=== PATIENT | male | born 1960 | race Caucasian/White ===

== ENCOUNTER 2022-10-02 14:19 | Outpatient (OUT) | payer BC, SELFPAY | END 2022-10-02 14:20 | LOC: WC 14:20 | PROVIDERS: PCP Podiatrist Foot & Ankle Surgery; Visit Provider Podiatrist Foot & Ankle Surgery | DX: T81.89XA Other complications of procedures, not elsewhere classified, initial encounter (principal) | CPT/HCPCS: 11042; 97605 ==

== ENCOUNTER 2022-10-22 14:34 | Outpatient (OUT) | payer BC, SELFPAY | END 2022-10-22 14:35 | disposition home or self-care (01) | LOC: WC 14:34 | PROVIDERS: PCP Podiatrist Foot & Ankle Surgery; Visit Provider Physician Assistant | DX: T81.89XA Other complications of procedures, not elsewhere classified, initial encounter (principal); E11.51 Type 2 diabetes mellitus with diabetic peripheral angiopathy without gangrene; E11.42 Type 2 diabetes mellitus with diabetic 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; R60.0 Localized edema; L60.3 Nail dystrophy; M86.672 Other chronic osteomyelitis, left ankle and foot; I73.9 Peripheral vascular disease, unspecified; M79.672 Pain in left foot; D50.9 Iron deficiency anemia, unspecified; L03.116 Cellulitis of left lower limb; E08.22 Diabetes mellitus due to underlying condition with diabetic chronic kidney disease; N18.30 Chronic kidney disease, stage 3 unspecified; M24.572 Contracture, left ankle; J44.9 Chronic obstructive pulmonary disease, unspecified; M21.6X2 Other acquired deformities of left foot; F32.9 Major depressive disorder, single episode, unspecified; E11.621 Type 2 diabetes mellitus with foot ulcer; E11.65 Type 2 diabetes mellitus with hyperglycemia; E11.69 Type 2 diabetes mellitus with other specified complication; I10 Essential (primary) hypertension; T14.8XXA Other injury of unspecified body region, initial encounter; G90.09 Other idiopathic peripheral autonomic neuropathy; E66.01 Morbid (severe) obesity due to excess calories; M86.162 Other acute osteomyelitis, left tibia and fibula; L40.8 Other psoriasis; L97.422 Non-pressure chronic ulcer of left heel and midfoot with fat layer exposed; I87.2 Venous insufficiency (chronic) (peripheral) | CPT/HCPCS: A6213; G0463 ==

== ENCOUNTER 2022-10-24 16:15 | Outpatient (REF) | payer BC, SELFPAY ==
[2022-10-24 17:44] LABS: Estimated Average Glucose 318 mg/dL; Glycohemoglobin A1C 12.7 % (4.5-6.2)
[2022-10-24 17:54] LABS: Alanine Aminotransferase 42 U/L (16-63); Albumin Globulin Ratio 0.6; Albumin Level 2.9 g/dL (3.4-5.0); Alkaline Phosphatase 145 U/L (46-116); Anion Gap 19.4; Aspartate Amino Transferase 31 U/L (15-37); Basophils Absolute Auto 0.1 10^3/uL (0.0-0.1); Basophils Percent Auto 0.8 % (0.2-2.0); Bilirubin Direct 0.1 mg/dL (0.0-0.2); Bilirubin Total 0.3 mg/dL (0.2-1.0); Carbon Dioxide 18.6 mmol/L (21.0-32.0); Chloride 100 mmol/L (98-107); Eosinophils Absolute Auto 0.9 10^3/uL (0.0-0.7); Eosinophils Percent Auto 6.5 % (0.9-7.0); Estimated GFR (African America 19 (>=60); Estimated GFR (Non-African Ame 15 (>=60); Globulin 5.2 g/dL; Hematocrit 44.3 % (42.0-54.0); Hemoglobin 13.8 g/dL (14.0-18.0); Immature Granulocytes Abs Auto 0.17 10^3/uL (0.00-0.03); Immature Granulocytes Pct Auto 1.3 % (0.0-0.5); Lymphocytes Absolute Auto 2.7 10^3/uL (1.2-3.8); Lymphocytes Percent Auto 20.3 % (20.5-60.0); Mean Corpuscular HGB Conc 31.2 g/dL (29.9-35.2); Mean Corpuscular Hemoglobin 29.5 pg (25.9-34.0); Mean Corpuscular Volume 94.7 fL (80.0-94.0); Monocytes Absolute Auto 1.3 10^3/uL (0.3-0.8); Monocytes Percent Auto 9.9 % (1.7-12.0); Neutrophils Absolute Auto 8.1 10^3/uL (1.4-6.5); Neutrophils Percent Auto 61.2 % (43.0-75.0); Platelet Count 312 10^3/uL (150-450); Red Blood Count 4.68 10^6/uL (4.70-6.10); Red Cell Distribution Width 15.5 % (11.0-15.0); Sodium 133 mmol/L (136-145); Thyroid Stimulating Hormone 1.575 uIU/mL (0.358-3.740); Total Protein 8.1 g/dL (6.4-8.2); White Blood Count 13.3 10^3/uL (4.0-11.0)
[2022-10-24 18:02] LABS: Erythrocyte Sedimentation Rate >130 mm/hr (<=20)
== END 2022-10-24 16:16 | disposition home or self-care (01) ==
LOC: LAB 16:15
PROVIDERS: PCP Podiatrist Foot & Ankle Surgery
DX: K76.9 Liver disease, unspecified (principal); E11.65 Type 2 diabetes mellitus with hyperglycemia; R63.4 Abnormal weight loss; R53.83 Other fatigue; I50.42 Chronic combined systolic (congestive) and diastolic (congestive) heart failure; Z79.899 Other long term (current) drug therapy
CPT/HCPCS: 36415; 80051; 80076; 82565; 83036; 83880; 84443; 84520; 85025; 85652

== ENCOUNTER 2022-11-05 13:52 | Outpatient (OUT) | payer BC, SELFPAY | END 2022-11-05 13:53 | disposition home or self-care (01) | LOC: WC 13:52 | PROVIDERS: PCP Podiatrist Foot & Ankle Surgery; Visit Provider Physician Assistant | DX: T81.89XA Other complications of procedures, not elsewhere classified, initial encounter (principal) | CPT/HCPCS: 11043; 97605 ==

== ENCOUNTER 2022-11-20 10:44 | Outpatient (OUT) | payer BC, SELFPAY | END 2022-11-20 10:45 | disposition home or self-care (01) | LOC: WC 10:45 | PROVIDERS: PCP Podiatrist Foot & Ankle Surgery; Visit Provider Podiatrist Foot & Ankle Surgery | DX: E11.621 Type 2 diabetes mellitus with foot ulcer (principal); L97.422 Non-pressure chronic ulcer of left heel and midfoot with fat layer exposed; T81.89XA Other complications of procedures, not elsewhere classified, initial encounter; L89.891 Pressure ulcer of other site, stage 1 | CPT/HCPCS: 11042; 97605 ==

== ENCOUNTER 2022-12-11 13:54 | Outpatient (OUT) | payer BC, SELFPAY | END 2022-12-11 13:55 | disposition home or self-care (01) | LOC: WC 13:54 | PROVIDERS: PCP Podiatrist Foot & Ankle Surgery; Visit Provider Podiatrist Foot & Ankle Surgery | DX: E11.621 Type 2 diabetes mellitus with foot ulcer (principal); L97.422 Non-pressure chronic ulcer of left heel and midfoot with fat layer exposed | CPT/HCPCS: 11042; 97605; A6213 ==

== ENCOUNTER 2023-01-02 13:31 | Outpatient (OUT) | payer BC, SELFPAY | END 2023-01-02 13:32 | disposition home or self-care (01) | LOC: WC 13:31 | PROVIDERS: PCP Podiatrist Foot & Ankle Surgery; Visit Provider Podiatrist Foot & Ankle Surgery | DX: E11.621 Type 2 diabetes mellitus with foot ulcer (principal); L97.422 Non-pressure chronic ulcer of left heel and midfoot with fat layer exposed; L89.892 Pressure ulcer of other site, stage 2 | CPT/HCPCS: 11042; A6213 ==

== ENCOUNTER 2023-01-28 14:46 | Observation (INO) | payer BC, SELFPAY ==
[2023-01-28] VITALS (7 sets, daily range): BP systolic 137–165; BP diastolic 69–81; PULSE 60–102; RESP 16–18; TEMP 36.4–36.6; O2SAT 96–99; BMI 29.8; BMI 33.4
--- NOTE | 2023-01-28 14:57 | US_ITS ---
The [address] [address] Patient Name: RASHARD TAN MRN: [id number] date: 1960 Sex: M Assigned Patient Location: ER Current Patient Location: ER Accession/Order Number: [id number] Exam Date: 01/28/2023 15:30 Report Date: 01/28/2023 16:33 At the request of: ALEXANDER CERNA Procedure: US venous doppler LE LT EXAM: US venous doppler LE LT HISTORY: Pain, swelling and redness and the left leg for 4 days. COMPARISON: 07/09/2019 TECHNIQUE: Multiple sonographic images of the deep veins of the left lower extremity were obtained, supplemented with Doppler. FINDINGS: The deep veins of the left lower extremity are fairly well-visualized from the groin to the mid calf. No filling defect is identified to indicate a thrombus. There is normal compression and augmentation to flow. Incidentally noted are small nodular structures in the left groin and calf, which are not simple cyst. US/US venous doppler LE LT IMPRESSION: There is no direct or indirect evidence of deep vein thrombosis in the left lower extremity at this time. A small nodular structures are noted in the left groin and calf with diminished echogenicity. The etiology is uncertain. These are not cysts. Clinical correlation is recommended. A follow-up ultrasound examination of these areas in 2-3 months is recommended. Electronically authenticated by: CHINO CABALLERO Date: 01/28/2023 16:33
--- NOTE | 2023-01-28 14:59 | ED.GENADUL1 ---
Documented by User: KIM Hatch 01/28/23 17:49 HPI - General Adult General Chief complaint: Extremity Injury, Lower Stated complaint: L LEG SWOLLEN Time Seen by Provider: 01/28/23 14:53 Source: patient Mode of arrival: Wheelchair History of Present Illness HPI narrative: patient is a 62-year-old male to history of diabetes who presents to the emergency department for the evaluation of redness to the left lower leg. Patient was seen at the wound care clinic just prior to arrival for management of his wound at the site of a previous transmetatarsal amputation. He had a wound VAC on as the wound has been improving significantly, this was recently taken off in the last week. Patient developed redness, warmth to the left proximal tibia. He denies any pain. He has had no fevers but states he generally does not feel well. His PCP started him on doxycycline three days ago. Related Data Home Medications Medication Instructions Recorded Confirmed apremilast 30 mg tablet (Otezla) 30 mg PO BID 01/28/23 01/28/23 bupropion HCl 300 mg 24 hr tablet, 300 mg PO .QD 01/28/23 01/28/23 extended release doxycycline hyclate 100 mg capsule 100 mg PO Q12H 01/28/23 01/28/23 duloxetine 60 mg capsule,delayed 60 mg PO .QD 01/28/23 01/28/23 release empagliflozin 25 mg tablet 25 mg PO QDAY 01/28/23 01/28/23 (Jardiance) famotidine 20 mg tablet 40 mg PO .QHS 01/28/23 01/28/23 finerenone 10 mg tablet (Kerendia) 10 mg PO QDAY 01/28/23 01/28/23 lidocaine HCl 2 % mucosal solution 01/28/23 (Lidocaine Viscous) methotrexate sodium 2.5 mg tablet 2.5 mg PO QWEEK 01/28/23 01/28/23 midodrine 10 mg tablet 10 mg PO TID 01/28/23 01/28/23 montelukast 10 mg tablet 10 mg PO .QHS 01/28/23 01/28/23 omeprazole 40 mg capsule,delayed 40 mg PO .ACB 01/28/23 01/28/23 release ondansetron 4 mg disintegrating 4 mg translingual Q8H 01/28/23 01/28/23 tablet rosuvastatin 20 mg tablet 20 mg PO QPM 01/28/23 01/28/23 tirzepatide 2.5 mg/0.5 mL 2.5 mg subcut QWEEK 01/28/23 01/28/23 subcutaneous pen injector (Mounjaro) vitamin B complex and vitamin C 1 cap PO QDAY 01/28/23 01/28/23 no.20-folic acid 1 mg capsule (Renal Caps) Allergies Allergy/AdvReac Type Severity Reaction Status Date / Time No Known Drug Allergies Allergy Verified 01/28/23 14:57 Review of Systems ROS Constitutional Denies: fever or chills Cardiovascular Denies: chest pain Respiratory Denies: shortness of breath Gastrointestinal Denies: abdominal pain, nausea or vomiting Integumentary/Breast Reports: rash, redness, skin pain and skin tenderness Neurological Denies: headache Allergic/Immunologic Denies: hives PFSH PFS Medical History (Updated 01/28/23 @ 18:20 by Carol Hager RN) Arteriovenous fistula of right upper extremity ?I77.0 - Arteriovenous fistula, acquired (ICD-10) Chronic kidney disease ?N18.9 - Chronic kidney disease, unspecified (ICD-10) Diabetes ?E11.9 - Type 2 diabetes mellitus without complications (ICD-10) Hyperlipidemia ?E78.5 - Hyperlipidemia, unspecified (ICD-10) Surgical History (Updated 01/28/23 @ 18:20 by Carol Hager RN) Amputation of left great toe ?S98.112A - Complete traumatic amputation of left great toe, initial encounter (ICD-10) History of appendectomy ?Z90.49 - Acquired absence of other specified parts of digestive tract (ICD-10) History of cholecystectomy ?Z90.49 - Acquired absence of other specified parts of digestive tract (ICD-10) Family History (Updated 01/28/23 @ 18:21 by Carol Hager RN) Mother Family history of CHF (congestive heart failure) Family history of diabetes mellitus Family history of hypertension Grandfather Family history of stroke Social History (Updated 01/28/23 @ 18:22 by Carol Hager RN) Within the past year, how often did you have a drink containing alcohol: never Score interpretation: A score less than 4 is consistent with normal alcohol consumption. Smoking status: Former smoker Non-prescribed substance use: denies use Exam Narrative Exam Narrative: Gen.: Awake, alert, in no distress Head: Normocephalic, atraumatic ENT: Moist mucous membranes Respiratory: No respiratory distress Extremities: transmetatarsal amputation of the left foot with dressing intact to the foot and ankle. Erythema that is almost circumferential to the proximal tibia. No open wounds or drainage. Left lower leg with dry skin that is flaky. No drainage from the calf noted. Erythema to the proximal anterior tibia is warm, bright red with some extension to the distal left thigh Psych: Normal mood and affect Neuro: No focal neuro deficit Skin: Warm, dry Constitutional Vital Signs, click to edit/add: Last Vital Signs Temp 97.6 F 01/28/23 18:11 Pulse 82 01/28/23 19:00 Resp 18 01/28/23 18:11 BP 165/81 H 01/28/23 18:11 Pulse Ox 97 01/28/23 18:11 O2 Del Method Room Air 01/28/23 18:11 Course Vital Signs Vital signs: Vital Signs Temperature 97.7 F 01/28/23 14:52 Pulse Rate 102 H 01/28/23 14:52 Respiratory Rate 16 01/28/23 14:52 Blood Pressure 139/78 01/28/23 14:52 Pulse Oximetry 99 01/28/23 14:52 Oxygen Delivery Method Room Air 01/28/23 14:52 Temperature 97.6 F 01/28/23 18:11 Pulse Rate 82 01/28/23 19:00 Respiratory Rate 18 01/28/23 18:11 Blood Pressure 165/81 H 01/28/23 18:11 Pulse Oximetry 97 01/28/23 18:11 Oxygen Delivery Method Room Air 01/28/23 18:11 Medical Decision Making MDM Narrative Medical decision making narrative: patient medicated with IV fluids, Zosyn, vancomycin. He declined any medication for pain but did feel nauseous in the Emergency Room and was given Zofran. His vital signs are stable, labs including blood cultures were obtained. White blood cell count and lactic acid are normal. CRP and sedimentation rate are elevated. Ultrasound with no evidence of deep vein thrombosis although there is an incidental nodular finding in the groin that the patient will need to have rescanned in 2-3 months. patient was reevaluated by attending physician, he is agreeable to staying for IV antibiotics. I did discuss this with Dr. Jara ([id number]) as well as Dr. Oconnor ([id number]) who accepted the patient for admission for hospitalist service. Patient is stable at time of admission. Medical Records Medical records reviewed: Yes I reviewed the patient's medical records Lab Data Lab results reviewed: Yes I reviewed the patient's lab results Labs: Lab Results 01/28/23 Range/Units 15:15 WBC 13.1 H (4.0-11.0) 10^3/uL RBC 4.57 L (4.70-6.10) 10^6/uL Hgb 13.2 L (14.0-18.0) g/dL Hct 41.6 L (42.0-54.0) % MCV 91.0 (80.0-94.0) fL MCH 28.9 (25.9-34.0) pg MCHC 31.7 (29.9-35.2) g/dL RDW 14.7 (11.0-15.0) % Plt Count 322 (150-450) 10^3/uL MPV 9.5 (9.5-13.5) fL Neut % (Auto) 70.2 (43.0-75.0) % Lymph % (Auto) 15.5 L (20.5-60.0) % [place] % (Auto) 10.3 (1.7-12.0) % Eos % (Auto) 3.2 (0.9-7.0) % Baso % (Auto) 0.2 (0.2-2.0) % Neut # (Auto) 9.2 H (1.4-6.5) 10^3/uL Lymph # (Auto) 2.0 (1.2-3.8) 10^3/uL [place] # (Auto) 1.4 H (0.3-0.8) 10^3/uL Eos # (Auto) 0.4 (0.0-0.7) 10^3/uL Baso # (Auto) 0.0 (0.0-0.1) 10^3/uL Abs Immat Gran (auto) 0.08 H (0.00-0.03) 10^3/uL Imm/Tot Granulo (auto) 0.6 H (0.0-0.5) % ESR >130 H (<=20) mm/hr PT 10.2 (9.0-11.6) sec INR 0.96 VBG pH 7.301 L (7.330-7.430) VBG pCO2 41.6 (40.0-52.0) mmHg Sodium 136 (136-145) mmol/L Potassium 4.4 (3.5-5.1) mmol/L Chloride 102 (98-107) mmol/L Carbon Dioxide 22.3 (21.0-32.0) mmol/L Anion Gap 16.1 BUN 42.0 H (7.0-18.0) mg/dL Creatinine 2.99 H (0.70-1.30) mg/dL Est GFR ( Amer) 26 L (>=60) Est GFR (Non-Af Amer) 21 L (>=60) BUN/Creatinine Ratio 14.0 Glucose 189 H (74-106) mg/dL Lactate 1.1 (0.4-2.0) mmol/L Calcium 9.3 (8.5-10.1) mg/dL Total Bilirubin 0.2 (0.2-1.0) mg/dL AST 25 (15-37) U/L ALT 34 (16-63) U/L Alkaline Phosphatase 127 H (46-116) U/L C-Reactive Protein <0.2 (<=1.0) mg/dL Total Protein 7.6 (6.4-8.2) g/dL Albumin 2.3 L (3.4-5.0) g/dL Globulin 5.3 g/dL Albumin/Globulin Ratio 0.4 Imaging Data Venous US: Attestation: I have reviewed the pertinent imaging results. Discharge Plan Discharge Chief Complaint: Extremity Injury, Lower Clinical Impression: Cellulitis of left leg Patient Disposition: Admitted As Inpatient Time of Disposition Decision: 17:48 Condition: Good Discharge Date/Time: 01/28/23 18:03 Documented by User: Ari Lee MD 01/28/23 20:25 HPI - General Adult General Chief complaint: Extremity Injury, Lower Stated complaint: L LEG SWOLLEN Time Seen by Provider: 01/28/23 14:53 Related Data Home Medications Medication Instructions Recorded Confirmed apremilast 30 mg tablet (Otezla) 30 mg PO BID 01/28/23 01/28/23 bupropion HCl 300 mg 24 hr tablet, 300 mg PO .QD 01/28/23 01/28/23 extended release doxycycline hyclate 100 mg capsule 100 mg PO Q12H 01/28/23 01/28/23 duloxetine 60 mg capsule,delayed 60 mg PO .QD 01/28/23 01/28/23 release empagliflozin 25 mg tablet 25 mg PO QDAY 01/28/23 01/28/23 (Jardiance) famotidine 20 mg tablet 40 mg PO .QHS 01/28/23 01/28/23 finerenone 10 mg tablet (Kerendia) 10 mg PO QDAY 01/28/23 01/28/23 lidocaine HCl 2 % mucosal solution 01/28/23 (Lidocaine Viscous) methotrexate sodium 2.5 mg tablet 2.5 mg PO QWEEK 01/28/23 01/28/23 midodrine 10 mg tablet 10 mg PO TID 01/28/23 01/28/23 montelukast 10 mg tablet 10 mg PO .QHS 01/28/23 01/28/23 omeprazole 40 mg capsule,delayed 40 mg PO .ACB 01/28/23 01/28/23 release ondansetron 4 mg disintegrating 4 mg translingual Q8H 01/28/23 01/28/23 tablet rosuvastatin 20 mg tablet 20 mg PO QPM 01/28/23 01/28/23 tirzepatide 2.5 mg/0.5 mL 2.5 mg subcut QWEEK 01/28/23 01/28/23 subcutaneous pen injector (Mounjaro) vitamin B complex and vitamin C 1 cap PO QDAY 01/28/23 01/28/23 no.20-folic acid 1 mg capsule (Renal Caps) Allergies Allergy/AdvReac Type Severity Reaction Status Date / Time No Known Drug Allergies Allergy Verified 01/28/23 14:57 PFSH [facility] Medical History (Updated 01/28/23 @ 18:20 by Carol Hager RN) Arteriovenous fistula of right upper extremity ?I77.0 - Arteriovenous fistula, acquired (ICD-10) Chronic kidney disease ?N18.9 - Chronic kidney disease, unspecified (ICD-10) Diabetes ?E11.9 - Type 2 diabetes mellitus without complications (ICD-10) Hyperlipidemia ?E78.5 - Hyperlipidemia, unspecified (ICD-10) Surgical History (Updated 01/28/23 @ 18:20 by Carol Hager RN) Amputation of left great toe ?S98.112A - Complete traumatic amputation of left great toe, initial encounter (ICD-10) History of appendectomy ?Z90.49 - Acquired absence of other specified parts of digestive tract (ICD-10) History of cholecystectomy ?Z90.49 - Acquired absence of other specified parts of digestive tract (ICD-10) Family History (Updated 01/28/23 @ 18:21 by Carol Hager RN) Mother Family history of CHF (congestive heart failure) Family history of diabetes mellitus Family history of hypertension Grandfather Family history of stroke Social History (Updated 01/28/23 @ 18:22 by Carol Hager RN) Within the past year, how often did you have a drink containing alcohol: never Score interpretation: A score less than 4 is consistent with normal alcohol consumption. Smoking status: Former smoker Non-prescribed substance use: denies use Exam Constitutional Vital Signs, click to edit/add: Last Vital Signs Temp 97.6 F 01/28/23 18:11 Pulse 82 01/28/23 19:00 Resp 18 01/28/23 18:11 BP 165/81 H 01/28/23 18:11 Pulse Ox 97 01/28/23 18:11 O2 Del Method Room Air 01/28/23 18:11 Course Vital Signs Vital signs: Vital Signs Temperature 97.7 F 01/28/23 14:52 Pulse Rate 102 H 01/28/23 14:52 Respiratory Rate 16 01/28/23 14:52 Blood Pressure 139/78 01/28/23 14:52 Pulse Oximetry 99 01/28/23 14:52 Oxygen Delivery Method Room Air 01/28/23 14:52 Temperature 97.6 F 01/28/23 18:11 Pulse Rate 82 01/28/23 19:00 Respiratory Rate 18 01/28/23 18:11 Blood Pressure 165/81 H 01/28/23 18:11 Pulse Oximetry 97 01/28/23 18:11 Oxygen Delivery Method Room Air 01/28/23 18:11 Medical Decision Making MDM Narrative Medical decision making narrative: patient medicated with IV fluids, Zosyn, vancomycin. He declined any medication for pain but did feel nauseous in the Emergency Room and was given Zofran. His vital signs are stable, labs including blood cultures were obtained. White blood cell count and lactic acid are normal. CRP and sedimentation rate are elevated. Ultrasound with no evidence of deep vein thrombosis although there is an incidental nodular finding in the groin that the patient will need to have rescanned in 2-3 months. patient was reevaluated by attending physician, he is agreeable to staying for IV antibiotics. I did discuss this with Dr. Jara ([id number]) as well as Dr. Oconnor ([id number]) who accepted the patient for admission for hospitalist service. Patient is stable at time of admission. I, Dr Lee, have reviewed the above progress note and course of action in the ER; agree with the above. I have personally seen and evaluated this patient, gone over history and physical, and discussed disposition and treatment plan with the patient. Lab Data Labs: Lab Results 01/28/23 Range/Units 15:15 WBC 13.1 H (4.0-11.0) 10^3/uL RBC 4.57 L (4.70-6.10) 10^6/uL Hgb 13.2 L (14.0-18.0) g/dL Hct 41.6 L (42.0-54.0) % MCV 91.0 (80.0-94.0) fL MCH 28.9 (25.9-34.0) pg MCHC 31.7 (29.9-35.2) g/dL RDW 14.7 (11.0-15.0) % Plt Count 322 (150-450) 10^3/uL MPV 9.5 (9.5-13.5) fL Neut % (Auto) 70.2 (43.0-75.0) % Lymph % (Auto) 15.5 L (20.5-60.0) % [place] % (Auto) 10.3 (1.7-12.0) % Eos % (Auto) 3.2 (0.9-7.0) % Baso % (Auto) 0.2 (0.2-2.0) % Neut # (Auto) 9.2 H (1.4-6.5) 10^3/uL Lymph # (Auto) 2.0 (1.2-3.8) 10^3/uL [place] # (Auto) 1.4 H (0.3-0.8) 10^3/uL Eos # (Auto) 0.4 (0.0-0.7) 10^3/uL Baso # (Auto) 0.0 (0.0-0.1) 10^3/uL Abs Immat Gran (auto) 0.08 H (0.00-0.03) 10^3/uL Imm/Tot Granulo (auto) 0.6 H (0.0-0.5) % ESR >130 H (<=20) mm/hr PT 10.2 (9.0-11.6) sec INR 0.96 VBG pH 7.301 L (7.330-7.430) VBG pCO2 41.6 (40.0-52.0) mmHg Sodium 136 (136-145) mmol/L Potassium 4.4 (3.5-5.1) mmol/L Chloride 102 (98-107) mmol/L Carbon Dioxide 22.3 (21.0-32.0) mmol/L Anion Gap 16.1 BUN 42.0 H (7.0-18.0) mg/dL Creatinine 2.99 H (0.70-1.30) mg/dL Est GFR ( Amer) 26 L (>=60) Est GFR (Non-Af Amer) 21 L (>=60) BUN/Creatinine Ratio 14.0 Glucose 189 H (74-106) mg/dL Lactate 1.1 (0.4-2.0) mmol/L Calcium 9.3 (8.5-10.1) mg/dL Total Bilirubin 0.2 (0.2-1.0) mg/dL AST 25 (15-37) U/L ALT 34 (16-63) U/L Alkaline Phosphatase 127 H (46-116) U/L C-Reactive Protein <0.2 (<=1.0) mg/dL Total Protein 7.6 (6.4-8.2) g/dL Albumin 2.3 L (3.4-5.0) g/dL Globulin 5.3 g/dL Albumin/Globulin Ratio 0.4 Discharge Plan Discharge Chief Complaint: Extremity Injury, Lower Clinical Impression: Cellulitis of left leg Patient Disposition: Admitted As Inpatient Time of Disposition Decision: 17:48 Condition: Good Discharge Date/Time: 01/28/23 18:03
[2023-01-28] MEDS: 0.9 % SODIUM CHLORIDE 1,000 ML 999 ML IV (15:32)
[2023-01-28] MEDS: PIPERACILLIN SODIUM/TAZOBACTAM 4.5 GM in 0.9 % SODIUM CHLORIDE 50 ML IV (15:33)
[2023-01-28 15:54] LABS: PCO2 VBG 41.6 mmHg (40.0-52.0); pH VBG 7.301 (7.330-7.430)
[2023-01-28 15:57] LABS: Basophils Percent Auto 0.2 % (0.2-2.0); Eosinophils Absolute Auto 0.4 10^3/uL (0.0-0.7); Eosinophils Percent Auto 3.2 % (0.9-7.0); Hematocrit 41.6 % (42.0-54.0); Hemoglobin 13.2 g/dL (14.0-18.0); Immature Granulocytes Abs Auto 0.08 10^3/uL (0.00-0.03); Immature Granulocytes Pct Auto 0.6 % (0.0-0.5); Lymphocytes Percent Auto 15.5 % (20.5-60.0); Mean Corpuscular HGB Conc 31.7 g/dL (29.9-35.2); Mean Corpuscular Hemoglobin 28.9 pg (25.9-34.0); Mean Platelet Volume 9.5 fL (9.5-13.5); Monocytes Absolute Auto 1.4 10^3/uL (0.3-0.8); Monocytes Percent Auto 10.3 % (1.7-12.0); Neutrophils Absolute Auto 9.2 10^3/uL (1.4-6.5); Neutrophils Percent Auto 70.2 % (43.0-75.0); Platelet Count 322 10^3/uL (150-450); Red Blood Count 4.57 10^6/uL (4.70-6.10); Red Cell Distribution Width 14.7 % (11.0-15.0); White Blood Count 13.1 10^3/uL (4.0-11.0)
[2023-01-28 16:01] LABS: Erythrocyte Sedimentation Rate >130 mm/hr (<=20)
[2023-01-28 16:07] LABS: INR 0.96; Prothrombin Time 10.2 sec (9.0-11.6)
[2023-01-28 16:08] LABS: Alanine Aminotransferase 34 U/L (16-63); Albumin Globulin Ratio 0.4; Albumin Level 2.3 g/dL (3.4-5.0); Alkaline Phosphatase 127 U/L (46-116); Anion Gap 16.1; Aspartate Amino Transferase 25 U/L (15-37); Bilirubin Total 0.2 mg/dL (0.2-1.0); C Reactive Protein <0.2 mg/dL (<=1.0); Calcium 9.3 mg/dL (8.5-10.1); Carbon Dioxide 22.3 mmol/L (21.0-32.0); Chloride 102 mmol/L (98-107); Estimated GFR (African America 26 (>=60); Estimated GFR (Non-African Ame 21 (>=60); Globulin 5.3 g/dL; Glucose 189 mg/dL (74-106); Potassium 4.4 mmol/L (3.5-5.1); Sodium 136 mmol/L (136-145); Total Protein 7.6 g/dL (6.4-8.2)
[2023-01-28 16:11] LABS: Lactate/Lactic Acid 1.1 mmol/L (0.4-2.0)
[2023-01-28] MEDS: VANCOMYCIN HCL 1,000 MG in 0.9 % SODIUM CHLORIDE 500 ML 250 MG IV (16:39)
[2023-01-28] MEDS: ONDANSETRON PF 4 MG/2 ML VIAL IV (17:27)
[2023-01-28 20:21] LABS: Glucometer 191 mg/dL (74-106)
[2023-01-28] MEDS: INSULIN ASPART 300 UNIT/3 ML PEN SUBQ (21:23)
[2023-01-28] MEDS: MONTELUKAST SODIUM 10 MG TABLET PO (21:24)
[2023-01-28] MEDS: FAMOTIDINE 20 MG TABLET 40 MG PO (21:24)
[2023-01-28] MEDS: HEPARIN SODIUM (PORCINE) 5,000 UNIT/ML VIAL 5000 UNIT SUBQ (21:24)
--- NOTE | 2023-01-28 22:45 | PC.NURSE ---
Dressing to left foot removed. Patient has no toes to left foot. Open area to bottom below big toe. No active drainage observed. Very small open area observed. Telfa applied over open area. Foot wrapped with kerlex dressing. Redness observed going up inner right side of left to around knee cap. Patient states it's starting to itch .
[2023-01-28] MEDS: 0.9 % SODIUM CHLORIDE 250 ML IV.SOLN 30 ML IV (23:00)
[2023-01-28] MEDS: PIPERACILLIN SODIUM/TAZOBACTAM 3.375 GM in 0.9 % SODIUM CHLORIDE 50 ML IV (23:14)
[2023-01-29] VITALS (18 sets, daily range): BP systolic 99–149; BP diastolic 66–79; PULSE 72–98; RESP 18–20; TEMP 36.6–36.8; O2SAT 97
[2023-01-29] MEDS: OXYCODONE HCL 5 MG TABLET PO (00:30)
[2023-01-29] MEDS: HEPARIN SODIUM (PORCINE) 5,000 UNIT/ML VIAL 5000 UNIT SUBQ ×3 (04:59→19:55)
[2023-01-29 06:04] LABS: Basophils Absolute Auto 0.1 10^3/uL (0.0-0.1); Basophils Percent Auto 0.4 % (0.2-2.0); Eosinophils Absolute Auto 0.6 10^3/uL (0.0-0.7); Eosinophils Percent Auto 4.8 % (0.9-7.0); Hematocrit 39.6 % (42.0-54.0); Hemoglobin 12.2 g/dL (14.0-18.0); Immature Granulocytes Abs Auto 0.14 10^3/uL (0.00-0.03); Immature Granulocytes Pct Auto 1.1 % (0.0-0.5); Lymphocytes Absolute Auto 2.6 10^3/uL (1.2-3.8); Lymphocytes Percent Auto 20.9 % (20.5-60.0); Mean Corpuscular HGB Conc 30.8 g/dL (29.9-35.2); Mean Corpuscular Hemoglobin 28.3 pg (25.9-34.0); Mean Corpuscular Volume 91.9 fL (80.0-94.0); Mean Platelet Volume 9.6 fL (9.5-13.5); Monocytes Absolute Auto 0.9 10^3/uL (0.3-0.8); Monocytes Percent Auto 7.6 % (1.7-12.0); Neutrophils Absolute Auto 8.1 10^3/uL (1.4-6.5); Neutrophils Percent Auto 65.2 % (43.0-75.0); Platelet Count 327 10^3/uL (150-450); Red Blood Count 4.31 10^6/uL (4.70-6.10); Red Cell Distribution Width 14.6 % (11.0-15.0); White Blood Count 12.4 10^3/uL (4.0-11.0)
[2023-01-29 06:23] LABS: Alanine Aminotransferase 31 U/L (16-63); Albumin Globulin Ratio 0.5; Albumin Level 2.3 g/dL (3.4-5.0); Alkaline Phosphatase 119 U/L (46-116); Aspartate Amino Transferase 25 U/L (15-37); BUN Creatinine Ratio 13.1; Bilirubin Total 0.3 mg/dL (0.2-1.0); Calcium 9.2 mg/dL (8.5-10.1); Carbon Dioxide 19.2 mmol/L (21.0-32.0); Chloride 103 mmol/L (98-107); Estimated GFR (African America 25 (>=60); Estimated GFR (Non-African Ame 21 (>=60); Glucose 95 mg/dL (74-106); Potassium 4.2 mmol/L (3.5-5.1); Sodium 135 mmol/L (136-145); Total Protein 7.3 g/dL (6.4-8.2)
[2023-01-29] MEDS: OMEPRAZOLE 40 MG CAPSULE.DR PO (06:25)
[2023-01-29] MEDS: PIPERACILLIN SODIUM/TAZOBACTAM 3.375 GM in 0.9 % SODIUM CHLORIDE 50 ML IV ×3 (07:28→23:02)
[2023-01-29] MEDS: BUPROPION HCL 150 MG XL TABLET 24H 300 MG PO (08:36)
[2023-01-29] MEDS: DULOXETINE HCL 60 MG CAPSULE.DR PO (08:37)
[2023-01-29] MEDS: LACTATED RINGER'S SOLUTION 1,000 ML 100 ML IV ×2 (08:37→19:18)
[2023-01-29 11:11] LABS: Glucometer 94 mg/dL (74-106)
--- NOTE | 2023-01-29 11:59 | CM.NOTE ---
Rounds made with Dr. Oconnor. Await Podiatry Consult for plan.
--- NOTE | 2023-01-29 13:14 | W.PM.WC ---
Wound Consult Note Assessment and Plan (1) Cellulitis of left leg: Plan Patient seen for wound consult left plantar foot. Patient was seen in outpatient wound clinic yesterday and found to have cellulitis to left lower leg from knee down to foot. Patient was also not feeling well at that time. He was sent to ER for evaluation. Patient seen today for assessment. Redness in LLE has improved since yesterday as well as warmth and pain. Patient reports he feels better today overall, just tired. Patient with open ulcer remaining on left plantar foot. Size has improved since yesterday. Small open area noted measuring 0.3cmx0.3cmx0.2cm. Periwound intact with gentian gonzalo in place. Collagen remains in place since yesterday as well. Applied ABD and kerlix to foot today. Will continue dressing changes every other day. Resume collagen once discharged. No photos taken of ulcer today due to technical difficulties. Please call [phone] with any questions or concerns.
[2023-01-29] MEDS: VANCOMYCIN HCL 1,000 MG in 0.9 % SODIUM CHLORIDE 250 ML 250 MG IV (13:50)
--- NOTE | 2023-01-29 14:17 | SWNOTE1 ---
Pt is current with [facility] , nursing comes in 3x a week.
[2023-01-29 15:49] LABS: Glucometer 224 mg/dL (74-106)
--- NOTE | 2023-01-29 16:21 | P.HP_ITS ---
H&P: HPI History of Present Illness Chief complaint: L LEG SWOLLEN, Cellulitis of Left Leg Narrative: 62 y o male presents with pain,swelling, erythema of his RLE that extended upto his knees, started abvout a week ago and was started on Keflex as outpatient for it. He noticed worsening of his symptoms while on abx and reports generalized malaise, fatigue and pain all over and was sent to ED after he visit wound care and podiatry office for removal of wound vac for old non healing wound from [facility] for diabetic foot infection. He was started on IV vancomycin and zosyn and admitted for sepsis sec to cellulitis after failing outpatient oral abx therapy. This morning when I saw him, there is considerable improvement in his erythema, swelling and pain but there is still some left over erythema that extends upto his knees. Denies fever,chills Feeling better than yesterday. Review of Systems ROS Status of ROS 10 or more systems reviewed and unremarkable except as noted in history and below [facility] Medical History Arteriovenous fistula of right upper extremity ?I77.0 - Arteriovenous fistula, acquired (ICD-10) Chronic kidney disease ?N18.9 - Chronic kidney disease, unspecified (ICD-10) Diabetes ?E11.9 - Type 2 diabetes mellitus without complications (ICD-10) Hyperlipidemia ?E78.5 - Hyperlipidemia, unspecified (ICD-10) Immunocompromised ?D84.9 - Immunodeficiency, unspecified (ICD-10) Psoriasis ?L40.9 - Psoriasis, unspecified (ICD-10) Sepsis ?A41.9 - Sepsis, unspecified organism (ICD-10) Surgical History Amputation of left great toe ?S98.112A - Complete traumatic amputation of left great toe, initial encounter (ICD-10) History of appendectomy ?Z90.49 - Acquired absence of other specified parts of digestive tract (ICD- 10) History of cholecystectomy ?Z90.49 - Acquired absence of other specified parts of digestive tract (ICD- 10) History of transmetatarsal amputation of foot ?Z89.439 - Acquired absence of unspecified foot (ICD-10) Family History Mother Family history of CHF (congestive heart failure) Family history of diabetes mellitus Family history of hypertension Grandfather Family history of stroke Social History Within the past year, how often did you have a drink containing alcohol: never Score interpretation: A score less than 4 is consistent with normal alcohol consumption. Smoking status: Former smoker Non-prescribed substance use: denies use Meds Home Medications and Allergies Home Medications Medication Instructions Recorded Confirmed Type apremilast 30 mg tablet (Otezla) 30 mg PO BID 01/28/23 01/28/23 History bupropion HCl 300 mg 24 hr tablet, 300 mg PO .QD 01/28/23 History extended release doxycycline hyclate 100 mg capsule 100 mg PO BID 01/28/23 01/29/23 History duloxetine 60 mg capsule,delayed 60 mg PO .QD 01/28/23 01/28/23 History release empagliflozin 25 mg tablet 25 mg PO QDAY 01/28/23 01/28/23 History (Jardiance) finerenone 10 mg tablet (Kerendia) 10 mg PO QDAY 01/28/23 01/28/23 History midodrine 10 mg tablet 10 mg PO TID 01/28/23 01/28/23 History montelukast 10 mg tablet 10 mg PO .QHS 01/28/23 01/28/23 History omeprazole 40 mg capsule,delayed 40 mg PO .ACB 01/28/23 01/28/23 History release ondansetron 4 mg disintegrating 4 mg translingual Q8H 01/28/23 01/28/23 History tablet rosuvastatin 20 mg tablet 20 mg PO QPM 01/28/23 01/28/23 History tirzepatide 2.5 mg/0.5 mL 2.5 mg subcut QWEEK 01/28/23 01/28/23 History subcutaneous pen injector (Mounjaro) vitamin B complex and vitamin C 1 cap PO QDAY 01/28/23 01/28/23 History no.20-folic acid 1 mg capsule (Renal Caps) famotidine 40 mg tablet (Pepcid) 40 mg PO .qhs 01/29/23 01/29/23 History Allergies Allergy/AdvReac Type Severity Reaction Status Date / Time No Known Drug Allergies Allergy Verified 01/28/23 14:57 Exam Constitutional Vital Signs, click to edit/add: Last Vital Signs Temp 97.9 F 01/29/23 13:56 Pulse 85 01/29/23 13:56 Resp 18 01/29/23 13:56 BP 147/66 H 01/29/23 13:56 Pulse Ox 97 01/29/23 13:56 O2 Del Method Room Air 01/29/23 13:56 Documenting provider has reviewed patient's vital signs: yes Common normals: no apparent distress and oriented x3 General appearance: cooperative [facility] Common normals: normocephalic and head/scalp atraumatic Head and scalp: normocephalic and atraumatic Eye Common normals: conjunctivae normal and no scleral icterus Conjunctiva: conjunctiva(e) normal Respiratory Common normals: normal respiratory effort and clear to auscultation bilaterally Effort & inspection: able to speak in complete sentences Auscultation: clear to auscultation bilaterally Cardio Common normals: regular rate, S1 normal heart sound and S2 normal heart sound Rate: regular rate Heart sounds: S1 normal and S2 normal GI Common normals: Normal to inspection, nondistended, normoactive bowel sounds present, soft to palpation, non-tender and no hepatosplenomegaly Palpation: soft and no hepatosplenomegaly Extremity Right lower extremity: lower leg (erythema, tenderness extending from ankle upto knee joint) and foot and digits (TMA, small one cm open wound on dorsum of foot. ) Neuro Common normals: oriented x3, moves all extremities and no focal motor deficits Psych Common normals: mental status grossly normal, denies hallucinations, denies homicidal ideation and denies suicidal ideation Results Labs Labs: Short CBC 01/29/23 Range/Units 05:16 WBC 12.4 H (4.0-11.0) 10^3/uL Hgb 12.2 L (14.0-18.0) g/dL Hct 39.6 L (42.0-54.0) % Plt Count 327 (150-450) 10^3/uL BMP 01/29/23 05:16 Sodium 135 L Potassium 4.2 Chloride 103 Carbon Dioxide 19.2 L BUN 40.0 H Creatinine 3.06 H Glucose 95 Calcium 9.2 Liver Function 01/29/23 Range/Units 05:16 Total Bilirubin 0.3 (0.2-1.0) mg/dL AST 25 (15-37) U/L ALT 31 (16-63) U/L Alkaline Phosphatase 119 H (46-116) U/L Albumin 2.3 L (3.4-5.0) g/dL ABG ABG results: 01/28/23 15:15 VBG pH 7.301 L VBG pCO2 41.6 Assessment and Plan Assessment and Plan (1) Cellulitis of right leg: Assessment and Plan: RLE cellulitis, failed outpatient oral abx therapy. On IV vancomycin/zosyn. Significant improvement while on broad spectrum abx but still has sig erythema. C/w same. Monitor closely. F/u cx. (2) Diabetes: Assessment and Plan: C/w SSI while inpaitent. 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 (4) Psoriasis: Assessment and Plan: On apremilast and Mtx. C/w same (5) Immunocompromised: Assessment and Plan: Due to Mtx and Aprelimast. At high risk of infections from resistant organisms. Monitor closely. Fu cx. (6) Hyperlipidemia: Assessment and Plan: C/w statin
[2023-01-29] MEDS: INSULIN ASPART 300 UNIT/3 ML PEN SUBQ ×2 (17:28→21:43)
[2023-01-29] MEDS: POLYETHYLENE GLYCOL 3350 17 GM POWDER PACKET PO (17:31)
[2023-01-29] MEDS: DOCUSATE SODIUM 100 MG CAPSULE PO (17:31)
[2023-01-29] MEDS: ATORVASTATIN CALCIUM 40 MG TABLET PO (19:55)
--- NOTE | 2023-01-29 21:36 | PC.NURSE ---
Pt denies having any chest discomfort or does not feel any strange rhythm. Pt stated, he was asleep . enamel dipper checked patches and the white patch coming off. Replaced patch and explained to pt if he feels anything strange or painful in his chest to let us know. Will be monitoring. Maren Santoyo RN
[2023-01-29] MEDS: MONTELUKAST SODIUM 10 MG TABLET PO (21:39)
[2023-01-29] MEDS: FAMOTIDINE 20 MG TABLET 40 MG PO (21:39)
[2023-01-29 21:43] LABS: Glucometer 247 mg/dL (74-106)
[2023-01-30 01:45] VITALS: PULSE 76
[2023-01-30 03:35] VITALS: PULSE 75
[2023-01-30] MEDS: HEPARIN SODIUM (PORCINE) 5,000 UNIT/ML VIAL 5000 UNIT SUBQ (04:20)
[2023-01-30 04:40] LABS: Basophils Percent Auto 0.4 % (0.2-2.0); Eosinophils Absolute Auto 0.5 10^3/uL (0.0-0.7); Eosinophils Percent Auto 5.1 % (0.9-7.0); Hematocrit 34.5 % (42.0-54.0); Hemoglobin 10.6 g/dL (14.0-18.0); Immature Granulocytes Abs Auto 0.18 10^3/uL (0.00-0.03); Lymphocytes Absolute Auto 1.8 10^3/uL (1.2-3.8); Lymphocytes Percent Auto 19.3 % (20.5-60.0); Mean Corpuscular HGB Conc 30.7 g/dL (29.9-35.2); Mean Corpuscular Volume 91.3 fL (80.0-94.0); Monocytes Absolute Auto 0.8 10^3/uL (0.3-0.8); Monocytes Percent Auto 9.1 % (1.7-12.0); Neutrophils Absolute Auto 5.9 10^3/uL (1.4-6.5); Neutrophils Percent Auto 64.1 % (43.0-75.0); Platelet Count 301 10^3/uL (150-450); Red Blood Count 3.78 10^6/uL (4.70-6.10); Red Cell Distribution Width 14.5 % (11.0-15.0); White Blood Count 9.2 10^3/uL (4.0-11.0)
[2023-01-30 04:57] LABS: Alanine Aminotransferase 14 U/L (16-63); Albumin Globulin Ratio 0.4; Albumin Level 1.9 g/dL (3.4-5.0); Alkaline Phosphatase 92 U/L (46-116); Anion Gap 12.1; Aspartate Amino Transferase 17 U/L (15-37); BUN Creatinine Ratio 12.9; Bilirubin Total 0.3 mg/dL (0.2-1.0); Calcium 8.3 mg/dL (8.5-10.1); Carbon Dioxide 22.2 mmol/L (21.0-32.0); Chloride 105 mmol/L (98-107); Estimated GFR (African America 26 (>=60); Estimated GFR (Non-African Ame 21 (>=60); Globulin 4.3 g/dL; Glucose 130 mg/dL (74-106); Potassium 4.3 mmol/L (3.5-5.1); Sodium 135 mmol/L (136-145); Total Protein 6.2 g/dL (6.4-8.2)
[2023-01-30 05:16] VITALS: BP 147/73; PULSE 79; RESP 20; TEMP 36.6; O2SAT 96
[2023-01-30 05:54] VITALS: PULSE 84
--- NOTE | 2023-01-30 05:55 | PC.NURSE ---
Monitor shows SR with occasional PVcs noted.
[2023-01-30 07:00] VITALS: PULSE 96
[2023-01-30] MEDS: OMEPRAZOLE 40 MG CAPSULE.DR PO (08:20)
[2023-01-30] MEDS: LACTATED RINGER'S SOLUTION 1,000 ML 100 ML IV (08:20)
[2023-01-30] MEDS: Apremilast [Otezla] 30 MG 30 EACH PO (08:21)
[2023-01-30] MEDS: PIPERACILLIN SODIUM/TAZOBACTAM 3.375 GM in 0.9 % SODIUM CHLORIDE 50 ML IV (08:25)
[2023-01-30 09:00] VITALS: PULSE 84
--- NOTE | 2023-01-30 09:53 | P.DS_ITS ---
DS: Providers Provider Date of admission: 01/28/23 18:03 Primary care physician: Imer Zambrano Consults: 01/28/23 17:47 Consult to Podiatry Routine Consulting Provider: Imer Zambrano Reason for consultation: Cellulitis Attending physician on discharge: Shaikh Elvin Discharging clinician: Shaikh Elvin Anticipated date of discharge: 01/30/23 DS: Diagnosis Discharge Diagnosis (1) Cellulitis of left leg: Assessment and plan: P/w cellulitis of left leg - treated with IV vancomycin/Zosyn as failed outpatient oral abx, immunocompromised status. Improved significantly over the course of hospital stay and is stable to go home on oral Clindamycin (2) Diabetes: Assessment and plan: Patient should not be on Farxiga with hx of recurrent diabetic foot infection and prior TMA as SGLT2 inhibitors are avoided in patients with hx of amputation. C/w rest of his medications. I am also on the fence about Mounjaro with his current renal function as there is very high risk of MARISOL, worsening renal function with GLP/GIP agonists in patients with CKD 4-5 I will recommend stopping those on discharge and defer further care to his PCP who can f/u with him as outpatient. C/w basal/bolus insulin as before. (3) Chronic kidney disease: Assessment and plan: CKD 4-5 Follow up with Nephrology. (4) Psoriasis: Assessment and plan: Stable. C/w home meds. (5) Hyperlipidemia: Assessment and plan: c/w statin DS: Summary Hospital Course Hospital Course: 62 y o male presents with pain, swelling, erythema of his LLE that extended upto his knees, started abvout a week ago and was started on Keflex as outpatient for it. He noticed worsening of his symptoms while on abx and and was sent to ED from wound care. He was started on IV vancomycin and Zosyn and admitted for cellulitis after failing outpatient oral abx therapy. Patient had considerable improvement in erythema, swelling and pain over the course of hospital stay and is stable for discharge on oral Clindamycin. Status at Discharge Functional status at discharge: independent ambulation Overall status at discharge: patient is back to baseline Time Spent with Patient Time attestation: Total time spent providing and/or coordinating discharge services: Time spent: greater than 30 minutes Exam Constitutional Vital Signs, click to edit/add: Last Vital Signs Temp 97.8 F 01/30/23 05:16 Pulse 96 H 01/30/23 07:00 Resp 20 01/30/23 05:16 BP 147/73 H 01/30/23 05:16 Pulse Ox 96 01/30/23 05:16 O2 Del Method Room Air 01/30/23 05:16 Documenting provider has reviewed patient's vital signs: yes Common normals: no apparent distress and oriented x3 General appearance: cooperative [facility] Common normals: normocephalic and head/scalp atraumatic Head and scalp: normocephalic and atraumatic Eye Common normals: conjunctivae normal and no scleral icterus Conjunctiva: conjunctiva(e) normal Respiratory Common normals: normal respiratory effort and clear to auscultation bilaterally Effort & inspection: able to speak in complete sentences Auscultation: clear to auscultation bilaterally Cardio Common normals: regular rate, S1 normal heart sound and S2 normal heart sound Rate: regular rate Heart sounds: S1 normal and S2 normal GI Common normals: Normal to inspection, nondistended, normoactive bowel sounds present, soft to palpation, non-tender and no hepatosplenomegaly Palpation: soft and no hepatosplenomegaly Extremity Other: Left leg cellulitis more or less resolved with minimal residual erythema noted. Neuro Common normals: oriented x3, moves all extremities and no focal motor deficits Psych Common normals: mental status grossly normal, denies hallucinations, denies homicidal ideation and denies suicidal ideation DS: Data Data Completed and Pending Labs on day of discharge: Labs from last 24 hours 01/30/23 01/29/23 01/29/23 04:05 21:42 15:47 WBC 9.2 RBC 3.78 L Hgb 10.6 L Hct 34.5 L MCV 91.3 MCH 28.0 MCHC 30.7 RDW 14.5 Plt Count 301 MPV 9.0 L Neut % (Auto) 64.1 Lymph % (Auto) 19.3 L Roosevelt % (Auto) 9.1 Eos % (Auto) 5.1 Baso % (Auto) 0.4 Neut # (Auto) 5.9 Lymph # (Auto) 1.8 Roosevelt # (Auto) 0.8 Eos # (Auto) 0.5 Baso # (Auto) 0.0 Abs Immat Gran (auto) 0.18 H Imm/Tot Granulo (auto) 2.0 H Sodium 135 L Potassium 4.3 Chloride 105 Carbon Dioxide 22.2 Anion Gap 12.1 BUN 39.0 H Creatinine 3.03 H Est GFR ( Amer) 26 L Est GFR (Non-Af Amer) 21 L BUN/Creatinine Ratio 12.9 Glucose 130 H Calcium 8.3 L Total Bilirubin 0.3 AST 17 ALT 14 L Alkaline Phosphatase 92 Total Protein 6.2 L Albumin 1.9 L Globulin 4.3 Albumin/Globulin Ratio 0.4 POC Glucose 247 H 224 H 01/29/23 11:10 WBC RBC Hgb Hct MCV MCH MCHC RDW Plt Count MPV Neut % (Auto) Lymph % (Auto) Roosevelt % (Auto) Eos % (Auto) Baso % (Auto) Neut # (Auto) Lymph # (Auto) Roosevelt # (Auto) Eos # (Auto) Baso # (Auto) Abs Immat Gran (auto) Imm/Tot Granulo (auto) Sodium Potassium Chloride Carbon Dioxide Anion Gap BUN Creatinine Est GFR ( Amer) Est GFR (Non-Af Amer) BUN/Creatinine Ratio Glucose Calcium Total Bilirubin AST ALT Alkaline Phosphatase Total Protein Albumin Globulin Albumin/Globulin Ratio POC Glucose 94 Discharge Plan Discharge Disposition: Home, Self-Care Condition: Good Discharge Medications: New clindamycin HCl 300 mg capsule 300 mg PO Q6H 7 Days Qty: 28 0RF Continued omeprazole 40 mg capsule,delayed release(DR/EC) 40 mg PO .ACB montelukast 10 mg tablet 10 mg PO .QHS Renal Caps 1 mg capsule 1 cap PO QDAY rosuvastatin 20 mg tablet 20 mg PO QPM Otezla 30 mg tablet 30 mg PO QDAY Kerendia 10 mg tablet 10 mg PO QDAY famotidine [Pepcid] 40 mg tablet 40 mg PO .qhs tiotropium bromide [Spiriva with HandiHaler] 18 mcg capsule, w/inhalation device 1 cap inhalation DAILY PRN (Reason: shortness of breath or wheezing) Rx Instructions: puncture 1 cap using device; one dose = 2 inhalations insulin degludec [Tresiba FlexTouch U-200] 200 unit/mL (3 mL) insulin pen 110 unit subcut DAILY insulin lispro [Humalog KwikPen Insulin] 100 unit/mL insulin pen 1 sliding scale dose subcut AC Rx Instructions: 2-6 units per sliding scale with meals Discontinued doxycycline hyclate 100 mg capsule 100 mg PO BID Patient Comments: started 01/26/23 for 20 days ondansetron 4 mg tablet,disintegrating 4 mg translingual Q8H Jardiance 25 mg tablet 25 mg PO QDAY Mounjaro 2.5 mg/0.5 mL pen injector 2.5 mg SUBCUT QWEEK Rx Instructions: WHICH DAY OF THE WEEK? Activity: resume usual activities as tolerated Diet: advance to your usual diet Patient Instructions: Clindamycin (By mouth) (Cleocin, Cleocin HCl, Cleocin Pediatric), Cellulitis (GEN) Forms: Portal Instructions Follow Up Appointments: F/u PCP in 1-2 weeks F/u Podiatry in 2-3 weeks
--- NOTE | 2023-01-30 10:03 | CM.NOTE ---
Rounds made with Dr. Oconnor. Plan to discharge today and return home with [facility] as before.
--- NOTE | 2023-01-30 11:48 | SWNOTE1 ---
KATERIN sent updates and discharge orders to Ties[facility]
--- NOTE | 2023-02-01 11:23 | CM.DCFOLLOWU ---
First discharge follow up call attempted, no answer.
--- NOTE | 2023-02-04 14:34 | CM.DCFOLLOWU ---
Person spoke with: Alexander How are you feeling? Much better How is your pain? No pain Did you understand your discharge instructions? Yes Do you have any questions about your discharge instructions? No Were you given any prescriptions at discharge? Yes Were you able to get your prescriptions filled? Yes Do you understand how to take your medications as ordered? Yes Do you have any questions about your follow up appointment and do you plan to keep your follow up appointment? Scheduled with primary care doctor and podiatry. Is there anything else that you would like to discuss? No Questions/Comments/Concerns/Other:
== END 2023-01-30 11:15 | disposition home or self-care (01) ==
LOC: ER 17:48 → MS 01-29 08:14
PROVIDERS: Physician Assistant; Admitting Provider Internal Medicine; Emergency Provider Emergency Medicine; PCP Podiatrist Foot & Ankle Surgery; Visit Provider Internal Medicine
DX: E11.628 Type 2 diabetes mellitus with other skin complications (principal); L03.116 Cellulitis of left lower limb; E78.5 Hyperlipidemia, unspecified; E11.22 Type 2 diabetes mellitus with diabetic chronic kidney disease; N18.5 Chronic kidney disease, stage 5; L40.9 Psoriasis, unspecified; L97.429 Non-pressure chronic ulcer of left heel and midfoot with unspecified severity; D84.9 Immunodeficiency, unspecified; Z90.49 Acquired absence of other specified parts of digestive tract; E11.621 Type 2 diabetes mellitus with foot ulcer; L97.422 Non-pressure chronic ulcer of left heel and midfoot with fat layer exposed; Z87.891 Personal history of nicotine dependence; Z79.899 Other long term (current) drug therapy; Z79.85 Long-term (current) use of injectable non-insulin antidiabetic drugs; Z89.432 Acquired absence of left foot
CPT/HCPCS: 36415; 80053; 82800; 82948; 83605; 85025; 85610; 85652; 86140; 87040; 93971; 96365; 96366; 96367; 96368; 96372; 96375; 99285; A6213; G0378; G0463; J3370

== ENCOUNTER 2023-01-28 15:26 | Outpatient (OUT) | payer BC, SELFPAY | END 2023-01-28 15:27 | disposition home or self-care (01) | LOC: WC 15:26 | PROVIDERS: PCP Podiatrist Foot & Ankle Surgery; Visit Provider Physician Assistant | DX: E11.621 Type 2 diabetes mellitus with foot ulcer (principal); L97.422 Non-pressure chronic ulcer of left heel and midfoot with fat layer exposed | CPT/HCPCS: A6213; G0463 ==

== ENCOUNTER 2023-02-12 14:20 | Outpatient (OUT) | payer BC, SELFPAY | END 2023-02-12 14:21 | disposition home or self-care (01) | LOC: WC 14:21 | PROVIDERS: PCP Podiatrist Foot & Ankle Surgery; Visit Provider Podiatrist Foot & Ankle Surgery | DX: E11.621 Type 2 diabetes mellitus with foot ulcer (principal); L97.422 Non-pressure chronic ulcer of left heel and midfoot with fat layer exposed | CPT/HCPCS: 11042 ==

== ENCOUNTER 2023-02-25 14:55 | Outpatient (OUT) | payer BC, SELFPAY ==
--- NOTE | 2023-02-25 | XR_ITS ---
The [address] [address] Patient Name: RASHARD TAN MRN: [id number] date: 1960 Sex: M Assigned Patient Location: Current Patient Location: Accession/Order Number: [id number] Exam Date: 02/25/2023 15:28 Report Date: 02/26/2023 08:10 At the request of: TRACY COE Procedure: XR foot LT min 3V PROCEDURE: XR foot LT min 3V COMPARISON: None. HISTORY: LEFT FOOT PAIN FINDINGS: BONES:Remote amputation of the forefoot along the proximal metatarsals. Severe degenerative changes of the foot with pes planus, bony remodeling, joint space narrowing and marginal osteophyte formation. SOFT TISSUES:Diffuse soft tissue swelling. No definite subcutaneous air. Likely calcification of the Achilles tendon. EFFUSION:None visible. OTHER: Negative. XR/XR foot LT min 3V IMPRESSION: Soft tissue swelling Findings consistent with neuropathic osteoarthropathy No definite plain film of osteomyelitis Electronically authenticated by: JAMESON SALGUERO Date: 02/26/2023 08:10
== END 2023-02-25 14:56 | disposition home or self-care (01) ==
LOC: WC 14:55
PROVIDERS: PCP Podiatrist Foot & Ankle Surgery; Visit Provider Physician Assistant
DX: E11.621 Type 2 diabetes mellitus with foot ulcer (principal); L97.422 Non-pressure chronic ulcer of left heel and midfoot with fat layer exposed; E11.610 Type 2 diabetes mellitus with diabetic neuropathic arthropathy
CPT/HCPCS: 11043; 73630; A6213

== ENCOUNTER 2023-03-11 15:13 | Outpatient (OUT) | payer BC, SELFPAY | END 2023-03-11 15:14 | disposition home or self-care (01) | LOC: WC 15:13 | PROVIDERS: PCP Podiatrist Foot & Ankle Surgery; Visit Provider Physician Assistant | DX: E11.621 Type 2 diabetes mellitus with foot ulcer (principal); L97.422 Non-pressure chronic ulcer of left heel and midfoot with fat layer exposed | CPT/HCPCS: 11043 ==

== ENCOUNTER 2023-03-25 14:55 | Outpatient (OUT) | payer BC, SELFPAY | END 2023-03-25 14:56 | disposition home or self-care (01) | LOC: WC 14:55 | PROVIDERS: PCP Podiatrist Foot & Ankle Surgery; Visit Provider Physician Assistant | DX: E11.621 Type 2 diabetes mellitus with foot ulcer (principal); L97.422 Non-pressure chronic ulcer of left heel and midfoot with fat layer exposed | CPT/HCPCS: 11043 ==

== ENCOUNTER 2023-04-09 14:35 | Outpatient (OUT) | payer BC, SELFPAY ==
--- NOTE | 2023-04-09 | XR_ITS ---
The [address] [address] Patient Name: RASHARD TAN MRN: [id number] date: 1960 Sex: M Assigned Patient Location: Current Patient Location: Accession/Order Number: [id number] Exam Date: 04/09/2023 15:00 Report Date: 04/10/2023 08:06 At the request of: CHINO ELLIOTT Procedure: XR foot LT min 3V PROCEDURE: XR foot LT min 3V HISTORY: LEFT FOOT PAIN ; open wound plantar surface of left foot COMPARISON: XR foot left 02/25/2023 FINDINGS: BONES:Prior amputation of the forefoot at the level of the tarsal-metatarsal joints. Mild osteopenia. No appreciable cortical destruction or periosteal reaction. SOFT TISSUES:Soft tissue swelling surrounding the foot, greatest anteriorly. Questionable small focus of free air within mid plantar surface. EFFUSION:None visible. OTHER: Negative. XR/XR foot LT min 3V IMPRESSION: 1. Stable surgical changes post amputation of forefoot. 2. No findings to suggest osteomyelitis. 3. Marked soft tissue swelling; increased since prior study. Questionable focus of subcutaneous free air just deep to the mid plantar surface. Electronically authenticated by: PRISCA SANDERSON Date: 04/10/2023 08:06
== END 2023-04-09 14:36 | disposition home or self-care (01) ==
LOC: WC 14:35
PROVIDERS: PCP Podiatrist Foot & Ankle Surgery; Visit Provider Podiatrist Foot & Ankle Surgery
DX: E11.621 Type 2 diabetes mellitus with foot ulcer (principal); L97.422 Non-pressure chronic ulcer of left heel and midfoot with fat layer exposed; E11.610 Type 2 diabetes mellitus with diabetic neuropathic arthropathy
CPT/HCPCS: 11043; 73630

== ENCOUNTER 2023-04-15 20:18 | Outpatient (REF) | payer BC, SELFPAY ==
[2023-04-15 21:15] LABS: Anion Gap 12.6; BUN Creatinine Ratio 9.2; Calcium 9.3 mg/dL (8.5-10.1); Carbon Dioxide 25.6 mmol/L (21.0-32.0); Chloride 101 mmol/L (98-107); Estimated GFR (African America 28 (>=60); Estimated GFR (Non-African Ame 23 (>=60); Glucose 302 mg/dL (74-106); Potassium 5.2 mmol/L (3.5-5.1); Sodium 134 mmol/L (136-145)
[2023-04-15 21:17] LABS: Basophils Absolute Auto 0.1 10^3/uL (0.0-0.1); Basophils Percent Auto 0.4 % (0.2-2.0); Eosinophils Absolute Auto 0.3 10^3/uL (0.0-0.7); Hemoglobin 13.3 g/dL (14.0-18.0); Immature Granulocytes Abs Auto 0.13 10^3/uL (0.00-0.03); Immature Granulocytes Pct Auto 1.1 % (0.0-0.5); Lymphocytes Absolute Auto 2.2 10^3/uL (1.2-3.8); Lymphocytes Percent Auto 19.3 % (20.5-60.0); Mean Corpuscular HGB Conc 30.9 g/dL (29.9-35.2); Mean Corpuscular Volume 90.5 fL (80.0-94.0); Mean Platelet Volume 9.5 fL (9.5-13.5); Monocytes Percent Auto 8.5 % (1.7-12.0); Neutrophils Absolute Auto 7.8 10^3/uL (1.4-6.5); Neutrophils Percent Auto 67.7 % (43.0-75.0); Platelet Count 337 10^3/uL (150-450); Red Blood Count 4.75 10^6/uL (4.70-6.10); White Blood Count 11.5 10^3/uL (4.0-11.0)
[2023-04-15 21:24] LABS: C Reactive Protein 4.12 mg/dL (<=0.50)
[2023-04-15 21:31] LABS: Erythrocyte Sedimentation Rate >130 mm/hr (<=20)
== END 2023-04-15 20:19 | disposition home or self-care (01) ==
LOC: LAB 20:18
PROVIDERS: PCP Podiatrist Foot & Ankle Surgery; Visit Provider Podiatrist Foot & Ankle Surgery
DX: E11.621 Type 2 diabetes mellitus with foot ulcer (principal); M86.08 Acute hematogenous osteomyelitis, other sites
CPT/HCPCS: 36415; 80048; 85025; 85652; 86140

== ENCOUNTER 2023-04-16 14:26 | Outpatient (OUT) | payer BC, SELFPAY | END 2023-04-16 14:27 | disposition home or self-care (01) | LOC: WC 14:28 | PROVIDERS: PCP Podiatrist Foot & Ankle Surgery; Visit Provider Podiatrist Foot & Ankle Surgery | DX: E11.621 Type 2 diabetes mellitus with foot ulcer (principal); L97.422 Non-pressure chronic ulcer of left heel and midfoot with fat layer exposed | CPT/HCPCS: 11042 ==

== ENCOUNTER 2023-04-30 14:44 | Outpatient (OUT) | payer BC, SELFPAY | END 2023-04-30 14:45 | disposition home or self-care (01) | LOC: WC 14:45 | PROVIDERS: PCP Podiatrist Foot & Ankle Surgery; Visit Provider Podiatrist Foot & Ankle Surgery | DX: E11.621 Type 2 diabetes mellitus with foot ulcer (principal); L97.422 Non-pressure chronic ulcer of left heel and midfoot with fat layer exposed | CPT/HCPCS: 11042 ==

== ENCOUNTER 2023-05-01 12:18 | Outpatient (OUT) | payer BC, SELFPAY ==
--- OUTSIDE RECORDS SUMMARY | 2023-05-01 12:22 | XMS_ITS | CCD ---
Author Name Unknown Address [address] [place] [address] Organization [facility] Care Team Providers Care Media Specialist Name Role Phone Jose Juarez Primary Care Provider Eugene Morel Admit Provider [phone] Eugene Morel Attending Provider [phone] Gordon Ewing Attending Provider [phone] Gautam Bazan Attending Provider SAVANNAH REYNOLDS Admitting Unavailable SAVANNAH REYNOLDS Attending Unavailable JOSE JUAREZ Primary Care Unavailable JOSE JUAREZ Referring Unavailable SC Procedure Practitioner Unavailab TRISHA Ozuna Surgeon Unavailable NIMA WYNNE Surgeon Unavailable SC Procedure Practitioner Unavailab Jose Andres Primary Care Provider [phone] Eugene Morel Admit Provider [phone] Gordon Ewing Attending Provider [phone] Gautam Bazan Attending Provider Latrice Lehman Attending Provider PROVIDER, UNKNOWN Attending Unavailable PROVIDER, UNKNOWN Admitting Unavailable Kike Pollack Unavailable CHINO ELLIOTT Attending Unavailable DR JOSE JUAREZ Primary Care Unavailable CHINO ELLIOTT Admitting Unavailable DR PRISCA SANDERSON Consulting Unavailable CHINO ELLIOTT Consulting Unavailable CHINO ELLIOTT Attending Unavailable CHINO ELLIOTT Consulting Unavailable DR JOSE JUAREZ Primary Care Unavailable CHINO ELLIOTT Admitting Unavailable VIDAL CHAPIN Consulting Unavailable JUNGERMANN, SIS Consulting Unavailable MORGOS, ALIREZA Consulting Unavailable VALONE, DR GARCIA Primary Care Unavailable HIGHLANDER, CHINO Hopson Consulting Unavailable HIGHLANDER, CHINO D Attending Unavailable HIGHLANDER, PETER D Admitting Unavailable NEFCY, CHINO Consulting Unavailable VALONE, DR GARCIA Primary Care Unavailable VALONE, DR GARCIA Consulting Unavailable VALONE, DR GARCIA Admitting Unavailable VALONE, DR GARCIA Attending Unavailable VALONE, DR GARCIA Primary Care Unavailable VALONE, DR GARCIA Admitting Unavailable VALONE, DR GARCIA Attending Unavailable VALONE, DR GARCIA Consulting Unavailable HIGHLANDER, CHINO Hopson Consulting Unavailable WILHELM, NATHANAEL Consulting Unavailable FAWWAD, MOSES H Admitting Unavailable FAWWAD, MOSES H Attending Unavailable VALONE, DR GARCIA Primary Care Unavailable ZIEBER, DR PRISCA Tilley Consulting Unavailable HIGHLANDER, CHINO Hopson Consulting Unavailable AGUBOSIM, ALIREZA Consulting Unavailable FAWWAD, MOSES H Consulting Unavailable KERVIN ., VIDAL SAHNI Consulting Unavailable BURSIAN, YASMIN Consulting Unavailable HIGHLANDER, CHINO D Admitting Unavailable HIGHLANDER, CHINO D Attending Unavailable HIGHLANDER, CHINO Hopson Consulting Unavailable VALONE, DR GARCIA Primary Care Unavailable SU ., DR CARLOSE DUARDO Carmona Admitting Unavailable SU ., DR CARLOS EDUARDO Carmona Attending Unavailable VALONE, DR GARCIA Primary Care Unavailable HERNANDEZ ., MARGIE Vaughn Unavailable HIGHLANDER, CHINO Hospon Attending Unavailable VALONE, DR GARCIA Primary Care Unavailable HIGHLANDER, PETER Mark Anthony Admitting Unavailable VALONE, DR GARCIA Primary Care Unavailable HIGHLANDER, CHINO Hopson Attending Unavailable HIGHLANDER, CHINO D Admitting Unavailable HIGHLANDER, CHINO Hopson Attending Unavailable VALONE, DR GARCIA Primary Care Unavailable HIGHLANDER, CHINO Hopson Admitting Unavailable HIGHLANDER, CHINO Hopson Attending Unavailable VALONE, DR GARCIA Primary Care Unavailable HIGHLANDER, CHINO Hopson Admitting Unavailable HIGHLANDER, CHINO D Admitting Unavailable HIGHLANDER, PETER D Attending Unavailable VALONE, DR GARCIA Primary Care Unavailable HIGHLANDER, CHINO Hopson Attending Unavailable HIGHLANDER, CHINO D Admitting Unavailable VALONE, DR GARCIA Primary Care Unavailable VALONE, DR GARCIA Primary Care Unavailable HIGHLANDER, CHINO Hopson Attending Unavailable WEST, DR JAMESON Mckeon Consulting Unavailable HIGHLANDER, PETER D Admitting Unavailable HIGHLANDER, CHINO Hopson Consulting Unavailable VALONE, DR GARCIA Primary Care Unavailable HIGHLANDER, CHINO Hopson Attending Unavailable HIGHLANDER, CHINO D Admitting Unavailable VALONE, DR GARCIA Primary Care Unavailable TRACY COE Attending Unavailable TRACY COE Admitting Unavailable VALONE, DR GARCIA Primary Care Unavailable HIGHLANDER, CHINO Hopson Attending Unavailable HIGHLANDER, PETER D Admitting Unavailable VALONE, DR GARCIA Primary Care Unavailable HIGHLANDER, CHINO Hopson Admitting Unavailable HIGHLANDER, CHINO Hopson Attending Unavailable VALONE, DR GARCIA Primary Care Unavailable CAROLINTRACY Attending Unavailable CAROLIN, TRACY Admitting Unavailable VALONE, DR GARCIA Primary Care Unavailable HIGHLANDER, CHINO Hopson Admitting Unavailable HIGHLANDER, CHINO D Attending Unavailable VALONE, DR GARCIA Primary Care Unavailable HIGHLANDER, CHINO D Admitting Unavailable HIGHLANDER, CHINO D Attending Unavailable VALONE, DR GARCIA Primary Care Unavailable HIGHLANDER, CHINO D Admitting Unavailable HIGHLANDER, CHINO D Attending Unavailable VALONE, DR GARCIA Primary Care Unavailable HIGHLANDER, PETER D Admitting Unavailable HIGHLANDER, CHINO D Attending Unavailable VALONE, DR GARCIA Primary Care Unavailable HIGHLANDER, PETER D Admitting Unavailable HIGHLANDER, PETER D Attending Unavailable VALONE, DR GARCIA Primary Care Unavailable HIGHLANDER, CHINO D Attending Unavailable HIGHLANDER, PETER D Admitting Unavailable HIGHLANDER, PETER D Admitting Unavailable HIGHLANDER, CHINO D Attending Unavailable VALONE, DR GARCIA Primary Care Unavailable VALONE, DR GARCIA Primary Care Unavailable HIGHLANDER, PETER D Admitting Unavailable HIGHLANDER, PETER D Attending Unavailable HIGHLANDER, PETER D Admitting Unavailable HIGHLANDER, PETER D Attending Unavailable VALONE, DR GARCIA Primary Care Unavailable HIGHLANDER, CHINO Hopson Attending Unavailable HIGHLANDER, PETER D Admitting Unavailable VALONE, DR GARCIA Primary Care Unavailable HIGHLANDER, CHINO Hopson Attending Unavailable VALONE, DR GARCIA Primary Care Unavailable HIGHLANDER, CHINO D Admitting Unavailable HIGHLANDER, PETER D Attending Unavailable HIGHLANDER, PETER D Admitting Unavailable VALONE, DR GARCIA Primary Care Unavailable HIGHLANDER, CHINO Hopson Attending Unavailable HIGHLANDER, CHINO D Admitting Unavailable VALONE, DR GARCIA Primary Care Unavailable HIGHLANDER, CHINO Hopson Attending Unavailable HIGHLANDER, PETER D Admitting Unavailable VALONE, DR GARCIA Primary Care Unavailable HIGHLANDER, CHINO Hopson Attending Unavailable VALONE, DR GARCIA Primary Care Unavailable HIGHLANDER, CHINO Hopson Admitting Unavailable VALONE, DR GARCIA Primary Care Unavailable HIGHLANDER, CHINO Hopson Attending Unavailable ZILAVON, DR PRISCA Tilley Consulting Unavailable HIGHLANDER, CHINO Hopson Admitting Unavailable HIGHLANDER, CHINO Hopson Consulting Unavailable KERVIN ., VIDAL SAHNI Consulting Unavailable MICHAEL AGARWAL Consulting Unavailable HUNG GARCIA Consulting Unavailable SU ., DR CARLOS EDUARDO Carmona Attending Unavailable SU ., DR CARLOS EDUARDO Carmona Admitting Unavailable VALONE, DR GARCIA Primary Care Unavailable VALONE, DR GARCIA Consulting Unavailable HERNANDEZ ., MARGIE Consulting Unavailable HIGHLANDER, CHINO Hopson Consulting Unavailable EARL, CHINO Hopson Attending Unavailable VALONE, DR GARCIA Primary Care Unavailable EARL, CHINO Hopson Admitting Unavailable HIGHLANDER, CHINO Hopson Attending Unavailable VALONE, DR GARCIA Primary Care Unavailable HIGHLANDER, CHINO Hopson Admitting Unavailable WEST, DR JAMESON Mckeon Consulting Unavailable HIGHLANDER, CHINO Hopson Consulting Unavailable JOSEANDER, CHINO Hopson Admitting Unavailable JOSEANDER, CHINO Hopson Consulting Unavailable EARL, CHINO Hopson Attending Unavailable VALONE, DR GARCIA Primary Care Unavailable NATHANAEL WILHELM Consulting Unavailable SU ., DR CARLOS EDUARDO Carmona Admitting Unavailable SU ., DR CARLOS EDUARDO Carmona Attending Unavailable HERNANDEZ ., MARGIE Consulting Unavailable VALONE, DR GARCIA Primary Care Unavailable SU ., DR CARLOS EDUARDO Carmona Attending Unavailable SU ., DR CARLOS EDUARDO Carmona Admitting Unavailable HERNANDEZ ., MARGIE Consulting Unavailable VALONE, DR GARCIA Primary Care Unavailable SU ., DR CARLOS EDUARDO Carmona Admitting Unavailable SU ., DR CARLOS EDUARDO Carmona Attending Unavailable VALONE, DR GARCIA Primary Care Unavailable EARL, CHINO Hopson Attending Unavailable VALONE, DR GARCIA Primary Care Unavailable HIGHLANDER, CHINO Hopson Admitting Unavailable JUANCARLOS LEHMAN Primary Care Unavailable JOSEANDER, PETER Mark Anthony Referring Unavailable Unavailable Unavailable Unavailable Allergies Allergy Classification Reported Allergen(s) Allergy Type Date of Onset Reaction(s) Facility exenatide (1 source) exenatide Drug Allergy 07-14-19 [facility] NSAIDs (5 sources) celecoxib; Translations: [Celebrex] Drug Allergy 07-14-19 21 Difficulty Breathing [facility] Phenolphthalein (1 source) Phenolphthalein Drug Allergy 07-14-19 21 [facility] (2 sources) celecoxib; Translations: [celecoxib] Drug Allergy Difficulty Breathing, bad for kidney [facility] (1 source) Aspirin Drug Allergy bad for kidney [facility] Other (1 source) Amoxicillin Drug Allergy 07-09-19 20 [facility] (1 source) celecoxib Drug Allergy 07-09-19 20 [facility] (1 source) exenatide Drug Allergy 07-09-19 20 [facility] (1 source) Phenolphthalein Drug Allergy 07-09-19 20 [facility] Medications Current Medications Medication Drug Class(es) Dates Sig (Normalized) Sig (Original) Albuterol Sulfate (5 sources) beta2-Adrenergic Agonist Start: 12-31-2018 take 1 puff(s) by inhalation every six hours Albuterol Sulfate Active 2 PUFF Inhalation Q6H December 31, 2018 3:14pm Start: 09-30-2017 End: 11-08-2017 take 1 puff(s) by inhalation every six hours Albuterol Sulfate Discontinued 2 PUFF INHALATION Q6H September 30, 2017 6:15pm November 08, 2017 1:23pm amLODIPine 5 mg oral tablet (1 source) Dihydropyridine Calcium Channel Osman Start: 01-05-2019 take 10 mg by mouth once daily Amlodipine Active 10 MG Oral Daily January 05, 2019 2:10pm apremilast 30 mg oral tablet (4 sources) Start: 08-19-2020 take 1 tablet by mouth once daily Apremilast (Otezla) 30 mg Tablet Active 30 MG PO Daily August 19, 2020 10:59am atorvastatin 40 mg oral tablet (3 sources) HMG-CoA Reductase Inhibitor Start: 08-23-2020 take 40 mg by mouth once daily in the evening Atorvastatin Active 40 MG PO Every evening August 23, 2020 10:23am B Complex With C 20-Folic Acid (Renal Caps) 1 mg Capsule (4 sources) Start: 08-18-2020 take 1 capsule by mouth once daily B Complex With C 20-Folic Acid (Renal Caps) 1 mg Capsule Active 1 CAP PO Daily August 18, 2020 9:20pm biotin 5 mg disintegrating oral tablet (1 source) Start: 09-30-2017 take 5000 ug by mouth twice daily Biotin Active 5000 MCG Oral Twice daily September 30, 2017 6:18pm 12 hr buPROPion hydrochloride 150 mg extended release oral tablet (5 sources) Aminoketone Start: 09-30-2017 Bupropion Hcl (Wellbutrin Sr) 150 mg Tablet Extended Release 12 Hr Active 300 MG PO Daily September 30, 2017 6:19pm Start: 09-30-2017 take 150 mg by mouth once sohan y Bupropion Hcl Active 150 MG Oral Daily September 30, 2017 6:19pm colesevelam hydrochloride 625 mg oral tablet (5 sources) Bile Acid Sequestrant Start: 09-30-2017 take 3 tablets by mouth twice daily at mealtime Colesevelam (Welchol) 625 mg Tablet Active 1875 MG PO TWICE DAILY WITH MEALS September 30, 2017 6:42pm Start: 09-30-2017 take 3 tablets by mo uth three times daily at mealtime Colesevelam (Welchol) 625 mg Tablet Active 1875 MG PO THREE TIMES DAILY WITH MEALS September 30, 2017 6:42pm Start: 09-30-2017 take 1250 mg by mout h three times daily at mealtime Colesevelam Active 1250 MG Oral THREE TIMES DAILY WITH MEALS September 30, 2017 6:42pm docusate sodium 100 mg oral tablet (5 sources) Start: 12-31-2018 take 100 mg by mouth twice daily Docusate Sodium Active 100 MG Oral Twice daily December 31, 2018 3:14pm Start: 09-30-2017 End: 11-08-2017 take 1 capsule by mouth twice daily Docusate Sodium (Colace) 100 mg Capsule Discontinued 100 MG PO Twice daily September 30, 2017 6:22pm November 08, 2017 1:27pm DULoxetine 60 mg delayed release oral capsule (9 sources) Serotonin and Norepinephrine Reuptake Inhibitor Start: 08-18-2020 take 1 capsule by mouth once daily Duloxetine (Cymbalta) 60 mg Capsule,Delayed Release(Dr/Ec) Active 60 MG PO Daily August 18, 2020 9:12pm Start: 09-30-2017 End: 12-31-2018 take 30 mg by mouth at bedtime Duloxetine Discontinued 30 MG PO Bedtime September 30, 2017 6:22pm December 31, 2018 3:08pm esomeprazole 40 mg delayed release oral capsule (4 sources) Proton Pump Inhibitor Start: 08-18-2020 take 40 mg by mouth once daily Esomeprazole Magnesium Active 40 MG PO Daily August 18, 2020 9:12pm famotidine 40 mg oral tablet (6 sources) Histamine-2 Receptor Antagonist Start: 08-18-2020 take 1 tablet by mouth twice daily Famotidine (Pepcid) 40 mg Tablet Active 40 MG PO Twice daily August 18, 2020 9:12pm Start: 09-30-2017 take 20 mg by mouth twice sohan y Famotidine Active 20 MG Oral Twice daily September 30, 2017 6:23pm ferrous sulfate 325 mg oral tablet (3 sources) Start: 08-25-2020 Ferrous Sulfat e Active 325 MG PO Every 48 hours August 25, 2020 12:30pm folic acid 1 mg oral tablet (1 source) Start: 12-31-2018 take 1 mg by mouth once daily Folic Acid Active 1 MG Oral Daily December 31, 2018 3:14pm ALL DAYS EXCEPT SATURDAY furosemide 40 mg oral tablet (5 sources) Loop Diuretic Start: 08-25-2020 take 40 mg by mouth twice daily Furosemide Active 40 MG PO BID@0800,1600 60 August 25, 2020 12:28pm Start: 01-05-2019 take 40 mg by mouth once daily Furosemide Active 40 MG Oral Daily January 05, 2019 2:10pm hydrALAZINE hydrochloride 100 mg oral tablet (4 sources) Arteriolar Vasodilator Start: 08-18-2020 take 100 mg by mouth three times daily Hydralazine Active 100 MG PO Three times daily August 18, 2020 9:12pm 3 ml insulin degludec 100 unt/ml pen injector (13 sources) Insulin Analog Start: 11-08-2017 Insulin Deglud ec (Tresiba Flextouch U-100) 100 unit/mL (3 mL) insulin pen Active 200 UNIT SUBCUT Daily November 08, 2017 1:37pm Start: 11-08-2017 inject 100 [IU] by s ubcutaneous injection once daily Insulin Degludec Active 100 UNIT Subcutaneous Daily November 08, 2017 1:37pm Start: 10-04-2017 End: 11-08-2017 Insulin Degludec (Tresiba Flextouch U-100 Insulin) 100 unit/mL (3 mL) insulin pen Discontinued 70 UNIT SUBCUT Daily 3 October 04, 2017 1:09pm November 08, 2017 1:37pm Start: 09-30-2017 End: 10-04-2017 inject 200 [IU] by subcutaneous injection once daily Insulin Degludec (Tresiba Flextouch U-200) 200 unit/mL (3 mL) insulin pen Discontinued 200 UNIT SUBCUT Daily September 30, 2017 6:25pm October 04, 2017 12:34pm 3 ml insulin glargine 100 unt/ml / lixisenatide 0.033 mg/ml pen injector (10 sources) Insulin Analog Start: 12-31-2018 Insulin Glargi ne-Lixisenatide (Soliqua 100/33) 100 unit-33 mcg/mL Insulin Pen Active 60 UNITS SUBCUT Daily December 31, 2018 3:14pm Start: 09-30-2017 End: 10-04-2017 Insulin Glargine-Lixisenatid e (Soliqua 100/33) 100 unit-33 mcg/mL Insulin Pen Discontinued 70 UNIT SUBCUT Daily September 30, 2017 6:26pm October 04, 2017 1:07pm inject 60 [IU] by subcutaneous injection twice daily Soliqua 100/33 60 Units Subcutaneous TWICE A DAY Active linezolid 600 mg oral tablet (1 source) Oxazolidinone Antibacterial Start: 01-05-2019 take 600 mg by mouth twice daily Linezolid Active 600 MG Oral Twice daily 28 14 January 05, 2019 2:10pm Magnesium (1 source) Magnesium 400 MG as directed Orally Active magnesium oxide 400 mg oral tablet (4 sources) Start: 08-18-2020 take 400 mg by mouth once daily Magnesium Oxide Active 400 MG PO Daily August 18, 2020 9:12pm meclizine hydrochloride 25 mg chewable tablet (6 sources) Antiemetic Start: 09-30-2017 take 25 mg by mouth every eight hours Meclizine Active 25 MG PO Every 8 hours September 30, 2017 6:30pm Start: 09-30-2017 take 25 mg by mouth once daily Meclizine Active 25 MG Oral Daily September 30, 2017 6:30pm take 1 tablet by regan th every eight hours Meclizine HCl 25 MG 1 tablet as needed Orally three times a day Active methylPREDNISolone 4 mg oral tablet (3 sources) Corticosteroid Start: 08-23-2020 take 1 tablet by mouth once Methylprednisolone (Medrol (Sukh)) 4 mg tablets,dose pack Active 0 PO .COMPLEX August 23, 2020 10:30am orally per package directions metoprolol tartrate 25 mg oral tablet (1 source) beta-Adrenergic Osman Start: 01-05-2019 take 25 mg by mouth twice daily Metoprolol Tartrate Active 25 MG Oral Twice daily 120 60 January 05, 2019 2:10pm midodrine hydrochloride 5 mg oral tablet (1 source) alpha-Adrenergic Agonist take 1 tablet by mouth twice daily in the morning Midodrine HCl 5 MG TAKE 1 TABLET BY MOUTH TWICE DAILY IN THE MORNING AND SUPPER IF BLOOD PRESSURE IS LESS THAN 90 STANDING Oral Active montelukast 10 mg oral tablet (6 sources) Leukotriene Receptor Antagonist Start: 09-30-2017 take 10 mg by mouth at bedtime Montelukast Active 10 MG PO Bedtime September 30, 2017 6:31pm ondansetron 4 mg oral tablet (1 source) Serotonin-3 Receptor Antagonist take 1 tablet by mouth every eight hours as needed Ondansetron HCl 4 MG TAKE 1 TABLET BY MOUTH EVERY 8 HOURS NEEDED Oral for 3 Active OXcarbazepine 300 mg oral tablet (6 sources) Anti-epileptic Agent Start: 09-30-2017 take 300 mg by mouth at bedtime Oxcarbazepine Active 300 MG PO Bedtime September 30, 2017 6:32pm POLYETHYLENE GLYCOL 3350 (1 source) Osmotic Laxative Miralax 17 gram s orally at hour of sleep Active potassium chloride 10 meq extended release oral tablet (7 sources) Start: 08-25-2020 Potassium Chloride (Klor-Con 10) 10 mEq Tablet Extended Release Active 10 MEQ PO Daily August 25, 2020 12:28pm Start: 09-30-2017 End: 12-31-2018 Potassium Chloride Discontin ued 20 MEQ PO As Directed September 30, 2017 6:33pm December 31, 2018 3:13pm Renal Softgels (1 source) Renal Softgels Active sevelamer carbonate 800 mg oral tablet (8 sources) Phosphate Binder Start: 08-25-2020 take 800 mg by mouth once at mealtime Sevelamer Carbonate Active 800 MG PO 3x/Day with meals August 25, 2020 12:15pm Start: 09-30-2017 End: 08-19-2020 Sevelamer Hcl (Renagel) 800 mg Tablet Discontinued 400 MG PO Daily September 30, 2017 6:35pm August 19, 2020 11:03am Start: 09-30-2017 take 400 mg by mouth once daily Sevelamer Hcl Active 400 MG Oral Daily September 30, 2017 6:35pm tamsulosin hydrochloride 0.4 mg oral capsule (10 sources) alpha-Adrenergic Osman Start: 12-31-2018 take 1 capsule by mouth once daily Tamsulosin (Flomax) 0.4 mg Capsule Active 0.4 MG PO Daily December 31, 2018 3:14pm Start: 09-30-2017 End: 11-08-2017 take 1 capsule by mouth once daily Tamsulosin (Flomax) 0.4 mg Capsule,Extended Release 24hr Discontinued 0.4 MG PO Daily September 30, 2017 6:37pm November 08, 2017 1:33pm traZODone hydrochloride 50 mg oral tablet (6 sources) Serotonin Reuptake Inhibitor Start: 09-30-2017 take 50 mg by mouth at bedtime Trazodone Active 50 MG PO Bedtime September 30, 2017 6:43pm triamcinolone acetonide 1 mg/ml topical cream (5 sources) Corticosteroid Start: 12-31-2018 Triamcinolone Acetonide Active 1 APPLIC TOPICAL Twice daily December 31, 2018 3:14pm Completed/Discontinued Medications Medication Drug Class(es) Dates Sig (Normalized) Sig (Original) acetaminophen 325 mg / HYDROcodone bitartrate 5 mg oral tablet (9 sources) Opioid Agonist Start: 12-31-2018 End: 01-05-2019 take 1 tablet by mouth every six hours Hydrocodone-Acetami nophen Discontinued 1 TAB PO Q6H December 31, 2018 3:02pm January 05, 2019 2:16pm Start: 09-30-2017 End: 11-12-2017 take 5 mg by mouth every four hours Hydrocodone-Acetaminophen Discontinued 5 MG PO Q4H September 30, 2017 6:24pm November 12, 2017 11:43am acetaminophen 325 mg / oxyCODONE hydrochloride 5 mg oral tablet (5 sources) Opioid Agonist Start: 11-12-2017 End: 12-31-2018 take 1 tablet by mouth every six hours Oxycodone-Acetaminophen (Percocet) 5-325 mg tablet Discontinued 1 TAB PO Q6H 24 November 12, 2017 11:41am December 31, 2018 3:12pm take 1 tablet by regan th every eight hours as needed Percocet 5-325 MG 1 tablet as needed Orally EVERY 8 HRS NEEDED Active amoxicillin 500 mg / clavulanate 125 mg oral tablet (8 sources) Penicillin-class Antibacterial Start: 11-12-2017 End: 11-26-2017 take 1 tablet by mouth every eight hours Amoxicillin-Pot Clavulanate (Augmentin) 500-125 mg tablet Discontinued 1 TAB PO Q8H 42 November 12, 2017 11:34am November 26, 2017 12:01am Start: 10-04-2017 End: 11-08-2017 take 1 tablet by mouth twice daily Amoxicillin-Pot Clavulanate (Augmentin) 500-125 mg tablet Discontinued 1 TAB PO Twice daily October 04, 2017 12:35pm November 08, 2017 1:24pm B Complex With C 20-Folic Acid (4 sources) Start: 09-30-2017 End: 11-08-2017 take 1 capsule by mouth once daily B Complex With C 20-Folic Acid Discontinued 1 CAP PO Daily September 30, 2017 6:45pm November 08, 2017 1:25pm bumetanide 2 mg oral tablet (4 sources) Loop Diuretic Start: 09-30-2017 End: 12-31-2018 take 2 mg by mouth once daily Bumetanide Discontinued 2 MG PO Daily September 30, 2017 6:17pm December 31, 2018 3:05pm calcium acetate 667 mg oral capsule (5 sources) Start: 09-30-2017 End: 08-25-2020 take 667 mg by mouth three times daily at mealtime Calcium Acetate(Phosphat Bind) Discontinued 667 MG PO THREE TIMES DAILY WITH MEALS September 30, 2017 6:20pm August 25, 2020 12:34pm cholecalciferol 0.125 mg oral tablet (4 sources) Vitamin D Start: 08-18-2020 End: 08-25-2020 take 1 tablet by mouth once daily Cholecalciferol (Vitamin D3) (Vitamin D3) 125 mcg (5,000 unit) Tablet Discontinued 125 MCG PO Daily August 18, 2020 9:12pm August 25, 2020 12:34pm doxycycline hyclate 100 mg oral capsule (4 sources) Tetracycline-c lass Drug Start: 11-12-2017 End: 12-03-2017 take 100 mg by mouth twice daily Doxycycline Hyclate Discontinued 100 MG PO Twice daily 28 November 12, 2017 2:59pm December 03, 2017 12:01am gabapentin 800 mg oral tablet (8 sources) Anti-epileptic Agent Start: 08-18-2020 End: 08-25-2020 take 800 mg by mouth twice daily Gabapentin Discontinued 800 MG PO Twice daily August 18, 2020 9:12pm August 25, 2020 12:34pm Start: 09-30-2017 End: 12-31-2018 take 600 mg by mouth twice daily Gabapentin Discontinued 600 MG PO Twice daily September 30, 2017 6:23pm December 31, 2018 3:10pm 3 ml insulin lispro 100 unt/ml pen injector (13 sources) Insulin Analog Start: 11-08-2017 End: 12-31-2018 Insulin Lispro (Humalog Kwikpen Insulin) 100 unit/mL insulin pen Discontinued 50 UNIT SUBCUT THREE TIMES DAILY WITH MEALS November 08, 2017 1:37pm December 31, 2018 3:11pm Start: 10-04-2017 End: 11-08-2017 Insulin Lispro (Humalog Kwik pen Insulin) 100 unit/mL Insulin Pen Discontinued 40 UNIT SUBCUT THREE TIMES DAILY WITH MEALS 3 October 04, 2017 1:10pm November 08, 2017 1:37pm Start: 09-30-2017 End: 10-04-2017 Insulin Lispro (Humalog Kwik pen Insulin) 100 unit/mL Insulin Pen Discontinued 50 UNIT SUBCUT THREE TIMES DAILY WITH MEALS September 30, 2017 6:28pm October 04, 2017 1:11pm HumaLOG KwikPen 200 UNIT/ML as directed Subcutaneous SLIDING SCALE Active linaclotide 0.145 mg oral capsule (4 sources) Guanylate Cyclase-C Agonist Start: 09-30-2017 End: 11-08-2017 take 145 ug by mouth once daily Linaclotide Discontinued 145 MCG PO Daily September 30, 2017 6:29pm November 08, 2017 1:31pm losartan potassium 100 mg oral tablet (4 sources) Angiotensin 2 Receptor Osman Start: 12-31-2018 End: 01-05-2019 take 100 mg by mouth once daily Losartan Discontinued 100 MG PO Daily December 31, 2018 3:14pm January 05, 2019 2:16pm methotrexate 2.5 mg oral tablet (5 sources) Folate Analog Metabolic Inhibitor Start: 12-31-2018 End: 08-19-2020 take 10 mg by mouth every week Methotrexate Sodium Discontinued 10 MG PO every week December 31, 2018 3:14pm August 19, 2020 11:01am Saturday metOLazone 10 mg oral tablet (4 sources) Thiazide-like Diuretic Start: 09-30-2017 End: 12-31-2018 take 10 mg by mouth twice daily Metolazone Discontinued 10 MG PO Twice daily September 30, 2017 6:31pm December 31, 2018 3:12pm rosuvastatin calcium 40 mg oral tablet (6 sources) HMG-CoA Reductase Inhibitor Start: 08-18-2020 End: 08-25-2020 Rosuvastatin (Crestor) 40 mg Tablet Discontinued 20 MG PO Daily August 18, 2020 9:12pm August 25, 2020 12:34pm Start: 08-18-2020 take 10 mg by mouth once daily Rosuvastatin (Crestor) 40 mg Tablet Active 10 MG PO Daily August 18, 2020 9:12pm Start: 09-30-2017 take 10 mg by mouth once daily Rosuvastatin Active 10 MG Oral Daily September 30, 2017 6:35pm sodium bicarbonate 325 mg oral tablet (5 sources) Start: 11-08-2017 End: 08-25-2020 take 325 mg by mouth twice daily Sodium Bicarbonate Discontinued 325 MG PO Twice daily November 08, 2017 1:34pm August 25, 2020 12:34pm Start: 11-08-2017 take 325 mg by mouth once sohan y Sodium Bicarbonate Active 325 MG Oral Daily November 08, 2017 1:34pm sulfamethoxazole 800 mg / trimethoprim 160 mg oral tablet (8 sources) Dihydrofolate Reductase Inhibitor Antibacterial, Sulfonamide Antimicrobial Start: 12-31-2018 End: 01-05-2019 take 1 tablet by mouth twice daily Sulfamethoxazole-Trimethoprim (Bactrim Ds) 800-160 mg Tablet Discontinued 1 TAB PO Twice daily December 31, 2018 3:14pm January 05, 2019 2:16pm Start: 09-30-2017 End: 10-04-2017 take 1 tablet by mouth twice daily Sulfamethoxazole-Trimethoprim Discontinu ed 1 TAB PO Twice daily September 30, 2017 6:36pm October 04, 2017 12:33pm varenicline 1 mg oral tablet (4 sources) Partial Cholinergic Nicotinic Agonist Start: 09-30-2017 End: 01-05-2019 take 1 mg by mouth once daily Varenicline Discontinued 1 MG PO Daily September 30, 2017 6:38pm January 05, 2019 2:16pm vorapaxar 2.08 mg oral tablet (4 sources) Protease-activated Receptor-1 Antagonist Start: 09-30-2017 End: 11-08-2017 take 2.08 mg by mouth once daily Vorapaxar Discontinued 2.08 MG PO Daily September 30, 2017 6:38pm November 08, 2017 1:36pm Problems Active Problems Problem Classification Problem Date Documented Date Episodic/Chronic Bacterial infection; unspecified site (10 sources) Methicillin resistant Staphylococcus aureus infection; Translations: [Streptococcus agalactiae infection] Episodic Chronic kidney disease (20 sources) Chronic kidney disease stage 4; Translations: [Chronic kidney disease, stage 4 (severe)] Onset: 1 Resolved: 1 Chronic Chronic obstructive pulmonary disease and bronchiectasis (10 sources) Chronic obstructive lung disease; Translations: [Chronic obstructive pulmonary disease, unspecified] Onset: 3 Chronic Chronic ulcer of skin (17 sources) Non-pressure chronic ulcer of left heel and midfoot with fat layer exposed; Translations: [Non-pressure chronic ulcer of other part of left foot with unspecified severity] Onset: 2 Chronic Complications of surgical procedures or medical care (6 sources) Other complications of procedures, not elsewhere classified, initial encounter; Translations: [Other specified complications of surgical and medical care, not elsewhere classified, initial encounter] Onset: 2 Episodic Congestive heart failure; nonhypertensive (1 source) Unspecified combined systolic (congestive) and diastolic (congestive) heart failure; Translations: [UNS COMB SYSTOLIC AND DIASTOLIC CHF] Onset: 3 Chronic Crushing injury or internal injury (5 sources) Injury of kidney; Translations: [Acute kidney failure, unspecified] Episodic Deficiency and other anemia (1 source) Anemia in chronic kidney disease; Translations: [Anemia in chronic kidney disease] Chronic Deficiency and other anemia (1 source) Anemia in chronic kidney disease Onset: 1 Resolved: 1 Chronic Deficiency and other anemia (1 source) Anemia, unspecified; Translations: [ANEMIA UNSPECIFIED] Onset: 3 Episodic Diabetes mellitus with complications (20 sources) 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; Translations: [Type 2 diabetes mellitus with diabetic 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] Onset: 1 Resolved: 1 Chronic Diabetes mellitus without complication (11 sources) Type 2 diabetes mellitus; Translations: [Diabetes mellitus] Onset: 3 Chronic Diabetes mellitus without complication (2 sources) Hyperglycemia; Translations: [Hyperglycemia, unspecified] Episodic Disorders of lipid metabolism (3 sources) Hyperlipidemia; Translations: [Hyperlipidemia, unspecified] Onset: 1 Resolved: 1 Chronic Esophageal disorders (9 sources) Gastroesophageal reflux disease; Translations: [Gastro-esophageal reflux disease without esophagitis] Chronic Essential hypertension (9 sources) Hypertensive disorder; Translations: [Essential (primary) hypertension] Onset: 2 Chronic Fluid and electrolyte disorders (8 sources) Metabolic acidosis; Translations: [Acidosis] Episodic Hypertension with complications and secondary hypertension (11 sources) Chronic kidney disease due to hypertension; Translations: [Hypertensive chronic kidney disease with stage 1 through stage 4 chronic kidney disease, or unspecified chronic kidney disease] Onset: 1 Resolved: 1 Chronic Infective arthritis and osteomyelitis (except that caused by tuberculosis or sexually transmitted disease) (2 sources) Other chronic osteomyelitis, left ankle and foot; Translations: [Other acute osteomyelitis, left tibia and fibula] Onset: 2 Chronic Mood disorders (1 source) Major depressive disorder, single episode, unspecified; Translations: [KILEY DEPRESS D/O SINGLE EPIS UNS] Onset: 2 Chronic Other acquired deformities (1 source) Contracture, left ankle; Translations: [CONTRACTURE LEFT ANKLE] Onset: 3 Chronic Other aftercare (5 sources) Other moth exterminator (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) drug therapy; Translations: [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 THERAPY] Onset: 3 Episodic Other bone disease and musculoskeletal deformities (1 source) Acquired absence of left foot; Translations: [ACQUIRED ABSENCE OF LEFT FOOT] Onset: 3 Chronic Other bone disease and musculoskeletal deformities (4 sources) History of amputation of right foot; Translations: [Acquired absence of other right toe(s)] Episodic Other bone disease and musculoskeletal deformities (4 sources) Acquired absence of other right toe(s); Translations: [Other toe(s) amputation status] Episodic Other bone disease and musculoskeletal deformities (1 source) Disorder of bone, unspecified; Translations: [DISORDER OF BONE UNSPECIFIED] Onset: 3 Episodic Other connective tissue disease (5 sources) Pain in left foot; Translations: [PAIN IN LEFT FOOT] Onset: 3 Episodic Other diseases of kidney and ureters (1 source) Hyperparathyroidism due to renal insufficiency; Translations: [Secondary hyperparathyroidism of renal origin] Chronic Other diseases of kidney and ureters (1 source) Secondary hyperparathyroidism of renal origin Onset: 1 Resolved: 1 Chronic Other hereditary and degenerative nervous system conditions (1 source) Other idiopathic peripheral autonomic neuropathy; Translations: [OTH IDIO PERIPH AUTONOM NEUROPATHY] Onset: 3 Chronic Other inflammatory condition of skin (5 sources) Psoriasis; Translations: [Psoriasis, unspecified] Chronic Other inflammatory condition of skin (5 sources) Psoriasis, unspecified; Translations: [Other psoriasis] Onset: 3 Chronic Other inflammatory condition of skin (1 source) Other psoriasis; Translations: [OTHER PSORIASIS] Onset: 3 Chronic Other liver diseases (1 source) Liver disease, unspecified; Translations: [LIVER DISEASE UNSPECIFIED] Onset: 3 Chronic Other lower respiratory disease (3 sources) History of pleural effusion; Translations: [Personal history of other diseases of the respiratory system] Episodic Other lower respiratory disease (3 sources) Pleuritic pain; Translations: [Pleurodynia] Episodic Other lower respiratory disease (3 sources) Personal history of other diseases of the respiratory system; Translations: [Personal history of other diseases of respiratory system] Episodic Other lower respiratory disease (3 sources) Pleurodynia; Translations: [Painful respiration] Episodic Other nutritional; endocrine; and metabolic disorders (5 sources) Morbid obesity; Translations: [Morbid (severe) obesity due to excess calories] Chronic Other nutritional; endocrine; and metabolic disorders (5 sources) Morbid (severe) obesity due to excess calories; Translations: [Morbid obesity] Onset: 2 Chronic Kristin-; endo-; and myocarditis; cardiomyopathy (except that caused by tuberculosis or sexually transmitted disease) (6 sources) Pericarditis; Translations: [Disease of pericardium, unspecified] Episodic Peripheral and visceral atherosclerosis (10 sources) Peripheral vascular disease; Translations: [Peripheral vascular disease, unspecified] Onset: 3 Chronic Pleurisy; pneumothorax; pulmonary collapse (12 sources) Thickening of pleura; Translations: [Fibrothorax] Episodic Pneumonia (except that caused by tuberculosis or sexually transmitted disease) (2 sources) Pneumonia; Translations: [Pneumonia, unspecified organism] Episodic Spondylosis; intervertebral disc disorders; other back problems (6 sources) Spondylosis without myelopathy or radiculopathy, lumbar region; Translations: [Other intervertebral disc degeneration, lumbar region] Onset: 2 Chronic Substance-related disorders (1 source) Smoker; Translations: [Nicotine dependence, unspecified, uncomplicated] Chronic Unclassified (1 source) History of amputation of right foot; Translations: [History of partial amputation of toe of right foot] Unclassified (1 source) CHRN KIDNEY DISEASE STG 3 UNSP; Translations: [CHRN KIDNEY DISEASE STG 3 UNSP] Onset: 3 Unclassified (1 source) CONTACT W/AND (SUSP) EXPOS COVID-19; Translations: [CONTACT W/AND (SUSP) EXPOS COVID-19] Onset: 2 Past or Other Problems Problem Classification Problem Date Documented Date Episodic/Chronic Acquired foot deformities (2 sources) Other acquired deformities of left foot; Translations: [Valgus deformity, not elsewhere classified, left ankle] Onset: 01-05-2022 Episodic Acute and unspecified renal failure (4 sources) Acute kidney failure, unspecified; Translations: [Acute kidney failure, unspecified] Onset: 01-05-2022 Episodic Deficiency and other anemia (1 source) Iron deficiency anemia, unspecified; Translations: [IRON DEFICIENCY ANEMIA UNSPECIFIED] Onset: 06-27-2022 Episodic Other aftercare (1 source) 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; Translations: [SENIOR FINANCIAL REPORTING ACCOUNTANT CURRENT USE OF INSULIN] Onset: 01-25-2022 Episodic Other connective tissue disease (1 source) Other muscle spasm; Translations: [OTHER MUSCLE SPASM] Onset: 03-08-2022 Episodic Other diseases of veins and lymphatics (1 source) Venous insufficiency (chronic) (peripheral); Translations: [VENOUS INSUFF CHRONIC PERIPHERAL] Onset: 05-15-2022 Episodic Other injuries and conditions due to external causes (1 source) Other injury of unspecified body region, sequela; Translations: [OTHER INJURY UNS BODY REGION SEQ] Onset: 03-27-2022 Episodic Other lower respiratory disease (4 sources) Shortness of breath; Translations: [SHORTNESS OF BREATH] Onset: 06-06-2022 Episodic Other skin disorders (1 source) Nail dystrophy; Translations: [NAIL DYSTROPHY] Onset: 06-27-2022 Episodic Residual codes; unclassified (1 source) Localized edema; Translations: [LOCALIZED EDEMA] Onset: 06-05-2022 Episodic Residual codes; unclassified (1 source) Acquired absence of other specified parts of digestive tract; Translations: [ACQ ABSENCE OTH PART DIGESTV TRACT] Onset: 01-25-2022 Episodic Screening and history of mental health and substance abuse codes (1 source) Personal history of nicotine dependence; Translations: [PERSONAL HISTORY OF NICOTINE DEPEND] Onset: 01-05-2022 Episodic Skin and subcutaneous tissue infections (7 sources) Abscess of face; Translations: [Abscess of neck] Onset: 06-27-2022 Episodic Spondylosis; intervertebral disc disorders; other back problems (4 sources) Muscle spasm of back; Translations: [MUSCLE SPASM OF BACK] Onset: 11-30-2021 Episodic Results Test Name Value Interpretation Reference Range Facility Basic Metabolic Profon 02-27 Anion gap [Moles/Vol] 11 mmol/L Normal - [facility] Comment on above: Performed By: #### S ED, CRP, BMP, CDP #### [facility] [address] [place] [address] Salvage Laborer: Jameson Aaron MD BUN/CRE Ratio 16 Normal - [facility] Comment on above: Performed By: #### S ED, CRP, BMP, CDP #### [facility] [address] [place], [place] [id number] Salvage Laborer: Jameson Aaron MD Calcium [Mass/Vol] 9.4 mg/dL Normal 8.6-10.4 [facility] Comment on above: Performed By: #### S ED, CRP, BMP, CDP #### [address] [place], [place] [id number] Salvage Laborer: Jameson Aaron MD Chloride [Moles/Vol] 98 mmol/L Normal 98-107 [facility] Comment on above: Performed By: #### S ED, CRP, BMP, CDP #### [facility] [address] [place], [place] [id number] Salvage Laborer: Jameson Aaron MD CO2 [Moles/Vol] 18 mmol/L Low - [facility] Comment on above: Performed By: #### S ED, CRP, BMP, CDP #### [facility] [address] [place] [address] Salvage Laborer: Jameson Aaron MD Creatinine [Mass/Vol] 2.7 mg/dL High 0.7-1.2 [facility] Comment on above: Performed By: #### S EDLACIE BMP, CDP #### [facility] [address] [place] [address] Salvage Laborer: Jameson Aaron MD GFR/1.73 sq M.predicted among non-blacks MDRD (S/P/Bld) [Vol rate/Area] 26 mL/min/{1.73_m2} Low >60 [facility] Comment on above: Result Comment: These results are not intended for use in patients <18 years of age. eGFR results are calculated without a race factor using the 2020 CKD-EPI equation. Careful clinical correlation is recommended, particularly when comparing to results calculated using previous equations. The CKD-EPI equation is less accurate in patients with extremes of muscle mass, extra-renal metabolism of creatine, excessive creatine ingestion, or following therapy that affects renal tubular secretion. Performed By: #### S LACIE MANRIQUE BMP, CDP #### [facility] [address] [place] [address] Salvage Laborer: Jameson Aaron MD Glucose [Mass/Vol] 268 mg/dL High 70-99 [facility] Comment on above: Performed By: #### S LACIE MANRIQUE BMP, CDP #### [facility] [address] [place], [place] [id number] Salvage Laborer: Jameson Aaron MD Potassium [Moles/Vol] 5.2 mmol/L Normal 3.7-5.3 [facility] Comment on above: Performed By: #### S LACIE MANRIQUE BMP, CDP #### [facility] [address] [place] [address] Salvage Laborer: Jameson Aaron MD Sodium [Moles/Vol] 127 mmol/L Low 135-144 [facility] Comment on above: Performed By: #### S LACIE MANRIQUE, BMP, CDP #### [facility] [address] [place] [address] Salvage Laborer: Jameson Aaron MD Urea nitrogen [Mass/Vol] 44 mg/dL High 8-23 [facility] Comment on above: Performed By: #### S ED, CRP, BMP, CDP #### [facility] [address] [place], [place] [id number] Salvage Laborer: Jameson Aaron MD C-Reactive Proteinon 023 CRP [Mass/Vol] 131.1 mg/L High 0.0-5.0 [facility] Comment on above: Performed By: #### S ED, CRP, BMP, CDP #### [facility] [address] [place], [place] [id number] Salvage Laborer: Jameson Aaron MD CBC with Diffon 02-27-2023 Abs. Basophil 0.06 k/uL Normal 0.00-0.20 [facility] Comment on above: Performed By: #### S ED, CRP, BMP, CDP #### [facility] [address] [place] [address] [place] [address] Salvage Laborer: Jameson Aaron MD Abs.Imm.Granulocyte 0.11 k/uL Normal 0.00-0.30 [facility] Comment on above: Performed By: #### S ED, CRP, BMP, CDP #### [address] [place] [address] Salvage Laborer: Jameson Aaron MD Abs.Neutrophil (Seg) 6.83 k/uL Normal 1.50-8.10 [facility] Comment on above: Performed By: #### S ED, CRP, BMP, CDP #### [facility] [address] [place] [address] Salvage Laborer: Jameson Aaron MD Basophils/100 WBC (Bld) 1 % Normal 0-2 [facility] Comment on above: Performed By: #### S ED, CRP, BMP, CDP #### [facility] [address] [place] [address] [place] [address] Salvage Laborer: Jameson Aaron MD Eosinophils (Bld) [#/Vol] 0.22 10*3/uL Normal 0.00-0.44 [facility] Comment on above: Performed By: #### S ED, CRP, BMP, CDP #### [facility] [address] [place] [address] Dr[place], [place] [id number] Salvage Laborer: Jameson Aaron MD Eosinophils/100 WBC (Bld) 2 % Normal 1-4 [facility] Comment on above: Performed By: #### S ED, CRP, BMP, CDP #### [address] [place] [id number] Salvage Laborer: Jameson Aaron MD Erythrocyte distribution width (RBC) [Ratio] 14.6 % High 11.8-14.4 [facility] Comment on above: Performed By: #### S ED, CRP, BMP, CDP #### [address] [place], [facility] Salvage Laborer: Jameson Aaron MD Hematocrit (Bld) [Volume fraction] 41.9 % Normal 40.7-50.3 [facility] Comment on above: Performed By: #### S ED, CRP, BMP, CDP #### [address] [place] [id number] Salvage Laborer: Jameson Aaron MD Hemoglobin (Bld) [Mass/Vol] 13.2 g/dL Normal 13.0-17.0 [facility] Comment on above: Performed By: #### S ED, CRP, BMP, CDP #### [address] [place] [address] Salvage Laborer: Jameson Aaron MD Immature granulocytes/100 WBC (Bld) 1 % High 0 [facility] Comment on above: Performed By: #### S ED, CRP, BMP, CDP #### [address] [place], [facility]83 Salvage Laborer: Jameson Aaron MD Lymphocytes (Bld) [#/Vol] 1.83 10*3/uL Normal 1.10-3.70 [facility] Comment on above: Performed By: #### S ED, CRP, BMP, CDP #### [facility] [address] [place], [place] [id number] Salvage Laborer: Jameson Aaron MD Lymphocytes/100 WBC (Bld) 18 % Low 24-43 [facility] Comment on above: Performed By: #### S ED, CRP, BMP, CDP #### [facility] [address] [place], [place] [id number] Salvage Laborer: Jameson Aaron MD MCH (RBC) [Entitic mass] 28.2 pg Normal 25.2-33.5 [facility] Comment on above: Performed By: #### S ED, CRP, BMP, CDP #### [address] [place], [place] [address] Salvage Laborer: Jameson Aaron MD MCHC (RBC) [Mass/Vol] 31.5 g/dL Normal 28.4-34.8 [facility] Comment on above: Performed By: #### S ED, CRP, BMP, CDP #### [address] [place], [place] [id number] Salvage Laborer: Jameson Aaron MD MCV (RBC) [Entitic vol] 89.5 fL Normal 82.6-102.9 [facility] Comment on above: Performed By: #### S ED, CRP, BMP, CDP #### [address] [place], [place] [id number] Salvage Laborer: Jameson Aaron MD Monocytes (Bld) [#/Vol] 1.42 10*3/uL High 0.10-1.20 [facility] Comment on above: Performed By: #### S ED, CRP, BMP, CDP #### [address] [place], [place] [address]483 Salvage Laborer: Jameson Aaron MD Monocytes/100 WBC (Bld) 14 % High 3-12 [facility] Comment on above: Performed By: #### S ED, CRP, BMP, CDP #### [facility] [address] [place], [place] [address] Salvage Laborer: Jameson Aaron MD Neutrophil (Seg) 64 % Normal 36-65 [facility] Comment on above: Performed By: #### S ED, CRP, BMP, CDP #### [facility] [address] [place], [place] [address] Salvage Laborer: Jameson Aaron MD NRBC Automated 0.0 per 100 WBC Normal 0.0 [facility] Comment on above: Performed By: #### S ED, CRP, BMP, CDP #### [address] [place], [place] [id number] Salvage Laborer: Jameson Aaron MD Platelet mean volume (Bld) [Entitic vol] 9.4 fL Normal 8.1-13.5 [facility] Comment on above: Performed By: #### S ED, CRP, BMP, CDP #### [address] [place], [place] [id number] Salvage Laborer: Jameson Aaron MD Platelets (Bld) [#/Vol] 266 10*3/uL Normal 138-453 [facility] Comment on above: Performed By: #### S ED, CRP, BMP, CDP #### [facility] [address] [place], [place] [id number] Salvage Laborer: Jameson Aaron MD RBC (Bld) [#/Vol] 4.68 10*6/uL Normal 4.21-5.77 [facility] Comment on above: Performed By: #### S ED, CRP, BMP, CDP #### [address] [place], [place] [address]58[address] Salvage Laborer: Jameson Aaron MD WBC (Bld) [#/Vol] 10.5 10*3/uL Normal 3.5-11.3 [facility] Comment on above: Performed By: #### S ED, CRP, BMP, CDP #### [facility] [address] [place], [place] [id number] Salvage Laborer: Jameson Aaron MD Sedimentation Rateon 023 Sedimentation Rate 114 mm/Hr High 0-20 [facility] Comment on above: Performed By: #### S ED, CRP, BMP, CDP #### [facility] [address] [place] [address] Salvage Laborer: Jameson Aaron MD FUNGAL CULTUREon 09-21-2022 Fungus (Mycology) Culture Final report Abnormal [facility] Comment on above: Performed By: #### C XFUN ####[facility] [id number] [place] [address]Dr. Eddie Lerner Fungus Stain Final report Normal [facility] Comment on above: Performed By: #### C XFUN ####[facility] [id number] [place] [address]Dr. Eddie Lerner Result 1 Comment Normal [facility] Comment on above: Result Comment: ANNEMARIE/ Calcofluor preparation: no fungus observed. Performed By: #### C XFUN ####[facility] [id number] [place] [address]Dr. Eddie Lernre Result 1 Rosy albicans Abnormal [facility] Comment on above: Performed By: #### C XFUN ####[facility] [id number] [place] [address]Dr. Eddie Lerner CULTURE OTHERon 08-23-2022 CULTURE OTHER Isolate 1 Enterococcus faecalis Light growth of ORGANISM 1 Enterococcus faecalis ANTIBIOTIC M.I.C RX STATUS Beta-Lactamase Neg NEG F Benzylpenicillin 0.5 S F Ampicillin <=2 S F Gentamicin High Level (synergy) SYN-R R F Streptomycin High Level (synergy) SYN-S S F Quinupristin/Dalfopristin 4 R F Linezolid 1 S F Vancomycin 1 S F Normal [facility] Comment on above: Performed By: #### O THCX ####[facility] [id number] [place] [address]Dr. Eddie Lerner ACID FAST SMEAR AND CXon Acid Fast Smear Negative Normal [facility] Comment on above: Performed By: #### A FB ####[facility] [address] [place] [address]DrVaishali [employer] Specimen Processing Tissue Grinding Normal [facility] Comment on above: Performed By: #### A FB ####[facility] [address] [place] [address]DrVaishali Lerner BNPon 08-20-2022 Natriuretic peptide B (Bld) [Mass/Vol] 648.0 pg/mL Normal <=900.0 [facility] Comment on above: Performed By: #### A 1C #### [facility] [address] [place] [address] Dr. Eddie Lerner CULTURE ANAEROBICon 08-21-19 23 CULTURE ANAEROBIC Culture Observations : NO GROWTH OF ANAEROBES AT 72 HOURS. Normal [facility] Comment on above: Performed By: #### A NACX ####[facility] [address] [place], [place] [address]Dr. Eddie Lerner GLYCOHEMOGLOBIN A1Con 2022 ADA RECOMMENDATION SEE BELOW Normal [facility] Comment on above: Result Comment: ADA RECOMMENDED LIMIT 4.0 - 6.0 ADA THERAPEUTIC TARGET < 7.0 ACTION SUGGESTED > 7.0 Performed By: #### R ENAL, LIPID, LIVER, TSH #### [facility] [address] [place] [address] Dr. Eddie Lerner Glucose [Mass/Vol] 235 mg/dL Normal [facility] Comment on above: Performed By: #### R ENAL, LIPID, LIVER, TSH #### [facility] [address] [address] [address] Eddie Lerner HbA1c (Bld) [Mass fraction] 9.8 % Critically high 4.5-6.2 [facility] Comment on above: Performed By: #### R ENAL, LIPID, LIVER, TSH #### [facility] [address] [place], [place] [address] Dr. Eddie PRINGLE STAINon 08-20-2022 COMMENTS NO ORGANISMS OBSERVED Normal [facility] Comment on above: Performed By: #### G STAIN ####[facility] [address] [id number]. Eddie Lerner DIPHTHEROIDS Normal [facility] Comment on above: Performed By: #### G STAIN ####[facility] [address] [address]Dr. Eddie Lerner EPITHELIALS Normal [facility] Comment on above: Performed By: #### G STAIN ####[facility] [address] [address]Dr. Eddie Lerner FUNGAL ELEMENTS Normal [facility] Comment on above: Performed By: #### G STAIN ####[facility] [address] [address]Dr. Eddie Lerner GRAM NEG BACILLI Normal [facility] Comment on above: Performed By: #### G STAIN ####[facility] [address] [address]Dr. Eddie Lerner GRAM NEG DIPPLOCOCCI Normal [facility] Comment on above: Performed By: #### G STAIN ####[facility] [address] [address]Dr. Eddie Lerner GRAM POS BACILLI Normal [facility] Comment on above: Performed By: #### G STAIN ####[facility] [address] [address]Dr. Eddie Lerner GRAM POSITIVE COCCI Normal [facility] Comment on above: Performed By: #### G STAIN ####[facility] [address] [address]Dr. Eddie Lerner GRAM STAIN SOURCE Lt Foot Bone Normal [facility] Comment on above: Performed By: #### G STAIN ####[facility] [address] [address]Dr. Eddie Lerner GS_DIPTH Normal [facility] Comment on above: Performed By: #### G STAIN ####[facility] [address] [place], [place] [address]Dr. Eddie Lerner WBC RARE Normal [facility] [place] Comment on above: Performed By: #### G STAIN ####[facility] [address] [place], [place] [address]Dr. Eddie Lerner LIPID PROFILEon 08-20-2022 CHOL-HDL RATIO NORM SEE BELOW Normal [facility] [place] Comment on above: Result Comment: 3.3 - 4.4 LOW RISK 4.4 - 7.1 AVERAGE RISK 7.1 - 11.0 MODERATE RISK >11.0 HIGH RISK Performed By: #### A 1C #### [facility] [address] [address] [address] Eddie Lerner Cholesterol [Mass/Vol] 137 mg/dL Normal <=200 [facility] [place] Comment on above: Performed By: #### A 1C #### [facility] [address] [address] [address] Eddie Lerner Cholesterol in HDL [Mass/Vol] 54 mg/dL Normal 40-60 [facility] [place] Comment on above: Performed By: #### A 1C #### [facility] [address] [address] [address] Eddie Lerner Cholesterol in LDL [Mass/Vol] 63.2 mg/dL Normal [facility] [place] Comment on above: Performed By: #### A 1C #### [facility] [address] [address] [address] Eddie Lerner Cholesterol.total/C holesterol in HDL [Mass ratio] 2.5 {ratio} Normal [facility] [place] Comment on above: Performed By: #### A 1C #### [facility] [address] [address] [address] Eddie Lerner HDL NORMAL > or = 60 mg/dl - LO W CARDIOVASCULAR RISK <40 mg/dl - HIGH CARDIOVASCULAR RISK Normal [facility] [place] Comment on above: Performed By: #### A 1C #### [facility] [address] [address] [address] Eddie Lerner LDL CALC NORMAL SEE BELOW Normal [facility] Comment on above: Result Comment: <100 mg/dl OPTIMAL 100 - 129 mg/dl NEAR OR ABOVE OPTIMAL 130 - 159 mg/dl BORDERLINE HIGH 160 - 189 mg/dl HIGH >190 mg/dl VERY HIGH Performed By: #### A 1C #### [facility] [address] [place] [address] Dr. Eddie Lerner Triglyceride [Mass/Vol] 99 mg/dL Normal <=150 [facility] [place] Comment on above: Performed By: #### A 1C #### [facility] [address] [place] [address] Dr. Eddie Lerner VLDL CALC 19.8 mg/dL Normal [facility] [place] Comment on above: Performed By: #### A 1C #### [facility] [address] [place] [address] Dr. Eddie Lerner LIVER PROFILEon 08-20-2022 Albumin [Mass/Vol] 2.8 g/dL Critically low 3.4-5.0 Th e [facility] Comment on above: Performed By: #### A 1C #### [facility] [address] [place] [address] Dr. Eddie Lerner Albumin/Globulin [Mass ratio] 0.6 {ratio} Normal [facility] [place] Comment on above: Performed By: #### A 1C #### [facility] [address] [place] [address] Dr. Eddie Lerner ALP [Catalytic activity/Vol] 87 U/L Normal 46-116 [facility] [place] Comment on above: Performed By: #### A 1C #### [facility] [address] [place] [address] Dr. Eddie Lerner ALT [Catalytic activity/Vol] 49 U/L Normal 16-63 [facility] [place] Comment on above: Performed By: #### A 1C #### [facility] [address] [place] [address] Dr. Eddie Lerner AST [Catalytic activity/Vol] 36 U/L Normal 15-37 [facility] [place] Comment on above: Performed By: #### A 1C #### [facility] [address] [place] [address] Dr. Eddie Lerner BILI, CONJUGATED 0.1 mg/dL Normal 0.0-0.2 [facility] [place] Comment on above: Performed By: #### A 1C #### [facility] [address] [address] [address] Eddie Lerner Bilirubin [Mass/Vol] 0.4 mg/dL Normal 0.2-1.0 [facility] [place] Comment on above: Performed By: #### A 1C #### [facility] [address] [address] [address] Eddie Lerner Globulin (S) [Mass/Vol] 4.4 g/dL Normal [facility] [place] Comment on above: Performed By: #### A 1C #### [facility] [address] [address] [address] Eddie Lerner Protein [Mass/Vol] 7.2 g/dL Normal 6.4-8.2 [facility] [place] Comment on above: Performed By: #### A 1C #### [facility] [address] [place] [address] Dr. Eddie Lerner POINT OF CARE GLUCOSEon 07-29 Glucose [Mass/Vol] 107 mg/dL Critically high 74-106 [facility] Comment on above: Performed By: #### P OCGLUC #### [facility] [address] [address] [address] Eddie Lerner Glucose [Mass/Vol] 108 mg/dL Critically high -106 [facility] Comment on above: Performed By: #### P OCGLUC ####[facility] [address] [address]Dr. Eddie Lerner TSHon 08-20-2022 TSH 2.247 uIU/mL Normal 0.358-3.740 [facility] [place] Comment on above: Performed By: #### A 1C #### [facility] [address] [address] [address] Eddie Lerner CBC AUTO DIFFon 08-15-2022 BASO # 0.0 103/ul Normal 0.0-0.1 [facility] [place] Comment on above: Performed By: #### C BC ####[facility] [address] [address]Dr. Eddie Lerner Basophils/100 WBC (Bld) 0.4 % Normal 0.2-2.0 [facility] Comment on above: Performed By: #### C BC ####[facility] [address] [place], [place] [address]DrVaishali Lerner EO # 0.2 103/ul Normal 0.0-0.7 [facility] Comment on above: Performed By: #### C BC ####[facility] [address] [place], [place] [address]DrVaishali Lerner Eosinophils/100 WBC (Bld) 2.0 % Normal 0.9-7.0 [facility] Comment on above: Performed By: #### C BC ####[facility] [address] [place], [place] [address]DrVaishali Lerner Erythrocyte distribution width (RBC) [Ratio] 14.5 % Normal 11.0-15.0 [facility] Comment on above: Performed By: #### C BC ####[facility] [address] [place], [place] [address]DrVaishali Lerner Hematocrit (Bld) [Volume fraction] 40.5 % Critically low 42.0-54.0 [facility] Comment on above: Performed By: #### C BC ####[facility] [address] [place], [place] [address]DrVaishali Lerner Hemoglobin (Bld) [Mass/Vol] 13.1 g/dL Critically low 14.0-18.0 [facility] Comment on above: Performed By: #### C BC ####[facility] [address] [place], [place] [address]DrVaishali Lerner IG # 0.12 10e3/ul Critically high 0.00-0.03 [facility] Comment on above: Performed By: #### C BC ####[facility] [address] [place], [place] [address]DrVaishali Lerner IG % 1.2 % Critically high 0.0-0.5 [facility] Comment on above: Performed By: #### C BC ####[facility] [address] [place], [place] [address]DrVaishali Lerner LYMPH # 1.4 103/ul Normal 1.2-3.8 [facility] Comment on above: Performed By: #### C BC ####[facility] [address] [address]Dr. Eddie Lerner Lymphocytes/100 WBC (Bld) 13.6 % Critically low 20.5-60.0 [facility] [place] Comment on above: Performed By: #### C BC ####[facility] [address] [place], [place] [address]Dr. Eddie Lerner MANUAL DIFF REQ NO Normal [facility] [place] Comment on above: Performed By: #### C BC ####[facility] [address] [place], [place] [address]Dr. Eddie Lerner MCH (RBC) [Entitic mass] 29.8 pg Normal 25.9-34.0 [facility] Comment on above: Performed By: #### C BC ####[facility] [address] [place], [place] [address]Dr. Eddie Lerner MCHC (RBC) [Mass/Vol] 32.3 g/dL Normal 29.9-35.2 [facility] Comment on above: Performed By: #### C BC ####[facility] [address] [place], [place] [address]Dr. Eddie Lerner MCV (RBC) [Entitic vol] 92.0 fL Normal 80.0-94.0 [facility] Comment on above: Performed By: #### C BC ####[facility] [address] [place], [place] [address]Dr. Eddie Lerner MONO # 0.5 103/ul Normal 0.3-0.8 [facility] Comment on above: Performed By: #### C BC ####[facility] [address] [place], [place] [address]Dr. Eddie Lerner Monocytes/100 WBC (Bld) 4.8 % Normal 1.7-12.0 [facility] Comment on above: Performed By: #### C BC ####[facility] [address] [place], [place] [address]Dr. Eddie Lerner NEUT # 8.1 103/ul Critically high 1.4-6.5 [facility] Comment on above: Performed By: #### C BC ####[facility] [address] [address]Dr. Eddie Lerner Neutrophils/100 WBC (Bld) 78.0 % Critically high 43.0-75.0 [facility] Comment on above: Performed By: #### C BC ####[facility] [address] [address]DrVaishali Lerner Platelet mean volume (Bld) [Entitic vol] 8.6 fL Critically low 9.5-13.5 [facility] Comment on above: Performed By: #### C BC ####[facility] [address] [address]DrVaishali Lerner PLT 240 103/ul Normal 150-450 [facility] Comment on above: Performed By: #### C BC ####[facility] [address] [address]DrVaishali Lerner RBC 4.40 106/ul Critically low 4.70-6.10 [facility] Comment on above: Performed By: #### C BC ####[facility] [address] [address]DrVaishali Lerner WBC 10.3 103/ul Normal 4.0-11.0 [facility] Comment on above: Performed By: #### C BC ####[facility] [address] [address]Dr. Eddie Lerner CRPon 08-15-2022 CRP [Mass/Vol] mg/L Normal <=1.0 [facility] Comment on above: Performed By: #### A 1C #### [facility] [address] [address] [address] Eddie Lerner PROF CHEM 8 (BAS METB)on Anion gap [Moles/Vol] 14.4 mmol/L Normal [facility] Comment on above: Performed By: #### A 1C #### [facility] [address] [place] [address] Dr. Eddie Lerner Calcium [Mass/Vol] 9.2 mg/dL Normal 8.5-10.1 [facility] [place] Comment on above: Performed By: #### A 1C #### [facility] [address] [place] [address] Dr. Eddie Lerner Chloride [Moles/Vol] 101 mmol/L Normal 98-107 [facility] [place] Comment on above: Performed By: #### A 1C #### [facility] [address] [address] [address] Eddie Lerner CO2 [Moles/Vol] 25.2 mmol/L Normal 21.0-32.0 [facility] [place] Comment on above: Performed By: #### A 1C #### [facility] [address] [place] [address] Dr. Eddie Lerner Creatinine [Mass/Vol] 3.07 mg/dL Critically high 0.70-1.30 [facility] [place] Comment on above: Performed By: #### A 1C #### [facility] [address] [place] [address] Dr. Eddie Lerner EGFR-AF COLOMBIAN 25 mL/min/1.73m2 Critically low >=60 [facility] [place] Comment on above: Performed By: #### A 1C #### [facility] [address] [place] [address] Dr. Eddie Lerner EGFR-NON AF COLOMBIAN 21 mL/min/1.73m2 Critically low >=60 [facility] [place] Comment on above: Performed By: #### A 1C #### [facility] [address] [address] [address] Eddie Lerner Glucose [Mass/Vol] 415 mg/dL Critically high 74-106 [facility] Comment on above: Performed By: #### A 1C #### [facility] [address] [place] [address] Dr. Eddie Lerner Potassium [Moles/Vol] 5.6 mmol/L Critically high 3.5-5.1 [facility] [place] Comment on above: Performed By: #### A 1C #### [facility] [address] [place] [address] Dr. Eddie Lerner Sodium [Moles/Vol] 135 mmol/L Critically low 136-145 [facility] Comment on above: Performed By: #### A 1C #### [facility] [address] [place] [address] Dr. Eddie Lerner Urea nitrogen [Mass/Vol] 34.0 mg/dL Critically high 7.0-18.0 [facility] [place] Comment on above: Performed By: #### A 1C #### [facility] [address] [place] [address] Dr. Eddie Lerner Urea nitrogen/Creatinine [Mass ratio] 11.1 mg/mg Normal [facility] [place] Comment on above: Performed By: #### A 1C #### [facility] [address] [place] [address] Dr. Eddie Lerner SED RATE WESTERGREN 2022 SED RATE 59 mm/hr Critically high <=20 [facility] [place] Comment on above: Performed By: #### S EDR ####[facility] [address] [place], [place] [address]Dr. Eddie Lerner BNPon 06-06-2022 Natriuretic peptide B (Bld) [Mass/Vol] 1342.0 pg/mL Critically high <=900.0 [facility] [place] Comment on above: Performed By: #### B FIBERGLASS FINISHER ####[facility] [address] [place], [place] [address]Dr. Eddie Lerner CBC AUTO DIFFon 06-06-2022 BASO # 0.1 103/ul Normal 0.0-0.1 [facility] [place] Comment on above: Performed By: #### A 1C #### [facility] [address] [place] [address] Dr. Eddie Lerner Basophils/100 WBC (Bld) 0.6 % Normal 0.2-2.0 [facility] Comment on above: Performed By: #### A 1C #### [facility] [address] [place] [address] Dr. Eddie Lerner EO # 0.2 103/ul Normal 0.0-0.7 [facility] [place] Comment on above: Performed By: #### A 1C #### [facility] [address] [place] [address] Dr. Eddie Lerner Eosinophils/100 WBC (Bld) 1.8 % Normal 0.9-7.0 [facility] [place] Comment on above: Performed By: #### A 1C #### [facility] [address] [place] [address] Dr. Eddie Lerner Erythrocyte distribution width (RBC) [Ratio] 15.2 % Critically high 11.0-15.0 [facility] [place] Comment on above: Performed By: #### A 1C #### [facility] [address] [place] [address] Dr. Eddie Lerner Hematocrit (Bld) [Volume fraction] 39.0 % Critically low 42.0-54.0 [facility] [place] Comment on above: Performed By: #### A 1C #### [facility] [address] [place] [address] Dr. Eddie Lerner Hemoglobin (Bld) [Mass/Vol] 12.4 g/dL Critically low 14.0-18.0 [facility] [place] Comment on above: Performed By: #### A 1C #### [facility] [address] [place] [address] Dr. Eddie Lerner IG # 0.21 10e3/ul Critically high 0.00-0.03 [facility] [place] Comment on above: Performed By: #### A 1C #### [facility] [address] [place] [address] Dr. Eddie Lerner IG % 1.6 % Critically high 0.0-0.5 [facility] [place] Comment on above: Performed By: #### A 1C #### [facility] [address] [place] [address] Dr. Eddie Lerner LYMPH # 1.9 103/ul Normal 1.2-3.8 [facility] Comment on above: Performed By: #### A 1C #### [facility] [address] [place] [address] Dr. Eddie Lerner Lymphocytes/100 WBC (Bld) 13.8 % Critically low 20.5-60.0 [facility] [place] Comment on above: Performed By: #### A 1C #### [facility] [address] [place] [address] Dr. Eddie Lerner MANUAL DIFF REQ NO Normal [facility] Comment on above: Performed By: #### A 1C #### [facility] [address] [place] [address] Dr. Eddie Lerner MCH (RBC) [Entitic mass] 27.8 pg Normal 25.9-34.0 [facility] [place] Comment on above: Performed By: #### A 1C #### [facility] [address] [place] [address] Dr. Eddie Lerner MCHC (RBC) [Mass/Vol] 31.8 g/dL Normal 29.9-35.2 [facility] Comment on above: Performed By: #### A 1C #### [facility] [address] [place] [address] Dr. Eddie Lerner MCV (RBC) [Entitic vol] 87.4 fL Normal 80.0-94.0 [facility] Comment on above: Performed By: #### A 1C #### [facility] [address] [place] [address] Dr. Eddie Lerner MONO # 0.8 103/ul Normal 0.3-0.8 [facility] Comment on above: Performed By: #### A 1C #### [facility] [address] [place] [address] Dr. Eddie Lerner Monocytes/100 WBC (Bld) 5.9 % Normal 1.7-12.0 [facility] Comment on above: Performed By: #### A 1C #### [facility] [address] [place] [address] Dr. Eddie Lerner NEUT # 10.3 103/ul Critically high 1.4-6.5 [facility] Comment on above: Performed By: #### A 1C #### [facility] [address] [place] [address] Dr. Eddie Lerner Neutrophils/100 WBC (Bld) 76.3 % Critically high 43.0-75.0 [facility] [place] Comment on above: Performed By: #### A 1C #### [facility] [address] [place] [address] Dr. Eddie Lerner Platelet mean volume (Bld) [Entitic vol] 10.2 fL Normal 9.5-13.5 [facility] Comment on above: Performed By: #### A 1C #### [facility] [address] [place] [address] Dr. Eddie Lerner PLT 288 103/ul Normal 150-450 [facility] Comment on above: Performed By: #### A 1C #### [facility] [address] [place] [address] Dr. Eddie Lerner RBC 4.46 106/ul Critically low 4.70-6.10 [facility] Comment on above: Performed By: #### A 1C #### [facility] [address] [place] [address] Dr. Eddie Lerner WBC 13.5 103/ul Critically high 4.0-11.0 [facility] [place] Comment on above: Performed By: #### A 1C #### [facility] [address] [place] [address] Dr. Eddie Lerner GLYCOHEMOGLOBIN A1Con 2022 ADA RECOMMENDATION SEE BELOW Normal [facility] [place] Comment on above: Result Comment: ADA RECOMMENDED LIMIT 4.0 - 6.0 ADA THERAPEUTIC TARGET < 7.0 ACTION SUGGESTED > 7.0 Performed By: #### A 1C #### [facility] [address] [place] [address] Dr. Eddie Lerner Glucose [Mass/Vol] 283 mg/dL Normal [facility] Comment on above: Performed By: #### A 1C #### [facility] [address] [place] [address] Dr. Eddie Lerner HbA1c (Bld) [Mass fraction] 11.5 % Critically high 4.5-6.2 [facility] [place] Comment on above: Performed By: #### A 1C #### [facility] [address] [place] [address] Dr. Eddie Lerner LIPID PROFILEon 06-06-2022 CHOL-HDL RATIO NORM SEE BELOW Normal [facility] Comment on above: Result Comment: 3.3 - 4.4 LOW RISK 4.4 - 7.1 AVERAGE RISK 7.1 - 11.0 MODERATE RISK >11.0 HIGH RISK Performed By: #### R ENAL, LIPID, LIVER, TSH #### [facility] [address] [place] [address] Dr. Eddie Lerner Cholesterol [Mass/Vol] 152 mg/dL Normal <=200 [facility] [place] Comment on above: Performed By: #### R ENAL, LIPID, LIVER, TSH #### [facility] [address] [place] [address] Dr. Eddie Lerner Cholesterol in HDL [Mass/Vol] 51 mg/dL Normal 40-60 [facility] [place] Comment on above: Performed By: #### R ENAL, LIPID, LIVER, TSH #### [facility] [address] [place] [address] Dr. Eddie Lerner Cholesterol in LDL [Mass/Vol] 61.0 mg/dL Normal [facility] Comment on above: Performed By: #### R ENAL, LIPID, LIVER, TSH #### [facility] [address] [place] [address] Dr. Eddie Lerner Cholesterol.total/C holesterol in HDL [Mass ratio] 3.0 {ratio} Normal [facility] [place] Comment on above: Performed By: #### R ENAL, LIPID, LIVER, TSH #### [facility] [address] [place] [address] Dr. Eddie Lerner HDL NORMAL > or = 60 mg/dl - LO W CARDIOVASCULAR RISK <40 mg/dl - HIGH CARDIOVASCULAR RISK Normal [facility] [place] Comment on above: Performed By: #### R ENAL, LIPID, LIVER, TSH #### [facility] [address] [place] [address] Dr. Eddie Lerner LDL CALC NORMAL SEE BELOW Normal [facility] [place] Comment on above: Result Comment: <100 mg/dl OPTIMAL 100 - 129 mg/dl NEAR OR ABOVE OPTIMAL 130 - 159 mg/dl BORDERLINE HIGH 160 - 189 mg/dl HIGH >190 mg/dl VERY HIGH Performed By: #### R ENAL, LIPID, LIVER, TSH #### [facility] [address] [place] [address] Dr. Eddie Lerner Triglyceride [Mass/Vol] 200 mg/dL Critically high <=150 [facility] [place] Comment on above: Performed By: #### R ENAL, LIPID, LIVER, TSH #### [facility] [address] [address] [address] Eddie Lerner VLDL CALC 40.0 mg/dL Normal [facility] [place] Comment on above: Performed By: #### R ENAL, LIPID, LIVER, TSH #### [facility] [address] [address] [address] Eddie Lerner LIVER PROFILEon 06-06-2022 Albumin [Mass/Vol] 2.6 g/dL Critically low 3.4-5.0 Th e [facility] Comment on above: Performed By: #### R ENAL, LIPID, LIVER, TSH #### [facility] [address] [place] [address] Dr. Eddie Lerner Albumin/Globulin [Mass ratio] 0.6 {ratio} Normal [facility] [place] Comment on above: Performed By: #### R ENAL, LIPID, LIVER, TSH #### [facility] [address] [address] [address] Eddie Lerner ALP [Catalytic activity/Vol] 120 U/L Critically high 46-116 [facility] [place] Comment on above: Performed By: #### R ENAL, LIPID, LIVER, TSH #### [facility] [address] [place] [address] Dr. Eddie Lerner ALT [Catalytic activity/Vol] 22 U/L Normal 16-63 [facility] [place] Comment on above: Performed By: #### R ENAL, LIPID, LIVER, TSH #### [facility] [address] [place] [address] Dr. Eddie Lerner AST [Catalytic activity/Vol] 15 U/L Normal 15-37 [facility] [place] Comment on above: Performed By: #### R ENAL, LIPID, LIVER, TSH #### [facility] [address] [place] [address] Dr. Eddie Lerner BILI, CONJUGATED 0.1 mg/dL Normal 0.0-0.2 [facility] [place] Comment on above: Performed By: #### R ENAL, LIPID, LIVER, TSH #### [facility] [address] [address] [address] Eddie Lerner Bilirubin [Mass/Vol] 0.3 mg/dL Normal 0.2-1.0 [facility] [place] Comment on above: Performed By: #### R ENAL, LIPID, LIVER, TSH #### [facility] [address] [address] [address] Eddie Lerner Globulin (S) [Mass/Vol] 4.7 g/dL Normal [facility] Comment on above: Performed By: #### R ENAL, LIPID, LIVER, TSH #### [facility] [address] [address] [address] Eddie Lerner Protein [Mass/Vol] 7.3 g/dL Normal 6.4-8.2 [facility] Comment on above: Performed By: #### R ENAL, LIPID, LIVER, TSH #### [facility] [address] [place] [address] Dr. Eddie Lerner RENAL FUNCTION PANELon 06-06 Calcium [Mass/Vol] 9.0 mg/dL Normal 8.5-10.1 [facility] Comment on above: Performed By: #### R ENAL, LIPID, LIVER, TSH #### [facility] [address] [address] [address] Eddie Lerner Chloride [Moles/Vol] 96 mmol/L Critically low 98-107 [facility] Comment on above: Performed By: #### R ENAL, LIPID, LIVER, TSH #### [facility] [address] [address] [address] Eddie Lerner CO2 [Moles/Vol] 21.8 mmol/L Normal 21.0-32.0 [facility] Comment on above: Performed By: #### R ENAL, LIPID, LIVER, TSH #### [facility] [address] [address] [address] Eddie Lerner Creatinine [Mass/Vol] 2.38 mg/dL Critically high 0.70-1.30 [facility] Comment on above: Performed By: #### R ENAL, LIPID, LIVER, TSH #### [facility] [address] [place] [address] Dr. Eddie Lerner EGFR-AF COLOMBIAN 34 mL/min/1.73m2 Critically low >=60 [facility] [place] Comment on above: Performed By: #### R ENAL, LIPID, LIVER, TSH #### [facility] [address] [address] [address] Eddie Lerner EGFR-NON AF COLOMBIAN 28 mL/min/1.73m2 Critically low >=60 [facility] [place] Comment on above: Performed By: #### R ENAL, LIPID, LIVER, TSH #### [facility] [address] [place] [address] Dr. Eddie Lerner Glucose [Mass/Vol] 523 mg/dL Critically high 74-106 [facility] Comment on above: Performed By: #### R ENAL, LIPID, LIVER, TSH #### [facility] [address] [place] [address] Dr. Eddie Lerner Phosphate [Mass/Vol] 4.1 mg/dL Normal 2.6-4.7 [facility] [place] Comment on above: Performed By: #### R ENAL, LIPID, LIVER, TSH #### [facility] [address] [address] [address] Eddie Lerner Potassium [Moles/Vol] 4.6 mmol/L Normal 3.5-5.1 [facility] [place] Comment on above: Performed By: #### R ENAL, LIPID, LIVER, TSH #### [facility] [address] [place] [address] Dr. Eddie Lerner Sodium [Moles/Vol] 128 mmol/L Critically low 136-145 [facility] Comment on above: Performed By: #### R ENAL, LIPID, LIVER, TSH #### [facility] [address] [place] [address] Dr. Eddie Lerner Urea nitrogen [Mass/Vol] 28.0 mg/dL Critically high 7.0-18.0 [facility] [place] Comment on above: Performed By: #### R ENAL, LIPID, LIVER, TSH #### [facility] [address] [place] [address] Dr. Eddie Lerner TSHon 06-06-2022 TSH 1.308 uIU/mL Normal 0.358-3.740 [facility] [place] Comment on above: Performed By: #### R ENAL, LIPID, LIVER, TSH #### [facility] [address] [place] [address] Dr. Eddie Lerner UA RANDOMon 06-06-2022 Bilirubin Ql (U) Negative Normal NEGATIVE [facility] Comment on above: Performed By: #### U A #### [facility] [address] [place] [address] Dr. Eddie Lerner Clarity (U) CLEAR Normal CLEAR [facility] Comment on above: Performed By: #### U A #### [facility] [address] [place] [address] Dr. Eddie Lerner Color (U) LT. YELLOW Normal YELLOW [facility] Comment on above: Performed By: #### U A #### [facility] [address] [place] [address] Dr. Eddie Lerner Glucose Ql (U) >1000 Abnormal NEGATIVE [facility] [place] Comment on above: Performed By: #### U A #### [facility] [address] [place] [address] Dr. Eddie Lerner Hemoglobin Ql (U) TRACE-INTACT Abnormal NEGATIVE [facility] [place] Comment on above: Performed By: #### U A #### [facility] [address] [place] [address] Dr. Eddie Lerner Ketones Ql (U) Negative Normal NEGATIVE [facility] Comment on above: Performed By: #### U A #### [facility] [address] [place] [address] Dr. Eddie Lerner LEUKOCYTES Negative Normal NEGATIVE [facility] [place] Comment on above: Performed By: #### U A #### [facility] [address] [place] [address] Dr. Eddie Lerner Nitrite Ql (U) Negative Normal NEGATIVE [facility] Comment on above: Performed By: #### U A #### [facility] [address] [place] [address] Dr. Eddie Lerner pH (U) 6.5 [pH] Normal 5-9 [facility] Comment on above: Performed By: #### U A #### [facility] [address] [place] [address] Dr. Eddie Lerner SPEC GRAVITY 1.010 Normal 1.005-<=1.025 [facility] [place] Comment on above: Performed By: #### U A #### [facility] [address] [address] [address] Eddie Lerner UA PROTEIN 100 mg/dl Abnormal NEGATIVE/ TRACE [facility] Comment on above: Performed By: #### U A #### [facility] [address] [place] [address] Dr. Eddie Lerner Urobilinogen Qn (U) 0.2 {Chaya'U}/dL Normal 0.2 - 1. 0 [facility] [place] Comment on above: Performed By: #### U A #### [facility] [address] [place] [address] Dr. Eddie Lerner VITAMIN D 25 OHon 06-06-2022 VIT D 25-OH 13.9 ng/mL Normal [facility] [place] Comment on above: Performed By: #### V ITAD ####[facility] [address] [address]DrVaishali Lerner VIT D RANGES SEE BELOW Normal [facility] [place] Comment on above: Result Comment: <20 ng/mL Vit D deficient 20 - <30 ng/mL Vit D insufficient 30 - 100 ng/mL Vit D sufficient >100 ng/mL Potential Toxicity Performed By: #### V ITAD ####[facility] [address] [id number] Lerner ACID FAST SMEAR AND CXon Acid Fast Culture Negative Normal [facility] Comment on above: Result Comment: No a wendy fast bacilli isolated after 6 weeks. Performed By: #### A FB ####[facility] [address] [id number] Lerner Acid Fast Smear Negative Normal [facility] [place] Comment on above: Performed By: #### A FB ####[facility] [address] [address]Dr. Eddie Lerner [employer] Specimen Processing Tissue Grinding Normal [facility] [place] Comment on above: Performed By: #### A FB ####[facility] [address] [address]Dr. Eddie Lerner FUNGAL CULTUREon 01-19-2022 Fungus (Mycology) Culture Final report [facility] Comment on above: Performed By: #### R ENAL, LIPID, LIVER, TSH #### [facility] [address] [address] [address] Eddie Lerner Fungus Stain Final report Normal [facility] [place] Comment on above: Performed By: #### R ENJOHN, LIPID, LIVER, TSH #### [facility] [address] [address] [address] Eddie Lerner Result 1 Comment Normal [facility] [place] Comment on above: Result Comment: ANNEMARIE/ Calcofluor preparation: no fungus observed. Performed By: #### R ENAL, LIPID, LIVER, TSH #### [facility] [address] [address] [address] Eddie Lerner Result Comment: No y east or mold isolated after 4 weeks. POINT OF CARE GLUCOSEon 12-28 Glucose [Mass/Vol] 177 mg/dL Critically high 74-106 [facility] Comment on above: Performed By: #### A 1C #### [facility] [address] [address] [address] Eddie Lerner Glucose [Mass/Vol] 200 mg/dL Critically high 74-106 [facility] Comment on above: Performed By: #### P OCGLUC ####[facility] [address] [address]Dr. Eddie Lerner Covid-19 PCR (CVDTBH)on 12-28 SARS-CoV-2 (COVID-19) RNA SUDHA+probe Ql (Unsp spec) Not detected Normal NOT DETECTED [facility] Comment on above: Result Comment: This test is not yet approved or cleared by the [place] FDA. When there are no FDA-approved or cleared tests available, and other criteria are met, FDA can make tests available under an emergency access mechanism called an Emergency Use Authorization (EUA). The EUA for this test is supported by the Rn Residential of Health and Human Service's (HHS's) declaration that circumstances exist to justify the emergency use of in vitro diagnostics for the detection and/or diagnosis of the virus that causes COVID-19. This EUA will remain in effect (meaning this test can be used) for the duration of the COVID-19 declaration justifying emergency of IVDs, unless it is terminated or revoked by FDA (after which the test may no longer be used). When diagnostic testing is negative, the possibility of a false negative should be considered in the context of a patient's recent exposures and the presence of clinical signs and symptoms consistent with SARS-CoV-2. Performed By: #### A 1C #### [facility] [address] [place] [address] Dr. Eddie Lerner PROF CHEM 8 (BAS METB)on Anion gap [Moles/Vol] 15.0 mmol/L Normal [facility] [place] Comment on above: Performed By: #### R ENAL, LIPID, LIVER, TSH #### [facility] [address] [place] [address] Dr. Eddie Lerner Calcium [Mass/Vol] 9.3 mg/dL Normal 8.5-10.1 [facility] Comment on above: Performed By: #### R ENAL, LIPID, LIVER, TSH #### [facility] [address] [place] [address] Dr. Eddie Lerner Chloride [Moles/Vol] 105 mmol/L Normal 98-107 [facility] Comment on above: Performed By: #### R ENAL, LIPID, LIVER, TSH #### [facility] [address] [place] [address] Dr. Eddie Lerner CO2 [Moles/Vol] 22.1 mmol/L Normal 21.0-32.0 [facility] Comment on above: Performed By: #### R ENAL, LIPID, LIVER, TSH #### [facility] [address] [place] [address] Dr. Eddie Lerner Creatinine [Mass/Vol] 2.29 mg/dL Critically high 0.70-1.30 [facility] Comment on above: Performed By: #### R ENAL, LIPID, LIVER, TSH #### [facility] [address] [address] [address] Eddie Lrener EGFR-AF COLOMBIAN 35 mL/min/1.73m2 Critically low >=60 [facility] [place] Comment on above: Performed By: #### R ENAL, LIPID, LIVER, TSH #### [facility] [address] [place] [address] Dr. Eddie Lerner EGFR-NON AF COLOMBIAN 29 mL/min/1.73m2 Critically low >=60 [facility] [place] Comment on above: Performed By: #### R ENAL, LIPID, LIVER, TSH #### [facility] [address] [place] [address] Dr. Eddie Lerner Glucose [Mass/Vol] 115 mg/dL Critically high 74-106 [facility] Comment on above: Performed By: #### R ENAL, LIPID, LIVER, TSH #### [facility] [address] [place] [address] Dr. Eddie Lerner Potassium [Moles/Vol] 5.1 mmol/L Normal 3.5-5.1 [facility] [place] Comment on above: Performed By: #### R ENAL, LIPID, LIVER, TSH #### [facility] [address] [place] [address] Dr. Eddie Lerner Sodium [Moles/Vol] 137 mmol/L Normal 136-145 [facility] [place] Comment on above: Performed By: #### R ENAL, LIPID, LIVER, TSH #### [facility] [address] [place] [address] Dr. Eddie Lerner Urea nitrogen [Mass/Vol] 26.0 mg/dL Critically high 7.0-18.0 [facility] [place] Comment on above: Performed By: #### R ENAL, LIPID, LIVER, TSH #### [facility] [address] [place] [address] Dr. Eddie Lerner Urea nitrogen/Creatinine [Mass ratio] 11.4 mg/mg Normal [facility] [place] Comment on above: Performed By: #### R ENAL, LIPID, LIVER, TSH #### [facility] [address] [address] [address] Eddie Lerner TISSUE CULTUREon 01-08-2022 Anaerobic Culture, Extended Incubation Final report Normal [facility] Comment on above: Performed By: #### C XTISSU ####[facility] [address] [address]Dr. Eddie Lerner Result 1 Comment Normal [facility] Comment on above: Result Comment: Diph theroids, not Corynebacterium jeikeium Light growth Susceptibility not normally performed on this organism. Performed By: #### C XTISSU ####[facility] [address] [address]Dr. Eddie Lerner Result Comment: No a natanyabes recovered. Tissue Culture Final report Abnormal [facility] Comment on above: Performed By: #### C XTISSU ####[facility] [address] [address]Dr. Eddie Lerner POINT OF CARE GLUCOSEon 11-28 Glucose [Mass/Vol] 89 mg/dL Normal 74-106 [facility] Comment on above: Performed By: #### R ENAL, LIPID, LIVER, TSH #### [facility] [address] [address] [address] Eddie Lerner Glucose [Mass/Vol] 85 mg/dL Normal 74-106 [facility] Comment on above: Performed By: #### P OCGLUC ####[facility] [address] [address]Dr. Eddie Lerner GRAM STAINon 12-21-2021 COMMENTS NO ORGANISMS OBSERVED Normal [facility] Comment on above: Performed By: #### R ENAL, LIPID, LIVER, TSH #### [facility] [address] [address] [address] Eddie Lerner DIPHTHEROIDS Normal [facility] Comment on above: Performed By: #### R ENAL, LIPID, LIVER, TSH #### [facility] [address] [address] [address] Eddie Lerner EPITHELIALS Normal [facility] Comment on above: Performed By: #### R ENAL, LIPID, LIVER, TSH #### [facility] [address] [address] [address] Eddie Lerner FUNGAL ELEMENTS Normal [facility] Comment on above: Performed By: #### R ENAL, LIPID, LIVER, TSH #### [facility] [address] [address] [address] Eddie Lerner GRAM NEG BACILLI Normal [facility] Comment on above: Performed By: #### R ENAL, LIPID, LIVER, TSH #### [facility] [address] [address] [address] Eddie PRINGLE NEG DIPPLOCOCCI Normal [facility] [place] Comment on above: Performed By: #### R ENAL, LIPID, LIVER, TSH #### [facility] [address] [address] [address] Eddie Lerner GRAM POS BACILLI Normal [facility] [place] Comment on above: Performed By: #### R ENAL, LIPID, LIVER, TSH #### [facility] [address] [address] [address] Eddie Lerner GRAM POSITIVE COCCI Normal [facility] [place] Comment on above: Performed By: #### R ENAL, LIPID, LIVER, TSH #### [facility] [address] [address] [address] Eddie Lerner GRAM STAIN SOURCE Lt 1st Metatarsal Bone Normal [facility] [place] Comment on above: Performed By: #### R ENAL, LIPID, LIVER, TSH #### [facility] [address] [address] [address] Eddie Lerner GS_DIPTH Normal [facility] Comment on above: Performed By: #### R ENAL, LIPID, LIVER, TSH #### [facility] [address] [address] [address] Eddie Lerner WBC RARE Normal [facility] Comment on above: Performed By: #### R ENAL, LIPID, LIVER, TSH #### [facility] [address] [address] [address] Eddie Lerner POINT OF CARE GLUCOSEon 08-2 Glucose [Mass/Vol] 148 mg/dL Critically high 74-106 [facility] Comment on above: Performed By: #### A 1C #### [facility] [address] [place], [place] [address] Dr. Eddie Lerner Glucose [Mass/Vol] 100 mg/dL Normal 74-106 [facility] [place] Comment on above: Performed By: #### P OCGLUC ####[facility] [address] [place], [place] [address]Ie. Eddie Lerner Glucose [Mass/Vol] 85 mg/dL Normal 74-106 [facility] [place] Comment on above: Performed By: #### P OCGLUC ####[facility] [address] [place], [place] [address]Ja. Eddie Lerner Glucose [Mass/Vol] 83 mg/dL Normal 74-106 [facility] [place] Comment on above: Performed By: #### R ENAL, LIPID, LIVER, TSH #### [facility] [address] [place], [place] [address] Dr. Eddie Lerner Covid-19 PCR (CVDTB)on 11-28 SARS-CoV-2 (COVID-19) RNA SUDHA+probe Ql (Unsp spec) Not detected Normal NOT DETECTED [facility] Comment on above: Result Comment: This test is not yet approved or cleared by the [place] FDA. When there are no FDA-approved or cleared tests available, and other criteria are met, FDA can make tests available under an emergency access mechanism called an Emergency Use Authorization (EUA). The EUA for this test is supported by the Rn Residential of Health and Human Service's (HHS's) declaration that circumstances exist to justify the emergency use of in vitro diagnostics for the detection and/or diagnosis of the virus that causes COVID-19. This EUA will remain in effect (meaning this test can be used) for the duration of the COVID-19 declaration justifying emergency of IVDs, unless it is terminated or revoked by FDA (after which the test may no longer be used). When diagnostic testing is negative, the possibility of a false negative should be considered in the context of a patient's recent exposures and the presence of clinical signs and symptoms consistent with SARS-CoV-2. Performed By: #### C VDTBH ####[facility] [address] [address]Dr. Eddie Lerner PROF CHEM 8 (BAS METB)on Anion gap [Moles/Vol] 11.5 mmol/L Normal [facility] [place] Comment on above: Performed By: #### R ENAL, LIPID, LIVER, TSH #### [facility] [address] [address] [address] Eddie Lerner Calcium [Mass/Vol] 9.0 mg/dL Normal 8.5-10.1 [facility] Comment on above: Performed By: #### R ENAL, LIPID, LIVER, TSH #### [facility] [address] [address] [address] Eddie Lerner Chloride [Moles/Vol] 102 mmol/L Normal 98-107 [facility] [place] Comment on above: Performed By: #### R ENAL, LIPID, LIVER, TSH #### [facility] [address] [place] [address] Dr. Eddie Lerner CO2 [Moles/Vol] 24.8 mmol/L Normal 21.0-32.0 [facility] [place] Comment on above: Performed By: #### R ENAL, LIPID, LIVER, TSH #### [facility] [address] [place] [address] Dr. Eddie Lerner Creatinine [Mass/Vol] 2.19 mg/dL Critically high 0.70-1.30 [facility] [place] Comment on above: Performed By: #### R ENAL, LIPID, LIVER, TSH #### [facility] [address] [address] [address] Eddie Lerner EGFR-AF COLOMBIAN 37 mL/min/1.73m2 Critically low >=60 [facility] Comment on above: Performed By: #### R ENAL, LIPID, LIVER, TSH #### [facility] [address] [place] [address] Dr. Eddie Lerner EGFR-NON AF COLOMBIAN 31 mL/min/1.73m2 Critically low >=60 [facility] [place] Comment on above: Performed By: #### R ENAL, LIPID, LIVER, TSH #### [facility] [address] [address] [address] Eddie Lerner Glucose [Mass/Vol] 330 mg/dL Critically high 74-106 [facility] Comment on above: Performed By: #### R ENAL, LIPID, LIVER, TSH #### [facility] [address] [address] [address] Eddie Lerner Potassium [Moles/Vol] 5.3 mmol/L Critically high 3.5-5.1 [facility] [place] Comment on above: Performed By: #### R ENAL, LIPID, LIVER, TSH #### [facility] [address] [address] [address] Eddie Lerner Sodium [Moles/Vol] 133 mmol/L Critically low 136-145 Th [facility] Comment on above: Performed By: #### R ENAL, LIPID, LIVER, TSH #### [facility] [address] [place] [address] Dr. Eddie Lerner Urea nitrogen [Mass/Vol] 25.0 mg/dL Critically high 7.0-18.0 [facility] [place] Comment on above: Performed By: #### R ENAL, LIPID, LIVER, TSH #### [facility] [address] [address] [address] Eddie Lerner Urea nitrogen/Creatinine [Mass ratio] 11.4 mg/mg Normal [facility] [place] Comment on above: Performed By: #### R ENAL, LIPID, LIVER, TSH #### [facility] [address] [address] [address] Eddie Lerner Comprehensive Metabolic Pane babatunde 08-01-2021 Albumin [Mass/Vol] 2.8 g/dL Low 3.2-5.5 [facility] Comment on above: Order Comment: REDRA W FOR SHORT DRAW AND HEMOLYSIS Performed By: #### P P #### [facility] [address] Albumin/Globulin [Mass ratio] 0.7 {ratio} Normal [facility] Comment on above: Order Comment: REDRA W FOR SHORT DRAW AND HEMOLYSIS Performed By: #### P P #### [facility] [address] [place] [address] [place] ALP [Catalytic activity/Vol] 87 U/L Normal 32-92 [facility] Comment on above: Order Comment: REDRA W FOR SHORT DRAW AND HEMOLYSIS Performed By: #### P P #### [address] ALT [Catalytic activity/Vol] 18 U/L Normal 10-60 [facility] Comment on above: Order Comment: REDRA W FOR SHORT DRAW AND HEMOLYSIS Performed By: #### P P #### [address] AST [Catalytic activity/Vol] 20 U/L Normal 10-42 [facility] Comment on above: Order Comment: REDRA W FOR SHORT DRAW AND HEMOLYSIS Performed By: #### P P #### [address] Bilirubin [Mass/Vol] 0.6 mg/dL Normal 0.3-1.2 [facility] Comment on above: Order Comment: REDRA W FOR SHORT DRAW AND HEMOLYSIS Performed By: #### P P #### [address] Calcium [Mass/Vol] 8.9 mg/dL Normal 8.2-10.2 [facility] Comment on above: Order Comment: REDRA W FOR SHORT DRAW AND HEMOLYSIS Performed By: #### P P #### [place] [address] [place] Chloride [Moles/Vol] 103 mmol/L Normal 95-114 [facility] Comment on above: Order Comment: REDRA W FOR SHORT DRAW AND HEMOLYSIS Performed By: #### P P #### [place] [address] [place] CO2 [Moles/Vol] 24.7 mmol/L Normal 22.0-30.0 [facility] Comment on above: Order Comment: REDRA W FOR SHORT DRAW AND HEMOLYSIS Performed By: #### P P #### [address] Creatinine [Mass/Vol] 2.34 mg/dL High 0.64-1.27 [facility] Comment on above: Order Comment: REDRA W FOR SHORT DRAW AND HEMOLYSIS Performed By: #### P P #### [facility] [address] [place] [address] [place] Estimated GFR ( Camilla 34 Normal [facility] Comment on above: Order Comment: REDRA W FOR SHORT DRAW AND HEMOLYSIS Result Comment: GFR estimated reference range: According to KDOQI guidelines, <60 ml/min/1.73m2 is sufficient to diagnose a patient with chronic kidney disease. Performed By: #### P P #### [facility] [address] Estimated GFR (Non- Am 28 [facility] Comment on above: Order Comment: REDRA W FOR SHORT DRAW AND HEMOLYSIS Performed By: #### P P #### [facility] [address] Globulin (S) [Mass/Vol] 3.9 g/dL Normal [facility] Comment on above: Order Comment: REDRA W FOR SHORT DRAW AND HEMOLYSIS Performed By: #### P P #### [address] Glucose [Mass/Vol] 171 mg/dL High 70-100 [facility] Comment on above: Order Comment: REDRA W FOR SHORT DRAW AND HEMOLYSIS Result Comment: [place] om Glucose Reference Range is dependent on time and content of last meal. Glucose of more than 200 mg/dL in a nonstressed, ambulatory subject supports the diagnosis of Diabetes Mellitus. ADA recommended reference range Performed By: #### P P #### [facility] [address] [id number] [facility] Potassium [Moles/Vol] 4.0 mmol/L Normal 3.5-5.1 [facility] Comment on above: Order Comment: REDRA W FOR SHORT DRAW AND HEMOLYSIS Performed By: #### P P #### [address] [id number] [facility] Protein [Mass/Vol] 6.7 g/dL Normal 6.1-7.9 [facility] Comment on above: Order Comment: REDRA W FOR SHORT DRAW AND HEMOLYSIS Performed By: #### P P #### [address] Sodium [Moles/Vol] 138 mmol/L Normal 136-146 [facility] Comment on above: Order Comment: REDRA W FOR SHORT DRAW AND HEMOLYSIS Performed By: #### P P #### [address] Urea nitrogen [Mass/Vol] 18 mg/dL Normal 9-23 [facility] Comment on above: Order Comment: REDRA W FOR SHORT DRAW AND HEMOLYSIS Performed By: #### P P #### [address] Ferritinon 08-01-2021 Ferritin [Mass/Vol] 151.9 ng/mL Normal 23.9-336.2 [facility] Comment on above: Order Comment: Reaso n for Exam CKD (chronic kidney disease) stage 4, GFR 15-29 ml/min;Diabe Performed By: #### C MP, CBC, MG, TROP, BNP #### [address] Hemogram CBC Without Diffon 08-01-2021 Erythrocyte distribution width (RBC) [Ratio] 15.9 % High 12.0-14.8 [facility] Comment on above: Order Comment: REDRA W FOR SHORT DRAW AND HEMOLYSIS Performed By: #### P P #### [address] Hematocrit (Bld) [Volume fraction] 38.9 % Normal 38.8-50.0 [facility] Comment on above: Order Comment: REDRA W FOR SHORT DRAW AND HEMOLYSIS Performed By: #### P P #### [address] Hemoglobin (Bld) [Mass/Vol] 12.9 g/dL Low 13.0-17.0 [facility] Comment on above: Order Comment: REDRA W FOR SHORT DRAW AND HEMOLYSIS Performed By: #### P P #### [address] MCH (RBC) [Entitic mass] 28.4 pg Normal 27.5-35.2 [facility] Comment on above: Order Comment: REDRA W FOR SHORT DRAW AND HEMOLYSIS Performed By: #### P P #### [address] MCV (RBC) [Entitic vol] 85.7 fL Normal 83.5-101 [facility] Comment on above: Order Comment: REDRA W FOR SHORT DRAW AND HEMOLYSIS Performed By: #### P P #### [address] Mean Corpuscular HGB Conc 33.1 g/dL Normal 32.5-35.6 [facility] Comment on above: Order Comment: REDRA W FOR SHORT DRAW AND HEMOLYSIS Performed By: #### P P #### [address] Platelet mean volume (Bld) [Entitic vol] 7.8 fL Normal 6.6-10.1 [facility] Comment on above: Order Comment: REDRA W FOR SHORT DRAW AND HEMOLYSIS Result Comment: PERF ORMED BY: [place] [address] PATHOLOGIST TIP PUNCHER JORDAN RODRIGUEZ M.D. Performed By: #### P P #### [address] Platelets (Bld) [#/Vol] 352 10*3/uL Normal 150-450 [facility] Comment on above: Order Comment: REDRA W FOR SHORT DRAW AND HEMOLYSIS Performed By: #### P P #### [address] RBC (Bld) [#/Vol] 4.54 10*6/uL Normal 3.90-5.60 [facility] Comment on above: Order Comment: REDRA W FOR SHORT DRAW AND HEMOLYSIS Performed By: #### P P #### [address] WBC (Bld) [#/Vol] 9.1 10*3/uL Normal 4.1-10.5 [facility] Comment on above: Order Comment: REDRA W FOR SHORT DRAW AND HEMOLYSIS Performed By: #### P P #### [address] Iron and TIBC Profileon 04- % Iron Saturation 24.0 % Normal 20-50 [facility] Comment on above: Order Comment: REDRA W FOR SHORT DRAW AND HEMOLYSIS Performed By: #### P P #### [address] Iron [Mass/Vol] 47 ug/dL Normal 40-160 [facility] Comment on above: Order Comment: REDRA W FOR SHORT DRAW AND HEMOLYSIS Performed By: #### P P #### [address] Total Iron Binding Capacity 192 ug/dL Low 255-450 [facility] Comment on above: Order Comment: REDRA W FOR SHORT DRAW AND HEMOLYSIS Performed By: #### P P #### [address] Transferrin [Mass/Vol] 137 mg/dL Low 180-380 [facility] Comment on above: Order Comment: REDRA W FOR SHORT DRAW AND HEMOLYSIS Performed By: #### P P #### [address] Magnesiumon 08-01-2021 Magnesium [Mass/Vol] 2.2 mg/dL Normal 1.6-2.6 [facility] Comment on above: Order Comment: REDRA W FOR SHORT DRAW AND HEMOLYSIS Performed By: #### P P #### [address] Parathyroid Hormone Intacton 08-01-2021 Parathyroid Hormone Intact 31.2 pg/mL Normal 12-88 [facility] Comment on above: Order Comment: Reaso n for Exam CKD (chronic kidney disease) stage 4, GFR 15-29 ml/min;Diabe Result Comment: PERF ORMED BY: [place] [address] PATHOLOGIST TIP PUNCHER JORDAN RODRIGUEZ M.D. Performed By: #### C MP, CBC, MG, TROP, BNP #### [facility] [address] [id number] [facility] Uric Acidon 08-01-2021 Urate [Mass/Vol] 8.4 mg/dL High 2.6-7.2 [facility] Comment on above: Order Comment: REDRA W FOR SHORT DRAW AND HEMOLYSIS Performed By: #### P P #### [facility] [address] [place] [address] Vitamin D 25 Hydroxy Totalon 08-01-2021 Vitamin D 25 Hydroxy Total 28.2 ng/mL Low 30-100 [facility] Comment on above: Order Comment: Reaso n for Exam CKD (chronic kidney disease) stage 4, GFR 15-29 ml/min;Diabe Result Comment: ADA MIN D STATUS 25(OH)VITAMIN D RANGE (ng/mL) Deficient <20 Insufficient 20 to <30 Sufficient 30 to 100 Reference: Aki MF,Oriana NC, Elli JONAS, et al. Evaluation,treatment, and prevention of vitamin D deficiency; an Endocrine Society clinical practice guideline. JCEM. 2010; 96(7):1911-30. Performed By: #### C MP, CBC, MG, TROP, BNP #### [address] Complete Pulmonary Functiono n 09-28-2020 Complete Pulmonary Function [facility] Main [place] [address] [place] [address] Pulmonary Function Signed Patient: Rashard Lyman MR#: [id number] : 1960 Acct:[id number] Age/Sex: 60 / M ADM Date: 09/28/20 Loc: RT Room: Type: [facility] Attending Dr: USMAN Stover APRN Ordering Provider: Latrice Lehman APRN, ACNP-BC Date of Service: 09/28/20 Accession #: Copies to: MD Latrice Logan APRN, ACNP-BC HISTORY: This is a 60-year-old, 76-inch tall, 333-pound male, reformed smoker, referred by USMAN Stover, and normally followed by Dr. Garcia with the diagnosis of COPD. The patient had inadequate durations of exhalation of 3.4 and 3.2 seconds respectively with appropriate appearances for the flow volume loops with decrease in expiratory flow and volume, but otherwise appropriate configurations for the flow volume loops. Spirometric data was acceptable and reproducible. Overall, these appear to be technically fair to adequate studies. SPIROMETRY: Prebronchodilator FEV1 to forced vital capacity ratio is normal at 79% with a severe reduction in the forced vital capacity to 2.79 L or 48% predicted, and a moderately severe reduction in the FEV1 to 2.21 L or 50% predicted. The KAD63-79% is reduced at 1.92 L/sec or 54% predicted. After administration of bronchodilators, there is an insignificant 5% improvement in the forced vital capacity and 5% improvement in the FEV1. The AHR26-05% improves insignificantly by 10%. LUNG VOLUMES: Lung volumes by plethysmography indicate a moderate reduction in total lung capacity to 5.21 L or 62% predicted with a moderate reduction in vital capacity to 2.90 L or 50% predicted, and moderate reduction in inspiratory capacity to 2.42 L or 65% predicted. Residual volume is low normal at 2.31 L or 88% predicted, and residual volume to total lung capacity ratio is normal at 44%. DIFFUSION CAPACITY: Single-breath diffusion capacity is moderately reduced at 17.0 mL/min/mmHg, which is 55% predicted, but is normal when adjusted for alveolar volume. SUMMARY: These technically adequate pulmonary function studies reveal evidence of ikxd-yy-pyvswegr restriction without clear evidence of obstruction nor is there clear evidence of a bronchodilator response. There is no clear evidence of air trapping/hyperinflation. Diffusion capacity is moderately reduced, but normalizes when adjusted for alveolar volume suggesting ventilation- perfusion mismatching may be the primary contributor to the decrease in single-breath diffusion capacity. There are no prior studies available for comparison. Clinical correlation is recommended. Transcribed By: MARIO 09/28/20 1400 Dictated By: Km Robertson MD 09/28/20 1305 Signed By: 09/28/20 1505 [facility] echo limited 1 [facility] echo [facility] [place] [address] Echocardiogram Signed Patient: Rashard Lyman MR#: [id number] : 1960 Acct:[id number] Age/Sex: 60 / M ADM Date: 09/06/20 Loc: Room: Type: [facility] Attending Dr: Gautam Bazan MD Ordering Provider: Gautam Bazan MD Date of Service: 09/06/20 [facility] echo limited: re assess pericardial effusions Copies to: Nancy Jackson MD, [facility] Gautam Bazan MD Weight: 354 lb Performed By: Mariana Kuo RDCS BSA: 2.8 m2 HR: 100 Reason For Study: re assess pericardial effusions History: COPD,DM,ESRD,HTN,hyperlipi demia, Pericardial Effusion Interpretation Summary The left ventricular size and thickness are normal. There is borderline global hypokinesis of the left ventricle. Ejection Fraction = 50-55%. Small to moderate mostly posteriorly located pericardial effusion with no indication of tamponade, the size of this effusion is less compared to the study from 08/22/2020 Small left pleural effusion. Procedure/Quality: A two-dimensional transthoracic echocardiogram was performed. The study was technically fair in quality. Left Ventricle: The left ventricular size and thickness are normal. Ejection Fraction = 50-55%. There is borderline global hypokinesis of the left ventricle. Left Atrium: The left atrium appears normal in size. Right Atrium: The right atrium appears normal in size. Right Ventricle: The right ventricular size, thickness and function are normal. Aortic Valve: The aortic valve is mildly sclerotic. Mitral Valve: The mitral valve is mildly sclerotic. Tricuspid Valve: The tricuspid valve is normal. Pulmonic Valve: The pulmonic valve is not well seen, but is grossly normal. Arteries: The aortic root is normal size. Pericardium/Pleura: Small to moderate mostly posteriorly located pericardial effusion with no indication of tamponade, the size of this effusion is less compared to the study from 08/22/2020. Small left pleural effusion. IVC/Hepatic Viens: Borderline dilated inferior vena cava. Measurements with Normals IVSd: 1.2 cm (0.7-1.1 cm)LVIDd: 5.0 cm(3.7-5.4 cm) LVPWd: 1.1 cm(0.7-1.1 cm)LVIDs: 3.7 cm(2.3-3.6 cm) Doppler with Normals MMode/2D Measurements Calculations FS: 26.3 % EDV(Teich): 118.0 ml ESV(Teich): 57.4 ml EF(Teich): 51.3 % Transcribed By: SCV 09/06/206 Dictated By: Nancy Jackson MD, [facility] 09/06/20 1232 Signed By: 09/06/20 1626 Normal [facility] Albumin [Mass/volume] in Ser um or Plasmaon 08-25-2020 Albumin [Mass/Vol] 2.0 g/dL 3.2-5.5 [facility] Basophils Auto (Bld) [#/Vol] on 08-25-2020 Basophils (Bld) [#/Vol] 0.0 10*3/uL 0.0-0.2 [facility] Basophils/100 WBC Auto (Bld) on 08-25-2020 Basophils/100 WBC (Bld) 0.1 % [facility] Blood anisocytosis detection on 08-25-2020 Anisocytosis Ql (Bld) Slight [facility] Blood hemoglobin measurement (mass/volume)on 08-25-2020 Hemoglobin (Bld) [Mass/Vol] 10.1 g/dL 13.0-17.0 [facility] Blood leukocytes automated c ount (number/volume)on 08-25-2020 WBC (Bld) [#/Vol] 12.6 10*3/uL 4.5-11.0 [facility] Blood polychromasia detectio n by light microscopyon 08-25-2020 Polychromasia LM Ql (Bld) Slight [facility] Creatinine and Glomerular fi ltration rate.predicted panel (S/P/Bld)on 08-25-2020 Creatinine [Mass/Vol] 4.06 mg/dL 0.64-1.27 [facility] ECG 12 lead ECGon 08-25-2020 ECG 12 lead ECG [facility] [place] [address] Electrocardiograph Report Signed Patient: Rashard Lyman MR#: [id number] : 1960 Acct:[id number] Age/Sex: 60 / M ADM Date: 08/18/20 Loc: Room: [address] [place] [address] Type: ADM IN Attending Dr: Gordon Ewing MD Ordering Provider: Gautam Bazan MD Date of Service: 08/25/20 ECG/ECG 12 lead ECG: Pericarditis Copies to: Test Reason : Blood Pressure : / mmHG Vent. Rate : 068 BPM Atrial Rate : 068 BPM P-R Int : 196 ms QRS Dur : 122 ms QT Int : 418 ms P-R-T Axes : 051 038 048 degrees QTc Int : 444 ms Normal sinus rhythm Nonspecific intraventricular conduction delay Early repolarization Borderline ECG When compared with ECG of 24-AUG-2020 07:43, No significant change was found Confirmed by GAUTAM BAZAN MD ([id number]) on 08/25/2020 9:51:33 AM Referred By: Electronically Signed By:GAUTAM BAZAN MD Transcribed By: MUS Dictated By: Gautam Bazan MD 08/25/20 0719 Signed By: 08/25/20 0951 Normal [facility] Eosinophils Auto (Bld) [#/Vo l]on 08-25-2020 Eosinophils (Bld) [#/Vol] 0.0 10*3/uL 0.0-0.45 [facility] Eosinophils/100 WBC Auto (Bl d)on 08-25-2020 Eosinophils/100 WBC (Bld) 0.1 % [facility] Erythrocyte distribution wid th Auto (RBC) [Ratio]on 08-25-2020 Erythrocyte distribution width (RBC) [Ratio] 16.6 % 12.0-14.8 [facility] Estimated glomerular filtrat ion rate (GFR) non- Americanon 08-25-2020 GFR/1.73 sq M.predicted among non-blacks MDRD (S/P/Bld) [Vol rate/Area] 15 mL/Min [facility] Glucose Glucometer (BldC) [M ass/Vol]on 08-25-2020 Glucose [Mass/Vol] 122 mg/dL [facility] Comment on above: Random Glucose Refer ence Range is dependent on time and content of last meal. Glucose of more than 200 mg/dL in a nonstressed, ambulatory subject supports the diagnosis of Diabetes Mellitus. Glucose Poct Glucometerson 0 08-25-2020 Commemt1 Glu2: Cleaned Meter [facility] Comment on above: Result Comment: PERF ORMED BY: [place] [address] PATHOLOGIST TIP PUNCHER JORDAN RODRIGUEZ M.D. Performed By: #### P P #### [address] Glucose [Mass/Vol] 122 mg/dL Normal [facility] Comment on above: Result Comment: [place] om Glucose Reference Range is dependent on time and content of last meal. Glucose of more than 200 mg/dL in a nonstressed, ambulatory subject supports the diagnosis of Diabetes Mellitus. Performed By: #### P P #### [address] Commemt1 Glu2: Cleaned Meter [facility] Comment on above: Result Comment: PERF ORMED BY: [facility] [address] [place] [address] PATHOLOGIST TIP PUNCHER JORDAN RODRIGUEZ M.D. Performed By: #### V BG #### Point of Care testing , Glucose [Mass/Vol] 104 mg/dL Normal [facility] Comment on above: Result Comment: [place] om Glucose Reference Range is dependent on time and content of last meal. Glucose of more than 200 mg/dL in a nonstressed, ambulatory subject supports the diagnosis of Diabetes Mellitus. Performed By: #### V BG #### Point of Care testing , Glucose [Mass/Vol] 115 mg/dL Normal [facility] Comment on above: Result Comment: [facility] Glucose Reference Range is dependent on time and content of last meal. Glucose of more than 200 mg/dL in a nonstressed, ambulatory subject supports the diagnosis of Diabetes Mellitus. PERFORMED BY: [facility] [place] [address] PATHOLOGIST TIP PUNCHER JORDAN RODRIGUEZ M.D. Performed By: #### V BG #### Point of Care testing , Hematocrit Auto (Bld) [Volum e fraction]on 08-25-2020 Hematocrit (Bld) [Volume fraction] 31.7 % 38.8-50.0 [facility] - Hematology and Cell countson 08-25-2020 Nucleated RBC/100 WBC (Bld) [Ratio] 0.2 % 0-0.5 [facility] Lymphocytes Auto (Bld) [#/Vo l]on 08-25-2020 Lymphocytes (Bld) [#/Vol] 1.1 10*3/uL 1.00-4.8 [facility] Lymphocytes/100 WBC Auto (Bl d)on 08-25-2020 Lymphocytes/100 WBC (Bld) 8.9 % [facility] MCH Auto (RBC) [Entitic mass ]on 08-25-2020 MCH (RBC) [Entitic mass] 26.2 pg 27.5-35.2 [facility] MCHC Auto (RBC) [Mass/Vol]on 08-25-2020 MCHC (RBC) [Mass/Vol] 31.9 g/dL 32.5-35.6 [facility] MCV Auto (RBC) [Entitic vol] on 08-25-2020 MCV (RBC) [Entitic vol] 82.3 fL 83.5-101 [facility] Monocytes Auto (Bld) [#/Vol] on 08-25-2020 Monocytes (Bld) [#/Vol] 1.2 10*3/uL 0.0-0.8 [facility] Monocytes/100 WBC Auto (Bld) on 08-25-2020 Monocytes/100 WBC (Bld) 9.6 % [facility] Neutrophils Auto (Bld) [#/Vo l]on 08-25-2020 Neutrophils (Bld) [#/Vol] 10.2 10*3/uL 1.8-7.7 [facility] Neutrophils/100 WBC Auto (Bl d)on 08-25-2020 Neutrophils/100 WBC (Bld) 81.3 % [facility] No Panel Informationon 08-25 Bedside Glucose Comment Glu2: cleaned meter [facility] Estimated GFR () 18 mL/Min [facility] Comment on above: GFR estimated refere nce range: According to KDOQI guidelines, <60 ml/min/1.73m2 is sufficient to diagnose a patient with chronic kidney disease. Pharmacy Creatinine Clearance (Chem 31.84 [facility] Platelet Estimate Normal Normal [facility] Platelet Morphology Comment Normal Normal [facility] Phosphate [Mass/volume] in S miki or Plasmaon 08-25-2020 Phosphate [Mass/Vol] 5.3 mg/dL 2.5-4.6 [facility] Platelet mean volume Auto (B ld) [Entitic vol]on 08-25-2020 Platelet mean volume (Bld) [Entitic vol] 7.1 fL 6.6-10.1 [facility] Platelets Auto (Bld) [#/Vol] on 08-25-2020 Platelets (Bld) [#/Vol] 388 10*3/uL 150-450 [facility] RBC Auto (Bld) [#/Vol]on RBC (Bld) [#/Vol] 3.85 10*6/uL 3.90-5.60 [facility] RBC morphologyon 08-25-2020 RBC morphology finding Nom (Bld) N/A [facility] Renal Function Panelon 08-25 Albumin [Mass/Vol] 2.0 g/dL Low 3.2-5.5 [facility] Comment on above: Performed By: #### V BG #### Point of Care testing , Calcium [Mass/Vol] 8.7 mg/dL Normal 8.2-10.2 [facility] Comment on above: Performed By: #### V BG #### Point of Care testing , Chloride [Moles/Vol] 99 mmol/L Normal 95-114 [facility] Comment on above: Performed By: #### V BG #### Point of Care testing , CO2 [Moles/Vol] 26.2 mmol/L Normal 22.0-30.0 [facility] Comment on above: Performed By: #### V BG #### Point of Care testing , Creatinine [Mass/Vol] 4.06 mg/dL High 0.64-1.27 [facility] Comment on above: Performed By: #### V BG #### Point of Care testing , Creatinine Clr Calc Pharmacy 31.84 [facility] Comment on above: Result Comment: PERF ORMED BY: [facility] [address] [place] [address] PATHOLOGIST TIP PUNCHER JORDAN RODRIGUEZ M.D. Performed By: #### V BG #### Point of Care testing , Estimated GFR ( Camilla 18 [facility] Comment on above: Result Comment: GFR estimated reference range: According to KDOQI guidelines, <60 ml/min/1.73m2 is sufficient to diagnose a patient with chronic kidney disease. Performed By: #### V BG #### Point of Care testing , Estimated GFR (Non- Am 15 [facility] Comment on above: Performed By: #### V BG #### Point of Care testing , Glucose [Mass/Vol] 113 mg/dL High 70-100 [facility] Comment on above: Result Comment: [place] om Glucose Reference Range is dependent on time and content of last meal. Glucose of more than 200 mg/dL in a nonstressed, ambulatory subject supports the diagnosis of Diabetes Mellitus. ADA recommended reference range Performed By: #### V BG #### Point of Care testing , Phosphate [Mass/Vol] 5.3 mg/dL High 2.5-4.6 [facility] Comment on above: Performed By: #### V BG #### Point of Care testing , Potassium [Moles/Vol] 4.6 mmol/L Normal 3.5-5.1 [facility] Comment on above: Performed By: #### V BG #### Point of Care testing , Sodium [Moles/Vol] 135 mmol/L Low 136-146 [facility] Comment on above: Performed By: #### V BG #### Point of Care testing , Urea nitrogen [Mass/Vol] 75 mg/dL High 9-23 [facility] Comment on above: Performed By: #### V BG #### Point of Care testing , Scan and CBCon 08-25-2020 Anisocytosis Ql (Bld) Slight Normal [facility] Comment on above: Performed By: #### V BG #### Point of Care testing , Basophils (Bld) [#/Vol] 0.0 10*3/uL Normal 0.0-0.2 [facility] Comment on above: Performed By: #### V BG #### Point of Care testing , Basophils/100 WBC (Bld) 0.1 % Normal . [facility] Comment on above: Performed By: #### V BG #### Point of Care testing , Eosinophils (Bld) [#/Vol] 0.0 10*3/uL Normal 0.0-0.45 [facility] Comment on above: Performed By: #### V BG #### Point of Care testing , Eosinophils/100 WBC (Bld) 0.1 % Normal . [facility] Comment on above: Performed By: #### V BG #### Point of Care testing , Erythrocyte distribution width (RBC) [Ratio] 16.6 % High 12.0-14.8 [facility] Comment on above: Performed By: #### V BG #### Point of Care testing , Hematocrit (Bld) [Volume fraction] 31.7 % Low 38.8-50.0 [facility] Comment on above: Performed By: #### V BG #### Point of Care testing , Hemoglobin (Bld) [Mass/Vol] 10.1 g/dL Low 13.0-17.0 [facility] Comment on above: Performed By: #### V BG #### Point of Care testing , Lymphocytes (Bld) [#/Vol] 1.1 10*3/uL Normal 1.00-4.8 [facility] Comment on above: Performed By: #### V BG #### Point of Care testing , Lymphocytes/100 WBC (Bld) 8.9 % Normal . [facility] Comment on above: Performed By: #### V BG #### Point of Care testing , MCH (RBC) [Entitic mass] 26.2 pg Low 27.5-35.2 [facility] Comment on above: Performed By: #### V BG #### Point of Care testing , MCV (RBC) [Entitic vol] 82.3 fL Low 83.5-101 [facility] Comment on above: Performed By: #### V BG #### Point of Care testing , Mean Corpuscular HGB Conc 31.9 g/dL Low 32.5-35.6 [facility] Comment on above: Performed By: #### V BG #### Point of Care testing , Monocytes (Bld) [#/Vol] 1.2 10*3/uL High 0.0-0.8 [facility] Comment on above: Performed By: #### V BG #### Point of Care testing , Monocytes/100 WBC (Bld) 9.6 % Normal . [facility] Comment on above: Performed By: #### V BG #### Point of Care testing , Neutrophils (Bld) [#/Vol] 10.2 10*3/uL High 1.8-7.7 [facility] Comment on above: Performed By: #### V BG #### Point of Care testing , Neutrophils/100 WBC (Bld) 81.3 % Normal . [facility] Comment on above: Performed By: #### V BG #### Point of Care testing , Nucleated RBC/100 WBC (Bld) [Ratio] 0.2 % Normal 0-0.5 [facility] Comment on above: Performed By: #### V BG #### Point of Care testing , Platelet Estimate Normal Normal Normal [facility] Comment on above: Performed By: #### V BG #### Point of Care testing , Platelet mean volume (Bld) [Entitic vol] 7.1 fL Normal 6.6-10.1 [facility] Comment on above: Performed By: #### V BG #### Point of Care testing , Platelet Morphology Normal Normal Normal [facility] Comment on above: Result Comment: PERF ORMED BY: [facility] [place] [address] PATHOLOGIST TIP PUNCHER JORDAN RODRIGUEZ M.D. Performed By: #### V BG #### Point of Care testing , Platelets (Bld) [#/Vol] 388 10*3/uL Normal 150-450 [facility] Comment on above: Performed By: #### V BG #### Point of Care testing , Polychromasia Slight Normal [facility] Comment on above: Performed By: #### V BG #### Point of Care testing , RBC (Bld) [#/Vol] 3.85 10*6/uL Low 3.90-5.60 [facility] Comment on above: Performed By: #### V BG #### Point of Care testing , WBC (Bld) [#/Vol] 12.6 10*3/uL High 4.5-11.0 [facility] Comment on above: Performed By: #### V BG #### Point of Care testing , Serum or plasma calcium joel urement (mass/volume)on 08-25-2020 Calcium [Mass/Vol] 8.7 mg/dL 8.2-10.2 [facility] Serum or plasma chloride faraz surement (moles/volume)on 08-25-2020 Chloride [Moles/Vol] 99 mmol/L 95-114 [facility] Serum or plasma glucose joel urement (mass/volume)on 08-25-2020 Glucose [Mass/Vol] 113 mg/dL 70-100 [facility] Comment on above: ADA recommended refe rence rangeRandom Glucose Reference Range is dependent on time and content of last meal. Glucose of more than 200 mg/dL in a nonstressed, ambulatory subject supports the diagnosis of Diabetes Mellitus. Serum or plasma potassium me asurement (moles/volume)on 08-25-2020 Potassium [Moles/Vol] 4.6 mmol/L 3.5-5.1 [facility] Serum or plasma sodium measu rement (moles/volume)on 08-25-2020 Sodium [Moles/Vol] 135 mmol/L 136-146 [facility] Serum or plasma total carbon dioxide measurement (moles/volume)on 08-25-2020 CO2 [Moles/Vol] 26.2 mmol/L 22.0-30.0 [facility] Serum or plasma urea nitroge n measurement (mass/volume)on 08-25-2020 Urea nitrogen [Mass/Vol] 75 mg/dL 9 [facility] Diff and CBCon 08-24-2020 Anisocytosis Ql (Bld) Slight Normal [facility] Comment on above: Performed By: #### C OVID-19 LIAT, SOFIANEG #### [facility] [address] Band form neutrophils/100 WBC (Bld) 1 % Normal 0-5 [facility] Comment on above: Performed By: #### C OVID-19 LIAT, SOFIANEG #### [facility] [address] [place] [address] [place] Basophilic stippling LM Ql (Bld) Slight Normal [facility] Comment on above: Performed By: #### C OVID-19 LIAT, SOFIANEG #### [facility] [address] [place] [address] [place] Erythrocyte distribution width (RBC) [Ratio] 16.6 % High 12.0-14.8 [facility] Comment on above: Performed By: #### C OVID-19 LIAT, SOFIANEG #### [facility] [address] [place] [address] [place] Hematocrit (Bld) [Volume fraction] 30.0 % Low 38.8-50.0 [facility] Comment on above: Performed By: #### C OVID-19 LIAT, SOFIANEG #### [facility] [address] [place] [address] [place] Hemoglobin (Bld) [Mass/Vol] 10.1 g/dL Low 13.0-17.0 [facility] Comment on above: Performed By: #### C OVID-19 LIAT, SOFIANEG #### [facility] [address] [place] [address] [place] Lymphocytes/100 WBC (Bld) 6 % Low 18-42 [facility] Comment on above: Performed By: #### C OVID-19 LIAT, SOFIANEG #### [address] MCH (RBC) [Entitic mass] 27.5 pg Normal 27.5-35.2 [facility] Comment on above: Performed By: #### C OVID-19 LIAT, SOFIANEG #### [address] MCV (RBC) [Entitic vol] 81.9 fL Low 83.5-101 [facility] Comment on above: Performed By: #### C OVID-19 LIAT, SOFIANEG #### [address] Mean Corpuscular HGB Conc 33.6 g/dL Normal 32.5-35.6 [facility] Comment on above: Performed By: #### C OVID-19 LIAT, SOFIANEG #### [address] Metamyelocytes 1 % High 0-0 [facility] Comment on above: Performed By: #### C OVID-19 LIAT, SOFIANEG #### [address] Monocytes/100 WBC (Bld) 4 % Normal 2-11 [facility] Comment on above: Performed By: #### C OVID-19 LIAT, SOFIANEG #### [place] [address] [place] Myelocytes 1 % High 0-0 [facility] Comment on above: Performed By: #### C OVID-19 LIAT, SOFIANEG #### [facility] [address] [place] [address] [place] Nucleated RBC/100 WBC (Bld) [Ratio] 0.0 % Normal 0-0.5 [facility] Comment on above: Result Comment: PERF ORMED BY: [place] [address] PATHOLOGIST TIP PUNCHER JORDAN RODRIGUEZ M.D. Performed By: #### C OVID-19 LIAT, SOFIANEG #### [address] Platelet Estimate Normal Normal Normal [facility] Comment on above: Performed By: #### C OVID-19 LIAT, SOFIANEG #### [address] Platelet mean volume (Bld) [Entitic vol] 7.0 fL Normal 6.6-10.1 [facility] Comment on above: Performed By: #### C OVID-19 LIAT, SOFIANEG #### [address] Platelet Morphology Normal Normal Normal [facility] Comment on above: Result Comment: PERF ORMED BY: [place] [address] PATHOLOGIST TIP PUNCHER JORDAN RODRIGUEZ M.D. Performed By: #### C OVID-19 LIAT, SOFIANEG #### [address] Platelets (Bld) [#/Vol] 359 10*3/uL Normal 150-450 [facility] Comment on above: Performed By: #### C OVID-19 LIAT, SOFIANEG #### [address] Polychromasia Slight Normal [facility] Comment on above: Performed By: #### C OVID-19 LIAT, SOFIANEG #### [address] RBC (Bld) [#/Vol] 3.66 10*6/uL Low 3.90-5.60 [facility] Comment on above: Performed By: #### C OVID-19 LIAT, SOFIANEG #### [facility] [address] [place] [address] [place] Rouleaux Slight Normal [facility] Comment on above: Performed By: #### C OVID-19 LIAT, SOFIANEG #### [facility] [address] [place] [address] Segmented neutrophils/100 WBC (Bld) 87 % High 50-70 [facility] Comment on above: Performed By: #### C OVID-19 LIAT, SOFIANEG #### [facility] [address] [place] [address] WBC (Bld) [#/Vol] 11.2 10*3/uL High 4.5-11.0 [facility] Comment on above: Performed By: #### C OVID-19 LIAT, SOFIANEG #### [address] ECG 12 lead ECGon 08-24-2020 ECG 12 lead ECG [facility] [place] [address] [place] [address] Electrocardiograph Report Signed Patient: Rashard Lyman MR#: [id number] : 1960 Acct:[id number] Age/Sex: 60 / M ADM Date: 08/18/20 Loc: Room: [address] [place] [address] Type: ADM IN Attending Dr: Gordon Ewing MD Ordering Provider: Gautam Bazan MD Date of Service: 08/24/20 ECG/ECG 12 lead ECG: Pericarditis Copies to: Test Reason : Blood Pressure : / mmHG Vent. Rate : 070 BPM Atrial Rate : 070 BPM P-R Int : 208 ms QRS Dur : 122 ms QT Int : 414 ms P-R-T Axes : 062 045 033 degrees QTc Int : 447 ms Normal sinus rhythm Nonspecific intraventricular conduction delay Early repolarization Borderline ECG When compared with ECG of 23-AUG-2020 07:30, No significant change was found Confirmed by GAUTAM BAZAN MD ([id number]) on 08/24/2020 10:49:37 AM Referred By: Electronically Signed By:GAUTAM BAZAN MD Transcribed By: MUS Dictated By: Gautam Bazan MD 08/24/20 0743 Signed By: 08/24/20 1049 Normal [facility] Erythrocyte basophilic stipp ling detectionon 08-24-2020 Basophilic stippling LM Ql (Bld) Slight [facility] Glucose Poct Glucometerson 0 08-24-2020 Glucose [Mass/Vol] 129 mg/dL Normal [facility] Comment on above: Result Comment: [place] om Glucose Reference Range is dependent on time and content of last meal. Glucose of more than 200 mg/dL in a nonstressed, ambulatory subject supports the diagnosis of Diabetes Mellitus. PERFORMED BY: [address] [place] [address] PATHOLOGIST TIP PUNCHER JORDAN RODRIGUEZ M.D. Performed By: #### V BG #### Point of Care testing , Commemt1 Glu2: Cleaned Meter [facility] Comment on above: Result Comment: PERF ORMED BY: [facility] [address] [facility] [place] [address] PATHOLOGIST TIP PUNCHER JORDAN RODRIGUEZ M.D. Performed By: #### V BG #### Point of Care testing , Glucose [Mass/Vol] 108 mg/dL [facility] Comment on above: Result Comment: [place] Glucose Reference Range is dependent on time and content of last meal. Glucose of more than 200 mg/dL in a nonstressed, ambulatory subject supports the diagnosis of Diabetes Mellitus. Performed By: #### V BG #### Point of Care testing , Glucose [Mass/Vol] 60 mg/dL Off scale low [facility] Comment on above: Result Comment: [place] om Glucose Reference Range is dependent on time and content of last meal. Glucose of more than 200 mg/dL in a nonstressed, ambulatory subject supports the diagnosis of Diabetes Mellitus. PERFORMED BY: [facility] [address] [facility] [place] [id number] PATHOLOGIST TIP PUNCHER JORDAN RODRIGUEZ M.D. Performed By: #### V BG #### Point of Care testing , Glucose [Mass/Vol] 130 mg/dL Normal [facility] Comment on above: Result Comment: [place] om Glucose Reference Range is dependent on time and content of last meal. Glucose of more than 200 mg/dL in a nonstressed, ambulatory subject supports the diagnosis of Diabetes Mellitus. PERFORMED BY: [place] [address] PATHOLOGIST TIP PUNCHER JORDAN RODRIGUEZ M.D. Performed By: #### V BG #### Point of Care testing , Glucose [Mass/Vol] 72 mg/dL Normal [facility] Comment on above: Result Comment: [place] om Glucose Reference Range is dependent on time and content of last meal. Glucose of more than 200 mg/dL in a nonstressed, ambulatory subject supports the diagnosis of Diabetes Mellitus. PERFORMED BY: [place] [address] PATHOLOGIST TIP PUNCHER JORDAN RODRIGUEZ M.D. Performed By: #### C OVID-19 DELGDAO JOSUE #### [address] Glucose [Mass/Vol] 96 mg/dL Normal [facility] Comment on above: Result Comment: [place] om Glucose Reference Range is dependent on time and content of last meal. Glucose of more than 200 mg/dL in a nonstressed, ambulatory subject supports the diagnosis of Diabetes Mellitus. PERFORMED BY: [place] [id number] PATHOLOGIST TIP PUNCHER JORDAN RODRIGUEZ M.D. Performed By: #### C OVID-19 BARB JOSUEIANEG #### [address] Laboratory - Hematology and Cell countson 08-24-2020 Band form neutrophils/100 WBC (Bld) 1 % 0-5 [facility] Lymphocytes/100 WBC Auto (Bl d)on 08-24-2020 Lymphocytes/100 WBC (Bld) 6 % 18-42 [facility] Metamyelocytes/100 WBC Manua l cnt (Bld)on 08-24-2020 Metamyelocytes/100 WBC (Bld) 1 % 0-0 [facility] Monocytes/100 WBC Manual cnt (Bld)on 08-24-2020 Monocytes/100 WBC (Bld) 4 % 2-11 [facility] Myelocytes/100 WBC Manual cn t (Bld)on 08-24-2020 Myelocytes/100 WBC (Bld) 1 % 0-0 [facility] No Panel Informationon 08-24 Roucoby Rasheed [facility] Renal Function Panelon 08-24 Albumin [Mass/Vol] 1.9 g/dL Low 3.2-5.5 [facility] Comment on above: Performed By: #### C OVID-19 LIAT, SOFIANEG #### [facility] [address] Calcium [Mass/Vol] 8.8 mg/dL Normal 8.2-10.2 [facility] Comment on above: Performed By: #### C OVID-19 LIAT, SOFIANEG #### [facility] [address] Chloride [Moles/Vol] 99 mmol/L Normal 95-114 [facility] Comment on above: Performed By: #### C OVID-19 LIAT, SOFIANEG #### [facility] [address] CO2 [Moles/Vol] 24.4 mmol/L Normal 22.0-30.0 [facility] Comment on above: Performed By: #### C OVID-19 LIAT, SOFIANEG #### [facility] [address] Creatinine [Mass/Vol] 4.21 mg/dL High 0.64-1.27 [facility] Comment on above: Performed By: #### C OVID-19 LIAT, SOFIANEG #### [facility] [address] [place] [address] [place] Creatinine Clr Calc Pharmacy 30.71 Normal [facility] Comment on above: Result Comment: PERF ORMED BY: [place] [address] PATHOLOGIST TIP PUNCHER JORDAN RODRIGUEZ M.D. Performed By: #### C OVID-19 LIAT, SOFIANEG #### [facility] [address] Estimated GFR ( Camilla 18 [facility] Comment on above: Result Comment: GFR estimated reference range: According to KDOQI guidelines, <60 ml/min/1.73m2 is sufficient to diagnose a patient with chronic kidney disease. Performed By: #### C OVID-19 LIAT, SOFIANEG #### [facility] [address] Estimated GFR (Non- Am 15 [facility] Comment on above: Performed By: #### C OVID-19 LIAT, SOFIANEG #### [address] Glucose [Mass/Vol] 79 mg/dL Normal 70-100 [facility] Comment on above: Result Comment: [place] om Glucose Reference Range is dependent on time and content of last meal. Glucose of more than 200 mg/dL in a nonstressed, ambulatory subject supports the diagnosis of Diabetes Mellitus. ADA recommended reference range Performed By: #### C OVID-19 LIAT, SOFIANEG #### [address] Phosphate [Mass/Vol] 5.9 mg/dL High 2.5-4.6 [facility] Comment on above: Performed By: #### C OVID-19 LIAT, SOFIANEG #### [place] [address] [place] Potassium [Moles/Vol] 4.2 mmol/L Normal 3.5-5.1 [facility] Comment on above: Performed By: #### C OVID-19 LIAT, SOFIANEG #### [place] [address] [place] Sodium [Moles/Vol] 134 mmol/L Low 136-146 [facility] Comment on above: Performed By: #### C OVID-19 LIAT, SOFIANEG #### [place] [address] [place] Urea nitrogen [Mass/Vol] 69 mg/dL High 9-23 [facility] Comment on above: Performed By: #### C OVID-19 LIAT, SOFIANEG #### [address] Segmented neutrophils/100 WB C Manual cnt (Bld)on 08-24-2020 Segmented neutrophils/100 WBC (Bld) 87 % 50-70 [facility] KILLIAN Antinuclear Antibodieson 08-23-2020 Antinuclear Abs, IFA Negative Normal . [facility] Comment on above: Result Comment: Nega tive <1:80 Borderline 1:80 Positive >1:80 Performed at: [facility] [id number] [employer] Laborer: Mata Brian PhD, Phone: [phone] PERFORMED BY: [place] [address] PATHOLOGIST TIP PUNCHER JORDAN RODRIGUEZ M.D. Performed By: #### P P #### [address] Complete Blood Count Auto Di ffon 08-23-2020 Basophils (Bld) [#/Vol] 0.0 10*3/uL Normal 0.0-0.2 [facility] Comment on above: Result Comment: PERF ORMED BY: [place] [address] PATHOLOGIST TIP PUNCHER JORDAN RODRIGUEZ M.D. Performed By: #### C OVID-19 LIAT, SOFIANEG #### [address] Basophils/100 WBC (Bld) 0.3 % Normal . [facility] Comment on above: Performed By: #### C OVID-19 LIAT, SOFIANEG #### [place] [address] [place] Eosinophils (Bld) [#/Vol] 0.0 10*3/uL Normal 0.0-0.45 [facility] Comment on above: Performed By: #### C OVID-19 LIAT, SOFIANEG #### [facility] [address] [place] [address] Eosinophils/100 WBC (Bld) 0.1 % Normal . [facility] Comment on above: Performed By: #### C OVID-19 LIAT, SOFIANEG #### [facility] [address] Erythrocyte distribution width (RBC) [Ratio] 16.3 % High 12.0-14.8 [facility] Comment on above: Performed By: #### C OVID-19 LIAT, SOFIANEG #### [address] Hematocrit (Bld) [Volume fraction] 29.4 % Low 38.8-50.0 [facility] Comment on above: Performed By: #### C OVID-19 LIAT, SOFIANEG #### [address] Hemoglobin (Bld) [Mass/Vol] 9.4 g/dL Low 13.0-17.0 [facility] Comment on above: Performed By: #### C OVID-19 LIAT, SOFIANEG #### [facility] [address] [place] [address] Lymphocytes (Bld) [#/Vol] 0.5 10*3/uL Low 1.00-4.8 [facility] Comment on above: Performed By: #### C OVID-19 LIAT, SOFIANEG #### [address] Lymphocytes/100 WBC (Bld) 4.1 % Normal . [facility] Comment on above: Performed By: #### C OVID-19 LIAT, SOFIANEG #### [facility] [address] [place] [address] MCH (RBC) [Entitic mass] 26.2 pg Low 27.5-35.2 [facility] Comment on above: Performed By: #### C OVID-19 LIAT, SOFIANEG #### [facility] [address] [place] [address] MCV (RBC) [Entitic vol] 82.4 fL Low 83.5-101 [facility] Comment on above: Performed By: #### C OVID-19 LIAT, SOFIANEG #### [facility] [address] Mean Corpuscular HGB Conc 31.8 g/dL Low 32.5-35.6 [facility] Comment on above: Performed By: #### C OVID-19 LIAT, SOFIANEG #### [facility] [address] [place] [address] [place] Monocytes (Bld) [#/Vol] 0.6 10*3/uL Normal 0.0-0.8 [facility] Comment on above: Performed By: #### C OVID-19 LIAT, SOFIANEG #### [facility] [address] [place] [address] [place] Monocytes/100 WBC (Bld) 4.9 % Normal . [facility] Comment on above: Performed By: #### C OVID-19 LIAT, SOFIANEG #### [facility] [address] [place] [address] [place] Neutrophils (Bld) [#/Vol] 11.2 10*3/uL High 1.8-7.7 [facility] Comment on above: Performed By: #### C OVID-19 LIAT, SOFIANEG #### [facility] [address] [place] [address] [place] Neutrophils/100 WBC (Bld) 90.6 % Normal . [facility] Comment on above: Performed By: #### C OVID-19 LIAT, SOFIANEG #### [facility] [address] [place] [address] [place] Nucleated RBC/100 WBC (Bld) [Ratio] 0.2 % Normal 0-0.5 [facility] Comment on above: Performed By: #### C OVID-19 LIAT, SOFIANEG #### [facility] [address] [place] [address] [place] Platelet mean volume (Bld) [Entitic vol] 8.0 fL Normal 6.6-10.1 [facility] Comment on above: Performed By: #### C OVID-19 LIAT, SOFIANEG #### [facility] [address] Platelets (Bld) [#/Vol] 303 10*3/uL Normal 150-450 [facility] Comment on above: Performed By: #### C OVID-19 LIAT, SOFIANEG #### [facility] [address] RBC (Bld) [#/Vol] 3.57 10*6/uL Low 3.90-5.60 [facility] Comment on above: Performed By: #### C OVID-19 LIAT, SOFIANEG #### [facility] [address] WBC (Bld) [#/Vol] 12.4 10*3/uL High 4.5-11.0 [facility] Comment on above: Performed By: #### C OVID-19 LIAT, SOFIANEG #### [facility] [address] ECG 12 lead ECGon 08-23-2020 ECG 12 lead ECG [facility] Main [place] [address] [place] [address] Electrocardiograph Report Signed Patient: Rashard Lyman MR#: [id number] : 1960 Acct:[id number] Age/Sex: 60 / M ADM Date: 08/18/20 Loc: Room: [address] [place] [address] Type: ADM IN Attending Dr: Gordon Ewing MD Ordering Provider: Gautam Bazan MD Date of Service: 08/23/20 ECG/ECG 12 lead ECG: Pericarditis Copies to: Test Reason : Blood Pressure : / mmHG Vent. Rate : 075 BPM Atrial Rate : 075 BPM P-R Int : 198 ms QRS Dur : 134 ms QT Int : 412 ms P-R-T Axes : 061 055 046 degrees QTc Int : 460 ms Normal sinus rhythm Nonspecific intraventricular block St elevatio due to pericarditis Abnormal ECG When compared with ECG of 22-AUG-2020 07:51, Nonspecific T wave abnormality no longer evident in Lateral leads Confirmed by GAUTAM BAZAN MD ([id number]) on 08/23/2020 10:47:29 AM Referred By: Electronically Signed By:GAUTAM BAZAN MD Transcribed By: MUS Dictated By: Gautam Bazan MD 08/23/20 0730 Signed By: 08/23/20 1047 Normal [facility] Glucose Poct Glucometerson 0 08-23-2020 Glucose [Mass/Vol] 160 mg/dL Normal [facility] Comment on above: Result Comment: [place] om Glucose Reference Range is dependent on time and content of last meal. Glucose of more than 200 mg/dL in a nonstressed, ambulatory subject supports the diagnosis of Diabetes Mellitus. PERFORMED BY: [place] [address] PATHOLOGIST TIP PUNCHER JORDAN RODRIGUEZ M.D. Performed By: #### C OVID-19 BALJEET JOSUEEG #### [address] Glucose [Mass/Vol] 212 mg/dL Normal [facility] Comment on above: Result Comment: [place] Glucose Reference Range is dependent on time and content of last meal. Glucose of more than 200 mg/dL in a nonstressed, ambulatory subject supports the diagnosis of Diabetes Mellitus. PERFORMED BY: [place] [address] PATHOLOGIST TIP PUNCHER JORDAN RODRIGUEZ M.D. Performed By: #### C OVID-19 LIAT SOFIANEG #### [address] Glucose [Mass/Vol] 159 mg/dL Normal [facility] Comment on above: Result Comment: [place] Glucose Reference Range is dependent on time and content of last meal. Glucose of more than 200 mg/dL in a nonstressed, ambulatory subject supports the diagnosis of Diabetes Mellitus. PERFORMED BY: [place] [address] PATHOLOGIST TIP PUNCHER JORDAN RODRIGUEZ M.D. Performed By: #### C OVID-19 LIAT, SOFIANEG #### [facility] [address] [place] [id number] [place] Glucose [Mass/Vol] 73 mg/dL Normal [facility] Comment on above: Result Comment: [place] om Glucose Reference Range is dependent on time and content of last meal. Glucose of more than 200 mg/dL in a nonstressed, ambulatory subject supports the diagnosis of Diabetes Mellitus. PERFORMED BY: [place] [address] PATHOLOGIST TIP PUNCHER JORDAN RODRIGUEZ M.D. Performed By: #### C OVID-19 LIAT, SOFIANEG #### [facility] [address] [place] [address] Commemt1 Glu2: Cleaned Meter [facility] Comment on above: Result Comment: PERF ORMED BY: [place] [address] PATHOLOGIST TIP PUNCHER JORDAN RODRIGUEZ M.D. Performed By: #### C OVID-19 LIAT, SOFIANEG #### [facility] [address] [place] [address] [place] Glucose [Mass/Vol] 88 mg/dL Normal [facility] Comment on above: Result Comment: [place] om Glucose Reference Range is dependent on time and content of last meal. Glucose of more than 200 mg/dL in a nonstressed, ambulatory subject supports the diagnosis of Diabetes Mellitus. Performed By: #### C OVID-19 LIAT SOFIANEG #### [facility] [address] [place] [address] [place] Commemt1 Glu2: Cleaned Meter [facility] Comment on above: Result Comment: PERF ORMED BY: [place] [address] PATHOLOGIST TIP PUNCHER JORDAN RODRIGUEZ M.D. Performed By: #### C OVID-19 LIAT, SOFIANEG #### [facility] [address] [place], [place] [id number] [place] Glucose [Mass/Vol] 69 mg/dL Normal [facility] Comment on above: Result Comment: [place] om Glucose Reference Range is dependent on time and content of last meal. Glucose of more than 200 mg/dL in a nonstressed, ambulatory subject supports the diagnosis of Diabetes Mellitus. Performed By: #### C OVID-19 BARB JOSUEIANEG #### [address] Commemt1 [facility] Comment on above: Result Comment: Glu2 : Will Repeat Test Performed By: #### C OVID-19 LIAT SOFIANEG #### [address] Commemt2 WILL NOTIFY /JOANNE [facility] Comment on above: Performed By: #### C OVID-19 LIAT SOFIANEG #### [address] Commemt3 Cleaned Meter [facility] Comment on above: Result Comment: PERF ORMED BY: [place] [address] PATHOLOGIST TIP PUNCHER JORDAN RODRIGUEZ M.D. Performed By: #### C OVID-19 LIAT SOFIANEG #### [address] Glucose [Mass/Vol] 59 mg/dL Off scale low [facility] Comment on above: Result Comment: [facility] Glucose Reference Range is dependent on time and content of last meal. Glucose of more than 200 mg/dL in a nonstressed, ambulatory subject supports the diagnosis of Diabetes Mellitus. Performed By: #### C OVID-19 LIAT SOFIANEG #### [address] No Panel Informationon 08-23 Bedside Glucose #[address]/joanne [facility] Bedside Glucose #3 Comment Cleaned meter [facility] Renal Function Panelon 08-23 Albumin [Mass/Vol] 1.9 g/dL Low 3.2-5.5 [facility] Comment on above: Performed By: #### C OVID-19 LIAT SOFIANEG #### [address] [place] [address] [place] Calcium [Mass/Vol] 8.7 mg/dL Normal 8.2-10.2 [facility] Comment on above: Performed By: #### C OVID-19 LIAT, SOFIANEG #### [facility] [address] [place] [address] [place] Chloride [Moles/Vol] 95 mmol/L Normal 95-114 [facility] Comment on above: Performed By: #### C OVID-19 LIAT, SOFIANEG #### [facility] [address] [place] [address] [place] CO2 [Moles/Vol] 22.0 mmol/L Normal 22.0-30.0 [facility] Comment on above: Performed By: #### C OVID-19 LIAT, SOFIANEG #### [facility] [address] [place] [address] Creatinine [Mass/Vol] 4.79 mg/dL High 0.64-1.27 [facility] Comment on above: Performed By: #### C OVID-19 LIAT, SOFIANEG #### [facility] [address] [place] [address] [place] Creatinine Clr Calc Pharmacy 27.33 [facility] Comment on above: Result Comment: PERF ORMED BY: [place] [address] PATHOLOGIST TIP PUNCHER JORDAN RODRIGUEZ M.D. Performed By: #### C OVID-19 LIAT, SOFIANEG #### [facility] [address] [place] [address] Estimated GFR ( Camilla 15 [facility] Comment on above: Result Comment: GFR estimated reference range: According to KDOQI guidelines, <60 ml/min/1.73m2 is sufficient to diagnose a patient with chronic kidney disease. Performed By: #### C OVID-19 LIAT, SOFIANEG #### [facility] [address] [place] [address] [place] Estimated GFR (Non- Am 13 [facility] Comment on above: Performed By: #### C OVID-19 LIAT, SOFIANEG #### [facility] [address] Glucose [Mass/Vol] 78 mg/dL Normal 70-100 [facility] Comment on above: Result Comment: [facility] Glucose Reference Range is dependent on time and content of last meal. Glucose of more than 200 mg/dL in a nonstressed, ambulatory subject supports the diagnosis of Diabetes Mellitus. ADA recommended reference range Performed By: #### C OVID-19 LIAT SOFIANEG #### [facility] [address] Phosphate [Mass/Vol] 7.5 mg/dL High 2.5-4.6 [facility] Comment on above: Performed By: #### C OVID-19 LIAT SOFIANEG #### [address] Potassium [Moles/Vol] 4.4 mmol/L Normal 3.5-5.1 [facility] Comment on above: Performed By: #### C OVID-19 LIAT SOFIANEG #### [address] Sodium [Moles/Vol] 131 mmol/L Low 136-146 [facility] Comment on above: Performed By: #### C OVID-19 LIAT SOFIANEG #### [address] Urea nitrogen [Mass/Vol] 63 mg/dL High 9-23 [facility] Comment on above: Performed By: #### C OVID-19 LIAT SOFIANEG #### [facility] [address] [place] [id number] [place] Rheumatoid Factoron 08-24-19 21 Rheumatoid Factor 20.6 High 0.0-13.9 [facility] Comment on above: Result Comment: Perf ormed at: CB - [facility] [address] [place], [place] [id number] Salvage Laborer: Mata Brian PhD, Phone: [phone] Performed By: #### P P #### [facility] [address] [place] [address] [place] Serum nuclear antibody titer on 08-23-2020 Nuclear Ab (S) [Titer] Negative [facility] Comment on above: Negative <1:80 Matthew yoon 1:80 Positive >1:80Performed at: [employer] [facility] [address] [id number] Director: Mata Brian PhD, Phone: [phone] Serum or plasma rheumatoid f actor measurement (units/volume)on 08-23-2020 Rheumatoid factor Qn 20.6 [IU]/mL [facility] Comment on above: Performed at: [employer] [facility] [address] [id number] Director: Mata Brian PhD, Phone: [phone] Basic Metabolic Panelon 07-29 Calcium [Mass/Vol] 8.6 mg/dL Normal 8.2-10.2 [facility] Comment on above: Performed By: #### C MP, CBC, MG, TROP, BNP #### [address] Chloride [Moles/Vol] 94 mmol/L Low 95-114 [facility] Comment on above: Performed By: #### C MP, CBC, MG, TROP, BNP #### [address] CO2 [Moles/Vol] 21.4 mmol/L Low 22.0-30.0 [facility] Comment on above: Performed By: #### C MP, CBC, MG, TROP, BNP #### [address] Creatinine [Mass/Vol] 4.84 mg/dL High 0.64-1.27 [facility] Comment on above: Performed By: #### C MP, CBC, MG, TROP, BNP #### [address] Creatinine Clr Calc Pharmacy 27.02 Normal [facility] Comment on above: Result Comment: PERF ORMED BY: [place] [address] PATHOLOGIST TIP PUNCHER JORDAN RODRIGUEZ M.D. Performed By: #### C MP, CBC, MG, TROP, BNP #### [address] Estimated GFR ( Camilla 15 [facility] Comment on above: Result Comment: GFR estimated reference range: According to KDOQI guidelines, <60 ml/min/1.73m2 is sufficient to diagnose a patient with chronic kidney disease. Performed By: #### C MP, CBC, MG, TROP, BNP #### [address] Estimated GFR (Non- Am 12 [facility] Comment on above: Performed By: #### C MP, CBC, MG, TROP, BNP #### [address] Glucose [Mass/Vol] 154 mg/dL High 70-100 [facility] Comment on above: Result Comment: [place] om Glucose Reference Range is dependent on time and content of last meal. Glucose of more than 200 mg/dL in a nonstressed, ambulatory subject supports the diagnosis of Diabetes Mellitus. ADA recommended reference range Performed By: #### C MP, CBC, MG, TROP, BNP #### [address] Potassium [Moles/Vol] 4.9 mmol/L Normal 3.5-5.1 [facility] Comment on above: Performed By: #### C MP, CBC, MG, TROP, BNP #### [address] Sodium [Moles/Vol] 129 mmol/L Low 136-146 [facility] Comment on above: Performed By: #### C MP, CBC, MG, TROP, BNP #### [address] Urea nitrogen [Mass/Vol] 54 mg/dL High 9-23 [facility] Comment on above: Performed By: #### C MP, CBC, MG, TROP, BNP #### [address] biopsyon 08-22-2020 Transferrin [Mass/Vol] 104 mg/dL 180-380 [facility] Complete Blood Count Auto Di ffon 08-22-2020 Basophils (Bld) [#/Vol] 0.0 10*3/uL Normal 0.0-0.2 [facility] Comment on above: Result Comment: PERF ORMED BY: [place] [address] PATHOLOGIST TIP PUNCHER JORDAN RODRIGUEZ M.D. Performed By: #### C MP, CBC, MG, TROP, BNP #### [address] Basophils/100 WBC (Bld) 0.2 % Normal . [facility] Comment on above: Performed By: #### C MP, CBC, MG, TROP, BNP #### [address] Eosinophils (Bld) [#/Vol] 0.0 10*3/uL Normal 0.0-0.45 [facility] Comment on above: Performed By: #### C MP, CBC, MG, TROP, BNP #### [address] Eosinophils/100 WBC (Bld) 0.1 % Normal . [facility] Comment on above: Performed By: #### C MP, CBC, MG, TROP, BNP #### [address] Erythrocyte distribution width (RBC) [Ratio] 16.4 % High 12.0-14.8 [facility] Comment on above: Performed By: #### C MP, CBC, MG, TROP, BNP #### [address] Hematocrit (Bld) [Volume fraction] 30.4 % Low 38.8-50.0 [facility] Comment on above: Performed By: #### C MP, CBC, MG, TROP, BNP #### [address] Hemoglobin (Bld) [Mass/Vol] 9.9 g/dL Low 13.0-17.0 [facility] Comment on above: Performed By: #### C MP, CBC, MG, TROP, BNP #### [address] Lymphocytes (Bld) [#/Vol] 0.6 10*3/uL Low 1.00-4.8 [facility] Comment on above: Performed By: #### C MP, CBC, MG, TROP, BNP #### [address] Lymphocytes/100 WBC (Bld) 5.6 % Normal . [facility] Comment on above: Performed By: #### C MP, CBC, MG, TROP, BNP #### [address] MCH (RBC) [Entitic mass] 27.1 pg Low 27.5-35.2 [facility] Comment on above: Performed By: #### C MP, CBC, MG, TROP, BNP #### [address] MCV (RBC) [Entitic vol] 83.4 fL Low 83.5-101 [facility] Comment on above: Performed By: #### C MP, CBC, MG, TROP, BNP #### [address] Mean Corpuscular HGB Conc 32.5 g/dL Normal 32.5-35.6 [facility] Comment on above: Performed By: #### C MP, CBC, MG, TROP, BNP #### [address] Monocytes (Bld) [#/Vol] 0.8 10*3/uL Normal 0.0-0.8 [facility] Comment on above: Performed By: #### C MP, CBC, MG, TROP, BNP #### [address] Monocytes/100 WBC (Bld) 7.7 % Normal . [facility] Comment on above: Performed By: #### C MP, CBC, MG, TROP, BNP #### [address] Neutrophils (Bld) [#/Vol] 9.5 10*3/uL High 1.8-7.7 [facility] Comment on above: Performed By: #### C MP, CBC, MG, TROP, BNP #### [address] Neutrophils/100 WBC (Bld) 86.4 % Normal . [facility] Comment on above: Performed By: #### C MP, CBC, MG, TROP, BNP #### [address] Nucleated RBC/100 WBC (Bld) [Ratio] 0.0 % Normal 0-0.5 [facility] Comment on above: Performed By: #### C MP, CBC, MG, TROP, BNP #### [address] Platelet mean volume (Bld) [Entitic vol] 7.8 fL Normal 6.6-10.1 [facility] Comment on above: Performed By: #### C MP, CBC, MG, TROP, BNP #### [address] Platelets (Bld) [#/Vol] 227 10*3/uL Normal 150-450 [facility] Comment on above: Performed By: #### C MP, CBC, MG, TROP, BNP #### [place] [address] [place] RBC (Bld) [#/Vol] 3.64 10*6/uL Low 3.90-5.60 [facility] Comment on above: Performed By: #### C MP, CBC, MG, TROP, BNP #### [address] WBC (Bld) [#/Vol] 11.0 10*3/uL Normal 4.5-11.0 [facility] Comment on above: Performed By: #### C MP, CBC, MG, TROP, BNP #### [place] [id number] [facility] ECG 12 lead ECGon 08-22-2020 ECG 12 lead ECG [facility] Main [place] [id number] Electrocardiograph Report Signed Patient: Rashard Lyman MR#: [id number] : 1960 Acct:[id number] Age/Sex: 60 / M ADM Date: 08/18/20 Loc: 4 Room: [address] [place] [address] Type: ADM IN Attending Dr: Gordon Ewing MD Ordering Provider: Gordon Ewing MD Date of Service: 08/22/20 ECG/ECG 12 lead ECG: pt evaluation Copies to: Test Reason : Blood Pressure : / mmHG Vent. Rate : 133 BPM Atrial Rate : 174 BPM P-R Int : 000 ms QRS Dur : 118 ms QT Int : 330 ms P-R-T Axes : 000 042 -41 degrees QTc Int : 491 ms Atrial fibrillation with rapid ventricular response ST elevation due to pericarditis Abnormal ECG No previous ECGs available Confirmed by GAUTAM BAZAN MD ([id number]) on 08/23/2020 10:47:05 AM Referred By: Electronically Signed By:GAUTAM BAZAN MD Transcribed By: MUS Dictated By: Gautam Bazan MD 08/22/20 1221 Signed By: 08/23/20 1047 Normal [facility] ECG 12 lead ECG [facility] Main [place] [id number] Electrocardiograph Report Signed Patient: Rashard Lyman MR#: [id number] : 1960 Acct:[id number] Age/Sex: 60 / M ADM Date: 08/18/20 Loc: 4 Room: [address] [place] [address] Type: ADM IN Attending Dr: Gordon Ewing MD Ordering Provider: Gautam Bazan MD Date of Service: 08/22/20 ECG/ECG 12 lead ECG: Pericarditis Copies to: Test Reason : Blood Pressure : / mmHG Vent. Rate : 079 BPM Atrial Rate : 079 BPM P-R Int : 212 ms QRS Dur : 134 ms QT Int : 404 ms P-R-T Axes : 059 037 025 degrees QTc Int : 463 ms Sinus rhythm with 1st degree AV block Nonspecific intraventricular block St elevation likely pericarditis Abnormal ECG When compared with ECG of 21-AUG-2020 09:56, QRS duration has increased QT has shortened Confirmed by GAUTAM BAZAN MD ([id number]) on 08/22/2020 12:01:01 PM Referred By: Electronically Signed By:GAUTAM BAZAN MD Transcribed By: MUS Dictated By: Gautam Bazan MD 08/22/20 0751 Signed By: 08/22/20 1201 [facility] echo transthoracicon [facility] echo transthoracic [facility] [place] [address] Echocardiogram Signed Patient: Rashard Lyman MR#: [id number] : 1960 Acct:[id number] Age/Sex: 60 / M ADM Date: 08/18/20 Loc: Room: [address] [place] [address] Type: ADM IN Attending Dr: Gordon Ewing MD Ordering Provider: Gautam Bazan MD Date of Service: 08/22/20 [facility] echo transthoracic: Pericarditis Copies to: Gautam Bazan MD Weight: 362 lb Performed By: DOREEN Ling BSA: 2.9 m2 BP: 123/77 mmHg HR: 93 Reason For Study: Pericarditis History: COPD,DM,ESRD,HTN,hyperlipi demia Interpretation Summary Mild concentric left ventricular hypertrophy. Ejection Fraction = 50-55%. The LV ejection fraction is low normal . A variety of Doppler measurements indicate impaired left ventricular relaxation, which is associated with grade I/IV or mild diastolic dysfunction. Moderate-sized pericardial effusion without evidence of increased intrapericardial pressure Small left pleural effusion. Moderately dilated inferior vena cava Compared to prior study, changes are noted. The pericardial and pleural effusion are new. Procedure/Quality: A two-dimensional transthoracic echocardiogram with color flow and Doppler was performed. The study was technically fair in quality. Left Ventricle: The left ventricular size is normal. Mild concentric left ventricular hypertrophy. Ejection Fraction = 50-55%. The LV ejection fraction is low normal . A variety of Doppler measurements indicate impaired left ventricular relaxation, which is associated with grade I/IV or mild diastolic dysfunction. Left Atrium: The left atrium appears normal in size. Right Atrium: The right atrium appears normal in size. Right Ventricle: The right ventricular size, thickness and function are normal. Aortic Valve: The aortic valve is mildly calcified. No aortic regurgitation is present. Mitral Valve: The mitral valve is normal in structure and function. There is no mitral regurgitation noted. Tricuspid Valve: The tricuspid valve is normal in structure and function. No tricuspid regurgitation. Pulmonic Valve: The pulmonic valve is normal in structure and function. Arteries: The aortic root is normal size. Pericardium/Pleura: Moderate-sized pericardial effusion without evidence of increased intrapericardial pressure. Small left pleural effusion. IVC/Hepatic Viens: Moderately dilated inferior vena cava. Measurements with Normals IVSd: 1.1 cm (0.7-1.1 cm)LVIDd: 5.6 cm (3.7-5.4 cm) LVPWd: 1.4 cm (0.7-1.1 cm)LVIDs: 4.1 cm (2.3-3.6 cm) LA dimension: 3.8 cm(2.3-4.0 cm)Ao root diam: 3.8 cm(2.0-3.2 cm) Doppler with Normals RVSP(TR): 28.6 mmHg (18-35mmHg) MV E max jose: 80.6 cm/sec(0.8-1.3m/s) MV A max jose: 70.3 cm/sec(0.0-0.0m/s) MV E/A: 1.1 (<1.5) MMode/2D Measurements Calculations RVDd: 3.8 cm FS: 27.5 % Ao root area: LVOT diam: 2.4 cm TAPSE: 1.8 cm EDV(Teich): 11.2 cm2 LVOT area: 4.6 cm2 RV S Jose: 154.8 ml 16.5 cm/sec ESV(Teich): 73.2 ml EF(Teich): 52.7 % __ LVLd ap4: 7.3 cm SV(MOD-sp4): LAV(MOD-sp4): LA A2 area: 16.0 cm2 EDV(MOD-sp4): 61.4 ml 65.8 ml 108.0 ml LAV(MOD-sp2): LA A4 area: 20.4 cm2 LVLs ap4: 6.3 cm 44.1 ml LA length (vol): ESV(MOD-sp4): 5.2 cm 46.6 ml LA vol: 53.8 ml EF(MOD-sp4): 56.9 % LA vol index: 18.9 ml/m2 Doppler Measurements Calculations MV dec time: 0.23 sec E/E' lat: MV dec slope: TV max P.0 14.0 mmHg E/E' med: 346.6 cm/sec2 11.4 __ TR max jose: 184.6 cm/sec TR max P.6 mmHg RAP systole: 15.0 mmHg Transcribed By: INEZ 08/22/20 1138 Dictated By: Gautam Bazan MD 08/22/20 1016 Signed By: 08/22/20 1138 Normal [facility] FE PROon 08-22-2020 % Iron Saturation 11.0 % Low 20-50 [facility] Comment on above: Performed By: #### C MP, CBC, MG, TROP, BNP #### [facility] [address] Ferritin [Mass/Vol] 334.8 ng/mL Normal 23.9-336.2 [facility] Comment on above: Result Comment: PERF ORMED BY: [place] [address] PATHOLOGIST TIP PUNCHER JORDAN RODRIGUEZ M.D. Performed By: #### C MP, CBC, MG, TROP, BNP #### [facility] [address] Iron [Mass/Vol] 17 ug/dL Low 40-160 [facility] Comment on above: Performed By: #### C MP, CBC, MG, TROP, BNP #### [facility] [address] Total Iron Binding Capacity 146 ug/dL Low 255-450 [facility] Comment on above: Performed By: #### C MP, CBC, MG, TROP, BNP #### [facility] [address] Transferrin [Mass/Vol] 104 mg/dL Low 180-380 [facility] Comment on above: Performed By: #### C MP, CBC, MG, TROP, BNP #### [facility] [address] [place] [address] Ferritin [Mass/volume] in Se rum or Plasmaon 08-22-2020 Ferritin [Mass/Vol] 334.8 ng/mL 23.9-336.2 [facility] Glucose Poct Glucometerson 0 08-22-2020 Commemt1 Glu2: Cleaned Meter Normal [facility] Comment on above: Result Comment: PERF ORMED BY: [place] [address] PATHOLOGIST TIP PUNCHER JORDAN RODRIGUEZ M.D. Performed By: #### C OVID-19 LIAT SOFIANEG #### [facility] [address] [place] [address] Glucose [Mass/Vol] 81 mg/dL Normal [facility] Comment on above: Result Comment: [place] om Glucose Reference Range is dependent on time and content of last meal. Glucose of more than 200 mg/dL in a nonstressed, ambulatory subject supports the diagnosis of Diabetes Mellitus. Performed By: #### C OVID-19 LIAT, SOFIANEG #### [facility] [address] [place] [address] Glucose [Mass/Vol] 106 mg/dL Normal [facility] Comment on above: Result Comment: [place] om Glucose Reference Range is dependent on time and content of last meal. Glucose of more than 200 mg/dL in a nonstressed, ambulatory subject supports the diagnosis of Diabetes Mellitus. PERFORMED BY: [place] [address] PATHOLOGIST TIP PUNCHER JORDAN RODRIGUEZ M.D. Performed By: #### C OVID-19 LIAT, SOFIANEG #### [facility] [address] [place] [address] [place] Glucose [Mass/Vol] 158 mg/dL Normal [facility] Comment on above: Result Comment: [place] om Glucose Reference Range is dependent on time and content of last meal. Glucose of more than 200 mg/dL in a nonstressed, ambulatory subject supports the diagnosis of Diabetes Mellitus. PERFORMED BY: [place] [address] PATHOLOGIST TIP PUNCHER JORDAN RODRIGUEZ M.D. Performed By: #### C OVID-19 LIAT, SOFIANEG #### [address] Glucose [Mass/Vol] 138 mg/dL Normal [facility] Comment on above: Result Comment: [place] om Glucose Reference Range is dependent on time and content of last meal. Glucose of more than 200 mg/dL in a nonstressed, ambulatory subject supports the diagnosis of Diabetes Mellitus. PERFORMED BY: [place] [address] PATHOLOGIST TIP PUNCHER JORDAN RODRIGUEZ M.D. Performed By: #### C MP, CBC, MG, TROP, BNP #### [place] [address] [place] Glucose [Mass/Vol] 177 mg/dL Normal [facility] Comment on above: Result Comment: [place] om Glucose Reference Range is dependent on time and content of last meal. Glucose of more than 200 mg/dL in a nonstressed, ambulatory subject supports the diagnosis of Diabetes Mellitus. PERFORMED BY: [place] [address] PATHOLOGIST TIP PUNCHER JIANLAN SUN M.D. Performed By: #### C MP, CBC, MG, TROP, BNP #### [facility] [address] [place] [address] [place] Iron [Mass/volume] in Serum or Plasmaon 08-22-2020 Iron [Mass/Vol] 17 ug/dL 40-160 [facility] Iron binding capacity [Mass/ volume] in Serum or Plasmaon 08-22-2020 Iron binding capacity [Mass/Vol] 146 ug/dL 255-450 [facility] Iron saturation [Mass Fracti on] in Serum or Plasmaon 08-22-2020 Iron saturation [Mass fraction] 11.0 % 20-50 [facility] Basic Metabolic Panelon 07-29 Calcium [Mass/Vol] 8.8 mg/dL Normal 8.2-10.2 [facility] Comment on above: Performed By: #### C MP, CBC, MG, TROP, BNP #### [facility] [address] Chloride [Moles/Vol] 95 mmol/L Normal 95-114 [facility] Comment on above: Performed By: #### C MP, CBC, MG, TROP, BNP #### [facility] [address] CO2 [Moles/Vol] 24.4 mmol/L Normal 22.0-30.0 [facility] Comment on above: Performed By: #### C MP, CBC, MG, TROP, BNP #### [facility] [address] Creatinine [Mass/Vol] 4.31 mg/dL High 0.64-1.27 [facility] Comment on above: Performed By: #### C MP, CBC, MG, TROP, BNP #### [facility] [address] [place] [address] [place] Creatinine Clr Calc Pharmacy 30.19 Normal [facility] Comment on above: Result Comment: PERF ORMED BY: [place] [address] PATHOLOGIST TIP PUNCHER JORDAN RODRIGUEZ M.D. Performed By: #### C MP, CBC, MG, TROP, BNP #### [facility] [address] [place] [address] [place] Estimated GFR ( Camilla 17 [facility] Comment on above: Result Comment: GFR estimated reference range: According to KDOQI guidelines, <60 ml/min/1.73m2 is sufficient to diagnose a patient with chronic kidney disease. Performed By: #### C MP, CBC, MG, TROP, BNP #### [facility] [address] [place] [address] [place] Estimated GFR (Non- Am 14 [facility] Comment on above: Performed By: #### C MP, CBC, MG, TROP, BNP #### [facility] [address] Glucose [Mass/Vol] 206 mg/dL High 70-100 [facility] Comment on above: Result Comment: [place] om Glucose Reference Range is dependent on time and content of last meal. Glucose of more than 200 mg/dL in a nonstressed, ambulatory subject supports the diagnosis of Diabetes Mellitus. ADA recommended reference range Performed By: #### C MP, CBC, MG, TROP, BNP #### [facility] [address] Potassium [Moles/Vol] 4.3 mmol/L Normal 3.5-5.1 [facility] Comment on above: Performed By: #### C MP, CBC, MG, TROP, BNP #### [facility] [address] [place] [address] [place] Sodium [Moles/Vol] 131 mmol/L Low 136-146 [facility] Comment on above: Performed By: #### C MP, CBC, MG, TROP, BNP #### [facility] [address] [place] [address] [place] Urea nitrogen [Mass/Vol] 44 mg/dL High 9-23 [facility] Comment on above: Performed By: #### C MP, CBC, MG, TROP, BNP #### [facility] [address] [place] [address] [place] Creatine Kinaseon 08-21-2020 CK [Catalytic activity/Vol] 45 U/L Normal 22-269 [facility] Comment on above: Performed By: #### C MP, CBC, MG, TROP, BNP #### [facility] [address] Creatine kinase [Enzymatic a ctivity/volume] in Serum or Plasmaon 08-21-2020 CK [Catalytic activity/Vol] 45 U/L 22-269 [facility] Creatinine Kinase MBon 08-21 CK.MB [Mass/Vol] 2.3 ng/mL Normal 0.6-6.3 [facility] Comment on above: Performed By: #### C MP, CBC, MG, TROP, BNP #### [facility] [address] CKMB Relative Index 5.1 % High 0.00-2.50 [facility] Comment on above: Performed By: #### C MP, CBC, MG, TROP, BNP #### [facility] [address] ECG 12 lead ECGon 08-21-2020 ECG 12 lead ECG [facility] [place] [address] Electrocardiograph Report Signed Patient: Rashard Lyman MR#: [id number] : 1960 Acct:[id number] Age/Sex: 60 / M ADM Date: 08/18/20 Loc: Room: [address] [place] [address] Type: ADM IN Attending Dr: Eugene Morel DO Ordering Provider: Eugene Morel DO Date of Service: 08/21/20 ECG/ECG 12 lead ECG: chest pain Copies to: Test Reason : Blood Pressure : / mmHG Vent. Rate : 095 BPM Atrial Rate : 095 BPM P-R Int : 186 ms QRS Dur : 104 ms QT Int : 410 ms P-R-T Axes : 065 048 043 degrees QTc Int : 515 ms Lead V5 suboptimal Normal sinus rhythm Diffuse ST elevation may reflect pericarditis Qtc is normal Abnormal ECG When compared with ECG of 21-AUG-2020 09:55, (Unconfirmed) No significant change was found Confirmed by NIR OCHOA DO ([id number]) on 08/21/2020 8:09:21 PM Referred By: LILIAN Electronically Signed By:NIR OCHOA DO Transcribed By: NURIA Dictated By: Nir Ochoa DO 08/21/20 0956 Signed By: 08/21/202008 [facility] ECG 12 lead ECG [facility] Main [place] [id number] Electrocardiograph Report Signed Patient: Rashard Lyman MR#: [id number] : 1960 Acct:[id number] Age/Sex: 60 / M ADM Date: 08/18/20 Loc: 4P Room: [address] [place] [address] Type: ADM IN Attending Dr: Eugene Morel DO Ordering Provider: Enrique Yang MD Date of Service: 08/21/20 ECG/ECG 12 lead ECG: EKG changes Copies to: Test Reason : Blood Pressure : / mmHG Vent. Rate : 096 BPM Atrial Rate : 096 BPM P-R Int : 186 ms QRS Dur : 114 ms QT Int : 372 ms P-R-T Axes : 069 045 054 degrees QTc Int : 469 ms Normal sinus rhythm diffuse ST elevation which may reflect pericarditis , less likley diffuse injury Abnormal ECG When compared with ECG of 21-AUG-2020 06:16, (Unconfirmed) No significant change was found Confirmed by NIR OCHOA DO ([id number]) on 08/21/2020 8:30:42 PM Referred By: Electronically Signed By:NIR OCHOA DO Transcribed By: NURIA Dictated By: Nir Ochoa DO 08/21/20 0828 Signed By: 08/21/202029 [facility] ECG 12 lead ECG [facility] Main [place] [id number] Electrocardiograph Report Signed Patient: Rashard Lyman MR#: [id number] : 1960 Acct:[id number] Age/Sex: 60 / M ADM Date: 08/18/20 Loc: 4 Room: [address] [place] [address] Type: ADM IN Attending Dr: Eugene Morel DO Ordering Provider: Eugene Morel DO Date of Service: 08/21/20 ECG/ECG 12 lead ECG: pt evalulation Copies to: Test Reason : Blood Pressure : / mmHG Vent. Rate : 097 BPM Atrial Rate : 097 BPM P-R Int : 186 ms QRS Dur : 106 ms QT Int : 360 ms P-R-T Axes : 081 071 072 degrees QTc Int : 457 ms Normal sinus rhythm diffuse ST elevation may represent pericarditis - clinical correlation necessary Abnormal ECG When compared with ECG of 18-AUG-2020 15:39, Significant changes have occurred Confirmed by NIR OCHOA DO ([id number]) on 08/21/2020 8:54:41 PM Referred By: Electronically Signed By:NIR OCHOA DO Transcribed By: MUS Dictated By: Nir Ochoa DO 08/21/20615 Signed By: 08/21/202053 Normal [facility] Glucose Poct Glucometerson 0 08-21-2020 Glucose [Mass/Vol] 210 mg/dL [facility] Comment on above: Result Comment: [facility] Glucose Reference Range is dependent on time and content of last meal. Glucose of more than 200 mg/dL in a nonstressed, ambulatory subject supports the diagnosis of Diabetes Mellitus. PERFORMED BY: [place] [address] PATHOLOGIST TIP PUNCHER JORDAN RODRIGUEZ M.D. Performed By: #### C MP, CBC, MG, TROP, BNP #### [facility] [address] [place] [address] Commemt1 Glu2: Cleaned Meter Normal [facility] Comment on above: Result Comment: PERF ORMED BY: [place] [address] PATHOLOGIST TIP PUNCHER JORDAN RODRIGUEZ M.D. Performed By: #### C MP, CBC, MG, TROP, BNP #### [facility] [address] [place], [place] [id number] [facility] Glucose [Mass/Vol] 136 mg/dL Normal [facility] Comment on above: Result Comment: [place] om Glucose Reference Range is dependent on time and content of last meal. Glucose of more than 200 mg/dL in a nonstressed, ambulatory subject supports the diagnosis of Diabetes Mellitus. Performed By: #### C MP, CBC, MG, TROP, BNP #### [address] Commemt1 Glu2: Cleaned Meter [facility] Comment on above: Result Comment: PERF ORMED BY: [place] [address] PATHOLOGIST TIP PUNCHER JORDAN RODRIGUEZ M.D. Performed By: #### C MP, CBC, MG, TROP, BNP #### [address] Glucose [Mass/Vol] 198 mg/dL Normal [facility] Comment on above: Result Comment: [place] om Glucose Reference Range is dependent on time and content of last meal. Glucose of more than 200 mg/dL in a nonstressed, ambulatory subject supports the diagnosis of Diabetes Mellitus. Performed By: #### C MP, CBC, MG, TROP, BNP #### [address] Commemt1 Glu2: Cleaned Meter [facility] Comment on above: Result Comment: PERF ORMED BY: [place] [address] PATHOLOGIST TIP PUNCHER JORDAN RODRIGUEZ M.D. Performed By: #### C MP, CBC, MG, TROP, BNP #### [place] [address] [place] Glucose [Mass/Vol] 221 mg/dL Normal [facility] Comment on above: Result Comment: [place] om Glucose Reference Range is dependent on time and content of last meal. Glucose of more than 200 mg/dL in a nonstressed, ambulatory subject supports the diagnosis of Diabetes Mellitus. Performed By: #### C MP, CBC, MG, TROP, BNP #### [address] Glucose [Mass/Vol] 210 mg/dL Normal [facility] Comment on above: Result Comment: [facility] Glucose Reference Range is dependent on time and content of last meal. Glucose of more than 200 mg/dL in a nonstressed, ambulatory subject supports the diagnosis of Diabetes Mellitus. PERFORMED BY: [place] [address] PATHOLOGIST TIP PUNCHER JORDAN RODRIGUEZ M.D. Performed By: #### C MP, CBC, MG, TROP, BNP #### [address] No Panel Informationon 08-21 Dohle Bodies Slight [facility] Scan and CBCon 08-21-2020 Anisocytosis Ql (Bld) Slight Normal [facility] Comment on above: Performed By: #### C MP, CBC, MG, TROP, BNP #### [address] Basophils (Bld) [#/Vol] 0.0 10*3/uL Normal 0.0-0.2 [facility] Comment on above: Performed By: #### C MP, CBC, MG, TROP, BNP #### [address] Basophils/100 WBC (Bld) 0.3 % Normal . [facility] Comment on above: Performed By: #### C MP, CBC, MG, TROP, BNP #### [facility] [address] [place] [address] Dohle Bodies Slight Normal [facility] Comment on above: Performed By: #### C MP, CBC, MG, TROP, BNP #### [facility] [address] [place] [address] Eosinophils (Bld) [#/Vol] 0.5 10*3/uL High 0.0-0.45 [facility] Comment on above: Performed By: #### C MP, CBC, MG, TROP, BNP #### [facility] [address] [place] [address] Eosinophils/100 WBC (Bld) 3.2 % Normal . [facility] Comment on above: Performed By: #### C MP, CBC, MG, TROP, BNP #### [address] Erythrocyte distribution width (RBC) [Ratio] 16.6 % High 12.0-14.8 [facility] Comment on above: Performed By: #### C MP, CBC, MG, TROP, BNP #### [address] Hematocrit (Bld) [Volume fraction] 31.8 % Low 38.8-50.0 [facility] Comment on above: Performed By: #### C MP, CBC, MG, TROP, BNP #### [address] Hemoglobin (Bld) [Mass/Vol] 10.3 g/dL Low 13.0-17.0 [facility] Comment on above: Performed By: #### C MP, CBC, MG, TROP, BNP #### [address] Lymphocytes (Bld) [#/Vol] 1.2 10*3/uL Normal 1.00-4.8 [facility] Comment on above: Performed By: #### C MP, CBC, MG, TROP, BNP #### [address] Lymphocytes/100 WBC (Bld) 8.1 % Normal . [facility] Comment on above: Performed By: #### C MP, CBC, MG, TROP, BNP #### [address] MCH (RBC) [Entitic mass] 26.8 pg Low 27.5-35.2 [facility] Comment on above: Performed By: #### C MP, CBC, MG, TROP, BNP #### [address] MCV (RBC) [Entitic vol] 83.1 fL Low 83.5-101 [facility] Comment on above: Performed By: #### C MP, CBC, MG, TROP, BNP #### [address] Mean Corpuscular HGB Conc 32.3 g/dL Low 32.5-35.6 [facility] Comment on above: Performed By: #### C MP, CBC, MG, TROP, BNP #### [address] Monocytes (Bld) [#/Vol] 1.7 10*3/uL High 0.0-0.8 [facility] Comment on above: Performed By: #### C MP, CBC, MG, TROP, BNP #### [address] Monocytes/100 WBC (Bld) 11.4 % Normal . [facility] Comment on above: Performed By: #### C MP, CBC, MG, TROP, BNP #### [address] Neutrophils (Bld) [#/Vol] 11.2 10*3/uL High 1.8-7.7 [facility] Comment on above: Performed By: #### C MP, CBC, MG, TROP, BNP #### [address] Neutrophils/100 WBC (Bld) 77.0 % Normal . [facility] Comment on above: Performed By: #### C MP, CBC, MG, TROP, BNP #### [address] Nucleated RBC/100 WBC (Bld) [Ratio] 0.1 % Normal 0-0.5 [facility] Comment on above: Performed By: #### C MP, CBC, MG, TROP, BNP #### [address] Platelet Estimate Normal Normal Normal [facility] Comment on above: Performed By: #### C MP, CBC, MG, TROP, BNP #### [address] Platelet mean volume (Bld) [Entitic vol] 7.8 fL Normal 6.6-10.1 [facility] Comment on above: Performed By: #### C MP, CBC, MG, TROP, BNP #### [address] Platelet Morphology Normal Normal Normal [facility] Comment on above: Result Comment: PERF ORMED BY: [place] [address] PATHOLOGIST TIP PUNCHER JORDAN RODRIGUEZ M.D. Performed By: #### C MP, CBC, MG, TROP, BNP #### [address] Platelets (Bld) [#/Vol] 265 10*3/uL Normal 150-450 [facility] Comment on above: Performed By: #### C MP, CBC, MG, TROP, BNP #### [address] RBC (Bld) [#/Vol] 3.83 10*6/uL Low 3.90-5.60 [facility] Comment on above: Performed By: #### C MP, CBC, MG, TROP, BNP #### [address] WBC (Bld) [#/Vol] 14.6 10*3/uL High 4.5-11.0 [facility] Comment on above: Performed By: #### C MP, CBC, MG, TROP, BNP #### [address] Serum or plasma cardiac trop onin I measurement (mass/volume)on 08-21-2020 Troponin I.cardiac [Mass/Vol] ng/mL 0-0.02 [facility] Comment on above: HÉCTOR NM Cut off value > or equal to 0.03 ng/mL in conjunction with clinical conditions of myocardial infarction.(www.escardio.org/guidelines) Serum or plasma creatine kin ase MB (CKMB)/total creatine kinase (CK) ratio by calculaon 08-21-2020 CK.MB Calc [Catalytic fraction] 5.1 % 0.00-2.50 [facility] Serum or plasma creatine kin ase MB measurement (mass/volume)on 08-21-2020 CK.MB [Mass/Vol] 2.3 ng/mL 0.6-6.3 [facility] Troponin I(TnI)on 08-21-2020 Troponin I.cardiac [Mass/Vol] ng/mL Normal 0-0.02 [facility] Comment on above: Result Comment: HÉCTOR NM Cut off value > or equal to 0.03 ng/mL in conjunction with clinical conditions of myocardial infarction. (www.escardio.org/guidelines) PERFORMED BY: [place] [address] PATHOLOGIST TIP PUNCHER JORDAN RODRIGUEZ M.D. Performed By: #### C MP, CBC, MG, TROP, BNP #### [address] Troponin I.cardiac [Mass/Vol] ng/mL Normal 0-0.02 [facility] Comment on above: Result Comment: HÉCTOR NM Cut off value > or equal to 0.03 ng/mL in conjunction with clinical conditions of myocardial infarction. (www.escardio.org/guidelines) PERFORMED BY: [place] [address] PATHOLOGIST TIP PUNCHER JORDAN RODRIGUEZ M.D. Performed By: #### C MP, CBC, MG, TROP, BNP #### [address] Basic Metabolic Panelon 07-29 Calcium [Mass/Vol] 8.4 mg/dL Normal 8.2-10.2 [facility] Comment on above: Performed By: #### C MP, CBC, MG, TROP, BNP #### [address] Chloride [Moles/Vol] 99 mmol/L Normal 95-114 [facility] Comment on above: Performed By: #### C MP, CBC, MG, TROP, BNP #### [address] CO2 [Moles/Vol] 25.0 mmol/L Normal 22.0-30.0 [facility] Comment on above: Performed By: #### C MP, CBC, MG, TROP, BNP #### [facility] [address] Creatinine [Mass/Vol] 3.26 mg/dL High 0.64-1.27 [facility] Comment on above: Performed By: #### C MP, CBC, MG, TROP, BNP #### [address] Creatinine Clr Calc Pharmacy 39.92 [facility] Comment on above: Result Comment: PERF ORMED BY: [place] [address] PATHOLOGIST TIP PUNCHER JORDAN RODRIGUEZ M.D. Performed By: #### C MP, CBC, MG, TROP, BNP #### [address] Estimated GFR ( Camilla 24 [facility] Comment on above: Result Comment: GFR estimated reference range: According to KDOQI guidelines, <60 ml/min/1.73m2 is sufficient to diagnose a patient with chronic kidney disease. Performed By: #### C MP, CBC, MG, TROP, BNP #### [address] Estimated GFR (Non- Am 19 [facility] Comment on above: Performed By: #### C MP, CBC, MG, TROP, BNP #### [address] Glucose [Mass/Vol] 205 mg/dL High 70-100 [facility] Comment on above: Result Comment: [place] Glucose Reference Range is dependent on time and content of last meal. Glucose of more than 200 mg/dL in a nonstressed, ambulatory subject supports the diagnosis of Diabetes Mellitus. ADA recommended reference range Performed By: #### C MP, CBC, MG, TROP, BNP #### [address] Potassium [Moles/Vol] 3.5 mmol/L Normal 3.5-5.1 [facility] Comment on above: Performed By: #### C MP, CBC, MG, TROP, BNP #### [facility] [address] Sodium [Moles/Vol] 131 mmol/L Low 136-146 [facility] Comment on above: Performed By: #### C MP, CBC, MG, TROP, BNP #### [facility] [address] Urea nitrogen [Mass/Vol] 35 mg/dL High 9- [facility] Comment on above: Performed By: #### C MP, CBC, MG, TROP, BNP #### [facility] [address] C-Reactive Proteinon 021 C-Reactive Protein 19.4 mg/dL High 0.0-1.0 [facility] Comment on above: Result Comment: PERF ORMED BY: [place] [address] PATHOLOGIST TIP PUNCHER JORDAN RODRIGUEZ M.D. Performed By: #### C MP, CBC, MG, TROP, BNP #### [address] Erythrocyte Sedimentation Ra donato 08-20-2020 ESR (Bld) [Velocity] 108 mm/h High [facility] Comment on above: Result Comment: PERF ORMED BY: [place] [address] PATHOLOGIST TIP PUNCHER JORDAN RODRIGUEZ M.D. Performed By: #### C MP, CBC, MG, TROP, BNP #### [facility] [address] Erythrocyte sedimentation ra te by Photometric methodon 08-20-2020 ESR Photometric method (Bld) [Velocity] 108 mm/hr [facility] Glucose Poct Glucometerson 0 08-20-2020 Glucose [Mass/Vol] 195 mg/dL Normal [facility] Comment on above: Result Comment: [place] Glucose Reference Range is dependent on time and content of last meal. Glucose of more than 200 mg/dL in a nonstressed, ambulatory subject supports the diagnosis of Diabetes Mellitus. PERFORMED BY: [place] [address] PATHOLOGIST TIP PUNCHER JORDAN RODRIGUEZ M.D. Performed By: #### C MP, CBC, MG, TROP, BNP #### [facility] [address] [place] [address] Glucose [Mass/Vol] 171 mg/dL Normal [facility] Comment on above: Result Comment: [place] om Glucose Reference Range is dependent on time and content of last meal. Glucose of more than 200 mg/dL in a nonstressed, ambulatory subject supports the diagnosis of Diabetes Mellitus. PERFORMED BY: [place] [address] PATHOLOGIST TIP PUNCHER JORDAN RODRIGUEZ M.D. Performed By: #### C MP, CBC, MG, TROP, BNP #### [address] Glucose [Mass/Vol] 246 mg/dL Normal [facility] Comment on above: Result Comment: [place] om Glucose Reference Range is dependent on time and content of last meal. Glucose of more than 200 mg/dL in a nonstressed, ambulatory subject supports the diagnosis of Diabetes Mellitus. PERFORMED BY: [place] [address] PATHOLOGIST TIP PUNCHER JORDAN RODRIGUEZ M.D. Performed By: #### C MP, CBC, MG, TROP, BNP #### [address] Glucose [Mass/Vol] 274 mg/dL Normal [facility] Comment on above: Result Comment: [place] om Glucose Reference Range is dependent on time and content of last meal. Glucose of more than 200 mg/dL in a nonstressed, ambulatory subject supports the diagnosis of Diabetes Mellitus. PERFORMED BY: [place] [address] PATHOLOGIST TIP PUNCHER JORDAN RODRIGUEZ M.D. Performed By: #### C MP, CBC, MG, TROP, BNP #### [address] [place] [address] [facility] Glucose [Mass/Vol] 221 mg/dL Normal [facility] Comment on above: Result Comment: [facility] Glucose Reference Range is dependent on time and content of last meal. Glucose of more than 200 mg/dL in a nonstressed, ambulatory subject supports the diagnosis of Diabetes Mellitus. PERFORMED BY: [place] [address] PATHOLOGIST TIP PUNCHER JORDAN RODRIGUEZ M.D. Performed By: #### C MP, CBC, MG, TROP, BNP #### [facility] [address] [place] [address] MR thoracic spine wo conon 0 08-20-2020 MR thoracic spine wo con [facility] Main [place] [address] [place] [address] MRI Report Signed Patient: Rashard Lyman MR#: [id number] : 1960 Acct:[id number] Age/Sex: 60 / M ADM Date: 08/18/20 Loc: Room: [address] [place] [address] Type: ADM IN Attending Dr: Eugene Morel DO Ordering Provider: Eugene Morel DO Date of Service: 08/20/20 MR/MR thoracic spine wo con: left rib cage pain, arises from about T 5-8 level Copies to: Eugene Morel DO MRI THORACIC SPINE WITHOUT CONTRAST CLINICAL DATA: Shortness of breath and atypical chest pain for a few days extending to the left ribs. COMPARISON: CT 08/19/2020 Alignment is maintained on the sagittal sequences. No acute compression fractures or marrow edema are seen. There are some Schmorl's nodes and endplate spurring. There is incomplete segmentation at T1-2. At the cervicothoracic junction, there is a small left parasagittal protrusion with mild thecal sac effacement and left foraminal encroachment. There is minor disco-osteophytic bulging at some of the thoracic levels, without significant associated central or foraminal stenosis. No focal disc herniations are seen. 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 The thoracic cord is within normal limits for caliber and signal throughout its imaged course. No paraspinal soft tissue abnormalities are noted. A left pleural effusion is again noted. MR/MR thoracic spine wo con IMPRESSION: NO ACUTE COMPRESSION FRACTURES. NO SIGNIFICANT DISC DISEASE OR STENOSIS. Impression dictated by: Chitra Brantley M.D.08/20/2020 6:27 PM Dictation Location: [place] [address] Transcribed By: [facility] 08/20/201826 Dictated By: Chitra Brantley MD 08/20/201816 Signed By: 08/20/201826 Normal [facility] Scan and CBCon 08-20-2020 Anisocytosis Ql (Bld) Slight Normal [facility] Comment on above: Performed By: #### C MP, CBC, MG, TROP, BNP #### [address] Basophils (Bld) [#/Vol] 0.0 10*3/uL Normal 0.0-0.2 [facility] Comment on above: Performed By: #### C MP, CBC, MG, TROP, BNP #### [place] [address] [place] Basophils/100 WBC (Bld) 0.3 % Normal . [facility] Comment on above: Performed By: #### C MP, CBC, MG, TROP, BNP #### [place] [address] [place] Dohle Bodies Slight Normal [facility] Comment on above: Performed By: #### C MP, CBC, MG, TROP, BNP #### [place] [address] [place] Eosinophils (Bld) [#/Vol] 0.5 10*3/uL High 0.0-0.45 [facility] Comment on above: Performed By: #### C MP, CBC, MG, TROP, BNP #### [place] [address] [place] Eosinophils/100 WBC (Bld) 3.8 % Normal . [facility] Comment on above: Performed By: #### C MP, CBC, MG, TROP, BNP #### [address] Erythrocyte distribution width (RBC) [Ratio] 16.2 % High 12.0-14.8 [facility] Comment on above: Performed By: #### C MP, CBC, MG, TROP, BNP #### [address] Hematocrit (Bld) [Volume fraction] 32.1 % Low 38.8-50.0 [facility] Comment on above: Performed By: #### C MP, CBC, MG, TROP, BNP #### [address] Hemoglobin (Bld) [Mass/Vol] 10.4 g/dL Low 13.0-17.0 [facility] Comment on above: Performed By: #### C MP, CBC, MG, TROP, BNP #### [address] Lymphocytes (Bld) [#/Vol] 1.5 10*3/uL Normal 1.00-4.8 [facility] Comment on above: Performed By: #### C MP, CBC, MG, TROP, BNP #### [address] Lymphocytes/100 WBC (Bld) 11.0 % Normal . [facility] Comment on above: Performed By: #### C MP, CBC, MG, TROP, BNP #### [address] MCH (RBC) [Entitic mass] 26.7 pg Low 27.5-35.2 [facility] Comment on above: Performed By: #### C MP, CBC, MG, TROP, BNP #### [address] MCV (RBC) [Entitic vol] 82.2 fL Low 83.5-101 [facility] Comment on above: Performed By: #### C MP, CBC, MG, TROP, BNP #### [address] [place] [address] [place] Mean Corpuscular HGB Conc 32.5 g/dL Normal 32.5-35.6 [facility] Comment on above: Performed By: #### C MP, CBC, MG, TROP, BNP #### [address] Monocytes (Bld) [#/Vol] 1.7 10*3/uL High 0.0-0.8 [facility] Comment on above: Performed By: #### C MP, CBC, MG, TROP, BNP #### [address] Monocytes/100 WBC (Bld) 12.5 % Normal . [facility] Comment on above: Performed By: #### C MP, CBC, MG, TROP, BNP #### [address] Neutrophils (Bld) [#/Vol] 9.7 10*3/uL High 1.8-7.7 [facility] Comment on above: Performed By: #### C MP, CBC, MG, TROP, BNP #### [address] Neutrophils/100 WBC (Bld) 72.4 % Normal . [facility] Comment on above: Performed By: #### C MP, CBC, MG, TROP, BNP #### [address] Nucleated RBC/100 WBC (Bld) [Ratio] 0.0 % Normal 0-0.5 [facility] Comment on above: Performed By: #### C MP, CBC, MG, TROP, BNP #### [address] Platelet Estimate Normal Normal Normal [facility] Comment on above: Performed By: #### C MP, CBC, MG, TROP, BNP #### [address] Platelet mean volume (Bld) [Entitic vol] 7.7 fL Normal 6.6-10.1 [facility] Comment on above: Performed By: #### C MP, CBC, MG, TROP, BNP #### [address] Platelet Morphology Normal Normal Normal [facility] Comment on above: Performed By: #### C MP, CBC, MG, TROP, BNP #### [address] Platelets (Bld) [#/Vol] 253 10*3/uL Normal 150-450 [facility] Comment on above: Performed By: #### C MP, CBC, MG, TROP, BNP #### [address] RBC (Bld) [#/Vol] 3.90 10*6/uL Normal 3.90-5.60 [facility] Comment on above: Performed By: #### C MP, CBC, MG, TROP, BNP #### [address] WBC (Bld) [#/Vol] 13.4 10*3/uL High 4.5-11.0 [facility] Comment on above: Performed By: #### C MP, CBC, MG, TROP, BNP #### [address] Serum or plasma C reactive p rotein measurement (mass/volume)on 08-20-2020 CRP [Mass/Vol] 19.4 mg/dL 0.0-1.0 [facility] A1C with Estimated Average G luon 08-19-2020 Glucose [Mass/Vol] 298 mg/dL Normal [facility] Comment on above: Result Comment: PERF ORMED BY: [place] [address] PATHOLOGIST TIP PUNCHER JORDAN RODRIGUEZ M.D. Performed By: #### C MP, CBC, MG, TROP, BNP #### [address] HbA1c (Bld) [Mass fraction] 12.0 % High 4.3-5.6 [facility] Comment on above: Result Comment: Incr eased risk for diabetes: 5.7 - 6.4 diabetes: >6.4 glycemic control for adults with diabetes: <7.0 Performed By: #### C MP, CBC, MG, TROP, BNP #### [address] ABO and Rh group post transf usion reaction Nom (Bld)on 08-19-2020 Microscopic observation Gram stain Nom (Unsp spec) [facility] Aerobic Cultureon 08-19-2020 Aerobic Culture Light Normal Respira tory Edith 2 Days Gram Stain Result 2+ White Blood Cells 1+ Epithelial Cells 1+ Gram Positive Cocci PERFORMED BY: [place] [address] PATHOLOGIST TIP PUNCHER JORDAN RODRIGUEZ M.D. [facility] Comment on above: Performed By: #### C MP, CBC, MG, TROP, BNP #### [address] Basic Metabolic Panelon 07-29 Calcium [Mass/Vol] 8.4 mg/dL Normal 8.2-10.2 [facility] Comment on above: Performed By: #### C MP, CBC, MG, TROP, BNP #### [address] Chloride [Moles/Vol] 98 mmol/L Normal 95-114 [facility] Comment on above: Performed By: #### C MP, CBC, MG, TROP, BNP #### [address] CO2 [Moles/Vol] 25.3 mmol/L Normal 22.0-30.0 [facility] Comment on above: Performed By: #### C MP, CBC, MG, TROP, BNP #### [address] Creatinine [Mass/Vol] 3.04 mg/dL High 0.64-1.27 [facility] Comment on above: Performed By: #### C MP, CBC, MG, TROP, BNP #### [address] [place] [address] [place] Creatinine Clr Calc Pharmacy 42.91 [facility] Comment on above: Performed By: #### C MP, CBC, MG, TROP, BNP #### [facility] [address] Estimated GFR ( Camilla 26 [facility] Comment on above: Result Comment: GFR estimated reference range: According to KDOQI guidelines, <60 ml/min/1.73m2 is sufficient to diagnose a patient with chronic kidney disease. Performed By: #### C MP, CBC, MG, TROP, BNP #### [facility] [address] Estimated GFR (Non- Am 21 [facility] Comment on above: Performed By: #### C MP, CBC, MG, TROP, BNP #### [address] Glucose [Mass/Vol] 328 mg/dL High 70-100 [facility] Comment on above: Result Comment: [place] om Glucose Reference Range is dependent on time and content of last meal. Glucose of more than 200 mg/dL in a nonstressed, ambulatory subject supports the diagnosis of Diabetes Mellitus. ADA recommended reference range Performed By: #### C MP, CBC, MG, TROP, BNP #### [address] Potassium [Moles/Vol] 3.4 mmol/L Low 3.5-5.1 [facility] Comment on above: Performed By: #### C MP, CBC, MG, TROP, BNP #### [place] [address] [place] Sodium [Moles/Vol] 131 mmol/L Low 136-146 [facility] Comment on above: Performed By: #### C MP, CBC, MG, TROP, BNP #### [address] Urea nitrogen [Mass/Vol] 30 mg/dL High 9-23 [facility] Comment on above: Performed By: #### C MP, CBC, MG, TROP, BNP #### [facility] [address] [place] [id number] [facility] CT abdomen pelvis wo conon 0 08-19-2020 CT abdomen pelvis wo con [facility] Main [place] [address] [place] [id number] Scan Report Signed Patient: Rashard Lyman MR#: [id number] : 1960 Acct:[id number] Age/Sex: 60 / M ADM Date: 08/18/20 Loc: Room: [address] [place] [address] Type: ADM IN Attending Dr: Eugene Morel DO Ordering Provider: Eugene Morel DO Date of Service: 08/19/20 CT/CT abdomen pelvis wo con: left sided pain ([id number]) CT/CT chest wo con: left lung base abnormality Copies to: Eugene Morel DO CT chest wo con, CT abdomen pelvis wo con 08/19/2020 3:34 PM SIGN AND SYMPTOMS: Left abdominal pain, cough, aspiration, abnormality at left lung base on prior CT TECHNIQUE: Multidetector CT axial slices of the chest, abdomen and pelvis were obtainedwithout IV contrast. Multiplanar reformats were performed and viewed on a separate workstation and reviewed to further define anatomy and possible pathology. CT was performed with one or more of the following dose reduction techniques: Automated exposure control, adjustment of the mA and/or kV according to patient size, or use of iterative reconstruction technique. COMPARISON: None. FINDINGS: Lower neck: Thyroid gland within normal limits, no supraclavicle adenopathy. Vessels: Atherosclerotic changes are noted in the thoracic aorta and coronary arteries.. Mediastinum and Odalys: There is a calcified right hilar lymph node. Nonspecific mediastinal lymph nodes are noted Heart: Normal size. There is a small pericardial effusion.. Airways: Within normal limits Lungs: There is dependent consolidation at the left lung base. There is a calcified 8 mm granuloma at the right lung base. There is mild dependent atelectasis in the right posterior costophrenic sulcus. Pleura: There is a small left-sided pleural effusion. Chest Wall: Within normal limits. Abdomen: Liver: within normal limits. Bile Ducts: Normal caliber. Gallbladder: Previously removed. Pancreas: within normal limits. Spleen: within normal limits. Adrenals: within normal limits. Kidneys: within normal limits. Pelvis: Reproductive Organs: No pelvic masses. Ureters: within normal limits. Bladder: within normal limits. Bowel: Normal caliber. Mesenteric Lymph Nodes: No enlarged mesenteric lymph nodes. Peritoneum: No ascites or free air, no fluid collection. Vessels: Atherosclerotic changes are noted in the abdominal aorta and its branches.. Retroperitoneum: within normal limits. Abdominal Wall: within normal limits. Bones: Degenerative changes are noted in the thoracolumbar spine, hips, and sacroiliac joints. CT/CT chest wo con IMPRESSION: There is dependent consolidation at the left lung base with a left sided pleural effusion. There is a small pericardial effusion.. There is a calcified 8 mm granuloma at the right lung base. There is no evidence of bowel obstruction or obstructive uropathy. No free fluid or free air. The gallbladder has been previously removed. Impression dictated by: Hector Mckinney M.D.08/19/2020 8:01 PM Dictation Location: [place] [address] Transcribed By: [facility] 08/19/202000 Dictated By: Hector Mckinney II, MD 08/19/201947 Signed By: 08/19/202000 Normal [facility] Glucose Poct Glucometerson 0 08-19-2020 Glucose [Mass/Vol] 266 mg/dL Normal [facility] Comment on above: Result Comment: [facility] Glucose Reference Range is dependent on time and content of last meal. Glucose of more than 200 mg/dL in a nonstressed, ambulatory subject supports the diagnosis of Diabetes Mellitus. PERFORMED BY: [place] [address] PATHOLOGIST TIP PUNCHER JORDAN RODRIGUEZ M.D. Performed By: #### C MP, CBC, MG, TROP, BNP #### [address] Glucose [Mass/Vol] 349 mg/dL Normal [facility] Comment on above: Result Comment: [facility] Glucose Reference Range is dependent on time and content of last meal. Glucose of more than 200 mg/dL in a nonstressed, ambulatory subject supports the diagnosis of Diabetes Mellitus. PERFORMED BY: [facility] [address] [place] [address] PATHOLOGIST TIP PUNCHER JORDAN RODRIGUEZ M.D. Performed By: #### C MP, CBC, MG, TROP, BNP #### [address] Glucose [Mass/Vol] 258 mg/dL Normal [facility] Comment on above: Result Comment: [place] om Glucose Reference Range is dependent on time and content of last meal. Glucose of more than 200 mg/dL in a nonstressed, ambulatory subject supports the diagnosis of Diabetes Mellitus. PERFORMED BY: [place] [address] PATHOLOGIST TIP PUNCHER JORDAN RODRIGUEZ M.D. Performed By: #### C MP, CBC, MG, TROP, BNP #### [address] Glucose [Mass/Vol] 292 mg/dL Normal [facility] Comment on above: Result Comment: [place] om Glucose Reference Range is dependent on time and content of last meal. Glucose of more than 200 mg/dL in a nonstressed, ambulatory subject supports the diagnosis of Diabetes Mellitus. PERFORMED BY: [place] [address] PATHOLOGIST TIP PUNCHER JORDAN RODRIGUEZ M.D. Performed By: #### C MP, CBC, MG, TROP, BNP #### [facility] [address] [place] [address] [place] Commemt1 Glu2: Cleaned Meter Normal [facility] Comment on above: Result Comment: PERF ORMED BY: [place] [address] PATHOLOGIST TIP PUNCHER JORDAN RODRIGUEZ M.D. Performed By: #### C MP, CBC, MG, TROP, BNP #### [address] Glucose [Mass/Vol] 350 mg/dL Normal [facility] Comment on above: Result Comment: [place] om Glucose Reference Range is dependent on time and content of last meal. Glucose of more than 200 mg/dL in a nonstressed, ambulatory subject supports the diagnosis of Diabetes Mellitus. Performed By: #### C MP, CBC, MG, TROP, BNP #### [address] Glucose mean value [Mass/vol ume] in Blood Estimated from glycated hemoglobinon 08-19-2020 Average glucose Estimated from glycated hemoglobin (Bld) [Mass/Vol] 298 mg/dL [facility] Gram Stainon 08-19-2020 Microscopic observation Gram stain Nom (Unsp spec) Gram Stain Result 2+ White Blood Cells 1+ Epithelial Cells 1+ Gram Positive Cocci PERFORMED BY: [place] [address] PATHOLOGIST TIP PUNCHER JORDAN RODRIGUEZ M.D. Normal [facility] Comment on above: Performed By: #### C MP, CBC, MG, TROP, BNP #### [address] Hemoglobin A1c percentageon 08-19-2020 HbA1c (Bld) [Mass fraction] 12.0 % 4.3-5.6 [facility] Comment on above: Increased risk for d iabetes: 5.7 - 6.4diabetes: >6.4glycemic control for adults with diabetes: <7.0 Laboratory - Chemistry and C hemistry - challengeon 08-19-2020 Magnesium [Mass/Vol] 2.0 mg/dL 1.6-2.6 [facility] Magnesiumon 08-19-2020 Magnesium [Mass/Vol] 2.0 mg/dL Normal 1.6-2.6 [facility] Comment on above: Performed By: #### C MP, CBC, MG, TROP, BNP #### [address] No Panel Informationon 08-19 25-Hydroxy Vitamin D Total 24.6 ng/mL 30-100 [facility] Comment on above: VITAMIN D STATUS 25( [place])VITAMIN D RANGE (ng/mL) Deficient <20 Insufficient 20 to <30Sufficient 30 to 100Reference: Aki MF,Oriana [place], Elli JONAS, et al. Evaluation,treatment, and prevention of vitamin D deficiency; an Endocrine Society clinical practice guideline. JCEM. 2010; 96(7):1911-30. Scan and CBCon 08-19-2020 Anisocytosis Ql (Bld) Slight Normal [facility] Comment on above: Performed By: #### C MP, CBC, MG, TROP, BNP #### [address] Basophils (Bld) [#/Vol] 0.1 10*3/uL Normal 0.0-0.2 [facility] Comment on above: Performed By: #### C MP, CBC, MG, TROP, BNP #### [address] Basophils/100 WBC (Bld) 0.8 % Normal . [facility] Comment on above: Performed By: #### C MP, CBC, MG, TROP, BNP #### [address] Eosinophils (Bld) [#/Vol] 0.4 10*3/uL Normal 0.0-0.45 [facility] Comment on above: Performed By: #### C MP, CBC, MG, TROP, BNP #### [address] Eosinophils/100 WBC (Bld) 2.8 % Normal . [facility] Comment on above: Performed By: #### C MP, CBC, MG, TROP, BNP #### [address] Erythrocyte distribution width (RBC) [Ratio] 16.0 % High 12.0-14.8 [facility] Comment on above: Performed By: #### C MP, CBC, MG, TROP, BNP #### [address] Hematocrit (Bld) [Volume fraction] 32.4 % Low 38.8-50.0 [facility] Comment on above: Performed By: #### C MP, CBC, MG, TROP, BNP #### [address] Hemoglobin (Bld) [Mass/Vol] 10.5 g/dL Low 13.0-17.0 [facility] Comment on above: Performed By: #### C MP, CBC, MG, TROP, BNP #### [address] Lymphocytes (Bld) [#/Vol] 1.6 10*3/uL Normal 1.00-4.8 [facility] Comment on above: Performed By: #### C MP, CBC, MG, TROP, BNP #### [address] Lymphocytes/100 WBC (Bld) 11.4 % Normal . [facility] Comment on above: Performed By: #### C MP, CBC, MG, TROP, BNP #### [address] MCH (RBC) [Entitic mass] 26.6 pg Low 27.5-35.2 [facility] Comment on above: Performed By: #### C MP, CBC, MG, TROP, BNP #### [address] MCV (RBC) [Entitic vol] 82.4 fL Low 83.5-101 [facility] Comment on above: Performed By: #### C MP, CBC, MG, TROP, BNP #### [address] Mean Corpuscular HGB Conc 32.3 g/dL Low 32.5-35.6 [facility] Comment on above: Performed By: #### C MP, CBC, MG, TROP, BNP #### [address] Monocytes (Bld) [#/Vol] 1.6 10*3/uL High 0.0-0.8 [facility] Comment on above: Performed By: #### C MP, CBC, MG, TROP, BNP #### [address] Monocytes/100 WBC (Bld) 11.7 % Normal . [facility] Comment on above: Performed By: #### C MP, CBC, MG, TROP, BNP #### [address] Neutrophils (Bld) [#/Vol] 10.2 10*3/uL High 1.8-7.7 [facility] Comment on above: Performed By: #### C MP, CBC, MG, TROP, BNP #### [address] Neutrophils/100 WBC (Bld) 73.3 % Normal . [facility] Comment on above: Performed By: #### C MP, CBC, MG, TROP, BNP #### [address] Nucleated RBC/100 WBC (Bld) [Ratio] 0.0 % Normal 0-0.5 [facility] Comment on above: Performed By: #### C MP, CBC, MG, TROP, BNP #### [address] Platelet Estimate Normal Normal Normal [facility] Comment on above: Performed By: #### C MP, CBC, MG, TROP, BNP #### [address] Platelet mean volume (Bld) [Entitic vol] 7.5 fL Normal 6.6-10.1 [facility] Comment on above: Performed By: #### C MP, CBC, MG, TROP, BNP #### [address] Platelet Morphology Normal Normal Normal [facility] Comment on above: Result Comment: PERF ORMED BY: [place] [address] PATHOLOGIST TIP PUNCHER JORDAN RODRIGUEZ M.D. Performed By: #### C MP, CBC, MG, TROP, BNP #### [address] Platelets (Bld) [#/Vol] 249 10*3/uL Normal 150-450 [facility] Comment on above: Performed By: #### C MP, CBC, MG, TROP, BNP #### [facility] [address] RBC (Bld) [#/Vol] 3.93 10*6/uL Normal 3.90-5.60 [facility] Comment on above: Performed By: #### C MP, CBC, MG, TROP, BNP #### [address] WBC (Bld) [#/Vol] 14.0 10*3/uL High 4.5-11.0 [facility] Comment on above: Performed By: #### C MP, CBC, MG, TROP, BNP #### [address] US renal BIon 08-19-2020 US renal BI [facility] Main [place] [address] [place] [address] Ultrasound Report Signed Patient: Rashard Lyman MR#: [id number] : 1960 Acct:[id number] Age/Sex: 60 / M ADM Date: 08/18/20 Loc: Room: [address] [place] [address] Type: ADM IN Attending Dr: Eugene Morel DO Ordering Provider: Eugene Morel DO Date of Service: 08/19/20 US/US renal BI: chronic kidney disease, left flank pain Copies to: Eugene Morel DO US renal BI 08/19/2020 3:34 PM SIGNS AND SYMPTOMS: chronic kidney disease, left flank pain COMPARISON: Ultrasound 12/31/2018. FINDINGS: Right kidney measures 11.1 cm x 5.05 cm x 6.61 cm . There is no hydronephrosis or mass. Left kidney measures 11.32 cm x 5.57 cm x 5.61 cm . There is an anechoic cyst at the superior pole on the left. This measures 7 x 8 x 7 mm in greatest dimension. There is no hydronephrosis or mass. No free fluid is seen in the pelvis. The bladder is not visualized. US/US renal BI IMPRESSION: No hydronephrosis or mass. There is a simple cyst at the superior pole on the left. Impression dictated by: Hector Mckinney M.D.08/19/2020 6:09 PM Dictation Location: [place] [address] Tech: Sandra Sierra Transcribed By: [facility] 08/19/201808 Dictated By: Hector Mckinney II, MD 08/19/201807 Signed By: 08/19/201808 Normal [facility] Vitamin D 25 Hydroxy Totalon 08-19-2020 Vitamin D 25 Hydroxy Total 24.6 ng/mL Low 30-100 [facility] Comment on above: Result Comment: ADA MIN D STATUS 25([place])VITAMIN D RANGE (ng/mL) Deficient <20 Insufficient 20 to <30 Sufficient 30 to 100 Reference: Aki MF,[place] NC, Elli JONAS, et al. Evaluation,treatment, and prevention of vitamin D deficiency; an Endocrine Society clinical practice guideline. JCEM. 2010; 96(7):1911-30. PERFORMED BY: [place] [address] PATHOLOGIST TIP PUNCHER JORDAN RODRIGUEZ M.D. Performed By: #### C MP, CBC, MG, TROP, BNP #### [facility] [address] [place], [place] [id number] [facility] Activated partial thrombopla stin time (aPTT) in platelet poor plasma by coagulation aon 08-18-2020 aPTT Coag (PPP) [Time] 36.9 s 25.1-36.5 [facility] Albumin [Mass/volume] in Ser um or Plasmaon 08-18-2020 Albumin [Mass/Vol] 2.7 g/dL 3.2-5.5 [facility] B-Type Natriuretic Peptideon 08-18-2020 Natriuretic peptide B (Bld) [Mass/Vol] 48.0 pg/mL Normal 5-100 [facility] Comment on above: Result Comment: PERF ORMED BY: [address] [address] PATHOLOGIST TIP PUNCHER JORDAN RODRIGUEZ M.D. Performed By: #### C MP, CBC, MG, TROP, BNP #### [address] Bacterial blood cultureon Bacteria identified Cx Nom (Bld) NO GROWTH 5 DAYS [facility] Basophils Auto (Bld) [#/Vol] on 08-18-2020 Basophils (Bld) [#/Vol] 0.0 10*3/uL 0.0-0.2 [facility] Basophils/100 WBC Auto (Bld) on 08-18-2020 Basophils/100 WBC (Bld) 0.3 % [facility] Beta Hydroxybuterateon 08-18 Beta Hydroxybuterate 0.44 mmol/L High 0.02-0.27 [facility] Comment on above: Result Comment: PERF ORMED BY: [place] [address] PATHOLOGIST TIP PUNCHER JORDAN RODRIGUEZ M.D. Performed By: #### C MP, CBC, MG, TROP, BNP #### [address] Beta-hydroxybutyric acid faraz surementon 08-18-2020 Beta hydroxybutyrate [Mass/Vol] 0.44 mmol/L 0.02-0.27 [facility] BioFire Not Detectedon 08-18 BioFire Not Detected Not detected Normal Not Detecte [facility] Comment on above: Result Comment: This is a duplicate RP2.1 COVID (PCR) result to be used for statistical tracking purpose only. PERFORMED BY: [place] [address] PATHOLOGIST TIP PUNCHER JORDAN RODRIGUEZ M.D. Performed By: #### C MP, CBC, MG, TROP, BNP #### [address] Blood Cultureon 08-18-2020 Bacteria identified Cx Nom (Bld) NO GROWTH 5 DAYS PERFORMED BY: [place] [address] PATHOLOGIST TIP PUNCHER JORDAN RODRIGUEZ M.D. [facility] Comment on above: Performed By: #### C MP, CBC, MG, TROP, BNP #### [address] Bacteria identified Cx Nom (Bld) NO GROWTH 5 DAYS PERFORMED BY: [place] [address] PATHOLOGIST TIP PUNCHER JORDAN RODRIGUEZ M.D. [facility] Comment on above: Performed By: #### C MP, CBC, MG, TROP, BNP #### [facility] [address] Blood hemoglobin measurement (mass/volume)on 08-18-2020 Hemoglobin (Bld) [Mass/Vol] 11.8 g/dL 13.0-17.0 [facility] Blood leukocytes automated c ount (number/volume)on 08-18-2020 WBC (Bld) [#/Vol] 15.3 10*3/uL 4.5-11.0 [facility] COVID-19 Antigenon 1 COVID-19 Antigen Healthcare Worker?: N Liat Reference Liat Reference Negative SARS-CoV+SARS-CoV-2 (COVID-19) Ag [Presence] in Respiratory specimen by Rapid immunoassay Negative for SARS Antigen by AGUSTINA COVID19 Blank Space -- Liat Disclaimer Negative results, from patients with symptom Liat Disclaimer onset beyond five days, should be treated as Liat Disclaimer presumptive and confirmation with a molecular Liat Disclaimer assay, if necessary, for patient management, Liat Disclaimer may be performed. Negative results do not rule Liat Disclaimer out COVID-19 and should not be used as the sole Liat Disclaimer basis for treatment or patient management Liat Disclaimer decisions, including infection control decisions. Liat Disclaimer Negative results should be considered in the Liat Disclaimer context of a patient's recent exposures, history Liat Disclaimer and the presence of clinical signs and symptoms Liat Disclaimer consistent with COVID-19. COVID19 Blank Space -- Liat Disclaimer The Liat SARS Antigen AGUSTINA does not differentiate Liat Disclaimer between SARS-CoV and SARS-CoV-2. COVID19 Blank Space -- Liat Disclaimer This test was developed and its performance Liat Disclaimer characteristic determined by [employer] and Liat Disclaimer validated at [facility]. This Lita Disclaimer test has not been FDA cleared or approved. This Liat Disclaimer test has been authorized by FDA under an Emergency Use Liat Disclaimer Authorization (EUA). This test has been validated Liat Disclaimer in accordance with the FDA's Guidance Document (Policy Liat Disclaimer for Diagnostics Testing in Laboratories Certified to Liat Disclaimer Perform High Complexity Testing under CLIA prior to Liat Disclaimer Emergency Use Authorization for Coronavirus Liat Disclaimer during the Public Health Emergency) Liat Disclaimer issued on July 30, 2019. This test is only authorized Liat Disclaimer for the duration of time the declaration that Liat Disclaimer circumstances exist justifying the authorization of Liat Disclaimer the emergency use of in vitro diagnostic tests for Liat Disclaimer detection of SARS-CoV-2 virus and/or diagnosis of Liat Disclaimer COVID-19 infection under section 564(b)(1) of the Liat Disclaimer Act, 21 U.S.C. 360bbb-3(b)(1), unless the Liat Disclaimer authorization is terminated or revoked sooner. PERFORMED BY: [facility] [place] [address] PATHOLOGIST TIP PUNCHER JORDAN RODRIGUEZ M.D. Normal [facility] Comment on above: Performed By: #### C OVID-19 LIAT, SOFIANEG #### [address] COVID-19 Detected/Not Detect edon 08-18-2020 SARS-CoV-2 (COVID-19) RNA SUDHA+non-probe Ql (Nph) Not detected Not Detecte [facility] Comment on above: This is a duplicate RP2.1 COVID (PCR) result to be used for statistical tracking purpose only. COVID-19 SOFIAon 08-18-2020 SARS-CoV+SARS-CoV-2 (COVID-19) Ag IA.rapid Ql (Resp) Negative Negative [facility] Comment on above: This is a duplicate Liat SARS Antigen (AGUSTINA) result to be used for statistical tracking purpose only. Coagulation Profileon 2020 aPTT Coag (Bld) [Time] 36.9 s High 25.1-36.5 [facility] Comment on above: Order Comment: REDRA W FOR SHORT DRAW AND HEMOLYSIS Result Comment: PERF ORMED BY: [place] [address] PATHOLOGIST TIP PUNCHER JORDAN RODRIGUEZ M.D. Performed By: #### P P #### [address] INR Coag (PPP) [Relative time] 1.0 {INR} Normal [facility] Comment on above: Order Comment: REDRA W FOR SHORT DRAW AND HEMOLYSIS Result Comment: INR Therapeutic Range A) Pre- and Peroperative OAT started two weeks before surgery. NOT HIP SURGERY: 1.5 - 2.5 HIP SURGERY: 2 - 3 B) Primary and secondary prevention of venous THROMBOSIS: 2 - 3 C) Active venous thrombosis, pulmonary embolism and prevention of recurrent venous thrombosis: 2 - 3 D) Prevention of arterial thromboembolism including patients with mechanical heart valves: 3 - 4.5 Performed By: #### P P #### [address] PT Coag (PPP) [Time] 11.7 s Normal 9.0-12.9 [facility] Comment on above: Order Comment: REDRA W FOR SHORT DRAW AND HEMOLYSIS Performed By: #### P P #### [address] Complete Blood Count Auto Di ffon 08-18-2020 Basophils (Bld) [#/Vol] 0.0 10*3/uL Normal 0.0-0.2 [facility] Comment on above: Result Comment: PERF ORMED BY: [place] [address] PATHOLOGIST TIP PUNCHER JORDAN RODRIGUEZ M.D. Performed By: #### C MP, CBC, MG, TROP, BNP #### [address] Basophils/100 WBC (Bld) 0.3 % Normal . [facility] Comment on above: Performed By: #### C MP, CBC, MG, TROP, BNP #### [address] Eosinophils (Bld) [#/Vol] 0.5 10*3/uL High 0.0-0.45 [facility] Comment on above: Performed By: #### C MP, CBC, MG, TROP, BNP #### [address] Eosinophils/100 WBC (Bld) 3.4 % Normal . [facility] Comment on above: Performed By: #### C MP, CBC, MG, TROP, BNP #### [address] Erythrocyte distribution width (RBC) [Ratio] 16.3 % High 12.0-14.8 [facility] Comment on above: Performed By: #### C MP, CBC, MG, TROP, BNP #### [address] Hematocrit (Bld) [Volume fraction] 36.1 % Low 38.8-50.0 [facility] Comment on above: Performed By: #### C MP, CBC, MG, TROP, BNP #### [address] Hemoglobin (Bld) [Mass/Vol] 11.8 g/dL Low 13.0-17.0 [facility] Comment on above: Performed By: #### C MP, CBC, MG, TROP, BNP #### [address] Lymphocytes (Bld) [#/Vol] 0.9 10*3/uL Low 1.00-4.8 [facility] Comment on above: Performed By: #### C MP, CBC, MG, TROP, BNP #### [address] Lymphocytes/100 WBC (Bld) 6.1 % Normal . [facility] Comment on above: Performed By: #### C MP, CBC, MG, TROP, BNP #### [address] MCH (RBC) [Entitic mass] 27.2 pg Low 27.5-35.2 [facility] Comment on above: Performed By: #### C MP, CBC, MG, TROP, BNP #### [address] MCV (RBC) [Entitic vol] 83.5 fL Normal 83.5-101 [facility] Comment on above: Performed By: #### C MP, CBC, MG, TROP, BNP #### [address] Mean Corpuscular HGB Conc 32.6 g/dL Normal 32.5-35.6 [facility] Comment on above: Performed By: #### C MP, CBC, MG, TROP, BNP #### [address] Monocytes (Bld) [#/Vol] 1.5 10*3/uL High 0.0-0.8 [facility] Comment on above: Performed By: #### C MP, CBC, MG, TROP, BNP #### [address] Monocytes/100 WBC (Bld) 10.1 % Normal . [facility] Comment on above: Performed By: #### C MP, CBC, MG, TROP, BNP #### [address] Neutrophils (Bld) [#/Vol] 12.3 10*3/uL High 1.8-7.7 [facility] Comment on above: Performed By: #### C MP, CBC, MG, TROP, BNP #### [address] Neutrophils/100 WBC (Bld) 80.1 % Normal . [facility] Comment on above: Performed By: #### C MP, CBC, MG, TROP, BNP #### [address] Nucleated RBC/100 WBC (Bld) [Ratio] 0.1 % Normal 0-0.5 [facility] Comment on above: Performed By: #### C MP, CBC, MG, TROP, BNP #### [address] Platelet mean volume (Bld) [Entitic vol] 7.3 fL Normal 6.6-10.1 [facility] Comment on above: Performed By: #### C MP, CBC, MG, TROP, BNP #### [place] [address] [place] Platelets (Bld) [#/Vol] 249 10*3/uL Normal 150-450 [facility] Comment on above: Performed By: #### C MP, CBC, MG, TROP, BNP #### [place] [address] [place] RBC (Bld) [#/Vol] 4.32 10*6/uL Normal 3.90-5.60 [facility] Comment on above: Performed By: #### C MP, CBC, MG, TROP, BNP #### [place] [address] [place] WBC (Bld) [#/Vol] 15.3 10*3/uL High 4.5-11.0 [facility] Comment on above: Performed By: #### C MP, CBC, MG, TROP, BNP #### [facility] [address] [place] [address] Comprehensive Metabolic Pane babatunde 08-18-2020 Albumin [Mass/Vol] 2.7 g/dL Low 3.2-5.5 [facility] Comment on above: Performed By: #### C MP, CBC, MG, TROP, BNP #### [address] Albumin/Globulin [Mass ratio] 0.6 {ratio} Normal [facility] Comment on above: Performed By: #### C MP, CBC, MG, TROP, BNP #### [address] ALP [Catalytic activity/Vol] 88 U/L Normal 32-92 [facility] Comment on above: Performed By: #### C MP, CBC, MG, TROP, BNP #### [address] ALT [Catalytic activity/Vol] 13 U/L Normal 10-60 [facility] Comment on above: Performed By: #### C MP, CBC, MG, TROP, BNP #### [address] AST [Catalytic activity/Vol] 16 U/L Normal 10-42 [facility] Comment on above: Performed By: #### C MP, CBC, MG, TROP, BNP #### [address] Bilirubin [Mass/Vol] 0.7 mg/dL Normal 0.3-1.2 [facility] Comment on above: Performed By: #### C MP, CBC, MG, TROP, BNP #### [address] Calcium [Mass/Vol] 8.9 mg/dL Normal 8.2-10.2 [facility] Comment on above: Performed By: #### C MP, CBC, MG, TROP, BNP #### [address] Chloride [Moles/Vol] 95 mmol/L Normal 95-114 [facility] Comment on above: Performed By: #### C MP, CBC, MG, TROP, BNP #### [address] CO2 [Moles/Vol] 22.6 mmol/L Normal 22.0-30.0 [facility] Comment on above: Performed By: #### C MP, CBC, MG, TROP, BNP #### [address] Creatinine [Mass/Vol] 3.04 mg/dL High 0.64-1.27 [facility] Comment on above: Performed By: #### C MP, CBC, MG, TROP, BNP #### [address] Creatinine Clr Calc Pharmacy 38.57 [facility] Comment on above: Performed By: #### C MP, CBC, MG, TROP, BNP #### [address] Estimated GFR ( Camilla 26 [facility] Comment on above: Result Comment: GFR estimated reference range: According to KDOQI guidelines, <60 ml/min/1.73m2 is sufficient to diagnose a patient with chronic kidney disease. Performed By: #### C MP, CBC, MG, TROP, BNP #### [address] Estimated GFR (Non- Am 21 [facility] Comment on above: Performed By: #### C MP, CBC, MG, TROP, BNP #### [address] Globulin (S) [Mass/Vol] 4.4 g/dL [facility] Comment on above: Performed By: #### C MP, CBC, MG, TROP, BNP #### [address] Glucose [Mass/Vol] 512 mg/dL Off scale high 70-100 [facility] Comment on above: Result Comment: Resu lts called at 1659 on 08/18/20 Random Glucose Reference Range is dependent on time and content of last meal. Glucose of more than 200 mg/dL in a nonstressed, ambulatory subject supports the diagnosis of Diabetes Mellitus. ADA recommended reference range Performed By: #### C MP, CBC, MG, TROP, BNP #### [address] Potassium [Moles/Vol] 4.2 mmol/L Normal 3.5-5.1 [facility] Comment on above: Performed By: #### C MP, CBC, MG, TROP, BNP #### [address] Protein [Mass/Vol] 7.1 g/dL Normal 6.1-7.9 [facility] Comment on above: Performed By: #### C MP, CBC, MG, TROP, BNP #### [address] Sodium [Moles/Vol] 128 mmol/L Low 136-146 [facility] Comment on above: Performed By: #### C MP, CBC, MG, TROP, BNP #### [address] Urea nitrogen [Mass/Vol] 27 mg/dL High 9-23 [facility] Comment on above: Performed By: #### C MP, CBC, MG, TROP, BNP #### [address] Creatinine and Glomerular fi ltration rate.predicted panel (S/P/Bld)on 08-18-2020 Creatinine [Mass/Vol] 3.04 mg/dL 0.64-1.27 [facility] ECG 12 lead ECGon 08-18-2020 ECG 12 lead ECG [facility] [place] [address] [place] [address] Electrocardiograph Report Signed Patient: Rashard Lyman MR#: [id number] : 1960 Acct:[id number] Age/Sex: 60 / M ADM Date: 08/18/20 Loc: 4 Room: 7I4212-6 Type: ADM IN Attending Dr: Eugene Morel DO Ordering Provider: Mariana Basilio PA-C Date of Service: 08/18/20 ECG/ECG 12 lead ECG: Shortness of Breath/Dyspnea Copies to: Test Reason : Blood Pressure : 195/093 mmHG Vent. Rate : 094 BPM Atrial Rate : 094 BPM P-R Int : 204 ms QRS Dur : 112 ms QT Int : 362 ms P-R-T Axes : 059 034 046 degrees QTc Int : 452 ms Normal sinus rhythm Normal ECG When compared with ECG of 02-JAN-2019 07:37, No significant change was found Confirmed by ADRIA PABON DO ([id number]) on 08/19/2020 10:02:40 AM Referred By: Electronically Signed By:ADRIA PABON DO Transcribed By: MUS Dictated By: Adria Pabon DO 08/18/20 1539 Signed By: 08/19/20 1002 Normal [facility] Eosinophils Auto (Bld) [#/Vo l]on 08-18-2020 Eosinophils (Bld) [#/Vol] 0.5 10*3/uL 0.0-0.45 [facility] Eosinophils/100 WBC Auto (Bl d)on 08-18-2020 Eosinophils/100 WBC (Bld) 3.4 % [facility] Erythrocyte distribution wid th Auto (RBC) [Ratio]on 08-18-2020 Erythrocyte distribution width (RBC) [Ratio] 16.3 % 12.0-14.8 [facility] Estimated glomerular filtrat ion rate (GFR) non- Americanon 08-18-2020 GFR/1.73 sq M.predicted among non-blacks MDRD (S/P/Bld) [Vol rate/Area] 21 mL/Min [facility] Globulin Calc (S) [Mass/Vol] on 08-18-2020 Globulin (S) [Mass/Vol] 4.4 g/dL [facility] Glucose Glucometer (BldC) [M ass/Vol]on 08-18-2020 Glucose [Mass/Vol] 388 mg/dL [facility] Comment on above: Random Glucose Refer ence Range is dependent on time and content of last meal. Glucose of more than 200 mg/dL in a nonstressed, ambulatory subject supports the diagnosis of Diabetes Mellitus. Glucose Poct Glucometerson 0 08-18-2020 Glucose [Mass/Vol] 388 mg/dL Normal [facility] Comment on above: Result Comment: [facility] Glucose Reference Range is dependent on time and content of last meal. Glucose of more than 200 mg/dL in a nonstressed, ambulatory subject supports the diagnosis of Diabetes Mellitus. PERFORMED BY: [facility] [address] [place] [address] PATHOLOGIST TIP PUNCHER JORDAN RODRIGUEZ M.D. Performed By: #### C MP, CBC, MG, TROP, BNP #### [address] Hematocrit Auto (Bld) [Volum e fraction]on 08-18-2020 Hematocrit (Bld) [Volume fraction] 36.1 % 38.8-50.0 [facility] Laboratory - Chemistry and C hemistry - challengeon 08-18-2020 CO2 [Moles/Vol] 25.7 mmol/L 24.0-29.0 [facility] HCO3 (Bld) [Moles/Vol] 24.3 mmol/L 23.0-29.0 [facility] Magnesium [Mass/Vol] 2.2 mg/dL 1.6-2.6 [facility] Natriuretic peptide B (Bld) [Mass/Vol] 48.0 pg/mL 5-100 [facility] Laboratory - Coagulationon 0 08-18-2020 PT Coag (PPP) [Time] 11.7 s 9.0-12.9 [facility] Laboratory - Hematology and Cell countson 08-18-2020 Nucleated RBC/100 WBC (Bld) [Ratio] 0.1 % 0-0.5 [facility] Lymphocytes Auto (Bld) [#/Vo l]on 08-18-2020 Lymphocytes (Bld) [#/Vol] 0.9 10*3/uL 1.00-4.8 [facility] Lymphocytes/100 WBC Auto (Bl d)on 08-18-2020 Lymphocytes/100 WBC (Bld) 6.1 % [facility] MCH Auto (RBC) [Entitic mass ]on 08-18-2020 MCH (RBC) [Entitic mass] 27.2 pg 27.5-35.2 [facility] MCHC Auto (RBC) [Mass/Vol]on 08-18-2020 MCHC (RBC) [Mass/Vol] 32.6 g/dL 32.5-35.6 [facility] MCV Auto (RBC) [Entitic vol] on 08-18-2020 MCV (RBC) [Entitic vol] 83.5 fL 83.5-101 [facility] Magnesiumon 08-18-2020 Magnesium [Mass/Vol] 2.2 mg/dL Normal 1.6-2.6 [facility] Comment on above: Result Comment: PERF ORMED BY: [place] [address] PATHOLOGIST TIP PUNCHER JORDAN RODRIGUEZ M.D. Performed By: #### C MP, CBC, MG, TROP, BNP #### [address] Monocytes Auto (Bld) [#/Vol] on 08-18-2020 Monocytes (Bld) [#/Vol] 1.5 10*3/uL 0.0-0.8 [facility] Monocytes/100 WBC Auto (Bld) on 08-18-2020 Monocytes/100 WBC (Bld) 10.1 % [facility] Neutrophils Auto (Bld) [#/Vo l]on 08-18-2020 Neutrophils (Bld) [#/Vol] 12.3 10*3/uL 1.8-7.7 [facility] Neutrophils/100 WBC Auto (Bl d)on 08-18-2020 Neutrophils/100 WBC (Bld) 80.1 % [facility] No Panel Informationon 08-18 Respiratory Panel (PCR) [facility] Blood Gas Critical Value See comment [facility] Comment on above: Critical Value fonseca d on: 08/18/2020 at 17:44 Blood Gas Sample Site Venous [facility] FiO2 21 % [facility] Venous Blood Base Excess -1.5 mmol/L -3.0-3.0 [facility] Venous Blood Oxygen Content 4.1 mmol/L 6.6-9.7 [facility] Venous Blood Oxygen Saturation 53.3 % 73.0-76.0 [facility] Venous Blood Partial Pressure CO2 45.2 mm[Hg] 38.0-50.0 [facility] Venous Blood Partial Pressure O2 24.4 mm[Hg] 35.0-45.0 [facility] Venous Blood pH 7.35 7.32-7.43 [facility] Estimated GFR () 26 mL/Min [facility] Comment on above: GFR estimated refere nce range: According to KDOQI guidelines, <60 ml/min/1.73m2 is sufficient to diagnose a patient with chronic kidney disease. Pharmacy Creatinine Clearance (Chem 38.57 [facility] Platelet mean volume Auto (B ld) [Entitic vol]on 08-18-2020 Platelet mean volume (Bld) [Entitic vol] 7.3 fL 6.6-10.1 [facility] Platelet poor plasma interna tional normalized ratio (INR) by coagulation assay (relaton 08-18-2020 INR Coag (PPP) [Relative time] 1.0 {INR} [facility] Comment on above: INR Therapeutic Rang e A) Pre- and Peroperative OAT started two weeks before surgery. NOT HIP SURGERY: 1.5 - 2.5 HIP SURGERY: 2 - 3B) Primary and secondary prevention of venous THROMBOSIS: 2 - 3C) Active venous thrombosis, pulmonary embolismand prevention of recurrent venous thrombosis: 2 - 3D) Prevention of arterial thromboembolismincluding patients with mechanical heart valves: 3 - 4.5 Platelets Auto (Bld) [#/Vol] on 08-18-2020 Platelets (Bld) [#/Vol] 249 10*3/uL 150-450 [facility] Protein [Mass/volume] in Ser um or Plasmaon 08-18-2020 Protein [Mass/Vol] 7.1 g/dL 6.1-7.9 [facility] RBC Auto (Bld) [#/Vol]on RBC (Bld) [#/Vol] 4.32 10*6/uL 3.90-5.60 [facility] Respiratory (Upper) Panel, P CRon 08-18-2020 Respiratory (Upper) Panel, PCR Adenovirus Not detected Bordetella parapertussis Not detected Chlamydia pneumoniae Not detected Coronavirus 229E Not detected Coronavirus HKU1 Not detected Coronavirus NL63 Not detected Coronavirus OC43 Not detected COVID19 Blank Space -- COVID19 Disclaimer This test was developed and its performance COVID19 Disclaimer characteristics determined by [employer], COVID19 Disclaimer Disease-2019 during the Public Health Emergency) COVID19 Disclaimer issued on July 30, 2019. This test is only authorized COVID19 Disclaimer for the duration of time the declaration that COVID19 Disclaimer circumstances exist justifying the authorization COVID19 Disclaimer of the emergency use of in vitro diagnostic tests COVID19 Disclaimer for SARS-CoV-2 virus and/or diagnosis of COVID-19 COVID19 Disclaimer infection under section 564(b)(1) of the Act, 21 COVID19 Disclaimer U.S.C.360bbb-3(b)(1), unless the authorization is COVID19 Disclaimer terminated or revoked sooner. [employer]19 [employer]claimer [employer] and validated at [address] This has not been FDA cleared or COVID19 Disclaimer approved. This test has been authorized by FDA under COVID19 Disclaimer an Emergency Use Authorization (EUA). This test has COVID19 Disclaimer been validated in accordance with the FDA's Guidance COVID19 Disclaimer Document (Policy for Diagnostics Testing Laboratories COVID19 Disclaimer Certified to Perform High Complexity Testing under [place] COVID19 Disclaimer prior to Emergency Use Authorization for Coronavirus Influenza A Not detected Influenza B Not detected Human Metapneumovirus Not detected Mycoplasma pneumoniae Not detected Parainfluenza Virus 1 Not detected Parainfluenza Virus 2 Not detected Parainfluenza Virus 3 Not detected Parainfluenza Virus 4 Not detected Bordetella pertussis-ptxP Not detected Human Rhino/Enterovirus Not detected Resp. Syncytial Virus Not detected COVID-19 Detected/Not Detected Not detected PERFORMED BY: [facility] [address] [place] [address] PATHOLOGIST TIP PUNCHER JORDAN RODRIGUEZ M.D. Normal [facility] Comment on above: Performed By: #### C MP, CBC, MG, TROP, BNP #### [facility] [address] Serum or plasma alanine gomez otransferase measurement without P-5'-P (enzymatic activion 08-18-2020 ALT No additional P-5'-P [Catalytic activity/Vol] 13 U/L 10-60 [facility] Serum or plasma albumin/glob ulin mass ratioon 08-18-2020 Albumin/Globulin [Mass ratio] 0.6 {ratio} [facility] Serum or plasma alkaline kayode sphatase measurement (enzymatic activity/volume)on 08-18-2020 ALP [Catalytic activity/Vol] 88 U/L 32-92 [facility] Serum or plasma aspartate am inotransferase measurement (enzymatic activity/volume)on 08-18-2020 AST [Catalytic activity/Vol] 16 U/L 10-42 [facility] Serum or plasma calcium joel urement (mass/volume)on 08-18-2020 Calcium [Mass/Vol] 8.9 mg/dL 8.2-10.2 [facility] Serum or plasma cardiac trop onin I measurement (mass/volume)on 08-18-2020 Troponin I.cardiac [Mass/Vol] ng/mL 0-0.02 [facility] Comment on above: HÉCTOR NM Cut off value > or equal to 0.03 ng/mL in conjunction with clinical conditions of myocardial infarction.(www.escardio.org/guidelines) Serum or plasma chloride faraz surement (moles/volume)on 08-18-2020 Chloride [Moles/Vol] 95 mmol/L 95-114 [facility] Serum or plasma glucose joel urement (mass/volume)on 08-18-2020 Glucose [Mass/Vol] 512 mg/dL 70-100 [facility] Comment on above: Results calledat 165 9 on 08/18/20 ADA recommended reference rangeRandom Glucose Reference Range is dependent on time and content of last meal. Glucose of more than 200 mg/dL in a nonstressed, ambulatory subject supports the diagnosis of Diabetes Mellitus. Serum or plasma potassium me asurement (moles/volume)on 08-18-2020 Potassium [Moles/Vol] 4.2 mmol/L 3.5-5.1 [facility] Serum or plasma sodium measu rement (moles/volume)on 08-18-2020 Sodium [Moles/Vol] 128 mmol/L 136-146 [facility] nds [facility] Serum or plasma total biliru bin measurement (mass/volume)on 08-18-2020 Bilirubin [Mass/Vol] 0.7 mg/dL 0.3-1.2 [facility] Serum or plasma total carbon dioxide measurement (moles/volume)on 08-18-2020 CO2 [Moles/Vol] 22.6 mmol/L 22.0-30.0 [facility] Serum or plasma urea nitroge n measurement (mass/volume)on 08-18-2020 Urea nitrogen [Mass/Vol] 27 mg/dL 01-19 [facility] Liat Ag Negativeon 08-19-19 21 Liat Ag Negative Negative Normal Negative [facility] Comment on above: Result Comment: This is a duplicate Liat SARS Antigen (AGUSTINA) result to be used for statistical tracking purpose only. PERFORMED BY: [place] [address] PATHOLOGIST TIP PUNCHER JORDAN RODRIGUEZ M.D. Performed By: #### C OVID-19 LIAT, SOFIANEG #### [address] Troponin I(TnI)on 08-18-2020 Troponin I.cardiac [Mass/Vol] ng/mL Normal 0-0.02 [facility] Comment on above: Result Comment: HÉCTOR NM Cut off value > or equal to 0.03 ng/mL in conjunction with clinical conditions of myocardial infarction. (www.escardio.org/guidelines) PERFORMED BY: [place] [address] PATHOLOGIST TIP PUNCHER JORDAN RODRIGUEZ M.D. Performed By: #### C MP, CBC, MG, TROP, BNP #### [facility] [address] [place] [id number] [facility] Venous Blood Gason CO2 [Moles/Vol] 25.7 mmol/L Normal 24.0-29.0 [facility] Comment on above: Performed By: #### V BG #### Point of Care testing , HCO3 (Bld) [Moles/Vol] 24.3 mmol/L Normal 23.0-29.0 [facility] Comment on above: Performed By: #### V BG #### Point of Care testing , Respiratory Critical Normal [facility] Comment on above: Result Comment: Crit ical Value called on: 08/18/2020 at 17:44 PERFORMED BY: [place] [address] PATHOLOGIST TIP PUNCHER JORDAN RODRIGUEZ M.D. Performed By: #### V BG #### Point of Care testing , VBG Base Excess -1.5 mmol/L Normal -3.0-3.0 [facility] Comment on above: Performed By: #### V BG #### Point of Care testing , VBG Draw Site Venous Normal [facility] Comment on above: Performed By: #### V BG #### Point of Care testing , VBG Frac Inspired O2 21 % Normal [facility] Comment on above: Performed By: #### V BG #### Point of Care testing , VBG O2 Content 4.1 mmol/L Low 6.6-9.7 [facility] Comment on above: Performed By: #### V BG #### Point of Care testing , VBG Oxygen Saturation 53.3 % Off scale low 73.0-76.0 [facility] Comment on above: Performed By: #### V BG #### Point of Care testing , VBG PCO2 45.2 mm[Hg] Normal 38.0-50.0 [facility] Comment on above: Performed By: #### V BG #### Point of Care testing , VBG PH Venous PH 7.35 Normal 7.32-7.43 [facility] Comment on above: Performed By: #### V BG #### Point of Care testing , VBG PO2 24.4 mm[Hg] Low 35.0-45.0 [facility] Comment on above: Performed By: #### V BG #### Point of Care testing , XR chest 1V portableon 08-18 XR chest 1V portable [facility] [address] XRay Report Signed Patient: Rashard Lyman MR#: [id number] : 1960 Acct:[id number] Age/Sex: 60 / M ADM Date: 08/18/20 Loc: ER Room: Type: [facility] ER Attending Dr: Ordering Provider: Mariana Basilio PA-C Date of Service: 08/18/20 XR/XR chest 1V portable: Shortness of Breath/Dyspnea Copies to: Mariana Basilio PA-C PORTABLE AP ERECT CHEST 1615 hours CLINICAL HISTORY: Cough and shortness of breath COMPARISON: 12/14/2014 There is some respiratory motion. The heart is mildly prominent. There is pleural-parenchymal opacity at the left base where the hemidiaphragm is obscured. No pneumothorax is seen. The bony structures are intact. XR/XR chest 1V portable IMPRESSION: MILD CARDIOMEGALY. LEFT BASILAR PLEURAL-PARENCHYMAL CHANGE. Impression dictated by: Chitra Brantley M.D.08/18/2020 4:24 PM Dictation Location: [place] [address] Transcribed By: [facility] 08/18/20 162 Dictated By: Chitra Brantley MD 08/18/20 162 Signed By: 08/18/20 1624 Normal [facility] CBC COMPLETE BLOOD COUNTon 0 07-22-2020 Erythrocyte distribution width (RBC) [Ratio] 15.0 % Normal 11.5-15.0 [facility] Comment on above: Order Comment: No: D o not add to previous draw Performed By: #### 8 [id number] #### [facility] [address] [place] [address], [facility] Hematocrit (Bld) [Volume fraction] 32.4 % Low 39.0-50.0 [facility] Comment on above: Order Comment: No: D o not add to previous draw Performed By: #### 8 [id number] #### [facility] [address] [place] [address], [facility] Hemoglobin (Bld) [Mass/Vol] 9.5 g/dL Low 13.0-17.0 [facility] Comment on above: Order Comment: No: D o not add to previous draw Performed By: #### 8 [id number] #### [facility] [address] [place] [address], [facility] MCH (RBC) [Entitic mass] 26.7 pg Low 27.0-33.0 [facility] Comment on above: Order Comment: No: D o not add to previous draw Performed By: #### 8 [id number] #### [facility] [address] [place] [address], [facility] MCHC (RBC) [Mass/Vol] 29.3 g/dL Low 32.0-35.0 [facility] Comment on above: Order Comment: No: D o not add to previous draw Performed By: #### 8 [id number] #### [facility] [address] [place] [address], [facility] MCV (RBC) [Entitic vol] 91.0 fL Normal 82.0-98.0 [facility] Comment on above: Order Comment: No: D o not add to previous draw Performed By: #### 8 [id number] #### [facility] [address] [place] [address], [facility] Nucleated RBC/100 WBC (Bld) [Ratio] 0 % Normal 0-0 [facility] Comment on above: Order Comment: No: D o not add to previous draw Performed By: #### 8 [id number] #### [facility] [address] [place] [address], [facility] PLAT CNT 276 10*3/uL Normal 150-400 [facility] Comment on above: Order Comment: No: D o not add to previous draw Performed By: #### 8 [id number] #### [facility] [address] [place] [address], [facility] RBC (Bld) [#/Vol] 3.56 10*6/uL Low 4.20-5.70 [facility] Comment on above: Order Comment: No: D o not add to previous draw Performed By: #### 8 [id number] #### [facility] [address] [place] [address], [place] WBC (Bld) [#/Vol] 8.61 10*3/uL Normal 4.00-10.60 [facility] Comment on above: Order Comment: No: D o not add to previous draw Performed By: #### 8 [id number] #### [facility] [address] [place] [address], [facility] COMP METABOLIC PANELon 07-22 Albumin [Mass/Vol] 2.7 g/dL Low 3.5-5.7 [facility] Comment on above: Order Comment: No: D o not add to previous draw Performed By: #### 8 [id number] #### [facility] [address] [place] [address], [place] ALKALINE PHOSPH 70 IU/L Normal 34-104 [facility] Comment on above: Order Comment: No: D o not add to previous draw Performed By: #### 8 [id number] #### [facility] [address] [place] [address], [place] ALT [Catalytic activity/Vol] 4 U/L Low 7-52 [facility] Comment on above: Order Comment: No: D o not add to previous draw Performed By: #### 8 [id number] #### [facility] [address] [place] [address], [place] AST [Catalytic activity/Vol] 15 U/L Normal 13-39 [facility] Comment on above: Order Comment: No: D o not add to previous draw Performed By: #### 8 [id number] #### [facility] [address] [place] [address], [place] Bilirubin [Mass/Vol] 0.2 mg/dL Low 0.3-1.0 [facility] Comment on above: Order Comment: No: D o not add to previous draw Performed By: #### 8 [id number] #### [facility] [address] [place] [address], [place] Calcium [Mass/Vol] 8.9 mg/dL Normal 8.6-10.3 [facility] Comment on above: Order Comment: No: D o not add to previous draw Performed By: #### 8 [id number] #### [facility] [address] [place] [address], [place] Chloride [Moles/Vol] 109 mmol/L High 98-107 [facility] Comment on above: Order Comment: No: D o not add to previous draw Performed By: #### 8 [id number] #### [facility] [address] [place] [address], [place] CO2 [Moles/Vol] 24 mmol/L Normal 21-31 [facility] Comment on above: Order Comment: No: D o not add to previous draw Performed By: #### 8 [id number] #### [facility] [address] [place] [address], [place] Creatinine [Mass/Vol] 3.39 mg/dL High 0.70-1.30 [facility] Comment on above: Order Comment: No: D o not add to previous draw Performed By: #### 8 [id number] #### [facility] [address] [place] [address], [place] eGFR- 23 ml/min/1.73sq m Abnormal >60 [facility] Comment on above: Order Comment: No: D o not add to previous draw Performed By: #### 8 [id number] #### [facility] [address] [place] [address], [place] eGFR- non- 19 ml/min/1.73sq m Abnormal >60 [facility] Comment on above: Order Comment: No: D o not add to previous draw Performed By: #### 8 [id number] #### [facility] [address] [place] [address], [place] Glucose [Mass/Vol] 90 mg/dL Normal 70-100 [facility] Comment on above: Order Comment: No: D o not add to previous draw Performed By: #### 8 [id number] #### [facility] [address] [place] [address], [place] Potassium [Moles/Vol] 4.4 mmol/L Normal 3.5-5.1 [facility] Comment on above: Order Comment: No: D o not add to previous draw Performed By: #### 8 [id number] #### [facility] [address] [place] [address], [place] Protein [Mass/Vol] 5.9 g/dL Low 6.0-8.3 [facility] Comment on above: Order Comment: No: D o not add to previous draw Performed By: #### 8 [id number] #### [facility] [address] [place] [address], [place] Sodium [Moles/Vol] 140 mmol/L Normal 136-145 [facility] Comment on above: Order Comment: No: D o not add to previous draw Performed By: #### 8 [id number] #### [facility] [address] [place] [address], [place] Urea nitrogen [Mass/Vol] 35 mg/dL High 7-25 [facility] Comment on above: Order Comment: No: D o not add to previous draw Performed By: #### 8 [id number] #### [facility] [address] [place] [address], [place] POC GLUCOSE LABon 07-22-2020 Glucose [Mass/Vol] 192 mg/dL High 70-100 [facility] Comment on above: Performed By: #### 8 [id number] #### [facility] [address] [place] [address], [place] Glucose [Mass/Vol] 95 mg/dL Normal 70-100 [facility] Comment on above: Performed By: #### 5 [id number], [id number] #### [facility] [address] [place] [address], [place] Glucose [Mass/Vol] 123 mg/dL High 70-100 [facility] Comment on above: Performed By: #### 8 [id number] ####[facility] [place] [address], [place] ARTERIAL BLOOD GAS WITH ICAo n 07-21-2020 BASE EXCESS -2 mmol/L Normal -2-3 [facility] Comment on above: Performed By: #### 8 [id number] #### [facility] [address] [place] [address], [place] [employer] FOCUS Normal [facility] Comment on above: Performed By: #### 8 [id number] #### [facility] [address] [place] [address], [place] HCO3 (Bld) [Moles/Vol] 24 mmol/L Normal 21-28 [facility] Comment on above: Performed By: #### 8 [id number] #### [facility] [address] [place] [address], [place] IONIZED CALCIUM 1.25 mmol/L Normal 1.13-1.32 [facility] Comment on above: Performed By: #### 8 [id number] #### [facility] [address] [place] [address], [place] LPM 4.0 LPM Normal [facility] Comment on above: Performed By: #### 8 [id number] #### [facility] [address] [place] [address], [facility] MODALITY BIPAP Normal [facility] Comment on above: Performed By: #### 8 [id number] #### [facility] [address] [facility] [place] [address], [facility] Oxygen (Bld) [Partial pressure] 91 mm[Hg] Normal 83-108 [facility] Comment on above: Performed By: #### 8 [id number] #### [facility] [address] [facility] [place], [place] [id number] [place] [address] Oxygen saturation in Blood 95.9 % Normal 94.0-97.0 [facility] Comment on above: Performed By: #### 8 [id number] #### [facility] [address] [facility] [place] [address], [facility] PCO2 47 mmHg High 35-45 [facility] Comment on above: Performed By: #### 8 [id number] #### [facility] [address] [facility]. [address] PEEP 8.0 CMH20 Normal [facility] Comment on above: Performed By: #### 8 [id number] #### [facility] [address] [facility] [place] [address], [facility] pH (Bld) 7.32 [pH] Low 7.35-7.45 [facility] Comment on above: Performed By: #### 8 [id number] #### [facility] [address] [place] [address], [facility] PRESSURE SUPPORT 16 Normal [facility] Comment on above: Performed By: #### 8 [id number] #### [facility] [address] [place] [address], [facility] BASE EXCESS -3 mmol/L Low -2-3 [facility] Comment on above: Performed By: #### 3 0318 #### [facility] [address] [facility] [place] [address], [facility] [employer] NASAL CANNULA Normal [facility] Comment on above: Performed By: #### 3 0318 #### [facility] [address] [place] [address], [facility] HCO3 (Bld) [Moles/Vol] 25 mmol/L Normal 21-28 [facility] Comment on above: Performed By: #### 3 0318 #### [facility] [address] [place] [address], [facility] IONIZED CALCIUM 1.26 mmol/L Normal 1.13-1.32 [facility] Comment on above: Performed By: #### 3 0318 #### [facility] [address] [place] [address], [facility] LPM 2.0 LPM Normal [facility] Comment on above: Performed By: #### 3 0318 #### [facility] [address] [place] [address], [facility] Oxygen (Bld) [Partial pressure] 92 mm[Hg] Normal 83-108 [facility] Comment on above: Performed By: #### 3 0318 #### [facility] [address] [place] [address], [facility] Oxygen saturation in Blood 95.7 % Normal 94.0-97.0 [facility] Comment on above: Performed By: #### 3 0318 #### [facility] [address] [place] [address], [facility] PCO2 54 mmHg High 35-45 [facility] Comment on above: Performed By: #### 3 0318 #### [facility] [address] [place] [address], [place] pH (Bld) 7.27 [pH] Low 7.35-7.45 [facility] Comment on above: Performed By: #### 3 0318 #### [facility] [address] [place] [address], [facility] BASIC METABOLIC PANELon 03-2 Calcium [Mass/Vol] 9.0 mg/dL Normal 8.6-10.3 [facility] Comment on above: Order Comment: No: D o not add to previous drawPt not in room rn will return when back. Performed By: #### 3 1943 #### [facility] [address] [place] [address], [facility] Chloride [Moles/Vol] 106 mmol/L Normal 98-107 [facility] Comment on above: Order Comment: No: D o not add to previous drawPt not in room rn will return when back. Performed By: #### 3 1943 #### [facility] [address] [place] [address], [facility] CO2 [Moles/Vol] 25 mmol/L Normal 21-31 [facility] Comment on above: Order Comment: No: D o not add to previous drawPt not in room rn will return when back. Performed By: #### 3 1943 #### [facility] [address] [place] [address], [facility] Creatinine [Mass/Vol] 3.75 mg/dL High 0.70-1.30 [facility] Comment on above: Order Comment: No: D o not add to previous drawPt not in room rn will return when back. Performed By: #### 3 1943 #### [facility] [address] [place] [address], [facility] eGFR- 20 ml/min/1.73sq m Abnormal >60 [facility] Comment on above: Order Comment: No: D o not add to previous drawPt not in room rn will return when back. Performed By: #### 3 1943 #### [facility] [address] [place] [id number], [facility] eGFR- non- 17 ml/min/1.73sq m Abnormal >60 [facility] Comment on above: Order Comment: No: D o not add to previous drawPt not in room rn will return when back. Performed By: #### 3 1943 #### [facility] [address] [place] [address], [place] Glucose [Mass/Vol] 132 mg/dL High 70-100 [facility] Comment on above: Order Comment: No: D o not add to previous drawPt not in room rn will return when back. Performed By: #### 3 1943 #### [facility] [address] [place] [address], [facility] Potassium [Moles/Vol] 5.0 mmol/L Normal 3.5-5.1 [facility] Comment on above: Order Comment: No: D o not add to previous drawPt not in room rn will return when back. Performed By: #### 3 1943 #### [facility] [address] [place] [address], [place] Sodium [Moles/Vol] 138 mmol/L Normal 136-145 [facility] Comment on above: Order Comment: No: D o not add to previous drawPt not in room rn will return when back. Performed By: #### 3 1943 #### [facility] [address] [place] [address], [facility] Urea nitrogen [Mass/Vol] 37 mg/dL High 7-25 [facility] Comment on above: Order Comment: No: D o not add to previous drawPt not in room rn will return when back. Performed By: #### 3 1943 #### [facility] [address] [place] [address], [facility] CBC COMPLETE BLOOD COUNTon 0 07-21-2020 Erythrocyte distribution width (RBC) [Ratio] 15.0 % Normal 11.5-15.0 [facility] Comment on above: Order Comment: No: D o not add to previous drawPt not in room rn will return when back. Performed By: #### 8 [id number] #### [facility] [address] [place] [address], [facility] Hematocrit (Bld) [Volume fraction] 33.9 % Low 39.0-50.0 [facility] Comment on above: Order Comment: No: D o not add to previous drawPt not in room rn will return when back. Performed By: #### 8 [id number] #### [facility] [address] [place] [address], [facility] Hemoglobin (Bld) [Mass/Vol] 9.9 g/dL Low 13.0-17.0 [facility] Comment on above: Order Comment: No: D o not add to previous drawPt not in room rn will return when back. Performed By: #### 8 [id number] #### [facility] [address] [facility] [facility] [place] [address], [facility] MCH (RBC) [Entitic mass] 26.9 pg Low 27.0-33.0 [facility] Comment on above: Order Comment: No: D o not add to previous drawPt not in room rn will return when back. Performed By: #### 8 [id number] #### [facility] [address] [facility] MCHC (RBC) [Mass/Vol] 29.2 g/dL Low 32.0-35.0 [facility] Comment on above: Order Comment: No: D o not add to previous drawPt not in room rn will return when back. Performed By: #### 8 [id number] #### [facility] [address] [facility] [facility] [place] [place] [address], [facility] MCV (RBC) [Entitic vol] 92.1 fL Normal 82.0-98.0 [facility] Comment on above: Order Comment: No: D o not add to previous drawPt not in room rn will return when back. Performed By: #### 8 [id number] #### [facility] [address] [facility] [place] [address], [facility] Nucleated RBC/100 WBC (Bld) [Ratio] 0 % Normal 0-0 [facility] Comment on above: Order Comment: No: D o not add to previous drawPt not in room rn will return when back. Performed By: #### 8 [id number] #### [address] PLAT CNT 288 10*3/uL Normal 150-400 [facility] Comment on above: Order Comment: No: D o not add to previous drawPt not in room rn will return when back. Performed By: #### 8 [id number] #### [address] RBC (Bld) [#/Vol] 3.68 10*6/uL Low 4.20-5.70 [facility] Comment on above: Order Comment: No: D o not add to previous drawPt not in room rn will return when back. Performed By: #### 8 [id number] #### [address] WBC (Bld) [#/Vol] 9.51 10*3/uL Normal 4.00-10.60 [facility] Comment on above: Order Comment: No: D o not add to previous drawPt not in room rn will return when back. Performed By: #### 8 [id number] #### [address] CHEST WO CONTRASTon 07-21 CT CHEST WO CONTRAST [facility] Department of Radiology [address] [place] [id number] Patient Name: RASHARD LYMAN : 1960 Sex: M Age: Race: White Pt. Location: [address] [place] [address] Patient Status: I Ordered Date: 07/21/2020 6:00:00 AM Completed Date: 07/21/2020 05:04 AM Requesting Provider: DAVIS PHAM Attending Provider: SAVANNAH REYNOLDS Report Copy To: Signs & Symptoms: Fluid Collection History: See Comments Comments: Pleural Effusion, Loculated pleural effusion s/p thoracoscopy and chest tube placement Exam: CT CHEST WO CONTRAST CT CHEST WO CONTRAST 07/21/2020 5:04 AM SIGN AND SYMPTOMS: Fluid Collection TECHNOLOGIST COMMENTS: Fluid Collection. pt has chest tube on the left side QUESTIONS PER RADIOLOGIST: Pleural Effusion, Loculated pleural effusion s/p thoracoscopy and chest tube placement PROTOCOL: Axial CT images of the chest were obtained without IV contrast. TECHNIQUE: Multidetector CT axial slices of the chest were obtained without IV contrast. Multiplanar reformats were performed and viewed on a separate workstation and reviewed to further define anatomy and possible pathology.Appropriate CT dose lowering techniques were utilized. COMPARISON: July 13, 2020 FINDINGS: Lower neck: Finding Vessels: Finding no aneurysm Mediastinum and Odalys: Within normal limits. Heart: Airways: Within normal limits Lungs: See below Pleura: Loculated left pleural effusion. Posterior chest tube. Underlying airspace consolidation in the left lung. Multiple air-fluid levels in small loculated pockets of air which could indicate some necrotizing pneumonia. Air also appears to be some air within the pleural space in some of the loculated pockets. Appearance is similar to previous examination with some decrease in the pleural effusion especially posteriorly. Granuloma in the right lung base. No right-sided pneumonia. No right effusion Chest Wall: Normal Upper Abdomen: Normal Bones: Mild degenerative changes thoracic spine IMPRESSION: Loculated pockets of left pleural effusion some of which contain air-fluid levels. Posterior left chest tube some decrease in the amount of pleural effusion compared to previous exam Airspace density left lung also contains some small foci of air and could represent a necrotizing pneumonia. Electronically signed: Manuel Saldaña. Transcribed by: [email or web address], User Resident: Electronically Signed by: MANUEL SALDAÑA @ 07/21/2020 08:38 AM Normal [facility] Comment on above: Order Comment: Left Peural Effusion POC GLUCOSE LABon 07-21-2020 Glucose [Mass/Vol] 134 mg/dL High 70-100 [facility] Comment on above: Performed By: #### 5 0103 #### [facility] [address] [place] [address], [place] Glucose [Mass/Vol] 88 mg/dL Normal 70-100 [facility] Comment on above: Performed By: #### 8 [id number] #### [facility] [address] [place] [address], [place] Glucose [Mass/Vol] 110 mg/dL High 70-100 [facility] Comment on above: Performed By: #### 8 [id number] #### [facility] [address] [place] [address], [place] Glucose [Mass/Vol] 118 mg/dL High 70-100 [facility] Comment on above: Performed By: #### 5 7307, 299[address] #### [facility] [address] [place] [address], [place] Glucose [Mass/Vol] 137 mg/dL High 70-100 [facility] Comment on above: Performed By: #### 5 7307, 55[address] #### [facility] [address] [place] [address], [place] BASIC METABOLIC PANELon 06-28 Calcium [Mass/Vol] 8.4 mg/dL Low 8.6-10.3 [facility] Comment on above: Order Comment: No: D o not add to previous draw Performed By: #### 8 [id number] #### [facility] [address] [place] [address], [place] Chloride [Moles/Vol] 107 mmol/L Normal 98-107 [facility] Comment on above: Order Comment: No: D o not add to previous draw Performed By: #### 8 [id number] #### [facility] [address] [place] [address], [place] CO2 [Moles/Vol] 23 mmol/L Normal 21-31 [facility] Comment on above: Order Comment: No: D o not add to previous draw Performed By: #### 8 [id number] #### [facility] [address] [place] [address], [place] Creatinine [Mass/Vol] 3.95 mg/dL High 0.70-1.30 [facility] Comment on above: Order Comment: No: D o not add to previous draw Performed By: #### 8 [id number] #### [facility] [address] [place] [address], [place] eGFR- 19 ml/min/1.73sq m Abnormal >60 [facility] Comment on above: Order Comment: No: D o not add to previous draw Performed By: #### 8 [id number] #### [facility] [address] [place] [address], [place] eGFR- non- 16 ml/min/1.73sq m Abnormal >60 [facility] Comment on above: Order Comment: No: D o not add to previous draw Performed By: #### 8 [id number] #### [facility] [address] [place] [address], [place] Glucose [Mass/Vol] 110 mg/dL High 70-100 [facility] Comment on above: Order Comment: No: D o not add to previous draw Performed By: #### 8 [id number] #### [facility] [address] [place] [address], [place] Potassium [Moles/Vol] 4.9 mmol/L Normal 3.5-5.1 [facility] Comment on above: Order Comment: No: D o not add to previous draw Performed By: #### 8 [id number] #### [facility] [address] Sodium [Moles/Vol] 137 mmol/L Normal 136-145 [facility] Comment on above: Order Comment: No: D o not add to previous draw Performed By: #### 8 [id number] #### [facility] [address] [place] [address], [facility] Urea nitrogen [Mass/Vol] 37 mg/dL High 7-25 [facility] Comment on above: Order Comment: No: D o not add to previous draw Performed By: #### 8 [id number] #### [facility] [address] [facility] [place] [address], [facility] CBC W/DIFFon 07-20-2020 ABS IMM GRANS 0.1 10*3/uL Normal 0.0-0.2 [facility] Comment on above: Order Comment: No: D o not add to previous draw Performed By: #### 8 [id number] #### [facility] [address] [facility] [place] [address], [facility] ABS NEUTROPHILS 5.9 10*3/uL Normal 1.6-7.6 [facility] Comment on above: Order Comment: No: D o not add to previous draw Performed By: #### 8 [id number] #### [facility] [address] [facility] [place] [address], [facility] Basophils (Bld) [#/Vol] 0.1 10*3/uL Normal 0.0-0.2 [facility] Comment on above: Order Comment: No: D o not add to previous draw Performed By: #### 8 [id number] #### [facility] [address] [facility] [place] [address], [facility] Basophils/100 WBC (Bld) 1.0 % Normal 0.0-1.0 [facility] Comment on above: Order Comment: No: D o not add to previous draw Performed By: #### 8 [id number] #### [facility] [address] [place] [address], [place] Eosinophils (Bld) [#/Vol] 0.4 10*3/uL Normal 0.0-0.5 [facility] Comment on above: Order Comment: No: D o not add to previous draw Performed By: #### 8 [id number] #### [facility] [address] [place] [address], [facility] Eosinophils/100 WBC (Bld) 5.1 % Normal 0.0-6.0 [facility] Comment on above: Order Comment: No: D o not add to previous draw Performed By: #### 8 [id number] #### [facility] [address] [place] [address], [facility] Erythrocyte distribution width (RBC) [Ratio] 15.4 % High 11.5-15.0 [facility] Comment on above: Order Comment: No: D o not add to previous draw Performed By: #### 8 [id number] #### [facility] [address] [place] [address], [facility] Hematocrit (Bld) [Volume fraction] 35.7 % Low 39.0-50.0 [facility] Comment on above: Order Comment: No: D o not add to previous draw Performed By: #### 8 [id number] #### [facility] [address] [place] [address], [facility] Hemoglobin (Bld) [Mass/Vol] 10.3 g/dL Low 13.0-17.0 [facility] Comment on above: Order Comment: No: D o not add to previous draw Performed By: #### 8 [id number] #### [facility] [address] [place] [id number], [facility] IMM PLATELET FRAC 0.4 % Low 0.8-6.3 [facility] Comment on above: Order Comment: No: D o not add to previous draw Performed By: #### 8 [id number] #### [facility] [address] [place] [id number], [facility] IMMATURE GRANS 1.1 % High 0.0-1.0 [facility] Comment on above: Order Comment: No: D o not add to previous draw Performed By: #### 8 [id number] #### [facility] [address] [facility] [place] [address], [facility] Lymphocytes (Bld) [#/Vol] 0.8 10*3/uL Low 1.2-4.0 [facility] Comment on above: Order Comment: No: D o not add to previous draw Performed By: #### 8 [id number] #### [facility] [address] [facility] [place] [address], [facility] Lymphocytes/100 WBC (Bld) 9.3 % Low 20.0-45.0 [facility] Comment on above: Order Comment: No: D o not add to previous draw Performed By: #### 8 [id number] #### [facility] [address] [facility] [facility] [place] [address], [facility] MCH (RBC) [Entitic mass] 27.4 pg Normal 27.0-33.0 [facility] Comment on above: Order Comment: No: D o not add to previous draw Performed By: #### 8 [id number] #### [facility] [address] [facility] [place] [address], [facility] MCHC (RBC) [Mass/Vol] 28.9 g/dL Low 32.0-35.0 [facility] Comment on above: Order Comment: No: D o not add to previous draw Performed By: #### 8 [id number] #### [facility] [address] [facility] [place] [id number], [facility] MCV (RBC) [Entitic vol] 94.9 fL Normal 82.0-98.0 [facility] Comment on above: Order Comment: No: D o not add to previous draw Performed By: #### 8 [id number] #### [facility] [address] [place] [address], [facility] Monocytes (Bld) [#/Vol] 1.1 10*3/uL High 0.1-1.0 [facility] Comment on above: Order Comment: No: D o not add to previous draw Performed By: #### 8 [id number] #### [facility] [address] [place] [address], [place] MONOS 12.9 % High 5.0-12.0 [facility] Comment on above: Order Comment: No: D o not add to previous draw Performed By: #### 8 [id number] #### [facility] [address] [place] [address], [place] Neutrophils/100 WBC (Bld) 70.6 % Normal 40.0-72.0 [facility] Comment on above: Order Comment: No: D o not add to previous draw Performed By: #### 8 [id number] #### [facility] [address] [place] [address], [place] Nucleated RBC/100 WBC (Bld) [Ratio] 0 % Normal 0-0 [facility] Comment on above: Order Comment: No: D o not add to previous draw Performed By: #### 8 [id number] #### [facility] [address] [place] [address], [place] PLAT ESTIMATE Normal Normal [facility] Comment on above: Order Comment: No: D o not add to previous draw Result Comment: EDTA smear shows platelet clumping, see platelet estimate Performed By: #### 8 [id number] #### [facility] [address] [place] [address], [place] RBC (Bld) [#/Vol] 3.76 10*6/uL Low 4.20-5.70 [facility] Comment on above: Order Comment: No: D o not add to previous draw Performed By: #### 8 [id number] #### [facility] [address] [place] [address], [place] WBC (Bld) [#/Vol] 8.30 10*3/uL Normal 4.00-10.60 [facility] Comment on above: Order Comment: No: D o not add to previous draw Performed By: #### 8 [id number] #### [address] [address], [facility] POC GLUCOSE LABon 07-20-2020 Glucose [Mass/Vol] 110 mg/dL High 70-100 [facility] Comment on above: Performed By: #### 5 0103 #### [facility] [address] [place] [address], [facility] Glucose [Mass/Vol] 124 mg/dL High 70-100 [facility] Comment on above: Performed By: #### 5 0103 #### [address] [address], [facility] Glucose [Mass/Vol] 111 mg/dL High 70-100 [facility] Comment on above: Performed By: #### 5 7307, [address] #### [address] [address], [facility] PORTABLE CHEST 1 VIEWon 06-28 PORTABLE CHEST 1 VIEW [facility] Department of Radiology [address] [place] [id number] Patient Name: RASHARD LYMAN : 1960 Sex: M Age: Race: White Pt. Location: [address] [place] [address] Patient Status: I Ordered Date: 07/20/2020 6:00:00 AM Completed Date: 07/20/2020 07:53 AM Requesting Provider: DAVIS PHAM Attending Provider: SAVANNAH REYNOLDS Report Copy To: Signs & Symptoms: Post OP History: Comments: Evaluate for Effusion Exam: PORTABLE CHEST 1 VIEW PORTABLE CHEST 1 VIEW 07/20/2020 7:53 AM CLINICAL INDICATIONS: Post OP TECHNOLOGIST COMMENTS: post op evaluate for effusion QUESTION FOR THE RADIOLOGIST: Evaluate for Effusion PROTOCOL: AP(PA) view was obtained. COMPARISON: July 19, 2020 FINDINGS: Stable but significant cardiomegaly focal airspace consolidation in the lingula and left lower lobe increased since previous exam suspicious for pneumonia. There is blunting of the costophrenic angle on the left consistent with small left pleural effusion which is new. There is some pulmonary venous congestion may be some underlying CHF. This is unchanged IMPRESSION: * Stable but significant cardiomegaly * Focal airspace consolidation lingula and left lower lobe suspicious for pneumonia * New small left effusion * pulmonary venous congestion may be some underlying CHF, unchanged Electronically signed: Manuel Saldaña. Transcribed by: [email or web address], User Resident: Electronically Signed by: MANUEL SALDAÑA @ 07/20/2020 09:07 AM Normal [facility] Comment on above: Order Comment: Evalu ate for Effusion BASIC METABOLIC PANELon - Calcium [Mass/Vol] 8.4 mg/dL Low 8.6-10.3 [facility] Comment on above: Order Comment: No: D o not add to previous draw Performed By: #### 3 1943 #### [facility] [address] [place] [address], [place] Chloride [Moles/Vol] 104 mmol/L Normal 98-107 [facility] Comment on above: Order Comment: No: D o not add to previous draw Performed By: #### 3 1943 #### [facility] [address] [place] [address], [place] CO2 [Moles/Vol] 24 mmol/L Normal 21-31 [facility] Comment on above: Order Comment: No: D o not add to previous draw Performed By: #### 3 1943 #### [facility] [address] [place] [address], [place] Creatinine [Mass/Vol] 4.15 mg/dL High 0.70-1.30 [facility] Comment on above: Order Comment: No: D o not add to previous draw Performed By: #### 3 1943 #### [facility] [address] [place] [address], [place] eGFR- 18 ml/min/1.73sq m Abnormal >60 [facility] Comment on above: Order Comment: No: D o not add to previous draw Performed By: #### 3 1943 #### [facility] [address] [place] [address], [facility] eGFR- non- 15 ml/min/1.73sq m Abnormal >60 [facility] Comment on above: Order Comment: No: D o not add to previous draw Performed By: #### 3 1943 #### [facility] [address] [place] [address], [place] Glucose [Mass/Vol] 180 mg/dL High 70-100 [facility] Comment on above: Order Comment: No: D o not add to previous draw Performed By: #### 3 1943 #### [facility] [address] [place] [address], [place] Potassium [Moles/Vol] 4.4 mmol/L Normal 3.5-5.1 [facility] Comment on above: Order Comment: No: D o not add to previous draw Performed By: #### 3 1943 #### [facility] [address] [place] [address], [place] Sodium [Moles/Vol] 135 mmol/L Low 136-145 [facility] Comment on above: Order Comment: No: D o not add to previous draw Performed By: #### 3 1943 #### [facility] [address] [place] [address], [facility] Urea nitrogen [Mass/Vol] 37 mg/dL High 7-25 [facility] Comment on above: Order Comment: No: D o not add to previous draw Performed By: #### 3 194 #### [facility] [address] [place] [address], [facility] CBC COMPLETE BLOOD COUNTon 0 - Erythrocyte distribution width (RBC) [Ratio] 14.8 % Normal 11.5-15.0 [facility] Comment on above: Order Comment: No: D o not add to previous draw Performed By: #### 8 [id number] #### [facility] [address] [place] [address], [facility] Hematocrit (Bld) [Volume fraction] 30.9 % Low 39.0-50.0 [facility] Comment on above: Order Comment: No: D o not add to previous draw Performed By: #### 8 [id number] #### [facility] [address] [place] [address], [facility] Hemoglobin (Bld) [Mass/Vol] 9.0 g/dL Low 13.0-17.0 [facility] Comment on above: Order Comment: No: D o not add to previous draw Performed By: #### 8 [id number] #### [facility] [address] [place] [address], [facility] MCH (RBC) [Entitic mass] 26.6 pg Low 27.0-33.0 [facility] Comment on above: Order Comment: No: D o not add to previous draw Performed By: #### 8 [id number] #### [facility] [address] [place] [address], [facility] MCHC (RBC) [Mass/Vol] 29.1 g/dL Low 32.0-35.0 [facility] Comment on above: Order Comment: No: D o not add to previous draw Performed By: #### 8 [id number] #### [facility] [address] [facility] [address], [facility] MCV (RBC) [Entitic vol] 91.4 fL Normal 82.0-98.0 [facility] Comment on above: Order Comment: No: D o not add to previous draw Performed By: #### 8 [id number] #### [facility] [address] [facility] [place] [address], [facility] Nucleated RBC/100 WBC (Bld) [Ratio] 0 % Normal 0-0 [facility] Comment on above: Order Comment: No: D o not add to previous draw Performed By: #### 8 [id number] #### [facility] [address] [facility] [place] [address], [facility] PLAT CNT 279 10*3/uL Normal 150-400 [facility] Comment on above: Order Comment: No: D o not add to previous draw Performed By: #### 8 [id number] #### [facility] [address] [facility] [place] [address], [facility] RBC (Bld) [#/Vol] 3.38 10*6/uL Low 4.20-5.70 [facility] Comment on above: Order Comment: No: D o not add to previous draw Performed By: #### 8 [id number] #### [facility] [address] [facility] [place] [address], [facility] WBC (Bld) [#/Vol] 6.73 10*3/uL Normal 4.00-10.60 [facility] Comment on above: Order Comment: No: D o not add to previous draw Performed By: #### 8 [id number] #### [facility] [address] [facility]. [address] Operative Reporton Operative Report MR#: [id number] I [facility] Pt. Name: [facility] Room #: 3AB [id number] Discharge Date: Birthdate: 1960 OPERATIVE REPORT DATE OF SURGERY: 07/19/2020 SURGEON: Nima Wynne MD Operative Note Medical Thoracoscopy, lysis of adhesions, pleural biopsy Procedure Date: 07/19/2020 Procedure: Medical Thoracoscopy, pleural biopsies, lysis of adhesions, and chest tube placement Preoperative Diagnosis: Loculated pleural effusion Post-operative Diagnosis: same Surgeons: Nima Wynne MD Care Transition Mgr: Davis Pham MD Type of Anesthesia: MAC per anasthesia Procedure performed: The patient was brought to the OR. An appropriate time-out confirming correct patient, correct procedure, and correct site was performed. The patient was given antibiotic prophylaxis with 1 grams of Kefzol IV. The right chest was prepped and draped in sterile fashion. The area of the 6 intercostal space in the mid axillary line was infiltrated with 1% lidocaine without epinephrine. Pleural fluid was obtained with a finder needle. A 1.5-cm incision was made over the interspace. The pleural space was entered via blunt dissection and a thoracoscopy port with obturator was placed. A 10-mm Storz rigid thoracoscope was inserted through the port. 900 mL serosanguinous fluid was removed via suctioning. Examination of the pleural space demonstrated extensive adhesions. There was fair maneuverability of the scope throughout the pleural space. Pleural biopsies were obtained. Thesewere not sent for frozen section. Talc Poudragewas not done, due to the extenisve adhesions and loculations A 24French chest tube was then inserted and sutured to the skin using 0 Prolene sutures. It was then connected to PleurEvac unit. Findings: Excessive adhesions and multiple loculated fluid areas encountered. Ahesiolysis was carried out bluntly and using a grasping forceps. Mild bleeding enountered. Loculations were freed also using blunt dissection, as well as a forceps. Few pleural biopsies performed. We elected not to perform pleurodesis given the amount of adhesions. IV Fluids given intraoperatively: 500 ml EBL: Trace Complications:None apparent Specimens: Pleural biopsies Disposition/condition: PACU Post Thoracoscopy Recommendations Further recommendations: 1) Keep chest tube to suction. 2) Please continue Cefazolin 1 gms Q8 for three more doses intravenously. 3) Please use opiates for pain control judiciously. He is very sensitive to opiates. 4) Daily portable Chest X rays. 5) Hold heparin subQ for two more days. 6) Necessary orders have been placed. Nima Wynne MD Interventional Pulmonary Medicine Electronically Signed by: Nima Wynne MD 07/19/2020 02:56 P Nima Wynne MD Date Dict: 07/19/2020/02:43 P/Nima Wynne MD Date Trans: 07/19/2020 02:43 P/ [id number] cc: Jose Juarez D.O. [address] [facility] [address] Normal [facility] POC GLUCOSE LABon 07-19-2020 Glucose [Mass/Vol] 219 mg/dL High 70-100 [facility] Comment on above: Performed By: #### 5 7307, 42009 #### [facility] [address] [place] [address], [place] Glucose [Mass/Vol] 152 mg/dL High 70-100 [facility] Comment on above: Performed By: #### 5 7307, 37982 #### [facility] [address] [place] [address], [place] Glucose [Mass/Vol] 183 mg/dL High 70-100 [facility] Comment on above: Performed By: #### 5 0103 #### [facility] [address] [place] [address], [place] Glucose [Mass/Vol] 206 mg/dL High 70-100 [facility] Comment on above: Performed By: #### 8 [id number] ####[facility] [place] [address], [place] Glucose [Mass/Vol] 179 mg/dL High 70-100 [facility] Comment on above: Performed By: #### 5 0103 #### [facility] [address] [place] [address], [place] PORTABLE CHEST 1 VIEWon 06-28 PORTABLE CHEST 1 VIEW [facility] Department of Radiology [address] [place] [id number] Patient Name: RASHARD LYMAN : 1960 Sex: M Age: Race: White Pt. Location: [address] [place] [address] Patient Status: I Ordered Date: 07/19/2020 2:20:00 PM Completed Date: 07/19/2020 02:45 PM Requesting Provider: DAVIS PHAM Attending Provider: SAVANNAH REYNOLDS Report Copy To: Signs & Symptoms: Post OP History: See Comments Comments: Check Chest Tube Position Exam: PORTABLE CHEST 1 VIEW PORTABLE CHEST 1 VIEW 07/19/2020 2:45 PM CLINICAL INDICATIONS: Post OP TECHNOLOGIST COMMENTS: post op left side chest tube shortness of breath QUESTION FOR THE RADIOLOGIST: Check Chest Tube Position PROTOCOL: AP(PA) view was obtained. COMPARISON: Chest x-ray 07/15/2020 FINDINGS: There is moderate cardiomegaly likely aggravated by portable AP technique. There are worsening bilateral pulmonary consolidation. Loculated left-sided effusion along the left major fissure is less prominent compared to prior exam. There is no gross pneumothorax or mediastinal shift IMPRESSION: Worsening bilateral pulmonary consolidation and interstitial infiltration Electronically signed: Pedro Baldwin. Transcribed by: [email or web address], User Resident: PEDRO BALDWIN Electronically Signed by: PEDRO BALDWIN @ 07/19/2020 03:03 PM I personally read this/these film(s) with this resident Normal [facility] Comment on above: Order Comment: Check Chest Tube Position BASIC METABOLIC PANELon -2 Calcium [Mass/Vol] 8.4 mg/dL Low 8.6-10.3 [facility] Comment on above: Order Comment: No: D o not add to previous draw Performed By: #### 8 [id number] #### [facility] [address] [place] [address], [place] Chloride [Moles/Vol] 105 mmol/L Normal 98-107 [facility] Comment on above: Order Comment: No: D o not add to previous draw Performed By: #### 8 [id number] #### [facility] [address] [place] [address], [place] CO2 [Moles/Vol] 25 mmol/L Normal 21-31 [facility] Comment on above: Order Comment: No: D o not add to previous draw Performed By: #### 8 [id number] #### [facility] [address] [place] [address], [place] Creatinine [Mass/Vol] 4.54 mg/dL High 0.70-1.30 [facility] Comment on above: Order Comment: No: D o not add to previous draw Performed By: #### 8 [id number] #### [facility] [address] [place] [address], [place] eGFR- 16 ml/min/1.73sq m Abnormal >60 [facility] Comment on above: Order Comment: No: D o not add to previous draw Performed By: #### 8 [id number] #### [facility] [address] [place] [address], [place] eGFR- non- 13 ml/min/1.73sq m Abnormal >60 [facility] Comment on above: Order Comment: No: D o not add to previous draw Performed By: #### 8 [id number] #### [facility] [address] [place] [address], [place] Glucose [Mass/Vol] 118 mg/dL High 70-100 [facility] Comment on above: Order Comment: No: D o not add to previous draw Performed By: #### 8 [id number] #### [facility] [address] [place] [address], [facility] Potassium [Moles/Vol] 4.5 mmol/L Normal 3.5-5.1 [facility] Comment on above: Order Comment: No: D o not add to previous draw Performed By: #### 8 [id number] #### [facility] [address] [facility]. [address] Sodium [Moles/Vol] 137 mmol/L Normal 136-145 [facility] Comment on above: Order Comment: No: D o not add to previous draw Performed By: #### 8 [id number] #### [facility] [address] [facility]. [address] Urea nitrogen [Mass/Vol] 40 mg/dL High 7-25 [facility] Comment on above: Order Comment: No: D o not add to previous draw Performed By: #### 8 [id number] #### [facility] [address] [facility] [place] [address], [facility] CBC W/DIFFon 07-18-2020 ABS IMM GRANS 0.1 10*3/uL Normal 0.0-0.2 [facility] Comment on above: Order Comment: No: D o not add to previous draw Performed By: #### 8 [id number] #### [facility] [address] [facility] [place] [address], [facility] ABS NEUTROPHILS 5.0 10*3/uL Normal 1.6-7.6 [facility] Comment on above: Order Comment: No: D o not add to previous draw Performed By: #### 8 [id number] #### [facility] [address] [place] [address], [facility] Basophils (Bld) [#/Vol] 0.0 10*3/uL Normal 0.0-0.2 [facility] Comment on above: Order Comment: No: D o not add to previous draw Performed By: #### 8 [id number] #### [facility] [address] [place] [address], [facility] Basophils/100 WBC (Bld) 0.4 % Normal 0.0-1.0 [facility] Comment on above: Order Comment: No: D o not add to previous draw Performed By: #### 8 [id number] #### [facility] [address] [place] [address], [facility] Eosinophils (Bld) [#/Vol] 0.6 10*3/uL High 0.0-0.5 [facility] Comment on above: Order Comment: No: D o not add to previous draw Performed By: #### 8 [id number] #### [facility] [address] [place] [id number], [facility] Eosinophils/100 WBC (Bld) 6.8 % High 0.0-6.0 [facility] Comment on above: Order Comment: No: D o not add to previous draw Performed By: #### 8 [id number] #### [facility] [address] [facility] [place] [place] [address], [facility] Erythrocyte distribution width (RBC) [Ratio] 14.8 % Normal 11.5-15.0 [facility] Comment on above: Order Comment: No: D o not add to previous draw Performed By: #### 8 [id number] #### [facility] [address] [place] [id number], [facility] Hematocrit (Bld) [Volume fraction] 31.9 % Low 39.0-50.0 [facility] Comment on above: Order Comment: No: D o not add to previous draw Performed By: #### 8 [id number] #### [facility] [address] [place] [id number], [facility] Hemoglobin (Bld) [Mass/Vol] 9.4 g/dL Low 13.0-17.0 [facility] Comment on above: Order Comment: No: D o not add to previous draw Performed By: #### 8 [id number] #### [facility] [address] [facility] [place] [address], [facility] IMMATURE GRANS 1.7 % High 0.0-1.0 [facility] Comment on above: Order Comment: No: D o not add to previous draw Performed By: #### 8 [id number] #### [facility] [address] [facility] [place] [address], [facility] Lymphocytes (Bld) [#/Vol] 1.2 10*3/uL Normal 1.2-4.0 [facility] Comment on above: Order Comment: No: D o not add to previous draw Performed By: #### 8 [id number] #### [facility] [address] [facility] [place] [address], [facility] Lymphocytes/100 WBC (Bld) 14.8 % Low 20.0-45.0 [facility] Comment on above: Order Comment: No: D o not add to previous draw Performed By: #### 8 [id number] #### [facility] [address] [facility] [place] [address], [facility] MCH (RBC) [Entitic mass] 26.9 pg Low 27.0-33.0 [facility] Comment on above: Order Comment: No: D o not add to previous draw Performed By: #### 8 [id number] #### [facility] [address] [facility] [place] [address], [facility] MCHC (RBC) [Mass/Vol] 29.5 g/dL Low 32.0-35.0 [facility] Comment on above: Order Comment: No: D o not add to previous draw Performed By: #### 8 [id number] #### [facility] [address] [place] [id number], [facility] MCV (RBC) [Entitic vol] 91.1 fL Normal 82.0-98.0 [facility] Comment on above: Order Comment: No: D o not add to previous draw Performed By: #### 8 [id number] #### [facility] [address] [place] [address], [facility] Monocytes (Bld) [#/Vol] 1.1 10*3/uL High 0.1-1.0 [facility] Comment on above: Order Comment: No: D o not add to previous draw Performed By: #### 8 [id number] #### [facility] [address] [place] [address], [facility] MONOS 13.4 % High 5.0-12.0 [facility] Comment on above: Order Comment: No: D o not add to previous draw Performed By: #### 8 [id number] #### [facility] [address] [facility] [place] [place] [address], [facility] Neutrophils/100 WBC (Bld) 62.9 % Normal 40.0-72.0 [facility] Comment on above: Order Comment: No: D o not add to previous draw Performed By: #### 8 [id number] #### [facility] [address] [facility] [place] [address], [facility] Nucleated RBC/100 WBC (Bld) [Ratio] 0 % Normal 0-0 [facility] Comment on above: Order Comment: No: D o not add to previous draw Performed By: #### 8 [id number] #### [facility] [address] [facility] [place] [address], [facility] PLAT CNT 296 10*3/uL Normal 150-400 [facility] Comment on above: Order Comment: No: D o not add to previous draw Performed By: #### 8 [id number] #### [facility] [address] [facility] [place] [address], [facility] RBC (Bld) [#/Vol] 3.50 10*6/uL Low 4.20-5.70 [facility] Comment on above: Order Comment: No: D o not add to previous draw Performed By: #### 8 [id number] #### [facility] [address] [place] [address], [place] WBC (Bld) [#/Vol] 8.03 10*3/uL Normal 4.00-10.60 [facility] Comment on above: Order Comment: No: D o not add to previous draw Performed By: #### 8 [id number] #### [facility] [address] [place] [address], [place] POC GLUCOSE LABon 07-18-2020 Glucose [Mass/Vol] 192 mg/dL High 70-100 [facility] Comment on above: Performed By: #### 5 [id number], [id number] #### [facility] [address] [place] [address], [place] Glucose [Mass/Vol] 153 mg/dL High 70-100 [facility] Comment on above: Performed By: #### 5 [id number], [id number] #### [facility] [address] [place] [address], [place] Glucose [Mass/Vol] 80 mg/dL Normal 70-100 [facility] Comment on above: Performed By: #### 5 [id number], [id number] #### [facility] [address] [place] [address], [place] Glucose [Mass/Vol] 48 mg/dL Critically low 70-100 [facility] Comment on above: Order Comment: Left Peural Effusion Performed By: #### 8 [id number] ####[facility] [place] [address], [place] Glucose [Mass/Vol] 120 mg/dL High 70-100 [facility] Comment on above: Performed By: #### 5 0103 #### [facility] [address] [place] [address], [place] Glucose [Mass/Vol] 112 mg/dL High 70-100 [facility] Comment on above: Performed By: #### 5 [id number], [id number] #### [facility] [address] [facility] POC SARS COV2 ANTIGEN NEGATI VEon 07-18-2020 POC SARS COV2 ANTIGEN NEG CANCELED Normal NEGATIVE [facility] Comment on above: Result Comment: The released value NEGATIVE was canceled by ULISES on 07/19/2020 07:11 Performed By: #### 3 1944 #### [facility] [address] POC SARS COV2 ANTIGEN NEG Negative Normal NEGATIVE [facility] Comment on above: Result Comment: Nega tive Results are presumptive and confirmation with a molecular assay, if necessary, for patient management may be performed. Negative results do not rule out SARS-CoV-2 infection and should not be used as the sole basis for treatment or patient management decisions, including infection control decisions. Negative results should be considered in the context of a patient?s recent exposures, history and the presence of clinical signs and symptoms consistent with COVID-19. The [employer] COVID-19 Antigen test is a lateral flow immunochromatographic assay intended for the qualitative detection of the nucleocapsid protein antigen from SARS-CoV-2 in nasopharyngeal or anterior nasal swab specimens directly collected from individuals suspected of COVID-19 by their healthcare provider within five days of symptom onset. Testing is limited to laboratories certified under the Clinical Laboratory Improvement Amendments of 1988 (CLIA), 42 U.S.C. ???262a, that meet the requirements to perform moderate, high or waved complexity tests. This test is authorized for use at the Point of Care (POC), i.e., in patient care settings operating under a CLIA Certificate of Waiver, Certificate of Compliance, or Certificate of Accreditation. Performed By: #### 8 [id number] #### [facility] [address] BASIC METABOLIC PANELon 06-28 Calcium [Mass/Vol] 8.2 mg/dL Low 8.6-10.3 [facility] Comment on above: Order Comment: No: D o not add to previous draw Performed By: #### 3 1943 #### [facility] [address] [place] [address], [place] Chloride [Moles/Vol] 101 mmol/L Normal 98-107 [facility] Comment on above: Order Comment: No: D o not add to previous draw Performed By: #### 3 1943 #### [facility] [address] [place] [address], [place] CO2 [Moles/Vol] 25 mmol/L Normal 21-31 [facility] Comment on above: Order Comment: No: D o not add to previous draw Performed By: #### 3 1943 #### [facility] [address] [place] [address], [place] Creatinine [Mass/Vol] 3.64 mg/dL High 0.70-1.30 [facility] Comment on above: Order Comment: No: D o not add to previous draw Performed By: #### 3 1943 #### [facility] [address] [place] [address], [place] eGFR- 21 ml/min/1.73sq m Abnormal >60 [facility] Comment on above: Order Comment: No: D o not add to previous draw Performed By: #### 3 1943 #### [facility] [address] [place] [address], [place] eGFR- non- 17 ml/min/1.73sq m Abnormal >60 [facility] Comment on above: Order Comment: No: D o not add to previous draw Performed By: #### 3 1943 #### [facility] [address] [place] [address], [place] Glucose [Mass/Vol] 124 mg/dL High 70-100 [facility] Comment on above: Order Comment: No: D o not add to previous draw Performed By: #### 3 1943 #### [facility] [address] [place] [address], [place] Potassium [Moles/Vol] 4.3 mmol/L Normal 3.5-5.1 [facility] Comment on above: Order Comment: No: D o not add to previous draw Performed By: #### 3 1943 #### [facility] [address] [place] [id number], [facility] Sodium [Moles/Vol] 134 mmol/L Low 136-145 [facility] Comment on above: Order Comment: No: D o not add to previous draw Performed By: #### 3 1943 #### [facility] [address] [place] [address], [facility] Urea nitrogen [Mass/Vol] 36 mg/dL High 7-25 [facility] Comment on above: Order Comment: No: D o not add to previous draw Performed By: #### 3 1943 #### [facility] [address] [facility] [place] [address], [facility] CBC W/DIFFon 07-17-2020 ABS IMM GRANS 0.2 10*3/uL Normal 0.0-0.2 [facility] Comment on above: Order Comment: No: D o not add to previous draw Performed By: #### 8 [id number] #### [facility] [address] [place] [address], [facility] ABS NEUTROPHILS 5.8 10*3/uL Normal 1.6-7.6 [facility] Comment on above: Order Comment: No: D o not add to previous draw Performed By: #### 8 [id number] #### [facility] [address] [place] [address], [facility] Basophils (Bld) [#/Vol] 0.1 10*3/uL Normal 0.0-0.2 [facility] Comment on above: Order Comment: No: D o not add to previous draw Performed By: #### 8 [id number] #### [facility] [address] [place] [address], [facility] Basophils/100 WBC (Bld) 0.6 % Normal 0.0-1.0 [facility] Comment on above: Order Comment: No: D o not add to previous draw Performed By: #### 8 [id number] #### [facility] [address] [place] [address], [facility] Eosinophils (Bld) [#/Vol] 0.6 10*3/uL High 0.0-0.5 [facility] Comment on above: Order Comment: No: D o not add to previous draw Performed By: #### 8 [id number] #### [facility] [address] [place] [address], [facility] Eosinophils/100 WBC (Bld) 7.0 % High 0.0-6.0 [facility] Comment on above: Order Comment: No: D o not add to previous draw Performed By: #### 8 [id number] #### [facility] [address] [place] [address], [facility] Erythrocyte distribution width (RBC) [Ratio] 14.8 % Normal 11.5-15.0 [facility] Comment on above: Order Comment: No: D o not add to previous draw Performed By: #### 8 [id number] #### [facility] [address] [place] [address], [facility] Hematocrit (Bld) [Volume fraction] 30.0 % Low 39.0-50.0 [facility] Comment on above: Order Comment: No: D o not add to previous draw Performed By: #### 8 [id number] #### [facility] [address] [place] [id number], [facility] Hemoglobin (Bld) [Mass/Vol] 9.2 g/dL Low 13.0-17.0 [facility] Comment on above: Order Comment: No: D o not add to previous draw Performed By: #### 8 [id number] #### [facility] [address] [place] [id number], [facility] IMMATURE GRANS 1.7 % High 0.0-1.0 [facility] Comment on above: Order Comment: No: D o not add to previous draw Performed By: #### 8 [id number] #### [facility] [address] [place] [address], [facility] Lymphocytes (Bld) [#/Vol] 1.3 10*3/uL Normal 1.2-4.0 [facility] Comment on above: Order Comment: No: D o not add to previous draw Performed By: #### 8 [id number] #### [facility] [address] [facility] [place] [address], [facility] Lymphocytes/100 WBC (Bld) 14.3 % Low 20.0-45.0 [facility] Comment on above: Order Comment: No: D o not add to previous draw Performed By: #### 8 [id number] #### [facility] [address] [facility] [place] [address], [facility] MCH (RBC) [Entitic mass] 27.3 pg Normal 27.0-33.0 [facility] Comment on above: Order Comment: No: D o not add to previous draw Performed By: #### 8 [id number] #### [facility] [address] [facility] [place] [address], [facility] MCHC (RBC) [Mass/Vol] 30.7 g/dL Low 32.0-35.0 [facility] Comment on above: Order Comment: No: D o not add to previous draw Performed By: #### 8 [id number] #### [facility] [address] [facility] [place] [address], [facility] MCV (RBC) [Entitic vol] 89.0 fL Normal 82.0-98.0 [facility] Comment on above: Order Comment: No: D o not add to previous draw Performed By: #### 8 [id number] #### [facility] [address] [place] [address], [facility] Monocytes (Bld) [#/Vol] 1.0 10*3/uL Normal 0.1-1.0 [facility] Comment on above: Order Comment: No: D o not add to previous draw Performed By: #### 8 [id number] #### [facility] [address] [place] [id number], [facility] MONOS 10.9 % Normal 5.0-12.0 [facility] Comment on above: Order Comment: No: D o not add to previous draw Performed By: #### 8 [id number] #### [facility] [address] [place] [address], [facility] Neutrophils/100 WBC (Bld) 65.5 % Normal 40.0-72.0 [facility] Comment on above: Order Comment: No: D o not add to previous draw Performed By: #### 8 [id number] #### [facility] [address] [place] [id number], [facility] Nucleated RBC/100 WBC (Bld) [Ratio] 0 % Normal 0-0 [facility] Comment on above: Order Comment: No: D o not add to previous draw Performed By: #### 8 [id number] #### [facility] [address] [place] [address], [place] PLAT CNT 293 10*3/uL Normal 150-400 [facility] Comment on above: Order Comment: No: D o not add to previous draw Performed By: #### 8 [id number] #### [facility] [address] [place] [address], [facility] RBC (Bld) [#/Vol] 3.37 10*6/uL Low 4.20-5.70 [facility] Comment on above: Order Comment: No: D o not add to previous draw Performed By: #### 8 [id number] #### [facility] [address] [place] [address], [place] WBC (Bld) [#/Vol] 8.86 10*3/uL Normal 4.00-10.60 [facility] Comment on above: Order Comment: No: D o not add to previous draw Performed By: #### 8 [id number] #### [facility] [address] [place] [address], [place] POC GLUCOSE LABon 07-17-2020 Glucose [Mass/Vol] 101 mg/dL High 70-100 [facility] Comment on above: Performed By: #### 5 [id number], [id number] #### [facility] [address] [place] [address], [place] Glucose [Mass/Vol] 76 mg/dL Normal 70-100 [facility] Comment on above: Performed By: #### 5 7307, 62305 #### [facility] [address] [place] [address], [place] Glucose [Mass/Vol] 75 mg/dL Normal 70-100 [facility] Comment on above: Performed By: #### 8 [id number] ####[facility] [place] [address], [place] Glucose [Mass/Vol] 198 mg/dL High 70-100 [facility] Comment on above: Performed By: #### 8 [id number] ####[facility] [place] [address], [place] Glucose [Mass/Vol] 205 mg/dL High 70-100 [facility] Comment on above: Performed By: #### 3 0318 #### [facility] [address] [place] [address], [place] Glucose [Mass/Vol] 187 mg/dL High 70-100 [facility] Comment on above: Performed By: #### 5 [id number], 47758 #### [facility] [address] [place] [address], [place] Glucose [Mass/Vol] 131 mg/dL High 70-100 [facility] Comment on above: Performed By: #### 8 [id number] #### [facility] [address] [place] [address], [facility] Glucose [Mass/Vol] 75 mg/dL Normal 70-100 [facility] Comment on above: Performed By: #### 5 0103 #### [facility] [address] [place] [address], [place] Glucose [Mass/Vol] 69 mg/dL Low 70-100 [facility] Comment on above: Performed By: #### 8 [id number] ####[facility] [place] [address], [facility] BASIC METABOLIC PANELon 03-2 Calcium [Mass/Vol] 8.4 mg/dL Low 8.6-10.3 [facility] Comment on above: Order Comment: No: D o not add to previous draw Performed By: #### 3 1943 #### [facility] [address] [place] [address], [place] Chloride [Moles/Vol] 105 mmol/L Normal 98-107 [facility] Comment on above: Order Comment: No: D o not add to previous draw Performed By: #### 3 1943 #### [facility] [address] [place] [address], [facility] CO2 [Moles/Vol] 24 mmol/L Normal 21-31 [facility] Comment on above: Order Comment: No: D o not add to previous draw Performed By: #### 3 1943 #### [facility] [address] [place] [address], [place] Creatinine [Mass/Vol] 4.14 mg/dL High 0.70-1.30 [facility] Comment on above: Order Comment: No: D o not add to previous draw Performed By: #### 3 1943 #### [facility] [address] [place] [address], [facility] eGFR- 18 ml/min/1.73sq m Abnormal >60 [facility] Comment on above: Order Comment: No: D o not add to previous draw Performed By: #### 3 1943 #### [facility] [address] [place] [address], [facility] eGFR- non- 15 ml/min/1.73sq m Abnormal >60 [facility] Comment on above: Order Comment: No: D o not add to previous draw Performed By: #### 3 1943 #### [facility] [address] [place] [address], [place] Glucose [Mass/Vol] 127 mg/dL High 70-100 [facility] Comment on above: Order Comment: No: D o not add to previous draw Performed By: #### 3 1943 #### [facility] [address] [place] [address], [place] Potassium [Moles/Vol] 4.0 mmol/L Normal 3.5-5.1 [facility] Comment on above: Order Comment: No: D o not add to previous draw Performed By: #### 3 1943 #### [facility] [address] [place] [address], [place] Sodium [Moles/Vol] 136 mmol/L Normal 136-145 [facility] Comment on above: Order Comment: No: D o not add to previous draw Performed By: #### 3 1943 #### [facility] [address] [place] [address], [place] Urea nitrogen [Mass/Vol] 35 mg/dL High 7-25 [facility] Comment on above: Order Comment: No: D o not add to previous draw Performed By: #### 3 1943 #### [facility] [address] [place] [address], [facility] CBC COMPLETE BLOOD COUNTon 0 - Erythrocyte distribution width (RBC) [Ratio] 14.6 % Normal 11.5-15.0 [facility] Comment on above: Order Comment: No: D o not add to previous draw Performed By: #### 8 [id number] #### [facility] [address] [place] [address], [facility] Hematocrit (Bld) [Volume fraction] 31.8 % Low 39.0-50.0 [facility] Comment on above: Order Comment: No: D o not add to previous draw Performed By: #### 8 [id number] #### [facility] [address] [place] [address], [facility] Hemoglobin (Bld) [Mass/Vol] 9.7 g/dL Low 13.0-17.0 [facility] Comment on above: Order Comment: No: D o not add to previous draw Performed By: #### 8 [id number] #### [facility] [address] [facility] [place] [id number], [facility] MCH (RBC) [Entitic mass] 27.2 pg Normal 27.0-33.0 [facility] Comment on above: Order Comment: No: D o not add to previous draw Performed By: #### 8 [id number] #### [facility] [address] [facility] [place] [address], [facility] MCHC (RBC) [Mass/Vol] 30.5 g/dL Low 32.0-35.0 [facility] Comment on above: Order Comment: No: D o not add to previous draw Performed By: #### 8 [id number] #### [facility] [address] [facility] [place] [address], [facility] MCV (RBC) [Entitic vol] 89.3 fL Normal 82.0-98.0 [facility] Comment on above: Order Comment: No: D o not add to previous draw Performed By: #### 8 [id number] #### [facility] [address] [facility] [place] [address], [facility] Nucleated RBC/100 WBC (Bld) [Ratio] 0 % Normal 0-0 [facility] Comment on above: Order Comment: No: D o not add to previous draw Performed By: #### 8 [id number] #### [facility] [address] [place] [address], [place] PLAT CNT 321 10*3/uL Normal 150-400 [facility] Comment on above: Order Comment: No: D o not add to previous draw Performed By: #### 8 [id number] #### [facility] [address] [place] [address], [place] RBC (Bld) [#/Vol] 3.56 10*6/uL Low 4.20-5.70 [facility] Comment on above: Order Comment: No: D o not add to previous draw Performed By: #### 8 [id number] #### [facility] [address] [place] [address], [place] WBC (Bld) [#/Vol] 8.88 10*3/uL Normal 4.00-10.60 [facility] Comment on above: Order Comment: No: D o not add to previous draw Performed By: #### 8 [id number] #### [facility] [address] [place] [address], [place] POC GLUCOSE LABon 07-16-2020 Glucose [Mass/Vol] 94 mg/dL Normal 70-100 [facility] Comment on above: Performed By: #### 5 0103 #### [facility] [address] [place] [address], [place] Glucose [Mass/Vol] 62 mg/dL Low 70-100 [facility] Comment on above: Performed By: #### 5 [id number], 87052 #### [facility] [address] [place] [address], [place] Glucose [Mass/Vol] 80 mg/dL Normal 70-100 [facility] Comment on above: Performed By: #### 5 7307, 10087 #### [facility] [address] [place] [address], [place] Glucose [Mass/Vol] 99 mg/dL Normal 70-100 [facility] Comment on above: Performed By: #### 8 [id number] ####[facility] [place] [address], [facility] Glucose [Mass/Vol] 203 mg/dL High 70-100 [facility] Comment on above: Performed By: #### 8 [id number] ####[facility] [place] [address], [facility] Glucose [Mass/Vol] 151 mg/dL High 70-100 [facility] Comment on above: Performed By: #### 5 [id number], [id number] #### [facility] [address] [place] [address], [facility] ANAon 07-15-2020 KILLIAN SCREEN <1:40 Normal <1:40,1:40 [facility] Comment on above: Order Comment: No: D o not add to previous draw Performed By: #### 8 [id number] #### [facility] [address] [place] [address], [facility] ANCA IGG WITH REFLEX [id number] on 07-15-2020 ANCA <1:20 Normal <1:20 [facility] Comment on above: Order Comment: No: D o not add to previous draw Result Comment: The ANCA IFA is <1:20; therefore, no further testing will be performed. INTERPRETIVE INFORMATION: Anti-Neutrophil Cyto Ab, IgG Neutrophil Cytoplasmic Antibodies (C-ANCA = granular cytoplasmic staining, P-ANCA = perinuclear staining) are found in the serum of over 90 percent of patients with certain necrotizing systemic vasculitides, and usually in less than 5 percent of patients with collagen vascular disease or arthritis. Performed By: [facility] [address] [place] [address] [address]: Emi Campbell MD BASIC METABOLIC PANELon 06-27 Calcium [Mass/Vol] 8.5 mg/dL Low 8.6-10.3 [facility] Comment on above: Order Comment: No: D o not add to previous draw Performed By: #### 8 [id number] #### [facility] [address] [place] [address], [place] Chloride [Moles/Vol] 103 mmol/L Normal 98-107 [facility] Comment on above: Order Comment: No: D o not add to previous draw Performed By: #### 8 [id number] #### [facility] [address] [place] [address], [place] CO2 [Moles/Vol] 23 mmol/L Normal 21-31 [facility] Comment on above: Order Comment: No: D o not add to previous draw Performed By: #### 8 [id number] #### [facility] [address] [place] [address], [place] Creatinine [Mass/Vol] 4.38 mg/dL High 0.70-1.30 [facility] Comment on above: Order Comment: No: D o not add to previous draw Performed By: #### 8 [id number] #### [facility] [address] [place] [address], [place] eGFR- 17 ml/min/1.73sq m Abnormal >60 [facility] Comment on above: Order Comment: No: D o not add to previous draw Performed By: #### 8 [id number] #### [facility] [address] [place] [address], [place] eGFR- non- 14 ml/min/1.73sq m Abnormal >60 [facility] Comment on above: Order Comment: No: D o not add to previous draw Performed By: #### 8 [id number] #### [facility] [address] [place] [address], [place] Glucose [Mass/Vol] 154 mg/dL High 70-100 [facility] Comment on above: Order Comment: No: D o not add to previous draw Performed By: #### 8 [id number] #### [facility] [address] [place] [address], [place] Potassium [Moles/Vol] 4.5 mmol/L Normal 3.5-5.1 [facility] Comment on above: Order Comment: No: D o not add to previous draw Performed By: #### 8 [id number] #### [facility] [address] Sodium [Moles/Vol] 135 mmol/L Low 136-145 [facility] Comment on above: Order Comment: No: D o not add to previous draw Performed By: #### 8 [id number] #### [facility] [address] Urea nitrogen [Mass/Vol] 32 mg/dL High 7-25 [facility] Comment on above: Order Comment: No: D o not add to previous draw Performed By: #### 8 [id number] #### [facility] [address] [facility] C REACTIVE PROTEINon 021 CRP [Mass/Vol] 138.0 mg/L High 0.0-7.0 [facility] Comment on above: Order Comment: FROM [id number] Performed By: #### 8 [id number] #### [facility] [address] CBC W/DIFFon 07-15-2020 ABS IMM GRANS 0.1 10*3/uL Normal 0.0-0.2 [facility] Comment on above: Performed By: #### 5 3 #### [facility] 3000 [facility]. [address] ABS NEUTROPHILS 7.3 10*3/uL Normal 1.6-7.6 [facility] Comment on above: Performed By: #### 5 3 #### [facility] [address] [place] [address], [facility] Basophils (Bld) [#/Vol] 0.0 10*3/uL Normal 0.0-0.2 [facility] Comment on above: Performed By: #### 5 3 #### [facility] [address] [place] [address], [facility] Basophils/100 WBC (Bld) 0.3 % Normal 0.0-1.0 [facility] Comment on above: Performed By: #### 5 0103 #### [facility] [address] [facility] [place] [address], [facility] Eosinophils (Bld) [#/Vol] 0.5 10*3/uL Normal 0.0-0.5 [facility] Comment on above: Performed By: #### 5 0103 #### [facility] [address] [facility] [place] [address], [facility] Eosinophils/100 WBC (Bld) 5.1 % Normal 0.0-6.0 [facility] Comment on above: Performed By: #### 3 #### [facility] [address] Erythrocyte distribution width (RBC) [Ratio] 14.9 % Normal 11.5-15.0 [facility] Comment on above: Performed By: #### 5 0103 #### [facility] [address] Hematocrit (Bld) [Volume fraction] 33.0 % Low 39.0-50.0 [facility] Comment on above: Performed By: #### 5 3 #### [facility] [address] [place] [address], [facility] Hemoglobin (Bld) [Mass/Vol] 9.9 g/dL Low 13.0-17.0 [facility] Comment on above: Performed By: #### 5 0103 #### [facility] [address] [place] [address], [facility] IMMATURE GRANS 1.4 % High 0.0-1.0 [facility] Comment on above: Performed By: #### 5 3 #### [facility] [address] Lymphocytes (Bld) [#/Vol] 1.1 10*3/uL Low 1.2-4.0 [facility] Comment on above: Performed By: #### 5 0103 #### [facility] [address] Lymphocytes/100 WBC (Bld) 11.0 % Low 20.0-45.0 [facility] Comment on above: Performed By: #### 5 0103 #### [facility] [address] MCH (RBC) [Entitic mass] 27.0 pg Normal 27.0-33.0 [facility] Comment on above: Performed By: #### 5 3 #### [facility] [address] MCHC (RBC) [Mass/Vol] 30.0 g/dL Low 32.0-35.0 [facility] Comment on above: Performed By: #### 3 #### [facility] [address] [place] [address], [facility] MCV (RBC) [Entitic vol] 90.2 fL Normal 82.0-98.0 [facility] Comment on above: Performed By: #### 5 3 #### [facility] [address] [place] [address], [facility] Monocytes (Bld) [#/Vol] 1.1 10*3/uL High 0.1-1.0 [facility] Comment on above: Performed By: #### 5 3 #### [facility] [address] [place] [address], [facility] MONOS 10.9 % Normal 5.0-12.0 [facility] Comment on above: Performed By: #### 5 3 #### [facility] [address] [place] [address], [facility] Neutrophils/100 WBC (Bld) 71.3 % Normal 40.0-72.0 [facility] Comment on above: Performed By: #### 5 0103 #### [facility] [address] [place] [id number], [facility] Nucleated RBC/100 WBC (Bld) [Ratio] 0 % Normal 0-0 [facility] Comment on above: Performed By: #### 5 0103 #### [facility] [address] [place] [id number], [facility] PLAT CNT 317 10*3/uL Normal 150-400 [facility] Comment on above: Performed By: #### 5 3 #### [facility] [address] [place] [address], [facility] RBC (Bld) [#/Vol] 3.66 10*6/uL Low 4.20-5.70 [facility] Comment on above: Performed By: #### 5 0103 #### [facility] [address] [facility] [place] [address], [facility] WBC (Bld) [#/Vol] 10.23 10*3/uL Normal 4.00-10.60 [facility] Comment on above: Performed By: #### 5 0103 #### [facility] [address] [facility] [place] [address], [facility] COMPLEMENT 307-15-2020 COMPLEMENT 3 108 mg/dL Normal 79-152 [facility] Comment on above: Order Comment: No: D o not add to previous draw Performed By: #### 8 [id number] #### [facility] [address] [place] [address], [facility] COMPLEMENT 407-15-2020 COMPLEMENT 4 31 mg/dL Normal 16-38 [facility] Comment on above: Order Comment: No: D o not add to previous draw Performed By: #### 8 [id number] #### [facility] [address] [place] [address], [facility] GLOMR BASMT MEMBRon 07-16-19 21 GLOMR BASMT MBRN Negative Abnormal NEGATIVE [facility] Comment on above: Order Comment: No: D o not add to previous draw Result Comment: Note : The performance characteristics of this test were validated by the [facility] Immunology laboratory. It has not been cleared or approved by the U.S. Food and Drug Administration. The results are not intended to be used as the sole means for clinical diagnosis or patient management decisions. [facility]'s Immunology lab is authorized under CLIA to perform high-complexity testing. Performed By: #### 8 [id number] #### [facility] [address] [place] [address], [facility] POC GLUCOSE LABon 07-15-2020 Glucose [Mass/Vol] 107 mg/dL High 70-100 [facility] Comment on above: Performed By: #### 5 7307, 76451 #### [facility] [address] [place] [address], [facility] Glucose [Mass/Vol] 84 mg/dL Normal 70-100 [facility] Comment on above: Performed By: #### 5 0103 #### [facility] [address] [place] [address], [facility] Glucose [Mass/Vol] 164 mg/dL High 70-100 [facility] Comment on above: Performed By: #### 8 [id number] ####[facility] [place] [address], [facility] Glucose [Mass/Vol] 141 mg/dL High 70-100 [facility] Comment on above: Performed By: #### 5 7307, 07064 #### [facility] [address] [place] [address], [facility] PORTABLE CHEST 1 VIEWon 06-27 PORTABLE CHEST 1 VIEW [facility] Department of Radiology [address] [place] [id number] Patient Name: RASHARD LYMAN : 1960 Sex: M Age: Race: White Pt. Location: [address] [place] [address] Patient Status: I Ordered Date: 07/15/2020 7:00:00 AM Completed Date: 07/15/2020 07:18 AM Requesting Provider: SAVANNAH REYNODLS Attending Provider: SAVANNAH REYNOLDS Report Copy To: Signs & Symptoms: Post Thoracentesis History: Comments: evaluate for Effusion Exam: PORTABLE CHEST 1 VIEW PORTABLE CHEST 1 VIEW 07/15/2020 7:18 AM CLINICAL INDICATIONS: Post Thoracentesis TECHNOLOGIST COMMENTS: Post Thoracentesis QUESTION FOR THE RADIOLOGIST: evaluate for Effusion PROTOCOL: AP(PA) view was obtained. COMPARISON: July 14, 2020. FINDINGS: No pneumothorax is identified. Left-sided apical pleural capping, left midlung field linear atelectasis and opacification in the left base consistent with lower lobe consolidation and residual pleural effusion remain. The right lung remains clear. The heart is enlarged and the trachea. IMPRESSION: No pneumothorax. Findings in the left hemithorax unchanged from prior exam. Electronically signed: Nir Swartz. Transcribed by: [email or web address], User Resident: Electronically Signed by: NIR SWARTZ @ 07/15/2020 07:34 AM Normal [facility] Comment on above: Order Comment: evalu ate for Effusion *AFB CULTUREon 07-14-2020 *AFB CULTURE Clinical Report: (D) Specimen/Source: FLUID/PLEURAL FLUID Collected: 07/14/2020 13:03 Status: Final Last Updated: 08/26/2020 08:52 (1) Left Peural Effusion AFB (Final) No Acid Fast Bacilli Seen CULT RES (Final) No growth after 42 days of incubation Normal [facility] Comment on above: Order Comment: Left Peural Effusion Performed By: #### 8 [id number] #### [facility] [address] [place], [place] [address] [place] [address] *ANAEROBIC CULTUREon 021 *ANAEROBIC CULTURE Clinical Report: (D) Specimen/Source: FLUID/PLEURAL FLUID Collected: 07/14/2020 13:03 Status: Final Last Updated: 07/19/2020 08:08 (1) Left Peural Effusion CULT RES (Final) No Anaerobes Isolated 5 Days Normal [facility] Comment on above: Order Comment: Left Peural Effusion Performed By: #### 8 [id number] #### [facility] [address] [place] [address], [facility] *BODY FLUID CULTUREon 2020 *BODY FLUID CULTURE Clinical Report: (D) Specimen/Source: FLUID/PLEURAL FLUID Collected: 07/14/2020 13:03 Status: Final Last Updated: 07/19/2020 07:53 (1) Left Peural Effusion GRAM (Final) Polys PRESENT No Bacteria Seen CYTOSPUN (Final) This Gram Stain was done on a cytocentrifuged specimen CULT RES (Final) No Growth Day 5 Normal [facility] Comment on above: Order Comment: Left Peural Effusion Performed By: #### 3 0318 #### [facility] [address] [place] [address], [facility] *FUNGAL CULTUREon 07-14-2020 *FUNGAL CULTURE Clinical Report: (D) Specimen/Source: FLUID/PLEURAL FLUID Collected: 07/14/2020 13:03 Status: Final Last Updated: 08/15/2020 08:41 (1) Left Peural Effusion FS (Final) No Yeast or Fungal Elements Seen CULT RES (Final) Culture negative for fungus Normal [facility] Comment on above: Order Comment: Left Peural Effusion Performed By: #### 8 [id number] #### [facility] [address] [place], [place] [address] *VIRAL NON RESPIRATORY CULTU REon 07-14-2020 Bacteria identified Cx Nom (Unsp spec) Normal [facility] Comment on above: Order Comment: Left Peural Effusion Result Comment: NEGA TIVE. No Herpes Simplex Virus detected by Enzyme Linked Virus Inducible System culture. at day 2 NEGATIVE for Influenza A and B, Para influenza 1,2,3, Adenovirus and RSV. at day 2 Negative results do not preclude respiratory virus infection and should not be used as the sole basis for diagnosis, treatment or other management decisions. NEGATIVE for Cytomegalovirus at day 3 NEGATIVE for Enterovirus at day 5 Result changed by IF on 07/17/2020 14:17. The previous value was NEGATIVE. No Herpes Simplex Virus detected by Enzyme Linked Virus Inducible S. Result changed by IF on 07/18/2020 12:17. The previous value was NEGATIVE. No Herpes Simplex Virus detected by Enzyme Linked Virus Inducible S. Result changed by IF on 07/20/2020 14:10. The previous value was NEGATIVE. No Herpes Simplex Virus detected by Enzyme Linked Virus Inducible S. [place] Normal [facility] Comment on above: Order Comment: Left Peural Effusion Result Comment: Test Performed by [facility] [address] - Released 07/20/2020 14:10 Result changed by IF on 07/17/2020 14:17. The previous value was Test Performed by [facility] [phone].. Result changed by IF on 07/18/2020 12:17. The previous value was Test Performed by [facility] [phone].. Result changed by IF on 07/20/2020 14:10. The previous value was Test Performed by [address] [address] [phone].. REPORT STATUS FINAL 07/20/2020 Normal [facility] Comment on above: Order Comment: Left Peural Effusion Result Comment: Resu lt changed by IF on 07/20/2020 14:10. The previous value was Preliminary. APTTon 07-14-2020 aPTT Coag (Bld) [Time] 41.7 s High 25.0-35.0 [facility] Comment on above: Order Comment: No: D o not add to previous drawCouldn't get a full blue tube Result Comment: ALL RESULTS MUST BE INTERPRETED WITH RESPECT TO BLOOD DRAWING ARTIFACT OR DILUTION ERROR OF ANTICOAGULANT AT THE TIME OF SAMPLING. THE APTT SHOULD NOT BE USED TO MONITOR UNFRACTIONATED HEPARIN THERAPY, THIS LABORATORY NO LONGER HAS AN ESTABLISHED THERAPEUTIC RANGE BASED ON THE APTT. IT IS RECOMMENDED THAT THE UFH - HEPARIN ASSAY (ANTI-XA ACTIVITY) BE USED FOR THIS PURPOSE. Performed By: #### 8 [id number] #### [facility] [address] [place] [address], [facility] aPTT Coag (Bld) [Time] 44.9 s High 25.0-35.0 [facility] Comment on above: Order Comment: No: D o not add to previous draw Result Comment: ALL RESULTS MUST BE INTERPRETED WITH RESPECT TO BLOOD DRAWING ARTIFACT OR DILUTION ERROR OF ANTICOAGULANT AT THE TIME OF SAMPLING. THE APTT SHOULD NOT BE USED TO MONITOR UNFRACTIONATED HEPARIN THERAPY, THIS LABORATORY NO LONGER HAS AN ESTABLISHED THERAPEUTIC RANGE BASED ON THE APTT. IT IS RECOMMENDED THAT THE UFH - HEPARIN ASSAY (ANTI-XA ACTIVITY) BE USED FOR THIS PURPOSE. Performed By: #### 5 7307, 12512 #### [facility] [address] [place] [address], [facility] BASIC METABOLIC PANELon - Calcium [Mass/Vol] 8.6 mg/dL Normal 8.6-10.3 [facility] Comment on above: Order Comment: No: D o not add to previous draw Performed By: #### 8 [id number] #### [facility] [address] [place] [address], [place] Chloride [Moles/Vol] 102 mmol/L Normal 98-107 [facility] Comment on above: Order Comment: No: D o not add to previous draw Performed By: #### 8 [id number] #### [facility] [address] [place] [address], [place] CO2 [Moles/Vol] 24 mmol/L Normal 21-31 [facility] Comment on above: Order Comment: No: D o not add to previous draw Performed By: #### 8 [id number] #### [facility] [address] [place] [address], [place] Creatinine [Mass/Vol] 3.44 mg/dL High 0.70-1.30 [facility] Comment on above: Order Comment: No: D o not add to previous draw Performed By: #### 8 [id number] #### [facility] [address] [place] [address], [facility] eGFR- 22 ml/min/1.73sq m Abnormal >60 [facility] Comment on above: Order Comment: No: D o not add to previous draw Performed By: #### 8 [id number] #### [facility] [address] [place] [address], [facility] eGFR- non- 18 ml/min/1.73sq m Abnormal >60 [facility] Comment on above: Order Comment: No: D o not add to previous draw Performed By: #### 8 [id number] #### [facility] [address] [place] [address], [place] Glucose [Mass/Vol] 355 mg/dL High 70-100 [facility] Comment on above: Order Comment: No: D o not add to previous draw Performed By: #### 8 5499 #### [facility] [address] [place] [address], [place] Potassium [Moles/Vol] 4.6 mmol/L Normal 3.5-5.1 [facility] Comment on above: Order Comment: No: D o not add to previous draw Performed By: #### 8 [id number] #### [facility] [address] [place] [address], [place] Sodium [Moles/Vol] 133 mmol/L Low 136-145 [facility] Comment on above: Order Comment: No: D o not add to previous draw Performed By: #### 8 [id number] #### [facility] [address] [place] [address], [facility] Urea nitrogen [Mass/Vol] 27 mg/dL High 7-25 [facility] Comment on above: Order Comment: No: D o not add to previous draw Performed By: #### 8 [id number] #### [facility] [address] [place] [id number], [facility] BNP (B-TYPE NATRIURETIC PEPT CIERRA)on 07-14-2020 Natriuretic peptide B (Bld) [Mass/Vol] 19 pg/mL Normal 0-100 [facility] Comment on above: Order Comment: Left Peural Effusion Result Comment: Give n the appropriate clinical setting a BNP result of >100 pg/mL indicates congestive heart failure. Performed By: #### 3 0318 #### [facility] [address] CBC COMPLETE BLOOD COUNTon 0 07-14-2020 Erythrocyte distribution width (RBC) [Ratio] 14.6 % Normal 11.5-15.0 [facility] Comment on above: Order Comment: No: D o not add to previous draw Performed By: #### 8 [id number] #### [facility] [address] [place] [address], [facility] Hematocrit (Bld) [Volume fraction] 35.3 % Low 39.0-50.0 [facility] Comment on above: Order Comment: No: D o not add to previous draw Performed By: #### 8 [id number] #### [facility] [address] [place] [address], [facility] Hemoglobin (Bld) [Mass/Vol] 11.1 g/dL Low 13.0-17.0 [facility] Comment on above: Order Comment: No: D o not add to previous draw Performed By: #### 8 [id number] #### [facility] [address] [place] [id number], [facility] MCH (RBC) [Entitic mass] 27.5 pg Normal 27.0-33.0 [facility] Comment on above: Order Comment: No: D o not add to previous draw Performed By: #### 8 [id number] #### [facility] [address] [place] [address], [facility] MCHC (RBC) [Mass/Vol] 31.4 g/dL Low 32.0-35.0 [facility] Comment on above: Order Comment: No: D o not add to previous draw Performed By: #### 8 [id number] #### [facility] [address] [facility] [place] [place] [id number], [facility] MCV (RBC) [Entitic vol] 87.6 fL Normal 82.0-98.0 [facility] Comment on above: Order Comment: No: D o not add to previous draw Performed By: #### 8 [id number] #### [facility] [address] [facility] [place] [address], [facility] Nucleated RBC/100 WBC (Bld) [Ratio] 0 % Normal 0-0 [facility] Comment on above: Order Comment: No: D o not add to previous draw Performed By: #### 8 [id number] #### [facility] [address] [facility] [place] [id number], [facility] PLAT CNT 325 10*3/uL Normal 150-400 [facility] Comment on above: Order Comment: No: D o not add to previous draw Performed By: #### 8 [id number] #### [facility] [address] [facility] [place] [id number], [facility] RBC (Bld) [#/Vol] 4.03 10*6/uL Low 4.20-5.70 [facility] Comment on above: Order Comment: No: D o not add to previous draw Performed By: #### 8 [id number] #### [facility] [address] [place] [id number], [facility] WBC (Bld) [#/Vol] 12.59 10*3/uL High 4.00-10.60 [facility] Comment on above: Order Comment: No: D o not add to previous draw Performed By: #### 8 [id number] #### [facility] [address] [facility] [place] [address], [facility] CBC W/DIFFon 07-14-2020 ABS IMM GRANS 0.2 10*3/uL Normal 0.0-0.2 [facility] Comment on above: Order Comment: No: D o not add to previous draw Performed By: #### 8 [id number] #### [facility] [address] [facility] [place] [address], [facility] ABS NEUTROPHILS 7.9 10*3/uL High 1.6-7.6 [facility] Comment on above: Order Comment: No: D o not add to previous draw Performed By: #### 8 [id number] #### [facility] [address] [facility] [place] [address], [facility] Basophils (Bld) [#/Vol] 0.1 10*3/uL Normal 0.0-0.2 [facility] Comment on above: Order Comment: No: D o not add to previous draw Performed By: #### 8 [id number] #### [facility] [address] [facility] [place] [address], [facility] Basophils/100 WBC (Bld) 0.5 % Normal 0.0-1.0 [facility] Comment on above: Order Comment: No: D o not add to previous draw Performed By: #### 8 [id number] #### [facility] [address] [facility]. [place] [id number], [facility] Eosinophils (Bld) [#/Vol] 0.5 10*3/uL Normal 0.0-0.5 [facility] Comment on above: Order Comment: No: D o not add to previous draw Performed By: #### 8 [id number] #### [facility] [address] [place] [id number], [facility] Eosinophils/100 WBC (Bld) 4.3 % Normal 0.0-6.0 [facility] Comment on above: Order Comment: No: D o not add to previous draw Performed By: #### 8 [id number] #### [facility] [address] [place] [address], [facility] Erythrocyte distribution width (RBC) [Ratio] 14.6 % Normal 11.5-15.0 [facility] Comment on above: Order Comment: No: D o not add to previous draw Performed By: #### 8 [id number] #### [facility] [address] [place] [address], [facility] Hematocrit (Bld) [Volume fraction] 34.2 % Low 39.0-50.0 [facility] Comment on above: Order Comment: No: D o not add to previous draw Performed By: #### 8 [id number] #### [facility] [address] [place] [id number], [facility] Hemoglobin (Bld) [Mass/Vol] 10.3 g/dL Low 13.0-17.0 [facility] Comment on above: Order Comment: No: D o not add to previous draw Performed By: #### 8 [id number] #### [facility] [address] [place] [address], [facility] IMMATURE GRANS 1.4 % High 0.0-1.0 [facility] Comment on above: Order Comment: No: D o not add to previous draw Performed By: #### 8 [id number] #### [facility] [address] [place] [id number], [facility] Lymphocytes (Bld) [#/Vol] 1.3 10*3/uL Normal 1.2-4.0 [facility] Comment on above: Order Comment: No: D o not add to previous draw Performed By: #### 8 [id number] #### [facility] [address] [place] [id number], [facility] Lymphocytes/100 WBC (Bld) 11.3 % Low 20.0-45.0 [facility] Comment on above: Order Comment: No: D o not add to previous draw Performed By: #### 8 [id number] #### [facility] [address] [place] [address], [facility] MCH (RBC) [Entitic mass] 27.0 pg Normal 27.0-33.0 [facility] Comment on above: Order Comment: No: D o not add to previous draw Performed By: #### 8 [id number] #### [facility] [address] [place] [address], [facility] MCHC (RBC) [Mass/Vol] 30.1 g/dL Low 32.0-35.0 [facility] Comment on above: Order Comment: No: D o not add to previous draw Performed By: #### 8 [id number] #### [facility] [address] [facility] [place] [address], [facility] MCV (RBC) [Entitic vol] 89.5 fL Normal 82.0-98.0 [facility] Comment on above: Order Comment: No: D o not add to previous draw Performed By: #### 8 [id number] #### [facility] [address] [facility] [place] [address], [facility] Monocytes (Bld) [#/Vol] 1.4 10*3/uL High 0.1-1.0 [facility] Comment on above: Order Comment: No: D o not add to previous draw Performed By: #### 8 [id number] #### [facility] [address] [place] [id number], [facility] MONOS 12.6 % High 5.0-12.0 [facility] Comment on above: Order Comment: No: D o not add to previous draw Performed By: #### 8 [id number] #### [facility] [address] [place] [address], [facility] Neutrophils/100 WBC (Bld) 69.9 % Normal 40.0-72.0 [facility] Comment on above: Order Comment: No: D o not add to previous draw Performed By: #### 8 [id number] #### [facility] [address] [place] [address], [facility] Nucleated RBC/100 WBC (Bld) [Ratio] 0 % Normal 0-0 [facility] Comment on above: Order Comment: No: D o not add to previous draw Performed By: #### 8 [id number] #### [facility] [address] [place] [address], [facility] PLAT CNT 292 10*3/uL Normal 150-400 [facility] Comment on above: Order Comment: No: D o not add to previous draw Performed By: #### 8 [id number] #### [facility] [address] [place] [address], [facility] RBC (Bld) [#/Vol] 3.82 10*6/uL Low 4.20-5.70 [facility] Comment on above: Order Comment: No: D o not add to previous draw Performed By: #### 8 [id number] #### [facility] [address] [place] [address], [facility] WBC (Bld) [#/Vol] 11.28 10*3/uL High 4.00-10.60 [facility] Comment on above: Order Comment: No: D o not add to previous draw Performed By: #### 8 [id number] #### [facility] [address] [place] [address], [facility] COMP METABOLIC PANELon 07-14 Albumin [Mass/Vol] 3.1 g/dL Low 3.5-5.7 [facility] Comment on above: Order Comment: No: D o not add to previous draw Performed By: #### 8 [id number] #### [facility] [address] [place] [address], [facility] ALKALINE PHOSPH 77 IU/L Normal 34-104 [facility] Comment on above: Order Comment: No: D o not add to previous draw Performed By: #### 8 [id number] #### [facility] [address] [place] [address], [place] ALT [Catalytic activity/Vol] 8 U/L Normal 7-52 [facility] Comment on above: Order Comment: No: D o not add to previous draw Performed By: #### 8 [id number] #### [facility] [address] [place] [address], [place] AST [Catalytic activity/Vol] 11 U/L Low 13-39 [facility] Comment on above: Order Comment: No: D o not add to previous draw Performed By: #### 8 [id number] #### [facility] [address] [place] [address], [place] Bilirubin [Mass/Vol] 0.3 mg/dL Normal 0.3-1.0 [facility] Comment on above: Order Comment: No: D o not add to previous draw Performed By: #### 8 [id number] #### [facility] [address] [place] [address], [place] Calcium [Mass/Vol] 8.8 mg/dL Normal 8.6-10.3 [facility] Comment on above: Order Comment: No: D o not add to previous draw Performed By: #### 8 [id number] #### [facility] [address] [place] [address], [place] Chloride [Moles/Vol] 101 mmol/L Normal 98-107 [facility] Comment on above: Order Comment: No: D o not add to previous draw Performed By: #### 8 [id number] #### [facility] [address] [place] [address], [place] CO2 [Moles/Vol] 22 mmol/L Normal 21-31 [facility] Comment on above: Order Comment: No: D o not add to previous draw Performed By: #### 8 [id number] #### [facility] [address] [place] [address], [place] Creatinine [Mass/Vol] 3.38 mg/dL High 0.70-1.30 [facility] Comment on above: Order Comment: No: D o not add to previous draw Performed By: #### 8 [id number] #### [facility] [address] [place] [address], [place] eGFR- 23 ml/min/1.73sq m Abnormal >60 [facility] Comment on above: Order Comment: No: D o not add to previous draw Performed By: #### 8 [id number] #### [facility] [address] [place] [address], [place] eGFR- non- 19 ml/min/1.73sq m Abnormal >60 [facility] Comment on above: Order Comment: No: D o not add to previous draw Performed By: #### 8 [id number] #### [facility] [address] [place] [address], [place] Glucose [Mass/Vol] 324 mg/dL High 70-100 [facility] Comment on above: Order Comment: No: D o not add to previous draw Performed By: #### 8 [id number] #### [facility] [address] [place] [address], [place] Potassium [Moles/Vol] 4.5 mmol/L Normal 3.5-5.1 [facility] Comment on above: Order Comment: No: D o not add to previous draw Performed By: #### 8 [id number] #### [facility] [address] [place] [address], [place] Protein [Mass/Vol] 6.7 g/dL Normal 6.0-8.3 [facility] Comment on above: Order Comment: No: D o not add to previous draw Performed By: #### 8 [id number] #### [facility] [address] [place] [address], [place] Sodium [Moles/Vol] 131 mmol/L Low 136-145 [facility] Comment on above: Order Comment: No: D o not add to previous draw Performed By: #### 8 [id number] #### [facility] [address] Urea nitrogen [Mass/Vol] 27 mg/dL High 7-25 [facility] Comment on above: Order Comment: No: D o not add to previous draw Performed By: #### 8 [id number] #### [facility] [address] CREATININE URINE RANDOMon Creatinine (U) [Mass/Vol] 101.0 mg/dL Normal [facility] Comment on above: Order Comment: No: D o not add to previous draw Result Comment: Ther e are no established reference values for random urine specimens Performed By: #### 8 [id number] #### [facility] [address] [facility] [address] FLUID CELL COUNTon 1 Basophils/100 WBC (Bld) 1 % Normal [facility] Comment on above: Performed By: #### 8 [id number] #### [facility] [address] [facility] [place] [address], [facility] Eosinophils/100 WBC (Bld) 11 % Normal [facility] Comment on above: Performed By: #### 8 [id number] #### [facility] [address] [facility] [place] [address], [facility] Lymphocytes/100 WBC (Bld) 49 % Normal [facility] Comment on above: Performed By: #### 8 [id number] #### [facility] [address] [facility] [place] [address], [facility] MESOTHELIAL 12 % Normal [facility] Comment on above: Performed By: #### 8 [id number] #### [facility] [address] [place] [address], [facility] OTHER F1 Diff done by cytospin Normal [facility] Comment on above: Performed By: #### 8 [id number] #### [facility] [address] [place] [address], [facility] OTHER F3 Checked by Evelyn Rodriguez M.D. Normal [facility] Comment on above: Result Comment: Resu lt changed by VHERR on 07/15/2020 13:33. The previous value was Preliminary report; verified report to follow. Performed By: #### 8 [id number] #### [facility] [address] [place] [address], [facility] RBC 68907 RBC/uL Normal [facility] Comment on above: Performed By: #### 8 [id number] #### [facility] [address] [place] [address], [facility] SEGS 27 % Normal [facility] Comment on above: Performed By: #### 8 [id number] #### [facility] [address] [place] [address], [facility] SOURCE Thoracentesis Normal [facility] Comment on above: Performed By: #### 8 [id number] #### [facility] [address] [place] [address], [facility] TOTAL VOLUME 1L Normal [facility] Comment on above: Performed By: #### 8 [id number] #### [facility] [address] [place] [address], [facility] WBC 1762 WBC/uL Normal [facility] Comment on above: Result Comment: Some reference interval(s) and other method performance specifications have not been established for analytes on this body fluid. The test result must be integrated into the clinical context for interpretation. Performed By: #### 8 [id number] #### [facility] [address] [place] [address], [facility] GLUCOSE FLUID MISCon 03-18-2 021 Glucose [Mass/Vol] 326 mg/dL Normal [facility] Comment on above: Result Comment: The reference range and other method performance specifications have not been established for this test in fluids. the test result should be integrated into the clinical context for interpretation. Performed By: #### 3 1944 #### [facility] [address] HEMOGLOBIN A1Con 07-14-2020 Glucose [Moles/Vol] 295 mmol/L Normal [facility] Comment on above: Order Comment: Left Peural Effusion Performed By: #### 3 8 #### [facility] [address] HbA1c (Bld) [Mass fraction] 11.9 % High 4.0-6.0 [facility] Comment on above: Order Comment: Left Peural Effusion Performed By: #### 3 8 #### [facility] [address] HEPATITIS B SURFACE ANTIGEN QUALon 07-14-2020 HEP B SURF AG QUAL Non-Reactive Normal NONREACTIVE [facility] Comment on above: Order Comment: No: D o not add to previous draw Performed By: #### 3 1943 #### [facility] [address] [facility] [place] [place] [address], [facility] HEPATITIS C ANTIBODYon 07-14 ANTI-HCV Non-Reactive Normal NONREACTIVE [facility] Comment on above: Order Comment: No: D o not add to previous draw Performed By: #### 3 1943 #### [facility] [address] [facility] [place] [address], [facility] LDH BLOODon 07-14-2020 LDH 176 Units/L Normal 140-271 [facility] Comment on above: Order Comment: Left Peural Effusion Performed By: #### 3 8 #### [facility] [address] [place] [address], [facility] LDH 133 Units/L Low 140-271 [facility] Comment on above: Order Comment: No: D o not add to previous draw Performed By: #### 8 [id number] #### [facility] [address] [place] [address], [facility] LDH FLUIDon 07-14-2020 LDH 212 Units/L Normal [facility] Comment on above: Result Comment: The reference range and other method performance specifications have not been established for this test in fluids. the test result should be integrated into the clinical context for interpretation. Performed By: #### 3 1944 #### [facility] [address] [place] [address], [facility] LIPID PROFILEon 07-14-2020 Cholesterol [Mass/Vol] 95 mg/dL Low 120-200 [facility] Comment on above: Order Comment: No: D o not add to previous draw Result Comment: CHOL ESTEROL REFERENCE RANGE: 20 YEARS AND OLDER CARDIOVASCULAR RISK Less than 200 mg/dl Low Risk 200 to 239 mg/dl Borderline Risk 240 mg/dl and greater High Risk Performed By: #### 8 [id number] #### [facility] [address] [facility] [place] [address], [facility] Cholesterol in HDL [Mass/Vol] 36 mg/dL Normal 23-92 [facility] Comment on above: Order Comment: No: D o not add to previous draw Result Comment: Slig ht variation in normal range could be due to gender and/or age. HDL CHOLESTEROL REFERENCE RANGE: 20 years and older Cardiovascular Risk > or =60 mg/dL Desirable 40 TO 59 mg/dL Low Risk <40 mg/dL High Risk Performed By: #### 8 [id number] #### [facility] [address] [place] [address], [facility] Cholesterol in LDL [Mass/Vol] 37 mg/dL Normal 0-130 [facility] Comment on above: Order Comment: No: D o not add to previous draw Result Comment: LDL IS A CALCULATION LDL IS ONLY VALID IF THE TRIG IS LESS THAN 400. Performed By: #### 8 [id number] #### [facility] [address] [place] [address], [place] Cholesterol.total/C holesterol in HDL [Mass ratio] 2.6 {ratio} Normal 0.0-4.5 [facility] Comment on above: Order Comment: No: D o not add to previous draw Performed By: #### 8 [id number] #### [facility] [address] [place] [address], [facility] NON-HDL CHOLESTEROL 59 mg/dL Normal [facility] Comment on above: Order Comment: No: D o not add to previous draw Performed By: #### 8 [id number] #### [facility] [address] [place] [address], [facility] Triglyceride [Mass/Vol] 109 mg/dL Normal 40-149 [facility] Comment on above: Order Comment: No: D o not add to previous draw Result Comment: TRIG LYCERIDE REFERENCE RANGE: 20 YEARS AND OLDER CARDIOVASCULAR RISK LESS THAN 150 mg/dl LOW RISK 150 TO 199 mg/dl BORDERLINE RISK 200 mg/dl AND GREATER HIGH RISK Performed By: #### 8 [id number] #### [facility] [address] [facility] [place] [address], [facility] VLDL CHOL 22 mg/dL Normal 0-40 [facility] Comment on above: Order Comment: No: D o not add to previous draw Performed By: #### 8 [id number] #### [facility] [address] [facility] [place] [address], [facility] MAGNESIUM BLOODon 07-14-2020 Magnesium [Mass/Vol] 2.1 mg/dL Normal 1.9-2.7 [facility] Comment on above: Order Comment: No: D o not add to previous draw Performed By: #### 8 [id number] #### [facility] [address] [place] [address], [facility] Magnesium [Mass/Vol] 2.0 mg/dL Normal 1.9-2.7 [facility] Comment on above: Performed By: #### 8 [id number] #### [facility] [address] [place] [address], [facility] PHOSPHORUS BLOODon Phosphate [Mass/Vol] 4.1 mg/dL Normal 2.5-5.0 [facility] Comment on above: Order Comment: No: D o not add to previous draw Performed By: #### 8 [id number] #### [facility] [address] [place] [address], [place] Phosphate [Mass/Vol] 4.0 mg/dL Normal 2.5-5.0 [facility] Comment on above: Performed By: #### 8 [id number] #### [facility] [address] [place] [address], [place] POC GLUCOSE LABon 07-14-2020 Glucose [Mass/Vol] 180 mg/dL High 70-100 [facility] Comment on above: Performed By: #### 8 [id number] ####[facility] [place] [address], [place] Glucose [Mass/Vol] 198 mg/dL High 70-100 [facility] Comment on above: Performed By: #### 5 7307, 28857 #### [facility] [address] [place] [address], [place] Glucose [Mass/Vol] 265 mg/dL High 70-100 [facility] Comment on above: Performed By: #### 8 [id number] #### [facility] [address] [place] [address], [place] Glucose [Mass/Vol] 305 mg/dL High 70-100 [facility] Comment on above: Performed By: #### 5 7307, 47726 #### [facility] [address] [place] [address], [place] Glucose [Mass/Vol] 301 mg/dL High 70-100 [facility] Comment on above: Performed By: #### 5 0103 #### [facility] [address] [place] [address], [place] PORTABLE CHEST 1 VIEWon 06-27 PORTABLE CHEST 1 VIEW [facility] Department of Radiology [address] [place] [address] Patient Name: RASHARD LYMAN : 1960 Sex: M Age: Race: White Pt. Location: [id number] Patient Status: I Ordered Date: 07/14/2020 1:40:00 PM Completed Date: 07/14/2020 03:16 PM Requesting Provider: DAVIS PHAM Attending Provider: SAVANNAH REYNOLDS Report Copy To: Signs & Symptoms: Post OP History: Comments: Evaluate for Pneumothorax Exam: PORTABLE CHEST 1 VIEW PORTABLE CHEST 1 VIEW 07/14/2020 3:16 PM CLINICAL INDICATIONS: Post OP. Pain TECHNOLOGIST COMMENTS: post thoracentesis QUESTION FOR THE RADIOLOGIST: Evaluate for Pneumothorax PROTOCOL: AP(PA) view was obtained. COMPARISON: 07/14/2020 FINDINGS: Expiration image was obtained. There is no pneumothorax following left thoracentesis. Decrease in the pleural effusion size is noted. Underlying infiltrate or parenchymal abnormality as do remain. Progress imaging is requested. No change in appearance of the mediastinum or right lung. IMPRESSION: No pneumothorax following thoracentesis. Progress study is requested please see above Electronically signed: Patricia Damon. Transcribed by: [email or web address], User Resident: Electronically Signed by: PATRICIA DAMON @ 07/14/2020 03:24 PM Normal [facility] Comment on above: Order Comment: Evalu ate for Pneumothorax PORTABLE CHEST 1 VIEW [facility] Department of Radiology [address] [place] [id number] Patient Name: RASHARD LYMAN : 1960 Sex: M Age: Race: White Pt. Location: [id number] Patient Status: I Ordered Date: 07/13/2020 11:35:00 PM Completed Date: 07/14/2020 12:23 AM Requesting Provider: ESPINOZA CHAPMAN Attending Provider: SAVANNAH REYNOLDS Report Copy To: Signs & Symptoms: Shortness of Breath History: See Comments Comments: evaluate for Effusion Exam: PORTABLE CHEST 1 VIEW PORTABLE CHEST 1 VIEW 07/14/2020 12:23 AM CLINICAL INDICATIONS: Shortness of Breath TECHNOLOGIST COMMENTS: shortness of breath, cough QUESTION FOR THE RADIOLOGIST: evaluate for Effusion PROTOCOL: AP(PA) view was obtained. COMPARISON: None FINDINGS: The cardiomediastinal silhouette is partially obscured by a large left pleural effusion. Associated atelectasis. Right lung is clear. No evidence of pneumothorax. IMPRESSION: Large left pleural effusion. Approved by:Sy Guerra07/14/2020 6:04 AM. I, Valdemar Foster,have reviewed the images and reports Electronically signed: Valdemar Foster. Transcribed by: [email or web address], User Resident: [email or web address] Electronically Signed by: VALDEMAR FOSTER @ 07/14/2020 06:31 AM I personally read this/these film(s) with this resident Normal [facility] Comment on above: Order Comment: evalu ate for Effusion PROTEIN ELECT Truong 07-14-2020 Protein [Mass/Vol] 6.0 g/dL Normal 6.0-8.3 [facility] Comment on above: Performed By: #### 3 0318 #### [facility] [address] [facility] [address], [facility] PROTEIN ELECT Normal [facility] Comment on above: Result Comment: Decr eased albumin and elevated alpha 1 and 2 suggests acute inflammation. Performed By: #### 3 0318 #### [facility] [address] [facility] [place] [address], [facility] PROTEIN ELECT URon 1 PROTEIN ELECT Urine protein electrophoresis suggests a nonselective nephropathy. Normal [facility] Comment on above: Performed By: #### 3 1944 #### [facility] [address] [place] [address], [facility] PROTEIN TOTAL BLOODon 2020 Protein [Mass/Vol] 6.7 g/dL Normal 6.0-8.3 [facility] Comment on above: Order Comment: Left Peural Effusion Performed By: #### 3 0318 #### [facility] [address] [facility] [place] [address], [facility] PROTHROMBIN TIMEon 1 INR Coag (PPP) [Relative time] 1.12 {INR} Normal 0.91-1.16 [facility] Comment on above: Order Comment: No: D o not add to previous draw Result Comment: ACCC P RECOMMENDED INR FOR WARFARIN THERAPY ------ ------- CONDITION INR PROPHYLAXIS OF VENOUS THROMBOSIS 2-3 (HIGH-RISK SURGERY) TREATMENT OF VENOUS THROMBOSIS 2-3 TREATMENT OF PULMONARY EMBOLISM 2-3 PREVENTION OF SYSTEMIC EMBOLISM: 2-3 ACUTE MYOCARDIAL INFARCTION TISSUE HEART VALVES VALVULAR HEART DISEASE ATRIAL FIBRILLATION RECURRENT SYSTEMIC EMBOLISM MECHANICAL HEART VALVE 2.5-3.5 FROM: ORAL ANTICOAGULANTS. MECHANISM OF ACTION, CLINICAL EFFECTIVENESS, AND OPTIMAL THERAPEUTIC RANGE. CHEST 1995;108:231S-246S. Performed By: #### 5 7307, [id number] #### [facility] [address] [place] [address], [facility] PT Coag (PPP) [Time] 14.4 s Normal 12.3-14.8 [facility] Comment on above: Order Comment: No: D o not add to previous draw Result Comment: ALL RESULTS MUST BE INTERPRETED WITH RESPECT TO BLOOD DRAWING ARTIFACT OR DILUTION ERROR OF ANTICOAGULANT AT THE TIME OF SAMPLING. Performed By: #### 5 7307, 68415 #### [facility] [address] [place] [address], [facility] SEDIMENTATION RATEon 021 SED RATE 32 mm/hr High 0-10 [facility] Comment on above: Performed By: #### 8 [id number] #### [facility] [address] [place] [address], [facility] SODIUM URINE RANDOMon 2020 Sodium (U) [Moles/Vol] 59 mmol/L Normal [facility] Comment on above: Order Comment: No: D o not add to previous draw Result Comment: Ther e are no established reference values for random urine specimens Performed By: #### 8 [id number] #### [facility] [address] [place] [address], [place] T PROT FLUIDon 07-14-2020 Protein [Mass/Vol] 3.6 g/dL Normal [facility] Comment on above: Result Comment: The reference range and other method performance specifications have not been established for this test in fluids. the test result should be integrated into the clinical context for interpretation. Performed By: #### 3 1944 #### [facility] [facility] [address] [place] [address], [place] T PROT UR Loretta 07-14-2020 U TOTAL PROTEIN 859.0 mg/dL Normal [facility] Comment on above: Order Comment: No: D o not add to previous draw Result Comment: Ther e are no established reference values for random urine specimens Performed By: #### [id number] #### [facility] [address] [facility] [place] [address], [facility] Performed By: #### 3 [id number] #### [facility] [address] [facility] [place] [address], [facility] TROPONIN-Ion 07-14-2020 Troponin I.cardiac [Mass/Vol] 0.09 ng/mL High 0.00-0.04 [facility] Comment on above: Order Comment: No: D o not add to previous draw Result Comment: REFE RENCE RANGES: 0.00 - 0.04 ng/ml NORMAL 0.05 - 0.50 ng/ml INDETERMINATE > 0.50 ng/ml CONSISTENT WITH AN M.I. Performed By: #### 8 [id number] #### [facility] [address] [place] [address], [facility] Troponin I.cardiac [Mass/Vol] 0.07 ng/mL High 0.00-0.04 [facility] Comment on above: Order Comment: No: D o not add to previous draw Result Comment: REFE RENCE RANGES: 0.00 - 0.04 ng/ml NORMAL 0.05 - 0.50 ng/ml INDETERMINATE > 0.50 ng/ml CONSISTENT WITH AN M.I. Performed By: #### 8 [id number] #### [facility] [address] [facility] [place] [address], [facility] TSH3on 07-14-2020 TSH 3RD GENERATION 3.28 uIU/mL Normal 0.34-5.60 [facility] Comment on above: Order Comment: No: D o not add to previous draw Performed By: #### [id number] #### [facility] [address] [facility] [place] [address], [facility] URIC ACID BLOODon 07-14-2020 Urate [Mass/Vol] 7.1 mg/dL Normal 4.4-7.6 [facility] Comment on above: Performed By: #### 8 [id number] #### [facility] [address] [place] [address], [place] URINALYSIS REFLEXon 07-15-19 21 Appearance (U) SL CLOUDY Abnormal CLEAR [facility] Comment on above: Order Comment: Left Peural Effusion Performed By: #### 3 [id number] #### [facility] [address] [place] [address], [place] Bilirubin Ql (U) Negative Normal NEGATIVE [facility] Comment on above: Order Comment: Left Peural Effusion Performed By: #### 3 [id number] #### [facility] [address] [place] [address], [place] Color (U) YELLOW Normal YELLOW [facility] Comment on above: Order Comment: Left Peural Effusion Performed By: #### 3 [id number] #### [facility] [address] [place] [address], [place] EPIS FEW Normal FEW,OCC,NONE SEEN [facility] Comment on above: Order Comment: Left Peural Effusion Performed By: #### 3 [id number] #### [facility] [address] [place] [address], [place] Glucose Ql (U) >=500 Abnormal NEGATIVE [facility] Comment on above: Order Comment: Left Peural Effusion Performed By: #### 3 [id number] #### [facility] [address] [place] [address], [place] Hemoglobin Ql (U) TRACE Abnormal NEGATIVE [facility] Comment on above: Order Comment: Left Peural Effusion Performed By: #### 3 [id number] #### [facility] [address] [place] [address], [place] KETONE TRACE Abnormal NEGATIVE [facility] Comment on above: Order Comment: Left Peural Effusion Performed By: #### 3 [id number] #### [facility] [address] [place] [address], [place] LEUK JACIEL Negative Normal NEGATIVE [facility] Comment on above: Order Comment: Left Peural Effusion Performed By: #### 3 [id number] #### [facility] [address] [place] [address], [place] MUCUS THREADS OCC Abnormal NONE SEEN [facility] Comment on above: Order Comment: Left Peural Effusion Performed By: #### 3 [id number] #### [facility] [address] [place] [address], [place] Nitrite Ql (U) Negative Normal NEGATIVE [facility] Comment on above: Order Comment: Left Peural Effusion Performed By: #### 3 [id number] #### [facility] [address] [place] [address], [place] pH (U) 6.0 [pH] Normal 5.0-8.0 [facility] Comment on above: Order Comment: Left Peural Effusion Performed By: #### 3 [id number] #### [facility] [address] [place] [address], [place] Protein Ql (U) >=500 Abnormal NEGATIVE [facility] Comment on above: Order Comment: Left Peural Effusion Performed By: #### 3 [id number] #### [facility] [address] [place] [address], [place] RBC 0-2 Abnormal NONE SEEN [facility] Comment on above: Order Comment: Left Peural Effusion Performed By: #### 3 [id number] #### [facility] [address] [place] [address], [place] SPEC GRAV 1.017 Normal 1.015-1.020 [facility] Comment on above: Order Comment: Left Peural Effusion Performed By: #### 3 [id number] #### [facility] [address] [place] [address], [place] WBC UA 3-5 Abnormal NONE SEEN [facility] Comment on above: Order Comment: Left Peural Effusion Performed By: #### 3 [id number] #### [facility] [address] Vital Signs Date Time Vital Sign Value Performing Clinician Facility 03-21-2021 15:40-0500 Body height 193.04 cm Kike Pollack Other [facility] Other 03-21-2021 15:40-0500 Body mass index (BMI) [Ratio] 39.02 kg/m2 Kike Pollack Other [facility] Other 03-21-2021 15:40-0500 Body temperature 97.8 [degF] Kike Pollack Other [facility] Other 03-21-2021 15:40-0500 Body weight 145.42 kg Kike Pollack Other [facility] Other 03-21-2021 15:40-0500 Diastolic blood pressure 84 mm[Hg] Kike Pollack Other [facility] Other 03-21-2021 15:40-0500 Respiratory rate 18 /min Kike Pollack Other [facility] Other 03-21-2021 15:40-0500 SaO2% (BldA) [Mass fraction] 96 % Kike Pollack Other [facility] Other 03-21-2021 15:40-0500 Systolic blood pressure 137 mm[Hg] Kike Gomesangela Other [facility] Other 08-25-2020 12:24-0400 Heart rate 82 /min Jose Juarez Work Phone: [facility] 08-25-2020 12:24-0400 Respiratory rate 20 /min Jose Valone Work Phone: [facility] 08-25-2020 11:17-0400 Body temperature 98.7 [degF] Jose Valone Work Phone: [facility] 08-25-2020 11:17-0400 Diastolic blood pressure 94 mm[Hg] Jose Valone Work Phone: [facility] 08-25-2020 11:17-0400 SaO2% (BldA) [Mass fraction] 96 % Jose Valone Work Phone: [facility] 08-25-2020 11:17-0400 Systolic blood pressure 183 mm[Hg] Jose Valone Work Phone: [facility] 08-25-2020 06:00-0400 Body weight 160.5 kg Jose Valone Work Phone: [facility] 08-19-2020 14:17-0400 Body height 193.04 cm Jose Valone Work Phone: [facility] 08-18-2020 21:22-0400 Body height 193.04 cm Jose Valone Work Phone: [facility] 08-18-2020 21:22-0400 Body mass index (BMI) [Ratio] 43.8 kg/m2 Jose Valone Work Phone: [facility] 08-18-2020 21:22-0400 Body temperature 97.6 [degF] Jose Valone Work Phone: [facility] 08-18-2020 21:22-0400 Body weight 163.3 kg Jose Valone Work Phone: [facility] 08-18-2020 21:22-0400 Diastolic blood pressure 80 mm[Hg] Jose Valone Work Phone: [facility] 08-18-2020 21:22-0400 Heart rate 105 /min Jose Valone Work Phone: [facility] 08-18-2020 21:22-0400 Respiratory rate 18 /min Jose Juarez Work Phone: [facility] 08-18-2020 21:22-0400 SaO2% (BldA) [Mass fraction] 94 % Jose Juarez Work Phone: [facility] 08-18-2020 21:22-0400 Systolic blood pressure 160 mm[Hg] Jose Juarez Work Phone: [facility] Encounters Encounter Date Encounter Type Care Provider Facility Start: 02-27-2023 End: 02-28-2023 ambulatory JUANCARLOS [facility] Start: 09-11-2022 End: 09-12-2022 ambulatory [facility] Mark Anthony [facility] Facility:H1 Start: 08-28-2022 End: 08-29-2022 ambulatory [facility] Mark Anthony [facility] Facility:H1 Start: 08-24-2022 End: 08-25-[address] JOSE JUAREZ Facility:H1 Start: 08-20-2022 End: 08-21-[address] JOSE JUAREZ Facility:H1 Start: 08-19-2022 Encounter for preprocedural cardiovascular examination [facility] Start: 08-19-2022 Encounter for preprocedural laboratory examination [facility] Start: 08-19-2022 Encounter for preprocedural respiratory examination [facility] Start: 08-15-2022 End: 08-16-[address] JOSE JUAREZ Facility:H1 Start: 08-15-2022 End: 08-16-2022 Encounter for preprocedural laboratory examination DR JOSE JUAREZ Facility:H1 Start: 07-31-2022 End: 08-01-[address] JOSE JUAREZ Facility:H1 Start: 07-13-2022 End: 07-14-[address] JOSE JUAREZ Facility:H1 Start: 06-21-2022 End: 06-22-[address] JOSE JUAREZ Facility:H1 Start: 06-14-[address] CARLOS EDUARDO SU . Faci lity:H1 Start: 06-06-2022 End: 06-06-[address] JOSE JUAREZ Facility:H1 Start: 05-28-2022 End: 05-29-[address] JOSE JUAREZ Facility:H1 Start: 05-07-2022 End: 05-08-[address] JOSE JUAREZ Facility:H1 Start: 04-09-2022 End: 04-10-[address] JOSE JUAREZ Facility:H1 Start: 03-26-2022 End: 03-27-[address] JOSE JUAREZ Facility:H1 Start: 03-13-2022 End: 03-14-[address] JOSE JUAREZ Facility:H1 Start: 03-02-2022 End: 03-03-[address] JOSE JUAREZ Facility:H1 Start: 03-01-2022 End: 03-02-[address] CARLOS EDUARDO SU . Facility:H1 Start: 02-23-2022 End: 02-24-[address] JOSE JUAREZ Facility:H1 Start: 02-16-2022 End: 02-17-[address] JOSE JUAREZ Facility:H1 Start: 02-09-2022 End: 02-10-[address] JOSE JUAREZ Facility:H1 Start: 02-02-2022 End: 02-03-2022 ambulatory CHINO GARCIAANDER Facility:H1 Start: 01-26-2022 End: 01-27-2022 ambulatory CHINO GARCIAANDER Facility:H1 Start: 01-18-2022 End: 01-19-2022 ambulatory CHINO D JOSEANDER Facility:H1 Start: 01-15-2022 End: 01-15-2022 ambulatory CHINO D HIGHLANDER Facility:H1 Start: 01-12-2022 End: 01-13-2022 ambulatory CHINO D HIGHLANDER Facility:H1 Start: 01-10-2022 End: 01-11-2022 ambulatory PETER D HIGHLANDER Facility:H1 Start: 01-02-2022 End: 01-03-2022 ambulatory CHINO D HIGHLANDER Facility:H1 Start: 12-25-2021 End: 12-26-2021 ambulatory CHINO D HIGHLANDER Facility:H1 Start: 12-21-2021 End: 12-22-2021 ambulatory SHAIKH Patricia DAVIS Facility:H1 Start: 12-18-2021 End: 12-19-2021 ambulatory CHINO D HIGHLANDER Facility:H1 Start: 12-15-2021 End: 12-16-2021 ambulatory CHINO Mark Anthony ELLIOTT Facility:H1 Start: 12-11-2021 End: 12-12-2021 ambulatory CHINO Hopson [facility] Facility:H1 Start: 11-30-2021 End: 12-01-[address] CARLOS EDUARDO SU . Facility:H1 Start: 11-22-2021 End: 11-23-[address] CARLOS EDUARDO SU . Facility:H1 Start: 11-21-2021 End: 11-22-2021 ambulatory CHINO Mark Anthony [facility] Facility:H1 Start: 11-14-[address] CARLOS EDUARDO SU . Faci lity:H1 Start: 11-13-2021 End: 11-14-2021 ambulatory CHINO Hopson [facility] Facility:H1 Start: 11-07-2021 End: 11-08-2021 ambulatory CHINO Hopson [facility] Facility:H1 Start: 10-31-2021 End: 11-01-2021 ambulatory CHINO Hopson [facility] Facility:H1 Start: 10-24-2021 End: 10-25-2021 ambulatory CHINO Hopson [facility] Facility:H1 Start: 10-17-2021 End: 10-18-2021 ambulatory CHINO Hopson [facility] Facility:H1 Start: 10-09-2021 End: 10-10-2021 ambulatory CHINO Hopson [facility] Facility:H1 Start: 03-21-2021 End: 03-21-2021 ambulatory Kike Pollack Other [employer] Other Start: 03-21-2021 Office outpatient vi sit 25 minutes Kike Pollack [facility] Start: 10-20-2020 End: 10-21-2020 ambulatory UNKNOWN PROVIDER Facility:[facility] Start: 09-28-2020 End: 09-28-2020 Patient encounter procedure Jose Juarez Work Phone: -Respiratory Therapy Start: 09-06-2020 End: 09-06-2020 Patient encounter procedure Jose Juarez Work Phone: -Electrodiagnostics Start: 08-18-2020 End: 08-25-2020 Evaluation and management of inpatient Jose Juarez Work Phone: -[facility] Start: 07-13-2020 End: 07-22-2020 Evaluation and management of inpatient SAVANNAH REYNOLDS Facility:[facility] Procedures Date Procedure Procedure Detail Performing Clinician Start: 08-20-2020 MR thoracic spine wo con Jose Juarez Work Phone: Start: 08-19-2020 CT abdomen pelvis wo con Jose Juarez Work Phone: Start: 08-19-2020 CT chest wo con Jose Juarez Work Phone: Start: 08-19-2020 Ultrasonography of b ilateral kidneys Jose Juarez Work Phone: Start: 08-19-2020 End: 08-19-2020 Aerobic microbial culture Jose [employer] Work Phone: Start: 08-19-2020 Investigation of tra nsfusion reaction Jose [employer] Work Phone: Start: 08-18-2020 Plain chest X-ray Charl uli Juarez Work Phone: Start: 08-18-2020 Blood culture for ba cteria, including anaerobic screen Jose [employer] Work Phone: Start: 08-18-2020 Respiratory Panel (PCR) Jose [employer] Work Phone: Start: 07-19-2020 DRAINAGE OF L PLEURA L CAV WITH DRAIN DEV, PERC ENDO APPROACH MOHAMED OMBALLI Start: 07-19-2020 EXCISION OF LEFT PLE URA, PERC ENDO APPROACH, DIAGN MOHAMED OMBALLI Start: 07-19-2020 INTRODUCE OF OTH THE RAP SUBST INTO RESP TRACT, VIA OPENING MOHAMED OMBALLI Start: 07-19-2020 RELEASE LEFT PLEURA, PERCUTANEOUS ENDOSCOPIC APPROACH MOHAMED OMBALLI Start: 07-15-2020 DRAINAGE OF LEFT PLE URAL CAVITY, PERC APPROACH, DIAGN MOHAMED OMBALLI Start: 07-15-2020 DRAINAGE OF LEFT PLE URAL CAVITY, PERCUTANEOUS APPROACH MOHAMED OMBALLI Start: 07-14-2020 DRAINAGE OF LEFT PLE URAL CAVITY, PERCUTANEOUS APPROACH MOHAMED OMBALLI Start: 07-14-2020 ULTRASONOGRAPHY OF R IGHT AND LEFT HEART, TRANSESOPHAGEAL SAMER Laura CALLAWAY Plan of Treatment Date Care Activity Detail Author Start: 08-18-2020 Bacteria identified in Blood by Culture Blood Culture [facility] Patient referral [facility] Immunizations Immunization Date Immunization Notes Care Provider Fa cility 05-27-2015 influenza, seasonal, injectable Kike Pollack Other [facility] Other 05-27-2015 pneumococcal polysaccharide vaccine, 23 valent Kike Pollack Other [facility] Other Payers Date Payer Category Payer Unknown [id number] 1960 Unknown [id number] 2.16.8 [id number] 1960 Unknown [id number] 2.16. 840.1.511883.3.579.2.732 1960 Unknown [id number] 2.16.84 0.1.548577.3.579.2.593 1960 Unknown [id number] 2.16.84 0.1.979260.3.579.2.593 1960 Unknown [id number] 2.16.84 0.1.013806.3.579.2.593 1960 Unknown [id number] 2.16.84 0.1.949889.3.579.2.593 1960 Unknown [id number] 2.16.84 0.1.720392.3.579.2.593 1960 Unknown [id number] 2.16.84 0.1.795306.3.579.2.593 1960 Unknown [id number] 2.16.84 0.1.622710.3.579.2.593 1960 Unknown [id number] 2.16.84 0.1.482775.3.579.2.593 1960 Unknown [id number] 2.16.84 0.1.581930.3.579.2.593 1960 Unknown [id number] 2.16.84 0.1.232408.3.579.2.593 1960 Unknown [id number] 2.16.84 0.1.894504.3.579.2.593 1960 Unknown [id number] 2.16.84 0.1.583094.3.579.2.593 1960 Unknown [id number] 2.16.84 0.1.873749.3.579.2.593 1960 Unknown [id number] 2.16.84 0.1.204381.3.579.2.593 1960 Unknown [id number] 2.16.84 0.1.603199.3.579.2.593 1960 Unknown [id number] 2.16.84 0.1.851044.3.579.2.593 1960 Unknown [id number] 2.16.84 0.1.031240.3.579.2.593 1960 Unknown [id number] 2.16.84 0.1.705457.3.579.2.593 1960 Unknown [id number] 2.16.84 0.1.022875.3.579.2.593 1960 Unknown [id number] 2.16.84 0.1.331133.3.579.2.593 1960 Unknown [id number] 2.16.84 0.1.601164.3.579.2.593 1960 Unknown [id number] 2.16.84 0.1.621227.3.579.2.593 1960 Unknown [id number] 2.16.84 0.1.372807.3.579.2.593 1960 Unknown [id number] 2.16.84 0.1.718708.3.579.2.593 1960 Unknown [id number] 2.16.84 0.1.686708.3.579.2.593 1960 Unknown [id number] 2.16.84 0.1.162434.3.579.2.593 1960 Unknown [id number] 2.16.84 0.1.560572.3.579.2.593 1960 Unknown [id number] 2.16.84 0.1.086095.3.579.2.593 1960 Unknown [id number] 2.16.84 0.1.431519.3.579.2.593 1960 Unknown [id number] 2.16.84 0.1.195469.3.579.2.593 1960 Unknown [id number] 2.16.84 0.1.768778.3.579.2.593 1960 Unknown [id number] 2.16.84 0.1.590279.3.579.2.593 1960 Unknown [id number] 2.16.84 0.1.869666.3.579.2.593 1960 Unknown [id number] 2.16.84 0.1.961930.3.579.2.593 1960 Unknown [id number] 2.16.84 0.1.924913.3.579.2.593 1960 Unknown [id number] 2.16.84 0.1.878097.3.579.2.593 1960 Unknown [id number] 2.16.84 0.1.941235.3.579.2.593 1960 Unknown [id number] 2.16.84 0.1.746783.3.579.2.593 1960 Unknown [id number] 2.16.84 0.1.485506.3.579.2.593 1960 Unknown [id number] 2.16.84 0.1.074805.3.579.2.593 1960 Unknown [id number] 2.16.84 0.1.188934.3.579.2.593 1960 Unknown [id number] 2.16.84 0.1.386172.3.579.2.593 1960 Unknown [id number] 2.16.84 0.1.308880.3.579.2.593 1960 Unknown [id number] 2.16.84 0.1.126094.3.579.2.593 1959 Unknown [id number] Medicare Self Pay [id number] Self-pay Self Pay [id number] Social History Date Type Detail Facility Tobacco smoking status NHIS Unknown if ever smoked [facility] Start: 1960 Sex Assigned At Male F [facility] Start: 08-18-2020 Tobacco smoking status NHIS Unknown if ever smoked [facility] Start: 08-22-2020 Tobacco smoking status NHIS Never smoked tobacco (finding) [facility] Sex Assigned At Sex Assigned At [facility] [place] [employer] Other Goals Date Patient Goal Desired Activity /State Functional Status Date Assessment Result Facility 08-25-2020 Functional status Patient at Baseline [facility] Mental Status Date Assessment Result Facility 08-25-2020 Cognitive function Cognitive Sta tus Patient at Baseline [facility] Clinical Notes 07-15-2020 to 08-20-2022 Note Date & Type Note Facility 08-20-2022 Note PROCEDURE: XR FOOT L T MIN 3 VIEWS HISTORY: Postoperative visit COMPARISON: XR foot left 07/31/2022 FINDINGS: BONES:Prior amputation of the forefoot at level of the tarsal-metatarsal joints. Generalized osteopenia. No periosteal reaction or appreciable bone destruction. SOFT TISSUES:Prominent soft tissue swelling surrounding the foot. Subtle contains air within the posterior mid calf. Wound VAC projecting over lower leg. EFFUSION:None visible. OTHER: Negative. IMPRESSION: 1. Stable surgical changes and amputation of the forefoot. 2. Subcutaneous air and wound VAC involving mid-distal calf. Electronically authenticated by: PRISCA SANDERSON Date: 2022-08-20 13:00 [facility] 08-15-2022 Note EXAM: XR CHEST 2 V HISTORY: Pre-surgery evaluation COMPARISON: 09/12/2021 TECHNIQUE: Upright PA and lateral chest x-ray FINDINGS: The heart is not enlarged and the vasculature is not distended. Linear atelectasis or scarring is seen in the mid lungs bilaterally, more prominent on the right side . There is blunting of the left costophrenic angle, which is unchanged and indicates either a small effusion or pleural thickening. No acute infiltrate or pneumothorax is identified. The osseous structures are grossly intact. IMPRESSION: Interval development of atelectasis or scarring in the mid lungs, more so on the right. The blunting of the left costophrenic angle persists, indicating either an effusion or pleural thickening. No acute infiltrate or cardiac decompensation is identified. Electronically authenticated by: CHINO CABALLERO Date: 2022-08-15 15:06 [facility] 08-01-2022 Note PROCEDURE: XR FOOT L T MIN 3 VIEWS COMPARISON: 12/21/2021 HISTORY: Pain in left foot FINDINGS: BONES:Interval removal of the external fixator. Remote amputation at the base of the metatarsals. Severe degenerative changes with joint space narrowing marginal osteophyte formation SOFT TISSUES:Calcified Achilles tendon. Diffuse soft tissue swelling. EFFUSION:None visible. OTHER: Negative. IMPRESSION: Stable remote amputation with soft tissue swelling and degenerative changes Electronically authenticated by: JAMESON SALGUERO Date: 2022-08-01 07:49 [facility] 03-01-2022 Note CONSULTATION CONSULTATION DATE: 03/01/2022 This is a 62-year-old male returning to the clinic for a 3-month follow-up for his chronic lower back pain. He was last seen on 11/30/2021 which at that time he received an upper lumbar, lower thoracic trigger point injection which gave him significant relief for roughly one month. Today he is complaining of lower mid-back pain, specifically to the right lower area. 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 He currently has a left active foot infection for which he is under the care of the wound clinic. Medications include Percocet 7.5/325 t.i.d. His PCP is alternating his diabetic medications. REVIEW OF SYSTEMS, PAST MEDICAL HISTORY, ALLERGIES AND IMAGES: Have been reviewed and noted in the chart. PHYSICAL EXAM: VITAL SIGNS: Blood pressure 127-73, heart rate is 74. Height is 6'4 , weighs 288. GENERAL APPEARANCE: Pleasant and appropriate, in no acute distress. is at bedside. FOCUSED EXAM: BACK: Range of motion is functional in lateral rotation, flexion and extension. Upon compression of his right lower muscles, positive jump response and trigger point identified to right lower rectus spinae. Compression reproduces the patient's pain symptomatology. MUSCULOSKELETAL: Motor is 4 out of 5 bilaterally. Slight limp to the left foot secondary to his surgical shoe and active wound to the foot. NEUROLOGICAL: Diffuse 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 bilateral lower extremities. Blunted patellar and Achilles reflexes. DIAGNOSIS: Right lumbar paravertebral spasms. Lumbar spondylosis. PLAN: The patient received a right lumbar trigger point injection in the office today which she does consent to. We will refill his Percocet 7.5/325 t.i.d. Nutrition and vitamin importance was discussed and the patient was highly encouraged to be consistent with a multivitamin. We will see him in three months' time unless otherwise indicated. The patient agrees with the plan of care. [facility] 03-01-2022 Note CONSULTATION PROCEDURE DATE: 03/01/2022 PREOPERATIVE DIAGNOSIS: Right lumbar paravertebral spasm. POSTOPERATIVE DIAGNOSIS: Right lumbar paravertebral spasm. PROCEDURE: Right lumbar trigger point injection. Subsequent to obtaining informed consent, the patient was placed in the upright standing forward flexion position. Alcohol prep was used to sterilize the site. A 25 gauge needle with 0.125% Marcaine and 40 mg of Kenalog was placed to rest inside the trigger zone. Negative heme. Medication was injected in a slow, fan-like pattern and patient tolerated procedure well. [facility] 12-22-2021 Note PROCEDURE: XR ANKLE LT MIN 3 V, XR TIB_FIB LT 2V, XR FOOT LT MIN 3 VIEWS HISTORY: Postoperative visit COMPARISON: None. FINDINGS: BONES:External fixation device surrounding the distal lower extremity from mid calf through foot. Amputation of the forefoot. SOFT TISSUES:Soft tissue swelling. Wound VAC along the plantar surface of midfoot. EFFUSION:None visible. OTHER: Negative. IMPRESSION: 1. External fixation device surrounding the distal left lower extremity. 2. Prior forefoot amputation. 3. Wound VAC along plantar surface of the midfoot. Electronically authenticated by: PRISCA SANDERSON Date: 2021-12-22 10:12 [facility] 12-22-2021 Note PROCEDURE: XR ANKLE LT MIN 3 V, XR TIB_FIB LT 2V, XR FOOT LT MIN 3 VIEWS HISTORY: Postoperative visit COMPARISON: None. FINDINGS: BONES:External fixation device surrounding the distal lower extremity from mid calf through foot. Amputation of the forefoot. SOFT TISSUES:Soft tissue swelling. Wound VAC along the plantar surface of midfoot. EFFUSION:None visible. OTHER: Negative. IMPRESSION: 1. External fixation device surrounding the distal left lower extremity. 2. Prior forefoot amputation. 3. Wound VAC along plantar surface of the midfoot. Electronically authenticated by: PRISCA SANDERSON Date: 2021-12-22 10:12 [facility] [place] 12-22-2021 Note PROCEDURE: XR ANKLE LT MIN 3 V, XR TIB_FIB LT 2V, XR FOOT LT MIN 3 VIEWS HISTORY: Postoperative visit COMPARISON: None. FINDINGS: BONES:External fixation device surrounding the distal lower extremity from mid calf through foot. Amputation of the forefoot. SOFT TISSUES:Soft tissue swelling. Wound VAC along the plantar surface of midfoot. EFFUSION:None visible. OTHER: Negative. IMPRESSION: 1. External fixation device surrounding the distal left lower extremity. 2. Prior forefoot amputation. 3. Wound VAC along plantar surface of the midfoot. Electronically authenticated by: PRISCA SANDERSON Date: 2021-12-22 10:12 [facility] [place] 12-22-2021 Note PROCEDURE: XR ANKLE LT 2V HISTORY: Pain ; left ankle external fixation application COMPARISON: None. FINDINGS: BONES:3 intraoperative spot fluoroscopic images demonstrate external fixation device surrounding the left ankle. IMPRESSION: External fixation device application. Electronically authenticated by: PRISCA SANDERSON Date: 2021-12-22 10:07 [facility] [place] 12-12-2021 Note PROCEDURE: XR FOOT L T MIN 3 VIEWS HISTORY: Pain in left foot ; plantar foot pain, heel ulcer COMPARISON: XR foot left 11/13/2021 FINDINGS: BONES:Prior amputation of the forefoot at level of the tarsal-metatarsal joints. SOFT TISSUES:Soft tissue defect/wound at medial plantar margin extending to the medial cuneiform with what appear to be destructive osseous changes. EFFUSION:None visible. OTHER: Negative. IMPRESSION: 1. Prior forefoot amputation. 2. Soft tissue wound/ulcer and suspected osteomyelitis involving the medial cuneiform. Electronically authenticated by: PRISCA SANDERSON Date: 2021-12-12 08:04 [facility] 11-30-2021 Note CONSULTATION The patient returns to the clinic after authorization of bilateral trigger point. PROCEDURE DATE: 11/30/2021 PRE AND POSTOPERATIVE DIAGNOSIS: Bilateral lumbar paravertebral spasms. PROCEDURE: Bilateral lumbar trigger point injections. Subsequent to obtaining informed consent, the patient was placed in the upright standard forward flexion position. Alcohol prep was used to sterilize the site in two locations. 25-gauge needle with 0.125% Marcaine and 40 mg of Kenalog was divided into two locations. The needle was placed to rest inside the trigger point, negative heme. Medication was injected in the fan-like pattern. The patient tolerated the procedure well and will be followed up in clinic in three months' time. [facility] 11-22-2021 Note CONSULTATION CONSULTATION DATE: 11/22/2021 HISTORY OF PRESENT ILLNESS: This is a 61-year-old gentleman, accompanied by his , returning to the clinic for evaluation of his lower back pain. His last office visit was 08/15/2021 which, at that time, he saw Dr. Su and he was ordered a bilateral lumbar medial branch block. His insurance approved the procedure; however, Dr. Su is not in network with his insurance; therefore, we are unable to proceed with the procedure. Current medications include Percocet 7.5/325 t.i.d., Cymbalta and wellbutrin. He is on a multivitamin along with clinic's written regimen. He presents today with pain 7/10, describes as pressure and sharp. The pain is diffusely across his back and is non-radicular in nature. Patient currently has an active left foot infection and has a boot in place. He did have a wound debridement surgery, which was early October of this month. He is currently on a Bactrim regimen for that infection. Patient states his activity is extremely low at this time, because he is non-weight bearing on this foot and due to his lower back pain. He is in a wheelchair today. Patient's REVIEW OF SYSTEMS / PAST MEDICAL HISTORY / ALLERGIES and IMAGES have been reviewed and they are noted on the chart. PHYSICAL EXAM: VITAL SIGNS: Blood pressure 146/79, heart rate is 58. Temperature is 98. He is 6'4 and weighs 205 pounds. GENERAL APPEARANCE: Pleasant, appropriate, in no acute distress. FOCUSED EXAM: Minimal physical exam due to patient being non-weight bearing and in a wheelchair due to his left foot. MUSCULOSKELETAL: Examined in the wheelchair. Patient has diffuse muscle atrophy noted to bilateral lower extremities. BACK: Upon patient leaning forward in the wheelchair, paravertebral muscles were taut, spasmodic with trigger points identified to bilateral locations along the lower lumbar region. Positive jump response to palpation which does reproduce the patient's pain symptomatology. Spinal axial pain is reproduced as well along the posterior elements of the facets of L2, L3 and L4, L5 bilaterally. NEUROLOGICAL: Patient has bilateral lower extremity diffuse neuropathy. IMPRESSION: Bilateral paravertebral spasms, lumbar spondylosis, lumbar degenerative disc disease. PLAN: We will pre-authorize for bilateral lumbar trigger injections and the patient will be called to return to the clinic once that is met. He is to continue with his vitamins and pain medication as directed. Patient does agree to move forward with the trigger point authorization and he will return to the clinic to receive those. [facility] 11-14-2021 Note PROCEDURE: XR FOOT L T MIN 3 VIEWS HISTORY: Pain in left foot ; increasing left heel pain COMPARISON: XR foot left 11/07/2021 FINDINGS: BONES:Forefoot amputation at base of metatarsals. Midfoot moderate degenerative changes and mild osteopenia. Calcaneal plantar spur and calcifications within the antrum aponeurosis. SOFT TISSUES:Soft tissue swelling surrounding the foot. Calcification along the Achilles tendon possibly from remote injury. EFFUSION:None visible. OTHER: Negative. IMPRESSION: 1. Stable surgical changes without appreciable acute abnormality or findings to account for patient's heel pain. 2. Calcification within plantar aponeurosis; possibly chronic plantar fasciitis. Electronically authenticated by: PRISCA SANDERSON Date: 2021-11-14 15:42 [facility] 11-07-2021 Note PROCEDURE: XR FOOT L T MIN 3 VIEWS COMPARISON: 09/11/2021 HISTORY: Pain in left foot FINDINGS: BONES:Stable amputation at the midfoot forefoot junction. Moderate to severe degenerative changes with joint space narrowing and marginal osteophyte formation. No new focal lytic or sclerotic changes SOFT TISSUES:Moderate diffuse soft tissue swelling. EFFUSION:None visible. OTHER: Negative. IMPRESSION: Diffuse soft tissue swelling. No definite plain film evidence of osteomyelitis Electronically authenticated by: JAMESON SALGUERO Date: 2021-11-07 19:28 [facility] [place] 03-21-2021 Evaluation note Encounter Date Diagnosis Assessment Notes Feb, CKD (chronic kidney disease) stage 4, GFR 15-29 ml/min (ICD-10 - N18.4) He has advanced chronic kidney disease related to diabetes. He used to be on dialysis in 2018 however he has partial recovery of renal function. Serum creatinine is variable between 3 to 4 mg/dL according to the volume status and blood pressure. He is back on furosemide 40 mg once a day for edema and shortness of breath. Potassium is normal when blood sugar is well controlled. Patient is high risk for progression of CKD to ESRD and require dialysis again. Will monitor renal function every 3 to 4-month or as needed. He will call our office if he has more edema to increase diuretics. Feb, Diabetic nephropathy (ICD-10 - E11.21) Patient has longstanding diabetes with multiple complications on insulin. Hemoglobin A1c 10.5%, he was advised that diabetes is uncontrolled and may contribute to progression of CKD. Patient follow-up with his family doctor. He is currently on insulin and GLP-1 agonist. Feb, Hypertensive chronic kidney disease w stg 1-4/unsp chr kdny (ICD-10 - I12.9) Blood pressure seems to be controlled however did drop significantly when he stand sometimes was dizziness and syncope. He takes midodrine as needed for orthostatic hypotension. He was advised to stand slowly. He is on multiple psychiatric medications. He was advised to talk with his PCP to see if he can get off some of his psychiatric medications. Feb, Hyperlipidemia (ICD-10 - E78.5) Follow-up with PCP Feb, Hyperparathyroidism due to 1,25(0H)2d3 (ICD-10 - N25.81) Intact PTH was not done with this lab. Will reorder. Calcium, phosphorus and intact H were at target. Feb, Anemia in chronic kidney disease (ICD-10 - D63.1) He has mild anemia of chronic kidney disease. Hemoglobin more than 10 g/dL. We will monitor every 3 to 4 months. Feb, Other Patient has dizziness with possible vertigo. He is really on meclizine. He takes midodrine as well as stated above. [facility] 03-27-2021 NoteMR#: [id number] [facility] Pt. Name: Rashard Lyman Admitted: 07/13/2020 Discharged: 07/22/2020 Date of : 1960 Physician: Savannah Reynolds MD DISCHARGE SUMMARY FINAL DIAGNOSES: 1. Large left pleural effusion, loculated. 2. Acute kidney injury on chronic kidney disease. 3. CO2 narcosis. 4. Insulin-dependent diabetes mellitus with neuropathy with episodes of hypoglycemia. 5. Constipation. 6. Presentation with chest pain to rule out ACS. 7. Left plantar and dorsal aspect diabetic foot ulcers. 8. Psoriatic arthritis. 9. Morbid obesity. 10. Gastroesophageal reflux disease. 11. Hypertension. 12. Dyslipidemia. 13. Chronic obstructive pulmonary disease. 14. Benign prostatic hyperplasia. 15. Acute urinary retention. HISTORY OF PRESENT ILLNESS AND HOSPITALIZATION COURSE: The patient is a 60-year-old male with past medical history significant for morbid obesity, COPD, uncontrolled diabetes mellitus with diabetic foot ulcers. The patient had been immobile due to complications of diabetic left foot infection for almost 3 years. He returned to ambulation about 5 to 6 months ago and he had been doing well until 3 weeks ago when he started noticing that he is getting short of breath with exertion and had a productive cough around the same time. The sputum was clear for most of the time. He denied any fever or chills. Over the next 3 weeks, the patient has been having worsening in his dyspnea to the point he can barely move without dyspnea. With this, he also developed chest pressure about 2 weeks ago, which is mostly on the left side of the sternum and is constant in nature. The patient was in the process of preop evaluation for further left foot grafting. He was having an outpatient stress test, which was not completed due to chest pain. Also, there is mention on [facility] records of large inferior/lateral wall abnormality in the RCA distribution. The patient was admitted to the medical floor. His hospitalization course by problem list is as follows: 1. Large left pleural effusion, loculated. The patient was seen by Pulmonary team. CT scan showed loculated effusions involving the left side of the chest. He had thoracentesis done initially and 1700 mL were removed. They were negative for malignancy, but they showed eosinophilia with 11% and they were exudative in nature. He had repeat chest x-ray after his thoracentesis, which showed no improvement in the pleural effusion. He had another CT scan of the chest, which showed loculated effusions and the patient underwent thoracoscopy with the Pulmonary team on July 19 and he was found to have pleural adhesions more likely related to pneumonia. Biopsies were obtained and the patient was started on Augmentin. Pulmonary team recommended 2 weeks of Augmentin until he follows up with them in the clinic. The patient had a chest tube inserted after the thoracoscopy and was removed on July 21, 2020. 2. Presentation with chest pain to rule out ACS. The patient was seen by Cardiology team. They do not think this is related to ACS. He had an echocardiogram, which showed no regional wall motion abnormality with an EF of 55%. He was initially on heparin drip, but Cardiology recommended against that and they signed off on him. 3. Insulin-dependent diabetes mellitus with neuropathy. The patient was found to have an A1c of 11.9. He is on high dose of Tresiba at home. The patient was initially resumed on his home dose of insulin, but he was found to have hypoglycemia. He was seen by Endocrinology services. He was requiring 17 units of Lantus along with the correction sliding scale coverage with meals, which was enough to control his blood sugars as an inpatient. Endocrinology recommended for him to be compliant with his medications and to be on Tresiba at 35 units daily along with the correction sliding scale and to follow up with them as an outpatient. 4. Acute kidney injury on CKD stage 4. The patient was seen by Nephrology team. Apparently, he required dialysis in the past. His fistula was checked on this time by Vascular team, who recommended that he will need fistulogram in case he needs to be back on dialysis. 5. CO2 narcosis. The patient was found to have hypercapnia. He might have an underlying obstructive sleep apnea or obesity hypoventilation syndrome. It was advised that he will need to have a sleep study arranged through his PCP and he acknowledges that. The patient was discharged in stable condition on July 22, 2020. On the day of discharge, he was evaluated by respiratory therapist for home O2 needs and he did not qualify for that. The patient was instructed that he will need to have to keep his appointment with the Pulmonary team as scheduled and to seek medical attention if he develops any worsening in his shortness of breath or chest pain. MEDICATIONS ON DISCHARGE: A (more content not included)...[facility]03-19-2021 NoteMR#: [id number] [facility] Pt. Name: Rashard Lyman Surgery Date: 07/14/2020 Room #: [id number] Date of : 1960 PROCEDURE NOTE ATTENDING: Nima Wynne MD Ultrasound Guided Thoracentesis Procedure Note Name: Rashard Lyman Date: 07/14/2020 Pre-operative Diagnosis: Left pleural effusion Post-operative Diagnosis: Left pleural effusion Indications: Therapeutic and diagnostic Consent: Informed consent was obtained. Risks of the procedure were discussed including: infection, bleeding, pain, pneumothorax. Procedure Details: Ultrasound was used to localize the pleural effusion. Under sterile conditions the patient was positioned. Chlorhexidine solution and sterile drapes were utilized. 1% lidocaine was used to anesthetize the rib space. Fluid was obtained without any difficulties and minimal blood loss. A dressing was applied to the wound and wound care instructions were provided. Findings: 1700 ml of bloody pleural fluid was obtained. A sample was sent to Pathology for cytogenetics, flow, and cell counts, as well as for infection analysis. Complications: None; patient tolerated the procedure well. Condition: stable Plan: A follow up chest x-ray was ordered. Performed by: Dr. Davis Pham MD Attending: Dr. Nima Wynne MD Electronically Signed by: Nima Wynne MD 07/15/2020 04:23 P Nima Wynne MD I was present for the entire procedure. Date Dict: 07/15/2020/01:32 P/Davis Pham MD Date Trans: 07/15/2020 01:32 P/ [id number] cc: Nima Wynne MD [address] [address] NoteMR#: [id number] [facility] Pt. Name: Rashard Lyman Surgery Date: 07/14/2020 Room #: [id number] Date of : 1960 PROCEDURE NOTE ATTENDING: Nima Wynne MD Procedure: Left sided US guided Thoracentesis Pre-procedure Diagnosis: Left pleural effusion Post-procedure Diagnosis: same as above Prior to Procedure: Informed Consent:The risks, benefits, indications, potential complications, and alternatives were explained to the patient/family and informed consent obtained Attending Staff: Nima Wynne Resident/Fellow/PROPAGATION WORKER: Davis Pham Indications: Nura Munoz is 60 year old man with a new large left sided effusion The identity of the patient was confirmed and a bedside time out was performed. Description of Procedure: Patient positioned, prepped and draped in usual sterile fashion. Fluid collection identified at bedside by MD/US marking of pleural fluid done on the left side. 1% Lidocaine without epinephrine was used to anesthetize the area. An arrow thoracentesis kit was used to enter the plural space and the catheter introduced over the needle. Pleural fluid was then aspirated as described below. Post procedure chest x-ray pending. Complications:None Findings:Large left pleural effusion Total Fluid Removed: 1600 mL Color of Fluid: serosanguinous Sent for: Micro, chemistry, and cytology Estimated blood loss: < 5 ml Nima Wynne MD Interventional Pulmonary medicine Electronically Signed by: Nima Wynne MD 07/15/2020 01:00 P Nima Wynne MD Date Dict: 07/15/2020/12:53 P/Nima Wynne MD Date Trans: 07/15/2020 12:53 P/ [id number] [facility] Diagnosis Onset Date Resolution Status Hyperglycemia acute Pneumonia acute Psoriasis acute 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 acute CKD (chronic kidney disease) stage 4, GFR 15-29 ml/min chronic COPD (chronic obstructive pulmonary disease) chronic 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 [place] buck[place] vasiliy GERD (gastroesophageal reflux disease) chronic Obesities, morbid chronic Peripheral vascular occlusive disease chronic 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 Diagnosis Onset Date Resolution Status MARISOL (acute kidney injury) ac [place] Anemia of renal disease acut e Atelectasis of left lung acu te Fibrothorax acute History of pleural effusion acute Metabolic acidosis acute Pericarditis acute Pleuritic chest pain acute Psoriasis acute 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 acute CKD (chronic kidney disease) stage 4, GFR 15-29 ml/min chronic COPD (chronic obstructive pulmonary disease) chronic 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 [place] buck[place] vasiliy GERD (gastroesophageal reflux disease) chronic Hypertension chronic [id number] chronic Obesities, morbid chronic Peripheral vascular occlusive disease chronic Status post [facility] toe [facility] right foot [facility] - Reported* Type Description Date Medical History ESRD Medical History MO Medical History HTN Medical History DM Medical History COPD Medical History Allergic reaction to Vicryl Sutures use Monofilament sutures Medical History LOW BACK PAIN/ HAIRLINE FRACTURE Surgical History Dialysis catheter placements Surgical History Right 5th toe amputation Surgical History Creation rigth radiocephalic AV F 06/2014 Surgical History Revision right Cimin o AVF by transposition of cephalic vein to subcuticular position/fistulogram/balloon angioplasty cephahlic vein inflow stenosis 10/2014 Surgical History all toes removed from left foot Surgical History appendectomy Surgical History gall bladder removed Surgical History LEFT FOOT WOUND AND AMPUTATION OF ALL TOES 2019 Surgical History INJECTIONS IN HIS LOWER BACK Hospitalization History see above [facility] Other Hospital Discharge instructions Additional Instructions You are scheduled for an outpatient follow up ECHOCARDIOGRAM in 2 weeks at [facility] to re-assess your pericardial effusions on 09/06/2020 at 12:30pm. HOME HEALTH TO MANAGE: Full code Nursing to eval and treat Monitor VS per protocol Monitor cardiovascular, respiratory and skin assessments Please draw a Renal Panel on 08/29/20. Send to Dr. Juarez and Dr. Pollack. Assist with medication management Assist with glucose control Wound care daily to the right richard: *Flush with normal saline, pat dry. Apply hydrogel, adaptic, gauze, conform *Wrap with ines wrap from base of toes to the knee Educate on high risk fall precautions [facility] Ass[facility]ments No Assessments Information Available Advance Directives No Advanced Directives Records Found Advance Directive Response Recorded Date/ Time Advance Directives No September 30 3:34pm Chief Complaint and Reason for Visit Chief Complaint Difficulty breathing pain in lung area Reason for Visit Hyperglycemia Pneumonia Psoriasis Type 2 diabetes mellitus with diabetic chronic kidney disease CKD (chronic kidney disease) stage 4, GFR 15-29 ml/min COPD (chronic obstructive pulmonary disease) 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 GERD (gastroesophageal reflux disease) Obesities, morbid Peripheral vascular occlusive disease Status post amputation of toe of right foot Chief Complaint Difficulty breathing pain in lung area Reason for Visit MARISOL (acute kidney in [place]) Anemia of renal disease Atelectasis of left lung Fibrothorax History of pleural effusion Metabolic acidosis Pericarditis Pleuritic chest pain Psoriasis Type 2 diabetes mellitus with diabetic chronic kidney disease CKD (chronic kidney disease) stage 4, GFR 15-29 ml/min COPD (chronic obstructive pulmonary disease) 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 GERD (gastroesophageal reflux disease) Hypertension [id number] Obesities, morbid Peripheral vascular occlusive disease Status post amputation of toe of right foot Chief Complaint Difficulty breathing pain in lung area Pericardial Effusion Reason for Visit MARISOL (acute kidney in jury) Anemia of renal disease Atelectasis of left lung Fibrothorax History of pleural effusion Metabolic acidosis Pericarditis Pleuritic chest pain Psoriasis Type 2 diabetes mellitus with diabetic chronic kidney disease CKD (chronic kidney disease) stage 4, GFR 15-29 ml/min COPD (chronic obstructive pulmonary disease) 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 GERD (gastroesophageal reflux disease) Hypertension [id number] Obesities, morbid Peripheral vascular occlusive disease Status post amputation of toe of right foot Chief Complaint Difficulty breathing pain in lung area Pericardial Effusion COPD Reason for Visit MARISOL (acute kidney in jury) Anemia of renal disease Atelectasis of left lung Fibrothorax History of pleural effusion Metabolic acidosis Pericarditis Pleuritic chest pain Psoriasis Type 2 diabetes mellitus with diabetic chronic kidney disease CKD (chronic kidney disease) stage 4, GFR 15-29 ml/min COPD (chronic obstructive pulmonary disease) 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 GERD (gastroesophageal reflux disease) Hypertension [id number] Obesities, morbid Peripheral vascular occlusive disease Status post amputation of toe of right foot Summary Purpose Family History No Family History Records Found Additional Source Comments (unrecognized sect ion and content) No Status Records FoundNo Status Records FoundNo Status Records FoundNo Status Records FoundNo Status Records Found INFORMATION SOURCE (unrecogn ized section and content) DATE CREATED AUTHOR 09/11/2020 [facility] DATE CREATED AUTHOR AUTHOR'S ORGANIZ ATION 10/21/2020 [facility] DATE CREATED AUTHOR AUTHOR'S ORGANIZ ATION 08/03/2021 [facility] DATE CREATED AUTHOR AUTHOR'S ORGANIZ ATION 10/05/2022 [facility] DATE CREATED AUTHOR AUTHOR'S ORGANIZ ATION 02/28/2023 [facility] Goals (unrecognized section and content) Goals may be documented in a n alternate sectionNo Information REASON FOR VISIT (unrecogniz ed section and content) RENAL 3 month follow up CKD stage IV, was on HD in 2018 FOR RECORDS PERTAINING TO PATIENTS WHO ARE OR HAVE BEEN ENROLLED IN A CHEMICAL DEPENDENCY/SUBSTANCEABUSE PROGRAM, SOME INFORMATION MAY BE OMITTED. This clinical summary was aggregated from multiple sources. Caution should be exercised in using it in the provision of clinical care. This summary normalizes information from multiple sources, and as a consequence, information in this document may materially change the coding, format and clinical context of patient data. In addition, data may be omitted in some cases. CLINICAL DECISIONS SHOULD BE BASED ON THE PRIMARY CLINICAL RECORDS. [facility] [employer] [facility]. provides no warranty or guarantee of the accuracy or completeness of information in this document.
--- NOTE | 2023-05-01 12:25 | MR_ITS ---
The [address] [address] Patient Name: RASHARD TAN MRN: [id number] date: 1960 Sex: M Assigned Patient Location: MRI Current Patient Location: Accession/Order Number: [id number] Exam Date: 05/01/2023 12:47 Report Date: 05/02/2023 08:25 At the request of: CHINO ELLIOTT Procedure: MR foot LT wo con EXAM: MR foot LT wo con REASON FOR EXAM: chronic non healing ulceration. TECHNIQUE: Multiplanar, multisequence imaging of the left foot was performed without contrast COMPARISON: Plain radiograph 04/09/2023. FINDINGS: There are surgical changes from midfoot amputation at the level of the TMT joints. There is diffuse subcutaneous edema skin thickening. There is intermediate grade soft tissue ulceration along the dorsal margin of the amputation at the expected location of the second and third metatarsal bases. No definite evidence of abnormal marrow signal identified to suggest osteomyelitis at this time. The visualized midfoot is congruent with moderate osteoarthritis. There is an osteochondral defect involving the medial talar dome spanning 1.7 cm in craniocaudal dimension. Fluid: Signal undercuts the defect potentially reflecting instability. The subtalar joint is congruent. The sinus tarsi is narrowed and edematous. There is a bone infarct is noted in the distal tibia. No acute fracture identified. Moderate Achilles tendinosis without tear. Chronic plantar fasciopathy with fluid: Signal involving the medial cord potentially reflecting intermediate to high-grade partial tear. No significant edema identified within the subjacent calcaneus. MR/MR foot LT wo con IMPRESSION: 1. Surgical changes from midfoot amputation. No MRI evidence of osteomyelitis identified. 2. 1.7 cm unstable osteochondral defect involving the medial talar dome. 3. Suspect focal intermediate to high-grade partial tear of the medial cord of the plantar fascia at the level the calcaneus. 4. 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 5. Achilles tendinosis without tear Electronically authenticated by: MICHAEL PINON Date: 05/02/2023 08:25
== END 2023-05-01 12:19 | disposition home or self-care (01) ==
LOC: MRI 12:19
PROVIDERS: PCP Podiatrist Foot & Ankle Surgery; Visit Provider Podiatrist Foot & Ankle Surgery
DX: L97.529 Non-pressure chronic ulcer of other part of left foot with unspecified severity (principal); T81.89XA Other complications of procedures, not elsewhere classified, initial encounter
CPT/HCPCS: 73718

== ENCOUNTER 2023-05-03 12:25 | Outpatient (OUT) | payer BC, SELFPAY ==
--- OUTSIDE RECORDS SUMMARY | 2023-05-03 12:29 | XMS_ITS | CCD ---
Author Name Unknown Address [address] [place] [address] Organization [facility] Care Team Providers Care Forensic Manager Name Role Phone Jose Juarez Primary Care Provider Eugene Morel Admit Provider [phone] Eugene Morel Attending Provider [phone] Gordon Ewing Attending Provider [phone] Gautam Bazan Attending Provider [phone] SAVANNAH REYNOLDS Admitting Unavailable SAVANNAH REYNOLDS Attending Unavailable JOSE JUAREZ Primary Care Unavailable JOSE JUAREZ Referring Unavailable DC Procedure Practitioner Unavailab TRISHA Ozuna Surgeon Unavailable NIMA WYNNE Surgeon Unavailable DC Procedure Practitioner Unavailab Jose Andres Primary Care Provider Eugene Morel Admit Provider [phone] Gordon Ewing Attending Provider [phone] Gautam Bazan Attending Provider [phone] Latrice Lehman Attending Provider PROVIDER, UNKNOWN Attending [...] Consulting Unavailable FAWWAD, MOSES H Consulting Unavailable KERIVN ., VIDAL SAHNI Consulting Unavailable BURSIAN, YASMIN Consulting Unavailable HIGHLANDER, CHINO D Admitting Unavailable HIGHLANDER, CHINO D Attending Unavailable HIGHLANDER, CHINO Hopson Consulting Unavailable VALONE, DR GARCIA Primary Care Unavailable SU ., DR CARLOS EDUARDO Carmona Admitting Unavailable SU ., DR CARLOS EDUARDO Carmona Attending Unavailable VALONE, DR GARCIA Primary Care Unavailable HERNANDEZ ., MARGIE Vaughn Unavailable HIGHLANDER, CHINO Hopson Attending Unavailable VALONE, [...] (1 source) exenatide Drug Allergy 07-14-19 [facility] NSAIDs (5 sources) celecoxib; Translations: [Celebrex] Drug Allergy 07-14-19 21 Difficulty Breathing [facility] Phenolphthalein (1 source) Phenolphthalein Drug Allergy 07-14-19 21 [facility] (2 sources) celecoxib; Translations: [celecoxib] Drug Allergy Difficulty Breathing, bad for kidney [facility] (1 source) Aspirin Drug Allergy bad for kidney [employer] Other (1 source) Amoxicillin Drug Allergy 07-09-19 20 [facility] (1 source) celecoxib Drug Allergy 07-09-19 20 [facility] (1 source) exenatide Drug Allergy 07-09-19 20 [facility] (1 source) Phenolphthalein Drug Allergy 07-09-19 20 [facility] Medications Current Medications Medication Drug [...] 3 Chronic Other aftercare (5 sources) Other buttermaker (current) drug therapy; Translations: [OTH HOME OFFICE CLAIM SPECIALIST CURRENT DRUG THERAPY] Onset: 3 Episodic Other [...] Onset: 06-27-2022 Episodic Other aftercare (1 source) 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 [address] Architecture Faculty Member: Jameson Aaron MD BUN/CRE Ratio 16 Normal - [facility] Comment on above: Performed By: #### S ED, CRP, BMP, CDP #### [facility] [address] [place], [place] [id number] Architecture Faculty Member: Jameson Aaron MD Calcium [Mass/Vol] 9.4 mg/dL Normal 8.6-10.4 [facility] Comment on above: Performed By: #### S ED, CRP, BMP, CDP #### [address] [place], [place] [id number] Architecture Faculty Member: Jameson Aaron MD Chloride [Moles/Vol] 98 mmol/L Normal 98-107 [facility] Comment on above: Performed By: #### S ED, CRP, BMP, CDP #### [facility] [address] [place], [place] [id number] Architecture Faculty Member: Jameson Aaron MD CO2 [Moles/Vol] 18 mmol/L Low - [facility] Comment on above: Performed By: #### S ED, CRP, BMP, CDP #### [facility] [address] [place] [address] Architecture Faculty Member: Jameson Aaron MD Creatinine [Mass/Vol] 2.7 mg/dL High 0.7-1.2 [facility] Comment on above: Performed By: #### S EDLACIE BMP, CDP #### [facility] [address] [place] [address] Architecture Faculty Member: Jameson Aaron MD GFR/1.73 sq M.predicted among non-blacks MDRD (S/P/Bld) [Vol rate/Area] 26 mL/min/{1.73_m2} Low >60 [facility] Comment on above: Result Comment: These results [...] #### S LACIE MANRIQUE BMP, CDP #### [facility] [address] [place] [address] Architecture Faculty Member: Jameson Aarno MD Glucose [Mass/Vol] 268 mg/dL High 70-99 [facility] Comment on above: Performed By: #### S LACIE MANRIQUE BMP, CDP #### [facility] [address] [place], [place] [id number] Architecture Faculty Member: Jameson Aaron MD Potassium [Moles/Vol] 5.2 mmol/L Normal 3.7-5.3 [facility] Comment on above: Performed By: #### S LACIE MANRIQUE BMP, CDP #### [facility] [address] [place] [address] Architecture Faculty Member: Jameson Aaron MD Sodium [Moles/Vol] 127 mmol/L Low 135-144 [facility] Comment on above: Performed By: #### S LACIE MANRIQUE, BMP, CDP #### [facility] [address] [place] [address] Architecture Faculty Member: Jameson Aaron MD Urea nitrogen [Mass/Vol] 44 mg/dL High 8-23 [facility] Comment on above: Performed By: #### S ED, CRP, BMP, CDP #### [facility] [address] [place], [place] [address] Architecture Faculty Member: Jameson Aaron MD C-Reactive Proteinon 023 CRP [Mass/Vol] 131.1 mg/L High 0.0-5.0 [facility] Comment on above: Performed By: #### S ED, CRP, BMP, CDP #### [facility] [address] [place], [place] [id number] Architecture Faculty Member: Jameson Aaron MD CBC with Diffon 02-27-2023 Abs. Basophil 0.06 k/uL Normal 0.00-0.20 [facility] Comment on above: Performed By: #### S ED, CRP, BMP, CDP #### [facility] [address] [place] [address] [place] [address] Architecture Faculty Member: Jameson Aaron MD Abs.Imm.Granulocyte 0.11 k/uL Normal 0.00-0.30 [facility] Comment on above: Performed By: #### S ED, CRP, BMP, CDP #### [address] [place] [address] Architecture Faculty Member: Jameson Aaron MD Abs.Neutrophil (Seg) 6.83 k/uL Normal 1.50-8.10 [facility] Comment on above: Performed By: #### S ED, CRP, BMP, CDP #### [facility] [address] [place] [address] Architecture Faculty Member: Jameson Aaron MD Basophils/100 WBC (Bld) 1 % Normal 0-2 [facility] Comment on above: Performed By: #### S ED, CRP, BMP, CDP #### [facility] [address] [place] [address] [place] [address] Architecture Faculty Member: Jameson Aaron MD Eosinophils (Bld) [#/Vol] 0.22 10*3/uL Normal 0.00-0.44 [facility] Comment on above: Performed By: #### S ED, CRP, BMP, CDP #### [facility] [address] [place] [address] Dr[place], [place] [id number] Architecture Faculty Member: Jameson Aaron MD Eosinophils/100 WBC (Bld) 2 % Normal 1-4 [facility] Comment on above: Performed By: #### S ED, CRP, BMP, CDP #### [address] [place] [id number] Architecture Faculty Member: Jameson Aaron MD Erythrocyte distribution width (RBC) [Ratio] 14.6 % High 11.8-14.4 [facility] Comment on above: Performed By: #### S ED, CRP, BMP, CDP #### [address] [place], [facility] Architecture Faculty Member: Jameson Aaron MD Hematocrit (Bld) [Volume fraction] 41.9 % Normal 40.7-50.3 [facility] Comment on above: Performed By: #### S ED, CRP, BMP, CDP #### [address] [place] [id number] Architecture Faculty Member: Jameson Aaron MD Hemoglobin (Bld) [Mass/Vol] 13.2 g/dL Normal 13.0-17.0 [facility] Comment on above: Performed By: #### S ED, CRP, BMP, CDP #### [address] [place] [address] Architecture Faculty Member: Jameson Aaron MD Immature granulocytes/100 WBC (Bld) 1 % High 0 [facility] Comment on above: Performed By: #### S ED, CRP, BMP, CDP #### [address] [place], [facility]83 Architecture Faculty Member: Jameson Aaron MD Lymphocytes (Bld) [#/Vol] 1.83 10*3/uL Normal 1.10-3.70 [facility] Comment on above: Performed By: #### S ED, CRP, BMP, CDP #### [facility] [address] [place], [place] [id number] Architecture Faculty Member: Jameson Aaron MD Lymphocytes/100 WBC (Bld) 18 % Low 24-43 [facility] Comment on above: Performed By: #### S ED, CRP, BMP, CDP #### [facility] [address] [place], [place] [address]83 Architecture Faculty Member: Jameson Aaron MD MCH (RBC) [Entitic mass] 28.2 pg Normal 25.2-33.5 [facility] Comment on above: Performed By: #### S ED, CRP, BMP, CDP #### [address] [place], [place] [id number] Architecture Faculty Member: Jameson Aaron MD MCHC (RBC) [Mass/Vol] 31.5 g/dL Normal 28.4-34.8 [facility] Comment on above: Performed By: #### S ED, CRP, BMP, CDP #### [address] [place], [place] 115[address]183 Architecture Faculty Member: Jameson Aaron MD MCV (RBC) [Entitic vol] 89.5 fL Normal 82.6-102.9 [facility] Comment on above: Performed By: #### S ED, CRP, BMP, CDP #### [address] [place], [place] [address]83 Architecture Faculty Member: Jameson Aaron MD Monocytes (Bld) [#/Vol] 1.42 10*3/uL High 0.10-1.20 [facility] Comment on above: Performed By: #### S ED, CRP, BMP, CDP #### [address] [place], [place] [id number] Architecture Faculty Member: Jamesno Aaron MD Monocytes/100 WBC (Bld) 14 % High 3-12 [facility] Comment on above: Performed By: #### S ED, CRP, BMP, CDP #### [facility] [address] [place], [place] 439[address]83 Architecture Faculty Member: Jmaeson Aaron MD Neutrophil (Seg) 64 % Normal 36-65 [facility] Comment on above: Performed By: #### S ED, CRP, BMP, CDP #### [facility] [address] [place], [place] [id number] Architecture Faculty Member: Jameson Aaron MD NRBC Automated 0.0 per 100 WBC Normal 0.0 [facility] Comment on above: Performed By: #### S ED, CRP, BMP, CDP #### [address] [place], [place] [id number] Architecture Faculty Member: Jameson Aaron MD Platelet mean volume (Bld) [Entitic vol] 9.4 fL Normal 8.1-13.5 [facility] Comment on above: Performed By: #### S ED, CRP, BMP, CDP #### [address] [place], [place] 0207483 Architecture Faculty Member: Jameson Aaron MD Platelets (Bld) [#/Vol] 266 10*3/uL Normal 138-453 [facility] Comment on above: Performed By: #### S ED, CRP, BMP, CDP #### [facility] [address] [place], [place] [id number] Architecture Faculty Member: Jameson Aaron MD RBC (Bld) [#/Vol] 4.68 10*6/uL Normal 4.21-5.77 [facility] Comment on above: Performed By: #### S ED, CRP, BMP, CDP #### [address] [place], [place] 318[address]83 Architecture Faculty Member: Jameson Aaron MD WBC (Bld) [#/Vol] 10.5 10*3/uL Normal 3.5-11.3 [facility] Comment on above: Performed By: #### S ED, CRP, BMP, CDP #### [facility] [address] [place], [place] [id number] Architecture Faculty Member: Jameson Aaron MD Sedimentation Rateon 023 Sedimentation Rate 114 mm/Hr High 0-20 [facility] Comment on above: Performed By: #### S ED, CRP, BMP, CDP #### [facility] [address] [place] [address] Architecture Faculty Member: Jameson Aaron MD FUNGAL CULTUREon 09-21-2022 Fungus (Mycology) Culture Final report Abnormal [facility] Comment on above: Performed By: #### C XFUN ####[facility] [address] [place] [address]Dr. Eddie Lerner Fungus Stain Final report Normal [facility] Comment on above: Performed By: #### C XFUN ####[facility] [address] [place] [address]Dr. Eddie Lerner Result 1 Comment Normal [facility] Comment on above: Result Comment: ANNEMARIE/ Calcofluor preparation: no fungus observed. Performed By: #### C XFUN ####[facility] [address] [place] [address]Dr. Eddie Lerner Result 1 Rosy albicans Abnormal [facility] Comment on above: Performed By: #### C XFUN ####[facility] [address] [place] [address]Dr. Eddie Lerner CULTURE OTHERon 08-23-2022 CULTURE OTHER Isolate 1 Enterococcus faecalis Light growth of ORGANISM 1 Enterococcus faecalis ANTIBIOTIC M.I.C RX STATUS Beta-Lactamase Neg NEG F Benzylpenicillin 0.5 S F Ampicillin <=2 S F Gentamicin High Level (synergy) SYN-R R F Streptomycin High Level (synergy) SYN-S S F Quinupristin/Dalfopristin 4 R F Linezolid 1 S F Vancomycin 1 S F Normal [facility] Comment on above: Performed By: #### O THCX ####[facility] [address] [place] [address]Dr. Eddie Lerner ACID FAST SMEAR AND CXon Acid Fast Smear Negative Normal [facility] Comment on above: Performed By: #### A FB ####[facility] [address] [place] [address]DrVaishali Lerner [employer] Specimen Processing Tissue Grinding Normal [facility] Comment on above: Performed By: #### A FB ####[facility] [address] [place] [address]DrVaishali Lerner BNPon 08-20-2022 Natriuretic peptide B (Bld) [Mass/Vol] 648.0 pg/mL Normal <=900.0 [facility] Comment on above: Performed By: #### A 1C #### [facility] [address] [place] [address] Dr. Eddie Lerner CULTURE ANAEROBICon 08-21-19 23 CULTURE ANAEROBIC Culture Observations : NO GROWTH OF ANAEROBES AT 72 HOURS. Normal [facility] Comment on above: Performed By: #### A NACX ####[facility] [address] [place], [place] [address]Dr. Eddie Lerner GLYCOHEMOGLOBIN A1Con 2022 ADA RECOMMENDATION SEE BELOW Normal [facility] Comment on above: Result Comment: ADA RECOMMENDED LIMIT 4.0 - 6.0 ADA THERAPEUTIC TARGET < 7.0 ACTION SUGGESTED > 7.0 Performed By: #### R ENAL, LIPID, LIVER, TSH #### [facility] [address] [place] [address] Dr. Eddie Lerner Glucose [Mass/Vol] 235 mg/dL Normal [facility] Comment on above: Performed By: #### R ENAL, LIPID, LIVER, TSH #### [facility] [address] [place] [address] [address] dEdie Lerner HbA1c (Bld) [Mass fraction] 9.8 % Critically high 4.5-6.2 [facility] Comment on above: Performed By: #### R ENAL, LIPID, LIVER, TSH #### [facility] [address] [place], [place] [address] Dr. Eddie PRINGLE STAINon 08-20-2022 COMMENTS NO ORGANISMS OBSERVED Normal [facility] Comment on above: Performed By: #### G STAIN ####[facility] [address] [place] [id number]. Eddie Lerner DIPHTHEROIDS Normal [facility] Comment on above: Performed By: #### G STAIN ####[facility] [address] [place] [address]Dr. Eddei Lerner EPITHELIALS Normal [facility] Comment on above: Performed By: #### G STAIN ####[facility] [address] [place] [address]Dr. Eddie Lerner FUNGAL ELEMENTS Normal [facility] Comment on above: Performed By: #### G STAIN ####[facility] [address] [place] [address]Dr. Eddie Lerner GRAM NEG BACILLI Normal [facility] Comment on above: Performed By: #### G STAIN ####[facility] [address] [place] [address]Dr. Eddie Lerner GRAM NEG DIPPLOCOCCI Normal [facility] Comment on above: Performed By: #### G STAIN ####[facility] [address] [place] [address]Dr. Eddie Lerner GRAM POS BACILLI Normal [facility] Comment on above: Performed By: #### G STAIN ####[facility] [address] [place] [address]Dr. Eddie Lerner GRAM POSITIVE COCCI Normal [facility] Comment on above: Performed By: #### G STAIN ####[facility] [address] [place] [address]Dr. Eddie Lerner GRAM STAIN SOURCE Lt Foot Bone Normal [facility] Comment on above: Performed By: #### G STAIN ####[facility] [address] [place] [address]Dr. Eddie Lerner GS_DIPTH Normal [facility] Comment on above: Performed By: #### G STAIN ####[facility] [address] [place], [place] [address]IzDr. Eddie Lerner WBC RARE Normal [facility] Comment on above: Performed By: #### G STAIN ####[facility] [address] [place], [place] [address]Dr. Eddie Lerner LIPID PROFILEon 08-20-2022 CHOL-HDL RATIO NORM SEE BELOW Normal [facility] Comment on above: Result Comment: 3.3 - 4.4 LOW RISK 4.4 - 7.1 AVERAGE RISK 7.1 - 11.0 MODERATE RISK >11.0 HIGH RISK Performed By: #### A 1C #### [facility] [address] [address] [address] Eddie Lerner Cholesterol [Mass/Vol] 137 mg/dL Normal <=200 [facility] Comment on above: Performed By: #### A 1C #### [facility] [address] [address] [address] Eddie Lerner Cholesterol in HDL [Mass/Vol] 54 mg/dL Normal 40-60 [facility] Comment on above: Performed By: #### A 1C #### [facility] [address] [place] [address] [address] Eddie Lerner Cholesterol in LDL [Mass/Vol] 63.2 mg/dL Normal [facility] Comment on above: Performed By: #### A 1C #### [facility] [address] [place] [address] [address] Eddie Lerner Cholesterol.total/C holesterol in HDL [Mass ratio] 2.5 {ratio} Normal [facility] Comment on above: Performed By: #### A 1C #### [facility] [address] [address] [address] Eddie Lerner HDL NORMAL > or = 60 mg/dl - LO W CARDIOVASCULAR RISK <40 mg/dl - HIGH CARDIOVASCULAR RISK Normal [facility] Comment on above: Performed By: #### A 1C #### [facility] [address] [place] [address] [address] Eddie Lerner LDL CALC NORMAL SEE BELOW Normal [facility] Comment on above: Result Comment: <100 mg/dl OPTIMAL 100 - 129 mg/dl NEAR OR ABOVE OPTIMAL 130 - 159 mg/dl BORDERLINE HIGH 160 - 189 mg/dl HIGH >190 mg/dl VERY HIGH Performed By: #### A 1C #### [facility] [address] [place] [address] Dr. Eddie Lerner Triglyceride [Mass/Vol] 99 mg/dL Normal <=150 [facility] Comment on above: Performed By: #### A 1C #### [facility] [address] [place] [address] Dr. Eddie Lerner VLDL CALC 19.8 mg/dL Normal [facility] Comment on above: Performed By: #### A 1C #### [facility] [address] [place] [address] Dr. Eddie Lerner LIVER PROFILEon 08-20-2022 Albumin [Mass/Vol] 2.8 g/dL Critically low 3.4-5.0 Th e [facility] Comment on above: Performed By: #### A 1C #### [facility] [address] [place] [address] Dr. Eddie Lerner Albumin/Globulin [Mass ratio] 0.6 {ratio} Normal [facility] Comment on above: Performed By: #### A 1C #### [facility] [address] [place] [address] Dr. Eddie Lerner ALP [Catalytic activity/Vol] 87 U/L Normal 46-116 [facility] Comment on above: Performed By: #### A 1C #### [facility] [address] [place] [address] Dr. Eddie Lerner ALT [Catalytic activity/Vol] 49 U/L Normal 16-63 [facility] Comment on above: Performed By: #### A 1C #### [facility] [address] [place] [address] Dr. Eddie Lerner AST [Catalytic activity/Vol] 36 U/L Normal 15-37 [facility] Comment on above: Performed By: #### A 1C #### [facility] [address] [place] [address] Dr. Eddie Lerner BILI, CONJUGATED 0.1 mg/dL Normal 0.0-0.2 [facility] Comment on above: Performed By: #### A 1C #### [facility] [address] [address] [address] Eddie Lerner Bilirubin [Mass/Vol] 0.4 mg/dL Normal 0.2-1.0 [facility] Comment on above: Performed By: #### A 1C #### [facility] [address] [address] [address] Eddie Lerner Globulin (S) [Mass/Vol] 4.4 g/dL Normal [facility] Comment on above: Performed By: #### A 1C #### [facility] [address] [place] [address] [address] Eddie Lerner Protein [Mass/Vol] 7.2 g/dL Normal 6.4-8.2 [facility] Comment on above: Performed By: #### A 1C #### [facility] [address] [place] [address] Dr. Eddie Lerner POINT OF CARE GLUCOSEon 07-29 Glucose [Mass/Vol] 107 mg/dL Critically high 74-106 [facility] Comment on above: Performed By: #### P OCGLUC #### [facility] [address] [address] [address] Eddie Lerner Glucose [Mass/Vol] 108 mg/dL Critically high -106 [facility] Comment on above: Performed By: #### P OCGLUC ####[facility] [address] [place] [address]Dr. Eddie Lerner TSHon 08-20-2022 TSH 2.247 uIU/mL Normal 0.358-3.740 [facility] Comment on above: Performed By: #### A 1C #### [facility] [address] [place] [address] [address] Eddie Lerner CBC AUTO DIFFon 08-15-2022 BASO # 0.0 103/ul Normal 0.0-0.1 [facility] Comment on above: Performed By: #### C BC ####[facility] [address] [place] [address]Dr. Eddie Lerner Basophils/100 WBC (Bld) 0.4 % Normal 0.2-2.0 [facility] Comment on above: Performed By: #### C BC ####[facility] [address] [place], [place] [address]DrVaishali Lerner EO # 0.2 103/ul Normal 0.0-0.7 [facility] Comment on above: Performed By: #### C BC ####[facility] [address] [place], [place] [address]DrVaishali Lerner Eosinophils/100 WBC (Bld) 2.0 % Normal 0.9-7.0 [facility] Comment on above: Performed By: #### C BC ####[facility] [address] [place], [place] [address]DrVaishali Lerner Erythrocyte distribution width (RBC) [Ratio] 14.5 % Normal 11.0-15.0 [facility] Comment on above: Performed By: #### C BC ####[facility] [address] [place], [place] [address]DrVaishali Lerner Hematocrit (Bld) [Volume fraction] 40.5 % Critically low 42.0-54.0 [facility] Comment on above: Performed By: #### C BC ####[facility] [address] [place], [place] [address]DrVaishali Lerner Hemoglobin (Bld) [Mass/Vol] 13.1 g/dL Critically low 14.0-18.0 [facility] Comment on above: Performed By: #### C BC ####[facility] [id number] [place], [place] [address]DrVaishali Lerner IG # 0.12 10e3/ul Critically high 0.00-0.03 [facility] Comment on above: Performed By: #### C BC ####[facility] [address] [place], [place] [address]DrVaishali Lerner IG % 1.2 % Critically high 0.0-0.5 [facility] Comment on above: Performed By: #### C BC ####[facility] [address] [place], [place] [address]DrVaishali Lerner LYMPH # 1.4 103/ul Normal 1.2-3.8 [facility] Comment on above: Performed By: #### C BC ####[facility] [address] [place] [address]Dr. Eddie Lerner Lymphocytes/100 WBC (Bld) 13.6 % Critically low 20.5-60.0 [facility] Comment on above: Performed By: #### C BC ####[facility] [address] [place], [place] [address]Dr. Eddie Lerner MANUAL DIFF REQ NO Normal [facility] Comment on above: Performed By: #### C BC ####[facility] [address] [place], [place] [address]Dr. Eddie Lerner MCH (RBC) [Entitic mass] 29.8 pg Normal 25.9-34.0 [facility] Comment on above: Performed By: #### C BC ####[facility] [address] [place], [place] [address]Dr. Eddie Lerner MCHC (RBC) [Mass/Vol] 32.3 g/dL Normal 29.9-35.2 [facility] Comment on above: Performed By: #### C BC ####[facility] [address] [place], [place] [address]Dr. Eddie Lerner MCV (RBC) [Entitic vol] 92.0 fL Normal 80.0-94.0 [facility] Comment on above: Performed By: #### C BC ####[facility] [address] [place], [place] [address]Dr. Eddie Lerner MONO # 0.5 103/ul Normal 0.3-0.8 [facility] Comment on above: Performed By: #### C BC ####[facility] [address] [place], [place] [address]Dr. Eddie Lerner Monocytes/100 WBC (Bld) 4.8 % Normal 1.7-12.0 [facility] Comment on above: Performed By: #### C BC ####[facility] [address] [place], [place] [address]Dr. Eddie Lerner NEUT # 8.1 103/ul Critically high 1.4-6.5 [facility] Comment on above: Performed By: #### C BC ####[facility] [address] [place] [address]Dr. Eddie Lerner Neutrophils/100 WBC (Bld) 78.0 % Critically high 43.0-75.0 [facility] Comment on above: Performed By: #### C BC ####[facility] [address] [place] [address]DrVaishali Lerner Platelet mean volume (Bld) [Entitic vol] 8.6 fL Critically low 9.5-13.5 [facility] Comment on above: Performed By: #### C BC ####[facility] [address] [place] [address]DrVaishali Lerner PLT 240 103/ul Normal 150-450 [facility] Comment on above: Performed By: #### C BC ####[facility] [address] [place] [address]DrVaishali Lerner RBC 4.40 106/ul Critically low 4.70-6.10 [facility] Comment on above: Performed By: #### C BC ####[facility] [address] [place] [address]DrVaishali Lerner WBC 10.3 103/ul Normal 4.0-11.0 [facility] Comment on above: Performed By: #### C BC ####[facility] [address] [place] [address]Dr. Eddie Lerner CRPon 08-15-2022 CRP [Mass/Vol] mg/L Normal <=1.0 [facility] Comment on above: Performed By: #### A 1C #### [facility] [address] [address] [address] Eddie Lerner PROF CHEM 8 (BAS METB)on Anion gap [Moles/Vol] 14.4 mmol/L Normal [facility] Comment on above: Performed By: #### A 1C #### [facility] [address] [place] [address] Dr. Eddie Lerner Calcium [Mass/Vol] 9.2 mg/dL Normal 8.5-10.1 [facility] Comment on above: Performed By: #### A 1C #### [facility] [address] [place] [address] Dr. Eddie Lerner Chloride [Moles/Vol] 101 mmol/L Normal 98-107 [facility] Comment on above: Performed By: #### A 1C #### [facility] [address] [address] [address] Eddie Lerner CO2 [Moles/Vol] 25.2 mmol/L Normal 21.0-32.0 [facility] Comment on above: Performed By: #### A 1C #### [facility] [address] [place] [address] Dr. Eddie Lerner Creatinine [Mass/Vol] 3.07 mg/dL Critically high 0.70-1.30 [facility] Comment on above: Performed By: #### A 1C #### [facility] [address] [place] [address] Dr. Eddie Lerner EGFR-AF MICRONESIAN 25 mL/min/1.73m2 Critically low >=60 [facility] Comment on above: Performed By: #### A 1C #### [facility] [address] [place] [address] Dr. Eddie Lerner EGFR-NON AF MICRONESIAN 21 mL/min/1.73m2 Critically low >=60 [facility] Comment on above: Performed By: #### A 1C #### [facility] [address] [address] [address] Eddie Lerner Glucose [Mass/Vol] 415 mg/dL Critically high 74-[address] [facility] Comment on above: Performed By: #### A 1C #### [facility] [address] [place] [address] Dr. Eddie Lerner Potassium [Moles/Vol] 5.6 mmol/L Critically high 3.5-5.1 [facility] Comment on above: Performed By: #### A 1C #### [facility] [address] [place] [address] Dr. Eddie Lerner Sodium [Moles/Vol] 135 mmol/L Critically low 136-145 [facility] Comment on above: Performed By: #### A 1C #### [facility] [address] [place] [address] Dr. Eddie Lerner Urea nitrogen [Mass/Vol] 34.0 mg/dL Critically high 7.0-18.0 [facility] Comment on above: Performed By: #### A 1C #### [facility] [address] [place] [address] Dr. Eddie Lerner Urea nitrogen/Creatinine [Mass ratio] 11.1 mg/mg Normal [facility] Comment on above: Performed By: #### A 1C #### [facility] [address] [place] [address] Dr. Eddie Lerner SED RATE WESTERGREN 2022 SED RATE 59 mm/hr Critically high <=20 [facility] Comment on above: Performed By: #### S EDR ####[facility] [address] [place], [place] [address]Dr. Eddie Lerner BNPon 06-06-2022 Natriuretic peptide B (Bld) [Mass/Vol] 1342.0 pg/mL Critically high <=900.0 [facility] Comment on above: Performed By: #### B [employer] ####[facility] [address] [place], [place] [address]Dr. Eddie Lerner CBC AUTO DIFFon 06-06-2022 BASO # 0.1 103/ul Normal 0.0-0.1 [facility] Comment on above: Performed By: #### A 1C #### [facility] [address] [place] [address] Dr. Eddie Lerner Basophils/100 WBC (Bld) 0.6 % Normal 0.2-2.0 [facility] Comment on above: Performed By: #### A 1C #### [facility] [address] [place] [address] Dr. Eddie Lerner EO # 0.2 103/ul Normal 0.0-0.7 [facility] Comment on above: Performed By: #### A 1C #### [facility] [address] [place] [address] Dr. Eddie Lerner Eosinophils/100 WBC (Bld) 1.8 % Normal 0.9-7.0 [facility] Comment on above: Performed By: #### A 1C #### [facility] [address] [place] [address] Dr. Eddie Lerner Erythrocyte distribution width (RBC) [Ratio] 15.2 % Critically high 11.0-15.0 [facility] Comment on above: Performed By: #### A 1C #### [facility] [address] [place] [address] Dr. Eddie Lerner Hematocrit (Bld) [Volume fraction] 39.0 % Critically low 42.0-54.0 [facility] Comment on above: Performed By: #### A 1C #### [facility] [address] [place] [address] Dr. Eddie Lerner Hemoglobin (Bld) [Mass/Vol] 12.4 g/dL Critically low 14.0-18.0 [facility] Comment on above: Performed By: #### A 1C #### [facility] [address] [place] [address] Dr. Eddie Lerner IG # 0.21 10e3/ul Critically high 0.00-0.03 [facility] Comment on above: Performed By: #### A 1C #### [facility] [address] [place] [address] Dr. Eddie Lerner IG % 1.6 % Critically high 0.0-0.5 [facility] Comment on above: Performed By: #### A 1C #### [facility] [address] [place] [address] Dr. Eddie Lerner LYMPH # 1.9 103/ul Normal 1.2-3.8 [facility] Comment on above: Performed By: #### A 1C #### [facility] [address] [place] [address] Dr. Eddie Lerner Lymphocytes/100 WBC (Bld) 13.8 % Critically low 20.5-60.0 [facility] Comment on above: Performed By: #### A 1C #### [facility] [address] [place] [address] Dr. Eddie Lerner MANUAL DIFF REQ NO Normal [facility] Comment on above: Performed By: #### A 1C #### [facility] [address] [place] [address] Dr. Eddie Lerner MCH (RBC) [Entitic mass] 27.8 pg Normal 25.9-34.0 [facility] Comment on above: Performed By: #### A 1C #### [facility] [address] [place] [address] Dr. Eddie Lerner MCHC (RBC) [Mass/Vol] 31.8 g/dL Normal 29.9-35.2 [facility] Comment on above: Performed By: #### A 1C #### [facility] [address] [place] [address] Dr. Eddei Lerner MCV (RBC) [Entitic vol] 87.4 fL Normal 80.0-94.0 [facility] Comment on above: Performed By: #### A 1C #### [facility] [address] [place] [address] Dr. Eddie Lerner MONO # 0.8 103/ul Normal 0.3-0.8 [facility] Comment on above: Performed By: #### A 1C #### [facility] [address] [place] [address] Dr. Eddie Lerner Monocytes/100 WBC (Bld) 5.9 % Normal 1.7-12.0 [facility] Comment on above: Performed By: #### A 1C #### [facility] [address] [place] [address] Dr. Eddie Lerner NEUT # 10.3 103/ul Critically high 1.4-6.5 [facility] Comment on above: Performed By: #### A 1C #### [facility] [address] [place] [address] Dr. Eddie Lerner Neutrophils/100 WBC (Bld) 76.3 % Critically high 43.0-75.0 [facility] Comment on above: Performed By: #### A 1C #### [facility] [address] [place] [address] Dr. Eddie Lerner Platelet mean volume (Bld) [Entitic vol] 10.2 fL Normal 9.5-13.5 [facility] Comment on above: Performed By: #### A 1C #### [facility] [address] [place] [address] Dr. Eddie Lerner PLT 288 103/ul Normal 150-450 [facility] Comment on above: Performed By: #### A 1C #### [facility] [address] [place] [address] Dr. Eddie Lerner RBC 4.46 106/ul Critically low 4.70-6.10 [facility] Comment on above: Performed By: #### A 1C #### [facility] [address] [place] [address] Dr. Eddie Lerner WBC 13.5 103/ul Critically high 4.0-11.0 [facility] Comment on above: Performed By: #### A 1C #### [facility] [address] [place] [address] Dr. Eddie Lerner GLYCOHEMOGLOBIN A1Con 2022 ADA RECOMMENDATION SEE BELOW Normal [facility] Comment on above: Result Comment: ADA RECOMMENDED LIMIT 4.0 - 6.0 ADA THERAPEUTIC TARGET < 7.0 ACTION SUGGESTED > 7.0 Performed By: #### A 1C #### [facility] [address] [place] [address] Dr. Eddie Lerner Glucose [Mass/Vol] 283 mg/dL Normal [facility] Comment on above: Performed By: #### A 1C #### [facility] [address] [place] [address] Dr. Eddie Lerner HbA1c (Bld) [Mass fraction] 11.5 % Critically high 4.5-6.2 [facility] Comment on above: Performed By: #### A 1C #### [facility] [address] [place] [address] Dr. Eddie Lerner LIPID PROFILEon 06-06-2022 CHOL-HDL RATIO NORM SEE BELOW Normal [facility] Comment on above: Result Comment: 3.3 - 4.4 LOW RISK 4.4 - 7.1 AVERAGE RISK 7.1 - 11.0 MODERATE RISK >11.0 HIGH RISK Performed By: #### R ENAL, LIPID, LIVER, TSH #### [facility] [address] [place] [address] Dr. Eddie Lerner Cholesterol [Mass/Vol] 152 mg/dL Normal <=200 [facility] Comment on above: Performed By: #### R ENAL, LIPID, LIVER, TSH #### [facility] [address] [place] [address] Dr. Eddie Lerner Cholesterol in HDL [Mass/Vol] 51 mg/dL Normal 40-60 [facility] Comment on above: Performed By: #### R ENAL, LIPID, LIVER, TSH #### [facility] [address] [place] [address] Dr. Eddie Lerner Cholesterol in LDL [Mass/Vol] 61.0 mg/dL Normal [facility] Comment on above: Performed By: #### R ENAL, LIPID, LIVER, TSH #### [facility] [address] [place] [address] Dr. Eddie Lerner Cholesterol.total/C holesterol in HDL [Mass ratio] 3.0 {ratio} Normal [facility] Comment on above: Performed By: #### R ENAL, LIPID, LIVER, TSH #### [facility] [address] [place] [address] Dr. Eddie Lerner HDL NORMAL > or = 60 mg/dl - LO W CARDIOVASCULAR RISK <40 mg/dl - HIGH CARDIOVASCULAR RISK Normal [facility] Comment on above: Performed By: #### R ENAL, LIPID, LIVER, TSH #### [facility] [address] [place] [address] Dr. Eddie Lerner LDL CALC NORMAL SEE BELOW Normal [facility] Comment on above: Result Comment: <100 mg/dl OPTIMAL 100 - 129 mg/dl NEAR OR ABOVE OPTIMAL 130 - 159 mg/dl BORDERLINE HIGH 160 - 189 mg/dl HIGH >190 mg/dl VERY HIGH Performed By: #### R ENAL, LIPID, LIVER, TSH #### [facility] [address] [place] [address] Dr. Eddie Lerner Triglyceride [Mass/Vol] 200 mg/dL Critically high <=150 [facility] Comment on above: Performed By: #### R ENAL, LIPID, LIVER, TSH #### [facility] [address] [address] [address] Eddie Lerner VLDL CALC 40.0 mg/dL Normal [facility] Comment on above: Performed By: #### R ENAL, LIPID, LIVER, TSH #### [facility] [address] [address] [address] Eddie Lerner LIVER PROFILEon 06-06-2022 Albumin [Mass/Vol] 2.6 g/dL Critically low 3.4-5.0 [facility] e [facility] Comment on above: Performed By: #### R ENAL, LIPID, LIVER, TSH #### [facility] [address] [place] [address] Dr. Eddie Lerner Albumin/Globulin [Mass ratio] 0.6 {ratio} Normal [facility] Comment on above: Performed By: #### R ENAL, LIPID, LIVER, TSH #### [facility] [address] [address] [address] Eddie Lerner ALP [Catalytic activity/Vol] 120 U/L Critically high 46-116 [facility] Comment on above: Performed By: #### R ENAL, LIPID, LIVER, TSH #### [facility] [address] [place] [address] Dr. Eddie Lerner ALT [Catalytic activity/Vol] 22 U/L Normal 16-63 [facility] Comment on above: Performed By: #### R ENAL, LIPID, LIVER, TSH #### [facility] [address] [place] [address] Dr. Eddie Lerner AST [Catalytic activity/Vol] 15 U/L Normal 15-37 [facility] Comment on above: Performed By: #### R ENAL, LIPID, LIVER, TSH #### [facility] [address] [place] [address] Dr. Eddie Lerner BILI, CONJUGATED 0.1 mg/dL Normal 0.0-0.2 [facility] Comment on above: Performed By: #### R ENAL, LIPID, LIVER, TSH #### [facility] [address] [address] [address] Eddie Lerner Bilirubin [Mass/Vol] 0.3 mg/dL Normal 0.2-1.0 [facility] Comment on above: Performed By: #### R ENAL, LIPID, LIVER, TSH #### [facility] [address] [address] [address] Eddie Lerner Globulin (S) [Mass/Vol] 4.7 g/dL Normal [facility] Comment on above: Performed By: #### R ENAL, LIPID, LIVER, TSH #### [facility] [address] [address] [address] Eddie Lerner Protein [Mass/Vol] 7.3 g/dL Normal 6.4-8.2 [facility] Comment on above: Performed By: #### R ENAL, LIPID, LIVER, TSH #### [facility] [address] [place] [address] Dr. Eddie Lerner RENAL FUNCTION PANELon 06-06 Calcium [Mass/Vol] 9.0 mg/dL Normal 8.5-10.1 [facility] Comment on above: Performed By: #### R ENAL, LIPID, LIVER, TSH #### [facility] [address] [address] [address] Eddie Lerner Chloride [Moles/Vol] 96 mmol/L Critically low 98-107 [facility] Comment on above: Performed By: #### R ENAL, LIPID, LIVER, TSH #### [facility] [address] [address] [address] Eddie Lerner CO2 [Moles/Vol] 21.8 mmol/L Normal 21.0-32.0 [facility] Comment on above: Performed By: #### R ENAL, LIPID, LIVER, TSH #### [facility] [address] [address] [address] Eddie Lerner Creatinine [Mass/Vol] 2.38 mg/dL Critically high 0.70-1.30 [facility] Comment on above: Performed By: #### R ENAL, LIPID, LIVER, TSH #### [facility] [address] [place] [address] Dr. Eddie Lerner EGFR-AF MICRONESIAN 34 mL/min/1.73m2 Critically low >=60 [facility] Comment on above: Performed By: #### R ENAL, LIPID, LIVER, TSH #### [facility] [address] [address] [address] Eddie Lerner EGFR-NON AF MICRONESIAN 28 mL/min/1.73m2 Critically low >=60 [facility] Comment on above: Performed By: #### R ENAL, LIPID, LIVER, TSH #### [facility] [address] [place] [address] Dr. Eddie Lerner Glucose [Mass/Vol] 523 mg/dL Critically high 74-[address] [facility] Comment on above: Performed By: #### R ENAL, LIPID, LIVER, TSH #### [facility] [address] [place] [address] Dr. Eddie Lerner Phosphate [Mass/Vol] 4.1 mg/dL Normal 2.6-4.7 [facility] Comment on above: Performed By: #### R ENAL, LIPID, LIVER, TSH #### [facility] [address] [address] [address] Eddie Lerner Potassium [Moles/Vol] 4.6 mmol/L Normal 3.5-5.1 [facility] Comment on above: Performed By: #### R ENAL, LIPID, LIVER, TSH #### [facility] [address] [place] [address] Dr. Eddie Lerner Sodium [Moles/Vol] 128 mmol/L Critically low 136-145 [facility] Comment on above: Performed By: #### R ENAL, LIPID, LIVER, TSH #### [facility] [address] [place] [address] Dr. Eddie Lerner Urea nitrogen [Mass/Vol] 28.0 mg/dL Critically high 7.0-18.0 [facility] Comment on above: Performed By: #### R ENAL, LIPID, LIVER, TSH #### [facility] [address] [place] [address] Dr. Eddie Lerner TSHon 06-06-2022 TSH 1.308 uIU/mL Normal 0.358-3.740 [facility] Comment on above: Performed By: #### R ENAL, LIPID, LIVER, TSH #### [facility] [address] [place] [address] Dr. Eddie Lerner UA RANDOMon 06-06-2022 Bilirubin Ql (U) Negative Normal NEGATIVE [facility] Comment on above: Performed By: #### U A #### [facility] [address] [place] [address] Dr. Eddie Lerner Clarity (U) CLEAR Normal CLEAR [facility] Comment on above: Performed By: #### U A #### [facility] [address] [place] [address] Dr. Eddie Lerner Color (U) LT. YELLOW Normal YELLOW [facility] Comment on above: Performed By: #### U A #### [facility] [address] [place] [address] Dr. Eddie Lerner Glucose Ql (U) >1000 Abnormal NEGATIVE [facility] Comment on above: Performed By: #### U A #### [facility] [address] [place] [address] Dr. Eddie Lerner Hemoglobin Ql (U) TRACE-INTACT Abnormal NEGATIVE [facility] Comment on above: Performed By: #### U A #### [facility] [address] [place] [address] Dr. Eddie Lerner Ketones Ql (U) Negative Normal NEGATIVE [facility] Comment on above: Performed By: #### U A #### [facility] [address] [place] [address] Dr. Eddie Lerner LEUKOCYTES Negative Normal NEGATIVE [facility] Comment on above: Performed By: #### U A #### [facility] [address] [place] [address] Dr. Eddie Lerner Nitrite Ql (U) Negative Normal NEGATIVE [facility] Comment on above: Performed By: #### U A #### [facility] [address] [place] [address] Dr. Eddie Lerner pH (U) 6.5 [pH] Normal 5-9 [facility] Comment on above: Performed By: #### U A #### [facility] [address] [place] [address] Dr. Eddie Lerner SPEC GRAVITY 1.010 Normal 1.005-<=1.025 [facility] Comment on above: Performed By: #### U A #### [facility] [address] [address] [address] Eddie Lerner UA PROTEIN 100 mg/dl Abnormal NEGATIVE/ TRACE [facility] Comment on above: Performed By: #### U A #### [facility] [address] [place] [address] Dr. Eddie Lerner Urobilinogen Qn (U) 0.2 {Chaya'U}/dL Normal 0.2 - 1. 0 [facility] Comment on above: Performed By: #### U A #### [facility] [address] [place] [address] Dr. Eddie Lerner VITAMIN D 25 OHon 06-06-2022 VIT D 25-OH 13.9 ng/mL Normal [facility] Comment on above: Performed By: #### V ITAD ####[facility] [address] [address]DrVaishali Lerner VIT D RANGES SEE BELOW Normal [facility] Comment on above: Result Comment: <20 ng/mL Vit D deficient 20 - <30 ng/mL Vit D insufficient 30 - 100 ng/mL Vit D sufficient >100 ng/mL Potential Toxicity Performed By: #### V ITAD ####[facility] [address] [id number] Lerner ACID FAST SMEAR AND CXon Acid Fast Culture Negative Normal [facility] Comment on above: Result Comment: No a wendy fast bacilli isolated after 6 weeks. Performed By: #### A FB ####[facility] [address] [place] [id number] Lerner Acid Fast Smear Negative Normal [facility] Comment on above: Performed By: #### A FB ####[facility] [address] [place] [address]Dr. Eddie Lerner [employer] Specimen Processing Tissue Grinding Normal [facility] Comment on above: Performed By: #### A FB ####[facility] [address] [place] [address]Dr. Eddie Lerner FUNGAL CULTUREon 01-19-2022 Fungus (Mycology) Culture Final report [facility] Comment on above: Performed By: #### R ENAL, LIPID, LIVER, TSH #### [facility] [address] [address] [address] Eddie Lerner Fungus Stain Final report Normal [facility] Comment on above: Performed By: #### R ENJOHN, LIPID, LIVER, TSH #### [facility] [address] [address] [address] Eddie Lerner Result 1 Comment Normal [facility] Comment on above: Result Comment: ANNEMARIE/ Calcofluor preparation: no fungus observed. Performed By: #### R ENAL, LIPID, LIVER, TSH #### [facility] [address] [address] [address] Eddie Lerner Result Comment: No y east or mold isolated after 4 weeks. POINT OF CARE GLUCOSEon 12-28 Glucose [Mass/Vol] 177 mg/dL Critically high 74-106 [facility] Comment on above: Performed By: #### A 1C #### [facility] [address] [address] [address] Eddie Lerner Glucose [Mass/Vol] 200 mg/dL Critically high 74-106 [facility] Comment on above: Performed By: #### P OCGLUC ####[facility] [address] [place] [address]Dr. Eddie Lerner Covid-19 PCR (CVDTBH)on 12-28 SARS-CoV-2 (COVID-19) RNA SUDHA+probe Ql (Unsp spec) Not detected Normal NOT DETECTED [facility] Comment on above: Result Comment: This test is not yet approved or cleared by the [place] FDA. When there are no FDA-approved or cleared tests available, and other criteria are met, FDA can make tests available under an emergency access mechanism called an Emergency Use Authorization (EUA). The EUA for this test is supported by the Supervisor Sheet Manufacturing of Health and Human Service's (HHS's) declaration [...] SARS-CoV-2. Performed By: #### A 1C #### [facility] [address] [place] [address] Dr. Eddie Lerner PROF CHEM 8 (BAS METB)on Anion gap [Moles/Vol] 15.0 mmol/L Normal [facility] Comment on above: Performed By: #### R ENAL, LIPID, LIVER, TSH #### [facility] [address] [place] [address] Dr. Eddie Lerner Calcium [Mass/Vol] 9.3 mg/dL Normal 8.5-10.1 [facility] Comment on above: Performed By: #### R ENAL, LIPID, LIVER, TSH #### [facility] [address] [place] [address] Dr. Eddie Lerner Chloride [Moles/Vol] 105 mmol/L Normal 98-107 [facility] Comment on above: Performed By: #### R ENAL, LIPID, LIVER, TSH #### [facility] [address] [place] [address] Dr. Eddie Lerner CO2 [Moles/Vol] 22.1 mmol/L Normal 21.0-32.0 [facility] Comment on above: Performed By: #### R ENAL, LIPID, LIVER, TSH #### [facility] [address] [place] [address] Dr. Eddie Lerner Creatinine [Mass/Vol] 2.29 mg/dL Critically high 0.70-1.30 [facility] Comment on above: Performed By: #### R ENAL, LIPID, LIVER, TSH #### [facility] [address] [address] [address] Eddie Lerner EGFR-AF MICRONESIAN 35 mL/min/1.73m2 Critically low >=60 [facility] Comment on above: Performed By: #### R ENAL, LIPID, LIVER, TSH #### [facility] [address] [place] [address] Dr. Eddie Lerner EGFR-NON AF MICRONESIAN 29 mL/min/1.73m2 Critically low >=60 [facility] Comment on above: Performed By: #### R ENAL, LIPID, LIVER, TSH #### [facility] [address] [place] [address] Dr. Eddie Lerner Glucose [Mass/Vol] 115 mg/dL Critically high 74-[address] [facility] Comment on above: Performed By: #### R ENAL, LIPID, LIVER, TSH #### [facility] [address] [place] [address] Dr. Eddie Lerner Potassium [Moles/Vol] 5.1 mmol/L Normal 3.5-5.1 [facility] Comment on above: Performed By: #### R ENAL, LIPID, LIVER, TSH #### [facility] [address] [place] [address] Dr. Eddie Lerner Sodium [Moles/Vol] 137 mmol/L Normal 136-145 [facility] Comment on above: Performed By: #### R ENAL, LIPID, LIVER, TSH #### [facility] [address] [place] [address] Dr. Eddie Lerner Urea nitrogen [Mass/Vol] 26.0 mg/dL Critically high 7.0-18.0 [facility] Comment on above: Performed By: #### R ENAL, LIPID, LIVER, TSH #### [facility] [address] [place] [address] Dr. Eddie Lerner Urea nitrogen/Creatinine [Mass ratio] 11.4 mg/mg Normal [facility] Comment on above: Performed By: #### R ENAL, LIPID, LIVER, TSH #### [facility] [address] [address] [address] Eddie Lerner TISSUE CULTUREon 01-08-2022 Anaerobic Culture, Extended Incubation Final report Normal [facility] Comment on above: Performed By: #### C XTISSU ####[facility] [address] [place] [address]Dr. Eddie Lerner Result 1 Comment Normal [facility] Comment on above: Result Comment: Diph theroids, not Corynebacterium jeikeium Light growth Susceptibility not normally performed on this organism. Performed By: #### C XTISSU ####[facility] [address] [place] [address]Dr. Eddie Lerner Result Comment: No a natanyabes recovered. Tissue Culture Final report Abnormal [facility] Comment on above: Performed By: #### C XTISSU ####[facility] [address] [place] [address]Dr. Eddie Lerner POINT OF CARE GLUCOSEon 11-28 Glucose [Mass/Vol] 89 mg/dL Normal 74-106 [facility] Comment on above: Performed By: #### R ENAL, LIPID, LIVER, TSH #### [facility] [address] [address] [address] Eddie Lerenr Glucose [Mass/Vol] 85 mg/dL Normal 74-106 [facility] Comment on above: Performed By: #### P OCGLUC ####[facility] [address] [place] [address]Dr. Eddie Lerner GRAM STAINon 12-21-2021 COMMENTS NO ORGANISMS OBSERVED Normal [facility] Comment on above: Performed By: #### R ENAL, LIPID, LIVER, TSH #### [facility] [address] [address] [address] Eddie Lerner DIPHTHEROIDS Normal [facility] Comment on above: Performed By: #### R ENAL, LIPID, LIVER, TSH #### [facility] [address] [address] [address] Eddie Lerner EPITHELIALS Normal [facility] Comment on above: Performed By: #### R ENAL, LIPID, LIVER, TSH #### [facility] [address] [address] [address] Eddie Lerner FUNGAL ELEMENTS Normal [facility] Comment on above: Performed By: #### R ENAL, LIPID, LIVER, TSH #### [facility] [address] [address] [address] Eddie Lerner GRAM NEG BACILLI Normal [facility] Comment on above: Performed By: #### R ENAL, LIPID, LIVER, TSH #### [facility] [address] [address] [address] Eddie PRINGLE NEG DIPPLOCOCCI Normal [facility] Comment on above: Performed By: #### R ENAL, LIPID, LIVER, TSH #### [facility] [address] [address] [address] Eddie Lerner GRAM POS BACILLI Normal [facility] Comment on above: Performed By: #### R ENAL, LIPID, LIVER, TSH #### [facility] [address] [address] [address] Eddie Lerner GRAM POSITIVE COCCI Normal [facility] Comment on above: Performed By: #### R ENAL, LIPID, LIVER, TSH #### [facility] [address] [address] [address] Eddie Lerner GRAM STAIN SOURCE Lt 1st Metatarsal Bone Normal [facility] Comment on above: Performed By: #### R ENAL, LIPID, LIVER, TSH #### [facility] [address] [address] [address] Eddie Lerner GS_DIPTH Normal [facility] Comment on above: Performed By: #### R ENAL, LIPID, LIVER, TSH #### [facility] [address] [address] [address] Eddie Lerner WBC RARE Normal [facility] Comment on above: Performed By: #### R ENAL, LIPID, LIVER, TSH #### [facility] [address] [address] [address] Eddie Lerner POINT OF CARE GLUCOSEon 08-2 Glucose [Mass/Vol] 148 mg/dL Critically high 74-[address] [facility] Comment on above: Performed By: #### A 1C #### [facility] [address] [place], [place] [address] Dr. Eddie Lerner Glucose [Mass/Vol] 100 mg/dL Normal 74-106 [facility] Comment on above: Performed By: #### P OCGLUC ####[facility] [address] [place], [place] [address]Co. Eddie Lerner Glucose [Mass/Vol] 85 mg/dL Normal 74-106 [facility] Comment on above: Performed By: #### P OCGLUC ####[facility] [address] [place], [place] [address]My. Eddie Lerner Glucose [Mass/Vol] 83 mg/dL Normal 74-106 [facility] Comment on above: Performed By: #### R ENAL, LIPID, LIVER, TSH #### [facility] [address] [place], [place] [address] Dr. Eddie Lerner Covid-19 PCR (CVDTB)on 11-28 SARS-CoV-2 (COVID-19) RNA SUDHA+probe Ql (Unsp spec) Not detected Normal NOT DETECTED [facility] Comment on above: Result Comment: This test is not yet approved or cleared by the [place] FDA. When there are no FDA-approved or cleared tests available, and other criteria are met, FDA can make tests available under an emergency access mechanism called an Emergency Use Authorization (EUA). The EUA for this test is supported by the Supervisor Sheet Manufacturing of Health and Human Service's (HHS's) declaration [...] with SARS-CoV-2. Performed By: #### C VDTBH ####[facility] [address] [place] [address]Dr. Eddie Lerner PROF CHEM 8 (BAS METB)on Anion gap [Moles/Vol] 11.5 mmol/L Normal [facility] Comment on above: Performed By: #### R ENAL, LIPID, LIVER, TSH #### [facility] [address] [address] [address] Eddie Lerner Calcium [Mass/Vol] 9.0 mg/dL Normal 8.5-10.1 [facility] Comment on above: Performed By: #### R ENAL, LIPID, LIVER, TSH #### [facility] [address] [address] [address] Eddie Lerner Chloride [Moles/Vol] 102 mmol/L Normal 98-107 [facility] Comment on above: Performed By: #### R ENAL, LIPID, LIVER, TSH #### [facility] [address] [place] [address] Dr. Eddie Lerner CO2 [Moles/Vol] 24.8 mmol/L Normal 21.0-32.0 [facility] Comment on above: Performed By: #### R ENAL, LIPID, LIVER, TSH #### [facility] [address] [place] [address] Dr. Eddie Lerner Creatinine [Mass/Vol] 2.19 mg/dL Critically high 0.70-1.30 [facility] Comment on above: Performed By: #### R ENAL, LIPID, LIVER, TSH #### [facility] [address] [address] [address] Eddie Lerner EGFR-AF MICRONESIAN 37 mL/min/1.73m2 Critically low >=60 [facility] Comment on above: Performed By: #### R ENAL, LIPID, LIVER, TSH #### [facility] [address] [place] [address] Dr. Eddie Lerner EGFR-NON AF MICRONESIAN 31 mL/min/1.73m2 Critically low >=60 [facility] Comment on above: Performed By: #### R ENAL, LIPID, LIVER, TSH #### [facility] [address] [address] [address] Eddie Lerner Glucose [Mass/Vol] 330 mg/dL Critically high 74-[address] [facility] Comment on above: Performed By: #### R ENAL, LIPID, LIVER, TSH #### [facility] [address] [address] [address] Eddie Lerner Potassium [Moles/Vol] 5.3 mmol/L Critically high 3.5-5.1 [facility] Comment on above: Performed By: #### R ENAL, LIPID, LIVER, TSH #### [facility] [address] [address] [address] Eddie Lerner Sodium [Moles/Vol] 133 mmol/L Critically low 136-145 [facility] Comment on above: Performed By: #### R ENAL, LIPID, LIVER, TSH #### [facility] [address] [place] [address] Dr. Eddie Lerner Urea nitrogen [Mass/Vol] 25.0 mg/dL Critically high 7.0-18.0 [facility] Comment on above: Performed By: #### R ENAL, LIPID, LIVER, TSH #### [facility] [address] [address] [address] Eddie Lerner Urea nitrogen/Creatinine [Mass ratio] 11.4 mg/mg Normal [facility] Comment on above: Performed By: #### R ENAL, LIPID, LIVER, TSH #### [facility] [address] [address] [address] Eddie Lerner Comprehensive Metabolic Pane babatunde 08-01-2021 Albumin [Mass/Vol] 2.8 g/dL Low 3.2-5.5 [facility] Comment on above: Order Comment: REDRA W FOR SHORT DRAW AND HEMOLYSIS Performed By: #### P P #### [facility] [address] Albumin/Globulin [Mass ratio] 0.7 {ratio} Normal [facility] Comment on above: Order Comment: REDRA W FOR SHORT DRAW AND HEMOLYSIS Performed By: #### P P #### [facility] [address] [place] [address] [place] ALP [Catalytic activity/Vol] 87 U/L Normal 32-92 [facility] Comment on above: Order Comment: REDRA W FOR SHORT DRAW AND HEMOLYSIS Performed By: #### P P #### [address] ALT [Catalytic activity/Vol] 18 U/L Normal 10-60 [facility] Comment on above: Order Comment: REDRA W FOR SHORT DRAW AND HEMOLYSIS Performed By: #### P P #### [address] AST [Catalytic activity/Vol] 20 U/L Normal 10-42 [facility] Comment on above: Order Comment: REDRA W FOR SHORT DRAW AND HEMOLYSIS Performed By: #### P P #### [address] Bilirubin [Mass/Vol] 0.6 mg/dL Normal 0.3-1.2 [facility] Comment on above: Order Comment: REDRA W FOR SHORT DRAW AND HEMOLYSIS Performed By: #### P P #### [address] Calcium [Mass/Vol] 8.9 mg/dL Normal 8.2-10.2 [facility] Comment on above: Order Comment: REDRA W FOR SHORT DRAW AND HEMOLYSIS Performed By: #### P P #### [place] [address] [place] Chloride [Moles/Vol] 103 mmol/L Normal 95-114 [facility] Comment on above: Order Comment: REDRA W FOR SHORT DRAW AND HEMOLYSIS Performed By: #### P P #### [place] [address] [place] CO2 [Moles/Vol] 24.7 mmol/L Normal 22.0-30.0 [facility] Comment on above: Order Comment: REDRA W FOR SHORT DRAW AND HEMOLYSIS Performed By: #### P P #### [address] Creatinine [Mass/Vol] 2.34 mg/dL High 0.64-1.27 [facility] Comment on above: Order Comment: REDRA W FOR SHORT DRAW AND HEMOLYSIS Performed By: #### P P #### [facility] [address] [place] [address] [place] Estimated GFR ( Camilla 34 Normal [facility] Comment on above: Order Comment: REDRA W FOR SHORT DRAW AND HEMOLYSIS Result Comment: GFR estimated reference range: According to KDOQI guidelines, <60 ml/min/1.73m2 is sufficient to diagnose a patient with chronic kidney disease. Performed By: #### P P #### [facility] [address] Estimated GFR (Non- Am 28 [facility] Comment on above: Order Comment: REDRA W FOR SHORT DRAW AND HEMOLYSIS Performed By: #### P P #### [facility] [address] Globulin (S) [Mass/Vol] 3.9 g/dL Normal [facility] Comment on above: Order Comment: REDRA W FOR SHORT DRAW AND HEMOLYSIS Performed By: #### P P #### [address] Glucose [Mass/Vol] 171 mg/dL High 70-100 [facility] Comment on above: Order Comment: REDRA W FOR SHORT DRAW AND HEMOLYSIS Result Comment: [place] om Glucose Reference Range is dependent on time and content of last meal. Glucose of more than 200 mg/dL in a nonstressed, ambulatory subject supports the diagnosis of Diabetes Mellitus. ADA recommended reference range Performed By: #### P P #### [facility] [address] [place] [id number] [facility] Potassium [Moles/Vol] 4.0 mmol/L Normal 3.5-5.1 [facility] Comment on above: Order Comment: REDRA W FOR SHORT DRAW AND HEMOLYSIS Performed By: #### P P #### [place] [id number] [facility] Protein [Mass/Vol] 6.7 g/dL Normal 6.1-7.9 [facility] Comment on above: Order Comment: REDRA W FOR SHORT DRAW AND HEMOLYSIS Performed By: #### P P #### [address] Sodium [Moles/Vol] 138 mmol/L Normal 136-146 [facility] Comment on above: Order Comment: REDRA W FOR SHORT DRAW AND HEMOLYSIS Performed By: #### P P #### [address] Urea nitrogen [Mass/Vol] 18 mg/dL Normal 9-23 [facility] Comment on above: Order Comment: REDRA W FOR SHORT DRAW AND HEMOLYSIS Performed By: #### P P #### [address] Ferritinon 08-01-2021 Ferritin [Mass/Vol] 151.9 ng/mL Normal 23.9-336.2 [facility] Comment on above: Order Comment: Reaso n for Exam CKD (chronic kidney disease) stage 4, GFR 15-29 ml/min;Diabe Performed By: #### C MP, CBC, MG, TROP, BNP #### [address] Hemogram CBC Without Diffon 08-01-2021 Erythrocyte distribution width (RBC) [Ratio] 15.9 % High 12.0-14.8 [facility] Comment on above: Order Comment: REDRA W FOR SHORT DRAW AND HEMOLYSIS Performed By: #### P P #### [address] Hematocrit (Bld) [Volume fraction] 38.9 % Normal 38.8-50.0 [facility] Comment on above: Order Comment: REDRA W FOR SHORT DRAW AND HEMOLYSIS Performed By: #### P P #### [address] Hemoglobin (Bld) [Mass/Vol] 12.9 g/dL Low 13.0-17.0 [facility] Comment on above: Order Comment: REDRA W FOR SHORT DRAW AND HEMOLYSIS Performed By: #### P P #### [address] MCH (RBC) [Entitic mass] 28.4 pg Normal 27.5-35.2 [facility] Comment on above: Order Comment: REDRA W FOR SHORT DRAW AND HEMOLYSIS Performed By: #### P P #### [address] MCV (RBC) [Entitic vol] 85.7 fL Normal 83.5-101 [facility] Comment on above: Order Comment: REDRA W FOR SHORT DRAW AND HEMOLYSIS Performed By: #### P P #### [address] Mean Corpuscular HGB Conc 33.1 g/dL Normal 32.5-35.6 [facility] Comment on above: Order Comment: REDRA W FOR SHORT DRAW AND HEMOLYSIS Performed By: #### P P #### [address] Platelet mean volume (Bld) [Entitic vol] 7.8 fL Normal 6.6-10.1 [facility] Comment on above: Order Comment: REDRA W FOR SHORT DRAW AND HEMOLYSIS Result Comment: PERF ORMED BY: [place] [address] PATHOLOGIST AUTO JOB ESTIMATOR JORDAN RODRIGUEZ M.D. Performed By: #### P P #### [address] Platelets (Bld) [#/Vol] 352 10*3/uL Normal 150-450 [facility] Comment on above: Order Comment: REDRA W FOR SHORT DRAW AND HEMOLYSIS Performed By: #### P P #### [address] RBC (Bld) [#/Vol] 4.54 10*6/uL Normal 3.90-5.60 [facility] Comment on above: Order Comment: REDRA W FOR SHORT DRAW AND HEMOLYSIS Performed By: #### P P #### [address] WBC (Bld) [#/Vol] 9.1 10*3/uL Normal 4.1-10.5 [facility] Comment on above: Order Comment: REDRA W FOR SHORT DRAW AND HEMOLYSIS Performed By: #### P P #### [address] Iron and TIBC Profileon 04- % Iron Saturation 24.0 % Normal 20-50 [facility] Comment on above: Order Comment: REDRA W FOR SHORT DRAW AND HEMOLYSIS Performed By: #### P P #### [address] Iron [Mass/Vol] 47 ug/dL Normal 40-160 [facility] Comment on above: Order Comment: REDRA W FOR SHORT DRAW AND HEMOLYSIS Performed By: #### P P #### [address] Total Iron Binding Capacity 192 ug/dL Low 255-450 [facility] Comment on above: Order Comment: REDRA W FOR SHORT DRAW AND HEMOLYSIS Performed By: #### P P #### [address] Transferrin [Mass/Vol] 137 mg/dL Low 180-380 [facility] Comment on above: Order Comment: REDRA W FOR SHORT DRAW AND HEMOLYSIS Performed By: #### P P #### [address] Magnesiumon 08-01-2021 Magnesium [Mass/Vol] 2.2 mg/dL Normal 1.6-2.6 [facility] Comment on above: Order Comment: REDRA W FOR SHORT DRAW AND HEMOLYSIS Performed By: #### P P #### [address] Parathyroid Hormone Intacton 08-01-2021 Parathyroid Hormone Intact 31.2 pg/mL Normal 12-88 [facility] Comment on above: Order Comment: Reaso n for Exam CKD (chronic kidney disease) stage 4, GFR 15-29 ml/min;Diabe Result Comment: PERF ORMED BY: [place] [address] PATHOLOGIST AUTO JOB ESTIMATOR JORDAN RODRIGUEZ M.D. Performed By: #### C MP, CBC, MG, TROP, BNP #### [facility] [address] [place] [id number] [facility] Uric Acidon 08-01-2021 Urate [Mass/Vol] 8.4 mg/dL High 2.6-7.2 [facility] Comment on above: Order Comment: REDRA W FOR SHORT DRAW AND HEMOLYSIS Performed By: #### P P #### [facility] [address] [place] [address] Vitamin D 25 Hydroxy Totalon 08-01-2021 Vitamin D 25 Hydroxy Total 28.2 ng/mL Low 30-100 [facility] Comment on above: Order Comment: Reaso [...] C MP, CBC, MG, TROP, BNP #### [address] Complete Pulmonary Functiono n 09-28-2020 Complete Pulmonary Function [facility] [place] [address] [place] [address] Pulmonary Function Signed Patient: Rashard Lyman MR#: [id number] : 1960 Acct:[id number] Age/Sex: 60 / M ADM Date: 09/28/20 Loc: RT Room: Type: [facility] Attending Dr: USMAN Stover APRN Ordering [...] to 2.21 L or 50% predicted. The TXL33-72% is reduced at 1.92 L/sec or 54% predicted. After administration of bronchodilators, there is an insignificant 5% improvement in the forced vital capacity and 5% improvement in the FEV1. The XOT58-63% improves insignificantly by 10%. LUNG VOLUMES: Lung [...] adequate pulmonary function studies reveal evidence of hphz-ic-xcqbmmxx restriction without clear evidence of obstruction nor [...] MD 09/28/20 1305 Signed By: 09/28/20 1505 [facility] echo limited 1 [facility] echo [facility] [place] [address] Echocardiogram Signed Patient: Rashard Lyman MR#: [id number] : 1960 Acct:[id number] Age/Sex: 60 / M ADM Date: 09/06/20 Loc: Room: Type: [facility] Attending Dr: Gautam Bazan MD Ordering Provider: Gautam Bazan MD Date of Service: 09/06/20 [facility] echo limited: re assess pericardial effusions Copies to: Nancy Jackson MD, [facility] Gautam Bazan MD Weight: 354 lb Performed By: Mariana uKo RDCS BSA: 2.8 m2 HR: 100 Reason [...] 09/06/206 Dictated By: Nancy Jackson MD, [facility] 09/06/20 1232 Signed By: 09/06/20 1626 Normal [facility] Albumin [Mass/volume] in Ser um or Plasmaon 08-25-2020 Albumin [Mass/Vol] 2.0 g/dL 3.2-5.5 [facility] Basophils Auto (Bld) [#/Vol] on 08-25-2020 Basophils (Bld) [#/Vol] 0.0 10*3/uL 0.0-0.2 [facility] Basophils/100 WBC Auto (Bld) on 08-25-2020 Basophils/100 WBC (Bld) 0.1 % [facility] Blood anisocytosis detection on 08-25-2020 Anisocytosis Ql (Bld) Slight [facility] Blood hemoglobin measurement (mass/volume)on 08-25-2020 Hemoglobin (Bld) [Mass/Vol] 10.1 g/dL 13.0-17.0 [facility] Blood leukocytes automated c ount (number/volume)on 08-25-2020 WBC (Bld) [#/Vol] 12.6 10*3/uL 4.5-11.0 [facility] Blood polychromasia detectio n by light microscopyon 08-25-2020 Polychromasia LM Ql (Bld) Slight [facility] Creatinine and Glomerular fi ltration rate.predicted panel (S/P/Bld)on 08-25-2020 Creatinine [Mass/Vol] 4.06 mg/dL 0.64-1.27 [facility] ECG 12 lead ECGon 08-25-2020 ECG 12 lead ECG [facility] [place] [address] Electrocardiograph Report Signed Patient: Rashard Lyman MR#: [id number] : 1960 Acct:[id number] Age/Sex: 60 / M ADM Date: 08/18/20 Loc: Room: [address] [place] [address] Type: ADM IN Attending Dr: Gordon Ewing [...] 08/25/20 0719 Signed By: 08/25/20 0951 [facility] Eosinophils Auto (Bld) [#/Vo l]on 08-25-2020 Eosinophils (Bld) [#/Vol] 0.0 10*3/uL 0.0-0.45 [facility] Eosinophils/100 WBC Auto (Bl d)on 08-25-2020 Eosinophils/100 WBC (Bld) 0.1 % [facility] Erythrocyte distribution wid th Auto (RBC) [Ratio]on 08-25-2020 Erythrocyte distribution width (RBC) [Ratio] 16.6 % 12.0-14.8 [facility] Estimated glomerular filtrat ion rate (GFR) non- Americanon 08-25-2020 GFR/1.73 sq M.predicted among non-blacks MDRD (S/P/Bld) [Vol rate/Area] 15 mL/Min [facility] Glucose Glucometer (BldC) [M ass/Vol]on 08-25-2020 Glucose [Mass/Vol] 122 mg/dL [facility] Comment on above: Random Glucose Refer ence Range is dependent on time and content of last meal. Glucose of more than 200 mg/dL in a nonstressed, ambulatory subject supports the diagnosis of Diabetes Mellitus. Glucose Poct Glucometerson 0 08-25-2020 Commemt1 Glu2: Cleaned Meter [facility] Comment on above: Result Comment: PERF ORMED BY: [place] [address] PATHOLOGIST AUTO JOB ESTIMATOR JORDAN RODRIGUEZ M.D. Performed By: #### P P #### [address] Glucose [Mass/Vol] 122 mg/dL Normal [facility] Comment on above: Result Comment: [place] [facility] Glucose Reference Range is dependent on time and content of last meal. Glucose of more than 200 mg/dL in a nonstressed, ambulatory subject supports the diagnosis of Diabetes Mellitus. Performed By: #### P P #### [address] Commemt1 Glu2: Cleaned Meter [facility] Comment on above: Result Comment: PERF ORMED BY: [facility] [address] [place] [address] PATHOLOGIST AUTO JOB ESTIMATOR JORDAN RODRIGUEZ M.D. Performed By: #### V BG #### Point of Care testing , Glucose [Mass/Vol] 104 mg/dL Normal [facility] Comment on above: Result Comment: [place] [facility] Glucose Reference Range is dependent on time and content of last meal. Glucose of more than 200 mg/dL in a nonstressed, ambulatory subject supports the diagnosis of Diabetes Mellitus. Performed By: #### V BG #### Point of Care testing , Glucose [Mass/Vol] 115 mg/dL Normal [facility] Comment on above: Result Comment: [facility] Glucose Reference Range is dependent on time and content of last meal. Glucose of more than 200 mg/dL in a nonstressed, ambulatory subject supports the diagnosis of Diabetes Mellitus. PERFORMED BY: [facility] [place] [address] PATHOLOGIST AUTO JOB ESTIMATOR JORDAN RODRIGUEZ M.D. Performed By: #### V BG #### Point of Care testing , Hematocrit Auto (Bld) [Volum e fraction]on 08-25-2020 Hematocrit (Bld) [Volume fraction] 31.7 % 38.8-50.0 [facility] Laboratory - Hematology and Cell countson 08-25-2020 Nucleated RBC/100 WBC (Bld) [Ratio] 0.2 % 0-0.5 [facility] Lymphocytes Auto (Bld) [#/Vo l]on 08-25-2020 Lymphocytes (Bld) [#/Vol] 1.1 10*3/uL 1.00-4.8 [facility] Lymphocytes/100 WBC Auto (Bl d)on 08-25-2020 Lymphocytes/100 WBC (Bld) 8.9 % [facility] MCH Auto (RBC) [Entitic mass ]on 08-25-2020 MCH (RBC) [Entitic mass] 26.2 pg 27.5-35.2 [facility] MCHC Auto (RBC) [Mass/Vol]on 08-25-2020 MCHC (RBC) [Mass/Vol] 31.9 g/dL 32.5-35.6 [facility] MCV Auto (RBC) [Entitic vol] on 08-25-2020 MCV (RBC) [Entitic vol] 82.3 fL 83.5-101 [facility] Monocytes Auto (Bld) [#/Vol] on 08-25-2020 Monocytes (Bld) [#/Vol] 1.2 10*3/uL 0.0-0.8 [facility] Monocytes/100 WBC Auto (Bld) on 08-25-2020 Monocytes/100 WBC (Bld) 9.6 % [facility] Neutrophils Auto (Bld) [#/Vo l]on 08-25-2020 Neutrophils (Bld) [#/Vol] 10.2 10*3/uL 1.8-7.7 [facility] Neutrophils/100 WBC Auto (Bl d)on 08-25-2020 Neutrophils/100 WBC (Bld) 81.3 % [facility] No Panel Informationon 08-25 Bedside Glucose Comment Glu2: cleaned meter [facility] Estimated GFR () 18 mL/Min [facility] Comment on above: GFR estimated refere nce range: According to KDOQI guidelines, <60 ml/min/1.73m2 is sufficient to diagnose a patient with chronic kidney disease. Pharmacy Creatinine Clearance (Chem 31.84 [facility] Platelet Estimate Normal Normal [facility] Platelet Morphology Comment Normal Normal [facility] Phosphate [Mass/volume] in S miki or Plasmaon 08-25-2020 Phosphate [Mass/Vol] 5.3 mg/dL 2.5-4.6 [facility] Platelet mean volume Auto (B ld) [Entitic vol]on 08-25-2020 Platelet mean volume (Bld) [Entitic vol] 7.1 fL 6.6-10.1 [facility] Platelets Auto (Bld) [#/Vol] on 08-25-2020 Platelets (Bld) [#/Vol] 388 10*3/uL 150-450 [facility] RBC Auto (Bld) [#/Vol]on RBC (Bld) [#/Vol] 3.85 10*6/uL 3.90-5.60 [facility] RBC morphologyon 08-25-2020 RBC morphology finding Nom (Bld) N/A [facility] Renal Function Panelon 08-25 Albumin [Mass/Vol] 2.0 g/dL Low 3.2-5.5 [facility] Comment on above: Performed By: #### V BG #### Point of Care testing , Calcium [Mass/Vol] 8.7 mg/dL Normal 8.2-10.2 [facility] Comment on above: Performed By: #### V BG #### Point of Care testing , Chloride [Moles/Vol] 99 mmol/L Normal 95-114 [facility] Comment on above: Performed By: #### V BG #### Point of Care testing , CO2 [Moles/Vol] 26.2 mmol/L Normal 22.0-30.0 [facility] Comment on above: Performed By: #### V BG #### Point of Care testing , Creatinine [Mass/Vol] 4.06 mg/dL High 0.64-1.27 [facility] Comment on above: Performed By: #### V BG #### Point of Care testing , Creatinine Clr Calc Pharmacy 31.84 [facility] Comment on above: Result Comment: PERF ORMED BY: [facility] [address] [address] PATHOLOGIST AUTO JOB ESTIMATOR JORDAN RODRIGUEZ M.D. Performed By: #### V BG #### Point of Care testing , Estimated GFR ( Camilla 18 [facility] Comment on above: Result Comment: GFR estimated reference range: According to KDOQI guidelines, <60 ml/min/1.73m2 is sufficient to diagnose a patient with chronic kidney disease. Performed By: #### V BG #### Point of Care testing , Estimated GFR (Non- Am 15 [facility] Comment on above: Performed By: #### V BG #### Point of Care testing , Glucose [Mass/Vol] 113 mg/dL High 70-100 [facility] Comment on above: Result Comment: [place] [facility] Glucose Reference Range is dependent on time and content of last meal. Glucose of more than 200 mg/dL in a nonstressed, ambulatory subject supports the diagnosis of Diabetes Mellitus. ADA recommended reference range Performed By: #### V BG #### Point of Care testing , Phosphate [Mass/Vol] 5.3 mg/dL High 2.5-4.6 [facility] Comment on above: Performed By: #### V BG #### Point of Care testing , Potassium [Moles/Vol] 4.6 mmol/L Normal 3.5-5.1 [facility] Comment on above: Performed By: #### V BG #### Point of Care testing , Sodium [Moles/Vol] 135 mmol/L Low 136-146 [facility] Comment on above: Performed By: #### V BG #### Point of Care testing , Urea nitrogen [Mass/Vol] 75 mg/dL High 9-23 [facility] Comment on above: Performed By: #### V BG #### Point of Care testing , Scan and CBCon 08-25-2020 Anisocytosis Ql (Bld) Slight [facility] Comment on above: Performed By: #### V BG #### Point of Care testing , Basophils (Bld) [#/Vol] 0.0 10*3/uL Normal 0.0-0.2 [facility] Comment on above: Performed By: #### V BG #### Point of Care testing , Basophils/100 WBC (Bld) 0.1 % Normal . [facility] Comment on above: Performed By: #### V BG #### Point of Care testing , Eosinophils (Bld) [#/Vol] 0.0 10*3/uL Normal 0.0-0.45 [facility] Comment on above: Performed By: #### V BG #### Point of Care testing , Eosinophils/100 WBC (Bld) 0.1 % Normal . [facility] Comment on above: Performed By: #### V BG #### Point of Care testing , Erythrocyte distribution width (RBC) [Ratio] 16.6 % High 12.0-14.8 [facility] Comment on above: Performed By: #### V BG #### Point of Care testing , Hematocrit (Bld) [Volume fraction] 31.7 % Low 38.8-50.0 [facility] Comment on above: Performed By: #### V BG #### Point of Care testing , Hemoglobin (Bld) [Mass/Vol] 10.1 g/dL Low 13.0-17.0 [facility] Comment on above: Performed By: #### V BG #### Point of Care testing , Lymphocytes (Bld) [#/Vol] 1.1 10*3/uL Normal 1.00-4.8 [facility] Comment on above: Performed By: #### V BG #### Point of Care testing , Lymphocytes/100 WBC (Bld) 8.9 % Normal . [facility] Comment on above: Performed By: #### V BG #### Point of Care testing , MCH (RBC) [Entitic mass] 26.2 pg Low 27.5-35.2 [facility] Comment on above: Performed By: #### V BG #### Point of Care testing , MCV (RBC) [Entitic vol] 82.3 fL Low 83.5-101 [facility] Comment on above: Performed By: #### V BG #### Point of Care testing , Mean Corpuscular HGB Conc 31.9 g/dL Low 32.5-35.6 [facility] Comment on above: Performed By: #### V BG #### Point of Care testing , Monocytes (Bld) [#/Vol] 1.2 10*3/uL High 0.0-0.8 [facility] Comment on above: Performed By: #### V BG #### Point of Care testing , Monocytes/100 WBC (Bld) 9.6 % Normal . [facility] Comment on above: Performed By: #### V BG #### Point of Care testing , Neutrophils (Bld) [#/Vol] 10.2 10*3/uL High 1.8-7.7 [facility] Comment on above: Performed By: #### V BG #### Point of Care testing , Neutrophils/100 WBC (Bld) 81.3 % Normal . [facility] Comment on above: Performed By: #### V BG #### Point of Care testing , Nucleated RBC/100 WBC (Bld) [Ratio] 0.2 % Normal 0-0.5 [facility] Comment on above: Performed By: #### V BG #### Point of Care testing , Platelet Estimate Normal Normal Normal [facility] Comment on above: Performed By: #### V BG #### Point of Care testing , Platelet mean volume (Bld) [Entitic vol] 7.1 fL Normal 6.6-10.1 [facility] Comment on above: Performed By: #### V BG #### Point of Care testing , Platelet Morphology Normal Normal Normal [facility] Comment on above: Result Comment: PERF ORMED BY: [facility] [place] [address] PATHOLOGIST AUTO JOB ESTIMATOR JORDAN RODRIGUEZ M.D. Performed By: #### V BG #### Point of Care testing , Platelets (Bld) [#/Vol] 388 10*3/uL Normal 150-450 [facility] Comment on above: Performed By: #### V BG #### Point of Care testing , Polychromasia Slight Normal [facility] Comment on above: Performed By: #### V BG #### Point of Care testing , RBC (Bld) [#/Vol] 3.85 10*6/uL Low 3.90-5.60 [facility] Comment on above: Performed By: #### V BG #### Point of Care testing , WBC (Bld) [#/Vol] 12.6 10*3/uL High 4.5-11.0 [facility] Comment on above: Performed By: #### V BG #### Point of Care testing , Serum or plasma calcium joel urement (mass/volume)on 08-25-2020 Calcium [Mass/Vol] 8.7 mg/dL 8.2-10.2 [facility] Serum or plasma chloride faraz surement (moles/volume)on 08-25-2020 Chloride [Moles/Vol] 99 mmol/L 95-114 [facility] Serum or plasma glucose joel urement (mass/volume)on 08-25-2020 Glucose [Mass/Vol] 113 mg/dL 70-100 [facility] Comment on above: ADA recommended refe rence rangeRandom Glucose Reference Range is dependent on time and content of last meal. Glucose of more than 200 mg/dL in a nonstressed, ambulatory subject supports the diagnosis of Diabetes Mellitus. Serum or plasma potassium me asurement (moles/volume)on 08-25-2020 Potassium [Moles/Vol] 4.6 mmol/L 3.5-5.1 [facility] Serum or plasma sodium measu rement (moles/volume)on 08-25-2020 Sodium [Moles/Vol] 135 mmol/L 136-146 [facility] Serum or plasma total carbon dioxide measurement (moles/volume)on 08-25-2020 CO2 [Moles/Vol] 26.2 mmol/L 22.0-30.0 [facility] Serum or plasma urea nitroge n measurement (mass/volume)on 08-25-2020 Urea nitrogen [Mass/Vol] 75 mg/dL 9 [facility] Diff and CBCon 08-24-2020 Anisocytosis Ql (Bld) Slight [facility] Comment on above: Performed By: #### C OVID-19 LIAT, SOFIANEG #### [facility] [address] Band form neutrophils/100 WBC (Bld) 1 % Normal 0-5 [facility] Comment on above: Performed By: #### C OVID-19 LIAT, SOFIANEG #### [facility] [address] [place] [address] [place] Basophilic stippling LM Ql (Bld) Slight Normal [facility] Comment on above: Performed By: #### C OVID-19 LIAT, SOFIANEG #### [facility] [address] [place] [address] [place] Erythrocyte distribution width (RBC) [Ratio] 16.6 % High 12.0-14.8 [facility] Comment on above: Performed By: #### C OVID-19 LIAT, SOFIANEG #### [facility] [address] [place] [address] [place] Hematocrit (Bld) [Volume fraction] 30.0 % Low 38.8-50.0 [facility] Comment on above: Performed By: #### C OVID-19 LIAT, SOFIANEG #### [facility] [address] [place] [address] [place] Hemoglobin (Bld) [Mass/Vol] 10.1 g/dL Low 13.0-17.0 [facility] Comment on above: Performed By: #### C OVID-19 LIAT, SOFIANEG #### [facility] [address] [place] [address] [place] Lymphocytes/100 WBC (Bld) 6 % Low 18-42 [facility] Comment on above: Performed By: #### C OVID-19 LIAT, SOFIANEG #### [address] MCH (RBC) [Entitic mass] 27.5 pg Normal 27.5-35.2 [facility] Comment on above: Performed By: #### C OVID-19 LIAT, SOFIANEG #### [address] MCV (RBC) [Entitic vol] 81.9 fL Low 83.5-101 [facility] Comment on above: Performed By: #### C OVID-19 LIAT, SOFIANEG #### [address] Mean Corpuscular HGB Conc 33.6 g/dL Normal 32.5-35.6 [facility] Comment on above: Performed By: #### C OVID-19 LIAT, SOFIANEG #### [address] Metamyelocytes 1 % High 0-0 [facility] Comment on above: Performed By: #### C OVID-19 LIAT, SOFIANEG #### [address] Monocytes/100 WBC (Bld) 4 % Normal 2-11 [facility] Comment on above: Performed By: #### C OVID-19 LIAT, SOFIANEG #### [place] [address] [place] Myelocytes 1 % High 0-0 [facility] Comment on above: Performed By: #### C OVID-19 LIAT, SOFIANEG #### [facility] [address] [place] [address] [place] Nucleated RBC/100 WBC (Bld) [Ratio] 0.0 % Normal 0-0.5 [facility] Comment on above: Result Comment: PERF ORMED BY: [place] [address] PATHOLOGIST AUTO JOB ESTIMATOR JORDAN RODRIGUEZ M.D. Performed By: #### C OVID-19 LIAT, SOFIANEG #### [address] Platelet Estimate Normal Normal Normal [facility] Comment on above: Performed By: #### C OVID-19 LIAT, SOFIANEG #### [address] Platelet mean volume (Bld) [Entitic vol] 7.0 fL Normal 6.6-10.1 [facility] Comment on above: Performed By: #### C OVID-19 LIAT, SOFIANEG #### [address] Platelet Morphology Normal Normal Normal [facility] Comment on above: Result Comment: PERF ORMED BY: [place] [address] PATHOLOGIST AUTO JOB ESTIMATOR JORDAN RODRIGUEZ M.D. Performed By: #### C OVID-19 LIAT, SOFIANEG #### [address] Platelets (Bld) [#/Vol] 359 10*3/uL Normal 150-450 [facility] Comment on above: Performed By: #### C OVID-19 LIAT, SOFIANEG #### [address] Polychromasia Slight Normal [facility] Comment on above: Performed By: #### C OVID-19 LIAT, SOFIANEG #### [address] RBC (Bld) [#/Vol] 3.66 10*6/uL Low 3.90-5.60 [facility] Comment on above: Performed By: #### C OVID-19 LIAT, SOFIANEG #### [facility] [address] [place] [address] [place] Rouleaux Slight Normal [facility] Comment on above: Performed By: #### C OVID-19 LIAT, SOFIANEG #### [facility] [address] [place] [address] Segmented neutrophils/100 WBC (Bld) 87 % High 50-70 [facility] Comment on above: Performed By: #### C OVID-19 LIAT, SOFIANEG #### [facility] [address] [place] [address] WBC (Bld) [#/Vol] 11.2 10*3/uL High 4.5-11.0 [facility] Comment on above: Performed By: #### C OVID-19 LIAT, SOFIANEG #### [address] ECG 12 lead ECGon 08-24-2020 ECG 12 lead ECG [facility] Main [place] [address] [place] [address] Electrocardiograph Report Signed Patient: Rashard Lyman MR#: [id number] : 1960 Acct:[id number] Age/Sex: 60 / M ADM Date: 08/18/20 Loc: Room: [address] [place] [address] Type: ADM IN Attending Dr: Gordon Ewing [...] 08/24/20 0743 Signed By: 08/24/20 1049 [facility] Erythrocyte basophilic stipp ling detectionon 08-24-2020 Basophilic stippling LM Ql (Bld) Slight [facility] Glucose Poct Glucometerson 0 08-24-2020 Glucose [Mass/Vol] 129 mg/dL Normal [facility] Comment on above: Result Comment: [place] [facility] Glucose Reference Range is dependent on time and content of last meal. Glucose of more than 200 mg/dL in a nonstressed, ambulatory subject supports the diagnosis of Diabetes Mellitus. PERFORMED BY: [address] [place] [address] PATHOLOGIST AUTO JOB ESTIMATOR JORDAN RODRIGUEZ M.D. Performed By: #### V BG #### Point of Care testing , Commemt1 Glu2: Cleaned Meter [facility] Comment on above: Result Comment: PERF ORMED BY: [facility] [address] [address] PATHOLOGIST AUTO JOB ESTIMATOR JORDAN RODRIGUEZ M.D. Performed By: #### V BG #### Point of Care testing , Glucose [Mass/Vol] 108 mg/dL [facility] Comment on above: Result Comment: [place] Glucose Reference Range is dependent on time and content of last meal. Glucose of more than 200 mg/dL in a nonstressed, ambulatory subject supports the diagnosis of Diabetes Mellitus. Performed By: #### V BG #### Point of Care testing , Glucose [Mass/Vol] 60 mg/dL Off scale low [facility] Comment on above: Result Comment: [place] [facility] Glucose Reference Range is dependent on time and content of last meal. Glucose of more than 200 mg/dL in a nonstressed, ambulatory subject supports the diagnosis of Diabetes Mellitus. PERFORMED BY: [facility] [address] [place] [id number] PATHOLOGIST AUTO JOB ESTIMATOR JORDAN RODRIGUEZ M.D. Performed By: #### V BG #### Point of Care testing , Glucose [Mass/Vol] 130 mg/dL Normal [facility] Comment on above: Result Comment: [place] [facility] Glucose Reference Range is dependent on time and content of last meal. Glucose of more than 200 mg/dL in a nonstressed, ambulatory subject supports the diagnosis of Diabetes Mellitus. PERFORMED BY: [place] [address] PATHOLOGIST AUTO JOB ESTIMATOR JORDAN RODRIGUEZ M.D. Performed By: #### V BG #### Point of Care testing , Glucose [Mass/Vol] 72 mg/dL Normal [facility] Comment on above: Result Comment: [place] [facility] Glucose Reference Range is dependent on time and content of last meal. Glucose of more than 200 mg/dL in a nonstressed, ambulatory subject supports the diagnosis of Diabetes Mellitus. PERFORMED BY: [place] [address] PATHOLOGIST AUTO JOB ESTIMATOR JORDAN RODRIGUEZ M.D. Performed By: #### C OVID-19 DELGADO JOSUE #### [address] Glucose [Mass/Vol] 96 mg/dL Normal [facility] Comment on above: Result Comment: [place] [facility] Glucose Reference Range is dependent on time and content of last meal. Glucose of more than 200 mg/dL in a nonstressed, ambulatory subject supports the diagnosis of Diabetes Mellitus. PERFORMED BY: [place] [id number] PATHOLOGIST AUTO JOB ESTIMATOR JORDAN RODRIGUEZ M.D. Performed By: #### C OVID-19 BARB JOSUEIANEG #### [address] Laboratory - Hematology and Cell countson 08-24-2020 Band form neutrophils/100 WBC (Bld) 1 % 0-5 [facility] Lymphocytes/100 WBC Auto (Bl d)on 08-24-2020 Lymphocytes/100 WBC (Bld) 6 % 18-42 [facility] Metamyelocytes/100 WBC Manua l cnt (Bld)on 08-24-2020 Metamyelocytes/100 WBC (Bld) 1 % 0-0 [facility] Monocytes/100 WBC Manual cnt (Bld)on 08-24-2020 Monocytes/100 WBC (Bld) 4 % 2-11 [facility] Myelocytes/100 WBC Manual cn t (Bld)on 08-24-2020 Myelocytes/100 WBC (Bld) 1 % 0-0 [facility] No Panel Informationon 08-24 Roucoby Rasheed [facility] Renal Function Panelon 08-24 Albumin [Mass/Vol] 1.9 g/dL Low 3.2-5.5 [facility] Comment on above: Performed By: #### C OVID-19 LIAT, SOFIANEG #### [facility] [address] Calcium [Mass/Vol] 8.8 mg/dL Normal 8.2-10.2 [facility] Comment on above: Performed By: #### C OVID-19 LIAT, SOFIANEG #### [facility] [address] Chloride [Moles/Vol] 99 mmol/L Normal 95-114 [facility] Comment on above: Performed By: #### C OVID-19 LIAT, SOFIANEG #### [facility] [address] CO2 [Moles/Vol] 24.4 mmol/L Normal 22.0-30.0 [facility] Comment on above: Performed By: #### C OVID-19 LIAT, SOFIANEG #### [facility] [address] Creatinine [Mass/Vol] 4.21 mg/dL High 0.64-1.27 [facility] Comment on above: Performed By: #### C OVID-19 LIAT, SOFIANEG #### [facility] [address] [place] [address] [place] Creatinine Clr Calc Pharmacy 30.71 Normal [facility] Comment on above: Result Comment: PERF ORMED BY: [place] [address] PATHOLOGIST AUTO JOB ESTIMATOR JORDAN RODRIGUEZ M.D. Performed By: #### C OVID-19 LIAT, SOFIANEG #### [facility] [address] Estimated GFR ( Camilla 18 [facility] Comment on above: Result Comment: GFR estimated reference range: According to KDOQI guidelines, <60 ml/min/1.73m2 is sufficient to diagnose a patient with chronic kidney disease. Performed By: #### C OVID-19 LIAT, SOFIANEG #### [facility] [address] Estimated GFR (Non- Am 15 [facility] Comment on above: Performed By: #### C OVID-19 LIAT, SOFIANEG #### [address] Glucose [Mass/Vol] 79 mg/dL Normal 70-100 [facility] Comment on above: Result Comment: [place] [facility] Glucose Reference Range is dependent on time and content of last meal. Glucose of more than 200 mg/dL in a nonstressed, ambulatory subject supports the diagnosis of Diabetes Mellitus. ADA recommended reference range Performed By: #### C OVID-19 LIAT, SOFIANEG #### [address] Phosphate [Mass/Vol] 5.9 mg/dL High 2.5-4.6 [facility] Comment on above: Performed By: #### C OVID-19 LIAT, SOFIANEG #### [place] [address] [place] Potassium [Moles/Vol] 4.2 mmol/L Normal 3.5-5.1 [facility] Comment on above: Performed By: #### C OVID-19 LIAT, SOFIANEG #### [place] [address] [place] Sodium [Moles/Vol] 134 mmol/L Low 136-146 [facility] Comment on above: Performed By: #### C OVID-19 LIAT, SOFIANEG #### [place] [address] [place] Urea nitrogen [Mass/Vol] 69 mg/dL High 9-23 [facility] Comment on above: Performed By: #### C OVID-19 LIAT, SOFIANEG #### [address] Segmented neutrophils/100 WB C Manual cnt (Bld)on 08-24-2020 Segmented neutrophils/100 WBC (Bld) 87 % 50-70 [facility] KILLIAN Antinuclear Antibodieson 08-23-2020 Antinuclear Abs, IFA Negative Normal . [facility] Comment on above: Result Comment: Nega tive <1:80 Borderline 1:80 Positive >1:80 Performed at: [facility] [id number] Architecture Faculty Member: Mata Brian PhD, Phone: [phone] PERFORMED BY: [place] [address] PATHOLOGIST AUTO JOB ESTIMATOR JORDAN RODRIGUEZ M.D. Performed By: #### P P #### [address] Complete Blood Count Auto Di ffon 08-23-2020 Basophils (Bld) [#/Vol] 0.0 10*3/uL Normal 0.0-0.2 [facility] Comment on above: Result Comment: PERF ORMED BY: [place] [address] PATHOLOGIST AUTO JOB ESTIMATOR JORDAN RODRIGUEZ M.D. Performed By: #### C OVID-19 LIAT, SOFIANEG #### [address] Basophils/100 WBC (Bld) 0.3 % Normal . [facility] Comment on above: Performed By: #### C OVID-19 LIAT, SOFIANEG #### [place] [address] [place] Eosinophils (Bld) [#/Vol] 0.0 10*3/uL Normal 0.0-0.45 [facility] Comment on above: Performed By: #### C OVID-19 LIAT, SOFIANEG #### [facility] [address] [place] [address] Eosinophils/100 WBC (Bld) 0.1 % Normal . [facility] Comment on above: Performed By: #### C OVID-19 LIAT, SOFIANEG #### [facility] [address] Erythrocyte distribution width (RBC) [Ratio] 16.3 % High 12.0-14.8 [facility] Comment on above: Performed By: #### C OVID-19 LIAT, SOFIANEG #### [address] Hematocrit (Bld) [Volume fraction] 29.4 % Low 38.8-50.0 [facility] Comment on above: Performed By: #### C OVID-19 LIAT, SOFIANEG #### [address] Hemoglobin (Bld) [Mass/Vol] 9.4 g/dL Low 13.0-17.0 [facility] Comment on above: Performed By: #### C OVID-19 LIAT, SOFIANEG #### [facility] [address] [place] [address] Lymphocytes (Bld) [#/Vol] 0.5 10*3/uL Low 1.00-4.8 [facility] Comment on above: Performed By: #### C OVID-19 LIAT, SOFIANEG #### [address] Lymphocytes/100 WBC (Bld) 4.1 % Normal . [facility] Comment on above: Performed By: #### C OVID-19 LIAT, SOFIANEG #### [facility] [address] [place] [address] MCH (RBC) [Entitic mass] 26.2 pg Low 27.5-35.2 [facility] Comment on above: Performed By: #### C OVID-19 LIAT, SOFIANEG #### [facility] [address] [place] [address] MCV (RBC) [Entitic vol] 82.4 fL Low 83.5-101 [facility] Comment on above: Performed By: #### C OVID-19 LIAT, SOFIANEG #### [facility] [address] Mean Corpuscular HGB Conc 31.8 g/dL Low 32.5-35.6 [facility] Comment on above: Performed By: #### C OVID-19 LIAT, SOFIANEG #### [facility] [address] [place] [address] [place] Monocytes (Bld) [#/Vol] 0.6 10*3/uL Normal 0.0-0.8 [facility] Comment on above: Performed By: #### C OVID-19 LIAT, SOFIANEG #### [facility] [address] [place] [address] [place] Monocytes/100 WBC (Bld) 4.9 % Normal . [facility] Comment on above: Performed By: #### C OVID-19 LIAT, SOFIANEG #### [facility] [address] [place] [address] [place] Neutrophils (Bld) [#/Vol] 11.2 10*3/uL High 1.8-7.7 [facility] Comment on above: Performed By: #### C OVID-19 LIAT, SOFIANEG #### [facility] [address] [place] [address] [place] Neutrophils/100 WBC (Bld) 90.6 % Normal . [facility] Comment on above: Performed By: #### C OVID-19 LIAT, SOFIANEG #### [facility] [address] [place] [address] [place] Nucleated RBC/100 WBC (Bld) [Ratio] 0.2 % Normal 0-0.5 [facility] Comment on above: Performed By: #### C OVID-19 LIAT, SOFIANEG #### [facility] [address] [place] [address] [place] Platelet mean volume (Bld) [Entitic vol] 8.0 fL Normal 6.6-10.1 [facility] Comment on above: Performed By: #### C OVID-19 LIAT, SOFIANEG #### [facility] [address] Platelets (Bld) [#/Vol] 303 10*3/uL Normal 150-450 [facility] Comment on above: Performed By: #### C OVID-19 LIAT, SOFIANEG #### [facility] [address] RBC (Bld) [#/Vol] 3.57 10*6/uL Low 3.90-5.60 [facility] Comment on above: Performed By: #### C OVID-19 LIAT, SOFIANEG #### [facility] [address] WBC (Bld) [#/Vol] 12.4 10*3/uL High 4.5-11.0 [facility] Comment on above: Performed By: #### C OVID-19 LIAT, SOFIANEG #### [facility] [address] ECG 12 lead ECGon 08-23-2020 ECG 12 lead ECG [facility] Main [place] [address] [place] [address] Electrocardiograph Report Signed Patient: Rashard Lyman MR#: [id number] : 1960 Acct:[id number] Age/Sex: 60 / M ADM Date: 08/18/20 Loc: Room: [address] [place] [address] Type: ADM IN Attending Dr: Gordon Ewing [...] 08/23/20 0730 Signed By: 08/23/20 1047 [facility] Glucose Poct Glucometerson 0 08-23-2020 Glucose [Mass/Vol] 160 mg/dL Normal [facility] Comment on above: Result Comment: [place] om Glucose Reference Range is dependent on time and content of last meal. Glucose of more than 200 mg/dL in a nonstressed, ambulatory subject supports the diagnosis of Diabetes Mellitus. PERFORMED BY: [place] [address] PATHOLOGIST AUTO JOB ESTIMATOR JORDAN RODRIGUEZ M.D. Performed By: #### C OVID-19 BALJEET JOSUEEG #### [address] Glucose [Mass/Vol] 212 mg/dL Normal [facility] Comment on above: Result Comment: [place] Glucose Reference Range is dependent on time and content of last meal. Glucose of more than 200 mg/dL in a nonstressed, ambulatory subject supports the diagnosis of Diabetes Mellitus. PERFORMED BY: [place] [address] PATHOLOGIST AUTO JOB ESTIMATOR JORDAN RODRIGUEZ M.D. Performed By: #### C OVID-19 LIAT SOFIANEG #### [address] Glucose [Mass/Vol] 159 mg/dL Normal [facility] Comment on above: Result Comment: [place] Glucose Reference Range is dependent on time and content of last meal. Glucose of more than 200 mg/dL in a nonstressed, ambulatory subject supports the diagnosis of Diabetes Mellitus. PERFORMED BY: [place] [address] PATHOLOGIST AUTO JOB ESTIMATOR JORDAN RODRIGUEZ M.D. Performed By: #### C OVID-19 LIAT, SOFIANEG #### [facility] [address] [place] [id number] [place] Glucose [Mass/Vol] 73 mg/dL Normal [facility] Comment on above: Result Comment: [place] om Glucose Reference Range is dependent on time and content of last meal. Glucose of more than 200 mg/dL in a nonstressed, ambulatory subject supports the diagnosis of Diabetes Mellitus. PERFORMED BY: [place] [address] PATHOLOGIST AUTO JOB ESTIMATOR JORDAN RODRIGUEZ M.D. Performed By: #### C OVID-19 LIAT, SOFIANEG #### [facility] [address] [place] [address] Commemt1 Glu2: Cleaned Meter [facility] Comment on above: Result Comment: PERF ORMED BY: [place] [address] PATHOLOGIST AUTO JOB ESTIMATOR JORDAN RODRIGUEZ M.D. Performed By: #### C OVID-19 LIAT, SOFIANEG #### [facility] [address] [place] [address] [place] Glucose [Mass/Vol] 88 mg/dL Normal [facility] Comment on above: Result Comment: [place] om Glucose Reference Range is dependent on time and content of last meal. Glucose of more than 200 mg/dL in a nonstressed, ambulatory subject supports the diagnosis of Diabetes Mellitus. Performed By: #### C OVID-19 LIAT SOFIANEG #### [facility] [address] [place] [address] [place] Commemt1 Glu2: Cleaned Meter [facility] Comment on above: Result Comment: PERF ORMED BY: [place] [address] PATHOLOGIST AUTO JOB ESTIMATOR JORDAN RODRIGUEZ M.D. Performed By: #### C OVID-19 LIAT, SOFIANEG #### [facility] [address] [place], [place] [id number] [place] Glucose [Mass/Vol] 69 mg/dL Normal [facility] Comment on above: Result Comment: [place] om Glucose Reference Range is dependent on time and content of last meal. Glucose of more than 200 mg/dL in a nonstressed, ambulatory subject supports the diagnosis of Diabetes Mellitus. Performed By: #### C OVID-19 BARB JOSUEIANEG #### [address] Commemt1 [facility] Comment on above: Result Comment: Glu2 : Will Repeat Test Performed By: #### C OVID-19 LIAT SOFIANEG #### [address] Commemt2 WILL NOTIFY /JOANNE [facility] Comment on above: Performed By: #### C OVID-19 LIAT SOFIANEG #### [address] Commemt3 Cleaned Meter [facility] Comment on above: Result Comment: PERF ORMED BY: [place] [address] PATHOLOGIST AUTO JOB ESTIMATOR JORDAN RODRIGUEZ M.D. Performed By: #### C OVID-19 LIAT SOFIANEG #### [address] Glucose [Mass/Vol] 59 mg/dL Off scale low [facility] Comment on above: Result Comment: [facility] Glucose Reference Range is dependent on time and content of last meal. Glucose of more than 200 mg/dL in a nonstressed, ambulatory subject supports the diagnosis of Diabetes Mellitus. Performed By: #### C OVID-19 LIAT SOFIANEG #### [address] No Panel Informationon 08-23 Bedside Glucose #[address]/joanne [facility] Bedside Glucose #3 Comment Cleaned meter [facility] Renal Function Panelon 08-23 Albumin [Mass/Vol] 1.9 g/dL Low 3.2-5.5 [facility] Comment on above: Performed By: #### C OVID-19 LIAT SOFIANEG #### [address] [place] [address] [place] Calcium [Mass/Vol] 8.7 mg/dL Normal 8.2-10.2 [facility] Comment on above: Performed By: #### C OVID-19 LIAT, SOFIANEG #### [facility] [address] [place] [address] [place] Chloride [Moles/Vol] 95 mmol/L Normal 95-114 [facility] Comment on above: Performed By: #### C OVID-19 LIAT, SOFIANEG #### [facility] [address] [place] [address] [place] CO2 [Moles/Vol] 22.0 mmol/L Normal 22.0-30.0 [facility] Comment on above: Performed By: #### C OVID-19 LIAT, SOFIANEG #### [facility] [address] [place] [address] Creatinine [Mass/Vol] 4.79 mg/dL High 0.64-1.27 [facility] Comment on above: Performed By: #### C OVID-19 LIAT, SOFIANEG #### [facility] [address] [place] [address] [place] Creatinine Clr Calc Pharmacy 27.33 [facility] Comment on above: Result Comment: PERF ORMED BY: [place] [address] PATHOLOGIST AUTO JOB ESTIMATOR JORDAN RODRIGUEZ M.D. Performed By: #### C OVID-19 LIAT, SOFIANEG #### [facility] [address] [place] [address] Estimated GFR ( Camilla 15 [facility] Comment on above: Result Comment: GFR estimated reference range: According to KDOQI guidelines, <60 ml/min/1.73m2 is sufficient to diagnose a patient with chronic kidney disease. Performed By: #### C OVID-19 LIAT, SOFIANEG #### [facility] [address] [place] [address] [place] Estimated GFR (Non- Am 13 [facility] Comment on above: Performed By: #### C OVID-19 LIAT, SOFIANEG #### [facility] [address] Glucose [Mass/Vol] 78 mg/dL Normal 70-100 [facility] Comment on above: Result Comment: [facility] Glucose Reference Range is dependent on time and content of last meal. Glucose of more than 200 mg/dL in a nonstressed, ambulatory subject supports the diagnosis of Diabetes Mellitus. ADA recommended reference range Performed By: #### C OVID-19 LIAT SOFIANEG #### [facility] [address] Phosphate [Mass/Vol] 7.5 mg/dL High 2.5-4.6 [facility] Comment on above: Performed By: #### C OVID-19 LIAT SOFIANEG #### [address] Potassium [Moles/Vol] 4.4 mmol/L Normal 3.5-5.1 [facility] Comment on above: Performed By: #### C OVID-19 LIAT SOFIANEG #### [address] Sodium [Moles/Vol] 131 mmol/L Low 136-146 [facility] Comment on above: Performed By: #### C OVID-19 LIAT SOFIANEG #### [address] Urea nitrogen [Mass/Vol] 63 mg/dL High 9-23 [facility] Comment on above: Performed By: #### C OVID-19 LIAT SOFIANEG #### [facility] [address] [place] [id number] [place] Rheumatoid Factoron 08-24-19 21 Rheumatoid Factor 20.6 High 0.0-13.9 [facility] Comment on above: Result Comment: Perf ormed at: [facility] - [facility] [place] [address] [place], [place] [id number] Architecture Faculty Member: Mata Brian PhD, Phone: [phone] Performed By: #### P P #### [facility] [address] [place] [address] [place] Serum nuclear antibody titer on 08-23-2020 Nuclear Ab (S) [Titer] Negative [facility] Comment on above: Negative <1:80 Matthew yoon 1:80 Positive >1:80Performed at: [facility] [address] [id number] Director: Mata Brian PhD, Phone: [phone] Serum or plasma rheumatoid f actor measurement (units/volume)on 08-23-2020 Rheumatoid factor Qn 20.6 [IU]/mL [facility] Comment on above: Performed at: [facility] [address] [id number] Director: Mata Brian PhD, Phone: [phone] Basic Metabolic Panelon 07-29 Calcium [Mass/Vol] 8.6 mg/dL Normal 8.2-10.2 [facility] Comment on above: Performed By: #### C MP, CBC, MG, TROP, BNP #### [address] Chloride [Moles/Vol] 94 mmol/L Low 95-114 [facility] Comment on above: Performed By: #### C MP, CBC, MG, TROP, BNP #### [address] CO2 [Moles/Vol] 21.4 mmol/L Low 22.0-30.0 [facility] Comment on above: Performed By: #### C MP, CBC, MG, TROP, BNP #### [address] Creatinine [Mass/Vol] 4.84 mg/dL High 0.64-1.27 [facility] Comment on above: Performed By: #### C MP, CBC, MG, TROP, BNP #### [address] Creatinine Clr Calc Pharmacy 27.02 Normal [facility] Comment on above: Result Comment: PERF ORMED BY: [place] [address] PATHOLOGIST AUTO JOB ESTIMATOR JORDAN RODRIGUEZ M.D. Performed By: #### C MP, CBC, MG, TROP, BNP #### [address] Estimated GFR ( Camilla 15 [facility] Comment on above: Result Comment: GFR estimated reference range: According to KDOQI guidelines, <60 ml/min/1.73m2 is sufficient to diagnose a patient with chronic kidney disease. Performed By: #### C MP, CBC, MG, TROP, BNP #### [address] Estimated GFR (Non- Am 12 [facility] Comment on above: Performed By: #### C MP, CBC, MG, TROP, BNP #### [address] Glucose [Mass/Vol] 154 mg/dL High 70-100 [facility] Comment on above: Result Comment: [place] om Glucose Reference Range is dependent on time and content of last meal. Glucose of more than 200 mg/dL in a nonstressed, ambulatory subject supports the diagnosis of Diabetes Mellitus. ADA recommended reference range Performed By: #### C MP, CBC, MG, TROP, BNP #### [address] Potassium [Moles/Vol] 4.9 mmol/L Normal 3.5-5.1 [facility] Comment on above: Performed By: #### C MP, CBC, MG, TROP, BNP #### [address] Sodium [Moles/Vol] 129 mmol/L Low 136-146 [facility] Comment on above: Performed By: #### C MP, CBC, MG, TROP, BNP #### [address] Urea nitrogen [Mass/Vol] 54 mg/dL High 9-23 [facility] Comment on above: Performed By: #### C MP, CBC, MG, TROP, BNP #### [address] biopsyon 08-22-2020 Transferrin [Mass/Vol] 104 mg/dL 180-380 [facility] Complete Blood Count Auto Di ffon 08-22-2020 Basophils (Bld) [#/Vol] 0.0 10*3/uL Normal 0.0-0.2 [facility] Comment on above: Result Comment: PERF ORMED BY: [place] [address] PATHOLOGIST AUTO JOB ESTIMATOR JORDAN RODRIGUEZ M.D. Performed By: #### C MP, CBC, MG, TROP, BNP #### [address] Basophils/100 WBC (Bld) 0.2 % Normal . [facility] Comment on above: Performed By: #### C MP, CBC, MG, TROP, BNP #### [address] Eosinophils (Bld) [#/Vol] 0.0 10*3/uL Normal 0.0-0.45 [facility] Comment on above: Performed By: #### C MP, CBC, MG, TROP, BNP #### [address] Eosinophils/100 WBC (Bld) 0.1 % Normal . [facility] Comment on above: Performed By: #### C MP, CBC, MG, TROP, BNP #### [address] Erythrocyte distribution width (RBC) [Ratio] 16.4 % High 12.0-14.8 [facility] Comment on above: Performed By: #### C MP, CBC, MG, TROP, BNP #### [address] Hematocrit (Bld) [Volume fraction] 30.4 % Low 38.8-50.0 [facility] Comment on above: Performed By: #### C MP, CBC, MG, TROP, BNP #### [address] Hemoglobin (Bld) [Mass/Vol] 9.9 g/dL Low 13.0-17.0 [facility] Comment on above: Performed By: #### C MP, CBC, MG, TROP, BNP #### [address] Lymphocytes (Bld) [#/Vol] 0.6 10*3/uL Low 1.00-4.8 [facility] Comment on above: Performed By: #### C MP, CBC, MG, TROP, BNP #### [address] Lymphocytes/100 WBC (Bld) 5.6 % Normal . [facility] Comment on above: Performed By: #### C MP, CBC, MG, TROP, BNP #### [address] MCH (RBC) [Entitic mass] 27.1 pg Low 27.5-35.2 [facility] Comment on above: Performed By: #### C MP, CBC, MG, TROP, BNP #### [address] MCV (RBC) [Entitic vol] 83.4 fL Low 83.5-101 [facility] Comment on above: Performed By: #### C MP, CBC, MG, TROP, BNP #### [address] Mean Corpuscular HGB Conc 32.5 g/dL Normal 32.5-35.6 [facility] Comment on above: Performed By: #### C MP, CBC, MG, TROP, BNP #### [address] Monocytes (Bld) [#/Vol] 0.8 10*3/uL Normal 0.0-0.8 [facility] Comment on above: Performed By: #### C MP, CBC, MG, TROP, BNP #### [address] Monocytes/100 WBC (Bld) 7.7 % Normal . [facility] Comment on above: Performed By: #### C MP, CBC, MG, TROP, BNP #### [address] Neutrophils (Bld) [#/Vol] 9.5 10*3/uL High 1.8-7.7 [facility] Comment on above: Performed By: #### C MP, CBC, MG, TROP, BNP #### [address] Neutrophils/100 WBC (Bld) 86.4 % Normal . [facility] Comment on above: Performed By: #### C MP, CBC, MG, TROP, BNP #### [address] Nucleated RBC/100 WBC (Bld) [Ratio] 0.0 % Normal 0-0.5 [facility] Comment on above: Performed By: #### C MP, CBC, MG, TROP, BNP #### [address] Platelet mean volume (Bld) [Entitic vol] 7.8 fL Normal 6.6-10.1 [facility] Comment on above: Performed By: #### C MP, CBC, MG, TROP, BNP #### [address] Platelets (Bld) [#/Vol] 227 10*3/uL Normal 150-450 [facility] Comment on above: Performed By: #### C MP, CBC, MG, TROP, BNP #### [place] [address] [place] RBC (Bld) [#/Vol] 3.64 10*6/uL Low 3.90-5.60 [facility] Comment on above: Performed By: #### C MP, CBC, MG, TROP, BNP #### [address] WBC (Bld) [#/Vol] 11.0 10*3/uL Normal 4.5-11.0 [facility] Comment on above: Performed By: #### C MP, CBC, MG, TROP, BNP #### [place] [id number] [facility] ECG 12 lead ECGon 08-22-2020 ECG 12 lead ECG [facility] Main [place] [id number] Electrocardiograph Report Signed Patient: Rashard Lyman MR#: [id number] : 1960 Acct:[id number] Age/Sex: 60 / M ADM Date: 08/18/20 Loc: 4 Room: [address] [place] [address] Type: ADM IN Attending Dr: Gordon Ewing [...] 08/22/20 1221 Signed By: 08/23/20 1047 [facility] ECG 12 lead ECG [facility] Main [place] [id number] Electrocardiograph Report Signed Patient: Rashard Lyman MR#: [id number] : 1960 Acct:[id number] Age/Sex: 60 / M ADM Date: 08/18/20 Loc: 4 Room: [address] [place] [address] Type: ADM IN Attending Dr: Gordon Ewing [...] MD 08/22/20 0751 Signed By: 08/22/20 1201 [facility] echo transthoracicon [facility] echo transthoracic [facility] [place] [address] Echocardiogram Signed Patient: Rashard Lyman MR#: [id number] : 1960 Acct:[id number] Age/Sex: 60 / M ADM Date: 08/18/20 Loc: Room: [address] [place] [address] Type: ADM IN Attending Dr: Gordon Ewing MD Ordering Provider: Gautam Bazan MD Date of Service: 08/22/20 [facility] echo transthoracic: Pericarditis Copies to: [...] 08/22/20 1016 Signed By: 08/22/20 1138 [facility] FE PROon 08-22-2020 % Iron Saturation 11.0 % Low 20-50 [facility] Comment on above: Performed By: #### C MP, CBC, MG, TROP, BNP #### [facility] [address] Ferritin [Mass/Vol] 334.8 ng/mL Normal 23.9-336.2 [facility] Comment on above: Result Comment: PERF ORMED BY: [place] [address] PATHOLOGIST AUTO JOB ESTIMATOR JORDAN RODRIGUEZ M.D. Performed By: #### C MP, CBC, MG, TROP, BNP #### [facility] [address] Iron [Mass/Vol] 17 ug/dL Low 40-160 [facility] Comment on above: Performed By: #### C MP, CBC, MG, TROP, BNP #### [facility] [address] Total Iron Binding Capacity 146 ug/dL Low 255-450 [facility] Comment on above: Performed By: #### C MP, CBC, MG, TROP, BNP #### [facility] [address] Transferrin [Mass/Vol] 104 mg/dL Low 180-380 [facility] Comment on above: Performed By: #### C MP, CBC, MG, TROP, BNP #### [facility] [address] [place] [address] Ferritin [Mass/volume] in Se rum or Plasmaon 08-22-2020 Ferritin [Mass/Vol] 334.8 ng/mL 23.9-336.2 [facility] Glucose Poct Glucometerson 0 08-22-2020 Commemt1 Glu2: Cleaned Meter Normal [facility] Comment on above: Result Comment: PERF ORMED BY: [place] [address] PATHOLOGIST AUTO JOB ESTIMATOR JORDAN RODRIGUEZ M.D. Performed By: #### C OVID-19 LIAT SOFIANEG #### [facility] [address] [place] [address] Glucose [Mass/Vol] 81 mg/dL Normal [facility] Comment on above: Result Comment: [place] om Glucose Reference Range is dependent on time and content of last meal. Glucose of more than 200 mg/dL in a nonstressed, ambulatory subject supports the diagnosis of Diabetes Mellitus. Performed By: #### C OVID-19 LIAT, SOFIANEG #### [facility] [address] [place] [address] Glucose [Mass/Vol] 106 mg/dL Normal [facility] Comment on above: Result Comment: [place] om Glucose Reference Range is dependent on time and content of last meal. Glucose of more than 200 mg/dL in a nonstressed, ambulatory subject supports the diagnosis of Diabetes Mellitus. PERFORMED BY: [place] [address] PATHOLOGIST AUTO JOB ESTIMATOR JORDAN RODRIGUEZ M.D. Performed By: #### C OVID-19 LIAT, SOFIANEG #### [facility] [address] [place] [address] [place] Glucose [Mass/Vol] 158 mg/dL Normal [facility] Comment on above: Result Comment: [place] [facility] Glucose Reference Range is dependent on time and content of last meal. Glucose of more than 200 mg/dL in a nonstressed, ambulatory subject supports the diagnosis of Diabetes Mellitus. PERFORMED BY: [place] [address] PATHOLOGIST AUTO JOB ESTIMATOR JORDAN RODRIGUEZ M.D. Performed By: #### C OVID-19 LIAT, SOFIANEG #### [address] Glucose [Mass/Vol] 138 mg/dL Normal [facility] Comment on above: Result Comment: [place] [facility] Glucose Reference Range is dependent on time and content of last meal. Glucose of more than 200 mg/dL in a nonstressed, ambulatory subject supports the diagnosis of Diabetes Mellitus. PERFORMED BY: [place] [address] PATHOLOGIST AUTO JOB ESTIMATOR JORDAN RODRIGUEZ M.D. Performed By: #### C MP, CBC, MG, TROP, BNP #### [place] [address] [place] Glucose [Mass/Vol] 177 mg/dL Normal [facility] Comment on above: Result Comment: [place] om Glucose Reference Range is dependent on time and content of last meal. Glucose of more than 200 mg/dL in a nonstressed, ambulatory subject supports the diagnosis of Diabetes Mellitus. PERFORMED BY: [place] [address] PATHOLOGIST AUTO JOB ESTIMATOR JIANLAN SUN M.D. Performed By: #### C MP, CBC, MG, TROP, BNP #### [facility] [address] [place] [address] [place] Iron [Mass/volume] in Serum or Plasmaon 08-22-2020 Iron [Mass/Vol] 17 ug/dL 40-160 [facility] Iron binding capacity [Mass/ volume] in Serum or Plasmaon 08-22-2020 Iron binding capacity [Mass/Vol] 146 ug/dL 255-450 [facility] Iron saturation [Mass Fracti on] in Serum or Plasmaon 08-22-2020 Iron saturation [Mass fraction] 11.0 % 20-50 [facility] Basic Metabolic Panelon 07-29 Calcium [Mass/Vol] 8.8 mg/dL Normal 8.2-10.2 [facility] Comment on above: Performed By: #### C MP, CBC, MG, TROP, BNP #### [facility] [address] Chloride [Moles/Vol] 95 mmol/L Normal 95-114 [facility] Comment on above: Performed By: #### C MP, CBC, MG, TROP, BNP #### [facility] [address] CO2 [Moles/Vol] 24.4 mmol/L Normal 22.0-30.0 [facility] Comment on above: Performed By: #### C MP, CBC, MG, TROP, BNP #### [facility] [address] Creatinine [Mass/Vol] 4.31 mg/dL High 0.64-1.27 [facility] Comment on above: Performed By: #### C MP, CBC, MG, TROP, BNP #### [facility] [address] [place] [address] [place] Creatinine Clr Calc Pharmacy 30.19 Normal [facility] Comment on above: Result Comment: PERF ORMED BY: [place] [address] PATHOLOGIST AUTO JOB ESTIMATOR JORDAN RODRIGUEZ M.D. Performed By: #### C MP, CBC, MG, TROP, BNP #### [facility] [address] [place] [address] [place] Estimated GFR ( Camilla 17 [facility] Comment on above: Result Comment: GFR estimated reference range: According to KDOQI guidelines, <60 ml/min/1.73m2 is sufficient to diagnose a patient with chronic kidney disease. Performed By: #### C MP, CBC, MG, TROP, BNP #### [facility] [address] [place] [address] [place] Estimated GFR (Non- Am 14 [facility] Comment on above: Performed By: #### C MP, CBC, MG, TROP, BNP #### [facility] [address] Glucose [Mass/Vol] 206 mg/dL High 70-100 [facility] Comment on above: Result Comment: [place] om Glucose Reference Range is dependent on time and content of last meal. Glucose of more than 200 mg/dL in a nonstressed, ambulatory subject supports the diagnosis of Diabetes Mellitus. ADA recommended reference range Performed By: #### C MP, CBC, MG, TROP, BNP #### [facility] [address] Potassium [Moles/Vol] 4.3 mmol/L Normal 3.5-5.1 [facility] Comment on above: Performed By: #### C MP, CBC, MG, TROP, BNP #### [facility] [address] [place] [address] [place] Sodium [Moles/Vol] 131 mmol/L Low 136-146 [facility] Comment on above: Performed By: #### C MP, CBC, MG, TROP, BNP #### [facility] [address] [place] [address] [place] Urea nitrogen [Mass/Vol] 44 mg/dL High 9-23 [facility] Comment on above: Performed By: #### C MP, CBC, MG, TROP, BNP #### [facility] [address] [place] [address] [place] Creatine Kinaseon 08-21-2020 CK [Catalytic activity/Vol] 45 U/L Normal 22-269 [facility] Comment on above: Performed By: #### C MP, CBC, MG, TROP, BNP #### [facility] [address] Creatine kinase [Enzymatic a ctivity/volume] in Serum or Plasmaon 08-21-2020 CK [Catalytic activity/Vol] 45 U/L 22-269 [facility] Creatinine Kinase MBon 08-21 CK.MB [Mass/Vol] 2.3 ng/mL Normal 0.6-6.3 [facility] Comment on above: Performed By: #### C MP, CBC, MG, TROP, BNP #### [facility] [address] CKMB Relative Index 5.1 % High 0.00-2.50 [facility] Comment on above: Performed By: #### C MP, CBC, MG, TROP, BNP #### [facility] [address] ECG 12 lead ECGon 08-21-2020 ECG 12 lead ECG [facility] [place] [address] Electrocardiograph Report Signed Patient: Rashard Lyman MR#: [id number] : 1960 Acct:[id number] Age/Sex: 60 / M ADM Date: 08/18/20 Loc: Room: [address] [place] [address] Type: ADM IN Attending Dr: Eugene Morel [...] Ochoa DO 08/21/20 0956 Signed By: 08/21/202008 [facility] ECG 12 lead ECG [facility] Main [place] [id number] Electrocardiograph Report Signed Patient: Rashard Lyman MR#: [id number] : 1960 Acct:[id number] Age/Sex: 60 / M ADM Date: 08/18/20 Loc: 4P Room: [address] [place] [address] Type: ADM IN Attending Dr: Eugene Morel [...] Ochoa DO 08/21/20 0828 Signed By: 08/21/202029 [facility] ECG 12 lead ECG [facility] Main [place] [id number] Electrocardiograph Report Signed Patient: Rashard Lyman MR#: [id number] : 1960 Acct:[id number] Age/Sex: 60 / M ADM Date: 08/18/20 Loc: 4 Room: [address] [place] [address] Type: ADM IN Attending Dr: Eugene Morel [...] Ochoa DO 08/21/20615 Signed By: 08/21/202053 Normal [facility] Glucose Poct Glucometerson 0 08-21-2020 Glucose [Mass/Vol] 210 mg/dL [facility] Comment on above: Result Comment: [facility] Glucose Reference Range is dependent on time and content of last meal. Glucose of more than 200 mg/dL in a nonstressed, ambulatory subject supports the diagnosis of Diabetes Mellitus. PERFORMED BY: [place] [address] PATHOLOGIST AUTO JOB ESTIMATOR JORDAN RODRIGUEZ M.D. Performed By: #### C MP, CBC, MG, TROP, BNP #### [facility] [address] [place] [address] Commemt1 Glu2: Cleaned Meter Normal [facility] Comment on above: Result Comment: PERF ORMED BY: [place] [address] PATHOLOGIST AUTO JOB ESTIMATOR JORDAN RODRIGUEZ M.D. Performed By: #### C MP, CBC, MG, TROP, BNP #### [facility] [address] [place], [place] [id number] [facility] Glucose [Mass/Vol] 136 mg/dL Normal [facility] Comment on above: Result Comment: [place] Glucose Reference Range is dependent on time and content of last meal. Glucose of more than 200 mg/dL in a nonstressed, ambulatory subject supports the diagnosis of Diabetes Mellitus. Performed By: #### C MP, CBC, MG, TROP, BNP #### [address] Commemt1 Glu2: Cleaned Meter [facility] Comment on above: Result Comment: PERF ORMED BY: [place] [address] PATHOLOGIST AUTO JOB ESTIMATOR JORDAN RODRIGUEZ M.D. Performed By: #### C MP, CBC, MG, TROP, BNP #### [address] Glucose [Mass/Vol] 198 mg/dL Normal [facility] Comment on above: Result Comment: [place] Glucose Reference Range is dependent on time and content of last meal. Glucose of more than 200 mg/dL in a nonstressed, ambulatory subject supports the diagnosis of Diabetes Mellitus. Performed By: #### C MP, CBC, MG, TROP, BNP #### [address] Commemt1 Glu2: Cleaned Meter [facility] Comment on above: Result Comment: PERF ORMED BY: [place] [address] PATHOLOGIST AUTO JOB ESTIMATOR JORDAN RODRIGUEZ M.D. Performed By: #### C MP, CBC, MG, TROP, BNP #### [place] [address] [place] Glucose [Mass/Vol] 221 mg/dL Normal [facility] Comment on above: Result Comment: [place] Glucose Reference Range is dependent on time and content of last meal. Glucose of more than 200 mg/dL in a nonstressed, ambulatory subject supports the diagnosis of Diabetes Mellitus. Performed By: #### C MP, CBC, MG, TROP, BNP #### [address] Glucose [Mass/Vol] 210 mg/dL Normal [facility] Comment on above: Result Comment: [facility] Glucose Reference Range is dependent on time and content of last meal. Glucose of more than 200 mg/dL in a nonstressed, ambulatory subject supports the diagnosis of Diabetes Mellitus. PERFORMED BY: [place] [address] PATHOLOGIST AUTO JOB ESTIMATOR JORDAN RODRIGUEZ M.D. Performed By: #### C MP, CBC, MG, TROP, BNP #### [address] No Panel Informationon 08-21 Dohle Bodies Slight [facility] Scan and CBCon 08-21-2020 Anisocytosis Ql (Bld) Slight Normal [facility] Comment on above: Performed By: #### C MP, CBC, MG, TROP, BNP #### [address] Basophils (Bld) [#/Vol] 0.0 10*3/uL Normal 0.0-0.2 [facility] Comment on above: Performed By: #### C MP, CBC, MG, TROP, BNP #### [address] Basophils/100 WBC (Bld) 0.3 % Normal . [facility] Comment on above: Performed By: #### C MP, CBC, MG, TROP, BNP #### [facility] [address] [place] [address] Dohle Bodies Slight Normal [facility] Comment on above: Performed By: #### C MP, CBC, MG, TROP, BNP #### [facility] [address] [place] [address] Eosinophils (Bld) [#/Vol] 0.5 10*3/uL High 0.0-0.45 [facility] Comment on above: Performed By: #### C MP, CBC, MG, TROP, BNP #### [facility] [address] [place] [address] Eosinophils/100 WBC (Bld) 3.2 % Normal . [facility] Comment on above: Performed By: #### C MP, CBC, MG, TROP, BNP #### [address] Erythrocyte distribution width (RBC) [Ratio] 16.6 % High 12.0-14.8 [facility] Comment on above: Performed By: #### C MP, CBC, MG, TROP, BNP #### [address] Hematocrit (Bld) [Volume fraction] 31.8 % Low 38.8-50.0 [facility] Comment on above: Performed By: #### C MP, CBC, MG, TROP, BNP #### [address] Hemoglobin (Bld) [Mass/Vol] 10.3 g/dL Low 13.0-17.0 [facility] Comment on above: Performed By: #### C MP, CBC, MG, TROP, BNP #### [address] Lymphocytes (Bld) [#/Vol] 1.2 10*3/uL Normal 1.00-4.8 [facility] Comment on above: Performed By: #### C MP, CBC, MG, TROP, BNP #### [address] Lymphocytes/100 WBC (Bld) 8.1 % Normal . [facility] Comment on above: Performed By: #### C MP, CBC, MG, TROP, BNP #### [address] MCH (RBC) [Entitic mass] 26.8 pg Low 27.5-35.2 [facility] Comment on above: Performed By: #### C MP, CBC, MG, TROP, BNP #### [address] MCV (RBC) [Entitic vol] 83.1 fL Low 83.5-101 [facility] Comment on above: Performed By: #### C MP, CBC, MG, TROP, BNP #### [address] Mean Corpuscular HGB Conc 32.3 g/dL Low 32.5-35.6 [facility] Comment on above: Performed By: #### C MP, CBC, MG, TROP, BNP #### [address] Monocytes (Bld) [#/Vol] 1.7 10*3/uL High 0.0-0.8 [facility] Comment on above: Performed By: #### C MP, CBC, MG, TROP, BNP #### [address] Monocytes/100 WBC (Bld) 11.4 % Normal . [facility] Comment on above: Performed By: #### C MP, CBC, MG, TROP, BNP #### [address] Neutrophils (Bld) [#/Vol] 11.2 10*3/uL High 1.8-7.7 [facility] Comment on above: Performed By: #### C MP, CBC, MG, TROP, BNP #### [address] Neutrophils/100 WBC (Bld) 77.0 % Normal . [facility] Comment on above: Performed By: #### C MP, CBC, MG, TROP, BNP #### [address] Nucleated RBC/100 WBC (Bld) [Ratio] 0.1 % Normal 0-0.5 [facility] Comment on above: Performed By: #### C MP, CBC, MG, TROP, BNP #### [address] Platelet Estimate Normal Normal Normal [facility] Comment on above: Performed By: #### C MP, CBC, MG, TROP, BNP #### [address] Platelet mean volume (Bld) [Entitic vol] 7.8 fL Normal 6.6-10.1 [facility] Comment on above: Performed By: #### C MP, CBC, MG, TROP, BNP #### [address] Platelet Morphology Normal Normal Normal [facility] Comment on above: Result Comment: PERF ORMED BY: [place] [address] PATHOLOGIST AUTO JOB ESTIMATOR JORDAN RODRIGUEZ M.D. Performed By: #### C MP, CBC, MG, TROP, BNP #### [address] Platelets (Bld) [#/Vol] 265 10*3/uL Normal 150-450 [facility] Comment on above: Performed By: #### C MP, CBC, MG, TROP, BNP #### [address] RBC (Bld) [#/Vol] 3.83 10*6/uL Low 3.90-5.60 [facility] Comment on above: Performed By: #### C MP, CBC, MG, TROP, BNP #### [address] WBC (Bld) [#/Vol] 14.6 10*3/uL High 4.5-11.0 [facility] Comment on above: Performed By: #### C MP, CBC, MG, TROP, BNP #### [address] Serum or plasma cardiac trop onin I measurement (mass/volume)on 08-21-2020 Troponin I.cardiac [Mass/Vol] ng/mL 0-0.02 [facility] Comment on above: HÉCTOR UT Cut off value > or equal to 0.03 ng/mL in conjunction with clinical conditions of myocardial infarction.(www.escardio.org/guidelines) Serum or plasma creatine kin ase MB (CKMB)/total creatine kinase (CK) ratio by calculaon 08-21-2020 CK.MB Calc [Catalytic fraction] 5.1 % 0.00-2.50 [facility] Serum or plasma creatine kin ase MB measurement (mass/volume)on 08-21-2020 CK.MB [Mass/Vol] 2.3 ng/mL 0.6-6.3 [facility] Troponin I(TnI)on 08-21-2020 Troponin I.cardiac [Mass/Vol] ng/mL Normal 0-0.02 [facility] Comment on above: Result Comment: HÉCTOR UT Cut off value > or equal to 0.03 ng/mL in conjunction with clinical conditions of myocardial infarction. (www.escardio.org/guidelines) PERFORMED BY: [place] [address] PATHOLOGIST AUTO JOB ESTIMATOR JORDAN RODRIGUEZ M.D. Performed By: #### C MP, CBC, MG, TROP, BNP #### [address] Troponin I.cardiac [Mass/Vol] ng/mL Normal 0-0.02 [facility] Comment on above: Result Comment: HÉCTOR UT Cut off value > or equal to 0.03 ng/mL in conjunction with clinical conditions of myocardial infarction. (www.escardio.org/guidelines) PERFORMED BY: [place] [address] PATHOLOGIST AUTO JOB ESTIMATOR JORDAN RODRIGUEZ M.D. Performed By: #### C MP, CBC, MG, TROP, BNP #### [address] Basic Metabolic Panelon 07-29 Calcium [Mass/Vol] 8.4 mg/dL Normal 8.2-10.2 [facility] Comment on above: Performed By: #### C MP, CBC, MG, TROP, BNP #### [address] Chloride [Moles/Vol] 99 mmol/L Normal 95-114 [facility] Comment on above: Performed By: #### C MP, CBC, MG, TROP, BNP #### [address] CO2 [Moles/Vol] 25.0 mmol/L Normal 22.0-30.0 [facility] Comment on above: Performed By: #### C MP, CBC, MG, TROP, BNP #### [facility] [address] Creatinine [Mass/Vol] 3.26 mg/dL High 0.64-1.27 [facility] Comment on above: Performed By: #### C MP, CBC, MG, TROP, BNP #### [address] Creatinine Clr Calc Pharmacy 39.92 [facility] Comment on above: Result Comment: PERF ORMED BY: [place] [address] PATHOLOGIST AUTO JOB ESTIMATOR JORDAN RODRIGUEZ M.D. Performed By: #### C MP, CBC, MG, TROP, BNP #### [address] Estimated GFR ( Camilla 24 [facility] Comment on above: Result Comment: GFR estimated reference range: According to KDOQI guidelines, <60 ml/min/1.73m2 is sufficient to diagnose a patient with chronic kidney disease. Performed By: #### C MP, CBC, MG, TROP, BNP #### [address] Estimated GFR (Non- Am 19 [facility] Comment on above: Performed By: #### C MP, CBC, MG, TROP, BNP #### [address] Glucose [Mass/Vol] 205 mg/dL High 70-100 [facility] Comment on above: Result Comment: [place] Glucose Reference Range is dependent on time and content of last meal. Glucose of more than 200 mg/dL in a nonstressed, ambulatory subject supports the diagnosis of Diabetes Mellitus. ADA recommended reference range Performed By: #### C MP, CBC, MG, TROP, BNP #### [address] Potassium [Moles/Vol] 3.5 mmol/L Normal 3.5-5.1 [facility] Comment on above: Performed By: #### C MP, CBC, MG, TROP, BNP #### [facility] [address] Sodium [Moles/Vol] 131 mmol/L Low 136-146 [facility] Comment on above: Performed By: #### C MP, CBC, MG, TROP, BNP #### [facility] [address] Urea nitrogen [Mass/Vol] 35 mg/dL High 9- [facility] Comment on above: Performed By: #### C MP, CBC, MG, TROP, BNP #### [facility] [address] C-Reactive Proteinon 021 C-Reactive Protein 19.4 mg/dL High 0.0-1.0 [facility] Comment on above: Result Comment: PERF ORMED BY: [place] [address] PATHOLOGIST AUTO JOB ESTIMATOR JORDAN RODRIGUEZ M.D. Performed By: #### C MP, CBC, MG, TROP, BNP #### [address] Erythrocyte Sedimentation Ra donato 08-20-2020 ESR (Bld) [Velocity] 108 mm/h High [facility] Comment on above: Result Comment: PERF ORMED BY: [place] [address] PATHOLOGIST AUTO JOB ESTIMATOR JORDAN RODRIGUEZ M.D. Performed By: #### C MP, CBC, MG, TROP, BNP #### [facility] [address] Erythrocyte sedimentation ra te by Photometric methodon 08-20-2020 ESR Photometric method (Bld) [Velocity] 108 mm/hr [facility] Glucose Poct Glucometerson 0 08-20-2020 Glucose [Mass/Vol] 195 mg/dL Normal [facility] Comment on above: Result Comment: [place] Glucose Reference Range is dependent on time and content of last meal. Glucose of more than 200 mg/dL in a nonstressed, ambulatory subject supports the diagnosis of Diabetes Mellitus. PERFORMED BY: [place] [address] PATHOLOGIST AUTO JOB ESTIMATOR JORDAN RODRIGUEZ M.D. Performed By: #### C MP, CBC, MG, TROP, BNP #### [facility] [address] [place] [address] Glucose [Mass/Vol] 171 mg/dL Normal [facility] Comment on above: Result Comment: [place] [facility] Glucose Reference Range is dependent on time and content of last meal. Glucose of more than 200 mg/dL in a nonstressed, ambulatory subject supports the diagnosis of Diabetes Mellitus. PERFORMED BY: [place] [address] PATHOLOGIST AUTO JOB ESTIMATOR JORDAN RODRIGUEZ M.D. Performed By: #### C MP, CBC, MG, TROP, BNP #### [address] Glucose [Mass/Vol] 246 mg/dL Normal [facility] Comment on above: Result Comment: [place] [facility] Glucose Reference Range is dependent on time and content of last meal. Glucose of more than 200 mg/dL in a nonstressed, ambulatory subject supports the diagnosis of Diabetes Mellitus. PERFORMED BY: [place] [address] PATHOLOGIST AUTO JOB ESTIMATOR JORDAN RODRIGUEZ M.D. Performed By: #### C MP, CBC, MG, TROP, BNP #### [address] Glucose [Mass/Vol] 274 mg/dL Normal [facility] Comment on above: Result Comment: [place] Glucose Reference Range is dependent on time and content of last meal. Glucose of more than 200 mg/dL in a nonstressed, ambulatory subject supports the diagnosis of Diabetes Mellitus. PERFORMED BY: [place] [address] PATHOLOGIST AUTO JOB ESTIMATOR JORDAN RODRIGUEZ M.D. Performed By: #### C MP, CBC, MG, TROP, BNP #### [address] [place] [address] [facility] Glucose [Mass/Vol] 221 mg/dL Normal [facility] Comment on above: Result Comment: [facility] Glucose Reference Range is dependent on time and content of last meal. Glucose of more than 200 mg/dL in a nonstressed, ambulatory subject supports the diagnosis of Diabetes Mellitus. PERFORMED BY: [place] [address] PATHOLOGIST AUTO JOB ESTIMATOR JORDAN RODRIGUEZ M.D. Performed By: #### C MP, CBC, MG, TROP, BNP #### [facility] [address] [place] [address] MR thoracic spine wo conon 0 08-20-2020 MR thoracic spine wo con [facility] [place] [address] [place] [address] MRI Report Signed Patient: Rashard Lyman MR#: [id number] : 1960 Acct:[id number] Age/Sex: 60 / M ADM Date: 08/18/20 Loc: Room: [address] [place] [address] Type: ADM IN Attending Dr: Eugene Morel [...] Chitra Brantley M.D.08/20/2020 6:27 PM Dictation Location: [place] [address] Transcribed By: [facility] 08/20/201826 Dictated By: Chitra Brantley MD 08/20/201816 Signed By: 08/20/201826 Normal [facility] Scan and CBCon 08-20-2020 Anisocytosis Ql (Bld) Slight Normal [facility] Comment on above: Performed By: #### C MP, CBC, MG, TROP, BNP #### [address] Basophils (Bld) [#/Vol] 0.0 10*3/uL Normal 0.0-0.2 [facility] Comment on above: Performed By: #### C MP, CBC, MG, TROP, BNP #### [place] [address] [place] Basophils/100 WBC (Bld) 0.3 % Normal . [facility] Comment on above: Performed By: #### C MP, CBC, MG, TROP, BNP #### [place] [address] [place] Dohle Bodies Slight Normal [facility] Comment on above: Performed By: #### C MP, CBC, MG, TROP, BNP #### [place] [address] [place] Eosinophils (Bld) [#/Vol] 0.5 10*3/uL High 0.0-0.45 [facility] Comment on above: Performed By: #### C MP, CBC, MG, TROP, BNP #### [place] [address] [place] Eosinophils/100 WBC (Bld) 3.8 % Normal . [facility] Comment on above: Performed By: #### C MP, CBC, MG, TROP, BNP #### [address] Erythrocyte distribution width (RBC) [Ratio] 16.2 % High 12.0-14.8 [facility] Comment on above: Performed By: #### C MP, CBC, MG, TROP, BNP #### [address] Hematocrit (Bld) [Volume fraction] 32.1 % Low 38.8-50.0 [facility] Comment on above: Performed By: #### C MP, CBC, MG, TROP, BNP #### [address] Hemoglobin (Bld) [Mass/Vol] 10.4 g/dL Low 13.0-17.0 [facility] Comment on above: Performed By: #### C MP, CBC, MG, TROP, BNP #### [address] Lymphocytes (Bld) [#/Vol] 1.5 10*3/uL Normal 1.00-4.8 [facility] Comment on above: Performed By: #### C MP, CBC, MG, TROP, BNP #### [address] Lymphocytes/100 WBC (Bld) 11.0 % Normal . [facility] Comment on above: Performed By: #### C MP, CBC, MG, TROP, BNP #### [address] MCH (RBC) [Entitic mass] 26.7 pg Low 27.5-35.2 [facility] Comment on above: Performed By: #### C MP, CBC, MG, TROP, BNP #### [address] MCV (RBC) [Entitic vol] 82.2 fL Low 83.5-101 [facility] Comment on above: Performed By: #### C MP, CBC, MG, TROP, BNP #### [address] [place] [address] [place] Mean Corpuscular HGB Conc 32.5 g/dL Normal 32.5-35.6 [facility] Comment on above: Performed By: #### C MP, CBC, MG, TROP, BNP #### [address] Monocytes (Bld) [#/Vol] 1.7 10*3/uL High 0.0-0.8 [facility] Comment on above: Performed By: #### C MP, CBC, MG, TROP, BNP #### [address] Monocytes/100 WBC (Bld) 12.5 % Normal . [facility] Comment on above: Performed By: #### C MP, CBC, MG, TROP, BNP #### [address] Neutrophils (Bld) [#/Vol] 9.7 10*3/uL High 1.8-7.7 [facility] Comment on above: Performed By: #### C MP, CBC, MG, TROP, BNP #### [address] Neutrophils/100 WBC (Bld) 72.4 % Normal . [facility] Comment on above: Performed By: #### C MP, CBC, MG, TROP, BNP #### [address] Nucleated RBC/100 WBC (Bld) [Ratio] 0.0 % Normal 0-0.5 [facility] Comment on above: Performed By: #### C MP, CBC, MG, TROP, BNP #### [address] Platelet Estimate Normal Normal Normal [facility] Comment on above: Performed By: #### C MP, CBC, MG, TROP, BNP #### [address] Platelet mean volume (Bld) [Entitic vol] 7.7 fL Normal 6.6-10.1 [facility] Comment on above: Performed By: #### C MP, CBC, MG, TROP, BNP #### [address] Platelet Morphology Normal Normal Normal [facility] Comment on above: Performed By: #### C MP, CBC, MG, TROP, BNP #### [address] Platelets (Bld) [#/Vol] 253 10*3/uL Normal 150-450 [facility] Comment on above: Performed By: #### C MP, CBC, MG, TROP, BNP #### [address] RBC (Bld) [#/Vol] 3.90 10*6/uL Normal 3.90-5.60 [facility] Comment on above: Performed By: #### C MP, CBC, MG, TROP, BNP #### [address] WBC (Bld) [#/Vol] 13.4 10*3/uL High 4.5-11.0 [facility] Comment on above: Performed By: #### C MP, CBC, MG, TROP, BNP #### [address] Serum or plasma C reactive p rotein measurement (mass/volume)on 08-20-2020 CRP [Mass/Vol] 19.4 mg/dL 0.0-1.0 [facility] A1C with Estimated Average G luon 08-19-2020 Glucose [Mass/Vol] 298 mg/dL Normal [facility] Comment on above: Result Comment: PERF ORMED BY: [place] [address] PATHOLOGIST AUTO JOB ESTIMATOR JORDAN RODRIGUEZ M.D. Performed By: #### C MP, CBC, MG, TROP, BNP #### [address] HbA1c (Bld) [Mass fraction] 12.0 % High 4.3-5.6 [facility] Comment on above: Result Comment: Incr eased risk for diabetes: 5.7 - 6.4 diabetes: >6.4 glycemic control for adults with diabetes: <7.0 Performed By: #### C MP, CBC, MG, TROP, BNP #### [address] ABO and Rh group post transf usion reaction Nom (Bld)on 08-19-2020 Microscopic observation Gram stain Nom (Unsp spec) [facility] Aerobic Cultureon 08-19-2020 Aerobic Culture Light Normal Respira tory Edith 2 Days Gram Stain Result 2+ White Blood Cells 1+ Epithelial Cells 1+ Gram Positive Cocci PERFORMED BY: [place] [address] PATHOLOGIST AUTO JOB ESTIMATOR JORDAN RODRIGUEZ M.D. [facility] Comment on above: Performed By: #### C MP, CBC, MG, TROP, BNP #### [address] Basic Metabolic Panelon 07-29 Calcium [Mass/Vol] 8.4 mg/dL Normal 8.2-10.2 [facility] Comment on above: Performed By: #### C MP, CBC, MG, TROP, BNP #### [address] Chloride [Moles/Vol] 98 mmol/L Normal 95-114 [facility] Comment on above: Performed By: #### C MP, CBC, MG, TROP, BNP #### [address] CO2 [Moles/Vol] 25.3 mmol/L Normal 22.0-30.0 [facility] Comment on above: Performed By: #### C MP, CBC, MG, TROP, BNP #### [address] Creatinine [Mass/Vol] 3.04 mg/dL High 0.64-1.27 [facility] Comment on above: Performed By: #### C MP, CBC, MG, TROP, BNP #### [address] [place] [address] [place] Creatinine Clr Calc Pharmacy 42.91 [facility] Comment on above: Performed By: #### C MP, CBC, MG, TROP, BNP #### [facility] [address] Estimated GFR ( Camilla 26 [facility] Comment on above: Result Comment: GFR estimated reference range: According to KDOQI guidelines, <60 ml/min/1.73m2 is sufficient to diagnose a patient with chronic kidney disease. Performed By: #### C MP, CBC, MG, TROP, BNP #### [facility] [address] Estimated GFR (Non- Am 21 [facility] Comment on above: Performed By: #### C MP, CBC, MG, TROP, BNP #### [address] Glucose [Mass/Vol] 328 mg/dL High 70-100 [facility] Comment on above: Result Comment: [place] [facility] Glucose Reference Range is dependent on time and content of last meal. Glucose of more than 200 mg/dL in a nonstressed, ambulatory subject supports the diagnosis of Diabetes Mellitus. ADA recommended reference range Performed By: #### C MP, CBC, MG, TROP, BNP #### [address] Potassium [Moles/Vol] 3.4 mmol/L Low 3.5-5.1 [facility] Comment on above: Performed By: #### C MP, CBC, MG, TROP, BNP #### [place] [address] [place] Sodium [Moles/Vol] 131 mmol/L Low 136-146 [facility] Comment on above: Performed By: #### C MP, CBC, MG, TROP, BNP #### [address] Urea nitrogen [Mass/Vol] 30 mg/dL High 9-23 [facility] Comment on above: Performed By: #### C MP, CBC, MG, TROP, BNP #### [facility] [address] [place] [id number] [facility] CT abdomen pelvis wo conon 0 08-19-2020 CT abdomen pelvis wo con [facility] Main [place] [address] [place] [id number] Scan Report Signed Patient: Rashard Lyman MR#: [id number] : 1960 Acct:[id number] Age/Sex: 60 / M ADM Date: 08/18/20 Loc: Room: [address] [place] [address] Type: ADM IN Attending Dr: Eugene Morel DO Ordering Provider: Eugene Morel DO Date of Service: 08/19/20 CT/CT abdomen pelvis wo con: left sided pain ([id number]) CT/CT chest wo con: left lung base [...] Hector Mckinney M.D.08/19/2020 8:01 PM Dictation Location: [place] [address] Transcribed By: [facility] 08/19/202000 Dictated By: Hector Mckinney II, MD 08/19/201947 Signed By: 08/19/202000 [facility] Glucose Poct Glucometerson 0 08-19-2020 Glucose [Mass/Vol] 266 mg/dL Normal [facility] Comment on above: Result Comment: [facility] Glucose Reference Range is dependent on time and content of last meal. Glucose of more than 200 mg/dL in a nonstressed, ambulatory subject supports the diagnosis of Diabetes Mellitus. PERFORMED BY: [place] [address] PATHOLOGIST AUTO JOB ESTIMATOR JORDAN RODRIGUEZ M.D. Performed By: #### C MP, CBC, MG, TROP, BNP #### [address] Glucose [Mass/Vol] 349 mg/dL Normal [facility] Comment on above: Result Comment: [facility] Glucose Reference Range is dependent on time and content of last meal. Glucose of more than 200 mg/dL in a nonstressed, ambulatory subject supports the diagnosis of Diabetes Mellitus. PERFORMED BY: [facility] [address] [place] [address] PATHOLOGIST AUTO JOB ESTIMATOR JORDAN RODRIGUEZ M.D. Performed By: #### C MP, CBC, MG, TROP, BNP #### [address] Glucose [Mass/Vol] 258 mg/dL Normal [facility] Comment on above: Result Comment: [place] [facility] Glucose Reference Range is dependent on time and content of last meal. Glucose of more than 200 mg/dL in a nonstressed, ambulatory subject supports the diagnosis of Diabetes Mellitus. PERFORMED BY: [place] [address] PATHOLOGIST AUTO JOB ESTIMATOR JORDAN RODRIGUEZ M.D. Performed By: #### C MP, CBC, MG, TROP, BNP #### [address] Glucose [Mass/Vol] 292 mg/dL Normal [facility] Comment on above: Result Comment: [place] [facility] Glucose Reference Range is dependent on time and content of last meal. Glucose of more than 200 mg/dL in a nonstressed, ambulatory subject supports the diagnosis of Diabetes Mellitus. PERFORMED BY: [place] [address] PATHOLOGIST AUTO JOB ESTIMATOR JORDAN RODRIGUEZ M.D. Performed By: #### C MP, CBC, MG, TROP, BNP #### [facility] [address] [place] [address] [place] Commemt1 Glu2: Cleaned Meter Normal [facility] Comment on above: Result Comment: PERF ORMED BY: [place] [address] PATHOLOGIST AUTO JOB ESTIMATOR JORDAN RODRIGUEZ M.D. Performed By: #### C MP, CBC, MG, TROP, BNP #### [address] Glucose [Mass/Vol] 350 mg/dL Normal [facility] Comment on above: Result Comment: [place] [facility] Glucose Reference Range is dependent on time and content of last meal. Glucose of more than 200 mg/dL in a nonstressed, ambulatory subject supports the diagnosis of Diabetes Mellitus. Performed By: #### C MP, CBC, MG, TROP, BNP #### [address] Glucose mean value [Mass/vol ume] in Blood Estimated from glycated hemoglobinon 08-19-2020 Average glucose Estimated from glycated hemoglobin (Bld) [Mass/Vol] 298 mg/dL [facility] Gram Stainon 08-19-2020 Microscopic observation Gram stain Nom (Unsp spec) Gram Stain Result 2+ White Blood Cells 1+ Epithelial Cells 1+ Gram Positive Cocci PERFORMED BY: [place] [address] PATHOLOGIST AUTO JOB ESTIMATOR JORDAN RODRIGUEZ M.D. [facility] Comment on above: Performed By: #### C MP, CBC, MG, TROP, BNP #### [address] Hemoglobin A1c percentageon 08-19-2020 HbA1c (Bld) [Mass fraction] 12.0 % 4.3-5.6 [facility] Comment on above: Increased risk for d iabetes: 5.7 - 6.4diabetes: >6.4glycemic control for adults with diabetes: <7.0 Laboratory - Chemistry and C hemistry - challengeon 08-19-2020 Magnesium [Mass/Vol] 2.0 mg/dL 1.6-2.6 [facility] Magnesiumon 08-19-2020 Magnesium [Mass/Vol] 2.0 mg/dL Normal 1.6-2.6 [facility] Comment on above: Performed By: #### C MP, CBC, MG, TROP, BNP #### [address] No Panel Informationon 08-19 25-Hydroxy Vitamin D Total 24.6 ng/mL 30-100 [facility] Comment on above: VITAMIN D STATUS 25( [place])VITAMIN D RANGE (ng/mL) Deficient <20 Insufficient 20 to <30Sufficient 30 to 100Reference: Aki MF,Oriana NC, Elli JONAS, et al. Evaluation,treatment, and prevention of vitamin D deficiency; an Endocrine Society clinical practice guideline. JCEM. 2010; 96(7):1911-30. Scan and CBCon 08-19-2020 Anisocytosis Ql (Bld) Slight Normal [facility] Comment on above: Performed By: #### C MP, CBC, MG, TROP, BNP #### [address] Basophils (Bld) [#/Vol] 0.1 10*3/uL Normal 0.0-0.2 [facility] Comment on above: Performed By: #### C MP, CBC, MG, TROP, BNP #### [address] Basophils/100 WBC (Bld) 0.8 % Normal . [facility] Comment on above: Performed By: #### C MP, CBC, MG, TROP, BNP #### [address] Eosinophils (Bld) [#/Vol] 0.4 10*3/uL Normal 0.0-0.45 [facility] Comment on above: Performed By: #### C MP, CBC, MG, TROP, BNP #### [address] Eosinophils/100 WBC (Bld) 2.8 % Normal . [facility] Comment on above: Performed By: #### C MP, CBC, MG, TROP, BNP #### [address] Erythrocyte distribution width (RBC) [Ratio] 16.0 % High 12.0-14.8 [facility] Comment on above: Performed By: #### C MP, CBC, MG, TROP, BNP #### [address] Hematocrit (Bld) [Volume fraction] 32.4 % Low 38.8-50.0 [facility] Comment on above: Performed By: #### C MP, CBC, MG, TROP, BNP #### [address] Hemoglobin (Bld) [Mass/Vol] 10.5 g/dL Low 13.0-17.0 [facility] Comment on above: Performed By: #### C MP, CBC, MG, TROP, BNP #### [address] Lymphocytes (Bld) [#/Vol] 1.6 10*3/uL Normal 1.00-4.8 [facility] Comment on above: Performed By: #### C MP, CBC, MG, TROP, BNP #### [address] Lymphocytes/100 WBC (Bld) 11.4 % Normal . [facility] Comment on above: Performed By: #### C MP, CBC, MG, TROP, BNP #### [address] MCH (RBC) [Entitic mass] 26.6 pg Low 27.5-35.2 [facility] Comment on above: Performed By: #### C MP, CBC, MG, TROP, BNP #### [address] MCV (RBC) [Entitic vol] 82.4 fL Low 83.5-101 [facility] Comment on above: Performed By: #### C MP, CBC, MG, TROP, BNP #### [address] Mean Corpuscular HGB Conc 32.3 g/dL Low 32.5-35.6 [facility] Comment on above: Performed By: #### C MP, CBC, MG, TROP, BNP #### [address] Monocytes (Bld) [#/Vol] 1.6 10*3/uL High 0.0-0.8 [facility] Comment on above: Performed By: #### C MP, CBC, MG, TROP, BNP #### [address] Monocytes/100 WBC (Bld) 11.7 % Normal . [facility] Comment on above: Performed By: #### C MP, CBC, MG, TROP, BNP #### [address] Neutrophils (Bld) [#/Vol] 10.2 10*3/uL High 1.8-7.7 [facility] Comment on above: Performed By: #### C MP, CBC, MG, TROP, BNP #### [address] Neutrophils/100 WBC (Bld) 73.3 % Normal . [facility] Comment on above: Performed By: #### C MP, CBC, MG, TROP, BNP #### [address] Nucleated RBC/100 WBC (Bld) [Ratio] 0.0 % Normal 0-0.5 [facility] Comment on above: Performed By: #### C MP, CBC, MG, TROP, BNP #### [address] Platelet Estimate Normal Normal Normal [facility] Comment on above: Performed By: #### C MP, CBC, MG, TROP, BNP #### [address] Platelet mean volume (Bld) [Entitic vol] 7.5 fL Normal 6.6-10.1 [facility] Comment on above: Performed By: #### C MP, CBC, MG, TROP, BNP #### [address] Platelet Morphology Normal Normal Normal [facility] Comment on above: Result Comment: PERF ORMED BY: [place] [address] PATHOLOGIST AUTO JOB ESTIMATOR JORDAN RODRIGUEZ M.D. Performed By: #### C MP, CBC, MG, TROP, BNP #### [address] Platelets (Bld) [#/Vol] 249 10*3/uL Normal 150-450 [facility] Comment on above: Performed By: #### C MP, CBC, MG, TROP, BNP #### [facility] [address] RBC (Bld) [#/Vol] 3.93 10*6/uL Normal 3.90-5.60 [facility] Comment on above: Performed By: #### C MP, CBC, MG, TROP, BNP #### [address] WBC (Bld) [#/Vol] 14.0 10*3/uL High 4.5-11.0 [facility] Comment on above: Performed By: #### C MP, CBC, MG, TROP, BNP #### [address] US renal BIon 08-19-2020 US renal BI [facility] Main [place] [address] [place] [address] Ultrasound Report Signed Patient: Rashard Lyman MR#: [id number] : 1960 Acct:[id number] Age/Sex: 60 / M ADM Date: 08/18/20 Loc: Room: [address] [place] [address] Type: ADM IN Attending Dr: Eugene Morel [...] Hector Mckinney M.D.08/19/2020 6:09 PM Dictation Location: [place] [address] Tech: Sandra Sierra Transcribed By: [facility] 08/19/201808 Dictated By: Hector Mckinney II, MD 08/19/201807 Signed By: 08/19/201808 [facility] Vitamin D 25 Hydroxy Totalon 08-19-2020 Vitamin D 25 Hydroxy Total 24.6 ng/mL Low 30-100 [facility] Comment on above: Result Comment: ADA MIN D STATUS 25(OH)VITAMIN D RANGE (ng/mL) Deficient <20 Insufficient 20 to <30 Sufficient 30 to 100 Reference: Aki MF,Oriana NC, Elli JONAS, et al. Evaluation,treatment, and prevention of vitamin D deficiency; an Endocrine Society clinical practice guideline. JCEM. 2010; 96(7):1911-30. PERFORMED BY: [place] [address] PATHOLOGIST AUTO JOB ESTIMATOR JORDAN RODRIGUEZ M.D. Performed By: #### C MP, CBC, MG, TROP, BNP #### [facility] [address] [place], [place] [id number] [facility] Activated partial thrombopla stin time (aPTT) in platelet poor plasma by coagulation aon 08-18-2020 aPTT Coag (PPP) [Time] 36.9 s 25.1-36.5 [facility] Albumin [Mass/volume] in Ser um or Plasmaon 08-18-2020 Albumin [Mass/Vol] 2.7 g/dL 3.2-5.5 [facility] B-Type Natriuretic Peptideon 08-18-2020 Natriuretic peptide B (Bld) [Mass/Vol] 48.0 pg/mL Normal 5-100 [facility] Comment on above: Result Comment: PERF ORMED BY: [address] [address] PATHOLOGIST AUTO JOB ESTIMATOR JORDAN RODRIGUEZ M.D. Performed By: #### C MP, CBC, MG, TROP, BNP #### [address] Bacterial blood cultureon Bacteria identified Cx Nom (Bld) NO GROWTH 5 DAYS [facility] Basophils Auto (Bld) [#/Vol] on 08-18-2020 Basophils (Bld) [#/Vol] 0.0 10*3/uL 0.0-0.2 [facility] Basophils/100 WBC Auto (Bld) on 08-18-2020 Basophils/100 WBC (Bld) 0.3 % [facility] Beta Hydroxybuterateon 08-18 Beta Hydroxybuterate 0.44 mmol/L High 0.02-0.27 [facility] Comment on above: Result Comment: PERF ORMED BY: [place] [address] PATHOLOGIST AUTO JOB ESTIMATOR JORDAN RODRIGUEZ M.D. Performed By: #### C MP, CBC, MG, TROP, BNP #### [address] Beta-hydroxybutyric acid faraz surementon 08-18-2020 Beta hydroxybutyrate [Mass/Vol] 0.44 mmol/L 0.02-0.27 [facility] BioFire Not Detectedon 08-18 BioFire Not Detected Not detected Normal Not Detecte [facility] Comment on above: Result Comment: This is a duplicate RP2.1 COVID (PCR) result to be used for statistical tracking purpose only. PERFORMED BY: [place] [address] PATHOLOGIST AUTO JOB ESTIMATOR JORDAN RODRIGUEZ M.D. Performed By: #### C MP, CBC, MG, TROP, BNP #### [address] Blood Cultureon 08-18-2020 Bacteria identified Cx Nom (Bld) NO GROWTH 5 DAYS PERFORMED BY: [place] [address] PATHOLOGIST AUTO JOB ESTIMATOR JORDAN RODRIGUEZ M.D. [facility] Comment on above: Performed By: #### C MP, CBC, MG, TROP, BNP #### [address] Bacteria identified Cx Nom (Bld) NO GROWTH 5 DAYS PERFORMED BY: [place] [address] PATHOLOGIST AUTO JOB ESTIMATOR JORDAN RODRIGUEZ M.D. [facility] Comment on above: Performed By: #### C MP, CBC, MG, TROP, BNP #### [facility] [address] Blood hemoglobin measurement (mass/volume)on 08-18-2020 Hemoglobin (Bld) [Mass/Vol] 11.8 g/dL 13.0-17.0 [facility] Blood leukocytes automated c ount (number/volume)on 08-18-2020 WBC (Bld) [#/Vol] 15.3 10*3/uL 4.5-11.0 [facility] COVID-19 Antigenon 1 COVID-19 Antigen [...] its performance Liat Disclaimer characteristic determined by [employer] and Liat Disclaimer validated at [facility]. This Liat Disclaimer test has not been FDA cleared [...] is terminated or revoked sooner. PERFORMED BY: [facility] [address] PATHOLOGIST AUTO JOB ESTIMATOR JORDAN RODRIGUEZ M.D. Normal [facility] Comment on above: Performed By: #### C OVID-19 LIAT, SOFIANEG #### [address] COVID-19 Detected/Not Detect edon 08-18-2020 SARS-CoV-2 (COVID-19) RNA SUDHA+non-probe Ql (Nph) Not detected Not Detecte [facility] Comment on above: This is a duplicate RP2.1 COVID (PCR) result to be used for statistical tracking purpose only. COVID-19 SOFIAon 08-18-2020 SARS-CoV+SARS-CoV-2 (COVID-19) Ag IA.rapid Ql (Resp) Negative Negative [facility] Comment on above: This is a duplicate Liat SARS Antigen (AGUSTINA) result to be used for statistical tracking purpose only. Coagulation Profileon 2020 aPTT Coag (Bld) [Time] 36.9 s High 25.1-36.5 [facility] Comment on above: Order Comment: REDRA W FOR SHORT DRAW AND HEMOLYSIS Result Comment: PERF ORMED BY: [place] [address] PATHOLOGIST AUTO JOB ESTIMATOR JORDAN RODRIGUEZ M.D. Performed By: #### P P #### [address] INR Coag (PPP) [Relative time] 1.0 {INR} Normal [facility] Comment on above: Order Comment: REDRA [...] 4.5 Performed By: #### P P #### [address] PT Coag (PPP) [Time] 11.7 s Normal 9.0-12.9 [facility] Comment on above: Order Comment: REDRA W FOR SHORT DRAW AND HEMOLYSIS Performed By: #### P P #### [address] Complete Blood Count Auto Di ffon 08-18-2020 Basophils (Bld) [#/Vol] 0.0 10*3/uL Normal 0.0-0.2 [facility] Comment on above: Result Comment: PERF ORMED BY: [place] [address] PATHOLOGIST AUTO JOB ESTIMATOR JORDAN RODRIGUEZ M.D. Performed By: #### C MP, CBC, MG, TROP, BNP #### [address] Basophils/100 WBC (Bld) 0.3 % Normal . [facility] Comment on above: Performed By: #### C MP, CBC, MG, TROP, BNP #### [address] Eosinophils (Bld) [#/Vol] 0.5 10*3/uL High 0.0-0.45 [facility] Comment on above: Performed By: #### C MP, CBC, MG, TROP, BNP #### [address] Eosinophils/100 WBC (Bld) 3.4 % Normal . [facility] Comment on above: Performed By: #### C MP, CBC, MG, TROP, BNP #### [address] Erythrocyte distribution width (RBC) [Ratio] 16.3 % High 12.0-14.8 [facility] Comment on above: Performed By: #### C MP, CBC, MG, TROP, BNP #### [address] Hematocrit (Bld) [Volume fraction] 36.1 % Low 38.8-50.0 [facility] Comment on above: Performed By: #### C MP, CBC, MG, TROP, BNP #### [address] Hemoglobin (Bld) [Mass/Vol] 11.8 g/dL Low 13.0-17.0 [facility] Comment on above: Performed By: #### C MP, CBC, MG, TROP, BNP #### [address] Lymphocytes (Bld) [#/Vol] 0.9 10*3/uL Low 1.00-4.8 [facility] Comment on above: Performed By: #### C MP, CBC, MG, TROP, BNP #### [address] Lymphocytes/100 WBC (Bld) 6.1 % Normal . [facility] Comment on above: Performed By: #### C MP, CBC, MG, TROP, BNP #### [address] MCH (RBC) [Entitic mass] 27.2 pg Low 27.5-35.2 [facility] Comment on above: Performed By: #### C MP, CBC, MG, TROP, BNP #### [address] MCV (RBC) [Entitic vol] 83.5 fL Normal 83.5-101 [facility] Comment on above: Performed By: #### C MP, CBC, MG, TROP, BNP #### [address] Mean Corpuscular HGB Conc 32.6 g/dL Normal 32.5-35.6 [facility] Comment on above: Performed By: #### C MP, CBC, MG, TROP, BNP #### [address] Monocytes (Bld) [#/Vol] 1.5 10*3/uL High 0.0-0.8 [facility] Comment on above: Performed By: #### C MP, CBC, MG, TROP, BNP #### [address] Monocytes/100 WBC (Bld) 10.1 % Normal . [facility] Comment on above: Performed By: #### C MP, CBC, MG, TROP, BNP #### [address] Neutrophils (Bld) [#/Vol] 12.3 10*3/uL High 1.8-7.7 [facility] Comment on above: Performed By: #### C MP, CBC, MG, TROP, BNP #### [address] Neutrophils/100 WBC (Bld) 80.1 % Normal . [facility] Comment on above: Performed By: #### C MP, CBC, MG, TROP, BNP #### [address] Nucleated RBC/100 WBC (Bld) [Ratio] 0.1 % Normal 0-0.5 [facility] Comment on above: Performed By: #### C MP, CBC, MG, TROP, BNP #### [address] Platelet mean volume (Bld) [Entitic vol] 7.3 fL Normal 6.6-10.1 [facility] Comment on above: Performed By: #### C MP, CBC, MG, TROP, BNP #### [place] [address] [place] Platelets (Bld) [#/Vol] 249 10*3/uL Normal 150-450 [facility] Comment on above: Performed By: #### C MP, CBC, MG, TROP, BNP #### [place] [address] [place] RBC (Bld) [#/Vol] 4.32 10*6/uL Normal 3.90-5.60 [facility] Comment on above: Performed By: #### C MP, CBC, MG, TROP, BNP #### [place] [address] [place] WBC (Bld) [#/Vol] 15.3 10*3/uL High 4.5-11.0 [facility] Comment on above: Performed By: #### C MP, CBC, MG, TROP, BNP #### [facility] [address] [place] [address] Comprehensive Metabolic Pane babatunde 08-18-2020 Albumin [Mass/Vol] 2.7 g/dL Low 3.2-5.5 [facility] Comment on above: Performed By: #### C MP, CBC, MG, TROP, BNP #### [address] Albumin/Globulin [Mass ratio] 0.6 {ratio} Normal [facility] Comment on above: Performed By: #### C MP, CBC, MG, TROP, BNP #### [address] ALP [Catalytic activity/Vol] 88 U/L Normal 32-92 [facility] Comment on above: Performed By: #### C MP, CBC, MG, TROP, BNP #### [address] ALT [Catalytic activity/Vol] 13 U/L Normal 10-60 [facility] Comment on above: Performed By: #### C MP, CBC, MG, TROP, BNP #### [address] AST [Catalytic activity/Vol] 16 U/L Normal 10-42 [facility] Comment on above: Performed By: #### C MP, CBC, MG, TROP, BNP #### [address] Bilirubin [Mass/Vol] 0.7 mg/dL Normal 0.3-1.2 [facility] Comment on above: Performed By: #### C MP, CBC, MG, TROP, BNP #### [address] Calcium [Mass/Vol] 8.9 mg/dL Normal 8.2-10.2 [facility] Comment on above: Performed By: #### C MP, CBC, MG, TROP, BNP #### [address] Chloride [Moles/Vol] 95 mmol/L Normal 95-114 [facility] Comment on above: Performed By: #### C MP, CBC, MG, TROP, BNP #### [address] CO2 [Moles/Vol] 22.6 mmol/L Normal 22.0-30.0 [facility] Comment on above: Performed By: #### C MP, CBC, MG, TROP, BNP #### [address] Creatinine [Mass/Vol] 3.04 mg/dL High 0.64-1.27 [facility] Comment on above: Performed By: #### C MP, CBC, MG, TROP, BNP #### [address] Creatinine Clr Calc Pharmacy 38.57 [facility] Comment on above: Performed By: #### C MP, CBC, MG, TROP, BNP #### [address] Estimated GFR ( Camilla 26 [facility] Comment on above: Result Comment: GFR estimated reference range: According to KDOQI guidelines, <60 ml/min/1.73m2 is sufficient to diagnose a patient with chronic kidney disease. Performed By: #### C MP, CBC, MG, TROP, BNP #### [address] Estimated GFR (Non- Am 21 [facility] Comment on above: Performed By: #### C MP, CBC, MG, TROP, BNP #### [address] Globulin (S) [Mass/Vol] 4.4 g/dL [facility] Comment on above: Performed By: #### C MP, CBC, MG, TROP, BNP #### [address] Glucose [Mass/Vol] 512 mg/dL Off scale high 70-100 [facility] Comment on above: Result Comment: Resu lts called at 1659 on 08/18/20 Random Glucose Reference Range is dependent on time and content of last meal. Glucose of more than 200 mg/dL in a nonstressed, ambulatory subject supports the diagnosis of Diabetes Mellitus. ADA recommended reference range Performed By: #### C MP, CBC, MG, TROP, BNP #### [address] Potassium [Moles/Vol] 4.2 mmol/L Normal 3.5-5.1 [facility] Comment on above: Performed By: #### C MP, CBC, MG, TROP, BNP #### [address] Protein [Mass/Vol] 7.1 g/dL Normal 6.1-7.9 [facility] Comment on above: Performed By: #### C MP, CBC, MG, TROP, BNP #### [address] Sodium [Moles/Vol] 128 mmol/L Low 136-146 [facility] Comment on above: Performed By: #### C MP, CBC, MG, TROP, BNP #### [address] Urea nitrogen [Mass/Vol] 27 mg/dL High 9-23 [facility] Comment on above: Performed By: #### C MP, CBC, MG, TROP, BNP #### [address] Creatinine and Glomerular fi ltration rate.predicted panel (S/P/Bld)on 08-18-2020 Creatinine [Mass/Vol] 3.04 mg/dL 0.64-1.27 [facility] ECG 12 lead ECGon 08-18-2020 ECG 12 lead ECG [facility] Main [place] [address] [place] [address] Electrocardiograph Report Signed Patient: Rashard Lyman MR#: [id number] : 1960 Acct:[id number] Age/Sex: 60 / M ADM Date: 08/18/20 Loc: 4 Room: 2D3598-3 Type: ADM IN Attending Dr: Eugene Morel [...] was found Confirmed by ADRIA PABON DO ([id number]) on 08/19/2020 10:02:40 AM Referred By: Electronically Signed By:ADRIA PABON DO Transcribed By: MUS Dictated By: Adria Pabon DO 08/18/20 1539 Signed By: 08/19/20 1002 [facility] Eosinophils Auto (Bld) [#/Vo l]on 08-18-2020 Eosinophils (Bld) [#/Vol] 0.5 10*3/uL 0.0-0.45 [facility] Eosinophils/100 WBC Auto (Bl d)on 08-18-2020 Eosinophils/100 WBC (Bld) 3.4 % [facility] Erythrocyte distribution wid th Auto (RBC) [Ratio]on 08-18-2020 Erythrocyte distribution width (RBC) [Ratio] 16.3 % 12.0-14.8 [facility] Estimated glomerular filtrat ion rate (GFR) non- Americanon 08-18-2020 GFR/1.73 sq M.predicted among non-blacks MDRD (S/P/Bld) [Vol rate/Area] 21 mL/Min [facility] Globulin Calc (S) [Mass/Vol] on 08-18-2020 Globulin (S) [Mass/Vol] 4.4 g/dL [facility] Glucose Glucometer (BldC) [M ass/Vol]on 08-18-2020 Glucose [Mass/Vol] 388 mg/dL [facility] Comment on above: Random Glucose Refer ence Range is dependent on time and content of last meal. Glucose of more than 200 mg/dL in a nonstressed, ambulatory subject supports the diagnosis of Diabetes Mellitus. Glucose Poct Glucometerson 0 08-18-2020 Glucose [Mass/Vol] 388 mg/dL Normal [facility] Comment on above: Result Comment: [facility] Glucose Reference Range is dependent on time and content of last meal. Glucose of more than 200 mg/dL in a nonstressed, ambulatory subject supports the diagnosis of Diabetes Mellitus. PERFORMED BY: [facility] [address] [place] [address] PATHOLOGIST AUTO JOB ESTIMATOR JORDAN RODRIGUEZ M.D. Performed By: #### C MP, CBC, MG, TROP, BNP #### [address] Hematocrit Auto (Bld) [Volum e fraction]on 08-18-2020 Hematocrit (Bld) [Volume fraction] 36.1 % 38.8-50.0 [facility] Laboratory - Chemistry and C hemistry - challengeon 08-18-2020 CO2 [Moles/Vol] 25.7 mmol/L 24.0-29.0 [facility] HCO3 (Bld) [Moles/Vol] 24.3 mmol/L 23.0-29.0 [facility] Magnesium [Mass/Vol] 2.2 mg/dL 1.6-2.6 [facility] Natriuretic peptide B (Bld) [Mass/Vol] 48.0 pg/mL 5-100 [facility] Laboratory - Coagulationon 0 08-18-2020 PT Coag (PPP) [Time] 11.7 s 9.0-12.9 [facility] Laboratory - Hematology and Cell countson 08-18-2020 Nucleated RBC/100 WBC (Bld) [Ratio] 0.1 % 0-0.5 [facility] Lymphocytes Auto (Bld) [#/Vo l]on 08-18-2020 Lymphocytes (Bld) [#/Vol] 0.9 10*3/uL 1.00-4.8 [facility] Lymphocytes/100 WBC Auto (Bl d)on 08-18-2020 Lymphocytes/100 WBC (Bld) 6.1 % [facility] MCH Auto (RBC) [Entitic mass ]on 08-18-2020 MCH (RBC) [Entitic mass] 27.2 pg 27.5-35.2 [facility] MCHC Auto (RBC) [Mass/Vol]on 08-18-2020 MCHC (RBC) [Mass/Vol] 32.6 g/dL 32.5-35.6 [facility] MCV Auto (RBC) [Entitic vol] on 08-18-2020 MCV (RBC) [Entitic vol] 83.5 fL 83.5-101 [facility] Magnesiumon 08-18-2020 Magnesium [Mass/Vol] 2.2 mg/dL Normal 1.6-2.6 [facility] Comment on above: Result Comment: PERF ORMED BY: [place] [address] PATHOLOGIST AUTO JOB ESTIMATOR JORDAN RODRIGUEZ M.D. Performed By: #### C MP, CBC, MG, TROP, BNP #### [address] Monocytes Auto (Bld) [#/Vol] on 08-18-2020 Monocytes (Bld) [#/Vol] 1.5 10*3/uL 0.0-0.8 [facility] Monocytes/100 WBC Auto (Bld) on 08-18-2020 Monocytes/100 WBC (Bld) 10.1 % [facility] Neutrophils Auto (Bld) [#/Vo l]on 08-18-2020 Neutrophils (Bld) [#/Vol] 12.3 10*3/uL 1.8-7.7 [facility] Neutrophils/100 WBC Auto (Bl d)on 08-18-2020 Neutrophils/100 WBC (Bld) 80.1 % [facility] No Panel Informationon 08-18 Respiratory Panel (PCR) [facility] Blood Gas Critical Value See comment [facility] Comment on above: Critical Value fonseca d on: 08/18/2020 at 17:44 Blood Gas Sample Site Venous [facility] FiO2 21 % [facility] Venous Blood Base Excess -1.5 mmol/L -3.0-3.0 [facility] Venous Blood Oxygen Content 4.1 mmol/L 6.6-9.7 [facility] Venous Blood Oxygen Saturation 53.3 % 73.0-76.0 [facility] Venous Blood Partial Pressure CO2 45.2 mm[Hg] 38.0-50.0 [facility] Venous Blood Partial Pressure O2 24.4 mm[Hg] 35.0-45.0 [facility] Venous Blood pH 7.35 7.32-7.43 [facility] Estimated GFR () 26 mL/Min [facility] Comment on above: GFR estimated refere nce range: According to KDOQI guidelines, <60 ml/min/1.73m2 is sufficient to diagnose a patient with chronic kidney disease. Pharmacy Creatinine Clearance (Chem 38.57 [facility] Platelet mean volume Auto (B ld) [Entitic vol]on 08-18-2020 Platelet mean volume (Bld) [Entitic vol] 7.3 fL 6.6-10.1 [facility] Platelet poor plasma interna tional normalized ratio (INR) by coagulation assay (relaton 08-18-2020 INR Coag (PPP) [Relative time] 1.0 {INR} [facility] Comment on above: INR Therapeutic Rang [...] 08-18-2020 Platelets (Bld) [#/Vol] 249 10*3/uL 150-450 [facility] Protein [Mass/volume] in Ser um or Plasmaon 08-18-2020 Protein [Mass/Vol] 7.1 g/dL 6.1-7.9 [facility] RBC Auto (Bld) [#/Vol]on RBC (Bld) [#/Vol] 4.32 10*6/uL 3.90-5.60 [facility] Respiratory (Upper) Panel, P CRon 08-18-2020 Respiratory (Upper) Panel, PCR Adenovirus Not detected Bordetella parapertussis Not detected Chlamydia pneumoniae Not detected Coronavirus 229E Not detected Coronavirus HKU1 Not detected Coronavirus NL63 Not detected Coronavirus OC43 Not detected COVID19 Blank Space -- COVID19 Disclaimer This test was developed and its performance COVID19 Disclaimer characteristics determined by [employer], COVID19 Disclaimer Disease-2019 during the Public Health [...] sooner. [employer]. and validated at [address]. This has not been FDA cleared [...] COVID-19 Detected/Not Detected Not detected PERFORMED BY: [facility] [address] [place] [address] PATHOLOGIST AUTO JOB ESTIMATOR JORDAN RODRIGUEZ M.D. [facility] Comment on above: Performed By: #### C MP, CBC, MG, TROP, BNP #### [facility] [address] Serum or plasma alanine gomez otransferase measurement without P-5'-P (enzymatic activion 08-18-2020 ALT No additional P-5'-P [Catalytic activity/Vol] 13 U/L 10-60 [facility] Serum or plasma albumin/glob ulin mass ratioon 08-18-2020 Albumin/Globulin [Mass ratio] 0.6 {ratio} [facility] Serum or plasma alkaline kayode sphatase measurement (enzymatic activity/volume)on 08-18-2020 ALP [Catalytic activity/Vol] 88 U/L 32-92 [facility] Serum or plasma aspartate am inotransferase measurement (enzymatic activity/volume)on 08-18-2020 AST [Catalytic activity/Vol] 16 U/L 10-42 [facility] Serum or plasma calcium joel urement (mass/volume)on 08-18-2020 Calcium [Mass/Vol] 8.9 mg/dL 8.2-10.2 [facility] Serum or plasma cardiac trop onin I measurement (mass/volume)on 08-18-2020 Troponin I.cardiac [Mass/Vol] ng/mL 0-0.02 [facility] Comment on above: HÉCTOR UT Cut off value > or equal to 0.03 ng/mL in conjunction with clinical conditions of myocardial infarction.(www.escardio.org/guidelines) Serum or plasma chloride faraz surement (moles/volume)on 08-18-2020 Chloride [Moles/Vol] 95 mmol/L 95-114 [facility] Serum or plasma glucose joel urement (mass/volume)on 08-18-2020 Glucose [Mass/Vol] 512 mg/dL 70-100 [facility] Comment on above: Results calledat 165 9 on 08/18/20 ADA recommended reference rangeRandom Glucose Reference Range is dependent on time and content of last meal. Glucose of more than 200 mg/dL in a nonstressed, ambulatory subject supports the diagnosis of Diabetes Mellitus. Serum or plasma potassium me asurement (moles/volume)on 08-18-2020 Potassium [Moles/Vol] 4.2 mmol/L 3.5-5.1 [facility] Serum or plasma sodium measu rement (moles/volume)on 08-18-2020 Sodium [Moles/Vol] 128 mmol/L 136-146 [facility] Serum or plasma total biliru bin measurement (mass/volume)on 08-18-2020 Bilirubin [Mass/Vol] 0.7 mg/dL 0.3-1.2 [facility] Serum or plasma total carbon dioxide measurement (moles/volume)on 08-18-2020 CO2 [Moles/Vol] 22.6 mmol/L 22.0-30.0 [facility] Serum or plasma urea nitroge n measurement (mass/volume)on 08-18-2020 Urea nitrogen [Mass/Vol] 27 mg/dL 01-19 [facility] Liat Ag Negativeon 08-19-19 21 Liat Ag Negative Negative Normal Negative [facility] Comment on above: Result Comment: This is a duplicate Liat SARS Antigen (AGUSTINA) result to be used for statistical tracking purpose only. PERFORMED BY: [place] [address] PATHOLOGIST AUTO JOB ESTIMATOR JORDAN RODRIGUEZ M.D. Performed By: #### C OVID-19 LIAT, SOFIANEG #### [address] Troponin I(TnI)on 08-18-2020 Troponin I.cardiac [Mass/Vol] ng/mL Normal 0-0.02 [facility] Comment on above: Result Comment: HÉCTOR UT Cut off value > or equal to 0.03 ng/mL in conjunction with clinical conditions of myocardial infarction. (www.escardio.org/guidelines) PERFORMED BY: [place] [address] PATHOLOGIST AUTO JOB ESTIMATOR JORDAN RODRIGUEZ M.D. Performed By: #### C MP, CBC, MG, TROP, BNP #### [facility] [address] [place] [id number] [facility] Venous Blood Gason CO2 [Moles/Vol] 25.7 mmol/L Normal 24.0-29.0 [facility] Comment on above: Performed By: #### V BG #### Point of Care testing , HCO3 (Bld) [Moles/Vol] 24.3 mmol/L Normal 23.0-29.0 [facility] Comment on above: Performed By: #### V BG #### Point of Care testing , Respiratory Critical Normal [facility] Comment on above: Result Comment: Crit ical Value called on: 08/18/2020 at 17:44 PERFORMED BY: [place] [address] PATHOLOGIST AUTO JOB ESTIMATOR JORDAN RODRIGUEZ M.D. Performed By: #### V BG #### Point of Care testing , VBG Base Excess -1.5 mmol/L Normal -3.0-3.0 [facility] Comment on above: Performed By: #### V BG #### Point of Care testing , VBG Draw Site Venous Normal [facility] Comment on above: Performed By: #### V BG #### Point of Care testing , VBG Frac Inspired O2 21 % Normal [facility] Comment on above: Performed By: #### V BG #### Point of Care testing , VBG O2 Content 4.1 mmol/L Low 6.6-9.7 [facility] Comment on above: Performed By: #### V BG #### Point of Care testing , VBG Oxygen Saturation 53.3 % Off scale low 73.0-76.0 [facility] Comment on above: Performed By: #### V BG #### Point of Care testing , VBG PCO2 45.2 mm[Hg] Normal 38.0-50.0 [facility] Comment on above: Performed By: #### V BG #### Point of Care testing , VBG PH Venous PH 7.35 Normal 7.32-7.43 [facility] Comment on above: Performed By: #### V BG #### Point of Care testing , VBG PO2 24.4 mm[Hg] Low 35.0-45.0 [facility] Comment on above: Performed By: #### V BG #### Point of Care testing , XR chest 1V portableon 08-18 XR chest 1V portable [facility] [place] [address] XRay Report Signed Patient: Rashard Lyman MR#: [id number] : 1960 Acct:[id number] Age/Sex: 60 / M ADM Date: 08/18/20 Loc: ER Room: Type: [facility] ER Attending Dr: Ordering Provider: Mariana [...] Chitra Brantley M.D.08/18/2020 4:24 PM Dictation Location: [place] [address] Transcribed By: [facility] 08/18/20 162 Dictated By: Chitra Brantley MD 08/18/20 162 Signed By: 08/18/20 1624 Normal [facility] CBC COMPLETE BLOOD COUNTon 0 07-22-2020 Erythrocyte distribution width (RBC) [Ratio] 15.0 % Normal 11.5-15.0 [facility] Comment on above: Order Comment: No: D o not add to previous draw Performed By: #### 8 [id number] #### [facility] [address] [place] [address], [facility] Hematocrit (Bld) [Volume fraction] 32.4 % Low 39.0-50.0 [facility] Comment on above: Order Comment: No: D o not add to previous draw Performed By: #### 8 [id number] #### [facility] [address] [place] [address], [facility] Hemoglobin (Bld) [Mass/Vol] 9.5 g/dL Low 13.0-17.0 [facility] Comment on above: Order Comment: No: D o not add to previous draw Performed By: #### 8 [id number] #### [facility] [address] [place] [address], [facility] MCH (RBC) [Entitic mass] 26.7 pg Low 27.0-33.0 [facility] Comment on above: Order Comment: No: D o not add to previous draw Performed By: #### 8 [id number] #### [facility] [address] [place] [address], [facility] MCHC (RBC) [Mass/Vol] 29.3 g/dL Low 32.0-35.0 [facility] Comment on above: Order Comment: No: D o not add to previous draw Performed By: #### 8 [id number] #### [facility] [address] [place] [address], [facility] MCV (RBC) [Entitic vol] 91.0 fL Normal 82.0-98.0 [facility] Comment on above: Order Comment: No: D o not add to previous draw Performed By: #### 8 [id number] #### [facility] [address] [place] [address], [facility] Nucleated RBC/100 WBC (Bld) [Ratio] 0 % Normal 0-0 [facility] Comment on above: Order Comment: No: D o not add to previous draw Performed By: #### 8 [id number] #### [facility] [address] [place] [address], [facility] PLAT CNT 276 10*3/uL Normal 150-400 [facility] Comment on above: Order Comment: No: D o not add to previous draw Performed By: #### 8 [id number] #### [facility] [address] [place] [address], [facility] RBC (Bld) [#/Vol] 3.56 10*6/uL Low 4.20-5.70 [facility] Comment on above: Order Comment: No: D o not add to previous draw Performed By: #### 8 [id number] #### [facility] [address] [place] [address], [place] WBC (Bld) [#/Vol] 8.61 10*3/uL Normal 4.00-10.60 [facility] Comment on above: Order Comment: No: D o not add to previous draw Performed By: #### 8 [id number] #### [facility] [address] [place] [address], [facility] COMP METABOLIC PANELon 07-22 Albumin [Mass/Vol] 2.7 g/dL Low 3.5-5.7 [facility] Comment on above: Order Comment: No: D o not add to previous draw Performed By: #### 8 [id number] #### [facility] [address] [place] [address], [place] ALKALINE PHOSPH 70 IU/L Normal 34-104 [facility] Comment on above: Order Comment: No: D o not add to previous draw Performed By: #### 8 [id number] #### [facility] [address] [place] [address], [place] ALT [Catalytic activity/Vol] 4 U/L Low 7-52 [facility] Comment on above: Order Comment: No: D o not add to previous draw Performed By: #### 8 [id number] #### [facility] [address] [place] [address], [place] AST [Catalytic activity/Vol] 15 U/L Normal 13-39 [facility] Comment on above: Order Comment: No: D o not add to previous draw Performed By: #### 8 [id number] #### [facility] [address] [place] [address], [place] Bilirubin [Mass/Vol] 0.2 mg/dL Low 0.3-1.0 [facility] Comment on above: Order Comment: No: D o not add to previous draw Performed By: #### 8 [id number] #### [facility] [address] [place] [address], [place] Calcium [Mass/Vol] 8.9 mg/dL Normal 8.6-10.3 [facility] Comment on above: Order Comment: No: D o not add to previous draw Performed By: #### 8 [id number] #### [facility] [address] [place] [address], [place] Chloride [Moles/Vol] 109 mmol/L High 98-107 [facility] Comment on above: Order Comment: No: D o not add to previous draw Performed By: #### 8 [id number] #### [facility] [address] [place] [address], [place] CO2 [Moles/Vol] 24 mmol/L Normal 21-31 [facility] Comment on above: Order Comment: No: D o not add to previous draw Performed By: #### 8 [id number] #### [facility] [address] [place] [address], [place] Creatinine [Mass/Vol] 3.39 mg/dL High 0.70-1.30 [facility] Comment on above: Order Comment: No: D o not add to previous draw Performed By: #### 8 [id number] #### [facility] [address] [place] [address], [place] eGFR- 23 ml/min/1.73sq m Abnormal >60 [facility] Comment on above: Order Comment: No: D o not add to previous draw Performed By: #### 8 [id number] #### [facility] [address] [place] [address], [place] eGFR- non- 19 ml/min/1.73sq m Abnormal >60 [facility] Comment on above: Order Comment: No: D o not add to previous draw Performed By: #### 8 [id number] #### [facility] [address] [place] [address], [place] Glucose [Mass/Vol] 90 mg/dL Normal 70-100 [facility] Comment on above: Order Comment: No: D o not add to previous draw Performed By: #### 8 [id number] #### [facility] [address] [place] [address], [place] Potassium [Moles/Vol] 4.4 mmol/L Normal 3.5-5.1 [facility] Comment on above: Order Comment: No: D o not add to previous draw Performed By: #### 8 [id number] #### [facility] [address] [place] [address], [place] Protein [Mass/Vol] 5.9 g/dL Low 6.0-8.3 [facility] Comment on above: Order Comment: No: D o not add to previous draw Performed By: #### 8 [id number] #### [facility] [address] [place] [address], [place] Sodium [Moles/Vol] 140 mmol/L Normal 136-145 [facility] Comment on above: Order Comment: No: D o not add to previous draw Performed By: #### 8 [id number] #### [facility] [address] [place] [address], [place] Urea nitrogen [Mass/Vol] 35 mg/dL High 7-25 [facility] Comment on above: Order Comment: No: D o not add to previous draw Performed By: #### 8 [id number] #### [facility] [address] [place] [address], [place] POC GLUCOSE LABon 07-22-2020 Glucose [Mass/Vol] 192 mg/dL High 70-100 [facility] Comment on above: Performed By: #### 8 [id number] #### [facility] [address] [place] [address], [place] Glucose [Mass/Vol] 95 mg/dL Normal 70-100 [facility] Comment on above: Performed By: #### 5 7307, [address] #### [facility] [address] [place] [address], [place] Glucose [Mass/Vol] 123 mg/dL High 70-100 [facility] Comment on above: Performed By: #### 8 [id number] ####[facility] [place] [address], [place] ARTERIAL BLOOD GAS WITH ICAo n 07-21-2020 BASE EXCESS -2 mmol/L Normal -2-3 [facility] Comment on above: Performed By: #### 8 [id number] #### [facility] [address] [place] [address], [place] [employer] FOCUS Normal [facility] Comment on above: Performed By: #### 8 [id number] #### [facility] [address] [place] [address], [place] HCO3 (Bld) [Moles/Vol] 24 mmol/L Normal 21-28 [facility] Comment on above: Performed By: #### 8 [id number] #### [facility] [address] [place] [address], [place] IONIZED CALCIUM 1.25 mmol/L Normal 1.13-1.32 [facility] Comment on above: Performed By: #### 8 [id number] #### [facility] [address] [place] [address], [place] LPM 4.0 LPM Normal [facility] Comment on above: Performed By: #### 8 [id number] #### [facility] [address] [place] [address], [facility] MODALITY BIPAP Normal [facility] Comment on above: Performed By: #### 8 [id number] #### [facility] [address] [facility] [place] [address], [facility] Oxygen (Bld) [Partial pressure] 91 mm[Hg] Normal 83-108 [facility] Comment on above: Performed By: #### 8 [id number] #### [facility] [address] [facility]. [place], [place] [id number] [place] [address] Oxygen saturation in Blood 95.9 % Normal 94.0-97.0 [facility] Comment on above: Performed By: #### 8 [id number] #### [facility] [address] [facility] [place] [address], [facility] PCO2 47 mmHg High 35-45 [facility] Comment on above: Performed By: #### 8 [id number] #### [facility] [address] [facility]. [address] PEEP 8.0 CMH20 Normal [facility] Comment on above: Performed By: #### 8 [id number] #### [facility] [address] [facility] [place] [address], [facility] pH (Bld) 7.32 [pH] Low 7.35-7.45 [facility] Comment on above: Performed By: #### 8 [id number] #### [facility] [address] [place] [address], [facility] PRESSURE SUPPORT 16 Normal [facility] Comment on above: Performed By: #### 8 [id number] #### [facility] [address] [place] [address], [facility] BASE EXCESS -3 mmol/L Low -2-3 [facility] Comment on above: Performed By: #### 3 0318 #### [facility] [address] [facility] [place] [address], [facility] DELIVERY SYSTEMS NASAL CANNULA Normal [facility] Comment on above: Performed By: #### 3 0318 #### [facility] [address] [place] [address], [facility] HCO3 (Bld) [Moles/Vol] 25 mmol/L Normal 21-28 [facility] Comment on above: Performed By: #### 3 0318 #### [facility] [address] [place] [address], [facility] IONIZED CALCIUM 1.26 mmol/L Normal 1.13-1.32 [facility] Comment on above: Performed By: #### 3 0318 #### [facility] [address] [place] [address], [facility] LPM 2.0 LPM Normal [facility] Comment on above: Performed By: #### 3 0318 #### [facility] [address] [place] [address], [facility] Oxygen (Bld) [Partial pressure] 92 mm[Hg] Normal 83-108 [facility] Comment on above: Performed By: #### 3 0318 #### [facility] [address] [place] [address], [facility] Oxygen saturation in Blood 95.7 % Normal 94.0-97.0 [facility] Comment on above: Performed By: #### 3 0318 #### [facility] [address] [place] [address], [facility] PCO2 54 mmHg High 35-45 [facility] Comment on above: Performed By: #### 3 0318 #### [facility] [address] [place] [address], [place] pH (Bld) 7.27 [pH] Low 7.35-7.45 [facility] Comment on above: Performed By: #### 3 0318 #### [facility] [address] [place] [address], [facility] BASIC METABOLIC PANELon 03-2 Calcium [Mass/Vol] 9.0 mg/dL Normal 8.6-10.3 [facility] Comment on above: Order Comment: No: D o not add to previous drawPt not in room rn will return when back. Performed By: #### 3 1943 #### [facility] [address] [place] [address], [facility] Chloride [Moles/Vol] 106 mmol/L Normal 98-107 [facility] Comment on above: Order Comment: No: D o not add to previous drawPt not in room rn will return when back. Performed By: #### 3 1943 #### [facility] [address] [place] [address], [facility] CO2 [Moles/Vol] 25 mmol/L Normal 21-31 [facility] Comment on above: Order Comment: No: D o not add to previous drawPt not in room rn will return when back. Performed By: #### 3 1943 #### [facility] [address] [place] [address], [facility] Creatinine [Mass/Vol] 3.75 mg/dL High 0.70-1.30 [facility] Comment on above: Order Comment: No: D o not add to previous drawPt not in room rn will return when back. Performed By: #### 3 1943 #### [facility] [address] [place] [address], [facility] eGFR- 20 ml/min/1.73sq m Abnormal >60 [facility] Comment on above: Order Comment: No: D o not add to previous drawPt not in room rn will return when back. Performed By: #### 3 1943 #### [facility] [address] [place] [id number], [facility] eGFR- non- 17 ml/min/1.73sq m Abnormal >60 [facility] Comment on above: Order Comment: No: D o not add to previous drawPt not in room rn will return when back. Performed By: #### 3 1943 #### [facility] [address] [place] [address], [place] Glucose [Mass/Vol] 132 mg/dL High 70-100 [facility] Comment on above: Order Comment: No: D o not add to previous drawPt not in room rn will return when back. Performed By: #### 3 1943 #### [facility] [address] [place] [address], [facility] Potassium [Moles/Vol] 5.0 mmol/L Normal 3.5-5.1 [facility] Comment on above: Order Comment: No: D o not add to previous drawPt not in room rn will return when back. Performed By: #### 3 1943 #### [facility] [address] [place] [address], [place] Sodium [Moles/Vol] 138 mmol/L Normal 136-145 [facility] Comment on above: Order Comment: No: D o not add to previous drawPt not in room rn will return when back. Performed By: #### 3 1943 #### [facility] [address] [place] [address], [facility] Urea nitrogen [Mass/Vol] 37 mg/dL High 7-25 [facility] Comment on above: Order Comment: No: D o not add to previous drawPt not in room rn will return when back. Performed By: #### 3 1943 #### [facility] [address] [place] [address], [facility] CBC COMPLETE BLOOD COUNTon 0 07-21-2020 Erythrocyte distribution width (RBC) [Ratio] 15.0 % Normal 11.5-15.0 [facility] Comment on above: Order Comment: No: D o not add to previous drawPt not in room rn will return when back. Performed By: #### 8 [id number] #### [facility] [address] [place] [address], [facility] Hematocrit (Bld) [Volume fraction] 33.9 % Low 39.0-50.0 [facility] Comment on above: Order Comment: No: D o not add to previous drawPt not in room rn will return when back. Performed By: #### 8 [id number] #### [facility] [address] [place] [address], [facility] Hemoglobin (Bld) [Mass/Vol] 9.9 g/dL Low 13.0-17.0 [facility] Comment on above: Order Comment: No: D o not add to previous drawPt not in room rn will return when back. Performed By: #### 8 5499 #### [facility] [address] [facility] [place] [address], [facility] MCH (RBC) [Entitic mass] 26.9 pg Low 27.0-33.0 [facility] Comment on above: Order Comment: No: D o not add to previous drawPt not in room rn will return when back. Performed By: #### 8 [id number] #### [facility] [address] [facility] MCHC (RBC) [Mass/Vol] 29.2 g/dL Low 32.0-35.0 [facility] Comment on above: Order Comment: No: D o not add to previous drawPt not in room rn will return when back. Performed By: #### 8 5499 #### [facility] [address] [facility] [address], [facility] MCV (RBC) [Entitic vol] 92.1 fL Normal 82.0-98.0 [facility] Comment on above: Order Comment: No: D o not add to previous drawPt not in room rn will return when back. Performed By: #### 8 5499 #### [facility] [address] [facility] [place] [place] [address], [facility] Nucleated RBC/100 WBC (Bld) [Ratio] 0 % Normal 0-0 [facility] Comment on above: Order Comment: No: D o not add to previous drawPt not in room rn will return when back. Performed By: #### 8 5499 #### [address] PLAT CNT 288 10*3/uL Normal 150-400 [facility] Comment on above: Order Comment: No: D o not add to previous drawPt not in room rn will return when back. Performed By: #### 8 5499 #### [address] RBC (Bld) [#/Vol] 3.68 10*6/uL Low 4.20-5.70 [facility] Comment on above: Order Comment: No: D o not add to previous drawPt not in room rn will return when back. Performed By: #### 8 5499 #### [address] WBC (Bld) [#/Vol] 9.51 10*3/uL Normal 4.00-10.60 [facility] Comment on above: Order Comment: No: D o not add to previous drawPt not in room rn will return when back. Performed By: #### 8 5499 #### [address] CHEST WO CONTRASTon 07-21 CT CHEST WO CONTRAST [facility] Department of Radiology [address] [place] [id number] Patient Name: RASHARD LYMAN : 1960 Sex: M Age: Race: White Pt. Location: [address] [place] [address] Patient Status: I Ordered Date: 07/21/2020 6:00:00 [...] pneumonia. Electronically signed: Manuel Saldaña. Transcribed by: [id number], User Resident: Electronically Signed by: MANUEL SALDAÑA @ 07/21/2020 08:38 AM Normal [facility] Comment on above: Order Comment: Left Peural Effusion POC GLUCOSE LABon 07-21-2020 Glucose [Mass/Vol] 134 mg/dL High 70-100 [facility] Comment on above: Performed By: #### 5 0103 #### [facility] [address] [place] [address], [place] Glucose [Mass/Vol] 88 mg/dL Normal 70-100 [facility] Comment on above: Performed By: #### 8 5499 #### [facility] [address] [place] [address], [place] Glucose [Mass/Vol] 110 mg/dL High 70-100 [facility] Comment on above: Performed By: #### 8 5499 #### [facility] [address] [place] [address], [place] Glucose [Mass/Vol] 118 mg/dL High 70-100 [facility] Comment on above: Performed By: #### 5 7307, 524[address] #### [facility] [address] [place] [address], [place] Glucose [Mass/Vol] 137 mg/dL High 70-100 [facility] Comment on above: Performed By: #### 5 7307, 56[address] #### [facility] [address] [place] [address], [place] BASIC METABOLIC PANELon 06-28 Calcium [Mass/Vol] 8.4 mg/dL Low 8.6-10.3 [facility] Comment on above: Order Comment: No: D o not add to previous draw Performed By: #### 8 5499 #### [facility] [address] [place] [address], [place] Chloride [Moles/Vol] 107 mmol/L Normal 98-107 [facility] Comment on above: Order Comment: No: D o not add to previous draw Performed By: #### 8 5499 #### [facility] [address] [place] [address], [place] CO2 [Moles/Vol] 23 mmol/L Normal 21-31 [facility] Comment on above: Order Comment: No: D o not add to previous draw Performed By: #### 8 5499 #### [facility] [address] [place] [address], [place] Creatinine [Mass/Vol] 3.95 mg/dL High 0.70-1.30 [facility] Comment on above: Order Comment: No: D o not add to previous draw Performed By: #### 8 5499 #### [facility] [address] [place] [address], [place] eGFR- 19 ml/min/1.73sq m Abnormal >60 [facility] Comment on above: Order Comment: No: D o not add to previous draw Performed By: #### 8 5499 #### [facility] [address] [place] [address], [place] eGFR- non- 16 ml/min/1.73sq m Abnormal >60 [facility] Comment on above: Order Comment: No: D o not add to previous draw Performed By: #### 8 5499 #### [facility] [address] [place] [address], [place] Glucose [Mass/Vol] 110 mg/dL High 70-100 [facility] Comment on above: Order Comment: No: D o not add to previous draw Performed By: #### 8 5499 #### [facility] [address] [place] [address], [place] Potassium [Moles/Vol] 4.9 mmol/L Normal 3.5-5.1 [facility] Comment on above: Order Comment: No: D o not add to previous draw Performed By: #### 8 5499 #### [facility] [address] Sodium [Moles/Vol] 137 mmol/L Normal 136-145 [facility] Comment on above: Order Comment: No: D o not add to previous draw Performed By: #### 8 5499 #### [facility] [address] [place] [address], [facility] Urea nitrogen [Mass/Vol] 37 mg/dL High 7-25 [facility] Comment on above: Order Comment: No: D o not add to previous draw Performed By: #### 8 5499 #### [facility] [address] [facility] [address], [facility] CBC W/DIFFon 07-20-2020 ABS IMM GRANS 0.1 10*3/uL Normal 0.0-0.2 [facility] Comment on above: Order Comment: No: D o not add to previous draw Performed By: #### 8 5499 #### [facility] [address] [facility] [place] [address], [facility] ABS NEUTROPHILS 5.9 10*3/uL Normal 1.6-7.6 [facility] Comment on above: Order Comment: No: D o not add to previous draw Performed By: #### 8 5499 #### [facility] [address] [facility] [place] [address], [facility] Basophils (Bld) [#/Vol] 0.1 10*3/uL Normal 0.0-0.2 [facility] Comment on above: Order Comment: No: D o not add to previous draw Performed By: #### 8 5499 #### [facility] [address] [facility] [place] [address], [facility] Basophils/100 WBC (Bld) 1.0 % Normal 0.0-1.0 [facility] Comment on above: Order Comment: No: D o not add to previous draw Performed By: #### 8 5499 #### [facility] [address] [place] [address], [place] Eosinophils (Bld) [#/Vol] 0.4 10*3/uL Normal 0.0-0.5 [facility] Comment on above: Order Comment: No: D o not add to previous draw Performed By: #### 8 5499 #### [facility] [address] [place] [address], [facility] Eosinophils/100 WBC (Bld) 5.1 % Normal 0.0-6.0 [facility] Comment on above: Order Comment: No: D o not add to previous draw Performed By: #### 8 5499 #### [facility] [address] [place] [address], [facility] Erythrocyte distribution width (RBC) [Ratio] 15.4 % High 11.5-15.0 [facility] Comment on above: Order Comment: No: D o not add to previous draw Performed By: #### 8 5499 #### [facility] [address] [place] [address], [facility] Hematocrit (Bld) [Volume fraction] 35.7 % Low 39.0-50.0 [facility] Comment on above: Order Comment: No: D o not add to previous draw Performed By: #### 8 5499 #### [facility] [address] [place] [address], [facility] Hemoglobin (Bld) [Mass/Vol] 10.3 g/dL Low 13.0-17.0 [facility] Comment on above: Order Comment: No: D o not add to previous draw Performed By: #### 8 5499 #### [facility] [address] [place] [id number], [facility] IMM PLATELET FRAC 0.4 % Low 0.8-6.3 [facility] Comment on above: Order Comment: No: D o not add to previous draw Performed By: #### 8 5499 #### [facility] [address] [place] [address], [facility] IMMATURE GRANS 1.1 % High 0.0-1.0 [facility] Comment on above: Order Comment: No: D o not add to previous draw Performed By: #### 8 5499 #### [facility] [address] [facility] [place] [address], [facility] Lymphocytes (Bld) [#/Vol] 0.8 10*3/uL Low 1.2-4.0 [facility] Comment on above: Order Comment: No: D o not add to previous draw Performed By: #### 8 5499 #### [facility] [address] [facility] [place] [address], [facility] Lymphocytes/100 WBC (Bld) 9.3 % Low 20.0-45.0 [facility] Comment on above: Order Comment: No: D o not add to previous draw Performed By: #### 8 5499 #### [facility] [address] [facility] [place] [address], [facility] MCH (RBC) [Entitic mass] 27.4 pg Normal 27.0-33.0 [facility] Comment on above: Order Comment: No: D o not add to previous draw Performed By: #### 8 5499 #### [facility] [address] [facility] [address], [facility] MCHC (RBC) [Mass/Vol] 28.9 g/dL Low 32.0-35.0 [facility] Comment on above: Order Comment: No: D o not add to previous draw Performed By: #### 8 5499 #### [facility] [address] [facility] [place] [id number], [facility] MCV (RBC) [Entitic vol] 94.9 fL Normal 82.0-98.0 [facility] Comment on above: Order Comment: No: D o not add to previous draw Performed By: #### 8 5499 #### [facility] [address] [place] [address], [facility] Monocytes (Bld) [#/Vol] 1.1 10*3/uL High 0.1-1.0 [facility] Comment on above: Order Comment: No: D o not add to previous draw Performed By: #### 8 5499 #### [facility] [address] [place] [address], [place] MONOS 12.9 % High 5.0-12.0 [facility] Comment on above: Order Comment: No: D o not add to previous draw Performed By: #### 8 5499 #### [facility] [address] [place] [address], [place] Neutrophils/100 WBC (Bld) 70.6 % Normal 40.0-72.0 [facility] Comment on above: Order Comment: No: D o not add to previous draw Performed By: #### 8 5499 #### [facility] [address] [place] [address], [place] Nucleated RBC/100 WBC (Bld) [Ratio] 0 % Normal 0-0 [facility] Comment on above: Order Comment: No: D o not add to previous draw Performed By: #### 8 5499 #### [facility] [address] [place] [address], [place] PLAT ESTIMATE Normal Normal [facility] Comment on above: Order Comment: No: D o not add to previous draw Result Comment: EDTA smear shows platelet clumping, see platelet estimate Performed By: #### 8 5499 #### [facility] [address] [place] [address], [place] RBC (Bld) [#/Vol] 3.76 10*6/uL Low 4.20-5.70 [facility] Comment on above: Order Comment: No: D o not add to previous draw Performed By: #### 8 5499 #### [facility] [address] [place] [address], [place] WBC (Bld) [#/Vol] 8.30 10*3/uL Normal 4.00-10.60 [facility] Comment on above: Order Comment: No: D o not add to previous draw Performed By: #### 8 5499 #### [address] [address], [facility] POC GLUCOSE LABon 07-20-2020 Glucose [Mass/Vol] 110 mg/dL High 70-100 [facility] Comment on above: Performed By: #### 5 0103 #### [facility] [address] [place] [address], [facility] Glucose [Mass/Vol] 124 mg/dL High 70-100 [facility] Comment on above: Performed By: #### 5 0103 #### [address] [address], [facility] Glucose [Mass/Vol] 111 mg/dL High 70-100 [facility] Comment on above: Performed By: #### 5 7307, [address] #### [address] [address], [facility] PORTABLE CHEST 1 VIEWon 06-28 PORTABLE CHEST 1 VIEW [facility] Department of Radiology [address] [place] [id number] Patient Name: RASHARD LYMAN : 1960 Sex: M Age: Race: White Pt. Location: [address] [place] [address] Patient Status: I Ordered Date: 07/20/2020 6:00:00 [...] unchanged Electronically signed: Manuel Saldaña. Transcribed by: [email or web address], User Resident: Electronically Signed by: MANUEL SALDAÑA @ 07/20/2020 09:07 AM Normal [facility] Comment on above: Order Comment: Evalu ate for Effusion BASIC METABOLIC PANELon - Calcium [Mass/Vol] 8.4 mg/dL Low 8.6-10.3 [facility] Comment on above: Order Comment: No: D o not add to previous draw Performed By: #### 3 1943 #### [facility] [address] [place] [address], [place] Chloride [Moles/Vol] 104 mmol/L Normal 98-107 [facility] Comment on above: Order Comment: No: D o not add to previous draw Performed By: #### 3 1943 #### [facility] [address] [place] [address], [place] CO2 [Moles/Vol] 24 mmol/L Normal 21-31 [facility] Comment on above: Order Comment: No: D o not add to previous draw Performed By: #### 3 1943 #### [facility] [address] [place] [address], [place] Creatinine [Mass/Vol] 4.15 mg/dL High 0.70-1.30 [facility] Comment on above: Order Comment: No: D o not add to previous draw Performed By: #### 3 1943 #### [facility] [address] [place] [address], [place] eGFR- 18 ml/min/1.73sq m Abnormal >60 [facility] Comment on above: Order Comment: No: D o not add to previous draw Performed By: #### 3 1943 #### [facility] [address] [place] [address], [facility] eGFR- non- 15 ml/min/1.73sq m Abnormal >60 [facility] Comment on above: Order Comment: No: D o not add to previous draw Performed By: #### 3 1943 #### [facility] [address] [place] [address], [place] Glucose [Mass/Vol] 180 mg/dL High 70-100 [facility] Comment on above: Order Comment: No: D o not add to previous draw Performed By: #### 3 1943 #### [facility] [address] [place] [address], [place] Potassium [Moles/Vol] 4.4 mmol/L Normal 3.5-5.1 [facility] Comment on above: Order Comment: No: D o not add to previous draw Performed By: #### 3 1943 #### [facility] [address] [place] [address], [place] Sodium [Moles/Vol] 135 mmol/L Low 136-145 [facility] Comment on above: Order Comment: No: D o not add to previous draw Performed By: #### 3 1943 #### [facility] [address] [place] [address], [facility] Urea nitrogen [Mass/Vol] 37 mg/dL High 7-25 [facility] Comment on above: Order Comment: No: D o not add to previous draw Performed By: #### 3 194 #### [facility] [address] [place] [address], [facility] CBC COMPLETE BLOOD COUNTon 0 - Erythrocyte distribution width (RBC) [Ratio] 14.8 % Normal 11.5-15.0 [facility] Comment on above: Order Comment: No: D o not add to previous draw Performed By: #### 8 [id number] #### [facility] [address] [place] [address], [facility] Hematocrit (Bld) [Volume fraction] 30.9 % Low 39.0-50.0 [facility] Comment on above: Order Comment: No: D o not add to previous draw Performed By: #### 8 [id number] #### [facility] [address] [place] [address], [facility] Hemoglobin (Bld) [Mass/Vol] 9.0 g/dL Low 13.0-17.0 [facility] Comment on above: Order Comment: No: D o not add to previous draw Performed By: #### 8 5499 #### [facility] [address] [place] [address], [facility] MCH (RBC) [Entitic mass] 26.6 pg Low 27.0-33.0 [facility] Comment on above: Order Comment: No: D o not add to previous draw Performed By: #### 8 5499 #### [facility] [address] [place] [address], [facility] MCHC (RBC) [Mass/Vol] 29.1 g/dL Low 32.0-35.0 [facility] Comment on above: Order Comment: No: D o not add to previous draw Performed By: #### 8 5499 #### [facility] [address] [facility] [place] [address], [facility] MCV (RBC) [Entitic vol] 91.4 fL Normal 82.0-98.0 [facility] Comment on above: Order Comment: No: D o not add to previous draw Performed By: #### 8 5499 #### [facility] [address] [facility] [address], [facility] Nucleated RBC/100 WBC (Bld) [Ratio] 0 % Normal 0-0 [facility] Comment on above: Order Comment: No: D o not add to previous draw Performed By: #### 8 5499 #### [facility] [address] [facility] [place] [address], [facility] PLAT CNT 279 10*3/uL Normal 150-400 [facility] Comment on above: Order Comment: No: D o not add to previous draw Performed By: #### 8 5499 #### [facility] [address] [facility] [place] [address], [facility] RBC (Bld) [#/Vol] 3.38 10*6/uL Low 4.20-5.70 [facility] Comment on above: Order Comment: No: D o not add to previous draw Performed By: #### 8 5499 #### [facility] [address] [facility] [place] [place] [address], [facility] WBC (Bld) [#/Vol] 6.73 10*3/uL Normal 4.00-10.60 [facility] Comment on above: Order Comment: No: D o not add to previous draw Performed By: #### 8 5499 #### [facility] [address] [facility]. [address] Operative Reporton Operative Report MR#: [id number] I [facility] Pt. Name: [facility] Room #: [id number] Discharge Date: Birthdate: 1960 OPERATIVE REPORT DATE OF SURGERY: 07/19/2020 SURGEON: Nima Wynne MD Operative Note Medical Thoracoscopy, lysis of adhesions, pleural biopsy Procedure Date: 07/19/2020 Procedure: Medical Thoracoscopy, pleural biopsies, lysis of adhesions, and chest tube placement Preoperative Diagnosis: Loculated pleural effusion Post-operative Diagnosis: same Surgeons: Nima Wynne MD Women'S Studies Professor: Davis Pham MD Type of Anesthesia: MAC [...] Wynne MD Date Trans: 07/19/2020 02:43 P/ [id number] cc: Jose Juarez D.O. [address] [facility] [address] Normal [facility] POC GLUCOSE LABon 07-19-2020 Glucose [Mass/Vol] 219 mg/dL High 70-100 [facility] Comment on above: Performed By: #### 5 7307, 500[address] #### [facility] [address] [place] [address], [place] Glucose [Mass/Vol] 152 mg/dL High 70-100 [facility] Comment on above: Performed By: #### 5 7307, 01389 #### [facility] [address] [place] [address], [place] Glucose [Mass/Vol] 183 mg/dL High 70-100 [facility] Comment on above: Performed By: #### 5 0103 #### [facility] [address] [place] [address], [place] Glucose [Mass/Vol] 206 mg/dL High 70-100 [facility] Comment on above: Performed By: #### 8 5499 ####[facility] [place] [address], [place] Glucose [Mass/Vol] 179 mg/dL High 70-100 [facility] Comment on above: Performed By: #### 5 0103 #### [facility] [address] [place] [address], [place] PORTABLE CHEST 1 VIEWon 06-28 PORTABLE CHEST 1 VIEW [facility] Department of Radiology [address] [place] [id number] Patient Name: RASHARD LYMAN : 1960 Sex: M Age: Race: White Pt. Location: [address] [place] [address] Patient Status: I Ordered Date: 07/19/2020 2:20:00 [...] infiltration Electronically signed: Pedro Baldwin. Transcribed by: [email or web address], User Resident: PEDRO BALDWIN Electronically Signed by: PEDRO BALDWIN @ 07/19/2020 03:03 PM I personally read this/these film(s) with this resident Normal [facility] Comment on above: Order Comment: Check Chest Tube Position BASIC METABOLIC PANELon -2 Calcium [Mass/Vol] 8.4 mg/dL Low 8.6-10.3 [facility] Comment on above: Order Comment: No: D o not add to previous draw Performed By: #### 8 [id number] #### [facility] [address] [place] [address], [place] Chloride [Moles/Vol] 105 mmol/L Normal 98-107 [facility] Comment on above: Order Comment: No: D o not add to previous draw Performed By: #### 8 5499 #### [facility] [address] [place] [address], [place] CO2 [Moles/Vol] 25 mmol/L Normal 21-31 [facility] Comment on above: Order Comment: No: D o not add to previous draw Performed By: #### 8 5499 #### [facility] [address] [place] [address], [place] Creatinine [Mass/Vol] 4.54 mg/dL High 0.70-1.30 [facility] Comment on above: Order Comment: No: D o not add to previous draw Performed By: #### 8 5499 #### [facility] [address] [place] [address], [place] eGFR- 16 ml/min/1.73sq m Abnormal >60 [facility] Comment on above: Order Comment: No: D o not add to previous draw Performed By: #### 8 5499 #### [facility] [address] [place] [address], [place] eGFR- non- 13 ml/min/1.73sq m Abnormal >60 [facility] Comment on above: Order Comment: No: D o not add to previous draw Performed By: #### 8 5499 #### [facility] [address] [place] [address], [place] Glucose [Mass/Vol] 118 mg/dL High 70-100 [facility] Comment on above: Order Comment: No: D o not add to previous draw Performed By: #### 8 5499 #### [facility] [address] [place] [address], [facility] Potassium [Moles/Vol] 4.5 mmol/L Normal 3.5-5.1 [facility] [facility] Comment on above: Order Comment: No: D o not add to previous draw Performed By: #### 8 [id number] #### [facility] [address] [facility]. [address] Sodium [Moles/Vol] 137 mmol/L Normal 136-145 [facility] Comment on above: Order Comment: No: D o not add to previous draw Performed By: #### 8 [id number] #### [facility] [address] [facility]. [address] Urea nitrogen [Mass/Vol] 40 mg/dL High 7-25 [facility] Comment on above: Order Comment: No: D o not add to previous draw Performed By: #### 8 [id number] #### [facility] [address] [facility] [place] [address], [facility] CBC W/DIFFon 07-18-2020 ABS IMM GRANS 0.1 10*3/uL Normal 0.0-0.2 [facility] Comment on above: Order Comment: No: D o not add to previous draw Performed By: #### 8 [id number] #### [facility] [address] [facility] [place] [address], [facility] ABS NEUTROPHILS 5.0 10*3/uL Normal 1.6-7.6 [facility] Comment on above: Order Comment: No: D o not add to previous draw Performed By: #### 8 [id number] #### [facility] [address] [place] [address], [facility] Basophils (Bld) [#/Vol] 0.0 10*3/uL Normal 0.0-0.2 [facility] Comment on above: Order Comment: No: D o not add to previous draw Performed By: #### 8 [id number] #### [facility] [address] [place] [address], [facility] Basophils/100 WBC (Bld) 0.4 % Normal 0.0-1.0 [facility] Comment on above: Order Comment: No: D o not add to previous draw Performed By: #### 8 [id number] #### [facility] [address] [place] [address], [facility] Eosinophils (Bld) [#/Vol] 0.6 10*3/uL High 0.0-0.5 [facility] Comment on above: Order Comment: No: D o not add to previous draw Performed By: #### 8 [id number] #### [facility] [address] [place] [id number], [facility] Eosinophils/100 WBC (Bld) 6.8 % High 0.0-6.0 [facility] Comment on above: Order Comment: No: D o not add to previous draw Performed By: #### 8 [id number] #### [facility] [address] [facility] [place] [address], [facility] Erythrocyte distribution width (RBC) [Ratio] 14.8 % Normal 11.5-15.0 [facility] Comment on above: Order Comment: No: D o not add to previous draw Performed By: #### 8 [id number] #### [facility] [address] [place] [id number], [facility] Hematocrit (Bld) [Volume fraction] 31.9 % Low 39.0-50.0 [facility] Comment on above: Order Comment: No: D o not add to previous draw Performed By: #### 8 [id number] #### [facility] [address] [place] [id number], [facility] Hemoglobin (Bld) [Mass/Vol] 9.4 g/dL Low 13.0-17.0 [facility] Comment on above: Order Comment: No: D o not add to previous draw Performed By: #### 8 [id number] #### [facility] [address] [facility] [place] [address], [facility] IMMATURE GRANS 1.7 % High 0.0-1.0 [facility] Comment on above: Order Comment: No: D o not add to previous draw Performed By: #### 8 [id number] #### [facility] [address] [facility] [place] [address], [facility] Lymphocytes (Bld) [#/Vol] 1.2 10*3/uL Normal 1.2-4.0 [facility] Comment on above: Order Comment: No: D o not add to previous draw Performed By: #### 8 [id number] #### [facility] [address] [facility] [place] [address], [facility] Lymphocytes/100 WBC (Bld) 14.8 % Low 20.0-45.0 [facility] Comment on above: Order Comment: No: D o not add to previous draw Performed By: #### 8 [id number] #### [facility] [address] [facility] [place] [address], [facility] MCH (RBC) [Entitic mass] 26.9 pg Low 27.0-33.0 [facility] Comment on above: Order Comment: No: D o not add to previous draw Performed By: #### 8 [id number] #### [facility] [address] [facility] [place] [address], [facility] MCHC (RBC) [Mass/Vol] 29.5 g/dL Low 32.0-35.0 [facility] Comment on above: Order Comment: No: D o not add to previous draw Performed By: #### 8 [id number] #### [facility] [address] [place] [id number], [facility] MCV (RBC) [Entitic vol] 91.1 fL Normal 82.0-98.0 [facility] Comment on above: Order Comment: No: D o not add to previous draw Performed By: #### 8 [id number] #### [facility] [address] [place] [address], [facility] Monocytes (Bld) [#/Vol] 1.1 10*3/uL High 0.1-1.0 [facility] Comment on above: Order Comment: No: D o not add to previous draw Performed By: #### 8 [id number] #### [facility] [address] [place] [address], [facility] MONOS 13.4 % High 5.0-12.0 [facility] Comment on above: Order Comment: No: D o not add to previous draw Performed By: #### 8 [id number] #### [facility] [address] [facility] [place] [address], [facility] Neutrophils/100 WBC (Bld) 62.9 % Normal 40.0-72.0 [facility] Comment on above: Order Comment: No: D o not add to previous draw Performed By: #### 8 [id number] #### [facility] [address] [facility] [place] [address], [facility] Nucleated RBC/100 WBC (Bld) [Ratio] 0 % Normal 0-0 [facility] Comment on above: Order Comment: No: D o not add to previous draw Performed By: #### 8 [id number] #### [facility] [address] [facility] [place] [address], [facility] PLAT CNT 296 10*3/uL Normal 150-400 [facility] Comment on above: Order Comment: No: D o not add to previous draw Performed By: #### 8 [id number] #### [facility] [address] [facility] [place] [address], [facility] RBC (Bld) [#/Vol] 3.50 10*6/uL Low 4.20-5.70 [facility] Comment on above: Order Comment: No: D o not add to previous draw Performed By: #### 8 [id number] #### [facility] [address] [place] [address], [place] WBC (Bld) [#/Vol] 8.03 10*3/uL Normal 4.00-10.60 [facility] Comment on above: Order Comment: No: D o not add to previous draw Performed By: #### 8 [id number] #### [facility] [address] [place] [address], [place] POC GLUCOSE LABon 07-18-2020 Glucose [Mass/Vol] 192 mg/dL High 70-100 [facility] Comment on above: Performed By: #### 5 7307, [id number] #### [facility] [address] [place] [address], [place] Glucose [Mass/Vol] 153 mg/dL High 70-100 [facility] Comment on above: Performed By: #### 5 7307, 71878 #### [facility] [address] [place] [address], [place] Glucose [Mass/Vol] 80 mg/dL Normal 70-100 [facility] Comment on above: Performed By: #### 5 7307, 09065 #### [facility] [address] [place] [address], [place] Glucose [Mass/Vol] 48 mg/dL Critically low 70-100 [facility] Comment on above: Order Comment: Left Peural Effusion Performed By: #### 8 [id number] ####[facility] [place] [address], [place] Glucose [Mass/Vol] 120 mg/dL High 70-100 [facility] Comment on above: Performed By: #### 5 0103 #### [facility] [address] [place] [address], [place] Glucose [Mass/Vol] 112 mg/dL High 70-100 [facility] Comment on above: Performed By: #### 5 7307, 04275 #### [facility] [address] [facility]. [address] POC SARS COV2 ANTIGEN NEGATI VEon 07-18-2020 POC SARS COV2 ANTIGEN NEG CANCELED Normal NEGATIVE [facility] Comment on above: Result Comment: The released value NEGATIVE was canceled by ULISES on 07/19/2020 07:11 Performed By: #### 3 1944 #### [facility] [address] POC SARS COV2 ANTIGEN NEG Negative Normal NEGATIVE [facility] Comment on above: Result Comment: Nega [...] Accreditation. Performed By: #### 8 [id number] #### [facility] [address] BASIC METABOLIC PANELon 06-28 Calcium [Mass/Vol] 8.2 mg/dL Low 8.6-10.3 [facility] Comment on above: Order Comment: No: D o not add to previous draw Performed By: #### 3 1943 #### [facility] [address] [place] [address], [place] Chloride [Moles/Vol] 101 mmol/L Normal 98-107 [facility] Comment on above: Order Comment: No: D o not add to previous draw Performed By: #### 3 1943 #### [facility] [address] [place] [address], [place] CO2 [Moles/Vol] 25 mmol/L Normal 21-31 [facility] Comment on above: Order Comment: No: D o not add to previous draw Performed By: #### 3 1943 #### [facility] [address] [place] [address], [place] Creatinine [Mass/Vol] 3.64 mg/dL High 0.70-1.30 [facility] Comment on above: Order Comment: No: D o not add to previous draw Performed By: #### 3 1943 #### [facility] [address] [place] [address], [place] eGFR- 21 ml/min/1.73sq m Abnormal >60 [facility] Comment on above: Order Comment: No: D o not add to previous draw Performed By: #### 3 1943 #### [facility] [address] [place] [address], [place] eGFR- non- 17 ml/min/1.73sq m Abnormal >60 [facility] Comment on above: Order Comment: No: D o not add to previous draw Performed By: #### 3 1943 #### [facility] [address] [place] [address], [place] Glucose [Mass/Vol] 124 mg/dL High 70-100 [facility] Comment on above: Order Comment: No: D o not add to previous draw Performed By: #### 3 1943 #### [facility] [address] [place] [address], [place] Potassium [Moles/Vol] 4.3 mmol/L Normal 3.5-5.1 [facility] Comment on above: Order Comment: No: D o not add to previous draw Performed By: #### 3 1943 #### [facility] [address] [place] [id number], [facility] Sodium [Moles/Vol] 134 mmol/L Low 136-145 [facility] Comment on above: Order Comment: No: D o not add to previous draw Performed By: #### 3 1943 #### [facility] [address] [place] [address], [facility] Urea nitrogen [Mass/Vol] 36 mg/dL High 7-25 [facility] Comment on above: Order Comment: No: D o not add to previous draw Performed By: #### 3 1943 #### [facility] [address] [facility] [place] [address], [facility] CBC W/DIFFon 07-17-2020 ABS IMM GRANS 0.2 10*3/uL Normal 0.0-0.2 [facility] Comment on above: Order Comment: No: D o not add to previous draw Performed By: #### 8 [id number] #### [facility] [address] [place] [address], [facility] ABS NEUTROPHILS 5.8 10*3/uL Normal 1.6-7.6 [facility] Comment on above: Order Comment: No: D o not add to previous draw Performed By: #### 8 [id number] #### [facility] [address] [place] [address], [facility] Basophils (Bld) [#/Vol] 0.1 10*3/uL Normal 0.0-0.2 [facility] Comment on above: Order Comment: No: D o not add to previous draw Performed By: #### 8 [id number] #### [facility] [address] [place] [address], [facility] Basophils/100 WBC (Bld) 0.6 % Normal 0.0-1.0 [facility] Comment on above: Order Comment: No: D o not add to previous draw Performed By: #### 8 [id number] #### [facility] [address] [place] [address], [facility] Eosinophils (Bld) [#/Vol] 0.6 10*3/uL High 0.0-0.5 [facility] Comment on above: Order Comment: No: D o not add to previous draw Performed By: #### 8 [id number] #### [facility] [address] [place] [address], [facility] Eosinophils/100 WBC (Bld) 7.0 % High 0.0-6.0 [facility] Comment on above: Order Comment: No: D o not add to previous draw Performed By: #### 8 [id number] #### [facility] [address] [place] [address], [facility] Erythrocyte distribution width (RBC) [Ratio] 14.8 % Normal 11.5-15.0 [facility] Comment on above: Order Comment: No: D o not add to previous draw Performed By: #### 8 [id number] #### [facility] [address] [place] [address], [facility] Hematocrit (Bld) [Volume fraction] 30.0 % Low 39.0-50.0 [facility] Comment on above: Order Comment: No: D o not add to previous draw Performed By: #### 8 [id number] #### [facility] [address] [place] [address], [facility] Hemoglobin (Bld) [Mass/Vol] 9.2 g/dL Low 13.0-17.0 [facility] Comment on above: Order Comment: No: D o not add to previous draw Performed By: #### 8 [id number] #### [facility] [address] [place] [address], [facility] IMMATURE GRANS 1.7 % High 0.0-1.0 [facility] Comment on above: Order Comment: No: D o not add to previous draw Performed By: #### 8 [id number] #### [facility] [address] [place] [address], [facility] Lymphocytes (Bld) [#/Vol] 1.3 10*3/uL Normal 1.2-4.0 [facility] Comment on above: Order Comment: No: D o not add to previous draw Performed By: #### 8 [id number] #### [facility] [address] [facility] [place] [address], [facility] Lymphocytes/100 WBC (Bld) 14.3 % Low 20.0-45.0 [facility] Comment on above: Order Comment: No: D o not add to previous draw Performed By: #### 8 [id number] #### [facility] [address] [facility] [place] [address], [facility] MCH (RBC) [Entitic mass] 27.3 pg Normal 27.0-33.0 [facility] Comment on above: Order Comment: No: D o not add to previous draw Performed By: #### 8 [id number] #### [facility] [address] [facility] [place] [address], [facility] MCHC (RBC) [Mass/Vol] 30.7 g/dL Low 32.0-35.0 [facility] Comment on above: Order Comment: No: D o not add to previous draw Performed By: #### 8 [id number] #### [facility] [address] [facility] [place] [address], [facility] MCV (RBC) [Entitic vol] 89.0 fL Normal 82.0-98.0 [facility] Comment on above: Order Comment: No: D o not add to previous draw Performed By: #### 8 [id number] #### [facility] [address] [place] [address], [facility] Monocytes (Bld) [#/Vol] 1.0 10*3/uL Normal 0.1-1.0 [facility] Comment on above: Order Comment: No: D o not add to previous draw Performed By: #### 8 [id number] #### [facility] [address] [place] [id number], [facility] MONOS 10.9 % Normal 5.0-12.0 [facility] Comment on above: Order Comment: No: D o not add to previous draw Performed By: #### 8 [id number] #### [facility] [address] [place] [address], [facility] Neutrophils/100 WBC (Bld) 65.5 % Normal 40.0-72.0 [facility] Comment on above: Order Comment: No: D o not add to previous draw Performed By: #### 8 [id number] #### [facility] [address] [place] [id number], [facility] Nucleated RBC/100 WBC (Bld) [Ratio] 0 % Normal 0-0 [facility] Comment on above: Order Comment: No: D o not add to previous draw Performed By: #### 8 [id number] #### [facility] [address] [place] [address], [place] PLAT CNT 293 10*3/uL Normal 150-400 [facility] Comment on above: Order Comment: No: D o not add to previous draw Performed By: #### 8 [id number] #### [facility] [address] [place] [address], [facility] RBC (Bld) [#/Vol] 3.37 10*6/uL Low 4.20-5.70 [facility] Comment on above: Order Comment: No: D o not add to previous draw Performed By: #### 8 [id number] #### [facility] [address] [place] [address], [place] WBC (Bld) [#/Vol] 8.86 10*3/uL Normal 4.00-10.60 [facility] Comment on above: Order Comment: No: D o not add to previous draw Performed By: #### 8 [id number] #### [facility] [address] [place] [address], [place] POC GLUCOSE LABon 07-17-2020 Glucose [Mass/Vol] 101 mg/dL High 70-100 [facility] Comment on above: Performed By: #### 5 7307, 77774 #### [facility] [address] [place] [address], [place] Glucose [Mass/Vol] 76 mg/dL Normal 70-100 [facility] Comment on above: Performed By: #### 5 7307, 86833 #### [facility] [address] [place] [address], [place] Glucose [Mass/Vol] 75 mg/dL Normal 70-100 [facility] Comment on above: Performed By: #### 8 [id number] ####[facility] [place] [address], [place] Glucose [Mass/Vol] 198 mg/dL High 70-100 [facility] Comment on above: Performed By: #### 8 [id number] ####[facility] [place] [address], [place] Glucose [Mass/Vol] 205 mg/dL High 70-100 [facility] Comment on above: Performed By: #### 3 0318 #### [facility] [address] [place] [address], [place] Glucose [Mass/Vol] 187 mg/dL High 70-100 [facility] Comment on above: Performed By: #### 5 7307, 99485 #### [facility] [address] [place] [address], [place] Glucose [Mass/Vol] 131 mg/dL High 70-100 [facility] Comment on above: Performed By: #### 8 [id number] #### [facility] [address] [place] [address], [facility] Glucose [Mass/Vol] 75 mg/dL Normal 70-100 [facility] Comment on above: Performed By: #### 5 0103 #### [facility] [address] [place] [address], [place] Glucose [Mass/Vol] 69 mg/dL Low 70-100 [facility] Comment on above: Performed By: #### 8 [id number] ####[facility] [place] [address], [facility] BASIC METABOLIC PANELon 03-2 Calcium [Mass/Vol] 8.4 mg/dL Low 8.6-10.3 [facility] Comment on above: Order Comment: No: D o not add to previous draw Performed By: #### 3 1943 #### [facility] [address] [place] [address], [place] Chloride [Moles/Vol] 105 mmol/L Normal 98-107 [facility] Comment on above: Order Comment: No: D o not add to previous draw Performed By: #### 3 1943 #### [facility] [address] [place] [address], [facility] CO2 [Moles/Vol] 24 mmol/L Normal 21-31 [facility] Comment on above: Order Comment: No: D o not add to previous draw Performed By: #### 3 1943 #### [facility] [address] [place] [address], [place] Creatinine [Mass/Vol] 4.14 mg/dL High 0.70-1.30 [facility] Comment on above: Order Comment: No: D o not add to previous draw Performed By: #### 3 1943 #### [facility] [address] [place] [address], [facility] eGFR- 18 ml/min/1.73sq m Abnormal >60 [facility] Comment on above: Order Comment: No: D o not add to previous draw Performed By: #### 3 1943 #### [facility] [address] [place] [address], [facility] eGFR- non- 15 ml/min/1.73sq m Abnormal >60 [facility] Comment on above: Order Comment: No: D o not add to previous draw Performed By: #### 3 1943 #### [facility] [address] [place] [address], [place] Glucose [Mass/Vol] 127 mg/dL High 70-100 [facility] Comment on above: Order Comment: No: D o not add to previous draw Performed By: #### 3 1943 #### [facility] [address] [place] [address], [place] Potassium [Moles/Vol] 4.0 mmol/L Normal 3.5-5.1 [facility] Comment on above: Order Comment: No: D o not add to previous draw Performed By: #### 3 1943 #### [facility] [address] [place] [address], [place] Sodium [Moles/Vol] 136 mmol/L Normal 136-145 [facility] Comment on above: Order Comment: No: D o not add to previous draw Performed By: #### 3 1943 #### [facility] [address] [place] [address], [place] Urea nitrogen [Mass/Vol] 35 mg/dL High 7-25 [facility] Comment on above: Order Comment: No: D o not add to previous draw Performed By: #### 3 1943 #### [facility] [address] [place] [address], [facility] CBC COMPLETE BLOOD COUNTon 0 - Erythrocyte distribution width (RBC) [Ratio] 14.6 % Normal 11.5-15.0 [facility] Comment on above: Order Comment: No: D o not add to previous draw Performed By: #### 8 [id number] #### [facility] [address] [place] [address], [facility] Hematocrit (Bld) [Volume fraction] 31.8 % Low 39.0-50.0 [facility] Comment on above: Order Comment: No: D o not add to previous draw Performed By: #### 8 [id number] #### [facility] [address] [place] [address], [facility] Hemoglobin (Bld) [Mass/Vol] 9.7 g/dL Low 13.0-17.0 [facility] Comment on above: Order Comment: No: D o not add to previous draw Performed By: #### 8 [id number] #### [facility] [address] [facility] [place] [id number], [facility] MCH (RBC) [Entitic mass] 27.2 pg Normal 27.0-33.0 [facility] Comment on above: Order Comment: No: D o not add to previous draw Performed By: #### 8 [id number] #### [facility] [address] [facility] [place] [address], [facility] MCHC (RBC) [Mass/Vol] 30.5 g/dL Low 32.0-35.0 [facility] Comment on above: Order Comment: No: D o not add to previous draw Performed By: #### 8 [id number] #### [facility] [address] [facility] [place] [address], [facility] MCV (RBC) [Entitic vol] 89.3 fL Normal 82.0-98.0 [facility] Comment on above: Order Comment: No: D o not add to previous draw Performed By: #### 8 [id number] #### [facility] [address] [facility] [place] [address], [facility] Nucleated RBC/100 WBC (Bld) [Ratio] 0 % Normal 0-0 [facility] Comment on above: Order Comment: No: D o not add to previous draw Performed By: #### 8 [id number] #### [facility] [address] [place] [address], [place] PLAT CNT 321 10*3/uL Normal 150-400 [facility] Comment on above: Order Comment: No: D o not add to previous draw Performed By: #### 8 [id number] #### [facility] [address] [place] [address], [place] RBC (Bld) [#/Vol] 3.56 10*6/uL Low 4.20-5.70 [facility] Comment on above: Order Comment: No: D o not add to previous draw Performed By: #### 8 [id number] #### [facility] [address] [place] [address], [place] WBC (Bld) [#/Vol] 8.88 10*3/uL Normal 4.00-10.60 [facility] Comment on above: Order Comment: No: D o not add to previous draw Performed By: #### 8 [id number] #### [facility] [address] [place] [address], [place] POC GLUCOSE LABon 07-16-2020 Glucose [Mass/Vol] 94 mg/dL Normal 70-100 [facility] Comment on above: Performed By: #### 5 0103 #### [facility] [address] [place] [address], [place] Glucose [Mass/Vol] 62 mg/dL Low 70-100 [facility] Comment on above: Performed By: #### 5 7307, 82711 #### [facility] [address] [place] [address], [place] Glucose [Mass/Vol] 80 mg/dL Normal 70-100 [facility] Comment on above: Performed By: #### 5 7307, 58096 #### [facility] [address] [place] [address], [place] Glucose [Mass/Vol] 99 mg/dL Normal 70-100 [facility] Comment on above: Performed By: #### 8 [id number] ####[facility] [place] [address], [facility] Glucose [Mass/Vol] 203 mg/dL High 70-100 [facility] Comment on above: Performed By: #### 8 [id number] ####[facility] [place] [address], [facility] Glucose [Mass/Vol] 151 mg/dL High 70-100 [facility] Comment on above: Performed By: #### 5 7307, 60426 #### [facility] [address] [place] [address], [facility] ANAon 07-15-2020 KILLIAN SCREEN <1:40 Normal <1:40,1:40 [facility] Comment on above: Order Comment: No: D o not add to previous draw Performed By: #### 8 [id number] #### [facility] [address] [place] [address], [facility] ANCA IGG WITH REFLEX [id number] on 07-15-2020 ANCA <1:20 Normal <1:20 [facility] Comment on above: Order Comment: No: [...] collagen vascular disease or arthritis. Performed By: [facility] [address] [place] [address] Driver Education Instructor: Emi Campbell MD BASIC METABOLIC PANELon 06-27 Calcium [Mass/Vol] 8.5 mg/dL Low 8.6-10.3 [facility] Comment on above: Order Comment: No: D o not add to previous draw Performed By: #### 8 [id number] #### [facility] [address] [place] [address], [place] Chloride [Moles/Vol] 103 mmol/L Normal 98-107 [facility] Comment on above: Order Comment: No: D o not add to previous draw Performed By: #### 8 [id number] #### [facility] [address] [place] [address], [place] CO2 [Moles/Vol] 23 mmol/L Normal 21-31 [facility] Comment on above: Order Comment: No: D o not add to previous draw Performed By: #### 8 [id number] #### [facility] [address] [place] [address], [place] Creatinine [Mass/Vol] 4.38 mg/dL High 0.70-1.30 [facility] Comment on above: Order Comment: No: D o not add to previous draw Performed By: #### 8 [id number] #### [facility] [address] [place] [address], [place] eGFR- 17 ml/min/1.73sq m Abnormal >60 [facility] Comment on above: Order Comment: No: D o not add to previous draw Performed By: #### 8 [id number] #### [facility] [address] [place] [address], [place] eGFR- non- 14 ml/min/1.73sq m Abnormal >60 [facility] Comment on above: Order Comment: No: D o not add to previous draw Performed By: #### 8 [id number] #### [facility] [address] [place] [address], [place] Glucose [Mass/Vol] 154 mg/dL High 70-100 [facility] Comment on above: Order Comment: No: D o not add to previous draw Performed By: #### 8 [id number] #### [facility] [address] [place] [address], [place] Potassium [Moles/Vol] 4.5 mmol/L Normal 3.5-5.1 [facility] Comment on above: Order Comment: No: D o not add to previous draw Performed By: #### 8 [id number] #### [facility] [address] Sodium [Moles/Vol] 135 mmol/L Low 136-145 [facility] Comment on above: Order Comment: No: D o not add to previous draw Performed By: #### 8 [id number] #### [facility] [address] Urea nitrogen [Mass/Vol] 32 mg/dL High 7-25 [facility] Comment on above: Order Comment: No: D o not add to previous draw Performed By: #### 8 [id number] #### [facility] [address] [facility] C REACTIVE PROTEINon 021 CRP [Mass/Vol] 138.0 mg/L High 0.0-7.0 [facility] Comment on above: Order Comment: FROM [id number] Performed By: #### 8 5499 #### [facility] [address] CBC W/DIFFon 07-15-2020 ABS IMM GRANS 0.1 10*3/uL Normal 0.0-0.2 [facility] Comment on above: Performed By: #### 5 3 #### [facility] [address] [facility]. [address] ABS NEUTROPHILS 7.3 10*3/uL Normal 1.6-7.6 [facility] Comment on above: Performed By: #### 5 3 #### [facility] [address] [place] [address], [facility] Basophils (Bld) [#/Vol] 0.0 10*3/uL Normal 0.0-0.2 [facility] Comment on above: Performed By: #### 5 3 #### [facility] [address] [place] [address], [facility] Basophils/100 WBC (Bld) 0.3 % Normal 0.0-1.0 [facility] Comment on above: Performed By: #### 5 0103 #### [facility] [address] [facility] [place] [address], [facility] Eosinophils (Bld) [#/Vol] 0.5 10*3/uL Normal 0.0-0.5 [facility] Comment on above: Performed By: #### 5 0103 #### [facility] [address] [facility] [place] [address], [facility] Eosinophils/100 WBC (Bld) 5.1 % Normal 0.0-6.0 [facility] Comment on above: Performed By: #### 3 #### [facility] [address] Erythrocyte distribution width (RBC) [Ratio] 14.9 % Normal 11.5-15.0 [facility] Comment on above: Performed By: #### 5 0103 #### [facility] [address] Hematocrit (Bld) [Volume fraction] 33.0 % Low 39.0-50.0 [facility] Comment on above: Performed By: #### 5 3 #### [facility] [address] [place] [address], [facility] Hemoglobin (Bld) [Mass/Vol] 9.9 g/dL Low 13.0-17.0 [facility] Comment on above: Performed By: #### 5 0103 #### [facility] [address] [place] [address], [facility] IMMATURE GRANS 1.4 % High 0.0-1.0 [facility] Comment on above: Performed By: #### 5 3 #### [facility] [address] Lymphocytes (Bld) [#/Vol] 1.1 10*3/uL Low 1.2-4.0 [facility] Comment on above: Performed By: #### 5 0103 #### [facility] [address] Lymphocytes/100 WBC (Bld) 11.0 % Low 20.0-45.0 [facility] Comment on above: Performed By: #### 5 0103 #### [facility] [address] MCH (RBC) [Entitic mass] 27.0 pg Normal 27.0-33.0 [facility] Comment on above: Performed By: #### 5 3 #### [facility] [address] MCHC (RBC) [Mass/Vol] 30.0 g/dL Low 32.0-35.0 [facility] Comment on above: Performed By: #### 3 #### [facility] [address] [place] [address], [facility] MCV (RBC) [Entitic vol] 90.2 fL Normal 82.0-98.0 [facility] Comment on above: Performed By: #### 5 3 #### [facility] [address] [place] [address], [facility] Monocytes (Bld) [#/Vol] 1.1 10*3/uL High 0.1-1.0 [facility] Comment on above: Performed By: #### 5 3 #### [facility] [address] [place] [address], [facility] MONOS 10.9 % Normal 5.0-12.0 [facility] Comment on above: Performed By: #### 5 3 #### [facility] [address] [place] [address], [facility] Neutrophils/100 WBC (Bld) 71.3 % Normal 40.0-72.0 [facility] Comment on above: Performed By: #### 5 0103 #### [facility] [address] [place] [address], [facility] Nucleated RBC/100 WBC (Bld) [Ratio] 0 % Normal 0-0 [facility] Comment on above: Performed By: #### 5 0103 #### [facility] [address] [place] [address], [facility] PLAT CNT 317 10*3/uL Normal 150-400 [facility] Comment on above: Performed By: #### 5 3 #### [facility] [address] [facility] [place] [address], [facility] RBC (Bld) [#/Vol] 3.66 10*6/uL Low 4.20-5.70 [facility] Comment on above: Performed By: #### 5 0103 #### [facility] [address] [facility] [place] [address], [facility] WBC (Bld) [#/Vol] 10.23 10*3/uL Normal 4.00-10.60 [facility] Comment on above: Performed By: #### 5 0103 #### [facility] [address] [facility] [place] [address], [facility] COMPLEMENT 307-15-2020 COMPLEMENT 3 108 mg/dL Normal 79-152 [facility] Comment on above: Order Comment: No: D o not add to previous draw Performed By: #### 8 5499 #### [facility] [address] [place] [address], [facility] COMPLEMENT 407-15-2020 COMPLEMENT 4 31 mg/dL Normal 16-38 [facility] Comment on above: Order Comment: No: D o not add to previous draw Performed By: #### 8 5499 #### [facility] [address] [place] [address], [facility] GLOMR BASMT MEMBRon 07-16-19 21 GLOMR BASMT MBRN Negative Abnormal NEGATIVE [facility] Comment on above: Order Comment: No: D o not add to previous draw Result Comment: Note : The performance characteristics of this test were validated by the [facility]. It has not been cleared or approved by the U.S. Food and Drug Administration. The results are not intended to be used as the sole means for clinical diagnosis or patient management decisions. [facility] lab is authorized under CLIA to perform high-complexity testing. Performed By: #### 8 [id number] #### [facility] [address] [place] [address], [facility] POC GLUCOSE LABon 07-15-2020 Glucose [Mass/Vol] 107 mg/dL High 70-100 [facility] Comment on above: Performed By: #### 5 7307, 42019 #### [facility] [address] [place] [address], [facility] Glucose [Mass/Vol] 84 mg/dL Normal 70-100 [facility] Comment on above: Performed By: #### 5 0103 #### [facility] [address] [place] [address], [facility] Glucose [Mass/Vol] 164 mg/dL High 70-100 [facility] Comment on above: Performed By: #### 8 5499 ####[facility] [place] [address], [facility] Glucose [Mass/Vol] 141 mg/dL High 70-100 [facility] Comment on above: Performed By: #### 5 7307, 27081 #### [facility] [address] [place] [address], [facility] PORTABLE CHEST 1 VIEWon 06-27 PORTABLE CHEST 1 VIEW [facility] Department of Radiology [address] [place] [id number] Patient Name: RASHARD LYMAN : 1960 Sex: M Age: Race: White Pt. Location: [address] [place] [address] Patient Status: I Ordered Date: 07/15/2020 7:00:00 AM Completed Date: 07/15/2020 07:18 AM Requesting Provider: SAVANNAH REYNOLDS Attending Provider: SAVANNAH REYNOLDS Report Copy To: [...] exam. Electronically signed: Nir Swartz. Transcribed by: [email or web address], User Resident: Electronically Signed by: NIR SWARTZ @ 07/15/2020 07:34 AM Normal [facility] Comment on above: Order Comment: evalu ate for Effusion *AFB CULTUREon 07-14-2020 *AFB CULTURE Clinical Report: (D) Specimen/Source: FLUID/PLEURAL FLUID Collected: 07/14/2020 13:03 Status: Final Last Updated: 08/26/2020 08:52 (1) Left Peural Effusion AFB (Final) No Acid Fast Bacilli Seen CULT RES (Final) No growth after 42 days of incubation Normal [facility] Comment on above: Order Comment: Left Peural Effusion Performed By: #### 8 5499 #### [facility] [address] [place], [place] [id number] [place] [address] *ANAEROBIC CULTUREon 021 *ANAEROBIC CULTURE Clinical Report: (D) Specimen/Source: FLUID/PLEURAL FLUID Collected: 07/14/2020 13:03 Status: Final Last Updated: 07/19/2020 08:08 (1) Left Peural Effusion CULT RES (Final) No Anaerobes Isolated 5 Days Normal [facility] Comment on above: Order Comment: Left Peural Effusion Performed By: #### 8 5499 #### [facility] [address] [place] [address], [facility] *BODY FLUID CULTUREon 2020 *BODY FLUID CULTURE Clinical Report: (D) Specimen/Source: FLUID/PLEURAL FLUID Collected: 07/14/2020 13:03 Status: Final Last Updated: 07/19/2020 07:53 (1) Left Peural Effusion GRAM (Final) Polys PRESENT No Bacteria Seen CYTOSPUN (Final) This Gram Stain was done on a cytocentrifuged specimen CULT RES (Final) No Growth Day 5 Normal [facility] Comment on above: Order Comment: Left Peural Effusion Performed By: #### 3 0318 #### [facility] [address] [place] [address], [facility] *FUNGAL CULTUREon 07-14-2020 *FUNGAL CULTURE Clinical Report: (D) Specimen/Source: FLUID/PLEURAL FLUID Collected: 07/14/2020 13:03 Status: Final Last Updated: 08/15/2020 08:41 (1) Left Peural Effusion FS (Final) No Yeast or Fungal Elements Seen CULT RES (Final) Culture negative for fungus Normal [facility] Comment on above: Order Comment: Left Peural Effusion Performed By: #### 8 [id number] #### [facility] [address] [place], [place] [address] *VIRAL NON RESPIRATORY CULTU REon 07-14-2020 Bacteria identified Cx Nom (Unsp spec) Normal [facility] Comment on above: Order Comment: Left [...] Linked Virus Inducible S. [place] Normal [facility] Comment on above: Order Comment: Left Peural Effusion Result Comment: Test Performed by [facility] [address] - Released 07/20/2020 14:10 Result changed by IF on 07/17/2020 14:17. The previous value was Test Performed by [facility] [address] [phone].. Result changed by IF on 07/18/2020 12:17. The previous value was Test Performed by [facility] [address] [phone].. Result changed by IF on 07/20/2020 14:10. The previous value was Test Performed by [address] [address] [phone].. REPORT STATUS FINAL 07/20/2020 Normal [facility] Comment on above: Order Comment: Left Peural Effusion Result Comment: Resu lt changed by IF on 07/20/2020 14:10. The previous value was Preliminary. APTTon 07-14-2020 aPTT Coag (Bld) [Time] 41.7 s High 25.0-35.0 [facility] Comment on above: Order Comment: No: [...] PURPOSE. Performed By: #### 8 5499 #### [facility] [address] [place] [address], [facility] aPTT Coag (Bld) [Time] 44.9 s High 25.0-35.0 [facility] Comment on above: Order Comment: No: [...] THIS PURPOSE. Performed By: #### 5 7307, 91919 #### [facility] [address] [place] [address], [facility] BASIC METABOLIC PANELon - Calcium [Mass/Vol] 8.6 mg/dL Normal 8.6-10.3 [facility] Comment on above: Order Comment: No: D o not add to previous draw Performed By: #### 8 5499 #### [facility] [address] [place] [address], [place] Chloride [Moles/Vol] 102 mmol/L Normal 98-107 [facility] Comment on above: Order Comment: No: D o not add to previous draw Performed By: #### 8 5499 #### [facility] [address] [place] [address], [place] CO2 [Moles/Vol] 24 mmol/L Normal 21-31 [facility] Comment on above: Order Comment: No: D o not add to previous draw Performed By: #### 8 5499 #### [facility] [address] [place] [address], [place] Creatinine [Mass/Vol] 3.44 mg/dL High 0.70-1.30 [facility] Comment on above: Order Comment: No: D o not add to previous draw Performed By: #### 8 5499 #### [facility] [address] [place] [address], [facility] eGFR- 22 ml/min/1.73sq m Abnormal >60 [facility] Comment on above: Order Comment: No: D o not add to previous draw Performed By: #### 8 5499 #### [facility] [address] [place] [address], [facility] eGFR- non- 18 ml/min/1.73sq m Abnormal >60 [facility] Comment on above: Order Comment: No: D o not add to previous draw Performed By: #### 8 5499 #### [facility] [address] [place] [address], [place] Glucose [Mass/Vol] 355 mg/dL High 70-100 [facility] Comment on above: Order Comment: No: D o not add to previous draw Performed By: #### 8 5499 #### [facility] [address] [place] [address], [place] Potassium [Moles/Vol] 4.6 mmol/L Normal 3.5-5.1 [facility] Comment on above: Order Comment: No: D o not add to previous draw Performed By: #### 8 5499 #### [facility] [address] [place] [address], [place] Sodium [Moles/Vol] 133 mmol/L Low 136-145 [facility] Comment on above: Order Comment: No: D o not add to previous draw Performed By: #### 8 5499 #### [facility] [address] [place] [address], [facility] Urea nitrogen [Mass/Vol] 27 mg/dL High 7-25 [facility] Comment on above: Order Comment: No: D o not add to previous draw Performed By: #### 8 5499 #### [facility] [address] [place] [address], [facility] BNP (B-TYPE NATRIURETIC PEPT CIERRA)on 07-14-2020 Natriuretic peptide B (Bld) [Mass/Vol] 19 pg/mL Normal 0-100 [facility] Comment on above: Order Comment: Left Peural Effusion Result Comment: Give n the appropriate clinical setting a BNP result of >100 pg/mL indicates congestive heart failure. Performed By: #### 3 0318 #### [facility] [address] CBC COMPLETE BLOOD COUNTon 0 07-14-2020 Erythrocyte distribution width (RBC) [Ratio] 14.6 % Normal 11.5-15.0 [facility] Comment on above: Order Comment: No: D o not add to previous draw Performed By: #### 8 [id number] #### [facility] [address] [place] [address], [facility] Hematocrit (Bld) [Volume fraction] 35.3 % Low 39.0-50.0 [facility] Comment on above: Order Comment: No: D o not add to previous draw Performed By: #### 8 5499 #### [facility] [address] [place] [address], [facility] Hemoglobin (Bld) [Mass/Vol] 11.1 g/dL Low 13.0-17.0 [facility] Comment on above: Order Comment: No: D o not add to previous draw Performed By: #### 8 5499 #### [facility] [address] [place] [address], [facility] MCH (RBC) [Entitic mass] 27.5 pg Normal 27.0-33.0 [facility] Comment on above: Order Comment: No: D o not add to previous draw Performed By: #### 8 5499 #### [facility] [address] [place] [address], [facility] MCHC (RBC) [Mass/Vol] 31.4 g/dL Low 32.0-35.0 [facility] Comment on above: Order Comment: No: D o not add to previous draw Performed By: #### 8 5499 #### [facility] [address] [facility] [place] [address], [facility] MCV (RBC) [Entitic vol] 87.6 fL Normal 82.0-98.0 [facility] Comment on above: Order Comment: No: D o not add to previous draw Performed By: #### 8 5499 #### [facility] [address] [facility] [place] [address], [facility] Nucleated RBC/100 WBC (Bld) [Ratio] 0 % Normal 0-0 [facility] Comment on above: Order Comment: No: D o not add to previous draw Performed By: #### 8 [id number] #### [facility] [address] [facility] [place] [address], [facility] PLAT CNT 325 10*3/uL Normal 150-400 [facility] Comment on above: Order Comment: No: D o not add to previous draw Performed By: #### 8 5499 #### [facility] [address] [facility] [place] [address], [facility] RBC (Bld) [#/Vol] 4.03 10*6/uL Low 4.20-5.70 [facility] Comment on above: Order Comment: No: D o not add to previous draw Performed By: #### 8 5499 #### [facility] [address] [place] [address], [facility] WBC (Bld) [#/Vol] 12.59 10*3/uL High 4.00-10.60 [facility] Comment on above: Order Comment: No: D o not add to previous draw Performed By: #### 8 [id number] #### [facility] [address] [facility] [place] [address], [facility] CBC W/DIFFon 07-14-2020 ABS IMM GRANS 0.2 10*3/uL Normal 0.0-0.2 [facility] Comment on above: Order Comment: No: D o not add to previous draw Performed By: #### 8 [id number] #### [facility] [address] [facility] [place] [address], [facility] ABS NEUTROPHILS 7.9 10*3/uL High 1.6-7.6 [facility] Comment on above: Order Comment: No: D o not add to previous draw Performed By: #### 8 [id number] #### [facility] [address] [facility] [place] [address], [facility] Basophils (Bld) [#/Vol] 0.1 10*3/uL Normal 0.0-0.2 [facility] Comment on above: Order Comment: No: D o not add to previous draw Performed By: #### 8 5499 #### [facility] [address] [facility] [place] [address], [facility] Basophils/100 WBC (Bld) 0.5 % Normal 0.0-1.0 [facility] Comment on above: Order Comment: No: D o not add to previous draw Performed By: #### 8 [id number] #### [facility] [address] [facility]. [place] [address], [facility] Eosinophils (Bld) [#/Vol] 0.5 10*3/uL Normal 0.0-0.5 [facility] Comment on above: Order Comment: No: D o not add to previous draw Performed By: #### 8 [id number] #### [facility] [address] [place] [address], [facility] Eosinophils/100 WBC (Bld) 4.3 % Normal 0.0-6.0 [facility] Comment on above: Order Comment: No: D o not add to previous draw Performed By: #### 8 [id number] #### [facility] [address] [place] [address], [facility] Erythrocyte distribution width (RBC) [Ratio] 14.6 % Normal 11.5-15.0 [facility] Comment on above: Order Comment: No: D o not add to previous draw Performed By: #### 8 [id number] #### [facility] [address] [place] [address], [facility] Hematocrit (Bld) [Volume fraction] 34.2 % Low 39.0-50.0 [facility] Comment on above: Order Comment: No: D o not add to previous draw Performed By: #### 8 [id number] #### [facility] [address] [place] [address], [facility] Hemoglobin (Bld) [Mass/Vol] 10.3 g/dL Low 13.0-17.0 [facility] Comment on above: Order Comment: No: D o not add to previous draw Performed By: #### 8 [id number] #### [facility] [address] [place] [address], [facility] IMMATURE GRANS 1.4 % High 0.0-1.0 [facility] Comment on above: Order Comment: No: D o not add to previous draw Performed By: #### 8 [id number] #### [facility] [address] [place] [address], [facility] Lymphocytes (Bld) [#/Vol] 1.3 10*3/uL Normal 1.2-4.0 [facility] Comment on above: Order Comment: No: D o not add to previous draw Performed By: #### 8 [id number] #### [facility] [address] [place] [address], [facility] Lymphocytes/100 WBC (Bld) 11.3 % Low 20.0-45.0 [facility] Comment on above: Order Comment: No: D o not add to previous draw Performed By: #### 8 [id number] #### [facility] [address] [place] [address], [facility] MCH (RBC) [Entitic mass] 27.0 pg Normal 27.0-33.0 [facility] Comment on above: Order Comment: No: D o not add to previous draw Performed By: #### 8 [id number] #### [facility] [address] [place] [address], [facility] MCHC (RBC) [Mass/Vol] 30.1 g/dL Low 32.0-35.0 [facility] Comment on above: Order Comment: No: D o not add to previous draw Performed By: #### 8 [id number] #### [facility] [address] [facility] [place] [address], [facility] MCV (RBC) [Entitic vol] 89.5 fL Normal 82.0-98.0 [facility] Comment on above: Order Comment: No: D o not add to previous draw Performed By: #### 8 [id number] #### [facility] [address] [facility] [place] [address], [facility] Monocytes (Bld) [#/Vol] 1.4 10*3/uL High 0.1-1.0 [facility] Comment on above: Order Comment: No: D o not add to previous draw Performed By: #### 8 [id number] #### [facility] [address] [facility] [place] [id number], [facility] MONOS 12.6 % High 5.0-12.0 [facility] Comment on above: Order Comment: No: D o not add to previous draw Performed By: #### 8 [id number] #### [facility] [address] [place] [address], [facility] Neutrophils/100 WBC (Bld) 69.9 % Normal 40.0-72.0 [facility] Comment on above: Order Comment: No: D o not add to previous draw Performed By: #### 8 [id number] #### [facility] [address] [place] [address], [facility] Nucleated RBC/100 WBC (Bld) [Ratio] 0 % Normal 0-0 [facility] Comment on above: Order Comment: No: D o not add to previous draw Performed By: #### 8 [id number] #### [facility] [address] [place] [address], [facility] PLAT CNT 292 10*3/uL Normal 150-400 [facility] Comment on above: Order Comment: No: D o not add to previous draw Performed By: #### 8 [id number] #### [facility] [address] [place] [address], [facility] RBC (Bld) [#/Vol] 3.82 10*6/uL Low 4.20-5.70 [facility] Comment on above: Order Comment: No: D o not add to previous draw Performed By: #### 8 [id number] #### [facility] [address] [place] [address], [facility] WBC (Bld) [#/Vol] 11.28 10*3/uL High 4.00-10.60 [facility] Comment on above: Order Comment: No: D o not add to previous draw Performed By: #### 8 [id number] #### [facility] [address] [place] [address], [facility] COMP METABOLIC PANELon 07-14 Albumin [Mass/Vol] 3.1 g/dL Low 3.5-5.7 [facility] Comment on above: Order Comment: No: D o not add to previous draw Performed By: #### 8 [id number] #### [facility] [address] [place] [address], [facility] ALKALINE PHOSPH 77 IU/L Normal 34-104 [facility] Comment on above: Order Comment: No: D o not add to previous draw Performed By: #### 8 [id number] #### [facility] [address] [place] [address], [place] ALT [Catalytic activity/Vol] 8 U/L Normal 7-52 [facility] Comment on above: Order Comment: No: D o not add to previous draw Performed By: #### 8 [id number] #### [facility] [address] [place] [address], [place] AST [Catalytic activity/Vol] 11 U/L Low 13-39 [facility] Comment on above: Order Comment: No: D o not add to previous draw Performed By: #### 8 [id number] #### [facility] [address] [place] [address], [place] Bilirubin [Mass/Vol] 0.3 mg/dL Normal 0.3-1.0 [facility] Comment on above: Order Comment: No: D o not add to previous draw Performed By: #### 8 [id number] #### [facility] [address] [place] [address], [place] Calcium [Mass/Vol] 8.8 mg/dL Normal 8.6-10.3 [facility] Comment on above: Order Comment: No: D o not add to previous draw Performed By: #### 8 [id number] #### [facility] [address] [place] [address], [place] Chloride [Moles/Vol] 101 mmol/L Normal 98-107 [facility] Comment on above: Order Comment: No: D o not add to previous draw Performed By: #### 8 [id number] #### [facility] [address] [place] [address], [place] CO2 [Moles/Vol] 22 mmol/L Normal 21-31 [facility] Comment on above: Order Comment: No: D o not add to previous draw Performed By: #### 8 [id number] #### [facility] [address] [place] [address], [place] Creatinine [Mass/Vol] 3.38 mg/dL High 0.70-1.30 [facility] [facility] Comment on above: Order Comment: No: D o not add to previous draw Performed By: #### 8 [id number] #### [facility] [address] [place] [address], [place] eGFR- 23 ml/min/1.73sq m Abnormal >60 [facility] Comment on above: Order Comment: No: D o not add to previous draw Performed By: #### 8 [id number] #### [facility] [address] [place] [address], [place] eGFR- non- 19 ml/min/1.73sq m Abnormal >60 [facility] Comment on above: Order Comment: No: D o not add to previous draw Performed By: #### 8 [id number] #### [facility] [address] [place] [address], [place] Glucose [Mass/Vol] 324 mg/dL High 70-100 [facility] Comment on above: Order Comment: No: D o not add to previous draw Performed By: #### 8 [id number] #### [facility] [address] [place] [address], [place] Potassium [Moles/Vol] 4.5 mmol/L Normal 3.5-5.1 [facility] Comment on above: Order Comment: No: D o not add to previous draw Performed By: #### 8 [id number] #### [facility] [address] [place] [address], [place] Protein [Mass/Vol] 6.7 g/dL Normal 6.0-8.3 [facility] Comment on above: Order Comment: No: D o not add to previous draw Performed By: #### 8 [id number] #### [facility] [address] [place] [address], [place] Sodium [Moles/Vol] 131 mmol/L Low 136-145 [facility] Comment on above: Order Comment: No: D o not add to previous draw Performed By: #### 8 [id number] #### [facility] [address] Urea nitrogen [Mass/Vol] 27 mg/dL High 7-25 [facility] Comment on above: Order Comment: No: D o not add to previous draw Performed By: #### 8 [id number] #### [facility] [address] CREATININE URINE RANDOMon Creatinine (U) [Mass/Vol] 101.0 mg/dL Normal [facility] Comment on above: Order Comment: No: D o not add to previous draw Result Comment: Ther e are no established reference values for random urine specimens Performed By: #### 8 [id number] #### [facility] [address] [facility] [address] FLUID CELL COUNTon 1 Basophils/100 WBC (Bld) 1 % Normal [facility] Comment on above: Performed By: #### 8 [id number] #### [facility] [address] [facility] [place] [address], [facility] Eosinophils/100 WBC (Bld) 11 % Normal [facility] Comment on above: Performed By: #### 8 [id number] #### [facility] [address] [facility] [place] [address], [facility] Lymphocytes/100 WBC (Bld) 49 % Normal [facility] Comment on above: Performed By: #### 8 [id number] #### [facility] [address] [facility] [place] [address], [facility] MESOTHELIAL 12 % Normal [facility] Comment on above: Performed By: #### 8 [id number] #### [facility] [address] [place] [address], [facility] OTHER F1 Diff done by cytospin Normal [facility] Comment on above: Performed By: #### 8 [id number] #### [facility] [address] [place] [address], [facility] OTHER F3 Checked by Evelyn Rodriguez M.D. Normal [facility] Comment on above: Result Comment: Resu lt changed by VHERR on 07/15/2020 13:33. The previous value was Preliminary report; verified report to follow. Performed By: #### 8 [id number] #### [facility] [address] [place] [address], [facility] RBC 701[address] RBC/uL Normal [facility] Comment on above: Performed By: #### 8 [id number] #### [facility] [address] [place] [address], [facility] SEGS 27 % Normal [facility] Comment on above: Performed By: #### 8 [id number] #### [facility] [address] [place] [address], [facility] SOURCE Thoracentesis Normal [facility] Comment on above: Performed By: #### 8 [id number] #### [facility] [address] [place] [address], [facility] TOTAL VOLUME 1L Normal [facility] Comment on above: Performed By: #### 8 [id number] #### [facility] [address] [place] [address], [facility] WBC 1762 WBC/uL Normal [facility] Comment on above: Result Comment: Some reference interval(s) and other method performance specifications have not been established for analytes on this body fluid. The test result must be integrated into the clinical context for interpretation. Performed By: #### 8 [id number] #### [facility] [address] [place] [address], [facility] GLUCOSE FLUID MISCon 03-18-2 021 Glucose [Mass/Vol] 326 mg/dL Normal [facility] Comment on above: Result Comment: The reference range and other method performance specifications have not been established for this test in fluids. the test result should be integrated into the clinical context for interpretation. Performed By: #### 3 1944 #### [facility] [address] HEMOGLOBIN A1Con 07-14-2020 Glucose [Moles/Vol] 295 mmol/L Normal [facility] Comment on above: Order Comment: Left Peural Effusion Performed By: #### 3 8 #### [facility] [address] HbA1c (Bld) [Mass fraction] 11.9 % High 4.0-6.0 [facility] Comment on above: Order Comment: Left Peural Effusion Performed By: #### 3 8 #### [facility] [address] HEPATITIS B SURFACE ANTIGEN QUALon 07-14-2020 HEP B SURF AG QUAL Non-Reactive Normal NONREACTIVE [facility] Comment on above: Order Comment: No: D o not add to previous draw Performed By: #### 3 1943 #### [facility] [address] [facility] [address], [facility] HEPATITIS C ANTIBODYon 07-14 ANTI-HCV Non-Reactive Normal NONREACTIVE [facility] Comment on above: Order Comment: No: D o not add to previous draw Performed By: #### 3 1943 #### [facility] [address] [facility] [place] [address], [facility] LDH BLOODon 07-14-2020 LDH 176 Units/L Normal 140-271 [facility] Comment on above: Order Comment: Left Peural Effusion Performed By: #### 3 8 #### [facility] [address] [place] [address], [facility] LDH 133 Units/L Low 140-271 [facility] Comment on above: Order Comment: No: D o not add to previous draw Performed By: #### 8 [id number] #### [facility] [address] [place] [address], [facility] LDH FLUIDon 07-14-2020 LDH 212 Units/L Normal [facility] Comment on above: Result Comment: The reference range and other method performance specifications have not been established for this test in fluids. the test result should be integrated into the clinical context for interpretation. Performed By: #### 3 1944 #### [facility] [address] [place] [address], [facility] LIPID PROFILEon 07-14-2020 Cholesterol [Mass/Vol] 95 mg/dL Low 120-200 [facility] Comment on above: Order Comment: No: D o not add to previous draw Result Comment: CHOL ESTEROL REFERENCE RANGE: 20 YEARS AND OLDER CARDIOVASCULAR RISK Less than 200 mg/dl Low Risk 200 to 239 mg/dl Borderline Risk 240 mg/dl and greater High Risk Performed By: #### 8 [id number] #### [facility] [address] [facility] [place] [address], [facility] Cholesterol in HDL [Mass/Vol] 36 mg/dL Normal 23-92 [facility] Comment on above: Order Comment: No: D o not add to previous draw Result Comment: Slig ht variation in normal range could be due to gender and/or age. HDL CHOLESTEROL REFERENCE RANGE: 20 years and older Cardiovascular Risk > or =60 mg/dL Desirable 40 TO 59 mg/dL Low Risk <40 mg/dL High Risk Performed By: #### 8 [id number] #### [facility] [address] [place] [address], [facility] Cholesterol in LDL [Mass/Vol] 37 mg/dL Normal 0-130 [facility] Comment on above: Order Comment: No: D o not add to previous draw Result Comment: LDL IS A CALCULATION LDL IS ONLY VALID IF THE TRIG IS LESS THAN 400. Performed By: #### 8 [id number] #### [facility] [address] [place] [address], [place] Cholesterol.total/C holesterol in HDL [Mass ratio] 2.6 {ratio} Normal 0.0-4.5 [facility] Comment on above: Order Comment: No: D o not add to previous draw Performed By: #### 8 [id number] #### [facility] [address] [place] [address], [facility] NON-HDL CHOLESTEROL 59 mg/dL Normal [facility] Comment on above: Order Comment: No: D o not add to previous draw Performed By: #### 8 [id number] #### [facility] [address] [place] [address], [facility] Triglyceride [Mass/Vol] 109 mg/dL Normal 40-149 [facility] Comment on above: Order Comment: No: D o not add to previous draw Result Comment: TRIG LYCERIDE REFERENCE RANGE: 20 YEARS AND OLDER CARDIOVASCULAR RISK LESS THAN 150 mg/dl LOW RISK 150 TO 199 mg/dl BORDERLINE RISK 200 mg/dl AND GREATER HIGH RISK Performed By: #### 8 [id number] #### [facility] [address] [facility] [place] [address], [facility] VLDL CHOL 22 mg/dL Normal 0-40 [facility] Comment on above: Order Comment: No: D o not add to previous draw Performed By: #### 8 [id number] #### [facility] [address] [facility] [place] [address], [facility] MAGNESIUM BLOODon 07-14-2020 Magnesium [Mass/Vol] 2.1 mg/dL Normal 1.9-2.7 [facility] Comment on above: Order Comment: No: D o not add to previous draw Performed By: #### 8 [id number] #### [facility] [address] [place] [address], [facility] Magnesium [Mass/Vol] 2.0 mg/dL Normal 1.9-2.7 [facility] Comment on above: Performed By: #### 8 [id number] #### [facility] [address] [place] [address], [facility] PHOSPHORUS BLOODon Phosphate [Mass/Vol] 4.1 mg/dL Normal 2.5-5.0 [facility] Comment on above: Order Comment: No: D o not add to previous draw Performed By: #### 8 [id number] #### [facility] [address] [place] [address], [place] Phosphate [Mass/Vol] 4.0 mg/dL Normal 2.5-5.0 [facility] Comment on above: Performed By: #### 8 [id number] #### [facility] [address] [place] [address], [place] POC GLUCOSE LABon 07-14-2020 Glucose [Mass/Vol] 180 mg/dL High 70-100 [facility] Comment on above: Performed By: #### 8 [id number] ####[facility] [place] [address], [place] Glucose [Mass/Vol] 198 mg/dL High 70-100 [facility] Comment on above: Performed By: #### 5 7307, 81454 #### [facility] [address] [place] [address], [place] Glucose [Mass/Vol] 265 mg/dL High 70-100 [facility] Comment on above: Performed By: #### 8 [id number] #### [facility] [address] [place] [address], [place] Glucose [Mass/Vol] 305 mg/dL High 70-100 [facility] Comment on above: Performed By: #### 5 7307, 09290 #### [facility] [address] [place] [address], [place] Glucose [Mass/Vol] 301 mg/dL High 70-100 [facility] Comment on above: Performed By: #### 5 0103 #### [facility] [address] [place] [address], [place] PORTABLE CHEST 1 VIEWon 06-27 PORTABLE CHEST 1 VIEW [facility] Department of Radiology [address] [place] [address] Patient Name: RASHARD LYMAN : 1960 Sex: M Age: Race: White Pt. Location: [id number] Patient Status: I Ordered Date: 07/14/2020 1:40:00 [...] above Electronically signed: Patricia Damon. Transcribed by: [email or web address], User Resident: Electronically Signed by: PATRICIA DAMON @ 07/14/2020 03:24 PM Normal [facility] Comment on above: Order Comment: Evalu ate for Pneumothorax PORTABLE CHEST 1 VIEW [facility] Department of Radiology [address] [place] [id number] Patient Name: RASHARD LYMAN : 1960 Sex: M Age: Race: White Pt. Location: [id number] Patient Status: I Ordered Date: 07/13/2020 11:35:00 [...] reports Electronically signed: Valdemar Foster. Transcribed by: [email or web address], User Resident: SY [email or web address] Electronically Signed by: VALDEMAR FOSTER @ 07/14/2020 06:31 AM I personally read this/these film(s) with this resident Normal [facility] Comment on above: Order Comment: evalu ate for Effusion PROTEIN ELECT [place] 07-14-2020 Protein [Mass/Vol] 6.0 g/dL Normal 6.0-8.3 [facility] Comment on above: Performed By: #### 3 0318 #### [facility] [address] [facility] [place] [address], [facility] PROTEIN ELECT Normal [facility] Comment on above: Result Comment: Decr eased albumin and elevated alpha 1 and 2 suggests acute inflammation. Performed By: #### 3 0318 #### [facility] [address] [facility] [place] [address], [facility] PROTEIN ELECT URon 1 PROTEIN ELECT Urine protein electrophoresis suggests a nonselective nephropathy. Normal [facility] Comment on above: Performed By: #### 3 1944 #### [facility] [address] [place] [address], [facility] PROTEIN TOTAL BLOODon 2020 Protein [Mass/Vol] 6.7 g/dL Normal 6.0-8.3 [facility] Comment on above: Order Comment: Left Peural Effusion Performed By: #### 3 0318 #### [facility] [address] [facility] [place] [address], [facility] PROTHROMBIN TIMEon 1 INR Coag (PPP) [Relative time] 1.12 {INR} Normal 0.91-1.16 [facility] Comment on above: Order Comment: No: [...] CHEST 1995;[id number]. Performed By: #### 5 7307, [id number] #### [facility] [address] [place] [address], [facility] PT Coag (PPP) [Time] 14.4 s Normal 12.3-14.8 [facility] Comment on above: Order Comment: No: D o not add to previous draw Result Comment: ALL RESULTS MUST BE INTERPRETED WITH RESPECT TO BLOOD DRAWING ARTIFACT OR DILUTION ERROR OF ANTICOAGULANT AT THE TIME OF SAMPLING. Performed By: #### 5 7307, [id number] #### [facility] [address] [place] [address], [facility] SEDIMENTATION RATEon 021 SED RATE 32 mm/hr High 0-10 [facility] Comment on above: Performed By: #### 8 [id number] #### [facility] [address] [place] [address], [facility] SODIUM URINE RANDOMon 2020 Sodium (U) [Moles/Vol] 59 mmol/L Normal [facility] Comment on above: Order Comment: No: D o not add to previous draw Result Comment: Ther e are no established reference values for random urine specimens Performed By: #### 8 [id number] #### [facility] [address] [place] [address], [place] T PROT FLUIDon 07-14-2020 Protein [Mass/Vol] 3.6 g/dL Normal [facility] Comment on above: Result Comment: The reference range and other method performance specifications have not been established for this test in fluids. the test result should be integrated into the clinical context for interpretation. Performed By: #### 3 1944 #### [facility] [address] [place] [address], [place] T PROT UR Loretta 07-14-2020 U TOTAL PROTEIN 859.0 mg/dL Normal [facility] Comment on above: Order Comment: No: D o not add to previous draw Result Comment: Ther e are no established reference values for random urine specimens Performed By: #### 8 [id number] #### [facility] [address] [facility] [place] [address], [facility] Performed By: #### 3 1944 #### [facility] [address] [facility] [place] [address], [facility] TROPONIN-Ion 07-14-2020 Troponin I.cardiac [Mass/Vol] 0.09 ng/mL High 0.00-0.04 [facility] Comment on above: Order Comment: No: D o not add to previous draw Result Comment: REFE RENCE RANGES: 0.00 - 0.04 ng/ml NORMAL 0.05 - 0.50 ng/ml INDETERMINATE > 0.50 ng/ml CONSISTENT WITH AN M.I. Performed By: #### 8 [id number] #### [facility] [address] [place] [address], [facility] Troponin I.cardiac [Mass/Vol] 0.07 ng/mL High 0.00-0.04 [facility] Comment on above: Order Comment: No: D o not add to previous draw Result Comment: REFE RENCE RANGES: 0.00 - 0.04 ng/ml NORMAL 0.05 - 0.50 ng/ml INDETERMINATE > 0.50 ng/ml CONSISTENT WITH AN M.I. Performed By: #### 8 [id number] #### [facility] [address] [facility] [place] [address], [facility] TSH3on 07-14-2020 TSH 3RD GENERATION 3.28 uIU/mL Normal 0.34-5.60 [facility] Comment on above: Order Comment: No: D o not add to previous draw Performed By: #### 8 [id number] #### [facility] [address] [facility] [place] [address], [facility] URIC ACID BLOODon 07-14-2020 Urate [Mass/Vol] 7.1 mg/dL Normal 4.4-7.6 [facility] Comment on above: Performed By: #### 8 [id number] #### [facility] [address] [place] [address], [place] URINALYSIS REFLEXon 07-15-19 21 Appearance (U) SL CLOUDY Abnormal CLEAR [facility] Comment on above: Order Comment: Left Peural Effusion Performed By: #### 3 0318 #### [facility] [address] [place] [address], [place] Bilirubin Ql (U) Negative Normal NEGATIVE [facility] Comment on above: Order Comment: Left Peural Effusion Performed By: #### 3 0318 #### [facility] [address] [place] [address], [place] Color (U) YELLOW Normal YELLOW [facility] Comment on above: Order Comment: Left Peural Effusion Performed By: #### 3 0318 #### [facility] [address] [place] [address], [place] EPIS FEW Normal FEW,OCC,NONE SEEN [facility] Comment on above: Order Comment: Left Peural Effusion Performed By: #### 3 0318 #### [facility] [address] [place] [address], [place] Glucose Ql (U) >=500 Abnormal NEGATIVE [facility] Comment on above: Order Comment: Left Peural Effusion Performed By: #### 3 0318 #### [facility] [address] [place] [address], [place] Hemoglobin Ql (U) TRACE Abnormal NEGATIVE [facility] Comment on above: Order Comment: Left Peural Effusion Performed By: #### 3 0318 #### [facility] [address] [place] [address], [place] KETONE TRACE Abnormal NEGATIVE [facility] Comment on above: Order Comment: Left Peural Effusion Performed By: #### 3 0318 #### [facility] [address] [place] [address], [place] LEUK JACIEL Negative Normal NEGATIVE [facility] Comment on above: Order Comment: Left Peural Effusion Performed By: #### 3 0318 #### [facility] [address] [place] [address], [place] MUCUS THREADS OCC Abnormal NONE SEEN [facility] Comment on above: Order Comment: Left Peural Effusion Performed By: #### 3 0318 #### [facility] [address] [place] [address], [place] Nitrite Ql (U) Negative Normal NEGATIVE [facility] Comment on above: Order Comment: Left Peural Effusion Performed By: #### 3 0318 #### [facility] [address] [place] [address], [place] pH (U) 6.0 [pH] Normal 5.0-8.0 [facility] Comment on above: Order Comment: Left Peural Effusion Performed By: #### 3 0318 #### [facility] [address] [place] [address], [place] Protein Ql (U) >=500 Abnormal NEGATIVE [facility] Comment on above: Order Comment: Left Peural Effusion Performed By: #### 3 0318 #### [facility] [address] [place] [address], [place] RBC 0-2 Abnormal NONE SEEN [facility] Comment on above: Order Comment: Left Peural Effusion Performed By: #### 3 0318 #### [facility] [address] [place] [address], [place] SPEC GRAV 1.017 Normal 1.015-1.020 [facility] Comment on above: Order Comment: Left Peural Effusion Performed By: #### 3 0318 #### [facility] [address] [place] [address], [place] WBC UA 3-5 Abnormal NONE SEEN [facility] Comment on above: Order Comment: Left Peural Effusion Performed By: #### 3 0318 #### [facility] [address] Vital Signs Date Time Vital Sign Value Performing Clinician Facility 03-21-2021 15:40-0500 Body height 193.04 cm Kike Pollack Other [facility] Other 03-21-2021 15:40-0500 Body mass index (BMI) [Ratio] 39.02 kg/m2 Kike Pollack Other [facility] Other 03-21-2021 15:40-0500 Body temperature 97.8 [degF] Kike Pollack Other [facility] Other 03-21-2021 15:40-0500 Body weight 145.42 kg Kike Pollack Other [facility] Other 03-21-2021 15:40-0500 Diastolic blood pressure 84 mm[Hg] Kike Pollack Other [facility] Other 03-21-2021 15:40-0500 Respiratory rate 18 /min Kike Pollack Other [facility] Other 03-21-2021 15:40-0500 SaO2% (BldA) [Mass fraction] 96 % Kike Pollack Other [facility] Other 03-21-2021 15:40-0500 Systolic blood pressure 137 mm[Hg] Kike Gomesangela Other [facility] Other 08-25-2020 12:24-0400 Heart rate 82 /min Jose Juarez Work Phone: [facility] 08-25-2020 12:24-0400 Respiratory rate 20 /min Jose Valone Work Phone: [facility] 08-25-2020 11:17-0400 Body temperature 98.7 [degF] Jose Valone Work Phone: [facility] 08-25-2020 11:17-0400 Diastolic blood pressure 94 mm[Hg] Jose Valone Work Phone: [facility] 08-25-2020 11:17-0400 SaO2% (BldA) [Mass fraction] 96 % Jose Valone Work Phone: [facility] 08-25-2020 11:17-0400 Systolic blood pressure 183 mm[Hg] Jose Valone Work Phone: [facility] 08-25-2020 06:00-0400 Body weight 160.5 kg Jose Valone Work Phone: [facility] 08-19-2020 14:17-0400 Body height 193.04 cm Jose Valone Work Phone: [facility] 08-18-2020 21:22-0400 Body height 193.04 cm Jose Valone Work Phone: [facility] 08-18-2020 21:22-0400 Body mass index (BMI) [Ratio] 43.8 kg/m2 Jose Valone Work Phone: [facility] 08-18-2020 21:22-0400 Body temperature 97.6 [degF] Jose Valone Work Phone: [facility] 08-18-2020 21:22-0400 Body weight 163.3 kg Jose Valone Work Phone: [facility] 08-18-2020 21:22-0400 Diastolic blood pressure 80 mm[Hg] Jose Valone Work Phone: [facility] 08-18-2020 21:22-0400 Heart rate 105 /min Jose Valone Work Phone: [facility] 08-18-2020 21:22-0400 Respiratory rate 18 /min Jose Juarez Work Phone: [facility] 08-18-2020 21:22-0400 SaO2% (BldA) [Mass fraction] 94 % Jose Juarez Work Phone: [facility] 08-18-2020 21:22-0400 Systolic blood pressure 160 mm[Hg] Jose Juarez Work Phone: [facility] Encounters Encounter Date Encounter Type Care Provider Facility Start: 02-27-2023 End: 02-28-2023 ambulatory JUANCARLOS [facility] Start: 09-11-2022 End: 09-12-[address] [facility] Mark Anthony [facility] Facility:[facility] Start: 08-28-2022 End: 08-29-[address] [facility] Mark Anthony [facility] Facility:[facility] Start: 08-24-2022 End: 08-25-[address] JOSE JUAREZ Facility:[facility] Start: 08-20-2022 End: 08-21-[address] JOSE JUAREZ Facility:[facility] Start: 08-19-2022 Encounter for preprocedural cardiovascular examination [facility] Start: 08-19-2022 Encounter for preprocedural laboratory examination [facility] Start: 08-19-2022 Encounter for preprocedural respiratory examination [facility] Start: 08-15-2022 End: 08-16-[address] JOSE [...] Start: 12-11-2021 End: 12-12-2021 ambulatory CHINO Hopson [facility] Facility:[facility]1 Start: 11-30-2021 End: 12-01-[address] CARLOS EDUARDO SU . Facility:[facility] Start: 11-22-2021 End: 11-23-[address] CARLOS EDUARDO SU . Facility:[facility] Start: 11-21-2021 End: 11-22-2021 ambulatory CHINO Mark Anthony [facility] Facility:[facility]1 Start: 11-14-[address] CARLOS EDUARDO SU . Faci lity:[facility]1 Start: 11-13-2021 End: 11-14-2021 ambulatory CHINO Hopson [facility] Facility:[facility]1 Start: 11-07-2021 End: 11-08-2021 ambulatory CHINO Hopson [facility] Facility:[facility]1 Start: 10-31-2021 End: 11-01-2021 ambulatory CHINO Hopson [facility] Facility:[facility]1 Start: 10-24-2021 End: 10-25-2021 ambulatory CHINO Hopson [facility] Facility:[facility]1 Start: 10-17-2021 End: 10-18-2021 ambulatory CHINO Hopson [facility] Facility:[facility]1 Start: 10-09-2021 End: 10-10-2021 ambulatory CHINO Hopson [facility] Facility:[facility]1 Start: 03-21-2021 End: 03-21-2021 ambulatory Kike Pollack Other [facility] Infectious Other Start: 03-21-2021 Office outpatient vi sit 25 minutes Kike Pollack [facility] Start: 10-20-2020 End: 10-21-2020 ambulatory UNKNOWN PROVIDER Facility:[facility] Start: 09-28-2020 End: 09-28-2020 Patient encounter procedure Jose Juarez Work Phone: -Respiratory Therapy Start: 09-06-2020 End: 09-06-2020 Patient encounter procedure Jose Juarez Work Phone: -Electrodiagnostics Start: 08-18-2020 End: 08-25-2020 Evaluation and management of inpatient Jose Juarez Work Phone: -[facility] Start: 07-13-2020 End: 07-22-2020 Evaluation and management of inpatient SAVANNAH REYNOLDS Facility:[facility] Procedures Date Procedure Procedure Detail Performing Clinician Start: 08-20-2020 MR thoracic spine wo con Jose Juarez Work Phone: Start: 08-19-2020 CT abdomen pelvis wo con Jose Juarez Work Phone: Start: 08-19-2020 CT chest wo con Jose Juarez Work Phone: Start: 08-19-2020 Ultrasonography of b ilateral kidneys Jose Juarez Work Phone: Start: 08-19-2020 End: 08-19-2020 Aerobic microbial culture Jose [employer] Work Phone: Start: 08-19-2020 Investigation of tra nsfusion reaction Jose [employer] Work Phone: Start: 08-18-2020 Plain chest X-ray Charl uli Juarez Work Phone: Start: 08-18-2020 Blood culture for ba cteria, including anaerobic screen Jose [employer] Work Phone: Start: 08-18-2020 Respiratory Panel (PCR) Jose [employer] Work Phone: Start: 07-19-2020 DRAINAGE OF L [...] identified in Blood by Culture Blood Culture [facility] Patient referral [facility] Immunizations Immunization Date Immunization Notes Care Provider Fa cility 05-27-2015 influenza, seasonal, injectable Kike Pollack Other [employer] Other 05-27-2015 pneumococcal polysaccharide vaccine, 23 valent Kike Pollack Other [employer] Other Payers Date Payer Category Payer Unknown [id number] 1960 Unknown [id number] 2.16.8 40.1.282520.3.579.2.647 1960 Unknown [id number] 2.16. 840.1.524183.3.579.2.732 1960 Unknown [id number] 2.16.84 0.1.077768.3.579.2.593 1960 Unknown [id number] 2.16.84 0.1.544907.3.579.2.593 1960 Unknown [id number] 2.16.84 0.1.266032.3.579.2.593 1960 Unknown [id number] 2.16.84 0.1.151962.3.579.2.593 1960 Unknown [id number] 2.16.84 0.1.119195.3.579.2.593 1960 Unknown [id number] 2.16.84 0.1.650506.3.579.2.593 1960 Unknown [id number] 2.16.84 0.1.330453.3.579.2.593 1960 Unknown [id number] 2.16.84 0.1.347573.3.579.2.593 1960 Unknown [id number] 2.16.84 0.1.168502.3.579.2.593 1960 Unknown [id number] 2.16.84 0.1.884726.3.579.2.593 1960 Unknown [id number] 2.16.84 0.1.047990.3.579.2.593 1960 Unknown [id number] 2.16.84 0.1.103437.3.579.2.593 1960 Unknown [id number] 2.16.84 0.1.243575.3.579.2.593 1960 Unknown [id number] 2.16.84 0.1.323191.3.579.2.593 1960 Unknown [id number] 2.16.84 0.1.979858.3.579.2.593 1960 Unknown [id number] 2.16.84 0.1.874398.3.579.2.593 1960 Unknown [id number] 2.16.84 0.1.780248.3.579.2.593 1960 Unknown [id number] 2.16.84 0.1.326127.3.579.2.593 1960 Unknown [id number] 2.16.84 0.1.059473.3.579.2.593 1960 Unknown [id number] 2.16.84 0.1.296041.3.579.2.593 1960 Unknown [id number] 2.16.84 0.1.833566.3.579.2.593 1960 Unknown [id number] 2.16.84 0.1.376627.3.579.2.593 1960 Unknown [id number] 2.16.84 0.1.294518.3.579.2.593 1960 Unknown [id number] 2.16.84 0.1.312018.3.579.2.593 1960 Unknown [id number] 2.16.84 0.1.918450.3.579.2.593 1960 Unknown [id number] 2.16.84 0.1.050813.3.579.2.593 1960 Unknown [id number] 2.16.84 0.1.758682.3.579.2.593 1960 Unknown [id number] 2.16.84 0.1.048971.3.579.2.593 1960 Unknown [id number] 2.16.84 0.1.485385.3.579.2.593 1960 Unknown [id number] 2.16.84 0.1.254370.3.579.2.593 1960 Unknown [id number] 2.16.84 0.1.010722.3.579.2.593 1960 Unknown [id number] 2.16.84 0.1.258365.3.579.2.593 1960 Unknown [id number] 2.16.84 0.1.378539.3.579.2.593 1960 Unknown [id number] 2.16.84 0.1.485361.3.579.2.593 1960 Unknown [id number] 2.16.84 0.1.158393.3.579.2.593 1960 Unknown [id number] 2.16.84 0.1.098774.3.579.2.593 1960 Unknown [id number] 2.16.84 0.1.466308.3.579.2.593 1960 Unknown [id number] 2.16.84 0.1.680892.3.579.2.593 1960 Unknown [id number] 2.16.84 0.1.188119.3.579.2.593 1960 Unknown [id number] 2.16.84 0.1.652790.3.579.2.593 1960 Unknown [id number] 2.16.84 0.1.084577.3.579.2.593 1960 Unknown [id number] 2.16.84 0.1.639537.3.579.2.593 1960 Unknown [id number] 2.16.84 0.1.760238.3.579.2.593 1960 Unknown [id number] 2.16.84 0.1.175286.3.579.2.593 1959 Unknown [id number] Medicare Self Pay [id number] Self-pay Self Pay [id number] Social History Date Type Detail Facility Tobacco smoking status NHIS Unknown if ever smoked [facility] Start: 1960 Sex Assigned At Male F [facility] Start: 08-18-2020 Tobacco smoking status NHIS Unknown if ever smoked [facility] Start: 08-22-2020 Tobacco smoking status NHIS Never smoked tobacco (finding) [facility] Sex Assigned At Sex Assigned At [facility] [place] Infectious Other Goals Date Patient Goal Desired Activity /State Functional Status Date Assessment Result Facility 08-25-2020 Functional status Patient at Baseline [facility] Mental Status Date Assessment Result Facility 08-25-2020 Cognitive function Cognitive Sta tus Patient at Baseline [facility] Clinical Notes 07-15-2020 to 08-20-2022 Note [...] authenticated by: PRISCA SANDERSON Date: 2022-08-20 13:00 [facility] 08-15-2022 Note EXAM: XR CHEST 2 V [...] authenticated by: CHINO CABALLERO Date: 2022-08-15 15:06 [facility] 08-01-2022 Note PROCEDURE: XR FOOT L T [...] by: JAMESON SALGUERO Date: 2022-08-01 07:49 [facility] 03-01-2022 Note CONSULTATION CONSULTATION DATE: 03/01/2022 [...] with certain activities 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 [facility] 03-01-2022 Note CONSULTATION PROCEDURE DATE: 03/01/2022 [...] pattern and patient tolerated procedure well. [facility] 12-22-2021 Note PROCEDURE: XR ANKLE LT [...] authenticated by: PRISCA SANDERSON Date: 2021-12-22 10:12 [facility] 12-22-2021 Note PROCEDURE: XR ANKLE LT MIN [...] authenticated by: PRISCA SANDERSON Date: 2021-12-22 10:12 [facility] 12-22-2021 Note PROCEDURE: XR ANKLE LT MIN [...] authenticated by: PRISCA SANDERSON Date: 2021-12-22 10:12 [facility] 12-22-2021 Note PROCEDURE: XR ANKLE LT 2V HISTORY: Pain ; left ankle external fixation application COMPARISON: None. FINDINGS: BONES:3 intraoperative spot fluoroscopic images demonstrate external fixation device surrounding the left ankle. IMPRESSION: External fixation device application. Electronically authenticated by: PRISCA SANDERSON Date: 2021-12-22 10:07 [facility] 12-12-2021 Note PROCEDURE: XR FOOT L T [...] by: PRISCA SANDERSON Date: 2021-12-12 08:04 [facility] 11-30-2021 Note CONSULTATION The patient returns [...] in clinic in three months' time. [facility] 11-22-2021 Note CONSULTATION CONSULTATION DATE: 11/22/2021 [...] to the clinic to receive those. [facility] 11-14-2021 Note PROCEDURE: XR FOOT L [...] by: PRISCA SANDERSON Date: 2021-11-14 15:42 [facility] 11-07-2021 Note PROCEDURE: XR FOOT L [...] authenticated by: JAMESON SALGUERO Date: 2021-11-07 19:28 [facility] 03-21-2021 Evaluation note Encounter Date Diagnosis Assessment [...] takes midodrine as well as stated above. [employer] Other 03-27-2021 NoteMR#: [id number] [facility] Pt. Name: Rashard Lyman Admitted: 07/13/2020 [...] ON DISCHARGE: A (more content not included)...[facility]03-19-2021 NoteMR#: [id number] [facility] Pt. Name: Rashard Lyman Surgery Date: 07/14/2020 Room #: [id number] Date of : 1960 PROCEDURE NOTE ATTENDING: [...] x-ray was ordered. Performed by: Dr. Davis hPam MD Attending: Dr. Nima Wynne MD Electronically Signed by: Nima Wynne MD 07/15/2020 04:23 P Nima Wynne MD I was present for the entire procedure. Date Dict: 07/15/2020/01:32 P/Davis Pham MD Date Trans: 07/15/2020 01:32 P/ [id number] cc: Nima Wynne MD [address] [address] NoteMR#: [id number] [facility] Pt. Name: Rashard Lyman Surgery Date: 07/14/2020 Room #: [id number] Date of : 1960 PROCEDURE NOTE ATTENDING: Nima Wynne MD Procedure: Left sided US guided Thoracentesis Pre-procedure Diagnosis: Left pleural effusion Post-procedure Diagnosis: same as above Prior to Procedure: Informed Consent:The risks, benefits, indications, potential complications, and alternatives were explained to the patient/family and informed consent obtained Attending Staff: Nima Wynne Resident/Fellow/TRAFFIC SUPERVISOR: Davis Pham Indications: Nura Munoz is 60 [...] Wynne MD Date Trans: 07/15/2020 12:53 P/ [id number] [facility] Diagnosis Onset Date Resolution Status Hyperglycemia acute Pneumonia acute Psoriasis acute 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 acute CKD (chronic kidney disease) stage 4, GFR 15-29 ml/min chronic COPD (chronic obstructive pulmonary disease) chronic 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 GERD (gastroesophageal reflux disease) chronic Obesities, morbid chronic Peripheral vascular occlusive disease chronic 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 [facility] Diagnosis Onset Date Resolution Status MARISOL (acute kidney injury) ac stebbins Anemia of renal disease acut e Atelectasis of left lung acu te Fibrothorax acute History of pleural effusion acute Metabolic acidosis acute Pericarditis acute Pleuritic chest pain acute Psoriasis acute 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 acute CKD (chronic kidney disease) stage 4, GFR 15-29 ml/min chronic COPD (chronic obstructive pulmonary disease) chronic 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 GERD (gastroesophageal reflux disease) chronic Hypertension chronic [id number] chronic Obesities, morbid chronic Peripheral vascular occlusive disease chronic Status post amputation of toe of right foot [facility] N[facility]ative - Reported* Type Description [...] HIS LOWER BACK Hospitalization History see above [employer] Other Hospital Discharge instructions Additional Instructions You are scheduled for an outpatient follow up ECHOCARDIOGRAM in 2 weeks at [facility] to re-assess your pericardial effusions on 09/06/2020 [...] knee Educate on high risk fall precautions [facility] Ass[facility]ments No Assessments Information Available [...] 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 GERD (gastroesophageal reflux disease) Hypertension [id number] Obesities, morbid Peripheral vascular occlusive disease Status [...] 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 GERD (gastroesophageal reflux disease) Hypertension [id number] Obesities, morbid Peripheral vascular occlusive disease Status [...] 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 GERD (gastroesophageal reflux disease) Hypertension [id number] Obesities, morbid Peripheral vascular occlusive disease Status post amputation of toe of right foot Summary Purpose Family History No Family History Records Found Additional Source Comments (unrecognized sect ion and content) No Status Records FoundNo Status Records FoundNo Status Records FoundNo Status Records FoundNo Status Records Found INFORMATION SOURCE (unrecogn ized section and content) DATE CREATED AUTHOR 09/11/2020 [facility] DATE CREATED AUTHOR AUTHOR'S ORGANIZ ATION 10/21/2020 [facility] DATE CREATED AUTHOR AUTHOR'S ORGANIZ ATION 08/03/[address] [facility] DATE CREATED AUTHOR AUTHOR'S ORGANIZ ATION 10/05/2022 [facility] DATE CREATED AUTHOR AUTHOR'S ORGANIZ [...] BE BASED ON THE PRIMARY CLINICAL RECORDS. [facility] [employer] [facility]. provides no warranty or guarantee of the accuracy or completeness of information in this document.
--- NOTE | 2023-05-03 13:19 | CA_ITS ---
[facility] Test Date: 2023-05-03 Pat Name: RASHARD TAN Department: Room: - Gender: Male Intelligence Agent: : 1960 Requested By: CHINO ELLIOTT Order Number: [id number] Reading MD: JUDITH PANTOJA Interpretive Statements Monophasic doppler waveforms of the LLE PVR waveforms with normal upstroke, amplitude and dicrotic notch Right: - significant pressure gradient betweent calf and DP cuff - abnormal RAINER - normal TBI Left: - no significant pressure gradient between cuffs - normal RAINER - no TBI Impression: - elevated indices (right calf, right PT) due to calcified, noncompressible arterial ryan, which may underestimate the degree of arterial disease present. - No obvious arterial disease noted in the lower extremities with no hemodynamic impairment in the B/L lower extremities at rest (right RAINER 1.32, left RAINER 1.28) - right TBI, which is not influenced by arterial calcification, is normal. - clinical correlation advised Electronically Signed On 05-05-2023 12:38:05 EST by JUDITH PANTOJA
== END 2023-05-03 12:26 | disposition home or self-care (01) ==
LOC: CARD 12:25
PROVIDERS: PCP Podiatrist Foot & Ankle Surgery; Visit Provider Podiatrist Foot & Ankle Surgery
DX: R09.89 Other specified symptoms and signs involving the circulatory and respiratory systems (principal)
CPT/HCPCS: 93923

== ENCOUNTER 2023-05-15 13:58 | Outpatient (OUT) | payer BC, SELFPAY ==
--- OUTSIDE RECORDS SUMMARY | 2023-05-15 14:05 | XMS_ITS | CCD ---
Author Name Unknown Address [address] [place] [address] Organization [facility] Care Team Providers Care Pattern Weaver Name Role Phone Jose Juarez Primary Care Provider [phone] Eugene Morel Admit Provider Eugene Morel Attending Provider [phone] Gordon Ewing Attending Provider [phone] Gautam Bazan Attending Provider [phone] SAVANNAH REYNOLDS Admitting Unavailable SAVANNAH REYNOLDS Attending Unavailable JOSE JUAREZ Primary Care Unavailable JOSE JUAREZ Referring Unavailable [facility] Procedure Practitioner Unavailab TRISHA Ozuna Surgeon Unavailable NIMA WYNNE Surgeon Unavailable [facility] Procedure Practitioner Unavailab Jose Andres Primary Care Provider Eugene Morel Admit Provider [phone] Gordon Ewing Attending Provider Gautam Bazan Attending Provider Latrice Lehman Attending [...] HIGHLANDER, CHINO Hopson Consulting Unavailable HIGHLANDER, CHINO Hopson Attending Unavailable HIGHLANDER, CHINO D Admitting Unavailable NEFCY, CHINO Vaughn Unavailable VALONE, DR GARCIA Primary Care Unavailable [...] Unavailable BURSIAN, YASMIN Consulting Unavailable HIGHLANDER, CHINO Hopson Admitting Unavailable HIGHLANDER, CHINO Hopson Attending Unavailable HIGHLANDER, CHINO Hopson Consulting Unavailable VALONE, DR GARCIA Primary Care Unavailable SU ., DR CARLOS EDUARDO Carmona Admitting Unavailable SU ., DR CARLOS EDUARDO Carmona Attending Unavailable VALONE, DR GARCIA Primary Care Unavailable HERNANDEZ .MARGIE Unavailable HIGHLANDER, CHINO Hopson Attending Unavailable VALONE, DR GARCIA Primary Care Unavailable HIGHLANDER, CHINO Hopson Admitting Unavailable VALONE, DR GARCIA Primary Care Unavailable HIGHLANDER, CHINO Hopson Attending Unavailable HIGHLANDER, CIHNO Hopson Admitting Unavailable HIGHLANDER, CHINO Hopson Attending Unavailable VALONE, DR GARCIA Primary Care Unavailable HIGHLANDER, CHINO Hopson Admitting Unavailable HIGHLANDER, CHINO Hopson Attending Unavailable VALONE, DR GARCIA Primary Care Unavailable HIGHLANDER, CHINO Hopson Admitting Unavailable HIGHLANDER, CHINO Hopson Admitting Unavailable HIGHLANDER, CHINO Hopson Attending Unavailable VALONE, DR GARCIA Primary Care Unavailable HIGHLANDER, CHINO Hopson Attending Unavailable HIGHLANDER, CHINO Hopson Admitting Unavailable VALONE, DR GARCIA Primary Care Unavailable VALONE, DR GARCIA Primary Care Unavailable HIGHLANDER, CHINO Hopson Attending Unavailable WEST, DR JAMESON Mckeon Consulting Unavailable HIGHLANDER, CHINO Hopson Admitting Unavailable HIGHLANDER, CHINO Hopson Consulting Unavailable VALONE, DR GARCIA Primary Care Unavailable HIGHLANDER, CHINO Hopson Attending Unavailable HIGHLANDER, CHINO Hopson Admitting Unavailable VALONE, [...] HIGHLANDER, PETER D Admitting Unavailable HIGHLANDER, PETER Mark Anthony Attending Unavailable HIGHLANDER, PETER D Admitting Unavailable [...] Care Unavailable HIGHLANDER, CHINO Hopson Attending Unavailable ZIEBER, DR PRISCA Tilley Consulting Unavailable [...] HIGHLANDER, CHINO Hopson Consulting Unavailable JOSEANDER, CHINO D Attending Unavailable VALONE, DR GARCIA Primary Care Unavailable HIGHLANDER, CHINO D Admitting Unavailable HIGHLANDER, CHINO D Attending Unavailable VALONE, DR GARCIA Primary Care Unavailable HIGHLANDER, CHINO Hopson Admitting Unavailable WEST, DR JAMESON Mckeon Consulting Unavailable HIGHLANDER, CHINO Hopson Consulting Unavailable HIGHLANDER, CHINO D Admitting Unavailable HIGHLANDER, CHINO Hopson Consulting Unavailable HIGHLANDER, CHINO D Attending Unavailable VALONE, [...] Admitting Unavailable JUANCARLOS LEHMAN Primary Care Unavailable EARL, CHINO Hopson Referring Unavailable VALONE JRJOSE Referring Unavailable VALONE JRJOSE Primary Care Unavailable EARL, CHINO Hopson Referring Unavailable VALONE JRJOSE Primary Care Unavailable Unavailable Unavailable Unavailable Allergies Allergy Classification Reported Allergen(s) Allergy Type Date of Onset Reaction(s) Facility exenatide (1 source) exenatide Drug Allergy 07-14-19 [facility] Repository NSAIDs (5 sources) celecoxib; Translations: [Celebrex] Drug Allergy 07-14-19 21 Difficulty Breathing [facility] Repository Phenolphthalein (1 source) Phenolphthalein Drug Allergy 07-14-19 21 [facility] Repository (3 sources) celecoxib; Translations: [celecoxib] Drug Allergy 07-21-19 17 Difficulty Breathing, bad for kidney [facility] Repository (2 sources) Aspirin; Translations: [ASPIRIN] Drug Allergy 07-21-19 17 bad for kidney [facility] Repository (1 source) Amoxicillin Drug Allergy 07-09-[address] [facility] Repository (1 source) celecoxib Drug Allergy 07-09-[address] [facility] Repository (1 source) exenatide Drug Allergy 07-09-[address] [facility] Repository (1 source) Phenolphthalein Drug Allergy 07-09-[address] [facility] Repository (1 source) exenatide; Translations: [EXENATIDE] Drug Allergy 07-21-19 [facility] Repository (1 source) HYLAN G-F 20; Translations: [HYLAN G-F 20] Propensity to adverse reactions to drug (disorder) 07-21-19 [facility] Repository Medications Current Medications Medication Drug Class(es) [...] Linezolid Active 600 MG Oral Twice daily January 05, 2019 2:10pm Magnesium (1 source) [...] tablet Discontinued 1 TAB PO Q6H 24 6 November 12, 2017 11:41am December 31, 2018 [...] [Hyperglycemia, unspecified] Episodic Disorders of lipid metabolism (4 sources) Hyperlipidemia; Translations: [Hyperlipidemia, unspecified] Onset: 1 [...] 3 Chronic Other aftercare (5 sources) Other oysterman (current) drug therapy; Translations: [OTH PRISON CURRENT DRUG THERAPY] Onset: 3 Episodic Other [...] Other aftercare (1 source) long term care social worker (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; Translations: [PRISON CURRENT USE OF INSULIN] Onset: 01-25-2022 Episodic [...] 01-05-2022 Episodic Skin and subcutaneous tissue infections (8 sources) Abscess of face; Translations: [Abscess of neck] Onset: 09-29-2017 Episodic Spondylosis; intervertebral disc disorders; other back problems (4 sources) Muscle spasm of back; Translations: [MUSCLE SPASM OF BACK] Onset: 11-30-2021 Episodic Results Test Name Value Interpretation Reference Range Facility BLOOD UREA NITROGENon 2023 Urea nitrogen [Mass/Vol] 44 mg/dL High 5-[address] [facility] Comment on above: Performed By: #### 3 3762-6, 3094-0, PHOTOGRAPHIC EQUIPMENT INSPECTOR, ELEC #### [facility] ([id number]) [address] [place] [address] 50957 #### 19662-7, HA1C #### [facility] ([id number]) [address], [address] [place] [address] CREATININEon 05-06-2023 Creatinine [Mass/Vol] 2.71 mg/dL High 0.70-1.[address] [facility] Comment on above: Result Comment: METH OD TRACEABLE TO IDMS STANDARD Performed By: #### 3 3762-6, 3094-0, PHOTOGRAPHIC EQUIPMENT INSPECTOR, ELEC #### [facility] ([id number]) [address] [place] [address] 95251 #### 64542-9, HA1C #### [facility] ([id number]) [address] [facility] [place] [address] GFR/1.73 sq M.predicted among non-blacks MDRD (S/P/Bld) [Vol rate/Area] 26 mL/min/{1.73_m2} Low >[address] [facility] Comment on above: Result Comment: Reported eGFR is based on the CKD-EPI 2020 equation that does not use a race coefficient. Performed By: #### 3 3762-6, 3094-0, PHOTOGRAPHIC EQUIPMENT INSPECTOR, ELEC #### [facility] ([id number]) [address] [place] [address] 80519 #### 40453-5, HA1C #### [facility] ([id number]) [address], [address] [place] [address] ELECTROLYTESon 05-06-2023 Anion gap [Moles/Vol] 11 mmol/L Normal 5-[address] [facility] Comment on above: Performed By: #### 3 3762-6, 3094-0, PHOTOGRAPHIC EQUIPMENT INSPECTOR, ELEC #### [facility] ([id number]) [address] [place] [address] 475[address] #### 46999-6, HA1C #### [facility] ([id number]) [address], [address] [place] [address] Chloride [Moles/Vol] 101 mmol/L Normal 98-[address] [facility] Comment on above: Performed By: #### 3 3762-6, 3094-0, PHOTOGRAPHIC EQUIPMENT INSPECTOR, ELEC #### [facility] ([id number]) [address] [place] [address] 43222 #### 81906-8, HA1C #### [facility] ([id number]) [address], [address] [place] [address] CO2 [Moles/Vol] 18 mmol/L Low 22-[address] [facility] Comment on above: Performed By: #### 3 3762-6, 3094-0, PHOTOGRAPHIC EQUIPMENT INSPECTOR, ELEC #### [facility] ([id number]) [address] [place] [address] 54459 #### 21941-2, HA1C #### [facility] ([id number]) [address] [facility] [place] [address] Potassium [Moles/Vol] 4.4 mmol/L Normal 3.5-5.[address] [facility] Comment on above: Performed By: #### 3 3762-6, 3094-0, PHOTOGRAPHIC EQUIPMENT INSPECTOR, ELEC #### [facility] ([id number]) [address] [place] [address] 60405 #### 87354-2, HA1C #### [facility] ([id number]) [address] [facility] [facility] [facility], [address] [place] [address] Sodium [Moles/Vol] 130 mmol/L Low 134-146 [facility] Comment on above: Performed By: #### 3 3762-6, 3094-0, PHOTOGRAPHIC EQUIPMENT INSPECTOR, ELEC #### [facility] ([id number]) [address] [place] [address] #### 56902-2, HA1C #### [facility] ([id number]) [address] [facility], [address] [place] [address] HGB A1C (GLYCO-HGB)on 2023 Glucose [Mass/Vol] 260 mg/dL Normal [facility] Comment on above: Performed By: #### 1 988-5, CBCA, BMP, 07935-8 #### [facility] ([id number]) [address] [place] [address] 09959 #### 97888-4 #### [facility] ([id number]) [facility] [facility] [facility] [facility], [address] [place] [address] HbA1c (Bld) [Mass fraction] 10.7 % High 4.4-5.[address] [facility] Comment on above: Result Comment: NOTE ADA Guidelines Result HgbA1c Normal : less than 5.7 % Prediabetes : 5.7 % to 6.4 % Diabetes : > 6.4 % Use with caution in patients with abnormal hemoglobin variants as the half-life of red blood cells and in vivo glycation rates are affected. Performed By: #### 1 988-5, CBCA, BMP, 43239-7 #### [facility] ([id number]) [address] [place] [address] 46249 #### 20804-0 #### [facility] ([id number]) [address] [facility] [facility] [facility], [address] [place] [address] Lipid 1996 panelon 4 Cholesterol [Mass/Vol] 205 mg/dL High 150-[address] [facility] Comment on above: Performed By: #### 3 3762-6, 3094-0, PHOTOGRAPHIC EQUIPMENT INSPECTOR, ELEC #### [facility] ([id number]) [address] [place] [address] 95672 #### 63037-1, HA1C #### [facility] ([id number]) [address] [facility] [place] [address] Cholesterol in HDL [Mass/Vol] 35 mg/dL Low >[address] [facility] Comment on above: Result Comment: HDL <40 mg/dL - High Risk HDL > or = 40mg/dL- Desirable HDL >60 mg/dL - Negative Risk Performed By: #### 3 3762-6, 3094-0, PHOTOGRAPHIC EQUIPMENT INSPECTOR, ELEC #### [facility] ([id number]) [address] [place] [address] 96308 #### 84878-4, HA1C #### [facility] ([id number]) [address] [facility] [place] [address] Cholesterol in LDL [Mass/Vol] 120 mg/dL Normal <[address] [facility] Comment on above: Result Comment: LDL <100 mg/dL - Desirable LDL >160 mg/dL - High Risk Performed By: #### 3 3762-6, 3094-0, PHOTOGRAPHIC EQUIPMENT INSPECTOR, ELEC #### [facility] ([id number]) [address] [place] [address] 27290 #### 23801-1, HA1C #### [facility] ([id number]) [address] [facility] [place] [address] Cholesterol in VLDL [Mass/Vol] 50 mg/dL High 0-[address] [facility] Comment on above: Performed By: #### 3 3762-6, 3094-0, PHOTOGRAPHIC EQUIPMENT INSPECTOR, ELEC #### [facility] ([id number]) [address] [place] [address] 92665 #### 06224-1, HA1C #### [facility] ([id number]) [address] [facility], [address] [place] [address] CHOLESTEROL:HDL 5.9 High 1.0-5.[address] [facility] Comment on above: Performed By: #### 3 3762-6, 3094-0, PHOTOGRAPHIC EQUIPMENT INSPECTOR, ELEC #### [facility] ([id number]) [address] [place] [address] 46092 #### 97268-8, HA1C #### [facility] ([id number]) [address] [facility] [place] [address] Triglyceride [Mass/Vol] 248 mg/dL High 27-[address] [facility] Comment on above: Performed By: #### 3 3762-6, 3094-0, PHOTOGRAPHIC EQUIPMENT INSPECTOR, ELEC #### [facility] ([id number]) [address] [place] [address] 40068 #### 76900-8, HA1C #### [facility] ([id number]) [address], [address] [place] [address] MICROALBUMIN - ALBUMIN:CREAT ININE URINE RATIOon 05-06-2023 ALB/CREAT RATIO 2747.0 mg/g creat High 0.0-30.0 [facility] Comment on above: Performed By: #### 1 988-5, CBCA, BMP, 15166-9 #### [facility] ([id number]) [address] [place] [address] 75092 #### 47450-4 #### [facility] ([id number]) [address], [address] [place] [address] Albumin DL <= 20 mg/L (U) [Mass/Vol] 195.2 mg/dL High 0.0-1.[address] [facility] Comment on above: Performed By: #### 1 988-5, CBCA, BMP, 84378-8 #### [facility] ([id number]) [address] [place] [address] 26148 #### 01567-2 #### [facility] ([id number]) [address], [address] [place] [address] URINE CREAT 71.06 mg/dL Normal [facility] Comment on above: Performed By: #### 1 988-5, CBCA, BMP, 46948-7 #### [facility] ([id number]) [address] [place] [address] 50872 #### 10959-8 #### [facility] ([id number]) [address], [address] [place] [address] Natriuretic peptide.B prohor adrianne N-Terminal [Mass/Vol]on 05-06-2023 NT Pro BNP See Below Normal [facility] Comment on above: Result Comment: NOTE TEST RESULT FLAG UNIT REF.RANGE ---- PRO B Natr Peptide 314 H pg/mL <125 Test Performed By: [facility] [address] [place] [address] Ball Points Inspector: Tyler Valle III, M.D. CLIA #[id number] Performed By: #### 1 988-5, CBCA, BMP, 27094-4 #### [facility] ([id number]) [address] [place] [address] 98238 #### 73574-1 #### [facility] ([id number]) [address] [place] [address], [address] [place] [address] URINALYSISon 05-06-2023 Bilirubin Ql (U) Negative Normal NEG [facility] Comment on above: Performed By: #### U A #### [facility] ([id number]) [address] [place] [address] BLOOD/HGB Trace Abnormal NEG [facility] Comment on above: Performed By: #### U A #### [facility] ([id number]) [address] [place] [address] 07782 Color (U) YELLOW Normal YELLOW [facility] Comment on above: Performed By: #### U A #### [facility] ([id number]) [address] [place] [address] 81707 Glucose Ql (U) >[address] [facility] Comment on above: Performed By: #### U A #### [facility] ([id number]) [address] [place] [address] 58715 Ketones Ql (U) Negative Normal NEG [facility] Comment on above: Performed By: #### U A #### [facility] ([id number]) [address] [place] [address], [place] [address] Leukocyte esterase Test strip Ql (U) Negative Normal NEG [facility] Comment on above: Result Comment: HIGH CONCENTRATIONS OF GLUCOSE MAY DECREASE THE REACTIVITY OF THE DIPSTICK LEUKOCYTE TEST PAD. Performed By: #### U A #### [facility] ([id number]) [address] [place] [address], [place] [address] MUCOUS PRESENT Abnormal NONE [facility] Comment on above: Performed By: #### U A #### [facility] ([id number]) [address] [place] [address] [place] [address] Nitrite Ql (U) Positive Abnormal NEG [facility] Comment on above: Performed By: #### U A #### [facility] ([id number]) [address] [place] [address] 31262 pH (U) 6.0 [pH] Normal 5.0-8.[address] [facility] Comment on above: Performed By: #### U A #### [facility] ([id number]) [address] [place] [address] [place] [address] Protein Ql (U) >[address] [facility] Comment on above: Performed By: #### U A #### [facility] ([id number]) [address] [place] [address] [place] [address] R.B.CELLS 5 /hpf Normal 0-[address] [facility] Comment on above: Performed By: #### U A #### [facility] ([id number]) [address] [place] [address] [place] [address] Specific gravity (U) [Rel density] 1.015 Normal 1.003-1.[address] [facility] Comment on above: Performed By: #### U A #### [facility] ([id number]) [address] [place] [address] 29992 SQUAMOUS EPITHELIUM 4 /hpf Normal 0-5 [facility] Comment on above: Performed By: #### U A #### [facility] ([id number]) [address] [place] [address] 76720 TURBIDITY HAZY Abnormal CLEAR [facility] Comment on above: Performed By: #### U A #### [facility] ([id number]) [address] [place] [address] 36926 Urobilinogen Qn (U) 0.2 {Chaya'U}/dL Normal <1.[address] [facility] Comment on above: Performed By: #### U A #### [facility] ([id number]) [address] [place] [address] 36913 W.B.CELLS >100 High 0-[address] [facility] Comment on above: Performed By: #### U A #### [facility] ([id number]) [address] [place] [address] 48271 URINE CULTUREon 05-06-2023 Bacteria identified Cx Nom (U) SPECIMEN NOTES URINE RECEIVED WITHOUT PRESERVATIVE CULTURE RESULTS MULTIPLE SPECIES PRESENT. PROBABLE COLLECTION CONTAMINATION. SUGGEST REPEAT SPECIMEN. URINE RECEIVED WITHOUT PRESERVATIVE-DELAYS IN TRANSPORT MAY AFFECT RESULTS.INTERPRET WITH CAUTION AND CLINICAL CORRELATION IS RECOMMENDED. Normal [facility] Comment on above: Performed By: #### 1 988-5, CBCA, BMP, 68036-5 #### [facility] ([id number]) [address] [place] [address] 39093 #### 53508-1 #### [facility] ([id number]) [address] [facility] [place] [address] BASIC METABOLIC PANLon 04-19 Anion gap [Moles/Vol] 6 mmol/L Normal 5-[address] [facility] Comment on above: Performed By: #### 1 988-5, CBCA, BMP, 15553-0 #### [facility] ([id number]) [address] [place] [address] 68604 #### 33104-8 #### [facility] ([id number]) [address], [address] [place] [address] Calcium [Mass/Vol] 8.6 mg/dL Normal 8.5-10.5 [facility] Comment on above: Performed By: #### 1 988-5, CBCA, BMP, 21152-7 #### [facility] ([id number]) [address] [place] [address] 22269 #### 43008-9 #### [facility] ([id number]) [address], [address] [place] [address] Chloride [Moles/Vol] 101 mmol/L Normal 98-[address] [facility] Comment on above: Performed By: #### 1 988-5, CBCA, BMP, 98965-4 #### [facility] ([id number]) [address] [place] [address] 28335 #### 37811-1 #### [facility] ([id number]) [address], [address] [place] [address] CO2 [Moles/Vol] 19 mmol/L Low 22-[address] [facility] Comment on above: Performed By: #### 1 988-5, CBCA, BMP, 50545-6 #### [facility] ([id number]) [address] [place] [address] 02295 #### 26889-7 #### [facility] ([id number]) [address], [address] [place] [address] Creatinine [Mass/Vol] 2.57 mg/dL High 0.70-1.[address] [facility] Comment on above: Result Comment: METH OD TRACEABLE TO IDMS STANDARD Performed By: #### 1 988-5, CBCA, BMP, 81435-8 #### [facility] ([id number]) [address] [place] [address] 87812 #### 25494-9 #### [facility] ([id number]) [address], [address] [place] [address] GFR/1.73 sq M.predicted among non-blacks MDRD (S/P/Bld) [Vol rate/Area] 27 mL/min/{1.73_m2} Low >[address] [facility] Comment on above: Result Comment: Reported eGFR is based on the CKD-EPI 2020 equation that does not use a race coefficient. Performed By: #### 1 988-5, CBCA, BMP, 39335-8 #### [facility] ([id number]) [address] [place] [address] 54926 #### 89245-1 #### [facility] ([id number]) [address] [facility] [place] [address] Glucose [Mass/Vol] 377 mg/dL High 65-99 [facility] Comment on above: Performed By: #### 1 988-5, CBCA, BMP, 01630-6 #### [facility] ([id number]) [address] [place] [address] 95214 #### 06168-7 #### [facility] ([id number]) [address] [place] [address] Potassium [Moles/Vol] 4.2 mmol/L Normal 3.5-5.[address] [facility] Comment on above: Performed By: #### 1 988-5, CBCA, BMP, 76425-3 #### [facility] ([id number]) [address] [place] [address] 97987 #### 12485-3 #### [facility] ([id number]) [address] [place] [address], [address] [place] [address] Sodium [Moles/Vol] 126 mmol/L Low 134-146 [facility] Comment on above: Performed By: #### 1 988-5, CBCA, BMP, 25148-5 #### [facility] ([id number]) [address] [place] [address] 94967 #### 25314-3 #### [facility] ([id number]) [address] [place] [address], [address] [place] [address] Urea nitrogen [Mass/Vol] 30 mg/dL High 5-[address] [facility] Comment on above: Performed By: #### 1 988-5, CBCA, BMP, 06845-1 #### [facility] ([id number]) [address] [place] [address] 44697 #### 47727-5 #### [facility] ([id number]) [address] [place] [address], [address] [place] [address] 18233 CBC AND AUTO DIFFon 12-22-20 23 ABSOLUTE BASOPHIL 0.1 X10E9/L Normal 0.0-0.2 [facility] Comment on above: Performed By: #### 1 988-5, CBCA, BMP, 89009-6 #### [facility] ([id number]) [address] [place] [address] 16787 #### 91012-0 #### [facility] ([id number]) [address] [place] [address], [address] [place] [address] ABSOLUTE NEUTROPHIL 8.8 X10E9/L High 1.5-6.6 [facility] Comment on above: Performed By: #### 1 988-5, CBCA, BMP, 63980-7 #### [facility] ([id number]) [address] [place] [address] #### [id number] #### [facility] ([id number]) [address], [address] [place] [address] Basophils/100 WBC (Bld) 0.5 % Normal [facility] Comment on above: Performed By: #### 1 988-5, CBCA, BMP, 64212-0 #### [facility] ([id number]) [address] [place] [address] #### 87789-9 #### [facility] ([id number]) [address] [facility] [place] [address] Eosinophils (Bld) [#/Vol] 0.3 10*3/uL Normal 0.0-0.[address] [facility] Comment on above: Performed By: #### 1 988-5, CBCA, BMP, 44193-6 #### [facility] ([id number]) [address] [place] [address] #### 01971-1 #### [facility] ([id number]) [address] [facility], [address] [place] [address] Eosinophils/100 WBC (Bld) 2.6 % Normal [facility] Comment on above: Performed By: #### 1 988-5, CBCA, BMP, 70870-9 #### [facility] ([id number]) [address] [place] [address] #### 57364-9 #### [facility] ([id number]) [address] [place] [address] Erythrocyte distribution width (RBC) [Ratio] 15.5 % High 11.5-15.[address] [facility] Comment on above: Performed By: #### 1 988-5, CBCA, BMP, 99261-2 #### [facility] ([id number]) [address] [place] [address] 10586 #### 22352-8 #### [facility] ([id number]) [address], [address] [place] [address] Hematocrit (Bld) [Volume fraction] 36.8 % Low 39-[address] [facility] Comment on above: Performed By: #### 1 988-5, CBCA, BMP, 60644-2 #### [facility] ([id number]) [address] [place] [address] 16865 #### 15866-1 #### [facility] ([id number]) [address], [address] [place] [address] Hemoglobin (Bld) [Mass/Vol] 12.0 g/dL Low 13.0-17.[address] [facility] Comment on above: Performed By: #### 1 988-5, CBCA, BMP, 04110-2 #### [facility] ([id number]) [address] [place] [address] 31884 #### 61197-4 #### [facility] ([id number]) [address], [address] [place] [address] Lymphocytes (Bld) [#/Vol] 1.9 10*3/uL Normal 1.0-3.[address] [facility] Comment on above: Performed By: #### 1 988-5, CBCA, BMP, 02115-1 #### [facility] ([id number]) [address] [place] [address] 22739 #### 81663-5 #### [facility] ([id number]) [address], [address] [place] [address] Lymphocytes/100 WBC (Bld) 15.1 % Normal [facility] Comment on above: Performed By: #### 1 988-5, CBCA, BMP, 40709-3 #### [facility] ([id number]) [address] [place] [address] 62731 #### 98825-2 #### [facility] ([id number]) [address], [address] [place] [address] MCH (RBC) [Entitic mass] 28.2 pg Normal 27-[address] [facility] Comment on above: Performed By: #### 1 988-5, CBCA, BMP, 75240-9 #### [facility] ([id number]) [address] [place] [address] 84888 #### 46641-3 #### [facility] ([id number]) [address], [address] [place] [address] MCHC (RBC) [Mass/Vol] 32.7 g/dL Normal 32-[address] [facility] Comment on above: Performed By: #### 1 988-5, CBCA, BMP, 96175-5 #### [facility] ([id number]) [address] [place] [address] 60791 #### 89472-2 #### [facility] ([id number]) [address], [address] [place] [address] MCV (RBC) [Entitic vol] 86 fL Normal 80-[address] [facility] Comment on above: Performed By: #### 1 988-5, CBCA, BMP, 86196-5 #### [facility] ([id number]) [address] [place] [address] 78553 #### 27597-1 #### [facility] ([id number]) [address], [address] [place] [address] Monocytes (Bld) [#/Vol] 1.4 10*3/uL High 0-0.[address] [facility] Comment on above: Performed By: #### 1 988-5, CBCA, BMP, 04155-5 #### [facility] ([id number]) [address] [place] [address] 22801 #### 36294-2 #### [facility] ([id number]) [address], [address] [place] [address] Monocytes/100 WBC (Bld) 11.2 % Normal [facility] Comment on above: Performed By: #### 1 988-5, CBCA, BMP, 61921-1 #### [facility] ([id number]) [address] [place] [address] 35897 #### 38913-8 #### [facility] ([id number]) [address], [address] [place] [address] Neutrophils/100 WBC (Bld) 70.6 % Normal [facility] Comment on above: Performed By: #### 1 988-5, CBCA, BMP, 91610-6 #### [facility] ([id number]) [address] [place] [address] 76054 #### 42239-8 #### [facility] ([id number]) [address], [address] [place] [address] Platelet mean volume (Bld) [Entitic vol] 7.6 fL Normal 7-[address] [facility] Comment on above: Performed By: #### 1 988-5, CBCA, BMP, 30367-3 #### [facility] ([id number]) [address] [place] [address] 29464 #### 66607-8 #### [facility] ([id number]) [address] [place] [address] Platelets (Bld) [#/Vol] 325 10*3/uL Normal 150-[address] [facility] Comment on above: Performed By: #### 1 988-5, CBCA, BMP, 25746-4 #### [facility] ([id number]) [address] [place] [address] 97257 #### 84746-0 #### [facility] ([id number]) [address], [address] [place] [address] RBC COUNT 4.27 X10E12/L Normal 4.10-5.[address] [facility] Comment on above: Performed By: #### 1 988-5, CBCA, BMP, 44356-6 #### [facility] ([id number]) [address] [place] [address] 28270 #### 17032-8 #### [facility] ([id number]) [address] [place] [address] WBC (Bld) [#/Vol] 12.5 10*3/uL High 4.0-11.0 [facility] Comment on above: Performed By: #### 1 988-5, CBCA, BMP, 73479-7 #### [facility] ([id number]) [address] [place] [address] 03128 #### 74768-4 #### [facility] ([id number]) [address], [address] [place] [address] CRP [Mass/Vol]on 04-19-2023 C REACTIVE PROTEIN 7.8 mg/dL High 0.000-0.744 [facility] Comment on above: Performed By: #### 1 988-5, CBCA, BMP, 38674-3 #### [facility] ([id number]) [address] [place] [address] 67321 #### 52719-7 #### [facility] ([id number]) [address] [place] [address] ESR Photometric method (Bld) [Velocity]on 04-19-2023 ESR, ERYTHROCYTE SEDIMENTATION RATE 115 mm/h High 0-[address] [facility] Comment on above: Performed By: #### 1 988-5, CBCA, BMP, 24320-8 #### [facility] ([id number]) [address] [place] [address] 37219 #### 11419-7 #### [facility] ([id number]) [address] [place] [address], [facility] [address] [place] [address] Natriuretic peptide.B prohor adrianne N-Terminal [Mass/Vol]on 04-19-2023 NT Pro BNP See Below Normal [facility] Comment on above: Result Comment: NOTE TEST RESULT FLAG UNIT REF.RANGE ---- PRO B Natr Peptide 587 H pg/mL <125 Test Performed By: [facility] [address] [place] [address] Ball Points Inspector: Charlotte Hart IIIIA #[id number] Performed By: #### 1 988-5, CBCA, BMP, 18199-7 #### [facility] ([id number]) [address] [place] [address] 59546 #### 42943-2 #### [facility] ([id number]) [address] [place] [address] Basic Metabolic Profon 02-27 Anion gap [Moles/Vol] 11 mmol/L Normal 9-17 [facility] Comment on above: Performed By: #### S ED, CRP, BMP, CDP #### [facility] [address] [place] [address] Nuclear Plant Equipment Operator: Jameson Aaron MD BUN/CRE Ratio 16 Normal 9-20 [facility] Comment on above: Performed By: #### S ED, CRP, BMP, CDP #### [facility] [address] [place] [address] [employer] Equipment Operator: Jameson Aaron MD Calcium [Mass/Vol] 9.4 mg/dL Normal 8.6-10.4 [facility] Comment on above: Performed By: #### S ED, CRP, BMP, CDP #### [facility] [address] [place], [place] [address] [employer] Equipment Operator: Jameson Aaron MD Chloride [Moles/Vol] 98 mmol/L Normal 98-107 [facility] Comment on above: Performed By: #### S HILARIA CRP, BMP, CDP #### [facility] [address] [place] [address] [employer] Plant Equipment Operator: Jameson Aaron MD CO2 [Moles/Vol] 18 mmol/L Low 20-31 [facility] Comment on above: Performed By: #### S EDLACIE, BMP, CDP #### [facility] [address] [place], [place] [address] [employer] Plant [employer] Operator: Jameson Aaron MD Creatinine [Mass/Vol] 2.7 mg/dL High 0.7-1.2 [facility] Comment on above: Performed By: #### S ED CRP, BMP, CDP #### [facility] [address] [place] [address] [employer] Plant Equipment Operator: Jameson Aaron MD GFR/1.73 sq M.predicted among non-blacks MDRD (S/P/Bld) [Vol rate/Area] 26 mL/min/{1.73_m2} Low >60 [facility] Comment on above: Result Comment: These [...] renal tubular secretion. Performed By: #### S ED, CRP, BMP, CDP #### [facility] [address] [place] [address] [employer] Plant Equipment Operator: Jameson Aaron MD Glucose [Mass/Vol] 268 mg/dL High 70-99 [facility] Comment on above: Performed By: #### S ED, CRP, BMP, CDP #### [facility] [address] [place] [address] [employer] Plant Equipment Operator: Jameson Aaron MD Potassium [Moles/Vol] 5.2 mmol/L Normal 3.7-5.3 [facility] Comment on above: Performed By: #### S ED, CRP, BMP, CDP #### [facility] [address] [place] [address] [employer] Plant Equipment Operator: Jameson Aaron MD Sodium [Moles/Vol] 127 mmol/L Low 135-144 [facility] Comment on above: Performed By: #### S ED, CRP, BMP, CDP #### [address] [place] [address] [employer] Plant Equipment Operator: Jameson Aaron MD Urea nitrogen [Mass/Vol] 44 mg/dL High 8-23 [facility] Comment on above: Performed By: #### S ED, CRP, BMP, CDP #### [facility] [address] [place] [address] [employer] Plant Equipment Operator: Jameson Aaron MD C-Reactive Proteinon 023 CRP [Mass/Vol] 131.1 mg/L High 0.0-5.0 [facility] Comment on above: Performed By: #### S ED, CRP, BMP, CDP #### [facility] [address] [place], [facility] [employer] Equipment Operator: Jameson Aaron MD CBC with Diffon 02-27-2023 Abs. Basophil 0.06 k/uL Normal 0.00-0.20 [facility] Comment on above: Performed By: #### S ED, CRP, BMP, CDP #### [facility] [address] [place] [address] [place] [address] [employer] Plant Equipment Operator: Jameson Aaron MD Abs.Imm.Granulocyte 0.11 k/uL Normal 0.00-0.30 [facility] Comment on above: Performed By: #### S ED, CRP, BMP, CDP #### [address] [place] [address] [employer] Plant Equipment Operator: Jameson Aaron MD Abs.Neutrophil (Seg) 6.83 k/uL Normal 1.50-8.10 [facility] Comment on above: Performed By: #### S ED, CRP, BMP, CDP #### [address] [place], [place] [address] [employer] Plant Equipment Operator: Jameson Aaron MD Basophils/100 WBC (Bld) 1 % Normal 0-2 [facility] Comment on above: Performed By: #### S ED, CRP, BMP, CDP #### [address] [place] [address] [employer] Plant Equipment Operator: Jameson Aaron MD Eosinophils (Bld) [#/Vol] 0.22 10*3/uL Normal 0.00-0.44 [facility] Comment on above: Performed By: #### S ED, CRP, BMP, CDP #### [address] [place], [place] [address] [employer] Plant Equipment Operator: Jameson Aaron MD Eosinophils/100 WBC (Bld) 2 % Normal 1-4 [facility] Comment on above: Performed By: #### S ED, CRP, BMP, CDP #### [address] [place], [place] [address] [employer] Plant Equipment Operator: Jameson Aaron MD Erythrocyte distribution width (RBC) [Ratio] 14.6 % High 11.8-14.4 [facility] Comment on above: Performed By: #### S ED, CRP, BMP, CDP #### [facility] [address] [place] [address] [employer] Plant Equipment Operator: Jameson Aaron MD Hematocrit (Bld) [Volume fraction] 41.9 % Normal 40.7-50.3 [facility] Comment on above: Performed By: #### S ED, CRP, BMP, CDP #### [facility] [address] [place] [address] [employer] Plant Equipment Operator: Jameson Aaron MD Hemoglobin (Bld) [Mass/Vol] 13.2 g/dL Normal 13.0-17.0 [facility] Comment on above: Performed By: #### S ED, CRP, BMP, CDP #### [facility] [address] [place], [place] [address] [employer] Plant Equipment Operator: Jameson Aaron MD Immature granulocytes/100 WBC (Bld) 1 % High 0 [facility] Comment on above: Performed By: #### S ED, CRP, BMP, CDP #### [facility] [address] [place] [address] [employer] Plant Equipment Operator: Jameson Aaron MD Lymphocytes (Bld) [#/Vol] 1.83 10*3/uL Normal 1.10-3.70 [facility] Comment on above: Performed By: #### S ED, CRP, BMP, CDP #### [facility] [address] [place] [address] [employer] Plant Equipment Operator: Jameson Aaron MD Lymphocytes/100 WBC (Bld) 18 % Low 24-43 [facility] Comment on above: Performed By: #### S ED, CRP, BMP, CDP #### [facility] [address] [place] [address] [employer] Plant Equipment Operator: Jameson Aaron MD MCH (RBC) [Entitic mass] 28.2 pg Normal 25.2-33.5 [facility] Comment on above: Performed By: #### S ED, CRP, BMP, CDP #### [facility] [address] [place], [place] [address] [employer] Plant Equipment Operator: Jameson Aaron MD MCHC (RBC) [Mass/Vol] 31.5 g/dL Normal 28.4-34.8 [facility] Comment on above: Performed By: #### S ED, CRP, BMP, CDP #### [facility] [address] [place], [place] [address] [employer] Equipment Operator: Jameson Aaron MD MCV (RBC) [Entitic vol] 89.5 fL Normal 82.6-102.9 [facility] Comment on above: Performed By: #### S ED, CRP, BMP, CDP #### [address] [place], [place] [address] [employer] Plant Equipment Operator: Jameson Aaron MD Monocytes (Bld) [#/Vol] 1.42 10*3/uL High 0.10-1.20 [facility] Comment on above: Performed By: #### S ED, CRP, BMP, CDP #### [address] [place], [place] [address] [employer] Plant Equipment Operator: Jameson Aaron MD Monocytes/100 WBC (Bld) 14 % High 3-12 [facility] Comment on above: Performed By: #### S ED, CRP, BMP, CDP #### [facility] [address] [place], [facility] [employer] Plant Equipment Operator: Jameson Aaron MD Neutrophil (Seg) 64 % Normal 36-65 [facility] Comment on above: Performed By: #### S ED, CRP, BMP, CDP #### [facility] [address] [place], [facility] [employer] Plant Equipment Operator: Jameson Aaron MD NRBC Automated 0.0 per 100 WBC Normal 0.0 [facility] Comment on above: Performed By: #### S ED, CRP, BMP, CDP #### [facility] [address] [place], [place] [address] [employer] Plant Equipment Operator: Jameson Aaron MD Platelet mean volume (Bld) [Entitic vol] 9.4 fL Normal 8.1-13.5 [facility] Comment on above: Performed By: #### S ED, CRP, BMP, CDP #### [address] [place] [address] [employer] Plant Equipment Operator: Jameson Aaron MD Platelets (Bld) [#/Vol] 266 10*3/uL Normal 138-453 [facility] Comment on above: Performed By: #### S ED, CRP, BMP, CDP #### [address] [place], [place] [address] [employer] Plant Equipment Operator: Jameson Aaron MD RBC (Bld) [#/Vol] 4.68 10*6/uL Normal 4.21-5.77 [facility] Comment on above: Performed By: #### S ED, CRP, BMP, CDP #### [address] [place] [address] [employer] Plant Equipment Operator: Jameson Aaron MD WBC (Bld) [#/Vol] 10.5 10*3/uL Normal 3.5-11.3 [facility] Comment on above: Performed By: #### S ED, CRP, BMP, CDP #### [address] [place] [address] [employer] Plant Equipment Operator: Jameson Aaron MD Sedimentation Rateon 023 Sedimentation Rate 114 mm/Hr High 0-20 [facility] Comment on above: Performed By: #### S ED, CRP, BMP, CDP #### [address] [place], [place] [address] [employer] Plant Equipment Operator: Jameson Aaron MD FUNGAL CULTUREon 09-21-2022 Fungus (Mycology) Culture Final report Abnormal [facility] Comment on above: Performed By: #### C XFUN ####[facility] [address] [place], [place] [address]Dr. Eddie Lerner Fungus Stain Final report Normal [facility] Comment on above: Performed By: #### C XFUN ####[facility] [address] [place], [place] [address]Dr. Eddie Lerner Result 1 Comment Normal [facility] Comment on above: Result Comment: ANNEMARIE/ Calcofluor preparation: no fungus observed. Performed By: #### C XFUN ####[facility] [address] [place], [place] [address]Dr. dEdie Lerner Result 1 Rosy albicans Abnormal [facility] Comment on above: Performed By: #### C XFUN ####[facility] [address] [place], [place] [address]Dr. Eddie Lerner CULTURE OTHERon 08-23-2022 CULTURE OTHER Isolate 1 Enterococcus faecalis Light growth of ORGANISM 1 Enterococcus faecalis ANTIBIOTIC M.I.C RX STATUS Beta-Lactamase Neg NEG F Benzylpenicillin 0.5 S F Ampicillin <=2 S F Gentamicin High Level (synergy) SYN-R R F Streptomycin High Level (synergy) SYN-S S F Quinupristin/Dalfopristin 4 R F Linezolid 1 S F Vancomycin 1 S F Normal [facility] Comment on above: Performed By: #### O THCX ####[facility] [address] [place], [place] [address]Dr. Eddie Lerner ACID FAST SMEAR AND CXon Acid Fast Smear Negative Normal [facility] Comment on above: Performed By: #### A FB ####[facility] [address] [place], [place] [address]DrVaishali [employer] Specimen Processing Tissue Grinding Normal [facility] Comment on above: Performed By: #### A FB ####[facility] [address] [place], [place] [address]DrVaishali Lerner BNPon 08-20-2022 Natriuretic peptide B (Bld) [Mass/Vol] 648.0 pg/mL Normal <=900.0 [facility] Comment on above: Performed By: #### A 1C #### [facility] [address] [place] [address] [address] Eddie Lerner CULTURE ANAEROBICon 08-21-19 23 CULTURE ANAEROBIC Culture Observations : NO GROWTH OF ANAEROBES AT 72 HOURS. Normal [facility] Comment on above: Performed By: #### A NACX ####[facility] [address] [place] [address]Dr. Eddie Lerner GLYCOHEMOGLOBIN A1Con 2022 ADA RECOMMENDATION SEE BELOW Normal [facility] Comment on above: Result Comment: ADA RECOMMENDED LIMIT 4.0 - 6.0 ADA THERAPEUTIC TARGET < 7.0 ACTION SUGGESTED > 7.0 Performed By: #### R ENAL, LIPID, LIVER, TSH #### [facility] [address] [place] [address] [address] Eddie Lerner Glucose [Mass/Vol] 235 mg/dL Normal [facility] Comment on above: Performed By: #### R ENAL, LIPID, LIVER, TSH #### [facility] [address] [place] [address] [address] Eddie Lerner HbA1c (Bld) [Mass fraction] 9.8 % Critically high 4.5-6.2 [facility] Comment on above: Performed By: #### R ENAL, LIPID, LIVER, TSH #### [facility] [address] [place] [address] [address] Eddie Lerner GRAM STAINon 08-20-2022 COMMENTS NO ORGANISMS OBSERVED Normal [facility] Comment on above: Performed By: #### G STAIN ####[facility] [address] [place] [address]Dr. Eddie Lerner DIPHTHEROIDS Normal [facility] Comment on above: Performed By: #### G STAIN ####[facility] [address] [place] [address]Dr. Eddie Lerner EPITHELIALS Normal [facility] Comment on above: Performed By: #### G STAIN ####[facility] [address] [place] [address]Dr. Eddie Lerner FUNGAL ELEMENTS Normal [facility] Comment on above: Performed By: #### G STAIN ####[facility] [address] [place] [address]Dr. Eddie Lerner GRAM NEG BACILLI Normal [facility] Comment on above: Performed By: #### G STAIN ####[facility] [address] [place] [address]Dr. Eddie Lerner GRAM NEG DIPPLOCOCCI Normal [facility] Comment on above: Performed By: #### G STAIN ####[facility] [address] [place] [address]Dr. Eddie Lerner GRAM POS BACILLI Normal [facility] Comment on above: Performed By: #### G STAIN ####[facility] [address] [place] [address]Dr. Eddie Lerner GRAM POSITIVE COCCI Normal [facility] Comment on above: Performed By: #### G STAIN ####[facility] [address] [place] [address]Dr. Eddie Lerner GRAM STAIN SOURCE Lt Foot Bone Normal [facility] Comment on above: Performed By: #### G STAIN ####[facility] [address] [place] [address]Dr. Eddie Lerner GS_DIPTH Normal [facility] Comment on above: Performed By: #### G STAIN ####[facility] [address] [place] [address]Dr. Eddie Lerner WBC RARE Normal [facility] Comment on above: Performed By: #### G STAIN ####[facility] [address] [place] [address]Dr. Eddie Lerner LIPID PROFILEon 08-20-2022 CHOL-HDL RATIO NORM SEE BELOW Normal [facility] Comment on above: Result Comment: 3.3 - 4.4 LOW RISK 4.4 - 7.1 AVERAGE RISK 7.1 - 11.0 MODERATE RISK >11.0 HIGH RISK Performed By: #### A 1C #### [facility] [address] [place] [address] [address] Eddie Lerner Cholesterol [Mass/Vol] 137 mg/dL Normal <=200 [facility] Comment on above: Performed By: #### A 1C #### [facility] [address] [place] [address] Dr. Eddie Lerner Cholesterol in HDL [Mass/Vol] 54 mg/dL Normal 40-60 [facility] Comment on above: Performed By: #### A 1C #### [facility] [address] [place] [address] [address] Eddie Lerner Cholesterol in LDL [Mass/Vol] 63.2 mg/dL Normal [facility] Comment on above: Performed By: #### A 1C #### [facility] [address] [place] [address] Dr. Eddie Lerner Cholesterol.total/C holesterol in HDL [Mass ratio] 2.5 {ratio} Normal [facility] Comment on above: Performed By: #### A 1C #### [facility] [address] [place] [address] Dr. Eddie Lerner HDL NORMAL > or = 60 mg/dl - LO W CARDIOVASCULAR RISK <40 mg/dl - HIGH CARDIOVASCULAR RISK Normal [facility] Comment on above: Performed By: #### A 1C #### [facility] [address] [place] [address] Dr. Eddie Lerner LDL CALC NORMAL SEE BELOW Normal [facility] Comment on above: Result Comment: <100 mg/dl OPTIMAL 100 - 129 mg/dl NEAR OR ABOVE OPTIMAL 130 - 159 mg/dl BORDERLINE HIGH 160 - 189 mg/dl HIGH >190 mg/dl VERY HIGH Performed By: #### A 1C #### [facility] [address] [place] [address] Dr. Eddie Lerner Triglyceride [Mass/Vol] 99 mg/dL Normal <=[address] [facility] Comment on above: Performed By: #### A 1C #### [facility] [address] [place] [address] Dr. Eddie Lerner VLDL CALC 19.8 mg/dL Normal [facility] Comment on above: Performed By: #### A 1C #### [facility] [address] [place] [address] Dr. Eddie Lerner LIVER PROFILEon 08-20-2022 Albumin [Mass/Vol] 2.8 g/dL Critically low 3.4-5.[address] [facility] Comment on above: Performed By: #### A 1C #### [facility] [address] [place] [address] Dr. Eddie Lerner Albumin/Globulin [Mass ratio] 0.6 {ratio} Normal [facility] Comment on above: Performed By: #### A 1C #### [facility] [address] [place] [address] Dr. Eddie Lerner ALP [Catalytic activity/Vol] 87 U/L Normal 46-116 [facility] Comment on above: Performed By: #### A 1C #### [facility] [address] [place] [address] Dr. Eddie Lerner ALT [Catalytic activity/Vol] 49 U/L Normal 16-63 [facility] Comment on above: Performed By: #### A 1C #### [facility] [address] [place] [address] Dr. Eddie Lerner AST [Catalytic activity/Vol] 36 U/L Normal 15-37 [facility] Comment on above: Performed By: #### A 1C #### [facility] [address] [place] [address] Dr. Eddie Lerner BILI, CONJUGATED 0.1 mg/dL Normal 0.0-0.2 [facility] Comment on above: Performed By: #### A 1C #### [facility] [address] [place] [address] Dr. Eddie Lerner Bilirubin [Mass/Vol] 0.4 mg/dL Normal 0.2-1.0 [facility] Comment on above: Performed By: #### A 1C #### [facility] [address] [place] [address] Dr. Eddie Lerner Globulin (S) [Mass/Vol] 4.4 g/dL Normal [facility] Comment on above: Performed By: #### A 1C #### [facility] [address] [place] [address] Dr. Eddie Lerner Protein [Mass/Vol] 7.2 g/dL Normal 6.4-8.2 [facility] Comment on above: Performed By: #### A 1C #### [facility] [address] [address] [address] Eddie Lerner POINT OF CARE GLUCOSEon - Glucose [Mass/Vol] 107 mg/dL Critically high 74-106 [facility] Comment on above: Performed By: #### P OCGLUC #### [facility] [address] [address] [address] Eddie Lerner Glucose [Mass/Vol] 108 mg/dL Critically high 74-106 [facility] Comment on above: Performed By: #### P OCGLUC ####[facility] [address] [place], [place] [address]Dr. Eddie Lerner TSHon 08-20-2022 TSH 2.247 uIU/mL Normal 0.358-3.740 [facility] Comment on above: Performed By: #### A 1C #### [facility] [address] [place] [address] Dr. Eddie Lerner CBC AUTO DIFFon 08-15-2022 BASO # 0.0 103/ul Normal 0.0-0.1 [facility] Comment on above: Performed By: #### C BC ####[facility] [address] [place], [place] [address]DrVaishali Lerner Basophils/100 WBC (Bld) 0.4 % Normal 0.2-2.[address] [facility] Comment on above: Performed By: #### C BC ####[facility] [address] [address]DrVaishali Lerner EO # 0.2 103/ul Normal 0.0-0.[address] [facility] Comment on above: Performed By: #### C BC ####[facility] [address] [place], [place] [address]DrVaishali Lerner Eosinophils/100 WBC (Bld) 2.0 % Normal 0.9-7.[address] [facility] Comment on above: Performed By: #### C BC ####[facility] [address] [place], [place] [id number]. Eddie Lerner Erythrocyte distribution width (RBC) [Ratio] 14.5 % Normal 11.0-15.[address] [facility] Comment on above: Performed By: #### C BC ####[facility] [address] [place], [place] [address]Dr. Eddie Lerner Hematocrit (Bld) [Volume fraction] 40.5 % Critically low 42.0-54.[address] [facility] Comment on above: Performed By: #### C BC ####[facility] [address] [place], [place] [address]Dr. Eddie Lerner Hemoglobin (Bld) [Mass/Vol] 13.1 g/dL Critically low 14.0-18.[address] [facility] Comment on above: Performed By: #### C BC ####[facility] [address] [place], [place] [address]Dr. Eddie Lerner IG # 0.12 10e3/ul Critically high 0.00-0.03 [facility] Comment on above: Performed By: #### C BC ####[facility] [address] [place], [place] [address]Dr. Eddie Lerner IG % 1.2 % Critically high 0.0-0.[address] [facility] Comment on above: Performed By: #### C BC ####[facility] [address] [place], [place] [address]Dr. Eddie Lerner LYMPH # 1.4 103/ul Normal 1.2-3.[address] [facility] Comment on above: Performed By: #### C BC ####[facility] [address] [place], [place] [address]Dr. Eddie Lerner Lymphocytes/100 WBC (Bld) 13.6 % Critically low 20.5-60.[address] [facility] Comment on above: Performed By: #### C BC ####[facility] [address] [place], [place] [address]Dr. Eddie Lerner MANUAL DIFF REQ NO Normal The [facility] Comment on above: Performed By: #### C BC ####[facility] [address] [place], [place] [address]Dr. Eddie Lerner MCH (RBC) [Entitic mass] 29.8 pg Normal 25.9-34.[address] [facility] Comment on above: Performed By: #### C BC ####[facility] [address] [address]Dr. Eddie Lerner MCHC (RBC) [Mass/Vol] 32.3 g/dL Normal 29.9-35.[address] [facility] Comment on above: Performed By: #### C BC ####[facility] [address] [address]Dr. Eddie Yann MCV (RBC) [Entitic vol] 92.0 fL Normal 80.0-94.[address] [facility] Comment on above: Performed By: #### C BC ####[facility] [address] [address]Dr. Eddie Yann MONO # 0.5 103/ul Normal 0.3-0.[address] [facility] Comment on above: Performed By: #### C BC ####[facility] [address] [place], [place] [address]Dr. Dainaquincy Lerner Monocytes/100 WBC (Bld) 4.8 % Normal 1.7-12.[address] [facility] Comment on above: Performed By: #### C BC ####[facility] [address] [place], [place] [address]Dr. Eddie Lerner NEUT # 8.1 103/ul Critically high 1.4-6.[address] [facility] Comment on above: Performed By: #### C BC ####[facility] [address] [place], [place] [address]Dr. Dainaquincy Lerner Neutrophils/100 WBC (Bld) 78.0 % Critically high 43.0-75.[address] [facility] Comment on above: Performed By: #### C BC ####[facility] [address] [place], [place] [address]Dr. Eddie Lerner Platelet mean volume (Bld) [Entitic vol] 8.6 fL Critically low 9.5-13.[address] [facility] Comment on above: Performed By: #### C BC ####[facility] [address] [place], [place] [address]Hr. Eddie Lerner PLT 240 103/ul Normal 150-[address] [facility] Comment on above: Performed By: #### C BC ####[facility] [address] [id number]. Eddie Lerner RBC 4.40 106/ul Critically low 4.70-6.[address] [facility] Comment on above: Performed By: #### C BC ####[facility] [address] [id number]. Eddie Lerner WBC 10.3 103/ul Normal 4.0-11.[address] [facility] Comment on above: Performed By: #### C BC ####[facility] [address] [address]DrVaishali Lerner CRPon 08-15-2022 CRP [Mass/Vol] mg/L Normal <=1.[address] [facility] Comment on above: Performed By: #### A 1C #### [facility] [address] [address] [address] Eddie Lerner PROF CHEM 8 (BAS METB)on Anion gap [Moles/Vol] 14.4 mmol/L Normal [facility] Comment on above: Performed By: #### A 1C #### [facility] [address] [address] [address] Eddie Lerner Calcium [Mass/Vol] 9.2 mg/dL Normal 8.5-10.[address] [facility] Comment on above: Performed By: #### A 1C #### [facility] [address] [address] [address] Eddie Lerner Chloride [Moles/Vol] 101 mmol/L Normal 98-[address] [facility] Comment on above: Performed By: #### A 1C #### [facility] [address] [address] [address] Eddie Lerner CO2 [Moles/Vol] 25.2 mmol/L Normal 21.0-32.[address] [facility] Comment on above: Performed By: #### A 1C #### [facility] [address] [address] [address] Eddie Lerner Creatinine [Mass/Vol] 3.07 mg/dL Critically high 0.70-1.30 [facility] Comment on above: Performed By: #### A 1C #### [facility] [address] [address] [address] Eddie Lerner EGFR-AF MALIAN 25 mL/min/1.73m2 Critically low >=60 [facility] Comment on above: Performed By: #### A 1C #### [facility] [address] [address] [address] Eddie Lerner EGFR-NON AF MALIAN 21 mL/min/1.73m2 Critically low >=60 [facility] Comment on above: Performed By: #### A 1C #### [facility] [address] [address] [address] Eddie Lerner Glucose [Mass/Vol] 415 mg/dL Critically high 74-106 T [facility] Comment on above: Performed By: #### A 1C #### [facility] [address] [address] [address] Eddie Lerner Potassium [Moles/Vol] 5.6 mmol/L Critically high 3.5-5.1 [facility] Comment on above: Performed By: #### A 1C #### [facility] [address] [address] [address] Eddie Lerner Sodium [Moles/Vol] 135 mmol/L Critically low 136-145 Th [facility] Comment on above: Performed By: #### A 1C #### [facility] [address] [address] [address] Eddie Lerner Urea nitrogen [Mass/Vol] 34.0 mg/dL Critically high 7.0-18.0 [facility] Comment on above: Performed By: #### A 1C #### [facility] [address] [address] [address] Eddie Lerner Urea nitrogen/Creatinine [Mass ratio] 11.1 mg/mg Normal [facility] Comment on above: Performed By: #### A 1C #### [facility] [address] [address] [address] Eddie Lerner SED RATE WESTERGRENon 2022 SED RATE 59 mm/hr Critically high <=[address] [facility] Comment on above: Performed By: #### S EDR ####[facility] [address] [address]Dr. Eddie Lerner BNPon 06-06-2022 Natriuretic peptide B (Bld) [Mass/Vol] 1342.0 pg/mL Critically high <=900.0 [facility] Comment on above: Performed By: #### B PICKER MACHINE OPERATOR ####[facility] [address] [address]Dr. Eddie Lerner CBC AUTO DIFFon 06-06-2022 BASO # 0.1 103/ul Normal 0.0-0.1 [facility] Comment on above: Performed By: #### A 1C #### [facility] [address] [place] [address] Dr. Eddie Lerner Basophils/100 WBC (Bld) 0.6 % Normal 0.2-2.0 [facility] Comment on above: Performed By: #### A 1C #### [facility] [address] [place] [address] Dr. Eddie Lerner EO # 0.2 103/ul Normal 0.0-0.7 [facility] Comment on above: Performed By: #### A 1C #### [facility] [address] [address] [address] Eddie Lerner Eosinophils/100 WBC (Bld) 1.8 % Normal 0.9-7.[address] [facility] Comment on above: Performed By: #### A 1C #### [facility] [address] [place] [address] Dr. Eddie Lerner Erythrocyte distribution width (RBC) [Ratio] 15.2 % Critically high 11.0-15.0 [facility] Comment on above: Performed By: #### A 1C #### [facility] [address] [place] [address] Dr. Eddie Lerner Hematocrit (Bld) [Volume fraction] 39.0 % Critically low 42.0-54.0 [facility] Comment on above: Performed By: #### A 1C #### [facility] [address] [address] [address] Eddie Lerner Hemoglobin (Bld) [Mass/Vol] 12.4 g/dL Critically low 14.0-18.0 [facility] Comment on above: Performed By: #### A 1C #### [facility] [address] [address] [address] Eddie Lerner IG # 0.21 10e3/ul Critically high 0.00-0.03 [facility] Comment on above: Performed By: #### A 1C #### [facility] [address] [place] [address] Dr. Eddie Lerner IG % 1.6 % Critically high 0.0-0.5 [facility] Comment on above: Performed By: #### A 1C #### [facility] [address] [place] [address] Dr. Eddie Lerner LYMPH # 1.9 103/ul Normal 1.2-3.8 [facility] Comment on above: Performed By: #### A 1C #### [facility] [address] [place] [address] Dr. Eddie Lerner Lymphocytes/100 WBC (Bld) 13.8 % Critically low 20.5-60.0 [facility] Comment on above: Performed By: #### A 1C #### [facility] [address] [place] [address] Dr. Eddie Lerner MANUAL DIFF REQ NO Normal [facility] Comment on above: Performed By: #### A 1C #### [facility] [address] [place] [address] Dr. Eddie Lerner MCH (RBC) [Entitic mass] 27.8 pg Normal 25.9-34.0 [facility] Comment on above: Performed By: #### A 1C #### [facility] [address] [place] [address] Dr. Eddie Lerner MCHC (RBC) [Mass/Vol] 31.8 g/dL Normal 29.9-35.2 [facility] Comment on above: Performed By: #### A 1C #### [facility] [address] [address] [address] Eddie Lerner MCV (RBC) [Entitic vol] 87.4 fL Normal 80.0-94.0 [facility] Comment on above: Performed By: #### A 1C #### [facility] [address] [place] [address] Dr. Eddie Lerner MONO # 0.8 103/ul Normal 0.3-0.8 [facility] Comment on above: Performed By: #### A 1C #### [facility] [address] [place] [address] Dr. Eddie Lerner Monocytes/100 WBC (Bld) 5.9 % Normal 1.7-12.0 [facility] Comment on above: Performed By: #### A 1C #### [facility] [address] [place] [address] Dr. Eddie Lerner NEUT # 10.3 103/ul Critically high 1.4-6.5 [facility] Comment on above: Performed By: #### A 1C #### [facility] [address] [place] [address] Dr. Eddie Lerner Neutrophils/100 WBC (Bld) 76.3 % Critically high 43.0-75.0 [facility] Comment on above: Performed By: #### A 1C #### [facility] [address] [place] [address] Dr. Eddie Lerner Platelet mean volume (Bld) [Entitic vol] 10.2 fL Normal 9.5-13.[address] [facility] Comment on above: Performed By: #### A 1C #### [facility] [address] [place] [address] Dr. Eddie Lerner PLT 288 103/ul Normal 150-[address] [facility] Comment on above: Performed By: #### A 1C #### [facility] [address] [place] [address] Dr. Eddie Lerner RBC 4.46 106/ul Critically low 4.70-6.[address] [facility] Comment on above: Performed By: #### A 1C #### [facility] [address] [address] [address] Eddie Lerner WBC 13.5 103/ul Critically high 4.0-11.0 [facility] Comment on above: Performed By: #### A 1C #### [facility] [address] [address] [address] Eddie Lerner GLYCOHEMOGLOBIN A1Con 2022 ADA RECOMMENDATION SEE BELOW Normal [facility] Comment on above: Result Comment: ADA RECOMMENDED LIMIT 4.0 - 6.0 ADA THERAPEUTIC TARGET < 7.0 ACTION SUGGESTED > 7.0 Performed By: #### A 1C #### [facility] [address] [address] [address] Eddie Lerner Glucose [Mass/Vol] 283 mg/dL Normal [facility] Comment on above: Performed By: #### A 1C #### [facility] [address] [place] [address] Dr. Eddie Lerner HbA1c (Bld) [Mass fraction] 11.5 % Critically high 4.5-6.[address] [facility] Comment on above: Performed By: #### A 1C #### [facility] [address] [address] [address] Eddie Lerner LIPID PROFILEon 06-06-2022 CHOL-HDL RATIO NORM SEE BELOW Normal [facility] Comment on above: Result Comment: 3.3 - 4.4 LOW RISK 4.4 - 7.1 AVERAGE RISK 7.1 - 11.0 MODERATE RISK >11.0 HIGH RISK Performed By: #### R ENAL, LIPID, LIVER, TSH #### [facility] [address] [place] [address] Dr. Eddie Lerner Cholesterol [Mass/Vol] 152 mg/dL Normal <=[address] [facility] Comment on above: Performed By: #### R ENAL, LIPID, LIVER, TSH #### [facility] [address] [place] [address] Dr. Eddie Lerner Cholesterol in HDL [Mass/Vol] 51 mg/dL Normal 40-60 [facility] Comment on above: Performed By: #### R ENAL, LIPID, LIVER, TSH #### [facility] [address] [address] [address] Eddie Lerner Cholesterol in LDL [Mass/Vol] 61.0 mg/dL Normal [facility] Comment on above: Performed By: #### R ENAL, LIPID, LIVER, TSH #### [facility] [address] [address] [address] Eddie Lerner Cholesterol.total/C holesterol in HDL [Mass ratio] 3.0 {ratio} Normal [facility] Comment on above: Performed By: #### R ENAL, LIPID, LIVER, TSH #### [facility] [address] [address] [address] Eddie Lerner HDL NORMAL > or = 60 mg/dl - LO W CARDIOVASCULAR RISK <40 mg/dl - HIGH CARDIOVASCULAR RISK Normal [facility] Comment on above: Performed By: #### R ENAL, LIPID, LIVER, TSH #### [facility] [address] [address] [address] Eddie Lerner LDL CALC NORMAL SEE BELOW Normal [facility] Comment on above: Result Comment: <100 mg/dl OPTIMAL 100 - 129 mg/dl NEAR OR ABOVE OPTIMAL 130 - 159 mg/dl BORDERLINE HIGH 160 - 189 mg/dl HIGH >190 mg/dl VERY HIGH Performed By: #### R ENAL, LIPID, LIVER, TSH #### [facility] [address] [address] [address] Eddie Lerner Triglyceride [Mass/Vol] 200 mg/dL Critically high <=150 [facility] Comment on above: Performed By: #### R ENAL, LIPID, LIVER, TSH #### [facility] [address] [address] [address] Eddie Lerner VLDL CALC 40.0 mg/dL Normal [facility] Comment on above: Performed By: #### R ENAL, LIPID, LIVER, TSH #### [facility] [address] [address] [address] Eddie Lerner LIVER PROFILEon 06-06-2022 Albumin [Mass/Vol] 2.6 g/dL Critically low 3.4-5.0 Th [facility] Comment on above: Performed By: #### R ENAL, LIPID, LIVER, TSH #### [facility] [address] [address] [address] Eddie Lerner Albumin/Globulin [Mass ratio] 0.6 {ratio} Normal [facility] Comment on above: Performed By: #### R ENAL, LIPID, LIVER, TSH #### [facility] [address] [address] [address] Eddie Lerner ALP [Catalytic activity/Vol] 120 U/L Critically high 46-[address] [facility] Comment on above: Performed By: #### R ENAL, LIPID, LIVER, TSH #### [facility] [address] [place] [address] Dr. Eddie Lerner ALT [Catalytic activity/Vol] 22 U/L Normal 16-63 [facility] Comment on above: Performed By: #### R ENAL, LIPID, LIVER, TSH #### [facility] [address] [place] [address] Dr. Eddie Lerner AST [Catalytic activity/Vol] 15 U/L Normal 15-37 [facility] Comment on above: Performed By: #### R ENAL, LIPID, LIVER, TSH #### [facility] [address] [address] [address] Eddie Lerner BILI, CONJUGATED 0.1 mg/dL Normal 0.0-0.2 [facility] Comment on above: Performed By: #### R ENAL, LIPID, LIVER, TSH #### [facility] [address] [address] [address] Eddie Lerner Bilirubin [Mass/Vol] 0.3 mg/dL Normal 0.2-1.0 [facility] Comment on above: Performed By: #### R ENAL, LIPID, LIVER, TSH #### [facility] [address] [place] [address] Dr. Eddie Lerner Globulin (S) [Mass/Vol] 4.7 g/dL Normal [facility] Comment on above: Performed By: #### R ENAL, LIPID, LIVER, TSH #### [facility] [address] [address] [address] Eddie Lerner Protein [Mass/Vol] 7.3 g/dL Normal 6.4-8.[address] [facility] Comment on above: Performed By: #### R ENAL, LIPID, LIVER, TSH #### [facility] [address] [address] [address] Eddie Lerner RENAL FUNCTION PANELon 06-06 Calcium [Mass/Vol] 9.0 mg/dL Normal 8.5-10.[address] [facility] Comment on above: Performed By: #### R ENAL, LIPID, LIVER, TSH #### [facility] [address] [address] [address] Eddie Lerner Chloride [Moles/Vol] 96 mmol/L Critically low 98-[address] [facility] Comment on above: Performed By: #### R ENAL, LIPID, LIVER, TSH #### [facility] [address] [address] [address] Eddie Lerner CO2 [Moles/Vol] 21.8 mmol/L Normal 21.0-32.[address] [facility] Comment on above: Performed By: #### R ENAL, LIPID, LIVER, TSH #### [facility] [address] [address] [address] Eddie Lerner Creatinine [Mass/Vol] 2.38 mg/dL Critically high 0.70-1.30 [facility] Comment on above: Performed By: #### R ENAL, LIPID, LIVER, TSH #### [facility] [address] [address] [address] Eddie Lerner EGFR-AF MALIAN 34 mL/min/1.73m2 Critically low >=[address] [facility] Comment on above: Performed By: #### R ENAL, LIPID, LIVER, TSH #### [facility] [address] [address] [address] Eddie Lerner EGFR-NON AF MALIAN 28 mL/min/1.73m2 Critically low >=[address] [facility] Comment on above: Performed By: #### R ENAL, LIPID, LIVER, TSH #### [facility] [address] [address] [address] Eddie Lerner Glucose [Mass/Vol] 523 mg/dL Critically high 74-106 T [facility] Comment on above: Performed By: #### R ENAL, LIPID, LIVER, TSH #### [facility] [address] [address] [address] Eddie Lerner Phosphate [Mass/Vol] 4.1 mg/dL Normal 2.6-4.7 [facility] Comment on above: Performed By: #### R ENAL, LIPID, LIVER, TSH #### [facility] [address] [address] [address] Eddie Lerner Potassium [Moles/Vol] 4.6 mmol/L Normal 3.5-5.1 [facility] Comment on above: Performed By: #### R ENAL, LIPID, LIVER, TSH #### [facility] [address] [place] [address] Dr. Eddie Lerner Sodium [Moles/Vol] 128 mmol/L Critically low 136-145 [facility] Comment on above: Performed By: #### R ENAL, LIPID, LIVER, TSH #### [facility] [address] [place] [address] Dr. Eddie Lerner Urea nitrogen [Mass/Vol] 28.0 mg/dL Critically high 7.0-18.0 [facility] Comment on above: Performed By: #### R ENAL, LIPID, LIVER, TSH #### [facility] [address] [place] [address] Dr. Eddie Lerner TSHon 06-06-2022 TSH 1.308 uIU/mL Normal 0.358-3.740 [facility] Comment on above: Performed By: #### R ENAL, LIPID, LIVER, TSH #### [facility] [address] [place] [address] Dr. Eddie Lerner UA RANDOMon 06-06-2022 Bilirubin Ql (U) Negative Normal NEGATIVE [facility] Comment on above: Performed By: #### U A #### [facility] [address] [place] [address] Dr. Eddie Lerner Clarity (U) CLEAR Normal CLEAR [facility] Comment on above: Performed By: #### U A #### [facility] [address] [place] [address] Dr. Eddie Lerner Color (U) LT. YELLOW Normal YELLOW [facility] Comment on above: Performed By: #### U A #### [facility] [address] [place] [address] Dr. Eddie Lerner Glucose Ql (U) >1000 Abnormal NEGATIVE The [facility] Comment on above: Performed By: #### U A #### [facility] [address] [place] [address] Dr. Eddie Lerner Hemoglobin Ql (U) TRACE-INTACT Abnormal NEGATIVE [facility] Comment on above: Performed By: #### U A #### [facility] [address] [place] [address] Dr. Eddie Lerner Ketones Ql (U) Negative Normal NEGATIVE [facility] Comment on above: Performed By: #### U A #### [facility] [address] [place] [address] Dr. Eddei Lerner LEUKOCYTES Negative Normal NEGATIVE [facility] Comment on above: Performed By: #### U A #### [facility] [address] [place] [address] Dr. Eddie Lerner Nitrite Ql (U) Negative Normal NEGATIVE [facility] Comment on above: Performed By: #### U A #### [facility] [address] [place] [address] Dr. Eddie Lerner pH (U) 6.5 [pH] Normal 5-[address] [facility] Comment on above: Performed By: #### U A #### [facility] [address] [place] [address] Dr. Eddie Lerner SPEC GRAVITY 1.010 Normal 1.005-<=1.[address] [facility] Comment on above: Performed By: #### U A #### [facility] [address] [place] [address] Dr. Eddie Lerner UA PROTEIN 100 mg/dl Abnormal NEGATIVE/ TRACE The [facility] Comment on above: Performed By: #### U A #### [facility] [address] [place] [address] Dr. Eddie Lerner Urobilinogen Qn (U) 0.2 {Chaya'U}/dL Normal 0.2 - 1. [address] [facility] Comment on above: Performed By: #### U A #### [facility] [address] [address] [address] Eddie Lerner VITAMIN D 25 OHon 06-06-2022 VIT D 25-OH 13.9 ng/mL Normal [facility] Comment on above: Performed By: #### V ITAD ####[facility] [address] [address]. Eddie Lerner VIT D RANGES SEE BELOW [facility] Comment on above: Result Comment: <20 ng/mL Vit D deficient 20 - <30 ng/mL Vit D insufficient 30 - 100 ng/mL Vit D sufficient >100 ng/mL Potential Toxicity Performed By: #### V ITAD ####[facility] [address] [place], [place] [address]Dr. Eddie Lerner ACID FAST SMEAR AND CXon Acid Fast Culture Negative Normal [facility] Comment on above: Result Comment: No a wendy fast bacilli isolated after 6 weeks. Performed By: #### A FB ####[facility] [address] [place], [place] [address]Dr. Eddie Lerner Acid Fast Smear Negative Normal [facility] Comment on above: Performed By: #### A FB ####[facility] [address] [place], [place] [address]Dr. Eddie Lerner [employer] Specimen Processing Tissue Grinding Normal [facility] Comment on above: Performed By: #### A FB ####[facility] [address] [place], [place] [address]Dr. Eddie Lerner FUNGAL CULTUREon 01-19-2022 Fungus (Mycology) Culture Final report Normal [facility] Comment on above: Performed By: #### R ENAL, LIPID, LIVER, TSH #### [facility] [address] [address] [address] Eddie Lerner Fungus Stain Final report Normal [facility] Comment on above: Performed By: #### R ENAL, LIPID, LIVER, TSH #### [facility] [address] [address] [address] Eddie Lerner Result 1 Comment Normal [facility] Comment on above: Result Comment: ANNEMARIE/ Calcofluor preparation: no fungus observed. Performed By: #### R ENAL, LIPID, LIVER, TSH #### [facility] [address] [place], [place] [address] Dr. Eddie Lerner Result Comment: No y east or mold isolated after 4 weeks. POINT OF CARE GLUCOSEon 12-28 Glucose [Mass/Vol] 177 mg/dL Critically high 74-106 [facility] Comment on above: Performed By: #### A 1C #### [facility] [address] [address] [address] Eddie Lerner Glucose [Mass/Vol] 200 mg/dL Critically high -106 [facility] Comment on above: Performed By: #### P OCGLUC ####[facility] [address] [address]. Eddie Lerner [facility]28 SARS-CoV-2 (COVID-19) RNA SUDHA+probe Ql (Unsp spec) Not detected Normal NOT DETECTED [facility] Comment on above: Result Comment: This test is not yet approved or cleared by the [place] FDA. When there are no FDA-approved or cleared tests available, and other criteria are met, FDA can make tests available under an emergency access mechanism called an Emergency Use Authorization (EUA). The EUA for this test is supported by the Junior [employer] of Health and Human Service's (HHS's) declaration [...] By: #### A 1C #### [facility] [address] [place] [address] Dr. Eddie Lerner PROF CHEM 8 (BAS METB)on Anion gap [Moles/Vol] 15.0 mmol/L Normal [facility] Comment on above: Performed By: #### R ENAL, LIPID, LIVER, TSH #### [facility] [address] [place] [address] Dr. Eddie Lerner Calcium [Mass/Vol] 9.3 mg/dL Normal 8.5-10.1 [facility] Comment on above: Performed By: #### R ENAL, LIPID, LIVER, TSH #### [facility] [address] [place] [address] Dr. Eddie Lerner Chloride [Moles/Vol] 105 mmol/L Normal 98-107 [facility] Comment on above: Performed By: #### R ENAL, LIPID, LIVER, TSH #### [facility] [address] [place] [address] Dr. Eddie Lerner CO2 [Moles/Vol] 22.1 mmol/L Normal 21.0-32.0 [facility] Comment on above: Performed By: #### R ENAL, LIPID, LIVER, TSH #### [facility] [address] [place] [address] Dr. Eddie Lerner Creatinine [Mass/Vol] 2.29 mg/dL Critically high 0.70-1.30 [facility] Comment on above: Performed By: #### R ENAL, LIPID, LIVER, TSH #### [facility] [address] [place] [address] Dr. Eddie Lerner EGFR-AF MALIAN 35 mL/min/1.73m2 Critically low >=60 [facility] Comment on above: Performed By: #### R ENAL, LIPID, LIVER, TSH #### [facility] [address] [place] [address] Dr. Eddie Lerner EGFR-NON AF MALIAN 29 mL/min/1.73m2 Critically low >=60 [facility] Comment on above: Performed By: #### R ENAL, LIPID, LIVER, TSH #### [facility] [address] [address] [address] Eddie Lerner Glucose [Mass/Vol] 115 mg/dL Critically high 74-106 T [facility] Comment on above: Performed By: #### R ENAL, LIPID, LIVER, TSH #### [facility] [address] [address] [address] Eddie Lerner Potassium [Moles/Vol] 5.1 mmol/L Normal 3.5-5.1 [facility] Comment on above: Performed By: #### R ENAL, LIPID, LIVER, TSH #### [facility] [address] [address] [address] Eddie Lerner Sodium [Moles/Vol] 137 mmol/L Normal 136-145 [facility] Comment on above: Performed By: #### R ENAL, LIPID, LIVER, TSH #### [facility] [address] [address] [address] Eddie Lerner Urea nitrogen [Mass/Vol] 26.0 mg/dL Critically high 7.0-18.0 [facility] Comment on above: Performed By: #### R ENAL, LIPID, LIVER, TSH #### [facility] [address] [address] [address] Eddie Lerner Urea nitrogen/Creatinine [Mass ratio] 11.4 mg/mg Normal [facility] Comment on above: Performed By: #### R ENAL, LIPID, LIVER, TSH #### [facility] [address] [address] [address] Eddie Lerner TISSUE CULTUREon 01-08-2022 Anaerobic Culture, Extended Incubation Final report Normal [facility] Comment on above: Performed By: #### C XTISSU ####[facility] [address] [address]. Eddie Lerner Result 1 Comment Normal [facility] Comment on above: Result Comment: Diph theroids, not Corynebacterium jeikeium Light growth Susceptibility not normally performed on this organism. Performed By: #### C XTISSU ####[facility] [address] [address]Dr. Eddie Lerner Result Comment: No a naerobes recovered. Tissue Culture Final report Abnormal [facility] Comment on above: Performed By: #### C XTISSU ####[facility] [address] [address]. Eddie Lerner POINT OF CARE GLUCOSEon 08-2 Glucose [Mass/Vol] 89 mg/dL Normal 74-[address] [facility] Comment on above: Performed By: #### R ENAL, LIPID, LIVER, TSH #### [facility] [address] [address] [address] Eddie Lerner Glucose [Mass/Vol] 85 mg/dL Normal 74-106 [facility] Comment on above: Performed By: #### P OCGLUC ####[facility] [address] [address]. Eddie Lerner GRAM STAINon 12-21-2021 COMMENTS NO ORGANISMS OBSERVED Normal [facility] Comment on above: Performed By: #### R ENAL, LIPID, LIVER, TSH #### [facility] [address] [address] [address] Eddie Lerner DIPHTHEROIDS Normal [facility] Comment on above: Performed By: #### R ENAL, LIPID, LIVER, TSH #### [facility] [address] [address] [address] Eddie Lerner EPITHELIALS Normal [facility] Comment on above: Performed By: #### R ENAL, LIPID, LIVER, TSH #### [facility] [address] [address] [address] Eddie Lerner FUNGAL ELEMENTS Normal [facility] Comment on above: Performed By: #### R ENAL, LIPID, LIVER, TSH #### [facility] [address] [address] [address] Eddie Lerner GRAM NEG BACILLI Normal [facility] Comment on above: Performed By: #### R ENAL, LIPID, LIVER, TSH #### [facility] [address] [address] [address] Eddie PRINGLE NEG DIPPLOCOCCI Normal [facility] Comment on above: Performed By: #### R ENAL, LIPID, LIVER, TSH #### [facility] [address] [address] [address] Eddie Lerner GRAM POS BACILLI Normal [facility] Comment on above: Performed By: #### R ENAL, LIPID, LIVER, TSH #### [facility] [address] [address] [address] Eddie Lerner GRAM POSITIVE COCCI Normal [facility] Comment on above: Performed By: #### R ENAL, LIPID, LIVER, TSH #### [facility] [address] [address] [address] Eddie Lerner GRAM STAIN SOURCE Lt 1st Metatarsal Bone Normal [facility] Comment on above: Performed By: #### R ENAL, LIPID, LIVER, TSH #### [facility] [address] [address] [address] Eddie Lerner GS_DIPTH [facility] Comment on above: Performed By: #### R ENAL, LIPID, LIVER, TSH #### [facility] [address] [address] [address] Eddie Lerner WBC RARE Normal [facility] Comment on above: Performed By: #### R ENAL, LIPID, LIVER, TSH #### [facility] [address] [address] [address] Eddie Lerner POINT OF CARE GLUCOSEon 11-28 Glucose [Mass/Vol] 148 mg/dL Critically high 74-106 [facility] Comment on above: Performed By: #### A 1C #### [facility] [address] [address] [address] Eddie Lerner Glucose [Mass/Vol] 100 mg/dL Normal 74-106 [facility] Comment on above: Performed By: #### P OCGLUC ####[facility] [address] [address]Dr. Eddie Lerner Glucose [Mass/Vol] 85 mg/dL Normal 74-106 [facility] Comment on above: Performed By: #### P OCGLUC ####[facility] [address] [address]Dr. Eddie Lerner Glucose [Mass/Vol] 83 mg/dL Normal 74-106 [facility] Comment on above: Performed By: #### R ENAL, LIPID, LIVER, TSH #### [facility] [address] [place], [place] [address] Dr. Eddie Lerner Covid-19 PCR ([facility])on 11-28 SARS-CoV-2 (COVID-19) RNA SUDHA+probe Ql (Unsp spec) Not detected Normal NOT DETECTED [facility] Comment on above: Result Comment: This test is not yet approved or cleared by the [place] FDA. When there are no FDA-approved or cleared tests available, and other criteria are met, FDA can make tests available under an emergency access mechanism called an Emergency Use Authorization (EUA). The EUA for this test is supported by the [place] of Health and Human Service's (HHS's) declaration [...] Performed By: #### C VDTBH ####[facility] [address] [place], [place] [address]Dr. Eddie Lerner PROF CHEM 8 (BAS METB)on Anion gap [Moles/Vol] 11.5 mmol/L Normal [facility] Comment on above: Performed By: #### R ENAL, LIPID, LIVER, TSH #### [facility] [address] [place], [place] [address] Dr. Eddie Lerner Calcium [Mass/Vol] 9.0 mg/dL Normal 8.5-10.1 [facility] Comment on above: Performed By: #### R ENAL, LIPID, LIVER, TSH #### [facility] [address] [place], [place] [address] Dr. Eddie Lerner Chloride [Moles/Vol] 102 mmol/L Normal 98-107 [facility] Comment on above: Performed By: #### R ENAL, LIPID, LIVER, TSH #### [facility] [address] [address] [address] Eddie Lerner CO2 [Moles/Vol] 24.8 mmol/L Normal 21.0-32.0 [facility] Comment on above: Performed By: #### R ENAL, LIPID, LIVER, TSH #### [facility] [address] [address] [address] Eddie Lerner Creatinine [Mass/Vol] 2.19 mg/dL Critically high 0.70-1.30 [facility] Comment on above: Performed By: #### R ENAL, LIPID, LIVER, TSH #### [facility] [address] [address] [address] Eddie Lerner EGFR-AF MALIAN 37 mL/min/1.73m2 Critically low >=60 [facility] Comment on above: Performed By: #### R ENAL, LIPID, LIVER, TSH #### [facility] [address] [address] [address] Eddie Lerner EGFR-NON AF MALIAN 31 mL/min/1.73m2 Critically low >=60 [facility] Comment on above: Performed By: #### R ENAL, LIPID, LIVER, TSH #### [facility] [address] [address] [address] Eddie Lerner Glucose [Mass/Vol] 330 mg/dL Critically high 74-106 [facility] Comment on above: Performed By: #### R ENAL, LIPID, LIVER, TSH #### [facility] [address] [address] [address] Eddie Lerner Potassium [Moles/Vol] 5.3 mmol/L Critically high 3.5-5.1 [facility] Comment on above: Performed By: #### R ENAL, LIPID, LIVER, TSH #### [facility] [address] [address] [address] Eddie Lerner Sodium [Moles/Vol] 133 mmol/L Critically low 136-[address] [facility] Comment on above: Performed By: #### R ENAL, LIPID, LIVER, TSH #### [facility] [address] [address] [address] Eddie Lerner Urea nitrogen [Mass/Vol] 25.0 mg/dL Critically high 7.0-18.0 [facility] Comment on above: Performed By: #### R ENAL, LIPID, LIVER, TSH #### [facility] [address] [address] [address] Eddie Lerner Urea nitrogen/Creatinine [Mass ratio] 11.4 mg/mg Normal [facility] Comment on above: Performed By: #### R ENAL, LIPID, LIVER, TSH #### [facility] [address] [address] [address] Eddie Lerner Comprehensive Metabolic Pane babatunde 08-01-2021 Albumin [Mass/Vol] 2.8 g/dL Low 3.2-5.5 [facility] Comment on above: Order Comment: REDRA W FOR SHORT DRAW AND HEMOLYSIS Performed By: #### P P #### [facility] [address] [place] [address] [place] Albumin/Globulin [Mass ratio] 0.7 {ratio} Normal [facility] Comment on above: Order Comment: REDRA W FOR SHORT DRAW AND HEMOLYSIS Performed By: #### P P #### [facility] [address] [id number] [place] ALP [Catalytic activity/Vol] 87 U/L Normal 32-92 [facility] Comment on above: Order Comment: REDRA W FOR SHORT DRAW AND HEMOLYSIS Performed By: #### P P #### [facility] [address] [id number] [place] ALT [Catalytic activity/Vol] 18 U/L Normal 10-60 [facility] Comment on above: Order Comment: REDRA W FOR SHORT DRAW AND HEMOLYSIS Performed By: #### P P #### [facility] [address] [id number] [place] AST [Catalytic activity/Vol] 20 U/L Normal 10-42 [facility] Comment on above: Order Comment: REDRA W FOR SHORT DRAW AND HEMOLYSIS Performed By: #### P P #### [address] Bilirubin [Mass/Vol] 0.6 mg/dL Normal 0.3-1.2 [facility] Comment on above: Order Comment: REDRA W FOR SHORT DRAW AND HEMOLYSIS Performed By: #### P P #### [address] Calcium [Mass/Vol] 8.9 mg/dL Normal 8.2-10.2 [facility] Comment on above: Order Comment: REDRA W FOR SHORT DRAW AND HEMOLYSIS Performed By: #### P P #### [address] Chloride [Moles/Vol] 103 mmol/L Normal 95-114 [facility] Comment on above: Order Comment: REDRA W FOR SHORT DRAW AND HEMOLYSIS Performed By: #### P P #### [address] CO2 [Moles/Vol] 24.7 mmol/L Normal 22.0-30.0 [facility] Comment on above: Order Comment: REDRA W FOR SHORT DRAW AND HEMOLYSIS Performed By: #### P P #### [address] Creatinine [Mass/Vol] 2.34 mg/dL High 0.64-1.27 [facility] Comment on above: Order Comment: REDRA W FOR SHORT DRAW AND HEMOLYSIS Performed By: #### P P #### [address] Estimated GFR ( Camilla 34 [facility] Comment on above: Order Comment: REDRA W FOR SHORT DRAW AND HEMOLYSIS Result Comment: GFR estimated reference range: According to KDOQI guidelines, <60 ml/min/1.73m2 is sufficient to diagnose a patient with chronic kidney disease. Performed By: #### P P #### [address] Estimated GFR (Non- Am 28 [facility] Comment on above: Order Comment: REDRA W FOR SHORT DRAW AND HEMOLYSIS Performed By: #### P P #### [facility] [address] [id number] [place] Globulin (S) [Mass/Vol] 3.9 g/dL Normal [facility] Comment on above: Order Comment: REDRA W FOR SHORT DRAW AND HEMOLYSIS Performed By: #### P P #### [address] Glucose [Mass/Vol] 171 mg/dL High 70-100 [facility] Comment on above: Order Comment: REDRA W FOR SHORT DRAW AND HEMOLYSIS Result Comment: [facility] Glucose Reference Range is dependent on time and content of last meal. Glucose of more than 200 mg/dL in a nonstressed, ambulatory subject supports the diagnosis of Diabetes Mellitus. ADA recommended reference range Performed By: #### P P #### [address] Potassium [Moles/Vol] 4.0 mmol/L Normal 3.5-5.1 [facility] Comment on above: Order Comment: REDRA W FOR SHORT DRAW AND HEMOLYSIS Performed By: #### P P #### [address] Protein [Mass/Vol] 6.7 g/dL Normal 6.1-7.9 [facility] Comment on above: Order Comment: REDRA W FOR SHORT DRAW AND HEMOLYSIS Performed By: #### P P #### [place] [address] [place] Sodium [Moles/Vol] 138 mmol/L Normal 136-146 [facility] Comment on above: Order Comment: REDRA W FOR SHORT DRAW AND HEMOLYSIS Performed By: #### P P #### [place] [address] [place] Urea nitrogen [Mass/Vol] 18 mg/dL Normal 9-23 [facility] Comment on above: Order Comment: REDRA W FOR SHORT DRAW AND HEMOLYSIS Performed By: #### P P #### [place] [address] [place] Ferritinon 08-01-2021 Ferritin [Mass/Vol] 151.9 ng/mL Normal 23.9-336.2 [facility] Comment on above: Order Comment: Reaso n for Exam CKD (chronic kidney disease) stage 4, GFR 15-29 ml/min;Diabe Performed By: #### C MP, CBC, MG, TROP, BNP #### [address] Hemogram CBC Without Diffon 08-01-2021 Erythrocyte distribution width (RBC) [Ratio] 15.9 % High 12.0-14.8 [facility] Comment on above: Order Comment: REDRA W FOR SHORT DRAW AND HEMOLYSIS Performed By: #### P P #### [address] Hematocrit (Bld) [Volume fraction] 38.9 % Normal 38.8-50.0 [facility] Comment on above: Order Comment: REDRA W FOR SHORT DRAW AND HEMOLYSIS Performed By: #### P P #### [address] Hemoglobin (Bld) [Mass/Vol] 12.9 g/dL Low 13.0-17.0 [facility] Comment on above: Order Comment: REDRA W FOR SHORT DRAW AND HEMOLYSIS Performed By: #### P P #### [address] MCH (RBC) [Entitic mass] 28.4 pg Normal 27.5-35.2 [facility] Comment on above: Order Comment: REDRA W FOR SHORT DRAW AND HEMOLYSIS Performed By: #### P P #### [address] MCV (RBC) [Entitic vol] 85.7 fL Normal 83.5-101 [facility] Comment on above: Order Comment: REDRA W FOR SHORT DRAW AND HEMOLYSIS Performed By: #### P P #### [address] Mean Corpuscular HGB Conc 33.1 g/dL Normal 32.5-35.6 [facility] Comment on above: Order Comment: REDRA W FOR SHORT DRAW AND HEMOLYSIS Performed By: #### P P #### [address] Platelet mean volume (Bld) [Entitic vol] 7.8 fL Normal 6.6-10.1 [facility] Comment on above: Order Comment: REDRA W FOR SHORT DRAW AND HEMOLYSIS Result Comment: PERF ORMED BY: [place] [address] PATHOLOGIST [employer]RARY MEDIA SPECIALIST JORDAN RODRIGUEZ M.D. Performed By: #### P P #### [address] Platelets (Bld) [#/Vol] 352 10*3/uL Normal 150-450 [facility] Comment on above: Order Comment: REDRA W FOR SHORT DRAW AND HEMOLYSIS Performed By: #### P P #### [address] RBC (Bld) [#/Vol] 4.54 10*6/uL Normal 3.90-5.60 [facility] Comment on above: Order Comment: REDRA W FOR SHORT DRAW AND HEMOLYSIS Performed By: #### P P #### [address] WBC (Bld) [#/Vol] 9.1 10*3/uL Normal 4.1-10.5 [facility] Comment on above: Order Comment: REDRA W FOR SHORT DRAW AND HEMOLYSIS Performed By: #### P P #### [address] Iron and TIBC Profileon 04-0 5-2021 % Iron Saturation 24.0 % Normal 20-50 [facility] Comment on above: Order Comment: REDRA W FOR SHORT DRAW AND HEMOLYSIS Performed By: #### P P #### [address] Iron [Mass/Vol] 47 ug/dL Normal 40-160 [facility] Comment on above: Order Comment: REDRA W FOR SHORT DRAW AND HEMOLYSIS Performed By: #### P P #### [address] [place] [address] [place] Total Iron Binding Capacity 192 ug/dL Low 255-450 [facility] Comment on above: Order Comment: REDRA W FOR SHORT DRAW AND HEMOLYSIS Performed By: #### P P #### [address] Transferrin [Mass/Vol] 137 mg/dL Low 180-380 [facility] Comment on above: Order Comment: REDRA W FOR SHORT DRAW AND HEMOLYSIS Performed By: #### P P #### [address] Magnesiumon 08-01-2021 Magnesium [Mass/Vol] 2.2 mg/dL Normal 1.6-2.6 [facility] Comment on above: Order Comment: REDRA W FOR SHORT DRAW AND HEMOLYSIS Performed By: #### P P #### [address] Parathyroid Hormone Intacton 08-01-2021 Parathyroid Hormone Intact 31.2 pg/mL Normal 12-88 [facility] Comment on above: Order Comment: Reaso n for Exam CKD (chronic kidney disease) stage 4, GFR 15-29 ml/min;Diabe Result Comment: PERF ORMED BY: [place] [address] PATHOLOGIST LIBRARY MEDIA SPECIALIST JORDAN RODRIGUEZ M.D. Performed By: #### C MP, CBC, MG, TROP, BNP #### [address] Uric Acidon 08-01-2021 Urate [Mass/Vol] 8.4 mg/dL High 2.6-7.2 [facility] Comment on above: Order Comment: REDRA W FOR SHORT DRAW AND HEMOLYSIS Performed By: #### P P #### [address] Vitamin D 25 Hydroxy Totalon 08-01-2021 Vitamin D 25 Hydroxy Total 28.2 ng/mL Low 30-100 [facility] Comment on above: Order Comment: Reaso [...] C MP, CBC, MG, TROP, BNP #### [facility] [address] [id number] [facility] Complete Pulmonary Functiono n 09-28-2020 Complete Pulmonary Function [facility] Main [place] [address] [place] [address] Pulmonary Function Signed Patient: Rashard Lyman MR#: [id number] : 1960 Acct:[id number] Age/Sex: 60 / M ADM Date: 09/28/20 Loc: RT Room: Type: [facility] Attending Dr: USMAN Stover APRN Ordering [...] to 2.21 L or 50% predicted. The PLZ22-49% is reduced at 1.92 L/sec or 54% predicted. After administration of bronchodilators, there is an insignificant 5% improvement in the forced vital capacity and 5% improvement in the FEV1. The DCN58-98% improves insignificantly by 10%. LUNG VOLUMES: Lung [...] adequate pulmonary function studies reveal evidence of arot-nx-ggvihbrf restriction without clear evidence of obstruction nor [...] MD 09/28/20 1305 Signed By: 09/28/20 1505 [facility] echo limited 1 [facility] [place] [address] Echocardiogram Signed Patient: Rashard Lyman MR#: [id number] : 1960 Acct:[id number] Age/Sex: 60 / M ADM Date: 09/06/20 Loc: Room: Type: [facility] Attending Dr: Gautam Bazan MD Ordering Provider: Gautam Bazan MD Date of Service: 09/06/20 [facility] echo limited: re assess pericardial effusions Copies to: Nancy Jackson MD, [facility] Gautam Bazan MD Weight: 354 lb Performed By: Mariana Kuo KWAKU BSA: 2.8 m2 HR: 100 Reason For [...] 57.4 ml EF(Teich): 51.3 % Transcribed By: INEZ 09/06/20 1626 Dictated By: Nancy Jackson MD[facility] 09/06/20 1232 Signed By: 09/06/20 1626 Normal [facility] Albumin [Mass/volume] in Ser um or Plasmaon 08-25-2020 Albumin [Mass/Vol] 2.0 g/dL 3.2-5.5 [facility] Basophils Auto (Bld) [#/Vol] on 08-25-2020 Basophils (Bld) [#/Vol] 0.0 10*3/uL 0.0-0.2 [facility] Basophils/100 WBC Auto (Bld) on 08-25-2020 Basophils/100 WBC (Bld) 0.1 % [facility] Blood anisocytosis detection on 08-25-2020 Anisocytosis Ql (Bld) Slight [facility] Blood hemoglobin measurement (mass/volume)on 08-25-2020 Hemoglobin (Bld) [Mass/Vol] 10.1 g/dL 13.0-17.0 [facility] Blood leukocytes automated c ount (number/volume)on 08-25-2020 WBC (Bld) [#/Vol] 12.6 10*3/uL 4.5-11.0 [facility] Blood polychromasia detectio n by light microscopyon 08-25-2020 Polychromasia LM Ql (Bld) Slight [facility] Creatinine and Glomerular fi ltration rate.predicted panel (S/P/Bld)on 08-25-2020 Creatinine [Mass/Vol] 4.06 mg/dL 0.64-1.27 [facility] ECG 12 lead ECGon 08-25-2020 ECG 12 lead ECG [facility] [place] [address] Electrocardiograph Report Signed Patient: Rashard Lyman MR#: [id number] : 1960 Acct:[id number] Age/Sex: 60 / M ADM Date: 08/18/20 Loc: Room: [address] [place] [address] Type: ADM IN Attending Dr: Gordon Ewing [...] By: MUS Dictated By: Gautam Bazan MD 08/25/20718 Signed By: 08/25/20 0951 Normal [facility] Eosinophils Auto (Bld) [#/Vo l]on 08-25-2020 Eosinophils (Bld) [#/Vol] 0.0 10*3/uL 0.0-0.45 [facility] Eosinophils/100 WBC Auto (Bl d)on 08-25-2020 Eosinophils/100 WBC (Bld) 0.1 % [facility] Erythrocyte distribution wid th Auto (RBC) [Ratio]on 08-25-2020 Erythrocyte distribution width (RBC) [Ratio] 16.6 % 12.0-14.8 [facility] Estimated glomerular filtrat ion rate (GFR) non- Americanon 08-25-2020 GFR/1.73 sq M.predicted among non-blacks MDRD (S/P/Bld) [Vol rate/Area] 15 mL/Min [facility] Glucose Glucometer (BldC) [M ass/Vol]on 08-25-2020 Glucose [Mass/Vol] 122 mg/dL [facility] Comment on above: Random Glucose Refer ence Range is dependent on time and content of last meal. Glucose of more than 200 mg/dL in a nonstressed, ambulatory subject supports the diagnosis of Diabetes Mellitus. Glucose Poct Glucometerson 0 08-25-2020 Commemt1 Glu2: Cleaned Meter Normal [facility] Comment on above: Result Comment: PERF ORMED BY: [place] [address] PATHOLOGIST LIBRARY MEDIA SPECIALIST JORDAN RODRIGUEZ M.D. Performed By: #### P P #### [address] Glucose [Mass/Vol] 122 mg/dL Normal [facility] Comment on above: Result Comment: [place] [facility] Glucose Reference Range is dependent on time and content of last meal. Glucose of more than 200 mg/dL in a nonstressed, ambulatory subject supports the diagnosis of Diabetes Mellitus. Performed By: #### P P #### [facility] [address] [place] [address] Commemt1 Glu2: Cleaned Meter [facility] Comment on above: Result Comment: PERF ORMED BY: [place] [address] PATHOLOGIST LIBRARY MEDIA SPECIALIST JORDAN RODRIGUEZ M.D. Performed By: #### V BG #### Point of Care testing , Glucose [Mass/Vol] 104 mg/dL Normal [facility] Comment on above: Result Comment: [place] [facility] Glucose Reference Range is dependent on time and content of last meal. Glucose of more than 200 mg/dL in a nonstressed, ambulatory subject supports the diagnosis of Diabetes Mellitus. Performed By: #### V BG #### Point of Care testing , Glucose [Mass/Vol] 115 mg/dL Normal [facility] Comment on above: Result Comment: [place] [facility] Glucose Reference Range is dependent on time and content of last meal. Glucose of more than 200 mg/dL in a nonstressed, ambulatory subject supports the diagnosis of Diabetes Mellitus. PERFORMED BY: [place] [address] PATHOLOGIST LIBRARY MEDIA SPECIALIST JORDAN RODRIGUEZ M.D. Performed By: #### V BG #### Point of Care testing , Hematocrit Auto (Bld) [Volum e fraction]on 08-25-2020 Hematocrit (Bld) [Volume fraction] 31.7 % 38.8-50.0 [facility] Laboratory - Hematology and Cell countson 08-25-2020 Nucleated RBC/100 WBC (Bld) [Ratio] 0.2 % 0-0.5 [facility] Lymphocytes Auto (Bld) [#/Vo l]on 08-25-2020 Lymphocytes (Bld) [#/Vol] 1.1 10*3/uL 1.00-4.8 [facility] Lymphocytes/100 WBC Auto (Bl d)on 08-25-2020 Lymphocytes/100 WBC (Bld) 8.9 % [facility] MCH Auto (RBC) [Entitic mass ]on 08-25-2020 MCH (RBC) [Entitic mass] 26.2 pg 27.5-35.2 [facility] MCHC Auto (RBC) [Mass/Vol]on 08-25-2020 MCHC (RBC) [Mass/Vol] 31.9 g/dL 32.5-35.6 [facility] MCV Auto (RBC) [Entitic vol] on 08-25-2020 MCV (RBC) [Entitic vol] 82.3 fL 83.5-101 [facility] Monocytes Auto (Bld) [#/Vol] on 08-25-2020 Monocytes (Bld) [#/Vol] 1.2 10*3/uL 0.0-0.8 [facility] Monocytes/100 WBC Auto (Bld) on 08-25-2020 Monocytes/100 WBC (Bld) 9.6 % [facility] Neutrophils Auto (Bld) [#/Vo l]on 08-25-2020 Neutrophils (Bld) [#/Vol] 10.2 10*3/uL 1.8-7.7 [facility] Neutrophils/100 WBC Auto (Bl d)on 08-25-2020 Neutrophils/100 WBC (Bld) 81.3 % [facility] No Panel Informationon 08-25 Bedside Glucose Comment Glu2: cleaned meter [facility] Estimated GFR () 18 mL/Min [facility] Comment on above: GFR estimated refere nce range: According to KDOQI guidelines, <60 ml/min/1.73m2 is sufficient to diagnose a patient with chronic kidney disease. Pharmacy Creatinine Clearance (Chem 31.84 [facility] Platelet Estimate Normal Normal [facility] Platelet Morphology Comment Normal Normal [facility] Phosphate [Mass/volume] in S miki or Plasmaon 08-25-2020 Phosphate [Mass/Vol] 5.3 mg/dL 2.5-4.6 [facility] Platelet mean volume Auto (B ld) [Entitic vol]on 08-25-2020 Platelet mean volume (Bld) [Entitic vol] 7.1 fL 6.6-10.1 [facility] Platelets Auto (Bld) [#/Vol] on 08-25-2020 Platelets (Bld) [#/Vol] 388 10*3/uL 150-450 [facility] RBC Auto (Bld) [#/Vol]on RBC (Bld) [#/Vol] 3.85 10*6/uL 3.90-5.60 [facility] RBC morphologyon 08-25-2020 RBC morphology finding Nom (Bld) N/A [facility] Renal Function Panelon 08-25 Albumin [Mass/Vol] 2.0 g/dL Low 3.2-5.5 [facility] Comment on above: Performed By: #### V BG #### Point of Care testing , Calcium [Mass/Vol] 8.7 mg/dL Normal 8.2-10.2 [facility] Comment on above: Performed By: #### V BG #### Point of Care testing , Chloride [Moles/Vol] 99 mmol/L Normal 95-114 [facility] Comment on above: Performed By: #### V BG #### Point of Care testing , CO2 [Moles/Vol] 26.2 mmol/L Normal 22.0-30.0 [facility] Comment on above: Performed By: #### V BG #### Point of Care testing , Creatinine [Mass/Vol] 4.06 mg/dL High 0.64-1.27 [facility] Comment on above: Performed By: #### V BG #### Point of Care testing , Creatinine Clr Calc Pharmacy 31.84 Normal [facility] Comment on above: Result Comment: PERF ORMED BY: [facility] [place] [address] PATHOLOGIST LIBRARY MEDIA SPECIALIST JORDAN RODRIGUEZ M.D. Performed By: #### V BG #### Point of Care testing , Estimated GFR ( Camilla 18 [facility] Comment on above: Result Comment: GFR estimated reference range: According to KDOQI guidelines, <60 ml/min/1.73m2 is sufficient to diagnose a patient with chronic kidney disease. Performed By: #### V BG #### Point of Care testing , Estimated GFR (Non- Am 15 [facility] Comment on above: Performed By: #### V BG #### Point of Care testing , Glucose [Mass/Vol] 113 mg/dL High 70-100 [facility] Comment on above: Result Comment: [place] [facility] Glucose Reference Range is dependent on time and content of last meal. Glucose of more than 200 mg/dL in a nonstressed, ambulatory subject supports the diagnosis of Diabetes Mellitus. ADA recommended reference range Performed By: #### V BG #### Point of Care testing , Phosphate [Mass/Vol] 5.3 mg/dL High 2.5-4.6 [facility] Comment on above: Performed By: #### V BG #### Point of Care testing , Potassium [Moles/Vol] 4.6 mmol/L Normal 3.5-5.1 [facility] Comment on above: Performed By: #### V BG #### Point of Care testing , Sodium [Moles/Vol] 135 mmol/L Low 136-146 [facility] Comment on above: Performed By: #### V BG #### Point of Care testing , Urea nitrogen [Mass/Vol] 75 mg/dL High 9-23 [facility] Comment on above: Performed By: #### V BG #### Point of Care testing , Scan and CBCon 08-25-2020 Anisocytosis Ql (Bld) Slight [facility] Comment on above: Performed By: #### V BG #### Point of Care testing , Basophils (Bld) [#/Vol] 0.0 10*3/uL Normal 0.0-0.2 [facility] Comment on above: Performed By: #### V BG #### Point of Care testing , Basophils/100 WBC (Bld) 0.1 % Normal . [facility] Comment on above: Performed By: #### V BG #### Point of Care testing , Eosinophils (Bld) [#/Vol] 0.0 10*3/uL Normal 0.0-0.45 [facility] Comment on above: Performed By: #### V BG #### Point of Care testing , Eosinophils/100 WBC (Bld) 0.1 % Normal . [facility] Comment on above: Performed By: #### V BG #### Point of Care testing , Erythrocyte distribution width (RBC) [Ratio] 16.6 % High 12.0-14.8 [facility] Comment on above: Performed By: #### V BG #### Point of Care testing , Hematocrit (Bld) [Volume fraction] 31.7 % Low 38.8-50.0 [facility] Comment on above: Performed By: #### V BG #### Point of Care testing , Hemoglobin (Bld) [Mass/Vol] 10.1 g/dL Low 13.0-17.0 [facility] Comment on above: Performed By: #### V BG #### Point of Care testing , Lymphocytes (Bld) [#/Vol] 1.1 10*3/uL Normal 1.00-4.8 [facility] Comment on above: Performed By: #### V BG #### Point of Care testing , Lymphocytes/100 WBC (Bld) 8.9 % Normal . [facility] Comment on above: Performed By: #### V BG #### Point of Care testing , MCH (RBC) [Entitic mass] 26.2 pg Low 27.5-35.2 [facility] Comment on above: Performed By: #### V BG #### Point of Care testing , MCV (RBC) [Entitic vol] 82.3 fL Low 83.5-101 [facility] Comment on above: Performed By: #### V BG #### Point of Care testing , Mean Corpuscular HGB Conc 31.9 g/dL Low 32.5-35.6 [facility] Comment on above: Performed By: #### V BG #### Point of Care testing , Monocytes (Bld) [#/Vol] 1.2 10*3/uL High 0.0-0.8 [facility] Comment on above: Performed By: #### V BG #### Point of Care testing , Monocytes/100 WBC (Bld) 9.6 % Normal . [facility] Comment on above: Performed By: #### V BG #### Point of Care testing , Neutrophils (Bld) [#/Vol] 10.2 10*3/uL High 1.8-7.7 [facility] Comment on above: Performed By: #### V BG #### Point of Care testing , Neutrophils/100 WBC (Bld) 81.3 % Normal . [facility] Comment on above: Performed By: #### V BG #### Point of Care testing , Nucleated RBC/100 WBC (Bld) [Ratio] 0.2 % Normal 0-0.5 [facility] Comment on above: Performed By: #### V BG #### Point of Care testing , Platelet Estimate Normal Normal Normal [facility] Comment on above: Performed By: #### V BG #### Point of Care testing , Platelet mean volume (Bld) [Entitic vol] 7.1 fL Normal 6.6-10.1 [facility] Comment on above: Performed By: #### V BG #### Point of Care testing , Platelet Morphology Normal Normal Normal [facility] Comment on above: Result Comment: PERF ORMED BY: [facility] [address] [place] [address] PATHOLOGIST LIBRARY MEDIA SPECIALIST JORDAN RODRIGUEZ M.D. Performed By: #### V BG #### Point of Care testing , Platelets (Bld) [#/Vol] 388 10*3/uL Normal 150-450 [facility] Comment on above: Performed By: #### V BG #### Point of Care testing , Polychromasia Slight Normal [facility] Comment on above: Performed By: #### V BG #### Point of Care testing , RBC (Bld) [#/Vol] 3.85 10*6/uL Low 3.90-5.60 [facility] Comment on above: Performed By: #### V BG #### Point of Care testing , WBC (Bld) [#/Vol] 12.6 10*3/uL High 4.5-11.0 [facility] Comment on above: Performed By: #### V BG #### Point of Care testing , Serum or plasma calcium joel urement (mass/volume)on 08-25-2020 Calcium [Mass/Vol] 8.7 mg/dL 8.2-10.2 [facility] Serum or plasma chloride faraz surement (moles/volume)on 08-25-2020 Chloride [Moles/Vol] 99 mmol/L 95-114 [facility] Serum or plasma glucose joel urement (mass/volume)on 08-25-2020 Glucose [Mass/Vol] 113 mg/dL 70-100 [facility] Comment on above: ADA recommended refe rence rangeRandom Glucose Reference Range is dependent on time and content of last meal. Glucose of more than 200 mg/dL in a nonstressed, ambulatory subject supports the diagnosis of Diabetes Mellitus. Serum or plasma potassium me asurement (moles/volume)on 08-25-2020 Potassium [Moles/Vol] 4.6 mmol/L 3.5-5.1 [facility] Serum or plasma sodium measu rement (moles/volume)on 08-25-2020 Sodium [Moles/Vol] 135 mmol/L 136-146 [facility] Serum or plasma total carbon dioxide measurement (moles/volume)on 08-25-2020 CO2 [Moles/Vol] 26.2 mmol/L 22.0-30.0 [facility] Serum or plasma urea nitroge n measurement (mass/volume)on 08-25-2020 Urea nitrogen [Mass/Vol] 75 mg/dL 9- [facility] Diff and CBCon 08-24-2020 Anisocytosis Ql (Bld) Slight Normal [facility] Comment on above: Performed By: #### C OVID-19 LIAT, SOFIANEG #### [facility] [address] [place] [address] Band form neutrophils/100 WBC (Bld) 1 % Normal 0-5 [facility] Comment on above: Performed By: #### C OVID-19 LIAT, SOFIANEG #### [address] Basophilic stippling LM Ql (Bld) Slight Normal [facility] Comment on above: Performed By: #### C OVID-19 LIAT, SOFIANEG #### [address] Erythrocyte distribution width (RBC) [Ratio] 16.6 % High 12.0-14.8 [facility] Comment on above: Performed By: #### C OVID-19 LIAT, SOFIANEG #### [address] Hematocrit (Bld) [Volume fraction] 30.0 % Low 38.8-50.0 [facility] Comment on above: Performed By: #### C OVID-19 LIAT, SOFIANEG #### [address] Hemoglobin (Bld) [Mass/Vol] 10.1 g/dL Low 13.0-17.0 [facility] Comment on above: Performed By: #### C OVID-19 LIAT, SOFIANEG #### [address] Lymphocytes/100 WBC (Bld) 6 % Low 18-42 [facility] Comment on above: Performed By: #### C OVID-19 LIAT, SOFIANEG #### [address] MCH (RBC) [Entitic mass] 27.5 pg Normal 27.5-35.2 [facility] Comment on above: Performed By: #### C OVID-19 LIAT, SOFIANEG #### [facility] [address] [place] [address] MCV (RBC) [Entitic vol] 81.9 fL Low 83.5-101 [facility] Comment on above: Performed By: #### C OVID-19 LIAT, SOFIANEG #### [facility] [address] [place] [address] Mean Corpuscular HGB Conc 33.6 g/dL Normal 32.5-35.6 [facility] Comment on above: Performed By: #### C OVID-19 LIAT, SOFIANEG #### [facility] [address] [place] [address] Metamyelocytes 1 % High 0-0 [facility] Comment on above: Performed By: #### C OVID-19 LIAT, SOFIANEG #### [facility] [address] [place] [address] Monocytes/100 WBC (Bld) 4 % Normal 2-11 [facility] Comment on above: Performed By: #### C OVID-19 LIAT, SOFIANEG #### [facility] [address] [place] [address] Myelocytes 1 % High 0-0 [facility] Comment on above: Performed By: #### C OVID-19 LIAT, SOFIANEG #### [facility] [address] [place] [address] Nucleated RBC/100 WBC (Bld) [Ratio] 0.0 % Normal 0-0.5 [facility] Comment on above: Result Comment: PERF ORMED BY: [place] [address] PATHOLOGIST LIBRARY MEDIA SPECIALIST JORDAN RODRIGUEZ M.D. Performed By: #### C OVID-19 LIAT, SOFIANEG #### [facility] [address] [place] [address] Platelet Estimate Normal Normal Normal [facility] Comment on above: Performed By: #### C OVID-19 LIAT, SOFIANEG #### [facility] [address] [place] [address] Platelet mean volume (Bld) [Entitic vol] 7.0 fL Normal 6.6-10.1 [facility] Comment on above: Performed By: #### C OVID-19 LIAT, SOFIANEG #### [facility] [address] [place] [address] Platelet Morphology Normal Normal Normal [facility] Comment on above: Result Comment: PERF ORMED BY: [place] [address] PATHOLOGIST LIBRARY MEDIA SPECIALIST JORDAN RODRIGUEZ M.D. Performed By: #### C OVID-19 LIAT, SOFIANEG #### [facility] [address] [place] [address] Platelets (Bld) [#/Vol] 359 10*3/uL Normal 150-450 [facility] Comment on above: Performed By: #### C OVID-19 LIAT, SOFIANEG #### [facility] [address] [place] [address] Polychromasia Slight Normal [facility] Comment on above: Performed By: #### C OVID-19 LIAT, SOFIANEG #### [facility] [address] [place] [address] RBC (Bld) [#/Vol] 3.66 10*6/uL Low 3.90-5.60 [facility] Comment on above: Performed By: #### C OVID-19 LIAT, SOFIANEG #### [facility] [address] [place] [address] [place] Rouleaux Slight Normal [facility] Comment on above: Performed By: #### C OVID-19 LIAT, SOFIANEG #### [facility] [address] [place] [address] Segmented neutrophils/100 WBC (Bld) 87 % High 50-70 [facility] Comment on above: Performed By: #### C OVID-19 LIAT, SOFIANEG #### [facility] [address] [place] [address] WBC (Bld) [#/Vol] 11.2 10*3/uL High 4.5-11.0 [facility] Comment on above: Performed By: #### C OVID-19 LIAT SOFVICKIEG #### [facility] [address] ECG 12 lead ECGon 08-24-2020 ECG 12 lead ECG [facility] Main [place] [address] [place] [address] Electrocardiograph Report Signed Patient: Rashard Lyman MR#: [id number] : 1960 Acct:[id number] Age/Sex: 60 / M ADM Date: 08/18/20 Loc: Room: [address] [place] [address] Type: ADM IN Attending Dr: Gordon Ewing [...] Signed By: 08/24/20 1049 Normal [facility] Erythrocyte basophilic stipp ling detectionon 08-24-2020 Basophilic stippling LM Ql (Bld) Slight [facility] Glucose Poct Glucometerson 0 08-24-2020 Glucose [Mass/Vol] 129 mg/dL Normal [facility] Comment on above: Result Comment: [place] Glucose Reference Range is dependent on time and content of last meal. Glucose of more than 200 mg/dL in a nonstressed, ambulatory subject supports the diagnosis of Diabetes Mellitus. PERFORMED BY: [facility] [address] [place] [id number] PATHOLOGIST LIBRARY MEDIA SPECIALIST JORDAN RODRIGUEZ M.D. Performed By: #### V BG #### Point of Care testing , Commemt1 Glu2: Cleaned Meter Normal [facility] Comment on above: Result Comment: PERF ORMED BY: [facility] [address] [place] [address] PATHOLOGIST LIBRARY MEDIA SPECIALIST JORDAN RODRIGUEZ M.D. Performed By: #### V BG #### Point of Care testing , Glucose [Mass/Vol] 108 mg/dL Normal [facility] Comment on above: Result Comment: [place] om Glucose Reference Range is dependent on time and content of last meal. Glucose of more than 200 mg/dL in a nonstressed, ambulatory subject supports the diagnosis of Diabetes Mellitus. Performed By: #### V BG #### Point of Care testing , Glucose [Mass/Vol] 60 mg/dL Off scale low [facility] Comment on above: Result Comment: [place] om Glucose Reference Range is dependent on time and content of last meal. Glucose of more than 200 mg/dL in a nonstressed, ambulatory subject supports the diagnosis of Diabetes Mellitus. PERFORMED BY: [facility] [address] [place] [address] PATHOLOGIST LIBRARY MEDIA SPECIALIST JORDAN RODRIGUEZ M.D. Performed By: #### V BG #### Point of Care testing , Glucose [Mass/Vol] 130 mg/dL Normal [facility] Comment on above: Result Comment: [place] om Glucose Reference Range is dependent on time and content of last meal. Glucose of more than 200 mg/dL in a nonstressed, ambulatory subject supports the diagnosis of Diabetes Mellitus. PERFORMED BY: [facility] [address] [place] [place] [id number] PATHOLOGIST LIBRARY MEDIA SPECIALIST JORDAN RODRIGUEZ M.D. Performed By: #### V BG #### Point of Care testing , Glucose [Mass/Vol] 72 mg/dL Normal [facility] Comment on above: Result Comment: [place] om Glucose Reference Range is dependent on time and content of last meal. Glucose of more than 200 mg/dL in a nonstressed, ambulatory subject supports the diagnosis of Diabetes Mellitus. PERFORMED BY: [place] [address] PATHOLOGIST LIBRARY MEDIA SPECIALIST JORDAN RODRIGUEZ M.D. Performed By: #### C OVID-19 BALJEET JOSUEEG #### [address] Glucose [Mass/Vol] 96 mg/dL Normal [facility] Comment on above: Result Comment: [facility] Glucose Reference Range is dependent on time and content of last meal. Glucose of more than 200 mg/dL in a nonstressed, ambulatory subject supports the diagnosis of Diabetes Mellitus. PERFORMED BY: [place] [address] PATHOLOGIST LIBRARY MEDIA SPECIALIST JORDAN RODRIGUEZ M.D. Performed By: #### C OVID-19 BARB JOSUEIANEG #### [address] Laboratory - Hematology and Cell countson 08-24-2020 Band form neutrophils/100 WBC (Bld) 1 % 0-5 [facility] Lymphocytes/100 WBC Auto (Bl d)on 08-24-2020 Lymphocytes/100 WBC (Bld) 6 % 18-42 [facility] Metamyelocytes/100 WBC Manua l cnt (Bld)on 08-24-2020 Metamyelocytes/100 WBC (Bld) 1 % 0-0 [facility] Monocytes/100 WBC Manual cnt (Bld)on 08-24-2020 Monocytes/100 WBC (Bld) 4 % 2-11 [facility] Myelocytes/100 WBC Manual cn t (Bld)on 08-24-2020 Myelocytes/100 WBC (Bld) 1 % 0-0 [facility] No Panel Informationon 08-24 Rouleau Slight [facility] Renal Function Panelon 08-24 Albumin [Mass/Vol] 1.9 g/dL Low 3.2-5.5 [facility] Comment on above: Performed By: #### C OVID-19 LIAT SOFIANEG #### [place] [id number] [place] Calcium [Mass/Vol] 8.8 mg/dL Normal 8.2-10.2 [facility] Comment on above: Performed By: #### C OVID-19 LIAT, SOFIANEG #### [facility] [address] Chloride [Moles/Vol] 99 mmol/L Normal 95-114 [facility] Comment on above: Performed By: #### C OVID-19 LIAT, SOFIANEG #### [facility] [address] [place] [address] CO2 [Moles/Vol] 24.4 mmol/L Normal 22.0-30.0 [facility] Comment on above: Performed By: #### C OVID-19 LIAT, SOFIANEG #### [address] Creatinine [Mass/Vol] 4.21 mg/dL High 0.64-1.27 [facility] Comment on above: Performed By: #### C OVID-19 LIAT, SOFIANEG #### [facility] [address] [place] [address] [place] Creatinine Clr Calc Pharmacy 30.71 [facility] Comment on above: Result Comment: PERF ORMED BY: [place] [address] PATHOLOGIST LIBRARY MEDIA SPECIALIST JORDAN RODRIGUEZ M.D. Performed By: #### C OVID-19 LIAT, SOFIANEG #### [facility] [address] [place] [address] Estimated GFR ( Camilla 18 [facility] Comment on above: Result Comment: GFR estimated reference range: According to KDOQI guidelines, <60 ml/min/1.73m2 is sufficient to diagnose a patient with chronic kidney disease. Performed By: #### C OVID-19 LIAT, SOFIANEG #### [facility] [address] [place] [address] [place] Estimated GFR (Non- Am 15 [facility] Comment on above: Performed By: #### C OVID-19 LIAT, SOFIANEG #### [facility] [address] [place] [address] [place] Glucose [Mass/Vol] 79 mg/dL Normal 70-100 [facility] Comment on above: Result Comment: [facility] Glucose Reference Range is dependent on time and content of last meal. Glucose of more than 200 mg/dL in a nonstressed, ambulatory subject supports the diagnosis of Diabetes Mellitus. ADA recommended reference range Performed By: #### C OVID-19 LIAT SOFIANEG #### [facility] [address] [place] [address] [place] Phosphate [Mass/Vol] 5.9 mg/dL High 2.5-4.6 [facility] Comment on above: Performed By: #### C OVID-19 LIAT SOFIANEG #### [facility] [address] [place] [address] [place] Potassium [Moles/Vol] 4.2 mmol/L Normal 3.5-5.1 [facility] Comment on above: Performed By: #### C OVID-19 LIAT SOFIANEG #### [facility] [address] [place] [address] [place] Sodium [Moles/Vol] 134 mmol/L Low 136-146 [facility] Comment on above: Performed By: #### C OVID-19 LIAT SOFIANEG #### [facility] [address] [place] [address] [place] Urea nitrogen [Mass/Vol] 69 mg/dL High 9-23 [facility] Comment on above: Performed By: #### C OVID-19 LIAT, SOFIANEG #### [facility] [address] [place] [id number] [place] Segmented neutrophils/100 WB C Manual cnt (Bld)on 08-24-2020 Segmented neutrophils/100 WBC (Bld) 87 % 50-70 [facility] KILLIAN Antinuclear Antibodieson 08-23-2020 Antinuclear Abs, IFA Negative Normal . [facility] Comment on above: Result Comment: Nega tive <1:80 Borderline 1:80 Positive >1:80 Performed at: - [address] [id number] Nuclear Plant Equipment Operator: Mata Brian PhD, Phone: [phone] PERFORMED BY: [place] [address] PATHOLOGIST LIBRARY MEDIA SPECIALIST JORDAN RODRIGUEZ M.D. Performed By: #### P P #### [address] Complete Blood Count Auto Di ffon 08-23-2020 Basophils (Bld) [#/Vol] 0.0 10*3/uL Normal 0.0-0.2 [facility] Comment on above: Result Comment: PERF ORMED BY: [place] [address] PATHOLOGIST LIBRARY MEDIA SPECIALIST JORDAN RODRIGUEZ M.D. Performed By: #### C OVID-19 LIAT, SOFIANEG #### [address] Basophils/100 WBC (Bld) 0.3 % Normal . [facility] Comment on above: Performed By: #### C OVID-19 LIAT, SOFIANEG #### [address] Eosinophils (Bld) [#/Vol] 0.0 10*3/uL Normal 0.0-0.45 [facility] Comment on above: Performed By: #### C OVID-19 LIAT, SOFIANEG #### [address] Eosinophils/100 WBC (Bld) 0.1 % Normal . [facility] Comment on above: Performed By: #### C OVID-19 LIAT, SOFIANEG #### [address] Erythrocyte distribution width (RBC) [Ratio] 16.3 % High 12.0-14.8 [facility] Comment on above: Performed By: #### C OVID-19 LIAT, SOFIANEG #### [address] Hematocrit (Bld) [Volume fraction] 29.4 % Low 38.8-50.0 [facility] Comment on above: Performed By: #### C OVID-19 LIAT, SOFIANEG #### [address] Hemoglobin (Bld) [Mass/Vol] 9.4 g/dL Low 13.0-17.0 [facility] Comment on above: Performed By: #### C OVID-19 LIAT, SOFIANEG #### [address] Lymphocytes (Bld) [#/Vol] 0.5 10*3/uL Low 1.00-4.8 [facility] Comment on above: Performed By: #### C OVID-19 LIAT, SOFIANEG #### [address] Lymphocytes/100 WBC (Bld) 4.1 % Normal . [facility] Comment on above: Performed By: #### C OVID-19 LIAT, SOFIANEG #### [address] MCH (RBC) [Entitic mass] 26.2 pg Low 27.5-35.2 [facility] Comment on above: Performed By: #### C OVID-19 LIAT, SOFIANEG #### [address] MCV (RBC) [Entitic vol] 82.4 fL Low 83.5-101 [facility] Comment on above: Performed By: #### C OVID-19 LIAT, SOFIANEG #### [address] Mean Corpuscular HGB Conc 31.8 g/dL Low 32.5-35.6 [facility] Comment on above: Performed By: #### C OVID-19 LIAT, SOFIANEG #### [address] Monocytes (Bld) [#/Vol] 0.6 10*3/uL Normal 0.0-0.8 [facility] Comment on above: Performed By: #### C OVID-19 LIAT, SOFIANEG #### [facility] [address] [place] [address] [place] Monocytes/100 WBC (Bld) 4.9 % Normal . [facility] Comment on above: Performed By: #### C OVID-19 LIAT, SOFIANEG #### [facility] [address] Neutrophils (Bld) [#/Vol] 11.2 10*3/uL High 1.8-7.7 [facility] Comment on above: Performed By: #### C OVID-19 LIAT, SOFIANEG #### [facility] [address] Neutrophils/100 WBC (Bld) 90.6 % Normal . [facility] Comment on above: Performed By: #### C OVID-19 LIAT, SOFIANEG #### [facility] [address] [place] [address] [place] Nucleated RBC/100 WBC (Bld) [Ratio] 0.2 % Normal 0-0.5 [facility] Comment on above: Performed By: #### C OVID-19 LIAT, SOFIANEG #### [address] Platelet mean volume (Bld) [Entitic vol] 8.0 fL Normal 6.6-10.1 [facility] Comment on above: Performed By: #### C OVID-19 LIAT, SOFIANEG #### [facility] [address] [place] [address] [place] Platelets (Bld) [#/Vol] 303 10*3/uL Normal 150-450 [facility] Comment on above: Performed By: #### C OVID-19 LIAT, SOFIANEG #### [facility] [address] [place] [address] [place] RBC (Bld) [#/Vol] 3.57 10*6/uL Low 3.90-5.60 [facility] Comment on above: Performed By: #### C OVID-19 LIAT, SOFIANEG #### [facility] [address] [place] [address] [place] WBC (Bld) [#/Vol] 12.4 10*3/uL High 4.5-11.0 [facility] Comment on above: Performed By: #### C OVID-19 DELGADO JOSUE #### [facility] [address] ECG 12 lead ECGon 08-23-2020 ECG 12 lead ECG [facility] Main [place] [address] [place] [address] Electrocardiograph Report Signed Patient: Rashard Lyman MR#: [id number] : 1960 Acct:[id number] Age/Sex: 60 / M ADM Date: 08/18/20 Loc: Room: [address] [place] [address] Type: ADM IN Attending Dr: Gordon Ewing [...] Signed By: 08/23/20 1047 Normal [facility] Glucose Poct Glucometerson 0 08-23-2020 Glucose [Mass/Vol] 160 mg/dL Normal [facility] Comment on above: Result Comment: [place] Glucose Reference Range is dependent on time and content of last meal. Glucose of more than 200 mg/dL in a nonstressed, ambulatory subject supports the diagnosis of Diabetes Mellitus. PERFORMED BY: [place] [address] PATHOLOGIST LIBRARY MEDIA SPECIALIST JORDAN RODRIGUEZ M.D. Performed By: #### C OVID-19 LIAT, SOFIANEG #### [address] Glucose [Mass/Vol] 212 mg/dL Normal [facility] Comment on above: Result Comment: [place] om Glucose Reference Range is dependent on time and content of last meal. Glucose of more than 200 mg/dL in a nonstressed, ambulatory subject supports the diagnosis of Diabetes Mellitus. PERFORMED BY: [place] [address] PATHOLOGIST LIBRARY MEDIA SPECIALIST JORDAN RODRIGUEZ M.D. Performed By: #### C OVID-19 LIAT, SOFIANEG #### [address] Glucose [Mass/Vol] 159 mg/dL Normal [facility] Comment on above: Result Comment: [place] om Glucose Reference Range is dependent on time and content of last meal. Glucose of more than 200 mg/dL in a nonstressed, ambulatory subject supports the diagnosis of Diabetes Mellitus. PERFORMED BY: [place] [address] PATHOLOGIST LIBRARY MEDIA SPECIALIST JORDAN RODRIGUEZ M.D. Performed By: #### C OVID-19 LIAT, SOFIANEG #### [address] Glucose [Mass/Vol] 73 mg/dL Normal [facility] Comment on above: Result Comment: [place] om Glucose Reference Range is dependent on time and content of last meal. Glucose of more than 200 mg/dL in a nonstressed, ambulatory subject supports the diagnosis of Diabetes Mellitus. PERFORMED BY: [place] [address] PATHOLOGIST LIBRARY MEDIA SPECIALIST JORDAN RODRIGUEZ M.D. Performed By: #### C OVID-19 LIAT, SOFIANEG #### [place] [address] [place] Commemt1 Glu2: Cleaned Meter [facility] Comment on above: Result Comment: PERF ORMED BY: [place] [address] PATHOLOGIST LIBRARY MEDIA SPECIALIST JORDAN RODRIGUEZ M.D. Performed By: #### C OVID-19 LIAT, SOFIANEG #### [facility] [address] [place] [address] Glucose [Mass/Vol] 88 mg/dL Normal [facility] Comment on above: Result Comment: [place] om Glucose Reference Range is dependent on time and content of last meal. Glucose of more than 200 mg/dL in a nonstressed, ambulatory subject supports the diagnosis of Diabetes Mellitus. Performed By: #### C OVID-19 LIAT, SOFIANEG #### [address] Commemt1 Glu2: Cleaned Meter [facility] Comment on above: Result Comment: PERF ORMED BY: [place] [address] PATHOLOGIST LIBRARY MEDIA SPECIALIST JORDAN RODRIGUEZ M.D. Performed By: #### C OVID-19 LIAT, SOFIANEG #### [address] Glucose [Mass/Vol] 69 mg/dL Normal [facility] Comment on above: Result Comment: [place] om Glucose Reference Range is dependent on time and content of last meal. Glucose of more than 200 mg/dL in a nonstressed, ambulatory subject supports the diagnosis of Diabetes Mellitus. Performed By: #### C OVID-19 LIAT, SOFIANEG #### [facility] [address] [place], [place] [id number] [facility] Commemt1 [facility] Comment on above: Result Comment: Glu2 : Will Repeat Test Performed By: #### C OVID-19 LIAT, SOFIANEG #### [facility] [address] [place] [address] Commemt[address] NOT[address] DR/RN Normal [facility] Comment on above: Performed By: #### C OVID-19 LIAT SOFIANEG #### [facility] [address] Commemt3 Cleaned Meter Normal [facility] Comment on above: Result Comment: PERF ORMED BY: [place] [address] PATHOLOGIST LIBRARY MEDIA SPECIALIST JORDAN RODRIGUEZ M.D. Performed By: #### C OVID-19 LIAT, SOFIANEG #### [facility] [address] Glucose [Mass/Vol] 59 mg/dL Off scale low [facility] Comment on above: Result Comment: [facility] Glucose Reference Range is dependent on time and content of last meal. Glucose of more than 200 mg/dL in a nonstressed, ambulatory subject supports the diagnosis of Diabetes Mellitus. Performed By: #### C OVID-19 LIAT, SOFIANEG #### [facility] [address] [place] [address] No Panel Informationon 08-23 Bedside Glucose #[address]/rn [facility] Bedside Glucose #3 Comment Cleaned meter [facility] Renal Function Panelon 08-23 Albumin [Mass/Vol] 1.9 g/dL Low 3.2-5.5 [facility] Comment on above: Performed By: #### C OVID-19 LIAT, SOFIANEG #### [facility] [address] [place] [address] Calcium [Mass/Vol] 8.7 mg/dL Normal 8.2-10.2 [facility] Comment on above: Performed By: #### C OVID-19 LIAT, SOFIANEG #### [facility] [address] [place] [address] [place] Chloride [Moles/Vol] 95 mmol/L Normal 95-114 [facility] Comment on above: Performed By: #### C OVID-19 LIAT, SOFIANEG #### [facility] [address] [place] [address] [place] CO2 [Moles/Vol] 22.0 mmol/L Normal 22.0-30.0 [facility] Comment on above: Performed By: #### C OVID-19 LIAT, SOFIANEG #### [facility] [address] [place] [address] [place] Creatinine [Mass/Vol] 4.79 mg/dL High 0.64-1.27 [facility] Comment on above: Performed By: #### C OVID-19 LIAT, SOFIANEG #### [facility] [address] [place] [address] [place] Creatinine Clr Calc Pharmacy 27.33 [facility] Comment on above: Result Comment: PERF ORMED BY: [place] [address] PATHOLOGIST LIBRARY MEDIA SPECIALIST JORDAN RODRIGUEZ M.D. Performed By: #### C OVID-19 LIAT, SOFIANEG #### [facility] [address] Estimated GFR ( Camilla 15 [facility] Comment on above: Result Comment: GFR estimated reference range: According to KDOQI guidelines, <60 ml/min/1.73m2 is sufficient to diagnose a patient with chronic kidney disease. Performed By: #### C OVID-19 LIAT, SOFIANEG #### [facility] [address] [place] [address] [place] Estimated GFR (Non- Am 13 [facility] Comment on above: Performed By: #### C OVID-19 LIAT, SOFIANEG #### [facility] [address] [place] [address] [place] Glucose [Mass/Vol] 78 mg/dL Normal 70-100 [facility] Comment on above: Result Comment: [place] Glucose Reference Range is dependent on time and content of last meal. Glucose of more than 200 mg/dL in a nonstressed, ambulatory subject supports the diagnosis of Diabetes Mellitus. ADA recommended reference range Performed By: #### C OVID-19 LIAT, SOFIANEG #### [facility] [address] Phosphate [Mass/Vol] 7.5 mg/dL High 2.5-4.6 [facility] Comment on above: Performed By: #### C OVID-19 LIAT, SOFIANEG #### [facility] [address] Potassium [Moles/Vol] 4.4 mmol/L Normal 3.5-5.1 [facility] Comment on above: Performed By: #### C OVID-19 LIAT, SOFIANEG #### [facility] [address] Sodium [Moles/Vol] 131 mmol/L Low 136-146 [facility] Comment on above: Performed By: #### C OVID-19 LIAT, SOFIANEG #### [facility] [address] Urea nitrogen [Mass/Vol] 63 mg/dL High 9-23 [facility] Comment on above: Performed By: #### C OVID-19 LIAT, SOFIANEG #### [facility] [address] Rheumatoid Factoron 08-24-19 21 Rheumatoid Factor 20.6 High 0.0-13.9 [facility] Comment on above: Result Comment: Perf ormed at: [facility] [address] [place], [place] [id number] Nuclear Plant Equipment Operator: Mata Brian PhD, Phone: [phone] Performed By: #### P P #### [facility] [address] Serum nuclear antibody titer on 08-23-2020 Nuclear Ab (S) [Titer] Negative [facility] Comment on above: Negative <1:80 Borde rline 1:80 Positive >1:80Performed at: [facility] [id number] [place], [place] [id number] Director: Mata Brian PhD, Phone: [phone] Serum or plasma rheumatoid f actor measurement (units/volume)on 08-23-2020 Rheumatoid factor Qn 20.6 [IU]/mL [facility] Comment on above: Performed at: [facility] [address] [id number] Director: Mata Brian PhD, Phone: [phone] Basic Metabolic Panelon 07-29 Calcium [Mass/Vol] 8.6 mg/dL Normal 8.2-10.2 [facility] Comment on above: Performed By: #### C MP, CBC, MG, TROP, BNP #### [address] Chloride [Moles/Vol] 94 mmol/L Low 95-114 [facility] Comment on above: Performed By: #### C MP, CBC, MG, TROP, BNP #### [address] CO2 [Moles/Vol] 21.4 mmol/L Low 22.0-30.0 [facility] Comment on above: Performed By: #### C MP, CBC, MG, TROP, BNP #### [address] Creatinine [Mass/Vol] 4.84 mg/dL High 0.64-1.27 [facility] Comment on above: Performed By: #### C MP, CBC, MG, TROP, BNP #### [address] Creatinine Clr Calc Pharmacy 27.02 [facility] Comment on above: Result Comment: PERF ORMED BY: [place] [address] PATHOLOGIST LIBRARY MEDIA SPECIALIST JORDAN RODRIGUEZ M.D. Performed By: #### C MP, CBC, MG, TROP, BNP #### [address] Estimated GFR ( Camilla 15 [facility] Comment on above: Result Comment: GFR estimated reference range: According to KDOQI guidelines, <60 ml/min/1.73m2 is sufficient to diagnose a patient with chronic kidney disease. Performed By: #### C MP, CBC, MG, TROP, BNP #### [address] Estimated GFR (Non- Am 12 [facility] Comment on above: Performed By: #### C MP, CBC, MG, TROP, BNP #### [address] Glucose [Mass/Vol] 154 mg/dL High 70-100 [facility] Comment on above: Result Comment: [facility] Glucose Reference Range is dependent on time and content of last meal. Glucose of more than 200 mg/dL in a nonstressed, ambulatory subject supports the diagnosis of Diabetes Mellitus. ADA recommended reference range Performed By: #### C MP, CBC, MG, TROP, BNP #### [address] Potassium [Moles/Vol] 4.9 mmol/L Normal 3.5-5.1 [facility] Comment on above: Performed By: #### C MP, CBC, MG, TROP, BNP #### [address] Sodium [Moles/Vol] 129 mmol/L Low 136-146 [facility] Comment on above: Performed By: #### C MP, CBC, MG, TROP, BNP #### [address] Urea nitrogen [Mass/Vol] 54 mg/dL High 9-23 [facility] Comment on above: Performed By: #### C MP, CBC, MG, TROP, BNP #### [address] biopsyon 08-22-2020 Transferrin [Mass/Vol] 104 mg/dL 180-380 [facility] Complete Blood Count Auto Di ffon 08-22-2020 Basophils (Bld) [#/Vol] 0.0 10*3/uL Normal 0.0-0.2 [facility] Comment on above: Result Comment: PERF ORMED BY: [place] [address] PATHOLOGIST [employer] SPECIALIST JORDAN RODRIGUEZ M.D. Performed By: #### C MP, CBC, MG, TROP, BNP #### [address] Basophils/100 WBC (Bld) 0.2 % Normal . [facility] Comment on above: Performed By: #### C MP, CBC, MG, TROP, BNP #### [address] Eosinophils (Bld) [#/Vol] 0.0 10*3/uL Normal 0.0-0.45 [facility] Comment on above: Performed By: #### C MP, CBC, MG, TROP, BNP #### [address] Eosinophils/100 WBC (Bld) 0.1 % Normal . [facility] Comment on above: Performed By: #### C MP, CBC, MG, TROP, BNP #### [address] Erythrocyte distribution width (RBC) [Ratio] 16.4 % High 12.0-14.8 [facility] Comment on above: Performed By: #### C MP, CBC, MG, TROP, BNP #### [address] Hematocrit (Bld) [Volume fraction] 30.4 % Low 38.8-50.0 [facility] Comment on above: Performed By: #### C MP, CBC, MG, TROP, BNP #### [address] Hemoglobin (Bld) [Mass/Vol] 9.9 g/dL Low 13.0-17.0 [facility] Comment on above: Performed By: #### C MP, CBC, MG, TROP, BNP #### [address] Lymphocytes (Bld) [#/Vol] 0.6 10*3/uL Low 1.00-4.8 [facility] Comment on above: Performed By: #### C MP, CBC, MG, TROP, BNP #### [address] Lymphocytes/100 WBC (Bld) 5.6 % Normal . [facility] Comment on above: Performed By: #### C MP, CBC, MG, TROP, BNP #### [address] MCH (RBC) [Entitic mass] 27.1 pg Low 27.5-35.2 [facility] Comment on above: Performed By: #### C MP, CBC, MG, TROP, BNP #### [address] MCV (RBC) [Entitic vol] 83.4 fL Low 83.5-101 [facility] Comment on above: Performed By: #### C MP, CBC, MG, TROP, BNP #### [address] Mean Corpuscular HGB Conc 32.5 g/dL Normal 32.5-35.6 [facility] Comment on above: Performed By: #### C MP, CBC, MG, TROP, BNP #### [address] Monocytes (Bld) [#/Vol] 0.8 10*3/uL Normal 0.0-0.8 [facility] Comment on above: Performed By: #### C MP, CBC, MG, TROP, BNP #### [address] Monocytes/100 WBC (Bld) 7.7 % Normal . [facility] Comment on above: Performed By: #### C MP, CBC, MG, TROP, BNP #### [address] Neutrophils (Bld) [#/Vol] 9.5 10*3/uL High 1.8-7.7 [facility] Comment on above: Performed By: #### C MP, CBC, MG, TROP, BNP #### [address] Neutrophils/100 WBC (Bld) 86.4 % Normal . [facility] Comment on above: Performed By: #### C MP, CBC, MG, TROP, BNP #### [place] [address] [place] Nucleated RBC/100 WBC (Bld) [Ratio] 0.0 % Normal 0-0.5 [facility] Comment on above: Performed By: #### C MP, CBC, MG, TROP, BNP #### [address] Platelet mean volume (Bld) [Entitic vol] 7.8 fL Normal 6.6-10.1 [facility] Comment on above: Performed By: #### C MP, CBC, MG, TROP, BNP #### [address] Platelets (Bld) [#/Vol] 227 10*3/uL Normal 150-450 [facility] Comment on above: Performed By: #### C MP, CBC, MG, TROP, BNP #### [address] RBC (Bld) [#/Vol] 3.64 10*6/uL Low 3.90-5.60 [facility] Comment on above: Performed By: #### C MP, CBC, MG, TROP, BNP #### [address] WBC (Bld) [#/Vol] 11.0 10*3/uL Normal 4.5-11.0 [facility] Comment on above: Performed By: #### C MP, CBC, MG, TROP, BNP #### [address] ECG 12 lead ECGon 08-22-2020 ECG 12 lead ECG [facility] [place] [address] Electrocardiograph Report Signed Patient: Rashard Lyman MR#: [id number] : 1960 Acct:[id number] Age/Sex: 60 / M ADM Date: 08/18/20 Loc: Room: [address] [place] [address] Type: ADM IN Attending Dr: Gordon Ewing [...] MD 08/22/20 1221 Signed By: 08/23/20 1047 [facility] ECG 12 lead ECG [facility] [place] [address] Electrocardiograph Report Signed Patient: Rashard Lyman MR#: [id number] : 1960 Acct:[id number] Age/Sex: 60 / M ADM Date: 08/18/20 Loc: Room: [address] [place] [address] Type: ADM IN Attending Dr: Gordon Ewing [...] MD 08/22/20 0751 Signed By: 08/22/20 1201 [facility] E[facility] echo transthoracicon [facility] echo transthoracic [facility] Main [place] [address] [place] [address] Echocardiogram Signed Patient: Rashard Lyman MR#: [id number] : 1960 Acct:[id number] Age/Sex: 60 / M ADM Date: 08/18/20 Loc: Room: [address] [place] [address] Type: ADM IN Attending Dr: Gordon Ewing MD Ordering Provider: Gautam Bazan MD Date of Service: 08/22/20 [facility] echo transthoracic: Pericarditis Copies to: Gautam Bazan [...] Signed By: 08/22/20 1138 Normal [facility] FE PROon 08-22-2020 % Iron Saturation 11.0 % Low 20-50 [facility] Comment on above: Performed By: #### C MP, CBC, MG, TROP, BNP #### [address] Ferritin [Mass/Vol] 334.8 ng/mL Normal 23.9-336.2 [facility] Comment on above: Result Comment: PERF ORMED BY: [place] [address] PATHOLOGIST [employer] SPECIALIST JORDAN RODRIGUEZ M.D. Performed By: #### C MP, CBC, MG, TROP, BNP #### [facility] [address] [place] [address] Iron [Mass/Vol] 17 ug/dL Low 40-160 [facility] Comment on above: Performed By: #### C MP, CBC, MG, TROP, BNP #### [facility] [address] [place] [address] Total Iron Binding Capacity 146 ug/dL Low 255-450 [facility] Comment on above: Performed By: #### C MP, CBC, MG, TROP, BNP #### [facility] [address] [place] [address] Transferrin [Mass/Vol] 104 mg/dL Low 180-380 [facility] Comment on above: Performed By: #### C MP, CBC, MG, TROP, BNP #### [facility] [address] [place] [address] [place] Ferritin [Mass/volume] in Se rum or Plasmaon 08-22-2020 Ferritin [Mass/Vol] 334.8 ng/mL 23.9-336.2 [facility] Glucose Poct Glucometerson 0 08-22-2020 Commemt1 Glu2: Cleaned Meter Normal [facility] Comment on above: Result Comment: PERF ORMED BY: [facility] [address] [place] [address] PATHOLOGIST [employer] SPECIALIST JORDAN RODRIGUEZ M.D. Performed By: #### C OVID-19 BALJEET JOSUEEG #### [facility] [address] Glucose [Mass/Vol] 81 mg/dL Normal [facility] Comment on above: Result Comment: [place] [facility] Glucose Reference Range is dependent on time and content of last meal. Glucose of more than 200 mg/dL in a nonstressed, ambulatory subject supports the diagnosis of Diabetes Mellitus. Performed By: #### C OVID-19 LIAT SOFIANEG #### [place] [address] [place] Glucose [Mass/Vol] 106 mg/dL Normal [facility] Comment on above: Result Comment: [place] [facility] Glucose Reference Range is dependent on time and content of last meal. Glucose of more than 200 mg/dL in a nonstressed, ambulatory subject supports the diagnosis of Diabetes Mellitus. PERFORMED BY: [facility] [address] [place] [address] PATHOLOGIST [employer] SPECIALIST JORDAN RODRIGUEZ M.D. Performed By: #### C OVID-19 LIAT SOFIANEG #### [facility] [address] [place] [id number] [facility] Glucose [Mass/Vol] 158 mg/dL Normal [facility] Comment on above: Result Comment: [place] [facility] Glucose Reference Range is dependent on time and content of last meal. Glucose of more than 200 mg/dL in a nonstressed, ambulatory subject supports the diagnosis of Diabetes Mellitus. PERFORMED BY: [place] [address] PATHOLOGIST [employer] MEDIA SPECIALIST JORDAN RODRIGUEZ M.D. Performed By: #### C OVID-19 BALJEET JOSUEEG #### [address] Glucose [Mass/Vol] 138 mg/dL Normal [facility] Comment on above: Result Comment: [place] [facility] Glucose Reference Range is dependent on time and content of last meal. Glucose of more than 200 mg/dL in a nonstressed, ambulatory subject supports the diagnosis of Diabetes Mellitus. PERFORMED BY: [place] [address] PATHOLOGIST [employer] MEDIA SPECIALIST JORDAN RODRIGUEZ M.D. Performed By: #### C MP, CBC, MG, TROP, BNP #### [address] Glucose [Mass/Vol] 177 mg/dL Normal [facility] Comment on above: Result Comment: [place] Glucose Reference Range is dependent on time and content of last meal. Glucose of more than 200 mg/dL in a nonstressed, ambulatory subject supports the diagnosis of Diabetes Mellitus. PERFORMED BY: [place] [address] PATHOLOGIST [employer] MEDIA SPECIALIST JORDAN RODRIGUEZ M.D. Performed By: #### C MP, CBC, MG, TROP, BNP #### [address] Iron [Mass/volume] in Serum or Plasmaon 08-22-2020 Iron [Mass/Vol] 17 ug/dL 40-160 [facility] Iron binding capacity [Mass/ volume] in Serum or Plasmaon 08-22-2020 Iron binding capacity [Mass/Vol] 146 ug/dL 255-450 [facility] Iron saturation [Mass Fracti on] in Serum or Plasmaon 08-22-2020 Iron saturation [Mass fraction] 11.0 % 20-50 [facility] Basic Metabolic Panelon 07-29 Calcium [Mass/Vol] 8.8 mg/dL Normal 8.2-10.2 [facility] Comment on above: Performed By: #### C MP, CBC, MG, TROP, BNP #### [address] Chloride [Moles/Vol] 95 mmol/L Normal 95-114 [facility] Comment on above: Performed By: #### C MP, CBC, MG, TROP, BNP #### [address] CO2 [Moles/Vol] 24.4 mmol/L Normal 22.0-30.0 [facility] Comment on above: Performed By: #### C MP, CBC, MG, TROP, BNP #### [address] Creatinine [Mass/Vol] 4.31 mg/dL High 0.64-1.27 [facility] Comment on above: Performed By: #### C MP, CBC, MG, TROP, BNP #### [address] Creatinine Clr Calc Pharmacy 30.19 [facility] Comment on above: Result Comment: PERF ORMED BY: [place] [address] PATHOLOGIST [employer] MEDIA SPECIALIST JORDAN RODRIGUEZ M.D. Performed By: #### C MP, CBC, MG, TROP, BNP #### [address] Estimated GFR ( Camilla 17 [facility] Comment on above: Result Comment: GFR estimated reference range: According to KDOQI guidelines, <60 ml/min/1.73m2 is sufficient to diagnose a patient with chronic kidney disease. Performed By: #### C MP, CBC, MG, TROP, BNP #### [address] Estimated GFR (Non- Am 14 [facility] Comment on above: Performed By: #### C MP, CBC, MG, TROP, BNP #### [address] Glucose [Mass/Vol] 206 mg/dL High 70-100 [facility] Comment on above: Result Comment: [facility] Glucose Reference Range is dependent on time and content of last meal. Glucose of more than 200 mg/dL in a nonstressed, ambulatory subject supports the diagnosis of Diabetes Mellitus. ADA recommended reference range Performed By: #### C MP, CBC, MG, TROP, BNP #### [address] Potassium [Moles/Vol] 4.3 mmol/L Normal 3.5-5.1 [facility] Comment on above: Performed By: #### C MP, CBC, MG, TROP, BNP #### [address] Sodium [Moles/Vol] 131 mmol/L Low 136-146 [facility] Comment on above: Performed By: #### C MP, CBC, MG, TROP, BNP #### [address] Urea nitrogen [Mass/Vol] 44 mg/dL High 9-23 [facility] Comment on above: Performed By: #### C MP, CBC, MG, TROP, BNP #### [address] Creatine Kinaseon 08-21-2020 CK [Catalytic activity/Vol] 45 U/L Normal 22-269 [facility] Comment on above: Performed By: #### C MP, CBC, MG, TROP, BNP #### [address] Creatine kinase [Enzymatic a ctivity/volume] in Serum or Plasmaon 08-21-2020 CK [Catalytic activity/Vol] 45 U/L 22 [facility] Creatinine Kinase MBon 08-21 CK.MB [Mass/Vol] 2.3 ng/mL Normal 0.6-6.3 [facility] Comment on above: Performed By: #### C MP, CBC, MG, TROP, BNP #### [address] CKMB Relative Index 5.1 % High 0.00-2.50 [facility] Comment on above: Performed By: #### C MP, CBC, MG, TROP, BNP #### [place] [id number] [facility] ECG 12 lead ECGon 08-21-2020 ECG 12 lead ECG [facility] [place] [address] Electrocardiograph Report Signed Patient: Rashard Lyman MR#: [id number] 1397 : 1960 Acct:[id number] Age/Sex: 60 / M ADM Date: 08/18/20 Loc: 4P Room: [address] [place] [address] Type: ADM IN Attending Dr: Eugene Morel [...] Ochoa DO 08/21/20 0956 Signed By: 08/21/202008 Normal [facility] ECG 12 lead ECG [facility] [place] [address] Electrocardiograph Report Signed Patient: aRshard Lyman MR#: [id number] : 1960 Acct:[id number] Age/Sex: 60 / M ADM Date: 08/18/20 Loc: 4P Room: [address] [place] [address] Type: ADM IN Attending Dr: Eugene Morel [...] By: NURIA Dictated By: Nir Ochoa DO 08/21/20827 Signed By: 08/21/202029 Normal [facility] ECG 12 lead ECG [facility] [place] [address] Electrocardiograph Report Signed Patient: Rashard Lyman MR#: [id number] 1397 : 1960 Acct:[id number] Age/Sex: 60 / M ADM Date: 08/18/20 Loc: Room: [address] [place] [address] Type: ADM IN Attending Dr: Eugene Morel [...] 08/21/20615 Signed By: 08/21/202053 Normal [facility] Glucose Poct Glucometerson 0 08-21-2020 Glucose [Mass/Vol] 210 mg/dL Normal [facility] Comment on above: Result Comment: [place] Glucose Reference Range is dependent on time and content of last meal. Glucose of more than 200 mg/dL in a nonstressed, ambulatory subject supports the diagnosis of Diabetes Mellitus. PERFORMED BY: [place] [address] PATHOLOGIST [employer]ARY MEDIA SPECIALIST JORDAN RODRIGUEZ M.D. Performed By: #### C MP, CBC, MG, TROP, BNP #### [address] Commemt1 Glu2: Cleaned Meter [facility] Comment on above: Result Comment: PERF ORMED BY: [place] [address] PATHOLOGIST LIB[employer]ARY MEDIA SPECIALIST JORDAN RODRIGUEZ M.D. Performed By: #### C MP, CBC, MG, TROP, BNP #### [address] Glucose [Mass/Vol] 136 mg/dL Normal [facility] Comment on above: Result Comment: [place] Glucose Reference Range is dependent on time and content of last meal. Glucose of more than 200 mg/dL in a nonstressed, ambulatory subject supports the diagnosis of Diabetes Mellitus. Performed By: #### C MP, CBC, MG, TROP, BNP #### [address] Commemt1 Glu2: Cleaned Meter [facility] Comment on above: Result Comment: PERF ORMED BY: [place] [address] PATHOLOGIST [employer]ARY MEDIA SPECIALIST JORDAN RODRIGUEZ M.D. Performed By: #### C MP, CBC, MG, TROP, BNP #### [address] [place] [address] [place] Glucose [Mass/Vol] 198 mg/dL Normal [facility] Comment on above: Result Comment: [place] [facility] Glucose Reference Range is dependent on time and content of last meal. Glucose of more than 200 mg/dL in a nonstressed, ambulatory subject supports the diagnosis of Diabetes Mellitus. Performed By: #### C MP, CBC, MG, TROP, BNP #### [address] Commemt1 Glu2: Cleaned Meter Normal [facility] Comment on above: Result Comment: PERF ORMED BY: [place] [address] PATHOLOGIST LIBRARY MEDIA SPECIALIST JORDAN RODRIGUEZ M.D. Performed By: #### C MP, CBC, MG, TROP, BNP #### [address] Glucose [Mass/Vol] 221 mg/dL [facility] Comment on above: Result Comment: [place] om Glucose Reference Range is dependent on time and content of last meal. Glucose of more than 200 mg/dL in a nonstressed, ambulatory subject supports the diagnosis of Diabetes Mellitus. Performed By: #### C MP, CBC, MG, TROP, BNP #### [address] Glucose [Mass/Vol] 210 mg/dL [facility] Comment on above: Result Comment: [place] [facility] Glucose Reference Range is dependent on time and content of last meal. Glucose of more than 200 mg/dL in a nonstressed, ambulatory subject supports the diagnosis of Diabetes Mellitus. PERFORMED BY: [place] [address] PATHOLOGIST LIBRARY MEDIA SPECIALIST JORDAN RODRIGUEZ M.D. Performed By: #### C MP, CBC, MG, TROP, BNP #### [address] No Panel Informationon 08-21 Dohle Bodies Slight [facility] Scan and CBCon 08-21-2020 Anisocytosis Ql (Bld) Slight Normal [facility] Comment on above: Performed By: #### C MP, CBC, MG, TROP, BNP #### [address] Basophils (Bld) [#/Vol] 0.0 10*3/uL Normal 0.0-0.2 [facility] Comment on above: Performed By: #### C MP, CBC, MG, TROP, BNP #### [address] Basophils/100 WBC (Bld) 0.3 % Normal . [facility] Comment on above: Performed By: #### C MP, CBC, MG, TROP, BNP #### [address] Dohle Bodies Slight Normal [facility] Comment on above: Performed By: #### C MP, CBC, MG, TROP, BNP #### [address] Eosinophils (Bld) [#/Vol] 0.5 10*3/uL High 0.0-0.45 [facility] Comment on above: Performed By: #### C MP, CBC, MG, TROP, BNP #### [address] Eosinophils/100 WBC (Bld) 3.2 % Normal . [facility] Comment on above: Performed By: #### C MP, CBC, MG, TROP, BNP #### [address] Erythrocyte distribution width (RBC) [Ratio] 16.6 % High 12.0-14.8 [facility] Comment on above: Performed By: #### C MP, CBC, MG, TROP, BNP #### [address] Hematocrit (Bld) [Volume fraction] 31.8 % Low 38.8-50.0 [facility] Comment on above: Performed By: #### C MP, CBC, MG, TROP, BNP #### [address] Hemoglobin (Bld) [Mass/Vol] 10.3 g/dL Low 13.0-17.0 [facility] Comment on above: Performed By: #### C MP, CBC, MG, TROP, BNP #### [address] Lymphocytes (Bld) [#/Vol] 1.2 10*3/uL Normal 1.00-4.8 [facility] Comment on above: Performed By: #### C MP, CBC, MG, TROP, BNP #### [address] Lymphocytes/100 WBC (Bld) 8.1 % Normal . [facility] Comment on above: Performed By: #### C MP, CBC, MG, TROP, BNP #### [address] MCH (RBC) [Entitic mass] 26.8 pg Low 27.5-35.2 [facility] Comment on above: Performed By: #### C MP, CBC, MG, TROP, BNP #### [address] MCV (RBC) [Entitic vol] 83.1 fL Low 83.5-101 [facility] Comment on above: Performed By: #### C MP, CBC, MG, TROP, BNP #### [address] Mean Corpuscular HGB Conc 32.3 g/dL Low 32.5-35.6 [facility] Comment on above: Performed By: #### C MP, CBC, MG, TROP, BNP #### [address] Monocytes (Bld) [#/Vol] 1.7 10*3/uL High 0.0-0.8 [facility] Comment on above: Performed By: #### C MP, CBC, MG, TROP, BNP #### [address] Monocytes/100 WBC (Bld) 11.4 % Normal . [facility] Comment on above: Performed By: #### C MP, CBC, MG, TROP, BNP #### [address] Neutrophils (Bld) [#/Vol] 11.2 10*3/uL High 1.8-7.7 [facility] Comment on above: Performed By: #### C MP, CBC, MG, TROP, BNP #### [address] Neutrophils/100 WBC (Bld) 77.0 % Normal . [facility] Comment on above: Performed By: #### C MP, CBC, MG, TROP, BNP #### [address] Nucleated RBC/100 WBC (Bld) [Ratio] 0.1 % Normal 0-0.5 [facility] Comment on above: Performed By: #### C MP, CBC, MG, TROP, BNP #### [address] Platelet Estimate Normal Normal Normal [facility] Comment on above: Performed By: #### C MP, CBC, MG, TROP, BNP #### [address] Platelet mean volume (Bld) [Entitic vol] 7.8 fL Normal 6.6-10.1 [facility] Comment on above: Performed By: #### C MP, CBC, MG, TROP, BNP #### [address] Platelet Morphology Normal Normal Normal [facility] Comment on above: Result Comment: PERF ORMED BY: [place] [address] PATHOLOGIST LIB[employer]ARY MEDIA SPECIALIST JORDAN RODRIGUEZ M.D. Performed By: #### C MP, CBC, MG, TROP, BNP #### [address] Platelets (Bld) [#/Vol] 265 10*3/uL Normal 150-450 [facility] Comment on above: Performed By: #### C MP, CBC, MG, TROP, BNP #### [facility] [address] RBC (Bld) [#/Vol] 3.83 10*6/uL Low 3.90-5.60 [facility] Comment on above: Performed By: #### C MP, CBC, MG, TROP, BNP #### [address] WBC (Bld) [#/Vol] 14.6 10*3/uL High 4.5-11.0 [facility] Comment on above: Performed By: #### C MP, CBC, MG, TROP, BNP #### [address] Serum or plasma cardiac trop onin I measurement (mass/volume)on 08-21-2020 Troponin I.cardiac [Mass/Vol] ng/mL 0-0.02 [facility] Comment on above: [place] Cut off value > or equal to 0.03 ng/mL in conjunction with clinical conditions of myocardial infarction.(www.escardio.org/guidelines) Serum or plasma creatine kin ase MB (CKMB)/total creatine kinase (CK) ratio by calculaon 08-21-2020 CK.MB Calc [Catalytic fraction] 5.1 % 0.00-2.50 [facility] Serum or plasma creatine kin ase MB measurement (mass/volume)on 08-21-2020 CK.MB [Mass/Vol] 2.3 ng/mL 0.6-6.3 [facility] Troponin I(TnI)on 08-21-2020 Troponin I.cardiac [Mass/Vol] ng/mL Normal 0-0.02 [facility] Comment on above: Result Comment: [place] Cut off value > or equal to 0.03 ng/mL in conjunction with clinical conditions of myocardial infarction. (www.escardio.org/guidelines) PERFORMED BY: [place] [address] PATHOLOGIST [employer]ARY MEDIA SPECIALIST JORDAN RODRIGUEZ M.D. Performed By: #### C MP, CBC, MG, TROP, BNP #### [address] Troponin I.cardiac [Mass/Vol] ng/mL Normal 0-0.02 [facility] Comment on above: Result Comment: [place] Cut off value > or equal to 0.03 ng/mL in conjunction with clinical conditions of myocardial infarction. (www.escardio.org/guidelines) PERFORMED BY: [place] [address] PATHOLOGIST [employer]RARY MEDIA SPECIALIST JORDAN RODRIGUEZ M.D. Performed By: #### C MP, CBC, MG, TROP, BNP #### [address] Basic Metabolic Panelon 07-29 Calcium [Mass/Vol] 8.4 mg/dL Normal 8.2-10.2 [facility] Comment on above: Performed By: #### C MP, CBC, MG, TROP, BNP #### [address] Chloride [Moles/Vol] 99 mmol/L Normal 95-114 [facility] Comment on above: Performed By: #### C MP, CBC, MG, TROP, BNP #### [address] CO2 [Moles/Vol] 25.0 mmol/L Normal 22.0-30.0 [facility] Comment on above: Performed By: #### C MP, CBC, MG, TROP, BNP #### [address] Creatinine [Mass/Vol] 3.26 mg/dL High 0.64-1.27 [facility] Comment on above: Performed By: #### C MP, CBC, MG, TROP, BNP #### [address] Creatinine Clr Calc Pharmacy 39.92 Normal [facility] Comment on above: Result Comment: PERF ORMED BY: [place] [address] PATHOLOGIST LIBRARY MEDIA SPECIALIST JORDAN RODRIGUEZ M.D. Performed By: #### C MP, CBC, MG, TROP, BNP #### [facility] [address] Estimated GFR ( Camilla 24 [facility] Comment on above: Result Comment: GFR estimated reference range: According to KDOQI guidelines, <60 ml/min/1.73m2 is sufficient to diagnose a patient with chronic kidney disease. Performed By: #### C MP, CBC, MG, TROP, BNP #### [address] Estimated GFR (Non- Am 19 [facility] Comment on above: Performed By: #### C MP, CBC, MG, TROP, BNP #### [address] Glucose [Mass/Vol] 205 mg/dL High 70-100 [facility] Comment on above: Result Comment: [place] om Glucose Reference Range is dependent on time and content of last meal. Glucose of more than 200 mg/dL in a nonstressed, ambulatory subject supports the diagnosis of Diabetes Mellitus. ADA recommended reference range Performed By: #### C MP, CBC, MG, TROP, BNP #### [address] Potassium [Moles/Vol] 3.5 mmol/L Normal 3.5-5.1 [facility] Comment on above: Performed By: #### C MP, CBC, MG, TROP, BNP #### [address] Sodium [Moles/Vol] 131 mmol/L Low 136-146 [facility] Comment on above: Performed By: #### C MP, CBC, MG, TROP, BNP #### [address] Urea nitrogen [Mass/Vol] 35 mg/dL High 9-23 [facility] Comment on above: Performed By: #### C MP, CBC, MG, TROP, BNP #### [address] C-Reactive Proteinon 04-24-2 021 C-Reactive Protein 19.4 mg/dL High 0.0-1.0 [facility] Comment on above: Result Comment: PERF ORMED BY: [place] [address] PATHOLOGIST LIBRARY MEDIA SPECIALIST JORDAN RODRIGUEZ M.D. Performed By: #### C MP, CBC, MG, TROP, BNP #### [facility] [address] [place] [address] Erythrocyte Sedimentation Ra donato 08-20-2020 ESR (Bld) [Velocity] 108 mm/h High 0-19 [facility] Comment on above: Result Comment: PERF ORMED BY: [place] [address] PATHOLOGIST LIBRARY MEDIA SPECIALIST JORDAN RODRIGUEZ M.D. Performed By: #### C MP, CBC, MG, TROP, BNP #### [address] Erythrocyte sedimentation ra te by Photometric methodon 08-20-2020 ESR Photometric method (Bld) [Velocity] 108 mm/hr 0- [facility] Glucose Poct Glucometerson 0 08-20-2020 Glucose [Mass/Vol] 195 mg/dL Normal [facility] Comment on above: Result Comment: [place] Glucose Reference Range is dependent on time and content of last meal. Glucose of more than 200 mg/dL in a nonstressed, ambulatory subject supports the diagnosis of Diabetes Mellitus. PERFORMED BY: [place] [address] PATHOLOGIST LIBRARY MEDIA SPECIALIST JORDAN RODRIGUEZ M.D. Performed By: #### C MP, CBC, MG, TROP, BNP #### [place] [address] [place] Glucose [Mass/Vol] 171 mg/dL Normal [facility] Comment on above: Result Comment: [place] Glucose Reference Range is dependent on time and content of last meal. Glucose of more than 200 mg/dL in a nonstressed, ambulatory subject supports the diagnosis of Diabetes Mellitus. PERFORMED BY: [address] [address] PATHOLOGIST LIBRARY MEDIA SPECIALIST JORDAN RODRIGUEZ M.D. Performed By: #### C MP, CBC, MG, TROP, BNP #### [address] Glucose [Mass/Vol] 246 mg/dL Normal [facility] Comment on above: Result Comment: [place] om Glucose Reference Range is dependent on time and content of last meal. Glucose of more than 200 mg/dL in a nonstressed, ambulatory subject supports the diagnosis of Diabetes Mellitus. PERFORMED BY: [place] [address] PATHOLOGIST LIBRARY MEDIA SPECIALIST JORDAN RODRIGUEZ M.D. Performed By: #### C MP, CBC, MG, TROP, BNP #### [address] Glucose [Mass/Vol] 274 mg/dL Normal [facility] Comment on above: Result Comment: [place] om Glucose Reference Range is dependent on time and content of last meal. Glucose of more than 200 mg/dL in a nonstressed, ambulatory subject supports the diagnosis of Diabetes Mellitus. PERFORMED BY: [place] [address] PATHOLOGIST LIBRARY MEDIA SPECIALIST JORDAN RODRIGUEZ M.D. Performed By: #### C MP, CBC, MG, TROP, BNP #### [address] Glucose [Mass/Vol] 221 mg/dL Normal [facility] Comment on above: Result Comment: [place] om Glucose Reference Range is dependent on time and content of last meal. Glucose of more than 200 mg/dL in a nonstressed, ambulatory subject supports the diagnosis of Diabetes Mellitus. PERFORMED BY: [place] [address] PATHOLOGIST LIBRARY MEDIA SPECIALIST JORDAN RODRIGUEZ M.D. Performed By: #### C MP, CBC, MG, TROP, BNP #### [address] MR thoracic spine wo conon 0 08-20-2020 MR thoracic spine wo con [facility] Main [place] [address] [place] [address] MRI Report Signed Patient: Rashard Lyman MR#: [id number] : 1960 Acct:[id number] Age/Sex: 60 / M ADM Date: 08/18/20 Loc: Room: [address] [place] [address] Type: ADM IN Attending Dr: Eugene Morel [...] Chitra Brantley M.D.08/20/2020 6:27 PM Dictation Location: [place] [address] Transcribed By: [facility] 08/20/201826 Dictated By: Chitra Brantley MD 08/20/201816 Signed By: 08/20/201826 [facility] Scan and CBCon 08-20-2020 Anisocytosis Ql (Bld) Slight [facility] Comment on above: Performed By: #### C MP, CBC, MG, TROP, BNP #### [address] Basophils (Bld) [#/Vol] 0.0 10*3/uL Normal 0.0-0.2 [facility] Comment on above: Performed By: #### C MP, CBC, MG, TROP, BNP #### [address] Basophils/100 WBC (Bld) 0.3 % Normal . [facility] Comment on above: Performed By: #### C MP, CBC, MG, TROP, BNP #### [address] Dohle Bodies Slight Normal [facility] Comment on above: Performed By: #### C MP, CBC, MG, TROP, BNP #### [address] Eosinophils (Bld) [#/Vol] 0.5 10*3/uL High 0.0-0.45 [facility] Comment on above: Performed By: #### C MP, CBC, MG, TROP, BNP #### [address] Eosinophils/100 WBC (Bld) 3.8 % Normal . [facility] Comment on above: Performed By: #### C MP, CBC, MG, TROP, BNP #### [address] Erythrocyte distribution width (RBC) [Ratio] 16.2 % High 12.0-14.8 [facility] Comment on above: Performed By: #### C MP, CBC, MG, TROP, BNP #### [address] Hematocrit (Bld) [Volume fraction] 32.1 % Low 38.8-50.0 [facility] Comment on above: Performed By: #### C MP, CBC, MG, TROP, BNP #### [address] Hemoglobin (Bld) [Mass/Vol] 10.4 g/dL Low 13.0-17.0 [facility] Comment on above: Performed By: #### C MP, CBC, MG, TROP, BNP #### [address] Lymphocytes (Bld) [#/Vol] 1.5 10*3/uL Normal 1.00-4.8 [facility] Comment on above: Performed By: #### C MP, CBC, MG, TROP, BNP #### [address] Lymphocytes/100 WBC (Bld) 11.0 % Normal . [facility] Comment on above: Performed By: #### C MP, CBC, MG, TROP, BNP #### [address] MCH (RBC) [Entitic mass] 26.7 pg Low 27.5-35.2 [facility] Comment on above: Performed By: #### C MP, CBC, MG, TROP, BNP #### [address] MCV (RBC) [Entitic vol] 82.2 fL Low 83.5-101 [facility] Comment on above: Performed By: #### C MP, CBC, MG, TROP, BNP #### [address] Mean Corpuscular HGB Conc 32.5 g/dL Normal 32.5-35.6 [facility] Comment on above: Performed By: #### C MP, CBC, MG, TROP, BNP #### [address] Monocytes (Bld) [#/Vol] 1.7 10*3/uL High 0.0-0.8 [facility] Comment on above: Performed By: #### C MP, CBC, MG, TROP, BNP #### [address] Monocytes/100 WBC (Bld) 12.5 % Normal . [facility] Comment on above: Performed By: #### C MP, CBC, MG, TROP, BNP #### [address] Neutrophils (Bld) [#/Vol] 9.7 10*3/uL High 1.8-7.7 [facility] Comment on above: Performed By: #### C MP, CBC, MG, TROP, BNP #### [address] Neutrophils/100 WBC (Bld) 72.4 % Normal . [facility] Comment on above: Performed By: #### C MP, CBC, MG, TROP, BNP #### [address] Nucleated RBC/100 WBC (Bld) [Ratio] 0.0 % Normal 0-0.5 [facility] Comment on above: Performed By: #### C MP, CBC, MG, TROP, BNP #### [address] Platelet Estimate Normal Normal Normal [facility] Comment on above: Performed By: #### C MP, CBC, MG, TROP, BNP #### [address] Platelet mean volume (Bld) [Entitic vol] 7.7 fL Normal 6.6-10.1 [facility] Comment on above: Performed By: #### C MP, CBC, MG, TROP, BNP #### [address] Platelet Morphology Normal Normal Normal [facility] Comment on above: Performed By: #### C MP, CBC, MG, TROP, BNP #### [place] [address] [place] Platelets (Bld) [#/Vol] 253 10*3/uL Normal 150-450 [facility] Comment on above: Performed By: #### C MP, CBC, MG, TROP, BNP #### [place] [address] [place] RBC (Bld) [#/Vol] 3.90 10*6/uL Normal 3.90-5.60 [facility] Comment on above: Performed By: #### C MP, CBC, MG, TROP, BNP #### [address] WBC (Bld) [#/Vol] 13.4 10*3/uL High 4.5-11.0 [facility] Comment on above: Performed By: #### C MP, CBC, MG, TROP, BNP #### [address] Serum or plasma C reactive p rotein measurement (mass/volume)on 08-20-2020 CRP [Mass/Vol] 19.4 mg/dL 0.0-1.0 [facility] A1C with Estimated Average G luon 08-19-2020 Glucose [Mass/Vol] 298 mg/dL Normal [facility] Comment on above: Result Comment: PERF ORMED BY: [place] [address] PATHOLOGIST LIBRARY MEDIA SPECIALIST JORDAN RODRIGUEZ M.D. Performed By: #### C MP, CBC, MG, TROP, BNP #### [address] HbA1c (Bld) [Mass fraction] 12.0 % High 4.3-5.6 [facility] Comment on above: Result Comment: Incr eased risk for diabetes: 5.7 - 6.4 diabetes: >6.4 glycemic control for adults with diabetes: <7.0 Performed By: #### C MP, CBC, MG, TROP, BNP #### [address] ABO and Rh group post transf usion reaction Nom (Bld)on 08-19-2020 Microscopic observation Gram stain Nom (Unsp spec) [facility] Aerobic Cultureon 08-19-2020 Aerobic Culture Light Normal Respira tory Edith 2 Days Gram Stain Result 2+ White Blood Cells 1+ Epithelial Cells 1+ Gram Positive Cocci PERFORMED BY: [place] [address] PATHOLOGIST LIBRARY MEDIA SPECIALIST JORDAN RODRIGUEZ M.D. [facility] Comment on above: Performed By: #### C MP, CBC, MG, TROP, BNP #### [address] Basic Metabolic Panelon -2 Calcium [Mass/Vol] 8.4 mg/dL Normal 8.2-10.2 [facility] Comment on above: Performed By: #### C MP, CBC, MG, TROP, BNP #### [address] Chloride [Moles/Vol] 98 mmol/L Normal 95-114 [facility] Comment on above: Performed By: #### C MP, CBC, MG, TROP, BNP #### [address] CO2 [Moles/Vol] 25.3 mmol/L Normal 22.0-30.0 [facility] Comment on above: Performed By: #### C MP, CBC, MG, TROP, BNP #### [address] Creatinine [Mass/Vol] 3.04 mg/dL High 0.64-1.27 [facility] Comment on above: Performed By: #### C MP, CBC, MG, TROP, BNP #### [address] Creatinine Clr Calc Pharmacy 42.91 [facility] Comment on above: Performed By: #### C MP, CBC, MG, TROP, BNP #### [address] Estimated GFR ( Camilla 26 [facility] Comment on above: Result Comment: GFR estimated reference range: According to KDOQI guidelines, <60 ml/min/1.73m2 is sufficient to diagnose a patient with chronic kidney disease. Performed By: #### C MP, CBC, MG, TROP, BNP #### [address] Estimated GFR (Non- Am 21 Normal [facility] Comment on above: Performed By: #### C MP, CBC, MG, TROP, BNP #### [facility] [address] Glucose [Mass/Vol] 328 mg/dL High 70-100 [facility] Comment on above: Result Comment: [place] Glucose Reference Range is dependent on time and content of last meal. Glucose of more than 200 mg/dL in a nonstressed, ambulatory subject supports the diagnosis of Diabetes Mellitus. ADA recommended reference range Performed By: #### C MP, CBC, MG, TROP, BNP #### [facility] [address] Potassium [Moles/Vol] 3.4 mmol/L Low 3.5-5.1 [facility] Comment on above: Performed By: #### C MP, CBC, MG, TROP, BNP #### [facility] [address] Sodium [Moles/Vol] 131 mmol/L Low 136-146 [facility] Comment on above: Performed By: #### C MP, CBC, MG, TROP, BNP #### [facility] [address] Urea nitrogen [Mass/Vol] 30 mg/dL High -23 [facility] Comment on above: Performed By: #### C MP, CBC, MG, TROP, BNP #### [facility] [address] abdomen pelvis wo [facility] 0 08-19-2020 CT abdomen pelvis [place] [address] CT Scan Report Signed Patient: Rashard Lyman MR#: [id number] : 1960 Acct:[id number] Age/Sex: 60 / M ADM Date: 08/18/20 Loc: Room: [address] [place] [address] Type: ADM IN Attending Dr: Eugene Morel DO Ordering Provider: Eugene Morel DO Date of Service: 08/19/20 CT/CT abdomen pelvis wo con: left sided pain ([id number]) CT/CT chest wo con: left lung base abnormality Copies to: Eugene Morel, CT chest wo con, CT abdomen pelvis [...] Hector Mckinney M.D.08/19/2020 8:01 PM Dictation Location: [place] [address] Transcribed By: [facility] 08/19/202000 Dictated By: Hector Mckinney II, MD 08/19/201947 Signed By: 08/19/202000 Normal [facility] Glucose Poct Glucometerson 0 08-19-2020 Glucose [Mass/Vol] 266 mg/dL Normal [facility] Comment on above: Result Comment: [place] Glucose Reference Range is dependent on time and content of last meal. Glucose of more than 200 mg/dL in a nonstressed, ambulatory subject supports the diagnosis of Diabetes Mellitus. PERFORMED BY: [place] [address] PATHOLOGIST LIBRARY MEDIA SPECIALIST JORDAN RODRIGUEZ M.D. Performed By: #### C MP, CBC, MG, TROP, BNP #### [facility] [address] [place] [address] Glucose [Mass/Vol] 349 mg/dL Normal [facility] Comment on above: Result Comment: [place] Glucose Reference Range is dependent on time and content of last meal. Glucose of more than 200 mg/dL in a nonstressed, ambulatory subject supports the diagnosis of Diabetes Mellitus. PERFORMED BY: [place] [address] PATHOLOGIST LIBRARY MEDIA SPECIALIST JORDAN RODRIGUEZ M.D. Performed By: #### C MP, CBC, MG, TROP, BNP #### [facility] [address] [place] [address] [place] Glucose [Mass/Vol] 258 mg/dL Normal [facility] Comment on above: Result Comment: [place] Glucose Reference Range is dependent on time and content of last meal. Glucose of more than 200 mg/dL in a nonstressed, ambulatory subject supports the diagnosis of Diabetes Mellitus. PERFORMED BY: [place] [address] PATHOLOGIST LIBRARY MEDIA SPECIALIST JORDAN RODRIGUEZ M.D. Performed By: #### C MP, CBC, MG, TROP, BNP #### [address] Glucose [Mass/Vol] 292 mg/dL Normal [facility] Comment on above: Result Comment: [place] om Glucose Reference Range is dependent on time and content of last meal. Glucose of more than 200 mg/dL in a nonstressed, ambulatory subject supports the diagnosis of Diabetes Mellitus. PERFORMED BY: [place] [address] PATHOLOGIST LIBRARY MEDIA SPECIALIST JORDAN RODRIGUEZ M.D. Performed By: #### C MP, CBC, MG, TROP, BNP #### [address] Commemt1 Glu2: Cleaned Meter Normal [facility] Comment on above: Result Comment: PERF ORMED BY: [place] [address] PATHOLOGIST LIBRARY MEDIA SPECIALIST JORDAN RODRIGUEZ M.D. Performed By: #### C MP, CBC, MG, TROP, BNP #### [address] Glucose [Mass/Vol] 350 mg/dL Normal [facility] Comment on above: Result Comment: [facility] Glucose Reference Range is dependent on time and content of last meal. Glucose of more than 200 mg/dL in a nonstressed, ambulatory subject supports the diagnosis of Diabetes Mellitus. Performed By: #### C MP, CBC, MG, TROP, BNP #### [address] Glucose mean value [Mass/vol ume] in Blood Estimated from glycated hemoglobinon 08-19-2020 Average glucose Estimated from glycated hemoglobin (Bld) [Mass/Vol] 298 mg/dL [facility] Gram Stainon 08-19-2020 Microscopic observation Gram stain Nom (Unsp spec) Gram Stain Result 2+ White Blood Cells 1+ Epithelial Cells 1+ Gram Positive Cocci PERFORMED BY: [place] [address] PATHOLOGIST LIBRARY MEDIA SPECIALIST JORDAN RODRIGUEZ M.D. Normal [facility] Comment on above: Performed By: #### C MP, CBC, MG, TROP, BNP #### [address] Hemoglobin A1c percentageon 08-19-2020 HbA1c (Bld) [Mass fraction] 12.0 % 4.3-5.6 [facility] Comment on above: Increased risk for d iabetes: 5.7 - 6.4diabetes: >6.4glycemic control for adults with diabetes: <7.0 Laboratory - Chemistry and C hemistry - challengeon 08-19-2020 Magnesium [Mass/Vol] 2.0 mg/dL 1.6-2.6 [facility] Magnesiumon 08-19-2020 Magnesium [Mass/Vol] 2.0 mg/dL Normal 1.6-2.6 [facility] Comment on above: Performed By: #### C MP, CBC, MG, TROP, BNP #### [address] No Panel Informationon 08-19 25-Hydroxy Vitamin D Total 24.6 ng/mL 30-100 [facility] Comment on above: VITAMIN D STATUS 25( [place])VITAMIN D RANGE (ng/mL) Deficient <20 Insufficient 20 to <30Sufficient 30 to 100Reference: Aki MF,Oriana NC, Elli JONAS, et al. Evaluation,treatment, and prevention of vitamin D deficiency; an Endocrine Society clinical practice guideline. JCEM. 2010; 96(7):1911-30. Scan and CBCon 08-19-2020 Anisocytosis Ql (Bld) Slight Normal [facility] Comment on above: Performed By: #### C MP, CBC, MG, TROP, BNP #### [address] Basophils (Bld) [#/Vol] 0.1 10*3/uL Normal 0.0-0.2 [facility] Comment on above: Performed By: #### C MP, CBC, MG, TROP, BNP #### [address] Basophils/100 WBC (Bld) 0.8 % Normal . [facility] Comment on above: Performed By: #### C MP, CBC, MG, TROP, BNP #### [address] Eosinophils (Bld) [#/Vol] 0.4 10*3/uL Normal 0.0-0.45 [facility] Comment on above: Performed By: #### C MP, CBC, MG, TROP, BNP #### [address] Eosinophils/100 WBC (Bld) 2.8 % Normal . [facility] Comment on above: Performed By: #### C MP, CBC, MG, TROP, BNP #### [address] Erythrocyte distribution width (RBC) [Ratio] 16.0 % High 12.0-14.8 [facility] Comment on above: Performed By: #### C MP, CBC, MG, TROP, BNP #### [address] Hematocrit (Bld) [Volume fraction] 32.4 % Low 38.8-50.0 [facility] Comment on above: Performed By: #### C MP, CBC, MG, TROP, BNP #### [address] Hemoglobin (Bld) [Mass/Vol] 10.5 g/dL Low 13.0-17.0 [facility] Comment on above: Performed By: #### C MP, CBC, MG, TROP, BNP #### [place] [address] [place] Lymphocytes (Bld) [#/Vol] 1.6 10*3/uL Normal 1.00-4.8 [facility] Comment on above: Performed By: #### C MP, CBC, MG, TROP, BNP #### [address] Lymphocytes/100 WBC (Bld) 11.4 % Normal . [facility] Comment on above: Performed By: #### C MP, CBC, MG, TROP, BNP #### [address] MCH (RBC) [Entitic mass] 26.6 pg Low 27.5-35.2 [facility] Comment on above: Performed By: #### C MP, CBC, MG, TROP, BNP #### [address] MCV (RBC) [Entitic vol] 82.4 fL Low 83.5-101 [facility] Comment on above: Performed By: #### C MP, CBC, MG, TROP, BNP #### [address] Mean Corpuscular HGB Conc 32.3 g/dL Low 32.5-35.6 [facility] Comment on above: Performed By: #### C MP, CBC, MG, TROP, BNP #### [address] Monocytes (Bld) [#/Vol] 1.6 10*3/uL High 0.0-0.8 [facility] Comment on above: Performed By: #### C MP, CBC, MG, TROP, BNP #### [address] Monocytes/100 WBC (Bld) 11.7 % Normal . [facility] Comment on above: Performed By: #### C MP, CBC, MG, TROP, BNP #### [address] Neutrophils (Bld) [#/Vol] 10.2 10*3/uL High 1.8-7.7 [facility] Comment on above: Performed By: #### C MP, CBC, MG, TROP, BNP #### [address] Neutrophils/100 WBC (Bld) 73.3 % Normal . [facility] Comment on above: Performed By: #### C MP, CBC, MG, TROP, BNP #### [address] Nucleated RBC/100 WBC (Bld) [Ratio] 0.0 % Normal 0-0.5 [facility] Comment on above: Performed By: #### C MP, CBC, MG, TROP, BNP #### [address] Platelet Estimate Normal Normal Normal [facility] Comment on above: Performed By: #### C MP, CBC, MG, TROP, BNP #### [address] Platelet mean volume (Bld) [Entitic vol] 7.5 fL Normal 6.6-10.1 [facility] Comment on above: Performed By: #### C MP, CBC, MG, TROP, BNP #### [address] Platelet Morphology Normal Normal Normal [facility] Comment on above: Result Comment: PERF ORMED BY: [place] [address] PATHOLOGIST LIBRARY MEDIA SPECIALIST JORDAN RODRIGUEZ M.D. Performed By: #### C MP, CBC, MG, TROP, BNP #### [address] Platelets (Bld) [#/Vol] 249 10*3/uL Normal 150-450 [facility] Comment on above: Performed By: #### C MP, CBC, MG, TROP, BNP #### [address] RBC (Bld) [#/Vol] 3.93 10*6/uL Normal 3.90-5.60 [facility] Comment on above: Performed By: #### C MP, CBC, MG, TROP, BNP #### [address] WBC (Bld) [#/Vol] 14.0 10*3/uL High 4.5-11.0 [facility] Comment on above: Performed By: #### C MP, CBC, MG, TROP, BNP #### [facility] [address] [place] [id number] [facility] US renal BIon 08-19-2020 US renal BI [facility] Main [place] [address] [place] [address] Ultrasound Report Signed Patient: Rashard Lyman MR#: [id number] : 1960 Acct:[id number] Age/Sex: 60 / M ADM Date: 08/18/20 Loc: Room: [address] [place] [address] Type: ADM IN Attending Dr: Eugene Morel [...] Hector Mckinney M.D.08/19/2020 6:09 PM Dictation Location: [place] [address] Tech: Sandra Mariela Transcribed By: JU 08/19/201808 Dictated By: Hector Mckinney II, MD 08/19/201807 Signed By: 08/19/201808 Normal [facility] Vitamin D 25 Hydroxy Totalon 08-19-2020 Vitamin D 25 Hydroxy Total 24.6 ng/mL Low 30-100 [facility] Comment on above: Result Comment: ADA MIN D STATUS 25([place])VITAMIN D RANGE (ng/mL) Deficient <20 Insufficient 20 to <30 Sufficient 30 to 100 Reference: Aki MF,Oriana NC, Elli JONAS, et al. Evaluation,treatment, and prevention of vitamin D deficiency; an Endocrine Society clinical practice guideline. JCEM. 2010; 96(7):1911-30. PERFORMED BY: [place] [address] PATHOLOGIST LIBRARY MEDIA SPECIALIST JORDAN RODRIGUEZ M.D. Performed By: #### C MP, CBC, MG, TROP, BNP #### [place] [id number] [facility] Activated partial thrombopla stin time (aPTT) in platelet poor plasma by coagulation aon 08-18-2020 aPTT Coag (PPP) [Time] 36.9 s 25.1-36.5 [facility] Albumin [Mass/volume] in Ser um or Plasmaon 08-18-2020 Albumin [Mass/Vol] 2.7 g/dL 3.2-5.5 [facility] B-Type Natriuretic Peptideon 08-18-2020 Natriuretic peptide B (Bld) [Mass/Vol] 48.0 pg/mL Normal 5-100 [facility] Comment on above: Result Comment: PERF ORMED BY: [place] [address] PATHOLOGIST LIBRARY MEDIA SPECIALIST JORDAN RODRIGUEZ M.D. Performed By: #### C MP, CBC, MG, TROP, BNP #### [address] Bacterial blood cultureon Bacteria identified Cx Nom (Bld) NO GROWTH 5 DAYS [facility] Basophils Auto (Bld) [#/Vol] on 08-18-2020 Basophils (Bld) [#/Vol] 0.0 10*3/uL 0.0-0.2 [facility] Basophils/100 WBC Auto (Bld) on 08-18-2020 Basophils/100 WBC (Bld) 0.3 % [facility] Beta Hydroxybuterateon 04-22 -2021 Beta Hydroxybuterate 0.44 mmol/L High 0.02-0.27 [facility] Comment on above: Result Comment: PERF ORMED BY: [place] [address] PATHOLOGIST LIBRARY MEDIA SPECIALIST JORDAN RODRIGUEZ M.D. Performed By: #### C MP, CBC, MG, TROP, BNP #### [address] Beta-hydroxybutyric acid faraz surementon 08-18-2020 Beta hydroxybutyrate [Mass/Vol] 0.44 mmol/L 0.02-0.27 [facility] BioFire Not Detectedon 08-18 BioFire Not Detected Not detected Normal Not Detecte [facility] Comment on above: Result Comment: This is a duplicate RP2.1 COVID (PCR) result to be used for statistical tracking purpose only. PERFORMED BY: [place] [address] PATHOLOGIST LIBRARY MEDIA SPECIALIST JORDAN RODRIGUEZ M.D. Performed By: #### C MP, CBC, MG, TROP, BNP #### [address] Blood Cultureon 08-18-2020 Bacteria identified Cx Nom (Bld) NO GROWTH 5 DAYS PERFORMED BY: [place] [address] PATHOLOGIST LIBRARY MEDIA SPECIALIST JORDAN RODRIGUEZ M.D. [facility] Comment on above: Performed By: #### C MP, CBC, MG, TROP, BNP #### [address] Bacteria identified Cx Nom (Bld) NO GROWTH 5 DAYS PERFORMED BY: [place] [address] PATHOLOGIST LIBRARY MEDIA SPECIALIST JORDAN RODRIGUEZ M.D. [facility] Comment on above: Performed By: #### C MP, CBC, MG, TROP, BNP #### [address] Blood hemoglobin measurement (mass/volume)on 08-18-2020 Hemoglobin (Bld) [Mass/Vol] 11.8 g/dL 13.0-17.0 [facility] Blood leukocytes automated c ount (number/volume)on 08-18-2020 WBC (Bld) [#/Vol] 15.3 10*3/uL 4.5-11.0 [facility] COVID-19 Antigenon 1 COVID-19 Antigen Healthcare Worker?: [...] its performance Liat Disclaimer characteristic determined by [employer] and Liat Disclaimer validated at [facility]. This Liat Disclaimer test has not [...] Emergency Use Authorization for Coronavirus Liat Disclaimer iseas during the Public Health Emergency) Liat Disclaimer [...] is terminated or revoked sooner. PERFORMED BY: [place] [address] PATHOLOGIST LIBRARY MEDIA SPECIALIST JORDAN RODRIGUEZ M.D. [facility] Comment on above: Performed By: #### C OVID-19 LIAT, SOFIANEG #### [facility] [address] [place] [address] COVID-19 Detected/Not Detect edon 08-18-2020 SARS-CoV-2 (COVID-19) RNA SUDHA+non-probe Ql (Nph) Not detected Not Detecte [facility] Comment on above: This is a duplicate RP2.1 COVID (PCR) result to be used for statistical tracking purpose only. COVID-19 SOFIAon 08-18-2020 SARS-CoV+SARS-CoV-2 (COVID-19) Ag IA.rapid Ql (Resp) Negative Negative [facility] Comment on above: This is a duplicate Liat SARS Antigen (AGUSTINA) result to be used for statistical tracking purpose only. Coagulation Profileon 2020 aPTT Coag (Bld) [Time] 36.9 s High 25.1-36.5 [facility] Comment on above: Order Comment: REDRA W FOR SHORT DRAW AND HEMOLYSIS Result Comment: PERF ORMED BY: [place] [address] PATHOLOGIST LIBRARY MEDIA SPECIALIST JORDAN RODRIGUEZ M.D. Performed By: #### P P #### [address] INR Coag (PPP) [Relative time] 1.0 {INR} Normal [facility] Comment on above: Order Comment: REDRA [...] 4.5 Performed By: #### P P #### [address] PT Coag (PPP) [Time] 11.7 s Normal 9.0-12.9 [facility] Comment on above: Order Comment: REDRA W FOR SHORT DRAW AND HEMOLYSIS Performed By: #### P P #### [address] Complete Blood Count Auto Di ffon 08-18-2020 Basophils (Bld) [#/Vol] 0.0 10*3/uL Normal 0.0-0.2 [facility] Comment on above: Result Comment: PERF ORMED BY: [place] [address] PATHOLOGIST LIBRARY MEDIA SPECIALIST JORDAN RODRIGUEZ M.D. Performed By: #### C MP, CBC, MG, TROP, BNP #### [address] Basophils/100 WBC (Bld) 0.3 % Normal . [facility] Comment on above: Performed By: #### C MP, CBC, MG, TROP, BNP #### [address] Eosinophils (Bld) [#/Vol] 0.5 10*3/uL High 0.0-0.45 [facility] Comment on above: Performed By: #### C MP, CBC, MG, TROP, BNP #### [address] Eosinophils/100 WBC (Bld) 3.4 % Normal . [facility] Comment on above: Performed By: #### C MP, CBC, MG, TROP, BNP #### [address] Erythrocyte distribution width (RBC) [Ratio] 16.3 % High 12.0-14.8 [facility] Comment on above: Performed By: #### C MP, CBC, MG, TROP, BNP #### [address] Hematocrit (Bld) [Volume fraction] 36.1 % Low 38.8-50.0 [facility] Comment on above: Performed By: #### C MP, CBC, MG, TROP, BNP #### [address] Hemoglobin (Bld) [Mass/Vol] 11.8 g/dL Low 13.0-17.0 [facility] Comment on above: Performed By: #### C MP, CBC, MG, TROP, BNP #### [address] Lymphocytes (Bld) [#/Vol] 0.9 10*3/uL Low 1.00-4.8 [facility] Comment on above: Performed By: #### C MP, CBC, MG, TROP, BNP #### [address] Lymphocytes/100 WBC (Bld) 6.1 % Normal . [facility] Comment on above: Performed By: #### C MP, CBC, MG, TROP, BNP #### [address] MCH (RBC) [Entitic mass] 27.2 pg Low 27.5-35.2 [facility] Comment on above: Performed By: #### C MP, CBC, MG, TROP, BNP #### [address] MCV (RBC) [Entitic vol] 83.5 fL Normal 83.5-101 [facility] Comment on above: Performed By: #### C MP, CBC, MG, TROP, BNP #### [address] Mean Corpuscular HGB Conc 32.6 g/dL Normal 32.5-35.6 [facility] Comment on above: Performed By: #### C MP, CBC, MG, TROP, BNP #### [address] Monocytes (Bld) [#/Vol] 1.5 10*3/uL High 0.0-0.8 [facility] Comment on above: Performed By: #### C MP, CBC, MG, TROP, BNP #### [address] Monocytes/100 WBC (Bld) 10.1 % Normal . [facility] Comment on above: Performed By: #### C MP, CBC, MG, TROP, BNP #### [address] Neutrophils (Bld) [#/Vol] 12.3 10*3/uL High 1.8-7.7 [facility] Comment on above: Performed By: #### C MP, CBC, MG, TROP, BNP #### [address] Neutrophils/100 WBC (Bld) 80.1 % Normal . [facility] Comment on above: Performed By: #### C MP, CBC, MG, TROP, BNP #### [address] Nucleated RBC/100 WBC (Bld) [Ratio] 0.1 % Normal 0-0.5 [facility] Comment on above: Performed By: #### C MP, CBC, MG, TROP, BNP #### [address] Platelet mean volume (Bld) [Entitic vol] 7.3 fL Normal 6.6-10.1 [facility] Comment on above: Performed By: #### C MP, CBC, MG, TROP, BNP #### [address] Platelets (Bld) [#/Vol] 249 10*3/uL Normal 150-450 [facility] Comment on above: Performed By: #### C MP, CBC, MG, TROP, BNP #### [address] RBC (Bld) [#/Vol] 4.32 10*6/uL Normal 3.90-5.60 [facility] Comment on above: Performed By: #### C MP, CBC, MG, TROP, BNP #### [address] WBC (Bld) [#/Vol] 15.3 10*3/uL High 4.5-11.0 [facility] Comment on above: Performed By: #### C MP, CBC, MG, TROP, BNP #### [address] Comprehensive Metabolic Pane babatunde 08-18-2020 Albumin [Mass/Vol] 2.7 g/dL Low 3.2-5.5 [facility] Comment on above: Performed By: #### C MP, CBC, MG, TROP, BNP #### [address] Albumin/Globulin [Mass ratio] 0.6 {ratio} Normal [facility] Comment on above: Performed By: #### C MP, CBC, MG, TROP, BNP #### [facility] [address] ALP [Catalytic activity/Vol] 88 U/L Normal 32-92 [facility] Comment on above: Performed By: #### C MP, CBC, MG, TROP, BNP #### [facility] [address] ALT [Catalytic activity/Vol] 13 U/L Normal 10-60 [facility] Comment on above: Performed By: #### C MP, CBC, MG, TROP, BNP #### [facility] [address] [place] [address] AST [Catalytic activity/Vol] 16 U/L Normal 10-42 [facility] Comment on above: Performed By: #### C MP, CBC, MG, TROP, BNP #### [facility] [address] [place] [address] Bilirubin [Mass/Vol] 0.7 mg/dL Normal 0.3-1.2 [facility] Comment on above: Performed By: #### C MP, CBC, MG, TROP, BNP #### [facility] [address] [place] [address] Calcium [Mass/Vol] 8.9 mg/dL Normal 8.2-10.2 [facility] Comment on above: Performed By: #### C MP, CBC, MG, TROP, BNP #### [facility] [address] [place] [address] [place] Chloride [Moles/Vol] 95 mmol/L Normal 95-114 [facility] Comment on above: Performed By: #### C MP, CBC, MG, TROP, BNP #### [facility] [address] [place] [address] [place] CO2 [Moles/Vol] 22.6 mmol/L Normal 22.0-30.0 [facility] Comment on above: Performed By: #### C MP, CBC, MG, TROP, BNP #### [facility] [address] [place] [address] [place] Creatinine [Mass/Vol] 3.04 mg/dL High 0.64-1.27 [facility] Comment on above: Performed By: #### C MP, CBC, MG, TROP, BNP #### [address] Creatinine Clr Calc Pharmacy 38.57 [facility] Comment on above: Performed By: #### C MP, CBC, MG, TROP, BNP #### [address] Estimated GFR ( Camilla 26 [facility] Comment on above: Result Comment: GFR estimated reference range: According to KDOQI guidelines, <60 ml/min/1.73m2 is sufficient to diagnose a patient with chronic kidney disease. Performed By: #### C MP, CBC, MG, TROP, BNP #### [address] Estimated GFR (Non- Am 21 [facility] Comment on above: Performed By: #### C MP, CBC, MG, TROP, BNP #### [address] Globulin (S) [Mass/Vol] 4.4 g/dL [facility] Comment on above: Performed By: #### C MP, CBC, MG, TROP, BNP #### [address] Glucose [Mass/Vol] 512 mg/dL Off scale high 70-100 [facility] Comment on above: Result Comment: Resu lts called at 1659 on 08/18/20 Random Glucose Reference Range is dependent on time and content of last meal. Glucose of more than 200 mg/dL in a nonstressed, ambulatory subject supports the diagnosis of Diabetes Mellitus. ADA recommended reference range Performed By: #### C MP, CBC, MG, TROP, BNP #### [address] Potassium [Moles/Vol] 4.2 mmol/L Normal 3.5-5.1 [facility] Comment on above: Performed By: #### C MP, CBC, MG, TROP, BNP #### [address] Protein [Mass/Vol] 7.1 g/dL Normal 6.1-7.9 [facility] Comment on above: Performed By: #### C MP, CBC, MG, TROP, BNP #### [facility] [address] Sodium [Moles/Vol] 128 mmol/L Low 136-146 [facility] Comment on above: Performed By: #### C MP, CBC, MG, TROP, BNP #### [facility] [address] Urea nitrogen [Mass/Vol] 27 mg/dL High 01-19 [facility] Comment on above: Performed By: #### C MP, CBC, MG, TROP, BNP #### [facility] [address] Creatinine and Glomerular fi ltration rate.predicted panel (S/P/Bld)on 08-18-2020 Creatinine [Mass/Vol] 3.04 mg/dL 0.64-1.27 [facility] ECG 12 lead ECGon 08-18-2020 ECG 12 lead ECG [facility] Main [place] [address] [place] [address] Electrocardiograph Report Signed Patient: Rashard Lyman MR#: [id number] : 1960 Acct:[id number] Age/Sex: 60 / M ADM Date: 08/18/20 Loc: Room: [address] [place] [address] Type: ADM IN Attending Dr: Eugene Morel [...] was found Confirmed by ADRIA PABON DO ([id number]) on 08/19/2020 10:02:40 AM Referred By: Electronically Signed By:ADRIA PABON DO Transcribed By: MUS Dictated By: Adria Pabon DO 08/18/20 1539 Signed By: 08/19/20 1002 Normal [facility] Eosinophils Auto (Bld) [#/Vo l]on 08-18-2020 Eosinophils (Bld) [#/Vol] 0.5 10*3/uL 0.0-0.45 [facility] Eosinophils/100 WBC Auto (Bl d)on 08-18-2020 Eosinophils/100 WBC (Bld) 3.4 % [facility] Erythrocyte distribution wid th Auto (RBC) [Ratio]on 08-18-2020 Erythrocyte distribution width (RBC) [Ratio] 16.3 % 12.0-14.8 [facility] Estimated glomerular filtrat ion rate (GFR) non- Americanon 08-18-2020 GFR/1.73 sq M.predicted among non-blacks MDRD (S/P/Bld) [Vol rate/Area] 21 mL/Min [facility] Globulin Calc (S) [Mass/Vol] on 08-18-2020 Globulin (S) [Mass/Vol] 4.4 g/dL [facility] Glucose Glucometer (BldC) [M ass/Vol]on 08-18-2020 Glucose [Mass/Vol] 388 mg/dL [facility] Comment on above: Random Glucose Refer ence Range is dependent on time and content of last meal. Glucose of more than 200 mg/dL in a nonstressed, ambulatory subject supports the diagnosis of Diabetes Mellitus. Glucose Poct Glucometerson 0 08-18-2020 Glucose [Mass/Vol] 388 mg/dL Normal [facility] Comment on above: Result Comment: [place] om Glucose Reference Range is dependent on time and content of last meal. Glucose of more than 200 mg/dL in a nonstressed, ambulatory subject supports the diagnosis of Diabetes Mellitus. PERFORMED BY: [facility] [address] [place] [address] PATHOLOGIST LIBRARY MEDIA SPECIALIST JORDAN RODRIGUEZ M.D. Performed By: #### C MP, CBC, MG, TROP, BNP #### [facility] [address] [place] [id number] [facility] Hematocrit Auto (Bld) [Volum e fraction]on 08-18-2020 Hematocrit (Bld) [Volume fraction] 36.1 % 38.8-50.0 [facility] Laboratory - Chemistry and C hemistry - challengeon 08-18-2020 CO2 [Moles/Vol] 25.7 mmol/L 24.0-29.0 [facility] HCO3 (Bld) [Moles/Vol] 24.3 mmol/L 23.0-29.0 [facility] Magnesium [Mass/Vol] 2.2 mg/dL 1.6-2.6 [facility] Natriuretic peptide B (Bld) [Mass/Vol] 48.0 pg/mL 5-100 [facility] Laboratory - Coagulationon 0 08-18-2020 PT Coag (PPP) [Time] 11.7 s 9.0-12.9 [facility] Laboratory - Hematology and Cell countson 08-18-2020 Nucleated RBC/100 WBC (Bld) [Ratio] 0.1 % 0-0.5 [facility] Lymphocytes Auto (Bld) [#/Vo l]on 08-18-2020 Lymphocytes (Bld) [#/Vol] 0.9 10*3/uL 1.00-4.8 [facility] Lymphocytes/100 WBC Auto (Bl d)on 08-18-2020 Lymphocytes/100 WBC (Bld) 6.1 % [facility] MCH Auto (RBC) [Entitic mass ]on 08-18-2020 MCH (RBC) [Entitic mass] 27.2 pg 27.5-35.2 [facility] MCHC Auto (RBC) [Mass/Vol]on 08-18-2020 MCHC (RBC) [Mass/Vol] 32.6 g/dL 32.5-35.6 [facility] MCV Auto (RBC) [Entitic vol] on 08-18-2020 MCV (RBC) [Entitic vol] 83.5 fL 83.5-101 [facility] Magnesiumon 08-18-2020 Magnesium [Mass/Vol] 2.2 mg/dL Normal 1.6-2.6 [facility] Comment on above: Result Comment: PERF ORMED BY: [facility] [address] [place] [address] PATHOLOGIST LIBRARY MEDIA SPECIALIST JORDAN RODRIGUEZ M.D. Performed By: #### C MP, CBC, MG, TROP, BNP #### [facility] [address] Monocytes Auto (Bld) [#/Vol] on 08-18-2020 Monocytes (Bld) [#/Vol] 1.5 10*3/uL 0.0-0.8 [facility] Monocytes/100 WBC Auto (Bld) on 08-18-2020 Monocytes/100 WBC (Bld) 10.1 % [facility] Neutrophils Auto (Bld) [#/Vo l]on 08-18-2020 Neutrophils (Bld) [#/Vol] 12.3 10*3/uL 1.8-7.7 [facility] Neutrophils/100 WBC Auto (Bl d)on 08-18-2020 Neutrophils/100 WBC (Bld) 80.1 % [facility] No Panel Informationon 08-18 Respiratory Panel (PCR) [facility] Blood Gas Critical Value See comment [facility] Comment on above: Critical Value fonseca d on: 08/18/2020 at 17:44 Blood Gas Sample Site Venous [facility] FiO2 21 % [facility] Venous Blood Base Excess -1.5 mmol/L -3.0-3.0 [facility] Venous Blood Oxygen Content 4.1 mmol/L 6.6-9.7 [facility] Venous Blood Oxygen Saturation 53.3 % 73.0-76.0 [facility] Venous Blood Partial Pressure CO2 45.2 mm[Hg] 38.0-50.0 [facility] Venous Blood Partial Pressure O2 24.4 mm[Hg] 35.0-45.0 [facility] Venous Blood pH 7.35 7.32-7.43 [facility] Estimated GFR () 26 mL/Min [facility] Comment on above: GFR estimated refere nce range: According to KDOQI guidelines, <60 ml/min/1.73m2 is sufficient to diagnose a patient with chronic kidney disease. Pharmacy Creatinine Clearance (Chem 38.57 [facility] Platelet mean volume Auto (B ld) [Entitic vol]on 08-18-2020 Platelet mean volume (Bld) [Entitic vol] 7.3 fL 6.6-10.1 [facility] Platelet poor plasma interna tional normalized ratio (INR) by coagulation assay (relaton 08-18-2020 INR Coag (PPP) [Relative time] 1.0 {INR} [facility] Comment on above: INR Therapeutic Rang e [...] 08-18-2020 Platelets (Bld) [#/Vol] 249 10*3/uL 150-450 [facility] Protein [Mass/volume] in Ser um or Plasmaon 08-18-2020 Protein [Mass/Vol] 7.1 g/dL 6.1-7.9 [facility] RBC Auto (Bld) [#/Vol]on RBC (Bld) [#/Vol] 4.32 10*6/uL 3.90-5.60 [facility] Respiratory (Upper) Panel, P CRon 08-18-2020 Respiratory (Upper) Panel, PCR Adenovirus Not detected Bordetella parapertussis Not detected Chlamydia pneumoniae Not detected Coronavirus 229E Not detected Coronavirus HKU1 Not detected Coronavirus NL63 Not detected Coronavirus OC43 Not detected COVID19 Blank Space -- COVID19 Disclaimer This test was developed and its performance COVID19 Disclaimer characteristics determined by [employer], COVID19 Disclaimer Disease-2019 during the Public Health [...] sooner. [employer]19 [employer]claimer [employer] and validated at [address] This has not been FDA cleared or COVID19 Disclaimer approved. This test has been authorized by FDA under COVID19 Disclaimer an Emergency Use Authorization (EUA). This test has COVID19 Disclaimer been validated in accordance with the FDA's Guidance COVID19 Disclaimer Document (Policy for Diagnostics Testing Laboratories COVID19 Disclaimer Certified to Perform High Complexity Testing under CLIA COVID19 Disclaimer prior to Emergency Use Authorization [...] COVID-19 Detected/Not Detected Not detected PERFORMED BY: [place] [address] PATHOLOGIST LIBRARY MEDIA SPECIALIST JORDAN RODRIGUEZ M.D. [facility] Comment on above: Performed By: #### C MP, CBC, MG, TROP, BNP #### [address] Serum or plasma alanine gomez otransferase measurement without P-5'-P (enzymatic activion 08-18-2020 ALT No additional P-5'-P [Catalytic activity/Vol] 13 U/L 10-60 [facility] Serum or plasma albumin/glob ulin mass ratioon 08-18-2020 Albumin/Globulin [Mass ratio] 0.6 {ratio} [facility] Serum or plasma alkaline kayode sphatase measurement (enzymatic activity/volume)on 08-18-2020 ALP [Catalytic activity/Vol] 88 U/L 32-92 [facility] Serum or plasma aspartate am inotransferase measurement (enzymatic activity/volume)on 08-18-2020 AST [Catalytic activity/Vol] 16 U/L 10-42 [facility] Serum or plasma calcium joel urement (mass/volume)on 08-18-2020 Calcium [Mass/Vol] 8.9 mg/dL 8.2-10.2 [facility] Serum or plasma cardiac trop onin I measurement (mass/volume)on 08-18-2020 Troponin I.cardiac [Mass/Vol] ng/mL 0-0.02 [facility] Comment on above: H[place] Cut off value > or equal to 0.03 ng/mL in conjunction with clinical conditions of myocardial infarction.(www.escardio.org/guidelines) Serum or plasma chloride faraz surement (moles/volume)on 08-18-2020 Chloride [Moles/Vol] 95 mmol/L 95-114 [facility] Serum or plasma glucose joel urement (mass/volume)on 08-18-2020 Glucose [Mass/Vol] 512 mg/dL 70-100 [facility] Comment on above: Results calledat 165 9 on 08/18/20 ADA recommended reference rangeRandom Glucose Reference Range is dependent on time and content of last meal. Glucose of more than 200 mg/dL in a nonstressed, ambulatory subject supports the diagnosis of Diabetes Mellitus. Serum or plasma potassium me asurement (moles/volume)on 08-18-2020 Potassium [Moles/Vol] 4.2 mmol/L 3.5-5.1 [facility] Serum or plasma sodium measu rement (moles/volume)on 08-18-2020 Sodium [Moles/Vol] 128 mmol/L 136-146 [facility] Serum or plasma total biliru bin measurement (mass/volume)on 08-18-2020 Bilirubin [Mass/Vol] 0.7 mg/dL 0.3-1.2 [facility] Serum or plasma total carbon dioxide measurement (moles/volume)on 08-18-2020 CO2 [Moles/Vol] 22.6 mmol/L 22.0-30.0 [facility] Serum or plasma urea nitroge n measurement (mass/volume)on 08-18-2020 Urea nitrogen [Mass/Vol] 27 mg/dL 01-19 [facility] Liat Ag Negativeon 08-19-19 Liat Ag Negative Negative Normal Negative [facility] Comment on above: Result Comment: This is a duplicate Liat SARS Antigen (AGUSTINA) result to be used for statistical tracking purpose only. PERFORMED BY: [place] [address] PATHOLOGIST LIBRARY MEDIA SPECIALIST JORDAN RODRIGUEZ M.D. Performed By: #### C OVID-19 LIAT, SOFIANEG #### [address] Troponin I(TnI)on 08-18-2020 Troponin I.cardiac [Mass/Vol] ng/mL Normal 0-0.02 [facility] Comment on above: Result Comment: [place] Cut off value > or equal to 0.03 ng/mL in conjunction with clinical conditions of myocardial infarction. (www.escardio.org/guidelines) PERFORMED BY: [place] [address] PATHOLOGIST LIBRARY MEDIA SPECIALIST JORDAN RODRIGUEZ M.D. Performed By: #### C MP, CBC, MG, TROP, BNP #### [address] Venous Blood Gason CO2 [Moles/Vol] 25.7 mmol/L Normal 24.0-29.0 [facility] Comment on above: Performed By: #### V BG #### Point of Care testing , HCO3 (Bld) [Moles/Vol] 24.3 mmol/L Normal 23.0-29.0 [facility] Comment on above: Performed By: #### V BG #### Point of Care testing , Respiratory Critical Normal [facility] Comment on above: Result Comment: Crit ical Value called on: 08/18/2020 at 17:44 PERFORMED BY: [place] [id number] PATHOLOGIST LIBRARY MEDIA SPECIALIST JORDAN RODRIGUEZ M.D. Performed By: #### V BG #### Point of Care testing , VBG Base Excess -1.5 mmol/L Normal -3.0-3.0 [facility] Comment on above: Performed By: #### V BG #### Point of Care testing , VBG Draw Site Venous Normal [facility] Comment on above: Performed By: #### V BG #### Point of Care testing , VBG Frac Inspired O2 21 % Normal [facility] Comment on above: Performed By: #### V BG #### Point of Care testing , VBG O2 Content 4.1 mmol/L Low 6.6-9.7 [facility] Comment on above: Performed By: #### V BG #### Point of Care testing , VBG Oxygen Saturation 53.3 % Off scale low 73.0-76.0 [facility] Comment on above: Performed By: #### V BG #### Point of Care testing , VBG PCO2 45.2 mm[Hg] Normal 38.0-50.0 [facility] Comment on above: Performed By: #### V BG #### Point of Care testing , VBG PH Venous PH 7.35 Normal 7.32-7.43 [facility] Comment on above: Performed By: #### V BG #### Point of Care testing , VBG PO2 24.4 mm[Hg] Low 35.0-45.0 [facility] Comment on above: Performed By: #### V BG #### Point of Care testing , XR chest 1V portableon 08-18 XR chest 1V portable [address] [address] XRay Report Signed Patient: Rashard Lyman MR#: [id number] : 1960 Acct:[id number] Age/Sex: 60 / M ADM Date: 08/18/20 Loc: ER Room: Type: REG ER Attending Dr: Ordering Provider: Mariana Basilio [...] Chitra Brantley M.D.08/18/2020 4:24 PM Dictation Location: [place] [address] Transcribed By: [facility] 08/18/201623 Dictated By: Chitra Brantley MD 08/18/201622 Signed By: 08/18/201623 [facility] CBC COMPLETE BLOOD COUNTon 0 07-22-2020 Erythrocyte distribution width (RBC) [Ratio] 15.0 % Normal 11.5-15.0 [facility] Comment on above: Order Comment: No: D o not add to previous draw Performed By: #### 8 [id number] #### [facility] [address] [place] [address], [facility] Hematocrit (Bld) [Volume fraction] 32.4 % Low 39.0-50.0 [facility] Comment on above: Order Comment: No: D o not add to previous draw Performed By: #### 8 [id number] #### [facility] [address] [place] [address], [place] Hemoglobin (Bld) [Mass/Vol] 9.5 g/dL Low 13.0-17.0 [facility] Comment on above: Order Comment: No: D o not add to previous draw Performed By: #### 8 5499 #### [facility] [address] [place] [address], [place] MCH (RBC) [Entitic mass] 26.7 pg Low 27.0-33.0 [facility] Comment on above: Order Comment: No: D o not add to previous draw Performed By: #### 8 [id number] #### [facility] [address] [place] [address], [facility] MCHC (RBC) [Mass/Vol] 29.3 g/dL Low 32.0-35.0 [facility] Comment on above: Order Comment: No: D o not add to previous draw Performed By: #### 8 [id number] #### [facility] [address] [facility] [place] [id number], [facility] MCV (RBC) [Entitic vol] 91.0 fL Normal 82.0-98.0 [facility] Comment on above: Order Comment: No: D o not add to previous draw Performed By: #### 8 [id number] #### [facility] [address] [facility] [place] [address], [facility] Nucleated RBC/100 WBC (Bld) [Ratio] 0 % Normal 0-0 [facility] Comment on above: Order Comment: No: D o not add to previous draw Performed By: #### 8 [id number] #### [facility] [address] [facility] [facility] [place] [id number], [facility] PLAT CNT 276 10*3/uL Normal 150-400 [facility] Comment on above: Order Comment: No: D o not add to previous draw Performed By: #### 8 [id number] #### [facility] [address] [facility]. [place] [id number], [facility] RBC (Bld) [#/Vol] 3.56 10*6/uL Low 4.20-5.70 [facility] Comment on above: Order Comment: No: D o not add to previous draw Performed By: #### 8 [id number] #### [facility] [address] [place] [id number], [facility] WBC (Bld) [#/Vol] 8.61 10*3/uL Normal 4.00-10.60 [facility] Comment on above: Order Comment: No: D o not add to previous draw Performed By: #### 8 [id number] #### [facility] [address] [place] [address], [facility] COMP METABOLIC PANELon 07-22 Albumin [Mass/Vol] 2.7 g/dL Low 3.5-5.7 [facility] Comment on above: Order Comment: No: D o not add to previous draw Performed By: #### 8 [id number] #### [facility] [address] [place] [address], [place] ALKALINE PHOSPH 70 IU/L Normal 34-104 [facility] Comment on above: Order Comment: No: D o not add to previous draw Performed By: #### 8 [id number] #### [facility] [address] [place] [address], [place] ALT [Catalytic activity/Vol] 4 U/L Low 7-52 [facility] Comment on above: Order Comment: No: D o not add to previous draw Performed By: #### 8 [id number] #### [facility] [address] [place] [address], [place] AST [Catalytic activity/Vol] 15 U/L Normal 13-39 [facility] Comment on above: Order Comment: No: D o not add to previous draw Performed By: #### 8 [id number] #### [facility] [address] [place] [address], [place] Bilirubin [Mass/Vol] 0.2 mg/dL Low 0.3-1.0 [facility] Comment on above: Order Comment: No: D o not add to previous draw Performed By: #### 8 5499 #### [facility] [address] [place] [address], [place] Calcium [Mass/Vol] 8.9 mg/dL Normal 8.6-10.3 [facility] Comment on above: Order Comment: No: D o not add to previous draw Performed By: #### 8 5499 #### [facility] [address] [place] [address], [place] Chloride [Moles/Vol] 109 mmol/L High 98-107 [facility] Comment on above: Order Comment: No: D o not add to previous draw Performed By: #### 8 5499 #### [facility] [address] [place] [address], [place] CO2 [Moles/Vol] 24 mmol/L Normal 21-31 [facility] Comment on above: Order Comment: No: D o not add to previous draw Performed By: #### 8 5499 #### [facility] [address] [place] [address], [place] Creatinine [Mass/Vol] 3.39 mg/dL High 0.70-1.30 [facility] Comment on above: Order Comment: No: D o not add to previous draw Performed By: #### 8 5499 #### [facility] [address] [place] [address], [place] eGFR- 23 ml/min/1.73sq m Abnormal >60 [facility] Comment on above: Order Comment: No: D o not add to previous draw Performed By: #### 8 5499 #### [facility] [address] [place] [address], [place] eGFR- non- 19 ml/min/1.73sq m Abnormal >60 [facility] Comment on above: Order Comment: No: D o not add to previous draw Performed By: #### 8 5499 #### [facility] [address] [place] [address], [place] Glucose [Mass/Vol] 90 mg/dL Normal 70-100 [facility] Comment on above: Order Comment: No: D o not add to previous draw Performed By: #### 8 5499 #### [facility] [address] [place] [address], [place] Potassium [Moles/Vol] 4.4 mmol/L Normal 3.5-5.1 [facility] Comment on above: Order Comment: No: D o not add to previous draw Performed By: #### 8 5499 #### [facility] [address] [place] [address], [place] Protein [Mass/Vol] 5.9 g/dL Low 6.0-8.3 [facility] Comment on above: Order Comment: No: D o not add to previous draw Performed By: #### 8 5499 #### [facility] [address] [place] [address], [place] Sodium [Moles/Vol] 140 mmol/L Normal 136-145 [facility] Comment on above: Order Comment: No: D o not add to previous draw Performed By: #### 8 5499 #### [facility] [address] [place] [address], [place] Urea nitrogen [Mass/Vol] 35 mg/dL High 7-25 [facility] Comment on above: Order Comment: No: D o not add to previous draw Performed By: #### 8 5499 #### [facility] [address] [place] [address], [place] POC GLUCOSE LABon 07-22-2020 Glucose [Mass/Vol] 192 mg/dL High 70-100 [facility] Comment on above: Performed By: #### 8 5499 #### [facility] [address] [place] [address], [place] Glucose [Mass/Vol] 95 mg/dL Normal 70-100 [facility] Comment on above: Performed By: #### 5 7307, 40096 #### [facility] [address] [place] [address], [place] Glucose [Mass/Vol] 123 mg/dL High 70-100 [facility] Comment on above: Performed By: #### 8 5499 ####[facility] [place] [address], [place] ARTERIAL BLOOD GAS WITH ICAo n 07-21-2020 BASE EXCESS -2 mmol/L Normal -2-3 [facility] Comment on above: Performed By: #### 8 5499 #### [facility] [address] [place] [address], [place] [employer] FOCUS Normal [facility] Comment on above: Performed By: #### 8 5499 #### [facility] [address] [place] [address], [place] HCO3 (Bld) [Moles/Vol] 24 mmol/L Normal 21-28 [facility] Comment on above: Performed By: #### 8 5499 #### [facility] [address] [place] [address], [place] IONIZED CALCIUM 1.25 mmol/L Normal 1.13-1.32 [facility] Comment on above: Performed By: #### 8 5499 #### [facility] [address] [place] [address], [place] LPM 4.0 LPM Normal [facility] Comment on above: Performed By: #### 8 5499 #### [facility] [address] [place] [address], [place] MODALITY BIPAP Normal [facility] Comment on above: Performed By: #### 8 5499 #### [facility] [address] [place] [address], [place] Oxygen (Bld) [Partial pressure] 91 mm[Hg] Normal 83-108 [facility] Comment on above: Performed By: #### 8 5499 #### [facility] [address] [place] [address], [place] Oxygen saturation in Blood 95.9 % Normal 94.0-97.0 [facility] Comment on above: Performed By: #### 8 5499 #### [facility] [address] [place] [address], [facility] PCO2 47 mmHg High 35-45 [facility] Comment on above: Performed By: #### 8 5499 #### [facility] [address] [place] [address], [facility] PEEP 8.0 CMH20 Normal [facility] Comment on above: Performed By: #### 8 5499 #### [facility] [address] [place] [address], [facility] pH (Bld) 7.32 [pH] Low 7.35-7.45 [facility] Comment on above: Performed By: #### 8 5499 #### [facility] [address] [place] [address], [facility] PRESSURE SUPPORT 16 Normal [facility] Comment on above: Performed By: #### 8 [id number] #### [facility] [address] [place] [address], [facility] BASE EXCESS -3 mmol/L Low -2-3 [facility] Comment on above: Performed By: #### 3 0318 #### [facility] [address] [place] [address], [facility] [employer]ERY SYSTEMS NASAL CANNULA Normal [facility] Comment on above: Performed By: #### 3 0318 #### [facility] [address] [facility] [place] [address], [facility] HCO3 (Bld) [Moles/Vol] 25 mmol/L Normal 21-28 [facility] Comment on above: Performed By: #### 3 0318 #### [facility] [address] [place] [address], [facility] IONIZED CALCIUM 1.26 mmol/L Normal 1.13-1.32 [facility] Comment on above: Performed By: #### 3 0318 #### [facility] [address] [place] [address], [facility] LPM 2.0 LPM Normal [facility] Comment on above: Performed By: #### 3 8 #### [facility] [address] [place] [address], [facility] Oxygen (Bld) [Partial pressure] 92 mm[Hg] Normal 83-108 [facility] Comment on above: Performed By: #### 3 8 #### [facility] [address] [place] [address], [facility] Oxygen saturation in Blood 95.7 % Normal 94.0-97.0 [facility] Comment on above: Performed By: #### 3 8 #### [facility] [address] [place] [address], [facility] PCO2 54 mmHg High 35-45 [facility] Comment on above: Performed By: #### 3 8 #### [facility] [address] [place] [address], [facility] pH (Bld) 7.27 [pH] Low 7.35-7.45 [facility] Comment on above: Performed By: #### 3 8 #### [facility] [address] [place] [address], [facility] BASIC METABOLIC PANELon 06-28 Calcium [Mass/Vol] 9.0 mg/dL Normal 8.6-10.3 [facility] Comment on above: Order Comment: No: D o not add to previous drawPt not in room rn will return when back. Performed By: #### 3 4 #### [facility] [address] [place] [address], [facility] Chloride [Moles/Vol] 106 mmol/L Normal 98-107 [facility] Comment on above: Order Comment: No: D o not add to previous drawPt not in room rn will return when back. Performed By: #### 3 1943 #### [facility] [address] [place] [address], [facility] CO2 [Moles/Vol] 25 mmol/L Normal 21-31 [facility] Comment on above: Order Comment: No: D o not add to previous drawPt not in room rn will return when back. Performed By: #### 3 1943 #### [facility] [address] [place] [address], [facility] Creatinine [Mass/Vol] 3.75 mg/dL High 0.70-1.30 [facility] Comment on above: Order Comment: No: D o not add to previous drawPt not in room rn will return when back. Performed By: #### 3 1943 #### [facility] [address] [place] [address], [facility] eGFR- 20 ml/min/1.73sq m Abnormal >60 [facility] Comment on above: Order Comment: No: D o not add to previous drawPt not in room rn will return when back. Performed By: #### 3 1943 #### [facility] [address] [place] [address], [facility] eGFR- non- 17 ml/min/1.73sq m Abnormal >60 [facility] Comment on above: Order Comment: No: D o not add to previous drawPt not in room rn will return when back. Performed By: #### 3 1943 #### [facility] [address] [place] [address], [facility] Glucose [Mass/Vol] 132 mg/dL High 70-100 [facility] Comment on above: Order Comment: No: D o not add to previous drawPt not in room rn will return when back. Performed By: #### 3 1943 #### [facility] [address] [place] [address], [facility] Potassium [Moles/Vol] 5.0 mmol/L Normal 3.5-5.1 [facility] Comment on above: Order Comment: No: D o not add to previous drawPt not in room rn will return when back. Performed By: #### 3 1943 #### [facility] [address] [place] [address], [facility] Sodium [Moles/Vol] 138 mmol/L Normal 136-145 [facility] Comment on above: Order Comment: No: D o not add to previous drawPt not in room rn will return when back. Performed By: #### 3 1943 #### [facility] [address] [place] [address], [facility] Urea nitrogen [Mass/Vol] 37 mg/dL High 7-25 [facility] Comment on above: Order Comment: No: D o not add to previous drawPt not in room rn will return when back. Performed By: #### 3 1943 #### [facility] [address] [place], [place] [id number] [place] [address] CBC COMPLETE BLOOD COUNTon 07-21-2020 Erythrocyte distribution width (RBC) [Ratio] 15.0 % Normal 11.5-15.0 [facility] Comment on above: Order Comment: No: D o not add to previous drawPt not in room rn will return when back. Performed By: #### 8 [id number] #### [facility] [address] [place] [address], [facility] Hematocrit (Bld) [Volume fraction] 33.9 % Low 39.0-50.0 [facility] Comment on above: Order Comment: No: D o not add to previous drawPt not in room rn will return when back. Performed By: #### 8 [id number] #### [facility] [address] [place] [address], [facility] Hemoglobin (Bld) [Mass/Vol] 9.9 g/dL Low 13.0-17.0 [facility] Comment on above: Order Comment: No: D o not add to previous drawPt not in room rn will return when back. Performed By: #### 8 [id number] #### [facility] [address] MCH (RBC) [Entitic mass] 26.9 pg Low 27.0-33.0 [facility] Comment on above: Order Comment: No: D o not add to previous drawPt not in room rn will return when back. Performed By: #### 8 [id number] #### [facility] [address] [place] [place] [address], [facility] MCHC (RBC) [Mass/Vol] 29.2 g/dL Low 32.0-35.0 [facility] Comment on above: Order Comment: No: D o not add to previous drawPt not in room rn will return when back. Performed By: #### 8 5499 #### [facility] [address] MCV (RBC) [Entitic vol] 92.1 fL Normal 82.0-98.0 [facility] Comment on above: Order Comment: No: D o not add to previous drawPt not in room rn will return when back. Performed By: #### 8 [id number] #### [facility] [address] Nucleated RBC/100 WBC (Bld) [Ratio] 0 % Normal 0-0 [facility] Comment on above: Order Comment: No: D o not add to previous drawPt not in room rn will return when back. Performed By: #### 8 5499 #### [facility] [address] [place] [address], [facility] PLAT CNT 288 10*3/uL Normal 150-400 [facility] Comment on above: Order Comment: No: D o not add to previous drawPt not in room rn will return when back. Performed By: #### 8 5499 #### [facility] [address] [place] [address], [facility] RBC (Bld) [#/Vol] 3.68 10*6/uL Low 4.20-5.70 [facility] Comment on above: Order Comment: No: D o not add to previous drawPt not in room rn will return when back. Performed By: #### 8 5499 #### [address] WBC (Bld) [#/Vol] 9.51 10*3/uL Normal 4.00-10.60 [facility] Comment on above: Order Comment: No: D o not add to previous drawPt not in room rn will return when back. Performed By: #### 8 [id number] #### [address] CHEST WO CONTRASTon 07-21 CT CHEST WO CONTRAST [facility] Department of Radiology [address] [place] [id number] Patient Name: RASHARD LYMAN : 1960 Sex: M Age: Race: White Pt. Location: [id number] Patient Status: I Ordered Date: 07/21/2020 6:00:00 [...] pneumonia. Electronically signed: Manuel Saldaña. Transcribed by: [email or web address], User Resident: Electronically Signed by: MANUEL SALDAÑA @ 07/21/2020 08:38 AM Normal [facility] Comment on above: Order Comment: Left Peural Effusion POC GLUCOSE LABon 07-21-2020 Glucose [Mass/Vol] 134 mg/dL High 70-100 [facility] Comment on above: Performed By: #### 5 0103 #### [facility] [address] [place] [address], [place] Glucose [Mass/Vol] 88 mg/dL Normal 70-100 [facility] Comment on above: Performed By: #### 8 5499 #### [facility] [address] [place] [address], [place] Glucose [Mass/Vol] 110 mg/dL High 70-100 [facility] Comment on above: Performed By: #### 8 5499 #### [facility] [address] [place] [address], [place] Glucose [Mass/Vol] 118 mg/dL High 70-100 [facility] Comment on above: Performed By: #### 5 7307, 77807 #### [facility] [address] [place] [address], [place] Glucose [Mass/Vol] 137 mg/dL High 70-100 [facility] Comment on above: Performed By: #### 5 7307, 46007 #### [facility] [address] [place] [address], [place] BASIC METABOLIC PANELon 03-2 Calcium [Mass/Vol] 8.4 mg/dL Low 8.6-10.3 [facility] Comment on above: Order Comment: No: D o not add to previous draw Performed By: #### 8 5499 #### [facility] [address] [place] [address], [place] Chloride [Moles/Vol] 107 mmol/L Normal 98-107 [facility] Comment on above: Order Comment: No: D o not add to previous draw Performed By: #### 8 5499 #### [facility] [address] [place] [address], [place] CO2 [Moles/Vol] 23 mmol/L Normal 21-31 [facility] Comment on above: Order Comment: No: D o not add to previous draw Performed By: #### 8 5499 #### [facility] [address] [place] [address], [place] Creatinine [Mass/Vol] 3.95 mg/dL High 0.70-1.30 [facility] Comment on above: Order Comment: No: D o not add to previous draw Performed By: #### 8 5499 #### [facility] [address] [place] [address], [place] eGFR- 19 ml/min/1.73sq m Abnormal >60 [facility] Comment on above: Order Comment: No: D o not add to previous draw Performed By: #### 8 5499 #### [facility] [address] [place] [address], [place] eGFR- non- 16 ml/min/1.73sq m Abnormal >60 [facility] Comment on above: Order Comment: No: D o not add to previous draw Performed By: #### 8 5499 #### [facility] [address] [place] [address], [place] Glucose [Mass/Vol] 110 mg/dL High 70-100 [facility] Comment on above: Order Comment: No: D o not add to previous draw Performed By: #### 8 5499 #### [facility] [address] [place] [address], [place] Potassium [Moles/Vol] 4.9 mmol/L Normal 3.5-5.1 [facility] Comment on above: Order Comment: No: D o not add to previous draw Performed By: #### 8 5499 #### [facility] [address] [place] [address], [place] Sodium [Moles/Vol] 137 mmol/L Normal 136-145 [facility] Comment on above: Order Comment: No: D o not add to previous draw Performed By: #### 8 5499 #### [facility] [address] [place] [address], [place] Urea nitrogen [Mass/Vol] 37 mg/dL High 7-25 [facility] Comment on above: Order Comment: No: D o not add to previous draw Performed By: #### 8 5499 #### [facility] [address] [place] [address], [place] CBC W/DIFFon 07-20-2020 ABS IMM GRANS 0.1 10*3/uL Normal 0.0-0.2 [facility] Comment on above: Order Comment: No: D o not add to previous draw Performed By: #### 8 5499 #### [facility] [address] [place] [address], [facility] ABS NEUTROPHILS 5.9 10*3/uL Normal 1.6-7.6 [facility] Comment on above: Order Comment: No: D o not add to previous draw Performed By: #### 8 5499 #### [facility] [address] [place] [address], [facility] Basophils (Bld) [#/Vol] 0.1 10*3/uL Normal 0.0-0.2 [facility] Comment on above: Order Comment: No: D o not add to previous draw Performed By: #### 8 [id number] #### [facility] [address] [place] [address], [facility] Basophils/100 WBC (Bld) 1.0 % Normal 0.0-1.0 [facility] Comment on above: Order Comment: No: D o not add to previous draw Performed By: #### 8 [id number] #### [facility] [address] [facility] [address], [facility] Eosinophils (Bld) [#/Vol] 0.4 10*3/uL Normal 0.0-0.5 [facility] Comment on above: Order Comment: No: D o not add to previous draw Performed By: #### 8 [id number] #### [facility] [address] [place] [id number], [facility] Eosinophils/100 WBC (Bld) 5.1 % Normal 0.0-6.0 [facility] Comment on above: Order Comment: No: D o not add to previous draw Performed By: #### 8 [id number] #### [facility] [address] [place] [id number], [place] Erythrocyte distribution width (RBC) [Ratio] 15.4 % High 11.5-15.0 [facility] Comment on above: Order Comment: No: D o not add to previous draw Performed By: #### 8 [id number] #### [facility] [address] [place] [address], [facility] Hematocrit (Bld) [Volume fraction] 35.7 % Low 39.0-50.0 [facility] Comment on above: Order Comment: No: D o not add to previous draw Performed By: #### 8 [id number] #### [facility] [address] [place] [address], [facility] Hemoglobin (Bld) [Mass/Vol] 10.3 g/dL Low 13.0-17.0 [facility] Comment on above: Order Comment: No: D o not add to previous draw Performed By: #### 8 [id number] #### [facility] [address] [facility] [place] [address], [facility] IMM PLATELET FRAC 0.4 % Low 0.8-6.3 [facility] Comment on above: Order Comment: No: D o not add to previous draw Performed By: #### 8 [id number] #### [facility] [address] [facility] [place] [address], [facility] IMMATURE GRANS 1.1 % High 0.0-1.0 [facility] Comment on above: Order Comment: No: D o not add to previous draw Performed By: #### 8 [id number] #### [facility] [address] [place] [address], [facility] Lymphocytes (Bld) [#/Vol] 0.8 10*3/uL Low 1.2-4.0 [facility] Comment on above: Order Comment: No: D o not add to previous draw Performed By: #### 8 [id number] #### [facility] [address] [place] [address], [facility] Lymphocytes/100 WBC (Bld) 9.3 % Low 20.0-45.0 [facility] Comment on above: Order Comment: No: D o not add to previous draw Performed By: #### 8 [id number] #### [facility] [address] [facility] [place] [address], [facility] MCH (RBC) [Entitic mass] 27.4 pg Normal 27.0-33.0 [facility] Comment on above: Order Comment: No: D o not add to previous draw Performed By: #### 8 [id number] #### [facility] [address] [place] [address], [facility] MCHC (RBC) [Mass/Vol] 28.9 g/dL Low 32.0-35.0 [facility] Comment on above: Order Comment: No: D o not add to previous draw Performed By: #### 8 [id number] #### [facility] [address] [facility] [place] [address], [facility] MCV (RBC) [Entitic vol] 94.9 fL Normal 82.0-98.0 [facility] Comment on above: Order Comment: No: D o not add to previous draw Performed By: #### 8 [id number] #### [facility] [address] [place] [place] [address], [facility] Monocytes (Bld) [#/Vol] 1.1 10*3/uL High 0.1-1.0 [facility] Comment on above: Order Comment: No: D o not add to previous draw Performed By: #### 8 [id number] #### [facility] [address] [facility]. [place] [id number], [facility] MONOS 12.9 % High 5.0-12.0 [facility] Comment on above: Order Comment: No: D o not add to previous draw Performed By: #### 8 [id number] #### [facility] [address] [place] [id number], [facility] Neutrophils/100 WBC (Bld) 70.6 % Normal 40.0-72.0 [facility] Comment on above: Order Comment: No: D o not add to previous draw Performed By: #### 8 [id number] #### [facility] [address] [place] [address], [place] Nucleated RBC/100 WBC (Bld) [Ratio] 0 % Normal 0-0 [facility] Comment on above: Order Comment: No: D o not add to previous draw Performed By: #### 8 [id number] #### [facility] [address] [place] [address], [place] PLAT ESTIMATE Normal Normal [facility] Comment on above: Order Comment: No: D o not add to previous draw Result Comment: EDTA smear shows platelet clumping, see platelet estimate Performed By: #### 8 [id number] #### [facility] [address] [place] [address], [place] RBC (Bld) [#/Vol] 3.76 10*6/uL Low 4.20-5.70 [facility] Comment on above: Order Comment: No: D o not add to previous draw Performed By: #### 8 [id number] #### [facility] [address] [place] [address], [place] WBC (Bld) [#/Vol] 8.30 10*3/uL Normal 4.00-10.60 [facility] Comment on above: Order Comment: No: D o not add to previous draw Performed By: #### 8 [id number] #### [facility] [address] [place] [address], [place] POC GLUCOSE LABon 07-20-2020 Glucose [Mass/Vol] 110 mg/dL High 70-100 [facility] Comment on above: Performed By: #### 5 0103 #### [facility] [address] [place] [address], [place] Glucose [Mass/Vol] 124 mg/dL High 70-100 [facility] Comment on above: Performed By: #### 5 0103 #### [address] [place] [address], [facility] Glucose [Mass/Vol] 111 mg/dL High 70-100 [facility] Comment on above: Performed By: #### 5 7307, [id number] #### [facility] [address] [place] [address], [facility] PORTABLE CHEST 1 VIEWon 06-28 PORTABLE CHEST 1 VIEW [facility] Department of Radiology [address] [place] [id number] Patient Name: RASHARD LYMAN : 1960 Sex: M Age: Race: White Pt. Location: [id number] Patient Status: I Ordered Date: 07/20/2020 6:00:00 [...] unchanged Electronically signed: Manuel Saldaña. Transcribed by: [email or web address], User Resident: Electronically Signed by: MANUEL SALDAÑA @ 07/20/2020 09:07 AM Normal [facility] Comment on above: Order Comment: Evalu ate for Effusion BASIC METABOLIC PANELon - Calcium [Mass/Vol] 8.4 mg/dL Low 8.6-10.3 [facility] Comment on above: Order Comment: No: D o not add to previous draw Performed By: #### 3 1943 #### [facility] [address] [place] [address], [facility] Chloride [Moles/Vol] 104 mmol/L Normal 98-107 [facility] Comment on above: Order Comment: No: D o not add to previous draw Performed By: #### 3 1943 #### [facility] [address] [place] [address], [place] CO2 [Moles/Vol] 24 mmol/L Normal 21-31 [facility] Comment on above: Order Comment: No: D o not add to previous draw Performed By: #### 3 1943 #### [facility] [address] [place] [address], [place] Creatinine [Mass/Vol] 4.15 mg/dL High 0.70-1.30 [facility] Comment on above: Order Comment: No: D o not add to previous draw Performed By: #### 3 1943 #### [facility] [address] [place] [address], [place] eGFR- 18 ml/min/1.73sq m Abnormal >60 [facility] Comment on above: Order Comment: No: D o not add to previous draw Performed By: #### 3 1943 #### [facility] [address] [place] [address], [facility] eGFR- non- 15 ml/min/1.73sq m Abnormal >60 [facility] Comment on above: Order Comment: No: D o not add to previous draw Performed By: #### 3 1943 #### [facility] [address] [place] [address], [place] Glucose [Mass/Vol] 180 mg/dL High 70-100 [facility] Comment on above: Order Comment: No: D o not add to previous draw Performed By: #### 3 1943 #### [facility] [address] [place] [address], [place] Potassium [Moles/Vol] 4.4 mmol/L Normal 3.5-5.1 [facility] Comment on above: Order Comment: No: D o not add to previous draw Performed By: #### 3 1943 #### [facility] [address] [place] [address], [place] Sodium [Moles/Vol] 135 mmol/L Low 136-145 [facility] Comment on above: Order Comment: No: D o not add to previous draw Performed By: #### 3 1943 #### [facility] [address] [place] [address], [place] Urea nitrogen [Mass/Vol] 37 mg/dL High 7-25 [facility] Comment on above: Order Comment: No: D o not add to previous draw Performed By: #### 3 1943 #### [facility] [address] [place] [address], [place] CBC COMPLETE BLOOD COUNTon 0 - Erythrocyte distribution width (RBC) [Ratio] 14.8 % Normal 11.5-15.0 [facility] Comment on above: Order Comment: No: D o not add to previous draw Performed By: #### 8 [id number] #### [facility] [address] [place] [address], [facility] Hematocrit (Bld) [Volume fraction] 30.9 % Low 39.0-50.0 [facility] Comment on above: Order Comment: No: D o not add to previous draw Performed By: #### 8 [id number] #### [facility] [address] [place] [address], [facility] Hemoglobin (Bld) [Mass/Vol] 9.0 g/dL Low 13.0-17.0 [facility] Comment on above: Order Comment: No: D o not add to previous draw Performed By: #### 8 5499 #### [facility] [address] [facility] [address], [facility] MCH (RBC) [Entitic mass] 26.6 pg Low 27.0-33.0 [facility] Comment on above: Order Comment: No: D o not add to previous draw Performed By: #### 8 [id number] #### [facility] [address] [place] [address], [facility] MCHC (RBC) [Mass/Vol] 29.1 g/dL Low 32.0-35.0 [facility] Comment on above: Order Comment: No: D o not add to previous draw Performed By: #### 8 [id number] #### [facility] [address] [place] [address], [facility] MCV (RBC) [Entitic vol] 91.4 fL Normal 82.0-98.0 [facility] Comment on above: Order Comment: No: D o not add to previous draw Performed By: #### 8 [id number] #### [facility] [address] [facility] [place] [id number], [facility] Nucleated RBC/100 WBC (Bld) [Ratio] 0 % Normal 0-0 [facility] Comment on above: Order Comment: No: D o not add to previous draw Performed By: #### 8 [id number] #### [facility] [address] PLAT CNT 279 10*3/uL Normal 150-400 [facility] Comment on above: Order Comment: No: D o not add to previous draw Performed By: #### 8 [id number] #### [facility] [address] RBC (Bld) [#/Vol] 3.38 10*6/uL Low 4.20-5.70 [facility] Comment on above: Order Comment: No: D o not add to previous draw Performed By: #### 8 [id number] #### [facility] [address] WBC (Bld) [#/Vol] 6.73 10*3/uL Normal 4.00-10.60 [facility] Comment on above: Order Comment: No: D o not add to previous draw Performed By: #### 8 5499 #### [facility] [address] Operative Reporton Operative Report MR#: [id number] I [facility] Pt. Name: [facility] Room #: [id number] Discharge Date: Birthdate: 1960 OPERATIVE REPORT DATE OF SURGERY: 07/19/2020 SURGEON: Nima Wynne MD Operative Note Medical Thoracoscopy, lysis of adhesions, pleural biopsy Procedure Date: 07/19/2020 Procedure: Medical Thoracoscopy, pleural biopsies, lysis of adhesions, and chest tube placement Preoperative Diagnosis: Loculated pleural effusion Post-operative Diagnosis: same Surgeons: Nima Wynne MD Coating Manager: Davis Pham MD Type of Anesthesia: MAC [...] Wynne MD Date Trans: 07/19/2020 02:43 P/ [id number] cc: Jose Juarez D.O. [address] [place] [id number] Normal [facility] POC GLUCOSE LABon 07-19-2020 Glucose [Mass/Vol] 219 mg/dL High 70-100 [facility] Comment on above: Performed By: #### 5 7307, 77146 #### [facility] [address] [place] [place] [address], [facility] Glucose [Mass/Vol] 152 mg/dL High 70-100 [facility] Comment on above: Performed By: #### 5 7307, 60824 #### [facility] [address] [place] [place] [address], [facility] Glucose [Mass/Vol] 183 mg/dL High 70-100 [facility] Comment on above: Performed By: #### 5 0103 #### [facility] [address] [place] [place] [address], [facility] Glucose [Mass/Vol] 206 mg/dL High 70-100 [facility] Comment on above: Performed By: #### 8 [id number] ####[facility] [place] [address], [facility] Glucose [Mass/Vol] 179 mg/dL High 70-100 [facility] Comment on above: Performed By: #### 5 0103 #### [facility] [address] [place] [address], [facility] PORTABLE CHEST 1 VIEWon 06-28 PORTABLE CHEST 1 VIEW [facility] Department of Radiology [address] [place] [id number] Patient Name: RASHARD LYMAN : 1960 Sex: M Age: Race: White Pt. Location: [address] [place] [address] Patient Status: I Ordered Date: 07/19/2020 2:20:00 [...] infiltration Electronically signed: Pedro Baldwin. Transcribed by: [email or web address], User Resident: PEDRO BALDWIN Electronically Signed by: PEDRO BALDWIN @ 07/19/2020 03:03 PM I personally read this/these film(s) with this resident Normal [facility] Comment on above: Order Comment: Check Chest Tube Position BASIC METABOLIC PANELon 06-28 Calcium [Mass/Vol] 8.4 mg/dL Low 8.6-10.3 [facility] Comment on above: Order Comment: No: D o not add to previous draw Performed By: #### 8 [id number] #### [facility] [address] [place] [address], [facility] Chloride [Moles/Vol] 105 mmol/L Normal 98-107 [facility] Comment on above: Order Comment: No: D o not add to previous draw Performed By: #### 8 [id number] #### [facility] [address] [place] [address], [place] CO2 [Moles/Vol] 25 mmol/L Normal 21-31 [facility] Comment on above: Order Comment: No: D o not add to previous draw Performed By: #### 8 [id number] #### [facility] [address] [place] [address], [place] Creatinine [Mass/Vol] 4.54 mg/dL High 0.70-1.30 [facility] Comment on above: Order Comment: No: D o not add to previous draw Performed By: #### 8 [id number] #### [facility] [address] [place] [address], [facility] eGFR- 16 ml/min/1.73sq m Abnormal >60 [facility] Comment on above: Order Comment: No: D o not add to previous draw Performed By: #### 8 [id number] #### [facility] [address] [place] [address], [facility] eGFR- non- 13 ml/min/1.73sq m Abnormal >60 [facility] Comment on above: Order Comment: No: D o not add to previous draw Performed By: #### 8 5499 #### [facility] [address] [place] [address], [place] Glucose [Mass/Vol] 118 mg/dL High 70-100 [facility] Comment on above: Order Comment: No: D o not add to previous draw Performed By: #### 8 [id number] #### [facility] [address] [place] [address], [place] Potassium [Moles/Vol] 4.5 mmol/L Normal 3.5-5.1 [facility] Comment on above: Order Comment: No: D o not add to previous draw Performed By: #### 8 [id number] #### [facility] [address] [place] [address], [place] Sodium [Moles/Vol] 137 mmol/L Normal 136-145 [facility] Comment on above: Order Comment: No: D o not add to previous draw Performed By: #### 8 [id number] #### [facility] [address] Urea nitrogen [Mass/Vol] 40 mg/dL High 7-25 [facility] Comment on above: Order Comment: No: D o not add to previous draw Performed By: #### 8 5499 #### [facility] [address] CBC W/DIFFon 07-18-2020 ABS IMM GRANS 0.1 10*3/uL Normal 0.0-0.2 [facility] Comment on above: Order Comment: No: D o not add to previous draw Performed By: #### 8 [id number] #### [facility] [address] ABS NEUTROPHILS 5.0 10*3/uL Normal 1.6-7.6 [facility] Comment on above: Order Comment: No: D o not add to previous draw Performed By: #### 8 [id number] #### [facility] [address] [place] [address], [facility] Basophils (Bld) [#/Vol] 0.0 10*3/uL Normal 0.0-0.2 [facility] Comment on above: Order Comment: No: D o not add to previous draw Performed By: #### 8 [id number] #### [facility] [address] [place] [address], [facility] Basophils/100 WBC (Bld) 0.4 % Normal 0.0-1.0 [facility] Comment on above: Order Comment: No: D o not add to previous draw Performed By: #### 8 [id number] #### [facility] [address] [place] [address], [facility] Eosinophils (Bld) [#/Vol] 0.6 10*3/uL High 0.0-0.5 [facility] Comment on above: Order Comment: No: D o not add to previous draw Performed By: #### 8 [id number] #### [facility] [address] [place] [address], [facility] Eosinophils/100 WBC (Bld) 6.8 % High 0.0-6.0 [facility] Comment on above: Order Comment: No: D o not add to previous draw Performed By: #### 8 [id number] #### [facility] [address] [place] [address], [facility] Erythrocyte distribution width (RBC) [Ratio] 14.8 % Normal 11.5-15.0 [facility] Comment on above: Order Comment: No: D o not add to previous draw Performed By: #### 8 [id number] #### [facility] [address] [place] [address], [facility] Hematocrit (Bld) [Volume fraction] 31.9 % Low 39.0-50.0 [facility] Comment on above: Order Comment: No: D o not add to previous draw Performed By: #### 8 [id number] #### [facility] [address] [place] [address], [facility] Hemoglobin (Bld) [Mass/Vol] 9.4 g/dL Low 13.0-17.0 [facility] Comment on above: Order Comment: No: D o not add to previous draw Performed By: #### 8 [id number] #### [facility] [address] [place] [id number], [facility] IMMATURE GRANS 1.7 % High 0.0-1.0 [facility] Comment on above: Order Comment: No: D o not add to previous draw Performed By: #### 8 [id number] #### [facility] [address] [place] [address], [facility] Lymphocytes (Bld) [#/Vol] 1.2 10*3/uL Normal 1.2-4.0 [facility] Comment on above: Order Comment: No: D o not add to previous draw Performed By: #### 8 [id number] #### [facility] [address] [facility] [place] [address], [facility] Lymphocytes/100 WBC (Bld) 14.8 % Low 20.0-45.0 [facility] Comment on above: Order Comment: No: D o not add to previous draw Performed By: #### 8 [id number] #### [facility] [address] [facility] [place] [address], [facility] MCH (RBC) [Entitic mass] 26.9 pg Low 27.0-33.0 [facility] Comment on above: Order Comment: No: D o not add to previous draw Performed By: #### 8 [id number] #### [facility] [address] [facility] [place] [address], [facility] MCHC (RBC) [Mass/Vol] 29.5 g/dL Low 32.0-35.0 [facility] Comment on above: Order Comment: No: D o not add to previous draw Performed By: #### 8 [id number] #### [facility] [address] [facility] [place] [id number], [facility] MCV (RBC) [Entitic vol] 91.1 fL Normal 82.0-98.0 [facility] Comment on above: Order Comment: No: D o not add to previous draw Performed By: #### 8 [id number] #### [facility] [address] [facility]. [place] [id number], [facility] Monocytes (Bld) [#/Vol] 1.1 10*3/uL High 0.1-1.0 [facility] Comment on above: Order Comment: No: D o not add to previous draw Performed By: #### 8 [id number] #### [facility] [address] [place] [address], [facility] MONOS 13.4 % High 5.0-12.0 [facility] Comment on above: Order Comment: No: D o not add to previous draw Performed By: #### 8 [id number] #### [facility] [address] [place] [address], [facility] Neutrophils/100 WBC (Bld) 62.9 % Normal 40.0-72.0 [facility] Comment on above: Order Comment: No: D o not add to previous draw Performed By: #### 8 [id number] #### [facility] [address] [place] [address], [facility] Nucleated RBC/100 WBC (Bld) [Ratio] 0 % Normal 0-0 [facility] Comment on above: Order Comment: No: D o not add to previous draw Performed By: #### 8 [id number] #### [facility] [address] [place] [address], [place] PLAT CNT 296 10*3/uL Normal 150-400 [facility] Comment on above: Order Comment: No: D o not add to previous draw Performed By: #### 8 [id number] #### [facility] [address] [place] [address], [facility] RBC (Bld) [#/Vol] 3.50 10*6/uL Low 4.20-5.70 [facility] Comment on above: Order Comment: No: D o not add to previous draw Performed By: #### 8 [id number] #### [facility] [address] [place] [address], [place] WBC (Bld) [#/Vol] 8.03 10*3/uL Normal 4.00-10.60 [facility] Comment on above: Order Comment: No: D o not add to previous draw Performed By: #### 8 [id number] #### [facility] [address] [place] [address], [place] POC GLUCOSE LABon 07-18-2020 Glucose [Mass/Vol] 192 mg/dL High 70-100 [facility] Comment on above: Performed By: #### 5 [id number], 73219 #### [facility] [address] [place] [address], [place] Glucose [Mass/Vol] 153 mg/dL High 70-100 [facility] Comment on above: Performed By: #### 5 [id number], 54806 #### [facility] [address] [place] [address], [place] Glucose [Mass/Vol] 80 mg/dL Normal 70-100 [facility] Comment on above: Performed By: #### 5 7307, 72886 #### [facility] [address] [place] [address], [place] Glucose [Mass/Vol] 48 mg/dL Critically low 70-100 [facility] Comment on above: Order Comment: Left Peural Effusion Performed By: #### 8 [id number] ####[facility] [place] [address], [place] Glucose [Mass/Vol] 120 mg/dL High 70-100 [facility] Comment on above: Performed By: #### 5 0103 #### [facility] [address] [place] [address], [place] Glucose [Mass/Vol] 112 mg/dL High 70-100 [facility] Comment on above: Performed By: #### 5 [id number], [id number] #### [facility] [address] [place] [address], [place] P[place] SARS COV2 ANTIGEN NEGATI VEon 07-18-2020 POC SARS COV2 ANTIGEN NEG CANCELED Normal NEGATIVE [facility] Comment on above: Result Comment: The released value NEGATIVE was canceled by [email or web address] on 07/19/2020 07:11 Performed By: #### 3 1944 #### [facility] [address] [place] [address], [place] POC SARS COV2 ANTIGEN NEG Negative Normal NEGATIVE [facility] Comment on above: Result Comment: Nega tive [...] signs and symptoms consistent with COVID-19. [employer] COVID-19 Antigen test is a lateral flow [...] Accreditation. Performed By: #### 8 [id number] #### [facility] [address] [facility] [place] [address], [facility] BASIC METABOLIC PANELon 03-2 Calcium [Mass/Vol] 8.2 mg/dL Low 8.6-10.3 [facility] Comment on above: Order Comment: No: D o not add to previous draw Performed By: #### 3 1943 #### [facility] [address] [facility] [place] [address], [facility] Chloride [Moles/Vol] 101 mmol/L Normal 98-107 [facility] Comment on above: Order Comment: No: D o not add to previous draw Performed By: #### 3 1943 #### [facility] [address] [facility] [address], [facility] CO2 [Moles/Vol] 25 mmol/L Normal 21-31 [facility] Comment on above: Order Comment: No: D o not add to previous draw Performed By: #### 3 1943 #### [facility] [address] [place] [address], [place] Creatinine [Mass/Vol] 3.64 mg/dL High 0.70-1.30 [facility] Comment on above: Order Comment: No: D o not add to previous draw Performed By: #### 3 1943 #### [facility] [address] [place] [address], [place] eGFR- 21 ml/min/1.73sq m Abnormal >60 [facility] Comment on above: Order Comment: No: D o not add to previous draw Performed By: #### 3 1943 #### [facility] [address] [place] [address], [place] eGFR- non- 17 ml/min/1.73sq m Abnormal >60 [facility] Comment on above: Order Comment: No: D o not add to previous draw Performed By: #### 3 1943 #### [facility] [address] [place] [address], [place] Glucose [Mass/Vol] 124 mg/dL High 70-100 [facility] Comment on above: Order Comment: No: D o not add to previous draw Performed By: #### 3 1943 #### [facility] [address] [place] [address], [place] Potassium [Moles/Vol] 4.3 mmol/L Normal 3.5-5.1 [facility] Comment on above: Order Comment: No: D o not add to previous draw Performed By: #### 3 1943 #### [facility] [address] [place] [address], [place] Sodium [Moles/Vol] 134 mmol/L Low 136-145 [facility] Comment on above: Order Comment: No: D o not add to previous draw Performed By: #### 3 1943 #### [facility] [address] [place] [address], [place] Urea nitrogen [Mass/Vol] 36 mg/dL High 7-25 [facility] Comment on above: Order Comment: No: D o not add to previous draw Performed By: #### 3 1944 #### [facility] [address] [place] [place] [address], [facility] CBC W/DIFFon 07-17-2020 ABS IMM GRANS 0.2 10*3/uL Normal 0.0-0.2 [facility] Comment on above: Order Comment: No: D o not add to previous draw Performed By: #### 8 [id number] #### [facility] [address] [place] [place] [address], [facility] ABS NEUTROPHILS 5.8 10*3/uL Normal 1.6-7.6 [facility] Comment on above: Order Comment: No: D o not add to previous draw Performed By: #### 8 [id number] #### [facility] [address] [facility] [place] [address], [facility] Basophils (Bld) [#/Vol] 0.1 10*3/uL Normal 0.0-0.2 [facility] Comment on above: Order Comment: No: D o not add to previous draw Performed By: #### 8 [id number] #### [facility] [address] [facility] [place] [address], [facility] Basophils/100 WBC (Bld) 0.6 % Normal 0.0-1.0 [facility] Comment on above: Order Comment: No: D o not add to previous draw Performed By: #### 8 [id number] #### [facility] [address] [facility] [place] [id number], [facility] Eosinophils (Bld) [#/Vol] 0.6 10*3/uL High 0.0-0.5 [facility] Comment on above: Order Comment: No: D o not add to previous draw Performed By: #### 8 [id number] #### [facility] [address] [place] [id number], [facility] Eosinophils/100 WBC (Bld) 7.0 % High 0.0-6.0 [facility] Comment on above: Order Comment: No: D o not add to previous draw Performed By: #### 8 [id number] #### [facility] [address] [place] [address], [facility] Erythrocyte distribution width (RBC) [Ratio] 14.8 % Normal 11.5-15.0 [facility] Comment on above: Order Comment: No: D o not add to previous draw Performed By: #### 8 [id number] #### [facility] [address] [place] [address], [facility] Hematocrit (Bld) [Volume fraction] 30.0 % Low 39.0-50.0 [facility] Comment on above: Order Comment: No: D o not add to previous draw Performed By: #### 8 [id number] #### [facility] [address] [place] [id number], [facility] Hemoglobin (Bld) [Mass/Vol] 9.2 g/dL Low 13.0-17.0 [facility] Comment on above: Order Comment: No: D o not add to previous draw Performed By: #### 8 [id number] #### [facility] [address] [place] [address], [facility] IMMATURE GRANS 1.7 % High 0.0-1.0 [facility] Comment on above: Order Comment: No: D o not add to previous draw Performed By: #### 8 [id number] #### [facility] [address] [place] [id number], [facility] Lymphocytes (Bld) [#/Vol] 1.3 10*3/uL Normal 1.2-4.0 [facility] Comment on above: Order Comment: No: D o not add to previous draw Performed By: #### 8 [id number] #### [facility] [address] [place] [id number], [facility] Lymphocytes/100 WBC (Bld) 14.3 % Low 20.0-45.0 [facility] Comment on above: Order Comment: No: D o not add to previous draw Performed By: #### 8 [id number] #### [facility] [address] [place] [address], [facility] MCH (RBC) [Entitic mass] 27.3 pg Normal 27.0-33.0 [facility] Comment on above: Order Comment: No: D o not add to previous draw Performed By: #### 8 [id number] #### [facility] [address] [place] [address], [facility] MCHC (RBC) [Mass/Vol] 30.7 g/dL Low 32.0-35.0 [facility] Comment on above: Order Comment: No: D o not add to previous draw Performed By: #### 8 [id number] #### [facility] [address] [facility] [place] [address], [facility] MCV (RBC) [Entitic vol] 89.0 fL Normal 82.0-98.0 [facility] Comment on above: Order Comment: No: D o not add to previous draw Performed By: #### 8 [id number] #### [facility] [address] [facility] [place] [address], [facility] Monocytes (Bld) [#/Vol] 1.0 10*3/uL Normal 0.1-1.0 [facility] Comment on above: Order Comment: No: D o not add to previous draw Performed By: #### 8 [id number] #### [facility] [address] [facility] [place] [id number], [facility] MONOS 10.9 % Normal 5.0-12.0 [facility] Comment on above: Order Comment: No: D o not add to previous draw Performed By: #### 8 [id number] #### [facility] [address] [place] [address], [facility] Neutrophils/100 WBC (Bld) 65.5 % Normal 40.0-72.0 [facility] Comment on above: Order Comment: No: D o not add to previous draw Performed By: #### 8 [id number] #### [facility] [address] [place] [address], [facility] Nucleated RBC/100 WBC (Bld) [Ratio] 0 % Normal 0-0 [facility] Comment on above: Order Comment: No: D o not add to previous draw Performed By: #### 8 [id number] #### [facility] [address] [place] [address], [place] PLAT CNT 293 10*3/uL Normal 150-400 [facility] Comment on above: Order Comment: No: D o not add to previous draw Performed By: #### 8 [id number] #### [facility] [address] [place] [address], [facility] RBC (Bld) [#/Vol] 3.37 10*6/uL Low 4.20-5.70 [facility] Comment on above: Order Comment: No: D o not add to previous draw Performed By: #### 8 [id number] #### [facility] [address] [facility] [place] [address], [place] WBC (Bld) [#/Vol] 8.86 10*3/uL Normal 4.00-10.60 [facility] Comment on above: Order Comment: No: D o not add to previous draw Performed By: #### 8 [id number] #### [facility] [address] [place] [address], [facility] POC GLUCOSE LABon 07-17-2020 Glucose [Mass/Vol] 101 mg/dL High 70-100 [facility] Comment on above: Performed By: #### 5 7307, 15852 #### [facility] [address] [place] [address], [place] Glucose [Mass/Vol] 76 mg/dL Normal 70-100 [facility] Comment on above: Performed By: #### 5 7307, 48618 #### [facility] [address] [place] [address], [place] Glucose [Mass/Vol] 75 mg/dL Normal 70-100 [facility] Comment on above: Performed By: #### 8 [id number] ####[facility] [place] [address], [place] Glucose [Mass/Vol] 198 mg/dL High 70-100 [facility] Comment on above: Performed By: #### 8 [id number] ####[facility] [place] [address], [place] Glucose [Mass/Vol] 205 mg/dL High 70-100 [facility] Comment on above: Performed By: #### 3 0318 #### [facility] [address] [place] [address], [place] Glucose [Mass/Vol] 187 mg/dL High 70-100 [facility] Comment on above: Performed By: #### 5 7307, 85277 #### [facility] [address] [place] [address], [place] Glucose [Mass/Vol] 131 mg/dL High 70-100 [facility] Comment on above: Performed By: #### 8 [id number] #### [facility] [address] [place] [address], [place] Glucose [Mass/Vol] 75 mg/dL Normal 70-100 [facility] Comment on above: Performed By: #### 5 0103 #### [facility] [address] [place] [address], [place] Glucose [Mass/Vol] 69 mg/dL Low 70-100 [facility] Comment on above: Performed By: #### 8 [id number] ####[facility] [place] [address], [place] BASIC METABOLIC PANELon 03-2 0-2020 Calcium [Mass/Vol] 8.4 mg/dL Low 8.6-10.3 [facility] Comment on above: Order Comment: No: D o not add to previous draw Performed By: #### 3 1943 #### [facility] [address] [place] [address], [place] Chloride [Moles/Vol] 105 mmol/L Normal 98-107 [facility] Comment on above: Order Comment: No: D o not add to previous draw Performed By: #### 3 1943 #### [facility] [address] [place] [address], [place] CO2 [Moles/Vol] 24 mmol/L Normal 21-31 [facility] Comment on above: Order Comment: No: D o not add to previous draw Performed By: #### 3 1943 #### [facility] [address] [place] [address], [place] Creatinine [Mass/Vol] 4.14 mg/dL High 0.70-1.30 [facility] Comment on above: Order Comment: No: D o not add to previous draw Performed By: #### 3 1943 #### [facility] [address] [place] [address], [facility] eGFR- 18 ml/min/1.73sq m Abnormal >60 [facility] Comment on above: Order Comment: No: D o not add to previous draw Performed By: #### 3 1943 #### [facility] [address] [place] [address], [place] eGFR- non- 15 ml/min/1.73sq m Abnormal >60 [facility] Comment on above: Order Comment: No: D o not add to previous draw Performed By: #### 3 1943 #### [facility] [address] [place] [address], [place] Glucose [Mass/Vol] 127 mg/dL High 70-100 [facility] Comment on above: Order Comment: No: D o not add to previous draw Performed By: #### 3 1943 #### [facility] [address] [place] [address], [facility] Potassium [Moles/Vol] 4.0 mmol/L Normal 3.5-5.1 [facility] Comment on above: Order Comment: No: D o not add to previous draw Performed By: #### 3 1943 #### [facility] [address] [place] [address], [place] Sodium [Moles/Vol] 136 mmol/L Normal 136-145 [facility] Comment on above: Order Comment: No: D o not add to previous draw Performed By: #### 3 1943 #### [facility] [address] [place] [address], [place] Urea nitrogen [Mass/Vol] 35 mg/dL High 7-25 [facility] Comment on above: Order Comment: No: D o not add to previous draw Performed By: #### 3 1943 #### [facility] [address] [place] [address], [facility] CBC COMPLETE BLOOD COUNTon 0 - Erythrocyte distribution width (RBC) [Ratio] 14.6 % Normal 11.5-15.0 [facility] Comment on above: Order Comment: No: D o not add to previous draw Performed By: #### 8 [id number] #### [facility] [address] [place] [address], [facility] Hematocrit (Bld) [Volume fraction] 31.8 % Low 39.0-50.0 [facility] Comment on above: Order Comment: No: D o not add to previous draw Performed By: #### 8 [id number] #### [facility] [address] [place] [address], [facility] Hemoglobin (Bld) [Mass/Vol] 9.7 g/dL Low 13.0-17.0 [facility] Comment on above: Order Comment: No: D o not add to previous draw Performed By: #### 8 [id number] #### [facility] [address] [place] [address], [facility] MCH (RBC) [Entitic mass] 27.2 pg Normal 27.0-33.0 [facility] Comment on above: Order Comment: No: D o not add to previous draw Performed By: #### 8 [id number] #### [facility] [address] [facility] [place] [id number], [facility] MCHC (RBC) [Mass/Vol] 30.5 g/dL Low 32.0-35.0 [facility] Comment on above: Order Comment: No: D o not add to previous draw Performed By: #### 8 [id number] #### [facility] [address] [facility] [place] [address], [facility] MCV (RBC) [Entitic vol] 89.3 fL Normal 82.0-98.0 [facility] Comment on above: Order Comment: No: D o not add to previous draw Performed By: #### 8 [id number] #### [facility] [address] [place] [place] [address], [facility] Nucleated RBC/100 WBC (Bld) [Ratio] 0 % Normal 0-0 [facility] Comment on above: Order Comment: No: D o not add to previous draw Performed By: #### 8 [id number] #### [facility] [address] [facility] [place] [address], [facility] PLAT CNT 321 10*3/uL Normal 150-400 [facility] Comment on above: Order Comment: No: D o not add to previous draw Performed By: #### 8 [id number] #### [facility] [address] [place] [place] [address], [facility] RBC (Bld) [#/Vol] 3.56 10*6/uL Low 4.20-5.70 [facility] Comment on above: Order Comment: No: D o not add to previous draw Performed By: #### 8 [id number] #### [facility] [address] [place] [address], [place] WBC (Bld) [#/Vol] 8.88 10*3/uL Normal 4.00-10.60 [facility] Comment on above: Order Comment: No: D o not add to previous draw Performed By: #### 8 [id number] #### [facility] [address] [place] [address], [place] POC GLUCOSE LABon 07-16-2020 Glucose [Mass/Vol] 94 mg/dL Normal 70-100 [facility] Comment on above: Performed By: #### 5 0103 #### [facility] [address] [place] [address], [place] Glucose [Mass/Vol] 62 mg/dL Low 70-100 [facility] Comment on above: Performed By: #### 5 7307, 48893 #### [facility] [address] [place] [address], [place] Glucose [Mass/Vol] 80 mg/dL Normal 70-100 [facility] Comment on above: Performed By: #### 5 7307, 30541 #### [facility] [address] [place] [address], [place] Glucose [Mass/Vol] 99 mg/dL Normal 70-100 [facility] Comment on above: Performed By: #### 8 [id number] ####[facility] [place] [address], [place] Glucose [Mass/Vol] 203 mg/dL High 70-100 [facility] Comment on above: Performed By: #### 8 [id number] ####[facility] [place] [address], [place] Glucose [Mass/Vol] 151 mg/dL High 70-100 [facility] Comment on above: Performed By: #### 5 7307, 31368 #### [facility] [address] [place] [address], [place] ANAon 07-15-2020 KILLIAN SCREEN <1:40 Normal <1:40,1:40 [facility] Comment on above: Order Comment: No: D o not add to previous draw Performed By: #### 8 [id number] #### [facility] [address] [place] [address], [facility] ANCA IGG WITH REFLEX [id number] on 07-15-2020 ANCA <1:20 Normal <1:20 [facility] Comment on above: Order Comment: No: D [...] collagen vascular disease or arthritis. Performed By: [employer] [address] [place] [id number] Ball Points Inspector: Emi Campbell MD BASIC METABOLIC PANELon 06-27 Calcium [Mass/Vol] 8.5 mg/dL Low 8.6-10.3 [facility] Comment on above: Order Comment: No: D o not add to previous draw Performed By: #### 8 [id number] #### [facility] [address] [place] [address], [place] Chloride [Moles/Vol] 103 mmol/L Normal 98-107 [facility] Comment on above: Order Comment: No: D o not add to previous draw Performed By: #### 8 [id number] #### [facility] [address] [place] [address], [place] CO2 [Moles/Vol] 23 mmol/L Normal 21-31 [facility] Comment on above: Order Comment: No: D o not add to previous draw Performed By: #### 8 [id number] #### [facility] [address] [place] [address], [place] Creatinine [Mass/Vol] 4.38 mg/dL High 0.70-1.30 [facility] Comment on above: Order Comment: No: D o not add to previous draw Performed By: #### 8 [id number] #### [facility] [address] [place] [address], [place] eGFR- 17 ml/min/1.73sq m Abnormal >60 [facility] Comment on above: Order Comment: No: D o not add to previous draw Performed By: #### 8 [id number] #### [facility] [address] [place] [address], [place] eGFR- non- 14 ml/min/1.73sq m Abnormal >60 [facility] Comment on above: Order Comment: No: D o not add to previous draw Performed By: #### 8 [id number] #### [facility] [address] [place] [address], [place] Glucose [Mass/Vol] 154 mg/dL High 70-100 [facility] Comment on above: Order Comment: No: D o not add to previous draw Performed By: #### 8 [id number] #### [facility] [address] [place] [address], [place] Potassium [Moles/Vol] 4.5 mmol/L Normal 3.5-5.1 [facility] Comment on above: Order Comment: No: D o not add to previous draw Performed By: #### 8 [id number] #### [facility] [address] [place] [address], [place] Sodium [Moles/Vol] 135 mmol/L Low 136-145 [facility] Comment on above: Order Comment: No: D o not add to previous draw Performed By: #### 8 [id number] #### [facility] [address] [place] [address], [place] Urea nitrogen [Mass/Vol] 32 mg/dL High 7-25 [facility] Comment on above: Order Comment: No: D o not add to previous draw Performed By: #### 8 [id number] #### [facility] [address] [facility] [address] C REACTIVE PROTEINon 021 CRP [Mass/Vol] 138.0 mg/L High 0.0-7.0 [facility] Comment on above: Order Comment: FROM [id number] Performed By: #### 8 [id number] #### [facility] [address] [place] [place] [address], [facility] CBC W/DIFFon 07-15-2020 ABS IMM GRANS 0.1 10*3/uL Normal 0.0-0.2 [facility] Comment on above: Performed By: #### 5 0103 #### [facility] [address] [facility] [place] [address], [facility] ABS NEUTROPHILS 7.3 10*3/uL Normal 1.6-7.6 [facility] Comment on above: Performed By: #### 5 0103 #### [facility] [address] [place] [place] [address], [facility] Basophils (Bld) [#/Vol] 0.0 10*3/uL Normal 0.0-0.2 [facility] Comment on above: Performed By: #### 5 0103 #### [facility] [address] [facility] [place] [address], [facility] Basophils/100 WBC (Bld) 0.3 % Normal 0.0-1.0 [facility] Comment on above: Performed By: #### 5 0103 #### [facility] [address] [facility] [place] [address], [facility] Eosinophils (Bld) [#/Vol] 0.5 10*3/uL Normal 0.0-0.5 [facility] Comment on above: Performed By: #### 5 0103 #### [facility] [address] [place] [address], [place] Eosinophils/100 WBC (Bld) 5.1 % Normal 0.0-6.0 [facility] Comment on above: Performed By: #### 5 0103 #### [facility] [address] [facility]. [address] Erythrocyte distribution width (RBC) [Ratio] 14.9 % Normal 11.5-15.0 [facility] Comment on above: Performed By: #### 5 0103 #### [facility] [address] [place] [place] [address], [facility] Hematocrit (Bld) [Volume fraction] 33.0 % Low 39.0-50.0 [facility] Comment on above: Performed By: #### 5 0103 #### [facility] [address] [facility]. [address] Hemoglobin (Bld) [Mass/Vol] 9.9 g/dL Low 13.0-17.0 [facility] Comment on above: Performed By: #### 5 0103 #### [facility] [address] [place] [place] [address], [facility] IMMATURE GRANS 1.4 % High 0.0-1.0 [facility] Comment on above: Performed By: #### 5 0103 #### [facility] [address] [facility] [place] [address], [facility] Lymphocytes (Bld) [#/Vol] 1.1 10*3/uL Low 1.2-4.0 [facility] Comment on above: Performed By: #### 5 0103 #### [facility] [address] [place] [place] [address], [facility] Lymphocytes/100 WBC (Bld) 11.0 % Low 20.0-45.0 [facility] Comment on above: Performed By: #### 5 3 #### [facility] [address] [facility] [place] [address], [facility] MCH (RBC) [Entitic mass] 27.0 pg Normal 27.0-33.0 [facility] Comment on above: Performed By: #### 102 #### [facility] [address] MCHC (RBC) [Mass/Vol] 30.0 g/dL Low 32.0-35.0 [facility] Comment on above: Performed By: #### 102 #### [facility] [address] MCV (RBC) [Entitic vol] 90.2 fL Normal 82.0-98.0 [facility] Comment on above: Performed By: #### 102 #### [facility] [address] [place] [address], [facility] Monocytes (Bld) [#/Vol] 1.1 10*3/uL High 0.1-1.0 [facility] Comment on above: Performed By: #### 102 #### [facility] [address] [place] [address], [facility] MONOS 10.9 % Normal 5.0-12.0 [facility] Comment on above: Performed By: #### 102 #### [facility] [address] Neutrophils/100 WBC (Bld) 71.3 % Normal 40.0-72.0 [facility] Comment on above: Performed By: #### 102 #### [facility] [address] [place] [address], [facility] Nucleated RBC/100 WBC (Bld) [Ratio] 0 % Normal 0-0 [facility] Comment on above: Performed By: #### 102 #### [facility] [address] [place] [address], [facility] PLAT CNT 317 10*3/uL Normal 150-400 [facility] Comment on above: Performed By: #### 3 #### [facility] [address] [place] [id number], [facility] RBC (Bld) [#/Vol] 3.66 10*6/uL Low 4.20-5.70 [facility] Comment on above: Performed By: #### 5 0103 #### [facility] [address] [place] [address], [facility] WBC (Bld) [#/Vol] 10.23 10*3/uL Normal 4.00-10.60 [facility] Comment on above: Performed By: #### 5 0103 #### [facility] [address] [facility] [place] [address], [facility] COMPLEMENT 3on 07-15-2020 COMPLEMENT 3 108 mg/dL Normal 79-152 [facility] Comment on above: Order Comment: No: D o not add to previous draw Performed By: #### 8 [id number] #### [facility] [address] [place] [id number], [facility] COMPLEMENT 4on 07-15-2020 COMPLEMENT 4 31 mg/dL Normal 16-38 [facility] Comment on above: Order Comment: No: D o not add to previous draw Performed By: #### 8 [id number] #### [facility] [address] [facility] [place] [address], [facility] GLOMR BASMT MEMBRon 07-16-19 21 GLOMR BASMT MBRN Negative Abnormal NEGATIVE [facility] Comment on above: Order Comment: No: D o not add to previous draw Result Comment: Note : The performance characteristics of this test were validated by the [facility] Immunology laboratory. It has not been cleared or approved by the U.S. Food and Drug Administration. The results are not intended to be used as the sole means for clinical diagnosis or patient management decisions. [facility] Immunology lab is authorized under CLIA to perform high-complexity testing. Performed By: #### 8 [id number] #### [facility] [address] [place] [address], [place] POC GLUCOSE LABon 07-15-2020 Glucose [Mass/Vol] 107 mg/dL High 70-100 [facility] Comment on above: Performed By: #### 5 7307, [id number] #### [facility] [address] [place] [address], [place] Glucose [Mass/Vol] 84 mg/dL Normal 70-100 [facility] Comment on above: Performed By: #### 5 0103 #### [facility] [address] [facility] [place] [address], [place] Glucose [Mass/Vol] 164 mg/dL High 70-100 [facility] Comment on above: Performed By: #### 8 [id number] ####[facility] [facility] [address], [place] Glucose [Mass/Vol] 141 mg/dL High 70-100 [facility] Comment on above: Performed By: #### 5 7307, [id number] #### [facility] [address] [facility] [place] [address], [place] PORTABLE CHEST 1 VIEWon 06-27 PORTABLE CHEST 1 VIEW [facility] Department of Radiology [address] [place] [address] [id number] Patient Name: RASHARD LYMAN : 1960 Sex: M Age: Race: White Pt. Location: [id number] Patient Status: I Ordered Date: 07/15/2020 7:00:00 [...] exam. Electronically signed: Nir Swartz. Transcribed by: [id number], User Resident: Electronically Signed by: NIR SWARTZ @ 07/15/2020 07:34 AM Normal [facility] Comment on above: Order Comment: evalu ate for Effusion *AFB CULTUREon 07-14-2020 *AFB CULTURE Clinical Report: (D) Specimen/Source: FLUID/PLEURAL FLUID Collected: 07/14/2020 13:03 Status: Final Last Updated: 08/26/2020 08:52 (1) Left Peural Effusion AFB (Final) No Acid Fast Bacilli Seen CULT RES (Final) No growth after 42 days of incubation Normal [facility] Comment on above: Order Comment: Left Peural Effusion Performed By: #### 8 [id number] #### [address] *ANAEROBIC CULTUREon 021 *ANAEROBIC CULTURE Clinical Report: (D) Specimen/Source: FLUID/PLEURAL FLUID Collected: 07/14/2020 13:03 Status: Final Last Updated: 07/19/2020 08:08 (1) Left Peural Effusion CULT RES (Final) No Anaerobes Isolated 5 Days Normal [facility] Comment on above: Order Comment: Left Peural Effusion Performed By: #### 8 [id number] #### [facility] [address] *BODY FLUID CULTUREon 2020 *BODY FLUID CULTURE Clinical Report: (D) Specimen/Source: FLUID/PLEURAL FLUID Collected: 07/14/2020 13:03 Status: Final Last Updated: 07/19/2020 07:53 (1) Left Peural Effusion GRAM (Final) Polys PRESENT No Bacteria Seen CYTOSPUN (Final) This Gram Stain was done on a cytocentrifuged specimen CULT RES (Final) No Growth Day 5 Normal [facility] Comment on above: Order Comment: Left Peural Effusion Performed By: #### 3 0318 #### [facility] [address] *FUNGAL CULTUREon 07-14-2020 *FUNGAL CULTURE Clinical Report: (D) Specimen/Source: FLUID/PLEURAL FLUID Collected: 07/14/2020 13:03 Status: Final Last Updated: 08/15/2020 08:41 (1) Left Peural Effusion FS (Final) No Yeast or Fungal Elements Seen CULT RES (Final) Culture negative for fungus Normal [facility] Comment on above: Order Comment: Left Peural Effusion Performed By: #### 8 [id number] #### [facility] [address] *VIRAL NON RESPIRATORY CULTU REon 07-14-2020 Bacteria identified Cx Nom (Unsp spec) Normal [facility] Comment on above: Order Comment: Left Peural [...] Linked Virus Inducible S. [place] Normal [facility] Comment on above: Order Comment: Left Peural Effusion Result Comment: Test Performed by [address] [id number] - Released 07/20/2020 14:10 Result changed by IF on 07/17/2020 14:17. The previous value was Test Performed by [address] [id number].. Result changed by IF on 07/18/2020 12:17. The previous value was Test Performed by [address] [phone].. Result changed by IF on 07/20/2020 14:10. The previous value was Test Performed by [address] [phone].. REPORT STATUS FINAL 07/20/2020 Normal [facility] Comment on above: Order Comment: Left Peural Effusion Result Comment: Resu lt changed by IF on 07/20/2020 14:10. The previous value was Preliminary. APTTon 07-14-2020 aPTT Coag (Bld) [Time] 41.7 s High 25.0-35.0 [facility] Comment on above: Order Comment: No: D [...] PURPOSE. Performed By: #### 8 [id number] #### [facility] [address] [place] [address], [facility] aPTT Coag (Bld) [Time] 44.9 s High 25.0-35.0 [facility] Comment on above: Order Comment: No: D [...] THIS PURPOSE. Performed By: #### 5 7307, [id number] #### [facility] [address] [place] [address], [facility] BASIC METABOLIC PANELon - Calcium [Mass/Vol] 8.6 mg/dL Normal 8.6-10.3 [facility] Comment on above: Order Comment: No: D o not add to previous draw Performed By: #### 8 [id number] #### [facility] [address] [place] [address], [facility] Chloride [Moles/Vol] 102 mmol/L Normal 98-107 [facility] Comment on above: Order Comment: No: D o not add to previous draw Performed By: #### 8 [id number] #### [facility] [address] [place] [address], [place] CO2 [Moles/Vol] 24 mmol/L Normal 21-31 [facility] Comment on above: Order Comment: No: D o not add to previous draw Performed By: #### 8 [id number] #### [facility] [address] [place] [address], [facility] Creatinine [Mass/Vol] 3.44 mg/dL High 0.70-1.30 [facility] Comment on above: Order Comment: No: D o not add to previous draw Performed By: #### 8 [id number] #### [facility] [address] [place] [address], [facility] eGFR- 22 ml/min/1.73sq m Abnormal >60 [facility] Comment on above: Order Comment: No: D o not add to previous draw Performed By: #### 8 [id number] #### [facility] [address] [place] [address], [facility] eGFR- non- 18 ml/min/1.73sq m Abnormal >60 [facility] Comment on above: Order Comment: No: D o not add to previous draw Performed By: #### 8 [id number] #### [facility] [address] [place] [address], [facility] Glucose [Mass/Vol] 355 mg/dL High 70-100 [facility] Comment on above: Order Comment: No: D o not add to previous draw Performed By: #### 8 [id number] #### [facility] [address] [place] [address], [facility] Potassium [Moles/Vol] 4.6 mmol/L Normal 3.5-5.1 [facility] Comment on above: Order Comment: No: D o not add to previous draw Performed By: #### 8 [id number] #### [facility] [address] [place] [address], [facility] Sodium [Moles/Vol] 133 mmol/L Low 136-145 [facility] Comment on above: Order Comment: No: D o not add to previous draw Performed By: #### 8 [id number] #### [facility] [address] [place] [address], [facility] Urea nitrogen [Mass/Vol] 27 mg/dL High 7-25 [facility] Comment on above: Order Comment: No: D o not add to previous draw Performed By: #### 8 [id number] #### [facility] [address] [place] [id number], [facility] BNP (B-TYPE NATRIURETIC PEPT CIERRA)on 07-14-2020 Natriuretic peptide B (Bld) [Mass/Vol] 19 pg/mL Normal 0-100 [facility] Comment on above: Order Comment: Left Peural Effusion Result Comment: Give n the appropriate clinical setting a BNP result of >100 pg/mL indicates congestive heart failure. Performed By: #### 3 0318 #### [facility] [address] [facility] [address] CBC COMPLETE BLOOD COUNTon 0 07-14-2020 Erythrocyte distribution width (RBC) [Ratio] 14.6 % Normal 11.5-15.0 [facility] Comment on above: Order Comment: No: D o not add to previous draw Performed By: #### 8 [id number] #### [facility] [address] [place] [id number], [facility] Hematocrit (Bld) [Volume fraction] 35.3 % Low 39.0-50.0 [facility] Comment on above: Order Comment: No: D o not add to previous draw Performed By: #### 8 [id number] #### [facility] [address] [place] [id number], [facility] Hemoglobin (Bld) [Mass/Vol] 11.1 g/dL Low 13.0-17.0 [facility] Comment on above: Order Comment: No: D o not add to previous draw Performed By: #### 8 [id number] #### [facility] [address] [place] [address], [facility] MCH (RBC) [Entitic mass] 27.5 pg Normal 27.0-33.0 [facility] Comment on above: Order Comment: No: D o not add to previous draw Performed By: #### 8 [id number] #### [facility] [address] [place] [id number], [facility] MCHC (RBC) [Mass/Vol] 31.4 g/dL Low 32.0-35.0 [facility] Comment on above: Order Comment: No: D o not add to previous draw Performed By: #### 8 [id number] #### [facility] [address] [place] [id number], [facility] MCV (RBC) [Entitic vol] 87.6 fL Normal 82.0-98.0 [facility] Comment on above: Order Comment: No: D o not add to previous draw Performed By: #### 8 [id number] #### [facility] [address] [place] [address], [facility] Nucleated RBC/100 WBC (Bld) [Ratio] 0 % Normal 0-0 [facility] Comment on above: Order Comment: No: D o not add to previous draw Performed By: #### 8 [id number] #### [facility] [address] [place] [address], [facility] PLAT CNT 325 10*3/uL Normal 150-400 [facility] Comment on above: Order Comment: No: D o not add to previous draw Performed By: #### 8 [id number] #### [facility] [address] [place] [address], [facility] RBC (Bld) [#/Vol] 4.03 10*6/uL Low 4.20-5.70 [facility] Comment on above: Order Comment: No: D o not add to previous draw Performed By: #### 8 [id number] #### [facility] [address] [place] [place] [address], [facility] WBC (Bld) [#/Vol] 12.59 10*3/uL High 4.00-10.60 [facility] Comment on above: Order Comment: No: D o not add to previous draw Performed By: #### 8 [id number] #### [facility] [address] [place] [address], [facility] CBC W/DIFFon 07-14-2020 ABS IMM GRANS 0.2 10*3/uL Normal 0.0-0.2 [facility] Comment on above: Order Comment: No: D o not add to previous draw Performed By: #### 8 [id number] #### [facility] [address] [place] [address], [facility] ABS NEUTROPHILS 7.9 10*3/uL High 1.6-7.6 [facility] Comment on above: Order Comment: No: D o not add to previous draw Performed By: #### 8 [id number] #### [facility] [address] [place] [address], [place] Basophils (Bld) [#/Vol] 0.1 10*3/uL Normal 0.0-0.2 [facility] Comment on above: Order Comment: No: D o not add to previous draw Performed By: #### 8 [id number] #### [facility] [address] [place] [address], [place] Basophils/100 WBC (Bld) 0.5 % Normal 0.0-1.0 [facility] Comment on above: Order Comment: No: D o not add to previous draw Performed By: #### 8 [id number] #### [facility] [address] [place] [address], [place] Eosinophils (Bld) [#/Vol] 0.5 10*3/uL Normal 0.0-0.5 [facility] Comment on above: Order Comment: No: D o not add to previous draw Performed By: #### 8 [id number] #### [facility] [address] [place] [address], [place] Eosinophils/100 WBC (Bld) 4.3 % Normal 0.0-6.0 [facility] Comment on above: Order Comment: No: D o not add to previous draw Performed By: #### 8 [id number] #### [facility] [address] [place] [address], [place] Erythrocyte distribution width (RBC) [Ratio] 14.6 % Normal 11.5-15.0 [facility] Comment on above: Order Comment: No: D o not add to previous draw Performed By: #### 8 [id number] #### [facility] [address] [place] [address], [place] Hematocrit (Bld) [Volume fraction] 34.2 % Low 39.0-50.0 [facility] Comment on above: Order Comment: No: D o not add to previous draw Performed By: #### 8 [id number] #### [facility] [address] [place] [address], [facility] Hemoglobin (Bld) [Mass/Vol] 10.3 g/dL Low 13.0-17.0 [facility] Comment on above: Order Comment: No: D o not add to previous draw Performed By: #### 8 [id number] #### [facility] [address] [facility] [place] [address], [facility] IMMATURE GRANS 1.4 % High 0.0-1.0 [facility] Comment on above: Order Comment: No: D o not add to previous draw Performed By: #### 8 [id number] #### [facility] [address] [facility] [place] [address], [facility] Lymphocytes (Bld) [#/Vol] 1.3 10*3/uL Normal 1.2-4.0 [facility] Comment on above: Order Comment: No: D o not add to previous draw Performed By: #### 8 [id number] #### [facility] [address] [facility] [place] [address], [facility] Lymphocytes/100 WBC (Bld) 11.3 % Low 20.0-45.0 [facility] Comment on above: Order Comment: No: D o not add to previous draw Performed By: #### 8 [id number] #### [facility] [address] [facility] [place] [id number], [facility] MCH (RBC) [Entitic mass] 27.0 pg Normal 27.0-33.0 [facility] Comment on above: Order Comment: No: D o not add to previous draw Performed By: #### 8 [id number] #### [facility] [address] [place] [id number], [facility] MCHC (RBC) [Mass/Vol] 30.1 g/dL Low 32.0-35.0 [facility] Comment on above: Order Comment: No: D o not add to previous draw Performed By: #### 8 [id number] #### [facility] [address] [place] [address], [facility] MCV (RBC) [Entitic vol] 89.5 fL Normal 82.0-98.0 [facility] Comment on above: Order Comment: No: D o not add to previous draw Performed By: #### 8 [id number] #### [facility] [address] [place] [address], [facility] Monocytes (Bld) [#/Vol] 1.4 10*3/uL High 0.1-1.0 [facility] Comment on above: Order Comment: No: D o not add to previous draw Performed By: #### 8 [id number] #### [facility] [address] [place] [address], [facility] MONOS 12.6 % High 5.0-12.0 [facility] Comment on above: Order Comment: No: D o not add to previous draw Performed By: #### 8 [id number] #### [facility] [address] [facility]. [address] Neutrophils/100 WBC (Bld) 69.9 % Normal 40.0-72.0 [facility] Comment on above: Order Comment: No: D o not add to previous draw Performed By: #### 8 [id number] #### [facility] 3000 [place] [address], [facility] Nucleated RBC/100 WBC (Bld) [Ratio] 0 % Normal 0-0 [facility] Comment on above: Order Comment: No: D o not add to previous draw Performed By: #### 8 [id number] #### [facility] [address] [facility] [place] [address], [facility] PLAT CNT 292 10*3/uL Normal 150-400 [facility] Comment on above: Order Comment: No: D o not add to previous draw Performed By: #### 8 [id number] #### [facility] [address] [place] [address], [facility] RBC (Bld) [#/Vol] 3.82 10*6/uL Low 4.20-5.70 [facility] Comment on above: Order Comment: No: D o not add to previous draw Performed By: #### 8 [id number] #### [facility] [address] [place] [address], [facility] WBC (Bld) [#/Vol] 11.28 10*3/uL High 4.00-10.60 [facility] Comment on above: Order Comment: No: D o not add to previous draw Performed By: #### 8 [id number] #### [facility] [address] [place] [address], [facility] COMP METABOLIC PANELon 07-14 Albumin [Mass/Vol] 3.1 g/dL Low 3.5-5.7 [facility] Comment on above: Order Comment: No: D o not add to previous draw Performed By: #### 8 [id number] #### [facility] [address] [place] [address], [facility] ALKALINE PHOSPH 77 IU/L Normal 34-104 [facility] Comment on above: Order Comment: No: D o not add to previous draw Performed By: #### 8 [id number] #### [facility] [address] [place] [id number], [facility] ALT [Catalytic activity/Vol] 8 U/L Normal 7-52 [facility] Comment on above: Order Comment: No: D o not add to previous draw Performed By: #### 8 [id number] #### [facility] [address] [place] [id number], [place] AST [Catalytic activity/Vol] 11 U/L Low 13-39 [facility] Comment on above: Order Comment: No: D o not add to previous draw Performed By: #### 8 [id number] #### [facility] [address] [place] [address], [place] Bilirubin [Mass/Vol] 0.3 mg/dL Normal 0.3-1.0 [facility] Comment on above: Order Comment: No: D o not add to previous draw Performed By: #### 8 [id number] #### [facility] [address] [place] [address], [place] Calcium [Mass/Vol] 8.8 mg/dL Normal 8.6-10.3 [facility] Comment on above: Order Comment: No: D o not add to previous draw Performed By: #### 8 [id number] #### [facility] [address] [place] [address], [place] Chloride [Moles/Vol] 101 mmol/L Normal 98-107 [facility] Comment on above: Order Comment: No: D o not add to previous draw Performed By: #### 8 [id number] #### [facility] [address] [place] [address], [place] CO2 [Moles/Vol] 22 mmol/L Normal 21-31 [facility] Comment on above: Order Comment: No: D o not add to previous draw Performed By: #### 8 [id number] #### [facility] [address] [place] [address], [place] Creatinine [Mass/Vol] 3.38 mg/dL High 0.70-1.30 [facility] Comment on above: Order Comment: No: D o not add to previous draw Performed By: #### 8 [id number] #### [facility] [address] [place] [address], [place] eGFR- 23 ml/min/1.73sq m Abnormal >60 [facility] Comment on above: Order Comment: No: D o not add to previous draw Performed By: #### 8 [id number] #### [facility] [address] [place] [address], [facility] eGFR- non- 19 ml/min/1.73sq m Abnormal >60 [facility] Comment on above: Order Comment: No: D o not add to previous draw Performed By: #### 8 [id number] #### [facility] [address] [place] [address], [place] Glucose [Mass/Vol] 324 mg/dL High 70-100 [facility] Comment on above: Order Comment: No: D o not add to previous draw Performed By: #### 8 [id number] #### [facility] [address] [place] [address], [place] Potassium [Moles/Vol] 4.5 mmol/L Normal 3.5-5.1 [facility] Comment on above: Order Comment: No: D o not add to previous draw Performed By: #### 8 [id number] #### [facility] [address] [place] [address], [place] Protein [Mass/Vol] 6.7 g/dL Normal 6.0-8.3 [facility] Comment on above: Order Comment: No: D o not add to previous draw Performed By: #### 8 [id number] #### [facility] [address] [place] [address], [place] Sodium [Moles/Vol] 131 mmol/L Low 136-145 [facility] Comment on above: Order Comment: No: D o not add to previous draw Performed By: #### 8 [id number] #### [facility] [address] [place] [address], [place] Urea nitrogen [Mass/Vol] 27 mg/dL High 7-25 [facility] Comment on above: Order Comment: No: D o not add to previous draw Performed By: #### 8 [id number] #### [facility] [address] [place] [address], [place] CREATININE URINE RANDOMon Creatinine (U) [Mass/Vol] 101.0 mg/dL Normal [facility] Comment on above: Order Comment: No: D o not add to previous draw Result Comment: Ther e are no established reference values for random urine specimens Performed By: #### 8 [id number] #### [facility] [address] [place] [address], [facility] FLUID CELL COUNTon 1 Basophils/100 WBC (Bld) 1 % Normal [facility] Comment on above: Performed By: #### 8 [id number] #### [facility] [address] [place] [address], [facility] Eosinophils/100 WBC (Bld) 11 % Normal [facility] Comment on above: Performed By: #### 8 [id number] #### [facility] [address] [place] [address], [facility] Lymphocytes/100 WBC (Bld) 49 % Normal [facility] Comment on above: Performed By: #### 8 [id number] #### [facility] [address] [place] [address], [facility] MESOTHELIAL 12 % Normal [facility] Comment on above: Performed By: #### 8 [id number] #### [facility] [address] [facility] [place] [address], [facility] OTHER F1 Diff done by cytospin Normal [facility] Comment on above: Performed By: #### 8 [id number] #### [facility] [address] [facility] [place] [address], [facility] OTHER F3 Checked by Evelyn Rodriguez M.D. Normal [facility] Comment on above: Result Comment: Resu lt changed by THUERR on 07/15/2020 13:33. The previous value was Preliminary report; verified report to follow. Performed By: #### 8 [id number] #### [facility] [address] [place] [address], [facility] RBC 31860 RBC/uL Normal [facility] Comment on above: Performed By: #### 8 [id number] #### [facility] [address] [place] [address], [place] SEGS 27 % Normal [facility] Comment on above: Performed By: #### 8 [id number] #### [facility] [address] [place] [address], [place] SOURCE Thoracentesis Normal [facility] Comment on above: Performed By: #### 8 [id number] #### [facility] [address] [place] [address], [place] TOTAL VOLUME 1L Normal [facility] Comment on above: Performed By: #### 8 [id number] #### [facility] [address] [place] [address], [place] WBC 1762 WBC/uL Normal [facility] Comment on above: Result Comment: Some reference interval(s) and other method performance specifications have not been established for analytes on this body fluid. The test result must be integrated into the clinical context for interpretation. Performed By: #### 8 [id number] #### [facility] [address] [place] [address], [place] GLUCOSE FLUID MISCon 021 Glucose [Mass/Vol] 326 mg/dL Normal [facility] Comment on above: Result Comment: The reference range and other method performance specifications have not been established for this test in fluids. the test result should be integrated into the clinical context for interpretation. Performed By: #### 3 1944 #### [facility] [address] [place] [address], [place] HEMOGLOBIN A1Con 07-14-2020 Glucose [Moles/Vol] 295 mmol/L Normal [facility] Comment on above: Order Comment: Left Peural Effusion Performed By: #### 3 0318 #### [facility] [address] [place] [address], [place] HbA1c (Bld) [Mass fraction] 11.9 % High 4.0-6.0 [facility] Comment on above: Order Comment: Left Peural Effusion Performed By: #### 3 0318 #### [facility] [address] [place] [address], [facility] HEPATITIS B SURFACE ANTIGEN QUALon 07-14-2020 HEP B SURF AG QUAL Non-Reactive Normal NONREACTIVE [facility] Comment on above: Order Comment: No: D o not add to previous draw Performed By: #### 3 4 #### [facility] [address] [place] [address], [facility] HEPATITIS C ANTIBODYon 07-14 ANTI-HCV Non-Reactive Normal NONREACTIVE [facility] Comment on above: Order Comment: No: D o not add to previous draw Performed By: #### 3 4 #### [facility] [address] [place] [address], [facility] LDH BLOODon 07-14-2020 LDH 176 Units/L Normal 140-271 [facility] Comment on above: Order Comment: Left Peural Effusion Performed By: #### 3 0318 #### [facility] [address] [place] [address], [facility] LDH 133 Units/L Low 140-271 [facility] Comment on above: Order Comment: No: D o not add to previous draw Performed By: #### 8 [id number] #### [facility] [address] [place] [address], [facility] LDH FLUIDon 07-14-2020 LDH 212 Units/L Normal [facility] Comment on above: Result Comment: The reference range and other method performance specifications have not been established for this test in fluids. the test result should be integrated into the clinical context for interpretation. Performed By: #### 3 4 #### [facility] [address] [place] [address], [facility] LIPID PROFILEon 07-14-2020 Cholesterol [Mass/Vol] 95 mg/dL Low 120-200 [facility] Comment on above: Order Comment: No: D o not add to previous draw Result Comment: CHOL ESTEROL REFERENCE RANGE: 20 YEARS AND OLDER CARDIOVASCULAR RISK Less than 200 mg/dl Low Risk 200 to 239 mg/dl Borderline Risk 240 mg/dl and greater High Risk Performed By: #### 8 [id number] #### [facility] [address] [place] [address], [place] Cholesterol in HDL [Mass/Vol] 36 mg/dL Normal 23-92 [facility] Comment on above: Order Comment: No: D o not add to previous draw Result Comment: Slig ht variation in normal range could be due to gender and/or age. HDL CHOLESTEROL REFERENCE RANGE: 20 years and older Cardiovascular Risk > or =60 mg/dL Desirable 40 TO 59 mg/dL Low Risk <40 mg/dL High Risk Performed By: #### 8 [id number] #### [facility] [address] [facility] [place] [address], [facility] Cholesterol in LDL [Mass/Vol] 37 mg/dL Normal 0-130 [facility] Comment on above: Order Comment: No: D o not add to previous draw Result Comment: LDL IS A CALCULATION LDL IS ONLY VALID IF THE TRIG IS LESS THAN 400. Performed By: #### 8 [id number] #### [facility] [address] [place] [place] [address], [facility] Cholesterol.total/C holesterol in HDL [Mass ratio] 2.6 {ratio} Normal 0.0-4.5 [facility] Comment on above: Order Comment: No: D o not add to previous draw Performed By: #### 8 [id number] #### [facility] [address] [place] [address], [place] NON-HDL CHOLESTEROL 59 mg/dL Normal [facility] Comment on above: Order Comment: No: D o not add to previous draw Performed By: #### 8 [id number] #### [facility] [address] [place] [address], [place] Triglyceride [Mass/Vol] 109 mg/dL Normal 40-149 [facility] Comment on above: Order Comment: No: D o not add to previous draw Result Comment: TRIG LYCERIDE REFERENCE RANGE: 20 YEARS AND OLDER CARDIOVASCULAR RISK LESS THAN 150 mg/dl LOW RISK 150 TO 199 mg/dl BORDERLINE RISK 200 mg/dl AND GREATER HIGH RISK Performed By: #### 8 [id number] #### [facility] [address] [place] [address], [place] VLDL CHOL 22 mg/dL Normal 0-40 [facility] Comment on above: Order Comment: No: D o not add to previous draw Performed By: #### 8 [id number] #### [facility] [address] [place] [address], [place] MAGNESIUM BLOODon 07-14-2020 Magnesium [Mass/Vol] 2.1 mg/dL Normal 1.9-2.7 [facility] Comment on above: Order Comment: No: D o not add to previous draw Performed By: #### 8 [id number] #### [facility] [address] [place] [address], [place] Magnesium [Mass/Vol] 2.0 mg/dL Normal 1.9-2.7 [facility] Comment on above: Performed By: #### 8 [id number] #### [facility] [address] [place] [address], [facility] PHOSPHORUS BLOODon Phosphate [Mass/Vol] 4.1 mg/dL Normal 2.5-5.0 [facility] Comment on above: Order Comment: No: D o not add to previous draw Performed By: #### 8 [id number] #### [facility] [address] [place] [address], [place] Phosphate [Mass/Vol] 4.0 mg/dL Normal 2.5-5.0 [facility] Comment on above: Performed By: #### 8 [id number] #### [facility] [address] [place] [address], [place] POC GLUCOSE LABon 07-14-2020 Glucose [Mass/Vol] 180 mg/dL High 70-100 [facility] Comment on above: Performed By: #### 8 [id number] ####[facility] [place] [address], [place] Glucose [Mass/Vol] 198 mg/dL High 70-100 [facility] Comment on above: Performed By: #### 5 7307, [id number] #### [facility] [address] [place] [address], [place] Glucose [Mass/Vol] 265 mg/dL High 70-100 [facility] Comment on above: Performed By: #### 8 [id number] #### [facility] [address] [place] [address], [place] Glucose [Mass/Vol] 305 mg/dL High 70-100 [facility] Comment on above: Performed By: #### 5 7307, 96038 #### [facility] [address] [place] [address], [place] Glucose [Mass/Vol] 301 mg/dL High 70-100 [facility] Comment on above: Performed By: #### 5 0103 #### [facility] [address] [place] [address], [place] PORTABLE CHEST 1 VIEWon 06-27 PORTABLE CHEST 1 VIEW [facility] Department of Radiology [address] [place] [address] Patient Name: RASHARD LYMAN : 1960 Sex: M Age: Race: White Pt. Location: [address] [place] [address] Patient Status: I Ordered Date: 07/14/2020 1:40:00 [...] above Electronically signed: Patricia Damon. Transcribed by: [email or web address], User Resident: Electronically Signed by: PATRICIA DAMON @ 07/14/2020 03:24 PM Normal [facility] Comment on above: Order Comment: Evalu ate for Pneumothorax PORTABLE CHEST 1 VIEW [facility] Department of Radiology [address] [place] [id number] Patient Name: RASHARD LYMAN : 1960 Sex: M Age: Race: White Pt. Location: [id number] Patient Status: I Ordered Date: 07/13/2020 11:35:00 [...] reports Electronically signed: Valdemar Foster. Transcribed by: [email or web address], User Resident: SY [email or web address] Electronically Signed by: VALDEMAR FOSTER @ 07/14/2020 06:31 AM I personally read this/these film(s) with this resident Normal [facility] Comment on above: Order Comment: evalu ate for Effusion PROTEIN ELECT Truong 07-14-2020 Protein [Mass/Vol] 6.0 g/dL Normal 6.0-8.3 [facility] Comment on above: Performed By: #### 3 0318 #### [facility] [address] [place] [address], [place] PROTEIN ELECT Normal [facility] Comment on above: Result Comment: Decr eased albumin and elevated alpha 1 and 2 suggests acute inflammation. Performed By: #### 3 0318 #### [facility] [address] [place] [address], [place] PROTEIN ELECT URon PROTEIN ELECT Urine protein electrophoresis suggests a nonselective nephropathy. Normal [facility] Comment on above: Performed By: #### 3 1944 #### [facility] [address] [facility] PROTEIN TOTAL BLOODon 2020 Protein [Mass/Vol] 6.7 g/dL Normal 6.0-8.3 [facility] Comment on above: Order Comment: Left Peural Effusion Performed By: #### 3 0318 #### [facility] [address] [facility] [place] [address], [facility] PROTHROMBIN TIMEon INR Coag (PPP) [Relative time] 1.12 {INR} Normal 0.91-1.16 [facility] Comment on above: Order Comment: No: D [...] CHEST 1995;[id number]. Performed By: #### 5 7307, 73411 #### [facility] [address] [place] [place] [address], [facility] PT Coag (PPP) [Time] 14.4 s Normal 12.3-14.8 [facility] Comment on above: Order Comment: No: D o not add to previous draw Result Comment: ALL RESULTS MUST BE INTERPRETED WITH RESPECT TO BLOOD DRAWING ARTIFACT OR DILUTION ERROR OF ANTICOAGULANT AT THE TIME OF SAMPLING. Performed By: #### 5 7307, 03004 #### [facility] [address] [place] [address], [facility] SEDIMENTATION RATEon 021 SED RATE 32 mm/hr High 0-10 [facility] Comment on above: Performed By: #### 8 [id number] #### [facility] [address] [place] [address], [facility] SODIUM URINE RANDOMon 2020 Sodium (U) [Moles/Vol] 59 mmol/L Normal [facility] Comment on above: Order Comment: No: D o not add to previous draw Result Comment: Ther e are no established reference values for random urine specimens Performed By: #### 8 [id number] #### [facility] [address] [place] [address], [facility] T PROT FLUIDon 07-14-2020 Protein [Mass/Vol] 3.6 g/dL Normal [facility] Comment on above: Result Comment: The reference range and other method performance specifications have not been established for this test in fluids. the test result should be integrated into the clinical context for interpretation. Performed By: #### 3 1944 #### [facility] [address] [place] [address], [facility] T PROT UR Loretta 07-14-2020 U TOTAL PROTEIN 859.0 mg/dL Normal [facility] Comment on above: Order Comment: No: D o not add to previous draw Result Comment: Ther e are no established reference values for random urine specimens Performed By: #### 8 [id number] #### [facility] [address] [place] [address], [facility] Performed By: #### 3 1944 #### [facility] [address] [place] [address], [facility] TROPONIN-Ion 07-14-2020 Troponin I.cardiac [Mass/Vol] 0.09 ng/mL High 0.00-0.04 [facility] Comment on above: Order Comment: No: D o not add to previous draw Result Comment: REFE RENCE RANGES: 0.00 - 0.04 ng/ml NORMAL 0.05 - 0.50 ng/ml INDETERMINATE > 0.50 ng/ml CONSISTENT WITH AN M.I. Performed By: #### 8 [id number] #### [facility] [address] [place] [address], [facility] Troponin I.cardiac [Mass/Vol] 0.07 ng/mL High 0.00-0.04 [facility] Comment on above: Order Comment: No: D o not add to previous draw Result Comment: REFE RENCE RANGES: 0.00 - 0.04 ng/ml NORMAL 0.05 - 0.50 ng/ml INDETERMINATE > 0.50 ng/ml CONSISTENT WITH AN M.I. Performed By: #### 8 [id number] #### [facility] [address] [place] [place] [address], [facility] TSH3on 07-14-2020 TSH 3RD GENERATION 3.28 uIU/mL Normal 0.34-5.60 [facility] Comment on above: Order Comment: No: D o not add to previous draw Performed By: #### 8 [id number] #### [facility] [address] [facility] [place] [address], [facility] URIC ACID BLOODon 07-14-2020 Urate [Mass/Vol] 7.1 mg/dL Normal 4.4-7.6 [facility] Comment on above: Performed By: #### 8 [id number] #### [facility] [address] [place] [address], [facility] URINALYSIS REFLEXon 07-15-19 21 Appearance (U) SL CLOUDY Abnormal CLEAR [facility] Comment on above: Order Comment: Left Peural Effusion Performed By: #### 3 0318 #### [facility] [address] [place] [address], [facility] Bilirubin Ql (U) Negative Normal NEGATIVE [facility] Comment on above: Order Comment: Left Peural Effusion Performed By: #### 3 0318 #### [facility] [address] [place] [address], [place] Color (U) YELLOW Normal YELLOW [facility] Comment on above: Order Comment: Left Peural Effusion Performed By: #### 3 0318 #### [facility] [address] [place] [address], [place] EPIS FEW Normal FEW,OCC,NONE SEEN [facility] Comment on above: Order Comment: Left Peural Effusion Performed By: #### 3 0318 #### [facility] [address] [place] [address], [place] Glucose Ql (U) >=500 Abnormal NEGATIVE [facility] Comment on above: Order Comment: Left Peural Effusion Performed By: #### 3 0318 #### [facility] [address] [place] [address], [place] Hemoglobin Ql (U) TRACE Abnormal NEGATIVE [facility] Comment on above: Order Comment: Left Peural Effusion Performed By: #### 3 0318 #### [facility] [address] [place] [address], [place] KETONE TRACE Abnormal NEGATIVE [facility] Comment on above: Order Comment: Left Peural Effusion Performed By: #### 3 0318 #### [facility] [facility] [address] [place] [address], [place] LEUK JACIEL Negative Normal NEGATIVE [facility] Comment on above: Order Comment: Left Peural Effusion Performed By: #### 3 0318 #### [facility] [address] [place] [address], [place] MUCUS THREADS OCC Abnormal NONE SEEN [facility] Comment on above: Order Comment: Left Peural Effusion Performed By: #### 3 0318 #### [facility] [address] [place] [address], [place] Nitrite Ql (U) Negative Normal NEGATIVE [facility] Comment on above: Order Comment: Left Peural Effusion Performed By: #### 3 0318 #### [facility] [address] [facility]. [address] pH (U) 6.0 [pH] Normal 5.0-8.0 [facility] Comment on above: Order Comment: Left Peural Effusion Performed By: #### 3 0318 #### [facility] [address] [place] [place] [address], [facility] Protein Ql (U) >=500 Abnormal NEGATIVE [facility] Comment on above: Order Comment: Left Peural Effusion Performed By: #### 3 0318 #### [facility] [address] RBC 0-2 Abnormal NONE SEEN [facility] Comment on above: Order Comment: Left Peural Effusion Performed By: #### 3 0318 #### [facility] [address] SPEC GRAV 1.017 Normal 1.015-1.020 [facility] Comment on above: Order Comment: Left Peural Effusion Performed By: #### 3 0318 #### [facility] [address] [place] [place] [address], [facility] WBC UA 3-5 Abnormal NONE SEEN [facility] Comment on above: Order Comment: Left Peural Effusion Performed By: #### 3 0318 #### [facility] [address] Vital Signs Date Time Vital Sign Value Performing Clinician Facility 03-21-2021 15:40-0500 Body height 193.04 cm Kike Pollack Other [employer] Other 03-21-2021 15:40-0500 Body mass index (BMI) [Ratio] 39.02 kg/m2 Kike Pollack Other [employer] Other 03-21-2021 15:40-0500 Body temperature 97.8 [degF] Kike Pollack Other [facility] [employer] Other 03-21-2021 15:40-0500 Body weight 145.42 kg Kike Pollack Other [employer] Other 03-21-2021 15:40-0500 Diastolic blood pressure 84 mm[Hg] Kike Pollack Other [employer] Other 03-21-2021 15:40-0500 Respiratory rate 18 /min Kike Pollack Other [employer] Other 03-21-2021 15:40-0500 SaO2% (BldA) [Mass fraction] 96 % Kike Pollack Other [employer] Other 03-21-2021 15:40-0500 Systolic blood pressure 137 mm[Hg] Kike Pollack Other [employer] Other 08-25-2020 12:24-0400 Heart rate 82 /min Jose Valone Work Phone: [facility] 08-25-2020 12:24-0400 Respiratory rate 20 /min Jose Valone Work Phone: [facility] 08-25-2020 11:17-0400 Body temperature 98.7 [degF] Jose Valone Work Phone: [facility] 08-25-2020 11:17-0400 Diastolic blood pressure 94 mm[Hg] Jose Valone Work Phone: [facility] 08-25-2020 11:17-0400 SaO2% (BldA) [Mass fraction] 96 % Jose Valone Work Phone: [facility] 08-25-2020 11:17-0400 Systolic blood pressure 183 mm[Hg] Jose Valone Work Phone: [facility] 08-25-2020 06:00-0400 Body weight 160.5 kg Jose Valone Work Phone: [facility] 08-19-2020 14:17-0400 Body height 193.04 cm Jose Valone Work Phone: [facility] 08-18-2020 21:22-0400 Body height 193.04 cm Jose Valone Work Phone: [facility] 08-18-2020 21:22-0400 Body mass index (BMI) [Ratio] 43.8 kg/m2 Jose Valone Work Phone: [facility] 08-18-2020 21:22-0400 Body temperature 97.6 [degF] Jose Valone Work Phone: [facility] 08-18-2020 21:22-0400 Body weight 163.3 kg Jose Valone Work Phone: [facility] 08-18-2020 21:22-0400 Diastolic blood pressure 80 mm[Hg] Jose Valone Work Phone: [facility] 08-18-2020 21:22-0400 Heart rate 105 /min Jose Valone Work Phone: [facility] 08-18-2020 21:22-0400 Respiratory rate 18 /min Jose Forteone Work Phone: [facility] 08-18-2020 21:22-0400 SaO2% (BldA) [Mass fraction] 94 % Jose Valone Work Phone: [facility] 08-18-2020 21:22-0400 Systolic blood pressure 160 mm[Hg] Jose Valone Work Phone: [facility] Encounters Encounter Date Encounter Type Care Provider Facility Start: 05-06-2023 End: 05-07-2023 ambulatory JOSE JUAREZ [facility] Start: 04-19-2023 End: 04-20-2023 ambulatory CHINO ELLIOTT [facility] Start: 02-27-2023 End: 02-28-2023 ambulatory JUANCARLOS [facility] Start: 09-11-2022 End: 09-12-2022 ambulatory CHINO ELLIOTT Facility:[facility]1 Start: 08-28-2022 End: 08-29-2022 ambulatory CHINO Hopson JOSEHERNESTO Facility:[facility] Start: 08-24-2022 End: 08-25-[address] JOSE JUAREZ Facility:[facility] Start: 08-20-2022 End: 08-21-[address] JOSE JUAREZ Facility:[facility] Start: 08-19-2022 Encounter for preprocedural cardiovascular examination [facility] Start: 08-19-2022 Encounter for preprocedural laboratory examination [facility] Start: 08-19-2022 Encounter for preprocedural respiratory examination [facility] Start: 08-15-2022 End: 08-16-[address] JOSE [...] JUAREZ Facility:[facility] Start: 02-02-2022 End: 02-03-2022 ambulatory PETER D HIGHLANDER Facility:[facility]1 Start: 01-26-2022 End: 01-27-2022 ambulatory PETER D HIGHLANDER Facility:[facility]1 Start: 01-18-2022 End: 01-19-2022 ambulatory PETER D HIGHLANDER Facility:[facility]1 Start: 01-15-2022 End: 01-15-2022 ambulatory PETER D HIGHLANDER Facility:[facility]1 Start: 01-12-2022 End: 01-13-2022 ambulatory PETER D HIGHLANDER Facility:[facility]1 Start: 01-10-2022 End: 01-11-2022 ambulatory PETER D HIGHLANDER Facility:[facility]1 Start: 01-02-2022 End: 01-03-2022 ambulatory PETER D HIGHLANDER Facility:[facility]1 Start: 12-25-2021 End: 12-26-2021 ambulatory PETER D HIGHLANDER Facility:[facility]1 Start: 12-21-2021 End: 12-22-2021 ambulatory MOSES Patricia RYAN Facility:[facility]1 Start: 12-18-2021 End: 12-19-2021 ambulatory PETER D HIGHLANDER Facility:[facility]1 Start: 12-15-2021 End: 12-16-2021 ambulatory PETER D HIGHLANDER Facility:[facility]1 Start: 12-11-2021 End: 12-12-2021 ambulatory CHINO D HIGHLANDER Facility:[facility]1 Start: 11-30-2021 End: 12-01-[address] CARLOS EDUARDO SU . Facility:[facility]1 Start: 11-22-2021 End: 11-23-[address] CARLOS EDUARDO SU . Facility:[facility]1 Start: 11-21-2021 End: 11-22-[address] [facility] Facility:[facility]1 Start: 11-14-[address] CARLOS EDUARDO SU . Faci lity:H1 Start: 11-13-2021 End: 11-14-2021 ambulatory CHINO [facility] Facility:[facility]1 Start: 11-07-2021 End: 11-08-2021 ambulatory CHINO [facility] Facility:[facility]1 Start: 10-31-2021 End: 11-01-2021 ambulatory CHINO [facility] Facility:[facility]1 Start: 10-24-2021 End: 10-25-2021 ambulatory CHINO [facility] Facility:[facility]1 Start: 10-17-2021 End: 10-18-2021 ambulatory CHINO [facility] Facility:[facility]1 Start: 10-09-2021 End: 10-10-2021 ambulatory CHINO [facility] Facility:[facility]1 Start: 03-21-2021 End: 03-21-2021 ambulatory Kike Pollack Other [employer] Other Start: 03-21-2021 Office outpatient vi sit 25 minutes Kike Pollack [facility] Start: 10-20-2020 End: 10-21-2020 ambulatory UNKNOWN PROVIDER Facility:[facility] Start: 09-28-2020 End: 09-28-2020 Patient encounter procedure Jose Juarez Work Phone: -Respiratory Therapy Start: 09-06-2020 End: 09-06-2020 Patient encounter procedure Jose Juarez Work Phone: -Electrodiagnostics Start: 08-18-2020 End: 08-25-2020 Evaluation and management of inpatient Jose Juarez Work Phone: -[facility] Start: 07-13-2020 End: 07-22-2020 Evaluation and management of inpatient SAVANNAH REYNOLDS Facility:[facility] Procedures Date Procedure Procedure Detail Performing Clinician Start: 08-20-2020 MR thoracic spine wo con Jose Tod Work Phone: Start: 08-19-2020 CT abdomen pelvis wo con Jose Reannanikolay Work Phone: Start: 08-19-2020 CT chest wo con Jose Tod Work Phone: Start: 08-19-2020 Ultrasonography of b ilateral kidneys Jose Juarez Work Phone: Start: 08-19-2020 End: 08-19-2020 Aerobic microbial culture Jose Juarez Work Phone: Start: 08-19-2020 Investigation of tra nsfusion reaction Jose Juarez Work Phone: Start: 08-18-2020 Plain chest X-ray Charl uli Juarez Work Phone: Start: 08-18-2020 Blood culture for ba cteria, including anaerobic screen Jose Juarez Work Phone: Start: 08-18-2020 Respiratory Panel (PCR) Jose Juarez Work Phone: Start: 07-19-2020 DRAINAGE OF L [...] OF R IGHT AND LEFT HEART, TRANSESOPHAGEAL TRISHA CALLAWAY Plan of Treatment Date Care Activity Detail Author Start: 08-18-2020 Bacteria identified in Blood by Culture Blood Culture [facility] Patient referral [facility] Immunizations Immunization Date Immunization Notes Care Provider Iker de la garza 05-27-2015 influenza, seasonal, injectable Kike Pollack Other [employer] Other 05-27-2015 pneumococcal polysaccharide vaccine, 23 valent Kike Pollack Other [employer] Other Payers Date Payer Category Payer Unknown [id number] 1960 Unknown [id number] 2.16.8 40.1.519595.3.579.2.647 1960 Unknown [id number] 2.16. 840.1.210965.3.579.2.732 1960 Unknown [id number] 2.16.84 0.1.224718.3.579.2.593 1960 Unknown [id number] 2.16.84 0.1.468840.3.579.2.593 1960 Unknown [id number] 2.16.84 0.1.633362.3.579.2.593 1960 Unknown [id number] 2.16.84 0.1.106988.3.579.2.593 1960 Unknown [id number] 2.16.84 0.1.564117.3.579.2.593 1960 Unknown [id number] 2.16.84 0.1.746967.3.579.2.593 1960 Unknown [id number] 2.16.84 0.1.412541.3.579.2.593 1960 Unknown [id number] 2.16.84 0.1.276509.3.579.2.593 1960 Unknown [id number] 2.16.84 0.1.969970.3.579.2.593 1960 Unknown [id number] 2.16.84 0.1.557187.3.579.2.593 1960 Unknown [id number] 2.16.84 0.1.677153.3.579.2.593 1960 Unknown [id number] 2.16.84 0.1.487785.3.579.2.593 1960 Unknown [id number] 2.16.84 0.1.130099.3.579.2.593 1960 Unknown [id number] 2.16.84 0.1.835426.3.579.2.593 1960 Unknown [id number] 2.16.84 0.1.804620.3.579.2.593 1960 Unknown [id number] 2.16.84 0.1.076444.3.579.2.593 1960 Unknown [id number] 2.16.84 0.1.864742.3.579.2.593 1960 Unknown [id number] 2.16.84 0.1.560011.3.579.2.593 1960 Unknown [id number] 2.16.84 0.1.128387.3.579.2.593 1960 Unknown [id number] 2.16.84 0.1.499947.3.579.2.593 1960 Unknown [id number] 2.16.84 0.1.091751.3.579.2.593 1960 Unknown [id number] 2.16.84 0.1.815070.3.579.2.593 1960 Unknown [id number] 2.16.84 0.1.172581.3.579.2.593 1960 Unknown [id number] 2.16.84 0.1.829060.3.579.2.593 1960 Unknown [id number] 2.16.84 0.1.294307.3.579.2.593 1960 Unknown [id number] 2.16.84 0.1.684989.3.579.2.593 1960 Unknown [id number] 2.16.84 0.1.709967.3.579.2.593 1960 Unknown [id number] 2.16.84 0.1.916026.3.579.2.593 1960 Unknown [id number] 2.16.84 0.1.764903.3.579.2.593 1960 Unknown [id number] 2.16.84 0.1.933188.3.579.2.593 1960 Unknown [id number] 2.16.84 0.1.804492.3.579.2.593 1960 Unknown [id number] 2.16.84 0.1.791316.3.579.2.593 1960 Unknown [id number] 2.16.84 0.1.505040.3.579.2.593 1960 Unknown [id number] 2.16.84 0.1.276861.3.579.2.593 1960 Unknown [id number] 2.16.84 0.1.997989.3.579.2.593 1960 Unknown [id number] 2.16.84 0.1.687967.3.579.2.593 1960 Unknown [id number] 2.16.84 0.1.313478.3.579.2.593 1960 Unknown [id number] 2.16.84 0.1.467601.3.579.2.593 1960 Unknown [id number] 2.16.84 0.1.244523.3.579.2.593 1960 Unknown [id number] 2.16.84 0.1.552966.3.579.2.593 1960 Unknown [id number] 2.16.84 0.1.524700.3.579.2.593 1960 Unknown [id number] 2.16.84 0.1.403199.3.579.2.593 1960 Unknown [id number] 2.16.84 0.1.603920.3.579.2.593 1960 Unknown [id number] 2.16.84 0.1.580458.3.579.2.593 1960 Unknown [id number] 2.16.84 0.1.854629.3.579.2.1286 1960 Unknown [id number] 2.16.84 0.1.543311.3.579.2.1286 1959 Unknown [id number] Medicare Self Pay [id number] Self-pay Self Pay [id number] Social History Date Type Detail Facility Tobacco smoking status NHIS Unknown if ever smoked [facility] Start: 1960 Sex Assigned At Male F [facility] Start: 08-18-2020 Tobacco smoking status NHIS Unknown if ever smoked [facility] Start: 08-22-2020 Tobacco smoking status NHIS Never smoked tobacco (finding) [facility] Sex Assigned At Sex Assigned At [facility] [employer] Other Goals Date Patient Goal Desired Activity /State Functional Status Date Assessment Result Facility 08-25-2020 Functional status Patient at Baseline [facility] Mental Status Date Assessment Result Facility 08-25-2020 Cognitive function Cognitive Sta tus Patient at Baseline [facility] Clinical Notes 07-15-2020 to 08-20-2022 Note Date [...] authenticated by: PRISCA SANDERSON Date: 2022-08-20 13:00 [facility] 08-15-2022 Note EXAM: XR CHEST 2 V [...] authenticated by: CHINO CABALLERO Date: 2022-08-15 15:06 [facility] 08-01-2022 Note PROCEDURE: XR FOOT L T [...] SALGUERO Date: 2022-08-01 07:[address] [facility] 03-01-2022 Note CONSULTATION CONSULTATION DATE: 03/01/2022 [...] with certain activities such as standing, walking, sleeve machine tender and evening hours, and changes in the [...] the plan of care. [facility] 03-01-2022 Note CONSULTATION PROCEDURE DATE: 03/01/2022 [...] patient tolerated procedure well. [facility] 12-22-2021 Note PROCEDURE: XR ANKLE LT [...] of the midfoot. Electronically authenticated by: PRISCA SANDESRON Date: 2021-12-22 10:[address] [facility] 12-22-2021 Note PROCEDURE: XR ANKLE LT [...] authenticated by: PRISCA SANDERSON Date: 2021-12-22 10:12 [facility] 12-22-2021 Note PROCEDURE: XR ANKLE LT MIN [...] authenticated by: PRISCA SANDERSON Date: 2021-12-22 10:12 [facility] 12-22-2021 Note PROCEDURE: XR ANKLE LT 2V HISTORY: Pain ; left ankle external fixation application COMPARISON: None. FINDINGS: BONES:3 intraoperative spot fluoroscopic images demonstrate external fixation device surrounding the left ankle. IMPRESSION: External fixation device application. Electronically authenticated by: PRISCA SANDERSON Date: 2021-12-22 10:07 [facility] 12-12-2021 Note PROCEDURE: XR FOOT L T [...] SANDERSON Date: 2021-12-12 08:[address] [facility] 11-30-2021 Note CONSULTATION The patient returns [...] in three months' time. [facility] 11-22-2021 Note CONSULTATION CONSULTATION DATE: 11/22/2021 [...] clinic to receive those. [facility] 11-14-2021 Note PROCEDURE: XR FOOT L [...] SANDERSON Date: 2021-11-14 15:[address] [facility] 11-07-2021 Note PROCEDURE: XR FOOT L [...] authenticated by: JAMESON SALGUERO Date: 2021-11-07 19:[address] [facility] 03-21-2021 Evaluation note Encounter Date Diagnosis Assessment [...] takes midodrine as well as stated above. [employer] Other 03-27-2021 NoteMR#: [id number] [facility] Pt. Name: Rashard Lyman Admitted: 07/13/2020 Discharged: [...] chest pain. Also, there is mention on [place] records of large inferior/lateral wall abnormality in [...] ON DISCHARGE: A (more content not included)...[facility]03-19-2021 NoteMR#: [id number] [facility] Pt. Name: Rashard Lyman Surgery Date: 07/14/2020 Room #: 3AB [id number] Date of : 1960 PROCEDURE NOTE ATTENDING: [...] Pham MD Date Trans: 07/15/2020 01:32 P/ [id number] cc: Nima Wynne MD [address] [place] [place] [address] [id number] NoteMR#: [id number] [facility] Pt. 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 Pham Indications: Nura Munoz is 60 [...] Wynne MD Date Trans: 07/15/2020 12:53 P/ [id number] [facility] Diagnosis Onset Date Resolution Status Hyperglycemia acute Pneumonia acute Psoriasis acute 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 acute CKD (chronic kidney disease) stage 4, GFR 15-29 ml/min chronic COPD (chronic obstructive pulmonary disease) chronic 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 GERD (gastroesophageal reflux disease) chronic Obesities, morbid chronic Peripheral vascular occlusive disease chronic 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 [facility]* Diagnosis Onset Date Resolution Status MARISOL (acute kidney injury) ac candida Anemia of renal disease acut e Atelectasis of left lung acu te Fibrothorax acute History of pleural effusion acute Metabolic acidosis acute Pericarditis acute Pleuritic chest pain acute Psoriasis acute 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 acute CKD (chronic kidney disease) stage 4, GFR 15-29 ml/min chronic COPD (chronic obstructive pulmonary disease) chronic 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 GERD (gastroesophageal reflux disease) chronic Hypertension chronic [id number] chronic Obesities, morbid chronic Peripheral vascular occlusive disease chronic 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 [facility] general Narrative - Reported* Type [...] HIS LOWER BACK Hospitalization History see above [employer] Other Hospital Discharge instructions Additional Instructions You are scheduled for an outpatient follow up ECHOCARDIOGRAM in 2 weeks at [facility] to re-assess your pericardial effusions on 09/06/2020 [...] knee Educate on high risk fall precautions [facility] Assessments No Assessments Information Available [...] 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 GERD (gastroesophageal reflux disease) Hypertension [id number] Obesities, morbid Peripheral vascular occlusive disease Status [...] 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 GERD (gastroesophageal reflux disease) Hypertension [id number] Obesities, morbid Peripheral vascular occlusive disease Status [...] 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 GERD (gastroesophageal reflux disease) Hypertension [id number] Obesities, morbid Peripheral vascular occlusive disease Status post amputation of toe of right foot Summary Purpose Family History No Family History Records Found Additional Source Comments (unrecognized sect ion and content) No Status Records FoundNo Status Records FoundNo Status Records FoundNo Status Records FoundNo Status Records FoundNo Status Records Found INFORMATION SOURCE (unrecogn ized section and content) DATE CREATED AUTHOR 09/11/2020 [facility] DATE CREATED AUTHOR AUTHOR'S ORGANIZ ATION 10/21/2020 [employer] [facility] DATE CREATED AUTHOR AUTHOR'S ORGANIZ ATION 08/03/2021 [facility] DATE CREATED AUTHOR AUTHOR'S ORGANIZ ATION 10/05/2022 [facility] DATE CREATED AUTHOR AUTHOR'S ORGANIZ ATION 02/28/2023 [facility] DATE CREATED AUTHOR AUTHOR'S ORGANIZ ATION 05/12/2023 [facility] Goals (unrecognized section and content) Goals may [...] BE BASED ON THE PRIMARY CLINICAL RECORDS. [facility] Project 2020 [facility]. provides no warranty or guarantee of the accuracy or completeness of information in this document.
== END 2023-05-15 13:59 | disposition home or self-care (01) ==
LOC: WC 13:58
PROVIDERS: PCP Podiatrist Foot & Ankle Surgery; Visit Provider Physician Assistant
DX: E11.621 Type 2 diabetes mellitus with foot ulcer (principal); L97.422 Non-pressure chronic ulcer of left heel and midfoot with fat layer exposed
CPT/HCPCS: 11042; A6213

== ENCOUNTER 2023-06-03 16:00 | Outpatient (OUT) | payer BC, SELFPAY ==
--- OUTSIDE RECORDS SUMMARY | 2023-06-03 16:14 | XMS_ITS | CCD ---
Author Name Unknown Address [address] [place] [address] Organization [facility] Care Team Providers Care Frit Maker Name Role Phone Jose Juarez Primary Care Provider Eugene Morel Admit Provider [phone] Eugene Morel Attending Provider [phone] Gordon Ewing Attending Provider [phone] Gautam Bazan Attending Provider SAVANNAH REYNOLDS Admitting Unavailable SAVANNAH REYNOLDS Attending Unavailable JOSE JUAREZ Primary Care Unavailable JOSE JUAREZ Referring Unavailable [place] Procedure Practitioner Unavailab TRISHA Ozuna Surgeon Unavailable NIMA WYNNE Surgeon Unavailable [place] Procedure Practitioner Unavailab Jose Andres Primary Care Provider Eugene Morel Admit Provider [phone] Gordon Ewing Attending Provider [phone] Gautam Bazan Attending Provider [phone] Latrice Lehman Attending Provider [phone] PROVIDER, UNKNOWN Attending Unavailable PROVIDER, UNKNOWN Admitting [...] CHINO Hopson Consulting Unavailable JOSEANDER, CHINO Hopson Attending Unavailable VALONE, DR GARCIA [...] Care Unavailable HIGHLANDER, CHINO Hopson Admitting Unavailable VALONE JRJOSE Referring Unavailable VALONE JOSE WILLIAMSON Primary Care Unavailable HIGHLANDER, CHINO Hopson Referring Unavailable VALONE JOSE WILLIAMSON Primary Care Unavailable JUANCARLOS LEHMAN Primary Care Unavailable VALONEJOSE Referring Unavailable JAUNCARLOS LEHMAN Primary Care Unavailable HIGHLANDER, CHINO Hopson Referring Unavailable Unavailable Unavailable Unavailable Allergies Allergy Classification Reported Allergen(s) Allergy Type Date of Onset Reaction(s) Facility exenatide (1 source) exenatide Drug Allergy 07-14-19 [facility] Repository NSAIDs (5 sources) celecoxib; Translations: [Celebrex] Drug Allergy 07-14-19 21 Difficulty Breathing [facility] Repository Phenolphthalein (1 source) Phenolphthalein Drug Allergy 07-14-19 21 [facility] Repository (3 sources) celecoxib; Translations: [celecoxib] Drug Allergy 07-21-19 17 Difficulty Breathing, bad for kidney [facility] Repository (2 sources) Aspirin; Translations: [ASPIRIN] Drug Allergy 07-21-19 17 bad for kidney [facility] Repository (1 source) Amoxicillin Drug Allergy 07-09-19 20 [facility] Repository (1 source) celecoxib Drug Allergy 07-09-19 [facility] Repository (1 source) exenatide Drug Allergy 07-09-19 [facility] Repository (1 source) Phenolphthalein Drug Allergy 07-09-19 [facility] Repository (1 source) exenatide; Translations: [EXENATIDE] Drug [...] mg tablets,dose pack Active 0 PO .COMPLEX 21 Anayeli 27th, 2021 10:30am orally per package directions metoprolol tartrate [...] (8 sources) Metabolic acidosis; Translations: [Acidosis] Episodic Genitourinary symptoms and ill-defined conditions (2 sources) Dysuria; Translations: [Dysuria] Onset: 4 Episodic Hypertension with complications and secondary hypertension [...] 3 Chronic Other aftercare (5 sources) Other intermediate (current) drug therapy; Translations: [OTH ALF CURRENT DRUG THERAPY] Onset: 3 Episodic Other [...] Onset: 06-27-2022 Episodic Other aftercare (1 source) 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 [address] Honing Machine Operator Semiautomatic: Jameson Aaron MD Blood, Urine TRACE Abnormal NEG [facility] Comment on above: Performed By: #### U AXCOURTNEY #### [facility] [address] [place] [address] Honing Machine Operator Semiautomatic: Jameson Aaron MD Clarity (U) SLIGHTLY CLOUDY Abnormal CLEAR [facility] Comment on above: Performed By: #### U AXCOURTNEY #### [facility] [address] [place] [address] Honing Machine Operator Semiautomatic: Jameson Aaron MD Color (U) Yellow Normal YEL [facility] Comment on above: Performed By: #### U AXLORIO #### [facility] [address] [place], [place] 8[address]83 Honing Machine Operator Semiautomatic: Jameson Aaron MD Glucose Ql (U) 3+ mg/dL Abnormal NEG [facility] Comment on above: Performed By: #### U AX, UMICAO #### [facility] [address] [place], [place] 8385183 Honing Machine Operator Semiautomatic: Jameson Aaron MD Ketones Ql (U) Negative Normal NEG [facility] Comment on above: Performed By: #### U AX, UMICAO #### [facility] [address] [place], [place] 1542883 Honing Machine Operator Semiautomatic: Jameson Aaron MD Leukocyte esterase Test strip Ql (U) TRACE Abnormal NEG [facility] Comment on above: Performed By: #### U AX, UMICAO #### [facility] [address] [place] [address] Honing Machine Operator Semiautomatic: Jameson Aaron MD Nitrite,Ur Negative Normal [facility] Comment on above: Performed By: #### U AX, UMICAO #### [facility] [address] [place] [address] Honing Machine Operator Semiautomatic: Jameson Aaron MD PH,Ur 5.5 Normal 5.0-9.0 [facility] Comment on above: Performed By: #### U AX, UMICAO #### [facility] [address] [place] [address] Honing Machine Operator Semiautomatic: Jameson Aaron MD Protein Ql (U) 2+ mg/dL Abnormal NEG [facility] Comment on above: Performed By: #### U AX, UMICAO #### [facility] [address] [place], [place] [address]83 Honing Machine Operator Semiautomatic: Jameson Aaron MD Spec. [place],Ur 1.025 High 1.010-1.020 [facility] Comment on above: Performed By: #### U AX UMICAO #### [facility] [address] [place], [place] 1769483 Honing Machine Operator Semiautomatic: Jameson Aaron MD Urobilinogen,Ur Normal Normal 0.0-1.0 [facility] Comment on above: Performed By: #### U AX, UMICAO #### [facility] [address] [place], [place] 6[address]83 Honing Machine Operator Semiautomatic: Jameson Aaron MD Urinalysis,Microon 4 Bacteria 2+ Abnormal NONE [facility] Comment on above: Performed By: #### U AX, UMICAO #### [address] [place], [place] 1378783 Honing Machine Operator Semiautomatic: Jameson Aaron MD Epithelial cells LM Ql (Urine sed) 0 TO [address] Comment on above: Performed By: #### U AX, UMICAO #### [facility] [address] [place] [address] Dr. [place], [place] 4139783 Honing Machine Operator Semiautomatic: Jameson Aaron MD Epithelial, Renal 0 TO 2 Normal 0 [facility] Comment on above: Performed By: #### U AX, UMICAO #### [facility] [address] [place] [address] Dr[place], [place] 2521283 Honing Machine Operator Semiautomatic: Jameson Aaron MD Urine RBC's 0 TO 2 Normal 0-2 [facility] Comment on above: Performed By: #### U AX, UMICAO #### [facility] [address] [place], [place] 4289683 Honing Machine Operator Semiautomatic: Jameson Aaron MD Urine WBC's 10 TO 20 Normal 0-[address] [place] [address] Comment on above: Performed By: #### U AX, UMICAO #### [facility] [address] [place] [address] Dr. [place], [place] 5137983 Honing Machine Operator Semiautomatic: Jameson Aaron MD Yeast PRESENCE NOTED Abnormal [facility] Comment on above: Performed By: #### U AX, UMJESSEO #### [facility] [address] [place] [address] Honing Machine Operator Semiautomatic: Jameson Aaron MD BLOOD UREA NITROGENon 2023 Urea nitrogen [Mass/Vol] 44 mg/dL High 5-27 [facility] Comment on above: Performed By: #### 3 3762-6, 309-0, FIRE COORDINATOR, ELEC #### [facility] ([id number]) [address] [place] [address] 49[address] #### 51313-0, HA1C #### [facility] ([id number]) [address], [address] [place] [address] CREATININEon 05-06-2023 Creatinine [Mass/Vol] 2.71 mg/dL High 0.70-1.20 [facility] Comment on above: Result Comment: METH OD TRACEABLE TO IDMS STANDARD Performed By: #### 3 3762-6, 3090, FIRE COORDINATOR, ELEC #### [facility] ([id number]) [address] [place] [address] 62138 #### 19971-2, HA1C #### [facility] ([id number]) [address] [facility], [address] [address] GFR/1.73 sq M.predicted among non-blacks MDRD (S/P/Bld) [Vol rate/Area] 26 mL/min/{1.73_m2} Low >59 [facility] Comment on above: Result Comment: Reported eGFR is based on the CKD-EPI 2020 equation that does not use a race coefficient. Performed By: #### 3 3762-6, 3094-0, FIRE COORDINATOR, ELEC #### [facility] ([id number]) [address] [place] [address] 14430 #### 67206-5, HA1C #### [facility] ([id number]) [address] [place] [address] ELECTROLYTESon 05-06-2023 Anion gap [Moles/Vol] 11 mmol/L Normal 5-15 [facility] Comment on above: Performed By: #### 3 3762-6, 3094-0, FIRE COORDINATOR, ELEC #### [facility] ([id number]) [address] [place] [address] 32990 #### 41276-2, HA1C #### [facility] ([id number]) [address] [facility], [address] [place] [address] Chloride [Moles/Vol] 101 mmol/L Normal 98-109 [facility] Comment on above: Performed By: #### 3 3762-6, 3094-0, FIRE COORDINATOR, ELEC #### [facility] ([id number]) [address] [place] [address] 64719 #### 59537-0, HA1C #### [facility] ([id number]) [address] [facility], [address] [place] [address] CO2 [Moles/Vol] 18 mmol/L Low 22-32 [facility] Comment on above: Performed By: #### 3 3762-6, 3094-0, FIRE COORDINATOR, ELEC #### [facility] ([id number]) [address] [place] [address] 36204 #### 66354-0, HA1C #### [facility] ([id number]) [address], [address] [place] [address] Potassium [Moles/Vol] 4.4 mmol/L Normal 3.5-5.0 [facility] Comment on above: Performed By: #### 3 3762-6, 3094-0, FIRE COORDINATOR, ELEC #### [facility] ([id number]) [address] [place] [address] 66772 #### 61131-3, HA1C #### [facility] ([id number]) [address] [place] [address], [address] [place] [address] Sodium [Moles/Vol] 130 mmol/L Low 134-146 [facility] Comment on above: Performed By: #### 3 3762-6, 3094-0, FIRE COORDINATOR, ELEC #### [facility] ([id number]) [address] [place] [address] 63036 #### 76625-3, HA1C #### [facility] ([id number]) [address] [place] [address], [address] [place] [address] HGB A1C (GLYCO-HGB)on 2023 Glucose [Mass/Vol] 260 mg/dL Normal [facility] Comment on above: Performed By: #### 1 988-5, CBCA, BMP, 92777-2 #### [facility] ([id number]) [address] [place] [address] 15395 #### 73387-8 #### [facility] ([id number]) [address] [place] [address], [facility] [address] [place] [address] HbA1c (Bld) [Mass fraction] 10.7 % High 4.4-5.6 [facility] Comment on above: Result Comment: NOTE ADA Guidelines Result HgbA1c Normal : less than 5.7 % Prediabetes : 5.7 % to 6.4 % Diabetes : > 6.4 % Use with caution in patients with abnormal hemoglobin variants as the half-life of red blood cells and in vivo glycation rates are affected. Performed By: #### 1 988-5, CBCA, BMP, 36158-3 #### [facility] ([id number]) [address] [place] [address] 71694 #### 82452-6 #### [facility] ([id number]) [address] [place] [address], [address] [place] [address] Lipid 1996 panelon 4 Cholesterol [Mass/Vol] 205 mg/dL High 150-200 [facility] Comment on above: Performed By: #### 3 3762-6, 3094-0, FIRE COORDINATOR, ELEC #### [facility] ([id number]) [address] [place] [address] #### 72935-2, HA1C #### [facility] ([id number]) [address], [address] [place] [address] Cholesterol in HDL [Mass/Vol] 35 mg/dL Low >39 [facility] Comment on above: Result Comment: HDL <40 mg/dL - High Risk HDL > or = 40mg/dL- Desirable HDL >60 mg/dL - Negative Risk Performed By: #### 3 3762-6, 3094-0, FIRE COORDINATOR, ELEC #### [facility] ([id number]) [address] [place] [address] 28934 #### 70665-2, HA1C #### [facility] ([id number]) [address], [address] [place] [address] Cholesterol in LDL [Mass/Vol] 120 mg/dL Normal <130 [facility] Comment on above: Result Comment: LDL <100 mg/dL - Desirable LDL >160 mg/dL - High Risk Performed By: #### 3 3762-6, 3094-0, FIRE COORDINATOR, ELEC #### [facility] ([id number]) [address] [place] [address] 69367 #### 01255-9, HA1C #### [facility] ([id number]) [address] [facility], [address] [place] [address] Cholesterol in VLDL [Mass/Vol] 50 mg/dL High 0-30 [facility] Comment on above: Performed By: #### 3 3762-6, 3094-0, FIRE COORDINATOR, ELEC #### [facility] ([id number]) [address] [place] [address] 12155 #### 29803-4, HA1C #### [facility] ([id number]) [address] [facility], [address] [place] [address] CHOLESTEROL:HDL 5.9 High 1.0-5.0 [facility] Comment on above: Performed By: #### 3 3762-6, 3094-0, FIRE COORDINATOR, ELEC #### [facility] ([id number]) [address] [place] [address] 17067 #### 16341-7, HA1C #### [facility] ([id number]) [address] [facility], [address] [place] [address] Triglyceride [Mass/Vol] 248 mg/dL High 27-150 [facility] Comment on above: Performed By: #### 3 3762-6, 3094-0, FIRE COORDINATOR, ELEC #### [facility] ([id number]) [address] [place] [address] 33936 #### 07916-8, HA1C #### [facility] ([id number]) [address] [place] [address], [address] [place] [address] MICROALBUMIN - ALBUMIN:CREAT ININE URINE RATIOon 05-06-2023 ALB/CREAT RATIO 2747.0 mg/g creat High 0.0-30.0 [facility] Comment on above: Performed By: #### 1 988-5, CBCA, BMP, 07710-2 #### [facility] ([id number]) [address] [place] [address] 08370 #### 69364-7 #### [facility] ([id number]) [address] [place] [address], [address] [place] [address] Albumin DL <= 20 mg/L (U) [Mass/Vol] 195.2 mg/dL High 0.0-1.9 [facility] Comment on above: Performed By: #### 1 988-5, CBCA, BMP, 82397-3 #### [facility] ([id number]) [address] [place] [address] 00196 #### 75243-3 #### [facility] ([id number]) [address] [place] [address], [address] [place] [address] URINE CREAT 71.06 mg/dL Normal [facility] Comment on above: Performed By: #### 1 988-5, CBCA, BMP, 11382-8 #### [facility] ([id number]) [address] [place] [address] 31639 #### 53135-1 #### [facility] ([id number]) [address] [place] [address], [address] [place] [address] Natriuretic peptide.B prohor adrianne N-Terminal [Mass/Vol]on 05-06-2023 NT Pro BNP See Below Normal [facility] Comment on above: Result Comment: NOTE TEST RESULT FLAG UNIT REF.RANGE ---- PRO B Natr Peptide 314 H pg/mL <125 Test Performed By: [facility] [employer] [address] [place] [address] Credit Card Analyst: Charlotte Hart III #[id number] Performed By: #### 1 988-5, CBCA, BMP, 39970-3 #### [facility] ([id number]) [address] [place] [address] 92746 #### 00248-4 #### [facility] ([id number]) [address] [facility], [address] [place] [address] URINALYSISon 05-06-2023 Bilirubin Ql (U) Negative Normal NEG [facility] Comment on above: Performed By: #### U A #### [facility] ([id number]) [address] [place] [address] BLOOD/HGB Trace Abnormal NEG [facility] Comment on above: Performed By: #### U A #### [facility] ([id number]) [address] [place] [address] 66807 Color (U) YELLOW Normal YELLOW [facility] Comment on above: Performed By: #### U A #### [facility] ([id number]) [address] [place] [address] 58900 Glucose Ql (U) >1000 Abnormal NEG [facility] Comment on above: Performed By: #### U A #### [facility] ([id number]) [address] [place] [address] 06391 Ketones Ql (U) Negative Normal NEG [facility] Comment on above: Performed By: #### U A #### [facility] ([id number]) [address] [place] [address] 45184 Leukocyte esterase Test strip Ql (U) Negative Normal NEG [facility] Comment on above: Result Comment: HIGH CONCENTRATIONS OF GLUCOSE MAY DECREASE THE REACTIVITY OF THE DIPSTICK LEUKOCYTE TEST PAD. Performed By: #### U A #### [facility] ([id number]) [address] [place] [address] 66070 MUCOUS PRESENT Abnormal NONE [facility] Comment on above: Performed By: #### U A #### [facility] ([id number]) [address] [place] [address] 05722 Nitrite Ql (U) Positive Abnormal NEG [facility] Comment on above: Performed By: #### U A #### [facility] ([id number]) [address] [place] [address] 90266 pH (U) 6.0 [pH] Normal 5.0-8.5 [facility] Comment on above: Performed By: #### U A #### [facility] ([id number]) [address] [place] [address] 75566 Protein Ql (U) >300 Abnormal NEG [facility] Comment on above: Performed By: #### U A #### [facility] ([id number]) [address] [place] [address] 25714 R.B.CELLS 5 /hpf Normal 0-5 [facility] Comment on above: Performed By: #### U A #### [facility] ([id number]) [address] [place] [address] 84945 Specific gravity (U) [Rel density] 1.015 Normal 1.003-1.035 [facility] Comment on above: Performed By: #### U A #### [facility] ([id number]) [address] [place] [address] 18934 SQUAMOUS EPITHELIUM 4 /hpf Normal 0-5 [facility] Comment on above: Performed By: #### U A #### [facility] ([id number]) [address] [place] [address] 46533 TURBIDITY HAZY Abnormal CLEAR [facility] Comment on above: Performed By: #### U A #### [facility] ([id number]) [address] [place] [address] 24935 Urobilinogen Qn (U) 0.2 {Chaya'U}/dL Normal <1.1 [facility] Comment on above: Performed By: #### U A #### [facility] ([id number]) [address] [place] [address] 15863 W.B.CELLS >100 High 0-5 [facility] Comment on above: Performed By: #### U A #### [facility] ([id number]) [address] [place] [address] 19993 URINE CULTUREon 05-06-2023 Bacteria identified Cx Nom (U) SPECIMEN NOTES URINE RECEIVED WITHOUT PRESERVATIVE CULTURE RESULTS MULTIPLE SPECIES PRESENT. PROBABLE COLLECTION CONTAMINATION. SUGGEST REPEAT SPECIMEN. URINE RECEIVED WITHOUT PRESERVATIVE-DELAYS IN TRANSPORT MAY AFFECT RESULTS.INTERPRET WITH CAUTION AND CLINICAL CORRELATION IS RECOMMENDED. Normal [facility] Comment on above: Performed By: #### 1 988-5, CBCA, BMP, 20997-3 #### [facility] ([id number]) [address] [place] [address] 06394 #### 96944-7 #### [facility] ([id number]) [address] [facility], [address] [place] [address] BASIC METABOLIC PANLon 04-19 Anion gap [Moles/Vol] 6 mmol/L Normal 5-15 [facility] Comment on above: Performed By: #### 1 988-5, CBCA, BMP, 09080-9 #### [facility] ([id number]) [address] [place] [address] 80162 #### 73216-8 #### [facility] ([id number]) [address] [facility], [address] [place] [address] Calcium [Mass/Vol] 8.6 mg/dL Normal 8.5-10.5 [facility] Comment on above: Performed By: #### 1 988-5, CBCA, BMP, 54532-7 #### [facility] ([id number]) [address] [place] [address] 05702 #### 77357-7 #### [facility] ([id number]) [address], [address] [place] [address] Chloride [Moles/Vol] 101 mmol/L Normal 98-109 [facility] Comment on above: Performed By: #### 1 988-5, CBCA, BMP, 04751-5 #### [facility] ([id number]) [address] [place] [address] 79448 #### 77768-1 #### [facility] ([id number]) [address] [facility], [address] [place] [address] CO2 [Moles/Vol] 19 mmol/L Low 22-32 [facility] Comment on above: Performed By: #### 1 988-5, CBCA, BMP, 09057-8 #### [facility] ([id number]) [address] [place] [address] 53647 #### 79911-6 #### [facility] ([id number]) [address] [facility], [address] [place] [address] Creatinine [Mass/Vol] 2.57 mg/dL High 0.70-1.20 [facility] Comment on above: Result Comment: METH OD TRACEABLE TO IDMS STANDARD Performed By: #### 1 988-5, CBCA, BMP, 31710-8 #### [facility] ([id number]) [address] [place] [address] 05070 #### 49982-1 #### [facility] ([id number]) [address], [address] [place] [address] GFR/1.73 sq M.predicted among non-blacks MDRD (S/P/Bld) [Vol rate/Area] 27 mL/min/{1.73_m2} Low >59 [facility] Comment on above: Result Comment: Reported eGFR is based on the CKD-EPI 2020 equation that does not use a race coefficient. Performed By: #### 1 988-5, CBCA, BMP, 35481-7 #### [facility] ([id number]) [address] [place] [address] 05879 #### 32741-9 #### [facility] ([id number]) [address] [facility], [address] [place] [address] Glucose [Mass/Vol] 377 mg/dL High 65-99 [facility] Comment on above: Performed By: #### 1 988-5, CBCA, BMP, 99923-6 #### [facility] ([id number]) [address] [place] [address] 207[address] #### [id number] #### [facility] ([id number]) [address], [address] [place] [address] Potassium [Moles/Vol] 4.2 mmol/L Normal 3.5-5.0 [facility] Comment on above: Performed By: #### 1 988-5, CBCA, BMP, 58670-6 #### [facility] ([id number]) [address] [place] [address] 27980 #### 90333-3 #### [facility] ([id number]) [address] [address], [address] [place] [address] Sodium [Moles/Vol] 126 mmol/L Low 134-146 [facility] Comment on above: Performed By: #### 1 988-5, CBCA, BMP, 42960-5 #### [facility] ([id number]) [address] [place] [address] 59346 #### [id number] #### [facility] ([id number]) [address], [address] [place] [address] Urea nitrogen [Mass/Vol] 30 mg/dL High 5-27 [facility] Comment on above: Performed By: #### 1 988-5, CBCA, BMP, 95605-0 #### [facility] ([id number]) [address] [place] [address]1007 #### [id number] #### [facility] ([id number]) [address], [address] [place] [address] CBC AND AUTO DIFFon 04-19- 23 ABSOLUTE BASOPHIL 0.1 X10E9/L Normal 0.0-0.2 [facility] Comment on above: Performed By: #### 1 988-5, CBCA, BMP, 13516-8 #### [facility] ([id number]) [address] [place] [address] 55817 #### [id number] #### [facility] ([id number]) [address], [address] [place] [address] ABSOLUTE NEUTROPHIL 8.8 X10E9/L High 1.5-6.6 [facility] Comment on above: Performed By: #### 1 988-5, CBCA, BMP, 70081-7 #### [facility] ([id number]) [address] [place] [address] 9[address] #### 90621-6 #### [facility] ([id number]) [address], [address] [place] [address] Basophils/100 WBC (Bld) 0.5 % Normal [facility] Comment on above: Performed By: #### 1 988-5, CBCA, BMP, 02789-2 #### [facility] ([id number]) [address] [place] [address] 93560 #### 53853-9 #### [facility] ([id number]) [address], [address] [place] [address] Eosinophils (Bld) [#/Vol] 0.3 10*3/uL Normal 0.0-0.4 [facility] Comment on above: Performed By: #### 1 988-5, CBCA, BMP, 26872-2 #### [facility] ([id number]) [address] [place] [address] 72759 #### 57890-0 #### [facility] ([id number]) [address] [place] [address], [facility] [address] [place] [address] Eosinophils/100 WBC (Bld) 2.6 % Normal [facility] Comment on above: Performed By: #### 1 988-5, CBCA, BMP, 98860-5 #### [facility] ([id number]) [address] [place] [address] 12040 #### 44979-3 #### [facility] ([id number]) [address] [place] [address], [address] [place] [address] Erythrocyte distribution width (RBC) [Ratio] 15.5 % High 11.5-15.0 [facility] Comment on above: Performed By: #### 1 988-5, CBCA, BMP, 66029-6 #### [facility] ([id number]) [address] [place] [address] 57347 #### 06297-5 #### [facility] ([id number]) [address] [place] [address], [address] [place] [address] Hematocrit (Bld) [Volume fraction] 36.8 % Low 39-49 [facility] Comment on above: Performed By: #### 1 988-5, CBCA, BMP, 48966-5 #### [facility] ([id number]) [address] [place] [address] [place] [address] #### 14949-5 #### [facility] ([id number]) [address], [address] [place] [address] Hemoglobin (Bld) [Mass/Vol] 12.0 g/dL Low 13.0-17.0 [facility] Comment on above: Performed By: #### 1 988-5, CBCA, BMP, 35593-3 #### [facility] ([id number]) [address] [place] [address] 61282 #### 80856-4 #### [facility] ([id number]) [address], [address] [place] [address] Lymphocytes (Bld) [#/Vol] 1.9 10*3/uL Normal 1.0-3.5 [facility] Comment on above: Performed By: #### 1 988-5, CBCA, BMP, 10823-1 #### [facility] ([id number]) [address] [place] [address] 07945 #### [id number] #### [facility] ([id number]) [address], [address] [place] [address] Lymphocytes/100 WBC (Bld) 15.1 % Normal [facility] Comment on above: Performed By: #### 1 988-5, CBCA, BMP, 51233-3 #### [facility] ([id number]) [address] [place] [address] 28923 #### 69068-9 #### [facility] ([id number]) [address], [address] [place] [address] MCH (RBC) [Entitic mass] 28.2 pg Normal 27-34 [facility] Comment on above: Performed By: #### 1 988-5, CBCA, BMP, 12756-1 #### [facility] ([id number]) [address] [place] [address] 13441 #### 71148-0 #### [facility] ([id number]) [address], [address] [place] [address] MCHC (RBC) [Mass/Vol] 32.7 g/dL Normal 32-36 [facility] Comment on above: Performed By: #### 1 988-5, CBCA, BMP, 80043-7 #### [facility] ([id number]) [address] [place] [address] 05378 #### 97030-8 #### [facility] ([id number]) [address], [address] [place] [address] MCV (RBC) [Entitic vol] 86 fL Normal 80-100 [facility] Comment on above: Performed By: #### 1 988-5, CBCA, BMP, 89258-0 #### [facility] ([id number]) [address] [place] [address] 83342 #### 10145-0 #### [facility] ([id number]) [address], [address] [place] [address] Monocytes (Bld) [#/Vol] 1.4 10*3/uL High 0-0.9 [facility] Comment on above: Performed By: #### 1 988-5, CBCA, BMP, 17863-7 #### [facility] ([id number]) [address] [place] [address] 20800 #### 82072-9 #### [facility] ([id number]) [address], [address] [place] [address] Monocytes/100 WBC (Bld) 11.2 % Normal [facility] Comment on above: Performed By: #### 1 988-5, CBCA, BMP, 27730-3 #### [facility] ([id number]) [address] [place] [address] 71625 #### 03020-8 #### [facility] ([id number]) [address], [address] [place] [address] Neutrophils/100 WBC (Bld) 70.6 % Normal [facility] Comment on above: Performed By: #### 1 988-5, CBCA, BMP, 88482-4 #### [facility] ([id number]) [address] [place] [address] 07248 #### 95748-9 #### [facility] ([id number]) [address] [address], [address] [place] [address] Platelet mean volume (Bld) [Entitic vol] 7.6 fL Normal 7-12 [facility] Comment on above: Performed By: #### 1 988-5, CBCA, BMP, 81890-6 #### [facility] ([id number]) [address] [place] [address] 88995 #### 41395-0 #### [facility] ([id number]) [address], [address] [place] [address] Platelets (Bld) [#/Vol] 325 10*3/uL Normal 150-450 [facility] Comment on above: Performed By: #### 1 988-5, CBCA, BMP, 18951-4 #### [facility] ([id number]) [address] [place] [address] 54547 #### 52151-3 #### [facility] ([id number]) [address] [address] [facility], [address] [place] [address] RBC COUNT 4.27 X10E12/L Normal 4.10-5.70 [facility] Comment on above: Performed By: #### 1 988-5, CBCA, BMP, 62013-9 #### [facility] ([id number]) [address] [place] [address] 81030 #### 09423-9 #### [facility] ([id number]) [address], [address] [place] [address] WBC (Bld) [#/Vol] 12.5 10*3/uL High 4.0-11.0 [facility] Comment on above: Performed By: #### 1 988-5, CBCA, BMP, 87707-4 #### [facility] ([id number]) [address] [place] [address] 90118 #### 79046-2 #### [facility] ([id number]) [address], [address] [place] [address] CRP [Mass/Vol]on 04-19-2023 C REACTIVE PROTEIN 7.8 mg/dL High 0.000-0.744 [facility] Comment on above: Performed By: #### 1 988-5, CBCA, BMP, 19785-9 #### [facility] ([id number]) [address] [place] [address] 29670 #### 87233-3 #### [facility] ([id number]) [address], [address] [place] [address] ESR Photometric method (Bld) [Velocity]on 04-19-2023 ESR, ERYTHROCYTE SEDIMENTATION RATE 115 mm/h High 0-20 [facility] Comment on above: Performed By: #### 1 988-5, CBCA, BMP, 95917-4 #### [facility] ([id number]) [address] [place] [address] 91652 #### 17413-1 #### [facility] ([id number]) [address], [address] [place] [address] Natriuretic peptide.B prohor adrianne N-Terminal [Mass/Vol]on 04-19-2023 NT Pro BNP See Below Normal [facility] Comment on above: Result Comment: NOTE TEST RESULT FLAG UNIT REF.RANGE ---- PRO B Natr Peptide 587 H pg/mL <125 Test Performed By: [facility] [employer] [address] [place] [address] Credit Card Analyst: Tyler Valle III, M.D. CLIA #[id number] Performed By: #### 1 988-5, CBCA, BMP, 42316-0 #### [facility] ([id number]) [address] [place] [address], [place] [address] #### 29421-6 #### [facility] ([id number]) [address] [place] [address], [address] [place] [address] Basic Metabolic Profon 02-27 Anion gap [Moles/Vol] 11 mmol/L Normal 01-13 [facility] Comment on above: Performed By: #### S ED, CRP, BMP, CDP #### [facility] [address] [place] [address] [employer]ing Machine Operator [employer]: Jameson Aaron MD BUN/CRE Ratio 16 Normal 01-16 [facility] Comment on above: Performed By: #### S ED, CRP, BMP, CDP #### [facility] [address] [place] [address] [employer]ing Machine Operator [employer]: Jameson Aaron MD Calcium [Mass/Vol] 9.4 mg/dL Normal 8.6-10.4 [facility] Comment on above: Performed By: #### S ED, CRP, BMP, CDP #### [facility] [address] [place] [address] [employer]ing Machine Operator [employer]: Jameson Aaron MD Chloride [Moles/Vol] 98 mmol/L Normal 98-107 [facility] Comment on above: Performed By: #### S ED, CRP, BMP, CDP #### [facility] [address] [place], [place] [address] [employer] Operator [employer]: Jameson Aaron MD CO2 [Moles/Vol] 18 mmol/L Low 20-31 [facility] Comment on above: Performed By: #### S ED, CRP, BMP, CDP #### [facility] [address] [place] [address] [employer]ing Machine Operator [employer]: Jameson Aaron MD Creatinine [Mass/Vol] 2.7 mg/dL High 0.7-1.2 [facility] Comment on above: Performed By: #### S ED, CRP, BMP, CDP #### [facility] [address] [place], [facility]83 [employer]: Jameson Aaron MD GFR/1.73 sq M.predicted among non-blacks MDRD (S/P/Bld) [Vol rate/Area] 26 mL/min/{1.73_m2} Low >60 [facility] Comment on above: Result Comment: These results [...] #### S ED, CRP, BMP, CDP #### [facility] [address] [place] [address] Honing Machine Operator [employer]: Jameson Aaron MD Glucose [Mass/Vol] 268 mg/dL High 70-99 [facility] Comment on above: Performed By: #### S ED, CRP, BMP, CDP #### [facility] [address] [place], [place] [address] [employer] Operator [employer]: Jameson Aaron MD Potassium [Moles/Vol] 5.2 mmol/L Normal 3.7-5.3 [facility] Comment on above: Performed By: #### S ED, CRP, BMP, CDP #### [facility] [address] [place], [facility]83 [employer]: Jameson Aaron MD Sodium [Moles/Vol] 127 mmol/L Low 135-144 [facility] Comment on above: Performed By: #### S ED, CRP, BMP, CDP #### [address] [place], [facility]83 [employer]ing Machine Operator [employer]emia[employer]: Jameson Aaron MD Urea nitrogen [Mass/Vol] 44 mg/dL High 8-23 [facility] Comment on above: Performed By: #### S ED, CRP, BMP, CDP #### [address] [place], [facility]83 [employer] Machine Operator [employer]emia[employer]: Jameson Aaron MD C-Reactive Proteinon 023 CRP [Mass/Vol] 131.1 mg/L High 0.0-5.0 [facility] Comment on above: Performed By: #### S ED, CRP, BMP, CDP #### [address] [place], [place] [address] [employer] Operator [employer]: Jameson Aaron MD CBC with Diffon 02-27-2023 Abs. Basophil 0.06 k/uL Normal 0.00-0.20 [facility] Comment on above: Performed By: #### S ED, CRP, BMP, CDP #### [address] [place], [facility]83 [employer]ing Machine Operator [employer]emia[employer]: Jameson Aaron MD Abs.Imm.Granulocyte 0.11 k/uL Normal 0.00-0.30 [facility] Comment on above: Performed By: #### S ED, CRP, BMP, CDP #### [address] [place], [place] [address] [employer]ing Machine Operator [employer]emia[employer]: Jameson Aaron MD Abs.Neutrophil (Seg) 6.83 k/uL Normal 1.50-8.10 [facility] Comment on above: Performed By: #### S ED, CRP, BMP, CDP #### [address] [place], [place] [address] [employer]ing Machine Operator [employer]emia[employer]: Jameson Aaron MD Basophils/100 WBC (Bld) 1 % Normal 0-2 [facility] Comment on above: Performed By: #### S ED, CRP, BMP, CDP #### [address] [place], [facility]83 Honing Machine Operator [employer]emia[employer]: Jameson Aaron MD Eosinophils (Bld) [#/Vol] 0.22 10*3/uL Normal 0.00-0.44 [facility] Comment on above: Performed By: #### S ED, CRP, BMP, CDP #### [address] [place], [place] [address] Honing Machine Operator Semia[employer]: Jameson Aaron MD Eosinophils/100 WBC (Bld) 2 % Normal 1-4 [facility] Comment on above: Performed By: #### S ED, CRP, BMP, CDP #### [address] [place], [facility]83 [employer]ing Machine Operator [employer]emia[employer]: Jameson Aaron MD Erythrocyte distribution width (RBC) [Ratio] 14.6 % High 11.8-14.4 [facility] Comment on above: Performed By: #### S ED, CRP, BMP, CDP #### [address] [place] [id number] [employer]ing Machine Operator [employer]emia[employer]: Jameson Aaron MD Hematocrit (Bld) [Volume fraction] 41.9 % Normal 40.7-50.3 [facility] Comment on above: Performed By: #### S ED, CRP, BMP, CDP #### [place] [address] [place] [address] Honing Machine Operator [employer]: Jameson Aaron MD Hemoglobin (Bld) [Mass/Vol] 13.2 g/dL Normal 13.0-17.0 [facility] Comment on above: Performed By: #### S ED, CRP, BMP, CDP #### [facility] [address] [place], [place] [address] [employer] Operator [employer]: Jameson Aaron MD Immature granulocytes/100 WBC (Bld) 1 % High 0 [facility] Comment on above: Performed By: #### S ED, CRP, BMP, CDP #### [facility] [address] [place] [address] Honing Machine Operator [employer]emia[employer]: Jameson Aaron MD Lymphocytes (Bld) [#/Vol] 1.83 10*3/uL Normal 1.10-3.70 [facility] Comment on above: Performed By: #### S ED, CRP, BMP, CDP #### [address] [place], [place] [address]369283 Honing Machine Operator [employer]emia[employer]: Jameson Aaron MD Lymphocytes/100 WBC (Bld) 18 % Low 24-43 [facility] Comment on above: Performed By: #### S ED, CRP, BMP, CDP #### [address] [place] [address] Honing Machine Operator [employer]emia[employer]omatic: Jameson Aaron MD MCH (RBC) [Entitic mass] 28.2 pg Normal 25.2-33.5 [facility] Comment on above: Performed By: #### S ED, CRP, BMP, CDP #### [facility] [address] [place] [address] Honing Machine Operator [employer]emia[employer]omatic: Jameson Aaron MD MCHC (RBC) [Mass/Vol] 31.5 g/dL Normal 28.4-34.8 [facility] Comment on above: Performed By: #### S ED, CRP, BMP, CDP #### [facility] [address] [place], [place] 3950383 Honing Machine Operator Semiautomatic: Jameson Aaron MD MCV (RBC) [Entitic vol] 89.5 fL Normal 82.6-102.9 [facility] Comment on above: Performed By: #### S ED, CRP, BMP, CDP #### [facility] [address] [place], [place] [address] Honing Machine Operator [employer]emia[employer]omatic: Jameson Aaron MD Monocytes (Bld) [#/Vol] 1.42 10*3/uL High 0.10-1.20 [facility] Comment on above: Performed By: #### S ED, CRP, BMP, CDP #### [address] [place], [facility]83 Honing Machine Operator Semiautomatic: Jameson Aaron MD Monocytes/100 WBC (Bld) 14 % High 3-12 [facility] Comment on above: Performed By: #### S ED, CRP, BMP, CDP #### [address] [place], [facility]83 Honing Machine Operator Semiautomatic: Jameson Aaron MD Neutrophil (Seg) 64 % Normal 36-65 [facility] Comment on above: Performed By: #### S ED, CRP, BMP, CDP #### [address] [place], [facility]83 Honing Machine Operator Semiautomatic: Jameson Aaron MD NRBC Automated 0.0 per 100 WBC Normal 0.0 [facility] Comment on above: Performed By: #### S ED, CRP, BMP, CDP #### [facility] [address] [place], [place] [address]83 Honing Machine Operator Semiautomatic: Jameson Aaron MD Platelet mean volume (Bld) [Entitic vol] 9.4 fL Normal 8.1-13.5 [facility] Comment on above: Performed By: #### S ED, CRP, BMP, CDP #### [address] [place], [facility]83 Honing Machine Operator Semiautomatic: Jameson Aaron MD Platelets (Bld) [#/Vol] 266 10*3/uL Normal 138-453 [facility] Comment on above: Performed By: #### S ED, CRP, BMP, CDP #### [facility] [address] [place], [place] [address]83 Honing Machine Operator Semiautomatic: Jameson Aaron MD RBC (Bld) [#/Vol] 4.68 10*6/uL Normal 4.21-5.77 [facility] Comment on above: Performed By: #### S ED, CRP, BMP, CDP #### [facility] [address] [place], [place] [phone] Honing Machine Operator Semia[employer]omatic: Jameson Aaron MD WBC (Bld) [#/Vol] 10.5 10*3/uL Normal 3.5-11.3 [facility] Comment on above: Performed By: #### S ED, CRP, BMP, CDP #### [facility] [address] [place], [place] [address] Honing Machine Operator Semia[employer]omatic: Jameson Aaron MD Sedimentation Rateon 023 Sedimentation Rate 114 mm/Hr High 0-20 [facility] Comment on above: Performed By: #### S ED, CRP, BMP, CDP #### [address] [place], [place] [address]783 Honing Machine Operator Semiautomatic: Jameson Aaron MD FUNGAL CULTUREon 09-21-2022 Fungus (Mycology) Culture Final report Abnormal [facility] Comment on above: Performed By: #### C XFUN ####[facility] [id number] [place] [id number]. Eddie Lerner Fungus Stain Final report Normal [facility] Comment on above: Performed By: #### C XFUN ####[facility] [id number] [place], [place] [address]Nq. Eddie Lerner Result 1 Comment Normal [facility] Comment on above: Result Comment: ANNEMARIE/ Calcofluor preparation: no fungus observed. Performed By: #### C XFUN ####[facility] [id number] [place] [id number]. Eddie Lerner Result 1 Rosy albicans Abnormal [facility] Comment on above: Performed By: #### C XFUN ####[facility] [id number] [place], [place] [address]Oa. Eddie Lerner CULTURE OTHERon 08-23-2022 CULTURE OTHER Isolate 1 Enterococcus faecalis Light growth of ORGANISM 1 Enterococcus faecalis ANTIBIOTIC M.I.C RX STATUS Beta-Lactamase Neg NEG F Benzylpenicillin 0.5 S F Ampicillin <=2 S F Gentamicin High Level (synergy) SYN-R R F Streptomycin High Level (synergy) SYN-S S F Quinupristin/Dalfopristin 4 R F Linezolid 1 S F Vancomycin 1 S F Normal [facility] Comment on above: Performed By: #### O THCX ####[facility] [id number] [place] [address]Dr. Eddie Lerner ACID FAST SMEAR AND CXon Acid Fast Smear Negative Normal [facility] Comment on above: Performed By: #### A FB ####[facility] [id number] [place] [address]Dr. Eddie Lerner [employer] Specimen Processing Tissue Grinding Normal [facility] Comment on above: Performed By: #### A FB ####[facility] [id number] [place] [id number]. Eddie Lerner BNPon 08-20-2022 Natriuretic peptide B (Bld) [Mass/Vol] 648.0 pg/mL Normal <=900.0 [facility] Comment on above: Performed By: #### A 1C #### [facility] [address] [place] [address] [address] Eddie Lerner CULTURE ANAEROBICon 08-21-19 CULTURE ANAEROBIC Culture Observations : NO GROWTH OF ANAEROBES AT 72 HOURS. Normal [facility] Comment on above: Performed By: #### A NACX ####[facility] [facility] [address] [address]DrVaishali Lerner GLYCOHEMOGLOBIN A1Con 2022 ADA RECOMMENDATION SEE BELOW Normal [facility] Comment on above: Result Comment: ADA RECOMMENDED LIMIT 4.0 - 6.0 ADA THERAPEUTIC TARGET < 7.0 ACTION SUGGESTED > 7.0 Performed By: #### R ENAL, LIPID, LIVER, TSH #### [facility] [address] [address] [address] Eddie Lerner Glucose [Mass/Vol] 235 mg/dL Normal [facility] Comment on above: Performed By: #### R ENAL, LIPID, LIVER, TSH #### [facility] [address] [address] [address] Eddie Lerner HbA1c (Bld) [Mass fraction] 9.8 % Critically high 4.5-6.2 [facility] Comment on above: Performed By: #### R ENAL, LIPID, LIVER, TSH #### [facility] [address] [address] [address] Eddie Lerner GRAM STAINon 08-20-2022 COMMENTS NO ORGANISMS OBSERVED Normal [facility] Comment on above: Performed By: #### G STAIN ####[facility] [address] [address]Dr. Eddie Lerner DIPHTHEROIDS Normal [facility] Comment on above: Performed By: #### G STAIN ####[facility] [address] [address]Dr. Eddie Lerner EPITHELIALS Normal [facility] Comment on above: Performed By: #### G STAIN ####[facility] [address] [address]Dr. Eddie Lerner FUNGAL ELEMENTS Normal [facility] Comment on above: Performed By: #### G STAIN ####[facility] [address] [address]Dr. Eddie Lerner GRAM NEG BACILLI Normal [facility] Comment on above: Performed By: #### G STAIN ####[facility] [address] [address]Dr. Eddie Lerner GRAM NEG DIPPLOCOCCI Normal [facility] Comment on above: Performed By: #### G STAIN ####[facility] [address] [address]Dr. Eddie Lerner GRAM POS BACILLI Normal [facility] Comment on above: Performed By: #### G STAIN ####[facility] [address] [address]Dr. Eddie Lerner GRAM POSITIVE COCCI Normal [facility] Comment on above: Performed By: #### G STAIN ####[facility] [address] [address]Dr. Eddie Lerner GRAM STAIN SOURCE Lt Foot Bone Normal [facility] Comment on above: Performed By: #### G STAIN ####[facility] [address] [address]Dr. Eddie Lerner GS_DIPTH Normal [facility] Comment on above: Performed By: #### G STAIN ####[facility] [address] [address]Dr. Eddie Lerner WBC RARE Normal [facility] Comment on above: Performed By: #### G STAIN ####[facility] [address] [address]Dr. Eddie Lerner LIPID PROFILEon 08-20-2022 CHOL-HDL RATIO NORM SEE BELOW Normal [facility] Comment on above: Result Comment: 3.3 - 4.4 LOW RISK 4.4 - 7.1 AVERAGE RISK 7.1 - 11.0 MODERATE RISK >11.0 HIGH RISK Performed By: #### A 1C #### [facility] [address] [address] [address] Eddie Lerner Cholesterol [Mass/Vol] 137 mg/dL Normal <=200 [facility] Comment on above: Performed By: #### A 1C #### [facility] [address] [address] [address] Eddie Lerner Cholesterol in HDL [Mass/Vol] 54 mg/dL Normal 40-60 [facility] Comment on above: Performed By: #### A 1C #### [facility] [address] [address] [address] Eddie Lerner Cholesterol in LDL [Mass/Vol] 63.2 mg/dL Normal [facility] Comment on above: Performed By: #### A 1C #### [facility] [address] [address] [address] Eddie Lerner Cholesterol.total/C holesterol in HDL [Mass ratio] 2.5 {ratio} Normal [facility] Comment on above: Performed By: #### A 1C #### [facility] [address] [address] [address] Eddie Lerner HDL NORMAL > or = 60 mg/dl - LO W CARDIOVASCULAR RISK <40 mg/dl - HIGH CARDIOVASCULAR RISK Normal [facility] Comment on above: Performed By: #### A 1C #### [facility] [address] [address] [address] Eddie Lerner LDL CALC NORMAL SEE BELOW Normal [facility] Comment on above: Result Comment: <100 mg/dl OPTIMAL 100 - 129 mg/dl NEAR OR ABOVE OPTIMAL 130 - 159 mg/dl BORDERLINE HIGH 160 - 189 mg/dl HIGH >190 mg/dl VERY HIGH Performed By: #### A 1C #### [facility] [address] [address] [address] Eddie Lerner Triglyceride [Mass/Vol] 99 mg/dL Normal <=150 [facility] Comment on above: Performed By: #### A 1C #### [facility] [address] [address] [address] Eddie Lerner VLDL CALC 19.8 mg/dL Normal [facility] Comment on above: Performed By: #### A 1C #### [facility] [address] [address] [address] Eddie Lerner LIVER PROFILEon 08-20-2022 Albumin [Mass/Vol] 2.8 g/dL Critically low 3.4-5.0 [facility] Comment on above: Performed By: #### A 1C #### [facility] [address] [address] [address] Eddie Lerner Albumin/Globulin [Mass ratio] 0.6 {ratio} Normal [facility] Comment on above: Performed By: #### A 1C #### [facility] [address] [address] [address] Eddie Lerner ALP [Catalytic activity/Vol] 87 U/L Normal 46-116 [facility] Comment on above: Performed By: #### A 1C #### [facility] [address] [address] [address] Eddie Lerner ALT [Catalytic activity/Vol] 49 U/L Normal 16-63 [facility] Comment on above: Performed By: #### A 1C #### [facility] [address] [address] [address] Eddie Lerner AST [Catalytic activity/Vol] 36 U/L Normal 15-37 [facility] Comment on above: Performed By: #### A 1C #### [facility] [address] [address] [address] Eddie Lerner BILI, CONJUGATED 0.1 mg/dL Normal 0.0-0.2 [facility] Comment on above: Performed By: #### A 1C #### [facility] [address] [place] [address] Dr. Eddie Lerner Bilirubin [Mass/Vol] 0.4 mg/dL Normal 0.2-1.0 [facility] Comment on above: Performed By: #### A 1C #### [facility] [address] [place] [address] Dr. Eddie Lerner Globulin (S) [Mass/Vol] 4.4 g/dL Normal [facility] Comment on above: Performed By: #### A 1C #### [facility] [address] [address] [address] Eddie Lerner Protein [Mass/Vol] 7.2 g/dL Normal 6.4-8.2 [facility] Comment on above: Performed By: #### A 1C #### [facility] [address] [place] [address] Dr. Eddie Lerner POINT OF CARE GLUCOSEon 07-29 Glucose [Mass/Vol] 107 mg/dL Critically high 74-106 [facility] Comment on above: Performed By: #### P OCGLUC #### [facility] [address] [address] [address] Eddie Lerner Glucose [Mass/Vol] 108 mg/dL Critically high 74-106 [facility] Comment on above: Performed By: #### P OCGLUC ####[facility] [address] [address]Dr. Eddie Lerner TSHon 08-20-2022 TSH 2.247 uIU/mL Normal 0.358-3.740 [facility] Comment on above: Performed By: #### A 1C #### [facility] [address] [address] [address] Eddie Lerner CBC AUTO DIFFon 08-15-2022 BASO # 0.0 103/ul Normal 0.0-0.1 [facility] Comment on above: Performed By: #### C BC ####[facility] [address] [address]Dr. Eddie Lerner Basophils/100 WBC (Bld) 0.4 % Normal 0.2-2.0 [facility] Comment on above: Performed By: #### C BC ####[facility] [address] [place], [place] [address]Dr. Eddie Lerner EO # 0.2 103/ul Normal 0.0-0.7 [facility] Comment on above: Performed By: #### C BC ####[facility] [address] [place], [place] [address]Dr. Eddie Lerner Eosinophils/100 WBC (Bld) 2.0 % Normal 0.9-7.0 [facility] Comment on above: Performed By: #### C BC ####[facility] [address] [place], [place] [address]Dr. Eddie Lerner Erythrocyte distribution width (RBC) [Ratio] 14.5 % Normal 11.0-15.0 [facility] Comment on above: Performed By: #### C BC ####[facility] [address] [place], [place] [address]Dr. Eddie Lerner Hematocrit (Bld) [Volume fraction] 40.5 % Critically low 42.0-54.0 [facility] Comment on above: Performed By: #### C BC ####[facility] [address] [place], [place] [address]DrVaishali Lerner Hemoglobin (Bld) [Mass/Vol] 13.1 g/dL Critically low 14.0-18.0 [facility] Comment on above: Performed By: #### C BC ####[facility] [address] [address]DrVaishali Lerner IG # 0.12 10e3/ul Critically high 0.00-0.03 [facility] Comment on above: Performed By: #### C BC ####[facility] [address] [address]DrVaishali Lerner IG % 1.2 % Critically high 0.0-0.5 [facility] Comment on above: Performed By: #### C BC ####[facility] [address] [place], [place] [address]DrVaishali Lerner LYMPH # 1.4 103/ul Normal 1.2-3.8 [facility] Comment on above: Performed By: #### C BC ####[facility] [address] [place], [place] [address]DrVaishali Lerner Lymphocytes/100 WBC (Bld) 13.6 % Critically low 20.5-60.0 [facility] Comment on above: Performed By: #### C BC ####[facility] [address] [place], [place] [address]DrVaishali Lerner MANUAL DIFF REQ NO Normal [facility] Comment on above: Performed By: #### C BC ####[facility] [address] [place], [place] [address]DrVaishali Lerner MCH (RBC) [Entitic mass] 29.8 pg Normal 25.9-34.0 [facility] Comment on above: Performed By: #### C BC ####[facility] [address] [address]DrVaishali Lerner MCHC (RBC) [Mass/Vol] 32.3 g/dL Normal 29.9-35.2 [facility] Comment on above: Performed By: #### C BC ####[facility] [address] [address]DrVaishali Lerner MCV (RBC) [Entitic vol] 92.0 fL Normal 80.0-94.0 [facility] Comment on above: Performed By: #### C BC ####[facility] [address] [address]DrVaishali Eddie Yann MONO # 0.5 103/ul Normal 0.3-0.8 [facility] Comment on above: Performed By: #### C BC ####[facility] [address] [address]DrVaishali Lerner Monocytes/100 WBC (Bld) 4.8 % Normal 1.7-12.0 [facility] Comment on above: Performed By: #### C BC ####[facility] [address] [place], [place] [address]DrVaishali Lamaquincy Yann NEUT # 8.1 103/ul Critically high 1.4-6.5 [facility] Comment on above: Performed By: #### C BC ####[facility] [address] [place], [place] [address]DrVaishali Lerner Neutrophils/100 WBC (Bld) 78.0 % Critically high 43.0-75.0 [facility] Comment on above: Performed By: #### C BC ####[facility] [address] [place], [place] [address]DrVaishali Dainaquincy Lerner Platelet mean volume (Bld) [Entitic vol] 8.6 fL Critically low 9.5-13.5 [facility] Comment on above: Performed By: #### C BC ####[facility] [address] [place], [place] [address]DrVaishali Lerner PLT 240 103/ul Normal 150-450 [facility] Comment on above: Performed By: #### C BC ####[facility] [address] [place], [place] [address]DrVaishali Lerner RBC 4.40 106/ul Critically low 4.70-6.10 [facility] Comment on above: Performed By: #### C BC ####[facility] [address] [place], [place] [address]DrVaishali Lerner WBC 10.3 103/ul Normal 4.0-11.0 [facility] Comment on above: Performed By: #### C BC ####[facility] [address] [address]Dr. Eddie Lerner CRPon 08-15-2022 CRP [Mass/Vol] mg/L Normal <=1.0 [facility] Comment on above: Performed By: #### A 1C #### [facility] [address] [address] [address] Eddie Lerner PROF CHEM 8 (BAS METB)on Anion gap [Moles/Vol] 14.4 mmol/L Normal [facility] Comment on above: Performed By: #### A 1C #### [facility] [address] [place] [address] Dr. Eddie Lerner Calcium [Mass/Vol] 9.2 mg/dL Normal 8.5-10.1 [facility] Comment on above: Performed By: #### A 1C #### [facility] [address] [place] [address] Dr. Eddie Lerner Chloride [Moles/Vol] 101 mmol/L Normal 98-107 [facility] Comment on above: Performed By: #### A 1C #### [facility] [address] [place] [address] Dr. Eddie Lerner CO2 [Moles/Vol] 25.2 mmol/L Normal 21.0-32.0 [facility] Comment on above: Performed By: #### A 1C #### [facility] [address] [address] [address] Eddie Lerner Creatinine [Mass/Vol] 3.07 mg/dL Critically high 0.70-1.30 [facility] Comment on above: Performed By: #### A 1C #### [facility] [address] [place] [address] Dr. Eddie Lerner EGFR-AF SAO TOMEAN 25 mL/min/1.73m2 Critically low >=60 [facility] Comment on above: Performed By: #### A 1C #### [facility] [address] [place] [address] Dr. Eddie Lerner EGFR-NON AF SAO TOMEAN 21 mL/min/1.73m2 Critically low >=60 [facility] Comment on above: Performed By: #### A 1C #### [facility] [address] [address] [address] Eddie Lerner Glucose [Mass/Vol] 415 mg/dL Critically high 74-[address] [facility] Comment on above: Performed By: #### A 1C #### [facility] [address] [address] [address] Eddie Lerner Potassium [Moles/Vol] 5.6 mmol/L Critically high 3.5-5.1 [facility] Comment on above: Performed By: #### A 1C #### [facility] [address] [address] [address] Eddie Lerner Sodium [Moles/Vol] 135 mmol/L Critically low 136-145 [facility] Comment on above: Performed By: #### A 1C #### [facility] [address] [address] [address] Eddie Lerner Urea nitrogen [Mass/Vol] 34.0 mg/dL Critically high 7.0-18.0 [facility] Comment on above: Performed By: #### A 1C #### [facility] [address] [place] [address] Dr. Eddie Lerner Urea nitrogen/Creatinine [Mass ratio] 11.1 mg/mg Normal [facility] Comment on above: Performed By: #### A 1C #### [facility] [address] [address] [address] Eddie Lerner SED RATE [place] VILL[place] 2022 SED RATE 59 mm/hr Critically high <=20 [facility] Comment on above: Performed By: #### S EDR ####[facility] [address] [place], [place] [address]Dr. Eddie Lerner BNPon 06-06-2022 Natriuretic peptide B (Bld) [Mass/Vol] 1342.0 pg/mL Critically high <=900.0 [facility] Comment on above: Performed By: #### B WICK TENDER ####[facility] [address] [address]Dr. Eddie Lerner CBC AUTO DIFFon 06-06-2022 BASO # 0.1 103/ul Normal 0.0-0.1 [facility] Comment on above: Performed By: #### A 1C #### [facility] [address] [address] [address] Eddie Lerner Basophils/100 WBC (Bld) 0.6 % Normal 0.2-2.0 [facility] Comment on above: Performed By: #### A 1C #### [facility] [address] [address] [address] Eddie Lerner EO # 0.2 103/ul Normal 0.0-0.7 [facility] Comment on above: Performed By: #### A 1C #### [facility] [address] [place] [address] Dr. Eddie Lerner Eosinophils/100 WBC (Bld) 1.8 % Normal 0.9-7.0 [facility] Comment on above: Performed By: #### A 1C #### [facility] [address] [place] [address] Dr. Eddie Lerner Erythrocyte distribution width (RBC) [Ratio] 15.2 % Critically high 11.0-15.0 [facility] Comment on above: Performed By: #### A 1C #### [facility] [address] [place] [address] Dr. Eddie Lerner Hematocrit (Bld) [Volume fraction] 39.0 % Critically low 42.0-54.0 [facility] Comment on above: Performed By: #### A 1C #### [facility] [address] [address] [address] Eddie Lerner Hemoglobin (Bld) [Mass/Vol] 12.4 g/dL Critically low 14.0-18.0 [facility] Comment on above: Performed By: #### A 1C #### [facility] [address] [address] [address] Eddie Lerner IG # 0.21 10e3/ul Critically high 0.00-0.03 [facility] Comment on above: Performed By: #### A 1C #### [facility] [address] [place] [address] Dr. Eddie Lerner IG % 1.6 % Critically high 0.0-0.5 [facility] Comment on above: Performed By: #### A 1C #### [facility] [address] [place] [address] Dr. Eddie Lerner LYMPH # 1.9 103/ul Normal 1.2-3.8 [facility] Comment on above: Performed By: #### A 1C #### [facility] [address] [place] [address] Dr. Eddie Lerner Lymphocytes/100 WBC (Bld) 13.8 % Critically low 20.5-60.0 [facility] Comment on above: Performed By: #### A 1C #### [facility] [address] [place] [address] Dr. Eddie Lerner MANUAL DIFF REQ NO Normal [facility] Comment on above: Performed By: #### A 1C #### [facility] [address] [place] [address] Dr. Eddie Lerner MCH (RBC) [Entitic mass] 27.8 pg Normal 25.9-34.0 [facility] Comment on above: Performed By: #### A 1C #### [facility] [address] [place] [address] Dr. Eddie Lerner MCHC (RBC) [Mass/Vol] 31.8 g/dL Normal 29.9-35.2 [facility] Comment on above: Performed By: #### A 1C #### [facility] [address] [place] [address] Dr. Eddie Lerner MCV (RBC) [Entitic vol] 87.4 fL Normal 80.0-94.0 [facility] Comment on above: Performed By: #### A 1C #### [facility] [address] [place] [address] Dr. Eddie Lerner MONO # 0.8 103/ul Normal 0.3-0.8 [facility] Comment on above: Performed By: #### A 1C #### [facility] [address] [place] [address] Dr. Eddie Lerner Monocytes/100 WBC (Bld) 5.9 % Normal 1.7-12.0 [facility] Comment on above: Performed By: #### A 1C #### [facility] [address] [address] [address] Eddie Lerner NEUT # 10.3 103/ul Critically high 1.4-6.5 [facility] Comment on above: Performed By: #### A 1C #### [facility] [address] [address] [address] Eddie Lerner Neutrophils/100 WBC (Bld) 76.3 % Critically high 43.0-75.0 [facility] Comment on above: Performed By: #### A 1C #### [facility] [address] [place] [address] Dr. Eddie Lerner Platelet mean volume (Bld) [Entitic vol] 10.2 fL Normal 9.5-13.5 [facility] Comment on above: Performed By: #### A 1C #### [facility] [address] [address] [address] Eddie Lerner PLT 288 103/ul Normal 150-450 [facility] Comment on above: Performed By: #### A 1C #### [facility] [address] [address] [address] Eddie Lerner RBC 4.46 106/ul Critically low 4.70-6.10 [facility] Comment on above: Performed By: #### A 1C #### [facility] [address] [address] [address] Eddie Lerner WBC 13.5 103/ul Critically high 4.0-11.0 [facility] Comment on above: Performed By: #### A 1C #### [facility] [address] [place] [address] Dr. Eddie Lerner GLYCOHEMOGLOBIN A1Con 2022 ADA RECOMMENDATION SEE BELOW Normal [facility] Comment on above: Result Comment: ADA RECOMMENDED LIMIT 4.0 - 6.0 ADA THERAPEUTIC TARGET < 7.0 ACTION SUGGESTED > 7.0 Performed By: #### A 1C #### [facility] [address] [address] [address] Eddie Lerner Glucose [Mass/Vol] 283 mg/dL Normal [facility] Comment on above: Performed By: #### A 1C #### [facility] [address] [place] [address] Dr. Eddie Lerner HbA1c (Bld) [Mass fraction] 11.5 % Critically high 4.5-6.2 [facility] Comment on above: Performed By: #### A 1C #### [facility] [address] [place] [address] Dr. Eddie Lerner LIPID PROFILEon 06-06-2022 CHOL-HDL RATIO NORM SEE BELOW Normal [facility] Comment on above: Result Comment: 3.3 - 4.4 LOW RISK 4.4 - 7.1 AVERAGE RISK 7.1 - 11.0 MODERATE RISK >11.0 HIGH RISK Performed By: #### R ENAL, LIPID, LIVER, TSH #### [facility] [address] [place] [address] Dr. Eddie Lerner Cholesterol [Mass/Vol] 152 mg/dL Normal <=200 [facility] Comment on above: Performed By: #### R ENAL, LIPID, LIVER, TSH #### [facility] [address] [place] [address] Dr. Eddie Lerner Cholesterol in HDL [Mass/Vol] 51 mg/dL Normal 40-60 [facility] Comment on above: Performed By: #### R ENAL, LIPID, LIVER, TSH #### [facility] [address] [place] [address] Dr. Eddie Lerner Cholesterol in LDL [Mass/Vol] 61.0 mg/dL Normal [facility] Comment on above: Performed By: #### R ENAL, LIPID, LIVER, TSH #### [facility] [address] [place] [address] Dr. Eddie Lerner Cholesterol.total/C holesterol in HDL [Mass ratio] 3.0 {ratio} Normal [facility] Comment on above: Performed By: #### R ENAL, LIPID, LIVER, TSH #### [facility] [address] [place] [address] Dr. Eddie Lerner HDL NORMAL > or = 60 mg/dl - LO W CARDIOVASCULAR RISK <40 mg/dl - HIGH CARDIOVASCULAR RISK Normal [facility] Comment on above: Performed By: #### R ENAL, LIPID, LIVER, TSH #### [facility] [address] [address] [address] Eddie Lerner LDL CALC NORMAL SEE BELOW Normal [facility] Comment on above: Result Comment: <100 mg/dl OPTIMAL 100 - 129 mg/dl NEAR OR ABOVE OPTIMAL 130 - 159 mg/dl BORDERLINE HIGH 160 - 189 mg/dl HIGH >190 mg/dl VERY HIGH Performed By: #### R ENAL, LIPID, LIVER, TSH #### [facility] [address] [address] [address] Eddie Lerner Triglyceride [Mass/Vol] 200 mg/dL Critically high <=150 [facility] Comment on above: Performed By: #### R ENAL, LIPID, LIVER, TSH #### [facility] [address] [address] [address] Eddie Lerner VLDL CALC 40.0 mg/dL Normal [facility] Comment on above: Performed By: #### R ENAL, LIPID, LIVER, TSH #### [facility] [address] [address] [address] Eddie Lerner LIVER PROFILEon 06-06-2022 Albumin [Mass/Vol] 2.6 g/dL Critically low 3.4-5.0 [facility] Comment on above: Performed By: #### R ENAL, LIPID, LIVER, TSH #### [facility] [address] [address] [address] Eddie Lerner Albumin/Globulin [Mass ratio] 0.6 {ratio} Normal [facility] Comment on above: Performed By: #### R ENAL, LIPID, LIVER, TSH #### [facility] [address] [address] [address] Eddie Lerner ALP [Catalytic activity/Vol] 120 U/L Critically high 46-116 [facility] Comment on above: Performed By: #### R ENAL, LIPID, LIVER, TSH #### [facility] [address] [place] [address] Dr. Eddie Lerner ALT [Catalytic activity/Vol] 22 U/L Normal 16-63 [facility] Comment on above: Performed By: #### R ENAL, LIPID, LIVER, TSH #### [facility] [address] [place] [address] Dr. Eddie Lerner AST [Catalytic activity/Vol] 15 U/L Normal 15-37 [facility] Comment on above: Performed By: #### R ENAL, LIPID, LIVER, TSH #### [facility] [address] [place] [address] Dr. Eddie Lerner BILI, CONJUGATED 0.1 mg/dL Normal 0.0-0.2 [facility] Comment on above: Performed By: #### R ENAL, LIPID, LIVER, TSH #### [facility] [address] [place] [address] Dr. Eddie Lerner Bilirubin [Mass/Vol] 0.3 mg/dL Normal 0.2-1.0 [facility] Comment on above: Performed By: #### R ENAL, LIPID, LIVER, TSH #### [facility] [address] [place] [address] Dr. Eddie Lerner Globulin (S) [Mass/Vol] 4.7 g/dL Normal [facility] Comment on above: Performed By: #### R ENAL, LIPID, LIVER, TSH #### [facility] [address] [place] [address] Dr. Eddie Lerner Protein [Mass/Vol] 7.3 g/dL Normal 6.4-8.2 [facility] Comment on above: Performed By: #### R ENAL, LIPID, LIVER, TSH #### [facility] [address] [place] [address] Dr. Eddie Lerner RENAL FUNCTION PANELon 06-06 Calcium [Mass/Vol] 9.0 mg/dL Normal 8.5-10.1 [facility] Comment on above: Performed By: #### R ENAL, LIPID, LIVER, TSH #### [facility] [address] [place] [address] Dr. Eddie Lerner Chloride [Moles/Vol] 96 mmol/L Critically low 98-107 [facility] Comment on above: Performed By: #### R ENAL, LIPID, LIVER, TSH #### [facility] [address] [address] [address] Eddie Lerner CO2 [Moles/Vol] 21.8 mmol/L Normal 21.0-32.0 [facility] Comment on above: Performed By: #### R ENAL, LIPID, LIVER, TSH #### [facility] [address] [address] [address] Eddie Lerner Creatinine [Mass/Vol] 2.38 mg/dL Critically high 0.70-1.30 [facility] Comment on above: Performed By: #### R ENAL, LIPID, LIVER, TSH #### [facility] [address] [place] [address] Dr. Eddie Lerner EGFR-AF SAO TOMEAN 34 mL/min/1.73m2 Critically low >=60 [facility] Comment on above: Performed By: #### R ENAL, LIPID, LIVER, TSH #### [facility] [address] [address] [address] Eddie Lerner EGFR-NON AF SAO TOMEAN 28 mL/min/1.73m2 Critically low >=60 [facility] Comment on above: Performed By: #### R ENAL, LIPID, LIVER, TSH #### [facility] [address] [place] [address] Dr. Eddie Lerner Glucose [Mass/Vol] 523 mg/dL Critically high 74-106 [facility] Comment on above: Performed By: #### R ENAL, LIPID, LIVER, TSH #### [facility] [address] [address] [address] Eddie Lerner Phosphate [Mass/Vol] 4.1 mg/dL Normal 2.6-4.7 [facility] Comment on above: Performed By: #### R ENAL, LIPID, LIVER, TSH #### [facility] [address] [address] [address] Eddie Lerner Potassium [Moles/Vol] 4.6 mmol/L Normal 3.5-5.1 [facility] Comment on above: Performed By: #### R ENAL, LIPID, LIVER, TSH #### [facility] [address] [address] [address] Eddie Lerner Sodium [Moles/Vol] 128 mmol/L Critically low 136-145 [facility] Comment on above: Performed By: #### R ENAL, LIPID, LIVER, TSH #### [facility] [address] [place] [address] Dr. Eddie Lerner Urea nitrogen [Mass/Vol] 28.0 mg/dL Critically high 7.0-18.0 [facility] Comment on above: Performed By: #### R ENAL, LIPID, LIVER, TSH #### [facility] [address] [place] [address] Dr. Eddie Lerner TSHon 06-06-2022 TSH 1.308 uIU/mL Normal 0.358-3.740 [facility] Comment on above: Performed By: #### R ENAL, LIPID, LIVER, TSH #### [facility] [address] [place] [address] Dr. Eddie Lerner UA RANDOMon 06-06-2022 Bilirubin Ql (U) Negative Normal NEGATIVE [facility] Comment on above: Performed By: #### U A #### [facility] [address] [place] [address] Dr. Eddie Lerner Clarity (U) CLEAR Normal CLEAR [facility] Comment on above: Performed By: #### U A #### [facility] [address] [place] [address] Dr. Eddie Lerner Color (U) LT. YELLOW Normal YELLOW [facility] Comment on above: Performed By: #### U A #### [facility] [address] [place] [address] Dr. Eddie Lerner Glucose Ql (U) >1000 Abnormal NEGATIVE [facility] Comment on above: Performed By: #### U A #### [facility] [address] [place] [address] Dr. Eddie Lerner Hemoglobin Ql (U) TRACE-INTACT Abnormal NEGATIVE [facility] Comment on above: Performed By: #### U A #### [facility] [address] [place] [address] Dr. Eddie Lerner Ketones Ql (U) Negative Normal NEGATIVE [facility] Comment on above: Performed By: #### U A #### [facility] [address] [address] [address] Eddie Lerner LEUKOCYTES Negative Normal NEGATIVE [facility] Comment on above: Performed By: #### U A #### [facility] [address] [address] [address] Eddie Lerner Nitrite Ql (U) Negative Normal NEGATIVE [facility] Comment on above: Performed By: #### U A #### [facility] [address] [place] [address] Dr. Eddie Lerner pH (U) 6.5 [pH] Normal 5-9 [facility] Comment on above: Performed By: #### U A #### [facility] [address] [place] [address] Dr. Eddie Lerner SPEC GRAVITY 1.010 Normal 1.005-<=1.025 [facility] Comment on above: Performed By: #### U A #### [facility] [address] [place] [address] Dr. Eddie Lerner UA PROTEIN 100 mg/dl Abnormal NEGATIVE/ TRACE [facility] Comment on above: Performed By: #### U A #### [facility] [address] [place] [address] Dr. Eddie Lerner Urobilinogen Qn (U) 0.2 {Chaya'U}/dL Normal 0.2 - 1. 0 [facility] Comment on above: Performed By: #### U A #### [facility] [address] [place] [address] Dr. Eddie Lerner VITAMIN D 25 OHon 06-06-2022 VIT D 25-OH 13.9 ng/mL Normal [facility] Comment on above: Performed By: #### V ITAD ####[facility] [address] [address]. Eddie Lerner VIT D RANGES SEE BELOW Normal [facility] Comment on above: Result Comment: <20 ng/mL Vit D deficient 20 - <30 ng/mL Vit D insufficient 30 - 100 ng/mL Vit D sufficient >100 ng/mL Potential Toxicity Performed By: #### V ITAD ####[facility] [address] [address]Dr. Eddie Lerner ACID FAST SMEAR AND CXon Acid Fast Culture Negative Normal [facility] Comment on above: Result Comment: No a wendy fast bacilli isolated after 6 weeks. Performed By: #### A FB ####[facility] [address] [address]Dr. Eddie Lerner Acid Fast Smear Negative Normal [facility] Comment on above: Performed By: #### A FB ####[facility] [address] [address]Dr. Eddie Lerner [employer] Specimen Processing Tissue Grinding Normal [facility] Comment on above: Performed By: #### A FB ####[facility] [address] [address]Dr. Eddie Lerner FUNGAL CULTUREon 01-19-2022 Fungus (Mycology) Culture Final report Normal [facility] Comment on above: Performed By: #### R YUMIKO, LIPID, LIVER, TSH #### [facility] [address] [address] [address] Eddie Lerner Fungus Stain Final report Normal [facility] Comment on above: Performed By: #### Treva CALDERON, LIPID, LIVER, TSH #### [facility] [address] [address] [address] Eddie Lerner Result 1 Comment Normal [facility] Comment on above: Result Comment: ANNEMARIE/ Calcofluor preparation: no fungus observed. Performed By: #### R ENJOHN, LIPID, LIVER, TSH #### [facility] [address] [address] [address] Eddie Lerner Result Comment: No y east or mold isolated after 4 weeks. POINT OF CARE GLUCOSEon - Glucose [Mass/Vol] 177 mg/dL Critically high 74-[address] [facility] Comment on above: Performed By: #### A 1C #### [facility] [address] [address] [address] Eddie Lerner Glucose [Mass/Vol] 200 mg/dL Critically high 74-106 T [facility] Comment on above: Performed By: #### P OCGLUC ####[facility] [address] [place], [place] [address]QbDr. Eddie Lerner Covid-19 PCR (CVDTBH)on 12-28 SARS-CoV-2 (COVID-19) RNA SUDHA+probe Ql (Unsp spec) Not detected Normal NOT DETECTED [facility] Comment on above: Result Comment: This test is not yet approved or cleared by the [place] FDA. When there are no FDA-approved or cleared tests available, and other criteria are met, FDA can make tests available under an emergency access mechanism called an Emergency Use Authorization (EUA). The EUA for this test is supported by the Mailroom C[employer] of Health and Human Service's (HHS's) declaration [...] SARS-CoV-2. Performed By: #### A 1C #### [facility] [address] [address] [address] Eddie Lerner PROF CHEM 8 (BAS METB)on Anion gap [Moles/Vol] 15.0 mmol/L Normal [facility] Comment on above: Performed By: #### R ENAL, LIPID, LIVER, TSH #### [facility] [address] [address] [address] Eddie Lerner Calcium [Mass/Vol] 9.3 mg/dL Normal 8.5-10.1 [facility] Comment on above: Performed By: #### R ENAL, LIPID, LIVER, TSH #### [facility] [address] [address] [address] Eddie Lerner Chloride [Moles/Vol] 105 mmol/L Normal 98-107 [facility] Comment on above: Performed By: #### R ENAL, LIPID, LIVER, TSH #### [facility] [address] [address] [address] Eddie Lerner CO2 [Moles/Vol] 22.1 mmol/L Normal 21.0-32.0 [facility] Comment on above: Performed By: #### R ENAL, LIPID, LIVER, TSH #### [facility] [address] [address] [address] Eddie Lerner Creatinine [Mass/Vol] 2.29 mg/dL Critically high 0.70-1.30 [facility] Comment on above: Performed By: #### R ENAL, LIPID, LIVER, TSH #### [facility] [address] [place] [address] Dr. Eddie Lerner EGFR-AF SAO TOMEAN 35 mL/min/1.73m2 Critically low >=60 [facility] Comment on above: Performed By: #### R ENAL, LIPID, LIVER, TSH #### [facility] [address] [place] [address] Dr. Eddie Lerner EGFR-NON AF SAO TOMEAN 29 mL/min/1.73m2 Critically low >=60 [facility] Comment on above: Performed By: #### R ENAL, LIPID, LIVER, TSH #### [facility] [address] [address] [address] Eddie Lerner Glucose [Mass/Vol] 115 mg/dL Critically high 74-[address] [facility] Comment on above: Performed By: #### R ENAL, LIPID, LIVER, TSH #### [facility] [address] [place] [address] Dr. Eddie Lerner Potassium [Moles/Vol] 5.1 mmol/L Normal 3.5-5.1 [facility] Comment on above: Performed By: #### R ENAL, LIPID, LIVER, TSH #### [facility] [address] [place] [address] Dr. Eddie Lerner Sodium [Moles/Vol] 137 mmol/L Normal 136-145 [facility] Comment on above: Performed By: #### R ENJOHN, LIPID, LIVER, TSH #### [facility] [address] [address] [address] Eddie Lerner Urea nitrogen [Mass/Vol] 26.0 mg/dL Critically high 7.0-18.0 [facility] Comment on above: Performed By: #### R ENAL, LIPID, LIVER, TSH #### [facility] [address] [address] [address] Eddie Lerner Urea nitrogen/Creatinine [Mass ratio] 11.4 mg/mg Normal [facility] Comment on above: Performed By: #### R YUMIKO, LIPID, LIVER, TSH #### [facility] [address] [address] [address] Eddie Lerner TISSUE CULTUREon 01-08-2022 Anaerobic Culture, Extended Incubation Final report Normal [facility] Comment on above: Performed By: #### C XTISSU ####[facility] [address] [address]Dr. Eddie Lerner Result 1 Comment Normal [facility] Comment on above: Result Comment: Diph theroids, not Corynebacterium jeikeium Light growth Susceptibility not normally performed on this organism. Performed By: #### C XTISSU ####[facility] [address] [address]Dr. Eddie Lerner Result Comment: No a naerobes recovered. Tissue Culture Final report Abnormal [facility] Comment on above: Performed By: #### C XTISSU ####[facility] [id number] [id number]. Eddie Lerner POINT OF CARE GLUCOSEon 08-2 Glucose [Mass/Vol] 89 mg/dL Normal 74-106 [facility] Comment on above: Performed By: #### R ENJOHN, LIPID, LIVER, TSH #### [facility] [address] [address] [address] Eddie Lerner Glucose [Mass/Vol] 85 mg/dL Normal 74-106 [facility] Comment on above: Performed By: #### P OCGLUC ####[facility] [address] [address]Dr. Eddie PRINGLE STAINon 12-21-2021 COMMENTS NO ORGANISMS OBSERVED Normal [facility] Comment on above: Performed By: #### R ENAL, LIPID, LIVER, TSH #### [facility] [address] [address] [address] Eddie Lerner DIPHTHEROIDS Normal [facility] Comment on above: Performed By: #### R ENAL, LIPID, LIVER, TSH #### [facility] [address] [address] [address] Eddie Lerner EPITHELIALS Normal [facility] Comment on above: Performed By: #### R ENAL, LIPID, LIVER, TSH #### [facility] [address] [address] [address] Eddie Lerner FUNGAL ELEMENTS Normal [facility] Comment on above: Performed By: #### R ENAL, LIPID, LIVER, TSH #### [facility] [address] [address] [address] Eddie Lerner GRAM NEG BACILLI Normal [facility] Comment on above: Performed By: #### R ENAL, LIPID, LIVER, TSH #### [facility] [address] [address] [address] Eddie PRINGLE NEG DIPPLOCOCCI Normal [facility] Comment on above: Performed By: #### R ENAL, LIPID, LIVER, TSH #### [facility] [address] [address] [address] Eddie Lerner GRAM POS BACILLI Normal [facility] Comment on above: Performed By: #### R ENAL, LIPID, LIVER, TSH #### [facility] [address] [address] [address] Eddie Lerner GRAM POSITIVE COCCI Normal [facility] Comment on above: Performed By: #### R ENAL, LIPID, LIVER, TSH #### [facility] [address] [address] [address] Eddie Lerner GRAM STAIN SOURCE Lt 1st Metatarsal Bone Normal [facility] Comment on above: Performed By: #### R ENAL, LIPID, LIVER, TSH #### [facility] [address] [address] [address] Eddie Lerner GS_DIPTH Normal [facility] Comment on above: Performed By: #### R ENAL, LIPID, LIVER, TSH #### [facility] [address] [address] [address] Eddie Lerner WBC RARE Normal [facility] Comment on above: Performed By: #### R ENAL, LIPID, LIVER, TSH #### [facility] [address] [address] [address] Eddie Lerner POINT OF CARE GLUCOSEon 11-28 Glucose [Mass/Vol] 148 mg/dL Critically high 74-106 [facility] Comment on above: Performed By: #### A 1C #### [facility] [address] [address] [address] Eddie Lerner Glucose [Mass/Vol] 100 mg/dL Normal 74-106 [facility] Comment on above: Performed By: #### P OCGLUC ####[facility] [id number] [id number]. Eddie Lerner Glucose [Mass/Vol] 85 mg/dL Normal 74-106 [facility] Comment on above: Performed By: #### P OCGLUC ####[facility] [id number] [id number]. Eddie Lerner Glucose [Mass/Vol] 83 mg/dL Normal 74-106 [facility] Comment on above: Performed By: #### R ENAL, LIPID, LIVER, TSH #### [facility] [address] [address] [address] Eddie Lerner [facility]28 SARS-CoV-2 (COVID-19) RNA SUDHA+probe Ql (Unsp spec) Not detected Normal NOT DETECTED [facility] Comment on above: Result Comment: This test is not yet approved or cleared by the [place] FDA. When there are no FDA-approved or cleared tests available, and other criteria are met, FDA can make tests available under an emergency access mechanism called an Emergency Use Authorization (EUA). The EUA for this test is supported by the Mailroom Courier of Health and Human Service's (HHS's) declaration [...] with SARS-CoV-2. Performed By: #### C VDTBH ####[facility] [address] [address]Dr. Eddie Lerner PROF CHEM 8 (BAS METB)on Anion gap [Moles/Vol] 11.5 mmol/L Normal [facility] Comment on above: Performed By: #### R ENAL, LIPID, LIVER, TSH #### [facility] [address] [address] [address] Eddie Lerner Calcium [Mass/Vol] 9.0 mg/dL Normal 8.5-10.1 [facility] Comment on above: Performed By: #### R ENAL, LIPID, LIVER, TSH #### [facility] [address] [address] [address] Eddie Lerner Chloride [Moles/Vol] 102 mmol/L Normal 98-107 [facility] Comment on above: Performed By: #### R ENAL, LIPID, LIVER, TSH #### [facility] [address] [address] [address] Eddie Lerner CO2 [Moles/Vol] 24.8 mmol/L Normal 21.0-32.0 [facility] Comment on above: Performed By: #### R ENAL, LIPID, LIVER, TSH #### [facility] [address] [address] [address] Eddie Lerner Creatinine [Mass/Vol] 2.19 mg/dL Critically high 0.70-1.30 [facility] Comment on above: Performed By: #### R ENAL, LIPID, LIVER, TSH #### [facility] [address] [place] [address] Dr. Eddie Lerner EGFR-AF SAO TOMEAN 37 mL/min/1.73m2 Critically low >=60 [facility] Comment on above: Performed By: #### R ENAL, LIPID, LIVER, TSH #### [facility] [address] [address] [address] Eddie Lerner EGFR-NON AF SAO TOMEAN 31 mL/min/1.73m2 Critically low >=60 [facility] Comment on above: Performed By: #### R ENAL, LIPID, LIVER, TSH #### [facility] [address] [place] [address] Dr. Eddie Lerner Glucose [Mass/Vol] 330 mg/dL Critically high 74-[address] [facility] Comment on above: Performed By: #### R ENAL, LIPID, LIVER, TSH #### [facility] [address] [place] [address] Dr. Eddie Lerner Potassium [Moles/Vol] 5.3 mmol/L Critically high 3.5-5.1 [facility] Comment on above: Performed By: #### R ENAL, LIPID, LIVER, TSH #### [facility] [address] [place] [address] Dr. Eddie Lerner Sodium [Moles/Vol] 133 mmol/L Critically low 136-145 [facility] Comment on above: Performed By: #### R ENAL, LIPID, LIVER, TSH #### [facility] [address] [place] [address] Dr. Eddie Lerner Urea nitrogen [Mass/Vol] 25.0 mg/dL Critically high 7.0-18.0 [facility] Comment on above: Performed By: #### R ENAL, LIPID, LIVER, TSH #### [facility] [address] [place] [address] Dr. Eddie Lerner Urea nitrogen/Creatinine [Mass ratio] 11.4 mg/mg Normal [facility] Comment on above: Performed By: #### R ENAL, LIPID, LIVER, TSH #### [facility] [address] [address] [address] Eddie Lerner [facility] Metabolic Pane babatunde 08-01-2021 Albumin [Mass/Vol] 2.8 g/dL Low 3.2-5.5 [facility] Comment on above: Order Comment: REDRA W FOR SHORT DRAW AND HEMOLYSIS Performed By: #### P P #### [address] Albumin/Globulin [Mass ratio] 0.7 {ratio} Normal [facility] Comment on above: Order Comment: REDRA W FOR SHORT DRAW AND HEMOLYSIS Performed By: #### P P #### [address] ALP [Catalytic activity/Vol] 87 U/L Normal 32-92 [facility] Comment on above: Order Comment: REDRA W FOR SHORT DRAW AND HEMOLYSIS Performed By: #### P P #### [address] ALT [Catalytic activity/Vol] 18 U/L Normal 10-60 [facility] Comment on above: Order Comment: REDRA W FOR SHORT DRAW AND HEMOLYSIS Performed By: #### P P #### [place] [address] [place] AST [Catalytic activity/Vol] 20 U/L Normal 10-42 [facility] Comment on above: Order Comment: REDRA W FOR SHORT DRAW AND HEMOLYSIS Performed By: #### P P #### [place] [address] [place] Bilirubin [Mass/Vol] 0.6 mg/dL Normal 0.3-1.2 [facility] Comment on above: Order Comment: REDRA W FOR SHORT DRAW AND HEMOLYSIS Performed By: #### P P #### [place] [address] [place] Calcium [Mass/Vol] 8.9 mg/dL Normal 8.2-10.2 [facility] Comment on above: Order Comment: REDRA W FOR SHORT DRAW AND HEMOLYSIS Performed By: #### P P #### [address] Chloride [Moles/Vol] 103 mmol/L Normal 95-114 [facility] Comment on above: Order Comment: REDRA W FOR SHORT DRAW AND HEMOLYSIS Performed By: #### P P #### [address] CO2 [Moles/Vol] 24.7 mmol/L Normal 22.0-30.0 [facility] Comment on above: Order Comment: REDRA W FOR SHORT DRAW AND HEMOLYSIS Performed By: #### P P #### [address] Creatinine [Mass/Vol] 2.34 mg/dL High 0.64-1.27 [facility] Comment on above: Order Comment: REDRA W FOR SHORT DRAW AND HEMOLYSIS Performed By: #### P P #### [address] Estimated GFR ( Camilla 34 [facility] Comment on above: Order Comment: REDRA W FOR SHORT DRAW AND HEMOLYSIS Result Comment: GFR estimated reference range: According to KDOQI guidelines, <60 ml/min/1.73m2 is sufficient to diagnose a patient with chronic kidney disease. Performed By: #### P P #### [address] Estimated GFR (Non- Am 28 [facility] Comment on above: Order Comment: REDRA W FOR SHORT DRAW AND HEMOLYSIS Performed By: #### P P #### [address] Globulin (S) [Mass/Vol] 3.9 g/dL [facility] Comment on above: Order Comment: REDRA W FOR SHORT DRAW AND HEMOLYSIS Performed By: #### P P #### [address] Glucose [Mass/Vol] 171 mg/dL High 70-100 [facility] Comment on above: Order Comment: REDRA W FOR SHORT DRAW AND HEMOLYSIS Result Comment: [place] om Glucose Reference Range is dependent on time and content of last meal. Glucose of more than 200 mg/dL in a nonstressed, ambulatory subject supports the diagnosis of Diabetes Mellitus. ADA recommended reference range Performed By: #### P P #### [address] Potassium [Moles/Vol] 4.0 mmol/L Normal 3.5-5.1 [facility] Comment on above: Order Comment: REDRA W FOR SHORT DRAW AND HEMOLYSIS Performed By: #### P P #### [address] Protein [Mass/Vol] 6.7 g/dL Normal 6.1-7.9 [facility] Comment on above: Order Comment: REDRA W FOR SHORT DRAW AND HEMOLYSIS Performed By: #### P P #### [address] Sodium [Moles/Vol] 138 mmol/L Normal 136-146 [facility] [facility] Comment on above: Order Comment: REDRA W FOR SHORT DRAW AND HEMOLYSIS Performed By: #### P P #### [address] Urea nitrogen [Mass/Vol] 18 mg/dL Normal 9-23 [facility] Comment on above: Order Comment: REDRA W FOR SHORT DRAW AND HEMOLYSIS Performed By: #### P P #### [address] Ferritinon 08-01-2021 Ferritin [Mass/Vol] 151.9 ng/mL Normal 23.9-336.2 [facility] Comment on above: Order Comment: Reaso n for Exam CKD (chronic kidney disease) stage 4, GFR 15-29 ml/min;Diabe Performed By: #### C MP, CBC, MG, TROP, BNP #### [address] Hemogram CBC Without Diffon 08-01-2021 Erythrocyte distribution width (RBC) [Ratio] 15.9 % High 12.0-14.8 [facility] Comment on above: Order Comment: REDRA W FOR SHORT DRAW AND HEMOLYSIS Performed By: #### P P #### [address] Hematocrit (Bld) [Volume fraction] 38.9 % Normal 38.8-50.0 [facility] Comment on above: Order Comment: REDRA W FOR SHORT DRAW AND HEMOLYSIS Performed By: #### P P #### [address] Hemoglobin (Bld) [Mass/Vol] 12.9 g/dL Low 13.0-17.0 [facility] Comment on above: Order Comment: REDRA W FOR SHORT DRAW AND HEMOLYSIS Performed By: #### P P #### [address] MCH (RBC) [Entitic mass] 28.4 pg Normal 27.5-35.2 [facility] Comment on above: Order Comment: REDRA W FOR SHORT DRAW AND HEMOLYSIS Performed By: #### P P #### [address] MCV (RBC) [Entitic vol] 85.7 fL Normal 83.5-101 [facility] Comment on above: Order Comment: REDRA W FOR SHORT DRAW AND HEMOLYSIS Performed By: #### P P #### [address] Mean Corpuscular HGB Conc 33.1 g/dL Normal 32.5-35.6 [facility] Comment on above: Order Comment: REDRA W FOR SHORT DRAW AND HEMOLYSIS Performed By: #### P P #### [address] Platelet mean volume (Bld) [Entitic vol] 7.8 fL Normal 6.6-10.1 [facility] Comment on above: Order Comment: REDRA W FOR SHORT DRAW AND HEMOLYSIS Result Comment: PERF ORMED BY: [place] [address] PATHOLOGIST ANALYTICAL CHEMIST JORDNA RODRIGUEZ M.D. Performed By: #### P P #### [address] Platelets (Bld) [#/Vol] 352 10*3/uL Normal 150-450 [facility] Comment on above: Order Comment: REDRA W FOR SHORT DRAW AND HEMOLYSIS Performed By: #### P P #### [address] RBC (Bld) [#/Vol] 4.54 10*6/uL Normal 3.90-5.60 [facility] Comment on above: Order Comment: REDRA W FOR SHORT DRAW AND HEMOLYSIS Performed By: #### P P #### [address] WBC (Bld) [#/Vol] 9.1 10*3/uL Normal 4.1-10.5 [facility] Comment on above: Order Comment: REDRA W FOR SHORT DRAW AND HEMOLYSIS Performed By: #### P P #### [address] Iron and TIBC Profileon % Iron Saturation 24.0 % Normal 20-50 [facility] Comment on above: Order Comment: REDRA W FOR SHORT DRAW AND HEMOLYSIS Performed By: #### P P #### [address] Iron [Mass/Vol] 47 ug/dL Normal 40-160 [facility] Comment on above: Order Comment: REDRA W FOR SHORT DRAW AND HEMOLYSIS Performed By: #### P P #### [address] Total Iron Binding Capacity 192 ug/dL Low 255-450 [facility] Comment on above: Order Comment: REDRA W FOR SHORT DRAW AND HEMOLYSIS Performed By: #### P P #### [address] Transferrin [Mass/Vol] 137 mg/dL Low 180-380 [facility] Comment on above: Order Comment: REDRA W FOR SHORT DRAW AND HEMOLYSIS Performed By: #### P P #### [address] Magnesiumon 08-01-2021 Magnesium [Mass/Vol] 2.2 mg/dL Normal 1.6-2.6 [facility] Comment on above: Order Comment: REDRA W FOR SHORT DRAW AND HEMOLYSIS Performed By: #### P P #### [facility] [address] [place] [address] Parathyroid Hormone Intacton 08-01-2021 Parathyroid Hormone Intact 31.2 pg/mL Normal 12-88 [facility] Comment on above: Order Comment: Reaso n for Exam CKD (chronic kidney disease) stage 4, GFR 15-29 ml/min;Diabe Result Comment: PERF ORMED BY: [place] [address] PATHOLOGIST ANALYTICAL CHEMIST JORDAN RODRIGUEZ M.D. Performed By: #### C MP, CBC, MG, TROP, BNP #### [address] Uric Acidon 08-01-2021 Urate [Mass/Vol] 8.4 mg/dL High 2.6-7.2 [facility] Comment on above: Order Comment: REDRA W FOR SHORT DRAW AND HEMOLYSIS Performed By: #### P P #### [address] Vitamin D 25 Hydroxy Totalon 08-01-2021 Vitamin D 25 Hydroxy Total 28.2 ng/mL Low 30-100 [facility] Comment on above: Order Comment: Reaso [...] C MP, CBC, MG, TROP, BNP #### [address] Complete Pulmonary Functiono n 09-28-2020 Complete Pulmonary Function [facility] [place] [address] Pulmonary Function Signed Patient: Rashard Lyman MR#: [id number] : 1960 Acct:[id number] Age/Sex: 60 / M ADM Date: 09/28/20 Loc: RT Room: Type: [facility] Attending Dr: USMAN Stover APRN Ordering [...] to 2.21 L or 50% predicted. The OJD47-64% is reduced at 1.92 L/sec or 54% predicted. After administration of bronchodilators, there is an insignificant 5% improvement in the forced vital capacity and 5% improvement in the FEV1. The KMR10-22% improves insignificantly by 10%. LUNG VOLUMES: Lung [...] adequate pulmonary function studies reveal evidence of [id number] restriction without clear evidence of obstruction nor [...] MD 09/28/20 1305 Signed By: 09/28/20 1505 Normal [facility] echo limitedon 1 [facility] echo limited [facility] [place] [address] [place] [address] Echocardiogram Signed Patient: Rashard Lyman MR#: [id number] : 1960 Acct:[id number] Age/Sex: 60 / M ADM Date: 09/06/20 Loc: Room: Type: [facility] Attending Dr: Gautam Bazan MD Ordering Provider: Gautam Bazan MD Date of Service: 09/06/20 [facility] echo limited: re assess pericardial effusions Copies to: Nancy Jackson MD, [facility] Gautam Bazan MD Weight: 354 lb Performed [...] 09/06/20 1626 Dictated By: Nancy Jackson MD, [facility] 09/06/20 1232 Signed By: 09/06/20 1629 Normal [facility] Albumin [Mass/volume] in Ser um or Plasmaon 08-25-2020 Albumin [Mass/Vol] 2.0 g/dL 3.2-5.5 [facility] Basophils Auto (Bld) [#/Vol] on 08-25-2020 Basophils (Bld) [#/Vol] 0.0 10*3/uL 0.0-0.2 [facility] Basophils/100 WBC Auto (Bld) on 08-25-2020 Basophils/100 WBC (Bld) 0.1 % [facility] Blood anisocytosis detection on 08-25-2020 Anisocytosis Ql (Bld) Slight [facility] Blood hemoglobin measurement (mass/volume)on 08-25-2020 Hemoglobin (Bld) [Mass/Vol] 10.1 g/dL 13.0-17.0 [facility] Blood leukocytes automated c ount (number/volume)on 08-25-2020 WBC (Bld) [#/Vol] 12.6 10*3/uL 4.5-11.0 [facility] Blood polychromasia detectio n by light microscopyon 08-25-2020 Polychromasia LM Ql (Bld) Slight [facility] Creatinine and Glomerular fi ltration rate.predicted panel (S/P/Bld)on 08-25-2020 Creatinine [Mass/Vol] 4.06 mg/dL 0.64-1.27 [facility] ECG 12 lead ECGon 08-25-2020 ECG 12 lead ECG [facility] [place] [address] Electrocardiograph Report Signed Patient: Rashard Lyman MR#: [id number] : 1960 Acct:[id number] Age/Sex: 60 / M ADM Date: 08/18/20 Loc: Room: [address] [place] [address] Type: ADM IN Attending Dr: Gordon Ewing [...] 08/25/20 0719 Signed By: 08/25/20 0951 Normal [facility] Eosinophils Auto (Bld) [#/Vo l]on 08-25-2020 Eosinophils (Bld) [#/Vol] 0.0 10*3/uL 0.0-0.45 [facility] Eosinophils/100 WBC Auto (Bl d)on 08-25-2020 Eosinophils/100 WBC (Bld) 0.1 % [facility] Erythrocyte distribution wid th Auto (RBC) [Ratio]on 08-25-2020 Erythrocyte distribution width (RBC) [Ratio] 16.6 % 12.0-14.8 [facility] Estimated glomerular filtrat ion rate (GFR) non- Americanon 08-25-2020 GFR/1.73 sq M.predicted among non-blacks MDRD (S/P/Bld) [Vol rate/Area] 15 mL/Min [facility] Glucose Glucometer (BldC) [M ass/Vol]on 08-25-2020 Glucose [Mass/Vol] 122 mg/dL [facility] Comment on above: Random Glucose Refer ence Range is dependent on time and content of last meal. Glucose of more than 200 mg/dL in a nonstressed, ambulatory subject supports the diagnosis of Diabetes Mellitus. Glucose Poct Glucometerson 0 08-25-2020 Commemt1 Glu2: Cleaned Meter Normal [facility] Comment on above: Result Comment: PERF ORMED BY: [place] [address] PATHOLOGIST ANALYTICAL CHEMIST JORDAN RODRIGUEZ M.D. Performed By: #### P P #### [address] Glucose [Mass/Vol] 122 mg/dL [facility] Comment on above: Result Comment: [place] om Glucose Reference Range is dependent on time and content of last meal. Glucose of more than 200 mg/dL in a nonstressed, ambulatory subject supports the diagnosis of Diabetes Mellitus. Performed By: #### P P #### [address] Commemt1 Glu2: Cleaned Meter Normal [facility] Comment on above: Result Comment: PERF ORMED BY: [place] [address] PATHOLOGIST ANALYTICAL CHEMIST JORDAN RODRIGUEZ M.D. Performed By: #### V BG #### Point of Care testing , Glucose [Mass/Vol] 104 mg/dL Normal [facility] Comment on above: Result Comment: [place] om Glucose Reference Range is dependent on time and content of last meal. Glucose of more than 200 mg/dL in a nonstressed, ambulatory subject supports the diagnosis of Diabetes Mellitus. Performed By: #### V BG #### Point of Care testing , Glucose [Mass/Vol] 115 mg/dL Normal [facility] Comment on above: Result Comment: [place] om Glucose Reference Range is dependent on time and content of last meal. Glucose of more than 200 mg/dL in a nonstressed, ambulatory subject supports the diagnosis of Diabetes Mellitus. PERFORMED BY: [place] [address] PATHOLOGIST ANALYTICAL CHEMIST JORDAN RODRIGUEZ M.D. Performed By: #### V BG #### Point of Care testing , Hematocrit Auto (Bld) [Volum e fraction]on 08-25-2020 Hematocrit (Bld) [Volume fraction] 31.7 % 38.8-50.0 [facility] Laboratory - Hematology and Cell countson 08-25-2020 Nucleated RBC/100 WBC (Bld) [Ratio] 0.2 % 0-0.5 [facility] Lymphocytes Auto (Bld) [#/Vo l]on 08-25-2020 Lymphocytes (Bld) [#/Vol] 1.1 10*3/uL 1.00-4.8 [facility] Lymphocytes/100 WBC Auto (Bl d)on 08-25-2020 Lymphocytes/100 WBC (Bld) 8.9 % [facility] MCH Auto (RBC) [Entitic mass ]on 08-25-2020 MCH (RBC) [Entitic mass] 26.2 pg 27.5-35.2 [facility] MCHC Auto (RBC) [Mass/Vol]on 08-25-2020 MCHC (RBC) [Mass/Vol] 31.9 g/dL 32.5-35.6 [facility] MCV Auto (RBC) [Entitic vol] on 08-25-2020 MCV (RBC) [Entitic vol] 82.3 fL 83.5-101 [facility] Monocytes Auto (Bld) [#/Vol] on 08-25-2020 Monocytes (Bld) [#/Vol] 1.2 10*3/uL 0.0-0.8 [facility] Monocytes/100 WBC Auto (Bld) on 08-25-2020 Monocytes/100 WBC (Bld) 9.6 % [facility] Neutrophils Auto (Bld) [#/Vo l]on 08-25-2020 Neutrophils (Bld) [#/Vol] 10.2 10*3/uL 1.8-7.7 [facility] Neutrophils/100 WBC Auto (Bl d)on 08-25-2020 Neutrophils/100 WBC (Bld) 81.3 % [facility] No Panel Informationon 08-25 Bedside Glucose Comment Glu2: cleaned meter [facility] Estimated GFR () 18 mL/Min [facility] Comment on above: GFR estimated refere nce range: According to KDOQI guidelines, <60 ml/min/1.73m2 is sufficient to diagnose a patient with chronic kidney disease. Pharmacy Creatinine Clearance (Chem 31.84 [facility] Platelet Estimate Normal Normal [facility] Platelet Morphology Comment Normal Normal [facility] Phosphate [Mass/volume] in S miki or Plasmaon 08-25-2020 Phosphate [Mass/Vol] 5.3 mg/dL 2.5-4.6 [facility] Platelet mean volume Auto (B ld) [Entitic vol]on 08-25-2020 Platelet mean volume (Bld) [Entitic vol] 7.1 fL 6.6-10.1 [facility] Platelets Auto (Bld) [#/Vol] on 08-25-2020 Platelets (Bld) [#/Vol] 388 10*3/uL 150-450 [facility] RBC Auto (Bld) [#/Vol]on RBC (Bld) [#/Vol] 3.85 10*6/uL 3.90-5.60 [facility] RBC morphologyon 08-25-2020 RBC morphology finding Nom (Bld) N/A [facility] Renal Function Panelon 08-25 Albumin [Mass/Vol] 2.0 g/dL Low 3.2-5.5 [facility] Comment on above: Performed By: #### V BG #### Point of Care testing , Calcium [Mass/Vol] 8.7 mg/dL Normal 8.2-10.2 [facility] Comment on above: Performed By: #### V BG #### Point of Care testing , Chloride [Moles/Vol] 99 mmol/L Normal 95-114 [facility] Comment on above: Performed By: #### V BG #### Point of Care testing , CO2 [Moles/Vol] 26.2 mmol/L Normal 22.0-30.0 [facility] Comment on above: Performed By: #### V BG #### Point of Care testing , Creatinine [Mass/Vol] 4.06 mg/dL High 0.64-1.27 [facility] Comment on above: Performed By: #### V BG #### Point of Care testing , Creatinine Clr Calc Pharmacy 31.84 [facility] Comment on above: Result Comment: PERF ORMED BY: [facility] [address] [place] [address] PATHOLOGIST ANALYTICAL CHEMIST JORDAN RODRIGUEZ M.D. Performed By: #### V BG #### Point of Care testing , Estimated GFR ( Camilla 18 [facility] Comment on above: Result Comment: GFR estimated reference range: According to KDOQI guidelines, <60 ml/min/1.73m2 is sufficient to diagnose a patient with chronic kidney disease. Performed By: #### V BG #### Point of Care testing , Estimated GFR (Non- Am 15 [facility] Comment on above: Performed By: #### V BG #### Point of Care testing , Glucose [Mass/Vol] 113 mg/dL High 70-100 [facility] Comment on above: Result Comment: [place] Glucose Reference Range is dependent on time and content of last meal. Glucose of more than 200 mg/dL in a nonstressed, ambulatory subject supports the diagnosis of Diabetes Mellitus. ADA recommended reference range Performed By: #### V BG #### Point of Care testing , Phosphate [Mass/Vol] 5.3 mg/dL High 2.5-4.6 [facility] Comment on above: Performed By: #### V BG #### Point of Care testing , Potassium [Moles/Vol] 4.6 mmol/L Normal 3.5-5.1 [facility] Comment on above: Performed By: #### V BG #### Point of Care testing , Sodium [Moles/Vol] 135 mmol/L Low 136-146 [facility] Comment on above: Performed By: #### V BG #### Point of Care testing , Urea nitrogen [Mass/Vol] 75 mg/dL High 9-23 [facility] Comment on above: Performed By: #### V BG #### Point of Care testing , Scan and CBCon 08-25-2020 Anisocytosis Ql (Bld) Slight Normal [facility] Comment on above: Performed By: #### V BG #### Point of Care testing , Basophils (Bld) [#/Vol] 0.0 10*3/uL Normal 0.0-0.2 [facility] Comment on above: Performed By: #### V BG #### Point of Care testing , Basophils/100 WBC (Bld) 0.1 % Normal . [facility] Comment on above: Performed By: #### V BG #### Point of Care testing , Eosinophils (Bld) [#/Vol] 0.0 10*3/uL Normal 0.0-0.45 [facility] Comment on above: Performed By: #### V BG #### Point of Care testing , Eosinophils/100 WBC (Bld) 0.1 % Normal . [facility] Comment on above: Performed By: #### V BG #### Point of Care testing , Erythrocyte distribution width (RBC) [Ratio] 16.6 % High 12.0-14.8 [facility] Comment on above: Performed By: #### V BG #### Point of Care testing , Hematocrit (Bld) [Volume fraction] 31.7 % Low 38.8-50.0 [facility] Comment on above: Performed By: #### V BG #### Point of Care testing , Hemoglobin (Bld) [Mass/Vol] 10.1 g/dL Low 13.0-17.0 [facility] Comment on above: Performed By: #### V BG #### Point of Care testing , Lymphocytes (Bld) [#/Vol] 1.1 10*3/uL Normal 1.00-4.8 [facility] Comment on above: Performed By: #### V BG #### Point of Care testing , Lymphocytes/100 WBC (Bld) 8.9 % Normal . [facility] Comment on above: Performed By: #### V BG #### Point of Care testing , MCH (RBC) [Entitic mass] 26.2 pg Low 27.5-35.2 [facility] Comment on above: Performed By: #### V BG #### Point of Care testing , MCV (RBC) [Entitic vol] 82.3 fL Low 83.5-101 [facility] Comment on above: Performed By: #### V BG #### Point of Care testing , Mean Corpuscular HGB Conc 31.9 g/dL Low 32.5-35.6 [facility] Comment on above: Performed By: #### V BG #### Point of Care testing , Monocytes (Bld) [#/Vol] 1.2 10*3/uL High 0.0-0.8 [facility] Comment on above: Performed By: #### V BG #### Point of Care testing , Monocytes/100 WBC (Bld) 9.6 % Normal . [facility] Comment on above: Performed By: #### V BG #### Point of Care testing , Neutrophils (Bld) [#/Vol] 10.2 10*3/uL High 1.8-7.7 [facility] Comment on above: Performed By: #### V BG #### Point of Care testing , Neutrophils/100 WBC (Bld) 81.3 % Normal . [facility] Comment on above: Performed By: #### V BG #### Point of Care testing , Nucleated RBC/100 WBC (Bld) [Ratio] 0.2 % Normal 0-0.5 [facility] Comment on above: Performed By: #### V BG #### Point of Care testing , Platelet Estimate Normal Normal Normal [facility] Comment on above: Performed By: #### V BG #### Point of Care testing , Platelet mean volume (Bld) [Entitic vol] 7.1 fL Normal 6.6-10.1 [facility] Comment on above: Performed By: #### V BG #### Point of Care testing , Platelet Morphology Normal Normal Normal [facility] Comment on above: Result Comment: PERF ORMED BY: [facility] [address] [place] [address] PATHOLOGIST ANALYTICAL CHEMIST JORDAN RODRIGUEZ M.D. Performed By: #### V BG #### Point of Care testing , Platelets (Bld) [#/Vol] 388 10*3/uL Normal 150-450 [facility] Comment on above: Performed By: #### V BG #### Point of Care testing , Polychromasia Slight Normal [facility] Comment on above: Performed By: #### V BG #### Point of Care testing , RBC (Bld) [#/Vol] 3.85 10*6/uL Low 3.90-5.60 [facility] Comment on above: Performed By: #### V BG #### Point of Care testing , WBC (Bld) [#/Vol] 12.6 10*3/uL High 4.5-11.0 [facility] Comment on above: Performed By: #### V BG #### Point of Care testing , Serum or plasma calcium joel urement (mass/volume)on 08-25-2020 Calcium [Mass/Vol] 8.7 mg/dL 8.2-10.2 [facility] Serum or plasma chloride faraz surement (moles/volume)on 08-25-2020 Chloride [Moles/Vol] 99 mmol/L 95-114 [facility] Serum or plasma glucose joel urement (mass/volume)on 08-25-2020 Glucose [Mass/Vol] 113 mg/dL 70-100 [facility] Comment on above: ADA recommended refe rence rangeRandom Glucose Reference Range is dependent on time and content of last meal. Glucose of more than 200 mg/dL in a nonstressed, ambulatory subject supports the diagnosis of Diabetes Mellitus. Serum or plasma potassium me asurement (moles/volume)on 08-25-2020 Potassium [Moles/Vol] 4.6 mmol/L 3.5-5.1 [facility] Serum or plasma sodium measu rement (moles/volume)on 08-25-2020 Sodium [Moles/Vol] 135 mmol/L 136-146 [facility] Serum or plasma total carbon dioxide measurement (moles/volume)on 08-25-2020 CO2 [Moles/Vol] 26.2 mmol/L 22.0-30.0 [facility] Serum or plasma urea nitroge n measurement (mass/volume)on 08-25-2020 Urea nitrogen [Mass/Vol] 75 mg/dL 9- [facility] Diff and CBCon 08-24-2020 Anisocytosis Ql (Bld) Slight Normal [facility] Comment on above: Performed By: #### C OVID-19 LIAT, SOFIANEG #### [facility] [address] [place] [address] [place] Band form neutrophils/100 WBC (Bld) 1 % Normal 0-5 [facility] Comment on above: Performed By: #### C OVID-19 LIAT, SOFIANEG #### [facility] [address] [place] [address] [place] Basophilic stippling LM Ql (Bld) Slight Normal [facility] Comment on above: Performed By: #### C OVID-19 LIAT, SOFIANEG #### [address] Erythrocyte distribution width (RBC) [Ratio] 16.6 % High 12.0-14.8 [facility] Comment on above: Performed By: #### C OVID-19 LIAT, SOFIANEG #### [address] Hematocrit (Bld) [Volume fraction] 30.0 % Low 38.8-50.0 [facility] Comment on above: Performed By: #### C OVID-19 LIAT, SOFIANEG #### [address] Hemoglobin (Bld) [Mass/Vol] 10.1 g/dL Low 13.0-17.0 [facility] Comment on above: Performed By: #### C OVID-19 LIAT, SOFIANEG #### [address] Lymphocytes/100 WBC (Bld) 6 % Low 18-42 [facility] Comment on above: Performed By: #### C OVID-19 LIAT, SOFIANEG #### [address] MCH (RBC) [Entitic mass] 27.5 pg Normal 27.5-35.2 [facility] Comment on above: Performed By: #### C OVID-19 LIAT, SOFIANEG #### [address] MCV (RBC) [Entitic vol] 81.9 fL Low 83.5-101 [facility] Comment on above: Performed By: #### C OVID-19 LIAT, SOFIANEG #### [address] Mean Corpuscular HGB Conc 33.6 g/dL Normal 32.5-35.6 [facility] Comment on above: Performed By: #### C OVID-19 LIAT, SOFIANEG #### [address] Metamyelocytes 1 % High 0-0 [facility] Comment on above: Performed By: #### C OVID-19 LIAT, SOFIANEG #### [address] Monocytes/100 WBC (Bld) 4 % Normal 2-11 [facility] Comment on above: Performed By: #### C OVID-19 LIAT, SOFIANEG #### [facility] [address] [place] [address] Myelocytes 1 % High 0-0 [facility] Comment on above: Performed By: #### C OVID-19 LIAT, SOFIANEG #### [address] Nucleated RBC/100 WBC (Bld) [Ratio] 0.0 % Normal 0-0.5 [facility] Comment on above: Result Comment: PERF ORMED BY: [place] [address] PATHOLOGIST ANALYTICAL CHEMIST JORDAN RODRIGUEZ M.D. Performed By: #### C OVID-19 LIAT, SOFIANEG #### [address] Platelet Estimate Normal Normal Normal [facility] Comment on above: Performed By: #### C OVID-19 LIAT, SOFIANEG #### [address] Platelet mean volume (Bld) [Entitic vol] 7.0 fL Normal 6.6-10.1 [facility] Comment on above: Performed By: #### C OVID-19 LIAT, SOFIANEG #### [facility] [address] [place] [address] Platelet Morphology Normal Normal Normal [facility] Comment on above: Result Comment: PERF ORMED BY: [place] [address] PATHOLOGIST ANALYTICAL CHEMIST JORDAN RODRIGUEZ M.D. Performed By: #### C OVID-19 LIAT, SOFIANEG #### [facility] [address] [place] [address] [place] Platelets (Bld) [#/Vol] 359 10*3/uL Normal 150-450 [facility] Comment on above: Performed By: #### C OVID-19 LIAT, SOFIANEG #### [place] [address] [place] Polychromasia Slight Normal [facility] Comment on above: Performed By: #### C OVID-19 LIAT, SOFIANEG #### [address] RBC (Bld) [#/Vol] 3.66 10*6/uL Low 3.90-5.60 [facility] Comment on above: Performed By: #### C OVID-19 LIAT, SOFIANEG #### [address] Rouleaux Slight Normal [facility] Comment on above: Performed By: #### C OVID-19 LIAT, SOFIANEG #### [address] Segmented neutrophils/100 WBC (Bld) 87 % High 50-70 [facility] Comment on above: Performed By: #### C OVID-19 LIAT, SOFIANEG #### [address] WBC (Bld) [#/Vol] 11.2 10*3/uL High 4.5-11.0 [facility] Comment on above: Performed By: #### C OVID-19 LIAT, SOFIANEG #### [place] [address] [place] ECG 12 lead ECGon 08-24-2020 ECG 12 lead ECG [facility] [place] [address] [place] [address] Electrocardiograph Report Signed Patient: Rasahrd Lyman MR#: [id number] : 1960 Acct:[id number] Age/Sex: 60 / M ADM Date: 08/18/20 Loc: Room: [address] [place] [address] Type: ADM IN Attending Dr: Gordon Ewing [...] MD 08/24/20 0743 Signed By: 08/24/20 1049 [facility] Erythrocyte basophilic stipp ling detectionon 08-24-2020 Basophilic stippling LM Ql (Bld) Slight [facility] Glucose Poct Glucometerson 0 08-24-2020 Glucose [Mass/Vol] 129 mg/dL [facility] Comment on above: Result Comment: [facility] Glucose Reference Range is dependent on time and content of last meal. Glucose of more than 200 mg/dL in a nonstressed, ambulatory subject supports the diagnosis of Diabetes Mellitus. PERFORMED BY: [address] [place] [address] PATHOLOGIST ANALYTICAL CHEMIST JORDAN RODRIGUEZ M.D. Performed By: #### V BG #### Point of Care testing , Commemt1 Glu2: Cleaned Meter Normal [facility] Comment on above: Result Comment: PERF ORMED BY: [facility] [address] [place] [address] PATHOLOGIST ANALYTICAL CHEMIST JORDAN RODRIGUEZ M.D. Performed By: #### V BG #### Point of Care testing , Glucose [Mass/Vol] 108 mg/dL Normal [facility] Comment on above: Result Comment: [place] om Glucose Reference Range is dependent on time and content of last meal. Glucose of more than 200 mg/dL in a nonstressed, ambulatory subject supports the diagnosis of Diabetes Mellitus. Performed By: #### V BG #### Point of Care testing , Glucose [Mass/Vol] 60 mg/dL Off scale low [facility] Comment on above: Result Comment: [place] om Glucose Reference Range is dependent on time and content of last meal. Glucose of more than 200 mg/dL in a nonstressed, ambulatory subject supports the diagnosis of Diabetes Mellitus. PERFORMED BY: [place] [address] PATHOLOGIST ANALYTICAL CHEMIST JORDAN RODRIGUEZ M.D. Performed By: #### V BG #### Point of Care testing , Glucose [Mass/Vol] 130 mg/dL Normal [facility] Comment on above: Result Comment: [facility] Glucose Reference Range is dependent on time and content of last meal. Glucose of more than 200 mg/dL in a nonstressed, ambulatory subject supports the diagnosis of Diabetes Mellitus. PERFORMED BY: [place] [address] PATHOLOGIST ANALYTICAL CHEMIST JORDAN RODRIGUEZ M.D. Performed By: #### V BG #### Point of Care testing , Glucose [Mass/Vol] 72 mg/dL Normal [facility] Comment on above: Result Comment: [place] Glucose Reference Range is dependent on time and content of last meal. Glucose of more than 200 mg/dL in a nonstressed, ambulatory subject supports the diagnosis of Diabetes Mellitus. PERFORMED BY: [place] [id number] PATHOLOGIST ANALYTICAL CHEMIST JORDAN RODRIGUEZ M.D. Performed By: #### C OVID-19 BALJEET JOSUEEG #### [address] Glucose [Mass/Vol] 96 mg/dL Normal [facility] Comment on above: Result Comment: [place] Glucose Reference Range is dependent on time and content of last meal. Glucose of more than 200 mg/dL in a nonstressed, ambulatory subject supports the diagnosis of Diabetes Mellitus. PERFORMED BY: [place] [address] PATHOLOGIST ANALYTICAL CHEMIST JORDAN RODRIGUEZ M.D. Performed By: #### C OVID-19 LIAT SOFIANEG #### [address] Laboratory - Hematology and Cell countson 08-24-2020 Band form neutrophils/100 WBC (Bld) 1 % 0-5 [facility] Lymphocytes/100 WBC Auto (Bl d)on 08-24-2020 Lymphocytes/100 WBC (Bld) 6 % 18-42 [facility] Metamyelocytes/100 WBC Manua l cnt (Bld)on 08-24-2020 Metamyelocytes/100 WBC (Bld) 1 % 0-0 [facility] Monocytes/100 WBC Manual cnt (Bld)on 08-24-2020 Monocytes/100 WBC (Bld) 4 % 2-11 [facility] Myelocytes/100 WBC Manual cn t (Bld)on 08-24-2020 Myelocytes/100 WBC (Bld) 1 % 0-0 [facility] No [facility] Renal Function Panelon 08-24 Albumin [Mass/Vol] 1.9 g/dL Low 3.2-5.5 [facility] Comment on above: Performed By: #### C OVID-19 LIAT SOFIANEG #### [facility] [address] [place] [address] [place] Calcium [Mass/Vol] 8.8 mg/dL Normal 8.2-10.2 [facility] Comment on above: Performed By: #### C OVID-19 LIAT SOFIANEG #### [place] [address] [place] Chloride [Moles/Vol] 99 mmol/L Normal 95-114 [facility] Comment on above: Performed By: #### C OVID-19 LIAT SOFIANEG #### [facility] [address] [place] [address] [place] CO2 [Moles/Vol] 24.4 mmol/L Normal 22.0-30.0 [facility] Comment on above: Performed By: #### C OVID-19 LIAT SOFIANEG #### [facility] [address] Creatinine [Mass/Vol] 4.21 mg/dL High 0.64-1.27 [facility] Comment on above: Performed By: #### C OVID-19 LIAT, SOFIANEG #### [facility] [address] [place] [address] Creatinine Clr Calc Pharmacy 30.71 [facility] Comment on above: Result Comment: PERF ORMED BY: [place] [address] PATHOLOGIST ANALYTICAL CHEMIST JORDAN RODRIGUEZ M.D. Performed By: #### C OVID-19 LIAT, SOFIANEG #### [address] Estimated GFR ( Camilla 18 [facility] Comment on above: Result Comment: GFR estimated reference range: According to KDOQI guidelines, <60 ml/min/1.73m2 is sufficient to diagnose a patient with chronic kidney disease. Performed By: #### C OVID-19 LIAT SOFIANEG #### [address] Estimated GFR (Non- Am 15 [facility] Comment on above: Performed By: #### C OVID-19 LIAT SOFIANEG #### [address] Glucose [Mass/Vol] 79 mg/dL Normal 70-100 [facility] Comment on above: Result Comment: [place] om Glucose Reference Range is dependent on time and content of last meal. Glucose of more than 200 mg/dL in a nonstressed, ambulatory subject supports the diagnosis of Diabetes Mellitus. ADA recommended reference range Performed By: #### C OVID-19 LIAT, SOFIANEG #### [address] Phosphate [Mass/Vol] 5.9 mg/dL High 2.5-4.6 [facility] Comment on above: Performed By: #### C OVID-19 LIAT, SOFIANEG #### [facility] [address] [place] [address] Potassium [Moles/Vol] 4.2 mmol/L Normal 3.5-5.1 [facility] Comment on above: Performed By: #### C OVID-19 LIAT, SOFIANEG #### [facility] [address] [place] [address] Sodium [Moles/Vol] 134 mmol/L Low 136-146 [facility] Comment on above: Performed By: #### C OVID-19 LIAT, SOFIANEG #### [facility] [address] [place] [address] Urea nitrogen [Mass/Vol] 69 mg/dL High 9- [facility] Comment on above: Performed By: #### C OVID-19 LIAT, SOFIANEG #### [facility] [address] [place] [address] [place] Segmented neutrophils/100 WB C Manual cnt (Bld)on 08-24-2020 Segmented neutrophils/100 WBC (Bld) 87 % 50-70 [facility] KILLIAN Antinuclear Antibodieson 08-23-2020 Antinuclear Abs, IFA Negative Normal . [facility] Comment on above: Result Comment: Nega tive <1:80 Borderline 1:80 Positive >1:80 Performed at: - [address] [id number] Honing Machine Operator Semiautomatic: Mata Brian PhD, Phone: [phone] PERFORMED BY: [place] [address] PATHOLOGIST ANALYTICAL CHEMIST JORDAN RODRIGUEZ M.D. Performed By: #### P P #### [facility] [address] [place] [address] Complete Blood Count Auto Di ffon 08-23-2020 Basophils (Bld) [#/Vol] 0.0 10*3/uL Normal 0.0-0.2 [facility] Comment on above: Result Comment: PERF ORMED BY: [place] [address] PATHOLOGIST ANALYTICAL CHEMIST JORDAN RODRIGUEZ M.D. Performed By: #### C OVID-19 LIAT, SOFIANEG #### [facility] [address] [place] [address] Basophils/100 WBC (Bld) 0.3 % Normal . [facility] Comment on above: Performed By: #### C OVID-19 LIAT, SOFIANEG #### [facility] [address] [place] [address] Eosinophils (Bld) [#/Vol] 0.0 10*3/uL Normal 0.0-0.45 [facility] Comment on above: Performed By: #### C OVID-19 LIAT, SOFIANEG #### [facility] [address] [place] [address] Eosinophils/100 WBC (Bld) 0.1 % Normal . [facility] Comment on above: Performed By: #### C OVID-19 LIAT, SOFIANEG #### [facility] [address] [place] [address] Erythrocyte distribution width (RBC) [Ratio] 16.3 % High 12.0-14.8 [facility] Comment on above: Performed By: #### C OVID-19 LIAT, SOFIANEG #### [facility] [address] [place] [address] Hematocrit (Bld) [Volume fraction] 29.4 % Low 38.8-50.0 [facility] Comment on above: Performed By: #### C OVID-19 LIAT, SOFIANEG #### [facility] [address] [place] [address] Hemoglobin (Bld) [Mass/Vol] 9.4 g/dL Low 13.0-17.0 [facility] Comment on above: Performed By: #### C OVID-19 LIAT, SOFIANEG #### [facility] [address] [place] [address] Lymphocytes (Bld) [#/Vol] 0.5 10*3/uL Low 1.00-4.8 [facility] Comment on above: Performed By: #### C OVID-19 LIAT, SOFIANEG #### [facility] [address] [place] [address] Lymphocytes/100 WBC (Bld) 4.1 % Normal . [facility] Comment on above: Performed By: #### C OVID-19 LIAT, SOFIANEG #### [facility] [address] [place] [address] MCH (RBC) [Entitic mass] 26.2 pg Low 27.5-35.2 [facility] Comment on above: Performed By: #### C OVID-19 LIAT, SOFIANEG #### [address] MCV (RBC) [Entitic vol] 82.4 fL Low 83.5-101 [facility] Comment on above: Performed By: #### C OVID-19 LIAT, SOFIANEG #### [address] Mean Corpuscular HGB Conc 31.8 g/dL Low 32.5-35.6 [facility] Comment on above: Performed By: #### C OVID-19 LIAT, SOFIANEG #### [address] Monocytes (Bld) [#/Vol] 0.6 10*3/uL Normal 0.0-0.8 [facility] Comment on above: Performed By: #### C OVID-19 LIAT, SOFIANEG #### [address] Monocytes/100 WBC (Bld) 4.9 % Normal . [facility] Comment on above: Performed By: #### C OVID-19 LIAT, SOFIANEG #### [facility] [address] [place] [address] Neutrophils (Bld) [#/Vol] 11.2 10*3/uL High 1.8-7.7 [facility] Comment on above: Performed By: #### C OVID-19 LIAT, SOFIANEG #### [address] [place] [address] [place] Neutrophils/100 WBC (Bld) 90.6 % Normal . [facility] Comment on above: Performed By: #### C OVID-19 LIAT, SOFIANEG #### [facility] [address] [place] [address] [place] Nucleated RBC/100 WBC (Bld) [Ratio] 0.2 % Normal 0-0.5 [facility] Comment on above: Performed By: #### C OVID-19 LIAT, SOFIANEG #### [facility] [address] Platelet mean volume (Bld) [Entitic vol] 8.0 fL Normal 6.6-10.1 [facility] Comment on above: Performed By: #### C OVID-19 LIAT, SOFIANEG #### [facility] [address] Platelets (Bld) [#/Vol] 303 10*3/uL Normal 150-450 [facility] Comment on above: Performed By: #### C OVID-19 LIAT, SOFIANEG #### [facility] [address] [place] [address] [place] RBC (Bld) [#/Vol] 3.57 10*6/uL Low 3.90-5.60 [facility] Comment on above: Performed By: #### C OVID-19 LIAT, SOFIANEG #### [place] [address] [place] WBC (Bld) [#/Vol] 12.4 10*3/uL High 4.5-11.0 [facility] Comment on above: Performed By: #### C OVID-19 LIAT, SOFIANEG #### [place] [address] [place] ECG 12 lead ECGon 08-23-2020 ECG 12 lead ECG [facility] [address] [place] [address] [place] [address] Electrocardiograph Report Signed Patient: Rashard Lyman MR#: [id number] : 1960 Acct:[id number] Age/Sex: 60 / M ADM Date: 08/18/20 Loc: Room: [address] [place] [address] Type: ADM IN Attending Dr: Gordon Ewing [...] 08/23/20 0730 Signed By: 08/23/20 1047 Normal [facility] Glucose Poct Glucometerson 0 08-23-2020 Glucose [Mass/Vol] 160 mg/dL Normal [facility] Comment on above: Result Comment: [facility] Glucose Reference Range is dependent on time and content of last meal. Glucose of more than 200 mg/dL in a nonstressed, ambulatory subject supports the diagnosis of Diabetes Mellitus. PERFORMED BY: [place] [address] PATHOLOGIST ANALYTICAL CHEMIST JORDAN RODRIGUEZ M.D. Performed By: #### C OVID-19 DELGADO JOSUE #### [address] Glucose [Mass/Vol] 212 mg/dL Normal [facility] Comment on above: Result Comment: [facility] Glucose Reference Range is dependent on time and content of last meal. Glucose of more than 200 mg/dL in a nonstressed, ambulatory subject supports the diagnosis of Diabetes Mellitus. PERFORMED BY: [address] [place] [address] PATHOLOGIST ANALYTICAL CHEMIST JORDAN RODRIGUEZ M.D. Performed By: #### C OVID-19 LIAT SOFIANEG #### [facility] [address] [place], [place] [id number] [facility] Glucose [Mass/Vol] 159 mg/dL Normal [facility] Comment on above: Result Comment: [place] om Glucose Reference Range is dependent on time and content of last meal. Glucose of more than 200 mg/dL in a nonstressed, ambulatory subject supports the diagnosis of Diabetes Mellitus. PERFORMED BY: [place] [address] PATHOLOGIST ANALYTICAL CHEMIST JORDAN RODRIGUEZ M.D. Performed By: #### C OVID-19 LIAT, SOFIANEG #### [address] Glucose [Mass/Vol] 73 mg/dL Normal [facility] Comment on above: Result Comment: [place] om Glucose Reference Range is dependent on time and content of last meal. Glucose of more than 200 mg/dL in a nonstressed, ambulatory subject supports the diagnosis of Diabetes Mellitus. PERFORMED BY: [place] [address] PATHOLOGIST ANALYTICAL CHEMIST JORDAN RODRIGUEZ M.D. Performed By: #### C OVID-19 LIAT SOFIANEG #### [facility] [address] [place] [address] [place] Commemt1 Glu2: Cleaned Meter Normal [facility] Comment on above: Result Comment: PERF ORMED BY: [facility] [address] [place] [address] PATHOLOGIST ANALYTICAL CHEMIST JORDAN RODRIGUEZ M.D. Performed By: #### C OVID-19 LIAT, SOFIANEG #### [facility] [address] [place], [place] [address] [place] Glucose [Mass/Vol] 88 mg/dL Normal [facility] Comment on above: Result Comment: [place] om Glucose Reference Range is dependent on time and content of last meal. Glucose of more than 200 mg/dL in a nonstressed, ambulatory subject supports the diagnosis of Diabetes Mellitus. Performed By: #### C OVID-19 LIAT SOFIANEG #### [facility] [address] [place] [address] Commemt1 Glu2: Cleaned Meter [facility] Comment on above: Result Comment: PERF ORMED BY: [place] [address] PATHOLOGIST ANALYTICAL CHEMIST JORDAN RODRIGUEZ M.D. Performed By: #### C OVID-19 LIAT SOFIANEG #### [address] Glucose [Mass/Vol] 69 mg/dL [facility] Comment on above: Result Comment: [place] om Glucose Reference Range is dependent on time and content of last meal. Glucose of more than 200 mg/dL in a nonstressed, ambulatory subject supports the diagnosis of Diabetes Mellitus. Performed By: #### C OVID-19 LIAT SOFIANEG #### [facility] [address] [place] [address] Commemt1 [facility] Comment on above: Result Comment: Glu2 : Will Repeat Test Performed By: #### C OVID-19 LIAT SOFIANEG #### [address] Commemt2 WILL NOTIFY DR/RN [facility] Comment on above: Performed By: #### C OVID-19 LIAT SOFIANEG #### [facility] [address] [place] [address] Commemt3 Cleaned Meter [facility] Comment on above: Result Comment: PERF ORMED BY: [place] [address] PATHOLOGIST ANALYTICAL CHEMIST JORDAN RODRIGUEZ M.D. Performed By: #### C OVID-19 LIAT SOFIANEG #### [facility] [address] [place] [address] Glucose [Mass/Vol] 59 mg/dL Off scale low [facility] Comment on above: Result Comment: [place] om Glucose Reference Range is dependent on time and content of last meal. Glucose of more than 200 mg/dL in a nonstressed, ambulatory subject supports the diagnosis of Diabetes Mellitus. Performed By: #### C OVID-19 LIAT SOFIANEG #### [facility] [address] No Panel Informationon 08-23 Bedside Glucose #[address]/rn [facility] Bedside Glucose #3 Comment Cleaned meter [facility] Renal Function Panelon 08-23 Albumin [Mass/Vol] 1.9 g/dL Low 3.2-5.5 [facility] Comment on above: Performed By: #### C OVID-19 LIAT SOFIANEG #### [facility] [address] Calcium [Mass/Vol] 8.7 mg/dL Normal 8.2-10.2 [facility] Comment on above: Performed By: #### C OVID-19 LIAT SOFIANEG #### [facility] [address] [place] [address] [place] Chloride [Moles/Vol] 95 mmol/L Normal 95-114 [facility] Comment on above: Performed By: #### C OVID-19 LIAT SOFIANEG #### [facility] [address] [place] [address] [place] CO2 [Moles/Vol] 22.0 mmol/L Normal 22.0-30.0 [facility] Comment on above: Performed By: #### C OVID-19 LIAT SOFIANEG #### [facility] [address] [place] [address] [place] Creatinine [Mass/Vol] 4.79 mg/dL High 0.64-1.27 [facility] Comment on above: Performed By: #### C OVID-19 LIAT SOFIANEG #### [facility] [address] [place] [address] [place] Creatinine Clr Calc Pharmacy 27.33 Normal [facility] Comment on above: Result Comment: PERF ORMED BY: [facility] [address] [place] [id number] PATHOLOGIST ANALYTICAL CHEMIST JORDAN RODRIGUEZ M.D. Performed By: #### C OVID-19 LIAT SOFIANEG #### [facility] [address] Estimated GFR ( Camilla 15 [facility] Comment on above: Result Comment: GFR estimated reference range: According to KDOQI guidelines, <60 ml/min/1.73m2 is sufficient to diagnose a patient with chronic kidney disease. Performed By: #### C OVID-19 LIAT, SOFIANEG #### [facility] [address] Estimated GFR (Non- Am 13 [facility] Comment on above: Performed By: #### C OVID-19 LIAT SOFIANEG #### [address] Glucose [Mass/Vol] 78 mg/dL Normal 70-100 [facility] Comment on above: Result Comment: [place] om Glucose Reference Range is dependent on time and content of last meal. Glucose of more than 200 mg/dL in a nonstressed, ambulatory subject supports the diagnosis of Diabetes Mellitus. ADA recommended reference range Performed By: #### C OVID-19 LIAT, SOFIANEG #### [address] Phosphate [Mass/Vol] 7.5 mg/dL High 2.5-4.6 [facility] Comment on above: Performed By: #### C OVID-19 LIAT SOFIANEG #### [facility] [address] [place] [address] Potassium [Moles/Vol] 4.4 mmol/L Normal 3.5-5.1 [facility] Comment on above: Performed By: #### C OVID-19 LIAT SOFIANEG #### [facility] [address] Sodium [Moles/Vol] 131 mmol/L Low 136-146 [facility] Comment on above: Performed By: #### C OVID-19 LIAT SOFIANEG #### [facility] [address] Urea nitrogen [Mass/Vol] 63 mg/dL High 9-23 [facility] Comment on above: Performed By: #### C OVID-19 DELGADO JOSUE #### [facility] [address] Rheumatoid Factoron 08-24-19 Rheumatoid Factor 20.6 High 0.0-13.9 [facility] Comment on above: Result Comment: Perf ormed at: CB - [facility] [place] [address] Honing Machine Operator Semiautomatic: Mata Brian PhD, Phone: [phone] Performed By: #### P P #### [address] Serum nuclear antibody titer on 08-23-2020 Nuclear Ab (S) [Titer] Negative [facility] Comment on above: Negative <1:80 Borde rline 1:80 Positive >1:80Performed at: Front Up - [facility] [address] [id number] Director: Mata Brian PhD, Phone: [phone] Serum or plasma rheumatoid f actor measurement (units/volume)on 08-23-2020 Rheumatoid factor Qn 20.6 [IU]/mL [facility] Comment on above: Performed at: Front Up - [facility] [address] [id number] Director: Mata Brian PhD, Phone: [phone] Basic Metabolic Panelon 07-29 Calcium [Mass/Vol] 8.6 mg/dL Normal 8.2-10.2 [facility] Comment on above: Performed By: #### C MP, CBC, MG, TROP, BNP #### [address] Chloride [Moles/Vol] 94 mmol/L Low 95-114 [facility] Comment on above: Performed By: #### C MP, CBC, MG, TROP, BNP #### [address] CO2 [Moles/Vol] 21.4 mmol/L Low 22.0-30.0 [facility] Comment on above: Performed By: #### C MP, CBC, MG, TROP, BNP #### [address] Creatinine [Mass/Vol] 4.84 mg/dL High 0.64-1.27 [facility] Comment on above: Performed By: #### C MP, CBC, MG, TROP, BNP #### [address] Creatinine Clr Calc Pharmacy 27.02 [facility] Comment on above: Result Comment: PERF ORMED BY: [place] [address] PATHOLOGIST ANALYTICAL CHEMIST JORDAN RODRIGUEZ M.D. Performed By: #### C MP, CBC, MG, TROP, BNP #### [address] Estimated GFR ( Camilla 15 [facility] Comment on above: Result Comment: GFR estimated reference range: According to KDOQI guidelines, <60 ml/min/1.73m2 is sufficient to diagnose a patient with chronic kidney disease. Performed By: #### C MP, CBC, MG, TROP, BNP #### [address] Estimated GFR (Non- Am 12 [facility] Comment on above: Performed By: #### C MP, CBC, MG, TROP, BNP #### [address] Glucose [Mass/Vol] 154 mg/dL High 70-100 [facility] Comment on above: Result Comment: [place] om Glucose Reference Range is dependent on time and content of last meal. Glucose of more than 200 mg/dL in a nonstressed, ambulatory subject supports the diagnosis of Diabetes Mellitus. ADA recommended reference range Performed By: #### C MP, CBC, MG, TROP, BNP #### [address] Potassium [Moles/Vol] 4.9 mmol/L Normal 3.5-5.1 [facility] Comment on above: Performed By: #### C MP, CBC, MG, TROP, BNP #### [address] Sodium [Moles/Vol] 129 mmol/L Low 136-146 [facility] Comment on above: Performed By: #### C MP, CBC, MG, TROP, BNP #### [address] Urea nitrogen [Mass/Vol] 54 mg/dL High 9- [facility] Comment on above: Performed By: #### C MP, CBC, MG, TROP, BNP #### [address] biopsyon 08-22-2020 Transferrin [Mass/Vol] 104 mg/dL 180-380 [facility] Complete Blood Count Auto Di ffon 08-22-2020 Basophils (Bld) [#/Vol] 0.0 10*3/uL Normal 0.0-0.2 [facility] Comment on above: Result Comment: PERF ORMED BY: [place] [address] PATHOLOGIST ANALYTICAL CHEMIST JORDAN RODRIGUEZ M.D. Performed By: #### C MP, CBC, MG, TROP, BNP #### [address] Basophils/100 WBC (Bld) 0.2 % Normal . [facility] Comment on above: Performed By: #### C MP, CBC, MG, TROP, BNP #### [address] Eosinophils (Bld) [#/Vol] 0.0 10*3/uL Normal 0.0-0.45 [facility] Comment on above: Performed By: #### C MP, CBC, MG, TROP, BNP #### [address] Eosinophils/100 WBC (Bld) 0.1 % Normal . [facility] Comment on above: Performed By: #### C MP, CBC, MG, TROP, BNP #### [address] Erythrocyte distribution width (RBC) [Ratio] 16.4 % High 12.0-14.8 [facility] Comment on above: Performed By: #### C MP, CBC, MG, TROP, BNP #### [address] Hematocrit (Bld) [Volume fraction] 30.4 % Low 38.8-50.0 [facility] Comment on above: Performed By: #### C MP, CBC, MG, TROP, BNP #### [address] Hemoglobin (Bld) [Mass/Vol] 9.9 g/dL Low 13.0-17.0 [facility] Comment on above: Performed By: #### C MP, CBC, MG, TROP, BNP #### [address] Lymphocytes (Bld) [#/Vol] 0.6 10*3/uL Low 1.00-4.8 [facility] Comment on above: Performed By: #### C MP, CBC, MG, TROP, BNP #### [address] Lymphocytes/100 WBC (Bld) 5.6 % Normal . [facility] Comment on above: Performed By: #### C MP, CBC, MG, TROP, BNP #### [address] MCH (RBC) [Entitic mass] 27.1 pg Low 27.5-35.2 [facility] Comment on above: Performed By: #### C MP, CBC, MG, TROP, BNP #### [address] MCV (RBC) [Entitic vol] 83.4 fL Low 83.5-101 [facility] Comment on above: Performed By: #### C MP, CBC, MG, TROP, BNP #### [address] [address] [place] Mean Corpuscular HGB Conc 32.5 g/dL Normal 32.5-35.6 [facility] Comment on above: Performed By: #### C MP, CBC, MG, TROP, BNP #### [facility] [address] Monocytes (Bld) [#/Vol] 0.8 10*3/uL Normal 0.0-0.8 [facility] Comment on above: Performed By: #### C MP, CBC, MG, TROP, BNP #### [address] Monocytes/100 WBC (Bld) 7.7 % Normal . [facility] Comment on above: Performed By: #### C MP, CBC, MG, TROP, BNP #### [facility] [address] [place] [address] Neutrophils (Bld) [#/Vol] 9.5 10*3/uL High 1.8-7.7 [facility] Comment on above: Performed By: #### C MP, CBC, MG, TROP, BNP #### [facility] [address] [place] [address] Neutrophils/100 WBC (Bld) 86.4 % Normal . [facility] Comment on above: Performed By: #### C MP, CBC, MG, TROP, BNP #### [place] [address] [place] Nucleated RBC/100 WBC (Bld) [Ratio] 0.0 % Normal 0-0.5 [facility] Comment on above: Performed By: #### C MP, CBC, MG, TROP, BNP #### [facility] [address] [place] [address] [place] Platelet mean volume (Bld) [Entitic vol] 7.8 fL Normal 6.6-10.1 [facility] Comment on above: Performed By: #### C MP, CBC, MG, TROP, BNP #### [facility] [address] [place] [address] [place] Platelets (Bld) [#/Vol] 227 10*3/uL Normal 150-450 [facility] Comment on above: Performed By: #### C MP, CBC, MG, TROP, BNP #### [address] RBC (Bld) [#/Vol] 3.64 10*6/uL Low 3.90-5.60 [facility] Comment on above: Performed By: #### C MP, CBC, MG, TROP, BNP #### [address] WBC (Bld) [#/Vol] 11.0 10*3/uL Normal 4.5-11.0 [facility] Comment on above: Performed By: #### C MP, CBC, MG, TROP, BNP #### [address] ECG 12 lead ECGon 08-22-2020 ECG 12 lead ECG [facility] [place] [address] [place] [address] Electrocardiograph Report Signed Patient: Rashard Lyman MR#: [id number] : 1960 Acct:[id number] Age/Sex: 60 / M ADM Date: 08/18/20 Loc: Room: [address] [place] [address] Type: ADM IN Attending Dr: Gordon Ewing [...] MD 08/22/20 1221 Signed By: 08/23/20 1047 [facility] ECG 12 lead ECG [facility] [place] [address] Electrocardiograph Report Signed Patient: Rashard Lyman MR#: [id number] : 1960 Acct:[id number] Age/Sex: 60 / M ADM Date: 08/18/20 Loc: 4 Room: [address] [place] [address] Type: ADM IN Attending Dr: Gordon Ewing [...] MD 08/22/20 0751 Signed By: 08/22/20 1201 [facility] ECH echo transthoracicon ECH echo transthoracic [facility] Main [place] [id number] Echocardiogram Signed Patient: Rashard Lyman MR#: [id number] : 1960 Acct:[id number] Age/Sex: 60 / M ADM Date: 08/18/20 Loc: 4 Room: [address] [place] [address] Type: ADM IN Attending Dr: Gordon Ewing MD Ordering Provider: Gautam Bazan MD Date of Service: 08/22/20 ECH/ECH echo transthoracic: Pericarditis Copies to: Gautam Bazan [...] By: INEZ 08/22/20 1138 Dictated By: Gautam aBzan MD 08/22/20 1016 Signed By: 08/22/20 1138 Normal [facility] FE PROon 08-22-2020 % Iron Saturation 11.0 % Low 20-50 [facility] Comment on above: Performed By: #### C MP, CBC, MG, TROP, BNP #### [facility] [address] Ferritin [Mass/Vol] 334.8 ng/mL Normal 23.9-336.2 [facility] Comment on above: Result Comment: PERF ORMED BY: [place] [address] PATHOLOGIST ANALYTICAL CHEMIST JORDAN RODRIGUEZ M.D. Performed By: #### C MP, CBC, MG, TROP, BNP #### [facility] [address] Iron [Mass/Vol] 17 ug/dL Low 40-160 [facility] Comment on above: Performed By: #### C MP, CBC, MG, TROP, BNP #### [facility] [address] Total Iron Binding Capacity 146 ug/dL Low 255-450 [facility] Comment on above: Performed By: #### C MP, CBC, MG, TROP, BNP #### [facility] [address] Transferrin [Mass/Vol] 104 mg/dL Low 180-380 [facility] Comment on above: Performed By: #### C MP, CBC, MG, TROP, BNP #### [facility] [address] [place] [address] [place] Ferritin [Mass/volume] in Se rum or Plasmaon 08-22-2020 Ferritin [Mass/Vol] 334.8 ng/mL 23.9-336.2 [facility] Glucose Poct Glucometerson 0 08-22-2020 Commemt1 Glu2: Cleaned Meter Normal [facility] Comment on above: Result Comment: PERF ORMED BY: [facility] [address] [place] [address] PATHOLOGIST ANALYTICAL CHEMIST JORDAN RODRIGUEZ M.D. Performed By: #### C OVID-19 LIAT, SOFIANEG #### [facility] [address] [place] [id number] [place] Glucose [Mass/Vol] 81 mg/dL Normal [facility] Comment on above: Result Comment: [place] om Glucose Reference Range is dependent on time and content of last meal. Glucose of more than 200 mg/dL in a nonstressed, ambulatory subject supports the diagnosis of Diabetes Mellitus. Performed By: #### C OVID-19 LIAT, SOFIANEG #### [place] [address] [place] Glucose [Mass/Vol] 106 mg/dL Normal [facility] Comment on above: Result Comment: [place] om Glucose Reference Range is dependent on time and content of last meal. Glucose of more than 200 mg/dL in a nonstressed, ambulatory subject supports the diagnosis of Diabetes Mellitus. PERFORMED BY: [place] [address] PATHOLOGIST ANALYTICAL CHEMIST JORDAN RODRIGUEZ M.D. Performed By: #### C OVID-19 LIAT, SOFIANEG #### [place] [id number] [place] Glucose [Mass/Vol] 158 mg/dL Normal [facility] Comment on above: Result Comment: [place] om Glucose Reference Range is dependent on time and content of last meal. Glucose of more than 200 mg/dL in a nonstressed, ambulatory subject supports the diagnosis of Diabetes Mellitus. PERFORMED BY: [place] [address] PATHOLOGIST ANALYTICAL CHEMIST JORDAN RODRIGUEZ M.D. Performed By: #### C OVID-19 LIAT, SOFIANEG #### [place] [id number] [place] Glucose [Mass/Vol] 138 mg/dL Normal [facility] Comment on above: Result Comment: [place] om Glucose Reference Range is dependent on time and content of last meal. Glucose of more than 200 mg/dL in a nonstressed, ambulatory subject supports the diagnosis of Diabetes Mellitus. PERFORMED BY: [place] [address] PATHOLOGIST ANALYTICAL CHEMIST JORDAN RODRIGUEZ M.D. Performed By: #### C MP, CBC, MG, TROP, BNP #### [address] Glucose [Mass/Vol] 177 mg/dL Normal [facility] Comment on above: Result Comment: [facility] Glucose Reference Range is dependent on time and content of last meal. Glucose of more than 200 mg/dL in a nonstressed, ambulatory subject supports the diagnosis of Diabetes Mellitus. PERFORMED BY: [place] [address] PATHOLOGIST ANALYTICAL CHEMIST JORDAN RODRIGUEZ M.D. Performed By: #### C MP, CBC, MG, TROP, BNP #### [address] Iron [Mass/volume] in Serum or Plasmaon 08-22-2020 Iron [Mass/Vol] 17 ug/dL 40-160 [facility] Iron binding capacity [Mass/ volume] in Serum or Plasmaon 08-22-2020 Iron binding capacity [Mass/Vol] 146 ug/dL 255-450 [facility] Iron saturation [Mass Fracti on] in Serum or Plasmaon 08-22-2020 Iron saturation [Mass fraction] 11.0 % 20-50 [facility] Basic Metabolic Panelon 07-29 Calcium [Mass/Vol] 8.8 mg/dL Normal 8.2-10.2 [facility] Comment on above: Performed By: #### C MP, CBC, MG, TROP, BNP #### [place] [id number] [place] Chloride [Moles/Vol] 95 mmol/L Normal 95-114 [facility] Comment on above: Performed By: #### C MP, CBC, MG, TROP, BNP #### [address] CO2 [Moles/Vol] 24.4 mmol/L Normal 22.0-30.0 [facility] Comment on above: Performed By: #### C MP, CBC, MG, TROP, BNP #### [facility] [address] Creatinine [Mass/Vol] 4.31 mg/dL High 0.64-1.27 [facility] Comment on above: Performed By: #### C MP, CBC, MG, TROP, BNP #### [address] Creatinine Clr Calc Pharmacy 30.19 [facility] Comment on above: Result Comment: PERF ORMED BY: [place] [address] PATHOLOGIST ANALYTICAL CHEMIST JORDAN RODRIGUEZ M.D. Performed By: #### C MP, CBC, MG, TROP, BNP #### [address] Estimated GFR ( Camilla 17 [facility] Comment on above: Result Comment: GFR estimated reference range: According to KDOQI guidelines, <60 ml/min/1.73m2 is sufficient to diagnose a patient with chronic kidney disease. Performed By: #### C MP, CBC, MG, TROP, BNP #### [address] Estimated GFR (Non- Am 14 [facility] Comment on above: Performed By: #### C MP, CBC, MG, TROP, BNP #### [address] Glucose [Mass/Vol] 206 mg/dL High 70-100 [facility] Comment on above: Result Comment: [place] Glucose Reference Range is dependent on time and content of last meal. Glucose of more than 200 mg/dL in a nonstressed, ambulatory subject supports the diagnosis of Diabetes Mellitus. ADA recommended reference range Performed By: #### C MP, CBC, MG, TROP, BNP #### [address] Potassium [Moles/Vol] 4.3 mmol/L Normal 3.5-5.1 [facility] Comment on above: Performed By: #### C MP, CBC, MG, TROP, BNP #### [facility] [address] [place] [address] [place] Sodium [Moles/Vol] 131 mmol/L Low 136-146 [facility] Comment on above: Performed By: #### C MP, CBC, MG, TROP, BNP #### [facility] [address] Urea nitrogen [Mass/Vol] 44 mg/dL High 9- [facility] Comment on above: Performed By: #### C MP, CBC, MG, TROP, BNP #### [facility] [address] Creatine Kinaseon 08-21-2020 CK [Catalytic activity/Vol] 45 U/L Normal [facility] Comment on above: Performed By: #### C MP, CBC, MG, TROP, BNP #### [facility] [address] [place] [address] Creatine kinase [Enzymatic a ctivity/volume] in Serum or Plasmaon 08-21-2020 CK [Catalytic activity/Vol] 45 U/L [facility] Creatinine Kinase MBon 08-21 CK.MB [Mass/Vol] 2.3 ng/mL Normal 0.6-6.3 [facility] Comment on above: Performed By: #### C MP, CBC, MG, TROP, BNP #### [facility] [address] [place] [address] CKMB Relative Index 5.1 % High 0.00-2.50 [facility] Comment on above: Performed By: #### C MP, CBC, MG, TROP, BNP #### [facility] [address] [place] [address] [place] ECG 12 lead ECGon 08-21-2020 ECG 12 lead ECG [facility] Main [place] [address] [place] [address] Electrocardiograph Report Signed Patient: Rashard Lyman MR#: [id number] : 1960 Acct:[id number] Age/Sex: 60 / M ADM Date: 08/18/20 Loc: 4 Room: [address] [place] [address] Type: ADM IN Attending Dr: Eugene Morel [...] By: MUS Dictated By: Nir Ochoa DO 08/21/20 0956 Signed By: 08/21/202008 Normal [facility] ECG 12 lead ECG [facility] [place] [address] Electrocardiograph Report Signed Patient: Rashard Lyman MR#: [id number] : 1960 Acct:[id number] Age/Sex: 60 / M ADM Date: 08/18/20 Loc: Room: [address] [place] [address] Type: ADM IN Attending Dr: Eugene Morel [...] Ochoa DO 08/21/20 0828 Signed By: 08/21/202029 [facility] ECG 12 lead ECG [facility] Main [place] [id number] Electrocardiograph Report Signed Patient: Rashard Lyman MR#: [id number] : 1960 Acct:[id number] Age/Sex: 60 / M ADM Date: 08/18/20 Loc: Room: [address] [place] [address] Type: ADM IN Attending Dr: Eugene Morel [...] NURIA Dictated By: Nir Ochoa DO 08/21/20 0616 Signed By: 08/21/202053 [facility] Glucose Poct Glucometerson 0 08-21-2020 Glucose [Mass/Vol] 210 mg/dL [facility] Comment on above: Result Comment: [place] Glucose Reference Range is dependent on time and content of last meal. Glucose of more than 200 mg/dL in a nonstressed, ambulatory subject supports the diagnosis of Diabetes Mellitus. PERFORMED BY: [place] [id number] PATHOLOGIST ANALYTICAL CHEMIST JORDAN RODRIGUEZ M.D. Performed By: #### C MP, CBC, MG, TROP, BNP #### [address] Commemt1 Glu2: Cleaned Meter [facility] Comment on above: Result Comment: PERF ORMED BY: [place] [address] PATHOLOGIST ANALYTICAL CHEMIST JORDAN RODRIGUEZ M.D. Performed By: #### C MP, CBC, MG, TROP, BNP #### [address] Glucose [Mass/Vol] 136 mg/dL Normal [facility] Comment on above: Result Comment: [place] om Glucose Reference Range is dependent on time and content of last meal. Glucose of more than 200 mg/dL in a nonstressed, ambulatory subject supports the diagnosis of Diabetes Mellitus. Performed By: #### C MP, CBC, MG, TROP, BNP #### [address] Commemt1 Glu2: Cleaned Meter [facility] Comment on above: Result Comment: PERF ORMED BY: [place] [id number] PATHOLOGIST ANALYTICAL CHEMIST JORDAN RODRIGUEZ M.D. Performed By: #### C MP, CBC, MG, TROP, BNP #### [address] Glucose [Mass/Vol] 198 mg/dL Normal [facility] Comment on above: Result Comment: [place] om Glucose Reference Range is dependent on time and content of last meal. Glucose of more than 200 mg/dL in a nonstressed, ambulatory subject supports the diagnosis of Diabetes Mellitus. Performed By: #### C MP, CBC, MG, TROP, BNP #### [address] Commemt1 Glu2: Cleaned Meter [facility] Comment on above: Result Comment: PERF ORMED BY: [address] [place] [address] PATHOLOGIST ANALYTICAL CHEMIST JORDAN RODRIGUEZ M.D. Performed By: #### C MP, CBC, MG, TROP, BNP #### [address] Glucose [Mass/Vol] 221 mg/dL Normal [facility] Comment on above: Result Comment: [place] om Glucose Reference Range is dependent on time and content of last meal. Glucose of more than 200 mg/dL in a nonstressed, ambulatory subject supports the diagnosis of Diabetes Mellitus. Performed By: #### C MP, CBC, MG, TROP, BNP #### [address] Glucose [Mass/Vol] 210 mg/dL Normal [facility] Comment on above: Result Comment: [place] om Glucose Reference Range is dependent on time and content of last meal. Glucose of more than 200 mg/dL in a nonstressed, ambulatory subject supports the diagnosis of Diabetes Mellitus. PERFORMED BY: [place] [address] PATHOLOGIST ANALYTICAL CHEMIST JORDAN RODRIGUEZ M.D. Performed By: #### C MP, CBC, MG, TROP, BNP #### [address] No Panel Informationon 08-21 Dohle Bodies Slight [facility] Scan and CBCon 08-21-2020 Anisocytosis Ql (Bld) Slight Normal [facility] Comment on above: Performed By: #### C MP, CBC, MG, TROP, BNP #### [address] Basophils (Bld) [#/Vol] 0.0 10*3/uL Normal 0.0-0.2 [facility] Comment on above: Performed By: #### C MP, CBC, MG, TROP, BNP #### [address] Basophils/100 WBC (Bld) 0.3 % Normal . [facility] Comment on above: Performed By: #### C MP, CBC, MG, TROP, BNP #### [place] [address] [place] Dohle Bodies Slight Normal [facility] Comment on above: Performed By: #### C MP, CBC, MG, TROP, BNP #### [address] Eosinophils (Bld) [#/Vol] 0.5 10*3/uL High 0.0-0.45 [facility] Comment on above: Performed By: #### C MP, CBC, MG, TROP, BNP #### [address] Eosinophils/100 WBC (Bld) 3.2 % Normal . [facility] Comment on above: Performed By: #### C MP, CBC, MG, TROP, BNP #### [address] Erythrocyte distribution width (RBC) [Ratio] 16.6 % High 12.0-14.8 [facility] Comment on above: Performed By: #### C MP, CBC, MG, TROP, BNP #### [address] Hematocrit (Bld) [Volume fraction] 31.8 % Low 38.8-50.0 [facility] Comment on above: Performed By: #### C MP, CBC, MG, TROP, BNP #### [address] Hemoglobin (Bld) [Mass/Vol] 10.3 g/dL Low 13.0-17.0 [facility] Comment on above: Performed By: #### C MP, CBC, MG, TROP, BNP #### [address] Lymphocytes (Bld) [#/Vol] 1.2 10*3/uL Normal 1.00-4.8 [facility] Comment on above: Performed By: #### C MP, CBC, MG, TROP, BNP #### [address] Lymphocytes/100 WBC (Bld) 8.1 % Normal . [facility] Comment on above: Performed By: #### C MP, CBC, MG, TROP, BNP #### [address] MCH (RBC) [Entitic mass] 26.8 pg Low 27.5-35.2 [facility] Comment on above: Performed By: #### C MP, CBC, MG, TROP, BNP #### [address] MCV (RBC) [Entitic vol] 83.1 fL Low 83.5-101 [facility] Comment on above: Performed By: #### C MP, CBC, MG, TROP, BNP #### [address] Mean Corpuscular HGB Conc 32.3 g/dL Low 32.5-35.6 [facility] Comment on above: Performed By: #### C MP, CBC, MG, TROP, BNP #### [address] Monocytes (Bld) [#/Vol] 1.7 10*3/uL High 0.0-0.8 [facility] Comment on above: Performed By: #### C MP, CBC, MG, TROP, BNP #### [address] Monocytes/100 WBC (Bld) 11.4 % Normal . [facility] Comment on above: Performed By: #### C MP, CBC, MG, TROP, BNP #### [address] Neutrophils (Bld) [#/Vol] 11.2 10*3/uL High 1.8-7.7 [facility] Comment on above: Performed By: #### C MP, CBC, MG, TROP, BNP #### [address] Neutrophils/100 WBC (Bld) 77.0 % Normal . [facility] Comment on above: Performed By: #### C MP, CBC, MG, TROP, BNP #### [address] Nucleated RBC/100 WBC (Bld) [Ratio] 0.1 % Normal 0-0.5 [facility] Comment on above: Performed By: #### C MP, CBC, MG, TROP, BNP #### [address] Platelet Estimate Normal Normal Normal [facility] Comment on above: Performed By: #### C MP, CBC, MG, TROP, BNP #### [address] Platelet mean volume (Bld) [Entitic vol] 7.8 fL Normal 6.6-10.1 [facility] Comment on above: Performed By: #### C MP, CBC, MG, TROP, BNP #### [address] Platelet Morphology Normal Normal Normal [facility] Comment on above: Result Comment: PERF ORMED BY: [place] [address] PATHOLOGIST ANALYTICAL CHEMIST JORDAN RODRIGUEZ M.D. Performed By: #### C MP, CBC, MG, TROP, BNP #### [address] Platelets (Bld) [#/Vol] 265 10*3/uL Normal 150-450 [facility] Comment on above: Performed By: #### C MP, CBC, MG, TROP, BNP #### [address] RBC (Bld) [#/Vol] 3.83 10*6/uL Low 3.90-5.60 [facility] Comment on above: Performed By: #### C MP, CBC, MG, TROP, BNP #### [address] WBC (Bld) [#/Vol] 14.6 10*3/uL High 4.5-11.0 [facility] Comment on above: Performed By: #### C MP, CBC, MG, TROP, BNP #### [address] Serum or plasma cardiac trop onin I measurement (mass/volume)on 08-21-2020 Troponin I.cardiac [Mass/Vol] ng/mL 0-0.02 [facility] Comment on above: H[employer] Cut off value > or equal to 0.03 ng/mL in conjunction with clinical conditions of myocardial infarction.(www.escardio.org/guidelines) Serum or plasma creatine kin ase MB (CKMB)/total creatine kinase (CK) ratio by calculaon 08-21-2020 CK.MB Calc [Catalytic fraction] 5.1 % 0.00-2.50 [facility] Serum or plasma creatine kin ase MB measurement (mass/volume)on 08-21-2020 CK.MB [Mass/Vol] 2.3 ng/mL 0.6-6.3 [facility] Troponin I(TnI)on 08-21-2020 Troponin I.cardiac [Mass/Vol] ng/mL Normal 0-0.02 [facility] Comment on above: Result Comment: [place] Cut off value > or equal to 0.03 ng/mL in conjunction with clinical conditions of myocardial infarction. (www.escardio.org/guidelines) PERFORMED BY: [place] [address] PATHOLOGIST ANALYTICAL CHEMIST JORDAN RODRIGUEZ M.D. Performed By: #### C MP, CBC, MG, TROP, BNP #### [address] Troponin I.cardiac [Mass/Vol] ng/mL Normal 0-0.02 [facility] Comment on above: Result Comment: [place] Cut off value > or equal to 0.03 ng/mL in conjunction with clinical conditions of myocardial infarction. (www.escardio.org/guidelines) PERFORMED BY: [place] [address] PATHOLOGIST ANALYTICAL CHEMIST JORDAN RODRIGUEZ M.D. Performed By: #### C MP, CBC, MG, TROP, BNP #### [address] [place] [address] [place] Basic Metabolic Panelon 2 Calcium [Mass/Vol] 8.4 mg/dL Normal 8.2-10.2 [facility] Comment on above: Performed By: #### C MP, CBC, MG, TROP, BNP #### [facility] [address] Chloride [Moles/Vol] 99 mmol/L Normal 95-114 [facility] Comment on above: Performed By: #### C MP, CBC, MG, TROP, BNP #### [address] CO2 [Moles/Vol] 25.0 mmol/L Normal 22.0-30.0 [facility] Comment on above: Performed By: #### C MP, CBC, MG, TROP, BNP #### [address] Creatinine [Mass/Vol] 3.26 mg/dL High 0.64-1.27 [facility] Comment on above: Performed By: #### C MP, CBC, MG, TROP, BNP #### [address] Creatinine Clr Calc Pharmacy 39.92 [facility] Comment on above: Result Comment: PERF ORMED BY: [place] [address] PATHOLOGIST ANALYTICAL CHEMIST JORDAN RODRIGUEZ M.D. Performed By: #### C MP, CBC, MG, TROP, BNP #### [address] Estimated GFR ( Camilla 24 [facility] Comment on above: Result Comment: GFR estimated reference range: According to KDOQI guidelines, <60 ml/min/1.73m2 is sufficient to diagnose a patient with chronic kidney disease. Performed By: #### C MP, CBC, MG, TROP, BNP #### [address] Estimated GFR (Non- Am 19 [facility] Comment on above: Performed By: #### C MP, CBC, MG, TROP, BNP #### [address] Glucose [Mass/Vol] 205 mg/dL High 70-100 [facility] Comment on above: Result Comment: [place] Glucose Reference Range is dependent on time and content of last meal. Glucose of more than 200 mg/dL in a nonstressed, ambulatory subject supports the diagnosis of Diabetes Mellitus. ADA recommended reference range Performed By: #### C MP, CBC, MG, TROP, BNP #### [address] Potassium [Moles/Vol] 3.5 mmol/L Normal 3.5-5.1 [facility] Comment on above: Performed By: #### C MP, CBC, MG, TROP, BNP #### [address] Sodium [Moles/Vol] 131 mmol/L Low 136-146 [facility] Comment on above: Performed By: #### C MP, CBC, MG, TROP, BNP #### [place] [address] [place] Urea nitrogen [Mass/Vol] 35 mg/dL High 9- [facility] Comment on above: Performed By: #### C MP, CBC, MG, TROP, BNP #### [address] C-Reactive Proteinon 021 C-Reactive Protein 19.4 mg/dL High 0.0-1.0 [facility] Comment on above: Result Comment: PERF ORMED BY: [place] [address] PATHOLOGIST ANALYTICAL CHEMIST JORDAN RODRIGUEZ M.D. Performed By: #### C MP, CBC, MG, TROP, BNP #### [address] Erythrocyte Sedimentation Ra donato 08-20-2020 ESR (Bld) [Velocity] 108 mm/h High 0-19 [facility] Comment on above: Result Comment: PERF ORMED BY: [place] [address] PATHOLOGIST ANALYTICAL CHEMIST JORDAN RODRIGUEZ M.D. Performed By: #### C MP, CBC, MG, TROP, BNP #### [place] [id number] [facility] Erythrocyte sedimentation ra te by Photometric methodon 08-20-2020 ESR Photometric method (Bld) [Velocity] 108 mm/hr 0-19 [facility] Glucose Poct Glucometerson 0 08-20-2020 Glucose [Mass/Vol] 195 mg/dL Normal [facility] Comment on above: Result Comment: [place] om Glucose Reference Range is dependent on time and content of last meal. Glucose of more than 200 mg/dL in a nonstressed, ambulatory subject supports the diagnosis of Diabetes Mellitus. PERFORMED BY: [place] [address] PATHOLOGIST ANALYTICAL CHEMIST JORDAN RODRIGUEZ M.D. Performed By: #### C MP, CBC, MG, TROP, BNP #### [place] [id number] [facility] Glucose [Mass/Vol] 171 mg/dL Normal [facility] Comment on above: Result Comment: [place] om Glucose Reference Range is dependent on time and content of last meal. Glucose of more than 200 mg/dL in a nonstressed, ambulatory subject supports the diagnosis of Diabetes Mellitus. PERFORMED BY: [place] [address] PATHOLOGIST ANALYTICAL CHEMIST JORDAN RODRIGUEZ M.D. Performed By: #### C MP, CBC, MG, TROP, BNP #### [address] Glucose [Mass/Vol] 246 mg/dL Normal [facility] Comment on above: Result Comment: [place] om Glucose Reference Range is dependent on time and content of last meal. Glucose of more than 200 mg/dL in a nonstressed, ambulatory subject supports the diagnosis of Diabetes Mellitus. PERFORMED BY: [place] [address] PATHOLOGIST ANALYTICAL CHEMIST JORDAN RODRIGUEZ M.D. Performed By: #### C MP, CBC, MG, TROP, BNP #### [address] Glucose [Mass/Vol] 274 mg/dL Normal [facility] Comment on above: Result Comment: [place] om Glucose Reference Range is dependent on time and content of last meal. Glucose of more than 200 mg/dL in a nonstressed, ambulatory subject supports the diagnosis of Diabetes Mellitus. PERFORMED BY: [place] [address] PATHOLOGIST ANALYTICAL CHEMIST JORDAN RODRIGUEZ M.D. Performed By: #### C MP, CBC, MG, TROP, BNP #### [address] Glucose [Mass/Vol] 221 mg/dL Normal [facility] Comment on above: Result Comment: [place] om Glucose Reference Range is dependent on time and content of last meal. Glucose of more than 200 mg/dL in a nonstressed, ambulatory subject supports the diagnosis of Diabetes Mellitus. PERFORMED BY: [place] [address] PATHOLOGIST ANALYTICAL CHEMIST JORDAN RODRIGUEZ M.D. Performed By: #### C MP, CBC, MG, TROP, BNP #### [address] MR thoracic spine wo conon 0 08-20-2020 MR thoracic spine wo con [facility] [place] [address] [place] [address] MRI Report Signed Patient: Rashard Lyman MR#: [id number] : 1960 Acct:[id number] Age/Sex: 60 / M ADM Date: 08/18/20 Loc: Room: [address] [place] [address] Type: ADM IN Attending Dr: Eugene Morel DO Ordering Provider: Eugene Morel DO Date of Service: 08/20/20 MR/MR thoracic spine wo con: left rib cage pain, arises from about T 5-8 level Copies to: Eugene Morel, MRI THORACIC SPINE WITHOUT CONTRAST CLINICAL DATA: [...] Chitra Brantley M.D.08/20/2020 6:27 PM Dictation Location: [place] [address] Transcribed By: [facility] 08/20/201826 Dictated By: Chitra Brantley MD 08/20/201816 Signed By: 08/20/201826 Normal [facility] Scan and CBCon 08-20-2020 Anisocytosis Ql (Bld) Slight Normal [facility] Comment on above: Performed By: #### C MP, CBC, MG, TROP, BNP #### [facility] [address] Basophils (Bld) [#/Vol] 0.0 10*3/uL Normal 0.0-0.2 [facility] Comment on above: Performed By: #### C MP, CBC, MG, TROP, BNP #### [facility] [address] Basophils/100 WBC (Bld) 0.3 % Normal . [facility] Comment on above: Performed By: #### C MP, CBC, MG, TROP, BNP #### [place] [address] [place] Dohle Bodies Slight Normal [facility] Comment on above: Performed By: #### C MP, CBC, MG, TROP, BNP #### [address] Eosinophils (Bld) [#/Vol] 0.5 10*3/uL High 0.0-0.45 [facility] Comment on above: Performed By: #### C MP, CBC, MG, TROP, BNP #### [address] Eosinophils/100 WBC (Bld) 3.8 % Normal . [facility] Comment on above: Performed By: #### C MP, CBC, MG, TROP, BNP #### [address] Erythrocyte distribution width (RBC) [Ratio] 16.2 % High 12.0-14.8 [facility] Comment on above: Performed By: #### C MP, CBC, MG, TROP, BNP #### [address] Hematocrit (Bld) [Volume fraction] 32.1 % Low 38.8-50.0 [facility] Comment on above: Performed By: #### C MP, CBC, MG, TROP, BNP #### [address] Hemoglobin (Bld) [Mass/Vol] 10.4 g/dL Low 13.0-17.0 [facility] Comment on above: Performed By: #### C MP, CBC, MG, TROP, BNP #### [address] Lymphocytes (Bld) [#/Vol] 1.5 10*3/uL Normal 1.00-4.8 [facility] Comment on above: Performed By: #### C MP, CBC, MG, TROP, BNP #### [address] Lymphocytes/100 WBC (Bld) 11.0 % Normal . [facility] Comment on above: Performed By: #### C MP, CBC, MG, TROP, BNP #### [address] MCH (RBC) [Entitic mass] 26.7 pg Low 27.5-35.2 [facility] Comment on above: Performed By: #### C MP, CBC, MG, TROP, BNP #### [address] MCV (RBC) [Entitic vol] 82.2 fL Low 83.5-101 [facility] Comment on above: Performed By: #### C MP, CBC, MG, TROP, BNP #### [address] Mean Corpuscular HGB Conc 32.5 g/dL Normal 32.5-35.6 [facility] Comment on above: Performed By: #### C MP, CBC, MG, TROP, BNP #### [address] Monocytes (Bld) [#/Vol] 1.7 10*3/uL High 0.0-0.8 [facility] Comment on above: Performed By: #### C MP, CBC, MG, TROP, BNP #### [address] Monocytes/100 WBC (Bld) 12.5 % Normal . [facility] Comment on above: Performed By: #### C MP, CBC, MG, TROP, BNP #### [address] Neutrophils (Bld) [#/Vol] 9.7 10*3/uL High 1.8-7.7 [facility] Comment on above: Performed By: #### C MP, CBC, MG, TROP, BNP #### [address] Neutrophils/100 WBC (Bld) 72.4 % Normal . [facility] Comment on above: Performed By: #### C MP, CBC, MG, TROP, BNP #### [facility] [address] Nucleated RBC/100 WBC (Bld) [Ratio] 0.0 % Normal 0-0.5 [facility] Comment on above: Performed By: #### C MP, CBC, MG, TROP, BNP #### [facility] [address] Platelet Estimate Normal Normal Normal [facility] Comment on above: Performed By: #### C MP, CBC, MG, TROP, BNP #### [address] Platelet mean volume (Bld) [Entitic vol] 7.7 fL Normal 6.6-10.1 [facility] Comment on above: Performed By: #### C MP, CBC, MG, TROP, BNP #### [address] Platelet Morphology Normal Normal Normal [facility] Comment on above: Performed By: #### C MP, CBC, MG, TROP, BNP #### [address] Platelets (Bld) [#/Vol] 253 10*3/uL Normal 150-450 [facility] Comment on above: Performed By: #### C MP, CBC, MG, TROP, BNP #### [address] RBC (Bld) [#/Vol] 3.90 10*6/uL Normal 3.90-5.60 [facility] Comment on above: Performed By: #### C MP, CBC, MG, TROP, BNP #### [place] [address] [place] WBC (Bld) [#/Vol] 13.4 10*3/uL High 4.5-11.0 [facility] Comment on above: Performed By: #### C MP, CBC, MG, TROP, BNP #### [address] Serum or plasma C reactive p rotein measurement (mass/volume)on 08-20-2020 CRP [Mass/Vol] 19.4 mg/dL 0.0-1.0 [facility] A1C with Estimated Average G cole 08-19-2020 Glucose [Mass/Vol] 298 mg/dL Normal [facility] Comment on above: Result Comment: PERF ORMED BY: [place] [address] PATHOLOGIST ANALYTICAL CHEMIST JORDAN RODRIGUEZ M.D. Performed By: #### C MP, CBC, MG, TROP, BNP #### [address] HbA1c (Bld) [Mass fraction] 12.0 % High 4.3-5.6 [facility] Comment on above: Result Comment: Incr eased risk for diabetes: 5.7 - 6.4 diabetes: >6.4 glycemic control for adults with diabetes: <7.0 Performed By: #### C MP, CBC, MG, TROP, BNP #### [address] ABO and Rh group post transf usion reaction Nom (Bld)on 08-19-2020 Microscopic observation Gram stain Nom (Unsp spec) [facility] Aerobic Cultureon 08-19-2020 Aerobic Culture Light Normal Respira tory Edith 2 Days Gram Stain Result 2+ White Blood Cells 1+ Epithelial Cells 1+ Gram Positive Cocci PERFORMED BY: [place] [address] PATHOLOGIST ANALYTICAL CHEMIST JORDAN RODRIGUEZ M.D. Normal [facility] Comment on above: Performed By: #### C MP, CBC, MG, TROP, BNP #### [address] Basic Metabolic Panelon 07-29 Calcium [Mass/Vol] 8.4 mg/dL Normal 8.2-10.2 [facility] Comment on above: Performed By: #### C MP, CBC, MG, TROP, BNP #### [address] Chloride [Moles/Vol] 98 mmol/L Normal 95-114 [facility] Comment on above: Performed By: #### C MP, CBC, MG, TROP, BNP #### [address] CO2 [Moles/Vol] 25.3 mmol/L Normal 22.0-30.0 [facility] Comment on above: Performed By: #### C MP, CBC, MG, TROP, BNP #### [address] Creatinine [Mass/Vol] 3.04 mg/dL High 0.64-1.27 [facility] Comment on above: Performed By: #### C MP, CBC, MG, TROP, BNP #### [address] Creatinine Clr Calc Pharmacy 42.91 [facility] Comment on above: Performed By: #### C MP, CBC, MG, TROP, BNP #### [address] Estimated GFR ( Camilla 26 [facility] Comment on above: Result Comment: GFR estimated reference range: According to KDOQI guidelines, <60 ml/min/1.73m2 is sufficient to diagnose a patient with chronic kidney disease. Performed By: #### C MP, CBC, MG, TROP, BNP #### [address] Estimated GFR (Non- Am 21 [facility] Comment on above: Performed By: #### C MP, CBC, MG, TROP, BNP #### [address] Glucose [Mass/Vol] 328 mg/dL High 70-100 [facility] Comment on above: Result Comment: [place] Glucose Reference Range is dependent on time and content of last meal. Glucose of more than 200 mg/dL in a nonstressed, ambulatory subject supports the diagnosis of Diabetes Mellitus. ADA recommended reference range Performed By: #### C MP, CBC, MG, TROP, BNP #### [address] [place] [address] [facility] Potassium [Moles/Vol] 3.4 mmol/L Low 3.5-5.1 [facility] Comment on above: Performed By: #### C MP, CBC, MG, TROP, BNP #### [facility] [address] [place] [id number] [facility] Sodium [Moles/Vol] 131 mmol/L Low 136-146 [facility] Comment on above: Performed By: #### C MP, CBC, MG, TROP, BNP #### [facility] [address] [place] [id number] [facility] Urea nitrogen [Mass/Vol] 30 mg/dL High - [facility] Comment on above: Performed By: #### C MP, CBC, MG, TROP, BNP #### [place] [id number] [facility] CT abdomen pelvis wo conon 0 08-19-2020 CT abdomen pelvis wo con [facility] [place] [address] [place] [address] CT Scan Report Signed Patient: Rashard Lyman MR#: [id number] : 1960 Acct:[id number] Age/Sex: 60 / M ADM Date: 08/18/20 Loc: Room: [address] [place] [address] Type: ADM IN Attending Dr: Eugene Morel DO Ordering Provider: Eugene Morel DO Date of Service: 08/19/20 CT/CT abdomen pelvis wo con: left sided pain ([id number]) CT/CT chest wo con: left lung base [...] Hector Mckinney M.D.08/19/2020 8:01 PM Dictation Location: [place] [address] Transcribed By: [facility] 08/19/202000 Dictated By: Hector Mckinney II, MD 08/19/201947 Signed By: 08/19/202000 [facility] Glucose Poct Glucometerson 0 08-19-2020 Glucose [Mass/Vol] 266 mg/dL [facility] Comment on above: Result Comment: [place] om Glucose Reference Range is dependent on time and content of last meal. Glucose of more than 200 mg/dL in a nonstressed, ambulatory subject supports the diagnosis of Diabetes Mellitus. PERFORMED BY: [place] [address] PATHOLOGIST ANALYTICAL CHEMIST JORDAN RODRIGUEZ M.D. Performed By: #### C MP, CBC, MG, TROP, BNP #### [place] [address] [place] Glucose [Mass/Vol] 349 mg/dL Normal [facility] Comment on above: Result Comment: [place] om Glucose Reference Range is dependent on time and content of last meal. Glucose of more than 200 mg/dL in a nonstressed, ambulatory subject supports the diagnosis of Diabetes Mellitus. PERFORMED BY: [place] [address] PATHOLOGIST ANALYTICAL CHEMIST JORDAN RODRIGUEZ M.D. Performed By: #### C MP, CBC, MG, TROP, BNP #### [place] [address] [place] Glucose [Mass/Vol] 258 mg/dL Normal [facility] Comment on above: Result Comment: [place] om Glucose Reference Range is dependent on time and content of last meal. Glucose of more than 200 mg/dL in a nonstressed, ambulatory subject supports the diagnosis of Diabetes Mellitus. PERFORMED BY: [place] [address] PATHOLOGIST ANALYTICAL CHEMIST JORDAN RODRIGUEZ M.D. Performed By: #### C MP, CBC, MG, TROP, BNP #### [place] [address] [place] Glucose [Mass/Vol] 292 mg/dL Normal [facility] Comment on above: Result Comment: [place] om Glucose Reference Range is dependent on time and content of last meal. Glucose of more than 200 mg/dL in a nonstressed, ambulatory subject supports the diagnosis of Diabetes Mellitus. PERFORMED BY: [place] [address] PATHOLOGIST ANALYTICAL CHEMIST JORDAN RODRIGUEZ M.D. Performed By: #### C MP, CBC, MG, TROP, BNP #### [address] Commemt1 Glu2: Cleaned Meter [facility] Comment on above: Result Comment: PERF ORMED BY: [place] [address] PATHOLOGIST ANALYTICAL CHEMIST JORDAN RODRIGUEZ M.D. Performed By: #### C MP, CBC, MG, TROP, BNP #### [address] Glucose [Mass/Vol] 350 mg/dL [facility] Comment on above: Result Comment: [facility] Glucose Reference Range is dependent on time and content of last meal. Glucose of more than 200 mg/dL in a nonstressed, ambulatory subject supports the diagnosis of Diabetes Mellitus. Performed By: #### C MP, CBC, MG, TROP, BNP #### [address] Glucose mean value [Mass/vol ume] in Blood Estimated from glycated hemoglobinon 08-19-2020 Average glucose Estimated from glycated hemoglobin (Bld) [Mass/Vol] 298 mg/dL [facility] Gram Stainon 08-19-2020 Microscopic observation Gram stain Nom (Unsp spec) Gram Stain Result 2+ White Blood Cells 1+ Epithelial Cells 1+ Gram Positive Cocci PERFORMED BY: [place] [address] PATHOLOGIST ANALYTICAL CHEMIST JORDAN RODRIGUEZ M.D. [facility] Comment on above: Performed By: #### C MP, CBC, MG, TROP, BNP #### [address] Hemoglobin A1c percentageon 08-19-2020 HbA1c (Bld) [Mass fraction] 12.0 % 4.3-5.6 [facility] Comment on above: Increased risk for d iabetes: 5.7 - 6.4diabetes: >6.4glycemic control for adults with diabetes: <7.0 Laboratory - Chemistry and C hemistry - challengeon 08-19-2020 Magnesium [Mass/Vol] 2.0 mg/dL 1.6-2.6 [facility] Magnesiumon 08-19-2020 Magnesium [Mass/Vol] 2.0 mg/dL Normal 1.6-2.6 [facility] Comment on above: Performed By: #### C MP, CBC, MG, TROP, BNP #### [address] No Panel Informationon 08-19 25-Hydroxy Vitamin D Total 24.6 ng/mL 30-100 [facility] Comment on above: VITAMIN D STATUS 25( [place])VITAMIN D RANGE (ng/mL) Deficient <20 Insufficient 20 to <30Sufficient 30 to 100Reference: Aki MF,Oriana NGUYEN, Elli JONAS, et al. Evaluation,treatment, and prevention of vitamin D deficiency; an Endocrine Society clinical practice guideline. JCEM. 2010; 96(7):1911-30. Scan and CBCon 08-19-2020 Anisocytosis Ql (Bld) Slight Normal [facility] Comment on above: Performed By: #### C MP, CBC, MG, TROP, BNP #### [facility] [address] Basophils (Bld) [#/Vol] 0.1 10*3/uL Normal 0.0-0.2 [facility] Comment on above: Performed By: #### C MP, CBC, MG, TROP, BNP #### [address] Basophils/100 WBC (Bld) 0.8 % Normal . [facility] Comment on above: Performed By: #### C MP, CBC, MG, TROP, BNP #### [facility] [address] Eosinophils (Bld) [#/Vol] 0.4 10*3/uL Normal 0.0-0.45 [facility] Comment on above: Performed By: #### C MP, CBC, MG, TROP, BNP #### [facility] [address] [place] [address] [place] Eosinophils/100 WBC (Bld) 2.8 % Normal . [facility] Comment on above: Performed By: #### C MP, CBC, MG, TROP, BNP #### [address] Erythrocyte distribution width (RBC) [Ratio] 16.0 % High 12.0-14.8 [facility] Comment on above: Performed By: #### C MP, CBC, MG, TROP, BNP #### [address] Hematocrit (Bld) [Volume fraction] 32.4 % Low 38.8-50.0 [facility] Comment on above: Performed By: #### C MP, CBC, MG, TROP, BNP #### [address] Hemoglobin (Bld) [Mass/Vol] 10.5 g/dL Low 13.0-17.0 [facility] Comment on above: Performed By: #### C MP, CBC, MG, TROP, BNP #### [address] Lymphocytes (Bld) [#/Vol] 1.6 10*3/uL Normal 1.00-4.8 [facility] Comment on above: Performed By: #### C MP, CBC, MG, TROP, BNP #### [address] Lymphocytes/100 WBC (Bld) 11.4 % Normal . [facility] Comment on above: Performed By: #### C MP, CBC, MG, TROP, BNP #### [address] MCH (RBC) [Entitic mass] 26.6 pg Low 27.5-35.2 [facility] Comment on above: Performed By: #### C MP, CBC, MG, TROP, BNP #### [address] MCV (RBC) [Entitic vol] 82.4 fL Low 83.5-101 [facility] Comment on above: Performed By: #### C MP, CBC, MG, TROP, BNP #### [address] Mean Corpuscular HGB Conc 32.3 g/dL Low 32.5-35.6 [facility] Comment on above: Performed By: #### C MP, CBC, MG, TROP, BNP #### [address] Monocytes (Bld) [#/Vol] 1.6 10*3/uL High 0.0-0.8 [facility] Comment on above: Performed By: #### C MP, CBC, MG, TROP, BNP #### [address] Monocytes/100 WBC (Bld) 11.7 % Normal . [facility] Comment on above: Performed By: #### C MP, CBC, MG, TROP, BNP #### [address] Neutrophils (Bld) [#/Vol] 10.2 10*3/uL High 1.8-7.7 [facility] Comment on above: Performed By: #### C MP, CBC, MG, TROP, BNP #### [address] Neutrophils/100 WBC (Bld) 73.3 % Normal . [facility] Comment on above: Performed By: #### C MP, CBC, MG, TROP, BNP #### [address] Nucleated RBC/100 WBC (Bld) [Ratio] 0.0 % Normal 0-0.5 [facility] Comment on above: Performed By: #### C MP, CBC, MG, TROP, BNP #### [address] Platelet Estimate Normal Normal Normal [facility] Comment on above: Performed By: #### C MP, CBC, MG, TROP, BNP #### [address] Platelet mean volume (Bld) [Entitic vol] 7.5 fL Normal 6.6-10.1 [facility] Comment on above: Performed By: #### C MP, CBC, MG, TROP, BNP #### [address] Platelet Morphology Normal Normal Normal [facility] Comment on above: Result Comment: PERF ORMED BY: [place] [address] PATHOLOGIST ANALYTICAL CHEMIST JORDAN RODRIGUEZ M.D. Performed By: #### C MP, CBC, MG, TROP, BNP #### [address] Platelets (Bld) [#/Vol] 249 10*3/uL Normal 150-450 [facility] Comment on above: Performed By: #### C MP, CBC, MG, TROP, BNP #### [address] RBC (Bld) [#/Vol] 3.93 10*6/uL Normal 3.90-5.60 [facility] Comment on above: Performed By: #### C MP, CBC, MG, TROP, BNP #### [address] WBC (Bld) [#/Vol] 14.0 10*3/uL High 4.5-11.0 [facility] Comment on above: Performed By: #### C MP, CBC, MG, TROP, BNP #### [address] US renal BIon 08-19-2020 US renal BI [facility] [place] [address] [place] [address] Ultrasound Report Signed Patient: Rashard Lyman MR#: [id number] : 1960 Acct:[id number] Age/Sex: 60 / M ADM Date: 08/18/20 Loc: Room: [address] [place] [address] Type: ADM IN Attending Dr: Eugene Morel [...] Hector Mckinney M.D.08/19/2020 6:09 PM Dictation Location: [place] [address] Tech: Sandra Sierra Transcribed By: JU 08/19/201808 Dictated By: Hector Mckinney II, MD 08/19/201807 Signed By: 08/19/201808 Normal [facility] Vitamin D 25 Hydroxy Totalon 08-19-2020 Vitamin D 25 Hydroxy Total 24.6 ng/mL Low 30-100 [facility] Comment on above: Result Comment: ADA MIN D STATUS 25([place])VITAMIN D RANGE (ng/mL) Deficient <20 Insufficient 20 to <30 Sufficient 30 to 100 Reference: Aki MF,Oriana NC, Elli JONAS, et al. Evaluation,treatment, and prevention of vitamin D deficiency; an Endocrine Society clinical practice guideline. JCEM. 2010; 96(7):1911-30. PERFORMED BY: [address] [address] PATHOLOGIST ANALYTICAL CHEMIST JORDAN RODRIGUEZ M.D. Performed By: #### C MP, CBC, MG, TROP, BNP #### [address] [address] [place] Activated partial thrombopla stin time (aPTT) in platelet poor plasma by coagulation aon 08-18-2020 aPTT Coag (PPP) [Time] 36.9 s 25.1-36.5 [facility] Albumin [Mass/volume] in Ser um or Plasmaon 08-18-2020 Albumin [Mass/Vol] 2.7 g/dL 3.2-5.5 [facility] B-Type Natriuretic Peptideon 08-18-2020 Natriuretic peptide B (Bld) [Mass/Vol] 48.0 pg/mL Normal 5-100 [facility] Comment on above: Result Comment: PERF ORMED BY: [place] [address] PATHOLOGIST ANALYTICAL CHEMIST JORDAN RODRIGUEZ M.D. Performed By: #### C MP, CBC, MG, TROP, BNP #### [address] Bacterial blood cultureon Bacteria identified Cx Nom (Bld) NO GROWTH 5 DAYS [facility] Basophils Auto (Bld) [#/Vol] on 08-18-2020 Basophils (Bld) [#/Vol] 0.0 10*3/uL 0.0-0.2 [facility] Basophils/100 WBC Auto (Bld) on 08-18-2020 Basophils/100 WBC (Bld) 0.3 % [facility] Beta Hydroxybuterateon 08-18 Beta Hydroxybuterate 0.44 mmol/L High 0.02-0.27 [facility] Comment on above: Result Comment: PERF ORMED BY: [place] [address] PATHOLOGIST ANALYTICAL CHEMIST JORDAN RODRIGUEZ M.D. Performed By: #### C MP, CBC, MG, TROP, BNP #### [address] Beta-hydroxybutyric acid faraz surementon 08-18-2020 Beta hydroxybutyrate [Mass/Vol] 0.44 mmol/L 0.02-0.27 [facility] BioFire Not Detectedon 08-18 BioFire Not Detected Not detected Normal Not Detecte [facility] Comment on above: Result Comment: This is a duplicate RP2.1 COVID (PCR) result to be used for statistical tracking purpose only. PERFORMED BY: [place] [address] PATHOLOGIST ANALYTICAL CHEMIST JORDAN RODRIGUEZ M.D. Performed By: #### C MP, CBC, MG, TROP, BNP #### [address] Blood Cultureon 08-18-2020 Bacteria identified Cx Nom (Bld) NO GROWTH 5 DAYS PERFORMED BY: [place] [address] PATHOLOGIST ANALYTICAL CHEMIST JORDAN RODRIGUEZ M.D. [facility] Comment on above: Performed By: #### C MP, CBC, MG, TROP, BNP #### [address] Bacteria identified Cx Nom (Bld) NO GROWTH 5 DAYS PERFORMED BY: [place] [address] PATHOLOGIST ANALYTICAL CHEMIST JORDAN RODRIGUEZ M.D. [facility] Comment on above: Performed By: #### C MP, CBC, MG, TROP, BNP #### [address] Blood hemoglobin measurement (mass/volume)on 08-18-2020 Hemoglobin (Bld) [Mass/Vol] 11.8 g/dL 13.0-17.0 [facility] Blood leukocytes automated c ount (number/volume)on 08-18-2020 WBC (Bld) [#/Vol] 15.3 10*3/uL 4.5-11.0 [facility] COVID-19 Antigenon 1 COVID-19 Antigen Healthcare Worker?: [...] its performance Liat Disclaimer characteristic determined by [employer] and Liat Disclaimer validated at [facility]. This Liat Disclaimer test has not been FDA cleared or approved. This Liat Disclaimer test has been authorized by FDA under an Emergency Use Liat Disclaimer Authorization (EUA). This test has been validated Liat Disclaimer in accordance with the FDA's Guidance Document (Policy Lait Disclaimer for Diagnostics Testing in Laboratories Certified [...] is terminated or revoked sooner. PERFORMED BY: [place] [address] PATHOLOGIST ANALYTICAL CHEMIST JORDAN RODRIGUEZ M.D. [facility] Comment on above: Performed By: #### C OVID-19 LIAT, SOFIANEG #### [address] COVID-19 Detected/Not Detect edon 08-18-2020 SARS-CoV-2 (COVID-19) RNA SUDHA+non-probe Ql (Nph) Not detected Not Detecte [facility] Comment on above: This is a duplicate RP2.1 COVID (PCR) result to be used for statistical tracking purpose only. COVID-19 SOFIAon 08-18-2020 SARS-CoV+SARS-CoV-2 (COVID-19) Ag IA.rapid Ql (Resp) Negative Negative [facility] Comment on above: This is a duplicate Liat SARS Antigen (AGUSTINA) result to be used for statistical tracking purpose only. Coagulation Profileon 2020 aPTT Coag (Bld) [Time] 36.9 s High 25.1-36.5 [facility] Comment on above: Order Comment: REDRA W FOR SHORT DRAW AND HEMOLYSIS Result Comment: PERF ORMED BY: [place] [address] PATHOLOGIST ANALYTICAL CHEMIST JORDAN RODRIGUEZ M.D. Performed By: #### P P #### [address] INR Coag (PPP) [Relative time] 1.0 {INR} Normal [facility] Comment on above: Order Comment: REDRA [...] 4.5 Performed By: #### P P #### [address] PT Coag (PPP) [Time] 11.7 s Normal 9.0-12.9 [facility] Comment on above: Order Comment: REDRA W FOR SHORT DRAW AND HEMOLYSIS Performed By: #### P P #### [address] Complete Blood Count Auto Di ffon 08-18-2020 Basophils (Bld) [#/Vol] 0.0 10*3/uL Normal 0.0-0.2 [facility] Comment on above: Result Comment: PERF ORMED BY: [place] [address] PATHOLOGIST ANALYTICAL CHEMIST JORDAN RODRIGUEZ M.D. Performed By: #### C MP, CBC, MG, TROP, BNP #### [address] Basophils/100 WBC (Bld) 0.3 % Normal . [facility] Comment on above: Performed By: #### C MP, CBC, MG, TROP, BNP #### [address] Eosinophils (Bld) [#/Vol] 0.5 10*3/uL High 0.0-0.45 [facility] Comment on above: Performed By: #### C MP, CBC, MG, TROP, BNP #### [address] [address] [place] Eosinophils/100 WBC (Bld) 3.4 % Normal . [facility] Comment on above: Performed By: #### C MP, CBC, MG, TROP, BNP #### [address] Erythrocyte distribution width (RBC) [Ratio] 16.3 % High 12.0-14.8 [facility] Comment on above: Performed By: #### C MP, CBC, MG, TROP, BNP #### [address] Hematocrit (Bld) [Volume fraction] 36.1 % Low 38.8-50.0 [facility] Comment on above: Performed By: #### C MP, CBC, MG, TROP, BNP #### [address] Hemoglobin (Bld) [Mass/Vol] 11.8 g/dL Low 13.0-17.0 [facility] Comment on above: Performed By: #### C MP, CBC, MG, TROP, BNP #### [address] Lymphocytes (Bld) [#/Vol] 0.9 10*3/uL Low 1.00-4.8 [facility] Comment on above: Performed By: #### C MP, CBC, MG, TROP, BNP #### [address] Lymphocytes/100 WBC (Bld) 6.1 % Normal . [facility] Comment on above: Performed By: #### C MP, CBC, MG, TROP, BNP #### [address] MCH (RBC) [Entitic mass] 27.2 pg Low 27.5-35.2 [facility] Comment on above: Performed By: #### C MP, CBC, MG, TROP, BNP #### [address] MCV (RBC) [Entitic vol] 83.5 fL Normal 83.5-101 [facility] Comment on above: Performed By: #### C MP, CBC, MG, TROP, BNP #### [address] Mean Corpuscular HGB Conc 32.6 g/dL Normal 32.5-35.6 [facility] Comment on above: Performed By: #### C MP, CBC, MG, TROP, BNP #### [address] Monocytes (Bld) [#/Vol] 1.5 10*3/uL High 0.0-0.8 [facility] Comment on above: Performed By: #### C MP, CBC, MG, TROP, BNP #### [address] Monocytes/100 WBC (Bld) 10.1 % Normal . [facility] Comment on above: Performed By: #### C MP, CBC, MG, TROP, BNP #### [address] Neutrophils (Bld) [#/Vol] 12.3 10*3/uL High 1.8-7.7 [facility] Comment on above: Performed By: #### C MP, CBC, MG, TROP, BNP #### [address] Neutrophils/100 WBC (Bld) 80.1 % Normal . [facility] Comment on above: Performed By: #### C MP, CBC, MG, TROP, BNP #### [address] Nucleated RBC/100 WBC (Bld) [Ratio] 0.1 % Normal 0-0.5 [facility] Comment on above: Performed By: #### C MP, CBC, MG, TROP, BNP #### [address] Platelet mean volume (Bld) [Entitic vol] 7.3 fL Normal 6.6-10.1 [facility] Comment on above: Performed By: #### C MP, CBC, MG, TROP, BNP #### [address] Platelets (Bld) [#/Vol] 249 10*3/uL Normal 150-450 [facility] Comment on above: Performed By: #### C MP, CBC, MG, TROP, BNP #### [address] RBC (Bld) [#/Vol] 4.32 10*6/uL Normal 3.90-5.60 [facility] Comment on above: Performed By: #### C MP, CBC, MG, TROP, BNP #### [address] WBC (Bld) [#/Vol] 15.3 10*3/uL High 4.5-11.0 [facility] Comment on above: Performed By: #### C MP, CBC, MG, TROP, BNP #### [address] Comprehensive Metabolic Pane babatunde 08-18-2020 Albumin [Mass/Vol] 2.7 g/dL Low 3.2-5.5 [facility] Comment on above: Performed By: #### C MP, CBC, MG, TROP, BNP #### [address] Albumin/Globulin [Mass ratio] 0.6 {ratio} Normal [facility] Comment on above: Performed By: #### C MP, CBC, MG, TROP, BNP #### [address] ALP [Catalytic activity/Vol] 88 U/L Normal 32-92 [facility] Comment on above: Performed By: #### C MP, CBC, MG, TROP, BNP #### [address] ALT [Catalytic activity/Vol] 13 U/L Normal 10-60 [facility] Comment on above: Performed By: #### C MP, CBC, MG, TROP, BNP #### [address] AST [Catalytic activity/Vol] 16 U/L Normal 10-42 [facility] Comment on above: Performed By: #### C MP, CBC, MG, TROP, BNP #### [address] Bilirubin [Mass/Vol] 0.7 mg/dL Normal 0.3-1.2 [facility] Comment on above: Performed By: #### C MP, CBC, MG, TROP, BNP #### [address] Calcium [Mass/Vol] 8.9 mg/dL Normal 8.2-10.2 [facility] Comment on above: Performed By: #### C MP, CBC, MG, TROP, BNP #### [address] Chloride [Moles/Vol] 95 mmol/L Normal 95-114 [facility] Comment on above: Performed By: #### C MP, CBC, MG, TROP, BNP #### [address] CO2 [Moles/Vol] 22.6 mmol/L Normal 22.0-30.0 [facility] Comment on above: Performed By: #### C MP, CBC, MG, TROP, BNP #### [address] Creatinine [Mass/Vol] 3.04 mg/dL High 0.64-1.27 [facility] Comment on above: Performed By: #### C MP, CBC, MG, TROP, BNP #### [address] Creatinine Clr Calc Pharmacy 38.57 [facility] Comment on above: Performed By: #### C MP, CBC, MG, TROP, BNP #### [address] Estimated GFR ( Camilla 26 [facility] Comment on above: Result Comment: GFR estimated reference range: According to KDOQI guidelines, <60 ml/min/1.73m2 is sufficient to diagnose a patient with chronic kidney disease. Performed By: #### C MP, CBC, MG, TROP, BNP #### [facility] [address] Estimated GFR (Non- Am 21 Normal [facility] Comment on above: Performed By: #### C MP, CBC, MG, TROP, BNP #### [facility] [address] Globulin (S) [Mass/Vol] 4.4 g/dL [facility] Comment on above: Performed By: #### C MP, CBC, MG, TROP, BNP #### [facility] [address] Glucose [Mass/Vol] 512 mg/dL Off scale high 70-100 [facility] Comment on above: Result Comment: Resu lts called at 1659 on 08/18/20 Random Glucose Reference Range is dependent on time and content of last meal. Glucose of more than 200 mg/dL in a nonstressed, ambulatory subject supports the diagnosis of Diabetes Mellitus. ADA recommended reference range Performed By: #### C MP, CBC, MG, TROP, BNP #### [facility] [address] Potassium [Moles/Vol] 4.2 mmol/L Normal 3.5-5.1 [facility] Comment on above: Performed By: #### C MP, CBC, MG, TROP, BNP #### [facility] [address] Protein [Mass/Vol] 7.1 g/dL Normal 6.1-7.9 [facility] Comment on above: Performed By: #### C MP, CBC, MG, TROP, BNP #### [facility] [address] Sodium [Moles/Vol] 128 mmol/L Low 136-146 [facility] Comment on above: Performed By: #### C MP, CBC, MG, TROP, BNP #### [facility] [address] Urea nitrogen [Mass/Vol] 27 mg/dL High 9-23 [facility] Comment on above: Performed By: #### C MP, CBC, MG, TROP, BNP #### [address] Creatinine and Glomerular fi ltration rate.predicted panel (S/P/Bld)on 08-18-2020 Creatinine [Mass/Vol] 3.04 mg/dL 0.64-1.27 [facility] ECG 12 lead ECGon 08-18-2020 ECG 12 lead ECG [facility] Main [place] [address] [place] [address] Electrocardiograph Report Signed Patient: Rashard Lyman MR#: [id number] : 1960 Acct:[id number] Age/Sex: 60 / M ADM Date: 08/18/20 Loc: Room: [address] [place] [address] Type: ADM IN Attending Dr: Eugene Morel [...] was found Confirmed by ADRIA PABON DO ([id number]) on 08/19/2020 10:02:40 AM Referred By: Electronically Signed By:ADRIA PABON DO Transcribed By: MUS Dictated By: Adria Pabon DO 08/18/20 1539 Signed By: 08/19/20 1002 Normal [facility] Eosinophils Auto (Bld) [#/Vo l]on 08-18-2020 Eosinophils (Bld) [#/Vol] 0.5 10*3/uL 0.0-0.45 [facility] Eosinophils/100 WBC Auto (Bl d)on 08-18-2020 Eosinophils/100 WBC (Bld) 3.4 % [facility] Erythrocyte distribution wid th Auto (RBC) [Ratio]on 08-18-2020 Erythrocyte distribution width (RBC) [Ratio] 16.3 % 12.0-14.8 [facility] Estimated glomerular filtrat ion rate (GFR) non- Americanon 08-18-2020 GFR/1.73 sq M.predicted among non-blacks MDRD (S/P/Bld) [Vol rate/Area] 21 mL/Min [facility] Globulin Calc (S) [Mass/Vol] on 08-18-2020 Globulin (S) [Mass/Vol] 4.4 g/dL [facility] Glucose Glucometer (BldC) [M ass/Vol]on 08-18-2020 Glucose [Mass/Vol] 388 mg/dL [facility] Comment on above: Random Glucose Refer ence Range is dependent on time and content of last meal. Glucose of more than 200 mg/dL in a nonstressed, ambulatory subject supports the diagnosis of Diabetes Mellitus. Glucose Poct Glucometerson 0 08-18-2020 Glucose [Mass/Vol] 388 mg/dL Normal [facility] Comment on above: Result Comment: [place] om Glucose Reference Range is dependent on time and content of last meal. Glucose of more than 200 mg/dL in a nonstressed, ambulatory subject supports the diagnosis of Diabetes Mellitus. PERFORMED BY: [place] [address] PATHOLOGIST ANALYTICAL CHEMIST JORDAN RODRIGUEZ M.D. Performed By: #### C MP, CBC, MG, TROP, BNP #### [address] Hematocrit Auto (Bld) [Volum e fraction]on 08-18-2020 Hematocrit (Bld) [Volume fraction] 36.1 % 38.8-50.0 [facility] Laboratory - Chemistry and C hemistry - challengeon 08-18-2020 CO2 [Moles/Vol] 25.7 mmol/L 24.0-29.0 [facility] HCO3 (Bld) [Moles/Vol] 24.3 mmol/L 23.0-29.0 [facility] Magnesium [Mass/Vol] 2.2 mg/dL 1.6-2.6 [facility] Natriuretic peptide B (Bld) [Mass/Vol] 48.0 pg/mL 5-100 [facility] Laboratory - Coagulationon 0 08-18-2020 PT Coag (PPP) [Time] 11.7 s 9.0-12.9 [facility] - Hematology and Cell countson 08-18-2020 Nucleated RBC/100 WBC (Bld) [Ratio] 0.1 % 0-0.5 [facility] Lymphocytes Auto (Bld) [#/Vo l]on 08-18-2020 Lymphocytes (Bld) [#/Vol] 0.9 10*3/uL 1.00-4.8 [facility] Lymphocytes/100 WBC Auto (Bl d)on 08-18-2020 Lymphocytes/100 WBC (Bld) 6.1 % [facility] MCH Auto (RBC) [Entitic mass ]on 08-18-2020 MCH (RBC) [Entitic mass] 27.2 pg 27.5-35.2 [facility] MCHC Auto (RBC) [Mass/Vol]on 08-18-2020 MCHC (RBC) [Mass/Vol] 32.6 g/dL 32.5-35.6 [facility] MCV Auto (RBC) [Entitic vol] on 08-18-2020 MCV (RBC) [Entitic vol] 83.5 fL 83.5-101 [facility] Magnesiumon 08-18-2020 Magnesium [Mass/Vol] 2.2 mg/dL Normal 1.6-2.6 [facility] Comment on above: Result Comment: PERF ORMED BY: [place] [address] PATHOLOGIST ANALYTICAL CHEMIST JORDAN RODRIGUEZ M.D. Performed By: #### C MP, CBC, MG, TROP, BNP #### [address] Monocytes Auto (Bld) [#/Vol] on 08-18-2020 Monocytes (Bld) [#/Vol] 1.5 10*3/uL 0.0-0.8 [facility] Monocytes/100 WBC Auto (Bld) on 08-18-2020 Monocytes/100 WBC (Bld) 10.1 % [facility] Neutrophils Auto (Bld) [#/Vo l]on 08-18-2020 Neutrophils (Bld) [#/Vol] 12.3 10*3/uL 1.8-7.7 [facility] Neutrophils/100 WBC Auto (Bl d)on 08-18-2020 Neutrophils/100 WBC (Bld) 80.1 % [facility] No Panel Informationon 08-18 Respiratory Panel (PCR) [facility] Blood Gas Critical Value See comment [facility] Comment on above: Critical Value fonseca d on: 08/18/2020 at 17:44 Blood Gas Sample Site Venous [facility] FiO2 21 % [facility] Venous Blood Base Excess -1.5 mmol/L -3.0-3.0 [facility] Venous Blood Oxygen Content 4.1 mmol/L 6.6-9.7 [facility] Venous Blood Oxygen Saturation 53.3 % 73.0-76.0 [facility] Venous Blood Partial Pressure CO2 45.2 mm[Hg] 38.0-50.0 [facility] Venous Blood Partial Pressure O2 24.4 mm[Hg] 35.0-45.0 [facility] Venous Blood pH 7.35 7.32-7.43 [facility] Estimated GFR () 26 mL/Min [facility] Comment on above: GFR estimated refere nce range: According to KDOQI guidelines, <60 ml/min/1.73m2 is sufficient to diagnose a patient with chronic kidney disease. Pharmacy Creatinine Clearance (Chem 38.57 [facility] Platelet mean volume Auto (B ld) [Entitic vol]on 08-18-2020 Platelet mean volume (Bld) [Entitic vol] 7.3 fL 6.6-10.1 [facility] Platelet poor plasma interna tional normalized ratio (INR) by coagulation assay (relaton 08-18-2020 INR Coag (PPP) [Relative time] 1.0 {INR} [facility] Comment on above: INR Therapeutic Rang [...] Platelets (Bld) [#/Vol] 249 10*3/uL 150-450 [facility] Protein [Mass/volume] in Ser um or Plasmaon 08-18-2020 Protein [Mass/Vol] 7.1 g/dL 6.1-7.9 [facility] RBC Auto (Bld) [#/Vol]on RBC (Bld) [#/Vol] 4.32 10*6/uL 3.90-5.60 [facility] Respiratory (Upper) Panel, P CRon 08-18-2020 Respiratory (Upper) Panel, PCR Adenovirus Not detected Bordetella parapertussis Not detected Chlamydia pneumoniae Not detected Coronavirus 229E Not detected Coronavirus HKU1 Not detected Coronavirus NL63 Not detected Coronavirus OC43 Not detected COVID19 Blank Space -- COVID19 Disclaimer This test was developed and its performance COVID19 Disclaimer characteristics determined by [employer], COVID19 Disclaimer Disease-2019 during the Public Health [...] sooner. COVID19 Disclaimer [employer]. and [facility] [place] [address]. This has not been FDA cleared or [...] COVID-19 Detected/Not Detected Not detected PERFORMED BY: [place] [address] PATHOLOGIST ANALYTICAL CHEMIST JORDAN RODRIGUEZ M.D. [facility] Comment on above: Performed By: #### C MP, CBC, MG, TROP, BNP #### [address] Serum or plasma alanine gomez otransferase measurement without P-5'-P (enzymatic activion 08-18-2020 ALT No additional P-5'-P [Catalytic activity/Vol] 13 U/L 1060 [facility] Serum or plasma albumin/glob ulin mass ratioon 08-18-2020 Albumin/Globulin [Mass ratio] 0.6 {ratio} [facility] Serum or plasma alkaline kayode sphatase measurement (enzymatic activity/volume)on 08-18-2020 ALP [Catalytic activity/Vol] 88 U/L 3292 [facility] Serum or plasma aspartate am inotransferase measurement (enzymatic activity/volume)on 08-18-2020 AST [Catalytic activity/Vol] 16 U/L 1042 [facility] Serum or plasma calcium joel urement (mass/volume)on 08-18-2020 Calcium [Mass/Vol] 8.9 mg/dL 8.2-10.2 [facility] Serum or plasma cardiac trop onin I measurement (mass/volume)on 08-18-2020 Troponin I.cardiac [Mass/Vol] ng/mL 0-0.02 [facility] Comment on above: HÉCTOR NV Cut off value > or equal to 0.03 ng/mL in conjunction with clinical conditions of myocardial infarction.(www.escardio.org/guidelines) Serum or plasma chloride faraz surement (moles/volume)on 08-18-2020 Chloride [Moles/Vol] 95 mmol/L 95-114 [facility] Serum or plasma glucose joel urement (mass/volume)on 08-18-2020 Glucose [Mass/Vol] 512 mg/dL 70-100 [facility] Comment on above: Results calledat 165 9 on 08/18/20 ADA recommended reference rangeRandom Glucose Reference Range is dependent on time and content of last meal. Glucose of more than 200 mg/dL in a nonstressed, ambulatory subject supports the diagnosis of Diabetes Mellitus. Serum or plasma potassium me asurement (moles/volume)on 08-18-2020 Potassium [Moles/Vol] 4.2 mmol/L 3.5-5.1 [facility] Serum or plasma sodium measu rement (moles/volume)on 08-18-2020 Sodium [Moles/Vol] 128 mmol/L 136-146 [facility] Serum or plasma total biliru bin measurement (mass/volume)on 08-18-2020 Bilirubin [Mass/Vol] 0.7 mg/dL 0.3-1.2 [facility] Serum or plasma total carbon dioxide measurement (moles/volume)on 08-18-2020 CO2 [Moles/Vol] 22.6 mmol/L 22.0-30.0 [facility] Serum or plasma urea nitroge n measurement (mass/volume)on 08-18-2020 Urea nitrogen [Mass/Vol] 27 mg/dL 9- [facility] Liat Ag Negativeon 08-19-19 Liat Ag Negative Negative Normal Negative [facility] Comment on above: Result Comment: This is a duplicate Liat SARS Antigen (AGUSTINA) result to be used for statistical tracking purpose only. PERFORMED BY: [facility] [place] [address] PATHOLOGIST ANALYTICAL CHEMIST JORDAN RODRIGUEZ M.D. Performed By: #### C OVID-19 LIAT, SOFIANEG #### [address] Troponin I(TnI)on 08-18-2020 Troponin I.cardiac [Mass/Vol] ng/mL Normal 0-0.02 [facility] Comment on above: Result Comment: HÉCTOR NV Cut off value > or equal to 0.03 ng/mL in conjunction with clinical conditions of myocardial infarction. (www.escardio.org/guidelines) PERFORMED BY: [place] [address] PATHOLOGIST ANALYTICAL CHEMIST JORDAN RODRIGUEZ M.D. Performed By: #### C MP, CBC, MG, TROP, BNP #### [facility] [address] [place] [address] Venous Blood Gason CO2 [Moles/Vol] 25.7 mmol/L Normal 24.0-29.0 [facility] Comment on above: Performed By: #### V BG #### Point of Care testing , HCO3 (Bld) [Moles/Vol] 24.3 mmol/L Normal 23.0-29.0 [facility] Comment on above: Performed By: #### V BG #### Point of Care testing , Respiratory Critical Normal [facility] Comment on above: Result Comment: Crit ical Value called on: 08/18/2020 at 17:44 PERFORMED BY: [place] [address] PATHOLOGIST ANALYTICAL CHEMIST JORDAN RODRIGUEZ M.D. Performed By: #### V BG #### Point of Care testing , VBG Base Excess -1.5 mmol/L Normal -3.0-3.0 [facility] Comment on above: Performed By: #### V BG #### Point of Care testing , VBG Draw Site Venous Normal [facility] Comment on above: Performed By: #### V BG #### Point of Care testing , VBG Frac Inspired O2 21 % Normal [facility] Comment on above: Performed By: #### V BG #### Point of Care testing , VBG O2 Content 4.1 mmol/L Low 6.6-9.7 [facility] Comment on above: Performed By: #### V BG #### Point of Care testing , VBG Oxygen Saturation 53.3 % Off scale low 73.0-76.0 [facility] Comment on above: Performed By: #### V BG #### Point of Care testing , VBG PCO2 45.2 mm[Hg] Normal 38.0-50.0 [facility] Comment on above: Performed By: #### V BG #### Point of Care testing , VBG PH Venous PH 7.35 Normal 7.32-7.43 [facility] Comment on above: Performed By: #### V BG #### Point of Care testing , VBG PO2 24.4 mm[Hg] Low 35.0-45.0 [facility] Comment on above: Performed By: #### V BG #### Point of Care testing , XR chest 1V portableon 08-18 XR chest 1V portable [facility] [place] [address] XRay Report Signed Patient: Rashard Lyman MR#: [id number] : 1960 Acct:[id number] Age/Sex: 60 / M ADM Date: 08/18/20 Loc: ER Room: Type: [facility] ER Attending Dr: Ordering Provider: Mariana Basilio [...] Chitra Brantley M.D.08/18/2020 4:24 PM Dictation Location: [place] [address] Transcribed By: [facility] 08/18/201623 Dictated By: Chitra Brantley MD 08/18/201622 Signed By: 08/18/201623 [facility] CBC COMPLETE BLOOD COUNTon 0 07-22-2020 Erythrocyte distribution width (RBC) [Ratio] 15.0 % Normal 11.5-15.0 [facility] Comment on above: Order Comment: No: D o not add to previous draw Performed By: #### [id number] #### [facility] [address] [place] [address], [facility] Hematocrit (Bld) [Volume fraction] 32.4 % Low 39.0-50.0 [facility] Comment on above: Order Comment: No: D o not add to previous draw Performed By: #### 8 [id number] #### [facility] [address] [place] [address], [facility] Hemoglobin (Bld) [Mass/Vol] 9.5 g/dL Low 13.0-17.0 [facility] Comment on above: Order Comment: No: D o not add to previous draw Performed By: #### 8 [id number] #### [facility] [address] [place] [address], [place] MCH (RBC) [Entitic mass] 26.7 pg Low 27.0-33.0 [facility] Comment on above: Order Comment: No: D o not add to previous draw Performed By: #### 8 [id number] #### [facility] [address] [place] [address], [place] MCHC (RBC) [Mass/Vol] 29.3 g/dL Low 32.0-35.0 [facility] Comment on above: Order Comment: No: D o not add to previous draw Performed By: #### 8 [id number] #### [facility] [address] [place] [address], [facility] MCV (RBC) [Entitic vol] 91.0 fL Normal 82.0-98.0 [facility] Comment on above: Order Comment: No: D o not add to previous draw Performed By: #### 8 [id number] #### [facility] [address] [place] [address], [facility] Nucleated RBC/100 WBC (Bld) [Ratio] 0 % Normal 0-0 [facility] Comment on above: Order Comment: No: D o not add to previous draw Performed By: #### 8 [id number] #### [facility] [address] [place] [address], [facility] PLAT CNT 276 10*3/uL Normal 150-400 [facility] Comment on above: Order Comment: No: D o not add to previous draw Performed By: #### 8 [id number] #### [facility] [address] [place] [address], [facility] RBC (Bld) [#/Vol] 3.56 10*6/uL Low 4.20-5.70 [facility] Comment on above: Order Comment: No: D o not add to previous draw Performed By: #### 8 [id number] #### [facility] [address] [place] [address], [place] [facility] WBC (Bld) [#/Vol] 8.61 10*3/uL Normal 4.00-10.60 [facility] Comment on above: Order Comment: No: D o not add to previous draw Performed By: #### 8 [id number] #### [facility] [address] [place] [id number], [facility] COMP METABOLIC PANELon 07-22 Albumin [Mass/Vol] 2.7 g/dL Low 3.5-5.7 [facility] Comment on above: Order Comment: No: D o not add to previous draw Performed By: #### 8 [id number] #### [facility] [address] [place] [address], [place] ALKALINE PHOSPH 70 IU/L Normal 34-104 [facility] Comment on above: Order Comment: No: D o not add to previous draw Performed By: #### 8 [id number] #### [facility] [address] [place] [address], [place] ALT [Catalytic activity/Vol] 4 U/L Low 7-52 [facility] Comment on above: Order Comment: No: D o not add to previous draw Performed By: #### 8 [id number] #### [facility] [address] [place] [address], [place] AST [Catalytic activity/Vol] 15 U/L Normal 13-39 [facility] Comment on above: Order Comment: No: D o not add to previous draw Performed By: #### 8 [id number] #### [facility] [address] [place] [address], [place] Bilirubin [Mass/Vol] 0.2 mg/dL Low 0.3-1.0 [facility] Comment on above: Order Comment: No: D o not add to previous draw Performed By: #### 8 [id number] #### [facility] [address] [place] [address], [place] Calcium [Mass/Vol] 8.9 mg/dL Normal 8.6-10.3 [facility] Comment on above: Order Comment: No: D o not add to previous draw Performed By: #### 8 [id number] #### [facility] [address] [place] [address], [place] Chloride [Moles/Vol] 109 mmol/L High 98-107 [facility] Comment on above: Order Comment: No: D o not add to previous draw Performed By: #### 8 [id number] #### [facility] [address] [place] [address], [place] CO2 [Moles/Vol] 24 mmol/L Normal 21-31 [facility] Comment on above: Order Comment: No: D o not add to previous draw Performed By: #### 8 [id number] #### [facility] [address] [place] [address], [facility] Creatinine [Mass/Vol] 3.39 mg/dL High 0.70-1.30 [facility] Comment on above: Order Comment: No: D o not add to previous draw Performed By: #### 8 [id number] #### [facility] [address] [place] [address], [facility] eGFR- 23 ml/min/1.73sq m Abnormal >60 [facility] Comment on above: Order Comment: No: D o not add to previous draw Performed By: #### 8 [id number] #### [facility] [address] [place] [address], [facility] eGFR- non- 19 ml/min/1.73sq m Abnormal >60 [facility] Comment on above: Order Comment: No: D o not add to previous draw Performed By: #### 8 [id number] #### [facility] [address] [place] [address], [place] Glucose [Mass/Vol] 90 mg/dL Normal 70-100 [facility] Comment on above: Order Comment: No: D o not add to previous draw Performed By: #### 8 [id number] #### [facility] [address] [place] [address], [place] Potassium [Moles/Vol] 4.4 mmol/L Normal 3.5-5.1 [facility] Comment on above: Order Comment: No: D o not add to previous draw Performed By: #### 8 [id number] #### [facility] [address] [place] [address], [place] Protein [Mass/Vol] 5.9 g/dL Low 6.0-8.3 [facility] Comment on above: Order Comment: No: D o not add to previous draw Performed By: #### 8 [id number] #### [facility] [address] [place] [address], [place] Sodium [Moles/Vol] 140 mmol/L Normal 136-145 [facility] Comment on above: Order Comment: No: D o not add to previous draw Performed By: #### 8 [id number] #### [facility] [address] [place] [address], [place] Urea nitrogen [Mass/Vol] 35 mg/dL High 7-25 [facility] Comment on above: Order Comment: No: D o not add to previous draw Performed By: #### 8 [id number] #### [facility] [address] [place] [address], [place] POC GLUCOSE LABon 07-22-2020 Glucose [Mass/Vol] 192 mg/dL High 70-100 [facility] Comment on above: Performed By: #### 8 [id number] #### [facility] [address] [place] [address], [place] Glucose [Mass/Vol] 95 mg/dL Normal 70-100 [facility] Comment on above: Performed By: #### 5 7307, 92260 #### [facility] [address] [place] [address], [place] Glucose [Mass/Vol] 123 mg/dL High 70-100 [facility] Comment on above: Performed By: #### 8 [id number] ####[facility] [place] [address], [place] ARTERIAL BLOOD GAS WITH ICAo n 07-21-2020 BASE EXCESS -2 mmol/L Normal -2-3 [facility] Comment on above: Performed By: #### 8 [id number] #### [facility] [address] [place] [address], [place] [employer] SYSTEM[employer] FOCUS Normal [facility] Comment on above: Performed By: #### 8 [id number] #### [facility] [address] [place] [address], [facility] HCO3 (Bld) [Moles/Vol] 24 mmol/L Normal 21-28 [facility] Comment on above: Performed By: #### 8 [id number] #### [facility] [address] [facility] [place] [address], [facility] IONIZED CALCIUM 1.25 mmol/L Normal 1.13-1.32 [facility] Comment on above: Performed By: #### 8 [id number] #### [facility] [address] [facility] [place] [address], [facility] LPM 4.0 LPM Normal [facility] Comment on above: Performed By: #### 8 [id number] #### [facility] [address] [facility] [place] [address], [facility] MODALITY BIPAP Normal [facility] Comment on above: Performed By: #### 8 [id number] #### [facility] [address] [facility] [place] [address], [facility] Oxygen (Bld) [Partial pressure] 91 mm[Hg] Normal 83-108 [facility] Comment on above: Performed By: #### 8 [id number] #### [facility] [address] [facility] [place] [address], [facility] Oxygen saturation in Blood 95.9 % Normal 94.0-97.0 [facility] Comment on above: Performed By: #### 8 [id number] #### [facility] [address] [facility] [place] [address], [facility] PCO2 47 mmHg High 35-45 [facility] Comment on above: Performed By: #### 8 [id number] #### [facility] [address] [facility] [place] [address], [facility] PEEP 8.0 CMH20 Normal [facility] Comment on above: Performed By: #### 8 5499 #### [facility] [address] [facility] [place] [address], [facility] pH (Bld) 7.32 [pH] Low 7.35-7.45 [facility] Comment on above: Performed By: #### 8 [id number] #### [facility] [address] [place] [address], [facility] PRESSURE SUPPORT 16 Normal [facility] Comment on above: Performed By: #### 8 [id number] #### [facility] [address] [place] [address], [facility] BASE EXCESS -3 mmol/L Low -2-3 [facility] Comment on above: Performed By: #### 3 0318 #### [facility] [address] [place] [address], [facility] DELIVERY SYSTEMS NASAL CANNULA Normal [facility] Comment on above: Performed By: #### 3 8 #### [facility] [address] [place] [address], [facility] HCO3 (Bld) [Moles/Vol] 25 mmol/L Normal 21-28 [facility] Comment on above: Performed By: #### 3 0318 #### [facility] [address] [place] [address], [facility] IONIZED CALCIUM 1.26 mmol/L Normal 1.13-1.32 [facility] Comment on above: Performed By: #### 3 0318 #### [facility] [address] [place] [address], [facility] LPM 2.0 LPM Normal [facility] Comment on above: Performed By: #### 3 0318 #### [facility] [address] [place] [address], [facility] Oxygen (Bld) [Partial pressure] 92 mm[Hg] Normal 83-108 [facility] Comment on above: Performed By: #### 3 0318 #### [facility] [address] [place] [address], [facility] Oxygen saturation in Blood 95.7 % Normal 94.0-97.0 [facility] Comment on above: Performed By: #### 3 8 #### [facility] [address] [place] [address], [facility] PCO2 54 mmHg High 35-45 [facility] Comment on above: Performed By: #### 3 8 #### [facility] [address] [place] [address], [facility] pH (Bld) 7.27 [pH] Low 7.35-7.45 [facility] Comment on above: Performed By: #### 3 8 #### [facility] [address] [place] [address], [facility] BASIC METABOLIC PANELon 06-28 Calcium [Mass/Vol] 9.0 mg/dL Normal 8.6-10.3 [facility] Comment on above: Order Comment: No: D o not add to previous drawPt not in room rn will return when back. Performed By: #### 3 4 #### [facility] [address] [place] [address], [facility] Chloride [Moles/Vol] 106 mmol/L Normal 98-107 [facility] Comment on above: Order Comment: No: D o not add to previous drawPt not in room rn will return when back. Performed By: #### 3 1943 #### [facility] [address] [place] [address], [facility] CO2 [Moles/Vol] 25 mmol/L Normal 21-31 [facility] Comment on above: Order Comment: No: D o not add to previous drawPt not in room rn will return when back. Performed By: #### 3 1943 #### [facility] [address] [place] [address], [place] Creatinine [Mass/Vol] 3.75 mg/dL High 0.70-1.30 [facility] Comment on above: Order Comment: No: D o not add to previous drawPt not in room rn will return when back. Performed By: #### 3 1943 #### [facility] [address] [place] [address], [facility] eGFR- 20 ml/min/1.73sq m Abnormal >60 [facility] Comment on above: Order Comment: No: D o not add to previous drawPt not in room rn will return when back. Performed By: #### 3 1943 #### [facility] [address] [place] [address], [facility] eGFR- non- 17 ml/min/1.73sq m Abnormal >60 [facility] Comment on above: Order Comment: No: D o not add to previous drawPt not in room rn will return when back. Performed By: #### 3 1943 #### [facility] [address] [place] [address], [place] Glucose [Mass/Vol] 132 mg/dL High 70-100 [facility] Comment on above: Order Comment: No: D o not add to previous drawPt not in room rn will return when back. Performed By: #### 3 1943 #### [facility] [address] [place] [address], [place] Potassium [Moles/Vol] 5.0 mmol/L Normal 3.5-5.1 [facility] Comment on above: Order Comment: No: D o not add to previous drawPt not in room rn will return when back. Performed By: #### 3 1943 #### [facility] [address] [place] [address], [place] Sodium [Moles/Vol] 138 mmol/L Normal 136-145 [facility] Comment on above: Order Comment: No: D o not add to previous drawPt not in room rn will return when back. Performed By: #### 3 1943 #### [facility] [address] [place] [address], [place] Urea nitrogen [Mass/Vol] 37 mg/dL High 7-25 [facility] Comment on above: Order Comment: No: D o not add to previous drawPt not in room rn will return when back. Performed By: #### 3 1944 #### [facility] [address] [facility] CBC COMPLETE BLOOD COUNTon 0 07-21-2020 Erythrocyte distribution width (RBC) [Ratio] 15.0 % Normal 11.5-15.0 [facility] Comment on above: Order Comment: No: D o not add to previous drawPt not in room rn will return when back. Performed By: #### 8 [id number] #### [facility] [address] Hematocrit (Bld) [Volume fraction] 33.9 % Low 39.0-50.0 [facility] Comment on above: Order Comment: No: D o not add to previous drawPt not in room rn will return when back. Performed By: #### 8 [id number] #### [facility] [address] [place], [place] [address] Hemoglobin (Bld) [Mass/Vol] 9.9 g/dL Low 13.0-17.0 [facility] Comment on above: Order Comment: No: D o not add to previous drawPt not in room rn will return when back. Performed By: #### 8 5499 #### [facility] [address] [facility] [place] [address], [facility] MCH (RBC) [Entitic mass] 26.9 pg Low 27.0-33.0 [facility] Comment on above: Order Comment: No: D o not add to previous drawPt not in room rn will return when back. Performed By: #### 8 [id number] #### [facility] [address] [place] [id number], [facility] MCHC (RBC) [Mass/Vol] 29.2 g/dL Low 32.0-35.0 [facility] Comment on above: Order Comment: No: D o not add to previous drawPt not in room rn will return when back. Performed By: #### 8 5499 #### [facility] [address] [place] [address], [facility] MCV (RBC) [Entitic vol] 92.1 fL Normal 82.0-98.0 [facility] Comment on above: Order Comment: No: D o not add to previous drawPt not in room rn will return when back. Performed By: #### 8 [id number] #### [facility] [address] Nucleated RBC/100 WBC (Bld) [Ratio] 0 % Normal 0-0 [facility] Comment on above: Order Comment: No: D o not add to previous drawPt not in room rn will return when back. Performed By: #### 8 5499 #### [facility] [address] [place] [address], [facility] PLAT CNT 288 10*3/uL Normal 150-400 [facility] Comment on above: Order Comment: No: D o not add to previous drawPt not in room rn will return when back. Performed By: #### 8 5499 #### [facility] [address] [place] [address], [facility] RBC (Bld) [#/Vol] 3.68 10*6/uL Low 4.20-5.70 [facility] Comment on above: Order Comment: No: D o not add to previous drawPt not in room rn will return when back. Performed By: #### 8 5499 #### [facility] [address] [facility] [place] [address], [facility] WBC (Bld) [#/Vol] 9.51 10*3/uL Normal 4.00-10.60 [facility] Comment on above: Order Comment: No: D o not add to previous drawPt not in room rn will return when back. Performed By: #### 8 [id number] #### [facility] [address] CHEST WO CONTRASTon 07-21 CT CHEST WO CONTRAST [facility] Department of Radiology [address] [place] [address] Patient Name: RASHARD LYMAN : 1960 Sex: M Age: Race: White Pt. Location: [id number] Patient Status: I Ordered Date: 07/21/2020 6:00:00 [...] pneumonia. Electronically signed: Manuel Saldaña. Transcribed by: [email or web address], User Resident: Electronically Signed by: MANUEL SALDAÑA @ 07/21/2020 08:38 AM Normal [facility] Comment on above: Order Comment: Left Peural Effusion POC GLUCOSE LABon 07-21-2020 Glucose [Mass/Vol] 134 mg/dL High 70-100 [facility] Comment on above: Performed By: #### 5 0103 #### [facility] [address] [place] [address], [place] Glucose [Mass/Vol] 88 mg/dL Normal 70-100 [facility] Comment on above: Performed By: #### 8 5499 #### [facility] [address] [place] [address], [place] Glucose [Mass/Vol] 110 mg/dL High 70-100 [facility] Comment on above: Performed By: #### 8 5499 #### [facility] [address] [place] [address], [place] Glucose [Mass/Vol] 118 mg/dL High 70-100 [facility] Comment on above: Performed By: #### 5 7307, 25766 #### [facility] [address] [place] [address], [place] Glucose [Mass/Vol] 137 mg/dL High 70-100 [facility] Comment on above: Performed By: #### 5 7307, 14965 #### [facility] [address] [place] [address], [facility] BASIC METABOLIC PANELon 03-2 Calcium [Mass/Vol] 8.4 mg/dL Low 8.6-10.3 [facility] Comment on above: Order Comment: No: D o not add to previous draw Performed By: #### 8 5499 #### [facility] [address] [place] [address], [place] Chloride [Moles/Vol] 107 mmol/L Normal 98-107 [facility] Comment on above: Order Comment: No: D o not add to previous draw Performed By: #### 8 5499 #### [facility] [address] [place] [address], [place] CO2 [Moles/Vol] 23 mmol/L Normal 21-31 [facility] Comment on above: Order Comment: No: D o not add to previous draw Performed By: #### 8 5499 #### [facility] [address] [place] [address], [place] Creatinine [Mass/Vol] 3.95 mg/dL High 0.70-1.30 [facility] Comment on above: Order Comment: No: D o not add to previous draw Performed By: #### 8 5499 #### [facility] [address] [place] [address], [facility] eGFR- 19 ml/min/1.73sq m Abnormal >60 [facility] Comment on above: Order Comment: No: D o not add to previous draw Performed By: #### 8 5499 #### [facility] [address] [place] [address], [place] eGFR- non- 16 ml/min/1.73sq m Abnormal >60 [facility] Comment on above: Order Comment: No: D o not add to previous draw Performed By: #### 8 5499 #### [facility] [address] [place] [address], [facility] Glucose [Mass/Vol] 110 mg/dL High 70-100 [facility] Comment on above: Order Comment: No: D o not add to previous draw Performed By: #### 8 5499 #### [facility] [address] [place] [address], [facility] Potassium [Moles/Vol] 4.9 mmol/L Normal 3.5-5.1 [facility] Comment on above: Order Comment: No: D o not add to previous draw Performed By: #### 8 5499 #### [facility] [address] [place] [address], [facility] Sodium [Moles/Vol] 137 mmol/L Normal 136-145 [facility] Comment on above: Order Comment: No: D o not add to previous draw Performed By: #### 8 5499 #### [facility] [address] [place] [address], [facility] Urea nitrogen [Mass/Vol] 37 mg/dL High 7-25 [facility] Comment on above: Order Comment: No: D o not add to previous draw Performed By: #### 8 5499 #### [facility] [address] [place] [address], [facility] CBC W/DIFFon 07-20-2020 ABS IMM GRANS 0.1 10*3/uL Normal 0.0-0.2 [facility] Comment on above: Order Comment: No: D o not add to previous draw Performed By: #### 8 5499 #### [facility] [address] [place] [address], [place] ABS NEUTROPHILS 5.9 10*3/uL Normal 1.6-7.6 [facility] Comment on above: Order Comment: No: D o not add to previous draw Performed By: #### 8 [id number] #### [facility] [address] [place] [id number], [facility] Basophils (Bld) [#/Vol] 0.1 10*3/uL Normal 0.0-0.2 [facility] Comment on above: Order Comment: No: D o not add to previous draw Performed By: #### 8 5499 #### [facility] [address] [place] [address], [facility] Basophils/100 WBC (Bld) 1.0 % Normal 0.0-1.0 [facility] Comment on above: Order Comment: No: D o not add to previous draw Performed By: #### 8 [id number] #### [facility] [address] [place] [address], [facility] Eosinophils (Bld) [#/Vol] 0.4 10*3/uL Normal 0.0-0.5 [facility] Comment on above: Order Comment: No: D o not add to previous draw Performed By: #### 8 5499 #### [facility] [address] [place] [address], [facility] Eosinophils/100 WBC (Bld) 5.1 % Normal 0.0-6.0 [facility] Comment on above: Order Comment: No: D o not add to previous draw Performed By: #### 8 [id number] #### [facility] [address] [place] [address], [facility] Erythrocyte distribution width (RBC) [Ratio] 15.4 % High 11.5-15.0 [facility] Comment on above: Order Comment: No: D o not add to previous draw Performed By: #### 8 [id number] #### [facility] [address] [place] [id number], [facility] Hematocrit (Bld) [Volume fraction] 35.7 % Low 39.0-50.0 [facility] Comment on above: Order Comment: No: D o not add to previous draw Performed By: #### 8 [id number] #### [facility] [address] [facility] Hemoglobin (Bld) [Mass/Vol] 10.3 g/dL Low 13.0-17.0 [facility] Comment on above: Order Comment: No: D o not add to previous draw Performed By: #### 8 [id number] #### [facility] [address] [facility] [place] [address], [facility] IMM PLATELET FRAC 0.4 % Low 0.8-6.3 [facility] Comment on above: Order Comment: No: D o not add to previous draw Performed By: #### 8 5499 #### [facility] [address] [place] [address], [facility] IMMATURE GRANS 1.1 % High 0.0-1.0 [facility] Comment on above: Order Comment: No: D o not add to previous draw Performed By: #### 8 [id number] #### [facility] [address] [facility] [place] [address], [facility] Lymphocytes (Bld) [#/Vol] 0.8 10*3/uL Low 1.2-4.0 [facility] Comment on above: Order Comment: No: D o not add to previous draw Performed By: #### 8 [id number] #### [facility] [address] [place] [address], [facility] Lymphocytes/100 WBC (Bld) 9.3 % Low 20.0-45.0 [facility] Comment on above: Order Comment: No: D o not add to previous draw Performed By: #### 8 [id number] #### [facility] [address] [facility] [place] [address], [facility] MCH (RBC) [Entitic mass] 27.4 pg Normal 27.0-33.0 [facility] Comment on above: Order Comment: No: D o not add to previous draw Performed By: #### 8 [id number] #### [facility] [address] [facility] [place] [address], [facility] MCHC (RBC) [Mass/Vol] 28.9 g/dL Low 32.0-35.0 [facility] Comment on above: Order Comment: No: D o not add to previous draw Performed By: #### 8 [id number] #### [facility] [address] [place] [address], [facility] MCV (RBC) [Entitic vol] 94.9 fL Normal 82.0-98.0 [facility] Comment on above: Order Comment: No: D o not add to previous draw Performed By: #### 8 [id number] #### [facility] [address] [place] [id number], [facility] Monocytes (Bld) [#/Vol] 1.1 10*3/uL High 0.1-1.0 [facility] Comment on above: Order Comment: No: D o not add to previous draw Performed By: #### 8 [id number] #### [facility] [address] [place] [id number], [facility] MONOS 12.9 % High 5.0-12.0 [facility] Comment on above: Order Comment: No: D o not add to previous draw Performed By: #### 8 [id number] #### [facility] [address] [place] [id number], [facility] Neutrophils/100 WBC (Bld) 70.6 % Normal 40.0-72.0 [facility] Comment on above: Order Comment: No: D o not add to previous draw Performed By: #### 8 [id number] #### [facility] [address] [place] [address], [facility] Nucleated RBC/100 WBC (Bld) [Ratio] 0 % Normal 0-0 [facility] Comment on above: Order Comment: No: D o not add to previous draw Performed By: #### 8 [id number] #### [facility] [address] [place] [address], [place] PLAT ESTIMATE Normal Normal [facility] Comment on above: Order Comment: No: D o not add to previous draw Result Comment: EDTA smear shows platelet clumping, see platelet estimate Performed By: #### 8 [id number] #### [facility] [address] [place] [address], [facility] RBC (Bld) [#/Vol] 3.76 10*6/uL Low 4.20-5.70 [facility] Comment on above: Order Comment: No: D o not add to previous draw Performed By: #### 8 [id number] #### [facility] [address] [facility] [place] [address], [facility] WBC (Bld) [#/Vol] 8.30 10*3/uL Normal 4.00-10.60 [facility] Comment on above: Order Comment: No: D o not add to previous draw Performed By: #### 8 [id number] #### [facility] [address] [facility] [place] [address], [facility] POC GLUCOSE LABon 07-20-2020 Glucose [Mass/Vol] 110 mg/dL High 70-100 [facility] Comment on above: Performed By: #### 5 0103 #### [facility] [address] [place] [address], [facility] Glucose [Mass/Vol] 124 mg/dL High 70-100 [facility] Comment on above: Performed By: #### 5 0103 #### [facility] [address] [facility] [place] [address], [facility] Glucose [Mass/Vol] 111 mg/dL High 70-100 [facility] Comment on above: Performed By: #### 5 7307, 85593 #### [facility] [address] [place] [address], [facility] PORTABLE CHEST 1 VIEWon - PORTABLE CHEST 1 VIEW [facility] Department of Radiology [address] [place] [id number] Patient Name: RASHARD LYMAN : 1960 Sex: M Age: Race: White Pt. Location: [address] [place] [address] Patient Status: I Ordered Date: 07/20/2020 6:00:00 [...] unchanged Electronically signed: Manuel Saldaña. Transcribed by: [email or web address], User Resident: Electronically Signed by: MANUEL SALDAÑA @ 07/20/2020 09:07 AM Normal [facility] Comment on above: Order Comment: Evalu ate for Effusion BASIC METABOLIC PANELon 06-28 Calcium [Mass/Vol] 8.4 mg/dL Low 8.6-10.3 [facility] Comment on above: Order Comment: No: D o not add to previous draw Performed By: #### 3 1943 #### [facility] [address] [place] [address], [place] Chloride [Moles/Vol] 104 mmol/L Normal 98-107 [facility] Comment on above: Order Comment: No: D o not add to previous draw Performed By: #### 3 1943 #### [facility] [address] [place] [address], [place] CO2 [Moles/Vol] 24 mmol/L Normal 21-31 [facility] Comment on above: Order Comment: No: D o not add to previous draw Performed By: #### 3 1943 #### [facility] [address] [place] [address], [place] Creatinine [Mass/Vol] 4.15 mg/dL High 0.70-1.30 [facility] Comment on above: Order Comment: No: D o not add to previous draw Performed By: #### 3 1943 #### [facility] [address] [place] [address], [place] eGFR- 18 ml/min/1.73sq m Abnormal >60 [facility] Comment on above: Order Comment: No: D o not add to previous draw Performed By: #### 3 1943 #### [facility] [address] [place] [address], [place] eGFR- non- 15 ml/min/1.73sq m Abnormal >60 [facility] Comment on above: Order Comment: No: D o not add to previous draw Performed By: #### 3 1943 #### [facility] [address] [place] [address], [place] Glucose [Mass/Vol] 180 mg/dL High 70-100 [facility] Comment on above: Order Comment: No: D o not add to previous draw Performed By: #### 3 1943 #### [facility] [address] [place] [address], [place] Potassium [Moles/Vol] 4.4 mmol/L Normal 3.5-5.1 [facility] Comment on above: Order Comment: No: D o not add to previous draw Performed By: #### 3 1943 #### [facility] [address] [place] [address], [place] Sodium [Moles/Vol] 135 mmol/L Low 136-145 [facility] Comment on above: Order Comment: No: D o not add to previous draw Performed By: #### 3 1943 #### [facility] [address] [place] [address], [place] Urea nitrogen [Mass/Vol] 37 mg/dL High 7-25 [facility] Comment on above: Order Comment: No: D o not add to previous draw Performed By: #### 3 1943 #### [facility] [address] [place] [address], [facility] CBC COMPLETE BLOOD COUNTon 0 - Erythrocyte distribution width (RBC) [Ratio] 14.8 % Normal 11.5-15.0 [facility] Comment on above: Order Comment: No: D o not add to previous draw Performed By: #### 8 [id number] #### [facility] [address] [place] [address], [facility] Hematocrit (Bld) [Volume fraction] 30.9 % Low 39.0-50.0 [facility] Comment on above: Order Comment: No: D o not add to previous draw Performed By: #### 8 [id number] #### [facility] [address] [place] [address], [place] Hemoglobin (Bld) [Mass/Vol] 9.0 g/dL Low 13.0-17.0 [facility] Comment on above: Order Comment: No: D o not add to previous draw Performed By: #### 8 [id number] #### [facility] [address] [place] [address], [facility] MCH (RBC) [Entitic mass] 26.6 pg Low 27.0-33.0 [facility] Comment on above: Order Comment: No: D o not add to previous draw Performed By: #### 8 [id number] #### [facility] [address] [place] [id number], [facility] MCHC (RBC) [Mass/Vol] 29.1 g/dL Low 32.0-35.0 [facility] Comment on above: Order Comment: No: D o not add to previous draw Performed By: #### 8 [id number] #### [facility] [address] [place] [address], [facility] MCV (RBC) [Entitic vol] 91.4 fL Normal 82.0-98.0 [facility] Comment on above: Order Comment: No: D o not add to previous draw Performed By: #### 8 [id number] #### [facility] [address] [facility] [place] [address], [facility] Nucleated RBC/100 WBC (Bld) [Ratio] 0 % Normal 0-0 [facility] Comment on above: Order Comment: No: D o not add to previous draw Performed By: #### 8 [id number] #### [facility] [address] [facility] [place] [address], [facility] PLAT CNT 279 10*3/uL Normal 150-400 [facility] Comment on above: Order Comment: No: D o not add to previous draw Performed By: #### 8 [id number] #### [facility] [address] [facility] [place] [address], [facility] RBC (Bld) [#/Vol] 3.38 10*6/uL Low 4.20-5.70 [facility] Comment on above: Order Comment: No: D o not add to previous draw Performed By: #### 8 [id number] #### [facility] [address] [place], [place] [id number] [place] [address] WBC (Bld) [#/Vol] 6.73 10*3/uL Normal 4.00-10.60 [facility] Comment on above: Order Comment: No: D o not add to previous draw Performed By: #### 8 [id number] #### [facility] [address] Operative Reporton Operative Report MR#: [id number] I [facility] Pt. Name: [facility] Room #: [id number] Discharge Date: Birthdate: 1960 OPERATIVE REPORT DATE OF SURGERY: 07/19/2020 SURGEON: Nima Wynne MD Operative Note Medical Thoracoscopy, lysis of adhesions, pleural biopsy Procedure Date: 07/19/2020 Procedure: Medical Thoracoscopy, pleural biopsies, lysis of adhesions, and chest tube placement Preoperative Diagnosis: Loculated pleural effusion Post-operative Diagnosis: same Surgeons: Nima Wynne MD Sample Card Maker: Dvais Pham MD Type of Anesthesia: MAC per [...] Wynne MD Date Trans: 07/19/2020 02:43 P/ [id number] cc: Jose Juarez D.O. [address] [facility]. [facility] [address] Normal [facility] POC GLUCOSE LABon 07-19-2020 Glucose [Mass/Vol] 219 mg/dL High 70-100 [facility] Comment on above: Performed By: #### 5 7307, 60490 #### [facility] [address] [place] [address], [place] Glucose [Mass/Vol] 152 mg/dL High 70-100 [facility] Comment on above: Performed By: #### 5 7307, 42890 #### [facility] [address] [place] [address], [place] Glucose [Mass/Vol] 183 mg/dL High 70-100 [facility] Comment on above: Performed By: #### 5 0103 #### [facility] [address] [facility] [place] [address], [facility] Glucose [Mass/Vol] 206 mg/dL High 70-100 [facility] Comment on above: Performed By: #### 8 [id number] ####[facility] [facility] [place] [address], [facility] Glucose [Mass/Vol] 179 mg/dL High 70-100 [facility] Comment on above: Performed By: #### 5 0103 #### [facility] [address] [facility] [place] [address], [facility] PORTABLE CHEST 1 VIEWon 06-28 PORTABLE CHEST 1 VIEW [facility] Department of Radiology [address] [place] [id number] Patient Name: RASHARD LYMAN : 1960 Sex: M Age: Race: White Pt. Location: [address] [place] [address] Patient Status: I Ordered Date: 07/19/2020 2:20:00 [...] infiltration Electronically signed: Pedro Baldwin. Transcribed by: [email or web address], User Resident: PEDRO BALDWIN Electronically Signed by: PEDRO BALDWIN @ 07/19/2020 03:03 PM I personally read this/these film(s) with this resident Normal [facility] Comment on above: Order Comment: Check Chest Tube Position BASIC METABOLIC PANELon 06-28 Calcium [Mass/Vol] 8.4 mg/dL Low 8.6-10.3 [facility] Comment on above: Order Comment: No: D o not add to previous draw Performed By: #### 8 [id number] #### [facility] [address] [place] [address], [facility] Chloride [Moles/Vol] 105 mmol/L Normal 98-107 [facility] Comment on above: Order Comment: No: D o not add to previous draw Performed By: #### 8 [id number] #### [facility] [address] [place] [address], [place] CO2 [Moles/Vol] 25 mmol/L Normal 21-31 [facility] Comment on above: Order Comment: No: D o not add to previous draw Performed By: #### 8 [id number] #### [facility] [address] [place] [address], [facility] Creatinine [Mass/Vol] 4.54 mg/dL High 0.70-1.30 [facility] Comment on above: Order Comment: No: D o not add to previous draw Performed By: #### 8 5499 #### [facility] [address] [place] [address], [place] eGFR- 16 ml/min/1.73sq m Abnormal >60 [facility] Comment on above: Order Comment: No: D o not add to previous draw Performed By: #### 8 [id number] #### [facility] [address] [place] [address], [place] eGFR- non- 13 ml/min/1.73sq m Abnormal >60 [facility] Comment on above: Order Comment: No: D o not add to previous draw Performed By: #### 8 5499 #### [facility] [address] [place] [address], [place] Glucose [Mass/Vol] 118 mg/dL High 70-100 [facility] Comment on above: Order Comment: No: D o not add to previous draw Performed By: #### 8 5499 #### [facility] [address] [place] [address], [place] Potassium [Moles/Vol] 4.5 mmol/L Normal 3.5-5.1 [facility] Comment on above: Order Comment: No: D o not add to previous draw Performed By: #### 8 [id number] #### [facility] [address] [place] [address], [place] Sodium [Moles/Vol] 137 mmol/L Normal 136-145 [facility] Comment on above: Order Comment: No: D o not add to previous draw Performed By: #### 8 5499 #### [facility] [address] [place] [address], [place] Urea nitrogen [Mass/Vol] 40 mg/dL High 7-25 [facility] Comment on above: Order Comment: No: D o not add to previous draw Performed By: #### 8 [id number] #### [facility] [address] [place] [address], [place] CBC W/DIFFon 07-18-2020 ABS IMM GRANS 0.1 10*3/uL Normal 0.0-0.2 [facility] Comment on above: Order Comment: No: D o not add to previous draw Performed By: #### 8 [id number] #### [facility] [address] [place] [address], [facility] ABS NEUTROPHILS 5.0 10*3/uL Normal 1.6-7.6 [facility] Comment on above: Order Comment: No: D o not add to previous draw Performed By: #### 8 [id number] #### [facility] [address] [place] [address], [facility] Basophils (Bld) [#/Vol] 0.0 10*3/uL Normal 0.0-0.2 [facility] Comment on above: Order Comment: No: D o not add to previous draw Performed By: #### 8 [id number] #### [facility] [address] [place] [address], [facility] Basophils/100 WBC (Bld) 0.4 % Normal 0.0-1.0 [facility] Comment on above: Order Comment: No: D o not add to previous draw Performed By: #### 8 [id number] #### [facility] [address] [place] [address], [facility] Eosinophils (Bld) [#/Vol] 0.6 10*3/uL High 0.0-0.5 [facility] Comment on above: Order Comment: No: D o not add to previous draw Performed By: #### 8 [id number] #### [facility] [address] [place] [id number], [facility] Eosinophils/100 WBC (Bld) 6.8 % High 0.0-6.0 [facility] Comment on above: Order Comment: No: D o not add to previous draw Performed By: #### 8 [id number] #### [facility] [address] [place] [address], [facility] Erythrocyte distribution width (RBC) [Ratio] 14.8 % Normal 11.5-15.0 [facility] Comment on above: Order Comment: No: D o not add to previous draw Performed By: #### 8 [id number] #### [facility] [address] [place] [address], [facility] Hematocrit (Bld) [Volume fraction] 31.9 % Low 39.0-50.0 [facility] Comment on above: Order Comment: No: D o not add to previous draw Performed By: #### 8 [id number] #### [facility] [address] [place] [address], [facility] Hemoglobin (Bld) [Mass/Vol] 9.4 g/dL Low 13.0-17.0 [facility] Comment on above: Order Comment: No: D o not add to previous draw Performed By: #### 8 [id number] #### [facility] [address] [place] [address], [facility] IMMATURE GRANS 1.7 % High 0.0-1.0 [facility] Comment on above: Order Comment: No: D o not add to previous draw Performed By: #### 8 [id number] #### [facility] [address] [place] [address], [facility] Lymphocytes (Bld) [#/Vol] 1.2 10*3/uL Normal 1.2-4.0 [facility] Comment on above: Order Comment: No: D o not add to previous draw Performed By: #### 8 [id number] #### [facility] [address] [place] [id number], [facility] Lymphocytes/100 WBC (Bld) 14.8 % Low 20.0-45.0 [facility] Comment on above: Order Comment: No: D o not add to previous draw Performed By: #### 8 [id number] #### [facility] [address] [place] [address], [facility] MCH (RBC) [Entitic mass] 26.9 pg Low 27.0-33.0 [facility] Comment on above: Order Comment: No: D o not add to previous draw Performed By: #### 8 [id number] #### [facility] [address] [place] [address], [facility] MCHC (RBC) [Mass/Vol] 29.5 g/dL Low 32.0-35.0 [facility] Comment on above: Order Comment: No: D o not add to previous draw Performed By: #### 8 [id number] #### [facility] [address] [place] [address], [facility] MCV (RBC) [Entitic vol] 91.1 fL Normal 82.0-98.0 [facility] Comment on above: Order Comment: No: D o not add to previous draw Performed By: #### 8 [id number] #### [facility] [address] [place] [address], [facility] Monocytes (Bld) [#/Vol] 1.1 10*3/uL High 0.1-1.0 [facility] Comment on above: Order Comment: No: D o not add to previous draw Performed By: #### 8 [id number] #### [facility] [address] [place] [address], [facility] MONOS 13.4 % High 5.0-12.0 [facility] Comment on above: Order Comment: No: D o not add to previous draw Performed By: #### 8 [id number] #### [facility] [address] [place] [address], [facility] Neutrophils/100 WBC (Bld) 62.9 % Normal 40.0-72.0 [facility] Comment on above: Order Comment: No: D o not add to previous draw Performed By: #### 8 [id number] #### [facility] [address] [place] [address], [facility] Nucleated RBC/100 WBC (Bld) [Ratio] 0 % Normal 0-0 [facility] Comment on above: Order Comment: No: D o not add to previous draw Performed By: #### 8 [id number] #### [facility] [address] [place] [address], [facility] PLAT CNT 296 10*3/uL Normal 150-400 [facility] Comment on above: Order Comment: No: D o not add to previous draw Performed By: #### 8 [id number] #### [facility] [address] [place] [address], [facility] RBC (Bld) [#/Vol] 3.50 10*6/uL Low 4.20-5.70 [facility] Comment on above: Order Comment: No: D o not add to previous draw Performed By: #### 8 [id number] #### [facility] [address] [facility] [place] [address], [facility] WBC (Bld) [#/Vol] 8.03 10*3/uL Normal 4.00-10.60 [facility] Comment on above: Order Comment: No: D o not add to previous draw Performed By: #### 8 [id number] #### [facility] [address] [place] [address], [facility] POC GLUCOSE LABon 07-18-2020 Glucose [Mass/Vol] 192 mg/dL High 70-100 [facility] Comment on above: Performed By: #### 5 7307, 34880 #### [facility] [address] [place] [address], [place] Glucose [Mass/Vol] 153 mg/dL High 70-100 [facility] Comment on above: Performed By: #### 5 7307, 79390 #### [facility] [address] [place] [address], [place] Glucose [Mass/Vol] 80 mg/dL Normal 70-100 [facility] Comment on above: Performed By: #### 5 7307, 75915 #### [facility] [address] [place] [address], [facility] Glucose [Mass/Vol] 48 mg/dL Critically low 70-100 [facility] Comment on above: Order Comment: Left Peural Effusion Performed By: #### 8 [id number] ####[facility] [place] [address], [facility] Glucose [Mass/Vol] 120 mg/dL High 70-100 [facility] Comment on above: Performed By: #### 5 0103 #### [facility] [address] [facility] [place] [address], [facility] Glucose [Mass/Vol] 112 mg/dL High 70-100 [facility] Comment on above: Performed By: #### 5 7307, 00012 #### [facility] [address] [facility] [place] [address], [facility] POC SARS COV2 ANTIGEN NEGATI VEon 07-18-2020 POC SARS COV2 ANTIGEN NEG CANCELED Normal NEGATIVE [facility] Comment on above: Result Comment: The released value NEGATIVE was canceled by JULISAERSEduardo on 07/19/2020 07:11 Performed By: #### 3 1944 #### [facility] [address] [facility] [place] [address], [facility] POC SARS COV2 ANTIGEN NEG Negative Normal NEGATIVE [facility] Comment on above: Result Comment: Nega tive [...] Accreditation. Performed By: #### 8 [id number] #### [facility] [address] [facility]. [address] BASIC METABOLIC PANELon 03-2 Calcium [Mass/Vol] 8.2 mg/dL Low 8.6-10.3 [facility] Comment on above: Order Comment: No: D o not add to previous draw Performed By: #### 3 1943 #### [facility] [address] [facility] [place] [address], [facility] Chloride [Moles/Vol] 101 mmol/L Normal 98-107 [facility] Comment on above: Order Comment: No: D o not add to previous draw Performed By: #### 3 1943 #### [facility] [address] [facility] [place] [address], [facility] CO2 [Moles/Vol] 25 mmol/L Normal 21-31 [facility] Comment on above: Order Comment: No: D o not add to previous draw Performed By: #### 3 1943 #### [facility] [address] [facility] [place] [address], [facility] Creatinine [Mass/Vol] 3.64 mg/dL High 0.70-1.30 [facility] Comment on above: Order Comment: No: D o not add to previous draw Performed By: #### 3 1943 #### [facility] [address] [place] [address], [facility] eGFR- 21 ml/min/1.73sq m Abnormal >60 [facility] Comment on above: Order Comment: No: D o not add to previous draw Performed By: #### 3 1943 #### [facility] [address] [place] [id number], [facility] eGFR- non- 17 ml/min/1.73sq m Abnormal >60 [facility] Comment on above: Order Comment: No: D o not add to previous draw Performed By: #### 3 1943 #### [facility] [address] [place] [address], [facility] Glucose [Mass/Vol] 124 mg/dL High 70-100 [facility] Comment on above: Order Comment: No: D o not add to previous draw Performed By: #### 3 1943 #### [facility] [address] [place] [id number], [facility] Potassium [Moles/Vol] 4.3 mmol/L Normal 3.5-5.1 [facility] Comment on above: Order Comment: No: D o not add to previous draw Performed By: #### 3 1943 #### [facility] [address] [place] [address], [facility] Sodium [Moles/Vol] 134 mmol/L Low 136-145 [facility] Comment on above: Order Comment: No: D o not add to previous draw Performed By: #### 3 1943 #### [facility] [address] [place] [address], [facility] Urea nitrogen [Mass/Vol] 36 mg/dL High 7-25 [facility] Comment on above: Order Comment: No: D o not add to previous draw Performed By: #### 3 1943 #### [facility] [address] [place] [id number], [facility] CBC W/DIFFon 07-17-2020 ABS IMM GRANS 0.2 10*3/uL Normal 0.0-0.2 [facility] Comment on above: Order Comment: No: D o not add to previous draw Performed By: #### 8 [id number] #### [facility] [address] [place] [address], [facility] ABS NEUTROPHILS 5.8 10*3/uL Normal 1.6-7.6 [facility] Comment on above: Order Comment: No: D o not add to previous draw Performed By: #### 8 [id number] #### [facility] [address] [place] [address], [place] Basophils (Bld) [#/Vol] 0.1 10*3/uL Normal 0.0-0.2 [facility] Comment on above: Order Comment: No: D o not add to previous draw Performed By: #### 8 [id number] #### [facility] [address] [facility] [place] [address], [facility] Basophils/100 WBC (Bld) 0.6 % Normal 0.0-1.0 [facility] Comment on above: Order Comment: No: D o not add to previous draw Performed By: #### 8 [id number] #### [facility] [address] [facility] [place] [address], [facility] Eosinophils (Bld) [#/Vol] 0.6 10*3/uL High 0.0-0.5 [facility] Comment on above: Order Comment: No: D o not add to previous draw Performed By: #### 8 [id number] #### [facility] [address] [facility] [place] [address], [facility] Eosinophils/100 WBC (Bld) 7.0 % High 0.0-6.0 [facility] Comment on above: Order Comment: No: D o not add to previous draw Performed By: #### 8 [id number] #### [facility] [address] [facility] [place] [address], [place] Erythrocyte distribution width (RBC) [Ratio] 14.8 % Normal 11.5-15.0 [facility] Comment on above: Order Comment: No: D o not add to previous draw Performed By: #### 8 [id number] #### [facility] [address] Hematocrit (Bld) [Volume fraction] 30.0 % Low 39.0-50.0 [facility] Comment on above: Order Comment: No: D o not add to previous draw Performed By: #### 8 [id number] #### [facility] [address] [facility] [place] [address], [facility] Hemoglobin (Bld) [Mass/Vol] 9.2 g/dL Low 13.0-17.0 [facility] Comment on above: Order Comment: No: D o not add to previous draw Performed By: #### 8 [id number] #### [facility] [address] [place] [address], [facility] IMMATURE GRANS 1.7 % High 0.0-1.0 [facility] Comment on above: Order Comment: No: D o not add to previous draw Performed By: #### 8 5499 #### [facility] [address] [facility]. [address] Lymphocytes (Bld) [#/Vol] 1.3 10*3/uL Normal 1.2-4.0 [facility] Comment on above: Order Comment: No: D o not add to previous draw Performed By: #### 8 [id number] #### [facility] [address] [place] [address], [facility] Lymphocytes/100 WBC (Bld) 14.3 % Low 20.0-45.0 [facility] Comment on above: Order Comment: No: D o not add to previous draw Performed By: #### 8 [id number] #### [facility] [address] [facility] [place] [address], [facility] MCH (RBC) [Entitic mass] 27.3 pg Normal 27.0-33.0 [facility] Comment on above: Order Comment: No: D o not add to previous draw Performed By: #### 8 [id number] #### [facility] [address] [facility]. [place] MCHC (RBC) [Mass/Vol] 30.7 g/dL Low 32.0-35.0 [facility] Comment on above: Order Comment: No: D o not add to previous draw Performed By: #### 8 [id number] #### [facility] [address] [place] [id number], [facility] MCV (RBC) [Entitic vol] 89.0 fL Normal 82.0-98.0 [facility] Comment on above: Order Comment: No: D o not add to previous draw Performed By: #### 8 [id number] #### [facility] [address] [place] [address], [facility] Monocytes (Bld) [#/Vol] 1.0 10*3/uL Normal 0.1-1.0 [facility] Comment on above: Order Comment: No: D o not add to previous draw Performed By: #### 8 [id number] #### [facility] [address] [place] [address], [facility] MONOS 10.9 % Normal 5.0-12.0 [facility] Comment on above: Order Comment: No: D o not add to previous draw Performed By: #### 8 [id number] #### [facility] [address] [place] [address], [facility] Neutrophils/100 WBC (Bld) 65.5 % Normal 40.0-72.0 [facility] Comment on above: Order Comment: No: D o not add to previous draw Performed By: #### 8 [id number] #### [facility] [address] [place] [id number], [facility] Nucleated RBC/100 WBC (Bld) [Ratio] 0 % Normal 0-0 [facility] Comment on above: Order Comment: No: D o not add to previous draw Performed By: #### 8 [id number] #### [facility] [address] [place] [id number], [facility] PLAT CNT 293 10*3/uL Normal 150-400 [facility] Comment on above: Order Comment: No: D o not add to previous draw Performed By: #### 8 [id number] #### [facility] [address] [place] [address], [place] RBC (Bld) [#/Vol] 3.37 10*6/uL Low 4.20-5.70 [facility] Comment on above: Order Comment: No: D o not add to previous draw Performed By: #### 8 [id number] #### [facility] [address] [place] [address], [place] WBC (Bld) [#/Vol] 8.86 10*3/uL Normal 4.00-10.60 [facility] Comment on above: Order Comment: No: D o not add to previous draw Performed By: #### 8 [id number] #### [facility] [address] [place] [address], [place] POC GLUCOSE LABon 07-17-2020 Glucose [Mass/Vol] 101 mg/dL High 70-100 [facility] Comment on above: Performed By: #### 5 7307, 92706 #### [facility] [address] [place] [address], [place] Glucose [Mass/Vol] 76 mg/dL Normal 70-100 [facility] Comment on above: Performed By: #### 5 7307, 47606 #### [facility] [address] [place] [address], [place] Glucose [Mass/Vol] 75 mg/dL Normal 70-100 [facility] Comment on above: Performed By: #### 8 [id number] ####[facility] [place] [address], [place] Glucose [Mass/Vol] 198 mg/dL High 70-100 [facility] Comment on above: Performed By: #### 8 [id number] ####[facility] [place] [address], [place] Glucose [Mass/Vol] 205 mg/dL High 70-100 [facility] Comment on above: Performed By: #### 3 0318 #### [facility] [address] [place] [address], [place] Glucose [Mass/Vol] 187 mg/dL High 70-100 [facility] Comment on above: Performed By: #### 5 7307, 25381 #### [facility] [address] [place] [address], [place] Glucose [Mass/Vol] 131 mg/dL High 70-100 [facility] Comment on above: Performed By: #### 8 [id number] #### [facility] [address] [place] [address], [place] Glucose [Mass/Vol] 75 mg/dL Normal 70-100 [facility] Comment on above: Performed By: #### 5 0103 #### [facility] [address] [place] [address], [place] Glucose [Mass/Vol] 69 mg/dL Low 70-100 [facility] Comment on above: Performed By: #### 8 [id number] ####[facility] [place] [address], [place] BASIC METABOLIC PANELon 03-2 0-2020 Calcium [Mass/Vol] 8.4 mg/dL Low 8.6-10.3 [facility] Comment on above: Order Comment: No: D o not add to previous draw Performed By: #### 3 1943 #### [facility] [address] [place] [address], [place] Chloride [Moles/Vol] 105 mmol/L Normal 98-107 [facility] Comment on above: Order Comment: No: D o not add to previous draw Performed By: #### 3 1943 #### [facility] [address] [place] [address], [place] CO2 [Moles/Vol] 24 mmol/L Normal 21-31 [facility] Comment on above: Order Comment: No: D o not add to previous draw Performed By: #### 3 1943 #### [facility] [address] [place] [address], [place] Creatinine [Mass/Vol] 4.14 mg/dL High 0.70-1.30 [facility] Comment on above: Order Comment: No: D o not add to previous draw Performed By: #### 3 1943 #### [facility] [address] [place] [address], [facility] eGFR- 18 ml/min/1.73sq m Abnormal >60 [facility] Comment on above: Order Comment: No: D o not add to previous draw Performed By: #### 3 1943 #### [facility] [address] [place] [address], [facility] eGFR- non- 15 ml/min/1.73sq m Abnormal >60 [facility] Comment on above: Order Comment: No: D o not add to previous draw Performed By: #### 3 1943 #### [facility] [address] [place] [address], [place] Glucose [Mass/Vol] 127 mg/dL High 70-100 [facility] Comment on above: Order Comment: No: D o not add to previous draw Performed By: #### 3 1943 #### [facility] [address] [place] [address], [place] Potassium [Moles/Vol] 4.0 mmol/L Normal 3.5-5.1 [facility] Comment on above: Order Comment: No: D o not add to previous draw Performed By: #### 3 1943 #### [facility] [address] [place] [address], [place] Sodium [Moles/Vol] 136 mmol/L Normal 136-145 [facility] Comment on above: Order Comment: No: D o not add to previous draw Performed By: #### 3 1943 #### [facility] [address] [place] [address], [facility] Urea nitrogen [Mass/Vol] 35 mg/dL High 7-25 [facility] Comment on above: Order Comment: No: D o not add to previous draw Performed By: #### 3 1943 #### [facility] [address] [place] [address], [facility] CBC COMPLETE BLOOD COUNTon 0 07-16-2020 Erythrocyte distribution width (RBC) [Ratio] 14.6 % Normal 11.5-15.0 [facility] Comment on above: Order Comment: No: D o not add to previous draw Performed By: #### 8 [id number] #### [facility] [address] [place] [address], [facility] Hematocrit (Bld) [Volume fraction] 31.8 % Low 39.0-50.0 [facility] Comment on above: Order Comment: No: D o not add to previous draw Performed By: #### 8 [id number] #### [facility] [address] [place] [address], [facility] Hemoglobin (Bld) [Mass/Vol] 9.7 g/dL Low 13.0-17.0 [facility] Comment on above: Order Comment: No: D o not add to previous draw Performed By: #### 8 [id number] #### [facility] [address] [place] [address], [facility] MCH (RBC) [Entitic mass] 27.2 pg Normal 27.0-33.0 [facility] Comment on above: Order Comment: No: D o not add to previous draw Performed By: #### 8 [id number] #### [facility] [address] [place] [address], [facility] MCHC (RBC) [Mass/Vol] 30.5 g/dL Low 32.0-35.0 [facility] Comment on above: Order Comment: No: D o not add to previous draw Performed By: #### 8 [id number] #### [facility] [address] [place] [address], [facility] MCV (RBC) [Entitic vol] 89.3 fL Normal 82.0-98.0 [facility] Comment on above: Order Comment: No: D o not add to previous draw Performed By: #### 8 [id number] #### [facility] [address] [place] [address], [facility] Nucleated RBC/100 WBC (Bld) [Ratio] 0 % Normal 0-0 [facility] Comment on above: Order Comment: No: D o not add to previous draw Performed By: #### 8 [id number] #### [facility] [address] [place] [address], [facility] PLAT CNT 321 10*3/uL Normal 150-400 [facility] Comment on above: Order Comment: No: D o not add to previous draw Performed By: #### 8 [id number] #### [facility] [address] [place] [address], [facility] RBC (Bld) [#/Vol] 3.56 10*6/uL Low 4.20-5.70 [facility] Comment on above: Order Comment: No: D o not add to previous draw Performed By: #### 8 [id number] #### [facility] [address] [place] [address], [facility] WBC (Bld) [#/Vol] 8.88 10*3/uL Normal 4.00-10.60 [facility] Comment on above: Order Comment: No: D o not add to previous draw Performed By: #### 8 [id number] #### [facility] [address] [place] [address], [facility] POC GLUCOSE LABon 07-16-2020 Glucose [Mass/Vol] 94 mg/dL Normal 70-100 [facility] Comment on above: Performed By: #### 5 0103 #### [facility] [address] [place] [address], [place] Glucose [Mass/Vol] 62 mg/dL Low 70-100 [facility] Comment on above: Performed By: #### 5 7307, 92149 #### [facility] [address] [place] [address], [place] Glucose [Mass/Vol] 80 mg/dL Normal 70-100 [facility] Comment on above: Performed By: #### 5 7307, 94583 #### [facility] [address] [place] [address], [place] Glucose [Mass/Vol] 99 mg/dL Normal 70-100 [facility] Comment on above: Performed By: #### 8 [id number] ####[facility] [place] [address], [place] Glucose [Mass/Vol] 203 mg/dL High 70-100 [facility] Comment on above: Performed By: #### 8 [id number] ####[facility] [place] [address], [place] Glucose [Mass/Vol] 151 mg/dL High 70-100 [facility] Comment on above: Performed By: #### 5 7307, 09952 #### [facility] [address] [place] [address], [place] ANAon 07-15-2020 KILLIAN SCREEN <1:40 Normal <1:40,1:40 [facility] Comment on above: Order Comment: No: D o not add to previous draw Performed By: #### 8 [id number] #### [facility] [address] [place] [address], [place] ANCA IGG WITH REFLEX [id number] on 07-15-2020 ANCA <1:20 Normal <1:20 [facility] Comment on above: Order Comment: No: D [...] collagen vascular disease or arthritis. Performed By: [employer] [address] [place] [address] Credit Card Analyst: Emi Campbell MD BASIC METABOLIC PANELon 06-27 Calcium [Mass/Vol] 8.5 mg/dL Low 8.6-10.3 [facility] Comment on above: Order Comment: No: D o not add to previous draw Performed By: #### 8 [id number] #### [facility] [address] [place] [address], [facility] Chloride [Moles/Vol] 103 mmol/L Normal 98-107 [facility] Comment on above: Order Comment: No: D o not add to previous draw Performed By: #### 8 [id number] #### [facility] [address] [place] [address], [place] CO2 [Moles/Vol] 23 mmol/L Normal 21-31 [facility] Comment on above: Order Comment: No: D o not add to previous draw Performed By: #### 8 [id number] #### [facility] [address] [place] [address], [place] Creatinine [Mass/Vol] 4.38 mg/dL High 0.70-1.30 [facility] Comment on above: Order Comment: No: D o not add to previous draw Performed By: #### 8 [id number] #### [facility] [address] [place] [address], [place] eGFR- 17 ml/min/1.73sq m Abnormal >60 [facility] Comment on above: Order Comment: No: D o not add to previous draw Performed By: #### 8 [id number] #### [facility] [address] [place] [address], [facility] eGFR- non- 14 ml/min/1.73sq m Abnormal >60 [facility] Comment on above: Order Comment: No: D o not add to previous draw Performed By: #### 8 [id number] #### [facility] [address] [place] [address], [place] Glucose [Mass/Vol] 154 mg/dL High 70-100 [facility] Comment on above: Order Comment: No: D o not add to previous draw Performed By: #### 8 5499 #### [facility] [address] [place] [address], [facility] Potassium [Moles/Vol] 4.5 mmol/L Normal 3.5-5.1 [facility] Comment on above: Order Comment: No: D o not add to previous draw Performed By: #### 8 [id number] #### [facility] [address] [place] [address], [facility] Sodium [Moles/Vol] 135 mmol/L Low 136-145 [facility] Comment on above: Order Comment: No: D o not add to previous draw Performed By: #### 8 [id number] #### [facility] [address] [facility] [place] [id number], [facility] Urea nitrogen [Mass/Vol] 32 mg/dL High 7-25 [facility] Comment on above: Order Comment: No: D o not add to previous draw Performed By: #### 8 [id number] #### [facility] [address] [place] [address], [place] C REACTIVE PROTEINon 021 CRP [Mass/Vol] 138.0 mg/L High 0.0-7.0 [facility] Comment on above: Order Comment: FROM [id number] Performed By: #### 8 [id number] #### [facility] [address] [place] [address], [place] CBC W/DIFFon 07-15-2020 ABS IMM GRANS 0.1 10*3/uL Normal 0.0-0.2 [facility] Comment on above: Performed By: #### 5 0103 #### [facility] [address] [place] [address], [facility] ABS NEUTROPHILS 7.3 10*3/uL Normal 1.6-7.6 [facility] Comment on above: Performed By: #### 5 0103 #### [facility] [address] [facility] [place] [address], [facility] Basophils (Bld) [#/Vol] 0.0 10*3/uL Normal 0.0-0.2 [facility] Comment on above: Performed By: #### 5 0103 #### [facility] [address] [place] [address], [facility] Basophils/100 WBC (Bld) 0.3 % Normal 0.0-1.0 [facility] Comment on above: Performed By: #### 5 0103 #### [facility] [address] [facility] [place] [address], [facility] Eosinophils (Bld) [#/Vol] 0.5 10*3/uL Normal 0.0-0.5 [facility] Comment on above: Performed By: #### 5 0103 #### [facility] [address] [facility] [place] [id number], [facility] Eosinophils/100 WBC (Bld) 5.1 % Normal 0.0-6.0 [facility] Comment on above: Performed By: #### 5 0103 #### [facility] [address] [facility] [place] [address], [facility] Erythrocyte distribution width (RBC) [Ratio] 14.9 % Normal 11.5-15.0 [facility] Comment on above: Performed By: #### 5 0103 #### [facility] [address] [place] [id number], [facility] Hematocrit (Bld) [Volume fraction] 33.0 % Low 39.0-50.0 [facility] Comment on above: Performed By: #### 5 0103 #### [facility] [address] [facility] [place] [address], [facility] Hemoglobin (Bld) [Mass/Vol] 9.9 g/dL Low 13.0-17.0 [facility] Comment on above: Performed By: #### 5 0103 #### [facility] [address] IMMATURE GRANS 1.4 % High 0.0-1.0 [facility] Comment on above: Performed By: #### 5 3 #### [facility] [address] Lymphocytes (Bld) [#/Vol] 1.1 10*3/uL Low 1.2-4.0 [facility] Comment on above: Performed By: #### 5 0103 #### [facility] [address] Lymphocytes/100 WBC (Bld) 11.0 % Low 20.0-45.0 [facility] Comment on above: Performed By: #### 5 3 #### [facility] [address] MCH (RBC) [Entitic mass] 27.0 pg Normal 27.0-33.0 [facility] Comment on above: Performed By: #### 5 3 #### [facility] [address] [place] [address], [facility] MCHC (RBC) [Mass/Vol] 30.0 g/dL Low 32.0-35.0 [facility] Comment on above: Performed By: #### 5 3 #### [facility] [address] [place] [address], [facility] MCV (RBC) [Entitic vol] 90.2 fL Normal 82.0-98.0 [facility] Comment on above: Performed By: #### 5 102 #### [facility] [address] [facility] [place] [address], [facility] Monocytes (Bld) [#/Vol] 1.1 10*3/uL High 0.1-1.0 [facility] Comment on above: Performed By: #### 5 102 #### [facility] [address] [facility] [place] [address], [facility] MONOS 10.9 % Normal 5.0-12.0 [facility] Comment on above: Performed By: #### 5 102 #### [facility] [address] Neutrophils/100 WBC (Bld) 71.3 % Normal 40.0-72.0 [facility] Comment on above: Performed By: #### 5 102 #### [facility] [address] Nucleated RBC/100 WBC (Bld) [Ratio] 0 % Normal 0-0 [facility] Comment on above: Performed By: #### 5 102 #### [facility] [address] [place] [address], [facility] PLAT CNT 317 10*3/uL Normal 150-400 [facility] Comment on above: Performed By: #### 5 102 #### [facility] [address] [facility] [place] [address], [facility] RBC (Bld) [#/Vol] 3.66 10*6/uL Low 4.20-5.70 [facility] Comment on above: Performed By: #### 5 102 #### [facility] [address] [place] [address], [facility] WBC (Bld) [#/Vol] 10.23 10*3/uL Normal 4.00-10.60 [facility] Comment on above: Performed By: #### 5 0103 #### [facility] [address] [place] [address], [facility] COMPLEMENT 3on 07-15-2020 COMPLEMENT 3 108 mg/dL Normal 79-152 [facility] Comment on above: Order Comment: No: D o not add to previous draw Performed By: #### 8 [id number] #### [facility] [address] [place] [address], [place] COMPLEMENT 4on 07-15-2020 COMPLEMENT 4 31 mg/dL Normal 16-38 [facility] Comment on above: Order Comment: No: D o not add to previous draw Performed By: #### 8 [id number] #### [facility] [address] [place] [address], [place] GLOMR BASMT MEMBRon 07-16-19 21 GLOMR BASMT MBRN Negative Abnormal NEGATIVE [facility] Comment on above: Order Comment: No: D o not add to previous draw Result Comment: Note : The performance characteristics of this test were validated by the [facility]ology laboratory. It has not been cleared or approved by the U.[place]. Food and Drug Administration. The results are not intended to be used as the sole means for clinical diagnosis or patient management decisions. [facility] is authorized under CLIA to perform high-complexity testing. Performed By: #### 8 [id number] #### [facility] [address] [place] [address], [facility] POC GLUCOSE LABon 07-15-2020 Glucose [Mass/Vol] 107 mg/dL High 70-100 [facility] Comment on above: Performed By: #### [id number] #### [facility] [address] [place] [address], [place] Glucose [Mass/Vol] 84 mg/dL Normal 70-100 [facility] Comment on above: Performed By: #### [id number] #### [facility] [address] [place] [address], [place] Glucose [Mass/Vol] 164 mg/dL High 70-100 [facility] Comment on above: Performed By: #### 8 [id number] ####[facility] [place] [address], [facility] Glucose [Mass/Vol] 141 mg/dL High 70-100 [facility] Comment on above: Performed By: #### 5 [id number], [id number] #### [facility] [address] [place], [place] [id number] [place] [address] PORTABLE CHEST 1 VIEWon 06-27 PORTABLE CHEST 1 VIEW [facility] Department of Radiology [address] [place] [address] Patient Name: RASHARD LYMAN : 1960 Sex: M Age: Race: White Pt. Location: [address] [place] [address] Patient Status: I Ordered Date: 07/15/2020 7:00:00 [...] exam. Electronically signed: Nir Swartz. Transcribed by: [email or web address], User Resident: Electronically Signed by: NIR SWARTZ @ 07/15/2020 07:34 AM Normal [facility] Comment on above: Order Comment: evalu ate for Effusion *AFB CULTUREon 07-14-2020 *AFB CULTURE Clinical Report: (D) Specimen/Source: FLUID/PLEURAL FLUID Collected: 07/14/2020 13:03 Status: Final Last Updated: 08/26/2020 08:52 (1) Left Peural Effusion AFB (Final) No Acid Fast Bacilli Seen CULT RES (Final) No growth after 42 days of incubation Normal [facility] Comment on above: Order Comment: Left Peural Effusion Performed By: #### 8 [id number] #### [facility] [address] *ANAEROBIC CULTUREon 021 *ANAEROBIC CULTURE Clinical Report: (D) Specimen/Source: FLUID/PLEURAL FLUID Collected: 07/14/2020 13:03 Status: Final Last Updated: 07/19/2020 08:08 (1) Left Peural Effusion CULT RES (Final) No Anaerobes Isolated 5 Days Normal [facility] Comment on above: Order Comment: Left Peural Effusion Performed By: #### 8 [id number] #### [facility] [address] [place], [place] [id number] [place] [address] *BODY FLUID CULTUREon 2020 *BODY FLUID CULTURE Clinical Report: (D) Specimen/Source: FLUID/PLEURAL FLUID Collected: 07/14/2020 13:03 Status: Final Last Updated: 07/19/2020 07:53 (1) Left Peural Effusion GRAM (Final) Polys PRESENT No Bacteria Seen CYTOSPUN (Final) This Gram Stain was done on a cytocentrifuged specimen CULT RES (Final) No Growth Day 5 Normal [facility] Comment on above: Order Comment: Left Peural Effusion Performed By: #### 3 0318 #### [facility] [address] *FUNGAL CULTUREon 07-14-2020 *FUNGAL CULTURE Clinical Report: (D) Specimen/Source: FLUID/PLEURAL FLUID Collected: 07/14/2020 13:03 Status: Final Last Updated: 08/15/2020 08:41 (1) Left Peural Effusion FS (Final) No Yeast or Fungal Elements Seen CULT RES (Final) Culture negative for fungus Normal [facility] Comment on above: Order Comment: Left Peural Effusion Performed By: #### 8 [id number] #### [facility] [address] *VIRAL NON RESPIRATORY CULTU REon 07-14-2020 Bacteria identified Cx Nom (Unsp spec) Normal [facility] Comment on above: Order Comment: Left Peural [...] Linked Virus Inducible S. [place] Normal [facility] Comment on above: Order Comment: Left Peural Effusion Result Comment: Test Performed by [facility] [address] [place] [id number] - Released 07/20/2020 14:10 Result changed by IF on 07/17/2020 14:17. The previous value was Test Performed by [facility] [address] [phone].. Result changed by IF on 07/18/2020 12:17. The previous value was Test Performed by [facility] [address] [place] [id number] [phone].. Result changed by IF on 07/20/2020 14:10. The previous value was Test Performed by [address] [address] [phone].. REPORT STATUS FINAL 07/20/2020 Normal [facility] Comment on above: Order Comment: Left Peural Effusion Result Comment: Resu lt changed by IF on 07/20/2020 14:10. The previous value was Preliminary. APTTon 07-14-2020 aPTT Coag (Bld) [Time] 41.7 s High 25.0-35.0 [facility] Comment on above: Order Comment: No: D [...] PURPOSE. Performed By: #### 8 [id number] #### [facility] [address] [facility] [place] [place] [address], [facility] aPTT Coag (Bld) [Time] 44.9 s High 25.0-35.0 [facility] Comment on above: Order Comment: No: D [...] THIS PURPOSE. Performed By: #### 5 7307, [id number] #### [facility] [address] [place] [address], [facility] BASIC METABOLIC PANELon 03- Calcium [Mass/Vol] 8.6 mg/dL Normal 8.6-10.3 [facility] Comment on above: Order Comment: No: D o not add to previous draw Performed By: #### 8 [id number] #### [facility] [address] [place] [address], [place] Chloride [Moles/Vol] 102 mmol/L Normal 98-107 [facility] Comment on above: Order Comment: No: D o not add to previous draw Performed By: #### 8 [id number] #### [facility] [address] [place] [address], [place] CO2 [Moles/Vol] 24 mmol/L Normal 21-31 [facility] Comment on above: Order Comment: No: D o not add to previous draw Performed By: #### 8 [id number] #### [facility] [address] [place] [address], [place] Creatinine [Mass/Vol] 3.44 mg/dL High 0.70-1.30 [facility] Comment on above: Order Comment: No: D o not add to previous draw Performed By: #### 8 [id number] #### [facility] [address] [place] [address], [place] eGFR- 22 ml/min/1.73sq m Abnormal >60 [facility] Comment on above: Order Comment: No: D o not add to previous draw Performed By: #### 8 [id number] #### [facility] [address] [place] [address], [place] eGFR- non- 18 ml/min/1.73sq m Abnormal >60 [facility] Comment on above: Order Comment: No: D o not add to previous draw Performed By: #### 8 [id number] #### [facility] [address] [place] [address], [place] Glucose [Mass/Vol] 355 mg/dL High 70-100 [facility] Comment on above: Order Comment: No: D o not add to previous draw Performed By: #### 8 [id number] #### [facility] [address] [place] [address], [facility] Potassium [Moles/Vol] 4.6 mmol/L Normal 3.5-5.1 [facility] Comment on above: Order Comment: No: D o not add to previous draw Performed By: #### 8 [id number] #### [facility] [address] [place] [address], [facility] Sodium [Moles/Vol] 133 mmol/L Low 136-145 [facility] Comment on above: Order Comment: No: D o not add to previous draw Performed By: #### 8 [id number] #### [facility] [address] Urea nitrogen [Mass/Vol] 27 mg/dL High 7-25 [facility] Comment on above: Order Comment: No: D o not add to previous draw Performed By: #### 8 [id number] #### [facility] [address] BNP (B-TYPE NATRIURETIC PEPT CIERRA)on 07-14-2020 Natriuretic peptide B (Bld) [Mass/Vol] 19 pg/mL Normal 0-100 [facility] Comment on above: Order Comment: Left Peural Effusion Result Comment: Give n the appropriate clinical setting a BNP result of >100 pg/mL indicates congestive heart failure. Performed By: #### 3 [id number] #### [facility] [address] [place] [address], [facility] CBC COMPLETE BLOOD COUNTon 0 07-14-2020 Erythrocyte distribution width (RBC) [Ratio] 14.6 % Normal 11.5-15.0 [facility] Comment on above: Order Comment: No: D o not add to previous draw Performed By: #### 8 [id number] #### [facility] [address] [place] [address], [facility] Hematocrit (Bld) [Volume fraction] 35.3 % Low 39.0-50.0 [facility] Comment on above: Order Comment: No: D o not add to previous draw Performed By: #### 8 [id number] #### [facility] [address] [place] [address], [facility] Hemoglobin (Bld) [Mass/Vol] 11.1 g/dL Low 13.0-17.0 [facility] Comment on above: Order Comment: No: D o not add to previous draw Performed By: #### 8 [id number] #### [facility] [address] [facility] [place] [address], [facility] MCH (RBC) [Entitic mass] 27.5 pg Normal 27.0-33.0 [facility] Comment on above: Order Comment: No: D o not add to previous draw Performed By: #### 8 [id number] #### [facility] [address] [facility] [place] [address], [facility] MCHC (RBC) [Mass/Vol] 31.4 g/dL Low 32.0-35.0 [facility] Comment on above: Order Comment: No: D o not add to previous draw Performed By: #### 8 [id number] #### [facility] [address] [facility] [place] [address], [facility] MCV (RBC) [Entitic vol] 87.6 fL Normal 82.0-98.0 [facility] Comment on above: Order Comment: No: D o not add to previous draw Performed By: #### 8 [id number] #### [facility] [address] [facility] [place] [address], [facility] Nucleated RBC/100 WBC (Bld) [Ratio] 0 % Normal 0-0 [facility] Comment on above: Order Comment: No: D o not add to previous draw Performed By: #### 8 [id number] #### [facility] [address] PLAT CNT 325 10*3/uL Normal 150-400 [facility] Comment on above: Order Comment: No: D o not add to previous draw Performed By: #### 8 [id number] #### [facility] [address] [address], [facility] RBC (Bld) [#/Vol] 4.03 10*6/uL Low 4.20-5.70 [facility] Comment on above: Order Comment: No: D o not add to previous draw Performed By: #### 8 [id number] #### [facility] [address] [place] [address], [facility] WBC (Bld) [#/Vol] 12.59 10*3/uL High 4.00-10.60 [facility] Comment on above: Order Comment: No: D o not add to previous draw Performed By: #### 8 [id number] #### [facility] [address] [place] [address], [facility] CBC W/DIFFon 07-14-2020 ABS IMM GRANS 0.2 10*3/uL Normal 0.0-0.2 [facility] Comment on above: Order Comment: No: D o not add to previous draw Performed By: #### 8 [id number] #### [facility] [address] ABS NEUTROPHILS 7.9 10*3/uL High 1.6-7.6 [facility] Comment on above: Order Comment: No: D o not add to previous draw Performed By: #### 8 [id number] #### [facility] [address] [place] [address], [facility] Basophils (Bld) [#/Vol] 0.1 10*3/uL Normal 0.0-0.2 [facility] Comment on above: Order Comment: No: D o not add to previous draw Performed By: #### 8 [id number] #### [facility] [address] [place] [address], [facility] Basophils/100 WBC (Bld) 0.5 % Normal 0.0-1.0 [facility] Comment on above: Order Comment: No: D o not add to previous draw Performed By: #### 8 [id number] #### [facility] [address] [place] [address], [facility] Eosinophils (Bld) [#/Vol] 0.5 10*3/uL Normal 0.0-0.5 [facility] Comment on above: Order Comment: No: D o not add to previous draw Performed By: #### 8 [id number] #### [facility] [address] [facility] [place] [address], [facility] Eosinophils/100 WBC (Bld) 4.3 % Normal 0.0-6.0 [facility] Comment on above: Order Comment: No: D o not add to previous draw Performed By: #### 8 [id number] #### [facility] [address] [facility] [place] [address], [facility] Erythrocyte distribution width (RBC) [Ratio] 14.6 % Normal 11.5-15.0 [facility] Comment on above: Order Comment: No: D o not add to previous draw Performed By: #### 8 [id number] #### [facility] [address] [facility] [place] [address], [facility] Hematocrit (Bld) [Volume fraction] 34.2 % Low 39.0-50.0 [facility] Comment on above: Order Comment: No: D o not add to previous draw Performed By: #### 8 [id number] #### [facility] [address] [facility] [place] [id number], [facility] Hemoglobin (Bld) [Mass/Vol] 10.3 g/dL Low 13.0-17.0 [facility] Comment on above: Order Comment: No: D o not add to previous draw Performed By: #### 8 [id number] #### [facility] [address] IMMATURE GRANS 1.4 % High 0.0-1.0 [facility] Comment on above: Order Comment: No: D o not add to previous draw Performed By: #### 8 [id number] #### [facility] [address] [place] [address], [facility] Lymphocytes (Bld) [#/Vol] 1.3 10*3/uL Normal 1.2-4.0 [facility] Comment on above: Order Comment: No: D o not add to previous draw Performed By: #### 8 [id number] #### [facility] [address] Lymphocytes/100 WBC (Bld) 11.3 % Low 20.0-45.0 [facility] Comment on above: Order Comment: No: D o not add to previous draw Performed By: #### 8 [id number] #### [facility] [address] MCH (RBC) [Entitic mass] 27.0 pg Normal 27.0-33.0 [facility] Comment on above: Order Comment: No: D o not add to previous draw Performed By: #### 8 [id number] #### [facility] [address] [place] [address], [facility] MCHC (RBC) [Mass/Vol] 30.1 g/dL Low 32.0-35.0 [facility] Comment on above: Order Comment: No: D o not add to previous draw Performed By: #### 8 [id number] #### [facility] [address] [place] [address], [facility] MCV (RBC) [Entitic vol] 89.5 fL Normal 82.0-98.0 [facility] Comment on above: Order Comment: No: D o not add to previous draw Performed By: #### 8 [id number] #### [facility] [address] [place] [address], [facility] Monocytes (Bld) [#/Vol] 1.4 10*3/uL High 0.1-1.0 [facility] Comment on above: Order Comment: No: D o not add to previous draw Performed By: #### 8 [id number] #### [facility] [address] [place] [address], [place] MONOS 12.6 % High 5.0-12.0 [facility] Comment on above: Order Comment: No: D o not add to previous draw Performed By: #### 8 [id number] #### [facility] [address] [place] [address], [place] Neutrophils/100 WBC (Bld) 69.9 % Normal 40.0-72.0 [facility] Comment on above: Order Comment: No: D o not add to previous draw Performed By: #### 8 [id number] #### [facility] [address] [place] [address], [place] Nucleated RBC/100 WBC (Bld) [Ratio] 0 % Normal 0-0 [facility] Comment on above: Order Comment: No: D o not add to previous draw Performed By: #### 8 [id number] #### [facility] [address] [place] [address], [place] PLAT CNT 292 10*3/uL Normal 150-400 [facility] Comment on above: Order Comment: No: D o not add to previous draw Performed By: #### 8 [id number] #### [facility] [address] [place] [address], [place] RBC (Bld) [#/Vol] 3.82 10*6/uL Low 4.20-5.70 [facility] Comment on above: Order Comment: No: D o not add to previous draw Performed By: #### 8 [id number] #### [facility] [address] [place] [address], [place] WBC (Bld) [#/Vol] 11.28 10*3/uL High 4.00-10.60 [facility] Comment on above: Order Comment: No: D o not add to previous draw Performed By: #### 8 [id number] #### [facility] [address] [place] [address], [facility] COMP METABOLIC PANELon 07-14 Albumin [Mass/Vol] 3.1 g/dL Low 3.5-5.7 [facility] Comment on above: Order Comment: No: D o not add to previous draw Performed By: #### 8 [id number] #### [facility] [address] [place] [address], [facility] ALKALINE PHOSPH 77 IU/L Normal 34-104 [facility] Comment on above: Order Comment: No: D o not add to previous draw Performed By: #### 8 [id number] #### [facility] [address] [place] [address], [place] ALT [Catalytic activity/Vol] 8 U/L Normal 7-52 [facility] Comment on above: Order Comment: No: D o not add to previous draw Performed By: #### 8 [id number] #### [facility] [address] [place] [address], [facility] AST [Catalytic activity/Vol] 11 U/L Low 13-39 [facility] Comment on above: Order Comment: No: D o not add to previous draw Performed By: #### 8 [id number] #### [facility] [address] [place] [address], [place] Bilirubin [Mass/Vol] 0.3 mg/dL Normal 0.3-1.0 [facility] Comment on above: Order Comment: No: D o not add to previous draw Performed By: #### 8 [id number] #### [facility] [address] [place] [address], [place] Calcium [Mass/Vol] 8.8 mg/dL Normal 8.6-10.3 [facility] Comment on above: Order Comment: No: D o not add to previous draw Performed By: #### 8 [id number] #### [facility] [address] [place] [address], [place] Chloride [Moles/Vol] 101 mmol/L Normal 98-107 [facility] Comment on above: Order Comment: No: D o not add to previous draw Performed By: #### 8 [id number] #### [facility] [address] [place] [address], [place] CO2 [Moles/Vol] 22 mmol/L Normal 21-31 [facility] Comment on above: Order Comment: No: D o not add to previous draw Performed By: #### 8 [id number] #### [facility] [address] [place] [address], [place] Creatinine [Mass/Vol] 3.38 mg/dL High 0.70-1.30 [facility] Comment on above: Order Comment: No: D o not add to previous draw Performed By: #### 8 [id number] #### [facility] [address] [place] [address], [place] eGFR- 23 ml/min/1.73sq m Abnormal >60 [facility] Comment on above: Order Comment: No: D o not add to previous draw Performed By: #### 8 [id number] #### [facility] [address] [place] [address], [place] eGFR- non- 19 ml/min/1.73sq m Abnormal >60 [facility] Comment on above: Order Comment: No: D o not add to previous draw Performed By: #### 8 [id number] #### [facility] [address] [place] [address], [place] Glucose [Mass/Vol] 324 mg/dL High 70-100 [facility] Comment on above: Order Comment: No: D o not add to previous draw Performed By: #### 8 [id number] #### [facility] [address] [place] [address], [facility] Potassium [Moles/Vol] 4.5 mmol/L Normal 3.5-5.1 [facility] Comment on above: Order Comment: No: D o not add to previous draw Performed By: #### 8 [id number] #### [facility] [address] [place] [address], [facility] Protein [Mass/Vol] 6.7 g/dL Normal 6.0-8.3 [facility] Comment on above: Order Comment: No: D o not add to previous draw Performed By: #### 8 [id number] #### [facility] [address] [place] [address], [place] Sodium [Moles/Vol] 131 mmol/L Low 136-145 [facility] Comment on above: Order Comment: No: D o not add to previous draw Performed By: #### 8 [id number] #### [facility] [address] [place] [id number], [facility] Urea nitrogen [Mass/Vol] 27 mg/dL High 7-25 [facility] Comment on above: Order Comment: No: D o not add to previous draw Performed By: #### 8 [id number] #### [facility] [address] [place] [address], [facility] CREATININE URINE RANDOMon Creatinine (U) [Mass/Vol] 101.0 mg/dL Normal [facility] Comment on above: Order Comment: No: D o not add to previous draw Result Comment: Ther e are no established reference values for random urine specimens Performed By: #### 8 [id number] #### [facility] [address] [place] [address], [place] FLUID CELL COUNTon 1 Basophils/100 WBC (Bld) 1 % Normal [facility] Comment on above: Performed By: #### 8 [id number] #### [facility] [address] [place] [address], [facility] Eosinophils/100 WBC (Bld) 11 % Normal [facility] Comment on above: Performed By: #### 8 [id number] #### [facility] [address] [place] [address], [facility] Lymphocytes/100 WBC (Bld) 49 % Normal [facility] Comment on above: Performed By: #### 8 [id number] #### [facility] [address] [place] [address], [facility] MESOTHELIAL 12 % Normal [facility] Comment on above: Performed By: #### 8 [id number] #### [facility] [address] [place] [address], [facility] OTHER F1 Diff done by cytospin Normal [facility] Comment on above: Performed By: #### 8 [id number] #### [facility] [address] [place] [address], [facility] OTHER F3 Checked by Evelyn Rodriguez M.D. Normal [facility] Comment on above: Result Comment: Resu lt changed by VHERR on 07/15/2020 13:33. The previous value was Preliminary report; verified report to follow. Performed By: #### 8 [id number] #### [facility] [address] [place] [address], [facility] RBC [address] RBC/uL Normal [facility] Comment on above: Performed By: #### 8 [id number] #### [facility] [address] [place] [id number], [facility] SEGS 27 % Normal [facility] Comment on above: Performed By: #### 8 [id number] #### [facility] [address] [place] [address], [facility] SOURCE Thoracentesis Normal [facility] Comment on above: Performed By: #### 8 [id number] #### [facility] [address] [place] [address], [facility] TOTAL VOLUME 1L Normal [facility] Comment on above: Performed By: #### 8 [id number] #### [facility] [address] [place] [address], [facility] WBC 1762 WBC/uL Normal [facility] Comment on above: Result Comment: Some reference interval(s) and other method performance specifications have not been established for analytes on this body fluid. The test result must be integrated into the clinical context for interpretation. Performed By: #### 8 [id number] #### [facility] [address] [place] [address], [facility] GLUCOSE FLUID MISCon 021 Glucose [Mass/Vol] 326 mg/dL Normal [facility] Comment on above: Result Comment: The reference range and other method performance specifications have not been established for this test in fluids. the test result should be integrated into the clinical context for interpretation. Performed By: #### 3 1944 #### [facility] [address] [place] [address], [facility] HEMOGLOBIN A1Con 07-14-2020 Glucose [Moles/Vol] 295 mmol/L Normal [facility] Comment on above: Order Comment: Left Peural Effusion Performed By: #### 3 0318 #### [facility] [address] [place] [address], [facility] HbA1c (Bld) [Mass fraction] 11.9 % High 4.0-6.0 [facility] Comment on above: Order Comment: Left Peural Effusion Performed By: #### 3 [id number] #### [facility] [address] [place] [address], [facility] HEPATITIS B SURFACE ANTIGEN QUALon 07-14-2020 HEP B SURF AG QUAL Non-Reactive Normal NONREACTIVE [facility] Comment on above: Order Comment: No: D o not add to previous draw Performed By: #### 3 1943 #### [facility] [address] [place] [address], [facility] [facility]INIC HEPATITIS C ANTIBODYon 07-14 ANTI-HCV Non-Reactive Normal NONREACTIVE [facility] Comment on above: Order Comment: No: D o not add to previous draw Performed By: #### 3 1944 #### [facility] [address] [place] [address], [place] LDH BLOODon 07-14-2020 LDH 176 Units/L Normal 140-271 [facility] Comment on above: Order Comment: Left Peural Effusion Performed By: #### 3 0318 #### [facility] [address] [place] [address], [place] LDH 133 Units/L Low 140-271 [facility] Comment on above: Order Comment: No: D o not add to previous draw Performed By: #### 8 [id number] #### [facility] [address] [place] [address], [place] LDH FLUIDon 07-14-2020 LDH 212 Units/L Normal [facility] Comment on above: Result Comment: The reference range and other method performance specifications have not been established for this test in fluids. the test result should be integrated into the clinical context for interpretation. Performed By: #### 3 1944 #### [facility] [address] [place] [address], [place] LIPID PROFILEon 07-14-2020 Cholesterol [Mass/Vol] 95 mg/dL Low 120-200 [facility] Comment on above: Order Comment: No: D o not add to previous draw Result Comment: CHOL ESTEROL REFERENCE RANGE: 20 YEARS AND OLDER CARDIOVASCULAR RISK Less than 200 mg/dl Low Risk 200 to 239 mg/dl Borderline Risk 240 mg/dl and greater High Risk Performed By: #### 8 [id number] #### [facility] [address] [place] [address], [facility] Cholesterol in HDL [Mass/Vol] 36 mg/dL Normal 23-92 [facility] Comment on above: Order Comment: No: D o not add to previous draw Result Comment: Slig ht variation in normal range could be due to gender and/or age. HDL CHOLESTEROL REFERENCE RANGE: 20 years and older Cardiovascular Risk > or =60 mg/dL Desirable 40 TO 59 mg/dL Low Risk <40 mg/dL High Risk Performed By: #### 8 [id number] #### [facility] [address] [place] [address], [facility] Cholesterol in LDL [Mass/Vol] 37 mg/dL Normal 0-130 [facility] Comment on above: Order Comment: No: D o not add to previous draw Result Comment: LDL IS A CALCULATION LDL IS ONLY VALID IF THE TRIG IS LESS THAN 400. Performed By: #### 8 [id number] #### [facility] [address] [place] [address], [facility] Cholesterol.total/C holesterol in HDL [Mass ratio] 2.6 {ratio} Normal 0.0-4.5 [facility] Comment on above: Order Comment: No: D o not add to previous draw Performed By: #### 8 [id number] #### [facility] [address] [place] [address], [facility] NON-HDL CHOLESTEROL 59 mg/dL Normal [facility] Comment on above: Order Comment: No: D o not add to previous draw Performed By: #### 8 [id number] #### [facility] [address] [place] [address], [facility] Triglyceride [Mass/Vol] 109 mg/dL Normal 40-149 [facility] Comment on above: Order Comment: No: D o not add to previous draw Result Comment: TRIG LYCERIDE REFERENCE RANGE: 20 YEARS AND OLDER CARDIOVASCULAR RISK LESS THAN 150 mg/dl LOW RISK 150 TO 199 mg/dl BORDERLINE RISK 200 mg/dl AND GREATER HIGH RISK Performed By: #### 8 [id number] #### [facility] [address] [place] [address], [facility] VLDL CHOL 22 mg/dL Normal 0-40 [facility] Comment on above: Order Comment: No: D o not add to previous draw Performed By: #### 8 [id number] #### [facility] [address] [place] [address], [place] MAGNESIUM BLOODon 07-14-2020 Magnesium [Mass/Vol] 2.1 mg/dL Normal 1.9-2.7 [facility] Comment on above: Order Comment: No: D o not add to previous draw Performed By: #### 8 [id number] #### [facility] [address] [place] [address], [place] Magnesium [Mass/Vol] 2.0 mg/dL Normal 1.9-2.7 [facility] Comment on above: Performed By: #### 8 [id number] #### [facility] [address] [place] [address], [place] PHOSPHORUS BLOODon Phosphate [Mass/Vol] 4.1 mg/dL Normal 2.5-5.0 [facility] Comment on above: Order Comment: No: D o not add to previous draw Performed By: #### 8 [id number] #### [facility] [address] [place] [address], [place] Phosphate [Mass/Vol] 4.0 mg/dL Normal 2.5-5.0 [facility] Comment on above: Performed By: #### 8 [id number] #### [facility] [address] [place] [address], [place] POC GLUCOSE LABon 07-14-2020 Glucose [Mass/Vol] 180 mg/dL High 70-100 [facility] Comment on above: Performed By: #### 8 [id number] ####[facility] [place] [address], [place] Glucose [Mass/Vol] 198 mg/dL High 70-100 [facility] Comment on above: Performed By: #### 5 7307, [id number] #### [facility] [address] [place] [address], [place] Glucose [Mass/Vol] 265 mg/dL High 70-100 [facility] Comment on above: Performed By: #### 8 [id number] #### [facility] [address] [facility] [place] [address], [facility] Glucose [Mass/Vol] 305 mg/dL High 70-100 [facility] Comment on above: Performed By: #### 5 7307, 10763 #### [facility] [address] [place] [address], [facility] Glucose [Mass/Vol] 301 mg/dL High 70-100 [facility] Comment on above: Performed By: #### 5 0103 #### [facility] [address] [facility] [place] [address], [facility] PORTABLE CHEST 1 VIEWon 06-27 PORTABLE CHEST 1 VIEW [facility] Department of Radiology [address] [place] [id number] Patient Name: RASHARD LYMAN : 1960 Sex: M Age: Race: White Pt. Location: [id number] Patient Status: I Ordered Date: 07/14/2020 1:40:00 [...] above Electronically signed: Patricia Damon. Transcribed by: [email or web address], User Resident: Electronically Signed by: PATRICIA DAMON @ 07/14/2020 03:24 PM Normal [facility] Comment on above: Order Comment: Evalu ate for Pneumothorax PORTABLE CHEST 1 VIEW [facility] Department of Radiology [address] [place] [id number] Patient Name: RASHARD LYMAN : 1960 Sex: M Age: Race: White Pt. Location: [address] [place] [address] Patient Status: I Ordered Date: 07/13/2020 11:35:00 [...] reports Electronically signed: Valdemar Foster. Transcribed by: [email or web address], User Resident: SY MOFFETT Electronically Signed by: VALDEMAR FOSTER @ 07/14/2020 06:31 AM I personally read this/these film(s) with this resident Normal [facility] Comment on above: Order Comment: evalu ate for Effusion PROTEIN ELECT Truong 07-14-2020 Protein [Mass/Vol] 6.0 g/dL Normal 6.0-8.3 [facility] Comment on above: Performed By: #### 3 0318 #### [facility] [address] [place] [address], [facility] PROTEIN ELECT Normal [facility] Comment on above: Result Comment: Decr eased albumin and elevated alpha 1 and 2 suggests acute inflammation. Performed By: #### 3 0318 #### [facility] [address] [place] [address], [place] PROTEIN ELECT URon 1 PROTEIN ELECT Urine protein electrophoresis suggests a nonselective nephropathy. Normal [facility] Comment on above: Performed By: #### 3 1944 #### [facility] [address] [place] [address], [place] PROTEIN TOTAL BLOODon 2020 Protein [Mass/Vol] 6.7 g/dL Normal 6.0-8.3 [facility] Comment on above: Order Comment: Left Peural Effusion Performed By: #### 3 0318 #### [facility] [address] [place] [address], [place] PROTHROMBIN TIMEon 1 INR Coag (PPP) [Relative time] 1.12 {INR} Normal 0.91-1.16 [facility] Comment on above: Order Comment: No: D [...] CHEST 1995;[id number]. Performed By: #### 5 [id number], [id number] #### [facility] [address] [place] [address], [facility] PT Coag (PPP) [Time] 14.4 s Normal 12.3-14.8 [facility] Comment on above: Order Comment: No: D o not add to previous draw Result Comment: ALL RESULTS MUST BE INTERPRETED WITH RESPECT TO BLOOD DRAWING ARTIFACT OR DILUTION ERROR OF ANTICOAGULANT AT THE TIME OF SAMPLING. Performed By: #### 5 [id number], [id number] #### [facility] [address] [place] [address], [facility] SEDIMENTATION RATEon 021 SED RATE 32 mm/hr High 0-10 [facility] Comment on above: Performed By: #### 8 [id number] #### [facility] [address] [place] [id number], [place] SODIUM URINE RANDOMon 2020 Sodium (U) [Moles/Vol] 59 mmol/L Normal [facility] Comment on above: Order Comment: No: D o not add to previous draw Result Comment: Ther e are no established reference values for random urine specimens Performed By: #### 8 [id number] #### [facility] [address] [place] [address], [facility] T PROT FLUIDon 07-14-2020 Protein [Mass/Vol] 3.6 g/dL Normal [facility] Comment on above: Result Comment: The reference range and other method performance specifications have not been established for this test in fluids. the test result should be integrated into the clinical context for interpretation. Performed By: #### 3 1944 #### [facility] [address] [place] [address], [facility] T PROT UR Loretta 07-14-2020 U TOTAL PROTEIN 859.0 mg/dL Normal [facility] Comment on above: Order Comment: No: D o not add to previous draw Result Comment: Ther e are no established reference values for random urine specimens Performed By: #### 8 [id number] #### [facility] [address] [place] [address], [facility] Performed By: #### 3 1944 #### [facility] [address] [place] [address], [facility] TROPONIN-Ion 07-14-2020 Troponin I.cardiac [Mass/Vol] 0.09 ng/mL High 0.00-0.04 [facility] Comment on above: Order Comment: No: D o not add to previous draw Result Comment: REFE RENCE RANGES: 0.00 - 0.04 ng/ml NORMAL 0.05 - 0.50 ng/ml INDETERMINATE > 0.50 ng/ml CONSISTENT WITH AN M.I. Performed By: #### 8 [id number] #### [facility] [address] [place] [address], [facility] Troponin I.cardiac [Mass/Vol] 0.07 ng/mL High 0.00-0.04 [facility] Comment on above: Order Comment: No: D o not add to previous draw Result Comment: REFE RENCE RANGES: 0.00 - 0.04 ng/ml NORMAL 0.05 - 0.50 ng/ml INDETERMINATE > 0.50 ng/ml CONSISTENT WITH AN M.I. Performed By: #### 8 [id number] #### [facility] [address] TSH3on 07-14-2020 TSH 3RD GENERATION 3.28 uIU/mL Normal 0.34-5.60 [facility] Comment on above: Order Comment: No: D o not add to previous draw Performed By: #### 8 [id number] #### [facility] [address] [facility] [place] [address], [facility] URIC ACID BLOODon 07-14-2020 Urate [Mass/Vol] 7.1 mg/dL Normal 4.4-7.6 [facility] Comment on above: Performed By: #### 8 [id number] #### [facility] [address] [facility]. [place], [place] [address] [place] [address] URINALYSIS REFLEXon 07-15-19 21 Appearance (U) SL CLOUDY Abnormal CLEAR [facility] Comment on above: Order Comment: Left Peural Effusion Performed By: #### 3 0318 #### [facility] [address] [facility] [place] [address], [facility] Bilirubin Ql (U) Negative Normal NEGATIVE [facility] Comment on above: Order Comment: Left Peural Effusion Performed By: #### 3 0318 #### [facility] [address] [facility] [place] [address], [facility] Color (U) YELLOW Normal YELLOW [facility] Comment on above: Order Comment: Left Peural Effusion Performed By: #### 3 0318 #### [facility] [address] [facility] [place] [address], [facility] EPIS FEW Normal FEW,OCC,NONE SEEN [facility] Comment on above: Order Comment: Left Peural Effusion Performed By: #### 3 0318 #### [facility] [address] [place] [address], [place] Glucose Ql (U) >=500 Abnormal NEGATIVE [facility] Comment on above: Order Comment: Left Peural Effusion Performed By: #### 3 0318 #### [facility] [address] [place] [address], [place] Hemoglobin Ql (U) TRACE Abnormal NEGATIVE [facility] Comment on above: Order Comment: Left Peural Effusion Performed By: #### 3 0318 #### [facility] [address] [place] [address], [place] KETONE TRACE Abnormal NEGATIVE [facility] Comment on above: Order Comment: Left Peural Effusion Performed By: #### 3 0318 #### [facility] [address] [place] [address], [place] LEUK JACIEL Negative Normal NEGATIVE [facility] Comment on above: Order Comment: Left Peural Effusion Performed By: #### 3 0318 #### [facility] [address] [place] [address], [place] MUCUS THREADS OCC Abnormal NONE SEEN [facility] Comment on above: Order Comment: Left Peural Effusion Performed By: #### 3 0318 #### [facility] [address] [place] [address], [place] Nitrite Ql (U) Negative Normal NEGATIVE [facility] Comment on above: Order Comment: Left Peural Effusion Performed By: #### 3 0318 #### [facility] [address] [place] [address], [place] pH (U) 6.0 [pH] Normal 5.0-8.0 [facility] Comment on above: Order Comment: Left Peural Effusion Performed By: #### 3 0318 #### [facility] [address] [place] [address], [place] Protein Ql (U) >=500 Abnormal NEGATIVE [facility] Comment on above: Order Comment: Left Peural Effusion Performed By: #### 3 0318 #### [facility] [address] [place] [address], [facility] RBC 0-2 Abnormal NONE SEEN [facility] Comment on above: Order Comment: Left Peural Effusion Performed By: #### 3 0318 #### [facility] [address] [place] [address], [facility] SPEC GRAV 1.017 Normal 1.015-1.020 [facility] Comment on above: Order Comment: Left Peural Effusion Performed By: #### 3 0318 #### [facility] [address] [place] [address], [facility] WBC UA 3-5 Abnormal NONE SEEN [facility] Comment on above: Order Comment: Left Peural Effusion Performed By: #### 3 0318 #### [facility] [address] [place] [address], [facility] Vital Signs Date Time Vital Sign Value Performing Clinician Facility 03-21-2021 15:40-0500 Body height 193.04 cm Kike Pollack Other [email or web address] Other 03-21-2021 15:40-0500 Body mass index (BMI) [Ratio] 39.02 kg/m2 Kike Gomesangela Other [facility] Other 03-21-2021 15:40-0500 Body temperature 97.8 [degF] Kike Gomesangela Other [facility] Other 03-21-2021 15:40-0500 Body weight 145.42 kg Kike Jaki Other [facility] Other 03-21-2021 15:40-0500 Diastolic blood pressure 84 mm[Hg] Kike Gomesangela Other [facility] Other 03-21-2021 15:40-0500 Respiratory rate 18 /min Kike Pollack Other [facility] Other 03-21-2021 15:40-0500 SaO2% (BldA) [Mass fraction] 96 % Kike Pollack Other [facility] Other 03-21-2021 15:40-0500 Systolic blood pressure 137 mm[Hg] Kike Pollack Other [facility] Other 08-25-2020 12:24-0400 Heart rate 82 /min Jose Valone Work Phone: [facility] 08-25-2020 12:24-0400 Respiratory rate 20 /min Jose Valone Work Phone: [facility] 08-25-2020 11:17-0400 Body temperature 98.7 [degF] Jose Valone Work Phone: [facility] 08-25-2020 11:17-0400 Diastolic blood pressure 94 mm[Hg] Jose Valone Work Phone: [facility] 08-25-2020 11:17-0400 SaO2% (BldA) [Mass fraction] 96 % Jose Valone Work Phone: [facility] 08-25-2020 11:17-0400 Systolic blood pressure 183 mm[Hg] Jose Valone Work Phone: [facility] 08-25-2020 06:00-0400 Body weight 160.5 kg Jose Valone Work Phone: [facility] 08-19-2020 14:17-0400 Body height 193.04 cm Jose Valone Work Phone: [facility] 08-18-2020 21:22-0400 Body height 193.04 cm Jose Valone Work Phone: [facility] 08-18-2020 21:22-0400 Body mass index (BMI) [Ratio] 43.8 kg/m2 Jose Juarez Work Phone: [facility] 08-18-2020 21:22-0400 Body temperature 97.6 [degF] Jose Forteone Work Phone: [facility] 08-18-2020 21:22-0400 Body weight 163.3 kg Jose Froteone Work Phone: [facility] 08-18-2020 21:22-0400 Diastolic blood pressure 80 mm[Hg] Jose Valone Work Phone: [facility] 08-18-2020 21:22-0400 Heart rate 105 /min Jose Forteone Work Phone: [facility] 08-18-2020 21:22-0400 Respiratory rate 18 /min Jose Juarez Work Phone: [facility] 08-18-2020 21:22-0400 SaO2% (BldA) [Mass fraction] 94 % Jose Juarez Work Phone: [facility] 08-18-2020 21:22-0400 Systolic blood pressure 160 mm[Hg] Jose Juarez Work Phone: [facility] Encounters Encounter Date Encounter Type Care Provider Facility Start: 05-31-2023 End: 06-01-2023 ambulatory [facility] Start: 05-06-2023 End: 05-07-2023 ambulatory JOSE JUAREZ [facility] Start: 04-19-2023 End: 04-20-2023 ambulatory CHINO Hopson [facility] Start: 02-27-2023 End: 02-28-2023 ambulatory [facility] Start: 09-11-2022 End: 09-12-2022 ambulatory CHINO Hopson [facility] Facility:H1 Start: 08-28-2022 End: 08-29-2022 ambulatory CHINO Hopson [facility] Facility:H1 Start: 08-24-2022 End: 08-25-[address] JOSE JUAREZ Facility:H1 Start: 08-20-2022 End: 08-21-[address] JOSE JUAREZ Facility:H1 Start: 08-19-2022 Encounter for preprocedural cardiovascular examination [facility] Start: 08-19-2022 Encounter for preprocedural laboratory examination [facility] Start: 08-19-2022 Encounter for preprocedural respiratory examination [facility] Start: 08-15-2022 End: 08-16-[address] JOSE JUAREZ Facility:H1 Start: 08-15-2022 End: 08-16-2022 Encounter for preprocedural laboratory examination DR JOSE JUAREZ Facility:[facility]1 Start: 07-31-2022 End: 08-01-[address] JOSE JURAEZ Facility:[facility]1 Start: 07-13-2022 End: 07-14-[address] [...] Start: 03-02-2022 End: 03-03-[address] JOSE JUARZE Facility:[facility]1 Start: 03-01-2022 End: 03-02-[address] CARLOS EDUARDO SU . Facility:[facility]1 Start: 02-23-2022 End: 02-24-[address] JOSE JUAREZ Facility:[facility]1 Start: 02-16-2022 End: 02-17-[address] JOSE JUAREZ Facility:[facility]1 Start: 02-09-2022 End: 02-10-[address] JOSE JUAREZ Facility:[facility]1 Start: 02-02-2022 End: 02-03-2022 [facility]ulatory [facility] Facility[facility] Start: 01-26-2022 End: 01-27-2022 ambulatory [facility] Facility:[facility] Start: 01-18-2022 End: 01-19-2022 ambulatory [facility] Facility[facility] Start: 01-15-2022 End: 01-15-2022 ambulatory PETER D [facility] Facility:H1 Start: 01-12-2022 End: 01-13-2022 ambulatory CHINO Hopson [facility] Facility:H1 Start: 01-10-2022 End: 01-11-2022 ambulatory CHINO Hopson [facility] Facility:H1 Start: 01-02-2022 End: 01-03-2022 ambulatory CHINO Hopson [facility] Facility:H1 Start: 12-25-2021 End: 12-26-2021 ambulatory CHINO Hopson [facility] Facility:H1 Start: 12-21-2021 End: 12-22-2021 ambulatory SHAIKH Patricia ZARATEANCA Facility:H1 Start: 12-18-2021 End: 12-19-2021 ambulatory CHINO Hopson [facility] Facility:H1 Start: 12-15-2021 End: 12-16-2021 ambulatory CHINO Hopson [facility] Facility:H1 Start: 12-11-2021 End: 12-12-2021 ambulatory CHINO Hopson [facility] Facility:H1 Start: 11-30-2021 End: 12-01-[address] CARLOS EDUARDO SU . Facility:H1 Start: 11-22-2021 End: 11-23-[address] CARLOS EDUARDO SU . Facility:[facility]1 Start: 11-21-2021 End: 11-22-2021 ambulatory CHINO Hopson [facility] Facility:H1 Start: 11-14-[address] CARLOS EDUARDO SU . Faci lity:H1 Start: 11-13-2021 End: 11-14-2021 ambulatory CHINO Hopson [facility] Facility:H1 Start: 11-07-2021 End: 11-08-2021 ambulatory CHINO Hopson [facility] Facility:H1 Start: 10-31-2021 End: 11-01-2021 ambulatory CHINO D [facility] Facility:H1 Start: 10-24-2021 End: 10-25-2021 ambulatory [facility] Facility:H1 Start: 10-17-2021 End: 10-18-2021 ambulatory [facility] Facility:[facility]1 Start: 10-09-2021 End: 10-10-2021 ambulatory [facility] Facility:H1 Start: 03-21-2021 End: 03-21-2021 ambulatory Kike Jaki Other [place] [facility] Other Start: 03-21-2021 Office outpatient vi sit 25 minutes Kike Pollack [facility] Start: 10-20-2020 End: 10-21-2020 ambulatory UNKNOWN PROVIDER Facility:[facility] Start: 09-28-2020 End: 09-28-2020 Patient encounter procedure Jose [employer] Work Phone: -Respiratory Therapy Start: 09-06-2020 End: 09-06-2020 Patient encounter procedure Jose [employer] Work Phone: -Electrodiagnostics Start: 08-18-2020 End: 08-25-2020 Evaluation and management of inpatient Jose Juarez Work Phone: -[facility] Start: 07-13-2020 End: 07-22-2020 Evaluation and management of inpatient SAVANNAH REYNOLDS Facility:[facility] Procedures Date Procedure Procedure Detail Performing Clinician Start: 08-20-2020 MR thoracic spine wo con Jose Juarez Work Phone: Start: 08-19-2020 CT abdomen pelvis wo con Jose Juarez Work Phone: Start: 08-19-2020 CT chest wo con Jose Jaurez Work Phone: Start: 08-19-2020 Ultrasonography of b ilateral kidneys Jose [employer] Work Phone: Start: 08-19-2020 End: 08-19-2020 Aerobic microbial culture Jose [employer] Work Phone: Start: 08-19-2020 Investigation of tra nsfusion reaction Jose [employer] Work Phone: Start: 08-18-2020 Plain chest X-ray Charl roderick Juarez Work Phone: Start: 08-18-2020 Blood culture [...] OF R IGHT AND LEFT HEART, TRANSESOPHAGEAL LOSR Laura CALLAWAY Plan of Treatment Date Care Activity Detail Author Start: 08-18-2020 Bacteria identified in Blood by Culture Blood Culture [facility] Patient referral [facility] Immunizations Immunization Date Immunization Notes Care Provider Iker de la garza 05-27-2015 influenza, seasonal, injectable Kike Pollack Other [facility] Other 05-27-2015 pneumococcal polysaccharide vaccine, 23 valent Kike Pollack Other [facility] Other Payers Date Payer Category Payer Unknown [id number] 1960 Unknown [id number] 2.16.8 [id number] 1960 Unknown [id number] [id number]. [id number] 1960 Unknown [id number] 2.16.84 [id number] 1960 Unknown [id number] 2.16.84 [id number] 1960 Unknown [id number] 2.16.84 [id number] 1960 Unknown [id number] 2.16.84 [id number] 1960 Unknown [id number] 2.16.84 [id number] 1960 Unknown [id number] 2.16.84 [id number] 1960 Unknown [id number] 2.16.84 0.1.798783.3.579.2.593 1960 Unknown [id number] 2.16.84 0.1.302893.3.579.2.593 1960 Unknown [id number] 2.16.84 0.1.396002.3.579.2.593 1960 Unknown [id number] 2.16.84 0.1.104891.3.579.2.593 1960 Unknown [id number] 2.16.84 0.1.691751.3.579.2.593 1960 Unknown [id number] 2.16.84 0.1.730217.3.579.2.593 1960 Unknown [id number] 2.16.84 0.1.140385.3.579.2.593 1960 Unknown [id number] 2.16.84 0.1.663680.3.579.2.593 1960 Unknown [id number] 2.16.84 0.1.495520.3.579.2.593 1960 Unknown [id number] 2.16.84 0.1.512734.3.579.2.593 1960 Unknown [id number] 2.16.84 0.1.916187.3.579.2.593 1960 Unknown [id number] 2.16.84 0.1.928127.3.579.2.593 1960 Unknown [id number] 2.16.84 0.1.059839.3.579.2.593 1960 Unknown [id number] 2.16.84 0.1.203742.3.579.2.593 1960 Unknown [id number] 2.16.84 0.1.929187.3.579.2.593 1960 Unknown [id number] 2.16.84 0.1.930094.3.579.2.593 1960 Unknown [id number] 2.16.84 0.1.004262.3.579.2.593 1960 Unknown [id number] 2.16.84 0.1.987451.3.579.2.593 1960 Unknown [id number] 2.16.84 0.1.121838.3.579.2.593 1960 Unknown [id number] 2.16.84 0.1.243231.3.579.2.593 1960 Unknown [id number] 2.16.84 0.1.905752.3.579.2.593 1960 Unknown [id number] 2.16.84 0.1.950697.3.579.2.593 1960 Unknown [id number] 2.16.84 0.1.429298.3.579.2.593 1960 Unknown [id number] 2.16.84 0.1.156646.3.579.2.593 1960 Unknown [id number] 2.16.84 0.1.777457.3.579.2.593 1960 Unknown [id number] 2.16.84 0.1.607033.3.579.2.593 1960 Unknown [id number] 2.16.84 0.1.977925.3.579.2.593 1960 Unknown [id number] 2.16.84 0.1.861700.3.579.2.593 1960 Unknown [id number] 2.16.84 0.1.603914.3.579.2.593 1960 Unknown [id number] 2.16.84 0.1.145260.3.579.2.593 1960 Unknown [id number] 2.16.84 0.1.501200.3.579.2.593 1960 Unknown [id number] 2.16.84 0.1.640789.3.579.2.593 1960 Unknown [id number] 2.16.84 0.1.638330.3.579.2.593 1960 Unknown [id number] 2.16.84 0.1.208852.3.579.2.593 1960 Unknown [id number] 2.16.84 0.1.440318.3.579.2.593 1960 Unknown [id number] 2.16.84 0.1.194929.3.579.2.593 1960 Unknown [id number] 2.16.84 0.1.381576.3.579.2.593 1960 Unknown [id number] 2.16.84 0.1.909066.3.579.2.593 1960 Unknown [id number] 2.16.84 0.1.211257.3.579.2.1286 1960 Unknown [id number] 2.16.84 0.1.056129.3.579.2.1286 1959 Unknown [id number] Medicare Self Pay [id number] Self-pay Self Pay [id number] Social History Date Type Detail Facility Tobacco smoking status NHIS Unknown if ever smoked [facility] Start: 1960 Sex Assigned At Male F bert [facility] Start: 08-18-2020 Tobacco smoking status NHIS Unknown if ever smoked [facility] Start: 08-22-2020 Tobacco smoking status NHIS Never smoked tobacco (finding) [facility] Sex Assigned At Sex Assigned At Bir th [facility] Storem[facility] Other Goals Date Patient Goal Desired Activity /State Functional Status Date Assessment Result Facility 08-25-2020 Functional status Patient at Baseline [facility] Mental Status Date Assessment Result Facility 08-25-2020 Cognitive function Cognitive Sta tus Patient at Baseline [facility] Clinical Notes 07-15-2020 to 08-20-2022 Note [...] authenticated by: PRISCA SANDERSON Date: 2022-08-20 13:00 [facility] 08-15-2022 Note EXAM: XR CHEST 2 V [...] authenticated by: CHINO CABALLERO Date: 2022-08-15 15:06 [facility] 08-01-2022 Note PROCEDURE: XR FOOT L T [...] authenticated by: JAMESON SALGUERO Date: 2022-08-01 07:49 [facility] 03-01-2022 Note CONSULTATION CONSULTATION DATE: 03/01/2022 [...] with certain activities such as standing, walking, 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 [facility] 03-01-2022 Note CONSULTATION PROCEDURE DATE: 03/01/2022 PREOPERATIVE [...] pattern and patient tolerated procedure well. [facility] 12-22-2021 Note PROCEDURE: XR ANKLE LT MIN [...] authenticated by: PRISCA SANDERSON Date: 2021-12-22 10:12 [facility] 12-22-2021 Note PROCEDURE: XR ANKLE LT MIN [...] authenticated by: PRISCA SANDERSON Date: 2021-12-22 10:12 [facility] 12-22-2021 Note PROCEDURE: XR ANKLE LT [...] authenticated by: PRISCA SANDERSON Date: 2021-12-22 10:12 [facility] 12-22-2021 Note PROCEDURE: XR ANKLE LT 2V HISTORY: Pain ; left ankle external fixation application COMPARISON: None. FINDINGS: BONES:3 intraoperative spot fluoroscopic images demonstrate external fixation device surrounding the left ankle. IMPRESSION: External fixation device application. Electronically authenticated by: PRISCA SANDERSON Date: 2021-12-22 10:07 [facility] 12-12-2021 Note PROCEDURE: XR FOOT L T [...] involving the medial cuneiform. Electronically authenticated by: PRSICA SANDERSON Date: 2021-12-12 08:04 [facility] 11-30-2021 Note CONSULTATION The patient returns [...] in clinic in three months' time. [facility] 11-22-2021 Note CONSULTATION CONSULTATION DATE: 11/22/2021 HISTORY [...] to the clinic to receive those. [facility] 11-14-2021 Note PROCEDURE: XR FOOT L T [...] by: PRISCA SANDERSON Date: 2021-11-14 15:42 [facility] 11-07-2021 Note PROCEDURE: XR FOOT L T [...] by: JAMESON SALGUERO Date: 2021-11-07 19:28 [facility] 03-21-2021 Evaluation note Encounter Date Diagnosis Assessment [...] takes midodrine as well as stated above. [facility] Other 03-27-2021 NoteMR#: [id number] [facility] Pt. Name: Rashard Lyman Admitted: 07/13/2020 Discharged: [...] chest pain. Also, there is mention on [facility] records of large inferior/lateral wall abnormality in [...] ON DISCHARGE: A (more content not included)...[facility]03-19-2021 NoteMR#: [id number] [facility] Pt. Name: Rashard Lyman Surgery Date: 07/14/2020 Room #: [id number] Date of : 1960 PROCEDURE NOTE ATTENDING: [...] Pham MD Date Trans: 07/15/2020 01:32 P/ [id number] cc: Nima Wynne MD [address] [place] [id number] NoteMR#: [id number] [facility] Pt. Name: Rashard Lyman Surgery Date: 07/14/2020 Room #: [id number] Date of : 1960 PROCEDURE NOTE ATTENDING: Nima Wynne MD Procedure: Left sided US guided Thoracentesis Pre-procedure Diagnosis: Left pleural effusion Post-procedure Diagnosis: same as above Prior to Procedure: Informed Consent:The risks, benefits, indications, potential complications, and alternatives were explained to the patient/family and informed consent obtained Attending Staff: Nima Wynne Resident/Fellow/AREA LOSS PREVENTION MANAGER: Davis Pham Indications: Nura Munoz is 60 [...] Wynne MD Date Trans: 07/15/2020 12:53 P/ [id number] Diagnosis Onset Date Resolution Status Hyperglycemia acute Pneumonia acute Psoriasis acute 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 acute CKD (chronic kidney disease) stage 4, GFR 15-29 ml/min chronic COPD (chronic obstructive pulmonary disease) chronic 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 GERD (gastroesophageal reflux disease) chronic Obesities, morbid chronic Peripheral vascular occlusive disease chronic Status post amputation [facility] toe of right foot [facility]* Diagnosis Onset Date Resolution [...] (chronic obstructive pulmonary disease) chronic 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 Narrative - Reported* Type [...] HIS LOWER BACK Hospitalization History see above [facility] Other Hospital Discharge instructions Additional Instructions You are scheduled for an outpatient follow up ECHOCARDIOGRAM in 2 weeks at [facility] to re-assess your pericardial effusions on [...] knee Educate on high risk fall precautions [facility] Assessments No Assessments Information Available Advance Directives No Advanced Directives Records Found Advance Directive Response Recorded Date/ Time Advance Directives No September 30 8 3:34pm Chief Complaint and Reason for Visit [...] 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 GERD (gastroesophageal reflux disease) Hypertension [id number] Obesities, morbid Peripheral vascular occlusive disease Status [...] 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 GERD (gastroesophageal reflux disease) Hypertension [id number] Obesities, morbid Peripheral vascular occlusive disease Status [...] 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 GERD (gastroesophageal reflux disease) Hypertension [id number] Obesities, morbid Peripheral vascular occlusive disease Status post amputation of toe of right foot Summary Purpose Family History No Family History Records Found Additional Source Comments (unrecognized sect ion and content) No Status Records FoundNo Status Records FoundNo Status Records FoundNo Status Records FoundNo Status Records FoundNo Status Records Found INFORMATION SOURCE (unrecogn ized section and content) DATE CREATED AUTHOR 09/11/2020 [facility] DATE CREATED AUTHOR AUTHOR'S ORGANIZ ATION 10/21/2020 [facility] DATE CREATED AUTHOR AUTHOR'S ORGANIZ ATION 08/03/2021 [facility] DATE CREATED AUTHOR AUTHOR'S ORGANIZ ATION 10/05/2022 [facility] DATE CREATED AUTHOR AUTHOR'S ORGANIZ ATION 05/12/2023 [facility] DATE CREATED AUTHOR AUTHOR'S ORGANIZ ATION 06/01/2023 [facility] Goals (unrecognized section [...] BE BASED ON THE PRIMARY CLINICAL RECORDS. [facility]. provides no warranty or guarantee of the accuracy or completeness of information in this document.
== END 2023-06-03 16:01 | disposition home or self-care (01) ==
LOC: WC 16:00
PROVIDERS: PCP Podiatrist Foot & Ankle Surgery; Visit Provider Physician Assistant
DX: E11.621 Type 2 diabetes mellitus with foot ulcer (principal); L97.422 Non-pressure chronic ulcer of left heel and midfoot with fat layer exposed
CPT/HCPCS: 11043

== ENCOUNTER 2023-06-11 16:26 | Outpatient (OUT) | payer BC, SELFPAY | END 2023-06-11 16:27 | disposition home or self-care (01) | LOC: WC 16:26 | PROVIDERS: PCP Podiatrist Foot & Ankle Surgery; Visit Provider Podiatrist Foot & Ankle Surgery | DX: E11.621 Type 2 diabetes mellitus with foot ulcer (principal); L97.422 Non-pressure chronic ulcer of left heel and midfoot with fat layer exposed | CPT/HCPCS: G0463 ==

== ENCOUNTER 2023-06-24 14:58 | Outpatient (OUT) | payer BC, SELFPAY | END 2023-06-24 14:59 | disposition home or self-care (01) | LOC: WC 14:58 | PROVIDERS: PCP Podiatrist Foot & Ankle Surgery; Visit Provider Physician Assistant | DX: E11.621 Type 2 diabetes mellitus with foot ulcer (principal); L97.422 Non-pressure chronic ulcer of left heel and midfoot with fat layer exposed | CPT/HCPCS: 11043 ==

== ENCOUNTER 2023-07-09 15:43 | Outpatient (OUT) | payer BC, SELFPAY | END 2023-07-09 15:44 | disposition home or self-care (01) | LOC: WC 15:43 | PROVIDERS: PCP Podiatrist Foot & Ankle Surgery; Visit Provider Physician Assistant | DX: E11.621 Type 2 diabetes mellitus with foot ulcer (principal); L97.422 Non-pressure chronic ulcer of left heel and midfoot with fat layer exposed | CPT/HCPCS: 11043 ==

== ENCOUNTER 2023-08-06 14:12 | Outpatient (OUT) | payer BC, SELFPAY | END 2023-08-06 14:13 | disposition home or self-care (01) | LOC: WC 14:12 | PROVIDERS: PCP Podiatrist Foot & Ankle Surgery; Visit Provider Podiatrist Foot & Ankle Surgery | DX: E11.621 Type 2 diabetes mellitus with foot ulcer (principal); L97.422 Non-pressure chronic ulcer of left heel and midfoot with fat layer exposed | CPT/HCPCS: 11042 ==

== ENCOUNTER 2023-08-26 16:25 | Outpatient (OUT) | payer BC, SELFPAY | END 2023-08-26 16:26 | disposition home or self-care (01) | LOC: WC 16:25 | PROVIDERS: PCP Podiatrist Foot & Ankle Surgery; Visit Provider Physician Assistant | DX: E11.621 Type 2 diabetes mellitus with foot ulcer (principal); L97.422 Non-pressure chronic ulcer of left heel and midfoot with fat layer exposed | CPT/HCPCS: 11043; 29445 ==

== ENCOUNTER 2023-09-02 14:43 | Outpatient (OUT) | payer BC, SELFPAY | END 2023-09-02 14:44 | disposition home or self-care (01) | LOC: WC 14:43 | PROVIDERS: PCP Podiatrist Foot & Ankle Surgery; Visit Provider Physician Assistant | DX: E11.621 Type 2 diabetes mellitus with foot ulcer (principal); L97.422 Non-pressure chronic ulcer of left heel and midfoot with fat layer exposed | CPT/HCPCS: 11043; 29445 ==

== ENCOUNTER 2023-09-10 11:32 | Outpatient (OUT) | payer BC, SELFPAY | END 2023-09-10 11:33 | disposition home or self-care (01) | LOC: WC 11:32 | PROVIDERS: PCP Podiatrist Foot & Ankle Surgery; Visit Provider Podiatrist Foot & Ankle Surgery | DX: E11.621 Type 2 diabetes mellitus with foot ulcer (principal); L97.422 Non-pressure chronic ulcer of left heel and midfoot with fat layer exposed | CPT/HCPCS: 11042 ==

== ENCOUNTER 2023-09-18 09:00 | Outpatient (OUT) | payer BC, SELFPAY ==
--- OUTSIDE RECORDS SUMMARY | 2023-09-19 09:06 | XMS_ITS | CCD ---
Author Organization [facility] Care Team Providers Care Mat Gauger Name Role Phone Jose Juarez Primary Care Provider [phone] Eugene Morel Admit Provider [phone] Eugene Morel Attending Provider [phone] Gordon Ewing Attending Provider Gautam Bazan Attending Provider [phone] SAVANNAH REYNOLDS Admitting Unavailable SAVANNAH REYNOLDS Attending Unavailable JOSE JUAREZ Primary Care Unavailable JOSE JUAREZ Referring Unavailable MD Procedure Practitioner Unavailab TRISHA Ozuna Surgeon Unavailable NIMA WYNNE Surgeon Unavailable MD Procedure Practitioner Unavailab Jose Andres Primary Care Provider Eugene Morel Admit Provider [phone] Gordon Ewing Attending Provider [phone] Gautam Bazan Attending Provider Latrice Lehman [...] ELLIOTT Admitting Unavailable VIDAL CHAPIN Consulting Unavailable SIS WARNER Consulting Unavailable ALIREZA CONTRERAS Consulting Unavailable VALONE, DR GARCIA Primary Care [...] FAWWAD, MOSES H Consulting Unavailable KERVIN ., VIDLA SAHNI Consulting Unavailable BURSIAN, YASMIN Consulting Unavailable [...] VALONE, DR GARCIA Primary Care Unavailable HIGHLANDER, CHNIO Hopson Admitting Unavailable HIGHLANDER, CHINO Hopson Attending [...] DR GARCIA Primary Care Unavailable HIGHLANDER, CHINO Hoposn Attending Unavailable HIGHLANDER, PETER D Admitting Unavailable [...] DR PRISCA Tilley Consulting Unavailable HIGHLANDER, CHINO D Admitting Unavailable HIGHLANDER, CHINO D Consulting Unavailable KERVIN ., VIDAL SAHNI Consulting Unavailable MICHAEL AGARWAL Consulting Unavailable HUNG GARCIA Consulting Unavailable SU ., DR CARLOS EDUARDO Carmona Attending Unavailable SU ., DR CARLOS EDUARDO Carmona Admitting Unavailable VALONE, DR GARCIA Primary Care Unavailable VALONE, DR GARCIA Consulting Unavailable HERNANDEZ ., MARGIE Consulting Unavailable HIGHLANDER, PETER D Consulting Unavailable HIGHLANDER, PETER D Attending Unavailable VALONE, DR GARCIA Primary Care Unavailable HIGHLANDER, PETER D Admitting Unavailable HIGHLANDER, CHINO D Attending Unavailable VALONE, DR GARCIA Primary Care Unavailable HIGHLANDER, PETER D Admitting Unavailable WEST, DR JAMESON Mckeon Consulting Unavailable HIGHLANDER, PETER D Consulting Unavailable HIGHLANDER, PETER D Admitting Unavailable HIGHLANDER, PETER D Consulting Unavailable HIGHLANDER, CHINO D Attending Unavailable VALONE, DR GARCIA Primary Care Unavailable NATHANAEL WILHELM Consulting Unavailable SU ., DR CARLOS EDUARDO Carmona Admitting Unavailable US ., DR CARLOS EDUARDO Carmona Attending Unavailable [...] CHINO D Admitting Unavailable HIGHLANDER, PETER D Referring Unavailable PURVIOFSKY JUANCARLOS Primary Care Unavailable PURVIOFJUANCARLOS PARR Primary Care Unavailable VALONE, JOSE L Referring Unavailable VALONE JR, JOSE L Referring Unavailable VALONE JR, JOSE Corea Primary Care Unavailable ALLYONE JR, JOSE L Referring Unavailable VALONE JR, JOSE L Primary Care Unavailable HIGHLANDER, CHINO D Referring Unavailable VALONE JR, JOSE L Primary Care Unavailable VALONE JR, JOSE L Referring Unavailable VALONE JR, JOSE L Primary Care Unavailable VALONE JR, JOSE L Referring Unavailable VALONE JR, JOSE L Primary Care Unavailable VALONE JR, JOSE L Referring Unavailable VALONE JR, JOSE L Primary Care Unavailable Unavailable Unavailable Unavailable Allergies Allergy Classification Reported Allergen(s) Allergy Type Date of Onset Reaction(s) Facility exenatide (1 source) exenatide Drug Allergy 07-14-19 [facility] Repository NSAIDs (5 sources) celecoxib; Translations: [Celebrex] Drug Allergy 07-14-19 21 Difficulty Breathing [facility] Repository Phenolphthalein (1 source) Phenolphthalein Drug Allergy 07-14-19 21 [facility] Repository (3 sources) celecoxib; Translations: [celecoxib] Drug Allergy 07-21-19 Difficulty Breathing, bad for kidney [facility] Repository (2 sources) Aspirin; Translations: [ASPIRIN] Drug Allergy 07-21-19 bad for kidney [facility] Repository (1 source) Amoxicillin Drug Allergy 07-09-19 [facility] Repository (1 source) celecoxib Drug Allergy 07-09-19 [facility] Repository (1 source) exenatide Drug Allergy 07-09-19 [facility] Repository (1 source) Phenolphthalein Drug Allergy 07-09-19 [facility] Repository (1 source) exenatide; Translations: [EXENATIDE] Drug Allergy 07-21-19 [facility] Repository (1 source) HYLAN G-F 20; Translations: [HYLAN G-F ] Propensity to adverse reactions to drug (disorder) [...] 2017 6:30pm take 1 tablet by regan every eight hours Meclizine HCl 25 MG [...] tablet Discontinued 1 TAB PO Q8H 42 14 November 12, 2017 11:34am November 26, 2017 [...] Hyclate Discontinued 100 MG PO Twice daily November 12, 2017 2:59pm December 03, 2017 [...] 3 Chronic Other aftercare (5 sources) Other detention (current) drug therapy; Translations: [OTH PENITENTIARY CURRENT DRUG THERAPY] Onset: 3 Episodic Other [...] Onset: 06-27-2022 Episodic Other aftercare (1 source) prison (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; Translations: [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] Onset: 01-25-2022 Episodic [...] BLOOD UREA NITROGENon 2023 Urea nitrogen [Mass/Vol] 33 mg/dL High 5-27 [facility] Comment on above: Performed By: #### B JAMES RONDON, 1987-08, 17331-1 #### [facility] ([id number]) [address] [place] [address], [place] [address] #### [id number] #### [facility] ([id number]) [address] [place] [address], [address] [place] [address] CREATININEon 09-03-2023 Creatinine [Mass/Vol] 2.42 mg/dL High 0.70-1.20 [facility] Comment on above: Result Comment: METH OD TRACEABLE TO IDMS STANDARD Performed By: #### B JAMES RONDON, 1987-08, 19049-8 #### [facility] ([id number]) [address] [place] [address] 41894 #### 97311-9 #### [facility] ([id number]) [address] [facility], [address] [place] [address] GFR/1.73 sq M.predicted among non-blacks MDRD (S/P/Bld) [Vol rate/Area] 29 mL/min/{1.73_m2} Low >59 [facility] Comment on above: Result Comment: Reported eGFR is based on the CKD-EPI 2020 equation that does not use a race coefficient. Performed By: #### B JAMES RONDON, 1987-08, #### [facility] ([id number]) [address] [place] [address] 16[address] #### 49849-5 #### [facility] ([id number]) [address] [place] [address], [address] [place] [address] ELECTROLYTESon 09-03-2023 Anion gap [Moles/Vol] 7 mmol/L Normal 5-15 [facility] Comment on above: Performed By: #### JAMES Sanchez MP, 1987-08, #### [facility] ([id number]) [address] [place] [address] #### 00020-8 #### [facility] ([id number]) [address] [place] [address], [address] [place] [address] Chloride [Moles/Vol] 106 mmol/L Normal 98-109 [facility] Comment on above: Performed By: #### JAMES Sanchez MP, 1987-08, 48447-4 #### [facility] ([id number]) [address] [place] [address] #### 47274-3 #### [facility] ([id number]) [address] [place] [address], [address] [place] [address] CO2 [Moles/Vol] 21 mmol/L Low 22-32 [facility] Comment on above: Performed By: #### B JAMES RONDON, 1987-08, 83064-4 #### [facility] ([id number]) [address] [place] [address] 36527 #### 70263-1 #### [facility] ([id number]) [address] [facility], [address] [place] [address] Potassium [Moles/Vol] 4.2 mmol/L Normal 3.5-5.0 [facility] Comment on above: Performed By: #### JAMES Sanchez MP, 1987-08, 65995-9 #### [facility] ([id number]) [address] [place] [address] 10458 #### 46680-5 #### [facility] ([id number]) [address] [facility], [address] [place] [address] Sodium [Moles/Vol] 134 mmol/L Normal 134-146 [facility] Comment on above: Performed By: #### JAMES Sanchez MP, 1987-08, 10580-9 #### [facility] ([id number]) [address] [place] [address] #### 38625-4 #### [facility] ([id number]) [address] [facility], [address] [place] [address] Natriuretic peptide.B prohor adrianne N-Terminal [Mass/Vol]on 09-03-2023 NT Pro BNP See Below Normal [facility] Comment on above: Result Comment: NOTE TEST RESULT FLAG UNIT REF.RANGE ---- PRO B Natr Peptide 933 H pg/mL <125 Test Performed By: [facility] [address] [place] [address] Visual Specialist: Charlotte Hart IIIIA #[id number] Performed By: #### B SEVEN RONDONA, 1987-08, 04061-3 #### [facility] ([id number]) [address] [place] [address] 39[address] #### 99341-0 #### [facility] ([id number]) [address] [facility], [address] [place] [address] BLOOD UREA NITROGENon 2023 Urea nitrogen [Mass/Vol] 38 mg/dL High 5-27 [facility] Comment on above: Performed By: #### B JAMES RONDON, 1987-08, 07983-7 #### [facility] ([id number]) [address] [place] [address] 97469 #### 57178-1 #### [facility] ([id number]) [address] [place] [address], [address] [place] [address] CREATININEon 07-31-2023 Creatinine [Mass/Vol] 2.76 mg/dL High 0.70-1.20 [facility] Comment on above: Result Comment: METH OD TRACEABLE TO IDMS STANDARD Performed By: #### B JAMES RONDON, 1987-08, 72456-7 #### [facility] ([id number]) [address] [place] [address] #### 11091-4 #### [facility] ([id number]) [address] [place] [address], [address] [place] [address] GFR/1.73 sq M.predicted among non-blacks MDRD (S/P/Bld) [Vol rate/Area] 25 mL/min/{1.73_m2} Low >59 [facility] Comment on above: Result Comment: Reported eGFR is based on the CKD-EPI 2020 equation that does not use a race coefficient. Performed By: #### JAMES Sanchez MP, 1987-08, 62143-4 #### [facility] ([id number]) [address] [place] [address] #### 94905-8 #### [facility] ([id number]) [address], [address] [place] [address] ELECTROLYTESon 07-31-2023 Anion gap [Moles/Vol] 7 mmol/L Normal 5-15 [facility] Comment on above: Performed By: #### JAMES Sanchez MP, 1987-08, 75193-1 #### [facility] ([id number]) [address] [place] [address]44[address] #### 78607-0 #### [facility] ([id number]) [address], [address] [place] [address] Chloride [Moles/Vol] 104 mmol/L Normal 98-109 [facility] Comment on above: Performed By: #### JAMES Sanchez MP, 1987-08, 34220-7 #### [facility] ([id number]) [address] [place] [address]17 #### 19713-6 #### [facility] ([id number]) [address], [address] [place] [address] CO2 [Moles/Vol] 21 mmol/L Low 22-32 [facility] Comment on above: Performed By: #### JAMES Sanchez MP, 1987-08, 42093-7 #### [facility] ([id number]) [address] [place] [address]1229 #### 68592-4 #### [facility] ([id number]) [address], [address] [place] [address] Potassium [Moles/Vol] 4.3 mmol/L Normal 3.5-5.0 [facility] Comment on above: Performed By: #### JAMES Sanchez MP, 1987-08, 44531-9 #### [facility] ([id number]) [address] [place] [address]991 #### 81479-7 #### [facility] ([id number]) [address] [place] [address], [address] [place] [address] Sodium [Moles/Vol] 132 mmol/L Low 134-146 [facility] Comment on above: Performed By: #### JAMES Sanchez MP, 1987-08, 61040-9 #### [facility] ([id number]) [address] [place] [address] 81496 #### 77888-4 #### [facility] ([id number]) [address] [place] [address], [address] [place] [address] Natriuretic peptide.B prohor adrianne N-Terminal [Mass/Vol]on 07-31-2023 NT Pro BNP See Below Normal [facility] Comment on above: Result Comment: NOTE TEST RESULT FLAG UNIT REF.RANGE ---- PRO B Natr Peptide 1296 H pg/mL <125 Test Performed By: [facility] [employer] [address] [place] [address] Visual Specialist: Charlotte Hart III #[id number] Performed By: #### JAMES Sanchez MP, 1987-08, 49489-8 #### [facility] ([id number]) [address] [place] [address] 97682 #### 03673-8 #### [facility] ([id number]) [address], [address] [place] [address] BLOOD UREA NITROGENon 2023 Urea nitrogen [Mass/Vol] 34 mg/dL High 5-27 [facility] Comment on above: Performed By: #### B JAMES RONDON, 1987-08, 48617-9 #### [facility] ([id number]) [address] [place] [address] 76660 #### 67792-3 #### [facility] ([id number]) [address] [facility], [address] [place] [address] CREATININEon 07-02-2023 Creatinine [Mass/Vol] 3.13 mg/dL High 0.70-1.20 [facility] Comment on above: Result Comment: METH OD TRACEABLE TO IDMS STANDARD Performed By: #### B JAMES RONDON, 1987-08, 88233-9 #### [facility] ([id number]) [address] [place] [address] 16705 #### 02450-0 #### [facility] ([id number]) [address] [facility] [address] [place] [address] GFR/1.73 sq M.predicted among non-blacks MDRD (S/P/Bld) [Vol rate/Area] 22 mL/min/{1.73_m2} Low >59 [facility] Comment on above: Result Comment: Reported eGFR is based on the CKD-EPI 2020 equation that does not use a race coefficient. Performed By: #### B JAMES RONDON, 1987-08, 24399-4 #### [facility] ([id number]) [address] [place] [address] 32814 #### 81212-0 #### [facility] ([id number]) [address], [address] [place] [address] ELECTROLYTESon 07-02-2023 Anion gap [Moles/Vol] 8 mmol/L Normal 5-15 [facility] Comment on above: Performed By: #### Laura RONDON CBCA, 1987-08, 13540-5 #### [facility] ([id number]) [address] [place] [address]250 #### 43329-5 #### [facility] ([id number]) [address], [address] [place] [address] Chloride [Moles/Vol] 106 mmol/L Normal 98-109 [facility] Comment on above: Performed By: #### B ALCON CBCA, 1987-08, 08658-4 #### [facility] ([id number]) [address] [place] [address] 12190 #### 25141-0 #### [facility] ([id number]) [address], [address] [place] [address] CO2 [Moles/Vol] 20 mmol/L Low 22-32 [facility] Comment on above: Performed By: #### Laura RONDON CBCA, 1987-08, 33013-4 #### [facility] ([id number]) [address] [place] [address] 84340 #### 02677-1 #### [facility] ([id number]) [address], [address] [place] [address] Potassium [Moles/Vol] 4.7 mmol/L Normal 3.5-5.0 [facility] Comment on above: Performed By: #### Laura RONDON CBCA, 1987-08, 20935-5 #### [facility] ([id number]) [address] [place] [address] 68208 #### 35171-3 #### [facility] ([id number]) [address], [address] [place] [address] Sodium [Moles/Vol] 134 mmol/L Normal 134-146 [facility] Comment on above: Performed By: #### JAMES Sanchez MP, 1987-08, 01789-4 #### [facility] ([id number]) [address] [place] [address] 68979 #### 20699-8 #### [facility] ([id number]) [address] [facility], [address] [place] [address] Natriuretic peptide.B prohor adrianne N-Terminal [Mass/Vol]on 07-02-2023 NT Pro BNP See Below Normal [facility] Comment on above: Result Comment: NOTE TEST RESULT FLAG UNIT REF.RANGE ---- PRO B Natr Peptide 413 H pg/mL <125 Test Performed By: [facility] [address] [place] [address] Visual Specialist: Charlotte Hart III #[id number] Performed By: #### JAMES Sanchez MP, 1987-08, 39327-4 #### [facility] ([id number]) [address] [place] [address] 20563 #### 37207-9 #### [facility] ([id number]) [address] [facility], [address] [place] [address] BLOOD UREA NITROGENon 2023 Urea nitrogen [Mass/Vol] 33 mg/dL High 5-27 [facility] Comment on above: Performed By: #### JAMES Sanchez MP, 1987-08, 55729-7 #### [facility] ([id number]) [address] [place] [address] 37104 #### 75854-6 #### [facility] ([id number]) [address], [address] [place] [address] CREATININEon 06-04-2023 Creatinine [Mass/Vol] 2.37 mg/dL High 0.70-1.20 [facility] Comment on above: Result Comment: METH OD TRACEABLE TO IDMS STANDARD Performed By: #### B JAMES RONDON, 1987-08, 43733-0 #### [facility] ([id number]) [address] [place] [address] 12232 #### 56148-8 #### [facility] ([id number]) [address] [facility] [facility] [address] [place] [address] GFR/1.73 sq M.predicted among non-blacks MDRD (S/P/Bld) [Vol rate/Area] 30 mL/min/{1.73_m2} Low >59 [facility] Comment on above: Result Comment: Reported eGFR is based on the CKD-EPI 2020 equation that does not use a race coefficient. Performed By: #### B JAMES RONDON, 1987-08, 86839-8 #### [facility] ([id number]) [address] [place] [address] 68800 #### 80501-3 #### [facility] ([id number]) [address], [address] [place] [address] ELECTROLYTESon 06-04-2023 Anion gap [Moles/Vol] 7 mmol/L Normal 5-15 [facility] Comment on above: Performed By: #### B JAMES RONDON, 1987-08, 86723-4 #### [facility] ([id number]) [address] [place] [address] 10771 #### 22603-1 #### [facility] ([id number]) [address], [address] [place] [address] Chloride [Moles/Vol] 106 mmol/L Normal 98-109 [facility] Comment on above: Performed By: #### B ALCON, CBCA, 1987-08, 13076-1 #### [facility] ([id number]) [address] [place] [address] 60124 #### 89091-9 #### [facility] ([id number]) [address], [address] [place] [address] CO2 [Moles/Vol] 20 mmol/L Low 22-32 [facility] Comment on above: Performed By: #### B ALCON, CBCA, 1987-08, #### [facility] ([id number]) [address] [place] [address] 63045 #### 48022-6 #### [facility] ([id number]) [address], [address] [place] [address] Potassium [Moles/Vol] 4.6 mmol/L Normal 3.5-5.0 [facility] Comment on above: Performed By: #### Laura RONDON CBCA, 1987-08, 99908-2 #### [facility] ([id number]) [address] [place] [address] 44453 #### 00464-7 #### [facility] ([id number]) [address], [address] [place] [address] Sodium [Moles/Vol] 133 mmol/L Low 134-146 [facility] Comment on above: Performed By: #### B ALCON CBCA, 1987-08, 39744-4 #### [facility] ([id number]) [address] [place] [address] 57198 #### 05402-3 #### [facility] ([id number]) [address], [address] [place] [address] Natriuretic peptide.B prohor adrianne N-Terminal [Mass/Vol]on 06-04-2023 NT Pro BNP See Below Normal [facility] Comment on above: Result Comment: NOTE TEST RESULT FLAG UNIT REF.RANGE ---- PRO B Natr Peptide 526 H pg/mL <125 Test Performed By: Jenn Rykert [address] [place] [address] Visual Specialist: Tyler Valle III, M.D. CLIA #[id number] Performed By: #### B MP, CBCA, 1987-08, 87904-7 #### [facility] ([id number]) [address] [facility], [place] [address] #### 37109-6 #### [facility] ([id number]) [address] [place] [address] [address] [place] [address] Cult,Urineon 06-03-2023 Cult,Urine Specimen Description .VOIDED URINE Culture ESCHERICHIA COLI >100,000 CFU/ML STREPTOCOCCI, BETA HEMOLYTIC GROUP B 50 TO 100,000 CFU/ML Report Status FINAL 06/03/2023 SUSCEPTIBILITY Organism ESCHERICHIA COLI Method JENARO Ampicillin >=32 RESISTANT Cefazolin <=4 SUSCEPTIBLE Cefazolin sensitivity results can be used to predict the effectiveness of oral cephalosporins (eg. Cephalexin) in uncomplicated Urinary Tract Infections due to E. coli, K. pneumoniae, and P. mirabilis Ceftriaxone <=0.25 SUSCEPTIBLE ESBL NEGATIVE Gentamicin >=16 RESISTANT Levofloxacin <=0.12 SUSCEPTIBLE Nitrofurantoin <=16 SUSCEPTIBLE Piperacillin/Tazobactam <=4 SUSCEPTIBLE Tobramycin 4 SUSCEPTIBLE Trimethoprim/Sulfa >=320 RESISTANT Resistant [facility] Comment on above: Performed By: #### U #### [id number] [place] [address] Stone Rougher: Griffin Carrion MD [facility] [address] [place] [address] Stone Rougher: Jameson Aaron MD UA w/Reflex Cultureon 2023 Bilirubin, SemiQt,Ur Negative Normal NEG [facility] Comment on above: Performed By: #### U AX, UMICAO #### [facility] [address] [place], [place] [id number] Stone Rougher: Jameson Aaron MD Blood, Urine TRACE Abnormal NEG [facility] Comment on above: Performed By: #### U AX, UMICAO #### [facility] [address] [place], [place] [id number] Stone Rougher: Jameson Aaron MD Clarity (U) SLIGHTLY CLOUDY Abnormal CLEAR [facility] Comment on above: Performed By: #### U AX, UMICAO #### [facility] [address] [place], [place] [id number] Stone Rougher: Jameson Aaron MD Color (U) Yellow Normal YEL [facility] Comment on above: Performed By: #### U AX, UMICAO #### [facility] [address] [place], [place] [id number] Stone Rougher: Jameson Aaron MD Glucose Ql (U) 3+ mg/dL Abnormal NEG [facility] Comment on above: Performed By: #### U AX, UMICAO #### [facility] [address] [place] [address] Stone Rougher: Jameson Aaron MD Ketones Ql (U) Negative Normal NEG [facility] Comment on above: Performed By: #### U AX, UMICAO #### [facility] [address] [place] [address] Stone Rougher: Jameson Aaron MD Leukocyte esterase Test strip Ql (U) TRACE Abnormal NEG [facility] Comment on above: Performed By: #### U AX, UMICAO #### [facility] [address] [place], [place] [address]83 Stone Rougher: Jameson Aaron MD Nitrite,Ur Negative Normal NEG [facility] Comment on above: Performed By: #### U AX, UMICAO #### [facility] [address] [place] [address] [place] [address] Stone Rougher: Jameson Aaron MD PH,Ur 5.5 Normal 5.0-9.0 [facility] Comment on above: Performed By: #### U AX, UMICAO #### [facility] [address] [place] [address] Dr. [place], [facility]83 Stone Rougher: Jameson Aaron MD Protein Ql (U) 2+ mg/dL Abnormal NEG [facility] Comment on above: Performed By: #### U AX, UMICAO #### [address] [place], [facility]83 Stone Rougher: Jameson Aaron MD Spec. [place],Ur 1.025 High 1.010-1.020 [facility] Comment on above: Performed By: #### U AX, UMICAO #### [address] [place], [place] 5930283 Stone Rougher: Jameson Aaron MD Urobilinogen,Ur Normal Normal 0.0-1.0 [facility] Comment on above: Performed By: #### U AX, UMICAO #### [address] [place], [place] [address] Stone Rougher: Jameson Aaron MD Urinalysis,Microon 4 Bacteria 2+ Abnormal NONE [facility] Comment on above: Performed By: #### U AX, UMICAO #### [address] [place] [address] Stone Rougher: Jameson Aaron MD Epithelial cells LM Ql (Urine sed) 0 TO 2 Normal 0-5 [facility] Comment on above: Performed By: #### U AX, UMICAO #### [facility] [address] [place] [address] Dr. [place], [place] 9551883 Stone Rougher: Jameson Aaron MD Epithelial, Renal 0 TO 2 Normal 0 [facility] Comment on above: Performed By: #### U AX, UMICAO #### [facility] [address] [place], [place] 1729683 Stone Rougher: Jameson Aaron MD Urine RBC's 0 TO 2 Normal 0-2 [facility] Comment on above: Performed By: #### U AX, UMICAO #### [facility] [address] [place], [place] 076[address]83 Stone Rougher: Jameson Aaron MD Urine WBC's 10 TO 20 Normal 0-5 [facility] Comment on above: Performed By: #### U AX, UMICAO #### [facility] [address] [place] [address] Stone Rougher: Jameson Aaron MD Yeast PRESENCE NOTED Abnormal NONE [facility] Comment on above: Performed By: #### U AX, UMICAO #### [facility] [address] [place] [address] Stone Rougher: Jameson Aaron MD BLOOD UREA NITROGENon 2023 Urea nitrogen [Mass/Vol] 44 mg/dL High 5-27 [facility] Comment on above: Performed By: #### Tiki LEC, 3094-0, MANAGER PRIVATE, 44793-7 #### [facility] ([id number]) [address] [place] [address], [place] [address] #### 30892-4, HA1C #### [facility] ([id number]) [address] [place] [address], [address] [place] [address] CREATININEon 05-06-2023 Creatinine [Mass/Vol] 2.71 mg/dL High 0.70-1.20 [facility] Comment on above: Result Comment: METH OD TRACEABLE TO IDMS STANDARD Performed By: #### E LEC, 3094-0, MANAGER PRIVATE, 58573-8 #### [facility] ([id number]) [address] [place] [address] #### 53231-0, HA1C #### [facility] ([id number]) [address] [facility] [place] [address] GFR/1.73 sq M.predicted among non-blacks MDRD (S/P/Bld) [Vol rate/Area] 26 mL/min/{1.73_m2} Low >59 [facility] Comment on above: Result Comment: Reported eGFR is based on the CKD-EPI 2020 equation that does not use a race coefficient. Performed By: #### E LEC, 3094-0, MANAGER PRIVATE, 01411-5 #### [facility] ([id number]) [address] [place] [address] #### 18559-8, HA1C #### [facility] ([id number]) [address] [facility], [address] [place] [address] ELECTROLYTESon 05-06-2023 Anion gap [Moles/Vol] 11 mmol/L Normal 5-15 [facility] Comment on above: Performed By: #### E LEC, 3094-0, MANAGER PRIVATE, 54513-5 #### [facility] ([id number]) [address] [place] [address] #### 17919-2, HA1C #### [facility] ([id number]) [address] [facility], [address] [place] [address] Chloride [Moles/Vol] 101 mmol/L Normal 98-109 [facility] Comment on above: Performed By: #### E LEC, 3094-0, MANAGER PRIVATE, 66217-9 #### [facility] ([id number]) [address] [place] [address] #### 34603-6, HA1C #### [facility] ([id number]) [address], [address] [place] [address] CO2 [Moles/Vol] 18 mmol/L Low 22-32 [facility] Comment on above: Performed By: #### E LEC, 3094-0, MANAGER PRIVATE, 14586-4 #### [facility] ([id number]) [address] [place] [address] #### 62532-9, HA1C #### [facility] ([id number]) [address] [facility], [address] [place] [address] Potassium [Moles/Vol] 4.4 mmol/L Normal 3.5-5.0 [facility] Comment on above: Performed By: #### E LEC, 3094-0, MANAGER PRIVATE, 94961-5 #### [facility] ([id number]) [address] [place] [address] #### 95558-7, HA1C #### [facility] ([id number]) [address] [facility], [address] [place] [address] Sodium [Moles/Vol] 130 mmol/L Low 134-146 [facility] Comment on above: Performed By: #### E LEC, 3094-0, MANAGER PRIVATE, 69886-5 #### [facility] ([id number]) [address] [place] [address] #### 37647-0, HA1C #### [facility] ([id number]) [address], [address] [place] [address] HGB A1C (GLYCO-HGB)on 2023 Glucose [Mass/Vol] 260 mg/dL Normal [facility] Comment on above: Performed By: #### B MP, CBCA, 1987-, 31747-2 #### [facility] ([id number]) [address] [place] [address] #### 68816-2 #### [facility] ([id number]) [address] [facility], [address] [place] [address] HbA1c (Bld) [Mass fraction] 10.7 % High 4.4-5.6 [facility] Comment on above: Result Comment: NOTE ADA Guidelines Result HgbA1c Normal : less than 5.7 % Prediabetes : 5.7 % to 6.4 % Diabetes : > 6.4 % Use with caution in patients with abnormal hemoglobin variants as the half-life of red blood cells and in vivo glycation rates are affected. Performed By: #### Laura MP, CBCA, 1987-08, 62540-4 #### [facility] ([id number]) [address] [place] [address] #### 43596-4 #### [facility] ([id number]) [address] [place] [address], [address] [place] [address] Lipid 1996 panelon 4 Cholesterol [Mass/Vol] 205 mg/dL High 150-200 [facility] Comment on above: Performed By: #### Tiki LEC, 3094-0, MANAGER PRIVATE, 36420-2 #### [facility] ([id number]) [address] [place] [address] #### 89247-2, HA1C #### [facility] ([id number]) [address] [place] [address], [address] [place] [address] Cholesterol in HDL [Mass/Vol] 35 mg/dL Low >39 [facility] Comment on above: Result Comment: HDL <40 mg/dL - High Risk HDL > or = 40mg/dL- Desirable HDL >60 mg/dL - Negative Risk Performed By: #### E LEC, 3094-0, MANAGER PRIVATE, 29861-6 #### [facility] ([id number]) [address] [place] [address] #### 71937-1, HA1C #### [facility] ([id number]) [address], [address] [place] [address] Cholesterol in LDL [Mass/Vol] 120 mg/dL Normal <130 [facility] Comment on above: Result Comment: LDL <100 mg/dL - Desirable LDL >160 mg/dL - High Risk Performed By: #### E LEC, 3094-0, MANAGER PRIVATE, 36709-0 #### [facility] ([id number]) [address] [place] [address] #### 70549-6, HA1C #### [facility] ([id number]) [address], [address] [place] [address] Cholesterol in VLDL [Mass/Vol] 50 mg/dL High 0-30 [facility] Comment on above: Performed By: #### E LEC, 3094-0, MANAGER PRIVATE, 97446-2 #### [facility] ([id number]) [address] [place] [address] #### 37059-6, HA1C #### [facility] ([id number]) [address], [address] [place] [address] CHOLESTEROL:HDL 5.9 High 1.0-5.0 [facility] Comment on above: Performed By: #### E LEC, 3094-0, MANAGER PRIVATE, 47469-6 #### [facility] ([id number]) [address] [place] [address] #### 55092-1, HA1C #### [facility] ([id number]) [address], [address] [place] [address] Triglyceride [Mass/Vol] 248 mg/dL High 27-150 [facility] Comment on above: Performed By: #### Tiki LEC, 3094-0, MANAGER PRIVATE, 61837-3 #### [facility] ([id number]) [address] [place] [address] #### 70659-4, HA1C #### [facility] ([id number]) [address], [address] [place] [address] MICROALBUMIN - ALBUMIN:CREAT ININE URINE RATIOon 05-06-2023 ALB/CREAT RATIO 2747.0 mg/g creat High 0.0-30.0 [facility] Comment on above: Performed By: #### Laura RONDON CBCA, 1987-08, 11469-8 #### [facility] ([id number]) [address] [place] [address]27 #### 79697-0 #### [facility] ([id number]) [address], [address] [place] [address] Albumin DL <= 20 mg/L (U) [Mass/Vol] 195.2 mg/dL High 0.0-1.9 [facility] Comment on above: Performed By: #### Laura RONDON CBCA, 1987-08, 86000-4 #### [facility] ([id number]) [address] [place] [address] #### 14250-1 #### [facility] ([id number]) [address], [address] [place] [address] URINE CREAT 71.06 mg/dL Normal [facility] Comment on above: Performed By: #### Laura RONDON CBCA, 1987-08, 88058-5 #### [facility] ([id number]) [address] [place] [address] 25544 #### 50263-0 #### [facility] ([id number]) [address] [place] [address], [address] [place] [address] Natriuretic peptide.B prohor adrianne N-Terminal [Mass/Vol]on 05-06-2023 NT Pro BNP See Below Normal [facility] Comment on above: Result Comment: NOTE TEST RESULT FLAG UNIT REF.RANGE ---- PRO B Natr Peptide 314 H pg/mL <125 Test Performed By: [place] [address] Visual Specialist: Charlotte Hart III #[id number] Performed By: #### B MP, CBCA, 1987-, 39562-1 #### [facility] ([id number]) [address] [place] [address] #### 60954-6 #### [facility] ([id number]) [address] [place] [address], [address] [place] [address] URINALYSISon 05-06-2023 Bilirubin Ql (U) Negative Normal NEG [facility] Comment on above: Performed By: #### U A #### [facility] ([id number]) [address] [place] [address] BLOOD/HGB Trace Abnormal NEG [facility] Comment on above: Performed By: #### U A #### [facility] ([id number]) [address] [place] [address]53 Color (U) YELLOW Normal YELLOW [facility] Comment on above: Performed By: #### U A #### [facility] ([id number]) [address] [place] [address] Glucose Ql (U) >1000 Abnormal NEG [facility] Comment on above: Performed By: #### U A #### [facility] ([id number]) [address] [place] [address] Ketones Ql (U) Negative Normal NEG [facility] Comment on above: Performed By: #### U A #### [facility] ([id number]) [address] [place] [address]3069 Leukocyte esterase Test strip Ql (U) Negative Normal NEG [facility] Comment on above: Result Comment: HIGH CONCENTRATIONS OF GLUCOSE MAY DECREASE THE REACTIVITY OF THE DIPSTICK LEUKOCYTE TEST PAD. Performed By: #### U A #### [facility] ([id number]) [address] [place] [address]2869 MUCOUS PRESENT Abnormal NONE [facility] Comment on above: Performed By: #### U A #### [facility] ([id number]) [address] [place] [address] Nitrite Ql (U) Positive Abnormal NEG [facility] Comment on above: Performed By: #### U A #### [facility] ([id number]) [address] [place] [address]25 pH (U) 6.0 [pH] Normal 5.0-8.5 [facility] Comment on above: Performed By: #### U A #### [facility] ([id number]) [address] [place] [address]62 Protein Ql (U) >300 Abnormal NEG [facility] Comment on above: Performed By: #### U A #### [facility] ([id number]) [address] [place] [address] 38229 R.B.CELLS 5 /hpf Normal 0-5 [facility] Comment on above: Performed By: #### U A #### [facility] ([id number]) [address] [place] [address] 65525 Specific gravity (U) [Rel density] 1.015 Normal 1.003-1.035 [facility] Comment on above: Performed By: #### U A #### [facility] ([id number]) [address] [place] [address] 28494 SQUAMOUS EPITHELIUM 4 /hpf Normal 0-5 [facility] Comment on above: Performed By: #### U A #### [facility] ([id number]) [address] [place] [address]406 TURBIDITY HAZY Abnormal CLEAR [facility] Comment on above: Performed By: #### U A #### [facility] ([id number]) [address] [place] [address] 53859 Urobilinogen Qn (U) 0.2 {Chaya'U}/dL Normal <1.1 [facility] Comment on above: Performed By: #### U A #### [facility] ([id number]) [address] [place] [address] 13605 W.B.CELLS >100 High 0-5 [facility] Comment on above: Performed By: #### U A #### [facility] ([id number]) [address] [place] [address] 10008 URINE CULTUREon 05-06-2023 Bacteria identified Cx Nom (U) SPECIMEN NOTES URINE RECEIVED WITHOUT PRESERVATIVE CULTURE RESULTS MULTIPLE SPECIES PRESENT. PROBABLE COLLECTION CONTAMINATION. SUGGEST REPEAT SPECIMEN. URINE RECEIVED WITHOUT PRESERVATIVE-DELAYS IN TRANSPORT MAY AFFECT RESULTS.INTERPRET WITH CAUTION AND CLINICAL CORRELATION IS RECOMMENDED. Normal [facility] Comment on above: Performed By: #### B MP, CBCA, 1987-, 86287-5 #### [facility] ([id number]) [address] [place] [address] 95910 #### 04771-5 #### [facility] ([id number]) [address], [address] [place] [address] BASIC METABOLIC PANLon 04-19 Anion gap [Moles/Vol] 6 mmol/L Normal 5-15 [facility] Comment on above: Performed By: #### Laura RONDON CBCA, 1987-08, 01644-0 #### [facility] ([id number]) [address] [place] [address]102 #### 26107-4 #### [facility] ([id number]) [address], [address] [place] [address] Calcium [Mass/Vol] 8.6 mg/dL Normal 8.5-10.5 [facility] Comment on above: Performed By: #### Laura RONDON CBCA, 1987-08, 89800-1 #### [facility] ([id number]) [address] [place] [address] 41730 #### 15258-5 #### [facility] ([id number]) [address], [address] [place] [address] Chloride [Moles/Vol] 101 mmol/L Normal 98-109 [facility] Comment on above: Performed By: #### Laura RONDON CBCA, 1987-08, 73471-8 #### [facility] ([id number]) [address] [place] [address]135 #### 76509-3 #### [facility] ([id number]) [address], [address] [place] [address] CO2 [Moles/Vol] 19 mmol/L Low 22-32 [facility] Comment on above: Performed By: #### Laura RONDON CBCA, 1987-08, #### [facility] ([id number]) [address] [place] [address] 95774 #### 67155-1 #### [facility] ([id number]) [address] [facility] [facility] [place] [address] Creatinine [Mass/Vol] 2.57 mg/dL High 0.70-1.20 [facility] Comment on above: Result Comment: METH OD TRACEABLE TO IDMS STANDARD Performed By: #### B JAMES RONDON, 1987-08, 01281-9 #### [facility] ([id number]) [address] [place] [address] 16969 #### 54412-9 #### [facility] ([id number]) [address] [facility] [place] [address] GFR/1.73 sq M.predicted among non-blacks MDRD (S/P/Bld) [Vol rate/Area] 27 mL/min/{1.73_m2} Low >59 [facility] Comment on above: Result Comment: Reported eGFR is based on the CKD-EPI 2020 equation that does not use a race coefficient. Performed By: #### JAMES Sanchez MP, 1987-08, 76173-1 #### [facility] ([id number]) [address] [place] [address] 79277 #### 55770-0 #### [facility] ([id number]) [address] [facility] [place] [address] Glucose [Mass/Vol] 377 mg/dL High 65-99 [facility] Comment on above: Performed By: #### JAMES Sanchez MP, 1987-08, 78913-7 #### [facility] ([id number]) [address] [place] [address] 70233 #### 68495-3 #### [facility] ([id number]) [address] [facility], [address] [place] [address] Potassium [Moles/Vol] 4.2 mmol/L Normal 3.5-5.0 [facility] Comment on above: Performed By: #### B JAMES RONDON, 1987-08, #### [facility] ([id number]) [address] [place] [address] 56224 #### 81280-2 #### [facility] ([id number]) [address] [place] [address], [address] [place] [address] Sodium [Moles/Vol] 126 mmol/L Low 134-146 [facility] Comment on above: Performed By: #### JAMES Sanchez MP, 1987-08, #### [facility] ([id number]) [address] [place] [address]10 #### 66570-0 #### [facility] ([id number]) [address] [place] [address], [address] [place] [address] Urea nitrogen [Mass/Vol] 30 mg/dL High 5-27 [facility] Comment on above: Performed By: #### JAMES Sanchez MP, 1987-08, #### [facility] ([id number]) [address] [place] [address] 75888 #### 83992-0 #### [facility] ([id number]) [address] [place] [address], [address] [place] [address] CBC AND AUTO DIFFon 12-22-20 23 ABSOLUTE BASOPHIL 0.1 X10E9/L Normal 0.0-0.2 [facility] Comment on above: Performed By: #### JAMES Sanchez MP, 1987-08, #### [facility] ([id number]) [address] [place] [address] 89700 #### 74637-4 #### [facility] ([id number]) [address] [facility] [place] [address] ABSOLUTE NEUTROPHIL 8.8 X10E9/L High 1.5-6.6 [facility] Comment on above: Performed By: #### B ALCON, CBCA, 1987-08, 28543-4 #### [facility] ([id number]) [address] [place] [address] 62674 #### 08863-7 #### [facility] ([id number]) [address] [facility], [address] [place] [address] Basophils/100 WBC (Bld) 0.5 % Normal [facility] Comment on above: Performed By: #### B ALCON, CBCA, 1987-08, 23095-7 #### [facility] ([id number]) [address] [place] [address] 98873 #### 37135-9 #### [facility] ([id number]) [address] [facility], [address] [place] [address] Eosinophils (Bld) [#/Vol] 0.3 10*3/uL Normal 0.0-0.4 [facility] Comment on above: Performed By: #### Laura RONDON, CBCA, 1987-08, 74504-7 #### [facility] ([id number]) [address] [place] [address] 34112 #### 99896-3 #### [facility] ([id number]) [address] [facility] [place] [address] Eosinophils/100 WBC (Bld) 2.6 % Normal [facility] Comment on above: Performed By: #### Laura RONDON, CBCA, 1987-08, 68374-8 #### [facility] ([id number]) [address] [place] [address]1954 #### 76741-1 #### [facility] ([id number]) [address], [address] [place] [address] Erythrocyte distribution width (RBC) [Ratio] 15.5 % High 11.5-15.0 [facility] Comment on above: Performed By: #### B ALCON, CBCA, 1987-08, 63678-7 #### [facility] ([id number]) [address] [place] [address] #### 30713-2 #### [facility] ([id number]) [address] [facility] [place] [address] Hematocrit (Bld) [Volume fraction] 36.8 % Low 39-49 [facility] Comment on above: Performed By: #### B ALCON, CBCA, 1987-08, 68694-8 #### [facility] ([id number]) [address] [place] [address] #### 43794-7 #### [facility] ([id number]) [address] [facility] [place] [address] Hemoglobin (Bld) [Mass/Vol] 12.0 g/dL Low 13.0-17.0 [facility] Comment on above: Performed By: #### B ALCON, CBCA, 1987-08, 29391-4 #### [facility] ([id number]) [address] [place] [address] #### 08236-0 #### [facility] ([id number]) [address] [facility] [place] [address] Lymphocytes (Bld) [#/Vol] 1.9 10*3/uL Normal 1.0-3.5 [facility] Comment on above: Performed By: #### B ALCON, CBCA, 1987-08, 19797-1 #### [facility] ([id number]) [address] [place] [address] #### 20507-1 #### [facility] ([id number]) [address] [facility], [address] [place] [address] Lymphocytes/100 WBC (Bld) 15.1 % Normal [facility] Comment on above: Performed By: #### Laura RONDON, CBCA, 1987-08, 03534-9 #### [facility] ([id number]) [address] [place] [address] #### 11957-0 #### [facility] ([id number]) [address] [facility], [address] [place] [address] MCH (RBC) [Entitic mass] 28.2 pg Normal 27-34 [facility] Comment on above: Performed By: #### Laura RONDON, CBCA, 1987-08, #### [facility] ([id number]) [address] [place] [address] #### [id number] #### [facility] ([id number]) [address] [place] [address], [address] [place] [address] MCHC (RBC) [Mass/Vol] 32.7 g/dL Normal 32-36 [facility] Comment on above: Performed By: #### Laura RONDON, CBCA, 1987-08, #### [facility] ([id number]) [address] [place] [address] 11979 #### [id number] #### [facility] ([id number]) [address] [place] [address], [address] [place] [address] MCV (RBC) [Entitic vol] 86 fL Normal 80-100 [facility] Comment on above: Performed By: #### Laura RONDON, CBCA, 1987-08, #### [facility] ([id number]) [address] [place] [address] 67801 #### [id number] #### [facility] ([id number]) [address], [address] [place] [address] Monocytes (Bld) [#/Vol] 1.4 10*3/uL High 0-0.9 [facility] Comment on above: Performed By: #### B MP, CBCA, 1987-08, 79153-6 #### [facility] ([id number]) [address] [place] [address] 87453 #### [id number] #### [facility] ([id number]) [address] [facility] [place] [address] Monocytes/100 WBC (Bld) 11.2 % Normal [facility] Comment on above: Performed By: #### B MP, CBCA, 1987-08, 46062-9 #### [facility] ([id number]) [address] [place] [address] 05206 #### [id number] #### [facility] ([id number]) [address] [facility] [place] [address] Neutrophils/100 WBC (Bld) 70.6 % Normal [facility] Comment on above: Performed By: #### B MP, CBCA, 1987-08, #### [facility] ([id number]) [address] [place] [address] 33221 #### [id number] #### [facility] ([id number]) [address], [address] [place] [address] Platelet mean volume (Bld) [Entitic vol] 7.6 fL Normal 7-12 [facility] Comment on above: Performed By: #### B MP, CBCA, 1987-08, #### [facility] ([id number]) [address] [place] [address] 10432 #### [id number] #### [facility] ([id number]) [address] [place] [address], [address] [place] [address] Platelets (Bld) [#/Vol] 325 10*3/uL Normal 150-450 [facility] Comment on above: Performed By: #### B ALCON, CBCA, 1987-08, 99686-6 #### [facility] ([id number]) [address] [place] [address]7050 #### [id number] #### [facility] ([id number]) [address] [place] [address], [address] [address] RBC COUNT 4.27 X10E12/L Normal 4.10-5.70 [facility] Comment on above: Performed By: #### B ALCON, CBCA, 1987-08, 21060-9 #### [facility] ([id number]) [address] [place] [address] 19029 #### [id number] #### [facility] ([id number]) [address] [place] [address] WBC (Bld) [#/Vol] 12.5 10*3/uL High 4.0-11.0 [facility] Comment on above: Performed By: #### B MP, CBCA, 1987-08, 25519-4 #### [facility] ([id number]) [address] [place] [address] 74416 #### [id number] #### [facility] ([id number]) [address] [place] [address] CRP [Mass/Vol]on 04-19-2023 C REACTIVE PROTEIN 7.8 mg/dL High 0.000-0.744 [facility] Comment on above: Performed By: #### B MP, CBCA, 1987-08, 18309-8 #### [facility] ([id number]) [address] [place] [address] 91521 #### 88198-4 #### [facility] ([id number]) [address], [address] [place] [address] ESR Photometric method (Bld) [Velocity]on 04-19-2023 ESR, ERYTHROCYTE SEDIMENTATION RATE 115 mm/h High 0-20 [facility] Comment on above: Performed By: #### Laura RONDON CBCA, 1987-08, 32301-9 #### [facility] ([id number]) [address] [place] [address] 63412 #### 64805-9 #### [facility] ([id number]) [address] [facility] [place] [address] Natriuretic peptide.B prohor adrianne N-Terminal [Mass/Vol]on 04-19-2023 NT Pro BNP See Below Normal [facility] Comment on above: Result Comment: NOTE TEST RESULT FLAG UNIT REF.RANGE ---- PRO B Natr Peptide 587 H pg/mL <125 Test Performed By: [facility] [employer] [address] [place] [address] Visual Specialist: Charlotte Hart III #[id number] Performed By: #### Laura RONDON CBCA, 1987-08, 35151-9 #### [facility] ([id number]) [address] [place] [address] 83662 #### [id number] #### [facility] ([id number]) [address] [facility] [place] [address] Basic Metabolic Profon 02-27 Anion gap [Moles/Vol] 11 mmol/L Normal 9-17 [facility] Comment on above: Performed By: #### S ED, CRP, BMP, CDP #### [facility] [address] [place], [place] 357[address]83 Stone Rougher: Jameson Aaron MD BUN/CRE Ratio 16 Normal 9-20 [facility] Comment on above: Performed By: #### S ED, CRP, BMP, CDP #### [facility] [address] [place], [place] 0145683 Stone Rougher: Jameson Aaron MD Calcium [Mass/Vol] 9.4 mg/dL Normal 8.6-10.4 [facility] Comment on above: Performed By: #### S ED, CRP, BMP, CDP #### [address] [place], [place] 5530283 Stone Rougher: Jameson Aaron MD Chloride [Moles/Vol] 98 mmol/L Normal 98-107 [facility] Comment on above: Performed By: #### S ED, CRP, BMP, CDP #### [address] [place], [place] 3397483 Stone Rougher: Jameson Aaron MD CO2 [Moles/Vol] 18 mmol/L Low 20-31 [facility] Comment on above: Performed By: #### S ED, CRP, BMP, CDP #### [facility] [address] [place], [place] 6279083 Stone Rougher: Jameson Aaron MD Creatinine [Mass/Vol] 2.7 mg/dL High 0.7-1.2 [facility] Comment on above: Performed By: #### S ED, CRP, BMP, CDP #### [facility] [address] [place], [place] 5779583 Stone Rougher: Jameson Aaron MD GFR/1.73 sq M.predicted among non-blacks MDRD (S/P/Bld) [Vol rate/Area] 26 mL/min/{1.73_m2} Low >60 [facility] Comment on above: Result Comment: These [...] #### S ED, CRP, BMP, CDP #### [facility] [address] [place] [address] [place] [address] Stone Rougher: Jameson Aaron MD Glucose [Mass/Vol] 268 mg/dL High 70-99 [facility] Comment on above: Performed By: #### S EDLACIE BMP, CDP #### [facility] [address] [place] [address] [place] [address] Stone Rougher: Jameson Aaron MD Potassium [Moles/Vol] 5.2 mmol/L Normal 3.7-5.3 [facility] Comment on above: Performed By: #### S LACIE MANRIQUE BMP, CDP #### [address] [place], [place] 9899083 Stone Rougher: Jameson Aaron MD Sodium [Moles/Vol] 127 mmol/L Low 135-144 [facility] Comment on above: Performed By: #### S ED CRP, BMP, CDP #### [facility] [address] [place] [address] [place] [address] Stone Rougher: Jameson Aaron MD Urea nitrogen [Mass/Vol] 44 mg/dL High 8-23 [facility] Comment on above: Performed By: #### S ED CRP, BMP, CDP #### [facility] [address] [place] [address] Dr[place], [place] 1970883 Stone Rougher: Jameson Aaron MD C-Reactive Proteinon 023 CRP [Mass/Vol] 131.1 mg/L High 0.0-5.0 [facility] Comment on above: Performed By: #### S ED, CRP, BMP, CDP #### [facility] [address] [place] [address] Dr. [place], [facility] Stone Rougher: Jameson Aaron MD CBC with Diffon 02-27-2023 Abs. Basophil 0.06 k/uL Normal 0.00-0.20 [facility] Comment on above: Performed By: #### S ED, CRP, BMP, CDP #### [address] [place], [facility]83 Stone Rougher: Jameson Aaron MD Abs.Imm.Granulocyte 0.11 k/uL Normal 0.00-0.30 [facility] Comment on above: Performed By: #### S ED, CRP, BMP, CDP #### [address] [place], [place] [address] Stone Rougher: Jameson Aaron MD Abs.Neutrophil (Seg) 6.83 k/uL Normal 1.50-8.10 [facility] Comment on above: Performed By: #### S ED, CRP, BMP, CDP #### [address] [place], [facility]83 Stone Rougher: Jameson Aaron MD Basophils/100 WBC (Bld) 1 % Normal 0-2 [facility] Comment on above: Performed By: #### S ED, CRP, BMP, CDP #### [address] [place], [facility]83 Stone Rougher: Jameson Aaron MD Eosinophils (Bld) [#/Vol] 0.22 10*3/uL Normal 0.00-0.44 [facility] Comment on above: Performed By: #### S ED, CRP, BMP, CDP #### [address] [place], [place] 8277283 Stone Rougher: Jameson Aaron MD Eosinophils/100 WBC (Bld) 2 % Normal 1-4 [facility] Comment on above: Performed By: #### S ED, CRP, BMP, CDP #### [address] [place], [facility]83 Stone Rougher: Jameson Aaron MD Erythrocyte distribution width (RBC) [Ratio] 14.6 % High 11.8-14.4 [facility] Comment on above: Performed By: #### S ED, CRP, BMP, CDP #### [address] [place], [facility]83 Stone Rougher: Jameson Aaron MD Hematocrit (Bld) [Volume fraction] 41.9 % Normal 40.7-50.3 [facility] Comment on above: Performed By: #### S ED, CRP, BMP, CDP #### [address] [place], [facility]83 Stone Rougher: Jameson Aaron MD Hemoglobin (Bld) [Mass/Vol] 13.2 g/dL Normal 13.0-17.0 [facility] Comment on above: Performed By: #### S ED, CRP, BMP, CDP #### [address] [place], [facility]83 Stone Rougher: Jameson Aaron MD Immature granulocytes/100 WBC (Bld) 1 % High 0 [facility] Comment on above: Performed By: #### S ED, CRP, BMP, CDP #### [address] [place], [facility]83 Stone Rougher: Jameson Aaron MD Lymphocytes (Bld) [#/Vol] 1.83 10*3/uL Normal 1.10-3.70 [facility] Comment on above: Performed By: #### S ED, CRP, BMP, CDP #### [address] [place] [address] Stone Rougher: Jameson Aaron MD Lymphocytes/100 WBC (Bld) 18 % Low 24-43 [facility] Comment on above: Performed By: #### S ED, CRP, BMP, CDP #### [facility] [address] [place], [place] 0158183 Stone Rougher: Jameson Aaron MD MCH (RBC) [Entitic mass] 28.2 pg Normal 25.2-33.5 [facility] Comment on above: Performed By: #### S ED, CRP, BMP, CDP #### [facility] [address] [place], [place] 6396783 Stone Rougher: Jameson Aaron MD MCHC (RBC) [Mass/Vol] 31.5 g/dL Normal 28.4-34.8 [facility] Comment on above: Performed By: #### S ED, CRP, BMP, CDP #### [address] [place], [place] [address] Stone Rougher: Jameson Aaron MD MCV (RBC) [Entitic vol] 89.5 fL Normal 82.6-102.9 [facility] Comment on above: Performed By: #### S ED, CRP, BMP, CDP #### [address] [place], [facility]83 Stone Rougher: Jameson Aaron MD Monocytes (Bld) [#/Vol] 1.42 10*3/uL High 0.10-1.20 [facility] Comment on above: Performed By: #### S ED, CRP, BMP, CDP #### [facility] [address] [place] [address] Dr[place], [place] [phone] Stone Rougher: Jameson Aaron MD Monocytes/100 WBC (Bld) 14 % High 3-12 [facility] Comment on above: Performed By: #### S ED, CRP, BMP, CDP #### [facility] [address] [place], [place] 3549983 Stone Rougher: Jameson Aaron MD Neutrophil (Seg) 64 % Normal 36-65 [facility] Comment on above: Performed By: #### S ED, CRP, BMP, CDP #### [address] [place], [place] 4399883 Stone Rougher: Jameson Aaron MD NRBC Automated 0.0 per 100 WBC Normal 0.0 [facility] Comment on above: Performed By: #### S ED, CRP, BMP, CDP #### [address] [place] [address] Stone Rougher: Jameson Aaron MD Platelet mean volume (Bld) [Entitic vol] 9.4 fL Normal 8.1-13.5 [facility] Comment on above: Performed By: #### S ED, CRP, BMP, CDP #### [address] [place] [address] Stone Rougher: Jameson Aaron MD Platelets (Bld) [#/Vol] 266 10*3/uL Normal 138-453 [facility] Comment on above: Performed By: #### S ED, CRP, BMP, CDP #### [address] [place], [place] 5042183 Stone Rougher: Jameson Aaron MD RBC (Bld) [#/Vol] 4.68 10*6/uL Normal 4.21-5.77 [facility] Comment on above: Performed By: #### S ED, CRP, BMP, CDP #### [address] [place], [place] 5022283 Stone Rougher: Jameson Aaron MD WBC (Bld) [#/Vol] 10.5 10*3/uL Normal 3.5-11.3 [facility] Comment on above: Performed By: #### S ED, CRP, BMP, CDP #### [address] [place], [place] 3468283 Stone Rougher: Jameson Aaron MD Sedimentation Rateon 023 Sedimentation Rate 114 mm/Hr High 0-20 [facility] Comment on above: Performed By: #### S ED, CRP, BMP, CDP #### [facility] [address] [place], [place] 8890883 Stone Rougher: Jameson Aaron MD FUNGAL CULTUREon 09-21-2022 Fungus (Mycology) Culture Final report Abnormal [facility] Comment on above: Performed By: #### C XFUN ####[facility] [address] [place], [place] [address]Dr. Eddie Lerner Fungus Stain Final report Normal [facility] Comment on above: Performed By: #### C XFUN ####[facility] [address] [place], [place] [address]Dr. Eddie Lerner Result 1 Comment Normal [facility] Comment on above: Result Comment: ANNEMARIE/ Calcofluor preparation: no fungus observed. Performed By: #### C XFUN ####[facility] [address] [place], [place] [address]Dr. Eddie Lerner Result 1 Rosy albicans Abnormal [facility] Comment on above: Performed By: #### C XFUN ####[facility] [address] [place], [place] [address]Dr. Eddie Lerner CULTURE OTHERon 08-23-2022 CULTURE OTHER Isolate 1 Enterococcus faecalis Light growth of ORGANISM 1 Enterococcus faecalis ANTIBIOTIC M.I.C RX STATUS Beta-Lactamase Neg NEG F Benzylpenicillin 0.5 S F Ampicillin <=2 S F Gentamicin High Level (synergy) SYN-R R F Streptomycin High Level (synergy) SYN-S S F Quinupristin/Dalfopristin 4 R F Linezolid 1 S F Vancomycin 1 S F Normal [facility] Comment on above: Performed By: #### O THCX ####[facility] [address] [place], [place] [address]Dr. Eddie Lerner ACID FAST SMEAR AND CXon Acid Fast Smear Negative Normal [facility] Comment on above: Performed By: #### A FB ####[facility] [address] [place], [place] [address]Dr. 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 Eddie Lerner BNPon 08-20-2022 Natriuretic peptide B (Bld) [Mass/Vol] 648.0 pg/mL Normal <=900.0 [facility] Comment on above: Performed By: #### A 1C #### [facility] [address] [place] [address] [address] Eddie Lerner CULTURE ANAEROBICon 08-21-19 23 CULTURE ANAEROBIC Culture Observations : NO GROWTH OF ANAEROBES AT 72 HOURS. Normal [facility] Comment on above: Performed By: #### A NACX ####[facility] [address] [place], [place] [address]Dr. Eddie Lerner GLYCOHEMOGLOBIN A1Con 2022 ADA RECOMMENDATION SEE BELOW Normal [facility] Comment on above: Result Comment: ADA RECOMMENDED LIMIT 4.0 - 6.0 ADA THERAPEUTIC TARGET < 7.0 ACTION SUGGESTED > 7.0 Performed By: #### R ENAL, LIPID, LIVER, TSH #### [facility] [address] [place] [address] [address] Eddie Lerner Glucose [Mass/Vol] 235 mg/dL Normal [facility] Comment on above: Performed By: #### R ENAL, LIPID, LIVER, TSH #### [facility] [address] [place] [address] [address] Eddie Lerner HbA1c (Bld) [Mass fraction] 9.8 % Critically high 4.5-6.2 [facility] Comment on above: Performed By: #### R ENAL, LIPID, LIVER, TSH #### [facility] [address] [place] [address] [address] Eddie Lerner GRAM STAINon 08-20-2022 COMMENTS NO ORGANISMS OBSERVED Normal [facility] Comment on above: Performed By: #### G STAIN ####[facility] [address] [place] [address]Dr. Eddie Lerner DIPHTHEROIDS Normal [facility] Comment on above: Performed By: #### G STAIN ####[facility] [address] [place] [address]Dr. Eddie Lerner EPITHELIALS Normal [facility] Comment on above: Performed By: #### G STAIN ####[facility] [address] [place] [address]Dr. Eddie Lerner FUNGAL ELEMENTS Normal [facility] Comment on above: Performed By: #### G STAIN ####[facility] [address] [place], [place] [address]Dr. Eddie Lerner GRAM NEG BACILLI Normal [facility] Comment on above: Performed By: #### G STAIN ####[facility] [address] [place], [place] [address]Dr. Eddie Lerner GRAM NEG DIPPLOCOCCI Normal [facility] Comment on above: Performed By: #### G STAIN ####[facility] [address] [place], [place] [address]Dr. Eddie Lerner GRAM POS BACILLI Normal [facility] Comment on above: Performed By: #### G STAIN ####[facility] [address] [place], [place] [address]Dr. Eddie Lerner GRAM POSITIVE COCCI Normal [facility] Comment on above: Performed By: #### G STAIN ####[facility] [address] [place], [place] [address]Dr. Eddie Lerner GRAM STAIN SOURCE Lt Foot Bone Normal [facility] Comment on above: Performed By: #### G STAIN ####[facility] [address] [place], [place] [address]Dr. Eddie Lerner GS_DIPTH Normal [facility] Comment on above: Performed By: #### G STAIN ####[facility] [address] [place] [address]Dr. Eddie Lerner WBC RARE Normal [facility] Comment on above: Performed By: #### G STAIN ####[facility] [address] [place], [place] [address]Dr. Eddie Lerner LIPID PROFILEon 08-20-2022 CHOL-HDL RATIO NORM SEE BELOW Normal [facility] Comment on above: Result Comment: 3.3 - 4.4 LOW RISK 4.4 - 7.1 AVERAGE RISK 7.1 - 11.0 MODERATE RISK >11.0 HIGH RISK Performed By: #### A 1C #### [facility] [address] [place] [address] Dr. Eddie Lerner Cholesterol [Mass/Vol] 137 mg/dL Normal <=200 [facility] Comment on above: Performed By: #### A 1C #### [facility] [address] [place] [address] Dr. Eddie Lerner Cholesterol in HDL [Mass/Vol] 54 mg/dL Normal 40-60 [facility] Comment on above: Performed By: #### A 1C #### [facility] [address] [place] [address] Dr. Eddie Lerner Cholesterol in LDL [Mass/Vol] 63.2 mg/dL Normal [facility] Comment on above: Performed By: #### A 1C #### [facility] [address] [place] [address] Dr. Eddie Lerner Cholesterol.total/C holesterol in HDL [Mass ratio] 2.5 {ratio} Normal [facility] Comment on above: Performed By: #### A 1C #### [facility] [address] [place] [address] Dr. Eddie Lerner HDL NORMAL > or = 60 mg/dl - LO W CARDIOVASCULAR RISK <40 mg/dl - HIGH CARDIOVASCULAR RISK Normal [facility] Comment on above: Performed By: #### A 1C #### [facility] [address] [place] [address] Dr. Eddie Lerner LDL CALC NORMAL SEE BELOW Normal [facility] Comment on above: Result Comment: <100 mg/dl OPTIMAL 100 - 129 mg/dl NEAR OR ABOVE OPTIMAL 130 - 159 mg/dl BORDERLINE HIGH 160 - 189 mg/dl HIGH >190 mg/dl VERY HIGH Performed By: #### A 1C #### [facility] [address] [place] [address] Dr. Eddie Lerner Triglyceride [Mass/Vol] 99 mg/dL Normal <=150 [facility] Comment on above: Performed By: #### A 1C #### [facility] [address] [place] [address] Dr. Eddie Lerner VLDL CALC 19.8 mg/dL Normal [facility] Comment on above: Performed By: #### A 1C #### [facility] [address] [place] [address] Dr. Eddie Lerner LIVER PROFILEon 08-20-2022 Albumin [Mass/Vol] 2.8 g/dL Critically low 3.4-5.0 [facility] Comment on above: Performed By: #### A 1C #### [facility] [address] [place] [address] Dr. Eddie Lerner Albumin/Globulin [Mass ratio] 0.6 {ratio} Normal [facility] Comment on above: Performed By: #### A 1C #### [facility] [address] [place] [address] Dr. Eddie Lerner ALP [Catalytic activity/Vol] 87 U/L Normal 46-116 [facility] Comment on above: Performed By: #### A 1C #### [facility] [address] [place] [address] Dr. Eddie Lerner ALT [Catalytic activity/Vol] 49 U/L Normal 16-63 [facility] Comment on above: Performed By: #### A 1C #### [facility] [address] [place] [address] Dr. Eddie Lerner AST [Catalytic activity/Vol] 36 U/L Normal 15-37 [facility] Comment on above: Performed By: #### A 1C #### [facility] [address] [place] [address] Dr. Eddie Lerner BILI, CONJUGATED 0.1 mg/dL Normal 0.0-0.2 [facility] Comment on above: Performed By: #### A 1C #### [facility] [address] [place] [address] Dr. Eddie Lerner Bilirubin [Mass/Vol] 0.4 mg/dL Normal 0.2-1.0 [facility] Comment on above: Performed By: #### A 1C #### [facility] [address] [place] [address] Dr. Eddie Lerner Globulin (S) [Mass/Vol] 4.4 g/dL Normal [facility] Comment on above: Performed By: #### A 1C #### [facility] [address] [place] [address] Dr. Eddie Lerenr Protein [Mass/Vol] 7.2 g/dL Normal 6.4-8.2 [facility] Comment on above: Performed By: #### A 1C #### [facility] [address] [place] [address] Dr. Eddie Lerner POINT OF CARE GLUCOSEon 07-29 Glucose [Mass/Vol] 107 mg/dL Critically high 74-106 [facility] Comment on above: Performed By: #### P OCGLUC #### [facility] [address] [place] [address] Dr. Eddie Lerner Glucose [Mass/Vol] 108 mg/dL Critically high 74-106 [facility] Comment on above: Performed By: #### P OCGLUC ####[facility] [id number] [address] [place], [place] [address]DrVaishali Lerner TSHon 08-20-2022 TSH 2.247 uIU/mL Normal 0.358-3.740 [facility] Comment on above: Performed By: #### A 1C #### [facility] [address] [place] [address] Dr. Eddie Lerner CBC AUTO DIFFon 08-15-2022 BASO # 0.0 103/ul Normal 0.0-0.1 [facility] Comment on above: Performed By: #### C BC ####[facility] [address] [place], [place] [address]DrVaishali Lerner Basophils/100 WBC (Bld) 0.4 % Normal 0.2-2.0 [facility] Comment on above: Performed By: #### C BC ####[facility] [address] [place], [place] [address]DrVaishali Lerner EO # 0.2 103/ul Normal 0.0-0.7 [facility] Comment on above: Performed By: #### C BC ####[facility] [address] [place] [address]Dr. Eddie Lerner Eosinophils/100 WBC (Bld) 2.0 % Normal 0.9-7.0 [facility] Comment on above: Performed By: #### C BC ####[facility] [address] [place], [place] [address]Dr. Eddie Lerner Erythrocyte distribution width (RBC) [Ratio] 14.5 % Normal 11.0-15.0 [facility] Comment on above: Performed By: #### C BC ####[facility] [address] [place], [place] [address]Dr. Eddie Lerner Hematocrit (Bld) [Volume fraction] 40.5 % Critically low 42.0-54.0 [facility] Comment on above: Performed By: #### C BC ####[facility] X[address] [place], [place] [address]Dr. Eddie Lerner Hemoglobin (Bld) [Mass/Vol] 13.1 g/dL Critically low 14.0-18.0 [facility] Comment on above: Performed By: #### C BC ####[facility] Jed[address]kyqwo[address] [place], [place] [address]Dr. Eddie Lerner IG # 0.12 10e3/ul Critically high 0.00-0.03 [facility] Comment on above: Performed By: #### C BC ####[facility] F[address]fu[address] [place], [place] [address]Dr. Eddie Lerner IG % 1.2 % Critically high 0.0-0.5 [facility] Comment on above: Performed By: #### C BC ####[facility] Nnziq[address]cn[address] [place], [place] [address]Dr. Eddie Lerner LYMPH # 1.4 103/ul Normal 1.2-3.8 [facility] Comment on above: Performed By: #### C BC ####[facility] Fibmnatdsz[address] [place], [place] [address]Dr. Eddie eLrner Lymphocytes/100 WBC (Bld) 13.6 % Critically low 20.5-60.0 [facility] Comment on above: Performed By: #### C BC ####[facility] [address] [place] [id number]. Eddie Lerner MANUAL DIFF REQ NO Normal [facility] Comment on above: Performed By: #### C BC ####[facility] [address] [id number]. Eddie Lerner MCH (RBC) [Entitic mass] 29.8 pg Normal 25.9-34.0 [facility] Comment on above: Performed By: #### C BC ####[facility] [address] [place] [address]Dr. Eddie Lerner MCHC (RBC) [Mass/Vol] 32.3 g/dL Normal 29.9-35.2 [facility] Comment on above: Performed By: #### C BC ####[facility] [address] [place] [address]Dr. Eddie Lerner MCV (RBC) [Entitic vol] 92.0 fL Normal 80.0-94.0 [facility] Comment on above: Performed By: #### C BC ####[facility] I[address]beeb[address] [place], [place] [address]Dr. Eddie Yann MONO # 0.5 103/ul Normal 0.3-0.8 [facility] Comment on above: Performed By: #### C BC ####[facility] [address] [address]Dr. Eddie Yann Monocytes/100 WBC (Bld) 4.8 % Normal 1.7-12.0 [facility] Comment on above: Performed By: #### C BC ####[facility] [address] [place] [address]Dr. Eddie Lerner NEUT # 8.1 103/ul Critically high 1.4-6.5 [facility] Comment on above: Performed By: #### C BC ####[facility] [address] [place] [address]Dr. Eddie Lerner Neutrophils/100 WBC (Bld) 78.0 % Critically high 43.0-75.0 [facility] Comment on above: Performed By: #### C BC ####[facility] [address] [place] [id number]. Eddie Lenrer Platelet mean volume (Bld) [Entitic vol] 8.6 fL Critically low 9.5-13.5 [facility] Comment on above: Performed By: #### C BC ####[facility] [address]fm[address] [place] [id number]. Eddie Lerner PLT 240 103/ul Normal 150-450 [facility] Comment on above: Performed By: #### C BC ####[facility] [address] [place] [id number]. Eddie Lerner RBC 4.40 106/ul Critically low 4.70-6.10 [facility] Comment on above: Performed By: #### C BC ####[facility] [address] [place] [id number]. Eddie Lerner WBC 10.3 103/ul Normal 4.0-11.0 [facility] Comment on above: Performed By: #### C BC ####[facility] [address] [place] [address]DrVaishali Lerner CRPon 08-15-2022 CRP [Mass/Vol] mg/L Normal <=1.0 [facility] Comment on above: Performed By: #### A 1C #### [facility] [address] [place] [address] Dr. Eddie Lerner PROF CHEM 8 (BAS METB)on Anion gap [Moles/Vol] 14.4 mmol/L Normal [facility] Comment on above: Performed By: #### A 1C #### [facility] [address] [address] [address] Eddie Lerner Calcium [Mass/Vol] 9.2 mg/dL Normal 8.5-10.1 [facility] Comment on above: Performed By: #### A 1C #### [facility] [address] [address] [address] Eddie Lerner Chloride [Moles/Vol] 101 mmol/L Normal 98-107 [facility] Comment on above: Performed By: #### A 1C #### [facility] [address] [address] [address] Eddie Lerner CO2 [Moles/Vol] 25.2 mmol/L Normal 21.0-32.0 [facility] Comment on above: Performed By: #### A 1C #### [facility] [address] [address] [address] Eddie Lerner Creatinine [Mass/Vol] 3.07 mg/dL Critically high 0.70-1.30 [facility] Comment on above: Performed By: #### A 1C #### [facility] [address] [address] [address] Eddie Lerner EGFR-AF GUINEAN 25 mL/min/1.73m2 Critically low >=60 [facility] Comment on above: Performed By: #### A 1C #### [facility] [address] [address] [address] Eddie Lerner EGFR-NON AF GUINEAN 21 mL/min/1.73m2 Critically low >=60 [facility] Comment on above: Performed By: #### A 1C #### [facility] [address] [address] [address] Eddie Lerner Glucose [Mass/Vol] 415 mg/dL Critically high 74-106 [facility] Comment on above: Performed By: #### A 1C #### [facility] [address] [address] [address] Eddie Lerner Potassium [Moles/Vol] 5.6 mmol/L Critically high 3.5-5.1 [facility] Comment on above: Performed By: #### A 1C #### [facility] [address] [address] [address] Eddie Lerner Sodium [Moles/Vol] 135 mmol/L Critically low 136-145 [facility] Comment on above: Performed By: #### A 1C #### [facility] [address] [address] [address] Eddie Lerner Urea nitrogen [Mass/Vol] 34.0 mg/dL Critically high 7.0-18.0 [facility] Comment on above: Performed By: #### A 1C #### [facility] [address] [place] [address] Dr. Eddie Lerner Urea nitrogen/Creatinine [Mass ratio] 11.1 mg/mg Normal [facility] Comment on above: Performed By: #### A 1C #### [facility] [address] [place] [address] Dr. Eddie Lerner SED RATE WESTERGRENon 2022 SED RATE 59 mm/hr Critically high <=20 [facility] Comment on above: Performed By: #### S EDR ####[facility] [address] [place] [address]Dr. Eddie Lerner BNPon 06-06-2022 Natriuretic peptide B (Bld) [Mass/Vol] 1342.0 pg/mL Critically high <=900.0 [facility] Comment on above: Performed By: #### B SENIOR BUSINESS DEVELOPMENT MANAGER ####[facility] [address] [place], [place] [address]Dr. Eddie Lerner CBC AUTO DIFFon 06-06-2022 BASO # 0.1 103/ul Normal 0.0-0.1 [facility] Comment on above: Performed By: #### A 1C #### [facility] [address] [place] [address] Dr. Eddie Lerner Basophils/100 WBC (Bld) 0.6 % Normal 0.2-2.0 [facility] Comment on above: Performed By: #### A 1C #### [facility] [address] [place] [address] Dr. Eddie Lerner EO # 0.2 103/ul Normal 0.0-0.7 [facility] Comment on above: Performed By: #### A 1C #### [facility] [address] [place] [address] Dr. Eddie Lerner Eosinophils/100 WBC (Bld) 1.8 % Normal 0.9-7.0 [facility] Comment on above: Performed By: #### A 1C #### [facility] [address] [place] [address] Dr. Eddie Lerner Erythrocyte distribution width (RBC) [Ratio] 15.2 % Critically high 11.0-15.0 [facility] Comment on above: Performed By: #### A 1C #### [facility] [address] [place] [address] Dr. Eddie Lerner Hematocrit (Bld) [Volume fraction] 39.0 % Critically low 42.0-54.0 [facility] Comment on above: Performed By: #### A 1C #### [facility] [address] [place] [address] Dr. Eddie Lerner Hemoglobin (Bld) [Mass/Vol] 12.4 g/dL Critically low 14.0-18.0 [facility] Comment on above: Performed By: #### A 1C #### [facility] [address] [place] [address] Dr. Eddie Lerner IG # 0.21 10e3/ul Critically high 0.00-0.03 [facility] Comment on above: Performed By: #### A 1C #### [facility] [address] [place] [address] Dr. Eddie Lerner IG % 1.6 % Critically high 0.0-0.5 [facility] Comment on above: Performed By: #### A 1C #### [facility] [address] [place] [address] Dr. Eddie Lerner LYMPH # 1.9 103/ul Normal 1.2-3.8 [facility] Comment on above: Performed By: #### A 1C #### [facility] [address] [place] [address] Dr. Eddie Lerner Lymphocytes/100 WBC (Bld) 13.8 % Critically low 20.5-60.0 [facility] Comment on above: Performed By: #### A 1C #### [facility] [address] [place] [address] Dr. Eddie Lerner MANUAL DIFF REQ NO Normal [facility] Comment on above: Performed By: #### A 1C #### [facility] [address] [place] [address] Dr. Eddie Lerner MCH (RBC) [Entitic mass] 27.8 pg Normal 25.9-34.0 [facility] Comment on above: Performed By: #### A 1C #### [facility] [address] [address] [address] Eddie Lerner MCHC (RBC) [Mass/Vol] 31.8 g/dL Normal 29.9-35.2 [facility] Comment on above: Performed By: #### A 1C #### [facility] [address] [place] [address] Dr. Eddie Lerner MCV (RBC) [Entitic vol] 87.4 fL Normal 80.0-94.0 [facility] Comment on above: Performed By: #### A 1C #### [facility] [address] [place] [address] Dr. Eddie Lerner MONO # 0.8 103/ul Normal 0.3-0.8 [facility] Comment on above: Performed By: #### A 1C #### [facility] [address] [place] [address] Dr. Eddie Lerner Monocytes/100 WBC (Bld) 5.9 % Normal 1.7-12.0 [facility] Comment on above: Performed By: #### A 1C #### [facility] [address] [place] [address] Dr. Eddie Lerner NEUT # 10.3 103/ul Critically high 1.4-6.5 [facility] Comment on above: Performed By: #### A 1C #### [facility] [address] [place] [address] Dr. Eddie Lerner Neutrophils/100 WBC (Bld) 76.3 % Critically high 43.0-75.0 [facility] Comment on above: Performed By: #### A 1C #### [facility] [address] [place] [address] Dr. Eddie Lerner Platelet mean volume (Bld) [Entitic vol] 10.2 fL Normal 9.5-13.5 [facility] Comment on above: Performed By: #### A 1C #### [facility] [address] [place] [address] Dr. Eddie Lerner PLT 288 103/ul Normal 150-450 [facility] Comment on above: Performed By: #### A 1C #### [facility] [address] [place] [address] Dr. Eddie Lerner RBC 4.46 106/ul Critically low 4.70-6.10 [facility] Comment on above: Performed By: #### A 1C #### [facility] [address] [place] [address] Dr. Eddie Lerner WBC 13.5 103/ul Critically high 4.0-11.0 [facility] Comment on above: Performed By: #### A 1C #### [facility] [address] [place] [address] Dr. Eddie Lerner GLYCOHEMOGLOBIN A1Con 2022 ADA RECOMMENDATION SEE BELOW Normal [facility] Comment on above: Result Comment: ADA RECOMMENDED LIMIT 4.0 - 6.0 ADA THERAPEUTIC TARGET < 7.0 ACTION SUGGESTED > 7.0 Performed By: #### A 1C #### [facility] [address] [place] [address] Dr. Eddie Lerner Glucose [Mass/Vol] 283 mg/dL Normal [facility] Comment on above: Performed By: #### A 1C #### [facility] [address] [place] [address] Dr. Eddie Lerner HbA1c (Bld) [Mass fraction] 11.5 % Critically high 4.5-6.2 [facility] Comment on above: Performed By: #### A 1C #### [facility] [address] [place] [address] Dr. Eddie Lerner LIPID PROFILEon 06-06-2022 CHOL-HDL RATIO NORM SEE BELOW Normal [facility] Comment on above: Result Comment: 3.3 - 4.4 LOW RISK 4.4 - 7.1 AVERAGE RISK 7.1 - 11.0 MODERATE RISK >11.0 HIGH RISK Performed By: #### R ENAL, LIPID, LIVER, TSH #### [facility] [address] [place] [address] Dr. Eddie Lerner Cholesterol [Mass/Vol] 152 mg/dL Normal <=200 [facility] Comment on above: Performed By: #### R ENAL, LIPID, LIVER, TSH #### [facility] [address] [address] [address] Eddie Lerner Cholesterol in HDL [Mass/Vol] 51 mg/dL Normal 40-60 [facility] Comment on above: Performed By: #### R ENAL, LIPID, LIVER, TSH #### [facility] [address] [address] [address] Eddie Lerner Cholesterol in LDL [Mass/Vol] 61.0 mg/dL Normal [facility] Comment on above: Performed By: #### R ENAL, LIPID, LIVER, TSH #### [facility] [address] [address] [address] Eddie Lerner Cholesterol.total/C holesterol in HDL [Mass ratio] 3.0 {ratio} Normal [facility] Comment on above: Performed By: #### R ENAL, LIPID, LIVER, TSH #### [facility] [address] [address] [address] Eddie Lerner HDL NORMAL > or = 60 mg/dl - LO W CARDIOVASCULAR RISK <40 mg/dl - HIGH CARDIOVASCULAR RISK Normal [facility] Comment on above: Performed By: #### R ENAL, LIPID, LIVER, TSH #### [facility] [address] [address] [address] Eddie Lerner LDL CALC NORMAL SEE BELOW Normal [facility] Comment on above: Result Comment: <100 mg/dl OPTIMAL 100 - 129 mg/dl NEAR OR ABOVE OPTIMAL 130 - 159 mg/dl BORDERLINE HIGH 160 - 189 mg/dl HIGH >190 mg/dl VERY HIGH Performed By: #### R ENAL, LIPID, LIVER, TSH #### [facility] [address] [address] [address] Eddie Lerner Triglyceride [Mass/Vol] 200 mg/dL Critically high <=150 [facility] Comment on above: Performed By: #### R ENAL, LIPID, LIVER, TSH #### [facility] [address] [address] [address] Eddie Lerner VLDL CALC 40.0 mg/dL Normal [facility] Comment on above: Performed By: #### R ENAL, LIPID, LIVER, TSH #### [facility] [address] [address] [address] Eddie Lerner LIVER PROFILEon 06-06-2022 Albumin [Mass/Vol] 2.6 g/dL Critically low 3.4-5.0 [facility] Comment on above: Performed By: #### R ENAL, LIPID, LIVER, TSH #### [facility] [address] [place] [address] Dr. Eddie Lerner Albumin/Globulin [Mass ratio] 0.6 {ratio} Normal [facility] Comment on above: Performed By: #### R ENAL, LIPID, LIVER, TSH #### [facility] [address] [place] [address] Dr. Eddie Lerner ALP [Catalytic activity/Vol] 120 U/L Critically high 46-116 [facility] Comment on above: Performed By: #### R ENAL, LIPID, LIVER, TSH #### [facility] [address] [place] [address] Dr. Eddie Lerner ALT [Catalytic activity/Vol] 22 U/L Normal 16-63 [facility] Comment on above: Performed By: #### R ENAL, LIPID, LIVER, TSH #### [facility] [address] [place] [address] Dr. Eddie Lerner AST [Catalytic activity/Vol] 15 U/L Normal 15-37 [facility] Comment on above: Performed By: #### R ENAL, LIPID, LIVER, TSH #### [facility] [address] [place] [address] Dr. Eddie Lerner BILI, CONJUGATED 0.1 mg/dL Normal 0.0-0.2 [facility] Comment on above: Performed By: #### R ENAL, LIPID, LIVER, TSH #### [facility] [address] [place] [address] Dr. Eddei Lerner Bilirubin [Mass/Vol] 0.3 mg/dL Normal 0.2-1.0 [facility] Comment on above: Performed By: #### R ENAL, LIPID, LIVER, TSH #### [facility] [address] [place] [address] Dr. Eddie Lerner Globulin (S) [Mass/Vol] 4.7 g/dL Normal [facility] Comment on above: Performed By: #### R ENAL, LIPID, LIVER, TSH #### [facility] [address] [address] [address] Eddie Lerner Protein [Mass/Vol] 7.3 g/dL Normal 6.4-8.2 [facility] Comment on above: Performed By: #### R ENAL, LIPID, LIVER, TSH #### [facility] [address] [address] [address] Eddie Lerner RENAL FUNCTION PANELon 06-06 Calcium [Mass/Vol] 9.0 mg/dL Normal 8.5-10.1 [facility] Comment on above: Performed By: #### R ENAL, LIPID, LIVER, TSH #### [facility] [address] [place] [address] Dr. Eddie Lerner Chloride [Moles/Vol] 96 mmol/L Critically low 98-107 [facility] Comment on above: Performed By: #### R ENAL, LIPID, LIVER, TSH #### [facility] [address] [place] [address] Dr. Eddie Lerner CO2 [Moles/Vol] 21.8 mmol/L Normal 21.0-32.0 [facility] Comment on above: Performed By: #### R ENAL, LIPID, LIVER, TSH #### [facility] [address] [place] [address] Dr. Eddie Lerner Creatinine [Mass/Vol] 2.38 mg/dL Critically high 0.70-1.30 [facility] Comment on above: Performed By: #### R ENAL, LIPID, LIVER, TSH #### [facility] [address] [address] [address] Eddie Lerner EGFR-AF GUINEAN 34 mL/min/1.73m2 Critically low >=60 [facility] Comment on above: Performed By: #### R ENAL, LIPID, LIVER, TSH #### [facility] [address] [address] [address] Eddie Lerner EGFR-NON AF GUINEAN 28 mL/min/1.73m2 Critically low >=60 [facility] Comment on above: Performed By: #### R ENAL, LIPID, LIVER, TSH #### [facility] [address] [place] [address] Dr. Eddie Lerner Glucose [Mass/Vol] 523 mg/dL Critically high 74-106 T [facility] Comment on above: Performed By: #### R ENAL, LIPID, LIVER, TSH #### [facility] [address] [place] [address] Dr. Eddie Lerner Phosphate [Mass/Vol] 4.1 mg/dL Normal 2.6-4.7 [facility] Comment on above: Performed By: #### R ENAL, LIPID, LIVER, TSH #### [facility] [address] [place] [address] Dr. Eddie Lerner Potassium [Moles/Vol] 4.6 mmol/L Normal 3.5-5.1 [facility] Comment on above: Performed By: #### R ENAL, LIPID, LIVER, TSH #### [facility] [address] [place] [address] Dr. Eddie Lerner Sodium [Moles/Vol] 128 mmol/L Critically low 136-145 [facility] Comment on above: Performed By: #### R ENAL, LIPID, LIVER, TSH #### [facility] [address] [place] [address] Dr. Eddie Lerner Urea nitrogen [Mass/Vol] 28.0 mg/dL Critically high 7.0-18.0 [facility] Comment on above: Performed By: #### R ENAL, LIPID, LIVER, TSH #### [facility] [address] [place] [address] Dr. Eddie Lerner TSHon 06-06-2022 TSH 1.308 uIU/mL Normal 0.358-3.740 [facility] Comment on above: Performed By: #### R ENAL, LIPID, LIVER, TSH #### [facility] [address] [place] [address] Dr. Eddie Lerner UA RANDOMon 06-06-2022 Bilirubin Ql (U) Negative Normal NEGATIVE [facility] Comment on above: Performed By: #### U A #### [facility] [address] [place] [address] Dr. Eddie Lerner Clarity (U) CLEAR Normal CLEAR [facility] Comment on above: Performed By: #### U A #### [facility] [address] [place] [address] Dr. Eddie Lerner Color (U) LT. YELLOW Normal YELLOW [facility] Comment on above: Performed By: #### U A #### [facility] [address] [place] [address] Dr. Eddie Lerner Glucose Ql (U) >1000 Abnormal NEGATIVE [facility] Comment on above: Performed By: #### U A #### [facility] [address] [place] [address] Dr. Eddie Lerner Hemoglobin Ql (U) TRACE-INTACT Abnormal NEGATIVE [facility] Comment on above: Performed By: #### U A #### [facility] [address] [place] [address] Dr. Eddie Lerner Ketones Ql (U) Negative Normal NEGATIVE [facility] Comment on above: Performed By: #### U A #### [facility] [address] [place] [address] Dr. Eddie Lerner LEUKOCYTES Negative Normal NEGATIVE [facility] Comment on above: Performed By: #### U A #### [facility] [address] [place] [address] Dr. Eddie Lerner Nitrite Ql (U) Negative Normal NEGATIVE [facility] Comment on above: Performed By: #### U A #### [facility] [address] [place] [address] Dr. Eddie Lerner pH (U) 6.5 [pH] Normal 5-9 [facility] Comment on above: Performed By: #### U A #### [facility] [address] [place] [address] Dr. Eddie Lerner SPEC GRAVITY 1.010 Normal 1.005-<=1.025 [facility] Comment on above: Performed By: #### U A #### [facility] [address] [place] [address] Dr. Eddie Lerner UA PROTEIN 100 mg/dl Abnormal NEGATIVE/ TRACE [facility] [facility] Comment on above: Performed By: #### U A #### [facility] [address] [address] [address] Eddie Lerner Urobilinogen Qn (U) 0.2 {Chaya'U}/dL Normal 0.2 - 1. 0 [facility] Comment on above: Performed By: #### U A #### [facility] [address] [address] [address] Eddie Lerner VITAMIN D 25 OHon 06-06-2022 VIT D 25-OH 13.9 ng/mL Normal [facility] Comment on above: Performed By: #### V ITAD ####[facility] [address] [address]Dr. Eddie Lerner VIT D RANGES SEE BELOW Normal [facility] Comment on above: Result Comment: <20 ng/mL Vit D deficient 20 - <30 ng/mL Vit D insufficient 30 - 100 ng/mL Vit D sufficient >100 ng/mL Potential Toxicity Performed By: #### V ITAD ####[facility] [address] [place], [place] [address]Dr. Eddie Lerner ACID FAST SMEAR AND CXon Acid Fast Culture Negative Normal [facility] Comment on above: Result Comment: No a wendy fast bacilli isolated after 6 weeks. Performed By: #### A FB ####[facility] [address] [place], [place] [address]Dr. Eddie Lerner Acid Fast Smear Negative Normal [facility] Comment on above: Performed By: #### A FB ####[facility] [address] [address]Dr. Eddie Lerner [employer] Specimen Processing Tissue Grinding Normal [facility] Comment on above: Performed By: #### A FB ####[facility] [address] [address]Dr. Eddie Lerner FUNGAL CULTUREon 01-19-2022 Fungus (Mycology) Culture Final report Normal [facility] Comment on above: Performed By: #### R ENAL, LIPID, LIVER, TSH #### [facility] [address] [address] [address] Eddie Lerner Fungus Stain Final report Normal [facility] Comment on above: Performed By: #### R ENAL, LIPID, LIVER, TSH #### [facility] [address] [address] [address] Eddie Lerner Result 1 Comment Normal [facility] Comment on above: Result Comment: ANNEMARIE/ Calcofluor preparation: no fungus observed. Performed By: #### R ENAL, LIPID, LIVER, TSH #### [facility] [address] [address] [address] Eddie Lerner Result Comment: No y east or mold isolated after 4 weeks. POINT OF CARE GLUCOSEon 12-28 Glucose [Mass/Vol] 177 mg/dL Critically high 74-106 [facility] Comment on above: Performed By: #### A 1C #### [facility] [address] [address] [address] Eddie Lerner Glucose [Mass/Vol] 200 mg/dL Critically high -106 [facility] Comment on above: Performed By: #### P OCGLUC ####[facility] [address] [address]Dr. Eddie Lerner [facility]28 SARS-CoV-2 (COVID-19) RNA SUDHA+probe Ql (Unsp spec) Not detected Normal NOT DETECTED [facility] Comment on above: Result Comment: This test is not yet approved or cleared by the [place] FDA. When there are no FDA-approved or cleared tests available, and other criteria are met, FDA can make tests available under an emergency access mechanism called an Emergency Use Authorization (EUA). The EUA for this test is supported by the [place] of Health and Human Service's (HHS's) declaration [...] SARS-CoV-2. Performed By: #### A 1C #### [facility] [address] [place] [address] Dr. Eddie Lerner PROF CHEM 8 (BAS METB)on Anion gap [Moles/Vol] 15.0 mmol/L Normal [facility] Comment on above: Performed By: #### R ENAL, LIPID, LIVER, TSH #### [facility] [address] [place] [address] Dr. Eddie Lerner Calcium [Mass/Vol] 9.3 mg/dL Normal 8.5-10.1 [facility] Comment on above: Performed By: #### R ENAL, LIPID, LIVER, TSH #### [facility] [address] [place] [address] Dr. Eddie Lerner Chloride [Moles/Vol] 105 mmol/L Normal 98-107 [facility] Comment on above: Performed By: #### R ENAL, LIPID, LIVER, TSH #### [facility] [address] [place] [address] Dr. Eddie Lerner CO2 [Moles/Vol] 22.1 mmol/L Normal 21.0-32.0 [facility] Comment on above: Performed By: #### R ENAL, LIPID, LIVER, TSH #### [facility] [address] [place] [address] Dr. Eddie Lerner Creatinine [Mass/Vol] 2.29 mg/dL Critically high 0.70-1.30 [facility] Comment on above: Performed By: #### R ENAL, LIPID, LIVER, TSH #### [facility] [address] [place] [address] Dr. Eddie Lerner EGFR-AF GUINEAN 35 mL/min/1.73m2 Critically low >=60 [facility] Comment on above: Performed By: #### R ENAL, LIPID, LIVER, TSH #### [facility] [address] [address] [address] Eddie Lerner EGFR-NON AF GUINEAN 29 mL/min/1.73m2 Critically low >=60 [facility] Comment on above: Performed By: #### R ENAL, LIPID, LIVER, TSH #### [facility] [address] [address] [address] Eddie Lerner Glucose [Mass/Vol] 115 mg/dL Critically high 74-106 [facility] Comment on above: Performed By: #### R ENAL, LIPID, LIVER, TSH #### [facility] [address] [address] [address] Eddie Lerner Potassium [Moles/Vol] 5.1 mmol/L Normal 3.5-5.1 [facility] Comment on above: Performed By: #### R ENAL, LIPID, LIVER, TSH #### [facility] [address] [address] [address] Eddie Lerner Sodium [Moles/Vol] 137 mmol/L Normal 136-145 [facility] Comment on above: Performed By: #### R ENAL, LIPID, LIVER, TSH #### [facility] [address] [address] [address] Eddie Lerner Urea nitrogen [Mass/Vol] 26.0 mg/dL Critically high 7.0-18.0 [facility] Comment on above: Performed By: #### R ENAL, LIPID, LIVER, TSH #### [facility] [address] [address] [address] Eddie Lerner Urea nitrogen/Creatinine [Mass ratio] 11.4 mg/mg Normal [facility] Comment on above: Performed By: #### R ENAL, LIPID, LIVER, TSH #### [facility] [address] [address] [address] Eddie Lerner TISSUE CULTUREon 01-08-2022 Anaerobic Culture, Extended Incubation Final report Normal [facility] Comment on above: Performed By: #### C XTISSU ####[facility] [address] [address]Dr. Eddie Lerner Result 1 Comment Normal [facility] Comment on above: Result Comment: Diph theroids, not Corynebacterium jeikeium Light growth Susceptibility not normally performed on this organism. Performed By: #### C XTISSU ####[facility] [address] [address]Dr. Eddie Lerner Result Comment: No shira gonsalves recovered. Tissue Culture Final report Abnormal [facility] Comment on above: Performed By: #### C XTISSU ####[facility] [address] [address]Dr. Eddie Lerner POINT OF CARE GLUCOSEon 11-28 Glucose [Mass/Vol] 89 mg/dL Normal 74-106 [facility] Comment on above: Performed By: #### R ENAL, LIPID, LIVER, TSH #### [facility] [address] [address] [address] Eddie Lerner Glucose [Mass/Vol] 85 mg/dL Normal 74-106 [facility] Comment on above: Performed By: #### P OCGLUC ####[facility] [address] [address]Dr. Eddie Lerner GRAM STAINon 12-21-2021 COMMENTS NO ORGANISMS OBSERVED Normal [facility] Comment on above: Performed By: #### R ENAL, LIPID, LIVER, TSH #### [facility] [address] [address] [address] Eddie Lerner DIPHTHEROIDS Normal [facility] Comment on above: Performed By: #### R ENAL, LIPID, LIVER, TSH #### [facility] [address] [address] [address] Eddie Lerner EPITHELIALS Normal [facility] Comment on above: Performed By: #### R ENAL, LIPID, LIVER, TSH #### [facility] [address] [address] [address] Eddie Lerner FUNGAL ELEMENTS Normal [facility] Comment on above: Performed By: #### R ENAL, LIPID, LIVER, TSH #### [facility] [address] [address] [address] Eddie Lerner GRAM NEG BACILLI Normal [facility] Comment on above: Performed By: #### R ENAL, LIPID, LIVER, TSH #### [facility] [address] [address] [address] Eddie Lerner GRAM NEG DIPPLOCOCCI Normal [facility] Comment on above: Performed By: #### R ENAL, LIPID, LIVER, TSH #### [facility] [address] [address] [address] Eddie Lerner GRAM POS BACILLI Normal [facility] Comment on above: Performed By: #### R ENAL, LIPID, LIVER, TSH #### [facility] [address] [address] [address] Eddie Lerner GRAM POSITIVE COCCI Normal [facility] Comment on above: Performed By: #### R ENAL, LIPID, LIVER, TSH #### [facility] [address] [address] [address] Eddie Lerner GRAM STAIN SOURCE Lt 1st Metatarsal Bone Normal [facility] Comment on above: Performed By: #### R ENAL, LIPID, LIVER, TSH #### [facility] [address] [address] [address] Eddie Lerner GS_DIPTH [facility] Comment on above: Performed By: #### R ENAL, LIPID, LIVER, TSH #### [facility] [address] [address] [address] Eddie Lerner WBC RARE Normal [facility] Comment on above: Performed By: #### R ENAL, LIPID, LIVER, TSH #### [facility] [address] [address] [address] Eddie Lerner POINT OF CARE GLUCOSEon 11-28 Glucose [Mass/Vol] 148 mg/dL Critically high 74-106 [facility] Comment on above: Performed By: #### A 1C #### [facility] [address] [address] [address] Eddie Lerner Glucose [Mass/Vol] 100 mg/dL Normal 74-106 [facility] Comment on above: Performed By: #### P OCGLUC ####[facility] [address] [address]Dr. Eddie Lerner Glucose [Mass/Vol] 85 mg/dL Normal 74-106 [facility] Comment on above: Performed By: #### P OCGLUC ####[facility] [address] [place], [place] [address]Dr. Eddie Lerner Glucose [Mass/Vol] 83 mg/dL Normal 74-106 [facility] Comment on above: Performed By: #### R ENAL, LIPID, LIVER, TSH #### [facility] [address] [address] [address] Eddie Lerner Covid-19 PCR (CVDTB)on 11-28 SARS-CoV-2 (COVID-19) RNA SUDHA+probe Ql (Unsp spec) Not detected Normal NOT DETECTED [facility] Comment on above: Result Comment: This test is not yet approved or cleared by the [place] FDA. When there are no FDA-approved or cleared tests available, and other criteria are met, FDA can make tests available under an emergency access mechanism called an Emergency Use Authorization (EUA). The EUA for this test is supported by the [place] of Health and Human Service's (HHS's) declaration [...] with SARS-CoV-2. Performed By: #### C VDTBH ####[facility] [address] [place], [place] [address]HhDr. Eddie Lerner PROF CHEM 8 (BAS METB)on Anion gap [Moles/Vol] 11.5 mmol/L Normal [facility] Comment on above: Performed By: #### R ENAL, LIPID, LIVER, TSH #### [facility] [id number] Eddie Lerner Calcium [Mass/Vol] 9.0 mg/dL Normal 8.5-10.1 [facility] Comment on above: Performed By: #### R ENAL, LIPID, LIVER, TSH #### [facility] [address] [address] [address] Eddie Lerner Chloride [Moles/Vol] 102 mmol/L Normal 98-107 [facility] Comment on above: Performed By: #### R ENAL, LIPID, LIVER, TSH #### [facility] [address] [address] [address] Eddie Lerner CO2 [Moles/Vol] 24.8 mmol/L Normal 21.0-32.0 [facility] Comment on above: Performed By: #### R ENAL, LIPID, LIVER, TSH #### [facility] [address] [address] [address] Eddie Lerner Creatinine [Mass/Vol] 2.19 mg/dL Critically high 0.70-1.30 [facility] Comment on above: Performed By: #### R ENAL, LIPID, LIVER, TSH #### [facility] [address] [address] [address] Eddie Lerner EGFR-AF GUINEAN 37 mL/min/1.73m2 Critically low >=60 [facility] Comment on above: Performed By: #### R ENAL, LIPID, LIVER, TSH #### [facility] [address] [place] [address] Dr. Eddie Lerner EGFR-NON AF GUINEAN 31 mL/min/1.73m2 Critically low >=60 [facility] Comment on above: Performed By: #### R ENAL, LIPID, LIVER, TSH #### [facility] [address] [address] [address] Eddie Lerner Glucose [Mass/Vol] 330 mg/dL Critically high 74-106 [facility] Comment on above: Performed By: #### R ENAL, LIPID, LIVER, TSH #### [facility] [address] [address] [address] Eddie Lerner Potassium [Moles/Vol] 5.3 mmol/L Critically high 3.5-5.1 [facility] Comment on above: Performed By: #### R ENAL, LIPID, LIVER, TSH #### [facility] [address] [address] [address] Eddie Lerner Sodium [Moles/Vol] 133 mmol/L Critically low 136-145 [facility] Comment on above: Performed By: #### R ENAL, LIPID, LIVER, TSH #### [facility] [address] [address] [address] Eddie Lerner Urea nitrogen [Mass/Vol] 25.0 mg/dL Critically high 7.0-18.0 [facility] Comment on above: Performed By: #### R ENAL, LIPID, LIVER, TSH #### [facility] [address] [address] [address] Eddie Lerner Urea nitrogen/Creatinine [Mass ratio] 11.4 mg/mg Normal [facility] Comment on above: Performed By: #### R ENAL, LIPID, LIVER, TSH #### [facility] [address] [address] [address] Eddie Lerner Comprehensive Metabolic Pane babatunde 08-01-2021 Albumin [Mass/Vol] 2.8 g/dL Low 3.2-5.5 [facility] Comment on above: Order Comment: REDRA W FOR SHORT DRAW AND HEMOLYSIS Performed By: #### P P #### [facility] [address] [place] [address] [place] Albumin/Globulin [Mass ratio] 0.7 {ratio} Normal [facility] Comment on above: Order Comment: REDRA W FOR SHORT DRAW AND HEMOLYSIS Performed By: #### P P #### [facility] [address] [id number] [place] ALP [Catalytic activity/Vol] 87 U/L Normal 32-92 [facility] Comment on above: Order Comment: REDRA W FOR SHORT DRAW AND HEMOLYSIS Performed By: #### P P #### [facility] [address] [phone] [place] ALT [Catalytic activity/Vol] 18 U/L Normal 10-60 [facility] Comment on above: Order Comment: REDRA W FOR SHORT DRAW AND HEMOLYSIS Performed By: #### P P #### [address] AST [Catalytic activity/Vol] 20 U/L Normal 10-42 [facility] Comment on above: Order Comment: REDRA W FOR SHORT DRAW AND HEMOLYSIS Performed By: #### P P #### [address] Bilirubin [Mass/Vol] 0.6 mg/dL Normal 0.3-1.2 [facility] Comment on above: Order Comment: REDRA W FOR SHORT DRAW AND HEMOLYSIS Performed By: #### P P #### [address] Calcium [Mass/Vol] 8.9 mg/dL Normal 8.2-10.2 [facility] Comment on above: Order Comment: REDRA W FOR SHORT DRAW AND HEMOLYSIS Performed By: #### P P #### [address] Chloride [Moles/Vol] 103 mmol/L Normal 95-114 [facility] Comment on above: Order Comment: REDRA W FOR SHORT DRAW AND HEMOLYSIS Performed By: #### P P #### [address] CO2 [Moles/Vol] 24.7 mmol/L Normal 22.0-30.0 [facility] Comment on above: Order Comment: REDRA W FOR SHORT DRAW AND HEMOLYSIS Performed By: #### P P #### [address] Creatinine [Mass/Vol] 2.34 mg/dL High 0.64-1.27 [facility] Comment on above: Order Comment: REDRA W FOR SHORT DRAW AND HEMOLYSIS Performed By: #### P P #### [address] Estimated GFR ( Camilla 34 Normal [facility] Comment on above: Order Comment: REDRA W FOR SHORT DRAW AND HEMOLYSIS Result Comment: GFR estimated reference range: According to KDOQI guidelines, <60 ml/min/1.73m2 is sufficient to diagnose a patient with chronic kidney disease. Performed By: #### P P #### [facility] [address] [id number] [place] Estimated GFR (Non- Am 28 Normal [facility] Comment on above: Order Comment: REDRA W FOR SHORT DRAW AND HEMOLYSIS Performed By: #### P P #### [facility] [address] [phone] [place] Globulin (S) [Mass/Vol] 3.9 g/dL Normal [facility] Comment on above: Order Comment: REDRA W FOR SHORT DRAW AND HEMOLYSIS Performed By: #### P P #### [facility] [address] Glucose [Mass/Vol] 171 mg/dL High 70-100 [facility] Comment on above: Order Comment: REDRA W FOR SHORT DRAW AND HEMOLYSIS Result Comment: [facility] Glucose Reference Range is dependent on time and content of last meal. Glucose of more than 200 mg/dL in a nonstressed, ambulatory subject supports the diagnosis of Diabetes Mellitus. ADA recommended reference range Performed By: #### P P #### [facility] [address] [phone] [facility] Potassium [Moles/Vol] 4.0 mmol/L Normal 3.5-5.1 [facility] Comment on above: Order Comment: REDRA W FOR SHORT DRAW AND HEMOLYSIS Performed By: #### P P #### [facility] [address] [place] [address] [place] Protein [Mass/Vol] 6.7 g/dL Normal 6.1-7.9 [facility] Comment on above: Order Comment: REDRA W FOR SHORT DRAW AND HEMOLYSIS Performed By: #### P P #### [facility] [address] [phone] [place] Sodium [Moles/Vol] 138 mmol/L Normal 136-146 [facility] Comment on above: Order Comment: REDRA W FOR SHORT DRAW AND HEMOLYSIS Performed By: #### P P #### [facility] [address] [phone] [place] Urea nitrogen [Mass/Vol] 18 mg/dL Normal 9-23 [facility] Comment on above: Order Comment: REDRA W FOR SHORT DRAW AND HEMOLYSIS Performed By: #### P P #### [address] Ferritinon 08-01-2021 Ferritin [Mass/Vol] 151.9 ng/mL Normal 23.9-336.2 [facility] Comment on above: Order Comment: Reaso n for Exam CKD (chronic kidney disease) stage 4, GFR 15-29 ml/min;Diabe Performed By: #### C MP, CBC, MG, TROP, BNP #### [address] Hemogram CBC Without Diffon 08-01-2021 Erythrocyte distribution width (RBC) [Ratio] 15.9 % High 12.0-14.8 [facility] Comment on above: Order Comment: REDRA W FOR SHORT DRAW AND HEMOLYSIS Performed By: #### P P #### [address] Hematocrit (Bld) [Volume fraction] 38.9 % Normal 38.8-50.0 [facility] Comment on above: Order Comment: REDRA W FOR SHORT DRAW AND HEMOLYSIS Performed By: #### P P #### [address] Hemoglobin (Bld) [Mass/Vol] 12.9 g/dL Low 13.0-17.0 [facility] Comment on above: Order Comment: REDRA W FOR SHORT DRAW AND HEMOLYSIS Performed By: #### P P #### [address] MCH (RBC) [Entitic mass] 28.4 pg Normal 27.5-35.2 [facility] Comment on above: Order Comment: REDRA W FOR SHORT DRAW AND HEMOLYSIS Performed By: #### P P #### [address] MCV (RBC) [Entitic vol] 85.7 fL Normal 83.5-101 [facility] Comment on above: Order Comment: REDRA W FOR SHORT DRAW AND HEMOLYSIS Performed By: #### P P #### [address] Mean Corpuscular HGB Conc 33.1 g/dL Normal 32.5-35.6 [facility] Comment on above: Order Comment: REDRA W FOR SHORT DRAW AND HEMOLYSIS Performed By: #### P P #### [address] Platelet mean volume (Bld) [Entitic vol] 7.8 fL Normal 6.6-10.1 [facility] Comment on above: Order Comment: REDRA W FOR SHORT DRAW AND HEMOLYSIS Result Comment: PERF ORMED BY: [place] [address] PATHOLOGIST [employer]IP[employer]ER JORDAN RODRIGUEZ M.D. Performed By: #### P P #### [address] Platelets (Bld) [#/Vol] 352 10*3/uL Normal 150-450 [facility] Comment on above: Order Comment: REDRA W FOR SHORT DRAW AND HEMOLYSIS Performed By: #### P P #### [address] RBC (Bld) [#/Vol] 4.54 10*6/uL Normal 3.90-5.60 [facility] Comment on above: Order Comment: REDRA W FOR SHORT DRAW AND HEMOLYSIS Performed By: #### P P #### [address] WBC (Bld) [#/Vol] 9.1 10*3/uL Normal 4.1-10.5 [facility] Comment on above: Order Comment: REDRA W FOR SHORT DRAW AND HEMOLYSIS Performed By: #### P P #### [address] Iron and TIBC Profileon 04-0 5-2021 % Iron Saturation 24.0 % Normal 20-50 [facility] Comment on above: Order Comment: REDRA W FOR SHORT DRAW AND HEMOLYSIS Performed By: #### P P #### [facility] [address] Iron [Mass/Vol] 47 ug/dL Normal 40-160 [facility] Comment on above: Order Comment: REDRA W FOR SHORT DRAW AND HEMOLYSIS Performed By: #### P P #### [address] Total Iron Binding Capacity 192 ug/dL Low 255-450 [facility] Comment on above: Order Comment: REDRA W FOR SHORT DRAW AND HEMOLYSIS Performed By: #### P P #### [address] Transferrin [Mass/Vol] 137 mg/dL Low 180-380 [facility] Comment on above: Order Comment: REDRA W FOR SHORT DRAW AND HEMOLYSIS Performed By: #### P P #### [address] Magnesiumon 08-01-2021 Magnesium [Mass/Vol] 2.2 mg/dL Normal 1.6-2.6 [facility] Comment on above: Order Comment: REDRA W FOR SHORT DRAW AND HEMOLYSIS Performed By: #### P P #### [address] Parathyroid Hormone Intacton 08-01-2021 Parathyroid Hormone Intact 31.2 pg/mL Normal 12-88 [facility] Comment on above: Order Comment: Reaso n for Exam CKD (chronic kidney disease) stage 4, GFR 15-29 ml/min;Diabe Result Comment: PERF ORMED BY: [place] [address] PATHOLOGIST [employer]Y CLIPPER TENDER JORDAN RODRIGUEZ M.D. Performed By: #### C MP, CBC, MG, TROP, BNP #### [address] Uric Acidon 08-01-2021 Urate [Mass/Vol] 8.4 mg/dL High 2.6-7.2 [facility] Comment on above: Order Comment: REDRA W FOR SHORT DRAW AND HEMOLYSIS Performed By: #### P P #### [address] Vitamin D 25 Hydroxy Totalon 08-01-2021 Vitamin D 25 Hydroxy Total 28.2 ng/mL Low 30-100 [facility] Comment on above: Order Comment: Reaso n for Exam CKD (chronic kidney disease) stage 4, GFR 15-29 ml/min;Diabe Result Comment: ADA MIN D STATUS 25(OH)VITAMIN D RANGE (ng/mL) Deficient <20 Insufficient 20 to <30 Sufficient 30 to 100 Reference: Aki MF,Oriana NGUYEN, Elli JONAS, et al. Evaluation,treatment, and prevention of vitamin D deficiency; an Endocrine Society clinical practice guideline. JCEM. 2010; 96(7):1911-30. Performed By: #### C MP, CBC, MG, TROP, BNP #### [place] [id number] [facility] Complete Pulmonary Functiono n 09-28-2020 Complete Pulmonary Function [facility] [place] [address] [place] [address] Pulmonary Function Signed Patient: Rashard Lyman MR#: [id number] : 1960 Acct:[id number] Age/Sex: 60 / M ADM Date: 09/28/20 Loc: RT Room: Type: [facility] Attending Dr: USMAN Stover APRN Ordering [...] to 2.21 L or 50% predicted. The DTB08-81% is reduced at 1.92 L/sec or 54% predicted. After administration of bronchodilators, there is an insignificant 5% improvement in the forced vital capacity and 5% improvement in the FEV1. The PWR96-98% improves insignificantly by 10%. LUNG VOLUMES: Lung [...] adequate pulmonary function studies reveal evidence of [id number] restriction without clear evidence of obstruction nor [...] MD 09/28/20 1305 Signed By: 09/28/20 1505 [facility] echo limited 1 [facility] echo [facility] [place] [address] Echocardiogram Signed Patient: Rashard Lyman MR#: [id number] : 1960 Acct:[id number] Age/Sex: 60 / M ADM Date: 09/06/20 Loc: Room: Type: [facility] Attending Dr: Gautam Bazan MD Ordering Provider: Gautam Bazan MD Date of Service: 09/06/20 [facility] echo limited: re assess pericardial effusions Copies to: Nancy Jackson MD, [facility] Gautam Bazan MD Weight: 354 lb [...] 09/06/20 1626 Dictated By: Nancy Jackson MD, [facility] 09/06/20 1232 Signed By: 09/06/20 1626 Normal [facility] Albumin [Mass/volume] in Ser um or Plasmaon 08-25-2020 Albumin [Mass/Vol] 2.0 g/dL 3.2-5.5 [facility] Basophils Auto (Bld) [#/Vol] on 08-25-2020 Basophils (Bld) [#/Vol] 0.0 10*3/uL 0.0-0.2 [facility] Basophils/100 WBC Auto (Bld) on 08-25-2020 Basophils/100 WBC (Bld) 0.1 % [facility] Blood anisocytosis detection on 08-25-2020 Anisocytosis Ql (Bld) Slight [facility] Blood hemoglobin measurement (mass/volume)on 08-25-2020 Hemoglobin (Bld) [Mass/Vol] 10.1 g/dL 13.0-17.0 [facility] Blood leukocytes automated c ount (number/volume)on 08-25-2020 WBC (Bld) [#/Vol] 12.6 10*3/uL 4.5-11.0 [facility] Blood polychromasia detectio n by light microscopyon 08-25-2020 Polychromasia LM Ql (Bld) Slight [facility] Creatinine and Glomerular fi ltration rate.predicted panel (S/P/Bld)on 08-25-2020 Creatinine [Mass/Vol] 4.06 mg/dL 0.64-1.27 [facility] ECG 12 lead ECGon 08-25-2020 ECG 12 lead ECG [facility] [address] Electrocardiograph Report Signed Patient: Rashard Lyman MR#: [id number] : 1960 Acct:[id number] Age/Sex: 60 / M ADM Date: 08/18/20 Loc: Room: [address] [place] [address] Type: ADM IN Attending Dr: Gordon Ewing [...] 08/25/20 0719 Signed By: 08/25/20 0951 Normal [facility] Eosinophils Auto (Bld) [#/Vo l]on 08-25-2020 Eosinophils (Bld) [#/Vol] 0.0 10*3/uL 0.0-0.45 [facility] Eosinophils/100 WBC Auto (Bl d)on 08-25-2020 Eosinophils/100 WBC (Bld) 0.1 % [facility] Erythrocyte distribution wid th Auto (RBC) [Ratio]on 08-25-2020 Erythrocyte distribution width (RBC) [Ratio] 16.6 % 12.0-14.8 [facility] Estimated glomerular filtrat ion rate (GFR) non- Americanon 08-25-2020 GFR/1.73 sq M.predicted among non-blacks MDRD (S/P/Bld) [Vol rate/Area] 15 mL/Min [facility] Glucose Glucometer (BldC) [M ass/Vol]on 08-25-2020 Glucose [Mass/Vol] 122 mg/dL [facility] Comment on above: Random Glucose Refer ence Range is dependent on time and content of last meal. Glucose of more than 200 mg/dL in a nonstressed, ambulatory subject supports the diagnosis of Diabetes Mellitus. Glucose Poct Glucometerson 0 08-25-2020 Commemt1 Glu2: Cleaned Meter Normal [facility] Comment on above: Result Comment: PERF ORMED BY: [place] [address] PATHOLOGIST DRY CLIPPER TENDER JORDAN RODRIGUEZ M.D. Performed By: #### P P #### [address] Glucose [Mass/Vol] 122 mg/dL Normal [facility] Comment on above: Result Comment: [place] om Glucose Reference Range is dependent on time and content of last meal. Glucose of more than 200 mg/dL in a nonstressed, ambulatory subject supports the diagnosis of Diabetes Mellitus. Performed By: #### P P #### [address] Commemt1 Glu2: Cleaned Meter [facility] Comment on above: Result Comment: PERF ORMED BY: [place] [address] PATHOLOGIST DRY CLIPPER TENDER JORDAN RODRIGUEZ M.D. Performed By: #### V BG #### Point of Care testing , Glucose [Mass/Vol] 104 mg/dL Normal [facility] Comment on above: Result Comment: [place] om Glucose Reference Range is dependent on time and content of last meal. Glucose of more than 200 mg/dL in a nonstressed, ambulatory subject supports the diagnosis of Diabetes Mellitus. Performed By: #### V BG #### Point of Care testing , Glucose [Mass/Vol] 115 mg/dL Normal [facility] Comment on above: Result Comment: [place] om Glucose Reference Range is dependent on time and content of last meal. Glucose of more than 200 mg/dL in a nonstressed, ambulatory subject supports the diagnosis of Diabetes Mellitus. PERFORMED BY: [place] [address] PATHOLOGIST [employer]Y CLIPPER TENDER JORDAN RODRIGUEZ M.D. Performed By: #### V BG #### Point of Care testing , Hematocrit Auto (Bld) [Volum e fraction]on 08-25-2020 Hematocrit (Bld) [Volume fraction] 31.7 % 38.8-50.0 [facility] Laboratory - Hematology and Cell countson 08-25-2020 Nucleated RBC/100 WBC (Bld) [Ratio] 0.2 % 0-0.5 [facility] Lymphocytes Auto (Bld) [#/Vo l]on 08-25-2020 Lymphocytes (Bld) [#/Vol] 1.1 10*3/uL 1.00-4.8 [facility] Lymphocytes/100 WBC Auto (Bl d)on 08-25-2020 Lymphocytes/100 WBC (Bld) 8.9 % [facility] MCH Auto (RBC) [Entitic mass ]on 08-25-2020 MCH (RBC) [Entitic mass] 26.2 pg 27.5-35.2 [facility] MCHC Auto (RBC) [Mass/Vol]on 08-25-2020 MCHC (RBC) [Mass/Vol] 31.9 g/dL 32.5-35.6 [facility] MCV Auto (RBC) [Entitic vol] on 08-25-2020 MCV (RBC) [Entitic vol] 82.3 fL 83.5-101 [facility] Monocytes Auto (Bld) [#/Vol] on 08-25-2020 Monocytes (Bld) [#/Vol] 1.2 10*3/uL 0.0-0.8 [facility] Monocytes/100 WBC Auto (Bld) on 08-25-2020 Monocytes/100 WBC (Bld) 9.6 % [facility] Neutrophils Auto (Bld) [#/Vo l]on 08-25-2020 Neutrophils (Bld) [#/Vol] 10.2 10*3/uL 1.8-7.7 [facility] Neutrophils/100 WBC Auto (Bl d)on 08-25-2020 Neutrophils/100 WBC (Bld) 81.3 % [facility] No Panel Informationon 08-25 Bedside Glucose Comment Glu2: cleaned meter [facility] Estimated GFR () 18 mL/Min [facility] Comment on above: GFR estimated refere nce range: According to KDOQI guidelines, <60 ml/min/1.73m2 is sufficient to diagnose a patient with chronic kidney disease. Pharmacy Creatinine Clearance (Chem 31.84 [facility] Platelet Estimate Normal Normal [facility] Platelet Morphology Comment Normal Normal [facility] Phosphate [Mass/volume] in S miki or Plasmaon 08-25-2020 Phosphate [Mass/Vol] 5.3 mg/dL 2.5-4.6 [facility] Platelet mean volume Auto (B ld) [Entitic vol]on 08-25-2020 Platelet mean volume (Bld) [Entitic vol] 7.1 fL 6.6-10.1 [facility] Platelets Auto (Bld) [#/Vol] on 08-25-2020 Platelets (Bld) [#/Vol] 388 10*3/uL 150-450 [facility] RBC Auto (Bld) [#/Vol]on RBC (Bld) [#/Vol] 3.85 10*6/uL 3.90-5.60 [facility] RBC morphologyon 08-25-2020 RBC morphology finding Nom (Bld) N/A [facility] Renal Function Panelon 08-25 Albumin [Mass/Vol] 2.0 g/dL Low 3.2-5.5 [facility] Comment on above: Performed By: #### V BG #### Point of Care testing , Calcium [Mass/Vol] 8.7 mg/dL Normal 8.2-10.2 [facility] Comment on above: Performed By: #### V BG #### Point of Care testing , Chloride [Moles/Vol] 99 mmol/L Normal 95-114 [facility] Comment on above: Performed By: #### V BG #### Point of Care testing , CO2 [Moles/Vol] 26.2 mmol/L Normal 22.0-30.0 [facility] Comment on above: Performed By: #### V BG #### Point of Care testing , Creatinine [Mass/Vol] 4.06 mg/dL High 0.64-1.27 [facility] Comment on above: Performed By: #### V BG #### Point of Care testing , Creatinine Clr Calc Pharmacy 31.84 [facility] Comment on above: Result Comment: PERF ORMED BY: [facility] [place] [address] PATHOLOGIST DRY CLIPPER TENDER JORDAN RODRIGUEZ M.D. Performed By: #### V BG #### Point of Care testing , Estimated GFR ( Camilla 18 [facility] Comment on above: Result Comment: GFR estimated reference range: According to KDOQI guidelines, <60 ml/min/1.73m2 is sufficient to diagnose a patient with chronic kidney disease. Performed By: #### V BG #### Point of Care testing , Estimated GFR (Non- Am 15 [facility] Comment on above: Performed By: #### V BG #### Point of Care testing , Glucose [Mass/Vol] 113 mg/dL High 70-100 [facility] Comment on above: Result Comment: [place] Glucose Reference Range is dependent on time and content of last meal. Glucose of more than 200 mg/dL in a nonstressed, ambulatory subject supports the diagnosis of Diabetes Mellitus. ADA recommended reference range Performed By: #### V BG #### Point of Care testing , Phosphate [Mass/Vol] 5.3 mg/dL High 2.5-4.6 [facility] Comment on above: Performed By: #### V BG #### Point of Care testing , Potassium [Moles/Vol] 4.6 mmol/L Normal 3.5-5.1 [facility] Comment on above: Performed By: #### V BG #### Point of Care testing , Sodium [Moles/Vol] 135 mmol/L Low 136-146 [facility] Comment on above: Performed By: #### V BG #### Point of Care testing , Urea nitrogen [Mass/Vol] 75 mg/dL High 9-23 [facility] Comment on above: Performed By: #### V BG #### Point of Care testing , Scan and CBCon 08-25-2020 Anisocytosis Ql (Bld) Slight Normal [facility] Comment on above: Performed By: #### V BG #### Point of Care testing , Basophils (Bld) [#/Vol] 0.0 10*3/uL Normal 0.0-0.2 [facility] Comment on above: Performed By: #### V BG #### Point of Care testing , Basophils/100 WBC (Bld) 0.1 % Normal . [facility] Comment on above: Performed By: #### V BG #### Point of Care testing , Eosinophils (Bld) [#/Vol] 0.0 10*3/uL Normal 0.0-0.45 [facility] Comment on above: Performed By: #### V BG #### Point of Care testing , Eosinophils/100 WBC (Bld) 0.1 % Normal . [facility] Comment on above: Performed By: #### V BG #### Point of Care testing , Erythrocyte distribution width (RBC) [Ratio] 16.6 % High 12.0-14.8 [facility] Comment on above: Performed By: #### V BG #### Point of Care testing , Hematocrit (Bld) [Volume fraction] 31.7 % Low 38.8-50.0 [facility] Comment on above: Performed By: #### V BG #### Point of Care testing , Hemoglobin (Bld) [Mass/Vol] 10.1 g/dL Low 13.0-17.0 [facility] Comment on above: Performed By: #### V BG #### Point of Care testing , Lymphocytes (Bld) [#/Vol] 1.1 10*3/uL Normal 1.00-4.8 [facility] Comment on above: Performed By: #### V BG #### Point of Care testing , Lymphocytes/100 WBC (Bld) 8.9 % Normal . [facility] Comment on above: Performed By: #### V BG #### Point of Care testing , MCH (RBC) [Entitic mass] 26.2 pg Low 27.5-35.2 [facility] Comment on above: Performed By: #### V BG #### Point of Care testing , MCV (RBC) [Entitic vol] 82.3 fL Low 83.5-101 [facility] Comment on above: Performed By: #### V BG #### Point of Care testing , Mean Corpuscular HGB Conc 31.9 g/dL Low 32.5-35.6 [facility] Comment on above: Performed By: #### V BG #### Point of Care testing , Monocytes (Bld) [#/Vol] 1.2 10*3/uL High 0.0-0.8 [facility] Comment on above: Performed By: #### V BG #### Point of Care testing , Monocytes/100 WBC (Bld) 9.6 % Normal . [facility] Comment on above: Performed By: #### V BG #### Point of Care testing , Neutrophils (Bld) [#/Vol] 10.2 10*3/uL High 1.8-7.7 [facility] Comment on above: Performed By: #### V BG #### Point of Care testing , Neutrophils/100 WBC (Bld) 81.3 % Normal . [facility] Comment on above: Performed By: #### V BG #### Point of Care testing , Nucleated RBC/100 WBC (Bld) [Ratio] 0.2 % Normal 0-0.5 [facility] Comment on above: Performed By: #### V BG #### Point of Care testing , Platelet Estimate Normal Normal Normal [facility] Comment on above: Performed By: #### V BG #### Point of Care testing , Platelet mean volume (Bld) [Entitic vol] 7.1 fL Normal 6.6-10.1 [facility] Comment on above: Performed By: #### V BG #### Point of Care testing , Platelet Morphology Normal Normal Normal [facility] Comment on above: Result Comment: PERF ORMED BY: [facility] [address] [place] [address] PATHOLOGIST DRY CLIPPER TENDER JORDAN RODRIGUEZ M.D. Performed By: #### V BG #### Point of Care testing , Platelets (Bld) [#/Vol] 388 10*3/uL Normal 150-450 [facility] Comment on above: Performed By: #### V BG #### Point of Care testing , Polychromasia Slight Normal [facility] Comment on above: Performed By: #### V BG #### Point of Care testing , RBC (Bld) [#/Vol] 3.85 10*6/uL Low 3.90-5.60 [facility] Comment on above: Performed By: #### V BG #### Point of Care testing , WBC (Bld) [#/Vol] 12.6 10*3/uL High 4.5-11.0 [facility] Comment on above: Performed By: #### V BG #### Point of Care testing , Serum or plasma calcium joel urement (mass/volume)on 08-25-2020 Calcium [Mass/Vol] 8.7 mg/dL 8.2-10.2 [facility] Serum or plasma chloride faraz surement (moles/volume)on 08-25-2020 Chloride [Moles/Vol] 99 mmol/L 95-114 [facility] Serum or plasma glucose joel urement (mass/volume)on 08-25-2020 Glucose [Mass/Vol] 113 mg/dL 70-100 [facility] Comment on above: ADA recommended refe rence rangeRandom Glucose Reference Range is dependent on time and content of last meal. Glucose of more than 200 mg/dL in a nonstressed, ambulatory subject supports the diagnosis of Diabetes Mellitus. Serum or plasma potassium me asurement (moles/volume)on 08-25-2020 Potassium [Moles/Vol] 4.6 mmol/L 3.5-5.1 [facility] Serum or plasma sodium measu rement (moles/volume)on 08-25-2020 Sodium [Moles/Vol] 135 mmol/L 136-146 [facility] Serum or plasma total carbon dioxide measurement (moles/volume)on 08-25-2020 CO2 [Moles/Vol] 26.2 mmol/L 22.0-30.0 [facility] Serum or plasma urea nitroge n measurement (mass/volume)on 08-25-2020 Urea nitrogen [Mass/Vol] 75 mg/dL 01-19 [facility] Diff and CBCon 08-24-2020 Anisocytosis Ql (Bld) Slight Normal [facility] Comment on above: Performed By: #### C OVID-19 LIAT, SOFIANEG #### [facility] [address] Band form neutrophils/100 WBC (Bld) 1 % Normal 0-5 [facility] Comment on above: Performed By: #### C OVID-19 LIAT, SOFIANEG #### [place] [address] [place] Basophilic stippling LM Ql (Bld) Slight Normal [facility] Comment on above: Performed By: #### C OVID-19 LIAT, SOFIANEG #### [address] Erythrocyte distribution width (RBC) [Ratio] 16.6 % High 12.0-14.8 [facility] Comment on above: Performed By: #### C OVID-19 LIAT, SOFIANEG #### [address] Hematocrit (Bld) [Volume fraction] 30.0 % Low 38.8-50.0 [facility] Comment on above: Performed By: #### C OVID-19 LIAT, SOFIANEG #### [address] Hemoglobin (Bld) [Mass/Vol] 10.1 g/dL Low 13.0-17.0 [facility] Comment on above: Performed By: #### C OVID-19 LIAT, SOFIANEG #### [address] Lymphocytes/100 WBC (Bld) 6 % Low 18-42 [facility] Comment on above: Performed By: #### C OVID-19 LIAT, SOFIANEG #### [address] [place] [address] [place] MCH (RBC) [Entitic mass] 27.5 pg Normal 27.5-35.2 [facility] Comment on above: Performed By: #### C OVID-19 LIAT, SOFIANEG #### [facility] [address] [place] [address] MCV (RBC) [Entitic vol] 81.9 fL Low 83.5-101 [facility] Comment on above: Performed By: #### C OVID-19 LIAT, SOFIANEG #### [facility] [address] [place] [address] Mean Corpuscular HGB Conc 33.6 g/dL Normal 32.5-35.6 [facility] Comment on above: Performed By: #### C OVID-19 LIAT, SOFIANEG #### [facility] [address] [place] [address] Metamyelocytes 1 % High 0-0 [facility] Comment on above: Performed By: #### C OVID-19 LIAT, SOFIANEG #### [facility] [address] [place] [address] Monocytes/100 WBC (Bld) 4 % Normal 2-11 [facility] Comment on above: Performed By: #### C OVID-19 LIAT, SOFIANEG #### [facility] [address] [place] [address] Myelocytes 1 % High 0-0 [facility] Comment on above: Performed By: #### C OVID-19 LIAT, SOFIANEG #### [facility] [address] [place] [address] [place] Nucleated RBC/100 WBC (Bld) [Ratio] 0.0 % Normal 0-0.5 [facility] Comment on above: Result Comment: PERF ORMED BY: [place] [address] PATHOLOGIST DRY CLIPPER TENDER JORDAN RODRIGUEZ M.D. Performed By: #### C OVID-19 LIAT, SOFIANEG #### [facility] [address] [place] [address] Platelet Estimate Normal Normal Normal [facility] Comment on above: Performed By: #### C OVID-19 LIAT, SOFIANEG #### [address] Platelet mean volume (Bld) [Entitic vol] 7.0 fL Normal 6.6-10.1 [facility] Comment on above: Performed By: #### C OVID-19 LIAT, SOFIANEG #### [address] Platelet Morphology Normal Normal Normal [facility] Comment on above: Result Comment: PERF ORMED BY: [place] [address] PATHOLOGIST DRY CLIPPER TENDER JORDAN RODRIGUEZ M.D. Performed By: #### C OVID-19 LIAT, SOFIANEG #### [address] Platelets (Bld) [#/Vol] 359 10*3/uL Normal 150-450 [facility] Comment on above: Performed By: #### C OVID-19 LIAT, SOFIANEG #### [address] Polychromasia Slight Normal [facility] Comment on above: Performed By: #### C OVID-19 LIAT, SOFIANEG #### [address] RBC (Bld) [#/Vol] 3.66 10*6/uL Low 3.90-5.60 [facility] Comment on above: Performed By: #### C OVID-19 LIAT, SOFIANEG #### [facility] [address] [place] [address] [place] Rouleaux Slight Normal [facility] Comment on above: Performed By: #### C OVID-19 LIAT, SOFIANEG #### [facility] [address] [place] [address] Segmented neutrophils/100 WBC (Bld) 87 % High 50-70 [facility] Comment on above: Performed By: #### C OVID-19 LIAT, SOFIANEG #### [facility] [address] WBC (Bld) [#/Vol] 11.2 10*3/uL High 4.5-11.0 [facility] Comment on above: Performed By: #### C OVID-19 LIAT, SOFIANEG #### [facility] [address] ECG 12 lead ECGon 08-24-2020 ECG 12 lead ECG [facility] Main [place] [address] [place] [address] Electrocardiograph Report Signed Patient: Rashard Lyman MR#: [id number] : 1960 Acct:[id number] Age/Sex: 60 / M ADM Date: 08/18/20 Loc: Room: [address] [place] [address] Type: ADM IN Attending Dr: Gordon Ewing [...] MD 08/24/20 0743 Signed By: 08/24/20 1049 [facility] Erythrocyte basophilic stipp ling detectionon 08-24-2020 Basophilic stippling LM Ql (Bld) Slight [facility] Glucose Poct Glucometerson 0 08-24-2020 Glucose [Mass/Vol] 129 mg/dL Normal [facility] Comment on above: Result Comment: [place] om Glucose Reference Range is dependent on time and content of last meal. Glucose of more than 200 mg/dL in a nonstressed, ambulatory subject supports the diagnosis of Diabetes Mellitus. PERFORMED BY: [address] [place] [address] PATHOLOGIST DRY CLIPPER TENDER JORDAN RODRIGUEZ M.D. Performed By: #### V BG #### Point of Care testing , Commemt1 Glu2: Cleaned Meter Normal [facility] Comment on above: Result Comment: PERF ORMED BY: [facility] [address] [place] [address] PATHOLOGIST DRY CLIPPER TENDER JORDAN RODRIGUEZ M.D. Performed By: #### V BG #### Point of Care testing , Glucose [Mass/Vol] 108 mg/dL Normal [facility] Comment on above: Result Comment: [place] Glucose Reference Range is dependent on time and content of last meal. Glucose of more than 200 mg/dL in a nonstressed, ambulatory subject supports the diagnosis of Diabetes Mellitus. Performed By: #### V BG #### Point of Care testing , Glucose [Mass/Vol] 60 mg/dL Off scale low [facility] Comment on above: Result Comment: [place] om Glucose Reference Range is dependent on time and content of last meal. Glucose of more than 200 mg/dL in a nonstressed, ambulatory subject supports the diagnosis of Diabetes Mellitus. PERFORMED BY: [address] [place] [address] PATHOLOGIST DRY CLIPPER TENDER JORDAN RODRIGUEZ M.D. Performed By: #### V BG #### Point of Care testing , Glucose [Mass/Vol] 130 mg/dL Normal [facility] Comment on above: Result Comment: [place] om Glucose Reference Range is dependent on time and content of last meal. Glucose of more than 200 mg/dL in a nonstressed, ambulatory subject supports the diagnosis of Diabetes Mellitus. PERFORMED BY: [address] [place] [id number] PATHOLOGIST DRY CLIPPER TENDER JORDAN RODRIGUEZ M.D. Performed By: #### V BG #### Point of Care testing , Glucose [Mass/Vol] 72 mg/dL Normal [facility] Comment on above: Result Comment: [place] om Glucose Reference Range is dependent on time and content of last meal. Glucose of more than 200 mg/dL in a nonstressed, ambulatory subject supports the diagnosis of Diabetes Mellitus. PERFORMED BY: [place] [address] PATHOLOGIST DRY CLIPPER TENDER JORDAN RODRIGUEZ M.D. Performed By: #### C OVID-19 LIAT SOFIANEG #### [address] Glucose [Mass/Vol] 96 mg/dL Normal [facility] Comment on above: Result Comment: [place] Glucose Reference Range is dependent on time and content of last meal. Glucose of more than 200 mg/dL in a nonstressed, ambulatory subject supports the diagnosis of Diabetes Mellitus. PERFORMED BY: [place] [address] PATHOLOGIST DRY CLIPPER TENDER JORDAN RODRIGUEZ M.D. Performed By: #### C OVID-19 LIAT SOFIANEG #### [address] Laboratory - Hematology and Cell countson 08-24-2020 Band form neutrophils/100 WBC (Bld) 1 % 0-5 [facility] Lymphocytes/100 WBC Auto (Bl d)on 08-24-2020 Lymphocytes/100 WBC (Bld) 6 % 18-42 [facility] Metamyelocytes/100 WBC Manua l cnt (Bld)on 08-24-2020 Metamyelocytes/100 WBC (Bld) 1 % 0-0 [facility] Monocytes/100 WBC Manual cnt (Bld)on 08-24-2020 Monocytes/100 WBC (Bld) 4 % 2-11 [facility] Myelocytes/100 WBC Manual cn t (Bld)on 08-24-2020 Myelocytes/100 WBC (Bld) 1 % 0-0 [facility] No Panel Informationon 08-24 Deepak Rasheed [facility] Renal Function Panelon 08-24 Albumin [Mass/Vol] 1.9 g/dL Low 3.2-5.5 [facility] Comment on above: Performed By: #### C OVID-19 LIAT, SOFIANEG #### [facility] [address] Calcium [Mass/Vol] 8.8 mg/dL Normal 8.2-10.2 [facility] Comment on above: Performed By: #### C OVID-19 LIAT, SOFIANEG #### [facility] [address] [place] [address] [place] Chloride [Moles/Vol] 99 mmol/L Normal 95-114 [facility] Comment on above: Performed By: #### C OVID-19 LIAT, SOFIANEG #### [facility] [address] CO2 [Moles/Vol] 24.4 mmol/L Normal 22.0-30.0 [facility] Comment on above: Performed By: #### C OVID-19 LIAT, SOFIANEG #### [facility] [address] [place] [address] Creatinine [Mass/Vol] 4.21 mg/dL High 0.64-1.27 [facility] Comment on above: Performed By: #### C OVID-19 LIAT, SOFIANEG #### [facility] [address] [place] [address] [place] Creatinine Clr Calc Pharmacy 30.71 Normal [facility] Comment on above: Result Comment: PERF ORMED BY: [place] [address] PATHOLOGIST DRY CLIPPER TENDER JORDAN RODRIGUEZ M.D. Performed By: #### C OVID-19 LIAT, SOFIANEG #### [facility] [address] [place] [address] Estimated GFR ( Camilla 18 Normal [facility] Comment on above: Result Comment: GFR estimated reference range: According to KDOQI guidelines, <60 ml/min/1.73m2 is sufficient to diagnose a patient with chronic kidney disease. Performed By: #### C OVID-19 LIAT, SOFIANEG #### [facility] [address] [place] [address] [place] Estimated GFR (Non- Am 15 Normal [facility] Comment on above: Performed By: #### C OVID-19 LIAT SOFIANEG #### [facility] [address] [place] [address] [place] Glucose [Mass/Vol] 79 mg/dL Normal 70-100 [facility] Comment on above: Result Comment: [facility] Glucose Reference Range is dependent on time and content of last meal. Glucose of more than 200 mg/dL in a nonstressed, ambulatory subject supports the diagnosis of Diabetes Mellitus. ADA recommended reference range Performed By: #### C OVID-19 LIAT SOFIANEG #### [facility] [address] [place] [address] Phosphate [Mass/Vol] 5.9 mg/dL High 2.5-4.6 [facility] Comment on above: Performed By: #### C OVID-19 LIAT SOFIANEG #### [facility] [address] [place] [address] [place] Potassium [Moles/Vol] 4.2 mmol/L Normal 3.5-5.1 [facility] Comment on above: Performed By: #### C OVID-19 LIAT SOFIANEG #### [place] [address] [place] Sodium [Moles/Vol] 134 mmol/L Low 136-146 [facility] Comment on above: Performed By: #### C OVID-19 LIAT SOFIANEG #### [facility] [address] [place] [address] [place] Urea nitrogen [Mass/Vol] 69 mg/dL High 9-23 [facility] Comment on above: Performed By: #### C OVID-19 LIAT SOFIANEG #### [facility] [address] [place] [id number] [place] Segmented neutrophils/100 WB C Manual cnt (Bld)on 08-24-2020 Segmented neutrophils/100 WBC (Bld) 87 % 50-70 [facility] KILLIAN Antinuclear Antibodieson 08-23-2020 Antinuclear Abs, IFA Negative Normal . [facility] Comment on above: Result Comment: Nega tive <1:80 Borderline 1:80 Positive >1:80 Performed at: [facility] [address] [id number] Stone Rougher: Mata Brian PhD, Phone: [phone] PERFORMED BY: [place] [address] PATHOLOGIST DRY CLIPPER TENDER JORDAN RODRIGUEZ M.D. Performed By: #### P P #### [address] Complete Blood Count Auto Di ffon 08-23-2020 Basophils (Bld) [#/Vol] 0.0 10*3/uL Normal 0.0-0.2 [facility] Comment on above: Result Comment: PERF ORMED BY: [place] [address] PATHOLOGIST DRY CLIPPER TENDER JORDAN RODRIGUEZ M.D. Performed By: #### C OVID-19 ILAT, SOFIANEG #### [address] Basophils/100 WBC (Bld) 0.3 % Normal . [facility] Comment on above: Performed By: #### C OVID-19 LIAT, SOFIANEG #### [place] [address] [place] Eosinophils (Bld) [#/Vol] 0.0 10*3/uL Normal 0.0-0.45 [facility] Comment on above: Performed By: #### C OVID-19 LIAT, SOFIANEG #### [place] [address] [place] Eosinophils/100 WBC (Bld) 0.1 % Normal . [facility] Comment on above: Performed By: #### C OVID-19 LIAT, SOFIANEG #### [address] Erythrocyte distribution width (RBC) [Ratio] 16.3 % High 12.0-14.8 [facility] Comment on above: Performed By: #### C OVID-19 LIAT, SOFIANEG #### [address] Hematocrit (Bld) [Volume fraction] 29.4 % Low 38.8-50.0 [facility] Comment on above: Performed By: #### C OVID-19 LIAT, SOFIANEG #### [address] Hemoglobin (Bld) [Mass/Vol] 9.4 g/dL Low 13.0-17.0 [facility] Comment on above: Performed By: #### C OVID-19 LIAT, SOFIANEG #### [address] Lymphocytes (Bld) [#/Vol] 0.5 10*3/uL Low 1.00-4.8 [facility] Comment on above: Performed By: #### C OVID-19 LIAT, SOFIANEG #### [address] Lymphocytes/100 WBC (Bld) 4.1 % Normal . [facility] Comment on above: Performed By: #### C OVID-19 LIAT, SOFIANEG #### [address] MCH (RBC) [Entitic mass] 26.2 pg Low 27.5-35.2 [facility] Comment on above: Performed By: #### C OVID-19 LIAT, SOFIANEG #### [address] MCV (RBC) [Entitic vol] 82.4 fL Low 83.5-101 [facility] Comment on above: Performed By: #### C OVID-19 LIAT, SOFIANEG #### [address] Mean Corpuscular HGB Conc 31.8 g/dL Low 32.5-35.6 [facility] Comment on above: Performed By: #### C OVID-19 LIAT, SOFIANEG #### [facility] [address] [place] [address] [place] Monocytes (Bld) [#/Vol] 0.6 10*3/uL Normal 0.0-0.8 [facility] Comment on above: Performed By: #### C OVID-19 LIAT, SOFIANEG #### [facility] [address] Monocytes/100 WBC (Bld) 4.9 % Normal . [facility] Comment on above: Performed By: #### C OVID-19 LIAT, SOFIANEG #### [facility] [address] [place] [address] Neutrophils (Bld) [#/Vol] 11.2 10*3/uL High 1.8-7.7 [facility] Comment on above: Performed By: #### C OVID-19 LIAT, SOFIANEG #### [place] [address] [place] Neutrophils/100 WBC (Bld) 90.6 % Normal . [facility] Comment on above: Performed By: #### C OVID-19 LIAT, SOFIANEG #### [facility] [address] [place] [address] [place] Nucleated RBC/100 WBC (Bld) [Ratio] 0.2 % Normal 0-0.5 [facility] Comment on above: Performed By: #### C OVID-19 LIAT, SOFIANEG #### [facility] [address] [place] [address] [place] Platelet mean volume (Bld) [Entitic vol] 8.0 fL Normal 6.6-10.1 [facility] Comment on above: Performed By: #### C OVID-19 LIAT, SOFIANEG #### [facility] [address] [place] [address] [place] Platelets (Bld) [#/Vol] 303 10*3/uL Normal 150-450 [facility] Comment on above: Performed By: #### C OVID-19 LIAT, SOFIANEG #### [facility] [address] [place] [address] [place] RBC (Bld) [#/Vol] 3.57 10*6/uL Low 3.90-5.60 [facility] Comment on above: Performed By: #### C OVID-19 BALJEET JOSUEEG #### [facility] [address] WBC (Bld) [#/Vol] 12.4 10*3/uL High 4.5-11.0 [facility] Comment on above: Performed By: #### C OVID-19 LIAT SOFIANEG #### [facility] [address] ECG 12 lead ECGon 08-23-2020 ECG 12 lead ECG [facility] Main [place] [address] [place] [address] Electrocardiograph Report Signed Patient: Rashard Lyman MR#: [id number] : 1960 Acct:[id number] Age/Sex: 60 / M ADM Date: 08/18/20 Loc: Room: [address] [place] [address] Type: ADM IN Attending Dr: Gordon Ewing [...] 08/23/20 0730 Signed By: 08/23/20 1047 Normal [facility] Glucose Poct Glucometerson 0 08-23-2020 Glucose [Mass/Vol] 160 mg/dL Normal [facility] Comment on above: Result Comment: [place] [facility] Glucose Reference Range is dependent on time and content of last meal. Glucose of more than 200 mg/dL in a nonstressed, ambulatory subject supports the diagnosis of Diabetes Mellitus. PERFORMED BY: [place] [address] PATHOLOGIST DRY CLIPPER TENDER JORDAN RODRIGUEZ M.D. Performed By: #### C OVID-19 LIAT, SOFIANEG #### [facility] [address] [place] [address] [place] Glucose [Mass/Vol] 212 mg/dL Normal [facility] Comment on above: Result Comment: [place] [facility] Glucose Reference Range is dependent on time and content of last meal. Glucose of more than 200 mg/dL in a nonstressed, ambulatory subject supports the diagnosis of Diabetes Mellitus. PERFORMED BY: [address] [place] [address] PATHOLOGIST DRY CLIPPER TENDER JORDAN RODRIGUEZ M.D. Performed By: #### C OVID-19 LIAT, SOFIANEG #### [facility] [address] [place], [place] [id number] [place] Glucose [Mass/Vol] 159 mg/dL Normal [facility] Comment on above: Result Comment: [place] [facility] Glucose Reference Range is dependent on time and content of last meal. Glucose of more than 200 mg/dL in a nonstressed, ambulatory subject supports the diagnosis of Diabetes Mellitus. PERFORMED BY: [place] [address] PATHOLOGIST DRY CLIPPER TENDER JORDAN RODRIGUEZ M.D. Performed By: #### C OVID-19 LIAT, SOFIANEG #### [facility] [address] [place], [place] [id number] [place] Glucose [Mass/Vol] 73 mg/dL Normal [facility] Comment on above: Result Comment: [place] [facility] Glucose Reference Range is dependent on time and content of last meal. Glucose of more than 200 mg/dL in a nonstressed, ambulatory subject supports the diagnosis of Diabetes Mellitus. PERFORMED BY: [place] [address] PATHOLOGIST DRY CLIPPER TENDER JORDAN RODRIGUEZ M.D. Performed By: #### C OVID-19 LIAT, SOFIANEG #### [facility] [address] [place] [address] Commemt1 Glu2: Cleaned Meter [facility] Comment on above: Result Comment: PERF ORMED BY: [place] [address] PATHOLOGIST DRY CLIPPER TENDER JORDAN RODRIGUEZ M.D. Performed By: #### C OVID-19 LIAT, SOFIANEG #### [address] Glucose [Mass/Vol] 88 mg/dL Normal [facility] Comment on above: Result Comment: [place] om Glucose Reference Range is dependent on time and content of last meal. Glucose of more than 200 mg/dL in a nonstressed, ambulatory subject supports the diagnosis of Diabetes Mellitus. Performed By: #### C OVID-19 LIAT, SOFIANEG #### [address] Commemt1 Glu2: Cleaned Meter [facility] Comment on above: Result Comment: PERF ORMED BY: [place] [address] PATHOLOGIST DRY CLIPPER TENDER JORDAN RODRIGUEZ M.D. Performed By: #### C OVID-19 LIAT, SOFIANEG #### [facility] [address] [place] [address] Glucose [Mass/Vol] 69 mg/dL Normal [facility] Comment on above: Result Comment: [place] om Glucose Reference Range is dependent on time and content of last meal. Glucose of more than 200 mg/dL in a nonstressed, ambulatory subject supports the diagnosis of Diabetes Mellitus. Performed By: #### C OVID-19 LIAT, SOFIANEG #### [facility] [address] [place] [address] Commemt1 Normal [facility] Comment on above: Result Comment: Glu2 : Will Repeat Test Performed By: #### C OVID-19 LIAT, SOFIANEG #### [facility] [address] Commemt2 WILL NOTIFY /JOANNE Cunningham [facility] Comment on above: Performed By: #### C OVID-19 LIAT, SOFIANEG #### [facility] [address] Commemt3 Cleaned Meter Normal [facility] Comment on above: Result Comment: PERF ORMED BY: [facility] [address] [place] [address] PATHOLOGIST DRY CLIPPER TENDER JORDAN RODRIGUEZ M.D. Performed By: #### C OVID-19 LIAT, SOFIANEG #### [address] Glucose [Mass/Vol] 59 mg/dL Off scale low [facility] Comment on above: Result Comment: [facility] Glucose Reference Range is dependent on time and content of last meal. Glucose of more than 200 mg/dL in a nonstressed, ambulatory subject supports the diagnosis of Diabetes Mellitus. Performed By: #### C OVID-19 LIAT, SOFIANEG #### [address] No Panel Informationon 08-23 Bedside Glucose #2 Comment Will notify /joanne [facility] Bedside Glucose #3 Comment Cleaned meter [facility] Renal Function Panelon 08-23 Albumin [Mass/Vol] 1.9 g/dL Low 3.2-5.5 [facility] Comment on above: Performed By: #### C OVID-19 LIAT, SOFIANEG #### [facility] [address] Calcium [Mass/Vol] 8.7 mg/dL Normal 8.2-10.2 [facility] Comment on above: Performed By: #### C OVID-19 LIAT, SOFIANEG #### [facility] [address] Chloride [Moles/Vol] 95 mmol/L Normal 95-114 [facility] Comment on above: Performed By: #### C OVID-19 LIAT, SOFIANEG #### [facility] [address] CO2 [Moles/Vol] 22.0 mmol/L Normal 22.0-30.0 [facility] Comment on above: Performed By: #### C OVID-19 LIAT, SOFIANEG #### [facility] [address] [place] [address] [place] Creatinine [Mass/Vol] 4.79 mg/dL High 0.64-1.27 [facility] Comment on above: Performed By: #### C OVID-19 LIAT, SOFIANEG #### [facility] [address] [place] [address] [place] Creatinine Clr Calc Pharmacy 27.33 [facility] Comment on above: Result Comment: PERF ORMED BY: [place] [address] PATHOLOGIST DRY CLIPPER TENDER JORDAN RODRIGUEZ M.D. Performed By: #### C OVID-19 LIAT, SOFIANEG #### [address] Estimated GFR ( Camilla 15 [facility] Comment on above: Result Comment: GFR estimated reference range: According to KDOQI guidelines, <60 ml/min/1.73m2 is sufficient to diagnose a patient with chronic kidney disease. Performed By: #### C OVID-19 LIAT, SOFIANEG #### [facility] [address] [place] [address] [place] Estimated GFR (Non- Am 13 [facility] Comment on above: Performed By: #### C OVID-19 LIAT, SOFIANEG #### [facility] [address] [place] [address] [place] Glucose [Mass/Vol] 78 mg/dL Normal 70-100 [facility] Comment on above: Result Comment: [place] Glucose Reference Range is dependent on time and content of last meal. Glucose of more than 200 mg/dL in a nonstressed, ambulatory subject supports the diagnosis of Diabetes Mellitus. ADA recommended reference range Performed By: #### C OVID-19 LIAT, SOFIANEG #### [facility] [address] Phosphate [Mass/Vol] 7.5 mg/dL High 2.5-4.6 [facility] Comment on above: Performed By: #### C OVID-19 LIAT, SOFIANEG #### [facility] [address] Potassium [Moles/Vol] 4.4 mmol/L Normal 3.5-5.1 [facility] Comment on above: Performed By: #### C OVID-19 LIAT, SOFIANEG #### [facility] [address] Sodium [Moles/Vol] 131 mmol/L Low 136-146 [facility] Comment on above: Performed By: #### C OVID-19 LIAT, SOFIANEG #### [facility] [address] Urea nitrogen [Mass/Vol] 63 mg/dL High 9-23 [facility] Comment on above: Performed By: #### C OVID-19 LIAT, SOFIANEG #### [facility] [address] Rheumatoid Factoron 08-24-19 21 Rheumatoid Factor 20.6 High 0.0-13.9 [facility] Comment on above: Result Comment: [facility]f ormed at: [facility] [address] [place], [place] [id number] Stone Rougher: Mata Brian PhD, Phone: [phone] Performed By: #### P P #### [facility] [address] Serum nuclear antibody titer on 08-23-2020 Nuclear Ab (S) [Titer] Negative [facility] Comment on above: Negative <1:80 Borde rline 1:80 Positive >1:80Performed at: [facility] [place], [place] [id number] Director: Mata Brian PhD, Phone: [phone] Serum or plasma rheumatoid f actor measurement (units/volume)on 08-23-2020 Rheumatoid factor Qn 20.6 [IU]/mL [facility] Comment on above: Performed at: [address] [id number] Director: Mata Brian PhD, Phone: [phone] Basic Metabolic Panelon 07-29 Calcium [Mass/Vol] 8.6 mg/dL Normal 8.2-10.2 [facility] Comment on above: Performed By: #### C MP, CBC, MG, TROP, BNP #### [address] Chloride [Moles/Vol] 94 mmol/L Low 95-114 [facility] Comment on above: Performed By: #### C MP, CBC, MG, TROP, BNP #### [address] CO2 [Moles/Vol] 21.4 mmol/L Low 22.0-30.0 [facility] Comment on above: Performed By: #### C MP, CBC, MG, TROP, BNP #### [address] Creatinine [Mass/Vol] 4.84 mg/dL High 0.64-1.27 [facility] Comment on above: Performed By: #### C MP, CBC, MG, TROP, BNP #### [address] Creatinine Clr Calc Pharmacy 27.02 [facility] Comment on above: Result Comment: PERF ORMED BY: [place] [address] PATHOLOGIST DRY CLIPPER TENDER JORDAN RODRIGUEZ M.D. Performed By: #### C MP, CBC, MG, TROP, BNP #### [address] Estimated GFR ( Camilla 15 [facility] Comment on above: Result Comment: GFR estimated reference range: According to KDOQI guidelines, <60 ml/min/1.73m2 is sufficient to diagnose a patient with chronic kidney disease. Performed By: #### C MP, CBC, MG, TROP, BNP #### [address] Estimated GFR (Non- Am 12 Normal [facility] Comment on above: Performed By: #### C MP, CBC, MG, TROP, BNP #### [facility] [address] Glucose [Mass/Vol] 154 mg/dL High 70-100 [facility] Comment on above: Result Comment: [place] Glucose Reference Range is dependent on time and content of last meal. Glucose of more than 200 mg/dL in a nonstressed, ambulatory subject supports the diagnosis of Diabetes Mellitus. ADA recommended reference range Performed By: #### C MP, CBC, MG, TROP, BNP #### [address] Potassium [Moles/Vol] 4.9 mmol/L Normal 3.5-5.1 [facility] Comment on above: Performed By: #### C MP, CBC, MG, TROP, BNP #### [address] Sodium [Moles/Vol] 129 mmol/L Low 136-146 [facility] Comment on above: Performed By: #### C MP, CBC, MG, TROP, BNP #### [address] Urea nitrogen [Mass/Vol] 54 mg/dL High 9-23 [facility] Comment on above: Performed By: #### C MP, CBC, MG, TROP, BNP #### [address] biopsyon 08-22-2020 Transferrin [Mass/Vol] 104 mg/dL 180-380 [facility] Complete Blood Count Auto Di ffon 08-22-2020 Basophils (Bld) [#/Vol] 0.0 10*3/uL Normal 0.0-0.2 [facility] Comment on above: Result Comment: PERF ORMED BY: [place] [address] PATHOLOGIST DRY CLIPPER TENDER JORDAN RODRIGUEZ M.D. Performed By: #### C MP, CBC, MG, TROP, BNP #### [address] Basophils/100 WBC (Bld) 0.2 % Normal . [facility] Comment on above: Performed By: #### C MP, CBC, MG, TROP, BNP #### [address] Eosinophils (Bld) [#/Vol] 0.0 10*3/uL Normal 0.0-0.45 [facility] Comment on above: Performed By: #### C MP, CBC, MG, TROP, BNP #### [address] Eosinophils/100 WBC (Bld) 0.1 % Normal . [facility] Comment on above: Performed By: #### C MP, CBC, MG, TROP, BNP #### [address] Erythrocyte distribution width (RBC) [Ratio] 16.4 % High 12.0-14.8 [facility] Comment on above: Performed By: #### C MP, CBC, MG, TROP, BNP #### [address] Hematocrit (Bld) [Volume fraction] 30.4 % Low 38.8-50.0 [facility] Comment on above: Performed By: #### C MP, CBC, MG, TROP, BNP #### [address] Hemoglobin (Bld) [Mass/Vol] 9.9 g/dL Low 13.0-17.0 [facility] Comment on above: Performed By: #### C MP, CBC, MG, TROP, BNP #### [address] Lymphocytes (Bld) [#/Vol] 0.6 10*3/uL Low 1.00-4.8 [facility] Comment on above: Performed By: #### C MP, CBC, MG, TROP, BNP #### [address] Lymphocytes/100 WBC (Bld) 5.6 % Normal . [facility] Comment on above: Performed By: #### C MP, CBC, MG, TROP, BNP #### [address] MCH (RBC) [Entitic mass] 27.1 pg Low 27.5-35.2 [facility] Comment on above: Performed By: #### C MP, CBC, MG, TROP, BNP #### [address] MCV (RBC) [Entitic vol] 83.4 fL Low 83.5-101 [facility] Comment on above: Performed By: #### C MP, CBC, MG, TROP, BNP #### [address] Mean Corpuscular HGB Conc 32.5 g/dL Normal 32.5-35.6 [facility] Comment on above: Performed By: #### C MP, CBC, MG, TROP, BNP #### [address] Monocytes (Bld) [#/Vol] 0.8 10*3/uL Normal 0.0-0.8 [facility] Comment on above: Performed By: #### C MP, CBC, MG, TROP, BNP #### [address] Monocytes/100 WBC (Bld) 7.7 % Normal . [facility] Comment on above: Performed By: #### C MP, CBC, MG, TROP, BNP #### [address] Neutrophils (Bld) [#/Vol] 9.5 10*3/uL High 1.8-7.7 [facility] Comment on above: Performed By: #### C MP, CBC, MG, TROP, BNP #### [address] Neutrophils/100 WBC (Bld) 86.4 % Normal . [facility] Comment on above: Performed By: #### C MP, CBC, MG, TROP, BNP #### [place] [address] [place] Nucleated RBC/100 WBC (Bld) [Ratio] 0.0 % Normal 0-0.5 [facility] Comment on above: Performed By: #### C MP, CBC, MG, TROP, BNP #### [address] Platelet mean volume (Bld) [Entitic vol] 7.8 fL Normal 6.6-10.1 [facility] Comment on above: Performed By: #### C MP, CBC, MG, TROP, BNP #### [address] Platelets (Bld) [#/Vol] 227 10*3/uL Normal 150-450 [facility] Comment on above: Performed By: #### C MP, CBC, MG, TROP, BNP #### [place] [address] [place] RBC (Bld) [#/Vol] 3.64 10*6/uL Low 3.90-5.60 [facility] Comment on above: Performed By: #### C MP, CBC, MG, TROP, BNP #### [address] WBC (Bld) [#/Vol] 11.0 10*3/uL Normal 4.5-11.0 [facility] Comment on above: Performed By: #### C MP, CBC, MG, TROP, BNP #### [address] ECG 12 lead ECGon 08-22-2020 ECG 12 lead ECG [facility] [place] [address] [place] [address] Electrocardiograph Report Signed Patient: Rashard Lyman MR#: [id number] : 1960 Acct:[id number] Age/Sex: 60 / M ADM Date: 08/18/20 Loc: 4P Room: [address] [place] [address] Type: ADM IN Attending Dr: Gordon Ewing [...] 08/22/20 1221 Signed By: 08/23/20 1047 Normal [facility] ECG 12 lead ECG [facility] [place] [address] Electrocardiograph Report Signed Patient: Rashard Lyman MR#: [id number] : 1960 Acct:[id number] Age/Sex: 60 / M ADM Date: 08/18/20 Loc: Room: [address] [place] [address] Type: ADM IN Attending Dr: Gordon Ewing [...] MD 08/22/20 0751 Signed By: 08/22/20 1201 Normal [facility] echo transthoracicon [facility] echo transthoracic [facility] [place] [address] Echocardiogram Signed Patient: Rashard Lyman MR#: [id number] : 1960 Acct:[id number] Age/Sex: 60 / M ADM Date: 08/18/20 Loc: Room: [address] [place] [address] Type: ADM IN Attending Dr: Gordon Ewing MD Ordering Provider: Gautam Bazan MD Date of Service: 08/22/20 [facility] echo transthoracic: Pericarditis Copies to: Gautam Bazan [...] 08/22/20 1016 Signed By: 08/22/20 1138 Normal [facility] FE PROon 08-22-2020 % Iron Saturation 11.0 % Low 20-50 [facility] Comment on above: Performed By: #### C MP, CBC, MG, TROP, BNP #### [address] Ferritin [Mass/Vol] 334.8 ng/mL Normal 23.9-336.2 [facility] Comment on above: Result Comment: PERF ORMED BY: [place] [address] PATHOLOGIST DRY CLIPPER TENDER JORDAN RODRIGUEZ M.D. Performed By: #### C MP, CBC, MG, TROP, BNP #### [facility] [address] Iron [Mass/Vol] 17 ug/dL Low 40-160 [facility] Comment on above: Performed By: #### C MP, CBC, MG, TROP, BNP #### [facility] [address] Total Iron Binding Capacity 146 ug/dL Low 255-450 [facility] Comment on above: Performed By: #### C MP, CBC, MG, TROP, BNP #### [facility] [address] [place] [address] [place] Transferrin [Mass/Vol] 104 mg/dL Low 180-380 [facility] Comment on above: Performed By: #### C MP, CBC, MG, TROP, BNP #### [facility] [address] [place] [address] [place] Ferritin [Mass/volume] in Se rum or Plasmaon 08-22-2020 Ferritin [Mass/Vol] 334.8 ng/mL 23.9-336.2 [facility] Glucose Poct Glucometerson 0 08-22-2020 Commemt1 Glu2: Cleaned Meter Normal [facility] Comment on above: Result Comment: PERF ORMED BY: [place] [address] PATHOLOGIST DRY CLIPPER TENDER JORDAN RODRIGUEZ M.D. Performed By: #### C OVID-19 LIAT SOFIANEG #### [address] Glucose [Mass/Vol] 81 mg/dL Normal [facility] Comment on above: Result Comment: [place] Glucose Reference Range is dependent on time and content of last meal. Glucose of more than 200 mg/dL in a nonstressed, ambulatory subject supports the diagnosis of Diabetes Mellitus. Performed By: #### C OVID-19 LIAT, SOFIANEG #### [facility] [address] [place] [address] [place] Glucose [Mass/Vol] 106 mg/dL Normal [facility] Comment on above: Result Comment: [place] Glucose Reference Range is dependent on time and content of last meal. Glucose of more than 200 mg/dL in a nonstressed, ambulatory subject supports the diagnosis of Diabetes Mellitus. PERFORMED BY: [place] [address] PATHOLOGIST DRY CLIPPER TENDER JORDAN RODRIGUEZ M.D. Performed By: #### C OVID-19 LIAT, SOFIANEG #### [address] [place] [address] [place] Glucose [Mass/Vol] 158 mg/dL Normal [facility] Comment on above: Result Comment: [place] om Glucose Reference Range is dependent on time and content of last meal. Glucose of more than 200 mg/dL in a nonstressed, ambulatory subject supports the diagnosis of Diabetes Mellitus. PERFORMED BY: [place] [address] PATHOLOGIST DRY CLIPPER TENDER JORDAN RODRIGUEZ M.D. Performed By: #### C OVID-19 LIAT, SOFIANEG #### [address] Glucose [Mass/Vol] 138 mg/dL Normal [facility] Comment on above: Result Comment: [place] om Glucose Reference Range is dependent on time and content of last meal. Glucose of more than 200 mg/dL in a nonstressed, ambulatory subject supports the diagnosis of Diabetes Mellitus. PERFORMED BY: [place] [address] PATHOLOGIST DRY CLIPPER TENDER JORDAN RODRIGUEZ M.D. Performed By: #### C MP, CBC, MG, TROP, BNP #### [address] Glucose [Mass/Vol] 177 mg/dL Normal [facility] Comment on above: Result Comment: [place] om Glucose Reference Range is dependent on time and content of last meal. Glucose of more than 200 mg/dL in a nonstressed, ambulatory subject supports the diagnosis of Diabetes Mellitus. PERFORMED BY: [place] [address] PATHOLOGIST DRY CLIPPER TENDER JORDAN RODRIGUEZ M.D. Performed By: #### C MP, CBC, MG, TROP, BNP #### [place] [address] [place] Iron [Mass/volume] in Serum or Plasmaon 08-22-2020 Iron [Mass/Vol] 17 ug/dL 40-160 [facility] Iron binding capacity [Mass/ volume] in Serum or Plasmaon 08-22-2020 Iron binding capacity [Mass/Vol] 146 ug/dL 255-450 [facility] Iron saturation [Mass Fracti on] in Serum or Plasmaon 08-22-2020 Iron saturation [Mass fraction] 11.0 % 20-50 [facility] Basic Metabolic Panelon 07-29 Calcium [Mass/Vol] 8.8 mg/dL Normal 8.2-10.2 [facility] Comment on above: Performed By: #### C MP, CBC, MG, TROP, BNP #### [address] Chloride [Moles/Vol] 95 mmol/L Normal 95-114 [facility] Comment on above: Performed By: #### C MP, CBC, MG, TROP, BNP #### [address] CO2 [Moles/Vol] 24.4 mmol/L Normal 22.0-30.0 [facility] Comment on above: Performed By: #### C MP, CBC, MG, TROP, BNP #### [address] Creatinine [Mass/Vol] 4.31 mg/dL High 0.64-1.27 [facility] Comment on above: Performed By: #### C MP, CBC, MG, TROP, BNP #### [address] Creatinine Clr Calc Pharmacy 30.19 [facility] Comment on above: Result Comment: PERF ORMED BY: [place] [address] PATHOLOGIST DRY CLIPPER TENDER JORDAN RODRIGUEZ M.D. Performed By: #### C MP, CBC, MG, TROP, BNP #### [address] Estimated GFR ( Camilla 17 [facility] Comment on above: Result Comment: GFR estimated reference range: According to KDOQI guidelines, <60 ml/min/1.73m2 is sufficient to diagnose a patient with chronic kidney disease. Performed By: #### C MP, CBC, MG, TROP, BNP #### [place] [address] Estimated GFR (Non- Am 14 Normal [facility] Comment on above: Performed By: #### C MP, CBC, MG, TROP, BNP #### [address] Glucose [Mass/Vol] 206 mg/dL High 70-100 [facility] Comment on above: Result Comment: [facility] Glucose Reference Range is dependent on time and content of last meal. Glucose of more than 200 mg/dL in a nonstressed, ambulatory subject supports the diagnosis of Diabetes Mellitus. ADA recommended reference range Performed By: #### C MP, CBC, MG, TROP, BNP #### [address] Potassium [Moles/Vol] 4.3 mmol/L Normal 3.5-5.1 [facility] Comment on above: Performed By: #### C MP, CBC, MG, TROP, BNP #### [address] Sodium [Moles/Vol] 131 mmol/L Low 136-146 [facility] Comment on above: Performed By: #### C MP, CBC, MG, TROP, BNP #### [address] Urea nitrogen [Mass/Vol] 44 mg/dL High 9-23 [facility] Comment on above: Performed By: #### C MP, CBC, MG, TROP, BNP #### [address] Creatine Kinaseon 08-21-2020 CK [Catalytic activity/Vol] 45 U/L Normal 22-269 [facility] Comment on above: Performed By: #### C MP, CBC, MG, TROP, BNP #### [address] Creatine kinase [Enzymatic a ctivity/volume] in Serum or Plasmaon 08-21-2020 CK [Catalytic activity/Vol] 45 U/L 22-269 [facility] Creatinine Kinase MBon 08-21 CK.MB [Mass/Vol] 2.3 ng/mL Normal 0.6-6.3 [facility] Comment on above: Performed By: #### C MP, CBC, MG, TROP, BNP #### [facility] [address] CKMB Relative Index 5.1 % High 0.00-2.50 [facility] Comment on above: Performed By: #### C MP, CBC, MG, TROP, BNP #### [facility] [address] ECG 12 lead ECGon 08-21-2020 ECG 12 lead ECG [facility] [place] [address] Electrocardiograph Report Signed Patient: Rashard Lyman MR#: [id number] : 1960 Acct:[id number] Age/Sex: 60 / M ADM Date: 08/18/20 Loc: Room: [address] [place] [address] Type: ADM IN Attending Dr: Eugene Morel [...] By: NURIA Dictated By: Nir Ochoa DO 08/21/2056 Signed By: 08/21/202008 Normal [facility] ECG 12 lead ECG [facility] [place] [address] Electrocardiograph Report Signed Patient: Rashard Lyman MR#: [id number] : 1960 Acct:[id number] Age/Sex: 60 / M ADM Date: 08/18/20 Loc: Room: [address] [place] [address] Type: ADM IN Attending Dr: Eugene Morel [...] MUS Dictated By: Nir Ochoa DO 08/21/20 08 Signed By: 08/21/202029 Normal [facility] ECG 12 lead ECG [facility] [place] [address] Electrocardiograph Report Signed Patient: Rashard Lyman MR#: [id number] : 1960 Acct:[id number] Age/Sex: 60 / M ADM Date: 08/18/20 Loc: Room: [address] [place] [address] Type: ADM IN Attending Dr: Eugene Morel [...] Ochoa DO 08/21/20615 Signed By: 08/21/202053 Normal [facility] Glucose Poct Glucometerson 0 08-21-2020 Glucose [Mass/Vol] 210 mg/dL Normal [facility] Comment on above: Result Comment: [facility] Glucose Reference Range is dependent on time and content of last meal. Glucose of more than 200 mg/dL in a nonstressed, ambulatory subject supports the diagnosis of Diabetes Mellitus. PERFORMED BY: [place] [address] PATHOLOGIST DRY CLIPPER TENDER JORDAN RODRIGUEZ M.D. Performed By: #### C MP, CBC, MG, TROP, BNP #### [facility] [address] [place] [address] Commemt1 Glu2: Cleaned Meter [facility] Comment on above: Result Comment: PERF ORMED BY: [place] [address] PATHOLOGIST DRY CLIPPER TENDER JORDAN RODRIGUEZ M.D. Performed By: #### C MP, CBC, MG, TROP, BNP #### [facility] [address] [place] [address] Glucose [Mass/Vol] 136 mg/dL Normal [facility] Comment on above: Result Comment: [facility] Glucose Reference Range is dependent on time and content of last meal. Glucose of more than 200 mg/dL in a nonstressed, ambulatory subject supports the diagnosis of Diabetes Mellitus. Performed By: #### C MP, CBC, MG, TROP, BNP #### [facility] [address] [place] [address] Commemt1 Glu2: Cleaned Meter [facility] Comment on above: Result Comment: PERF ORMED BY: [place] [address] PATHOLOGIST DRY CLIPPER TENDER JORDAN RODRIGUEZ M.D. Performed By: #### C MP, CBC, MG, TROP, BNP #### [address] Glucose [Mass/Vol] 198 mg/dL Normal [facility] Comment on above: Result Comment: [place] om Glucose Reference Range is dependent on time and content of last meal. Glucose of more than 200 mg/dL in a nonstressed, ambulatory subject supports the diagnosis of Diabetes Mellitus. Performed By: #### C MP, CBC, MG, TROP, BNP #### [address] Commemt1 Glu2: Cleaned Meter Normal [facility] Comment on above: Result Comment: PERF ORMED BY: [place] [address] PATHOLOGIST DRY CLIPPER TENDER JORDAN RODRIGUEZ M.D. Performed By: #### C MP, CBC, MG, TROP, BNP #### [address] Glucose [Mass/Vol] 221 mg/dL Normal [facility] Comment on above: Result Comment: [place] om Glucose Reference Range is dependent on time and content of last meal. Glucose of more than 200 mg/dL in a nonstressed, ambulatory subject supports the diagnosis of Diabetes Mellitus. Performed By: #### C MP, CBC, MG, TROP, BNP #### [facility] [address] [place] [address] [place] Glucose [Mass/Vol] 210 mg/dL Normal [facility] Comment on above: Result Comment: [place] om Glucose Reference Range is dependent on time and content of last meal. Glucose of more than 200 mg/dL in a nonstressed, ambulatory subject supports the diagnosis of Diabetes Mellitus. PERFORMED BY: [place] [address] PATHOLOGIST DRY CLIPPER TENDER JORDAN RODRIGUEZ M.D. Performed By: #### C MP, CBC, MG, TROP, BNP #### [address] No Panel Informationon 08-21 Dohle Bodies Slight [facility] Scan and CBCon 08-21-2020 Anisocytosis Ql (Bld) Slight Normal [facility] Comment on above: Performed By: #### C MP, CBC, MG, TROP, BNP #### [address] Basophils (Bld) [#/Vol] 0.0 10*3/uL Normal 0.0-0.2 [facility] Comment on above: Performed By: #### C MP, CBC, MG, TROP, BNP #### [address] Basophils/100 WBC (Bld) 0.3 % Normal . [facility] Comment on above: Performed By: #### C MP, CBC, MG, TROP, BNP #### [address] Dohle Bodies Slight Normal [facility] Comment on above: Performed By: #### C MP, CBC, MG, TROP, BNP #### [address] Eosinophils (Bld) [#/Vol] 0.5 10*3/uL High 0.0-0.45 [facility] Comment on above: Performed By: #### C MP, CBC, MG, TROP, BNP #### [address] Eosinophils/100 WBC (Bld) 3.2 % Normal . [facility] Comment on above: Performed By: #### C MP, CBC, MG, TROP, BNP #### [address] Erythrocyte distribution width (RBC) [Ratio] 16.6 % High 12.0-14.8 [facility] Comment on above: Performed By: #### C MP, CBC, MG, TROP, BNP #### [address] Hematocrit (Bld) [Volume fraction] 31.8 % Low 38.8-50.0 [facility] Comment on above: Performed By: #### C MP, CBC, MG, TROP, BNP #### [address] Hemoglobin (Bld) [Mass/Vol] 10.3 g/dL Low 13.0-17.0 [facility] Comment on above: Performed By: #### C MP, CBC, MG, TROP, BNP #### [address] Lymphocytes (Bld) [#/Vol] 1.2 10*3/uL Normal 1.00-4.8 [facility] Comment on above: Performed By: #### C MP, CBC, MG, TROP, BNP #### [address] Lymphocytes/100 WBC (Bld) 8.1 % Normal . [facility] Comment on above: Performed By: #### C MP, CBC, MG, TROP, BNP #### [address] MCH (RBC) [Entitic mass] 26.8 pg Low 27.5-35.2 [facility] Comment on above: Performed By: #### C MP, CBC, MG, TROP, BNP #### [address] MCV (RBC) [Entitic vol] 83.1 fL Low 83.5-101 [facility] Comment on above: Performed By: #### C MP, CBC, MG, TROP, BNP #### [address] Mean Corpuscular HGB Conc 32.3 g/dL Low 32.5-35.6 [facility] Comment on above: Performed By: #### C MP, CBC, MG, TROP, BNP #### [address] Monocytes (Bld) [#/Vol] 1.7 10*3/uL High 0.0-0.8 [facility] Comment on above: Performed By: #### C MP, CBC, MG, TROP, BNP #### [address] Monocytes/100 WBC (Bld) 11.4 % Normal . [facility] Comment on above: Performed By: #### C MP, CBC, MG, TROP, BNP #### [address] Neutrophils (Bld) [#/Vol] 11.2 10*3/uL High 1.8-7.7 [facility] Comment on above: Performed By: #### C MP, CBC, MG, TROP, BNP #### [address] Neutrophils/100 WBC (Bld) 77.0 % Normal . [facility] Comment on above: Performed By: #### C MP, CBC, MG, TROP, BNP #### [address] Nucleated RBC/100 WBC (Bld) [Ratio] 0.1 % Normal 0-0.5 [facility] Comment on above: Performed By: #### C MP, CBC, MG, TROP, BNP #### [address] Platelet Estimate Normal Normal Normal [facility] Comment on above: Performed By: #### C MP, CBC, MG, TROP, BNP #### [address] Platelet mean volume (Bld) [Entitic vol] 7.8 fL Normal 6.6-10.1 [facility] Comment on above: Performed By: #### C MP, CBC, MG, TROP, BNP #### [address] Platelet Morphology Normal Normal Normal [facility] Comment on above: Result Comment: PERF ORMED BY: [place] [address] PATHOLOGIST DRY CLIPPER TENDER JORDAN RODRIGUEZ M.D. Performed By: #### C MP, CBC, MG, TROP, BNP #### [facility] [address] Platelets (Bld) [#/Vol] 265 10*3/uL Normal 150-450 [facility] Comment on above: Performed By: #### C MP, CBC, MG, TROP, BNP #### [facility] [address] RBC (Bld) [#/Vol] 3.83 10*6/uL Low 3.90-5.60 [facility] Comment on above: Performed By: #### C MP, CBC, MG, TROP, BNP #### [facility] [address] WBC (Bld) [#/Vol] 14.6 10*3/uL High 4.5-11.0 [facility] Comment on above: Performed By: #### C MP, CBC, MG, TROP, BNP #### [facility] [address] Serum or plasma cardiac trop onin I measurement (mass/volume)on 08-21-2020 Troponin I.cardiac [Mass/Vol] ng/mL 0-0.02 [facility] Comment on above: HÉCTOR MD Cut off value > or equal to 0.03 ng/mL in conjunction with clinical conditions of myocardial infarction.(www.escardio.org/guidelines) Serum or plasma creatine kin ase MB (CKMB)/total creatine kinase (CK) ratio by calculaon 08-21-2020 CK.MB Calc [Catalytic fraction] 5.1 % 0.00-2.50 [facility] Serum or plasma creatine kin ase MB measurement (mass/volume)on 08-21-2020 CK.MB [Mass/Vol] 2.3 ng/mL 0.6-6.3 [facility] Troponin I(TnI)on 08-21-2020 Troponin I.cardiac [Mass/Vol] ng/mL Normal 0-0.02 [facility] Comment on above: Result Comment: HÉCTOR MD Cut off value > or equal to 0.03 ng/mL in conjunction with clinical conditions of myocardial infarction. (www.escardio.org/guidelines) PERFORMED BY: [place] [address] PATHOLOGIST DRY CLIPPER TENDER JORDAN RODRIGUEZ M.D. Performed By: #### C MP, CBC, MG, TROP, BNP #### [address] Troponin I.cardiac [Mass/Vol] ng/mL Normal 0-0.02 [facility] Comment on above: Result Comment: HÉCTOR MD Cut off value > or equal to 0.03 ng/mL in conjunction with clinical conditions of myocardial infarction. (www.escardio.org/guidelines) PERFORMED BY: [place] [address] PATHOLOGIST DRY CLIPPER TENDER JORDAN RODRIGUEZ M.D. Performed By: #### C MP, CBC, MG, TROP, BNP #### [address] Basic Metabolic Panelon 07-29 Calcium [Mass/Vol] 8.4 mg/dL Normal 8.2-10.2 [facility] Comment on above: Performed By: #### C MP, CBC, MG, TROP, BNP #### [address] Chloride [Moles/Vol] 99 mmol/L Normal 95-114 [facility] Comment on above: Performed By: #### C MP, CBC, MG, TROP, BNP #### [address] CO2 [Moles/Vol] 25.0 mmol/L Normal 22.0-30.0 [facility] Comment on above: Performed By: #### C MP, CBC, MG, TROP, BNP #### [address] Creatinine [Mass/Vol] 3.26 mg/dL High 0.64-1.27 [facility] Comment on above: Performed By: #### C MP, CBC, MG, TROP, BNP #### [address] Creatinine Clr Calc Pharmacy 39.92 [facility] Comment on above: Result Comment: PERF ORMED BY: [place] [address] PATHOLOGIST DRY CLIPPER TENDER JORDAN RODRIGUEZ M.D. Performed By: #### C MP, CBC, MG, TROP, BNP #### [address] Estimated GFR ( Camilla 24 [facility] Comment on above: Result Comment: GFR estimated reference range: According to KDOQI guidelines, <60 ml/min/1.73m2 is sufficient to diagnose a patient with chronic kidney disease. Performed By: #### C MP, CBC, MG, TROP, BNP #### [address] Estimated GFR (Non- Am 19 [facility] Comment on above: Performed By: #### C MP, CBC, MG, TROP, BNP #### [address] Glucose [Mass/Vol] 205 mg/dL High 70-100 [facility] Comment on above: Result Comment: [place] om Glucose Reference Range is dependent on time and content of last meal. Glucose of more than 200 mg/dL in a nonstressed, ambulatory subject supports the diagnosis of Diabetes Mellitus. ADA recommended reference range Performed By: #### C MP, CBC, MG, TROP, BNP #### [address] Potassium [Moles/Vol] 3.5 mmol/L Normal 3.5-5.1 [facility] Comment on above: Performed By: #### C MP, CBC, MG, TROP, BNP #### [address] Sodium [Moles/Vol] 131 mmol/L Low 136-146 [facility] Comment on above: Performed By: #### C MP, CBC, MG, TROP, BNP #### [address] Urea nitrogen [Mass/Vol] 35 mg/dL High 9-23 [facility] Comment on above: Performed By: #### C MP, CBC, MG, TROP, BNP #### [facility] [address] C-Reactive Proteinon 021 C-Reactive Protein 19.4 mg/dL High 0.0-1.0 [facility] Comment on above: Result Comment: PERF ORMED BY: [place] [address] PATHOLOGIST DRY CLIPPER TENDER JORDAN RODRIGUEZ M.D. Performed By: #### C MP, CBC, MG, TROP, BNP #### [address] Erythrocyte Sedimentation Ra donato 08-20-2020 ESR (Bld) [Velocity] 108 mm/h High 0- [facility] Comment on above: Result Comment: PERF ORMED BY: [place] [address] PATHOLOGIST DRY CLIPPER TENDER JORDAN RODRIGUEZ M.D. Performed By: #### C MP, CBC, MG, TROP, BNP #### [address] Erythrocyte sedimentation ra te by Photometric methodon 08-20-2020 ESR Photometric method (Bld) [Velocity] 108 mm/hr 0 [facility] Glucose Poct Glucometerson 0 08-20-2020 Glucose [Mass/Vol] 195 mg/dL Normal [facility] Comment on above: Result Comment: [facility] Glucose Reference Range is dependent on time and content of last meal. Glucose of more than 200 mg/dL in a nonstressed, ambulatory subject supports the diagnosis of Diabetes Mellitus. PERFORMED BY: [place] [address] PATHOLOGIST DRY CLIPPER TENDER JORDAN RODRIGUEZ M.D. Performed By: #### C MP, CBC, MG, TROP, BNP #### [address] Glucose [Mass/Vol] 171 mg/dL Normal [facility] Comment on above: Result Comment: [place] om Glucose Reference Range is dependent on time and content of last meal. Glucose of more than 200 mg/dL in a nonstressed, ambulatory subject supports the diagnosis of Diabetes Mellitus. PERFORMED BY: [place] [address] PATHOLOGIST DRY CLIPPER TENDER JORDAN RODRIGUEZ M.D. Performed By: #### C MP, CBC, MG, TROP, BNP #### [facility] [address] [place] [address] [place] Glucose [Mass/Vol] 246 mg/dL Normal [facility] Comment on above: Result Comment: [place] om Glucose Reference Range is dependent on time and content of last meal. Glucose of more than 200 mg/dL in a nonstressed, ambulatory subject supports the diagnosis of Diabetes Mellitus. PERFORMED BY: [place] [address] PATHOLOGIST DRY CLIPPER TENDER JORDAN RODRIGUEZ M.D. Performed By: #### C MP, CBC, MG, TROP, BNP #### [place] [address] [place] Glucose [Mass/Vol] 274 mg/dL Normal [facility] Comment on above: Result Comment: [place] om Glucose Reference Range is dependent on time and content of last meal. Glucose of more than 200 mg/dL in a nonstressed, ambulatory subject supports the diagnosis of Diabetes Mellitus. PERFORMED BY: [place] [address] PATHOLOGIST DRY CLIPPER TENDER JORDAN RODRIGUEZ M.D. Performed By: #### C MP, CBC, MG, TROP, BNP #### [facility] [address] [place] [address] [place] Glucose [Mass/Vol] 221 mg/dL Normal [facility] Comment on above: Result Comment: [place] om Glucose Reference Range is dependent on time and content of last meal. Glucose of more than 200 mg/dL in a nonstressed, ambulatory subject supports the diagnosis of Diabetes Mellitus. PERFORMED BY: [place] [address] PATHOLOGIST DRY CLIPPER TENDER JORDAN RODRIGUEZ M.D. Performed By: #### C MP, CBC, MG, TROP, BNP #### [place] [id number] [facility] MR thoracic spine wo conon 0 08-20-2020 MR thoracic spine wo con [facility] Main [place] [address] [place] [address] MRI Report Signed Patient: Rashard Lyman MR#: [id number] : 1960 Acct:[id number] Age/Sex: 60 / M ADM Date: 08/18/20 Loc: Room: [address] [place] [address] Type: ADM IN Attending Dr: Eugene Morel [...] Chitra Brantley M.D.08/20/2020 6:27 PM Dictation Location: [place] [address] Transcribed By: JU 08/20/201826 Dictated By: Chitra Brantley MD 08/20/201816 Signed By: 08/20/201826 Normal [facility] [facility]Con 08-20-2020 Anisocytosis Ql (Bld) Slight Normal [facility] Comment on above: Performed By: #### C MP, CBC, MG, TROP, BNP #### [address] Basophils (Bld) [#/Vol] 0.0 10*3/uL Normal 0.0-0.2 [facility] Comment on above: Performed By: #### C MP, CBC, MG, TROP, BNP #### [address] Basophils/100 WBC (Bld) 0.3 % Normal . [facility] Comment on above: Performed By: #### C MP, CBC, MG, TROP, BNP #### [address] Dohle Bodies Slight Normal [facility] Comment on above: Performed By: #### C MP, CBC, MG, TROP, BNP #### [address] Eosinophils (Bld) [#/Vol] 0.5 10*3/uL High 0.0-0.45 [facility] Comment on above: Performed By: #### C MP, CBC, MG, TROP, BNP #### [address] Eosinophils/100 WBC (Bld) 3.8 % Normal . [facility] Comment on above: Performed By: #### C MP, CBC, MG, TROP, BNP #### [address] Erythrocyte distribution width (RBC) [Ratio] 16.2 % High 12.0-14.8 [facility] Comment on above: Performed By: #### C MP, CBC, MG, TROP, BNP #### [address] Hematocrit (Bld) [Volume fraction] 32.1 % Low 38.8-50.0 [facility] Comment on above: Performed By: #### C MP, CBC, MG, TROP, BNP #### [address] Hemoglobin (Bld) [Mass/Vol] 10.4 g/dL Low 13.0-17.0 [facility] Comment on above: Performed By: #### C MP, CBC, MG, TROP, BNP #### [address] Lymphocytes (Bld) [#/Vol] 1.5 10*3/uL Normal 1.00-4.8 [facility] Comment on above: Performed By: #### C MP, CBC, MG, TROP, BNP #### [address] Lymphocytes/100 WBC (Bld) 11.0 % Normal . [facility] Comment on above: Performed By: #### C MP, CBC, MG, TROP, BNP #### [address] MCH (RBC) [Entitic mass] 26.7 pg Low 27.5-35.2 [facility] Comment on above: Performed By: #### C MP, CBC, MG, TROP, BNP #### [address] MCV (RBC) [Entitic vol] 82.2 fL Low 83.5-101 [facility] Comment on above: Performed By: #### C MP, CBC, MG, TROP, BNP #### [address] Mean Corpuscular HGB Conc 32.5 g/dL Normal 32.5-35.6 [facility] Comment on above: Performed By: #### C MP, CBC, MG, TROP, BNP #### [address] Monocytes (Bld) [#/Vol] 1.7 10*3/uL High 0.0-0.8 [facility] Comment on above: Performed By: #### C MP, CBC, MG, TROP, BNP #### [address] Monocytes/100 WBC (Bld) 12.5 % Normal . [facility] Comment on above: Performed By: #### C MP, CBC, MG, TROP, BNP #### [address] Neutrophils (Bld) [#/Vol] 9.7 10*3/uL High 1.8-7.7 [facility] Comment on above: Performed By: #### C MP, CBC, MG, TROP, BNP #### [address] Neutrophils/100 WBC (Bld) 72.4 % Normal . [facility] Comment on above: Performed By: #### C MP, CBC, MG, TROP, BNP #### [address] Nucleated RBC/100 WBC (Bld) [Ratio] 0.0 % Normal 0-0.5 [facility] Comment on above: Performed By: #### C MP, CBC, MG, TROP, BNP #### [address] Platelet Estimate Normal Normal Normal [facility] Comment on above: Performed By: #### C MP, CBC, MG, TROP, BNP #### [address] Platelet mean volume (Bld) [Entitic vol] 7.7 fL Normal 6.6-10.1 [facility] Comment on above: Performed By: #### C MP, CBC, MG, TROP, BNP #### [address] Platelet Morphology Normal Normal Normal [facility] Comment on above: Performed By: #### C MP, CBC, MG, TROP, BNP #### [address] Platelets (Bld) [#/Vol] 253 10*3/uL Normal 150-450 [facility] Comment on above: Performed By: #### C MP, CBC, MG, TROP, BNP #### [address] RBC (Bld) [#/Vol] 3.90 10*6/uL Normal 3.90-5.60 [facility] Comment on above: Performed By: #### C MP, CBC, MG, TROP, BNP #### [address] WBC (Bld) [#/Vol] 13.4 10*3/uL High 4.5-11.0 [facility] Comment on above: Performed By: #### C MP, CBC, MG, TROP, BNP #### [address] Serum or plasma C reactive p rotein measurement (mass/volume)on 08-20-2020 CRP [Mass/Vol] 19.4 mg/dL 0.0-1.0 [facility] A1C with Estimated Average G maryannn 08-19-2020 Glucose [Mass/Vol] 298 mg/dL Normal [facility] Comment on above: Result Comment: PERF ORMED BY: [place] [address] PATHOLOGIST [employer]IP[employer] T[employer]ER JORDAN RODRIGUEZ M.D. Performed By: #### C MP, CBC, MG, TROP, BNP #### [address] HbA1c (Bld) [Mass fraction] 12.0 % High 4.3-5.6 [facility] Comment on above: Result Comment: Incr eased risk for diabetes: 5.7 - 6.4 diabetes: >6.4 glycemic control for adults with diabetes: <7.0 Performed By: #### C MP, CBC, MG, TROP, BNP #### [address] ABO and Rh group post transf usion reaction Nom (Bld)on 08-19-2020 Microscopic observation Gram stain Nom (Unsp spec) [facility] Aerobic Cultureon 08-19-2020 Aerobic Culture Light Normal Respira tory Edith 2 Days Gram Stain Result 2+ White Blood Cells 1+ Epithelial Cells 1+ Gram Positive Cocci PERFORMED BY: [place] [address] PATHOLOGIST [employer]IP[employer] T[employer]ER JORDAN RODRIGUEZ M.D. [facility] Comment on above: Performed By: #### C MP, CBC, MG, TROP, BNP #### [address] Basic Metabolic Panelon 07-29 Calcium [Mass/Vol] 8.4 mg/dL Normal 8.2-10.2 [facility] Comment on above: Performed By: #### C MP, CBC, MG, TROP, BNP #### [address] Chloride [Moles/Vol] 98 mmol/L Normal 95-114 [facility] Comment on above: Performed By: #### C MP, CBC, MG, TROP, BNP #### [address] CO2 [Moles/Vol] 25.3 mmol/L Normal 22.0-30.0 [facility] Comment on above: Performed By: #### C MP, CBC, MG, TROP, BNP #### [address] Creatinine [Mass/Vol] 3.04 mg/dL High 0.64-1.27 [facility] Comment on above: Performed By: #### C MP, CBC, MG, TROP, BNP #### [place] [address] [place] Creatinine Clr Calc Pharm[facility] 42.91 [facility] Comment on above: Performed By: #### C MP, CBC, MG, TROP, BNP #### [address] Estimated GFR ( Camilla 26 [facility] Comment on above: Result Comment: GFR estimated reference range: According to KDOQI guidelines, <60 ml/min/1.73m2 is sufficient to diagnose a patient with chronic kidney disease. Performed By: #### C MP, CBC, MG, TROP, BNP #### [facility] [address] Estimated GFR (Non- Am 21 Normal [facility] Comment on above: Performed By: #### C MP, CBC, MG, TROP, BNP #### [facility] [address] Glucose [Mass/Vol] 328 mg/dL High 70-100 [facility] Comment on above: Result Comment: [facility] Glucose Reference Range is dependent on time and content of last meal. Glucose of more than 200 mg/dL in a nonstressed, ambulatory subject supports the diagnosis of Diabetes Mellitus. ADA recommended reference range Performed By: #### C MP, CBC, MG, TROP, BNP #### [address] Potassium [Moles/Vol] 3.4 mmol/L Low 3.5-5.1 [facility] Comment on above: Performed By: #### C MP, CBC, MG, TROP, BNP #### [facility] [address] [place] [address] [place] Sodium [Moles/Vol] 131 mmol/L Low 136-146 [facility] Comment on above: Performed By: #### C MP, CBC, MG, TROP, BNP #### [facility] [address] [place] [address] [place] Urea nitrogen [Mass/Vol] 30 mg/dL High -23 [facility] Comment on above: Performed By: #### C MP, CBC, MG, TROP, BNP #### [address] abdomen pelvis wo conon 0 08-19-2020 CT abdomen pelvis wo [facility] [place] [address] [place] [address] CT Scan Report Signed Patient: Rashard Lyman MR#: [id number] : 1960 Acct:[id number] Age/Sex: 60 / M ADM Date: 08/18/20 Loc: 4P Room: 3L9218-2 Type: ADM IN Attending Dr: Eugene Morel DO Ordering Provider: Eugene Morel DO Date of Service: 08/19/20 CT/CT abdomen pelvis wo con: left sided pain ([id number]) CT/CT chest wo con: left lung base [...] Hector Mckinney M.D.08/19/2020 8:01 PM Dictation Location: [place] [address] Transcribed By: [facility] 08/19/202000 Dictated By: Hector Mckinney II, MD 08/19/201947 Signed By: 08/19/202000 Normal [facility] Glucose Poct Glucometerson 0 08-19-2020 Glucose [Mass/Vol] 266 mg/dL Normal [facility] Comment on above: Result Comment: [facility] Glucose Reference Range is dependent on time and content of last meal. Glucose of more than 200 mg/dL in a nonstressed, ambulatory subject supports the diagnosis of Diabetes Mellitus. PERFORMED BY: [place] [address] PATHOLOGIST [employer] CLIP[employer] T[employer]ER JORDAN RODRIGUEZ M.D. Performed By: #### C MP, CBC, MG, TROP, BNP #### [facility] [address] [place] [address] Glucose [Mass/Vol] 349 mg/dL Normal [facility] Comment on above: Result Comment: [facility] Glucose Reference Range is dependent on time and content of last meal. Glucose of more than 200 mg/dL in a nonstressed, ambulatory subject supports the diagnosis of Diabetes Mellitus. PERFORMED BY: [place] [address] PATHOLOGIST [employer]IP[employer] T[employer]ER JORDAN RODRIGUEZ M.D. Performed By: #### C MP, CBC, MG, TROP, BNP #### [facility] [address] [place], [place] [id number] [facility] Glucose [Mass/Vol] 258 mg/dL Normal [facility] Comment on above: Result Comment: [facility] Glucose Reference Range is dependent on time and content of last meal. Glucose of more than 200 mg/dL in a nonstressed, ambulatory subject supports the diagnosis of Diabetes Mellitus. PERFORMED BY: [place] [address] PATHOLOGIST [employer] CLIPPER TENDER JORDAN RODRIGUEZ M.D. Performed By: #### C MP, CBC, MG, TROP, BNP #### [address] Glucose [Mass/Vol] 292 mg/dL Normal [facility] Comment on above: Result Comment: [facility] Glucose Reference Range is dependent on time and content of last meal. Glucose of more than 200 mg/dL in a nonstressed, ambulatory subject supports the diagnosis of Diabetes Mellitus. PERFORMED BY: [place] [address] PATHOLOGIST [employer] CLIPPER T[employer]ER JORDAN RODRIGUEZ M.D. Performed By: #### C MP, CBC, MG, TROP, BNP #### [address] Commemt1 Glu2: Cleaned Meter Normal [facility] Comment on above: Result Comment: PERF ORMED BY: [place] [address] PATHOLOGIST [employer] CLIPPER T[employer]ER JORDAN RODRIGUEZ M.D. Performed By: #### C MP, CBC, MG, TROP, BNP #### [address] Glucose [Mass/Vol] 350 mg/dL Normal [facility] Comment on above: Result Comment: [facility] Glucose Reference Range is dependent on time and content of last meal. Glucose of more than 200 mg/dL in a nonstressed, ambulatory subject supports the diagnosis of Diabetes Mellitus. Performed By: #### C MP, CBC, MG, TROP, BNP #### [address] Glucose mean value [Mass/vol ume] in Blood Estimated from glycated hemoglobinon 08-19-2020 Average glucose Estimated from glycated hemoglobin (Bld) [Mass/Vol] 298 mg/dL [facility] Gram Stainon 08-19-2020 Microscopic observation Gram stain Nom (Unsp spec) Gram Stain Result 2+ White Blood Cells 1+ Epithelial Cells 1+ Gram Positive Cocci PERFORMED BY: [place] [address] PATHOLOGIST [employer]IP[employer] T[employer]ER JORDAN RODRIGUEZ M.D. Normal [facility] Comment on above: Performed By: #### C MP, CBC, MG, TROP, BNP #### [address] Hemoglobin A1c percentageon 08-19-2020 HbA1c (Bld) [Mass fraction] 12.0 % 4.3-5.6 [facility] Comment on above: Increased risk for d iabetes: 5.7 - 6.4diabetes: >6.4glycemic control for adults with diabetes: <7.0 Laboratory - Chemistry and C hemistry - challengeon 08-19-2020 Magnesium [Mass/Vol] 2.0 mg/dL 1.6-2.6 [facility] Magnesiumon 08-19-2020 Magnesium [Mass/Vol] 2.0 mg/dL Normal 1.6-2.6 [facility] Comment on above: Performed By: #### C MP, CBC, MG, TROP, BNP #### [address] No Panel Informationon 08-19 25-Hydroxy Vitamin D Total 24.6 ng/mL 30-100 [facility] Comment on above: VITAMIN D STATUS 25( [place])VITAMIN D RANGE (ng/mL) Deficient <20 Insufficient 20 to <30Sufficient 30 to 100Reference: Aki MF,Oriana NC, Elli JONAS, et al. Evaluation,treatment, and prevention of vitamin D deficiency; an Endocrine Society clinical practice guideline. JCEM. 2010; 96(7):1911-30. Scan and CBCon 08-19-2020 Anisocytosis Ql (Bld) Slight Normal [facility] Comment on above: Performed By: #### C MP, CBC, MG, TROP, BNP #### [place] [address] [place] Basophils (Bld) [#/Vol] 0.1 10*3/uL Normal 0.0-0.2 [facility] Comment on above: Performed By: #### C MP, CBC, MG, TROP, BNP #### [facility] [address] Basophils/100 WBC (Bld) 0.8 % Normal . [facility] Comment on above: Performed By: #### C MP, CBC, MG, TROP, BNP #### [address] Eosinophils (Bld) [#/Vol] 0.4 10*3/uL Normal 0.0-0.45 [facility] Comment on above: Performed By: #### C MP, CBC, MG, TROP, BNP #### [address] Eosinophils/100 WBC (Bld) 2.8 % Normal . [facility] Comment on above: Performed By: #### C MP, CBC, MG, TROP, BNP #### [address] Erythrocyte distribution width (RBC) [Ratio] 16.0 % High 12.0-14.8 [facility] Comment on above: Performed By: #### C MP, CBC, MG, TROP, BNP #### [address] Hematocrit (Bld) [Volume fraction] 32.4 % Low 38.8-50.0 [facility] Comment on above: Performed By: #### C MP, CBC, MG, TROP, BNP #### [address] Hemoglobin (Bld) [Mass/Vol] 10.5 g/dL Low 13.0-17.0 [facility] Comment on above: Performed By: #### C MP, CBC, MG, TROP, BNP #### [address] Lymphocytes (Bld) [#/Vol] 1.6 10*3/uL Normal 1.00-4.8 [facility] Comment on above: Performed By: #### C MP, CBC, MG, TROP, BNP #### [address] Lymphocytes/100 WBC (Bld) 11.4 % Normal . [facility] Comment on above: Performed By: #### C MP, CBC, MG, TROP, BNP #### [address] MCH (RBC) [Entitic mass] 26.6 pg Low 27.5-35.2 [facility] Comment on above: Performed By: #### C MP, CBC, MG, TROP, BNP #### [address] MCV (RBC) [Entitic vol] 82.4 fL Low 83.5-101 [facility] Comment on above: Performed By: #### C MP, CBC, MG, TROP, BNP #### [address] Mean Corpuscular HGB Conc 32.3 g/dL Low 32.5-35.6 [facility] Comment on above: Performed By: #### C MP, CBC, MG, TROP, BNP #### [address] Monocytes (Bld) [#/Vol] 1.6 10*3/uL High 0.0-0.8 [facility] Comment on above: Performed By: #### C MP, CBC, MG, TROP, BNP #### [address] Monocytes/100 WBC (Bld) 11.7 % Normal . [facility] Comment on above: Performed By: #### C MP, CBC, MG, TROP, BNP #### [address] Neutrophils (Bld) [#/Vol] 10.2 10*3/uL High 1.8-7.7 [facility] Comment on above: Performed By: #### C MP, CBC, MG, TROP, BNP #### [address] Neutrophils/100 WBC (Bld) 73.3 % Normal . [facility] Comment on above: Performed By: #### C MP, CBC, MG, TROP, BNP #### [address] Nucleated RBC/100 WBC (Bld) [Ratio] 0.0 % Normal 0-0.5 [facility] Comment on above: Performed By: #### C MP, CBC, MG, TROP, BNP #### [address] Platelet Estimate Normal Normal Normal [facility] Comment on above: Performed By: #### C MP, CBC, MG, TROP, BNP #### [address] Platelet mean volume (Bld) [Entitic vol] 7.5 fL Normal 6.6-10.1 [facility] Comment on above: Performed By: #### C MP, CBC, MG, TROP, BNP #### [address] Platelet Morphology Normal Normal Normal [facility] Comment on above: Result Comment: PERF ORMED BY: [place] [address] PATHOLOGIST DRY CLIPPER TENDER JORDAN RODRIGUEZ M.D. Performed By: #### C MP, CBC, MG, TROP, BNP #### [address] Platelets (Bld) [#/Vol] 249 10*3/uL Normal 150-450 [facility] Comment on above: Performed By: #### C MP, CBC, MG, TROP, BNP #### [address] RBC (Bld) [#/Vol] 3.93 10*6/uL Normal 3.90-5.60 [facility] Comment on above: Performed By: #### C MP, CBC, MG, TROP, BNP #### [facility] [address] WBC (Bld) [#/Vol] 14.0 10*3/uL High 4.5-11.0 [facility] Comment on above: Performed By: #### C MP, CBC, MG, TROP, BNP #### [facility] [address] [place] [address] US renal BIon 08-19-2020 US renal BI [facility] [place] [address] [place] [address] Ultrasound Report Signed Patient: Rashard Lyman MR#: [id number] : 1960 Acct:[id number] Age/Sex: 60 / M ADM Date: 08/18/20 Loc: Room: [address] [place] [address] Type: ADM IN Attending Dr: Eugene Morel [...] Hector Mckinney M.D.08/19/2020 6:09 PM Dictation Location: [place] [address] Tech: Sandra Sierra Transcribed By: JU 08/19/201808 Dictated By: Hector Mckinney II, MD 08/19/201807 Signed By: 08/19/20 180 Normal [facility] Vitamin D 25 Hydroxy Totalon 08-19-2020 Vitamin D 25 Hydroxy Total 24.6 ng/mL Low 30-100 [facility] Comment on above: Result Comment: ADA MIN D STATUS 25(OH)VITAMIN D RANGE (ng/mL) Deficient <20 Insufficient 20 to <30 Sufficient 30 to 100 Reference: Aki MF,Oriana NC, Elli JONAS, et al. Evaluation,treatment, and prevention of vitamin D deficiency; an Endocrine Society clinical practice guideline. JCEM. 2010; 96(7):1911-30. PERFORMED BY: [place] [address] PATHOLOGIST DRY CLIPPER TENDER JORDAN RODRIGUEZ M.D. Performed By: #### C MP, CBC, MG, TROP, BNP #### [address] [address] [facility] Activated partial thrombopla stin time (aPTT) in platelet poor plasma by coagulation aon 08-18-2020 aPTT Coag (PPP) [Time] 36.9 s 25.1-36.5 [facility] Albumin [Mass/volume] in Ser um or Plasmaon 08-18-2020 Albumin [Mass/Vol] 2.7 g/dL 3.2-5.5 [facility] B-Type Natriuretic Peptideon 08-18-2020 Natriuretic peptide B (Bld) [Mass/Vol] 48.0 pg/mL Normal 5-100 [facility] Comment on above: Result Comment: PERF ORMED BY: [facility] [address] [place] [address] PATHOLOGIST [employer]Y CLIPPER TENDER JORDAN RODRIGUEZ M.D. Performed By: #### C MP, CBC, MG, TROP, BNP #### [facility] [address] [place] [id number] [facility] Bacterial blood cultureon Bacteria identified Cx Nom (Bld) NO GROWTH 5 DAYS [facility] Basophils Auto (Bld) [#/Vol] on 08-18-2020 Basophils (Bld) [#/Vol] 0.0 10*3/uL 0.0-0.2 [facility] Basophils/100 WBC Auto (Bld) on 08-18-2020 Basophils/100 WBC (Bld) 0.3 % [facility] Beta Hydroxybuterateon 08-18 Beta Hydroxybuterate 0.44 mmol/L High 0.02-0.27 [facility] Comment on above: Result Comment: PERF ORMED BY: [place] [address] PATHOLOGIST DRY CLIPPER TENDER JORDAN RODRIGUEZ M.D. Performed By: #### C MP, CBC, MG, TROP, BNP #### [address] Beta-hydroxybutyric acid faraz surementon 08-18-2020 Beta hydroxybutyrate [Mass/Vol] 0.44 mmol/L 0.02-0.27 [facility] BioFire Not Detectedon 08-18 BioFire Not Detected Not detected Normal Not Detecte [facility] Comment on above: Result Comment: This is a duplicate RP2.1 COVID (PCR) result to be used for statistical tracking purpose only. PERFORMED BY: [place] [address] PATHOLOGIST DRY CLIPPER TENDER JORDAN RODRIGUEZ M.D. Performed By: #### C MP, CBC, MG, TROP, BNP #### [address] Blood Cultureon 08-18-2020 Bacteria identified Cx Nom (Bld) NO GROWTH 5 DAYS PERFORMED BY: [place] [address] PATHOLOGIST DRY CLIPPER TENDER JORDAN RODRIGUEZ M.D. Normal [facility] Comment on above: Performed By: #### C MP, CBC, MG, TROP, BNP #### [address] Bacteria identified Cx Nom (Bld) NO GROWTH 5 DAYS PERFORMED BY: [place] [address] PATHOLOGIST DRY CLIPPER TENDER JORDAN RODRIGUEZ M.D. Normal [facility] Comment on above: Performed By: #### C MP, CBC, MG, TROP, BNP #### [facility] [address] Blood hemoglobin measurement (mass/volume)on 08-18-2020 Hemoglobin (Bld) [Mass/Vol] 11.8 g/dL 13.0-17.0 [facility] Blood leukocytes automated c ount (number/volume)on 08-18-2020 WBC (Bld) [#/Vol] 15.3 10*3/uL 4.5-11.0 [facility] COVID-19 Antigenon 1 COVID-19 Antigen [facility] [...] its performance Liat Disclaimer characteristic determined by [employer] and Liat Disclaimer validated at [facility]. This Liat Disclaimer test has not been [...] is terminated or revoked sooner. PERFORMED BY: [place] [address] PATHOLOGIST DRY CLIPPER TENDER JORDAN RODRIGUEZ M.D. [facility] Comment on above: Performed By: #### C OVID-19 BALJEET JOSUEEG #### [address] COVID-19 Detected/Not Detect edon 08-18-2020 SARS-CoV-2 (COVID-19) RNA SUDHA+non-probe Ql (Nph) Not detected Not Detecte [facility] Comment on above: This is a duplicate RP2.1 COVID (PCR) result to be used for statistical tracking purpose only. COVID-19 SOFIAon 08-18-2020 SARS-CoV+SARS-CoV-2 (COVID-19) Ag IA.rapid Ql (Resp) Negative Negative [facility] Comment on above: This is a duplicate Liat SARS Antigen (AGUSTINA) result to be used for statistical tracking purpose only. Coagulation Profileon 2020 aPTT Coag (Bld) [Time] 36.9 s High 25.1-36.5 [facility] Comment on above: Order Comment: REDRA W FOR SHORT DRAW AND HEMOLYSIS Result Comment: PERF ORMED BY: [place] [address] PATHOLOGIST DRY CLIPPER TENDER JORDAN RODRIGUEZ M.D. Performed By: #### P P #### [address] INR Coag (PPP) [Relative time] 1.0 {INR} Normal [facility] Comment on above: Order Comment: [...] 4.5 Performed By: #### P P #### [address] PT Coag (PPP) [Time] 11.7 s Normal 9.0-12.9 [facility] Comment on above: Order Comment: REDRA W FOR SHORT DRAW AND HEMOLYSIS Performed By: #### P P #### [address] Complete Blood Count Auto Di ffon 08-18-2020 Basophils (Bld) [#/Vol] 0.0 10*3/uL Normal 0.0-0.2 [facility] Comment on above: Result Comment: PERF ORMED BY: [place] [address] PATHOLOGIST DRY CLIPPER TENDER JORDAN RODRGIUEZ M.D. Performed By: #### C MP, CBC, MG, TROP, BNP #### [address] Basophils/100 WBC (Bld) 0.3 % Normal . [facility] Comment on above: Performed By: #### C MP, CBC, MG, TROP, BNP #### [address] Eosinophils (Bld) [#/Vol] 0.5 10*3/uL High 0.0-0.45 [facility] Comment on above: Performed By: #### C MP, CBC, MG, TROP, BNP #### [address] Eosinophils/100 WBC (Bld) 3.4 % Normal . [facility] Comment on above: Performed By: #### C MP, CBC, MG, TROP, BNP #### [address] Erythrocyte distribution width (RBC) [Ratio] 16.3 % High 12.0-14.8 [facility] Comment on above: Performed By: #### C MP, CBC, MG, TROP, BNP #### [address] Hematocrit (Bld) [Volume fraction] 36.1 % Low 38.8-50.0 [facility] Comment on above: Performed By: #### C MP, CBC, MG, TROP, BNP #### [address] Hemoglobin (Bld) [Mass/Vol] 11.8 g/dL Low 13.0-17.0 [facility] Comment on above: Performed By: #### C MP, CBC, MG, TROP, BNP #### [address] Lymphocytes (Bld) [#/Vol] 0.9 10*3/uL Low 1.00-4.8 [facility] Comment on above: Performed By: #### C MP, CBC, MG, TROP, BNP #### [address] Lymphocytes/100 WBC (Bld) 6.1 % Normal . [facility] Comment on above: Performed By: #### C MP, CBC, MG, TROP, BNP #### [address] MCH (RBC) [Entitic mass] 27.2 pg Low 27.5-35.2 [facility] Comment on above: Performed By: #### C MP, CBC, MG, TROP, BNP #### [address] MCV (RBC) [Entitic vol] 83.5 fL Normal 83.5-101 [facility] Comment on above: Performed By: #### C MP, CBC, MG, TROP, BNP #### [address] Mean Corpuscular HGB Conc 32.6 g/dL Normal 32.5-35.6 [facility] Comment on above: Performed By: #### C MP, CBC, MG, TROP, BNP #### [address] Monocytes (Bld) [#/Vol] 1.5 10*3/uL High 0.0-0.8 [facility] Comment on above: Performed By: #### C MP, CBC, MG, TROP, BNP #### [address] Monocytes/100 WBC (Bld) 10.1 % Normal . [facility] Comment on above: Performed By: #### C MP, CBC, MG, TROP, BNP #### [address] Neutrophils (Bld) [#/Vol] 12.3 10*3/uL High 1.8-7.7 [facility] Comment on above: Performed By: #### C MP, CBC, MG, TROP, BNP #### [address] Neutrophils/100 WBC (Bld) 80.1 % Normal . [facility] Comment on above: Performed By: #### C MP, CBC, MG, TROP, BNP #### [address] Nucleated RBC/100 WBC (Bld) [Ratio] 0.1 % Normal 0-0.5 [facility] Comment on above: Performed By: #### C MP, CBC, MG, TROP, BNP #### [address] Platelet mean volume (Bld) [Entitic vol] 7.3 fL Normal 6.6-10.1 [facility] Comment on above: Performed By: #### C MP, CBC, MG, TROP, BNP #### [address] Platelets (Bld) [#/Vol] 249 10*3/uL Normal 150-450 [facility] Comment on above: Performed By: #### C MP, CBC, MG, TROP, BNP #### [address] RBC (Bld) [#/Vol] 4.32 10*6/uL Normal 3.90-5.60 [facility] Comment on above: Performed By: #### C MP, CBC, MG, TROP, BNP #### [address] WBC (Bld) [#/Vol] 15.3 10*3/uL High 4.5-11.0 [facility] Comment on above: Performed By: #### C MP, CBC, MG, TROP, BNP #### [address] Comprehensive Metabolic Pane babatunde 08-18-2020 Albumin [Mass/Vol] 2.7 g/dL Low 3.2-5.5 [facility] Comment on above: Performed By: #### C MP, CBC, MG, TROP, BNP #### [facility] [address] [place] [address] [place] Albumin/Globulin [Mass ratio] 0.6 {ratio} Normal [facility] Comment on above: Performed By: #### C MP, CBC, MG, TROP, BNP #### [facility] [address] ALP [Catalytic activity/Vol] 88 U/L Normal 32-92 [facility] Comment on above: Performed By: #### C MP, CBC, MG, TROP, BNP #### [facility] [address] ALT [Catalytic activity/Vol] 13 U/L Normal 10-60 [facility] Comment on above: Performed By: #### C MP, CBC, MG, TROP, BNP #### [facility] [address] [place] [address] AST [Catalytic activity/Vol] 16 U/L Normal 10-42 [facility] Comment on above: Performed By: #### C MP, CBC, MG, TROP, BNP #### [place] [address] [place] Bilirubin [Mass/Vol] 0.7 mg/dL Normal 0.3-1.2 [facility] Comment on above: Performed By: #### C MP, CBC, MG, TROP, BNP #### [facility] [address] [place] [address] [place] Calcium [Mass/Vol] 8.9 mg/dL Normal 8.2-10.2 [facility] Comment on above: Performed By: #### C MP, CBC, MG, TROP, BNP #### [facility] [address] [place] [address] [place] Chloride [Moles/Vol] 95 mmol/L Normal 95-114 [facility] Comment on above: Performed By: #### C MP, CBC, MG, TROP, BNP #### [facility] [address] [place] [address] [place] CO2 [Moles/Vol] 22.6 mmol/L Normal 22.0-30.0 [facility] Comment on above: Performed By: #### C MP, CBC, MG, TROP, BNP #### [address] Creatinine [Mass/Vol] 3.04 mg/dL High 0.64-1.27 [facility] Comment on above: Performed By: #### C MP, CBC, MG, TROP, BNP #### [address] Creatinine Clr Calc Pharmacy 38.57 [facility] Comment on above: Performed By: #### C MP, CBC, MG, TROP, BNP #### [address] Estimated GFR ( Camilla 26 [facility] Comment on above: Result Comment: GFR estimated reference range: According to KDOQI guidelines, <60 ml/min/1.73m2 is sufficient to diagnose a patient with chronic kidney disease. Performed By: #### C MP, CBC, MG, TROP, BNP #### [address] Estimated GFR (Non- Am 21 [facility] Comment on above: Performed By: #### C MP, CBC, MG, TROP, BNP #### [address] Globulin (S) [Mass/Vol] 4.4 g/dL [facility] Comment on above: Performed By: #### C MP, CBC, MG, TROP, BNP #### [address] Glucose [Mass/Vol] 512 mg/dL Off scale high 70-100 [facility] Comment on above: Result Comment: Resu lts called at 1659 on 08/18/20 Random Glucose Reference Range is dependent on time and content of last meal. Glucose of more than 200 mg/dL in a nonstressed, ambulatory subject supports the diagnosis of Diabetes Mellitus. ADA recommended reference range Performed By: #### C MP, CBC, MG, TROP, BNP #### [address] Potassium [Moles/Vol] 4.2 mmol/L Normal 3.5-5.1 [facility] Comment on above: Performed By: #### C MP, CBC, MG, TROP, BNP #### [facility] [address] Protein [Mass/Vol] 7.1 g/dL Normal 6.1-7.9 [facility] Comment on above: Performed By: #### C MP, CBC, MG, TROP, BNP #### [facility] [address] Sodium [Moles/Vol] 128 mmol/L Low 136-146 [facility] Comment on above: Performed By: #### C MP, CBC, MG, TROP, BNP #### [facility] [address] Urea nitrogen [Mass/Vol] 27 mg/dL High 9-23 [facility] Comment on above: Performed By: #### C MP, CBC, MG, TROP, BNP #### [address] Creatinine and Glomerular fi ltration rate.predicted panel (S/P/Bld)on 08-18-2020 Creatinine [Mass/Vol] 3.04 mg/dL 0.64-1.27 [facility] ECG 12 lead ECGon 08-18-2020 ECG 12 lead ECG [facility] Main [place] [address] [place] [address] Electrocardiograph Report Signed Patient: Rashard Lyman MR#: [id number] : 1960 Acct:[id number] Age/Sex: 60 / M ADM Date: 08/18/20 Loc: Room: [address] [place] [address] Type: ADM IN Attending Dr: Eugene Morel [...] was found Confirmed by ADRIA PABON DO ([id number]) on 08/19/2020 10:02:40 AM Referred By: Electronically Signed By:ADRIA PABON DO Transcribed By: MUS Dictated By: Adria Pabon DO 08/18/20 1539 Signed By: 08/19/20 1002 Normal [facility] Eosinophils Auto (Bld) [#/Vo l]on 08-18-2020 Eosinophils (Bld) [#/Vol] 0.5 10*3/uL 0.0-0.45 [facility] Eosinophils/100 WBC Auto (Bl d)on 08-18-2020 Eosinophils/100 WBC (Bld) 3.4 % [facility] Erythrocyte distribution wid th Auto (RBC) [Ratio]on 08-18-2020 Erythrocyte distribution width (RBC) [Ratio] 16.3 % 12.0-14.8 [facility] Estimated glomerular filtrat ion rate (GFR) non- Americanon 08-18-2020 GFR/1.73 sq M.predicted among non-blacks MDRD (S/P/Bld) [Vol rate/Area] 21 mL/Min [facility] Globulin Calc (S) [Mass/Vol] on 08-18-2020 Globulin (S) [Mass/Vol] 4.4 g/dL [facility] Glucose Glucometer (BldC) [M ass/Vol]on 08-18-2020 Glucose [Mass/Vol] 388 mg/dL [facility] Comment on above: Random Glucose Refer ence Range is dependent on time and content of last meal. Glucose of more than 200 mg/dL in a nonstressed, ambulatory subject supports the diagnosis of Diabetes Mellitus. Glucose Poct Glucometerson 0 08-18-2020 Glucose [Mass/Vol] 388 mg/dL Normal [facility] Comment on above: Result Comment: [place] om Glucose Reference Range is dependent on time and content of last meal. Glucose of more than 200 mg/dL in a nonstressed, ambulatory subject supports the diagnosis of Diabetes Mellitus. PERFORMED BY: [facility] [address] [place] [address] PATHOLOGIST [employer]IPPER T[employer]ER JORDAN RODRIGUEZ M.D. Performed By: #### C MP, CBC, MG, TROP, BNP #### [facility] [address] [place] [id number] [facility] Hematocrit Auto (Bld) [Volum e fraction]on 08-18-2020 Hematocrit (Bld) [Volume fraction] 36.1 % 38.8-50.0 [facility] Laboratory - Chemistry and C hemistry - challengeon 08-18-2020 CO2 [Moles/Vol] 25.7 mmol/L 24.0-29.0 [facility] HCO3 (Bld) [Moles/Vol] 24.3 mmol/L 23.0-29.0 [facility] Magnesium [Mass/Vol] 2.2 mg/dL 1.6-2.6 [facility] Natriuretic peptide B (Bld) [Mass/Vol] 48.0 pg/mL 5-100 [facility] Laboratory - Coagulationon 0 08-18-2020 PT Coag (PPP) [Time] 11.7 s 9.0-12.9 [facility] Laboratory - Hematology and Cell countson 08-18-2020 Nucleated RBC/100 WBC (Bld) [Ratio] 0.1 % 0-0.5 [facility] Lymphocytes Auto (Bld) [#/Vo l]on 08-18-2020 Lymphocytes (Bld) [#/Vol] 0.9 10*3/uL 1.00-4.8 [facility] Lymphocytes/100 WBC Auto (Bl d)on 08-18-2020 Lymphocytes/100 WBC (Bld) 6.1 % [facility] MCH Auto (RBC) [Entitic mass ]on 08-18-2020 MCH (RBC) [Entitic mass] 27.2 pg 27.5-35.2 [facility] MCHC Auto (RBC) [Mass/Vol]on 08-18-2020 MCHC (RBC) [Mass/Vol] 32.6 g/dL 32.5-35.6 [facility] MCV Auto (RBC) [Entitic vol] on 08-18-2020 MCV (RBC) [Entitic vol] 83.5 fL 83.5-101 [facility] Magnesiumon 08-18-2020 Magnesium [Mass/Vol] 2.2 mg/dL Normal 1.6-2.6 [facility] Comment on above: Result Comment: PERF ORMED BY: [facility] [address] [place] [address] PATHOLOGIST [employer]IPPER TENDER JORDAN RODRIGUEZ M.D. Performed By: #### C MP, CBC, MG, TROP, BNP #### [facility] [address] Monocytes Auto (Bld) [#/Vol] on 08-18-2020 Monocytes (Bld) [#/Vol] 1.5 10*3/uL 0.0-0.8 [facility] Monocytes/100 WBC Auto (Bld) on 08-18-2020 Monocytes/100 WBC (Bld) 10.1 % [facility] Neutrophils Auto (Bld) [#/Vo l]on 08-18-2020 Neutrophils (Bld) [#/Vol] 12.3 10*3/uL 1.8-7.7 [facility] Neutrophils/100 WBC Auto (Bl d)on 08-18-2020 Neutrophils/100 WBC (Bld) 80.1 % [facility] No Panel Informationon 08-18 Respiratory Panel (PCR) [facility] Blood Gas Critical Value See comment [facility] Comment on above: Critical Value fonseca d on: 08/18/2020 at 17:44 Blood Gas Sample Site Venous [facility] FiO2 21 % [facility] Venous Blood Base Excess -1.5 mmol/L -3.0-3.0 [facility] Venous Blood Oxygen Content 4.1 mmol/L 6.6-9.7 [facility] Venous Blood Oxygen Saturation 53.3 % 73.0-76.0 [facility] Venous Blood Partial Pressure CO2 45.2 mm[Hg] 38.0-50.0 [facility] Venous Blood Partial Pressure O2 24.4 mm[Hg] 35.0-45.0 [facility] Venous Blood pH 7.35 7.32-7.43 [facility] Estimated GFR () 26 mL/Min [facility] Comment on above: GFR estimated refere nce range: According to KDOQI guidelines, <60 ml/min/1.73m2 is sufficient to diagnose a patient with chronic kidney disease. Pharmacy Creatinine Clearance (Chem 38.57 [facility] Platelet mean volume Auto (B ld) [Entitic vol]on 08-18-2020 Platelet mean volume (Bld) [Entitic vol] 7.3 fL 6.6-10.1 [facility] Platelet poor plasma interna tional normalized ratio (INR) by coagulation assay (relaton 08-18-2020 INR Coag (PPP) [Relative time] 1.0 {INR} [facility] Comment on above: INR Therapeutic Rang [...] 08-18-2020 Platelets (Bld) [#/Vol] 249 10*3/uL 150-450 [facility] Protein [Mass/volume] in Ser um or Plasmaon 08-18-2020 Protein [Mass/Vol] 7.1 g/dL 6.1-7.9 [facility] RBC Auto (Bld) [#/Vol]on RBC (Bld) [#/Vol] 4.32 10*6/uL 3.90-5.60 [facility] Respiratory (Upper) Panel, P CRon 08-18-2020 Respiratory (Upper) Panel, PCR Adenovirus Not detected Bordetella parapertussis Not detected Chlamydia pneumoniae Not detected Coronavirus 229E Not detected Coronavirus HKU1 Not detected Coronavirus NL63 Not detected Coronavirus OC43 Not detected COVID19 Blank Space -- COVID19 Disclaimer This test was developed and its performance COVID19 Disclaimer characteristics determined by [employer], COVID19 Disclaimer Disease-2019 during the Public Health [...] sooner. [employer]19 [employer]. and validated at [address]. This has not been FDA cleared [...] COVID-19 Detected/Not Detected Not detected PERFORMED BY: [place] [id number] PATHOLOGIST [employer] CLIPPER TENDER JORDAN RODRIGUEZ M.D. [facility] Comment on above: Performed By: #### C MP, CBC, MG, TROP, BNP #### [facility] [address] [place] [id number] [facility] Serum or plasma alanine gomez otransferase measurement without P-5'-P (enzymatic activion 08-18-2020 ALT No additional P-5'-P [Catalytic activity/Vol] 13 U/L 10-60 [facility] Serum or plasma albumin/glob ulin mass ratioon 08-18-2020 Albumin/Globulin [Mass ratio] 0.6 {ratio} [facility] Serum or plasma alkaline kayode sphatase measurement (enzymatic activity/volume)on 08-18-2020 ALP [Catalytic activity/Vol] 88 U/L 32-92 [facility] Serum or plasma aspartate am inotransferase measurement (enzymatic activity/volume)on 08-18-2020 AST [Catalytic activity/Vol] 16 U/L 10-42 [facility] Serum or plasma calcium joel urement (mass/volume)on 08-18-2020 Calcium [Mass/Vol] 8.9 mg/dL 8.2-10.2 [facility] Serum or plasma cardiac trop onin I measurement (mass/volume)on 08-18-2020 Troponin I.cardiac [Mass/Vol] ng/mL 0-0.02 [facility] Comment on above: HÉCTOR MD Cut off value > or equal to 0.03 ng/mL in conjunction with clinical conditions of myocardial infarction.(www.escardio.org/guidelines) Serum or plasma chloride faraz surement (moles/volume)on 08-18-2020 Chloride [Moles/Vol] 95 mmol/L 95-114 [facility] Serum or plasma glucose joel urement (mass/volume)on 08-18-2020 Glucose [Mass/Vol] 512 mg/dL 70-100 [facility] Comment on above: Results calledat 165 9 on 08/18/20 ADA recommended reference rangeRandom Glucose Reference Range is dependent on time and content of last meal. Glucose of more than 200 mg/dL in a nonstressed, ambulatory subject supports the diagnosis of Diabetes Mellitus. Serum or plasma potassium me asurement (moles/volume)on 08-18-2020 Potassium [Moles/Vol] 4.2 mmol/L 3.5-5.1 [facility] Serum or plasma sodium measu rement (moles/volume)on 08-18-2020 Sodium [Moles/Vol] 128 mmol/L 136-146 [facility] Serum or plasma total biliru bin measurement (mass/volume)on 08-18-2020 Bilirubin [Mass/Vol] 0.7 mg/dL 0.3-1.2 [facility] Serum or plasma total carbon dioxide measurement (moles/volume)on 08-18-2020 CO2 [Moles/Vol] 22.6 mmol/L 22.0-30.0 [facility] Serum or plasma urea nitroge n measurement (mass/volume)on 08-18-2020 Urea nitrogen [Mass/Vol] 27 mg/dL 01-19 [facility] Liat Ag Negativeon 08-19-19 Liat Ag Negative Negative Normal Negative [facility] Comment on above: Result Comment: This is a duplicate Liat SARS Antigen (AGUSTINA) result to be used for statistical tracking purpose only. PERFORMED BY: [place] [address] PATHOLOGIST [employer] CLIPPER TENDER JORDAN RODRIGUEZ M.D. Performed By: #### C OVID-19 LIAT, SOFIANEG #### [facility] [address] Troponin I(TnI)on 08-18-2020 Troponin I.cardiac [Mass/Vol] ng/mL Normal 0-0.02 [facility] Comment on above: Result Comment: HÉCTOR MD Cut off value > or equal to 0.03 ng/mL in conjunction with clinical conditions of myocardial infarction. (www.escardio.org/guidelines) PERFORMED BY: [facility] [address] [place] [address] PATHOLOGIST [employer] CLIPPER TENDER JORDAN RODRIGUEZ M.D. Performed By: #### C MP, CBC, MG, TROP, BNP #### [facility] [address] Venous Blood [place] CO2 [Moles/Vol] 25.7 mmol/L Normal 24.0-29.0 [facility] Comment on above: Performed By: #### V BG #### Point of Care testing , HCO3 (Bld) [Moles/Vol] 24.3 mmol/L Normal 23.0-29.0 [facility] Comment on above: Performed By: #### V BG #### Point of Care testing , Respiratory Critical Normal [facility] Comment on above: Result Comment: Crit ical Value called on: 08/18/2020 at 17:44 PERFORMED BY: [address] [address] PATHOLOGIST [employer] CLIPPER TENDER JORDAN RODRIGUEZ M.D. Performed By: #### V BG #### Point of Care testing , VBG Base Excess -1.5 mmol/L Normal -3.0-3.0 [facility] Comment on above: Performed By: #### V BG #### Point of Care testing , VBG Draw Site Venous [facility] Comment on above: Performed By: #### V BG #### Point of Care testing , VBG Frac Inspired O2 21 % Normal [facility] Comment on above: Performed By: #### V BG #### Point of Care testing , VBG O2 Content 4.1 mmol/L Low 6.6-9.7 [facility] Comment on above: Performed By: #### V BG #### Point of Care testing , VBG Oxygen Saturation 53.3 % Off scale low 73.0-76.0 [facility] Comment on above: Performed By: #### V BG #### Point of Care testing , VBG PCO2 45.2 mm[Hg] Normal 38.0-50.0 [facility] Comment on above: Performed By: #### V BG #### Point of Care testing , VBG PH Venous PH 7.35 Normal 7.32-7.43 [facility] Comment on above: Performed By: #### V BG #### Point of Care testing , VBG PO2 24.4 mm[Hg] Low 35.0-45.0 [facility] Comment on above: Performed By: #### V BG #### Point of Care testing , XR chest 1V portableon 08-18 XR chest 1V portable [facility] Main [address] [address] XRay Report Signed Patient: Rashard Lyman MR#: [id number] : 1960 Acct:[id number] Age/Sex: 60 / M ADM Date: 08/18/20 Loc: ER Room: Type: [facility] ER Attending Dr: Ordering Provider: Mariana Basilio [...] Chitra Brantley M.D.08/18/2020 4:24 PM Dictation Location: [place] [address] Transcribed By: [facility] 08/18/201623 Dictated By: Chitra Brantley MD 08/18/201622 Signed By: 08/18/201623 [facility] CBC COMPLETE BLOOD COUNTon 0 07-22-2020 Erythrocyte distribution width (RBC) [Ratio] 15.0 % Normal 11.5-15.0 [facility] Comment on above: Order Comment: No: D o not add to previous draw Performed By: #### [id number] #### [facility] [address] [place] [address], [facility] Hematocrit (Bld) [Volume fraction] 32.4 % Low 39.0-50.0 [facility] Comment on above: Order Comment: No: D o not add to previous draw Performed By: #### [id number] #### [facility] [address] [place] [address], [place] Hemoglobin (Bld) [Mass/Vol] 9.5 g/dL Low 13.0-17.0 [facility] Comment on above: Order Comment: No: D o not add to previous draw Performed By: #### [id number] #### [facility] [address] [facility] [place] [address], [facility] MCH (RBC) [Entitic mass] 26.7 pg Low 27.0-33.0 [facility] Comment on above: Order Comment: No: D o not add to previous draw Performed By: #### [id number] #### [facility] [address] [place] [address], [facility] MCHC (RBC) [Mass/Vol] 29.3 g/dL Low 32.0-35.0 [facility] Comment on above: Order Comment: No: D o not add to previous draw Performed By: #### [id number] #### [facility] [address] [facility] [place] [address], [facility] MCV (RBC) [Entitic vol] 91.0 fL Normal 82.0-98.0 [facility] Comment on above: Order Comment: No: D o not add to previous draw Performed By: #### 8 [id number] #### [facility] [address] [facility]. [address] Nucleated RBC/100 WBC (Bld) [Ratio] 0 % Normal 0-0 [facility] Comment on above: Order Comment: No: D o not add to previous draw Performed By: #### [id number] #### [facility] [address] [facility] [place] [address], [facility] PLAT CNT 276 10*3/uL Normal 150-400 [facility] Comment on above: Order Comment: No: D o not add to previous draw Performed By: #### 8 [id number] #### [facility] [address] [facility] [place] [address], [facility] RBC (Bld) [#/Vol] 3.56 10*6/uL Low 4.20-5.70 [facility] Comment on above: Order Comment: No: D o not add to previous draw Performed By: #### [id number] #### [facility] [address] [place] [address], [facility] WBC (Bld) [#/Vol] 8.61 10*3/uL Normal 4.00-10.60 [facility] Comment on above: Order Comment: No: D o not add to previous draw Performed By: #### [id number] #### [facility] [address] [place] [address], [facility] COMP METABOLIC PANELon 07-22 Albumin [Mass/Vol] 2.7 g/dL Low 3.5-5.7 [facility] Comment on above: Order Comment: No: D o not add to previous draw Performed By: #### [id number] #### [facility] [address] [place] [address], [facility] ALKALINE PHOSPH 70 IU/L Normal 34-104 [facility] Comment on above: Order Comment: No: D o not add to previous draw Performed By: #### [id number] #### [facility] [address] [place] [address], [facility] ALT [Catalytic activity/Vol] 4 U/L Low 7-52 [facility] Comment on above: Order Comment: No: D o not add to previous draw Performed By: #### [id number] #### [facility] [address] [place] [address], [facility] AST [Catalytic activity/Vol] 15 U/L Normal 13-39 [facility] Comment on above: Order Comment: No: D o not add to previous draw Performed By: #### [id number] #### [facility] [address] [place] [address], [facility] Bilirubin [Mass/Vol] 0.2 mg/dL Low 0.3-1.0 [facility] Comment on above: Order Comment: No: D o not add to previous draw Performed By: #### [id number] #### [facility] [address] [place] [address], [place] Calcium [Mass/Vol] 8.9 mg/dL Normal 8.6-10.3 [facility] [facility] Comment on above: Order Comment: No: D o not add to previous draw Performed By: #### 8 [id number] #### [facility] [address] [place] [address], [place] Chloride [Moles/Vol] 109 mmol/L High 98-107 [facility] Comment on above: Order Comment: No: D o not add to previous draw Performed By: #### 8 5499 #### [facility] [address] [place] [address], [place] CO2 [Moles/Vol] 24 mmol/L Normal 21-31 [facility] Comment on above: Order Comment: No: D o not add to previous draw Performed By: #### 8 5499 #### [facility] [address] [place] [address], [place] Creatinine [Mass/Vol] 3.39 mg/dL High 0.70-1.30 [facility] Comment on above: Order Comment: No: D o not add to previous draw Performed By: #### 8 5499 #### [facility] [address] [place] [address], [place] eGFR- 23 ml/min/1.73sq m Abnormal >60 [facility] Comment on above: Order Comment: No: D o not add to previous draw Performed By: #### 8 5499 #### [facility] [address] [place] [address], [place] eGFR- non- 19 ml/min/1.73sq m Abnormal >60 [facility] Comment on above: Order Comment: No: D o not add to previous draw Performed By: #### 8 5499 #### [facility] [address] [place] [address], [place] Glucose [Mass/Vol] 90 mg/dL Normal 70-100 [facility] Comment on above: Order Comment: No: D o not add to previous draw Performed By: #### 8 5499 #### [facility] [address] [place] [address], [place] Potassium [Moles/Vol] 4.4 mmol/L Normal 3.5-5.1 [facility] Comment on above: Order Comment: No: D o not add to previous draw Performed By: #### 8 5499 #### [facility] [address] [place] [address], [place] Protein [Mass/Vol] 5.9 g/dL Low 6.0-8.3 [facility] Comment on above: Order Comment: No: D o not add to previous draw Performed By: #### 8 5499 #### [facility] [address] [place] [address], [place] Sodium [Moles/Vol] 140 mmol/L Normal 136-145 [facility] Comment on above: Order Comment: No: D o not add to previous draw Performed By: #### 8 5499 #### [facility] [address] [place] [address], [place] Urea nitrogen [Mass/Vol] 35 mg/dL High 7-25 [facility] Comment on above: Order Comment: No: D o not add to previous draw Performed By: #### 8 5499 #### [facility] [address] [place] [address], [place] POC GLUCOSE LABon 07-22-2020 Glucose [Mass/Vol] 192 mg/dL High 70-100 [facility] Comment on above: Performed By: #### 8 5499 #### [facility] [address] [place] [address], [place] Glucose [Mass/Vol] 95 mg/dL Normal 70-100 [facility] Comment on above: Performed By: #### 5 7307, 01954 #### [facility] [address] [place] [address], [place] Glucose [Mass/Vol] 123 mg/dL High 70-100 [facility] Comment on above: Performed By: #### 8 5499 ####[facility] [place] [address], [place] ARTERIAL BLOOD GAS WITH ICAo n 07-21-2020 BASE EXCESS -2 mmol/L Normal -2-3 [facility] Comment on above: Performed By: #### 8 5499 #### [facility] [address] [place] [address], [facility] [employer] FOCUS Normal [facility] Comment on above: Performed By: #### 8 [id number] #### [facility] [address] [place] [address], [place] HCO3 (Bld) [Moles/Vol] 24 mmol/L Normal 21-28 [facility] Comment on above: Performed By: #### 8 [id number] #### [facility] [address] [place] [address], [facility] IONIZED CALCIUM 1.25 mmol/L Normal 1.13-1.32 [facility] Comment on above: Performed By: #### 8 5499 #### [facility] [address] [place] [address], [place] LPM 4.0 LPM Normal [facility] Comment on above: Performed By: #### 8 5499 #### [facility] [address] [place] [address], [place] MODALITY BIPAP Normal [facility] Comment on above: Performed By: #### 8 5499 #### [facility] [address] [place] [address], [place] Oxygen (Bld) [Partial pressure] 91 mm[Hg] Normal 83-108 [facility] Comment on above: Performed By: #### 8 [id number] #### [facility] [address] [place] [address], [place] Oxygen saturation in Blood 95.9 % Normal 94.0-97.0 [facility] Comment on above: Performed By: #### 8 5499 #### [facility] [address] [place] [address], [place] PCO2 47 mmHg High 35-45 [facility] Comment on above: Performed By: #### 8 5499 #### [facility] [address] [place] [address], [place] PEEP 8.0 CMH20 Normal [facility] Comment on above: Performed By: #### 8 5499 #### [facility] [address] [place] [address], [place] pH (Bld) 7.32 [pH] Low 7.35-7.45 [facility] Comment on above: Performed By: #### 8 [id number] #### [facility] [address] [place] [address], [place] PRESSURE SUPPORT 16 Normal [facility] Comment on above: Performed By: #### 8 [id number] #### [facility] [address] [place] [address], [place] BASE EXCESS -3 mmol/L Low -2-3 [facility] Comment on above: Performed By: #### 3 0318 #### [facility] [address] [place] [address], [place] [employer] NASAL CANNULA Normal [facility] Comment on above: Performed By: #### 3 0318 #### [facility] [address] [place] [address], [place] HCO3 (Bld) [Moles/Vol] 25 mmol/L Normal 21-28 [facility] Comment on above: Performed By: #### 3 0318 #### [facility] [address] [place] [address], [facility] IONIZED CALCIUM 1.26 mmol/L Normal 1.13-1.32 [facility] Comment on above: Performed By: #### 3 0318 #### [facility] [address] [place] [address], [place] LPM 2.0 LPM Normal [facility] Comment on above: Performed By: #### 3 8 #### [facility] [address] [place] [address], [facility] Oxygen (Bld) [Partial pressure] 92 mm[Hg] Normal 83-108 [facility] Comment on above: Performed By: #### 3 8 #### [facility] [address] [place] [address], [facility] Oxygen saturation in Blood 95.7 % Normal 94.0-97.0 [facility] Comment on above: Performed By: #### 3 8 #### [facility] [address] [place] [address], [facility] PCO2 54 mmHg High 35-45 [facility] Comment on above: Performed By: #### 3 8 #### [facility] [address] [place] [address], [place] pH (Bld) 7.27 [pH] Low 7.35-7.45 [facility] Comment on above: Performed By: #### 3 8 #### [facility] [address] [place] [address], [place] BASIC METABOLIC PANELon 2 Calcium [Mass/Vol] 9.0 mg/dL Normal 8.6-10.3 [facility] Comment on above: Order Comment: No: D o not add to previous drawPt not in room rn will return when back. Performed By: #### 3 1944 #### [facility] [address] [place] [address], [facility] Chloride [Moles/Vol] 106 mmol/L Normal 98-107 [facility] Comment on above: Order Comment: No: D o not add to previous drawPt not in room rn will return when back. Performed By: #### 3 1943 #### [facility] [address] [place] [address], [facility] CO2 [Moles/Vol] 25 mmol/L Normal 21-31 [facility] Comment on above: Order Comment: No: D o not add to previous drawPt not in room rn will return when back. Performed By: #### 3 1943 #### [facility] [address] [place] [address], [facility] Creatinine [Mass/Vol] 3.75 mg/dL High 0.70-1.30 [facility] Comment on above: Order Comment: No: D o not add to previous drawPt not in room rn will return when back. Performed By: #### 3 1943 #### [facility] [address] [place] [address], [facility] eGFR- 20 ml/min/1.73sq m Abnormal >60 [facility] Comment on above: Order Comment: No: D o not add to previous drawPt not in room rn will return when back. Performed By: #### 3 1943 #### [facility] [address] [place] [address], [facility] eGFR- non- 17 ml/min/1.73sq m Abnormal >60 [facility] Comment on above: Order Comment: No: D o not add to previous drawPt not in room rn will return when back. Performed By: #### 3 1943 #### [facility] [address] [place] [address], [facility] Glucose [Mass/Vol] 132 mg/dL High 70-100 [facility] Comment on above: Order Comment: No: D o not add to previous drawPt not in room rn will return when back. Performed By: #### 3 1943 #### [facility] [address] [place] [address], [facility] Potassium [Moles/Vol] 5.0 mmol/L Normal 3.5-5.1 [facility] Comment on above: Order Comment: No: D o not add to previous drawPt not in room rn will return when back. Performed By: #### 3 1943 #### [facility] [address] [place] [address], [place] Sodium [Moles/Vol] 138 mmol/L Normal 136-145 [facility] Comment on above: Order Comment: No: D o not add to previous drawPt not in room rn will return when back. Performed By: #### 3 1943 #### [facility] [address] [place] [address], [facility] Urea nitrogen [Mass/Vol] 37 mg/dL High 7-25 [facility] Comment on above: Order Comment: No: D o not add to previous drawPt not in room rn will return when back. Performed By: #### 3 1943 #### [facility] [address] [place] [address], [facility] CBC COMPLETE BLOOD COUNTon 0 07-21-2020 Erythrocyte distribution width (RBC) [Ratio] 15.0 % Normal 11.5-15.0 [facility] Comment on above: Order Comment: No: D o not add to previous drawPt not in room rn will return when back. Performed By: #### 8 [id number] #### [facility] [address] [place] [address], [facility] Hematocrit (Bld) [Volume fraction] 33.9 % Low 39.0-50.0 [facility] Comment on above: Order Comment: No: D o not add to previous drawPt not in room rn will return when back. Performed By: #### 8 5499 #### [facility] [address] [place] [address], [facility] Hemoglobin (Bld) [Mass/Vol] 9.9 g/dL Low 13.0-17.0 [facility] Comment on above: Order Comment: No: D o not add to previous drawPt not in room rn will return when back. Performed By: #### 8 5499 #### [facility] [address] [facility] MCH (RBC) [Entitic mass] 26.9 pg Low 27.0-33.0 [facility] Comment on above: Order Comment: No: D o not add to previous drawPt not in room rn will return when back. Performed By: #### 8 5499 #### [facility] [address] MCHC (RBC) [Mass/Vol] 29.2 g/dL Low 32.0-35.0 [facility] Comment on above: Order Comment: No: D o not add to previous drawPt not in room rn will return when back. Performed By: #### 8 5499 #### [facility] [address] MCV (RBC) [Entitic vol] 92.1 fL Normal 82.0-98.0 [facility] Comment on above: Order Comment: No: D o not add to previous drawPt not in room rn will return when back. Performed By: #### 8 5499 #### [facility] [address] Nucleated RBC/100 WBC (Bld) [Ratio] 0 % Normal 0-0 [facility] Comment on above: Order Comment: No: D o not add to previous drawPt not in room rn will return when back. Performed By: #### 8 5499 #### [facility] [address] PLAT CNT 288 10*3/uL Normal 150-400 [facility] Comment on above: Order Comment: No: D o not add to previous drawPt not in room rn will return when back. Performed By: #### 8 5499 #### [facility] [address] [place] [address], [facility] RBC (Bld) [#/Vol] 3.68 10*6/uL Low 4.20-5.70 [facility] Comment on above: Order Comment: No: D o not add to previous drawPt not in room rn will return when back. Performed By: #### 8 5499 #### [facility] [address] [place] [address], [facility] WBC (Bld) [#/Vol] 9.51 10*3/uL Normal 4.00-10.60 [facility] Comment on above: Order Comment: No: D o not add to previous drawPt not in room rn will return when back. Performed By: #### 8 5499 #### [id number] [place] [address] CT CHEST WO CONTRASTon 07-21 CT CHEST WO CONTRAST [facility] Department of Radiology [address] [place] [id number] Patient Name: RASHARD LYMAN : 1960 Sex: M Age: Race: White Pt. Location: [id number] Patient Status: I Ordered Date: 07/21/2020 6:00:00 [...] pneumonia. Electronically signed: Manuel Saldaña. Transcribed by: [id number], User Resident: Electronically Signed by: MANUEL SALDAÑA @ 07/21/2020 08:38 AM Normal [facility] Comment on above: Order Comment: Left Peural Effusion POC GLUCOSE LABon 07-21-2020 Glucose [Mass/Vol] 134 mg/dL High 70-100 [facility] Comment on above: Performed By: #### 5 0103 #### [place] [address] [place] [address], [place] Glucose [Mass/Vol] 88 mg/dL Normal 70-100 [facility] Comment on above: Performed By: #### 8 5499 #### [facility] [address] [place] [address], [place] Glucose [Mass/Vol] 110 mg/dL High 70-100 [facility] Comment on above: Performed By: #### 8 5499 #### [facility] [address] [place] [address], [place] Glucose [Mass/Vol] 118 mg/dL High 70-100 [facility] Comment on above: Performed By: #### 5 7307, [address]1334 #### [facility] [address] [place] [address], [place] Glucose [Mass/Vol] 137 mg/dL High 70-100 [facility] Comment on above: Performed By: #### 5 7307, 31016 #### [facility] [address] [place] [address], [place] BASIC METABOLIC PANELon 03-2 Calcium [Mass/Vol] 8.4 mg/dL Low 8.6-10.3 [facility] Comment on above: Order Comment: No: D o not add to previous draw Performed By: #### 8 5499 #### [facility] [address] [place] [address], [place] Chloride [Moles/Vol] 107 mmol/L Normal 98-107 [facility] Comment on above: Order Comment: No: D o not add to previous draw Performed By: #### 8 5499 #### [facility] [address] [place] [address], [place] CO2 [Moles/Vol] 23 mmol/L Normal 21-31 [facility] Comment on above: Order Comment: No: D o not add to previous draw Performed By: #### 8 5499 #### [facility] [address] [place] [address], [place] Creatinine [Mass/Vol] 3.95 mg/dL High 0.70-1.30 [facility] Comment on above: Order Comment: No: D o not add to previous draw Performed By: #### 8 5499 #### [facility] [address] [place] [address], [place] eGFR- 19 ml/min/1.73sq m Abnormal >60 [facility] Comment on above: Order Comment: No: D o not add to previous draw Performed By: #### 8 5499 #### [facility] [address] [place] [address], [place] eGFR- non- 16 ml/min/1.73sq m Abnormal >60 [facility] Comment on above: Order Comment: No: D o not add to previous draw Performed By: #### 8 5499 #### [facility] [address] [place] [address], [place] Glucose [Mass/Vol] 110 mg/dL High 70-100 [facility] Comment on above: Order Comment: No: D o not add to previous draw Performed By: #### 8 5499 #### [facility] [address] [place] [address], [place] Potassium [Moles/Vol] 4.9 mmol/L Normal 3.5-5.1 [facility] Comment on above: Order Comment: No: D o not add to previous draw Performed By: #### 8 5499 #### [facility] [address] [place] [address], [place] Sodium [Moles/Vol] 137 mmol/L Normal 136-145 [facility] Comment on above: Order Comment: No: D o not add to previous draw Performed By: #### 8 5499 #### [facility] [address] [place] [address], [place] Urea nitrogen [Mass/Vol] 37 mg/dL High 7-25 [facility] Comment on above: Order Comment: No: D o not add to previous draw Performed By: #### 8 5499 #### [facility] [address] [facility] [place] [address], [facility] CBC W/DIFFon 07-20-2020 ABS IMM GRANS 0.1 10*3/uL Normal 0.0-0.2 [facility] Comment on above: Order Comment: No: D o not add to previous draw Performed By: #### 8 5499 #### [facility] [address] [facility] [place] [address], [facility] ABS NEUTROPHILS 5.9 10*3/uL Normal 1.6-7.6 [facility] Comment on above: Order Comment: No: D o not add to previous draw Performed By: #### 8 5499 #### [facility] [address] [facility] [place] [address], [facility] Basophils (Bld) [#/Vol] 0.1 10*3/uL Normal 0.0-0.2 [facility] Comment on above: Order Comment: No: D o not add to previous draw Performed By: #### 8 5499 #### [facility] [address] [facility] [place] [address], [facility] Basophils/100 WBC (Bld) 1.0 % Normal 0.0-1.0 [facility] Comment on above: Order Comment: No: D o not add to previous draw Performed By: #### 8 5499 #### [facility] [address] [place] [address], [facility] Eosinophils (Bld) [#/Vol] 0.4 10*3/uL Normal 0.0-0.5 [facility] Comment on above: Order Comment: No: D o not add to previous draw Performed By: #### 8 5499 #### [facility] [address] [place] [address], [facility] Eosinophils/100 WBC (Bld) 5.1 % Normal 0.0-6.0 [facility] Comment on above: Order Comment: No: D o not add to previous draw Performed By: #### 8 5499 #### [facility] [address] [facility]. [address] Erythrocyte distribution width (RBC) [Ratio] 15.4 % High 11.5-15.0 [facility] Comment on above: Order Comment: No: D o not add to previous draw Performed By: #### 8 5499 #### [facility] [address] Hematocrit (Bld) [Volume fraction] 35.7 % Low 39.0-50.0 [facility] Comment on above: Order Comment: No: D o not add to previous draw Performed By: #### 8 5499 #### [facility] [address] Hemoglobin (Bld) [Mass/Vol] 10.3 g/dL Low 13.0-17.0 [facility] Comment on above: Order Comment: No: D o not add to previous draw Performed By: #### 8 5499 #### [facility] [address] [facility]. [address] IMM PLATELET FRAC 0.4 % Low 0.8-6.3 [facility] Comment on above: Order Comment: No: D o not add to previous draw Performed By: #### 8 5499 #### [facility] [address] [facility] [place] [address], [facility] IMMATURE GRANS 1.1 % High 0.0-1.0 [facility] Comment on above: Order Comment: No: D o not add to previous draw Performed By: #### 8 5499 #### [facility] [address] [place] [address], [facility] Lymphocytes (Bld) [#/Vol] 0.8 10*3/uL Low 1.2-4.0 [facility] Comment on above: Order Comment: No: D o not add to previous draw Performed By: #### 8 5499 #### [facility] [address] [facility] [place] [address], [facility] Lymphocytes/100 WBC (Bld) 9.3 % Low 20.0-45.0 [facility] Comment on above: Order Comment: No: D o not add to previous draw Performed By: #### 8 [id number] #### [facility] [address] [facility] [place] [address], [facility] MCH (RBC) [Entitic mass] 27.4 pg Normal 27.0-33.0 [facility] Comment on above: Order Comment: No: D o not add to previous draw Performed By: #### 8 5499 #### [facility] [address] [place] [address], [facility] MCHC (RBC) [Mass/Vol] 28.9 g/dL Low 32.0-35.0 [facility] Comment on above: Order Comment: No: D o not add to previous draw Performed By: #### 8 [id number] #### [facility] [address] [facility] [place] [address], [facility] MCV (RBC) [Entitic vol] 94.9 fL Normal 82.0-98.0 [facility] Comment on above: Order Comment: No: D o not add to previous draw Performed By: #### 8 5499 #### [facility] [address] [place] [address], [facility] Monocytes (Bld) [#/Vol] 1.1 10*3/uL High 0.1-1.0 [facility] Comment on above: Order Comment: No: D o not add to previous draw Performed By: #### 8 [id number] #### [facility] [address] [place] [address], [facility] MONOS 12.9 % High 5.0-12.0 [facility] Comment on above: Order Comment: No: D o not add to previous draw Performed By: #### 8 5499 #### [facility] [address] [place] [address], [place] Neutrophils/100 WBC (Bld) 70.6 % Normal 40.0-72.0 [facility] Comment on above: Order Comment: No: D o not add to previous draw Performed By: #### 8 [id number] #### [facility] [address] [place] [address], [place] Nucleated RBC/100 WBC (Bld) [Ratio] 0 % Normal 0-0 The [facility] Comment on above: Order Comment: No: D o not add to previous draw Performed By: #### 8 [id number] #### [facility] [address] [place] [address], [place] PLAT ESTIMATE Normal Normal [facility] Comment on above: Order Comment: No: D o not add to previous draw Result Comment: EDTA smear shows platelet clumping, see platelet estimate Performed By: #### 8 [id number] #### [facility] [address] [place] [address], [place] RBC (Bld) [#/Vol] 3.76 10*6/uL Low 4.20-5.70 [facility] Comment on above: Order Comment: No: D o not add to previous draw Performed By: #### 8 [id number] #### [facility] [address] [place] [address], [place] WBC (Bld) [#/Vol] 8.30 10*3/uL Normal 4.00-10.60 [facility] Comment on above: Order Comment: No: D o not add to previous draw Performed By: #### 8 [id number] #### [facility] [address] [place] [address], [place] POC GLUCOSE LABon 07-20-2020 Glucose [Mass/Vol] 110 mg/dL High 70-100 [facility] Comment on above: Performed By: #### 5 0103 #### [facility] [address] [facility] [address], [facility] Glucose [Mass/Vol] 124 mg/dL High 70-100 [facility] Comment on above: Performed By: #### 5 0103 #### [facility] [address] [facility] [address], [facility] Glucose [Mass/Vol] 111 mg/dL High 70-100 [facility] Comment on above: Performed By: #### 5 7307, 58130 #### [facility] [address] [facility] [address], [facility] PORTABLE CHEST 1 VIEWon 06-28 PORTABLE CHEST 1 VIEW [facility] Department of Radiology [address] [place] [phone] Patient Name: RASHARD LYMAN : 1960 Sex: M Age: Race: White Pt. Location: [id number] Patient Status: I Ordered Date: 07/20/2020 6:00:00 [...] unchanged Electronically signed: Manuel Saldaña. Transcribed by: [email or web address], User Resident: Electronically Signed by: MANUEL SALDAÑA @ 07/20/2020 09:07 AM Normal [facility] Comment on above: Order Comment: Evalu ate for Effusion BASIC METABOLIC PANELon 03-2 Calcium [Mass/Vol] 8.4 mg/dL Low 8.6-10.3 [facility] Comment on above: Order Comment: No: D o not add to previous draw Performed By: #### 3 1943 #### [facility] [address] [place] [address], [place] Chloride [Moles/Vol] 104 mmol/L Normal 98-107 [facility] Comment on above: Order Comment: No: D o not add to previous draw Performed By: #### 3 1943 #### [facility] [address] [place] [address], [place] CO2 [Moles/Vol] 24 mmol/L Normal 21-31 [facility] Comment on above: Order Comment: No: D o not add to previous draw Performed By: #### 3 1943 #### [facility] [address] [place] [address], [place] Creatinine [Mass/Vol] 4.15 mg/dL High 0.70-1.30 [facility] Comment on above: Order Comment: No: D o not add to previous draw Performed By: #### 3 1943 #### [facility] [address] [place] [address], [place] eGFR- 18 ml/min/1.73sq m Abnormal >60 [facility] Comment on above: Order Comment: No: D o not add to previous draw Performed By: #### 3 1943 #### [facility] [address] [place] [address], [place] eGFR- non- 15 ml/min/1.73sq m Abnormal >60 [facility] Comment on above: Order Comment: No: D o not add to previous draw Performed By: #### 3 1943 #### [facility] [address] [place] [address], [place] Glucose [Mass/Vol] 180 mg/dL High 70-100 [facility] Comment on above: Order Comment: No: D o not add to previous draw Performed By: #### 3 1943 #### [facility] [address] [place] [address], [place] Potassium [Moles/Vol] 4.4 mmol/L Normal 3.5-5.1 [facility] Comment on above: Order Comment: No: D o not add to previous draw Performed By: #### 3 1943 #### [facility] [address] [place] [address], [place] Sodium [Moles/Vol] 135 mmol/L Low 136-145 [facility] Comment on above: Order Comment: No: D o not add to previous draw Performed By: #### 3 1943 #### [facility] [address] [place] [address], [place] Urea nitrogen [Mass/Vol] 37 mg/dL High 7-25 [facility] Comment on above: Order Comment: No: D o not add to previous draw Performed By: #### 3 1943 #### [facility] [address] [place] [address], [place] CBC COMPLETE BLOOD COUNTon 0 07-19-2020 Erythrocyte distribution width (RBC) [Ratio] 14.8 % Normal 11.5-15.0 [facility] Comment on above: Order Comment: No: D o not add to previous draw Performed By: #### 8 [id number] #### [facility] [address] [place] [address], [facility] Hematocrit (Bld) [Volume fraction] 30.9 % Low 39.0-50.0 [facility] Comment on above: Order Comment: No: D o not add to previous draw Performed By: #### 8 [id number] #### [facility] [address] [place] [address], [facility] Hemoglobin (Bld) [Mass/Vol] 9.0 g/dL Low 13.0-17.0 [facility] Comment on above: Order Comment: No: D o not add to previous draw Performed By: #### 8 [id number] #### [facility] [address] [place] [address], [facility] MCH (RBC) [Entitic mass] 26.6 pg Low 27.0-33.0 [facility] Comment on above: Order Comment: No: D o not add to previous draw Performed By: #### 8 [id number] #### [facility] [address] [place] [id number], [facility] MCHC (RBC) [Mass/Vol] 29.1 g/dL Low 32.0-35.0 [facility] Comment on above: Order Comment: No: D o not add to previous draw Performed By: #### 8 [id number] #### [facility] [address] [place] [address], [place] MCV (RBC) [Entitic vol] 91.4 fL Normal 82.0-98.0 [facility] Comment on above: Order Comment: No: D o not add to previous draw Performed By: #### 8 [id number] #### [facility] [address] [place] [address], [place] Nucleated RBC/100 WBC (Bld) [Ratio] 0 % Normal 0-0 [facility] Comment on above: Order Comment: No: D o not add to previous draw Performed By: #### 8 [id number] #### [facility] [address] [place] [address], [place] PLAT CNT 279 10*3/uL Normal 150-400 [facility] Comment on above: Order Comment: No: D o not add to previous draw Performed By: #### 8 5499 #### [facility] [address] [place] [address], [facility] RBC (Bld) [#/Vol] 3.38 10*6/uL Low 4.20-5.70 [facility] Comment on above: Order Comment: No: D o not add to previous draw Performed By: #### 8 5499 #### [facility] [address] [place] [address], [facility] WBC (Bld) [#/Vol] 6.73 10*3/uL Normal 4.00-10.60 [facility] Comment on above: Order Comment: No: D o not add to previous draw Performed By: #### 8 [id number] #### [facility] [address] [place] [address], [facility] Operative Reporton Operative Report MR#: [id number] I [facility] Pt. Name: [facility] Room #: [id number] Discharge Date: Birthdate: 1960 OPERATIVE REPORT DATE OF SURGERY: 07/19/2020 SURGEON: Nima Wynne MD Operative Note Medical Thoracoscopy, lysis of adhesions, pleural biopsy Procedure Date: 07/19/2020 Procedure: Medical Thoracoscopy, pleural biopsies, lysis of adhesions, and chest tube placement Preoperative Diagnosis: Loculated pleural effusion Post-operative Diagnosis: same Surgeons: Nima Wynne MD Information Services Consultant: Davis Pham MD Type of Anesthesia: MAC [...] Wynne MD Date Trans: 07/19/2020 02:43 P/ [id number] cc: Jose Juarez D.O. [address] [facility] [place] [address] [facility] POC GLUCOSE LABon 07-19-2020 Glucose [Mass/Vol] 219 mg/dL High 70-100 [facility] Comment on above: Performed By: #### 5 7307, 88090 #### [facility] [address] [facility] [address], [facility] Glucose [Mass/Vol] 152 mg/dL High 70-100 [facility] Comment on above: Performed By: #### 5 7307, 78906 #### [facility] [address] [facility] [address], [facility] Glucose [Mass/Vol] 183 mg/dL High 70-100 [facility] Comment on above: Performed By: #### 5 0103 #### [facility] [address] [facility] [address], [facility] Glucose [Mass/Vol] 206 mg/dL High 70-100 [facility] Comment on above: Performed By: #### 8 5499 ####[facility] [facility] [address], [facility] Glucose [Mass/Vol] 179 mg/dL High 70-100 [facility] Comment on above: Performed By: #### 5 0103 #### [facility] [address] [facility] [address], [facility] PORTABLE CHEST 1 VIEWon 06-28 PORTABLE CHEST 1 VIEW [facility] Department of Radiology [address] [place] [address] Patient Name: RASHARD LYMAN : 1960 Sex: M Age: Race: White Pt. Location: [address] [place] [address] Patient Status: I Ordered Date: 07/19/2020 2:20:00 [...] infiltration Electronically signed: Pedro Baldwin. Transcribed by: [email or web address], User Resident: PEDRO BALDWIN Electronically Signed by: PEDRO BALDWIN @ 07/19/2020 03:03 PM I personally read this/these film(s) with this resident Normal The [facility] Comment on above: Order Comment: Check Chest Tube Position BASIC METABOLIC PANELon 06-28 Calcium [Mass/Vol] 8.4 mg/dL Low 8.6-10.3 [facility] Comment on above: Order Comment: No: D o not add to previous draw Performed By: #### 8 [id number] #### [address] [place] [address], [place] Chloride [Moles/Vol] 105 mmol/L Normal 98-107 The [facility] Comment on above: Order Comment: No: D o not add to previous draw Performed By: #### 8 [id number] #### [facility] [address] [place] [address], [place] CO2 [Moles/Vol] 25 mmol/L Normal 21-31 The [facility] Comment on above: Order Comment: No: D o not add to previous draw Performed By: #### 8 [id number] #### [facility] [address] [place] [address], [place] Creatinine [Mass/Vol] 4.54 mg/dL High 0.70-1.30 The [facility] Comment on above: Order Comment: No: D o not add to previous draw Performed By: #### 8 5499 #### [facility] [address] [place] [address], [place] eGFR- 16 ml/min/1.73sq m Abnormal >60 [facility] Comment on above: Order Comment: No: D o not add to previous draw Performed By: #### 8 5499 #### [facility] [address] [place] [address], [place] eGFR- non- 13 ml/min/1.73sq m Abnormal >60 The [facility] Comment on above: Order Comment: No: D o not add to previous draw Performed By: #### 8 5499 #### [facility] [address] [place] [address], [place] Glucose [Mass/Vol] 118 mg/dL High 70-100 The [facility] Comment on above: Order Comment: No: D o not add to previous draw Performed By: #### 8 5499 #### [facility] [address] [place] [address], [place] Potassium [Moles/Vol] 4.5 mmol/L Normal 3.5-5.1 The [facility] Comment on above: Order Comment: No: D o not add to previous draw Performed By: #### 8 5499 #### [facility] [address] [facility] Sodium [Moles/Vol] 137 mmol/L Normal 136-145 [facility] Comment on above: Order Comment: No: D o not add to previous draw Performed By: #### 8 5499 #### [facility] [address] Urea nitrogen [Mass/Vol] 40 mg/dL High 7-25 [facility] Comment on above: Order Comment: No: D o not add to previous draw Performed By: #### 8 5499 #### [facility] [address] CBC W/DIFFon 07-18-2020 ABS IMM GRANS 0.1 10*3/uL Normal 0.0-0.2 [facility] Comment on above: Order Comment: No: D o not add to previous draw Performed By: #### 8 5499 #### [facility] [address] ABS NEUTROPHILS 5.0 10*3/uL Normal 1.6-7.6 [facility] Comment on above: Order Comment: No: D o not add to previous draw Performed By: #### 8 5499 #### [facility] [address] [facility]. [address] Basophils (Bld) [#/Vol] 0.0 10*3/uL Normal 0.0-0.2 The [facility] Comment on above: Order Comment: No: D o not add to previous draw Performed By: #### 8 5499 #### [facility] [address] [place] [address], [facility] Basophils/100 WBC (Bld) 0.4 % Normal 0.0-1.0 The [facility] Comment on above: Order Comment: No: D o not add to previous draw Performed By: #### 8 5499 #### [facility] [address] [place] [address], [facility] Eosinophils (Bld) [#/Vol] 0.6 10*3/uL High 0.0-0.5 [facility] Comment on above: Order Comment: No: D o not add to previous draw Performed By: #### 8 5499 #### [facility] [address] [place] [address], [facility] Eosinophils/100 WBC (Bld) 6.8 % High 0.0-6.0 The [facility] Comment on above: Order Comment: No: D o not add to previous draw Performed By: #### 8 [id number] #### [facility] [address] [place] [address], [facility] Erythrocyte distribution width (RBC) [Ratio] 14.8 % Normal 11.5-15.0 The [facility] Comment on above: Order Comment: No: D o not add to previous draw Performed By: #### 8 5499 #### [facility] [address] [place] [address], [facility] Hematocrit (Bld) [Volume fraction] 31.9 % Low 39.0-50.0 The [facility] Comment on above: Order Comment: No: D o not add to previous draw Performed By: #### 8 5499 #### [facility] [address] [place] [address], [facility] Hemoglobin (Bld) [Mass/Vol] 9.4 g/dL Low 13.0-17.0 The [facility] Comment on above: Order Comment: No: D o not add to previous draw Performed By: #### 8 [id number] #### [facility] [address] [place] [address], [facility] IMMATURE GRANS 1.7 % High 0.0-1.0 The [facility] Comment on above: Order Comment: No: D o not add to previous draw Performed By: #### 8 [id number] #### [facility] [address] [place] [address], [facility] Lymphocytes (Bld) [#/Vol] 1.2 10*3/uL Normal 1.2-4.0 The [facility] Comment on above: Order Comment: No: D o not add to previous draw Performed By: #### 8 [id number] #### [facility] [address] [place] [id number], [facility] Lymphocytes/100 WBC (Bld) 14.8 % Low 20.0-45.0 The [facility] Comment on above: Order Comment: No: D o not add to previous draw Performed By: #### 8 [id number] #### [facility] [address] [place] [address], [facility] MCH (RBC) [Entitic mass] 26.9 pg Low 27.0-33.0 The [facility] Comment on above: Order Comment: No: D o not add to previous draw Performed By: #### 8 [id number] #### [facility] [address] [facility] [place] [address], [facility] MCHC (RBC) [Mass/Vol] 29.5 g/dL Low 32.0-35.0 The [facility] Comment on above: Order Comment: No: D o not add to previous draw Performed By: #### 8 [id number] #### [facility] [address] [facility] [place] [address], [facility] MCV (RBC) [Entitic vol] 91.1 fL Normal 82.0-98.0 The [facility] Comment on above: Order Comment: No: D o not add to previous draw Performed By: #### 8 [id number] #### [facility] [address] [place] [id number], [facility] Monocytes (Bld) [#/Vol] 1.1 10*3/uL High 0.1-1.0 The [facility] Comment on above: Order Comment: No: D o not add to previous draw Performed By: #### 8 [id number] #### [facility] [address] [place] [address], [place] MONOS 13.4 % High 5.0-12.0 [facility] Comment on above: Order Comment: No: D o not add to previous draw Performed By: #### 8 5499 #### [facility] [address] [place] [address], [place] Neutrophils/100 WBC (Bld) 62.9 % Normal 40.0-72.0 The [facility] Comment on above: Order Comment: No: D o not add to previous draw Performed By: #### 8 [id number] #### [facility] [address] [place] [address], [place] Nucleated RBC/100 WBC (Bld) [Ratio] 0 % Normal 0-0 The [facility] Comment on above: Order Comment: No: D o not add to previous draw Performed By: #### 8 [id number] #### [facility] [address] [place] [address], [place] PLAT CNT 296 10*3/uL Normal 150-400 The [facility] Comment on above: Order Comment: No: D o not add to previous draw Performed By: #### 8 5499 #### [facility] [address] [place] [address], [place] RBC (Bld) [#/Vol] 3.50 10*6/uL Low 4.20-5.70 The [facility] Comment on above: Order Comment: No: D o not add to previous draw Performed By: #### 8 [id number] #### [facility] [address] [place] [address], [place] WBC (Bld) [#/Vol] 8.03 10*3/uL Normal 4.00-10.60 The [facility] Comment on above: Order Comment: No: D o not add to previous draw Performed By: #### 8 [id number] #### [facility] [address] [place] [address], [place] POC GLUCOSE LABon 07-18-2020 Glucose [Mass/Vol] 192 mg/dL High 70-100 The [facility] Comment on above: Performed By: #### 5 7307, 01167 #### [facility] [address] [place] [address], [place] Glucose [Mass/Vol] 153 mg/dL High 70-100 The [facility] Comment on above: Performed By: #### 5 7307, 02953 #### [facility] [address] [place] [address], [place] Glucose [Mass/Vol] 80 mg/dL Normal 70-100 The [facility] Comment on above: Performed By: #### 5 7307, 69835 #### [facility] [address] [place] [address], [place] Glucose [Mass/Vol] 48 mg/dL Critically low 70-100 Th e [facility] Comment on above: Order Comment: Left Peural Effusion Performed By: #### 8 [id number] ####[facility] [place] [address], [place] Glucose [Mass/Vol] 120 mg/dL High 70-100 The [facility] Comment on above: Performed By: #### 5 0103 #### [facility] [address] [place] [address], [place] Glucose [Mass/Vol] 112 mg/dL High 70-100 The [facility] Comment on above: Performed By: #### 5 7307, 26919 #### [facility] [address] [place] [address], [place] POC SARS COV2 ANTIGEN NEGATI VEon 07-18-2020 POC SARS COV2 ANTIGEN NEG CANCELED Normal NEGATIVE The [facility] Comment on above: Result Comment: The released value NEGATIVE was canceled by ULISES on 07/19/2020 07:11 Performed By: #### 3 1943 #### [facility] [address] POC SARS COV2 ANTIGEN NEG Negative Normal NEGATIVE The [facility] Comment on above: Result Comment: Nega tive [...] Accreditation. Performed By: #### 8 [id number] #### [facility] [address] BASIC METABOLIC PANELon 03-2 Calcium [Mass/Vol] 8.2 mg/dL Low 8.6-10.3 The [facility] Comment on above: Order Comment: No: D o not add to previous draw Performed By: #### 3 1943 #### [facility] [address] [place] [address], [facility] Chloride [Moles/Vol] 101 mmol/L Normal 98-107 The [facility] Comment on above: Order Comment: No: D o not add to previous draw Performed By: #### 3 1943 #### [facility] [address] [place] [address], [place] CO2 [Moles/Vol] 25 mmol/L Normal 21-31 The [facility] Comment on above: Order Comment: No: D o not add to previous draw Performed By: #### 3 1943 #### [facility] [address] [place] [address], [place] Creatinine [Mass/Vol] 3.64 mg/dL High 0.70-1.30 The [facility] Comment on above: Order Comment: No: D o not add to previous draw Performed By: #### 3 1943 #### [facility] [address] [place] [address], [place] eGFR- 21 ml/min/1.73sq m Abnormal >60 The [facility] Comment on above: Order Comment: No: D o not add to previous draw Performed By: #### 3 1943 #### [facility] [address] [place] [address], [place] eGFR- non- 17 ml/min/1.73sq m Abnormal >60 The [facility] Comment on above: Order Comment: No: D o not add to previous draw Performed By: #### 3 1943 #### [facility] [address] [place] [address], [place] Glucose [Mass/Vol] 124 mg/dL High 70-100 The [facility] Comment on above: Order Comment: No: D o not add to previous draw Performed By: #### 3 1943 #### [facility] [address] [place] [address], [place] Potassium [Moles/Vol] 4.3 mmol/L Normal 3.5-5.1 The [facility] Comment on above: Order Comment: No: D o not add to previous draw Performed By: #### 3 1943 #### [facility] [address] [place] [address], [place] Sodium [Moles/Vol] 134 mmol/L Low 136-145 The [facility] Comment on above: Order Comment: No: D o not add to previous draw Performed By: #### 3 1943 #### [facility] [address] [facility] [place] [address], [facility] Urea nitrogen [Mass/Vol] 36 mg/dL High 7-25 The [facility] Comment on above: Order Comment: No: D o not add to previous draw Performed By: #### 3 1943 #### [facility] [address] [facility] [place] [address], [facility] CBC W/DIFFon 07-17-2020 ABS IMM GRANS 0.2 10*3/uL Normal 0.0-0.2 [facility] Comment on above: Order Comment: No: D o not add to previous draw Performed By: #### 8 [id number] #### [facility] [address] [place] [address], [facility] ABS NEUTROPHILS 5.8 10*3/uL Normal 1.6-7.6 [facility] Comment on above: Order Comment: No: D o not add to previous draw Performed By: #### 8 [id number] #### [facility] [address] [facility] [place] [address], [facility] Basophils (Bld) [#/Vol] 0.1 10*3/uL Normal 0.0-0.2 [facility] Comment on above: Order Comment: No: D o not add to previous draw Performed By: #### 8 [id number] #### [facility] [address] [facility] [place] [address], [facility] Basophils/100 WBC (Bld) 0.6 % Normal 0.0-1.0 [facility] Comment on above: Order Comment: No: D o not add to previous draw Performed By: #### 8 [id number] #### [facility] [address] [facility] [place] [address], [facility] Eosinophils (Bld) [#/Vol] 0.6 10*3/uL High 0.0-0.5 [facility] Comment on above: Order Comment: No: D o not add to previous draw Performed By: #### 8 [id number] #### [facility] [address] [place] [address], [facility] Eosinophils/100 WBC (Bld) 7.0 % High 0.0-6.0 [facility] Comment on above: Order Comment: No: D o not add to previous draw Performed By: #### 8 [id number] #### [facility] [address] [place] [address], [facility] Erythrocyte distribution width (RBC) [Ratio] 14.8 % Normal 11.5-15.0 [facility] Comment on above: Order Comment: No: D o not add to previous draw Performed By: #### 8 [id number] #### [facility] [address] [place] [address], [facility] Hematocrit (Bld) [Volume fraction] 30.0 % Low 39.0-50.0 [facility] Comment on above: Order Comment: No: D o not add to previous draw Performed By: #### 8 [id number] #### [facility] [address] [place] [address], [facility] Hemoglobin (Bld) [Mass/Vol] 9.2 g/dL Low 13.0-17.0 [facility] Comment on above: Order Comment: No: D o not add to previous draw Performed By: #### 8 [id number] #### [facility] [address] [place] [address], [facility] IMMATURE GRANS 1.7 % High 0.0-1.0 [facility] Comment on above: Order Comment: No: D o not add to previous draw Performed By: #### 8 [id number] #### [facility] [address] [place] [address], [facility] Lymphocytes (Bld) [#/Vol] 1.3 10*3/uL Normal 1.2-4.0 [facility] Comment on above: Order Comment: No: D o not add to previous draw Performed By: #### 8 [id number] #### [facility] [address] [facility] [place] [address], [facility] Lymphocytes/100 WBC (Bld) 14.3 % Low 20.0-45.0 [facility] Comment on above: Order Comment: No: D o not add to previous draw Performed By: #### 8 [id number] #### [facility] [address] [facility] [place] [id number], [facility] MCH (RBC) [Entitic mass] 27.3 pg Normal 27.0-33.0 [facility] Comment on above: Order Comment: No: D o not add to previous draw Performed By: #### 8 [id number] #### [facility] [address] [facility] [place] [id number], [facility] MCHC (RBC) [Mass/Vol] 30.7 g/dL Low 32.0-35.0 [facility] Comment on above: Order Comment: No: D o not add to previous draw Performed By: #### 8 [id number] #### [facility] [address] [facility] [place] [id number], [facility] MCV (RBC) [Entitic vol] 89.0 fL Normal 82.0-98.0 [facility] Comment on above: Order Comment: No: D o not add to previous draw Performed By: #### 8 [id number] #### [facility] [address] [facility] [place] [address], [facility] Monocytes (Bld) [#/Vol] 1.0 10*3/uL Normal 0.1-1.0 [facility] Comment on above: Order Comment: No: D o not add to previous draw Performed By: #### 8 [id number] #### [facility] [address] [place] [address], [facility] MONOS 10.9 % Normal 5.0-12.0 [facility] Comment on above: Order Comment: No: D o not add to previous draw Performed By: #### 8 [id number] #### [facility] [address] [place] [address], [facility] Neutrophils/100 WBC (Bld) 65.5 % Normal 40.0-72.0 [facility] Comment on above: Order Comment: No: D o not add to previous draw Performed By: #### 8 [id number] #### [facility] [address] [place] [address], [facility] Nucleated RBC/100 WBC (Bld) [Ratio] 0 % Normal 0-0 [facility] Comment on above: Order Comment: No: D o not add to previous draw Performed By: #### 8 [id number] #### [facility] [address] [place] [address], [place] PLAT CNT 293 10*3/uL Normal 150-400 [facility] Comment on above: Order Comment: No: D o not add to previous draw Performed By: #### 8 [id number] #### [facility] [address] [facility] [place] [address], [facility] RBC (Bld) [#/Vol] 3.37 10*6/uL Low 4.20-5.70 [facility] Comment on above: Order Comment: No: D o not add to previous draw Performed By: #### 8 [id number] #### [facility] [address] [place] [address], [place] WBC (Bld) [#/Vol] 8.86 10*3/uL Normal 4.00-10.60 [facility] Comment on above: Order Comment: No: D o not add to previous draw Performed By: #### 8 [id number] #### [facility] [address] [place] [address], [facility] POC GLUCOSE LABon 07-17-2020 Glucose [Mass/Vol] 101 mg/dL High 70-100 [facility] Comment on above: Performed By: #### 5 7307, [id number] #### [facility] [address] [place] [address], [place] Glucose [Mass/Vol] 76 mg/dL Normal 70-100 [facility] Comment on above: Performed By: #### 5 7307, 21986 #### [facility] [address] [place] [address], [place] Glucose [Mass/Vol] 75 mg/dL Normal 70-100 [facility] Comment on above: Performed By: #### 8 5499 ####[facility] [place] [address], [place] Glucose [Mass/Vol] 198 mg/dL High 70-100 [facility] Comment on above: Performed By: #### 8 5499 ####[facility] [place] [address], [place] Glucose [Mass/Vol] 205 mg/dL High 70-100 [facility] Comment on above: Performed By: #### 3 0318 #### [facility] [address] [place] [address], [place] Glucose [Mass/Vol] 187 mg/dL High 70-100 [facility] Comment on above: Performed By: #### 5 7307, 79493 #### [facility] [address] [place] [address], [place] Glucose [Mass/Vol] 131 mg/dL High 70-100 [facility] Comment on above: Performed By: #### 8 5499 #### [facility] [address] [place] [address], [place] Glucose [Mass/Vol] 75 mg/dL Normal 70-100 [facility] Comment on above: Performed By: #### 5 0103 #### [facility] [address] [place] [address], [place] Glucose [Mass/Vol] 69 mg/dL Low 70-100 [facility] Comment on above: Performed By: #### 8 5499 ####[facility] [place] [address], [facility] BASIC METABOLIC PANELon 03-2 Calcium [Mass/Vol] 8.4 mg/dL Low 8.6-10.3 [facility] Comment on above: Order Comment: No: D o not add to previous draw Performed By: #### 3 1943 #### [facility] [address] [place] [address], [place] Chloride [Moles/Vol] 105 mmol/L Normal 98-107 [facility] Comment on above: Order Comment: No: D o not add to previous draw Performed By: #### 3 1943 #### [facility] [address] [place] [address], [place] CO2 [Moles/Vol] 24 mmol/L Normal 21-31 [facility] Comment on above: Order Comment: No: D o not add to previous draw Performed By: #### 3 1943 #### [facility] [address] [place] [address], [place] Creatinine [Mass/Vol] 4.14 mg/dL High 0.70-1.30 [facility] Comment on above: Order Comment: No: D o not add to previous draw Performed By: #### 3 1943 #### [facility] [address] [place] [address], [place] eGFR- 18 ml/min/1.73sq m Abnormal >60 [facility] Comment on above: Order Comment: No: D o not add to previous draw Performed By: #### 3 1943 #### [facility] [address] [place] [address], [place] eGFR- non- 15 ml/min/1.73sq m Abnormal >60 [facility] Comment on above: Order Comment: No: D o not add to previous draw Performed By: #### 3 1943 #### [facility] [address] [place] [address], [place] Glucose [Mass/Vol] 127 mg/dL High 70-100 [facility] Comment on above: Order Comment: No: D o not add to previous draw Performed By: #### 3 1943 #### [facility] [address] [place] [address], [place] Potassium [Moles/Vol] 4.0 mmol/L Normal 3.5-5.1 [facility] Comment on above: Order Comment: No: D o not add to previous draw Performed By: #### 3 1943 #### [facility] [address] [place] [address], [place] Sodium [Moles/Vol] 136 mmol/L Normal 136-145 [facility] Comment on above: Order Comment: No: D o not add to previous draw Performed By: #### 3 1943 #### [facility] [address] [place] [address], [place] Urea nitrogen [Mass/Vol] 35 mg/dL High 7-25 [facility] Comment on above: Order Comment: No: D o not add to previous draw Performed By: #### 3 1943 #### [facility] [address] [place] [address], [facility] CBC COMPLETE BLOOD COUNTon 0 3- Erythrocyte distribution width (RBC) [Ratio] 14.6 % Normal 11.5-15.0 [facility] Comment on above: Order Comment: No: D o not add to previous draw Performed By: #### 8 9 #### [facility] [address] [place] [address], [place] Hematocrit (Bld) [Volume fraction] 31.8 % Low 39.0-50.0 [facility] Comment on above: Order Comment: No: D o not add to previous draw Performed By: #### 8 [id number] #### [facility] [address] Hemoglobin (Bld) [Mass/Vol] 9.7 g/dL Low 13.0-17.0 [facility] Comment on above: Order Comment: No: D o not add to previous draw Performed By: #### 8 [id number] #### [facility] [address] [place] [id number], [facility] MCH (RBC) [Entitic mass] 27.2 pg Normal 27.0-33.0 [facility] Comment on above: Order Comment: No: D o not add to previous draw Performed By: #### 8 5499 #### [facility] [address] [facility] [place] [address], [facility] MCHC (RBC) [Mass/Vol] 30.5 g/dL Low 32.0-35.0 [facility] Comment on above: Order Comment: No: D o not add to previous draw Performed By: #### 8 [id number] #### [facility] [address] [facility] [place] [address], [facility] MCV (RBC) [Entitic vol] 89.3 fL Normal 82.0-98.0 [facility] Comment on above: Order Comment: No: D o not add to previous draw Performed By: #### 8 5499 #### [facility] [address] [facility] [place] [address], [facility] Nucleated RBC/100 WBC (Bld) [Ratio] 0 % Normal 0-0 [facility] Comment on above: Order Comment: No: D o not add to previous draw Performed By: #### 8 5499 #### [facility] [address] [facility] [place] [address], [facility] PLAT CNT 321 10*3/uL Normal 150-400 [facility] Comment on above: Order Comment: No: D o not add to previous draw Performed By: #### 8 5499 #### [facility] [address] [place] [address], [place] RBC (Bld) [#/Vol] 3.56 10*6/uL Low 4.20-5.70 [facility] Comment on above: Order Comment: No: D o not add to previous draw Performed By: #### 8 5499 #### [facility] [address] [place] [address], [place] WBC (Bld) [#/Vol] 8.88 10*3/uL Normal 4.00-10.60 [facility] Comment on above: Order Comment: No: D o not add to previous draw Performed By: #### 8 5499 #### [facility] [address] [place] [address], [place] POC GLUCOSE LABon 07-16-2020 Glucose [Mass/Vol] 94 mg/dL Normal 70-100 [facility] Comment on above: Performed By: #### 5 0103 #### [facility] [address] [place] [address], [place] Glucose [Mass/Vol] 62 mg/dL Low 70-100 [facility] Comment on above: Performed By: #### 5 7307, 22132 #### [facility] [address] [place] [address], [place] Glucose [Mass/Vol] 80 mg/dL Normal 70-100 [facility] Comment on above: Performed By: #### 5 7307, 47471 #### [facility] [address] [place] [address], [place] Glucose [Mass/Vol] 99 mg/dL Normal 70-100 [facility] Comment on above: Performed By: #### 8 5499 ####[facility] [place] [address], [place] Glucose [Mass/Vol] 203 mg/dL High 70-100 [facility] Comment on above: Performed By: #### 8 5499 ####[facility] [place] [address], [place] Glucose [Mass/Vol] 151 mg/dL High 70-100 [facility] Comment on above: Performed By: #### 5 7307, 60799 #### [facility] [address] [place] [address], [place] ANAon 07-15-2020 KILLIAN SCREEN <1:40 Normal <1:40,1:40 [facility] Comment on above: Order Comment: No: D o not add to previous draw Performed By: #### 8 5499 #### [facility] [address] [place] [address], [facility] ANCA IGG WITH REFLEX [id number] on 07-15-2020 ANCA <1:20 Normal <1:20 [facility] Comment on above: Order Comment: [...] collagen vascular disease or arthritis. Performed By: [employer] [address] [place] [id number] Visual Specialist: Emi Campbell MD BASIC METABOLIC PANELon 06-27 Calcium [Mass/Vol] 8.5 mg/dL Low 8.6-10.3 [facility] Comment on above: Order Comment: No: D o not add to previous draw Performed By: #### 8 5499 #### [facility] [address] [place] [address], [place] Chloride [Moles/Vol] 103 mmol/L Normal 98-107 [facility] Comment on above: Order Comment: No: D o not add to previous draw Performed By: #### 8 5499 #### [facility] [address] [place] [address], [place] CO2 [Moles/Vol] 23 mmol/L Normal 21-31 [facility] Comment on above: Order Comment: No: D o not add to previous draw Performed By: #### 8 5499 #### [facility] [address] [place] [address], [place] Creatinine [Mass/Vol] 4.38 mg/dL High 0.70-1.30 [facility] Comment on above: Order Comment: No: D o not add to previous draw Performed By: #### 8 5499 #### [facility] [address] [place] [address], [place] eGFR- 17 ml/min/1.73sq m Abnormal >60 [facility] Comment on above: Order Comment: No: D o not add to previous draw Performed By: #### 8 5499 #### [facility] [address] [place] [address], [place] eGFR- non- 14 ml/min/1.73sq m Abnormal >60 [facility] Comment on above: Order Comment: No: D o not add to previous draw Performed By: #### 8 5499 #### [facility] [address] [place] [address], [place] Glucose [Mass/Vol] 154 mg/dL High 70-100 [facility] Comment on above: Order Comment: No: D o not add to previous draw Performed By: #### 8 5499 #### [facility] [address] [place] [address], [place] Potassium [Moles/Vol] 4.5 mmol/L Normal 3.5-5.1 [facility] Comment on above: Order Comment: No: D o not add to previous draw Performed By: #### 8 5499 #### [facility] [address] [place] [address], [place] Sodium [Moles/Vol] 135 mmol/L Low 136-145 [facility] Comment on above: Order Comment: No: D o not add to previous draw Performed By: #### 8 5499 #### [facility] [address] [place] [address], [facility] Urea nitrogen [Mass/Vol] 32 mg/dL High 7-25 [facility] Comment on above: Order Comment: No: D o not add to previous draw Performed By: #### 8 5499 #### [facility] [address] [place] [address], [facility] C REACTIVE PROTEINon 021 CRP [Mass/Vol] 138.0 mg/L High 0.0-7.0 [facility] Comment on above: Order Comment: FROM [id number] Performed By: #### 8 [id number] #### [facility] [address] [facility] [place] [address], [facility] CBC W/DIFFon 07-15-2020 ABS IMM GRANS 0.1 10*3/uL Normal 0.0-0.2 [facility] Comment on above: Performed By: #### 5 0103 #### [facility] [address] [facility] [place] [address], [facility] ABS NEUTROPHILS 7.3 10*3/uL Normal 1.6-7.6 [facility] Comment on above: Performed By: #### 5 0103 #### [facility] [address] [facility] [place] [address], [facility] Basophils (Bld) [#/Vol] 0.0 10*3/uL Normal 0.0-0.2 [facility] Comment on above: Performed By: #### 5 0103 #### [facility] [address] [facility] [place] [address], [facility] Basophils/100 WBC (Bld) 0.3 % Normal 0.0-1.0 [facility] Comment on above: Performed By: #### 5 0103 #### [facility] [address] [place] [address], [facility] Eosinophils (Bld) [#/Vol] 0.5 10*3/uL Normal 0.0-0.5 [facility] Comment on above: Performed By: #### 5 0103 #### [facility] [address] [facility] [place] [address], [facility] Eosinophils/100 WBC (Bld) 5.1 % Normal 0.0-6.0 [facility] Comment on above: Performed By: #### 5 0103 #### [facility] [address] [facility]. [address] Erythrocyte distribution width (RBC) [Ratio] 14.9 % Normal 11.5-15.0 [facility] Comment on above: Performed By: #### 5 0103 #### [facility] [address] [facility] [place] [address], [facility] Hematocrit (Bld) [Volume fraction] 33.0 % Low 39.0-50.0 [facility] Comment on above: Performed By: #### 5 0103 #### [facility] [address] [place] [address], [facility] Hemoglobin (Bld) [Mass/Vol] 9.9 g/dL Low 13.0-17.0 [facility] Comment on above: Performed By: #### 5 0103 #### [facility] [address] [place] [address], [facility] IMMATURE GRANS 1.4 % High 0.0-1.0 [facility] Comment on above: Performed By: #### 5 0103 #### [facility] [address] [facility] [place] [address], [facility] Lymphocytes (Bld) [#/Vol] 1.1 10*3/uL Low 1.2-4.0 [facility] Comment on above: Performed By: #### 5 3 #### [facility] [address] [facility] [place] [place] [address], [facility] Lymphocytes/100 WBC (Bld) 11.0 % Low 20.0-45.0 [facility] Comment on above: Performed By: #### 5 0103 #### [facility] [address] [facility] [place] [address], [facility] MCH (RBC) [Entitic mass] 27.0 pg Normal 27.0-33.0 [facility] Comment on above: Performed By: #### 5 0103 #### [facility] [address] [facility] [place] [address], [facility] MCHC (RBC) [Mass/Vol] 30.0 g/dL Low 32.0-35.0 [facility] Comment on above: Performed By: #### 5 3 #### [facility] [address] [facility] [place] [address], [facility] MCV (RBC) [Entitic vol] 90.2 fL Normal 82.0-98.0 [facility] Comment on above: Performed By: #### 5 0103 #### [facility] [address] [place] [address], [facility] Monocytes (Bld) [#/Vol] 1.1 10*3/uL High 0.1-1.0 [facility] Comment on above: Performed By: #### 5 3 #### [facility] [address] [place] [address], [facility] MONOS 10.9 % Normal 5.0-12.0 [facility] Comment on above: Performed By: #### 5 3 #### [facility] [address] [facility] [place] [address], [facility] Neutrophils/100 WBC (Bld) 71.3 % Normal 40.0-72.0 [facility] Comment on above: Performed By: #### 5 3 #### [facility] [address] [place] [address], [facility] Nucleated RBC/100 WBC (Bld) [Ratio] 0 % Normal 0-0 [facility] Comment on above: Performed By: #### 5 0103 #### [facility] [address] [place] [id number], [facility] PLAT CNT 317 10*3/uL Normal 150-400 [facility] Comment on above: Performed By: #### 5 0103 #### [facility] [address] [place] [address], [facility] CENTER RBC (Bld) [#/Vol] 3.66 10*6/uL Low 4.20-5.70 [facility] Comment on above: Performed By: #### 5 0103 #### [facility] [address] [place] [id number], [facility] WBC (Bld) [#/Vol] 10.23 10*3/uL Normal 4.00-10.60 [facility] Comment on above: Performed By: #### 5 0103 #### [facility] [address] [place] [address], [facility] COMPLEMENT 3on 07-15-2020 COMPLEMENT 3 108 mg/dL Normal 79-152 [facility] Comment on above: Order Comment: No: D o not add to previous draw Performed By: #### 8 [id number] #### [facility] [address] [place] [address], [facility] COMPLEMENT 4on 07-15-2020 COMPLEMENT 4 31 mg/dL Normal 16-38 [facility] Comment on above: Order Comment: No: D o not add to previous draw Performed By: #### 8 [id number] #### [facility] [address] [place] [id number], [facility] GLOMR BASMT MEMBRon 07-16-19 21 GLOMR BASMT MBRN Negative Abnormal NEGATIVE [facility] Comment on above: Order Comment: No: D o not add to previous draw Result Comment: Note : The performance characteristics of this test were validated by the [facility] Immunology laboratory. It has not been cleared or approved by the U.S. Food and Drug Administration. The results are not intended to be used as the sole means for clinical diagnosis or patient management decisions. [facility]'s Immunology lab is authorized under CLIA to perform high-complexity testing. Performed By: #### 8 [id number] #### [facility] [address] [facility] [address], [facility] POC GLUCOSE LABon 07-15-2020 Glucose [Mass/Vol] 107 mg/dL High 70-100 [facility] Comment on above: Performed By: #### 5 7307, [id number] #### [facility] [address] [facility] [address], [place] Glucose [Mass/Vol] 84 mg/dL Normal 70-100 [facility] Comment on above: Performed By: #### 5 0103 #### [facility] [address] [facility] [address], [place] Glucose [Mass/Vol] 164 mg/dL High 70-100 [facility] Comment on above: Performed By: #### 8 [id number] ####[facility] [facility] [place] [address], [place] Glucose [Mass/Vol] 141 mg/dL High 70-100 [facility] Comment on above: Performed By: #### 5 7307, [id number] #### [facility] [address] [facility] [address], [facility] PORTABLE CHEST 1 VIEWon 06-27 PORTABLE CHEST 1 VIEW [facility] Department of Radiology [address] [place] [id number] Patient Name: RASHARD LYMAN : 1960 Sex: M Age: Race: White Pt. Location: [id number] Patient Status: I Ordered Date: 07/15/2020 7:00:00 [...] exam. Electronically signed: Nir Swartz. Transcribed by: [email or web address], User Resident: Electronically Signed by: NIR SWARTZ @ 07/15/2020 07:34 AM Normal [facility] Comment on above: Order Comment: evalu ate for Effusion *AFB CULTUREon 07-14-2020 *AFB CULTURE Clinical Report: (D) Specimen/Source: FLUID/PLEURAL FLUID Collected: 07/14/2020 13:03 Status: Final Last Updated: 08/26/2020 08:52 (1) Left Peural Effusion AFB (Final) No Acid Fast Bacilli Seen CULT RES (Final) No growth after 42 days of incubation Normal [facility] Comment on above: Order Comment: Left Peural Effusion Performed By: #### 8 [id number] #### [address] *ANAEROBIC CULTUREon 021 *ANAEROBIC CULTURE Clinical Report: (D) Specimen/Source: FLUID/PLEURAL FLUID Collected: 07/14/2020 13:03 Status: Final Last Updated: 07/19/2020 08:08 (1) Left Peural Effusion CULT RES (Final) No Anaerobes Isolated 5 Days Normal [facility] Comment on above: Order Comment: Left Peural Effusion Performed By: #### 8 [id number] #### [facility] [address] [place] [address], [facility] *BODY FLUID CULTUREon 2020 *BODY FLUID CULTURE Clinical Report: (D) Specimen/Source: FLUID/PLEURAL FLUID Collected: 07/14/2020 13:03 Status: Final Last Updated: 07/19/2020 07:53 (1) Left Peural Effusion GRAM (Final) Polys PRESENT No Bacteria Seen CYTOSPUN (Final) This Gram Stain was done on a cytocentrifuged specimen CULT RES (Final) No Growth Day 5 Normal [facility] Comment on above: Order Comment: Left Peural Effusion Performed By: #### 3 0318 #### [facility] [address] *FUNGAL CULTUREon 07-14-2020 *FUNGAL CULTURE Clinical Report: (D) Specimen/Source: FLUID/PLEURAL FLUID Collected: 07/14/2020 13:03 Status: Final Last Updated: 08/15/2020 08:41 (1) Left Peural Effusion FS (Final) No Yeast or Fungal Elements Seen CULT RES (Final) Culture negative for fungus Normal [facility] Comment on above: Order Comment: Left Peural Effusion Performed By: #### 8 [id number] #### [facility] [address] *VIRAL NON RESPIRATORY CULTU REon 07-14-2020 Bacteria identified Cx Nom (Unsp spec) Normal [facility] Comment on above: Order Comment: Left Peural [...] Linked Virus Inducible S. [place] Normal [facility] Comment on above: Order Comment: Left Peural Effusion Result Comment: Test Performed by [employer] [address] - Released 07/20/2020 14:10 Result changed by IF on 07/17/2020 14:17. The previous value was Test Performed by [employer] [facility] [address] [phone].. Result changed by IF on 07/18/2020 12:17. The previous value was Test Performed by [address] [address] [phone].. Result changed by IF on 07/20/2020 14:10. The previous value was Test Performed by [address] [address] [phone].. REPORT STATUS FINAL 07/20/2020 Normal [facility] Comment on above: Order Comment: Left Peural Effusion Result Comment: Resu lt changed by IF on 07/20/2020 14:10. The previous value was Preliminary. APTTon 07-14-2020 aPTT Coag (Bld) [Time] 41.7 s High 25.0-35.0 [facility] Comment on above: Order Comment: [...] PURPOSE. Performed By: #### 8 [id number] #### [facility] [address] [place] [address], [facility] aPTT Coag (Bld) [Time] 44.9 s High 25.0-35.0 [facility] Comment on above: Order Comment: [...] THIS PURPOSE. Performed By: #### 5 7307, [id number] #### [facility] [address] [facility] [place] [address], [facility] BASIC METABOLIC PANELon 06-27 Calcium [Mass/Vol] 8.6 mg/dL Normal 8.6-10.3 [facility] Comment on above: Order Comment: No: D o not add to previous draw Performed By: #### 8 [id number] #### [facility] [address] [facility] [place] [address], [facility] Chloride [Moles/Vol] 102 mmol/L Normal 98-107 [facility] Comment on above: Order Comment: No: D o not add to previous draw Performed By: #### 8 [id number] #### [facility] [address] [place] [address], [facility] CO2 [Moles/Vol] 24 mmol/L Normal 21-31 [facility] Comment on above: Order Comment: No: D o not add to previous draw Performed By: #### 8 [id number] #### [facility] [address] [place] [id number], [facility] Creatinine [Mass/Vol] 3.44 mg/dL High 0.70-1.30 [facility] Comment on above: Order Comment: No: D o not add to previous draw Performed By: #### 8 [id number] #### [facility] [address] [place] [address], [place] eGFR- 22 ml/min/1.73sq m Abnormal >60 [facility] Comment on above: Order Comment: No: D o not add to previous draw Performed By: #### 8 [id number] #### [facility] [address] [place] [address], [place] eGFR- non- 18 ml/min/1.73sq m Abnormal >60 [facility] Comment on above: Order Comment: No: D o not add to previous draw Performed By: #### 8 [id number] #### [facility] [address] [place] [address], [place] Glucose [Mass/Vol] 355 mg/dL High 70-100 [facility] Comment on above: Order Comment: No: D o not add to previous draw Performed By: #### 8 [id number] #### [facility] [address] [place] [address], [place] Potassium [Moles/Vol] 4.6 mmol/L Normal 3.5-5.1 [facility] Comment on above: Order Comment: No: D o not add to previous draw Performed By: #### 8 [id number] #### [facility] [address] [place] [address], [place] Sodium [Moles/Vol] 133 mmol/L Low 136-145 [facility] Comment on above: Order Comment: No: D o not add to previous draw Performed By: #### 8 [id number] #### [facility] [address] [place] [address], [place] Urea nitrogen [Mass/Vol] 27 mg/dL High 7-25 [facility] Comment on above: Order Comment: No: D o not add to previous draw Performed By: #### 8 [id number] #### [facility] [address] BNP (B-TYPE NATRIURETIC PEPT CIERRA)on 07-14-2020 Natriuretic peptide B (Bld) [Mass/Vol] 19 pg/mL Normal 0-100 [facility] Comment on above: Order Comment: Left Peural Effusion Result Comment: Give n the appropriate clinical setting a BNP result of >100 pg/mL indicates congestive heart failure. Performed By: #### 3 0318 #### [facility] [address] [facility] [address] CBC COMPLETE BLOOD COUNTon 0 07-14-2020 Erythrocyte distribution width (RBC) [Ratio] 14.6 % Normal 11.5-15.0 [facility] Comment on above: Order Comment: No: D o not add to previous draw Performed By: #### 8 [id number] #### [facility] [address] [facility] Hematocrit (Bld) [Volume fraction] 35.3 % Low 39.0-50.0 [facility] Comment on above: Order Comment: No: D o not add to previous draw Performed By: #### 8 [id number] #### [facility] [address] [place] [address], [facility] Hemoglobin (Bld) [Mass/Vol] 11.1 g/dL Low 13.0-17.0 [facility] Comment on above: Order Comment: No: D o not add to previous draw Performed By: #### 8 [id number] #### [facility] [address] [facility] [place] [address], [facility] MCH (RBC) [Entitic mass] 27.5 pg Normal 27.0-33.0 [facility] Comment on above: Order Comment: No: D o not add to previous draw Performed By: #### 8 [id number] #### [facility] [address] [place] [address], [facility] MCHC (RBC) [Mass/Vol] 31.4 g/dL Low 32.0-35.0 [facility] Comment on above: Order Comment: No: D o not add to previous draw Performed By: #### 8 [id number] #### [facility] [address] [place] [address], [facility] MCV (RBC) [Entitic vol] 87.6 fL Normal 82.0-98.0 [facility] Comment on above: Order Comment: No: D o not add to previous draw Performed By: #### 8 [id number] #### [facility] [address] Nucleated RBC/100 WBC (Bld) [Ratio] 0 % Normal 0-0 [facility] Comment on above: Order Comment: No: D o not add to previous draw Performed By: #### 8 [id number] #### [facility] [address] [place] [address], [facility] PLAT CNT 325 10*3/uL Normal 150-400 [facility] Comment on above: Order Comment: No: D o not add to previous draw Performed By: #### 8 [id number] #### [facility] [address] [place] [address], [facility] RBC (Bld) [#/Vol] 4.03 10*6/uL Low 4.20-5.70 [facility] Comment on above: Order Comment: No: D o not add to previous draw Performed By: #### 8 [id number] #### [facility] [address] [place] [address], [facility] WBC (Bld) [#/Vol] 12.59 10*3/uL High 4.00-10.60 [facility] Comment on above: Order Comment: No: D o not add to previous draw Performed By: #### 8 [id number] #### [facility] [address] [place] [address], [facility] CBC W/DIFFon 07-14-2020 ABS IMM GRANS 0.2 10*3/uL Normal 0.0-0.2 [facility] Comment on above: Order Comment: No: D o not add to previous draw Performed By: #### 8 [id number] #### [facility] [address] [place] [address], [facility] ABS NEUTROPHILS 7.9 10*3/uL High 1.6-7.6 [facility] Comment on above: Order Comment: No: D o not add to previous draw Performed By: #### 8 [id number] #### [facility] [address] [place] [address], [place] Basophils (Bld) [#/Vol] 0.1 10*3/uL Normal 0.0-0.2 [facility] Comment on above: Order Comment: No: D o not add to previous draw Performed By: #### 8 [id number] #### [facility] [address] [place] [address], [place] Basophils/100 WBC (Bld) 0.5 % Normal 0.0-1.0 [facility] Comment on above: Order Comment: No: D o not add to previous draw Performed By: #### 8 [id number] #### [facility] [address] [place] [address], [place] Eosinophils (Bld) [#/Vol] 0.5 10*3/uL Normal 0.0-0.5 [facility] Comment on above: Order Comment: No: D o not add to previous draw Performed By: #### 8 [id number] #### [facility] [address] [place] [address], [place] Eosinophils/100 WBC (Bld) 4.3 % Normal 0.0-6.0 [facility] Comment on above: Order Comment: No: D o not add to previous draw Performed By: #### 8 [id number] #### [facility] [address] [place] [address], [place] Erythrocyte distribution width (RBC) [Ratio] 14.6 % Normal 11.5-15.0 [facility] Comment on above: Order Comment: No: D o not add to previous draw Performed By: #### 8 [id number] #### [facility] [address] [place] [address], [facility] Hematocrit (Bld) [Volume fraction] 34.2 % Low 39.0-50.0 [facility] Comment on above: Order Comment: No: D o not add to previous draw Performed By: #### 8 [id number] #### [facility] [address] [place] [address], [facility] Hemoglobin (Bld) [Mass/Vol] 10.3 g/dL Low 13.0-17.0 [facility] Comment on above: Order Comment: No: D o not add to previous draw Performed By: #### 8 [id number] #### [facility] [address] [place] [address], [facility] IMMATURE GRANS 1.4 % High 0.0-1.0 [facility] Comment on above: Order Comment: No: D o not add to previous draw Performed By: #### 8 [id number] #### [facility] [address] [facility] [place] [address], [facility] Lymphocytes (Bld) [#/Vol] 1.3 10*3/uL Normal 1.2-4.0 [facility] Comment on above: Order Comment: No: D o not add to previous draw Performed By: #### 8 [id number] #### [facility] [address] [facility] [place] [address], [facility] Lymphocytes/100 WBC (Bld) 11.3 % Low 20.0-45.0 [facility] Comment on above: Order Comment: No: D o not add to previous draw Performed By: #### 8 [id number] #### [facility] [address] [place] [id number], [facility] MCH (RBC) [Entitic mass] 27.0 pg Normal 27.0-33.0 [facility] Comment on above: Order Comment: No: D o not add to previous draw Performed By: #### 8 [id number] #### [facility] [address] [place] [address], [facility] MCHC (RBC) [Mass/Vol] 30.1 g/dL Low 32.0-35.0 [facility] Comment on above: Order Comment: No: D o not add to previous draw Performed By: #### 8 [id number] #### [facility] [address] [facility] [place] [address], [facility] MCV (RBC) [Entitic vol] 89.5 fL Normal 82.0-98.0 [facility] Comment on above: Order Comment: No: D o not add to previous draw Performed By: #### 8 [id number] #### [facility] [address] [place] [address], [facility] Monocytes (Bld) [#/Vol] 1.4 10*3/uL High 0.1-1.0 [facility] Comment on above: Order Comment: No: D o not add to previous draw Performed By: #### 8 [id number] #### [facility] [address] [facility] [place] [address], [facility] MONOS 12.6 % High 5.0-12.0 [facility] Comment on above: Order Comment: No: D o not add to previous draw Performed By: #### 8 [id number] #### [facility] [address] [facility] [place] [address], [facility] Neutrophils/100 WBC (Bld) 69.9 % Normal 40.0-72.0 [facility] Comment on above: Order Comment: No: D o not add to previous draw Performed By: #### 8 [id number] #### [facility] [address] [place] [address], [facility] Nucleated RBC/100 WBC (Bld) [Ratio] 0 % Normal 0-0 [facility] Comment on above: Order Comment: No: D o not add to previous draw Performed By: #### 8 [id number] #### [facility] [address] [place] [address], [facility] PLAT CNT 292 10*3/uL Normal 150-400 [facility] Comment on above: Order Comment: No: D o not add to previous draw Performed By: #### 8 [id number] #### [facility] [address] [place] [id number], [facility] RBC (Bld) [#/Vol] 3.82 10*6/uL Low 4.20-5.70 [facility] Comment on above: Order Comment: No: D o not add to previous draw Performed By: #### 8 [id number] #### [facility] [address] [place] [address], [facility] WBC (Bld) [#/Vol] 11.28 10*3/uL High 4.00-10.60 [facility] Comment on above: Order Comment: No: D o not add to previous draw Performed By: #### 8 [id number] #### [facility] [address] [place] [id number], [facility] COMP METABOLIC PANELon 07-14 Albumin [Mass/Vol] 3.1 g/dL Low 3.5-5.7 [facility] Comment on above: Order Comment: No: D o not add to previous draw Performed By: #### 8 [id number] #### [facility] [address] [place] [address], [facility] ALKALINE PHOSPH 77 IU/L Normal 34-104 [facility] Comment on above: Order Comment: No: D o not add to previous draw Performed By: #### 8 [id number] #### [facility] [address] [place] [address], [facility] ALT [Catalytic activity/Vol] 8 U/L Normal 7-52 [facility] Comment on above: Order Comment: No: D o not add to previous draw Performed By: #### 8 [id number] #### [facility] [address] [place] [address], [place] AST [Catalytic activity/Vol] 11 U/L Low 13-39 [facility] Comment on above: Order Comment: No: D o not add to previous draw Performed By: #### 8 [id number] #### [facility] [address] [place] [address], [place] Bilirubin [Mass/Vol] 0.3 mg/dL Normal 0.3-1.0 [facility] Comment on above: Order Comment: No: D o not add to previous draw Performed By: #### 8 [id number] #### [facility] [address] [place] [address], [place] Calcium [Mass/Vol] 8.8 mg/dL Normal 8.6-10.3 [facility] Comment on above: Order Comment: No: D o not add to previous draw Performed By: #### 8 [id number] #### [facility] [address] [place] [address], [place] Chloride [Moles/Vol] 101 mmol/L Normal 98-107 [facility] Comment on above: Order Comment: No: D o not add to previous draw Performed By: #### 8 [id number] #### [facility] [address] [place] [address], [place] CO2 [Moles/Vol] 22 mmol/L Normal 21-31 [facility] Comment on above: Order Comment: No: D o not add to previous draw Performed By: #### 8 [id number] #### [facility] [address] [place] [address], [place] Creatinine [Mass/Vol] 3.38 mg/dL High 0.70-1.30 [facility] Comment on above: Order Comment: No: D o not add to previous draw Performed By: #### 8 [id number] #### [facility] [address] [place] [address], [place] eGFR- 23 ml/min/1.73sq m Abnormal >60 [facility] Comment on above: Order Comment: No: D o not add to previous draw Performed By: #### 8 [id number] #### [facility] [address] [place] [address], [place] eGFR- non- 19 ml/min/1.73sq m Abnormal >60 [facility] Comment on above: Order Comment: No: D o not add to previous draw Performed By: #### 8 [id number] #### [facility] [address] [place] [address], [place] Glucose [Mass/Vol] 324 mg/dL High 70-100 [facility] Comment on above: Order Comment: No: D o not add to previous draw Performed By: #### 8 [id number] #### [facility] [address] [place] [address], [place] Potassium [Moles/Vol] 4.5 mmol/L Normal 3.5-5.1 [facility] Comment on above: Order Comment: No: D o not add to previous draw Performed By: #### 8 [id number] #### [facility] [address] [place] [address], [place] Protein [Mass/Vol] 6.7 g/dL Normal 6.0-8.3 [facility] Comment on above: Order Comment: No: D o not add to previous draw Performed By: #### 8 [id number] #### [facility] [address] [place] [address], [place] Sodium [Moles/Vol] 131 mmol/L Low 136-145 [facility] Comment on above: Order Comment: No: D o not add to previous draw Performed By: #### 8 [id number] #### [facility] [address] [place] [address], [place] Urea nitrogen [Mass/Vol] 27 mg/dL High 7-25 [facility] Comment on above: Order Comment: No: D o not add to previous draw Performed By: #### 8 [id number] #### [facility] [address] [place] [address], [facility] CREATININE URINE RANDOMon Creatinine (U) [Mass/Vol] 101.0 mg/dL Normal [facility] Comment on above: Order Comment: No: D o not add to previous draw Result Comment: Ther e are no established reference values for random urine specimens Performed By: #### 8 [id number] #### [facility] [address] [place] [address], [facility] FLUID CELL COUNTon 1 Basophils/100 WBC (Bld) 1 % Normal [facility] Comment on above: Performed By: #### 8 [id number] #### [facility] [address] [place] [address], [facility] Eosinophils/100 WBC (Bld) 11 % Normal [facility] Comment on above: Performed By: #### 8 [id number] #### [facility] [address] [place] [address], [facility] Lymphocytes/100 WBC (Bld) 49 % Normal [facility] Comment on above: Performed By: #### 8 [id number] #### [facility] [address] [place] [address], [facility] MESOTHELIAL 12 % Normal [facility] Comment on above: Performed By: #### 8 [id number] #### [facility] [address] [place] [address], [facility] OTHER F1 Diff done by cytospin Normal [facility] Comment on above: Performed By: #### 8 [id number] #### [facility] [address] [place] [id number], [facility] OTHER F3 Checked by Evelyn Rodriguez M.D. Normal [facility] Comment on above: Result Comment: Resu lt changed by ERR on 07/15/2020 13:33. The previous value was Preliminary report; verified report to follow. Performed By: #### 8 [id number] #### [facility] [address] [place] [address], [place] RBC [address] RBC/uL Normal [facility] Comment on above: Performed By: #### 8 [id number] #### [facility] [address] [place] [address], [place] SEGS 27 % Normal [facility] Comment on above: Performed By: #### 8 [id number] #### [facility] [address] [place] [address], [place] SOURCE Thoracentesis Normal [facility] Comment on above: Performed By: #### 8 [id number] #### [facility] [address] [place] [address], [place] TOTAL VOLUME 1L Normal [facility] Comment on above: Performed By: #### 8 [id number] #### [facility] [address] [place] [address], [place] WBC 1762 WBC/uL Normal [facility] Comment on above: Result Comment: Some reference interval(s) and other method performance specifications have not been established for analytes on this body fluid. The test result must be integrated into the clinical context for interpretation. Performed By: #### 8 [id number] #### [facility] [address] [place] [address], [facility] GLUCOSE FLUID MISCon 021 Glucose [Mass/Vol] 326 mg/dL Normal [facility] Comment on above: Result Comment: The reference range and other method performance specifications have not been established for this test in fluids. the test result should be integrated into the clinical context for interpretation. Performed By: #### 3 1944 #### [facility] [address] [place] [address], [place] HEMOGLOBIN A1Con 07-14-2020 Glucose [Moles/Vol] 295 mmol/L Normal [facility] Comment on above: Order Comment: Left Peural Effusion Performed By: #### 3 [id number] #### [facility] [address] [place] [address], [facility] HbA1c (Bld) [Mass fraction] 11.9 % High 4.0-6.0 [facility] Comment on above: Order Comment: Left Peural Effusion Performed By: #### 3 [id number] #### [facility] [address] [place] [address], [facility] HEPATITIS B SURFACE ANTIGEN QUALon 07-14-2020 HEP B SURF AG QUAL Non-Reactive Normal NONREACTIVE [facility] Comment on above: Order Comment: No: D o not add to previous draw Performed By: #### 3 4 #### [facility] [address] [place] [address], [facility] HEPATITIS C ANTIBODYon 07-14 ANTI-HCV Non-Reactive Normal NONREACTIVE [facility] Comment on above: Order Comment: No: D o not add to previous draw Performed By: #### 3 1943 #### [facility] [address] [place] [address], [facility] LDH BLOODon 07-14-2020 LDH 176 Units/L Normal 140-271 [facility] Comment on above: Order Comment: Left Peural Effusion Performed By: #### 3 [id number] #### [facility] [address] [place] [address], [facility] LDH 133 Units/L Low 140-271 [facility] Comment on above: Order Comment: No: D o not add to previous draw Performed By: #### 8 [id number] #### [facility] [address] [place] [address], [facility] LDH FLUIDon 07-14-2020 LDH 212 Units/L Normal [facility] Comment on above: Result Comment: The reference range and other method performance specifications have not been established for this test in fluids. the test result should be integrated into the clinical context for interpretation. Performed By: #### 3 1943 #### [facility] [address] [place] [address], [facility] LIPID PROFILEon 07-14-2020 Cholesterol [Mass/Vol] 95 mg/dL Low 120-200 [facility] Comment on above: Order Comment: No: D o not add to previous draw Result Comment: CHOL ESTEROL REFERENCE RANGE: 20 YEARS AND OLDER CARDIOVASCULAR RISK Less than 200 mg/dl Low Risk 200 to 239 mg/dl Borderline Risk 240 mg/dl and greater High Risk Performed By: #### 8 [id number] #### [facility] [address] [facility] [place] [address], [facility] Cholesterol in HDL [Mass/Vol] 36 mg/dL Normal 23-92 [facility] Comment on above: Order Comment: No: D o not add to previous draw Result Comment: Slig ht variation in normal range could be due to gender and/or age. HDL CHOLESTEROL REFERENCE RANGE: 20 years and older Cardiovascular Risk > or =60 mg/dL Desirable 40 TO 59 mg/dL Low Risk <40 mg/dL High Risk Performed By: #### 8 [id number] #### [facility] [address] [facility] [address], [facility] Cholesterol in LDL [Mass/Vol] 37 mg/dL Normal 0-130 [facility] Comment on above: Order Comment: No: D o not add to previous draw Result Comment: LDL IS A CALCULATION LDL IS ONLY VALID IF THE TRIG IS LESS THAN 400. Performed By: #### 8 [id number] #### [facility] [address] [facility] [place] [address], [facility] Cholesterol.total/C holesterol in HDL [Mass ratio] 2.6 {ratio} Normal 0.0-4.5 [facility] Comment on above: Order Comment: No: D o not add to previous draw Performed By: #### 8 [id number] #### [facility] [address] [place] [address], [place] NON-HDL CHOLESTEROL 59 mg/dL Normal [facility] Comment on above: Order Comment: No: D o not add to previous draw Performed By: #### 8 [id number] #### [facility] [address] [place] [address], [facility] Triglyceride [Mass/Vol] 109 mg/dL Normal 40-149 [facility] Comment on above: Order Comment: No: D o not add to previous draw Result Comment: TRIG LYCERIDE REFERENCE RANGE: 20 YEARS AND OLDER CARDIOVASCULAR RISK LESS THAN 150 mg/dl LOW RISK 150 TO 199 mg/dl BORDERLINE RISK 200 mg/dl AND GREATER HIGH RISK Performed By: #### 8 [id number] #### [facility] [address] [place] [address], [place] VLDL CHOL 22 mg/dL Normal 0-40 [facility] Comment on above: Order Comment: No: D o not add to previous draw Performed By: #### 8 [id number] #### [facility] [address] [place] [address], [place] MAGNESIUM BLOODon 07-14-2020 Magnesium [Mass/Vol] 2.1 mg/dL Normal 1.9-2.7 [facility] Comment on above: Order Comment: No: D o not add to previous draw Performed By: #### 8 [id number] #### [facility] [address] [place] [address], [place] Magnesium [Mass/Vol] 2.0 mg/dL Normal 1.9-2.7 [facility] Comment on above: Performed By: #### 8 [id number] #### [facility] [address] [place] [address], [place] PHOSPHORUS BLOODon Phosphate [Mass/Vol] 4.1 mg/dL Normal 2.5-5.0 [facility] Comment on above: Order Comment: No: D o not add to previous draw Performed By: #### 8 [id number] #### [facility] [address] [place] [address], [place] Phosphate [Mass/Vol] 4.0 mg/dL Normal 2.5-5.0 [facility] Comment on above: Performed By: #### 8 [id number] #### [facility] [address] [place] [address], [place] POC GLUCOSE LABon 07-14-2020 Glucose [Mass/Vol] 180 mg/dL High 70-100 [facility] Comment on above: Performed By: #### 8 [id number] ####[facility] [place] [address], [place] Glucose [Mass/Vol] 198 mg/dL High 70-100 [facility] Comment on above: Performed By: #### 5 7307, [id number] #### [facility] [address] [place] [address], [place] Glucose [Mass/Vol] 265 mg/dL High 70-100 [facility] Comment on above: Performed By: #### 8 [id number] #### [facility] [address] [place] [address], [place] Glucose [Mass/Vol] 305 mg/dL High 70-100 [facility] Comment on above: Performed By: #### 5 7307, [id number] #### [facility] [address] [place] [address], [place] Glucose [Mass/Vol] 301 mg/dL High 70-100 [facility] Comment on above: Performed By: #### 5 0103 #### [facility] [address] [facility] [place] [address], [place] PORTABLE CHEST 1 VIEWon 06-27 PORTABLE CHEST 1 VIEW [facility] Department of Radiology [address] [place] [address] Patient Name: RASHARD LYMAN : 1960 Sex: M Age: Race: White Pt. Location: [id number] Patient Status: I Ordered Date: 07/14/2020 1:40:00 [...] above Electronically signed: Patricia Damon. Transcribed by: [email or web address], User Resident: Electronically Signed by: PATRICIA DAMON @ 07/14/2020 03:24 PM Normal [facility] Comment on above: Order Comment: Evalu ate for Pneumothorax PORTABLE CHEST 1 VIEW [facility] Department of Radiology [address] [place] [id number] Patient Name: RASHARD LYMAN : 1960 Sex: M Age: Race: White Pt. Location: [id number] Patient Status: I Ordered Date: 07/13/2020 11:35:00 [...] reports Electronically signed: Valdemar Foster. Transcribed by: [email or web address], User Resident: SY [email or web address] Electronically Signed by: VALDEMAR FOSTER @ 07/14/2020 06:31 AM I personally read this/these film(s) with this resident Normal [facility] Comment on above: Order Comment: evalu ate for Effusion PROTEIN ELECT Truong 07-14-2020 Protein [Mass/Vol] 6.0 g/dL Normal 6.0-8.3 [facility] Comment on above: Performed By: #### 3 0318 #### [facility] [address] [place] [address], [facility] PROTEIN ELECT Normal [facility] Comment on above: Result Comment: Decr eased albumin and elevated alpha 1 and 2 suggests acute inflammation. Performed By: #### 3 0318 #### [facility] [address] [facility] PROTEIN ELECT URon 1 PROTEIN ELECT Urine protein electrophoresis suggests a nonselective nephropathy. Normal [facility] Comment on above: Performed By: #### 3 1944 #### [facility] [address] [facility] [place] [address], [facility] PROTEIN TOTAL BLOODon 2020 Protein [Mass/Vol] 6.7 g/dL Normal 6.0-8.3 [facility] Comment on above: Order Comment: Left Peural Effusion Performed By: #### 3 0318 #### [facility] [address] [facility]. [address] PROTHROMBIN TIMEon 1 INR Coag (PPP) [Relative time] 1.12 {INR} Normal 0.91-1.16 [facility] Comment on above: Order Comment: [...] CHEST 1995;[id number]. Performed By: #### 5 [id number], [id number] #### [facility] [address] [place] [address], [facility] PT Coag (PPP) [Time] 14.4 s Normal 12.3-14.8 [facility] Comment on above: Order Comment: No: D o not add to previous draw Result Comment: ALL RESULTS MUST BE INTERPRETED WITH RESPECT TO BLOOD DRAWING ARTIFACT OR DILUTION ERROR OF ANTICOAGULANT AT THE TIME OF SAMPLING. Performed By: #### 5 [id number], [id number] #### [facility] [address] [place] [address], [facility] SEDIMENTATION RATEon 021 SED RATE 32 mm/hr High 0-10 [facility] Comment on above: Performed By: #### 8 [id number] #### [facility] [address] [place] [address], [facility] SODIUM URINE RANDOMon 2020 Sodium (U) [Moles/Vol] 59 mmol/L Normal [facility] Comment on above: Order Comment: No: D o not add to previous draw Result Comment: Ther e are no established reference values for random urine specimens Performed By: #### 8 [id number] #### [facility] [address] [place] [address], [facility] T PROT FLUIDon 07-14-2020 Protein [Mass/Vol] 3.6 g/dL Normal [facility] Comment on above: Result Comment: The reference range and other method performance specifications have not been established for this test in fluids. the test result should be integrated into the clinical context for interpretation. Performed By: #### 3 1943 #### [facility] [address] [place] [id number], [facility] T PROT UR Loretta 07-14-2020 U TOTAL PROTEIN 859.0 mg/dL Normal [facility] Comment on above: Order Comment: No: D o not add to previous draw Result Comment: Ther e are no established reference values for random urine specimens Performed By: #### 8 [id number] #### [facility] [address] [place] [address], [facility] Performed By: #### 3 1943 #### [facility] [address] [place] [address], [facility] TROPONIN-Ion 07-14-2020 Troponin I.cardiac [Mass/Vol] 0.09 ng/mL High 0.00-0.04 [facility] Comment on above: Order Comment: No: D o not add to previous draw Result Comment: REFE RENCE RANGES: 0.00 - 0.04 ng/ml NORMAL 0.05 - 0.50 ng/ml INDETERMINATE > 0.50 ng/ml CONSISTENT WITH AN M.I. Performed By: #### 8 [id number] #### [facility] [address] [facility] [place] [address], [facility] Troponin I.cardiac [Mass/Vol] 0.07 ng/mL High 0.00-0.04 [facility] Comment on above: Order Comment: No: D o not add to previous draw Result Comment: REFE RENCE RANGES: 0.00 - 0.04 ng/ml NORMAL 0.05 - 0.50 ng/ml INDETERMINATE > 0.50 ng/ml CONSISTENT WITH AN M.I. Performed By: #### 8 [id number] #### [facility] [address] [facility] [place] [address], [facility] TSH3on 07-14-2020 TSH 3RD GENERATION 3.28 uIU/mL Normal 0.34-5.60 [facility] Comment on above: Order Comment: No: D o not add to previous draw Performed By: #### 8 [id number] #### [facility] [address] [facility] [place] [address], [facility] URIC ACID BLOODon 07-14-2020 Urate [Mass/Vol] 7.1 mg/dL Normal 4.4-7.6 [facility] Comment on above: Performed By: #### 8 [id number] #### [facility] [address] [facility] [place] [address], [facility] URINALYSIS REFLEXon 07-15-19 21 Appearance (U) SL CLOUDY Abnormal CLEAR [facility] Comment on above: Order Comment: Left Peural Effusion Performed By: #### 3 0318 #### [facility] [address] [place] [address], [place] Bilirubin Ql (U) Negative Normal NEGATIVE [facility] Comment on above: Order Comment: Left Peural Effusion Performed By: #### 3 0318 #### [facility] [address] [place] [address], [place] Color (U) YELLOW Normal YELLOW [facility] Comment on above: Order Comment: Left Peural Effusion Performed By: #### 3 0318 #### [facility] [address] [place] [address], [place] EPIS FEW Normal FEW,OCC,NONE SEEN [facility] Comment on above: Order Comment: Left Peural Effusion Performed By: #### 3 0318 #### [facility] [address] [place] [address], [place] Glucose Ql (U) >=500 Abnormal NEGATIVE [facility] Comment on above: Order Comment: Left Peural Effusion Performed By: #### 3 0318 #### [facility] [address] [place] [address], [place] Hemoglobin Ql (U) TRACE Abnormal NEGATIVE [facility] Comment on above: Order Comment: Left Peural Effusion Performed By: #### 3 0318 #### [facility] [address] [place] [address], [place] KETONE TRACE Abnormal NEGATIVE [facility] Comment on above: Order Comment: Left Peural Effusion Performed By: #### 3 0318 #### [facility] [address] [place] [address], [place] LEUK JACIEL Negative Normal NEGATIVE [facility] Comment on above: Order Comment: Left Peural Effusion Performed By: #### 3 0318 #### [facility] [address] [place] [address], [place] MUCUS THREADS OCC Abnormal NONE SEEN [facility] Comment on above: Order Comment: Left Peural Effusion Performed By: #### 3 0318 #### [facility] [address] [place] [address], [facility] Nitrite Ql (U) Negative Normal NEGATIVE [facility] Comment on above: Order Comment: Left Peural Effusion Performed By: #### 3 0318 #### [facility] [address] [place] [address], [facility] pH (U) 6.0 [pH] Normal 5.0-8.0 [facility] Comment on above: Order Comment: Left Peural Effusion Performed By: #### 3 0318 #### [facility] [address] [facility] [place] [address], [facility] Protein Ql (U) >=500 Abnormal NEGATIVE [facility] Comment on above: Order Comment: Left Peural Effusion Performed By: #### 3 0318 #### [facility] [address] [facility]. [address] RBC 0-2 Abnormal NONE SEEN [facility] Comment on above: Order Comment: Left Peural Effusion Performed By: #### 3 0318 #### [facility] [address] [facility]. [address] SPEC GRAV 1.017 Normal 1.015-1.020 [facility] Comment on above: Order Comment: Left Peural Effusion Performed By: #### 3 0318 #### [facility] [address] [facility] [place] [address], [facility] WBC UA 3-5 Abnormal NONE SEEN [facility] Comment on above: Order Comment: Left Peural Effusion Performed By: #### 3 0318 #### [facility] [address] Vital Signs Date Time Vital Sign Value Performing Clinician Facility 03-21-2021 15:40-0500 Body height 193.04 cm Kike Pollack Other [facility] Other 03-21-2021 15:40-0500 Body mass index (BMI) [Ratio] 39.02 kg/m2 Kike Pollack Other [facility] Other 03-21-2021 15:40-0500 Body temperature 97.8 [degF] Kike Pollack Other [facility] Other 03-21-2021 15:40-0500 Body weight 145.42 kg Kike Pollack Other [facility] Other 03-21-2021 15:40-0500 Diastolic blood pressure 84 mm[Hg] Kike Pollack Other [facility] Other 03-21-2021 15:40-0500 Respiratory rate 18 /min Kike Pollack Other [facility] Other 03-21-2021 15:40-0500 SaO2% (BldA) [Mass fraction] 96 % Kike Pollack Other [facility] Other 03-21-2021 15:40-0500 Systolic blood pressure 137 mm[Hg] Kike Pollack Other [facility] Other 08-25-2020 12:24-0400 Heart rate 82 /min Jose Valone Work Phone: [facility] 08-25-2020 12:24-0400 Respiratory rate 20 /min Jose Valone Work Phone: [facility] 08-25-2020 11:17-0400 Body temperature 98.7 [degF] Jose Valone Work Phone: [facility] 08-25-2020 11:17-0400 Diastolic blood pressure 94 mm[Hg] Jose Valone Work Phone: [facility] 08-25-2020 11:17-0400 SaO2% (BldA) [Mass fraction] 96 % Jose Valone Work Phone: [facility] 08-25-2020 11:17-0400 Systolic blood pressure 183 mm[Hg] Jose Valone Work Phone: [facility] 08-25-2020 06:00-0400 Body weight 160.5 kg Jose Valone Work Phone: [facility] 08-19-2020 14:17-0400 Body height 193.04 cm Jose Valone Work Phone: [facility] 08-18-2020 21:22-0400 Body height 193.04 cm Jose Valone Work Phone: [facility] 08-18-2020 21:22-0400 Body mass index (BMI) [Ratio] 43.8 kg/m2 Jose Valone Work Phone: [facility] 08-18-2020 21:22-0400 Body temperature 97.6 [degF] Jose Valone Work Phone: [facility] 08-18-2020 21:22-0400 Body weight 163.3 kg Jose Valone Work Phone: [facility] 08-18-2020 21:22-0400 Diastolic blood pressure 80 mm[Hg] Jose Valone Work Phone: [facility] 08-18-2020 21:22-0400 Heart rate 105 /min Jose Valone Work Phone: [facility] 08-18-2020 21:22-0400 Respiratory rate 18 /min Jose Valone Work Phone: [facility] 08-18-2020 21:22-0400 SaO2% (BldA) [Mass fraction] 94 % Jose Valone Work Phone: [facility] 08-18-2020 21:22-0400 Systolic blood pressure 160 mm[Hg] Jose Valone Work Phone: [facility] Encounters Encounter Date Encounter Type Care Provider Facility Start: 09-03-2023 End: 09-04-2023 ambulatory JOSE JUAREZ [facility] Start: 07-31-2023 End: 08-01-2023 ambulatory JOSE Anmol JUAREZ [facility] Start: 07-02-2023 End: 07-03-2023 ambulatory JOSE JUAREZ [facility] Start: 06-04-2023 End: 06-05-2023 ambulatory JOSE Anmol CANALESKERMIT [facility] Start: 05-31-2023 End: 06-01-2023 ambulatory JUANCARLOS BARRETTNilo [facility] Start: 05-06-2023 End: 05-07-2023 ambulatory JOSE Corea LARRY [facility] Start: 04-19-2023 End: 04-20-[address] [facility] Start: 02-27-2023 End: 02-28-2023 ambulatory CHINO ELLIOTT [facility] Start: 09-11-2022 End: 09-12-2022 ambulatory CHINO ELLIOTT Facility:[facility] Start: 08-28-2022 End: 08-29-2022 ambulatory CHINO ELLIOTT Facility:H1 Start: 08-24-2022 End: 08-25-[address] JOSE JUAREZ Facility:H1 Start: 08-20-2022 End: 08-21-[address] OJSE JUAREZ Facility:H1 Start: 08-19-2022 Encounter for preprocedural cardiovascular examination CHINO ELLIOTT [facility] Start: 08-19-2022 Encounter for preprocedural laboratory examination CHINO ELLIOTT [facility] Start: 08-19-2022 Encounter for preprocedural respiratory examination CHINO Hopson [facility] Start: 08-15-2022 End: 08-16-[address] [...] Facility:H1 Start: 02-02-2022 End: 02-03-2022 ambulatory CHINO ELLIOTT Facility:H1 Start: 01-26-2022 End: 01-27-2022 ambulatory CHINO ELLIOTT Facility:H1 Start: 01-18-2022 End: 01-19-2022 ambulatory CHINO ELLIOTT Facility:H1 Start: 01-15-2022 End: 01-15-2022 ambulatory CHINO ELLIOTT Facility:H1 Start: 01-12-2022 End: 01-13-2022 ambulatory CHINO ELLIOTT Facility:H1 Start: 01-10-2022 End: 01-11-2022 ambulatory CHINO ELLIOTT Facility:H1 Start: 01-02-2022 End: 01-03-2022 [facility]ulatory [facility] Start: 12-25-2021 End: 12-26-2021 ambulatory CHINO Hopson [facility] Facility:H1 Start: 12-21-2021 End: 12-22-2021 ambulatory SHAIKH Patricia DAVIS Facility:H1 Start: 12-18-2021 End: 12-19-2021 ambulatory CHINO Hopson [facility] Facility:H1 Start: 12-15-2021 End: 12-16-2021 ambulatory CHINO Hopson [facility] Start: 12-11-2021 End: 12-12-2021 ambulatory CHINO Hopson [facility] Facility:H1 Start: 11-30-2021 End: 12-01-[address] CARLOS EDUARDO SU . Facility:H1 Start: 11-22-2021 End: 11-23-[address] CARLOS EDUARDO SU . Facility:H1 Start: 11-21-2021 End: 11-22-2021 ambulatory CHINO Mark Anthony [facility] Start: 11-14-[address] CARLOS EDUARDO SU . Faci lity:H1 Start: 11-13-2021 End: 11-14-2021 ambulatory CHINO Hopson [facility] Facility[facility] Start: 11-07-2021 End: 11-08-2021 ambulatory CHINO Hopson [facility] Facility:H1 Start: 10-31-2021 End: 11-01-2021 ambulatory CHINO Hopson [facility] Start: 10-24-2021 End: 10-25-2021 ambulatory CHINO Hopson [facility] Facility:H1 Start: 10-17-2021 End: 10-18-2021 ambulatory CHINO Hopson [facility] Facility:H1 Start: 10-09-2021 End: 10-10-2021 ambulatory CHINO Hopson [facility] Facility:H1 Start: 03-21-2021 End: 03-21-2021 ambulatory Kike Pollack Other [employer] Other Start: 03-21-2021 Office outpatient vi sit 25 minutes Kike Pollack [facility] Start: 10-20-2020 End: 10-21-2020 ambulatory UNKNOWN PROVIDER Facility:[facility] Start: 09-28-2020 End: 09-28-2020 Patient encounter procedure Jose Larry Work Phone: -Respiratory Therapy Start: 09-06-2020 End: 09-06-2020 Patient encounter procedure Jose Juarez Work Phone: -Electrodiagnostics Start: 08-18-2020 End: 08-25-2020 Evaluation and management of inpatient Jose Juarez Work Phone: -[facility] Start: 07-13-2020 End: 07-22-2020 Evaluation and management of inpatient SAVANNAH REYNOLDS Facility:[facility] Procedures Date Procedure Procedure Detail Performing [...] OF LEFT PLE URAL CAVITY, PERCUTANEOUS APPROACH NIMA WYNNE Start: 07-14-2020 DRAINAGE OF LEFT PLE URAL CAVITY, PERCUTANEOUS APPROACH NIMA WYNNE Start: 07-14-2020 ULTRASONOGRAPHY OF R IGHT AND LEFT HEART, TRANSESOPHAGEAL LOSR Laura COTTONNILTON Plan of Treatment Date Care Activity Detail Author Start: 08-18-2020 Bacteria identified in Blood by Culture Blood Culture [facility] Patient referral [facility] Immunizations Immunization Date Immunization Notes Care Provider Fa cility 05-27-2015 influenza, seasonal, injectable Kike Gomesangela Other [facility] Other 05-27-2015 pneumococcal polysaccharide vaccine, 23 valent Kike Jaki Other [employer] Other Payers Date Payer Category Payer Unknown [id number] 1960 Unknown [id number] 2.16.8 40.1.654142.3.579.2.647 1960 Unknown [id number] 2.16. 840.1.020430.3.579.2.732 1960 Unknown [id number] 2.16.84 0.1.055652.3.579.2.593 1960 Unknown [id number] 2.16.84 0.1.323782.3.579.2.593 1960 Unknown [id number] 2.16.84 0.1.685460.3.579.2.593 1960 Unknown [id number] 2.16.84 0.1.813013.3.579.2.593 1960 Unknown [id number] 2.16.84 0.1.035095.3.579.2.593 1960 Unknown [id number] 2.16.84 0.1.802938.3.579.2.593 1960 Unknown [id number] 2.16.84 0.1.664666.3.579.2.593 1960 Unknown [id number] 2.16.84 0.1.869405.3.579.2.593 1960 Unknown [id number] 2.16.84 0.1.524964.3.579.2.593 1960 Unknown [id number] 2.16.84 0.1.527262.3.579.2.593 1960 Unknown [id number] 2.16.84 0.1.452856.3.579.2.593 1960 Unknown [id number] 2.16.84 0.1.886426.3.579.2.593 1960 Unknown [id number] 2.16.84 0.1.838584.3.579.2.593 1960 Unknown [id number] 2.16.84 0.1.298975.3.579.2.593 1960 Unknown [id number] 2.16.84 0.1.501918.3.579.2.593 1960 Unknown [id number] 2.16.84 0.1.109952.3.579.2.593 1960 Unknown [id number] 2.16.84 0.1.604417.3.579.2.593 1960 Unknown [id number] 2.16.84 0.1.932250.3.579.2.593 1960 Unknown [id number] 2.16.84 0.1.692143.3.579.2.593 1960 Unknown [id number] 2.16.84 0.1.440077.3.579.2.593 1960 Unknown [id number] 2.16.84 0.1.202790.3.579.2.593 1960 Unknown [id number] 2.16.84 0.1.177378.3.579.2.593 1960 Unknown [id number] 2.16.84 0.1.652298.3.579.2.593 1960 Unknown [id number] 2.16.84 0.1.266462.3.579.2.593 1960 Unknown [id number] 2.16.84 0.1.145661.3.579.2.593 1960 Unknown [id number] 2.16.84 0.1.777236.3.579.2.593 1960 Unknown [id number] 2.16.84 0.1.132240.3.579.2.593 1960 Unknown [id number] 2.16.84 0.1.269938.3.579.2.593 1960 Unknown [id number] 2.16.84 0.1.444395.3.579.2.593 1960 Unknown [id number] 2.16.84 0.1.392842.3.579.2.593 1960 Unknown [id number] 2.16.84 0.1.526126.3.579.2.593 1960 Unknown [id number] 2.16.84 0.1.602154.3.579.2.593 1960 Unknown [id number] 2.16.84 0.1.526973.3.579.2.593 1960 Unknown [id number] 2.16.84 0.1.529446.3.579.2.593 1960 Unknown [id number] 2.16.84 0.1.968731.3.579.2.593 1960 Unknown [id number] 2.16.84 0.1.471240.3.579.2.593 1960 Unknown [id number] 2.16.84 0.1.276890.3.579.2.593 1960 Unknown [id number] 2.16.84 0.1.829686.3.579.2.593 1960 Unknown [id number] 2.16.84 0.1.175412.3.579.2.593 1960 Unknown [id number] 2.16.84 0.1.257515.3.579.2.593 1960 Unknown [id number] 2.16.84 0.1.087211.3.579.2.593 1960 Unknown [id number] 2.16.84 0.1.782404.3.579.2.593 1960 Unknown [id number] 2.16.84 0.1.191977.3.579.2.593 1960 Unknown [id number] 2.16.84 0.1.442165.3.579.2.593 1960 Unknown [id number] 2.16.8 40.1.232805.3.579.2.1286 1960 Unknown [id number] 2.16.8 40.1.988498.3.579.2.1286 1960 Unknown [id number] 2.16.8 40.1.456987.3.579.2.1286 1960 Unknown [id number] 2.16.8 40.1.628845.3.579.2.1286 1960 Unknown [id number] 2.16.84 0.1.673997.3.579.2.1286 1960 Unknown [id number] 2.16.84 0.1.381237.3.579.2.1286 1959 Unknown [id number] Medicare Self Pay [id number] Self-pay Self Pay [id number] Social History Date Type Detail Facility Tobacco smoking status INIS Unknown if ever smoked [facility] Start: 1960 Sex Assigned At Male F [facility] Start: 08-18-2020 Tobacco smoking status NHIS Unknown if ever smoked [facility] Start: 08-22-2020 Tobacco smoking status NHIS Never smoked tobacco (finding) [facility] Sex Assigned At Sex Assigned At Bir th [facility] [employer] Other Goals Date Patient Goal Desired Activity /State Functional Status Date Assessment Result Facility 08-25-2020 Functional status Patient at Baseline [facility] Mental Status Date Assessment Result Facility 08-25-2020 Cognitive function Cognitive Sta tus Patient at Baseline [facility] Clinical Notes 07-15-2020 to 08-20-2022 Note [...] authenticated by: PRISCA SANDERSON Date: 2022-08-20 13:00 [facility] 08-15-2022 Note EXAM: XR CHEST 2 [...] authenticated by: CHINO CABALLERO Date: 2022-08-15 15:06 [facility] 08-01-2022 Note PROCEDURE: XR FOOT L [...] by: JAMESON SALGUERO Date: 2022-08-01 07:49 [facility] 03-01-2022 Note CONSULTATION CONSULTATION DATE: 03/01/2022 [...] with certain activities such as standing, walking, 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 [facility] 03-01-2022 Note CONSULTATION PROCEDURE DATE: 03/01/2022 [...] pattern and patient tolerated procedure well. [facility] 12-22-2021 Note PROCEDURE: XR ANKLE LT [...] by: PRISCA SANDERSON Date: 2021-12-22 10:12 [facility] 12-22-2021 Note PROCEDURE: XR ANKLE LT [...] by: PRISCA SANDERSON Date: 2021-12-22 10:12 [facility] 12-22-2021 Note PROCEDURE: XR ANKLE LT [...] authenticated by: PRISCA SANDERSON Date: 2021-12-22 10:12 [facility] 12-22-2021 Note PROCEDURE: XR ANKLE LT 2V HISTORY: Pain ; left ankle external fixation application COMPARISON: None. FINDINGS: BONES:3 intraoperative spot fluoroscopic images demonstrate external fixation device surrounding the left ankle. IMPRESSION: External fixation device application. Electronically authenticated by: PRISCA SANDERSON Date: 2021-12-22 10:07 [facility] 12-12-2021 Note PROCEDURE: XR FOOT L [...] authenticated by: PRISCA SANDERSON Date: 2021-12-12 08:04 [facility] 11-30-2021 Note CONSULTATION The patient returns [...] in clinic in three months' time. [facility] 11-22-2021 Note CONSULTATION CONSULTATION DATE: 11/22/2021 [...] to the clinic to receive those. [facility] 11-14-2021 Note PROCEDURE: XR FOOT L [...] by: PRISCA SANDERSON Date: 2021-11-14 15:42 [facility] 11-07-2021 Note PROCEDURE: XR FOOT L [...] by: JAMESON SALGUERO Date: 2021-11-07 19:28 [facility] 03-21-2021 Evaluation note Encounter Date Diagnosis [...] takes midodrine as well as stated above. [employer] Other 03-27-2021 NoteMR#: [id number] I [facility] Pt. Name: Rashard Lyman Admitted: 07/13/2020 Discharged: [...] chest pain. Also, there is mention on [place] records of large inferior/lateral wall abnormality in [...] ON DISCHARGE: A (more content not included)...[facility]03-19-2021 NoteMR#: [id number] [facility] Pt. Name: Rashard Lyman Surgery Date: 07/14/2020 Room #: [id number] Date of : 1960 PROCEDURE NOTE ATTENDING: [...] Pham MD Date Trans: 07/15/2020 01:32 P/ [id number] cc: Nima Wynne MD [address] [place] [id number] NoteMR#: [id number] [facility] Pt. Name: Rashard Lyman Surgery Date: 07/14/2020 Room #: [id number] Date of : 1960 PROCEDURE NOTE ATTENDING: Nima Wynne MD Procedure: Left sided US guided Thoracentesis Pre-procedure Diagnosis: Left pleural effusion Post-procedure Diagnosis: same as above Prior to Procedure: Informed Consent:The risks, benefits, indications, potential complications, and alternatives were explained to the patient/family and informed consent obtained Attending Staff: Nima Wynne Resident/Fellow/PMO MANAGER: Davis Pham Indications: Nura Munoz is [...] Wynne MD Date Trans: 07/15/2020 12:53 P/ [id number] Diagnosis Onset Date Resolution Status Hyperglycemia acute Pneumonia acute Psoriasis acute 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 acute CKD (chronic kidney disease) stage 4, GFR 15-29 ml/min chronic COPD (chronic obstructive pulmonary disease) chronic 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 GERD (gastroesophageal reflux disease) chronic Obesities, morbid chronic Peripheral vascular occlusive disease chronic Status post amputation of toe of right foot [facility]* Diagnosis Onset Date Resolution Status [...] (chronic obstructive pulmonary disease) chronic 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 GERD (gastroesophageal reflux disease) chronic Hypertension chronic [id number] chronic Obesities, morbid chronic Peripheral vascular occlusive disease chronic Status post amputation of toe of right foot [facility] general Narrative - Reported* Type Description Date Medical History ESRD Medical History MO Medical History HTN Medical History DM Medical History COPD Medical History Allergic reaction to Vicryl Sutures use Monofilament sutures Medical History LOW BACK PAIN/ HAIRLINE FRACTURE Surgical History Dialysis catheter placements Surgical History Right 5th toe amputation 5 Surgical History Creation rigth radiocephalic AV F [...] HIS LOWER BACK Hospitalization History see above [facility] Other Hospital Discharge instructions Additional Instructions You are scheduled for an outpatient follow up ECHOCARDIOGRAM in 2 weeks at [facility] to re-assess your pericardial effusions on 09/06/2020 [...] knee Educate on high risk fall precautions [facility] Assessments No Assessments Information [...] 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 GERD (gastroesophageal reflux disease) Hypertension [id number] Obesities, morbid Peripheral vascular occlusive disease Status [...] 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 GERD (gastroesophageal reflux disease) Hypertension [id number] Obesities, morbid Peripheral vascular occlusive disease Status [...] 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 GERD (gastroesophageal reflux disease) Hypertension [id number] Obesities, morbid Peripheral vascular occlusive disease Status post amputation of toe of right foot Summary Purpose Family History No Family History Records Found Additional Source Comments (unrecognized sect ion and content) No Status Records FoundNo Status Records FoundNo Status Records FoundNo Status Records FoundNo Status Records FoundNo Status Records Found INFORMATION SOURCE (unrecogn ized section and content) DATE CREATED AUTHOR 09/11/2020 [facility] DATE CREATED AUTHOR AUTHOR'S ORGANIZ ATION 10/21/2020 [facility] DATE CREATED AUTHOR AUTHOR'S ORGANIZ ATION 08/03/2021 [facility] DATE CREATED AUTHOR AUTHOR'S ORGANIZ ATION 10/05/2022 [facility] DATE CREATED AUTHOR AUTHOR'S ORGANIZ ATION 06/03/2023 [facility] DATE CREATED AUTHOR AUTHOR'S ORGANIZ ATION 09/05/2023 [facility] Goals (unrecognized section and content) Goals may [...] BE BASED ON THE PRIMARY CLINICAL RECORDS. [facility]. provides no warranty or guarantee of the accuracy or completeness of information in this document.
== END 2023-09-18 09:01 | disposition home or self-care (01) ==
LOC: WC 09-19 08:41
PROVIDERS: PCP Podiatrist Foot & Ankle Surgery; Visit Provider Podiatrist Foot & Ankle Surgery
DX: E11.621 Type 2 diabetes mellitus with foot ulcer (principal); L97.422 Non-pressure chronic ulcer of left heel and midfoot with fat layer exposed
CPT/HCPCS: 29445

== ENCOUNTER 2023-09-30 16:13 | Outpatient (OUT) | payer BC, SELFPAY | END 2023-09-30 16:14 | disposition home or self-care (01) | LOC: WC 16:13 | PROVIDERS: PCP Podiatrist Foot & Ankle Surgery; Visit Provider Physician Assistant | DX: E11.621 Type 2 diabetes mellitus with foot ulcer (principal); L97.422 Non-pressure chronic ulcer of left heel and midfoot with fat layer exposed | CPT/HCPCS: 11043; 29445 ==

== ENCOUNTER 2023-10-14 15:57 | Outpatient (OUT) | payer BC, SELFPAY | END 2023-10-14 15:58 | disposition home or self-care (01) | LOC: WC 15:57 | PROVIDERS: PCP Podiatrist Foot & Ankle Surgery; Visit Provider Physician Assistant | DX: E11.621 Type 2 diabetes mellitus with foot ulcer (principal) | CPT/HCPCS: 29445 ==

== ENCOUNTER 2023-10-21 14:00 | Outpatient (OUT) | payer BC, SELFPAY | END 2023-10-21 14:01 | disposition home or self-care (01) | LOC: WC 15:38 | PROVIDERS: PCP Podiatrist Foot & Ankle Surgery; Visit Provider Physician Assistant | DX: E11.621 Type 2 diabetes mellitus with foot ulcer (principal); L97.422 Non-pressure chronic ulcer of left heel and midfoot with fat layer exposed | CPT/HCPCS: 11043 ==

== ENCOUNTER 2023-10-24 15:08 | Outpatient (OUT) | payer BC, SELFPAY | END 2023-10-24 15:09 | disposition home or self-care (01) | LOC: WC 15:08 | PROVIDERS: PCP Podiatrist Foot & Ankle Surgery; Visit Provider Podiatrist Foot & Ankle Surgery | DX: E11.621 Type 2 diabetes mellitus with foot ulcer (principal); L97.422 Non-pressure chronic ulcer of left heel and midfoot with fat layer exposed | CPT/HCPCS: 29445 ==

== ENCOUNTER 2023-10-30 15:05 | Outpatient (OUT) | payer BC, SELFPAY | END 2023-10-30 15:06 | disposition home or self-care (01) | LOC: WC 15:05 | PROVIDERS: PCP Podiatrist Foot & Ankle Surgery; Visit Provider Podiatrist Foot & Ankle Surgery | DX: E11.621 Type 2 diabetes mellitus with foot ulcer (principal); L97.422 Non-pressure chronic ulcer of left heel and midfoot with fat layer exposed | CPT/HCPCS: 29445 ==

== ENCOUNTER 2023-11-04 16:07 | Outpatient (OUT) | payer BC, SELFPAY | END 2023-11-04 16:08 | disposition home or self-care (01) | LOC: WC 16:07 | PROVIDERS: PCP Podiatrist Foot & Ankle Surgery; Visit Provider Physician Assistant | DX: E11.621 Type 2 diabetes mellitus with foot ulcer (principal); L97.422 Non-pressure chronic ulcer of left heel and midfoot with fat layer exposed | CPT/HCPCS: 11043; 29445 ==

== ENCOUNTER 2023-11-13 15:06 | Outpatient (OUT) | payer BC, SELFPAY | END 2023-11-13 15:07 | disposition home or self-care (01) | LOC: WC 15:07 | PROVIDERS: PCP Podiatrist Foot & Ankle Surgery; Visit Provider Podiatrist Foot & Ankle Surgery | DX: E11.621 Type 2 diabetes mellitus with foot ulcer (principal); L97.422 Non-pressure chronic ulcer of left heel and midfoot with fat layer exposed | CPT/HCPCS: 29445 ==

== ENCOUNTER 2023-11-19 15:01 | Outpatient (OUT) | payer BC, SELFPAY | END 2023-11-19 15:02 | disposition home or self-care (01) | LOC: WC 15:01 | PROVIDERS: PCP Podiatrist Foot & Ankle Surgery; Visit Provider Podiatrist Foot & Ankle Surgery | DX: E11.621 Type 2 diabetes mellitus with foot ulcer (principal); L97.422 Non-pressure chronic ulcer of left heel and midfoot with fat layer exposed | CPT/HCPCS: G0463 ==

== ENCOUNTER 2023-11-19 15:30 | Outpatient (OUT) | payer BC, SELFPAY ==
--- NOTE | 2023-11-19 15:38 | US_ITS ---
The [address] [address] Patient Name: RASHARD TAN MRN: [id number] date: 1960 Sex: M Assigned Patient Location: US Current Patient Location: US Accession/Order Number: [id number] Exam Date: 11/19/2023 16:06 Report Date: 11/19/2023 17:24 At the request of: FARZAD ARCHER Procedure: US venous doppler LE LT EXAM: US venous doppler LE LT HISTORY: Left Leg Swelling COMPARISON: 01/28/2023 TECHNIQUE: Multiple sonographic images of the deep veins of the left lower extremity were obtained, supplemented with Doppler. FINDINGS: The deep veins of the left lower extremity are fairly well-visualized the groin to the mid calf. No filling defect is identified to indicate a thrombus. There is normal compression augmentation to flow. Again seen are hypoechoic nodule structures in the lower calf/ankle and in the region of the groin. The etiology is uncertain. US/US venous doppler LE LT IMPRESSION: There is no direct or indirect evidence of deep vein thrombosis in the left lower extremity at this time, and similar findings were noted in the prior study. Small nodular structures are noted in the groin and lower calf, of uncertain etiology. These could conceivably be lymph nodes, and the overall appearance is unchanged. Electronically authenticated by: CHINO CABALLERO Date: 11/19/2023 17:24
--- OUTSIDE RECORDS SUMMARY | 2023-11-19 15:49 | XMS_ITS | CCD ---
Author Organization [facility] Care Team Providers Care Cover Cutter Name Role Phone Jose Juarez Primary Care Provider [phone] Eugene Morel Admit Provider Eugene Morel Attending Provider [phone] Gordon Ewing Attending Provider [phone] Gautam Bazan Attending Provider [phone] SAVANNAH REYNOLDS Admitting Unavailable SAVANNAH REYNOLDS Attending Unavailable JOSE JUAREZ Primary Care Unavailable JOSE JUAREZ Referring Unavailable [place] Procedure Practitioner Unavailab TRISHA Ozuna Surgeon Unavailable NIMA WYNNE Surgeon Unavailable [place] Procedure Practitioner Unavailab Jose Andres Primary Care Provider [phone] Eugene Morel Admit Provider [phone] Gordon Ewing Attending Provider [phone] Gautam Bazan Attending Provider Latrice Lehman [...] Care Unavailable SU ., DR CARLOS EDUARDO Camrona Admitting Unavailable SU ., DR CARLOS EDUARDO [...] HERNANDEZ ., MARGIE Consulting Unavailable HIGHLANDER, CHINO D Consulting Unavailable HIGHLANDER, PETER D Attending Unavailable VALONE, DR GARCIA Primary Care Unavailable HIGHLANDER, CHINO Hopson Admitting Unavailable HIGHLANDER, CHINO Hopson Attending Unavailable VALONE, DR GARCIA Primary Care Unavailable HIGHLANDER, CHINO D Admitting Unavailable WEST, DR JAMESON Mckeon Consulting Unavailable HIGHLANDER, PETER D Consulting Unavailable HIGHLANDER, PETER D Admitting Unavailable HIGHLANDER, PETER D Consulting Unavailable JOSEANDER, CHINO D Attending Unavailable [...] Unavailable VALONE, DR GARCIA Primary Care Unavailable HIGHLHERNESTO, CHINO Hopson Attending Unavailable VALONE, DR GARCIA Primary Care Unavailable HIGHLANDER, CHINO D Admitting Unavailable HIGHLANDER, PETER D Referring Unavailable RALOFSKY, JUANCARLOS Primary Care Unavailable RALOFSKY, JUANCARLOS Primary Care Unavailable VALONE, JOSE L Referring [...] JR, JOSE L Primary Care Unavailable HIGHLANDER, PETER D Referring Unavailable VALONE JR, JOSE L Primary Care Unavailable Unavailable Unavailable Unavailable Allergies Allergy Classification Reported Allergen(s) Allergy Type Date of Onset Reaction(s) Facility exenatide (1 source) exenatide Drug Allergy 07-14-19 [facility] Repository NSAIDs (5 sources) celecoxib; Translations: [Celebrex] Drug Allergy 07-14-19 21 Difficulty Breathing [facility] Repository Phenolphthalein (1 source) Phenolphthalein Drug Allergy 07-14-19 [facility] Repository (3 sources) celecoxib; Translations: [celecoxib] Drug Allergy 07-21-19 Difficulty Breathing, bad for kidney [facility] Repository (2 sources) Aspirin; Translations: [ASPIRIN] Drug Allergy 07-21-19 bad for kidney [facility] Repository (1 source) Amoxicillin Drug Allergy 07-09-[address] [facility] Repository (1 source) celecoxib Drug Allergy 07-09-[address] [facility] Repository (1 source) exenatide Drug Allergy 07-09-[address] [facility] Repository (1 source) Phenolphthalein Drug Allergy 07-09-[address] [facility] Repository (1 source) exenatide; Translations: [EXENATIDE] [...] (severe)] Onset: 1 Resolved: 1 Chronic Chronic kidney disease (1 source) Chronic kidney disease; Translations: [Chronic kidney disease, stage 3 unspecified] Onset: 4 Chronic obstructive pulmonary disease and bronchiectasis (10 [...] D/O SINGLE EPIS UNS] Onset: 2 Chronic Nutritional deficiencies (1 source) Vitamin D deficiency, unspecified; Translations: [Vitamin D deficiency, unspecified] Onset: 4 Chronic Other acquired deformities (1 source) Contracture, left ankle; Translations: [CONTRACTURE LEFT ANKLE] Onset: 3 Chronic Other aftercare (6 sources) Other nursing home (current) drug therapy; Translations: [OTH OBIEE OBIA SOLUTION ARCHITECT CURRENT DRUG THERAPY] Onset: 3 Episodic Other [...] sources) Pleurodynia; Translations: [Painful respiration] Episodic Other lower respiratory disease (5 sources) Shortness of breath; Translations: [SHORTNESS OF BREATH] Onset: 3 Episodic Other lower respiratory disease (1 source) Other forms of dyspnea; Translations: [Other forms of dyspnea] Onset: 4 Episodic Other nutritional; endocrine; and metabolic disorders (5 sources) Morbid obesity; Translations: [Morbid (severe) obesity due to excess calories] Chronic Other nutritional; endocrine; and metabolic disorders (5 sources) Morbid (severe) obesity due to excess calories; Translations: [Morbid obesity] Onset: 2 Chronic Other screening for suspected conditions (not mental disorders or infectious disease) (1 source) Encounter for screening for malignant neoplasm of prostate; Translations: [Encounter for screening for malignant neoplasm of prostate] Onset: 4 Episodic Kristin-; endo-; and myocarditis; cardiomyopathy (except that [...] Onset: 06-27-2022 Episodic Other aftercare (1 source) skilled nursing (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; Translations: [LONGTERM CURRENT USE OF INSULIN] Onset: 01-25-2022 Episodic [...] BODY REGION SEQ] Onset: 03-27-2022 Episodic Other skin disorders (1 source) Nail [...] BLOOD UREA NITROGENon 2023 Urea nitrogen [Mass/Vol] 35 mg/dL High -27 [facility] Comment on above: Performed By: #### B ALCON, CBCA, 1987-08, 99216-9 #### [facility] ([id number]) [address] [place] [address] 74221 #### 20763-1 #### [facility] ([id number]) [address] [place] [address] CALCIUMon 10-23-2023 Calcium [Mass/Vol] 8.1 mg/dL Low 8.5-10.5 [facility] Comment on above: Performed By: #### B ALCON, CBCA, 1987-08, 54438-9 #### [facility] ([id number]) [address] [place] [address] 95962 #### 24105-1 #### [facility] ([id number]) [address] [facility], [address] [place] [address] CBC AND AUTO DIFFon 10-23-19 24 ABSOLUTE BASOPHIL 0.0 X10E9/L Normal 0.0-0.2 [facility] Comment on above: Performed By: #### Laura RONDON, CBCA, 1987-08, 23462-1 #### [facility] ([id number]) [address] [place] [address] 90303 #### 98374-8 #### [facility] ([id number]) [address], [address] [place] [address] ABSOLUTE NEUTROPHIL 5.4 X10E9/L Normal 1.5-6.6 [facility] Comment on above: Performed By: #### B ALCON, CBCA, 1987-08, 01052-4 #### [facility] ([id number]) [address] [place] [address] 09867 #### 78578-3 #### [facility] ([id number]) [address], [address] [place] [address] Basophils/100 WBC (Bld) 0.5 % Normal [facility] Comment on above: Performed By: #### Laura RONDON CBCA, 1987-08, 60539-5 #### [facility] ([id number]) [address] [place] [address] 00277 #### 69211-2 #### [facility] ([id number]) [address], [address] [place] [address] Eosinophils (Bld) [#/Vol] 0.3 10*3/uL Normal 0.0-0.4 [facility] Comment on above: Performed By: #### Laura RONDON CBCA, 1987-08, 51423-7 #### [facility] ([id number]) [address] [place] [address] 01961 #### 53936-8 #### [facility] ([id number]) [address], [address] [place] [address] Eosinophils/100 WBC (Bld) 3.2 % Normal [facility] Comment on above: Performed By: #### Laura RONDON CBCA, 1987-08, 79019-7 #### [facility] ([id number]) [address] [place] [address] 36130 #### 13310-6 #### [facility] ([id number]) [address], [address] [place] [address] Erythrocyte distribution width (RBC) [Ratio] 14.4 % Normal 11.5-15.0 [facility] Comment on above: Performed By: #### Laura RONDON CBCA, 1987-08, 36539-4 #### [facility] ([id number]) [address] [place] [address] 23646 #### 43101-7 #### [facility] ([id number]) [address], [address] [place] [address] Hematocrit (Bld) [Volume fraction] 39.7 % Normal 39-49 [facility] Comment on above: Performed By: #### Laura RONDON CBCA, 1987-08, #### [facility] ([id number]) [address] [place] [address] 43175 #### 51197-2 #### [facility] ([id number]) [address], [address] [place] [address] Hemoglobin (Bld) [Mass/Vol] 13.1 g/dL Normal 13.0-17.0 [facility] Comment on above: Performed By: #### Laura RONDON CBCA, 1987-08, #### [facility] ([id number]) [address] [place] [address] 65512 #### 14624-0 #### [facility] ([id number]) [address], [address] [place] [address] Lymphocytes (Bld) [#/Vol] 2.1 10*3/uL Normal 1.0-3.5 [facility] Comment on above: Performed By: #### Laura RONDON CBCA, 1987-08, #### [facility] ([id number]) [address] [place] [address] 56225 #### 52237-5 #### [facility] ([id number]) [address] [facility], [address] [place] [address] Lymphocytes/100 WBC (Bld) 24.5 % Normal [facility] Comment on above: Performed By: #### Laura RONDON CBCA, 1987-08, #### [facility] ([id number]) [address] [place] [address] 38160 #### 23200-2 #### [facility] ([id number]) [address] [facility], [address] [place] [address] MCH (RBC) [Entitic mass] 29.0 pg Normal 27-34 [facility] Comment on above: Performed By: #### B SEVEN RONDONA, 1987-08, #### [facility] ([id number]) [address] [place] [address] 95688 #### 20680-8 #### [facility] ([id number]) [address] [facility], [address] [place] [address] MCHC (RBC) [Mass/Vol] 32.9 g/dL Normal 32-36 [facility] Comment on above: Performed By: #### Laura RONDON CBCA, 1987-08, #### [facility] ([id number]) [address] [place] [address] 27064 #### 72106-9 #### [facility] ([id number]) [address] [facility], [address] [place] [address] MCV (RBC) [Entitic vol] 88 fL Normal 80-100 [facility] Comment on above: Performed By: #### Laura RONDON CBCA, 1987-08, #### [facility] ([id number]) [address] [place] [address] 40754 #### 18427-7 #### [facility] ([id number]) [address] [facility], [address] [place] [address] Monocytes (Bld) [#/Vol] 0.8 10*3/uL Normal 0-0.9 [facility] Comment on above: Performed By: #### Laura RONDON CBCA, 1987-08, #### [facility] ([id number]) [address] [place] [address] 76937 #### 07401-2 #### [facility] ([id number]) [address] [facility], [address] [place] [address] Monocytes/100 WBC (Bld) 9.2 % Normal [facility] Comment on above: Performed By: #### SEVEN Sanchez MPA, 1987-08, 71941-2 #### [facility] ([id number]) [address] [place] [address] 98487 #### 41233-8 #### [facility] ([id number]) [address] [facility], [address] [place] [address] Neutrophils/100 WBC (Bld) 62.6 % Normal [facility] Comment on above: Performed By: #### B SEVEN RONDONA, 1987-08, #### [facility] ([id number]) [address] [place] [address] 57026 #### 98585-2 #### [facility] ([id number]) [address] [facility], [address] [place] [address] Platelet mean volume (Bld) [Entitic vol] 8.6 fL Normal 7-12 [facility] Comment on above: Performed By: #### Laura RONDON CBCA, 1987-08, #### [facility] ([id number]) [address] [place] [address] 14050 #### 69123-6 #### [facility] ([id number]) [address] [facility], [address] [place] [address] Platelets (Bld) [#/Vol] 247 10*3/uL Normal 150-450 [facility] Comment on above: Performed By: #### SEVEN Sanchez MPA, 1987-08, #### [facility] ([id number]) [address] [place] [address] 48086 #### 20423-7 #### [facility] ([id number]) [address] [facility] [address] [place] [address] RBC COUNT 4.51 X10E12/L Normal 4.10-5.70 [facility] Comment on above: Performed By: #### B JAMES RONDON, 1987-08, 04594-9 #### [facility] ([id number]) [address] [place] [address] 30185 #### 43248-3 #### [facility] ([id number]) [address] [facility] [address] [place] [address] WBC (Bld) [#/Vol] 8.5 10*3/uL Normal 4.0-11.0 [facility] Comment on above: Performed By: #### B JAMES RONDON, 1987-08, 07689-1 #### [facility] ([id number]) [address] [place] [address] 30085 #### 06969-2 #### [facility] ([id number]) [address] [address] CREATININEon 10-23-2023 Creatinine [Mass/Vol] 2.69 mg/dL High 0.70-1.20 [facility] Comment on above: Result Comment: METH OD TRACEABLE TO IDMS STANDARD Performed By: #### B JAMES RONDON, 1987-08, 19966-3 #### [facility] ([id number]) [address] [place] [address] 45444 #### 55790-4 #### [facility] ([id number]) [address] [address] GFR/1.73 sq M.predicted among non-blacks MDRD (S/P/Bld) [Vol rate/Area] 26 mL/min/{1.73_m2} Low >59 [facility] Comment on above: Result Comment: Reported eGFR is based on the CKD-EPI 2020 equation that does not use a race coefficient. Performed By: #### B JAMES RONDON, 1987-08, 58808-9 #### [facility] ([id number]) [address] [place] [address] 33232 #### 52335-6 #### [facility] ([id number]) [address], [address] [place] [address] Calcium.ionized (Bld) [Moles /Vol]on 10-23-2023 PORTABLE ICA 4.8 mg/dL Normal 4.5-5.3 [facility] Comment on above: Performed By: #### B JAMES RONDON, 1987-08, 42074-0 #### [facility] ([id number]) [address] [place] [address] 91223 #### 05986-3 #### [facility] ([id number]) [address], [address] [place] [address] ELECTROLYTESon 10-23-2023 Anion gap [Moles/Vol] 5 mmol/L Normal 5-15 [facility] Comment on above: Performed By: #### JAMES Sanchez MP, 1987-08, 83785-5 #### [facility] ([id number]) [address] [place] [address] 04385 #### 85837-0 #### [facility] ([id number]) [address], [address] [place] [address] Chloride [Moles/Vol] 108 mmol/L Normal 98-109 [facility] Comment on above: Performed By: #### JAMES Sanchez MP, 1987-08, 59379-5 #### [facility] ([id number]) [address] [place] [address] 13739 #### 98720-0 #### [facility] ([id number]) [address], [address] [place] [address] CO2 [Moles/Vol] 18 mmol/L Low 22-32 [facility] Comment on above: Performed By: #### JAMES Sanchez MP, 1987-08, #### [facility] ([id number]) [address] [place] [address] 01832 #### 77702-9 #### [facility] ([id number]) [address] [facility], [address] [place] [address] Potassium [Moles/Vol] 4.1 mmol/L Normal 3.5-5.0 [facility] Comment on above: Performed By: #### JAMES Sanchez MP, 1987-08, #### [facility] ([id number]) [address] [place] [address] 43090 #### 47077-6 #### [facility] ([id number]) [address] [facility], [address] [place] [address] Sodium [Moles/Vol] 131 mmol/L Low 134-146 [facility] Comment on above: Performed By: #### JAMES Sanchez MP, 1987-08, #### [facility] ([id number]) [address] [place] [address] 08075 #### 66414-1 #### [facility] ([id number]) [address] [facility], [address] [place] [address] ESR Photometric method (Bld) [Velocity]on 10-23-2023 ESR, ERYTHROCYTE SEDIMENTATION RATE 89 mm/h High 0-20 [facility] Comment on above: Performed By: #### JAMES Sanchez MP, 1987-08, #### [facility] ([id number]) [address] [place] [address] 93428 #### 54586-3 #### [facility] ([id number]) [address] [facility], [address] [place] [address] HGB A1C (GLYCO-HGB)on 2023 Glucose [Mass/Vol] 235 mg/dL Normal [facility] Comment on above: Performed By: #### B ALCON, CBCA, 88462-8 #### [facility] ([id number]) [address] [place] [address] 36841 #### 70859-9 #### [facility] ([id number]) [address] [place] [address], [facility] [address] [place] [address] HbA1c (Bld) [Mass fraction] 9.8 % High 4.4-5.6 [facility] Comment on above: Result Comment: NOTE ADA Guidelines Result HgbA1c Normal : less than 5.7 % Prediabetes : 5.7 % to 6.4 % Diabetes : > 6.4 % Use with caution in patients with abnormal hemoglobin variants as the half-life of red blood cells and in vivo glycation rates are affected. Performed By: #### B ALCON CBCA, 80771-2 #### [facility] ([id number]) [address] [place] [address] 29382 #### 80726-8 #### [facility] ([id number]) [address] [place] [address], [address] [place] [address] LIVER PANELon 10-23-2023 Albumin [Mass/Vol] 2.8 g/dL Low 3.2-5.3 [facility] Comment on above: Performed By: #### B ALCON, CBCA, 44695-5 #### [facility] ([id number]) [address] [place] [address] 57449 #### 86184-8 #### [facility] ([id number]) [address] [place] [address], [address] [place] [address] ALP [Catalytic activity/Vol] 86 U/L Normal 39-130 [facility] Comment on above: Performed By: #### SEVEN Sanchez MPA, 1987-08, #### [facility] ([id number]) [address] [place] [address] 51687 #### 05844-9 #### [facility] ([id number]) [address] [facility], [address] [place] [address] ALT [Catalytic activity/Vol] 19 U/L Normal 0-40 [facility] Comment on above: Performed By: #### JAMES Sanchez MP, 1987-08, #### [facility] ([id number]) [address] [place] [address] 97136 #### 31125-8 #### [facility] ([id number]) [address] [facility], [address] [place] [address] AST [Catalytic activity/Vol] 15 U/L Normal 0-41 [facility] Comment on above: Performed By: #### JAMES Sanchez MP, 1987-08, #### [facility] ([id number]) [address] [place] [address] 89146 #### 77369-7 #### [facility] ([id number]) [address] [facility], [address] [place] [address] Bilirubin [Mass/Vol] 0.5 mg/dL Normal 0.3-1.2 [facility] Comment on above: Performed By: #### JAMES Sanchez MP, 1987-08, #### [facility] ([id number]) [address] [place] [address] 69216 #### 39636-4 #### [facility] ([id number]) [address] [facility], [address] [place] [address] Bilirubin.indirect [Mass/Vol] mg/dL Normal 0.0-0.4 [facility] Comment on above: Performed By: #### JAMES Sanchez MP, 1987-08, 43469-8 #### [facility] ([id number]) [address] [place] [address] 17499 #### 11162-2 #### [facility] ([id number]) [address] [place] [address], [address] [place] [address] Protein [Mass/Vol] 6.4 g/dL Normal 6.0-8.0 [facility] Comment on above: Performed By: #### JAMES Sanchez MP, 1987-08, 72948-0 #### [facility] ([id number]) [address] [place] [address] 94300 #### 37853-5 #### [facility] ([id number]) [address] [place] [address], [address] [place] [address] Lipid 1996 panelon 4 Cholesterol [Mass/Vol] 135 mg/dL Low 150-200 [facility] Comment on above: Performed By: #### JAMES Sanchez MP, 1987-08, 46942-4 #### [facility] ([id number]) [address] [place] [address] 36552 #### 31977-5 #### [facility] ([id number]) [address] [place] [address], [address] [place] [address] Cholesterol in HDL [Mass/Vol] 40 mg/dL Normal >39 [facility] Comment on above: Result Comment: HDL <40 mg/dL - High Risk HDL > or = 40mg/dL- Desirable HDL >60 mg/dL - Negative Risk Performed By: #### B MP, CBCA, 1987-08, 04439-7 #### [facility] ([id number]) [address] [place] [address] 63714 #### 71431-0 #### [facility] ([id number]) [address], [address] [place] [address] Cholesterol in LDL [Mass/Vol] 57 mg/dL Normal <130 [facility] Comment on above: Result Comment: LDL <100 mg/dL - Desirable LDL >160 mg/dL - High Risk Performed By: #### JAMES Sanchez MP, 1987-08, #### [facility] ([id number]) [address] [place] [address] 41640 #### 36388-3 #### [facility] ([id number]) [address] [facility], [address] [place] [address] Cholesterol in VLDL [Mass/Vol] 38 mg/dL High 0-30 [facility] Comment on above: Performed By: #### JAMES Sanchez MP, 1987-08, #### [facility] ([id number]) [address] [place] [address] 23733 #### 37644-5 #### [facility] ([id number]) [address] [facility], [address] [place] [address] CHOLESTEROL:HDL 3.4 Normal 1.0-5.0 [facility] Comment on above: Performed By: #### JAMES Sanchez MP, 1987-08, #### [facility] ([id number]) [address] [place] [address] 12273 #### 88179-6 #### [facility] ([id number]) [address] [facility], [address] [place] [address] Triglyceride [Mass/Vol] 192 mg/dL High 27-150 [facility] Comment on above: Performed By: #### B JAMES RONDON, 1987-08, 19286-9 #### [facility] ([id number]) [address] [place] [address] 50361 #### 53141-5 #### [facility] ([id number]) [address] [facility], [address] [place] [address] MAGNESIUMon 10-23-2023 Magnesium [Mass/Vol] 2.1 mg/dL Normal 1.8-2.6 [facility] Comment on above: Performed By: #### B JAMES RONDON, 1987-08, 38940-8 #### [facility] ([id number]) [address] [place] [address] 08511 #### 53084-3 #### [facility] ([id number]) [address] [facility], [address] [place] [address] Natriuretic peptide.B prohor adrianne N-Terminal IA [Mass/Vol]on 10-23-2023 Natriuretic peptide B (Bld) [Mass/Vol] 1528 pg/mL High <=88 [facility] Comment on above: Result Comment: NOTE NT-proBNP values less than 300 pg/mL have a 99% negative predictive value for excluding acute congestive heart failure. A cutoff of 1200 pg/mL for patients with an eGFR<60 yields a diagnostic sensitivity and specificity of 89% and 72% for acute congestive heart failure. A diagnostic NT-proBNP cutoff of 900 pg/mL has been suggested in adults 50-75 years of age in the absence of renal failure. Test Performed by: [address] [address] Fishing Rod Marker: Brittani Nieves Ph.D.; CLIA# [id number] Performed By: #### JAMES Sanchez MP, 1987-08, 18551-7 #### [facility] ([id number]) [address] [place] [address] 52519 #### 92101-4 #### [facility] ([id number]) [address] [place] [address], [address] [address] Prostate specific Ag [Mass/V ol]on 10-23-2023 PSA SCREEN 1.65 ng/mL Normal 0.00-4.00 [facility] Comment on above: Result Comment: The method used for this test is [employer] Slantrange DXI chemiluminescent immunoassay. Values obtained by different assay methods cannot be used interchangeably. Performed By: #### B JAMES RONDON, 1987-08, 87071-0 #### [facility] ([id number]) [address] [place] [address] #### [id number] #### [facility] ([id number]) [address] [place] [address], [address] [address] Vitamin D+Metabolites [Mass/ Vol]on 10-23-2023 VITAMIN D 25 HYD TOT 8.3 ng/mL Low 30-100 [facility] Comment on above: Result Comment: Vitamin D status 25 OH Vitamin D Deficiency <20 ng/mL Insufficiency 20-29 ng/mL Sufficiency 30-100 ng/mL Toxicity >100 ng/mL NOTE: A pediatric reference range has not been established by the chief engineer production of this kit. The [employer] recommends a Vitamin D level of = or >20ng/mL in infants and children. Performed By: #### JAMES Sanchez MP, 1987-08, 47306-5 #### [facility] ([id number]) [address] [place] [id number] #### [id number] #### [facility] ([id number]) [address] [place] [address], [facility] [address] [place] [address] BLOOD UREA NITROGENon 2023 Urea nitrogen [Mass/Vol] 33 mg/dL High 5-27 [facility] Comment on above: Performed By: #### B JAMES RONDON, 1987-08, 45510-2 #### [facility] ([id number]) [address] [place] [address] 74406 #### 86953-5 #### [facility] ([id number]) [address] [facility], [address] [place] [address] CREATININEon 09-03-2023 Creatinine [Mass/Vol] 2.42 mg/dL High 0.70-1.20 [facility] Comment on above: Result Comment: METH OD TRACEABLE TO IDMS STANDARD Performed By: #### B JAMES RONDON, 1987-08, #### [facility] ([id number]) [address] [place] [address] 81955 #### 05606-5 #### [facility] ([id number]) [address] [facility], [address] [place] [address] GFR/1.73 sq M.predicted among non-blacks MDRD (S/P/Bld) [Vol rate/Area] 29 mL/min/{1.73_m2} Low >59 [facility] Comment on above: Result Comment: Reported eGFR is based on the CKD-EPI 2020 equation that does not use a race coefficient. Performed By: #### B JAMES RONDON, 1987-08, 23841-7 #### [facility] ([id number]) [address] [place] [address] 45246 #### 31098-5 #### [facility] ([id number]) [address] [facility], [address] [place] [address] ELECTROLYTESon 09-03-2023 Anion gap [Moles/Vol] 7 mmol/L Normal 5-15 [facility] Comment on above: Performed By: #### B JAMES RONDON, 1987-08, 35502-0 #### [facility] ([id number]) [address] [place] [address] 14776 #### 18710-1 #### [facility] ([id number]) [address], [address] [place] [address] Chloride [Moles/Vol] 106 mmol/L Normal 98-109 [facility] Comment on above: Performed By: #### B ALCON, CBCA, 1987-08, 13018-3 #### [facility] ([id number]) [address] [place] [address] 29960 #### 12813-9 #### [facility] ([id number]) [address] [facility], [address] [place] [address] CO2 [Moles/Vol] 21 mmol/L Low 22-32 [facility] Comment on above: Performed By: #### Laura RONDON CBCA, 1987-08, 23921-0 #### [facility] ([id number]) [address] [place] [address] 30960 #### 40769-6 #### [facility] ([id number]) [address], [address] [place] [address] Potassium [Moles/Vol] 4.2 mmol/L Normal 3.5-5.0 [facility] Comment on above: Performed By: #### Laura RONDON, CBCA, 1987-08, 11251-5 #### [facility] ([id number]) [address] [place] [address] 39881 #### 10975-2 #### [facility] ([id number]) [address], [address] [place] [address] Sodium [Moles/Vol] 134 mmol/L Normal 134-146 [facility] Comment on above: Performed By: #### B ALCON CBCA, 1987-08, 90810-6 #### [facility] ([id number]) [address] [place] [address] 44532 #### 34795-2 #### [facility] ([id number]) [address], [address] [place] [address] Natriuretic peptide.B prohor adrianne N-Terminal [Mass/Vol]on 09-03-2023 NT Pro BNP See Below Normal [facility] Comment on above: Result Comment: NOTE TEST RESULT FLAG UNIT REF.RANGE ---- PRO B Natr Peptide 933 H pg/mL <125 Test Performed By: [facility] [address] [place] [address] Msws: Charlotte Hart IIIIA #[id number] Performed By: #### JAMES Sanchez MP, 1987-08, 03459-2 #### [facility] ([id number]) [address] [place] [address] 30031 #### 88588-6 #### [facility] ([id number]) [address] [facility], [address] [place] [address] BLOOD UREA NITROGENon 2023 Urea nitrogen [Mass/Vol] 38 mg/dL High 5-27 [facility] Comment on above: Performed By: #### Laura RONDON CBCA, 1987-08, 66101-5 #### [facility] ([id number]) [address] [place] [address] 71093 #### 37974-8 #### [facility] ([id number]) [address] [facility], [address] [place] [address] CREATININEon 07-31-2023 Creatinine [Mass/Vol] 2.76 mg/dL High 0.70-1.20 [facility] Comment on above: Result Comment: METH OD TRACEABLE TO IDMS STANDARD Performed By: #### B JAMES RONDON, 1987-08, 69329-8 #### [facility] ([id number]) [address] [place] [address] 41844 #### 39328-0 #### [facility] ([id number]) [address] [facility], [address] [place] [address] GFR/1.73 sq M.predicted among non-blacks MDRD (S/P/Bld) [Vol rate/Area] 25 mL/min/{1.73_m2} Low >59 [facility] Comment on above: Result Comment: Reported eGFR is based on the CKD-EPI 2020 equation that does not use a race coefficient. Performed By: #### B JAMES RONDON, 1987-08, #### [facility] ([id number]) [address] [place] [address] 79943 #### 38673-9 #### [facility] ([id number]) [address] [facility], [address] [place] [address] ELECTROLYTESon 07-31-2023 Anion gap [Moles/Vol] 7 mmol/L Normal 5-15 [facility] Comment on above: Performed By: #### JAMES Sanchez MP, 1987-08, #### [facility] ([id number]) [address] [place] [address] 77772 #### 04582-4 #### [facility] ([id number]) [address] [facility], [address] [place] [address] Chloride [Moles/Vol] 104 mmol/L Normal 98-109 [facility] Comment on above: Performed By: #### B JAMES RONDON, 1987-08, #### [facility] ([id number]) [address] [place] [address] 69105 #### 80171-7 #### [facility] ([id number]) [address] [facility], [address] [place] [address] CO2 [Moles/Vol] 21 mmol/L Low 22-32 [facility] Comment on above: Performed By: #### JAMES Sanchez MP, 1987-08, 63398-3 #### [facility] ([id number]) [address] [place] [address] 43299 #### 43820-9 #### [facility] ([id number]) [address] [place] [address], [address] [place] [address] Potassium [Moles/Vol] 4.3 mmol/L Normal 3.5-5.0 [facility] Comment on above: Performed By: #### JAMES Sanchez MP, 1987-08, 63442-2 #### [facility] ([id number]) [address] [place] [address] 42005 #### 41019-9 #### [facility] ([id number]) [address] [place] [address], [address] [place] [address] Sodium [Moles/Vol] 132 mmol/L Low 134-146 [facility] Comment on above: Performed By: #### JAMES Sanchez MP, 1987-08, 95124-8 #### [facility] ([id number]) [address] [place] [address] 44041 #### 64512-3 #### [facility] ([id number]) [address] [facility], [address] [place] [address] Natriuretic peptide.B prohor adrianne N-Terminal [Mass/Vol]on 07-31-2023 NT Pro BNP See Below Normal [facility] Comment on above: Result Comment: NOTE TEST RESULT FLAG UNIT REF.RANGE ---- PRO B Natr Peptide 1296 H pg/mL <125 Test Performed By: [place] [address] Msws: Tyler Valle III, M.D. CLIA #[id number] Performed By: #### B JAMES RONDON, 1987-08, 62461-2 #### [facility] ([id number]) [address] [place] [address] #### 96220-2 #### [facility] ([id number]) [address] [facility], [address] [place] [address] BLOOD UREA NITROGENon 2023 Urea nitrogen [Mass/Vol] 34 mg/dL High 5-27 [facility] Comment on above: Performed By: #### JAMES Sanchez MP, 1987-08, 42959-5 #### [facility] ([id number]) [address] [place] [address] 42638 #### 04716-2 #### [facility] ([id number]) [address] [facility], [address] [place] [address] CREATININEon 07-02-2023 Creatinine [Mass/Vol] 3.13 mg/dL High 0.70-1.20 [facility] Comment on above: Result Comment: METH OD TRACEABLE TO IDMS STANDARD Performed By: #### JAMES Sanchez MP, 1987-08, 05181-7 #### [facility] ([id number]) [address] [place] [address] 77462 #### 57191-4 #### [facility] ([id number]) [address] [facility], [address] [place] [address] GFR/1.73 sq M.predicted among non-blacks MDRD (S/P/Bld) [Vol rate/Area] 22 mL/min/{1.73_m2} Low >59 [facility] Comment on above: Result Comment: Reported eGFR is based on the CKD-EPI 2020 equation that does not use a race coefficient. Performed By: #### B JAMES RONDON, 1987-08, 47477-0 #### [facility] ([id number]) [address] [place] [address] 15239 #### 80621-7 #### [facility] ([id number]) [address] [facility], [address] [place] [address] ELECTROLYTESon 07-02-2023 Anion gap [Moles/Vol] 8 mmol/L Normal 5-15 [facility] Comment on above: Performed By: #### JAMES Sanchez MP, 1987-08, 85164-4 #### [facility] ([id number]) [address] [place] [address] 71138 #### 52593-4 #### [facility] ([id number]) [address], [address] [place] [address] Chloride [Moles/Vol] 106 mmol/L Normal 98-109 [facility] Comment on above: Performed By: #### JAMES Sanchez MP, 1987-08, 48748-1 #### [facility] ([id number]) [address] [place] [address] 48208 #### 44292-4 #### [facility] ([id number]) [address], [address] [place] [address] CO2 [Moles/Vol] 20 mmol/L Low 22-32 [facility] Comment on above: Performed By: #### JAMES Sanchez MP, 98059-8 #### [facility] ([id number]) [address] [place] [address] 06956 #### 70366-4 #### [facility] ([id number]) [address] [place] [address], [address] [place] [address] Potassium [Moles/Vol] 4.7 mmol/L Normal 3.5-5.0 [facility] Comment on above: Performed By: #### JAMES Sanchez MP, 1987-08, 32506-9 #### [facility] ([id number]) [address] [place] [address] 61025 #### 33092-9 #### [facility] ([id number]) [address] [place] [address], [address] [place] [address] Sodium [Moles/Vol] 134 mmol/L Normal 134-146 [facility] Comment on above: Performed By: #### JAMES Sanchez MP, 1987-08, 82523-4 #### [facility] ([id number]) [address] [place] [address] 09912 #### 68904-9 #### [facility] ([id number]) [address] [place] [address], [address] [place] [address] Natriuretic peptide.B prohor adrianne N-Terminal [Mass/Vol]on 07-02-2023 NT Pro BNP See Below Normal [facility] Comment on above: Result Comment: NOTE TEST RESULT FLAG UNIT REF.RANGE ---- PRO B Natr Peptide 413 H pg/mL <125 Test Performed By: [employer] [address] [place] [address] Msws: Charlotte Hart III #[id number] Performed By: #### JAMES Sanchez MP, 1987-08, #### [facility] ([id number]) [address] [place] [address] #### 45644-0 #### [facility] ([id number]) [address], [address] [place] [address] BLOOD UREA NITROGENon 2023 Urea nitrogen [Mass/Vol] 33 mg/dL High 5-27 [facility] Comment on above: Performed By: #### B JAMES RONDON, 1987-08, #### [facility] ([id number]) [address] [place] [address] 69283 #### 39096-1 #### [facility] ([id number]) [address], [address] [place] [address] CREATININEon 06-04-2023 Creatinine [Mass/Vol] 2.37 mg/dL High 0.70-1.20 [facility] Comment on above: Result Comment: METH OD TRACEABLE TO IDMS STANDARD Performed By: #### B JAMES RONDON, 1987-08, #### [facility] ([id number]) [address] [place] [address] 79530 #### 14622-4 #### [facility] ([id number]) [address], [address] [place] [address] GFR/1.73 sq M.predicted among non-blacks MDRD (S/P/Bld) [Vol rate/Area] 30 mL/min/{1.73_m2} Low >59 [facility] Comment on above: Result Comment: Reported eGFR is based on the CKD-EPI 2020 equation that does not use a race coefficient. Performed By: #### B JAMES RONDON, 1987-08, #### [facility] ([id number]) [address] [place] [address] 99002 #### 65805-2 #### [facility] ([id number]) [address], [address] [place] [address] ELECTROLYTESon 06-04-2023 Anion gap [Moles/Vol] 7 mmol/L Normal 5-15 [facility] Comment on above: Performed By: #### Laura RONDON CBCA, 1987-08, 95442-8 #### [facility] ([id number]) [address] [place] [address] 37772 #### 59191-3 #### [facility] ([id number]) [address] [facility], [address] [place] [address] Chloride [Moles/Vol] 106 mmol/L Normal 98-109 [facility] Comment on above: Performed By: #### Laura RONDON CBCA, 1987-08, 87822-1 #### [facility] ([id number]) [address] [place] [address] 45051 #### 14160-2 #### [facility] ([id number]) [address] [facility], [address] [place] [address] CO2 [Moles/Vol] 20 mmol/L Low 22-32 [facility] Comment on above: Performed By: #### Laura RONDON CBCA, 1987-08, 60343-6 #### [facility] ([id number]) [address] [place] [address] 52336 #### 81352-9 #### [facility] ([id number]) [address], [address] [place] [address] Potassium [Moles/Vol] 4.6 mmol/L Normal 3.5-5.0 [facility] Comment on above: Performed By: #### Laura RONDON CBCA, 1987-08, 20327-7 #### [facility] ([id number]) [address] [place] [address] 34069 #### 44092-3 #### [facility] ([id number]) [address] [place] [address], [facility] [address] [place] [address] Sodium [Moles/Vol] 133 mmol/L Low 134-146 [facility] Comment on above: Performed By: #### JAMES Sanchez MP, 1987-08, 37684-6 #### [facility] ([id number]) [address] [place] [address] #### 22024-3 #### [facility] ([id number]) [address] [place] [address], [address] [address] Natriuretic peptide.B prohor adrianne N-Terminal [Mass/Vol]on 06-04-2023 NT Pro BNP See Below Normal [facility] Comment on above: Result Comment: NOTE TEST RESULT FLAG UNIT REF.RANGE ---- PRO B Natr Peptide 526 H pg/mL <125 Test Performed By: [facility] [address] [place] [address] Msws: Charlotte Hart III #[id number] Performed By: #### JAMES Sanchez MP, 1987-08, 41761-7 #### [facility] ([id number]) [address] [place] [address] 28722 #### 95561-9 #### [facility] ([id number]) [address] [place] [address] Cult,Urineon 06-03-2023 Cult,Urine Specimen Description .VOIDED URINE [...] Tobramycin 4 SUSCEPTIBLE Trimethoprim/Sulfa >=320 RESISTANT Resistant [facility] Comment on above: Performed By: #### U RC #### [facility] [address] [place], [place] 6[address] Fishing Rod Marker: Griffin Carrion MD [facility] [address] [place] [address] [place], [place] 6788083 Fishing Rod Marker: Jameson Aaron MD UA w/Reflex Cultureon 2023 Bilirubin, SemiQt,Ur Negative Normal NEG [facility] Comment on above: Performed By: #### U AX, UMICAO #### [facility] [address] [place] [address] [place], [place] 9978683 Fishing Rod Marker: Jameson Aaron MD Blood, Urine TRACE Abnormal NEG [facility] Comment on above: Performed By: #### U AX, UMICAO #### [facility] [address] [place], [place] 9529383 Fishing Rod Marker: Jameson Aaron MD Clarity (U) SLIGHTLY CLOUDY Abnormal CLEAR [facility] Comment on above: Performed By: #### U AX, UMICAO #### [facility] [address] [place], [place] 224[address]83 Fishing Rod Marker: Jameson Aaron MD Color (U) Yellow Normal YEL [facility] Comment on above: Performed By: #### U AX, UMICAO #### [facility] [address] [place] [address] Fishing Rod Marker: Jameson Aaron MD Glucose Ql (U) 3+ mg/dL Abnormal NEG [facility] Comment on above: Performed By: #### U AX, UMICAO #### [facility] [address] [place], [place] 8908483 Fishing Rod Marker: Jameson Aaron MD Ketones Ql (U) Negative Normal NEG [facility] Comment on above: Performed By: #### U AX, UMICAO #### [facility] [address] [place], [place] 1923183 Fishing Rod Marker: Jameson Aaron MD Leukocyte esterase Test strip Ql (U) TRACE Abnormal NEG [facility] Comment on above: Performed By: #### U AX, UMICAO #### [facility] [address] [place], [place] 1707683 Fishing Rod Marker: Jameson Aaron MD Nitrite,Ur Negative Normal NEG [facility] Comment on above: Performed By: #### U AX, UMICAO #### [facility] [address] [place], [place] 6803383 Fishing Rod Marker: Jameson Aaron MD PH,Ur 5.5 Normal 5.0-9.0 [facility] Comment on above: Performed By: #### U AX, UMICAO #### [facility] [address] [place] [address] [place], [place] 0574583 Fishing Rod Marker: Jameson Aaron MD Protein Ql (U) 2+ mg/dL Abnormal NEG [facility] Comment on above: Performed By: #### U AX, UMICAO #### [facility] [address] [place], [place] 6047183 Fishing Rod Marker: Jameson Aaron MD Spec. [place],Ur 1.025 High 1.010-1.020 [facility] Comment on above: Performed By: #### U AX, UMICAO #### [facility] [address] [place], [place] 2532383 Fishing Rod Marker: Jameson Aaron MD Urobilinogen,Ur Normal Normal 0.0-1.0 [facility] Comment on above: Performed By: #### U AX, UMICAO #### [facility] [address] [place], [place] 1582583 Fishing Rod Marker: Jameson Aaron MD Urinalysis,Microon 4 Bacteria 2+ Abnormal NONE [facility] Comment on above: Performed By: #### U AX, UMICAO #### [facility] [address] [place], [place] 0109283 Fishing Rod Marker: Jameson Aaron MD Epithelial cells LM Ql (Urine sed) 0 TO 2 Normal 0-5 [facility] Comment on above: Performed By: #### U AX, UMICAO #### [address] [place], [place] 2802783 Fishing Rod Marker: Jameson Aaron MD Epithelial, Renal 0 TO 2 Normal 0 [facility] Comment on above: Performed By: #### U AX, UMICAO #### [address] [place], [place] 9897183 Fishing Rod Marker: Jameson Aaron MD Urine RBC's 0 TO 2 Normal 0-2 [facility] Comment on above: Performed By: #### U AX, UMICAO #### [facility] [address] [place], [place] 1960683 Fishing Rod Marker: Jameson Aaron MD Urine WBC's 10 TO 20 Normal 0-5 [facility] Comment on above: Performed By: #### U AX, UMICAO #### [facility] [address] [place], [place] 2076283 Fishing Rod Marker: Jameson Aaron MD Yeast PRESENCE NOTED Abnormal [facility] Comment on above: Performed By: #### U AX, UMICAO #### [facility] [address] [place], [place] 4392283 Fishing Rod Marker: Jameson Aaron MD BLOOD UREA NITROGENon 2023 Urea nitrogen [Mass/Vol] 44 mg/dL High 5-27 [facility] Comment on above: Performed By: #### E LEC, 3094-0, REGIONAL MANAGER, 59143-4 #### [facility] ([id number]) [address] [place] [address] 91210 #### 90617-4, HA1C #### [facility] ([id number]) [address] [facility], [address] [place] [address] CREATININEon 05-06-2023 Creatinine [Mass/Vol] 2.71 mg/dL High 0.70-1.20 [facility] Comment on above: Result Comment: METH OD TRACEABLE TO IDMS STANDARD Performed By: #### E LEC, 3094-0, REGIONAL MANAGER, 91315-6 #### [facility] ([id number]) [address] [place] [address] 83778 #### 40204-9, HA1C #### [facility] ([id number]) [address] [facility], [address] [place] [address] GFR/1.73 sq M.predicted among non-blacks MDRD (S/P/Bld) [Vol rate/Area] 26 mL/min/{1.73_m2} Low >59 [facility] Comment on above: Result Comment: Reported eGFR is based on the CKD-EPI 2020 equation that does not use a race coefficient. Performed By: #### E LEC, 3094-0, REGIONAL MANAGER, 22374-7 #### [facility] ([id number]) [address] [place] [address] 89404 #### 04325-3, HA1C #### [facility] ([id number]) [address] [facility], [address] [place] [address] ELECTROLYTESon 05-06-2023 Anion gap [Moles/Vol] 11 mmol/L Normal 5-15 [facility] Comment on above: Performed By: #### E LEC, 3094-0, REGIONAL MANAGER, 10048-0 #### [facility] ([id number]) [address] [place] [address] 96691 #### 35578-5, HA1C #### [facility] ([id number]) [address], [address] [place] [address] Chloride [Moles/Vol] 101 mmol/L Normal 98-109 [facility] Comment on above: Performed By: #### E LEC, 3094-0, REGIONAL MANAGER, 02673-3 #### [facility] ([id number]) [address] [place] [address] 32430 #### 71017-4, HA1C #### [facility] ([id number]) [address], [address] [place] [address] CO2 [Moles/Vol] 18 mmol/L Low 22-32 [facility] Comment on above: Performed By: #### E LEC, 3094-0, REGIONAL MANAGER, 53541-5 #### [facility] ([id number]) [address] [place] [address] 92034 #### 29026-7, HA1C #### [facility] ([id number]) [address], [address] [place] [address] Potassium [Moles/Vol] 4.4 mmol/L Normal 3.5-5.0 [facility] Comment on above: Performed By: #### E LEC, 3094-0, REGIONAL MANAGER, 69841-6 #### [facility] ([id number]) [address] [place] [address] 19685 #### 40038-5, HA1C #### [facility] ([id number]) [address] [place] [address] Sodium [Moles/Vol] 130 mmol/L Low 134-146 [facility] Comment on above: Performed By: #### E LEC, 3094-0, REGIONAL MANAGER, 48579-4 #### [facility] ([id number]) [address] [place] [address] 87747 #### 52589-0, HA1C #### [facility] ([id number]) [address], [address] [place] [address] HGB A1C (GLYCO-HGB)on 2023 Glucose [Mass/Vol] 260 mg/dL Normal [facility] Comment on above: Performed By: #### Laura RONDON, CBCA, 1987-08, 87631-8 #### [facility] ([id number]) [address] [place] [address] 48708 #### 56046-4 #### [facility] ([id number]) [address], [address] [place] [address] HbA1c (Bld) [Mass fraction] 10.7 % High 4.4-5.6 [facility] Comment on above: Result Comment: NOTE ADA Guidelines Result HgbA1c Normal : less than 5.7 % Prediabetes : 5.7 % to 6.4 % Diabetes : > 6.4 % Use with caution in patients with abnormal hemoglobin variants as the half-life of red blood cells and in vivo glycation rates are affected. Performed By: #### Laura MP, CBCA, 1987-08, 31377-0 #### [facility] ([id number]) [address] [place] [address] #### 35685-0 #### [facility] ([id number]) [address], [address] [place] [address] Lipid 1996 panelon Cholesterol [Mass/Vol] 205 mg/dL High 150-200 [facility] Comment on above: Performed By: #### E LEC, 3094-0, REGIONAL MANAGER, 98306-5 #### [facility] ([id number]) [address] [place] [address] #### 67468-2, HA1C #### [facility] ([id number]) [address], [address] [place] [address] Cholesterol in HDL [Mass/Vol] 35 mg/dL Low >39 [facility] Comment on above: Result Comment: HDL <40 mg/dL - High Risk HDL > or = 40mg/dL- Desirable HDL >60 mg/dL - Negative Risk Performed By: #### E LEC, 3094-0, REGIONAL MANAGER, 87660-2 #### [facility] ([id number]) [address] [place] [address] #### 81116-8, HA1C #### [facility] ([id number]) [address], [address] [place] [address] Cholesterol in LDL [Mass/Vol] 120 mg/dL Normal <130 [facility] Comment on above: Result Comment: LDL <100 mg/dL - Desirable LDL >160 mg/dL - High Risk Performed By: #### E LEC, 3094-0, REGIONAL MANAGER, 14371-9 #### [facility] ([id number]) [address] [place] [address]93[address] #### 03935-4, HA1C #### [facility] ([id number]) [address], [address] [place] [address] Cholesterol in VLDL [Mass/Vol] 50 mg/dL High 0-30 [facility] Comment on above: Performed By: #### E LEC, 3094-0, REGIONAL MANAGER, 96725-7 #### [facility] ([id number]) [address] [place] [address] 50013 #### 00187-1, HA1C #### [facility] ([id number]) [address] [facility], [address] [place] [address] CHOLESTEROL:HDL 5.9 High 1.0-5.0 [facility] Comment on above: Performed By: #### E LEC, 3094-0, REGIONAL MANAGER, 01541-7 #### [facility] ([id number]) [address] [place] [address] 33671 #### 64931-1, HA1C #### [facility] ([id number]) [address] [place] [address], [address] [place] [address] Triglyceride [Mass/Vol] 248 mg/dL High 27-150 [facility] Comment on above: Performed By: #### E LEC, 3094-0, REGIONAL MANAGER, 80344-5 #### [facility] ([id number]) [address] [place] [address] 78435 #### 89486-0, HA1C #### [facility] ([id number]) [address] [place] [address], [address] [place] [address] MICROALBUMIN - ALBUMIN:CREAT ININE URINE RATIOon 05-06-2023 ALB/CREAT RATIO 2747.0 mg/g creat High 0.0-30.0 [facility] Comment on above: Performed By: #### B MP, CBCA, 1987-08, 50277-7 #### [facility] ([id number]) [address] [place] [address] 86828 #### 10987-3 #### [facility] ([id number]) [address] [facility], [address] [place] [address] Albumin DL <= 20 mg/L (U) [Mass/Vol] 195.2 mg/dL High 0.0-1.9 [facility] Comment on above: Performed By: #### JAMES Sanchez MP, 1987-08, 29307-1 #### [facility] ([id number]) [address] [place] [address] 37662 #### 89465-7 #### [facility] ([id number]) [address] [facility] [facility], [address] [place] [address] URINE CREAT 71.06 mg/dL Normal [facility] Comment on above: Performed By: #### JAMES Sanchez MP, 1987-08, 68184-3 #### [facility] ([id number]) [address] [place] [address] 69402 #### 69852-6 #### [facility] ([id number]) [address] [facility], [address] [place] [address] Natriuretic peptide.B prohor adrianne N-Terminal [Mass/Vol]on 05-06-2023 NT Pro BNP See Below Normal [facility] Comment on above: Result Comment: NOTE TEST RESULT FLAG UNIT REF.RANGE ---- PRO B Natr Peptide 314 H pg/mL <125 Test Performed By: [facility] [address] [place] [address] Msws: Charlotte Hart III #[id number] Performed By: #### JAMES Sanchez MP, 1987-08, 87340-4 #### [facility] ([id number]) [address] [place] [address] 86071 #### 78873-3 #### [facility] ([id number]) [address] [facility] [address], [address] [place] [address] URINALYSISon 05-06-2023 Bilirubin Ql (U) Negative Normal NEG [facility] Comment on above: Performed By: #### U A #### [facility] ([id number]) [address] [place] [address] BLOOD/HGB Trace Abnormal NEG [facility] Comment on above: Performed By: #### U A #### [facility] ([id number]) [address] [place] [address] Color (U) YELLOW Normal YELLOW [facility] Comment on above: Performed By: #### U A #### [facility] ([id number]) [address] [place] [address] Glucose Ql (U) >1000 Abnormal NEG [facility] Comment on above: Performed By: #### U A #### [facility] ([id number]) [address] [place] [address] 088[address] Ketones Ql (U) Negative Normal NEG [facility] Comment on above: Performed By: #### U A #### [facility] ([id number]) [address] [place] [address] 626[address] Leukocyte esterase Test strip Ql (U) Negative Normal NEG [facility] Comment on above: Result Comment: HIGH CONCENTRATIONS OF GLUCOSE MAY DECREASE THE REACTIVITY OF THE DIPSTICK LEUKOCYTE TEST PAD. Performed By: #### U A #### [facility] ([id number]) [address] [place] [address] MUCOUS PRESENT Abnormal NONE [facility] Comment on above: Performed By: #### U A #### [facility] ([id number]) [address] [place] [address] Nitrite Ql (U) Positive Abnormal NEG [facility] Comment on above: Performed By: #### U A #### [facility] ([id number]) [address] [place] [address] 76799 pH (U) 6.0 [pH] Normal 5.0-8.5 [facility] Comment on above: Performed By: #### U A #### [facility] ([id number]) [address] [place] [address]40 Protein Ql (U) >300 Abnormal NEG [facility] Comment on above: Performed By: #### U A #### [facility] ([id number]) [address] [place] [address] R.B.CELLS 5 /hpf Normal 0-5 [facility] Comment on above: Performed By: #### U A #### [facility] ([id number]) [address] [place] [address] 85399 Specific gravity (U) [Rel density] 1.015 Normal 1.003-1.035 [facility] Comment on above: Performed By: #### U A #### [facility] ([id number]) [address] [place] [address] SQUAMOUS EPITHELIUM 4 /hpf Normal 0-5 [facility] Comment on above: Performed By: #### U A #### [facility] ([id number]) [address] [place] [address] [place] [address] TURBIDITY HAZY Abnormal CLEAR [facility] Comment on above: Performed By: #### U A #### [facility] ([id number]) [address] [place] [address] Urobilinogen Qn (U) 0.2 {Chaya'U}/dL Normal <1.1 [facility] Comment on above: Performed By: #### U A #### [facility] ([id number]) [address] [place] [address] W.B.CELLS >100 High 0-5 [facility] Comment on above: Performed By: #### U A #### [facility] ([id number]) [address] [place] [address] URINE CULTUREon 05-06-2023 Bacteria identified Cx Nom (U) SPECIMEN NOTES URINE RECEIVED WITHOUT PRESERVATIVE CULTURE RESULTS MULTIPLE SPECIES PRESENT. PROBABLE COLLECTION CONTAMINATION. SUGGEST REPEAT SPECIMEN. URINE RECEIVED WITHOUT PRESERVATIVE-DELAYS IN TRANSPORT MAY AFFECT RESULTS.INTERPRET WITH CAUTION AND CLINICAL CORRELATION IS RECOMMENDED. Normal [facility] Comment on above: Performed By: #### B JAMES RONDON, 1987-08, 04094-9 #### [facility] ([id number]) [address] [place] [address] 38668 #### 84263-9 #### [facility] ([id number]) [address] [facility], [address] [place] [address] BASIC METABOLIC PANLon 04-19 Anion gap [Moles/Vol] 6 mmol/L Normal 5-15 [facility] Comment on above: Performed By: #### B JAMES RONDON, 1987-08, 44282-1 #### [facility] ([id number]) [address] [place] [address] 74933 #### 96778-9 #### [facility] ([id number]) [address] [facility] [facility], [address] [place] [address] Calcium [Mass/Vol] 8.6 mg/dL Normal 8.5-10.5 [facility] Comment on above: Performed By: #### B JAMES RONDON, 1987-08, 47161-2 #### [facility] ([id number]) [address] [place] [address] 44198 #### 34645-9 #### [facility] ([id number]) [address] [facility] [facility], [address] [place] [address] Chloride [Moles/Vol] 101 mmol/L Normal 98-109 [facility] Comment on above: Performed By: #### B JAMES RONDON, 1987-08, 89952-4 #### [facility] ([id number]) [address] [place] [address] 39737 #### 59262-1 #### [facility] ([id number]) [address] [facility] [facility], [address] [place] [address] CO2 [Moles/Vol] 19 mmol/L Low 22-32 [facility] Comment on above: Performed By: #### B JAMES RONDON, 1987-08, 78998-8 #### [facility] ([id number]) [address] [place] [address] 68447 #### 94023-1 #### [facility] ([id number]) [address] [facility] [facility], [address] [place] [address] Creatinine [Mass/Vol] 2.57 mg/dL High 0.70-1.20 [facility] Comment on above: Result Comment: METH OD TRACEABLE TO IDMS STANDARD Performed By: #### B JAMES RONDON, 1987-08, 12398-2 #### [facility] ([id number]) [address] [place] [address] 72227 #### 80013-3 #### [facility] ([id number]) [address] [facility] [facility], [address] [place] [address] GFR/1.73 sq M.predicted among non-blacks MDRD (S/P/Bld) [Vol rate/Area] 27 mL/min/{1.73_m2} Low >59 [facility] Comment on above: Result Comment: Reported eGFR is based on the CKD-EPI 2020 equation that does not use a race coefficient. Performed By: #### B JAMES RONDON, 1987-08, 82094-7 #### [facility] ([id number]) [address] [place] [address] 46503 #### 97569-7 #### [facility] ([id number]) [address], [address] [place] [address] Glucose [Mass/Vol] 377 mg/dL High 65-99 [facility] Comment on above: Performed By: #### B ALCON, CBCA, 1987-08, #### [facility] ([id number]) [address] [place] [address] 69796 #### 39339-7 #### [facility] ([id number]) [address] [place] [address] Potassium [Moles/Vol] 4.2 mmol/L Normal 3.5-5.0 [facility] Comment on above: Performed By: #### Laura RONDON, CBCA, 1987-08, 49617-8 #### [facility] ([id number]) [address] [place] [address] 66859 #### 16148-6 #### [facility] ([id number]) [address], [address] [place] [address] Sodium [Moles/Vol] 126 mmol/L Low 134-146 [facility] Comment on above: Performed By: #### B ALCON, CBCA, 1987-08, 39849-5 #### [facility] ([id number]) [address] [place] [address] 56701 #### 59384-4 #### [facility] ([id number]) [address], [address] [place] [address] Urea nitrogen [Mass/Vol] 30 mg/dL High 5-27 [facility] Comment on above: Performed By: #### B MP, CBCA, 1987-08, 79417-2 #### [facility] ([id number]) [address] [place] [address] 44733 #### 22569-7 #### [facility] ([id number]) [address], [address] [place] [address] CBC AND AUTO DIFFon 04-19-20 23 ABSOLUTE BASOPHIL 0.1 X10E9/L Normal 0.0-0.2 [facility] Comment on above: Performed By: #### B MP, CBCA, 1987-08, 25217-9 #### [facility] ([id number]) [address] [place] [address] 96694 #### 22771-6 #### [facility] ([id number]) [address], [address] [place] [address] ABSOLUTE NEUTROPHIL 8.8 X10E9/L High 1.5-6.6 [facility] Comment on above: Performed By: #### B MP, CBCA, 1987-08, 86009-1 #### [facility] ([id number]) [address] [place] [address] 29450 #### 10141-6 #### [facility] ([id number]) [address], [address] [place] [address] Basophils/100 WBC (Bld) 0.5 % Normal [facility] Comment on above: Performed By: #### B MP, CBCA, 1987-08, 85967-9 #### [facility] ([id number]) [address] [place] [address] 64193 #### 11568-3 #### [facility] ([id number]) [address], [address] [place] [address] Eosinophils (Bld) [#/Vol] 0.3 10*3/uL Normal 0.0-0.4 [facility] Comment on above: Performed By: #### Laura MP, CBCA, 1987-08, 73945-5 #### [facility] ([id number]) [address] [place] [address] 98775 #### 04683-7 #### [facility] ([id number]) [address], [address] [place] [address] Eosinophils/100 WBC (Bld) 2.6 % Normal [facility] Comment on above: Performed By: #### B ALCON, CBCA, 1987-08, 31781-5 #### [facility] ([id number]) [address] [place] [address] 43538 #### 73082-3 #### [facility] ([id number]) [address], [address] [place] [address] Erythrocyte distribution width (RBC) [Ratio] 15.5 % High 11.5-15.0 [facility] Comment on above: Performed By: #### Laura RONDON, CBCA, 1987-08, 18789-5 #### [facility] ([id number]) [address] [place] [address] 46001 #### 26748-1 #### [facility] ([id number]) [address], [address] [place] [address] Hematocrit (Bld) [Volume fraction] 36.8 % Low 39-49 [facility] Comment on above: Performed By: #### B ALCON, CBCA, 1987-08, 21460-9 #### [facility] ([id number]) [address] [place] [address] 21516 #### 31621-1 #### [facility] ([id number]) [address], [address] [place] [address] Hemoglobin (Bld) [Mass/Vol] 12.0 g/dL Low 13.0-17.0 [facility] Comment on above: Performed By: #### Laura RONDON, CBCA, 1987-08, 27388-7 #### [facility] ([id number]) [address] [place] [address] 14397 #### 60212-1 #### [facility] ([id number]) [address], [address] [place] [address] Lymphocytes (Bld) [#/Vol] 1.9 10*3/uL Normal 1.0-3.5 [facility] Comment on above: Performed By: #### B ALCON CBCA, 1987-08, 30461-3 #### [facility] ([id number]) [address] [place] [address] 06330 #### 54375-0 #### [facility] ([id number]) [address], [address] [place] [address] Lymphocytes/100 WBC (Bld) 15.1 % Normal [facility] Comment on above: Performed By: #### Laura RONDON CBCA, 1987-08, 72914-9 #### [facility] ([id number]) [address] [place] [address] 14742 #### 76923-2 #### [facility] ([id number]) [address], [address] [place] [address] MCH (RBC) [Entitic mass] 28.2 pg Normal 27-34 [facility] Comment on above: Performed By: #### Laura RONDON CBCA, 1987-08, 84732-2 #### [facility] ([id number]) [address] [place] [address] 87849 #### 85634-6 #### [facility] ([id number]) [address], [address] [place] [address] MCHC (RBC) [Mass/Vol] 32.7 g/dL Normal 32-36 [facility] Comment on above: Performed By: #### Laura RONDON CBCA, 1987-08, 25912-3 #### [facility] ([id number]) [address] [place] [address] 77024 #### 61438-1 #### [facility] ([id number]) [address], [address] [place] [address] MCV (RBC) [Entitic vol] 86 fL Normal 80-100 [facility] Comment on above: Performed By: #### B ALCON CBCA, 1987-08, #### [facility] ([id number]) [address] [place] [address] 36742 #### 31865-5 #### [facility] ([id number]) [address] [facility] [place] [address] Monocytes (Bld) [#/Vol] 1.4 10*3/uL High 0-0.9 [facility] Comment on above: Performed By: #### Laura RONDON CBCA, 1987-08, #### [facility] ([id number]) [address] [place] [address] 36067 #### 56291-3 #### [facility] ([id number]) [address], [address] [place] [address] Monocytes/100 WBC (Bld) 11.2 % Normal [facility] Comment on above: Performed By: #### Laura RONDON CBCA, 1987-08, 38813-3 #### [facility] ([id number]) [address] [place] [address] 93997 #### 06246-0 #### [facility] ([id number]) [address], [address] [place] [address] Neutrophils/100 WBC (Bld) 70.6 % Normal [facility] Comment on above: Performed By: #### B ALCON, CBCA, 1987-08, 51996-5 #### [facility] ([id number]) [address] [place] [address] 30348 #### 64086-6 #### [facility] ([id number]) [address], [address] [place] [address] Platelet mean volume (Bld) [Entitic vol] 7.6 fL Normal 7-12 [facility] Comment on above: Performed By: #### B ALCON, CBCA, 1987-08, 85806-0 #### [facility] ([id number]) [address] [place] [address] 08415 #### 24570-7 #### [facility] ([id number]) [address], [address] [place] [address] Platelets (Bld) [#/Vol] 325 10*3/uL Normal 150-450 [facility] Comment on above: Performed By: #### Laura RONDON, CBCA, 1987-08, 07610-2 #### [facility] ([id number]) [address] [place] [address] 67423 #### 15352-4 #### [facility] ([id number]) [address], [address] [place] [address] RBC COUNT 4.27 X10E12/L Normal 4.10-5.70 [facility] Comment on above: Performed By: #### Laura RONDON, CBCA, 1987-08, 68249-9 #### [facility] ([id number]) [address] [place] [address] 31997 #### 06830-1 #### [facility] ([id number]) [address], [address] [place] [address] WBC (Bld) [#/Vol] 12.5 10*3/uL High 4.0-11.0 [facility] Comment on above: Performed By: #### B JAMES RONDON, 1987-08, 41627-6 #### [facility] ([id number]) [address] [place] [address] 82543 #### 66918-7 #### [facility] ([id number]) [address], [address] [place] [address] CRP [Mass/Vol]on 04-19-2023 C REACTIVE PROTEIN 7.8 mg/dL High 0.000-0.744 [facility] Comment on above: Performed By: #### JAMES Sanchez MP, 1987-08, 52939-7 #### [facility] ([id number]) [address] [place] [address] 24056 #### 19518-6 #### [facility] ([id number]) [address], [address] [place] [address] ESR Photometric method (Bld) [Velocity]on 04-19-2023 ESR, ERYTHROCYTE SEDIMENTATION RATE 115 mm/h High 0-20 [facility] Comment on above: Performed By: #### JAMES Sanchez MP, 1987-08, 44232-1 #### [facility] ([id number]) [address] [place] [address] 58932 #### 48785-1 #### [facility] ([id number]) [address], [address] [place] [address] Natriuretic peptide.B prohor adrianne N-Terminal [Mass/Vol]on 04-19-2023 NT Pro BNP See Below Normal [facility] Comment on above: Result Comment: NOTE TEST RESULT FLAG UNIT REF.RANGE ---- PRO B Natr Peptide 587 H pg/mL <125 Test Performed By: [facility] [address] [address] Msws: Tyler Valle III, M.D. CLIA #[id number] Performed By: #### B MP, CBCA, 1987-, #### [facility] ([id number]) [address] [facility], [place] [address] #### 58960-5 #### [facility] ([id number]) [address] [place] [address], [address] [place] [address] Basic Metabolic Profon 02-27 Anion gap [Moles/Vol] 11 mmol/L Normal -17 [facility] Comment on above: Performed By: #### S ED, CRP, BMP, CDP #### [facility] [address] [place] [address] Fishing Rod Marker: Jameson Aaron MD BUN/CRE Ratio 16 Normal - [facility] Comment on above: Performed By: #### S ED, CRP, BMP, CDP #### [facility] [address] [place] [address] Fishing Rod Marker: Jameson Aaron MD Calcium [Mass/Vol] 9.4 mg/dL Normal 8.6-10.4 [facility] Comment on above: Performed By: #### S ED, CRP, BMP, CDP #### [facility] [address] [place] [address] Fishing Rod Marker: Jameson Aaron MD Chloride [Moles/Vol] 98 mmol/L Normal 98-107 [facility] Comment on above: Performed By: #### S ED, CRP, BMP, CDP #### [facility] [address] [place] [address] Fishing Rod Marker: Jameson Aaron MD CO2 [Moles/Vol] 18 mmol/L Low 20-31 [facility] Comment on above: Performed By: #### S ED, CRP, BMP, CDP #### [facility] [address] [place] [address] Fishing Rod Marker: Jameson Aaron MD Creatinine [Mass/Vol] 2.7 mg/dL High 0.7-1.2 [facility] Comment on above: Performed By: #### S ED, CRP, BMP, CDP #### [facility] [address] [place] [address] Fishing Rod Marker: Jameson Aaron MD GFR/1.73 sq M.predicted among non-blacks MDRD (S/P/Bld) [Vol rate/Area] 26 mL/min/{1.73_m2} Low >60 [facility] Comment on above: Result Comment: These [...] #### S ED, CRP, BMP, CDP #### [facility] [address] [place] [address] Fishing Rod Marker: Jameson Aaron MD Glucose [Mass/Vol] 268 mg/dL High 70-99 [facility] Comment on above: Performed By: #### S ED, CRP, BMP, CDP #### [facility] [address] [place] [address] Fishing Rod Marker: Jameson Aaron MD Potassium [Moles/Vol] 5.2 mmol/L Normal 3.7-5.3 [facility] Comment on above: Performed By: #### S ED, CRP, BMP, CDP #### [facility] [address] [place] [address] [place], [place] 1158883 Fishing Rod Marker: Jameson Aaron MD Sodium [Moles/Vol] 127 mmol/L Low 135-144 [facility] Comment on above: Performed By: #### S ED, CRP, BMP, CDP #### [facility] [address] [place] [address] [place] [address] Fishing Rod Marker: Jameson Aaron MD Urea nitrogen [Mass/Vol] 44 mg/dL High 8-23 [facility] Comment on above: Performed By: #### S ED, CRP, BMP, CDP #### [address] [place], [place] [address] Fishing Rod Marker: Jameson Aaron MD C-Reactive Proteinon 023 CRP [Mass/Vol] 131.1 mg/L High 0.0-5.0 [facility] Comment on above: Performed By: #### S ED, CRP, BMP, CDP #### [address] [place], [facility] Fishing Rod Marker: Jameson Aaron MD CBC with Diffon 02-27-2023 Abs. Basophil 0.06 k/uL Normal 0.00-0.20 [facility] Comment on above: Performed By: #### S ED, CRP, BMP, CDP #### [facility] [address] [place] [address] Dr[address] [place], [place] [address] Fishing Rod Marker: Jameson Aaron MD Abs.Imm.Granulocyte 0.11 k/uL Normal 0.00-0.30 [facility] Comment on above: Performed By: #### S ED, CRP, BMP, CDP #### [address] [place], [place] [id number] [employer] Rod Marker: Jameson Aaron MD Abs.Neutrophil (Seg) 6.83 k/uL Normal 1.50-8.10 [facility] Comment on above: Performed By: #### S ED, CRP, BMP, CDP #### [address] [place], [place] [id number] [employer] Rod Marker: Jameson Aaron MD Basophils/100 WBC (Bld) 1 % Normal 0-2 [facility] Comment on above: Performed By: #### S ED, CRP, BMP, CDP #### [address] [place], [place] [id number] [employer]ishing Rod Marker: Jameson Aaron MD Eosinophils (Bld) [#/Vol] 0.22 10*3/uL Normal 0.00-0.44 [facility] Comment on above: Performed By: #### S ED, CRP, BMP, CDP #### [address] [place], [place] [id number] [employer]ishing Rod Marker: Jameson Aaron MD Eosinophils/100 WBC (Bld) 2 % Normal 1-4 [facility] Comment on above: Performed By: #### S ED, CRP, BMP, CDP #### [address] [place], [id number] F[employer] Rod Marker: Jameson Aaron MD Erythrocyte distribution width (RBC) [Ratio] 14.6 % High 11.8-14.4 [facility] Comment on above: Performed By: #### S ED, CRP, BMP, CDP #### [address] [place], [place] [id number] [employer]ishing Rod Marker: Jameson Aaron MD Hematocrit (Bld) [Volume fraction] 41.9 % Normal 40.7-50.3 [facility] Comment on above: Performed By: #### S ED, CRP, BMP, CDP #### [address] [place] [address] [employer]ishing Rod Marker: Jameson Aaron MD Hemoglobin (Bld) [Mass/Vol] 13.2 g/dL Normal 13.0-17.0 [facility] Comment on above: Performed By: #### S ED, CRP, BMP, CDP #### [address] [place], [place] [id number] [employer]ishing Rod Marker: Jameson Aaron MD Immature granulocytes/100 WBC (Bld) 1 % High 0 [facility] Comment on above: Performed By: #### S ED, CRP, BMP, CDP #### [address] [place], [place] [id number] [employer]ishing Rod Marker: Jameson Aaron MD Lymphocytes (Bld) [#/Vol] 1.83 10*3/uL Normal 1.10-3.70 [facility] Comment on above: Performed By: #### S ED, CRP, BMP, CDP #### [address] [place], [place] [id number] [employer]ishing Rod Marker: Jameson Aaron MD Lymphocytes/100 WBC (Bld) 18 % Low 24-43 [facility] Comment on above: Performed By: #### S ED, CRP, BMP, CDP #### [address] [place], [place] [id number] Fishing Rod Marker: Jameson Aaron MD MCH (RBC) [Entitic mass] 28.2 pg Normal 25.2-33.5 [facility] Comment on above: Performed By: #### S ED, CRP, BMP, CDP #### [address] [place], [place] [address] Fishing [employer] Marker: Jameson Aaron MD MCHC (RBC) [Mass/Vol] 31.5 g/dL Normal 28.4-34.8 [facility] Comment on above: Performed By: #### S ED, CRP, BMP, CDP #### [address] [place] [address] Fishing Rod Marker: Jameson Aaron MD MCV (RBC) [Entitic vol] 89.5 fL Normal 82.6-102.9 [facility] Comment on above: Performed By: #### S ED, CRP, BMP, CDP #### [address] [place], [place] [id number] Fishing Rod Marker: Jameson Aaron MD Monocytes (Bld) [#/Vol] 1.42 10*3/uL High 0.10-1.20 [facility] Comment on above: Performed By: #### S ED, CRP, BMP, CDP #### [facility] [address] [place], [place] [address] Fishing Rod Marker: Jameson Aaron MD Monocytes/100 WBC (Bld) 14 % High 3-12 [facility] Comment on above: Performed By: #### S ED, CRP, BMP, CDP #### [address] [place], [place] [address] Fishing Rod Marker: Jameson Aaron MD Neutrophil (Seg) 64 % Normal 36-65 [facility] Comment on above: Performed By: #### S ED, CRP, BMP, CDP #### [address] [place], [facility]83 Fishing [employer] Marker: Jameson Aaron MD NRBC Automated 0.0 per 100 WBC Normal 0.0 [facility] Comment on above: Performed By: #### S ED, CRP, BMP, CDP #### [address] [place], [facility]83 Fishing Rod Marker: Jameson Aaron MD Platelet mean volume (Bld) [Entitic vol] 9.4 fL Normal 8.1-13.5 [facility] Comment on above: Performed By: #### S ED, CRP, BMP, CDP #### [address] [place], [place] [address] Fishing Rod Marker: Jameson Aaron MD Platelets (Bld) [#/Vol] 266 10*3/uL Normal 138-453 [facility] Comment on above: Performed By: #### S ED, CRP, BMP, CDP #### [address] [place] [address] Fishing Rod Marker: Jameson Aaron MD RBC (Bld) [#/Vol] 4.68 10*6/uL Normal 4.21-5.77 [facility] Comment on above: Performed By: #### S ED, CRP, BMP, CDP #### [facility] [address] [place] [address] Fishing Rod Marker: Jameson Aaron MD WBC (Bld) [#/Vol] 10.5 10*3/uL Normal 3.5-11.3 [facility] Comment on above: Performed By: #### S ED, CRP, BMP, CDP #### [facility] [address] [place] [address] Fishing Rod Marker: Jameson Aaron MD Sedimentation Rateon 023 Sedimentation Rate 114 mm/Hr High 0-20 [facility] Comment on above: Performed By: #### S ED, CRP, BMP, CDP #### [facility] [address] [place] [address] Fishing Rod Marker: Jameson Aaron MD FUNGAL CULTUREon 09-21-2022 Fungus (Mycology) Culture Final report Abnormal [facility] Comment on above: Performed By: #### C XFUN ####[facility] [address] [place], [place] [address]Dr. Eddie Lerner Fungus Stain Final report Normal [facility] Comment on above: Performed By: #### C XFUN ####[facility] [address] [place] [address]Dr. Eddie Lerner Result 1 Comment Normal [facility] Comment on above: Result Comment: ANNEMARIE/ Calcofluor preparation: no fungus observed. Performed By: #### C XFUN ####[facility] F[address] [place], [place] [address]Dr. Eddie Lerner Result 1 Rosy albicans Abnormal [facility] Comment on above: Performed By: #### C XFUN ####[facility] [address] [place] [address]Dr. Eddie Lerner CULTURE OTHERon 08-23-2022 CULTURE OTHER Isolate 1 Enterococcus faecalis Light growth of ORGANISM 1 Enterococcus faecalis ANTIBIOTIC M.I.C RX STATUS Beta-Lactamase Neg NEG F Benzylpenicillin 0.5 S F Ampicillin <=2 S F Gentamicin High Level (synergy) SYN-R R F Streptomycin High Level (synergy) SYN-S S F Quinupristin/Dalfopristin 4 R F Linezolid 1 S F Vancomycin 1 S F Normal [facility] Comment on above: Performed By: #### O THCX ####[facility] [address] [place] [address]Dr. Eddie Lerner ACID FAST SMEAR AND CXon Acid Fast Smear Negative Normal [facility] Comment on above: Performed By: #### A FB ####[facility] [address] [place], [place] [address]Dr. Eddie Lerner [employer] Specimen Processing [facility] Comment on above: Performed By: #### A FB ####[facility] [address] [place], [place] [address]Dr. Eddie Lerner BNPon 08-20-2022 Natriuretic peptide B (Bld) [Mass/Vol] 648.0 pg/mL Normal <=900.[address] [facility] Comment on above: Performed By: #### A 1C #### [facility] [address] [place] [address] [address] Eddie Lerner CULTURE ANAEROBICon 08-21-19 23 CULTURE ANAEROBIC Culture Observations : NO GROWTH OF ANAEROBES AT [address] [facility] Comment on above: Performed By: #### A NACX ####[facility] [address] [place], [place] [address]Dr. Eddie Lerner GLYCOHEMOGLOBIN A1Con 2022 ADA RECOMMENDATION SEE BELOW Normal [facility] Comment on above: Result Comment: ADA RECOMMENDED LIMIT 4.0 - 6.0 ADA THERAPEUTIC TARGET < 7.0 ACTION SUGGESTED > 7.0 Performed By: #### R ENAL, LIPID, LIVER, TSH #### [facility] [address] [place] [address] [address] Eddie Lerner Glucose [Mass/Vol] 235 mg/dL Normal [facility] Comment on above: Performed By: #### R ENAL, LIPID, LIVER, TSH #### [facility] [address] [place] [address] [address] Eddie Lerner HbA1c (Bld) [Mass fraction] 9.8 % Critically high 4.5-6.[address] [facility] Comment on above: Performed By: #### R ENAL, LIPID, LIVER, TSH #### [facility] [address] [place] [address] [address] Eddie Lerner GRAM STAINon 08-20-2022 COMMENTS NO ORGANISMS OBSERVED Normal [facility] Comment on above: Performed By: #### G STAIN ####[facility] [address] [place] [address]Dr. Eddie Lerner DIPHTHEROIDS Normal [facility] Comment on above: Performed By: #### G STAIN ####[facility] [address] [place] [address]Dr. Eddie Lerner EPITHELIALS Normal [facility] Comment on above: Performed By: #### G STAIN ####[facility] [address] [place] [address]Dr. Eddie Lerner FUNGAL ELEMENTS Normal [facility] Comment on above: Performed By: #### G STAIN ####[facility] [address] [place] [address]Dr. Eddie Lerner GRAM NEG BACILLI Normal [facility] Comment on above: Performed By: #### G STAIN ####[facility] [address] [place] [address]Dr. Eddie Lerner GRAM NEG DIPPLOCOCCI Normal [facility] Comment on above: Performed By: #### G STAIN ####[facility] [address] [place] [address]Dr. Eddie Lerner GRAM POS BACILLI Normal [facility] Comment on above: Performed By: #### G STAIN ####[facility] [address] [place] [address]Dr. Eddie Lerner GRAM POSITIVE COCCI Normal [facility] Comment on above: Performed By: #### G STAIN ####[facility] [address] [place], [place] [address]Gr. Eddie Lerner GRAM STAIN SOURCE Lt Foot Bone Normal [facility] Comment on above: Performed By: #### G STAIN ####[facility] [address] [place], [place] [address]Ad. Eddie Lerner GS_DIPTH Normal [facility] Comment on above: Performed By: #### G STAIN ####[facility] [address] [place], [place] [address]Ls. Eddie Lerner WBC RARE Normal [facility] Comment on above: Performed By: #### G STAIN ####[facility] [address] [place], [place] [address]Zm. Eddie Lerner LIPID PROFILEon 08-20-2022 CHOL-HDL RATIO NORM SEE BELOW Normal [facility] Comment on above: Result Comment: 3.3 - 4.4 LOW RISK 4.4 - 7.1 AVERAGE RISK 7.1 - 11.0 MODERATE RISK >11.0 HIGH RISK Performed By: #### A 1C #### [facility] [address] [place] [address] [address] Eddie Lerner Cholesterol [Mass/Vol] 137 mg/dL Normal <=200 [facility] Comment on above: Performed By: #### A 1C #### [facility] [address] [place] [address] [address] Eddie Lerner Cholesterol in HDL [Mass/Vol] 54 mg/dL Normal 40-60 [facility] Comment on above: Performed By: #### A 1C #### [facility] [address] [place] [address] [address] Eddie Lerner Cholesterol in LDL [Mass/Vol] 63.2 mg/dL Normal [facility] Comment on above: Performed By: #### A 1C #### [facility] [address] [place] [address] [address] Eddie Lerner Cholesterol.total/C holesterol in HDL [Mass ratio] 2.5 {ratio} Normal [facility] Comment on above: Performed By: #### A 1C #### [facility] [address] [place] [address] [address] Eddie Lerner HDL NORMAL > or = 60 mg/dl - LO W CARDIOVASCULAR RISK <40 mg/dl - HIGH CARDIOVASCULAR RISK Normal [facility] Comment on above: Performed By: #### A 1C #### [facility] [address] [place] [address] [address] Eddie Lerner LDL CALC NORMAL SEE BELOW Normal [facility] Comment on above: Result Comment: <100 mg/dl OPTIMAL 100 - 129 mg/dl NEAR OR ABOVE OPTIMAL 130 - 159 mg/dl BORDERLINE HIGH 160 - 189 mg/dl HIGH >190 mg/dl VERY HIGH Performed By: #### A 1C #### [facility] [address] [place] [address] Dr. Eddie Lerner Triglyceride [Mass/Vol] 99 mg/dL Normal <=150 [facility] Comment on above: Performed By: #### A 1C #### [facility] [address] [place] [address] Dr. Eddie Lerner VLDL CALC 19.8 mg/dL Normal [facility] Comment on above: Performed By: #### A 1C #### [facility] [address] [place] [address] Dr. Eddie Lerner LIVER PROFILEon 08-20-2022 Albumin [Mass/Vol] 2.8 g/dL Critically low 3.4-5.0 [facility] Comment on above: Performed By: #### A 1C #### [facility] [address] [place] [address] Dr. Eddie Lerner Albumin/Globulin [Mass ratio] 0.6 {ratio} Normal [facility] Comment on above: Performed By: #### A 1C #### [facility] [address] [place] [address] Dr. Eddie Lerner ALP [Catalytic activity/Vol] 87 U/L Normal 46-116 [facility] Comment on above: Performed By: #### A 1C #### [facility] [address] [place] [address] Dr. Eddie Lerner ALT [Catalytic activity/Vol] 49 U/L Normal 16-63 [facility] Comment on above: Performed By: #### A 1C #### [facility] [address] [place], [place] [id number] Dr. Eddie Lerner AST [Catalytic activity/Vol] 36 U/L Normal 15-37 [facility] Comment on above: Performed By: #### A 1C #### [facility] [address] [place] [address] [address] Eddie Lerner BILI, CONJUGATED 0.1 mg/dL Normal 0.0-0.2 [facility] Comment on above: Performed By: #### A 1C #### [facility] [address] [place] [address] [address] Eddie Lerner Bilirubin [Mass/Vol] 0.4 mg/dL Normal 0.2-1.0 [facility] Comment on above: Performed By: #### A 1C #### [facility] [address] [place] [address] Dr. Eddie Lerner Globulin (S) [Mass/Vol] 4.4 g/dL Normal [facility] Comment on above: Performed By: #### A 1C #### [facility] [address] [place] [address] Dr. Eddie Lerner Protein [Mass/Vol] 7.2 g/dL Normal 6.4-8.2 [facility] Comment on above: Performed By: #### A 1C #### [facility] [address] [place] [address] Dr. Eddie Lerner POINT OF CARE GLUCOSEon 07-29 Glucose [Mass/Vol] 107 mg/dL Critically high 74-106 [facility] Comment on above: Performed By: #### P OCGLUC #### [facility] [address] [place] [address] Dr. Eddie Lerner Glucose [Mass/Vol] 108 mg/dL Critically high 74-106 [facility] Comment on above: Performed By: #### P OCGLUC ####[facility] [address] [place] [address]Dr. Eddie Lerner TSHon 08-20-2022 TSH 2.247 uIU/mL Normal 0.358-3.740 [facility] Comment on above: Performed By: #### A 1C #### [facility] [address] [place] [address] [address] Eddie Lerner CBC AUTO DIFFon 08-15-2022 BASO # 0.0 103/ul Normal 0.0-0.[address] [facility] Comment on above: Performed By: #### C BC ####[facility] [address] [place] [address]Dr. Eddie Lerner Basophils/100 WBC (Bld) 0.4 % Normal 0.2-2.[address] [facility] Comment on above: Performed By: #### C BC ####[facility] Iz[address] [place], [place] [address]DrVaishali Lerner EO # 0.2 103/ul Normal 0.0-0.[address] [facility] Comment on above: Performed By: #### C BC ####[facility] [address] [place], [place] [address]DrVaishali Lerner Eosinophils/100 WBC (Bld) 2.0 % Normal 0.9-7.[address] [facility] Comment on above: Performed By: #### C BC ####[facility] [address] [place], [place] [address]DrVaishali Lerner Erythrocyte distribution width (RBC) [Ratio] 14.5 % Normal 11.0-15.0 [facility] Comment on above: Performed By: #### C BC ####[facility] [address] [place], [place] [address]DrVaishali Lerner Hematocrit (Bld) [Volume fraction] 40.5 % Critically low 42.0-54.0 [facility] Comment on above: Performed By: #### C BC ####[facility] [address]qsx[address] [place], [place] [address]Dr. Eddie Lerner Hemoglobin (Bld) [Mass/Vol] 13.1 g/dL Critically low 14.0-18.[address] [facility] Comment on above: Performed By: #### C BC ####[facility] Ghagicbfav[address] [place], [place] [address]DrVaishali Lerner IG # 0.12 10e3/ul Critically high 0.00-0.03 [facility] Comment on above: Performed By: #### C BC ####[facility] [address] [place] [address]Dr. Eddie Lerner IG % 1.2 % Critically high 0.0-0.5 [facility] Comment on above: Performed By: #### C BC ####[facility] [address]uywn[address] [place] [address]Dr. Eddie Lerner LYMPH # 1.4 103/ul Normal 1.2-3.[address] [facility] Comment on above: Performed By: #### C BC ####[facility] [address] [place] [address]Dr. Eddie Lerner Lymphocytes/100 WBC (Bld) 13.6 % Critically low 20.5-60.0 [facility] Comment on above: Performed By: #### C BC ####[facility] [address]fca[address] [place] [address]Dr. Eddie Lerner MANUAL DIFF REQ NO Normal [facility] Comment on above: Performed By: #### C BC ####[facility] [address] [place] [address]Dr. Eddie Lerner MCH (RBC) [Entitic mass] 29.8 pg Normal 25.9-34.0 [facility] Comment on above: Performed By: #### C BC ####[facility] [address]tspud[address] [place] [address]Dr. Eddie Lerner MCHC (RBC) [Mass/Vol] 32.3 g/dL Normal 29.9-35.[address] [facility] Comment on above: Performed By: #### C BC ####[facility] Yt[address]ryf[address] [place] [address]Dr. Eddie Lerner MCV (RBC) [Entitic vol] 92.0 fL Normal 80.0-94.[address] [facility] Comment on above: Performed By: #### C BC ####[facility] [address]hs[address]vn[address] [place] [address]Dr. Eddie Yann MONO # 0.5 103/ul Normal 0.3-0.[address] [facility] Comment on above: Performed By: #### C BC ####[facility] [address]xrdvtx[address] [place] [address]Dr. Eddie Lerner Monocytes/100 WBC (Bld) 4.8 % Normal 1.7-12.[address] [facility] Comment on above: Performed By: #### C BC ####[facility] Qtwx[address]ajzml[address] [place] [address]Dr. Eddie Lerner NEUT # 8.1 103/ul Critically high 1.4-6.[address] [facility] Comment on above: Performed By: #### C BC ####[facility] N[address]fk[address] [place] [address]Dr. Eddie Lerner Neutrophils/100 WBC (Bld) 78.0 % Critically high 43.0-75.[address] [facility] Comment on above: Performed By: #### C BC ####[facility] [address] [place], [place] [address]Dr. Eddie Lerner Platelet mean volume (Bld) [Entitic vol] 8.6 fL Critically low 9.5-13.[address] [facility] Comment on above: Performed By: #### C BC ####[facility] V[address]sb[address] [place] [address]Dr. Eddie Lerner PLT 240 103/ul Normal 150-[address] [facility] Comment on above: Performed By: #### C BC ####[facility] J[address]ifmepryd[address] [place] [address]Dr. Eddie Lerner RBC 4.40 106/ul Critically low 4.70-6.[address] [facility] Comment on above: Performed By: #### C BC ####[facility] [address] [place], [place] [address]Dr. Eddie Lerner WBC 10.3 103/ul Normal 4.0-11.[address] [facility] Comment on above: Performed By: #### C BC ####[facility] [address]bp[address] [place] [address]Dr. Eddie Lerner CRPon 08-15-2022 CRP [Mass/Vol] mg/L Normal <=1.[address] [facility] Comment on above: Performed By: #### A 1C #### [facility] [address] [place] [address] [address] Eddie Lerner PROF CHEM 8 (BAS METB)on Anion gap [Moles/Vol] 14.4 mmol/L Normal [facility] Comment on above: Performed By: #### A 1C #### [facility] [address] [place] [address] [address] Eddie Lerner Calcium [Mass/Vol] 9.2 mg/dL Normal 8.5-10.1 [facility] Comment on above: Performed By: #### A 1C #### [facility] [address] [place] [address] [address] Eddie Lerner Chloride [Moles/Vol] 101 mmol/L Normal 98-107 [facility] Comment on above: Performed By: #### A 1C #### [facility] [address] [place] [address] Dr. Eddie Lerner CO2 [Moles/Vol] 25.2 mmol/L Normal 21.0-32.0 [facility] Comment on above: Performed By: #### A 1C #### [facility] [address] [place] [address] Dr. Eddie Lerner Creatinine [Mass/Vol] 3.07 mg/dL Critically high 0.70-1.30 [facility] Comment on above: Performed By: #### A 1C #### [facility] [address] [place] [address] Dr. Eddie Lerner EGFR-AF ECUADOREAN 25 mL/min/1.73m2 Critically low >=60 [facility] Comment on above: Performed By: #### A 1C #### [facility] [address] [place] [address] [address] Eddei Lerner EGFR-NON AF ECUADOREAN 21 mL/min/1.73m2 Critically low >=60 [facility] Comment on above: Performed By: #### A 1C #### [facility] [address] [place] [address] [address] Eddie Lerner Glucose [Mass/Vol] 415 mg/dL Critically high 74-106 [facility] Comment on above: Performed By: #### A 1C #### [facility] [address] [place] [address] [address] Eddie Lerner Potassium [Moles/Vol] 5.6 mmol/L Critically high 3.5-5.1 [facility] Comment on above: Performed By: #### A 1C #### [facility] [address] [place] [address] [address] Eddie Lerner Sodium [Moles/Vol] 135 mmol/L Critically low 136-145 [facility] Comment on above: Performed By: #### A 1C #### [facility] [address] [place] [address] [address] Eddie Lerner Urea nitrogen [Mass/Vol] 34.0 mg/dL Critically high 7.0-18.0 [facility] Comment on above: Performed By: #### A 1C #### [facility] [address] [place] [address] Dr. Eddie Lerner Urea nitrogen/Creatinine [Mass ratio] 11.1 mg/mg Normal [facility] Comment on above: Performed By: #### A 1C #### [facility] [address] [place] [address] Dr. Eddie Lerner [facility] SED RATE 59 mm/hr Critically high <=20 [facility] Comment on above: Performed By: #### S EDR ####[facility] [address] [place] [address]Dr. Eddie Lerner BNPon 06-06-2022 Natriuretic peptide B (Bld) [Mass/Vol] 1342.0 pg/mL Critically high <=900.0 [facility] Comment on above: Performed By: #### B CALCINER FEEDER ####[facility] [address] [place] [address]Dr. Eddie Lerner CBC AUTO DIFFon 06-06-2022 BASO # 0.1 103/ul Normal 0.0-0.1 [facility] Comment on above: Performed By: #### A 1C #### [facility] [address] [place] [address] Dr. Eddie Lerner Basophils/100 WBC (Bld) 0.6 % Normal 0.2-2.0 [facility] Comment on above: Performed By: #### A 1C #### [facility] [address] [place] [address] Dr. Eddie Lerner EO # 0.2 103/ul Normal 0.0-0.7 [facility] Comment on above: Performed By: #### A 1C #### [facility] [address] [place] [address] Dr. Eddie Lerner Eosinophils/100 WBC (Bld) 1.8 % Normal 0.9-7.0 [facility] Comment on above: Performed By: #### A 1C #### [facility] [address] [place] [address] Dr. Eddie Lerner Erythrocyte distribution width (RBC) [Ratio] 15.2 % Critically high 11.0-15.0 [facility] Comment on above: Performed By: #### A 1C #### [facility] [address] [place] [address] Dr. Eddie Lerner Hematocrit (Bld) [Volume fraction] 39.0 % Critically low 42.0-54.0 [facility] Comment on above: Performed By: #### A 1C #### [facility] [address] [place] [address] Dr. Eddie Lerner Hemoglobin (Bld) [Mass/Vol] 12.4 g/dL Critically low 14.0-18.0 [facility] Comment on above: Performed By: #### A 1C #### [facility] [address] [place] [address] Dr. Eddie Lerner IG # 0.21 10e3/ul Critically high 0.00-0.03 [facility] Comment on above: Performed By: #### A 1C #### [facility] [address] [place] [address] Dr. Eddie Lerner IG % 1.6 % Critically high 0.0-0.5 [facility] Comment on above: Performed By: #### A 1C #### [facility] [address] [place] [address] Dr. Eddie Lerner LYMPH # 1.9 103/ul Normal 1.2-3.8 [facility] Comment on above: Performed By: #### A 1C #### [facility] [address] [place] [address] Dr. Eddie Lerner Lymphocytes/100 WBC (Bld) 13.8 % Critically low 20.5-60.0 [facility] Comment on above: Performed By: #### A 1C #### [facility] [address] [place] [address] Dr. Eddie Lerner MANUAL DIFF REQ NO Normal [facility] Comment on above: Performed By: #### A 1C #### [facility] [address] [place] [address] Dr. Eddie Lerner MCH (RBC) [Entitic mass] 27.8 pg Normal 25.9-34.0 [facility] Comment on above: Performed By: #### A 1C #### [facility] [address] [place] [address] Dr. Eddie Lerner MCHC (RBC) [Mass/Vol] 31.8 g/dL Normal 29.9-35.2 [facility] Comment on above: Performed By: #### A 1C #### [facility] [address] [place] [address] Dr. Eddie Lerner MCV (RBC) [Entitic vol] 87.4 fL Normal 80.0-94.0 [facility] Comment on above: Performed By: #### A 1C #### [facility] [address] [place] [address] Dr. Eddie Lerner MONO # 0.8 103/ul Normal 0.3-0.8 [facility] Comment on above: Performed By: #### A 1C #### [facility] [address] [place] [address] Dr. Eddie Lerner Monocytes/100 WBC (Bld) 5.9 % Normal 1.7-12.0 [facility] Comment on above: Performed By: #### A 1C #### [facility] [address] [place] [address] Dr. Eddie Lerner NEUT # 10.3 103/ul Critically high 1.4-6.5 [facility] Comment on above: Performed By: #### A 1C #### [facility] [address] [place] [address] [address] Eddie Lerner Neutrophils/100 WBC (Bld) 76.3 % Critically high 43.0-75.0 [facility] Comment on above: Performed By: #### A 1C #### [facility] [address] [place] [address] Dr. Eddie Lerner Platelet mean volume (Bld) [Entitic vol] 10.2 fL Normal 9.5-13.5 [facility] Comment on above: Performed By: #### A 1C #### [facility] [address] [place] [address] Dr. Eddie Lerner PLT 288 103/ul Normal 150-450 [facility] Comment on above: Performed By: #### A 1C #### [facility] [address] [place] [address] Dr. Eddie Lerner RBC 4.46 106/ul Critically low 4.70-6.10 [facility] Comment on above: Performed By: #### A 1C #### [facility] [address] [address] [address] Eddie Lerner WBC 13.5 103/ul Critically high 4.0-11.0 [facility] Comment on above: Performed By: #### A 1C #### [facility] [address] [place] [address] Dr. Eddie Lerner GLYCOHEMOGLOBIN A1Con 2022 ADA RECOMMENDATION SEE BELOW Normal [facility] Comment on above: Result Comment: ADA RECOMMENDED LIMIT 4.0 - 6.0 ADA THERAPEUTIC TARGET < 7.0 ACTION SUGGESTED > 7.0 Performed By: #### A 1C #### [facility] [address] [place] [address] Dr. Eddie Lerner Glucose [Mass/Vol] 283 mg/dL Normal [facility] Comment on above: Performed By: #### A 1C #### [facility] [address] [place] [address] Dr. Eddie Lerner HbA1c (Bld) [Mass fraction] 11.5 % Critically high 4.5-6.2 [facility] Comment on above: Performed By: #### A 1C #### [facility] [address] [address] [address] Eddei Lerner LIPID PROFILEon 06-06-2022 CHOL-HDL RATIO NORM SEE BELOW Normal [facility] Comment on above: Result Comment: 3.3 - 4.4 LOW RISK 4.4 - 7.1 AVERAGE RISK 7.1 - 11.0 MODERATE RISK >11.0 HIGH RISK Performed By: #### R ENAL, LIPID, LIVER, TSH #### [facility] [address] [address] [address] Eddie Lerner Cholesterol [Mass/Vol] 152 mg/dL Normal <=200 [facility] Comment on above: Performed By: #### R ENAL, LIPID, LIVER, TSH #### [facility] [address] [place] [address] Dr. Eddie Lerner Cholesterol in HDL [Mass/Vol] 51 mg/dL Normal 40-60 [facility] Comment on above: Performed By: #### R ENAL, LIPID, LIVER, TSH #### [facility] [address] [address] [address] Eddie Lerner Cholesterol in LDL [Mass/Vol] 61.0 mg/dL Normal [facility] Comment on above: Performed By: #### R ENAL, LIPID, LIVER, TSH #### [facility] [address] [address] [address] Eddie Lerner Cholesterol.total/C holesterol in HDL [Mass ratio] 3.0 {ratio} Normal [facility] Comment on above: Performed By: #### R ENAL, LIPID, LIVER, TSH #### [facility] [address] [address] [address] Eddie Lerner HDL NORMAL > or = 60 mg/dl - LO W CARDIOVASCULAR RISK <40 mg/dl - HIGH CARDIOVASCULAR RISK Normal [facility] Comment on above: Performed By: #### R ENAL, LIPID, LIVER, TSH #### [facility] [address] [address] [address] Edide Lerner LDL CALC NORMAL SEE BELOW Normal [facility] Comment on above: Result Comment: <100 mg/dl OPTIMAL 100 - 129 mg/dl NEAR OR ABOVE OPTIMAL 130 - 159 mg/dl BORDERLINE HIGH 160 - 189 mg/dl HIGH >190 mg/dl VERY HIGH Performed By: #### R ENAL, LIPID, LIVER, TSH #### [facility] [address] [address] [address] Eddie Lerner Triglyceride [Mass/Vol] 200 mg/dL Critically high <=150 [facility] Comment on above: Performed By: #### R ENAL, LIPID, LIVER, TSH #### [facility] [address] [address] [address] Eddie Lerner VLDL CALC 40.0 mg/dL Normal [facility] Comment on above: Performed By: #### R ENAL, LIPID, LIVER, TSH #### [facility] [address] [address] [address] Eddie Lerner LIVER PROFILEon 06-06-2022 Albumin [Mass/Vol] 2.6 g/dL Critically low 3.4-5.0 [facility] Comment on above: Performed By: #### R ENAL, LIPID, LIVER, TSH #### [facility] [address] [address] [address] Eddie Lerner Albumin/Globulin [Mass ratio] 0.6 {ratio} Normal [facility] Comment on above: Performed By: #### R ENAL, LIPID, LIVER, TSH #### [facility] [address] [address] [address] Eddie Lerner ALP [Catalytic activity/Vol] 120 U/L Critically high 46-116 [facility] Comment on above: Performed By: #### R ENAL, LIPID, LIVER, TSH #### [facility] [address] [address] [address] Eddie Lerner ALT [Catalytic activity/Vol] 22 U/L Normal 16-63 [facility] Comment on above: Performed By: #### R ENAL, LIPID, LIVER, TSH #### [facility] [address] [address] [address] Eddie Lerner AST [Catalytic activity/Vol] 15 U/L Normal 15-37 [facility] Comment on above: Performed By: #### R ENAL, LIPID, LIVER, TSH #### [facility] [address] [place] [address] Dr. Eddie Lerner BILI, CONJUGATED 0.1 mg/dL Normal 0.0-0.[address] [facility] Comment on above: Performed By: #### R ENAL, LIPID, LIVER, TSH #### [facility] [address] [place] [address] Dr. Eddie Lerner Bilirubin [Mass/Vol] 0.3 mg/dL Normal 0.2-1.[address] [facility] Comment on above: Performed By: #### R ENAL, LIPID, LIVER, TSH #### [facility] [address] [place] [address] Dr. Eddie Lerner Globulin (S) [Mass/Vol] 4.7 g/dL Normal [facility] Comment on above: Performed By: #### R ENAL, LIPID, LIVER, TSH #### [facility] [address] [place] [address] Dr. Eddie Lerner Protein [Mass/Vol] 7.3 g/dL Normal 6.4-8.[address] [facility] Comment on above: Performed By: #### R ENAL, LIPID, LIVER, TSH #### [facility] [address] [place] [address] Dr. Eddie Lerner RENAL FUNCTION PANELon 06-06 Calcium [Mass/Vol] 9.0 mg/dL Normal 8.5-10.[address] [facility] Comment on above: Performed By: #### R ENAL, LIPID, LIVER, TSH #### [facility] [address] [place] [address] Dr. Eddie Lerner Chloride [Moles/Vol] 96 mmol/L Critically low 98-[address] [facility] Comment on above: Performed By: #### R ENAL, LIPID, LIVER, TSH #### [facility] [address] [place] [address] Dr. Eddie Lerner CO2 [Moles/Vol] 21.8 mmol/L Normal 21.0-32.[address] [facility] Comment on above: Performed By: #### R ENAL, LIPID, LIVER, TSH #### [facility] [address] [address] [address] Eddie Lerner Creatinine [Mass/Vol] 2.38 mg/dL Critically high 0.70-1.30 [facility] Comment on above: Performed By: #### R ENAL, LIPID, LIVER, TSH #### [facility] [address] [place] [address] Dr. Eddie Lerner EGFR-AF ECUADOREAN 34 mL/min/1.73m2 Critically low >=60 [facility] Comment on above: Performed By: #### R ENAL, LIPID, LIVER, TSH #### [facility] [address] [place] [address] Dr. Eddie Lerner EGFR-NON AF ECUADOREAN 28 mL/min/1.73m2 Critically low >=60 [facility] Comment on above: Performed By: #### R ENAL, LIPID, LIVER, TSH #### [facility] [address] [place] [address] Dr. Eddie Lerner Glucose [Mass/Vol] 523 mg/dL Critically high 74-106 [facility] Comment on above: Performed By: #### R ENAL, LIPID, LIVER, TSH #### [facility] [address] [place] [address] Dr. Eddie Lerner Phosphate [Mass/Vol] 4.1 mg/dL Normal 2.6-4.7 [facility] Comment on above: Performed By: #### R ENAL, LIPID, LIVER, TSH #### [facility] [address] [place] [address] Dr. Eddie Lerner Potassium [Moles/Vol] 4.6 mmol/L Normal 3.5-5.1 [facility] Comment on above: Performed By: #### R ENAL, LIPID, LIVER, TSH #### [facility] [address] [place] [address] Dr. Eddie Lerner Sodium [Moles/Vol] 128 mmol/L Critically low 136-145 [facility] Comment on above: Performed By: #### R ENAL, LIPID, LIVER, TSH #### [facility] [address] [place] [address] Dr. Eddie Lerner Urea nitrogen [Mass/Vol] 28.0 mg/dL Critically high 7.0-18.0 [facility] Comment on above: Performed By: #### R ENAL, LIPID, LIVER, TSH #### [facility] [address] [place] [address] Dr. Eddie Lerner TSHon 06-06-2022 TSH 1.308 uIU/mL Normal 0.358-3.740 [facility] Comment on above: Performed By: #### R ENAL, LIPID, LIVER, TSH #### [facility] [address] [place] [address] Dr. Eddie Lerner UA RANDOMon 06-06-2022 Bilirubin Ql (U) Negative Normal NEGATIVE [facility] Comment on above: Performed By: #### U A #### [facility] [address] [place] [address] Dr. Eddie Lerner Clarity (U) CLEAR Normal CLEAR [facility] Comment on above: Performed By: #### U A #### [facility] [address] [place] [address] Dr. Eddie Lerner Color (U) LT. YELLOW Normal YELLOW [facility] Comment on above: Performed By: #### U A #### [facility] [address] [place] [address] Dr. Eddie Lerner Glucose Ql (U) >[address] [facility] Comment on above: Performed By: #### U A #### [facility] [address] [place] [address] Dr. Eddie Lerner Hemoglobin Ql (U) TRACE-INTACT Abnormal NEGATIVE [facility] Comment on above: Performed By: #### U A #### [facility] [address] [place] [address] Dr. Eddie Lerner Ketones Ql (U) Negative Normal NEGATIVE [facility] Comment on above: Performed By: #### U A #### [facility] [address] [place] [address] Dr. Eddie Lerner LEUKOCYTES Negative Normal NEGATIVE [facility] Comment on above: Performed By: #### U A #### [facility] [address] [address] [address] Eddie Lerner Nitrite Ql (U) Negative Normal NEGATIVE [facility] Comment on above: Performed By: #### U A #### [facility] [address] [address] [address] Eddie Lerner pH (U) 6.5 [pH] Normal 5-[address] [facility] Comment on above: Performed By: #### U A #### [facility] [address] [address] [address] Eddie Lerner SPEC GRAVITY 1.010 Normal 1.005-<=1.025 [facility] Comment on above: Performed By: #### U A #### [facility] [address] [address] [address] Eddie Lerner UA PROTEIN 100 mg/dl Abnormal NEGATIVE/ TRACE [facility] Comment on above: Performed By: #### U A #### [facility] [address] [address] [address] Eddie Lerner Urobilinogen Qn (U) 0.2 {Chaya'U}/dL Normal 0.2 - 1. 0 [facility] Comment on above: Performed By: #### U A #### [facility] [address] [place] [address] Dr. Eddie Lerner VITAMIN D 25 OHon 06-06-2022 VIT D 25-OH 13.9 ng/mL Normal [facility] Comment on above: Performed By: #### V ITAD ####[facility] [address] [address]Dr. Eddie Lerner VIT D RANGES SEE BELOW Normal [facility] Comment on above: Result Comment: <20 ng/mL Vit D deficient 20 - <30 ng/mL Vit D insufficient 30 - 100 ng/mL Vit D sufficient >100 ng/mL Potential Toxicity Performed By: #### V ITAD ####[facility] [address] [address]Dr. Eddie Lerner ACID FAST SMEAR AND CXon Acid Fast Culture Negative Normal [facility] Comment on above: Result Comment: No a wendy fast bacilli isolated after 6 weeks. Performed By: #### A FB ####[facility] [address] [address]DrVaishali Lerner Acid Fast Smear Negative Normal [facility] Comment on above: Performed By: #### A FB ####[facility] [address] [address]DrVaishali Lerner [employer] Specimen Processing Tissue Grinding Normal [facility] Comment on above: Performed By: #### A FB ####[facility] [address] [address]Dr. Eddie Lerner FUNGAL CULTUREon 01-19-2022 Fungus (Mycology) Culture Final report [facility] Comment on above: Performed By: #### R ENAL, LIPID, LIVER, TSH #### [facility] [address] [address] [address] Eddie Lerner Fungus Stain Final report [facility] Comment on above: Performed By: #### R ENAL, LIPID, LIVER, TSH #### [facility] [address] [address] [address] Eddie Lerner Result [address] [facility] Comment on above: Result Comment: ANNEMARIE/ Calcofluor preparation: no fungus observed. Performed By: #### R ENAL, LIPID, LIVER, TSH #### [facility] [address] [address] [address] Eddie Lerner Result Comment: No y east or mold isolated after 4 weeks. POINT OF CARE GLUCOSEon - Glucose [Mass/Vol] 177 mg/dL Critically high 74-106 [facility] Comment on above: Performed By: #### A 1C #### [facility] [address] [address] [address] Eddie Lerner Glucose [Mass/Vol] 200 mg/dL Critically high 74-106 [facility] Comment on above: Performed By: #### P OCGLUC ####[facility] [address] [address]DrVaishali Lerner Covid-19 PCR (CVDTB)on 12-28 SARS-CoV-2 (COVID-19) RNA SUDHA+probe Ql (Unsp spec) Not detected Normal NOT DETECTED [facility] Comment on above: Result Comment: This test is not yet approved or cleared by the [place] FDA. When there are no FDA-approved or cleared tests available, and other criteria are met, FDA can make tests available under an emergency access mechanism called an Emergency Use Authorization (EUA). The EUA for this test is supported by the [place] of Health and Human Service's (HHS's) declaration [...] SARS-CoV-2. Performed By: #### A 1C #### [facility] [address] [place] [address] Dr. Eddie Lerner PROF CHEM 8 (BAS METB)on Anion gap [Moles/Vol] 15.0 mmol/L Normal [facility] Comment on above: Performed By: #### R ENAL, LIPID, LIVER, TSH #### [facility] [address] [address] [address] Eddie Lerner Calcium [Mass/Vol] 9.3 mg/dL Normal 8.5-10.[address] [facility] Comment on above: Performed By: #### R ENAL, LIPID, LIVER, TSH #### [facility] [address] [address] [address] Eddie Lerner Chloride [Moles/Vol] 105 mmol/L Normal 98-[address] [facility] Comment on above: Performed By: #### R ENAL, LIPID, LIVER, TSH #### [facility] [address] [address] [address] Eddie Lerner CO2 [Moles/Vol] 22.1 mmol/L Normal 21.0-32.0 [facility] Comment on above: Performed By: #### R ENAL, LIPID, LIVER, TSH #### [facility] [address] [address] [address] Eddie Lerner Creatinine [Mass/Vol] 2.29 mg/dL Critically high 0.70-1.30 [facility] Comment on above: Performed By: #### R ENAL, LIPID, LIVER, TSH #### [facility] [address] [address] [address] Eddie Lerner EGFR-AF ECUADOREAN 35 mL/min/1.73m2 Critically low >=60 [facility] Comment on above: Performed By: #### R ENAL, LIPID, LIVER, TSH #### [facility] [address] [address] [address] Eddie Lerner EGFR-NON AF ECUADOREAN 29 mL/min/1.73m2 Critically low >=60 [facility] Comment on above: Performed By: #### R ENAL, LIPID, LIVER, TSH #### [facility] [address] [address] [address] Eddie Lerner Glucose [Mass/Vol] 115 mg/dL Critically high 74-106 [facility] Comment on above: Performed By: #### R ENAL, LIPID, LIVER, TSH #### [facility] [address] [address] [address] Eddie Lerner Potassium [Moles/Vol] 5.1 mmol/L Normal 3.5-5.1 [facility] Comment on above: Performed By: #### R ENAL, LIPID, LIVER, TSH #### [facility] [address] [address] [address] Eddie Lerner Sodium [Moles/Vol] 137 mmol/L Normal 136-145 [facility] Comment on above: Performed By: #### R ENAL, LIPID, LIVER, TSH #### [facility] [address] [address] [address] Eddie Lerner Urea nitrogen [Mass/Vol] 26.0 mg/dL Critically high 7.0-18.[address] [facility] Comment on above: Performed By: #### R ENAL, LIPID, LIVER, TSH #### [facility] [address] [address] [address] Eddie Lerner Urea nitrogen/Creatinine [Mass ratio] 11.4 mg/mg Normal [facility] Comment on above: Performed By: #### R ENAL, LIPID, LIVER, TSH #### [facility] [address] [address] [address] Eddie Lerner TISSUE CULTUREon 01-08-2022 Anaerobic Culture, Extended Incubation Final report Normal [facility] Comment on above: Performed By: #### C XTISSU ####[facility] [address] [address] Eddie Lerner Result [address] [facility] Comment on above: Result Comment: Diph theroids, not Corynebacterium jeikeium Light growth Susceptibility not normally performed on this organism. Performed By: #### C XTISSU ####[facility] [address] [address]Dr. Eddie Lerner Result Comment: No a naerobes recovered. Tissue Culture Final report Abnormal [facility] Comment on above: Performed By: #### C XTISSU ####[facility] [address] [address]Dr. Eddie Lerner POINT OF CARE GLUCOSEon 11-28 Glucose [Mass/Vol] 89 mg/dL Normal 74-[address] [facility] Comment on above: Performed By: #### R ENAL, LIPID, LIVER, TSH #### [facility] [address] [address] [address] Eddie Lerner Glucose [Mass/Vol] 85 mg/dL Normal 74-[address] [facility] Comment on above: Performed By: #### P OCGLUC ####[facility] [address] [address]Dr. Eddie Lerner GRAM STAINon 12-21-2021 COMMENTS NO ORGANISMS OBSERVED Normal [facility] Comment on above: Performed By: #### R ENAL, LIPID, LIVER, TSH #### [facility] [address] [address] [address] Eddie Lerner DIPHTHEROIDS Normal [facility] Comment on above: Performed By: #### R ENAL, LIPID, LIVER, TSH #### [facility] [address] [address] [address] Eddie Lerner EPITHELIALS Normal [facility] Comment on above: Performed By: #### R ENAL, LIPID, LIVER, TSH #### [facility] [address] [address] [address] Eddie Lerner FUNGAL ELEMENTS Normal [facility] Comment on above: Performed By: #### R ENAL, LIPID, LIVER, TSH #### [facility] [address] [address] [address] Eddie Lerner GRAM NEG BACILLI Normal [facility] Comment on above: Performed By: #### R ENAL, LIPID, LIVER, TSH #### [facility] [address] [address] [address] Eddie PRINGLE NEG DIPPLOCOCCI Normal [facility] Comment on above: Performed By: #### R ENAL, LIPID, LIVER, TSH #### [facility] [address] [address] [address] Eddie Lerner GRAM POS BACILLI Normal [facility] Comment on above: Performed By: #### R ENAL, LIPID, LIVER, TSH #### [facility] [address] [address] [address] Eddie Lerner GRAM POSITIVE COCCI Normal [facility] Comment on above: Performed By: #### R ENAL, LIPID, LIVER, TSH #### [facility] [address] [address] [address] Eddie Lerner GRAM STAIN SOURCE Lt 1st Metatarsal Bone Normal [facility] Comment on above: Performed By: #### R ENAL, LIPID, LIVER, TSH #### [facility] [address] [address] [address] Eddie Lerner GS_DIPTH Normal [facility] Comment on above: Performed By: #### R ENAL, LIPID, LIVER, TSH #### [facility] [address] [address] [address] Eddie Lerner WBC RARE Normal [facility] Comment on above: Performed By: #### R ENAL, LIPID, LIVER, TSH #### [facility] [address] [address] [address] Eddie Lerner POINT OF CARE GLUCOSEon 11-28 Glucose [Mass/Vol] 148 mg/dL Critically high 74-106 [facility] Comment on above: Performed By: #### A 1C #### [facility] [address] [address] [address] Eddie Lerner Glucose [Mass/Vol] 100 mg/dL Normal 74-106 [facility] Comment on above: Performed By: #### P OCGLUC ####[facility] [id number] [address]Dr. Eddie Lerner Glucose [Mass/Vol] 85 mg/dL Normal 74-106 [facility] Comment on above: Performed By: #### P OCGLUC ####[facility] [address] [address]Dr. Eddie Lerner Glucose [Mass/Vol] 83 mg/dL Normal 74-106 [facility] Comment on above: Performed By: #### R ENAL, LIPID, LIVER, TSH #### [facility] [address] [address] [address] Eddie Ler[facility]28 SARS-CoV-2 (COVID-19) RNA SUDHA+probe Ql (Unsp spec) Not detected Normal NOT DETECTED [facility] Comment on above: Result Comment: This test is not yet approved or cleared by the [place] FDA. When there are no FDA-approved or cleared tests available, and other criteria are met, FDA can make tests available under an emergency access mechanism called an Emergency Use Authorization (EUA). The EUA for this test is supported by the [place] of Health and Human Service's (HHS's) declaration [...] with SARS-CoV-2. Performed By: #### C VDTBH ####[facility] [address] [address]Dr. Eddie Lerner PROF CHEM 8 (BAS METB)on Anion gap [Moles/Vol] 11.5 mmol/L Normal [facility] Comment on above: Performed By: #### R ENAL, LIPID, LIVER, TSH #### [facility] [address] [address] [address] Eddie Lerner Calcium [Mass/Vol] 9.0 mg/dL Normal 8.5-10.[address] [facility] Comment on above: Performed By: #### R ENAL, LIPID, LIVER, TSH #### [facility] [address] [address] [address] Eddie Lerner Chloride [Moles/Vol] 102 mmol/L Normal 98-[address] [facility] Comment on above: Performed By: #### R ENAL, LIPID, LIVER, TSH #### [facility] [address] [address] [address] Eddie Lerner CO2 [Moles/Vol] 24.8 mmol/L Normal 21.0-32.[address] [facility] Comment on above: Performed By: #### R ENAL, LIPID, LIVER, TSH #### [facility] [address] [address] [address] Eddie Lerner Creatinine [Mass/Vol] 2.19 mg/dL Critically high 0.70-1.[address] [facility] Comment on above: Performed By: #### R ENAL, LIPID, LIVER, TSH #### [facility] [address] [address] [address] Eddie Lerner EGFR-AF ECUADOREAN 37 mL/min/1.73m2 Critically low >=[address] [facility] Comment on above: Performed By: #### R ENAL, LIPID, LIVER, TSH #### [facility] [address] [address] [address] Eddie Lerner EGFR-NON AF ECUADOREAN 31 mL/min/1.73m2 Critically low >=60 [facility] Comment on above: Performed By: #### R ENAL, LIPID, LIVER, TSH #### [facility] [address] [address] [address] Eddie Lerner Glucose [Mass/Vol] 330 mg/dL Critically high 74-106 T [facility] Comment on above: Performed By: #### R ENAL, LIPID, LIVER, TSH #### [facility] [address] [address] [address] Eddie Lerner Potassium [Moles/Vol] 5.3 mmol/L Critically high 3.5-5.1 [facility] Comment on above: Performed By: #### R ENAL, LIPID, LIVER, TSH #### [facility] [address] [address] [address] Eddie Lerner Sodium [Moles/Vol] 133 mmol/L Critically low 136-145 [facility] Comment on above: Performed By: #### R ENAL, LIPID, LIVER, TSH #### [facility] [address] [address] [address] Eddie Lerner Urea nitrogen [Mass/Vol] 25.0 mg/dL Critically high 7.0-18.0 [facility] Comment on above: Performed By: #### R ENAL, LIPID, LIVER, TSH #### [facility] [address] [address] [address] Eddie Lerner Urea nitrogen/Creatinine [Mass ratio] 11.4 mg/mg Normal [facility] Comment on above: Performed By: #### R ENAL, LIPID, LIVER, TSH #### [facility] [address] [address] [address] Eddie Lerner Comprehensive Metabolic Pane babatunde 08-01-2021 Albumin [Mass/Vol] 2.8 g/dL Low 3.2-5.5 [facility] Comment on above: Order Comment: REDRA W FOR SHORT DRAW AND HEMOLYSIS Performed By: #### P P #### [address] Albumin/Globulin [Mass ratio] 0.7 {ratio} Normal [facility] Comment on above: Order Comment: REDRA W FOR SHORT DRAW AND HEMOLYSIS Performed By: #### P P #### [address] ALP [Catalytic activity/Vol] 87 U/L Normal 32-92 [facility] Comment on above: Order Comment: REDRA W FOR SHORT DRAW AND HEMOLYSIS Performed By: #### P P #### [address] ALT [Catalytic activity/Vol] 18 U/L Normal 10-60 [facility] Comment on above: Order Comment: REDRA W FOR SHORT DRAW AND HEMOLYSIS Performed By: #### P P #### [address] AST [Catalytic activity/Vol] 20 U/L Normal 10-42 [facility] Comment on above: Order Comment: REDRA W FOR SHORT DRAW AND HEMOLYSIS Performed By: #### P P #### [address] Bilirubin [Mass/Vol] 0.6 mg/dL Normal 0.3-1.2 [facility] Comment on above: Order Comment: REDRA W FOR SHORT DRAW AND HEMOLYSIS Performed By: #### P P #### [place] [address] [place] Calcium [Mass/Vol] 8.9 mg/dL Normal 8.2-10.2 [facility] Comment on above: Order Comment: REDRA W FOR SHORT DRAW AND HEMOLYSIS Performed By: #### P P #### [place] [address] [place] Chloride [Moles/Vol] 103 mmol/L Normal 95-114 [facility] Comment on above: Order Comment: REDRA W FOR SHORT DRAW AND HEMOLYSIS Performed By: #### P P #### [place] [address] [place] CO2 [Moles/Vol] 24.7 mmol/L Normal 22.0-30.0 [facility] Comment on above: Order Comment: REDRA W FOR SHORT DRAW AND HEMOLYSIS Performed By: #### P P #### [id number] [facility] Creatinine [Mass/Vol] 2.34 mg/dL High 0.64-1.27 [facility] Comment on above: Order Comment: REDRA W FOR SHORT DRAW AND HEMOLYSIS Performed By: #### P P #### [address] Estimated GFR ( Camilla 34 [facility] Comment on above: Order Comment: REDRA W FOR SHORT DRAW AND HEMOLYSIS Result Comment: GFR estimated reference range: According to KDOQI guidelines, <60 ml/min/1.73m2 is sufficient to diagnose a patient with chronic kidney disease. Performed By: #### P P #### [address] Estimated GFR (Non- Am 28 [facility] Comment on above: Order Comment: REDRA W FOR SHORT DRAW AND HEMOLYSIS Performed By: #### P P #### [address] Globulin (S) [Mass/Vol] 3.9 g/dL [facility] Comment on above: Order Comment: REDRA W FOR SHORT DRAW AND HEMOLYSIS Performed By: #### P P #### [address] Glucose [Mass/Vol] 171 mg/dL High 70-100 [facility] Comment on above: Order Comment: REDRA W FOR SHORT DRAW AND HEMOLYSIS Result Comment: [place] om Glucose Reference Range is dependent on time and content of last meal. Glucose of more than 200 mg/dL in a nonstressed, ambulatory subject supports the diagnosis of Diabetes Mellitus. ADA recommended reference range Performed By: #### P P #### [address] Potassium [Moles/Vol] 4.0 mmol/L Normal 3.5-5.1 [facility] Comment on above: Order Comment: REDRA W FOR SHORT DRAW AND HEMOLYSIS Performed By: #### P P #### [address] Protein [Mass/Vol] 6.7 g/dL Normal 6.1-7.9 [facility] Comment on above: Order Comment: REDRA W FOR SHORT DRAW AND HEMOLYSIS Performed By: #### P P #### [address] Sodium [Moles/Vol] 138 mmol/L Normal 136-146 [facility] Comment on above: Order Comment: REDRA W FOR SHORT DRAW AND HEMOLYSIS Performed By: #### P P #### [address] Urea nitrogen [Mass/Vol] 18 mg/dL Normal 9-23 [facility] Comment on above: Order Comment: REDRA W FOR SHORT DRAW AND HEMOLYSIS Performed By: #### P P #### [address] Ferritinon 08-01-2021 Ferritin [Mass/Vol] 151.9 ng/mL Normal 23.9-336.2 [facility] Comment on above: Order Comment: Reaso n for Exam CKD (chronic kidney disease) stage 4, GFR 15-29 ml/min;Diabe Performed By: #### C MP, CBC, MG, TROP, BNP #### [address] Hemogram CBC Without Diffon 08-01-2021 Erythrocyte distribution width (RBC) [Ratio] 15.9 % High 12.0-14.8 [facility] Comment on above: Order Comment: REDRA W FOR SHORT DRAW AND HEMOLYSIS Performed By: #### P P #### [address] Hematocrit (Bld) [Volume fraction] 38.9 % Normal 38.8-50.0 [facility] Comment on above: Order Comment: REDRA W FOR SHORT DRAW AND HEMOLYSIS Performed By: #### P P #### [address] Hemoglobin (Bld) [Mass/Vol] 12.9 g/dL Low 13.0-17.0 [facility] Comment on above: Order Comment: REDRA W FOR SHORT DRAW AND HEMOLYSIS Performed By: #### P P #### [address] MCH (RBC) [Entitic mass] 28.4 pg Normal 27.5-35.2 [facility] Comment on above: Order Comment: REDRA W FOR SHORT DRAW AND HEMOLYSIS Performed By: #### P P #### [address] MCV (RBC) [Entitic vol] 85.7 fL Normal 83.5-101 [facility] Comment on above: Order Comment: REDRA W FOR SHORT DRAW AND HEMOLYSIS Performed By: #### P P #### [address] Mean Corpuscular HGB Conc 33.1 g/dL Normal 32.5-35.6 [facility] Comment on above: Order Comment: REDRA W FOR SHORT DRAW AND HEMOLYSIS Performed By: #### P P #### [address] Platelet mean volume (Bld) [Entitic vol] 7.8 fL Normal 6.6-10.1 [facility] Comment on above: Order Comment: REDRA W FOR SHORT DRAW AND HEMOLYSIS Result Comment: PERF ORMED BY: [place] [address] PATHOLOGIST [employer] JORDAN RODRIGUEZ M.D. Performed By: #### P P #### [address] Platelets (Bld) [#/Vol] 352 10*3/uL Normal 150-450 [facility] Comment on above: Order Comment: REDRA W FOR SHORT DRAW AND HEMOLYSIS Performed By: #### P P #### [address] RBC (Bld) [#/Vol] 4.54 10*6/uL Normal 3.90-5.60 [facility] Comment on above: Order Comment: REDRA W FOR SHORT DRAW AND HEMOLYSIS Performed By: #### P P #### [facility] [address] [place] [address] WBC (Bld) [#/Vol] 9.1 10*3/uL Normal 4.1-10.5 [facility] Comment on above: Order Comment: REDRA W FOR SHORT DRAW AND HEMOLYSIS Performed By: #### P P #### [address] Iron and TIBC Profileon % Iron Saturation 24.0 % Normal 20-50 [facility] Comment on above: Order Comment: REDRA W FOR SHORT DRAW AND HEMOLYSIS Performed By: #### P P #### [address] Iron [Mass/Vol] 47 ug/dL Normal 40-160 [facility] Comment on above: Order Comment: REDRA W FOR SHORT DRAW AND HEMOLYSIS Performed By: #### P P #### [address] Total Iron Binding Capacity 192 ug/dL Low 255-450 [facility] Comment on above: Order Comment: REDRA W FOR SHORT DRAW AND HEMOLYSIS Performed By: #### P P #### [facility] [address] [place] [address] Transferrin [Mass/Vol] 137 mg/dL Low 180-380 [facility] Comment on above: Order Comment: REDRA W FOR SHORT DRAW AND HEMOLYSIS Performed By: #### P P #### [address] Magnesiumon 08-01-2021 Magnesium [Mass/Vol] 2.2 mg/dL Normal 1.6-2.6 [facility] Comment on above: Order Comment: REDRA W FOR SHORT DRAW AND HEMOLYSIS Performed By: #### P P #### [address] Parathyroid Hormone Intacton 08-01-2021 Parathyroid Hormone Intact 31.2 pg/mL Normal 12-88 [facility] Comment on above: Order Comment: Reaso n for Exam CKD (chronic kidney disease) stage 4, GFR 15-29 ml/min;Diabe Result Comment: PERF ORMED BY: [place] [address] PATHOLOGIST [employer] JORDAN RODRIGUEZ M.D. Performed By: #### C MP, CBC, MG, TROP, BNP #### [address] Uric Acidon 08-01-2021 Urate [Mass/Vol] 8.4 mg/dL High 2.6-7.2 [facility] Comment on above: Order Comment: REDRA W FOR SHORT DRAW AND HEMOLYSIS Performed By: #### P P #### [address] Vitamin D 25 Hydroxy Totalon 08-01-2021 Vitamin D 25 Hydroxy Total 28.2 ng/mL Low 30-100 [facility] Comment on above: [...] C MP, CBC, MG, TROP, BNP #### [address] Complete Pulmonary Functiono n 09-28-2020 Complete Pulmonary Function [facility] Main [place] [address] [place] [address] Pulmonary Function Signed Patient: Rashard Lyman MR#: [id number] : 1960 Acct:[id number] Age/Sex: 60 / M ADM Date: 09/28/20 Loc: RT Room: Type: [facility] CLI Attending Dr: Latrice Lehman APRN, [facility]- Ordering Provider: Latrice Lehman APRN, [facility] Date of Service: 09/28/20 Accession #: Copies to: MD Latrice Logan APRN, [facility] HISTORY: This is a 60-year-old, 76-inch tall, 333-pound male, reformed smoker, referred by Latrice Lehman [facility], and normally followed by Dr. Garcia with [...] to 2.21 L or 50% predicted. The YRG75-05% is reduced at 1.92 L/sec or 54% predicted. After administration of bronchodilators, there is an insignificant 5% improvement in the forced vital capacity and 5% improvement in the FEV1. The NLR86-87% improves insignificantly by 10%. LUNG VOLUMES: Lung [...] adequate pulmonary function studies reveal evidence of [id number] restriction without clear evidence of obstruction nor [...] comparison. Clinical correlation is recommended. Transcribed By: NTS 09/28/20 1400 Dictated By: Km Robertson MD 09/28/20 1305 Signed By: 09/28/20 1505 Normal [facility] echo limited [facility] echo limited [facility] Main [place] [address] [place] [address] Echocardiogram Signed Patient: Rashard Lyman MR#: [id number] : 1960 Acct:[id number] Age/Sex: 60 / M ADM Date: 09/06/20 Loc: Room: Type: [facility] Attending Dr: Gautam Bazan MD Ordering Provider: Gautam Bazan MD Date of Service: 09/06/20 [facility] echo limited: re assess pericardial effusions Copies to: Nancy Jackson MD, [facility] Gautam Bazan MD Weight: 354 lb [...] ml EF(Teich): 51.3 % Transcribed By: SCV 09/06/20 162 Dictated By: Nancy Jackson MD, [facility] 09/06/20 1232 Signed By: 09/06/20 1626 Normal [facility] Albumin [Mass/volume] in Ser um or Plasmaon 08-25-2020 Albumin [Mass/Vol] 2.0 g/dL 3.2-5.5 [facility] Basophils Auto (Bld) [#/Vol] on 08-25-2020 Basophils (Bld) [#/Vol] 0.0 10*3/uL 0.0-0.2 [facility] Basophils/100 WBC Auto (Bld) on 08-25-2020 Basophils/100 WBC (Bld) 0.1 % [facility] Blood anisocytosis detection on 08-25-2020 Anisocytosis Ql (Bld) Slight [facility] Blood hemoglobin measurement (mass/volume)on 08-25-2020 Hemoglobin (Bld) [Mass/Vol] 10.1 g/dL 13.0-17.0 [facility] Blood leukocytes automated c ount (number/volume)on 08-25-2020 WBC (Bld) [#/Vol] 12.6 10*3/uL 4.5-11.0 [facility] Blood polychromasia detectio n by light microscopyon 08-25-2020 Polychromasia LM Ql (Bld) Slight [facility] Creatinine and Glomerular fi ltration rate.predicted panel (S/P/Bld)on 08-25-2020 Creatinine [Mass/Vol] 4.06 mg/dL 0.64-1.27 [facility] ECG 12 lead ECGon 08-25-2020 ECG 12 lead ECG [facility] [place] [address] Electrocardiograph Report Signed Patient: Rashard Lyman MR#: [id number] : 1960 Acct:[id number] Age/Sex: 60 / M ADM Date: 08/18/20 Loc: Room: [address] [place] [address] Type: ADM IN Attending Dr: Gordon Ewing [...] 08/25/20 0719 Signed By: 08/25/20 0951 Normal [facility] Eosinophils Auto (Bld) [#/Vo l]on 08-25-2020 Eosinophils (Bld) [#/Vol] 0.0 10*3/uL 0.0-0.45 [facility] Eosinophils/100 WBC Auto (Bl d)on 08-25-2020 Eosinophils/100 WBC (Bld) 0.1 % [facility] Erythrocyte distribution wid th Auto (RBC) [Ratio]on 08-25-2020 Erythrocyte distribution width (RBC) [Ratio] 16.6 % 12.0-14.8 [facility] Estimated glomerular filtrat ion rate (GFR) non- Americanon 08-25-2020 GFR/1.73 sq M.predicted among non-blacks MDRD (S/P/Bld) [Vol rate/Area] 15 mL/Min [facility] Glucose Glucometer (dC) [M ass/Vol]on 08-25-2020 Glucose [Mass/Vol] 122 mg/dL [facility] Comment on above: Random Glucose Refer ence Range is dependent on time and content of last meal. Glucose of more than 200 mg/dL in a nonstressed, ambulatory subject supports the diagnosis of Diabetes Mellitus. Glucose Poct Glucometerson 0 08-25-2020 Commemt1 Glu2: Cleaned Meter [facility] Comment on above: Result Comment: PERF ORMED BY: [place] [address] PATHOLOGIST [employer] JORDAN RODRIGUEZ M.D. Performed By: #### P P #### [address] Glucose [Mass/Vol] 122 mg/dL Normal [facility] Comment on above: Result Comment: [place] Glucose Reference Range is dependent on time and content of last meal. Glucose of more than 200 mg/dL in a nonstressed, ambulatory subject supports the diagnosis of Diabetes Mellitus. Performed By: #### P P #### [address] Commemt1 Glu2: Cleaned Meter [facility] Comment on above: Result Comment: PERF ORMED BY: [place] [address] PATHOLOGIST [employer] JORDAN RODRIGUEZ M.D. Performed By: #### V BG #### Point of Care testing , Glucose [Mass/Vol] 104 mg/dL Normal [facility] Comment on above: Result Comment: [place] om Glucose Reference Range is dependent on time and content of last meal. Glucose of more than 200 mg/dL in a nonstressed, ambulatory subject supports the diagnosis of Diabetes Mellitus. Performed By: #### V BG #### Point of Care testing , Glucose [Mass/Vol] 115 mg/dL Normal [facility] Comment on above: Result Comment: [place] om Glucose Reference Range is dependent on time and content of last meal. Glucose of more than 200 mg/dL in a nonstressed, ambulatory subject supports the diagnosis of Diabetes Mellitus. PERFORMED BY: [facility] [place] [address] PATHOLOGIST [employer] JORDAN RODRIGUEZ M.D. Performed By: #### V BG #### Point of Care testing , Hematocrit Auto (Bld) [Volum e fraction]on 08-25-2020 Hematocrit (Bld) [Volume fraction] 31.7 % 38.8-50.0 [facility] Laboratory - Hematology and Cell countson 08-25-2020 Nucleated RBC/100 WBC (Bld) [Ratio] 0.2 % 0-0.5 [facility] Lymphocytes Auto (Bld) [#/Vo l]on 08-25-2020 Lymphocytes (Bld) [#/Vol] 1.1 10*3/uL 1.00-4.8 [facility] Lymphocytes/100 WBC Auto (Bl d)on 08-25-2020 Lymphocytes/100 WBC (Bld) 8.9 % [facility] MCH Auto (RBC) [Entitic mass ]on 08-25-2020 MCH (RBC) [Entitic mass] 26.2 pg 27.5-35.2 [facility] MCHC Auto (RBC) [Mass/Vol]on 08-25-2020 MCHC (RBC) [Mass/Vol] 31.9 g/dL 32.5-35.6 [facility] MCV Auto (RBC) [Entitic vol] on 08-25-2020 MCV (RBC) [Entitic vol] 82.3 fL 83.5-101 [facility] Monocytes Auto (Bld) [#/Vol] on 08-25-2020 Monocytes (Bld) [#/Vol] 1.2 10*3/uL 0.0-0.8 [facility] Monocytes/100 WBC Auto (Bld) on 08-25-2020 Monocytes/100 WBC (Bld) 9.6 % [facility] Neutrophils Auto (Bld) [#/Vo l]on 08-25-2020 Neutrophils (Bld) [#/Vol] 10.2 10*3/uL 1.8-7.7 [facility] Neutrophils/100 WBC Auto (Bl d)on 08-25-2020 Neutrophils/100 WBC (Bld) 81.3 % [facility] No Panel Informationon 08-25 Bedside Glucose Comment Glu2: cleaned meter [facility] Estimated GFR () 18 mL/Min [facility] Comment on above: GFR estimated refere nce range: According to KDOQI guidelines, <60 ml/min/1.73m2 is sufficient to diagnose a patient with chronic kidney disease. Pharmacy Creatinine Clearance (Chem 31.84 [facility] Platelet Estimate Normal Normal [facility] Platelet Morphology Comment Normal Normal [facility] Phosphate [Mass/volume] in S miki or Plasmaon 08-25-2020 Phosphate [Mass/Vol] 5.3 mg/dL 2.5-4.6 [facility] Platelet mean volume Auto (B ld) [Entitic vol]on 08-25-2020 Platelet mean volume (Bld) [Entitic vol] 7.1 fL 6.6-10.1 [facility] Platelets Auto (Bld) [#/Vol] on 08-25-2020 Platelets (Bld) [#/Vol] 388 10*3/uL 150-450 [facility] RBC Auto (Bld) [#/Vol]on RBC (Bld) [#/Vol] 3.85 10*6/uL 3.90-5.60 [facility] RBC morphologyon 08-25-2020 RBC morphology finding Nom (Bld) N/A [facility] Renal Function Panelon 08-25 Albumin [Mass/Vol] 2.0 g/dL Low 3.2-5.5 [facility] Comment on above: Performed By: #### V BG #### Point of Care testing , Calcium [Mass/Vol] 8.7 mg/dL Normal 8.2-10.2 [facility] Comment on above: Performed By: #### V BG #### Point of Care testing , Chloride [Moles/Vol] 99 mmol/L Normal 95-114 [facility] Comment on above: Performed By: #### V BG #### Point of Care testing , CO2 [Moles/Vol] 26.2 mmol/L Normal 22.0-30.0 [facility] Comment on above: Performed By: #### V BG #### Point of Care testing , Creatinine [Mass/Vol] 4.06 mg/dL High 0.64-1.27 [facility] Comment on above: Performed By: #### V BG #### Point of Care testing , Creatinine Clr Calc Pharmacy 31.84 [facility] Comment on above: Result Comment: PERF ORMED BY: [facility] [address] [address] PATHOLOGIST [employer] JORDAN RODRIGUEZ M.D. Performed By: #### V BG #### Point of Care testing , Estimated GFR ( Camilla 18 [facility] Comment on above: Result Comment: GFR estimated reference range: According to KDOQI guidelines, <60 ml/min/1.73m2 is sufficient to diagnose a patient with chronic kidney disease. Performed By: #### V BG #### Point of Care testing , Estimated GFR (Non- Am 15 [facility] Comment on above: Performed By: #### V BG #### Point of Care testing , Glucose [Mass/Vol] 113 mg/dL High 70-100 [facility] Comment on above: Result Comment: [place] om Glucose Reference Range is dependent on time and content of last meal. Glucose of more than 200 mg/dL in a nonstressed, ambulatory subject supports the diagnosis of Diabetes Mellitus. ADA recommended reference range Performed By: #### V BG #### Point of Care testing , Phosphate [Mass/Vol] 5.3 mg/dL High 2.5-4.6 [facility] Comment on above: Performed By: #### V BG #### Point of Care testing , Potassium [Moles/Vol] 4.6 mmol/L Normal 3.5-5.1 [facility] Comment on above: Performed By: #### V BG #### Point of Care testing , Sodium [Moles/Vol] 135 mmol/L Low 136-146 [facility] Comment on above: Performed By: #### V BG #### Point of Care testing , Urea nitrogen [Mass/Vol] 75 mg/dL High 9-23 [facility] Comment on above: Performed By: #### V BG #### Point of Care testing , Scan and CBCon 08-25-2020 Anisocytosis Ql (Bld) Slight Normal [facility] Comment on above: Performed By: #### V BG #### Point of Care testing , Basophils (Bld) [#/Vol] 0.0 10*3/uL Normal 0.0-0.2 [facility] Comment on above: Performed By: #### V BG #### Point of Care testing , Basophils/100 WBC (Bld) 0.1 % Normal . [facility] Comment on above: Performed By: #### V BG #### Point of Care testing , Eosinophils (Bld) [#/Vol] 0.0 10*3/uL Normal 0.0-0.45 [facility] Comment on above: Performed By: #### V BG #### Point of Care testing , Eosinophils/100 WBC (Bld) 0.1 % Normal . [facility] Comment on above: Performed By: #### V BG #### Point of Care testing , Erythrocyte distribution width (RBC) [Ratio] 16.6 % High 12.0-14.8 [facility] Comment on above: Performed By: #### V BG #### Point of Care testing , Hematocrit (Bld) [Volume fraction] 31.7 % Low 38.8-50.0 [facility] Comment on above: Performed By: #### V BG #### Point of Care testing , Hemoglobin (Bld) [Mass/Vol] 10.1 g/dL Low 13.0-17.0 [facility] Comment on above: Performed By: #### V BG #### Point of Care testing , Lymphocytes (Bld) [#/Vol] 1.1 10*3/uL Normal 1.00-4.8 [facility] Comment on above: Performed By: #### V BG #### Point of Care testing , Lymphocytes/100 WBC (Bld) 8.9 % Normal . [facility] Comment on above: Performed By: #### V BG #### Point of Care testing , MCH (RBC) [Entitic mass] 26.2 pg Low 27.5-35.2 [facility] Comment on above: Performed By: #### V BG #### Point of Care testing , MCV (RBC) [Entitic vol] 82.3 fL Low 83.5-101 [facility] Comment on above: Performed By: #### V BG #### Point of Care testing , Mean Corpuscular HGB Conc 31.9 g/dL Low 32.5-35.6 [facility] Comment on above: Performed By: #### V BG #### Point of Care testing , Monocytes (Bld) [#/Vol] 1.2 10*3/uL High 0.0-0.8 [facility] Comment on above: Performed By: #### V BG #### Point of Care testing , Monocytes/100 WBC (Bld) 9.6 % Normal . [facility] Comment on above: Performed By: #### V BG #### Point of Care testing , Neutrophils (Bld) [#/Vol] 10.2 10*3/uL High 1.8-7.7 [facility] Comment on above: Performed By: #### V BG #### Point of Care testing , Neutrophils/100 WBC (Bld) 81.3 % Normal . [facility] Comment on above: Performed By: #### V BG #### Point of Care testing , Nucleated RBC/100 WBC (Bld) [Ratio] 0.2 % Normal 0-0.5 [facility] Comment on above: Performed By: #### V BG #### Point of Care testing , Platelet Estimate Normal Normal Normal [facility] Comment on above: Performed By: #### V BG #### Point of Care testing , Platelet mean volume (Bld) [Entitic vol] 7.1 fL Normal 6.6-10.1 [facility] Comment on above: Performed By: #### V BG #### Point of Care testing , Platelet Morphology Normal Normal Normal [facility] Comment on above: Result Comment: PERF ORMED BY: [facility] [place] [address] PATHOLOGIST [employer] JORDAN RODRIGUEZ M.D. Performed By: #### V BG #### Point of Care testing , Platelets (Bld) [#/Vol] 388 10*3/uL Normal 150-450 [facility] Comment on above: Performed By: #### V BG #### Point of Care testing , Polychromasia Slight Normal [facility] Comment on above: Performed By: #### V BG #### Point of Care testing , RBC (Bld) [#/Vol] 3.85 10*6/uL Low 3.90-5.60 [facility] Comment on above: Performed By: #### V BG #### Point of Care testing , WBC (Bld) [#/Vol] 12.6 10*3/uL High 4.5-11.0 [facility] Comment on above: Performed By: #### V BG #### Point of Care testing , Serum or plasma calcium joel urement (mass/volume)on 08-25-2020 Calcium [Mass/Vol] 8.7 mg/dL 8.2-10.2 [facility] Serum or plasma chloride faraz surement (moles/volume)on 08-25-2020 Chloride [Moles/Vol] 99 mmol/L 95-114 [facility] Serum or plasma glucose joel urement (mass/volume)on 08-25-2020 Glucose [Mass/Vol] 113 mg/dL 70-100 [facility] Comment on above: ADA recommended refe rence rangeRandom Glucose Reference Range is dependent on time and content of last meal. Glucose of more than 200 mg/dL in a nonstressed, ambulatory subject supports the diagnosis of Diabetes Mellitus. Serum or plasma potassium me asurement (moles/volume)on 08-25-2020 Potassium [Moles/Vol] 4.6 mmol/L 3.5-5.1 [facility] Serum or plasma sodium measu rement (moles/volume)on 08-25-2020 Sodium [Moles/Vol] 135 mmol/L 136-146 [facility] Serum or plasma total carbon dioxide measurement (moles/volume)on 08-25-2020 CO2 [Moles/Vol] 26.2 mmol/L 22.0-30.0 [facility] Serum or plasma urea nitroge n measurement (mass/volume)on 08-25-2020 Urea nitrogen [Mass/Vol] 75 mg/dL 9- [facility] Diff and CBCon 08-24-2020 Anisocytosis Ql (Bld) Slight Normal [facility] Comment on above: Performed By: #### C OVID-19 LIAT, SOFIANEG #### [address] Band form neutrophils/100 WBC (Bld) 1 % Normal 0-5 [facility] Comment on above: Performed By: #### C OVID-19 LIAT, SOFIANEG #### [place] [address] [place] Basophilic stippling LM Ql (Bld) Slight Normal [facility] Comment on above: Performed By: #### C OVID-19 LIAT, SOFIANEG #### [address] Erythrocyte distribution width (RBC) [Ratio] 16.6 % High 12.0-14.8 [facility] Comment on above: Performed By: #### C OVID-19 LIAT, SOFIANEG #### [address] [place] [address] [place] Hematocrit (Bld) [Volume fraction] 30.0 % Low 38.8-50.0 [facility] Comment on above: Performed By: #### C OVID-19 LIAT, SOFIANEG #### [facility] [address] Hemoglobin (Bld) [Mass/Vol] 10.1 g/dL Low 13.0-17.0 [facility] Comment on above: Performed By: #### C OVID-19 LIAT, SOFIANEG #### [facility] [address] [place] [address] Lymphocytes/100 WBC (Bld) 6 % Low 18-42 [facility] Comment on above: Performed By: #### C OVID-19 LIAT, SOFIANEG #### [facility] [address] [place] [address] MCH (RBC) [Entitic mass] 27.5 pg Normal 27.5-35.2 [facility] Comment on above: Performed By: #### C OVID-19 LIAT, SOFIANEG #### [facility] [address] [place] [address] MCV (RBC) [Entitic vol] 81.9 fL Low 83.5-101 [facility] Comment on above: Performed By: #### C OVID-19 LIAT, SOFIANEG #### [facility] [address] [place] [address] Mean Corpuscular HGB Conc 33.6 g/dL Normal 32.5-35.6 [facility] Comment on above: Performed By: #### C OVID-19 LIAT, SOFIANEG #### [facility] [address] [place] [address] [place] Metamyelocytes 1 % High 0-0 [facility] Comment on above: Performed By: #### C OVID-19 LIAT, SOFIANEG #### [facility] [address] [place] [address] [place] Monocytes/100 WBC (Bld) 4 % Normal 2-11 [facility] Comment on above: Performed By: #### C OVID-19 LIAT, SOFIANEG #### [facility] [address] [place] [address] Myelocytes 1 % High 0-0 [facility] Comment on above: Performed By: #### C OVID-19 LIAT, SOFIANEG #### [address] Nucleated RBC/100 WBC (Bld) [Ratio] 0.0 % Normal 0-0.5 [facility] Comment on above: Result Comment: PERF ORMED BY: [place] [address] PATHOLOGIST [employer]ICER JORDAN RODRIGUEZ M.D. Performed By: #### C OVID-19 LIAT, SOFIANEG #### [address] Platelet Estimate Normal Normal Normal [facility] Comment on above: Performed By: #### C OVID-19 LIAT, SOFIANEG #### [address] Platelet mean volume (Bld) [Entitic vol] 7.0 fL Normal 6.6-10.1 [facility] Comment on above: Performed By: #### C OVID-19 LIAT, SOFIANEG #### [address] Platelet Morphology Normal Normal Normal [facility] Comment on above: Result Comment: PERF ORMED BY: [place] [address] PATHOLOGIST [employer] OFFICER JORDAN RODRIGUEZ M.D. Performed By: #### C OVID-19 LIAT, SOFIANEG #### [facility] [address] [place] [address] [place] Platelets (Bld) [#/Vol] 359 10*3/uL Normal 150-450 [facility] Comment on above: Performed By: #### C OVID-19 LIAT, SOFIANEG #### [facility] [address] [place] [address] Polychromasia Slight Normal [facility] Comment on above: Performed By: #### C OVID-19 LIAT, SOFIANEG #### [facility] [address] RBC (Bld) [#/Vol] 3.66 10*6/uL Low 3.90-5.60 [facility] Comment on above: Performed By: #### C OVID-19 LIAT, SOFIANEG #### [facility] [address] [place] [address] [place] Rouleaux Slight Normal [facility] Comment on above: Performed By: #### C OVID-19 LIAT, SOFIANEG #### [facility] [address] [place] [address] Segmented neutrophils/100 WBC (Bld) 87 % High 50-70 [facility] Comment on above: Performed By: #### C OVID-19 LIAT, SOFIANEG #### [facility] [address] [place] [address] WBC (Bld) [#/Vol] 11.2 10*3/uL High 4.5-11.0 [facility] Comment on above: Performed By: #### C OVID-19 LIAT, SOFIANEG #### [facility] [address] [place] [address] ECG 12 lead ECGon 08-24-2020 ECG 12 lead ECG [facility] Main [place] [address] [place] [address] Electrocardiograph Report Signed Patient: Rashard Lyman MR#: [id number] : 1960 Acct:[id number] Age/Sex: 60 / M ADM Date: 08/18/20 Loc: Room: [address] [place] [address] Type: ADM IN Attending Dr: Gordon Ewing [...] BAZAN MD Transcribed By: MUS Dictated By: Gautma Bazan MD 08/24/20 0743 Signed By: 08/24/20 1049 Normal [facility] Erythrocyte basophilic stipp ling detectionon 08-24-2020 Basophilic stippling LM Ql (Bld) Slight [facility] Glucose Poct Glucometerson 0 08-24-2020 Glucose [Mass/Vol] 129 mg/dL Normal [facility] Comment on above: Result Comment: [facility] Glucose Reference Range is dependent on time and content of last meal. Glucose of more than 200 mg/dL in a nonstressed, ambulatory subject supports the diagnosis of Diabetes Mellitus. PERFORMED BY: [address] [place] [address] PATHOLOGIST [employer]ICER JORDAN RODRIGUEZ M.D. Performed By: #### V BG #### Point of Care testing , Commemt1 Glu2: Cleaned Meter Normal [facility] Comment on above: Result Comment: PERF ORMED BY: [facility] [address] [place] [address] PATHOLOGIST [employer] OFFICER JORDAN RODRIGUEZ M.D. Performed By: #### V BG #### Point of Care testing , Glucose [Mass/Vol] 108 mg/dL Normal [facility] Comment on above: Result Comment: [facility] Glucose Reference Range is dependent on time and content of last meal. Glucose of more than 200 mg/dL in a nonstressed, ambulatory subject supports the diagnosis of Diabetes Mellitus. Performed By: #### V BG #### Point of Care testing , Glucose [Mass/Vol] 60 mg/dL Off scale low [facility] Comment on above: Result Comment: [facility] Glucose Reference Range is dependent on time and content of last meal. Glucose of more than 200 mg/dL in a nonstressed, ambulatory subject supports the diagnosis of Diabetes Mellitus. PERFORMED BY: [place] [id number] PATHOLOGIST [employer] OFFICER JORDAN RODRIGUEZ M.D. Performed By: #### V BG #### Point of Care testing , Glucose [Mass/Vol] 130 mg/dL Normal [facility] Comment on above: Result Comment: [facility] Glucose Reference Range is dependent on time and content of last meal. Glucose of more than 200 mg/dL in a nonstressed, ambulatory subject supports the diagnosis of Diabetes Mellitus. PERFORMED BY: [place] [id number] PATHOLOGIST [employer] OFFICER JORDAN RODRIGUEZ M.D. Performed By: #### V BG #### Point of Care testing , Glucose [Mass/Vol] 72 mg/dL Normal [facility] Comment on above: Result Comment: [facility] Glucose Reference Range is dependent on time and content of last meal. Glucose of more than 200 mg/dL in a nonstressed, ambulatory subject supports the diagnosis of Diabetes Mellitus. PERFORMED BY: [place] [address] PATHOLOGIST [employer] OFFICER JORDAN RODRIGUEZ M.D. Performed By: #### C OVID-19 LIAT, SOFIANEG #### [address] Glucose [Mass/Vol] 96 mg/dL Normal [facility] Comment on above: Result Comment: [place] Glucose Reference Range is dependent on time and content of last meal. Glucose of more than 200 mg/dL in a nonstressed, ambulatory subject supports the diagnosis of Diabetes Mellitus. PERFORMED BY: [place] [id number] PATHOLOGIST [employer] OFFICER JORDAN RODRIGUEZ M.D. Performed By: #### C OVID-19 LIAT, SOFIANEG #### [place] [id number] [facility] Laboratory - Hematology and Cell countson 08-24-2020 Band form neutrophils/100 WBC (Bld) 1 % 0-5 [facility] Lymphocytes/100 WBC Auto (Bl d)on 08-24-2020 Lymphocytes/100 WBC (Bld) 6 % 18-42 [facility] Metamyelocytes/100 WBC Manua l cnt (Bld)on 08-24-2020 Metamyelocytes/100 WBC (Bld) 1 % 0-0 [facility] Monocytes/100 WBC Manual cnt (Bld)on 08-24-2020 Monocytes/100 WBC (Bld) 4 % 2-11 [facility] Myelocytes/100 WBC Manual cn t (Bld)on 08-24-2020 Myelocytes/100 WBC (Bld) 1 % 0-0 [facility] No Panel Informationon 08-24 Rouleau Slight [facility] Renal Function Panelon 08-24 Albumin [Mass/Vol] 1.9 g/dL Low 3.2-5.5 [facility] Comment on above: Performed By: #### C OVID-19 LIAT, SOFIANEG #### [facility] [address] [place] [address] [place] Calcium [Mass/Vol] 8.8 mg/dL Normal 8.2-10.2 [facility] Comment on above: Performed By: #### C OVID-19 LIAT, SOFIANEG #### [facility] [address] [place] [address] [place] Chloride [Moles/Vol] 99 mmol/L Normal 95-114 [facility] Comment on above: Performed By: #### C OVID-19 LIAT, SOFIANEG #### [facility] [address] [place] [address] [place] CO2 [Moles/Vol] 24.4 mmol/L Normal 22.0-30.0 [facility] Comment on above: Performed By: #### C OVID-19 LIAT, SOFIANEG #### [facility] [address] [place] [id number] [place] Creatinine [Mass/Vol] 4.21 mg/dL High 0.64-1.27 [facility] Comment on above: Performed By: #### C OVID-19 LIAT, SOFIANEG #### [facility] [address] [place] [address] [place] Creatinine Clr Calc Pharmacy 30.71 [facility] Comment on above: Result Comment: PERF ORMED BY: [facility] [address] [place] [address] PATHOLOGIST [employer] OFFICER JORDAN RODRIGUEZ M.D. Performed By: #### C OVID-19 LIAT, SOFIANEG #### [facility] [address] Estimated GFR ( Camilla 18 [facility] Comment on above: Result Comment: GFR estimated reference range: According to KDOQI guidelines, <60 ml/min/1.73m2 is sufficient to diagnose a patient with chronic kidney disease. Performed By: #### C OVID-19 LIAT, SOFIANEG #### [facility] [address] [place] [address] [place] Estimated GFR (Non- Am 15 [facility] Comment on above: Performed By: #### C OVID-19 LIAT, SOFIANEG #### [facility] [address] [place] [address] Glucose [Mass/Vol] 79 mg/dL Normal 70-100 [facility] Comment on above: Result Comment: [place] Glucose Reference Range is dependent on time and content of last meal. Glucose of more than 200 mg/dL in a nonstressed, ambulatory subject supports the diagnosis of Diabetes Mellitus. ADA recommended reference range Performed By: #### C OVID-19 LIAT, SOFIANEG #### [facility] [address] [place] [address] Phosphate [Mass/Vol] 5.9 mg/dL High 2.5-4.6 [facility] Comment on above: Performed By: #### C OVID-19 LIAT, SOFIANEG #### [facility] [address] [place] [id number] [place] Potassium [Moles/Vol] 4.2 mmol/L Normal 3.5-5.1 [facility] Comment on above: Performed By: #### C OVID-19 LIAT, SOFIANEG #### [facility] [address] Sodium [Moles/Vol] 134 mmol/L Low 136-146 [facility] Comment on above: Performed By: #### C OVID-19 LIAT, SOFIANEG #### [facility] [address] Urea nitrogen [Mass/Vol] 69 mg/dL High 9-23 [facility] Comment on above: Performed By: #### C OVID-19 LIAT, SOFIANEG #### [place] [address] [place] Segmented neutrophils/100 WB C Manual cnt (Bld)on 08-24-2020 Segmented neutrophils/100 WBC (Bld) 87 % 50-70 [facility] KILLIAN Antinuclear Antibodieson 08-23-2020 Antinuclear Abs, IFA Negative Normal . [facility] Comment on above: Result Comment: Nega tive <1:80 Borderline 1:80 Positive >1:80 Performed at: - [place] [place] [id number] [employer]ishing [employer] Marker: Mata Brian PhD, Phone: [phone] PERFORMED BY: [place] [address] PATHOLOGIST [employer] OFFICER JORDAN RODRIGUEZ M.D. Performed By: #### P P #### [address] Complete Blood Count Auto Di ffon 08-23-2020 Basophils (Bld) [#/Vol] 0.0 10*3/uL Normal 0.0-0.2 [facility] Comment on above: Result Comment: PERF ORMED BY: [place] [address] PATHOLOGIST [employer] OFFICER JORDAN RODRIGUEZ M.D. Performed By: #### C OVID-19 LIAT, SOFIANEG #### [place] [address] [place] Basophils/100 WBC (Bld) 0.3 % Normal . [facility] Comment on above: Performed By: #### C OVID-19 LIAT, SOFIANEG #### [address] Eosinophils (Bld) [#/Vol] 0.0 10*3/uL Normal 0.0-0.45 [facility] Comment on above: Performed By: #### C OVID-19 LIAT, SOFIANEG #### [address] Eosinophils/100 WBC (Bld) 0.1 % Normal . [facility] Comment on above: Performed By: #### C OVID-19 LIAT, SOFIANEG #### [address] Erythrocyte distribution width (RBC) [Ratio] 16.3 % High 12.0-14.8 [facility] Comment on above: Performed By: #### C OVID-19 LIAT, SOFIANEG #### [address] Hematocrit (Bld) [Volume fraction] 29.4 % Low 38.8-50.0 [facility] Comment on above: Performed By: #### C OVID-19 LIAT, SOFIANEG #### [address] Hemoglobin (Bld) [Mass/Vol] 9.4 g/dL Low 13.0-17.0 [facility] Comment on above: Performed By: #### C OVID-19 LIAT, SOFIANEG #### [address] Lymphocytes (Bld) [#/Vol] 0.5 10*3/uL Low 1.00-4.8 [facility] Comment on above: Performed By: #### C OVID-19 LIAT, SOFIANEG #### [address] Lymphocytes/100 WBC (Bld) 4.1 % Normal . [facility] Comment on above: Performed By: #### C OVID-19 LIAT, SOFIANEG #### [address] [place] [address] [place] MCH (RBC) [Entitic mass] 26.2 pg Low 27.5-35.2 [facility] Comment on above: Performed By: #### C OVID-19 LIAT, SOFIANEG #### [facility] [address] MCV (RBC) [Entitic vol] 82.4 fL Low 83.5-101 [facility] Comment on above: Performed By: #### C OVID-19 LIAT, SOFIANEG #### [address] Mean Corpuscular HGB Conc 31.8 g/dL Low 32.5-35.6 [facility] Comment on above: Performed By: #### C OVID-19 LIAT, SOFIANEG #### [address] Monocytes (Bld) [#/Vol] 0.6 10*3/uL Normal 0.0-0.8 [facility] Comment on above: Performed By: #### C OVID-19 LIAT, SOFIANEG #### [address] Monocytes/100 WBC (Bld) 4.9 % Normal . [facility] Comment on above: Performed By: #### C OVID-19 LIAT, SOFIANEG #### [facility] [address] [place] [address] [place] Neutrophils (Bld) [#/Vol] 11.2 10*3/uL High 1.8-7.7 [facility] Comment on above: Performed By: #### C OVID-19 LIAT, SOFIANEG #### [facility] [address] [place] [address] [place] Neutrophils/100 WBC (Bld) 90.6 % Normal . [facility] Comment on above: Performed By: #### C OVID-19 LIAT, SOFIANEG #### [facility] [address] [place] [address] [place] Nucleated RBC/100 WBC (Bld) [Ratio] 0.2 % Normal 0-0.5 [facility] Comment on above: Performed By: #### C OVID-19 LIAT SOFIANEG #### [facility] [address] [place] [address] Platelet mean volume (Bld) [Entitic vol] 8.0 fL Normal 6.6-10.1 [facility] Comment on above: Performed By: #### C OVID-19 LIAT, SOFIANEG #### [address] Platelets (Bld) [#/Vol] 303 10*3/uL Normal 150-450 [facility] Comment on above: Performed By: #### C OVID-19 LIAT SOFIANEG #### [address] RBC (Bld) [#/Vol] 3.57 10*6/uL Low 3.90-5.60 [facility] Comment on above: Performed By: #### C OVID-19 LIAT SOFIANEG #### [address] WBC (Bld) [#/Vol] 12.4 10*3/uL High 4.5-11.0 [facility] Comment on above: Performed By: #### C OVID-19 LIAT SOFIANEG #### [address] ECG 12 lead ECGon 08-23-2020 ECG 12 lead ECG [facility] Main [place] [address] [place] [address] Electrocardiograph Report Signed Patient: Rashard Lyman MR#: [id number] : 1960 Acct:[id number] Age/Sex: 60 / M ADM Date: 08/18/20 Loc: Room: [address] [place] [address] Type: ADM IN Attending Dr: Gordon Ewing [...] 08/23/20 0730 Signed By: 08/23/20 1047 Normal [facility] Glucose Poct Glucometerson 0 08-23-2020 Glucose [Mass/Vol] 160 mg/dL Normal [facility] Comment on above: Result Comment: [facility] Glucose Reference Range is dependent on time and content of last meal. Glucose of more than 200 mg/dL in a nonstressed, ambulatory subject supports the diagnosis of Diabetes Mellitus. PERFORMED BY: [place] [address] PATHOLOGIST [employer] OFFICER JORDAN RODRIGUEZ M.D. Performed By: #### C OVID-19 LIAT, SOFIANEG #### [facility] [address] [place] [address] [facility] Glucose [Mass/Vol] 212 mg/dL Normal [facility] Comment on above: Result Comment: [facility] Glucose Reference Range is dependent on time and content of last meal. Glucose of more than 200 mg/dL in a nonstressed, ambulatory subject supports the diagnosis of Diabetes Mellitus. PERFORMED BY: [place] [id number] PATHOLOGIST [employer] OFFICER JORDAN RODRIGUEZ M.D. Performed By: #### C OVID-19 LIAT, SOFIANEG #### [facility] [address] [place] [address] [facility] Glucose [Mass/Vol] 159 mg/dL Normal [facility] Comment on above: Result Comment: [place] om Glucose Reference Range is dependent on time and content of last meal. Glucose of more than 200 mg/dL in a nonstressed, ambulatory subject supports the diagnosis of Diabetes Mellitus. PERFORMED BY: [place] [address] PATHOLOGIST [employer] OFFICER JORDAN RODRIGUEZ M.D. Performed By: #### C OVID-19 LIAT, SOFIANEG #### [facility] [address] [place] [address] Glucose [Mass/Vol] 73 mg/dL Normal [facility] Comment on above: Result Comment: [place] om Glucose Reference Range is dependent on time and content of last meal. Glucose of more than 200 mg/dL in a nonstressed, ambulatory subject supports the diagnosis of Diabetes Mellitus. PERFORMED BY: [place] [address] PATHOLOGIST [employer] OFFICER JORDAN RODRIGUEZ M.D. Performed By: #### C OVID-19 LIAT, SOFIANEG #### [facility] [address] [place] [address] [place] Commemt1 Glu2: Cleaned Meter Normal [facility] Comment on above: Result Comment: PERF ORMED BY: [place] [address] PATHOLOGIST [employer] OFFICER JORDAN RODRIGUEZ M.D. Performed By: #### C OVID-19 LIAT, SOFIANEG #### [facility] [address] [place] [address] Glucose [Mass/Vol] 88 mg/dL Normal [facility] Comment on above: Result Comment: [place] om Glucose Reference Range is dependent on time and content of last meal. Glucose of more than 200 mg/dL in a nonstressed, ambulatory subject supports the diagnosis of Diabetes Mellitus. Performed By: #### C OVID-19 LIAT, SOFIANEG #### [facility] [address] [place], [place] [id number] [place] Commemt1 Glu2: Cleaned Meter Normal [facility] Comment on above: Result Comment: PERF ORMED BY: [place] [address] PATHOLOGIST [employer] OFFICER JORDAN RODRIGUEZ M.D. Performed By: #### C OVID-19 LIAT, SOFIANEG #### [address] Glucose [Mass/Vol] 69 mg/dL [facility] Comment on above: Result Comment: [place] om Glucose Reference Range is dependent on time and content of last meal. Glucose of more than 200 mg/dL in a nonstressed, ambulatory subject supports the diagnosis of Diabetes Mellitus. Performed By: #### C OVID-19 LIAT, SOFIANEG #### [address] Commemt1 [facility] Comment on above: Result Comment: Glu2 : Will Repeat Test Performed By: #### C OVID-19 LIAT, SOFIANEG #### [facility] [address] [place] [address] Commemt[address] WILL NOT[address] DR/RN [facility] Comment on above: Performed By: #### C OVID-19 LIAT, SOFIANEG #### [facility] [address] [place] [address] Commemt3 Cleaned Meter [facility] Comment on above: Result Comment: PERF ORMED BY: [place] [address] PATHOLOGIST [employer] OFFICER JORDAN RODRIGUEZ M.D. Performed By: #### C OVID-19 LIAT, SOFIANEG #### [address] Glucose [Mass/Vol] 59 mg/dL Off scale low [facility] Comment on above: Result Comment: [place] om Glucose Reference Range is dependent on time and content of last meal. Glucose of more than 200 mg/dL in a nonstressed, ambulatory subject supports the diagnosis of Diabetes Mellitus. Performed By: #### C OVID-19 LIAT, SOFIANEG #### [facility] [address] [place] [address] No Panel Informationon 08-23 Bedside Glucose #[address]/rn [facility] Bedside Glucose #3 Comment Cleaned meter [facility] Renal Function Panelon 08-23 Albumin [Mass/Vol] 1.9 g/dL Low 3.2-5.5 [facility] Comment on above: Performed By: #### C OVID-19 LIAT, SOFIANEG #### [facility] [address] Calcium [Mass/Vol] 8.7 mg/dL Normal 8.2-10.2 [facility] Comment on above: Performed By: #### C OVID-19 LIAT, SOFIANEG #### [facility] [address] Chloride [Moles/Vol] 95 mmol/L Normal 95-114 [facility] Comment on above: Performed By: #### C OVID-19 LIAT, SOFIANEG #### [facility] [address] CO2 [Moles/Vol] 22.0 mmol/L Normal 22.0-30.0 [facility] Comment on above: Performed By: #### C OVID-19 LIAT, SOFIANEG #### [facility] [address] Creatinine [Mass/Vol] 4.79 mg/dL High 0.64-1.27 [facility] Comment on above: Performed By: #### C OVID-19 LIAT, SOFIANEG #### [facility] [address] [place] [address] [place] Creatinine Clr Calc Pharmacy 27.33 [facility] Comment on above: Result Comment: PERF ORMED BY: [place] [address] PATHOLOGIST [employer] OFFICER JORDAN RODRIGUEZ M.D. Performed By: #### C OVID-19 LIAT, SOFIANEG #### [facility] [address] [place] [address] Estimated GFR ( Camilla 15 Normal [facility] Comment on above: Result Comment: GFR estimated reference range: According to KDOQI guidelines, <60 ml/min/1.73m2 is sufficient to diagnose a patient with chronic kidney disease. Performed By: #### C OVID-19 LIAT SOFIANEG #### [facility] [address] Estimated GFR (Non- Am 13 Normal [facility] Comment on above: Performed By: #### C OVID-19 LIAT, SOFIANEG #### [facility] [address] Glucose [Mass/Vol] 78 mg/dL Normal 70-100 [facility] Comment on above: Result Comment: [place] Glucose Reference Range is dependent on time and content of last meal. Glucose of more than 200 mg/dL in a nonstressed, ambulatory subject supports the diagnosis of Diabetes Mellitus. ADA recommended reference range Performed By: #### C OVID-19 LIAT, SOFIANEG #### [facility] [address] Phosphate [Mass/Vol] 7.5 mg/dL High 2.5-4.6 [facility] Comment on above: Performed By: #### C OVID-19 LIAT, SOFIANEG #### [address] Potassium [Moles/Vol] 4.4 mmol/L Normal 3.5-5.1 [facility] Comment on above: Performed By: #### C OVID-19 LIAT, SOFIANEG #### [facility] [address] [place] [address] [place] Sodium [Moles/Vol] 131 mmol/L Low 136-146 [facility] Comment on above: Performed By: #### C OVID-19 LIAT, SOFIANEG #### [facility] [address] [place] [id number] [place] Urea nitrogen [Mass/Vol] 63 mg/dL High 9-23 [facility] Comment on above: Performed By: #### C OVID-19 LIAT, SOFIANEG #### [facility] [address] [place] [address] [place] Rheumatoid Factoron 04-27-20 21 Rheumatoid Factor 20.6 High 0.0-13.9 [facility] Comment on above: Result Comment: Perf ormed at: [facility] [address] [id number] Fishing Rod Marker: Mata Brian PhD, Phone: [phone] Performed By: #### P P #### [facility] [address] Serum nuclear antibody titer on 08-23-2020 Nuclear Ab (S) [Titer] Negative [facility] Comment on above: Negative <1:80 Borde rline 1:80 Positive >1:80Performed at: [facility] [address] [id number] Director: Mata Brian PhD, Phone: [phone] Serum or plasma rheumatoid f actor measurement (units/volume)on 08-23-2020 Rheumatoid factor Qn 20.6 [IU]/mL [facility] Comment on above: Performed at: [facility] [address] [id number] Director: Mata Brian PhD, Phone: [phone] Basic Metabolic Panelon 07-29 Calcium [Mass/Vol] 8.6 mg/dL Normal 8.2-10.2 [facility] Comment on above: Performed By: #### C MP, CBC, MG, TROP, BNP #### [facility] [address] [place] [address] [place] Chloride [Moles/Vol] 94 mmol/L Low 95-114 [facility] Comment on above: Performed By: #### C MP, CBC, MG, TROP, BNP #### [facility] [address] [place] [address] [place] CO2 [Moles/Vol] 21.4 mmol/L Low 22.0-30.0 [facility] Comment on above: Performed By: #### C MP, CBC, MG, TROP, BNP #### [facility] [address] Creatinine [Mass/Vol] 4.84 mg/dL High 0.64-1.27 [facility] Comment on above: Performed By: #### C MP, CBC, MG, TROP, BNP #### [address] Creatinine Clr Calc Pharmacy [facility] Comment on above: Result Comment: PERF ORMED BY: [place] [address] PATHOLOGIST [employer]ICER JORDAN RODRIGUEZ M.D. Performed By: #### C MP, CBC, MG, TROP, BNP #### [address] Estimated GFR ( Camilla 15 [facility] Comment on above: Result Comment: GFR estimated reference range: According to KDOQI guidelines, <60 ml/min/1.73m2 is sufficient to diagnose a patient with chronic kidney disease. Performed By: #### C MP, CBC, MG, TROP, BNP #### [address] Estimated GFR (Non- Am 12 [facility] Comment on above: Performed By: #### C MP, CBC, MG, TROP, BNP #### [address] Glucose [Mass/Vol] 154 mg/dL High 70-100 [facility] Comment on above: Result Comment: [place] Glucose Reference Range is dependent on time and content of last meal. Glucose of more than 200 mg/dL in a nonstressed, ambulatory subject supports the diagnosis of Diabetes Mellitus. ADA recommended reference range Performed By: #### C MP, CBC, MG, TROP, BNP #### [address] Potassium [Moles/Vol] 4.9 mmol/L Normal 3.5-5.1 [facility] Comment on above: Performed By: #### C MP, CBC, MG, TROP, BNP #### [address] Sodium [Moles/Vol] 129 mmol/L Low 136-146 [facility] Comment on above: Performed By: #### C MP, CBC, MG, TROP, BNP #### [address] Urea nitrogen [Mass/Vol] 54 mg/dL High 9-23 [facility] Comment on above: Performed By: #### C MP, CBC, MG, TROP, BNP #### [address] biopsyon 08-22-2020 Transferrin [Mass/Vol] 104 mg/dL 180-380 [facility] Complete Blood Count Auto Di ffon 08-22-2020 Basophils (Bld) [#/Vol] 0.0 10*3/uL Normal 0.0-0.2 [facility] Comment on above: Result Comment: PERF ORMED BY: [place] [address] PATHOLOGIST [employer] OFFICER JORDAN RODRIGUEZ M.D. Performed By: #### C MP, CBC, MG, TROP, BNP #### [address] Basophils/100 WBC (Bld) 0.2 % Normal . [facility] Comment on above: Performed By: #### C MP, CBC, MG, TROP, BNP #### [address] Eosinophils (Bld) [#/Vol] 0.0 10*3/uL Normal 0.0-0.45 [facility] Comment on above: Performed By: #### C MP, CBC, MG, TROP, BNP #### [address] Eosinophils/100 WBC (Bld) 0.1 % Normal . [facility] Comment on above: Performed By: #### C MP, CBC, MG, TROP, BNP #### [address] Erythrocyte distribution width (RBC) [Ratio] 16.4 % High 12.0-14.8 [facility] Comment on above: Performed By: #### C MP, CBC, MG, TROP, BNP #### [address] [place] [address] [place] Hematocrit (Bld) [Volume fraction] 30.4 % Low 38.8-50.0 [facility] Comment on above: Performed By: #### C MP, CBC, MG, TROP, BNP #### [address] Hemoglobin (Bld) [Mass/Vol] 9.9 g/dL Low 13.0-17.0 [facility] Comment on above: Performed By: #### C MP, CBC, MG, TROP, BNP #### [address] Lymphocytes (Bld) [#/Vol] 0.6 10*3/uL Low 1.00-4.8 [facility] Comment on above: Performed By: #### C MP, CBC, MG, TROP, BNP #### [address] Lymphocytes/100 WBC (Bld) 5.6 % Normal . [facility] Comment on above: Performed By: #### C MP, CBC, MG, TROP, BNP #### [address] MCH (RBC) [Entitic mass] 27.1 pg Low 27.5-35.2 [facility] Comment on above: Performed By: #### C MP, CBC, MG, TROP, BNP #### [address] MCV (RBC) [Entitic vol] 83.4 fL Low 83.5-101 [facility] Comment on above: Performed By: #### C MP, CBC, MG, TROP, BNP #### [address] Mean Corpuscular HGB Conc 32.5 g/dL Normal 32.5-35.6 [facility] Comment on above: Performed By: #### C MP, CBC, MG, TROP, BNP #### [address] Monocytes (Bld) [#/Vol] 0.8 10*3/uL Normal 0.0-0.8 [facility] Comment on above: Performed By: #### C MP, CBC, MG, TROP, BNP #### [address] Monocytes/100 WBC (Bld) 7.7 % Normal . [facility] Comment on above: Performed By: #### C MP, CBC, MG, TROP, BNP #### [address] Neutrophils (Bld) [#/Vol] 9.5 10*3/uL High 1.8-7.7 [facility] Comment on above: Performed By: #### C MP, CBC, MG, TROP, BNP #### [address] Neutrophils/100 WBC (Bld) 86.4 % Normal . [facility] Comment on above: Performed By: #### C MP, CBC, MG, TROP, BNP #### [address] Nucleated RBC/100 WBC (Bld) [Ratio] 0.0 % Normal 0-0.5 [facility] Comment on above: Performed By: #### C MP, CBC, MG, TROP, BNP #### [address] Platelet mean volume (Bld) [Entitic vol] 7.8 fL Normal 6.6-10.1 [facility] Comment on above: Performed By: #### C MP, CBC, MG, TROP, BNP #### [place] [address] [place] Platelets (Bld) [#/Vol] 227 10*3/uL Normal 150-450 [facility] Comment on above: Performed By: #### C MP, CBC, MG, TROP, BNP #### [place] [address] [place] RBC (Bld) [#/Vol] 3.64 10*6/uL Low 3.90-5.60 [facility] Comment on above: Performed By: #### C MP, CBC, MG, TROP, BNP #### [facility] [address] [place] [address] WBC (Bld) [#/Vol] 11.0 10*3/uL Normal 4.5-11.0 [facility] Comment on above: Performed By: #### C MP, CBC, MG, TROP, BNP #### [facility] [address] [place] [address] ECG 12 lead ECGon 08-22-2020 ECG 12 lead ECG [facility] [place] [address] Electrocardiograph Report Signed Patient: Rashard Lyman MR#: [id number] : 1960 Acct:[id number] Age/Sex: 60 / M ADM Date: 08/18/20 Loc: Room: [address] [place] [address] Type: ADM IN Attending Dr: Gordon Ewing [...] 08/22/20 1221 Signed By: 08/23/20 1047 Normal [facility] ECG 12 lead ECG [facility] [place] [address] Electrocardiograph Report Signed Patient: Rashard Lyman MR#: [id number] : 1960 Acct:[id number] Age/Sex: 60 / M ADM Date: 08/18/20 Loc: Room: [address] [place] [address] Type: ADM IN Attending Dr: Gordon Ewing [...] MD 08/22/20 0751 Signed By: 08/22/20 1201 [facility] ECH echo transthoracicon ECH echo transthoracic [facility] [place] [address] Echocardiogram Signed Patient: Rashard Lyman MR#: [id number] : 1960 Acct:[id number] Age/Sex: 60 / M ADM Date: 08/18/20 Loc: Room: [address] [place] [address] Type: ADM IN Attending Dr: Gordon Ewing MD Ordering Provider: Gautam Bazan MD Date of Service: 08/22/20 ECH/ECH echo transthoracic: Pericarditis Copies to: Gautam Bazan MD Weight: 362 lb Performed By: DOREEN Lnig BSA: 2.9 m2 BP: 123/77 mmHg HR: [...] MD 08/22/20 1016 Signed By: 08/22/20 1138 [facility] FE PROon 08-22-2020 % Iron Saturation 11.0 % Low 20-50 [facility] Comment on above: Performed By: #### C MP, CBC, MG, TROP, BNP #### [facility] [address] Ferritin [Mass/Vol] 334.8 ng/mL Normal 23.9-336.2 [facility] Comment on above: Result Comment: PERF ORMED BY: [place] [address] PATHOLOGIST [employer]ICER JORDAN RODRIGUEZ M.D. Performed By: #### C MP, CBC, MG, TROP, BNP #### [address] Iron [Mass/Vol] 17 ug/dL Low 40-160 [facility] Comment on above: Performed By: #### C MP, CBC, MG, TROP, BNP #### [address] Total Iron Binding Capacity 146 ug/dL Low 255-450 [facility] Comment on above: Performed By: #### C MP, CBC, MG, TROP, BNP #### [address] Transferrin [Mass/Vol] 104 mg/dL Low 180-380 [facility] Comment on above: Performed By: #### C MP, CBC, MG, TROP, BNP #### [address] Ferritin [Mass/volume] in Se rum or Plasmaon 08-22-2020 Ferritin [Mass/Vol] 334.8 ng/mL 23.9-336.2 [facility] Glucose Poct Glucometerson 0 08-22-2020 Commemt1 Glu2: Cleaned Meter Normal [facility] Comment on above: Result Comment: PERF ORMED BY: [place] [address] PATHOLOGIST [employer] OFFICER JORDAN RODRIGUEZ M.D. Performed By: #### C OVID-19 LIAT, SOFIANEG #### [facility] [address] [place] [address] Glucose [Mass/Vol] 81 mg/dL Normal [facility] Comment on above: Result Comment: [place] Glucose Reference Range is dependent on time and content of last meal. Glucose of more than 200 mg/dL in a nonstressed, ambulatory subject supports the diagnosis of Diabetes Mellitus. Performed By: #### C OVID-19 BARB JOSUEIANEG #### [address] Glucose [Mass/Vol] 106 mg/dL Normal [facility] Comment on above: Result Comment: [place] om Glucose Reference Range is dependent on time and content of last meal. Glucose of more than 200 mg/dL in a nonstressed, ambulatory subject supports the diagnosis of Diabetes Mellitus. PERFORMED BY: [place] [address] PATHOLOGIST [employer] OFFICER JORDAN RODRIGUEZ M.D. Performed By: #### C OVID-19 BARB JOSUEIANEG #### [address] Glucose [Mass/Vol] 158 mg/dL Normal [facility] Comment on above: Result Comment: [place] om Glucose Reference Range is dependent on time and content of last meal. Glucose of more than 200 mg/dL in a nonstressed, ambulatory subject supports the diagnosis of Diabetes Mellitus. PERFORMED BY: [place] [address] PATHOLOGIST [employer] OFFICER JORDAN RODRIGUEZ M.D. Performed By: #### C OVID-19 LIAT SOFIANEG #### [address] Glucose [Mass/Vol] 138 mg/dL Normal [facility] Comment on above: Result Comment: [place] om Glucose Reference Range is dependent on time and content of last meal. Glucose of more than 200 mg/dL in a nonstressed, ambulatory subject supports the diagnosis of Diabetes Mellitus. PERFORMED BY: [place] [address] PATHOLOGIST [employer] OFFICER JORDAN RODRIGUEZ M.D. Performed By: #### C MP, CBC, MG, TROP, BNP #### [address] Glucose [Mass/Vol] 177 mg/dL Normal [facility] Comment on above: Result Comment: [facility] Glucose Reference Range is dependent on time and content of last meal. Glucose of more than 200 mg/dL in a nonstressed, ambulatory subject supports the diagnosis of Diabetes Mellitus. PERFORMED BY: [place] [address] PATHOLOGIST [employer] OFFICER JORDAN RODRIGUEZ M.D. Performed By: #### C MP, CBC, MG, TROP, BNP #### [address] Iron [Mass/volume] in Serum or Plasmaon 08-22-2020 Iron [Mass/Vol] 17 ug/dL 40-160 [facility] Iron binding capacity [Mass/ volume] in Serum or Plasmaon 08-22-2020 Iron binding capacity [Mass/Vol] 146 ug/dL 255-450 [facility] Iron saturation [Mass Fracti on] in Serum or Plasmaon 08-22-2020 Iron saturation [Mass fraction] 11.0 % 20-50 [facility] Basic Metabolic Panelon 07-29 Calcium [Mass/Vol] 8.8 mg/dL Normal 8.2-10.2 [facility] Comment on above: Performed By: #### C MP, CBC, MG, TROP, BNP #### [place] [address] [place] Chloride [Moles/Vol] 95 mmol/L Normal 95-114 [facility] Comment on above: Performed By: #### C MP, CBC, MG, TROP, BNP #### [place] [address] [place] CO2 [Moles/Vol] 24.4 mmol/L Normal 22.0-30.0 [facility] Comment on above: Performed By: #### C MP, CBC, MG, TROP, BNP #### [address] Creatinine [Mass/Vol] 4.31 mg/dL High 0.64-1.27 [facility] Comment on above: Performed By: #### C MP, CBC, MG, TROP, BNP #### [address] Creatinine Clr Calc Pharmacy 30.19 [facility] Comment on above: Result Comment: PERF ORMED BY: [place] [address] PATHOLOGIST [employer] OFFICER JORDAN RODRIGUEZ M.D. Performed By: #### C MP, CBC, MG, TROP, BNP #### [address] Estimated GFR ( Camilla 17 [facility] Comment on above: Result Comment: GFR estimated reference range: According to KDOQI guidelines, <60 ml/min/1.73m2 is sufficient to diagnose a patient with chronic kidney disease. Performed By: #### C MP, CBC, MG, TROP, BNP #### [address] Estimated GFR (Non- Am 14 [facility] Comment on above: Performed By: #### C MP, CBC, MG, TROP, BNP #### [address] Glucose [Mass/Vol] 206 mg/dL High 70-100 [facility] Comment on above: Result Comment: [place] Glucose Reference Range is dependent on time and content of last meal. Glucose of more than 200 mg/dL in a nonstressed, ambulatory subject supports the diagnosis of Diabetes Mellitus. ADA recommended reference range Performed By: #### C MP, CBC, MG, TROP, BNP #### [address] Potassium [Moles/Vol] 4.3 mmol/L Normal 3.5-5.1 [facility] Comment on above: Performed By: #### C MP, CBC, MG, TROP, BNP #### [address] Sodium [Moles/Vol] 131 mmol/L Low 136-146 [facility] Comment on above: Performed By: #### C MP, CBC, MG, TROP, BNP #### [place] [address] [place] Urea nitrogen [Mass/Vol] 44 mg/dL High 9- [facility] Comment on above: Performed By: #### C MP, CBC, MG, TROP, BNP #### [facility] [address] [place] [address] Creatine Kinaseon 08-21-2020 CK [Catalytic activity/Vol] 45 U/L Normal [facility] Comment on above: Performed By: #### C MP, CBC, MG, TROP, BNP #### [address] Creatine kinase [Enzymatic a ctivity/volume] in Serum or Plasmaon 08-21-2020 CK [Catalytic activity/Vol] 45 U/L [facility] Creatinine Kinase MBon 08-21 CK.MB [Mass/Vol] 2.3 ng/mL Normal 0.6-6.3 [facility] Comment on above: Performed By: #### C MP, CBC, MG, TROP, BNP #### [address] CKMB Relative Index 5.1 % High 0.00-2.50 [facility] Comment on above: Performed By: #### C MP, CBC, MG, TROP, BNP #### [address] ECG 12 lead ECGon 08-21-2020 ECG 12 lead ECG [facility] [place] [address] [place] [address] Electrocardiograph Report Signed Patient: Rashard Lyman MR#: [id number] 1397 : 1960 Acct:[id number] Age/Sex: 60 / M ADM Date: 08/18/20 Loc: Room: [address] [place] [address] Type: ADM IN Attending Dr: Eugene Morel [...] By: MUS Dictated By: Nir Ochoa DO 08/21/2056 Signed By: 08/21/202008 [facility] ECG 12 lead ECG [facility] [place] [address] Electrocardiograph Report Signed Patient: Rashard Lyman MR#: [id number] : 1960 Acct:[id number] Age/Sex: 60 / M ADM Date: 08/18/20 Loc: Room: [address] [place] [address] Type: ADM IN Attending Dr: Eugene Morel [...] By: MUS Dictated By: Nir Ochoa DO 08/21/2028 Signed By: 08/21/202029 [facility] ECG 12 lead ECG [facility] [place] [address] [place] [address] Electrocardiograph Report Signed Patient: Rashard Lyman MR#: [id number] : 1960 Acct:[id number] Age/Sex: 60 / M ADM Date: 08/18/20 Loc: 4 Room: [address] [place] [address] Type: ADM IN Attending Dr: Eugene Morel [...] Nir Ochoa DO 08/21/20615 Signed By: 08/21/202053 [facility] Glucose Poct Glucometerson 0 08-21-2020 Glucose [Mass/Vol] 210 mg/dL [facility] Comment on above: Result Comment: [facility] Glucose Reference Range is dependent on time and content of last meal. Glucose of more than 200 mg/dL in a nonstressed, ambulatory subject supports the diagnosis of Diabetes Mellitus. PERFORMED BY: [place] [address] PATHOLOGIST [employer] OFFICER JORDAN RODRIGUEZ M.D. Performed By: #### C MP, CBC, MG, TROP, BNP #### [address] Commemt1 Glu2: Cleaned Meter Normal [facility] Comment on above: Result Comment: PERF ORMED BY: [place] [address] PATHOLOGIST [employer] OFFICER JORDAN RODRIGUEZ M.D. Performed By: #### C MP, CBC, MG, TROP, BNP #### [address] Glucose [Mass/Vol] 136 mg/dL Normal [facility] Comment on above: Result Comment: [place] om Glucose Reference Range is dependent on time and content of last meal. Glucose of more than 200 mg/dL in a nonstressed, ambulatory subject supports the diagnosis of Diabetes Mellitus. Performed By: #### C MP, CBC, MG, TROP, BNP #### [address] Commemt1 Glu2: Cleaned Meter [facility] Comment on above: Result Comment: PERF ORMED BY: [place] [address] PATHOLOGIST [employer] OFFICER JORDAN RODRIGUEZ M.D. Performed By: #### C MP, CBC, MG, TROP, BNP #### [address] Glucose [Mass/Vol] 198 mg/dL Normal [facility] Comment on above: Result Comment: [place] om Glucose Reference Range is dependent on time and content of last meal. Glucose of more than 200 mg/dL in a nonstressed, ambulatory subject supports the diagnosis of Diabetes Mellitus. Performed By: #### C MP, CBC, MG, TROP, BNP #### [address] Commemt1 Glu2: Cleaned Meter [facility] Comment on above: Result Comment: PERF ORMED BY: [place] [address] PATHOLOGIST [employer] OFFICER JORDAN RODRIGUEZ M.D. Performed By: #### C MP, CBC, MG, TROP, BNP #### [address] Glucose [Mass/Vol] 221 mg/dL Normal [facility] Comment on above: Result Comment: [place] om Glucose Reference Range is dependent on time and content of last meal. Glucose of more than 200 mg/dL in a nonstressed, ambulatory subject supports the diagnosis of Diabetes Mellitus. Performed By: #### C MP, CBC, MG, TROP, BNP #### [address] Glucose [Mass/Vol] 210 mg/dL Normal [facility] Comment on above: Result Comment: [place] om Glucose Reference Range is dependent on time and content of last meal. Glucose of more than 200 mg/dL in a nonstressed, ambulatory subject supports the diagnosis of Diabetes Mellitus. PERFORMED BY: [place] [address] PATHOLOGIST [employer] OFFICER JORDAN RODRIGUEZ M.D. Performed By: #### C MP, CBC, MG, TROP, BNP #### [address] No Panel Informationon 08-21 Dohle Bodies Slight [facility] Scan and CBCon 08-21-2020 Anisocytosis Ql (Bld) Slight Normal [facility] Comment on above: Performed By: #### C MP, CBC, MG, TROP, BNP #### [address] Basophils (Bld) [#/Vol] 0.0 10*3/uL Normal 0.0-0.2 [facility] Comment on above: Performed By: #### C MP, CBC, MG, TROP, BNP #### [address] Basophils/100 WBC (Bld) 0.3 % Normal . [facility] Comment on above: Performed By: #### C MP, CBC, MG, TROP, BNP #### [address] Dohle Bodies Slight Normal [facility] Comment on above: Performed By: #### C MP, CBC, MG, TROP, BNP #### [address] Eosinophils (Bld) [#/Vol] 0.5 10*3/uL High 0.0-0.45 [facility] Comment on above: Performed By: #### C MP, CBC, MG, TROP, BNP #### [address] Eosinophils/100 WBC (Bld) 3.2 % Normal . [facility] Comment on above: Performed By: #### C MP, CBC, MG, TROP, BNP #### [address] Erythrocyte distribution width (RBC) [Ratio] 16.6 % High 12.0-14.8 [facility] Comment on above: Performed By: #### C MP, CBC, MG, TROP, BNP #### [address] Hematocrit (Bld) [Volume fraction] 31.8 % Low 38.8-50.0 [facility] Comment on above: Performed By: #### C MP, CBC, MG, TROP, BNP #### [address] Hemoglobin (Bld) [Mass/Vol] 10.3 g/dL Low 13.0-17.0 [facility] Comment on above: Performed By: #### C MP, CBC, MG, TROP, BNP #### [address] Lymphocytes (Bld) [#/Vol] 1.2 10*3/uL Normal 1.00-4.8 [facility] Comment on above: Performed By: #### C MP, CBC, MG, TROP, BNP #### [address] Lymphocytes/100 WBC (Bld) 8.1 % Normal . [facility] Comment on above: Performed By: #### C MP, CBC, MG, TROP, BNP #### [address] MCH (RBC) [Entitic mass] 26.8 pg Low 27.5-35.2 [facility] Comment on above: Performed By: #### C MP, CBC, MG, TROP, BNP #### [address] MCV (RBC) [Entitic vol] 83.1 fL Low 83.5-101 [facility] Comment on above: Performed By: #### C MP, CBC, MG, TROP, BNP #### [address] Mean Corpuscular HGB Conc 32.3 g/dL Low 32.5-35.6 [facility] Comment on above: Performed By: #### C MP, CBC, MG, TROP, BNP #### [address] Monocytes (Bld) [#/Vol] 1.7 10*3/uL High 0.0-0.8 [facility] Comment on above: Performed By: #### C MP, CBC, MG, TROP, BNP #### [address] Monocytes/100 WBC (Bld) 11.4 % Normal . [facility] Comment on above: Performed By: #### C MP, CBC, MG, TROP, BNP #### [address] Neutrophils (Bld) [#/Vol] 11.2 10*3/uL High 1.8-7.7 [facility] Comment on above: Performed By: #### C MP, CBC, MG, TROP, BNP #### [address] Neutrophils/100 WBC (Bld) 77.0 % Normal . [facility] Comment on above: Performed By: #### C MP, CBC, MG, TROP, BNP #### [address] Nucleated RBC/100 WBC (Bld) [Ratio] 0.1 % Normal 0-0.5 [facility] Comment on above: Performed By: #### C MP, CBC, MG, TROP, BNP #### [address] [address] [place] Platelet Estimate Normal Normal Normal [facility] Comment on above: Performed By: #### C MP, CBC, MG, TROP, BNP #### [address] Platelet mean volume (Bld) [Entitic vol] 7.8 fL Normal 6.6-10.1 [facility] Comment on above: Performed By: #### C MP, CBC, MG, TROP, BNP #### [address] Platelet Morphology Normal Normal Normal [facility] Comment on above: Result Comment: PERF ORMED BY: [place] [address] PATHOLOGIST [employer] JORDAN RODRIGUEZ M.D. Performed By: #### C MP, CBC, MG, TROP, BNP #### [address] Platelets (Bld) [#/Vol] 265 10*3/uL Normal 150-450 [facility] Comment on above: Performed By: #### C MP, CBC, MG, TROP, BNP #### [address] RBC (Bld) [#/Vol] 3.83 10*6/uL Low 3.90-5.60 [facility] Comment on above: Performed By: #### C MP, CBC, MG, TROP, BNP #### [address] WBC (Bld) [#/Vol] 14.6 10*3/uL High 4.5-11.0 [facility] Comment on above: Performed By: #### C MP, CBC, MG, TROP, BNP #### [address] Serum or plasma cardiac trop onin I measurement (mass/volume)on 08-21-2020 Troponin I.cardiac [Mass/Vol] ng/mL 0-0.02 [facility] Comment on above: HÉCTOR CA Cut off value > or equal to 0.03 ng/mL in conjunction with clinical conditions of myocardial infarction.(www.escardio.org/guidelines) Serum or plasma creatine kin ase MB (CKMB)/total creatine kinase (CK) ratio by calculaon 08-21-2020 CK.MB Calc [Catalytic fraction] 5.1 % 0.00-2.50 [facility] Serum or plasma creatine kin ase MB measurement (mass/volume)on 08-21-2020 CK.MB [Mass/Vol] 2.3 ng/mL 0.6-6.3 [facility] Troponin I(TnI)on 08-21-2020 Troponin I.cardiac [Mass/Vol] ng/mL Normal 0-0.02 [facility] Comment on above: Result Comment: HÉCTOR [place] Cut off value > or equal to 0.03 ng/mL in conjunction with clinical conditions of myocardial infarction. (www.escardio.org/guidelines) PERFORMED BY: [place] [address] PATHOLOGIST [employer]IC[employer] JORDAN RODRIGUEZ M.D. Performed By: #### C MP, CBC, MG, TROP, BNP #### [address] Troponin I.cardiac [Mass/Vol] ng/mL Normal 0-0.02 [facility] Comment on above: Result Comment: HÉCTOR [place] Cut off value > or equal to 0.03 ng/mL in conjunction with clinical conditions of myocardial infarction. (www.escardio.org/guidelines) PERFORMED BY: [place] [address] PATHOLOGIST [employer] OFFICER JORDAN RODRIGUEZ M.D. Performed By: #### C MP, CBC, MG, TROP, BNP #### [address] Basic Metabolic Panelon 07-29 Calcium [Mass/Vol] 8.4 mg/dL Normal 8.2-10.2 [facility] Comment on above: Performed By: #### C MP, CBC, MG, TROP, BNP #### [place] [address] [place] Chloride [Moles/Vol] 99 mmol/L Normal 95-114 [facility] Comment on above: Performed By: #### C MP, CBC, MG, TROP, BNP #### [address] CO2 [Moles/Vol] 25.0 mmol/L Normal 22.0-30.0 [facility] Comment on above: Performed By: #### C MP, CBC, MG, TROP, BNP #### [address] Creatinine [Mass/Vol] 3.26 mg/dL High 0.64-1.27 [facility] Comment on above: Performed By: #### C MP, CBC, MG, TROP, BNP #### [address] Creatinine Clr Calc Pharmacy 39.92 [facility] Comment on above: Result Comment: PERF ORMED BY: [place] [address] PATHOLOGIST [employer]ICER JORDAN RODRIGUEZ M.D. Performed By: #### C MP, CBC, MG, TROP, BNP #### [address] Estimated GFR ( Camilla 24 [facility] Comment on above: Result Comment: GFR estimated reference range: According to KDOQI guidelines, <60 ml/min/1.73m2 is sufficient to diagnose a patient with chronic kidney disease. Performed By: #### C MP, CBC, MG, TROP, BNP #### [address] Estimated GFR (Non- Am 19 [facility] Comment on above: Performed By: #### C MP, CBC, MG, TROP, BNP #### [address] Glucose [Mass/Vol] 205 mg/dL High 70-100 [facility] Comment on above: Result Comment: [place] Glucose Reference Range is dependent on time and content of last meal. Glucose of more than 200 mg/dL in a nonstressed, ambulatory subject supports the diagnosis of Diabetes Mellitus. ADA recommended reference range Performed By: #### C MP, CBC, MG, TROP, BNP #### [address] Potassium [Moles/Vol] 3.5 mmol/L Normal 3.5-5.1 [facility] Comment on above: Performed By: #### C MP, CBC, MG, TROP, BNP #### [address] Sodium [Moles/Vol] 131 mmol/L Low 136-146 [facility] Comment on above: Performed By: #### C MP, CBC, MG, TROP, BNP #### [address] Urea nitrogen [Mass/Vol] 35 mg/dL High 9-23 [facility] Comment on above: Performed By: #### C MP, CBC, MG, TROP, BNP #### [address] C-Reactive Proteinon 021 C-Reactive Protein 19.4 mg/dL High 0.0-1.0 [facility] Comment on above: Result Comment: PERF ORMED BY: [place] [address] PATHOLOGIST [employer] JORDAN RODRIGUEZ M.D. Performed By: #### C MP, CBC, MG, TROP, BNP #### [address] Erythrocyte Sedimentation Ra donato 08-20-2020 ESR (Bld) [Velocity] 108 mm/h High 0-19 [facility] Comment on above: Result Comment: PERF ORMED BY: [place] [address] PATHOLOGIST [employer] JORDAN RODRIGUEZ M.D. Performed By: #### C MP, CBC, MG, TROP, BNP #### [address] Erythrocyte sedimentation ra te by Photometric methodon 08-20-2020 ESR Photometric method (Bld) [Velocity] 108 mm/hr 0-19 [facility] Glucose Poct Glucometerson 0 08-20-2020 Glucose [Mass/Vol] 195 mg/dL Normal [facility] Comment on above: Result Comment: [facility] Glucose Reference Range is dependent on time and content of last meal. Glucose of more than 200 mg/dL in a nonstressed, ambulatory subject supports the diagnosis of Diabetes Mellitus. PERFORMED BY: [place] [phone] PATHOLOGIST [employer]ICER JORDAN RODRIGUEZ M.D. Performed By: #### C MP, CBC, MG, TROP, BNP #### [address] Glucose [Mass/Vol] 171 mg/dL Normal [facility] Comment on above: Result Comment: [facility] Glucose Reference Range is dependent on time and content of last meal. Glucose of more than 200 mg/dL in a nonstressed, ambulatory subject supports the diagnosis of Diabetes Mellitus. PERFORMED BY: [place] [address] PATHOLOGIST [employer] OFFICER JORDAN RODRIGUEZ M.D. Performed By: #### C MP, CBC, MG, TROP, BNP #### [place] [address] [place] Glucose [Mass/Vol] 246 mg/dL Normal [facility] Comment on above: Result Comment: [facility] Glucose Reference Range is dependent on time and content of last meal. Glucose of more than 200 mg/dL in a nonstressed, ambulatory subject supports the diagnosis of Diabetes Mellitus. PERFORMED BY: [place] [address] PATHOLOGIST [employer] OFFICER JORDAN RODRIGUEZ M.D. Performed By: #### C MP, CBC, MG, TROP, BNP #### [place] [address] [place] Glucose [Mass/Vol] 274 mg/dL Normal [facility] Comment on above: Result Comment: [place] Glucose Reference Range is dependent on time and content of last meal. Glucose of more than 200 mg/dL in a nonstressed, ambulatory subject supports the diagnosis of Diabetes Mellitus. PERFORMED BY: [place] [address] PATHOLOGIST [employer] OFFICER JORDAN RODRIGUEZ M.D. Performed By: #### C MP, CBC, MG, TROP, BNP #### [facility] [address] [place] [address] Glucose [Mass/Vol] 221 mg/dL Normal [facility] Comment on above: Result Comment: [facility] Glucose Reference Range is dependent on time and content of last meal. Glucose of more than 200 mg/dL in a nonstressed, ambulatory subject supports the diagnosis of Diabetes Mellitus. PERFORMED BY: [place] [address] PATHOLOGIST [employer] OFFICER JORDAN RODRIGUEZ M.D. Performed By: #### C MP, CBC, MG, TROP, BNP #### [place] [id number] [facility] MR thoracic spine wo conon 0 08-20-2020 MR thoracic spine wo con [facility] [place] [address] [place] [address] MRI Report Signed Patient: Rashard Lyman MR#: [id number] : 1960 Acct:[id number] Age/Sex: 60 / M ADM Date: 08/18/20 Loc: Room: [address] [place] [address] Type: ADM IN Attending Dr: Eugene Morel [...] Chitra Brantley M.D.08/20/2020 6:27 PM Dictation Location: [place] [address] Transcribed By: [facility] 08/20/201826 Dictated By: Chitra Brantley MD 08/20/201816 Signed By: 08/20/201826 Normal [facility] Scan and CBCon 08-20-2020 Anisocytosis Ql (Bld) Slight Normal [facility] Comment on above: Performed By: #### C MP, CBC, MG, TROP, BNP #### [address] Basophils (Bld) [#/Vol] 0.0 10*3/uL Normal 0.0-0.2 [facility] Comment on above: Performed By: #### C MP, CBC, MG, TROP, BNP #### [address] Basophils/100 WBC (Bld) 0.3 % Normal . [facility] Comment on above: Performed By: #### C MP, CBC, MG, TROP, BNP #### [address] Dohle Bodies Slight Normal [facility] Comment on above: Performed By: #### C MP, CBC, MG, TROP, BNP #### [address] Eosinophils (Bld) [#/Vol] 0.5 10*3/uL High 0.0-0.45 [facility] Comment on above: Performed By: #### C MP, CBC, MG, TROP, BNP #### [address] Eosinophils/100 WBC (Bld) 3.8 % Normal . [facility] Comment on above: Performed By: #### C MP, CBC, MG, TROP, BNP #### [address] Erythrocyte distribution width (RBC) [Ratio] 16.2 % High 12.0-14.8 [facility] Comment on above: Performed By: #### C MP, CBC, MG, TROP, BNP #### [address] Hematocrit (Bld) [Volume fraction] 32.1 % Low 38.8-50.0 [facility] Comment on above: Performed By: #### C MP, CBC, MG, TROP, BNP #### [address] Hemoglobin (Bld) [Mass/Vol] 10.4 g/dL Low 13.0-17.0 [facility] Comment on above: Performed By: #### C MP, CBC, MG, TROP, BNP #### [address] Lymphocytes (Bld) [#/Vol] 1.5 10*3/uL Normal 1.00-4.8 [facility] Comment on above: Performed By: #### C MP, CBC, MG, TROP, BNP #### [address] Lymphocytes/100 WBC (Bld) 11.0 % Normal . [facility] Comment on above: Performed By: #### C MP, CBC, MG, TROP, BNP #### [address] MCH (RBC) [Entitic mass] 26.7 pg Low 27.5-35.2 [facility] Comment on above: Performed By: #### C MP, CBC, MG, TROP, BNP #### [address] MCV (RBC) [Entitic vol] 82.2 fL Low 83.5-101 [facility] Comment on above: Performed By: #### C MP, CBC, MG, TROP, BNP #### [address] Mean Corpuscular HGB Conc 32.5 g/dL Normal 32.5-35.6 [facility] Comment on above: Performed By: #### C MP, CBC, MG, TROP, BNP #### [address] Monocytes (Bld) [#/Vol] 1.7 10*3/uL High 0.0-0.8 [facility] Comment on above: Performed By: #### C MP, CBC, MG, TROP, BNP #### [address] Monocytes/100 WBC (Bld) 12.5 % Normal . [facility] Comment on above: Performed By: #### C MP, CBC, MG, TROP, BNP #### [address] Neutrophils (Bld) [#/Vol] 9.7 10*3/uL High 1.8-7.7 [facility] Comment on above: Performed By: #### C MP, CBC, MG, TROP, BNP #### [address] Neutrophils/100 WBC (Bld) 72.4 % Normal . [facility] Comment on above: Performed By: #### C MP, CBC, MG, TROP, BNP #### [address] Nucleated RBC/100 WBC (Bld) [Ratio] 0.0 % Normal 0-0.5 [facility] Comment on above: Performed By: #### C MP, CBC, MG, TROP, BNP #### [address] Platelet Estimate Normal Normal Normal [facility] Comment on above: Performed By: #### C MP, CBC, MG, TROP, BNP #### [address] Platelet mean volume (Bld) [Entitic vol] 7.7 fL Normal 6.6-10.1 [facility] Comment on above: Performed By: #### C MP, CBC, MG, TROP, BNP #### [address] Platelet Morphology Normal Normal Normal [facility] Comment on above: Performed By: #### C MP, CBC, MG, TROP, BNP #### [address] Platelets (Bld) [#/Vol] 253 10*3/uL Normal 150-450 [facility] Comment on above: Performed By: #### C MP, CBC, MG, TROP, BNP #### [address] RBC (Bld) [#/Vol] 3.90 10*6/uL Normal 3.90-5.60 [facility] Comment on above: Performed By: #### C MP, CBC, MG, TROP, BNP #### [address] WBC (Bld) [#/Vol] 13.4 10*3/uL High 4.5-11.0 [facility] Comment on above: Performed By: #### C MP, CBC, MG, TROP, BNP #### [address] Serum or plasma C reactive p rotein measurement (mass/volume)on 08-20-2020 CRP [Mass/Vol] 19.4 mg/dL 0.0-1.0 [facility] A1C with Estimated Average G luon 08-19-2020 Glucose [Mass/Vol] 298 mg/dL Normal [facility] Comment on above: Result Comment: PERF ORMED BY: [place] [address] PATHOLOGIST [employer]ER JORDAN RODRIGUEZ M.D. Performed By: #### C MP, CBC, MG, TROP, BNP #### [address] HbA1c (Bld) [Mass fraction] 12.0 % High 4.3-5.6 [facility] Comment on above: Result Comment: Incr eased risk for diabetes: 5.7 - 6.4 diabetes: >6.4 glycemic control for adults with diabetes: <7.0 Performed By: #### C MP, CBC, MG, TROP, BNP #### [address] ABO and Rh group post transf usion reaction Nom (Bld)on 08-19-2020 Microscopic observation Gram stain Nom (Unsp spec) [facility] Aerobic Cultureon 08-19-2020 Aerobic Culture Light Normal Respira tory Edith 2 Days Gram Stain Result 2+ White Blood Cells 1+ Epithelial Cells 1+ Gram Positive Cocci PERFORMED BY: [place] [address] PATHOLOGIST [employer] OFFICER JORDAN RODRIGUEZ M.D. [facility] Comment on above: Performed By: #### C MP, CBC, MG, TROP, BNP #### [address] Basic Metabolic Panelon 07-29 Calcium [Mass/Vol] 8.4 mg/dL Normal 8.2-10.2 [facility] Comment on above: Performed By: #### C MP, CBC, MG, TROP, BNP #### [address] Chloride [Moles/Vol] 98 mmol/L Normal 95-114 [facility] Comment on above: Performed By: #### C MP, CBC, MG, TROP, BNP #### [address] CO2 [Moles/Vol] 25.3 mmol/L Normal 22.0-30.0 [facility] Comment on above: Performed By: #### C MP, CBC, MG, TROP, BNP #### [facility] [address] Creatinine [Mass/Vol] 3.04 mg/dL High 0.64-1.27 [facility] Comment on above: Performed By: #### C MP, CBC, MG, TROP, BNP #### [facility] [address] [place] [address] [place] Creatinine Clr Calc Pharmacy 42.91 [facility] Comment on above: Performed By: #### C MP, CBC, MG, TROP, BNP #### [facility] [address] Estimated GFR ( Camilla 26 [facility] Comment on above: Result Comment: GFR estimated reference range: According to KDOQI guidelines, <60 ml/min/1.73m2 is sufficient to diagnose a patient with chronic kidney disease. Performed By: #### C MP, CBC, MG, TROP, BNP #### [facility] [address] Estimated GFR (Non- Am 21 [facility] Comment on above: Performed By: #### C MP, CBC, MG, TROP, BNP #### [address] Glucose [Mass/Vol] 328 mg/dL High 70-100 [facility] Comment on above: Result Comment: [place] Glucose Reference Range is dependent on time and content of last meal. Glucose of more than 200 mg/dL in a nonstressed, ambulatory subject supports the diagnosis of Diabetes Mellitus. ADA recommended reference range Performed By: #### C MP, CBC, MG, TROP, BNP #### [facility] [address] Potassium [Moles/Vol] 3.4 mmol/L Low 3.5-5.1 [facility] Comment on above: Performed By: #### C MP, CBC, MG, TROP, BNP #### [facility] [address] Sodium [Moles/Vol] 131 mmol/L Low 136-146 [facility] Comment on above: Performed By: #### C MP, CBC, MG, TROP, BNP #### [facility] [address] [place] [id number] [facility] Urea nitrogen [Mass/Vol] 30 mg/dL High 01-19 [facility] Comment on above: Performed By: #### C MP, CBC, MG, TROP, BNP #### [facility] [address] [place] [id number] [facility] CT abdomen pelvis wo conon 0 08-19-2020 CT abdomen pelvis wo con [facility] [place] [address] [place] [address] CT Scan Report Signed Patient: Rashard Lyman MR#: [id number] : 1960 Acct:[id number] Age/Sex: 60 / M ADM Date: 08/18/20 Loc: Room: [address] [place] [address] Type: ADM IN Attending Dr: Eugene Morel DO Ordering Provider: Eugene Morel DO Date of Service: 08/19/20 CT/CT abdomen pelvis wo con: left sided pain ([id number]) CT/CT chest wo con: left lung base [...] Hector Mckinney M.D.08/19/2020 8:01 PM Dictation Location: [place] [address] Transcribed By: [facility] 08/19/202000 Dictated By: Hector Mckinney II, MD 08/19/201947 Signed By: 08/19/202000 Normal [facility] Glucose Poct Glucometerson 0 08-19-2020 Glucose [Mass/Vol] 266 mg/dL Normal [facility] Comment on above: Result Comment: [place] Glucose Reference Range is dependent on time and content of last meal. Glucose of more than 200 mg/dL in a nonstressed, ambulatory subject supports the diagnosis of Diabetes Mellitus. PERFORMED BY: [address] [place] [address] PATHOLOGIST [employer]ICER JORDAN RODRIGUEZ M.D. Performed By: #### C MP, CBC, MG, TROP, BNP #### [facility] [address] Glucose [Mass/Vol] 349 mg/dL Normal [facility] Comment on above: Result Comment: [place] om Glucose Reference Range is dependent on time and content of last meal. Glucose of more than 200 mg/dL in a nonstressed, ambulatory subject supports the diagnosis of Diabetes Mellitus. PERFORMED BY: [place] [address] PATHOLOGIST [employer] OFFICER JORDAN RODRIGUEZ M.D. Performed By: #### C MP, CBC, MG, TROP, BNP #### [address] Glucose [Mass/Vol] 258 mg/dL Normal [facility] Comment on above: Result Comment: [place] om Glucose Reference Range is dependent on time and content of last meal. Glucose of more than 200 mg/dL in a nonstressed, ambulatory subject supports the diagnosis of Diabetes Mellitus. PERFORMED BY: [place] [address] PATHOLOGIST [employer] OFFICER JORDAN RODRIGUEZ M.D. Performed By: #### C MP, CBC, MG, TROP, BNP #### [address] Glucose [Mass/Vol] 292 mg/dL Normal [facility] Comment on above: Result Comment: [place] om Glucose Reference Range is dependent on time and content of last meal. Glucose of more than 200 mg/dL in a nonstressed, ambulatory subject supports the diagnosis of Diabetes Mellitus. PERFORMED BY: [place] [address] PATHOLOGIST [employer] OFFICER JORDAN RODRIGUEZ M.D. Performed By: #### C MP, CBC, MG, TROP, BNP #### [address] Commemt1 Glu2: Cleaned Meter Normal [facility] Comment on above: Result Comment: PERF ORMED BY: [place] [address] PATHOLOGIST [employer] OFFICER JORDAN RODRIGUEZ M.D. Performed By: #### C MP, CBC, MG, TROP, BNP #### [address] Glucose [Mass/Vol] 350 mg/dL Normal [facility] Comment on above: Result Comment: [place] Glucose Reference Range is dependent on time and content of last meal. Glucose of more than 200 mg/dL in a nonstressed, ambulatory subject supports the diagnosis of Diabetes Mellitus. Performed By: #### C MP, CBC, MG, TROP, BNP #### [address] Glucose mean value [Mass/vol ume] in Blood Estimated from glycated hemoglobinon 08-19-2020 Average glucose Estimated from glycated hemoglobin (Bld) [Mass/Vol] 298 mg/dL [facility] Gram Stainon 08-19-2020 Microscopic observation Gram stain Nom (Unsp spec) Gram Stain Result 2+ White Blood Cells 1+ Epithelial Cells 1+ Gram Positive Cocci PERFORMED BY: [place] [address] PATHOLOGIST [employer] OFFICER JORDAN RODRIGUEZ M.D. [facility] Comment on above: Performed By: #### C MP, CBC, MG, TROP, BNP #### [address] Hemoglobin A1c percentageon 08-19-2020 HbA1c (Bld) [Mass fraction] 12.0 % 4.3-5.6 [facility] Comment on above: Increased risk for d iabetes: 5.7 - 6.4diabetes: >6.4glycemic control for adults with diabetes: <7.0 Laboratory - Chemistry and C hemistry - challengeon 08-19-2020 Magnesium [Mass/Vol] 2.0 mg/dL 1.6-2.6 [facility] Magnesiumon 08-19-2020 Magnesium [Mass/Vol] 2.0 mg/dL Normal 1.6-2.6 [facility] Comment on above: Performed By: #### C MP, CBC, MG, TROP, BNP #### [address] No Panel Informationon 08-19 25-Hydroxy Vitamin D Total 24.6 ng/mL 30-100 [facility] Comment on above: VITAMIN D STATUS 25( [place])VITAMIN D RANGE (ng/mL) Deficient <20 Insufficient 20 to <30Sufficient 30 to 100Reference: Aki MF,Oriana NC, Elli JONAS, et al. Evaluation,treatment, and prevention of vitamin D deficiency; an Endocrine Society clinical practice guideline. JCEM. 2010; 96(7):1911-30. Scan and CBCon 08-19-2020 Anisocytosis Ql (Bld) Slight Normal [facility] Comment on above: Performed By: #### C MP, CBC, MG, TROP, BNP #### [address] Basophils (Bld) [#/Vol] 0.1 10*3/uL Normal 0.0-0.2 [facility] Comment on above: Performed By: #### C MP, CBC, MG, TROP, BNP #### [address] Basophils/100 WBC (Bld) 0.8 % Normal . [facility] Comment on above: Performed By: #### C MP, CBC, MG, TROP, BNP #### [address] Eosinophils (Bld) [#/Vol] 0.4 10*3/uL Normal 0.0-0.45 [facility] Comment on above: Performed By: #### C MP, CBC, MG, TROP, BNP #### [address] Eosinophils/100 WBC (Bld) 2.8 % Normal . [facility] Comment on above: Performed By: #### C MP, CBC, MG, TROP, BNP #### [address] Erythrocyte distribution width (RBC) [Ratio] 16.0 % High 12.0-14.8 [facility] Comment on above: Performed By: #### C MP, CBC, MG, TROP, BNP #### [address] Hematocrit (Bld) [Volume fraction] 32.4 % Low 38.8-50.0 [facility] Comment on above: Performed By: #### C MP, CBC, MG, TROP, BNP #### [address] Hemoglobin (Bld) [Mass/Vol] 10.5 g/dL Low 13.0-17.0 [facility] Comment on above: Performed By: #### C MP, CBC, MG, TROP, BNP #### [address] Lymphocytes (Bld) [#/Vol] 1.6 10*3/uL Normal 1.00-4.8 [facility] Comment on above: Performed By: #### C MP, CBC, MG, TROP, BNP #### [address] Lymphocytes/100 WBC (Bld) 11.4 % Normal . [facility] Comment on above: Performed By: #### C MP, CBC, MG, TROP, BNP #### [address] MCH (RBC) [Entitic mass] 26.6 pg Low 27.5-35.2 [facility] Comment on above: Performed By: #### C MP, CBC, MG, TROP, BNP #### [address] MCV (RBC) [Entitic vol] 82.4 fL Low 83.5-101 [facility] Comment on above: Performed By: #### C MP, CBC, MG, TROP, BNP #### [address] Mean Corpuscular HGB Conc 32.3 g/dL Low 32.5-35.6 [facility] Comment on above: Performed By: #### C MP, CBC, MG, TROP, BNP #### [facility] [address] [place] [address] [place] Monocytes (Bld) [#/Vol] 1.6 10*3/uL High 0.0-0.8 [facility] Comment on above: Performed By: #### C MP, CBC, MG, TROP, BNP #### [facility] [address] Monocytes/100 WBC (Bld) 11.7 % Normal . [facility] Comment on above: Performed By: #### C MP, CBC, MG, TROP, BNP #### [address] Neutrophils (Bld) [#/Vol] 10.2 10*3/uL High 1.8-7.7 [facility] Comment on above: Performed By: #### C MP, CBC, MG, TROP, BNP #### [address] Neutrophils/100 WBC (Bld) 73.3 % Normal . [facility] Comment on above: Performed By: #### C MP, CBC, MG, TROP, BNP #### [place] [address] [place] Nucleated RBC/100 WBC (Bld) [Ratio] 0.0 % Normal 0-0.5 [facility] Comment on above: Performed By: #### C MP, CBC, MG, TROP, BNP #### [address] Platelet Estimate Normal Normal Normal [facility] Comment on above: Performed By: #### C MP, CBC, MG, TROP, BNP #### [address] Platelet mean volume (Bld) [Entitic vol] 7.5 fL Normal 6.6-10.1 [facility] Comment on above: Performed By: #### C MP, CBC, MG, TROP, BNP #### [address] Platelet Morphology Normal Normal Normal [facility] Comment on above: Result Comment: PERF ORMED BY: [place] [address] PATHOLOGIST [employer]ICER JORDAN RODRIGUEZ M.D. Performed By: #### C MP, CBC, MG, TROP, BNP #### [address] Platelets (Bld) [#/Vol] 249 10*3/uL Normal 150-450 [facility] Comment on above: Performed By: #### C MP, CBC, MG, TROP, BNP #### [address] RBC (Bld) [#/Vol] 3.93 10*6/uL Normal 3.90-5.60 [facility] Comment on above: Performed By: #### C MP, CBC, MG, TROP, BNP #### [address] WBC (Bld) [#/Vol] 14.0 10*3/uL High 4.5-11.0 [facility] Comment on above: Performed By: #### C MP, CBC, MG, TROP, BNP #### [address] US renal BIon 08-19-2020 US renal BI [facility] [place] [address] Ultrasound Report Signed Patient: Rashard Lyman MR#: [id number] : 1960 Acct:[id number] Age/Sex: 60 / M ADM Date: 08/18/20 Loc: Room: [address] [place] [address] Type: ADM IN Attending Dr: Eugene Morel [...] Hector Mckinney M.D.08/19/2020 6:09 PM Dictation Location: [place] [address] Tech: Sandra Sierra Transcribed By: JU 08/19/201808 Dictated By: Hector Mckinney II, MD 08/19/201807 Signed By: 08/19/201808 Normal [facility] Vitamin D 25 Hydroxy Totalon 08-19-2020 Vitamin D 25 Hydroxy Total 24.6 ng/mL Low 30-100 [facility] Comment on above: Result Comment: ADA MIN D STATUS 25(OH)VITAMIN D RANGE (ng/mL) Deficient <20 Insufficient 20 to <30 Sufficient 30 to 100 Reference: Aki MF,Oriana NC, Elli JONAS, et al. Evaluation,treatment, and prevention of vitamin D deficiency; an Endocrine Society clinical practice guideline. JCEM. 2010; 96(7):1911-30. PERFORMED BY: [place] [address] PATHOLOGIST [employer] OFFICER JORDAN RODRIGUEZ M.D. Performed By: #### C MP, CBC, MG, TROP, BNP #### [facility] [address] [place] [address] Activated partial thrombopla stin time (aPTT) in platelet poor plasma by coagulation aon 08-18-2020 aPTT Coag (PPP) [Time] 36.9 s 25.1-36.5 [facility] Albumin [Mass/volume] in Ser um or Plasmaon 08-18-2020 Albumin [Mass/Vol] 2.7 g/dL 3.2-5.5 Critical access hospitals [facility] B-Type Natriuretic Peptideon 08-18-2020 Natriuretic peptide B (Bld) [Mass/Vol] 48.0 pg/mL Normal 5-100 [facility] Comment on above: Result Comment: PERF ORMED BY: [place] [address] PATHOLOGIST [employer] OFFICER JORDAN RODRIGUEZ M.D. Performed By: #### C MP, CBC, MG, TROP, BNP #### [address] Bacterial blood cultureon Bacteria identified Cx Nom (Bld) NO GROWTH 5 DAYS [facility] Basophils Auto (Bld) [#/Vol] on 08-18-2020 Basophils (Bld) [#/Vol] 0.0 10*3/uL 0.0-0.2 [facility] Basophils/100 WBC Auto (Bld) on 08-18-2020 Basophils/100 WBC (Bld) 0.3 % [facility] Beta Hydroxybuterateon 08-18 Beta Hydroxybuterate 0.44 mmol/L High 0.02-0.27 [facility] Comment on above: Result Comment: PERF ORMED BY: [place] [address] PATHOLOGIST [employer] OFFICER JORDAN RODRIGUEZ M.D. Performed By: #### C MP, CBC, MG, TROP, BNP #### [address] Beta-hydroxybutyric acid faraz surementon 08-18-2020 Beta hydroxybutyrate [Mass/Vol] 0.44 mmol/L 0.02-0.27 [facility] BioFire Not Detectedon 08-18 BioFire Not Detected Not detected Normal Not Detecte [facility] Comment on above: Result Comment: This is a duplicate RP2.1 COVID (PCR) result to be used for statistical tracking purpose only. PERFORMED BY: [place] [address] PATHOLOGIST [employer] OFFICER JORDAN RODRIGUEZ M.D. Performed By: #### C MP, CBC, MG, TROP, BNP #### [address] Blood Cultureon 08-18-2020 Bacteria identified Cx Nom (Bld) NO GROWTH 5 DAYS PERFORMED BY: [place] [address] PATHOLOGIST [employer] OFFICER JORDAN RODRIGUEZ M.D. [facility] Comment on above: Performed By: #### C MP, CBC, MG, TROP, BNP #### [address] Bacteria identified Cx Nom (Bld) NO GROWTH 5 DAYS PERFORMED BY: [place] [address] PATHOLOGIST [employer] OFFICER JORDAN RODRIGUEZ M.D. [facility] Comment on above: Performed By: #### C MP, CBC, MG, TROP, BNP #### [address] Blood hemoglobin measurement (mass/volume)on 08-18-2020 Hemoglobin (Bld) [Mass/Vol] 11.8 g/dL 13.0-17.0 [facility] Blood leukocytes automated c ount (number/volume)on 08-18-2020 WBC (Bld) [#/Vol] 15.3 10*3/uL 4.5-11.0 [facility] COVID-19 Antigenon 1 COVID-19 Antigen Healthcare [...] its performance Liat Disclaimer characteristic determined by [employer] and Liat Disclaimer validated at [facility]. This Liat Disclaimer test has [...] is terminated or revoked sooner. PERFORMED BY: [place] [address] PATHOLOGIST [employer] OFFICER JORDAN RODRIGUEZ M.D. Normal [facility] Comment on above: Performed By: #### C OVID-19 LIAT, SOFIANEG #### [address] COVID-19 Detected/Not Detect edon 08-18-2020 SARS-CoV-2 (COVID-19) RNA SUDHA+non-probe Ql (Nph) Not detected Not Detecte [facility] Comment on above: This is a duplicate RP2.1 COVID (PCR) result to be used for statistical tracking purpose only. COVID-19 SOFIAon 08-18-2020 SARS-CoV+SARS-CoV-2 (COVID-19) Ag IA.rapid Ql (Resp) Negative Negative [facility] Comment on above: This is a duplicate Liat SARS Antigen (AGUSTINA) result to be used for statistical tracking purpose only. Coagulation Profileon 2020 aPTT Coag (Bld) [Time] 36.9 s High 25.1-36.5 [facility] Comment on above: Order Comment: REDRA W FOR SHORT DRAW AND HEMOLYSIS Result Comment: PERF ORMED BY: [place] [address] PATHOLOGIST [employer] OFFICER JORDAN RODRIGUEZ M.D. Performed By: #### P P #### [facility] [address] [place] [address] INR Coag (PPP) [Relative time] 1.0 {INR} [facility] Comment on above: Order Comment: REDRA W [...] 4.5 Performed By: #### P P #### [address] PT Coag (PPP) [Time] 11.7 s Normal 9.0-12.9 [facility] Comment on above: Order Comment: REDRA W FOR SHORT DRAW AND HEMOLYSIS Performed By: #### P P #### [address] Complete Blood Count Auto Di ffon 08-18-2020 Basophils (Bld) [#/Vol] 0.0 10*3/uL Normal 0.0-0.2 [facility] Comment on above: Result Comment: PERF ORMED BY: [place] [address] PATHOLOGIST [employer] OFFICER JORDAN RODRIGUEZ M.D. Performed By: #### C MP, CBC, MG, TROP, BNP #### [address] Basophils/100 WBC (Bld) 0.3 % Normal . [facility] Comment on above: Performed By: #### C MP, CBC, MG, TROP, BNP #### [address] Eosinophils (Bld) [#/Vol] 0.5 10*3/uL High 0.0-0.45 [facility] Comment on above: Performed By: #### C MP, CBC, MG, TROP, BNP #### [address] Eosinophils/100 WBC (Bld) 3.4 % Normal . [facility] Comment on above: Performed By: #### C MP, CBC, MG, TROP, BNP #### [address] Erythrocyte distribution width (RBC) [Ratio] 16.3 % High 12.0-14.8 [facility] Comment on above: Performed By: #### C MP, CBC, MG, TROP, BNP #### [address] Hematocrit (Bld) [Volume fraction] 36.1 % Low 38.8-50.0 [facility] Comment on above: Performed By: #### C MP, CBC, MG, TROP, BNP #### [address] Hemoglobin (Bld) [Mass/Vol] 11.8 g/dL Low 13.0-17.0 [facility] Comment on above: Performed By: #### C MP, CBC, MG, TROP, BNP #### [address] Lymphocytes (Bld) [#/Vol] 0.9 10*3/uL Low 1.00-4.8 [facility] Comment on above: Performed By: #### C MP, CBC, MG, TROP, BNP #### [address] Lymphocytes/100 WBC (Bld) 6.1 % Normal . [facility] Comment on above: Performed By: #### C MP, CBC, MG, TROP, BNP #### [address] MCH (RBC) [Entitic mass] 27.2 pg Low 27.5-35.2 [facility] Comment on above: Performed By: #### C MP, CBC, MG, TROP, BNP #### [address] MCV (RBC) [Entitic vol] 83.5 fL Normal 83.5-101 [facility] Comment on above: Performed By: #### C MP, CBC, MG, TROP, BNP #### [address] Mean Corpuscular HGB Conc 32.6 g/dL Normal 32.5-35.6 [facility] Comment on above: Performed By: #### C MP, CBC, MG, TROP, BNP #### [address] Monocytes (Bld) [#/Vol] 1.5 10*3/uL High 0.0-0.8 [facility] Comment on above: Performed By: #### C MP, CBC, MG, TROP, BNP #### [address] Monocytes/100 WBC (Bld) 10.1 % Normal . [facility] Comment on above: Performed By: #### C MP, CBC, MG, TROP, BNP #### [address] Neutrophils (Bld) [#/Vol] 12.3 10*3/uL High 1.8-7.7 [facility] Comment on above: Performed By: #### C MP, CBC, MG, TROP, BNP #### [address] Neutrophils/100 WBC (Bld) 80.1 % Normal . [facility] Comment on above: Performed By: #### C MP, CBC, MG, TROP, BNP #### [address] Nucleated RBC/100 WBC (Bld) [Ratio] 0.1 % Normal 0-0.5 [facility] Comment on above: Performed By: #### C MP, CBC, MG, TROP, BNP #### [address] Platelet mean volume (Bld) [Entitic vol] 7.3 fL Normal 6.6-10.1 [facility] Comment on above: Performed By: #### C MP, CBC, MG, TROP, BNP #### [place] [address] [place] Platelets (Bld) [#/Vol] 249 10*3/uL Normal 150-450 [facility] Comment on above: Performed By: #### C MP, CBC, MG, TROP, BNP #### [place] [address] [place] RBC (Bld) [#/Vol] 4.32 10*6/uL Normal 3.90-5.60 [facility] Comment on above: Performed By: #### C MP, CBC, MG, TROP, BNP #### [address] WBC (Bld) [#/Vol] 15.3 10*3/uL High 4.5-11.0 [facility] Comment on above: Performed By: #### C MP, CBC, MG, TROP, BNP #### [address] Comprehensive Metabolic Pane babatunde 08-18-2020 Albumin [Mass/Vol] 2.7 g/dL Low 3.2-5.5 [facility] Comment on above: Performed By: #### C MP, CBC, MG, TROP, BNP #### [address] Albumin/Globulin [Mass ratio] 0.6 {ratio} Normal [facility] Comment on above: Performed By: #### C MP, CBC, MG, TROP, BNP #### [address] ALP [Catalytic activity/Vol] 88 U/L Normal 32-92 [facility] Comment on above: Performed By: #### C MP, CBC, MG, TROP, BNP #### [address] ALT [Catalytic activity/Vol] 13 U/L Normal 10-60 [facility] Comment on above: Performed By: #### C MP, CBC, MG, TROP, BNP #### [address] AST [Catalytic activity/Vol] 16 U/L Normal 10- [facility] Comment on above: Performed By: #### C MP, CBC, MG, TROP, BNP #### [address] Bilirubin [Mass/Vol] 0.7 mg/dL Normal 0.3-1.2 [facility] Comment on above: Performed By: #### C MP, CBC, MG, TROP, BNP #### [address] Calcium [Mass/Vol] 8.9 mg/dL Normal 8.2-10.2 [facility] Comment on above: Performed By: #### C MP, CBC, MG, TROP, BNP #### [address] Chloride [Moles/Vol] 95 mmol/L Normal 95-114 [facility] Comment on above: Performed By: #### C MP, CBC, MG, TROP, BNP #### [address] CO2 [Moles/Vol] 22.6 mmol/L Normal 22.0-30.0 [facility] Comment on above: Performed By: #### C MP, CBC, MG, TROP, BNP #### [address] Creatinine [Mass/Vol] 3.04 mg/dL High 0.64-1.27 [facility] Comment on above: Performed By: #### C MP, CBC, MG, TROP, BNP #### [address] Creatinine Clr Calc Pharmacy 38.57 [facility] Comment on above: Performed By: #### C MP, CBC, MG, TROP, BNP #### [address] Estimated GFR ( Camilla 26 [facility] Comment on above: Result Comment: GFR estimated reference range: According to KDOQI guidelines, <60 ml/min/1.73m2 is sufficient to diagnose a patient with chronic kidney disease. Performed By: #### C MP, CBC, MG, TROP, BNP #### [address] Estimated GFR (Non- Am 21 [facility] Comment on above: Performed By: #### C MP, CBC, MG, TROP, BNP #### [address] [place] [address] [place] Globulin (S) [Mass/Vol] 4.4 g/dL Normal [facility] Comment on above: Performed By: #### C MP, CBC, MG, TROP, BNP #### [address] Glucose [Mass/Vol] 512 mg/dL Off scale high 70-100 [facility] Comment on above: Result Comment: Resu lts called at 1659 on 08/18/20 Random Glucose Reference Range is dependent on time and content of last meal. Glucose of more than 200 mg/dL in a nonstressed, ambulatory subject supports the diagnosis of Diabetes Mellitus. ADA recommended reference range Performed By: #### C MP, CBC, MG, TROP, BNP #### [address] Potassium [Moles/Vol] 4.2 mmol/L Normal 3.5-5.1 [facility] Comment on above: Performed By: #### C MP, CBC, MG, TROP, BNP #### [address] Protein [Mass/Vol] 7.1 g/dL Normal 6.1-7.9 [facility] Comment on above: Performed By: #### C MP, CBC, MG, TROP, BNP #### [address] Sodium [Moles/Vol] 128 mmol/L Low 136-146 [facility] Comment on above: Performed By: #### C MP, CBC, MG, TROP, BNP #### [place] [address] [place] Urea nitrogen [Mass/Vol] 27 mg/dL High 9-23 [facility] Comment on above: Performed By: #### C MP, CBC, MG, TROP, BNP #### [place] [address] [place] Creatinine and Glomerular fi ltration rate.predicted panel (S/P/Bld)on 08-18-2020 Creatinine [Mass/Vol] 3.04 mg/dL 0.64-1.27 [facility] ECG 12 lead ECGon 08-18-2020 ECG 12 lead ECG [facility] [place] [address] Electrocardiograph Report Signed Patient: Rashard Lyman MR#: [id number] : 1960 Acct:[id number] Age/Sex: 60 / M ADM Date: 08/18/20 Loc: Room: [address] [place] [address] Type: ADM IN Attending Dr: Eugene Morel [...] was found Confirmed by ADRIA PABON DO ([id number]) on 08/19/2020 10:02:40 AM Referred By: Electronically Signed By:ADRIA PABON DO Transcribed By: MUS Dictated By: Adria Pabon DO 08/18/20 1539 Signed By: 08/19/20 1002 Normal [facility] Eosinophils Auto (Bld) [#/Vo l]on 08-18-2020 Eosinophils (Bld) [#/Vol] 0.5 10*3/uL 0.0-0.45 [facility] Eosinophils/100 WBC Auto (Bl d)on 08-18-2020 Eosinophils/100 WBC (Bld) 3.4 % [facility] Erythrocyte distribution wid th Auto (RBC) [Ratio]on 08-18-2020 Erythrocyte distribution width (RBC) [Ratio] 16.3 % 12.0-14.8 [facility] Estimated glomerular filtrat ion rate (GFR) non- Americanon 08-18-2020 GFR/1.73 sq M.predicted among non-blacks MDRD (S/P/Bld) [Vol rate/Area] 21 mL/Min [facility] Globulin Calc (S) [Mass/Vol] on 08-18-2020 Globulin (S) [Mass/Vol] 4.4 g/dL [facility] Glucose Glucometer (BldC) [M ass/Vol]on 08-18-2020 Glucose [Mass/Vol] 388 mg/dL [facility] Comment on above: Random Glucose Refer ence Range is dependent on time and content of last meal. Glucose of more than 200 mg/dL in a nonstressed, ambulatory subject supports the diagnosis of Diabetes Mellitus. Glucose Poct Glucometerson 0 08-18-2020 Glucose [Mass/Vol] 388 mg/dL Normal [facility] Comment on above: Result Comment: [place] om Glucose Reference Range is dependent on time and content of last meal. Glucose of more than 200 mg/dL in a nonstressed, ambulatory subject supports the diagnosis of Diabetes Mellitus. PERFORMED BY: [place] [address] PATHOLOGIST [employer] OFFICER JORDAN RODRIGUEZ M.D. Performed By: #### C MP, CBC, MG, TROP, BNP #### [facility] [address] Hematocrit Auto (Bld) [Volum e fraction]on 08-18-2020 Hematocrit (Bld) [Volume fraction] 36.1 % 38.8-50.0 [facility] Laboratory - Chemistry and C hemistry - challengeon 08-18-2020 CO2 [Moles/Vol] 25.7 mmol/L 24.0-29.0 [facility] HCO3 (Bld) [Moles/Vol] 24.3 mmol/L 23.0-29.0 [facility] Magnesium [Mass/Vol] 2.2 mg/dL 1.6-2.6 [facility] Natriuretic peptide B (Bld) [Mass/Vol] 48.0 pg/mL 5-100 [facility] Laboratory - Coagulationon 0 08-18-2020 PT Coag (PPP) [Time] 11.7 s 9.0-12.9 [facility] Laboratory - Hematology and Cell countson 08-18-2020 Nucleated RBC/100 WBC (Bld) [Ratio] 0.1 % 0-0.5 [facility] Lymphocytes Auto (Bld) [#/Vo l]on 08-18-2020 Lymphocytes (Bld) [#/Vol] 0.9 10*3/uL 1.00-4.8 [facility] Lymphocytes/100 WBC Auto (Bl d)on 08-18-2020 Lymphocytes/100 WBC (Bld) 6.1 % [facility] MCH Auto (RBC) [Entitic mass ]on 08-18-2020 MCH (RBC) [Entitic mass] 27.2 pg 27.5-35.2 [facility] MCHC Auto (RBC) [Mass/Vol]on 08-18-2020 MCHC (RBC) [Mass/Vol] 32.6 g/dL 32.5-35.6 [facility] MCV Auto (RBC) [Entitic vol] on 08-18-2020 MCV (RBC) [Entitic vol] 83.5 fL 83.5-101 [facility] Magnesiumon 08-18-2020 Magnesium [Mass/Vol] 2.2 mg/dL Normal 1.6-2.6 [facility] Comment on above: Result Comment: PERF ORMED BY: [place] [address] PATHOLOGIST [employer] OFFICER JORDAN RODRIGUEZ M.D. Performed By: #### C MP, CBC, MG, TROP, BNP #### [address] Monocytes Auto (Bld) [#/Vol] on 08-18-2020 Monocytes (Bld) [#/Vol] 1.5 10*3/uL 0.0-0.8 [facility] Monocytes/100 WBC Auto (Bld) on 08-18-2020 Monocytes/100 WBC (Bld) 10.1 % [facility] Neutrophils Auto (Bld) [#/Vo l]on 08-18-2020 Neutrophils (Bld) [#/Vol] 12.3 10*3/uL 1.8-7.7 [facility] Neutrophils/100 WBC Auto (Bl d)on 04-22-2021 Neutrophils/100 WBC (Bld) 80.1 % [facility] No Panel Informationon 08-18 Respiratory Panel (PCR) [facility] Blood Gas Critical Value See comment [facility] Comment on above: Critical Value fonseca d on: 08/18/2020 at 17:44 Blood Gas Sample Site Venous [facility] FiO2 21 % [facility] Venous Blood Base Excess -1.5 mmol/L -3.0-3.0 [facility] Venous Blood Oxygen Content 4.1 mmol/L 6.6-9.7 [facility] Venous Blood Oxygen Saturation 53.3 % 73.0-76.0 [facility] Venous Blood Partial Pressure CO2 45.2 mm[Hg] 38.0-50.0 [facility] Venous Blood Partial Pressure O2 24.4 mm[Hg] 35.0-45.0 [facility] Venous Blood pH 7.35 7.32-7.43 [facility] Estimated GFR () 26 mL/Min [facility] Comment on above: GFR estimated refere nce range: According to KDOQI guidelines, <60 ml/min/1.73m2 is sufficient to diagnose a patient with chronic kidney disease. Pharmacy Creatinine Clearance (Chem 38.57 [facility] Platelet mean volume Auto (B ld) [Entitic vol]on 08-18-2020 Platelet mean volume (Bld) [Entitic vol] 7.3 fL 6.6-10.1 [facility] Platelet poor plasma interna tional normalized ratio (INR) by coagulation assay (relaton 08-18-2020 INR Coag (PPP) [Relative time] 1.0 {INR} [facility] Comment on above: INR Therapeutic Rang e [...] 08-18-2020 Platelets (Bld) [#/Vol] 249 10*3/uL 150-450 [facility] Protein [Mass/volume] in Ser um or Plasmaon 08-18-2020 Protein [Mass/Vol] 7.1 g/dL 6.1-7.9 [facility] RBC Auto (Bld) [#/Vol]on RBC (Bld) [#/Vol] 4.32 10*6/uL 3.90-5.60 [facility] Respiratory (Upper) Panel, P CRon 08-18-2020 Respiratory (Upper) Panel, PCR Adenovirus Not detected Bordetella parapertussis Not detected Chlamydia pneumoniae Not detected Coronavirus 229E Not detected Coronavirus HKU1 Not detected Coronavirus NL63 Not detected Coronavirus OC43 Not detected COVID19 Blank Space -- COVID19 Disclaimer This test was developed and its performance COVID19 Disclaimer characteristics determined by [employer], COVID19 Disclaimer Disease-2019 during the Public Health [...] sooner. [employer]. and validated at [facility] [place] [address]. This has not been FDA cleared or [...] COVID-19 Detected/Not Detected Not detected PERFORMED BY: [place] [address] PATHOLOGIST [employer] OFFICER OJRDAN RODRIGUEZ M.D. Normal [facility] Comment on above: Performed By: #### C MP, CBC, MG, TROP, BNP #### [address] Serum or plasma alanine gomez otransferase measurement without P-5'-P (enzymatic activion 08-18-2020 ALT No additional P-5'-P [Catalytic activity/Vol] 13 U/L 10-60 [facility] Serum or plasma albumin/glob ulin mass ratioon 08-18-2020 Albumin/Globulin [Mass ratio] 0.6 {ratio} [facility] Serum or plasma alkaline kayode sphatase measurement (enzymatic activity/volume)on 08-18-2020 ALP [Catalytic activity/Vol] 88 U/L 32-92 [facility] Serum or plasma aspartate am inotransferase measurement (enzymatic activity/volume)on 08-18-2020 AST [Catalytic activity/Vol] 16 U/L 10-42 [facility] Serum or plasma calcium joel urement (mass/volume)on 08-18-2020 Calcium [Mass/Vol] 8.9 mg/dL 8.2-10.2 [facility] Serum or plasma cardiac trop onin I measurement (mass/volume)on 08-18-2020 Troponin I.cardiac [Mass/Vol] ng/mL 0-0.02 [facility] Comment on above: HÉCTOR CA Cut off value > or equal to 0.03 ng/mL in conjunction with clinical conditions of myocardial infarction.([email or web address].org/guidelines) Serum or plasma chloride faraz surement (moles/volume)on 08-18-2020 Chloride [Moles/Vol] 95 mmol/L 95-114 [facility] Serum or plasma glucose joel urement (mass/volume)on 08-18-2020 Glucose [Mass/Vol] 512 mg/dL 70-100 [facility] Comment on above: Results calledat 165 9 on 08/18/20 ADA recommended reference rangeRandom Glucose Reference Range is dependent on time and content of last meal. Glucose of more than 200 mg/dL in a nonstressed, ambulatory subject supports the diagnosis of Diabetes Mellitus. Serum or plasma potassium me asurement (moles/volume)on 08-18-2020 Potassium [Moles/Vol] 4.2 mmol/L 3.5-5.1 [facility] Serum or plasma sodium measu rement (moles/volume)on 08-18-2020 Sodium [Moles/Vol] 128 mmol/L 136-146 [facility] Serum or plasma total biliru bin measurement (mass/volume)on 08-18-2020 Bilirubin [Mass/Vol] 0.7 mg/dL 0.3-1.2 [facility] Serum or plasma total carbon dioxide measurement (moles/volume)on 08-18-2020 CO2 [Moles/Vol] 22.6 mmol/L 22.0-30.0 [facility] Serum or plasma urea nitroge n measurement (mass/volume)on 08-18-2020 Urea nitrogen [Mass/Vol] 27 mg/dL 9-23 [facility] Liat Ag Negativeon 08-19-19 21 Liat Ag Negative Negative Normal Negative [facility] Comment on above: Result Comment: This is a duplicate Liat SARS Antigen (AGUSTINA) result to be used for statistical tracking purpose only. PERFORMED BY: [place] [address] PATHOLOGIST [employer] JORDAN RODRIGUEZ M.D. Performed By: #### C OVID-19 LIAT, SOFIANEG #### [address] Troponin I(TnI)on 08-18-2020 Troponin I.cardiac [Mass/Vol] ng/mL Normal 0-0.02 [facility] Comment on above: Result Comment: HÉCTOR CA Cut off value > or equal to 0.03 ng/mL in conjunction with clinical conditions of myocardial infarction. (www.escardio.org/guidelines) PERFORMED BY: [place] [address] PATHOLOGIST [employer] JORDAN RODRIGUEZ M.D. Performed By: #### C MP, CBC, MG, TROP, BNP #### [address] Venous Blood Gason CO2 [Moles/Vol] 25.7 mmol/L Normal 24.0-29.0 [facility] Comment on above: Performed By: #### V BG #### Point of Care testing , HCO3 (Bld) [Moles/Vol] 24.3 mmol/L Normal 23.0-29.0 [facility] Comment on above: Performed By: #### V BG #### Point of Care testing , Respiratory Critical Normal [facility] Comment on above: Result Comment: Crit ical Value called on: 08/18/2020 at 17:44 PERFORMED BY: [place] [address] PATHOLOGIST [employer] JORDAN RODRIGUEZ M.D. Performed By: #### V BG #### Point of Care testing , VBG Base Excess -1.5 mmol/L Normal -3.0-3.0 [facility] Comment on above: Performed By: #### V BG #### Point of Care testing , VBG Draw Site Venous Normal [facility] Comment on above: Performed By: #### V BG #### Point of Care testing , VBG Frac Inspired O2 21 % Normal [facility] Comment on above: Performed By: #### V BG #### Point of Care testing , VBG O2 Content 4.1 mmol/L Low 6.6-9.7 [facility] Comment on above: Performed By: #### V BG #### Point of Care testing , VBG Oxygen Saturation 53.3 % Off scale low 73.0-76.0 [facility] Comment on above: Performed By: #### V BG #### Point of Care testing , VBG PCO2 45.2 mm[Hg] Normal 38.0-50.0 [facility] Comment on above: Performed By: #### V BG #### Point of Care testing , VBG PH Venous PH 7.35 Normal 7.32-7.43 [facility] Comment on above: Performed By: #### V BG #### Point of Care testing , VBG PO2 24.4 mm[Hg] Low 35.0-45.0 [facility] Comment on above: Performed By: #### V BG #### Point of Care testing , XR chest 1V portableon 08-18 XR chest 1V portable [facility] [place] [address] XRay Report Signed Patient: Rashard Lyman MR#: [id number] : 1960 Acct:[id number] Age/Sex: 60 / M ADM Date: 08/18/20 Loc: ER Room: Type: [facility] ER Attending Dr: Ordering Provider: Mariana Basilio [...] Chitra Brantley M.D.08/18/2020 4:24 PM Dictation Location: [place] [address] Transcribed By: JU 08/18/201623 Dictated By: Chitra Brantley MD 08/18/201622 Signed By: 08/18/201623 [facility] CBC COMPLETE BLOOD COUNTon 0 3-26-2021 Erythrocyte distribution width (RBC) [Ratio] 15.0 % Normal 11.5-15.0 [facility] Comment on above: Order Comment: No: D o not add to previous draw Performed By: #### 8 [id number] #### [facility] [address] [place] [address], [facility] Hematocrit (Bld) [Volume fraction] 32.4 % Low 39.0-50.0 [facility] Comment on above: Order Comment: No: D o not add to previous draw Performed By: #### 8 [id number] #### [facility] [address] [place] [address], [facility] Hemoglobin (Bld) [Mass/Vol] 9.5 g/dL Low 13.0-17.0 [facility] Comment on above: Order Comment: No: D o not add to previous draw Performed By: #### 8 [id number] #### [facility] [address] [place] [address], [facility] MCH (RBC) [Entitic mass] 26.7 pg Low 27.0-33.0 [facility] Comment on above: Order Comment: No: D o not add to previous draw Performed By: #### 8 [id number] #### [facility] [address] [place] [address], [facility] MCHC (RBC) [Mass/Vol] 29.3 g/dL Low 32.0-35.0 [facility] Comment on above: Order Comment: No: D o not add to previous draw Performed By: #### 8 [id number] #### [facility] [address] [place] [id number], [facility] MCV (RBC) [Entitic vol] 91.0 fL Normal 82.0-98.0 [facility] Comment on above: Order Comment: No: D o not add to previous draw Performed By: #### 8 [id number] #### [facility] [address] Nucleated RBC/100 WBC (Bld) [Ratio] 0 % Normal 0-0 [facility] Comment on above: Order Comment: No: D o not add to previous draw Performed By: #### 8 [id number] #### [facility] [address] [place] [id number], [facility] PLAT CNT 276 10*3/uL Normal 150-400 [facility] Comment on above: Order Comment: No: D o not add to previous draw Performed By: #### 8 [id number] #### [facility] [address] [place] [address], [facility] RBC (Bld) [#/Vol] 3.56 10*6/uL Low 4.20-5.70 [facility] Comment on above: Order Comment: No: D o not add to previous draw Performed By: #### 8 [id number] #### [facility] [address] [place] [address], [facility] WBC (Bld) [#/Vol] 8.61 10*3/uL Normal 4.00-10.60 [facility] Comment on above: Order Comment: No: D o not add to previous draw Performed By: #### 8 [id number] #### [facility] [address] [place] [address], [facility] COMP METABOLIC PANELon 07-22 Albumin [Mass/Vol] 2.7 g/dL Low 3.5-5.7 [facility] Comment on above: Order Comment: No: D o not add to previous draw Performed By: #### 8 [id number] #### [facility] [address] [place] [id number], [facility] ALKALINE PHOSPH 70 IU/L Normal 34-104 [facility] Comment on above: Order Comment: No: D o not add to previous draw Performed By: #### 8 [id number] #### [facility] [address] [place] [address], [facility] ALT [Catalytic activity/Vol] 4 U/L Low 7-52 [facility] Comment on above: Order Comment: No: D o not add to previous draw Performed By: #### 8 [id number] #### [facility] [address] [place] [address], [place] AST [Catalytic activity/Vol] 15 U/L Normal 13-39 [facility] Comment on above: Order Comment: No: D o not add to previous draw Performed By: #### 8 [id number] #### [facility] [address] [place] [address], [place] Bilirubin [Mass/Vol] 0.2 mg/dL Low 0.3-1.0 [facility] Comment on above: Order Comment: No: D o not add to previous draw Performed By: #### 8 [id number] #### [facility] [address] [place] [address], [place] Calcium [Mass/Vol] 8.9 mg/dL Normal 8.6-10.3 [facility] Comment on above: Order Comment: No: D o not add to previous draw Performed By: #### 8 [id number] #### [facility] [address] [place] [address], [place] Chloride [Moles/Vol] 109 mmol/L High 98-107 [facility] Comment on above: Order Comment: No: D o not add to previous draw Performed By: #### 8 [id number] #### [facility] [address] [place] [address], [place] CO2 [Moles/Vol] 24 mmol/L Normal 21-31 [facility] Comment on above: Order Comment: No: D o not add to previous draw Performed By: #### 8 [id number] #### [facility] [address] [place] [address], [place] Creatinine [Mass/Vol] 3.39 mg/dL High 0.70-1.30 [facility] Comment on above: Order Comment: No: D o not add to previous draw Performed By: #### 8 [id number] #### [facility] [address] [place] [address], [place] eGFR- 23 ml/min/1.73sq m Abnormal >60 [facility] Comment on above: Order Comment: No: D o not add to previous draw Performed By: #### 8 5499 #### [facility] [address] [place] [address], [place] eGFR- non- 19 ml/min/1.73sq m Abnormal >60 [facility] Comment on above: Order Comment: No: D o not add to previous draw Performed By: #### 8 [id number] #### [facility] [address] [place] [address], [place] Glucose [Mass/Vol] 90 mg/dL Normal 70-100 [facility] Comment on above: Order Comment: No: D o not add to previous draw Performed By: #### 8 5499 #### [facility] [address] [place] [address], [place] Potassium [Moles/Vol] 4.4 mmol/L Normal 3.5-5.1 [facility] Comment on above: Order Comment: No: D o not add to previous draw Performed By: #### 8 [id number] #### [facility] [address] [place] [address], [place] Protein [Mass/Vol] 5.9 g/dL Low 6.0-8.3 [facility] Comment on above: Order Comment: No: D o not add to previous draw Performed By: #### 8 [id number] #### [facility] [address] [place] [address], [place] Sodium [Moles/Vol] 140 mmol/L Normal 136-145 [facility] Comment on above: Order Comment: No: D o not add to previous draw Performed By: #### 8 [id number] #### [facility] [address] [place] [address], [place] Urea nitrogen [Mass/Vol] 35 mg/dL High 7-25 [facility] Comment on above: Order Comment: No: D o not add to previous draw Performed By: #### 8 [id number] #### [facility] [address] [place] [address], [place] POC GLUCOSE LABon 07-22-2020 Glucose [Mass/Vol] 192 mg/dL High 70-100 [facility] Comment on above: Performed By: #### 8 [id number] #### [facility] [address] [place] [address], [place] Glucose [Mass/Vol] 95 mg/dL Normal 70-100 [facility] Comment on above: Performed By: #### 5 7307, [address] #### [facility] [address] [place] [address], [place] Glucose [Mass/Vol] 123 mg/dL High 70-100 [facility] Comment on above: Performed By: #### 8 5499 ####[facility] [place] [address], [facility] ARTERIAL BLOOD GAS WITH ICAo n 07-21-2020 BASE EXCESS -2 mmol/L Normal -2-3 [facility] Comment on above: Performed By: #### 8 [id number] #### [facility] [address] [place] [address], [place] [employer] FOCUS Normal [facility] Comment on above: Performed By: #### 8 [id number] #### [facility] [address] [place] [address], [place] HCO3 (Bld) [Moles/Vol] 24 mmol/L Normal 21-28 [facility] Comment on above: Performed By: #### 8 [id number] #### [facility] [address] [place] [address], [place] IONIZED CALCIUM 1.25 mmol/L Normal 1.13-1.32 [facility] Comment on above: Performed By: #### 8 [id number] #### [facility] [address] [place] [address], [facility] LPM 4.0 LPM Normal [facility] Comment on above: Performed By: #### 8 [id number] #### [facility] [address] [place] [address], [facility] MODALITY BIPAP Normal [facility] Comment on above: Performed By: #### 8 [id number] #### [facility] [address] [place] [address], [place] Oxygen (Bld) [Partial pressure] 91 mm[Hg] Normal 83-108 [facility] Comment on above: Performed By: #### 8 [id number] #### [facility] [address] [place] [address], [place] Oxygen saturation in Blood 95.9 % Normal 94.0-97.0 [facility] Comment on above: Performed By: #### 8 [id number] #### [facility] [address] [place] [address], [place] PCO2 47 mmHg High 35-45 [facility] Comment on above: Performed By: #### 8 5499 #### [facility] [address] [place] [address], [place] PEEP 8.0 CMH20 Normal [facility] Comment on above: Performed By: #### 8 5499 #### [facility] [address] [place] [address], [place] pH (Bld) 7.32 [pH] Low 7.35-7.45 [facility] Comment on above: Performed By: #### 8 5499 #### [facility] [address] [place] [address], [place] PRESSURE SUPPORT 16 Normal [facility] Comment on above: Performed By: #### 8 5499 #### [facility] [address] [place] [address], [place] BASE EXCESS -3 mmol/L Low -2-3 [facility] Comment on above: Performed By: #### 3 8 #### [facility] [address] [place] [address], [place] [employer] NASAL CANNULA Normal [facility] Comment on above: Performed By: #### 3 8 #### [facility] [address] [place] [address], [place] HCO3 (Bld) [Moles/Vol] 25 mmol/L Normal 21-28 [facility] Comment on above: Performed By: #### 3 8 #### [facility] [address] [place] [address], [place] IONIZED CALCIUM 1.26 mmol/L Normal 1.13-1.32 [facility] Comment on above: Performed By: #### 3 8 #### [facility] [address] [place] [address], [place] LPM 2.0 LPM Normal [facility] Comment on above: Performed By: #### 3 8 #### [facility] [address] [place] [address], [place] Oxygen (Bld) [Partial pressure] 92 mm[Hg] Normal 83-108 [facility] Comment on above: Performed By: #### 3 8 #### [facility] [address] [place] [address], [place] Oxygen saturation in Blood 95.7 % Normal 94.0-97.0 [facility] Comment on above: Performed By: #### 3 8 #### [facility] [address] [place] [address], [place] PCO2 54 mmHg High 35-45 [facility] Comment on above: Performed By: #### 3 8 #### [facility] [address] [place] [address], [facility] pH (Bld) 7.27 [pH] Low 7.35-7.45 [facility] Comment on above: Performed By: #### 3 8 #### [facility] [address] [place] [address], [facility] BASIC METABOLIC PANELon 03-2 Calcium [Mass/Vol] 9.0 mg/dL Normal 8.6-10.3 [facility] Comment on above: Order Comment: No: D o not add to previous drawPt not in room rn will return when back. Performed By: #### 3 1943 #### [facility] [address] [place] [address], [facility] Chloride [Moles/Vol] 106 mmol/L Normal 98-107 [facility] Comment on above: Order Comment: No: D o not add to previous drawPt not in room rn will return when back. Performed By: #### 3 1943 #### [facility] [address] [place] [address], [facility] CO2 [Moles/Vol] 25 mmol/L Normal 21-31 [facility] Comment on above: Order Comment: No: D o not add to previous drawPt not in room rn will return when back. Performed By: #### 3 1943 #### [facility] [address] [place] [address], [facility] Creatinine [Mass/Vol] 3.75 mg/dL High 0.70-1.30 [facility] Comment on above: Order Comment: No: D o not add to previous drawPt not in room rn will return when back. Performed By: #### 3 1943 #### [facility] [address] [place] [address], [facility] eGFR- 20 ml/min/1.73sq m Abnormal >60 [facility] Comment on above: Order Comment: No: D o not add to previous drawPt not in room rn will return when back. Performed By: #### 3 1943 #### [facility] [address] [place] [address], [facility] eGFR- non- 17 ml/min/1.73sq m Abnormal >60 [facility] Comment on above: Order Comment: No: D o not add to previous drawPt not in room rn will return when back. Performed By: #### 3 1943 #### [facility] [address] [place] [address], [facility] Glucose [Mass/Vol] 132 mg/dL High 70-100 [facility] Comment on above: Order Comment: No: D o not add to previous drawPt not in room rn will return when back. Performed By: #### 3 1943 #### [facility] [address] [place] [address], [facility] Potassium [Moles/Vol] 5.0 mmol/L Normal 3.5-5.1 [facility] Comment on above: Order Comment: No: D o not add to previous drawPt not in room rn will return when back. Performed By: #### 3 1943 #### [facility] [address] [place] [address], [facility] Sodium [Moles/Vol] 138 mmol/L Normal 136-145 [facility] Comment on above: Order Comment: No: D o not add to previous drawPt not in room rn will return when back. Performed By: #### 3 1943 #### [facility] [address] [place] [address], [facility] Urea nitrogen [Mass/Vol] 37 mg/dL High 7-25 [facility] Comment on above: Order Comment: No: D o not add to previous drawPt not in room rn will return when back. Performed By: #### 3 1943 #### [facility] [address] [place] [address], [facility] CBC COMPLETE BLOOD COUNTon 0 07-21-2020 Erythrocyte distribution width (RBC) [Ratio] 15.0 % Normal 11.5-15.0 [facility] Comment on above: Order Comment: No: D o not add to previous drawPt not in room rn will return when back. Performed By: #### 8 [id number] #### [facility] [address] [place] [address], [facility] Hematocrit (Bld) [Volume fraction] 33.9 % Low 39.0-50.0 [facility] Comment on above: Order Comment: No: D o not add to previous drawPt not in room rn will return when back. Performed By: #### 8 [id number] #### [facility] [address] [place] [address], [facility] Hemoglobin (Bld) [Mass/Vol] 9.9 g/dL Low 13.0-17.0 [facility] Comment on above: Order Comment: No: D o not add to previous drawPt not in room rn will return when back. Performed By: #### 8 [id number] #### [facility] [address] [place] [address], [facility] MCH (RBC) [Entitic mass] 26.9 pg Low 27.0-33.0 [facility] Comment on above: Order Comment: No: D o not add to previous drawPt not in room rn will return when back. Performed By: #### 8 [id number] #### [facility] [address] [place] [address], [facility] MCHC (RBC) [Mass/Vol] 29.2 g/dL Low 32.0-35.0 [facility] Comment on above: Order Comment: No: D o not add to previous drawPt not in room rn will return when back. Performed By: #### 8 [id number] #### [facility] [address] [place] [address], [facility] MCV (RBC) [Entitic vol] 92.1 fL Normal 82.0-98.0 [facility] Comment on above: Order Comment: No: D o not add to previous drawPt not in room rn will return when back. Performed By: #### 8 [id number] #### [facility] [address] [facility]. [address] Nucleated RBC/100 WBC (Bld) [Ratio] 0 % Normal 0-0 [facility] Comment on above: Order Comment: No: D o not add to previous drawPt not in room rn will return when back. Performed By: #### 8 [id number] #### [facility] [address] [facility] [place] [address], [facility] PLAT CNT 288 10*3/uL Normal 150-400 [facility] Comment on above: Order Comment: No: D o not add to previous drawPt not in room rn will return when back. Performed By: #### 8 [id number] #### [facility] [address] [place] [address], [facility] RBC (Bld) [#/Vol] 3.68 10*6/uL Low 4.20-5.70 [facility] Comment on above: Order Comment: No: D o not add to previous drawPt not in room rn will return when back. Performed By: #### 8 [id number] #### [facility] [address] [facility] [place] [address], [facility] WBC (Bld) [#/Vol] 9.51 10*3/uL Normal 4.00-10.60 [facility] Comment on above: Order Comment: No: D o not add to previous drawPt not in room rn will return when back. Performed By: #### 8 [id number] #### [facility] [address] [address] CT CHEST WO CONTRASTon 07-21 CT CHEST WO CONTRAST [facility] Department of Radiology [address] [place] [address] [id number] Patient Name: RASHARD LYMAN : 1960 Sex: M Age: Race: White Pt. Location: [address] [place] [address] Patient Status: I Ordered Date: 07/21/2020 6:00:00 [...] pneumonia. Electronically signed: Manuel Saldaña. Transcribed by: [email or web address], User Resident: Electronically Signed by: MANUEL SALDAÑA @ 07/21/2020 08:38 AM Normal [facility] Comment on above: Order Comment: Left Peural Effusion POC GLUCOSE LABon 07-21-2020 Glucose [Mass/Vol] 134 mg/dL High 70-100 [facility] Comment on above: Performed By: #### 5 0103 #### [facility] [address] [place] [address], [place] Glucose [Mass/Vol] 88 mg/dL Normal 70-100 [facility] Comment on above: Performed By: #### 8 5499 #### [facility] [address] [place] [address], [place] Glucose [Mass/Vol] 110 mg/dL High 70-100 [facility] Comment on above: Performed By: #### 8 5499 #### [facility] [address] [place] [address], [place] Glucose [Mass/Vol] 118 mg/dL High 70-100 [facility] Comment on above: Performed By: #### 5 7307, 54509 #### [facility] [address] [place] [address], [place] Glucose [Mass/Vol] 137 mg/dL High 70-100 [facility] Comment on above: Performed By: #### 5 7307, 62456 #### [facility] [address] [place] [address], [place] BASIC METABOLIC PANELon 06-28 Calcium [Mass/Vol] 8.4 mg/dL Low 8.6-10.3 [facility] Comment on above: Order Comment: No: D o not add to previous draw Performed By: #### 8 5499 #### [facility] [address] [place] [address], [place] Chloride [Moles/Vol] 107 mmol/L Normal 98-107 [facility] Comment on above: Order Comment: No: D o not add to previous draw Performed By: #### 8 5499 #### [facility] [address] [place] [address], [place] CO2 [Moles/Vol] 23 mmol/L Normal 21-31 [facility] Comment on above: Order Comment: No: D o not add to previous draw Performed By: #### 8 5499 #### [facility] [address] [place] [address], [place] Creatinine [Mass/Vol] 3.95 mg/dL High 0.70-1.30 [facility] Comment on above: Order Comment: No: D o not add to previous draw Performed By: #### 8 5499 #### [facility] [address] [place] [address], [facility] eGFR- 19 ml/min/1.73sq m Abnormal >60 [facility] Comment on above: Order Comment: No: D o not add to previous draw Performed By: #### 8 5499 #### [facility] [address] [place] [address], [place] eGFR- non- 16 ml/min/1.73sq m Abnormal >60 [facility] Comment on above: Order Comment: No: D o not add to previous draw Performed By: #### 8 5499 #### [facility] [address] [place] [address], [place] Glucose [Mass/Vol] 110 mg/dL High 70-100 [facility] Comment on above: Order Comment: No: D o not add to previous draw Performed By: #### 8 5499 #### [facility] [address] Potassium [Moles/Vol] 4.9 mmol/L Normal 3.5-5.1 [facility] Comment on above: Order Comment: No: D o not add to previous draw Performed By: #### 8 5499 #### [facility] [address] Sodium [Moles/Vol] 137 mmol/L Normal 136-145 [facility] Comment on above: Order Comment: No: D o not add to previous draw Performed By: #### 8 5499 #### [facility] [address] [facility]. [address] Urea nitrogen [Mass/Vol] 37 mg/dL High 7-25 [facility] Comment on above: Order Comment: No: D o not add to previous draw Performed By: #### 8 5499 #### [facility] [address] [facility] CBC W/DIFFon 07-20-2020 ABS IMM GRANS 0.1 10*3/uL Normal 0.0-0.2 [facility] Comment on above: Order Comment: No: D o not add to previous draw Performed By: #### 8 5499 #### [facility] [address] [facility]. [address] ABS NEUTROPHILS 5.9 10*3/uL Normal 1.6-7.6 [facility] Comment on above: Order Comment: No: D o not add to previous draw Performed By: #### 8 5499 #### [facility] [address] [facility] [place] [address], [facility] Basophils (Bld) [#/Vol] 0.1 10*3/uL Normal 0.0-0.2 [facility] Comment on above: Order Comment: No: D o not add to previous draw Performed By: #### 8 5499 #### [facility] [address] [facility] [place] [address], [facility] Basophils/100 WBC (Bld) 1.0 % Normal 0.0-1.0 [facility] Comment on above: Order Comment: No: D o not add to previous draw Performed By: #### 8 [id number] #### [facility] [address] [place] [id number], [facility] Eosinophils (Bld) [#/Vol] 0.4 10*3/uL Normal 0.0-0.5 [facility] Comment on above: Order Comment: No: D o not add to previous draw Performed By: #### 8 [id number] #### [facility] [address] [facility] [place] [address], [facility] Eosinophils/100 WBC (Bld) 5.1 % Normal 0.0-6.0 [facility] Comment on above: Order Comment: No: D o not add to previous draw Performed By: #### 8 [id number] #### [facility] [address] [place] [address], [facility] Erythrocyte distribution width (RBC) [Ratio] 15.4 % High 11.5-15.0 [facility] Comment on above: Order Comment: No: D o not add to previous draw Performed By: #### 8 [id number] #### [facility] [address] [facility] [place] [address], [facility] Hematocrit (Bld) [Volume fraction] 35.7 % Low 39.0-50.0 [facility] Comment on above: Order Comment: No: D o not add to previous draw Performed By: #### 8 5499 #### [facility] [address] [place] [address], [facility] Hemoglobin (Bld) [Mass/Vol] 10.3 g/dL Low 13.0-17.0 [facility] Comment on above: Order Comment: No: D o not add to previous draw Performed By: #### 8 [id number] #### [facility] [address] [facility] [place] [address], [facility] IMM PLATELET FRAC 0.4 % Low 0.8-6.3 [facility] Comment on above: Order Comment: No: D o not add to previous draw Performed By: #### 8 5499 #### [facility] [address] [place] [address], [facility] IMMATURE GRANS 1.1 % High 0.0-1.0 [facility] Comment on above: Order Comment: No: D o not add to previous draw Performed By: #### 8 5499 #### [facility] [address] [facility] [facility] [place] [address], [facility] Lymphocytes (Bld) [#/Vol] 0.8 10*3/uL Low 1.2-4.0 [facility] Comment on above: Order Comment: No: D o not add to previous draw Performed By: #### 8 5499 #### [facility] [address] [facility] [place] [address], [facility] Lymphocytes/100 WBC (Bld) 9.3 % Low 20.0-45.0 [facility] Comment on above: Order Comment: No: D o not add to previous draw Performed By: #### 8 [id number] #### [facility] [address] [place] [address], [facility] MCH (RBC) [Entitic mass] 27.4 pg Normal 27.0-33.0 [facility] Comment on above: Order Comment: No: D o not add to previous draw Performed By: #### 8 [id number] #### [facility] [address] [place] [id number], [facility] MCHC (RBC) [Mass/Vol] 28.9 g/dL Low 32.0-35.0 [facility] Comment on above: Order Comment: No: D o not add to previous draw Performed By: #### 8 [id number] #### [facility] [address] [place] [address], [facility] MCV (RBC) [Entitic vol] 94.9 fL Normal 82.0-98.0 [facility] Comment on above: Order Comment: No: D o not add to previous draw Performed By: #### 8 5499 #### [facility] [address] [place] [address], [facility] Monocytes (Bld) [#/Vol] 1.1 10*3/uL High 0.1-1.0 [facility] Comment on above: Order Comment: No: D o not add to previous draw Performed By: #### 8 5499 #### [facility] [address] [place] [address], [facility] MONOS 12.9 % High 5.0-12.0 [facility] Comment on above: Order Comment: No: D o not add to previous draw Performed By: #### 8 5499 #### [facility] [address] [place] [address], [facility] Neutrophils/100 WBC (Bld) 70.6 % Normal 40.0-72.0 [facility] Comment on above: Order Comment: No: D o not add to previous draw Performed By: #### 8 [id number] #### [facility] [address] [place] [id number], [facility] Nucleated RBC/100 WBC (Bld) [Ratio] 0 % Normal 0-0 [facility] Comment on above: Order Comment: No: D o not add to previous draw Performed By: #### 8 [id number] #### [facility] [address] [place] [address], [place] PLAT ESTIMATE Normal Normal [facility] Comment on above: Order Comment: No: D o not add to previous draw Result Comment: EDTA smear shows platelet clumping, see platelet estimate Performed By: #### 8 [id number] #### [facility] [address] [place] [address], [facility] RBC (Bld) [#/Vol] 3.76 10*6/uL Low 4.20-5.70 [facility] Comment on above: Order Comment: No: D o not add to previous draw Performed By: #### 8 5499 #### [facility] [address] [facility] [place] [address], [facility] WBC (Bld) [#/Vol] 8.30 10*3/uL Normal 4.00-10.60 [facility] Comment on above: Order Comment: No: D o not add to previous draw Performed By: #### 8 [id number] #### [facility] [address] [facility] [place] [address], [facility] POC GLUCOSE LABon 07-20-2020 Glucose [Mass/Vol] 110 mg/dL High 70-100 [facility] Comment on above: Performed By: #### 5 0103 #### [facility] [address] [facility] [place] [address], [facility] Glucose [Mass/Vol] 124 mg/dL High 70-100 [facility] Comment on above: Performed By: #### 5 0103 #### [facility] [address] [facility] [place] [address], [facility] Glucose [Mass/Vol] 111 mg/dL High 70-100 [facility] Comment on above: Performed By: #### 5 7307, 58[address] #### [facility] [address] [facility] [place] [address], [facility] PORTABLE CHEST 1 VIEWon 06-28 PORTABLE CHEST 1 VIEW [facility] Department of Radiology [address] [place] [phone] Patient Name: RASHARD LYMAN : 1960 Sex: M Age: Race: White Pt. Location: [address] [place] [address] Patient Status: I Ordered Date: 07/20/2020 6:00:00 [...] unchanged Electronically signed: Manuel Saldaña. Transcribed by: [email or web address], User Resident: Electronically Signed by: MANUEL SALDAÑA @ 07/20/2020 09:07 AM Normal [facility] Comment on above: Order Comment: Evalu ate for Effusion BASIC METABOLIC PANELon 06-28 Calcium [Mass/Vol] 8.4 mg/dL Low 8.6-10.3 [facility] Comment on above: Order Comment: No: D o not add to previous draw Performed By: #### 3 1944 #### [facility] [address] [facility] [place] [address], [facility] Chloride [Moles/Vol] 104 mmol/L Normal 98-107 [facility] Comment on above: Order Comment: No: D o not add to previous draw Performed By: #### 3 1943 #### [facility] [address] [place] [address], [place] CO2 [Moles/Vol] 24 mmol/L Normal 21-31 [facility] Comment on above: Order Comment: No: D o not add to previous draw Performed By: #### 3 1943 #### [facility] [address] [place] [address], [place] Creatinine [Mass/Vol] 4.15 mg/dL High 0.70-1.30 [facility] Comment on above: Order Comment: No: D o not add to previous draw Performed By: #### 3 1943 #### [facility] [address] [place] [address], [facility] eGFR- 18 ml/min/1.73sq m Abnormal >60 [facility] Comment on above: Order Comment: No: D o not add to previous draw Performed By: #### 3 1943 #### [facility] [address] [place] [address], [place] eGFR- non- 15 ml/min/1.73sq m Abnormal >60 [facility] Comment on above: Order Comment: No: D o not add to previous draw Performed By: #### 3 1943 #### [facility] [address] [place] [address], [place] Glucose [Mass/Vol] 180 mg/dL High 70-100 [facility] Comment on above: Order Comment: No: D o not add to previous draw Performed By: #### 3 1943 #### [facility] [address] [place] [address], [place] Potassium [Moles/Vol] 4.4 mmol/L Normal 3.5-5.1 [facility] Comment on above: Order Comment: No: D o not add to previous draw Performed By: #### 3 1943 #### [facility] [address] [place] [address], [facility] Sodium [Moles/Vol] 135 mmol/L Low 136-145 [facility] Comment on above: Order Comment: No: D o not add to previous draw Performed By: #### 3 1943 #### [facility] [address] [place] [id number], [facility] Urea nitrogen [Mass/Vol] 37 mg/dL High 7-25 [facility] Comment on above: Order Comment: No: D o not add to previous draw Performed By: #### 3 1943 #### [facility] [address] CBC COMPLETE BLOOD COUNTon 0 - Erythrocyte distribution width (RBC) [Ratio] 14.8 % Normal 11.5-15.0 [facility] Comment on above: Order Comment: No: D o not add to previous draw Performed By: #### 8 [id number] #### [facility] [address] [place] [address], [facility] Hematocrit (Bld) [Volume fraction] 30.9 % Low 39.0-50.0 [facility] Comment on above: Order Comment: No: D o not add to previous draw Performed By: #### 8 5499 #### [facility] [address] [place] [address], [facility] Hemoglobin (Bld) [Mass/Vol] 9.0 g/dL Low 13.0-17.0 [facility] Comment on above: Order Comment: No: D o not add to previous draw Performed By: #### 8 5499 #### [facility] [address] [place] [id number], [facility] MCH (RBC) [Entitic mass] 26.6 pg Low 27.0-33.0 [facility] Comment on above: Order Comment: No: D o not add to previous draw Performed By: #### 8 5499 #### [facility] [address] [place] [address], [facility] MCHC (RBC) [Mass/Vol] 29.1 g/dL Low 32.0-35.0 [facility] Comment on above: Order Comment: No: D o not add to previous draw Performed By: #### 8 5499 #### [facility] [address] [place] [id number], [facility] MCV (RBC) [Entitic vol] 91.4 fL Normal 82.0-98.0 [facility] Comment on above: Order Comment: No: D o not add to previous draw Performed By: #### 8 5499 #### [facility] [address] [place] [id number], [facility] Nucleated RBC/100 WBC (Bld) [Ratio] 0 % Normal 0-0 [facility] Comment on above: Order Comment: No: D o not add to previous draw Performed By: #### 8 5499 #### [facility] [address] [place] [address], [place] PLAT CNT 279 10*3/uL Normal 150-400 [facility] Comment on above: Order Comment: No: D o not add to previous draw Performed By: #### 8 5499 #### [facility] [address] [place] [id number], [facility] RBC (Bld) [#/Vol] 3.38 10*6/uL Low 4.20-5.70 [facility] Comment on above: Order Comment: No: D o not add to previous draw Performed By: #### 8 5499 #### [facility] [address] [place] [address], [place] WBC (Bld) [#/Vol] 6.73 10*3/uL Normal 4.00-10.60 [facility] Comment on above: Order Comment: No: D o not add to previous draw Performed By: #### 8 5499 #### [facility] [address] [place], [place] [address] Operative Reporton Operative Report MR#: [id number] I [facility] Pt. Name: Rashard Lyman Room #: 3AB [id number] Discharge Date: Birthdate: 1960 OPERATIVE REPORT DATE OF SURGERY: 07/19/2020 SURGEON: Nima Wynne MD Operative Note Medical Thoracoscopy, lysis of adhesions, pleural biopsy Procedure Date: 07/19/2020 Procedure: Medical Thoracoscopy, pleural biopsies, lysis of adhesions, and chest tube placement Preoperative Diagnosis: Loculated pleural effusion Post-operative Diagnosis: same Surgeons: Nima Wynne MD Learning And Development Intern: Davis Pham MD Type of Anesthesia: MAC [...] Wynne MD Date Trans: 07/19/2020 02:43 P/ [id number] cc: Jose Juarez D.O. [facility]3 [facility] [address] Normal [facility] POC GLUCOSE LABon 07-19-2020 Glucose [Mass/Vol] 219 mg/dL High 70-100 [facility] Comment on above: Performed By: #### 5 7307, 66540 #### [facility] [address] [place] [address], [place] Glucose [Mass/Vol] 152 mg/dL High 70-100 [facility] Comment on above: Performed By: #### 5 7307, 85645 #### [facility] [address] [place] [address], [place] Glucose [Mass/Vol] 183 mg/dL High 70-100 [facility] Comment on above: Performed By: #### 5 0103 #### [facility] [address] [place] [address], [place] Glucose [Mass/Vol] 206 mg/dL High 70-100 [facility] Comment on above: Performed By: #### 8 5499 ####[facility] [place] [address], [facility] Glucose [Mass/Vol] 179 mg/dL High 70-100 [facility] Comment on above: Performed By: #### 5 0103 #### [address] [address], [facility] PORTABLE CHEST 1 VIEWon 06-28 PORTABLE CHEST 1 VIEW [facility] Department of Radiology [address] [place] [phone] Patient Name: RASHARD LYMAN : 1960 Sex: M Age: Race: White Pt. Location: [address] [place] [address] Patient Status: I Ordered Date: 07/19/2020 2:20:00 [...] infiltration Electronically signed: Pedro Baldwin. Transcribed by: [email or web address], User Resident: PEDRO BALDWIN Electronically Signed by: LAURARADHA MIKE @ 07/19/2020 03:03 PM I personally read this/these film(s) with this resident Normal [facility] Comment on above: Order Comment: Check Chest Tube Position BASIC METABOLIC PANELon 06-28 Calcium [Mass/Vol] 8.4 mg/dL Low 8.6-10.3 [facility] Comment on above: Order Comment: No: D o not add to previous draw Performed By: #### 8 [id number] #### [facility] [address] [place] [address], [facility] Chloride [Moles/Vol] 105 mmol/L Normal 98-107 [facility] Comment on above: Order Comment: No: D o not add to previous draw Performed By: #### 8 5499 #### [facility] [address] [place] [address], [place] CO2 [Moles/Vol] 25 mmol/L Normal 21-31 [facility] Comment on above: Order Comment: No: D o not add to previous draw Performed By: #### 8 5499 #### [facility] [address] [place] [address], [place] Creatinine [Mass/Vol] 4.54 mg/dL High 0.70-1.30 [facility] Comment on above: Order Comment: No: D o not add to previous draw Performed By: #### 8 5499 #### [facility] [address] [place] [address], [place] eGFR- 16 ml/min/1.73sq m Abnormal >60 [facility] Comment on above: Order Comment: No: D o not add to previous draw Performed By: #### 8 5499 #### [facility] [address] eGFR- non- 13 ml/min/1.73sq m Abnormal >60 [facility] Comment on above: Order Comment: No: D o not add to previous draw Performed By: #### 8 5499 #### [facility] [address] [place] [address], [facility] Glucose [Mass/Vol] 118 mg/dL High 70-100 [facility] Comment on above: Order Comment: No: D o not add to previous draw Performed By: #### 8 5499 #### [facility] [address] [place] [address], [facility] Potassium [Moles/Vol] 4.5 mmol/L Normal 3.5-5.1 [facility] Comment on above: Order Comment: No: D o not add to previous draw Performed By: #### 8 [id number] #### [facility] [address] [place] [id number], [facility] Sodium [Moles/Vol] 137 mmol/L Normal 136-145 [facility] Comment on above: Order Comment: No: D o not add to previous draw Performed By: #### 8 [id number] #### [facility] [address] [place] [address], [facility] Urea nitrogen [Mass/Vol] 40 mg/dL High 7-25 [facility] Comment on above: Order Comment: No: D o not add to previous draw Performed By: #### 8 [id number] #### [facility] [address] [place] [id number], [facility] CBC W/DIFFon 07-18-2020 ABS IMM GRANS 0.1 10*3/uL Normal 0.0-0.2 [facility] Comment on above: Order Comment: No: D o not add to previous draw Performed By: #### 8 [id number] #### [facility] [address] [place] [address], [place] ABS NEUTROPHILS 5.0 10*3/uL Normal 1.6-7.6 [facility] Comment on above: Order Comment: No: D o not add to previous draw Performed By: #### 8 [id number] #### [facility] [address] [place] [address], [place] Basophils (Bld) [#/Vol] 0.0 10*3/uL Normal 0.0-0.2 [facility] Comment on above: Order Comment: No: D o not add to previous draw Performed By: #### 8 [id number] #### [facility] [address] [place] [address], [facility] Basophils/100 WBC (Bld) 0.4 % Normal 0.0-1.0 [facility] Comment on above: Order Comment: No: D o not add to previous draw Performed By: #### 8 [id number] #### [facility] [address] [place] [address], [place] Eosinophils (Bld) [#/Vol] 0.6 10*3/uL High 0.0-0.5 [facility] Comment on above: Order Comment: No: D o not add to previous draw Performed By: #### 8 [id number] #### [facility] [address] [place] [address], [facility] Eosinophils/100 WBC (Bld) 6.8 % High 0.0-6.0 [facility] Comment on above: Order Comment: No: D o not add to previous draw Performed By: #### 8 [id number] #### [facility] [address] [place] [address], [place] Erythrocyte distribution width (RBC) [Ratio] 14.8 % Normal 11.5-15.0 [facility] Comment on above: Order Comment: No: D o not add to previous draw Performed By: #### 8 [id number] #### [facility] [address] [place] [address], [place] Hematocrit (Bld) [Volume fraction] 31.9 % Low 39.0-50.0 [facility] Comment on above: Order Comment: No: D o not add to previous draw Performed By: #### 8 [id number] #### [facility] [address] [place] [address], [facility] Hemoglobin (Bld) [Mass/Vol] 9.4 g/dL Low 13.0-17.0 [facility] Comment on above: Order Comment: No: D o not add to previous draw Performed By: #### 8 [id number] #### [facility] [address] [place] [address], [facility] IMMATURE GRANS 1.7 % High 0.0-1.0 [facility] Comment on above: Order Comment: No: D o not add to previous draw Performed By: #### 8 [id number] #### [facility] [address] [place] [address], [facility] Lymphocytes (Bld) [#/Vol] 1.2 10*3/uL Normal 1.2-4.0 [facility] Comment on above: Order Comment: No: D o not add to previous draw Performed By: #### 8 [id number] #### [facility] [address] [place] [address], [facility] Lymphocytes/100 WBC (Bld) 14.8 % Low 20.0-45.0 [facility] Comment on above: Order Comment: No: D o not add to previous draw Performed By: #### 8 [id number] #### [facility] [address] [place] [id number], [facility] MCH (RBC) [Entitic mass] 26.9 pg Low 27.0-33.0 [facility] Comment on above: Order Comment: No: D o not add to previous draw Performed By: #### 8 [id number] #### [facility] [address] [place] [id number], [facility] MCHC (RBC) [Mass/Vol] 29.5 g/dL Low 32.0-35.0 [facility] Comment on above: Order Comment: No: D o not add to previous draw Performed By: #### 8 [id number] #### [facility] [address] [place] [address], [facility] MCV (RBC) [Entitic vol] 91.1 fL Normal 82.0-98.0 [facility] Comment on above: Order Comment: No: D o not add to previous draw Performed By: #### 8 [id number] #### [facility] [address] [place] [address], [facility] Monocytes (Bld) [#/Vol] 1.1 10*3/uL High 0.1-1.0 [facility] Comment on above: Order Comment: No: D o not add to previous draw Performed By: #### 8 [id number] #### [facility] [address] [place] [address], [facility] MONOS 13.4 % High 5.0-12.0 [facility] Comment on above: Order Comment: No: D o not add to previous draw Performed By: #### 8 [id number] #### [facility] [address] [place] [address], [facility] Neutrophils/100 WBC (Bld) 62.9 % Normal 40.0-72.0 [facility] Comment on above: Order Comment: No: D o not add to previous draw Performed By: #### 8 [id number] #### [facility] [address] [place] [address], [facility] Nucleated RBC/100 WBC (Bld) [Ratio] 0 % Normal 0-0 [facility] Comment on above: Order Comment: No: D o not add to previous draw Performed By: #### 8 [id number] #### [facility] [address] [place] [address], [facility] PLAT CNT 296 10*3/uL Normal 150-400 [facility] Comment on above: Order Comment: No: D o not add to previous draw Performed By: #### 8 [id number] #### [facility] [address] [place] [address], [place] RBC (Bld) [#/Vol] 3.50 10*6/uL Low 4.20-5.70 [facility] Comment on above: Order Comment: No: D o not add to previous draw Performed By: #### 8 [id number] #### [facility] [address] [place] [address], [place] WBC (Bld) [#/Vol] 8.03 10*3/uL Normal 4.00-10.60 [facility] Comment on above: Order Comment: No: D o not add to previous draw Performed By: #### 8 [id number] #### [facility] [address] [place] [address], [place] POC GLUCOSE LABon 07-18-2020 Glucose [Mass/Vol] 192 mg/dL High 70-100 [facility] Comment on above: Performed By: #### 5 7307, 23574 #### [facility] [address] [place] [address], [place] Glucose [Mass/Vol] 153 mg/dL High 70-100 [facility] Comment on above: Performed By: #### 5 7307, [id number] #### [facility] [address] [place] [address], [place] Glucose [Mass/Vol] 80 mg/dL Normal 70-100 [facility] Comment on above: Performed By: #### 5 7307, [id number] #### [facility] [address] [place] [address], [place] Glucose [Mass/Vol] 48 mg/dL Critically low 70-100 [facility] Comment on above: Order Comment: Left Peural Effusion Performed By: #### 8 [id number] ####[facility] [place] [address], [place] Glucose [Mass/Vol] 120 mg/dL High 70-100 [facility] Comment on above: Performed By: #### 5 0103 #### [facility] [address] [facility]. [address] Glucose [Mass/Vol] 112 mg/dL High 70-100 [facility] Comment on above: Performed By: #### 5 7307, [id number] #### [facility] [address] [facility]. [address] POC SARS COV2 ANTIGEN NEGATI VEon 07-18-2020 POC SARS COV2 ANTIGEN NEG CANCELED Normal NEGATIVE [facility] Comment on above: Result Comment: The released value NEGATIVE was canceled by ULISES on 07/19/2020 07:11 Performed By: #### 3 1944 #### [facility] [address] [facility]. [address] POC SARS COV2 ANTIGEN NEG Negative Normal NEGATIVE [facility] Comment on above: Result [...] signs and symptoms consistent with COVID-19. The [employer] COVID-19 Antigen test is a lateral flow [...] #### 8 [id number] #### [facility] [address] [place] [address], [facility] BASIC METABOLIC PANELon 03-2 Calcium [Mass/Vol] 8.2 mg/dL Low 8.6-10.3 [facility] Comment on above: Order Comment: No: D o not add to previous draw Performed By: #### 3 1943 #### [facility] [address] [place] [address], [place] Chloride [Moles/Vol] 101 mmol/L Normal 98-107 [facility] Comment on above: Order Comment: No: D o not add to previous draw Performed By: #### 3 1943 #### [facility] [address] [place] [address], [place] CO2 [Moles/Vol] 25 mmol/L Normal 21-31 [facility] Comment on above: Order Comment: No: D o not add to previous draw Performed By: #### 3 1943 #### [facility] [address] [place] [address], [place] Creatinine [Mass/Vol] 3.64 mg/dL High 0.70-1.30 [facility] Comment on above: Order Comment: No: D o not add to previous draw Performed By: #### 3 1943 #### [facility] [address] [place] [address], [place] eGFR- 21 ml/min/1.73sq m Abnormal >60 [facility] Comment on above: Order Comment: No: D o not add to previous draw Performed By: #### 3 1943 #### [facility] [address] [place] [address], [place] eGFR- non- 17 ml/min/1.73sq m Abnormal >60 [facility] Comment on above: Order Comment: No: D o not add to previous draw Performed By: #### 3 1943 #### [facility] [address] [place] [address], [facility] Glucose [Mass/Vol] 124 mg/dL High 70-100 [facility] Comment on above: Order Comment: No: D o not add to previous draw Performed By: #### 3 1943 #### [facility] [address] [place] [id number], [facility] Potassium [Moles/Vol] 4.3 mmol/L Normal 3.5-5.1 [facility] Comment on above: Order Comment: No: D o not add to previous draw Performed By: #### 3 1943 #### [facility] [address] [place] [address], [facility] Sodium [Moles/Vol] 134 mmol/L Low 136-145 [facility] Comment on above: Order Comment: No: D o not add to previous draw Performed By: #### 3 1943 #### [facility] [address] [place] [address], [facility] Urea nitrogen [Mass/Vol] 36 mg/dL High 7-25 [facility] Comment on above: Order Comment: No: D o not add to previous draw Performed By: #### 3 1943 #### [facility] [address] [place] [address], [facility] CBC W/DIFFon 07-17-2020 ABS IMM GRANS 0.2 10*3/uL Normal 0.0-0.2 [facility] Comment on above: Order Comment: No: D o not add to previous draw Performed By: #### 8 [id number] #### [facility] [address] [place] [address], [facility] ABS NEUTROPHILS 5.8 10*3/uL Normal 1.6-7.6 [facility] Comment on above: Order Comment: No: D o not add to previous draw Performed By: #### 8 [id number] #### [facility] [address] [place] [address], [facility] Basophils (Bld) [#/Vol] 0.1 10*3/uL Normal 0.0-0.2 [facility] Comment on above: Order Comment: No: D o not add to previous draw Performed By: #### 8 [id number] #### [facility] [address] [place] [address], [place] Basophils/100 WBC (Bld) 0.6 % Normal 0.0-1.0 [facility] Comment on above: Order Comment: No: D o not add to previous draw Performed By: #### 8 [id number] #### [facility] [address] [place] [id number], [facility] Eosinophils (Bld) [#/Vol] 0.6 10*3/uL High 0.0-0.5 [facility] Comment on above: Order Comment: No: D o not add to previous draw Performed By: #### 8 [id number] #### [facility] [address] [place] [address], [facility] Eosinophils/100 WBC (Bld) 7.0 % High 0.0-6.0 [facility] Comment on above: Order Comment: No: D o not add to previous draw Performed By: #### 8 [id number] #### [facility] [address] [place] [id number], [facility] Erythrocyte distribution width (RBC) [Ratio] 14.8 % Normal 11.5-15.0 [facility] Comment on above: Order Comment: No: D o not add to previous draw Performed By: #### 8 [id number] #### [facility] [address] [place] [id number], [place] Hematocrit (Bld) [Volume fraction] 30.0 % Low 39.0-50.0 [facility] Comment on above: Order Comment: No: D o not add to previous draw Performed By: #### 8 [id number] #### [facility] [address] [place] [address], [facility] Hemoglobin (Bld) [Mass/Vol] 9.2 g/dL Low 13.0-17.0 [facility] Comment on above: Order Comment: No: D o not add to previous draw Performed By: #### 8 [id number] #### [facility] [address] [place] [address], [facility] IMMATURE GRANS 1.7 % High 0.0-1.0 [facility] Comment on above: Order Comment: No: D o not add to previous draw Performed By: #### 8 [id number] #### [facility] [address] [place] [address], [facility] Lymphocytes (Bld) [#/Vol] 1.3 10*3/uL Normal 1.2-4.0 [facility] Comment on above: Order Comment: No: D o not add to previous draw Performed By: #### 8 [id number] #### [facility] [address] [place] [id number], [facility] Lymphocytes/100 WBC (Bld) 14.3 % Low 20.0-45.0 [facility] Comment on above: Order Comment: No: D o not add to previous draw Performed By: #### 8 [id number] #### [facility] [address] [place] [address], [facility] MCH (RBC) [Entitic mass] 27.3 pg Normal 27.0-33.0 [facility] Comment on above: Order Comment: No: D o not add to previous draw Performed By: #### 8 [id number] #### [facility] [address] [place] [address], [place] MCHC (RBC) [Mass/Vol] 30.7 g/dL Low 32.0-35.0 [facility] Comment on above: Order Comment: No: D o not add to previous draw Performed By: #### 8 [id number] #### [facility] [address] [place] [address], [facility] MCV (RBC) [Entitic vol] 89.0 fL Normal 82.0-98.0 [facility] Comment on above: Order Comment: No: D o not add to previous draw Performed By: #### 8 [id number] #### [facility] [address] [place] [id number], [facility] Monocytes (Bld) [#/Vol] 1.0 10*3/uL Normal 0.1-1.0 [facility] Comment on above: Order Comment: No: D o not add to previous draw Performed By: #### 8 [id number] #### [facility] [address] [place] [address], [facility] MONOS 10.9 % Normal 5.0-12.0 [facility] Comment on above: Order Comment: No: D o not add to previous draw Performed By: #### 8 [id number] #### [facility] [address] [place] [address], [facility] Neutrophils/100 WBC (Bld) 65.5 % Normal 40.0-72.0 [facility] Comment on above: Order Comment: No: D o not add to previous draw Performed By: #### 8 [id number] #### [facility] [address] [place] [address], [facility] Nucleated RBC/100 WBC (Bld) [Ratio] 0 % Normal 0-0 [facility] Comment on above: Order Comment: No: D o not add to previous draw Performed By: #### 8 [id number] #### [facility] [address] [place] [address], [place] PLAT CNT 293 10*3/uL Normal 150-400 [facility] Comment on above: Order Comment: No: D o not add to previous draw Performed By: #### 8 [id number] #### [facility] [address] [place] [address], [facility] RBC (Bld) [#/Vol] 3.37 10*6/uL Low 4.20-5.70 [facility] Comment on above: Order Comment: No: D o not add to previous draw Performed By: #### 8 [id number] #### [facility] [address] [place] [address], [place] WBC (Bld) [#/Vol] 8.86 10*3/uL Normal 4.00-10.60 [facility] Comment on above: Order Comment: No: D o not add to previous draw Performed By: #### 8 [id number] #### [facility] [address] [place] [address], [place] POC GLUCOSE LABon 07-17-2020 Glucose [Mass/Vol] 101 mg/dL High 70-100 [facility] Comment on above: Performed By: #### 5 7307, 53543 #### [facility] [address] [place] [address], [place] Glucose [Mass/Vol] 76 mg/dL Normal 70-100 [facility] Comment on above: Performed By: #### 5 7307, 75371 #### [facility] [address] [place] [address], [place] Glucose [Mass/Vol] 75 mg/dL Normal 70-100 [facility] Comment on above: Performed By: #### 8 [id number] ####[facility] [place] [address], [place] Glucose [Mass/Vol] 198 mg/dL High 70-100 [facility] Comment on above: Performed By: #### 8 [id number] ####[facility] [place] [address], [place] Glucose [Mass/Vol] 205 mg/dL High 70-100 [facility] Comment on above: Performed By: #### 3 0318 #### [facility] [address] [place] [address], [place] Glucose [Mass/Vol] 187 mg/dL High 70-100 [facility] Comment on above: Performed By: #### 5 7307, 05610 #### [facility] [address] [place] [address], [place] Glucose [Mass/Vol] 131 mg/dL High 70-100 [facility] Comment on above: Performed By: #### 8 [id number] #### [facility] [address] [place] [address], [place] Glucose [Mass/Vol] 75 mg/dL Normal 70-100 [facility] Comment on above: Performed By: #### 5 0103 #### [facility] [address] [place] [address], [place] Glucose [Mass/Vol] 69 mg/dL Low 70-100 [facility] Comment on above: Performed By: #### 8 [id number] ####[facility] [place] [address], [place] BASIC METABOLIC PANELon 03-2 0-2020 Calcium [Mass/Vol] 8.4 mg/dL Low 8.6-10.3 [facility] Comment on above: Order Comment: No: D o not add to previous draw Performed By: #### 3 1943 #### [facility] [address] [place] [address], [place] Chloride [Moles/Vol] 105 mmol/L Normal 98-107 [facility] Comment on above: Order Comment: No: D o not add to previous draw Performed By: #### 3 1943 #### [facility] [address] [place] [address], [place] CO2 [Moles/Vol] 24 mmol/L Normal 21-31 [facility] Comment on above: Order Comment: No: D o not add to previous draw Performed By: #### 3 1943 #### [facility] [address] [place] [address], [place] Creatinine [Mass/Vol] 4.14 mg/dL High 0.70-1.30 [facility] Comment on above: Order Comment: No: D o not add to previous draw Performed By: #### 3 1943 #### [facility] [address] [place] [address], [facility] eGFR- 18 ml/min/1.73sq m Abnormal >60 [facility] Comment on above: Order Comment: No: D o not add to previous draw Performed By: #### 3 1943 #### [facility] [address] [place] [address], [place] eGFR- non- 15 ml/min/1.73sq m Abnormal >60 [facility] Comment on above: Order Comment: No: D o not add to previous draw Performed By: #### 3 1943 #### [facility] [address] [place] [address], [place] Glucose [Mass/Vol] 127 mg/dL High 70-100 [facility] Comment on above: Order Comment: No: D o not add to previous draw Performed By: #### 3 1943 #### [facility] [address] [place] [address], [place] Potassium [Moles/Vol] 4.0 mmol/L Normal 3.5-5.1 [facility] Comment on above: Order Comment: No: D o not add to previous draw Performed By: #### 3 1943 #### [facility] [address] [place] [address], [place] Sodium [Moles/Vol] 136 mmol/L Normal 136-145 [facility] Comment on above: Order Comment: No: D o not add to previous draw Performed By: #### 3 1943 #### [facility] [address] [place] [address], [place] Urea nitrogen [Mass/Vol] 35 mg/dL High 7-25 [facility] Comment on above: Order Comment: No: D o not add to previous draw Performed By: #### 3 4 #### [facility] [address] [place] [address], [facility] CBC COMPLETE BLOOD COUNTon 07-16-2020 Erythrocyte distribution width (RBC) [Ratio] 14.6 % Normal 11.5-15.0 [facility] Comment on above: Order Comment: No: D o not add to previous draw Performed By: #### 8 [id number] #### [facility] [address] [place] [id number], [facility] Hematocrit (Bld) [Volume fraction] 31.8 % Low 39.0-50.0 [facility] Comment on above: Order Comment: No: D o not add to previous draw Performed By: #### 8 [id number] #### [facility] [address] [place] [id number], [facility] Hemoglobin (Bld) [Mass/Vol] 9.7 g/dL Low 13.0-17.0 [facility] Comment on above: Order Comment: No: D o not add to previous draw Performed By: #### 8 [id number] #### [facility] [address] [place] [address], [facility] MCH (RBC) [Entitic mass] 27.2 pg Normal 27.0-33.0 [facility] Comment on above: Order Comment: No: D o not add to previous draw Performed By: #### 8 [id number] #### [facility] [address] [place] [address], [facility] MCHC (RBC) [Mass/Vol] 30.5 g/dL Low 32.0-35.0 [facility] Comment on above: Order Comment: No: D o not add to previous draw Performed By: #### 8 [id number] #### [facility] [address] [place] [id number], [facility] MCV (RBC) [Entitic vol] 89.3 fL Normal 82.0-98.0 [facility] Comment on above: Order Comment: No: D o not add to previous draw Performed By: #### 8 [id number] #### [facility] [address] [place] [address], [facility] Nucleated RBC/100 WBC (Bld) [Ratio] 0 % Normal 0-0 [facility] Comment on above: Order Comment: No: D o not add to previous draw Performed By: #### 8 [id number] #### [facility] [address] [place] [address], [place] PLAT CNT 321 10*3/uL Normal 150-400 [facility] Comment on above: Order Comment: No: D o not add to previous draw Performed By: #### 8 [id number] #### [facility] [address] [place] [address], [facility] RBC (Bld) [#/Vol] 3.56 10*6/uL Low 4.20-5.70 [facility] Comment on above: Order Comment: No: D o not add to previous draw Performed By: #### 8 [id number] #### [facility] [address] [place] [address], [place] WBC (Bld) [#/Vol] 8.88 10*3/uL Normal 4.00-10.60 [facility] Comment on above: Order Comment: No: D o not add to previous draw Performed By: #### 8 [id number] #### [facility] [address] [place] [address], [facility] POC GLUCOSE LABon 07-16-2020 Glucose [Mass/Vol] 94 mg/dL Normal 70-100 [facility] Comment on above: Performed By: #### 5 0103 #### [facility] [address] [place] [address], [place] Glucose [Mass/Vol] 62 mg/dL Low 70-100 [facility] Comment on above: Performed By: #### 5 7307, [id number] #### [facility] [address] [place] [address], [place] Glucose [Mass/Vol] 80 mg/dL Normal 70-100 [facility] Comment on above: Performed By: #### 5 7307, [id number] #### [facility] [address] [place] [address], [place] Glucose [Mass/Vol] 99 mg/dL Normal 70-100 [facility] Comment on above: Performed By: #### 8 [id number] ####[facility] [place] [address], [place] Glucose [Mass/Vol] 203 mg/dL High 70-100 [facility] Comment on above: Performed By: #### 8 [id number] ####[facility] [place] [address], [place] Glucose [Mass/Vol] 151 mg/dL High 70-100 [facility] Comment on above: Performed By: #### 5 7307, 87832 #### [facility] [address] [place] [address], [facility] ANAon 07-15-2020 KILLIAN SCREEN <1:40 Normal <1:40,1:40 [facility] Comment on above: Order Comment: No: D o not add to previous draw Performed By: #### 8 [id number] #### [facility] [address] [facility]. [place] [id number], [facility] ANCA IGG WITH REFLEX [id number] on 07-15-2020 ANCA <1:20 Normal <1:20 [facility] Comment on above: Order [...] collagen vascular disease or arthritis. Performed By: [employer] [address] [place] [id number] Msws: Emi Campbell MD BASIC METABOLIC PANELon 06-27 Calcium [Mass/Vol] 8.5 mg/dL Low 8.6-10.3 [facility] Comment on above: Order Comment: No: D o not add to previous draw Performed By: #### 8 [id number] #### [facility] [address] [place] [address], [place] Chloride [Moles/Vol] 103 mmol/L Normal 98-107 [facility] Comment on above: Order Comment: No: D o not add to previous draw Performed By: #### 8 [id number] #### [facility] [address] [place] [address], [place] CO2 [Moles/Vol] 23 mmol/L Normal 21-31 [facility] Comment on above: Order Comment: No: D o not add to previous draw Performed By: #### 8 [id number] #### [facility] [address] [place] [address], [place] Creatinine [Mass/Vol] 4.38 mg/dL High 0.70-1.30 [facility] Comment on above: Order Comment: No: D o not add to previous draw Performed By: #### 8 [id number] #### [facility] [address] [place] [address], [place] eGFR- 17 ml/min/1.73sq m Abnormal >60 [facility] Comment on above: Order Comment: No: D o not add to previous draw Performed By: #### 8 [id number] #### [facility] [address] [place] [address], [place] eGFR- non- 14 ml/min/1.73sq m Abnormal >60 [facility] Comment on above: Order Comment: No: D o not add to previous draw Performed By: #### 8 [id number] #### [facility] [address] [place] [address], [place] Glucose [Mass/Vol] 154 mg/dL High 70-100 [facility] Comment on above: Order Comment: No: D o not add to previous draw Performed By: #### 8 [id number] #### [facility] [address] [place] [address], [facility] Potassium [Moles/Vol] 4.5 mmol/L Normal 3.5-5.1 [facility] Comment on above: Order Comment: No: D o not add to previous draw Performed By: #### 8 [id number] #### [facility] [address] [facility]. [address] Sodium [Moles/Vol] 135 mmol/L Low 136-145 [facility] Comment on above: Order Comment: No: D o not add to previous draw Performed By: #### 8 [id number] #### [facility] [address] [facility]. [address] Urea nitrogen [Mass/Vol] 32 mg/dL High 7-25 [facility] Comment on above: Order Comment: No: D o not add to previous draw Performed By: #### 8 [id number] #### [facility] [address] [facility]. [address] C REACTIVE PROTEINon 021 CRP [Mass/Vol] 138.0 mg/L High 0.0-7.0 [facility] Comment on above: Order Comment: FROM [id number] Performed By: #### 8 [id number] #### [facility] [address] [facility]. [address] CBC W/DIFFon 07-15-2020 ABS IMM GRANS 0.1 10*3/uL Normal 0.0-0.2 [facility] Comment on above: Performed By: #### 5 0103 #### [facility] [address] [place] [address], [facility] ABS NEUTROPHILS 7.3 10*3/uL Normal 1.6-7.6 [facility] Comment on above: Performed By: #### 5 0103 #### [facility] [address] [place] [address], [facility] Basophils (Bld) [#/Vol] 0.0 10*3/uL Normal 0.0-0.2 [facility] Comment on above: Performed By: #### 5 0103 #### [facility] [address] [place] [address], [facility] Basophils/100 WBC (Bld) 0.3 % Normal 0.0-1.0 [facility] Comment on above: Performed By: #### 5 0103 #### [facility] [address] [place] [address], [facility] Eosinophils (Bld) [#/Vol] 0.5 10*3/uL Normal 0.0-0.5 [facility] Comment on above: Performed By: #### 5 0103 #### [facility] [address] [place] [address], [facility] Eosinophils/100 WBC (Bld) 5.1 % Normal 0.0-6.0 [facility] Comment on above: Performed By: #### 5 0103 #### [facility] [address] [place] [id number], [facility] Erythrocyte distribution width (RBC) [Ratio] 14.9 % Normal 11.5-15.0 [facility] Comment on above: Performed By: #### 5 0103 #### [facility] [address] [place] [id number], [facility] Hematocrit (Bld) [Volume fraction] 33.0 % Low 39.0-50.0 [facility] Comment on above: Performed By: #### 5 3 #### [facility] [address] [place] [address], [facility] Hemoglobin (Bld) [Mass/Vol] 9.9 g/dL Low 13.0-17.0 [facility] Comment on above: Performed By: #### 5 0103 #### [facility] [address] [place] [address], [facility] IMMATURE GRANS 1.4 % High 0.0-1.0 [facility] Comment on above: Performed By: #### 5 0103 #### [facility] [address] [facility] [place] [address], [facility] Lymphocytes (Bld) [#/Vol] 1.1 10*3/uL Low 1.2-4.0 [facility] Comment on above: Performed By: #### 5 0103 #### [facility] [address] [place] [address], [facility] Lymphocytes/100 WBC (Bld) 11.0 % Low 20.0-45.0 [facility] Comment on above: Performed By: #### 5 3 #### [facility] [address] MCH (RBC) [Entitic mass] 27.0 pg Normal 27.0-33.0 [facility] Comment on above: Performed By: #### 5 0103 #### [facility] [address] [place] [address], [facility] MCHC (RBC) [Mass/Vol] 30.0 g/dL Low 32.0-35.0 [facility] Comment on above: Performed By: #### 5 0103 #### [facility] [address] [place] [address], [facility] MCV (RBC) [Entitic vol] 90.2 fL Normal 82.0-98.0 [facility] Comment on above: Performed By: #### 5 3 #### [facility] [address] [place] [address], [facility] Monocytes (Bld) [#/Vol] 1.1 10*3/uL High 0.1-1.0 [facility] Comment on above: Performed By: #### 5 0103 #### [facility] [address] [place] [address], [facility] MONOS 10.9 % Normal 5.0-12.0 [facility] Comment on above: Performed By: #### 5 3 #### [facility] [address] [place] [address], [facility] Neutrophils/100 WBC (Bld) 71.3 % Normal 40.0-72.0 [facility] Comment on above: Performed By: #### 5 0103 #### [facility] [address] [facility] [place] [address], [facility] Nucleated RBC/100 WBC (Bld) [Ratio] 0 % Normal 0-0 [facility] Comment on above: Performed By: #### 5 102 #### [facility] [address] [facility] [place] [address], [facility] PLAT CNT 317 10*3/uL Normal 150-400 [facility] Comment on above: Performed By: #### 5 0103 #### [facility] [address] [facility] [place] [address], [facility] RBC (Bld) [#/Vol] 3.66 10*6/uL Low 4.20-5.70 [facility] Comment on above: Performed By: #### 5 3 #### [facility] [address] [facility] [place] [address], [facility] WBC (Bld) [#/Vol] 10.23 10*3/uL Normal 4.00-10.60 [facility] Comment on above: Performed By: #### 5 3 #### [facility] [address] [facility] [place] [address], [facility] COMPLEMENT 3on 07-15-2020 COMPLEMENT 3 108 mg/dL Normal 79-152 [facility] Comment on above: Order Comment: No: D o not add to previous draw Performed By: #### 8 [id number] #### [facility] [address] [place] [address], [place] COMPLEMENT 4on 07-15-2020 COMPLEMENT 4 31 mg/dL Normal 16-38 [facility] Comment on above: Order Comment: No: D o not add to previous draw Performed By: #### 8 [id number] #### [facility] [address] [place] [address], [place] GLOMR BASMT MEMBRon 07-16-19 21 GLOMR BASMT MBRN Negative Abnormal NEGATIVE [facility] Comment on above: Order Comment: No: D o not add to previous draw Result Comment: Note : The performance characteristics of this test were validated by the [facility] Immunology laboratory. It has not been cleared or approved by the U.S. Food and Drug Administration. The results are not intended to be used as the sole means for clinical diagnosis or patient management decisions. [facility]'s Immunology lab is authorized under CLIA to perform high-complexity testing. Performed By: #### 8 5499 #### [facility] [address] [place] [address], [place] POC GLUCOSE LABon 07-15-2020 Glucose [Mass/Vol] 107 mg/dL High 70-100 [facility] Comment on above: Performed By: #### 5 7307, 03293 #### [facility] [address] [place] [address], [place] Glucose [Mass/Vol] 84 mg/dL Normal 70-100 [facility] Comment on above: Performed By: #### 5 0103 #### [facility] [address] [place] [address], [place] Glucose [Mass/Vol] 164 mg/dL High 70-100 [facility] Comment on above: Performed By: #### 8 5499 ####[facility] [place] [address], [place] Glucose [Mass/Vol] 141 mg/dL High 70-100 [facility] Comment on above: Performed By: #### 5 7307, [address] #### [address] PORTABLE CHEST 1 VIEWon 06-27 PORTABLE CHEST 1 VIEW [facility] Department of Radiology [address] [place] [id number] Patient Name: RASHARD LYMAN : 1960 Sex: M Age: Race: White Pt. Location: [id number] Patient Status: I Ordered Date: 07/15/2020 7:00:00 [...] exam. Electronically signed: Nir Swartz. Transcribed by: [email or web address], User Resident: Electronically Signed by: NIR SWARTZ @ 07/15/2020 07:34 AM Normal [facility] Comment on above: Order Comment: evalu ate for Effusion *AFB CULTUREon 07-14-2020 *AFB CULTURE Clinical Report: (D) Specimen/Source: FLUID/PLEURAL FLUID Collected: 07/14/2020 13:03 Status: Final Last Updated: 08/26/2020 08:52 (1) Left Peural Effusion AFB (Final) No Acid Fast Bacilli Seen CULT RES (Final) No growth after 42 days of incubation Normal [facility] Comment on above: Order Comment: Left Peural Effusion Performed By: #### 8 [id number] #### [facility] [address] *ANAEROBIC CULTUREon 021 *ANAEROBIC CULTURE Clinical Report: (D) Specimen/Source: FLUID/PLEURAL FLUID Collected: 07/14/2020 13:03 Status: Final Last Updated: 07/19/2020 08:08 (1) Left Peural Effusion CULT RES (Final) No Anaerobes Isolated 5 Days Normal [facility] Comment on above: Order Comment: Left Peural Effusion Performed By: #### 8 [id number] #### [facility] [address] *BODY FLUID CULTUREon 2020 *BODY FLUID CULTURE Clinical Report: (D) Specimen/Source: FLUID/PLEURAL FLUID Collected: 07/14/2020 13:03 Status: Final Last Updated: 07/19/2020 07:53 (1) Left Peural Effusion GRAM (Final) Polys PRESENT No Bacteria Seen CYTOSPUN (Final) This Gram Stain was done on a cytocentrifuged specimen CULT RES (Final) No Growth Day 5 Normal [facility] Comment on above: Order Comment: Left Peural Effusion Performed By: #### 3 0318 #### [facility] [address] *FUNGAL CULTUREon 07-14-2020 *FUNGAL CULTURE Clinical Report: (D) Specimen/Source: FLUID/PLEURAL FLUID Collected: 07/14/2020 13:03 Status: Final Last Updated: 08/15/2020 08:41 (1) Left Peural Effusion FS (Final) No Yeast or Fungal Elements Seen CULT RES (Final) Culture negative for fungus Normal [facility] Comment on above: Order Comment: Left Peural Effusion Performed By: #### 8 [id number] #### [facility] [address] [place] [address], [facility] *VIRAL NON RESPIRATORY CULTU REon 07-14-2020 Bacteria identified Cx Nom (Unsp spec) Normal [facility] Comment on above: Order [...] Linked Virus Inducible S. [place] Normal [facility] Comment on above: Order Comment: Left Peural Effusion Result Comment: Test Performed by [facility] [address] [place] [id number] - Released 07/20/2020 14:10 Result changed by IF on 07/17/2020 14:17. The previous value was Test Performed by [facility] [address] [place] [address] [phone].. Result changed by IF on 07/18/2020 12:17. The previous value was Test Performed by [facility] [address] [place] [address] [phone].. Result changed by IF on 07/20/2020 14:10. The previous value was Test Performed by [facility] [address] [place] [address] [phone].. REPORT STATUS FINAL 07/20/2020 Normal [facility] Comment on above: Order Comment: Left Peural Effusion Result Comment: Resu lt changed by IF on 07/20/2020 14:10. The previous value was Preliminary. APTTon 07-14-2020 aPTT Coag (Bld) [Time] 41.7 s High 25.0-35.0 [facility] Comment on above: Order [...] #### 8 5499 #### [facility] [address] [place] [address], [facility] aPTT Coag (Bld) [Time] 44.9 s High 25.0-35.0 [facility] Comment on above: Order [...] THIS PURPOSE. Performed By: #### 5 7307, 57503 #### [facility] [address] [place] [address], [facility] BASIC METABOLIC PANELon 06-27 Calcium [Mass/Vol] 8.6 mg/dL Normal 8.6-10.3 [facility] Comment on above: Order Comment: No: D o not add to previous draw Performed By: #### 8 [id number] #### [facility] [address] [place] [address], [place] Chloride [Moles/Vol] 102 mmol/L Normal 98-107 [facility] Comment on above: Order Comment: No: D o not add to previous draw Performed By: #### 8 [id number] #### [facility] [address] [place] [address], [place] CO2 [Moles/Vol] 24 mmol/L Normal 21-31 [facility] Comment on above: Order Comment: No: D o not add to previous draw Performed By: #### 8 [id number] #### [facility] [address] [place] [address], [place] Creatinine [Mass/Vol] 3.44 mg/dL High 0.70-1.30 [facility] Comment on above: Order Comment: No: D o not add to previous draw Performed By: #### 8 [id number] #### [facility] [address] [place] [address], [place] eGFR- 22 ml/min/1.73sq m Abnormal >60 [facility] Comment on above: Order Comment: No: D o not add to previous draw Performed By: #### 8 [id number] #### [facility] [address] [place] [address], [place] eGFR- non- 18 ml/min/1.73sq m Abnormal >60 [facility] Comment on above: Order Comment: No: D o not add to previous draw Performed By: #### 8 5499 #### [facility] [address] [place] [address], [place] Glucose [Mass/Vol] 355 mg/dL High 70-100 [facility] Comment on above: Order Comment: No: D o not add to previous draw Performed By: #### 8 5499 #### [facility] [address] [place] [address], [place] Potassium [Moles/Vol] 4.6 mmol/L Normal 3.5-5.1 [facility] Comment on above: Order Comment: No: D o not add to previous draw Performed By: #### 8 [id number] #### [facility] [address] [place] [address], [facility] Sodium [Moles/Vol] 133 mmol/L Low 136-145 [facility] Comment on above: Order Comment: No: D o not add to previous draw Performed By: #### 8 [id number] #### [facility] [address] [place] [address], [facility] Urea nitrogen [Mass/Vol] 27 mg/dL High 7-25 [facility] Comment on above: Order Comment: No: D o not add to previous draw Performed By: #### 8 [id number] #### [facility] [address] BNP (B-TYPE NATRIURETIC PEPT CIERRA)on 07-14-2020 Natriuretic peptide B (Bld) [Mass/Vol] 19 pg/mL Normal 0-100 [facility] Comment on above: Order Comment: Left Peural Effusion Result Comment: Give n the appropriate clinical setting a BNP result of >100 pg/mL indicates congestive heart failure. Performed By: #### 3 0318 #### [facility] [address] [facility] [facility] CBC COMPLETE BLOOD COUNTon 0 07-14-2020 Erythrocyte distribution width (RBC) [Ratio] 14.6 % Normal 11.5-15.0 [facility] Comment on above: Order Comment: No: D o not add to previous draw Performed By: #### 8 [id number] #### [facility] [address] [place] [address], [facility] Hematocrit (Bld) [Volume fraction] 35.3 % Low 39.0-50.0 [facility] Comment on above: Order Comment: No: D o not add to previous draw Performed By: #### 8 [id number] #### [facility] [address] [place] [address], [facility] Hemoglobin (Bld) [Mass/Vol] 11.1 g/dL Low 13.0-17.0 [facility] Comment on above: Order Comment: No: D o not add to previous draw Performed By: #### 8 [id number] #### [facility] [address] [place] [address], [facility] MCH (RBC) [Entitic mass] 27.5 pg Normal 27.0-33.0 [facility] Comment on above: Order Comment: No: D o not add to previous draw Performed By: #### 8 [id number] #### [facility] [address] [place] [address], [facility] MCHC (RBC) [Mass/Vol] 31.4 g/dL Low 32.0-35.0 [facility] Comment on above: Order Comment: No: D o not add to previous draw Performed By: #### 8 [id number] #### [facility] [address] [place] [address], [facility] MCV (RBC) [Entitic vol] 87.6 fL Normal 82.0-98.0 [facility] Comment on above: Order Comment: No: D o not add to previous draw Performed By: #### 8 [id number] #### [facility] [address] [place] [address], [facility] Nucleated RBC/100 WBC (Bld) [Ratio] 0 % Normal 0-0 [facility] Comment on above: Order Comment: No: D o not add to previous draw Performed By: #### 8 [id number] #### [facility] [address] [facility] [place] [id number], [facility] PLAT CNT 325 10*3/uL Normal 150-400 [facility] Comment on above: Order Comment: No: D o not add to previous draw Performed By: #### 8 [id number] #### [facility] [address] [place] [id number], [facility] RBC (Bld) [#/Vol] 4.03 10*6/uL Low 4.20-5.70 [facility] Comment on above: Order Comment: No: D o not add to previous draw Performed By: #### 8 [id number] #### [facility] [address] [place] [address], [facility] WBC (Bld) [#/Vol] 12.59 10*3/uL High 4.00-10.60 [facility] Comment on above: Order Comment: No: D o not add to previous draw Performed By: #### 8 [id number] #### [facility] [address] [place] [address], [facility] CBC W/DIFFon 07-14-2020 ABS IMM GRANS 0.2 10*3/uL Normal 0.0-0.2 [facility] Comment on above: Order Comment: No: D o not add to previous draw Performed By: #### 8 [id number] #### [facility] [address] [place] [address], [facility] ABS NEUTROPHILS 7.9 10*3/uL High 1.6-7.6 [facility] Comment on above: Order Comment: No: D o not add to previous draw Performed By: #### 8 [id number] #### [facility] [address] [place] [address], [facility] Basophils (Bld) [#/Vol] 0.1 10*3/uL Normal 0.0-0.2 [facility] [facility] Comment on above: Order Comment: No: D o not add to previous draw Performed By: #### 8 [id number] #### [facility] [address] [place] [address], [facility] Basophils/100 WBC (Bld) 0.5 % Normal 0.0-1.0 [facility] Comment on above: Order Comment: No: D o not add to previous draw Performed By: #### 8 [id number] #### [facility] [address] Eosinophils (Bld) [#/Vol] 0.5 10*3/uL Normal 0.0-0.5 [facility] Comment on above: Order Comment: No: D o not add to previous draw Performed By: #### 8 [id number] #### [facility] [address] [place] [address], [facility] Eosinophils/100 WBC (Bld) 4.3 % Normal 0.0-6.0 [facility] Comment on above: Order Comment: No: D o not add to previous draw Performed By: #### 8 [id number] #### [facility] [address] [place] [address], [facility] Erythrocyte distribution width (RBC) [Ratio] 14.6 % Normal 11.5-15.0 [facility] Comment on above: Order Comment: No: D o not add to previous draw Performed By: #### 8 [id number] #### [facility] [address] [place] [address], [facility] Hematocrit (Bld) [Volume fraction] 34.2 % Low 39.0-50.0 [facility] Comment on above: Order Comment: No: D o not add to previous draw Performed By: #### 8 [id number] #### [facility] [address] [place] [address], [facility] Hemoglobin (Bld) [Mass/Vol] 10.3 g/dL Low 13.0-17.0 [facility] Comment on above: Order Comment: No: D o not add to previous draw Performed By: #### 8 [id number] #### [facility] [address] [place] [address], [facility] IMMATURE GRANS 1.4 % High 0.0-1.0 [facility] Comment on above: Order Comment: No: D o not add to previous draw Performed By: #### 8 [id number] #### [facility] [address] [place] [address], [facility] Lymphocytes (Bld) [#/Vol] 1.3 10*3/uL Normal 1.2-4.0 [facility] Comment on above: Order Comment: No: D o not add to previous draw Performed By: #### 8 [id number] #### [facility] [address] Lymphocytes/100 WBC (Bld) 11.3 % Low 20.0-45.0 [facility] Comment on above: Order Comment: No: D o not add to previous draw Performed By: #### 8 [id number] #### [facility] [address] MCH (RBC) [Entitic mass] 27.0 pg Normal 27.0-33.0 [facility] Comment on above: Order Comment: No: D o not add to previous draw Performed By: #### 8 [id number] #### [facility] [address] MCHC (RBC) [Mass/Vol] 30.1 g/dL Low 32.0-35.0 [facility] Comment on above: Order Comment: No: D o not add to previous draw Performed By: #### 8 [id number] #### [facility] [address] MCV (RBC) [Entitic vol] 89.5 fL Normal 82.0-98.0 [facility] Comment on above: Order Comment: No: D o not add to previous draw Performed By: #### 8 [id number] #### [facility] [address] [place] [address], [facility] Monocytes (Bld) [#/Vol] 1.4 10*3/uL High 0.1-1.0 [facility] Comment on above: Order Comment: No: D o not add to previous draw Performed By: #### 8 [id number] #### [facility] [address] [place] [address], [facility] MONOS 12.6 % High 5.0-12.0 [facility] Comment on above: Order Comment: No: D o not add to previous draw Performed By: #### 8 [id number] #### [facility] [address] [place] [address], [place] Neutrophils/100 WBC (Bld) 69.9 % Normal 40.0-72.0 [facility] Comment on above: Order Comment: No: D o not add to previous draw Performed By: #### 8 [id number] #### [facility] [address] [place] [address], [facility] Nucleated RBC/100 WBC (Bld) [Ratio] 0 % Normal 0-0 [facility] Comment on above: Order Comment: No: D o not add to previous draw Performed By: #### 8 [id number] #### [facility] [address] [place] [address], [place] PLAT CNT 292 10*3/uL Normal 150-400 [facility] Comment on above: Order Comment: No: D o not add to previous draw Performed By: #### 8 [id number] #### [facility] [address] [place] [id number], [facility] RBC (Bld) [#/Vol] 3.82 10*6/uL Low 4.20-5.70 [facility] Comment on above: Order Comment: No: D o not add to previous draw Performed By: #### 8 [id number] #### [facility] [address] [place] [address], [place] WBC (Bld) [#/Vol] 11.28 10*3/uL High 4.00-10.60 [facility] Comment on above: Order Comment: No: D o not add to previous draw Performed By: #### 8 [id number] #### [facility] [address] [place] [address], [place] COMP METABOLIC PANELon 07-14 Albumin [Mass/Vol] 3.1 g/dL Low 3.5-5.7 [facility] Comment on above: Order Comment: No: D o not add to previous draw Performed By: #### 8 [id number] #### [facility] [address] [place] [address], [place] ALKALINE PHOSPH 77 IU/L Normal 34-104 [facility] Comment on above: Order Comment: No: D o not add to previous draw Performed By: #### 8 [id number] #### [facility] [address] [place] [address], [place] ALT [Catalytic activity/Vol] 8 U/L Normal 7-52 [facility] Comment on above: Order Comment: No: D o not add to previous draw Performed By: #### 8 [id number] #### [facility] [address] [place] [address], [place] AST [Catalytic activity/Vol] 11 U/L Low 13-39 [facility] Comment on above: Order Comment: No: D o not add to previous draw Performed By: #### 8 [id number] #### [facility] [address] [place] [address], [place] Bilirubin [Mass/Vol] 0.3 mg/dL Normal 0.3-1.0 [facility] Comment on above: Order Comment: No: D o not add to previous draw Performed By: #### 8 [id number] #### [facility] [address] [place] [address], [place] Calcium [Mass/Vol] 8.8 mg/dL Normal 8.6-10.3 [facility] Comment on above: Order Comment: No: D o not add to previous draw Performed By: #### 8 [id number] #### [facility] [address] [place] [address], [place] Chloride [Moles/Vol] 101 mmol/L Normal 98-107 [facility] Comment on above: Order Comment: No: D o not add to previous draw Performed By: #### 8 [id number] #### [facility] [address] [place] [address], [place] CO2 [Moles/Vol] 22 mmol/L Normal 21-31 [facility] Comment on above: Order Comment: No: D o not add to previous draw Performed By: #### 8 5499 #### [facility] [address] [place] [address], [place] Creatinine [Mass/Vol] 3.38 mg/dL High 0.70-1.30 [facility] Comment on above: Order Comment: No: D o not add to previous draw Performed By: #### 8 5499 #### [facility] [address] [place] [address], [place] eGFR- 23 ml/min/1.73sq m Abnormal >60 [facility] Comment on above: Order Comment: No: D o not add to previous draw Performed By: #### 8 5499 #### [facility] [address] [place] [address], [place] eGFR- non- 19 ml/min/1.73sq m Abnormal >60 [facility] Comment on above: Order Comment: No: D o not add to previous draw Performed By: #### 8 5499 #### [facility] [address] [place] [address], [place] Glucose [Mass/Vol] 324 mg/dL High 70-100 [facility] Comment on above: Order Comment: No: D o not add to previous draw Performed By: #### 8 5499 #### [facility] [address] [place] [address], [place] Potassium [Moles/Vol] 4.5 mmol/L Normal 3.5-5.1 [facility] Comment on above: Order Comment: No: D o not add to previous draw Performed By: #### 8 [id number] #### [facility] [address] [place] [id number], [facility] Protein [Mass/Vol] 6.7 g/dL Normal 6.0-8.3 [facility] Comment on above: Order Comment: No: D o not add to previous draw Performed By: #### 8 5499 #### [facility] [address] [place] [address], [place] Sodium [Moles/Vol] 131 mmol/L Low 136-145 [facility] Comment on above: Order Comment: No: D o not add to previous draw Performed By: #### 8 5499 #### [facility] [address] [place] [address], [facility] Urea nitrogen [Mass/Vol] 27 mg/dL High 7-25 [facility] Comment on above: Order Comment: No: D o not add to previous draw Performed By: #### 8 [id number] #### [facility] [address] [place] [address], [facility] CREATININE URINE RANDOMon Creatinine (U) [Mass/Vol] 101.0 mg/dL Normal [facility] Comment on above: Order Comment: No: D o not add to previous draw Result Comment: Ther e are no established reference values for random urine specimens Performed By: #### 8 [id number] #### [facility] [address] [place] [address], [place] FLUID CELL COUNTon 1 Basophils/100 WBC (Bld) 1 % Normal [facility] Comment on above: Performed By: #### 8 5499 #### [facility] [address] [place] [address], [place] Eosinophils/100 WBC (Bld) 11 % Normal [facility] Comment on above: Performed By: #### 8 5499 #### [facility] [address] [place] [address], [place] Lymphocytes/100 WBC (Bld) 49 % Normal [facility] Comment on above: Performed By: #### 8 [id number] #### [facility] [address] [place] [address], [place] MESOTHELIAL 12 % Normal [facility] Comment on above: Performed By: #### 8 5499 #### [facility] [address] [place] [address], [place] OTHER F1 Diff done by cytospin Normal [facility] Comment on above: Performed By: #### 8 5499 #### [facility] [address] [place] [address], [facility] OTHER F3 Checked by Evelyn Rodriguez M.D. Normal [facility] Comment on above: Result Comment: Resu lt changed by VHERR on 07/15/2020 13:33. The previous value was Preliminary report; verified report to follow. Performed By: #### 8 [id number] #### [facility] [address] [place] [address], [place] RBC 62406 RBC/uL Normal [facility] Comment on above: Performed By: #### 8 5499 #### [facility] [address] [place] [address], [place] SEGS 27 % Normal [facility] Comment on above: Performed By: #### 8 5499 #### [facility] [address] [place] [address], [place] SOURCE Thoracentesis Normal [facility] Comment on above: Performed By: #### 8 5499 #### [facility] [address] [place] [address], [place] TOTAL VOLUME 1L Normal [facility] Comment on above: Performed By: #### 8 5499 #### [facility] [address] [place] [address], [place] WBC 1762 WBC/uL Normal [facility] Comment on above: Result Comment: Some reference interval(s) and other method performance specifications have not been established for analytes on this body fluid. The test result must be integrated into the clinical context for interpretation. Performed By: #### 8 [id number] #### [facility] [address] [place] [address], [facility] GLUCOSE FLUID MISCon 021 Glucose [Mass/Vol] 326 mg/dL Normal [facility] Comment on above: Result Comment: The reference range and other method performance specifications have not been established for this test in fluids. the test result should be integrated into the clinical context for interpretation. Performed By: #### 3 4 #### [facility] [address] [place] [address], [facility] HEMOGLOBIN A1Con 07-14-2020 Glucose [Moles/Vol] 295 mmol/L Normal [facility] Comment on above: Order Comment: Left Peural Effusion Performed By: #### 3 0318 #### [facility] [address] [place] [address], [facility] HbA1c (Bld) [Mass fraction] 11.9 % High 4.0-6.0 [facility] Comment on above: Order Comment: Left Peural Effusion Performed By: #### 3 8 #### [facility] [address] [place] [address], [facility] HEPATITIS B SURFACE ANTIGEN QUALon 07-14-2020 HEP B SURF AG QUAL Non-Reactive Normal NONREACTIVE [facility] Comment on above: Order Comment: No: D o not add to previous draw Performed By: #### 3 1943 #### [facility] [address] [place] [address], [facility] HEPATITIS C ANTIBODYon 07-14 ANTI-HCV Non-Reactive Normal NONREACTIVE [facility] Comment on above: Order Comment: No: D o not add to previous draw Performed By: #### 3 1943 #### [facility] [address] [place] [address], [facility] LDH BLOODon 07-14-2020 LDH 176 Units/L Normal 140-271 [facility] Comment on above: Order Comment: Left Peural Effusion Performed By: #### 3 0318 #### [facility] [address] [place] [address], [place] LDH 133 Units/L Low 140-271 [facility] Comment on above: Order Comment: No: D o not add to previous draw Performed By: #### 8 [id number] #### [facility] [address] [place] [address], [place] LDH FLUIDon 07-14-2020 LDH 212 Units/L Normal [facility] Comment on above: Result Comment: The reference range and other method performance specifications have not been established for this test in fluids. the test result should be integrated into the clinical context for interpretation. Performed By: #### 3 1944 #### [facility] [address] [place] [address], [place] LIPID PROFILEon 07-14-2020 Cholesterol [Mass/Vol] 95 mg/dL Low 120-200 [facility] Comment on above: Order Comment: No: D o not add to previous draw Result Comment: CHOL ESTEROL REFERENCE RANGE: 20 YEARS AND OLDER CARDIOVASCULAR RISK Less than 200 mg/dl Low Risk 200 to 239 mg/dl Borderline Risk 240 mg/dl and greater High Risk Performed By: #### 8 [id number] #### [facility] [address] [place] [address], [place] Cholesterol in HDL [Mass/Vol] 36 mg/dL Normal 23-92 [facility] Comment on above: Order [...] #### 8 5499 #### [facility] [address] [place] [address], [place] Cholesterol in LDL [Mass/Vol] 37 mg/dL Normal 0-130 [facility] Comment on above: Order Comment: No: D o not add to previous draw Result Comment: LDL IS A CALCULATION LDL IS ONLY VALID IF THE TRIG IS LESS THAN 400. Performed By: #### 8 [id number] #### [facility] [address] [place] [address], [facility] Cholesterol.total/C holesterol in HDL [Mass ratio] 2.6 {ratio} Normal 0.0-4.5 [facility] Comment on above: Order Comment: No: D o not add to previous draw Performed By: #### 8 [id number] #### [facility] [address] [place] [address], [facility] NON-HDL CHOLESTEROL 59 mg/dL Normal [facility] Comment on above: Order Comment: No: D o not add to previous draw Performed By: #### 8 [id number] #### [facility] [address] [place] [address], [facility] Triglyceride [Mass/Vol] 109 mg/dL Normal 40-149 [facility] Comment on above: Order Comment: No: D o not add to previous draw Result Comment: TRIG LYCERIDE REFERENCE RANGE: 20 YEARS AND OLDER CARDIOVASCULAR RISK LESS THAN 150 mg/dl LOW RISK 150 TO 199 mg/dl BORDERLINE RISK 200 mg/dl AND GREATER HIGH RISK Performed By: #### 8 [id number] #### [facility] [address] [place] [address], [facility] VLDL CHOL 22 mg/dL Normal 0-40 [facility] Comment on above: Order Comment: No: D o not add to previous draw Performed By: #### 8 5499 #### [facility] [address] [place] [address], [facility] MAGNESIUM BLOODon 07-14-2020 Magnesium [Mass/Vol] 2.1 mg/dL Normal 1.9-2.7 [facility] Comment on above: Order Comment: No: D o not add to previous draw Performed By: #### 8 [id number] #### [facility] [address] [place] [address], [place] Magnesium [Mass/Vol] 2.0 mg/dL Normal 1.9-2.7 [facility] Comment on above: Performed By: #### 8 5499 #### [facility] [address] [place] [address], [place] PHOSPHORUS BLOODon Phosphate [Mass/Vol] 4.1 mg/dL Normal 2.5-5.0 [facility] Comment on above: Order Comment: No: D o not add to previous draw Performed By: #### 8 5499 #### [facility] [address] [place] [address], [place] Phosphate [Mass/Vol] 4.0 mg/dL Normal 2.5-5.0 [facility] Comment on above: Performed By: #### 8 5499 #### [facility] [address] [place] [address], [place] POC GLUCOSE LABon 07-14-2020 Glucose [Mass/Vol] 180 mg/dL High 70-100 [facility] Comment on above: Performed By: #### 8 5499 ####[facility] [place] [address], [place] Glucose [Mass/Vol] 198 mg/dL High 70-100 [facility] Comment on above: Performed By: #### 5 7307, 33540 #### [facility] [address] [place] [address], [place] Glucose [Mass/Vol] 265 mg/dL High 70-100 [facility] Comment on above: Performed By: #### 8 5499 #### [facility] [address] [place] [address], [place] Glucose [Mass/Vol] 305 mg/dL High 70-100 [facility] Comment on above: Performed By: #### 5 7307, 13953 #### [facility] [address] [place] [address], [place] Glucose [Mass/Vol] 301 mg/dL High 70-100 [facility] Comment on above: Performed By: #### 5 0103 #### [address] [address], [facility] PORTABLE CHEST 1 VIEWon 06-27 PORTABLE CHEST 1 VIEW [facility] Department of Radiology [address] [place] [id number] Patient Name: RASHARD LYMAN : 1960 Sex: M Age: Race: White Pt. Location: [address] [place] [address] Patient Status: I Ordered Date: 07/14/2020 1:40:00 [...] above Electronically signed: Patricia Damon. Transcribed by: [email or web address], User Resident: Electronically Signed by: PATRICIA DAMON @ 07/14/2020 03:24 PM Normal [facility] Comment on above: Order Comment: Evalu ate for Pneumothorax PORTABLE CHEST 1 VIEW [facility] Department of Radiology [address] [place] [address] Patient Name: RASHARD LYMAN : 1960 Sex: M Age: Race: White Pt. Location: [address] [place] [address] Patient Status: I Ordered Date: 07/13/2020 11:35:00 [...] pleural effusion. Approved by:Sy Guerra07/14/2020 6:04 AM. IValdemar,have reviewed the images and reports Electronically signed: Valdemar Foster. Transcribed by: [email or web address], User Resident: [email or web address] Electronically Signed by: VALDEMAR FOSTER @ 07/14/2020 06:31 AM I personally read this/these film(s) with this resident Normal [facility] Comment on above: Order Comment: evalu ate for Effusion PROTEIN ELECT Truong 07-14-2020 Protein [Mass/Vol] 6.0 g/dL Normal 6.0-8.3 [facility] Comment on above: Performed By: #### 3 0318 #### [facility] [address] [place] [address], [facility] PROTEIN ELECT Normal [facility] Comment on above: Result Comment: Decr eased albumin and elevated alpha 1 and 2 suggests acute inflammation. Performed By: #### 3 0318 #### [facility] [address] 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 Normal [facility] Comment on above: Performed By: #### 3 1944 #### [facility] [address] [place] [address], [place] PROTEIN TOTAL BLOODon 2020 Protein [Mass/Vol] 6.7 g/dL Normal 6.0-8.3 [facility] Comment on above: Order Comment: Left Peural Effusion Performed By: #### 3 0318 #### [facility] [address] [place] [address], [place] PROTHROMBIN TIMEon 1 INR Coag (PPP) [Relative time] 1.12 {INR} Normal 0.91-1.16 [facility] Comment on above: Order Comment: No: D o not add to previous draw Result Comment: [facility] P RECOMMENDED INR FOR WARFARIN THERAPY ------ [...] CHEST 1995;[id number]. Performed By: #### 5 7307, [address] #### [facility] [address] [facility]. [address] PT Coag (PPP) [Time] 14.4 s Normal 12.3-14.8 [facility] Comment on above: Order Comment: No: D o not add to previous draw Result Comment: ALL RESULTS MUST BE INTERPRETED WITH RESPECT TO BLOOD DRAWING ARTIFACT OR DILUTION ERROR OF ANTICOAGULANT AT THE TIME OF SAMPLING. Performed By: #### 5 7307, 91099 #### [facility] [address] [place] [address], [facility] SEDIMENTATION RATEon 021 SED RATE 32 mm/hr High 0-10 [facility] Comment on above: Performed By: #### 8 [id number] #### [facility] [address] [facility] [place] [address], [facility] SODIUM URINE RANDOMon 2020 Sodium (U) [Moles/Vol] 59 mmol/L Normal [facility] Comment on above: Order Comment: No: D o not add to previous draw Result Comment: Ther e are no established reference values for random urine specimens Performed By: #### 8 [id number] #### [facility] [address] [facility] [place] [address], [facility] T PROT FLUIDon 07-14-2020 Protein [Mass/Vol] 3.6 g/dL Normal [facility] Comment on above: Result Comment: The reference range and other method performance specifications have not been established for this test in fluids. the test result should be integrated into the clinical context for interpretation. Performed By: #### 3 1944 #### [facility] [address] [place] [address], [facility] T PROT UR Loretta 07-14-2020 U TOTAL PROTEIN 859.0 mg/dL Normal [facility] Comment on above: Order Comment: No: D o not add to previous draw Result Comment: Ther e are no established reference values for random urine specimens Performed By: #### [id number] #### [facility] [address] [facility]. [address] Performed By: #### 3 1944 #### [facility] [address] [place] [address], [facility] TROPONIN-Ion 07-14-2020 Troponin I.cardiac [Mass/Vol] 0.09 ng/mL High 0.00-0.04 [facility] Comment on above: Order Comment: No: D o not add to previous draw Result Comment: REFE RENCE RANGES: 0.00 - 0.04 ng/ml NORMAL 0.05 - 0.50 ng/ml INDETERMINATE > 0.50 ng/ml CONSISTENT WITH AN M.I. Performed By: #### 8 [id number] #### [facility] [address] [place] [address], [facility] Troponin I.cardiac [Mass/Vol] 0.07 ng/mL High 0.00-0.04 [facility] Comment on above: Order Comment: No: D o not add to previous draw Result Comment: REFE RENCE RANGES: 0.00 - 0.04 ng/ml NORMAL 0.05 - 0.50 ng/ml INDETERMINATE > 0.50 ng/ml CONSISTENT WITH AN M.I. Performed By: #### 8 [id number] #### [facility] [address] [place] [address], [facility] TSH3on 07-14-2020 TSH 3RD GENERATION 3.28 uIU/mL Normal 0.34-5.60 [facility] Comment on above: Order Comment: No: D o not add to previous draw Performed By: #### 8 [id number] #### [facility] [address] [place] [address], [place] URIC ACID BLOODon 07-14-2020 Urate [Mass/Vol] 7.1 mg/dL Normal 4.4-7.6 [facility] Comment on above: Performed By: #### 8 [id number] #### [facility] [address] [place] [address], [place] URINALYSIS REFLEXon 07-15-19 21 Appearance (U) SL CLOUDY Abnormal CLEAR [facility] Comment on above: Order Comment: Left Peural Effusion Performed By: #### 3 [id number] #### [facility] [address] [place] [address], [place] Bilirubin Ql (U) Negative Normal NEGATIVE [facility] Comment on above: Order Comment: Left Peural Effusion Performed By: #### 3 0318 #### [facility] [address] [place] [address], [place] Color (U) YELLOW Normal YELLOW [facility] Comment on above: Order Comment: Left Peural Effusion Performed By: #### 3 0318 #### [facility] [address] [place] [address], [place] EPIS FEW Normal FEW,OCC,NONE SEEN [facility] Comment on above: Order Comment: Left Peural Effusion Performed By: #### 3 0318 #### [facility] [address] [place] [address], [place] Glucose Ql (U) >=500 Abnormal NEGATIVE [facility] Comment on above: Order Comment: Left Peural Effusion Performed By: #### 3 0318 #### [facility] [address] [place] [address], [place] Hemoglobin Ql (U) TRACE Abnormal NEGATIVE [facility] Comment on above: Order Comment: Left Peural Effusion Performed By: #### 3 0318 #### [facility] [address] [place] [address], [facility] KETONE TRACE Abnormal NEGATIVE [facility] Comment on above: Order Comment: Left Peural Effusion Performed By: #### 3 0318 #### [facility] [address] [place] [address], [facility] LEUK JACIEL Negative Normal NEGATIVE [facility] Comment on above: Order Comment: Left Peural Effusion Performed By: #### 3 0318 #### [facility] [address] [place] [address], [facility] MUCUS THREADS OCC Abnormal NONE SEEN [facility] Comment on above: Order Comment: Left Peural Effusion Performed By: #### 3 0318 #### [facility] [address] [place] [address], [facility] Nitrite Ql (U) Negative Normal NEGATIVE [facility] Comment on above: Order Comment: Left Peural Effusion Performed By: #### 3 0318 #### [facility] [address] [facility] [place] [address], [facility] pH (U) 6.0 [pH] Normal 5.0-8.0 [facility] Comment on above: Order Comment: Left Peural Effusion Performed By: #### 3 0318 #### [facility] [address] [place] [address], [facility] Protein Ql (U) >=500 Abnormal NEGATIVE [facility] Comment on above: Order Comment: Left Peural Effusion Performed By: #### 3 0318 #### [facility] [address] [place] [address], [facility] RBC 0-2 Abnormal NONE SEEN [facility] Comment on above: Order Comment: Left Peural Effusion Performed By: #### 3 0318 #### [facility] [address] [place] [address], [facility] SPEC GRAV 1.017 Normal 1.015-1.020 [facility] Comment on above: Order Comment: Left Peural Effusion Performed By: #### 3 0318 #### [facility] [address] [place] [address], [facility] WBC UA 3-5 Abnormal NONE SEEN [facility] Comment on above: Order Comment: Left Peural Effusion Performed By: #### 3 0318 #### [facility] [address] [place] [address], [facility] Vital Signs Date Time Vital Sign Value Performing Clinician Facility 03-21-2021 15:40-0500 Body height 193.04 cm Judahmani Gomesangela Other [facility] Other 03-21-2021 15:40-0500 Body mass index (BMI) [Ratio] 39.02 kg/m2 Judahmani Gomesangela Other [facility] Other 03-21-2021 15:40-0500 Body temperature 97.8 [degF] Kike Jaki Other [facility] Other 03-21-2021 15:40-0500 Body weight 145.42 kg Judahmani Jaki Other [facility] Other 03-21-2021 15:40-0500 Diastolic blood pressure 84 mm[Hg] Judahmani Jaki Other [facility] Other 03-21-2021 15:40-0500 Respiratory rate 18 /min Judahmani Jaki Other [facility] Other 03-21-2021 15:40-0500 SaO2% (BldA) [Mass fraction] 96 % Judahmani Jaki Other [facility] Other 03-21-2021 15:40-0500 Systolic blood pressure 137 mm[Hg] Kike Pollack Other [facility] [employer] Other 08-25-2020 12:24-0400 Heart rate 82 /min Jose Valone Work Phone: [facility] 08-25-2020 12:24-0400 Respiratory rate 20 /min Jose Valone Work Phone: [facility] 08-25-2020 11:17-0400 Body temperature 98.7 [degF] Jose Valone Work Phone: [facility] 08-25-2020 11:17-0400 Diastolic blood pressure 94 mm[Hg] Jose Valone Work Phone: [facility] 08-25-2020 11:17-0400 SaO2% (BldA) [Mass fraction] 96 % Jose Valone Work Phone: [facility] 08-25-2020 11:17-0400 Systolic blood pressure 183 mm[Hg] Jose Valone Work Phone: [facility] 08-25-2020 06:00-0400 Body weight 160.5 kg Jose Valone Work Phone: [facility] 08-19-2020 14:17-0400 Body height 193.04 cm Jose Valone Work Phone: [facility] 08-18-2020 21:22-0400 Body height 193.04 cm Jose Valone Work Phone: [facility] 08-18-2020 21:22-0400 Body mass index (BMI) [Ratio] 43.8 kg/m2 Jose Valone Work Phone: [facility] 08-18-2020 21:22-0400 Body temperature 97.6 [degF] Jose Valone Work Phone: [facility] 08-18-2020 21:22-0400 Body weight 163.3 kg Jose Juarez Work Phone: [facility] 08-18-2020 21:22-0400 Diastolic blood pressure 80 mm[Hg] Jose Juarez Work Phone: [facility] 08-18-2020 21:22-0400 Heart rate 105 /min Jose Forteone Work Phone: [facility] 08-18-2020 21:22-0400 Respiratory rate 18 /min Jose Juarez Work Phone: [facility] 08-18-2020 21:22-0400 SaO2% (BldA) [Mass fraction] 94 % Jose Juarez Work Phone: [facility] 08-18-2020 21:22-0400 Systolic blood pressure 160 mm[Hg] Jose Juarez Work Phone: [facility] Encounters Encounter Date Encounter Type Care Provider Facility Start: 10-23-2023 End: 10-23-2023 ambulatory [facility] Start: 09-03-2023 End: 09-03-2023 ambulatory [facility] Start: 07-31-2023 End: 07-31-2023 ambulatory [facility] Start: 07-02-2023 End: 07-02-2023 ambulatory [facility] Start: 06-04-2023 End: 06-04-2023 ambulatory [facility] Start: 05-31-2023 End: 06-01-2023 ambulatory [facility] Start: 05-06-2023 End: 05-06-2023 ambulatory [facility] Start: 04-19-2023 End: 04-19-2023 ambulatory [facility] Start: 02-27-2023 End: 02-28-2023 ambulatory [facility] Start: 09-11-2022 End: 09-12-2022 [facility] Start: 08-28-2022 End: 08-29-2022 ambulatory CHINO Hopson [facility] Facility:H1 Start: 08-24-2022 End: 08-25-[address] JOSE JUAREZ Facility:H1 Start: 08-20-2022 End: 08-21-[address] JOSE JUAREZ Facility:H1 Start: 08-19-2022 Encounter for preprocedural cardiovascular examination CHINO Hopson [facility] Start: 08-19-2022 Encounter for preprocedural laboratory examination CHINO Hopson [facility] Start: 08-19-2022 Encounter for preprocedural respiratory examination [facility] Start: 08-15-2022 End: 08-16-[address] [...] Facility:H1 Start: 02-02-2022 End: 02-03-2022 ambulatory [facility] Facility:H1 Start: 01-26-2022 End: 01-27-2022 ambulatory PETER D [facility] Facility:H1 Start: 01-18-2022 End: 01-19-2022 ambulatory PETER D [facility] Facility:H1 Start: 01-15-2022 End: 01-15-2022 ambulatory [facility] Facility:H1 Start: 01-12-2022 End: 01-13-2022 ambulatory [facility] Facility:H1 Start: 01-10-2022 End: 01-11-2022 ambulatory [facility] D [facility] Facility:H1 Start: 01-02-2022 End: 01-03-2022 ambulatory [facility] Facility:H1 Start: 12-25-2021 End: 12-26-2021 ambulatory [facility] Facility:H1 Start: 12-21-2021 End: 12-22-2021 ambulatory SHAIKH Patricia DAVIS Facility:H1 Start: 12-18-2021 End: 12-19-2021 ambulatory [facility] Facility:H1 Start: 12-15-2021 End: 12-16-2021 ambulatory [facility] Facility:H1 Start: 12-11-2021 End: 12-12-2021 ambulatory [facility] Facility:H1 Start: 11-30-2021 End: 12-01-[address] CARLOS EDUARDO SU . Facility:H1 Start: 11-22-2021 End: 11-23-[address] CARLOS EDUARDO SU . Facility:H1 Start: 11-21-2021 End: 11-22-2021 ambulatory [facility] Facility:H1 Start: 11-14-[address] CARLOS EDUARDO SU . Faci lity:H1 Start: 11-13-2021 End: 11-14-2021 ambulatory PETER D [facility] Facility:H1 Start: 11-07-2021 End: 11-08-2021 ambulatory CHINO Hopson [facility] Facility:H1 Start: 10-31-2021 End: 11-01-2021 ambulatory CHINO Hopson [facility] Facility:H1 Start: 10-24-2021 End: 10-25-2021 ambulatory CHINO Hopson [facility] Facility:H1 Start: 10-17-2021 End: 10-18-2021 ambulatory CHINO Hopson [facility] Facility:H1 Start: 10-09-2021 End: 10-10-2021 ambulatory CHINO Hopson [facility] Facility:H1 Start: 03-21-2021 End: 03-21-2021 ambulatory Kkie Pollack Other [facility] [employer] Other Start: 03-21-2021 Office outpatient vi sit 25 minutes Kike Pollack [facility] Start: 10-20-2020 End: 10-21-2020 ambulatory [facility] Start: 09-28-2020 End: 09-28-2020 Patient encounter procedure Jose Juarez Work Phone: -Respiratory Therapy Start: 09-06-2020 End: 09-06-2020 Patient encounter procedure Jose Juarez Work Phone: -Electrodiagnostics Start: 08-18-2020 End: 08-25-2020 Evaluation and management of inpatient Jose Juarez Work Phone: -[facility] Start: 07-13-2020 End: 07-22-2020 Evaluation and management of inpatient SAVANNAH REYNOLDS Facility:[facility] Procedures Date Procedure Procedure Detail [...] identified in Blood by Culture Blood Culture [facility] Patient referral [facility] Immunizations Immunization Date Immunization Notes Care Provider Iker de la garza 05-27-2015 influenza, seasonal, injectable Kike Pollack Other [facility] Other 05-27-2015 pneumococcal polysaccharide vaccine, 23 valent Kkie Pollack Other [facility] Other Payers Date Payer Category Payer Unknown [id number] 1960 Unknown [id number] 2.16.8 40.1.839517.3.579.2.647 1960 Unknown [id number] 2.16. 840.1.111598.3.579.2.732 1960 Unknown [id number] 2.16.84 0.1.294592.3.579.2.593 1960 Unknown [id number] 2.16.84 0.1.147813.3.579.2.593 1960 Unknown [id number] 2.16.84 0.1.852364.3.579.2.593 1960 Unknown [id number] 2.16.84 0.1.891114.3.579.2.593 1960 Unknown [id number] 2.16.84 0.1.833211.3.579.2.593 1960 Unknown [id number] 2.16.84 0.1.629559.3.579.2.593 1960 Unknown [id number] 2.16.84 0.1.132690.3.579.2.593 1960 Unknown [id number] 2.16.84 0.1.439725.3.579.2.593 1960 Unknown [id number] 2.16.84 0.1.006032.3.579.2.593 1960 Unknown [id number] 2.16.84 0.1.319601.3.579.2.593 1960 Unknown [id number] 2.16.84 0.1.515664.3.579.2.593 1960 Unknown [id number] 2.16.84 0.1.196976.3.579.2.593 1960 Unknown [id number] 2.16.84 0.1.772935.3.579.2.593 1960 Unknown [id number] 2.16.84 0.1.110936.3.579.2.593 1960 Unknown [id number] 2.16.84 0.1.326271.3.579.2.593 1960 Unknown [id number] 2.16.84 0.1.685476.3.579.2.593 1960 Unknown [id number] 2.16.84 0.1.308854.3.579.2.593 1960 Unknown [id number] 2.16.84 0.1.597340.3.579.2.593 1960 Unknown [id number] 2.16.84 0.1.834838.3.579.2.593 1960 Unknown [id number] 2.16.84 0.1.286738.3.579.2.593 1960 Unknown [id number] 2.16.84 0.1.255920.3.579.2.593 1960 Unknown [id number] 2.16.84 0.1.648611.3.579.2.593 1960 Unknown [id number] 2.16.84 0.1.408011.3.579.2.593 1960 Unknown [id number] 2.16.84 0.1.581419.3.579.2.593 1960 Unknown [id number] 2.16.84 0.1.620038.3.579.2.593 1960 Unknown [id number] 2.16.84 0.1.461518.3.579.2.593 1960 Unknown [id number] 2.16.84 0.1.153293.3.579.2.593 1960 Unknown [id number] 2.16.84 0.1.320179.3.579.2.593 1960 Unknown [id number] 2.16.84 0.1.752686.3.579.2.593 1960 Unknown [id number] 2.16.84 0.1.785456.3.579.2.593 1960 Unknown [id number] 2.16.84 0.1.456107.3.579.2.593 1960 Unknown [id number] 2.16.84 0.1.523942.3.579.2.593 1960 Unknown [id number] 2.16.84 0.1.486162.3.579.2.593 1960 Unknown [id number] 2.16.84 0.1.596075.3.579.2.593 1960 Unknown [id number] 2.16.84 0.1.469088.3.579.2.593 1960 Unknown [id number] 2.16.84 0.1.739643.3.579.2.593 1960 Unknown [id number] 2.16.84 0.1.585351.3.579.2.593 1960 Unknown [id number] 2.16.84 0.1.190381.3.579.2.593 1960 Unknown [id number] 2.16.84 0.1.341611.3.579.2.593 1960 Unknown [id number] 2.16.84 0.1.589251.3.579.2.593 1960 Unknown [id number] 2.16.84 0.1.596070.3.579.2.593 1960 Unknown [id number] 2.16.84 0.1.211390.3.579.2.593 1960 Unknown [id number] 2.16.84 0.1.551495.3.579.2.593 1960 Unknown [id number] 2.16.84 0.1.952797.3.579.2.593 1960 Unknown [id number] 2.16.8 40.1.859698.3.579.2.1286 1960 Unknown [id number] 2.16.8 40.1.518540.3.579.2.1286 1960 Unknown [id number] 2.16.8 40.1.786145.3.579.2.1286 1960 Unknown [id number] 2.16.8 40.1.481714.3.579.2.1286 1960 Unknown [id number] 2.16.8 40.1.631408.3.579.2.1286 1960 Unknown [id number] 2.16.84 0.1.092204.3.579.2.1286 1960 Unknown [id number] 2.16.84 0.1.432192.3.579.2.1286 1959 Unknown [id number] Medicare Self Pay [id number] Self-pay Self Pay [id number] Social History Date Type Detail Facility Tobacco smoking status NHIS Unknown if ever smoked [facility] Start: 1960 Sex Assigned At Male F [facility] Start: 08-18-2020 Tobacco smoking status NHIS Unknown if ever smoked [facility] Start: 08-22-2020 Tobacco smoking status NHIS Never smoked tobacco (finding) [facility] Sex Assigned At Sex Assigned At Bir th [facility] Other Goals Date Patient Goal Desired Activity /State Functional Status Date Assessment Result Facility 08-25-2020 Functional status Patient at Baseline [facility] Mental Status Date Assessment Result Facility 08-25-2020 Cognitive function Cognitive Sta tus Patient at Baseline [facility] Clinical Notes 07-15-2020 to 08-20-2022 Note Date [...] authenticated by: PRISCA SANDERSON Date: 2022-08-20 13:00 [facility] 08-15-2022 Note EXAM: XR CHEST 2 [...] authenticated by: CHINO CABALLERO Date: 2022-08-15 15:06 [facility] 08-01-2022 Note PROCEDURE: XR FOOT L [...] by: JAMESON SALGUERO Date: 2022-08-01 07:[address] [facility] 03-01-2022 Note CONSULTATION CONSULTATION DATE: 03/01/2022 [...] with certain activities such as standing, walking, tattoo technician and 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 [facility] 03-01-2022 Note CONSULTATION PROCEDURE DATE: 03/01/2022 [...] pattern and patient tolerated procedure well. [facility] 12-22-2021 Note PROCEDURE: XR ANKLE LT [...] authenticated by: PRISCA SANDERSON Date: 2021-12-22 10:12 [facility] 12-22-2021 Note PROCEDURE: XR ANKLE LT [...] authenticated by: PRISCA SANDERSON Date: 2021-12-22 10:12 [facility] 12-22-2021 Note PROCEDURE: XR ANKLE LT [...] authenticated by: PRISCA SANDERSON Date: 2021-12-22 10:12 [facility] 12-22-2021 Note PROCEDURE: XR ANKLE LT 2V HISTORY: Pain ; left ankle external fixation application COMPARISON: None. FINDINGS: BONES:3 intraoperative spot fluoroscopic images demonstrate external fixation device surrounding the left ankle. IMPRESSION: External fixation device application. Electronically authenticated by: PRISCA SANDERSON Date: 2021-12-22 10:07 [facility] 12-12-2021 Note PROCEDURE: XR FOOT L [...] by: PRISCA SANDERSON Date: 2021-12-12 08:[address] [facility] 11-30-2021 Note CONSULTATION The patient returns [...] in clinic in three months' time. [facility] 11-22-2021 Note CONSULTATION CONSULTATION DATE: 11/22/2021 [...] to the clinic to receive those. [facility] 11-14-2021 Note PROCEDURE: XR FOOT L [...] by: PRISCA SANDERSON Date: 2021-11-14 15:[address] [facility] 11-07-2021 Note PROCEDURE: XR FOOT L [...] authenticated by: JAMESON SALGUERO Date: 2021-11-07 19:28 [facility] 03-21-2021 Evaluation note Encounter Date Diagnosis [...] takes midodrine as well as stated above. [facility] Other 03-27-2021 NoteMR#: [id number] I [facility] Pt. Name: Rashard Lyman Admitted: [...] chest pain. Also, there is mention on [facility] records of large inferior/lateral wall abnormality in [...] ON DISCHARGE: A (more content not included)...[facility]03-19-2021 NoteMR#: [id number] [facility] Pt. Name: Rashard Lyman Surgery Date: 07/14/2020 Room #: 3AB [id number] Date of : 1960 PROCEDURE NOTE ATTENDING: [...] Pham MD Date Trans: 07/15/2020 01:32 P/ [id number] cc: Nima Wynne MD [facility] Nabil Carcamo [address]ed[address] [facility] [address] NoteMR#: [id number] [facility] Pt. 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: Davis Pham Indications: Nura Munoz is 60 [...] Wynne MD Date Trans: 07/15/2020 12:53 P/ [id number] [facility] Diagnosis Onset Date Resolution Status Hyperglycemia acute Pneumonia acute Psoriasis acute 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 acute CKD (chronic kidney disease) stage 4, GFR 15-29 ml/min chronic COPD (chronic obstructive pulmonary disease) chronic 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 GERD (gastroesophageal reflux disease) chronic Obesities, morbid chronic Peripheral vascular occlusive disease chronic 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 [facility]* Diagnosis Onset Date Resolution Status MARISOL (acute kidney injury) ac [place] Anemia of renal disease acut e Atelectasis of left lung acu te Fibrothorax acute History of pleural effusion acute Metabolic acidosis acute Pericarditis acute Pleuritic chest pain acute Psoriasis acute 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 acute CKD (chronic kidney disease) stage 4, GFR 15-29 ml/min chronic COPD (chronic obstructive pulmonary disease) chronic 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 GERD (gastroesophageal reflux disease) chronic Hypertension chronic [id number] chronic Obesities, morbid chronic Peripheral vascular occlusive disease chronic Status post amputation of toe of right foot [facility]tr[facility] general Narrative - Reported* Type [...] HIS LOWER BACK Hospitalization History see above [facility] Other Hospital Discharge instructions Additional Instructions You are scheduled for an outpatient follow up ECHOCARDIOGRAM in 2 weeks at [facility] to re-assess your pericardial effusions on [...] knee Educate on high risk fall precautions [facility] Assessments No Assessments Information Available [...] 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 GERD (gastroesophageal reflux disease) Hypertension [id number] Obesities, morbid Peripheral vascular occlusive disease Status [...] 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 GERD (gastroesophageal reflux disease) Hypertension [id number] Obesities, morbid Peripheral vascular occlusive disease Status [...] 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 GERD (gastroesophageal reflux disease) Hypertension [id number] Obesities, morbid Peripheral vascular occlusive disease Status post amputation of toe of right foot Summary Purpose Family History No Family History Records Found Additional Source Comments (unrecognized sect ion and content) No Status Records FoundNo Status Records FoundNo Status Records FoundNo Status Records FoundNo Status Records FoundNo Status Records Found INFORMATION SOURCE (unrecogn ized section and content) DATE CREATED AUTHOR 09/11/2020 [facility] DATE CREATED AUTHOR AUTHOR'S ORGANIZ ATION 10/21/2020 [facility] DATE CREATED AUTHOR AUTHOR'S ORGANIZ ATION 08/03/2021 [facility] DATE CREATED AUTHOR AUTHOR'S ORGANIZ ATION 10/05/2022 [facility] DATE CREATED AUTHOR AUTHOR'S ORGANIZ ATION 06/03/2023 [facility] DATE CREATED AUTHOR AUTHOR'S ORGANIZ ATION 10/27/2023 [facility] Goals (unrecognized section and content) Goals [...] BE BASED ON THE PRIMARY CLINICAL RECORDS. [employer] provides no warranty or guarantee of the accuracy or completeness of information in this document.
== END 2023-11-19 15:31 | disposition home or self-care (01) ==
LOC: US 15:32
PROVIDERS: PCP Podiatrist Foot & Ankle Surgery; Visit Provider Family Medicine
DX: R60.0 Localized edema (principal); M79.605 Pain in left leg
CPT/HCPCS: 93971

== ENCOUNTER 2023-11-26 15:22 | Outpatient (OUT) | payer BC, SELFPAY ==
--- OUTSIDE RECORDS SUMMARY | 2023-11-26 15:47 | XMS_ITS | CCD ---
Author Organization [facility] Care Team Providers Care Fulfillment Coordinator Name Role Phone Jose Juarez Primary Care Provider [phone] Eugene Morel Admit Provider Eugene Morel Attending Provider [phone] Gordon Ewing Attending Provider [phone] Gautam Bazan Attending Provider SAVANNAH REYNOLDS Admitting Unavailable SAVANNAH REYNOLDS Attending Unavailable JOSE JUAREZ Primary Care Unavailable JOSE JUAREZ Referring Unavailable OR Procedure Practitioner Unavailab TRISHA Ozuna Surgeon Unavailable NIMA WYNNE Surgeon Unavailable OR Procedure Practitioner Unavailab Jose Andres Primary Care Provider Eugene Morel Admit Provider [phone] Gordon Ewing Attending Provider [phone] Gautam Bazan Attending Provider Latrice Lehman Attending Provider [phone] PROVIDER, UNKNOWN Attending Unavailable PROVIDER, UNKNOWN [...] Unavailable HIGHLANDER, CHINO D Consulting Unavailable HIGHLANDER, CHINO D Attending Unavailable VALKERMIT, DR GARCIA Primary Care Unavailable HIGHLANDER, CHINO Hopson Admitting Unavailable HIGHLANDER, CHINO Hopson Attending Unavailable VALONE, DR GARCIA Primary Care Unavailable HIGHLANDER, CHINO D Admitting Unavailable WEST, DR JAMESON Mckeon Consulting Unavailable HIGHLANDER, CHINO D Consulting Unavailable HIGHLANDER, PETER D Admitting [...] (1 source) exenatide Drug Allergy 07-14-19 [facility] Repository NSAIDs (5 sources) celecoxib; Translations: [Celebrex] Drug Allergy 07-14-19 Difficulty Breathing [facility] Repository Phenolphthalein (1 source) Phenolphthalein Drug Allergy 07-14-19 [facility] Repository (4 sources) celecoxib; Translations: [celecoxib] Drug Allergy 07-21-19 Difficulty Breathing, bad for kidney [facility] Repository (3 sources) Aspirin; Translations: [ASPIRIN] Drug Allergy 07-21-19 bad for kidney [facility] Repository (1 source) Amoxicillin Drug Allergy 07-09-19 20 [facility] Repository (1 source) celecoxib Drug Allergy 07-09-19 [facility] Repository (1 source) exenatide Drug Allergy 07-09-19 [facility] Repository (1 source) Phenolphthalein Drug Allergy 07-09-19 [facility] Repository (2 sources) exenatide; Translations: [EXENATIDE] Drug Allergy 07-21-19 [facility] Repository (2 sources) HYLAN G-F 20; Translations: [HYLAN G-F 20] [...] oral tablet (8 sources) Phosphate Binder Start: 04-29-2021 take 800 mg by mouth once at [...] 1 Resolved: 1 Chronic Chronic kidney disease (2 sources) Chronic kidney disease; Translations: [Chronic kidney disease, [...] LEFT ANKLE] Onset: 3 Chronic Other aftercare (7 sources) Other snf (current) drug therapy; Translations: [OTH RESIDENTIAL CURRENT DRUG THERAPY] Onset: 3 Episodic Other [...] Translations: [CONTACT W/AND (SUSP) EXPOS COVID-19] Onset: Past or Other Problems Problem Classification Problem [...] Onset: 06-27-2022 Episodic Other aftercare (1 source) terminologist (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; 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] Onset: 01-25-2022 Episodic [...] BLOOD UREA NITROGENon 2023 Urea nitrogen [Mass/Vol] 41 mg/dL High 5-27 [facility] Comment on above: Performed By: #### C IRENE, 3094-0, MECHANIC CHIEF, ELEC #### [facility] ([id number]) [address], [address] [place] [address] CBC AND AUTO DIFFon 11-18- 24 ABSOLUTE BASOPHIL 0.2 X10E9/L Normal 0.0-0.2 [facility] Comment on above: Performed By: #### C IRENE, 3094-0, MECHANIC CHIEF, ELEC #### [facility] ([id number]) [address], [facility] [address] [place] [address] Basophils/100 WBC (Bld) 1.9 % Normal [facility] Comment on above: Performed By: #### Gabrielle BONILLA, 3094-0, MECHANIC CHIEF, ELEC #### [facility] ([id number]) [address], [address] [place] [address] KATHERINE 1+ Abnormal NONE [facility] Comment on above: Performed By: #### Gabrielle BONILLA, 3094-0, MECHANIC CHIEF, ELEC #### [facility] ([id number]) [address], [address] [place] [address] Eosinophils (Bld) [#/Vol] 0.4 10*3/uL Normal 0.0-0.4 [facility] Comment on above: Performed By: #### Gabrielle BONILLA, 3094-0, MECHANIC CHIEF, ELEC #### [facility] ([id number]) [address], [address] [place] [address] Eosinophils/100 WBC (Bld) 3.8 % Normal [facility] Comment on above: Performed By: #### Gabrielle BONILLA, 3094-0, MECHANIC CHIEF, ELEC #### [facility] ([id number]) [address], [address] [place] [address] Erythrocyte distribution width (RBC) [Ratio] 14.4 % Normal 11.5-15.0 [facility] Comment on above: Performed By: #### C BCA, 3094-0, MECHANIC CHIEF, ELEC #### [facility] ([id number]) [address], [facility] [address] [place] [address] Hematocrit (Bld) [Volume fraction] 40.3 % Normal 39-49 [facility] Comment on above: Performed By: #### C BCA, 3094-0, MECHANIC CHIEF, ELEC #### [facility] ([id number]) [address], [facility] [address] [place] [address] Hemoglobin (Bld) [Mass/Vol] 13.4 g/dL Normal 13.0-17.0 [facility] Comment on above: Performed By: #### C BCA, 3094-0, MECHANIC CHIEF, ELEC #### [facility] ([id number]) [address] [address] [place] [address] Lymphocytes (Bld) [#/Vol] 2.0 10*3/uL Normal 1.0-3.5 [facility] Comment on above: Performed By: #### C BCA, 3094-0, MECHANIC CHIEF, ELEC #### [facility] ([id number]) [address], [facility] [address] [place] [address] Lymphocytes/100 WBC (Bld) 21.7 % Normal [facility] Comment on above: Performed By: #### C BCA, 3094-0, MECHANIC CHIEF, ELEC #### [facility] ([id number]) [address], [facility] [address] [place] [address] MCH (RBC) [Entitic mass] 29.6 pg Normal 27-34 [facility] Comment on above: Performed By: #### C BCA, 3094-0, MECHANIC CHIEF, ELEC #### [facility] ([id number]) [address], [facility] [address] [place] [address] MCHC (RBC) [Mass/Vol] 33.4 g/dL Normal 32-36 [facility] Comment on above: Performed By: #### C IRENE, 3094-0, MECHANIC CHIEF, ELEC #### [facility] ([id number]) [address], [address] [place] [address] MCV (RBC) [Entitic vol] 89 fL Normal 80-100 [facility] Comment on above: Performed By: #### C IRENE, 3094-0, MECHANIC CHIEF, ELEC #### [facility] ([id number]) [address], [address] [place] [address] Monocytes (Bld) [#/Vol] 0.6 10*3/uL Normal 0-0.9 [facility] Comment on above: Performed By: #### C IRENE, 3094-0, MECHANIC CHIEF, ELEC #### [facility] ([id number]) [address], [address] [place] [address] Monocytes/100 WBC (Bld) 6.6 % Normal [facility] Comment on above: Performed By: #### C IRENE, 3094-0, MECHANIC CHIEF, ELEC #### [facility] ([id number]) [address], [address] [place] [address] Neutrophils (Bld) [#/Vol] 6.1 10*3/uL Normal 1.5-6.6 [facility] Comment on above: Performed By: #### C IRENE, 3094-0, MECHANIC CHIEF, ELEC #### [facility] ([id number]) [address], [address] [place] [address] Platelet mean volume (Bld) [Entitic vol] 8.0 fL Normal 7-12 [facility] Comment on above: Performed By: #### C IRENE, 3094-0, MECHANIC CHIEF, ELEC #### [facility] ([id number]) [address], [address] [place] [address] Platelets (Bld) [#/Vol] 253 10*3/uL Normal 150-450 [facility] Comment on above: Performed By: #### C BCA, 3094-0, MECHANIC CHIEF, ELEC #### [facility] ([id number]) [address], [facility] [address] [place] [address] RBC COUNT 4.54 X10E12/L Normal 4.10-5.70 [facility] Comment on above: Performed By: #### C BCA, 3094-0, MECHANIC CHIEF, ELEC #### [facility] ([id number]) [address], [address] [address] SEG NEUTROPHIL 66.0 % Normal [facility] Comment on above: Performed By: #### C BCA, 3094-0, MECHANIC CHIEF, ELEC #### [facility] ([id number]) [address], [address] [address] WBC (Bld) [#/Vol] 9.3 10*3/uL Normal 4.0-11.0 [facility] Comment on above: Performed By: #### C BCA, 3094-0, MECHANIC CHIEF, ELEC #### [facility] ([id number]) [address], [address] [address] CREATININEon 11-19-2023 Creatinine [Mass/Vol] 3.18 mg/dL High 0.60-1.30 [facility] Comment on above: Result Comment: METH OD TRACEABLE TO IDMS STANDARD Performed By: #### C BCA, 3094-0, MECHANIC CHIEF, ELEC #### [facility] ([id number]) [address] [address] GFR/1.73 sq M.predicted among non-blacks MDRD (S/P/Bld) [Vol rate/Area] 21 mL/min/{1.73_m2} Low >59 [facility] Comment on above: Result Comment: Reported eGFR is based on the CKD-EPI 2020 equation that does not use a race coefficient. Performed By: #### C BCA, 3094-0, MECHANIC CHIEF, ELEC #### [facility] ([id number]) [address] [place] [address] ELECTROLYTESon 11-19-2023 Anion gap [Moles/Vol] 9 mmol/L Normal 5-15 [facility] Comment on above: Performed By: #### C BCA, 3094-0, MECHANIC CHIEF, ELEC #### [facility] ([id number]) [address], [address] [place] [address] Chloride [Moles/Vol] 100 mmol/L Normal 98-109 [facility] Comment on above: Performed By: #### C BCA, 3094-0, MECHANIC CHIEF, ELEC #### [facility] ([id number]) [address] [place] [address] CO2 [Moles/Vol] 22 mmol/L Normal 22-32 [facility] Comment on above: Performed By: #### C BCA, 3094-0, MECHANIC CHIEF, ELEC #### [facility] ([id number]) [address], [address] [place] [address] Potassium [Moles/Vol] 3.9 mmol/L Normal 3.5-5.0 [facility] Comment on above: Performed By: #### C BCA, 3094-0, MECHANIC CHIEF, ELEC #### [facility] ([id number]) [address], [address] [place] [address] Sodium [Moles/Vol] 131 mmol/L Low 134-146 [facility] Comment on above: Performed By: #### C BCA, 3094-0, MECHANIC CHIEF, ELEC #### [facility] ([id number]) [address] [place] [address] BLOOD UREA NITROGENon 2023 Urea nitrogen [Mass/Vol] 35 mg/dL High 5-27 [facility] Comment on above: Performed By: #### B MP, CBCA, 1988-, 70619-7 #### [facility] ([id number]) [address] [place] [address] #### 35867-5 #### [facility] ([id number]) [address] [place] [address] CALCIUMon 10-23-2023 Calcium [Mass/Vol] 8.1 mg/dL Low 8.5-10.5 [facility] Comment on above: Performed By: #### B MP, CBCA, 1987-08, 47573-8 #### [facility] ([id number]) [address] [place] [address] #### 44420-5 #### [facility] ([id number]) [address], [address] [place] [address] CBC AND AUTO DIFFon 10-23-19 24 ABSOLUTE BASOPHIL 0.0 X10E9/L Normal 0.0-0.2 [facility] Comment on above: Performed By: #### B MP, CBCA, 1987-08, 33353-4 #### [facility] ([id number]) [address] [place] [address] #### 98470-2 #### [facility] ([id number]) [address] [place] [address] ABSOLUTE NEUTROPHIL 5.4 X10E9/L Normal 1.5-6.6 [facility] Comment on above: Performed By: #### B MP, CBCA, 1987-08, 86065-9 #### [facility] ([id number]) [address] [place] [address] #### 56681-2 #### [facility] ([id number]) [address] [place] [address] Basophils/100 WBC (Bld) 0.5 % Normal [facility] Comment on above: Performed By: #### B MP, CBCA, #### [facility] ([id number]) [address] [place] [address] #### 21378-1 #### [facility] ([id number]) [address], [address] [place] [address] Eosinophils (Bld) [#/Vol] 0.3 10*3/uL Normal 0.0-0.4 [facility] Comment on above: Performed By: #### B MP, CBCA, #### [facility] ([id number]) [address] [place] [address] #### 63766-3 #### [facility] ([id number]) [address], [address] [place] [address] Eosinophils/100 WBC (Bld) 3.2 % Normal [facility] Comment on above: Performed By: #### B MP, CBCA, #### [facility] ([id number]) [address] [place] [address] #### 50328-2 #### [facility] ([id number]) [address], [address] [place] [address] Erythrocyte distribution width (RBC) [Ratio] 14.4 % Normal 11.5-15.0 [facility] Comment on above: Performed By: #### B MP, CBCA, #### [facility] ([id number]) [address] [place] [address] #### 36878-6 #### [facility] ([id number]) [address], [address] [place] [address] Hematocrit (Bld) [Volume fraction] 39.7 % Normal 39-49 [facility] Comment on above: Performed By: #### B MP, CBCA, 1987-08, #### [facility] ([id number]) [address] [place] [address] #### 89516-1 #### [facility] ([id number]) [address], [address] [place] [address] Hemoglobin (Bld) [Mass/Vol] 13.1 g/dL Normal 13.0-17.0 [facility] Comment on above: Performed By: #### B MP, CBCA, 1987-08, #### [facility] ([id number]) [address] [place] [address] #### 01758-5 #### [facility] ([id number]) [address] [place] [address] Lymphocytes (Bld) [#/Vol] 2.1 10*3/uL Normal 1.0-3.5 [facility] Comment on above: Performed By: #### B MP, CBCA, 1987-08, 02353-7 #### [facility] ([id number]) [address] [place] [address] #### 68450-0 #### [facility] ([id number]) [address] [place] [address] Lymphocytes/100 WBC (Bld) 24.5 % Normal [facility] Comment on above: Performed By: #### B MP, CBCA, 1987-08, 62691-2 #### [facility] ([id number]) [address] [place] [address] #### 71444-9 #### [facility] ([id number]) [address], [address] [place] [address] MCH (RBC) [Entitic mass] 29.0 pg Normal 27-34 [facility] Comment on above: Performed By: #### B MP, CBCA, 1987-08, 65179-9 #### [facility] ([id number]) [address] [place] [address] #### 15381-7 #### [facility] ([id number]) [address], [address] [place] [address] MCHC (RBC) [Mass/Vol] 32.9 g/dL Normal 32-36 [facility] Comment on above: Performed By: #### B MP, CBCA, 1987-08, 82765-9 #### [facility] ([id number]) [address] [place] [address] #### 39281-2 #### [facility] ([id number]) [address], [address] [place] [address] MCV (RBC) [Entitic vol] 88 fL Normal 80-100 [facility] Comment on above: Performed By: #### B MP, CBCA, 1987-08, 40954-6 #### [facility] ([id number]) [address] [place] [address] #### 06032-8 #### [facility] ([id number]) [address], [address] [place] [address] Monocytes (Bld) [#/Vol] 0.8 10*3/uL Normal 0-0.9 [facility] Comment on above: Performed By: #### B MP, CBCA, 1987-08, 10979-4 #### [facility] ([id number]) [address] [place] [address] #### 66524-4 #### [facility] ([id number]) [address] [place] [address] Monocytes/100 WBC (Bld) 9.2 % Normal [facility] Comment on above: Performed By: #### B MP, CBCA, 1987-08, 59594-6 #### [facility] ([id number]) [address] [place] [address] #### 99667-0 #### [facility] ([id number]) [address] [place] [address] Neutrophils/100 WBC (Bld) 62.6 % Normal [facility] Comment on above: Performed By: #### B MP, CBCA, 1987-08, 13336-3 #### [facility] ([id number]) [address] [place] [address] #### 29683-6 #### [facility] ([id number]) [address] [place] [address] Platelet mean volume (Bld) [Entitic vol] 8.6 fL Normal 7-12 [facility] Comment on above: Performed By: #### B MP, CBCA, 1987-08, 36644-4 #### [facility] ([id number]) [address] [place] [address]9630 #### 16631-5 #### [facility] ([id number]) [address] [place] [address] Platelets (Bld) [#/Vol] 247 10*3/uL Normal 150-450 [facility] Comment on above: Performed By: #### B MP, CBCA, 1987-08, 48552-7 #### [facility] ([id number]) [address] [place] [address] #### 65786-7 #### [facility] ([id number]) [address] [place] [address] RBC COUNT 4.51 X10E12/L Normal 4.10-5.70 [facility] Comment on above: Performed By: #### B JAMES RONDON, 1987-08, 65907-7 #### [facility] ([id number]) [address] [place] [address]377 #### 52407-9 #### [facility] ([id number]) [address] [facility] [address] [place] [address] WBC (Bld) [#/Vol] 8.5 10*3/uL Normal 4.0-11.0 [facility] Comment on above: Performed By: #### B JAMES RONDON, 1987-08, 62969-5 #### [facility] ([id number]) [address] [place] [address] 64453 #### 88633-3 #### [facility] ([id number]) [address] [facility], [address] [place] [address] CREATININEon 10-23-2023 Creatinine [Mass/Vol] 2.69 mg/dL High 0.70-1.20 [facility] Comment on above: Result Comment: METH OD TRACEABLE TO IDMS STANDARD Performed By: #### B JAMES RONDON, 1987-08, 22418-9 #### [facility] ([id number]) [address] [place] [address] 29834 #### 32423-9 #### [facility] ([id number]) [address] [facility] [place] [address] GFR/1.73 sq M.predicted among non-blacks MDRD (S/P/Bld) [Vol rate/Area] 26 mL/min/{1.73_m2} Low >59 [facility] Comment on above: Result Comment: Reported eGFR is based on the CKD-EPI 2020 equation that does not use a race coefficient. Performed By: #### B JAMES RONDON, 1987-08, #### [facility] ([id number]) [address] [place] [address]3988 #### 35037-6 #### [facility] ([id number]) [address] [place] [address] Calcium.ionized (Bld) [Moles /Vol]on 10-23-2023 PORTABLE ICA 4.8 mg/dL Normal 4.5-5.3 [facility] Comment on above: Performed By: #### B ALCON, CBCA, 1987-08, 64506-0 #### [facility] ([id number]) [address] [place] [address] 44546 #### 94088-1 #### [facility] ([id number]) [address] [place] [address] ELECTROLYTESon 10-23-2023 Anion gap [Moles/Vol] 5 mmol/L Normal 5-15 [facility] Comment on above: Performed By: #### B ALCON, CBCA, 1987-08, 21017-2 #### [facility] ([id number]) [address] [place] [address] 87909 #### 45970-1 #### [facility] ([id number]) [address] [place] [address] Chloride [Moles/Vol] 108 mmol/L Normal 98-109 [facility] Comment on above: Performed By: #### B MP, CBCA, 1987-08, 66325-7 #### [facility] ([id number]) [address] [place] [address] 12781 #### 64268-2 #### [facility] ([id number]) [address] [place] [address] CO2 [Moles/Vol] 18 mmol/L Low 22-32 [facility] Comment on above: Performed By: #### B MP, CBCA, 1987-08, 22949-0 #### [facility] ([id number]) [address] [place] [address] 93474 #### 92203-1 #### [facility] ([id number]) [address] [place] [address] Potassium [Moles/Vol] 4.1 mmol/L Normal 3.5-5.0 [facility] Comment on above: Performed By: #### B ALCON, CBCA, 1987-08, 51071-7 #### [facility] ([id number]) [address] [place] [address] 18240 #### 49451-8 #### [facility] ([id number]) [address] [facility], [address] [place] [address] Sodium [Moles/Vol] 131 mmol/L Low 134-146 [facility] Comment on above: Performed By: #### B ALCON, CBCA, 1987-08, 54887-5 #### [facility] ([id number]) [address] [place] [address] #### 01222-2 #### [facility] ([id number]) [address], [address] [place] [address] ESR Photometric method (Bld) [Velocity]on 10-23-2023 ESR, ERYTHROCYTE SEDIMENTATION RATE 89 mm/h High 0-20 [facility] Comment on above: Performed By: #### B ALCON, CBCA, 1987-08, 05728-7 #### [facility] ([id number]) [address] [place] [address]60 #### [id number] #### [facility] ([id number]) [address], [address] [place] [address] HGB A1C (GLYCO-HGB)on 06-26- 2024 Glucose [Mass/Vol] 235 mg/dL Normal [facility] Comment on above: Performed By: #### B ALCON, CBCA, 1987-08, 35937-8 #### [facility] ([id number]) [address] [place] [address] #### 13863-5 #### [facility] ([id number]) [address] [facility], [address] [place] [address] HbA1c (Bld) [Mass fraction] 9.8 % High 4.4-5.6 [facility] Comment on above: Result Comment: NOTE ADA Guidelines Result HgbA1c Normal : less than 5.7 % Prediabetes : 5.7 % to 6.4 % Diabetes : > 6.4 % Use with caution in patients with abnormal hemoglobin variants as the half-life of red blood cells and in vivo glycation rates are affected. Performed By: #### B ALCON CBCA, 1987-08, 85931-8 #### [facility] ([id number]) [address] [place] [address] #### 72931-4 #### [facility] ([id number]) [address], [address] [place] [address] LIVER PANELon 10-23-2023 Albumin [Mass/Vol] 2.8 g/dL Low 3.2-5.3 [facility] Comment on above: Performed By: #### B ALCON CBCA, 1987-08, 16471-0 #### [facility] ([id number]) [address] [place] [address] #### 06596-4 #### [facility] ([id number]) [address], [address] [place] [address] ALP [Catalytic activity/Vol] 86 U/L Normal 39-130 [facility] Comment on above: Performed By: #### B MP, CBCA, 1987-08, 25941-0 #### [facility] ([id number]) [address] [place] [address] #### [id number] #### [facility] ([id number]) [address], [address] [place] [address] ALT [Catalytic activity/Vol] 19 U/L Normal 0-40 [facility] Comment on above: Performed By: #### B MP, CBCA, 1987-08, 02688-6 #### [facility] ([id number]) [address] [place] [address] 36516 #### 89719-7 #### [facility] ([id number]) [address], [address] [place] [address] AST [Catalytic activity/Vol] 15 U/L Normal 0-41 [facility] Comment on above: Performed By: #### Laura MP, CBCA, 1987-08, 99694-8 #### [facility] ([id number]) [address] [place] [address] 23804 #### 66102-9 #### [facility] ([id number]) [address], [address] [place] [address] Bilirubin [Mass/Vol] 0.5 mg/dL Normal 0.3-1.2 [facility] Comment on above: Performed By: #### B MP, CBCA, 1987-08, 14591-6 #### [facility] ([id number]) [address] [place] [address] 06188 #### 28516-2 #### [facility] ([id number]) [address] [place] [address] Bilirubin.indirect [Mass/Vol] mg/dL Normal 0.0-0.4 [facility] Comment on above: Performed By: #### Laura RONDON CBCA, 1987-08, 80681-4 #### [facility] ([id number]) [address] [place] [address] 45682 #### 64482-6 #### [facility] ([id number]) [address], [address] [place] [address] Protein [Mass/Vol] 6.4 g/dL Normal 6.0-8.0 [facility] Comment on above: Performed By: #### Laura RONDON CBCJarrett, 1987-08, 88136-3 #### [facility] ([id number]) [address] [place] [address] 97130 #### 20672-6 #### [facility] ([id number]) [address], [address] [place] [address] Lipid 1996 panelon 4 Cholesterol [Mass/Vol] 135 mg/dL Low 150-200 [facility] Comment on above: Performed By: #### JAMES Sanchez MP, 1987-08, 98827-8 #### [facility] ([id number]) [address] [place] [address] 05735 #### 16806-3 #### [facility] ([id number]) [address], [address] [place] [address] Cholesterol in HDL [Mass/Vol] 40 mg/dL Normal >39 [facility] Comment on above: Result Comment: HDL <40 mg/dL - High Risk HDL > or = 40mg/dL- Desirable HDL >60 mg/dL - Negative Risk Performed By: #### B ALCON, CBCA, 1987-08, 21073-6 #### [facility] ([id number]) [address] [place] [address] 93313 #### 22472-2 #### [facility] ([id number]) [address], [address] [place] [address] Cholesterol in LDL [Mass/Vol] 57 mg/dL Normal <130 [facility] Comment on above: Result Comment: LDL <100 mg/dL - Desirable LDL >160 mg/dL - High Risk Performed By: #### JAMES Sanchez MP, 1987-08, 63787-6 #### [facility] ([id number]) [address] [place] [address] 48196 #### 81448-6 #### [facility] ([id number]) [address], [address] [place] [address] Cholesterol in VLDL [Mass/Vol] 38 mg/dL High 0-30 [facility] Comment on above: Performed By: #### Laura RONDON CBCA, 1987-08, 70403-6 #### [facility] ([id number]) [address] [place] [address] 48179 #### 26272-8 #### [facility] ([id number]) [address], [address] [place] [address] CHOLESTEROL:HDL 3.4 Normal 1.0-5.0 [facility] Comment on above: Performed By: #### SEVEN Sanchez MPA, 1987-08, 11968-3 #### [facility] ([id number]) [address] [place] [address] 50738 #### 05828-2 #### [facility] ([id number]) [address], [address] [place] [address] Triglyceride [Mass/Vol] 192 mg/dL High 27-150 [facility] Comment on above: Performed By: #### B JAMES RONDON, 57175-3 #### [facility] ([id number]) [address] [place] [address] 76011 #### 07244-9 #### [facility] ([id number]) [address] [facility], [address] [place] [address] MAGNESIUMon 10-23-2023 Magnesium [Mass/Vol] 2.1 mg/dL Normal 1.8-2.6 [facility] Comment on above: Performed By: #### B JAMES RONDON, 41510-8 #### [facility] ([id number]) [address] [place] [address] 54432 #### 51714-9 #### [facility] ([id number]) [address] [facility], [address] [place] [address] Natriuretic peptide.B prohor adrianne N-Terminal IA [Mass/Vol]on 10-23-2023 Natriuretic peptide B (Bld) [Mass/Vol] 1528 pg/mL High <=88 [facility] Comment on above: Result Comment: NOTE NT-proBNP [...] absence of renal failure. Test Performed by: [facility] [place] [id number] Primer Boxer: Brittani Nieves Ph.D.; CLIA# [id number] Performed By: #### B JAMES RONDON, 63338-0 #### [facility] ([id number]) [address] [place] [address] 15393 #### 93491-7 #### [facility] ([id number]) [address] [facility], [address] [place] [address] Prostate specific Ag [Mass/V ol]on 10-23-2023 PSA SCREEN 1.65 ng/mL Normal 0.00-4.00 [facility] Comment on above: Result Comment: The method used for this test is Rufus Rommel DXI chemiluminescent immunoassay. Values obtained by different assay methods cannot be used interchangeably. Performed By: #### B ALCON CBCA, 07080-2 #### [facility] ([id number]) [address] [place] [address] 15807 #### 15068-0 #### [facility] ([id number]) [address] [facility], [address] [place] [address] Vitamin D+Metabolites [Mass/ Vol]on 10-23-2023 VITAMIN D 25 HYD TOT 8.3 ng/mL Low 30-100 [facility] Comment on above: Result Comment: Vitamin D status 25 [place] Vitamin D Deficiency <20 ng/mL Insufficiency 20-29 ng/mL Sufficiency 30-100 ng/mL Toxicity >100 ng/mL NOTE: A pediatric reference range has not been established by the rope cleaner of this kit. The [employer] [employer] recommends a Vitamin D level of = or >20ng/mL in infants and children. Performed By: #### B ALCON CBCA, 1987-08, 22115-4 #### [facility] ([id number]) [address] [place] [address] 34198 #### 07216-7 #### [facility] ([id number]) [address] [facility], [address] [place] [address] BLOOD UREA NITROGENon 2023 Urea nitrogen [Mass/Vol] 33 mg/dL High 5-27 [facility] Comment on above: Performed By: #### B JAMES RONDON, 1987-08, 88806-3 #### [facility] ([id number]) [address] [place] [address] 15947 #### 13686-8 #### [facility] ([id number]) [address], [address] [place] [address] CREATININEon 09-03-2023 Creatinine [Mass/Vol] 2.42 mg/dL High 0.70-1.20 [facility] Comment on above: Result Comment: METH OD TRACEABLE TO IDMS STANDARD Performed By: #### B JAMES RONDON, 1987-08, #### [facility] ([id number]) [address] [place] [address] 97481 #### 17944-0 #### [facility] ([id number]) [address], [address] [place] [address] GFR/1.73 sq M.predicted among non-blacks MDRD (S/P/Bld) [Vol rate/Area] 29 mL/min/{1.73_m2} Low >59 [facility] Comment on above: Result Comment: Reported eGFR is based on the CKD-EPI 2020 equation that does not use a race coefficient. Performed By: #### B JAMES RONDON, 1987-08, 78065-4 #### [facility] ([id number]) [address] [place] [address] 40674 #### 19193-6 #### [facility] ([id number]) [address], [address] [place] [address] ELECTROLYTESon 09-03-2023 Anion gap [Moles/Vol] 7 mmol/L Normal 5-15 [facility] Comment on above: Performed By: #### B JAMES RONDON, 1987-08, #### [facility] ([id number]) [address] [place] [address] 59881 #### 90818-0 #### [facility] ([id number]) [address] [place] [address], [address] [place] [address] Chloride [Moles/Vol] 106 mmol/L Normal 98-109 [facility] Comment on above: Performed By: #### JAMES Sanchez MP, 1987-08, 10897-3 #### [facility] ([id number]) [address] [place] [address] 46315 #### 80444-3 #### [facility] ([id number]) [address] [place] [address], [address] [place] [address] CO2 [Moles/Vol] 21 mmol/L Low 22-32 [facility] Comment on above: Performed By: #### JAMES Sanchez MP, 1987-08, 97630-7 #### [facility] ([id number]) [address] [place] [address] 69193 #### 22868-5 #### [facility] ([id number]) [address] [place] [address], [address] [place] [address] Potassium [Moles/Vol] 4.2 mmol/L Normal 3.5-5.0 [facility] Comment on above: Performed By: #### JAMES Sanchez MP, 1987-08, 34186-0 #### [facility] ([id number]) [address] [place] [address] 43888 #### 79754-8 #### [facility] ([id number]) [address] [place] [address], [address] [place] [address] Sodium [Moles/Vol] 134 mmol/L Normal 134-146 [facility] Comment on above: Performed By: #### SEVEN Sanchez MPA, 1987-08, 38810-5 #### [facility] ([id number]) [address] [place] [address] 70266 #### 03035-1 #### [facility] ([id number]) [address] [place] [address], [address] [place] [address] Natriuretic peptide.B prohor adrianne N-Terminal [Mass/Vol]on 09-03-2023 NT Pro BNP See Below Normal [facility] Comment on above: Result Comment: NOTE TEST RESULT FLAG UNIT REF.RANGE ---- PRO B Natr Peptide 933 H pg/mL <125 Test Performed By: [facility] [address] [place] [address] Grocery Associate: Tyler Valle III, M.D. CLIA #[id number] Performed By: #### JAMES Sanchez MP, 1987-08, 49604-5 #### [facility] ([id number]) [address] [place] [address] 77384 #### 83927-1 #### [facility] ([id number]) [address] [place] [address], [address] [place] [address] BLOOD UREA NITROGENon 2023 Urea nitrogen [Mass/Vol] 38 mg/dL High 5-27 [facility] Comment on above: Performed By: #### JAMES Sanchez MP, 1987-08, 77064-5 #### [facility] ([id number]) [address] [place] [address] 72146 #### 08479-7 #### [facility] ([id number]) [address] [place] [address], [address] [place] [address] CREATININEon 07-31-2023 Creatinine [Mass/Vol] 2.76 mg/dL High 0.70-1.20 [facility] Comment on above: Result Comment: METH OD TRACEABLE TO IDMS STANDARD Performed By: #### B JAMES RONDON, 1987-08, 17541-0 #### [facility] ([id number]) [address] [place] [address] 04432 #### 22490-2 #### [facility] ([id number]) [address], [address] [place] [address] GFR/1.73 sq M.predicted among non-blacks MDRD (S/P/Bld) [Vol rate/Area] 25 mL/min/{1.73_m2} Low >59 [facility] Comment on above: Result Comment: Reported eGFR is based on the CKD-EPI 2020 equation that does not use a race coefficient. Performed By: #### B JAMES RONDON, 1987-08, 95021-8 #### [facility] ([id number]) [address] [place] [address] 33378 #### 76982-1 #### [facility] ([id number]) [address] [place] [address] ELECTROLYTESon 07-31-2023 Anion gap [Moles/Vol] 7 mmol/L Normal 5-15 [facility] Comment on above: Performed By: #### B JAMES RONDON, 1987-08, 16725-3 #### [facility] ([id number]) [address] [place] [address] 63572 #### 75621-0 #### [facility] ([id number]) [address], [address] [place] [address] Chloride [Moles/Vol] 104 mmol/L Normal 98-109 [facility] Comment on above: Performed By: #### B JAMES RONDON, 1987-08, 04046-1 #### [facility] ([id number]) [address] [place] [address] 67990 #### 90435-9 #### [facility] ([id number]) [address], [address] [place] [address] CO2 [Moles/Vol] 21 mmol/L Low 22-32 [facility] Comment on above: Performed By: #### B ALCON CBCA, 1987-08, 08204-1 #### [facility] ([id number]) [address] [place] [address] 72664 #### 32655-8 #### [facility] ([id number]) [address] [facility], [address] [place] [address] Potassium [Moles/Vol] 4.3 mmol/L Normal 3.5-5.0 [facility] Comment on above: Performed By: #### Laura RONDON CBCA, 1987-08, 82713-3 #### [facility] ([id number]) [address] [place] [address] 92900 #### 36231-0 #### [facility] ([id number]) [address] [facility], [address] [place] [address] Sodium [Moles/Vol] 132 mmol/L Low 134-146 [facility] Comment on above: Performed By: #### Laura RONDON CBCA, 1987-08, 33007-3 #### [facility] ([id number]) [address] [place] [address] 69413 #### 31206-8 #### [facility] ([id number]) [address] [facility], [address] [place] [address] Natriuretic peptide.B prohor adrianne N-Terminal [Mass/Vol]on 07-31-2023 NT Pro BNP See Below Normal [facility] Comment on above: Result Comment: NOTE TEST RESULT FLAG UNIT REF.RANGE ---- PRO B Natr Peptide 1296 H pg/mL <125 Test Performed By: [facility] [address] [place] [address] Grocery Associate: Tyler Valle III, M.D. CLIA #[id number] Performed By: #### B JAMES RONDON, 1987-08, 94086-0 #### [facility] ([id number]) [address] [place] [address] 45519 #### 06190-7 #### [facility] ([id number]) [address] [facility], [address] [place] [address] BLOOD UREA NITROGENon 2023 Urea nitrogen [Mass/Vol] 34 mg/dL High 5-27 [facility] Comment on above: Performed By: #### Laura RONDON CBCJarrett, 1987-08, 39735-6 #### [facility] ([id number]) [address] [place] [address] 47251 #### 64418-4 #### [facility] ([id number]) [address] [facility], [address] [place] [address] CREATININEon 07-02-2023 Creatinine [Mass/Vol] 3.13 mg/dL High 0.70-1.20 [facility] Comment on above: Result Comment: METH OD TRACEABLE TO IDMS STANDARD Performed By: #### Laura RONDON CBCA, 1987-08, 64318-5 #### [facility] ([id number]) [address] [place] [address] 32138 #### 70095-0 #### [facility] ([id number]) [address] [facility], [address] [place] [address] GFR/1.73 sq M.predicted among non-blacks MDRD (S/P/Bld) [Vol rate/Area] 22 mL/min/{1.73_m2} Low >59 [facility] Comment on above: Result Comment: Reported eGFR is based on the CKD-EPI 2020 equation that does not use a race coefficient. Performed By: #### B JAMES RONDON, 1987-08, 55699-0 #### [facility] ([id number]) [address] [place] [address] 75659 #### 86135-7 #### [facility] ([id number]) [address] [place] [address] ELECTROLYTESon 07-02-2023 Anion gap [Moles/Vol] 8 mmol/L Normal 5-15 [facility] Comment on above: Performed By: #### B JAMES RONDON, 1987-08, 90906-4 #### [facility] ([id number]) [address] [place] [address] 53725 #### 55038-7 #### [facility] ([id number]) [address] [place] [address] Chloride [Moles/Vol] 106 mmol/L Normal 98-109 [facility] Comment on above: Performed By: #### B JAMES RONDON, 1987-08, 55259-9 #### [facility] ([id number]) [address] [place] [address] 53838 #### 32969-8 #### [facility] ([id number]) [address] [place] [address] CO2 [Moles/Vol] 20 mmol/L Low 22-32 [facility] Comment on above: Performed By: #### JAMES Sanchez MP, 1987-08, 58028-4 #### [facility] ([id number]) [address] [place] [address] 45668 #### 33489-9 #### [facility] ([id number]) [address] [facility], [address] [place] [address] Potassium [Moles/Vol] 4.7 mmol/L Normal 3.5-5.0 [facility] Comment on above: Performed By: #### JAMES Sanchez MP, 1987-08, 52947-5 #### [facility] ([id number]) [address] [place] [address] 22595 #### 65784-1 #### [facility] ([id number]) [facility] [facility], [address] [place] [address] Sodium [Moles/Vol] 134 mmol/L Normal 134-146 [facility] Comment on above: Performed By: #### JAMES Sanchez MP, 1987-08, 22556-0 #### [facility] ([id number]) [address] [place] [address] #### 99163-7 #### [facility] ([id number]) [address] [place] [address], [address] [place] [address] Natriuretic peptide.B prohor adrianne N-Terminal [Mass/Vol]on 07-02-2023 NT Pro BNP See Below Normal [facility] Comment on above: Result Comment: NOTE TEST RESULT FLAG UNIT REF.RANGE ---- PRO B Natr Peptide 413 H pg/mL <125 Test Performed By: [facility] [address] [place] [address] Grocery Associate: Charlotte Hart III #[id number] Performed By: #### JAMES Sanchez MP, 1987-08, 62317-9 #### [facility] ([id number]) [address] [place] [address] #### 39782-5 #### [facility] ([id number]) [address] [place] [address] BLOOD UREA NITROGENon 2023 Urea nitrogen [Mass/Vol] 33 mg/dL High 5-27 [facility] Comment on above: Performed By: #### B JAMES RONDON, 1987-08, 15418-9 #### [facility] ([id number]) [address] [place] [address] 85149 #### 32710-9 #### [facility] ([id number]) [address] [address] CREATININEon 06-04-2023 Creatinine [Mass/Vol] 2.37 mg/dL High 0.70-1.20 [facility] Comment on above: Result Comment: METH OD TRACEABLE TO IDMS STANDARD Performed By: #### B JAMES RONDON, 1987-08, 41235-4 #### [facility] ([id number]) [address] [place] [address] 52289 #### 32553-8 #### [facility] ([id number]) [address] [address] GFR/1.73 sq M.predicted among non-blacks MDRD (S/P/Bld) [Vol rate/Area] 30 mL/min/{1.73_m2} Low >59 [facility] Comment on above: Result Comment: Reported eGFR is based on the CKD-EPI 2020 equation that does not use a race coefficient. Performed By: #### JAMES Sanchez MP, 1987-08, 77704-0 #### [facility] ([id number]) [address] [place] [address] 15322 #### 51329-5 #### [facility] ([id number]) [address] [facility] [place] [address] ELECTROLYTESon 06-04-2023 Anion gap [Moles/Vol] 7 mmol/L Normal 5-15 [facility] Comment on above: Performed By: #### JAMES Sanchez MP, 1987-08, 83580-8 #### [facility] ([id number]) [address] [place] [address] 78536 #### 12652-1 #### [facility] ([id number]) [address] [place] [address] Chloride [Moles/Vol] 106 mmol/L Normal 98-109 [facility] Comment on above: Performed By: #### JAMES Sanchez MP, 1987-08, #### [facility] ([id number]) [address] [place] [address] 03277 #### 01530-1 #### [facility] ([id number]) [address], [address] [place] [address] CO2 [Moles/Vol] 20 mmol/L Low 22-32 [facility] Comment on above: Performed By: #### JAMES Sanchez MP, 1987-08, #### [facility] ([id number]) [address] [place] [address] 04601 #### 55770-6 #### [facility] ([id number]) [address] [place] [address] Potassium [Moles/Vol] 4.6 mmol/L Normal 3.5-5.0 [facility] Comment on above: Performed By: #### JAMES Sanchez MP, 1987-08, 75525-1 #### [facility] ([id number]) [address] [place] [address] 51647 #### 75064-4 #### [facility] ([id number]) [address] [address] Sodium [Moles/Vol] 133 mmol/L Low 134-146 [facility] Comment on above: Performed By: #### JAMES Sanchez MP, 1987-08, 70326-6 #### [facility] ([id number]) [address] [place] [address] 98933 #### 83972-4 #### [facility] ([id number]) [address] [address] Natriuretic peptide.B prohor adrianne N-Terminal [Mass/Vol]on 06-04-2023 NT Pro BNP See Below Normal [facility] Comment on above: Result Comment: NOTE TEST RESULT FLAG UNIT REF.RANGE ---- PRO B Natr Peptide 526 H pg/mL <125 Test Performed By: [facility] [address] [place] [address] Grocery Associate: Charlotte Hart IIIIA #[id number] Performed By: #### JAMES Sanchez MP, 1987-08, 93028-5 #### [facility] ([id number]) [address] [place] [address] 98998 #### 21579-0 #### [facility] ([id number]) [address] [address] Cult,Urineon 06-03-2023 Cult,Urine Specimen Description .VOIDED URINE [...] Tobramycin 4 SUSCEPTIBLE Trimethoprim/Sulfa >=320 RESISTANT Resistant [facility] Comment on above: Performed By: #### U RC #### [id number] [place], [place] [id number] Primer Boxer: Griffin Carrion MD [facility] [address] [place], [place] [id number] Primer Boxer: Jameson Aaron MD UA w/Reflex Cultureon 2023 Bilirubin, SemiQt,Ur Negative Normal NEG [facility] Comment on above: Performed By: #### U AX, UMICAO #### [address] [place], [place] [id number] Primer Boxer: Jameson Aaron MD Blood, Urine TRACE Abnormal NEG [facility] Comment on above: Performed By: #### U AX, UMICAO #### [address] [place] [address] Primer Boxer: Jameson Aaron MD Clarity (U) SLIGHTLY CLOUDY Abnormal CLEAR [facility] Comment on above: Performed By: #### U AX, UMICAO #### [address] [place], [place] [id number] Primer Boxer: Jameson Aaron MD Color (U) Yellow Normal YEL [facility] Comment on above: Performed By: #### U AX, UMICAO #### [address] [place] [address] Primer Boxer: Jameson Aaron MD Glucose Ql (U) 3+ mg/dL Abnormal NEG [facility] Comment on above: Performed By: #### U AX, UMICAO #### [address] [place], [place] [id number] Primer Boxer: Jameson Aaron MD Ketones Ql (U) Negative Normal NEG [facility] Comment on above: Performed By: #### U AX, UMICAO #### [facility] [address] [place], [place] [id number] Primer Boxer: Jameson Aaron MD Leukocyte esterase Test strip Ql (U) TRACE Abnormal NEG [facility] Comment on above: Performed By: #### U AX, UMICAO #### [facility] [address] [place], [place] [id number] Primer Boxer: Jameson Aaron MD Nitrite,Ur Negative Normal NEG [facility] Comment on above: Performed By: #### U AX, UMICAO #### [address] [place], [place] [id number] Primer Boxer: Jameson Aaron MD PH,Ur 5.5 Normal 5.0-9.0 [facility] Comment on above: Performed By: #### U AX, UMICAO #### [facility] [address] [place] [address] [address], [place] [id number] Primer Boxer: Jameson Aaron MD Protein Ql (U) 2+ mg/dL Abnormal NEG [facility] Comment on above: Performed By: #### U AX, UMICAO #### [facility] [address] [place] [address] [place] [place], [place] [id number] Primer Boxer: Jameson Aaron MD Spec. [place],Ur 1.025 High 1.010-1.020 [facility] Comment on above: Performed By: #### U AX, UMICAO #### [facility] [address] [place], [place] 4887183 Primer Boxer: Jameson Aaron MD Urobilinogen,Ur Normal Normal 0.0-1.0 [facility] Comment on above: Performed By: #### U AX, UMICAO #### [facility] [address] [place], [place] 0017683 Primer Boxer: Jameson Aaron MD Urinalysis,Microon 4 Bacteria 2+ Abnormal NONE [facility] Comment on above: Performed By: #### U AX, UMICAO #### [facility] [address] [place], [place] 4982883 Primer Boxer: Jameson Aaron MD Epithelial cells LM Ql (Urine sed) 0 TO 2 Normal 0-5 [facility] Comment on above: Performed By: #### U AX, UMICAO #### [facility] [address] [place], [place] 8634383 Primer Boxer: Jameson Aaron MD Epithelial, Renal 0 TO 2 Normal 0 [facility] Comment on above: Performed By: #### U AX, UMICAO #### [facility] [address] [place], [place] 6362283 Primer Boxer: Jameson Aaron MD Urine RBC's 0 TO 2 Normal 0-2 [facility] Comment on above: Performed By: #### U AX, UMICAO #### [facility] [address] [place] [address] Dr. [place], [place] 7243683 Primer Boxer: Jameson Aaron MD Urine WBC's 10 TO 20 Normal 0-5 [facility] Comment on above: Performed By: #### U AX, UMICAO #### [facility] [address] [place], [place] 1708283 Primer Boxer: Jameson Aaron MD Yeast PRESENCE NOTED Abnormal [facility] Comment on above: Performed By: #### U AX, UMICAO #### [facility] [address] [place] [address] Primer Boxer: Jameson Aaron MD BLOOD UREA NITROGENon 2023 Urea nitrogen [Mass/Vol] 44 mg/dL High 5-27 [facility] Comment on above: Performed By: #### E LEC, 3094-0, MECHANIC CHIEF, 91891-2 #### [facility] ([id number]) [address] [place] [address] 74984 #### 76460-9, HA1C #### [facility] ([id number]) [address], [address] [place] [address] CREATININEon 05-06-2023 Creatinine [Mass/Vol] 2.71 mg/dL High 0.70-1.20 [facility] Comment on above: Result Comment: METH OD TRACEABLE TO IDMS STANDARD Performed By: #### E LEC, 3094-0, MECHANIC CHIEF, 29865-8 #### [facility] ([id number]) [address] [place] [address] 22704 #### 84120-4, HA1C #### [facility] ([id number]) [address], [address] [place] [address] GFR/1.73 sq M.predicted among non-blacks MDRD (S/P/Bld) [Vol rate/Area] 26 mL/min/{1.73_m2} Low >59 [facility] Comment on above: Result Comment: Reported eGFR is based on the CKD-EPI 2020 equation that does not use a race coefficient. Performed By: #### E LEC, 3094-0, MECHANIC CHIEF, 49217-2 #### [facility] ([id number]) [address] [place] [address] 71446 #### 05927-6, HA1C #### [facility] ([id number]) [address], [address] [place] [address] ELECTROLYTESon 05-06-2023 Anion gap [Moles/Vol] 11 mmol/L Normal 5-15 [facility] Comment on above: Performed By: #### E LEC, 3094-0, MECHANIC CHIEF, 59433-3 #### [facility] ([id number]) [address] [place] [address] 51965 #### 90080-5, HA1C #### [facility] ([id number]) [address] [facility], [address] [place] [address] Chloride [Moles/Vol] 101 mmol/L Normal 98-109 [facility] Comment on above: Performed By: #### E LEC, 3094-0, MECHANIC CHIEF, 92150-8 #### [facility] ([id number]) [address] [place] [address] 60950 #### 43045-0, HA1C #### [facility] ([id number]) [address] [facility], [address] [place] [address] CO2 [Moles/Vol] 18 mmol/L Low 22-32 [facility] Comment on above: Performed By: #### E LEC, 309-0, MECHANIC CHIEF, 41787-1 #### [facility] ([id number]) [address] [place] [address] 39447 #### 47092-5, HA1C #### [facility] ([id number]) [address] [facility], [address] [place] [address] Potassium [Moles/Vol] 4.4 mmol/L Normal 3.5-5.0 [facility] Comment on above: Performed By: #### E LEC, 309-0, MECHANIC CHIEF, 37574-8 #### [facility] ([id number]) [address] [place] [address] 26024 #### 82128-2, HA1C #### [facility] ([id number]) [address] [facility], [address] [place] [address] Sodium [Moles/Vol] 130 mmol/L Low 134-146 [facility] Comment on above: Performed By: #### E LEC, 3094-0, MECHANIC CHIEF, 17321-5 #### [facility] ([id number]) [address] [place] [address] 81962 #### 29250-4, HA1C #### [facility] ([id number]) [address] [facility], [address] [address] HGB A1C (GLYCO-HGB)on 2023 Glucose [Mass/Vol] 260 mg/dL Normal [facility] Comment on above: Performed By: #### Laura RONDON, CBCA, 1987-08, 22868-6 #### [facility] ([id number]) [address] [place] [address] 02330 #### 29215-2 #### [facility] ([id number]) [address] [place] [address], [address] [address] HbA1c (Bld) [Mass fraction] 10.7 % High 4.4-5.6 [facility] Comment on above: Result Comment: NOTE ADA Guidelines Result HgbA1c Normal : less than 5.7 % Prediabetes : 5.7 % to 6.4 % Diabetes : > 6.4 % Use with caution in patients with abnormal hemoglobin variants as the half-life of red blood cells and in vivo glycation rates are affected. Performed By: #### Laura RONDON CBCA, 1987-08, 85362-5 #### [facility] ([id number]) [address] [place] [address] 52370 #### 82273-9 #### [facility] ([id number]) [address] [facility], [address] [address] Lipid 1996 panelon 4 Cholesterol [Mass/Vol] 205 mg/dL High 150-200 [facility] Comment on above: Performed By: #### Tiki REYES, 3094-0, MECHANIC CHIEF, 62393-2 #### [facility] ([id number]) [address] [place] [address] 42634 #### 42194-1, HA1C #### [facility] ([id number]) [address] [facility], [address] [place] [address] Cholesterol in HDL [Mass/Vol] 35 mg/dL Low >39 [facility] Comment on above: Result Comment: HDL <40 mg/dL - High Risk HDL > or = 40mg/dL- Desirable HDL >60 mg/dL - Negative Risk Performed By: #### Tiki LEC, 3094-0, MECHANIC CHIEF, 33473-3 #### [facility] ([id number]) [address] [place] [address] 54541 #### 31749-1, HA1C #### [facility] ([id number]) [address] [facility], [address] [place] [address] Cholesterol in LDL [Mass/Vol] 120 mg/dL Normal <130 [facility] Comment on above: Result Comment: LDL <100 mg/dL - Desirable LDL >160 mg/dL - High Risk Performed By: #### Tiki LEC, 3094-0, MECHANIC CHIEF, 23611-6 #### [facility] ([id number]) [address] [place] [address] 58950 #### 10068-0, HA #### [facility] ([id number]) [address] [facility], [address] [place] [address] Cholesterol in VLDL [Mass/Vol] 50 mg/dL High 0-30 [facility] Comment on above: Performed By: #### Tiki LEC, 3094-0, MECHANIC CHIEF, 42920-4 #### [facility] ([id number]) [address] [place] [address] 28727 #### 53848-8, HA1C #### [facility] ([id number]) [address] [facility], [address] [place] [address] CHOLESTEROL:HDL 5.9 High 1.0-5.0 [facility] Comment on above: Performed By: #### Tiki LEC, 3094-0, MECHANIC CHIEF, 11127-8 #### [facility] ([id number]) [address] [place] [address] 23610 #### 61030-4, HA1C #### [facility] ([id number]) [address] [facility], [address] [place] [address] Triglyceride [Mass/Vol] 248 mg/dL High 27-150 [facility] Comment on above: Performed By: #### Tiki LEC, 3094-0, MECHANIC CHIEF, 10265-1 #### [facility] ([id number]) [address] [place] [address] 33253 #### 70733-4, HA1C #### [facility] ([id number]) [address] [place] [address], [address] [place] [address] MICROALBUMIN - ALBUMIN:CREAT ININE URINE RATIOon 05-06-2023 ALB/CREAT RATIO 2747.0 mg/g creat High 0.0-30.0 [facility] Comment on above: Performed By: #### B MP, CBCA, 1987-, 65464-4 #### [facility] ([id number]) [address] [place] [address] 15848 #### 02618-2 #### [facility] ([id number]) [address] [facility], [address] [place] [address] Albumin DL <= 20 mg/L (U) [Mass/Vol] 195.2 mg/dL High 0.0-1.9 [facility] Comment on above: Performed By: #### JAMES Sanchez MP, 1987-08, 87385-6 #### [facility] ([id number]) [address] [place] [address] 86795 #### 72669-2 #### [facility] ([id number]) [address] [facility], [address] [place] [address] URINE CREAT 71.06 mg/dL Normal [facility] Comment on above: Performed By: #### JAMES Sanchez MP, 1987-08, 91244-6 #### [facility] ([id number]) [address] [place] [address] 08283 #### 59004-7 #### [facility] ([id number]) [address] [facility], [address] [place] [address] Natriuretic peptide.B prohor adrianne N-Terminal [Mass/Vol]on 05-06-2023 NT Pro BNP See Below Normal [facility] Comment on above: Result Comment: NOTE TEST RESULT FLAG UNIT REF.RANGE ---- PRO B Natr Peptide 314 H pg/mL <125 Test Performed By: [facility] [employer] [address] [place] [address] Grocery Associate: Charlotte Hart III #[id number] Performed By: #### JAMES Sanchez MP, 1987-08, 25160-4 #### [facility] ([id number]) [address] [place] [address] 14300 #### 27384-7 #### [facility] ([id number]) [address] [facility], [address] [place] [address] URINALYSISon 05-06-2023 Bilirubin Ql (U) Negative Normal NEG [facility] Comment on above: Performed By: #### U A #### [facility] ([id number]) [address] [place] [address] BLOOD/HGB Trace Abnormal NEG [facility] Comment on above: Performed By: #### U A #### [facility] ([id number]) [address] [place] [address] Color (U) YELLOW Normal YELLOW [facility] Comment on above: Performed By: #### U A #### [facility] ([id number]) [address] [place] [address] Glucose Ql (U) >1000 Abnormal NEG [facility] Comment on above: Performed By: #### U A #### [facility] ([id number]) [address] [place] [address] 31639 Ketones Ql (U) Negative Normal NEG [facility] Comment on above: Performed By: #### U A #### [facility] ([id number]) [address] [place] [address]65[address] Leukocyte esterase Test strip Ql (U) Negative Normal NEG [facility] Comment on above: Result Comment: HIGH CONCENTRATIONS OF GLUCOSE MAY DECREASE THE REACTIVITY OF THE DIPSTICK LEUKOCYTE TEST PAD. Performed By: #### U A #### [facility] ([id number]) [address] [place] [address] MUCOUS PRESENT Abnormal NONE [facility] Comment on above: Performed By: #### U A #### [facility] ([id number]) [address] [place] [address] Nitrite Ql (U) Positive Abnormal NEG [facility] Comment on above: Performed By: #### U A #### [facility] ([id number]) [address] [place] [address] 90136 pH (U) 6.0 [pH] Normal 5.0-8.5 [facility] Comment on above: Performed By: #### U A #### [facility] ([id number]) [address] [place] [address] Protein Ql (U) >300 Abnormal NEG [facility] Comment on above: Performed By: #### U A #### [facility] ([id number]) [address] [place] [address]113 R.B.CELLS 5 /hpf Normal 0-5 [facility] Comment on above: Performed By: #### U A #### [facility] ([id number]) [address] [place] [address]307 Specific gravity (U) [Rel density] 1.015 Normal 1.003-1.035 [facility] Comment on above: Performed By: #### U A #### [facility] ([id number]) [address] [place] [address] SQUAMOUS EPITHELIUM 4 /hpf Normal 0-5 [facility] Comment on above: Performed By: #### U A #### [facility] ([id number]) [address] [place] [address]3350 TURBIDITY HAZY Abnormal CLEAR [facility] Comment on above: Performed By: #### U A #### [facility] ([id number]) [address] [place] [address]34 Urobilinogen Qn (U) 0.2 {Chaya'U}/dL Normal <1.1 [facility] Comment on above: Performed By: #### U A #### [facility] ([id number]) [address] [place] [address] 89098 W.B.CELLS >100 High 0-5 [facility] Comment on above: Performed By: #### U A #### [facility] ([id number]) [address] [place] [address]7587 URINE CULTUREon 05-06-2023 Bacteria identified Cx Nom (U) SPECIMEN NOTES URINE RECEIVED WITHOUT PRESERVATIVE CULTURE RESULTS MULTIPLE SPECIES PRESENT. PROBABLE COLLECTION CONTAMINATION. SUGGEST REPEAT SPECIMEN. URINE RECEIVED WITHOUT PRESERVATIVE-DELAYS IN TRANSPORT MAY AFFECT RESULTS.INTERPRET WITH CAUTION AND CLINICAL CORRELATION IS RECOMMENDED. Normal [facility] Comment on above: Performed By: #### B ALCON CBCA, 1987-08, 82613-5 #### [facility] ([id number]) [address] [place] [address] 49650 #### 99350-8 #### [facility] ([id number]) [address], [address] [place] [address] BASIC METABOLIC PANLon 04-19 Anion gap [Moles/Vol] 6 mmol/L Normal 5-15 [facility] Comment on above: Performed By: #### B ALCON CBCA, 1987-08, 43316-8 #### [facility] ([id number]) [address] [place] [address] 29182 #### 85270-5 #### [facility] ([id number]) [address] [place] [address] Calcium [Mass/Vol] 8.6 mg/dL Normal 8.5-10.5 [facility] Comment on above: Performed By: #### B ALCON CBCA, 1987-08, 45923-8 #### [facility] ([id number]) [address] [place] [address] 10511 #### 72422-2 #### [facility] ([id number]) [address] [place] [address] Chloride [Moles/Vol] 101 mmol/L Normal 98-109 [facility] Comment on above: Performed By: #### B JAMES RODNON, 1987-08, 61278-3 #### [facility] ([id number]) [address] [place] [address] 96325 #### 38431-5 #### [facility] ([id number]) [address] [facility], [address] [place] [address] CO2 [Moles/Vol] 19 mmol/L Low 22-32 [facility] Comment on above: Performed By: #### B JAMES RONDON, 1987-08, 31379-0 #### [facility] ([id number]) [address] [place] [address] 19735 #### 03037-3 #### [facility] ([id number]) [address] [facility], [address] [place] [address] Creatinine [Mass/Vol] 2.57 mg/dL High 0.70-1.20 [facility] Comment on above: Result Comment: METH OD TRACEABLE TO IDMS STANDARD Performed By: #### JAMES Sanchez MP, 1987-08, 79298-0 #### [facility] ([id number]) [address] [place] [address] 84770 #### 75606-6 #### [facility] ([id number]) [address], [address] [place] [address] GFR/1.73 sq M.predicted among non-blacks MDRD (S/P/Bld) [Vol rate/Area] 27 mL/min/{1.73_m2} Low >59 [facility] Comment on above: Result Comment: Reported eGFR is based on the CKD-EPI 2020 equation that does not use a race coefficient. Performed By: #### B JAMES RONDON, 1987-08, 77227-1 #### [facility] ([id number]) [address] [place] [address] 25083 #### 44749-5 #### [facility] ([id number]) [facility] [facility], [address] [place] [address] Glucose [Mass/Vol] 377 mg/dL High 65-99 [facility] Comment on above: Performed By: #### SEVEN Sanchez MPA, 1987-08, 96040-3 #### [facility] ([id number]) [address] [place] [address] 70342 #### 02978-5 #### [facility] ([id number]) [address] [place] [address], [address] [place] [address] Potassium [Moles/Vol] 4.2 mmol/L Normal 3.5-5.0 [facility] Comment on above: Performed By: #### JAMES Sanchez MP, 1987-08, 32510-9 #### [facility] ([id number]) [address] [place] [address] 55281 #### 91261-3 #### [facility] ([id number]) [address] [place] [address], [address] [place] [address] Sodium [Moles/Vol] 126 mmol/L Low 134-146 [facility] Comment on above: Performed By: #### JAMES Sanchez MP, 1987-08, 63268-7 #### [facility] ([id number]) [address] [place] [address] 49831 #### 19416-9 #### [facility] ([id number]) [address] [place] [address], [address] [place] [address] Urea nitrogen [Mass/Vol] 30 mg/dL High 5-27 [facility] Comment on above: Performed By: #### SEVEN Sanchez MPA, 1987-08, 86288-0 #### [facility] ([id number]) [address] [place] [address] 74190 #### 90169-7 #### [facility] ([id number]) [address], [address] [place] [address] CBC AND AUTO DIFFon 04-19-20 ABSOLUTE BASOPHIL 0.1 X10E9/L Normal 0.0-0.2 [facility] Comment on above: Performed By: #### B MP, CBCA, 1987-08, 64622-4 #### [facility] ([id number]) [address] [place] [address] 69997 #### 43288-8 #### [facility] ([id number]) [address] [facility], [address] [place] [address] ABSOLUTE NEUTROPHIL 8.8 X10E9/L High 1.5-6.6 [facility] Comment on above: Performed By: #### B ALCON, CBCA, 1987-08, 84620-0 #### [facility] ([id number]) [address] [place] [address] 16429 #### 72898-6 #### [facility] ([id number]) [address] [facility], [address] [place] [address]2877 Basophils/100 WBC (Bld) 0.5 % Normal [facility] Comment on above: Performed By: #### B MP, CBCA, 1987-08, 83145-9 #### [facility] ([id number]) [address] [place] [address] 32214 #### 69015-1 #### [facility] ([id number]) [address] [facility], [address] [place] [address] Eosinophils (Bld) [#/Vol] 0.3 10*3/uL Normal 0.0-0.4 [facility] Comment on above: Performed By: #### B MP, CBCA, 1987-08, 33378-4 #### [facility] ([id number]) [address] [place] [address] 44603 #### 43786-6 #### [facility] ([id number]) [address] [place] [address] Eosinophils/100 WBC (Bld) 2.6 % Normal [facility] Comment on above: Performed By: #### B ALCON, CBCA, 1987-08, 83351-6 #### [facility] ([id number]) [address] [place] [address] 08881 #### 33307-3 #### [facility] ([id number]) [address] [facility], [address] [place] [address] Erythrocyte distribution width (RBC) [Ratio] 15.5 % High 11.5-15.0 [facility] Comment on above: Performed By: #### Laura RONDON, CBCA, 1987-08, 76987-4 #### [facility] ([id number]) [address] [place] [address] 96017 #### 04314-4 #### [facility] ([id number]) [address] [facility], [address] [place] [address] Hematocrit (Bld) [Volume fraction] 36.8 % Low 39-49 [facility] Comment on above: Performed By: #### Laura RONDON, CBCA, 1987-08, 82729-7 #### [facility] ([id number]) [address] [place] [address] 56246 #### 96874-8 #### [facility] ([id number]) [address] [place] [address] Hemoglobin (Bld) [Mass/Vol] 12.0 g/dL Low 13.0-17.0 [facility] Comment on above: Performed By: #### Laura RONDON, CBCA, 1987-08, 07478-6 #### [facility] ([id number]) [address] [place] [address] 64377 #### 19413-9 #### [facility] ([id number]) [address] [place] [address] Lymphocytes (Bld) [#/Vol] 1.9 10*3/uL Normal 1.0-3.5 [facility] Comment on above: Performed By: #### Laura MP, CBCA, 1987-08, #### [facility] ([id number]) [address] [place] [address] 77906 #### 49451-5 #### [facility] ([id number]) [address] [place] [address] Lymphocytes/100 WBC (Bld) 15.1 % Normal [facility] Comment on above: Performed By: #### Laura MP, CBCA, 1987-08, #### [facility] ([id number]) [address] [place] [address] #### [id number] #### [facility] ([id number]) [address], [address] [place] [address] MCH (RBC) [Entitic mass] 28.2 pg Normal 27-34 [facility] Comment on above: Performed By: #### Laura MP, CBCA, 1987-08, #### [facility] ([id number]) [address] [place] [address]114 #### [id number] #### [facility] ([id number]) [address] [place] [address] MCHC (RBC) [Mass/Vol] 32.7 g/dL Normal 32-36 [facility] Comment on above: Performed By: #### Laura MP, CBCA, 1987-08, #### [facility] ([id number]) [address] [place] [address]009 #### [id number] #### [facility] ([id number]) [address] [place] [address] MCV (RBC) [Entitic vol] 86 fL Normal 80-100 [facility] Comment on above: Performed By: #### B ALCON, CBCA, 1987-08, #### [facility] ([id number]) [address] [place] [address]87[address] #### [id number] #### [facility] ([id number]) [address] [place] [address] Monocytes (Bld) [#/Vol] 1.4 10*3/uL High 0-0.9 [facility] Comment on above: Performed By: #### B ALCON, CBCA, 1987-08, #### [facility] ([id number]) [address] [place] [address] #### [id number] #### [facility] ([id number]) [address], [address] [place] [address] Monocytes/100 WBC (Bld) 11.2 % Normal [facility] Comment on above: Performed By: #### Laura MP, CBCA, 1987-08, #### [facility] ([id number]) [address] [place] [address] 95683 #### 99160-2 #### [facility] ([id number]) [address] [place] [address] Neutrophils/100 WBC (Bld) 70.6 % Normal [facility] Comment on above: Performed By: #### B MP, CBCA, 1987-08, #### [facility] ([id number]) [address] [place] [address] #### [id number] #### [facility] ([id number]) [address], [address] [place], [place] [address] Platelet mean volume (Bld) [Entitic vol] 7.6 fL Normal 7-12 [facility] Comment on above: Performed By: #### B ALCON, CBCA, 1987-08, 91344-7 #### [facility] ([id number]) [address] [place] [address] #### [id number] #### [facility] ([id number]) [address] [address] [place] [address] Platelets (Bld) [#/Vol] 325 10*3/uL Normal 150-450 [facility] Comment on above: Performed By: #### B ALCON, CBCA, 1987-08, 69013-4 #### [facility] ([id number]) [address] [place] [address] #### [id number] #### [facility] ([id number]) [address] [place] [address] RBC COUNT 4.27 X10E12/L Normal 4.10-5.70 [facility] Comment on above: Performed By: #### B ALCON, CBCA, 1987-08, 49755-4 #### [facility] ([id number]) [address] [place] [address] #### 63103-0 #### [facility] ([id number]) [address] [place] [address] WBC (Bld) [#/Vol] 12.5 10*3/uL High 4.0-11.0 [facility] Comment on above: Performed By: #### B JAMES RONDON, 1987-08, 52129-3 #### [facility] ([id number]) [address] [place] [address] #### 45865-2 #### [facility] ([id number]) [address] [place] [address] CRP [Mass/Vol]on 04-19-2023 C REACTIVE PROTEIN 7.8 mg/dL High 0.000-0.744 [facility] Comment on above: Performed By: #### B JAMES RONDON, 1987-08, 85926-9 #### [facility] ([id number]) [address] [place] [address] #### 83333-2 #### [facility] ([id number]) [address] [place] [address] ESR Photometric method (Bld) [Velocity]on 04-19-2023 ESR, ERYTHROCYTE SEDIMENTATION RATE 115 mm/h High 0-20 [facility] Comment on above: Performed By: #### JAMES Sanchez MP, 1987-08, 69754-2 #### [facility] ([id number]) [address] [place] [address] #### 16124-9 #### [facility] ([id number]) [address] [place] [address] Natriuretic peptide.B prohor adrianne N-Terminal [Mass/Vol]on 04-19-2023 NT Pro BNP See Below Normal [facility] Comment on above: Result Comment: NOTE TEST RESULT FLAG UNIT REF.RANGE ---- PRO B Natr Peptide 587 H pg/mL <125 Test Performed By: [facility] [address] [address] Grocery Associate: Tyler Valle III, M.D. CLIA #[id number] Performed By: #### B MP, CBCA, 1988-, 37671-8 #### [facility] ([id number]) [address] [facility], [place] [address] #### 36269-2 #### [facility] ([id number]) [address] [place] [address], [address] [place] [address] Basic Metabolic Profon 02-27 Anion gap [Moles/Vol] 11 mmol/L Normal 01-13 [facility] Comment on above: Performed By: #### S ED, CRP, BMP, CDP #### [facility] [address] [place] [address] Primer Boxer: Jameson Aaron MD BUN/CRE Ratio 16 Normal 01-16 [facility] Comment on above: Performed By: #### S ED, CRP, BMP, CDP #### [facility] [address] [place] [address] Primer Boxer: Jameson Aaron MD Calcium [Mass/Vol] 9.4 mg/dL Normal 8.6-10.4 [facility] Comment on above: Performed By: #### S ED, CRP, BMP, CDP #### [facility] [address] [place] [address] Primer Boxer: Jameson Aaron MD Chloride [Moles/Vol] 98 mmol/L Normal 98-107 [facility] Comment on above: Performed By: #### S ED, CRP, BMP, CDP #### [facility] [address] [place] [address] Primer Boxer: Jameson Aaron MD CO2 [Moles/Vol] 18 mmol/L Low [facility] Comment on above: Performed By: #### S ED, CRP, BMP, CDP #### [facility] [address] [place] [address] [place] [address] Primer Boxer: Jameson Aaron MD Creatinine [Mass/Vol] 2.7 mg/dL High 0.7-1.2 [facility] Comment on above: Performed By: #### S ED, CRP, BMP, CDP #### [facility] [address] [place] [address] Primer Boxer: Jameson Aaron MD GFR/1.73 sq M.predicted among non-blacks MDRD (S/P/Bld) [Vol rate/Area] 26 mL/min/{1.73_m2} Low >60 [facility] Comment on above: Result Comment: These [...] renal tubular secretion. Performed By: #### S EDLACIE BMP, CDP #### [address] [place] [address] Primer Boxer: Jameson Aaron MD Glucose [Mass/Vol] 268 mg/dL High 70-99 [facility] Comment on above: Performed By: #### S EDLACIE, BMP, CDP #### [facility] [address] [place] [address] [place] [address] Primer Boxer: Jameson Aaron MD Potassium [Moles/Vol] 5.2 mmol/L Normal 3.7-5.3 [facility] Comment on above: Performed By: #### S ED, CRP, BMP, CDP #### [address] [place] [address] Primer Boxer: Jameson Aaron MD Sodium [Moles/Vol] 127 mmol/L Low 135-144 [facility] Comment on above: Performed By: #### S ED, CRP, BMP, CDP #### [facility] [address] [place] [address] Dr[address] [place], [place] 6[address]83 Primer Boxer: Jameson Aaron MD Urea nitrogen [Mass/Vol] 44 mg/dL High 8-23 [facility] Comment on above: Performed By: #### S ED, CRP, BMP, CDP #### [facility] [address] [place] [address] Dr. [place], [facility]83 Primer Boxer: Jameson Aaron MD C-Reactive Proteinon 023 CRP [Mass/Vol] 131.1 mg/L High 0.0-5.0 [facility] Comment on above: Performed By: #### S ED, CRP, BMP, CDP #### [address] [place], [place] [address] Primer Boxer: Jameson Aaron MD CBC with Diffon 02-27-2023 Abs. Basophil 0.06 k/uL Normal 0.00-0.20 [facility] Comment on above: Performed By: #### S ED, CRP, BMP, CDP #### [address] [place] [address] Primer Boxer: Jameson Aaron MD Abs.Imm.Granulocyte 0.11 k/uL Normal 0.00-0.30 [facility] Comment on above: Performed By: #### S ED, CRP, BMP, CDP #### [facility] [address] [place] [address] [place] [address] Primer Boxer: Jameson Aaron MD Abs.Neutrophil (Seg) 6.83 k/uL Normal 1.50-8.10 [facility] Comment on above: Performed By: #### S ED, CRP, BMP, CDP #### [address] [place], [place] 5820683 Primer Boxer: Jameson Aaron MD Basophils/100 WBC (Bld) 1 % Normal 0-2 [facility] Comment on above: Performed By: #### S ED, CRP, BMP, CDP #### [address] [place], [facility]83 Primer Boxer: Jameson Aaron MD Eosinophils (Bld) [#/Vol] 0.22 10*3/uL Normal 0.00-0.44 [facility] Comment on above: Performed By: #### S ED, CRP, BMP, CDP #### [address] [place], [facility]83 Primer Boxer: Jameson Aaron MD Eosinophils/100 WBC (Bld) 2 % Normal 1-4 [facility] Comment on above: Performed By: #### S ED, CRP, BMP, CDP #### [address] [place], [facility]83 Primer Boxer: Jameson Aaron MD Erythrocyte distribution width (RBC) [Ratio] 14.6 % High 11.8-14.4 [facility] Comment on above: Performed By: #### S ED, CRP, BMP, CDP #### [address] [place], [facility]83 Primer Boxer: Jameson Aaron MD Hematocrit (Bld) [Volume fraction] 41.9 % Normal 40.7-50.3 [facility] Comment on above: Performed By: #### S ED, CRP, BMP, CDP #### [address] [place], [facility]83 Primer Boxer: Jameson Aaron MD Hemoglobin (Bld) [Mass/Vol] 13.2 g/dL Normal 13.0-17.0 [facility] Comment on above: Performed By: #### S ED, CRP, BMP, CDP #### [address] [place] [address] Primer Boxer: Jameson Aaron MD Immature granulocytes/100 WBC (Bld) 1 % High 0 [facility] Comment on above: Performed By: #### S ED, CRP, BMP, CDP #### [address] [place], [place] 0319483 Primer Boxer: Jameson Aaron MD Lymphocytes (Bld) [#/Vol] 1.83 10*3/uL Normal 1.10-3.70 [facility] Comment on above: Performed By: #### S ED, CRP, BMP, CDP #### [address] [place], [place] [address]783 Primer Boxer: Jameson Aaron MD Lymphocytes/100 WBC (Bld) 18 % Low 24-43 [facility] Comment on above: Performed By: #### S ED, CRP, BMP, CDP #### [address] [place], [facility]83 Primer Boxer: Jameson Aaron MD MCH (RBC) [Entitic mass] 28.2 pg Normal 25.2-33.5 [facility] Comment on above: Performed By: #### S ED, CRP, BMP, CDP #### [address] [place], [place] 4490383 Primer Boxer: Jameson Aaron MD MCHC (RBC) [Mass/Vol] 31.5 g/dL Normal 28.4-34.8 [facility] Comment on above: Performed By: #### S ED, CRP, BMP, CDP #### [address] [place], [place] [address] Primer Boxer: Jameson Aaron MD MCV (RBC) [Entitic vol] 89.5 fL Normal 82.6-102.9 [facility] Comment on above: Performed By: #### S ED, CRP, BMP, CDP #### [address] [place], [place] 6928283 Primer Boxer: Jameson Aaron MD Monocytes (Bld) [#/Vol] 1.42 10*3/uL High 0.10-1.20 [facility] Comment on above: Performed By: #### S ED, CRP, BMP, CDP #### [facility] [address] [place], [place] [address]83 Primer Boxer: Jameson Aaron MD Monocytes/100 WBC (Bld) 14 % High 3-12 [facility] Comment on above: Performed By: #### S ED, CRP, BMP, CDP #### [facility] [address] [place] [address] Primer Boxer: Jameson Aaron MD Neutrophil (Seg) 64 % Normal 36-65 [facility] Comment on above: Performed By: #### S ED, CRP, BMP, CDP #### [address] [place], [place] 476[address]83 Primer Boxer: Jameson Aaron MD NRBC Automated 0.0 per 100 WBC Normal 0.0 [facility] Comment on above: Performed By: #### S ED, CRP, BMP, CDP #### [address] [place] [address] Primer Boxer: Jameson Aaron MD Platelet mean volume (Bld) [Entitic vol] 9.4 fL Normal 8.1-13.5 [facility] Comment on above: Performed By: #### S ED, CRP, BMP, CDP #### [facility] [address] [place] [address] [place] [address] Primer Boxer: Jameson Aaron MD Platelets (Bld) [#/Vol] 266 10*3/uL Normal 138-453 [facility] Comment on above: Performed By: #### S ED, CRP, BMP, CDP #### [facility] [address] [place], [place] 9965[address] Primer Boxer: Jameson Aaron MD RBC (Bld) [#/Vol] 4.68 10*6/uL Normal 4.21-5.77 [facility] Comment on above: Performed By: #### S ED, CRP, BMP, CDP #### [facility] [address] [place] [address] Primer Boxer: Jameson Aaron MD WBC (Bld) [#/Vol] 10.5 10*3/uL Normal 3.5-11.3 [facility] Comment on above: Performed By: #### S ED, CRP, BMP, CDP #### [facility] [address] [place], [place] 7068883 Primer Boxer: Jameson Aaron MD Sedimentation Rateon 023 Sedimentation Rate 114 mm/Hr High 0-20 [facility] Comment on above: Performed By: #### S ED, CRP, BMP, CDP #### [facility] [address] [place] [address] Primer Boxer: Jameson Aaron MD FUNGAL CULTUREon 09-21-2022 Fungus (Mycology) Culture Final report Abnormal [facility] Comment on above: Performed By: #### C XFUN ####[facility] [address] [address]Dr. Eddie Lerner Fungus Stain Final report Normal [facility] Comment on above: Performed By: #### C XFUN ####[facility] [address] [address]Dr. Eddie Lerner Result 1 Comment Normal [facility] Comment on above: Result Comment: ANNEMARIE/ Calcofluor preparation: no fungus observed. Performed By: #### C XFUN ####[facility] [address] [address]Dr. Eddie Lerner Result 1 Rosy albicans Abnormal [facility] Comment on above: Performed By: #### C XFUN ####[facility] [address] [address]Dr. Eddie Lerner CULTURE OTHERon 08-23-2022 CULTURE OTHER Isolate 1 Enterococcus faecalis Light growth of ORGANISM 1 Enterococcus faecalis ANTIBIOTIC M.I.C RX STATUS Beta-Lactamase Neg NEG F Benzylpenicillin 0.5 S F Ampicillin <=2 S F Gentamicin High Level (synergy) SYN-R R F Streptomycin High Level (synergy) SYN-S S F Quinupristin/Dalfopristin 4 R F Linezolid 1 S F Vancomycin 1 S F Normal [facility] Comment on above: Performed By: #### O THCX ####[facility] [address] [address]Dr. Eddie Lerner ACID FAST SMEAR AND CXon Acid Fast Smear Negative Normal [facility] Comment on above: Performed By: #### A FB ####[facility] [address] [place], [place] [address]Dr. Eddie Lerner [employer] Specimen Processing Tissue Grinding [facility] Comment on above: Performed By: #### A FB ####[facility] [address] [place], [place] [address]Dr. Eddie Lerner BNPon 08-20-2022 Natriuretic peptide B (Bld) [Mass/Vol] 648.0 pg/mL Normal <=900.0 [facility] Comment on above: Performed By: #### A 1C #### [facility] [address] [place] [address] Dr. Eddie Lerner CULTURE ANAEROBICon 08-21-19 23 CULTURE ANAEROBIC Culture Observations : NO GROWTH OF ANAEROBES AT 72 HOURS. [facility] Comment on above: Performed By: #### A NACX ####[facility] [address] [place], [place] [address]Dr. Eddie Lerner GLYCOHEMOGLOBIN A1Con 2022 ADA RECOMMENDATION SEE BELOW [facility] Comment on above: Result Comment: ADA RECOMMENDED LIMIT 4.0 - 6.0 ADA THERAPEUTIC TARGET < 7.0 ACTION SUGGESTED > 7.0 Performed By: #### R ENAL, LIPID, LIVER, TSH #### [facility] [address] [place] [address] Dr. Eddie Lerner Glucose [Mass/Vol] 235 mg/dL Normal [facility] Comment on above: Performed By: #### R ENAL, LIPID, LIVER, TSH #### [facility] [address] [address] [address] Eddie Lerner HbA1c (Bld) [Mass fraction] 9.8 % Critically high 4.5-6.2 [facility] Comment on above: Performed By: #### R ENAL, LIPID, LIVER, TSH #### [facility] [address] [address] [address] Eddie Lerner GRAM STAINon 08-20-2022 COMMENTS NO ORGANISMS OBSERVED Normal [facility] Comment on above: Performed By: #### G STAIN ####[facility] [address] [address]Dr. Eddie Lerner DIPHTHEROIDS Normal [facility] Comment on above: Performed By: #### G STAIN ####[facility] [address] [address]Dr. Eddie Lerner EPITHELIALS Normal [facility] Comment on above: Performed By: #### G STAIN ####[facility] [address] [address]Dr. Eddie Lrener FUNGAL ELEMENTS Normal [facility] Comment on above: Performed By: #### G STAIN ####[facility] [address] [address]Dr. Eddie Lerner GRAM NEG BACILLI Normal [facility] Comment on above: Performed By: #### G STAIN ####[facility] [address] [address]Dr. Eddie Lerner GRAM NEG DIPPLOCOCCI Normal [facility] Comment on above: Performed By: #### G STAIN ####[facility] [address] [address]Dr. Eddie Lerner GRAM POS BACILLI Normal [facility] Comment on above: Performed By: #### G STAIN ####[facility] [address] [address]Dr. Eddie Lerner GRAM POSITIVE COCCI Normal [facility] Comment on above: Performed By: #### G STAIN ####[facility] [address] [address]Dr. Eddie Lerner GRAM STAIN SOURCE Lt Foot Bone Normal [facility] Comment on above: Performed By: #### G STAIN ####[facility] [address] [place], [place] [address]Ki. Eddie Lerner GS_DIPTH Normal [facility] Comment on above: Performed By: #### G STAIN ####[facility] [address] [place], [place] [address]Qw. Eddie Lerner WBC RARE Normal [facility] Comment on above: Performed By: #### G STAIN ####[facility] [address] [address]Dr. Eddie Lerner LIPID PROFILEon 08-20-2022 CHOL-HDL RATIO NORM SEE BELOW Normal [facility] Comment on above: Result Comment: 3.3 - 4.4 LOW RISK 4.4 - 7.1 AVERAGE RISK 7.1 - 11.0 MODERATE RISK >11.0 HIGH RISK Performed By: #### A 1C #### [facility] [address] [address] [address] Eddie Lerner Cholesterol [Mass/Vol] 137 mg/dL Normal <=200 [facility] Comment on above: Performed By: #### A 1C #### [facility] [address] [address] [address] Eddie Lerner Cholesterol in HDL [Mass/Vol] 54 mg/dL Normal 40-60 [facility] Comment on above: Performed By: #### A 1C #### [facility] [address] [address] [address] Eddie Lerner Cholesterol in LDL [Mass/Vol] 63.2 mg/dL Normal [facility] Comment on above: Performed By: #### A 1C #### [facility] [address] [address] [address] Eddie Lerner Cholesterol.total/C holesterol in HDL [Mass ratio] 2.5 {ratio} Normal [facility] Comment on above: Performed By: #### A 1C #### [facility] [address] [address] [address] Eddie Lerner HDL NORMAL > or = 60 mg/dl - LO W CARDIOVASCULAR RISK <40 mg/dl - HIGH CARDIOVASCULAR RISK Normal [facility] Comment on above: Performed By: #### A 1C #### [facility] [address] [address] [address] Eddie Lerner LDL CALC NORMAL SEE BELOW Normal [facility] Comment on above: Result Comment: <100 mg/dl OPTIMAL 100 - 129 mg/dl NEAR OR ABOVE OPTIMAL 130 - 159 mg/dl BORDERLINE HIGH 160 - 189 mg/dl HIGH >190 mg/dl VERY HIGH Performed By: #### A 1C #### [facility] [address] [place] [address] Dr. Eddie Lerner Triglyceride [Mass/Vol] 99 mg/dL Normal <=150 [facility] Comment on above: Performed By: #### A 1C #### [facility] [address] [place] [address] Dr. Eddie Lerner VLDL CALC 19.8 mg/dL Normal [facility] Comment on above: Performed By: #### A 1C #### [facility] [address] [place] [address] Dr. Eddie Lerner LIVER PROFILEon 08-20-2022 Albumin [Mass/Vol] 2.8 g/dL Critically low 3.4-5.0 Th e [facility] Comment on above: Performed By: #### A 1C #### [facility] [address] [place] [address] Dr. Eddie Lerner Albumin/Globulin [Mass ratio] 0.6 {ratio} Normal [facility] Comment on above: Performed By: #### A 1C #### [facility] [address] [place] [address] Dr. Eddie Lerner ALP [Catalytic activity/Vol] 87 U/L Normal 46-116 [facility] Comment on above: Performed By: #### A 1C #### [facility] [address] [place] [address] Dr. Eddie Lerner ALT [Catalytic activity/Vol] 49 U/L Normal 16-63 [facility] Comment on above: Performed By: #### A 1C #### [facility] [address] [place] [address] Dr. Eddie Lerner AST [Catalytic activity/Vol] 36 U/L Normal 15-37 [facility] Comment on above: Performed By: #### A 1C #### [facility] [address] [address] [address] Eddie Lerner BILI, CONJUGATED 0.1 mg/dL Normal 0.0-0.2 [facility] Comment on above: Performed By: #### A 1C #### [facility] [address] [address] [address] Eddie Lerner Bilirubin [Mass/Vol] 0.4 mg/dL Normal 0.2-1.0 [facility] Comment on above: Performed By: #### A 1C #### [facility] [address] [address] [address] Eddie Lerner Globulin (S) [Mass/Vol] 4.4 g/dL Normal [facility] Comment on above: Performed By: #### A 1C #### [facility] [address] [place] [address] Dr. Eddie Lerner Protein [Mass/Vol] 7.2 g/dL Normal 6.4-8.2 [facility] Comment on above: Performed By: #### A 1C #### [facility] [address] [address] [address] Eddie Lerner POINT OF CARE GLUCOSEon 07-29 Glucose [Mass/Vol] 107 mg/dL Critically high 74-106 [facility] Comment on above: Performed By: #### P OCGLUC #### [facility] [address] [address] [address] Eddie Lerner Glucose [Mass/Vol] 108 mg/dL Critically high 74-106 [facility] Comment on above: Performed By: #### P OCGLUC ####[facility] [address] [address]Dr. Eddie Lerner TSHon 08-20-2022 TSH 2.247 uIU/mL Normal 0.358-3.740 [facility] Comment on above: Performed By: #### A 1C #### [facility] [address] [place] [address] Dr. Eddie Lerner CBC AUTO DIFFon 08-15-2022 BASO # 0.0 103/ul Normal 0.0-0.1 [facility] Comment on above: Performed By: #### C BC ####[facility] [address] [address] [address]Dr. Eddie Lerner Basophils/100 WBC (Bld) 0.4 % Normal 0.2-2.0 [facility] Comment on above: Performed By: #### C BC ####[facility] Rx[address] [place], [place] [address]Dr. Eddie Lerner EO # 0.2 103/ul Normal 0.0-0.7 [facility] Comment on above: Performed By: #### C BC ####[facility] [address] [place], [place] [address]Dr. Eddie Yann Eosinophils/100 WBC (Bld) 2.0 % Normal 0.9-7.0 [facility] Comment on above: Performed By: #### C BC ####[facility] [address] [place], [place] [address]Dr. Eddie Lerner Erythrocyte distribution width (RBC) [Ratio] 14.5 % Normal 11.0-15.0 [facility] Comment on above: Performed By: #### C BC ####[facility] [address] [place], [place] [address]Dr. Eddie Lerner Hematocrit (Bld) [Volume fraction] 40.5 % Critically low 42.0-54.0 [facility] Comment on above: Performed By: #### C BC ####[facility] [address] [place], [place] [address]Dr. Eddie Lerner Hemoglobin (Bld) [Mass/Vol] 13.1 g/dL Critically low 14.0-18.0 [facility] Comment on above: Performed By: #### C BC ####[facility] [address] [place], [place] [address]Dr. Eddie Lerner IG # 0.12 10e3/ul Critically high 0.00-0.03 [facility] Comment on above: Performed By: #### C BC ####[facility] [address] [place], [place] [address]Dr. Dainaquincy Lerner IG % 1.2 % Critically high 0.0-0.5 [facility] Comment on above: Performed By: #### C BC ####[facility] [id number] [place] [address]Dr. Eddie Yann LYMPH # 1.4 103/ul Normal 1.2-3.8 [facility] Comment on above: Performed By: #### C BC ####[facility] [address] [place] [address]Dr. Dainaquincy Lerner Lymphocytes/100 WBC (Bld) 13.6 % Critically low 20.5-60.0 [facility] Comment on above: Performed By: #### C BC ####[facility] [address] [place], [place] [address]Dr. Eddie Lerner MANUAL DIFF REQ NO Normal [facility] Comment on above: Performed By: #### C BC ####[facility] Azi[address] [place], [place] [address]Dr. Dainaquincy Lerner MCH (RBC) [Entitic mass] 29.8 pg Normal 25.9-34.0 [facility] Comment on above: Performed By: #### C BC ####[facility] Ivom[address] [place], [place] [address]Dr. Eddie Yann MCHC (RBC) [Mass/Vol] 32.3 g/dL Normal 29.9-35.2 [facility] Comment on above: Performed By: #### C BC ####[facility] Bx[address] [place], [place] [address]Dr. Eddie Lerner MCV (RBC) [Entitic vol] 92.0 fL Normal 80.0-94.0 [facility] Comment on above: Performed By: #### C BC ####[facility] O[address] [place], [place] [address]DrVaishali Lerner MONO # 0.5 103/ul Normal 0.3-0.8 [facility] Comment on above: Performed By: #### C BC ####[facility] [address] [place] [address]Dr. Eddie Lerner Monocytes/100 WBC (Bld) 4.8 % Normal 1.7-12.0 [facility] Comment on above: Performed By: #### C BC ####[facility] [address] [place] [address]DrVaishali Lerner NEUT # 8.1 103/ul Critically high 1.4-6.5 [facility] Comment on above: Performed By: #### C BC ####[facility] [address] [place] [address]DrVaishali Lerner Neutrophils/100 WBC (Bld) 78.0 % Critically high 43.0-75.0 [facility] Comment on above: Performed By: #### C BC ####[facility] [address] [place] [address]DrVaishali Lerner Platelet mean volume (Bld) [Entitic vol] 8.6 fL Critically low 9.5-13.5 [facility] Comment on above: Performed By: #### C BC ####[facility] [address] [place] [address]DrVaishali Lerner PLT 240 103/ul Normal 150-450 [facility] Comment on above: Performed By: #### C BC ####[facility] [address] [place] [address]Dr. Eddie Lerner RBC 4.40 106/ul Critically low 4.70-6.10 [facility] Comment on above: Performed By: #### C BC ####[facility] [address] [place] [id number] Lerner WBC 10.3 103/ul Normal 4.0-11.0 [facility] Comment on above: Performed By: #### C BC ####[facility] [address] [place] [id number]. Eddie Lerner CRPon 08-15-2022 CRP [Mass/Vol] mg/L Normal <=1.0 [facility] Comment on above: Performed By: #### A 1C #### [facility] [address] [address] [address] Eddie Lerner PROF CHEM 8 (BAS METB)on Anion gap [Moles/Vol] 14.4 mmol/L Normal [facility] Comment on above: Performed By: #### A 1C #### [facility] [address] [address] [address] Eddie Lerner Calcium [Mass/Vol] 9.2 mg/dL Normal 8.5-10.1 [facility] Comment on above: Performed By: #### A 1C #### [facility] [address] [address] [address] Eddie Lerner Chloride [Moles/Vol] 101 mmol/L Normal 98-107 [facility] Comment on above: Performed By: #### A 1C #### [facility] [address] [place] [address] Dr. Eddie Lerner CO2 [Moles/Vol] 25.2 mmol/L Normal 21.0-32.0 [facility] Comment on above: Performed By: #### A 1C #### [facility] [address] [place] [address] Dr. Eddie Lerner Creatinine [Mass/Vol] 3.07 mg/dL Critically high 0.70-1.30 [facility] Comment on above: Performed By: #### A 1C #### [facility] [address] [place] [address] Dr. Eddie Lerner EGFR-AF LIBYAN 25 mL/min/1.73m2 Critically low >=60 [facility] Comment on above: Performed By: #### A 1C #### [facility] [address] [address] [address] Eddie Lerner EGFR-NON AF LIBYAN 21 mL/min/1.73m2 Critically low >=60 [facility] Comment on above: Performed By: #### A 1C #### [facility] [address] [address] [address] Eddie Lerner Glucose [Mass/Vol] 415 mg/dL Critically high 74-106 [facility] Comment on above: Performed By: #### A 1C #### [facility] [address] [address] [address] Eddie Lerner Potassium [Moles/Vol] 5.6 mmol/L Critically high 3.5-5.1 [facility] Comment on above: Performed By: #### A 1C #### [facility] [address] [place] [address] Dr. Eddie Lerner Sodium [Moles/Vol] 135 mmol/L Critically low 136-145 Th e [facility] Comment on above: Performed By: #### A 1C #### [facility] [address] [place] [address] Dr. Eddie Lerner Urea nitrogen [Mass/Vol] 34.0 mg/dL Critically high 7.0-18.0 [facility] Comment on above: Performed By: #### A 1C #### [facility] [address] [place] [address] Dr. Eddie Lerner Urea nitrogen/Creatinine [Mass ratio] 11.1 mg/mg Normal [facility] Comment on above: Performed By: #### A 1C #### [facility] [address] [place] [address] Dr. Eddie Lerner [facility] 59 mm/hr Critically high <=20 [facility] Comment on above: Performed By: #### S EDR ####[facility] [address] [place], [place] [address]Dr. Eddie Lerner BNPon 06-06-2022 Natriuretic peptide B (Bld) [Mass/Vol] 1342.0 pg/mL Critically high <=900.0 [facility] Comment on above: Performed By: #### B COPY TECHNICIAN ####[facility] [address] [place], [place] [address]Dr. Eddie Lerner CBC AUTO DIFFon 06-06-2022 BASO # 0.1 103/ul Normal 0.0-0.1 [facility] Comment on above: Performed By: #### A 1C #### [facility] [address] [place] [address] Dr. Eddie Lerner Basophils/100 WBC (Bld) 0.6 % Normal 0.2-2.0 [facility] Comment on above: Performed By: #### A 1C #### [facility] [address] [place] [address] Dr. Eddie Lerner EO # 0.2 103/ul Normal 0.0-0.7 [facility] Comment on above: Performed By: #### A 1C #### [facility] [address] [place] [address] Dr. Eddie Lerner Eosinophils/100 WBC (Bld) 1.8 % Normal 0.9-7.0 [facility] Comment on above: Performed By: #### A 1C #### [facility] [address] [place] [address] Dr. Eddie Lerner Erythrocyte distribution width (RBC) [Ratio] 15.2 % Critically high 11.0-15.0 [facility] Comment on above: Performed By: #### A 1C #### [facility] [address] [place] [address] Dr. Eddie Lerner Hematocrit (Bld) [Volume fraction] 39.0 % Critically low 42.0-54.0 [facility] Comment on above: Performed By: #### A 1C #### [facility] [address] [place] [address] Dr. Eddie Lerner Hemoglobin (Bld) [Mass/Vol] 12.4 g/dL Critically low 14.0-18.0 [facility] Comment on above: Performed By: #### A 1C #### [facility] [address] [place] [address] Dr. Eddie Lerner IG # 0.21 10e3/ul Critically high 0.00-0.03 [facility] Comment on above: Performed By: #### A 1C #### [facility] [address] [place] [address] Dr. Eddie Lerner IG % 1.6 % Critically high 0.0-0.5 [facility] Comment on above: Performed By: #### A 1C #### [facility] [address] [place] [address] Dr. Eddie Lerner LYMPH # 1.9 103/ul Normal 1.2-3.8 [facility] Comment on above: Performed By: #### A 1C #### [facility] [address] [place] [address] Dr. Eddie Lerner Lymphocytes/100 WBC (Bld) 13.8 % Critically low 20.5-60.0 [facility] Comment on above: Performed By: #### A 1C #### [facility] [address] [place] [address] Dr. Eddie Lerner MANUAL DIFF REQ NO Normal [facility] Comment on above: Performed By: #### A 1C #### [facility] [address] [place] [address] Dr. Eddie Lerner MCH (RBC) [Entitic mass] 27.8 pg Normal 25.9-34.0 [facility] Comment on above: Performed By: #### A 1C #### [facility] [address] [place] [address] Dr. Eddie Lerner MCHC (RBC) [Mass/Vol] 31.8 g/dL Normal 29.9-35.2 [facility] Comment on above: Performed By: #### A 1C #### [facility] [address] [place] [address] Dr. Eddie Lerner MCV (RBC) [Entitic vol] 87.4 fL Normal 80.0-94.0 [facility] Comment on above: Performed By: #### A 1C #### [facility] [address] [place] [address] Dr. Eddie Lerner MONO # 0.8 103/ul Normal 0.3-0.8 [facility] Comment on above: Performed By: #### A 1C #### [facility] [address] [place] [address] Dr. Eddie Lerner Monocytes/100 WBC (Bld) 5.9 % Normal 1.7-12.0 [facility] Comment on above: Performed By: #### A 1C #### [facility] [address] [place] [address] Dr. Eddie Lerner NEUT # 10.3 103/ul Critically high 1.4-6.5 [facility] Comment on above: Performed By: #### A 1C #### [facility] [address] [place] [address] Dr. Eddie Lerner Neutrophils/100 WBC (Bld) 76.3 % Critically high 43.0-75.0 [facility] Comment on above: Performed By: #### A 1C #### [facility] [address] [place] [address] Dr. Eddie Lerner Platelet mean volume (Bld) [Entitic vol] 10.2 fL Normal 9.5-13.5 [facility] Comment on above: Performed By: #### A 1C #### [facility] [address] [place] [address] Dr. Eddie Lerner PLT 288 103/ul Normal 150-450 [facility] Comment on above: Performed By: #### A 1C #### [facility] [address] [place] [address] Dr. Eddie Lerner RBC 4.46 106/ul Critically low 4.70-6.10 [facility] Comment on above: Performed By: #### A 1C #### [facility] [address] [address] [address] Eddie Lerner WBC 13.5 103/ul Critically high 4.0-11.0 [facility] Comment on above: Performed By: #### A 1C #### [facility] [address] [place] [address] Dr. Eddie Lerner GLYCOHEMOGLOBIN A1Con 2022 ADA RECOMMENDATION SEE BELOW Normal [facility] Comment on above: Result Comment: ADA RECOMMENDED LIMIT 4.0 - 6.0 ADA THERAPEUTIC TARGET < 7.0 ACTION SUGGESTED > 7.0 Performed By: #### A 1C #### [facility] [address] [place] [address] Dr. Eddie Lerner Glucose [Mass/Vol] 283 mg/dL Normal [facility] Comment on above: Performed By: #### A 1C #### [facility] [address] [place] [address] Dr. Eddie Lerner HbA1c (Bld) [Mass fraction] 11.5 % Critically high 4.5-6.2 [facility] Comment on above: Performed By: #### A 1C #### [facility] [address] [address] [address] Eddie Lerner LIPID PROFILEon 06-06-2022 CHOL-HDL RATIO NORM SEE BELOW Normal [facility] Comment on above: Result Comment: 3.3 - 4.4 LOW RISK 4.4 - 7.1 AVERAGE RISK 7.1 - 11.0 MODERATE RISK >11.0 HIGH RISK Performed By: #### R ENAL, LIPID, LIVER, TSH #### [facility] [address] [address] [address] Eddie Lerner Cholesterol [Mass/Vol] 152 mg/dL Normal <=200 [facility] Comment on above: Performed By: #### R ENAL, LIPID, LIVER, TSH #### [facility] [address] [place] [address] Dr. Eddie Lerner Cholesterol in HDL [Mass/Vol] 51 mg/dL Normal 40-60 [facility] Comment on above: Performed By: #### R ENAL, LIPID, LIVER, TSH #### [facility] [address] [place] [address] Dr. Eddie Lerner Cholesterol in LDL [Mass/Vol] 61.0 mg/dL Normal [facility] Comment on above: Performed By: #### R ENAL, LIPID, LIVER, TSH #### [facility] [address] [place] [address] Dr. Eddie Lerner Cholesterol.total/C holesterol in HDL [Mass ratio] 3.0 {ratio} Normal [facility] Comment on above: Performed By: #### R ENAL, LIPID, LIVER, TSH #### [facility] [address] [place] [address] Dr. Eddie Lerner HDL NORMAL > or = 60 mg/dl - LO W CARDIOVASCULAR RISK <40 mg/dl - HIGH CARDIOVASCULAR RISK Normal [facility] Comment on above: Performed By: #### R ENAL, LIPID, LIVER, TSH #### [facility] [address] [place] [address] Dr. Eddie Lerner LDL CALC NORMAL SEE BELOW Normal [facility] Comment on above: Result Comment: <100 mg/dl OPTIMAL 100 - 129 mg/dl NEAR OR ABOVE OPTIMAL 130 - 159 mg/dl BORDERLINE HIGH 160 - 189 mg/dl HIGH >190 mg/dl VERY HIGH Performed By: #### R ENAL, LIPID, LIVER, TSH #### [facility] [address] [address] [address] Eddie Lerner Triglyceride [Mass/Vol] 200 mg/dL Critically high <=150 [facility] Comment on above: Performed By: #### R ENAL, LIPID, LIVER, TSH #### [facility] [address] [address] [address] Eddie Lerner VLDL CALC 40.0 mg/dL Normal [facility] Comment on above: Performed By: #### R ENAL, LIPID, LIVER, TSH #### [facility] [address] [address] [address] Eddie Lerner LIVER PROFILEon 06-06-2022 Albumin [Mass/Vol] 2.6 g/dL Critically low 3.4-5.[address] [facility] Comment on above: Performed By: #### R ENAL, LIPID, LIVER, TSH #### [facility] [address] [address] [address] Eddie Lerner Albumin/Globulin [Mass ratio] 0.6 {ratio} Normal [facility] Comment on above: Performed By: #### R ENAL, LIPID, LIVER, TSH #### [facility] [address] [place] [address] Dr. Eddie Lerner ALP [Catalytic activity/Vol] 120 U/L Critically high 46-116 [facility] Comment on above: Performed By: #### R ENAL, LIPID, LIVER, TSH #### [facility] [address] [place] [address] Dr. Eddie Lerner ALT [Catalytic activity/Vol] 22 U/L Normal 16-63 [facility] Comment on above: Performed By: #### R ENAL, LIPID, LIVER, TSH #### [facility] [address] [address] [address] Eddie Lerner AST [Catalytic activity/Vol] 15 U/L Normal 15-37 [facility] Comment on above: Performed By: #### R ENAL, LIPID, LIVER, TSH #### [facility] [address] [place] [address] Dr. Eddie Lerner BILI, CONJUGATED 0.1 mg/dL Normal 0.0-0.2 [facility] Comment on above: Performed By: #### R ENAL, LIPID, LIVER, TSH #### [facility] [address] [place] [address] Dr. Eddie Lerner Bilirubin [Mass/Vol] 0.3 mg/dL Normal 0.2-1.0 [facility] Comment on above: Performed By: #### R ENAL, LIPID, LIVER, TSH #### [facility] [address] [place] [address] Dr. Eddie Lerner Globulin (S) [Mass/Vol] 4.7 g/dL Normal [facility] Comment on above: Performed By: #### R ENAL, LIPID, LIVER, TSH #### [facility] [address] [place] [address] Dr. Eddie Lerner Protein [Mass/Vol] 7.3 g/dL Normal 6.4-8.2 [facility] Comment on above: Performed By: #### R ENAL, LIPID, LIVER, TSH #### [facility] [address] [place] [address] Dr. Eddie Lerner RENAL FUNCTION PANELon 06-06 Calcium [Mass/Vol] 9.0 mg/dL Normal 8.5-10.1 [facility] Comment on above: Performed By: #### R ENAL, LIPID, LIVER, TSH #### [facility] [address] [place] [address] Dr. Eddie Lerner Chloride [Moles/Vol] 96 mmol/L Critically low 98-107 [facility] Comment on above: Performed By: #### R ENAL, LIPID, LIVER, TSH #### [facility] [address] [place] [address] Dr. Eddie Lerner CO2 [Moles/Vol] 21.8 mmol/L Normal 21.0-32.0 [facility] Comment on above: Performed By: #### R ENAL, LIPID, LIVER, TSH #### [facility] [address] [place] [address] Dr. Eddie Lerner Creatinine [Mass/Vol] 2.38 mg/dL Critically high 0.70-1.30 [facility] Comment on above: Performed By: #### R ENAL, LIPID, LIVER, TSH #### [facility] [address] [address] [address] Eddie Lerner EGFR-AF LIBYAN 34 mL/min/1.73m2 Critically low >=60 [facility] Comment on above: Performed By: #### R ENAL, LIPID, LIVER, TSH #### [facility] [address] [address] [address] Eddie Lerner EGFR-NON AF LIBYAN 28 mL/min/1.73m2 Critically low >=60 [facility] Comment on above: Performed By: #### R ENAL, LIPID, LIVER, TSH #### [facility] [address] [address] [address] Eddie Lerner Glucose [Mass/Vol] 523 mg/dL Critically high 74-106 [facility] Comment on above: Performed By: #### R ENAL, LIPID, LIVER, TSH #### [facility] [address] [address] [address] Eddie Lerner Phosphate [Mass/Vol] 4.1 mg/dL Normal 2.6-4.7 [facility] Comment on above: Performed By: #### R ENAL, LIPID, LIVER, TSH #### [facility] [address] [address] [address] Eddie Lerner Potassium [Moles/Vol] 4.6 mmol/L Normal 3.5-5.1 [facility] Comment on above: Performed By: #### R ENAL, LIPID, LIVER, TSH #### [facility] [address] [address] [address] Eddie Lerner Sodium [Moles/Vol] 128 mmol/L Critically low 136-145 [facility] Comment on above: Performed By: #### R ENAL, LIPID, LIVER, TSH #### [facility] [address] [address] [address] Eddie Lerner Urea nitrogen [Mass/Vol] 28.0 mg/dL Critically high 7.0-18.0 [facility] Comment on above: Performed By: #### R ENAL, LIPID, LIVER, TSH #### [facility] [address] [place] [address] Dr. Eddie Lerner TSHon 06-06-2022 TSH 1.308 uIU/mL Normal 0.358-3.740 [facility] Comment on above: Performed By: #### R ENAL, LIPID, LIVER, TSH #### [facility] [address] [place] [address] Dr. Eddie Lerner UA RANDOMon 06-06-2022 Bilirubin Ql (U) Negative Normal NEGATIVE [facility] Comment on above: Performed By: #### U A #### [facility] [address] [place] [address] Dr. Eddie Lerner Clarity (U) CLEAR Normal CLEAR [facility] Comment on above: Performed By: #### U A #### [facility] [address] [place] [address] Dr. Eddie Lerner Color (U) LT. YELLOW Normal YELLOW [facility] Comment on above: Performed By: #### U A #### [facility] [address] [place] [address] Dr. Eddie Lerner Glucose Ql (U) >1000 Abnormal NEGATIVE [facility] Comment on above: Performed By: #### U A #### [facility] [address] [place] [address] Dr. Eddie Lerner Hemoglobin Ql (U) TRACE-INTACT Abnormal NEGATIVE [facility] Comment on above: Performed By: #### U A #### [facility] [address] [place] [address] Dr. Eddie Lerner Ketones Ql (U) Negative Normal NEGATIVE [facility] Comment on above: Performed By: #### U A #### [facility] [address] [place] [address] Dr. Eddie Lerner LEUKOCYTES Negative Normal NEGATIVE [facility] Comment on above: Performed By: #### U A #### [facility] [address] [place] [address] Dr. Eddie Lerner Nitrite Ql (U) Negative Normal NEGATIVE [facility] Comment on above: Performed By: #### U A #### [facility] [address] [address] [address] Eddie Lerner pH (U) 6.5 [pH] Normal 5-9 [facility] Comment on above: Performed By: #### U A #### [facility] [address] [address] [address] Eddie Lerner SPEC GRAVITY 1.010 Normal 1.005-<=1.025 [facility] Comment on above: Performed By: #### U A #### [facility] [address] [address] [address] Eddie Lerner UA PROTEIN 100 mg/dl Abnormal NEGATIVE/ TRACE [facility] Comment on above: Performed By: #### U A #### [facility] [address] [place] [address] Dr. Eddie Lerner Urobilinogen Qn (U) 0.2 {Chaya'U}/dL Normal 0.2 - 1. 0 [facility] Comment on above: Performed By: #### U A #### [facility] [address] [address] [address] Eddie Lerner VITAMIN D 25 OHon 06-06-2022 VIT D 25-OH 13.9 ng/mL Normal [facility] Comment on above: Performed By: #### V ITAD ####[facility] [address] [address]Dr. Eddie Lerner VIT D RANGES SEE BELOW Normal [facility] Comment on above: Result Comment: <20 ng/mL Vit D deficient 20 - <30 ng/mL Vit D insufficient 30 - 100 ng/mL Vit D sufficient >100 ng/mL Potential Toxicity Performed By: #### V ITAD ####[facility] [address] [address]Dr. Eddie Lerner ACID FAST SMEAR AND CXon Acid Fast Culture Negative Normal [facility] Comment on above: Result Comment: No a wendy fast bacilli isolated after 6 weeks. Performed By: #### A FB ####[facility] [address] [id number][address] Eddie Lerner Acid Fast Smear Negative Normal [facility] Comment on above: Performed By: #### A FB ####[facility] [id number] [id number] Lerner [employer] Specimen Processing Tissue Grinding Normal [facility] Comment on above: Performed By: #### A FB ####[facility] [address] [id number]. Eddie Lerner FUNGAL CULTUREon 01-19-2022 Fungus (Mycology) Culture Final report Normal [facility] Comment on above: Performed By: #### R ENAL, LIPID, LIVER, TSH #### [facility] [address] [address] [address] Eddie Lerner Fungus Stain Final report Normal [facility] Comment on above: Performed By: #### R ENAL, LIPID, LIVER, TSH #### [facility] [address] [address] [address] Eddie Lerner Result 1 Comment Normal [facility] Comment on above: Result Comment: ANNEMARIE/ Calcofluor preparation: no fungus observed. Performed By: #### R ENAL, LIPID, LIVER, TSH #### [facility] [address] [address] [address] Eddie Lerner Result Comment: No y east or mold isolated after 4 weeks. POINT OF CARE GLUCOSEon 12-28 Glucose [Mass/Vol] 177 mg/dL Critically high 74-106 [facility] Comment on above: Performed By: #### A 1C #### [facility] [address] [address] [address] dEdie Lerner Glucose [Mass/Vol] 200 mg/dL Critically high 74-106 [facility] Comment on above: Performed By: #### P OCGLUC ####[facility] [address] [address]Dr. Eddie Lerner Covid-19 PCR (CVDTB)on 12-28 SARS-CoV-2 (COVID-19) RNA SUDHA+probe Ql (Unsp spec) Not detected Normal NOT DETECTED [facility] Comment on above: Result Comment: This test is not yet approved or cleared by the [place] FDA. When there are no FDA-approved or cleared tests available, and other criteria are met, FDA can make tests available under an emergency access mechanism called an Emergency Use Authorization (EUA). The EUA for this test is supported by the [place] of Health and Human Service's (HHS's) declaration [...] SARS-CoV-2. Performed By: #### A 1C #### [facility] [address] [place] [address] Dr. Eddie Lerner PROF CHEM 8 (BAS METB)on Anion gap [Moles/Vol] 15.0 mmol/L Normal [facility] Comment on above: Performed By: #### R ENAL, LIPID, LIVER, TSH #### [facility] [address] [place] [address] Dr. Eddie Lerner Calcium [Mass/Vol] 9.3 mg/dL Normal 8.5-10.1 [facility] Comment on above: Performed By: #### R ENAL, LIPID, LIVER, TSH #### [facility] [address] [place] [address] Dr. Eddie Lerner Chloride [Moles/Vol] 105 mmol/L Normal 98-107 [facility] Comment on above: Performed By: #### R YUMIKO, LIPID, LIVER, TSH #### [facility] [address] [place] [address] Dr. Eddie Lerner CO2 [Moles/Vol] 22.1 mmol/L Normal 21.0-32.0 [facility] Comment on above: Performed By: #### R ENAL, LIPID, LIVER, TSH #### [facility] [address] [place] [address] Dr. Eddie Lerner Creatinine [Mass/Vol] 2.29 mg/dL Critically high 0.70-1.30 [facility] Comment on above: Performed By: #### R ENAL, LIPID, LIVER, TSH #### [facility] [address] [place] [address] Dr. Eddie Lerner EGFR-AF LIBYAN 35 mL/min/1.73m2 Critically low >=60 [facility] Comment on above: Performed By: #### R ENAL, LIPID, LIVER, TSH #### [facility] [address] [place] [address] Dr. Eddie Lerner EGFR-NON AF LIBYAN 29 mL/min/1.73m2 Critically low >=60 [facility] Comment on above: Performed By: #### R ENAL, LIPID, LIVER, TSH #### [facility] [address] [place] [address] Dr. Eddie Lerner Glucose [Mass/Vol] 115 mg/dL Critically high 74-106 [facility] Comment on above: Performed By: #### R ENAL, LIPID, LIVER, TSH #### [facility] [address] [place] [address] Dr. Eddie Lerner Potassium [Moles/Vol] 5.1 mmol/L Normal 3.5-5.1 [facility] Comment on above: Performed By: #### R ENAL, LIPID, LIVER, TSH #### [facility] [address] [place] [address] Dr. Eddie Lerner Sodium [Moles/Vol] 137 mmol/L Normal 136-145 [facility] Comment on above: Performed By: #### R ENAL, LIPID, LIVER, TSH #### [facility] [address] [place] [address] Dr. Eddie Lerner Urea nitrogen [Mass/Vol] 26.0 mg/dL Critically high 7.0-18.0 [facility] Comment on above: Performed By: #### R ENAL, LIPID, LIVER, TSH #### [facility] [address] [address] [address] Eddie Lerner Urea nitrogen/Creatinine [Mass ratio] 11.4 mg/mg Normal [facility] Comment on above: Performed By: #### R ENAL, LIPID, LIVER, TSH #### [facility] [address] [address] [address] Eddie Lerner TISSUE CULTUREon 01-08-2022 Anaerobic Culture, Extended Incubation Final report Normal [facility] Comment on above: Performed By: #### C XTISSU ####[facility] [address] [address]Dr. Eddie Lerner Result 1 Comment Normal [facility] Comment on above: Result Comment: Diph theroids, not Corynebacterium jeikeium Light growth Susceptibility not normally performed on this organism. Performed By: #### C XTISSU ####[facility] [address] [place] [address]Dr. Eddie Lerner Result Comment: No a naerobes recovered. Tissue Culture Final report Abnormal [facility] Comment on above: Performed By: #### C XTISSU ####[facility] [address] [address]Dr. Eddie Lerner POINT OF CARE GLUCOSEon 11-28 Glucose [Mass/Vol] 89 mg/dL Normal 74-106 [facility] Comment on above: Performed By: #### R ENAL, LIPID, LIVER, TSH #### [facility] [address] [address] [address] Eddie Lerner Glucose [Mass/Vol] 85 mg/dL Normal 74-106 [facility] Comment on above: Performed By: #### P OCGLUC ####[facility] [address] [address]Dr. Eddie Lerner GRAM STAINon 12-21-2021 COMMENTS NO ORGANISMS OBSERVED Normal [facility] Comment on above: Performed By: #### R ENAL, LIPID, LIVER, TSH #### [facility] [address] [address] [address] Eddie Lerner DIPHTHEROIDS Normal [facility] Comment on above: Performed By: #### R ENAL, LIPID, LIVER, TSH #### [facility] [address] [address] [address] Eddie Lerner EPITHELIALS Normal [facility] Comment on above: Performed By: #### R ENAL, LIPID, LIVER, TSH #### [facility] [address] [address] [address] Eddie Lerner FUNGAL ELEMENTS Normal [facility] Comment on above: Performed By: #### R ENAL, LIPID, LIVER, TSH #### [facility] [address] [address] [address] Eddie Lerner GRAM NEG BACILLI Normal [facility] Comment on above: Performed By: #### R ENAL, LIPID, LIVER, TSH #### [facility] [address] [address] [address] Eddie PRINGLE NEG DIPPLOCOCCI Normal [facility] Comment on above: Performed By: #### R ENAL, LIPID, LIVER, TSH #### [facility] [address] [address] [address] Eddie Lerner GRAM POS BACILLI Normal [facility] Comment on above: Performed By: #### R ENAL, LIPID, LIVER, TSH #### [facility] [address] [address] [address] Eddie Lerner GRAM POSITIVE COCCI Normal [facility] Comment on above: Performed By: #### R ENAL, LIPID, LIVER, TSH #### [facility] [address] [address] [address] Eddie Lerner GRAM STAIN SOURCE Lt 1st Metatarsal Bone Normal [facility] Comment on above: Performed By: #### R ENAL, LIPID, LIVER, TSH #### [facility] [address] [address] [address] Eddie Lerner GS_DIPTH Normal [facility] Comment on above: Performed By: #### R ENAL, LIPID, LIVER, TSH #### [facility] [address] [address] [address] Eddie Lerner WBC RARE Normal [facility] Comment on above: Performed By: #### R ENAL, LIPID, LIVER, TSH #### [facility] [address] [place], [place] [address] Dr. Eddie Lerner POINT OF CARE GLUCOSEon 11-28 Glucose [Mass/Vol] 148 mg/dL Critically high 74-106 [facility] Comment on above: Performed By: #### A 1C #### [facility] [address] [place], [place] [address] Dr. Eddie Lerner Glucose [Mass/Vol] 100 mg/dL Normal 74-106 [facility] Comment on above: Performed By: #### P OCGLUC ####[facility] [address] [place], [place] [id number]. Eddie Lerner Glucose [Mass/Vol] 85 mg/dL Normal 74-106 [facility] Comment on above: Performed By: #### P OCGLUC ####[facility] [address] [place], [place] [address]Zp. Eddie Lerner Glucose [Mass/Vol] 83 mg/dL Normal 74-106 [facility] Comment on above: Performed By: #### R ENAL, LIPID, LIVER, TSH #### [facility] [address] [place], [place] [address] Dr. Eddie Lerner [facility]28 SARS-CoV-2 (COVID-19) RNA SUDHA+probe Ql (Unsp spec) Not detected Normal NOT DETECTED [facility] Comment on above: Result Comment: This test is not yet approved or cleared by the [place] FDA. When there are no FDA-approved or cleared tests available, and other criteria are met, FDA can make tests available under an emergency access mechanism called an Emergency Use Authorization (EUA). The EUA for this test is supported by the [place] of Health and Human Service's (HHS's) declaration [...] with SARS-CoV-2. Performed By: #### C VDTBH ####[facility] [address] [address]Dr. Eddie Lerner PROF CHEM 8 (BAS METB)on Anion gap [Moles/Vol] 11.5 mmol/L Normal [facility] Comment on above: Performed By: #### R ENAL, LIPID, LIVER, TSH #### [facility] [address] [address] [address] Eddie Lerner Calcium [Mass/Vol] 9.0 mg/dL Normal 8.5-10.1 [facility] Comment on above: Performed By: #### R ENAL, LIPID, LIVER, TSH #### [facility] [address] [place] [address] Dr. Eddie Lerner Chloride [Moles/Vol] 102 mmol/L Normal 98-107 [facility] Comment on above: Performed By: #### R ENAL, LIPID, LIVER, TSH #### [facility] [address] [address] [address] Eddie Lerner CO2 [Moles/Vol] 24.8 mmol/L Normal 21.0-32.0 [facility] Comment on above: Performed By: #### R ENAL, LIPID, LIVER, TSH #### [facility] [address] [address] [address] Eddie Lerner Creatinine [Mass/Vol] 2.19 mg/dL Critically high 0.70-1.30 [facility] Comment on above: Performed By: #### R ENAL, LIPID, LIVER, TSH #### [facility] [address] [place] [address] Dr. Eddie Lerner EGFR-AF LIBYAN 37 mL/min/1.73m2 Critically low >=60 [facility] Comment on above: Performed By: #### R ENAL, LIPID, LIVER, TSH #### [facility] [address] [place] [address] Dr. Eddie Lerner EGFR-NON AF LIBYAN 31 mL/min/1.73m2 Critically low >=60 [facility] Comment on above: Performed By: #### R ENAL, LIPID, LIVER, TSH #### [facility] [address] [address] [address] Eddie Lerner Glucose [Mass/Vol] 330 mg/dL Critically high 74-106 [facility] Comment on above: Performed By: #### R ENAL, LIPID, LIVER, TSH #### [facility] [address] [address] [address] Eddie Lerner Potassium [Moles/Vol] 5.3 mmol/L Critically high 3.5-5.1 [facility] Comment on above: Performed By: #### R ENAL, LIPID, LIVER, TSH #### [facility] [address] [address] [address] Eddie Lerner Sodium [Moles/Vol] 133 mmol/L Critically low 136-[address] [facility] Comment on above: Performed By: #### R ENAL, LIPID, LIVER, TSH #### [facility] [address] [address] [address] Eddie Lerner Urea nitrogen [Mass/Vol] 25.0 mg/dL Critically high 7.0-18.0 [facility] Comment on above: Performed By: #### R ENAL, LIPID, LIVER, TSH #### [facility] [address] [address] [address] Eddie Lerner Urea nitrogen/Creatinine [Mass ratio] 11.4 mg/mg Normal [facility] Comment on above: Performed By: #### R ENAL, LIPID, LIVER, TSH #### [facility] [address] [address] [address] Eddie Lerner Comprehensive Metabolic Pane babatunde 08-01-2021 Albumin [Mass/Vol] 2.8 g/dL Low 3.2-5.5 [facility] Comment on above: Order Comment: REDRA W FOR SHORT DRAW AND HEMOLYSIS Performed By: #### P P #### [address] Albumin/Globulin [Mass ratio] 0.7 {ratio} Normal [facility] Comment on above: Order Comment: REDRA W FOR SHORT DRAW AND HEMOLYSIS Performed By: #### P P #### [address] ALP [Catalytic activity/Vol] 87 U/L Normal 32-92 [facility] Comment on above: Order Comment: REDRA W FOR SHORT DRAW AND HEMOLYSIS Performed By: #### P P #### [address] ALT [Catalytic activity/Vol] 18 U/L Normal 10-60 [facility] Comment on above: Order Comment: REDRA W FOR SHORT DRAW AND HEMOLYSIS Performed By: #### P P #### [address] AST [Catalytic activity/Vol] 20 U/L Normal 10-42 [facility] Comment on above: Order Comment: REDRA W FOR SHORT DRAW AND HEMOLYSIS Performed By: #### P P #### [place] [address] [place] Bilirubin [Mass/Vol] 0.6 mg/dL Normal 0.3-1.2 [facility] Comment on above: Order Comment: REDRA W FOR SHORT DRAW AND HEMOLYSIS Performed By: #### P P #### [place] [address] [place] Calcium [Mass/Vol] 8.9 mg/dL Normal 8.2-10.2 [facility] Comment on above: Order Comment: REDRA W FOR SHORT DRAW AND HEMOLYSIS Performed By: #### P P #### [place] [address] [place] Chloride [Moles/Vol] 103 mmol/L Normal 95-114 [facility] Comment on above: Order Comment: REDRA W FOR SHORT DRAW AND HEMOLYSIS Performed By: #### P P #### [place] [address] [place] CO2 [Moles/Vol] 24.7 mmol/L Normal 22.0-30.0 [facility] Comment on above: Order Comment: REDRA W FOR SHORT DRAW AND HEMOLYSIS Performed By: #### P P #### [address] Creatinine [Mass/Vol] 2.34 mg/dL High 0.64-1.27 [facility] Comment on above: Order Comment: REDRA W FOR SHORT DRAW AND HEMOLYSIS Performed By: #### P P #### [address] Estimated GFR ( Camilla 34 [facility] Comment on above: Order Comment: REDRA W FOR SHORT DRAW AND HEMOLYSIS Result Comment: GFR estimated reference range: According to KDOQI guidelines, <60 ml/min/1.73m2 is sufficient to diagnose a patient with chronic kidney disease. Performed By: #### P P #### [address] Estimated GFR (Non- Am 28 [facility] Comment on above: Order Comment: REDRA W FOR SHORT DRAW AND HEMOLYSIS Performed By: #### P P #### [address] Globulin (S) [Mass/Vol] 3.9 g/dL Normal [facility] Comment on above: Order Comment: REDRA W FOR SHORT DRAW AND HEMOLYSIS Performed By: #### P P #### [address] Glucose [Mass/Vol] 171 mg/dL High 70-100 [facility] Comment on above: Order Comment: REDRA W FOR SHORT DRAW AND HEMOLYSIS Result Comment: Wallace om Glucose Reference Range is dependent on time and content of last meal. Glucose of more than 200 mg/dL in a nonstressed, ambulatory subject supports the diagnosis of Diabetes Mellitus. ADA recommended reference range Performed By: #### P P #### [address] Potassium [Moles/Vol] 4.0 mmol/L Normal 3.5-5.1 [facility] Comment on above: Order Comment: REDRA W FOR SHORT DRAW AND HEMOLYSIS Performed By: #### P P #### [address] Protein [Mass/Vol] 6.7 g/dL Normal 6.1-7.9 [facility] Comment on above: Order Comment: REDRA W FOR SHORT DRAW AND HEMOLYSIS Performed By: #### P P #### [address] Sodium [Moles/Vol] 138 mmol/L Normal 136-146 [facility] Comment on above: Order Comment: REDRA W FOR SHORT DRAW AND HEMOLYSIS Performed By: #### P P #### [address] Urea nitrogen [Mass/Vol] 18 mg/dL Normal 9-23 [facility] Comment on above: Order Comment: REDRA W FOR SHORT DRAW AND HEMOLYSIS Performed By: #### P P #### [address] Ferritinon 08-01-2021 Ferritin [Mass/Vol] 151.9 ng/mL Normal 23.9-336.2 [facility] Comment on above: Order Comment: Reaso n for Exam CKD (chronic kidney disease) stage 4, GFR 15-29 ml/min;Diabe Performed By: #### C MP, CBC, MG, TROP, BNP #### [address] Hemogram CBC Without Diffon 08-01-2021 Erythrocyte distribution width (RBC) [Ratio] 15.9 % High 12.0-14.8 [facility] Comment on above: Order Comment: REDRA W FOR SHORT DRAW AND HEMOLYSIS Performed By: #### P P #### [address] Hematocrit (Bld) [Volume fraction] 38.9 % Normal 38.8-50.0 [facility] Comment on above: Order Comment: REDRA W FOR SHORT DRAW AND HEMOLYSIS Performed By: #### P P #### [address] Hemoglobin (Bld) [Mass/Vol] 12.9 g/dL Low 13.0-17.0 [facility] Comment on above: Order Comment: REDRA W FOR SHORT DRAW AND HEMOLYSIS Performed By: #### P P #### [address] MCH (RBC) [Entitic mass] 28.4 pg Normal 27.5-35.2 [facility] Comment on above: Order Comment: REDRA W FOR SHORT DRAW AND HEMOLYSIS Performed By: #### P P #### [address] MCV (RBC) [Entitic vol] 85.7 fL Normal 83.5-101 [facility] Comment on above: Order Comment: REDRA W FOR SHORT DRAW AND HEMOLYSIS Performed By: #### P P #### [address] Mean Corpuscular HGB Conc 33.1 g/dL Normal 32.5-35.6 [facility] Comment on above: Order Comment: REDRA W FOR SHORT DRAW AND HEMOLYSIS Performed By: #### P P #### [address] Platelet mean volume (Bld) [Entitic vol] 7.8 fL Normal 6.6-10.1 [facility] Comment on above: Order Comment: REDRA W FOR SHORT DRAW AND HEMOLYSIS Result Comment: PERF ORMED BY: [place] [address] PATHOLOGIST [employer] JORDAN RODRIGUEZ M.D. Performed By: #### P P #### [address] Platelets (Bld) [#/Vol] 352 10*3/uL Normal 150-450 [facility] Comment on above: Order Comment: REDRA W FOR SHORT DRAW AND HEMOLYSIS Performed By: #### P P #### [address] RBC (Bld) [#/Vol] 4.54 10*6/uL Normal 3.90-5.60 [facility] Comment on above: Order Comment: REDRA W FOR SHORT DRAW AND HEMOLYSIS Performed By: #### P P #### [address] WBC (Bld) [#/Vol] 9.1 10*3/uL Normal 4.1-10.5 [facility] Comment on above: Order Comment: REDRA W FOR SHORT DRAW AND HEMOLYSIS Performed By: #### P P #### [address] Iron and TIBC Profileon 04- % Iron Saturation 24.0 % Normal 20-50 [facility] Comment on above: Order Comment: REDRA W FOR SHORT DRAW AND HEMOLYSIS Performed By: #### P P #### [address] Iron [Mass/Vol] 47 ug/dL Normal 40-160 [facility] Comment on above: Order Comment: REDRA W FOR SHORT DRAW AND HEMOLYSIS Performed By: #### P P #### [address] Total Iron Binding Capacity 192 ug/dL Low 255-450 [facility] Comment on above: Order Comment: REDRA W FOR SHORT DRAW AND HEMOLYSIS Performed By: #### P P #### [address] Transferrin [Mass/Vol] 137 mg/dL Low 180-380 [facility] Comment on above: Order Comment: REDRA W FOR SHORT DRAW AND HEMOLYSIS Performed By: #### P P #### [address] Magnesiumon 08-01-2021 Magnesium [Mass/Vol] 2.2 mg/dL Normal 1.6-2.6 [facility] Comment on above: Order Comment: REDRA W FOR SHORT DRAW AND HEMOLYSIS Performed By: #### P P #### [address] Parathyroid Hormone Intacton 08-01-2021 Parathyroid Hormone Intact 31.2 pg/mL Normal 12-88 [facility] Comment on above: Order Comment: Reaso n for Exam CKD (chronic kidney disease) stage 4, GFR 15-29 ml/min;Diabe Result Comment: PERF ORMED BY: [place] [address] PATHOLOGIST [employer] JORDAN RODRIGUEZ M.D. Performed By: #### C MP, CBC, MG, TROP, BNP #### [address] Uric Acidon 08-01-2021 Urate [Mass/Vol] 8.4 mg/dL High 2.6-7.2 [facility] Comment on above: Order Comment: REDRA W FOR SHORT DRAW AND HEMOLYSIS Performed By: #### P P #### [address] Vitamin D 25 Hydroxy Totalon 08-01-2021 Vitamin D 25 Hydroxy Total 28.2 ng/mL Low 30-100 [facility] Comment on above: Order Comment: Reaso n for Exam CKD (chronic kidney disease) stage 4, GFR 15-29 ml/min;Diabe Result Comment: ADA MIN D STATUS 25(OH)VITAMIN D RANGE (ng/mL) Deficient <20 Insufficient 20 to <30 Sufficient 30 to 100 Reference: kAi MF,Oriana NC, Elli JONAS, et al. Evaluation,treatment, and prevention of vitamin D deficiency; an Endocrine Society clinical practice guideline. JCEM. 2010; 96(7):1911-30. Performed By: #### C MP, CBC, MG, TROP, BNP #### [address] Complete Pulmonary Functiono n 09-28-2020 Complete Pulmonary Function [place] [address] Pulmonary Function Signed Patient: Rashard Lyman MR#: [id number] : 1960 Acct:[id number] Age/Sex: 60 / M ADM Date: 09/28/20 Loc: RT Room: Type: [facility] Attending Dr: USMAN Stover APRN Ordering Provider: Latrice Lehman APRN, ACNP-BC Date of Service: 09/28/20 Accession #: Copies to: MD Latrice Logan APRN, ACNP-BC HISTORY: This is a 60-year-old, 76-inch tall, 333-pound male, reformed smoker, referred by Latrice Lehman [facility], and normally followed by Dr. Garcia [...] to 2.21 L or 50% predicted. The YVT18-65% is reduced at 1.92 L/sec or 54% predicted. After administration of bronchodilators, there is an insignificant 5% improvement in the forced vital capacity and 5% improvement in the FEV1. The DGM16-05% improves insignificantly by 10%. LUNG VOLUMES: Lung [...] adequate pulmonary function studies reveal evidence of evsn-eo-gdzutfha restriction without clear evidence of obstruction nor [...] 09/28/20 1305 Signed By: 09/28/20 1505 Normal [facility] echo limitedon 1 [facility] echo limited [facility] Main [place] [address] [place] [address] Echocardiogram Signed Patient: Rashard Lyman MR#: [id number] : 1960 Acct:[id number] Age/Sex: 60 / M ADM Date: 09/06/20 Loc: Room: Type: [facility] Attending Dr: Gautam Bazan MD Ordering Provider: Gautam Bazan MD Date of Service: 09/06/20 [facility] echo limited: re assess pericardial effusions Copies to: Nancy Jackson MD, [facility] Gautam Bazan MD Weight: 354 lb [...] 09/06/20 1626 Dictated By: Nancy Jackson MD, [facility] 09/06/20 1232 Signed By: 09/06/20 1626 Normal [facility] Albumin [Mass/volume] in Ser um or Plasmaon 08-25-2020 Albumin [Mass/Vol] 2.0 g/dL 3.2-5.5 [facility] Basophils Auto (Bld) [#/Vol] on 08-25-2020 Basophils (Bld) [#/Vol] 0.0 10*3/uL 0.0-0.2 [facility] Basophils/100 WBC Auto (Bld) on 08-25-2020 Basophils/100 WBC (Bld) 0.1 % [facility] Blood anisocytosis detection on 08-25-2020 Anisocytosis Ql (Bld) Slight [facility] Blood hemoglobin measurement (mass/volume)on 08-25-2020 Hemoglobin (Bld) [Mass/Vol] 10.1 g/dL 13.0-17.0 [facility] Blood leukocytes automated c ount (number/volume)on 08-25-2020 WBC (Bld) [#/Vol] 12.6 10*3/uL 4.5-11.0 [facility] Blood polychromasia detectio n by light microscopyon 08-25-2020 Polychromasia LM Ql (Bld) Slight [facility] Creatinine and Glomerular fi ltration rate.predicted panel (S/P/Bld)on 08-25-2020 Creatinine [Mass/Vol] 4.06 mg/dL 0.64-1.27 [facility] ECG 12 lead ECGon 08-25-2020 ECG 12 lead ECG [facility] [place] [address] Electrocardiograph Report Signed Patient: Rashard Lyman MR#: [id number] : 1960 Acct:[id number] Age/Sex: 60 / M ADM Date: 08/18/20 Loc: Room: [address] [place] [address] Type: ADM IN Attending Dr: Gordon Ewing [...] 08/25/20 0719 Signed By: 08/25/20 0951 Normal [facility] Eosinophils Auto (Bld) [#/Vo l]on 08-25-2020 Eosinophils (Bld) [#/Vol] 0.0 10*3/uL 0.0-0.45 [facility] Eosinophils/100 WBC Auto (Bl d)on 08-25-2020 Eosinophils/100 WBC (Bld) 0.1 % [facility] Erythrocyte distribution wid th Auto (RBC) [Ratio]on 08-25-2020 Erythrocyte distribution width (RBC) [Ratio] 16.6 % 12.0-14.8 [facility] Estimated glomerular filtrat ion rate (GFR) non- Americanon 08-25-2020 GFR/1.73 sq M.predicted among non-blacks MDRD (S/P/Bld) [Vol rate/Area] 15 mL/Min [facility] Glucose Glucometer (BldC) [M ass/Vol]on 08-25-2020 Glucose [Mass/Vol] 122 mg/dL [facility] Comment on above: Random Glucose Refer ence Range is dependent on time and content of last meal. Glucose of more than 200 mg/dL in a nonstressed, ambulatory subject supports the diagnosis of Diabetes Mellitus. Glucose Poct Glucometerson 0 08-25-2020 Commemt1 Glu2: Cleaned Meter [facility] Comment on above: Result Comment: PERF ORMED BY: [place] [address] PATHOLOGIST IN[employer] JORDAN RODRIGUEZ M.D. Performed By: #### P P #### [address] Glucose [Mass/Vol] 122 mg/dL Normal [facility] Comment on above: Result Comment: Wallace om Glucose Reference Range is dependent on time and content of last meal. Glucose of more than 200 mg/dL in a nonstressed, ambulatory subject supports the diagnosis of Diabetes Mellitus. Performed By: #### P P #### [address] Commemt1 Glu2: Cleaned Meter [facility] Comment on above: Result Comment: PERF ORMED BY: [facility] [address] [place] [address] PATHOLOGIST INSTRUCTOR [employer] JORDAN RODRIGUEZ M.D. Performed By: #### V BG #### Point of Care testing , Glucose [Mass/Vol] 104 mg/dL Normal [facility] Comment on above: Result Comment: Wallace om Glucose Reference Range is dependent on time and content of last meal. Glucose of more than 200 mg/dL in a nonstressed, ambulatory subject supports the diagnosis of Diabetes Mellitus. Performed By: #### V BG #### Point of Care testing , Glucose [Mass/Vol] 115 mg/dL Normal [facility] Comment on above: Result Comment: Wallace om Glucose Reference Range is dependent on time and content of last meal. Glucose of more than 200 mg/dL in a nonstressed, ambulatory subject supports the diagnosis of Diabetes Mellitus. PERFORMED BY: [facility] [address] [place] [address] PATHOLOGIST IN[employer]CTOR [employer] JORDAN RODRIGUEZ M.D. Performed By: #### V BG #### Point of Care testing , Hematocrit Auto (Bld) [Volum e fraction]on 08-25-2020 Hematocrit (Bld) [Volume fraction] 31.7 % 38.8-50.0 [facility] Laboratory - Hematology and Cell countson 08-25-2020 Nucleated RBC/100 WBC (Bld) [Ratio] 0.2 % 0-0.5 [facility] Lymphocytes Auto (Bld) [#/Vo l]on 08-25-2020 Lymphocytes (Bld) [#/Vol] 1.1 10*3/uL 1.00-4.8 [facility] Lymphocytes/100 WBC Auto (Bl d)on 08-25-2020 Lymphocytes/100 WBC (Bld) 8.9 % [facility] MCH Auto (RBC) [Entitic mass ]on 08-25-2020 MCH (RBC) [Entitic mass] 26.2 pg 27.5-35.2 [facility] MCHC Auto (RBC) [Mass/Vol]on 08-25-2020 MCHC (RBC) [Mass/Vol] 31.9 g/dL 32.5-35.6 [facility] MCV Auto (RBC) [Entitic vol] on 08-25-2020 MCV (RBC) [Entitic vol] 82.3 fL 83.5-101 [facility] Monocytes Auto (Bld) [#/Vol] on 08-25-2020 Monocytes (Bld) [#/Vol] 1.2 10*3/uL 0.0-0.8 [facility] Monocytes/100 WBC Auto (Bld) on 08-25-2020 Monocytes/100 WBC (Bld) 9.6 % [facility] Neutrophils Auto (Bld) [#/Vo l]on 08-25-2020 Neutrophils (Bld) [#/Vol] 10.2 10*3/uL 1.8-7.7 [facility] Neutrophils/100 WBC Auto (Bl d)on 08-25-2020 Neutrophils/100 WBC (Bld) 81.3 % [facility] No Panel Informationon 08-25 Bedside Glucose Comment Glu2: cleaned meter [facility] Estimated GFR () 18 mL/Min [facility] Comment on above: GFR estimated refere nce range: According to KDOQI guidelines, <60 ml/min/1.73m2 is sufficient to diagnose a patient with chronic kidney disease. Pharmacy Creatinine Clearance (Chem 31.84 [facility] Platelet Estimate Normal Normal [facility] Platelet Morphology Comment Normal Normal [facility] Phosphate [Mass/volume] in S miki or Plasmaon 08-25-2020 Phosphate [Mass/Vol] 5.3 mg/dL 2.5-4.6 [facility] Platelet mean volume Auto (B ld) [Entitic vol]on 08-25-2020 Platelet mean volume (Bld) [Entitic vol] 7.1 fL 6.6-10.1 [facility] Platelets Auto (Bld) [#/Vol] on 08-25-2020 Platelets (Bld) [#/Vol] 388 10*3/uL 150-450 [facility] RBC Auto (Bld) [#/Vol]on RBC (Bld) [#/Vol] 3.85 10*6/uL 3.90-5.60 [facility] RBC morphologyon 08-25-2020 RBC morphology finding Nom (Bld) N/A [facility] Renal Function Panelon 08-25 Albumin [Mass/Vol] 2.0 g/dL Low 3.2-5.5 [facility] Comment on above: Performed By: #### V BG #### Point of Care testing , Calcium [Mass/Vol] 8.7 mg/dL Normal 8.2-10.2 [facility] Comment on above: Performed By: #### V BG #### Point of Care testing , Chloride [Moles/Vol] 99 mmol/L Normal 95-114 [facility] Comment on above: Performed By: #### V BG #### Point of Care testing , CO2 [Moles/Vol] 26.2 mmol/L Normal 22.0-30.0 [facility] Comment on above: Performed By: #### V BG #### Point of Care testing , Creatinine [Mass/Vol] 4.06 mg/dL High 0.64-1.27 [facility] Comment on above: Performed By: #### V BG #### Point of Care testing , Creatinine Clr Calc Pharmacy 31.84 [facility] Comment on above: Result Comment: PERF ORMED BY: [facility] [address] [place] [address] PATHOLOGIST INSTRU[employer] JORDAN RODRIGUEZ M.D. Performed By: #### V BG #### Point of Care testing , Estimated GFR ( Camilla 18 [facility] Comment on above: Result Comment: GFR estimated reference range: According to KDOQI guidelines, <60 ml/min/1.73m2 is sufficient to diagnose a patient with chronic kidney disease. Performed By: #### V BG #### Point of Care testing , Estimated GFR (Non- Am 15 [facility] Comment on above: Performed By: #### V BG #### Point of Care testing , Glucose [Mass/Vol] 113 mg/dL High 70-100 [facility] Comment on above: Result Comment: Wallace Glucose Reference Range is dependent on time and content of last meal. Glucose of more than 200 mg/dL in a nonstressed, ambulatory subject supports the diagnosis of Diabetes Mellitus. ADA recommended reference range Performed By: #### V BG #### Point of Care testing , Phosphate [Mass/Vol] 5.3 mg/dL High 2.5-4.6 [facility] Comment on above: Performed By: #### V BG #### Point of Care testing , Potassium [Moles/Vol] 4.6 mmol/L Normal 3.5-5.1 [facility] Comment on above: Performed By: #### V BG #### Point of Care testing , Sodium [Moles/Vol] 135 mmol/L Low 136-146 [facility] Comment on above: Performed By: #### V BG #### Point of Care testing , Urea nitrogen [Mass/Vol] 75 mg/dL High 9-23 [facility] Comment on above: Performed By: #### V BG #### Point of Care testing , Scan and CBCon 08-25-2020 Anisocytosis Ql (Bld) Slight Normal [facility] Comment on above: Performed By: #### V BG #### Point of Care testing , Basophils (Bld) [#/Vol] 0.0 10*3/uL Normal 0.0-0.2 [facility] Comment on above: Performed By: #### V BG #### Point of Care testing , Basophils/100 WBC (Bld) 0.1 % Normal . [facility] Comment on above: Performed By: #### V BG #### Point of Care testing , Eosinophils (Bld) [#/Vol] 0.0 10*3/uL Normal 0.0-0.45 [facility] Comment on above: Performed By: #### V BG #### Point of Care testing , Eosinophils/100 WBC (Bld) 0.1 % Normal . [facility] Comment on above: Performed By: #### V BG #### Point of Care testing , Erythrocyte distribution width (RBC) [Ratio] 16.6 % High 12.0-14.8 [facility] Comment on above: Performed By: #### V BG #### Point of Care testing , Hematocrit (Bld) [Volume fraction] 31.7 % Low 38.8-50.0 [facility] Comment on above: Performed By: #### V BG #### Point of Care testing , Hemoglobin (Bld) [Mass/Vol] 10.1 g/dL Low 13.0-17.0 [facility] Comment on above: Performed By: #### V BG #### Point of Care testing , Lymphocytes (Bld) [#/Vol] 1.1 10*3/uL Normal 1.00-4.8 [facility] Comment on above: Performed By: #### V BG #### Point of Care testing , Lymphocytes/100 WBC (Bld) 8.9 % Normal . [facility] Comment on above: Performed By: #### V BG #### Point of Care testing , MCH (RBC) [Entitic mass] 26.2 pg Low 27.5-35.2 [facility] Comment on above: Performed By: #### V BG #### Point of Care testing , MCV (RBC) [Entitic vol] 82.3 fL Low 83.5-101 [facility] Comment on above: Performed By: #### V BG #### Point of Care testing , Mean Corpuscular HGB Conc 31.9 g/dL Low 32.5-35.6 [facility] Comment on above: Performed By: #### V BG #### Point of Care testing , Monocytes (Bld) [#/Vol] 1.2 10*3/uL High 0.0-0.8 [facility] Comment on above: Performed By: #### V BG #### Point of Care testing , Monocytes/100 WBC (Bld) 9.6 % Normal . [facility] Comment on above: Performed By: #### V BG #### Point of Care testing , Neutrophils (Bld) [#/Vol] 10.2 10*3/uL High 1.8-7.7 [facility] Comment on above: Performed By: #### V BG #### Point of Care testing , Neutrophils/100 WBC (Bld) 81.3 % Normal . [facility] Comment on above: Performed By: #### V BG #### Point of Care testing , Nucleated RBC/100 WBC (Bld) [Ratio] 0.2 % Normal 0-0.5 [facility] Comment on above: Performed By: #### V BG #### Point of Care testing , Platelet Estimate Normal Normal Normal [facility] Comment on above: Performed By: #### V BG #### Point of Care testing , Platelet mean volume (Bld) [Entitic vol] 7.1 fL Normal 6.6-10.1 [facility] Comment on above: Performed By: #### V BG #### Point of Care testing , Platelet Morphology Normal Normal Normal [facility] Comment on above: Result Comment: PERF ORMED BY: [facility] [address] [address] PATHOLOGIST INSTRU[employer] JORDAN RODRIGUEZ M.D. Performed By: #### V BG #### Point of Care testing , Platelets (Bld) [#/Vol] 388 10*3/uL Normal 150-450 [facility] Comment on above: Performed By: #### V BG #### Point of Care testing , Polychromasia Slight Normal [facility] Comment on above: Performed By: #### V BG #### Point of Care testing , RBC (Bld) [#/Vol] 3.85 10*6/uL Low 3.90-5.60 [facility] Comment on above: Performed By: #### V BG #### Point of Care testing , WBC (Bld) [#/Vol] 12.6 10*3/uL High 4.5-11.0 [facility] Comment on above: Performed By: #### V BG #### Point of Care testing , Serum or plasma calcium joel urement (mass/volume)on 08-25-2020 Calcium [Mass/Vol] 8.7 mg/dL 8.2-10.2 [facility] Serum or plasma chloride faraz surement (moles/volume)on 08-25-2020 Chloride [Moles/Vol] 99 mmol/L 95-114 [facility] Serum or plasma glucose joel urement (mass/volume)on 08-25-2020 Glucose [Mass/Vol] 113 mg/dL 70-100 [facility] Comment on above: ADA recommended refe rence rangeRandom Glucose Reference Range is dependent on time and content of last meal. Glucose of more than 200 mg/dL in a nonstressed, ambulatory subject supports the diagnosis of Diabetes Mellitus. Serum or plasma potassium me asurement (moles/volume)on 08-25-2020 Potassium [Moles/Vol] 4.6 mmol/L 3.5-5.1 [facility] Serum or plasma sodium measu rement (moles/volume)on 08-25-2020 Sodium [Moles/Vol] 135 mmol/L 136-146 [facility] Serum or plasma total carbon dioxide measurement (moles/volume)on 08-25-2020 CO2 [Moles/Vol] 26.2 mmol/L 22.0-30.0 [facility] Serum or plasma urea nitroge n measurement (mass/volume)on 08-25-2020 Urea nitrogen [Mass/Vol] 75 mg/dL 9-23 [facility] Diff and CBCon 08-24-2020 Anisocytosis Ql (Bld) Slight Normal [facility] Comment on above: Performed By: #### C OVID-19 LIAT, SOFIANEG #### [facility] [address] Band form neutrophils/100 WBC (Bld) 1 % Normal 0-5 [facility] Comment on above: Performed By: #### C OVID-19 LIAT, SOFIANEG #### [facility] [address] [place] [address] [place] Basophilic stippling LM Ql (Bld) Slight Normal [facility] Comment on above: Performed By: #### C OVID-19 LIAT, SOFIANEG #### [facility] [address] [place] [address] [place] Erythrocyte distribution width (RBC) [Ratio] 16.6 % High 12.0-14.8 [facility] Comment on above: Performed By: #### C OVID-19 LIAT, SOFIANEG #### [facility] [address] [place] [id number] [place] Hematocrit (Bld) [Volume fraction] 30.0 % Low 38.8-50.0 [facility] Comment on above: Performed By: #### C OVID-19 LIAT, SOFIANEG #### [address] Hemoglobin (Bld) [Mass/Vol] 10.1 g/dL Low 13.0-17.0 [facility] Comment on above: Performed By: #### C OVID-19 LIAT, SOFIANEG #### [address] Lymphocytes/100 WBC (Bld) 6 % Low 18-42 [facility] Comment on above: Performed By: #### C OVID-19 LIAT, SOFIANEG #### [address] MCH (RBC) [Entitic mass] 27.5 pg Normal 27.5-35.2 [facility] Comment on above: Performed By: #### C OVID-19 LIAT, SOFIANEG #### [address] MCV (RBC) [Entitic vol] 81.9 fL Low 83.5-101 [facility] Comment on above: Performed By: #### C OVID-19 LIAT, SOFIANEG #### [address] Mean Corpuscular HGB Conc 33.6 g/dL Normal 32.5-35.6 [facility] Comment on above: Performed By: #### C OVID-19 LIAT, SOFIANEG #### [address] Metamyelocytes 1 % High 0-0 [facility] Comment on above: Performed By: #### C OVID-19 LIAT, SOFIANEG #### [place] [address] [place] Monocytes/100 WBC (Bld) 4 % Normal 2-11 [facility] Comment on above: Performed By: #### C OVID-19 LIAT, SOFIANEG #### [address] Myelocytes 1 % High 0-0 [facility] Comment on above: Performed By: #### C OVID-19 LIAT, SOFIANEG #### [address] Nucleated RBC/100 WBC (Bld) [Ratio] 0.0 % Normal 0-0.5 [facility] Comment on above: Result Comment: PERF ORMED BY: [place] [address] PATHOLOGIST IN[employer] JORDAN RODRIGUEZ M.D. Performed By: #### C OVID-19 LIAT, SOFIANEG #### [address] Platelet Estimate Normal Normal Normal [facility] Comment on above: Performed By: #### C OVID-19 LIAT, SOFIANEG #### [address] Platelet mean volume (Bld) [Entitic vol] 7.0 fL Normal 6.6-10.1 [facility] Comment on above: Performed By: #### C OVID-19 LIAT, SOFIANEG #### [address] Platelet Morphology Normal Normal Normal [facility] Comment on above: Result Comment: PERF ORMED BY: [place] [address] PATHOLOGIST IN[employer] JORDAN RODRIGUEZ M.D. Performed By: #### C OVID-19 LIAT, SOFIANEG #### [place] [address] [place] Platelets (Bld) [#/Vol] 359 10*3/uL Normal 150-450 [facility] Comment on above: Performed By: #### C OVID-19 LIAT, SOFIANEG #### [address] Polychromasia Slight Normal [facility] Comment on above: Performed By: #### C OVID-19 LIAT, SOFIANEG #### [address] RBC (Bld) [#/Vol] 3.66 10*6/uL Low 3.90-5.60 [facility] Comment on above: Performed By: #### C OVID-19 LIAT SOFIANEG #### [facility] [address] [place] [address] [place] Rouleaux Slight Normal [facility] Comment on above: Performed By: #### C OVID-19 LIAT, SOFIANEG #### [facility] [address] Segmented neutrophils/100 WBC (Bld) 87 % High 50-70 [facility] Comment on above: Performed By: #### C OVID-19 LIAT, SOFIANEG #### [facility] [address] [place] [address] WBC (Bld) [#/Vol] 11.2 10*3/uL High 4.5-11.0 [facility] Comment on above: Performed By: #### C OVID-19 LIAT, SOFIANEG #### [facility] [address] [place] [address] ECG 12 lead ECGon 08-24-2020 ECG 12 lead ECG [facility] Main [place] [address] [place] [address] Electrocardiograph Report Signed Patient: Rashard Lyman MR#: [id number] : 1960 Acct:[id number] Age/Sex: 60 / M ADM Date: 08/18/20 Loc: Room: [address] [place] [address] Type: ADM IN Attending Dr: Gordon Ewing [...] MD Transcribed By: MUS Dictated By: Gautam Bazna MD 08/24/20 0743 Signed By: 08/24/20 1049 Normal [facility] Erythrocyte basophilic stipp ling detectionon 08-24-2020 Basophilic stippling LM Ql (Bld) Slight [facility] Glucose Poct Glucometerson 0 08-24-2020 Glucose [Mass/Vol] 129 mg/dL Normal [facility] Comment on above: Result Comment: [place] Glucose Reference Range is dependent on time and content of last meal. Glucose of more than 200 mg/dL in a nonstressed, ambulatory subject supports the diagnosis of Diabetes Mellitus. PERFORMED BY: [address] [place] [address] PATHOLOGIST IN[employer] JORDAN RODRIGUEZ M.D. Performed By: #### V BG #### Point of Care testing , Commemt1 Glu2: Cleaned Meter Normal [facility] Comment on above: Result Comment: PERF ORMED BY: [address] [place] [address] PATHOLOGIST INSTRUCTOR [employer] JORDAN RODRIGUEZ M.D. Performed By: #### V BG #### Point of Care testing , Glucose [Mass/Vol] 108 mg/dL Normal [facility] Comment on above: Result Comment: [place] Glucose Reference Range is dependent on time and content of last meal. Glucose of more than 200 mg/dL in a nonstressed, ambulatory subject supports the diagnosis of Diabetes Mellitus. Performed By: #### V BG #### Point of Care testing , Glucose [Mass/Vol] 60 mg/dL Off scale low [facility] Comment on above: Result Comment: Wallace om Glucose Reference Range is dependent on time and content of last meal. Glucose of more than 200 mg/dL in a nonstressed, ambulatory subject supports the diagnosis of Diabetes Mellitus. PERFORMED BY: [place] [id number] PATHOLOGIST INSTRUCTOR [employer] JORDAN RODRIGUEZ M.D. Performed By: #### V BG #### Point of Care testing , Glucose [Mass/Vol] 130 mg/dL Normal [facility] Comment on above: Result Comment: Wallace om Glucose Reference Range is dependent on time and content of last meal. Glucose of more than 200 mg/dL in a nonstressed, ambulatory subject supports the diagnosis of Diabetes Mellitus. PERFORMED BY: [place] [address] PATHOLOGIST INSTRUCTOR [employer] JORDAN RODRIGUEZ M.D. Performed By: #### V BG #### Point of Care testing , Glucose [Mass/Vol] 72 mg/dL Normal [facility] Comment on above: Result Comment: Wallace om Glucose Reference Range is dependent on time and content of last meal. Glucose of more than 200 mg/dL in a nonstressed, ambulatory subject supports the diagnosis of Diabetes Mellitus. PERFORMED BY: [place] [address] PATHOLOGIST INSTRUCTOR [employer] JORDAN RODRIGUEZ M.D. Performed By: #### C OVID-19 DELGADO JOSUE #### [address] Glucose [Mass/Vol] 96 mg/dL Normal [facility] Comment on above: Result Comment: Wallace om Glucose Reference Range is dependent on time and content of last meal. Glucose of more than 200 mg/dL in a nonstressed, ambulatory subject supports the diagnosis of Diabetes Mellitus. PERFORMED BY: [place] [id number] PATHOLOGIST INSTRUCTOR [employer] JORDAN RODRIGUEZ M.D. Performed By: #### C OVID-19 LIAT SOFIANEG #### [address] Laboratory - Hematology and Cell countson 08-24-2020 Band form neutrophils/100 WBC (Bld) 1 % 0-5 [facility] Lymphocytes/100 WBC Auto (Bl d)on 08-24-2020 Lymphocytes/100 WBC (Bld) 6 % 18-42 [facility] Metamyelocytes/100 WBC Manua l cnt (Bld)on 08-24-2020 Metamyelocytes/100 WBC (Bld) 1 % 0-0 [facility] Monocytes/100 WBC Manual cnt (Bld)on 08-24-2020 Monocytes/100 WBC (Bld) 4 % 2-11 [facility] Myelocytes/100 WBC Manual cn t (Bld)on 08-24-2020 Myelocytes/100 WBC (Bld) 1 % 0-0 [facility] No Panel Informationon 08-24 Rouleau Slight [facility] Renal Function Panelon 08-24 Albumin [Mass/Vol] 1.9 g/dL Low 3.2-5.5 [facility] Comment on above: Performed By: #### C OVID-19 LIAT, SOFIANEG #### [facility] [address] Calcium [Mass/Vol] 8.8 mg/dL Normal 8.2-10.2 [facility] Comment on above: Performed By: #### C OVID-19 LIAT, SOFIANEG #### [facility] [address] [place] [address] [place] Chloride [Moles/Vol] 99 mmol/L Normal 95-114 [facility] Comment on above: Performed By: #### C OVID-19 LIAT, SOFIANEG #### [facility] [facility] [address] [place] [address] [place] CO2 [Moles/Vol] 24.4 mmol/L Normal 22.0-30.0 [facility] Comment on above: Performed By: #### C OVID-19 LIAT, SOFIANEG #### [facility] [address] [place] [id number] [place] Creatinine [Mass/Vol] 4.21 mg/dL High 0.64-1.27 [facility] Comment on above: Performed By: #### C OVID-19 LIAT, SOFIANEG #### [facility] [address] [place] [id number] [place] Creatinine Clr Calc Pharmacy 30.71 [facility] Comment on above: Result Comment: PERF ORMED BY: [place] [address] PATHOLOGIST INSTRUCTOR [employer] JORDAN RODRIGUEZ M.D. Performed By: #### C OVID-19 LIAT, SOFIANEG #### [address] Estimated GFR ( Camilla 18 [facility] Comment on above: Result Comment: GFR estimated reference range: According to KDOQI guidelines, <60 ml/min/1.73m2 is sufficient to diagnose a patient with chronic kidney disease. Performed By: #### C OVID-19 LIAT, SOFIANEG #### [address] Estimated GFR (Non- Am 15 [facility] Comment on above: Performed By: #### C OVID-19 LIAT, SOFIANEG #### [address] Glucose [Mass/Vol] 79 mg/dL Normal 70-100 [facility] Comment on above: Result Comment: [place] Glucose Reference Range is dependent on time and content of last meal. Glucose of more than 200 mg/dL in a nonstressed, ambulatory subject supports the diagnosis of Diabetes Mellitus. ADA recommended reference range Performed By: #### C OVID-19 LIAT, SOFIANEG #### [facility] [address] [place] [address] Phosphate [Mass/Vol] 5.9 mg/dL High 2.5-4.6 [facility] Comment on above: Performed By: #### C OVID-19 LIAT, SOFIANEG #### [facility] [address] [place] [address] [place] Potassium [Moles/Vol] 4.2 mmol/L Normal 3.5-5.1 [facility] Comment on above: Performed By: #### C OVID-19 LIAT, SOFIANEG #### [address] Sodium [Moles/Vol] 134 mmol/L Low 136-146 [facility] Comment on above: Performed By: #### C OVID-19 LIAT, SOFIANEG #### [address] Urea nitrogen [Mass/Vol] 69 mg/dL High 9-23 [facility] Comment on above: Performed By: #### C OVID-19 LIAT, SOFIANEG #### [place] [address] [place] Segmented neutrophils/100 WB C Manual cnt (Bld)on 08-24-2020 Segmented neutrophils/100 WBC (Bld) 87 % 50-70 [facility] KILLIAN Antinuclear Antibodieson 08-23-2020 Antinuclear Abs, IFA Negative Normal . [facility] Comment on above: Result Comment: Nega tive <1:80 Borderline 1:80 Positive >1:80 Performed at: [facility] [address] [id number] Primer Boxer: Mata Brian PhD, Phone: [phone] PERFORMED BY: [place] [address] PATHOLOGIST INSTRUCTOR [employer] JORDAN RODRIGUEZ M.D. Performed By: #### P P #### [address] Complete Blood Count Auto Di ffon 08-23-2020 Basophils (Bld) [#/Vol] 0.0 10*3/uL Normal 0.0-0.2 [facility] Comment on above: Result Comment: PERF ORMED BY: [place] [address] PATHOLOGIST INSTRUCTOR [employer] JORDAN RODRIGUEZ M.D. Performed By: #### C OVID-19 LIAT, SOFIANEG #### [place] [address] [place] Basophils/100 WBC (Bld) 0.3 % Normal . [facility] Comment on above: Performed By: #### C OVID-19 LIAT, SOFIANEG #### [place] [address] [place] Eosinophils (Bld) [#/Vol] 0.0 10*3/uL Normal 0.0-0.45 [facility] Comment on above: Performed By: #### C OVID-19 LIAT, SOFIANEG #### [facility] [address] Eosinophils/100 WBC (Bld) 0.1 % Normal . [facility] Comment on above: Performed By: #### C OVID-19 LIAT, SOFIANEG #### [address] Erythrocyte distribution width (RBC) [Ratio] 16.3 % High 12.0-14.8 [facility] Comment on above: Performed By: #### C OVID-19 LIAT, SOFIANEG #### [address] Hematocrit (Bld) [Volume fraction] 29.4 % Low 38.8-50.0 [facility] Comment on above: Performed By: #### C OVID-19 LIAT, SOFIANEG #### [address] Hemoglobin (Bld) [Mass/Vol] 9.4 g/dL Low 13.0-17.0 [facility] Comment on above: Performed By: #### C OVID-19 LIAT, SOFIANEG #### [facility] [address] [place] [address] [place] Lymphocytes (Bld) [#/Vol] 0.5 10*3/uL Low 1.00-4.8 [facility] Comment on above: Performed By: #### C OVID-19 LIAT, SOFIANEG #### [facility] [address] [place] [address] [place] Lymphocytes/100 WBC (Bld) 4.1 % Normal . [facility] Comment on above: Performed By: #### C OVID-19 LIAT, SOFIANEG #### [facility] [address] [place] [address] MCH (RBC) [Entitic mass] 26.2 pg Low 27.5-35.2 [facility] Comment on above: Performed By: #### C OVID-19 LIAT, SOFIANEG #### [facility] [address] MCV (RBC) [Entitic vol] 82.4 fL Low 83.5-101 [facility] Comment on above: Performed By: #### C OVID-19 LIAT, SOFIANEG #### [facility] [address] Mean Corpuscular HGB Conc 31.8 g/dL Low 32.5-35.6 [facility] Comment on above: Performed By: #### C OVID-19 LIAT, SOFIANEG #### [facility] [address] Monocytes (Bld) [#/Vol] 0.6 10*3/uL Normal 0.0-0.8 [facility] Comment on above: Performed By: #### C OVID-19 LIAT, SOFIANEG #### [address] Monocytes/100 WBC (Bld) 4.9 % Normal . [facility] Comment on above: Performed By: #### C OVID-19 LIAT, SOFIANEG #### [address] Neutrophils (Bld) [#/Vol] 11.2 10*3/uL High 1.8-7.7 [facility] Comment on above: Performed By: #### C OVID-19 LIAT, SOFIANEG #### [facility] [address] [place] [address] [place] Neutrophils/100 WBC (Bld) 90.6 % Normal . [facility] Comment on above: Performed By: #### C OVID-19 LIAT, SOFIANEG #### [facility] [address] [place] [address] [place] Nucleated RBC/100 WBC (Bld) [Ratio] 0.2 % Normal 0-0.5 [facility] Comment on above: Performed By: #### C OVID-19 LIAT, SOFIANEG #### [facility] [address] Platelet mean volume (Bld) [Entitic vol] 8.0 fL Normal 6.6-10.1 [facility] Comment on above: Performed By: #### C OVID-19 LIAT, SOFIANEG #### [facility] [address] [place] [id number] [facility] Platelets (Bld) [#/Vol] 303 10*3/uL Normal 150-450 [facility] Comment on above: Performed By: #### C OVID-19 LIAT, SOFIANEG #### [facility] [address] RBC (Bld) [#/Vol] 3.57 10*6/uL Low 3.90-5.60 [facility] Comment on above: Performed By: #### C OVID-19 LIAT, SOFIANEG #### [facility] [address] WBC (Bld) [#/Vol] 12.4 10*3/uL High 4.5-11.0 [facility] Comment on above: Performed By: #### C OVID-19 LIAT, SOFIANEG #### [address] ECG 12 lead ECGon 08-23-2020 ECG 12 lead ECG [facility] [place] [address] [place] [address] Electrocardiograph Report Signed Patient: Rashard Lyman MR#: [id number] : 1960 Acct:[id number] Age/Sex: 60 / M ADM Date: 08/18/20 Loc: Room: [address] [place] [address] Type: ADM IN Attending Dr: Gordon Ewing [...] 08/23/20 0730 Signed By: 08/23/20 1047 Normal [facility] Glucose Poct Glucometerson 0 08-23-2020 Glucose [Mass/Vol] 160 mg/dL Normal [facility] Comment on above: Result Comment: [facility] Glucose Reference Range is dependent on time and content of last meal. Glucose of more than 200 mg/dL in a nonstressed, ambulatory subject supports the diagnosis of Diabetes Mellitus. PERFORMED BY: [place] [id number] PATHOLOGIST INSTRUCTOR [employer] JORDAN RODRIGUEZ M.D. Performed By: #### C OVID-19 BALJEET JOSUEEG #### [facility] [address] [place] [address] Glucose [Mass/Vol] 212 mg/dL Normal [facility] Comment on above: Result Comment: [facility] Glucose Reference Range is dependent on time and content of last meal. Glucose of more than 200 mg/dL in a nonstressed, ambulatory subject supports the diagnosis of Diabetes Mellitus. PERFORMED BY: [place] [address] PATHOLOGIST INSTRUCTOR [employer] JORDAN RODRIGUEZ M.D. Performed By: #### C OVID-19 LIAT SOFIANEG #### [facility] [address] [place] [address] Glucose [Mass/Vol] 159 mg/dL Normal [facility] Comment on above: Result Comment: [facility] Glucose Reference Range is dependent on time and content of last meal. Glucose of more than 200 mg/dL in a nonstressed, ambulatory subject supports the diagnosis of Diabetes Mellitus. PERFORMED BY: [place] [address] PATHOLOGIST INSTRUCTOR [employer] JORDAN RODRIGUEZ M.D. Performed By: #### C OVID-19 LIAT, SOFIANEG #### [facility] [address] [place], [place] [id number] [facility] Glucose [Mass/Vol] 73 mg/dL Normal [facility] Comment on above: Result Comment: [facility] Glucose Reference Range is dependent on time and content of last meal. Glucose of more than 200 mg/dL in a nonstressed, ambulatory subject supports the diagnosis of Diabetes Mellitus. PERFORMED BY: [place] [address] PATHOLOGIST INSTRUCTOR [employer] JORDAN RODRIGUEZ M.D. Performed By: #### C OVID-19 LIAT, SOFIANEG #### [facility] [address] [place] [address] [place] Commemt1 Glu2: Cleaned Meter [facility] Comment on above: Result Comment: PERF ORMED BY: [place] [address] PATHOLOGIST INSTRUCTOR [employer] JORDAN RODRIGUEZ M.D. Performed By: #### C OVID-19 LIAT, SOFIANEG #### [address] Glucose [Mass/Vol] 88 mg/dL Normal [facility] Comment on above: Result Comment: [facility] Glucose Reference Range is dependent on time and content of last meal. Glucose of more than 200 mg/dL in a nonstressed, ambulatory subject supports the diagnosis of Diabetes Mellitus. Performed By: #### C OVID-19 LIAT, SOFIANEG #### [facility] [address] [place] [address] Commemt1 Glu2: Cleaned Meter [facility] Comment on above: Result Comment: PERF ORMED BY: [place] [address] PATHOLOGIST INSTRUCTOR [employer] JORDAN RODRIGUEZ M.D. Performed By: #### C OVID-19 LIAT SOFIANEG #### [address] Glucose [Mass/Vol] 69 mg/dL [facility] Comment on above: Result Comment: [place] Glucose Reference Range is dependent on time and content of last meal. Glucose of more than 200 mg/dL in a nonstressed, ambulatory subject supports the diagnosis of Diabetes Mellitus. Performed By: #### C OVID-19 LIAT, SOFIANEG #### [address] Commemt1 [facility] Comment on above: Result Comment: Glu2 : Will Repeat Test Performed By: #### C OVID-19 LIAT SOFIANEG #### [address] Commemt2 WILL NOTIFY /JOANNE [facility] Comment on above: Performed By: #### C OVID-19 LIAT SOFIANEG #### [address] Commemt3 Cleaned Meter [facility] Comment on above: Result Comment: PERF ORMED BY: [place] [address] PATHOLOGIST INSTRUCTOR [employer] JORDAN RODRIGUEZ M.D. Performed By: #### C OVID-19 LIAT SOFIANEG #### [address] Glucose [Mass/Vol] 59 mg/dL Off scale low [facility] Comment on above: Result Comment: [place] om Glucose Reference Range is dependent on time and content of last meal. Glucose of more than 200 mg/dL in a nonstressed, ambulatory subject supports the diagnosis of Diabetes Mellitus. Performed By: #### C OVID-19 LIAT SOFIANEG #### [address] No Panel Informationon 08-23 Bedside Glucose #[address]/joanne [facility] Bedside Glucose #3 Comment Cleaned meter [facility] Renal Function Panelon 08-23 Albumin [Mass/Vol] 1.9 g/dL Low 3.2-5.5 [facility] Comment on above: Performed By: #### C OVID-19 LIAT, SOFIANEG #### [facility] [address] Calcium [Mass/Vol] 8.7 mg/dL Normal 8.2-10.2 [facility] Comment on above: Performed By: #### C OVID-19 LIAT, SOFIANEG #### [facility] [address] Chloride [Moles/Vol] 95 mmol/L Normal 95-114 [facility] Comment on above: Performed By: #### C OVID-19 LIAT, SOFIANEG #### [facility] [address] [place] [address] CO2 [Moles/Vol] 22.0 mmol/L Normal 22.0-30.0 [facility] Comment on above: Performed By: #### C OVID-19 LIAT, SOFIANEG #### [facility] [address] [place] [address] Creatinine [Mass/Vol] 4.79 mg/dL High 0.64-1.27 [facility] Comment on above: Performed By: #### C OVID-19 LIAT, SOFIANEG #### [facility] [address] [place] [address] [place] Creatinine Clr Calc Pharmacy 27.33 [facility] Comment on above: Result Comment: PERF ORMED BY: [place] [address] PATHOLOGIST INSTRUCTOR [employer] JORDAN RODRIGUEZ M.D. Performed By: #### C OVID-19 LIAT, SOFIANEG #### [facility] [address] [place] [address] Estimated GFR ( Camilla 15 Normal [facility] Comment on above: Result Comment: GFR estimated reference range: According to KDOQI guidelines, <60 ml/min/1.73m2 is sufficient to diagnose a patient with chronic kidney disease. Performed By: #### C OVID-19 LIAT, SOFIANEG #### [facility] [address] [place] [address] [place] Estimated GFR (Non- Am 13 Normal [facility] Comment on above: Performed By: #### C OVID-19 LIAT SOFIANEG #### [facility] [address] Glucose [Mass/Vol] 78 mg/dL Normal 70-100 [facility] Comment on above: Result Comment: [facility] Glucose Reference Range is dependent on time and content of last meal. Glucose of more than 200 mg/dL in a nonstressed, ambulatory subject supports the diagnosis of Diabetes Mellitus. ADA recommended reference range Performed By: #### C OVID-19 LIAT SOFIANEG #### [facility] [address] Phosphate [Mass/Vol] 7.5 mg/dL High 2.5-4.6 [facility] Comment on above: Performed By: #### C OVID-19 LIAT SOFIANEG #### [facility] [address] Potassium [Moles/Vol] 4.4 mmol/L Normal 3.5-5.1 [facility] Comment on above: Performed By: #### C OVID-19 LIAT SOFIANEG #### [facility] [address] [place] [address] Sodium [Moles/Vol] 131 mmol/L Low 136-146 [facility] Comment on above: Performed By: #### C OVID-19 LIAT SOFIANEG #### [facility] [address] [place] [address] [place] Urea nitrogen [Mass/Vol] 63 mg/dL High 9-23 [facility] Comment on above: Performed By: #### C OVID-19 LIAT SOFIANEG #### [facility] [address] [place] [address] [place] Rheumatoid Factoron 08-24-19 21 Rheumatoid Factor 20.6 High 0.0-13.9 [facility] Comment on above: Result Comment: Perf ormed at: [place] - [facility] [address] [id number] Primer Boxer: Mata Brian PhD, Phone: [phone] Performed By: #### P P #### [address] Serum nuclear antibody titer on 08-23-2020 Nuclear Ab (S) [Titer] Negative [facility] Comment on above: Negative <1:80 Borde rline 1:80 Positive >1:80Performed at: [place] [facility] [address] [id number] Director: Mata Brian PhD, Phone: [phone] Serum or plasma rheumatoid f actor measurement (units/volume)on 08-23-2020 Rheumatoid factor Qn 20.6 [IU]/mL [facility] Comment on above: Performed at: - [facility] [address] [id number] Director: Mata Brian PhD, Phone: [phone] Basic Metabolic Panelon 07-29 Calcium [Mass/Vol] 8.6 mg/dL Normal 8.2-10.2 [facility] Comment on above: Performed By: #### C MP, CBC, MG, TROP, BNP #### [address] Chloride [Moles/Vol] 94 mmol/L Low 95-114 [facility] Comment on above: Performed By: #### C MP, CBC, MG, TROP, BNP #### [address] CO2 [Moles/Vol] 21.4 mmol/L Low 22.0-30.0 [facility] Comment on above: Performed By: #### C MP, CBC, MG, TROP, BNP #### [facility] [address] Creatinine [Mass/Vol] 4.84 mg/dL High 0.64-1.27 [facility] Comment on above: Performed By: #### C MP, CBC, MG, TROP, BNP #### [place] [address] [place] Creatinine Clr Calc Pharmacy 27.02 [facility] Comment on above: Result Comment: PERF ORMED BY: [place] [address] PATHOLOGIST INSTRUCTOR [employer] JORDAN RODRIGUEZ M.D. Performed By: #### C MP, CBC, MG, TROP, BNP #### [address] Estimated GFR ( Camilla 15 [facility] Comment on above: Result Comment: GFR estimated reference range: According to KDOQI guidelines, <60 ml/min/1.73m2 is sufficient to diagnose a patient with chronic kidney disease. Performed By: #### C MP, CBC, MG, TROP, BNP #### [address] Estimated GFR (Non- Am 12 [facility] Comment on above: Performed By: #### C MP, CBC, MG, TROP, BNP #### [address] Glucose [Mass/Vol] 154 mg/dL High 70-100 [facility] Comment on above: Result Comment: [place] om Glucose Reference Range is dependent on time and content of last meal. Glucose of more than 200 mg/dL in a nonstressed, ambulatory subject supports the diagnosis of Diabetes Mellitus. ADA recommended reference range Performed By: #### C MP, CBC, MG, TROP, BNP #### [address] Potassium [Moles/Vol] 4.9 mmol/L Normal 3.5-5.1 [facility] Comment on above: Performed By: #### C MP, CBC, MG, TROP, BNP #### [address] Sodium [Moles/Vol] 129 mmol/L Low 136-146 [facility] Comment on above: Performed By: #### C MP, CBC, MG, TROP, BNP #### [address] Urea nitrogen [Mass/Vol] 54 mg/dL High 9-23 [facility] Comment on above: Performed By: #### C MP, CBC, MG, TROP, BNP #### [facility] [address] biopsyon 08-22-2020 Transferrin [Mass/Vol] 104 mg/dL 180-380 [facility] Complete Blood Count Auto Di ffon 08-22-2020 Basophils (Bld) [#/Vol] 0.0 10*3/uL Normal 0.0-0.2 [facility] Comment on above: Result Comment: PERF ORMED BY: [place] [address] PATHOLOGIST INSTRUCTOR [employer] JORDAN RODRIGUEZ M.D. Performed By: #### C MP, CBC, MG, TROP, BNP #### [address] Basophils/100 WBC (Bld) 0.2 % Normal . [facility] Comment on above: Performed By: #### C MP, CBC, MG, TROP, BNP #### [address] Eosinophils (Bld) [#/Vol] 0.0 10*3/uL Normal 0.0-0.45 [facility] Comment on above: Performed By: #### C MP, CBC, MG, TROP, BNP #### [address] Eosinophils/100 WBC (Bld) 0.1 % Normal . [facility] Comment on above: Performed By: #### C MP, CBC, MG, TROP, BNP #### [address] Erythrocyte distribution width (RBC) [Ratio] 16.4 % High 12.0-14.8 [facility] Comment on above: Performed By: #### C MP, CBC, MG, TROP, BNP #### [address] Hematocrit (Bld) [Volume fraction] 30.4 % Low 38.8-50.0 [facility] Comment on above: Performed By: #### C MP, CBC, MG, TROP, BNP #### [address] Hemoglobin (Bld) [Mass/Vol] 9.9 g/dL Low 13.0-17.0 [facility] Comment on above: Performed By: #### C MP, CBC, MG, TROP, BNP #### [address] Lymphocytes (Bld) [#/Vol] 0.6 10*3/uL Low 1.00-4.8 [facility] Comment on above: Performed By: #### C MP, CBC, MG, TROP, BNP #### [address] Lymphocytes/100 WBC (Bld) 5.6 % Normal . [facility] Comment on above: Performed By: #### C MP, CBC, MG, TROP, BNP #### [address] MCH (RBC) [Entitic mass] 27.1 pg Low 27.5-35.2 [facility] Comment on above: Performed By: #### C MP, CBC, MG, TROP, BNP #### [address] MCV (RBC) [Entitic vol] 83.4 fL Low 83.5-101 [facility] Comment on above: Performed By: #### C MP, CBC, MG, TROP, BNP #### [address] Mean Corpuscular HGB Conc 32.5 g/dL Normal 32.5-35.6 [facility] Comment on above: Performed By: #### C MP, CBC, MG, TROP, BNP #### [address] Monocytes (Bld) [#/Vol] 0.8 10*3/uL Normal 0.0-0.8 [facility] Comment on above: Performed By: #### C MP, CBC, MG, TROP, BNP #### [address] Monocytes/100 WBC (Bld) 7.7 % Normal . [facility] Comment on above: Performed By: #### C MP, CBC, MG, TROP, BNP #### [address] Neutrophils (Bld) [#/Vol] 9.5 10*3/uL High 1.8-7.7 [facility] Comment on above: Performed By: #### C MP, CBC, MG, TROP, BNP #### [address] Neutrophils/100 WBC (Bld) 86.4 % Normal . [facility] Comment on above: Performed By: #### C MP, CBC, MG, TROP, BNP #### [place] [address] [place] Nucleated RBC/100 WBC (Bld) [Ratio] 0.0 % Normal 0-0.5 [facility] Comment on above: Performed By: #### C MP, CBC, MG, TROP, BNP #### [address] Platelet mean volume (Bld) [Entitic vol] 7.8 fL Normal 6.6-10.1 [facility] Comment on above: Performed By: #### C MP, CBC, MG, TROP, BNP #### [place] [address] [place] Platelets (Bld) [#/Vol] 227 10*3/uL Normal 150-450 [facility] Comment on above: Performed By: #### C MP, CBC, MG, TROP, BNP #### [place] [address] [place] RBC (Bld) [#/Vol] 3.64 10*6/uL Low 3.90-5.60 [facility] Comment on above: Performed By: #### C MP, CBC, MG, TROP, BNP #### [place] [address] [place] WBC (Bld) [#/Vol] 11.0 10*3/uL Normal 4.5-11.0 [facility] Comment on above: Performed By: #### C MP, CBC, MG, TROP, BNP #### [place] [id number] [facility] ECG 12 lead ECGon 08-22-2020 ECG 12 lead ECG [facility] [place] [address] Electrocardiograph Report Signed Patient: Rashard Lyman MR#: [id number] : 1960 Acct:[id number] Age/Sex: 60 / M ADM Date: 08/18/20 Loc: Room: [address] [place] [address] Type: ADM IN Attending Dr: Gordon Ewing [...] 08/22/20 1221 Signed By: 08/23/20 1047 Normal [facility] ECG 12 lead ECG [facility] [place] [address] Electrocardiograph Report Signed Patient: Rashard Lyman MR#: [id number] : 1960 Acct:[id number] Age/Sex: 60 / M ADM Date: 08/18/20 Loc: Room: [address] [place] [address] Type: ADM IN Attending Dr: Gordon Ewing [...] 08/22/20 0751 Signed By: 08/22/20 1201 Normal [facility] echo transthoracicon [facility] echo transthoracic [place] [address] Echocardiogram Signed Patient: Rashard Lyman MR#: [id number] : 1960 Acct:[id number] Age/Sex: 60 / M ADM Date: 08/18/20 Loc: Room: [address] [place] [address] Type: ADM IN Attending Dr: Gordon Ewing MD Ordering Provider: Gautam Bazan MD Date of Service: 08/22/20 [facility] echo transthoracic: Pericarditis Copies to: Gautam Bazan [...] 08/22/20 1016 Signed By: 08/22/20 1138 Normal [facility] FE PROon 08-22-2020 % Iron Saturation 11.0 % Low 20-50 [facility] Comment on above: Performed By: #### C MP, CBC, MG, TROP, BNP #### [address] Ferritin [Mass/Vol] 334.8 ng/mL Normal 23.9-336.2 [facility] Comment on above: Result Comment: PERF ORMED BY: [facility] [address] [place] [address] PATHOLOGIST [employer] JORDAN RODRIGUEZ M.D. Performed By: #### C MP, CBC, MG, TROP, BNP #### [facility] [address] Iron [Mass/Vol] 17 ug/dL Low 40-160 [facility] Comment on above: Performed By: #### C MP, CBC, MG, TROP, BNP #### [facility] [address] Total Iron Binding Capacity 146 ug/dL Low 255-450 [facility] Comment on above: Performed By: #### C MP, CBC, MG, TROP, BNP #### [facility] [address] Transferrin [Mass/Vol] 104 mg/dL Low 180-380 [facility] Comment on above: Performed By: #### C MP, CBC, MG, TROP, BNP #### [facility] [address] Ferritin [Mass/volume] in Se rum or Plasmaon 08-22-2020 Ferritin [Mass/Vol] 334.8 ng/mL 23.9-336.2 [facility] Glucose Poct Glucometerson 0 08-22-2020 Commemt1 Glu2: Cleaned Meter Normal [facility] Comment on above: Result Comment: PERF ORMED BY: [facility] [address] [place] [address] PATHOLOGIST INSTRU[employer] JORDAN RODRIGUEZ M.D. Performed By: #### C OVID-19 LIAT, SOFIANEG #### [facility] [address] [place] [address] [place] Glucose [Mass/Vol] 81 mg/dL Normal [facility] Comment on above: Result Comment: [place] Glucose Reference Range is dependent on time and content of last meal. Glucose of more than 200 mg/dL in a nonstressed, ambulatory subject supports the diagnosis of Diabetes Mellitus. Performed By: #### C OVID-19 LIAT, SOFIANEG #### [facility] [address] Glucose [Mass/Vol] 106 mg/dL Normal [facility] Comment on above: Result Comment: [place] om Glucose Reference Range is dependent on time and content of last meal. Glucose of more than 200 mg/dL in a nonstressed, ambulatory subject supports the diagnosis of Diabetes Mellitus. PERFORMED BY: [place] [address] PATHOLOGIST IN[employer] JORDAN RODRIGUEZ M.D. Performed By: #### C OVID-19 LIAT, SOFIANEG #### [address] Glucose [Mass/Vol] 158 mg/dL Normal [facility] Comment on above: Result Comment: [place] om Glucose Reference Range is dependent on time and content of last meal. Glucose of more than 200 mg/dL in a nonstressed, ambulatory subject supports the diagnosis of Diabetes Mellitus. PERFORMED BY: [place] [id number] PATHOLOGIST IN[employer] JORDAN RODRIGUEZ M.D. Performed By: #### C OVID-19 LIAT, SOFIANEG #### [address] Glucose [Mass/Vol] 138 mg/dL Normal [facility] Comment on above: Result Comment: [place] om Glucose Reference Range is dependent on time and content of last meal. Glucose of more than 200 mg/dL in a nonstressed, ambulatory subject supports the diagnosis of Diabetes Mellitus. PERFORMED BY: [place] [address] PATHOLOGIST INSTRUCTOR [employer] JORDAN RODRIGUEZ M.D. Performed By: #### C MP, CBC, MG, TROP, BNP #### [facility] [address] [place] [address] Glucose [Mass/Vol] 177 mg/dL Normal [facility] Comment on above: Result Comment: [place] om Glucose Reference Range is dependent on time and content of last meal. Glucose of more than 200 mg/dL in a nonstressed, ambulatory subject supports the diagnosis of Diabetes Mellitus. PERFORMED BY: [place] [address] PATHOLOGIST INSTRUCTOR [employer] JORDAN RODRIGUEZ M.D. Performed By: #### C MP, CBC, MG, TROP, BNP #### [facility] [address] [place] [address] [place] Iron [Mass/volume] in Serum or Plasmaon 08-22-2020 Iron [Mass/Vol] 17 ug/dL 40-160 [facility] Iron binding capacity [Mass/ volume] in Serum or Plasmaon 08-22-2020 Iron binding capacity [Mass/Vol] 146 ug/dL 255-450 [facility] Iron saturation [Mass Fracti on] in Serum or Plasmaon 08-22-2020 Iron saturation [Mass fraction] 11.0 % 20-50 [facility] Basic Metabolic Panelon 07-29 Calcium [Mass/Vol] 8.8 mg/dL Normal 8.2-10.2 [facility] Comment on above: Performed By: #### C MP, CBC, MG, TROP, BNP #### [facility] [address] [place] [address] [place] Chloride [Moles/Vol] 95 mmol/L Normal 95-114 [facility] Comment on above: Performed By: #### C MP, CBC, MG, TROP, BNP #### [facility] [address] [place] [address] [place] CO2 [Moles/Vol] 24.4 mmol/L Normal 22.0-30.0 [facility] Comment on above: Performed By: #### C MP, CBC, MG, TROP, BNP #### [facility] [address] [place] [address] [place] Creatinine [Mass/Vol] 4.31 mg/dL High 0.64-1.27 [facility] Comment on above: Performed By: #### C MP, CBC, MG, TROP, BNP #### [facility] [address] [place] [address] [place] Creatinine Clr Calc Pharmacy 30.19 Normal [facility] Comment on above: Result Comment: PERF ORMED BY: [place] [address] PATHOLOGIST IN[employer] JORDAN RODRIGUEZ M.D. Performed By: #### C MP, CBC, MG, TROP, BNP #### [address] Estimated GFR ( Camilla 17 [facility] Comment on above: Result Comment: GFR estimated reference range: According to KDOQI guidelines, <60 ml/min/1.73m2 is sufficient to diagnose a patient with chronic kidney disease. Performed By: #### C MP, CBC, MG, TROP, BNP #### [address] Estimated GFR (Non- Am 14 [facility] Comment on above: Performed By: #### C MP, CBC, MG, TROP, BNP #### [address] Glucose [Mass/Vol] 206 mg/dL High 70-100 [facility] Comment on above: Result Comment: [place] om Glucose Reference Range is dependent on time and content of last meal. Glucose of more than 200 mg/dL in a nonstressed, ambulatory subject supports the diagnosis of Diabetes Mellitus. ADA recommended reference range Performed By: #### C MP, CBC, MG, TROP, BNP #### [address] Potassium [Moles/Vol] 4.3 mmol/L Normal 3.5-5.1 [facility] Comment on above: Performed By: #### C MP, CBC, MG, TROP, BNP #### [address] Sodium [Moles/Vol] 131 mmol/L Low 136-146 [facility] Comment on above: Performed By: #### C MP, CBC, MG, TROP, BNP #### [address] Urea nitrogen [Mass/Vol] 44 mg/dL High 9-23 [facility] Comment on above: Performed By: #### C MP, CBC, MG, TROP, BNP #### [facility] [address] [place] [id number] [place] Creatine Kinaseon 08-21-2020 CK [Catalytic activity/Vol] 45 U/L Normal [facility] Comment on above: Performed By: #### C MP, CBC, MG, TROP, BNP #### [facility] [address] [place] [address] [place] Creatine kinase [Enzymatic a ctivity/volume] in Serum or Plasmaon 08-21-2020 CK [Catalytic activity/Vol] 45 U/L [facility] Creatinine Kinase MBon 08-21 CK.MB [Mass/Vol] 2.3 ng/mL Normal 0.6-6.3 [facility] Comment on above: Performed By: #### C MP, CBC, MG, TROP, BNP #### [facility] [address] CKMB Relative Index 5.1 % High 0.00-2.50 [facility] Comment on above: Performed By: #### C MP, CBC, MG, TROP, BNP #### [facility] [address] ECG 12 lead ECGon 08-21-2020 ECG 12 lead ECG [facility] Main [place] [address] [place] [address] Electrocardiograph Report Signed Patient: Rashard Lyman MR#: [id number] : 1960 Acct:[id number] Age/Sex: 60 / M ADM Date: 08/18/20 Loc: Room: [address] [place] [address] Type: ADM IN Attending Dr: Eugene Morel [...] Ochoa DO 08/21/20 0956 Signed By: 08/21/202008 [facility] ECG 12 [place] [address] Electrocardiograph Report Signed Patient: Rashard Lyman MR#: [id number] : 1960 Acct:[id number] Age/Sex: 60 / M ADM Date: 08/18/20 Loc: Room: [address] [place] [address] Type: ADM IN Attending Dr: Eugene Morel [...] Ochoa DO 08/21/20 0828 Signed By: 08/21/202029 [facility] ECG 12 lead ECG [facility] Main [place] [id number] Electrocardiograph Report Signed Patient: Rashard Lyman MR#: [id number] : 1960 Acct:[id number] Age/Sex: 60 / M ADM Date: 08/18/20 Loc: Room: [address] [place] [address] Type: ADM IN Attending Dr: Eugene Morel [...] Nir Ochoa DO 08/21/20615 Signed By: 08/21/202053 [facility] Glucose Poct Glucometerson 0 08-21-2020 Glucose [Mass/Vol] 210 mg/dL [facility] Comment on above: Result Comment: [place] Glucose Reference Range is dependent on time and content of last meal. Glucose of more than 200 mg/dL in a nonstressed, ambulatory subject supports the diagnosis of Diabetes Mellitus. PERFORMED BY: [place] [address] PATHOLOGIST IN[employer]CTOR [employer] JORDAN RODRIGUEZ M.D. Performed By: #### C MP, CBC, MG, TROP, BNP #### [address] Commemt1 Glu2: Cleaned Meter [facility] Comment on above: Result Comment: PERF ORMED BY: [place] [address] PATHOLOGIST INSTRUCTOR [employer] JORDAN RODRIGUEZ M.D. Performed By: #### C MP, CBC, MG, TROP, BNP #### [address] Glucose [Mass/Vol] 136 mg/dL Normal [facility] Comment on above: Result Comment: [place] om Glucose Reference Range is dependent on time and content of last meal. Glucose of more than 200 mg/dL in a nonstressed, ambulatory subject supports the diagnosis of Diabetes Mellitus. Performed By: #### C MP, CBC, MG, TROP, BNP #### [address] Commemt1 Glu2: Cleaned Meter [facility] Comment on above: Result Comment: PERF ORMED BY: [place] [address] PATHOLOGIST INSTRUCTOR [employer] JORDAN RODRIGUEZ M.D. Performed By: #### C MP, CBC, MG, TROP, BNP #### [address] Glucose [Mass/Vol] 198 mg/dL Normal [facility] Comment on above: Result Comment: [place] om Glucose Reference Range is dependent on time and content of last meal. Glucose of more than 200 mg/dL in a nonstressed, ambulatory subject supports the diagnosis of Diabetes Mellitus. Performed By: #### C MP, CBC, MG, TROP, BNP #### [address] Commemt1 Glu2: Cleaned Meter [facility] Comment on above: Result Comment: PERF ORMED BY: [place] [address] PATHOLOGIST INSTRUCTOR [employer] JORDAN RODRIGUEZ M.D. Performed By: #### C MP, CBC, MG, TROP, BNP #### [address] Glucose [Mass/Vol] 221 mg/dL Normal [facility] Comment on above: Result Comment: [place] om Glucose Reference Range is dependent on time and content of last meal. Glucose of more than 200 mg/dL in a nonstressed, ambulatory subject supports the diagnosis of Diabetes Mellitus. Performed By: #### C MP, CBC, MG, TROP, BNP #### [address] Glucose [Mass/Vol] 210 mg/dL Normal [facility] Comment on above: Result Comment: [facility] Glucose Reference Range is dependent on time and content of last meal. Glucose of more than 200 mg/dL in a nonstressed, ambulatory subject supports the diagnosis of Diabetes Mellitus. PERFORMED BY: [place] [address] PATHOLOGIST INSTRU[employer] JORDAN RODRIGUEZ M.D. Performed By: #### C MP, CBC, MG, TROP, BNP #### [address] No Panel Informationon 08-21 Dohle Bodies Slight [facility] Scan and CBCon 08-21-2020 Anisocytosis Ql (Bld) Slight Normal [facility] Comment on above: Performed By: #### C MP, CBC, MG, TROP, BNP #### [address] Basophils (Bld) [#/Vol] 0.0 10*3/uL Normal 0.0-0.2 [facility] Comment on above: Performed By: #### C MP, CBC, MG, TROP, BNP #### [address] Basophils/100 WBC (Bld) 0.3 % Normal . [facility] Comment on above: Performed By: #### C MP, CBC, MG, TROP, BNP #### [address] Dohle Bodies Slight Normal [facility] Comment on above: Performed By: #### C MP, CBC, MG, TROP, BNP #### [address] Eosinophils (Bld) [#/Vol] 0.5 10*3/uL High 0.0-0.45 [facility] Comment on above: Performed By: #### C MP, CBC, MG, TROP, BNP #### [address] Eosinophils/100 WBC (Bld) 3.2 % Normal . [facility] Comment on above: Performed By: #### C MP, CBC, MG, TROP, BNP #### [address] Erythrocyte distribution width (RBC) [Ratio] 16.6 % High 12.0-14.8 [facility] Comment on above: Performed By: #### C MP, CBC, MG, TROP, BNP #### [address] Hematocrit (Bld) [Volume fraction] 31.8 % Low 38.8-50.0 [facility] Comment on above: Performed By: #### C MP, CBC, MG, TROP, BNP #### [address] Hemoglobin (Bld) [Mass/Vol] 10.3 g/dL Low 13.0-17.0 [facility] Comment on above: Performed By: #### C MP, CBC, MG, TROP, BNP #### [address] Lymphocytes (Bld) [#/Vol] 1.2 10*3/uL Normal 1.00-4.8 [facility] Comment on above: Performed By: #### C MP, CBC, MG, TROP, BNP #### [address] Lymphocytes/100 WBC (Bld) 8.1 % Normal . [facility] Comment on above: Performed By: #### C MP, CBC, MG, TROP, BNP #### [address] MCH (RBC) [Entitic mass] 26.8 pg Low 27.5-35.2 [facility] Comment on above: Performed By: #### C MP, CBC, MG, TROP, BNP #### [address] MCV (RBC) [Entitic vol] 83.1 fL Low 83.5-101 [facility] Comment on above: Performed By: #### C MP, CBC, MG, TROP, BNP #### [address] Mean Corpuscular HGB Conc 32.3 g/dL Low 32.5-35.6 [facility] Comment on above: Performed By: #### C MP, CBC, MG, TROP, BNP #### [address] Monocytes (Bld) [#/Vol] 1.7 10*3/uL High 0.0-0.8 [facility] Comment on above: Performed By: #### C MP, CBC, MG, TROP, BNP #### [address] Monocytes/100 WBC (Bld) 11.4 % Normal . [facility] Comment on above: Performed By: #### C MP, CBC, MG, TROP, BNP #### [address] Neutrophils (Bld) [#/Vol] 11.2 10*3/uL High 1.8-7.7 [facility] Comment on above: Performed By: #### C MP, CBC, MG, TROP, BNP #### [address] Neutrophils/100 WBC (Bld) 77.0 % Normal . [facility] Comment on above: Performed By: #### C MP, CBC, MG, TROP, BNP #### [place] [address] [place] Nucleated RBC/100 WBC (Bld) [Ratio] 0.1 % Normal 0-0.5 [facility] Comment on above: Performed By: #### C MP, CBC, MG, TROP, BNP #### [address] Platelet Estimate Normal Normal Normal [facility] Comment on above: Performed By: #### C MP, CBC, MG, TROP, BNP #### [address] Platelet mean volume (Bld) [Entitic vol] 7.8 fL Normal 6.6-10.1 [facility] Comment on above: Performed By: #### C MP, CBC, MG, TROP, BNP #### [address] Platelet Morphology Normal Normal Normal [facility] Comment on above: Result Comment: PERF ORMED BY: [place] [address] PATHOLOGIST INSTRU[employer] JORDAN RODRIGUEZ M.D. Performed By: #### C MP, CBC, MG, TROP, BNP #### [address] Platelets (Bld) [#/Vol] 265 10*3/uL Normal 150-450 [facility] Comment on above: Performed By: #### C MP, CBC, MG, TROP, BNP #### [address] RBC (Bld) [#/Vol] 3.83 10*6/uL Low 3.90-5.60 [facility] Comment on above: Performed By: #### C MP, CBC, MG, TROP, BNP #### [address] WBC (Bld) [#/Vol] 14.6 10*3/uL High 4.5-11.0 [facility] Comment on above: Performed By: #### C MP, CBC, MG, TROP, BNP #### [address] Serum or plasma cardiac trop onin I measurement (mass/volume)on 08-21-2020 Troponin I.cardiac [Mass/Vol] ng/mL 0-0.02 [facility] Comment on above: HÉCTOR [place] Cut off value > or equal to 0.03 ng/mL in conjunction with clinical conditions of myocardial infarction.(www.escardio.org/guidelines) Serum or plasma creatine kin ase MB (CKMB)/total creatine kinase (CK) ratio by calculaon 08-21-2020 CK.MB Calc [Catalytic fraction] 5.1 % 0.00-2.50 [facility] Serum or plasma creatine kin ase MB measurement (mass/volume)on 08-21-2020 CK.MB [Mass/Vol] 2.3 ng/mL 0.6-6.3 [facility] Troponin I(TnI)on 08-21-2020 Troponin I.cardiac [Mass/Vol] ng/mL Normal 0-0.02 [facility] Comment on above: Result Comment: HÉCTOR [place] Cut off value > or equal to 0.03 ng/mL in conjunction with clinical conditions of myocardial infarction. (www.escardio.org/guidelines) PERFORMED BY: [place] [address] PATHOLOGIST INSTRU[employer] JORDAN RODRIGUEZ M.D. Performed By: #### C MP, CBC, MG, TROP, BNP #### [address] Troponin I.cardiac [Mass/Vol] ng/mL Normal 0-0.02 [facility] Comment on above: Result Comment: H[place] Cut off value > or equal to 0.03 ng/mL in conjunction with clinical conditions of myocardial infarction. (www.escardio.org/guidelines) PERFORMED BY: [place] [address] PATHOLOGIST INSTRUCTOR [employer] JORDAN RODRIGUEZ M.D. Performed By: #### C MP, CBC, MG, TROP, BNP #### [address] Basic Metabolic Panelon 07-29 Calcium [Mass/Vol] 8.4 mg/dL Normal 8.2-10.2 [facility] Comment on above: Performed By: #### C MP, CBC, MG, TROP, BNP #### [address] Chloride [Moles/Vol] 99 mmol/L Normal 95-114 [facility] Comment on above: Performed By: #### C MP, CBC, MG, TROP, BNP #### [facility] [address] CO2 [Moles/Vol] 25.0 mmol/L Normal 22.0-30.0 [facility] Comment on above: Performed By: #### C MP, CBC, MG, TROP, BNP #### [facility] [address] Creatinine [Mass/Vol] 3.26 mg/dL High 0.64-1.27 [facility] Comment on above: Performed By: #### C MP, CBC, MG, TROP, BNP #### [address] Creatinine Clr Calc Pharmacy 39.92 [facility] Comment on above: Result Comment: PERF ORMED BY: [place] [address] PATHOLOGIST IN[employer] JORDAN RODRIGUEZ M.D. Performed By: #### C MP, CBC, MG, TROP, BNP #### [address] Estimated GFR ( Camilla 24 [facility] Comment on above: Result Comment: GFR estimated reference range: According to KDOQI guidelines, <60 ml/min/1.73m2 is sufficient to diagnose a patient with chronic kidney disease. Performed By: #### C MP, CBC, MG, TROP, BNP #### [address] Estimated GFR (Non- Am 19 [facility] Comment on above: Performed By: #### C MP, CBC, MG, TROP, BNP #### [address] Glucose [Mass/Vol] 205 mg/dL High 70-100 [facility] Comment on above: Result Comment: [place] om Glucose Reference Range is dependent on time and content of last meal. Glucose of more than 200 mg/dL in a nonstressed, ambulatory subject supports the diagnosis of Diabetes Mellitus. ADA recommended reference range Performed By: #### C MP, CBC, MG, TROP, BNP #### [facility] [address] Potassium [Moles/Vol] 3.5 mmol/L Normal 3.5-5.1 [facility] Comment on above: Performed By: #### C MP, CBC, MG, TROP, BNP #### [facility] [address] Sodium [Moles/Vol] 131 mmol/L Low 136-146 [facility] Comment on above: Performed By: #### C MP, CBC, MG, TROP, BNP #### [address] Urea nitrogen [Mass/Vol] 35 mg/dL High 9- [facility] Comment on above: Performed By: #### C MP, CBC, MG, TROP, BNP #### [address] C-Reactive Proteinon 021 C-Reactive Protein 19.4 mg/dL High 0.0-1.0 [facility] Comment on above: Result Comment: PERF ORMED BY: [place] [address] PATHOLOGIST IN[employer] JORDAN RODRIGUEZ M.D. Performed By: #### C MP, CBC, MG, TROP, BNP #### [address] Erythrocyte Sedimentation Ra donato 08-20-2020 ESR (Bld) [Velocity] 108 mm/h High 0- [facility] Comment on above: Result Comment: PERF ORMED BY: [place] [address] PATHOLOGIST IN[employer] JORDAN RODRIGUEZ M.D. Performed By: #### C MP, CBC, MG, TROP, BNP #### [address] Erythrocyte sedimentation ra te by Photometric methodon 08-20-2020 ESR Photometric method (Bld) [Velocity] 108 mm/hr 0- [facility] Glucose Poct Glucometerson 0 08-20-2020 Glucose [Mass/Vol] 195 mg/dL Normal [facility] Comment on above: Result Comment: [place] om Glucose Reference Range is dependent on time and content of last meal. Glucose of more than 200 mg/dL in a nonstressed, ambulatory subject supports the diagnosis of Diabetes Mellitus. PERFORMED BY: [place] [address] PATHOLOGIST INSTRUCTOR [employer] JORDAN RODRIGUEZ M.D. Performed By: #### C MP, CBC, MG, TROP, BNP #### [address] Glucose [Mass/Vol] 171 mg/dL Normal [facility] Comment on above: Result Comment: [place] om Glucose Reference Range is dependent on time and content of last meal. Glucose of more than 200 mg/dL in a nonstressed, ambulatory subject supports the diagnosis of Diabetes Mellitus. PERFORMED BY: [place] [address] PATHOLOGIST INSTRUCTOR [employer] JORDAN RODRIGUEZ M.D. Performed By: #### C MP, CBC, MG, TROP, BNP #### [address] Glucose [Mass/Vol] 246 mg/dL Normal [facility] Comment on above: Result Comment: [place] om Glucose Reference Range is dependent on time and content of last meal. Glucose of more than 200 mg/dL in a nonstressed, ambulatory subject supports the diagnosis of Diabetes Mellitus. PERFORMED BY: [place] [address] PATHOLOGIST INSTRU[employer] JORDAN RODRIGUEZ M.D. Performed By: #### C MP, CBC, MG, TROP, BNP #### [facility] [address] [place] [address] [place] Glucose [Mass/Vol] 274 mg/dL Normal [facility] Comment on above: Result Comment: [place] om Glucose Reference Range is dependent on time and content of last meal. Glucose of more than 200 mg/dL in a nonstressed, ambulatory subject supports the diagnosis of Diabetes Mellitus. PERFORMED BY: [place] [id number] PATHOLOGIST INSTRUCTOR [employer]IT[employer]ENCE OJRDAN RODRIGUEZ M.D. Performed By: #### C MP, CBC, MG, TROP, BNP #### [place] [id number] [facility] Glucose [Mass/Vol] 221 mg/dL Normal [facility] Comment on above: Result Comment: [facility] Glucose Reference Range is dependent on time and content of last meal. Glucose of more than 200 mg/dL in a nonstressed, ambulatory subject supports the diagnosis of Diabetes Mellitus. PERFORMED BY: [place] [address] PATHOLOGIST INSTRUCTOR [employer] JORDAN RODRIGUEZ M.D. Performed By: #### C MP, CBC, MG, TROP, BNP #### [address] MR thoracic spine wo conon 0 08-20-2020 MR thoracic spine wo con [facility] Main [place] [address] [place] [address] MRI Report Signed Patient: Rashard Lyman MR#: [id number] : 1960 Acct:[id number] Age/Sex: 60 / M ADM Date: 08/18/20 Loc: Room: [address] [place] [address] Type: ADM IN Attending Dr: Eugene Morel [...] Chitra Brantley M.D.08/20/2020 6:27 PM Dictation Location: [place] [address] Transcribed By: [facility] 08/20/201826 Dictated By: Chitra Brantley MD 08/20/201816 Signed By: 08/20/201826 Normal [facility] Scan and CBCon 08-20-2020 Anisocytosis Ql (Bld) Slight Normal [facility] Comment on above: Performed By: #### C MP, CBC, MG, TROP, BNP #### [address] Basophils (Bld) [#/Vol] 0.0 10*3/uL Normal 0.0-0.2 [facility] Comment on above: Performed By: #### C MP, CBC, MG, TROP, BNP #### [address] Basophils/100 WBC (Bld) 0.3 % Normal . [facility] Comment on above: Performed By: #### C MP, CBC, MG, TROP, BNP #### [place] [address] [place] Dohle Bodies Slight Normal [facility] Comment on above: Performed By: #### C MP, CBC, MG, TROP, BNP #### [address] Eosinophils (Bld) [#/Vol] 0.5 10*3/uL High 0.0-0.45 [facility] Comment on above: Performed By: #### C MP, CBC, MG, TROP, BNP #### [address] Eosinophils/100 WBC (Bld) 3.8 % Normal . [facility] Comment on above: Performed By: #### C MP, CBC, MG, TROP, BNP #### [address] Erythrocyte distribution width (RBC) [Ratio] 16.2 % High 12.0-14.8 [facility] Comment on above: Performed By: #### C MP, CBC, MG, TROP, BNP #### [address] Hematocrit (Bld) [Volume fraction] 32.1 % Low 38.8-50.0 [facility] Comment on above: Performed By: #### C MP, CBC, MG, TROP, BNP #### [address] Hemoglobin (Bld) [Mass/Vol] 10.4 g/dL Low 13.0-17.0 [facility] Comment on above: Performed By: #### C MP, CBC, MG, TROP, BNP #### [address] Lymphocytes (Bld) [#/Vol] 1.5 10*3/uL Normal 1.00-4.8 [facility] Comment on above: Performed By: #### C MP, CBC, MG, TROP, BNP #### [address] Lymphocytes/100 WBC (Bld) 11.0 % Normal . [facility] Comment on above: Performed By: #### C MP, CBC, MG, TROP, BNP #### [address] MCH (RBC) [Entitic mass] 26.7 pg Low 27.5-35.2 [facility] Comment on above: Performed By: #### C MP, CBC, MG, TROP, BNP #### [address] MCV (RBC) [Entitic vol] 82.2 fL Low 83.5-101 [facility] Comment on above: Performed By: #### C MP, CBC, MG, TROP, BNP #### [address] Mean Corpuscular HGB Conc 32.5 g/dL Normal 32.5-35.6 [facility] Comment on above: Performed By: #### C MP, CBC, MG, TROP, BNP #### [address] Monocytes (Bld) [#/Vol] 1.7 10*3/uL High 0.0-0.8 [facility] Comment on above: Performed By: #### C MP, CBC, MG, TROP, BNP #### [address] Monocytes/100 WBC (Bld) 12.5 % Normal . [facility] Comment on above: Performed By: #### C MP, CBC, MG, TROP, BNP #### [address] Neutrophils (Bld) [#/Vol] 9.7 10*3/uL High 1.8-7.7 [facility] Comment on above: Performed By: #### C MP, CBC, MG, TROP, BNP #### [address] Neutrophils/100 WBC (Bld) 72.4 % Normal . [facility] Comment on above: Performed By: #### C MP, CBC, MG, TROP, BNP #### [address] Nucleated RBC/100 WBC (Bld) [Ratio] 0.0 % Normal 0-0.5 [facility] Comment on above: Performed By: #### C MP, CBC, MG, TROP, BNP #### [address] Platelet Estimate Normal Normal Normal [facility] Comment on above: Performed By: #### C MP, CBC, MG, TROP, BNP #### [address] Platelet mean volume (Bld) [Entitic vol] 7.7 fL Normal 6.6-10.1 [facility] Comment on above: Performed By: #### C MP, CBC, MG, TROP, BNP #### [address] Platelet Morphology Normal Normal Normal [facility] Comment on above: Performed By: #### C MP, CBC, MG, TROP, BNP #### [address] Platelets (Bld) [#/Vol] 253 10*3/uL Normal 150-450 [facility] Comment on above: Performed By: #### C MP, CBC, MG, TROP, BNP #### [address] RBC (Bld) [#/Vol] 3.90 10*6/uL Normal 3.90-5.60 [facility] Comment on above: Performed By: #### C MP, CBC, MG, TROP, BNP #### [address] WBC (Bld) [#/Vol] 13.4 10*3/uL High 4.5-11.0 [facility] Comment on above: Performed By: #### C MP, CBC, MG, TROP, BNP #### [address] Serum or plasma C reactive p rotein measurement (mass/volume)on 08-20-2020 CRP [Mass/Vol] 19.4 mg/dL 0.0-1.0 [facility] A1C with Estimated Average G maryannn 08-19-2020 Glucose [Mass/Vol] 298 mg/dL Normal [facility] Comment on above: Result Comment: PERF ORMED BY: [place] [address] PATHOLOGIST [employer] JORDAN RODRIGUEZ M.D. Performed By: #### C MP, CBC, MG, TROP, BNP #### [address] HbA1c (Bld) [Mass fraction] 12.0 % High 4.3-5.6 [facility] Comment on above: Result Comment: Incr eased risk for diabetes: 5.7 - 6.4 diabetes: >6.4 glycemic control for adults with diabetes: <7.0 Performed By: #### C MP, CBC, MG, TROP, BNP #### [address] ABO and Rh group post transf usion reaction Nom (Bld)on 08-19-2020 Microscopic observation Gram stain Nom (Unsp spec) [facility] Aerobic Cultureon 08-19-2020 Aerobic Culture Light Normal Respira tory Edith 2 Days Gram Stain Result 2+ White Blood Cells 1+ Epithelial Cells 1+ Gram Positive Cocci PERFORMED BY: [place] [address] PATHOLOGIST [employer] JORDAN RODRIGUEZ M.D. [facility] Comment on above: Performed By: #### C MP, CBC, MG, TROP, BNP #### [address] Basic Metabolic Panelon 07-29 Calcium [Mass/Vol] 8.4 mg/dL Normal 8.2-10.2 [facility] Comment on above: Performed By: #### C MP, CBC, MG, TROP, BNP #### [address] Chloride [Moles/Vol] 98 mmol/L Normal 95-114 [facility] Comment on above: Performed By: #### C MP, CBC, MG, TROP, BNP #### [address] CO2 [Moles/Vol] 25.3 mmol/L Normal 22.0-30.0 [facility] Comment on above: Performed By: #### C MP, CBC, MG, TROP, BNP #### [address] Creatinine [Mass/Vol] 3.04 mg/dL High 0.64-1.27 [facility] Comment on above: Performed By: #### C MP, CBC, MG, TROP, BNP #### [address] Creatinine Clr Calc Pharmacy 42.91 [facility] Comment on above: Performed By: #### C MP, CBC, MG, TROP, BNP #### [address] Estimated GFR ( Camilla 26 [facility] Comment on above: Result Comment: GFR estimated reference range: According to KDOQI guidelines, <60 ml/min/1.73m2 is sufficient to diagnose a patient with chronic kidney disease. Performed By: #### C MP, CBC, MG, TROP, BNP #### [address] Estimated GFR (Non- Am 21 [facility] Comment on above: Performed By: #### C MP, CBC, MG, TROP, BNP #### [address] Glucose [Mass/Vol] 328 mg/dL High 70-100 [facility] Comment on above: Result Comment: [place] om Glucose Reference Range is dependent on time and content of last meal. Glucose of more than 200 mg/dL in a nonstressed, ambulatory subject supports the diagnosis of Diabetes Mellitus. ADA recommended reference range Performed By: #### C MP, CBC, MG, TROP, BNP #### [address] Potassium [Moles/Vol] 3.4 mmol/L Low 3.5-5.1 [facility] Comment on above: Performed By: #### C MP, CBC, MG, TROP, BNP #### [address] Sodium [Moles/Vol] 131 mmol/L Low 136-146 [facility] Comment on above: Performed By: #### C MP, CBC, MG, TROP, BNP #### [address] [place] [address] [facility] Urea nitrogen [Mass/Vol] 30 mg/dL High 01-19 [facility] Comment on above: Performed By: #### C MP, CBC, MG, TROP, BNP #### [facility] [address] [place] [address] [facility] [address] abdomen pelvis wo conon 0 08-19-2020 CT abdomen pelvis wo con [facility] Main [place] [address] [place] [id number] Scan Report Signed Patient: Rashard Lyman MR#: [id number] : 1960 Acct:[id number] Age/Sex: 60 / M ADM Date: 08/18/20 Loc: Room: 0Q3024-3 Type: ADM IN Attending Dr: Eugene Morel DO Ordering Provider: Eugene Morel DO Date of Service: 08/19/20 CT/CT abdomen pelvis wo con: left sided pain ([id number]) CT/CT chest wo con: left lung base [...] Hector Mckinney M.D.08/19/2020 8:01 PM Dictation Location: [place] [address] Transcribed By: [facility] 08/19/202000 Dictated By: Hector Mckinney II, MD 08/19/201947 Signed By: 08/19/202000 [facility] Glucose Poct Glucometerson 0 08-19-2020 Glucose [Mass/Vol] 266 mg/dL Normal [facility] Comment on above: Result Comment: [facility] Glucose Reference Range is dependent on time and content of last meal. Glucose of more than 200 mg/dL in a nonstressed, ambulatory subject supports the diagnosis of Diabetes Mellitus. PERFORMED BY: [place] [address] PATHOLOGIST [employer] JORDAN RODRIGUEZ M.D. Performed By: #### C MP, CBC, MG, TROP, BNP #### [address] Glucose [Mass/Vol] 349 mg/dL Normal [facility] Comment on above: Result Comment: [facility] Glucose Reference Range is dependent on time and content of last meal. Glucose of more than 200 mg/dL in a nonstressed, ambulatory subject supports the diagnosis of Diabetes Mellitus. PERFORMED BY: [place] [address] PATHOLOGIST [employer] JORDAN RODRIGUEZ M.D. Performed By: #### C MP, CBC, MG, TROP, BNP #### [facility] [address] [place] [address] Glucose [Mass/Vol] 258 mg/dL Normal [facility] Comment on above: Result Comment: [facility] Glucose Reference Range is dependent on time and content of last meal. Glucose of more than 200 mg/dL in a nonstressed, ambulatory subject supports the diagnosis of Diabetes Mellitus. PERFORMED BY: [place] [address] PATHOLOGIST [employer] JORDAN RODRIGUEZ M.D. Performed By: #### C MP, CBC, MG, TROP, BNP #### [facility] [address] [place] [address] Glucose [Mass/Vol] 292 mg/dL Normal [facility] Comment on above: Result Comment: [facility] Glucose Reference Range is dependent on time and content of last meal. Glucose of more than 200 mg/dL in a nonstressed, ambulatory subject supports the diagnosis of Diabetes Mellitus. PERFORMED BY: [place] [address] PATHOLOGIST [employer] JORDAN RODRIGUEZ M.D. Performed By: #### C MP, CBC, MG, TROP, BNP #### [facility] [address] [place] [address] [place] Commemt1 Glu2: Cleaned Meter Normal [facility] Comment on above: Result Comment: PERF ORMED BY: [place] [address] PATHOLOGIST IN[employer] JORDAN RODRIGUEZ M.D. Performed By: #### C MP, CBC, MG, TROP, BNP #### [facility] [address] Glucose [Mass/Vol] 350 mg/dL Normal [facility] Comment on above: Result Comment: [facility] Glucose Reference Range is dependent on time and content of last meal. Glucose of more than 200 mg/dL in a nonstressed, ambulatory subject supports the diagnosis of Diabetes Mellitus. Performed By: #### C MP, CBC, MG, TROP, BNP #### [address] Glucose mean value [Mass/vol ume] in Blood Estimated from glycated hemoglobinon 08-19-2020 Average glucose Estimated from glycated hemoglobin (Bld) [Mass/Vol] 298 mg/dL [facility] Gram Stainon 08-19-2020 Microscopic observation Gram stain Nom (Unsp spec) Gram Stain Result 2+ White Blood Cells 1+ Epithelial Cells 1+ Gram Positive Cocci PERFORMED BY: [place] [address] PATHOLOGIST IN[employer] JORDAN RODRIGUEZ M.D. [facility] Comment on above: Performed By: #### C MP, CBC, MG, TROP, BNP #### [address] Hemoglobin A1c percentageon 08-19-2020 HbA1c (Bld) [Mass fraction] 12.0 % 4.3-5.6 [facility] Comment on above: Increased risk for d iabetes: 5.7 - 6.4diabetes: >6.4glycemic control for adults with diabetes: <7.0 Laboratory - Chemistry and C hemistry - challengeon 08-19-2020 Magnesium [Mass/Vol] 2.0 mg/dL 1.6-2.6 [facility] Magnesiumon 08-19-2020 Magnesium [Mass/Vol] 2.0 mg/dL Normal 1.6-2.6 [facility] Comment on above: Performed By: #### C MP, CBC, MG, TROP, BNP #### [address] No Panel Informationon 08-19 25-Hydroxy Vitamin D Total 24.6 ng/mL 30-100 [facility] Comment on above: VITAMIN D STATUS 25( [place])VITAMIN D RANGE (ng/mL) Deficient <20 Insufficient 20 to <30Sufficient 30 to 100Reference: Aki MF,Oriana NGUYEN, Elli JONAS, et al. Evaluation,treatment, and prevention of vitamin D deficiency; an Endocrine Society clinical practice guideline. JCEM. 2010; 96(7):1911-30. Scan and CBCon 08-19-2020 Anisocytosis Ql (Bld) Slight Normal [facility] Comment on above: Performed By: #### C MP, CBC, MG, TROP, BNP #### [address] Basophils (Bld) [#/Vol] 0.1 10*3/uL Normal 0.0-0.2 [facility] Comment on above: Performed By: #### C MP, CBC, MG, TROP, BNP #### [address] Basophils/100 WBC (Bld) 0.8 % Normal . [facility] Comment on above: Performed By: #### C MP, CBC, MG, TROP, BNP #### [address] Eosinophils (Bld) [#/Vol] 0.4 10*3/uL Normal 0.0-0.45 [facility] Comment on above: Performed By: #### C MP, CBC, MG, TROP, BNP #### [address] Eosinophils/100 WBC (Bld) 2.8 % Normal . [facility] Comment on above: Performed By: #### C MP, CBC, MG, TROP, BNP #### [address] Erythrocyte distribution width (RBC) [Ratio] 16.0 % High 12.0-14.8 [facility] Comment on above: Performed By: #### C MP, CBC, MG, TROP, BNP #### [address] Hematocrit (Bld) [Volume fraction] 32.4 % Low 38.8-50.0 [facility] Comment on above: Performed By: #### C MP, CBC, MG, TROP, BNP #### [address] Hemoglobin (Bld) [Mass/Vol] 10.5 g/dL Low 13.0-17.0 [facility] Comment on above: Performed By: #### C MP, CBC, MG, TROP, BNP #### [address] Lymphocytes (Bld) [#/Vol] 1.6 10*3/uL Normal 1.00-4.8 [facility] Comment on above: Performed By: #### C MP, CBC, MG, TROP, BNP #### [address] Lymphocytes/100 WBC (Bld) 11.4 % Normal . [facility] Comment on above: Performed By: #### C MP, CBC, MG, TROP, BNP #### [address] MCH (RBC) [Entitic mass] 26.6 pg Low 27.5-35.2 [facility] Comment on above: Performed By: #### C MP, CBC, MG, TROP, BNP #### [address] MCV (RBC) [Entitic vol] 82.4 fL Low 83.5-101 [facility] Comment on above: Performed By: #### C MP, CBC, MG, TROP, BNP #### [address] Mean Corpuscular HGB Conc 32.3 g/dL Low 32.5-35.6 [facility] Comment on above: Performed By: #### C MP, CBC, MG, TROP, BNP #### [address] Monocytes (Bld) [#/Vol] 1.6 10*3/uL High 0.0-0.8 [facility] Comment on above: Performed By: #### C MP, CBC, MG, TROP, BNP #### [address] Monocytes/100 WBC (Bld) 11.7 % Normal . [facility] Comment on above: Performed By: #### C MP, CBC, MG, TROP, BNP #### [address] Neutrophils (Bld) [#/Vol] 10.2 10*3/uL High 1.8-7.7 [facility] Comment on above: Performed By: #### C MP, CBC, MG, TROP, BNP #### [address] Neutrophils/100 WBC (Bld) 73.3 % Normal . [facility] Comment on above: Performed By: #### C MP, CBC, MG, TROP, BNP #### [address] Nucleated RBC/100 WBC (Bld) [Ratio] 0.0 % Normal 0-0.5 [facility] Comment on above: Performed By: #### C MP, CBC, MG, TROP, BNP #### [address] Platelet Estimate Normal Normal Normal [facility] Comment on above: Performed By: #### C MP, CBC, MG, TROP, BNP #### [address] Platelet mean volume (Bld) [Entitic vol] 7.5 fL Normal 6.6-10.1 [facility] Comment on above: Performed By: #### C MP, CBC, MG, TROP, BNP #### [address] Platelet Morphology Normal Normal Normal [facility] Comment on above: Result Comment: PERF ORMED BY: [place] [address] PATHOLOGIST IN[employer] JORDAN RODRIGUEZ M.D. Performed By: #### C MP, CBC, MG, TROP, BNP #### [facility] [address] Platelets (Bld) [#/Vol] 249 10*3/uL Normal 150-450 [facility] Comment on above: Performed By: #### C MP, CBC, MG, TROP, BNP #### [facility] [address] RBC (Bld) [#/Vol] 3.93 10*6/uL Normal 3.90-5.60 [facility] Comment on above: Performed By: #### C MP, CBC, MG, TROP, BNP #### [facility] [address] WBC (Bld) [#/Vol] 14.0 10*3/uL High 4.5-11.0 [facility] Comment on above: Performed By: #### C MP, CBC, MG, TROP, BNP #### [address] US renal BIon 08-19-2020 US renal BI [facility] Main [place] [address] [place] [address] Ultrasound Report Signed Patient: Rashard Lyman MR#: [id number] : 1960 Acct:[id number] Age/Sex: 60 / M ADM Date: 08/18/20 Loc: Room: [address] [place] [address] Type: ADM IN Attending Dr: Eugene Morel [...] Hector Mckinney M.D.08/19/2020 6:09 PM Dictation Location: [place] [address] Tech: Sandra Sierra Transcribed By: JU 08/19/201808 Dictated By: Hector Mckinney II, MD 08/19/201807 Signed By: 08/19/201808 Normal [facility] Vitamin D 25 Hydroxy Totalon 08-19-2020 Vitamin D 25 Hydroxy Total 24.6 ng/mL Low 30-100 [facility] Comment on above: Result Comment: ADA MIN D STATUS 25(OH)VITAMIN D RANGE (ng/mL) Deficient <20 Insufficient 20 to <30 Sufficient 30 to 100 Reference: Aki MF,Oriana [place], Elli JONAS, et al. Evaluation,treatment, and prevention of vitamin D deficiency; an Endocrine Society clinical practice guideline. JCEM. 2010; 96(7):1911-30. PERFORMED BY: [place] [address] PATHOLOGIST IN[employer] JORDAN RODRIGUEZ M.D. Performed By: #### C MP, CBC, MG, TROP, BNP #### [address] Activated partial thrombopla stin time (aPTT) in platelet poor plasma by coagulation aon 08-18-2020 aPTT Coag (PPP) [Time] 36.9 s 25.1-36.5 [facility] Albumin [Mass/volume] in Ser um or Plasmaon 08-18-2020 Albumin [Mass/Vol] 2.7 g/dL 3.2-5.5 [facility] B-Type Natriuretic Peptideon 08-18-2020 Natriuretic peptide B (Bld) [Mass/Vol] 48.0 pg/mL Normal 5-100 [facility] Comment on above: Result Comment: PERF ORMED BY: [place] [address] PATHOLOGIST IN[employer] JORDAN RODRIGUEZ M.D. Performed By: #### C MP, CBC, MG, TROP, BNP #### [address] Bacterial blood cultureon Bacteria identified Cx Nom (Bld) NO GROWTH 5 DAYS [facility] Basophils Auto (Bld) [#/Vol] on 08-18-2020 Basophils (Bld) [#/Vol] 0.0 10*3/uL 0.0-0.2 [facility] Basophils/100 WBC Auto (Bld) on 08-18-2020 Basophils/100 WBC (Bld) 0.3 % [facility] Beta Hydroxybuterateon 08-18 Beta Hydroxybuterate 0.44 mmol/L High 0.02-0.27 [facility] Comment on above: Result Comment: PERF ORMED BY: [place] [address] PATHOLOGIST IN[employer]CTOR [employer] JORDAN RODRIGUEZ M.D. Performed By: #### C MP, CBC, MG, TROP, BNP #### [address] Beta-hydroxybutyric acid faraz surementon 08-18-2020 Beta hydroxybutyrate [Mass/Vol] 0.44 mmol/L 0.02-0.27 [facility] BioFire Not Detectedon 08-18 BioFire Not Detected Not detected Normal Not Detecte [facility] Comment on above: Result Comment: This is a duplicate RP2.1 COVID (PCR) result to be used for statistical tracking purpose only. PERFORMED BY: [place] [address] PATHOLOGIST IN[employer] JORDAN RODRIGUEZ M.D. Performed By: #### C MP, CBC, MG, TROP, BNP #### [address] [address] [place] Blood Cultureon 08-18-2020 Bacteria identified Cx Nom (Bld) NO GROWTH 5 DAYS PERFORMED BY: [place] [address] PATHOLOGIST INSTRUCTOR [employer] JORDAN RODRIGUEZ M.D. [facility] Comment on above: Performed By: #### C MP, CBC, MG, TROP, BNP #### [facility] [address] [place] [address] Bacteria identified Cx Nom (Bld) NO GROWTH 5 DAYS PERFORMED BY: [place] [address] PATHOLOGIST INSTRUCTOR [employer] JORDAN RODRIGUEZ M.D. [facility] Comment on above: Performed By: #### C MP, CBC, MG, TROP, BNP #### [facility] [address] [place] [address] Blood hemoglobin measurement (mass/volume)on 08-18-2020 Hemoglobin (Bld) [Mass/Vol] 11.8 g/dL 13.0-17.0 [facility] Blood leukocytes automated c ount (number/volume)on 08-18-2020 WBC (Bld) [#/Vol] 15.3 10*3/uL 4.5-11.0 [facility] COVID-19 Antigenon 1 COVID-19 Antigen Healthcare Worker?: [...] its performance Liat Disclaimer characteristic determined by [employer] and Liat Disclaimer validated at [facility]. This Liat Disclaimer test has [...] Emergency Use Authorization for Coronavirus Liat Disclaimer isease-2019 during the Public Health Emergency) Liat Disclaimer [...] is terminated or revoked sooner. PERFORMED BY: [address] [place] [address] PATHOLOGIST INSTRUCTOR [employer] JORDAN RODRIGUEZ M.D. Normal [facility] Comment on above: Performed By: #### C OVID-19 LIAT, SOFIANEG #### [address] COVID-19 Detected/Not Detect edon 08-18-2020 SARS-CoV-2 (COVID-19) RNA SUDHA+non-probe Ql (Nph) Not detected Not Detecte [facility] Comment on above: This is a duplicate RP2.1 COVID (PCR) result to be used for statistical tracking purpose only. COVID-19 SOFIAon 08-18-2020 SARS-CoV+SARS-CoV-2 (COVID-19) Ag IA.rapid Ql (Resp) Negative Negative [facility] Comment on above: This is a duplicate Liat SARS Antigen (AGUSTINA) result to be used for statistical tracking purpose only. Coagulation Profileon 2020 aPTT Coag (Bld) [Time] 36.9 s High 25.1-36.5 [facility] Comment on above: Order Comment: REDRA W FOR SHORT DRAW AND HEMOLYSIS Result Comment: PERF ORMED BY: [place] [address] PATHOLOGIST IN[employer] JORDAN RODRIGUEZ M.D. Performed By: #### P P #### [address] INR Coag (PPP) [Relative time] 1.0 {INR} Normal [facility] Comment on above: Order Comment: [...] 4.5 Performed By: #### P P #### [address] PT Coag (PPP) [Time] 11.7 s Normal 9.0-12.9 [facility] Comment on above: Order Comment: REDRA W FOR SHORT DRAW AND HEMOLYSIS Performed By: #### P P #### [address] Complete Blood Count Auto Di ffon 08-18-2020 Basophils (Bld) [#/Vol] 0.0 10*3/uL Normal 0.0-0.2 [facility] Comment on above: Result Comment: PERF ORMED BY: [place] [address] PATHOLOGIST INSTRU[employer] JORDAN RODRIGUEZ M.D. Performed By: #### C MP, CBC, MG, TROP, BNP #### [address] Basophils/100 WBC (Bld) 0.3 % Normal . [facility] Comment on above: Performed By: #### C MP, CBC, MG, TROP, BNP #### [address] Eosinophils (Bld) [#/Vol] 0.5 10*3/uL High 0.0-0.45 [facility] Comment on above: Performed By: #### C MP, CBC, MG, TROP, BNP #### [address] Eosinophils/100 WBC (Bld) 3.4 % Normal . [facility] Comment on above: Performed By: #### C MP, CBC, MG, TROP, BNP #### [address] Erythrocyte distribution width (RBC) [Ratio] 16.3 % High 12.0-14.8 [facility] Comment on above: Performed By: #### C MP, CBC, MG, TROP, BNP #### [facility] [address] Hematocrit (Bld) [Volume fraction] 36.1 % Low 38.8-50.0 [facility] Comment on above: Performed By: #### C MP, CBC, MG, TROP, BNP #### [address] Hemoglobin (Bld) [Mass/Vol] 11.8 g/dL Low 13.0-17.0 [facility] Comment on above: Performed By: #### C MP, CBC, MG, TROP, BNP #### [address] Lymphocytes (Bld) [#/Vol] 0.9 10*3/uL Low 1.00-4.8 [facility] Comment on above: Performed By: #### C MP, CBC, MG, TROP, BNP #### [address] Lymphocytes/100 WBC (Bld) 6.1 % Normal . [facility] Comment on above: Performed By: #### C MP, CBC, MG, TROP, BNP #### [address] MCH (RBC) [Entitic mass] 27.2 pg Low 27.5-35.2 [facility] Comment on above: Performed By: #### C MP, CBC, MG, TROP, BNP #### [address] MCV (RBC) [Entitic vol] 83.5 fL Normal 83.5-101 [facility] Comment on above: Performed By: #### C MP, CBC, MG, TROP, BNP #### [address] Mean Corpuscular HGB Conc 32.6 g/dL Normal 32.5-35.6 [facility] Comment on above: Performed By: #### C MP, CBC, MG, TROP, BNP #### [address] Monocytes (Bld) [#/Vol] 1.5 10*3/uL High 0.0-0.8 [facility] Comment on above: Performed By: #### C MP, CBC, MG, TROP, BNP #### [address] Monocytes/100 WBC (Bld) 10.1 % Normal . [facility] Comment on above: Performed By: #### C MP, CBC, MG, TROP, BNP #### [address] Neutrophils (Bld) [#/Vol] 12.3 10*3/uL High 1.8-7.7 [facility] Comment on above: Performed By: #### C MP, CBC, MG, TROP, BNP #### [address] Neutrophils/100 WBC (Bld) 80.1 % Normal . [facility] Comment on above: Performed By: #### C MP, CBC, MG, TROP, BNP #### [address] Nucleated RBC/100 WBC (Bld) [Ratio] 0.1 % Normal 0-0.5 [facility] Comment on above: Performed By: #### C MP, CBC, MG, TROP, BNP #### [address] Platelet mean volume (Bld) [Entitic vol] 7.3 fL Normal 6.6-10.1 [facility] Comment on above: Performed By: #### C MP, CBC, MG, TROP, BNP #### [place] [address] [place] Platelets (Bld) [#/Vol] 249 10*3/uL Normal 150-450 [facility] Comment on above: Performed By: #### C MP, CBC, MG, TROP, BNP #### [place] [address] [place] RBC (Bld) [#/Vol] 4.32 10*6/uL Normal 3.90-5.60 [facility] Comment on above: Performed By: #### C MP, CBC, MG, TROP, BNP #### [facility] [address] [place] [address] WBC (Bld) [#/Vol] 15.3 10*3/uL High 4.5-11.0 [facility] Comment on above: Performed By: #### C MP, CBC, MG, TROP, BNP #### [address] Comprehensive Metabolic Pane babatunde 08-18-2020 Albumin [Mass/Vol] 2.7 g/dL Low 3.2-5.5 [facility] Comment on above: Performed By: #### C MP, CBC, MG, TROP, BNP #### [address] Albumin/Globulin [Mass ratio] 0.6 {ratio} Normal [facility] Comment on above: Performed By: #### C MP, CBC, MG, TROP, BNP #### [address] ALP [Catalytic activity/Vol] 88 U/L Normal 32-92 [facility] Comment on above: Performed By: #### C MP, CBC, MG, TROP, BNP #### [address] ALT [Catalytic activity/Vol] 13 U/L Normal 10-60 [facility] Comment on above: Performed By: #### C MP, CBC, MG, TROP, BNP #### [address] AST [Catalytic activity/Vol] 16 U/L Normal 10-42 [facility] Comment on above: Performed By: #### C MP, CBC, MG, TROP, BNP #### [address] Bilirubin [Mass/Vol] 0.7 mg/dL Normal 0.3-1.2 [facility] Comment on above: Performed By: #### C MP, CBC, MG, TROP, BNP #### [address] Calcium [Mass/Vol] 8.9 mg/dL Normal 8.2-10.2 [facility] Comment on above: Performed By: #### C MP, CBC, MG, TROP, BNP #### [facility] [address] [place] [address] Chloride [Moles/Vol] 95 mmol/L Normal 95-114 [facility] Comment on above: Performed By: #### C MP, CBC, MG, TROP, BNP #### [address] CO2 [Moles/Vol] 22.6 mmol/L Normal 22.0-30.0 [facility] Comment on above: Performed By: #### C MP, CBC, MG, TROP, BNP #### [address] Creatinine [Mass/Vol] 3.04 mg/dL High 0.64-1.27 [facility] Comment on above: Performed By: #### C MP, CBC, MG, TROP, BNP #### [address] Creatinine Clr Calc Pharmacy 38.57 [facility] Comment on above: Performed By: #### C MP, CBC, MG, TROP, BNP #### [address] Estimated GFR ( Camilla 26 [facility] Comment on above: Result Comment: GFR estimated reference range: According to KDOQI guidelines, <60 ml/min/1.73m2 is sufficient to diagnose a patient with chronic kidney disease. Performed By: #### C MP, CBC, MG, TROP, BNP #### [facility] [address] [place] [address] Estimated GFR (Non- Am 21 [facility] Comment on above: Performed By: #### C MP, CBC, MG, TROP, BNP #### [address] Globulin (S) [Mass/Vol] 4.4 g/dL [facility] Comment on above: Performed By: #### C MP, CBC, MG, TROP, BNP #### [facility] [address] Glucose [Mass/Vol] 512 mg/dL Off scale high 70-100 [facility] Comment on above: Result Comment: Resu lts called at 1659 on 08/18/20 Random Glucose Reference Range is dependent on time and content of last meal. Glucose of more than 200 mg/dL in a nonstressed, ambulatory subject supports the diagnosis of Diabetes Mellitus. ADA recommended reference range Performed By: #### C MP, CBC, MG, TROP, BNP #### [address] Potassium [Moles/Vol] 4.2 mmol/L Normal 3.5-5.1 [facility] Comment on above: Performed By: #### C MP, CBC, MG, TROP, BNP #### [address] Protein [Mass/Vol] 7.1 g/dL Normal 6.1-7.9 [facility] Comment on above: Performed By: #### C MP, CBC, MG, TROP, BNP #### [address] Sodium [Moles/Vol] 128 mmol/L Low 136-146 [facility] Comment on above: Performed By: #### C MP, CBC, MG, TROP, BNP #### [place] [address] [place] Urea nitrogen [Mass/Vol] 27 mg/dL High 9-23 [facility] Comment on above: Performed By: #### C MP, CBC, MG, TROP, BNP #### [place] [address] [place] Creatinine and Glomerular fi ltration rate.predicted panel (S/P/Bld)on 08-18-2020 Creatinine [Mass/Vol] 3.04 mg/dL 0.64-1.27 [facility] ECG 12 lead ECGon 08-18-2020 ECG 12 lead ECG [facility] [place] [address] Electrocardiograph Report Signed Patient: Rashard Lyman MR#: [id number] : 1960 Acct:[id number] Age/Sex: 60 / M ADM Date: 08/18/20 Loc: Room: [address] [place] [address] Type: ADM IN Attending Dr: Eugene Morel [...] was found Confirmed by ADRIA PABON DO ([id number]) on 08/19/2020 10:02:40 AM Referred By: Electronically Signed By:ADRIA PABON DO Transcribed By: MUS Dictated By: Adria Pabon DO 08/18/20 1539 Signed By: 08/19/20 1002 Normal [facility] Eosinophils Auto (Bld) [#/Vo l]on 08-18-2020 Eosinophils (Bld) [#/Vol] 0.5 10*3/uL 0.0-0.45 [facility] Eosinophils/100 WBC Auto (Bl d)on 08-18-2020 Eosinophils/100 WBC (Bld) 3.4 % [facility] Erythrocyte distribution wid th Auto (RBC) [Ratio]on 08-18-2020 Erythrocyte distribution width (RBC) [Ratio] 16.3 % 12.0-14.8 [facility] Estimated glomerular filtrat ion rate (GFR) non- Americanon 08-18-2020 GFR/1.73 sq M.predicted among non-blacks MDRD (S/P/Bld) [Vol rate/Area] 21 mL/Min [facility] Globulin Calc (S) [Mass/Vol] on 08-18-2020 Globulin (S) [Mass/Vol] 4.4 g/dL [facility] Glucose Glucometer (BldC) [M ass/Vol]on 08-18-2020 Glucose [Mass/Vol] 388 mg/dL [facility] Comment on above: Random Glucose Refer ence Range is dependent on time and content of last meal. Glucose of more than 200 mg/dL in a nonstressed, ambulatory subject supports the diagnosis of Diabetes Mellitus. Glucose Poct Glucometerson 0 08-18-2020 Glucose [Mass/Vol] 388 mg/dL Normal [facility] Comment on above: Result Comment: Wallace om Glucose Reference Range is dependent on time and content of last meal. Glucose of more than 200 mg/dL in a nonstressed, ambulatory subject supports the diagnosis of Diabetes Mellitus. PERFORMED BY: [place] [address] PATHOLOGIST [employer] JORDAN RODRIGUEZ M.D. Performed By: #### C MP, CBC, MG, TROP, BNP #### [address] Hematocrit Auto (Bld) [Volum e fraction]on 08-18-2020 Hematocrit (Bld) [Volume fraction] 36.1 % 38.8-50.0 [facility] Laboratory - Chemistry and C hemistry - challengeon 08-18-2020 CO2 [Moles/Vol] 25.7 mmol/L 24.0-29.0 [facility] HCO3 (Bld) [Moles/Vol] 24.3 mmol/L 23.0-29.0 [facility] Magnesium [Mass/Vol] 2.2 mg/dL 1.6-2.6 [facility] Natriuretic peptide B (Bld) [Mass/Vol] 48.0 pg/mL 5-100 [facility] Laboratory - Coagulationon 0 08-18-2020 PT Coag (PPP) [Time] 11.7 s 9.0-12.9 [facility] Laboratory - Hematology and Cell countson 08-18-2020 Nucleated RBC/100 WBC (Bld) [Ratio] 0.1 % 0-0.5 [facility] Lymphocytes Auto (Bld) [#/Vo l]on 08-18-2020 Lymphocytes (Bld) [#/Vol] 0.9 10*3/uL 1.00-4.8 [facility] Lymphocytes/100 WBC Auto (Bl d)on 08-18-2020 Lymphocytes/100 WBC (Bld) 6.1 % [facility] MCH Auto (RBC) [Entitic mass ]on 08-18-2020 MCH (RBC) [Entitic mass] 27.2 pg 27.5-35.2 [facility] MCHC Auto (RBC) [Mass/Vol]on 08-18-2020 MCHC (RBC) [Mass/Vol] 32.6 g/dL 32.5-35.6 [facility] MCV Auto (RBC) [Entitic vol] on 08-18-2020 MCV (RBC) [Entitic vol] 83.5 fL 83.5-101 [facility] Magnesiumon 08-18-2020 Magnesium [Mass/Vol] 2.2 mg/dL Normal 1.6-2.6 [facility] Comment on above: Result Comment: PERF ORMED BY: [place] [address] PATHOLOGIST [employer] JORDAN RODRIGUEZ M.D. Performed By: #### C MP, CBC, MG, TROP, BNP #### [address] Monocytes Auto (Bld) [#/Vol] on 08-18-2020 Monocytes (Bld) [#/Vol] 1.5 10*3/uL 0.0-0.8 [facility] Monocytes/100 WBC Auto (Bld) on 08-18-2020 Monocytes/100 WBC (Bld) 10.1 % [facility] Neutrophils Auto (Bld) [#/Vo l]on 08-18-2020 Neutrophils (Bld) [#/Vol] 12.3 10*3/uL 1.8-7.7 [facility] Neutrophils/100 WBC Auto (Bl d)on 08-18-2020 Neutrophils/100 WBC (Bld) 80.1 % [facility] No Panel Informationon 08-18 Respiratory Panel (PCR) [facility] Blood Gas Critical Value See comment [facility] Comment on above: Critical Value fonseca d on: 08/18/2020 at 17:44 Blood Gas Sample Site Venous [facility] FiO2 21 % [facility] Venous Blood Base Excess -1.5 mmol/L -3.0-3.0 [facility] Venous Blood Oxygen Content 4.1 mmol/L 6.6-9.7 [facility] Venous Blood Oxygen Saturation 53.3 % 73.0-76.0 [facility] Venous Blood Partial Pressure CO2 45.2 mm[Hg] 38.0-50.0 [facility] Venous Blood Partial Pressure O2 24.4 mm[Hg] 35.0-45.0 [facility] Venous Blood pH 7.35 7.32-7.43 [facility] Estimated GFR () 26 mL/Min [facility] Comment on above: GFR estimated refere nce range: According to KDOQI guidelines, <60 ml/min/1.73m2 is sufficient to diagnose a patient with chronic kidney disease. Pharmacy Creatinine Clearance (Chem 38.57 [facility] Platelet mean volume Auto (B ld) [Entitic vol]on 08-18-2020 Platelet mean volume (Bld) [Entitic vol] 7.3 fL 6.6-10.1 [facility] Platelet poor plasma interna tional normalized ratio (INR) by coagulation assay (relaton 08-18-2020 INR Coag (PPP) [Relative time] 1.0 {INR} [facility] Comment on above: INR Therapeutic Rang [...] 08-18-2020 Platelets (Bld) [#/Vol] 249 10*3/uL 150-450 [facility] Protein [Mass/volume] in Ser um or Plasmaon 08-18-2020 Protein [Mass/Vol] 7.1 g/dL 6.1-7.9 [facility] RBC Auto (Bld) [#/Vol]on RBC (Bld) [#/Vol] 4.32 10*6/uL 3.90-5.60 [facility] Respiratory (Upper) Panel, P CRon 08-18-2020 Respiratory (Upper) Panel, PCR Adenovirus Not detected Bordetella parapertussis Not detected Chlamydia pneumoniae Not detected Coronavirus 229E Not detected Coronavirus HKU1 Not detected Coronavirus NL63 Not detected Coronavirus OC43 Not detected COVID19 Blank Space -- COVID19 Disclaimer This test was developed and its performance COVID19 Disclaimer characteristics determined by [employer], COVID19 Disclaimer Disease-2019 during the Public Health [...] COVID19 Disclaimer terminated or revoked sooner. COVID19 [employer] and [facility]. This has not been FDA cleared or [...] Detected Not detected PERFORMED BY: [facility] [address] [place] [address] PATHOLOGIST [employer] JORDAN RODRIGUEZ M.D. [facility] Comment on above: Performed By: #### C MP, CBC, MG, TROP, BNP #### [facility] [address] Serum or plasma alanine gomez otransferase measurement without P-5'-P (enzymatic activion 08-18-2020 ALT No additional P-5'-P [Catalytic activity/Vol] 13 U/L 10-60 [facility] Serum or plasma albumin/glob ulin mass ratioon 08-18-2020 Albumin/Globulin [Mass ratio] 0.6 {ratio} [facility] Serum or plasma alkaline kayode sphatase measurement (enzymatic activity/volume)on 08-18-2020 ALP [Catalytic activity/Vol] 88 U/L 32-92 [facility] Serum or plasma aspartate am inotransferase measurement (enzymatic activity/volume)on 08-18-2020 AST [Catalytic activity/Vol] 16 U/L 10-42 [facility] Serum or plasma calcium joel urement (mass/volume)on 08-18-2020 Calcium [Mass/Vol] 8.9 mg/dL 8.2-10.2 [facility] Serum or plasma cardiac trop onin I measurement (mass/volume)on 08-18-2020 Troponin I.cardiac [Mass/Vol] ng/mL 0-0.02 [facility] Comment on above: HÉCTOR WI Cut off value > or equal to 0.03 ng/mL in conjunction with clinical conditions of myocardial infarction.(www.escardio.org/guidelines) Serum or plasma chloride faraz surement (moles/volume)on 08-18-2020 Chloride [Moles/Vol] 95 mmol/L 95-114 [facility] Serum or plasma glucose joel urement (mass/volume)on 08-18-2020 Glucose [Mass/Vol] 512 mg/dL 70-100 [facility] Comment on above: Results calledat 165 9 on 08/18/20 ADA recommended reference rangeRandom Glucose Reference Range is dependent on time and content of last meal. Glucose of more than 200 mg/dL in a nonstressed, ambulatory subject supports the diagnosis of Diabetes Mellitus. Serum or plasma potassium me asurement (moles/volume)on 08-18-2020 Potassium [Moles/Vol] 4.2 mmol/L 3.5-5.1 [facility] Serum or plasma sodium measu rement (moles/volume)on 08-18-2020 Sodium [Moles/Vol] 128 mmol/L 136-146 [facility] Serum or plasma total biliru bin measurement (mass/volume)on 08-18-2020 Bilirubin [Mass/Vol] 0.7 mg/dL 0.3-1.2 [facility] Serum or plasma total carbon dioxide measurement (moles/volume)on 08-18-2020 CO2 [Moles/Vol] 22.6 mmol/L 22.0-30.0 [facility] Serum or plasma urea nitroge n measurement (mass/volume)on 08-18-2020 Urea nitrogen [Mass/Vol] 27 mg/dL 9- [facility] Liat Ag Negativeon 08-19-19 Liat Ag Negative Negative Normal Negative [facility] Comment on above: Result Comment: This is a duplicate Liat SARS Antigen (AGUSTINA) result to be used for statistical tracking purpose only. PERFORMED BY: [place] [address] PATHOLOGIST [employer] JORDAN RODRIGUEZ M.D. Performed By: #### C OVID-19 LIAT, SOFIANEG #### [address] Troponin I(TnI)on 08-18-2020 Troponin I.cardiac [Mass/Vol] ng/mL Normal 0-0.02 [facility] Comment on above: Result Comment: H[place]CTOR [place] Cut off value > or equal to 0.03 ng/mL in conjunction with clinical conditions of myocardial infarction. (www.escardio.org/guidelines) PERFORMED BY: [place] [address] PATHOLOGIST [employer] JORDAN RODRIGUEZ M.D. Performed By: #### C MP, CBC, MG, TROP, BNP #### [address] Venous Blood Gason CO2 [Moles/Vol] 25.7 mmol/L Normal 24.0-29.0 [facility] Comment on above: Performed By: #### V BG #### Point of Care testing , HCO3 (Bld) [Moles/Vol] 24.3 mmol/L Normal 23.0-29.0 [facility] Comment on above: Performed By: #### V BG #### Point of Care testing , Respiratory Critical Normal [facility] Comment on above: Result Comment: Crit ical Value called on: 08/18/2020 at 17:44 PERFORMED BY: [place] [address] PATHOLOGIST [employer] JORDAN RODRIGUEZ M.D. Performed By: #### V BG #### Point of Care testing , VBG Base Excess -1.5 mmol/L Normal -3.0-3.0 [facility] Comment on above: Performed By: #### V BG #### Point of Care testing , VBG Draw Site Venous Normal [facility] Comment on above: Performed By: #### V BG #### Point of Care testing , VBG Frac Inspired O2 21 % Normal [facility] Comment on above: Performed By: #### V BG #### Point of Care testing , VBG O2 Content 4.1 mmol/L Low 6.6-9.7 [facility] Comment on above: Performed By: #### V BG #### Point of Care testing , VBG Oxygen Saturation 53.3 % Off scale low 73.0-76.0 [facility] Comment on above: Performed By: #### V BG #### Point of Care testing , VBG PCO2 45.2 mm[Hg] Normal 38.0-50.0 [facility] Comment on above: Performed By: #### V BG #### Point of Care testing , VBG PH Venous PH 7.35 Normal 7.32-7.43 [facility] Comment on above: Performed By: #### V BG #### Point of Care testing , VBG PO2 24.4 mm[Hg] Low 35.0-45.0 [facility] Comment on above: Performed By: #### V BG #### Point of Care testing , XR chest 1V portableon 08-18 XR chest 1V portable [facility] [place] [address] [place] [address] XRay Report Signed Patient: Rashard Lyman MR#: [id number] : 1960 Acct:[id number] Age/Sex: 60 / M ADM Date: 08/18/20 Loc: ER Room: Type: [facility] ER Attending Dr: Ordering Provider: Mariana Basilio [...] Chitra Brantley M.D.08/18/2020 4:24 PM Dictation Location: [place] [address] Transcribed By: [facility] 08/18/201623 Dictated By: Chitra Brantley MD 08/18/201622 Signed By: 08/18/201623 Normal [facility] CBC COMPLETE BLOOD COUNTon 0 07-22-2020 Erythrocyte distribution width (RBC) [Ratio] 15.0 % Normal 11.5-15.0 [facility] Comment on above: Order Comment: No: D o not add to previous draw Performed By: #### 8 [id number] #### [facility] [address] [place] [address], [facility] Hematocrit (Bld) [Volume fraction] 32.4 % Low 39.0-50.0 [facility] Comment on above: Order Comment: No: D o not add to previous draw Performed By: #### 8 [id number] #### [facility] [address] [place] [address], [facility] Hemoglobin (Bld) [Mass/Vol] 9.5 g/dL Low 13.0-17.0 [facility] Comment on above: Order Comment: No: D o not add to previous draw Performed By: #### 8 [id number] #### [facility] [address] [place] [address], [facility] MCH (RBC) [Entitic mass] 26.7 pg Low 27.0-33.0 [facility] Comment on above: Order Comment: No: D o not add to previous draw Performed By: #### 8 [id number] #### [facility] [address] [place] [address], [facility] MCHC (RBC) [Mass/Vol] 29.3 g/dL Low 32.0-35.0 [facility] Comment on above: Order Comment: No: D o not add to previous draw Performed By: #### 8 [id number] #### [facility] [address] [place] [address], [facility] MCV (RBC) [Entitic vol] 91.0 fL Normal 82.0-98.0 [facility] Comment on above: Order Comment: No: D o not add to previous draw Performed By: #### 8 [id number] #### [facility] [address] [place] [address], [facility] Nucleated RBC/100 WBC (Bld) [Ratio] 0 % Normal 0-0 [facility] Comment on above: Order Comment: No: D o not add to previous draw Performed By: #### 8 [id number] #### [facility] [address] [place] [address], [facility] PLAT CNT 276 10*3/uL Normal 150-400 [facility] Comment on above: Order Comment: No: D o not add to previous draw Performed By: #### 8 [id number] #### [facility] [address] [place] [id number], [facility] RBC (Bld) [#/Vol] 3.56 10*6/uL Low 4.20-5.70 [facility] Comment on above: Order Comment: No: D o not add to previous draw Performed By: #### 8 [id number] #### [facility] [address] [place] [address], [facility] WBC (Bld) [#/Vol] 8.61 10*3/uL Normal 4.00-10.60 [facility] Comment on above: Order Comment: No: D o not add to previous draw Performed By: #### 8 [id number] #### [facility] [address] [place] [address], [facility] COMP METABOLIC PANELon 07-22 Albumin [Mass/Vol] 2.7 g/dL Low 3.5-5.7 [facility] Comment on above: Order Comment: No: D o not add to previous draw Performed By: #### 8 [id number] #### [facility] [address] [place] [address], [facility] ALKALINE PHOSPH 70 IU/L Normal 34-104 [facility] Comment on above: Order Comment: No: D o not add to previous draw Performed By: #### 8 [id number] #### [facility] [address] [place] [address], [facility] ALT [Catalytic activity/Vol] 4 U/L Low 7-52 [facility] Comment on above: Order Comment: No: D o not add to previous draw Performed By: #### 8 [id number] #### [facility] [address] [place] [address], [place] AST [Catalytic activity/Vol] 15 U/L Normal 13-39 [facility] Comment on above: Order Comment: No: D o not add to previous draw Performed By: #### 8 [id number] #### [facility] [address] [place] [address], [place] Bilirubin [Mass/Vol] 0.2 mg/dL Low 0.3-1.0 [facility] Comment on above: Order Comment: No: D o not add to previous draw Performed By: #### 8 [id number] #### [facility] [address] [place] [address], [place] Calcium [Mass/Vol] 8.9 mg/dL Normal 8.6-10.3 [facility] Comment on above: Order Comment: No: D o not add to previous draw Performed By: #### 8 [id number] #### [facility] [address] [place] [address], [place] Chloride [Moles/Vol] 109 mmol/L High 98-107 [facility] Comment on above: Order Comment: No: D o not add to previous draw Performed By: #### 8 [id number] #### [facility] [address] [place] [address], [place] CO2 [Moles/Vol] 24 mmol/L Normal 21-31 [facility] Comment on above: Order Comment: No: D o not add to previous draw Performed By: #### 8 [id number] #### [facility] [address] [place] [address], [place] Creatinine [Mass/Vol] 3.39 mg/dL High 0.70-1.30 [facility] Comment on above: Order Comment: No: D o not add to previous draw Performed By: #### 8 [id number] #### [facility] [address] [place] [address], [place] eGFR- 23 ml/min/1.73sq m Abnormal >60 [facility] Comment on above: Order Comment: No: D o not add to previous draw Performed By: #### 8 [id number] #### [facility] [address] [place] [address], [place] eGFR- non- 19 ml/min/1.73sq m Abnormal >60 [facility] Comment on above: Order Comment: No: D o not add to previous draw Performed By: #### 8 [id number] #### [facility] [address] [place] [address], [place] Glucose [Mass/Vol] 90 mg/dL Normal 70-100 [facility] Comment on above: Order Comment: No: D o not add to previous draw Performed By: #### 8 [id number] #### [facility] [address] [place] [address], [place] Potassium [Moles/Vol] 4.4 mmol/L Normal 3.5-5.1 [facility] Comment on above: Order Comment: No: D o not add to previous draw Performed By: #### 8 [id number] #### [facility] [address] [place] [address], [place] Protein [Mass/Vol] 5.9 g/dL Low 6.0-8.3 [facility] Comment on above: Order Comment: No: D o not add to previous draw Performed By: #### 8 [id number] #### [facility] [address] [place] [address], [place] Sodium [Moles/Vol] 140 mmol/L Normal 136-145 [facility] Comment on above: Order Comment: No: D o not add to previous draw Performed By: #### 8 [id number] #### [facility] [address] [place] [address], [place] Urea nitrogen [Mass/Vol] 35 mg/dL High 7-25 [facility] Comment on above: Order Comment: No: D o not add to previous draw Performed By: #### 8 [id number] #### [facility] [address] [place] [address], [facility] POC GLUCOSE LABon 07-22-2020 Glucose [Mass/Vol] 192 mg/dL High 70-100 [facility] Comment on above: Performed By: #### 8 [id number] #### [facility] [address] [place] [address], [place] Glucose [Mass/Vol] 95 mg/dL Normal 70-100 [facility] Comment on above: Performed By: #### 5 [id number], [id number] #### [facility] [address] [place] [address], [place] Glucose [Mass/Vol] 123 mg/dL High 70-100 [facility] Comment on above: Performed By: #### 8 [id number] ####[facility] [place] [address], [facility] ARTERIAL BLOOD GAS WITH ICAo n 07-21-2020 BASE EXCESS -2 mmol/L Normal -2-3 [facility] Comment on above: Performed By: #### 8 [id number] #### [facility] [address] [place] [address], [facility] [employer]ERY SYSTEMS FOCUS Normal [facility] Comment on above: Performed By: #### 8 [id number] #### [facility] [address] [place] [address], [place] HCO3 (Bld) [Moles/Vol] 24 mmol/L Normal 21-28 [facility] Comment on above: Performed By: #### 8 [id number] #### [facility] [address] [place] [address], [place] IONIZED CALCIUM 1.25 mmol/L Normal 1.13-1.32 [facility] Comment on above: Performed By: #### 8 [id number] #### [facility] [address] [place] [address], [facility] LPM 4.0 LPM Normal [facility] Comment on above: Performed By: #### 8 [id number] #### [facility] [address] [facility] [place] [address], [facility] MODALITY BIPAP Normal [facility] Comment on above: Performed By: #### 8 [id number] #### [facility] [address] [address], [facility] Oxygen (Bld) [Partial pressure] 91 mm[Hg] Normal 83-108 [facility] Comment on above: Performed By: #### 8 [id number] #### [facility] [address] [facility]. [address] Oxygen saturation in Blood 95.9 % Normal 94.0-97.0 [facility] Comment on above: Performed By: #### 8 [id number] #### [facility] [address] [facility] [place] [address], [facility] PCO2 47 mmHg High 35-45 [facility] Comment on above: Performed By: #### 8 [id number] #### [facility] [address] [facility] [place] [address], [facility] PEEP 8.0 CMH20 Normal [facility] Comment on above: Performed By: #### 8 [id number] #### [facility] [address] [facility] [place] [address], [facility] pH (Bld) 7.32 [pH] Low 7.35-7.45 [facility] Comment on above: Performed By: #### 8 [id number] #### [facility] [address] [facility] [place] [address], [facility] PRESSURE SUPPORT 16 Normal [facility] Comment on above: Performed By: #### 8 [id number] #### [facility] [address] [facility] [place] [address], [facility] BASE EXCESS -3 mmol/L Low -2-3 [facility] Comment on above: Performed By: #### 3 0318 #### [facility] [address] [place] [address], [facility] [employer] NASAL CANNULA Normal [facility] Comment on above: Performed By: #### 3 0318 #### [facility] [address] [place] [address], [facility] HCO3 (Bld) [Moles/Vol] 25 mmol/L Normal 21-28 [facility] Comment on above: Performed By: #### 3 0318 #### [facility] [address] [place] [address], [facility] IONIZED CALCIUM 1.26 mmol/L Normal 1.13-1.32 [facility] Comment on above: Performed By: #### 3 0318 #### [facility] [address] [place] [address], [facility] LPM 2.0 LPM Normal [facility] Comment on above: Performed By: #### 3 0318 #### [facility] [address] [place] [address], [facility] Oxygen (Bld) [Partial pressure] 92 mm[Hg] Normal 83-108 [facility] Comment on above: Performed By: #### 3 0318 #### [facility] [address] [place] [address], [facility] Oxygen saturation in Blood 95.7 % Normal 94.0-97.0 [facility] Comment on above: Performed By: #### 3 0318 #### [facility] [address] [place] [address], [place] PCO2 54 mmHg High 35-45 [facility] Comment on above: Performed By: #### 3 0318 #### [facility] [address] [place] [address], [place] pH (Bld) 7.27 [pH] Low 7.35-7.45 [facility] Comment on above: Performed By: #### 3 8 #### [facility] [address] [place] [address], [facility] BASIC METABOLIC PANELon 03-2 Calcium [Mass/Vol] 9.0 mg/dL Normal 8.6-10.3 [facility] Comment on above: Order Comment: No: D o not add to previous drawPt not in room rn will return when back. Performed By: #### 3 1943 #### [facility] [address] [place] [address], [facility] Chloride [Moles/Vol] 106 mmol/L Normal 98-107 [facility] Comment on above: Order Comment: No: D o not add to previous drawPt not in room rn will return when back. Performed By: #### 3 1943 #### [facility] [address] [place] [address], [facility] CO2 [Moles/Vol] 25 mmol/L Normal 21-31 [facility] Comment on above: Order Comment: No: D o not add to previous drawPt not in room rn will return when back. Performed By: #### 3 1943 #### [facility] [address] [place] [address], [facility] Creatinine [Mass/Vol] 3.75 mg/dL High 0.70-1.30 [facility] Comment on above: Order Comment: No: D o not add to previous drawPt not in room rn will return when back. Performed By: #### 3 1943 #### [facility] [address] [place] [address], [facility] eGFR- 20 ml/min/1.73sq m Abnormal >60 [facility] Comment on above: Order Comment: No: D o not add to previous drawPt not in room rn will return when back. Performed By: #### 3 1943 #### [facility] [address] eGFR- non- 17 ml/min/1.73sq m Abnormal >60 [facility] Comment on above: Order Comment: No: D o not add to previous drawPt not in room rn will return when back. Performed By: #### 3 1943 #### [facility] [address] [place] [address], [facility] Glucose [Mass/Vol] 132 mg/dL High 70-100 [facility] Comment on above: Order Comment: No: D o not add to previous drawPt not in room rn will return when back. Performed By: #### 3 1943 #### [facility] [address] [place] [address], [facility] Potassium [Moles/Vol] 5.0 mmol/L Normal 3.5-5.1 [facility] Comment on above: Order Comment: No: D o not add to previous drawPt not in room rn will return when back. Performed By: #### 3 1943 #### [facility] [address] [place] [address], [facility] Sodium [Moles/Vol] 138 mmol/L Normal 136-145 [facility] Comment on above: Order Comment: No: D o not add to previous drawPt not in room rn will return when back. Performed By: #### 3 1943 #### [facility] [address] [place] [address], [facility] Urea nitrogen [Mass/Vol] 37 mg/dL High 7-25 [facility] Comment on above: Order Comment: No: D o not add to previous drawPt not in room rn will return when back. Performed By: #### 3 1943 #### [facility] [address] [place] [id number], [facility] CBC COMPLETE BLOOD COUNTon 0 07-21-2020 Erythrocyte distribution width (RBC) [Ratio] 15.0 % Normal 11.5-15.0 [facility] Comment on above: Order Comment: No: D o not add to previous drawPt not in room rn will return when back. Performed By: #### 8 [id number] #### [facility] [address] [place] [address], [facility] Hematocrit (Bld) [Volume fraction] 33.9 % Low 39.0-50.0 [facility] Comment on above: Order Comment: No: D o not add to previous drawPt not in room rn will return when back. Performed By: #### 8 [id number] #### [facility] [address] [place] [address], [facility] Hemoglobin (Bld) [Mass/Vol] 9.9 g/dL Low 13.0-17.0 [facility] Comment on above: Order Comment: No: D o not add to previous drawPt not in room rn will return when back. Performed By: #### 8 [id number] #### [facility] [address] [place] [address], [facility] MCH (RBC) [Entitic mass] 26.9 pg Low 27.0-33.0 [facility] Comment on above: Order Comment: No: D o not add to previous drawPt not in room rn will return when back. Performed By: #### 8 [id number] #### [facility] [address] MCHC (RBC) [Mass/Vol] 29.2 g/dL Low 32.0-35.0 [facility] Comment on above: Order Comment: No: D o not add to previous drawPt not in room rn will return when back. Performed By: #### 8 [id number] #### [facility] [address] [place] [address], [facility] MCV (RBC) [Entitic vol] 92.1 fL Normal 82.0-98.0 [facility] Comment on above: Order Comment: No: D o not add to previous drawPt not in room rn will return when back. Performed By: #### 8 [id number] #### [facility] [address] Nucleated RBC/100 WBC (Bld) [Ratio] 0 % Normal 0-0 [facility] Comment on above: Order Comment: No: D o not add to previous drawPt not in room rn will return when back. Performed By: #### 8 [id number] #### [place] [address], [facility] PLAT CNT 288 10*3/uL Normal 150-400 [facility] Comment on above: Order Comment: No: D o not add to previous drawPt not in room rn will return when back. Performed By: #### 8 [id number] #### [address] RBC (Bld) [#/Vol] 3.68 10*6/uL Low 4.20-5.70 [facility] Comment on above: Order Comment: No: D o not add to previous drawPt not in room rn will return when back. Performed By: #### 8 [id number] #### [address] WBC (Bld) [#/Vol] 9.51 10*3/uL Normal 4.00-10.60 [facility] Comment on above: Order Comment: No: D o not add to previous drawPt not in room rn will return when back. Performed By: #### 8 [id number] #### [address] CHEST WO CONTRASTon 07-21 CT CHEST WO CONTRAST [facility] Department of Radiology [address] [place] [id number] Patient Name: RASHARD LYMAN : 1960 Sex: M Age: Race: White Pt. Location: [address] [place] [address] Patient Status: I Ordered Date: 07/21/2020 6:00:00 [...] pneumonia. Electronically signed: Manuel Saldaña. Transcribed by: [email or web address], User Resident: Electronically Signed by: MANUEL SALDAÑA @ 07/21/2020 08:38 AM Normal [facility] Comment on above: Order Comment: Left Peural Effusion POC GLUCOSE LABon 07-21-2020 Glucose [Mass/Vol] 134 mg/dL High 70-100 [facility] Comment on above: Performed By: #### 5 0103 #### [facility] [address] [place] [address], [place] Glucose [Mass/Vol] 88 mg/dL Normal 70-100 [facility] Comment on above: Performed By: #### 8 [id number] #### [facility] [address] [place] [address], [place] Glucose [Mass/Vol] 110 mg/dL High 70-100 [facility] Comment on above: Performed By: #### 8 [id number] #### [facility] [address] [place] [address], [place] Glucose [Mass/Vol] 118 mg/dL High 70-100 [facility] Comment on above: Performed By: #### 5 7307, [id number] #### [facility] [address] [place] [address], [place] Glucose [Mass/Vol] 137 mg/dL High 70-100 [facility] Comment on above: Performed By: #### 5 7307, [id number] #### [facility] [address] [place] [address], [place] BASIC METABOLIC PANELon 06-28 Calcium [Mass/Vol] 8.4 mg/dL Low 8.6-10.3 [facility] Comment on above: Order Comment: No: D o not add to previous draw Performed By: #### 8 [id number] #### [facility] [address] [place] [address], [place] Chloride [Moles/Vol] 107 mmol/L Normal 98-107 [facility] Comment on above: Order Comment: No: D o not add to previous draw Performed By: #### 8 [id number] #### [facility] [address] [place] [address], [place] CO2 [Moles/Vol] 23 mmol/L Normal 21-31 [facility] Comment on above: Order Comment: No: D o not add to previous draw Performed By: #### 8 [id number] #### [facility] [address] [place] [address], [place] Creatinine [Mass/Vol] 3.95 mg/dL High 0.70-1.30 [facility] Comment on above: Order Comment: No: D o not add to previous draw Performed By: #### 8 [id number] #### [facility] [address] [place] [address], [place] eGFR- 19 ml/min/1.73sq m Abnormal >60 [facility] Comment on above: Order Comment: No: D o not add to previous draw Performed By: #### 8 [id number] #### [facility] [address] [place] [address], [place] eGFR- non- 16 ml/min/1.73sq m Abnormal >60 [facility] Comment on above: Order Comment: No: D o not add to previous draw Performed By: #### 8 [id number] #### [facility] [address] [place] [address], [place] Glucose [Mass/Vol] 110 mg/dL High 70-100 [facility] Comment on above: Order Comment: No: D o not add to previous draw Performed By: #### 8 [id number] #### [facility] [address] [place] [address], [place] Potassium [Moles/Vol] 4.9 mmol/L Normal 3.5-5.1 [facility] Comment on above: Order Comment: No: D o not add to previous draw Performed By: #### 8 [id number] #### [facility] [address] [place] [address], [facility] Sodium [Moles/Vol] 137 mmol/L Normal 136-145 [facility] Comment on above: Order Comment: No: D o not add to previous draw Performed By: #### 8 [id number] #### [facility] [address] Urea nitrogen [Mass/Vol] 37 mg/dL High 7-25 [facility] Comment on above: Order Comment: No: D o not add to previous draw Performed By: #### 8 [id number] #### [facility] [address] CBC W/DIFFon 07-20-2020 ABS IMM GRANS 0.1 10*3/uL Normal 0.0-0.2 [facility] Comment on above: Order Comment: No: D o not add to previous draw Performed By: #### 8 [id number] #### [facility] [address] [place] [address], [facility] ABS NEUTROPHILS 5.9 10*3/uL Normal 1.6-7.6 [facility] Comment on above: Order Comment: No: D o not add to previous draw Performed By: #### 8 [id number] #### [facility] [address] [place] [address], [facility] Basophils (Bld) [#/Vol] 0.1 10*3/uL Normal 0.0-0.2 [facility] Comment on above: Order Comment: No: D o not add to previous draw Performed By: #### 8 [id number] #### [facility] [address] [place] [address], [facility] Basophils/100 WBC (Bld) 1.0 % Normal 0.0-1.0 [facility] Comment on above: Order Comment: No: D o not add to previous draw Performed By: #### 8 [id number] #### [facility] [address] [place] [address], [facility] Eosinophils (Bld) [#/Vol] 0.4 10*3/uL Normal 0.0-0.5 [facility] Comment on above: Order Comment: No: D o not add to previous draw Performed By: #### 8 [id number] #### [facility] [address] [place] [address], [facility] Eosinophils/100 WBC (Bld) 5.1 % Normal 0.0-6.0 [facility] Comment on above: Order Comment: No: D o not add to previous draw Performed By: #### 8 [id number] #### [facility] [address] [place] [address], [facility] Erythrocyte distribution width (RBC) [Ratio] 15.4 % High 11.5-15.0 [facility] Comment on above: Order Comment: No: D o not add to previous draw Performed By: #### 8 [id number] #### [facility] [address] [place] [id number], [facility] Hematocrit (Bld) [Volume fraction] 35.7 % Low 39.0-50.0 [facility] Comment on above: Order Comment: No: D o not add to previous draw Performed By: #### 8 [id number] #### [facility] [address] [place] [address], [facility] Hemoglobin (Bld) [Mass/Vol] 10.3 g/dL Low 13.0-17.0 [facility] Comment on above: Order Comment: No: D o not add to previous draw Performed By: #### 8 [id number] #### [facility] [address] [place] [address], [facility] IMM PLATELET FRAC 0.4 % Low 0.8-6.3 [facility] Comment on above: Order Comment: No: D o not add to previous draw Performed By: #### 8 [id number] #### [facility] [address] [place] [address], [facility] IMMATURE GRANS 1.1 % High 0.0-1.0 [facility] Comment on above: Order Comment: No: D o not add to previous draw Performed By: #### 8 [id number] #### [facility] [address] [place] [address], [facility] Lymphocytes (Bld) [#/Vol] 0.8 10*3/uL Low 1.2-4.0 [facility] Comment on above: Order Comment: No: D o not add to previous draw Performed By: #### 8 [id number] #### [facility] [address] [place] [address], [facility] Lymphocytes/100 WBC (Bld) 9.3 % Low 20.0-45.0 [facility] Comment on above: Order Comment: No: D o not add to previous draw Performed By: #### 8 [id number] #### [facility] [address] [facility] [place] [address], [facility] MCH (RBC) [Entitic mass] 27.4 pg Normal 27.0-33.0 [facility] Comment on above: Order Comment: No: D o not add to previous draw Performed By: #### 8 [id number] #### [facility] [address] [place] [address], [facility] MCHC (RBC) [Mass/Vol] 28.9 g/dL Low 32.0-35.0 [facility] Comment on above: Order Comment: No: D o not add to previous draw Performed By: #### 8 [id number] #### [facility] [address] [place] [address], [facility] MCV (RBC) [Entitic vol] 94.9 fL Normal 82.0-98.0 The [facility] Comment on above: Order Comment: No: D o not add to previous draw Performed By: #### 8 [id number] #### [facility] [address] [place] [address], [facility] Monocytes (Bld) [#/Vol] 1.1 10*3/uL High 0.1-1.0 The [facility] Comment on above: Order Comment: No: D o not add to previous draw Performed By: #### 8 [id number] #### [facility] [address] [place] [address], [facility] MONOS 12.9 % High 5.0-12.0 The [facility] Comment on above: Order Comment: No: D o not add to previous draw Performed By: #### 8 [id number] #### [facility] [address] [place] [id number], [facility] Neutrophils/100 WBC (Bld) 70.6 % Normal 40.0-72.0 The [facility] Comment on above: Order Comment: No: D o not add to previous draw Performed By: #### 8 [id number] #### [facility] [address] [place] [id number], [facility] Nucleated RBC/100 WBC (Bld) [Ratio] 0 % Normal 0-0 The [facility] Comment on above: Order Comment: No: D o not add to previous draw Performed By: #### 8 [id number] #### [facility] [address] [place] [address], [facility] PLAT ESTIMATE Normal Normal The [facility] Comment on above: Order Comment: No: D o not add to previous draw Result Comment: EDTA smear shows platelet clumping, see platelet estimate Performed By: #### 8 [id number] #### [facility] [address] [place] [address], [facility] RBC (Bld) [#/Vol] 3.76 10*6/uL Low 4.20-5.70 The [facility] Comment on above: Order Comment: No: D o not add to previous draw Performed By: #### 8 [id number] #### [facility] [address] [place] [address], [facility] WBC (Bld) [#/Vol] 8.30 10*3/uL Normal 4.00-10.60 The [facility] Comment on above: Order Comment: No: D o not add to previous draw Performed By: #### 8 [id number] #### [facility] [address] [facility] [place] [address], [facility] POC GLUCOSE LABon 07-20-2020 Glucose [Mass/Vol] 110 mg/dL High 70-100 The [facility] Comment on above: Performed By: #### 5 0103 #### [facility] [address] [facility] [place] [address], [facility] Glucose [Mass/Vol] 124 mg/dL High 70-100 The [facility] Comment on above: Performed By: #### 5 0103 #### [address] [place] [address], [facility] Glucose [Mass/Vol] 111 mg/dL High 70-100 The [facility] Comment on above: Performed By: #### 5 7307, [id number] #### [address] PORTABLE CHEST 1 VIEWon 06-28 PORTABLE CHEST 1 VIEW [facility] Department of Radiology [address] [place] [id number] Patient Name: RASHARD LYMAN : 1960 Sex: M Age: Race: White Pt. Location: [address] [place] [address] Patient Status: I Ordered Date: 07/20/2020 6:00:00 [...] unchanged Electronically signed: Manuel Saldaña. Transcribed by: [email or web address], User Resident: Electronically Signed by: MANUEL SALDAÑA @ 07/20/2020 09:07 AM Normal The [facility] Comment on above: Order Comment: Evalu ate for Effusion BASIC METABOLIC PANELon 06-28 Calcium [Mass/Vol] 8.4 mg/dL Low 8.6-10.3 The [facility] Comment on above: Order Comment: No: D o not add to previous draw Performed By: #### 3 1943 #### [facility] [address] [place] [address], [facility] Chloride [Moles/Vol] 104 mmol/L Normal 98-107 The [facility] Comment on above: Order Comment: No: D o not add to previous draw Performed By: #### 3 1943 #### [facility] [address] [place] [address], [place] CO2 [Moles/Vol] 24 mmol/L Normal 21-31 The [facility] Comment on above: Order Comment: No: D o not add to previous draw Performed By: #### 3 1943 #### [facility] [address] [place] [address], [place] Creatinine [Mass/Vol] 4.15 mg/dL High 0.70-1.30 The [facility] Comment on above: Order Comment: No: D o not add to previous draw Performed By: #### 3 1943 #### [facility] [address] [place] [address], [place] eGFR- 18 ml/min/1.73sq m Abnormal >60 The [facility] Comment on above: Order Comment: No: D o not add to previous draw Performed By: #### 3 1943 #### [facility] [address] [place] [address], [place] eGFR- non- 15 ml/min/1.73sq m Abnormal >60 The [facility] Comment on above: Order Comment: No: D o not add to previous draw Performed By: #### 3 1943 #### [facility] [address] [place] [address], [place] Glucose [Mass/Vol] 180 mg/dL High 70-100 The [facility] Comment on above: Order Comment: No: D o not add to previous draw Performed By: #### 3 1943 #### [facility] [address] [place] [address], [place] Potassium [Moles/Vol] 4.4 mmol/L Normal 3.5-5.1 The [facility] Comment on above: Order Comment: No: D o not add to previous draw Performed By: #### 3 1943 #### [facility] [address] [place] [address], [place] Sodium [Moles/Vol] 135 mmol/L Low 136-145 The [facility] Comment on above: Order Comment: No: D o not add to previous draw Performed By: #### 3 1943 #### [facility] [address] [place] [address], [facility] Urea nitrogen [Mass/Vol] 37 mg/dL High 7-25 The [facility] Comment on above: Order Comment: No: D o not add to previous draw Performed By: #### 3 1943 #### [facility] [address] [place] [address], [facility] CBC COMPLETE BLOOD COUNTon 07-19-2020 Erythrocyte distribution width (RBC) [Ratio] 14.8 % Normal 11.5-15.0 The [facility] Comment on above: Order Comment: No: D o not add to previous draw Performed By: #### 8 [id number] #### [facility] [address] [place] [address], [facility] Hematocrit (Bld) [Volume fraction] 30.9 % Low 39.0-50.0 The [facility] Comment on above: Order Comment: No: D o not add to previous draw Performed By: #### 8 [id number] #### [facility] [address] [place] [address], [facility] Hemoglobin (Bld) [Mass/Vol] 9.0 g/dL Low 13.0-17.0 The [facility] Comment on above: Order Comment: No: D o not add to previous draw Performed By: #### 8 [id number] #### [facility] [address] [place] [address], [place] MCH (RBC) [Entitic mass] 26.6 pg Low 27.0-33.0 The [facility] Comment on above: Order Comment: No: D o not add to previous draw Performed By: #### 8 [id number] #### [facility] [address] [place] [address], [place] MCHC (RBC) [Mass/Vol] 29.1 g/dL Low 32.0-35.0 The [facility] Comment on above: Order Comment: No: D o not add to previous draw Performed By: #### 8 [id number] #### [facility] [address] [place] [address], [facility] MCV (RBC) [Entitic vol] 91.4 fL Normal 82.0-98.0 The [facility] Comment on above: Order Comment: No: D o not add to previous draw Performed By: #### 8 [id number] #### [facility] [address] [place] [id number], [facility] Nucleated RBC/100 WBC (Bld) [Ratio] 0 % Normal 0-0 The [facility] Comment on above: Order Comment: No: D o not add to previous draw Performed By: #### 8 [id number] #### [facility] [address] [place] [id number], [place] PLAT CNT 279 10*3/uL Normal 150-400 The [facility] Comment on above: Order Comment: No: D o not add to previous draw Performed By: #### 8 [id number] #### [facility] [address] [place] [address], [facility] RBC (Bld) [#/Vol] 3.38 10*6/uL Low 4.20-5.70 The [facility] Comment on above: Order Comment: No: D o not add to previous draw Performed By: #### 8 [id number] #### [facility] [address] [place] [address], [place] WBC (Bld) [#/Vol] 6.73 10*3/uL Normal 4.00-10.60 The [facility] Comment on above: Order Comment: No: D o not add to previous draw Performed By: #### 8 [id number] #### [facility] [address] [place] [address], [facility] Operative Reporton 1 Operative Report MR#: [id number] I [facility] Pt. 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 [facility]. [facility] [address] Normal The [facility] POC GLUCOSE LABon 07-19-2020 Glucose [Mass/Vol] 219 mg/dL High 70-100 The [facility] Comment on above: Performed By: #### 5 7307, 08655 #### [facility] [address] [place] [address], [place] Glucose [Mass/Vol] 152 mg/dL High 70-100 The [facility] Comment on above: Performed By: #### 5 7307, 07685 #### [facility] [address] [place] [address], [place] Glucose [Mass/Vol] 183 mg/dL High 70-100 The [facility] Comment on above: Performed By: #### 5 0103 #### [facility] [address] [place] [address], [place] Glucose [Mass/Vol] 206 mg/dL High 70-100 The [facility] Comment on above: Performed By: #### 8 [id number] ####[facility] [place] [address], [place] Glucose [Mass/Vol] 179 mg/dL High 70-100 The [facility] Comment on above: Performed By: #### 5 0103 #### [address] PORTABLE CHEST 1 VIEWon 06-28 PORTABLE CHEST 1 VIEW [facility] Department of Radiology [address] [place] [address] [place] [id number] Patient Name: RASHARD LYMAN : 1960 Sex: M Age: Race: White Pt. Location: [address] [place] [address] Patient Status: I Ordered Date: 07/19/2020 2:20:00 [...] infiltration Electronically signed: Pedro Baldwin. Transcribed by: [email or web address], User Resident: PEDRO BALDWIN Electronically Signed by: PEDRO BALDWIN @ 07/19/2020 03:03 PM I personally read this/these film(s) with this resident Normal The [facility] Comment on above: Order Comment: Check Chest Tube Position BASIC METABOLIC PANELon 06-28 Calcium [Mass/Vol] 8.4 mg/dL Low 8.6-10.3 The [facility] Comment on above: Order Comment: No: D o not add to previous draw Performed By: #### 8 [id number] #### [facility] [address] [place] [address], [place] Chloride [Moles/Vol] 105 mmol/L Normal 98-107 The [facility] Comment on above: Order Comment: No: D o not add to previous draw Performed By: #### 8 [id number] #### [facility] [address] [place] [address], [place] CO2 [Moles/Vol] 25 mmol/L Normal 21-31 The [facility] Comment on above: Order Comment: No: D o not add to previous draw Performed By: #### 8 [id number] #### [facility] [address] [place] [address], [place] Creatinine [Mass/Vol] 4.54 mg/dL High 0.70-1.30 The [facility] Comment on above: Order Comment: No: D o not add to previous draw Performed By: #### 8 [id number] #### [facility] [address] [place] [address], [place] eGFR- 16 ml/min/1.73sq m Abnormal >60 The [facility] Comment on above: Order Comment: No: D o not add to previous draw Performed By: #### 8 [id number] #### [facility] [address] [place] [address], [place] eGFR- non- 13 ml/min/1.73sq m Abnormal >60 The [facility] Comment on above: Order Comment: No: D o not add to previous draw Performed By: #### 8 [id number] #### [facility] [address] [place] [address], [facility] Glucose [Mass/Vol] 118 mg/dL High 70-100 The [facility] Comment on above: Order Comment: No: D o not add to previous draw Performed By: #### 8 [id number] #### [facility] [address] [place] [address], [facility] Potassium [Moles/Vol] 4.5 mmol/L Normal 3.5-5.1 The [facility] Comment on above: Order Comment: No: D o not add to previous draw Performed By: #### 8 [id number] #### [facility] [address] [place] [id number], [facility] Sodium [Moles/Vol] 137 mmol/L Normal 136-145 The [facility] Comment on above: Order Comment: No: D o not add to previous draw Performed By: #### 8 [id number] #### [facility] [address] [place] [address], [facility] Urea nitrogen [Mass/Vol] 40 mg/dL High 7-25 The [facility] Comment on above: Order Comment: No: D o not add to previous draw Performed By: #### 8 [id number] #### [facility] [address] [place] [address], [facility] CBC W/DIFFon 07-18-2020 ABS IMM GRANS 0.1 10*3/uL Normal 0.0-0.2 The [facility] Comment on above: Order Comment: No: D o not add to previous draw Performed By: #### 8 [id number] #### [facility] [address] [place] [id number], [facility] ABS NEUTROPHILS 5.0 10*3/uL Normal 1.6-7.6 The [facility] Comment on above: Order Comment: No: D o not add to previous draw Performed By: #### 8 [id number] #### [facility] [address] [place] [address], [facility] Basophils (Bld) [#/Vol] 0.0 10*3/uL Normal 0.0-0.2 The [facility] Comment on above: Order Comment: No: D o not add to previous draw Performed By: #### 8 [id number] #### [facility] [address] [place] [address], [facility] Basophils/100 WBC (Bld) 0.4 % Normal 0.0-1.0 The [facility] Comment on above: Order Comment: No: D o not add to previous draw Performed By: #### 8 [id number] #### [facility] [address] [place] [address], [facility] Eosinophils (Bld) [#/Vol] 0.6 10*3/uL High 0.0-0.5 The [facility] Comment on above: Order Comment: No: D o not add to previous draw Performed By: #### 8 [id number] #### [facility] [address] [place] [id number], [facility] Eosinophils/100 WBC (Bld) 6.8 % High 0.0-6.0 The [facility] Comment on above: Order Comment: No: D o not add to previous draw Performed By: #### 8 [id number] #### [facility] [address] [place] [address], [facility] Erythrocyte distribution width (RBC) [Ratio] 14.8 % Normal 11.5-15.0 The [facility] Comment on above: Order Comment: No: D o not add to previous draw Performed By: #### 8 [id number] #### [facility] [address] [place] [address], [facility] Hematocrit (Bld) [Volume fraction] 31.9 % Low 39.0-50.0 The [facility] Comment on above: Order Comment: No: D o not add to previous draw Performed By: #### 8 [id number] #### [facility] [address] [place] [address], [facility] Hemoglobin (Bld) [Mass/Vol] 9.4 g/dL Low 13.0-17.0 The [facility] Comment on above: Order Comment: No: D o not add to previous draw Performed By: #### 8 [id number] #### [facility] [address] [place] [address], [facility] IMMATURE GRANS 1.7 % High 0.0-1.0 The [facility] Comment on above: Order Comment: No: D o not add to previous draw Performed By: #### 8 [id number] #### [facility] [address] [facility] [place] [address], [facility] Lymphocytes (Bld) [#/Vol] 1.2 10*3/uL Normal 1.2-4.0 The [facility] Comment on above: Order Comment: No: D o not add to previous draw Performed By: #### 8 [id number] #### [facility] [address] [facility] [place] [address], [facility] Lymphocytes/100 WBC (Bld) 14.8 % Low 20.0-45.0 The [facility] Comment on above: Order Comment: No: D o not add to previous draw Performed By: #### 8 [id number] #### [facility] [address] [place] [address], [facility] MCH (RBC) [Entitic mass] 26.9 pg Low 27.0-33.0 The [facility] Comment on above: Order Comment: No: D o not add to previous draw Performed By: #### 8 [id number] #### [facility] [address] [facility] [place] [address], [facility] MCHC (RBC) [Mass/Vol] 29.5 g/dL Low 32.0-35.0 The [facility] Comment on above: Order Comment: No: D o not add to previous draw Performed By: #### 8 [id number] #### [facility] [address] [place] [address], [facility] MCV (RBC) [Entitic vol] 91.1 fL Normal 82.0-98.0 The [facility] Comment on above: Order Comment: No: D o not add to previous draw Performed By: #### 8 [id number] #### [facility] [address] [place] [address], [facility] Monocytes (Bld) [#/Vol] 1.1 10*3/uL High 0.1-1.0 The [facility] Comment on above: Order Comment: No: D o not add to previous draw Performed By: #### 8 [id number] #### [facility] [address] [place] [id number], [facility] MONOS 13.4 % High 5.0-12.0 The [facility] Comment on above: Order Comment: No: D o not add to previous draw Performed By: #### 8 [id number] #### [facility] [address] [place] [address], [facility] Neutrophils/100 WBC (Bld) 62.9 % Normal 40.0-72.0 The [facility] Comment on above: Order Comment: No: D o not add to previous draw Performed By: #### 8 [id number] #### [facility] [address] [place] [address], [facility] Nucleated RBC/100 WBC (Bld) [Ratio] 0 % Normal 0-0 The [facility] Comment on above: Order Comment: No: D o not add to previous draw Performed By: #### 8 [id number] #### [facility] [address] [place] [address], [place] PLAT CNT 296 10*3/uL Normal 150-400 The [facility] Comment on above: Order Comment: No: D o not add to previous draw Performed By: #### 8 [id number] #### [facility] [address] [place] [address], [place] RBC (Bld) [#/Vol] 3.50 10*6/uL Low 4.20-5.70 The [facility] Comment on above: Order Comment: No: D o not add to previous draw Performed By: #### 8 [id number] #### [facility] [address] [place] [address], [place] WBC (Bld) [#/Vol] 8.03 10*3/uL Normal 4.00-10.60 The [facility] Comment on above: Order Comment: No: D o not add to previous draw Performed By: #### 8 [id number] #### [facility] [address] [place] [address], [place] POC GLUCOSE LABon 07-18-2020 Glucose [Mass/Vol] 192 mg/dL High 70-100 The [facility] Comment on above: Performed By: #### 5 7307, 66303 #### [facility] [address] [place] [address], [place] Glucose [Mass/Vol] 153 mg/dL High 70-100 The [facility] Comment on above: Performed By: #### 5 7307, 92198 #### [facility] [address] [place] [address], [place] Glucose [Mass/Vol] 80 mg/dL Normal 70-100 The [facility] Comment on above: Performed By: #### 5 7307, 57202 #### [facility] [address] [place] [address], [place] Glucose [Mass/Vol] 48 mg/dL Critically low 70-100 Th e [facility] Comment on above: Order Comment: Left Peural Effusion Performed By: #### 8 [id number] ####[facility] [place] [address], [place] Glucose [Mass/Vol] 120 mg/dL High 70-100 The [facility] Comment on above: Performed By: #### 5 0103 #### [facility] [address] [facility]. [address] Glucose [Mass/Vol] 112 mg/dL High 70-100 The [facility] Comment on above: Performed By: #### 5 7307, 45871 #### [facility] [address] [facility]. [address] POC SARS COV2 ANTIGEN NEGATI VEon 07-18-2020 POC SARS COV2 ANTIGEN NEG CANCELED Normal NEGATIVE The [facility] Comment on above: Result Comment: The released value NEGATIVE was canceled by [email or web address] on 07/19/2020 07:11 Performed By: #### 3 1944 #### [facility] [address] POC SARS COV2 ANTIGEN NEG Negative Normal NEGATIVE The [facility] Comment on above: Result Comment: Nega tive [...] Accreditation. Performed By: #### 8 [id number] #### [facility] [address] [facility]. [address] BASIC METABOLIC PANELon 03-2 Calcium [Mass/Vol] 8.2 mg/dL Low 8.6-10.3 The [facility] Comment on above: Order Comment: No: D o not add to previous draw Performed By: #### 3 1943 #### [facility] [address] [place] [address], [place] Chloride [Moles/Vol] 101 mmol/L Normal 98-107 [facility] Comment on above: Order Comment: No: D o not add to previous draw Performed By: #### 3 1943 #### [facility] [address] [place] [address], [place] CO2 [Moles/Vol] 25 mmol/L Normal 21-31 [facility] Comment on above: Order Comment: No: D o not add to previous draw Performed By: #### 3 1943 #### [facility] [address] [place] [address], [place] Creatinine [Mass/Vol] 3.64 mg/dL High 0.70-1.30 [facility] Comment on above: Order Comment: No: D o not add to previous draw Performed By: #### 3 1943 #### [facility] [address] [place] [address], [place] eGFR- 21 ml/min/1.73sq m Abnormal >60 [facility] Comment on above: Order Comment: No: D o not add to previous draw Performed By: #### 3 1943 #### [facility] [address] [place] [address], [place] eGFR- non- 17 ml/min/1.73sq m Abnormal >60 [facility] Comment on above: Order Comment: No: D o not add to previous draw Performed By: #### 3 1943 #### [facility] [address] [place] [address], [place] Glucose [Mass/Vol] 124 mg/dL High 70-100 [facility] Comment on above: Order Comment: No: D o not add to previous draw Performed By: #### 3 1943 #### [facility] [address] [place] [address], [facility] Potassium [Moles/Vol] 4.3 mmol/L Normal 3.5-5.1 [facility] Comment on above: Order Comment: No: D o not add to previous draw Performed By: #### 3 1943 #### [facility] [address] [place] [address], [facility] Sodium [Moles/Vol] 134 mmol/L Low 136-145 [facility] Comment on above: Order Comment: No: D o not add to previous draw Performed By: #### 3 1943 #### [facility] [address] [place] [address], [facility] Urea nitrogen [Mass/Vol] 36 mg/dL High 7-25 [facility] Comment on above: Order Comment: No: D o not add to previous draw Performed By: #### 3 1943 #### [facility] [address] [facility] [place] [address], [facility] CBC W/DIFFon 07-17-2020 ABS IMM GRANS 0.2 10*3/uL Normal 0.0-0.2 [facility] Comment on above: Order Comment: No: D o not add to previous draw Performed By: #### 8 [id number] #### [facility] [address] [facility] [place] [address], [facility] ABS NEUTROPHILS 5.8 10*3/uL Normal 1.6-7.6 [facility] Comment on above: Order Comment: No: D o not add to previous draw Performed By: #### 8 [id number] #### [facility] [address] [place] [address], [facility] Basophils (Bld) [#/Vol] 0.1 10*3/uL Normal 0.0-0.2 [facility] Comment on above: Order Comment: No: D o not add to previous draw Performed By: #### 8 [id number] #### [facility] [address] [place] [address], [facility] Basophils/100 WBC (Bld) 0.6 % Normal 0.0-1.0 [facility] Comment on above: Order Comment: No: D o not add to previous draw Performed By: #### 8 [id number] #### [facility] [address] [place] [address], [facility] Eosinophils (Bld) [#/Vol] 0.6 10*3/uL High 0.0-0.5 [facility] Comment on above: Order Comment: No: D o not add to previous draw Performed By: #### 8 [id number] #### [facility] [address] [place] [address], [facility] Eosinophils/100 WBC (Bld) 7.0 % High 0.0-6.0 [facility] Comment on above: Order Comment: No: D o not add to previous draw Performed By: #### 8 [id number] #### [facility] [address] [place] [address], [facility] Erythrocyte distribution width (RBC) [Ratio] 14.8 % Normal 11.5-15.0 [facility] Comment on above: Order Comment: No: D o not add to previous draw Performed By: #### 8 [id number] #### [facility] [address] [place] [address], [facility] Hematocrit (Bld) [Volume fraction] 30.0 % Low 39.0-50.0 [facility] Comment on above: Order Comment: No: D o not add to previous draw Performed By: #### 8 [id number] #### [facility] [address] [place] [address], [facility] Hemoglobin (Bld) [Mass/Vol] 9.2 g/dL Low 13.0-17.0 [facility] Comment on above: Order Comment: No: D o not add to previous draw Performed By: #### 8 [id number] #### [facility] [address] [place] [address], [facility] IMMATURE GRANS 1.7 % High 0.0-1.0 [facility] Comment on above: Order Comment: No: D o not add to previous draw Performed By: #### 8 [id number] #### [facility] [address] [place] [address], [facility] Lymphocytes (Bld) [#/Vol] 1.3 10*3/uL Normal 1.2-4.0 [facility] Comment on above: Order Comment: No: D o not add to previous draw Performed By: #### 8 [id number] #### [facility] [address] [place] [address], [facility] Lymphocytes/100 WBC (Bld) 14.3 % Low 20.0-45.0 [facility] Comment on above: Order Comment: No: D o not add to previous draw Performed By: #### 8 [id number] #### [facility] [address] [facility] [place] [address], [facility] MCH (RBC) [Entitic mass] 27.3 pg Normal 27.0-33.0 [facility] Comment on above: Order Comment: No: D o not add to previous draw Performed By: #### 8 [id number] #### [facility] [address] [place] [address], [facility] MCHC (RBC) [Mass/Vol] 30.7 g/dL Low 32.0-35.0 [facility] Comment on above: Order Comment: No: D o not add to previous draw Performed By: #### 8 [id number] #### [facility] [address] [place] [address], [facility] MCV (RBC) [Entitic vol] 89.0 fL Normal 82.0-98.0 [facility] Comment on above: Order Comment: No: D o not add to previous draw Performed By: #### 8 [id number] #### [facility] [address] [place] [address], [facility] Monocytes (Bld) [#/Vol] 1.0 10*3/uL Normal 0.1-1.0 [facility] Comment on above: Order Comment: No: D o not add to previous draw Performed By: #### 8 [id number] #### [facility] [address] [place] [address], [facility] MONOS 10.9 % Normal 5.0-12.0 [facility] Comment on above: Order Comment: No: D o not add to previous draw Performed By: #### 8 [id number] #### [facility] [address] [place] [address], [facility] Neutrophils/100 WBC (Bld) 65.5 % Normal 40.0-72.0 [facility] Comment on above: Order Comment: No: D o not add to previous draw Performed By: #### 8 [id number] #### [facility] [address] [place] [id number], [facility] Nucleated RBC/100 WBC (Bld) [Ratio] 0 % Normal 0-0 [facility] Comment on above: Order Comment: No: D o not add to previous draw Performed By: #### 8 [id number] #### [facility] [address] [place] [id number], [facility] PLAT CNT 293 10*3/uL Normal 150-400 [facility] Comment on above: Order Comment: No: D o not add to previous draw Performed By: #### 8 [id number] #### [facility] [address] [place] [id number], [facility] RBC (Bld) [#/Vol] 3.37 10*6/uL Low 4.20-5.70 [facility] Comment on above: Order Comment: No: D o not add to previous draw Performed By: #### 8 [id number] #### [facility] [address] [place] [address], [place] WBC (Bld) [#/Vol] 8.86 10*3/uL Normal 4.00-10.60 [facility] Comment on above: Order Comment: No: D o not add to previous draw Performed By: #### 8 [id number] #### [facility] [address] [place] [address], [place] POC GLUCOSE LABon 07-17-2020 Glucose [Mass/Vol] 101 mg/dL High 70-100 [facility] Comment on above: Performed By: #### 5 [id number], [id number] #### [facility] [address] [place] [address], [place] Glucose [Mass/Vol] 76 mg/dL Normal 70-100 [facility] Comment on above: Performed By: #### 5 7307, [id number] #### [facility] [address] [place] [address], [place] Glucose [Mass/Vol] 75 mg/dL Normal 70-100 [facility] Comment on above: Performed By: #### 8 [id number] ####[facility] [place] [address], [place] Glucose [Mass/Vol] 198 mg/dL High 70-100 [facility] Comment on above: Performed By: #### 8 [id number] ####[facility] [place] [address], [place] Glucose [Mass/Vol] 205 mg/dL High 70-100 [facility] Comment on above: Performed By: #### 3 0318 #### [facility] [address] [place] [address], [place] Glucose [Mass/Vol] 187 mg/dL High 70-100 [facility] Comment on above: Performed By: #### 5 [id number], [id number] #### [facility] [address] [place] [address], [place] Glucose [Mass/Vol] 131 mg/dL High 70-100 [facility] Comment on above: Performed By: #### 8 [id number] #### [facility] [address] [place] [address], [place] Glucose [Mass/Vol] 75 mg/dL Normal 70-100 [facility] Comment on above: Performed By: #### 5 0103 #### [facility] [address] [place] [address], [place] Glucose [Mass/Vol] 69 mg/dL Low 70-100 [facility] Comment on above: Performed By: #### 8 [id number] ####[facility] [address], [facility] BASIC METABOLIC PANELon 03-2 0-2020 Calcium [Mass/Vol] 8.4 mg/dL Low 8.6-10.3 [facility] Comment on above: Order Comment: No: D o not add to previous draw Performed By: #### 3 1943 #### [facility] [address] [place] [address], [place] Chloride [Moles/Vol] 105 mmol/L Normal 98-107 [facility] Comment on above: Order Comment: No: D o not add to previous draw Performed By: #### 3 1943 #### [facility] [address] [place] [address], [place] CO2 [Moles/Vol] 24 mmol/L Normal 21-31 [facility] Comment on above: Order Comment: No: D o not add to previous draw Performed By: #### 3 1943 #### [facility] [address] [place] [address], [place] Creatinine [Mass/Vol] 4.14 mg/dL High 0.70-1.30 [facility] Comment on above: Order Comment: No: D o not add to previous draw Performed By: #### 3 1943 #### [facility] [address] [place] [address], [place] eGFR- 18 ml/min/1.73sq m Abnormal >60 [facility] Comment on above: Order Comment: No: D o not add to previous draw Performed By: #### 3 1943 #### [facility] [address] [place] [address], [place] eGFR- non- 15 ml/min/1.73sq m Abnormal >60 [facility] Comment on above: Order Comment: No: D o not add to previous draw Performed By: #### 3 1943 #### [facility] [address] [place] [address], [place] Glucose [Mass/Vol] 127 mg/dL High 70-100 [facility] Comment on above: Order Comment: No: D o not add to previous draw Performed By: #### 3 1943 #### [facility] [address] [place] [address], [place] Potassium [Moles/Vol] 4.0 mmol/L Normal 3.5-5.1 [facility] Comment on above: Order Comment: No: D o not add to previous draw Performed By: #### 3 1943 #### [facility] [address] [place] [address], [place] Sodium [Moles/Vol] 136 mmol/L Normal 136-145 [facility] Comment on above: Order Comment: No: D o not add to previous draw Performed By: #### 3 1943 #### [facility] [address] [place] [address], [place] Urea nitrogen [Mass/Vol] 35 mg/dL High 7-25 [facility] Comment on above: Order Comment: No: D o not add to previous draw Performed By: #### 3 1943 #### [facility] [address] [place] [address], [place] CBC COMPLETE BLOOD COUNTon 0 3-20-2021 Erythrocyte distribution width (RBC) [Ratio] 14.6 % Normal 11.5-15.0 [facility] Comment on above: Order Comment: No: D o not add to previous draw Performed By: #### 8 [id number] #### [facility] [address] [place] [address], [facility] Hematocrit (Bld) [Volume fraction] 31.8 % Low 39.0-50.0 [facility] Comment on above: Order Comment: No: D o not add to previous draw Performed By: #### 8 [id number] #### [facility] [address] [place] [address], [facility] Hemoglobin (Bld) [Mass/Vol] 9.7 g/dL Low 13.0-17.0 [facility] Comment on above: Order Comment: No: D o not add to previous draw Performed By: #### 8 [id number] #### [facility] [address] [place] [address], [facility] MCH (RBC) [Entitic mass] 27.2 pg Normal 27.0-33.0 [facility] Comment on above: Order Comment: No: D o not add to previous draw Performed By: #### 8 [id number] #### [facility] [address] [place] [address], [facility] MCHC (RBC) [Mass/Vol] 30.5 g/dL Low 32.0-35.0 [facility] Comment on above: Order Comment: No: D o not add to previous draw Performed By: #### 8 [id number] #### [facility] [address] [place] [address], [place] MCV (RBC) [Entitic vol] 89.3 fL Normal 82.0-98.0 [facility] Comment on above: Order Comment: No: D o not add to previous draw Performed By: #### 8 [id number] #### [facility] [address] [place] [address], [place] Nucleated RBC/100 WBC (Bld) [Ratio] 0 % Normal 0-0 [facility] Comment on above: Order Comment: No: D o not add to previous draw Performed By: #### 8 [id number] #### [facility] [address] [place] [address], [place] PLAT CNT 321 10*3/uL Normal 150-400 [facility] Comment on above: Order Comment: No: D o not add to previous draw Performed By: #### 8 [id number] #### [facility] [address] [place] [address], [place] RBC (Bld) [#/Vol] 3.56 10*6/uL Low 4.20-5.70 [facility] Comment on above: Order Comment: No: D o not add to previous draw Performed By: #### 8 [id number] #### [facility] [address] [place] [address], [place] WBC (Bld) [#/Vol] 8.88 10*3/uL Normal 4.00-10.60 [facility] Comment on above: Order Comment: No: D o not add to previous draw Performed By: #### 8 [id number] #### [facility] [address] [place] [address], [place] POC GLUCOSE LABon 07-16-2020 Glucose [Mass/Vol] 94 mg/dL Normal 70-100 [facility] Comment on above: Performed By: #### 5 0103 #### [facility] [address] [place] [address], [place] Glucose [Mass/Vol] 62 mg/dL Low 70-100 [facility] Comment on above: Performed By: #### 5 7307, [id number] #### [facility] [address] [place] [address], [place] Glucose [Mass/Vol] 80 mg/dL Normal 70-100 [facility] Comment on above: Performed By: #### 5 7307, [id number] #### [facility] [address] [place] [address], [facility] Glucose [Mass/Vol] 99 mg/dL Normal 70-100 [facility] Comment on above: Performed By: #### 8 [id number] ####[facility] [place] [address], [place] Glucose [Mass/Vol] 203 mg/dL High 70-100 [facility] Comment on above: Performed By: #### 8 [id number] ####[facility] [place] [address], [place] Glucose [Mass/Vol] 151 mg/dL High 70-100 [facility] Comment on above: Performed By: #### 5 7307, 53592 #### [facility] [address] [place] [address], [facility] ANAon 07-15-2020 KILLIAN SCREEN <1:40 Normal <1:40,1:40 [facility] Comment on above: Order Comment: No: D o not add to previous draw Performed By: #### 8 [id number] #### [facility] [address] [facility] [place] [address], [facility] ANCA IGG WITH REFLEX [id number] on 07-15-2020 ANCA <1:20 Normal <1:20 [facility] Comment on above: Order Comment: No: D [...] collagen vascular disease or arthritis. Performed By: [facility] [address] [place] [address] Grocery Associate: Emi Campbell MD BASIC METABOLIC PANELon 06-27 Calcium [Mass/Vol] 8.5 mg/dL Low 8.6-10.3 [facility] Comment on above: Order Comment: No: D o not add to previous draw Performed By: #### 8 [id number] #### [facility] [address] [place] [address], [place] Chloride [Moles/Vol] 103 mmol/L Normal 98-107 [facility] Comment on above: Order Comment: No: D o not add to previous draw Performed By: #### 8 [id number] #### [facility] [address] [place] [address], [place] CO2 [Moles/Vol] 23 mmol/L Normal 21-31 [facility] Comment on above: Order Comment: No: D o not add to previous draw Performed By: #### 8 [id number] #### [facility] [address] [place] [address], [place] Creatinine [Mass/Vol] 4.38 mg/dL High 0.70-1.30 [facility] Comment on above: Order Comment: No: D o not add to previous draw Performed By: #### 8 [id number] #### [facility] [address] [place] [address], [facility] eGFR- 17 ml/min/1.73sq m Abnormal >60 [facility] Comment on above: Order Comment: No: D o not add to previous draw Performed By: #### 8 [id number] #### [facility] [address] [place] [address], [place] eGFR- non- 14 ml/min/1.73sq m Abnormal >60 [facility] Comment on above: Order Comment: No: D o not add to previous draw Performed By: #### 8 [id number] #### [facility] [address] [place] [address], [place] Glucose [Mass/Vol] 154 mg/dL High 70-100 [facility] Comment on above: Order Comment: No: D o not add to previous draw Performed By: #### 8 [id number] #### [facility] [address] Potassium [Moles/Vol] 4.5 mmol/L Normal 3.5-5.1 [facility] Comment on above: Order Comment: No: D o not add to previous draw Performed By: #### 8 [id number] #### [facility] [address] Sodium [Moles/Vol] 135 mmol/L Low 136-145 [facility] Comment on above: Order Comment: No: D o not add to previous draw Performed By: #### 8 [id number] #### [facility] [address] [facility]. [address] Urea nitrogen [Mass/Vol] 32 mg/dL High 7-25 [facility] Comment on above: Order Comment: No: D o not add to previous draw Performed By: #### 8 [id number] #### [facility] [address] C REACTIVE PROTEINon 021 CRP [Mass/Vol] 138.0 mg/L High 0.0-7.0 [facility] Comment on above: Order Comment: FROM [id number] Performed By: #### 8 [id number] #### [facility] [address] [facility] [address] CBC W/DIFFon 07-15-2020 ABS IMM GRANS 0.1 10*3/uL Normal 0.0-0.2 [facility] Comment on above: Performed By: #### 5 0103 #### [facility] [address] [facility] [place] [address], [facility] ABS NEUTROPHILS 7.3 10*3/uL Normal 1.6-7.6 [facility] Comment on above: Performed By: #### 5 0103 #### [facility] [address] [place] [address], [facility] Basophils (Bld) [#/Vol] 0.0 10*3/uL Normal 0.0-0.2 [facility] Comment on above: Performed By: #### 5 0103 #### [facility] [address] [place] [address], [facility] Basophils/100 WBC (Bld) 0.3 % Normal 0.0-1.0 [facility] Comment on above: Performed By: #### 5 0103 #### [facility] [address] [place] [address], [facility] Eosinophils (Bld) [#/Vol] 0.5 10*3/uL Normal 0.0-0.5 [facility] Comment on above: Performed By: #### 5 0103 #### [facility] [address] [place] [address], [facility] Eosinophils/100 WBC (Bld) 5.1 % Normal 0.0-6.0 [facility] Comment on above: Performed By: #### 5 0103 #### [facility] [address] Erythrocyte distribution width (RBC) [Ratio] 14.9 % Normal 11.5-15.0 [facility] Comment on above: Performed By: #### 5 3 #### [facility] [address] [place] [address], [facility] Hematocrit (Bld) [Volume fraction] 33.0 % Low 39.0-50.0 [facility] Comment on above: Performed By: #### 5 0103 #### [facility] [address] [place] [address], [facility] [facility] SERVICES Hemoglobin (Bld) [Mass/Vol] 9.9 g/dL Low 13.0-17.0 [facility] Comment on above: Performed By: #### 5 3 #### [facility] [address] IMMATURE GRANS 1.4 % High 0.0-1.0 [facility] Comment on above: Performed By: #### 5 0103 #### [facility] [address] Lymphocytes (Bld) [#/Vol] 1.1 10*3/uL Low 1.2-4.0 [facility] Comment on above: Performed By: #### 5 0103 #### [facility] [address] Lymphocytes/100 WBC (Bld) 11.0 % Low 20.0-45.0 [facility] Comment on above: Performed By: #### 5 0103 #### [facility] [address] [facility]. [address] MCH (RBC) [Entitic mass] 27.0 pg Normal 27.0-33.0 [facility] Comment on above: Performed By: #### 5 0103 #### [facility] [address] MCHC (RBC) [Mass/Vol] 30.0 g/dL Low 32.0-35.0 [facility] Comment on above: Performed By: #### 5 3 #### [facility] [address] MCV (RBC) [Entitic vol] 90.2 fL Normal 82.0-98.0 [facility] Comment on above: Performed By: #### 5 3 #### [facility] [address] [place] [address], [facility] Monocytes (Bld) [#/Vol] 1.1 10*3/uL High 0.1-1.0 [facility] Comment on above: Performed By: #### 5 3 #### [facility] [address] [place] [address], [facility] MONOS 10.9 % Normal 5.0-12.0 [facility] Comment on above: Performed By: #### 5 0103 #### [facility] [address] [place] [address], [facility] Neutrophils/100 WBC (Bld) 71.3 % Normal 40.0-72.0 [facility] Comment on above: Performed By: #### 5 0103 #### [facility] [address] [facility] [place] [address], [facility] Nucleated RBC/100 WBC (Bld) [Ratio] 0 % Normal 0-0 [facility] Comment on above: Performed By: #### 5 0103 #### [facility] [address] [facility] [place] [address], [facility] PLAT CNT 317 10*3/uL Normal 150-400 [facility] Comment on above: Performed By: #### 5 0103 #### [facility] [address] [facility] [place] [id number], [facility] RBC (Bld) [#/Vol] 3.66 10*6/uL Low 4.20-5.70 [facility] Comment on above: Performed By: #### 5 0103 #### [facility] [address] [facility]. [place] [id number], [facility] WBC (Bld) [#/Vol] 10.23 10*3/uL Normal 4.00-10.60 [facility] Comment on above: Performed By: #### 5 0103 #### [facility] [address] [place] [address], [facility] COMPLEMENT 307-15-2020 COMPLEMENT 3 108 mg/dL Normal 79-152 [facility] Comment on above: Order Comment: No: D o not add to previous draw Performed By: #### 8 [id number] #### [facility] [address] [facility] [place] [address], [facility] COMPLEMENT 4on 07-15-2020 COMPLEMENT 4 31 mg/dL Normal 16-38 [facility] Comment on above: Order Comment: No: D o not add to previous draw Performed By: #### 8 [id number] #### [facility] [address] [place] [address], [facility] GLOMR BASMT MEMBRon 07-16-19 21 GLOMR BASMT MBRN Negative Abnormal NEGATIVE [facility] Comment on above: Order Comment: No: D o not add to previous draw Result Comment: Note : The performance characteristics of this test were validated by the [facility] Immunology laboratory. It has not been cleared or approved by the U.S. Food and Drug Administration. The results are not intended to be used as the sole means for clinical diagnosis or patient management decisions. [facility]'s Immunology lab is authorized under CLIA to perform high-complexity testing. Performed By: #### 8 [id number] #### [facility] [address] [place] [address], [facility] POC GLUCOSE LABon 07-15-2020 Glucose [Mass/Vol] 107 mg/dL High 70-100 [facility] Comment on above: Performed By: #### 5 7307, [id number] #### [facility] [address] [place] [address], [place] Glucose [Mass/Vol] 84 mg/dL Normal 70-100 [facility] Comment on above: Performed By: #### 5 0103 #### [facility] [address] [place] [address], [place] Glucose [Mass/Vol] 164 mg/dL High 70-100 [facility] Comment on above: Performed By: #### 8 [id number] ####[facility] [place] [address], [place] Glucose [Mass/Vol] 141 mg/dL High 70-100 [facility] Comment on above: Performed By: #### 5 7307, [id number] #### [facility] [address] [place] [address], [place] PORTABLE CHEST 1 VIEWon 06-27 PORTABLE CHEST 1 VIEW [facility] Department of Radiology [address] [place] [id number] Patient Name: RASHARD LYMAN : 1960 Sex: M Age: Race: White Pt. Location: [id number] Patient Status: I Ordered Date: 07/15/2020 7:00:00 [...] exam. Electronically signed: Nir Swartz. Transcribed by: [email or web address], User Resident: Electronically Signed by: NIR SWARTZ @ 07/15/2020 07:34 AM Normal [facility] Comment on above: Order Comment: evalu ate for Effusion *AFB CULTUREon 07-14-2020 *AFB CULTURE Clinical Report: (D) Specimen/Source: FLUID/PLEURAL FLUID Collected: 07/14/2020 13:03 Status: Final Last Updated: 08/26/2020 08:52 (1) Left Peural Effusion AFB (Final) No Acid Fast Bacilli Seen CULT RES (Final) No growth after 42 days of incubation Normal [facility] Comment on above: Order Comment: Left Peural Effusion Performed By: #### 8 [id number] #### [facility] [address] *ANAEROBIC CULTUREon 021 *ANAEROBIC CULTURE Clinical Report: (D) Specimen/Source: FLUID/PLEURAL FLUID Collected: 07/14/2020 13:03 Status: Final Last Updated: 07/19/2020 08:08 (1) Left Peural Effusion CULT RES (Final) No Anaerobes Isolated 5 Days Normal [facility] Comment on above: Order Comment: Left Peural Effusion Performed By: #### 8 [id number] #### [facility] [address] *BODY FLUID CULTUREon 2020 *BODY FLUID CULTURE Clinical Report: (D) Specimen/Source: FLUID/PLEURAL FLUID Collected: 07/14/2020 13:03 Status: Final Last Updated: 07/19/2020 07:53 (1) Left Peural Effusion GRAM (Final) Polys PRESENT No Bacteria Seen CYTOSPUN (Final) This Gram Stain was done on a cytocentrifuged specimen CULT RES (Final) No Growth Day 5 Normal [facility] Comment on above: Order Comment: Left Peural Effusion Performed By: #### 3 0318 #### [facility] [address] *FUNGAL CULTUREon 07-14-2020 *FUNGAL CULTURE Clinical Report: (D) Specimen/Source: FLUID/PLEURAL FLUID Collected: 07/14/2020 13:03 Status: Final Last Updated: 08/15/2020 08:41 (1) Left Peural Effusion FS (Final) No Yeast or Fungal Elements Seen CULT RES (Final) Culture negative for fungus Normal [facility] Comment on above: Order Comment: Left Peural Effusion Performed By: #### 8 [id number] #### [facility] [address] [place] [address], [facility] *VIRAL NON RESPIRATORY CULTU REon 07-14-2020 Bacteria identified Cx Nom (Unsp spec) Normal [facility] Comment on above: Order Comment: Left Peural [...] Linked Virus Inducible S. [place] Normal [facility] Comment on above: Order Comment: Left Peural Effusion Result Comment: Test Performed by [facility] [address] [place] [id number] - Released 07/20/2020 14:10 Result changed by IF on 07/17/2020 14:17. The previous value was Test Performed by [facility] [address] [place] [phone].. Result changed by IF on 07/18/2020 12:17. The previous value was Test Performed by [facility] [address] [place] [address] [phone].. Result changed by IF on 07/20/2020 14:10. The previous value was Test Performed by [facility] [address] [place] [phone].. REPORT STATUS FINAL 07/20/2020 Normal [facility] Comment on above: Order Comment: Left Peural Effusion Result Comment: Resu lt changed by IF on 07/20/2020 14:10. The previous value was Preliminary. APTTon 07-14-2020 aPTT Coag (Bld) [Time] 41.7 s High 25.0-35.0 [facility] Comment on above: Order Comment: No: D [...] PURPOSE. Performed By: #### 8 [id number] #### [facility] [address] [facility]. [address] aPTT Coag (Bld) [Time] 44.9 s High 25.0-35.0 [facility] Comment on above: Order Comment: No: D [...] THIS PURPOSE. Performed By: #### 5 [id number], [id number] #### [facility] [address] [facility] [place] [address], [facility] BASIC METABOLIC PANELon - Calcium [Mass/Vol] 8.6 mg/dL Normal 8.6-10.3 [facility] Comment on above: Order Comment: No: D o not add to previous draw Performed By: #### 8 [id number] #### [facility] [address] [place] [id number], [facility] Chloride [Moles/Vol] 102 mmol/L Normal 98-107 [facility] Comment on above: Order Comment: No: D o not add to previous draw Performed By: #### 8 [id number] #### [facility] [address] [place] [address], [place] CO2 [Moles/Vol] 24 mmol/L Normal 21-31 [facility] Comment on above: Order Comment: No: D o not add to previous draw Performed By: #### 8 [id number] #### [facility] [address] [place] [address], [place] Creatinine [Mass/Vol] 3.44 mg/dL High 0.70-1.30 [facility] Comment on above: Order Comment: No: D o not add to previous draw Performed By: #### 8 [id number] #### [facility] [address] [place] [address], [place] eGFR- 22 ml/min/1.73sq m Abnormal >60 [facility] Comment on above: Order Comment: No: D o not add to previous draw Performed By: #### 8 [id number] #### [facility] [address] [place] [address], [place] eGFR- non- 18 ml/min/1.73sq m Abnormal >60 [facility] Comment on above: Order Comment: No: D o not add to previous draw Performed By: #### 8 [id number] #### [facility] [address] [place] [address], [place] Glucose [Mass/Vol] 355 mg/dL High 70-100 [facility] Comment on above: Order Comment: No: D o not add to previous draw Performed By: #### 8 [id number] #### [facility] [address] [place] [address], [place] Potassium [Moles/Vol] 4.6 mmol/L Normal 3.5-5.1 [facility] Comment on above: Order Comment: No: D o not add to previous draw Performed By: #### 8 [id number] #### [facility] [address] [place] [address], [facility] Sodium [Moles/Vol] 133 mmol/L Low 136-145 [facility] Comment on above: Order Comment: No: D o not add to previous draw Performed By: #### 8 [id number] #### [facility] [address] [place] [address], [facility] Urea nitrogen [Mass/Vol] 27 mg/dL High 7-25 [facility] Comment on above: Order Comment: No: D o not add to previous draw Performed By: #### 8 [id number] #### [facility] [address] [place] [address], [facility] BNP (B-TYPE NATRIURETIC PEPT CIERRA)on 07-14-2020 Natriuretic peptide B (Bld) [Mass/Vol] 19 pg/mL Normal 0-100 [facility] Comment on above: Order Comment: Left Peural Effusion Result Comment: Give n the appropriate clinical setting a BNP result of >100 pg/mL indicates congestive heart failure. Performed By: #### 3 0318 #### [facility] [address] [place] [address], [facility] CBC COMPLETE BLOOD COUNTon 0 07-14-2020 Erythrocyte distribution width (RBC) [Ratio] 14.6 % Normal 11.5-15.0 [facility] Comment on above: Order Comment: No: D o not add to previous draw Performed By: #### 8 [id number] #### [facility] [address] [place] [address], [facility] Hematocrit (Bld) [Volume fraction] 35.3 % Low 39.0-50.0 [facility] Comment on above: Order Comment: No: D o not add to previous draw Performed By: #### 8 [id number] #### [facility] [address] [place] [address], [facility] Hemoglobin (Bld) [Mass/Vol] 11.1 g/dL Low 13.0-17.0 [facility] Comment on above: Order Comment: No: D o not add to previous draw Performed By: #### 8 [id number] #### [facility] [address] [facility]. [address] MCH (RBC) [Entitic mass] 27.5 pg Normal 27.0-33.0 [facility] Comment on above: Order Comment: No: D o not add to previous draw Performed By: #### 8 [id number] #### [facility] [address] [facility]. [address] MCHC (RBC) [Mass/Vol] 31.4 g/dL Low 32.0-35.0 [facility] Comment on above: Order Comment: No: D o not add to previous draw Performed By: #### 8 [id number] #### [facility] [address] MCV (RBC) [Entitic vol] 87.6 fL Normal 82.0-98.0 [facility] Comment on above: Order Comment: No: D o not add to previous draw Performed By: #### 8 [id number] #### [facility] [address] Nucleated RBC/100 WBC (Bld) [Ratio] 0 % Normal 0-0 [facility] Comment on above: Order Comment: No: D o not add to previous draw Performed By: #### 8 [id number] #### [facility] [address] [place] [address], [facility] PLAT CNT 325 10*3/uL Normal 150-400 [facility] Comment on above: Order Comment: No: D o not add to previous draw Performed By: #### 8 [id number] #### [facility] [address] [place] [address], [facility] RBC (Bld) [#/Vol] 4.03 10*6/uL Low 4.20-5.70 [facility] Comment on above: Order Comment: No: D o not add to previous draw Performed By: #### 8 [id number] #### [facility] [address] [place] [address], [facility] WBC (Bld) [#/Vol] 12.59 10*3/uL High 4.00-10.60 [facility] Comment on above: Order Comment: No: D o not add to previous draw Performed By: #### 8 [id number] #### [facility] [address] [facility] [place] [address], [facility] CBC W/DIFFon 07-14-2020 ABS IMM GRANS 0.2 10*3/uL Normal 0.0-0.2 [facility] Comment on above: Order Comment: No: D o not add to previous draw Performed By: #### 8 [id number] #### [facility] [address] [place] [address], [facility] ABS NEUTROPHILS 7.9 10*3/uL High 1.6-7.6 [facility] Comment on above: Order Comment: No: D o not add to previous draw Performed By: #### 8 [id number] #### [facility] [address] [place] [address], [facility] Basophils (Bld) [#/Vol] 0.1 10*3/uL Normal 0.0-0.2 [facility] Comment on above: Order Comment: No: D o not add to previous draw Performed By: #### 8 [id number] #### [facility] [address] [facility] [place] [address], [facility] Basophils/100 WBC (Bld) 0.5 % Normal 0.0-1.0 [facility] Comment on above: Order Comment: No: D o not add to previous draw Performed By: #### 8 [id number] #### [facility] [address] [place] [address], [facility] Eosinophils (Bld) [#/Vol] 0.5 10*3/uL Normal 0.0-0.5 [facility] Comment on above: Order Comment: No: D o not add to previous draw Performed By: #### 8 [id number] #### [facility] [address] [place] [address], [facility] Eosinophils/100 WBC (Bld) 4.3 % Normal 0.0-6.0 [facility] Comment on above: Order Comment: No: D o not add to previous draw Performed By: #### 8 [id number] #### [facility] [address] Erythrocyte distribution width (RBC) [Ratio] 14.6 % Normal 11.5-15.0 [facility] Comment on above: Order Comment: No: D o not add to previous draw Performed By: #### 8 [id number] #### [facility] [address] [place] [address], [facility] Hematocrit (Bld) [Volume fraction] 34.2 % Low 39.0-50.0 [facility] Comment on above: Order Comment: No: D o not add to previous draw Performed By: #### 8 [id number] #### [facility] [address] [place] [address], [facility] Hemoglobin (Bld) [Mass/Vol] 10.3 g/dL Low 13.0-17.0 [facility] Comment on above: Order Comment: No: D o not add to previous draw Performed By: #### 8 [id number] #### [facility] [address] [place] [address], [facility] IMMATURE GRANS 1.4 % High 0.0-1.0 [facility] Comment on above: Order Comment: No: D o not add to previous draw Performed By: #### 8 [id number] #### [facility] [address] [place] [address], [facility] Lymphocytes (Bld) [#/Vol] 1.3 10*3/uL Normal 1.2-4.0 [facility] Comment on above: Order Comment: No: D o not add to previous draw Performed By: #### 8 [id number] #### [facility] [address] [place] [address], [facility] Lymphocytes/100 WBC (Bld) 11.3 % Low 20.0-45.0 [facility] Comment on above: Order Comment: No: D o not add to previous draw Performed By: #### 8 [id number] #### [facility] [address] [place] [address], [facility] MCH (RBC) [Entitic mass] 27.0 pg Normal 27.0-33.0 [facility] Comment on above: Order Comment: No: D o not add to previous draw Performed By: #### 8 [id number] #### [facility] [address] MCHC (RBC) [Mass/Vol] 30.1 g/dL Low 32.0-35.0 [facility] Comment on above: Order Comment: No: D o not add to previous draw Performed By: #### 8 [id number] #### [facility] [address] [facility] [place] [address], [facility] MCV (RBC) [Entitic vol] 89.5 fL Normal 82.0-98.0 [facility] Comment on above: Order Comment: No: D o not add to previous draw Performed By: #### 8 [id number] #### [facility] [address] [facility] [place] [address], [facility] Monocytes (Bld) [#/Vol] 1.4 10*3/uL High 0.1-1.0 [facility] Comment on above: Order Comment: No: D o not add to previous draw Performed By: #### 8 [id number] #### [facility] [address] [place] [address], [facility] MONOS 12.6 % High 5.0-12.0 [facility] Comment on above: Order Comment: No: D o not add to previous draw Performed By: #### 8 [id number] #### [facility] [address] [place] [address], [facility] Neutrophils/100 WBC (Bld) 69.9 % Normal 40.0-72.0 [facility] Comment on above: Order Comment: No: D o not add to previous draw Performed By: #### 8 [id number] #### [facility] [address] [place] [address], [facility] Nucleated RBC/100 WBC (Bld) [Ratio] 0 % Normal 0-0 [facility] Comment on above: Order Comment: No: D o not add to previous draw Performed By: #### 8 [id number] #### [facility] [address] [place] [address], [place] PLAT CNT 292 10*3/uL Normal 150-400 [facility] Comment on above: Order Comment: No: D o not add to previous draw Performed By: #### 8 [id number] #### [facility] [address] [place] [id number], [facility] RBC (Bld) [#/Vol] 3.82 10*6/uL Low 4.20-5.70 [facility] Comment on above: Order Comment: No: D o not add to previous draw Performed By: #### 8 [id number] #### [facility] [address] [place] [id number], [facility] WBC (Bld) [#/Vol] 11.28 10*3/uL High 4.00-10.60 [facility] Comment on above: Order Comment: No: D o not add to previous draw Performed By: #### 8 [id number] #### [facility] [address] [place] [address], [place] COMP METABOLIC PANELon 07-14 Albumin [Mass/Vol] 3.1 g/dL Low 3.5-5.7 [facility] Comment on above: Order Comment: No: D o not add to previous draw Performed By: #### 8 [id number] #### [facility] [address] [place] [address], [place] ALKALINE PHOSPH 77 IU/L Normal 34-104 [facility] Comment on above: Order Comment: No: D o not add to previous draw Performed By: #### 8 [id number] #### [facility] [address] [place] [address], [place] ALT [Catalytic activity/Vol] 8 U/L Normal 7-52 [facility] Comment on above: Order Comment: No: D o not add to previous draw Performed By: #### 8 [id number] #### [facility] [address] [place] [address], [place] AST [Catalytic activity/Vol] 11 U/L Low 13-39 [facility] Comment on above: Order Comment: No: D o not add to previous draw Performed By: #### 8 [id number] #### [facility] [address] [place] [address], [place] Bilirubin [Mass/Vol] 0.3 mg/dL Normal 0.3-1.0 [facility] Comment on above: Order Comment: No: D o not add to previous draw Performed By: #### 8 [id number] #### [facility] [address] [place] [address], [place] Calcium [Mass/Vol] 8.8 mg/dL Normal 8.6-10.3 [facility] Comment on above: Order Comment: No: D o not add to previous draw Performed By: #### 8 [id number] #### [facility] [address] [place] [address], [place] Chloride [Moles/Vol] 101 mmol/L Normal 98-107 [facility] Comment on above: Order Comment: No: D o not add to previous draw Performed By: #### 8 [id number] #### [facility] [address] [place] [address], [place] CO2 [Moles/Vol] 22 mmol/L Normal 21-31 [facility] Comment on above: Order Comment: No: D o not add to previous draw Performed By: #### 8 [id number] #### [facility] [address] [place] [address], [place] Creatinine [Mass/Vol] 3.38 mg/dL High 0.70-1.30 [facility] Comment on above: Order Comment: No: D o not add to previous draw Performed By: #### 8 [id number] #### [facility] [address] [place] [address], [place] eGFR- 23 ml/min/1.73sq m Abnormal >60 [facility] Comment on above: Order Comment: No: D o not add to previous draw Performed By: #### 8 [id number] #### [facility] [address] [place] [address], [place] eGFR- non- 19 ml/min/1.73sq m Abnormal >60 [facility] Comment on above: Order Comment: No: D o not add to previous draw Performed By: #### 8 [id number] #### [facility] [address] [place] [address], [place] Glucose [Mass/Vol] 324 mg/dL High 70-100 [facility] Comment on above: Order Comment: No: D o not add to previous draw Performed By: #### 8 [id number] #### [facility] [address] [place] [address], [place] Potassium [Moles/Vol] 4.5 mmol/L Normal 3.5-5.1 [facility] Comment on above: Order Comment: No: D o not add to previous draw Performed By: #### 8 [id number] #### [facility] [address] [place] [address], [place] Protein [Mass/Vol] 6.7 g/dL Normal 6.0-8.3 [facility] Comment on above: Order Comment: No: D o not add to previous draw Performed By: #### 8 [id number] #### [facility] [address] [place] [address], [facility] Sodium [Moles/Vol] 131 mmol/L Low 136-145 [facility] Comment on above: Order Comment: No: D o not add to previous draw Performed By: #### 8 [id number] #### [facility] [address] [place] [address], [facility] Urea nitrogen [Mass/Vol] 27 mg/dL High 7-25 [facility] Comment on above: Order Comment: No: D o not add to previous draw Performed By: #### 8 [id number] #### [facility] [address] [place] [address], [facility] CREATININE URINE RANDOMon Creatinine (U) [Mass/Vol] 101.0 mg/dL Normal [facility] Comment on above: Order Comment: No: D o not add to previous draw Result Comment: Ther e are no established reference values for random urine specimens Performed By: #### 8 [id number] #### [facility] [address] [place] [address], [facility] FLUID CELL COUNTon 1 Basophils/100 WBC (Bld) 1 % Normal [facility] Comment on above: Performed By: #### 8 [id number] #### [facility] [address] [place] [address], [place] Eosinophils/100 WBC (Bld) 11 % Normal [facility] Comment on above: Performed By: #### 8 [id number] #### [facility] [address] [place] [address], [place] Lymphocytes/100 WBC (Bld) 49 % Normal [facility] Comment on above: Performed By: #### 8 [id number] #### [facility] [address] [place] [address], [place] MESOTHELIAL 12 % Normal [facility] Comment on above: Performed By: #### 8 [id number] #### [facility] [address] [place] [address], [facility] OTHER F1 Diff done by cytospin Normal [facility] Comment on above: Performed By: #### 8 [id number] #### [facility] [address] [place] [address], [facility] OTHER F3 Checked by Evelyn Rodriguez M.D. Normal [facility] Comment on above: Result Comment: Resu lt changed by VHERR on 07/15/2020 13:33. The previous value was Preliminary report; verified report to follow. Performed By: #### 8 [id number] #### [facility] [address] [place] [address], [facility] RBC [address]20[address] RBC/uL Normal [facility] Comment on above: Performed By: #### 8 [id number] #### [facility] [address] [place] [address], [facility] SEGS 27 % Normal [facility] Comment on above: Performed By: #### 8 [id number] #### [facility] [address] [place] [address], [facility] SOURCE Thoracentesis Normal [facility] Comment on above: Performed By: #### 8 [id number] #### [facility] [address] [place] [address], [facility] TOTAL VOLUME 1L Normal [facility] Comment on above: Performed By: #### 8 [id number] #### [facility] [address] [place] [address], [facility] WBC 1762 WBC/uL Normal [facility] Comment on above: Result Comment: Some reference interval(s) and other method performance specifications have not been established for analytes on this body fluid. The test result must be integrated into the clinical context for interpretation. Performed By: #### 8 [id number] #### [facility] [address] [place] [address], [facility] GLUCOSE FLUID MISCon 021 Glucose [Mass/Vol] 326 mg/dL Normal [facility] Comment on above: Result Comment: The reference range and other method performance specifications have not been established for this test in fluids. the test result should be integrated into the clinical context for interpretation. Performed By: #### 3 1943 #### [facility] [address] [place] [address], [facility] HEMOGLOBIN A1Con 07-14-2020 Glucose [Moles/Vol] 295 mmol/L Normal [facility] Comment on above: Order Comment: Left Peural Effusion Performed By: #### 3 317 #### [facility] [address] [place] [address], [facility] HbA1c (Bld) [Mass fraction] 11.9 % High 4.0-6.0 [facility] Comment on above: Order Comment: Left Peural Effusion Performed By: #### 3 317 #### [facility] [address] [place] [address], [facility] HEPATITIS B SURFACE ANTIGEN QUALon 07-14-2020 HEP B SURF AG QUAL Non-Reactive Normal NONREACTIVE [facility] Comment on above: Order Comment: No: D o not add to previous draw Performed By: #### 3 1943 #### [facility] [address] [place] [id number], [facility] HEPATITIS C ANTIBODYon 07-14 ANTI-HCV Non-Reactive Normal NONREACTIVE [facility] Comment on above: Order Comment: No: D o not add to previous draw Performed By: #### 3 1943 #### [facility] [address] [place] [address], [facility] LDH BLOODon 07-14-2020 LDH 176 Units/L Normal 140-271 [facility] Comment on above: Order Comment: Left Peural Effusion Performed By: #### 3 317 #### [facility] [address] [place] [address], [facility] LDH 133 Units/L Low 140-271 [facility] Comment on above: Order Comment: No: D o not add to previous draw Performed By: #### 8 [id number] #### [facility] [address] [place] [address], [facility] LDH FLUIDon 07-14-2020 LDH 212 Units/L Normal [facility] Comment on above: Result Comment: The reference range and other method performance specifications have not been established for this test in fluids. the test result should be integrated into the clinical context for interpretation. Performed By: #### 3 1944 #### [facility] [address] [place] [address], [facility] LIPID PROFILEon 07-14-2020 Cholesterol [Mass/Vol] 95 mg/dL Low 120-200 [facility] Comment on above: Order Comment: No: D o not add to previous draw Result Comment: CHOL ESTEROL REFERENCE RANGE: 20 YEARS AND OLDER CARDIOVASCULAR RISK Less than 200 mg/dl Low Risk 200 to 239 mg/dl Borderline Risk 240 mg/dl and greater High Risk Performed By: #### 8 [id number] #### [facility] [address] [place] [address], [facility] Cholesterol in HDL [Mass/Vol] 36 mg/dL Normal 23-92 [facility] Comment on above: Order Comment: No: D o not add to previous draw Result Comment: Slig ht variation in normal range could be due to gender and/or age. HDL CHOLESTEROL REFERENCE RANGE: 20 years and older Cardiovascular Risk > or =60 mg/dL Desirable 40 TO 59 mg/dL Low Risk <40 mg/dL High Risk Performed By: #### 8 [id number] #### [facility] [address] [place] [address], [facility] Cholesterol in LDL [Mass/Vol] 37 mg/dL Normal 0-130 [facility] Comment on above: Order Comment: No: D o not add to previous draw Result Comment: LDL IS A CALCULATION LDL IS ONLY VALID IF THE TRIG IS LESS THAN 400. Performed By: #### 8 [id number] #### [facility] [address] [place] [address], [facility] Cholesterol.total/C holesterol in HDL [Mass ratio] 2.6 {ratio} Normal 0.0-4.5 [facility] Comment on above: Order Comment: No: D o not add to previous draw Performed By: #### 8 [id number] #### [facility] [address] [place] [address], [facility] NON-HDL CHOLESTEROL 59 mg/dL Normal [facility] Comment on above: Order Comment: No: D o not add to previous draw Performed By: #### 8 [id number] #### [facility] [address] [place] [address], [facility] Triglyceride [Mass/Vol] 109 mg/dL Normal 40-149 [facility] Comment on above: Order Comment: No: D o not add to previous draw Result Comment: TRIG LYCERIDE REFERENCE RANGE: 20 YEARS AND OLDER CARDIOVASCULAR RISK LESS THAN 150 mg/dl LOW RISK 150 TO 199 mg/dl BORDERLINE RISK 200 mg/dl AND GREATER HIGH RISK Performed By: #### 8 [id number] #### [facility] [address] [place] [address], [facility] VLDL CHOL 22 mg/dL Normal 0-40 [facility] Comment on above: Order Comment: No: D o not add to previous draw Performed By: #### 8 [id number] #### [facility] [address] [place] [address], [facility] MAGNESIUM BLOODon 07-14-2020 Magnesium [Mass/Vol] 2.1 mg/dL Normal 1.9-2.7 [facility] Comment on above: Order Comment: No: D o not add to previous draw Performed By: #### 8 [id number] #### [facility] [address] [place] [address], [place] Magnesium [Mass/Vol] 2.0 mg/dL Normal 1.9-2.7 [facility] Comment on above: Performed By: #### 8 [id number] #### [facility] [address] [place] [address], [place] PHOSPHORUS BLOODon Phosphate [Mass/Vol] 4.1 mg/dL Normal 2.5-5.0 [facility] Comment on above: Order Comment: No: D o not add to previous draw Performed By: #### 8 [id number] #### [facility] [address] [place] [address], [place] Phosphate [Mass/Vol] 4.0 mg/dL Normal 2.5-5.0 [facility] Comment on above: Performed By: #### 8 [id number] #### [facility] [address] [place] [address], [place] POC GLUCOSE LABon 07-14-2020 Glucose [Mass/Vol] 180 mg/dL High 70-100 [facility] Comment on above: Performed By: #### 8 [id number] ####[facility] [place] [address], [place] Glucose [Mass/Vol] 198 mg/dL High 70-100 [facility] Comment on above: Performed By: #### 5 7307, 62875 #### [facility] [address] [place] [address], [place] Glucose [Mass/Vol] 265 mg/dL High 70-100 [facility] Comment on above: Performed By: #### 8 [id number] #### [facility] [address] [place] [address], [place] Glucose [Mass/Vol] 305 mg/dL High 70-100 [facility] Comment on above: Performed By: #### 5 7307, [id number] #### [facility] [address] [place] [address], [place] Glucose [Mass/Vol] 301 mg/dL High 70-100 [facility] Comment on above: Performed By: #### 5 0103 #### [id number] [place] [address] PORTABLE CHEST 1 VIEWon 06-27 PORTABLE CHEST 1 VIEW [facility] Department of Radiology [address] [place] [id number] Patient Name: RASHARD LYMAN : 1960 Sex: M Age: Race: White Pt. Location: [id number] Patient Status: I Ordered Date: 07/14/2020 1:40:00 [...] above Electronically signed: Patricia Damon. Transcribed by: [email or web address], User Resident: Electronically Signed by: PATRICIA DAMON @ 07/14/2020 03:24 PM Normal [facility] Comment on above: Order Comment: Evalu ate for Pneumothorax PORTABLE CHEST 1 VIEW [facility] Department of Radiology [address] [place] [phone] Patient Name: RASHARD LYMAN : 1960 Sex: M Age: Race: White Pt. Location: [id number] Patient Status: I Ordered Date: 07/13/2020 11:35:00 [...] pleural effusion. Approved by:Sy Guerra07/14/2020 6:04 AM. Lorene, Valdemar Foster,have reviewed the images and reports Electronically signed: Valdemar Foster. Transcribed by: [email or web address], User Resident: [email or web address] Electronically Signed by: VALDEMAR FOSTER @ 07/14/2020 06:31 AM I personally read this/these film(s) with this resident Normal [facility] Comment on above: Order Comment: evalu ate for Effusion PROTEIN ELECT Truong 07-14-2020 Protein [Mass/Vol] 6.0 g/dL Normal 6.0-8.3 [facility] Comment on above: Performed By: #### 3 0318 #### [facility] [address] [place] [address], [facility] PROTEIN ELECT Normal The [facility] Comment on above: Result Comment: Decr eased albumin and elevated alpha 1 and 2 suggests acute inflammation. Performed By: #### 3 0318 #### [facility] [address] [place] [address], [facility] PROTEIN ELECT URon 1 PROTEIN ELECT Urine protein electrophoresis suggests a nonselective nephropathy. Normal [facility] Comment on above: Performed By: #### 3 1944 #### [facility] [address] [place] [address], [facility] PROTEIN TOTAL BLOODon 2020 Protein [Mass/Vol] 6.7 g/dL Normal 6.0-8.3 [facility] Comment on above: Order Comment: Left Peural Effusion Performed By: #### 3 0318 #### [facility] [address] [place] [address], [facility] PROTHROMBIN TIMEon 1 INR Coag (PPP) [Relative time] 1.12 {INR} Normal 0.91-1.16 [facility] Comment on above: Order Comment: No: D [...] CHEST 1995;[id number]. Performed By: #### 5 7307, 94074 #### [facility] [address] PT Coag (PPP) [Time] 14.4 s Normal 12.3-14.8 [facility] Comment on above: Order Comment: No: D o not add to previous draw Result Comment: ALL RESULTS MUST BE INTERPRETED WITH RESPECT TO BLOOD DRAWING ARTIFACT OR DILUTION ERROR OF ANTICOAGULANT AT THE TIME OF SAMPLING. Performed By: #### 5 7307, [id number] #### [facility] [address] [place] [address], [facility] SEDIMENTATION RATEon 021 SED RATE 32 mm/hr High 0-10 [facility] Comment on above: Performed By: #### 8 [id number] #### [facility] [address] [place] [address], [facility] SODIUM URINE RANDOMon 2020 Sodium (U) [Moles/Vol] 59 mmol/L Normal The [facility] Comment on above: Order Comment: No: D o not add to previous draw Result Comment: Ther e are no established reference values for random urine specimens Performed By: #### 8 [id number] #### [facility] [address] [place] [address], [facility] T PROT FLUIDon 07-14-2020 Protein [Mass/Vol] 3.6 g/dL Normal The [facility] Comment on above: Result Comment: The reference range and other method performance specifications have not been established for this test in fluids. the test result should be integrated into the clinical context for interpretation. Performed By: #### 3 1944 #### [facility] [address] [place] [address], [facility] T PROT UR Loretta 07-14-2020 U TOTAL PROTEIN 859.0 mg/dL Normal [facility] Comment on above: Order Comment: No: D o not add to previous draw Result Comment: Ther e are no established reference values for random urine specimens Performed By: #### 8 [id number] #### [facility] [address] [facility]. [address] Performed By: #### 3 1944 #### [facility] [address] [facility]. [address] TROPONIN-Ion 07-14-2020 Troponin I.cardiac [Mass/Vol] 0.09 ng/mL High 0.00-0.04 [facility] Comment on above: Order Comment: No: D o not add to previous draw Result Comment: REFE RENCE RANGES: 0.00 - 0.04 ng/ml NORMAL 0.05 - 0.50 ng/ml INDETERMINATE > 0.50 ng/ml CONSISTENT WITH AN M.I. Performed By: #### 8 [id number] #### [facility] [address] [facility] Troponin I.cardiac [Mass/Vol] 0.07 ng/mL High 0.00-0.04 [facility] Comment on above: Order Comment: No: D o not add to previous draw Result Comment: REFE RENCE RANGES: 0.00 - 0.04 ng/ml NORMAL 0.05 - 0.50 ng/ml INDETERMINATE > 0.50 ng/ml CONSISTENT WITH AN M.I. Performed By: #### 8 [id number] #### [facility] [address] [place] [address], [facility] TSH3on 07-14-2020 TSH 3RD GENERATION 3.28 uIU/mL Normal 0.34-5.60 [facility] Comment on above: Order Comment: No: D o not add to previous draw Performed By: #### 8 [id number] #### [facility] [address] [place] [address], [place] URIC ACID BLOODon 07-14-2020 Urate [Mass/Vol] 7.1 mg/dL Normal 4.4-7.6 [facility] Comment on above: Performed By: #### 8 [id number] #### [facility] [address] [place] [address], [place] URINALYSIS REFLEXon 07-15-19 21 Appearance (U) SL CLOUDY Abnormal CLEAR [facility] Comment on above: Order Comment: Left Peural Effusion Performed By: #### 3 0318 #### [facility] [address] [place] [address], [place] Bilirubin Ql (U) Negative Normal NEGATIVE [facility] Comment on above: Order Comment: Left Peural Effusion Performed By: #### 3 0318 #### [facility] [address] [place] [address], [place] Color (U) YELLOW Normal YELLOW [facility] Comment on above: Order Comment: Left Peural Effusion Performed By: #### 3 0318 #### [facility] [address] [place] [address], [place] EPIS FEW Normal FEW,OCC,NONE SEEN [facility] Comment on above: Order Comment: Left Peural Effusion Performed By: #### 3 0318 #### [facility] [address] [place] [address], [place] Glucose Ql (U) >=500 Abnormal NEGATIVE The [facility] Comment on above: Order Comment: Left Peural Effusion Performed By: #### 3 0318 #### [facility] [address] [place] [address], [place] Hemoglobin Ql (U) TRACE Abnormal NEGATIVE [facility] Comment on above: Order Comment: Left Peural Effusion Performed By: #### 3 0318 #### [facility] [address] [place] [address], [place] KETONE TRACE Abnormal NEGATIVE [facility] Comment on above: Order Comment: Left Peural Effusion Performed By: #### 3 0318 #### [facility] [address] [place] [address], [place] LEUK JACIEL Negative Normal NEGATIVE [facility] Comment on above: Order Comment: Left Peural Effusion Performed By: #### 3 0318 #### [facility] [address] [place] [address], [place] MUCUS THREADS OCC Abnormal NONE SEEN [facility] Comment on above: Order Comment: Left Peural Effusion Performed By: #### 3 0318 #### [facility] [address] [place] [address], [place] Nitrite Ql (U) Negative Normal NEGATIVE [facility] Comment on above: Order Comment: Left Peural Effusion Performed By: #### 3 0318 #### [facility] [address] [place] [address], [place] pH (U) 6.0 [pH] Normal 5.0-8.0 [facility] Comment on above: Order Comment: Left Peural Effusion Performed By: #### 3 0318 #### [facility] [address] [place] [address], [place] Protein Ql (U) >=500 Abnormal NEGATIVE [facility] Comment on above: Order Comment: Left Peural Effusion Performed By: #### 3 0318 #### [facility] [address] [place] [address], [place] RBC 0-2 Abnormal NONE SEEN [facility] Comment on above: Order Comment: Left Peural Effusion Performed By: #### 3 0318 #### [facility] [address] [place] [address], [place] SPEC GRAV 1.017 Normal 1.015-1.020 [facility] Comment on above: Order Comment: Left Peural Effusion Performed By: #### 3 [id number] #### [facility] [address] [place] [address], [facility] WBC UA 3-5 Abnormal NONE SEEN [facility] Comment on above: Order Comment: Left Peural Effusion Performed By: #### 3 [id number] #### [facility] [address] [place], [place] [id number] [place] [address] Vital Signs Date Time Vital Sign Value Performing Clinician Facility 03-21-2021 15:40-0500 Body height 193.04 cm Kike Gomesangela Other [facility] Other 03-21-2021 15:40-0500 Body mass index (BMI) [Ratio] 39.02 kg/m2 Judahmani Jaki Other [facility] Other 03-21-2021 15:40-0500 Body temperature 97.8 [degF] Kike Jaki Other [facility] Other 03-21-2021 15:40-0500 Body weight 145.42 kg Kike Jaki Other [facility] Other 03-21-2021 15:40-0500 Diastolic blood pressure 84 mm[Hg] Kike Pollack Other [facility] Other 03-21-2021 15:40-0500 Respiratory rate 18 /min Kike Jaki Other [facility] Other 03-21-2021 15:40-0500 SaO2% (BldA) [Mass fraction] 96 % Kike Pollack Other [facility] Other 03-21-2021 15:40-0500 Systolic blood pressure 137 mm[Hg] Kike Pollack Other [facility] [employer] Other 08-25-2020 12:24-0400 Heart rate 82 /min Jose Valone Work Phone: [facility] 08-25-2020 12:24-0400 Respiratory rate 20 /min Jose Valone Work Phone: [facility] 08-25-2020 11:17-0400 Body temperature 98.7 [degF] Jose Valone Work Phone: [facility] 08-25-2020 11:17-0400 Diastolic blood pressure 94 mm[Hg] Jose Valone Work Phone: [facility] 08-25-2020 11:17-0400 SaO2% (BldA) [Mass fraction] 96 % Jose Valone Work Phone: [facility] 08-25-2020 11:17-0400 Systolic blood pressure 183 mm[Hg] Jose Valone Work Phone: [facility] 08-25-2020 06:00-0400 Body weight 160.5 kg Jose Valone Work Phone: [facility] 08-19-2020 14:17-0400 Body height 193.04 cm Jose Valone Work Phone: [facility] 08-18-2020 21:22-0400 Body height 193.04 cm Jose Valone Work Phone: [facility] 08-18-2020 21:22-0400 Body mass index (BMI) [Ratio] 43.8 kg/m2 Jose Valone Work Phone: [facility] 08-18-2020 21:22-0400 Body temperature 97.6 [degF] Jose Valone Work Phone: [facility] 08-18-2020 21:22-0400 Body weight 163.3 kg Jose Valone Work Phone: [facility] 08-18-2020 21:22-0400 Diastolic blood pressure 80 mm[Hg] Jose Juarez Work Phone: [facility] 08-18-2020 21:22-0400 Heart rate 105 /min Jose Juarez Work Phone: [facility] 08-18-2020 21:22-0400 Respiratory rate 18 /min Jose Juarez Work Phone: [facility] 08-18-2020 21:22-0400 SaO2% (BldA) [Mass fraction] 94 % Jose Juarez Work Phone: [facility] 08-18-2020 21:22-0400 Systolic blood pressure 160 mm[Hg] Jose Juarez Work Phone: [facility] Encounters Encounter Date Encounter Type Care Provider Facility Start: 11-19-2023 End: 11-19-2023 ambulatory [facility] Start: 10-23-2023 End: 10-23-2023 ambulatory [facility] Start: 09-03-2023 End: 09-03-2023 ambulatory [facility] Start: 07-31-2023 End: 07-31-2023 ambulatory [facility] Start: 07-02-2023 End: 07-02-2023 ambulatory [facility] Start: 06-04-2023 End: 06-04-2023 ambulatory [facility] Start: 05-31-2023 End: 06-01-2023 ambulatory [facility] Start: 05-06-2023 End: 05-06-2023 ambulatory [facility] Start: 04-19-2023 End: 04-19-2023 ambulatory [facility] Start: 02-27-2023 End: 02-28-2023 ambulatory [facility] Start: 09-11-2022 End: 09-12-2022 ambulatory [facility] Facility:H1 Start: 08-28-2022 End: 08-29-[address] [facility] Facility:H1 Start: 08-24-2022 End: 08-25-[address] JOSE JUAREZ Facility:H1 Start: 08-20-2022 End: 08-21-[address] JOSE JUAREZ Facility:H1 Start: 08-19-2022 Encounter for preprocedural cardiovascular examination [facility] Start: 08-19-2022 Encounter for preprocedural laboratory examination [facility] Start: 08-19-2022 Encounter for preprocedural respiratory examination [facility] Start: 08-15-2022 End: 08-16-[address] [...] Facility:H1 Start: 05-07-2022 End: 05-08-[address] JOES JUAREZ Facility:H1 Start: 04-09-2022 End: 04-10-2022 ambulatory [...] Facility:H1 Start: 02-02-2022 End: 02-03-[address] [facility] Facility:H1 Start: 01-26-2022 End: 01-27-[address] [facility] Facility:H1 Start: 01-18-2022 End: 01-19-[address] [facility] Facility:H1 Start: 01-15-2022 End: 01-15-[address] [facility] Facility:H1 Start: 01-12-2022 End: 01-13-2022 ambulatory [facility] Facility:H1 Start: 01-10-2022 End: 01-11-[address] [facility] Facility:H1 Start: 01-02-2022 End: 01-03-2022 ambulatory [facility] Facility:H1 Start: 12-25-2021 End: 12-26-2021 ambulatory [facility] Facility:H1 Start: 12-21-2021 End: 12-22-2021 ambulatory SHAIKH Patricia DAVIS Facility:H1 Start: 12-18-2021 End: 12-19-2021 ambulatory [facility] Facility:H1 Start: 12-15-2021 End: 12-16-2021 ambulatory [facility] Facility:H1 Start: 12-11-2021 End: 12-12-2021 ambulatory [address] [facility] Facility:H1 Start: 11-30-2021 End: 12-01-[address] CARLOS EDUARDO SU . Facility:H1 Start: 11-22-2021 End: 11-23-[address] CARLOS EDUARDO SU . Facility:H1 Start: 11-21-2021 End: 11-22-[address] [facility] Facility:H1 Start: 11-14-[address] CARLOS EDUARDO SU . Faci lity:H1 Start: 11-13-2021 End: 11-14-[address] [facility] Facility:H1 Start: 11-07-2021 End: 11-08-[address] [facility] Facility:H1 Start: 10-31-2021 End: 11-01-2021 [facility] Start: 10-24-2021 End: 10-25-[address] [facility] Facility:H1 Start: 10-17-2021 End: 10-18-[address] [facility] Facility:H1 Start: 10-09-2021 End: 10-10-[address] [facility] Facility:H1 Start: 03-21-2021 End: 03-21-2021 ambulatory Kike Pollack Other [employer] Other Start: 03-21-2021 Office outpatient vi sit 25 minutes Kike Pollack [facility] Start: 10-20-2020 End: 10-21-2020 ambulatory UNKNOWN PROVIDER Facility:[facility] Start: 09-28-2020 End: 09-28-2020 Patient encounter procedure Jose Juarez Work Phone: -Respiratory Therapy Start: 09-06-2020 End: 09-06-2020 Patient encounter procedure Jose Juarez Work Phone: -Electrodiagnostics Start: 08-18-2020 End: 08-25-2020 Evaluation and management of inpatient Jose Juarez Work Phone: -[facility] Start: 07-13-2020 End: 07-22-2020 Evaluation and management of inpatient SAVANNAH REYNOLDS Facility:[facility] Procedures Date Procedure Procedure Detail Performing Clinician Start: 08-20-2020 MR thoracic spine wo con Jose Juarez Work Phone: Start: 08-19-2020 CT abdomen pelvis wo con Jose Juarez Work Phone: Start: 08-19-2020 CT chest wo con Jose Juarez Work Phone: Start: 08-19-2020 Ultrasonography of b ilateral kidneys Jose [employer] Work Phone: Start: 08-19-2020 End: 08-19-2020 Aerobic microbial culture Jose [employer]fair Work Phone: Start: 08-19-2020 Investigation of tra nsfusion reaction Jose Tod Work Phone: Start: 08-18-2020 Plain chest X-ray Ney Juarez Work Phone: Start: 08-18-2020 Blood culture [...] identified in Blood by Culture Blood Culture [facility] Patient referral [facility] Immunizations Immunization Date Immunization Notes Care Provider Iker de la garza 05-27-2015 influenza, seasonal, injectable Kike Gomesangela Other [facility] Other 05-27-2015 pneumococcal polysaccharide vaccine, 23 valent Kike Gomesangela Other [facility] Other Payers Date Payer Category Payer Unknown [id number] 1960 Unknown [id number] .16.8 40.1.038795.3.579.2.647 1960 Unknown [id number] .. [id number] 1960 Unknown [id number] 2.16.84 0.1.225196.3.579.2.593 1960 Unknown [id number] 2.16.84 0.1.910158.3.579.2.593 1960 Unknown [id number] 2.16.84 0.1.053366.3.579.2.593 1960 Unknown [id number] 2.16.84 0.1.739652.3.579.2.593 1960 Unknown [id number] 2.16.84 0.1.381896.3.579.2.593 1960 Unknown [id number] 2.16.84 0.1.816329.3.579.2.593 1960 Unknown [id number] 2.16.84 0.1.072284.3.579.2.593 1960 Unknown [id number] 2.16.84 0.1.690772.3.579.2.593 1960 Unknown [id number] 2.16.84 0.1.088919.3.579.2.593 1960 Unknown [id number] 2.16.84 0.1.947134.3.579.2.593 1960 Unknown [id number] 2.16.84 0.1.912180.3.579.2.593 1960 Unknown [id number] 2.16.84 0.1.082016.3.579.2.593 1960 Unknown [id number] 2.16.84 0.1.631754.3.579.2.593 1960 Unknown [id number] 2.16.84 0.1.298446.3.579.2.593 1960 Unknown [id number] 2.16.84 0.1.920596.3.579.2.593 1960 Unknown [id number] 2.16.84 0.1.343667.3.579.2.593 1960 Unknown [id number] 2.16.84 0.1.764853.3.579.2.593 1960 Unknown [id number] 2.16.84 0.1.870870.3.579.2.593 1960 Unknown [id number] 2.16.84 0.1.792026.3.579.2.593 1960 Unknown [id number] 2.16.84 0.1.579179.3.579.2.593 1960 Unknown [id number] 2.16.84 0.1.605690.3.579.2.593 1960 Unknown [id number] 2.16.84 0.1.376819.3.579.2.593 1960 Unknown [id number] 2.16.84 0.1.506194.3.579.2.593 1960 Unknown [id number] 2.16.84 0.1.949007.3.579.2.593 1960 Unknown [id number] 2.16.84 0.1.783511.3.579.2.593 1960 Unknown [id number] 2.16.84 0.1.951816.3.579.2.593 1960 Unknown [id number] 2.16.84 0.1.796333.3.579.2.593 1960 Unknown [id number] 2.16.84 0.1.259477.3.579.2.593 1960 Unknown [id number] 2.16.84 0.1.081385.3.579.2.593 1960 Unknown [id number] 2.16.84 0.1.106998.3.579.2.593 1960 Unknown [id number] 2.16.84 0.1.325783.3.579.2.593 1960 Unknown [id number] 2.16.84 0.1.237556.3.579.2.593 1960 Unknown [id number] 2.16.84 0.1.498184.3.579.2.593 1960 Unknown [id number] 2.16.84 0.1.972030.3.579.2.593 1960 Unknown [id number] 2.16.84 0.1.104070.3.579.2.593 1960 Unknown [id number] 2.16.84 0.1.114927.3.579.2.593 1960 Unknown [id number] 2.16.84 0.1.384955.3.579.2.593 1960 Unknown [id number] 2.16.84 0.1.176053.3.579.2.593 1960 Unknown [id number] 2.16.84 0.1.643083.3.579.2.593 1960 Unknown [id number] 2.16.84 0.1.092218.3.579.2.593 1960 Unknown [id number] 2.16.84 0.1.163850.3.579.2.593 1960 Unknown [id number] 2.16.84 0.1.141654.3.579.2.593 1960 Unknown [id number] 2.16.84 0.1.443051.3.579.2.593 1960 Unknown [id number] 2.16.84 0.1.517664.3.579.2.593 1960 Unknown [id number] 2.16.8 40.1.708301.3.579.2.1286 1960 Unknown [id number] 2.16.8 40.1.145290.3.579.2.1286 1960 Unknown [id number] 2.16.8 40.1.965485.3.579.2.1286 1960 Unknown [id number] 2.16.8 40.1.390507.3.579.2.1286 1960 Unknown [id number] 2.16.8 40.1.337165.3.579.2.1286 1960 Unknown [id number] 2.16.84 0.1.454842.3.579.2.1286 1960 Unknown [id number] 2.16.84 0.1.836977.3.579.2.1286 1960 Unknown [id number] 2.16.8 40.1.307643.3.579.2.1286 1959 Unknown [id number] Medicare Self Pay [id number] Self-pay Self Pay [id number] Social History Date Type Detail Facility Tobacco smoking status NHIS Unknown if ever smoked [facility] Start: 1960 Sex Assigned At Male F [facility] Start: 08-18-2020 Tobacco smoking status NHIS Unknown if ever smoked [facility] Start: 08-22-2020 Tobacco smoking status NHIS Never smoked tobacco (finding) [facility] Sex Assigned At Sex Assigned At [facility] Other Goals Date Patient Goal Desired Activity /State Functional Status Date Assessment Result Facility 08-25-2020 Functional status Patient at Baseline [facility] Mental Status Date Assessment Result Facility 08-25-2020 Cognitive function Cognitive Sta tus Patient at Baseline 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 [facility] 03-01-2022 Note CONSULTATION PROCEDURE DATE: 03/01/2022 [...] pattern and patient tolerated procedure well. [facility] 12-22-2021 Note PROCEDURE: XR ANKLE LT [...] authenticated by: PRISCA SANDERSON Date: 2021-12-22 10:12 [facility] 12-22-2021 Note PROCEDURE: [...] authenticated by: PRISCA SANDERSON Date: 2021-12-22 10:12 [facility] 12-22-2021 Note PROCEDURE: [...] authenticated by: PRISCA SANDERSON Date: 2021-12-22 10:12 [facility] 12-22-2021 Note PROCEDURE: XR ANKLE LT 2V HISTORY: Pain ; left ankle external fixation application COMPARISON: None. FINDINGS: BONES:3 intraoperative spot fluoroscopic images demonstrate external fixation device surrounding the left ankle. IMPRESSION: External fixation device application. Electronically authenticated by: PRISCA SANDERSON Date: 2021-12-22 10:07 [facility] 12-12-2021 Note PROCEDURE: XR FOOT L [...] by: PRISCA SANDERSON Date: 2021-12-12 08:04 [facility] 11-30-2021 Note CONSULTATION The patient returns [...] in clinic in three months' time. [facility] 11-22-2021 Note CONSULTATION CONSULTATION DATE: 11/22/2021 [...] a wound debridement surgery, which was early Gail of this month. He is currently on [...] to the clinic to receive those. [facility] 11-14-2021 Note PROCEDURE: XR FOOT L [...] authenticated by: PRISCA SANDERSON Date: 2021-11-14 15:42 [facility] 11-07-2021 Note PROCEDURE: [...] authenticated by: JAMESON SALGUERO Date: 2021-11-07 19:28 [facility] 03-21-2021 Evaluation note Encounter Date Diagnosis [...] takes midodrine as well as stated above. [facility] Other 03-27-2021 NoteMR#: [id number] I [facility] Pt. Name: Rashard Lyman Admitted: 07/13/2020 Discharged: [...] chest pain. Also, there is mention on [place] records of large inferior/lateral wall abnormality in [...] ON DISCHARGE: A (more content not included)...[facility]03-19-2021 NoteMR#: [id number] [facility] Pt. Name: Rashard Lyman Surgery Date: 07/14/2020 Room #: [id number] Date of : 1960 PROCEDURE NOTE ATTENDING: [...] Pham MD Date Trans: 07/15/2020 01:32 P/ [id number] cc: Nima Wynne MD [address] [address] NoteMR#: [id number] [facility] Pt. Name: Rashard Lyman Surgery Date: 07/14/2020 Room #: [id number] Date of : 1960 PROCEDURE NOTE ATTENDING: Nima Wynne MD Procedure: Left sided US guided Thoracentesis Pre-procedure Diagnosis: Left pleural effusion Post-procedure Diagnosis: same as above Prior to Procedure: Informed Consent:The risks, benefits, indications, potential complications, and alternatives were explained to the patient/family and informed consent obtained Attending Staff: Nima Wynne Resident/Fellow/COOPERATIVE EDUCATION DIRECTOR: Davis Pham Indications: Nura Munoz is 60 [...] Wynne MD Date Trans: 07/15/2020 12:53 P/ [id number] Diagnosis Onset Date Resolution Status Hyperglycemia acute Pneumonia acute Psoriasis acute 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 acute CKD (chronic kidney disease) stage 4, GFR 15-29 ml/min chronic COPD (chronic obstructive pulmonary disease) chronic 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 GERD (gastroesophageal reflux disease) chronic Obesities, morbid chronic Peripheral vascular occlusive disease chronic Status post amputation of toe of right foot [facility] Diagnosis Onset Date Resolution [...] (chronic obstructive pulmonary disease) chronic 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 GERD (gastroesophageal reflux disease) chronic Hypertension chronic [id number] chronic Obesities, morbid chronic Peripheral vascular occlusive disease chronic Status post amputation of toe of right foot [facility] Narrative - Reported* Type [...] HIS LOWER BACK Hospitalization History see above [facility] Other Hospital Discharge instructions Additional Instructions You [...] knee Educate on high risk fall precautions [facility] Assessments No Assessments Information [...] 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 GERD (gastroesophageal reflux disease) Hypertension [id number] Obesities, morbid Peripheral vascular occlusive disease Status [...] 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 GERD (gastroesophageal reflux disease) Hypertension [id number] Obesities, morbid Peripheral vascular occlusive disease Status [...] 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 GERD (gastroesophageal reflux disease) Hypertension [id number] Obesities, morbid Peripheral vascular occlusive disease Status [...] and content) DATE CREATED AUTHOR 09/11/2020 [facility] DATE CREATED AUTHOR AUTHOR'S ORGANIZ ATION 10/21/2020 [facility] DATE CREATED AUTHOR AUTHOR'S ORGANIZ ATION 08/03/2021 [facility] DATE CREATED AUTHOR AUTHOR'S ORGANIZ ATION 10/05/2022 [facility] DATE CREATED AUTHOR AUTHOR'S ORGANIZ ATION 06/03/2023 [facility] DATE CREATED AUTHOR AUTHOR'S ORGANIZ ATION 10/27/2023 [facility] DATE CREATED AUTHOR AUTHOR'S ORGANIZ ATION 11/22/2023 [facility] Goals (unrecognized section and content) Goals may [...] BE BASED ON THE PRIMARY CLINICAL RECORDS. [facility] [employer] [facility]. provides no warranty or guarantee of the accuracy or completeness of information in this document.
== END 2023-11-26 15:23 | disposition home or self-care (01) ==
LOC: WC 15:22
PROVIDERS: PCP Podiatrist Foot & Ankle Surgery; Visit Provider Physician Assistant
DX: E11.621 Type 2 diabetes mellitus with foot ulcer (principal); L97.422 Non-pressure chronic ulcer of left heel and midfoot with fat layer exposed
CPT/HCPCS: 11042

== ENCOUNTER 2023-12-10 16:03 | Outpatient (OUT) | payer BC, SELFPAY | END 2023-12-10 16:04 | disposition home or self-care (01) | LOC: WC 16:03 | PROVIDERS: PCP Podiatrist Foot & Ankle Surgery; Visit Provider Physician Assistant | DX: E11.621 Type 2 diabetes mellitus with foot ulcer (principal); L97.422 Non-pressure chronic ulcer of left heel and midfoot with fat layer exposed | CPT/HCPCS: 11043 ==

== ENCOUNTER 2023-12-24 15:34 | Observation (INO) | payer BC, SELFPAY ==
[2023-12-24] VITALS (20 sets, daily range): BP systolic 121–193; BP diastolic 81–90; PULSE 82–121; TEMP 36.3–36.5; O2SAT 96–100; BMI 29.9
--- NOTE | 2023-12-24 15:50 | ED_ITS ---
HPI - Wound/Laceration General Chief Complaint: Extremity Problem, Nontraumatic Stated Complaint: wound check Time Seen by Provider: 12/24/23 15:44 Related Data Home Medications ?Medication ?Instructions ?Recorded ?Confirmed apremilast 30 mg tablet (Otezla) 30 mg PO QDAY 01/28/23 12/24/23 montelukast 10 mg tablet 10 mg PO .QHS 01/28/23 12/24/23 rosuvastatin 20 mg tablet 20 mg PO QPM 01/28/23 12/24/23 vitamin B complex and vitamin C 1 cap PO QDAY 01/28/23 12/24/23 no.20-folic acid 1 mg capsule (Renal Caps) famotidine 40 mg tablet (Pepcid) 40 mg PO .qhs 01/29/23 12/24/23 insulin degludec 200 unit/mL (3 100 unit subcut DAILY 01/29/23 12/24/23 mL) subcutaneous pen (Tresiba FlexTouch U-200 insulin) insulin lispro 100 unit/mL 1 sliding scale dose subcut AC 01/29/23 12/24/23 subcutaneous pen (Humalog KwikPen (U-100) Insulin) tiotropium bromide 18 mcg capsule 1 cap inhalation DAILY PRN 01/29/23 12/24/23 with inhalation device (Spiriva shortness of breath or wheezing with HandiHaler) bupropion HCl 300 mg 24 hr tablet, 300 mg PO QDAY 12/24/23 12/24/23 extended release duloxetine 60 mg capsule,delayed 60 mg PO DAILY 12/24/23 12/24/23 release (Cymbalta) empagliflozin 25 mg tablet 12.5 mg PO DAILY 12/24/23 12/24/23 (Jardiance) esomeprazole magnesium 40 mg 40 mg PO QDAY 12/24/23 12/24/23 capsule,delayed release ferrous sulfate 325 mg (65 mg 325 mg PO .COMPLEX 12/24/23 12/24/23 iron) tablet (Feosol) finerenone 20 mg tablet (Kerendia) 20 mg PO QDAY 12/24/23 12/24/23 magnesium 250 mg tablet 250 mg PO DAILY 12/24/23 12/24/23 multivitamin with minerals-folic 1 tab PO QDAY 08/27/24 08/27/24 acid 400 mcg-lycopene 370 mcg tablet (One-A-Day Men's 50 Plus) tirzepatide 2.5 mg/0.5 mL 2.5 mg subcut QWEEK 12/24/23 12/24/23 subcutaneous pen injector (Checountimmyro) Allergies Allergy/AdvReac Type Severity Reaction Status Date / Time No Known Drug Allergies Allergy Verified 12/24/23 15:49 [facility] Medical History Arteriovenous fistula of right upper extremity ?I77.0 - Arteriovenous fistula, acquired (ICD-10) Chronic kidney disease ?N18.9 - Chronic kidney disease, unspecified (ICD-10) Diabetes ?E11.9 - Type 2 diabetes mellitus without complications (ICD-10) Hyperlipidemia ?E78.5 - Hyperlipidemia, unspecified (ICD-10) Immunocompromised ?D84.9 - Immunodeficiency, unspecified (ICD-10) Psoriasis ?L40.9 - Psoriasis, unspecified (ICD-10) Sepsis ?A41.9 - Sepsis, unspecified organism (ICD-10) Surgical History Amputation of left great toe ?S98.112A - Complete traumatic amputation of left great toe, initial encounter (ICD-10) History of appendectomy ?Z90.49 - Acquired absence of other specified parts of digestive tract (ICD- 10) History of cholecystectomy ?Z90.49 - Acquired absence of other specified parts of digestive tract (ICD- 10) History of transmetatarsal amputation of foot ?Z89.439 - Acquired absence of unspecified foot (ICD-10) Family History Mother Family history of CHF (congestive heart failure) Family history of diabetes mellitus Family history of hypertension Grandfather Family history of stroke Social History Within the past year, how often did you have a drink containing alcohol: never Score interpretation: A score less than 4 is consistent with normal alcohol consumption. Smoking status: Former smoker Non-prescribed substance use: denies use Discharge Plan Discharge Chief Complaint: Extremity Problem, Nontraumatic Prescriptions / Home Meds: No Action montelukast 10 mg tablet 10 mg PO .QHS Renal Caps 1 mg capsule 1 cap PO QDAY rosuvastatin 20 mg tablet 20 mg PO QPM Otezla 30 mg tablet 30 mg PO QDAY famotidine [Pepcid] 40 mg tablet 40 mg PO .qhs tiotropium bromide [Spiriva with HandiHaler] 18 mcg capsule, w/inhalation de vice 1 cap inhalation DAILY PRN (Reason: shortness of breath or wheezing) Rx Instructions: puncture 1 cap using device; one dose = 2 inhalations insulin degludec [Tresiba FlexTouch U-200] 200 unit/mL (3 mL) insulin pen 100 unit subcut DAILY insulin lispro [Humalog KwikPen Insulin] 100 unit/mL insulin pen 1 sliding scale dose subcut AC Rx Instructions: 2-6 units per sliding scale with meals duloxetine [Cymbalta] 60 mg capsule,delayed release(DR/EC) 60 mg PO DAILY magnesium 250 mg tablet 250 mg PO DAILY ferrous sulfate [Feosol] 325 mg (65 mg iron) tablet 325 mg PO .COMPLEX Rx Instructions: 325 mg orally 3 times per week; Jardiance 25 mg tablet 12.5 mg PO DAILY Mounjaro 2.5 mg/0.5 mL pen injector 2.5 mg subcut QWEEK Rx Instructions: for 4 weeks One-A-Day Men's 50 Plus 400-370 mcg tablet 1 tab PO QDAY bupropion HCl 300 mg tablet extended release 24 hr 300 mg PO QDAY esomeprazole magnesium 40 mg capsule,delayed release(DR/EC) 40 mg PO QDAY Kerendia 20 mg tablet 20 mg PO QDAY Print Language: Yoruba Referrals: GABRIEL JUAREZ DO [Primary Care Provider] - 1 week
--- NOTE | 2023-12-24 16:16 | XR_ITS ---
The [address] [address] Patient Name: RASHARD TAN MRN: [id number] date: 1960 Sex: M Assigned Patient Location: ER Current Patient Location: ER Accession/Order Number: [id number] Exam Date: 12/24/2023 16:43 Report Date: 12/24/2023 17:36 At the request of: ROSALIA KIM Procedure: XR foot LT min 3V EXAM: XR foot LT min 3V, XR tibia fibula LT 2V HISTORY: Infection COMPARISON: 04/09/2023 TECHNIQUE: 3 views of left foot and 4 images of left tibia-fibula FINDINGS: Status post forefoot amputation at the level of the tarsometatarsal joint. No cortical erosion or focal osteopenia. There is a small ulcer of the plantar mid foot. Overlying soft tissue margin is smooth. No acute abnormality of the tibia fibula. XR/XR foot LT min 3V IMPRESSION: No radiographic evidence of acute osteomyelitis. Foot MRI with contrast is recommended if clinically warranted. No acute fracture. Electronically authenticated by: NERIS KIM Date: 12/24/2023 17:36
--- NOTE | 2023-12-24 16:16 | XR_ITS ---
The [address] [address] Patient Name: RASHARD TAN MRN: [id number] date: 1960 Sex: M Assigned Patient Location: ER Current Patient Location: ER Accession/Order Number: [id number] Exam Date: 12/24/2023 16:43 Report Date: 12/24/2023 17:36 At the request of: ROSALIA KIM Procedure: XR tibia fibula LT 2V EXAM: XR foot LT min 3V, XR tibia fibula LT 2V HISTORY: Infection COMPARISON: 04/09/2023 TECHNIQUE: 3 views of left foot and 4 images of left tibia-fibula FINDINGS: Status post forefoot amputation at the level of the tarsometatarsal joint. No cortical erosion or focal osteopenia. There is a small ulcer of the plantar mid foot. Overlying soft tissue margin is smooth. No acute abnormality of the tibia fibula. XR/XR tibia fibula LT 2V IMPRESSION: No radiographic evidence of acute osteomyelitis. Foot MRI with contrast is recommended if clinically warranted. No acute fracture. Electronically authenticated by: NERIS KIM Date: 12/24/2023 17:36
[2023-12-24 16:49] LABS: Basophils Absolute Auto 0.1 10^3/uL (0.0-0.1); Basophils Percent Auto 0.6 % (0.2-2.0); Eosinophils Absolute Auto 0.7 10^3/uL (0.0-0.7); Eosinophils Percent Auto 5.4 % (0.9-7.0); Hematocrit 39.5 % (42.0-54.0); Hemoglobin 13.2 g/dL (14.0-18.0); Immature Granulocytes Abs Auto 0.27 10^3/uL (0.00-0.03); Immature Granulocytes Pct Auto 2.2 % (0.0-0.5); Lymphocytes Absolute Auto 2.2 10^3/uL (1.2-3.8); Mean Corpuscular HGB Conc 33.4 g/dL (29.9-35.2); Mean Corpuscular Hemoglobin 29.2 pg (25.9-34.0); Mean Corpuscular Volume 87.4 fL (80.0-94.0); Monocytes Absolute Auto 1.1 10^3/uL (0.3-0.8); Monocytes Percent Auto 9.4 % (1.7-12.0); Neutrophils Absolute Auto 7.8 10^3/uL (1.4-6.5); Neutrophils Percent Auto 64.4 % (43.0-75.0); Platelet Count 257 10^3/uL (150-450); Red Blood Count 4.52 10^6/uL (4.70-6.10); Red Cell Distribution Width 13.8 % (11.0-15.0); White Blood Count 12.1 10^3/uL (4.0-11.0)
[2023-12-24] MEDS: 0.9 % SODIUM CHLORIDE 1,000 ML 999 ML IV (16:50)
[2023-12-24] MEDS: VANCOMYCIN HCL 1,000 MG in 0.9 % SODIUM CHLORIDE 250 ML 250 MG IV (16:57)
[2023-12-24 17:04] LABS: Alanine Aminotransferase 30 U/L (16-63); Albumin Globulin Ratio 0.5; Albumin Level 2.5 g/dL (3.4-5.0); Alkaline Phosphatase 106 U/L (46-116); Anion Gap 14.1; Aspartate Amino Transferase 17 U/L (15-37); BUN Creatinine Ratio 13.7; Bilirubin Total 0.4 mg/dL (0.2-1.0); Calcium 9.4 mg/dL (8.5-10.1); Carbon Dioxide 21.7 mmol/L (21.0-32.0); Chloride 99 mmol/L (98-107); Estimated GFR (African America 20 (>=60); Estimated GFR (Non-African Ame 17 (>=60); Globulin 4.6 g/dL; Glucose 382 mg/dL (74-106); Potassium 5.8 mmol/L (3.5-5.1); Sodium 129 mmol/L (136-145); Total Protein 7.1 g/dL (6.4-8.2)
[2023-12-24 17:12] LABS: Lactate/Lactic Acid 0.8 mmol/L (0.4-2.0)
--- NOTE | 2023-12-24 17:12 | ECG_ITS ---
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
[2023-12-24] MEDS: SODIUM BICARBONATE 8.4 % 50 MEQ/50 ML SYRINGE IV (17:44)
[2023-12-24] MEDS: INSULIN REGULAR, HUMAN (100 UNIT/ML) 10 ML MDV 10 UNIT IV (17:49)
[2023-12-24] MEDS: DEXTROSE 50 %-WATER 25 GM/50 ML SYRINGE IV (17:51)
[2023-12-24] MEDS: SODIUM POLYSTYRENE SULFON 15 GM/60 ML ORAL.SUSP KAYEXALATE PO (17:53)
--- NOTE | 2023-12-24 18:56 | PC.NURSE ---
admitted to room 274, oriented to room and call light. at bedside. dinner at bedside. report given to following shift.
--- OUTSIDE RECORDS SUMMARY | 2023-12-24 19:05 | XMS_ITS | CCD ---
Author Organization [facility] Care Team Providers Care Lidder Name Role Phone Jose Juarez Primary Care Provider [phone] Eugene Morel Admit Provider Eugene Morel Attending Provider [phone] Gordon Ewing Attending Provider Gautam Bazan Attending Provider [phone] SAVANNAH REYNOLDS Admitting Unavailable SAVANNAH REYNOLDS Attending Unavailable JOSE JUAREZ Primary Care Unavailable JOSE JUAREZ Referring Unavailable [place] Procedure Practitioner Unavailab TRISHA Ozuna Surgeon Unavailable NIMA WYNNE Surgeon Unavailable [place] Procedure Practitioner Unavailab Jose Andres Primary Care Provider [phone] Eugene Morel Admit Provider [phone] Gordon Ewing Attending Provider Gautam Bazan Attending Provider Latrice Lehman Attending Provider PROVIDER, UNKNOWN Attending Unavailable PROVIDER, UNKNOWN Admitting Unavailable Kike Pollack Unavailable CHINO ELLIOTT Attending Unavailable DR JOSE JUAREZ Primary Care Unavailable CHINO ELLIOTT Admitting Unavailable DR PRISCA SANDERSON Consulting Unavailable CHINO ELLIOTT Consulting Unavailable CHINO ELLIOTT Attending Unavailable CHINO ELLIOTT Consulting Unavailable DR JSOE JUAREZ Primary Care Unavailable CHINO ELLIOTT Admitting [...] Consulting Unavailable HIGHLANDER, PETER D Attending Unavailable VALKERMIT, DR GARCIA Primary [...] JOSE L Primary Care Unavailable VALONE JR, OJSE L Referring Unavailable VALONE JR, JOSE L Primary Care Unavailable VALONE JR, JOSE L Referring Unavailable VALONE JR, JOSE L Primary Care Unavailable JOSEANDER, PETER D Referring Unavailable VALONE JR, JOSE L Primary Care Unavailable Unavailable Unavailable Unavailable Allergies Allergy Classification Reported Allergen(s) Allergy Type Date of Onset Reaction(s) Facility exenatide (1 source) exenatide Drug Allergy 07-14-19 [facility] Repository NSAIDs (5 sources) celecoxib; Translations: [Celebrex] Drug Allergy 07-14-19 Difficulty Breathing [facility] Repository Phenolphthalein (1 source) Phenolphthalein Drug Allergy 07-14-19 21 [facility] Repository (4 sources) celecoxib; Translations: [celecoxib] Drug Allergy 07-21-19 Difficulty Breathing, bad for kidney [facility] Repository (3 sources) Aspirin; Translations: [ASPIRIN] Drug Allergy 07-21-19 bad for kidney [facility] Repository (1 source) Amoxicillin Drug Allergy 07-09-19 [facility] Repository (1 source) celecoxib Drug Allergy 07-09-19 [facility] Repository (1 source) exenatide Drug Allergy 07-09-19 [facility] Repository (1 source) Phenolphthalein Drug Allergy 07-09-19 [facility] Repository (2 sources) exenatide; Translations: [EXENATIDE] Drug [...] Atorvastatin Active 40 MG PO Every evening 30 August 23, 2020 10:23am B Complex With [...] 3 Chronic Other aftercare (7 sources) Other penitentiary (current) drug therapy; Translations: [OTH HALF-WAY CURRENT DRUG THERAPY] Onset: 3 Episodic Other [...] Onset: 06-27-2022 Episodic Other aftercare (1 source) 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; 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] Onset: 01-25-2022 Episodic [...] BLOOD UREA NITROGENon 2023 Urea nitrogen [Mass/Vol] 50 mg/dL High 5-27 [facility] Comment on above: Performed By: #### B ALCON CBCA, 1987-08, 15305-3 #### [facility] ([id number]) [address] [place] [address] 18589 #### 31771-0 #### [facility] ([id number]) [address] [facility], [address] [place] [address] CBC AND AUTO DIFFon 12-16-19 24 ABSOLUTE BASOPHIL 0.0 X10E9/L Normal 0.0-0.2 [facility] Comment on above: Performed By: #### B ALCON CBCA, 1987-08, #### [facility] ([id number]) [address] [place] [address] 84954 #### 09079-8 #### [facility] ([id number]) [address] [facility], [address] [place] [address] ABSOLUTE NEUTROPHIL 5.7 X10E9/L Normal 1.5-6.6 [facility] Comment on above: Performed By: #### Laura RONDON, CBCA, 1987-08, 76333-9 #### [facility] ([id number]) [address] [place] [address] 86051 #### 99103-8 #### [facility] ([id number]) [address] [facility], [address] [place] [address] Basophils/100 WBC (Bld) 0.4 % Normal [facility] Comment on above: Performed By: #### Laura RONDON, CBCA, 1987-08, #### [facility] ([id number]) [address] [place] [address] 37385 #### 86561-8 #### [facility] ([id number]) [address] [facility], [address] [place] [address] Eosinophils (Bld) [#/Vol] 0.4 10*3/uL Normal 0.0-0.4 [facility] Comment on above: Performed By: #### B ALCON, CBCA, 1987-08, #### [facility] ([id number]) [address] [place] [address] 23001 #### 87577-6 #### [facility] ([id number]) [address] [facility], [address] [place] [address] Eosinophils/100 WBC (Bld) 4.8 % Normal [facility] Comment on above: Performed By: #### B ALCON, CBCA, 1987-08, #### [facility] ([id number]) [address] [place] [address] 74630 #### 07360-5 #### [facility] ([id number]) [address] [facility], [address] [place] [address] Erythrocyte distribution width (RBC) [Ratio] 14.7 % Normal 11.5-15.0 [facility] Comment on above: Performed By: #### Laura RONDON, CBCA, 1987-08, 49016-9 #### [facility] ([id number]) [address] [place] [address] 90946 #### 15630-6 #### [facility] ([id number]) [address] [facility], [address] [place] [address] Hematocrit (Bld) [Volume fraction] 39.0 % Normal 39-49 [facility] Comment on above: Performed By: #### Laura RONDON, CBCA, 1987-08, #### [facility] ([id number]) [address] [place] [address] 65080 #### 66508-2 #### [facility] ([id number]) [address], [address] [place] [address] Hemoglobin (Bld) [Mass/Vol] 13.3 g/dL Normal 13.0-17.0 [facility] Comment on above: Performed By: #### B MP, CBCA, 1987-08, #### [facility] ([id number]) [address] [place] [address] 83034 #### 94353-8 #### [facility] ([id number]) [address], [address] [place] [address] Lymphocytes (Bld) [#/Vol] 1.7 10*3/uL Normal 1.0-3.5 [facility] Comment on above: Performed By: #### B ALCON, CBCA, 1987-08, #### [facility] ([id number]) [address] [place] [address] 34574 #### 36805-8 #### [facility] ([id number]) [address] [facility], [address] [place] [address] Lymphocytes/100 WBC (Bld) 19.3 % Normal [facility] Comment on above: Performed By: #### B ALCON, CBCA, 1987-08, #### [facility] ([id number]) [address] [place] [address] 87644 #### 36054-5 #### [facility] ([id number]) [address], [address] [place] [address] MCH (RBC) [Entitic mass] 29.8 pg Normal 27-34 [facility] Comment on above: Performed By: #### B MP, CBCA, 1987-08, #### [facility] ([id number]) [address] [place] [address] 94681 #### 07061-4 #### [facility] ([id number]) [address], [address] [place] [address] MCHC (RBC) [Mass/Vol] 34.0 g/dL Normal 32-36 [facility] Comment on above: Performed By: #### Laura RONDON, CBCA, 1987-08, #### [facility] ([id number]) [address] [place] [address] 13546 #### 55282-7 #### [facility] ([id number]) [address], [address] [place] [address] MCV (RBC) [Entitic vol] 88 fL Normal 80-100 [facility] Comment on above: Performed By: #### Laura RONDON, CBCA, 1987-08, #### [facility] ([id number]) [address] [place] [address] 46900 #### 67704-3 #### [facility] ([id number]) [address] [facility], [address] [place] [address] Monocytes (Bld) [#/Vol] 0.8 10*3/uL Normal 0-0.9 [facility] Comment on above: Performed By: #### Laura RONDON, CBCA, 1987-08, #### [facility] ([id number]) [address] [place] [address] 92366 #### 88329-3 #### [facility] ([id number]) [address] [facility], [address] [place] [address] Monocytes/100 WBC (Bld) 8.8 % Normal [facility] Comment on above: Performed By: #### Laura RONDON, CBCA, 1987-08, #### [facility] ([id number]) [address] [place] [address] 76534 #### 59686-6 #### [facility] ([id number]) [address] [facility], [address] [place] [address] Neutrophils/100 WBC (Bld) 66.7 % Normal [facility] Comment on above: Performed By: #### B MP, CBCA, 1987-08, 06519-1 #### [facility] ([id number]) [address] [place] [address] 78660 #### 25606-1 #### [facility] ([id number]) [address] [facility], [address] [place] [address] Platelet mean volume (Bld) [Entitic vol] 7.7 fL Normal 7-12 [facility] Comment on above: Performed By: #### B MP, CBCA, 1987-08, 69231-0 #### [facility] ([id number]) [address] [place] [address] 07210 #### 52768-5 #### [facility] ([id number]) [address] [facility], [address] [place] [address] Platelets (Bld) [#/Vol] 286 10*3/uL Normal 150-450 [facility] Comment on above: Performed By: #### B MP, CBCA, 1987-08, 53239-5 #### [facility] ([id number]) [address] [place] [address] 62806 #### 69210-4 #### [facility] ([id number]) [address] [facility], [address] [place] [address] RBC COUNT 4.46 X10E12/L Normal 4.10-5.70 [facility] Comment on above: Performed By: #### B MP, CBCA, 1987-08, 39939-6 #### [facility] ([id number]) [address] [place] [address] 23927 #### 12449-5 #### [facility] ([id number]) [address] [address] WBC (Bld) [#/Vol] 8.6 10*3/uL Normal 4.0-11.0 [facility] Comment on above: Performed By: #### B JAMES RONDON, 1987-08, 92367-2 #### [facility] ([id number]) [address] [place] [address] 87338 #### 75366-1 #### [facility] ([id number]) [address] [address] CREATININEon 12-16-2023 Creatinine [Mass/Vol] 3.32 mg/dL High 0.70-1.20 [facility] Comment on above: Result Comment: METH OD TRACEABLE TO IDMS STANDARD Performed By: #### B JAMES RONDON, 1987-08, 43995-8 #### [facility] ([id number]) [address] [place] [address] 40316 #### 54695-3 #### [facility] ([id number]) [address] [address] GFR/1.73 sq M.predicted among non-blacks MDRD (S/P/Bld) [Vol rate/Area] 20 mL/min/{1.73_m2} Low >59 [facility] Comment on above: Result Comment: Reported eGFR is based on the CKD-EPI 2020 equation that does not use a race coefficient. Performed By: #### B JAMES RONDON, 1987-08, 62962-6 #### [facility] ([id number]) [address] [place] [address] 09689 #### 89552-7 #### [facility] ([id number]) [address] [address] ELECTROLYTESon 12-16-2023 Anion gap [Moles/Vol] 8 mmol/L Normal 5-15 [facility] Comment on above: Performed By: #### JAMES Sanchez MP, 1987-08, #### [facility] ([id number]) [address] [place] [address] 52828 #### 29067-8 #### [facility] ([id number]) [address], [address] [place] [address] Chloride [Moles/Vol] 103 mmol/L Normal 98-109 [facility] Comment on above: Performed By: #### JAMES Sanchez MP, 1987-08, #### [facility] ([id number]) [address] [place] [address] 28207 #### 72838-5 #### [facility] ([id number]) [address] [facility], [address] [place] [address] CO2 [Moles/Vol] 18 mmol/L Low 22-32 [facility] Comment on above: Performed By: #### JAMES Sanchez MP, 1987-08, #### [facility] ([id number]) [address] [place] [address] 48894 #### 51747-4 #### [facility] ([id number]) [address] [facility], [address] [place] [address] Potassium [Moles/Vol] 4.5 mmol/L Normal 3.5-5.0 [facility] Comment on above: Performed By: #### JAMES Sanchez MP, 1987-08, #### [facility] ([id number]) [address] [place] [address] 52516 #### 58872-8 #### [facility] ([id number]) [address] [facility], [address] [place] [address] Sodium [Moles/Vol] 129 mmol/L Low 134-146 [facility] Comment on above: Performed By: #### B MP, CBCA, 1987-, 11845-9 #### [facility] ([id number]) [address] [facility], [place] [address] #### 73046-3 #### [facility] ([id number]) [address], [address] [place] [address] BLOOD UREA NITROGENon 2023 Urea nitrogen [Mass/Vol] 41 mg/dL High 5-27 [facility] Comment on above: Performed By: #### C BCA, 3094-0, SOLUTION SPECIALIST, ELEC #### [facility] ([id number]) [address], [address] [place] [address] CBC AND AUTO DIFFon 11-19-19 24 ABSOLUTE BASOPHIL 0.2 X10E9/L Normal 0.0-0.2 [facility] Comment on above: Performed By: #### C BCA, 3094-0, SOLUTION SPECIALIST, ELEC #### [facility] ([id number]) [address], [address] [place] [address] Basophils/100 WBC (Bld) 1.9 % Normal [facility] Comment on above: Performed By: #### C BCA, 3094-0, SOLUTION SPECIALIST, ELEC #### [facility] ([id number]) [address], [address] [place] [address] KATHERINE 1+ Abnormal NONE [facility] Comment on above: Performed By: #### C BCA, 3094-0, SOLUTION SPECIALIST, ELEC #### [facility] ([id number]) [address], [address] [place] [address] Eosinophils (Bld) [#/Vol] 0.4 10*3/uL Normal 0.0-0.4 [facility] Comment on above: Performed By: #### C BCA, 3094-0, SOLUTION SPECIALIST, ELEC #### [facility] ([id number]) [address], [facility] [address] [place] [address] Eosinophils/100 WBC (Bld) 3.8 % Normal [facility] Comment on above: Performed By: #### C BCA, 3094-0, SOLUTION SPECIALIST, ELEC #### [facility] ([id number]) [address], [facility] [address] [place] [address] Erythrocyte distribution width (RBC) [Ratio] 14.4 % Normal 11.5-15.0 [facility] Comment on above: Performed By: #### C BCA, 3094-0, SOLUTION SPECIALIST, ELEC #### [facility] ([id number]) [address], [facility] [address] [place] [address] Hematocrit (Bld) [Volume fraction] 40.3 % Normal 39-49 [facility] Comment on above: Performed By: #### C BCA, 3094-0, SOLUTION SPECIALIST, ELEC #### [facility] ([id number]) [address], [facility] [address] [place] [address] Hemoglobin (Bld) [Mass/Vol] 13.4 g/dL Normal 13.0-17.0 [facility] Comment on above: Performed By: #### C BCA, 3094-0, SOLUTION SPECIALIST, ELEC #### [facility] ([id number]) [address], [facility] [address] [place] [address] Lymphocytes (Bld) [#/Vol] 2.0 10*3/uL Normal 1.0-3.5 [facility] Comment on above: Performed By: #### C BCA, 3094-0, SOLUTION SPECIALIST, ELEC #### [facility] ([id number]) [address], [facility] [address] [place] [address] Lymphocytes/100 WBC (Bld) 21.7 % Normal [facility] Comment on above: Performed By: #### C BCA, 3094-0, SOLUTION SPECIALIST, ELEC #### [facility] ([id number]) [address], [address] [place] [address] MCH (RBC) [Entitic mass] 29.6 pg Normal 27-34 [facility] Comment on above: Performed By: #### C BCA, 3094-0, SOLUTION SPECIALIST, ELEC #### [facility] ([id number]) [address], [facility] [address] [place] [address] MCHC (RBC) [Mass/Vol] 33.4 g/dL Normal 32-36 [facility] Comment on above: Performed By: #### C BCA, 3094-0, SOLUTION SPECIALIST, ELEC #### [facility] ([id number]) [address] [address] [place] [address] MCV (RBC) [Entitic vol] 89 fL Normal 80-100 [facility] Comment on above: Performed By: #### C BCA, 3094-0, SOLUTION SPECIALIST, ELEC #### [facility] ([id number]) [address], [facility] [address] [place] [address] Monocytes (Bld) [#/Vol] 0.6 10*3/uL Normal 0-0.9 [facility] Comment on above: Performed By: #### C BCA, 3094-0, SOLUTION SPECIALIST, ELEC #### [facility] ([id number]) [address], [facility] [address] [place] [address] Monocytes/100 WBC (Bld) 6.6 % Normal [facility] Comment on above: Performed By: #### C BCA, 3094-0, SOLUTION SPECIALIST, ELEC #### [facility] ([id number]) [address] [address] [place] [address] Neutrophils (Bld) [#/Vol] 6.1 10*3/uL Normal 1.5-6.6 [facility] Comment on above: Performed By: #### C BCA, 3094-0, SOLUTION SPECIALIST, ELEC #### [facility] ([id number]) [address] [address] [place] [address] Platelet mean volume (Bld) [Entitic vol] 8.0 fL Normal 7-12 [facility] Comment on above: Performed By: #### C BCA, 3094-0, SOLUTION SPECIALIST, ELEC #### [facility] ([id number]) [address] [address] Platelets (Bld) [#/Vol] 253 10*3/uL Normal 150-450 [facility] Comment on above: Performed By: #### C BCA, 3094-0, SOLUTION SPECIALIST, ELEC #### [facility] ([id number]) [address] [address] [place] [address] RBC COUNT 4.54 X10E12/L Normal 4.10-5.70 [facility] Comment on above: Performed By: #### C BCA, 3094-0, SOLUTION SPECIALIST, ELEC #### [facility] ([id number]) [address] [address] SEG NEUTROPHIL 66.0 % Normal [facility] Comment on above: Performed By: #### C BCA, 3094-0, SOLUTION SPECIALIST, ELEC #### [facility] ([id number]) [address] [address] WBC (Bld) [#/Vol] 9.3 10*3/uL Normal 4.0-11.0 [facility] Comment on above: Performed By: #### C BCA, 3094-0, SOLUTION SPECIALIST, ELEC #### [facility] ([id number]) [address] [address] CREATININEon 11-19-2023 Creatinine [Mass/Vol] 3.18 mg/dL High 0.60-1.30 [facility] Comment on above: Result Comment: METH OD TRACEABLE TO IDMS STANDARD Performed By: #### C BCA, 3094-0, SOLUTION SPECIALIST, ELEC #### [facility] ([id number]) [address], [address] [place] [address] GFR/1.73 sq M.predicted among non-blacks MDRD (S/P/Bld) [Vol rate/Area] 21 mL/min/{1.73_m2} Low >59 [facility] Comment on above: Result Comment: Reported eGFR is based on the CKD-EPI 2020 equation that does not use a race coefficient. Performed By: #### C BCA, 3094-0, SOLUTION SPECIALIST, ELEC #### [facility] ([id number]) [address], [address] [place] [address] ELECTROLYTESon 11-19-2023 Anion gap [Moles/Vol] 9 mmol/L Normal 5-15 [facility] Comment on above: Performed By: #### C BCA, 3094-0, SOLUTION SPECIALIST, ELEC #### [facility] ([id number]) [address], [address] [place] [address] Chloride [Moles/Vol] 100 mmol/L Normal 98-109 [facility] Comment on above: Performed By: #### C BCA, 3094-0, SOLUTION SPECIALIST, ELEC #### [facility] ([id number]) [address], [address] [place] [address] CO2 [Moles/Vol] 22 mmol/L Normal 22-32 [facility] Comment on above: Performed By: #### C BCA, 3094-0, SOLUTION SPECIALIST, ELEC #### [facility] ([id number]) [address], [address] [place] [address] Potassium [Moles/Vol] 3.9 mmol/L Normal 3.5-5.0 [facility] Comment on above: Performed By: #### C BCA, 3094-0, SOLUTION SPECIALIST, ELEC #### [facility] ([id number]) [address], [address] [place] [address] Sodium [Moles/Vol] 131 mmol/L Low 134-146 [facility] Comment on above: Performed By: #### C BCA, 3094-0, SOLUTION SPECIALIST, ELEC #### [facility] ([id number]) [address] [place] [address] BLOOD UREA NITROGENon 2023 Urea nitrogen [Mass/Vol] 35 mg/dL High 5-27 [facility] Comment on above: Performed By: #### B MP, CBCA, 1987-08, 61128-5 #### [facility] ([id number]) [address] [place] [address] #### 38131-9 #### [facility] ([id number]) [address], [address] [place] [address] CALCIUMon 10-23-2023 Calcium [Mass/Vol] 8.1 mg/dL Low 8.5-10.5 [facility] Comment on above: Performed By: #### B MP, CBCA, 1987-08, 08753-1 #### [facility] ([id number]) [address] [place] [address] #### 01496-1 #### [facility] ([id number]) [address], [address] [place] [address] CBC AND AUTO DIFFon 10-23-19 24 ABSOLUTE BASOPHIL 0.0 X10E9/L Normal 0.0-0.2 [facility] Comment on above: Performed By: #### B MP, CBCA, 1987-08, 71276-6 #### [facility] ([id number]) [address] [place] [address] #### 72139-9 #### [facility] ([id number]) [address], [address] [place] [address] ABSOLUTE NEUTROPHIL 5.4 X10E9/L Normal 1.5-6.6 [facility] Comment on above: Performed By: #### B MP, CBCA, 1987-08, 82942-0 #### [facility] ([id number]) [address] [place] [address] #### [id number] #### [facility] ([id number]) [address], [address] [place] [address] Basophils/100 WBC (Bld) 0.5 % Normal [facility] Comment on above: Performed By: #### B MP, CBCA, 1987-08, #### [facility] ([id number]) [address] [place] [address] #### 92176-3 #### [facility] ([id number]) [address], [address] [place] [address] Eosinophils (Bld) [#/Vol] 0.3 10*3/uL Normal 0.0-0.4 [facility] Comment on above: Performed By: #### B ALCON, CBCA, 1987-08, 02757-9 #### [facility] ([id number]) [address] [place] [address] #### 00930-7 #### [facility] ([id number]) [address], [address] [place] [address] Eosinophils/100 WBC (Bld) 3.2 % Normal [facility] Comment on above: Performed By: #### B MP, CBCA, 1987-08, 99319-0 #### [facility] ([id number]) [address] [place] [address] #### 96490-5 #### [facility] ([id number]) [address], [address] [place] [address] Erythrocyte distribution width (RBC) [Ratio] 14.4 % Normal 11.5-15.0 [facility] Comment on above: Performed By: #### Laura RONDON CBCA, 1987-08, 91080-0 #### [facility] ([id number]) [address] [place] [address] #### 38243-9 #### [facility] LAB ([id number]) [address], [address] [place] [address] Hematocrit (Bld) [Volume fraction] 39.7 % Normal 39-49 [facility] Comment on above: Performed By: #### Laura RONDON CBCA, 1987-08, 46435-2 #### [facility] ([id number]) [address] [place] [address] 81470 #### 56665-0 #### [facility] ([id number]) [address] [facility], [address] [place] [address] Hemoglobin (Bld) [Mass/Vol] 13.1 g/dL Normal 13.0-17.0 [facility] Comment on above: Performed By: #### Laura RONDON CBCA, 1987-08, 50742-0 #### [facility] ([id number]) [address] [place] [address] 70716 #### 38919-3 #### [facility] ([id number]) [address], [address] [place] [address] Lymphocytes (Bld) [#/Vol] 2.1 10*3/uL Normal 1.0-3.5 [facility] Comment on above: Performed By: #### Laura RONDON CBCA, 1987-08, 50640-5 #### [facility] ([id number]) [address] [place] [address] 07148 #### 76767-1 #### [facility] ([id number]) [address], [address] [place] [address] Lymphocytes/100 WBC (Bld) 24.5 % Normal [facility] Comment on above: Performed By: #### Laura RONDON CBCA, 1987-08, 87293-9 #### [facility] ([id number]) [address] [place] [address] 93217 #### 77378-8 #### [facility] ([id number]) [address], [address] [place] [address] MCH (RBC) [Entitic mass] 29.0 pg Normal 27-34 [facility] Comment on above: Performed By: #### Laura RONDON CBCA, 1987-08, 10690-3 #### [facility] ([id number]) [address] [place] [address] 92900 #### 24377-3 #### [facility] ([id number]) [address], [address] [place] [address] MCHC (RBC) [Mass/Vol] 32.9 g/dL Normal 32-36 [facility] Comment on above: Performed By: #### Laura RONDON CBCA, 1987-08, #### [facility] ([id number]) [address] [place] [address] 31307 #### 65896-0 #### [facility] ([id number]) [address], [address] [place] [address] MCV (RBC) [Entitic vol] 88 fL Normal 80-100 [facility] Comment on above: Performed By: #### Laura RONDON CBCA, 1987-08, #### [facility] ([id number]) [address] [place] [address] 43263 #### 32086-8 #### [facility] ([id number]) [address], [address] [place] [address] Monocytes (Bld) [#/Vol] 0.8 10*3/uL Normal 0-0.9 [facility] Comment on above: Performed By: #### Laura RONDON, CBCA, 1987-08, #### [facility] ([id number]) [address] [place] [address] 04622 #### 77607-1 #### [facility] ([id number]) [address] [facility], [address] [place] [address] Monocytes/100 WBC (Bld) 9.2 % Normal [facility] Comment on above: Performed By: #### Laura RONDON CBCA, 1987-08, #### [facility] ([id number]) [address] [place] [address] 19658 #### 98954-7 #### [facility] ([id number]) [address] [facility], [address] [place] [address] Neutrophils/100 WBC (Bld) 62.6 % Normal [facility] Comment on above: Performed By: #### Laura RONDON CBCA, 1987-08, #### [facility] ([id number]) [address] [place] [address] 69193 #### 22972-6 #### [facility] ([id number]) [address] [facility], [address] [place] [address] Platelet mean volume (Bld) [Entitic vol] 8.6 fL Normal 7-12 [facility] Comment on above: Performed By: #### Laura RONDON CBCA, 1987-08, #### [facility] ([id number]) [address] [place] [address] 68058 #### 39102-3 #### [facility] ([id number]) [address] [facility], [address] [place] [address] Platelets (Bld) [#/Vol] 247 10*3/uL Normal 150-450 [facility] Comment on above: Performed By: #### B ALCON CBCA, 1987-08, #### [facility] ([id number]) [address] [place] [address] 17174 #### 02707-8 #### [facility] ([id number]) [address] [place] [address], [facility] [address] [place] [address] RBC COUNT 4.51 X10E12/L Normal 4.10-5.70 [facility] Comment on above: Performed By: #### B ALCON CBCA, 1987-08, #### [facility] ([id number]) [address] [place] [address] 52835 #### 41971-0 #### [facility] ([id number]) [address] [place] [address], [address] [address] WBC (Bld) [#/Vol] 8.5 10*3/uL Normal 4.0-11.0 [facility] Comment on above: Performed By: #### B ALCON CBCA, 1987-08, #### [facility] ([id number]) [address] [place] [address] 07548 #### 73415-2 #### [facility] ([id number]) [address] [place] [address], [facility] [address] [place] [address] CREATININEon 10-23-2023 Creatinine [Mass/Vol] 2.69 mg/dL High 0.70-1.20 [facility] Comment on above: Result Comment: METH OD TRACEABLE TO IDMS STANDARD Performed By: #### B ALCON CBCA, 1987-08, #### [facility] ([id number]) [address] [place] [address] 08607 #### 05559-4 #### [facility] ([id number]) [address], [address] [place] [address] GFR/1.73 sq M.predicted among non-blacks MDRD (S/P/Bld) [Vol rate/Area] 26 mL/min/{1.73_m2} Low >59 [facility] Comment on above: Result Comment: Reported eGFR is based on the CKD-EPI 2020 equation that does not use a race coefficient. Performed By: #### B JAMES RONDON, 1987-08, 61001-6 #### [facility] ([id number]) [address] [place] [address] 16279 #### 48504-5 #### [facility] ([id number]) [address], [address] [place] [address] Calcium.ionized (Bld) [Moles /Vol]on 10-23-2023 PORTABLE ICA 4.8 mg/dL Normal 4.5-5.3 [facility] Comment on above: Performed By: #### B JAMES RONDON, 1987-08, 40134-0 #### [facility] ([id number]) [address] [place] [address] 99948 #### 02523-1 #### [facility] ([id number]) [address], [address] [place] [address] ELECTROLYTESon 10-23-2023 Anion gap [Moles/Vol] 5 mmol/L Normal 5-15 [facility] Comment on above: Performed By: #### JAMES Sanchez MP, 1987-08, 55149-8 #### [facility] ([id number]) [address] [place] [address] 28030 #### 98857-1 #### [facility] ([id number]) [address], [address] [place] [address] Chloride [Moles/Vol] 108 mmol/L Normal 98-109 [facility] Comment on above: Performed By: #### JAMES Sanchez MP, 1987-08, 55407-4 #### [facility] ([id number]) [address] [place] [address] 31535 #### 89733-5 #### [facility] ([id number]) [address], [address] [place] [address] CO2 [Moles/Vol] 18 mmol/L Low 22-32 [facility] Comment on above: Performed By: #### JAMES Sanchez MP, 1987-08, 59583-5 #### [facility] ([id number]) [address] [place] [address] 09547 #### 92306-6 #### [facility] ([id number]) [address], [address] [place] [address] Potassium [Moles/Vol] 4.1 mmol/L Normal 3.5-5.0 [facility] Comment on above: Performed By: #### JAMES Sanchez MP, 1987-08, 81808-5 #### [facility] ([id number]) [address] [place] [address] 00223 #### 08157-1 #### [facility] ([id number]) [address], [address] [place] [address] Sodium [Moles/Vol] 131 mmol/L Low 134-146 [facility] Comment on above: Performed By: #### JAMES Sanchez MP, 1987-08, 76557-8 #### [facility] ([id number]) [address] [place] [address] 84433 #### 28390-3 #### [facility] ([id number]) [address], [address] [place] [address] ESR Photometric method (Bld) [Velocity]on 10-23-2023 ESR, ERYTHROCYTE SEDIMENTATION RATE 89 mm/h High 0-20 [facility] Comment on above: Performed By: #### B JAMES RONDON, 1987-08, 46018-4 #### [facility] ([id number]) [address] [place] [address] 55909 #### 17878-6 #### [facility] ([id number]) [address] [facility], [address] [place] [address] HGB A1C (GLYCO-HGB)on 2023 Glucose [Mass/Vol] 235 mg/dL Normal [facility] Comment on above: Performed By: #### B JAMES RONDON, 11889-8 #### [facility] ([id number]) [address] [place] [address] 34530 #### 42151-6 #### [facility] ([id number]) [address] [facility], [address] [place] [address] HbA1c (Bld) [Mass fraction] 9.8 % High 4.4-5.6 [facility] Comment on above: Result Comment: NOTE ADA Guidelines Result HgbA1c Normal : less than 5.7 % Prediabetes : 5.7 % to 6.4 % Diabetes : > 6.4 % Use with caution in patients with abnormal hemoglobin variants as the half-life of red blood cells and in vivo glycation rates are affected. Performed By: #### B JAMES RONDON, 1987-08, 93768-6 #### [facility] ([id number]) [address] [place] [address] 07258 #### 29353-0 #### [facility] ([id number]) [address] [facility], [address] [place] [address] LIVER PANELon 10-23-2023 Albumin [Mass/Vol] 2.8 g/dL Low 3.2-5.3 [facility] Comment on above: Performed By: #### JAMES Sanchez MP, 1987-08, 55379-0 #### [facility] ([id number]) [address] [place] [address] 66558 #### 42371-2 #### [facility] ([id number]) [address], [address] [place] [address] ALP [Catalytic activity/Vol] 86 U/L Normal 39-130 [facility] Comment on above: Performed By: #### JAMES Sanchez MP, 1987-08, 80050-5 #### [facility] ([id number]) [address] [place] [address] 97055 #### 24461-2 #### [facility] ([id number]) [address], [address] [place] [address] ALT [Catalytic activity/Vol] 19 U/L Normal 0-40 [facility] Comment on above: Performed By: #### JAMES Sanchez MP, 1987-08, 54653-2 #### [facility] ([id number]) [address] [place] [address] 76520 #### 17810-9 #### [facility] ([id number]) [address], [address] [place] [address] AST [Catalytic activity/Vol] 15 U/L Normal 0-41 [facility] Comment on above: Performed By: #### JAMES Sanchez MP, 1987-08, 51102-7 #### [facility] ([id number]) [address] [place] [address] 61480 #### 68890-1 #### [facility] ([id number]) [address], [address] [place] [address] Bilirubin [Mass/Vol] 0.5 mg/dL Normal 0.3-1.2 [facility] Comment on above: Performed By: #### JAMES Sanchez MP, 1987-08, 05532-0 #### [facility] ([id number]) [address] [place] [address] 33445 #### 30094-7 #### [facility] ([id number]) [address] [facility], [address] [place] [address] Bilirubin.indirect [Mass/Vol] mg/dL Normal 0.0-0.4 [facility] Comment on above: Performed By: #### JAMES Sanchez MP, 1987-08, 81965-7 #### [facility] ([id number]) [address] [place] [address] 15062 #### 79003-5 #### [facility] ([id number]) [address] [facility], [address] [place] [address] Protein [Mass/Vol] 6.4 g/dL Normal 6.0-8.0 [facility] Comment on above: Performed By: #### JAMES Sanchez MP, 1987-08, 71680-6 #### [facility] ([id number]) [address] [place] [address] 57125 #### 70600-2 #### [facility] ([id number]) [address] [facility], [address] [place] [address] Lipid 1996 panelon 4 Cholesterol [Mass/Vol] 135 mg/dL Low 150-200 [facility] Comment on above: Performed By: #### JAMES Sanchez MP, 1987-08, 12402-9 #### [facility] ([id number]) [address] [place] [address] 66550 #### 02942-8 #### [facility] ([id number]) [address] [facility], [address] [place] [address] Cholesterol in HDL [Mass/Vol] 40 mg/dL Normal >39 [facility] Comment on above: Result Comment: HDL <40 mg/dL - High Risk HDL > or = 40mg/dL- Desirable HDL >60 mg/dL - Negative Risk Performed By: #### JAMES Sanchez MP, #### [facility] ([id number]) [address] [place] [address] 14709 #### 58126-9 #### [facility] ([id number]) [address], [address] [place] [address] Cholesterol in LDL [Mass/Vol] 57 mg/dL Normal <130 [facility] Comment on above: Result Comment: LDL <100 mg/dL - Desirable LDL >160 mg/dL - High Risk Performed By: ###JAMES Royal MP, #### [facility] ([id number]) [address] [place] [address] 19385 #### 49331-1 #### [facility] ([id number]) [address], [address] [place] [address] Cholesterol in VLDL [Mass/Vol] 38 mg/dL High 0-30 [facility] Comment on above: Performed By: #JAMES Quintero MP, #### [facility] ([id number]) [address] [place] [address] 72612 #### 87353-9 #### [facility] ([id number]) [address] [facility], [address] [place] [address] CHOLESTEROL:HDL 3.4 Normal 1.0-5.0 [facility] Comment on above: Performed By: #### B JAMES RONDON, 1987-08, 13838-9 #### [facility] ([id number]) [address] [place] [address] 63226 #### 86098-3 #### [facility] ([id number]) [address] [place] [address], [address] [place] [address] Triglyceride [Mass/Vol] 192 mg/dL High 27-150 [facility] Comment on above: Performed By: #### JAMES Sanchez MP, 1987-08, 48265-7 #### [facility] ([id number]) [address] [place] [address] 30820 #### 82052-9 #### [facility] ([id number]) [address] [place] [address], [address] [place] [address] MAGNESIUMon 10-23-2023 Magnesium [Mass/Vol] 2.1 mg/dL Normal 1.8-2.6 [facility] Comment on above: Performed By: #### JAMES Sanchez MP, 1987-08, 76665-9 #### [facility] ([id number]) [address] [place] [address] 56583 #### 34987-8 #### [facility] ([id number]) [address] [place] [address], [address] [place] [address] Natriuretic peptide.B prohor adrianne N-Terminal IA [Mass/Vol]on 10-23-2023 Natriuretic peptide B (Bld) [Mass/Vol] 1528 pg/mL High <=88 [facility] Comment on above: Result Comment: NOTE NT-proBNP [...] absence of renal failure. Test Performed by: [address] [address] Rail Switch Operator: Brittani Nieves Ph.D.; CLIA# [id number] Performed By: #### B ALCON CBCA, 1987-08, 74152-1 #### [facility] ([id number]) [address] [place] [address] 44456 #### 37447-0 #### [facility] ([id number]) [address] [facility], [address] [place] [address] Prostate specific Ag [Mass/V ol]on 10-23-2023 PSA SCREEN 1.65 ng/mL Normal 0.00-4.00 [facility] Comment on above: Result Comment: The method used for this test is [employer] DXI chemiluminescent immunoassay. Values obtained by different assay methods cannot be used interchangeably. Performed By: #### B ALCON CBCA, 1987-08, 69116-5 #### [facility] ([id number]) [address] [place] [address] 21643 #### 43365-6 #### [facility] ([id number]) [address], [address] [place] [address] Vitamin D+Metabolites [Mass/ Vol]on 10-23-2023 VITAMIN D 25 HYD TOT 8.3 ng/mL Low 30-100 [facility] Comment on above: Result Comment: Vitamin D status 25 [place] Vitamin D Deficiency <20 ng/mL Insufficiency 20-29 ng/mL Sufficiency 30-100 ng/mL Toxicity >100 ng/mL NOTE: A pediatric reference range has not been established by the pharmacy picking technician of this kit. The [place] [employer] recommends a Vitamin D level of = or >20ng/mL in infants and children. Performed By: #### B JAMES RONDON, 1987-08, 29615-9 #### [facility] ([id number]) [address] [place] [address] 11520 #### 90893-1 #### [facility] ([id number]) [address], [address] [place] [address] BLOOD UREA NITROGENon 2023 Urea nitrogen [Mass/Vol] 33 mg/dL High 5-27 [facility] Comment on above: Performed By: #### B JAMES RONDON, 1987-08, 20047-4 #### [facility] ([id number]) [address] [place] [address] 16550 #### 54797-0 #### [facility] ([id number]) [address] [facility], [address] [place] [address] CREATININEon 09-03-2023 Creatinine [Mass/Vol] 2.42 mg/dL High 0.70-1.20 [facility] Comment on above: Result Comment: METH OD TRACEABLE TO IDMS STANDARD Performed By: #### B JAMES RONDON, 1987-08, 88357-7 #### [facility] ([id number]) [address] [place] [address] 90256 #### 44578-9 #### [facility] ([id number]) [address], [address] [place] [address] GFR/1.73 sq M.predicted among non-blacks MDRD (S/P/Bld) [Vol rate/Area] 29 mL/min/{1.73_m2} Low >59 [facility] Comment on above: Result Comment: Reported eGFR is based on the CKD-EPI 2020 equation that does not use a race coefficient. Performed By: #### B JAMES RONDON, 1987-08, 39581-4 #### [facility] ([id number]) [address] [place] [address] 39276 #### 83786-1 #### [facility] ([id number]) [address], [address] [place] [address] ELECTROLYTESon 09-03-2023 Anion gap [Moles/Vol] 7 mmol/L Normal 5-15 [facility] Comment on above: Performed By: #### JAMES Sanchez MP, 1987-08, 87211-5 #### [facility] ([id number]) [address] [place] [address] 20186 #### 62473-2 #### [facility] ([id number]) [address] [facility], [address] [place] [address] Chloride [Moles/Vol] 106 mmol/L Normal 98-109 [facility] Comment on above: Performed By: #### JAMES Sanchez MP, 1987-08, #### [facility] ([id number]) [address] [place] [address] 36449 #### 60442-1 #### [facility] ([id number]) [address], [address] [place] [address] CO2 [Moles/Vol] 21 mmol/L Low 22-32 [facility] Comment on above: Performed By: #### JAMES Sanchez MP, 1987-08, #### [facility] ([id number]) [address] [place] [address] 67717 #### 85928-4 #### [facility] ([id number]) [address], [address] [place] [address] Potassium [Moles/Vol] 4.2 mmol/L Normal 3.5-5.0 [facility] Comment on above: Performed By: #### Laura RONDON CBCA, 1987-08, #### [facility] ([id number]) [address] [place] [address] 47231 #### 43016-8 #### [facility] ([id number]) [address] [place] [address], [address] [place] [address] Sodium [Moles/Vol] 134 mmol/L Normal 134-146 [facility] Comment on above: Performed By: #### Laura RONDON CBCA, 1987-08, 41756-1 #### [facility] ([id number]) [address] [place] [address] 68368 #### 11129-0 #### [facility] ([id number]) [address] [place] [address], [address] [place] [address] Natriuretic peptide.B prohor adrianne N-Terminal [Mass/Vol]on 09-03-2023 NT Pro BNP See Below Normal [facility] Comment on above: Result Comment: NOTE TEST RESULT FLAG UNIT REF.RANGE ---- PRO B Natr Peptide 933 H pg/mL <125 Test Performed By: [facility] [address] [place] [address] Screw Machine Operator Single Spindle: Charlotte Hart III #[id number] Performed By: #### Laura RONDON CBCA, 1987-08, 75508-5 #### [facility] ([id number]) [address] [place] [address] 79538 #### 71535-1 #### [facility] ([id number]) [address] [place] [address], [address] [place] [address] BLOOD UREA NITROGENon 2023 Urea nitrogen [Mass/Vol] 38 mg/dL High 5-27 [facility] Comment on above: Performed By: #### B JAMES RONDON, 1987-08, 03036-0 #### [facility] ([id number]) [address] [place] [address] 88452 #### 11216-4 #### [facility] ([id number]) [address] [facility], [address] [place] [address] CREATININEon 07-31-2023 Creatinine [Mass/Vol] 2.76 mg/dL High 0.70-1.20 [facility] Comment on above: Result Comment: METH OD TRACEABLE TO IDMS STANDARD Performed By: #### B JAMES RONDON, 1987-08, #### [facility] ([id number]) [address] [place] [address] 27277 #### 86400-0 #### [facility] ([id number]) [address] [facility], [address] [place] [address] GFR/1.73 sq M.predicted among non-blacks MDRD (S/P/Bld) [Vol rate/Area] 25 mL/min/{1.73_m2} Low >59 [facility] Comment on above: Result Comment: Reported eGFR is based on the CKD-EPI 2020 equation that does not use a race coefficient. Performed By: #### B JAMES RONDON, 1987-08, #### [facility] ([id number]) [address] [place] [address] #### 92631-3 #### [facility] ([id number]) [address] [facility], [address] [place] [address] ELECTROLYTESon 07-31-2023 Anion gap [Moles/Vol] 7 mmol/L Normal 5-15 [facility] Comment on above: Performed By: #### B JAMES RONDON, 1987-08, #### [facility] ([id number]) [address] [place] [address] #### 75259-5 #### [facility] ([id number]) [address] [facility], [address] [place] [address] Chloride [Moles/Vol] 104 mmol/L Normal 98-109 [facility] Comment on above: Performed By: #### JAMES Sanhcez MP, 1987-08, 31417-0 #### [facility] ([id number]) [address] [place] [address] #### 35713-6 #### [facility] ([id number]) [address] [facility], [address] [place] [address] CO2 [Moles/Vol] 21 mmol/L Low 22-32 [facility] Comment on above: Performed By: #### JAMES Sanhcez MP, 1987-08, 74175-5 #### [facility] ([id number]) [address] [place] [address] #### 25441-0 #### [facility] ([id number]) [address] [facility], [address] [place] [address] Potassium [Moles/Vol] 4.3 mmol/L Normal 3.5-5.0 [facility] Comment on above: Performed By: #### JAMES Sanchez MP, 1987-08, 38255-1 #### [facility] ([id number]) [address] [place] [address] #### 06035-1 #### [facility] ([id number]) [address] [facility], [address] [place] [address] Sodium [Moles/Vol] 132 mmol/L Low 134-146 [facility] Comment on above: Performed By: #### JAMES Sanchez MP, 1987-08, 28987-7 #### [facility] ([id number]) [address] [place] [address] #### 87595-3 #### [facility] ([id number]) [address] [facility], [address] [place] [address] Natriuretic peptide.B prohor adrianne N-Terminal [Mass/Vol]on 07-31-2023 NT Pro BNP See Below Normal [facility] Comment on above: Result Comment: NOTE TEST RESULT FLAG UNIT REF.RANGE ---- PRO B Natr Peptide 1296 H pg/mL <125 Test Performed By: [place] [address] Screw Machine Operator Single Spindle: Charlotte Hart III #[id number] Performed By: #### Laura RONDON, CBCA, 1987-08, 44214-5 #### [facility] ([id number]) [address] [place] [address] 58768 #### 38241-7 #### [facility] ([id number]) [address] [facility], [address] [place] [address] BLOOD UREA NITROGENon 2023 Urea nitrogen [Mass/Vol] 34 mg/dL High 5-27 [facility] Comment on above: Performed By: #### Laura RONDON, CBCA, 1987-08, 13646-7 #### [facility] ([id number]) [address] [place] [address] 71856 #### 78806-6 #### [facility] ([id number]) [address] [facility], [address] [place] [address] CREATININEon 07-02-2023 Creatinine [Mass/Vol] 3.13 mg/dL High 0.70-1.20 [facility] Comment on above: Result Comment: METH OD TRACEABLE TO IDMS STANDARD Performed By: #### B JAMES RONDON, 1987-08, 09955-5 #### [facility] ([id number]) [address] [place] [address] 51531 #### 98890-4 #### [facility] ([id number]) [address] [facility], [address] [place] [address] GFR/1.73 sq M.predicted among non-blacks MDRD (S/P/Bld) [Vol rate/Area] 22 mL/min/{1.73_m2} Low >59 [facility] Comment on above: Result Comment: Reported eGFR is based on the CKD-EPI 2020 equation that does not use a race coefficient. Performed By: #### B JAMES RONDON, 1987-08, 96678-6 #### [facility] ([id number]) [address] [place] [address] 98871 #### 27210-7 #### [facility] ([id number]) [address] [facility], [address] [place] [address] ELECTROLYTESon 07-02-2023 Anion gap [Moles/Vol] 8 mmol/L Normal 5-15 [facility] Comment on above: Performed By: #### JAMES Sanchez MP, 1987-08, 35500-7 #### [facility] ([id number]) [address] [place] [address] 58056 #### 66096-4 #### [facility] ([id number]) [address] [facility], [address] [place] [address] Chloride [Moles/Vol] 106 mmol/L Normal 98-109 [facility] Comment on above: Performed By: #### B JAMES RONDON, 1987-08, 28559-1 #### [facility] ([id number]) [address] [place] [address] 55457 #### 69937-5 #### [facility] ([id number]) [address] [facility], [address] [place] [address] CO2 [Moles/Vol] 20 mmol/L Low 22-32 [facility] Comment on above: Performed By: #### SEVEN Sanchez MPA, 1987-08, 58608-3 #### [facility] ([id number]) [address] [place] [address] 77427 #### 98946-9 #### [facility] ([id number]) [address] [place] [address], [address] [place] [address] Potassium [Moles/Vol] 4.7 mmol/L Normal 3.5-5.0 [facility] Comment on above: Performed By: #### SEVEN Sanchez MPA, 1987-08, 49010-6 #### [facility] ([id number]) [address] [place] [address] 13684 #### 48899-0 #### [facility] ([id number]) [address] [place] [address], [address] [address] Sodium [Moles/Vol] 134 mmol/L Normal 134-146 [facility] Comment on above: Performed By: #### SEVEN Sanchez MPA, 1987-08, 19139-8 #### [facility] ([id number]) [address] [place] [address] 27266 #### 62550-0 #### [facility] ([id number]) [address] [facility], [address] [place] [address] Natriuretic peptide.B prohor adrianne N-Terminal [Mass/Vol]on 07-02-2023 NT Pro BNP See Below Normal [facility] Comment on above: Result Comment: NOTE TEST RESULT FLAG UNIT REF.RANGE ---- PRO B Natr Peptide 413 H pg/mL <125 Test Performed By: [facility] [employer] [address] [place] [address] Screw Machine Operator Single Spindle: Tyler Valle III, M.D. CLIA #[id number] Performed By: #### B JAMES RONDON, 1987-08, 45288-2 #### [facility] ([id number]) [address] [place] [address] 01570 #### 34473-7 #### [facility] ([id number]) [address] [place] [address], [facility] [address] [place] [address] BLOOD UREA NITROGENon 2023 Urea nitrogen [Mass/Vol] 33 mg/dL High 5-27 [facility] Comment on above: Performed By: #### JAMES Sanchez MP, 1987-08, 03076-3 #### [facility] ([id number]) [address] [place] [address] 21921 #### 09882-7 #### [facility] ([id number]) [address] [place] [address], [address] [place] [address] CREATININEon 06-04-2023 Creatinine [Mass/Vol] 2.37 mg/dL High 0.70-1.20 [facility] Comment on above: Result Comment: METH OD TRACEABLE TO IDMS STANDARD Performed By: #### JAMES Sanchez MP, 1987-08, 32469-2 #### [facility] ([id number]) [address] [place] [address] 03068 #### 94456-5 #### [facility] ([id number]) [facility], [address] [place] [address] GFR/1.73 sq M.predicted among non-blacks MDRD (S/P/Bld) [Vol rate/Area] 30 mL/min/{1.73_m2} Low >59 [facility] Comment on above: Result Comment: Reported eGFR is based on the CKD-EPI 2020 equation that does not use a race coefficient. Performed By: #### B JAMES RONDON, 1987-08, 54935-5 #### [facility] ([id number]) [address] [place] [address] 08997 #### 19979-3 #### [facility] ([id number]) [address], [address] [place] [address] ELECTROLYTESon 06-04-2023 Anion gap [Moles/Vol] 7 mmol/L Normal 5-15 [facility] Comment on above: Performed By: #### B JAMES RONDON, 1987-08, 16124-9 #### [facility] ([id number]) [address] [place] [address] 41951 #### 48359-6 #### [facility] ([id number]) [address], [address] [place] [address] Chloride [Moles/Vol] 106 mmol/L Normal 98-109 [facility] Comment on above: Performed By: #### B JAMES RONDON, 1987-08, 16842-6 #### [facility] ([id number]) [address] [place] [address] 19053 #### 17807-0 #### [facility] ([id number]) [address], [address] [place] [address] CO2 [Moles/Vol] 20 mmol/L Low 22-32 [facility] Comment on above: Performed By: #### JAMES Sanchez MP, 1987-08, 67514-6 #### [facility] ([id number]) [address] [place] [address] 44290 #### 08890-5 #### [facility] ([id number]) [address] [place] [address], [address] [place] [address] Potassium [Moles/Vol] 4.6 mmol/L Normal 3.5-5.0 [facility] Comment on above: Performed By: #### JAMES Sanchez MP, 1987-08, 00587-3 #### [facility] ([id number]) [address] [place] [address] 80721 #### 19546-1 #### [facility] ([id number]) [address] [place] [address], [address] [place] [address] Sodium [Moles/Vol] 133 mmol/L Low 134-146 [facility] Comment on above: Performed By: #### JAMES Sanchez MP, 1987-08, 57733-4 #### [facility] ([id number]) [address] [place] [address] 42258 #### 55887-7 #### [facility] ([id number]) [address] [place] [address], [address] [place] [address] Natriuretic peptide.B prohor adrianne N-Terminal [Mass/Vol]on 06-04-2023 NT Pro BNP See Below Normal [facility] Comment on above: Result Comment: NOTE TEST RESULT FLAG UNIT REF.RANGE ---- PRO B Natr Peptide 526 H pg/mL <125 Test Performed By: [facility] [employer] [address] [place] [address] Screw Machine Operator Single Spindle: Charlotte Hart III #[id number] Performed By: #### JAMES Sanchez MP, 1987-08, 09636-8 #### [facility] ([id number]) [address] [place] [address] [place] [address] #### 33985-3 #### [facility] ([id number]) [address] [place] [address], [address] [place] [address] Cult,Urineon 06-03-2023 Cult,Urine Specimen Description .VOIDED URINE [...] Tobramycin 4 SUSCEPTIBLE Trimethoprim/Sulfa >=320 RESISTANT Resistant [facility] Comment on above: Performed By: #### U RC #### [address] [address] Rail Switch Operator: Griffin Carrion MD [facility] [address] [place] [address] [place] [address] Rail Switch Operator: Jameson Aaron MD UA w/Reflex Cultureon 2023 Bilirubin, SemiQt,Ur Negative Normal NEG [facility] Comment on above: Performed By: #### U COURTNEY GUSTAFSON #### [facility] [address] [place] [address] [place] [address] Rail Switch Operator: Jameson Aaron MD Blood, Urine TRACE Abnormal NEG [facility] Comment on above: Performed By: #### U COURTNEY GUSTAFSON #### [facility] [address] [place] [address] [place] [address] Rail Switch Operator: Jameson Aaron MD Clarity (U) SLIGHTLY CLOUDY Abnormal CLEAR [facility] Comment on above: Performed By: #### U COURTNEY GUSTAFSON #### [facility] [address] [place], [place] 139[address]383 Rail Switch Operator: Jameson Aaron MD Color (U) Yellow Normal YEL [facility] Comment on above: Performed By: #### U AX, UMICAO #### [facility] [address] [place], [place] 5359383 Rail Switch Operator: Jameson Aaron MD Glucose Ql (U) 3+ mg/dL Abnormal NEG [facility] Comment on above: Performed By: #### U AX, UMICAO #### [facility] [address] [place], [place] 8358483 Rail Switch Operator: Jameson Aaron MD Ketones Ql (U) Negative Normal NEG [facility] Comment on above: Performed By: #### U AX, UMICAO #### [facility] [address] [place], [place] 65[address]83 Rail Switch Operator: Jameson Aaron MD Leukocyte esterase Test strip Ql (U) TRACE Abnormal NEG [facility] Comment on above: Performed By: #### U AX, UMICAO #### [facility] [address] [place], [place] 9372883 Rail Switch Operator: Jameson Aaron MD Nitrite,Ur Negative Normal [facility] Comment on above: Performed By: #### U AX, UMICAO #### [facility] [address] [place], [place] 417[address]83 Rail Switch Operator: Jameson Aaron MD PH,Ur 5.5 Normal 5.0-9.0 [facility] Comment on above: Performed By: #### U AX, UMICAO #### [facility] [address] [place], [place] 7[address]83 Rail Switch Operator: Jameson Aaron MD Protein Ql (U) 2+ mg/dL Abnormal NEG [facility] Comment on above: Performed By: #### U AX, UMICAO #### [facility] [address] [place], [place] 1039683 Rail Switch Operator: Jameson Aaron MD Spec. [place],Ur 1.025 High 1.010-1.020 [facility] Comment on above: Performed By: #### U AX, UMICAO #### [facility] [address] [place], [place] 2216983 Rail Switch Operator: Jameson Aaron MD Urobilinogen,Ur Normal Normal 0.0-1.0 [facility] Comment on above: Performed By: #### U AX UMICAO #### [facility] [address] [place] [address] Rail Switch Operator: Jameson Aaron MD Urinalysis,Microon 4 Bacteria 2+ Abnormal NONE [facility] Comment on above: Performed By: #### U AX UMICAO #### [facility] [address] [place], [place] [address] Rail Switch Operator: Jameson Aaron MD Epithelial cells LM Ql (Urine sed) 0 TO [address] Comment on above: Performed By: #### U AX, UMICAO #### [facility] [address] [place], [place] 2634183 Rail Switch Operator: Jameson Aaron MD Epithelial, Renal 0 TO 2 Normal 0 [facility] Comment on above: Performed By: #### U AX, UMICAO #### [facility] [address] [place], [place] 8557083 Rail Switch Operator: Jameson Aaron MD Urine RBC's 0 TO 2 Normal 0-2 [facility] Comment on above: Performed By: #### U AX, UMICAO #### [facility] [address] [place], [place] 885[address]83 Rail Switch Operator: Jameson Aaron MD Urine WBC's 10 TO 20 Normal 0-5 [facility] Comment on above: Performed By: #### U AX, UMICAO #### [facility] [address] [place] [address] Rail Switch Operator: Jameson Aaron MD Yeast PRESENCE NOTED Abnormal NONE [facility] Comment on above: Performed By: #### U AX, ELEANORICAO #### [facility] [address] [place] [address] Rail Switch Operator: Jameson Aaron MD BLOOD UREA NITROGENon 2023 Urea nitrogen [Mass/Vol] 44 mg/dL High 5-27 [facility] Comment on above: Performed By: #### E LEC, 309-0, SOLUTION SPECIALIST, 62903-7 #### [facility] ([id number]) [address] [place] [address] 03686 #### 31790-9, HA1C #### [facility] ([id number]) [address] [place] [address], [address] [place] [address] CREATININEon 05-06-2023 Creatinine [Mass/Vol] 2.71 mg/dL High 0.70-1.20 [facility] Comment on above: Result Comment: METH OD TRACEABLE TO IDMS STANDARD Performed By: #### E LEC, 309-0, SOLUTION SPECIALIST, 98627-9 #### [facility] ([id number]) [address] [place] [address] 07382 #### 27491-6, HA1C #### [facility] ([id number]) [address] [place] [address], [address] [place] [address] GFR/1.73 sq M.predicted among non-blacks MDRD (S/P/Bld) [Vol rate/Area] 26 mL/min/{1.73_m2} Low >59 [facility] Comment on above: Result Comment: Reported eGFR is based on the CKD-EPI 2020 equation that does not use a race coefficient. Performed By: #### E LEC, 309-0, SOLUTION SPECIALIST, 22331-0 #### [facility] ([id number]) [address] [place] [address] #### 41256-4, HA1C #### [facility] ([id number]) [address] [place] [address] ELECTROLYTESon 05-06-2023 Anion gap [Moles/Vol] 11 mmol/L Normal 5-15 [facility] Comment on above: Performed By: #### E LEC, 3094-0, SOLUTION SPECIALIST, 87774-5 #### [facility] ([id number]) [address] [place] [address]16[address] #### 64555-3, HA1C #### [facility] ([id number]) [address], [address] [place] [address] Chloride [Moles/Vol] 101 mmol/L Normal 98-109 [facility] Comment on above: Performed By: #### E LEC, 3094-0, SOLUTION SPECIALIST, 19814-0 #### [facility] ([id number]) [address] [place] [address] 45934 #### 75243-1, HA1C #### [facility] ([id number]) [address], [address] [place] [address] CO2 [Moles/Vol] 18 mmol/L Low 22-32 [facility] Comment on above: Performed By: #### E LEC, 3094-0, SOLUTION SPECIALIST, 87180-9 #### [facility] ([id number]) [address] [place] [address]9601 #### 21434-8, HA1C #### [facility] ([id number]) [address], [address] [place] [address] Potassium [Moles/Vol] 4.4 mmol/L Normal 3.5-5.0 [facility] Comment on above: Performed By: #### E LEC, 3094-0, SOLUTION SPECIALIST, 97645-4 #### [facility] ([id number]) [address] [place] [address] 12625 #### 89198-0, HA1C #### [facility] ([id number]) [address], [address] [place] [address] Sodium [Moles/Vol] 130 mmol/L Low 134-146 [facility] Comment on above: Performed By: #### E LEC, 3094-0, SOLUTION SPECIALIST, 60552-2 #### [facility] ([id number]) [address] [place] [address] 69693 #### 12663-6, HA1C #### [facility] ([id number]) [address], [address] [place] [address] HGB A1C (GLYCO-HGB)on 2023 Glucose [Mass/Vol] 260 mg/dL Normal [facility] Comment on above: Performed By: #### Laura MP, CBCA, 1987-08, 02995-3 #### [facility] ([id number]) [address] [place] [address] #### 37366-8 #### [facility] ([id number]) [address], [address] [place] [address] HbA1c (Bld) [Mass fraction] 10.7 % High 4.4-5.6 [facility] Comment on above: Result Comment: NOTE ADA Guidelines Result HgbA1c Normal : less than 5.7 % Prediabetes : 5.7 % to 6.4 % Diabetes : > 6.4 % Use with caution in patients with abnormal hemoglobin variants as the half-life of red blood cells and in vivo glycation rates are affected. Performed By: #### B MP, CBCA, 1987-08, 93243-9 #### [facility] ([id number]) [address] [place] [address] 87246 #### 49209-8 #### [facility] ([id number]) [address], [address] [place] [address] Lipid 1996 panelon 4 Cholesterol [Mass/Vol] 205 mg/dL High 150-200 [facility] Comment on above: Performed By: #### Tiki LEC, 3094-0, SOLUTION SPECIALIST, 50165-5 #### [facility] ([id number]) [address] [place] [address] 63571 #### 61115-2, HA #### [facility] ([id number]) [address], [address] [place] [address] Cholesterol in HDL [Mass/Vol] 35 mg/dL Low >39 [facility] Comment on above: Result Comment: HDL <40 mg/dL - High Risk HDL > or = 40mg/dL- Desirable HDL >60 mg/dL - Negative Risk Performed By: #### Tiki LEC, 3094-0, SOLUTION SPECIALIST, 25295-4 #### [facility] ([id number]) [address] [place] [address] 10397 #### 21876-8, HA #### [facility] ([id number]) [address], [address] [place] [address] Cholesterol in LDL [Mass/Vol] 120 mg/dL Normal <130 [facility] Comment on above: Result Comment: LDL <100 mg/dL - Desirable LDL >160 mg/dL - High Risk Performed By: #### E LEC, 3094-0, SOLUTION SPECIALIST, 01332-4 #### [facility] ([id number]) [address] [place] [address] 23621 #### 65059-0, HA1C #### [facility] ([id number]) [address] [facility], [address] [place] [address] Cholesterol in VLDL [Mass/Vol] 50 mg/dL High 0-30 [facility] Comment on above: Performed By: #### E LEC, 3094-0, SOLUTION SPECIALIST, 87909-4 #### [facility] ([id number]) [address] [place] [address]810 #### 15665-2, HA1C #### [facility] ([id number]) [address] [facility], [address] [place] [address] CHOLESTEROL:HDL 5.9 High 1.0-5.0 [facility] Comment on above: Performed By: #### E LEC, 3094-0, SOLUTION SPECIALIST, 35642-2 #### [facility] ([id number]) [address] [place] [address]113 #### 92163-3, HA1C #### [facility] ([id number]) [address] [facility], [address] [place] [address] Triglyceride [Mass/Vol] 248 mg/dL High 27-150 [facility] Comment on above: Performed By: #### E LEC, 3094-0, SOLUTION SPECIALIST, 90423-0 #### [facility] ([id number]) [address] [place] [address] #### 25034-6, HA1C #### [facility] ([id number]) [address], [address] [place] [address] MICROALBUMIN - ALBUMIN:CREAT ININE URINE RATIOon 05-06-2023 ALB/CREAT RATIO 2747.0 mg/g creat High 0.0-30.0 [facility] Comment on above: Performed By: #### B JAMES RONDON, 1987-08, 02864-9 #### [facility] ([id number]) [address] [place] [address] #### 34724-5 #### [facility] ([id number]) [address] [facility], [address] [place] [address] Albumin DL <= 20 mg/L (U) [Mass/Vol] 195.2 mg/dL High 0.0-1.9 [facility] Comment on above: Performed By: #### B JAMES RONDON, 1987-08, 83401-1 #### [facility] ([id number]) [address] [place] [address] 85447 #### 04881-6 #### [facility] ([id number]) [address] [facility], [address] [place] [address] URINE CREAT 71.06 mg/dL Normal [facility] Comment on above: Performed By: #### B JAMES RONDON, 1987-08, 82384-9 #### [facility] ([id number]) [address] [place] [address] 00574 #### 29695-7 #### [facility] ([id number]) [address] [facility], [address] [place] [address] Natriuretic peptide.B prohor adrianne N-Terminal [Mass/Vol]on 05-06-2023 NT Pro BNP See Below Normal [facility] Comment on above: Result Comment: NOTE TEST RESULT FLAG UNIT REF.RANGE ---- PRO B Natr Peptide 314 H pg/mL <125 Test Performed By: [facility] [address] [address] Screw Machine Operator Single Spindle: Charlotte Hart III #[id number] Performed By: #### B MP, CBCA, 1987-, 38325-1 #### [facility] ([id number]) [address] [place] [address] 13776 #### 80168-7 #### [facility] ([id number]) [address] [place] [address], [address] [place] [address] URINALYSISon 05-06-2023 Bilirubin Ql (U) Negative Normal NEG [facility] Comment on above: Performed By: #### U A #### [facility] ([id number]) [address] [place] [address] BLOOD/HGB Trace Abnormal NEG [facility] Comment on above: Performed By: #### U A #### [facility] ([id number]) [address] [place] [address] Color (U) YELLOW Normal YELLOW [facility] Comment on above: Performed By: #### U A #### [facility] ([id number]) [address] [place] [address] Glucose Ql (U) >1000 Abnormal NEG [facility] Comment on above: Performed By: #### U A #### [facility] ([id number]) [address] [place] [address] Ketones Ql (U) Negative Normal NEG [facility] Comment on above: Performed By: #### U A #### [facility] ([id number]) [address] [place] [address]29[address] Leukocyte esterase Test strip Ql (U) Negative Normal NEG [facility] Comment on above: Result Comment: HIGH CONCENTRATIONS OF GLUCOSE MAY DECREASE THE REACTIVITY OF THE DIPSTICK LEUKOCYTE TEST PAD. Performed By: #### U A #### [facility] ([id number]) [address] [place] [id number] MUCOUS PRESENT Abnormal NONE [facility] Comment on above: Performed By: #### U A #### [facility] ([id number]) [address] [place] [address]454 Nitrite Ql (U) Positive Abnormal NEG [facility] Comment on above: Performed By: #### U A #### [facility] ([id number]) [address] [place] [address] 59892 pH (U) 6.0 [pH] Normal 5.0-8.5 [facility] Comment on above: Performed By: #### U A #### [facility] ([id number]) [address] [place] [id number] Protein Ql (U) >300 Abnormal NEG [facility] Comment on above: Performed By: #### U A #### [facility] ([id number]) [address] [place] [address] 70228 R.B.CELLS 5 /hpf Normal 0-5 [facility] Comment on above: Performed By: #### U A #### [facility] ([id number]) [address] [place] [address]96 Specific gravity (U) [Rel density] 1.015 Normal 1.003-1.035 [facility] Comment on above: Performed By: #### U A #### [facility] ([id number]) [address] [place] [address] 73455 SQUAMOUS EPITHELIUM 4 /hpf Normal 0-5 [facility] Comment on above: Performed By: #### U A #### [facility] ([id number]) [address] [place] [address] 70316 TURBIDITY HAZY Abnormal CLEAR [facility] Comment on above: Performed By: #### U A #### [facility] ([id number]) [address] [place] [address] 87001 Urobilinogen Qn (U) 0.2 {Chaya'U}/dL Normal <1.1 [facility] Comment on above: Performed By: #### U A #### [facility] ([id number]) [address] [place] [address] 10944 W.B.CELLS >100 High 0-5 [facility] Comment on above: Performed By: #### U A #### [facility] ([id number]) [address] [place] [address] 69172 URINE CULTUREon 05-06-2023 Bacteria identified Cx Nom (U) SPECIMEN NOTES URINE RECEIVED WITHOUT PRESERVATIVE CULTURE RESULTS MULTIPLE SPECIES PRESENT. PROBABLE COLLECTION CONTAMINATION. SUGGEST REPEAT SPECIMEN. URINE RECEIVED WITHOUT PRESERVATIVE-DELAYS IN TRANSPORT MAY AFFECT RESULTS.INTERPRET WITH CAUTION AND CLINICAL CORRELATION IS RECOMMENDED. Normal [facility] Comment on above: Performed By: #### B ALCON CBCA, 1987-08, 45055-6 #### [facility] ([id number]) [address] [place] [address] 79825 #### 95980-4 #### [facility] ([id number]) [address] [facility], [address] [place] [address] BASIC METABOLIC PANLon 04-19 Anion gap [Moles/Vol] 6 mmol/L Normal 5-15 [facility] Comment on above: Performed By: #### B ALCON CBCA, 1987-08, 09780-4 #### [facility] ([id number]) [address] [place] [address] 91476 #### 16455-6 #### [facility] ([id number]) [address] [facility], [address] [place] [address] Calcium [Mass/Vol] 8.6 mg/dL Normal 8.5-10.5 [facility] Comment on above: Performed By: #### B JAMES RONDON, 1987-08, 34063-0 #### [facility] ([id number]) [address] [place] [address] 96327 #### 81067-2 #### [facility] ([id number]) [address] [place] [address], [address] [place] [address] Chloride [Moles/Vol] 101 mmol/L Normal 98-109 [facility] Comment on above: Performed By: #### JAMES Sanchez MP, 1987-08, #### [facility] ([id number]) [address] [place] [address] 81670 #### 83848-5 #### [facility] ([id number]) [address] [place] [address], [address] [place] [address] CO2 [Moles/Vol] 19 mmol/L Low 22-32 [facility] Comment on above: Performed By: #### JAMES Sanchez MP, 1987-08, #### [facility] ([id number]) [address] [place] [address] 39591 #### 61056-5 #### [facility] ([id number]) [address] [place] [address], [address] [place] [address] Creatinine [Mass/Vol] 2.57 mg/dL High 0.70-1.20 [facility] Comment on above: Result Comment: METH OD TRACEABLE TO IDMS STANDARD Performed By: #### JAMES Sanchez MP, 1987-08, 53786-1 #### [facility] ([id number]) [address] [place] [address] 09857 #### 48305-7 #### [facility] ([id number]) [address] [facility], [address] [place] [address] GFR/1.73 sq M.predicted among non-blacks MDRD (S/P/Bld) [Vol rate/Area] 27 mL/min/{1.73_m2} Low >59 [facility] Comment on above: Result Comment: Reported eGFR is based on the CKD-EPI 2020 equation that does not use a race coefficient. Performed By: #### JAMES Sanchez MP, 1987-08, 25693-6 #### [facility] ([id number]) [address] [place] [address] 65185 #### 84617-4 #### [facility] ([id number]) [address] [facility], [address] [place] [address] Glucose [Mass/Vol] 377 mg/dL High 65-99 [facility] Comment on above: Performed By: #### JAMES Sanchez MP, 1987-08, #### [facility] ([id number]) [address] [place] [address] 55529 #### 43575-6 #### [facility] ([id number]) [address] [facility], [address] [place] [address] Potassium [Moles/Vol] 4.2 mmol/L Normal 3.5-5.0 [facility] Comment on above: Performed By: #### JAMES Sanchez MP, 1987-08, #### [facility] ([id number]) [address] [place] [address] 53961 #### 38821-9 #### [facility] ([id number]) [address] [facility], [address] [place] [address] Sodium [Moles/Vol] 126 mmol/L Low 134-146 [facility] Comment on above: Performed By: #### JAMES Sanchez MP, 1987-08, #### [facility] ([id number]) [address] [place] [address] 99878 #### 06747-8 #### [facility] ([id number]) [address], [address] [place] [address] Urea nitrogen [Mass/Vol] 30 mg/dL High 5-27 [facility] Comment on above: Performed By: #### B MP, CBCA, 1987-08, 18076-5 #### [facility] ([id number]) [address] [place] [address] 34957 #### 39875-2 #### [facility] ([id number]) [address] [facility], [address] [place] [address] CBC AND AUTO DIFFon 04-19-20 23 ABSOLUTE BASOPHIL 0.1 X10E9/L Normal 0.0-0.2 [facility] Comment on above: Performed By: #### B MP, CBCA, 1987-08, 94841-0 #### [facility] ([id number]) [address] [place] [address] 99429 #### 73683-2 #### [facility] ([id number]) [address] [facility], [address] [place] [address] ABSOLUTE NEUTROPHIL 8.8 X10E9/L High 1.5-6.6 [facility] Comment on above: Performed By: #### B MP, CBCA, 1987-08, 27610-2 #### [facility] ([id number]) [address] [place] [address] 93587 #### 03634-0 #### [facility] ([id number]) [address], [address] [place] [address] Basophils/100 WBC (Bld) 0.5 % Normal [facility] Comment on above: Performed By: #### B MP, CBCA, 1987-08, #### [facility] ([id number]) [address] [place] [address] 70410 #### 69203-1 #### [facility] ([id number]) [address], [address] [place] [address] Eosinophils (Bld) [#/Vol] 0.3 10*3/uL Normal 0.0-0.4 [facility] Comment on above: Performed By: #### B MP, CBCA, 1987-08, #### [facility] ([id number]) [address] [place] [address] 76469 #### 50459-3 #### [facility] ([id number]) [address], [address] [place] [address] Eosinophils/100 WBC (Bld) 2.6 % Normal [facility] Comment on above: Performed By: #### B MP, CBCA, 1987-08, #### [facility] ([id number]) [address] [place] [address] 81646 #### 48602-0 #### [facility] ([id number]) [address], [address] [place] [address] Erythrocyte distribution width (RBC) [Ratio] 15.5 % High 11.5-15.0 [facility] Comment on above: Performed By: #### B MP, CBCA, 1987-08, #### [facility] ([id number]) [address] [place] [address] 18713 #### 10064-9 #### [facility] ([id number]) [address], [address] [place] [address] Hematocrit (Bld) [Volume fraction] 36.8 % Low 39-49 [facility] Comment on above: Performed By: #### B MP, CBCA, 1987-08, #### [facility] ([id number]) [address] [place] [address] 24198 #### 74185-9 #### [facility] ([id number]) [address], [address] [place] [address] Hemoglobin (Bld) [Mass/Vol] 12.0 g/dL Low 13.0-17.0 [facility] Comment on above: Performed By: #### B MP, CBCA, 1987-08, #### [facility] ([id number]) [address] [place] [address] 15865 #### 09599-3 #### [facility] ([id number]) [address], [address] [place] [address] Lymphocytes (Bld) [#/Vol] 1.9 10*3/uL Normal 1.0-3.5 [facility] Comment on above: Performed By: #### B MP, CBCA, 1987-08, #### [facility] ([id number]) [address] [place] [address] 94751 #### 55996-0 #### [facility] ([id number]) [address], [address] [place] [address] Lymphocytes/100 WBC (Bld) 15.1 % Normal [facility] Comment on above: Performed By: #### B MP, CBCA, 1987-08, 70035-9 #### [facility] ([id number]) [address] [place] [address] 91655 #### 20258-0 #### [facility] ([id number]) [address], [address] [place] [address] MCH (RBC) [Entitic mass] 28.2 pg Normal 27-34 [facility] Comment on above: Performed By: #### Laura MP, CBCA, 1987-08, 65239-3 #### [facility] ([id number]) [address] [place] [address] 68644 #### 07902-5 #### [facility] ([id number]) [address], [address] [place] [address] MCHC (RBC) [Mass/Vol] 32.7 g/dL Normal 32-36 [facility] Comment on above: Performed By: #### B ALCON, CBCA, 1987-08, 15668-7 #### [facility] ([id number]) [address] [place] [address] 67502 #### 24829-8 #### [facility] ([id number]) [address], [address] [place] [address] MCV (RBC) [Entitic vol] 86 fL Normal 80-100 [facility] Comment on above: Performed By: #### Laura RONDON, CBCA, 1987-08, 56623-5 #### [facility] ([id number]) [address] [place] [address] 41484 #### 03433-7 #### [facility] ([id number]) [address], [address] [place] [address] Monocytes (Bld) [#/Vol] 1.4 10*3/uL High 0-0.9 [facility] Comment on above: Performed By: #### B ALCON, CBCA, 1987-08, 74822-1 #### [facility] ([id number]) [address] [place] [address] 82174 #### 28225-1 #### [facility] ([id number]) [address], [address] [place] [address] Monocytes/100 WBC (Bld) 11.2 % Normal [facility] Comment on above: Performed By: #### B MP, CBCA, 1987-08, 63966-4 #### [facility] ([id number]) [address] [place] [address] 91104 #### 43143-1 #### [facility] ([id number]) [address], [address] [place] [address] Neutrophils/100 WBC (Bld) 70.6 % Normal [facility] Comment on above: Performed By: #### B MP, CBCA, 1987-08, 99449-6 #### [facility] ([id number]) [address] [place] [address] 17303 #### 35423-9 #### [facility] ([id number]) [address], [address] [place] [address] Platelet mean volume (Bld) [Entitic vol] 7.6 fL Normal 7-12 [facility] Comment on above: Performed By: #### B MP, CBCA, 1987-08, 77358-5 #### [facility] ([id number]) [address] [place] [address] 55075 #### 46926-9 #### [facility] ([id number]) [address], [address] [place] [address] Platelets (Bld) [#/Vol] 325 10*3/uL Normal 150-450 [facility] Comment on above: Performed By: #### B MP, CBCA, 1987-08, 05817-5 #### [facility] ([id number]) [address] [place] [address] 16835 #### 44441-0 #### [facility] ([id number]) [address], [address] [place] [address] RBC COUNT 4.27 X10E12/L Normal 4.10-5.70 [facility] Comment on above: Performed By: #### JAMES Sanchez MP, 1987-08, #### [facility] ([id number]) [address] [place] [address] 35385 #### 67294-2 #### [facility] ([id number]) [address], [address] [place] [address] WBC (Bld) [#/Vol] 12.5 10*3/uL High 4.0-11.0 [facility] Comment on above: Performed By: #### JAMES Sanchez MP, 1987-08, #### [facility] ([id number]) [address] [place] [address] 75488 #### 86655-5 #### [facility] ([id number]) [address] [facility], [address] [place] [address] CRP [Mass/Vol]on 04-19-2023 C REACTIVE PROTEIN 7.8 mg/dL High 0.000-0.744 [facility] Comment on above: Performed By: #### JAMES Sanchez MP, 1987-08, #### [facility] ([id number]) [address] [place] [address] 47406 #### 14342-8 #### [facility] ([id number]) [address], [address] [place] [address] ESR Photometric method (Bld) [Velocity]on 04-19-2023 ESR, ERYTHROCYTE SEDIMENTATION RATE 115 mm/h High 0-20 [facility] Comment on above: Performed By: #### JAMES Sanchez MP, 1987-08, #### [facility] ([id number]) [address] [place] [address] 64769 #### 01106-3 #### [facility] ([id number]) [address] [facility], [address] [place] [address] Natriuretic peptide.B prohojian silver N-Terminal [Mass/Vol]on 04-19-2023 NT Pro BNP See Below Normal [facility] Comment on above: Result Comment: NOTE TEST RESULT FLAG UNIT REF.RANGE ---- PRO B Natr Peptide 587 H pg/mL <125 Test Performed By: [facility] [employer] [address] [place] [address] Screw Machine Operator Single Spindle: Tyler Valle III, M.D. CLIA #[id number] Performed By: #### B MP, CBCA, 1987-08, 32387-1 #### [facility] ([id number]) [address] [place] [address], [place] [address] #### 94572-3 #### [facility] ([id number]) [address] [place] [address], [address] [place] [address] Basic Metabolic Profon 02-27 Anion gap [Moles/Vol] 11 mmol/L Normal - [facility] Comment on above: Performed By: #### S ED, CRP, BMP, CDP #### [facility] [address] [place] [address] Rail Switch Operator: Jameson Aaron MD BUN/CRE Ratio 16 Normal - [facility] Comment on above: Performed By: #### S ED, CRP, BMP, CDP #### [facility] [address] [place] [address] Rail Switch Operator: Jameson Aaron MD Calcium [Mass/Vol] 9.4 mg/dL Normal 8.6-10.4 [facility] Comment on above: Performed By: #### S ED, CRP, BMP, CDP #### [facility] [address] [place], [place] [address] Rail Switch Operator: Jameson Aaron MD Chloride [Moles/Vol] 98 mmol/L Normal 98-107 [facility] Comment on above: Performed By: #### S ED, CRP, BMP, CDP #### [facility] [address] [place], [place] 2344383 Rail Switch Operator: Jameson Aaron MD CO2 [Moles/Vol] 18 mmol/L Low 20-31 [facility] Comment on above: Performed By: #### S ED, CRP, BMP, CDP #### [facility] [address] [place], [place] [address] Rail Switch Operator: Jameson Aaron MD Creatinine [Mass/Vol] 2.7 mg/dL High 0.7-1.2 [facility] Comment on above: Performed By: #### S ED, CRP, BMP, CDP #### [facility] [address] [place], [place] 8139383 Rail Switch Operator: Jameson Aaron MD GFR/1.73 sq M.predicted among non-blacks MDRD (S/P/Bld) [Vol rate/Area] 26 mL/min/{1.73_m2} Low >60 [facility] Comment on above: Result Comment: These results [...] ED, CRP, BMP, CDP #### [facility] [address] [place], [place] [address]83 Rail Switch Operator: Jameson Aaron MD Glucose [Mass/Vol] 268 mg/dL High 70-99 [facility] Comment on above: Performed By: #### S ED, CRP, BMP, CDP #### [facility] [address] [place], [place] [address]83 Rail Switch Operator: Jameson Aaron MD Potassium [Moles/Vol] 5.2 mmol/L Normal 3.7-5.3 [facility] Comment on above: Performed By: #### S ED, CRP, BMP, CDP #### [facility] [address] [place] [address] Rail Switch Operator: Jameson Aaron MD Sodium [Moles/Vol] 127 mmol/L Low 135-144 [facility] Comment on above: Performed By: #### S ED, CRP, BMP, CDP #### [address] [place] [address] Rail Switch Operator: Jameson Aaron MD Urea nitrogen [Mass/Vol] 44 mg/dL High 8-23 [facility] Comment on above: Performed By: #### S ED, CRP, BMP, CDP #### [address] [place], [place] [address]83 Rail Switch Operator: Jameson Aaron MD C-Reactive Proteinon 023 CRP [Mass/Vol] 131.1 mg/L High 0.0-5.0 [facility] Comment on above: Performed By: #### S ED, CRP, BMP, CDP #### [facility] [address] [place], [facility] Rail Switch Operator: Jameson Aaron MD CBC with Diffon 02-27-2023 Abs. Basophil 0.06 k/uL Normal 0.00-0.20 [facility] Comment on above: Performed By: #### S ED, CRP, BMP, CDP #### [facility] [address] [place], [place] [address]227183 Rail Switch Operator: Jameson Aaron MD Abs.Imm.Granulocyte 0.11 k/uL Normal 0.00-0.30 [facility] Comment on above: Performed By: #### S ED, CRP, BMP, CDP #### [facility] [address] [place] [address] [place] [address] Rail Switch Operator: Jameson Aaron MD Abs.Neutrophil (Seg) 6.83 k/uL Normal 1.50-8.10 [facility] Comment on above: Performed By: #### S ED, CRP, BMP, CDP #### [address] [place] [address] Rail Switch Operator: Jameson Aaron MD Basophils/100 WBC (Bld) 1 % Normal 0-2 [facility] Comment on above: Performed By: #### S ED, CRP, BMP, CDP #### [address] [place] [address] Rail Switch Operator: Jameson Aaron MD Eosinophils (Bld) [#/Vol] 0.22 10*3/uL Normal 0.00-0.44 [facility] Comment on above: Performed By: #### S ED, CRP, BMP, CDP #### [address] [place] [address] Rail Switch Operator: Jameson Aaron MD Eosinophils/100 WBC (Bld) 2 % Normal 1-4 [facility] Comment on above: Performed By: #### S ED, CRP, BMP, CDP #### [address] [place], [place] [address] Rail Switch Operator: Jameson Aaron MD Erythrocyte distribution width (RBC) [Ratio] 14.6 % High 11.8-14.4 [facility] Comment on above: Performed By: #### S ED, CRP, BMP, CDP #### [address] [place] [address] Rail Switch Operator: Jameson Aaron MD Hematocrit (Bld) [Volume fraction] 41.9 % Normal 40.7-50.3 [facility] Comment on above: Performed By: #### S ED, CRP, BMP, CDP #### [facility] [address] [place], [facility] Rail Switch Operator: Jameson Aaron MD Hemoglobin (Bld) [Mass/Vol] 13.2 g/dL Normal 13.0-17.0 [facility] Comment on above: Performed By: #### S ED, CRP, BMP, CDP #### [facility] [address] [place], [place] [address] Rail Switch Operator: Jameson Aaron MD Immature granulocytes/100 WBC (Bld) 1 % High 0 [facility] Comment on above: Performed By: #### S ED, CRP, BMP, CDP #### [address] [place], [facility] Rail Switch Operator: Jameson Aaron MD Lymphocytes (Bld) [#/Vol] 1.83 10*3/uL Normal 1.10-3.70 [facility] Comment on above: Performed By: #### S ED, CRP, BMP, CDP #### [address] [place], [place] [address] Rail Switch Operator: Jameson Aaron MD Lymphocytes/100 WBC (Bld) 18 % Low 24-43 [facility] Comment on above: Performed By: #### S ED, CRP, BMP, CDP #### [address] [place], [facility] Rail Switch Operator: Jameson Aaron MD MCH (RBC) [Entitic mass] 28.2 pg Normal 25.2-33.5 [facility] Comment on above: Performed By: #### S ED, CRP, BMP, CDP #### [facility] [address] [place], [place] [address] Rail Switch Operator: Jameson Aaron MD MCHC (RBC) [Mass/Vol] 31.5 g/dL Normal 28.4-34.8 [facility] Comment on above: Performed By: #### S ED, CRP, BMP, CDP #### [facility] [address] [place], [place] [address] Rail Switch Operator: Jameson Aaron MD MCV (RBC) [Entitic vol] 89.5 fL Normal 82.6-102.9 [facility] Comment on above: Performed By: #### S ED, CRP, BMP, CDP #### [facility] [address] [place], [place] [address] Rail Switch Operator: Jameson Aaron MD Monocytes (Bld) [#/Vol] 1.42 10*3/uL High 0.10-1.20 [facility] Comment on above: Performed By: #### S ED, CRP, BMP, CDP #### [address] [place] [address] Rail Switch Operator: Jameson Aaron MD Monocytes/100 WBC (Bld) 14 % High 3-12 [facility] Comment on above: Performed By: #### S ED, CRP, BMP, CDP #### [address] [place], [place] [address] Rail Switch Operator: Jameson Aaron MD Neutrophil (Seg) 64 % Normal 36-65 [facility] Comment on above: Performed By: #### S ED, CRP, BMP, CDP #### [address] [place], [place] [address] Rail Switch Operator: Jameson Aaron MD NRBC Automated 0.0 per 100 WBC Normal 0.0 [facility] Comment on above: Performed By: #### S ED, CRP, BMP, CDP #### [address] [place], [facility] Rail Switch Operator: Jameson Aaron MD Platelet mean volume (Bld) [Entitic vol] 9.4 fL Normal 8.1-13.5 [facility] Comment on above: Performed By: #### S ED, CRP, BMP, CDP #### [facility] [address] [place] [address] Rail Switch Operator: Jameson Aaron MD Platelets (Bld) [#/Vol] 266 10*3/uL Normal 138-453 [facility] Comment on above: Performed By: #### S ED, CRP, BMP, CDP #### [facility] [address] [place], [place] [address] Rail Switch Operator: Jameson Aaron MD RBC (Bld) [#/Vol] 4.68 10*6/uL Normal 4.21-5.77 [facility] Comment on above: Performed By: #### S ED, CRP, BMP, CDP #### [facility] [address] [place], [place] [address] Rail Switch Operator: Jameson Aaron MD WBC (Bld) [#/Vol] 10.5 10*3/uL Normal 3.5-11.3 [facility] Comment on above: Performed By: #### S ED, CRP, BMP, CDP #### [facility] [address] [place], [facility] Rail Switch Operator: Jameson Aaron MD Sedimentation Rateon 023 Sedimentation Rate 114 mm/Hr High 0-20 [facility] Comment on above: Performed By: #### S ED, CRP, BMP, CDP #### [facility] [address] [place], [facility] Rail Switch Operator: Jameson Aaron MD FUNGAL CULTUREon 09-21-2022 Fungus (Mycology) Culture Final report Abnormal [facility] Comment on above: Performed By: #### C XFUN ####[facility] [id number] [place] [id number]. Eddie Lerner Fungus Stain Final report Normal [facility] Comment on above: Performed By: #### C XFUN ####[facility] [id number] [place] [id number]. Eddie Lerner Result 1 Comment Normal [facility] Comment on above: Result Comment: ANNEMARIE/ Calcofluor preparation: no fungus observed. Performed By: #### C XFUN ####[facility] [id number] [place] [address]DrVaishali Lerner Result 1 Rosy albicans Abnormal [facility] Comment on above: Performed By: #### C XFUN ####[facility] [id number] [place] [id number]. Eddie Lerner CULTURE OTHERon 08-23-2022 CULTURE OTHER Isolate 1 Enterococcus faecalis Light growth of ORGANISM 1 Enterococcus faecalis ANTIBIOTIC M.I.C RX STATUS Beta-Lactamase Neg NEG F Benzylpenicillin 0.5 S F Ampicillin <=2 S F Gentamicin High Level (synergy) SYN-R R F Streptomycin High Level (synergy) SYN-S S F Quinupristin/Dalfopristin 4 R F Linezolid 1 S F Vancomycin 1 S F Normal Select [facility] Comment on above: Performed By: #### O THCX ####[facility] Bjixvo[address] [place], [place] [address]Dr. Eddie Lerner ACID FAST SMEAR AND CXon Acid Fast Smear Negative Normal [facility] Comment on above: Performed By: #### A FB ####[facility] Wn[address] [place], [place] [address]DrVaishali Lerner [employer] Specimen Processing Tissue Grinding Normal [facility] Comment on above: Performed By: #### A FB ####[facility] [address] [address]Dr. Eddie Lerner BNPon 08-20-2022 Natriuretic peptide B (Bld) [Mass/Vol] 648.0 pg/mL Normal <=900.0 [facility] Comment on above: Performed By: #### A 1C #### [facility] [address] [address] [address] Eddie Lerner CULTURE ANAEROBICon 08-21-19 23 CULTURE ANAEROBIC Culture Observations : NO GROWTH OF ANAEROBES AT 72 HOURS. Normal [facility] Comment on above: Performed By: #### A NACX ####[facility] [address] [place], [place] [address]Dr. Eddie Lerner GLYCOHEMOGLOBIN A1Con 2022 ADA RECOMMENDATION SEE BELOW Normal [facility] Comment on above: Result Comment: ADA RECOMMENDED LIMIT 4.0 - 6.0 ADA THERAPEUTIC TARGET < 7.0 ACTION SUGGESTED > 7.0 Performed By: #### R ENAL, LIPID, LIVER, TSH #### [facility] [address] [address] [address] Eddie Lerner Glucose [Mass/Vol] 235 mg/dL Normal [facility] Comment on above: Performed By: #### R ENAL, LIPID, LIVER, TSH #### [facility] [address] [address] [address] Eddie Lerner HbA1c (Bld) [Mass fraction] 9.8 % Critically high 4.5-6.2 [facility] Comment on above: Performed By: #### R ENAL, LIPID, LIVER, TSH #### [facility] [address] [address] [address] Eddie Lerner GRAM STAINon 08-20-2022 COMMENTS NO ORGANISMS OBSERVED Normal [facility] Comment on above: Performed By: #### G STAIN ####[facility] [address] [address]Dr. Eddie Lerner DIPHTHEROIDS Normal [facility] Comment on above: Performed By: #### G STAIN ####[facility] [address] [address]Dr. Eddie Lerner EPITHELIALS Normal [facility] Comment on above: Performed By: #### G STAIN ####[facility] [address] [address]Dr. Eddie Lerner FUNGAL ELEMENTS Normal [facility] Comment on above: Performed By: #### G STAIN ####[facility] [address] [address]Dr. Eddie Lerner GRAM NEG BACILLI Normal [facility] Comment on above: Performed By: #### G STAIN ####[facility] [address] [address]Dr. Eddie Lerner GRAM NEG DIPPLOCOCCI Normal [facility] Comment on above: Performed By: #### G STAIN ####[facility] [address] [id number]. Eddie Lerner GRAM POS BACILLI Normal [facility] Comment on above: Performed By: #### G STAIN ####[facility] [address] [id number]. Eddie Lerner GRAM POSITIVE COCCI Normal [facility] Comment on above: Performed By: #### G STAIN ####[facility] [address] [id number]. Eddie Lerner GRAM STAIN SOURCE Lt Foot Bone Normal [facility] Comment on above: Performed By: #### G STAIN ####[facility] [address] [address]Dr. Eddie Lerner GS_DIPTH Normal [facility] Comment on above: Performed By: #### G STAIN ####[facility] [address] [address]Dr. Eddie Lerner WBC RARE Normal [facility] Comment on above: Performed By: #### G STAIN ####[facility] [address] [address]Dr. Eddie Lerner LIPID PROFILEon 08-20-2022 CHOL-HDL RATIO NORM SEE BELOW Normal [facility] Comment on above: Result Comment: 3.3 - 4.4 LOW RISK 4.4 - 7.1 AVERAGE RISK 7.1 - 11.0 MODERATE RISK >11.0 HIGH RISK Performed By: #### A 1C #### [facility] [address] [address] [address] Eddie Lerner Cholesterol [Mass/Vol] 137 mg/dL Normal <=200 [facility] Comment on above: Performed By: #### A 1C #### [facility] [address] [address] [address] Eddie Lerner Cholesterol in HDL [Mass/Vol] 54 mg/dL Normal 40-60 [facility] Comment on above: Performed By: #### A 1C #### [facility] [address] [address] [address] Eddie Lerner Cholesterol in LDL [Mass/Vol] 63.2 mg/dL Normal [facility] Comment on above: Performed By: #### A 1C #### [facility] [address] [address] [address] dEdie Lerner Cholesterol.total/C holesterol in HDL [Mass ratio] 2.5 {ratio} Normal [facility] Comment on above: Performed By: #### A 1C #### [facility] [address] [address] [address] Eddie Lerner HDL NORMAL > or = 60 mg/dl - LO W CARDIOVASCULAR RISK <40 mg/dl - HIGH CARDIOVASCULAR RISK Normal [facility] Comment on above: Performed By: #### A 1C #### [facility] [address] [address] [address] Eddie Lerner LDL CALC NORMAL SEE BELOW Normal [facility] Comment on above: Result Comment: <100 mg/dl OPTIMAL 100 - 129 mg/dl NEAR OR ABOVE OPTIMAL 130 - 159 mg/dl BORDERLINE HIGH 160 - 189 mg/dl HIGH >190 mg/dl VERY HIGH Performed By: #### A 1C #### [facility] [address] [place] [address] Dr. Eddie Lerner Triglyceride [Mass/Vol] 99 mg/dL Normal <=150 [facility] Comment on above: Performed By: #### A 1C #### [facility] [address] [place] [address] Dr. Eddie Lerner VLDL CALC 19.8 mg/dL Normal [facility] Comment on above: Performed By: #### A 1C #### [facility] [address] [address] [address] Eddie Lerner LIVER PROFILEon 08-20-2022 Albumin [Mass/Vol] 2.8 g/dL Critically low 3.4-5.0 [facility] Comment on above: Performed By: #### A 1C #### [facility] [address] [place] [address] Dr. Eddie Lerner Albumin/Globulin [Mass ratio] 0.6 {ratio} Normal [facility] Comment on above: Performed By: #### A 1C #### [facility] [address] [place] [address] Dr. Eddie Lerner ALP [Catalytic activity/Vol] 87 U/L Normal 46-116 [facility] Comment on above: Performed By: #### A 1C #### [facility] [address] [place] [address] Dr. Eddie Lerner ALT [Catalytic activity/Vol] 49 U/L Normal 16-63 [facility] Comment on above: Performed By: #### A 1C #### [facility] [address] [place] [address] Dr. Eddie Lerner AST [Catalytic activity/Vol] 36 U/L Normal 15-37 [facility] Comment on above: Performed By: #### A 1C #### [facility] [address] [place] [address] Dr. Eddie Lerner BILI, CONJUGATED 0.1 mg/dL Normal 0.0-0.2 [facility] Comment on above: Performed By: #### A 1C #### [facility] [address] [place] [address] Dr. Eddie Lerner Bilirubin [Mass/Vol] 0.4 mg/dL Normal 0.2-1.0 [facility] Comment on above: Performed By: #### A 1C #### [facility] [address] [place] [address] Dr. Eddie Lerner Globulin (S) [Mass/Vol] 4.4 g/dL Normal [facility] Comment on above: Performed By: #### A 1C #### [facility] [address] [place] [address] Dr. Eddie Lerner Protein [Mass/Vol] 7.2 g/dL Normal 6.4-8.2 [facility] Comment on above: Performed By: #### A 1C #### [facility] [address] [place] [address] Dr. Eddie Lerner POINT OF CARE GLUCOSEon 04-2 Glucose [Mass/Vol] 107 mg/dL Critically high 74-[address] [facility] Comment on above: Performed By: #### P OCGLUC #### [facility] [address] [place] [address] Dr. Eddie Lerner Glucose [Mass/Vol] 108 mg/dL Critically high 74-[address] [facility] Comment on above: Performed By: #### P OCGLUC ####[facility] [address] [address]DrVaishali Lerner TSHon 08-20-2022 TSH 2.247 uIU/mL Normal 0.358-3.740 [facility] Comment on above: Performed By: #### A 1C #### [facility] [address] [address] DrVaishali Lerner CBC AUTO DIFFon 08-15-2022 BASO # 0.0 103/ul Normal 0.0-0.1 [facility] Comment on above: Performed By: #### C BC ####[facility] [address] [address]DrVaishali Lerner Basophils/100 WBC (Bld) 0.4 % Normal 0.2-2.0 [facility] Comment on above: Performed By: #### C BC ####[facility] [address] [place], [place] [address]DrVaishali Lerner EO # 0.2 103/ul Normal 0.0-0.7 [facility] Comment on above: Performed By: #### C BC ####[facility] [address] [address]DrVaishali Lerner Eosinophils/100 WBC (Bld) 2.0 % Normal 0.9-7.0 [facility] Comment on above: Performed By: #### C BC ####[facility] [address] [address]DrVaishali Lerner Erythrocyte distribution width (RBC) [Ratio] 14.5 % Normal 11.0-15.0 [facility] Comment on above: Performed By: #### C BC ####[facility] [address] [address]DrVaishali Lerner Hematocrit (Bld) [Volume fraction] 40.5 % Critically low 42.0-54.0 [facility] Comment on above: Performed By: #### C BC ####[facility] [address] [id number]. Eddie Lerner Hemoglobin (Bld) [Mass/Vol] 13.1 g/dL Critically low 14.0-18.0 [facility] Comment on above: Performed By: #### C BC ####[facility] [address] [address]Dr. Eddie Lerner IG # 0.12 10e3/ul Critically high 0.00-0.03 [facility] Comment on above: Performed By: #### C BC ####[facility] [address] [address]Dr. Eddie Lerner IG % 1.2 % Critically high 0.0-0.5 [facility] Comment on above: Performed By: #### C BC ####[facility] [address] [address]Dr. Eddie Lerner LYMPH # 1.4 103/ul Normal 1.2-3.8 [facility] Comment on above: Performed By: #### C BC ####[facility] [address] [address]Dr. Eddie Lerner Lymphocytes/100 WBC (Bld) 13.6 % Critically low 20.5-60.0 [facility] Comment on above: Performed By: #### C BC ####[facility] [address] [address]Dr. Eddie Lerner MANUAL DIFF REQ NO Normal [facility] Comment on above: Performed By: #### C BC ####[facility] [address] [address]Dr. Eddie Lerner MCH (RBC) [Entitic mass] 29.8 pg Normal 25.9-34.0 [facility] Comment on above: Performed By: #### C BC ####[facility] [address] [place], [place] [address]Dr. Eddie Lerner MCHC (RBC) [Mass/Vol] 32.3 g/dL Normal 29.9-35.2 [facility] Comment on above: Performed By: #### C BC ####[facility] [address] [id number]. Eddie Lerner MCV (RBC) [Entitic vol] 92.0 fL Normal 80.0-94.0 [facility] Comment on above: Performed By: #### C BC ####[facility] [address] [id number]. Eddie Lerner MONO # 0.5 103/ul Normal 0.3-0.8 [facility] Comment on above: Performed By: #### C BC ####[facility] [address] [address]Dr. Eddie Lerner Monocytes/100 WBC (Bld) 4.8 % Normal 1.7-12.0 [facility] Comment on above: Performed By: #### C BC ####[facility] [address] [place], [place] [address]Dr. Eddie Lerenr NEUT # 8.1 103/ul Critically high 1.4-6.5 [facility] Comment on above: Performed By: #### C BC ####[facility] [address] [place], [place] [address]Dr. Eddie Lerner Neutrophils/100 WBC (Bld) 78.0 % Critically high 43.0-75.0 [facility] Comment on above: Performed By: #### C BC ####[facility] [address] [place], [place] [address]Dr. Eddie Lerner Platelet mean volume (Bld) [Entitic vol] 8.6 fL Critically low 9.5-13.5 [facility] Comment on above: Performed By: #### C BC ####[facility] [address] [id number]. Eddie Yann PLT 240 103/ul Normal 150-450 [facility] Comment on above: Performed By: #### C BC ####[facility] [address] [id number]. Dainaquincy Yann RBC 4.40 106/ul Critically low 4.70-6.10 [facility] Comment on above: Performed By: #### C BC ####[facility] [address] [address]Dr. Eddie Lerner WBC 10.3 103/ul Normal 4.0-11.0 [facility] Comment on above: Performed By: #### C BC ####[facility] [address] [address]Dr. Eddie Lerner CRPon 08-15-2022 CRP [Mass/Vol] mg/L Normal <=1.0 [facility] Comment on above: Performed By: #### A 1C #### [facility] [address] [address] [address] Eddie Lerner PROF CHEM 8 (BAS METB)on Anion gap [Moles/Vol] 14.4 mmol/L Normal [facility] Comment on above: Performed By: #### A 1C #### [facility] [address] [place] [address] Dr. Eddie Lerner Calcium [Mass/Vol] 9.2 mg/dL Normal 8.5-10.1 [facility] Comment on above: Performed By: #### A 1C #### [facility] [address] [address] [address] Eddie Lerner Chloride [Moles/Vol] 101 mmol/L Normal 98-107 [facility] Comment on above: Performed By: #### A 1C #### [facility] [address] [place] [address] Dr. Eddie Lerner CO2 [Moles/Vol] 25.2 mmol/L Normal 21.0-32.0 [facility] Comment on above: Performed By: #### A 1C #### [facility] [address] [address] [address] Eddie Lerner Creatinine [Mass/Vol] 3.07 mg/dL Critically high 0.70-1.30 [facility] Comment on above: Performed By: #### A 1C #### [facility] [address] [place] [address] Dr. Eddie Lerner EGFR-AF [place] 25 mL/min/1.73m2 Critically low >=60 [facility] Comment on above: Performed By: #### A 1C #### [facility] [address] [address] [address] Eddie Lerner EGFR-NON AF [place] 21 mL/min/1.73m2 Critically low >=60 [facility] Comment on above: Performed By: #### A 1C #### [facility] [address] [address] [address] Eddie Lerner Glucose [Mass/Vol] 415 mg/dL Critically high 74-[address] [facility] Comment on above: Performed By: #### A 1C #### [facility] [address] [address] [address] Eddie Lerner Potassium [Moles/Vol] 5.6 mmol/L Critically high 3.5-5.1 [facility] Comment on above: Performed By: #### A 1C #### [facility] [address] [address] [address] Eddie Lerner Sodium [Moles/Vol] 135 mmol/L Critically low 136-145 Th [facility] Comment on above: Performed By: #### A 1C #### [facility] [address] [address] [address] Eddie Lerner Urea nitrogen [Mass/Vol] 34.0 mg/dL Critically high 7.0-18.0 [facility] Comment on above: Performed By: #### A 1C #### [facility] [address] [address] [address] Eddie Lerner Urea nitrogen/Creatinine [Mass ratio] 11.1 mg/mg Normal [facility] Comment on above: Performed By: #### A 1C #### [facility] [address] [address] [address] Eddie Lerner SED RATE WESTERGREN 2022 SED RATE 59 mm/hr Critically high <=20 [facility] Comment on above: Performed By: #### S EDR ####[facility] [address] [address]Dr. Eddie Lerner BNPon 06-06-2022 Natriuretic peptide B (Bld) [Mass/Vol] 1342.0 pg/mL Critically high <=900.0 [facility] Comment on above: Performed By: #### B GRINDER SETUP OPERATOR ####[facility] [address] [place], [place] [address]BdDr. Eddie Lerner CBC AUTO DIFFon 06-06-2022 BASO # 0.1 103/ul Normal 0.0-0.1 [facility] Comment on above: Performed By: #### A 1C #### [facility] [address] [address] [address] Eddie Lerner Basophils/100 WBC (Bld) 0.6 % Normal 0.2-2.0 [facility] Comment on above: Performed By: #### A 1C #### [facility] [address] [address] [address] Eddie Lerner EO # 0.2 103/ul Normal 0.0-0.7 [facility] Comment on above: Performed By: #### A 1C #### [facility] [address] [address] [address] Eddie Lerner Eosinophils/100 WBC (Bld) 1.8 % Normal 0.9-7.0 [facility] Comment on above: Performed By: #### A 1C #### [facility] [address] [address] [address] Eddie Lerner Erythrocyte distribution width (RBC) [Ratio] 15.2 % Critically high 11.0-15.0 [facility] Comment on above: Performed By: #### A 1C #### [facility] [address] [address] [address] Eddie Lerner Hematocrit (Bld) [Volume fraction] 39.0 % Critically low 42.0-54.0 [facility] Comment on above: Performed By: #### A 1C #### [facility] [address] [address] [address] Eddie Lerner Hemoglobin (Bld) [Mass/Vol] 12.4 g/dL Critically low 14.0-18.0 [facility] Comment on above: Performed By: #### A 1C #### [facility] [address] [address] [address] Eddie Lerner IG # 0.21 10e3/ul Critically high 0.00-0.03 [facility] Comment on above: Performed By: #### A 1C #### [facility] [address] [place] [address] Dr. Eddie Lerner IG % 1.6 % Critically high 0.0-0.5 [facility] Comment on above: Performed By: #### A 1C #### [facility] [address] [place] [address] Dr. Eddie Lerner LYMPH # 1.9 103/ul Normal 1.2-3.8 [facility] Comment on above: Performed By: #### A 1C #### [facility] [address] [place] [address] Dr. Eddie Lerner Lymphocytes/100 WBC (Bld) 13.8 % Critically low 20.5-60.0 [facility] Comment on above: Performed By: #### A 1C #### [facility] [address] [place] [address] Dr. Eddie Lerner MANUAL DIFF REQ NO Normal [facility] Comment on above: Performed By: #### A 1C #### [facility] [address] [place] [address] Dr. Eddie Lerner MCH (RBC) [Entitic mass] 27.8 pg Normal 25.9-34.0 [facility] Comment on above: Performed By: #### A 1C #### [facility] [address] [place] [address] Dr. Eddie Lerner MCHC (RBC) [Mass/Vol] 31.8 g/dL Normal 29.9-35.2 [facility] Comment on above: Performed By: #### A 1C #### [facility] [address] [place] [address] Dr. Eddie Lerner MCV (RBC) [Entitic vol] 87.4 fL Normal 80.0-94.0 [facility] Comment on above: Performed By: #### A 1C #### [facility] [address] [place] [address] Dr. Eddie Lerner MONO # 0.8 103/ul Normal 0.3-0.8 [facility] Comment on above: Performed By: #### A 1C #### [facility] [address] [address] [address] Eddie Lerner Monocytes/100 WBC (Bld) 5.9 % Normal 1.7-12.0 [facility] Comment on above: Performed By: #### A 1C #### [facility] [address] [address] [address] Eddie Lerner NEUT # 10.3 103/ul Critically high 1.4-6.5 [facility] Comment on above: Performed By: #### A 1C #### [facility] [address] [place] [address] Dr. Eddie Lerner Neutrophils/100 WBC (Bld) 76.3 % Critically high 43.0-75.0 [facility] Comment on above: Performed By: #### A 1C #### [facility] [address] [place] [address] Dr. Eddie Lerner Platelet mean volume (Bld) [Entitic vol] 10.2 fL Normal 9.5-13.5 [facility] Comment on above: Performed By: #### A 1C #### [facility] [address] [address] [address] Eddie Lerner PLT 288 103/ul Normal 150-450 [facility] Comment on above: Performed By: #### A 1C #### [facility] [address] [place] [address] Dr. Eddie Lerner RBC 4.46 106/ul Critically low 4.70-6.10 [facility] Comment on above: Performed By: #### A 1C #### [facility] [address] [place] [address] Dr. Eddie Lerner WBC 13.5 103/ul Critically high 4.0-11.0 [facility] Comment on above: Performed By: #### A 1C #### [facility] [address] [place] [address] Dr. Eddie Lerner GLYCOHEMOGLOBIN A1Con 2022 ADA RECOMMENDATION SEE BELOW Normal [facility] Comment on above: Result Comment: ADA RECOMMENDED LIMIT 4.0 - 6.0 ADA THERAPEUTIC TARGET < 7.0 ACTION SUGGESTED > 7.0 Performed By: #### A 1C #### [facility] [address] [address] [address] Eddie Lerner Glucose [Mass/Vol] 283 mg/dL Normal [facility] Comment on above: Performed By: #### A 1C #### [facility] [address] [address] [address] Eddie Lerner HbA1c (Bld) [Mass fraction] 11.5 % Critically high 4.5-6.2 [facility] Comment on above: Performed By: #### A 1C #### [facility] [address] [address] [address] Eddie Lerner LIPID PROFILEon 06-06-2022 CHOL-HDL RATIO NORM SEE BELOW Normal [facility] Comment on above: Result Comment: 3.3 - 4.4 LOW RISK 4.4 - 7.1 AVERAGE RISK 7.1 - 11.0 MODERATE RISK >11.0 HIGH RISK Performed By: #### R ENAL, LIPID, LIVER, TSH #### [facility] [address] [address] [address] Eddie Lerner Cholesterol [Mass/Vol] 152 mg/dL Normal <=200 [facility] Comment on above: Performed By: #### R ENAL, LIPID, LIVER, TSH #### [facility] [address] [place] [address] Dr. Eddie Lerner Cholesterol in HDL [Mass/Vol] 51 mg/dL Normal 40-60 [facility] Comment on above: Performed By: #### R ENAL, LIPID, LIVER, TSH #### [facility] [address] [address] [address] Eddie Lerner Cholesterol in LDL [Mass/Vol] 61.0 mg/dL Normal [facility] Comment on above: Performed By: #### R ENAL, LIPID, LIVER, TSH #### [facility] [address] [place] [address] Dr. Eddie Lerner Cholesterol.total/C holesterol in HDL [Mass ratio] 3.0 {ratio} Normal [facility] Comment on above: Performed By: #### R ENAL, LIPID, LIVER, TSH #### [facility] [address] [address] [address] Eddie Lerner HDL NORMAL > or = 60 mg/dl - LO W CARDIOVASCULAR RISK <40 mg/dl - HIGH CARDIOVASCULAR RISK Normal [facility] Comment on above: Performed By: #### R ENAL, LIPID, LIVER, TSH #### [facility] [address] [address] [address] Eddie Lerner LDL CALC NORMAL SEE BELOW Normal [facility] Comment on above: Result Comment: <100 mg/dl OPTIMAL 100 - 129 mg/dl NEAR OR ABOVE OPTIMAL 130 - 159 mg/dl BORDERLINE HIGH 160 - 189 mg/dl HIGH >190 mg/dl VERY HIGH Performed By: #### R ENAL, LIPID, LIVER, TSH #### [facility] [address] [address] [address] Eddie Lerner Triglyceride [Mass/Vol] 200 mg/dL Critically high <=150 [facility] Comment on above: Performed By: #### R ENAL, LIPID, LIVER, TSH #### [facility] [address] [address] [address] Eddie Lerner VLDL CALC 40.0 mg/dL Normal [facility] Comment on above: Performed By: #### R ENAL, LIPID, LIVER, TSH #### [facility] [address] [address] [address] Eddie Lerner LIVER PROFILEon 06-06-2022 Albumin [Mass/Vol] 2.6 g/dL Critically low 3.4-5.0 [facility] Comment on above: Performed By: #### R ENAL, LIPID, LIVER, TSH #### [facility] [address] [address] [address] Eddie Lerner Albumin/Globulin [Mass ratio] 0.6 {ratio} Normal [facility] Comment on above: Performed By: #### R ENAL, LIPID, LIVER, TSH #### [facility] [address] [address] [address] Eddie Lerner ALP [Catalytic activity/Vol] 120 U/L Critically high 46-116 [facility] Comment on above: Performed By: #### R ENAL, LIPID, LIVER, TSH #### [facility] [address] [address] [address] Eddie Lerner ALT [Catalytic activity/Vol] 22 U/L Normal 16-63 [facility] Comment on above: Performed By: #### R ENAL, LIPID, LIVER, TSH #### [facility] [address] [place] [address] Dr. Eddie Lerner AST [Catalytic activity/Vol] 15 U/L Normal 15-37 [facility] Comment on above: Performed By: #### R ENAL, LIPID, LIVER, TSH #### [facility] [address] [place] [address] Dr. Eddie Lerner BILI, CONJUGATED 0.1 mg/dL Normal 0.0-0.2 [facility] Comment on above: Performed By: #### R ENAL, LIPID, LIVER, TSH #### [facility] [address] [place] [address] Dr. Eddie Lerner Bilirubin [Mass/Vol] 0.3 mg/dL Normal 0.2-1.0 [facility] Comment on above: Performed By: #### R ENAL, LIPID, LIVER, TSH #### [facility] [address] [place] [address] Dr. Eddie Lerner Globulin (S) [Mass/Vol] 4.7 g/dL Normal [facility] Comment on above: Performed By: #### R ENAL, LIPID, LIVER, TSH #### [facility] [address] [place] [address] Dr. Eddie Lerner Protein [Mass/Vol] 7.3 g/dL Normal 6.4-8.2 [facility] Comment on above: Performed By: #### R ENAL, LIPID, LIVER, TSH #### [facility] [address] [place] [address] Dr. Eddie Lerner RENAL FUNCTION PANELon 06-06 Calcium [Mass/Vol] 9.0 mg/dL Normal 8.5-10.1 [facility] Comment on above: Performed By: #### R ENAL, LIPID, LIVER, TSH #### [facility] [address] [address] [address] Eddie Lerner Chloride [Moles/Vol] 96 mmol/L Critically low 98-107 [facility] Comment on above: Performed By: #### R ENAL, LIPID, LIVER, TSH #### [facility] [address] [address] [address] Eddie Lerner CO2 [Moles/Vol] 21.8 mmol/L Normal 21.0-32.0 [facility] Comment on above: Performed By: #### R ENAL, LIPID, LIVER, TSH #### [facility] [address] [address] [address] Eddie Lerner Creatinine [Mass/Vol] 2.38 mg/dL Critically high 0.70-1.30 [facility] Comment on above: Performed By: #### R ENAL, LIPID, LIVER, TSH #### [facility] [address] [place] [address] Dr. Eddie Lerner EGFR-AF [place]LANDER 34 mL/min/1.73m2 Critically low >=60 [facility] Comment on above: Performed By: #### R ENAL, LIPID, LIVER, TSH #### [facility] [address] [place] [address] Dr. Eddie Lerner EGFR-NON AF [place] 28 mL/min/1.73m2 Critically low >=60 [facility] Comment on above: Performed By: #### R ENAL, LIPID, LIVER, TSH #### [facility] [address] [place] [address] Dr. Eddie Lerner Glucose [Mass/Vol] 523 mg/dL Critically high 74-106 [facility] Comment on above: Performed By: #### R ENAL, LIPID, LIVER, TSH #### [facility] [address] [place] [address] Dr. Eddie Lerner Phosphate [Mass/Vol] 4.1 mg/dL Normal 2.6-4.7 [facility] Comment on above: Performed By: #### R ENAL, LIPID, LIVER, TSH #### [facility] [address] [place] [address] Dr. Eddie Lerner Potassium [Moles/Vol] 4.6 mmol/L Normal 3.5-5.1 [facility] Comment on above: Performed By: #### R ENAL, LIPID, LIVER, TSH #### [facility] [address] [place] [address] Dr. Eddie Lerner Sodium [Moles/Vol] 128 mmol/L Critically low 136-145 [facility] Comment on above: Performed By: #### R ENAL, LIPID, LIVER, TSH #### [facility] [address] [place] [address] Dr. Eddie Lerner Urea nitrogen [Mass/Vol] 28.0 mg/dL Critically high 7.0-18.0 [facility] Comment on above: Performed By: #### R ENJOHN, LIPID, LIVER, TSH #### [facility] [address] [place] [address] Dr. Eddie Lerner TSHon 06-06-2022 TSH 1.308 uIU/mL Normal 0.358-3.740 [facility] Comment on above: Performed By: #### R ENJOHN, LIPID, LIVER, TSH #### [facility] [address] [place] [address] Dr. Eddie Lerner UA RANDOMon 06-06-2022 Bilirubin Ql (U) Negative Normal NEGATIVE [facility] Comment on above: Performed By: #### U A #### [facility] [address] [place] [address] Dr. Eddie Lerner Clarity (U) CLEAR Normal CLEAR [facility] Comment on above: Performed By: #### U A #### [facility] [address] [place] [address] Dr. Eddie Lerner Color (U) LT. YELLOW Normal YELLOW [facility] Comment on above: Performed By: #### U A #### [facility] [address] [place] [address] Dr. Eddie Lerner Glucose Ql (U) >1000 Abnormal NEGATIVE [facility] Comment on above: Performed By: #### U A #### [facility] [address] [place] [address] Dr. Eddie Lerner Hemoglobin Ql (U) TRACE-INTACT Abnormal NEGATIVE [facility] Comment on above: Performed By: #### U A #### [facility] [address] [place] [address] Dr. Eddie Lerner Ketones Ql (U) Negative Normal NEGATIVE [facility] Comment on above: Performed By: #### U A #### [facility] [address] [place] [address] Dr. Eddie Lerner LEUKOCYTES Negative Normal NEGATIVE [facility] Comment on above: Performed By: #### U A #### [facility] [address] [place] [address] Dr. Eddie Lerner Nitrite Ql (U) Negative Normal NEGATIVE [facility] Comment on above: Performed By: #### U A #### [facility] [address] [place] [address] Dr. Eddie Lerner pH (U) 6.5 [pH] Normal 5-9 [facility] Comment on above: Performed By: #### U A #### [facility] [address] [place] [address] Dr. Eddie Lerner SPEC GRAVITY 1.010 Normal 1.005-<=1.025 [facility] Comment on above: Performed By: #### U A #### [facility] [address] [place] [address] Dr. Eddie Lerner UA PROTEIN 100 mg/dl Abnormal NEGATIVE/ TRACE [facility] Comment on above: Performed By: #### U A #### [facility] [address] [place] [address] Dr. Eddie Lerner Urobilinogen Qn (U) 0.2 {Chaya'U}/dL Normal 0.2 - 1. 0 [facility] Comment on above: Performed By: #### U A #### [facility] [address] [place] [address] Dr. Eddie Lerner VITAMIN D 25 OHon 06-06-2022 VIT D 25-OH 13.9 ng/mL Normal [facility] Comment on above: Performed By: #### V ITAD ####[facility] [address] [place] [id number] Eddie Lerner VIT D RANGES SEE BELOW Normal [facility] Comment on above: Result Comment: <20 ng/mL Vit D deficient 20 - <30 ng/mL Vit D insufficient 30 - 100 ng/mL Vit D sufficient >100 ng/mL Potential Toxicity Performed By: #### V ITAD ####[facility] [address] [address] Eddie Lerner ACID FAST SMEAR AND CXon Acid Fast Culture Negative Normal [facility] Comment on above: Result Comment: No a wendy fast bacilli isolated after 6 weeks. Performed By: #### A FB ####[facility] [address] [place], [place] [address]Dr. Eddie Lerner Acid Fast Smear Negative Normal [facility] Comment on above: Performed By: #### A FB ####[facility] [address] [place], [place] [address]Dr. Eddie Lerner [employer] Specimen Processing Tissue Grinding Normal [facility] Comment on above: Performed By: #### A FB ####[facility] [address] [address] Eddie Lerner FUNGAL CULTUREon 01-19-2022 Fungus (Mycology) Culture Final report Normal [facility] Comment on above: Performed By: #### R ENJOHN, LIPID, LIVER, TSH #### [facility] [address] [address] [address] Eddie Lerner Fungus Stain Final report Normal [facility] Comment on above: Performed By: #### R ENAL, LIPID, LIVER, TSH #### [facility] [address] [address] [address] Eddie Lerner Result 1 Comment Normal [facility] Comment on above: Result Comment: ANNEMARIE/ Calcofluor preparation: no fungus observed. Performed By: #### R ENAL, LIPID, LIVER, TSH #### [facility] [address] [address] [address] Eddie Lerner Result Comment: No y east or mold isolated after 4 weeks. POINT OF CARE GLUCOSEon - Glucose [Mass/Vol] 177 mg/dL Critically high 74-106 [facility] Comment on above: Performed By: #### A 1C #### [facility] [address] [address] [address] Eddie Lerner Glucose [Mass/Vol] 200 mg/dL Critically high 74-106 [facility] Comment on above: Performed By: #### P OCGLUC ####[facility] [address] [place], [place] [address]VnDr. Eddie Lerner Covid-19 PCR (CVDTBH)on 12-28 SARS-CoV-2 (COVID-19) RNA SUDHA+probe Ql (Unsp spec) Not detected Normal NOT DETECTED [facility] Comment on above: Result Comment: This test is not yet approved or cleared by the [place] FDA. When there are no FDA-approved or cleared tests available, and other criteria are met, FDA can make tests available under an emergency access mechanism called an Emergency Use Authorization (EUA). The EUA for this test is supported by the Surgeon/President of Health and Human Service's (HHS's) declaration [...] SARS-CoV-2. Performed By: #### A 1C #### [facility] [address] [id number] [address] Eddie Lerner PROF CHEM 8 (BAS METB)on Anion gap [Moles/Vol] 15.0 mmol/L Normal [facility] Comment on above: Performed By: #### R ENAL, LIPID, LIVER, TSH #### [facility] [address] [place], [place] [address] Dr. Eddie Lerner Calcium [Mass/Vol] 9.3 mg/dL Normal 8.5-10.1 [facility] Comment on above: Performed By: #### R ENAL, LIPID, LIVER, TSH #### [facility] [address] [address] [address] Eddie Lerner Chloride [Moles/Vol] 105 mmol/L Normal 98-107 [facility] Comment on above: Performed By: #### R ENAL, LIPID, LIVER, TSH #### [facility] [address] [place] [address] Dr. Eddie Lerner CO2 [Moles/Vol] 22.1 mmol/L Normal 21.0-32.0 [facility] Comment on above: Performed By: #### R ENAL, LIPID, LIVER, TSH #### [facility] [address] [place] [address] Dr. Eddie Lerner Creatinine [Mass/Vol] 2.29 mg/dL Critically high 0.70-1.30 [facility] Comment on above: Performed By: #### R ENAL, LIPID, LIVER, TSH #### [facility] [address] [place] [address] Dr. Eddie Lerner EGFR-AF [place]ER 35 mL/min/1.73m2 Critically low >=60 [facility] Comment on above: Performed By: #### R ENAL, LIPID, LIVER, TSH #### [facility] [address] [place] [address] Dr. Eddie Lerner EGFR-NON AF [place] 29 mL/min/1.73m2 Critically low >=60 [facility] Comment on above: Performed By: #### R ENAL, LIPID, LIVER, TSH #### [facility] [address] [place] [address] Dr. Eddie Lerner Glucose [Mass/Vol] 115 mg/dL Critically high 74-[address] [facility] Comment on above: Performed By: #### R ENAL, LIPID, LIVER, TSH #### [facility] [address] [place] [address] Dr. Eddie Lerner Potassium [Moles/Vol] 5.1 mmol/L Normal 3.5-5.1 [facility] Comment on above: Performed By: #### R ENAL, LIPID, LIVER, TSH #### [facility] [address] [address] [address] Eddie Lerner Sodium [Moles/Vol] 137 mmol/L Normal 136-145 [facility] Comment on above: Performed By: #### R ENAL, LIPID, LIVER, TSH #### [facility] [address] [address] [address] Eddie Lerner Urea nitrogen [Mass/Vol] 26.0 mg/dL Critically high 7.0-18.0 [facility] Comment on above: Performed By: #### R ENAL, LIPID, LIVER, TSH #### [facility] [address] [address] [address] Eddie Lerner Urea nitrogen/Creatinine [Mass ratio] 11.4 mg/mg Normal [facility] Comment on above: Performed By: #### R ENAL, LIPID, LIVER, TSH #### [facility] [address] [address] [address] Eddie Lerner TISSUE CULTUREon 01-08-2022 Anaerobic Culture, Extended Incubation Final report Normal [facility] Comment on above: Performed By: #### C XTISSU ####[facility] [address] [address]DrVaishali Lerner Result 1 Comment Normal [facility] Comment on above: Result Comment: Diph theroids, not Corynebacterium jeikeium Light growth Susceptibility not normally performed on this organism. Performed By: #### C XTISSU ####[facility] [address] [address]DrVaishali Lerner Result Comment: No a naerobes recovered. Tissue Culture Final report Abnormal [facility] Comment on above: Performed By: #### C XTISSU ####[facility] [address] [address]Dr. Eddie Lerner POINT OF CARE GLUCOSEon 08-2 Glucose [Mass/Vol] 89 mg/dL Normal 74-106 [facility] Comment on above: Performed By: #### R ENAL, LIPID, LIVER, TSH #### [facility] [address] [address] [address] Eddie Lerner Glucose [Mass/Vol] 85 mg/dL Normal 74-106 [facility] Comment on above: Performed By: #### P OCGLUC ####[facility] [address] [address]Dr. Eddie Lerner GRAM STAINon 12-21-2021 COMMENTS NO ORGANISMS OBSERVED Normal [facility] Comment on above: Performed By: #### R ENAL, LIPID, LIVER, TSH #### [facility] [address] [address] [address] Eddie Lerner DIPHTHEROIDS Normal [facility] Comment on above: Performed By: #### R ENAL, LIPID, LIVER, TSH #### [facility] [address] [address] [address] Eddie Lerner EPITHELIALS Normal [facility] Comment on above: Performed By: #### R ENAL, LIPID, LIVER, TSH #### [facility] [address] [address] [address] Eddie Lerner FUNGAL ELEMENTS Normal [facility] Comment on above: Performed By: #### R ENAL, LIPID, LIVER, TSH #### [facility] [address] [address] [address] Eddie Lerner GRAM NEG BACILLI Normal [facility] Comment on above: Performed By: #### R ENAL, LIPID, LIVER, TSH #### [facility] [address] [address] [address] Eddie PRINGLE NEG DIPPLOCOCCI Normal [facility] Comment on above: Performed By: #### R ENAL, LIPID, LIVER, TSH #### [facility] [address] [address] [address] Eddie Lerner GRAM POS BACILLI Normal [facility] Comment on above: Performed By: #### R ENAL, LIPID, LIVER, TSH #### [facility] [address] [address] [address] Eddie Lerner GRAM POSITIVE COCCI Normal [facility] Comment on above: Performed By: #### R ENAL, LIPID, LIVER, TSH #### [facility] [address] [address] [address] Eddie Lerner GRAM STAIN SOURCE Lt 1st Metatarsal Bone Normal [facility] Comment on above: Performed By: #### R ENAL, LIPID, LIVER, TSH #### [facility] [address] [address] [address] Eddie Lerner GS_DIPTH Normal [facility] Comment on above: Performed By: #### R ENAL, LIPID, LIVER, TSH #### [facility] [address] [address] [address] Eddie Lerner WBC RARE Normal [facility] Comment on above: Performed By: #### R ENAL, LIPID, LIVER, TSH #### [facility] [address] [address] [address] Eddie Lerner POINT OF CARE GLUCOSEon 11-28 Glucose [Mass/Vol] 148 mg/dL Critically high 74-106 [facility] Comment on above: Performed By: #### A 1C #### [facility] [address] [address] [address] Eddie Lerner Glucose [Mass/Vol] 100 mg/dL Normal 74-106 [facility] Comment on above: Performed By: #### P OCGLUC ####[facility] [address] [address]Dr. Eddie Lerner Glucose [Mass/Vol] 85 mg/dL Normal 74-106 [facility] Comment on above: Performed By: #### P OCGLUC ####[facility] [address] [address]Dr. Eddie Lerner Glucose [Mass/Vol] 83 mg/dL Normal 74-106 [facility] Comment on above: Performed By: #### R ENAL, LIPID, LIVER, TSH #### [facility] [address] [address] [address] Eddie Lerner Covid-19 PCR (CVDTB)on 11-28 SARS-CoV-2 (COVID-19) RNA SUDHA+probe Ql (Unsp spec) Not detected Normal NOT DETECTED [facility] Comment on above: Result Comment: This test is not yet approved or cleared by the [place] FDA. When there are no FDA-approved or cleared tests available, and other criteria are met, FDA can make tests available under an emergency access mechanism called an Emergency Use Authorization (EUA). The EUA for this test is supported by the Surgeon/President of Health and Human Service's (HHS's) declaration [...] with SARS-CoV-2. Performed By: #### C VDTBH ####[facility] [address] [address]Dr. Eddie Lerner PROF CHEM 8 (BAS METB)on Anion gap [Moles/Vol] 11.5 mmol/L Normal [facility] Comment on above: Performed By: #### R ENAL, LIPID, LIVER, TSH #### [facility] [address] [address] [address] Eddie Lerner Calcium [Mass/Vol] 9.0 mg/dL Normal 8.5-10.1 [facility] Comment on above: Performed By: #### R ENAL, LIPID, LIVER, TSH #### [facility] [address] [address] [address] Eddie Lerner Chloride [Moles/Vol] 102 mmol/L Normal 98-107 [facility] Comment on above: Performed By: #### R ENAL, LIPID, LIVER, TSH #### [facility] [address] [address] [address] Eddie Lerner CO2 [Moles/Vol] 24.8 mmol/L Normal 21.0-32.0 [facility] Comment on above: Performed By: #### R ENAL, LIPID, LIVER, TSH #### [facility] [address] [address] [address] Eddie Lerner Creatinine [Mass/Vol] 2.19 mg/dL Critically high 0.70-1.30 [facility] Comment on above: Performed By: #### R ENAL, LIPID, LIVER, TSH #### [facility] [address] [address] [address] Eddie Lerner EGFR-AF [place]ER 37 mL/min/1.73m2 Critically low >=60 [facility] Comment on above: Performed By: #### R ENAL, LIPID, LIVER, TSH #### [facility] [address] [address] [address] Eddie Lerner EGFR-NON AF [place] 31 mL/min/1.73m2 Critically low >=60 [facility] Comment on above: Performed By: #### R ENAL, LIPID, LIVER, TSH #### [facility] [address] [place] [address] Dr. Eddie Lerner Glucose [Mass/Vol] 330 mg/dL Critically high 74-[address] [facility] Comment on above: Performed By: #### R ENAL, LIPID, LIVER, TSH #### [facility] [address] [address] [address] Eddie eLrner Potassium [Moles/Vol] 5.3 mmol/L Critically high 3.5-5.1 [facility] Comment on above: Performed By: #### R ENAL, LIPID, LIVER, TSH #### [facility] [address] [address] [address] Eddie Lerner Sodium [Moles/Vol] 133 mmol/L Critically low 136-145 [facility] Comment on above: Performed By: #### R ENAL, LIPID, LIVER, TSH #### [facility] [address] [place] [address] Dr. Eddie Lerner Urea nitrogen [Mass/Vol] 25.0 mg/dL Critically high 7.0-18.0 [facility] Comment on above: Performed By: #### R ENAL, LIPID, LIVER, TSH #### [facility] [address] [place] [address] Dr. Eddie Lerner Urea nitrogen/Creatinine [Mass ratio] 11.4 mg/mg Normal [facility] Comment on above: Performed By: #### R ENAL, LIPID, LIVER, TSH #### [facility] [address] [place], [place] [address] Dr. Eddie Lerner Comprehensive Metabolic Pane babatunde 08-01-2021 Albumin [Mass/Vol] 2.8 g/dL Low 3.2-5.5 [facility] Comment on above: Order Comment: REDRA W FOR SHORT DRAW AND HEMOLYSIS Performed By: #### P P #### [facility] [facility] [address] Albumin/Globulin [Mass ratio] 0.7 {ratio} Normal [facility] Comment on above: Order Comment: REDRA W FOR SHORT DRAW AND HEMOLYSIS Performed By: #### P P #### [facility] [address] [place] [id number] [place] ALP [Catalytic activity/Vol] 87 U/L Normal 32-92 [facility] Comment on above: Order Comment: REDRA W FOR SHORT DRAW AND HEMOLYSIS Performed By: #### P P #### [facility] [address] [place] [id number] [place] ALT [Catalytic activity/Vol] 18 U/L Normal 10-60 [facility] Comment on above: Order Comment: REDRA W FOR SHORT DRAW AND HEMOLYSIS Performed By: #### P P #### [facility] [address] [place], [place] [id number] [place] AST [Catalytic activity/Vol] 20 U/L Normal 10-42 [facility] Comment on above: Order Comment: REDRA W FOR SHORT DRAW AND HEMOLYSIS Performed By: #### P P #### [facility] [address] [place] [id number] [place] Bilirubin [Mass/Vol] 0.6 mg/dL Normal 0.3-1.2 [facility] Comment on above: Order Comment: REDRA W FOR SHORT DRAW AND HEMOLYSIS Performed By: #### P P #### [facility] [address] [place] [id number] [place] Calcium [Mass/Vol] 8.9 mg/dL Normal 8.2-10.2 [facility] Comment on above: Order Comment: REDRA W FOR SHORT DRAW AND HEMOLYSIS Performed By: #### P P #### [address] Chloride [Moles/Vol] 103 mmol/L Normal 95-114 [facility] Comment on above: Order Comment: REDRA W FOR SHORT DRAW AND HEMOLYSIS Performed By: #### P P #### [address] CO2 [Moles/Vol] 24.7 mmol/L Normal 22.0-30.0 [facility] Comment on above: Order Comment: REDRA W FOR SHORT DRAW AND HEMOLYSIS Performed By: #### P P #### [address] Creatinine [Mass/Vol] 2.34 mg/dL High 0.64-1.27 [facility] Comment on above: Order Comment: REDRA W FOR SHORT DRAW AND HEMOLYSIS Performed By: #### P P #### [address] Estimated GFR ( Camilla 34 [facility] Comment on above: Order Comment: REDRA W FOR SHORT DRAW AND HEMOLYSIS Result Comment: GFR estimated reference range: According to KDOQI guidelines, <60 ml/min/1.73m2 is sufficient to diagnose a patient with chronic kidney disease. Performed By: #### P P #### [address] Estimated GFR (Non- Am 28 [facility] Comment on above: Order Comment: REDRA W FOR SHORT DRAW AND HEMOLYSIS Performed By: #### P P #### [place] [address] [place] Globulin (S) [Mass/Vol] 3.9 g/dL [facility] Comment on above: Order Comment: REDRA W FOR SHORT DRAW AND HEMOLYSIS Performed By: #### P P #### [address] Glucose [Mass/Vol] 171 mg/dL High 70-100 [facility] Comment on above: Order Comment: REDRA W FOR SHORT DRAW AND HEMOLYSIS Result Comment: [place] Glucose Reference Range is dependent on time and content of last meal. Glucose of more than 200 mg/dL in a nonstressed, ambulatory subject supports the diagnosis of Diabetes Mellitus. ADA recommended reference range Performed By: #### P P #### [address] Potassium [Moles/Vol] 4.0 mmol/L Normal 3.5-5.1 [facility] Comment on above: Order Comment: REDRA W FOR SHORT DRAW AND HEMOLYSIS Performed By: #### P P #### [address] Protein [Mass/Vol] 6.7 g/dL Normal 6.1-7.9 [facility] Comment on above: Order Comment: REDRA W FOR SHORT DRAW AND HEMOLYSIS Performed By: #### P P #### [address] Sodium [Moles/Vol] 138 mmol/L Normal 136-146 [facility] Comment on above: Order Comment: REDRA W FOR SHORT DRAW AND HEMOLYSIS Performed By: #### P P #### [address] Urea nitrogen [Mass/Vol] 18 mg/dL Normal 9-23 [facility] Comment on above: Order Comment: REDRA W FOR SHORT DRAW AND HEMOLYSIS Performed By: #### P P #### [address] Ferritinon 08-01-2021 Ferritin [Mass/Vol] 151.9 ng/mL Normal 23.9-336.2 [facility] Comment on above: Order Comment: Reaso n for Exam CKD (chronic kidney disease) stage 4, GFR 15-29 ml/min;Diabe Performed By: #### C MP, CBC, MG, TROP, BNP #### [address] Hemogram CBC Without Diffon 08-01-2021 Erythrocyte distribution width (RBC) [Ratio] 15.9 % High 12.0-14.8 [facility] Comment on above: Order Comment: REDRA W FOR SHORT DRAW AND HEMOLYSIS Performed By: #### P P #### [address] Hematocrit (Bld) [Volume fraction] 38.9 % Normal 38.8-50.0 [facility] Comment on above: Order Comment: REDRA W FOR SHORT DRAW AND HEMOLYSIS Performed By: #### P P #### [address] Hemoglobin (Bld) [Mass/Vol] 12.9 g/dL Low 13.0-17.0 [facility] Comment on above: Order Comment: REDRA W FOR SHORT DRAW AND HEMOLYSIS Performed By: #### P P #### [address] MCH (RBC) [Entitic mass] 28.4 pg Normal 27.5-35.2 [facility] Comment on above: Order Comment: REDRA W FOR SHORT DRAW AND HEMOLYSIS Performed By: #### P P #### [address] MCV (RBC) [Entitic vol] 85.7 fL Normal 83.5-101 [facility] Comment on above: Order Comment: REDRA W FOR SHORT DRAW AND HEMOLYSIS Performed By: #### P P #### [address] Mean Corpuscular HGB Conc 33.1 g/dL Normal 32.5-35.6 [facility] Comment on above: Order Comment: REDRA W FOR SHORT DRAW AND HEMOLYSIS Performed By: #### P P #### [address] Platelet mean volume (Bld) [Entitic vol] 7.8 fL Normal 6.6-10.1 [facility] Comment on above: Order Comment: REDRA W FOR SHORT DRAW AND HEMOLYSIS Result Comment: PERF ORMED BY: [place] [address] PATHOLOGIST [employer] MAKER JORDAN RODRIGUEZ M.D. Performed By: #### P P #### [address] Platelets (Bld) [#/Vol] 352 10*3/uL Normal 150-450 [facility] Comment on above: Order Comment: REDRA W FOR SHORT DRAW AND HEMOLYSIS Performed By: #### P P #### [address] RBC (Bld) [#/Vol] 4.54 10*6/uL Normal 3.90-5.60 [facility] Comment on above: Order Comment: REDRA W FOR SHORT DRAW AND HEMOLYSIS Performed By: #### P P #### [address] WBC (Bld) [#/Vol] 9.1 10*3/uL Normal 4.1-10.5 [facility] Comment on above: Order Comment: REDRA W FOR SHORT DRAW AND HEMOLYSIS Performed By: #### P P #### [address] Iron and TIBC Profileon 04-0 5-2022 % Iron Saturation 24.0 % Normal 20-50 [facility] Comment on above: Order Comment: REDRA W FOR SHORT DRAW AND HEMOLYSIS Performed By: #### P P #### [address] Iron [Mass/Vol] 47 ug/dL Normal 40-160 [facility] Comment on above: Order Comment: REDRA W FOR SHORT DRAW AND HEMOLYSIS Performed By: #### P P #### [address] Total Iron Binding Capacity 192 ug/dL Low 255-450 [facility] Comment on above: Order Comment: REDRA W FOR SHORT DRAW AND HEMOLYSIS Performed By: #### P P #### [address] Transferrin [Mass/Vol] 137 mg/dL Low 180-380 [facility] Comment on above: Order Comment: REDRA W FOR SHORT DRAW AND HEMOLYSIS Performed By: #### P P #### [address] Magnesiumon 08-01-2021 Magnesium [Mass/Vol] 2.2 mg/dL Normal 1.6-2.6 [facility] Comment on above: Order Comment: REDRA W FOR SHORT DRAW AND HEMOLYSIS Performed By: #### P P #### [address] Parathyroid Hormone Intacton 08-01-2021 Parathyroid Hormone Intact 31.2 pg/mL Normal 12-88 [facility] Comment on above: Order Comment: Reaso n for Exam CKD (chronic kidney disease) stage 4, GFR 15-29 ml/min;Diabe Result Comment: PERF ORMED BY: [place] [address] PATHOLOGIST [employer] JORDAN RODRIGUEZ M.D. Performed By: #### C MP, CBC, MG, TROP, BNP #### [address] Uric Acidon 08-01-2021 Urate [Mass/Vol] 8.4 mg/dL High 2.6-7.2 [facility] Comment on above: Order Comment: REDRA W FOR SHORT DRAW AND HEMOLYSIS Performed By: #### P P #### [address] Vitamin D 25 Hydroxy Totalon 08-01-2021 Vitamin D 25 Hydroxy Total 28.2 ng/mL Low 30-100 [facility] Comment on above: Order Comment: Reaso [...] C MP, CBC, MG, TROP, BNP #### [address] Complete Pulmonary Functiono n 09-28-2020 Complete Pulmonary Function [facility] Main [place] [address] [place] [id number] Pulmonary Function Signed Patient: Rashard Lyman MR#: [id number] : 1960 Acct:[id number] Age/Sex: 60 / M ADM Date: 09/28/20 Loc: RT Room: Type: [facility] Attending Dr: USMAN Stover APRN Ordering Provider: [...] to 2.21 L or 50% predicted. The BZX91-09% is reduced at 1.92 L/sec or 54% predicted. After administration of bronchodilators, there is an insignificant 5% improvement in the forced vital capacity and 5% improvement in the FEV1. The QLQ49-29% improves insignificantly by 10%. LUNG VOLUMES: Lung [...] adequate pulmonary function studies reveal evidence of [id number] restriction without clear evidence of obstruction nor [...] MD 09/28/20 1305 Signed By: 09/28/20 1505 [facility] echo limited [facility] echo [facility] [place] [address] Echocardiogram Signed Patient: Rashard Lyman MR#: [id number] : 1960 Acct:[id number] Age/Sex: 60 / M ADM Date: 09/06/20 Loc: Room: Type: [facility] Attending Dr: Gautam Bazan MD Ordering Provider: Gautam Bazan MD Date of Service: 09/06/20 [facility] echo limited: re assess pericardial effusions Copies to: Nancy Jackson MD, [facility] Gautam Bazan MD Weight: 354 lb Performed [...] 57.4 ml EF(Teich): 51.3 % Transcribed By: [facility] 09/06/20 162 Dictated By: Nancy Jackson MD, FACC 09/06/20 1232 Signed By: 09/06/201625 [facility] Albumin [Mass/volume] in Ser um or Plasmaon 08-25-2020 Albumin [Mass/Vol] 2.0 g/dL 3.2-5.5 [facility] Basophils Auto (Bld) [#/Vol] on 08-25-2020 Basophils (Bld) [#/Vol] 0.0 10*3/uL 0.0-0.2 [facility] Basophils/100 WBC Auto (Bld) on 08-25-2020 Basophils/100 WBC (Bld) 0.1 % [facility] Blood anisocytosis detection on 08-25-2020 Anisocytosis Ql (Bld) Slight [facility] Blood hemoglobin measurement (mass/volume)on 08-25-2020 Hemoglobin (Bld) [Mass/Vol] 10.1 g/dL 13.0-17.0 [facility] Blood leukocytes automated c ount (number/volume)on 08-25-2020 WBC (Bld) [#/Vol] 12.6 10*3/uL 4.5-11.0 [facility] Blood polychromasia detectio n by light microscopyon 08-25-2020 Polychromasia LM Ql (Bld) Slight [facility] Creatinine and Glomerular fi ltration rate.predicted panel (S/P/Bld)on 08-25-2020 Creatinine [Mass/Vol] 4.06 mg/dL 0.64-1.27 [facility] ECG 12 lead ECGon 08-25-2020 ECG 12 lead ECG [facility] [place] [address] Electrocardiograph Report Signed Patient: Rashard Lyman MR#: [id number] : 1960 Acct:[id number] Age/Sex: 60 / M ADM Date: 08/18/20 Loc: Room: [address] [place] [address] Type: ADM IN Attending Dr: Gordon Ewing [...] 08/25/20 0719 Signed By: 08/25/20 0951 Normal [facility] Eosinophils Auto (Bld) [#/Vo l]on 08-25-2020 Eosinophils (Bld) [#/Vol] 0.0 10*3/uL 0.0-0.45 [facility] Eosinophils/100 WBC Auto (Bl d)on 08-25-2020 Eosinophils/100 WBC (Bld) 0.1 % [facility] Erythrocyte distribution wid th Auto (RBC) [Ratio]on 08-25-2020 Erythrocyte distribution width (RBC) [Ratio] 16.6 % 12.0-14.8 [facility] Estimated glomerular filtrat ion rate (GFR) non- Americanon 08-25-2020 GFR/1.73 sq M.predicted among non-blacks MDRD (S/P/Bld) [Vol rate/Area] 15 mL/Min [facility] Glucose Glucometer (BldC) [M ass/Vol]on 08-25-2020 Glucose [Mass/Vol] 122 mg/dL [facility] Comment on above: Random Glucose Refer ence Range is dependent on time and content of last meal. Glucose of more than 200 mg/dL in a nonstressed, ambulatory subject supports the diagnosis of Diabetes Mellitus. Glucose Poct Glucometerson 0 08-25-2020 Commemt1 Glu2: Cleaned Meter Normal [facility] Comment on above: Result Comment: PERF ORMED BY: [place] [address] PATHOLOGIST METER MAKER JORDAN RODRIGUEZ M.D. Performed By: #### P P #### [address] Glucose [Mass/Vol] 122 mg/dL Normal [facility] Comment on above: Result Comment: [place] om Glucose Reference Range is dependent on time and content of last meal. Glucose of more than 200 mg/dL in a nonstressed, ambulatory subject supports the diagnosis of Diabetes Mellitus. Performed By: #### P P #### [address] Commemt1 Glu2: Cleaned Meter Normal [facility] Comment on above: Result Comment: PERF ORMED BY: [place] [address] PATHOLOGIST METER MAKER JORDAN RODRIGUEZ M.D. Performed By: #### V BG #### Point of Care testing , Glucose [Mass/Vol] 104 mg/dL Normal [facility] Comment on above: Result Comment: [place] om Glucose Reference Range is dependent on time and content of last meal. Glucose of more than 200 mg/dL in a nonstressed, ambulatory subject supports the diagnosis of Diabetes Mellitus. Performed By: #### V BG #### Point of Care testing , Glucose [Mass/Vol] 115 mg/dL Normal [facility] Comment on above: Result Comment: [place] om Glucose Reference Range is dependent on time and content of last meal. Glucose of more than 200 mg/dL in a nonstressed, ambulatory subject supports the diagnosis of Diabetes Mellitus. PERFORMED BY: [place] [address] PATHOLOGIST METER MAKER JORDAN RODRIGUEZ M.D. Performed By: #### V BG #### Point of Care testing , Hematocrit Auto (Bld) [Volum e fraction]on 08-25-2020 Hematocrit (Bld) [Volume fraction] 31.7 % 38.8-50.0 [facility] Laboratory - Hematology and Cell countson 08-25-2020 Nucleated RBC/100 WBC (Bld) [Ratio] 0.2 % 0-0.5 [facility] Lymphocytes Auto (Bld) [#/Vo l]on 08-25-2020 Lymphocytes (Bld) [#/Vol] 1.1 10*3/uL 1.00-4.8 [facility] Lymphocytes/100 WBC Auto (Bl d)on 08-25-2020 Lymphocytes/100 WBC (Bld) 8.9 % [facility] MCH Auto (RBC) [Entitic mass ]on 08-25-2020 MCH (RBC) [Entitic mass] 26.2 pg 27.5-35.2 [facility] MCHC Auto (RBC) [Mass/Vol]on 08-25-2020 MCHC (RBC) [Mass/Vol] 31.9 g/dL 32.5-35.6 [facility] MCV Auto (RBC) [Entitic vol] on 08-25-2020 MCV (RBC) [Entitic vol] 82.3 fL 83.5-101 [facility] Monocytes Auto (Bld) [#/Vol] on 08-25-2020 Monocytes (Bld) [#/Vol] 1.2 10*3/uL 0.0-0.8 [facility] Monocytes/100 WBC Auto (Bld) on 08-25-2020 Monocytes/100 WBC (Bld) 9.6 % [facility] Neutrophils Auto (Bld) [#/Vo l]on 08-25-2020 Neutrophils (Bld) [#/Vol] 10.2 10*3/uL 1.8-7.7 [facility] Neutrophils/100 WBC Auto (Bl d)on 08-25-2020 Neutrophils/100 WBC (Bld) 81.3 % [facility] No Panel Informationon 08-25 Bedside Glucose Comment Glu2: cleaned meter [facility] Estimated GFR () 18 mL/Min [facility] Comment on above: GFR estimated refere nce range: According to KDOQI guidelines, <60 ml/min/1.73m2 is sufficient to diagnose a patient with chronic kidney disease. Pharmacy Creatinine Clearance (Chem 31.84 [facility] Platelet Estimate Normal Normal [facility] Platelet Morphology Comment Normal Normal [facility] Phosphate [Mass/volume] in S miki or Plasmaon 08-25-2020 Phosphate [Mass/Vol] 5.3 mg/dL 2.5-4.6 [facility] Platelet mean volume Auto (B ld) [Entitic vol]on 08-25-2020 Platelet mean volume (Bld) [Entitic vol] 7.1 fL 6.6-10.1 [facility] Platelets Auto (Bld) [#/Vol] on 08-25-2020 Platelets (Bld) [#/Vol] 388 10*3/uL 150-450 [facility] RBC Auto (Bld) [#/Vol]on RBC (Bld) [#/Vol] 3.85 10*6/uL 3.90-5.60 [facility] RBC morphologyon 08-25-2020 RBC morphology finding Nom (Bld) N/A [facility] Renal Function Panelon 08-25 Albumin [Mass/Vol] 2.0 g/dL Low 3.2-5.5 [facility] Comment on above: Performed By: #### V BG #### Point of Care testing , Calcium [Mass/Vol] 8.7 mg/dL Normal 8.2-10.2 [facility] Comment on above: Performed By: #### V BG #### Point of Care testing , Chloride [Moles/Vol] 99 mmol/L Normal 95-114 [facility] Comment on above: Performed By: #### V BG #### Point of Care testing , CO2 [Moles/Vol] 26.2 mmol/L Normal 22.0-30.0 [facility] Comment on above: Performed By: #### V BG #### Point of Care testing , Creatinine [Mass/Vol] 4.06 mg/dL High 0.64-1.27 [facility] Comment on above: Performed By: #### V BG #### Point of Care testing , Creatinine Clr Calc Pharmacy 31.84 [facility] Comment on above: Result Comment: PERF ORMED BY: [facility] [address] [place] [address] PATHOLOGIST METER MAKER JORDAN RODRIGUEZ M.D. Performed By: #### V BG #### Point of Care testing , Estimated GFR ( Camilla 18 Normal [facility] Comment on above: Result Comment: GFR estimated reference range: According to KDOQI guidelines, <60 ml/min/1.73m2 is sufficient to diagnose a patient with chronic kidney disease. Performed By: #### V BG #### Point of Care testing , Estimated GFR (Non- Am 15 Normal [facility] Comment on above: Performed By: #### V BG #### Point of Care testing , Glucose [Mass/Vol] 113 mg/dL High 70-100 [facility] Comment on above: Result Comment: [place] Glucose Reference Range is dependent on time and content of last meal. Glucose of more than 200 mg/dL in a nonstressed, ambulatory subject supports the diagnosis of Diabetes Mellitus. ADA recommended reference range Performed By: #### V BG #### Point of Care testing , Phosphate [Mass/Vol] 5.3 mg/dL High 2.5-4.6 [facility] Comment on above: Performed By: #### V BG #### Point of Care testing , Potassium [Moles/Vol] 4.6 mmol/L Normal 3.5-5.1 [facility] Comment on above: Performed By: #### V BG #### Point of Care testing , Sodium [Moles/Vol] 135 mmol/L Low 136-146 [facility] Comment on above: Performed By: #### V BG #### Point of Care testing , Urea nitrogen [Mass/Vol] 75 mg/dL High 9-23 [facility] Comment on above: Performed By: #### V BG #### Point of Care testing , Scan and CBCon 08-25-2020 Anisocytosis Ql (Bld) Slight Normal [facility] Comment on above: Performed By: #### V BG #### Point of Care testing , Basophils (Bld) [#/Vol] 0.0 10*3/uL Normal 0.0-0.2 [facility] Comment on above: Performed By: #### V BG #### Point of Care testing , Basophils/100 WBC (Bld) 0.1 % Normal . [facility] Comment on above: Performed By: #### V BG #### Point of Care testing , Eosinophils (Bld) [#/Vol] 0.0 10*3/uL Normal 0.0-0.45 [facility] Comment on above: Performed By: #### V BG #### Point of Care testing , Eosinophils/100 WBC (Bld) 0.1 % Normal . [facility] Comment on above: Performed By: #### V BG #### Point of Care testing , Erythrocyte distribution width (RBC) [Ratio] 16.6 % High 12.0-14.8 [facility] Comment on above: Performed By: #### V BG #### Point of Care testing , Hematocrit (Bld) [Volume fraction] 31.7 % Low 38.8-50.0 [facility] Comment on above: Performed By: #### V BG #### Point of Care testing , Hemoglobin (Bld) [Mass/Vol] 10.1 g/dL Low 13.0-17.0 [facility] Comment on above: Performed By: #### V BG #### Point of Care testing , Lymphocytes (Bld) [#/Vol] 1.1 10*3/uL Normal 1.00-4.8 [facility] Comment on above: Performed By: #### V BG #### Point of Care testing , Lymphocytes/100 WBC (Bld) 8.9 % Normal . [facility] Comment on above: Performed By: #### V BG #### Point of Care testing , MCH (RBC) [Entitic mass] 26.2 pg Low 27.5-35.2 [facility] Comment on above: Performed By: #### V BG #### Point of Care testing , MCV (RBC) [Entitic vol] 82.3 fL Low 83.5-101 [facility] Comment on above: Performed By: #### V BG #### Point of Care testing , Mean Corpuscular HGB Conc 31.9 g/dL Low 32.5-35.6 [facility] Comment on above: Performed By: #### V BG #### Point of Care testing , Monocytes (Bld) [#/Vol] 1.2 10*3/uL High 0.0-0.8 [facility] Comment on above: Performed By: #### V BG #### Point of Care testing , Monocytes/100 WBC (Bld) 9.6 % Normal . [facility] Comment on above: Performed By: #### V BG #### Point of Care testing , Neutrophils (Bld) [#/Vol] 10.2 10*3/uL High 1.8-7.7 [facility] Comment on above: Performed By: #### V BG #### Point of Care testing , Neutrophils/100 WBC (Bld) 81.3 % Normal . [facility] Comment on above: Performed By: #### V BG #### Point of Care testing , Nucleated RBC/100 WBC (Bld) [Ratio] 0.2 % Normal 0-0.5 [facility] Comment on above: Performed By: #### V BG #### Point of Care testing , Platelet Estimate Normal Normal Normal [facility] Comment on above: Performed By: #### V BG #### Point of Care testing , Platelet mean volume (Bld) [Entitic vol] 7.1 fL Normal 6.6-10.1 [facility] Comment on above: Performed By: #### V BG #### Point of Care testing , Platelet Morphology Normal Normal Normal [facility] Comment on above: Result Comment: PERF ORMED BY: [facility] [address] [place] [address] PATHOLOGIST METER MAKER JORDAN RODRIGUEZ M.D. Performed By: #### V BG #### Point of Care testing , Platelets (Bld) [#/Vol] 388 10*3/uL Normal 150-450 [facility] Comment on above: Performed By: #### V BG #### Point of Care testing , Polychromasia Slight Normal [facility] Comment on above: Performed By: #### V BG #### Point of Care testing , RBC (Bld) [#/Vol] 3.85 10*6/uL Low 3.90-5.60 [facility] Comment on above: Performed By: #### V BG #### Point of Care testing , WBC (Bld) [#/Vol] 12.6 10*3/uL High 4.5-11.0 [facility] Comment on above: Performed By: #### V BG #### Point of Care testing , Serum or plasma calcium joel urement (mass/volume)on 08-25-2020 Calcium [Mass/Vol] 8.7 mg/dL 8.2-10.2 [facility] Serum or plasma chloride faraz surement (moles/volume)on 08-25-2020 Chloride [Moles/Vol] 99 mmol/L 95-114 [facility] Serum or plasma glucose joel urement (mass/volume)on 08-25-2020 Glucose [Mass/Vol] 113 mg/dL 70-100 [facility] Comment on above: ADA recommended refe rence rangeRandom Glucose Reference Range is dependent on time and content of last meal. Glucose of more than 200 mg/dL in a nonstressed, ambulatory subject supports the diagnosis of Diabetes Mellitus. Serum or plasma potassium me asurement (moles/volume)on 08-25-2020 Potassium [Moles/Vol] 4.6 mmol/L 3.5-5.1 [facility] Serum or plasma sodium measu rement (moles/volume)on 08-25-2020 Sodium [Moles/Vol] 135 mmol/L 136-146 [facility] Serum or plasma total carbon dioxide measurement (moles/volume)on 08-25-2020 CO2 [Moles/Vol] 26.2 mmol/L 22.0-30.0 [facility] Serum or plasma urea nitroge n measurement (mass/volume)on 08-25-2020 Urea nitrogen [Mass/Vol] 75 mg/dL 9 [facility] Diff and CBCon 08-24-2020 Anisocytosis Ql (Bld) Slight Normal [facility] Comment on above: Performed By: #### C OVID-19 LIAT SOFIANEG #### [facility] [address] Band form neutrophils/100 WBC (Bld) 1 % Normal 0-5 [facility] [facility] Comment on above: Performed By: #### C OVID-19 LIAT SOFIANEG #### [facility] [address] [place] [address] [place] Basophilic stippling LM Ql (Bld) Slight Normal [facility] Comment on above: Performed By: #### C OVID-19 LIAT, SOFIANEG #### [facility] [address] [place] [address] Erythrocyte distribution width (RBC) [Ratio] 16.6 % High 12.0-14.8 [facility] Comment on above: Performed By: #### C OVID-19 LIAT, SOFIANEG #### [address] Hematocrit (Bld) [Volume fraction] 30.0 % Low 38.8-50.0 [facility] Comment on above: Performed By: #### C OVID-19 LIAT, SOFIANEG #### [address] Hemoglobin (Bld) [Mass/Vol] 10.1 g/dL Low 13.0-17.0 [facility] Comment on above: Performed By: #### C OVID-19 LIAT, SOFIANEG #### [address] Lymphocytes/100 WBC (Bld) 6 % Low 18-42 [facility] Comment on above: Performed By: #### C OVID-19 LIAT, SOFIANEG #### [address] MCH (RBC) [Entitic mass] 27.5 pg Normal 27.5-35.2 [facility] Comment on above: Performed By: #### C OVID-19 LIAT, SOFIANEG #### [facility] [address] [place] [address] MCV (RBC) [Entitic vol] 81.9 fL Low 83.5-101 [facility] Comment on above: Performed By: #### C OVID-19 LIAT, SOFIANEG #### [facility] [address] [place] [address] Mean Corpuscular HGB Conc 33.6 g/dL Normal 32.5-35.6 [facility] Comment on above: Performed By: #### C OVID-19 LIAT, SOFIANEG #### [facility] [address] [place] [address] [place] Metamyelocytes 1 % High 0-0 [facility] Comment on above: Performed By: #### C OVID-19 LIAT, SOFIANEG #### [facility] [address] [place] [address] [place] Monocytes/100 WBC (Bld) 4 % Normal 2-11 [facility] Comment on above: Performed By: #### C OVID-19 LIAT, SOFIANEG #### [facility] [address] [place] [address] Myelocytes 1 % High 0-0 [facility] Comment on above: Performed By: #### C OVID-19 LIAT, SOFIANEG #### [facility] [address] [place] [address] Nucleated RBC/100 WBC (Bld) [Ratio] 0.0 % Normal 0-0.5 [facility] Comment on above: Result Comment: PERF ORMED BY: [place] [address] PATHOLOGIST METER MAKER JORDAN RODRIGUEZ M.D. Performed By: #### C OVID-19 LIAT, SOFIANEG #### [facility] [address] [place] [address] Platelet Estimate Normal Normal Normal [facility] Comment on above: Performed By: #### C OVID-19 LIAT, SOFIANEG #### [facility] [address] [place] [address] [place] Platelet mean volume (Bld) [Entitic vol] 7.0 fL Normal 6.6-10.1 [facility] Comment on above: Performed By: #### C OVID-19 LIAT, SOFIANEG #### [facility] [address] [place] [address] [place] Platelet Morphology Normal Normal Normal [facility] Comment on above: Result Comment: PERF ORMED BY: [place] [address] PATHOLOGIST METER MAKER JIANLAN SUN M.D. Performed By: #### C OVID-19 LIAT, SOFIANEG #### [facility] [address] [place] [address] [place] Platelets (Bld) [#/Vol] 359 10*3/uL Normal 150-450 [facility] Comment on above: Performed By: #### C OVID-19 LIAT, SOFIANEG #### [facility] [address] [place] [address] [place] Polychromasia Slight Normal [facility] Comment on above: Performed By: #### C OVID-19 LIAT, SOFIANEG #### [facility] [address] RBC (Bld) [#/Vol] 3.66 10*6/uL Low 3.90-5.60 [facility] Comment on above: Performed By: #### C OVID-19 LIAT, SOFIANEG #### [facility] [address] [place] [address] [place] Rouleaux Slight Normal [facility] Comment on above: Performed By: #### C OVID-19 LIAT, SOFIANEG #### [facility] [address] [place] [address] Segmented neutrophils/100 WBC (Bld) 87 % High 50-70 [facility] Comment on above: Performed By: #### C OVID-19 LIAT, SOFIANEG #### [facility] [address] [place] [address] [place] WBC (Bld) [#/Vol] 11.2 10*3/uL High 4.5-11.0 [facility] Comment on above: Performed By: #### C OVID-19 LIAT, SOFIANEG #### [facility] [address] [place] [address] ECG 12 lead ECGon 08-24-2020 ECG 12 lead ECG [facility] [place] [address] [place] [address] Electrocardiograph Report Signed Patient: Rashard Lyman MR#: [id number] : 1960 Acct:[id number] Age/Sex: 60 / M ADM Date: 08/18/20 Loc: 3T Room: [address] [place] [address] Type: ADM IN Attending Dr: Gordon Ewing [...] MD 08/24/20 0743 Signed By: 08/24/20 1049 [facility] Erythrocyte basophilic stipp ling detectionon 08-24-2020 Basophilic stippling LM Ql (Bld) Slight [facility] Glucose Poct Glucometerson 0 08-24-2020 Glucose [Mass/Vol] 129 mg/dL [facility] Comment on above: Result Comment: [place] Glucose Reference Range is dependent on time and content of last meal. Glucose of more than 200 mg/dL in a nonstressed, ambulatory subject supports the diagnosis of Diabetes Mellitus. PERFORMED BY: [address] [place] [address] PATHOLOGIST METER MAKER JORDAN RODRIGUEZ M.D. Performed By: #### V BG #### Point of Care testing , Commemt1 Glu2: Cleaned Meter Normal [facility] Comment on above: Result Comment: PERF ORMED BY: [address] [place] [address] PATHOLOGIST METER MAKER JORDAN RODRIGUEZ M.D. Performed By: #### V BG #### Point of Care testing , Glucose [Mass/Vol] 108 mg/dL Normal [facility] Comment on above: Result Comment: [place] Glucose Reference Range is dependent on time and content of last meal. Glucose of more than 200 mg/dL in a nonstressed, ambulatory subject supports the diagnosis of Diabetes Mellitus. Performed By: #### V BG #### Point of Care testing , Glucose [Mass/Vol] 60 mg/dL Off scale low [facility] Comment on above: Result Comment: [place] Glucose Reference Range is dependent on time and content of last meal. Glucose of more than 200 mg/dL in a nonstressed, ambulatory subject supports the diagnosis of Diabetes Mellitus. PERFORMED BY: [place] [address] PATHOLOGIST METER MAKER JORDAN RODRIGUEZ M.D. Performed By: #### V BG #### Point of Care testing , Glucose [Mass/Vol] 130 mg/dL Normal [facility] Comment on above: Result Comment: [facility] Glucose Reference Range is dependent on time and content of last meal. Glucose of more than 200 mg/dL in a nonstressed, ambulatory subject supports the diagnosis of Diabetes Mellitus. PERFORMED BY: [place] [address] PATHOLOGIST METER MAKER JORDAN RODRIGUEZ M.D. Performed By: #### V BG #### Point of Care testing , Glucose [Mass/Vol] 72 mg/dL Normal [facility] Comment on above: Result Comment: [facility] Glucose Reference Range is dependent on time and content of last meal. Glucose of more than 200 mg/dL in a nonstressed, ambulatory subject supports the diagnosis of Diabetes Mellitus. PERFORMED BY: [place] [phone] PATHOLOGIST METER MAKER JORDAN RODRIGUEZ M.D. Performed By: #### C OVID-19 DELGADO JOSUE #### [address] Glucose [Mass/Vol] 96 mg/dL Normal [facility] Comment on above: Result Comment: [place] Glucose Reference Range is dependent on time and content of last meal. Glucose of more than 200 mg/dL in a nonstressed, ambulatory subject supports the diagnosis of Diabetes Mellitus. PERFORMED BY: [place] [address] PATHOLOGIST METER MAKER JORDAN RODRIGUEZ M.D. Performed By: #### C OVID-19 LIAT SOFIANEG #### [address] Laboratory - Hematology and Cell countson 08-24-2020 Band form neutrophils/100 WBC (Bld) 1 % 0-5 [facility] Lymphocytes/100 WBC Auto (Bl d)on 08-24-2020 Lymphocytes/100 WBC (Bld) 6 % 18-42 [facility] Metamyelocytes/100 WBC Manua l cnt (Bld)on 08-24-2020 Metamyelocytes/100 WBC (Bld) 1 % 0-0 [facility] Monocytes/100 WBC Manual cnt (Bld)on 08-24-2020 Monocytes/100 WBC (Bld) 4 % 2-11 [facility] Myelocytes/100 WBC Manual cn t (Bld)on 08-24-2020 Myelocytes/100 WBC (Bld) 1 % 0-0 [facility] No Panel Informationon 08-24 Rouleau Slight [facility] Renal Function Panelon 08-24 Albumin [Mass/Vol] 1.9 g/dL Low 3.2-5.5 [facility] Comment on above: Performed By: #### C OVID-19 LIAT SOFIANEG #### [address] Calcium [Mass/Vol] 8.8 mg/dL Normal 8.2-10.2 [facility] Comment on above: Performed By: #### C OVID-19 LIAT SOFIANEG #### [address] Chloride [Moles/Vol] 99 mmol/L Normal 95-114 [facility] Comment on above: Performed By: #### C OVID-19 LIAT SOFIANEG #### [address] [place] [address] [place] CO2 [Moles/Vol] 24.4 mmol/L Normal 22.0-30.0 [facility] Comment on above: Performed By: #### C OVID-19 LIAT, SOFIANEG #### [facility] [address] Creatinine [Mass/Vol] 4.21 mg/dL High 0.64-1.27 [facility] Comment on above: Performed By: #### C OVID-19 LIAT, SOFIANEG #### [facility] [address] [place] [address] [place] Creatinine Clr Calc Pharmacy 30.71 [facility] Comment on above: Result Comment: PERF ORMED BY: [place] [address] PATHOLOGIST METER MAKER JORDAN RODRIGUEZ M.D. Performed By: #### C OVID-19 LIAT, SOFIANEG #### [address] Estimated GFR ( Camilla 18 [facility] Comment on above: Result Comment: GFR estimated reference range: According to KDOQI guidelines, <60 ml/min/1.73m2 is sufficient to diagnose a patient with chronic kidney disease. Performed By: #### C OVID-19 LIAT, SOFIANEG #### [facility] [address] [place] [address] Estimated GFR (Non- Am 15 [facility] Comment on above: Performed By: #### C OVID-19 LIAT, SOFIANEG #### [facility] [address] [place] [address] [place] Glucose [Mass/Vol] 79 mg/dL Normal 70-100 [facility] Comment on above: Result Comment: [place] Glucose Reference Range is dependent on time and content of last meal. Glucose of more than 200 mg/dL in a nonstressed, ambulatory subject supports the diagnosis of Diabetes Mellitus. ADA recommended reference range Performed By: #### C OVID-19 LIAT, SOFIANEG #### [facility] [address] [place] [address] Phosphate [Mass/Vol] 5.9 mg/dL High 2.5-4.6 [facility] Comment on above: Performed By: #### C OVID-19 LIAT, SOFIANEG #### [facility] [address] Potassium [Moles/Vol] 4.2 mmol/L Normal 3.5-5.1 [facility] Comment on above: Performed By: #### C OVID-19 LIAT, SOFIANEG #### [facility] [address] Sodium [Moles/Vol] 134 mmol/L Low 136-146 [facility] Comment on above: Performed By: #### C OVID-19 LIAT, SOFIANEG #### [facility] [address] [place] [address] Urea nitrogen [Mass/Vol] 69 mg/dL High 9-23 [facility] Comment on above: Performed By: #### C OVID-19 LIAT, SOFIANEG #### [facility] [address] [place] [address] [place] Segmented neutrophils/100 WB C Manual cnt (Bld)on 08-24-2020 Segmented neutrophils/100 WBC (Bld) 87 % 50-70 [facility] [place] Antinuclear Antibodieson 08-23-2020 Antinuclear Abs, IFA Negative Normal . [facility] Comment on above: Result Comment: Nega tive <1:80 Borderline 1:80 Positive >1:80 Performed at: - [facility] [id number] Rail Switch Operator: Mata Brian PhD, Phone: [phone] PERFORMED BY: [place] [address] PATHOLOGIST METER MAKER JORDAN RODRIGUEZ M.D. Performed By: #### P P #### [address] Complete Blood Count Auto Di ffon 08-23-2020 Basophils (Bld) [#/Vol] 0.0 10*3/uL Normal 0.0-0.2 [facility] Comment on above: Result Comment: PERF ORMED BY: [place] [address] PATHOLOGIST METER MAKER JORDAN RODRIGUEZ M.D. Performed By: #### C OVID-19 LIAT, SOFIANEG #### [facility] [address] [place] [address] Basophils/100 WBC (Bld) 0.3 % Normal . [facility] Comment on above: Performed By: #### C OVID-19 LIAT, SOFIANEG #### [facility] [address] [place] [address] Eosinophils (Bld) [#/Vol] 0.0 10*3/uL Normal 0.0-0.45 [facility] Comment on above: Performed By: #### C OVID-19 LIAT, SOFIANEG #### [address] Eosinophils/100 WBC (Bld) 0.1 % Normal . [facility] Comment on above: Performed By: #### C OVID-19 LIAT, SOFIANEG #### [facility] [address] [place] [address] Erythrocyte distribution width (RBC) [Ratio] 16.3 % High 12.0-14.8 [facility] Comment on above: Performed By: #### C OVID-19 LIAT, SOFIANEG #### [facility] [address] [place] [address] Hematocrit (Bld) [Volume fraction] 29.4 % Low 38.8-50.0 [facility] Comment on above: Performed By: #### C OVID-19 LIAT, SOFIANEG #### [facility] [address] [place] [address] Hemoglobin (Bld) [Mass/Vol] 9.4 g/dL Low 13.0-17.0 [facility] Comment on above: Performed By: #### C OVID-19 LIAT, SOFIANEG #### [facility] [address] [place] [address] [place] Lymphocytes (Bld) [#/Vol] 0.5 10*3/uL Low 1.00-4.8 [facility] Comment on above: Performed By: #### C OVID-19 LIAT, SOFIANEG #### [facility] [address] [place] [address] Lymphocytes/100 WBC (Bld) 4.1 % Normal . [facility] Comment on above: Performed By: #### C OVID-19 LIAT, SOFIANEG #### [facility] [address] [place] [address] MCH (RBC) [Entitic mass] 26.2 pg Low 27.5-35.2 [facility] Comment on above: Performed By: #### C OVID-19 LIAT, SOFIANEG #### [facility] [address] [place] [address] MCV (RBC) [Entitic vol] 82.4 fL Low 83.5-101 [facility] Comment on above: Performed By: #### C OVID-19 LIAT, SOFIANEG #### [facility] [address] [place] [address] Mean Corpuscular HGB Conc 31.8 g/dL Low 32.5-35.6 [facility] Comment on above: Performed By: #### C OVID-19 ILAT, SOFIANEG #### [address] Monocytes (Bld) [#/Vol] 0.6 10*3/uL Normal 0.0-0.8 [facility] Comment on above: Performed By: #### C OVID-19 LIAT, SOFIANEG #### [facility] [address] [place] [address] Monocytes/100 WBC (Bld) 4.9 % Normal . [facility] Comment on above: Performed By: #### C OVID-19 LIAT, SOFIANEG #### [facility] [address] [place] [address] Neutrophils (Bld) [#/Vol] 11.2 10*3/uL High 1.8-7.7 [facility] Comment on above: Performed By: #### C OVID-19 LIAT, SOFIANEG #### [facility] [address] Neutrophils/100 WBC (Bld) 90.6 % Normal . [facility] Comment on above: Performed By: #### C OVID-19 LIAT, SOFIANEG #### [facility] [address] Nucleated RBC/100 WBC (Bld) [Ratio] 0.2 % Normal 0-0.5 [facility] Comment on above: Performed By: #### C OVID-19 LIAT, SOFIANEG #### [address] Platelet mean volume (Bld) [Entitic vol] 8.0 fL Normal 6.6-10.1 [facility] Comment on above: Performed By: #### C OVID-19 LIAT, SOFIANEG #### [address] Platelets (Bld) [#/Vol] 303 10*3/uL Normal 150-450 [facility] Comment on above: Performed By: #### C OVID-19 LIAT, SOFIANEG #### [place] [address] [place] RBC (Bld) [#/Vol] 3.57 10*6/uL Low 3.90-5.60 [facility] Comment on above: Performed By: #### C OVID-19 LIAT, SOFIANEG #### [address] WBC (Bld) [#/Vol] 12.4 10*3/uL High 4.5-11.0 [facility] Comment on above: Performed By: #### C OVID-19 LIAT, SOFIANEG #### [address] ECG 12 lead ECGon 08-23-2020 ECG 12 lead ECG [facility] Main [place] [address] [place] [address] Electrocardiograph Report Signed Patient: Rashard Lyman MR#: [id number] : 1960 Acct:[id number] Age/Sex: 60 / M ADM Date: 08/18/20 Loc: Room: [address] [place] [address] Type: ADM IN Attending Dr: Gordon Ewing [...] 08/23/20 0730 Signed By: 08/23/20 1047 Normal [facility] Glucose Poct Glucometerson 0 08-23-2020 Glucose [Mass/Vol] 160 mg/dL Normal [facility] Comment on above: Result Comment: [facility] Glucose Reference Range is dependent on time and content of last meal. Glucose of more than 200 mg/dL in a nonstressed, ambulatory subject supports the diagnosis of Diabetes Mellitus. PERFORMED BY: [place] [address] PATHOLOGIST METER MAKER JORDAN RODRIGUEZ M.D. Performed By: #### C OVID-19 DELGADO JOSUE #### [address] Glucose [Mass/Vol] 212 mg/dL Normal [facility] Comment on above: Result Comment: [facility] Glucose Reference Range is dependent on time and content of last meal. Glucose of more than 200 mg/dL in a nonstressed, ambulatory subject supports the diagnosis of Diabetes Mellitus. PERFORMED BY: [place] [address] PATHOLOGIST METER MAKER JORDAN RODRIGUEZ M.D. Performed By: #### C OVID-19 LIAT, SOFIANEG #### [facility] [address] [place] [address] Glucose [Mass/Vol] 159 mg/dL Normal [facility] Comment on above: Result Comment: [place] om Glucose Reference Range is dependent on time and content of last meal. Glucose of more than 200 mg/dL in a nonstressed, ambulatory subject supports the diagnosis of Diabetes Mellitus. PERFORMED BY: [place] [address] PATHOLOGIST METER MAKER JORDAN RODRIGUEZ M.D. Performed By: #### C OVID-19 LIAT, SOFIANEG #### [facility] [address] [place] [address] Glucose [Mass/Vol] 73 mg/dL Normal [facility] Comment on above: Result Comment: [place] om Glucose Reference Range is dependent on time and content of last meal. Glucose of more than 200 mg/dL in a nonstressed, ambulatory subject supports the diagnosis of Diabetes Mellitus. PERFORMED BY: [place] [address] PATHOLOGIST METER MAKER JORDAN RODRIGUEZ M.D. Performed By: #### C OVID-19 LIAT, SOFIANEG #### [facility] [address] [place] [address] [place] Commemt1 Glu2: Cleaned Meter Normal [facility] Comment on above: Result Comment: PERF ORMED BY: [place] [address] PATHOLOGIST METER MAKER JORDAN RODRIGUEZ M.D. Performed By: #### C OVID-19 LIAT, SOFIANEG #### [facility] [address] [place] [address] [place] Glucose [Mass/Vol] 88 mg/dL Normal [facility] Comment on above: Result Comment: [place] om Glucose Reference Range is dependent on time and content of last meal. Glucose of more than 200 mg/dL in a nonstressed, ambulatory subject supports the diagnosis of Diabetes Mellitus. Performed By: #### C OVID-19 LIAT, SOFIANEG #### [facility] [address] [place] [id number] [place] Commemt1 Glu2: Cleaned Meter Normal [facility] Comment on above: Result Comment: PERF ORMED BY: [place] [address] PATHOLOGIST METER MAKER JORDAN RODRIGUEZ M.D. Performed By: #### C OVID-19 LIAT, SOFIANEG #### [address] Glucose [Mass/Vol] 69 mg/dL [facility] Comment on above: Result Comment: [place] om Glucose Reference Range is dependent on time and content of last meal. Glucose of more than 200 mg/dL in a nonstressed, ambulatory subject supports the diagnosis of Diabetes Mellitus. Performed By: #### C OVID-19 LIAT, SOFIANEG #### [facility] [address] [place] [address] [place] Commemt1 [facility] Comment on above: Result Comment: Glu2 : Will Repeat Test Performed By: #### C OVID-19 LIAT, SOFIANEG #### [facility] [address] [place] [address] [place] Commemt2 WILL NOTIFY DR/RN Normal [facility] Comment on above: Performed By: #### C OVID-19 LIAT, SOFIANEG #### [facility] [address] [place], [place] [id number] [place] Commemt3 Cleaned Meter [facility] Comment on above: Result Comment: PERF ORMED BY: [place] [address] PATHOLOGIST METER MAKER JORDAN RODRIGUEZ M.D. Performed By: #### C OVID-19 LIAT, SOFIANEG #### [facility] [address] [place], [place] [id number] [place] Glucose [Mass/Vol] 59 mg/dL Off scale low [facility] Comment on above: Result Comment: [facility] Glucose Reference Range is dependent on time and content of last meal. Glucose of more than 200 mg/dL in a nonstressed, ambulatory subject supports the diagnosis of Diabetes Mellitus. Performed By: #### C OVID-19 LIAT, SOFIANEG #### [facility] [address] No Panel Informationon 08-23 Bedside Glucose #[address]/rn [facility] Bedside Glucose #3 Comment Cleaned meter [facility] Renal Function Panelon 08-23 Albumin [Mass/Vol] 1.9 g/dL Low 3.2-5.5 [facility] Comment on above: Performed By: #### C OVID-19 LIAT, SOFIANEG #### [facility] [address] Calcium [Mass/Vol] 8.7 mg/dL Normal 8.2-10.2 [facility] Comment on above: Performed By: #### C OVID-19 LIAT, SOFIANEG #### [facility] [address] [place] [id number] [place] Chloride [Moles/Vol] 95 mmol/L Normal 95-114 [facility] Comment on above: Performed By: #### C OVID-19 LIAT, SOFIANEG #### [facility] [address] [place] [id number] [place] CO2 [Moles/Vol] 22.0 mmol/L Normal 22.0-30.0 [facility] Comment on above: Performed By: #### C OVID-19 LIAT, SOFIANEG #### [facility] [address] [place] [id number] [place] Creatinine [Mass/Vol] 4.79 mg/dL High 0.64-1.27 [facility] Comment on above: Performed By: #### C OVID-19 LIAT, SOFIANEG #### [facility] [address] [place] [id number] [place] Creatinine Clr Calc Pharmacy 27.33 Normal [facility] Comment on above: Result Comment: PERF ORMED BY: [place] [address] PATHOLOGIST METER MAKER JORDAN RODRIGUEZ M.D. Performed By: #### C OVID-19 LIAT, SOFIANEG #### [facility] [address] [place] [address] [place] Estimated GFR ( Camilla 15 [facility] Comment on above: Result Comment: GFR estimated reference range: According to KDOQI guidelines, <60 ml/min/1.73m2 is sufficient to diagnose a patient with chronic kidney disease. Performed By: #### C OVID-19 LIAT, SOFIANEG #### [address] Estimated GFR (Non- Am 13 [facility] Comment on above: Performed By: #### C OVID-19 LIAT, SOFIANEG #### [facility] [address] [place] [address] Glucose [Mass/Vol] 78 mg/dL Normal 70-100 [facility] Comment on above: Result Comment: [place] om Glucose Reference Range is dependent on time and content of last meal. Glucose of more than 200 mg/dL in a nonstressed, ambulatory subject supports the diagnosis of Diabetes Mellitus. ADA recommended reference range Performed By: #### C OVID-19 LAIT, SOFIANEG #### [facility] [address] [place] [address] [place] Phosphate [Mass/Vol] 7.5 mg/dL High 2.5-4.6 [facility] Comment on above: Performed By: #### C OVID-19 LIAT, SOFIANEG #### [facility] [address] [place] [address] [place] Potassium [Moles/Vol] 4.4 mmol/L Normal 3.5-5.1 [facility] Comment on above: Performed By: #### C OVID-19 LIAT, SOFIANEG #### [facility] [address] [place] [address] [place] Sodium [Moles/Vol] 131 mmol/L Low 136-146 [facility] Comment on above: Performed By: #### C OVID-19 LIAT, SOFIANEG #### [facility] [address] Urea nitrogen [Mass/Vol] 63 mg/dL High - [facility] Comment on above: Performed By: #### C OVID-19 LIAT, SOFIANEG #### [facility] [address] Rheumatoid Factoron 08-24-19 21 Rheumatoid Factor 20.6 High 0.0-13.9 [facility] Comment on above: Result Comment: Perf ormed at: CB - [facility] [place] [address] Rail Switch Operator: Mata Brian PhD, Phone: [phone] Performed By: #### P P #### [facility] [address] Serum nuclear antibody titer on 08-23-2020 Nuclear Ab (S) [Titer] Negative [facility] Comment on above: Negative <1:80 Borde rline 1:80 Positive >1:80Performed at: CB - [facility] [address] [id number] Director: Mata rBian PhD, Phone: [phone] Serum or plasma rheumatoid f actor measurement (units/volume)on 08-23-2020 Rheumatoid factor Qn 20.6 [IU]/mL [facility] Comment on above: Performed at: [facility] [address] [id number] Director: Mata Brian PhD, Phone: [phone] Basic Metabolic Panelon 07-29 Calcium [Mass/Vol] 8.6 mg/dL Normal 8.2-10.2 [facility] Comment on above: Performed By: #### C MP, CBC, MG, TROP, BNP #### [facility] [address] Chloride [Moles/Vol] 94 mmol/L Low 95-114 [facility] Comment on above: Performed By: #### C MP, CBC, MG, TROP, BNP #### [address] CO2 [Moles/Vol] 21.4 mmol/L Low 22.0-30.0 [facility] Comment on above: Performed By: #### C MP, CBC, MG, TROP, BNP #### [address] Creatinine [Mass/Vol] 4.84 mg/dL High 0.64-1.27 [facility] Comment on above: Performed By: #### C MP, CBC, MG, TROP, BNP #### [address] Creatinine Clr Calc Pharmacy 27.02 [facility] Comment on above: Result Comment: PERF ORMED BY: [place] [address] PATHOLOGIST METER MAKER JORDAN RODRIGUEZ M.D. Performed By: #### C MP, CBC, MG, TROP, BNP #### [address] Estimated GFR ( Camilla 15 [facility] Comment on above: Result Comment: GFR estimated reference range: According to KDOQI guidelines, <60 ml/min/1.73m2 is sufficient to diagnose a patient with chronic kidney disease. Performed By: #### C MP, CBC, MG, TROP, BNP #### [address] Estimated GFR (Non- Am 12 [facility] Comment on above: Performed By: #### C MP, CBC, MG, TROP, BNP #### [address] Glucose [Mass/Vol] 154 mg/dL High 70-100 [facility] Comment on above: Result Comment: [place] om Glucose Reference Range is dependent on time and content of last meal. Glucose of more than 200 mg/dL in a nonstressed, ambulatory subject supports the diagnosis of Diabetes Mellitus. ADA recommended reference range Performed By: #### C MP, CBC, MG, TROP, BNP #### [address] Potassium [Moles/Vol] 4.9 mmol/L Normal 3.5-5.1 [facility] Comment on above: Performed By: #### C MP, CBC, MG, TROP, BNP #### [address] Sodium [Moles/Vol] 129 mmol/L Low 136-146 [facility] Comment on above: Performed By: #### C MP, CBC, MG, TROP, BNP #### [address] Urea nitrogen [Mass/Vol] 54 mg/dL High - [facility] Comment on above: Performed By: #### C MP, CBC, MG, TROP, BNP #### [address] biopsyon 08-22-2020 Transferrin [Mass/Vol] 104 mg/dL 180-380 [facility] Complete Blood Count Auto Di ffon 08-22-2020 Basophils (Bld) [#/Vol] 0.0 10*3/uL Normal 0.0-0.2 [facility] Comment on above: Result Comment: PERF ORMED BY: [place] [address] PATHOLOGIST METER MAKER JORDAN RODRIGUEZ M.D. Performed By: #### C MP, CBC, MG, TROP, BNP #### [address] Basophils/100 WBC (Bld) 0.2 % Normal . [facility] Comment on above: Performed By: #### C MP, CBC, MG, TROP, BNP #### [address] Eosinophils (Bld) [#/Vol] 0.0 10*3/uL Normal 0.0-0.45 [facility] Comment on above: Performed By: #### C MP, CBC, MG, TROP, BNP #### [place] [address] [place] Eosinophils/100 WBC (Bld) 0.1 % Normal . [facility] Comment on above: Performed By: #### C MP, CBC, MG, TROP, BNP #### [address] Erythrocyte distribution width (RBC) [Ratio] 16.4 % High 12.0-14.8 [facility] Comment on above: Performed By: #### C MP, CBC, MG, TROP, BNP #### [address] Hematocrit (Bld) [Volume fraction] 30.4 % Low 38.8-50.0 [facility] Comment on above: Performed By: #### C MP, CBC, MG, TROP, BNP #### [address] Hemoglobin (Bld) [Mass/Vol] 9.9 g/dL Low 13.0-17.0 [facility] Comment on above: Performed By: #### C MP, CBC, MG, TROP, BNP #### [address] Lymphocytes (Bld) [#/Vol] 0.6 10*3/uL Low 1.00-4.8 [facility] Comment on above: Performed By: #### C MP, CBC, MG, TROP, BNP #### [address] Lymphocytes/100 WBC (Bld) 5.6 % Normal . [facility] Comment on above: Performed By: #### C MP, CBC, MG, TROP, BNP #### [address] MCH (RBC) [Entitic mass] 27.1 pg Low 27.5-35.2 [facility] Comment on above: Performed By: #### C MP, CBC, MG, TROP, BNP #### [address] MCV (RBC) [Entitic vol] 83.4 fL Low 83.5-101 [facility] Comment on above: Performed By: #### C MP, CBC, MG, TROP, BNP #### [address] Mean Corpuscular HGB Conc 32.5 g/dL Normal 32.5-35.6 [facility] Comment on above: Performed By: #### C MP, CBC, MG, TROP, BNP #### [address] Monocytes (Bld) [#/Vol] 0.8 10*3/uL Normal 0.0-0.8 [facility] Comment on above: Performed By: #### C MP, CBC, MG, TROP, BNP #### [address] Monocytes/100 WBC (Bld) 7.7 % Normal . [facility] Comment on above: Performed By: #### C MP, CBC, MG, TROP, BNP #### [address] Neutrophils (Bld) [#/Vol] 9.5 10*3/uL High 1.8-7.7 [facility] Comment on above: Performed By: #### C MP, CBC, MG, TROP, BNP #### [address] Neutrophils/100 WBC (Bld) 86.4 % Normal . [facility] Comment on above: Performed By: #### C MP, CBC, MG, TROP, BNP #### [address] Nucleated RBC/100 WBC (Bld) [Ratio] 0.0 % Normal 0-0.5 [facility] Comment on above: Performed By: #### C MP, CBC, MG, TROP, BNP #### [address] Platelet mean volume (Bld) [Entitic vol] 7.8 fL Normal 6.6-10.1 [facility] Comment on above: Performed By: #### C MP, CBC, MG, TROP, BNP #### [address] [place] [address] [place] Platelets (Bld) [#/Vol] 227 10*3/uL Normal 150-450 [facility] Comment on above: Performed By: #### C MP, CBC, MG, TROP, BNP #### [address] RBC (Bld) [#/Vol] 3.64 10*6/uL Low 3.90-5.60 [facility] Comment on above: Performed By: #### C MP, CBC, MG, TROP, BNP #### [address] WBC (Bld) [#/Vol] 11.0 10*3/uL Normal 4.5-11.0 [facility] Comment on above: Performed By: #### C MP, CBC, MG, TROP, BNP #### [address] ECG 12 lead ECGon 08-22-2020 ECG 12 lead ECG [facility] Main [place] [address] [place] [address] Electrocardiograph Report Signed Patient: Rashard Lyman MR#: [id number] : 1960 Acct:[id number] Age/Sex: 60 / M ADM Date: 08/18/20 Loc: Room: [address] [place] [address] Type: ADM IN Attending Dr: Gordon Ewing [...] MD 08/22/20 1221 Signed By: 08/23/20 1047 [facility] ECG 12 lead ECG [facility] [place] [address] Electrocardiograph Report Signed Patient: Rashard Lyman MR#: [id number] : 1960 Acct:[id number] Age/Sex: 60 / M ADM Date: 08/18/20 Loc: 4 Room: [address] [place] [address] Type: ADM IN Attending Dr: Gordon Ewing [...] MD 08/22/20 0751 Signed By: 08/22/20 1201 [facility] echo transthoracicon E[facility] echo transthoracic [facility] Main [place] [id number] Echocardiogram Signed Patient: Rashard Lyman MR#: [id number] : 1960 Acct:[id number] Age/Sex: 60 / M ADM Date: 08/18/20 Loc: 4 Room: [address] [place] [address] Type: ADM IN Attending Dr: Gordon Ewing MD Ordering Provider: Gautam Bazan MD Date of Service: 08/22/20 [facility] echo transthoracic: Pericarditis Copies to: Gautam Bazan [...] 08/22/20 1016 Signed By: 08/22/20 1138 Normal [facility] FE PROon 08-22-2020 % Iron Saturation 11.0 % Low 20-50 [facility] Comment on above: Performed By: #### C MP, CBC, MG, TROP, BNP #### [address] Ferritin [Mass/Vol] 334.8 ng/mL Normal 23.9-336.2 [facility] Comment on above: Result Comment: PERF ORMED BY: [place] [address] PATHOLOGIST METER MAKER JORDAN RODRIGUEZ M.D. Performed By: #### C MP, CBC, MG, TROP, BNP #### [address] Iron [Mass/Vol] 17 ug/dL Low 40-160 [facility] Comment on above: Performed By: #### C MP, CBC, MG, TROP, BNP #### [facility] [address] [place] [address] Total Iron Binding Capacity 146 ug/dL Low 255-450 [facility] Comment on above: Performed By: #### C MP, CBC, MG, TROP, BNP #### [facility] [address] [place] [address] Transferrin [Mass/Vol] 104 mg/dL Low 180-380 [facility] Comment on above: Performed By: #### C MP, CBC, MG, TROP, BNP #### [facility] [address] [place] [address] [place] Ferritin [Mass/volume] in Se rum or Plasmaon 08-22-2020 Ferritin [Mass/Vol] 334.8 ng/mL 23.9-336.2 [facility] Glucose Poct Glucometerson 0 08-22-2020 Commemt1 Glu2: Cleaned Meter Normal [facility] Comment on above: Result Comment: PERF ORMED BY: [facility] [address] [place] [id number] PATHOLOGIST METER MAKER JORDAN RODRIGUEZ M.D. Performed By: #### C OVID-19 LIAT, SOFIANEG #### [facility] 1111 [place] [id number] [place] Glucose [Mass/Vol] 81 mg/dL Normal [facility] Comment on above: Result Comment: [place] om Glucose Reference Range is dependent on time and content of last meal. Glucose of more than 200 mg/dL in a nonstressed, ambulatory subject supports the diagnosis of Diabetes Mellitus. Performed By: #### C OVID-19 LIAT, SOFIANEG #### [facility] [address] [place] [address] [place] Glucose [Mass/Vol] 106 mg/dL Normal [facility] Comment on above: Result Comment: [place] om Glucose Reference Range is dependent on time and content of last meal. Glucose of more than 200 mg/dL in a nonstressed, ambulatory subject supports the diagnosis of Diabetes Mellitus. PERFORMED BY: [place] [address] PATHOLOGIST METER MAKER JORDAN RODRIGUEZ M.D. Performed By: #### C OVID-19 LIAT, SOFIANEG #### [place] [id number] [place] Glucose [Mass/Vol] 158 mg/dL Normal [facility] Comment on above: Result Comment: [place] om Glucose Reference Range is dependent on time and content of last meal. Glucose of more than 200 mg/dL in a nonstressed, ambulatory subject supports the diagnosis of Diabetes Mellitus. PERFORMED BY: [facility] [address] [place] [id number] PATHOLOGIST METER MAKER JORDAN RODRIGUEZ M.D. Performed By: #### C OVID-19 LIAT, SOFIANEG #### [facility] 1111 [place] [address] [place] Glucose [Mass/Vol] 138 mg/dL Normal [facility] Comment on above: Result Comment: [place] om Glucose Reference Range is dependent on time and content of last meal. Glucose of more than 200 mg/dL in a nonstressed, ambulatory subject supports the diagnosis of Diabetes Mellitus. PERFORMED BY: [place] [address] PATHOLOGIST METER MAKER JORDAN RODRIGUEZ M.D. Performed By: #### C MP, CBC, MG, TROP, BNP #### [address] Glucose [Mass/Vol] 177 mg/dL Normal [facility] Comment on above: Result Comment: [facility] Glucose Reference Range is dependent on time and content of last meal. Glucose of more than 200 mg/dL in a nonstressed, ambulatory subject supports the diagnosis of Diabetes Mellitus. PERFORMED BY: [place] [address] PATHOLOGIST METER MAKER JORDAN RODRIGUEZ M.D. Performed By: #### C MP, CBC, MG, TROP, BNP #### [address] Iron [Mass/volume] in Serum or Plasmaon 08-22-2020 Iron [Mass/Vol] 17 ug/dL 40-160 [facility] Iron binding capacity [Mass/ volume] in Serum or Plasmaon 08-22-2020 Iron binding capacity [Mass/Vol] 146 ug/dL 255-450 [facility] Iron saturation [Mass Fracti on] in Serum or Plasmaon 08-22-2020 Iron saturation [Mass fraction] 11.0 % 20-50 [facility] Basic Metabolic Panelon 07-29 Calcium [Mass/Vol] 8.8 mg/dL Normal 8.2-10.2 [facility] Comment on above: Performed By: #### C MP, CBC, MG, TROP, BNP #### [place] [address] [place] Chloride [Moles/Vol] 95 mmol/L Normal 95-114 [facility] Comment on above: Performed By: #### C MP, CBC, MG, TROP, BNP #### [place] [address] [place] CO2 [Moles/Vol] 24.4 mmol/L Normal 22.0-30.0 [facility] Comment on above: Performed By: #### C MP, CBC, MG, TROP, BNP #### [address] Creatinine [Mass/Vol] 4.31 mg/dL High 0.64-1.27 [facility] Comment on above: Performed By: #### C MP, CBC, MG, TROP, BNP #### [address] Creatinine Clr Calc Pharmacy 30.19 [facility] Comment on above: Result Comment: PERF ORMED BY: [place] [address] PATHOLOGIST METER MAKER JORDAN RODRIGUEZ M.D. Performed By: #### C MP, CBC, MG, TROP, BNP #### [address] Estimated GFR ( Camilla 17 [facility] Comment on above: Result Comment: GFR estimated reference range: According to KDOQI guidelines, <60 ml/min/1.73m2 is sufficient to diagnose a patient with chronic kidney disease. Performed By: #### C MP, CBC, MG, TROP, BNP #### [address] Estimated GFR (Non- Am 14 [facility] Comment on above: Performed By: #### C MP, CBC, MG, TROP, BNP #### [address] Glucose [Mass/Vol] 206 mg/dL High 70-100 [facility] Comment on above: Result Comment: [place] om Glucose Reference Range is dependent on time and content of last meal. Glucose of more than 200 mg/dL in a nonstressed, ambulatory subject supports the diagnosis of Diabetes Mellitus. ADA recommended reference range Performed By: #### C MP, CBC, MG, TROP, BNP #### [address] Potassium [Moles/Vol] 4.3 mmol/L Normal 3.5-5.1 [facility] Comment on above: Performed By: #### C MP, CBC, MG, TROP, BNP #### [address] Sodium [Moles/Vol] 131 mmol/L Low 136-146 [facility] Comment on above: Performed By: #### C MP, CBC, MG, TROP, BNP #### [address] Urea nitrogen [Mass/Vol] 44 mg/dL High 9-23 [facility] Comment on above: Performed By: #### C MP, CBC, MG, TROP, BNP #### [address] Creatine Kinaseon 08-21-2020 CK [Catalytic activity/Vol] 45 U/L Normal [facility] Comment on above: Performed By: #### C MP, CBC, MG, TROP, BNP #### [address] Creatine kinase [Enzymatic a ctivity/volume] in Serum or Plasmaon 08-21-2020 CK [Catalytic activity/Vol] 45 U/L [facility] Creatinine Kinase MBon 08-21 CK.MB [Mass/Vol] 2.3 ng/mL Normal 0.6-6.3 [facility] Comment on above: Performed By: #### C MP, CBC, MG, TROP, BNP #### [address] CKMB Relative Index 5.1 % High 0.00-2.50 [facility] Comment on above: Performed By: #### C MP, CBC, MG, TROP, BNP #### [address] ECG 12 lead ECGon 08-21-2020 ECG 12 lead ECG [facility] Main [place] [address] [place] [address] Electrocardiograph Report Signed Patient: Rashard Lyman MR#: [id number] 1397 : 1960 Acct:[id number] Age/Sex: 60 / M ADM Date: 08/18/20 Loc: Room: [address] [place] [address] Type: ADM IN Attending Dr: Eugene Morel [...] DO 08/21/20 0956 Signed By: 08/21/202008 Normal [facility] ECG 12 lead ECG [facility] [place] [address] Electrocardiograph Report Signed Patient: Rashard Lyman MR#: [id number] : 1960 Acct:[id number] Age/Sex: 60 / M ADM Date: 08/18/20 Loc: Room: [address] [place] [address] Type: ADM IN Attending Dr: Eugene Morel [...] By: 08/21/202029 [facility] ECG 12 lead ECG [facility] [place] [address] Electrocardiograph Report Signed Patient: Rashard Lyman MR#: [id number] : 1960 Acct:[id number] Age/Sex: 60 / M ADM Date: 08/18/20 Loc: Room: [address] [place] [address] Type: ADM IN Attending Dr: Eugene Morel [...] By: NURIA Dictated By: Nir Ochoa DO 08/21/2016 Signed By: 08/21/202053 [facility] Glucose Poct Glucometerson 0 08-21-2020 Glucose [Mass/Vol] 210 mg/dL [facility] Comment on above: Result Comment: [place] Glucose Reference Range is dependent on time and content of last meal. Glucose of more than 200 mg/dL in a nonstressed, ambulatory subject supports the diagnosis of Diabetes Mellitus. PERFORMED BY: [place] [address] PATHOLOGIST METER MAKER JORDAN RODRIGUEZ M.D. Performed By: #### C MP, CBC, MG, TROP, BNP #### [address] Commemt1 Glu2: Cleaned Meter [facility] Comment on above: Result Comment: PERF ORMED BY: [place] [address] PATHOLOGIST METER MAKER JORDAN RODRIGUEZ M.D. Performed By: #### C MP, CBC, MG, TROP, BNP #### [address] Glucose [Mass/Vol] 136 mg/dL Normal [facility] Comment on above: Result Comment: [place] om Glucose Reference Range is dependent on time and content of last meal. Glucose of more than 200 mg/dL in a nonstressed, ambulatory subject supports the diagnosis of Diabetes Mellitus. Performed By: #### C MP, CBC, MG, TROP, BNP #### [address] Commemt1 Glu2: Cleaned Meter [facility] Comment on above: Result Comment: PERF ORMED BY: [place] [address] PATHOLOGIST METER MAKER JORDAN RODRIGUEZ M.D. Performed By: #### C MP, CBC, MG, TROP, BNP #### [address] Glucose [Mass/Vol] 198 mg/dL Normal [facility] Comment on above: Result Comment: [place] om Glucose Reference Range is dependent on time and content of last meal. Glucose of more than 200 mg/dL in a nonstressed, ambulatory subject supports the diagnosis of Diabetes Mellitus. Performed By: #### C MP, CBC, MG, TROP, BNP #### [address] Commemt1 Glu2: Cleaned Meter [facility] Comment on above: Result Comment: PERF ORMED BY: [place] [address] PATHOLOGIST METER MAKER JORDAN RODRIGUEZ M.D. Performed By: #### C MP, CBC, MG, TROP, BNP #### [address] Glucose [Mass/Vol] 221 mg/dL Normal [facility] Comment on above: Result Comment: [place] om Glucose Reference Range is dependent on time and content of last meal. Glucose of more than 200 mg/dL in a nonstressed, ambulatory subject supports the diagnosis of Diabetes Mellitus. Performed By: #### C MP, CBC, MG, TROP, BNP #### [address] Glucose [Mass/Vol] 210 mg/dL Normal [facility] Comment on above: Result Comment: [place] om Glucose Reference Range is dependent on time and content of last meal. Glucose of more than 200 mg/dL in a nonstressed, ambulatory subject supports the diagnosis of Diabetes Mellitus. PERFORMED BY: [place] [address] PATHOLOGIST METER MAKER JORDAN RODRIGUEZ M.D. Performed By: #### C MP, CBC, MG, TROP, BNP #### [address] No Panel Informationon 08-21 Dohle Bodies Slight [facility] Scan and CBCon 08-21-2020 Anisocytosis Ql (Bld) Slight Normal [facility] Comment on above: Performed By: #### C MP, CBC, MG, TROP, BNP #### [address] Basophils (Bld) [#/Vol] 0.0 10*3/uL Normal 0.0-0.2 [facility] Comment on above: Performed By: #### C MP, CBC, MG, TROP, BNP #### [place] [address] [place] Basophils/100 WBC (Bld) 0.3 % Normal . [facility] Comment on above: Performed By: #### C MP, CBC, MG, TROP, BNP #### [address] Dohle Bodies Slight Normal [facility] Comment on above: Performed By: #### C MP, CBC, MG, TROP, BNP #### [address] Eosinophils (Bld) [#/Vol] 0.5 10*3/uL High 0.0-0.45 [facility] Comment on above: Performed By: #### C MP, CBC, MG, TROP, BNP #### [address] Eosinophils/100 WBC (Bld) 3.2 % Normal . [facility] Comment on above: Performed By: #### C MP, CBC, MG, TROP, BNP #### [address] Erythrocyte distribution width (RBC) [Ratio] 16.6 % High 12.0-14.8 [facility] Comment on above: Performed By: #### C MP, CBC, MG, TROP, BNP #### [address] Hematocrit (Bld) [Volume fraction] 31.8 % Low 38.8-50.0 [facility] Comment on above: Performed By: #### C MP, CBC, MG, TROP, BNP #### [address] Hemoglobin (Bld) [Mass/Vol] 10.3 g/dL Low 13.0-17.0 [facility] Comment on above: Performed By: #### C MP, CBC, MG, TROP, BNP #### [address] Lymphocytes (Bld) [#/Vol] 1.2 10*3/uL Normal 1.00-4.8 [facility] Comment on above: Performed By: #### C MP, CBC, MG, TROP, BNP #### [address] Lymphocytes/100 WBC (Bld) 8.1 % Normal . [facility] Comment on above: Performed By: #### C MP, CBC, MG, TROP, BNP #### [address] MCH (RBC) [Entitic mass] 26.8 pg Low 27.5-35.2 [facility] Comment on above: Performed By: #### C MP, CBC, MG, TROP, BNP #### [address] MCV (RBC) [Entitic vol] 83.1 fL Low 83.5-101 [facility] Comment on above: Performed By: #### C MP, CBC, MG, TROP, BNP #### [address] Mean Corpuscular HGB Conc 32.3 g/dL Low 32.5-35.6 [facility] Comment on above: Performed By: #### C MP, CBC, MG, TROP, BNP #### [place] [address] [place] Monocytes (Bld) [#/Vol] 1.7 10*3/uL High 0.0-0.8 [facility] Comment on above: Performed By: #### C MP, CBC, MG, TROP, BNP #### [address] Monocytes/100 WBC (Bld) 11.4 % Normal . [facility] Comment on above: Performed By: #### C MP, CBC, MG, TROP, BNP #### [place] [address] [place] Neutrophils (Bld) [#/Vol] 11.2 10*3/uL High 1.8-7.7 [facility] Comment on above: Performed By: #### C MP, CBC, MG, TROP, BNP #### [address] Neutrophils/100 WBC (Bld) 77.0 % Normal . [facility] Comment on above: Performed By: #### C MP, CBC, MG, TROP, BNP #### [address] Nucleated RBC/100 WBC (Bld) [Ratio] 0.1 % Normal 0-0.5 [facility] Comment on above: Performed By: #### C MP, CBC, MG, TROP, BNP #### [address] Platelet Estimate Normal Normal Normal [facility] Comment on above: Performed By: #### C MP, CBC, MG, TROP, BNP #### [address] Platelet mean volume (Bld) [Entitic vol] 7.8 fL Normal 6.6-10.1 [facility] Comment on above: Performed By: #### C MP, CBC, MG, TROP, BNP #### [address] Platelet Morphology Normal Normal Normal [facility] Comment on above: Result Comment: PERF ORMED BY: [place] [address] PATHOLOGIST METER MAKER JORDAN RODRIGUEZ M.D. Performed By: #### C MP, CBC, MG, TROP, BNP #### [address] Platelets (Bld) [#/Vol] 265 10*3/uL Normal 150-450 [facility] Comment on above: Performed By: #### C MP, CBC, MG, TROP, BNP #### [address] RBC (Bld) [#/Vol] 3.83 10*6/uL Low 3.90-5.60 [facility] Comment on above: Performed By: #### C MP, CBC, MG, TROP, BNP #### [address] WBC (Bld) [#/Vol] 14.6 10*3/uL High 4.5-11.0 [facility] Comment on above: Performed By: #### C MP, CBC, MG, TROP, BNP #### [address] [address] Serum or plasma cardiac trop onin I measurement (mass/volume)on 08-21-2020 Troponin I.cardiac [Mass/Vol] ng/mL 0-0.02 [facility] Comment on above: [place] Cut off value > or equal to 0.03 ng/mL in conjunction with clinical conditions of myocardial infarction.(www.escardio.org/guidelines) Serum or plasma creatine kin ase MB (CKMB)/total creatine kinase (CK) ratio by calculaon 08-21-2020 CK.MB Calc [Catalytic fraction] 5.1 % 0.00-2.50 [facility] Serum or plasma creatine kin ase MB measurement (mass/volume)on 08-21-2020 CK.MB [Mass/Vol] 2.3 ng/mL 0.6-6.3 [facility] Troponin I(TnI)on 08-21-2020 Troponin I.cardiac [Mass/Vol] ng/mL Normal 0-0.02 [facility] Comment on above: Result Comment: [place] Cut off value > or equal to 0.03 ng/mL in conjunction with clinical conditions of myocardial infarction. (www.escardio.org/guidelines) PERFORMED BY: [place] [address] PATHOLOGIST METER MAKER JORDAN RODRIGUEZ M.D. Performed By: #### C MP, CBC, MG, TROP, BNP #### [facility] [address] Troponin I.cardiac [Mass/Vol] ng/mL Normal 0-0.02 [facility] Comment on above: Result Comment: [place] Cut off value > or equal to 0.03 ng/mL in conjunction with clinical conditions of myocardial infarction. (www.escardio.org/guidelines) PERFORMED BY: [place] [address] PATHOLOGIST METER MAKER JORDAN RODRIGUEZ M.D. Performed By: #### C MP, CBC, MG, TROP, BNP #### [address] Basic Metabolic Panelon 07-29 Calcium [Mass/Vol] 8.4 mg/dL Normal 8.2-10.2 [facility] Comment on above: Performed By: #### C MP, CBC, MG, TROP, BNP #### [address] Chloride [Moles/Vol] 99 mmol/L Normal 95-114 [facility] Comment on above: Performed By: #### C MP, CBC, MG, TROP, BNP #### [address] CO2 [Moles/Vol] 25.0 mmol/L Normal 22.0-30.0 [facility] Comment on above: Performed By: #### C MP, CBC, MG, TROP, BNP #### [address] Creatinine [Mass/Vol] 3.26 mg/dL High 0.64-1.27 [facility] Comment on above: Performed By: #### C MP, CBC, MG, TROP, BNP #### [address] Creatinine Clr Calc Pharmacy 39.92 [facility] Comment on above: Result Comment: PERF ORMED BY: [place] [address] PATHOLOGIST METER MAKER JORDAN RODRIGUEZ M.D. Performed By: #### C MP, CBC, MG, TROP, BNP #### [address] Estimated GFR ( Camilla 24 Normal [facility] Comment on above: Result Comment: GFR estimated reference range: According to KDOQI guidelines, <60 ml/min/1.73m2 is sufficient to diagnose a patient with chronic kidney disease. Performed By: #### C MP, CBC, MG, TROP, BNP #### [address] Estimated GFR (Non- Am 19 Normal [facility] Comment on above: Performed By: #### C MP, CBC, MG, TROP, BNP #### [address] Glucose [Mass/Vol] 205 mg/dL High 70-100 [facility] Comment on above: Result Comment: [place] Glucose Reference Range is dependent on time and content of last meal. Glucose of more than 200 mg/dL in a nonstressed, ambulatory subject supports the diagnosis of Diabetes Mellitus. ADA recommended reference range Performed By: #### C MP, CBC, MG, TROP, BNP #### [address] Potassium [Moles/Vol] 3.5 mmol/L Normal 3.5-5.1 [facility] Comment on above: Performed By: #### C MP, CBC, MG, TROP, BNP #### [address] Sodium [Moles/Vol] 131 mmol/L Low 136-146 [facility] Comment on above: Performed By: #### C MP, CBC, MG, TROP, BNP #### [address] Urea nitrogen [Mass/Vol] 35 mg/dL High 9-23 [facility] Comment on above: Performed By: #### C MP, CBC, MG, TROP, BNP #### [address] C-Reactive Proteinon 021 C-Reactive Protein 19.4 mg/dL High 0.0-1.0 [facility] Comment on above: Result Comment: PERF ORMED BY: [place] [address] PATHOLOGIST METER MAKER JORDAN RODRIGUEZ M.D. Performed By: #### C MP, CBC, MG, TROP, BNP #### [address] Erythrocyte Sedimentation Ra donato 08-20-2020 ESR (Bld) [Velocity] 108 mm/h High 0- [facility] Comment on above: Result Comment: PERF ORMED BY: [place] [address] PATHOLOGIST METER MAKER JORDAN RODRIGUEZ M.D. Performed By: #### C MP, CBC, MG, TROP, BNP #### [address] Erythrocyte sedimentation ra te by Photometric methodon 08-20-2020 ESR Photometric method (Bld) [Velocity] 108 mm/hr 0- [facility] Glucose Poct Glucometerson 0 08-20-2020 Glucose [Mass/Vol] 195 mg/dL Normal [facility] Comment on above: Result Comment: [place] om Glucose Reference Range is dependent on time and content of last meal. Glucose of more than 200 mg/dL in a nonstressed, ambulatory subject supports the diagnosis of Diabetes Mellitus. PERFORMED BY: [place] [address] PATHOLOGIST METER MAKER JORDAN RODRIGUEZ M.D. Performed By: #### C MP, CBC, MG, TROP, BNP #### [address] Glucose [Mass/Vol] 171 mg/dL Normal [facility] Comment on above: Result Comment: [place] om Glucose Reference Range is dependent on time and content of last meal. Glucose of more than 200 mg/dL in a nonstressed, ambulatory subject supports the diagnosis of Diabetes Mellitus. PERFORMED BY: [place] [address] PATHOLOGIST METER MAKER JORDAN RODRIGUEZ M.D. Performed By: #### C MP, CBC, MG, TROP, BNP #### [address] Glucose [Mass/Vol] 246 mg/dL Normal [facility] Comment on above: Result Comment: [place] om Glucose Reference Range is dependent on time and content of last meal. Glucose of more than 200 mg/dL in a nonstressed, ambulatory subject supports the diagnosis of Diabetes Mellitus. PERFORMED BY: [place] [address] PATHOLOGIST METER MAKER JORDAN RODRIGUEZ M.D. Performed By: #### C MP, CBC, MG, TROP, BNP #### [address] Glucose [Mass/Vol] 274 mg/dL Normal [facility] Comment on above: Result Comment: [place] om Glucose Reference Range is dependent on time and content of last meal. Glucose of more than 200 mg/dL in a nonstressed, ambulatory subject supports the diagnosis of Diabetes Mellitus. PERFORMED BY: [place] [address] PATHOLOGIST METER MAKER JORDAN RODRIGUEZ M.D. Performed By: #### C MP, CBC, MG, TROP, BNP #### [address] Glucose [Mass/Vol] 221 mg/dL Normal [facility] Comment on above: Result Comment: [place] om Glucose Reference Range is dependent on time and content of last meal. Glucose of more than 200 mg/dL in a nonstressed, ambulatory subject supports the diagnosis of Diabetes Mellitus. PERFORMED BY: [place] [address] PATHOLOGIST METER MAKER JORDAN RODRIGUEZ M.D. Performed By: #### C MP, CBC, MG, TROP, BNP #### [address] MR thoracic spine wo conon 0 08-20-2020 MR thoracic spine wo con [facility] [place] [address] [place] [address] MRI Report Signed Patient: Rashard Lyman MR#: [id number] : 1960 Acct:[id number] Age/Sex: 60 / M ADM Date: 08/18/20 Loc: Room: [address] [place] [address] Type: ADM IN Attending Dr: Eugene Morel [...] Chitra Brantley M.D.08/20/2020 6:27 PM Dictation Location: [place] [address] Transcribed By: [facility] 08/20/201826 Dictated By: Chitra Brantley MD 08/20/201816 Signed By: 08/20/201826 Normal [facility] Scan and CBCon 08-20-2020 Anisocytosis Ql (Bld) Slight Normal [facility] Comment on above: Performed By: #### C MP, CBC, MG, TROP, BNP #### [facility] [address] Basophils (Bld) [#/Vol] 0.0 10*3/uL Normal 0.0-0.2 [facility] Comment on above: Performed By: #### C MP, CBC, MG, TROP, BNP #### [facility] [address] [place] [address] [place] Basophils/100 WBC (Bld) 0.3 % Normal . [facility] Comment on above: Performed By: #### C MP, CBC, MG, TROP, BNP #### [address] Dohle Bodies Slight Normal [facility] Comment on above: Performed By: #### C MP, CBC, MG, TROP, BNP #### [address] Eosinophils (Bld) [#/Vol] 0.5 10*3/uL High 0.0-0.45 [facility] Comment on above: Performed By: #### C MP, CBC, MG, TROP, BNP #### [address] Eosinophils/100 WBC (Bld) 3.8 % Normal . [facility] Comment on above: Performed By: #### C MP, CBC, MG, TROP, BNP #### [address] Erythrocyte distribution width (RBC) [Ratio] 16.2 % High 12.0-14.8 [facility] Comment on above: Performed By: #### C MP, CBC, MG, TROP, BNP #### [address] Hematocrit (Bld) [Volume fraction] 32.1 % Low 38.8-50.0 [facility] Comment on above: Performed By: #### C MP, CBC, MG, TROP, BNP #### [address] Hemoglobin (Bld) [Mass/Vol] 10.4 g/dL Low 13.0-17.0 [facility] Comment on above: Performed By: #### C MP, CBC, MG, TROP, BNP #### [address] Lymphocytes (Bld) [#/Vol] 1.5 10*3/uL Normal 1.00-4.8 [facility] Comment on above: Performed By: #### C MP, CBC, MG, TROP, BNP #### [address] Lymphocytes/100 WBC (Bld) 11.0 % Normal . [facility] Comment on above: Performed By: #### C MP, CBC, MG, TROP, BNP #### [address] MCH (RBC) [Entitic mass] 26.7 pg Low 27.5-35.2 [facility] Comment on above: Performed By: #### C MP, CBC, MG, TROP, BNP #### [address] MCV (RBC) [Entitic vol] 82.2 fL Low 83.5-101 [facility] Comment on above: Performed By: #### C MP, CBC, MG, TROP, BNP #### [address] Mean Corpuscular HGB Conc 32.5 g/dL Normal 32.5-35.6 [facility] Comment on above: Performed By: #### C MP, CBC, MG, TROP, BNP #### [address] Monocytes (Bld) [#/Vol] 1.7 10*3/uL High 0.0-0.8 [facility] Comment on above: Performed By: #### C MP, CBC, MG, TROP, BNP #### [address] Monocytes/100 WBC (Bld) 12.5 % Normal . [facility] Comment on above: Performed By: #### C MP, CBC, MG, TROP, BNP #### [place] [address] [place] Neutrophils (Bld) [#/Vol] 9.7 10*3/uL High 1.8-7.7 [facility] Comment on above: Performed By: #### C MP, CBC, MG, TROP, BNP #### [address] Neutrophils/100 WBC (Bld) 72.4 % Normal . [facility] Comment on above: Performed By: #### C MP, CBC, MG, TROP, BNP #### [address] Nucleated RBC/100 WBC (Bld) [Ratio] 0.0 % Normal 0-0.5 [facility] Comment on above: Performed By: #### C MP, CBC, MG, TROP, BNP #### [address] Platelet Estimate Normal Normal Normal [facility] Comment on above: Performed By: #### C MP, CBC, MG, TROP, BNP #### [address] Platelet mean volume (Bld) [Entitic vol] 7.7 fL Normal 6.6-10.1 [facility] Comment on above: Performed By: #### C MP, CBC, MG, TROP, BNP #### [address] Platelet Morphology Normal Normal Normal [facility] Comment on above: Performed By: #### C MP, CBC, MG, TROP, BNP #### [address] Platelets (Bld) [#/Vol] 253 10*3/uL Normal 150-450 [facility] Comment on above: Performed By: #### C MP, CBC, MG, TROP, BNP #### [address] RBC (Bld) [#/Vol] 3.90 10*6/uL Normal 3.90-5.60 [facility] Comment on above: Performed By: #### C MP, CBC, MG, TROP, BNP #### [address] WBC (Bld) [#/Vol] 13.4 10*3/uL High 4.5-11.0 [facility] Comment on above: Performed By: #### C MP, CBC, MG, TROP, BNP #### [address] Serum or plasma C reactive p rotein measurement (mass/volume)on 08-20-2020 CRP [Mass/Vol] 19.4 mg/dL 0.0-1.0 [facility] A1C with Estimated Average G cole 08-19-2020 Glucose [Mass/Vol] 298 mg/dL Normal [facility] Comment on above: Result Comment: PERF ORMED BY: [place] [address] PATHOLOGIST METER MAKER JORDAN RODRIGUEZ M.D. Performed By: #### C MP, CBC, MG, TROP, BNP #### [address] HbA1c (Bld) [Mass fraction] 12.0 % High 4.3-5.6 [facility] Comment on above: Result Comment: Incr eased risk for diabetes: 5.7 - 6.4 diabetes: >6.4 glycemic control for adults with diabetes: <7.0 Performed By: #### C MP, CBC, MG, TROP, BNP #### [address] ABO and Rh group post transf usion reaction Nom (Bld)on 08-19-2020 Microscopic observation Gram stain Nom (Unsp spec) [facility] Aerobic Cultureon 08-19-2020 Aerobic Culture Light Normal Respira tory Edith 2 Days Gram Stain Result 2+ White Blood Cells 1+ Epithelial Cells 1+ Gram Positive Cocci PERFORMED BY: [place] [address] PATHOLOGIST METER MAKER JORDAN RODRIGUEZ M.D. Normal [facility] Comment on above: Performed By: #### C MP, CBC, MG, TROP, BNP #### [address] Basic Metabolic Panelon 07-29 Calcium [Mass/Vol] 8.4 mg/dL Normal 8.2-10.2 [facility] Comment on above: Performed By: #### C MP, CBC, MG, TROP, BNP #### [facility] [address] Chloride [Moles/Vol] 98 mmol/L Normal 95-114 [facility] Comment on above: Performed By: #### C MP, CBC, MG, TROP, BNP #### [facility] [address] CO2 [Moles/Vol] 25.3 mmol/L Normal 22.0-30.0 [facility] Comment on above: Performed By: #### C MP, CBC, MG, TROP, BNP #### [facility] [address] Creatinine [Mass/Vol] 3.04 mg/dL High 0.64-1.27 [facility] Comment on above: Performed By: #### C MP, CBC, MG, TROP, BNP #### [address] Creatinine Clr Calc Pharmacy 42.91 [facility] Comment on above: Performed By: #### C MP, CBC, MG, TROP, BNP #### [address] Estimated GFR ( Camilla 26 [facility] Comment on above: Result Comment: GFR estimated reference range: According to KDOQI guidelines, <60 ml/min/1.73m2 is sufficient to diagnose a patient with chronic kidney disease. Performed By: #### C MP, CBC, MG, TROP, BNP #### [address] Estimated GFR (Non- Am 21 [facility] Comment on above: Performed By: #### C MP, CBC, MG, TROP, BNP #### [address] Glucose [Mass/Vol] 328 mg/dL High 70-100 [facility] Comment on above: Result Comment: [place] Glucose Reference Range is dependent on time and content of last meal. Glucose of more than 200 mg/dL in a nonstressed, ambulatory subject supports the diagnosis of Diabetes Mellitus. ADA recommended reference range Performed By: #### C MP, CBC, MG, TROP, BNP #### [facility] [address] Potassium [Moles/Vol] 3.4 mmol/L Low 3.5-5.1 [facility] Comment on above: Performed By: #### C MP, CBC, MG, TROP, BNP #### [facility] [address] Sodium [Moles/Vol] 131 mmol/L Low 136-146 [facility] Comment on above: Performed By: #### C MP, CBC, MG, TROP, BNP #### [facility] [address] Urea nitrogen [Mass/Vol] 30 mg/dL High 01-19 [facility] Comment on above: Performed By: #### C MP, CBC, MG, TROP, BNP #### [address] abdomen pelvis wo conon 0 08-19-2020 CT abdomen pelvis wo con [facility] [place] [address] [place] [address] CT Scan Report Signed Patient: Rashard Lyman MR#: [id number] : 1960 Acct:[id number] Age/Sex: 60 / M ADM Date: 08/18/20 Loc: Room: [address] [place] [address] Type: ADM IN Attending Dr: Eugene Morel DO Ordering Provider: Eugene Morel DO Date of Service: 08/19/20 CT/CT abdomen pelvis wo con: left sided pain ([id number]) CT/CT chest wo con: left lung base [...] Hector Mckinney M.D.08/19/2020 8:01 PM Dictation Location: [place] [address] Transcribed By: [facility] 08/19/202000 Dictated By: Hector Mckinney II, MD 08/19/20 194 Signed By: 08/19/202000 [facility] Glucose Poct Glucometerson 0 08-19-2020 Glucose [Mass/Vol] 266 mg/dL Normal [facility] Comment on above: Result Comment: [place] om Glucose Reference Range is dependent on time and content of last meal. Glucose of more than 200 mg/dL in a nonstressed, ambulatory subject supports the diagnosis of Diabetes Mellitus. PERFORMED BY: [place] [address] PATHOLOGIST METER MAKER JORDAN RODRIGUEZ M.D. Performed By: #### C MP, CBC, MG, TROP, BNP #### [facility] [address] [place] [address] [place] Glucose [Mass/Vol] 349 mg/dL Normal [facility] Comment on above: Result Comment: [place] om Glucose Reference Range is dependent on time and content of last meal. Glucose of more than 200 mg/dL in a nonstressed, ambulatory subject supports the diagnosis of Diabetes Mellitus. PERFORMED BY: [address] [place] [address] PATHOLOGIST METER MAKER JORDAN RODRIGUEZ M.D. Performed By: #### C MP, CBC, MG, TROP, BNP #### [facility] [address] [place] [address] [place] Glucose [Mass/Vol] 258 mg/dL Normal [facility] Comment on above: Result Comment: [place] om Glucose Reference Range is dependent on time and content of last meal. Glucose of more than 200 mg/dL in a nonstressed, ambulatory subject supports the diagnosis of Diabetes Mellitus. PERFORMED BY: [place] [address] PATHOLOGIST METER MAKER JORDAN RODRIGUEZ M.D. Performed By: #### C MP, CBC, MG, TROP, BNP #### [facility] [address] [place] [address] [place] Glucose [Mass/Vol] 292 mg/dL Normal [facility] Comment on above: Result Comment: [place] om Glucose Reference Range is dependent on time and content of last meal. Glucose of more than 200 mg/dL in a nonstressed, ambulatory subject supports the diagnosis of Diabetes Mellitus. PERFORMED BY: [address] [place] [address] PATHOLOGIST METER MAKER JORDAN RODRIGUEZ M.D. Performed By: #### C MP, CBC, MG, TROP, BNP #### [address] Commemt1 Glu2: Cleaned Meter Normal [facility] Comment on above: Result Comment: PERF ORMED BY: [place] [address] PATHOLOGIST METER MAKER JORDAN RODRIGUEZ M.D. Performed By: #### C MP, CBC, MG, TROP, BNP #### [address] Glucose [Mass/Vol] 350 mg/dL [facility] Comment on above: Result Comment: [facility] Glucose Reference Range is dependent on time and content of last meal. Glucose of more than 200 mg/dL in a nonstressed, ambulatory subject supports the diagnosis of Diabetes Mellitus. Performed By: #### C MP, CBC, MG, TROP, BNP #### [address] Glucose mean value [Mass/vol ume] in Blood Estimated from glycated hemoglobinon 08-19-2020 Average glucose Estimated from glycated hemoglobin (Bld) [Mass/Vol] 298 mg/dL [facility] Gram Stainon 08-19-2020 Microscopic observation Gram stain Nom (Unsp spec) Gram Stain Result 2+ White Blood Cells 1+ Epithelial Cells 1+ Gram Positive Cocci PERFORMED BY: [place] [address] PATHOLOGIST METER MAKER JORDAN RODRIGUEZ M.D. [facility] Comment on above: Performed By: #### C MP, CBC, MG, TROP, BNP #### [address] Hemoglobin A1c percentageon 08-19-2020 HbA1c (Bld) [Mass fraction] 12.0 % 4.3-5.6 [facility] Comment on above: Increased risk for d iabetes: 5.7 - 6.4diabetes: >6.4glycemic control for adults with diabetes: <7.0 Laboratory - Chemistry and C hemistry - challengeon 08-19-2020 Magnesium [Mass/Vol] 2.0 mg/dL 1.6-2.6 [facility] Magnesiumon 08-19-2020 Magnesium [Mass/Vol] 2.0 mg/dL Normal 1.6-2.6 [facility] Comment on above: Performed By: #### C MP, CBC, MG, TROP, BNP #### [address] No Panel Informationon 08-19 25-Hydroxy Vitamin D Total 24.6 ng/mL 30-100 [facility] Comment on above: VITAMIN D STATUS 25( [place])VITAMIN D RANGE (ng/mL) Deficient <20 Insufficient 20 to <30Sufficient 30 to 100Reference: Aki MF,Oriana NC, Elli JONAS, et al. Evaluation,treatment, and prevention of vitamin D deficiency; an Endocrine Society clinical practice guideline. JCEM. 2010; 96(7):1911-30. Scan and CBCon 08-19-2020 Anisocytosis Ql (Bld) Slight Normal [facility] Comment on above: Performed By: #### C MP, CBC, MG, TROP, BNP #### [address] Basophils (Bld) [#/Vol] 0.1 10*3/uL Normal 0.0-0.2 [facility] Comment on above: Performed By: #### C MP, CBC, MG, TROP, BNP #### [address] Basophils/100 WBC (Bld) 0.8 % Normal . [facility] Comment on above: Performed By: #### C MP, CBC, MG, TROP, BNP #### [address] Eosinophils (Bld) [#/Vol] 0.4 10*3/uL Normal 0.0-0.45 [facility] Comment on above: Performed By: #### C MP, CBC, MG, TROP, BNP #### [address] Eosinophils/100 WBC (Bld) 2.8 % Normal . [facility] Comment on above: Performed By: #### C MP, CBC, MG, TROP, BNP #### [address] Erythrocyte distribution width (RBC) [Ratio] 16.0 % High 12.0-14.8 [facility] Comment on above: Performed By: #### C MP, CBC, MG, TROP, BNP #### [address] Hematocrit (Bld) [Volume fraction] 32.4 % Low 38.8-50.0 [facility] Comment on above: Performed By: #### C MP, CBC, MG, TROP, BNP #### [address] Hemoglobin (Bld) [Mass/Vol] 10.5 g/dL Low 13.0-17.0 [facility] Comment on above: Performed By: #### C MP, CBC, MG, TROP, BNP #### [address] Lymphocytes (Bld) [#/Vol] 1.6 10*3/uL Normal 1.00-4.8 [facility] Comment on above: Performed By: #### C MP, CBC, MG, TROP, BNP #### [address] Lymphocytes/100 WBC (Bld) 11.4 % Normal . [facility] Comment on above: Performed By: #### C MP, CBC, MG, TROP, BNP #### [address] MCH (RBC) [Entitic mass] 26.6 pg Low 27.5-35.2 [facility] Comment on above: Performed By: #### C MP, CBC, MG, TROP, BNP #### [address] MCV (RBC) [Entitic vol] 82.4 fL Low 83.5-101 [facility] Comment on above: Performed By: #### C MP, CBC, MG, TROP, BNP #### [facility] [address] [place] [address] Mean Corpuscular HGB Conc 32.3 g/dL Low 32.5-35.6 [facility] Comment on above: Performed By: #### C MP, CBC, MG, TROP, BNP #### [address] Monocytes (Bld) [#/Vol] 1.6 10*3/uL High 0.0-0.8 [facility] Comment on above: Performed By: #### C MP, CBC, MG, TROP, BNP #### [address] Monocytes/100 WBC (Bld) 11.7 % Normal . [facility] Comment on above: Performed By: #### C MP, CBC, MG, TROP, BNP #### [address] Neutrophils (Bld) [#/Vol] 10.2 10*3/uL High 1.8-7.7 [facility] Comment on above: Performed By: #### C MP, CBC, MG, TROP, BNP #### [address] Neutrophils/100 WBC (Bld) 73.3 % Normal . [facility] Comment on above: Performed By: #### C MP, CBC, MG, TROP, BNP #### [place] [address] [place] Nucleated RBC/100 WBC (Bld) [Ratio] 0.0 % Normal 0-0.5 [facility] Comment on above: Performed By: #### C MP, CBC, MG, TROP, BNP #### [address] Platelet Estimate Normal Normal Normal [facility] Comment on above: Performed By: #### C MP, CBC, MG, TROP, BNP #### [address] Platelet mean volume (Bld) [Entitic vol] 7.5 fL Normal 6.6-10.1 [facility] Comment on above: Performed By: #### C MP, CBC, MG, TROP, BNP #### [address] Platelet Morphology Normal Normal Normal [facility] Comment on above: Result Comment: PERF ORMED BY: [place] [address] PATHOLOGIST METER MAKER JORDAN RODRIGUEZ M.D. Performed By: #### C MP, CBC, MG, TROP, BNP #### [address] Platelets (Bld) [#/Vol] 249 10*3/uL Normal 150-450 [facility] Comment on above: Performed By: #### C MP, CBC, MG, TROP, BNP #### [address] RBC (Bld) [#/Vol] 3.93 10*6/uL Normal 3.90-5.60 [facility] Comment on above: Performed By: #### C MP, CBC, MG, TROP, BNP #### [address] WBC (Bld) [#/Vol] 14.0 10*3/uL High 4.5-11.0 [facility] Comment on above: Performed By: #### C MP, CBC, MG, TROP, BNP #### [address] US renal BIon 08-19-2020 US renal BI [facility] [place] [address] Ultrasound Report Signed Patient: Rashard Lyman MR#: [id number] : 1960 Acct:[id number] Age/Sex: 60 / M ADM Date: 08/18/20 Loc: Room: [address] [place] [address] Type: ADM IN Attending Dr: Eugene Morel [...] Hector Mckinney M.D.08/19/2020 6:09 PM Dictation Location: [place] [address] Tech: Sandra Sierra Transcribed By: JU 08/19/201808 Dictated By: Hector Mckinney II, MD 08/19/201807 Signed By: 08/19/201808 Normal [facility] Vitamin D 25 Hydroxy Totalon 08-19-2020 Vitamin D 25 Hydroxy Total 24.6 ng/mL Low 30-100 [facility] Comment on above: Result Comment: ADA MIN D STATUS 25(OH)VITAMIN D RANGE (ng/mL) Deficient <20 Insufficient 20 to <30 Sufficient 30 to 100 Reference: Aki MF,Oriana NC, Phillip-Sy JONAS, et al. Evaluation,treatment, and prevention of vitamin D deficiency; an Endocrine Society clinical practice guideline. JCEM. 2010; 96(7):1911-30. PERFORMED BY: [address] [place] [address] PATHOLOGIST METER MAKER JORDAN RODRIGUEZ M.D. Performed By: #### C MP, CBC, MG, TROP, BNP #### [address] Activated partial thrombopla stin time (aPTT) in platelet poor plasma by coagulation aon 08-18-2020 aPTT Coag (PPP) [Time] 36.9 s 25.1-36.5 [facility] Albumin [Mass/volume] in Ser um or Plasmaon 08-18-2020 Albumin [Mass/Vol] 2.7 g/dL 3.2-5.5 [facility] B-Type Natriuretic Peptideon 08-18-2020 Natriuretic peptide B (Bld) [Mass/Vol] 48.0 pg/mL Normal 5-100 [facility] Comment on above: Result Comment: PERF ORMED BY: [place] [address] PATHOLOGIST METER MAKER JORDAN RODRIGUEZ M.D. Performed By: #### C MP, CBC, MG, TROP, BNP #### [address] Bacterial blood cultureon Bacteria identified Cx Nom (Bld) NO GROWTH 5 DAYS [facility] Basophils Auto (Bld) [#/Vol] on 08-18-2020 Basophils (Bld) [#/Vol] 0.0 10*3/uL 0.0-0.2 [facility] Basophils/100 WBC Auto (Bld) on 08-18-2020 Basophils/100 WBC (Bld) 0.3 % [facility] Beta Hydroxybuterateon 08-18 Beta Hydroxybuterate 0.44 mmol/L High 0.02-0.27 [facility] Comment on above: Result Comment: PERF ORMED BY: [place] [address] PATHOLOGIST METER MAKER JORDAN RODRIGUEZ M.D. Performed By: #### C MP, CBC, MG, TROP, BNP #### [address] Beta-hydroxybutyric acid faraz surementon 08-18-2020 Beta hydroxybutyrate [Mass/Vol] 0.44 mmol/L 0.02-0.27 [facility] BioFire Not Detectedon 08-18 BioFire Not Detected Not detected Normal Not Detecte [facility] Comment on above: Result Comment: This is a duplicate RP2.1 COVID (PCR) result to be used for statistical tracking purpose only. PERFORMED BY: [place] [address] PATHOLOGIST METER MAKER JORDAN RODRIGUEZ M.D. Performed By: #### C MP, CBC, MG, TROP, BNP #### [address] Blood Cultureon 08-18-2020 Bacteria identified Cx Nom (Bld) NO GROWTH 5 DAYS PERFORMED BY: [place] [address] PATHOLOGIST METER MAKER JORDAN RODRIGUEZ M.D. [facility] Comment on above: Performed By: #### C MP, CBC, MG, TROP, BNP #### [address] Bacteria identified Cx Nom (Bld) NO GROWTH 5 DAYS PERFORMED BY: [place] [address] PATHOLOGIST METER MAKER JORDAN RODRIGUEZ M.D. [facility] Comment on above: Performed By: #### C MP, CBC, MG, TROP, BNP #### [address] Blood hemoglobin measurement (mass/volume)on 08-18-2020 Hemoglobin (Bld) [Mass/Vol] 11.8 g/dL 13.0-17.0 [facility] Blood leukocytes automated c ount (number/volume)on 08-18-2020 WBC (Bld) [#/Vol] 15.3 10*3/uL 4.5-11.0 [facility] COVID-19 Antigenon COVID-19 Antigen Healthcare Worker?: N Liat Reference [...] consistent with COVID-19. COVID19 Blank Space -- Lita Disclaimer The Liat SARS Antigen AGUSTINA does not differentiate Liat Disclaimer between SARS-CoV and SARS-CoV-2. COVID19 Blank Space -- Liat Disclaimer This test was developed and its performance Liat Disclaimer characteristic determined by [employer] and Liat Disclaimer validated at [facility]. This Liat Disclaimer test has not [...] is terminated or revoked sooner. PERFORMED BY: [place] [address] PATHOLOGIST METER MAKER JORDAN RODRIGUEZ M.D. [facility] Comment on above: Performed By: #### C OVID-19 LIAT, SOFIANEG #### [facility] [address] [place] [address] [facility] COVID-19 Detected/Not Detect edon 08-18-2020 SARS-CoV-2 (COVID-19) RNA SUDHA+non-probe Ql (Nph) Not detected Not Detecte [facility] Comment on above: This is a duplicate RP2.1 COVID (PCR) result to be used for statistical tracking purpose only. COVID-19 SOFIAon 08-18-2020 SARS-CoV+SARS-CoV-2 (COVID-19) Ag IA.rapid Ql (Resp) Negative Negative [facility] Comment on above: This is a duplicate Liat SARS Antigen (AGUSTINA) result to be used for statistical tracking purpose only. Coagulation Profileon 2020 aPTT Coag (Bld) [Time] 36.9 s High 25.1-36.5 [facility] Comment on above: Order Comment: REDRA W FOR SHORT DRAW AND HEMOLYSIS Result Comment: PERF ORMED BY: [address] [address] PATHOLOGIST METER MAKER JORDAN RODRIGUEZ M.D. Performed By: #### P P #### [address] INR Coag (PPP) [Relative time] 1.0 {INR} Normal [facility] Comment on above: Order Comment: REDRA [...] 4.5 Performed By: #### P P #### [address] PT Coag (PPP) [Time] 11.7 s Normal 9.0-12.9 [facility] Comment on above: Order Comment: REDRA W FOR SHORT DRAW AND HEMOLYSIS Performed By: #### P P #### [address] Complete Blood Count Auto Di ffon 08-18-2020 Basophils (Bld) [#/Vol] 0.0 10*3/uL Normal 0.0-0.2 [facility] Comment on above: Result Comment: PERF ORMED BY: [place] [address] PATHOLOGIST METER MAKER JORDAN RODRIGUEZ M.D. Performed By: #### C MP, CBC, MG, TROP, BNP #### [address] Basophils/100 WBC (Bld) 0.3 % Normal . [facility] Comment on above: Performed By: #### C MP, CBC, MG, TROP, BNP #### [address] Eosinophils (Bld) [#/Vol] 0.5 10*3/uL High 0.0-0.45 [facility] Comment on above: Performed By: #### C MP, CBC, MG, TROP, BNP #### [address] Eosinophils/100 WBC (Bld) 3.4 % Normal . [facility] Comment on above: Performed By: #### C MP, CBC, MG, TROP, BNP #### [address] Erythrocyte distribution width (RBC) [Ratio] 16.3 % High 12.0-14.8 [facility] Comment on above: Performed By: #### C MP, CBC, MG, TROP, BNP #### [address] Hematocrit (Bld) [Volume fraction] 36.1 % Low 38.8-50.0 [facility] Comment on above: Performed By: #### C MP, CBC, MG, TROP, BNP #### [address] Hemoglobin (Bld) [Mass/Vol] 11.8 g/dL Low 13.0-17.0 [facility] Comment on above: Performed By: #### C MP, CBC, MG, TROP, BNP #### [address] Lymphocytes (Bld) [#/Vol] 0.9 10*3/uL Low 1.00-4.8 [facility] Comment on above: Performed By: #### C MP, CBC, MG, TROP, BNP #### [address] Lymphocytes/100 WBC (Bld) 6.1 % Normal . [facility] Comment on above: Performed By: #### C MP, CBC, MG, TROP, BNP #### [address] MCH (RBC) [Entitic mass] 27.2 pg Low 27.5-35.2 [facility] Comment on above: Performed By: #### C MP, CBC, MG, TROP, BNP #### [address] MCV (RBC) [Entitic vol] 83.5 fL Normal 83.5-101 [facility] Comment on above: Performed By: #### C MP, CBC, MG, TROP, BNP #### [address] Mean Corpuscular HGB Conc 32.6 g/dL Normal 32.5-35.6 [facility] Comment on above: Performed By: #### C MP, CBC, MG, TROP, BNP #### [address] Monocytes (Bld) [#/Vol] 1.5 10*3/uL High 0.0-0.8 [facility] Comment on above: Performed By: #### C MP, CBC, MG, TROP, BNP #### [address] Monocytes/100 WBC (Bld) 10.1 % Normal . [facility] Comment on above: Performed By: #### C MP, CBC, MG, TROP, BNP #### [address] Neutrophils (Bld) [#/Vol] 12.3 10*3/uL High 1.8-7.7 [facility] Comment on above: Performed By: #### C MP, CBC, MG, TROP, BNP #### [address] Neutrophils/100 WBC (Bld) 80.1 % Normal . [facility] Comment on above: Performed By: #### C MP, CBC, MG, TROP, BNP #### [address] Nucleated RBC/100 WBC (Bld) [Ratio] 0.1 % Normal 0-0.5 [facility] Comment on above: Performed By: #### C MP, CBC, MG, TROP, BNP #### [address] Platelet mean volume (Bld) [Entitic vol] 7.3 fL Normal 6.6-10.1 [facility] Comment on above: Performed By: #### C MP, CBC, MG, TROP, BNP #### [facility] [address] [place] [address] Platelets (Bld) [#/Vol] 249 10*3/uL Normal 150-450 [facility] Comment on above: Performed By: #### C MP, CBC, MG, TROP, BNP #### [address] RBC (Bld) [#/Vol] 4.32 10*6/uL Normal 3.90-5.60 [facility] Comment on above: Performed By: #### C MP, CBC, MG, TROP, BNP #### [address] WBC (Bld) [#/Vol] 15.3 10*3/uL High 4.5-11.0 [facility] Comment on above: Performed By: #### C MP, CBC, MG, TROP, BNP #### [address] Comprehensive Metabolic Pane babatunde 08-18-2020 Albumin [Mass/Vol] 2.7 g/dL Low 3.2-5.5 [facility] Comment on above: Performed By: #### C MP, CBC, MG, TROP, BNP #### [address] Albumin/Globulin [Mass ratio] 0.6 {ratio} Normal [facility] Comment on above: Performed By: #### C MP, CBC, MG, TROP, BNP #### [address] ALP [Catalytic activity/Vol] 88 U/L Normal 32-92 [facility] Comment on above: Performed By: #### C MP, CBC, MG, TROP, BNP #### [address] ALT [Catalytic activity/Vol] 13 U/L Normal 10-60 [facility] Comment on above: Performed By: #### C MP, CBC, MG, TROP, BNP #### [facility] [address] AST [Catalytic activity/Vol] 16 U/L Normal 10-42 [facility] Comment on above: Performed By: #### C MP, CBC, MG, TROP, BNP #### [facility] [address] [place] [address] Bilirubin [Mass/Vol] 0.7 mg/dL Normal 0.3-1.2 [facility] Comment on above: Performed By: #### C MP, CBC, MG, TROP, BNP #### [address] Calcium [Mass/Vol] 8.9 mg/dL Normal 8.2-10.2 [facility] Comment on above: Performed By: #### C MP, CBC, MG, TROP, BNP #### [address] Chloride [Moles/Vol] 95 mmol/L Normal 95-114 [facility] Comment on above: Performed By: #### C MP, CBC, MG, TROP, BNP #### [facility] [address] [place] [address] CO2 [Moles/Vol] 22.6 mmol/L Normal 22.0-30.0 [facility] Comment on above: Performed By: #### C MP, CBC, MG, TROP, BNP #### [facility] [address] [place] [address] [place] Creatinine [Mass/Vol] 3.04 mg/dL High 0.64-1.27 [facility] Comment on above: Performed By: #### C MP, CBC, MG, TROP, BNP #### [facility] [address] [place] [address] [place] Creatinine Clr Calc Pharmacy 38.57 [facility] Comment on above: Performed By: #### C MP, CBC, MG, TROP, BNP #### [facility] [address] [place] [address] Estimated GFR ( Camilla 26 [facility] Comment on above: Result Comment: GFR estimated reference range: According to KDOQI guidelines, <60 ml/min/1.73m2 is sufficient to diagnose a patient with chronic kidney disease. Performed By: #### C MP, CBC, MG, TROP, BNP #### [facility] [address] Estimated GFR (Non- Am 21 Normal [facility] Comment on above: Performed By: #### C MP, CBC, MG, TROP, BNP #### [facility] [address] Globulin (S) [Mass/Vol] 4.4 g/dL [facility] Comment on above: Performed By: #### C MP, CBC, MG, TROP, BNP #### [address] Glucose [Mass/Vol] 512 mg/dL Off scale high 70-100 [facility] Comment on above: Result Comment: Resu lts called at 1659 on 08/18/20 Random Glucose Reference Range is dependent on time and content of last meal. Glucose of more than 200 mg/dL in a nonstressed, ambulatory subject supports the diagnosis of Diabetes Mellitus. ADA recommended reference range Performed By: #### C MP, CBC, MG, TROP, BNP #### [address] Potassium [Moles/Vol] 4.2 mmol/L Normal 3.5-5.1 [facility] Comment on above: Performed By: #### C MP, CBC, MG, TROP, BNP #### [address] Protein [Mass/Vol] 7.1 g/dL Normal 6.1-7.9 [facility] Comment on above: Performed By: #### C MP, CBC, MG, TROP, BNP #### [address] Sodium [Moles/Vol] 128 mmol/L Low 136-146 [facility] Comment on above: Performed By: #### C MP, CBC, MG, TROP, BNP #### [address] [place] [address] [place] Urea nitrogen [Mass/Vol] 27 mg/dL High 9- [facility] Comment on above: Performed By: #### C MP, CBC, MG, TROP, BNP #### [place] [id number] [facility] Creatinine and Glomerular fi ltration rate.predicted panel (S/P/Bld)on 08-18-2020 Creatinine [Mass/Vol] 3.04 mg/dL 0.64-1.27 [facility] ECG 12 lead ECGon 08-18-2020 ECG 12 lead ECG [facility] Main [place] [address] [place] [address] Electrocardiograph Report Signed Patient: Rashard Lyman MR#: [id number] : 1960 Acct:[id number] Age/Sex: 60 / M ADM Date: 08/18/20 Loc: Room: [address] [place] [address] Type: ADM IN Attending Dr: Eugene Morel [...] was found Confirmed by ADRIA PABON DO ([id number]) on 08/19/2020 10:02:40 AM Referred By: Electronically Signed By:ADRIA PABON DO Transcribed By: MUS Dictated By: Adria Pabon DO 08/18/20 1539 Signed By: 08/19/20 1002 Normal [facility] Eosinophils Auto (Bld) [#/Vo l]on 08-18-2020 Eosinophils (Bld) [#/Vol] 0.5 10*3/uL 0.0-0.45 [facility] Eosinophils/100 WBC Auto (Bl d)on 08-18-2020 Eosinophils/100 WBC (Bld) 3.4 % [facility] Erythrocyte distribution wid th Auto (RBC) [Ratio]on 08-18-2020 Erythrocyte distribution width (RBC) [Ratio] 16.3 % 12.0-14.8 [facility] Estimated glomerular filtrat ion rate (GFR) non- Americanon 08-18-2020 GFR/1.73 sq M.predicted among non-blacks MDRD (S/P/Bld) [Vol rate/Area] 21 mL/Min [facility] Globulin Calc (S) [Mass/Vol] on 08-18-2020 Globulin (S) [Mass/Vol] 4.4 g/dL [facility] Glucose Glucometer (BldC) [M ass/Vol]on 08-18-2020 Glucose [Mass/Vol] 388 mg/dL [facility] Comment on above: Random Glucose Refer ence Range is dependent on time and content of last meal. Glucose of more than 200 mg/dL in a nonstressed, ambulatory subject supports the diagnosis of Diabetes Mellitus. Glucose Poct Glucometerson 0 08-18-2020 Glucose [Mass/Vol] 388 mg/dL Normal [facility] Comment on above: Result Comment: [place] om Glucose Reference Range is dependent on time and content of last meal. Glucose of more than 200 mg/dL in a nonstressed, ambulatory subject supports the diagnosis of Diabetes Mellitus. PERFORMED BY: [place] [address] PATHOLOGIST METER MAKER JORDAN RODRIGUEZ M.D. Performed By: #### C MP, CBC, MG, TROP, BNP #### [address] Hematocrit Auto (Bld) [Volum e fraction]on 08-18-2020 Hematocrit (Bld) [Volume fraction] 36.1 % 38.8-50.0 [facility] Laboratory - Chemistry and C hemistry - challengeon 08-18-2020 CO2 [Moles/Vol] 25.7 mmol/L 24.0-29.0 [facility] HCO3 (Bld) [Moles/Vol] 24.3 mmol/L 23.0-29.0 [facility] Magnesium [Mass/Vol] 2.2 mg/dL 1.6-2.6 [facility] Natriuretic peptide B (Bld) [Mass/Vol] 48.0 pg/mL 5-100 [facility] Laboratory - Coagulationon 0 08-18-2020 PT Coag (PPP) [Time] 11.7 s 9.0-12.9 [facility] Laboratory - Hematology and Cell countson 08-18-2020 Nucleated RBC/100 WBC (Bld) [Ratio] 0.1 % 0-0.5 [facility] Lymphocytes Auto (Bld) [#/Vo l]on 08-18-2020 Lymphocytes (Bld) [#/Vol] 0.9 10*3/uL 1.00-4.8 [facility] Lymphocytes/100 WBC Auto (Bl d)on 08-18-2020 Lymphocytes/100 WBC (Bld) 6.1 % [facility] MCH Auto (RBC) [Entitic mass ]on 08-18-2020 MCH (RBC) [Entitic mass] 27.2 pg 27.5-35.2 [facility] MCHC Auto (RBC) [Mass/Vol]on 08-18-2020 MCHC (RBC) [Mass/Vol] 32.6 g/dL 32.5-35.6 [facility] MCV Auto (RBC) [Entitic vol] on 08-18-2020 MCV (RBC) [Entitic vol] 83.5 fL 83.5-101 [facility] Magnesiumon 08-18-2020 Magnesium [Mass/Vol] 2.2 mg/dL Normal 1.6-2.6 [facility] Comment on above: Result Comment: PERF ORMED BY: [place] [address] PATHOLOGIST METER MAKER JORDAN RODRIGUEZ M.D. Performed By: #### C MP, CBC, MG, TROP, BNP #### [address] Monocytes Auto (Bld) [#/Vol] on 08-18-2020 Monocytes (Bld) [#/Vol] 1.5 10*3/uL 0.0-0.8 [facility] Monocytes/100 WBC Auto (Bld) on 08-18-2020 Monocytes/100 WBC (Bld) 10.1 % [facility] Neutrophils Auto (Bld) [#/Vo l]on 08-18-2020 Neutrophils (Bld) [#/Vol] 12.3 10*3/uL 1.8-7.7 [facility] Neutrophils/100 WBC Auto (Bl d)on 08-18-2020 Neutrophils/100 WBC (Bld) 80.1 % [facility] No Panel Informationon 08-18 Respiratory Panel (PCR) [facility] Blood Gas Critical Value See comment [facility] Comment on above: Critical Value fonseca d on: 08/18/2020 at 17:44 Blood Gas Sample Site Venous [facility] FiO2 21 % [facility] Venous Blood Base Excess -1.5 mmol/L -3.0-3.0 [facility] Venous Blood Oxygen Content 4.1 mmol/L 6.6-9.7 [facility] Venous Blood Oxygen Saturation 53.3 % 73.0-76.0 [facility] Venous Blood Partial Pressure CO2 45.2 mm[Hg] 38.0-50.0 [facility] Venous Blood Partial Pressure O2 24.4 mm[Hg] 35.0-45.0 [facility] Venous Blood pH 7.35 7.32-7.43 [facility] Estimated GFR () 26 mL/Min [facility] Comment on above: GFR estimated refere nce range: According to KDOQI guidelines, <60 ml/min/1.73m2 is sufficient to diagnose a patient with chronic kidney disease. Pharmacy Creatinine Clearance (Chem 38.57 [facility] Platelet mean volume Auto (B ld) [Entitic vol]on 08-18-2020 Platelet mean volume (Bld) [Entitic vol] 7.3 fL 6.6-10.1 [facility] Platelet poor plasma interna tional normalized ratio (INR) by coagulation assay (relaton 08-18-2020 INR Coag (PPP) [Relative time] 1.0 {INR} [facility] Comment on above: INR Therapeutic [...] 08-18-2020 Platelets (Bld) [#/Vol] 249 10*3/uL 150-450 [facility] Protein [Mass/volume] in Ser um or Plasmaon 08-18-2020 Protein [Mass/Vol] 7.1 g/dL 6.1-7.9 [facility] RBC Auto (Bld) [#/Vol]on RBC (Bld) [#/Vol] 4.32 10*6/uL 3.90-5.60 [facility] Respiratory (Upper) Panel, P CRon 08-18-2020 Respiratory (Upper) Panel, PCR Adenovirus Not detected Bordetella parapertussis Not detected Chlamydia pneumoniae Not detected Coronavirus 229E Not detected Coronavirus HKU1 Not detected Coronavirus NL63 Not detected Coronavirus OC43 Not detected COVID19 Blank Space -- COVID19 Disclaimer This test was developed and its performance COVID19 Disclaimer characteristics determined by [employer], COVID19 Disclaimer Disease-2019 during the Public Health [...] sooner. COVID19 [employer]claimer [employer]. and validated at [facility] COVID19 [facility]. This has not been FDA cleared or [...] COVID-19 Detected/Not Detected Not detected PERFORMED BY: [place] [address] PATHOLOGIST METER MAKER JORDAN RODRIGUEZ M.D. Normal [facility] Comment on above: Performed By: #### C MP, CBC, MG, TROP, BNP #### [address] Serum or plasma alanine gomez otransferase measurement without P-5'-P (enzymatic activion 08-18-2020 ALT No additional P-5'-P [Catalytic activity/Vol] 13 U/L 1060 [facility] Serum or plasma albumin/glob ulin mass ratioon 08-18-2020 Albumin/Globulin [Mass ratio] 0.6 {ratio} [facility] Serum or plasma alkaline kayode sphatase measurement (enzymatic activity/volume)on 08-18-2020 ALP [Catalytic activity/Vol] 88 U/L 3292 [facility] Serum or plasma aspartate am inotransferase measurement (enzymatic activity/volume)on 08-18-2020 AST [Catalytic activity/Vol] 16 U/L 1042 [facility] Serum or plasma calcium joel urement (mass/volume)on 08-18-2020 Calcium [Mass/Vol] 8.9 mg/dL 8.2-10.2 [facility] Serum or plasma cardiac trop onin I measurement (mass/volume)on 08-18-2020 Troponin I.cardiac [Mass/Vol] ng/mL 0-0.02 [facility] Comment on above: [place] Cut off value > or equal to 0.03 ng/mL in conjunction with clinical conditions of myocardial infarction.(www.escardio.org/guidelines) Serum or plasma chloride faraz surement (moles/volume)on 08-18-2020 Chloride [Moles/Vol] 95 mmol/L 95-114 [facility] Serum or plasma glucose joel urement (mass/volume)on 08-18-2020 Glucose [Mass/Vol] 512 mg/dL 70-100 [facility] Comment on above: Results calledat 165 9 on 08/18/20 ADA recommended reference rangeRandom Glucose Reference Range is dependent on time and content of last meal. Glucose of more than 200 mg/dL in a nonstressed, ambulatory subject supports the diagnosis of Diabetes Mellitus. Serum or plasma potassium me asurement (moles/volume)on 08-18-2020 Potassium [Moles/Vol] 4.2 mmol/L 3.5-5.1 [facility] Serum or plasma sodium measu rement (moles/volume)on 08-18-2020 Sodium [Moles/Vol] 128 mmol/L 136-146 [facility] Serum or plasma total biliru bin measurement (mass/volume)on 08-18-2020 Bilirubin [Mass/Vol] 0.7 mg/dL 0.3-1.2 [facility] Serum or plasma total carbon dioxide measurement (moles/volume)on 08-18-2020 CO2 [Moles/Vol] 22.6 mmol/L 22.0-30.0 [facility] Serum or plasma urea nitroge n measurement (mass/volume)on 08-18-2020 Urea nitrogen [Mass/Vol] 27 mg/dL 01-19 [facility] Liat Ag Negativeon 08-19-19 Liat Ag Negative Negative Normal Negative [facility] Comment on above: Result Comment: This is a duplicate Liat SARS Antigen (AGUSTINA) result to be used for statistical tracking purpose only. PERFORMED BY: [place] [address] PATHOLOGIST METER MAKER JORDAN RODRIGUEZ M.D. Performed By: #### C OVID-19 LIAT, SOFIANEG #### [facility] [address] [place] [address] Troponin I(TnI)on 08-18-2020 Troponin I.cardiac [Mass/Vol] ng/mL Normal 0-0.02 [facility] Comment on above: Result Comment: [place] Cut off value > or equal to 0.03 ng/mL in conjunction with clinical conditions of myocardial infarction. (www.escardio.org/guidelines) PERFORMED BY: [place] [address] PATHOLOGIST METER MAKER JORDAN RODRIGUEZ M.D. Performed By: #### C MP, CBC, MG, TROP, BNP #### [facility] [address] [place] [address] Venous Blood Gason CO2 [Moles/Vol] 25.7 mmol/L Normal 24.0-29.0 [facility] Comment on above: Performed By: #### V BG #### Point of Care testing , HCO3 (Bld) [Moles/Vol] 24.3 mmol/L Normal 23.0-29.0 [facility] Comment on above: Performed By: #### V BG #### Point of Care testing , Respiratory Critical Normal [facility] Comment on above: Result Comment: Crit ical Value called on: 08/18/2020 at 17:44 PERFORMED BY: [place] [address] PATHOLOGIST METER MAKER JORDAN RODRIGUEZ M.D. Performed By: #### V BG #### Point of Care testing , VBG Base Excess -1.5 mmol/L Normal -3.0-3.0 [facility] Comment on above: Performed By: #### V BG #### Point of Care testing , VBG Draw Site Venous Normal [facility] Comment on above: Performed By: #### V BG #### Point of Care testing , VBG Frac Inspired O2 21 % Normal [facility] Comment on above: Performed By: #### V BG #### Point of Care testing , VBG O2 Content 4.1 mmol/L Low 6.6-9.7 [facility] Comment on above: Performed By: #### V BG #### Point of Care testing , VBG Oxygen Saturation 53.3 % Off scale low 73.0-76.0 [facility] Comment on above: Performed By: #### V BG #### Point of Care testing , VBG PCO2 45.2 mm[Hg] Normal 38.0-50.0 [facility] Comment on above: Performed By: #### V BG #### Point of Care testing , VBG PH Venous PH 7.35 Normal 7.32-7.43 [facility] Comment on above: Performed By: #### V BG #### Point of Care testing , VBG PO2 24.4 mm[Hg] Low 35.0-45.0 [facility] Comment on above: Performed By: #### V BG #### Point of Care testing , XR chest 1V portableon 08-18 XR chest 1V portable [place] [address] XRay Report Signed Patient: Rashard Lyman MR#: [id number] : 1960 Acct:[id number] Age/Sex: 60 / M ADM Date: 08/18/20 Loc: ER Room: Type: [facility] ER Attending Dr: Ordering Provider: Mariana Basilio [...] Chitra Brantley M.D.08/18/2020 4:24 PM Dictation Location: [place] [address] Transcribed By: [facility] 08/18/201623 Dictated By: Chitra Brantley MD 08/18/201622 Signed By: 08/18/201623 [facility] CBC COMPLETE BLOOD COUNTon 0 07-22-2020 Erythrocyte distribution width (RBC) [Ratio] 15.0 % Normal 11.5-15.0 [facility] Comment on above: Order Comment: No: D o not add to previous draw Performed By: #### 8 [id number] #### [facility] [address] [place] [address], [facility] Hematocrit (Bld) [Volume fraction] 32.4 % Low 39.0-50.0 [facility] Comment on above: Order Comment: No: D o not add to previous draw Performed By: #### 8 [id number] #### [facility] [address] [place] [address], [facility] Hemoglobin (Bld) [Mass/Vol] 9.5 g/dL Low 13.0-17.0 [facility] Comment on above: Order Comment: No: D o not add to previous draw Performed By: #### 8 [id number] #### [facility] [address] [place] [address], [facility] MCH (RBC) [Entitic mass] 26.7 pg Low 27.0-33.0 [facility] Comment on above: Order Comment: No: D o not add to previous draw Performed By: #### 8 [id number] #### [facility] [address] [place] [address], [facility] MCHC (RBC) [Mass/Vol] 29.3 g/dL Low 32.0-35.0 [facility] Comment on above: Order Comment: No: D o not add to previous draw Performed By: #### 8 [id number] #### [facility] [address] [place] [address], [facility] MCV (RBC) [Entitic vol] 91.0 fL Normal 82.0-98.0 [facility] Comment on above: Order Comment: No: D o not add to previous draw Performed By: #### 8 [id number] #### [facility] [address] [place] [address], [facility] Nucleated RBC/100 WBC (Bld) [Ratio] 0 % Normal 0-0 [facility] Comment on above: Order Comment: No: D o not add to previous draw Performed By: #### 8 [id number] #### [facility] [address] [place] [address], [facility] PLAT CNT 276 10*3/uL Normal 150-400 [facility] Comment on above: Order Comment: No: D o not add to previous draw Performed By: #### 8 [id number] #### [facility] [address] [place] [address], [facility] RBC (Bld) [#/Vol] 3.56 10*6/uL Low 4.20-5.70 [facility] Comment on above: Order Comment: No: D o not add to previous draw Performed By: #### 8 [id number] #### [facility] [address] [place] [address], [facility] WBC (Bld) [#/Vol] 8.61 10*3/uL Normal 4.00-10.60 [facility] Comment on above: Order Comment: No: D o not add to previous draw Performed By: #### 8 [id number] #### [facility] [address] [place] [address], [facility] COMP METABOLIC PANELon 07-22 Albumin [Mass/Vol] 2.7 g/dL Low 3.5-5.7 [facility] Comment on above: Order Comment: No: D o not add to previous draw Performed By: #### 8 [id number] #### [facility] [address] [place] [address], [place] ALKALINE PHOSPH 70 IU/L Normal 34-104 [facility] Comment on above: Order Comment: No: D o not add to previous draw Performed By: #### 8 [id number] #### [facility] [address] [place] [address], [place] ALT [Catalytic activity/Vol] 4 U/L Low 7-52 [facility] Comment on above: Order Comment: No: D o not add to previous draw Performed By: #### 8 [id number] #### [facility] [address] [place] [address], [place] AST [Catalytic activity/Vol] 15 U/L Normal 13-39 [facility] Comment on above: Order Comment: No: D o not add to previous draw Performed By: #### 8 [id number] #### [facility] [address] [place] [address], [place] Bilirubin [Mass/Vol] 0.2 mg/dL Low 0.3-1.0 [facility] Comment on above: Order Comment: No: D o not add to previous draw Performed By: #### 8 [id number] #### [facility] [address] [place] [address], [place] Calcium [Mass/Vol] 8.9 mg/dL Normal 8.6-10.3 [facility] Comment on above: Order Comment: No: D o not add to previous draw Performed By: #### 8 [id number] #### [facility] [address] [place] [address], [place] Chloride [Moles/Vol] 109 mmol/L High 98-107 [facility] Comment on above: Order Comment: No: D o not add to previous draw Performed By: #### 8 [id number] #### [facility] [address] [place] [address], [place] CO2 [Moles/Vol] 24 mmol/L Normal 21-31 [facility] Comment on above: Order Comment: No: D o not add to previous draw Performed By: #### 8 [id number] #### [facility] [address] [place] [address], [place] Creatinine [Mass/Vol] 3.39 mg/dL High 0.70-1.30 [facility] Comment on above: Order Comment: No: D o not add to previous draw Performed By: #### 8 [id number] #### [facility] [address] [place] [address], [place] eGFR- 23 ml/min/1.73sq m Abnormal >60 [facility] Comment on above: Order Comment: No: D o not add to previous draw Performed By: #### 8 [id number] #### [facility] [address] [place] [address], [place] eGFR- non- 19 ml/min/1.73sq m Abnormal >60 [facility] Comment on above: Order Comment: No: D o not add to previous draw Performed By: #### 8 [id number] #### [facility] [address] [place] [address], [place] Glucose [Mass/Vol] 90 mg/dL Normal 70-100 [facility] Comment on above: Order Comment: No: D o not add to previous draw Performed By: #### 8 [id number] #### [facility] [address] [place] [address], [place] Potassium [Moles/Vol] 4.4 mmol/L Normal 3.5-5.1 [facility] Comment on above: Order Comment: No: D o not add to previous draw Performed By: #### 8 [id number] #### [facility] [address] [place] [address], [place] Protein [Mass/Vol] 5.9 g/dL Low 6.0-8.3 [facility] Comment on above: Order Comment: No: D o not add to previous draw Performed By: #### 8 [id number] #### [facility] [address] [place] [address], [place] Sodium [Moles/Vol] 140 mmol/L Normal 136-145 [facility] Comment on above: Order Comment: No: D o not add to previous draw Performed By: #### 8 [id number] #### [facility] [address] [place] [address], [place] Urea nitrogen [Mass/Vol] 35 mg/dL High 7-25 [facility] Comment on above: Order Comment: No: D o not add to previous draw Performed By: #### 8 [id number] #### [facility] [address] [place] [address], [place] POC GLUCOSE LABon 07-22-2020 Glucose [Mass/Vol] 192 mg/dL High 70-100 [facility] Comment on above: Performed By: #### 8 [id number] #### [facility] [address] [place] [address], [place] Glucose [Mass/Vol] 95 mg/dL Normal 70-100 [facility] Comment on above: Performed By: #### 5 7307, 46887 #### [facility] [address] [place] [address], [place] Glucose [Mass/Vol] 123 mg/dL High 70-100 [facility] Comment on above: Performed By: #### 8 [id number] ####[facility] [place] [address], [place] ARTERIAL BLOOD GAS WITH ICAo n 07-21-2020 BASE EXCESS -2 mmol/L Normal -2-3 [facility] Comment on above: Performed By: #### 8 5499 #### [facility] [address] [place] [address], [place] [employer] FOCUS Normal [facility] Comment on above: Performed By: #### 8 [id number] #### [facility] [address] [place] [address], [place] HCO3 (Bld) [Moles/Vol] 24 mmol/L Normal 21-28 [facility] Comment on above: Performed By: #### 8 [id number] #### [facility] [address] [place] [address], [place] IONIZED CALCIUM 1.25 mmol/L Normal 1.13-1.32 [facility] Comment on above: Performed By: #### 8 [id number] #### [facility] [address] [place] [address], [place] LPM 4.0 LPM Normal [facility] Comment on above: Performed By: #### 8 5499 #### [facility] [address] [place] [address], [place] MODALITY BIPAP Normal [facility] Comment on above: Performed By: #### 8 5499 #### [facility] [address] [place] [address], [place] Oxygen (Bld) [Partial pressure] 91 mm[Hg] Normal 83-108 [facility] Comment on above: Performed By: #### 8 [id number] #### [facility] [address] [place] [address], [place] Oxygen saturation in Blood 95.9 % Normal 94.0-97.0 [facility] Comment on above: Performed By: #### 8 5499 #### [facility] [address] [place] [address], [place] PCO2 47 mmHg High 35-45 [facility] Comment on above: Performed By: #### 8 5499 #### [facility] [address] [place] [address], [place] PEEP 8.0 CMH20 Normal [facility] Comment on above: Performed By: #### 8 5499 #### [facility] [address] [place] [address], [facility] pH (Bld) 7.32 [pH] Low 7.35-7.45 [facility] Comment on above: Performed By: #### 8 [id number] #### [facility] [address] [place] [address], [facility] PRESSURE SUPPORT 16 Normal [facility] Comment on above: Performed By: #### 8 [id number] #### [facility] [address] [place] [address], [facility] BASE EXCESS -3 mmol/L Low -2-3 [facility] Comment on above: Performed By: #### 3 0318 #### [facility] [address] [place] [address], [facility] [employer] NASAL CANNULA Normal [facility] Comment on above: Performed By: #### 3 0318 #### [facility] [address] [place] [address], [facility] HCO3 (Bld) [Moles/Vol] 25 mmol/L Normal 21-28 [facility] Comment on above: Performed By: #### 3 0318 #### [facility] [address] [place] [address], [facility] IONIZED CALCIUM 1.26 mmol/L Normal 1.13-1.32 [facility] Comment on above: Performed By: #### 3 0318 #### [facility] [address] [place] [address], [place] LPM 2.0 LPM Normal [facility] Comment on above: Performed By: #### 3 0318 #### [facility] [address] [place] [address], [facility] Oxygen (Bld) [Partial pressure] 92 mm[Hg] Normal 83-108 [facility] Comment on above: Performed By: #### 3 0318 #### [facility] [address] [place] [address], [facility] Oxygen saturation in Blood 95.7 % Normal 94.0-97.0 [facility] Comment on above: Performed By: #### 3 8 #### [facility] [address] [place] [address], [place] PCO2 54 mmHg High 35-45 [facility] Comment on above: Performed By: #### 3 8 #### [facility] [address] [place] [address], [place] pH (Bld) 7.27 [pH] Low 7.35-7.45 [facility] Comment on above: Performed By: #### 3 8 #### [facility] [address] [place] [address], [facility] BASIC METABOLIC PANELon - Calcium [Mass/Vol] 9.0 mg/dL Normal 8.6-10.3 [facility] Comment on above: Order Comment: No: D o not add to previous drawPt not in room rn will return when back. Performed By: #### 3 1943 #### [facility] [address] [place] [address], [place] Chloride [Moles/Vol] 106 mmol/L Normal 98-107 [facility] Comment on above: Order Comment: No: D o not add to previous drawPt not in room rn will return when back. Performed By: #### 3 1943 #### [facility] [address] [place] [address], [place] CO2 [Moles/Vol] 25 mmol/L Normal 21-31 [facility] Comment on above: Order Comment: No: D o not add to previous drawPt not in room rn will return when back. Performed By: #### 3 1943 #### [facility] [address] [place] [address], [place] Creatinine [Mass/Vol] 3.75 mg/dL High 0.70-1.30 [facility] Comment on above: Order Comment: No: D o not add to previous drawPt not in room rn will return when back. Performed By: #### 3 1943 #### [facility] [address] [place] [address], [facility] eGFR- 20 ml/min/1.73sq m Abnormal >60 [facility] Comment on above: Order Comment: No: D o not add to previous drawPt not in room rn will return when back. Performed By: #### 3 1943 #### [facility] [address] [place] [address], [facility] eGFR- non- 17 ml/min/1.73sq m Abnormal >60 [facility] Comment on above: Order Comment: No: D o not add to previous drawPt not in room rn will return when back. Performed By: #### 3 1943 #### [facility] [address] [place] [address], [facility] Glucose [Mass/Vol] 132 mg/dL High 70-100 [facility] Comment on above: Order Comment: No: D o not add to previous drawPt not in room rn will return when back. Performed By: #### 3 1943 #### [facility] [address] [place] [address], [facility] Potassium [Moles/Vol] 5.0 mmol/L Normal 3.5-5.1 [facility] Comment on above: Order Comment: No: D o not add to previous drawPt not in room rn will return when back. Performed By: #### 3 1943 #### [facility] [address] [place] [address], [facility] Sodium [Moles/Vol] 138 mmol/L Normal 136-145 [facility] Comment on above: Order Comment: No: D o not add to previous drawPt not in room rn will return when back. Performed By: #### 3 1943 #### [facility] [address] [place] [address], [facility] Urea nitrogen [Mass/Vol] 37 mg/dL High 7-25 [facility] Comment on above: Order Comment: No: D o not add to previous drawPt not in room rn will return when back. Performed By: #### 3 1944 #### [facility] [address] [place] [address], [facility] CBC COMPLETE BLOOD COUNTon 07-21-2020 Erythrocyte distribution width (RBC) [Ratio] 15.0 % Normal 11.5-15.0 [facility] Comment on above: Order Comment: No: D o not add to previous drawPt not in room rn will return when back. Performed By: #### 8 [id number] #### [facility] [address] [place] [address], [facility] Hematocrit (Bld) [Volume fraction] 33.9 % Low 39.0-50.0 [facility] Comment on above: Order Comment: No: D o not add to previous drawPt not in room rn will return when back. Performed By: #### 8 [id number] #### [facility] [address] [facility] [address], [facility] Hemoglobin (Bld) [Mass/Vol] 9.9 g/dL Low 13.0-17.0 [facility] Comment on above: Order Comment: No: D o not add to previous drawPt not in room rn will return when back. Performed By: #### 8 [id number] #### [facility] [address] [place] [address], [facility] MCH (RBC) [Entitic mass] 26.9 pg Low 27.0-33.0 [facility] Comment on above: Order Comment: No: D o not add to previous drawPt not in room rn will return when back. Performed By: #### 8 [id number] #### [facility] [address] [place] [address], [facility] MCHC (RBC) [Mass/Vol] 29.2 g/dL Low 32.0-35.0 [facility] Comment on above: Order Comment: No: D o not add to previous drawPt not in room rn will return when back. Performed By: #### 8 5499 #### [facility] [address] [facility] [place] [address], [facility] MCV (RBC) [Entitic vol] 92.1 fL Normal 82.0-98.0 [facility] Comment on above: Order Comment: No: D o not add to previous drawPt not in room rn will return when back. Performed By: #### 8 [id number] #### [facility] [address] Nucleated RBC/100 WBC (Bld) [Ratio] 0 % Normal 0-0 [facility] Comment on above: Order Comment: No: D o not add to previous drawPt not in room rn will return when back. Performed By: #### 8 [id number] #### [facility] [address] [facility] [place] [address], [facility] PLAT CNT 288 10*3/uL Normal 150-400 [facility] Comment on above: Order Comment: No: D o not add to previous drawPt not in room rn will return when back. Performed By: #### 8 5499 #### [facility] [address] [facility] [place] [address], [facility] RBC (Bld) [#/Vol] 3.68 10*6/uL Low 4.20-5.70 [facility] Comment on above: Order Comment: No: D o not add to previous drawPt not in room rn will return when back. Performed By: #### 8 5499 #### [facility] [address] [facility] [place] [address], [facility] WBC (Bld) [#/Vol] 9.51 10*3/uL Normal 4.00-10.60 [facility] Comment on above: Order Comment: No: D o not add to previous drawPt not in room rn will return when back. Performed By: #### 8 [id number] #### [address] CHEST WO CONTRASTon 07-21 CT CHEST WO CONTRAST [facility] Department of Radiology [address] [place] [id number] Patient Name: RASHARD LYMAN : 1960 Sex: M Age: Race: White Pt. Location: [id number] Patient Status: I Ordered Date: 07/21/2020 6:00:00 [...] pneumonia. Electronically signed: Manuel Saldaña. Transcribed by: [email or web address], User Resident: Electronically Signed by: MANUEL SALDAÑA @ 07/21/2020 08:38 AM Normal [facility] Comment on above: Order Comment: Left Peural Effusion POC GLUCOSE LABon 07-21-2020 Glucose [Mass/Vol] 134 mg/dL High 70-100 [facility] Comment on above: Performed By: #### 5 0103 #### [facility] [address] [facility] [place] [address], [place] Glucose [Mass/Vol] 88 mg/dL Normal 70-100 [facility] Comment on above: Performed By: #### 8 [id number] #### [facility] [address] [place] [address], [place] Glucose [Mass/Vol] 110 mg/dL High 70-100 [facility] Comment on above: Performed By: #### 8 5499 #### [facility] [address] [place] [address], [place] Glucose [Mass/Vol] 118 mg/dL High 70-100 [facility] Comment on above: Performed By: #### 5 7307, 85[address] #### [facility] [address] [place] [address], [facility] Glucose [Mass/Vol] 137 mg/dL High 70-100 [facility] Comment on above: Performed By: #### 5 7307, 61900 #### [facility] [address] [place] [address], [facility] BASIC METABOLIC PANELon 03-2 Calcium [Mass/Vol] 8.4 mg/dL Low 8.6-10.3 [facility] Comment on above: Order Comment: No: D o not add to previous draw Performed By: #### 8 [id number] #### [facility] [address] [place] [address], [facility] Chloride [Moles/Vol] 107 mmol/L Normal 98-107 [facility] Comment on above: Order Comment: No: D o not add to previous draw Performed By: #### 8 [id number] #### [facility] [address] [place] [address], [facility] CO2 [Moles/Vol] 23 mmol/L Normal 21-31 [facility] Comment on above: Order Comment: No: D o not add to previous draw Performed By: #### 8 [id number] #### [facility] [address] [place] [address], [place] Creatinine [Mass/Vol] 3.95 mg/dL High 0.70-1.30 [facility] Comment on above: Order Comment: No: D o not add to previous draw Performed By: #### 8 [id number] #### [facility] [address] [place] [address], [place] eGFR- 19 ml/min/1.73sq m Abnormal >60 [facility] Comment on above: Order Comment: No: D o not add to previous draw Performed By: #### 8 [id number] #### [facility] [address] [place] [address], [place] eGFR- non- 16 ml/min/1.73sq m Abnormal >60 [facility] Comment on above: Order Comment: No: D o not add to previous draw Performed By: #### 8 [id number] #### [facility] [address] [place] [address], [facility] Glucose [Mass/Vol] 110 mg/dL High 70-100 [facility] Comment on above: Order Comment: No: D o not add to previous draw Performed By: #### 8 [id number] #### [facility] [address] [place] [address], [facility] Potassium [Moles/Vol] 4.9 mmol/L Normal 3.5-5.1 [facility] Comment on above: Order Comment: No: D o not add to previous draw Performed By: #### 8 [id number] #### [facility] [address] [place] [id number], [facility] Sodium [Moles/Vol] 137 mmol/L Normal 136-145 [facility] Comment on above: Order Comment: No: D o not add to previous draw Performed By: #### 8 [id number] #### [facility] [address] [place] [address], [facility] Urea nitrogen [Mass/Vol] 37 mg/dL High 7-25 [facility] Comment on above: Order Comment: No: D o not add to previous draw Performed By: #### 8 [id number] #### [facility] [address] [place] [address], [facility] CBC W/DIFFon 07-20-2020 ABS IMM GRANS 0.1 10*3/uL Normal 0.0-0.2 [facility] Comment on above: Order Comment: No: D o not add to previous draw Performed By: #### 8 [id number] #### [facility] [address] [place] [id number], [facility] ABS NEUTROPHILS 5.9 10*3/uL Normal 1.6-7.6 [facility] Comment on above: Order Comment: No: D o not add to previous draw Performed By: #### 8 [id number] #### [facility] [address] [place] [address], [facility] Basophils (Bld) [#/Vol] 0.1 10*3/uL Normal 0.0-0.2 [facility] Comment on above: Order Comment: No: D o not add to previous draw Performed By: #### 8 [id number] #### [facility] [address] [place] [address], [place] Basophils/100 WBC (Bld) 1.0 % Normal 0.0-1.0 [facility] Comment on above: Order Comment: No: D o not add to previous draw Performed By: #### 8 [id number] #### [facility] [address] [place] [address], [facility] Eosinophils (Bld) [#/Vol] 0.4 10*3/uL Normal 0.0-0.5 [facility] Comment on above: Order Comment: No: D o not add to previous draw Performed By: #### 8 [id number] #### [facility] [address] [place] [address], [facility] Eosinophils/100 WBC (Bld) 5.1 % Normal 0.0-6.0 [facility] Comment on above: Order Comment: No: D o not add to previous draw Performed By: #### 8 [id number] #### [facility] [address] [place] [address], [facility] Erythrocyte distribution width (RBC) [Ratio] 15.4 % High 11.5-15.0 [facility] Comment on above: Order Comment: No: D o not add to previous draw Performed By: #### 8 [id number] #### [facility] [address] [place] [id number], [facility] Hematocrit (Bld) [Volume fraction] 35.7 % Low 39.0-50.0 [facility] Comment on above: Order Comment: No: D o not add to previous draw Performed By: #### 8 [id number] #### [facility] [address] [facility] [place] [address], [facility] Hemoglobin (Bld) [Mass/Vol] 10.3 g/dL Low 13.0-17.0 [facility] Comment on above: Order Comment: No: D o not add to previous draw Performed By: #### 8 [id number] #### [facility] [address] [facility] [place] [address], [facility] IMM PLATELET FRAC 0.4 % Low 0.8-6.3 [facility] Comment on above: Order Comment: No: D o not add to previous draw Performed By: #### 8 [id number] #### [facility] [address] [facility] [place] [address], [facility] IMMATURE GRANS 1.1 % High 0.0-1.0 [facility] Comment on above: Order Comment: No: D o not add to previous draw Performed By: #### 8 [id number] #### [facility] [address] [place] [address], [facility] Lymphocytes (Bld) [#/Vol] 0.8 10*3/uL Low 1.2-4.0 [facility] Comment on above: Order Comment: No: D o not add to previous draw Performed By: #### 8 [id number] #### [facility] [address] [facility] [place] [address], [facility] Lymphocytes/100 WBC (Bld) 9.3 % Low 20.0-45.0 [facility] Comment on above: Order Comment: No: D o not add to previous draw Performed By: #### 8 [id number] #### [facility] [address] [place] [address], [facility] MCH (RBC) [Entitic mass] 27.4 pg Normal 27.0-33.0 [facility] Comment on above: Order Comment: No: D o not add to previous draw Performed By: #### 8 [id number] #### [facility] [address] [place] [address], [facility] MCHC (RBC) [Mass/Vol] 28.9 g/dL Low 32.0-35.0 [facility] Comment on above: Order Comment: No: D o not add to previous draw Performed By: #### 8 [id number] #### [facility] [address] [place] [id number], [facility] MCV (RBC) [Entitic vol] 94.9 fL Normal 82.0-98.0 [facility] Comment on above: Order Comment: No: D o not add to previous draw Performed By: #### 8 [id number] #### [facility] [address] [place] [address], [facility] Monocytes (Bld) [#/Vol] 1.1 10*3/uL High 0.1-1.0 [facility] Comment on above: Order Comment: No: D o not add to previous draw Performed By: #### 8 [id number] #### [facility] [address] [place] [address], [facility] MONOS 12.9 % High 5.0-12.0 [facility] Comment on above: Order Comment: No: D o not add to previous draw Performed By: #### 8 [id number] #### [facility] [address] [place] [address], [facility] Neutrophils/100 WBC (Bld) 70.6 % Normal 40.0-72.0 [facility] Comment on above: Order Comment: No: D o not add to previous draw Performed By: #### 8 [id number] #### [facility] [address] [place] [id number], [facility] Nucleated RBC/100 WBC (Bld) [Ratio] 0 % Normal 0-0 [facility] Comment on above: Order Comment: No: D o not add to previous draw Performed By: #### 8 [id number] #### [facility] [address] [place] [address], [facility] PLAT ESTIMATE Normal Normal [facility] Comment on above: Order Comment: No: D o not add to previous draw Result Comment: EDTA smear shows platelet clumping, see platelet estimate Performed By: #### 8 [id number] #### [facility] [address] [place] [address], [facility] RBC (Bld) [#/Vol] 3.76 10*6/uL Low 4.20-5.70 [facility] Comment on above: Order Comment: No: D o not add to previous draw Performed By: #### 8 [id number] #### [facility] [address] [facility] [address], [facility] WBC (Bld) [#/Vol] 8.30 10*3/uL Normal 4.00-10.60 [facility] Comment on above: Order Comment: No: D o not add to previous draw Performed By: #### 8 [id number] #### [facility] [address] [facility] [address], [facility] POC GLUCOSE LABon 07-20-2020 Glucose [Mass/Vol] 110 mg/dL High 70-100 [facility] Comment on above: Performed By: #### 5 0103 #### [facility] [address] [facility] [address], [facility] Glucose [Mass/Vol] 124 mg/dL High 70-100 [facility] Comment on above: Performed By: #### 5 0103 #### [facility] [address] [facility] [address], [facility] Glucose [Mass/Vol] 111 mg/dL High 70-100 [facility] Comment on above: Performed By: #### 5 7307, 18061 #### [facility] [address] [place] [address], [facility] PORTABLE CHEST 1 VIEWon 06-28 PORTABLE CHEST 1 VIEW [facility] Department of Radiology [address] [place] [id number] Patient Name: RASHARD LYMAN : 1960 Sex: M Age: Race: White Pt. Location: [id number] Patient Status: I Ordered Date: 07/20/2020 6:00:00 [...] unchanged Electronically signed: Manuel Saldaña. Transcribed by: [id number], User Resident: Electronically Signed by: MANUEL SALDAÑA @ 07/20/2020 09:07 AM Normal [facility] Comment on above: Order Comment: Evalu ate for Effusion BASIC METABOLIC PANELon 03-2 Calcium [Mass/Vol] 8.4 mg/dL Low 8.6-10.3 [facility] Comment on above: Order Comment: No: D o not add to previous draw Performed By: #### 3 1943 #### [facility] [address] [place] [address], [place] Chloride [Moles/Vol] 104 mmol/L Normal 98-107 [facility] Comment on above: Order Comment: No: D o not add to previous draw Performed By: #### 3 1943 #### [facility] [address] [place] [address], [place] CO2 [Moles/Vol] 24 mmol/L Normal 21-31 [facility] Comment on above: Order Comment: No: D o not add to previous draw Performed By: #### 3 1943 #### [facility] [address] [place] [address], [place] Creatinine [Mass/Vol] 4.15 mg/dL High 0.70-1.30 [facility] Comment on above: Order Comment: No: D o not add to previous draw Performed By: #### 3 1943 #### [facility] [address] [place] [address], [place] eGFR- 18 ml/min/1.73sq m Abnormal >60 [facility] Comment on above: Order Comment: No: D o not add to previous draw Performed By: #### 3 1943 #### [facility] [address] [place] [address], [place] eGFR- non- 15 ml/min/1.73sq m Abnormal >60 [facility] Comment on above: Order Comment: No: D o not add to previous draw Performed By: #### 3 1943 #### [facility] [address] [place] [address], [place] Glucose [Mass/Vol] 180 mg/dL High 70-100 [facility] Comment on above: Order Comment: No: D o not add to previous draw Performed By: #### 3 1943 #### [facility] [address] [place] [address], [facility] Potassium [Moles/Vol] 4.4 mmol/L Normal 3.5-5.1 [facility] Comment on above: Order Comment: No: D o not add to previous draw Performed By: #### 3 1943 #### [facility] [address] [place] [address], [facility] Sodium [Moles/Vol] 135 mmol/L Low 136-145 [facility] Comment on above: Order Comment: No: D o not add to previous draw Performed By: #### 3 1943 #### [facility] [address] [place] [address], [place] Urea nitrogen [Mass/Vol] 37 mg/dL High 7-25 [facility] Comment on above: Order Comment: No: D o not add to previous draw Performed By: #### 3 1943 #### [facility] [address] [place] [address], [facility] CBC COMPLETE BLOOD COUNTon 0 - Erythrocyte distribution width (RBC) [Ratio] 14.8 % Normal 11.5-15.0 [facility] Comment on above: Order Comment: No: D o not add to previous draw Performed By: #### 8 [id number] #### [facility] [address] [place] [address], [place] Hematocrit (Bld) [Volume fraction] 30.9 % Low 39.0-50.0 [facility] Comment on above: Order Comment: No: D o not add to previous draw Performed By: #### 8 5499 #### [facility] [address] [place] [address], [place] Hemoglobin (Bld) [Mass/Vol] 9.0 g/dL Low 13.0-17.0 [facility] Comment on above: Order Comment: No: D o not add to previous draw Performed By: #### 8 5499 #### [facility] [address] [place] [address], [facility] MCH (RBC) [Entitic mass] 26.6 pg Low 27.0-33.0 [facility] Comment on above: Order Comment: No: D o not add to previous draw Performed By: #### 8 5499 #### [facility] [address] [place] [address], [facility] MCHC (RBC) [Mass/Vol] 29.1 g/dL Low 32.0-35.0 [facility] Comment on above: Order Comment: No: D o not add to previous draw Performed By: #### 8 5499 #### [facility] [address] [place] [address], [facility] MCV (RBC) [Entitic vol] 91.4 fL Normal 82.0-98.0 [facility] Comment on above: Order Comment: No: D o not add to previous draw Performed By: #### 8 5499 #### [facility] [address] Nucleated RBC/100 WBC (Bld) [Ratio] 0 % Normal 0-0 [facility] Comment on above: Order Comment: No: D o not add to previous draw Performed By: #### 8 5499 #### [facility] [address] [place] [address], [facility] PLAT CNT 279 10*3/uL Normal 150-400 [facility] Comment on above: Order Comment: No: D o not add to previous draw Performed By: #### 8 5499 #### [facility] [address] [facility] [address], [facility] RBC (Bld) [#/Vol] 3.38 10*6/uL Low 4.20-5.70 [facility] Comment on above: Order Comment: No: D o not add to previous draw Performed By: #### 8 5499 #### [facility] [address] WBC (Bld) [#/Vol] 6.73 10*3/uL Normal 4.00-10.60 [facility] Comment on above: Order Comment: No: D o not add to previous draw Performed By: #### 8 5499 #### [facility] [address] Operative Reporton Operative Report MR#: [id number] [facility] Pt. Name: [place] Latta Room #: 3AB [id number] Discharge Date: Birthdate: 1960 OPERATIVE REPORT DATE OF SURGERY: 07/19/2020 SURGEON: Nima Wynne MD Operative Note Medical Thoracoscopy, lysis of adhesions, pleural biopsy Procedure Date: 07/19/2020 Procedure: Medical Thoracoscopy, pleural biopsies, lysis of adhesions, and chest tube placement Preoperative Diagnosis: Loculated pleural effusion Post-operative Diagnosis: same Surgeons: Nima Wynne MD Senior Software Test Engineer: Davis Pham MD Type of Anesthesia: MAC [...] Wynne MD Date Trans: 07/19/2020 02:43 P/ [id number] cc: Jose Juarez D.O. [facility] [place] [address] Normal [facility] POC GLUCOSE LABon 07-19-2020 Glucose [Mass/Vol] 219 mg/dL High 70-100 [facility] Comment on above: Performed By: #### 5 6815, 56384 #### [facility] [address] [facility] [place] [address], [place] Glucose [Mass/Vol] 152 mg/dL High 70-100 [facility] Comment on above: Performed By: #### 5 9807, 480[address] #### [facility] [address] [facility] [address], [place] Glucose [Mass/Vol] 183 mg/dL High 70-100 [facility] Comment on above: Performed By: #### 5 0103 #### [facility] [address] [place] [address], [facility] Glucose [Mass/Vol] 206 mg/dL High 70-100 [facility] Comment on above: Performed By: #### 8 5499 ####[facility] [place] [address], [facility] Glucose [Mass/Vol] 179 mg/dL High 70-100 [facility] Comment on above: Performed By: #### 5 0103 #### [facility] [address] [place] [address], [facility] PORTABLE CHEST 1 VIEWon 06-28 PORTABLE CHEST 1 VIEW [facility] Department of Radiology [address] [place] [id number] Patient Name: RASHARD LYMAN : 1960 Sex: M Age: Race: White Pt. Location: [address] [place] [address] Patient Status: I Ordered Date: 07/19/2020 2:20:00 [...] infiltration Electronically signed: Pedro Baldwin. Transcribed by: [email or web address], User Resident: PEDRO BALDWIN Electronically Signed by: PEDRO BALDWIN @ 07/19/2020 03:03 PM I personally read this/these film(s) with this resident Normal [facility] Comment on above: Order Comment: Check Chest Tube Position BASIC METABOLIC PANELon 06-28 Calcium [Mass/Vol] 8.4 mg/dL Low 8.6-10.3 [facility] Comment on above: Order Comment: No: D o not add to previous draw Performed By: #### 8 [id number] #### [facility] [address] [place] [address], [place] Chloride [Moles/Vol] 105 mmol/L Normal 98-107 [facility] Comment on above: Order Comment: No: D o not add to previous draw Performed By: #### 8 5499 #### [facility] [address] [place] [address], [place] CO2 [Moles/Vol] 25 mmol/L Normal 21-31 [facility] Comment on above: Order Comment: No: D o not add to previous draw Performed By: #### 8 5499 #### [facility] [address] [place] [address], [place] Creatinine [Mass/Vol] 4.54 mg/dL High 0.70-1.30 [facility] Comment on above: Order Comment: No: D o not add to previous draw Performed By: #### 8 5499 #### [facility] [address] [place] [address], [place] eGFR- 16 ml/min/1.73sq m Abnormal >60 [facility] Comment on above: Order Comment: No: D o not add to previous draw Performed By: #### 8 5499 #### [facility] [address] [place] [address], [place] eGFR- non- 13 ml/min/1.73sq m Abnormal >60 [facility] Comment on above: Order Comment: No: D o not add to previous draw Performed By: #### 8 5499 #### [facility] [address] [place] [address], [place] Glucose [Mass/Vol] 118 mg/dL High 70-100 [facility] Comment on above: Order Comment: No: D o not add to previous draw Performed By: #### 8 5499 #### [facility] [address] [place] [address], [place] Potassium [Moles/Vol] 4.5 mmol/L Normal 3.5-5.1 [facility] Comment on above: Order Comment: No: D o not add to previous draw Performed By: #### 8 5499 #### [facility] [address] [place] [address], [place] Sodium [Moles/Vol] 137 mmol/L Normal 136-145 [facility] Comment on above: Order Comment: No: D o not add to previous draw Performed By: #### 8 5499 #### [facility] [address] [place] [address], [place] Urea nitrogen [Mass/Vol] 40 mg/dL High 7-25 [facility] Comment on above: Order Comment: No: D o not add to previous draw Performed By: #### 8 5499 #### [facility] [address] [place] [address], [facility] CBC W/DIFFon 07-18-2020 ABS IMM GRANS 0.1 10*3/uL Normal 0.0-0.2 [facility] Comment on above: Order Comment: No: D o not add to previous draw Performed By: #### 8 5499 #### [facility] [address] [place] [address], [facility] ABS NEUTROPHILS 5.0 10*3/uL Normal 1.6-7.6 [facility] Comment on above: Order Comment: No: D o not add to previous draw Performed By: #### 8 5499 #### [facility] [address] [place] [address], [facility] Basophils (Bld) [#/Vol] 0.0 10*3/uL Normal 0.0-0.2 [facility] Comment on above: Order Comment: No: D o not add to previous draw Performed By: #### 8 5499 #### [facility] [address] [place] [address], [facility] Basophils/100 WBC (Bld) 0.4 % Normal 0.0-1.0 [facility] Comment on above: Order Comment: No: D o not add to previous draw Performed By: #### 8 5499 #### [facility] [address] [place] [address], [facility] Eosinophils (Bld) [#/Vol] 0.6 10*3/uL High 0.0-0.5 [facility] Comment on above: Order Comment: No: D o not add to previous draw Performed By: #### 8 5499 #### [facility] [address] [place] [address], [facility] Eosinophils/100 WBC (Bld) 6.8 % High 0.0-6.0 [facility] Comment on above: Order Comment: No: D o not add to previous draw Performed By: #### 8 [id number] #### [facility] [address] [place] [address], [facility] Erythrocyte distribution width (RBC) [Ratio] 14.8 % Normal 11.5-15.0 [facility] Comment on above: Order Comment: No: D o not add to previous draw Performed By: #### 8 [id number] #### [facility] [address] [place] [address], [facility] Hematocrit (Bld) [Volume fraction] 31.9 % Low 39.0-50.0 [facility] Comment on above: Order Comment: No: D o not add to previous draw Performed By: #### 8 [id number] #### [facility] [address] [place] [address], [facility] Hemoglobin (Bld) [Mass/Vol] 9.4 g/dL Low 13.0-17.0 [facility] Comment on above: Order Comment: No: D o not add to previous draw Performed By: #### 8 5499 #### [facility] [address] [place] [id number], [facility] IMMATURE GRANS 1.7 % High 0.0-1.0 [facility] Comment on above: Order Comment: No: D o not add to previous draw Performed By: #### 8 [id number] #### [facility] [address] [place] [address], [facility] Lymphocytes (Bld) [#/Vol] 1.2 10*3/uL Normal 1.2-4.0 [facility] Comment on above: Order Comment: No: D o not add to previous draw Performed By: #### 8 [id number] #### [facility] [address] [place] [id number], [facility] Lymphocytes/100 WBC (Bld) 14.8 % Low 20.0-45.0 [facility] Comment on above: Order Comment: No: D o not add to previous draw Performed By: #### 8 [id number] #### [facility] [address] [place] [address], [facility] MCH (RBC) [Entitic mass] 26.9 pg Low 27.0-33.0 [facility] Comment on above: Order Comment: No: D o not add to previous draw Performed By: #### 8 [id number] #### [facility] [address] [place] [id number], [facility] MCHC (RBC) [Mass/Vol] 29.5 g/dL Low 32.0-35.0 [facility] Comment on above: Order Comment: No: D o not add to previous draw Performed By: #### 8 [id number] #### [facility] [address] [place] [address], [facility] MCV (RBC) [Entitic vol] 91.1 fL Normal 82.0-98.0 [facility] Comment on above: Order Comment: No: D o not add to previous draw Performed By: #### 8 [id number] #### [facility] [address] [place] [address], [facility] Monocytes (Bld) [#/Vol] 1.1 10*3/uL High 0.1-1.0 [facility] Comment on above: Order Comment: No: D o not add to previous draw Performed By: #### 8 [id number] #### [facility] [address] [place] [address], [facility] MONOS 13.4 % High 5.0-12.0 [facility] Comment on above: Order Comment: No: D o not add to previous draw Performed By: #### 8 [id number] #### [facility] [address] [place] [address], [facility] Neutrophils/100 WBC (Bld) 62.9 % Normal 40.0-72.0 [facility] Comment on above: Order Comment: No: D o not add to previous draw Performed By: #### 8 [id number] #### [facility] [address] [place] [address], [facility] Nucleated RBC/100 WBC (Bld) [Ratio] 0 % Normal 0-0 [facility] Comment on above: Order Comment: No: D o not add to previous draw Performed By: #### 8 [id number] #### [facility] [address] [place] [address], [place] PLAT CNT 296 10*3/uL Normal 150-400 [facility] Comment on above: Order Comment: No: D o not add to previous draw Performed By: #### 8 [id number] #### [facility] [address] [place] [address], [facility] RBC (Bld) [#/Vol] 3.50 10*6/uL Low 4.20-5.70 [facility] Comment on above: Order Comment: No: D o not add to previous draw Performed By: #### 8 [id number] #### [facility] [address] [place] [address], [place] WBC (Bld) [#/Vol] 8.03 10*3/uL Normal 4.00-10.60 [facility] Comment on above: Order Comment: No: D o not add to previous draw Performed By: #### 8 [id number] #### [facility] [address] [place] [address], [facility] POC GLUCOSE LABon 07-18-2020 Glucose [Mass/Vol] 192 mg/dL High 70-100 [facility] Comment on above: Performed By: #### 5 7307, 89795 #### [facility] [address] [place] [address], [place] Glucose [Mass/Vol] 153 mg/dL High 70-100 [facility] Comment on above: Performed By: #### 5 7307, [id number] #### [facility] [address] [place] [address], [place] Glucose [Mass/Vol] 80 mg/dL Normal 70-100 [facility] Comment on above: Performed By: #### 5 7307, 13591 #### [facility] [address] [place] [address], [facility] Glucose [Mass/Vol] 48 mg/dL Critically low 70-100 Th e [facility] Comment on above: Order Comment: Left Peural Effusion Performed By: #### 8 [id number] ####[facility] [place] [address], [place] Glucose [Mass/Vol] 120 mg/dL High 70-100 [facility] Comment on above: Performed By: #### 5 0103 #### [facility] [address] [place] [address], [facility] Glucose [Mass/Vol] 112 mg/dL High 70-100 [facility] Comment on above: Performed By: #### 5 7307, 03288 #### [facility] [address] [place] [address], [facility] POC SARS COV2 ANTIGEN NEGATI VEon 07-18-2020 POC SARS COV2 ANTIGEN NEG CANCELED Normal NEGATIVE [facility] Comment on above: Result Comment: The released value NEGATIVE was canceled by ULISES on 07/19/2020 07:11 Performed By: #### 3 1944 #### [facility] [address] [facility] [place] [address], [facility] POC SARS COV2 ANTIGEN NEG Negative Normal NEGATIVE [facility] Comment on above: Result Comment: [...] signs and symptoms consistent with COVID-19. The [employer] COVID-19 Antigen test is a lateral flow [...] Accreditation. Performed By: #### 8 [id number] #### [facility] [address] [place] [address], [facility] BASIC METABOLIC PANELon 03-2 Calcium [Mass/Vol] 8.2 mg/dL Low 8.6-10.3 [facility] Comment on above: Order Comment: No: D o not add to previous draw Performed By: #### 3 1943 #### [facility] [address] [facility] [address], [facility] Chloride [Moles/Vol] 101 mmol/L Normal 98-107 [facility] Comment on above: Order Comment: No: D o not add to previous draw Performed By: #### 3 1943 #### [facility] [address] [facility] [address], [facility] CO2 [Moles/Vol] 25 mmol/L Normal 21-31 [facility] Comment on above: Order Comment: No: D o not add to previous draw Performed By: #### 3 1943 #### [facility] [address] [place] [address], [facility] Creatinine [Mass/Vol] 3.64 mg/dL High 0.70-1.30 [facility] Comment on above: Order Comment: No: D o not add to previous draw Performed By: #### 3 1943 #### [facility] [address] [place] [address], [facility] eGFR- 21 ml/min/1.73sq m Abnormal >60 [facility] Comment on above: Order Comment: No: D o not add to previous draw Performed By: #### 3 1943 #### [facility] [address] [place] [address], [facility] eGFR- non- 17 ml/min/1.73sq m Abnormal >60 [facility] Comment on above: Order Comment: No: D o not add to previous draw Performed By: #### 3 1943 #### [facility] [address] [place] [address], [facility] Glucose [Mass/Vol] 124 mg/dL High 70-100 [facility] Comment on above: Order Comment: No: D o not add to previous draw Performed By: #### 3 1943 #### [facility] [address] [place] [address], [facility] Potassium [Moles/Vol] 4.3 mmol/L Normal 3.5-5.1 [facility] Comment on above: Order Comment: No: D o not add to previous draw Performed By: #### 3 1943 #### [facility] [address] [place] [address], [facility] Sodium [Moles/Vol] 134 mmol/L Low 136-145 [facility] Comment on above: Order Comment: No: D o not add to previous draw Performed By: #### 3 1943 #### [facility] [address] [place] [address], [facility] Urea nitrogen [Mass/Vol] 36 mg/dL High 7-25 [facility] Comment on above: Order Comment: No: D o not add to previous draw Performed By: #### 3 1943 #### [facility] [address] [place] [address], [facility] CBC W/DIFFon 07-17-2020 ABS IMM GRANS 0.2 10*3/uL Normal 0.0-0.2 [facility] Comment on above: Order Comment: No: D o not add to previous draw Performed By: #### 8 [id number] #### [facility] [address] [place] [address], [facility] ABS NEUTROPHILS 5.8 10*3/uL Normal 1.6-7.6 [facility] Comment on above: Order Comment: No: D o not add to previous draw Performed By: #### 8 [id number] #### [facility] [address] [place] [address], [place] Basophils (Bld) [#/Vol] 0.1 10*3/uL Normal 0.0-0.2 [facility] Comment on above: Order Comment: No: D o not add to previous draw Performed By: #### 8 [id number] #### [facility] [address] [place] [address], [facility] Basophils/100 WBC (Bld) 0.6 % Normal 0.0-1.0 [facility] Comment on above: Order Comment: No: D o not add to previous draw Performed By: #### 8 [id number] #### [facility] [address] [place] [address], [facility] Eosinophils (Bld) [#/Vol] 0.6 10*3/uL High 0.0-0.5 [facility] Comment on above: Order Comment: No: D o not add to previous draw Performed By: #### 8 5499 #### [facility] [address] [place] [address], [facility] Eosinophils/100 WBC (Bld) 7.0 % High 0.0-6.0 [facility] Comment on above: Order Comment: No: D o not add to previous draw Performed By: #### 8 [id number] #### [facility] [address] [place] [address], [place] Erythrocyte distribution width (RBC) [Ratio] 14.8 % Normal 11.5-15.0 [facility] Comment on above: Order Comment: No: D o not add to previous draw Performed By: #### 8 [id number] #### [facility] [address] [place] [address], [facility] Hematocrit (Bld) [Volume fraction] 30.0 % Low 39.0-50.0 [facility] Comment on above: Order Comment: No: D o not add to previous draw Performed By: #### 8 [id number] #### [facility] [address] [place] [address], [facility] Hemoglobin (Bld) [Mass/Vol] 9.2 g/dL Low 13.0-17.0 [facility] Comment on above: Order Comment: No: D o not add to previous draw Performed By: #### 8 [id number] #### [facility] [address] [place] [address], [facility] IMMATURE GRANS 1.7 % High 0.0-1.0 [facility] Comment on above: Order Comment: No: D o not add to previous draw Performed By: #### 8 [id number] #### [facility] [address] [facility] [address], [facility] Lymphocytes (Bld) [#/Vol] 1.3 10*3/uL Normal 1.2-4.0 [facility] Comment on above: Order Comment: No: D o not add to previous draw Performed By: #### 8 [id number] #### [facility] [address] [place] [address], [facility] Lymphocytes/100 WBC (Bld) 14.3 % Low 20.0-45.0 [facility] Comment on above: Order Comment: No: D o not add to previous draw Performed By: #### 8 [id number] #### [facility] [address] [facility] [place] [address], [facility] MCH (RBC) [Entitic mass] 27.3 pg Normal 27.0-33.0 [facility] Comment on above: Order Comment: No: D o not add to previous draw Performed By: #### 8 [id number] #### [facility] [address] [place] [address], [facility] MCHC (RBC) [Mass/Vol] 30.7 g/dL Low 32.0-35.0 [facility] Comment on above: Order Comment: No: D o not add to previous draw Performed By: #### 8 [id number] #### [facility] [address] [place] [id number], [facility] MCV (RBC) [Entitic vol] 89.0 fL Normal 82.0-98.0 [facility] Comment on above: Order Comment: No: D o not add to previous draw Performed By: #### 8 [id number] #### [facility] [address] [place] [address], [facility] Monocytes (Bld) [#/Vol] 1.0 10*3/uL Normal 0.1-1.0 [facility] Comment on above: Order Comment: No: D o not add to previous draw Performed By: #### 8 [id number] #### [facility] [address] [place] [id number], [facility] MONOS 10.9 % Normal 5.0-12.0 [facility] Comment on above: Order Comment: No: D o not add to previous draw Performed By: #### 8 [id number] #### [facility] [address] [place] [address], [facility] Neutrophils/100 WBC (Bld) 65.5 % Normal 40.0-72.0 [facility] Comment on above: Order Comment: No: D o not add to previous draw Performed By: #### 8 [id number] #### [facility] [address] [place] [id number], [facility] Nucleated RBC/100 WBC (Bld) [Ratio] 0 % Normal 0-0 [facility] Comment on above: Order Comment: No: D o not add to previous draw Performed By: #### 8 [id number] #### [facility] [address] [place] [address], [place] PLAT CNT 293 10*3/uL Normal 150-400 [facility] Comment on above: Order Comment: No: D o not add to previous draw Performed By: #### 8 [id number] #### [facility] [address] [place] [address], [place] RBC (Bld) [#/Vol] 3.37 10*6/uL Low 4.20-5.70 [facility] Comment on above: Order Comment: No: D o not add to previous draw Performed By: #### 8 [id number] #### [facility] [address] [place] [address], [place] WBC (Bld) [#/Vol] 8.86 10*3/uL Normal 4.00-10.60 [facility] Comment on above: Order Comment: No: D o not add to previous draw Performed By: #### 8 [id number] #### [facility] [address] [place] [address], [place] POC GLUCOSE LABon 07-17-2020 Glucose [Mass/Vol] 101 mg/dL High 70-100 [facility] Comment on above: Performed By: #### 5 7307, 50947 #### [facility] [address] [place] [address], [place] Glucose [Mass/Vol] 76 mg/dL Normal 70-100 [facility] Comment on above: Performed By: #### 5 7307, 24539 #### [facility] [address] [place] [address], [place] Glucose [Mass/Vol] 75 mg/dL Normal 70-100 [facility] Comment on above: Performed By: #### 8 [id number] ####[facility] [place] [address], [place] Glucose [Mass/Vol] 198 mg/dL High 70-100 [facility] Comment on above: Performed By: #### 8 [id number] ####[facility] [place] [address], [place] Glucose [Mass/Vol] 205 mg/dL High 70-100 [facility] Comment on above: Performed By: #### 3 0318 #### [facility] [address] [place] [address], [place] Glucose [Mass/Vol] 187 mg/dL High 70-100 [facility] Comment on above: Performed By: #### 5 7307, 94132 #### [facility] [address] [place] [address], [place] Glucose [Mass/Vol] 131 mg/dL High 70-100 [facility] Comment on above: Performed By: #### 8 [id number] #### [facility] [address] [place] [address], [place] Glucose [Mass/Vol] 75 mg/dL Normal 70-100 [facility] Comment on above: Performed By: #### 5 0103 #### [facility] [address] [place] [address], [place] Glucose [Mass/Vol] 69 mg/dL Low 70-100 [facility] Comment on above: Performed By: #### 8 [id number] ####[facility] [place] [address], [place] BASIC METABOLIC PANELon 03-2 0-2020 Calcium [Mass/Vol] 8.4 mg/dL Low 8.6-10.3 [facility] Comment on above: Order Comment: No: D o not add to previous draw Performed By: #### 3 1943 #### [facility] [address] [place] [address], [place] Chloride [Moles/Vol] 105 mmol/L Normal 98-107 [facility] Comment on above: Order Comment: No: D o not add to previous draw Performed By: #### 3 1943 #### [facility] [address] [place] [address], [place] CO2 [Moles/Vol] 24 mmol/L Normal 21-31 [facility] Comment on above: Order Comment: No: D o not add to previous draw Performed By: #### 3 1943 #### [facility] [address] [place] [address], [place] Creatinine [Mass/Vol] 4.14 mg/dL High 0.70-1.30 [facility] Comment on above: Order Comment: No: D o not add to previous draw Performed By: #### 3 1943 #### [facility] [address] [place] [address], [place] eGFR- 18 ml/min/1.73sq m Abnormal >60 [facility] Comment on above: Order Comment: No: D o not add to previous draw Performed By: #### 3 1943 #### [facility] [address] [place] [address], [place] eGFR- non- 15 ml/min/1.73sq m Abnormal >60 [facility] Comment on above: Order Comment: No: D o not add to previous draw Performed By: #### 3 1943 #### [facility] [address] [place] [address], [place] Glucose [Mass/Vol] 127 mg/dL High 70-100 [facility] Comment on above: Order Comment: No: D o not add to previous draw Performed By: #### 3 1943 #### [facility] [address] [place] [address], [place] Potassium [Moles/Vol] 4.0 mmol/L Normal 3.5-5.1 [facility] Comment on above: Order Comment: No: D o not add to previous draw Performed By: #### 3 1943 #### [facility] [address] [place] [address], [place] Sodium [Moles/Vol] 136 mmol/L Normal 136-145 [facility] Comment on above: Order Comment: No: D o not add to previous draw Performed By: #### 3 1943 #### [facility] [address] [place] [address], [facility] Urea nitrogen [Mass/Vol] 35 mg/dL High 7-25 [facility] Comment on above: Order Comment: No: D o not add to previous draw Performed By: #### 3 1943 #### [facility] [address] [place] [address], [facility] CBC COMPLETE BLOOD COUNTon 0 07-16-2020 Erythrocyte distribution width (RBC) [Ratio] 14.6 % Normal 11.5-15.0 [facility] Comment on above: Order Comment: No: D o not add to previous draw Performed By: #### 8 [id number] #### [facility] [address] [place] [address], [facility] Hematocrit (Bld) [Volume fraction] 31.8 % Low 39.0-50.0 [facility] Comment on above: Order Comment: No: D o not add to previous draw Performed By: #### 8 [id number] #### [facility] [address] [place] [address], [facility] Hemoglobin (Bld) [Mass/Vol] 9.7 g/dL Low 13.0-17.0 [facility] Comment on above: Order Comment: No: D o not add to previous draw Performed By: #### 8 [id number] #### [facility] [address] [place] [address], [facility] MCH (RBC) [Entitic mass] 27.2 pg Normal 27.0-33.0 [facility] Comment on above: Order Comment: No: D o not add to previous draw Performed By: #### 8 [id number] #### [facility] [address] [place] [address], [facility] MCHC (RBC) [Mass/Vol] 30.5 g/dL Low 32.0-35.0 [facility] Comment on above: Order Comment: No: D o not add to previous draw Performed By: #### 8 [id number] #### [facility] [address] [place] [address], [facility] MCV (RBC) [Entitic vol] 89.3 fL Normal 82.0-98.0 [facility] Comment on above: Order Comment: No: D o not add to previous draw Performed By: #### 8 [id number] #### [facility] [address] [place] [address], [facility] Nucleated RBC/100 WBC (Bld) [Ratio] 0 % Normal 0-0 [facility] Comment on above: Order Comment: No: D o not add to previous draw Performed By: #### 8 [id number] #### [facility] [address] [place] [address], [facility] PLAT CNT 321 10*3/uL Normal 150-400 [facility] Comment on above: Order Comment: No: D o not add to previous draw Performed By: #### 8 [id number] #### [facility] [address] [place] [address], [facility] RBC (Bld) [#/Vol] 3.56 10*6/uL Low 4.20-5.70 [facility] Comment on above: Order Comment: No: D o not add to previous draw Performed By: #### 8 [id number] #### [facility] [address] [place] [address], [place] WBC (Bld) [#/Vol] 8.88 10*3/uL Normal 4.00-10.60 [facility] Comment on above: Order Comment: No: D o not add to previous draw Performed By: #### 8 [id number] #### [facility] [address] [place] [address], [facility] POC GLUCOSE LABon 07-16-2020 Glucose [Mass/Vol] 94 mg/dL Normal 70-100 [facility] Comment on above: Performed By: #### 5 0103 #### [facility] [address] [place] [address], [place] Glucose [Mass/Vol] 62 mg/dL Low 70-100 [facility] Comment on above: Performed By: #### 5 7307, 80280 #### [facility] [address] [place] [address], [place] Glucose [Mass/Vol] 80 mg/dL Normal 70-100 [facility] Comment on above: Performed By: #### 5 7307, 94457 #### [facility] [address] [place] [address], [place] Glucose [Mass/Vol] 99 mg/dL Normal 70-100 [facility] Comment on above: Performed By: #### 8 [id number] ####[facility] [place] [address], [place] Glucose [Mass/Vol] 203 mg/dL High 70-100 [facility] Comment on above: Performed By: #### 8 5499 ####[facility] [place] [address], [place] Glucose [Mass/Vol] 151 mg/dL High 70-100 [facility] Comment on above: Performed By: #### 5 7307, 42001 #### [facility] [address] [place] [address], [place] ANAon 07-15-2020 KILLIAN SCREEN <1:40 Normal <1:40,1:40 [facility] Comment on above: Order Comment: No: D o not add to previous draw Performed By: #### 8 [id number] #### [facility] [address] [place] [address], [place] ANCA IGG WITH REFLEX [id number] on 07-15-2020 ANCA <1:20 Normal <1:20 [facility] Comment on above: Order Comment: [...] collagen vascular disease or arthritis. Performed By: [employer] [address] [place] [id number] [employer] Machine Operator Single Spindle: Emi Campbell MD BASIC METABOLIC PANELon 06-27 Calcium [Mass/Vol] 8.5 mg/dL Low 8.6-10.3 [facility] Comment on above: Order Comment: No: D o not add to previous draw Performed By: #### 8 [id number] #### [facility] [address] [place] [address], [facility] Chloride [Moles/Vol] 103 mmol/L Normal 98-107 [facility] Comment on above: Order Comment: No: D o not add to previous draw Performed By: #### 8 [id number] #### [facility] [address] [place] [address], [facility] CO2 [Moles/Vol] 23 mmol/L Normal 21-31 [facility] Comment on above: Order Comment: No: D o not add to previous draw Performed By: #### 8 [id number] #### [facility] [address] [place] [id number], [facility] Creatinine [Mass/Vol] 4.38 mg/dL High 0.70-1.30 [facility] Comment on above: Order Comment: No: D o not add to previous draw Performed By: #### 8 [id number] #### [facility] [address] [place] [address], [facility] eGFR- 17 ml/min/1.73sq m Abnormal >60 [facility] Comment on above: Order Comment: No: D o not add to previous draw Performed By: #### 8 [id number] #### [facility] [address] [place] [address], [place] eGFR- non- 14 ml/min/1.73sq m Abnormal >60 [facility] Comment on above: Order Comment: No: D o not add to previous draw Performed By: #### 8 [id number] #### [facility] [address] [place] [address], [place] Glucose [Mass/Vol] 154 mg/dL High 70-100 [facility] Comment on above: Order Comment: No: D o not add to previous draw Performed By: #### 8 [id number] #### [facility] [address] [place] [address], [place] Potassium [Moles/Vol] 4.5 mmol/L Normal 3.5-5.1 [facility] Comment on above: Order Comment: No: D o not add to previous draw Performed By: #### 8 [id number] #### [facility] [address] [place] [address], [place] Sodium [Moles/Vol] 135 mmol/L Low 136-145 [facility] Comment on above: Order Comment: No: D o not add to previous draw Performed By: #### 8 [id number] #### [facility] [address] [place] [address], [place] Urea nitrogen [Mass/Vol] 32 mg/dL High 7-25 [facility] Comment on above: Order Comment: No: D o not add to previous draw Performed By: #### 8 [id number] #### [facility] [address] [place] [address], [place] C REACTIVE PROTEINon 021 CRP [Mass/Vol] 138.0 mg/L High 0.0-7.0 [facility] Comment on above: Order Comment: FROM [id number] Performed By: #### 8 [id number] #### [facility] [address] CBC W/DIFFon 07-15-2020 ABS IMM GRANS 0.1 10*3/uL Normal 0.0-0.2 [facility] Comment on above: Performed By: #### 5 0103 #### [facility] [address] [place] [address], [facility] ABS NEUTROPHILS 7.3 10*3/uL Normal 1.6-7.6 [facility] Comment on above: Performed By: #### 5 0103 #### [facility] [address] [place] [address], [facility] Basophils (Bld) [#/Vol] 0.0 10*3/uL Normal 0.0-0.2 [facility] Comment on above: Performed By: #### 5 0103 #### [facility] [address] [place] [address], [facility] Basophils/100 WBC (Bld) 0.3 % Normal 0.0-1.0 [facility] Comment on above: Performed By: #### 5 0103 #### [facility] [address] [place] [address], [facility] Eosinophils (Bld) [#/Vol] 0.5 10*3/uL Normal 0.0-0.5 [facility] Comment on above: Performed By: #### 5 0103 #### [facility] [address] [place] [address], [facility] Eosinophils/100 WBC (Bld) 5.1 % Normal 0.0-6.0 [facility] Comment on above: Performed By: #### 5 0103 #### [facility] [address] [place] [address], [facility] Erythrocyte distribution width (RBC) [Ratio] 14.9 % Normal 11.5-15.0 [facility] Comment on above: Performed By: #### 5 0103 #### [facility] [address] Hematocrit (Bld) [Volume fraction] 33.0 % Low 39.0-50.0 [facility] Comment on above: Performed By: #### 5 0103 #### [facility] [address] Hemoglobin (Bld) [Mass/Vol] 9.9 g/dL Low 13.0-17.0 [facility] Comment on above: Performed By: #### 5 0103 #### [facility] [address] IMMATURE GRANS 1.4 % High 0.0-1.0 [facility] Comment on above: Performed By: #### 102 #### [facility] [address] Lymphocytes (Bld) [#/Vol] 1.1 10*3/uL Low 1.2-4.0 [facility] Comment on above: Performed By: #### 3 #### [facility] [address] Lymphocytes/100 WBC (Bld) 11.0 % Low 20.0-45.0 [facility] Comment on above: Performed By: #### 3 #### [facility] [address] MCH (RBC) [Entitic mass] 27.0 pg Normal 27.0-33.0 [facility] Comment on above: Performed By: #### 5 3 #### [facility] [address] MCHC (RBC) [Mass/Vol] 30.0 g/dL Low 32.0-35.0 [facility] Comment on above: Performed By: #### 5 3 #### [facility] [address] MCV (RBC) [Entitic vol] 90.2 fL Normal 82.0-98.0 [facility] Comment on above: Performed By: #### 5 0103 #### [facility] [address] [place] [address], [facility] Monocytes (Bld) [#/Vol] 1.1 10*3/uL High 0.1-1.0 [facility] Comment on above: Performed By: #### 5 0103 #### [facility] [address] [place] [id number], [facility] MONOS 10.9 % Normal 5.0-12.0 [facility] Comment on above: Performed By: #### 102 #### [facility] [address] [place] [id number], [facility] Neutrophils/100 WBC (Bld) 71.3 % Normal 40.0-72.0 [facility] Comment on above: Performed By: #### 102 #### [facility] [address] [place] [address], [facility] Nucleated RBC/100 WBC (Bld) [Ratio] 0 % Normal 0-0 [facility] Comment on above: Performed By: #### 102 #### [facility] [address] [place] [address], [place] PLAT CNT 317 10*3/uL Normal 150-400 [facility] Comment on above: Performed By: #### 3 #### [facility] [address] [place] [address], [place] RBC (Bld) [#/Vol] 3.66 10*6/uL Low 4.20-5.70 [facility] Comment on above: Performed By: #### 102 #### [facility] [address] [place] [address], [place] WBC (Bld) [#/Vol] 10.23 10*3/uL Normal 4.00-10.60 [facility] Comment on above: Performed By: #### 5 0103 #### [facility] [address] [place] [address], [facility] COMPLEMENT 3on 07-15-2020 COMPLEMENT 3 108 mg/dL Normal 79-152 [facility] Comment on above: Order Comment: No: D o not add to previous draw Performed By: #### 8 [id number] #### [facility] [address] [place] [address], [facility] COMPLEMENT 4on 07-15-2020 COMPLEMENT 4 31 mg/dL Normal 16-38 [facility] Comment on above: Order Comment: No: D o not add to previous draw Performed By: #### 8 [id number] #### [facility] [address] [facility] [place] [address], [facility] GLOMR BASMT MEMBRon 07-16-19 21 GLOMR BASMT MBRN Negative Abnormal NEGATIVE [facility] Comment on above: Order Comment: No: D o not add to previous draw Result Comment: Note : The performance characteristics of this test were validated by the [facility] Immunology laboratory. It has not been cleared or approved by the [place].S. Food and Drug Administration. The results are not intended to be used as the sole means for clinical diagnosis or patient management decisions. [facility]'s Immunology lab is authorized under CLIA to perform high-complexity testing. Performed By: #### 8 [id number] #### [facility] [address] [place] [address], [facility] POC GLUCOSE LABon 07-15-2020 Glucose [Mass/Vol] 107 mg/dL High 70-100 [facility] Comment on above: Performed By: #### 5 7307, 65926 #### [facility] [address] [facility] [address], [facility] Glucose [Mass/Vol] 84 mg/dL Normal 70-100 [facility] Comment on above: Performed By: #### 5 0103 #### [facility] [address] [facility] [place] [address], [facility] Glucose [Mass/Vol] 164 mg/dL High 70-100 [facility] Comment on above: Performed By: #### 8 5499 ####[facility] [facility] [place] [address], [facility] Glucose [Mass/Vol] 141 mg/dL High 70-100 [facility] Comment on above: Performed By: #### 5 7307, 20202 #### [facility] [address] [place] [address], [facility] PORTABLE CHEST 1 VIEWon 06-27 PORTABLE CHEST 1 VIEW [facility] Department of Radiology [address] [place] [id number] Patient Name: RASHARD LYMAN : 1960 Sex: M Age: Race: White Pt. Location: [address] [place] [address] Patient Status: I Ordered Date: 07/15/2020 7:00:00 [...] exam. Electronically signed: Nir Swartz. Transcribed by: [email or web address], User Resident: Electronically Signed by: NIR SWARTZ @ 07/15/2020 07:34 AM Normal [facility] Comment on above: Order Comment: evalu ate for Effusion *AFB CULTUREon 07-14-2020 *AFB CULTURE Clinical Report: (D) Specimen/Source: FLUID/PLEURAL FLUID Collected: 07/14/2020 13:03 Status: Final Last Updated: 08/26/2020 08:52 (1) Left Peural Effusion AFB (Final) No Acid Fast Bacilli Seen CULT RES (Final) No growth after 42 days of incubation Normal [facility] Comment on above: Order Comment: Left Peural Effusion Performed By: #### 8 [id number] #### [facility] [address] *ANAEROBIC CULTUREon 021 *ANAEROBIC CULTURE Clinical Report: (D) Specimen/Source: FLUID/PLEURAL FLUID Collected: 07/14/2020 13:03 Status: Final Last Updated: 07/19/2020 08:08 (1) Left Peural Effusion CULT RES (Final) No Anaerobes Isolated 5 Days Normal [facility] Comment on above: Order Comment: Left Peural Effusion Performed By: #### 8 [id number] #### [facility] [address] *BODY FLUID CULTUREon 2020 *BODY FLUID CULTURE Clinical Report: (D) Specimen/Source: FLUID/PLEURAL FLUID Collected: 07/14/2020 13:03 Status: Final Last Updated: 07/19/2020 07:53 (1) Left Peural Effusion GRAM (Final) Polys PRESENT No Bacteria Seen CYTOSPUN (Final) This Gram Stain was done on a cytocentrifuged specimen CULT RES (Final) No Growth Day 5 Normal [facility] Comment on above: Order Comment: Left Peural Effusion Performed By: #### 3 0318 #### [facility] [address] [facility]. [address] *FUNGAL CULTUREon 07-14-2020 *FUNGAL CULTURE Clinical Report: (D) Specimen/Source: FLUID/PLEURAL FLUID Collected: 07/14/2020 13:03 Status: Final Last Updated: 08/15/2020 08:41 (1) Left Peural Effusion FS (Final) No Yeast or Fungal Elements Seen CULT RES (Final) Culture negative for fungus Normal [facility] Comment on above: Order Comment: Left Peural Effusion Performed By: #### 8 [id number] #### [facility] [address] [facility]. [address] *VIRAL NON RESPIRATORY CULTU REon 07-14-2020 Bacteria identified Cx Nom (Unsp spec) Normal [facility] Comment on above: Order Comment: [...] Linked Virus Inducible S. [place] Normal [facility] Comment on above: Order Comment: Left Peural Effusion Result Comment: Test [place]formed [place] [address] - Released 07/20/2020 14:10 Result changed by IF on 07/17/2020 14:17. The previous value was Test Performed by [address] [address] [phone].. Result changed by IF on 07/18/2020 12:17. The previous value was Test Performed by [facility] [address] [place] [address], [place] [address] [phone].. Result changed by IF on 07/20/2020 14:10. The previous value was Test Performed by [address] [place] [address] [phone].. REPORT STATUS FINAL 07/20/2020 Normal [facility] Comment on above: Order Comment: Left Peural Effusion Result Comment: Resu lt changed by IF on 07/20/2020 14:10. The previous value was Preliminary. APTTon 07-14-2020 aPTT Coag (Bld) [Time] 41.7 s High 25.0-35.0 [facility] Comment on above: Order Comment: [...] PURPOSE. Performed By: #### 8 [id number] #### [facility] [address] [facility] [place], [place] [address] [place] [address] aPTT Coag (Bld) [Time] 44.9 s High 25.0-35.0 [facility] Comment on above: Order Comment: [...] FOR THIS PURPOSE. Performed By: #### 5 8807, 08955 #### [facility] [address] [place] [address], [place] BASIC METABOLIC PANELon 06-27 Calcium [Mass/Vol] 8.6 mg/dL Normal 8.6-10.3 [facility] Comment on above: Order Comment: No: D o not add to previous draw Performed By: #### 8 [id number] #### [facility] [address] [place] [address], [place] Chloride [Moles/Vol] 102 mmol/L Normal 98-107 [facility] Comment on above: Order Comment: No: D o not add to previous draw Performed By: #### 8 [id number] #### [facility] [address] [place] [address], [place] CO2 [Moles/Vol] 24 mmol/L Normal 21-31 [facility] Comment on above: Order Comment: No: D o not add to previous draw Performed By: #### 8 5499 #### [facility] [address] [place] [address], [place] Creatinine [Mass/Vol] 3.44 mg/dL High 0.70-1.30 [facility] Comment on above: Order Comment: No: D o not add to previous draw Performed By: #### 8 [id number] #### [facility] [address] [place] [address], [place] eGFR- 22 ml/min/1.73sq m Abnormal >60 [facility] Comment on above: Order Comment: No: D o not add to previous draw Performed By: #### 8 5499 #### [facility] [address] [place] [address], [place] eGFR- non- 18 ml/min/1.73sq m Abnormal >60 [facility] Comment on above: Order Comment: No: D o not add to previous draw Performed By: #### 8 5499 #### [facility] [address] [place] [address], [facility] Glucose [Mass/Vol] 355 mg/dL High 70-100 [facility] Comment on above: Order Comment: No: D o not add to previous draw Performed By: #### 8 5499 #### [facility] [address] [place] [address], [facility] Potassium [Moles/Vol] 4.6 mmol/L Normal 3.5-5.1 [facility] Comment on above: Order Comment: No: D o not add to previous draw Performed By: #### 8 [id number] #### [facility] [address] [facility] [address], [facility] Sodium [Moles/Vol] 133 mmol/L Low 136-145 [facility] Comment on above: Order Comment: No: D o not add to previous draw Performed By: #### 8 [id number] #### [facility] [address] [facility]. [address] Urea nitrogen [Mass/Vol] 27 mg/dL High 7-25 [facility] Comment on above: Order Comment: No: D o not add to previous draw Performed By: #### 8 [id number] #### [facility] [address] [facility] [address] BNP (B-TYPE NATRIURETIC PEPT CIERRA)on 07-14-2020 Natriuretic peptide B (Bld) [Mass/Vol] 19 pg/mL Normal 0-100 [facility] Comment on above: Order Comment: Left Peural Effusion Result Comment: Give n the appropriate clinical setting a BNP result of >100 pg/mL indicates congestive heart failure. Performed By: #### 3 0318 #### [facility] [address] [facility]. [address] CBC COMPLETE BLOOD COUNTon 0 07-14-2020 Erythrocyte distribution width (RBC) [Ratio] 14.6 % Normal 11.5-15.0 [facility] Comment on above: Order Comment: No: D o not add to previous draw Performed By: #### 8 [id number] #### [facility] [address] [place] [address], [facility] Hematocrit (Bld) [Volume fraction] 35.3 % Low 39.0-50.0 [facility] Comment on above: Order Comment: No: D o not add to previous draw Performed By: #### 8 [id number] #### [facility] [address] [place] [address], [facility] Hemoglobin (Bld) [Mass/Vol] 11.1 g/dL Low 13.0-17.0 [facility] Comment on above: Order Comment: No: D o not add to previous draw Performed By: #### 8 [id number] #### [facility] [address] [place] [id number], [facility] MCH (RBC) [Entitic mass] 27.5 pg Normal 27.0-33.0 [facility] Comment on above: Order Comment: No: D o not add to previous draw Performed By: #### 8 [id number] #### [facility] [address] [place] [address], [facility] MCHC (RBC) [Mass/Vol] 31.4 g/dL Low 32.0-35.0 [facility] Comment on above: Order Comment: No: D o not add to previous draw Performed By: #### 8 [id number] #### [facility] [address] [place] [id number], [facility] MCV (RBC) [Entitic vol] 87.6 fL Normal 82.0-98.0 [facility] Comment on above: Order Comment: No: D o not add to previous draw Performed By: #### 8 [id number] #### [facility] [address] [place] [id number], [facility] Nucleated RBC/100 WBC (Bld) [Ratio] 0 % Normal 0-0 [facility] Comment on above: Order Comment: No: D o not add to previous draw Performed By: #### 8 [id number] #### [facility] [address] [place] [address], [facility] PLAT CNT 325 10*3/uL Normal 150-400 [facility] Comment on above: Order Comment: No: D o not add to previous draw Performed By: #### 8 [id number] #### [facility] [address] [facility] [place] [address], [facility] RBC (Bld) [#/Vol] 4.03 10*6/uL Low 4.20-5.70 [facility] Comment on above: Order Comment: No: D o not add to previous draw Performed By: #### 8 [id number] #### [facility] [address] [facility] [place] [address], [facility] WBC (Bld) [#/Vol] 12.59 10*3/uL High 4.00-10.60 [facility] Comment on above: Order Comment: No: D o not add to previous draw Performed By: #### 8 [id number] #### [facility] [address] [facility] [place] [address], [facility] CBC W/DIFFon 07-14-2020 ABS IMM GRANS 0.2 10*3/uL Normal 0.0-0.2 [facility] Comment on above: Order Comment: No: D o not add to previous draw Performed By: #### 8 [id number] #### [facility] [address] [facility] [place] [address], [facility] ABS NEUTROPHILS 7.9 10*3/uL High 1.6-7.6 [facility] Comment on above: Order Comment: No: D o not add to previous draw Performed By: #### 8 [id number] #### [facility] [address] [facility] [place] [address], [facility] Basophils (Bld) [#/Vol] 0.1 10*3/uL Normal 0.0-0.2 [facility] Comment on above: Order Comment: No: D o not add to previous draw Performed By: #### 8 [id number] #### [facility] [address] [place] [address], [facility] Basophils/100 WBC (Bld) 0.5 % Normal 0.0-1.0 [facility] Comment on above: Order Comment: No: D o not add to previous draw Performed By: #### 8 [id number] #### [facility] [address] [place] [address], [place] Eosinophils (Bld) [#/Vol] 0.5 10*3/uL Normal 0.0-0.5 [facility] Comment on above: Order Comment: No: D o not add to previous draw Performed By: #### 8 [id number] #### [facility] [address] [place] [address], [facility] Eosinophils/100 WBC (Bld) 4.3 % Normal 0.0-6.0 [facility] Comment on above: Order Comment: No: D o not add to previous draw Performed By: #### 8 [id number] #### [facility] [address] [place] [address], [facility] Erythrocyte distribution width (RBC) [Ratio] 14.6 % Normal 11.5-15.0 [facility] Comment on above: Order Comment: No: D o not add to previous draw Performed By: #### 8 [id number] #### [facility] [address] [place] [address], [facility] Hematocrit (Bld) [Volume fraction] 34.2 % Low 39.0-50.0 [facility] Comment on above: Order Comment: No: D o not add to previous draw Performed By: #### 8 [id number] #### [facility] [address] [place] [address], [place] Hemoglobin (Bld) [Mass/Vol] 10.3 g/dL Low 13.0-17.0 [facility] Comment on above: Order Comment: No: D o not add to previous draw Performed By: #### 8 [id number] #### [facility] [address] [place] [id number], [facility] IMMATURE GRANS 1.4 % High 0.0-1.0 [facility] Comment on above: Order Comment: No: D o not add to previous draw Performed By: #### 8 [id number] #### [facility] [address] [place] [id number], [facility] Lymphocytes (Bld) [#/Vol] 1.3 10*3/uL Normal 1.2-4.0 [facility] Comment on above: Order Comment: No: D o not add to previous draw Performed By: #### 8 [id number] #### [facility] [address] [place] [id number], [facility] Lymphocytes/100 WBC (Bld) 11.3 % Low 20.0-45.0 [facility] Comment on above: Order Comment: No: D o not add to previous draw Performed By: #### 8 [id number] #### [facility] [address] [facility] [place] [id number], [facility] MCH (RBC) [Entitic mass] 27.0 pg Normal 27.0-33.0 [facility] Comment on above: Order Comment: No: D o not add to previous draw Performed By: #### 8 [id number] #### [facility] [address] [facility] [address] [place] [id number], [facility] MCHC (RBC) [Mass/Vol] 30.1 g/dL Low 32.0-35.0 [facility] Comment on above: Order Comment: No: D o not add to previous draw Performed By: #### 8 [id number] #### [facility] [address] [place] [id number], [facility] MCV (RBC) [Entitic vol] 89.5 fL Normal 82.0-98.0 [facility] Comment on above: Order Comment: No: D o not add to previous draw Performed By: #### 8 [id number] #### [facility] [address] [place] [address], [facility] Monocytes (Bld) [#/Vol] 1.4 10*3/uL High 0.1-1.0 [facility] Comment on above: Order Comment: No: D o not add to previous draw Performed By: #### 8 [id number] #### [facility] [address] [place] [address], [place] MONOS 12.6 % High 5.0-12.0 [facility] Comment on above: Order Comment: No: D o not add to previous draw Performed By: #### 8 [id number] #### [facility] [address] [place] [id number], [facility] Neutrophils/100 WBC (Bld) 69.9 % Normal 40.0-72.0 [facility] Comment on above: Order Comment: No: D o not add to previous draw Performed By: #### 8 [id number] #### [facility] [address] [place] [id number], [facility] Nucleated RBC/100 WBC (Bld) [Ratio] 0 % Normal 0-0 [facility] Comment on above: Order Comment: No: D o not add to previous draw Performed By: #### 8 [id number] #### [facility] [address] [place] [address], [place] PLAT CNT 292 10*3/uL Normal 150-400 [facility] Comment on above: Order Comment: No: D o not add to previous draw Performed By: #### 8 [id number] #### [facility] [address] [place] [address], [facility] RBC (Bld) [#/Vol] 3.82 10*6/uL Low 4.20-5.70 [facility] Comment on above: Order Comment: No: D o not add to previous draw Performed By: #### 8 [id number] #### [facility] [address] [place] [address], [facility] WBC (Bld) [#/Vol] 11.28 10*3/uL High 4.00-10.60 [facility] Comment on above: Order Comment: No: D o not add to previous draw Performed By: #### 8 [id number] #### [facility] [address] [place] [address], [facility] COMP METABOLIC PANELon 07-14 Albumin [Mass/Vol] 3.1 g/dL Low 3.5-5.7 [facility] Comment on above: Order Comment: No: D o not add to previous draw Performed By: #### 8 [id number] #### [facility] [address] [place] [address], [facility] ALKALINE PHOSPH 77 IU/L Normal 34-104 [facility] Comment on above: Order Comment: No: D o not add to previous draw Performed By: #### 8 [id number] #### [facility] [address] [place] [address], [place] ALT [Catalytic activity/Vol] 8 U/L Normal 7-52 [facility] Comment on above: Order Comment: No: D o not add to previous draw Performed By: #### 8 [id number] #### [facility] [address] [place] [address], [place] AST [Catalytic activity/Vol] 11 U/L Low 13-39 [facility] Comment on above: Order Comment: No: D o not add to previous draw Performed By: #### 8 [id number] #### [facility] [address] [place] [address], [place] Bilirubin [Mass/Vol] 0.3 mg/dL Normal 0.3-1.0 [facility] Comment on above: Order Comment: No: D o not add to previous draw Performed By: #### 8 [id number] #### [facility] [address] [place] [address], [place] Calcium [Mass/Vol] 8.8 mg/dL Normal 8.6-10.3 [facility] Comment on above: Order Comment: No: D o not add to previous draw Performed By: #### 8 [id number] #### [facility] [address] [place] [address], [place] Chloride [Moles/Vol] 101 mmol/L Normal 98-107 [facility] Comment on above: Order Comment: No: D o not add to previous draw Performed By: #### 8 [id number] #### [facility] [address] [place] [address], [place] CO2 [Moles/Vol] 22 mmol/L Normal 21-31 [facility] Comment on above: Order Comment: No: D o not add to previous draw Performed By: #### 8 [id number] #### [facility] [address] [place] [address], [place] Creatinine [Mass/Vol] 3.38 mg/dL High 0.70-1.30 [facility] Comment on above: Order Comment: No: D o not add to previous draw Performed By: #### 8 [id number] #### [facility] [address] [place] [address], [place] eGFR- 23 ml/min/1.73sq m Abnormal >60 [facility] Comment on above: Order Comment: No: D o not add to previous draw Performed By: #### 8 [id number] #### [facility] [address] [place] [address], [place] eGFR- non- 19 ml/min/1.73sq m Abnormal >60 [facility] Comment on above: Order Comment: No: D o not add to previous draw Performed By: #### 8 [id number] #### [facility] [address] [place] [address], [place] Glucose [Mass/Vol] 324 mg/dL High 70-100 [facility] Comment on above: Order Comment: No: D o not add to previous draw Performed By: #### 8 [id number] #### [facility] [address] [place] [address], [place] Potassium [Moles/Vol] 4.5 mmol/L Normal 3.5-5.1 [facility] Comment on above: Order Comment: No: D o not add to previous draw Performed By: #### 8 [id number] #### [facility] [address] [place] [address], [place] Protein [Mass/Vol] 6.7 g/dL Normal 6.0-8.3 [facility] Comment on above: Order Comment: No: D o not add to previous draw Performed By: #### 8 [id number] #### [facility] [address] [place] [address], [place] Sodium [Moles/Vol] 131 mmol/L Low 136-145 [facility] Comment on above: Order Comment: No: D o not add to previous draw Performed By: #### 8 [id number] #### [facility] [address] [place] [address], [place] Urea nitrogen [Mass/Vol] 27 mg/dL High 7-25 [facility] Comment on above: Order Comment: No: D o not add to previous draw Performed By: #### 8 [id number] #### [facility] [address] [place] [address], [place] CREATININE URINE RANDOMon Creatinine (U) [Mass/Vol] 101.0 mg/dL Normal [facility] Comment on above: Order Comment: No: D o not add to previous draw Result Comment: Ther e are no established reference values for random urine specimens Performed By: #### 8 [id number] #### [facility] [address] [place] [address], [place] FLUID CELL COUNTon 1 Basophils/100 WBC (Bld) 1 % Normal [facility] Comment on above: Performed By: #### 8 [id number] #### [facility] [address] [place] [address], [place] Eosinophils/100 WBC (Bld) 11 % Normal [facility] Comment on above: Performed By: #### 8 [id number] #### [facility] [address] [place] [address], [place] Lymphocytes/100 WBC (Bld) 49 % Normal [facility] Comment on above: Performed By: #### 8 [id number] #### [facility] [address] [place] [address], [place] MESOTHELIAL 12 % Normal [facility] Comment on above: Performed By: #### 8 [id number] #### [facility] [address] [place] [address], [place] OTHER F1 Diff done by cytospin Normal [facility] Comment on above: Performed By: #### 8 [id number] #### [facility] [address] [place] [address], [facility] OTHER F3 Checked by Evelyn Rodriguez M.D. Normal [facility] Comment on above: Result Comment: Resu lt changed by ERR on 07/15/2020 13:33. The previous value was Preliminary report; verified report to follow. Performed By: #### 8 [id number] #### [facility] [address] [place] [address], [place] RBC [address] RBC/uL Normal [facility] Comment on above: Performed By: #### 8 [id number] #### [facility] [address] [place] [address], [place] SEGS 27 % Normal [facility] Comment on above: Performed By: #### 8 [id number] #### [facility] [address] [place] [address], [place] SOURCE Thoracentesis Normal [facility] Comment on above: Performed By: #### 8 [id number] #### [facility] [address] [place] [address], [facility] TOTAL VOLUME 1L Normal [facility] Comment on above: Performed By: #### 8 [id number] #### [facility] [address] [place] [address], [place] WBC 1762 WBC/uL Normal [facility] Comment on above: Result Comment: Some reference interval(s) and other method performance specifications have not been established for analytes on this body fluid. The test result must be integrated into the clinical context for interpretation. Performed By: #### 8 [id number] #### [facility] [address] [place] [address], [facility] GLUCOSE FLUID MISCon 021 Glucose [Mass/Vol] 326 mg/dL Normal [facility] Comment on above: Result Comment: The reference range and other method performance specifications have not been established for this test in fluids. the test result should be integrated into the clinical context for interpretation. Performed By: #### 3 4 #### [facility] [address] [place] [address], [facility] HEMOGLOBIN A1Con 07-14-2020 Glucose [Moles/Vol] 295 mmol/L Normal [facility] Comment on above: Order Comment: Left Peural Effusion Performed By: #### 3 8 #### [facility] [address] [place] [address], [facility] HbA1c (Bld) [Mass fraction] 11.9 % High 4.0-6.0 [facility] Comment on above: Order Comment: Left Peural Effusion Performed By: #### 3 8 #### [facility] [address] [place] [address], [place] HEPATITIS B SURFACE ANTIGEN QUALon 07-14-2020 HEP B SURF AG QUAL Non-Reactive Normal NONREACTIVE [facility] Comment on above: Order Comment: No: D o not add to previous draw Performed By: #### 3 1943 #### [facility] [address] [place] [address], [facility] HEPATITIS C ANTIBODYon 07-14 ANTI-HCV Non-Reactive Normal NONREACTIVE [facility] Comment on above: Order Comment: No: D o not add to previous draw Performed By: #### 3 1943 #### [facility] [address] [place] [address], [place] LDH BLOODon 07-14-2020 LDH 176 Units/L Normal 140-271 [facility] Comment on above: Order Comment: Left Peural Effusion Performed By: #### 3 0318 #### [facility] [address] [place] [address], [place] LDH 133 Units/L Low 140-271 [facility] Comment on above: Order Comment: No: D o not add to previous draw Performed By: #### 8 [id number] #### [facility] [address] [place] [address], [place] LDH FLUIDon 07-14-2020 LDH 212 Units/L Normal [facility] Comment on above: Result Comment: The reference range and other method performance specifications have not been established for this test in fluids. the test result should be integrated into the clinical context for interpretation. Performed By: #### 3 4 #### [facility] [address] [place] [address], [place] LIPID PROFILEon 07-14-2020 Cholesterol [Mass/Vol] 95 mg/dL Low 120-200 [facility] Comment on above: Order Comment: No: D o not add to previous draw Result Comment: CHOL ESTEROL REFERENCE RANGE: 20 YEARS AND OLDER CARDIOVASCULAR RISK Less than 200 mg/dl Low Risk 200 to 239 mg/dl Borderline Risk 240 mg/dl and greater High Risk Performed By: #### 8 [id number] #### [facility] [address] [place] [address], [facility] Cholesterol in HDL [Mass/Vol] 36 mg/dL Normal 23-92 [facility] Comment on above: Order Comment: No: D o not add to previous draw Result Comment: Slig ht variation in normal range could be due to gender and/or age. HDL CHOLESTEROL REFERENCE RANGE: 20 years and older Cardiovascular Risk > or =60 mg/dL Desirable 40 TO 59 mg/dL Low Risk <40 mg/dL High Risk Performed By: #### 8 [id number] #### [facility] [address] [place] [address], [place] Cholesterol in LDL [Mass/Vol] 37 mg/dL Normal 0-130 [facility] Comment on above: Order Comment: No: D o not add to previous draw Result Comment: LDL IS A CALCULATION LDL IS ONLY VALID IF THE TRIG IS LESS THAN 400. Performed By: #### 8 [id number] #### [facility] [address] [place] [address], [facility] Cholesterol.total/C holesterol in HDL [Mass ratio] 2.6 {ratio} Normal 0.0-4.5 [facility] Comment on above: Order Comment: No: D o not add to previous draw Performed By: #### 8 [id number] #### [facility] [address] [place] [address], [place] NON-HDL CHOLESTEROL 59 mg/dL Normal [facility] Comment on above: Order Comment: No: D o not add to previous draw Performed By: #### 8 5499 #### [facility] [address] [place] [address], [place] Triglyceride [Mass/Vol] 109 mg/dL Normal 40-149 [facility] Comment on above: Order Comment: No: D o not add to previous draw Result Comment: TRIG LYCERIDE REFERENCE RANGE: 20 YEARS AND OLDER CARDIOVASCULAR RISK LESS THAN 150 mg/dl LOW RISK 150 TO 199 mg/dl BORDERLINE RISK 200 mg/dl AND GREATER HIGH RISK Performed By: #### 8 5499 #### [facility] [address] [place] [address], [place] VLDL CHOL 22 mg/dL Normal 0-40 [facility] Comment on above: Order Comment: No: D o not add to previous draw Performed By: #### 8 5499 #### [facility] [address] [place] [address], [place] MAGNESIUM BLOODon 07-14-2020 Magnesium [Mass/Vol] 2.1 mg/dL Normal 1.9-2.7 [facility] Comment on above: Order Comment: No: D o not add to previous draw Performed By: #### 8 5499 #### [facility] [address] [place] [address], [place] Magnesium [Mass/Vol] 2.0 mg/dL Normal 1.9-2.7 [facility] Comment on above: Performed By: #### 8 5499 #### [facility] [address] [place] [address], [place] PHOSPHORUS BLOODon Phosphate [Mass/Vol] 4.1 mg/dL Normal 2.5-5.0 [facility] Comment on above: Order Comment: No: D o not add to previous draw Performed By: #### 8 5499 #### [facility] [address] [place] [address], [place] Phosphate [Mass/Vol] 4.0 mg/dL Normal 2.5-5.0 [facility] Comment on above: Performed By: #### 8 5499 #### [facility] [address] [place] [address], [place] POC GLUCOSE LABon 07-14-2020 Glucose [Mass/Vol] 180 mg/dL High 70-100 [facility] Comment on above: Performed By: #### 8 5499 ####[facility] [place] [address], [place] Glucose [Mass/Vol] 198 mg/dL High 70-100 [facility] Comment on above: Performed By: #### 5 7307, 12067 #### [facility] [address] [place] [address], [place] Glucose [Mass/Vol] 265 mg/dL High 70-100 [facility] Comment on above: Performed By: #### 8 5499 #### [facility] [address] [address], [facility] Glucose [Mass/Vol] 305 mg/dL High 70-100 [facility] Comment on above: Performed By: #### 5 7307, 78976 #### [facility] [address] [place] [address], [facility] Glucose [Mass/Vol] 301 mg/dL High 70-100 [facility] Comment on above: Performed By: #### 5 0103 #### [facility] [address] [facility] [place] [address], [facility] PORTABLE CHEST 1 VIEWon 06-27 PORTABLE CHEST 1 VIEW [facility] Department of Radiology [address] [place] [id number] Patient Name: RASHARD LYMAN : 1960 Sex: M Age: Race: White Pt. Location: [address] [place] [address] Patient Status: I Ordered Date: 07/14/2020 1:40:00 [...] above Electronically signed: Patricia Damon. Transcribed by: [email or web address], User Resident: Electronically Signed by: PATRICIA DAMON @ 07/14/2020 03:24 PM Normal [facility] Comment on above: Order Comment: Evalu ate for Pneumothorax PORTABLE CHEST 1 VIEW [facility] Department of Radiology [address] [place] [id number] Patient Name: RASHARD LYMAN : 1960 Sex: M Age: Race: White Pt. Location: [address] [place] [address] Patient Status: I Ordered Date: 07/13/2020 11:35:00 [...] reports Electronically signed: Valdemar Foster. Transcribed by: [email or web address], User Resident: [email or web address] Electronically Signed by: VALDEMAR FOSTER @ 07/14/2020 06:31 AM I personally read this/these film(s) with this resident Normal [facility] Comment on above: Order Comment: evalu ate for Effusion PROTEIN ELECT Truong 07-14-2020 Protein [Mass/Vol] 6.0 g/dL Normal 6.0-8.3 [facility] Comment on above: Performed By: #### 3 0318 #### [facility] [address] [place] [address], [place] PROTEIN ELECT Normal [facility] Comment on above: Result Comment: Decr eased albumin and elevated alpha 1 and 2 suggests acute inflammation. Performed By: #### 3 0318 #### [facility] [address] [place] [address], [place] PROTEIN ELECT URon 1 PROTEIN ELECT Urine protein electrophoresis suggests a nonselective nephropathy. Normal [facility] Comment on above: Performed By: #### 3 1944 #### [facility] [address] [place] [address], [place] PROTEIN TOTAL BLOODon 2020 Protein [Mass/Vol] 6.7 g/dL Normal 6.0-8.3 [facility] Comment on above: Order Comment: Left Peural Effusion Performed By: #### 3 0318 #### [facility] [address] [place] [address], [place] PROTHROMBIN TIMEon 1 INR Coag (PPP) [Relative time] 1.12 {INR} Normal 0.91-1.16 [facility] Comment on above: Order Comment: [...] CHEST 1995;[id number]. Performed By: #### 5 7307, 76533 #### [facility] [address] [place] [address], [facility] PT Coag (PPP) [Time] 14.4 s Normal 12.3-14.8 [facility] Comment on above: Order Comment: No: D o not add to previous draw Result Comment: ALL RESULTS MUST BE INTERPRETED WITH RESPECT TO BLOOD DRAWING ARTIFACT OR DILUTION ERROR OF ANTICOAGULANT AT THE TIME OF SAMPLING. Performed By: #### 5 7307, 40545 #### [facility] [address] [place] [address], [facility] SEDIMENTATION RATEon 021 SED RATE 32 mm/hr High 0-10 [facility] Comment on above: Performed By: #### 8 [id number] #### [facility] [address] [place] [address], [facility] SODIUM URINE RANDOMon 2020 Sodium (U) [Moles/Vol] 59 mmol/L Normal [facility] Comment on above: Order Comment: No: D o not add to previous draw Result Comment: Ther e are no established reference values for random urine specimens Performed By: #### 8 [id number] #### [facility] [address] [place] [address], [facility] T PROT FLUIDon 07-14-2020 Protein [Mass/Vol] 3.6 g/dL Normal [facility] Comment on above: Result Comment: The reference range and other method performance specifications have not been established for this test in fluids. the test result should be integrated into the clinical context for interpretation. Performed By: #### 3 1944 #### [facility] [address] [place] [address], [facility] T PROT UR Loretta 07-14-2020 U TOTAL PROTEIN 859.0 mg/dL Normal [facility] Comment on above: Order Comment: No: D o not add to previous draw Result Comment: Ther e are no established reference values for random urine specimens Performed By: #### 8 [id number] #### [facility] [address] [place] [address], [facility] Performed By: #### 3 1944 #### [facility] [address] [place] [address], [facility] TROPONIN-Ion 07-14-2020 Troponin I.cardiac [Mass/Vol] 0.09 ng/mL High 0.00-0.04 [facility] Comment on above: Order Comment: No: D o not add to previous draw Result Comment: REFE RENCE RANGES: 0.00 - 0.04 ng/ml NORMAL 0.05 - 0.50 ng/ml INDETERMINATE > 0.50 ng/ml CONSISTENT WITH AN M.I. Performed By: #### 8 [id number] #### [facility] [address] [place] [address], [facility] Troponin I.cardiac [Mass/Vol] 0.07 ng/mL High 0.00-0.04 [facility] Comment on above: Order Comment: No: D o not add to previous draw Result Comment: REFE RENCE RANGES: 0.00 - 0.04 ng/ml NORMAL 0.05 - 0.50 ng/ml INDETERMINATE > 0.50 ng/ml CONSISTENT WITH AN M.I. Performed By: #### 8 [id number] #### [facility] [address] [place] [address], [facility] TSH3on 07-14-2020 TSH 3RD GENERATION 3.28 uIU/mL Normal 0.34-5.60 [facility] Comment on above: Order Comment: No: D o not add to previous draw Performed By: #### 8 [id number] #### [facility] [address] [place] [address], [facility] URIC ACID BLOODon 07-14-2020 Urate [Mass/Vol] 7.1 mg/dL Normal 4.4-7.6 [facility] Comment on above: Performed By: #### 8 [id number] #### [facility] [address] [place] [address], [place] URINALYSIS REFLEXon 07-15-19 21 Appearance (U) SL CLOUDY Abnormal CLEAR [facility] Comment on above: Order Comment: Left Peural Effusion Performed By: #### 3 0318 #### [facility] [address] [place] [address], [place] Bilirubin Ql (U) Negative Normal NEGATIVE [facility] Comment on above: Order Comment: Left Peural Effusion Performed By: #### 3 0318 #### [facility] [address] [place] [address], [place] Color (U) YELLOW Normal YELLOW [facility] Comment on above: Order Comment: Left Peural Effusion Performed By: #### 3 0318 #### [facility] [address] [place] [address], [place] EPIS FEW Normal FEW,OCC,NONE SEEN [facility] Comment on above: Order Comment: Left Peural Effusion Performed By: #### 3 0318 #### [facility] [address] [place] [address], [place] Glucose Ql (U) >=500 Abnormal NEGATIVE [facility] Comment on above: Order Comment: Left Peural Effusion Performed By: #### 3 0318 #### [facility] [address] [place] [address], [place] Hemoglobin Ql (U) TRACE Abnormal NEGATIVE [facility] Comment on above: Order Comment: Left Peural Effusion Performed By: #### 3 0318 #### [facility] [address] [place] [address], [place] KETONE TRACE Abnormal NEGATIVE [facility] Comment on above: Order Comment: Left Peural Effusion Performed By: #### 3 0318 #### [facility] [address] [place] [address], [place] LEUK JACIEL Negative Normal NEGATIVE [facility] Comment on above: Order Comment: Left Peural Effusion Performed By: #### 3 0318 #### [facility] [address] [place] [address], [facility] MUCUS THREADS OCC Abnormal NONE SEEN [facility] Comment on above: Order Comment: Left Peural Effusion Performed By: #### 3 0318 #### [facility] [address] [place] [address], [place] Nitrite Ql (U) Negative Normal NEGATIVE [facility] Comment on above: Order Comment: Left Peural Effusion Performed By: #### 3 0318 #### [facility] [address] [place] [address], [place] pH (U) 6.0 [pH] Normal 5.0-8.0 [facility] Comment on above: Order Comment: Left Peural Effusion Performed By: #### 3 0318 #### [facility] [address] [place] [address], [place] Protein Ql (U) >=500 Abnormal NEGATIVE [facility] Comment on above: Order Comment: Left Peural Effusion Performed By: #### 3 0318 #### [facility] [address] [facility] [place] [address], [facility] RBC 0-2 Abnormal NONE SEEN [facility] Comment on above: Order Comment: Left Peural Effusion Performed By: #### 3 0318 #### [facility] [address] [facility]. [address] SPEC GRAV 1.017 Normal 1.015-1.020 [facility] Comment on above: Order Comment: Left Peural Effusion Performed By: #### 3 0318 #### [facility] [address] [facility]. [address] WBC UA 3-5 Abnormal NONE SEEN [facility] Comment on above: Order Comment: Left Peural Effusion Performed By: #### 3 0318 #### [facility] [address] Vital Signs Date Time Vital Sign Value Performing Clinician Facility 03-21-2021 15:40-0500 Body height 193.04 cm Judahmani Gomesangela Other [employer] Other 03-21-2021 15:40-0500 Body mass index (BMI) [Ratio] 39.02 kg/m2 Judahmani Jaki Other [employer] Other 03-21-2021 15:40-0500 Body temperature 97.8 [degF] Kike Pollack Other [employer] Other 03-21-2021 15:40-0500 Body weight 145.42 kg Kike Pollack Other [employer] Other 03-21-2021 15:40-0500 Diastolic blood pressure 84 mm[Hg] Kike Pollack Other [employer] Other 03-21-2021 15:40-0500 Respiratory rate 18 /min Kike Pollack Other [employer] Other 03-21-2021 15:40-0500 SaO2% (BldA) [Mass fraction] 96 % Kike Pollack Other [employer] Other 03-21-2021 15:40-0500 Systolic blood pressure 137 mm[Hg] Kike Pollack Other [employer] Other 08-25-2020 12:24-0400 Heart rate 82 /min Jose Valone Work Phone: [facility] 08-25-2020 12:24-0400 Respiratory rate 20 /min Jose Valone Work Phone: [facility] 08-25-2020 11:17-0400 Body temperature 98.7 [degF] Jose Valone Work Phone: [facility] 08-25-2020 11:17-0400 Diastolic blood pressure 94 mm[Hg] Jose Valone Work Phone: [facility] 08-25-2020 11:17-0400 SaO2% (BldA) [Mass fraction] 96 % Jose Valone Work Phone: [facility] 08-25-2020 11:17-0400 Systolic blood pressure 183 mm[Hg] Jose Valone Work Phone: [facility] 08-25-2020 06:00-0400 Body weight 160.5 kg Jose Valone Work Phone: [facility] 08-19-2020 14:17-0400 Body height 193.04 cm Jose Valone Work Phone: [facility] 08-18-2020 21:22-0400 Body height 193.04 cm Jose Valone Work Phone: [facility] 08-18-2020 21:22-0400 Body mass index (BMI) [Ratio] 43.8 kg/m2 Jose Forteone Work Phone: [facility] 08-18-2020 21:22-0400 Body temperature 97.6 [degF] Jose Forteone Work Phone: [facility] 08-18-2020 21:22-0400 Body weight 163.3 kg Jose Forteone Work Phone: [facility] 08-18-2020 21:22-0400 Diastolic blood pressure 80 mm[Hg] Jose Valone Work Phone: [facility] 08-18-2020 21:22-0400 Heart rate 105 /min Jose Forteone Work Phone: [facility] 08-18-2020 21:22-0400 Respiratory rate 18 /min Jose Juarez Work Phone: [facility] 08-18-2020 21:22-0400 SaO2% (BldA) [Mass fraction] 94 % Jose Juarez Work Phone: [facility] 08-18-2020 21:22-0400 Systolic blood pressure 160 mm[Hg] Jose Juarez Work Phone: [facility] Encounters Encounter Date Encounter Type Care Provider Facility Start: 12-16-2023 End: 12-16-2023 ambulatory JOSE JUAREZ [facility] Start: 11-19-2023 End: 11-19-2023 ambulatory JOSE JUAREZ [facility] Start: 10-23-2023 End: 10-23-2023 ambulatory JOSE JUAREZ [facility] Start: 09-03-2023 End: 09-03-2023 ambulatory JOSE JUAREZ [facility] Start: 07-31-2023 End: 07-31-2023 ambulatory JOSE JURAEZ [facility] Start: 07-02-2023 End: 07-02-2023 ambulatory JOSE JUAREZ [facility] Start: 06-04-2023 End: 06-04-2023 ambulatory JOSE JUAREZ [facility] Start: 05-31-2023 End: 06-01-2023 [facility] Start: 05-06-2023 End: 05-06-2023 ambulatory JOSE JUAREZ JR [facility] Start: 04-19-2023 End: 04-19-2023 ambulatory [facility] Start: 02-27-2023 End: 02-28-2023 ambulatory CHINO Hopson [facility] Start: 09-11-2022 End: 09-12-2022 ambulatory CHINO Hopson [facility] Facility:H1 Start: 08-28-2022 End: 08-29-2022 ambulatory CHINO Hopson [facility] Facility:H1 Start: 08-24-2022 End: 08-25-[address] JOSE JUAREZ Facility:H1 Start: 08-20-2022 End: 08-21-[address] JOSE JUAREZ Facility:H1 Start: 08-19-2022 Encounter for preprocedural cardiovascular examination [facility] Start: 08-19-2022 Encounter for preprocedural laboratory examination [facility] Start: 08-19-2022 Encounter for preprocedural respiratory examination [facility] Start: 08-15-2022 End: 08-16-[address] [...] Facility:H1 Start: 01-18-2022 End: 01-19-2022 ambulatory CHINO GARCIAANDER Facility:H1 Start: 01-15-2022 End: 01-15-2022 ambulatory CHINO D HIGHLANDER Facility:H1 Start: 01-12-2022 End: 01-13-2022 ambulatory CHINO D HIGHLANDER Facility:H1 Start: 01-10-2022 End: 01-11-2022 ambulatory CHINO D HIGHLANDER Facility:H1 Start: 01-02-2022 End: 01-03-2022 ambulatory CHINO D HIGHLANDER Facility:H1 Start: 12-25-2021 End: 12-26-2021 ambulatory CHINO D HIGHLANDER Facility:H1 Start: 12-21-2021 End: 12-22-2021 ambulatory SHAIKH Patricia DAVIS Facility:H1 Start: 12-18-2021 End: 12-19-2021 ambulatory CHINO D JOSEANDER Facility:H1 Start: 12-15-2021 End: 12-16-2021 ambulatory CHINO Mark Anthony [facility] Facility:H1 Start: 12-11-2021 End: 12-12-2021 ambulatory [facility] Facility:H1 Start: 11-30-2021 End: 12-01-[address] CARLOS EDUARDO SU . Facility:H1 Start: 11-22-2021 End: 11-23-[address] CARLOS EDUARDO SU . Facility:H1 Start: 11-21-2021 End: 11-22-2021 ambulatory CHINO Mark Anthony [facility] Facility:H1 Start: 11-14-[address] CARLOS EDUARDO SU . Faci lity:H1 Start: 11-13-2021 End: 11-14-2021 ambulatory CHINO [facility] Facility:H1 Start: 11-07-2021 End: 11-08-2021 ambulatory CHINO [facility] Facility:H1 Start: 10-31-2021 End: 11-01-2021 ambulatory [facility]INO [facility] Facility:H1 Start: 10-24-2021 End: 10-25-2021 ambulatory CHINO [facility] Facility:H1 Start: 10-17-2021 End: 10-18-2021 ambulatory CHINO [facility] Facility:H1 Start: 10-09-2021 End: 10-10-2021 ambulatory [facility] Facility:H1 Start: 03-21-2021 End: 03-21-2021 ambulatory Kike Pollack Other [employer] Other Start: 03-21-2021 Office outpatient vi sit 25 minutes Kike Pollack [facility] Start: 10-20-2020 End: 10-21-2020 ambulatory UNKNOWN PROVIDER Facility:[facility] Start: 09-28-2020 End: 09-28-2020 Patient encounter procedure Jose Juarez Work Phone: -Respiratory Therapy Start: 09-06-2020 End: 09-06-2020 Patient encounter procedure Jose Juarez Work Phone: -Electrodiagnostics Start: 08-18-2020 End: 08-25-2020 Evaluation and management of inpatient Jose Juarez Work Phone: -[facility] Start: 07-13-2020 End: 07-22-2020 Evaluation and management of inpatient SARMED MERLENE Facility:[facility] Procedures Date Procedure Procedure Detail Performing [...] Work Phone: Start: 08-18-2020 Plain chest X-ray Myrtlel uli Juarez Work Phone: Start: 08-18-2020 Blood [...] identified in Blood by Culture Blood Culture [facility] Patient referral [facility] Immunizations Immunization Date Immunization Notes Care Provider Fa cility 05-27-2015 influenza, seasonal, injectable Kike Pollack Other [employer] Other 05-27-2015 pneumococcal polysaccharide vaccine, 23 valent Kike Pollack Other [employer] Other Payers Date Payer Category Payer Unknown [id number] 1960 Unknown [id number] 2.16.8 40.1.009778.3.579.2.647 1960 Unknown [id number] 2.16. 840.1.004051.3.579.2.732 1960 Unknown [id number] 2.16.84 0.1.333749.3.579.2.593 1960 Unknown [id number] 2.16.84 0.1.509875.3.579.2.593 1960 Unknown [id number] 2.16.84 0.1.147359.3.579.2.593 1960 Unknown [id number] 2.16.84 0.1.971214.3.579.2.593 1960 Unknown [id number] 2.16.84 0.1.926799.3.579.2.593 1960 Unknown [id number] 2.16.84 0.1.332057.3.579.2.593 1960 Unknown [id number] 2.16.84 0.1.679643.3.579.2.593 1960 Unknown [id number] 2.16.84 0.1.052606.3.579.2.593 1960 Unknown [id number] 2.16.84 0.1.180863.3.579.2.593 1960 Unknown [id number] 2.16.84 0.1.765759.3.579.2.593 1960 Unknown [id number] 2.16.84 0.1.673749.3.579.2.593 1960 Unknown [id number] 2.16.84 0.1.238940.3.579.2.593 1960 Unknown [id number] 2.16.84 0.1.300429.3.579.2.593 1960 Unknown [id number] 2.16.84 0.1.888379.3.579.2.593 1960 Unknown [id number] 2.16.84 0.1.277057.3.579.2.593 1960 Unknown [id number] 2.16.84 0.1.547162.3.579.2.593 1960 Unknown [id number] 2.16.84 0.1.318463.3.579.2.593 1960 Unknown [id number] 2.16.84 0.1.049449.3.579.2.593 1960 Unknown [id number] 2.16.84 0.1.653949.3.579.2.593 1960 Unknown [id number] 2.16.84 0.1.246714.3.579.2.593 1960 Unknown [id number] 2.16.84 0.1.120182.3.579.2.593 1960 Unknown [id number] 2.16.84 0.1.811201.3.579.2.593 1960 Unknown [id number] 2.16.84 0.1.813834.3.579.2.593 1960 Unknown [id number] 2.16.84 0.1.843479.3.579.2.593 1960 Unknown [id number] 2.16.84 0.1.535550.3.579.2.593 1960 Unknown [id number] 2.16.84 0.1.270416.3.579.2.593 1960 Unknown [id number] 2.16.84 0.1.956188.3.579.2.593 1960 Unknown [id number] 2.16.84 0.1.474466.3.579.2.593 1960 Unknown [id number] 2.16.84 0.1.646451.3.579.2.593 1960 Unknown [id number] 2.16.84 0.1.888558.3.579.2.593 1960 Unknown [id number] 2.16.84 0.1.875857.3.579.2.593 1960 Unknown [id number] 2.16.84 0.1.042669.3.579.2.593 1960 Unknown [id number] 2.16.84 0.1.619247.3.579.2.593 1960 Unknown [id number] 2.16.84 0.1.072565.3.579.2.593 1960 Unknown [id number] 2.16.84 0.1.393550.3.579.2.593 1960 Unknown [id number] 2.16.84 0.1.821897.3.579.2.593 1960 Unknown [id number] 2.16.84 0.1.203146.3.579.2.593 1960 Unknown [id number] 2.16.84 0.1.164811.3.579.2.593 1960 Unknown [id number] 2.16.84 0.1.443272.3.579.2.593 1960 Unknown [id number] 2.16.84 0.1.897142.3.579.2.593 1960 Unknown [id number] 2.16.84 0.1.471467.3.579.2.593 1960 Unknown [id number] 2.16.84 0.1.276024.3.579.2.593 1960 Unknown [id number] 2.16.84 0.1.665210.3.579.2.593 1960 Unknown [id number] 2.16.84 0.1.600659.3.579.2.593 1960 Unknown [id number] 2.16.8 40.1.808279.3.579.2.1286 1960 Unknown [id number] 2.16.8 40.1.880496.3.579.2.1286 1960 Unknown [id number] 2.16.8 40.1.281519.3.579.2.1286 1960 Unknown [id number] 2.16.8 40.1.770975.3.579.2.1286 1960 Unknown [id number] 2.16.8 40.1.900780.3.579.2.1286 1960 Unknown [id number] 2.16.8 40.1.065941.3.579.2.1286 1960 Unknown [id number] 2.16.8 40.1.905713.3.579.2.1286 1960 Unknown [id number] 2.16.84 0.1.990342.3.579.2.1286 1960 Unknown [id number] 2.16.84 0.1.056723.3.579.2.1286 1959 Unknown [id number] Medicare Self Pay [id number] Self-pay Self Pay [id number] Social History Date Type Detail Facility Tobacco smoking status INIS Unknown if ever smoked [facility] Start: 1960 Sex Assigned At Male [facility] Start: 08-18-2020 Tobacco smoking status NHIS Unknown if ever smoked [facility] Start: 08-22-2020 Tobacco smoking status NHIS Never smoked tobacco (finding) [facility] Sex Assigned At Sex Assigned At [facility] [employer] Other Goals Date Patient Goal Desired Activity /State Functional Status Date Assessment Result Facility 08-25-2020 Functional status Patient at Baseline [facility] Mental Status Date Assessment Result Facility 08-25-2020 Cognitive function Cognitive Sta tus Patient at Baseline [facility] Clinical Notes 07-15-2020 to 08-20-2022 [...] PRISCA SANDERSON Date: 2022-08-20 13:00 [facility] 08-15-2022 Note EXAM: XR CHEST 2 [...] CHINO CABALLERO Date: 2022-08-15 15:06 [facility] 08-01-2022 Note PROCEDURE: XR FOOT L [...] authenticated by: JAMESON SALGUERO Date: 2022-08-01 07:49 [facility] 03-01-2022 Note CONSULTATION CONSULTATION DATE: 03/01/2022 [...] with certain activities such as standing, walking, 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 [facility] 03-01-2022 Note CONSULTATION PROCEDURE DATE: 03/01/2022 PREOPERATIVE [...] pattern and patient tolerated procedure well. [facility] 12-22-2021 Note PROCEDURE: XR ANKLE LT MIN [...] by: PRISCA SANDERSON Date: 2021-12-22 10:12 [facility] 12-22-2021 Note PROCEDURE: XR ANKLE LT MIN [...] by: PRISCA SANDERSON Date: 2021-12-22 10:12 [facility] 12-22-2021 Note PROCEDURE: XR ANKLE LT MIN [...] PRISCA SANDERSON Date: 2021-12-22 10:12 [facility] 12-22-2021 Note PROCEDURE: XR ANKLE LT 2V HISTORY: Pain ; left ankle external fixation application COMPARISON: None. FINDINGS: BONES:3 intraoperative spot fluoroscopic images demonstrate external fixation device surrounding the left ankle. IMPRESSION: External fixation device application. Electronically authenticated by: PRISCA SANDERSON Date: 2021-12-22 10:07 [facility] 12-12-2021 Note PROCEDURE: XR FOOT L [...] authenticated by: PRISCA SANDERSON Date: 2021-12-12 08:04 [facility] 11-30-2021 Note CONSULTATION The patient returns [...] in clinic in three months' time. [facility] 11-22-2021 Note CONSULTATION CONSULTATION DATE: 11/22/2021 HISTORY [...] to the clinic to receive those. [facility] 11-14-2021 Note PROCEDURE: XR FOOT L T [...] by: PRISCA SANDERSON Date: 2021-11-14 15:42 [facility] 11-07-2021 Note PROCEDURE: XR FOOT L T [...] by: JAMESON SALGUERO Date: 2021-11-07 19:28 [facility] 03-21-2021 Evaluation note Encounter Date Diagnosis Assessment [...] takes midodrine as well as stated above. [employer] Other 03-27-2021 NoteMR#: [id number] I [facility] Pt. Name: Rashard Lyman Admitted: [...] chest pain. Also, there is mention on [place] records of large inferior/lateral wall abnormality in [...] ON DISCHARGE: A (more content not included)...[facility]03-19-2021 NoteMR#: [id number] [facility] Pt. Name: Rashard Lyman Surgery Date: 07/14/2020 Room #: [id number] Date of : 1960 PROCEDURE NOTE ATTENDING: [...] Pham MD Date Trans: 07/15/2020 01:32 P/ [id number] cc: Nima Wynne MD [address] [place] [address] [id number] NoteMR#: [id number] [facility] Pt. Name: Rashard Lyman Surgery Date: 07/14/2020 Room #: [id number] Date of : 1960 PROCEDURE NOTE ATTENDING: Nima Wynne MD Procedure: Left sided US guided Thoracentesis Pre-procedure Diagnosis: Left pleural effusion Post-procedure Diagnosis: same as above Prior to Procedure: Informed Consent:The risks, benefits, indications, potential complications, and alternatives were explained to the patient/family and informed consent obtained Attending Staff: Nima Wynne Resident/Fellow/CLINICAL CASE MANAGER: Davis Pham Indications: Nura Munoz is [...] Wynne MD Date Trans: 07/15/2020 12:53 P/ [id number] [facility] Diagnosis Onset Date Resolution Status Hyperglycemia acute Pneumonia acute Psoriasis acute 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 acute CKD (chronic kidney disease) stage 4, GFR 15-29 ml/min chronic COPD (chronic obstructive pulmonary disease) chronic 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 GERD (gastroesophageal reflux disease) chronic Obesities, morbid chronic Peripheral vascular occlusive disease chronic Status post amputation of toe of right foot [facility]* Diagnosis Onset Date Resolution Status MARISOL (acute kidney injury) ac [place] Anemia of renal disease acut e Atelectasis of left lung acu te Fibrothorax acute History of pleural effusion acute Metabolic acidosis acute Pericarditis acute Pleuritic chest pain acute Psoriasis acute 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 acute CKD (chronic kidney disease) stage 4, GFR 15-29 ml/min chronic COPD (chronic obstructive pulmonary disease) chronic 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 GERD (gastroesophageal reflux disease) chronic Hypertension chronic [id number] chronic Obesities, morbid chronic Peripheral vascular occlusive disease chronic Status post amputation of toe of right foot [facility] general Narrative - Reported* Type [...] HIS LOWER BACK Hospitalization History see above [employer] Other Hospital Discharge instructions Additional Instructions You are scheduled for an outpatient follow up ECHOCARDIOGRAM in 2 weeks at [facility] to re-assess your pericardial effusions on [...] knee Educate on high risk fall precautions [facility] Ass[facility]ments No Assessments Information [...] 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 GERD (gastroesophageal reflux disease) Hypertension [id number] Obesities, morbid Peripheral vascular occlusive disease Status [...] 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 GERD (gastroesophageal reflux disease) Hypertension [id number] Obesities, morbid Peripheral vascular occlusive disease Status [...] 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 GERD (gastroesophageal reflux disease) Hypertension [id number] Obesities, morbid Peripheral vascular occlusive disease Status [...] and content) DATE CREATED AUTHOR 09/11/[address] [facility] DATE CREATED AUTHOR AUTHOR'S ORGANIZ ATION 10/21/2020 [employer] DATE CREATED AUTHOR AUTHOR'S ORGANIZ ATION 08/03/2021 [facility] DATE CREATED AUTHOR AUTHOR'S ORGANIZ ATION 10/05/2022 [facility] DATE CREATED AUTHOR AUTHOR'S ORGANIZ ATION 06/03/2023 [facility] DATE CREATED AUTHOR AUTHOR'S ORGANIZ ATION 11/22/2023 [facility] DATE CREATED AUTHOR AUTHOR'S ORGANSUDARSHAN ATTHEO 12/17/2023 [facility] Goals (unrecognized section and content) Goals [...] BE BASED ON THE PRIMARY CLINICAL RECORDS. [facility] [employer] provides no warranty or guarantee of the accuracy or completeness of information in this document.
[2023-12-24] MEDS: PIPERACILLIN SODIUM/TAZOBACTAM 3.375 GM in 0.9 % SODIUM CHLORIDE 50 ML IV (19:32)
[2023-12-24] MEDS: 0.9 % SODIUM CHLORIDE 1,000 ML 100 ML IV (19:38)
--- NOTE | 2023-12-24 19:39 | ED_ITS ---
HPI HPI - General Adult General Chief complaint: Extremity Problem, Nontraumatic Stated complaint: wound check Time Seen by Provider: 12/24/23 15:44 Source: patient Mode of arrival: walk-in Limitations: no limitations History of Present Illness HPI narrative: 3-year-old male presents to the emergency department with with complaint of redness to his left lower extremity. Patient with history of diabetes, neuropathy, does not have feeling in this leg. He was evaluated by home health yesterday who expressed concern about the redness and felt he needed to come in for further evaluation, treatment. Due to transportation, he was unable to come in until today. Patient with history of partial foot amputation, ulceration underneath his foot. Does have history of chronic kidney disease. He is currently not on dialysis. Denies any fever, chills, pain, drainage. Quality:?As above Severity:?Moderate Timing:?1 day, worsening Context: Normal setting and activity? Modifying factors:?None Associated symptoms: As above Related Data Home Medications ?Medication ?Instructions ?Recorded ?Confirmed apremilast 30 mg tablet (Otezla) 30 mg PO QDAY 01/28/23 12/24/23 montelukast 10 mg tablet 10 mg PO .QHS 01/28/23 12/24/23 rosuvastatin 20 mg tablet 20 mg PO QPM 01/28/23 12/24/23 vitamin B complex and vitamin C 1 cap PO QDAY 01/28/23 12/24/23 no.20-folic acid 1 mg capsule (Renal Caps) famotidine 40 mg tablet (Pepcid) 40 mg PO .qhs 01/29/23 12/24/23 insulin degludec 200 unit/mL (3 100 unit subcut DAILY 01/29/23 12/24/23 mL) subcutaneous pen (Tresiba FlexTouch U-200 insulin) insulin lispro 100 unit/mL 1 sliding scale dose subcut AC 01/29/23 12/24/23 subcutaneous pen (Humalog KwikPen (U-100) Insulin) tiotropium bromide 18 mcg capsule 1 cap inhalation DAILY PRN 01/29/23 12/24/23 with inhalation device (Spiriva shortness of breath or wheezing with HandiHaler) bupropion HCl 300 mg 24 hr tablet, 300 mg PO QDAY 12/24/23 12/24/23 extended release duloxetine 60 mg capsule,delayed 60 mg PO DAILY 12/24/23 12/24/23 release (Cymbalta) empagliflozin 25 mg tablet 12.5 mg PO DAILY 12/24/23 12/24/23 (Jardiance) esomeprazole magnesium 40 mg 40 mg PO QDAY 12/24/23 12/24/23 capsule,delayed release ferrous sulfate 325 mg (65 mg 325 mg PO .COMPLEX 12/24/23 12/24/23 iron) tablet (Feosol) finerenone 20 mg tablet (Kerendia) 20 mg PO QDAY 12/24/23 12/24/23 magnesium 250 mg tablet 250 mg PO DAILY 12/24/23 12/24/23 multivitamin with minerals-folic 1 tab PO QDAY 12/24/23 12/24/23 acid 400 mcg-lycopene 370 mcg tablet (One-A-Day Men's 50 Plus) tirzepatide 2.5 mg/0.5 mL 2.5 mg subcut QWEEK 12/24/23 12/24/23 subcutaneous pen injector (Audra) Allergies Allergy/AdvReac Type Severity Reaction Status Date / Time No Known Drug Allergies Allergy Verified 12/24/23 15:49 Opioid HPI Opioid Management Most Recent Opioid Data: Last Pain Scale 4 12/24/23 16:55 Last Pain Assessment 12/24/23 19:00 Last ORT Total Score 0 12/24/23 18:56 Last ORT Risk Category Low Risk 12/24/23 18:56 Review of Systems ROS Constitutional Denies: fever, chills or fatigue Cardiovascular Denies: chest pain or edema Respiratory Denies: shortness of breath Gastrointestinal Denies: abdominal pain or nausea Genitourinary Reports: other (States he does make urine) Musculoskeletal Reports: other (leg redness, warmth); Denies: joint pain Neurological Reports: numbness in extremities (chronic, unchanged, hx of neuropathy); Denies: headache or dizziness Endocrine Denies: fatigue [facility] Medical History (Updated 12/24/23 @ 19:52 by KIM Lagunas) Chronic wound ?T14.8XXA - Other injury of unspecified body region, initial encounter (ICD- 10) Immunocompromised ?D84.9 - Immunodeficiency, unspecified (ICD-10) Psoriasis ?L40.9 - Psoriasis, unspecified (ICD-10) Sepsis ?A41.9 - Sepsis, unspecified organism (ICD-10) Arteriovenous fistula of right upper extremity ?I77.0 - Arteriovenous fistula, acquired (ICD-10) Chronic kidney disease ?N18.9 - Chronic kidney disease, unspecified (ICD-10) Hyperlipidemia ?E78.5 - Hyperlipidemia, unspecified (ICD-10) Diabetes ?E11.9 - Type 2 diabetes mellitus without complications (ICD-10) Cellulitis of left leg ?L03.116 - Cellulitis of left lower limb (ICD-10) Surgical History History of transmetatarsal amputation of foot ?Z89.439 - Acquired absence of unspecified foot (ICD-10) History of appendectomy ?Z90.49 - Acquired absence of other specified parts of digestive tract (ICD- 10) History of cholecystectomy ?Z90.49 - Acquired absence of other specified parts of digestive tract (ICD- 10) Amputation of left great toe ?S98.112A - Complete traumatic amputation of left great toe, initial encounter (ICD-10) Family History Mother Family history of CHF (congestive heart failure) Family history of diabetes mellitus Family history of hypertension Grandfather Family history of stroke Social History (Updated 12/24/23 @ 19:51 by Patricia Mattson) Within the past year, how often did you have a drink containing alcohol: never Within the past year, how many standard drinks containing alcohol did you have on a typical day: 1 or 2 Within the past year, how often did you have six or more drinks on one occasion: never Total score: 0 Score interpretation: A score less than 4 is consistent with normal alcohol consumption. Smoking status: Current some day smoker Non-prescribed substance use: denies use Previous occupational history: disabled Highest level of school completed/degree received: 11th grade Are you now , , , , never or living with a partner: In a typical week, how many times do you talk on the telephone with family, frie nds, or neighbors: 3 or more times per week How often do you get together with friends or relatives: 3 or more times per week How often do you attend temple or roman catholic services: never Do you belong to any clubs or organizations such as temple groups unions, fraternal or athletic groups, or school groups: no Total score: 2 Score interpretation: A score of greater than or equal to 2 indicates the lowest level of social isolation. Little interest or pleasure in doing things: not at all Feeling down, depressed, or hopeless: not at all Feel stressed/tense/nervous/anxious/difficulty sleeping: not at all Do you think of yourself as: straight/heterosexual Gender Identity: male Exam Constitutional Vital Signs, click to edit/add: Last Vital Signs Temp 97.6 F 12/24/23 18:56 Pulse 85 12/24/23 19:46 Resp 17 12/24/23 18:56 BP 161/90 H 12/24/23 18:56 Pulse Ox 99 12/24/23 18:56 O2 Del Method Room Air 12/24/23 18:56 Common normals: no apparent distress, oriented x3 and alert HENMT Common normals: normocephalic, head/scalp atraumatic and external nose normal Head and scalp: normocephalic and atraumatic Nose: external nose normal Respiratory Common normals: normal respiratory effort and clear to auscultation bilaterally Auscultation: clear to auscultation bilaterally Cardio Common normals: regular rate, regular rhythm and no murmurs Rate: regular rate Rhythm: regular rhythm GI Common normals: soft to palpation and non-tender Inspection: normal to inspection Palpation: soft Extremity Other: Left lower extremity: There is notable pretibial erythema, warmth running from just below the patella into the ankle. Pulses intact. Nontender. No cyanosis. Patient has decreased sensation secondary to neuropathy, chronic. Neuro Common normals: oriented x3, no focal motor deficits and gait normal Sensorium/orientation: alert Sensory exam: extremities (Decreased sensation to his legs secondary to neuropathy) Motor exam: no tremor noted and no movement abnormalities noted Psych Common normals: thought process normal, cooperative and affect normal Thought process: normal thought process Course Reevaluation(s) Reevaluation #1: Discussed with patient and results, plan, and disposition. Patient and are agreeable. Time: 18:30 Consultations Consultation #1: Patient discussed with Dr. Vazquez who is agreeable with admission Time: 18:39 Vital Signs Vital signs: Vital Signs Temperature 97.6 F 12/24/23 15:49 Pulse Rate 93 H 12/24/23 15:49 Respiratory Rate 16 12/24/23 15:49 Blood Pressure 121/83 12/24/23 15:49 Pulse Oximetry 100 12/24/23 15:49 Oxygen Delivery Method Room Air 12/24/23 15:49 Temperature 97.6 F 12/24/23 18:56 Pulse Rate 85 12/24/23 19:46 Respiratory Rate 17 12/24/23 18:56 Blood Pressure 161/90 H 12/24/23 18:56 Pulse Oximetry 99 12/24/23 18:56 Oxygen Delivery Method Room Air 12/24/23 18:56 Medical Decision Making MDM Narrative Medical decision making narrative: This is a pleasant 63-year-old gentleman who presented to the emergency department with initial, concerned about redness to his left lower extremity. Noted by home health yesterday. Was sent in for evaluation of cellulitis. Denies any fever, chills. On arrival, afebrile, vital signs are, nontoxic, well-appearing patient in no distress. On evaluation of his left lower extremity, he has partial amputation of the forefoot. There is an ulceration to the plantar surface of his foot. Appears clean. No drainage coming from it. He has diffuse pretibial erythema, warmth from below the knee to the ankle. Sensory decreased secondary to neuropathy. Motor intact. Labs reveal leukocytosis of 12.1. No anemia, thrombocytopenia. Patient has a sodium of 129 and an elevated potassium of 5.8. Bicarb 21.7. BUN and creatinine are 51 and 3.73. These appear similar range to prior. Glucose 382. Lactate 0.8. Blood cultures were ordered. He was given dose of vancomycin and Zosyn in the emergency department X-ray imaging per radiologist reveals no acute findings. EKG reveals no acute or concerning changes Hyperkalemia cocktail ordered consisting of sodium bicarb, insulin, glucose, Kayexalate. Otherwise, patient remained stable during ED course History and record review: Discussion with independent historian: Spouse Additional records reviewed: Prior labs, imaging. Prior potassium, renal functions Favor hyperkalemia, chronic renal failure, cellulitis left lower extremity, hyperglycemia EKG changes less likely based on EKG performed in the emergency department Severe sepsis less likely based on laboratory testing, lactate less than 2 Management Discussion with another healthcare provider: Admitting team Additional test and interventions: ECG: See below IV fluids: Hydration Reevaluation: Patient remained stable during ED course. Disposition ? Plan: Patient will be admitted. Condition at time of disposition: stable Critical care time Critical care time: 35 minutes Critical care reason: Severe metabolic abnormality Critical care interventions: IV fluids, consultation with hospitalist, IV antibiotics ? PLEASE NOTE: Portions of the medical record may have been produced using electronic performance improvement coordinator and may contain errors with respect to translation of words which may not have been identified prior to finalization of the chart. Medical Records Medical records reviewed: Yes I reviewed the patient's medical records Lab Data Lab results reviewed: Yes I reviewed the patient's lab results Labs: Lab Results 12/24/23 Range/Units 16:34 WBC 12.1 H (4.0-11.0) 10^3/uL RBC 4.52 L (4.70-6.10) 10^6/uL Hgb 13.2 L (14.0-18.0) g/dL Hct 39.5 L (42.0-54.0) % MCV 87.4 (80.0-94.0) fL MCH 29.2 (25.9-34.0) pg MCHC 33.4 (29.9-35.2) g/dL RDW 13.8 (11.0-15.0) % Plt Count 257 (150-450) 10^3/uL MPV 9.0 L (9.5-13.5) fL Neut % (Auto) 64.4 (43.0-75.0) % Lymph % (Auto) 18.0 L (20.5-60.0) % [place] % (Auto) 9.4 (1.7-12.0) % Eos % (Auto) 5.4 (0.9-7.0) % Baso % (Auto) 0.6 (0.2-2.0) % Neut # (Auto) 7.8 H (1.4-6.5) 10^3/uL Lymph # (Auto) 2.2 (1.2-3.8) 10^3/uL [place] # (Auto) 1.1 H (0.3-0.8) 10^3/uL Eos # (Auto) 0.7 (0.0-0.7) 10^3/uL Baso # (Auto) 0.1 (0.0-0.1) 10^3/uL Abs Immat Gran (auto) 0.27 H (0.00-0.03) 10^3/uL Imm/Tot Granulo (auto) 2.2 H (0.0-0.5) % Sodium 129 L (136-145) mmol/L Potassium 5.8 H (3.5-5.1) mmol/L Chloride 99 (98-107) mmol/L Carbon Dioxide 21.7 (21.0-32.0) mmol/L Anion Gap 14.1 BUN 51.0 H (7.0-18.0) mg/dL Creatinine 3.73 H (0.70-1.30) mg/dL Est GFR ( Amer) 20 L (>=60) Est GFR (Non-Af Amer) 17 L (>=60) BUN/Creatinine Ratio 13.7 Glucose 382 H (74-106) mg/dL Lactate 0.8 (0.4-2.0) mmol/L Calcium 9.4 (8.5-10.1) mg/dL Total Bilirubin 0.4 (0.2-1.0) mg/dL AST 17 (15-37) U/L ALT 30 (16-63) U/L Alkaline Phosphatase 106 (46-116) U/L Total Protein 7.1 (6.4-8.2) g/dL Albumin 2.5 L (3.4-5.0) g/dL Globulin 4.6 g/dL Albumin/Globulin Ratio 0.5 Imaging Data left leg: Radiologist's impression: ITS Impressions Foot X-Ray 12/24/23 16:16 IMPRESSION: No radiographic evidence of acute osteomyelitis. Foot MRI with contrast is recommended if clinically warranted. No acute fracture. Electronically authenticated by: [email or web address] Date: 12/24/2023 17:36 Tibia/Fibula X-Ray 12/24/23 16:16 IMPRESSION: No radiographic evidence of acute osteomyelitis. Foot MRI with contrast is recommended if clinically warranted. No acute fracture. Electronically authenticated by: [email or web address] Date: 12/24/2023 17:36 ECG Data Attestation: I personally reviewed and interpreted this ECG as follows: (EKG performed at 1736 hrs. reveals sinus rhythm at 83 bpm. No ectopy, ischemia noted. No STEMI. Normal axis. No other additional acute changes are noted) Critical Care Time Critical Care Time Critical Care Time: Yes Total Critical Care Time: 35 Attestation: see MDM narrative Discharge Plan Discharge Chief Complaint: Extremity Problem, Nontraumatic Clinical Impression: Acute hyperkalemia, Cellulitis of left leg, Hyperglycemia CKD (chronic kidney disease) Qualifiers: Chronic kidney disease stage: unspecified stage Qualified Code(s): N18.9 - Chronic kidney disease, unspecified Patient Disposition: Admitted As Inpatient Condition: Fair Discharge Date/Time: 12/24/23 18:39
[2023-12-24] MEDS: FAMOTIDINE 20 MG TABLET 40 MG PO (21:11)
[2023-12-24] MEDS: HEPARIN SODIUM (PORCINE) 5,000 UNIT/ML VIAL 5000 UNIT SUBQ (21:11)
[2023-12-24] MEDS: INSULIN ASPART 300 UNIT/3 ML PEN SUBQ (21:11)
[2023-12-24] MEDS: MONTELUKAST SODIUM 10 MG TABLET PO (21:12)
[2023-12-24 21:17] LABS: Glucometer 294 mg/dL (74-106)
[2023-12-24] MEDS: HYDRALAZINE HCL 20 MG/ML VIAL 10 MG IVP (22:56)
[2023-12-25] VITALS (22 sets, daily range): BP systolic 144–191; BP diastolic 74–96; PULSE 82–104; TEMP 36.5–37.1; O2SAT 93–98
--- NOTE | 2023-12-25 00:14 | PC.NURSE ---
blood pressure higher 30 mins after giving IV hydralazine ... will monitor
[2023-12-25] MEDS: 0.9 % SODIUM CHLORIDE 1,000 ML 100 ML IV ×2 (05:17→15:42)
[2023-12-25 05:31] LABS: Basophils Absolute Auto 0.1 10^3/uL (0.0-0.1); Basophils Percent Auto 0.6 % (0.2-2.0); Eosinophils Absolute Auto 0.7 10^3/uL (0.0-0.7); Eosinophils Percent Auto 5.8 % (0.9-7.0); Hematocrit 34.5 % (42.0-54.0); Hemoglobin 11.4 g/dL (14.0-18.0); Immature Granulocytes Abs Auto 0.15 10^3/uL (0.00-0.03); Immature Granulocytes Pct Auto 1.3 % (0.0-0.5); Lymphocytes Percent Auto 17.2 % (20.5-60.0); Mean Corpuscular Volume 87.8 fL (80.0-94.0); Mean Platelet Volume 9.2 fL (9.5-13.5); Monocytes Absolute Auto 1.1 10^3/uL (0.3-0.8); Monocytes Percent Auto 9.2 % (1.7-12.0); Neutrophils Absolute Auto 7.8 10^3/uL (1.4-6.5); Neutrophils Percent Auto 65.9 % (43.0-75.0); Platelet Count 216 10^3/uL (150-450); Red Blood Count 3.93 10^6/uL (4.70-6.10); Red Cell Distribution Width 13.8 % (11.0-15.0); White Blood Count 11.8 10^3/uL (4.0-11.0)
[2023-12-25 05:46] LABS: Alanine Aminotransferase 21 U/L (16-63); Albumin Globulin Ratio 0.5; Alkaline Phosphatase 87 U/L (46-116); Anion Gap 15.2; Aspartate Amino Transferase 15 U/L (15-37); BUN Creatinine Ratio 15.9; Bilirubin Total 0.4 mg/dL (0.2-1.0); Calcium 8.5 mg/dL (8.5-10.1); Carbon Dioxide 20.7 mmol/L (21.0-32.0); Chloride 105 mmol/L (98-107); Estimated GFR (African America 24 (>=60); Estimated GFR (Non-African Ame 20 (>=60); Globulin 3.9 g/dL; Glucose 219 mg/dL (74-106); Magnesium 1.9 mg/dL (1.8-2.4); Phosphorus 3.9 mg/dL (2.6-4.7); Potassium 4.9 mmol/L (3.5-5.1); Sodium 136 mmol/L (136-145); Total Protein 5.9 g/dL (6.4-8.2)
--- OUTSIDE RECORDS SUMMARY | 2023-12-25 05:57 | XMS_ITS | CCD ---
Author Organization [facility] Care Team Providers Care Text Transcriber Name Role Phone Jose Juarez Primary Care Provider [phone] Eugene Morel Admit Provider [phone] Eugene Morel Attending Provider [phone] Gordon Ewing Attending Provider Gautam Bazan Attending Provider SAVANNAH REYNOLDS Admitting Unavailable SAVANNAH REYNOLDS Attending Unavailable JOSE JUAREZ Primary Care Unavailable JOSE JUAREZ Referring Unavailable OK Procedure Practitioner Unavailab TRISHA Ozuna Surgeon Unavailable NMIA WYNNE Surgeon Unavailable OK Procedure Practitioner Unavailab Jose Andres Primary Care Provider Eugene Morel Admit Provider [phone] Gordon Ewing Attending Provider [phone] Gautam Bazan Attending Provider Latrice Lehman [...] Unavailable HIGHLANDER, CHINO Hopson Admitting Unavailable HIGHLANDER, CHNIO Hopson Attending Unavailable VALONE, DR GARCIA Primary [...] (1 source) exenatide Drug Allergy 07-14-19 [facility] NSAIDs (5 sources) celecoxib; Translations: [Celebrex] Drug Allergy 07-14-19 Difficulty Breathing [facility] Phenolphthalein (1 source) Phenolphthalein Drug Allergy 07-14-19 21 [facility] (4 sources) celecoxib; Translations: [celecoxib] Drug Allergy 07-21-19 Difficulty Breathing, bad for kidney [facility] (3 sources) Aspirin; Translations: [ASPIRIN] Drug Allergy 07-21-19 bad for kidney [facility] (1 source) Amoxicillin Drug Allergy 07-09-19 [facility] (1 source) celecoxib Drug Allergy 07-09-19 [facility] (1 source) exenatide Drug Allergy 07-09-19 [facility] (1 source) Phenolphthalein Drug Allergy 07-09-19 [facility] (2 sources) exenatide; Translations: [EXENATIDE] [...] 3 Chronic Other aftercare (7 sources) Other senior care (current) drug therapy; Translations: [OTH USP CURRENT DRUG THERAPY] Onset: 3 Episodic Other [...] Onset: 06-27-2022 Episodic Other aftercare (1 source) termination clerk (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; Translations: [PATIENT CARE REPRESENTATIVE CURRENT USE OF INSULIN] Onset: 01-25-2022 Episodic [...] Urea nitrogen [Mass/Vol] 50 mg/dL High 5-27 [facility] Comment on above: Performed By: #### B ALCON CBCA, 1987-08, 32676-9 #### [facility] ([id number]) [address] [place] [address]6906 #### 43356-6 #### [facility] ([id number]) [address] [facility], [address] [place] [address] CBC AND AUTO DIFFon 12-16-19 24 ABSOLUTE BASOPHIL 0.0 X10E9/L Normal 0.0-0.2 [facility] Comment on above: Performed By: #### B ALCON CBCA, 1987-08, #### [facility] ([id number]) [address] [place] [address] 12501 #### 27681-5 #### [facility] ([id number]) [address] [facility], [address] [place] [address] ABSOLUTE NEUTROPHIL 5.7 X10E9/L Normal 1.5-6.6 [facility] Comment on above: Performed By: #### Laura RONDON, CBCA, 1987-08, 16714-6 #### [facility] ([id number]) [address] [place] [address] 28745 #### 42334-4 #### [facility] ([id number]) [address] [facility], [address] [place] [address] Basophils/100 WBC (Bld) 0.4 % Normal [facility] Comment on above: Performed By: #### Laura RONDON, CBCA, 1987-08, #### [facility] ([id number]) [address] [place] [address] 25242 #### 22981-7 #### [facility] ([id number]) [address] [facility] [facility], [address] [place] [address] Eosinophils (Bld) [#/Vol] 0.4 10*3/uL Normal 0.0-0.4 [facility] Comment on above: Performed By: #### B ALCON, CBCA, 1987-08, #### [facility] ([id number]) [address] [place] [address] 95985 #### 63602-6 #### [facility] ([id number]) [address] [facility], [address] [place] [address] Eosinophils/100 WBC (Bld) 4.8 % Normal [facility] Comment on above: Performed By: #### B ALCON, CBCA, 1987-08, #### [facility] ([id number]) [address] [place] [address] 90219 #### 47711-6 #### [facility] ([id number]) [address] [facility], [address] [place] [address] Erythrocyte distribution width (RBC) [Ratio] 14.7 % Normal 11.5-15.0 [facility] Comment on above: Performed By: #### Laura RONDON, CBCA, 1987-08, 59498-2 #### [facility] ([id number]) [address] [place] [address] 58041 #### 54634-2 #### [facility] ([id number]) [address] [facility], [address] [place] [address] Hematocrit (Bld) [Volume fraction] 39.0 % Normal 39-49 [facility] Comment on above: Performed By: #### Laura RONDON, CBCA, 1987-08, #### [facility] ([id number]) [address] [place] [address] 92188 #### 03832-8 #### [facility] ([id number]) [address], [address] [place] [address] Hemoglobin (Bld) [Mass/Vol] 13.3 g/dL Normal 13.0-17.0 [facility] Comment on above: Performed By: #### B MP, CBCA, 1987-08, #### [facility] ([id number]) [address] [place] [address] 00390 #### 38708-0 #### [facility] ([id number]) [address], [address] [place] [address] Lymphocytes (Bld) [#/Vol] 1.7 10*3/uL Normal 1.0-3.5 [facility] Comment on above: Performed By: #### B ALCON, CBCA, 1987-08, #### [facility] ([id number]) [address] [place] [address] 36805 #### 24305-3 #### [facility] ([id number]) [address] [facility] [facility] [address], [address] [place] [address] Lymphocytes/100 WBC (Bld) 19.3 % Normal [facility] Comment on above: Performed By: #### B ALCON, CBCA, 1987-08, #### [facility] ([id number]) [address] [place] [address] 55194 #### 67961-7 #### [facility] ([id number]) [address], [address] [place] [address] MCH (RBC) [Entitic mass] 29.8 pg Normal 27-34 [facility] Comment on above: Performed By: #### B MP, CBCA, 1987-08, #### [facility] ([id number]) [address] [place] [address] 79414 #### 32998-9 #### [facility] ([id number]) [address], [address] [place] [address] MCHC (RBC) [Mass/Vol] 34.0 g/dL Normal 32-36 [facility] Comment on above: Performed By: #### Laura RONDON, CBCA, 1987-08, #### [facility] ([id number]) [address] [place] [address] 67602 #### 35504-6 #### [facility] ([id number]) [address], [address] [place] [address] MCV (RBC) [Entitic vol] 88 fL Normal 80-100 [facility] Comment on above: Performed By: #### Laura RONDON, CBCA, 1987-08, #### [facility] ([id number]) [address] [place] [address] 62829 #### 59822-9 #### [facility] ([id number]) [address] [facility], [address] [place] [address] Monocytes (Bld) [#/Vol] 0.8 10*3/uL Normal 0-0.9 [facility] Comment on above: Performed By: #### Laura RONDON, CBCA, 1987-08, #### [facility] ([id number]) [address] [place] [address] 05858 #### 52198-3 #### [facility] ([id number]) [address] [facility], [address] [place] [address] Monocytes/100 WBC (Bld) 8.8 % Normal [facility] Comment on above: Performed By: #### Laura RONDON, CBCA, 1987-08, #### [facility] ([id number]) [address] [place] [address] 88449 #### 51663-0 #### [facility] ([id number]) [address], [address] [place] [address] Neutrophils/100 WBC (Bld) 66.7 % Normal [facility] Comment on above: Performed By: #### B MP, CBCA, 1987-08, 88291-4 #### [facility] ([id number]) [address] [place] [address] 78391 #### 38645-9 #### [facility] ([id number]) [address], [address] [place] [address] Platelet mean volume (Bld) [Entitic vol] 7.7 fL Normal 7-12 [facility] Comment on above: Performed By: #### B MP, CBCA, 1987-08, 86965-8 #### [facility] ([id number]) [address] [place] [address] 64368 #### 18244-6 #### [facility] ([id number]) [address], [address] [place] [address] Platelets (Bld) [#/Vol] 286 10*3/uL Normal 150-450 [facility] Comment on above: Performed By: #### B MP, CBCA, 1987-08, 26582-0 #### [facility] ([id number]) [address] [place] [address] 25844 #### 64257-2 #### [facility] ([id number]) [address], [address] [place] [address] RBC COUNT 4.46 X10E12/L Normal 4.10-5.70 [facility] Comment on above: Performed By: #### B MP, CBCA, 1987-08, 27561-8 #### [facility] ([id number]) [address] [place] [address] 54089 #### 43819-8 #### [facility] ([id number]) [address] [address] WBC (Bld) [#/Vol] 8.6 10*3/uL Normal 4.0-11.0 [facility] Comment on above: Performed By: #### B JAMES RONDON, 1987-08, 01352-0 #### [facility] ([id number]) [address] [place] [address] 52876 #### 39755-7 #### [facility] ([id number]) [address] [address] CREATININEon 12-16-2023 Creatinine [Mass/Vol] 3.32 mg/dL High 0.70-1.20 [facility] Comment on above: Result Comment: METH OD TRACEABLE TO IDMS STANDARD Performed By: #### B JAMES RONODN, 1987-08, 39561-0 #### [facility] ([id number]) [address] [place] [address] 13250 #### 65492-3 #### [facility] ([id number]) [address] [address] GFR/1.73 sq M.predicted among non-blacks MDRD (S/P/Bld) [Vol rate/Area] 20 mL/min/{1.73_m2} Low >59 [facility] Comment on above: Result Comment: Reported eGFR is based on the CKD-EPI 2020 equation that does not use a race coefficient. Performed By: #### B JAMES RONDON, 1987-08, 55121-2 #### [facility] ([id number]) [address] [place] [address] 15274 #### 47870-0 #### [facility] ([id number]) [address] [address] ELECTROLYTESon 12-16-2023 Anion gap [Moles/Vol] 8 mmol/L Normal 5-15 [facility] Comment on above: Performed By: #### JAMES Sanchez MP, 1987-08, #### [facility] ([id number]) [address] [place] [address] 82952 #### 97373-6 #### [facility] ([id number]) [address], [address] [place] [address] Chloride [Moles/Vol] 103 mmol/L Normal 98-109 [facility] Comment on above: Performed By: #### JAMES Sanchez MP, 1987-08, #### [facility] ([id number]) [address] [place] [address] 08607 #### 55920-5 #### [facility] ([id number]) [address] [facility], [address] [place] [address] CO2 [Moles/Vol] 18 mmol/L Low 22-32 [facility] Comment on above: Performed By: #### JAMES Sanchez MP, 1987-08, #### [facility] ([id number]) [address] [place] [address] 00791 #### 35717-2 #### [facility] ([id number]) [address] [facility], [address] [place] [address] Potassium [Moles/Vol] 4.5 mmol/L Normal 3.5-5.0 [facility] Comment on above: Performed By: #### JAMES Sanchez MP, 1987-08, #### [facility] ([id number]) [address] [place] [address] 35603 #### 41897-3 #### [facility] ([id number]) [address] [facility], [address] [place] [address] Sodium [Moles/Vol] 129 mmol/L Low 134-146 [facility] Comment on above: Performed By: #### B MP, CBCA, 1987-, 25837-5 #### [facility] ([id number]) [address] [facility], [place] [address] #### 31729-6 #### [facility] ([id number]) [address], [address] [place] [address] BLOOD UREA NITROGENon 2023 Urea nitrogen [Mass/Vol] 41 mg/dL High 5-27 [facility] Comment on above: Performed By: #### C BCA, 3094-0, FREEZER WORKER, ELEC #### [facility] ([id number]) [address], [address] [place] [address] CBC AND AUTO DIFFon 11-19-19 24 ABSOLUTE BASOPHIL 0.2 X10E9/L Normal 0.0-0.2 [facility] Comment on above: Performed By: #### C BCA, 3094-0, FREEZER WORKER, ELEC #### [facility] ([id number]) [address], [address] [place] [address] Basophils/100 WBC (Bld) 1.9 % Normal [facility] Comment on above: Performed By: #### C BCA, 3094-0, FREEZER WORKER, ELEC #### [facility] ([id number]) [address], [address] [place] [address] KATHERINE 1+ Abnormal NONE [facility] Comment on above: Performed By: #### C BCA, 3094-0, FREEZER WORKER, ELEC #### [facility] ([id number]) [address], [address] [place] [address] Eosinophils (Bld) [#/Vol] 0.4 10*3/uL Normal 0.0-0.4 [facility] Comment on above: Performed By: #### C BCA, 3094-0, FREEZER WORKER, ELEC #### [facility] ([id number]) [address], [facility] [address] [place] [address] Eosinophils/100 WBC (Bld) 3.8 % Normal [facility] Comment on above: Performed By: #### C BCA, 3094-0, FREEZER WORKER, ELEC #### [facility] ([id number]) [address], [facility] [address] [place] [address] Erythrocyte distribution width (RBC) [Ratio] 14.4 % Normal 11.5-15.0 [facility] Comment on above: Performed By: #### C BCA, 3094-0, FREEZER WORKER, ELEC #### [facility] ([id number]) [address], [facility] [address] [place] [address] Hematocrit (Bld) [Volume fraction] 40.3 % Normal 39-49 [facility] Comment on above: Performed By: #### C BCA, 3094-0, FREEZER WORKER, ELEC #### [facility] ([id number]) [address], [facility] [address] [place] [address] Hemoglobin (Bld) [Mass/Vol] 13.4 g/dL Normal 13.0-17.0 [facility] Comment on above: Performed By: #### C BCA, 3094-0, FREEZER WORKER, ELEC #### [facility] ([id number]) [address], [facility] [address] [place] [address] Lymphocytes (Bld) [#/Vol] 2.0 10*3/uL Normal 1.0-3.5 [facility] Comment on above: Performed By: #### C BCA, 3094-0, FREEZER WORKER, ELEC #### [facility] ([id number]) [address], [facility] [address] [place] [address] Lymphocytes/100 WBC (Bld) 21.7 % Normal [facility] Comment on above: Performed By: #### C BCA, 3094-0, FREEZER WORKER, ELEC #### [facility] ([id number]) [address], [address] [place] [address] MCH (RBC) [Entitic mass] 29.6 pg Normal 27-34 [facility] Comment on above: Performed By: #### C BCA, 3094-0, FREEZER WORKER, ELEC #### [facility] ([id number]) [address], [facility] [address] [place] [address] MCHC (RBC) [Mass/Vol] 33.4 g/dL Normal 32-36 [facility] Comment on above: Performed By: #### C BCA, 3094-0, FREEZER WORKER, ELEC #### [facility] ([id number]) [address] [address] [place] [address] MCV (RBC) [Entitic vol] 89 fL Normal 80-100 [facility] Comment on above: Performed By: #### C BCA, 3094-0, FREEZER WORKER, ELEC #### [facility] ([id number]) [address], [facility] [address] [place] [address] Monocytes (Bld) [#/Vol] 0.6 10*3/uL Normal 0-0.9 [facility] Comment on above: Performed By: #### C BCA, 3094-0, FREEZER WORKER, ELEC #### [facility] ([id number]) [address], [facility] [address] [place] [address] Monocytes/100 WBC (Bld) 6.6 % Normal [facility] Comment on above: Performed By: #### C BCA, 3094-0, FREEZER WORKER, ELEC #### [facility] ([id number]) [address] [address] [place] [address] Neutrophils (Bld) [#/Vol] 6.1 10*3/uL Normal 1.5-6.6 [facility] Comment on above: Performed By: #### C BCA, 3094-0, FREEZER WORKER, ELEC #### [facility] ([id number]) [address] [address] [place] [address] Platelet mean volume (Bld) [Entitic vol] 8.0 fL Normal 7-12 [facility] Comment on above: Performed By: #### C BCA, 3094-0, FREEZER WORKER, ELEC #### [facility] ([id number]) [address] [address] Platelets (Bld) [#/Vol] 253 10*3/uL Normal 150-450 [facility] Comment on above: Performed By: #### C BCA, 3094-0, FREEZER WORKER, ELEC #### [facility] ([id number]) [address] [address] [place] [address] RBC COUNT 4.54 X10E12/L Normal 4.10-5.70 [facility] Comment on above: Performed By: #### C BCA, 3094-0, FREEZER WORKER, ELEC #### [facility] ([id number]) [address] [address] SEG NEUTROPHIL 66.0 % Normal [facility] Comment on above: Performed By: #### C BCA, 3094-0, FREEZER WORKER, ELEC #### [facility] ([id number]) [address] [address] WBC (Bld) [#/Vol] 9.3 10*3/uL Normal 4.0-11.0 [facility] Comment on above: Performed By: #### C BCA, 3094-0, FREEZER WORKER, ELEC #### [facility] ([id number]) [address] [address] CREATININEon 11-19-2023 Creatinine [Mass/Vol] 3.18 mg/dL High 0.60-1.30 [facility] Comment on above: Result Comment: METH OD TRACEABLE TO IDMS STANDARD Performed By: #### C BCA, 3094-0, FREEZER WORKER, ELEC #### [facility] ([id number]) [address], [address] [place] [address] GFR/1.73 sq M.predicted among non-blacks MDRD (S/P/Bld) [Vol rate/Area] 21 mL/min/{1.73_m2} Low >59 [facility] Comment on above: Result Comment: Reported eGFR is based on the CKD-EPI 2020 equation that does not use a race coefficient. Performed By: #### C BCA, 3094-0, FREEZER WORKER, ELEC #### [facility] ([id number]) [address], [address] [place] [address] ELECTROLYTESon 11-19-2023 Anion gap [Moles/Vol] 9 mmol/L Normal 5-15 [facility] Comment on above: Performed By: #### C BCA, 3094-0, FREEZER WORKER, ELEC #### [facility] ([id number]) [address], [address] [place] [address] Chloride [Moles/Vol] 100 mmol/L Normal 98-109 [facility] Comment on above: Performed By: #### C BCA, 3094-0, FREEZER WORKER, ELEC #### [facility] ([id number]) [address], [address] [place] [address] CO2 [Moles/Vol] 22 mmol/L Normal 22-32 [facility] Comment on above: Performed By: #### C BCA, 3094-0, FREEZER WORKER, ELEC #### [facility] ([id number]) [address], [address] [place] [address] Potassium [Moles/Vol] 3.9 mmol/L Normal 3.5-5.0 [facility] Comment on above: Performed By: #### C BCA, 3094-0, FREEZER WORKER, ELEC #### [facility] ([id number]) [address], [address] [place] [address] Sodium [Moles/Vol] 131 mmol/L Low 134-146 [facility] Comment on above: Performed By: #### C BCA, 3094-0, FREEZER WORKER, ELEC #### [facility] ([id number]) [address], [address] [place] [address] BLOOD UREA NITROGENon 2023 Urea nitrogen [Mass/Vol] 35 mg/dL High 5-27 [facility] Comment on above: Performed By: #### B MP, CBCA, 1987-08, 47666-2 #### [facility] ([id number]) [address] [place] [address] #### 30620-7 #### [facility] ([id number]) [address], [address] [place] [address] CALCIUMon 10-23-2023 Calcium [Mass/Vol] 8.1 mg/dL Low 8.5-10.5 [facility] Comment on above: Performed By: #### B MP, CBCA, 1987-08, 70998-5 #### [facility] ([id number]) [address] [place] [address] #### 73438-4 #### [facility] ([id number]) [address], [address] [place] [address] CBC AND AUTO DIFFon 10-23-19 24 ABSOLUTE BASOPHIL 0.0 X10E9/L Normal 0.0-0.2 [facility] Comment on above: Performed By: #### B MP, CBCA, 1987-08, 39658-6 #### [facility] ([id number]) [address] [place] [address] #### 66898-3 #### [facility] ([id number]) [address], [address] [place] [address] ABSOLUTE NEUTROPHIL 5.4 X10E9/L Normal 1.5-6.6 [facility] Comment on above: Performed By: #### B MP, CBCA, 1987-08, 64490-7 #### [facility] ([id number]) [address] [place] [address] #### 05033-6 #### [facility] ([id number]) [address], [address] [place] [address] Basophils/100 WBC (Bld) 0.5 % Normal [facility] Comment on above: Performed By: #### B MP, CBCA, 1987-08, #### [facility] ([id number]) [address] [place] [address] #### 04351-1 #### [facility] ([id number]) [address], [address] [place] [address] Eosinophils (Bld) [#/Vol] 0.3 10*3/uL Normal 0.0-0.4 [facility] Comment on above: Performed By: #### B ALCON, CBCA, 1987-08, 90480-1 #### [facility] ([id number]) [address] [place] [address] 66057 #### 24937-8 #### [facility] ([id number]) [address], [address] [place] [address] Eosinophils/100 WBC (Bld) 3.2 % Normal [facility] Comment on above: Performed By: #### B MP, CBCA, 1987-08, 12776-7 #### [facility] ([id number]) [address] [place] [address] 44358 #### 20696-4 #### [facility] ([id number]) [address], [address] [place] [address] Erythrocyte distribution width (RBC) [Ratio] 14.4 % Normal 11.5-15.0 [facility] Comment on above: Performed By: #### Laura RONDON CBCA, 1987-08, 87050-3 #### [facility] ([id number]) [address] [place] [address] 18032 #### 27453-9 #### [facility] ([id number]) [address], [address] [place] [address] Hematocrit (Bld) [Volume fraction] 39.7 % Normal 39-49 [facility] Comment on above: Performed By: #### Laura RONDON CBCA, 1987-08, 73301-7 #### [facility] ([id number]) [address] [place] [address]448 #### 77052-5 #### [facility] ([id number]) [address] [facility], [address] [place] [address] Hemoglobin (Bld) [Mass/Vol] 13.1 g/dL Normal 13.0-17.0 [facility] Comment on above: Performed By: #### Laura RONDON CBCA, 1987-08, 09291-6 #### [facility] ([id number]) [address] [place] [address] #### 42514-5 #### [facility] ([id number]) [address], [address] [place] [address] Lymphocytes (Bld) [#/Vol] 2.1 10*3/uL Normal 1.0-3.5 [facility] Comment on above: Performed By: #### Laura RONDON CBCA, 1987-08, 94625-0 #### [facility] ([id number]) [address] [place] [address] 10797 #### 94419-3 #### [facility] ([id number]) [address], [address] [place] [address] Lymphocytes/100 WBC (Bld) 24.5 % Normal [facility] Comment on above: Performed By: #### Laura RONDON CBCA, 1987-08, 84727-8 #### [facility] ([id number]) [address] [place] [address] 18737 #### 87992-0 #### [facility] ([id number]) [address], [address] [place] [address] MCH (RBC) [Entitic mass] 29.0 pg Normal 27-34 [facility] Comment on above: Performed By: #### Laura RONDON CBCA, 1987-08, 05795-7 #### [facility] ([id number]) [address] [place] [address] 93043 #### 75063-7 #### [facility] ([id number]) [address], [address] [place] [address] MCHC (RBC) [Mass/Vol] 32.9 g/dL Normal 32-36 [facility] Comment on above: Performed By: #### Laura RONDON CBCA, 1987-08, #### [facility] ([id number]) [address] [place] [address] 01495 #### 78001-7 #### [facility] ([id number]) [address], [address] [place] [address] MCV (RBC) [Entitic vol] 88 fL Normal 80-100 [facility] Comment on above: Performed By: #### Laura RONDON CBCA, 1987-08, #### [facility] ([id number]) [address] [place] [address] 78241 #### 33674-9 #### [facility] ([id number]) [address], [address] [place] [address] Monocytes (Bld) [#/Vol] 0.8 10*3/uL Normal 0-0.9 [facility] Comment on above: Performed By: #### Laura RONDON, CBCA, 1987-08, #### [facility] ([id number]) [address] [place] [address] 61238 #### 49616-4 #### [facility] ([id number]) [address] [facility], [address] [place] [address] Monocytes/100 WBC (Bld) 9.2 % Normal [facility] Comment on above: Performed By: #### Laura RONDON CBCA, 1987-08, #### [facility] ([id number]) [address] [place] [address] 37777 #### 24424-3 #### [facility] ([id number]) [address] [facility], [address] [place] [address] Neutrophils/100 WBC (Bld) 62.6 % Normal [facility] Comment on above: Performed By: #### Laura RONDON CBCA, 1987-08, #### [facility] ([id number]) [address] [place] [address] 47220 #### 91591-3 #### [facility] ([id number]) [address] [facility], [address] [place] [address] Platelet mean volume (Bld) [Entitic vol] 8.6 fL Normal 7-12 [facility] Comment on above: Performed By: #### Laura RONDON CBCA, 1987-08, #### [facility] ([id number]) [address] [place] [address] 75567 #### 70767-7 #### [facility] ([id number]) [address] [facility], [address] [place] [address] Platelets (Bld) [#/Vol] 247 10*3/uL Normal 150-450 [facility] Comment on above: Performed By: #### B ALCON CBCA, 1987-08, #### [facility] ([id number]) [address] [place] [address] 45016 #### 12999-4 #### [facility] ([id number]) [address] [place] [address], [facility] [address] [place] [address] RBC COUNT 4.51 X10E12/L Normal 4.10-5.70 [facility] Comment on above: Performed By: #### B ALCON CBCA, 1987-08, #### [facility] ([id number]) [address] [place] [address] 17428 #### 72267-4 #### [facility] ([id number]) [address] [place] [address], [address] [address] WBC (Bld) [#/Vol] 8.5 10*3/uL Normal 4.0-11.0 [facility] Comment on above: Performed By: #### B ALCON CBCA, 1987-08, #### [facility] ([id number]) [address] [place] [address] 90758 #### 54649-3 #### [facility] ([id number]) [address] [place] [address], [facility] [address] [place] [address] CREATININEon 10-23-2023 Creatinine [Mass/Vol] 2.69 mg/dL High 0.70-1.20 [facility] Comment on above: Result Comment: METH OD TRACEABLE TO IDMS STANDARD Performed By: #### B ALCON CBCA, 1987-08, #### [facility] ([id number]) [address] [place] [address] 07681 #### 67484-5 #### [facility] ([id number]) [address], [address] [place] [address] GFR/1.73 sq M.predicted among non-blacks MDRD (S/P/Bld) [Vol rate/Area] 26 mL/min/{1.73_m2} Low >59 [facility] Comment on above: Result Comment: Reported eGFR is based on the CKD-EPI 2020 equation that does not use a race coefficient. Performed By: #### B JAMES RONDON, 1987-08, 80929-9 #### [facility] ([id number]) [address] [place] [address] 09546 #### 72026-6 #### [facility] ([id number]) [address], [address] [place] [address] Calcium.ionized (Bld) [Moles /Vol]on 10-23-2023 PORTABLE ICA 4.8 mg/dL Normal 4.5-5.3 [facility] Comment on above: Performed By: #### B JAMES RONDON, 1987-08, 46474-2 #### [facility] ([id number]) [address] [place] [address] 73659 #### 10557-5 #### [facility] ([id number]) [address], [address] [place] [address] ELECTROLYTESon 10-23-2023 Anion gap [Moles/Vol] 5 mmol/L Normal 5-15 [facility] Comment on above: Performed By: #### JAMES Sanchez MP, 1987-08, 15820-1 #### [facility] ([id number]) [address] [place] [address] 05850 #### 73169-1 #### [facility] ([id number]) [address], [address] [place] [address] Chloride [Moles/Vol] 108 mmol/L Normal 98-109 [facility] Comment on above: Performed By: #### JAMES Sanchez MP, 1987-08, 74479-7 #### [facility] ([id number]) [address] [place] [address] 69281 #### 10868-1 #### [facility] ([id number]) [address], [address] [place] [address] CO2 [Moles/Vol] 18 mmol/L Low 22-32 [facility] Comment on above: Performed By: #### JAMES Sanchez MP, 1987-08, 13434-1 #### [facility] ([id number]) [address] [place] [address] 54997 #### 56122-4 #### [facility] ([id number]) [address], [address] [place] [address] Potassium [Moles/Vol] 4.1 mmol/L Normal 3.5-5.0 [facility] Comment on above: Performed By: #### JAMES Sanchez MP, 1987-08, 91416-7 #### [facility] ([id number]) [address] [place] [address] 58233 #### 00746-1 #### [facility] ([id number]) [address], [address] [place] [address] Sodium [Moles/Vol] 131 mmol/L Low 134-146 [facility] Comment on above: Performed By: #### JAMES Sanchez MP, 1987-08, 08810-3 #### [facility] ([id number]) [address] [place] [address] 48966 #### 27231-9 #### [facility] ([id number]) [address], [address] [place] [address] ESR Photometric method (Bld) [Velocity]on 10-23-2023 ESR, ERYTHROCYTE SEDIMENTATION RATE 89 mm/h High 0-20 [facility] Comment on above: Performed By: #### B JAMES RONDON, 1987-08, 87297-7 #### [facility] ([id number]) [address] [place] [address] 32389 #### 00451-9 #### [facility] ([id number]) [address] [facility], [address] [place] [address] HGB A1C (GLYCO-HGB)on 2023 Glucose [Mass/Vol] 235 mg/dL Normal [facility] Comment on above: Performed By: #### B JAMES RONDON, 46696-0 #### [facility] ([id number]) [address] [place] [address] 17583 #### 00518-9 #### [facility] ([id number]) [address] [facility], [address] [place] [address] HbA1c (Bld) [Mass fraction] 9.8 % High 4.4-5.6 [facility] Comment on above: Result Comment: NOTE ADA Guidelines Result HgbA1c Normal : less than 5.7 % Prediabetes : 5.7 % to 6.4 % Diabetes : > 6.4 % Use with caution in patients with abnormal hemoglobin variants as the half-life of red blood cells and in vivo glycation rates are affected. Performed By: #### B JAMES RONDON, 1987-08, 35624-8 #### [facility] ([id number]) [address] [place] [address] 44433 #### 01791-2 #### [facility] ([id number]) [address] [facility], [address] [place] [address] LIVER PANELon 10-23-2023 Albumin [Mass/Vol] 2.8 g/dL Low 3.2-5.3 [facility] Comment on above: Performed By: #### JAMES Sanchez MP, 1987-08, 66976-0 #### [facility] ([id number]) [address] [place] [address] 18902 #### 44352-2 #### [facility] ([id number]) [address], [address] [place] [address] ALP [Catalytic activity/Vol] 86 U/L Normal 39-130 [facility] Comment on above: Performed By: #### JAMES Sanchez MP, 1987-08, 20293-0 #### [facility] ([id number]) [address] [place] [address] 62591 #### 59543-8 #### [facility] ([id number]) [address], [address] [place] [address] ALT [Catalytic activity/Vol] 19 U/L Normal 0-40 [facility] Comment on above: Performed By: #### JAMES Sanchez MP, 1987-08, 51715-2 #### [facility] ([id number]) [address] [place] [address] 42056 #### 07747-5 #### [facility] ([id number]) [address], [address] [place] [address] AST [Catalytic activity/Vol] 15 U/L Normal 0-41 [facility] Comment on above: Performed By: #### JAMES Sanchez MP, 1987-08, 03233-4 #### [facility] ([id number]) [address] [place] [address] 85337 #### 93000-3 #### [facility] ([id number]) [address], [address] [place] [address] Bilirubin [Mass/Vol] 0.5 mg/dL Normal 0.3-1.2 [facility] Comment on above: Performed By: #### JAMES Sanchez MP, 1987-08, 81025-3 #### [facility] ([id number]) [address] [place] [address] 65881 #### 46811-5 #### [facility] ([id number]) [address] [facility], [address] [place] [address] Bilirubin.indirect [Mass/Vol] mg/dL Normal 0.0-0.4 [facility] Comment on above: Performed By: #### JAMES Sanchez MP, 1987-08, 05141-5 #### [facility] ([id number]) [address] [place] [address] 77894 #### 17030-2 #### [facility] ([id number]) [address] [facility], [address] [place] [address] Protein [Mass/Vol] 6.4 g/dL Normal 6.0-8.0 [facility] Comment on above: Performed By: #### JAMES Sanchez MP, 1987-08, 88756-4 #### [facility] ([id number]) [address] [place] [address] 74995 #### 87934-4 #### [facility] ([id number]) [address] [facility], [address] [place] [address] Lipid 1996 panelon 4 Cholesterol [Mass/Vol] 135 mg/dL Low 150-200 [facility] Comment on above: Performed By: #### JAMES Sanchez MP, 1987-08, 51721-7 #### [facility] ([id number]) [address] [place] [address] 82085 #### 73477-7 #### [facility] ([id number]) [address] [facility], [address] [place] [address] Cholesterol in HDL [Mass/Vol] 40 mg/dL Normal >39 [facility] Comment on above: Result Comment: HDL <40 mg/dL - High Risk HDL > or = 40mg/dL- Desirable HDL >60 mg/dL - Negative Risk Performed By: #### JAMES Sanchez MP, #### [facility] ([id number]) [address] [place] [address] 27767 #### 74137-7 #### [facility] ([id number]) [address], [address] [place] [address] Cholesterol in LDL [Mass/Vol] 57 mg/dL Normal <130 [facility] Comment on above: Result Comment: LDL <100 mg/dL - Desirable LDL >160 mg/dL - High Risk Performed By: ###JAMES Royal MP, #### [facility] ([id number]) [address] [place] [address] 24838 #### 90029-0 #### [facility] ([id number]) [address], [address] [place] [address] Cholesterol in VLDL [Mass/Vol] 38 mg/dL High 0-30 [facility] Comment on above: Performed By: #JAMES Quintero MP, #### [facility] ([id number]) [address] [place] [address] 16001 #### 06674-2 #### [facility] ([id number]) [address] [facility], [address] [place] [address] CHOLESTEROL:HDL 3.4 Normal 1.0-5.0 [facility] Comment on above: Performed By: #### B JAMES RONDON, 1987-08, 24055-6 #### [facility] ([id number]) [address] [place] [address] 83657 #### 76706-7 #### [facility] ([id number]) [address] [place] [address], [address] [place] [address] Triglyceride [Mass/Vol] 192 mg/dL High 27-150 [facility] Comment on above: Performed By: #### JAMES Sanchez MP, 1987-08, 70056-8 #### [facility] ([id number]) [address] [place] [address] 53003 #### 11839-6 #### [facility] ([id number]) [address] [place] [address], [address] [place] [address] MAGNESIUMon 10-23-2023 Magnesium [Mass/Vol] 2.1 mg/dL Normal 1.8-2.6 [facility] Comment on above: Performed By: #### JAMES Sanchez MP, 1987-08, 15882-8 #### [facility] ([id number]) [address] [place] [address] 12759 #### 40916-5 #### [facility] ([id number]) [address] [place] [address], [address] [place] [address] Natriuretic peptide.B prohor adrianne N-Terminal IA [Mass/Vol]on 10-23-2023 Natriuretic peptide B (Bld) [Mass/Vol] 1528 pg/mL High <=88 [facility] Comment on above: Result Comment: NOTE NT-proBNP [...] absence of renal failure. Test Performed by: [address] [address] [place] Drawer: Brittani Nieves Ph.D.; CLIA# [id number] Performed By: #### B ALCON CBCA, 1987-08, 45474-4 #### [facility] ([id number]) [address] [place] [address] 30123 #### 11421-4 #### [facility] ([id number]) [address] [facility], [address] [place] [address] Prostate specific Ag [Mass/V ol]on 10-23-2023 PSA SCREEN 1.65 ng/mL Normal 0.00-4.00 [facility] Comment on above: Result Comment: The method used for this test is Rufus Cushing DXI chemiluminescent immunoassay. Values obtained by different assay methods cannot be used interchangeably. Performed By: #### B ALCON CBCA, 1987-08, 33941-8 #### [facility] ([id number]) [address] [place] [address] 17856 #### 90200-8 #### [facility] ([id number]) [address], [address] [place] [address] Vitamin D+Metabolites [Mass/ Vol]on 10-23-2023 VITAMIN D 25 HYD TOT 8.3 ng/mL Low 30-100 [facility] Comment on above: Result Comment: Vitamin D status 25 [place] Vitamin D Deficiency <20 ng/mL Insufficiency 20-29 ng/mL Sufficiency 30-100 ng/mL Toxicity >100 ng/mL NOTE: A pediatric reference range has not been established by the apprentice cook of this kit. The [place] [employer] recommends a Vitamin D level of = or >20ng/mL in infants and children. Performed By: #### B JAMES RONDON, 1987-08, 45581-2 #### [facility] ([id number]) [address] [place] [address] 55808 #### 73016-8 #### [facility] ([id number]) [address], [address] [place] [address] BLOOD UREA NITROGENon 2023 Urea nitrogen [Mass/Vol] 33 mg/dL High 5-27 [facility] Comment on above: Performed By: #### B JAMES RONDON, 1987-08, 55072-5 #### [facility] ([id number]) [address] [place] [address] 16020 #### 22559-3 #### [facility] ([id number]) [address] [facility], [address] [place] [address] CREATININEon 09-03-2023 Creatinine [Mass/Vol] 2.42 mg/dL High 0.70-1.20 [facility] Comment on above: Result Comment: METH OD TRACEABLE TO IDMS STANDARD Performed By: #### B JAMES RONDON, 1987-08, 17270-3 #### [facility] ([id number]) [address] [place] [address] 19527 #### 25420-2 #### [facility] ([id number]) [address], [address] [place] [address] GFR/1.73 sq M.predicted among non-blacks MDRD (S/P/Bld) [Vol rate/Area] 29 mL/min/{1.73_m2} Low >59 [facility] Comment on above: Result Comment: Reported eGFR is based on the CKD-EPI 2020 equation that does not use a race coefficient. Performed By: #### B JAMES RONDON, 1987-08, 97040-9 #### [facility] ([id number]) [address] [place] [address] 44592 #### 07781-2 #### [facility] ([id number]) [address], [address] [place] [address] ELECTROLYTESon 09-03-2023 Anion gap [Moles/Vol] 7 mmol/L Normal 5-15 [facility] Comment on above: Performed By: #### JAMES Sanchez MP, 1987-08, 41751-9 #### [facility] ([id number]) [address] [place] [address] 94106 #### 55683-3 #### [facility] ([id number]) [address] [facility], [address] [place] [address] Chloride [Moles/Vol] 106 mmol/L Normal 98-109 [facility] Comment on above: Performed By: #### JAMES Sanchez MP, 1987-08, #### [facility] ([id number]) [address] [place] [address] 48297 #### 47706-9 #### [facility] ([id number]) [address], [address] [place] [address] CO2 [Moles/Vol] 21 mmol/L Low 22-32 [facility] Comment on above: Performed By: #### JAMES Sanchez MP, 1987-08, #### [facility] ([id number]) [address] [place] [address] 10814 #### 14864-9 #### [facility] ([id number]) [address], [address] [place] [address] Potassium [Moles/Vol] 4.2 mmol/L Normal 3.5-5.0 [facility] Comment on above: Performed By: #### Laura RONDON CBCA, 1987-08, #### [facility] ([id number]) [address] [place] [address] 29579 #### 74625-8 #### [facility] ([id number]) [address] [place] [address], [address] [place] [address] Sodium [Moles/Vol] 134 mmol/L Normal 134-146 [facility] Comment on above: Performed By: #### Laura RONDON CBCA, 1987-08, 17523-8 #### [facility] ([id number]) [address] [place] [address] 34575 #### 44243-0 #### [facility] ([id number]) [address] [place] [address], [address] [place] [address] Natriuretic peptide.B prohor adrianne N-Terminal [Mass/Vol]on 09-03-2023 NT Pro BNP See Below Normal [facility] Comment on above: Result Comment: NOTE TEST RESULT FLAG UNIT REF.RANGE ---- PRO B Natr Peptide 933 H pg/mL <125 Test Performed By: [facility] [address] [place] [address] Pattern Stamper: Charlotte Hart III #[id number] Performed By: #### Laura RONDON CBCA, 1987-08, 37980-9 #### [facility] ([id number]) [address] [place] [address] 48068 #### 65798-4 #### [facility] ([id number]) [address] [place] [address], [address] [place] [address] BLOOD UREA NITROGENon 2023 Urea nitrogen [Mass/Vol] 38 mg/dL High 5-27 [facility] Comment on above: Performed By: #### B JAMES RONDON, 1987-08, 84011-7 #### [facility] ([id number]) [address] [place] [address] 07846 #### 70266-4 #### [facility] ([id number]) [address] [facility], [address] [place] [address] CREATININEon 07-31-2023 Creatinine [Mass/Vol] 2.76 mg/dL High 0.70-1.20 [facility] Comment on above: Result Comment: METH OD TRACEABLE TO IDMS STANDARD Performed By: #### B JAMES RONDON, 1987-08, #### [facility] ([id number]) [address] [place] [address] 71855 #### 66788-6 #### [facility] ([id number]) [address] [facility], [address] [place] [address] GFR/1.73 sq M.predicted among non-blacks MDRD (S/P/Bld) [Vol rate/Area] 25 mL/min/{1.73_m2} Low >59 [facility] Comment on above: Result Comment: Reported eGFR is based on the CKD-EPI 2020 equation that does not use a race coefficient. Performed By: #### B JAMES RONDNO, 1987-08, #### [facility] ([id number]) [address] [place] [address] 50451 #### 04775-4 #### [facility] ([id number]) [address] [facility], [address] [place] [address] ELECTROLYTESon 07-31-2023 Anion gap [Moles/Vol] 7 mmol/L Normal 5-15 [facility] Comment on above: Performed By: #### B JAMES RONDON, 1987-08, #### [facility] ([id number]) [address] [place] [address] 22349 #### 48093-7 #### [facility] ([id number]) [address] [facility], [address] [place] [address] Chloride [Moles/Vol] 104 mmol/L Normal 98-109 [facility] Comment on above: Performed By: #### JAMES Sanchez MP, 1987-08, 20277-5 #### [facility] ([id number]) [address] [place] [address] 53210 #### 24309-1 #### [facility] ([id number]) [address] [facility], [address] [place] [address] CO2 [Moles/Vol] 21 mmol/L Low 22-32 [facility] Comment on above: Performed By: #### JAMES Sanchez MP, 1987-08, 96990-9 #### [facility] ([id number]) [address] [place] [address] 57736 #### 80953-3 #### [facility] ([id number]) [address] [facility], [address] [place] [address] Potassium [Moles/Vol] 4.3 mmol/L Normal 3.5-5.0 [facility] Comment on above: Performed By: #### JAMES Sanchez MP, 1987-08, 15256-1 #### [facility] ([id number]) [address] [place] [address] 80094 #### 16337-9 #### [facility] ([id number]) [address] [facility] [facility], [address] [place] [address] Sodium [Moles/Vol] 132 mmol/L Low 134-146 [facility] Comment on above: Performed By: #### JAMES Sanchez MP, 1987-08, 09128-5 #### [facility] ([id number]) [address] [place] [address]497 #### 88413-7 #### [facility] ([id number]) [address] [facility], [address] [place] [address] Natriuretic peptide.B prohor adrianne N-Terminal [Mass/Vol]on 07-31-2023 NT Pro BNP See Below Normal [facility] Comment on above: Result Comment: NOTE TEST RESULT FLAG UNIT REF.RANGE ---- PRO B Natr Peptide 1296 H pg/mL <125 Test Performed By: [place] [address] Pattern Stamper: Charlotte Hart III #[id number] Performed By: #### Laura RONDON, CBCA, 1987-08, 05976-3 #### [facility] ([id number]) [address] [place] [address] #### 25265-5 #### [facility] ([id number]) [address] [facility], [address] [place] [address] BLOOD UREA NITROGENon 2023 Urea nitrogen [Mass/Vol] 34 mg/dL High 5-27 [facility] Comment on above: Performed By: #### Laura RONDON, CBCA, 1987-08, 70092-2 #### [facility] ([id number]) [address] [place] [address] #### 40616-4 #### [facility] ([id number]) [address] [facility], [address] [place] [address] CREATININEon 07-02-2023 Creatinine [Mass/Vol] 3.13 mg/dL High 0.70-1.20 [facility] Comment on above: Result Comment: METH OD TRACEABLE TO IDMS STANDARD Performed By: #### B JAMES RONDON, 1987-08, 91102-3 #### [facility] ([id number]) [address] [place] [address] #### 28227-5 #### [facility] ([id number]) [address] [facility] [address], [address] [place] [address] GFR/1.73 sq M.predicted among non-blacks MDRD (S/P/Bld) [Vol rate/Area] 22 mL/min/{1.73_m2} Low >59 [facility] Comment on above: Result Comment: Reported eGFR is based on the CKD-EPI 2020 equation that does not use a race coefficient. Performed By: #### B JAMES RONDON, 1987-08, 73343-9 #### [facility] ([id number]) [address] [place] [address] #### 25086-6 #### [facility] ([id number]) [address] [facility], [address] [place] [address] ELECTROLYTESon 07-02-2023 Anion gap [Moles/Vol] 8 mmol/L Normal 5-15 [facility] Comment on above: Performed By: #### JAMES Sanchez MP, 1987-08, 72238-2 #### [facility] ([id number]) [address] [place] [address] #### 67986-2 #### [facility] ([id number]) [address] [facility] [facility] [facility], [address] [place] [address] Chloride [Moles/Vol] 106 mmol/L Normal 98-109 [facility] Comment on above: Performed By: #### B JAMES RONDON, 1987-08, 36068-4 #### [facility] ([id number]) [address] [place] [address] 24399 #### 08198-0 #### [facility] ([id number]) [address] [facility], [address] [place] [address] CO2 [Moles/Vol] 20 mmol/L Low 22-32 [facility] Comment on above: Performed By: #### SEVEN Sanchez MPA, 1987-08, 15644-0 #### [facility] ([id number]) [address] [place] [address] 12457 #### 66451-9 #### [facility] ([id number]) [address] [place] [address], [address] [place] [address] Potassium [Moles/Vol] 4.7 mmol/L Normal 3.5-5.0 [facility] Comment on above: Performed By: #### SEVEN Sanchez MPA, 1987-08, 26802-3 #### [facility] ([id number]) [address] [place] [address] 87259 #### 70508-3 #### [facility] ([id number]) [address] [place] [address], [address] [address] Sodium [Moles/Vol] 134 mmol/L Normal 134-146 [facility] Comment on above: Performed By: #### SEVEN Sanchez MPA, 1987-08, 04605-2 #### [facility] ([id number]) [address] [place] [address] 66528 #### 78208-8 #### [facility] ([id number]) [address] [facility], [address] [place] [address] Natriuretic peptide.B prohor adrianne N-Terminal [Mass/Vol]on 07-02-2023 NT Pro BNP See Below Normal [facility] Comment on above: Result Comment: NOTE TEST RESULT FLAG UNIT REF.RANGE ---- PRO B Natr Peptide 413 H pg/mL <125 Test Performed By: [facility] [address] [place] [address] Pattern Stamper: Tyler Valle III, M.D. CLIA #[id number] Performed By: #### B JAMES RONDON, 1987-08, 20502-8 #### [facility] ([id number]) [address] [place] [address] 91598 #### 57131-1 #### [facility] ([id number]) [address] [place] [address], [facility] [address] [place] [address] BLOOD UREA NITROGENon 2023 Urea nitrogen [Mass/Vol] 33 mg/dL High 5-27 [facility] Comment on above: Performed By: #### JAMES Sanchez MP, 1987-08, 00456-4 #### [facility] ([id number]) [address] [place] [address] 48999 #### 56733-1 #### [facility] ([id number]) [address] [place] [address], [address] [place] [address] CREATININEon 06-04-2023 Creatinine [Mass/Vol] 2.37 mg/dL High 0.70-1.20 [facility] Comment on above: Result Comment: METH OD TRACEABLE TO IDMS STANDARD Performed By: #### JAMES Sanchez MP, 1987-08, 77875-7 #### [facility] ([id number]) [address] [place] [address] 35277 #### 51582-1 #### [facility] ([id number]) [facility], [address] [place] [address] GFR/1.73 sq M.predicted among non-blacks MDRD (S/P/Bld) [Vol rate/Area] 30 mL/min/{1.73_m2} Low >59 [facility] Comment on above: Result Comment: Reported eGFR is based on the CKD-EPI 2020 equation that does not use a race coefficient. Performed By: #### B JAMES RONDON, 1987-08, 82309-2 #### [facility] ([id number]) [address] [place] [address] 13331 #### 61758-7 #### [facility] ([id number]) [address], [address] [place] [address] ELECTROLYTESon 06-04-2023 Anion gap [Moles/Vol] 7 mmol/L Normal 5-15 [facility] Comment on above: Performed By: #### B JAMES RONDON, 1987-08, 33652-4 #### [facility] ([id number]) [address] [place] [address] 06621 #### 54210-5 #### [facility] ([id number]) [address], [address] [place] [address] Chloride [Moles/Vol] 106 mmol/L Normal 98-109 [facility] Comment on above: Performed By: #### B JAMES RONDON, 1987-08, 97978-2 #### [facility] ([id number]) [address] [place] [address] 20728 #### 25544-1 #### [facility] ([id number]) [address], [address] [place] [address] CO2 [Moles/Vol] 20 mmol/L Low 22-32 [facility] Comment on above: Performed By: #### JAMES Sanchez MP, 1987-08, 13124-4 #### [facility] ([id number]) [address] [place] [address] 73216 #### 78592-8 #### [facility] ([id number]) [address] [place] [address], [address] [place] [address] Potassium [Moles/Vol] 4.6 mmol/L Normal 3.5-5.0 [facility] Comment on above: Performed By: #### JAMES Sanchez MP, 1987-08, 93908-3 #### [facility] ([id number]) [address] [place] [address] 42686 #### 34370-3 #### [facility] ([id number]) [address] [place] [address], [address] [place] [address] Sodium [Moles/Vol] 133 mmol/L Low 134-146 [facility] Comment on above: Performed By: #### JAMES Sanchez MP, 1987-08, 11991-0 #### [facility] ([id number]) [address] [place] [address] 93326 #### 21502-3 #### [facility] ([id number]) [address] [place] [address], [address] [place] [address] Natriuretic peptide.B prohor adrianne N-Terminal [Mass/Vol]on 06-04-2023 NT Pro BNP See Below Normal [facility] Comment on above: Result Comment: NOTE TEST RESULT FLAG UNIT REF.RANGE ---- PRO B Natr Peptide 526 H pg/mL <125 Test Performed By: [facility] [address] [place] [address] Pattern Stamper: Charlotte Hart III #[id number] Performed By: #### JAMES Sanchez MP, 1987-08, 18006-5 #### [facility] ([id number]) [address] [place] [address] [place] [address] #### 03967-9 #### [facility] ([id number]) [address] [place] [address], [address] [place] [address] Cult,Urineon 06-03-2023 Cult,Urine Specimen Description .VOIDED URINE [...] Tobramycin 4 SUSCEPTIBLE Trimethoprim/Sulfa >=320 RESISTANT Resistant [facility] Comment on above: Performed By: #### U RC #### [address] [address] Round Kiln Drawer: Griffin Carrion MD [facility] [address] [place] [address] [place] [address] Round Kiln Drawer: Jameson Aaron MD UA w/Reflex Cultureon 2023 Bilirubin, SemiQt,Ur Negative Normal NEG [facility] Comment on above: Performed By: #### U COURTNEY GUSTAFSON #### [facility] [address] [place] [address] [place] [address] Round Kiln Drawer: Jameson Aaron MD Blood, Urine TRACE Abnormal NEG [facility] Comment on above: Performed By: #### U COURTNEY GUSTAFSON #### [facility] [address] [place] [address] [place] [address] Round Kiln Drawer: Jameson Aaron MD Clarity (U) SLIGHTLY CLOUDY Abnormal CLEAR [facility] Comment on above: Performed By: #### U COURTNEY GUSTAFSON #### [facility] [address] [place], [place] [address] Round Kiln Drawer: Jameson Aaron MD Color (U) Yellow Normal YEL [facility] Comment on above: Performed By: #### U AX, UMICAO #### [facility] [address] [place], [place] [address] Round Kiln Drawer: Jameson Aaron MD Glucose Ql (U) 3+ mg/dL Abnormal NEG [facility] Comment on above: Performed By: #### U AX, UMICAO #### [facility] [address] [place], [place] 2[address] Round Kiln Drawer: Jameson Aaron MD Ketones Ql (U) Negative Normal NEG [facility] Comment on above: Performed By: #### U AX, UMICAO #### [facility] [address] [place], [place] [address] Round Kiln Drawer: Jameson Aaron MD Leukocyte esterase Test strip Ql (U) TRACE Abnormal NEG [facility] Comment on above: Performed By: #### U AX, UMICAO #### [facility] [address] [place], [place] 58[address] Round Kiln Drawer: Jameson Aaron MD Nitrite,Ur Negative Normal [facility] Comment on above: Performed By: #### U AX, UMICAO #### [facility] [address] [place], [place] 3[address] Round Kiln Drawer: Jameson Aaron MD PH,Ur 5.5 Normal 5.0-9.0 [facility] Comment on above: Performed By: #### U AX, UMICAO #### [facility] [address] [place], [place] 77[address] Round Kiln Drawer: Jameson Aaron MD Protein Ql (U) 2+ mg/dL Abnormal NEG [facility] Comment on above: Performed By: #### U AX, UMICAO #### [facility] [address] [place], [place] [address] Round Kiln Drawer: Jameson Aaron MD Spec. Lorena,Ur 1.025 High 1.010-1.020 [facility] Comment on above: Performed By: #### U AX, UMICAO #### [facility] [address] [place], [place] [address] Round Kiln Drawer: Jameson Aaron MD Urobilinogen,Ur Normal Normal 0.0-1.0 [facility] Comment on above: Performed By: #### U AX UMICAO #### [facility] [address] [place] [address] Round Kiln Drawer: Jameson Aaron MD Urinalysis,Microon 4 Bacteria 2+ Abnormal NONE [facility] Comment on above: Performed By: #### U AX UMICAO #### [facility] [address] [place], [place] [address] Round Kiln Drawer: Jameson Aaron MD Epithelial cells LM Ql (Urine sed) 0 TO [address] Comment on above: Performed By: #### U AX, UMICAO #### [facility] [address] [place], [place] [address] Round Kiln Drawer: Jameson Aaron MD Epithelial, Renal 0 TO 2 Normal 0 [facility] Comment on above: Performed By: #### U AX, UMICAO #### [facility] [address] [place], [place] [address] Round Kiln Drawer: Jameson Aaron MD Urine RBC's 0 TO 2 Normal 0-2 [facility] Comment on above: Performed By: #### U AX, UMICAO #### [facility] [address] [place], [place] [address] Round Kiln Drawer: Jameson Aaron MD Urine WBC's 10 TO 20 Normal 0-5 [facility] Comment on above: Performed By: #### U AX, UMICAO #### [facility] [address] [place] [address] Round Kiln Drawer: Jameson Aaron MD Yeast PRESENCE NOTED Abnormal NONE [facility] Comment on above: Performed By: #### U AX, ELEANORICAO #### [facility] [address] [place] [address] Round Kiln Drawer: Jameson Aaron MD BLOOD UREA NITROGENon 2023 Urea nitrogen [Mass/Vol] 44 mg/dL High 5-27 [facility] Comment on above: Performed By: #### E LEC, 309-0, FREEZER WORKER, 20188-0 #### [facility] ([id number]) [address] [place] [address] 81273 #### 03618-9, HA1C #### [facility] ([id number]) [address] [place] [address], [address] [place] [address] CREATININEon 05-06-2023 Creatinine [Mass/Vol] 2.71 mg/dL High 0.70-1.20 [facility] Comment on above: Result Comment: METH OD TRACEABLE TO IDMS STANDARD Performed By: #### E LEC, 309-0, FREEZER WORKER, 46343-4 #### [facility] ([id number]) [address] [place] [address] 55274 #### 77456-3, HA1C #### [facility] ([id number]) [address] [place] [address], [address] [place] [address] GFR/1.73 sq M.predicted among non-blacks MDRD (S/P/Bld) [Vol rate/Area] 26 mL/min/{1.73_m2} Low >59 [facility] Comment on above: Result Comment: Reported eGFR is based on the CKD-EPI 2020 equation that does not use a race coefficient. Performed By: #### E LEC, 309-0, FREEZER WORKER, 89581-0 #### [facility] ([id number]) [address] [place] [address] 97746 #### 72066-4, HA1C #### [facility] ([id number]) [address], [address] [place] [address] ELECTROLYTESon 05-06-2023 Anion gap [Moles/Vol] 11 mmol/L Normal 5-15 [facility] Comment on above: Performed By: #### E LEC, 3094-0, FREEZER WORKER, 49690-1 #### [facility] ([id number]) [address] [place] [address] 69384 #### 57263-9, HA1C #### [facility] ([id number]) [address], [address] [place] [address] Chloride [Moles/Vol] 101 mmol/L Normal 98-109 [facility] Comment on above: Performed By: #### E LEC, 3094-0, FREEZER WORKER, 56454-6 #### [facility] ([id number]) [address] [place] [address] 81984 #### 36840-6, HA1C #### [facility] ([id number]) [address], [address] [place] [address] CO2 [Moles/Vol] 18 mmol/L Low 22-32 [facility] Comment on above: Performed By: #### E LEC, 3094-0, FREEZER WORKER, 87255-8 #### [facility] ([id number]) [address] [place] [address] 98065 #### 04104-8, HA1C #### [facility] ([id number]) [address], [address] [place] [address] Potassium [Moles/Vol] 4.4 mmol/L Normal 3.5-5.0 [facility] Comment on above: Performed By: #### E LEC, 3094-0, FREEZER WORKER, 78746-5 #### [facility] ([id number]) [address] [place] [address] 91939 #### 32818-3, HA1C #### [facility] ([id number]) [address], [address] [place] [address] Sodium [Moles/Vol] 130 mmol/L Low 134-146 [facility] Comment on above: Performed By: #### E LEC, 3094-0, FREEZER WORKER, 29627-1 #### [facility] ([id number]) [address] [place] [address] 71190 #### 97050-2, HA1C #### [facility] ([id number]) [address], [address] [place] [address] HGB A1C (GLYCO-HGB)on 2023 Glucose [Mass/Vol] 260 mg/dL Normal [facility] Comment on above: Performed By: #### Laura MP, CBCA, 1987-08, 06950-2 #### [facility] ([id number]) [address] [place] [address] 56630 #### 07569-6 #### [facility] ([id number]) [address], [address] [place] [address] HbA1c (Bld) [Mass fraction] 10.7 % High 4.4-5.6 [facility] Comment on above: Result Comment: NOTE ADA Guidelines Result HgbA1c Normal : less than 5.7 % Prediabetes : 5.7 % to 6.4 % Diabetes : > 6.4 % Use with caution in patients with abnormal hemoglobin variants as the half-life of red blood cells and in vivo glycation rates are affected. Performed By: #### B MP, CBCA, 1987-08, 63217-0 #### [facility] ([id number]) [address] [place] [address] 51511 #### 40336-5 #### [facility] ([id number]) [address], [address] [place] [address] Lipid 1996 panelon 4 Cholesterol [Mass/Vol] 205 mg/dL High 150-200 [facility] Comment on above: Performed By: #### Tiki LEC, 3094-0, FREEZER WORKER, 84993-1 #### [facility] ([id number]) [address] [place] [address] 53304 #### 73900-3, HA #### [facility] ([id number]) [address], [address] [place] [address] Cholesterol in HDL [Mass/Vol] 35 mg/dL Low >39 [facility] Comment on above: Result Comment: HDL <40 mg/dL - High Risk HDL > or = 40mg/dL- Desirable HDL >60 mg/dL - Negative Risk Performed By: #### Tiki LEC, 3094-0, FREEZER WORKER, 21494-9 #### [facility] ([id number]) [address] [place] [address] 43762 #### 53639-9, HA #### [facility] ([id number]) [address], [address] [place] [address] Cholesterol in LDL [Mass/Vol] 120 mg/dL Normal <130 [facility] Comment on above: Result Comment: LDL <100 mg/dL - Desirable LDL >160 mg/dL - High Risk Performed By: #### E LEC, 3094-0, FREEZER WORKER, 24872-8 #### [facility] ([id number]) [address] [place] [address] 57885 #### 03719-0, HA1C #### [facility] ([id number]) [address] [facility], [address] [place] [address] Cholesterol in VLDL [Mass/Vol] 50 mg/dL High 0-30 [facility] Comment on above: Performed By: #### E LEC, 3094-0, FREEZER WORKER, 09045-7 #### [facility] ([id number]) [address] [place] [address] 55037 #### 32951-4, HA1C #### [facility] ([id number]) [address] [facility], [address] [place] [address] CHOLESTEROL:HDL 5.9 High 1.0-5.0 [facility] Comment on above: Performed By: #### E LEC, 3094-0, FREEZER WORKER, 88634-3 #### [facility] ([id number]) [address] [place] [address] 51302 #### 62576-8, HA1C #### [facility] ([id number]) [address] [facility], [address] [place] [address] Triglyceride [Mass/Vol] 248 mg/dL High 27-150 [facility] Comment on above: Performed By: #### E LEC, 3094-0, FREEZER WORKER, 59462-2 #### [facility] ([id number]) [address] [place] [address] 13563 #### 43812-8, HA1C #### [facility] ([id number]) [address], [address] [place] [address] MICROALBUMIN - ALBUMIN:CREAT ININE URINE RATIOon 05-06-2023 ALB/CREAT RATIO 2747.0 mg/g creat High 0.0-30.0 Pr [facility] Comment on above: Performed By: #### B JAMES RONDON, 1987-08, 59761-1 #### [facility] ([id number]) [address] [place] [address] 31976 #### 33832-4 #### [facility] ([id number]) [address] [facility], [address] [place] [address] Albumin DL <= 20 mg/L (U) [Mass/Vol] 195.2 mg/dL High 0.0-1.9 [facility] Comment on above: Performed By: #### B JAMES RONDON, 1987-08, 84013-3 #### [facility] ([id number]) [address] [place] [address] 97989 #### 04583-0 #### [facility] ([id number]) [address] [facility], [address] [place] [address] URINE CREAT 71.06 mg/dL Normal [facility] Comment on above: Performed By: #### B JAMES RONDON, 1987-08, 69105-2 #### [facility] ([id number]) [address] [place] [address] 53126 #### 61288-1 #### [facility] ([id number]) [address] [facility], [address] [place] [address] Natriuretic peptide.B prohor adrianne N-Terminal [Mass/Vol]on 05-06-2023 NT Pro BNP See Below Normal [facility] Comment on above: Result Comment: NOTE TEST RESULT FLAG UNIT REF.RANGE ---- PRO B Natr Peptide 314 H pg/mL <125 Test Performed By: [facility] [address] [address] Pattern Stamper: Charlotte Hart III #[id number] Performed By: #### B MP, CBCA, 1987-, 22848-7 #### [facility] ([id number]) [address] [place] [address] 37220 #### 14261-3 #### [facility] ([id number]) [address] [place] [address], [address] [place] [address] URINALYSISon 05-06-2023 Bilirubin Ql (U) Negative Normal NEG [facility] Comment on above: Performed By: #### U A #### [facility] ([id number]) [address] [place] [address] BLOOD/HGB Trace Abnormal NEG [facility] Comment on above: Performed By: #### U A #### [facility] ([id number]) [address] [place] [address]173 Color (U) YELLOW Normal YELLOW [facility] Comment on above: Performed By: #### U A #### [facility] ([id number]) [address] [place] [address] 07340 Glucose Ql (U) >1000 Abnormal NEG [facility] Comment on above: Performed By: #### U A #### [facility] ([id number]) [address] [place] [address] 74683 Ketones Ql (U) Negative Normal NEG [facility] Comment on above: Performed By: #### U A #### [facility] ([id number]) [address] [place] [address] 17746 Leukocyte esterase Test strip Ql (U) Negative Normal NEG [facility] Comment on above: Result Comment: HIGH CONCENTRATIONS OF GLUCOSE MAY DECREASE THE REACTIVITY OF THE DIPSTICK LEUKOCYTE TEST PAD. Performed By: #### U A #### [facility] ([id number]) [address] [place] [address] 09657 MUCOUS PRESENT Abnormal NONE [facility] Comment on above: Performed By: #### U A #### [facility] ([id number]) [address] [place] [address] 62941 Nitrite Ql (U) Positive Abnormal NEG [facility] Comment on above: Performed By: #### U A #### [facility] ([id number]) [address] [place] [address] 40031 pH (U) 6.0 [pH] Normal 5.0-8.5 [facility] Comment on above: Performed By: #### U A #### [facility] ([id number]) [address] [place] [address] 28615 Protein Ql (U) >300 Abnormal NEG [facility] Comment on above: Performed By: #### U A #### [facility] ([id number]) [address] [place] [address] 19956 R.B.CELLS 5 /hpf Normal 0-5 [facility] Comment on above: Performed By: #### U A #### [facility] ([id number]) [address] [place] [address] 26968 Specific gravity (U) [Rel density] 1.015 Normal 1.003-1.035 [facility] Comment on above: Performed By: #### U A #### [facility] ([id number]) [address] [place] [address] 91147 SQUAMOUS EPITHELIUM 4 /hpf Normal 0-5 [facility] Comment on above: Performed By: #### U A #### [facility] ([id number]) [address] [place] [address] 68720 TURBIDITY HAZY Abnormal CLEAR [facility] Comment on above: Performed By: #### U A #### [facility] ([id number]) [address] [place] [address] 21446 Urobilinogen Qn (U) 0.2 {Chaya'U}/dL Normal <1.1 [facility] Comment on above: Performed By: #### U A #### [facility] ([id number]) [address] [place] [address] 85216 W.B.CELLS >100 High 0-5 [facility] Comment on above: Performed By: #### U A #### [facility] ([id number]) [address] [place] [address] 61591 URINE CULTUREon 05-06-2023 Bacteria identified Cx Nom (U) SPECIMEN NOTES URINE RECEIVED WITHOUT PRESERVATIVE CULTURE RESULTS MULTIPLE SPECIES PRESENT. PROBABLE COLLECTION CONTAMINATION. SUGGEST REPEAT SPECIMEN. URINE RECEIVED WITHOUT PRESERVATIVE-DELAYS IN TRANSPORT MAY AFFECT RESULTS.INTERPRET WITH CAUTION AND CLINICAL CORRELATION IS RECOMMENDED. Normal [facility] Comment on above: Performed By: #### B [place]CON CBCA, 1987-08, 04282-4 #### [facility] ([id number]) [address] [place] [address] 40878 #### 70343-4 #### [facility] ([id number]) [address] [facility], [address] [place] [address] BASIC METABOLIC PANLon 04-19 Anion gap [Moles/Vol] 6 mmol/L Normal 5-15 [facility] Comment on above: Performed By: #### B AL[place] CBCA, 1987-08, 89198-0 #### [facility] ([id number]) [address] [place] [address] 62033 #### 01693-4 #### [facility] ([id number]) [address] [facility], [address] [place] [address] Calcium [Mass/Vol] 8.6 mg/dL Normal 8.5-10.5 [facility] Comment on above: Performed By: #### B JAMES RONDON, 1987-08, 71153-0 #### [facility] ([id number]) [address] [place] [address] 16839 #### [id number] #### [facility] ([id number]) [address] [place] [address], [address] [place] [address] Chloride [Moles/Vol] 101 mmol/L Normal 98-109 [facility] Comment on above: Performed By: #### JAMES Sanchez MP, 1987-08, #### [facility] ([id number]) [address] [place] [address] 34692 #### [id number] #### [facility] ([id number]) [address] [place] [address], [address] [place] [address] CO2 [Moles/Vol] 19 mmol/L Low 22-32 [facility] Comment on above: Performed By: #### JAMES Sanchez MP, 1987-08, #### [facility] ([id number]) [address] [place] [address] #### 32437-5 #### [facility] ([id number]) [address] [place] [address], [address] [place] [address] Creatinine [Mass/Vol] 2.57 mg/dL High 0.70-1.20 [facility] Comment on above: Result Comment: METH OD TRACEABLE TO IDMS STANDARD Performed By: #### JAMES Sanchez MP, 1987-08, 87625-0 #### [facility] ([id number]) [address] [place] [address] #### [id number] #### [facility] ([id number]) [address] [facility] [address], [address] [place] [address] GFR/1.73 sq M.predicted among non-blacks MDRD (S/P/Bld) [Vol rate/Area] 27 mL/min/{1.73_m2} Low >59 [facility] [facility] Comment on above: Result Comment: Reported eGFR is based on the CKD-EPI 2020 equation that does not use a race coefficient. Performed By: #### JAMES Sanchez MP, 1987-08, 77506-6 #### [facility] ([id number]) [address] [place] [address] 50008 #### 80043-9 #### [facility] ([id number]) [address] [facility], [address] [place] [address] Glucose [Mass/Vol] 377 mg/dL High 65-99 [facility] Comment on above: Performed By: #### JAMES Sanchez MP, 1987-08, #### [facility] ([id number]) [address] [place] [address] 64965 #### 08941-3 #### [facility] ([id number]) [address] [facility], [address] [place] [address] Potassium [Moles/Vol] 4.2 mmol/L Normal 3.5-5.0 [facility] Comment on above: Performed By: #### JAMES Sanchez MP, 1987-08, #### [facility] ([id number]) [address] [place] [address] 00380 #### 25854-5 #### [facility] ([id number]) [address] [facility], [address] [place] [address] Sodium [Moles/Vol] 126 mmol/L Low 134-146 [facility] Comment on above: Performed By: #### JAMES Sanchez MP, 1987-08, #### [facility] ([id number]) [address] [place] [address] 87477 #### 48074-5 #### [facility] ([id number]) [address], [address] [place] [address] Urea nitrogen [Mass/Vol] 30 mg/dL High 5-27 [facility] Comment on above: Performed By: #### B MP, CBCA, 1987-08, 52315-6 #### [facility] ([id number]) [address] [place] [address] 20111 #### 55865-9 #### [facility] ([id number]) [address] [facility], [address] [place] [address] CBC AND AUTO DIFFon 04-19-20 23 ABSOLUTE BASOPHIL 0.1 X10E9/L Normal 0.0-0.2 [facility] Comment on above: Performed By: #### B MP, CBCA, 1987-08, 33086-7 #### [facility] ([id number]) [address] [place] [address] 38221 #### 65507-5 #### [facility] ([id number]) [address] [facility], [address] [place] [address] ABSOLUTE NEUTROPHIL 8.8 X10E9/L High 1.5-6.6 [facility] Comment on above: Performed By: #### B MP, CBCA, 1987-08, 86120-1 #### [facility] ([id number]) [address] [place] [address] 25367 #### 98843-2 #### [facility] ([id number]) [address], [address] [place] [address] Basophils/100 WBC (Bld) 0.5 % Normal [facility] Comment on above: Performed By: #### B MP, CBCA, 1987-08, #### [facility] ([id number]) [address] [place] [address] 97788 #### 33545-0 #### [facility] ([id number]) [address], [address] [place] [address] Eosinophils (Bld) [#/Vol] 0.3 10*3/uL Normal 0.0-0.4 [facility] Comment on above: Performed By: #### B MP, CBCA, 1987-08, #### [facility] ([id number]) [address] [place] [address] 01759 #### 21870-6 #### [facility] ([id number]) [address], [address] [place] [address] Eosinophils/100 WBC (Bld) 2.6 % Normal [facility] Comment on above: Performed By: #### B MP, CBCA, 1987-08, #### [facility] ([id number]) [address] [place] [address] 16879 #### 38309-1 #### [facility] ([id number]) [address], [address] [place] [address] Erythrocyte distribution width (RBC) [Ratio] 15.5 % High 11.5-15.0 [facility] Comment on above: Performed By: #### B MP, CBCA, 1987-08, #### [facility] ([id number]) [address] [place] [address] 54474 #### 98012-4 #### [facility] ([id number]) [address], [address] [place] [address] Hematocrit (Bld) [Volume fraction] 36.8 % Low 39-49 [facility] Comment on above: Performed By: #### B MP, CBCA, 1987-08, #### [facility] ([id number]) [address] [place] [address] 68118 #### 60548-7 #### [facility] ([id number]) [address], [address] [place] [address] Hemoglobin (Bld) [Mass/Vol] 12.0 g/dL Low 13.0-17.0 [facility] Comment on above: Performed By: #### B MP, CBCA, 1987-08, #### [facility] ([id number]) [address] [place] [address] 23940 #### 44737-7 #### [facility] ([id number]) [address], [address] [place] [address] Lymphocytes (Bld) [#/Vol] 1.9 10*3/uL Normal 1.0-3.5 [facility] Comment on above: Performed By: #### B MP, CBCA, 1987-08, #### [facility] ([id number]) [address] [place] [address] 41237 #### 44486-5 #### [facility] ([id number]) [address], [address] [place] [address] Lymphocytes/100 WBC (Bld) 15.1 % Normal [facility] Comment on above: Performed By: #### B MP, CBCA, 1987-08, 76630-9 #### [facility] ([id number]) [address] [place] [address] 51943 #### 94528-1 #### [facility] ([id number]) [address], [address] [place] [address] MCH (RBC) [Entitic mass] 28.2 pg Normal 27-34 [facility] Comment on above: Performed By: #### Laura MP, CBCA, 1987-08, 61724-7 #### [facility] ([id number]) [address] [place] [address] 78330 #### 17326-8 #### [facility] ([id number]) [address], [address] [place] [address] MCHC (RBC) [Mass/Vol] 32.7 g/dL Normal 32-36 [facility] Comment on above: Performed By: #### B [place]CON, CBCA, 1987-08, 90439-4 #### [facility] ([id number]) [address] [place] [address] 96345 #### 94787-0 #### [facility] ([id number]) [address], [address] [place] [address] MCV (RBC) [Entitic vol] 86 fL Normal 80-100 [facility] Comment on above: Performed By: #### Laura RONDON, CBCA, 1987-08, 65081-9 #### [facility] ([id number]) [address] [place] [address] 41961 #### 38904-2 #### [facility] ([id number]) [address], [address] [place] [address] Monocytes (Bld) [#/Vol] 1.4 10*3/uL High 0-0.9 [facility] Comment on above: Performed By: #### B [place], CBCA, 1987-08, 87151-7 #### [facility] ([id number]) [address] [place] [address] 83965 #### 43862-2 #### [facility] ([id number]) [address], [address] [place] [address] Monocytes/100 WBC (Bld) 11.2 % Normal [facility] Comment on above: Performed By: #### B MP, CBCA, 1987-08, 17041-1 #### [facility] ([id number]) [address] [place] [address] 80056 #### 82760-3 #### [facility] ([id number]) [address], [address] [place] [address] Neutrophils/100 WBC (Bld) 70.6 % Normal [facility] Comment on above: Performed By: #### B MP, CBCA, 1987-08, 57437-0 #### [facility] ([id number]) [address] [place] [address] 23064 #### 41688-5 #### [facility] ([id number]) [address], [address] [place] [address] Platelet mean volume (Bld) [Entitic vol] 7.6 fL Normal 7-12 [facility] Comment on above: Performed By: #### B MP, CBCA, 1987-08, 97496-4 #### [facility] ([id number]) [address] [place] [address] 38824 #### 35423-7 #### [facility] ([id number]) [address], [address] [place] [address] Platelets (Bld) [#/Vol] 325 10*3/uL Normal 150-450 [facility] Comment on above: Performed By: #### B MP, CBCA, 1987-08, 58800-7 #### [facility] ([id number]) [address] [place] [address] 40049 #### 20924-4 #### [facility] ([id number]) [address], [address] [place] [address] RBC COUNT 4.27 X10E12/L Normal 4.10-5.70 [facility] Comment on above: Performed By: #### JAMES Sanchez MP, 1987-08, #### [facility] ([id number]) [address] [place] [address] 91960 #### 52246-7 #### [facility] ([id number]) [address], [address] [place] [address] WBC (Bld) [#/Vol] 12.5 10*3/uL High 4.0-11.0 [facility] Comment on above: Performed By: #### JAMES Sanchez MP, 1987-08, #### [facility] ([id number]) [address] [place] [address] 32763 #### 57724-5 #### [facility] ([id number]) [address] [facility], [address] [place] [address] CRP [Mass/Vol]on 04-19-2023 C REACTIVE PROTEIN 7.8 mg/dL High 0.000-0.744 [facility] Comment on above: Performed By: #### JAMES Sanchez MP, 1987-08, #### [facility] ([id number]) [address] [place] [address] 86010 #### 18998-3 #### [facility] ([id number]) [address], [address] [place] [address] ESR Photometric method (Bld) [Velocity]on 04-19-2023 ESR, ERYTHROCYTE SEDIMENTATION RATE 115 mm/h High 0-20 [facility] Comment on above: Performed By: #### JAMES Sanchez MP, 1987-08, #### [facility] ([id number]) [address] [place] [address] 95762 #### 30556-9 #### [facility] ([id number]) [address] [facility], [address] [place] [address] Natriuretic peptide.B prohojian silver N-Terminal [Mass/Vol]on 04-19-2023 NT Pro BNP See Below Normal [facility] Comment on above: Result Comment: NOTE TEST RESULT FLAG UNIT REF.RANGE ---- PRO B Natr Peptide 587 H pg/mL <125 Test Performed By: [facility] [address] [place] [address] Pattern Stamper: Tyler Valle III, M.D. CLIA #[id number] Performed By: #### B MP, CBCA, 1987-08, 82039-0 #### [facility] ([id number]) [address] [place] [address], [place] [address] #### 52379-3 #### [facility] ([id number]) [address] [place] [address], [address] [place] [address] Basic Metabolic Profon 02-27 Anion gap [Moles/Vol] 11 mmol/L Normal - [facility] Comment on above: Performed By: #### S ED, CRP, BMP, CDP #### [facility] [address] [place] [address] Round Kiln Drawer: Jameson Aaron MD BUN/CRE Ratio 16 Normal - [facility] Comment on above: Performed By: #### S ED, CRP, BMP, CDP #### [facility] [address] [place] [address] [employer] Drawer: Jameson Aaron MD Calcium [Mass/Vol] 9.4 mg/dL Normal 8.6-10.4 [facility] Comment on above: Performed By: #### S ED, CRP, BMP, CDP #### [facility] [address] [place], [place] [address] [employer] Drawer: Jameson Aaron MD Chloride [Moles/Vol] 98 mmol/L Normal 98-107 [facility] Comment on above: Performed By: #### S ED, CRP, BMP, CDP #### [facility] [address] [place], [place] [address] [employer] Drawer: Jameson Aaron MD CO2 [Moles/Vol] 18 mmol/L Low 20-31 [facility] Comment on above: Performed By: #### S ED, CRP, BMP, CDP #### [facility] [address] [place], [place] [address] [employer] Drawer: Jameson Aaron MD Creatinine [Mass/Vol] 2.7 mg/dL High 0.7-1.2 [facility] Comment on above: Performed By: #### S ED, CRP, BMP, CDP #### [facility] [address] [place], [place] [address] [employer] Drawer: Jameson Aaron MD GFR/1.73 sq M.predicted among non-blacks MDRD (S/P/Bld) [Vol rate/Area] 26 mL/min/{1.73_m2} Low >60 [facility] Comment on above: Result Comment: These [...] ED, CRP, BMP, CDP #### [facility] [address] [place], [place] 6[address] [employer] Drawer: Jameson Aaron MD Glucose [Mass/Vol] 268 mg/dL High 70-99 [facility] Comment on above: Performed By: #### S ED, CRP, BMP, CDP #### [facility] [address] [place], [place] [address] [employer] Drawer: Jameson Aaron MD Potassium [Moles/Vol] 5.2 mmol/L Normal 3.7-5.3 [facility] Comment on above: Performed By: #### S ED, CRP, BMP, CDP #### [facility] [address] [place] [address] [employer] Drawer: Jameson Aaron MD Sodium [Moles/Vol] 127 mmol/L Low 135-144 [facility] Comment on above: Performed By: #### S ED, CRP, BMP, CDP #### [address] [place] [address] [employer] Drawer: Jameson Aaron MD Urea nitrogen [Mass/Vol] 44 mg/dL High 8-23 [facility] Comment on above: Performed By: #### S ED, CRP, BMP, CDP #### [address] [place], [place] [address] [employer] Drawer: Jameson Aaron MD C-Reactive Proteinon 023 CRP [Mass/Vol] 131.1 mg/L High 0.0-5.0 [facility] Comment on above: Performed By: #### S ED, CRP, BMP, CDP #### [facility] [address] [place], [facility] [employer] Drawer: Jameson Aaron MD CBC with Diffon 02-27-2023 Abs. Basophil 0.06 k/uL Normal 0.00-0.20 [facility] Comment on above: Performed By: #### S ED, CRP, BMP, CDP #### [facility] [address] [place], [place] [address] [employer] Drawer: Jameson Aaron MD Abs.Imm.Granulocyte 0.11 k/uL Normal 0.00-0.30 [facility] Comment on above: Performed By: #### S ED, CRP, BMP, CDP #### [facility] [address] [place] [address] [place] [address] [employer] Drawer: Jameson Aaron MD Abs.Neutrophil (Seg) 6.83 k/uL Normal 1.50-8.10 [facility] Comment on above: Performed By: #### S ED, CRP, BMP, CDP #### [address] [place] [address] [employer] Drawer: Jameson Aaron MD Basophils/100 WBC (Bld) 1 % Normal 0-2 [facility] Comment on above: Performed By: #### S ED, CRP, BMP, CDP #### [address] [place] [address] [employer] Drawer: Jameson Aaron MD Eosinophils (Bld) [#/Vol] 0.22 10*3/uL Normal 0.00-0.44 [facility] Comment on above: Performed By: #### S ED, CRP, BMP, CDP #### [address] [place] [address] [employer] Drawer: Jameson Aaron MD Eosinophils/100 WBC (Bld) 2 % Normal 1-4 [facility] Comment on above: Performed By: #### S ED, CRP, BMP, CDP #### [address] [place], [place] [address] Round [employer] Drawer: Jameson Aaron MD Erythrocyte distribution width (RBC) [Ratio] 14.6 % High 11.8-14.4 [facility] Comment on above: Performed By: #### S ED, CRP, BMP, CDP #### [address] [place] [id number] [employer] Drawer: Jameson Aaron MD Hematocrit (Bld) [Volume fraction] 41.9 % Normal 40.7-50.3 [facility] Comment on above: Performed By: #### S ED, CRP, BMP, CDP #### [facility] [address] [place], [facility]83 [employer] Drawer: Jameson Aaron MD Hemoglobin (Bld) [Mass/Vol] 13.2 g/dL Normal 13.0-17.0 [facility] Comment on above: Performed By: #### S ED, CRP, BMP, CDP #### [facility] [address] [place], [place] [address] [employer] Drawer: Jameson Aaron MD Immature granulocytes/100 WBC (Bld) 1 % High 0 [facility] Comment on above: Performed By: #### S ED, CRP, BMP, CDP #### [address] [place], [facility]83 [employer] Drawer: Jameson Aaron MD Lymphocytes (Bld) [#/Vol] 1.83 10*3/uL Normal 1.10-3.70 [facility] Comment on above: Performed By: #### S ED, CRP, BMP, CDP #### [address] [place], [place] [address] [employer] Drawer: Jameson Aaron MD Lymphocytes/100 WBC (Bld) 18 % Low 24-43 [facility] Comment on above: Performed By: #### S ED, CRP, BMP, CDP #### [address] [place], [facility]83 [employer] Drawer: Jameson Aaron MD MCH (RBC) [Entitic mass] 28.2 pg Normal 25.2-33.5 [facility] Comment on above: Performed By: #### S ED, CRP, BMP, CDP #### [facility] [address] [place], [place] [address] [employer] Drawer: Jameson Aaron MD MCHC (RBC) [Mass/Vol] 31.5 g/dL Normal 28.4-34.8 [facility] Comment on above: Performed By: #### S ED, CRP, BMP, CDP #### [facility] [address] [place], [place] [address] Round [employer] Drawer: Jameson Aaron MD MCV (RBC) [Entitic vol] 89.5 fL Normal 82.6-102.9 [facility] Comment on above: Performed By: #### S ED, CRP, BMP, CDP #### [facility] [address] [place], [place] [address] Round [employer]n Drawer: Jameson Aaron MD Monocytes (Bld) [#/Vol] 1.42 10*3/uL High 0.10-1.20 [facility] Comment on above: Performed By: #### S ED, CRP, BMP, CDP #### [address] [place] [address] Round [employer] Drawer: Jameson Aaron MD Monocytes/100 WBC (Bld) 14 % High 3-12 [facility] Comment on above: Performed By: #### S ED, CRP, BMP, CDP #### [address] [place], [place] [address] Round [employer] Drawer: Jameson Aaron MD Neutrophil (Seg) 64 % Normal 36-65 [facility] Comment on above: Performed By: #### S ED, CRP, BMP, CDP #### [address] [place], [place] [address] Round [employer] Drawer: Jameson Aaron MD NRBC Automated 0.0 per 100 WBC Normal 0.0 [facility] Comment on above: Performed By: #### S ED, CRP, BMP, CDP #### [address] [place], [facility]83 [employer] Drawer: Jameson Aaron MD Platelet mean volume (Bld) [Entitic vol] 9.4 fL Normal 8.1-13.5 [facility] Comment on above: Performed By: #### S ED, CRP, BMP, CDP #### [facility] [address] [place] [address] [employer] Drawer: Jameson Aaron MD Platelets (Bld) [#/Vol] 266 10*3/uL Normal 138-453 [facility] Comment on above: Performed By: #### S ED, CRP, BMP, CDP #### [facility] [address] [place], [place] [address] [employer] Drawer: Jameson Aaron MD RBC (Bld) [#/Vol] 4.68 10*6/uL Normal 4.21-5.77 [facility] Comment on above: Performed By: #### S ED, CRP, BMP, CDP #### [facility] [address] [place], [place] [address] Round [employer] Drawer: Jameson Aaron MD WBC (Bld) [#/Vol] 10.5 10*3/uL Normal 3.5-11.3 [facility] Comment on above: Performed By: #### S ED, CRP, BMP, CDP #### [facility] [address] [place], [facility]83 [employer] Drawer: Jameson Aaron MD Sedimentation Rateon 023 Sedimentation Rate 114 mm/Hr High 0-20 [facility] Comment on above: Performed By: #### S ED, CRP, BMP, CDP #### [facility] [address] [place], [facility]83 [employer] Drawer: Jameson Aaron MD FUNGAL CULTUREon 09-21-2022 Fungus (Mycology) Culture Final report Abnormal [facility] Comment on above: Performed By: #### C XFUN ####[facility] [address] [place] [id number]. Eddie Lerner Fungus Stain Final report Normal [facility] Comment on above: Performed By: #### C XFUN ####[facility] [address] [place] [id number]. Eddie Lerner Result 1 Comment Normal [facility] Comment on above: Result Comment: ANNEMARIE/ Calcofluor preparation: no fungus observed. Performed By: #### C XFUN ####[facility] [address] [place] [address]DrVaishali Lerner Result 1 Rosy albicans Abnormal [facility] Comment on above: Performed By: #### C XFUN ####[facility] [address] [place] [address]Dr. Eddie Lerner CULTURE OTHERon 08-23-2022 CULTURE OTHER Isolate 1 Enterococcus faecalis Light growth of ORGANISM 1 Enterococcus faecalis ANTIBIOTIC M.I.C RX STATUS Beta-Lactamase Neg NEG F Benzylpenicillin 0.5 S F Ampicillin <=2 S F Gentamicin High Level (synergy) SYN-R R F Streptomycin High Level (synergy) SYN-S S F Quinupristin/Dalfopristin 4 R F Linezolid 1 S F Vancomycin 1 S F Normal [facility] Comment on above: Performed By: #### O THCX ####[facility] [address] [place], [place] [address]Dr. Eddie Lerner ACID FAST SMEAR AND CXon Acid Fast Smear Negative Normal [facility] Comment on above: Performed By: #### A FB ####[facility] [address] [place], [place] [address]DrVaishali Lerner [employer] Specimen Processing Tissue Grinding Normal [facility] Comment on above: Performed By: #### A FB ####[facility] [address] [place] [address]Dr. Eddie Lerner BNPon 08-20-2022 Natriuretic peptide B (Bld) [Mass/Vol] 648.0 pg/mL Normal <=900.0 [facility] Comment on above: Performed By: #### A 1C #### [facility] [address] [place] [address] [address] Eddie Lerner CULTURE ANAEROBICon 08-21-19 23 CULTURE ANAEROBIC Culture Observations : NO GROWTH OF ANAEROBES AT 72 HOURS. Normal [facility] Comment on above: Performed By: #### A NACX ####[facility] [address] [place], [place] [address]Dr. Eddie Lerner GLYCOHEMOGLOBIN A1Con 2022 ADA RECOMMENDATION SEE BELOW Normal [facility] Comment on above: Result Comment: ADA RECOMMENDED LIMIT 4.0 - 6.0 ADA THERAPEUTIC TARGET < 7.0 ACTION SUGGESTED > 7.0 Performed By: #### R ENAL, LIPID, LIVER, TSH #### [facility] [address] [place] [address] [address] Eddie eLrner Glucose [Mass/Vol] 235 mg/dL Normal [facility] Comment on above: Performed By: #### R ENAL, LIPID, LIVER, TSH #### [facility] [address] [place] [address] [address] Eddie Lerner HbA1c (Bld) [Mass fraction] 9.8 % Critically high 4.5-6.2 [facility] Comment on above: Performed By: #### R ENAL, LIPID, LIVER, TSH #### [facility] [address] [place] [address] [address] Eddie Lerner GRAM STAINon 08-20-2022 COMMENTS NO ORGANISMS OBSERVED Normal [facility] Comment on above: Performed By: #### G STAIN ####[facility] [address] [place] [address]Dr. Eddie Lerner DIPHTHEROIDS Normal [facility] Comment on above: Performed By: #### G STAIN ####[facility] [address] [place] [address]Dr. Eddie Lerner EPITHELIALS Normal [facility] Comment on above: Performed By: #### G STAIN ####[facility] [address] [place] [address]Dr. Eddie Lerner FUNGAL ELEMENTS Normal [facility] Comment on above: Performed By: #### G STAIN ####[facility] [address] [place] [address]Dr. Eddie Lerner GRAM NEG BACILLI Normal [facility] Comment on above: Performed By: #### G STAIN ####[facility] [address] [place] [address]Dr. Eddie Lerner GRAM NEG DIPPLOCOCCI Normal [facility] Comment on above: Performed By: #### G STAIN ####[facility] [address] [place] [address]Dr. Eddie Lerner GRAM POS BACILLI Normal [facility] Comment on above: Performed By: #### G STAIN ####[facility] [address] [place] [address]Dr. Eddie Lerner GRAM POSITIVE COCCI Normal [facility] Comment on above: Performed By: #### G STAIN ####[facility] [address] [place] [address]Dr. Eddie Lerner GRAM STAIN SOURCE Lt Foot Bone Normal [facility] Comment on above: Performed By: #### G STAIN ####[facility] [address] [place] [address]Dr. Eddie Lerner GS_DIPTH Normal [facility] Comment on above: Performed By: #### G STAIN ####[facility] [address] [place] [address]Dr. Eddie Lerner WBC RARE Normal [facility] Comment on above: Performed By: #### G STAIN ####[facility] [address] [place] [address]Dr. Eddie Lerner LIPID PROFILEon 08-20-2022 CHOL-HDL RATIO NORM SEE BELOW Normal [facility] Comment on above: Result Comment: 3.3 - 4.4 LOW RISK 4.4 - 7.1 AVERAGE RISK 7.1 - 11.0 MODERATE RISK >11.0 HIGH RISK Performed By: #### A 1C #### [facility] [address] [address] [address] Eddie Lerner Cholesterol [Mass/Vol] 137 mg/dL Normal <=200 [facility] Comment on above: Performed By: #### A 1C #### [facility] [address] [address] [address] Eddie Lerner Cholesterol in HDL [Mass/Vol] 54 mg/dL Normal 40-60 [facility] Comment on above: Performed By: #### A 1C #### [facility] [address] [address] [address] Eddie Lerner Cholesterol in LDL [Mass/Vol] 63.2 mg/dL Normal [facility] Comment on above: Performed By: #### A 1C #### [facility] [address] [address] [address] Eddie Lerner Cholesterol.total/C holesterol in HDL [Mass ratio] 2.5 {ratio} Normal [facility] Comment on above: Performed By: #### A 1C #### [facility] [address] [address] [address] Eddie Lerner HDL NORMAL > or = 60 mg/dl - LO W CARDIOVASCULAR RISK <40 mg/dl - HIGH CARDIOVASCULAR RISK Normal [facility] Comment on above: Performed By: #### A 1C #### [facility] [address] [address] [address] Eddie Lerner LDL CALC NORMAL SEE BELOW Normal [facility] Comment on above: Result Comment: <100 mg/dl OPTIMAL 100 - 129 mg/dl NEAR OR ABOVE OPTIMAL 130 - 159 mg/dl BORDERLINE HIGH 160 - 189 mg/dl HIGH >190 mg/dl VERY HIGH Performed By: #### A 1C #### [facility] [address] [place] [address] Dr. Eddie Lerner Triglyceride [Mass/Vol] 99 mg/dL Normal <=150 [facility] Comment on above: Performed By: #### A 1C #### [facility] [address] [place] [address] Dr. Eddie Lerner VLDL CALC 19.8 mg/dL Normal [facility] Comment on above: Performed By: #### A 1C #### [facility] [address] [address] [address] Eddie Lerner LIVER PROFILEon 08-20-2022 Albumin [Mass/Vol] 2.8 g/dL Critically low 3.4-5.0 [facility] Comment on above: Performed By: #### A 1C #### [facility] [address] [place] [address] Dr. Eddie Lerner Albumin/Globulin [Mass ratio] 0.6 {ratio} Normal [facility] Comment on above: Performed By: #### A 1C #### [facility] [address] [place] [address] Dr. Eddie Lerner ALP [Catalytic activity/Vol] 87 U/L Normal 46-116 [facility] Comment on above: Performed By: #### A 1C #### [facility] [address] [place] [address] Dr. Eddie Lerner ALT [Catalytic activity/Vol] 49 U/L Normal 16-63 [facility] Comment on above: Performed By: #### A 1C #### [facility] [address] [place] [address] Dr. Eddie Lerner AST [Catalytic activity/Vol] 36 U/L Normal 15-37 [facility] Comment on above: Performed By: #### A 1C #### [facility] [address] [place] [address] Dr. Eddie Lerner BILI, CONJUGATED 0.1 mg/dL Normal 0.0-0.2 [facility] Comment on above: Performed By: #### A 1C #### [facility] [address] [place] [address] Dr. Eddie Lerner Bilirubin [Mass/Vol] 0.4 mg/dL Normal 0.2-1.0 [facility] Comment on above: Performed By: #### A 1C #### [facility] [address] [place] [address] Dr. Eddie Lerner Globulin (S) [Mass/Vol] 4.4 g/dL Normal [facility] Comment on above: Performed By: #### A 1C #### [facility] [address] [place] [address] Dr. Eddie Lerner Protein [Mass/Vol] 7.2 g/dL Normal 6.4-8.2 [facility] Comment on above: Performed By: #### A 1C #### [facility] [address] [place] [address] Dr. Eddie Lerner POINT OF CARE GLUCOSEon 04-2 Glucose [Mass/Vol] 107 mg/dL Critically high 74-106 [facility] Comment on above: Performed By: #### P OCGLUC #### [facility] [address] [place] [address] Dr. Eddie Lerner Glucose [Mass/Vol] 108 mg/dL Critically high 74-106 [facility] Comment on above: Performed By: #### P OCGLUC ####[facility] [address] [address]DrVaishali Lerner TSHon 08-20-2022 TSH 2.247 uIU/mL Normal 0.358-3.740 [facility] Comment on above: Performed By: #### A 1C #### [facility] [address] [address] [address]ishali Lerner CBC AUTO DIFFon 08-15-2022 BASO # 0.0 103/ul Normal 0.0-0.1 [facility] Comment on above: Performed By: #### C BC ####[facility] [address] [address]DrVaishali Lerner Basophils/100 WBC (Bld) 0.4 % Normal 0.2-2.0 [facility] Comment on above: Performed By: #### C BC ####[facility] [address] [place], [place] [address]DrVaishali Lerner EO # 0.2 103/ul Normal 0.0-0.7 [facility] Comment on above: Performed By: #### C BC ####[facility] [address] [address]DrVaishali Lerner Eosinophils/100 WBC (Bld) 2.0 % Normal 0.9-7.0 [facility] Comment on above: Performed By: #### C BC ####[facility] [address] [address]DrVaishali Lerner Erythrocyte distribution width (RBC) [Ratio] 14.5 % Normal 11.0-15.0 [facility] Comment on above: Performed By: #### C BC ####[facility] [address] [address]DrVaishali Lerner Hematocrit (Bld) [Volume fraction] 40.5 % Critically low 42.0-54.0 [facility] Comment on above: Performed By: #### C BC ####[facility] [address] [id number]. Eddie Lerner Hemoglobin (Bld) [Mass/Vol] 13.1 g/dL Critically low 14.0-18.0 [facility] Comment on above: Performed By: #### C BC ####[facility] [address] [id number]. Eddie Lerner IG # 0.12 10e3/ul Critically high 0.00-0.03 [facility] Comment on above: Performed By: #### C BC ####[facility] [address] [address]Dr. Eddie Lerner IG % 1.2 % Critically high 0.0-0.5 [facility] Comment on above: Performed By: #### C BC ####[facility] [address] [address]Dr. Eddie Lerner LYMPH # 1.4 103/ul Normal 1.2-3.8 [facility] Comment on above: Performed By: #### C BC ####[facility] [address] [address]Dr. Eddie Lerner Lymphocytes/100 WBC (Bld) 13.6 % Critically low 20.5-60.0 [facility] Comment on above: Performed By: #### C BC ####[facility] [address] [address]Dr. Eddie Lerner MANUAL DIFF REQ NO Normal [facility] Comment on above: Performed By: #### C BC ####[facility] [address] [address]Dr. Eddie Lerner MCH (RBC) [Entitic mass] 29.8 pg Normal 25.9-34.0 [facility] Comment on above: Performed By: #### C BC ####[facility] [address] [place], [place] [address]Dr. Eddie Lerner MCHC (RBC) [Mass/Vol] 32.3 g/dL Normal 29.9-35.2 [facility] Comment on above: Performed By: #### C BC ####[facility] [address] [id number]. Eddie Lerner MCV (RBC) [Entitic vol] 92.0 fL Normal 80.0-94.0 [facility] Comment on above: Performed By: #### C BC ####[facility] [address] [id number]. Eddie Lerner MONO # 0.5 103/ul Normal 0.3-0.8 [facility] Comment on above: Performed By: #### C BC ####[facility] [address] [address]Dr. Eddie Lerner Monocytes/100 WBC (Bld) 4.8 % Normal 1.7-12.0 [facility] Comment on above: Performed By: #### C BC ####[facility] [address] [place], [place] [address]Dr. Eddie Lerner NEUT # 8.1 103/ul Critically high 1.4-6.5 [facility] Comment on above: Performed By: #### C BC ####[facility] [address] [place], [place] [address]Dr. Eddie Lerner Neutrophils/100 WBC (Bld) 78.0 % Critically high 43.0-75.0 [facility] Comment on above: Performed By: #### C BC ####[facility] [address] [place], [place] [address]Dr. Eddie Lerner Platelet mean volume (Bld) [Entitic vol] 8.6 fL Critically low 9.5-13.5 [facility] Comment on above: Performed By: #### C BC ####[facility] [address] [id number]. Eddie Yann PLT 240 103/ul Normal 150-450 [facility] Comment on above: Performed By: #### C BC ####[facility] [address] [id number]. Dainaquincy Yann RBC 4.40 106/ul Critically low 4.70-6.10 [facility] Comment on above: Performed By: #### C BC ####[facility] [address] [address]Dr. Eddie Lerner WBC 10.3 103/ul Normal 4.0-11.0 [facility] Comment on above: Performed By: #### C BC ####[facility] [address] [address]Dr. Eddie Lerner CRPon 08-15-2022 CRP [Mass/Vol] mg/L Normal <=1.0 [facility] Comment on above: Performed By: #### A 1C #### [facility] [address] [address] [address] Eddie Lerner PROF CHEM 8 (BAS METB)on Anion gap [Moles/Vol] 14.4 mmol/L Normal [facility] Comment on above: Performed By: #### A 1C #### [facility] [address] [place] [address] Dr. Eddie Lerner Calcium [Mass/Vol] 9.2 mg/dL Normal 8.5-10.1 [facility] Comment on above: Performed By: #### A 1C #### [facility] [address] [address] [address] Eddie Lerner Chloride [Moles/Vol] 101 mmol/L Normal 98-107 [facility] Comment on above: Performed By: #### A 1C #### [facility] [address] [place] [address] Dr. Eddie Lerner CO2 [Moles/Vol] 25.2 mmol/L Normal 21.0-32.0 [facility] Comment on above: Performed By: #### A 1C #### [facility] [address] [address] [address] Eddie Lerner Creatinine [Mass/Vol] 3.07 mg/dL Critically high 0.70-1.30 [facility] Comment on above: Performed By: #### A 1C #### [facility] [address] [place] [address] Dr. Eddie Lenrer EGFR-AF [place] 25 mL/min/1.73m2 Critically low >=60 [facility] Comment on above: Performed By: #### A 1C #### [facility] [address] [address] [address] Eddie Lerner EGFR-NON AF [place] 21 mL/min/1.73m2 Critically low >=60 [facility] Comment on above: Performed By: #### A 1C #### [facility] [address] [address] [address] Eddie Lerner Glucose [Mass/Vol] 415 mg/dL Critically high 74-106 T [facility] Comment on above: Performed By: #### A 1C #### [facility] [address] [address] [address] Eddie Lerner Potassium [Moles/Vol] 5.6 mmol/L Critically high 3.5-5.1 [facility] Comment on above: Performed By: #### A 1C #### [facility] [address] [address] [address] Eddie Lerner Sodium [Moles/Vol] 135 mmol/L Critically low 136-[address] [facility] Comment on above: Performed By: #### A 1C #### [facility] [address] [address] [address] Eddie Lerner Urea nitrogen [Mass/Vol] 34.0 mg/dL Critically high 7.0-18.0 [facility] Comment on above: Performed By: #### A 1C #### [facility] [address] [address] [address] Eddie Lerner Urea nitrogen/Creatinine [Mass ratio] 11.1 mg/mg Normal [facility] Comment on above: Performed By: #### A 1C #### [facility] [address] [address] [address] Eddie Lerner SED RATE WESTERGREN 2022 SED RATE 59 mm/hr Critically high <=20 [facility] Comment on above: Performed By: #### S EDR ####[facility] [address] [address]Dr. Eddie Lerner BNPon 06-06-2022 Natriuretic peptide B (Bld) [Mass/Vol] 1342.0 pg/mL Critically high <=900.0 [facility] Comment on above: Performed By: #### B PLANT GUARD ####[facility] [address] [place], [place] [address]ZzDr. Eddie Lerner CBC AUTO DIFFon 06-06-2022 BASO # 0.1 103/ul Normal 0.0-0.1 [facility] Comment on above: Performed By: #### A 1C #### [facility] [address] [address] [address] Eddie Lerner Basophils/100 WBC (Bld) 0.6 % Normal 0.2-2.0 [facility] Comment on above: Performed By: #### A 1C #### [facility] [address] [address] [address] Eddie Lerner EO # 0.2 103/ul Normal 0.0-0.7 [facility] Comment on above: Performed By: #### A 1C #### [facility] [address] [address] [address] Eddie Lerner Eosinophils/100 WBC (Bld) 1.8 % Normal 0.9-7.0 [facility] Comment on above: Performed By: #### A 1C #### [facility] [address] [address] [address] Eddie Lerner Erythrocyte distribution width (RBC) [Ratio] 15.2 % Critically high 11.0-15.0 [facility] Comment on above: Performed By: #### A 1C #### [facility] [address] [address] [address] Eddie Lerner Hematocrit (Bld) [Volume fraction] 39.0 % Critically low 42.0-54.0 [facility] Comment on above: Performed By: #### A 1C #### [facility] [address] [address] [address] Eddie Lerner Hemoglobin (Bld) [Mass/Vol] 12.4 g/dL Critically low 14.0-18.0 [facility] Comment on above: Performed By: #### A 1C #### [facility] [address] [address] [address] Eddie Lerner IG # 0.21 10e3/ul Critically high 0.00-0.03 [facility] Comment on above: Performed By: #### A 1C #### [facility] [address] [place] [address] Dr. Eddie Lerner IG % 1.6 % Critically high 0.0-0.5 [facility] Comment on above: Performed By: #### A 1C #### [facility] [address] [place] [address] Dr. Eddie Lerner LYMPH # 1.9 103/ul Normal 1.2-3.8 [facility] Comment on above: Performed By: #### A 1C #### [facility] [address] [place] [address] Dr. Eddie Lerner Lymphocytes/100 WBC (Bld) 13.8 % Critically low 20.5-60.0 [facility] Comment on above: Performed By: #### A 1C #### [facility] [address] [place] [address] Dr. Eddie Lerner MANUAL DIFF REQ NO Normal [facility] Comment on above: Performed By: #### A 1C #### [facility] [address] [place] [address] Dr. Eddie Lerner MCH (RBC) [Entitic mass] 27.8 pg Normal 25.9-34.0 [facility] Comment on above: Performed By: #### A 1C #### [facility] [address] [place] [address] Dr. Eddie Lerner MCHC (RBC) [Mass/Vol] 31.8 g/dL Normal 29.9-35.2 [facility] Comment on above: Performed By: #### A 1C #### [facility] [address] [place] [address] Dr. Eddie Lerner MCV (RBC) [Entitic vol] 87.4 fL Normal 80.0-94.0 [facility] Comment on above: Performed By: #### A 1C #### [facility] [address] [place] [address] Dr. Eddie Lerner MONO # 0.8 103/ul Normal 0.3-0.8 [facility] Comment on above: Performed By: #### A 1C #### [facility] [address] [address] [address] Eddie Lerner Monocytes/100 WBC (Bld) 5.9 % Normal 1.7-12.0 [facility] Comment on above: Performed By: #### A 1C #### [facility] [address] [address] [address] Eddie Lerner NEUT # 10.3 103/ul Critically high 1.4-6.5 [facility] Comment on above: Performed By: #### A 1C #### [facility] [address] [place] [address] Dr. Eddie Lerner Neutrophils/100 WBC (Bld) 76.3 % Critically high 43.0-75.0 [facility] Comment on above: Performed By: #### A 1C #### [facility] [address] [place] [address] Dr. Eddie Lerner Platelet mean volume (Bld) [Entitic vol] 10.2 fL Normal 9.5-13.5 [facility] Comment on above: Performed By: #### A 1C #### [facility] [address] [address] [address] Eddie Lerner PLT 288 103/ul Normal 150-450 [facility] Comment on above: Performed By: #### A 1C #### [facility] [address] [place] [address] Dr. Eddie Lerner RBC 4.46 106/ul Critically low 4.70-6.10 [facility] Comment on above: Performed By: #### A 1C #### [facility] [address] [place] [address] Dr. Eddie Lerner WBC 13.5 103/ul Critically high 4.0-11.0 [facility] Comment on above: Performed By: #### A 1C #### [facility] [address] [place] [address] Dr. Eddie Lerner GLYCOHEMOGLOBIN A1Con 2022 ADA RECOMMENDATION SEE BELOW Normal [facility] Comment on above: Result Comment: ADA RECOMMENDED LIMIT 4.0 - 6.0 ADA THERAPEUTIC TARGET < 7.0 ACTION SUGGESTED > 7.0 Performed By: #### A 1C #### [facility] [address] [address] [address] Eddie Lerner Glucose [Mass/Vol] 283 mg/dL Normal [facility] Comment on above: Performed By: #### A 1C #### [facility] [address] [address] [address] Eddie Lerner HbA1c (Bld) [Mass fraction] 11.5 % Critically high 4.5-6.2 [facility] Comment on above: Performed By: #### A 1C #### [facility] [address] [address] [address] Eddie Lerner LIPID PROFILEon 06-06-2022 CHOL-HDL RATIO NORM SEE BELOW Normal [facility] Comment on above: Result Comment: 3.3 - 4.4 LOW RISK 4.4 - 7.1 AVERAGE RISK 7.1 - 11.0 MODERATE RISK >11.0 HIGH RISK Performed By: #### R ENAL, LIPID, LIVER, TSH #### [facility] [address] [address] [address] Eddie Lerner Cholesterol [Mass/Vol] 152 mg/dL Normal <=200 [facility] Comment on above: Performed By: #### R ENAL, LIPID, LIVER, TSH #### [facility] [address] [place] [address] Dr. Eddie Lerner Cholesterol in HDL [Mass/Vol] 51 mg/dL Normal 40-60 [facility] Comment on above: Performed By: #### R ENAL, LIPID, LIVER, TSH #### [facility] [address] [address] [address] Eddie Lerner Cholesterol in LDL [Mass/Vol] 61.0 mg/dL Normal [facility] Comment on above: Performed By: #### R ENAL, LIPID, LIVER, TSH #### [facility] [address] [place] [address] Dr. Eddie Lerner Cholesterol.total/C holesterol in HDL [Mass ratio] 3.0 {ratio} Normal [facility] Comment on above: Performed By: #### R ENAL, LIPID, LIVER, TSH #### [facility] [address] [address] [address] Eddie Lerner HDL NORMAL > or = 60 mg/dl - LO W CARDIOVASCULAR RISK <40 mg/dl - HIGH CARDIOVASCULAR RISK Normal [facility] Comment on above: Performed By: #### R ENAL, LIPID, LIVER, TSH #### [facility] [address] [address] [address] Eddie Lerner LDL CALC NORMAL SEE BELOW Normal [facility] Comment on above: Result Comment: <100 mg/dl OPTIMAL 100 - 129 mg/dl NEAR OR ABOVE OPTIMAL 130 - 159 mg/dl BORDERLINE HIGH 160 - 189 mg/dl HIGH >190 mg/dl VERY HIGH Performed By: #### R ENAL, LIPID, LIVER, TSH #### [facility] [address] [address] [address] Eddie Lerner Triglyceride [Mass/Vol] 200 mg/dL Critically high <=150 [facility] Comment on above: Performed By: #### R ENAL, LIPID, LIVER, TSH #### [facility] [address] [address] [address] Eddie Lerner VLDL CALC 40.0 mg/dL Normal [facility] Comment on above: Performed By: #### R ENAL, LIPID, LIVER, TSH #### [facility] [address] [address] [address] Eddie Lerner LIVER PROFILEon 06-06-2022 Albumin [Mass/Vol] 2.6 g/dL Critically low 3.4-5.[address] [facility] Comment on above: Performed By: #### R ENAL, LIPID, LIVER, TSH #### [facility] [address] [address] [address] Eddie Lerner Albumin/Globulin [Mass ratio] 0.6 {ratio} Normal [facility] Comment on above: Performed By: #### R ENAL, LIPID, LIVER, TSH #### [facility] [address] [address] [address] Eddie Lerner ALP [Catalytic activity/Vol] 120 U/L Critically high 46-116 [facility] Comment on above: Performed By: #### R ENAL, LIPID, LIVER, TSH #### [facility] [address] [address] [address] Eddie Lerner ALT [Catalytic activity/Vol] 22 U/L Normal 16-63 [facility] Comment on above: Performed By: #### R ENAL, LIPID, LIVER, TSH #### [facility] [address] [place] [address] Dr. Eddie Lerner AST [Catalytic activity/Vol] 15 U/L Normal 15-37 [facility] Comment on above: Performed By: #### R ENAL, LIPID, LIVER, TSH #### [facility] [address] [place] [address] Dr. Eddie Lerner BILI, CONJUGATED 0.1 mg/dL Normal 0.0-0.2 [facility] Comment on above: Performed By: #### R ENAL, LIPID, LIVER, TSH #### [facility] [address] [place] [address] Dr. Eddie Lerner Bilirubin [Mass/Vol] 0.3 mg/dL Normal 0.2-1.0 [facility] Comment on above: Performed By: #### R ENAL, LIPID, LIVER, TSH #### [facility] [address] [place] [address] Dr. Eddie Lerner Globulin (S) [Mass/Vol] 4.7 g/dL Normal [facility] Comment on above: Performed By: #### R ENAL, LIPID, LIVER, TSH #### [facility] [address] [place] [address] Dr. Eddie Lerner Protein [Mass/Vol] 7.3 g/dL Normal 6.4-8.2 [facility] Comment on above: Performed By: #### R ENAL, LIPID, LIVER, TSH #### [facility] [address] [place] [address] Dr. Eddie Lerner RENAL FUNCTION PANELon 06-06 Calcium [Mass/Vol] 9.0 mg/dL Normal 8.5-10.1 [facility] Comment on above: Performed By: #### R ENAL, LIPID, LIVER, TSH #### [facility] [address] [address] [address] Eddie Lerner Chloride [Moles/Vol] 96 mmol/L Critically low 98-107 [facility] Comment on above: Performed By: #### R ENAL, LIPID, LIVER, TSH #### [facility] [address] [address] [address] Eddie Lerner CO2 [Moles/Vol] 21.8 mmol/L Normal 21.0-32.0 [facility] Comment on above: Performed By: #### R ENAL, LIPID, LIVER, TSH #### [facility] [address] [address] [address] Eddie Lerner Creatinine [Mass/Vol] 2.38 mg/dL Critically high 0.70-1.30 [facility] Comment on above: Performed By: #### R ENAL, LIPID, LIVER, TSH #### [facility] [address] [place] [address] Dr. Eddie Lerner EGFR-AF [place] 34 mL/min/1.73m2 Critically low >=60 [facility] Comment on above: Performed By: #### R ENAL, LIPID, LIVER, TSH #### [facility] [address] [place] [address] Dr. Eddie Lerner EGFR-NON AF [place] 28 mL/min/1.73m2 Critically low >=60 [facility] Comment on above: Performed By: #### R ENAL, LIPID, LIVER, TSH #### [facility] [address] [place] [address] Dr. Eddie Lerner Glucose [Mass/Vol] 523 mg/dL Critically high 74-106 [facility] Comment on above: Performed By: #### R ENAL, LIPID, LIVER, TSH #### [facility] [address] [place] [address] Dr. Eddie Lerner Phosphate [Mass/Vol] 4.1 mg/dL Normal 2.6-4.7 [facility] Comment on above: Performed By: #### R ENAL, LIPID, LIVER, TSH #### [facility] [address] [place] [address] Dr. Eddie Lerner Potassium [Moles/Vol] 4.6 mmol/L Normal 3.5-5.1 [facility] Comment on above: Performed By: #### R ENAL, LIPID, LIVER, TSH #### [facility] [address] [place] [address] Dr. Eddie Lerner Sodium [Moles/Vol] 128 mmol/L Critically low 136-[address] [facility] Comment on above: Performed By: #### R ENAL, LIPID, LIVER, TSH #### [facility] [address] [place] [address] Dr. Eddie Lerner Urea nitrogen [Mass/Vol] 28.0 mg/dL Critically high 7.0-18.0 [facility] Comment on above: Performed By: #### R ENJOHN, LIPID, LIVER, TSH #### [facility] [address] [place] [address] Dr. Eddie Lerner TSHon 06-06-2022 TSH 1.308 uIU/mL Normal 0.358-3.740 [facility] Comment on above: Performed By: #### R ENJOHN, LIPID, LIVER, TSH #### [facility] [address] [place] [address] Dr. Eddie Lerner UA RANDOMon 06-06-2022 Bilirubin Ql (U) Negative Normal NEGATIVE [facility] Comment on above: Performed By: #### U A #### [facility] [address] [place] [address] Dr. Eddie Lerner Clarity (U) CLEAR Normal CLEAR [facility] Comment on above: Performed By: #### U A #### [facility] [address] [place] [address] Dr. Eddie Lerner Color (U) LT. YELLOW Normal YELLOW [facility] Comment on above: Performed By: #### U A #### [facility] [address] [place] [address] Dr. Eddie Lerner Glucose Ql (U) >1000 Abnormal NEGATIVE [facility] Comment on above: Performed By: #### U A #### [facility] [address] [place] [address] Dr. Eddie Lerner Hemoglobin Ql (U) TRACE-INTACT Abnormal NEGATIVE [facility] Comment on above: Performed By: #### U A #### [facility] [address] [place] [address] Dr. Eddie Lerner Ketones Ql (U) Negative Normal NEGATIVE [facility] Comment on above: Performed By: #### U A #### [facility] [address] [place] [address] Dr. Eddie Lerner LEUKOCYTES Negative Normal NEGATIVE [facility] Comment on above: Performed By: #### U A #### [facility] [address] [place] [address] Dr. Eddie Lerner Nitrite Ql (U) Negative Normal NEGATIVE [facility] Comment on above: Performed By: #### U A #### [facility] [address] [place] [address] Dr. Eddie Lerner pH (U) 6.5 [pH] Normal 5-9 [facility] Comment on above: Performed By: #### U A #### [facility] [address] [place] [address] Dr. Eddie Lerner SPEC GRAVITY 1.010 Normal 1.005-<=1.025 [facility] Comment on above: Performed By: #### U A #### [facility] [address] [place] [address] Dr. Eddie Lerner UA PROTEIN 100 mg/dl Abnormal NEGATIVE/ TRACE [facility] Comment on above: Performed By: #### U A #### [facility] [address] [place] [address] Dr. Eddie Lerner Urobilinogen Qn (U) 0.2 {Chaya'U}/dL Normal 0.2 - 1. 0 [facility] Comment on above: Performed By: #### U A #### [facility] [address] [place] [address] Dr. Eddie Lerner VITAMIN D 25 OHon 06-06-2022 VIT D 25-OH 13.9 ng/mL Normal [facility] Comment on above: Performed By: #### V ITAD ####[facility] [address] [place] [id number] Eddie Lerner VIT D RANGES SEE BELOW Normal [facility] Comment on above: Result Comment: <20 ng/mL Vit D deficient 20 - <30 ng/mL Vit D insufficient 30 - 100 ng/mL Vit D sufficient >100 ng/mL Potential Toxicity Performed By: #### V ITAD ####[facility] [address] [address]Dr. Eddie Lerner ACID FAST SMEAR AND CXon Acid Fast Culture Negative Normal [facility] Comment on above: Result Comment: No a wendy fast bacilli isolated after 6 weeks. Performed By: #### A FB ####[facility] [address] [place], [place] [address]Dr. Eddie Lerner Acid Fast Smear Negative Normal [facility] Comment on above: Performed By: #### A FB ####[facility] [address] [place], [place] [address]Dr. Eddie Lerner [employer] Specimen Processing Tissue Grinding Normal [facility] Comment on above: Performed By: #### A FB ####[facility] [address] [address]. Eddie Lerner FUNGAL CULTUREon 01-19-2022 Fungus (Mycology) Culture Final report Normal [facility] Comment on above: Performed By: #### R ENJOHN, LIPID, LIVER, TSH #### [facility] [address] [address] [address] Eddie Lerner Fungus Stain Final report Normal [facility] Comment on above: Performed By: #### R ENAL, LIPID, LIVER, TSH #### [facility] [address] [address] [address] Eddie Lerner Result 1 Comment Normal [facility] Comment on above: Result Comment: ANNEMARIE/ Calcofluor preparation: no fungus observed. Performed By: #### R ENAL, LIPID, LIVER, TSH #### [facility] [address] [address] [address] Eddie Lerner Result Comment: No y east or mold isolated after 4 weeks. POINT OF CARE GLUCOSEon - Glucose [Mass/Vol] 177 mg/dL Critically high 74-106 [facility] Comment on above: Performed By: #### A 1C #### [facility] [address] [address] [address] Eddie Lerner Glucose [Mass/Vol] 200 mg/dL Critically high 74-106 [facility] Comment on above: Performed By: #### P OCGLUC ####[facility] [address] [place], [place] [address]JdDr. Eddie Lerner Covid-19 PCR (CVDTBH)on 12-28 SARS-CoV-2 (COVID-19) RNA SUDHA+probe Ql (Unsp spec) Not detected Normal NOT DETECTED [facility] Comment on above: Result Comment: This test is not yet approved or cleared by the [place] FDA. When there are no FDA-approved or cleared tests available, and other criteria are met, FDA can make tests available under an emergency access mechanism called an Emergency Use Authorization (EUA). The EUA for this test is supported by the Chemical Plant Technical Director of Health and Human Service's (HHS's) declaration [...] SARS-CoV-2. Performed By: #### A 1C #### [facility] [id number] Eddie Lerner PROF CHEM 8 (BAS METB)on Anion gap [Moles/Vol] 15.0 mmol/L Normal [facility] Comment on above: Performed By: #### R ENAL, LIPID, LIVER, TSH #### [facility] [address] [place], [place] [address] Dr. Eddie Lerner Calcium [Mass/Vol] 9.3 mg/dL Normal 8.5-10.1 [facility] Comment on above: Performed By: #### R ENAL, LIPID, LIVER, TSH #### [facility] [address] [address] [address] Eddie Lerner Chloride [Moles/Vol] 105 mmol/L Normal 98-107 [facility] Comment on above: Performed By: #### R ENAL, LIPID, LIVER, TSH #### [facility] [address] [place] [address] Dr. Eddie Lerner CO2 [Moles/Vol] 22.1 mmol/L Normal 21.0-32.0 [facility] Comment on above: Performed By: #### R ENAL, LIPID, LIVER, TSH #### [facility] [address] [place] [address] Dr. Eddie Lerner Creatinine [Mass/Vol] 2.29 mg/dL Critically high 0.70-1.30 [facility] Comment on above: Performed By: #### R ENAL, LIPID, LIVER, TSH #### [facility] [address] [place] [address] Dr. Eddie Lerner EGFR-AF [place] 35 mL/min/1.73m2 Critically low >=60 [facility] Comment on above: Performed By: #### R ENAL, LIPID, LIVER, TSH #### [facility] [address] [place] [address] Dr. Eddie Lerner EGFR-NON AF [place] 29 mL/min/1.73m2 Critically low >=60 [facility] Comment on above: Performed By: #### R ENAL, LIPID, LIVER, TSH #### [facility] [address] [place] [address] Dr. Eddie Lerner Glucose [Mass/Vol] 115 mg/dL Critically high 74-106 [facility] Comment on above: Performed By: #### R ENAL, LIPID, LIVER, TSH #### [facility] [address] [place] [address] Dr. Eddie Lerner Potassium [Moles/Vol] 5.1 mmol/L Normal 3.5-5.1 [facility] Comment on above: Performed By: #### R ENAL, LIPID, LIVER, TSH #### [facility] [address] [address] [address] Eddie Lerner Sodium [Moles/Vol] 137 mmol/L Normal 136-145 [facility] Comment on above: Performed By: #### R ENAL, LIPID, LIVER, TSH #### [facility] [address] [address] [address] Eddie Lerner Urea nitrogen [Mass/Vol] 26.0 mg/dL Critically high 7.0-18.0 [facility] Comment on above: Performed By: #### R ENAL, LIPID, LIVER, TSH #### [facility] [address] [address] [address] Eddie Lerner Urea nitrogen/Creatinine [Mass ratio] 11.4 mg/mg Normal [facility] Comment on above: Performed By: #### R ENAL, LIPID, LIVER, TSH #### [facility] [address] [address] [address] Eddie Lerner TISSUE CULTUREon 01-08-2022 Anaerobic Culture, Extended Incubation Final report Normal [facility] Comment on above: Performed By: #### C XTISSU ####[facility] [address] [address]DrVaishali Lerner Result 1 Comment Normal [facility] Comment on above: Result Comment: Diph theroids, not Corynebacterium jeikeium Light growth Susceptibility not normally performed on this organism. Performed By: #### C XTISSU ####[facility] [address] [address]Dr[address]ishali Lerner Result Comment: No a naerobes recovered. Tissue Culture Final report Abnormal [facility] Comment on above: Performed By: #### C XTISSU ####[facility] [address] [address] Eddie Lerner POINT OF CARE GLUCOSEon 08-2 Glucose [Mass/Vol] 89 mg/dL Normal 74-106 [facility] Comment on above: Performed By: #### R ENAL, LIPID, LIVER, TSH #### [facility] [address] [address] [address] Eddie Lerner Glucose [Mass/Vol] 85 mg/dL Normal 74-106 [facility] Comment on above: Performed By: #### P OCGLUC ####[facility] [address] [address]Dr. Eddie Lerner GRAM STAINon 12-21-2021 COMMENTS NO ORGANISMS OBSERVED Normal [facility] Comment on above: Performed By: #### R ENAL, LIPID, LIVER, TSH #### [facility] [address] [address] [address] Eddie Lerner DIPHTHEROIDS Normal [facility] Comment on above: Performed By: #### R ENAL, LIPID, LIVER, TSH #### [facility] [address] [address] [address] Eddie Lerner EPITHELIALS Normal [facility] Comment on above: Performed By: #### R ENAL, LIPID, LIVER, TSH #### [facility] [address] [address] [address] Eddie Lerner FUNGAL ELEMENTS Normal [facility] Comment on above: Performed By: #### R ENAL, LIPID, LIVER, TSH #### [facility] [address] [address] [address] Eddie Lerner GRAM NEG BACILLI Normal [facility] Comment on above: Performed By: #### R ENAL, LIPID, LIVER, TSH #### [facility] [address] [address] [address] Eddie PRINGLE NEG DIPPLOCOCCI Normal [facility] Comment on above: Performed By: #### R ENAL, LIPID, LIVER, TSH #### [facility] [address] [address] [address] Eddie Lerner GRAM POS BACILLI Normal [facility] Comment on above: Performed By: #### R ENAL, LIPID, LIVER, TSH #### [facility] [address] [address] [address] Eddie Lerner GRAM POSITIVE COCCI Normal [facility] Comment on above: Performed By: #### R ENAL, LIPID, LIVER, TSH #### [facility] [address] [address] [address] Eddie Lerner GRAM STAIN SOURCE Lt 1st Metatarsal Bone Normal [facility] Comment on above: Performed By: #### R ENAL, LIPID, LIVER, TSH #### [facility] [address] [address] [address] Eddie Lerner GS_DIPTH Normal [facility] Comment on above: Performed By: #### R ENAL, LIPID, LIVER, TSH #### [facility] [address] [address] [address] Eddie Lerner WBC RARE Normal [facility] Comment on above: Performed By: #### R ENAL, LIPID, LIVER, TSH #### [facility] [address] [address] [address] Eddie Lerner POINT OF CARE GLUCOSEon 11-28 Glucose [Mass/Vol] 148 mg/dL Critically high 74-106 [facility] Comment on above: Performed By: #### A 1C #### [facility] [address] [address] [address] Eddie Lerner Glucose [Mass/Vol] 100 mg/dL Normal 74-106 [facility] Comment on above: Performed By: #### P OCGLUC ####[facility] [address] [address]Dr. Eddie Lerner Glucose [Mass/Vol] 85 mg/dL Normal 74-106 [facility] Comment on above: Performed By: #### P OCGLUC ####[facility] [address] [address]Dr. Eddie Lerner Glucose [Mass/Vol] 83 mg/dL Normal 74-106 [facility] Comment on above: Performed By: #### R ENAL, LIPID, LIVER, TSH #### [facility] [address] [address] [address] Eddie Lerner Covid-19 PCR (CVDTB)on 11-28 SARS-CoV-2 (COVID-19) RNA SUDHA+probe Ql (Unsp spec) Not detected Normal NOT DETECTED [facility] Comment on above: Result Comment: This test is not yet approved or cleared by the [place] FDA. When there are no FDA-approved or cleared tests available, and other criteria are met, FDA can make tests available under an emergency access mechanism called an Emergency Use Authorization (EUA). The EUA for this test is supported by the Chemical Plant Technical Director of Health and Human Service's (HHS's) declaration [...] with SARS-CoV-2. Performed By: #### C VDTBH ####[facility] [address] [address]Dr[address] Eddie Lerner PROF CHEM 8 (BAS METB)on Anion gap [Moles/Vol] 11.5 mmol/L Normal [facility] Comment on above: Performed By: #### R ENAL, LIPID, LIVER, TSH #### [facility] [address] [address] [address] Eddie Lerner Calcium [Mass/Vol] 9.0 mg/dL Normal 8.5-10.1 [facility] Comment on above: Performed By: #### R ENAL, LIPID, LIVER, TSH #### [facility] [address] [address] [address] Eddie Lerner Chloride [Moles/Vol] 102 mmol/L Normal 98-107 [facility] Comment on above: Performed By: #### R ENAL, LIPID, LIVER, TSH #### [facility] [address] [address] [address] Eddie Lerner CO2 [Moles/Vol] 24.8 mmol/L Normal 21.0-32.0 [facility] Comment on above: Performed By: #### R ENAL, LIPID, LIVER, TSH #### [facility] [address] [address] [address] Eddie Lerner Creatinine [Mass/Vol] 2.19 mg/dL Critically high 0.70-1.30 [facility] Comment on above: Performed By: #### R ENAL, LIPID, LIVER, TSH #### [facility] [address] [address] [address] Eddie Lerner EGFR-AF [place] 37 mL/min/1.73m2 Critically low >=60 [facility] Comment on above: Performed By: #### R ENAL, LIPID, LIVER, TSH #### [facility] [address] [address] [address] Eddie Lerner EGFR-NON AF [place] 31 mL/min/1.73m2 Critically low >=60 [facility] Comment on above: Performed By: #### R ENAL, LIPID, LIVER, TSH #### [facility] [address] [place] [address] Dr. Eddie Lerner Glucose [Mass/Vol] 330 mg/dL Critically high 74-106 [facility] Comment on above: Performed By: #### R ENAL, LIPID, LIVER, TSH #### [facility] [address] [address] [address] Eddie Lerner Potassium [Moles/Vol] 5.3 mmol/L Critically high 3.5-5.1 [facility] Comment on above: Performed By: #### R ENAL, LIPID, LIVER, TSH #### [facility] [address] [address] [address] Eddie Lerner Sodium [Moles/Vol] 133 mmol/L Critically low 136-[address] [facility] Comment on above: Performed By: #### R ENAL, LIPID, LIVER, TSH #### [facility] [address] [place] [address] Dr. Eddie Lerner Urea nitrogen [Mass/Vol] 25.0 mg/dL Critically high 7.0-18.0 [facility] Comment on above: Performed By: #### R ENAL, LIPID, LIVER, TSH #### [facility] [address] [place] [address] Dr. Eddie Lerner Urea nitrogen/Creatinine [Mass ratio] 11.4 mg/mg Normal [facility] Comment on above: Performed By: #### R ENAL, LIPID, LIVER, TSH #### [facility] [address] [place], [place] [address] Dr. Eddie Lerner Comprehensive Metabolic Pane babatunde 08-01-2021 Albumin [Mass/Vol] 2.8 g/dL Low 3.2-5.5 [facility] Comment on above: Order Comment: REDRA W FOR SHORT DRAW AND HEMOLYSIS Performed By: #### P P #### [facility] [address] Albumin/Globulin [Mass ratio] 0.7 {ratio} Normal [facility] Comment on above: Order Comment: REDRA W FOR SHORT DRAW AND HEMOLYSIS Performed By: #### P P #### [facility] [address] [id number] [place] ALP [Catalytic activity/Vol] 87 U/L Normal 32-92 [facility] Comment on above: Order Comment: REDRA W FOR SHORT DRAW AND HEMOLYSIS Performed By: #### P P #### [facility] [address] [id number] [place] ALT [Catalytic activity/Vol] 18 U/L Normal 10-60 [facility] Comment on above: Order Comment: REDRA W FOR SHORT DRAW AND HEMOLYSIS Performed By: #### P P #### [facility] [address] [place], [place] [address] [place] AST [Catalytic activity/Vol] 20 U/L Normal 10-42 [facility] Comment on above: Order Comment: REDRA W FOR SHORT DRAW AND HEMOLYSIS Performed By: #### P P #### [facility] [address] [id number] [place] Bilirubin [Mass/Vol] 0.6 mg/dL Normal 0.3-1.2 [facility] Comment on above: Order Comment: REDRA W FOR SHORT DRAW AND HEMOLYSIS Performed By: #### P P #### [facility] [address] [id number] [place] Calcium [Mass/Vol] 8.9 mg/dL Normal 8.2-10.2 [facility] Comment on above: Order Comment: REDRA W FOR SHORT DRAW AND HEMOLYSIS Performed By: #### P P #### [address] Chloride [Moles/Vol] 103 mmol/L Normal 95-114 [facility] Comment on above: Order Comment: REDRA W FOR SHORT DRAW AND HEMOLYSIS Performed By: #### P P #### [address] CO2 [Moles/Vol] 24.7 mmol/L Normal 22.0-30.0 [facility] Comment on above: Order Comment: REDRA W FOR SHORT DRAW AND HEMOLYSIS Performed By: #### P P #### [address] Creatinine [Mass/Vol] 2.34 mg/dL High 0.64-1.27 [facility] Comment on above: Order Comment: REDRA W FOR SHORT DRAW AND HEMOLYSIS Performed By: #### P P #### [address] Estimated GFR ( Camilla 34 [facility] Comment on above: Order Comment: REDRA W FOR SHORT DRAW AND HEMOLYSIS Result Comment: GFR estimated reference range: According to KDOQI guidelines, <60 ml/min/1.73m2 is sufficient to diagnose a patient with chronic kidney disease. Performed By: #### P P #### [address] Estimated GFR (Non- Am 28 [facility] Comment on above: Order Comment: REDRA W FOR SHORT DRAW AND HEMOLYSIS Performed By: #### P P #### [place] [address] [place] Globulin (S) [Mass/Vol] 3.9 g/dL [facility] Comment on above: Order Comment: REDRA W FOR SHORT DRAW AND HEMOLYSIS Performed By: #### P P #### [address] Glucose [Mass/Vol] 171 mg/dL High 70-100 [facility] Comment on above: Order Comment: REDRA W FOR SHORT DRAW AND HEMOLYSIS Result Comment: Center Glucose Reference Range is dependent on time and content of last meal. Glucose of more than 200 mg/dL in a nonstressed, ambulatory subject supports the diagnosis of Diabetes Mellitus. ADA recommended reference range Performed By: #### P P #### [address] Potassium [Moles/Vol] 4.0 mmol/L Normal 3.5-5.1 [facility] Comment on above: Order Comment: REDRA W FOR SHORT DRAW AND HEMOLYSIS Performed By: #### P P #### [address] Protein [Mass/Vol] 6.7 g/dL Normal 6.1-7.9 [facility] Comment on above: Order Comment: REDRA W FOR SHORT DRAW AND HEMOLYSIS Performed By: #### P P #### [address] Sodium [Moles/Vol] 138 mmol/L Normal 136-146 [facility] Comment on above: Order Comment: REDRA W FOR SHORT DRAW AND HEMOLYSIS Performed By: #### P P #### [address] Urea nitrogen [Mass/Vol] 18 mg/dL Normal 9-23 [facility] Comment on above: Order Comment: REDRA W FOR SHORT DRAW AND HEMOLYSIS Performed By: #### P P #### [address] Ferritinon 08-01-2021 Ferritin [Mass/Vol] 151.9 ng/mL Normal 23.9-336.[address] [facility] Comment on above: Order Comment: Reaso n for Exam CKD (chronic kidney disease) stage 4, GFR 15-29 ml/min;Diabe Performed By: #### C MP, CBC, MG, TROP, BNP #### [address] [address] Hemogram CBC Without Diffon 08-01-2021 Erythrocyte distribution width (RBC) [Ratio] 15.9 % High 12.0-14.8 [facility] Comment on above: Order Comment: REDRA W FOR SHORT DRAW AND HEMOLYSIS Performed By: #### P P #### [address] Hematocrit (Bld) [Volume fraction] 38.9 % Normal 38.8-50.0 [facility] Comment on above: Order Comment: REDRA W FOR SHORT DRAW AND HEMOLYSIS Performed By: #### P P #### [address] Hemoglobin (Bld) [Mass/Vol] 12.9 g/dL Low 13.0-17.0 [facility] Comment on above: Order Comment: REDRA W FOR SHORT DRAW AND HEMOLYSIS Performed By: #### P P #### [address] MCH (RBC) [Entitic mass] 28.4 pg Normal 27.5-35.2 [facility] Comment on above: Order Comment: REDRA W FOR SHORT DRAW AND HEMOLYSIS Performed By: #### P P #### [address] MCV (RBC) [Entitic vol] 85.7 fL Normal 83.5-101 [facility] Comment on above: Order Comment: REDRA W FOR SHORT DRAW AND HEMOLYSIS Performed By: #### P P #### [address] Mean Corpuscular HGB Conc 33.1 g/dL Normal 32.5-35.6 [facility] Comment on above: Order Comment: REDRA W FOR SHORT DRAW AND HEMOLYSIS Performed By: #### P P #### [address] Platelet mean volume (Bld) [Entitic vol] 7.8 fL Normal 6.6-10.1 [facility] Comment on above: Order Comment: REDRA W FOR SHORT DRAW AND HEMOLYSIS Result Comment: PERF ORMED BY: [place] [address] PATHOLOGIST STAFFING ASSOCIATE JORDAN RODRIGUEZ M.D. Performed By: #### P P #### [address] Platelets (Bld) [#/Vol] 352 10*3/uL Normal 150-450 [facility] Comment on above: Order Comment: REDRA W FOR SHORT DRAW AND HEMOLYSIS Performed By: #### P P #### [address] RBC (Bld) [#/Vol] 4.54 10*6/uL Normal 3.90-5.60 [facility] Comment on above: Order Comment: REDRA W FOR SHORT DRAW AND HEMOLYSIS Performed By: #### P P #### [address] WBC (Bld) [#/Vol] 9.1 10*3/uL Normal 4.1-10.5 [facility] Comment on above: Order Comment: REDRA W FOR SHORT DRAW AND HEMOLYSIS Performed By: #### P P #### [address] Iron and TIBC Profileon 04-0 5-2022 % Iron Saturation 24.0 % Normal 20-50 [facility] Comment on above: Order Comment: REDRA W FOR SHORT DRAW AND HEMOLYSIS Performed By: #### P P #### [address] Iron [Mass/Vol] 47 ug/dL Normal 40-160 [facility] Comment on above: Order Comment: REDRA W FOR SHORT DRAW AND HEMOLYSIS Performed By: #### P P #### [address] Total Iron Binding Capacity 192 ug/dL Low 255-450 [facility] Comment on above: Order Comment: REDRA W FOR SHORT DRAW AND HEMOLYSIS Performed By: #### P P #### [address] Transferrin [Mass/Vol] 137 mg/dL Low 180-380 [facility] Comment on above: Order Comment: REDRA W FOR SHORT DRAW AND HEMOLYSIS Performed By: #### P P #### [address] Magnesiumon 08-01-2021 Magnesium [Mass/Vol] 2.2 mg/dL Normal 1.6-2.6 [facility] Comment on above: Order Comment: REDRA W FOR SHORT DRAW AND HEMOLYSIS Performed By: #### P P #### [address] Parathyroid Hormone Intacton 08-01-2021 Parathyroid Hormone Intact 31.2 pg/mL Normal 12-88 [facility] Comment on above: Order Comment: Reaso n for Exam CKD (chronic kidney disease) stage 4, GFR 15-29 ml/min;Diabe Result Comment: PERF ORMED BY: [place] [address] PATHOLOGIST STAFFING ASSOCIATE JORDAN RODRIGUEZ M.D. Performed By: #### C MP, CBC, MG, TROP, BNP #### [address] Uric Acidon 08-01-2021 Urate [Mass/Vol] 8.4 mg/dL High 2.6-7.2 [facility] Comment on above: Order Comment: REDRA W FOR SHORT DRAW AND HEMOLYSIS Performed By: #### P P #### [address] Vitamin D 25 Hydroxy Totalon 08-01-2021 Vitamin D 25 Hydroxy Total 28.2 ng/mL Low 30-100 [facility] Comment on above: Order Comment: Reaso n [...] C MP, CBC, MG, TROP, BNP #### [address] Complete Pulmonary Functiono n 09-28-2020 Complete Pulmonary Function [facility] [place] [address] [place] [id number] Pulmonary Function Signed Patient: Rashard Lyman MR#: [id number] : 1960 Acct:[id number] Age/Sex: 60 / M ADM Date: 09/28/20 Loc: RT Room: Type: [facility] Attending Dr: USMAN Stover APRN [...] to 2.21 L or 50% predicted. The ZNL91-82% is reduced at 1.92 L/sec or 54% predicted. After administration of bronchodilators, there is an insignificant 5% improvement in the forced vital capacity and 5% improvement in the FEV1. The WOJ60-55% improves insignificantly by 10%. LUNG VOLUMES: Lung [...] adequate pulmonary function studies reveal evidence of enqt-yk-zbypxous restriction without clear evidence of obstruction nor [...] MD 09/28/20 1305 Signed By: 09/28/20 1505 [facility] echo limited [facility] echo [facility] [place] [address] Echocardiogram Signed Patient: Rashard Lyman MR#: [id number] : 1960 Acct:[id number] Age/Sex: 60 / M ADM Date: 09/06/20 Loc: Room: Type: [facility] Attending Dr: Gautam Bazan MD Ordering Provider: Gautam Bazan MD Date of Service: 09/06/20 [facility] echo limited: re assess pericardial effusions Copies to: Nancy Jackson MD, [facility] Gautam Bazan MD Weight: 354 lb Performed By: Mariana Kou KWAKU BSA: 2.8 m2 HR: 100 Reason [...] 57.4 ml EF(Teich): 51.3 % Transcribed By: [facility] 09/06/20 162 Dictated By: Nancy Jackson MD, FACC 09/06/20 1232 Signed By: 09/06/201625 [facility] Albumin [Mass/volume] in Ser um or Plasmaon 08-25-2020 Albumin [Mass/Vol] 2.0 g/dL 3.2-5.5 [facility] Basophils Auto (Bld) [#/Vol] on 08-25-2020 Basophils (Bld) [#/Vol] 0.0 10*3/uL 0.0-0.2 [facility] Basophils/100 WBC Auto (Bld) on 08-25-2020 Basophils/100 WBC (Bld) 0.1 % [facility] Blood anisocytosis detection on 08-25-2020 Anisocytosis Ql (Bld) Slight [facility] Blood hemoglobin measurement (mass/volume)on 08-25-2020 Hemoglobin (Bld) [Mass/Vol] 10.1 g/dL 13.0-17.0 [facility] Blood leukocytes automated c ount (number/volume)on 08-25-2020 WBC (Bld) [#/Vol] 12.6 10*3/uL 4.5-11.0 [facility] Blood polychromasia detectio n by light microscopyon 08-25-2020 Polychromasia LM Ql (Bld) Slight [facility] Creatinine and Glomerular fi ltration rate.predicted panel (S/P/Bld)on 08-25-2020 Creatinine [Mass/Vol] 4.06 mg/dL 0.64-1.27 [facility] ECG 12 lead ECGon 08-25-2020 ECG 12 lead ECG [facility] [place] [address] Electrocardiograph Report Signed Patient: Rashard Lyman MR#: [id number] : 1960 Acct:[id number] Age/Sex: 60 / M ADM Date: 08/18/20 Loc: Room: [address] [place] [address] Type: ADM IN Attending Dr: Gordon Ewing [...] 08/25/20 0719 Signed By: 08/25/20 0951 Normal [facility] Eosinophils Auto (Bld) [#/Vo l]on 08-25-2020 Eosinophils (Bld) [#/Vol] 0.0 10*3/uL 0.0-0.45 [facility] Eosinophils/100 WBC Auto (Bl d)on 08-25-2020 Eosinophils/100 WBC (Bld) 0.1 % [facility] Erythrocyte distribution wid th Auto (RBC) [Ratio]on 08-25-2020 Erythrocyte distribution width (RBC) [Ratio] 16.6 % 12.0-14.8 [facility] Estimated glomerular filtrat ion rate (GFR) non- Americanon 08-25-2020 GFR/1.73 sq M.predicted among non-blacks MDRD (S/P/Bld) [Vol rate/Area] 15 mL/Min [facility] Glucose Glucometer (BldC) [M ass/Vol]on 08-25-2020 Glucose [Mass/Vol] 122 mg/dL [facility] Comment on above: Random Glucose Refer ence Range is dependent on time and content of last meal. Glucose of more than 200 mg/dL in a nonstressed, ambulatory subject supports the diagnosis of Diabetes Mellitus. Glucose Poct Glucometerson 0 08-25-2020 Commemt1 Glu2: Cleaned Meter Normal [facility] Comment on above: Result Comment: PERF ORMED BY: [place] [address] PATHOLOGIST STAFFING ASSOCIATE JORDAN RODRIGUEZ M.D. Performed By: #### P P #### [address] Glucose [Mass/Vol] 122 mg/dL Normal [facility] Comment on above: Result Comment: Center om Glucose Reference Range is dependent on time and content of last meal. Glucose of more than 200 mg/dL in a nonstressed, ambulatory subject supports the diagnosis of Diabetes Mellitus. Performed By: #### P P #### [address] Commemt1 Glu2: Cleaned Meter Normal [facility] Comment on above: Result Comment: PERF ORMED BY: [place] [address] PATHOLOGIST STAFFING ASSOCIATE JORDAN RODRIGUEZ M.D. Performed By: #### V BG #### Point of Care testing , Glucose [Mass/Vol] 104 mg/dL Normal [facility] Comment on above: Result Comment: Center om Glucose Reference Range is dependent on time and content of last meal. Glucose of more than 200 mg/dL in a nonstressed, ambulatory subject supports the diagnosis of Diabetes Mellitus. Performed By: #### V BG #### Point of Care testing , Glucose [Mass/Vol] 115 mg/dL Normal [facility] Comment on above: Result Comment: Center om Glucose Reference Range is dependent on time and content of last meal. Glucose of more than 200 mg/dL in a nonstressed, ambulatory subject supports the diagnosis of Diabetes Mellitus. PERFORMED BY: [place] [address] PATHOLOGIST STAFFING ASSOCIATE JORDAN RODRIGUEZ M.D. Performed By: #### V BG #### Point of Care testing , Hematocrit Auto (Bld) [Volum e fraction]on 08-25-2020 Hematocrit (Bld) [Volume fraction] 31.7 % 38.8-50.0 [facility] Laboratory - Hematology and Cell countson 08-25-2020 Nucleated RBC/100 WBC (Bld) [Ratio] 0.2 % 0-0.5 [facility] Lymphocytes Auto (Bld) [#/Vo l]on 08-25-2020 Lymphocytes (Bld) [#/Vol] 1.1 10*3/uL 1.00-4.8 [facility] Lymphocytes/100 WBC Auto (Bl d)on 08-25-2020 Lymphocytes/100 WBC (Bld) 8.9 % [facility] MCH Auto (RBC) [Entitic mass ]on 08-25-2020 MCH (RBC) [Entitic mass] 26.2 pg 27.5-35.2 [facility] MCHC Auto (RBC) [Mass/Vol]on 08-25-2020 MCHC (RBC) [Mass/Vol] 31.9 g/dL 32.5-35.6 [facility] MCV Auto (RBC) [Entitic vol] on 08-25-2020 MCV (RBC) [Entitic vol] 82.3 fL 83.5-101 [facility] Monocytes Auto (Bld) [#/Vol] on 08-25-2020 Monocytes (Bld) [#/Vol] 1.2 10*3/uL 0.0-0.8 [facility] Monocytes/100 WBC Auto (Bld) on 08-25-2020 Monocytes/100 WBC (Bld) 9.6 % [facility] Neutrophils Auto (Bld) [#/Vo l]on 08-25-2020 Neutrophils (Bld) [#/Vol] 10.2 10*3/uL 1.8-7.7 [facility] Neutrophils/100 WBC Auto (Bl d)on 08-25-2020 Neutrophils/100 WBC (Bld) 81.3 % [facility] No Panel Informationon 08-25 Bedside Glucose Comment Glu2: cleaned meter [facility] Estimated GFR () 18 mL/Min [facility] Comment on above: GFR estimated refere nce range: According to KDOQI guidelines, <60 ml/min/1.73m2 is sufficient to diagnose a patient with chronic kidney disease. Pharmacy Creatinine Clearance (Chem 31.84 [facility] Platelet Estimate Normal Normal [facility] Platelet Morphology Comment Normal Normal [facility] Phosphate [Mass/volume] in S miki or Plasmaon 08-25-2020 Phosphate [Mass/Vol] 5.3 mg/dL 2.5-4.6 [facility] Platelet mean volume Auto (B ld) [Entitic vol]on 08-25-2020 Platelet mean volume (Bld) [Entitic vol] 7.1 fL 6.6-10.1 [facility] Platelets Auto (Bld) [#/Vol] on 08-25-2020 Platelets (Bld) [#/Vol] 388 10*3/uL 150-450 [facility] RBC Auto (Bld) [#/Vol]on RBC (Bld) [#/Vol] 3.85 10*6/uL 3.90-5.60 [facility] RBC morphologyon 08-25-2020 RBC morphology finding Nom (Bld) N/A [facility] Renal Function Panelon 08-25 Albumin [Mass/Vol] 2.0 g/dL Low 3.2-5.5 [facility] Comment on above: Performed By: #### V BG #### Point of Care testing , Calcium [Mass/Vol] 8.7 mg/dL Normal 8.2-10.2 [facility] Comment on above: Performed By: #### V BG #### Point of Care testing , Chloride [Moles/Vol] 99 mmol/L Normal 95-114 [facility] Comment on above: Performed By: #### V BG #### Point of Care testing , CO2 [Moles/Vol] 26.2 mmol/L Normal 22.0-30.0 [facility] Comment on above: Performed By: #### V BG #### Point of Care testing , Creatinine [Mass/Vol] 4.06 mg/dL High 0.64-1.27 [facility] Comment on above: Performed By: #### V BG #### Point of Care testing , Creatinine Clr Calc Pharmacy 31.84 [facility] Comment on above: Result Comment: PERF ORMED BY: [facility] [address] [place] [address] PATHOLOGIST STAFFING ASSOCIATE JORDAN RODRIGUEZ M.D. Performed By: #### V BG #### Point of Care testing , Estimated GFR ( Camilla 18 Normal [facility] Comment on above: Result Comment: GFR estimated reference range: According to KDOQI guidelines, <60 ml/min/1.73m2 is sufficient to diagnose a patient with chronic kidney disease. Performed By: #### V BG #### Point of Care testing , Estimated GFR (Non- Am 15 Normal [facility] Comment on above: Performed By: #### V BG #### Point of Care testing , Glucose [Mass/Vol] 113 mg/dL High 70-100 [facility] Comment on above: Result Comment: Center Glucose Reference Range is dependent on time and content of last meal. Glucose of more than 200 mg/dL in a nonstressed, ambulatory subject supports the diagnosis of Diabetes Mellitus. ADA recommended reference range Performed By: #### V BG #### Point of Care testing , Phosphate [Mass/Vol] 5.3 mg/dL High 2.5-4.6 [facility] Comment on above: Performed By: #### V BG #### Point of Care testing , Potassium [Moles/Vol] 4.6 mmol/L Normal 3.5-5.1 [facility] Comment on above: Performed By: #### V BG #### Point of Care testing , Sodium [Moles/Vol] 135 mmol/L Low 136-146 [facility] Comment on above: Performed By: #### V BG #### Point of Care testing , Urea nitrogen [Mass/Vol] 75 mg/dL High 9-23 [facility] Comment on above: Performed By: #### V BG #### Point of Care testing , Scan and CBCon 08-25-2020 Anisocytosis Ql (Bld) Slight Normal [facility] Comment on above: Performed By: #### V BG #### Point of Care testing , Basophils (Bld) [#/Vol] 0.0 10*3/uL Normal 0.0-0.2 [facility] Comment on above: Performed By: #### V BG #### Point of Care testing , Basophils/100 WBC (Bld) 0.1 % Normal . [facility] Comment on above: Performed By: #### V BG #### Point of Care testing , Eosinophils (Bld) [#/Vol] 0.0 10*3/uL Normal 0.0-0.45 [facility] Comment on above: Performed By: #### V BG #### Point of Care testing , Eosinophils/100 WBC (Bld) 0.1 % Normal . [facility] Comment on above: Performed By: #### V BG #### Point of Care testing , Erythrocyte distribution width (RBC) [Ratio] 16.6 % High 12.0-14.8 [facility] Comment on above: Performed By: #### V BG #### Point of Care testing , Hematocrit (Bld) [Volume fraction] 31.7 % Low 38.8-50.0 [facility] Comment on above: Performed By: #### V BG #### Point of Care testing , Hemoglobin (Bld) [Mass/Vol] 10.1 g/dL Low 13.0-17.0 [facility] Comment on above: Performed By: #### V BG #### Point of Care testing , Lymphocytes (Bld) [#/Vol] 1.1 10*3/uL Normal 1.00-4.8 [facility] Comment on above: Performed By: #### V BG #### Point of Care testing , Lymphocytes/100 WBC (Bld) 8.9 % Normal . [facility] Comment on above: Performed By: #### V BG #### Point of Care testing , MCH (RBC) [Entitic mass] 26.2 pg Low 27.5-35.2 [facility] Comment on above: Performed By: #### V BG #### Point of Care testing , MCV (RBC) [Entitic vol] 82.3 fL Low 83.5-101 [facility] Comment on above: Performed By: #### V BG #### Point of Care testing , Mean Corpuscular HGB Conc 31.9 g/dL Low 32.5-35.6 [facility] Comment on above: Performed By: #### V BG #### Point of Care testing , Monocytes (Bld) [#/Vol] 1.2 10*3/uL High 0.0-0.8 [facility] Comment on above: Performed By: #### V BG #### Point of Care testing , Monocytes/100 WBC (Bld) 9.6 % Normal . [facility] Comment on above: Performed By: #### V BG #### Point of Care testing , Neutrophils (Bld) [#/Vol] 10.2 10*3/uL High 1.8-7.7 [facility] Comment on above: Performed By: #### V BG #### Point of Care testing , Neutrophils/100 WBC (Bld) 81.3 % Normal . [facility] Comment on above: Performed By: #### V BG #### Point of Care testing , Nucleated RBC/100 WBC (Bld) [Ratio] 0.2 % Normal 0-0.5 [facility] Comment on above: Performed By: #### V BG #### Point of Care testing , Platelet Estimate Normal Normal Normal [facility] Comment on above: Performed By: #### V BG #### Point of Care testing , Platelet mean volume (Bld) [Entitic vol] 7.1 fL Normal 6.6-10.1 [facility] Comment on above: Performed By: #### V BG #### Point of Care testing , Platelet Morphology Normal Normal Normal [facility] Comment on above: Result Comment: PERF ORMED BY: [facility] [address] [place] [address] PATHOLOGIST STAFFING ASSOCIATE JORDAN RODRIGUEZ M.D. Performed By: #### V BG #### Point of Care testing , Platelets (Bld) [#/Vol] 388 10*3/uL Normal 150-450 [facility] Comment on above: Performed By: #### V BG #### Point of Care testing , Polychromasia Slight Normal [facility] Comment on above: Performed By: #### V BG #### Point of Care testing , RBC (Bld) [#/Vol] 3.85 10*6/uL Low 3.90-5.60 [facility] Comment on above: Performed By: #### V BG #### Point of Care testing , WBC (Bld) [#/Vol] 12.6 10*3/uL High 4.5-11.0 [facility] Comment on above: Performed By: #### V BG #### Point of Care testing , Serum or plasma calcium joel urement (mass/volume)on 08-25-2020 Calcium [Mass/Vol] 8.7 mg/dL 8.2-10.2 [facility] Serum or plasma chloride faraz surement (moles/volume)on 08-25-2020 Chloride [Moles/Vol] 99 mmol/L 95-114 [facility] Serum or plasma glucose joel urement (mass/volume)on 08-25-2020 Glucose [Mass/Vol] 113 mg/dL 70-100 [facility] Comment on above: ADA recommended refe rence rangeRandom Glucose Reference Range is dependent on time and content of last meal. Glucose of more than 200 mg/dL in a nonstressed, ambulatory subject supports the diagnosis of Diabetes Mellitus. Serum or plasma potassium me asurement (moles/volume)on 08-25-2020 Potassium [Moles/Vol] 4.6 mmol/L 3.5-5.1 [facility] Serum or plasma sodium measu rement (moles/volume)on 08-25-2020 Sodium [Moles/Vol] 135 mmol/L 136-146 [facility] Serum or plasma total carbon dioxide measurement (moles/volume)on 08-25-2020 CO2 [Moles/Vol] 26.2 mmol/L 22.0-30.0 [facility] Serum or plasma urea nitroge n measurement (mass/volume)on 08-25-2020 Urea nitrogen [Mass/Vol] 75 mg/dL 9 [facility] Diff and CBCon 08-24-2020 Anisocytosis Ql (Bld) Slight Normal [facility] Comment on above: Performed By: #### C OVID-19 LIAT SOFIANEG #### [facility] [address] Band form neutrophils/100 WBC (Bld) 1 % Normal 0-5 [facility] Comment on above: Performed By: #### C OVID-19 LIAT SOFIANEG #### [facility] [address] [place] [address] [place] Basophilic stippling LM Ql (Bld) Slight Normal [facility] Comment on above: Performed By: #### C OVID-19 LIAT, SOFIANEG #### [facility] [address] [place] [address] Erythrocyte distribution width (RBC) [Ratio] 16.6 % High 12.0-14.8 [facility] Comment on above: Performed By: #### C OVID-19 LIAT, SOFIANEG #### [address] Hematocrit (Bld) [Volume fraction] 30.0 % Low 38.8-50.0 [facility] Comment on above: Performed By: #### C OVID-19 LIAT, SOFIANEG #### [address] Hemoglobin (Bld) [Mass/Vol] 10.1 g/dL Low 13.0-17.0 [facility] Comment on above: Performed By: #### C OVID-19 LIAT, SOFIANEG #### [address] Lymphocytes/100 WBC (Bld) 6 % Low 18-42 [facility] Comment on above: Performed By: #### C OVID-19 LIAT, SOFIANEG #### [address] MCH (RBC) [Entitic mass] 27.5 pg Normal 27.5-35.2 [facility] Comment on above: Performed By: #### C OVID-19 LIAT, SOFIANEG #### [facility] [address] [place] [address] MCV (RBC) [Entitic vol] 81.9 fL Low 83.5-101 [facility] Comment on above: Performed By: #### C OVID-19 LIAT, SOFIANEG #### [facility] [address] [place] [address] Mean Corpuscular HGB Conc 33.6 g/dL Normal 32.5-35.6 [facility] Comment on above: Performed By: #### C OVID-19 LIAT, SOFIANEG #### [facility] [address] [place] [address] [place] Metamyelocytes 1 % High 0-0 [facility] Comment on above: Performed By: #### C OVID-19 LIAT, SOFIANEG #### [facility] [address] [place] [address] [place] Monocytes/100 WBC (Bld) 4 % Normal 2-11 [facility] Comment on above: Performed By: #### C OVID-19 LIAT, SOFIANEG #### [facility] [address] [place] [address] Myelocytes 1 % High 0-0 [facility] Comment on above: Performed By: #### C OVID-19 LIAT, SOFIANEG #### [facility] [address] [place] [address] Nucleated RBC/100 WBC (Bld) [Ratio] 0.0 % Normal 0-0.5 [facility] Comment on above: Result Comment: PERF ORMED BY: [place] [address] PATHOLOGIST STAFFING ASSOCIATE JORDAN RODRIGUEZ M.D. Performed By: #### C OVID-19 LIAT, SOFIANEG #### [facility] [address] [place] [address] Platelet Estimate Normal Normal Normal [facility] Comment on above: Performed By: #### C OVID-19 LIAT, SOFIANEG #### [facility] [address] [place] [address] [place] Platelet mean volume (Bld) [Entitic vol] 7.0 fL Normal 6.6-10.1 [facility] Comment on above: Performed By: #### C OVID-19 LIAT, SOFIANEG #### [facility] [address] [place] [address] [place] Platelet Morphology Normal Normal Normal [facility] Comment on above: Result Comment: PERF ORMED BY: [place] [address] PATHOLOGIST STAFFING ASSOCIATE JIANLAN SUN M.D. Performed By: #### C OVID-19 LIAT, SOFIANEG #### [facility] [address] [place] [address] [place] Platelets (Bld) [#/Vol] 359 10*3/uL Normal 150-450 [facility] Comment on above: Performed By: #### C OVID-19 LIAT, SOFIANEG #### [facility] [address] [place] [address] [place] Polychromasia Slight Normal [facility] Comment on above: Performed By: #### C OVID-19 LIAT, SOFIANEG #### [facility] [address] RBC (Bld) [#/Vol] 3.66 10*6/uL Low 3.90-5.60 [facility] Comment on above: Performed By: #### C OVID-19 LIAT, SOFIANEG #### [facility] [address] [place] [address] [place] Rouleaux Slight Normal [facility] Comment on above: Performed By: #### C OVID-19 LIAT, SOFIANEG #### [facility] [address] [place] [address] Segmented neutrophils/100 WBC (Bld) 87 % High 50-70 [facility] Comment on above: Performed By: #### C OVID-19 LIAT, SOFIANEG #### [facility] [address] [place] [address] [place] WBC (Bld) [#/Vol] 11.2 10*3/uL High 4.5-11.0 [facility] Comment on above: Performed By: #### C OVID-19 LIAT, SOFIANEG #### [facility] [address] [place] [address] ECG 12 lead ECGon 08-24-2020 ECG 12 lead ECG [facility] [address] [place] [address] [place] [address] Electrocardiograph Report Signed Patient: Rashard Lyman MR#: [id number] : 1960 Acct:[id number] Age/Sex: 60 / M ADM Date: 08/18/20 Loc: 3T Room: [address] [place] [address] Type: ADM IN Attending Dr: Gordon Ewing [...] MD 08/24/20 0743 Signed By: 08/24/20 1049 [facility] Erythrocyte basophilic stipp ling detectionon 08-24-2020 Basophilic stippling LM Ql (Bld) Slight [facility] Glucose Poct Glucometerson 0 08-24-2020 Glucose [Mass/Vol] 129 mg/dL [facility] Comment on above: Result Comment: Center Glucose Reference Range is dependent on time and content of last meal. Glucose of more than 200 mg/dL in a nonstressed, ambulatory subject supports the diagnosis of Diabetes Mellitus. PERFORMED BY: [address] [place] [address] PATHOLOGIST STAFFING ASSOCIATE JORDAN RODRIGUEZ M.D. Performed By: #### V BG #### Point of Care testing , Commemt1 Glu2: Cleaned Meter Normal [facility] Comment on above: Result Comment: PERF ORMED BY: [address] [place] [address] PATHOLOGIST STAFFING ASSOCIATE JORDAN RODRIGUEZ M.D. Performed By: #### V BG #### Point of Care testing , Glucose [Mass/Vol] 108 mg/dL Normal [facility] Comment on above: Result Comment: Center Glucose Reference Range is dependent on time and content of last meal. Glucose of more than 200 mg/dL in a nonstressed, ambulatory subject supports the diagnosis of Diabetes Mellitus. Performed By: #### V BG #### Point of Care testing , Glucose [Mass/Vol] 60 mg/dL Off scale low [facility] Comment on above: Result Comment: Center Glucose Reference Range is dependent on time and content of last meal. Glucose of more than 200 mg/dL in a nonstressed, ambulatory subject supports the diagnosis of Diabetes Mellitus. PERFORMED BY: [place] [address] PATHOLOGIST STAFFING ASSOCIATE JORDAN RODRIGUEZ M.D. Performed By: #### V BG #### Point of Care testing , Glucose [Mass/Vol] 130 mg/dL Normal [facility] Comment on above: Result Comment: [facility] Glucose Reference Range is dependent on time and content of last meal. Glucose of more than 200 mg/dL in a nonstressed, ambulatory subject supports the diagnosis of Diabetes Mellitus. PERFORMED BY: [place] [address] PATHOLOGIST STAFFING ASSOCIATE JORDAN RODRIGUEZ M.D. Performed By: #### V BG #### Point of Care testing , Glucose [Mass/Vol] 72 mg/dL Normal [facility] Comment on above: Result Comment: [facility] Glucose Reference Range is dependent on time and content of last meal. Glucose of more than 200 mg/dL in a nonstressed, ambulatory subject supports the diagnosis of Diabetes Mellitus. PERFORMED BY: [place] [phone] PATHOLOGIST STAFFING ASSOCIATE JORDAN RODRIGUEZ M.D. Performed By: #### C OVID-19 DELGADO JOSUE #### [address] Glucose [Mass/Vol] 96 mg/dL Normal [facility] Comment on above: Result Comment: Center Glucose Reference Range is dependent on time and content of last meal. Glucose of more than 200 mg/dL in a nonstressed, ambulatory subject supports the diagnosis of Diabetes Mellitus. PERFORMED BY: [place] [address] PATHOLOGIST STAFFING ASSOCIATE JORDAN RODRIGUEZ M.D. Performed By: #### C OVID-19 LIAT SOFIANEG #### [address] Laboratory - Hematology and Cell countson 08-24-2020 Band form neutrophils/100 WBC (Bld) 1 % 0-5 [facility] Lymphocytes/100 WBC Auto (Bl d)on 08-24-2020 Lymphocytes/100 WBC (Bld) 6 % 18-42 [facility] Metamyelocytes/100 WBC Manua l cnt (Bld)on 08-24-2020 Metamyelocytes/100 WBC (Bld) 1 % 0-0 [facility] Monocytes/100 WBC Manual cnt (Bld)on 08-24-2020 Monocytes/100 WBC (Bld) 4 % 2-11 [facility] Myelocytes/100 WBC Manual cn t (Bld)on 08-24-2020 Myelocytes/100 WBC (Bld) 1 % 0-0 [facility] No Panel Informationon 08-24 Rouleau Slight [facility] Renal Function Panelon 08-24 Albumin [Mass/Vol] 1.9 g/dL Low 3.2-5.5 [facility] Comment on above: Performed By: #### C OVID-19 LIAT SOFIANEG #### [address] Calcium [Mass/Vol] 8.8 mg/dL Normal 8.2-10.2 [facility] Comment on above: Performed By: #### C OVID-19 LIAT SOFIANEG #### [address] Chloride [Moles/Vol] 99 mmol/L Normal 95-114 [facility] Comment on above: Performed By: #### C OVID-19 LIAT SOFIANEG #### [address] [place] [address] [place] CO2 [Moles/Vol] 24.4 mmol/L Normal 22.0-30.0 [facility] Comment on above: Performed By: #### C OVID-19 LIAT, SOFIANEG #### [facility] [address] Creatinine [Mass/Vol] 4.21 mg/dL High 0.64-1.27 [facility] Comment on above: Performed By: #### C OVID-19 LIAT, SOFIANEG #### [facility] [address] [place] [address] [place] Creatinine Clr Calc Pharmacy 30.71 [facility] Comment on above: Result Comment: PERF ORMED BY: [place] [address] PATHOLOGIST STAFFING ASSOCIATE JORDAN RODRIGUEZ M.D. Performed By: #### C OVID-19 LIAT, SOFIANEG #### [address] Estimated GFR ( Camilla 18 [facility] Comment on above: Result Comment: GFR estimated reference range: According to KDOQI guidelines, <60 ml/min/1.73m2 is sufficient to diagnose a patient with chronic kidney disease. Performed By: #### C OVID-19 LIAT, SOFIANEG #### [facility] [address] [place] [address] Estimated GFR (Non- Am 15 [facility] Comment on above: Performed By: #### C OVID-19 LIAT, SOFIANEG #### [facility] [address] [place] [address] [place] Glucose [Mass/Vol] 79 mg/dL Normal 70-100 [facility] Comment on above: Result Comment: Center Glucose Reference Range is dependent on time and content of last meal. Glucose of more than 200 mg/dL in a nonstressed, ambulatory subject supports the diagnosis of Diabetes Mellitus. ADA recommended reference range Performed By: #### C OVID-19 LIAT, SOFIANEG #### [facility] [address] [place] [address] Phosphate [Mass/Vol] 5.9 mg/dL High 2.5-4.6 [facility] Comment on above: Performed By: #### C OVID-19 LIAT, SOFIANEG #### [facility] [address] Potassium [Moles/Vol] 4.2 mmol/L Normal 3.5-5.1 [facility] Comment on above: Performed By: #### C OVID-19 LIAT, SOFIANEG #### [facility] [address] Sodium [Moles/Vol] 134 mmol/L Low 136-146 [facility] Comment on above: Performed By: #### C OVID-19 LIAT, SOFIANEG #### [facility] [address] [place] [address] Urea nitrogen [Mass/Vol] 69 mg/dL High 9-23 [facility] Comment on above: Performed By: #### C OVID-19 LIAT, SOFIANEG #### [facility] [address] [place] [address] [place] Segmented neutrophils/100 WB C Manual cnt (Bld)on 08-24-2020 Segmented neutrophils/100 WBC (Bld) 87 % 50-70 [facility] [place] Antinuclear Antibodieson 08-23-2020 Antinuclear Abs, IFA Negative Normal . [facility] Comment on above: Result Comment: Nega tive <1:80 Borderline 1:80 Positive >1:80 Performed at: - [facility] [id number] [place] Drawer: Mata Brian PhD, Phone: [phone] PERFORMED BY: [place] [address] PATHOLOGIST STAFFING ASSOCIATE JORDAN RODRIGUEZ M.D. Performed By: #### P P #### [address] Complete Blood Count Auto Di ffon 08-23-2020 Basophils (Bld) [#/Vol] 0.0 10*3/uL Normal 0.0-0.2 [facility] Comment on above: Result Comment: PERF ORMED BY: [place] [address] PATHOLOGIST STAFFING ASSOCIATE JORDAN RODRIGUEZ M.D. Performed By: #### C OVID-19 LIAT, SOFIANEG #### [facility] [address] [place] [address] Basophils/100 WBC (Bld) 0.3 % Normal . [facility] Comment on above: Performed By: #### C OVID-19 LIAT, SOFIANEG #### [facility] [address] [place] [address] Eosinophils (Bld) [#/Vol] 0.0 10*3/uL Normal 0.0-0.45 [facility] Comment on above: Performed By: #### C OVID-19 LIAT, SOFIANEG #### [address] Eosinophils/100 WBC (Bld) 0.1 % Normal . [facility] Comment on above: Performed By: #### C OVID-19 LIAT, SOFIANEG #### [facility] [address] [place] [address] Erythrocyte distribution width (RBC) [Ratio] 16.3 % High 12.0-14.8 [facility] Comment on above: Performed By: #### C OVID-19 LIAT, SOFIANEG #### [facility] [address] [place] [address] Hematocrit (Bld) [Volume fraction] 29.4 % Low 38.8-50.0 [facility] Comment on above: Performed By: #### C OVID-19 LIAT, SOFIANEG #### [facility] [address] [place] [address] Hemoglobin (Bld) [Mass/Vol] 9.4 g/dL Low 13.0-17.0 [facility] Comment on above: Performed By: #### C OVID-19 LIAT, SOFIANEG #### [facility] [address] [place] [address] [place] Lymphocytes (Bld) [#/Vol] 0.5 10*3/uL Low 1.00-4.8 [facility] Comment on above: Performed By: #### C OVID-19 LIAT, SOFIANEG #### [facility] [address] [place] [address] Lymphocytes/100 WBC (Bld) 4.1 % Normal . [facility] Comment on above: Performed By: #### C OVID-19 LIAT, SOFIANEG #### [facility] [address] [place] [address] MCH (RBC) [Entitic mass] 26.2 pg Low 27.5-35.2 [facility] Comment on above: Performed By: #### C OVID-19 LIAT, SOFIANEG #### [facility] [address] [place] [address] MCV (RBC) [Entitic vol] 82.4 fL Low 83.5-101 [facility] Comment on above: Performed By: #### C OVID-19 LIAT, SOFIANEG #### [facility] [address] [place] [address] Mean Corpuscular HGB Conc 31.8 g/dL Low 32.5-35.6 [facility] Comment on above: Performed By: #### C OVID-19 LIAT, SOFIANEG #### [address] Monocytes (Bld) [#/Vol] 0.6 10*3/uL Normal 0.0-0.8 [facility] Comment on above: Performed By: #### C OVID-19 LIAT, SOFIANEG #### [facility] [address] [place] [address] Monocytes/100 WBC (Bld) 4.9 % Normal . [facility] Comment on above: Performed By: #### C OVID-19 LIAT, SOFIANEG #### [facility] [address] [place] [address] Neutrophils (Bld) [#/Vol] 11.2 10*3/uL High 1.8-7.7 [facility] Comment on above: Performed By: #### C OVID-19 LIAT, SOFIANEG #### [facility] [address] Neutrophils/100 WBC (Bld) 90.6 % Normal . [facility] Comment on above: Performed By: #### C OVID-19 LIAT, SOFIANEG #### [facility] [address] Nucleated RBC/100 WBC (Bld) [Ratio] 0.2 % Normal 0-0.5 [facility] Comment on above: Performed By: #### C OVID-19 LIAT, SOFIANEG #### [address] Platelet mean volume (Bld) [Entitic vol] 8.0 fL Normal 6.6-10.1 [facility] Comment on above: Performed By: #### C OVID-19 LIAT, SOFIANEG #### [address] Platelets (Bld) [#/Vol] 303 10*3/uL Normal 150-450 [facility] Comment on above: Performed By: #### C OVID-19 LIAT, SOFIANEG #### [place] [address] [place] RBC (Bld) [#/Vol] 3.57 10*6/uL Low 3.90-5.60 [facility] Comment on above: Performed By: #### C OVID-19 LIAT, SOFIANEG #### [address] WBC (Bld) [#/Vol] 12.4 10*3/uL High 4.5-11.0 [facility] Comment on above: Performed By: #### C OVID-19 LIAT, SOFIANEG #### [address] ECG 12 lead ECGon 08-23-2020 ECG 12 lead ECG [facility] [address] [place] [address] [place] [address] Electrocardiograph Report Signed Patient: Rashard Lyman MR#: [id number] : 1960 Acct:[id number] Age/Sex: 60 / M ADM Date: 08/18/20 Loc: Room: [address] [place] [address] Type: ADM IN Attending Dr: Gordon Ewing [...] 08/23/20 0730 Signed By: 08/23/20 1047 Normal [facility] Glucose Poct Glucometerson 0 08-23-2020 Glucose [Mass/Vol] 160 mg/dL Normal [facility] Comment on above: Result Comment: [facility] Glucose Reference Range is dependent on time and content of last meal. Glucose of more than 200 mg/dL in a nonstressed, ambulatory subject supports the diagnosis of Diabetes Mellitus. PERFORMED BY: [place] [address] PATHOLOGIST STAFFING ASSOCIATE JORDAN RODRIGUEZ M.D. Performed By: #### C OVID-19 DELGADO JOSUE #### [address] Glucose [Mass/Vol] 212 mg/dL Normal [facility] Comment on above: Result Comment: [facility] Glucose Reference Range is dependent on time and content of last meal. Glucose of more than 200 mg/dL in a nonstressed, ambulatory subject supports the diagnosis of Diabetes Mellitus. PERFORMED BY: [place] [address] PATHOLOGIST STAFFING ASSOCIATE JORDAN RODRIGUEZ M.D. Performed By: #### C OVID-19 LIAT, SOFIANEG #### [facility] [address] [place] [address] Glucose [Mass/Vol] 159 mg/dL Normal [facility] Comment on above: Result Comment: Center om Glucose Reference Range is dependent on time and content of last meal. Glucose of more than 200 mg/dL in a nonstressed, ambulatory subject supports the diagnosis of Diabetes Mellitus. PERFORMED BY: [place] [address] PATHOLOGIST STAFFING ASSOCIATE JORDAN RODRIGUEZ M.D. Performed By: #### C OVID-19 LIAT, SOFIANEG #### [facility] [address] [place] [address] Glucose [Mass/Vol] 73 mg/dL Normal [facility] Comment on above: Result Comment: Center om Glucose Reference Range is dependent on time and content of last meal. Glucose of more than 200 mg/dL in a nonstressed, ambulatory subject supports the diagnosis of Diabetes Mellitus. PERFORMED BY: [place] [address] PATHOLOGIST STAFFING ASSOCIATE JORDAN RODRIGUEZ M.D. Performed By: #### C OVID-19 LIAT, SOFIANEG #### [facility] [address] [place] [address] [place] Commemt1 Glu2: Cleaned Meter Normal [facility] Comment on above: Result Comment: PERF ORMED BY: [place] [address] PATHOLOGIST STAFFING ASSOCIATE JORDAN RODRIGUEZ M.D. Performed By: #### C OVID-19 LIAT, SOFIANEG #### [facility] [address] [place] [address] [place] Glucose [Mass/Vol] 88 mg/dL Normal [facility] Comment on above: Result Comment: Center om Glucose Reference Range is dependent on time and content of last meal. Glucose of more than 200 mg/dL in a nonstressed, ambulatory subject supports the diagnosis of Diabetes Mellitus. Performed By: #### C OVID-19 LIAT, SOFIANEG #### [facility] [address] [place] [id number] [place] Commemt1 Glu2: Cleaned Meter Normal [facility] Comment on above: Result Comment: PERF ORMED BY: [place] [address] PATHOLOGIST STAFFING ASSOCIATE JORDAN RODRIGUEZ M.D. Performed By: #### C OVID-19 LIAT, SOFIANEG #### [address] Glucose [Mass/Vol] 69 mg/dL [facility] Comment on above: Result Comment: Center om Glucose Reference Range is dependent on time and content of last meal. Glucose of more than 200 mg/dL in a nonstressed, ambulatory subject supports the diagnosis of Diabetes Mellitus. Performed By: #### C OVID-19 LIAT, SOFIANEG #### [facility] [address] [place] [address] [place] Commemt1 [facility] Comment on above: Result Comment: Glu2 : Will Repeat Test Performed By: #### C OVID-19 LIAT, SOFIANEG #### [facility] [address] [place] [address] [place] Commemt2 WILL NOTIFY DR/RN Normal [facility] Comment on above: Performed By: #### C OVID-19 LIAT, SOFIANEG #### [facility] [address] [place], [place] [address] [place] Commemt3 Cleaned Meter [facility] Comment on above: Result Comment: PERF ORMED BY: [place] [address] PATHOLOGIST STAFFING ASSOCIATE JORDAN RODRIGUEZ M.D. Performed By: #### C OVID-19 LIAT, SOFIANEG #### [facility] [address] [place], [place] [address] [place] Glucose [Mass/Vol] 59 mg/dL Off scale low [facility] Comment on above: Result Comment: [facility] Glucose Reference Range is dependent on time and content of last meal. Glucose of more than 200 mg/dL in a nonstressed, ambulatory subject supports the diagnosis of Diabetes Mellitus. Performed By: #### C OVID-19 LIAT, SOFIANEG #### [facility] [address] No Panel Informationon 08-23 Bedside Glucose #[address]/rn [facility] Bedside Glucose #3 Comment Cleaned meter [facility] Renal Function Panelon 08-23 Albumin [Mass/Vol] 1.9 g/dL Low 3.2-5.5 [facility] Comment on above: Performed By: #### C OVID-19 LIAT, SOFIANEG #### [facility] [address] Calcium [Mass/Vol] 8.7 mg/dL Normal 8.2-10.2 [facility] Comment on above: Performed By: #### C OVID-19 LIAT, SOFIANEG #### [facility] [address] [place] [id number] [place] Chloride [Moles/Vol] 95 mmol/L Normal 95-114 [facility] Comment on above: Performed By: #### C OVID-19 LIAT, SOFIANEG #### [facility] [address] [place] [id number] [place] CO2 [Moles/Vol] 22.0 mmol/L Normal 22.0-30.0 [facility] Comment on above: Performed By: #### C OVID-19 LIAT, SOFIANEG #### [facility] [address] [place] [id number] [place] Creatinine [Mass/Vol] 4.79 mg/dL High 0.64-1.27 [facility] Comment on above: Performed By: #### C OVID-19 LIAT, SOFIANEG #### [facility] [address] [place] [id number] [place] Creatinine Clr Calc Pharmacy 27.33 Normal [facility] Comment on above: Result Comment: PERF ORMED BY: [place] [address] PATHOLOGIST STAFFING ASSOCIATE JORDAN RODRIGUEZ M.D. Performed By: #### C OVID-19 LIAT, SOFIANEG #### [facility] [address] [place] [address] [place] Estimated GFR ( Camilla 15 [facility] Comment on above: Result Comment: GFR estimated reference range: According to KDOQI guidelines, <60 ml/min/1.73m2 is sufficient to diagnose a patient with chronic kidney disease. Performed By: #### C OVID-19 LIAT, SOFIANEG #### [address] Estimated GFR (Non- Am 13 [facility] Comment on above: Performed By: #### C OVID-19 LIAT, SOFIANEG #### [facility] [address] [place] [address] Glucose [Mass/Vol] 78 mg/dL Normal 70-100 [facility] Comment on above: Result Comment: Center om Glucose Reference Range is dependent on time and content of last meal. Glucose of more than 200 mg/dL in a nonstressed, ambulatory subject supports the diagnosis of Diabetes Mellitus. ADA recommended reference range Performed By: #### C OVID-19 LIAT, SOFIANEG #### [facility] [address] [place] [address] [place] Phosphate [Mass/Vol] 7.5 mg/dL High 2.5-4.6 [facility] Comment on above: Performed By: #### C OVID-19 LIAT, SOFIANEG #### [facility] [address] [place] [address] [place] Potassium [Moles/Vol] 4.4 mmol/L Normal 3.5-5.1 [facility] Comment on above: Performed By: #### C OVID-19 LIAT, SOFIANEG #### [facility] [address] [place] [address] [place] Sodium [Moles/Vol] 131 mmol/L Low 136-146 [facility] Comment on above: Performed By: #### C OVID-19 LIAT, SOFIANEG #### [facility] [address] Urea nitrogen [Mass/Vol] 63 mg/dL High - [facility] Comment on above: Performed By: #### C OVID-19 LIAT, SOFIANEG #### [facility] [address] Rheumatoid Factoron 08-24-19 21 Rheumatoid Factor 20.6 High 0.0-13.9 [facility] Comment on above: Result Comment: Perf ormed at: CB - [facility] [place] [address] [place] Drawer: Mata Brian PhD, Phone: [phone] Performed By: #### P P #### [facility] [address] Serum nuclear antibody titer on 08-23-2020 Nuclear Ab (S) [Titer] Negative [facility] Comment on above: Negative <1:80 Borde rline 1:80 Positive >1:80Performed at: CB - [facility] [address] [id number] Director: Mata Brian PhD, Phone: [phone] Serum or plasma rheumatoid f actor measurement (units/volume)on 08-23-2020 Rheumatoid factor Qn 20.6 [IU]/mL [facility] Comment on above: Performed at: [facility] [address] [id number] Director: Mata Brian PhD, Phone: [phone] Basic Metabolic Panelon 07-29 Calcium [Mass/Vol] 8.6 mg/dL Normal 8.2-10.2 [facility] Comment on above: Performed By: #### C MP, CBC, MG, TROP, BNP #### [facility] [address] Chloride [Moles/Vol] 94 mmol/L Low 95-114 [facility] Comment on above: Performed By: #### C MP, CBC, MG, TROP, BNP #### [address] CO2 [Moles/Vol] 21.4 mmol/L Low 22.0-30.0 [facility] Comment on above: Performed By: #### C MP, CBC, MG, TROP, BNP #### [address] Creatinine [Mass/Vol] 4.84 mg/dL High 0.64-1.27 [facility] Comment on above: Performed By: #### C MP, CBC, MG, TROP, BNP #### [address] Creatinine Clr Calc Pharmacy 27.02 [facility] Comment on above: Result Comment: PERF ORMED BY: [place] [address] PATHOLOGIST STAFFING ASSOCIATE JORDAN RODRIGUEZ M.D. Performed By: #### C MP, CBC, MG, TROP, BNP #### [address] Estimated GFR ( Camilla 15 [facility] Comment on above: Result Comment: GFR estimated reference range: According to KDOQI guidelines, <60 ml/min/1.73m2 is sufficient to diagnose a patient with chronic kidney disease. Performed By: #### C MP, CBC, MG, TROP, BNP #### [address] Estimated GFR (Non- Am 12 [facility] Comment on above: Performed By: #### C MP, CBC, MG, TROP, BNP #### [address] Glucose [Mass/Vol] 154 mg/dL High 70-100 [facility] Comment on above: Result Comment: Center om Glucose Reference Range is dependent on time and content of last meal. Glucose of more than 200 mg/dL in a nonstressed, ambulatory subject supports the diagnosis of Diabetes Mellitus. ADA recommended reference range Performed By: #### C MP, CBC, MG, TROP, BNP #### [address] Potassium [Moles/Vol] 4.9 mmol/L Normal 3.5-5.1 [facility] Comment on above: Performed By: #### C MP, CBC, MG, TROP, BNP #### [address] Sodium [Moles/Vol] 129 mmol/L Low 136-146 [facility] Comment on above: Performed By: #### C MP, CBC, MG, TROP, BNP #### [address] Urea nitrogen [Mass/Vol] 54 mg/dL High - [facility] Comment on above: Performed By: #### C MP, CBC, MG, TROP, BNP #### [address] biopsyon 08-22-2020 Transferrin [Mass/Vol] 104 mg/dL 180-380 [facility] Complete Blood Count Auto Di ffon 08-22-2020 Basophils (Bld) [#/Vol] 0.0 10*3/uL Normal 0.0-0.2 [facility] Comment on above: Result Comment: PERF ORMED BY: [place] [address] PATHOLOGIST STAFFING ASSOCIATE JORDAN RODRIGUEZ M.D. Performed By: #### C MP, CBC, MG, TROP, BNP #### [address] Basophils/100 WBC (Bld) 0.2 % Normal . [facility] Comment on above: Performed By: #### C MP, CBC, MG, TROP, BNP #### [address] Eosinophils (Bld) [#/Vol] 0.0 10*3/uL Normal 0.0-0.45 [facility] Comment on above: Performed By: #### C MP, CBC, MG, TROP, BNP #### [place] [address] [place] Eosinophils/100 WBC (Bld) 0.1 % Normal . [facility] Comment on above: Performed By: #### C MP, CBC, MG, TROP, BNP #### [address] Erythrocyte distribution width (RBC) [Ratio] 16.4 % High 12.0-14.8 [facility] Comment on above: Performed By: #### C MP, CBC, MG, TROP, BNP #### [address] Hematocrit (Bld) [Volume fraction] 30.4 % Low 38.8-50.0 [facility] Comment on above: Performed By: #### C MP, CBC, MG, TROP, BNP #### [address] Hemoglobin (Bld) [Mass/Vol] 9.9 g/dL Low 13.0-17.0 [facility] Comment on above: Performed By: #### C MP, CBC, MG, TROP, BNP #### [address] Lymphocytes (Bld) [#/Vol] 0.6 10*3/uL Low 1.00-4.8 [facility] Comment on above: Performed By: #### C MP, CBC, MG, TROP, BNP #### [address] Lymphocytes/100 WBC (Bld) 5.6 % Normal . [facility] Comment on above: Performed By: #### C MP, CBC, MG, TROP, BNP #### [address] MCH (RBC) [Entitic mass] 27.1 pg Low 27.5-35.2 [facility] Comment on above: Performed By: #### C MP, CBC, MG, TROP, BNP #### [address] MCV (RBC) [Entitic vol] 83.4 fL Low 83.5-101 [facility] Comment on above: Performed By: #### C MP, CBC, MG, TROP, BNP #### [address] Mean Corpuscular HGB Conc 32.5 g/dL Normal 32.5-35.6 [facility] Comment on above: Performed By: #### C MP, CBC, MG, TROP, BNP #### [address] Monocytes (Bld) [#/Vol] 0.8 10*3/uL Normal 0.0-0.8 [facility] Comment on above: Performed By: #### C MP, CBC, MG, TROP, BNP #### [address] Monocytes/100 WBC (Bld) 7.7 % Normal . [facility] Comment on above: Performed By: #### C MP, CBC, MG, TROP, BNP #### [address] Neutrophils (Bld) [#/Vol] 9.5 10*3/uL High 1.8-7.7 [facility] Comment on above: Performed By: #### C MP, CBC, MG, TROP, BNP #### [address] Neutrophils/100 WBC (Bld) 86.4 % Normal . [facility] Comment on above: Performed By: #### C MP, CBC, MG, TROP, BNP #### [address] Nucleated RBC/100 WBC (Bld) [Ratio] 0.0 % Normal 0-0.5 [facility] Comment on above: Performed By: #### C MP, CBC, MG, TROP, BNP #### [address] Platelet mean volume (Bld) [Entitic vol] 7.8 fL Normal 6.6-10.1 [facility] Comment on above: Performed By: #### C MP, CBC, MG, TROP, BNP #### [address] [place] [address] [place] Platelets (Bld) [#/Vol] 227 10*3/uL Normal 150-450 [facility] Comment on above: Performed By: #### C MP, CBC, MG, TROP, BNP #### [address] RBC (Bld) [#/Vol] 3.64 10*6/uL Low 3.90-5.60 [facility] Comment on above: Performed By: #### C MP, CBC, MG, TROP, BNP #### [address] WBC (Bld) [#/Vol] 11.0 10*3/uL Normal 4.5-11.0 [facility] Comment on above: Performed By: #### C MP, CBC, MG, TROP, BNP #### [address] ECG 12 lead ECGon 08-22-2020 ECG 12 lead ECG [facility] [place] [address] [place] [address] Electrocardiograph Report Signed Patient: Rashard Lyman MR#: [id number] : 1960 Acct:[id number] Age/Sex: 60 / M ADM Date: 08/18/20 Loc: Room: [address] [place] [address] Type: ADM IN Attending Dr: Gordon Ewing [...] MD 08/22/20 1221 Signed By: 08/23/20 1047 [facility] ECG 12 lead ECG [facility] [place] [address] Electrocardiograph Report Signed Patient: Rashard Lyman MR#: [id number] : 1960 Acct:[id number] Age/Sex: 60 / M ADM Date: 08/18/20 Loc: 4 Room: [address] [place] [address] Type: ADM IN Attending Dr: Gordon Ewing [...] MD 08/22/20 0751 Signed By: 08/22/20 1201 [facility] ECH echo transthoracicon ECH echo transthoracic [facility] Main [place] [id number] Echocardiogram Signed Patient: Rashard Lyman MR#: [id number] : 1960 Acct:[id number] Age/Sex: 60 / M ADM Date: 08/18/20 Loc: 4 Room: [address] [place] [address] Type: ADM IN Attending Dr: Gordon Ewing MD Ordering Provider: Gautam Bazan MD Date of Service: 08/22/20 [facility] echo transthoracic: Pericarditis Copies to: Gautam Bazan [...] 08/22/20 1016 Signed By: 08/22/20 1138 Normal [facility] FE PROon 08-22-2020 % Iron Saturation 11.0 % Low 20-50 [facility] Comment on above: Performed By: #### C MP, CBC, MG, TROP, BNP #### [address] Ferritin [Mass/Vol] 334.8 ng/mL Normal 23.9-336.[address] [facility] Comment on above: Result Comment: PERF ORMED BY: [place] [address] PATHOLOGIST STAFFING ASSOCIATE JORDAN RODRIGUEZ M.D. Performed By: #### C MP, CBC, MG, TROP, BNP #### [address] Iron [Mass/Vol] 17 ug/dL Low 40-160 [facility] Comment on above: Performed By: #### C MP, CBC, MG, TROP, BNP #### [facility] [address] [place] [address] Total Iron Binding Capacity 146 ug/dL Low 255-450 [facility] Comment on above: Performed By: #### C MP, CBC, MG, TROP, BNP #### [facility] [address] [place] [address] Transferrin [Mass/Vol] 104 mg/dL Low 180-380 [facility] Comment on above: Performed By: #### C MP, CBC, MG, TROP, BNP #### [facility] [address] [place] [address] [place] Ferritin [Mass/volume] in Se rum or Plasmaon 08-22-2020 Ferritin [Mass/Vol] 334.8 ng/mL 23.9-336.2 [facility] Glucose Poct Glucometerson 0 08-22-2020 Commemt1 Glu2: Cleaned Meter Normal [facility] Comment on above: Result Comment: PERF ORMED BY: [facility] [address] [place] [place] [id number] PATHOLOGIST STAFFING ASSOCIATE JORDAN RODRIGUEZ M.D. Performed By: #### C OVID-19 LIAT, SOFIANEG #### [facility] [address] [place] [id number] [place] Glucose [Mass/Vol] 81 mg/dL Normal [facility] Comment on above: Result Comment: Center om Glucose Reference Range is dependent on time and content of last meal. Glucose of more than 200 mg/dL in a nonstressed, ambulatory subject supports the diagnosis of Diabetes Mellitus. Performed By: #### C OVID-19 LIAT, SOFIANEG #### [facility] [address] [place] [address] [place] Glucose [Mass/Vol] 106 mg/dL Normal [facility] Comment on above: Result Comment: Center om Glucose Reference Range is dependent on time and content of last meal. Glucose of more than 200 mg/dL in a nonstressed, ambulatory subject supports the diagnosis of Diabetes Mellitus. PERFORMED BY: [place] [address] PATHOLOGIST STAFFING ASSOCIATE JORDAN RODRIGUEZ M.D. Performed By: #### C OVID-19 LIAT, SOFIANEG #### [place] [id number] [place] Glucose [Mass/Vol] 158 mg/dL Normal [facility] Comment on above: Result Comment: Center om Glucose Reference Range is dependent on time and content of last meal. Glucose of more than 200 mg/dL in a nonstressed, ambulatory subject supports the diagnosis of Diabetes Mellitus. PERFORMED BY: [facility] [address] [place] [id number] PATHOLOGIST STAFFING ASSOCIATE JORDAN RODRIGUEZ M.D. Performed By: #### C OVID-19 LIAT, SOFIANEG #### [facility] [address] [place] [address] [place] Glucose [Mass/Vol] 138 mg/dL Normal [facility] Comment on above: Result Comment: Center om Glucose Reference Range is dependent on time and content of last meal. Glucose of more than 200 mg/dL in a nonstressed, ambulatory subject supports the diagnosis of Diabetes Mellitus. PERFORMED BY: [place] [address] PATHOLOGIST STAFFING ASSOCIATE JORDAN RODRIGUEZ M.D. Performed By: #### C MP, CBC, MG, TROP, BNP #### [address] Glucose [Mass/Vol] 177 mg/dL Normal [facility] Comment on above: Result Comment: [facility] Glucose Reference Range is dependent on time and content of last meal. Glucose of more than 200 mg/dL in a nonstressed, ambulatory subject supports the diagnosis of Diabetes Mellitus. PERFORMED BY: [place] [address] PATHOLOGIST STAFFING ASSOCIATE JORDAN RODRIGUEZ M.D. Performed By: #### C MP, CBC, MG, TROP, BNP #### [address] Iron [Mass/volume] in Serum or Plasmaon 08-22-2020 Iron [Mass/Vol] 17 ug/dL 40-160 [facility] Iron binding capacity [Mass/ volume] in Serum or Plasmaon 08-22-2020 Iron binding capacity [Mass/Vol] 146 ug/dL 255-450 [facility] Iron saturation [Mass Fracti on] in Serum or Plasmaon 08-22-2020 Iron saturation [Mass fraction] 11.0 % 20-50 [facility] Basic Metabolic Panelon 07-29 Calcium [Mass/Vol] 8.8 mg/dL Normal 8.2-10.2 [facility] Comment on above: Performed By: #### C MP, CBC, MG, TROP, BNP #### [place] [address] [place] Chloride [Moles/Vol] 95 mmol/L Normal 95-114 [facility] Comment on above: Performed By: #### C MP, CBC, MG, TROP, BNP #### [place] [address] [place] CO2 [Moles/Vol] 24.4 mmol/L Normal 22.0-30.0 [facility] Comment on above: Performed By: #### C MP, CBC, MG, TROP, BNP #### [address] Creatinine [Mass/Vol] 4.31 mg/dL High 0.64-1.27 [facility] Comment on above: Performed By: #### C MP, CBC, MG, TROP, BNP #### [address] Creatinine Clr Calc Pharmacy 30.19 [facility] Comment on above: Result Comment: PERF ORMED BY: [place] [address] PATHOLOGIST STAFFING ASSOCIATE JORDAN RODRIGUEZ M.D. Performed By: #### C MP, CBC, MG, TROP, BNP #### [address] Estimated GFR ( Camilla 17 [facility] Comment on above: Result Comment: GFR estimated reference range: According to KDOQI guidelines, <60 ml/min/1.73m2 is sufficient to diagnose a patient with chronic kidney disease. Performed By: #### C MP, CBC, MG, TROP, BNP #### [address] Estimated GFR (Non- Am 14 [facility] Comment on above: Performed By: #### C MP, CBC, MG, TROP, BNP #### [address] Glucose [Mass/Vol] 206 mg/dL High 70-100 [facility] Comment on above: Result Comment: Center om Glucose Reference Range is dependent on time and content of last meal. Glucose of more than 200 mg/dL in a nonstressed, ambulatory subject supports the diagnosis of Diabetes Mellitus. ADA recommended reference range Performed By: #### C MP, CBC, MG, TROP, BNP #### [address] Potassium [Moles/Vol] 4.3 mmol/L Normal 3.5-5.1 [facility] Comment on above: Performed By: #### C MP, CBC, MG, TROP, BNP #### [address] Sodium [Moles/Vol] 131 mmol/L Low 136-146 [facility] Comment on above: Performed By: #### C MP, CBC, MG, TROP, BNP #### [address] Urea nitrogen [Mass/Vol] 44 mg/dL High 9-23 [facility] Comment on above: Performed By: #### C MP, CBC, MG, TROP, BNP #### [address] Creatine Kinaseon 08-21-2020 CK [Catalytic activity/Vol] 45 U/L Normal [facility] Comment on above: Performed By: #### C MP, CBC, MG, TROP, BNP #### [address] Creatine kinase [Enzymatic a ctivity/volume] in Serum or Plasmaon 08-21-2020 CK [Catalytic activity/Vol] 45 U/L [facility] Creatinine Kinase MBon 08-21 CK.MB [Mass/Vol] 2.3 ng/mL Normal 0.6-6.3 [facility] Comment on above: Performed By: #### C MP, CBC, MG, TROP, BNP #### [address] CKMB Relative Index 5.1 % High 0.00-2.50 [facility] Comment on above: Performed By: #### C MP, CBC, MG, TROP, BNP #### [address] ECG 12 lead ECGon 08-21-2020 ECG 12 lead ECG [facility] [place] [address] [place] [address] Electrocardiograph Report Signed Patient: Rashard Lyman MR#: [id number] : 1960 Acct:[id number] Age/Sex: 60 / M ADM Date: 08/18/20 Loc: Room: [address] [place] [address] Type: ADM IN Attending Dr: Eugene Morel [...] DO 08/21/20 0956 Signed By: 08/21/202008 Normal [facility] ECG 12 lead ECG [facility] [place] [address] Electrocardiograph Report Signed Patient: Rashard Lyman MR#: [id number] : 1960 Acct:[id number] Age/Sex: 60 / M ADM Date: 08/18/20 Loc: Room: [address] [place] [address] Type: ADM IN Attending Dr: Eugene Morel [...] Ochoa DO 08/21/20 0828 Signed By: 08/21/202029 [facility] ECG 12 lead ECG [facility] [place] [address] Electrocardiograph Report Signed Patient: Rashard Lyman MR#: [id number] : 1960 Acct:[id number] Age/Sex: 60 / M ADM Date: 08/18/20 Loc: Room: [address] [place] [address] Type: ADM IN Attending Dr: Eugene Morel [...] Nir Ochoa DO 08/21/2016 Signed By: 08/21/202053 [facility] Glucose Poct Glucometerson 0 08-21-2020 Glucose [Mass/Vol] 210 mg/dL [facility] Comment on above: Result Comment: Center Glucose Reference Range is dependent on time and content of last meal. Glucose of more than 200 mg/dL in a nonstressed, ambulatory subject supports the diagnosis of Diabetes Mellitus. PERFORMED BY: [place] [address] PATHOLOGIST STAFFING ASSOCIATE JORDAN RODRIGUEZ M.D. Performed By: #### C MP, CBC, MG, TROP, BNP #### [address] Commemt1 Glu2: Cleaned Meter [facility] Comment on above: Result Comment: PERF ORMED BY: [place] [address] PATHOLOGIST STAFFING ASSOCIATE JORDAN RODRIGUEZ M.D. Performed By: #### C MP, CBC, MG, TROP, BNP #### [address] Glucose [Mass/Vol] 136 mg/dL Normal [facility] Comment on above: Result Comment: Center om Glucose Reference Range is dependent on time and content of last meal. Glucose of more than 200 mg/dL in a nonstressed, ambulatory subject supports the diagnosis of Diabetes Mellitus. Performed By: #### C MP, CBC, MG, TROP, BNP #### [address] Commemt1 Glu2: Cleaned Meter [facility] Comment on above: Result Comment: PERF ORMED BY: [place] [address] PATHOLOGIST STAFFING ASSOCIATE JORDAN RODRIGUEZ M.D. Performed By: #### C MP, CBC, MG, TROP, BNP #### [address] Glucose [Mass/Vol] 198 mg/dL Normal [facility] Comment on above: Result Comment: Center om Glucose Reference Range is dependent on time and content of last meal. Glucose of more than 200 mg/dL in a nonstressed, ambulatory subject supports the diagnosis of Diabetes Mellitus. Performed By: #### C MP, CBC, MG, TROP, BNP #### [address] Commemt1 Glu2: Cleaned Meter [facility] Comment on above: Result Comment: PERF ORMED BY: [place] [address] PATHOLOGIST STAFFING ASSOCIATE JORDAN RODRIGUEZ M.D. Performed By: #### C MP, CBC, MG, TROP, BNP #### [address] Glucose [Mass/Vol] 221 mg/dL Normal [facility] Comment on above: Result Comment: Center om Glucose Reference Range is dependent on time and content of last meal. Glucose of more than 200 mg/dL in a nonstressed, ambulatory subject supports the diagnosis of Diabetes Mellitus. Performed By: #### C MP, CBC, MG, TROP, BNP #### [address] Glucose [Mass/Vol] 210 mg/dL Normal [facility] Comment on above: Result Comment: Center om Glucose Reference Range is dependent on time and content of last meal. Glucose of more than 200 mg/dL in a nonstressed, ambulatory subject supports the diagnosis of Diabetes Mellitus. PERFORMED BY: [place] [address] PATHOLOGIST STAFFING ASSOCIATE JORDAN RODRIGUEZ M.D. Performed By: #### C MP, CBC, MG, TROP, BNP #### [address] No Panel Informationon 08-21 Dohle Bodies Slight [facility] Scan and CBCon 08-21-2020 Anisocytosis Ql (Bld) Slight Normal [facility] Comment on above: Performed By: #### C MP, CBC, MG, TROP, BNP #### [address] Basophils (Bld) [#/Vol] 0.0 10*3/uL Normal 0.0-0.2 [facility] Comment on above: Performed By: #### C MP, CBC, MG, TROP, BNP #### [place] [address] [place] Basophils/100 WBC (Bld) 0.3 % Normal . [facility] Comment on above: Performed By: #### C MP, CBC, MG, TROP, BNP #### [address] Dohle Bodies Slight Normal [facility] Comment on above: Performed By: #### C MP, CBC, MG, TROP, BNP #### [address] Eosinophils (Bld) [#/Vol] 0.5 10*3/uL High 0.0-0.45 [facility] Comment on above: Performed By: #### C MP, CBC, MG, TROP, BNP #### [address] Eosinophils/100 WBC (Bld) 3.2 % Normal . [facility] Comment on above: Performed By: #### C MP, CBC, MG, TROP, BNP #### [address] Erythrocyte distribution width (RBC) [Ratio] 16.6 % High 12.0-14.8 [facility] Comment on above: Performed By: #### C MP, CBC, MG, TROP, BNP #### [address] Hematocrit (Bld) [Volume fraction] 31.8 % Low 38.8-50.0 [facility] Comment on above: Performed By: #### C MP, CBC, MG, TROP, BNP #### [address] Hemoglobin (Bld) [Mass/Vol] 10.3 g/dL Low 13.0-17.0 [facility] Comment on above: Performed By: #### C MP, CBC, MG, TROP, BNP #### [address] Lymphocytes (Bld) [#/Vol] 1.2 10*3/uL Normal 1.00-4.8 [facility] Comment on above: Performed By: #### C MP, CBC, MG, TROP, BNP #### [address] Lymphocytes/100 WBC (Bld) 8.1 % Normal . [facility] Comment on above: Performed By: #### C MP, CBC, MG, TROP, BNP #### [address] MCH (RBC) [Entitic mass] 26.8 pg Low 27.5-35.2 [facility] Comment on above: Performed By: #### C MP, CBC, MG, TROP, BNP #### [address] MCV (RBC) [Entitic vol] 83.1 fL Low 83.5-101 [facility] Comment on above: Performed By: #### C MP, CBC, MG, TROP, BNP #### [address] Mean Corpuscular HGB Conc 32.3 g/dL Low 32.5-35.6 [facility] Comment on above: Performed By: #### C MP, CBC, MG, TROP, BNP #### [place] [address] [place] Monocytes (Bld) [#/Vol] 1.7 10*3/uL High 0.0-0.8 [facility] Comment on above: Performed By: #### C MP, CBC, MG, TROP, BNP #### [address] Monocytes/100 WBC (Bld) 11.4 % Normal . [facility] Comment on above: Performed By: #### C MP, CBC, MG, TROP, BNP #### [place] [address] [place] Neutrophils (Bld) [#/Vol] 11.2 10*3/uL High 1.8-7.7 [facility] Comment on above: Performed By: #### C MP, CBC, MG, TROP, BNP #### [address] Neutrophils/100 WBC (Bld) 77.0 % Normal . [facility] Comment on above: Performed By: #### C MP, CBC, MG, TROP, BNP #### [address] Nucleated RBC/100 WBC (Bld) [Ratio] 0.1 % Normal 0-0.5 [facility] Comment on above: Performed By: #### C MP, CBC, MG, TROP, BNP #### [address] Platelet Estimate Normal Normal Normal [facility] Comment on above: Performed By: #### C MP, CBC, MG, TROP, BNP #### [address] Platelet mean volume (Bld) [Entitic vol] 7.8 fL Normal 6.6-10.1 [facility] Comment on above: Performed By: #### C MP, CBC, MG, TROP, BNP #### [address] Platelet Morphology Normal Normal Normal [facility] Comment on above: Result Comment: PERF ORMED BY: [place] [address] PATHOLOGIST STAFFING ASSOCIATE JORDAN RODRIGUEZ M.D. Performed By: #### C MP, CBC, MG, TROP, BNP #### [address] Platelets (Bld) [#/Vol] 265 10*3/uL Normal 150-450 [facility] Comment on above: Performed By: #### C MP, CBC, MG, TROP, BNP #### [address] RBC (Bld) [#/Vol] 3.83 10*6/uL Low 3.90-5.60 [facility] Comment on above: Performed By: #### C MP, CBC, MG, TROP, BNP #### [address] WBC (Bld) [#/Vol] 14.6 10*3/uL High 4.5-11.0 [facility] Comment on above: Performed By: #### C MP, CBC, MG, TROP, BNP #### [address] Serum or plasma cardiac trop onin I measurement (mass/volume)on 08-21-2020 Troponin I.cardiac [Mass/Vol] ng/mL 0-0.02 [facility] Comment on above: HÉCTOR [place] Cut off value > or equal to 0.03 ng/mL in conjunction with clinical conditions of myocardial infarction.(www.escardio.org/guidelines) Serum or plasma creatine kin ase MB (CKMB)/total creatine kinase (CK) ratio by calculaon 08-21-2020 CK.MB Calc [Catalytic fraction] 5.1 % 0.00-2.50 [facility] Serum or plasma creatine kin ase MB measurement (mass/volume)on 08-21-2020 CK.MB [Mass/Vol] 2.3 ng/mL 0.6-6.3 [facility] Troponin I(TnI)on 08-21-2020 Troponin I.cardiac [Mass/Vol] ng/mL Normal 0-0.02 [facility] Comment on above: Result Comment: H[place] Cut off value > or equal to 0.03 ng/mL in conjunction with clinical conditions of myocardial infarction. (www.escardio.org/guidelines) PERFORMED BY: [place] [address] PATHOLOGIST STAFFING ASSOCIATE JORDAN RODRIGUEZ M.D. Performed By: #### C MP, CBC, MG, TROP, BNP #### [facility] [address] Troponin I.cardiac [Mass/Vol] ng/mL Normal 0-0.02 [facility] Comment on above: Result Comment: [place] Cut off value > or equal to 0.03 ng/mL in conjunction with clinical conditions of myocardial infarction. (www.escardio.org/guidelines) PERFORMED BY: [place] [address] PATHOLOGIST STAFFING ASSOCIATE JORDAN RODRIGUEZ M.D. Performed By: #### C MP, CBC, MG, TROP, BNP #### [address] Basic Metabolic Panelon 07-29 Calcium [Mass/Vol] 8.4 mg/dL Normal 8.2-10.2 [facility] Comment on above: Performed By: #### C MP, CBC, MG, TROP, BNP #### [address] Chloride [Moles/Vol] 99 mmol/L Normal 95-114 [facility] Comment on above: Performed By: #### C MP, CBC, MG, TROP, BNP #### [address] CO2 [Moles/Vol] 25.0 mmol/L Normal 22.0-30.0 [facility] Comment on above: Performed By: #### C MP, CBC, MG, TROP, BNP #### [address] Creatinine [Mass/Vol] 3.26 mg/dL High 0.64-1.27 [facility] Comment on above: Performed By: #### C MP, CBC, MG, TROP, BNP #### [address] Creatinine Clr Calc Pharmacy 39.92 [facility] Comment on above: Result Comment: PERF ORMED BY: [place] [address] PATHOLOGIST STAFFING ASSOCIATE JORDAN RODRIGUEZ M.D. Performed By: #### C MP, CBC, MG, TROP, BNP #### [address] Estimated GFR ( Camilla 24 Normal [facility] Comment on above: Result Comment: GFR estimated reference range: According to KDOQI guidelines, <60 ml/min/1.73m2 is sufficient to diagnose a patient with chronic kidney disease. Performed By: #### C MP, CBC, MG, TROP, BNP #### [address] Estimated GFR (Non- Am 19 Normal [facility] Comment on above: Performed By: #### C MP, CBC, MG, TROP, BNP #### [address] Glucose [Mass/Vol] 205 mg/dL High 70-100 [facility] Comment on above: Result Comment: Center Glucose Reference Range is dependent on time and content of last meal. Glucose of more than 200 mg/dL in a nonstressed, ambulatory subject supports the diagnosis of Diabetes Mellitus. ADA recommended reference range Performed By: #### C MP, CBC, MG, TROP, BNP #### [address] Potassium [Moles/Vol] 3.5 mmol/L Normal 3.5-5.1 [facility] Comment on above: Performed By: #### C MP, CBC, MG, TROP, BNP #### [address] Sodium [Moles/Vol] 131 mmol/L Low 136-146 [facility] Comment on above: Performed By: #### C MP, CBC, MG, TROP, BNP #### [address] Urea nitrogen [Mass/Vol] 35 mg/dL High 9-23 [facility] Comment on above: Performed By: #### C MP, CBC, MG, TROP, BNP #### [address] C-Reactive Proteinon 021 C-Reactive Protein 19.4 mg/dL High 0.0-1.0 [facility] Comment on above: Result Comment: PERF ORMED BY: [place] [address] PATHOLOGIST STAFFING ASSOCIATE JORDAN RODRIGUEZ M.D. Performed By: #### C MP, CBC, MG, TROP, BNP #### [address] Erythrocyte Sedimentation Ra donato 08-20-2020 ESR (Bld) [Velocity] 108 mm/h High 0- [facility] Comment on above: Result Comment: PERF ORMED BY: [place] [address] PATHOLOGIST STAFFING ASSOCIATE JORDAN RODRIGUEZ M.D. Performed By: #### C MP, CBC, MG, TROP, BNP #### [address] Erythrocyte sedimentation ra te by Photometric methodon 08-20-2020 ESR Photometric method (Bld) [Velocity] 108 mm/hr 0- [facility] Glucose Poct Glucometerson 0 08-20-2020 Glucose [Mass/Vol] 195 mg/dL Normal [facility] Comment on above: Result Comment: Center om Glucose Reference Range is dependent on time and content of last meal. Glucose of more than 200 mg/dL in a nonstressed, ambulatory subject supports the diagnosis of Diabetes Mellitus. PERFORMED BY: [place] [address] PATHOLOGIST STAFFING ASSOCIATE JORDAN RODRIGUEZ M.D. Performed By: #### C MP, CBC, MG, TROP, BNP #### [address] Glucose [Mass/Vol] 171 mg/dL Normal [facility] Comment on above: Result Comment: Center om Glucose Reference Range is dependent on time and content of last meal. Glucose of more than 200 mg/dL in a nonstressed, ambulatory subject supports the diagnosis of Diabetes Mellitus. PERFORMED BY: [place] [address] PATHOLOGIST STAFFING ASSOCIATE JORDAN RODRIGUEZ M.D. Performed By: #### C MP, CBC, MG, TROP, BNP #### [address] Glucose [Mass/Vol] 246 mg/dL Normal [facility] Comment on above: Result Comment: Center om Glucose Reference Range is dependent on time and content of last meal. Glucose of more than 200 mg/dL in a nonstressed, ambulatory subject supports the diagnosis of Diabetes Mellitus. PERFORMED BY: [place] [address] PATHOLOGIST STAFFING ASSOCIATE JORDAN RODRIGUEZ M.D. Performed By: #### C MP, CBC, MG, TROP, BNP #### [address] Glucose [Mass/Vol] 274 mg/dL Normal [facility] Comment on above: Result Comment: Center om Glucose Reference Range is dependent on time and content of last meal. Glucose of more than 200 mg/dL in a nonstressed, ambulatory subject supports the diagnosis of Diabetes Mellitus. PERFORMED BY: [place] [address] PATHOLOGIST STAFFING ASSOCIATE JORDAN RODRIGUEZ M.D. Performed By: #### C MP, CBC, MG, TROP, BNP #### [address] Glucose [Mass/Vol] 221 mg/dL Normal [facility] Comment on above: Result Comment: Center om Glucose Reference Range is dependent on time and content of last meal. Glucose of more than 200 mg/dL in a nonstressed, ambulatory subject supports the diagnosis of Diabetes Mellitus. PERFORMED BY: [place] [address] PATHOLOGIST STAFFING ASSOCIATE JORDAN RODRIGUEZ M.D. Performed By: #### C MP, CBC, MG, TROP, BNP #### [address] MR thoracic spine wo conon 0 08-20-2020 MR thoracic spine wo con [facility] [place] [address] [place] [address] MRI Report Signed Patient: Rashard Lyman MR#: [id number] : 1960 Acct:[id number] Age/Sex: 60 / M ADM Date: 08/18/20 Loc: Room: [address] [place] [address] Type: ADM IN Attending Dr: Eugene Morel [...] Chitra Brantley M.D.08/20/2020 6:27 PM Dictation Location: [place] [address] Transcribed By: [facility] 08/20/201826 Dictated By: Chitra Brantley MD 08/20/201816 Signed By: 08/20/201826 Normal [facility] Scan and CBCon 08-20-2020 Anisocytosis Ql (Bld) Slight Normal [facility] Comment on above: Performed By: #### C MP, CBC, MG, TROP, BNP #### [facility] [address] Basophils (Bld) [#/Vol] 0.0 10*3/uL Normal 0.0-0.2 [facility] Comment on above: Performed By: #### C MP, CBC, MG, TROP, BNP #### [facility] [address] [place] [address] [place] Basophils/100 WBC (Bld) 0.3 % Normal . [facility] Comment on above: Performed By: #### C MP, CBC, MG, TROP, BNP #### [address] Dohle Bodies Slight Normal [facility] Comment on above: Performed By: #### C MP, CBC, MG, TROP, BNP #### [address] Eosinophils (Bld) [#/Vol] 0.5 10*3/uL High 0.0-0.45 [facility] Comment on above: Performed By: #### C MP, CBC, MG, TROP, BNP #### [address] Eosinophils/100 WBC (Bld) 3.8 % Normal . [facility] Comment on above: Performed By: #### C MP, CBC, MG, TROP, BNP #### [address] Erythrocyte distribution width (RBC) [Ratio] 16.2 % High 12.0-14.8 [facility] Comment on above: Performed By: #### C MP, CBC, MG, TROP, BNP #### [address] Hematocrit (Bld) [Volume fraction] 32.1 % Low 38.8-50.0 [facility] Comment on above: Performed By: #### C MP, CBC, MG, TROP, BNP #### [address] Hemoglobin (Bld) [Mass/Vol] 10.4 g/dL Low 13.0-17.0 [facility] Comment on above: Performed By: #### C MP, CBC, MG, TROP, BNP #### [address] Lymphocytes (Bld) [#/Vol] 1.5 10*3/uL Normal 1.00-4.8 [facility] Comment on above: Performed By: #### C MP, CBC, MG, TROP, BNP #### [address] Lymphocytes/100 WBC (Bld) 11.0 % Normal . [facility] Comment on above: Performed By: #### C MP, CBC, MG, TROP, BNP #### [address] MCH (RBC) [Entitic mass] 26.7 pg Low 27.5-35.2 [facility] Comment on above: Performed By: #### C MP, CBC, MG, TROP, BNP #### [address] MCV (RBC) [Entitic vol] 82.2 fL Low 83.5-101 [facility] Comment on above: Performed By: #### C MP, CBC, MG, TROP, BNP #### [address] Mean Corpuscular HGB Conc 32.5 g/dL Normal 32.5-35.6 [facility] Comment on above: Performed By: #### C MP, CBC, MG, TROP, BNP #### [address] Monocytes (Bld) [#/Vol] 1.7 10*3/uL High 0.0-0.8 [facility] Comment on above: Performed By: #### C MP, CBC, MG, TROP, BNP #### [address] Monocytes/100 WBC (Bld) 12.5 % Normal . [facility] Comment on above: Performed By: #### C MP, CBC, MG, TROP, BNP #### [place] [address] [place] Neutrophils (Bld) [#/Vol] 9.7 10*3/uL High 1.8-7.7 [facility] Comment on above: Performed By: #### C MP, CBC, MG, TROP, BNP #### [address] Neutrophils/100 WBC (Bld) 72.4 % Normal . [facility] Comment on above: Performed By: #### C MP, CBC, MG, TROP, BNP #### [address] Nucleated RBC/100 WBC (Bld) [Ratio] 0.0 % Normal 0-0.5 [facility] Comment on above: Performed By: #### C MP, CBC, MG, TROP, BNP #### [address] Platelet Estimate Normal Normal Normal [facility] Comment on above: Performed By: #### C MP, CBC, MG, TROP, BNP #### [address] Platelet mean volume (Bld) [Entitic vol] 7.7 fL Normal 6.6-10.1 [facility] Comment on above: Performed By: #### C MP, CBC, MG, TROP, BNP #### [address] Platelet Morphology Normal Normal Normal [facility] Comment on above: Performed By: #### C MP, CBC, MG, TROP, BNP #### [address] Platelets (Bld) [#/Vol] 253 10*3/uL Normal 150-450 [facility] Comment on above: Performed By: #### C MP, CBC, MG, TROP, BNP #### [address] RBC (Bld) [#/Vol] 3.90 10*6/uL Normal 3.90-5.60 [facility] Comment on above: Performed By: #### C MP, CBC, MG, TROP, BNP #### [address] WBC (Bld) [#/Vol] 13.4 10*3/uL High 4.5-11.0 [facility] Comment on above: Performed By: #### C MP, CBC, MG, TROP, BNP #### [address] Serum or plasma C reactive p rotein measurement (mass/volume)on 08-20-2020 CRP [Mass/Vol] 19.4 mg/dL 0.0-1.0 [facility] A1C with Estimated Average G cole 08-19-2020 Glucose [Mass/Vol] 298 mg/dL Normal [facility] Comment on above: Result Comment: PERF ORMED BY: [place] [address] PATHOLOGIST STAFFING ASSOCIATE JORDAN RODRIGUEZ M.D. Performed By: #### C MP, CBC, MG, TROP, BNP #### [address] HbA1c (Bld) [Mass fraction] 12.0 % High 4.3-5.6 [facility] Comment on above: Result Comment: Incr eased risk for diabetes: 5.7 - 6.4 diabetes: >6.4 glycemic control for adults with diabetes: <7.0 Performed By: #### C MP, CBC, MG, TROP, BNP #### [address] ABO and Rh group post transf usion reaction Nom (Bld)on 08-19-2020 Microscopic observation Gram stain Nom (Unsp spec) [facility] Aerobic Cultureon 08-19-2020 Aerobic Culture Light Normal Respira tory Edith 2 Days Gram Stain Result 2+ White Blood Cells 1+ Epithelial Cells 1+ Gram Positive Cocci PERFORMED BY: [place] [address] PATHOLOGIST STAFFING ASSOCIATE JORDAN RODRIGUEZ M.D. Normal [facility] Comment on above: Performed By: #### C MP, CBC, MG, TROP, BNP #### [address] Basic Metabolic Panelon 07-29 Calcium [Mass/Vol] 8.4 mg/dL Normal 8.2-10.2 [facility] Comment on above: Performed By: #### C MP, CBC, MG, TROP, BNP #### [facility] [address] Chloride [Moles/Vol] 98 mmol/L Normal 95-114 [facility] Comment on above: Performed By: #### C MP, CBC, MG, TROP, BNP #### [facility] [address] CO2 [Moles/Vol] 25.3 mmol/L Normal 22.0-30.0 [facility] Comment on above: Performed By: #### C MP, CBC, MG, TROP, BNP #### [facility] [address] Creatinine [Mass/Vol] 3.04 mg/dL High 0.64-1.27 [facility] Comment on above: Performed By: #### C MP, CBC, MG, TROP, BNP #### [address] Creatinine Clr Calc Pharmacy 42.91 [facility] Comment on above: Performed By: #### C MP, CBC, MG, TROP, BNP #### [address] Estimated GFR ( Camilla 26 [facility] Comment on above: Result Comment: GFR estimated reference range: According to KDOQI guidelines, <60 ml/min/1.73m2 is sufficient to diagnose a patient with chronic kidney disease. Performed By: #### C MP, CBC, MG, TROP, BNP #### [address] Estimated GFR (Non- Am 21 [facility] Comment on above: Performed By: #### C MP, CBC, MG, TROP, BNP #### [address] Glucose [Mass/Vol] 328 mg/dL High 70-100 [facility] Comment on above: Result Comment: Center Glucose Reference Range is dependent on time and content of last meal. Glucose of more than 200 mg/dL in a nonstressed, ambulatory subject supports the diagnosis of Diabetes Mellitus. ADA recommended reference range Performed By: #### C MP, CBC, MG, TROP, BNP #### [facility] [address] Potassium [Moles/Vol] 3.4 mmol/L Low 3.5-5.1 [facility] Comment on above: Performed By: #### C MP, CBC, MG, TROP, BNP #### [facility] [address] Sodium [Moles/Vol] 131 mmol/L Low 136-146 [facility] Comment on above: Performed By: #### C MP, CBC, MG, TROP, BNP #### [facility] [address] Urea nitrogen [Mass/Vol] 30 mg/dL High 01-19 [facility] Comment on above: Performed By: #### C MP, CBC, MG, TROP, BNP #### [address] abdomen pelvis wo conon 0 08-19-2020 CT abdomen pelvis wo con [facility] [place] [address] [place] [address] CT Scan Report Signed Patient: Rashard Lyman MR#: [id number] : 1960 Acct:[id number] Age/Sex: 60 / M ADM Date: 08/18/20 Loc: Room: [address] [place] [address] Type: ADM IN Attending Dr: Eugene Morel DO Ordering Provider: Eugene Morel DO Date of Service: 08/19/20 CT/CT abdomen pelvis wo con: left sided pain ([id number]) CT/CT chest wo con: left lung base [...] Hector Mckinney M.D.08/19/2020 8:01 PM Dictation Location: [place] [address] Transcribed By: [facility] 08/19/202000 Dictated By: Hector Mckinney II, MD 08/19/20 194 Signed By: 08/19/202000 [facility] Glucose Poct Glucometerson 0 08-19-2020 Glucose [Mass/Vol] 266 mg/dL Normal [facility] Comment on above: Result Comment: Center om Glucose Reference Range is dependent on time and content of last meal. Glucose of more than 200 mg/dL in a nonstressed, ambulatory subject supports the diagnosis of Diabetes Mellitus. PERFORMED BY: [place] [address] PATHOLOGIST STAFFING ASSOCIATE JORDAN RODRIGUEZ M.D. Performed By: #### C MP, CBC, MG, TROP, BNP #### [facility] [address] [place] [address] [place] Glucose [Mass/Vol] 349 mg/dL Normal [facility] Comment on above: Result Comment: Center om Glucose Reference Range is dependent on time and content of last meal. Glucose of more than 200 mg/dL in a nonstressed, ambulatory subject supports the diagnosis of Diabetes Mellitus. PERFORMED BY: [address] [place] [address] PATHOLOGIST STAFFING ASSOCIATE JORDAN RODRIGUEZ M.D. Performed By: #### C MP, CBC, MG, TROP, BNP #### [facility] [address] [place] [address] [place] Glucose [Mass/Vol] 258 mg/dL Normal [facility] Comment on above: Result Comment: Center om Glucose Reference Range is dependent on time and content of last meal. Glucose of more than 200 mg/dL in a nonstressed, ambulatory subject supports the diagnosis of Diabetes Mellitus. PERFORMED BY: [place] [address] PATHOLOGIST STAFFING ASSOCIATE JORDAN RODRIGUEZ M.D. Performed By: #### C MP, CBC, MG, TROP, BNP #### [facility] [address] [place] [address] [place] Glucose [Mass/Vol] 292 mg/dL Normal [facility] Comment on above: Result Comment: Center om Glucose Reference Range is dependent on time and content of last meal. Glucose of more than 200 mg/dL in a nonstressed, ambulatory subject supports the diagnosis of Diabetes Mellitus. PERFORMED BY: [address] [place] [address] PATHOLOGIST STAFFING ASSOCIATE JORDAN RODRIGUEZ M.D. Performed By: #### C MP, CBC, MG, TROP, BNP #### [address] Commemt1 Glu2: Cleaned Meter Normal [facility] Comment on above: Result Comment: PERF ORMED BY: [place] [address] PATHOLOGIST STAFFING ASSOCIATE JORDAN RODRIGUEZ M.D. Performed By: #### C MP, CBC, MG, TROP, BNP #### [address] Glucose [Mass/Vol] 350 mg/dL [facility] Comment on above: Result Comment: [facility] Glucose Reference Range is dependent on time and content of last meal. Glucose of more than 200 mg/dL in a nonstressed, ambulatory subject supports the diagnosis of Diabetes Mellitus. Performed By: #### C MP, CBC, MG, TROP, BNP #### [address] Glucose mean value [Mass/vol ume] in Blood Estimated from glycated hemoglobinon 08-19-2020 Average glucose Estimated from glycated hemoglobin (Bld) [Mass/Vol] 298 mg/dL [facility] Gram Stainon 08-19-2020 Microscopic observation Gram stain Nom (Unsp spec) Gram Stain Result 2+ White Blood Cells 1+ Epithelial Cells 1+ Gram Positive Cocci PERFORMED BY: [place] [address] PATHOLOGIST STAFFING ASSOCIATE JORDAN RODRIGUEZ M.D. [facility] Comment on above: Performed By: #### C MP, CBC, MG, TROP, BNP #### [address] Hemoglobin A1c percentageon 08-19-2020 HbA1c (Bld) [Mass fraction] 12.0 % 4.3-5.6 [facility] Comment on above: Increased risk for d iabetes: 5.7 - 6.4diabetes: >6.4glycemic control for adults with diabetes: <7.0 Laboratory - Chemistry and C hemistry - challengeon 08-19-2020 Magnesium [Mass/Vol] 2.0 mg/dL 1.6-2.6 [facility] Magnesiumon 08-19-2020 Magnesium [Mass/Vol] 2.0 mg/dL Normal 1.6-2.6 [facility] Comment on above: Performed By: #### C MP, CBC, MG, TROP, BNP #### [address] No Panel Informationon 08-19 25-Hydroxy Vitamin D Total 24.6 ng/mL 30-100 [facility] Comment on above: VITAMIN D STATUS 25( [place])VITAMIN D RANGE (ng/mL) Deficient <20 Insufficient 20 to <30Sufficient 30 to 100Reference: Aki MF,Oriana NC, Elli JONAS, et al. Evaluation,treatment, and prevention of vitamin D deficiency; an Endocrine Society clinical practice guideline. JCEM. 2010; 96(7):1911-30. Scan and CBCon 08-19-2020 Anisocytosis Ql (Bld) Slight Normal [facility] Comment on above: Performed By: #### C MP, CBC, MG, TROP, BNP #### [address] Basophils (Bld) [#/Vol] 0.1 10*3/uL Normal 0.0-0.2 [facility] Comment on above: Performed By: #### C MP, CBC, MG, TROP, BNP #### [address] Basophils/100 WBC (Bld) 0.8 % Normal . [facility] Comment on above: Performed By: #### C MP, CBC, MG, TROP, BNP #### [address] Eosinophils (Bld) [#/Vol] 0.4 10*3/uL Normal 0.0-0.45 [facility] Comment on above: Performed By: #### C MP, CBC, MG, TROP, BNP #### [address] Eosinophils/100 WBC (Bld) 2.8 % Normal . [facility] Comment on above: Performed By: #### C MP, CBC, MG, TROP, BNP #### [address] Erythrocyte distribution width (RBC) [Ratio] 16.0 % High 12.0-14.8 [facility] Comment on above: Performed By: #### C MP, CBC, MG, TROP, BNP #### [address] Hematocrit (Bld) [Volume fraction] 32.4 % Low 38.8-50.0 [facility] Comment on above: Performed By: #### C MP, CBC, MG, TROP, BNP #### [address] Hemoglobin (Bld) [Mass/Vol] 10.5 g/dL Low 13.0-17.0 [facility] Comment on above: Performed By: #### C MP, CBC, MG, TROP, BNP #### [address] Lymphocytes (Bld) [#/Vol] 1.6 10*3/uL Normal 1.00-4.8 [facility] Comment on above: Performed By: #### C MP, CBC, MG, TROP, BNP #### [address] Lymphocytes/100 WBC (Bld) 11.4 % Normal . [facility] Comment on above: Performed By: #### C MP, CBC, MG, TROP, BNP #### [address] MCH (RBC) [Entitic mass] 26.6 pg Low 27.5-35.2 [facility] Comment on above: Performed By: #### C MP, CBC, MG, TROP, BNP #### [address] MCV (RBC) [Entitic vol] 82.4 fL Low 83.5-101 [facility] Comment on above: Performed By: #### C MP, CBC, MG, TROP, BNP #### [facility] [address] [place] [address] Mean Corpuscular HGB Conc 32.3 g/dL Low 32.5-35.6 [facility] Comment on above: Performed By: #### C MP, CBC, MG, TROP, BNP #### [address] Monocytes (Bld) [#/Vol] 1.6 10*3/uL High 0.0-0.8 [facility] Comment on above: Performed By: #### C MP, CBC, MG, TROP, BNP #### [address] Monocytes/100 WBC (Bld) 11.7 % Normal . [facility] Comment on above: Performed By: #### C MP, CBC, MG, TROP, BNP #### [address] Neutrophils (Bld) [#/Vol] 10.2 10*3/uL High 1.8-7.7 [facility] Comment on above: Performed By: #### C MP, CBC, MG, TROP, BNP #### [address] Neutrophils/100 WBC (Bld) 73.3 % Normal . [facility] Comment on above: Performed By: #### C MP, CBC, MG, TROP, BNP #### [place] [address] [place] Nucleated RBC/100 WBC (Bld) [Ratio] 0.0 % Normal 0-0.5 [facility] Comment on above: Performed By: #### C MP, CBC, MG, TROP, BNP #### [address] Platelet Estimate Normal Normal Normal [facility] Comment on above: Performed By: #### C MP, CBC, MG, TROP, BNP #### [address] Platelet mean volume (Bld) [Entitic vol] 7.5 fL Normal 6.6-10.1 [facility] Comment on above: Performed By: #### C MP, CBC, MG, TROP, BNP #### [address] Platelet Morphology Normal Normal Normal [facility] Comment on above: Result Comment: PERF ORMED BY: [place] [address] PATHOLOGIST STAFFING ASSOCIATE JORDAN RODRIGUEZ M.D. Performed By: #### C MP, CBC, MG, TROP, BNP #### [address] Platelets (Bld) [#/Vol] 249 10*3/uL Normal 150-450 [facility] Comment on above: Performed By: #### C MP, CBC, MG, TROP, BNP #### [address] RBC (Bld) [#/Vol] 3.93 10*6/uL Normal 3.90-5.60 [facility] Comment on above: Performed By: #### C MP, CBC, MG, TROP, BNP #### [address] WBC (Bld) [#/Vol] 14.0 10*3/uL High 4.5-11.0 [facility] Comment on above: Performed By: #### C MP, CBC, MG, TROP, BNP #### [address] US renal BIon 08-19-2020 US renal BI [facility] [place] [address] Ultrasound Report Signed Patient: Rashard Lyman MR#: [id number] : 1960 Acct:[id number] Age/Sex: 60 / M ADM Date: 08/18/20 Loc: Room: [address] [place] [address] Type: ADM IN Attending Dr: Eugene Morel [...] Hector Mckinney M.D.08/19/2020 6:09 PM Dictation Location: [place] [address] Tech: Sandra Sierra Transcribed By: JU 08/19/201808 Dictated By: Hector Mckinney II, MD 08/19/201807 Signed By: 08/19/201808 Normal [facility] Vitamin D 25 Hydroxy Totalon 08-19-2020 Vitamin D 25 Hydroxy Total 24.6 ng/mL Low 30-100 [facility] Comment on above: Result Comment: ADA MIN D STATUS 25([place])VITAMIN D RANGE (ng/mL) Deficient <20 Insufficient 20 to <30 Sufficient 30 to 100 Reference: Aki MF,Oriana NC, Phillip-Sy JONAS, et al. Evaluation,treatment, and prevention of vitamin D deficiency; an Endocrine Society clinical practice guideline. JCEM. 2010; 96(7):1911-30. PERFORMED BY: [address] [place] [address] PATHOLOGIST STAFFING ASSOCIATE JORDAN RODRIGUEZ M.D. Performed By: #### C MP, CBC, MG, TROP, BNP #### [address] Activated partial thrombopla stin time (aPTT) in platelet poor plasma by coagulation aon 08-18-2020 aPTT Coag (PPP) [Time] 36.9 s 25.1-36.5 [facility] Albumin [Mass/volume] in Ser um or Plasmaon 08-18-2020 Albumin [Mass/Vol] 2.7 g/dL 3.2-5.5 [facility] B-Type Natriuretic Peptideon 08-18-2020 Natriuretic peptide B (Bld) [Mass/Vol] 48.0 pg/mL Normal 5-100 [facility] Comment on above: Result Comment: PERF ORMED BY: [place] [address] PATHOLOGIST STAFFING ASSOCIATE JORDAN RODRIGUEZ M.D. Performed By: #### C MP, CBC, MG, TROP, BNP #### [address] Bacterial blood cultureon Bacteria identified Cx Nom (Bld) NO GROWTH 5 DAYS [facility] Basophils Auto (Bld) [#/Vol] on 08-18-2020 Basophils (Bld) [#/Vol] 0.0 10*3/uL 0.0-0.2 [facility] Basophils/100 WBC Auto (Bld) on 08-18-2020 Basophils/100 WBC (Bld) 0.3 % [facility] Beta Hydroxybuterateon 08-18 Beta Hydroxybuterate 0.44 mmol/L High 0.02-0.27 [facility] Comment on above: Result Comment: PERF ORMED BY: [place] [address] PATHOLOGIST STAFFING ASSOCIATE JORDAN RODRIGUEZ M.D. Performed By: #### C MP, CBC, MG, TROP, BNP #### [address] Beta-hydroxybutyric acid faraz surementon 08-18-2020 Beta hydroxybutyrate [Mass/Vol] 0.44 mmol/L 0.02-0.27 [facility] BioFire Not Detectedon 08-18 BioFire Not Detected Not detected Normal Not Detecte [facility] Comment on above: Result Comment: This is a duplicate RP2.1 COVID (PCR) result to be used for statistical tracking purpose only. PERFORMED BY: [place] [address] PATHOLOGIST STAFFING ASSOCIATE JORDAN RODRIGUEZ M.D. Performed By: #### C MP, CBC, MG, TROP, BNP #### [address] Blood Cultureon 08-18-2020 Bacteria identified Cx Nom (Bld) NO GROWTH 5 DAYS PERFORMED BY: [place] [address] PATHOLOGIST STAFFING ASSOCIATE JORDAN RODRIGUEZ M.D. [facility] Comment on above: Performed By: #### C MP, CBC, MG, TROP, BNP #### [address] Bacteria identified Cx Nom (Bld) NO GROWTH 5 DAYS PERFORMED BY: [place] [address] PATHOLOGIST STAFFING ASSOCIATE JORDAN RODRIGUEZ M.D. [facility] Comment on above: Performed By: #### C MP, CBC, MG, TROP, BNP #### [address] Blood hemoglobin measurement (mass/volume)on 08-18-2020 Hemoglobin (Bld) [Mass/Vol] 11.8 g/dL 13.0-17.0 [facility] Blood leukocytes automated c ount (number/volume)on 08-18-2020 WBC (Bld) [#/Vol] 15.3 10*3/uL 4.5-11.0 [facility] COVID-19 Antigenon COVID-19 Antigen Healthcare Worker?: N [...] its performance Liat Disclaimer characteristic determined by [employer] and Liat Disclaimer validated at [facility]. This Liat Disclaimer test has not been [...] is terminated or revoked sooner. PERFORMED BY: [place] [address] PATHOLOGIST STAFFING ASSOCIATE JORDAN RODRIGUEZ M.D. [facility] Comment on above: Performed By: #### C OVID-19 LIAT, SOFIANEG #### [facility] [address] [place] [id number] [facility] COVID-19 Detected/Not Detect edon 08-18-2020 SARS-CoV-2 (COVID-19) RNA SUDHA+non-probe Ql (Nph) Not detected Not Detecte [facility] Comment on above: This is a duplicate RP2.1 COVID (PCR) result to be used for statistical tracking purpose only. COVID-19 SOFIAon 08-18-2020 SARS-CoV+SARS-CoV-2 (COVID-19) Ag IA.rapid Ql (Resp) Negative Negative [facility] Comment on above: This is a duplicate Liat SARS Antigen (AGUSTINA) result to be used for statistical tracking purpose only. Coagulation Profileon 2020 aPTT Coag (Bld) [Time] 36.9 s High 25.1-36.5 [facility] Comment on above: Order Comment: REDRA W FOR SHORT DRAW AND HEMOLYSIS Result Comment: PERF ORMED BY: [address] [id number] PATHOLOGIST STAFFING ASSOCIATE JORDAN RODRIGUEZ M.D. Performed By: #### P P #### [address] INR Coag (PPP) [Relative time] 1.0 {INR} Normal [facility] Comment on above: Order Comment: REDRA W [...] 4.5 Performed By: #### P P #### [address] PT Coag (PPP) [Time] 11.7 s Normal 9.0-12.9 [facility] Comment on above: Order Comment: REDRA W FOR SHORT DRAW AND HEMOLYSIS Performed By: #### P P #### [address] Complete Blood Count Auto Di ffon 08-18-2020 Basophils (Bld) [#/Vol] 0.0 10*3/uL Normal 0.0-0.2 [facility] Comment on above: Result Comment: PERF ORMED BY: [place] [address] PATHOLOGIST STAFFING ASSOCIATE JORDAN RODRIGUEZ M.D. Performed By: #### C MP, CBC, MG, TROP, BNP #### [address] Basophils/100 WBC (Bld) 0.3 % Normal . [facility] Comment on above: Performed By: #### C MP, CBC, MG, TROP, BNP #### [address] Eosinophils (Bld) [#/Vol] 0.5 10*3/uL High 0.0-0.45 [facility] Comment on above: Performed By: #### C MP, CBC, MG, TROP, BNP #### [address] Eosinophils/100 WBC (Bld) 3.4 % Normal . [facility] Comment on above: Performed By: #### C MP, CBC, MG, TROP, BNP #### [address] Erythrocyte distribution width (RBC) [Ratio] 16.3 % High 12.0-14.8 [facility] Comment on above: Performed By: #### C MP, CBC, MG, TROP, BNP #### [address] Hematocrit (Bld) [Volume fraction] 36.1 % Low 38.8-50.0 [facility] Comment on above: Performed By: #### C MP, CBC, MG, TROP, BNP #### [address] Hemoglobin (Bld) [Mass/Vol] 11.8 g/dL Low 13.0-17.0 [facility] Comment on above: Performed By: #### C MP, CBC, MG, TROP, BNP #### [address] Lymphocytes (Bld) [#/Vol] 0.9 10*3/uL Low 1.00-4.8 [facility] Comment on above: Performed By: #### C MP, CBC, MG, TROP, BNP #### [address] Lymphocytes/100 WBC (Bld) 6.1 % Normal . [facility] Comment on above: Performed By: #### C MP, CBC, MG, TROP, BNP #### [address] MCH (RBC) [Entitic mass] 27.2 pg Low 27.5-35.2 [facility] Comment on above: Performed By: #### C MP, CBC, MG, TROP, BNP #### [address] MCV (RBC) [Entitic vol] 83.5 fL Normal 83.5-101 [facility] Comment on above: Performed By: #### C MP, CBC, MG, TROP, BNP #### [address] Mean Corpuscular HGB Conc 32.6 g/dL Normal 32.5-35.6 [facility] Comment on above: Performed By: #### C MP, CBC, MG, TROP, BNP #### [address] Monocytes (Bld) [#/Vol] 1.5 10*3/uL High 0.0-0.8 [facility] Comment on above: Performed By: #### C MP, CBC, MG, TROP, BNP #### [address] Monocytes/100 WBC (Bld) 10.1 % Normal . [facility] Comment on above: Performed By: #### C MP, CBC, MG, TROP, BNP #### [address] Neutrophils (Bld) [#/Vol] 12.3 10*3/uL High 1.8-7.7 [facility] Comment on above: Performed By: #### C MP, CBC, MG, TROP, BNP #### [address] Neutrophils/100 WBC (Bld) 80.1 % Normal . [facility] Comment on above: Performed By: #### C MP, CBC, MG, TROP, BNP #### [address] Nucleated RBC/100 WBC (Bld) [Ratio] 0.1 % Normal 0-0.5 [facility] Comment on above: Performed By: #### C MP, CBC, MG, TROP, BNP #### [address] Platelet mean volume (Bld) [Entitic vol] 7.3 fL Normal 6.6-10.1 [facility] Comment on above: Performed By: #### C MP, CBC, MG, TROP, BNP #### [facility] [address] [place] [address] Platelets (Bld) [#/Vol] 249 10*3/uL Normal 150-450 [facility] Comment on above: Performed By: #### C MP, CBC, MG, TROP, BNP #### [address] RBC (Bld) [#/Vol] 4.32 10*6/uL Normal 3.90-5.60 [facility] Comment on above: Performed By: #### C MP, CBC, MG, TROP, BNP #### [address] WBC (Bld) [#/Vol] 15.3 10*3/uL High 4.5-11.0 [facility] Comment on above: Performed By: #### C MP, CBC, MG, TROP, BNP #### [address] Comprehensive Metabolic Pane babatunde 08-18-2020 Albumin [Mass/Vol] 2.7 g/dL Low 3.2-5.5 [facility] Comment on above: Performed By: #### C MP, CBC, MG, TROP, BNP #### [address] Albumin/Globulin [Mass ratio] 0.6 {ratio} Normal [facility] Comment on above: Performed By: #### C MP, CBC, MG, TROP, BNP #### [address] ALP [Catalytic activity/Vol] 88 U/L Normal 32-92 [facility] Comment on above: Performed By: #### C MP, CBC, MG, TROP, BNP #### [address] ALT [Catalytic activity/Vol] 13 U/L Normal 10-60 [facility] Comment on above: Performed By: #### C MP, CBC, MG, TROP, BNP #### [facility] [address] AST [Catalytic activity/Vol] 16 U/L Normal 10-42 [facility] Comment on above: Performed By: #### C MP, CBC, MG, TROP, BNP #### [facility] [address] [place] [address] Bilirubin [Mass/Vol] 0.7 mg/dL Normal 0.3-1.2 [facility] Comment on above: Performed By: #### C MP, CBC, MG, TROP, BNP #### [address] Calcium [Mass/Vol] 8.9 mg/dL Normal 8.2-10.2 [facility] Comment on above: Performed By: #### C MP, CBC, MG, TROP, BNP #### [address] Chloride [Moles/Vol] 95 mmol/L Normal 95-114 [facility] Comment on above: Performed By: #### C MP, CBC, MG, TROP, BNP #### [facility] [address] [place] [address] CO2 [Moles/Vol] 22.6 mmol/L Normal 22.0-30.0 [facility] Comment on above: Performed By: #### C MP, CBC, MG, TROP, BNP #### [facility] [address] [place] [address] [place] Creatinine [Mass/Vol] 3.04 mg/dL High 0.64-1.27 [facility] Comment on above: Performed By: #### C MP, CBC, MG, TROP, BNP #### [facility] [address] [place] [address] [place] Creatinine Clr Calc Pharmacy 38.57 [facility] Comment on above: Performed By: #### C MP, CBC, MG, TROP, BNP #### [facility] [address] [place] [address] Estimated GFR ( Camilla 26 [facility] Comment on above: Result Comment: GFR estimated reference range: According to KDOQI guidelines, <60 ml/min/1.73m2 is sufficient to diagnose a patient with chronic kidney disease. Performed By: #### C MP, CBC, MG, TROP, BNP #### [facility] [address] Estimated GFR (Non- Am 21 Normal [facility] Comment on above: Performed By: #### C MP, CBC, MG, TROP, BNP #### [facility] [address] Globulin (S) [Mass/Vol] 4.4 g/dL [facility] Comment on above: Performed By: #### C MP, CBC, MG, TROP, BNP #### [address] Glucose [Mass/Vol] 512 mg/dL Off scale high 70-100 [facility] Comment on above: Result Comment: Resu lts called at 1659 on 08/18/20 Random Glucose Reference Range is dependent on time and content of last meal. Glucose of more than 200 mg/dL in a nonstressed, ambulatory subject supports the diagnosis of Diabetes Mellitus. ADA recommended reference range Performed By: #### C MP, CBC, MG, TROP, BNP #### [address] Potassium [Moles/Vol] 4.2 mmol/L Normal 3.5-5.1 [facility] Comment on above: Performed By: #### C MP, CBC, MG, TROP, BNP #### [address] Protein [Mass/Vol] 7.1 g/dL Normal 6.1-7.9 [facility] Comment on above: Performed By: #### C MP, CBC, MG, TROP, BNP #### [address] Sodium [Moles/Vol] 128 mmol/L Low 136-146 [facility] Comment on above: Performed By: #### C MP, CBC, MG, TROP, BNP #### [address] [place] [address] [place] Urea nitrogen [Mass/Vol] 27 mg/dL High 9- [facility] Comment on above: Performed By: #### C MP, CBC, MG, TROP, BNP #### [place] [id number] [facility] Creatinine and Glomerular fi ltration rate.predicted panel (S/P/Bld)on 08-18-2020 Creatinine [Mass/Vol] 3.04 mg/dL 0.64-1.27 [facility] ECG 12 lead ECGon 08-18-2020 ECG 12 lead ECG [facility] [place] [address] [place] [address] Electrocardiograph Report Signed Patient: Rashard Lyman MR#: [id number] : 1960 Acct:[id number] Age/Sex: 60 / M ADM Date: 08/18/20 Loc: Room: [address] [place] [address] Type: ADM IN Attending Dr: Eugene Morel [...] was found Confirmed by ADRIA PABON DO ([id number]) on 08/19/2020 10:02:40 AM Referred By: Electronically Signed By:ADRIA PABON DO Transcribed By: MUS Dictated By: Adria Pabon DO 08/18/20 1539 Signed By: 08/19/20 1002 Normal [facility] Eosinophils Auto (Bld) [#/Vo l]on 08-18-2020 Eosinophils (Bld) [#/Vol] 0.5 10*3/uL 0.0-0.45 [facility] Eosinophils/100 WBC Auto (Bl d)on 08-18-2020 Eosinophils/100 WBC (Bld) 3.4 % [facility] Erythrocyte distribution wid th Auto (RBC) [Ratio]on 08-18-2020 Erythrocyte distribution width (RBC) [Ratio] 16.3 % 12.0-14.8 [facility] Estimated glomerular filtrat ion rate (GFR) non- Americanon 08-18-2020 GFR/1.73 sq M.predicted among non-blacks MDRD (S/P/Bld) [Vol rate/Area] 21 mL/Min [facility] Globulin Calc (S) [Mass/Vol] on 08-18-2020 Globulin (S) [Mass/Vol] 4.4 g/dL [facility] Glucose Glucometer (BldC) [M ass/Vol]on 08-18-2020 Glucose [Mass/Vol] 388 mg/dL [facility] Comment on above: Random Glucose Refer ence Range is dependent on time and content of last meal. Glucose of more than 200 mg/dL in a nonstressed, ambulatory subject supports the diagnosis of Diabetes Mellitus. Glucose Poct Glucometerson 0 08-18-2020 Glucose [Mass/Vol] 388 mg/dL Normal [facility] Comment on above: Result Comment: Center om Glucose Reference Range is dependent on time and content of last meal. Glucose of more than 200 mg/dL in a nonstressed, ambulatory subject supports the diagnosis of Diabetes Mellitus. PERFORMED BY: [place] [address] PATHOLOGIST STAFFING ASSOCIATE JORDAN RODRIGUEZ M.D. Performed By: #### C MP, CBC, MG, TROP, BNP #### [address] Hematocrit Auto (Bld) [Volum e fraction]on 08-18-2020 Hematocrit (Bld) [Volume fraction] 36.1 % 38.8-50.0 [facility] Laboratory - Chemistry and C hemistry - challengeon 08-18-2020 CO2 [Moles/Vol] 25.7 mmol/L 24.0-29.0 [facility] HCO3 (Bld) [Moles/Vol] 24.3 mmol/L 23.0-29.0 [facility] Magnesium [Mass/Vol] 2.2 mg/dL 1.6-2.6 [facility] Natriuretic peptide B (Bld) [Mass/Vol] 48.0 pg/mL 5-100 [facility] Laboratory - Coagulationon 0 08-18-2020 PT Coag (PPP) [Time] 11.7 s 9.0-12.9 [facility] Laboratory - Hematology and Cell countson 08-18-2020 Nucleated RBC/100 WBC (Bld) [Ratio] 0.1 % 0-0.5 [facility] Lymphocytes Auto (Bld) [#/Vo l]on 08-18-2020 Lymphocytes (Bld) [#/Vol] 0.9 10*3/uL 1.00-4.8 [facility] Lymphocytes/100 WBC Auto (Bl d)on 08-18-2020 Lymphocytes/100 WBC (Bld) 6.1 % [facility] MCH Auto (RBC) [Entitic mass ]on 08-18-2020 MCH (RBC) [Entitic mass] 27.2 pg 27.5-35.2 [facility] MCHC Auto (RBC) [Mass/Vol]on 08-18-2020 MCHC (RBC) [Mass/Vol] 32.6 g/dL 32.5-35.6 [facility] MCV Auto (RBC) [Entitic vol] on 08-18-2020 MCV (RBC) [Entitic vol] 83.5 fL 83.5-101 [facility] Magnesiumon 08-18-2020 Magnesium [Mass/Vol] 2.2 mg/dL Normal 1.6-2.6 [facility] Comment on above: Result Comment: PERF ORMED BY: [place] [address] PATHOLOGIST STAFFING ASSOCIATE JORDAN RODRIGUEZ M.D. Performed By: #### C MP, CBC, MG, TROP, BNP #### [address] Monocytes Auto (Bld) [#/Vol] on 08-18-2020 Monocytes (Bld) [#/Vol] 1.5 10*3/uL 0.0-0.8 [facility] Monocytes/100 WBC Auto (Bld) on 08-18-2020 Monocytes/100 WBC (Bld) 10.1 % [facility] Neutrophils Auto (Bld) [#/Vo l]on 08-18-2020 Neutrophils (Bld) [#/Vol] 12.3 10*3/uL 1.8-7.7 [facility] Neutrophils/100 WBC Auto (Bl d)on 08-18-2020 Neutrophils/100 WBC (Bld) 80.1 % [facility] No Panel Informationon 08-18 Respiratory Panel (PCR) [facility] Blood Gas Critical Value See comment [facility] Comment on above: Critical Value fonseca d on: 08/18/2020 at 17:44 Blood Gas Sample Site Venous [facility] FiO2 21 % [facility] Venous Blood Base Excess -1.5 mmol/L -3.0-3.0 [facility] Venous Blood Oxygen Content 4.1 mmol/L 6.6-9.7 [facility] Venous Blood Oxygen Saturation 53.3 % 73.0-76.0 [facility] Venous Blood Partial Pressure CO2 45.2 mm[Hg] 38.0-50.0 [facility] Venous Blood Partial Pressure O2 24.4 mm[Hg] 35.0-45.0 [facility] Venous Blood pH 7.35 7.32-7.43 [facility] Estimated GFR () 26 mL/Min [facility] Comment on above: GFR estimated refere nce range: According to KDOQI guidelines, <60 ml/min/1.73m2 is sufficient to diagnose a patient with chronic kidney disease. Pharmacy Creatinine Clearance (Chem 38.57 [facility] Platelet mean volume Auto (B ld) [Entitic vol]on 08-18-2020 Platelet mean volume (Bld) [Entitic vol] 7.3 fL 6.6-10.1 [facility] Platelet poor plasma interna tional normalized ratio (INR) by coagulation assay (relaton 08-18-2020 INR Coag (PPP) [Relative time] 1.0 {INR} [facility] Comment on above: INR Therapeutic Rang e [...] 08-18-2020 Platelets (Bld) [#/Vol] 249 10*3/uL 150-450 [facility] Protein [Mass/volume] in Ser um or Plasmaon 08-18-2020 Protein [Mass/Vol] 7.1 g/dL 6.1-7.9 [facility] RBC Auto (Bld) [#/Vol]on RBC (Bld) [#/Vol] 4.32 10*6/uL 3.90-5.60 [facility] Respiratory (Upper) Panel, P CRon 08-18-2020 Respiratory (Upper) Panel, PCR Adenovirus Not detected Bordetella parapertussis Not detected Chlamydia pneumoniae Not detected Coronavirus 229E Not detected Coronavirus HKU1 Not detected Coronavirus NL63 Not detected Coronavirus OC43 Not detected COVID19 Blank Space -- COVID19 Disclaimer This test was developed and its performance COVID19 Disclaimer characteristics determined by [employer], COVID19 Disclaimer Disease-2019 during the Public Health [...] sooner. COVID19 [employer]claimer [employer]. and validated at [facility] COVID19 [facility]. This has not been FDA cleared or [...] COVID-19 Detected/Not Detected Not detected PERFORMED BY: [place] [address] PATHOLOGIST STAFFING ASSOCIATE JORDAN RODRIGUEZ M.D. Normal [facility] Comment on above: Performed By: #### C MP, CBC, MG, TROP, BNP #### [address] Serum or plasma alanine gomez otransferase measurement without P-5'-P (enzymatic activion 08-18-2020 ALT No additional P-5'-P [Catalytic activity/Vol] 13 U/L 1060 [facility] Serum or plasma albumin/glob ulin mass ratioon 08-18-2020 Albumin/Globulin [Mass ratio] 0.6 {ratio} [facility] Serum or plasma alkaline kayode sphatase measurement (enzymatic activity/volume)on 08-18-2020 ALP [Catalytic activity/Vol] 88 U/L 3292 [facility] Serum or plasma aspartate am inotransferase measurement (enzymatic activity/volume)on 08-18-2020 AST [Catalytic activity/Vol] 16 U/L 1042 [facility] Serum or plasma calcium joel urement (mass/volume)on 08-18-2020 Calcium [Mass/Vol] 8.9 mg/dL 8.2-10.2 [facility] Serum or plasma cardiac trop onin I measurement (mass/volume)on 08-18-2020 Troponin I.cardiac [Mass/Vol] ng/mL 0-0.02 [facility] Comment on above: HÉCTOR [place] Cut off value > or equal to 0.03 ng/mL in conjunction with clinical conditions of myocardial infarction.(www.escardio.org/guidelines) Serum or plasma chloride farza surement (moles/volume)on 08-18-2020 Chloride [Moles/Vol] 95 mmol/L 95-114 [facility] Serum or plasma glucose joel urement (mass/volume)on 08-18-2020 Glucose [Mass/Vol] 512 mg/dL 70-100 [facility] Comment on above: Results calledat 165 9 on 08/18/20 ADA recommended reference rangeRandom Glucose Reference Range is dependent on time and content of last meal. Glucose of more than 200 mg/dL in a nonstressed, ambulatory subject supports the diagnosis of Diabetes Mellitus. Serum or plasma potassium me asurement (moles/volume)on 08-18-2020 Potassium [Moles/Vol] 4.2 mmol/L 3.5-5.1 [facility] Serum or plasma sodium measu rement (moles/volume)on 08-18-2020 Sodium [Moles/Vol] 128 mmol/L 136-146 [facility] Serum or plasma total biliru bin measurement (mass/volume)on 08-18-2020 Bilirubin [Mass/Vol] 0.7 mg/dL 0.3-1.2 [facility] Serum or plasma total carbon dioxide measurement (moles/volume)on 08-18-2020 CO2 [Moles/Vol] 22.6 mmol/L 22.0-30.0 [facility] Serum or plasma urea nitroge n measurement (mass/volume)on 08-18-2020 Urea nitrogen [Mass/Vol] 27 mg/dL 01-19 [facility] Liat Ag Negativeon 08-19-19 Liat Ag Negative Negative Normal Negative [facility] Comment on above: Result Comment: This is a duplicate Liat SARS Antigen (AGUSTINA) result to be used for statistical tracking purpose only. PERFORMED BY: [place] [address] PATHOLOGIST STAFFING ASSOCIATE JORDAN RODRIGUEZ M.D. Performed By: #### C OVID-19 LIAT, SOFIANEG #### [facility] [address] [place] [address] Troponin I(TnI)on 08-18-2020 Troponin I.cardiac [Mass/Vol] ng/mL Normal 0-0.02 [facility] Comment on above: Result Comment: HÉCTOR [place] Cut off value > or equal to 0.03 ng/mL in conjunction with clinical conditions of myocardial infarction. (www.escardio.org/guidelines) PERFORMED BY: [place] [address] PATHOLOGIST STAFFING ASSOCIATE JORDAN RODRIGUEZ M.D. Performed By: #### C MP, CBC, MG, TROP, BNP #### [facility] [address] [place] [address] Venous Blood Gason CO2 [Moles/Vol] 25.7 mmol/L Normal 24.0-29.0 [facility] Comment on above: Performed By: #### V BG #### Point of Care testing , HCO3 (Bld) [Moles/Vol] 24.3 mmol/L Normal 23.0-29.0 [facility] Comment on above: Performed By: #### V BG #### Point of Care testing , Respiratory Critical Normal [facility] Comment on above: Result Comment: Crit ical Value called on: 08/18/2020 at 17:44 PERFORMED BY: [place] [address] PATHOLOGIST STAFFING ASSOCIATE JORDAN RODRIGUEZ M.D. Performed By: #### V BG #### Point of Care testing , VBG Base Excess -1.5 mmol/L Normal -3.0-3.0 [facility] Comment on above: Performed By: #### V BG #### Point of Care testing , VBG Draw Site Venous Normal [facility] Comment on above: Performed By: #### V BG #### Point of Care testing , VBG Frac Inspired O2 21 % Normal [facility] Comment on above: Performed By: #### V BG #### Point of Care testing , VBG O2 Content 4.1 mmol/L Low 6.6-9.7 [facility] Comment on above: Performed By: #### V BG #### Point of Care testing , VBG Oxygen Saturation 53.3 % Off scale low 73.0-76.0 [facility] Comment on above: Performed By: #### V BG #### Point of Care testing , VBG PCO2 45.2 mm[Hg] Normal 38.0-50.0 [facility] Comment on above: Performed By: #### V BG #### Point of Care testing , VBG PH Venous PH 7.35 Normal 7.32-7.43 [facility] Comment on above: Performed By: #### V BG #### Point of Care testing , VBG PO2 24.4 mm[Hg] Low 35.0-45.0 [facility] Comment on above: Performed By: #### V BG #### Point of Care testing , XR chest 1V portableon 08-18 XR chest 1V portable [facility] [place] [address] XRay Report Signed Patient: Rashard Lyman MR#: [id number] : 1960 Acct:[id number] Age/Sex: 60 / M ADM Date: 08/18/20 Loc: ER Room: Type: [facility] ER Attending Dr: Ordering Provider: [...] Chitra Brantley M.D.08/18/2020 4:24 PM Dictation Location: [place] [address] Transcribed By: [facility] 08/18/201623 Dictated By: Chitra Brantley MD 08/18/201622 Signed By: 08/18/201623 [facility] CBC COMPLETE BLOOD COUNTon 0 07-22-2020 Erythrocyte distribution width (RBC) [Ratio] 15.0 % Normal 11.5-15.0 [facility] Comment on above: Order Comment: No: D o not add to previous draw Performed By: #### 8 5499 #### [facility] [address] [place] [address], [facility] Hematocrit (Bld) [Volume fraction] 32.4 % Low 39.0-50.0 [facility] Comment on above: Order Comment: No: D o not add to previous draw Performed By: #### 8 5499 #### [facility] [address] [place] [address], [facility] Hemoglobin (Bld) [Mass/Vol] 9.5 g/dL Low 13.0-17.0 [facility] Comment on above: Order Comment: No: D o not add to previous draw Performed By: #### 8 [id number] #### [facility] [address] [place] [address], [facility] MCH (RBC) [Entitic mass] 26.7 pg Low 27.0-33.0 [facility] Comment on above: Order Comment: No: D o not add to previous draw Performed By: #### 8 [id number] #### [facility] [address] [place] [address], [facility] MCHC (RBC) [Mass/Vol] 29.3 g/dL Low 32.0-35.0 [facility] Comment on above: Order Comment: No: D o not add to previous draw Performed By: #### 8 [id number] #### [facility] [address] [place] [address], [facility] MCV (RBC) [Entitic vol] 91.0 fL Normal 82.0-98.0 [facility] Comment on above: Order Comment: No: D o not add to previous draw Performed By: #### 8 [id number] #### [facility] [address] [place] [address], [facility] Nucleated RBC/100 WBC (Bld) [Ratio] 0 % Normal 0-0 [facility] Comment on above: Order Comment: No: D o not add to previous draw Performed By: #### 8 [id number] #### [facility] [address] [place] [address], [facility] PLAT CNT 276 10*3/uL Normal 150-400 [facility] Comment on above: Order Comment: No: D o not add to previous draw Performed By: #### 8 [id number] #### [facility] [address] [place] [address], [facility] RBC (Bld) [#/Vol] 3.56 10*6/uL Low 4.20-5.70 [facility] Comment on above: Order Comment: No: D o not add to previous draw Performed By: #### 8 [id number] #### [facility] [address] [place] [address], [facility] WBC (Bld) [#/Vol] 8.61 10*3/uL Normal 4.00-10.60 [facility] Comment on above: Order Comment: No: D o not add to previous draw Performed By: #### 8 [id number] #### [facility] [address] [place] [address], [facility] COMP METABOLIC PANELon 07-22 Albumin [Mass/Vol] 2.7 g/dL Low 3.5-5.7 [facility] Comment on above: Order Comment: No: D o not add to previous draw Performed By: #### 8 [id number] #### [facility] [address] [place] [address], [place] ALKALINE PHOSPH 70 IU/L Normal 34-104 [facility] Comment on above: Order Comment: No: D o not add to previous draw Performed By: #### 8 [id number] #### [facility] [address] [place] [address], [place] ALT [Catalytic activity/Vol] 4 U/L Low 7-52 [facility] Comment on above: Order Comment: No: D o not add to previous draw Performed By: #### 8 [id number] #### [facility] [address] [place] [address], [place] AST [Catalytic activity/Vol] 15 U/L Normal 13-39 [facility] Comment on above: Order Comment: No: D o not add to previous draw Performed By: #### 8 [id number] #### [facility] [address] [place] [address], [place] Bilirubin [Mass/Vol] 0.2 mg/dL Low 0.3-1.0 [facility] Comment on above: Order Comment: No: D o not add to previous draw Performed By: #### 8 [id number] #### [facility] [address] [place] [address], [place] Calcium [Mass/Vol] 8.9 mg/dL Normal 8.6-10.3 [facility] Comment on above: Order Comment: No: D o not add to previous draw Performed By: #### 8 [id number] #### [facility] [address] [place] [address], [place] Chloride [Moles/Vol] 109 mmol/L High 98-107 [facility] Comment on above: Order Comment: No: D o not add to previous draw Performed By: #### 8 [id number] #### [facility] [address] [place] [address], [place] CO2 [Moles/Vol] 24 mmol/L Normal 21-31 [facility] Comment on above: Order Comment: No: D o not add to previous draw Performed By: #### 8 [id number] #### [facility] [address] [place] [address], [place] Creatinine [Mass/Vol] 3.39 mg/dL High 0.70-1.30 [facility] Comment on above: Order Comment: No: D o not add to previous draw Performed By: #### 8 [id number] #### [facility] [address] [place] [address], [place] eGFR- 23 ml/min/1.73sq m Abnormal >60 [facility] Comment on above: Order Comment: No: D o not add to previous draw Performed By: #### 8 [id number] #### [facility] [address] [place] [address], [place] eGFR- non- 19 ml/min/1.73sq m Abnormal >60 [facility] Comment on above: Order Comment: No: D o not add to previous draw Performed By: #### 8 5499 #### [facility] [address] [place] [address], [place] Glucose [Mass/Vol] 90 mg/dL Normal 70-100 [facility] Comment on above: Order Comment: No: D o not add to previous draw Performed By: #### 8 [id number] #### [facility] [address] [place] [address], [place] Potassium [Moles/Vol] 4.4 mmol/L Normal 3.5-5.1 [facility] Comment on above: Order Comment: No: D o not add to previous draw Performed By: #### 8 [id number] #### [facility] [address] [place] [address], [place] Protein [Mass/Vol] 5.9 g/dL Low 6.0-8.3 [facility] Comment on above: Order Comment: No: D o not add to previous draw Performed By: #### 8 [id number] #### [facility] [address] [place] [address], [place] Sodium [Moles/Vol] 140 mmol/L Normal 136-145 [facility] Comment on above: Order Comment: No: D o not add to previous draw Performed By: #### 8 [id number] #### [facility] [address] [place] [address], [place] Urea nitrogen [Mass/Vol] 35 mg/dL High 7-25 [facility] Comment on above: Order Comment: No: D o not add to previous draw Performed By: #### 8 [id number] #### [facility] [address] [place] [address], [place] POC GLUCOSE LABon 07-22-2020 Glucose [Mass/Vol] 192 mg/dL High 70-100 [facility] Comment on above: Performed By: #### 8 [id number] #### [facility] [address] [place] [address], [place] Glucose [Mass/Vol] 95 mg/dL Normal 70-100 [facility] Comment on above: Performed By: #### 5 7307, 08[address] #### [facility] [address] [place] [address], [place] Glucose [Mass/Vol] 123 mg/dL High 70-100 [facility] Comment on above: Performed By: #### 8 5499 ####[facility] [place] [address], [place] ARTERIAL BLOOD GAS WITH ICAo n 07-21-2020 BASE EXCESS -2 mmol/L Normal -2-3 [facility] Comment on above: Performed By: #### 8 [id number] #### [facility] [address] [place] [address], [place] [employer] FOCUS Normal [facility] Comment on above: Performed By: #### 8 [id number] #### [facility] [address] [place] [address], [place] HCO3 (Bld) [Moles/Vol] 24 mmol/L Normal 21-28 [facility] Comment on above: Performed By: #### 8 [id number] #### [facility] [address] [place] [address], [place] IONIZED CALCIUM 1.25 mmol/L Normal 1.13-1.32 [facility] Comment on above: Performed By: #### 8 [id number] #### [facility] [address] [place] [address], [place] LPM 4.0 LPM Normal [facility] Comment on above: Performed By: #### 8 [id number] #### [facility] [address] [place] [address], [place] MODALITY BIPAP Normal [facility] Comment on above: Performed By: #### 8 [id number] #### [facility] [address] [place] [address], [place] Oxygen (Bld) [Partial pressure] 91 mm[Hg] Normal 83-108 [facility] Comment on above: Performed By: #### 8 [id number] #### [facility] [address] [place] [address], [place] Oxygen saturation in Blood 95.9 % Normal 94.0-97.0 [facility] Comment on above: Performed By: #### 8 5499 #### [facility] [address] [place] [address], [place] PCO2 47 mmHg High 35-45 [facility] Comment on above: Performed By: #### 8 5499 #### [facility] [address] [place] [address], [place] PEEP 8.0 CMH20 Normal [facility] Comment on above: Performed By: #### 8 [id number] #### [facility] [address] [place] [address], [facility] pH (Bld) 7.32 [pH] Low 7.35-7.45 [facility] Comment on above: Performed By: #### 8 [id number] #### [facility] [address] [place] [address], [facility] PRESSURE SUPPORT 16 Normal [facility] Comment on above: Performed By: #### 8 [id number] #### [facility] [address] [place] [address], [facility] BASE EXCESS -3 mmol/L Low -2-3 [facility] Comment on above: Performed By: #### 3 0318 #### [facility] [address] [place] [address], [facility] [employer]ERY SYSTEMS NASAL CANNULA Normal [facility] Comment on above: Performed By: #### 3 0318 #### [facility] [address] [place] [address], [facility] HCO3 (Bld) [Moles/Vol] 25 mmol/L Normal 21-28 [facility] Comment on above: Performed By: #### 3 0318 #### [facility] [address] [place] [address], [facility] IONIZED CALCIUM 1.26 mmol/L Normal 1.13-1.32 [facility] Comment on above: Performed By: #### 3 0318 #### [facility] [address] [place] [address], [place] LPM 2.0 LPM Normal [facility] Comment on above: Performed By: #### 3 0318 #### [facility] [address] [place] [address], [facility] Oxygen (Bld) [Partial pressure] 92 mm[Hg] Normal 83-108 [facility] Comment on above: Performed By: #### 3 0318 #### [facility] [address] [place] [address], [facility] Oxygen saturation in Blood 95.7 % Normal 94.0-97.0 [facility] Comment on above: Performed By: #### 3 8 #### [facility] [address] [place] [address], [place] PCO2 54 mmHg High 35-45 [facility] Comment on above: Performed By: #### 3 8 #### [facility] [address] [place] [address], [place] pH (Bld) 7.27 [pH] Low 7.35-7.45 [facility] Comment on above: Performed By: #### 3 8 #### [facility] [address] [place] [address], [facility] BASIC METABOLIC PANELon - Calcium [Mass/Vol] 9.0 mg/dL Normal 8.6-10.3 [facility] Comment on above: Order Comment: No: D o not add to previous drawPt not in room rn will return when back. Performed By: #### 3 1943 #### [facility] [address] [place] [address], [place] Chloride [Moles/Vol] 106 mmol/L Normal 98-107 [facility] Comment on above: Order Comment: No: D o not add to previous drawPt not in room rn will return when back. Performed By: #### 3 1943 #### [facility] [address] [place] [address], [place] CO2 [Moles/Vol] 25 mmol/L Normal 21-31 [facility] Comment on above: Order Comment: No: D o not add to previous drawPt not in room rn will return when back. Performed By: #### 3 1943 #### [facility] [address] [place] [address], [place] Creatinine [Mass/Vol] 3.75 mg/dL High 0.70-1.30 [facility] Comment on above: Order Comment: No: D o not add to previous drawPt not in room rn will return when back. Performed By: #### 3 1943 #### [facility] [address] [place] [address], [facility] eGFR- 20 ml/min/1.73sq m Abnormal >60 [facility] Comment on above: Order Comment: No: D o not add to previous drawPt not in room rn will return when back. Performed By: #### 3 1943 #### [facility] [address] [place] [address], [facility] eGFR- non- 17 ml/min/1.73sq m Abnormal >60 [facility] Comment on above: Order Comment: No: D o not add to previous drawPt not in room rn will return when back. Performed By: #### 3 1943 #### [facility] [address] [place] [address], [facility] Glucose [Mass/Vol] 132 mg/dL High 70-100 [facility] Comment on above: Order Comment: No: D o not add to previous drawPt not in room rn will return when back. Performed By: #### 3 1943 #### [facility] [address] [place] [address], [facility] Potassium [Moles/Vol] 5.0 mmol/L Normal 3.5-5.1 [facility] Comment on above: Order Comment: No: D o not add to previous drawPt not in room rn will return when back. Performed By: #### 3 1943 #### [facility] [address] [place] [address], [facility] Sodium [Moles/Vol] 138 mmol/L Normal 136-145 [facility] Comment on above: Order Comment: No: D o not add to previous drawPt not in room rn will return when back. Performed By: #### 3 1943 #### [facility] [address] [place] [address], [facility] Urea nitrogen [Mass/Vol] 37 mg/dL High 7-25 [facility] Comment on above: Order Comment: No: D o not add to previous drawPt not in room rn will return when back. Performed By: #### 3 1944 #### [facility] [address] [place] [address], [facility] CBC COMPLETE BLOOD COUNTon 07-21-2020 Erythrocyte distribution width (RBC) [Ratio] 15.0 % Normal 11.5-15.0 [facility] Comment on above: Order Comment: No: D o not add to previous drawPt not in room rn will return when back. Performed By: #### 8 [id number] #### [facility] [address] [place] [address], [facility] Hematocrit (Bld) [Volume fraction] 33.9 % Low 39.0-50.0 [facility] Comment on above: Order Comment: No: D o not add to previous drawPt not in room rn will return when back. Performed By: #### 8 [id number] #### [facility] [address] [place] [address], [facility] Hemoglobin (Bld) [Mass/Vol] 9.9 g/dL Low 13.0-17.0 [facility] Comment on above: Order Comment: No: D o not add to previous drawPt not in room rn will return when back. Performed By: #### 8 [id number] #### [facility] [address] [place] [address], [facility] MCH (RBC) [Entitic mass] 26.9 pg Low 27.0-33.0 [facility] Comment on above: Order Comment: No: D o not add to previous drawPt not in room rn will return when back. Performed By: #### 8 [id number] #### [facility] [address] [place] [address], [facility] MCHC (RBC) [Mass/Vol] 29.2 g/dL Low 32.0-35.0 [facility] Comment on above: Order Comment: No: D o not add to previous drawPt not in room rn will return when back. Performed By: #### 8 [id number] #### [facility] [address] [facility] [place] [address], [facility] MCV (RBC) [Entitic vol] 92.1 fL Normal 82.0-98.0 [facility] Comment on above: Order Comment: No: D o not add to previous drawPt not in room rn will return when back. Performed By: #### 8 [id number] #### [facility] [address] Nucleated RBC/100 WBC (Bld) [Ratio] 0 % Normal 0-0 [facility] Comment on above: Order Comment: No: D o not add to previous drawPt not in room rn will return when back. Performed By: #### 8 [id number] #### [facility] [address] [facility] [place] [address], [facility] PLAT CNT 288 10*3/uL Normal 150-400 [facility] Comment on above: Order Comment: No: D o not add to previous drawPt not in room rn will return when back. Performed By: #### 8 [id number] #### [facility] [address] [facility] [place] [address], [facility] RBC (Bld) [#/Vol] 3.68 10*6/uL Low 4.20-5.70 [facility] Comment on above: Order Comment: No: D o not add to previous drawPt not in room rn will return when back. Performed By: #### 8 [id number] #### [facility] [address] [facility] [place] [address], [facility] WBC (Bld) [#/Vol] 9.51 10*3/uL Normal 4.00-10.60 [facility] Comment on above: Order Comment: No: D o not add to previous drawPt not in room rn will return when back. Performed By: #### 8 [id number] #### [address] CHEST WO CONTRASTon 07-21 CT CHEST WO CONTRAST [facility] Department of Radiology [address] [place] [id number] Patient Name: RASHARD LYMAN : 1960 Sex: M Age: Race: White Pt. Location: [id number] Patient Status: I Ordered Date: 07/21/2020 6:00:00 [...] pneumonia. Electronically signed: Manuel Saldaña. Transcribed by: [email or web address], User Resident: Electronically Signed by: MANUEL SALDAÑA @ 07/21/2020 08:38 AM Normal [facility] Comment on above: Order Comment: Left Peural Effusion POC GLUCOSE LABon 07-21-2020 Glucose [Mass/Vol] 134 mg/dL High 70-100 [facility] Comment on above: Performed By: #### 5 0103 #### [facility] [address] [facility] [place] [address], [place] Glucose [Mass/Vol] 88 mg/dL Normal 70-100 [facility] Comment on above: Performed By: #### 8 5499 #### [facility] [address] [place] [address], [place] Glucose [Mass/Vol] 110 mg/dL High 70-100 [facility] Comment on above: Performed By: #### 8 5499 #### [facility] [address] [place] [address], [place] Glucose [Mass/Vol] 118 mg/dL High 70-100 [facility] Comment on above: Performed By: #### 5 7307, [address]25[address] #### [facility] [address] [place] [address], [facility] Glucose [Mass/Vol] 137 mg/dL High 70-100 [facility] Comment on above: Performed By: #### 5 7307, 65803 #### [facility] [address] [place] [address], [facility] BASIC METABOLIC PANELon 03-2 Calcium [Mass/Vol] 8.4 mg/dL Low 8.6-10.3 [facility] Comment on above: Order Comment: No: D o not add to previous draw Performed By: #### 8 5499 #### [facility] [address] [place] [address], [facility] Chloride [Moles/Vol] 107 mmol/L Normal 98-107 [facility] Comment on above: Order Comment: No: D o not add to previous draw Performed By: #### 8 5499 #### [facility] [address] [place] [address], [facility] CO2 [Moles/Vol] 23 mmol/L Normal 21-31 [facility] Comment on above: Order Comment: No: D o not add to previous draw Performed By: #### 8 5499 #### [facility] [address] [place] [address], [place] Creatinine [Mass/Vol] 3.95 mg/dL High 0.70-1.30 [facility] Comment on above: Order Comment: No: D o not add to previous draw Performed By: #### 8 5499 #### [facility] [address] [place] [address], [place] eGFR- 19 ml/min/1.73sq m Abnormal >60 [facility] Comment on above: Order Comment: No: D o not add to previous draw Performed By: #### 8 5499 #### [facility] [address] [place] [address], [place] eGFR- non- 16 ml/min/1.73sq m Abnormal >60 [facility] Comment on above: Order Comment: No: D o not add to previous draw Performed By: #### 8 5499 #### [facility] [address] [place] [address], [facility] Glucose [Mass/Vol] 110 mg/dL High 70-100 [facility] Comment on above: Order Comment: No: D o not add to previous draw Performed By: #### 8 5499 #### [facility] [address] [place] [address], [facility] Potassium [Moles/Vol] 4.9 mmol/L Normal 3.5-5.1 [facility] Comment on above: Order Comment: No: D o not add to previous draw Performed By: #### 8 [id number] #### [facility] [address] [place] [id number], [facility] Sodium [Moles/Vol] 137 mmol/L Normal 136-145 [facility] Comment on above: Order Comment: No: D o not add to previous draw Performed By: #### 8 5499 #### [facility] [address] [place] [address], [facility] Urea nitrogen [Mass/Vol] 37 mg/dL High 7-25 [facility] Comment on above: Order Comment: No: D o not add to previous draw Performed By: #### 8 5499 #### [facility] [address] [place] [address], [facility] CBC W/DIFFon 07-20-2020 ABS IMM GRANS 0.1 10*3/uL Normal 0.0-0.2 [facility] Comment on above: Order Comment: No: D o not add to previous draw Performed By: #### 8 [id number] #### [facility] [address] [place] [id number], [facility] ABS NEUTROPHILS 5.9 10*3/uL Normal 1.6-7.6 [facility] Comment on above: Order Comment: No: D o not add to previous draw Performed By: #### 8 5499 #### [facility] [address] [place] [address], [facility] Basophils (Bld) [#/Vol] 0.1 10*3/uL Normal 0.0-0.2 [facility] Comment on above: Order Comment: No: D o not add to previous draw Performed By: #### 8 [id number] #### [facility] [address] [place] [address], [place] Basophils/100 WBC (Bld) 1.0 % Normal 0.0-1.0 [facility] Comment on above: Order Comment: No: D o not add to previous draw Performed By: #### 8 5499 #### [facility] [address] [place] [address], [facility] Eosinophils (Bld) [#/Vol] 0.4 10*3/uL Normal 0.0-0.5 [facility] Comment on above: Order Comment: No: D o not add to previous draw Performed By: #### 8 5499 #### [facility] [address] [place] [address], [facility] Eosinophils/100 WBC (Bld) 5.1 % Normal 0.0-6.0 [facility] Comment on above: Order Comment: No: D o not add to previous draw Performed By: #### 8 [id number] #### [facility] [address] [place] [address], [facility] Erythrocyte distribution width (RBC) [Ratio] 15.4 % High 11.5-15.0 [facility] Comment on above: Order Comment: No: D o not add to previous draw Performed By: #### 8 [id number] #### [facility] [address] [place] [id number], [facility] Hematocrit (Bld) [Volume fraction] 35.7 % Low 39.0-50.0 [facility] Comment on above: Order Comment: No: D o not add to previous draw Performed By: #### 8 [id number] #### [facility] [address] [facility] [address], [facility] Hemoglobin (Bld) [Mass/Vol] 10.3 g/dL Low 13.0-17.0 [facility] Comment on above: Order Comment: No: D o not add to previous draw Performed By: #### 8 [id number] #### [facility] [address] [facility] [place] [address], [facility] IMM PLATELET FRAC 0.4 % Low 0.8-6.3 [facility] Comment on above: Order Comment: No: D o not add to previous draw Performed By: #### 8 [id number] #### [facility] [address] [facility] [place] [address], [facility] IMMATURE GRANS 1.1 % High 0.0-1.0 [facility] Comment on above: Order Comment: No: D o not add to previous draw Performed By: #### 8 [id number] #### [facility] [address] [place] [address], [facility] Lymphocytes (Bld) [#/Vol] 0.8 10*3/uL Low 1.2-4.0 [facility] Comment on above: Order Comment: No: D o not add to previous draw Performed By: #### 8 [id number] #### [facility] [address] [facility] [place] [address], [facility] Lymphocytes/100 WBC (Bld) 9.3 % Low 20.0-45.0 [facility] Comment on above: Order Comment: No: D o not add to previous draw Performed By: #### 8 [id number] #### [facility] [address] [place] [address], [facility] MCH (RBC) [Entitic mass] 27.4 pg Normal 27.0-33.0 [facility] Comment on above: Order Comment: No: D o not add to previous draw Performed By: #### 8 [id number] #### [facility] [address] [place] [address], [facility] MCHC (RBC) [Mass/Vol] 28.9 g/dL Low 32.0-35.0 [facility] Comment on above: Order Comment: No: D o not add to previous draw Performed By: #### 8 [id number] #### [facility] [address] [place] [id number], [facility] MCV (RBC) [Entitic vol] 94.9 fL Normal 82.0-98.0 [facility] Comment on above: Order Comment: No: D o not add to previous draw Performed By: #### 8 [id number] #### [facility] [address] [place] [address], [facility] Monocytes (Bld) [#/Vol] 1.1 10*3/uL High 0.1-1.0 [facility] Comment on above: Order Comment: No: D o not add to previous draw Performed By: #### 8 [id number] #### [facility] [address] [place] [address], [facility] MONOS 12.9 % High 5.0-12.0 [facility] Comment on above: Order Comment: No: D o not add to previous draw Performed By: #### 8 [id number] #### [facility] [address] [place] [address], [facility] Neutrophils/100 WBC (Bld) 70.6 % Normal 40.0-72.0 [facility] Comment on above: Order Comment: No: D o not add to previous draw Performed By: #### 8 [id number] #### [facility] [address] [place] [id number], [facility] Nucleated RBC/100 WBC (Bld) [Ratio] 0 % Normal 0-0 [facility] Comment on above: Order Comment: No: D o not add to previous draw Performed By: #### 8 [id number] #### [facility] [address] [place] [address], [facility] PLAT ESTIMATE Normal Normal [facility] Comment on above: Order Comment: No: D o not add to previous draw Result Comment: EDTA smear shows platelet clumping, see platelet estimate Performed By: #### 8 [id number] #### [facility] [address] [place] [address], [facility] RBC (Bld) [#/Vol] 3.76 10*6/uL Low 4.20-5.70 [facility] Comment on above: Order Comment: No: D o not add to previous draw Performed By: #### 8 [id number] #### [facility] [address] [facility] [place] [address], [facility] WBC (Bld) [#/Vol] 8.30 10*3/uL Normal 4.00-10.60 [facility] Comment on above: Order Comment: No: D o not add to previous draw Performed By: #### 8 [id number] #### [facility] [address] [facility] [place] [address], [facility] POC GLUCOSE LABon 07-20-2020 Glucose [Mass/Vol] 110 mg/dL High 70-100 [facility] Comment on above: Performed By: #### 5 0103 #### [facility] [address] [facility] [place] [address], [facility] Glucose [Mass/Vol] 124 mg/dL High 70-100 [facility] Comment on above: Performed By: #### 5 0103 #### [facility] [address] [facility] [place] [address], [facility] Glucose [Mass/Vol] 111 mg/dL High 70-100 [facility] Comment on above: Performed By: #### 5 7307, 28398 #### [facility] [address] [place] [address], [facility] PORTABLE CHEST 1 VIEWon 06-28 PORTABLE CHEST 1 VIEW [facility] Department of Radiology [address] [place] [id number] Patient Name: RASHARD LYMAN : 1960 Sex: M Age: Race: White Pt. Location: [id number] Patient Status: I Ordered Date: 07/20/2020 6:00:00 [...] unchanged Electronically signed: Manuel Saldaña. Transcribed by: [id number], User Resident: Electronically Signed by: MANUEL SALDAÑA @ 07/20/2020 09:07 AM Normal [facility] Comment on above: Order Comment: Evalu ate for Effusion BASIC METABOLIC PANELon 03-2 Calcium [Mass/Vol] 8.4 mg/dL Low 8.6-10.3 [facility] Comment on above: Order Comment: No: D o not add to previous draw Performed By: #### 3 1943 #### [facility] [address] [place] [address], [place] Chloride [Moles/Vol] 104 mmol/L Normal 98-107 [facility] Comment on above: Order Comment: No: D o not add to previous draw Performed By: #### 3 1943 #### [facility] [address] [place] [address], [place] CO2 [Moles/Vol] 24 mmol/L Normal 21-31 [facility] Comment on above: Order Comment: No: D o not add to previous draw Performed By: #### 3 1943 #### [facility] [address] [place] [address], [place] Creatinine [Mass/Vol] 4.15 mg/dL High 0.70-1.30 [facility] Comment on above: Order Comment: No: D o not add to previous draw Performed By: #### 3 1943 #### [facility] [address] [place] [address], [place] eGFR- 18 ml/min/1.73sq m Abnormal >60 [facility] Comment on above: Order Comment: No: D o not add to previous draw Performed By: #### 3 1943 #### [facility] [address] [place] [address], [place] eGFR- non- 15 ml/min/1.73sq m Abnormal >60 [facility] Comment on above: Order Comment: No: D o not add to previous draw Performed By: #### 3 1943 #### [facility] [address] [place] [address], [place] Glucose [Mass/Vol] 180 mg/dL High 70-100 [facility] Comment on above: Order Comment: No: D o not add to previous draw Performed By: #### 3 1943 #### [facility] [address] [place] [address], [facility] Potassium [Moles/Vol] 4.4 mmol/L Normal 3.5-5.1 [facility] Comment on above: Order Comment: No: D o not add to previous draw Performed By: #### 3 1943 #### [facility] [address] [place] [address], [facility] Sodium [Moles/Vol] 135 mmol/L Low 136-145 [facility] Comment on above: Order Comment: No: D o not add to previous draw Performed By: #### 3 1943 #### [facility] [address] [place] [address], [place] Urea nitrogen [Mass/Vol] 37 mg/dL High 7-25 [facility] Comment on above: Order Comment: No: D o not add to previous draw Performed By: #### 3 1943 #### [facility] [address] [place] [address], [facility] CBC COMPLETE BLOOD COUNTon 0 - Erythrocyte distribution width (RBC) [Ratio] 14.8 % Normal 11.5-15.0 [facility] Comment on above: Order Comment: No: D o not add to previous draw Performed By: #### 8 [id number] #### [facility] [address] [place] [address], [place] Hematocrit (Bld) [Volume fraction] 30.9 % Low 39.0-50.0 [facility] Comment on above: Order Comment: No: D o not add to previous draw Performed By: #### 8 5499 #### [facility] [address] [place] [address], [place] Hemoglobin (Bld) [Mass/Vol] 9.0 g/dL Low 13.0-17.0 [facility] Comment on above: Order Comment: No: D o not add to previous draw Performed By: #### 8 5499 #### [facility] [address] [place] [address], [facility] MCH (RBC) [Entitic mass] 26.6 pg Low 27.0-33.0 [facility] Comment on above: Order Comment: No: D o not add to previous draw Performed By: #### 8 5499 #### [facility] [address] [place] [address], [facility] MCHC (RBC) [Mass/Vol] 29.1 g/dL Low 32.0-35.0 [facility] Comment on above: Order Comment: No: D o not add to previous draw Performed By: #### 8 5499 #### [facility] [address] [place] [address], [facility] MCV (RBC) [Entitic vol] 91.4 fL Normal 82.0-98.0 [facility] Comment on above: Order Comment: No: D o not add to previous draw Performed By: #### 8 5499 #### [facility] [address] Nucleated RBC/100 WBC (Bld) [Ratio] 0 % Normal 0-0 [facility] Comment on above: Order Comment: No: D o not add to previous draw Performed By: #### 8 5499 #### [facility] [address] [place] [address], [facility] PLAT CNT 279 10*3/uL Normal 150-400 [facility] Comment on above: Order Comment: No: D o not add to previous draw Performed By: #### 8 5499 #### [facility] [address] [facility] [place] [address], [facility] RBC (Bld) [#/Vol] 3.38 10*6/uL Low 4.20-5.70 [facility] Comment on above: Order Comment: No: D o not add to previous draw Performed By: #### 8 5499 #### [facility] [address] WBC (Bld) [#/Vol] 6.73 10*3/uL Normal 4.00-10.60 [facility] Comment on above: Order Comment: No: D o not add to previous draw Performed By: #### 8 5499 #### [facility] [address] Operative Reporton Operative Report MR#: [id number] I [facility] Pt. Name: Newville Vona Room #: [id number] Discharge Date: Birthdate: 1960 OPERATIVE REPORT DATE OF SURGERY: 07/19/2020 SURGEON: Nima Wynne MD Operative Note Medical Thoracoscopy, lysis of adhesions, pleural biopsy Procedure Date: 07/19/2020 Procedure: Medical Thoracoscopy, pleural biopsies, lysis of adhesions, and chest tube placement Preoperative Diagnosis: Loculated pleural effusion Post-operative Diagnosis: same Surgeons: Nima Wynne MD Quick Service Technician: Davis Pham MD Type of Anesthesia: MAC [...] Wynne MD Date Trans: 07/19/2020 02:43 P/ [id number] cc: Jose Juarez D.O. [facility] [place] [address] Normal [facility] POC GLUCOSE LABon 07-19-2020 Glucose [Mass/Vol] 219 mg/dL High 70-100 [facility] Comment on above: Performed By: #### 5 1856, 20239 #### [facility] [address] [facility] [place] [address], [place] Glucose [Mass/Vol] 152 mg/dL High 70-100 [facility] Comment on above: Performed By: #### 5 0703, 89163 #### [facility] [address] [facility] [place] [address], [place] Glucose [Mass/Vol] 183 mg/dL High 70-100 [facility] Comment on above: Performed By: #### 5 0103 #### [facility] [address] [place] [address], [facility] Glucose [Mass/Vol] 206 mg/dL High 70-100 [facility] Comment on above: Performed By: #### 8 5499 ####[facility] [place] [address], [facility] Glucose [Mass/Vol] 179 mg/dL High 70-100 [facility] Comment on above: Performed By: #### 5 0103 #### [facility] [address] [place] [address], [facility] PORTABLE CHEST 1 VIEWon 06-28 PORTABLE CHEST 1 VIEW [facility] Department of Radiology [address] [place] [id number] Patient Name: RASHARD LYMAN : 1960 Sex: M Age: Race: White Pt. Location: [address] [place] [address] Patient Status: I Ordered Date: 07/19/2020 2:20:00 [...] infiltration Electronically signed: Pedro Baldwin. Transcribed by: [email or web address], User Resident: PEDRO BALDWIN Electronically Signed by: PEDRO BALDWIN @ 07/19/2020 03:03 PM I personally read this/these film(s) with this resident Normal [facility] Comment on above: Order Comment: Check Chest Tube Position BASIC METABOLIC PANELon 06-28 Calcium [Mass/Vol] 8.4 mg/dL Low 8.6-10.3 [facility] Comment on above: Order Comment: No: D o not add to previous draw Performed By: #### 8 5499 #### [facility] [address] [place] [address], [place] Chloride [Moles/Vol] 105 mmol/L Normal 98-107 [facility] Comment on above: Order Comment: No: D o not add to previous draw Performed By: #### 8 5499 #### [facility] [address] [place] [address], [place] CO2 [Moles/Vol] 25 mmol/L Normal 21-31 [facility] Comment on above: Order Comment: No: D o not add to previous draw Performed By: #### 8 5499 #### [facility] [address] [place] [address], [place] Creatinine [Mass/Vol] 4.54 mg/dL High 0.70-1.30 [facility] Comment on above: Order Comment: No: D o not add to previous draw Performed By: #### 8 5499 #### [facility] [address] [place] [address], [place] eGFR- 16 ml/min/1.73sq m Abnormal >60 [facility] Comment on above: Order Comment: No: D o not add to previous draw Performed By: #### 8 5499 #### [facility] [address] [place] [address], [place] eGFR- non- 13 ml/min/1.73sq m Abnormal >60 [facility] Comment on above: Order Comment: No: D o not add to previous draw Performed By: #### 8 5499 #### [facility] [address] [place] [address], [place] Glucose [Mass/Vol] 118 mg/dL High 70-100 [facility] Comment on above: Order Comment: No: D o not add to previous draw Performed By: #### 8 5499 #### [facility] [address] [place] [address], [place] Potassium [Moles/Vol] 4.5 mmol/L Normal 3.5-5.1 [facility] Comment on above: Order Comment: No: D o not add to previous draw Performed By: #### 8 5499 #### [facility] [address] [place] [address], [place] Sodium [Moles/Vol] 137 mmol/L Normal 136-145 [facility] Comment on above: Order Comment: No: D o not add to previous draw Performed By: #### 8 5499 #### [facility] [address] [place] [address], [place] Urea nitrogen [Mass/Vol] 40 mg/dL High 7-25 [facility] Comment on above: Order Comment: No: D o not add to previous draw Performed By: #### 8 5499 #### [facility] [address] [place] [address], [facility] CBC W/DIFFon 07-18-2020 ABS IMM GRANS 0.1 10*3/uL Normal 0.0-0.2 [facility] Comment on above: Order Comment: No: D o not add to previous draw Performed By: #### 8 5499 #### [facility] [address] [place] [address], [facility] ABS NEUTROPHILS 5.0 10*3/uL Normal 1.6-7.6 [facility] Comment on above: Order Comment: No: D o not add to previous draw Performed By: #### 8 5499 #### [facility] [address] [place] [address], [facility] Basophils (Bld) [#/Vol] 0.0 10*3/uL Normal 0.0-0.2 [facility] Comment on above: Order Comment: No: D o not add to previous draw Performed By: #### 8 5499 #### [facility] [address] [place] [address], [facility] Basophils/100 WBC (Bld) 0.4 % Normal 0.0-1.0 [facility] Comment on above: Order Comment: No: D o not add to previous draw Performed By: #### 8 5499 #### [facility] [address] [place] [address], [facility] Eosinophils (Bld) [#/Vol] 0.6 10*3/uL High 0.0-0.5 [facility] Comment on above: Order Comment: No: D o not add to previous draw Performed By: #### 8 5499 #### [facility] [address] [place] [address], [facility] Eosinophils/100 WBC (Bld) 6.8 % High 0.0-6.0 [facility] Comment on above: Order Comment: No: D o not add to previous draw Performed By: #### 8 5499 #### [facility] [address] [place] [address], [facility] Erythrocyte distribution width (RBC) [Ratio] 14.8 % Normal 11.5-15.0 [facility] Comment on above: Order Comment: No: D o not add to previous draw Performed By: #### 8 [id number] #### [facility] [address] [place] [address], [facility] Hematocrit (Bld) [Volume fraction] 31.9 % Low 39.0-50.0 [facility] Comment on above: Order Comment: No: D o not add to previous draw Performed By: #### 8 5499 #### [facility] [address] [place] [address], [facility] Hemoglobin (Bld) [Mass/Vol] 9.4 g/dL Low 13.0-17.0 [facility] Comment on above: Order Comment: No: D o not add to previous draw Performed By: #### 8 5499 #### [facility] [address] [place] [id number], [facility] IMMATURE GRANS 1.7 % High 0.0-1.0 [facility] Comment on above: Order Comment: No: D o not add to previous draw Performed By: #### 8 5499 #### [facility] [address] [place] [address], [facility] Lymphocytes (Bld) [#/Vol] 1.2 10*3/uL Normal 1.2-4.0 [facility] Comment on above: Order Comment: No: D o not add to previous draw Performed By: #### 8 5499 #### [facility] [address] [place] [id number], [facility] Lymphocytes/100 WBC (Bld) 14.8 % Low 20.0-45.0 [facility] Comment on above: Order Comment: No: D o not add to previous draw Performed By: #### 8 5499 #### [facility] [address] [place] [address], [facility] MCH (RBC) [Entitic mass] 26.9 pg Low 27.0-33.0 [facility] Comment on above: Order Comment: No: D o not add to previous draw Performed By: #### 8 [id number] #### [facility] [address] [place] [id number], [facility] MCHC (RBC) [Mass/Vol] 29.5 g/dL Low 32.0-35.0 [facility] Comment on above: Order Comment: No: D o not add to previous draw Performed By: #### 8 [id number] #### [facility] [address] [place] [address], [facility] MCV (RBC) [Entitic vol] 91.1 fL Normal 82.0-98.0 [facility] Comment on above: Order Comment: No: D o not add to previous draw Performed By: #### 8 5499 #### [facility] [address] [place] [address], [facility] Monocytes (Bld) [#/Vol] 1.1 10*3/uL High 0.1-1.0 [facility] Comment on above: Order Comment: No: D o not add to previous draw Performed By: #### 8 [id number] #### [facility] [address] [place] [address], [facility] MONOS 13.4 % High 5.0-12.0 [facility] Comment on above: Order Comment: No: D o not add to previous draw Performed By: #### 8 5499 #### [facility] [address] [place] [address], [facility] Neutrophils/100 WBC (Bld) 62.9 % Normal 40.0-72.0 [facility] Comment on above: Order Comment: No: D o not add to previous draw Performed By: #### 8 [id number] #### [facility] [address] [place] [address], [facility] Nucleated RBC/100 WBC (Bld) [Ratio] 0 % Normal 0-0 [facility] Comment on above: Order Comment: No: D o not add to previous draw Performed By: #### 8 [id number] #### [facility] [address] [place] [address], [place] PLAT CNT 296 10*3/uL Normal 150-400 [facility] Comment on above: Order Comment: No: D o not add to previous draw Performed By: #### 8 5499 #### [facility] [address] [place] [address], [facility] RBC (Bld) [#/Vol] 3.50 10*6/uL Low 4.20-5.70 [facility] Comment on above: Order Comment: No: D o not add to previous draw Performed By: #### 8 5499 #### [facility] [address] [place] [address], [place] WBC (Bld) [#/Vol] 8.03 10*3/uL Normal 4.00-10.60 [facility] Comment on above: Order Comment: No: D o not add to previous draw Performed By: #### 8 [id number] #### [facility] [address] [place] [address], [facility] POC GLUCOSE LABon 07-18-2020 Glucose [Mass/Vol] 192 mg/dL High 70-100 [facility] Comment on above: Performed By: #### 5 7307, 74382 #### [facility] [address] [place] [address], [place] Glucose [Mass/Vol] 153 mg/dL High 70-100 [facility] Comment on above: Performed By: #### 5 7307, 39302 #### [facility] [address] [place] [address], [place] Glucose [Mass/Vol] 80 mg/dL Normal 70-100 [facility] Comment on above: Performed By: #### 5 7307, 08726 #### [facility] [address] [place] [address], [facility] Glucose [Mass/Vol] 48 mg/dL Critically low 70-100 [facility] e [facility] Comment on above: Order Comment: Left Peural Effusion Performed By: #### 8 [id number] ####[facility] [place] [address], [place] Glucose [Mass/Vol] 120 mg/dL High 70-100 [facility] Comment on above: Performed By: #### 5 0103 #### [facility] [address] [place] [address], [facility] Glucose [Mass/Vol] 112 mg/dL High 70-100 [facility] Comment on above: Performed By: #### 5 7307, 24356 #### [facility] [address] [place] [address], [facility] POC SARS COV2 ANTIGEN NEGATI VEon 07-18-2020 POC SARS COV2 ANTIGEN NEG CANCELED Normal NEGATIVE [facility] Comment on above: Result Comment: The released value NEGATIVE was canceled by ULISES on 07/19/2020 07:11 Performed By: #### 3 1944 #### [facility] [address] [facility] [place] [address], [facility] POC SARS COV2 ANTIGEN NEG Negative Normal NEGATIVE [facility] Comment on above: Result Comment: Nega tive [...] signs and symptoms consistent with COVID-19. The [employer] COVID-19 Antigen test is a lateral flow [...] Accreditation. Performed By: #### 8 [id number] #### [facility] [address] [place] [address], [facility] BASIC METABOLIC PANELon 03-2 Calcium [Mass/Vol] 8.2 mg/dL Low 8.6-10.3 [facility] Comment on above: Order Comment: No: D o not add to previous draw Performed By: #### 3 1943 #### [facility] [address] [facility] [place] [place] [address], [facility] Chloride [Moles/Vol] 101 mmol/L Normal 98-107 [facility] Comment on above: Order Comment: No: D o not add to previous draw Performed By: #### 3 1943 #### [facility] [address] [facility] [place] [address], [facility] CO2 [Moles/Vol] 25 mmol/L Normal 21-31 [facility] Comment on above: Order Comment: No: D o not add to previous draw Performed By: #### 3 1943 #### [facility] [address] [place] [address], [facility] Creatinine [Mass/Vol] 3.64 mg/dL High 0.70-1.30 [facility] Comment on above: Order Comment: No: D o not add to previous draw Performed By: #### 3 1943 #### [facility] [address] [place] [address], [facility] eGFR- 21 ml/min/1.73sq m Abnormal >60 [facility] Comment on above: Order Comment: No: D o not add to previous draw Performed By: #### 3 1943 #### [facility] [address] [place] [address], [facility] eGFR- non- 17 ml/min/1.73sq m Abnormal >60 [facility] Comment on above: Order Comment: No: D o not add to previous draw Performed By: #### 3 1943 #### [facility] [address] [place] [address], [facility] Glucose [Mass/Vol] 124 mg/dL High 70-100 [facility] Comment on above: Order Comment: No: D o not add to previous draw Performed By: #### 3 1943 #### [facility] [address] [place] [address], [facility] Potassium [Moles/Vol] 4.3 mmol/L Normal 3.5-5.1 [facility] Comment on above: Order Comment: No: D o not add to previous draw Performed By: #### 3 1943 #### [facility] [address] [place] [address], [facility] Sodium [Moles/Vol] 134 mmol/L Low 136-145 [facility] Comment on above: Order Comment: No: D o not add to previous draw Performed By: #### 3 1943 #### [facility] [address] [place] [address], [facility] Urea nitrogen [Mass/Vol] 36 mg/dL High 7-25 [facility] Comment on above: Order Comment: No: D o not add to previous draw Performed By: #### 3 1943 #### [facility] [address] [place] [address], [facility] CBC W/DIFFon 07-17-2020 ABS IMM GRANS 0.2 10*3/uL Normal 0.0-0.2 [facility] Comment on above: Order Comment: No: D o not add to previous draw Performed By: #### 8 [id number] #### [facility] [address] [place] [address], [facility] [facility] ABS NEUTROPHILS 5.8 10*3/uL Normal 1.6-7.6 [facility] Comment on above: Order Comment: No: D o not add to previous draw Performed By: #### 8 [id number] #### [facility] [address] [place] [address], [place] Basophils (Bld) [#/Vol] 0.1 10*3/uL Normal 0.0-0.2 [facility] Comment on above: Order Comment: No: D o not add to previous draw Performed By: #### 8 5499 #### [facility] [address] [place] [address], [facility] Basophils/100 WBC (Bld) 0.6 % Normal 0.0-1.0 [facility] Comment on above: Order Comment: No: D o not add to previous draw Performed By: #### 8 [id number] #### [facility] [address] [place] [address], [facility] Eosinophils (Bld) [#/Vol] 0.6 10*3/uL High 0.0-0.5 [facility] Comment on above: Order Comment: No: D o not add to previous draw Performed By: #### 8 5499 #### [facility] [address] [place] [address], [facility] Eosinophils/100 WBC (Bld) 7.0 % High 0.0-6.0 [facility] Comment on above: Order Comment: No: D o not add to previous draw Performed By: #### 8 5499 #### [facility] [address] [place] [address], [place] Erythrocyte distribution width (RBC) [Ratio] 14.8 % Normal 11.5-15.0 [facility] Comment on above: Order Comment: No: D o not add to previous draw Performed By: #### 8 [id number] #### [facility] [address] [place] [address], [facility] Hematocrit (Bld) [Volume fraction] 30.0 % Low 39.0-50.0 [facility] Comment on above: Order Comment: No: D o not add to previous draw Performed By: #### 8 [id number] #### [facility] [address] [place] [address], [facility] Hemoglobin (Bld) [Mass/Vol] 9.2 g/dL Low 13.0-17.0 [facility] Comment on above: Order Comment: No: D o not add to previous draw Performed By: #### 8 5499 #### [facility] [address] [place] [address], [facility] IMMATURE GRANS 1.7 % High 0.0-1.0 [facility] Comment on above: Order Comment: No: D o not add to previous draw Performed By: #### 8 5499 #### [facility] [address] [facility] [place] [address], [facility] Lymphocytes (Bld) [#/Vol] 1.3 10*3/uL Normal 1.2-4.0 [facility] Comment on above: Order Comment: No: D o not add to previous draw Performed By: #### 8 [id number] #### [facility] [address] [address], [facility] Lymphocytes/100 WBC (Bld) 14.3 % Low 20.0-45.0 [facility] Comment on above: Order Comment: No: D o not add to previous draw Performed By: #### 8 [id number] #### [facility] [address] [facility] [place] [address], [facility] MCH (RBC) [Entitic mass] 27.3 pg Normal 27.0-33.0 [facility] Comment on above: Order Comment: No: D o not add to previous draw Performed By: #### 8 [id number] #### [facility] [address] [place] [address], [facility] MCHC (RBC) [Mass/Vol] 30.7 g/dL Low 32.0-35.0 [facility] Comment on above: Order Comment: No: D o not add to previous draw Performed By: #### 8 [id number] #### [facility] [address] [place] [id number], [facility] MCV (RBC) [Entitic vol] 89.0 fL Normal 82.0-98.0 [facility] Comment on above: Order Comment: No: D o not add to previous draw Performed By: #### 8 [id number] #### [facility] [address] [place] [address], [facility] Monocytes (Bld) [#/Vol] 1.0 10*3/uL Normal 0.1-1.0 [facility] Comment on above: Order Comment: No: D o not add to previous draw Performed By: #### 8 [id number] #### [facility] [address] [place] [id number], [facility] MONOS 10.9 % Normal 5.0-12.0 [facility] Comment on above: Order Comment: No: D o not add to previous draw Performed By: #### 8 [id number] #### [facility] [address] [place] [address], [facility] Neutrophils/100 WBC (Bld) 65.5 % Normal 40.0-72.0 [facility] Comment on above: Order Comment: No: D o not add to previous draw Performed By: #### 8 [id number] #### [facility] [address] [place] [id number], [facility] Nucleated RBC/100 WBC (Bld) [Ratio] 0 % Normal 0-0 [facility] Comment on above: Order Comment: No: D o not add to previous draw Performed By: #### 8 5499 #### [facility] [address] [place] [address], [place] PLAT CNT 293 10*3/uL Normal 150-400 [facility] Comment on above: Order Comment: No: D o not add to previous draw Performed By: #### 8 5499 #### [facility] [address] [place] [address], [place] RBC (Bld) [#/Vol] 3.37 10*6/uL Low 4.20-5.70 [facility] Comment on above: Order Comment: No: D o not add to previous draw Performed By: #### 8 5499 #### [facility] [address] [place] [address], [place] WBC (Bld) [#/Vol] 8.86 10*3/uL Normal 4.00-10.60 [facility] Comment on above: Order Comment: No: D o not add to previous draw Performed By: #### 8 5499 #### [facility] [address] [place] [address], [place] POC GLUCOSE LABon 07-17-2020 Glucose [Mass/Vol] 101 mg/dL High 70-100 [facility] Comment on above: Performed By: #### 5 7307, 93761 #### [facility] [address] [place] [address], [place] Glucose [Mass/Vol] 76 mg/dL Normal 70-100 [facility] Comment on above: Performed By: #### 5 7307, 10135 #### [facility] [address] [place] [address], [place] Glucose [Mass/Vol] 75 mg/dL Normal 70-100 [facility] Comment on above: Performed By: #### 8 5499 ####[facility] [place] [address], [place] Glucose [Mass/Vol] 198 mg/dL High 70-100 [facility] Comment on above: Performed By: #### 8 5499 ####[facility] [place] [address], [place] Glucose [Mass/Vol] 205 mg/dL High 70-100 [facility] Comment on above: Performed By: #### 3 0318 #### [facility] [address] [place] [address], [place] Glucose [Mass/Vol] 187 mg/dL High 70-100 [facility] Comment on above: Performed By: #### 5 7307, 25580 #### [facility] [address] [place] [address], [place] Glucose [Mass/Vol] 131 mg/dL High 70-100 [facility] Comment on above: Performed By: #### 8 5499 #### [facility] [address] [place] [address], [place] Glucose [Mass/Vol] 75 mg/dL Normal 70-100 [facility] Comment on above: Performed By: #### 5 0103 #### [facility] [address] [place] [address], [place] Glucose [Mass/Vol] 69 mg/dL Low 70-100 [facility] Comment on above: Performed By: #### 8 5499 ####[facility] [place] [address], [place] BASIC METABOLIC PANELon 03-2 0-2020 Calcium [Mass/Vol] 8.4 mg/dL Low 8.6-10.3 [facility] Comment on above: Order Comment: No: D o not add to previous draw Performed By: #### 3 1943 #### [facility] [address] [place] [address], [place] Chloride [Moles/Vol] 105 mmol/L Normal 98-107 [facility] Comment on above: Order Comment: No: D o not add to previous draw Performed By: #### 3 1943 #### [facility] [address] [place] [address], [place] CO2 [Moles/Vol] 24 mmol/L Normal 21-31 [facility] Comment on above: Order Comment: No: D o not add to previous draw Performed By: #### 3 1943 #### [facility] [address] [place] [address], [place] Creatinine [Mass/Vol] 4.14 mg/dL High 0.70-1.30 [facility] Comment on above: Order Comment: No: D o not add to previous draw Performed By: #### 3 1943 #### [facility] [address] [place] [address], [place] eGFR- 18 ml/min/1.73sq m Abnormal >60 [facility] Comment on above: Order Comment: No: D o not add to previous draw Performed By: #### 3 1943 #### [facility] [address] [place] [address], [place] eGFR- non- 15 ml/min/1.73sq m Abnormal >60 [facility] Comment on above: Order Comment: No: D o not add to previous draw Performed By: #### 3 1943 #### [facility] [address] [place] [address], [place] Glucose [Mass/Vol] 127 mg/dL High 70-100 [facility] Comment on above: Order Comment: No: D o not add to previous draw Performed By: #### 3 1943 #### [facility] [address] [place] [address], [place] Potassium [Moles/Vol] 4.0 mmol/L Normal 3.5-5.1 [facility] Comment on above: Order Comment: No: D o not add to previous draw Performed By: #### 3 1943 #### [facility] [address] [place] [address], [place] Sodium [Moles/Vol] 136 mmol/L Normal 136-145 [facility] Comment on above: Order Comment: No: D o not add to previous draw Performed By: #### 3 1943 #### [facility] [address] [place] [address], [facility] Urea nitrogen [Mass/Vol] 35 mg/dL High 7-25 [facility] Comment on above: Order Comment: No: D o not add to previous draw Performed By: #### 3 1943 #### [facility] [address] [place] [address], [facility] CBC COMPLETE BLOOD COUNTon 0 07-16-2020 Erythrocyte distribution width (RBC) [Ratio] 14.6 % Normal 11.5-15.0 [facility] Comment on above: Order Comment: No: D o not add to previous draw Performed By: #### 8 [id number] #### [facility] [address] [place] [address], [facility] Hematocrit (Bld) [Volume fraction] 31.8 % Low 39.0-50.0 [facility] Comment on above: Order Comment: No: D o not add to previous draw Performed By: #### 8 5499 #### [facility] [address] [place] [address], [facility] Hemoglobin (Bld) [Mass/Vol] 9.7 g/dL Low 13.0-17.0 [facility] Comment on above: Order Comment: No: D o not add to previous draw Performed By: #### 8 5499 #### [facility] [address] [place] [address], [facility] MCH (RBC) [Entitic mass] 27.2 pg Normal 27.0-33.0 [facility] Comment on above: Order Comment: No: D o not add to previous draw Performed By: #### 8 5499 #### [facility] [address] [place] [address], [facility] MCHC (RBC) [Mass/Vol] 30.5 g/dL Low 32.0-35.0 [facility] Comment on above: Order Comment: No: D o not add to previous draw Performed By: #### 8 5499 #### [facility] [address] [address], [facility] MCV (RBC) [Entitic vol] 89.3 fL Normal 82.0-98.0 [facility] Comment on above: Order Comment: No: D o not add to previous draw Performed By: #### 8 [id number] #### [facility] [address] [place] [address], [facility] Nucleated RBC/100 WBC (Bld) [Ratio] 0 % Normal 0-0 [facility] Comment on above: Order Comment: No: D o not add to previous draw Performed By: #### 8 5499 #### [facility] [address] [place] [address], [facility] PLAT CNT 321 10*3/uL Normal 150-400 [facility] Comment on above: Order Comment: No: D o not add to previous draw Performed By: #### 8 5499 #### [facility] [address] [place] [address], [facility] RBC (Bld) [#/Vol] 3.56 10*6/uL Low 4.20-5.70 [facility] Comment on above: Order Comment: No: D o not add to previous draw Performed By: #### 8 5499 #### [facility] [address] [place] [address], [place] WBC (Bld) [#/Vol] 8.88 10*3/uL Normal 4.00-10.60 [facility] Comment on above: Order Comment: No: D o not add to previous draw Performed By: #### 8 5499 #### [facility] [address] [place] [address], [facility] POC GLUCOSE LABon 07-16-2020 Glucose [Mass/Vol] 94 mg/dL Normal 70-100 [facility] Comment on above: Performed By: #### 5 0103 #### [facility] [address] [place] [address], [place] Glucose [Mass/Vol] 62 mg/dL Low 70-100 [facility] Comment on above: Performed By: #### 5 7307, 19307 #### [facility] [address] [place] [address], [place] Glucose [Mass/Vol] 80 mg/dL Normal 70-100 [facility] Comment on above: Performed By: #### 5 7307, 56844 #### [facility] [address] [place] [address], [place] Glucose [Mass/Vol] 99 mg/dL Normal 70-100 [facility] Comment on above: Performed By: #### 8 5499 ####[facility] [place] [address], [place] Glucose [Mass/Vol] 203 mg/dL High 70-100 [facility] Comment on above: Performed By: #### 8 5499 ####[facility] [place] [address], [place] Glucose [Mass/Vol] 151 mg/dL High 70-100 [facility] Comment on above: Performed By: #### 5 7307, 82292 #### [facility] [address] [place] [address], [place] ANAon 07-15-2020 KILLIAN SCREEN <1:40 Normal <1:40,1:40 [facility] Comment on above: Order Comment: No: D o not add to previous draw Performed By: #### 8 5499 #### [facility] [address] [place] [address], [place] ANCA IGG WITH REFLEX [id number] on 07-15-2020 ANCA <1:20 Normal <1:20 [facility] Comment on above: Order Comment: No: D [...] collagen vascular disease or arthritis. Performed By: [employer] [address] [place] [id number] Pattern Stamper: Emi Campbell MD BASIC METABOLIC PANELon 06-27 Calcium [Mass/Vol] 8.5 mg/dL Low 8.6-10.3 [facility] Comment on above: Order Comment: No: D o not add to previous draw Performed By: #### 8 5499 #### [facility] [address] [place] [address], [facility] Chloride [Moles/Vol] 103 mmol/L Normal 98-107 [facility] Comment on above: Order Comment: No: D o not add to previous draw Performed By: #### 8 5499 #### [facility] [address] [place] [address], [facility] CO2 [Moles/Vol] 23 mmol/L Normal 21-31 [facility] Comment on above: Order Comment: No: D o not add to previous draw Performed By: #### 8 5499 #### [facility] [address] [place] [id number], [facility] Creatinine [Mass/Vol] 4.38 mg/dL High 0.70-1.30 [facility] Comment on above: Order Comment: No: D o not add to previous draw Performed By: #### 8 5499 #### [facility] [address] [place] [address], [facility] eGFR- 17 ml/min/1.73sq m Abnormal >60 [facility] Comment on above: Order Comment: No: D o not add to previous draw Performed By: #### 8 5499 #### [facility] [address] [place] [address], [place] eGFR- non- 14 ml/min/1.73sq m Abnormal >60 [facility] Comment on above: Order Comment: No: D o not add to previous draw Performed By: #### 8 5499 #### [facility] [address] [place] [address], [place] Glucose [Mass/Vol] 154 mg/dL High 70-100 [facility] Comment on above: Order Comment: No: D o not add to previous draw Performed By: #### 8 5499 #### [facility] [address] [place] [address], [place] Potassium [Moles/Vol] 4.5 mmol/L Normal 3.5-5.1 [facility] Comment on above: Order Comment: No: D o not add to previous draw Performed By: #### 8 5499 #### [facility] [address] [place] [address], [place] Sodium [Moles/Vol] 135 mmol/L Low 136-145 [facility] Comment on above: Order Comment: No: D o not add to previous draw Performed By: #### 8 5499 #### [facility] [address] [place] [address], [place] Urea nitrogen [Mass/Vol] 32 mg/dL High 7-25 [facility] Comment on above: Order Comment: No: D o not add to previous draw Performed By: #### 8 5499 #### [facility] [address] [place] [address], [place] C REACTIVE PROTEINon 021 CRP [Mass/Vol] 138.0 mg/L High 0.0-7.0 [facility] Comment on above: Order Comment: FROM [id number] Performed By: #### 8 5499 #### [facility] [address] CBC W/DIFFon 07-15-2020 ABS IMM GRANS 0.1 10*3/uL Normal 0.0-0.2 [facility] Comment on above: Performed By: #### 5 0103 #### [facility] [address] [place] [address], [facility] ABS NEUTROPHILS 7.3 10*3/uL Normal 1.6-7.6 [facility] Comment on above: Performed By: #### 5 0103 #### [facility] [address] [place] [address], [facility] Basophils (Bld) [#/Vol] 0.0 10*3/uL Normal 0.0-0.2 [facility] Comment on above: Performed By: #### 5 0103 #### [facility] [address] [place] [address], [facility] Basophils/100 WBC (Bld) 0.3 % Normal 0.0-1.0 [facility] Comment on above: Performed By: #### 5 0103 #### [facility] [address] [place] [address], [facility] Eosinophils (Bld) [#/Vol] 0.5 10*3/uL Normal 0.0-0.5 [facility] Comment on above: Performed By: #### 5 0103 #### [facility] [address] [place] [address], [facility] Eosinophils/100 WBC (Bld) 5.1 % Normal 0.0-6.0 [facility] Comment on above: Performed By: #### 5 0103 #### [facility] [address] [place] [address], [facility] Erythrocyte distribution width (RBC) [Ratio] 14.9 % Normal 11.5-15.0 [facility] Comment on above: Performed By: #### 5 0103 #### [facility] [address] Hematocrit (Bld) [Volume fraction] 33.0 % Low 39.0-50.0 [facility] Comment on above: Performed By: #### 5 0103 #### [facility] [address] Hemoglobin (Bld) [Mass/Vol] 9.9 g/dL Low 13.0-17.0 [facility] Comment on above: Performed By: #### 5 0103 #### [facility] [address] IMMATURE GRANS 1.4 % High 0.0-1.0 [facility] Comment on above: Performed By: #### 102 #### [facility] [address] Lymphocytes (Bld) [#/Vol] 1.1 10*3/uL Low 1.2-4.0 [facility] Comment on above: Performed By: #### 3 #### [facility] [address] Lymphocytes/100 WBC (Bld) 11.0 % Low 20.0-45.0 [facility] Comment on above: Performed By: #### 3 #### [facility] [address] MCH (RBC) [Entitic mass] 27.0 pg Normal 27.0-33.0 [facility] Comment on above: Performed By: #### 5 3 #### [facility] [address] MCHC (RBC) [Mass/Vol] 30.0 g/dL Low 32.0-35.0 [facility] Comment on above: Performed By: #### 5 3 #### [facility] [address] MCV (RBC) [Entitic vol] 90.2 fL Normal 82.0-98.0 [facility] Comment on above: Performed By: #### 5 0103 #### [facility] [address] [place] [address], [facility] Monocytes (Bld) [#/Vol] 1.1 10*3/uL High 0.1-1.0 [facility] Comment on above: Performed By: #### 5 0103 #### [facility] [address] [place] [id number], [facility] MONOS 10.9 % Normal 5.0-12.0 [facility] Comment on above: Performed By: #### 102 #### [facility] [address] [place] [id number], [facility] Neutrophils/100 WBC (Bld) 71.3 % Normal 40.0-72.0 [facility] Comment on above: Performed By: #### 102 #### [facility] [address] [place] [address], [facility] Nucleated RBC/100 WBC (Bld) [Ratio] 0 % Normal 0-0 [facility] Comment on above: Performed By: #### 102 #### [facility] [address] [place] [address], [place] PLAT CNT 317 10*3/uL Normal 150-400 [facility] Comment on above: Performed By: #### 3 #### [facility] [address] [place] [address], [place] RBC (Bld) [#/Vol] 3.66 10*6/uL Low 4.20-5.70 [facility] Comment on above: Performed By: #### 102 #### [facility] [address] [place] [address], [place] WBC (Bld) [#/Vol] 10.23 10*3/uL Normal 4.00-10.60 [facility] Comment on above: Performed By: #### 5 0103 #### [facility] [address] [place] [address], [facility] COMPLEMENT 3on 07-15-2020 COMPLEMENT 3 108 mg/dL Normal 79-152 [facility] Comment on above: Order Comment: No: D o not add to previous draw Performed By: #### 8 5499 #### [facility] [address] [place] [address], [facility] COMPLEMENT 4on 07-15-2020 COMPLEMENT 4 31 mg/dL Normal 16-38 [facility] Comment on above: Order Comment: No: D o not add to previous draw Performed By: #### 8 5499 #### [facility] [address] [facility] [place] [address], [facility] GLOMR BASMT MEMBRon 07-16-19 21 GLOMR BASMT MBRN Negative Abnormal NEGATIVE [facility] Comment on above: Order Comment: No: D o not add to previous draw Result Comment: Note : The performance characteristics of this test were validated by the [facility]. It has not been cleared or approved by the U.[place]. Food and Drug Administration. The results are not intended to be used as the sole means for clinical diagnosis or patient management decisions. [facility] is authorized under CLIA to perform high-complexity testing. Performed By: #### 8 5499 #### [facility] [address] [place] [address], [facility] POC GLUCOSE LABon 07-15-2020 Glucose [Mass/Vol] 107 mg/dL High 70-100 [facility] Comment on above: Performed By: #### 5 7307, 91748 #### [facility] [address] [facility] [place] [place] [address], [facility] Glucose [Mass/Vol] 84 mg/dL Normal 70-100 [facility] Comment on above: Performed By: #### 5 0103 #### [facility] [address] [facility] [place] [address], [facility] Glucose [Mass/Vol] 164 mg/dL High 70-100 [facility] Comment on above: Performed By: #### 8 5499 ####[facility] [place] [address], [facility] Glucose [Mass/Vol] 141 mg/dL High 70-100 [facility] Comment on above: Performed By: #### 5 7307, 14880 #### [facility] [address] [place] [address], [facility] PORTABLE CHEST 1 VIEWon 06-27 PORTABLE CHEST 1 VIEW [facility] Department of Radiology [address] [place] [id number] Patient Name: RASHARD LYMAN : 1960 Sex: M Age: Race: White Pt. Location: [address] [place] [address] Patient Status: I Ordered Date: 07/15/2020 7:00:00 [...] exam. Electronically signed: Nir Swartz. Transcribed by: [email or web address], User Resident: Electronically Signed by: NIR SWARTZ @ 07/15/2020 07:34 AM Normal [facility] Comment on above: Order Comment: evalu ate for Effusion *AFB CULTUREon 07-14-2020 *AFB CULTURE Clinical Report: (D) Specimen/Source: FLUID/PLEURAL FLUID Collected: 07/14/2020 13:03 Status: Final Last Updated: 08/26/2020 08:52 (1) Left Peural Effusion AFB (Final) No Acid Fast Bacilli Seen CULT RES (Final) No growth after 42 days of incubation Normal [facility] Comment on above: Order Comment: Left Peural Effusion Performed By: #### 8 [id number] #### [facility] [address] *ANAEROBIC CULTUREon 021 *ANAEROBIC CULTURE Clinical Report: (D) Specimen/Source: FLUID/PLEURAL FLUID Collected: 07/14/2020 13:03 Status: Final Last Updated: 07/19/2020 08:08 (1) Left Peural Effusion CULT RES (Final) No Anaerobes Isolated 5 Days Normal [facility] Comment on above: Order Comment: Left Peural Effusion Performed By: #### 8 [id number] #### [facility] [address] *BODY FLUID CULTUREon 2020 *BODY FLUID CULTURE Clinical Report: (D) Specimen/Source: FLUID/PLEURAL FLUID Collected: 07/14/2020 13:03 Status: Final Last Updated: 07/19/2020 07:53 (1) Left Peural Effusion GRAM (Final) Polys PRESENT No Bacteria Seen CYTOSPUN (Final) This Gram Stain was done on a cytocentrifuged specimen CULT RES (Final) No Growth Day 5 Normal [facility] Comment on above: Order Comment: Left Peural Effusion Performed By: #### 3 [id number] #### [facility] 3000 [facility]. [address] *FUNGAL CULTUREon 07-14-2020 *FUNGAL CULTURE Clinical Report: (D) Specimen/Source: FLUID/PLEURAL FLUID Collected: 07/14/2020 13:03 Status: Final Last Updated: 08/15/2020 08:41 (1) Left Peural Effusion FS (Final) No Yeast or Fungal Elements Seen CULT RES (Final) Culture negative for fungus Normal [facility] Comment on above: Order Comment: Left Peural Effusion Performed By: #### 8 [id number] #### [facility] 3000 [facility]. [address] *VIRAL NON RESPIRATORY CULTU REon 07-14-2020 Bacteria identified Cx Nom (Unsp spec) Normal [facility] Comment on above: Order Comment: Left Peural [...] Linked Virus Inducible S. [place] Normal [facility] Comment on above: Order Comment: Left Peural Effusion Result Comment: Test Performed [place] [address] - Released 07/20/2020 14:10 Result changed by IF on 07/17/2020 14:17. The previous value was Test Performed by [address] [address] [phone].. Result changed by IF on 07/18/2020 12:17. The previous value was Test Performed by [facility] [address] [place] [address], [place] [address] [phone].. Result changed by IF on 07/20/2020 14:10. The previous value was Test Performed by [address] [place] [address] [phone].. REPORT STATUS FINAL 07/20/2020 Normal [facility] Comment on above: Order Comment: Left Peural Effusion Result Comment: Resu lt changed by IF on 07/20/2020 14:10. The previous value was Preliminary. APTTon 07-14-2020 aPTT Coag (Bld) [Time] 41.7 s High 25.0-35.0 [facility] Comment on above: Order Comment: No: D [...] PURPOSE. Performed By: #### 8 [id number] #### [facility] 3000 [facility]. [place], [place] [id number] [place] [address] aPTT Coag (Bld) [Time] 44.9 s High 25.0-35.0 [facility] Comment on above: Order Comment: No: D [...] FOR THIS PURPOSE. Performed By: #### 5 [id number], [id number] #### [facility] [address] [place] [address], [place] BASIC METABOLIC PANELon 06-27 Calcium [Mass/Vol] 8.6 mg/dL Normal 8.6-10.3 [facility] Comment on above: Order Comment: No: D o not add to previous draw Performed By: #### 8 [id number] #### [facility] [address] [place] [address], [place] Chloride [Moles/Vol] 102 mmol/L Normal 98-107 [facility] Comment on above: Order Comment: No: D o not add to previous draw Performed By: #### 8 [id number] #### [facility] [address] [place] [address], [place] CO2 [Moles/Vol] 24 mmol/L Normal 21-31 [facility] Comment on above: Order Comment: No: D o not add to previous draw Performed By: #### 8 [id number] #### [facility] [address] [place] [address], [place] Creatinine [Mass/Vol] 3.44 mg/dL High 0.70-1.30 [facility] Comment on above: Order Comment: No: D o not add to previous draw Performed By: #### 8 [id number] #### [facility] [address] [place] [address], [place] eGFR- 22 ml/min/1.73sq m Abnormal >60 [facility] Comment on above: Order Comment: No: D o not add to previous draw Performed By: #### 8 [id number] #### [facility] [address] [place] [address], [place] eGFR- non- 18 ml/min/1.73sq m Abnormal >60 [facility] Comment on above: Order Comment: No: D o not add to previous draw Performed By: #### 8 [id number] #### [facility] [address] [place] [address], [facility] Glucose [Mass/Vol] 355 mg/dL High 70-100 [facility] Comment on above: Order Comment: No: D o not add to previous draw Performed By: #### 8 [id number] #### [facility] [address] [place] [address], [facility] Potassium [Moles/Vol] 4.6 mmol/L Normal 3.5-5.1 [facility] Comment on above: Order Comment: No: D o not add to previous draw Performed By: #### 8 [id number] #### [facility] [address] [facility] [place] [address], [facility] Sodium [Moles/Vol] 133 mmol/L Low 136-145 [facility] Comment on above: Order Comment: No: D o not add to previous draw Performed By: #### 8 [id number] #### [facility] 3000 [facility]. [address] Urea nitrogen [Mass/Vol] 27 mg/dL High 7-25 [facility] Comment on above: Order Comment: No: D o not add to previous draw Performed By: #### 8 [id number] #### [facility] [address] [facility] [address] BNP (B-TYPE NATRIURETIC PEPT CIERRA)on 07-14-2020 Natriuretic peptide B (Bld) [Mass/Vol] 19 pg/mL Normal 0-100 [facility] Comment on above: Order Comment: Left Peural Effusion Result Comment: Give n the appropriate clinical setting a BNP result of >100 pg/mL indicates congestive heart failure. Performed By: #### 3 [id number] #### [facility] 3000 [facility]. [address] CBC COMPLETE BLOOD COUNTon 0 07-14-2020 Erythrocyte distribution width (RBC) [Ratio] 14.6 % Normal 11.5-15.0 [facility] Comment on above: Order Comment: No: D o not add to previous draw Performed By: #### 8 [id number] #### [facility] [address] [place] [address], [facility] Hematocrit (Bld) [Volume fraction] 35.3 % Low 39.0-50.0 [facility] Comment on above: Order Comment: No: D o not add to previous draw Performed By: #### 8 [id number] #### [facility] [address] [place] [address], [facility] Hemoglobin (Bld) [Mass/Vol] 11.1 g/dL Low 13.0-17.0 [facility] Comment on above: Order Comment: No: D o not add to previous draw Performed By: #### 8 [id number] #### [facility] [address] [place] [id number], [facility] MCH (RBC) [Entitic mass] 27.5 pg Normal 27.0-33.0 [facility] Comment on above: Order Comment: No: D o not add to previous draw Performed By: #### 8 [id number] #### [facility] [address] [place] [address], [facility] MCHC (RBC) [Mass/Vol] 31.4 g/dL Low 32.0-35.0 [facility] Comment on above: Order Comment: No: D o not add to previous draw Performed By: #### 8 [id number] #### [facility] [address] [place] [id number], [facility] MCV (RBC) [Entitic vol] 87.6 fL Normal 82.0-98.0 [facility] Comment on above: Order Comment: No: D o not add to previous draw Performed By: #### 8 [id number] #### [facility] [address] [place] [id number], [facility] Nucleated RBC/100 WBC (Bld) [Ratio] 0 % Normal 0-0 [facility] Comment on above: Order Comment: No: D o not add to previous draw Performed By: #### 8 [id number] #### [facility] [address] [place] [address], [facility] PLAT CNT 325 10*3/uL Normal 150-400 [facility] Comment on above: Order Comment: No: D o not add to previous draw Performed By: #### 8 [id number] #### [facility] [address] [facility] [place] [address], [facility] RBC (Bld) [#/Vol] 4.03 10*6/uL Low 4.20-5.70 [facility] Comment on above: Order Comment: No: D o not add to previous draw Performed By: #### 8 [id number] #### [facility] [address] [facility] [place] [address], [facility] WBC (Bld) [#/Vol] 12.59 10*3/uL High 4.00-10.60 [facility] Comment on above: Order Comment: No: D o not add to previous draw Performed By: #### 8 [id number] #### [facility] [address] [facility] [place] [address], [facility] CBC W/DIFFon 07-14-2020 ABS IMM GRANS 0.2 10*3/uL Normal 0.0-0.2 [facility] Comment on above: Order Comment: No: D o not add to previous draw Performed By: #### 8 [id number] #### [facility] [address] [facility] [place] [address], [facility] ABS NEUTROPHILS 7.9 10*3/uL High 1.6-7.6 [facility] Comment on above: Order Comment: No: D o not add to previous draw Performed By: #### 8 [id number] #### [facility] [address] [facility] [place] [address], [facility] Basophils (Bld) [#/Vol] 0.1 10*3/uL Normal 0.0-0.2 [facility] Comment on above: Order Comment: No: D o not add to previous draw Performed By: #### 8 [id number] #### [facility] [address] [place] [address], [facility] Basophils/100 WBC (Bld) 0.5 % Normal 0.0-1.0 [facility] Comment on above: Order Comment: No: D o not add to previous draw Performed By: #### 8 [id number] #### [facility] [address] [place] [address], [place] Eosinophils (Bld) [#/Vol] 0.5 10*3/uL Normal 0.0-0.5 [facility] Comment on above: Order Comment: No: D o not add to previous draw Performed By: #### 8 [id number] #### [facility] [address] [place] [address], [facility] Eosinophils/100 WBC (Bld) 4.3 % Normal 0.0-6.0 [facility] Comment on above: Order Comment: No: D o not add to previous draw Performed By: #### 8 [id number] #### [facility] [address] [place] [address], [facility] Erythrocyte distribution width (RBC) [Ratio] 14.6 % Normal 11.5-15.0 [facility] Comment on above: Order Comment: No: D o not add to previous draw Performed By: #### 8 [id number] #### [facility] [address] [place] [address], [facility] Hematocrit (Bld) [Volume fraction] 34.2 % Low 39.0-50.0 [facility] Comment on above: Order Comment: No: D o not add to previous draw Performed By: #### 8 [id number] #### [facility] [address] [place] [address], [place] Hemoglobin (Bld) [Mass/Vol] 10.3 g/dL Low 13.0-17.0 [facility] Comment on above: Order Comment: No: D o not add to previous draw Performed By: #### 8 [id number] #### [facility] [address] [place] [id number], [facility] IMMATURE GRANS 1.4 % High 0.0-1.0 [facility] Comment on above: Order Comment: No: D o not add to previous draw Performed By: #### 8 [id number] #### [facility] [address] [place] [id number], [facility] Lymphocytes (Bld) [#/Vol] 1.3 10*3/uL Normal 1.2-4.0 [facility] Comment on above: Order Comment: No: D o not add to previous draw Performed By: #### 8 [id number] #### [facility] [address] [place] [id number], [facility] Lymphocytes/100 WBC (Bld) 11.3 % Low 20.0-45.0 [facility] Comment on above: Order Comment: No: D o not add to previous draw Performed By: #### 8 [id number] #### [facility] [address] [facility] [place] [id number], [facility] MCH (RBC) [Entitic mass] 27.0 pg Normal 27.0-33.0 [facility] Comment on above: Order Comment: No: D o not add to previous draw Performed By: #### 8 [id number] #### [facility] [address] [facility] [place] [id number], [facility] MCHC (RBC) [Mass/Vol] 30.1 g/dL Low 32.0-35.0 [facility] Comment on above: Order Comment: No: D o not add to previous draw Performed By: #### 8 [id number] #### [facility] [address] [place] [id number], [facility] MCV (RBC) [Entitic vol] 89.5 fL Normal 82.0-98.0 [facility] Comment on above: Order Comment: No: D o not add to previous draw Performed By: #### 8 [id number] #### [facility] [address] [place] [address], [facility] Monocytes (Bld) [#/Vol] 1.4 10*3/uL High 0.1-1.0 [facility] Comment on above: Order Comment: No: D o not add to previous draw Performed By: #### 8 [id number] #### [facility] [address] [place] [address], [place] MONOS 12.6 % High 5.0-12.0 [facility] Comment on above: Order Comment: No: D o not add to previous draw Performed By: #### 8 [id number] #### [facility] [address] [place] [id number], [facility] Neutrophils/100 WBC (Bld) 69.9 % Normal 40.0-72.0 [facility] Comment on above: Order Comment: No: D o not add to previous draw Performed By: #### 8 [id number] #### [facility] [address] [place] [id number], [facility] Nucleated RBC/100 WBC (Bld) [Ratio] 0 % Normal 0-0 [facility] Comment on above: Order Comment: No: D o not add to previous draw Performed By: #### 8 [id number] #### [facility] [address] [place] [address], [place] PLAT CNT 292 10*3/uL Normal 150-400 [facility] Comment on above: Order Comment: No: D o not add to previous draw Performed By: #### 8 [id number] #### [facility] [address] [place] [address], [facility] RBC (Bld) [#/Vol] 3.82 10*6/uL Low 4.20-5.70 [facility] Comment on above: Order Comment: No: D o not add to previous draw Performed By: #### 8 [id number] #### [facility] [address] [place] [address], [facility] WBC (Bld) [#/Vol] 11.28 10*3/uL High 4.00-10.60 [facility] Comment on above: Order Comment: No: D o not add to previous draw Performed By: #### 8 [id number] #### [facility] [address] [place] [address], [facility] COMP METABOLIC PANELon 07-14 Albumin [Mass/Vol] 3.1 g/dL Low 3.5-5.7 [facility] Comment on above: Order Comment: No: D o not add to previous draw Performed By: #### 8 [id number] #### [facility] [address] [place] [address], [facility] ALKALINE PHOSPH 77 IU/L Normal 34-104 [facility] Comment on above: Order Comment: No: D o not add to previous draw Performed By: #### 8 [id number] #### [facility] [address] [place] [address], [place] ALT [Catalytic activity/Vol] 8 U/L Normal 7-52 [facility] Comment on above: Order Comment: No: D o not add to previous draw Performed By: #### 8 [id number] #### [facility] [address] [place] [address], [place] AST [Catalytic activity/Vol] 11 U/L Low 13-39 [facility] Comment on above: Order Comment: No: D o not add to previous draw Performed By: #### 8 [id number] #### [facility] [address] [place] [address], [place] Bilirubin [Mass/Vol] 0.3 mg/dL Normal 0.3-1.0 [facility] Comment on above: Order Comment: No: D o not add to previous draw Performed By: #### 8 [id number] #### [facility] [address] [place] [address], [place] Calcium [Mass/Vol] 8.8 mg/dL Normal 8.6-10.3 [facility] Comment on above: Order Comment: No: D o not add to previous draw Performed By: #### 8 [id number] #### [facility] [address] [place] [address], [place] Chloride [Moles/Vol] 101 mmol/L Normal 98-107 [facility] Comment on above: Order Comment: No: D o not add to previous draw Performed By: #### 8 [id number] #### [facility] [address] [place] [address], [place] CO2 [Moles/Vol] 22 mmol/L Normal 21-31 [facility] Comment on above: Order Comment: No: D o not add to previous draw Performed By: #### 8 [id number] #### [facility] [address] [place] [address], [place] Creatinine [Mass/Vol] 3.38 mg/dL High 0.70-1.30 [facility] Comment on above: Order Comment: No: D o not add to previous draw Performed By: #### 8 [id number] #### [facility] [address] [place] [address], [place] eGFR- 23 ml/min/1.73sq m Abnormal >60 [facility] Comment on above: Order Comment: No: D o not add to previous draw Performed By: #### 8 [id number] #### [facility] [address] [place] [address], [place] eGFR- non- 19 ml/min/1.73sq m Abnormal >60 [facility] Comment on above: Order Comment: No: D o not add to previous draw Performed By: #### 8 [id number] #### [facility] [address] [place] [address], [place] Glucose [Mass/Vol] 324 mg/dL High 70-100 [facility] Comment on above: Order Comment: No: D o not add to previous draw Performed By: #### 8 [id number] #### [facility] [address] [place] [address], [place] Potassium [Moles/Vol] 4.5 mmol/L Normal 3.5-5.1 [facility] Comment on above: Order Comment: No: D o not add to previous draw Performed By: #### 8 [id number] #### [facility] [address] [place] [address], [place] Protein [Mass/Vol] 6.7 g/dL Normal 6.0-8.3 [facility] Comment on above: Order Comment: No: D o not add to previous draw Performed By: #### 8 [id number] #### [facility] [address] [place] [address], [place] Sodium [Moles/Vol] 131 mmol/L Low 136-145 [facility] Comment on above: Order Comment: No: D o not add to previous draw Performed By: #### 8 [id number] #### [facility] [address] [place] [address], [place] Urea nitrogen [Mass/Vol] 27 mg/dL High 7-25 [facility] Comment on above: Order Comment: No: D o not add to previous draw Performed By: #### 8 [id number] #### [facility] [address] [place] [address], [place] CREATININE URINE RANDOMon Creatinine (U) [Mass/Vol] 101.0 mg/dL Normal [facility] Comment on above: Order Comment: No: D o not add to previous draw Result Comment: Ther e are no established reference values for random urine specimens Performed By: #### 8 [id number] #### [facility] [address] [place] [address], [place] FLUID CELL COUNTon 1 Basophils/100 WBC (Bld) 1 % Normal [facility] Comment on above: Performed By: #### 8 [id number] #### [facility] [address] [place] [address], [place] Eosinophils/100 WBC (Bld) 11 % Normal [facility] Comment on above: Performed By: #### 8 [id number] #### [facility] [address] [place] [address], [place] Lymphocytes/100 WBC (Bld) 49 % Normal [facility] Comment on above: Performed By: #### 8 [id number] #### [facility] [address] [place] [address], [place] MESOTHELIAL 12 % Normal [facility] Comment on above: Performed By: #### 8 [id number] #### [facility] [address] [place] [address], [place] OTHER F1 Diff done by cytospin Normal [facility] Comment on above: Performed By: #### 8 [id number] #### [facility] [address] [place] [address], [facility] OTHER F3 Checked by Evelyn Rodriguez M.D. Normal [facility] Comment on above: Result Comment: Resu lt changed by ERR on 07/15/2020 13:33. The previous value was Preliminary report; verified report to follow. Performed By: #### 8 [id number] #### [facility] [address] [place] [address], [place] RBC [address] RBC/uL Normal [facility] Comment on above: Performed By: #### 8 [id number] #### [facility] [address] [place] [address], [place] SEGS 27 % Normal [facility] Comment on above: Performed By: #### 8 [id number] #### [facility] [address] [place] [address], [place] SOURCE Thoracentesis Normal [facility] Comment on above: Performed By: #### 8 [id number] #### [facility] [address] [place] [address], [facility] TOTAL VOLUME 1L Normal [facility] Comment on above: Performed By: #### 8 [id number] #### [facility] [address] [place] [address], [place] WBC 1762 WBC/uL Normal [facility] Comment on above: Result Comment: Some reference interval(s) and other method performance specifications have not been established for analytes on this body fluid. The test result must be integrated into the clinical context for interpretation. Performed By: #### 8 [id number] #### [facility] [address] [place] [address], [facility] GLUCOSE FLUID MISCon 021 Glucose [Mass/Vol] 326 mg/dL Normal [facility] Comment on above: Result Comment: The reference range and other method performance specifications have not been established for this test in fluids. the test result should be integrated into the clinical context for interpretation. Performed By: #### 3 4 #### [facility] [address] [place] [address], [facility] HEMOGLOBIN A1Con 07-14-2020 Glucose [Moles/Vol] 295 mmol/L Normal [facility] Comment on above: Order Comment: Left Peural Effusion Performed By: #### 3 8 #### [facility] [address] [place] [address], [facility] HbA1c (Bld) [Mass fraction] 11.9 % High 4.0-6.0 [facility] Comment on above: Order Comment: Left Peural Effusion Performed By: #### 3 8 #### [facility] [address] [place] [address], [place] HEPATITIS B SURFACE ANTIGEN QUALon 07-14-2020 HEP B SURF AG QUAL Non-Reactive Normal NONREACTIVE [facility] Comment on above: Order Comment: No: D o not add to previous draw Performed By: #### 3 1943 #### [facility] [address] [place] [address], [facility] HEPATITIS C ANTIBODYon 07-14 ANTI-HCV Non-Reactive Normal NONREACTIVE [facility] Comment on above: Order Comment: No: D o not add to previous draw Performed By: #### 3 1943 #### [facility] [address] [place] [address], [place] LDH BLOODon 07-14-2020 LDH 176 Units/L Normal 140-271 [facility] Comment on above: Order Comment: Left Peural Effusion Performed By: #### 3 0318 #### [facility] [address] [place] [address], [place] LDH 133 Units/L Low 140-271 [facility] Comment on above: Order Comment: No: D o not add to previous draw Performed By: #### 8 [id number] #### [facility] [address] [place] [address], [place] LDH FLUIDon 07-14-2020 LDH 212 Units/L Normal [facility] Comment on above: Result Comment: The reference range and other method performance specifications have not been established for this test in fluids. the test result should be integrated into the clinical context for interpretation. Performed By: #### 3 4 #### [facility] [address] [place] [address], [place] LIPID PROFILEon 07-14-2020 Cholesterol [Mass/Vol] 95 mg/dL Low 120-200 [facility] Comment on above: Order Comment: No: D o not add to previous draw Result Comment: CHOL ESTEROL REFERENCE RANGE: 20 YEARS AND OLDER CARDIOVASCULAR RISK Less than 200 mg/dl Low Risk 200 to 239 mg/dl Borderline Risk 240 mg/dl and greater High Risk Performed By: #### 8 [id number] #### [facility] [address] [place] [address], [facility] Cholesterol in HDL [Mass/Vol] 36 mg/dL Normal 23-92 [facility] Comment on above: Order Comment: No: D o not add to previous draw Result Comment: Slig ht variation in normal range could be due to gender and/or age. HDL CHOLESTEROL REFERENCE RANGE: 20 years and older Cardiovascular Risk > or =60 mg/dL Desirable 40 TO 59 mg/dL Low Risk <40 mg/dL High Risk Performed By: #### 8 [id number] #### [facility] [address] [place] [address], [place] Cholesterol in LDL [Mass/Vol] 37 mg/dL Normal 0-130 [facility] Comment on above: Order Comment: No: D o not add to previous draw Result Comment: LDL IS A CALCULATION LDL IS ONLY VALID IF THE TRIG IS LESS THAN 400. Performed By: #### 8 [id number] #### [facility] [address] [place] [address], [facility] Cholesterol.total/C holesterol in HDL [Mass ratio] 2.6 {ratio} Normal 0.0-4.5 [facility] Comment on above: Order Comment: No: D o not add to previous draw Performed By: #### 8 [id number] #### [facility] [address] [place] [address], [place] NON-HDL CHOLESTEROL 59 mg/dL Normal [facility] Comment on above: Order Comment: No: D o not add to previous draw Performed By: #### 8 [id number] #### [facility] [address] [place] [address], [place] Triglyceride [Mass/Vol] 109 mg/dL Normal 40-149 [facility] Comment on above: Order Comment: No: D o not add to previous draw Result Comment: TRIG LYCERIDE REFERENCE RANGE: 20 YEARS AND OLDER CARDIOVASCULAR RISK LESS THAN 150 mg/dl LOW RISK 150 TO 199 mg/dl BORDERLINE RISK 200 mg/dl AND GREATER HIGH RISK Performed By: #### 8 [id number] #### [facility] [address] [place] [address], [place] VLDL CHOL 22 mg/dL Normal 0-40 [facility] Comment on above: Order Comment: No: D o not add to previous draw Performed By: #### 8 [id number] #### [facility] [address] [place] [address], [place] MAGNESIUM BLOODon 07-14-2020 Magnesium [Mass/Vol] 2.1 mg/dL Normal 1.9-2.7 [facility] Comment on above: Order Comment: No: D o not add to previous draw Performed By: #### 8 [id number] #### [facility] [address] [place] [address], [place] Magnesium [Mass/Vol] 2.0 mg/dL Normal 1.9-2.7 [facility] Comment on above: Performed By: #### 8 [id number] #### [facility] [address] [place] [address], [place] PHOSPHORUS BLOODon Phosphate [Mass/Vol] 4.1 mg/dL Normal 2.5-5.0 [facility] Comment on above: Order Comment: No: D o not add to previous draw Performed By: #### 8 [id number] #### [facility] [address] [place] [address], [place] Phosphate [Mass/Vol] 4.0 mg/dL Normal 2.5-5.0 [facility] Comment on above: Performed By: #### 8 [id number] #### [facility] [address] [place] [address], [place] POC GLUCOSE LABon 07-14-2020 Glucose [Mass/Vol] 180 mg/dL High 70-100 [facility] Comment on above: Performed By: #### 8 [id number] ####[facility] [place] [address], [place] Glucose [Mass/Vol] 198 mg/dL High 70-100 [facility] Comment on above: Performed By: #### 5 7307, 98884 #### [facility] [address] [place] [address], [place] Glucose [Mass/Vol] 265 mg/dL High 70-100 [facility] Comment on above: Performed By: #### 8 [id number] #### [facility] [address] [place] [address], [facility] Glucose [Mass/Vol] 305 mg/dL High 70-100 [facility] Comment on above: Performed By: #### 5 7307, [id number] #### [facility] [address] [place] [address], [facility] Glucose [Mass/Vol] 301 mg/dL High 70-100 [facility] Comment on above: Performed By: #### 5 0103 #### [facility] [address] [facility] [place] [address], [facility] PORTABLE CHEST 1 VIEWon 06-27 PORTABLE CHEST 1 VIEW [facility] of Radiology [address] [place] [id number] Patient Name: RASHARD LYMAN : 1960 Sex: M Age: Race: White Pt. Location: [address] [place] [address] Patient Status: I Ordered Date: 07/14/2020 1:40:00 [...] above Electronically signed: Patricia Damon. Transcribed by: [email or web address], User Resident: Electronically Signed by: PATRICIA DAMON @ 07/14/2020 03:24 PM Normal [facility] Comment on above: Order Comment: Evalu ate for Pneumothorax PORTABLE CHEST 1 VIEW [facility] Department of Radiology [address] [place] [id number] Patient Name: RASHARD LYMAN : 1960 Sex: M Age: Race: White Pt. Location: [address] [place] [address] Patient Status: I Ordered Date: 07/13/2020 11:35:00 [...] reports Electronically signed: Valdemar Foster. Transcribed by: [email or web address], User Resident: SY MOFFETT Electronically Signed by: VALDEMAR FOSTER @ 07/14/2020 06:31 AM I personally read this/these film(s) with this resident Normal [facility] Comment on above: Order Comment: evalu ate for Effusion PROTEIN ELECT Truong 07-14-2020 Protein [Mass/Vol] 6.0 g/dL Normal 6.0-8.3 [facility] Comment on above: Performed By: #### 3 0318 #### [facility] [address] [place] [address], [place] PROTEIN ELECT Normal [facility] Comment on above: Result Comment: Decr eased albumin and elevated alpha 1 and 2 suggests acute inflammation. Performed By: #### 3 0318 #### [facility] [address] [place] [address], [place] PROTEIN ELECT URon 1 PROTEIN ELECT Urine protein electrophoresis suggests a nonselective nephropathy. Normal [facility] Comment on above: Performed By: #### 3 1944 #### [facility] [address] [place] [address], [place] PROTEIN TOTAL BLOODon 2020 Protein [Mass/Vol] 6.7 g/dL Normal 6.0-8.3 [facility] Comment on above: Order Comment: Left Peural Effusion Performed By: #### 3 0318 #### [facility] [address] [place] [address], [place] PROTHROMBIN TIMEon 1 INR Coag (PPP) [Relative time] 1.12 {INR} Normal 0.91-1.16 [facility] Comment on above: Order Comment: No: D [...] CHEST 1995;108:[id number]. Performed By: #### 5 7307, [id number] #### [facility] [address] [place] [address], [facility] PT Coag (PPP) [Time] 14.4 s Normal 12.3-14.8 [facility] Comment on above: Order Comment: No: D o not add to previous draw Result Comment: ALL RESULTS MUST BE INTERPRETED WITH RESPECT TO BLOOD DRAWING ARTIFACT OR DILUTION ERROR OF ANTICOAGULANT AT THE TIME OF SAMPLING. Performed By: #### 5 7307, [id number] #### [facility] [address] [place] [address], [facility] SEDIMENTATION RATEon 021 SED RATE 32 mm/hr High 0-10 [facility] Comment on above: Performed By: #### 8 [id number] #### [facility] [address] [place] [address], [facility] SODIUM URINE RANDOMon 2020 Sodium (U) [Moles/Vol] 59 mmol/L Normal [facility] Comment on above: Order Comment: No: D o not add to previous draw Result Comment: Ther e are no established reference values for random urine specimens Performed By: #### 8 [id number] #### [facility] [address] [place] [address], [facility] T PROT FLUIDon 07-14-2020 Protein [Mass/Vol] 3.6 g/dL Normal [facility] Comment on above: Result Comment: The reference range and other method performance specifications have not been established for this test in fluids. the test result should be integrated into the clinical context for interpretation. Performed By: #### 3 1944 #### [facility] [address] [place] [address], [facility] T PROT UR Loretta 07-14-2020 U TOTAL PROTEIN 859.0 mg/dL Normal [facility] Comment on above: Order Comment: No: D o not add to previous draw Result Comment: Ther e are no established reference values for random urine specimens Performed By: #### 8 [id number] #### [facility] [address] [place] [address], [facility] Performed By: #### 3 1944 #### [facility] [address] [place] [address], [facility] TROPONIN-Ion 07-14-2020 Troponin I.cardiac [Mass/Vol] 0.09 ng/mL High 0.00-0.04 [facility] Comment on above: Order Comment: No: D o not add to previous draw Result Comment: REFE RENCE RANGES: 0.00 - 0.04 ng/ml NORMAL 0.05 - 0.50 ng/ml INDETERMINATE > 0.50 ng/ml CONSISTENT WITH AN M.I. Performed By: #### 8 [id number] #### [facility] [address] [place] [address], [facility] Troponin I.cardiac [Mass/Vol] 0.07 ng/mL High 0.00-0.04 [facility] Comment on above: Order Comment: No: D o not add to previous draw Result Comment: REFE RENCE RANGES: 0.00 - 0.04 ng/ml NORMAL 0.05 - 0.50 ng/ml INDETERMINATE > 0.50 ng/ml CONSISTENT WITH AN M.I. Performed By: #### 8 [id number] #### [facility] [address] [place] [address], [facility] TSH3on 07-14-2020 TSH 3RD GENERATION 3.28 uIU/mL Normal 0.34-5.60 [facility] Comment on above: Order Comment: No: D o not add to previous draw Performed By: #### 8 [id number] #### [facility] [address] [place] [address], [facility] URIC ACID BLOODon 07-14-2020 Urate [Mass/Vol] 7.1 mg/dL Normal 4.4-7.6 [facility] Comment on above: Performed By: #### 8 [id number] #### [facility] [address] [place] [address], [place] URINALYSIS REFLEXon 07-15-19 21 Appearance (U) SL CLOUDY Abnormal CLEAR [facility] Comment on above: Order Comment: Left Peural Effusion Performed By: #### 3 0318 #### [facility] [address] [place] [address], [place] Bilirubin Ql (U) Negative Normal NEGATIVE [facility] Comment on above: Order Comment: Left Peural Effusion Performed By: #### 3 0318 #### [facility] [address] [place] [address], [place] Color (U) YELLOW Normal YELLOW [facility] Comment on above: Order Comment: Left Peural Effusion Performed By: #### 3 0318 #### [facility] [address] [place] [address], [place] EPIS FEW Normal FEW,OCC,NONE SEEN [facility] Comment on above: Order Comment: Left Peural Effusion Performed By: #### 3 0318 #### [facility] [address] [place] [address], [place] Glucose Ql (U) >=500 Abnormal NEGATIVE [facility] Comment on above: Order Comment: Left Peural Effusion Performed By: #### 3 0318 #### [facility] [address] [place] [address], [place] Hemoglobin Ql (U) TRACE Abnormal NEGATIVE [facility] Comment on above: Order Comment: Left Peural Effusion Performed By: #### 3 0318 #### [facility] [address] [place] [address], [place] KETONE TRACE Abnormal NEGATIVE [facility] Comment on above: Order Comment: Left Peural Effusion Performed By: #### 3 0318 #### [facility] [address] [place] [address], [place] LEUK JACIEL Negative Normal NEGATIVE [facility] Comment on above: Order Comment: Left Peural Effusion Performed By: #### 3 0318 #### [facility] [address] [place] [address], [facility] MUCUS THREADS OCC Abnormal NONE SEEN [facility] Comment on above: Order Comment: Left Peural Effusion Performed By: #### 3 0318 #### [facility] [address] [place] [address], [place] Nitrite Ql (U) Negative Normal NEGATIVE [facility] Comment on above: Order Comment: Left Peural Effusion Performed By: #### 3 0318 #### [facility] [address] [place] [address], [place] pH (U) 6.0 [pH] Normal 5.0-8.0 [facility] Comment on above: Order Comment: Left Peural Effusion Performed By: #### 3 0318 #### [facility] [address] [place] [address], [place] Protein Ql (U) >=500 Abnormal NEGATIVE [facility] Comment on above: Order Comment: Left Peural Effusion Performed By: #### 3 0318 #### [facility] [address] [facility] [place] [address], [facility] RBC 0-2 Abnormal NONE SEEN [facility] Comment on above: Order Comment: Left Peural Effusion Performed By: #### 3 0318 #### [facility] [address] [facility]. [address] SPEC GRAV 1.017 Normal 1.015-1.020 [facility] Comment on above: Order Comment: Left Peural Effusion Performed By: #### 3 0318 #### [facility] [address] [facility]. [address] WBC UA 3-5 Abnormal NONE SEEN [facility] Comment on above: Order Comment: Left Peural Effusion Performed By: #### 3 0318 #### [facility] [address] Vital Signs Date Time Vital Sign Value Performing Clinician Facility 03-21-2021 15:40-0500 Body height 193.04 cm Judahmani Gomesangela Other [facility] Other 03-21-2021 15:40-0500 Body mass index (BMI) [Ratio] 39.02 kg/m2 Judahmani Jaki Other [facility] Other 03-21-2021 15:40-0500 Body temperature 97.8 [degF] Kike Pollack Other [facility] Other 03-21-2021 15:40-0500 Body weight 145.42 kg Kike Pollack Other [facility] Other 03-21-2021 15:40-0500 Diastolic blood pressure 84 mm[Hg] Kike Pollack Other [facility] Other 03-21-2021 15:40-0500 Respiratory rate 18 /min Kike Pollack Other [facility] Other 03-21-2021 15:40-0500 SaO2% (BldA) [Mass fraction] 96 % Kike Pollack Other [facility] Other 03-21-2021 15:40-0500 Systolic blood pressure 137 mm[Hg] Kike Pollack Other [facility] Other 08-25-2020 12:24-0400 Heart rate 82 /min Jose Valone Work Phone: [facility] 08-25-2020 12:24-0400 Respiratory rate 20 /min Jose Valone Work Phone: [facility] 08-25-2020 11:17-0400 Body temperature 98.7 [degF] Jose Valone Work Phone: [facility] 08-25-2020 11:17-0400 Diastolic blood pressure 94 mm[Hg] Jose Valone Work Phone: [facility] 08-25-2020 11:17-0400 SaO2% (BldA) [Mass fraction] 96 % Jose Valone Work Phone: [facility] 08-25-2020 11:17-0400 Systolic blood pressure 183 mm[Hg] Jose Valone Work Phone: [facility] 08-25-2020 06:00-0400 Body weight 160.5 kg Jose Valone Work Phone: [facility] 08-19-2020 14:17-0400 Body height 193.04 cm Jose Valone Work Phone: [facility] 08-18-2020 21:22-0400 Body height 193.04 cm Jose Valone Work Phone: [facility] 08-18-2020 21:22-0400 Body mass index (BMI) [Ratio] 43.8 kg/m2 Jose Forteone Work Phone: [facility] 08-18-2020 21:22-0400 Body temperature 97.6 [degF] Jose Forteone Work Phone: [facility] 08-18-2020 21:22-0400 Body weight 163.3 kg Jose Forteone Work Phone: [facility] 08-18-2020 21:22-0400 Diastolic blood pressure 80 mm[Hg] Jose Valone Work Phone: [facility] 08-18-2020 21:22-0400 Heart rate 105 /min Jose Forteone Work Phone: [facility] 08-18-2020 21:22-0400 Respiratory rate 18 /min Jose Juarez Work Phone: [facility] 08-18-2020 21:22-0400 SaO2% (BldA) [Mass fraction] 94 % Jose Juarez Work Phone: [facility] 08-18-2020 21:22-0400 Systolic blood pressure 160 mm[Hg] Jose Juarez Work Phone: [facility] Encounters Encounter Date Encounter Type Care Provider Facility Start: 12-16-2023 End: 12-16-2023 ambulatory JOSE JUAREZ [facility] Start: 11-19-2023 End: 11-19-[address] [facility] Start: 10-23-2023 End: 10-23-2023 ambulatory JOSE JUAREZ [facility] Start: 09-03-2023 End: 09-03-2023 ambulatory JOSE JUAREZ [facility] Start: 07-31-2023 End: 07-31-2023 ambulatory JOSE JUAREZ [facility] Start: 07-02-2023 End: 07-02-2023 ambulatory JOSE JUAREZ [facility] Start: 06-04-2023 End: 06-04-2023 ambulatory JOSE JUAREZ [facility] Start: 05-31-2023 End: 06-01-2023 [facility] Start: 05-06-2023 End: 05-06-2023 ambulatory JOSE JUAREZ [facility] Start: 04-19-2023 End: 04-19-2023 ambulatory [facility] Start: 02-27-2023 End: 02-28-2023 ambulatory CHINO Hopson [facility] Start: 09-11-2022 End: 09-12-2022 ambulatory CHINO Hopson [facility] Facility:H1 Start: 08-28-2022 End: 08-29-2022 ambulatory CHINO Hopson [facility] Facility:H1 Start: 08-24-2022 End: 08-25-[address] JOSE JUAREZ Facility:H1 Start: 08-20-2022 End: 08-21-[address] JOSE JUAREZ Facility:H1 Start: 08-19-2022 Encounter for preprocedural cardiovascular examination [facility] Start: 08-19-2022 Encounter for preprocedural laboratory examination [facility] Start: 08-19-2022 Encounter for preprocedural respiratory examination [facility] Start: 08-15-2022 End: 08-16-[address] [...] End: 12-16-2021 ambulatory CHINO Mark Anthony [facility] Facility:H1 Start: 12-11-2021 End: 12-12-2021 ambulatory CHINO [facility] Facility:H1 Start: 11-30-2021 End: 12-01-[address] CARLOS EDUARDO SU . Facility:H1 Start: 11-22-2021 End: 11-23-[address] CARLOS EDUARDO SU . Facility:H1 Start: 11-21-2021 End: 11-22-2021 ambulatory CHINO Mark Anthony [facility] Facility:H1 Start: 11-14-[address] CARLOS EDUARDO SU . Faci lity:H1 Start: 11-13-2021 End: 11-14-2021 ambulatory CHINO [facility] Facility:H1 Start: 11-07-2021 End: 11-08-2021 ambulatory CHINO [facility] Facility:H1 Start: 10-31-2021 End: 11-01-2021 ambulatory CHINO [facility] Facility:H1 Start: 10-24-2021 End: 10-25-2021 ambulatory CHINO [facility] Facility:H1 Start: 10-17-2021 End: 10-18-2021 ambulatory CHINO [facility] Facility:H1 Start: 10-09-2021 End: 10-10-2021 ambulatory [facility] Facility:H1 Start: 03-21-2021 End: 03-21-2021 ambulatory Kike Pollack Other [facility] Other Start: 03-21-2021 Office outpatient vi sit 25 minutes Kike Pollack [facility] Start: 10-20-2020 End: 10-21-2020 ambulatory UNKNOWN PROVIDER Facility:[facility] Start: 09-28-2020 End: 09-28-2020 Patient encounter procedure Jose Juarez Work Phone: -[facility] Start: 09-06-2020 End: 09-06-2020 Patient encounter procedure Jose Juarez Work Phone: -Electrodiagnostics Start: 08-18-2020 End: 08-25-2020 Evaluation and management of inpatient Jose Juarez Work Phone: -[facility] Start: 07-13-2020 End: 07-22-2020 Evaluation and management of inpatient SARMED MERLENE Facility:[facility] Procedures Date Procedure Procedure Detail Performing [...] identified in Blood by Culture Blood Culture [facility] Patient referral [facility] Immunizations Immunization Date Immunization Notes Care Provider Fa cility 05-27-2015 influenza, seasonal, injectable Kike Pollack Other [facility] Other 05-27-2015 pneumococcal polysaccharide vaccine, 23 valent Kike Pollack Other [facility] Other Payers Date Payer Category Payer Unknown [id number] 1960 Unknown [id number] 2.16.8 40.1.164721.3.579.2.647 1960 Unknown [id number] 2.16. 840.1.406705.3.579.2.732 1960 Unknown [id number] 2.16.84 0.1.980140.3.579.2.593 1960 Unknown [id number] 2.16.84 0.1.594694.3.579.2.593 1960 Unknown [id number] 2.16.84 0.1.285811.3.579.2.593 1960 Unknown [id number] 2.16.84 0.1.615510.3.579.2.593 1960 Unknown [id number] 2.16.84 0.1.006592.3.579.2.593 1960 Unknown [id number] 2.16.84 0.1.833454.3.579.2.593 1960 Unknown [id number] 2.16.84 0.1.073747.3.579.2.593 1960 Unknown [id number] 2.16.84 0.1.181301.3.579.2.593 1960 Unknown [id number] 2.16.84 0.1.317219.3.579.2.593 1960 Unknown [id number] 2.16.84 0.1.962250.3.579.2.593 1960 Unknown [id number] 2.16.84 0.1.321732.3.579.2.593 1960 Unknown [id number] 2.16.84 0.1.262283.3.579.2.593 1960 Unknown [id number] 2.16.84 0.1.353402.3.579.2.593 1960 Unknown [id number] 2.16.84 0.1.665434.3.579.2.593 1960 Unknown [id number] 2.16.84 0.1.406282.3.579.2.593 1960 Unknown [id number] 2.16.84 0.1.874679.3.579.2.593 1960 Unknown [id number] 2.16.84 0.1.302982.3.579.2.593 1960 Unknown [id number] 2.16.84 0.1.427304.3.579.2.593 1960 Unknown [id number] 2.16.84 0.1.515013.3.579.2.593 1960 Unknown [id number] 2.16.84 0.1.704163.3.579.2.593 1960 Unknown [id number] 2.16.84 0.1.016282.3.579.2.593 1960 Unknown [id number] 2.16.84 0.1.790508.3.579.2.593 1960 Unknown [id number] 2.16.84 0.1.927747.3.579.2.593 1960 Unknown [id number] 2.16.84 0.1.553589.3.579.2.593 1960 Unknown [id number] 2.16.84 0.1.820934.3.579.2.593 1960 Unknown [id number] 2.16.84 0.1.340864.3.579.2.593 1960 Unknown [id number] 2.16.84 0.1.378162.3.579.2.593 1960 Unknown [id number] 2.16.84 0.1.389578.3.579.2.593 1960 Unknown [id number] 2.16.84 0.1.913764.3.579.2.593 1960 Unknown [id number] 2.16.84 0.1.473672.3.579.2.593 1960 Unknown [id number] 2.16.84 0.1.805247.3.579.2.593 1960 Unknown [id number] 2.16.84 0.1.878076.3.579.2.593 1960 Unknown [id number] 2.16.84 0.1.457680.3.579.2.593 1960 Unknown [id number] 2.16.84 0.1.911336.3.579.2.593 1960 Unknown [id number] 2.16.84 0.1.340897.3.579.2.593 1960 Unknown [id number] 2.16.84 0.1.209424.3.579.2.593 1960 Unknown [id number] 2.16.84 0.1.482004.3.579.2.593 1960 Unknown [id number] 2.16.84 0.1.287777.3.579.2.593 1960 Unknown [id number] 2.16.84 0.1.418272.3.579.2.593 1960 Unknown [id number] 2.16.84 0.1.397959.3.579.2.593 1960 Unknown [id number] 2.16.84 0.1.315882.3.579.2.593 1960 Unknown [id number] 2.16.84 0.1.495770.3.579.2.593 1960 Unknown [id number] 2.16.84 0.1.071307.3.579.2.593 1960 Unknown [id number] 2.16.84 0.1.090740.3.579.2.593 1960 Unknown [id number] 2.16.8 40.1.493398.3.579.2.1286 1960 Unknown [id number] 2.16.8 40.1.842503.3.579.2.1286 1960 Unknown [id number] 2.16.8 40.1.190439.3.579.2.1286 1960 Unknown [id number] 2.16.8 40.1.473016.3.579.2.1286 1960 Unknown [id number] 2.16.8 40.1.860171.3.579.2.1286 1960 Unknown [id number] 2.16.8 40.1.472458.3.579.2.1286 1960 Unknown [id number] 2.16.8 40.1.878639.3.579.2.1286 1960 Unknown [id number] 2.16.84 0.1.813688.3.579.2.1286 1960 Unknown [id number] 2.16.84 0.1.759018.3.579.2.1286 1959 Unknown [id number] Medicare Self Pay [id number] Self-pay Self Pay [id number] Social History Date Type Detail Facility Tobacco smoking status TXIS Unknown if ever smoked [facility] Start: 1960 Sex Assigned At Male F [facility] Start: 08-18-2020 Tobacco smoking status NHIS Unknown if ever smoked [facility] Start: 08-22-2020 Tobacco smoking status NHIS Never smoked tobacco (finding) [facility] Sex Assigned At Sex Assigned At [facility] Other Goals Date Patient Goal Desired Activity /State Functional Status Date Assessment Result Facility 08-25-2020 Functional status Patient at [facility] Mental Status Date Assessment Result Facility 08-25-2020 Cognitive function Cognitive Sta tus Patient at Baseline [facility] Clinical Notes 07-15-2020 to 08-20-2022 Note Date [...] authenticated by: PRISCA SANDERSON Date: 2022-08-20 13:00 [facility] 08-15-2022 Note EXAM: XR CHEST 2 V [...] authenticated by: CHINO CABALLERO Date: 2022-08-15 15:06 [facility] 08-01-2022 Note PROCEDURE: XR FOOT L T [...] authenticated by: JAMESON SALGUERO Date: 2022-08-01 07:49 [facility] 03-01-2022 Note CONSULTATION CONSULTATION DATE: 03/01/2022 This [...] with certain activities such as standing, walking, visual merchandising manager and 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 [facility] 03-01-2022 Note CONSULTATION PROCEDURE DATE: 03/01/2022 [...] pattern and patient tolerated procedure well. [facility] 12-22-2021 Note PROCEDURE: XR ANKLE LT [...] by: PRISCA SANDERSON Date: 2021-12-22 10:12 [facility] 12-22-2021 Note PROCEDURE: XR ANKLE LT [...] by: PRISCA SANDERSON Date: 2021-12-22 10:12 [facility] 12-22-2021 Note PROCEDURE: XR ANKLE LT [...] authenticated by: PRISCA SANDERSON Date: 2021-12-22 10:12 [facility] 12-22-2021 Note PROCEDURE: XR ANKLE LT 2V HISTORY: Pain ; left ankle external fixation application COMPARISON: None. FINDINGS: BONES:3 intraoperative spot fluoroscopic images demonstrate external fixation device surrounding the left ankle. IMPRESSION: External fixation device application. Electronically authenticated by: PRISCA SANDERSON Date: 2021-12-22 10:07 [facility] 12-12-2021 Note PROCEDURE: XR FOOT L T [...] authenticated by: PRISCA SANDERSON Date: 2021-12-12 08:04 [facility] 11-30-2021 Note CONSULTATION The patient returns to [...] in clinic in three months' time. [facility] 11-22-2021 Note CONSULTATION CONSULTATION DATE: 11/22/2021 [...] to the clinic to receive those. [facility] 11-14-2021 Note PROCEDURE: XR FOOT L [...] by: PRISCA SANDERSON Date: 2021-11-14 15:42 [facility] 11-07-2021 Note PROCEDURE: XR FOOT L [...] by: JAMESON SALGUERO Date: 2021-11-07 19:28 [facility] 03-21-2021 Evaluation note Encounter Date Diagnosis [...] takes midodrine as well as stated above. [facility] Other 03-27-2021 NoteMR#: [id number] Pt. Name: Rashard Lyman Admitted: 07/13/2020 Discharged: [...] chest pain. Also, there is mention on [facility] records of large inferior/lateral wall abnormality in [...] ON DISCHARGE: A (more content not included)...[facility]03-19-2021 NoteMR#: [id number] [facility] Pt. Name: Rashard Lyman Surgery Date: 07/14/2020 Room #: [id number] Date of : 1960 PROCEDURE NOTE ATTENDING: [...] Dr. Davis Pham MD Attending: Dr. Nima Wnyne MD Electronically Signed by: Nima Wynne MD 07/15/2020 04:23 P Nima Wynne MD I was present for the entire procedure. Date Dict: 07/15/2020/01:32 P/Davis Pham MD Date Trans: 07/15/2020 01:32 P/ [id number] cc: Nima Wynne MD [address] [place] [id number] Note[facility] [id number] [facility] Pt. Name: Rashard Lyman Surgery Date: 07/14/2020 Room #: [id number] Date of : 1960 PROCEDURE NOTE ATTENDING: Nima Wynne MD Procedure: Left sided US guided Thoracentesis Pre-procedure Diagnosis: Left pleural effusion Post-procedure Diagnosis: same as above Prior to Procedure: Informed Consent:The risks, benefits, indications, potential complications, and alternatives were explained to the patient/family and informed consent obtained Attending Staff: Nima Wynne Resident/Fellow/SELF RISING FLOUR MIXER: Davis Pham Indications: Nura Munoz is 60 [...] Wynne MD Date Trans: 07/15/2020 12:53 P/ [id number] Diagnosis Onset Date Resolution Status Hyperglycemia acute Pneumonia acute Psoriasis acute 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 acute CKD (chronic kidney disease) stage 4, GFR 15-29 ml/min chronic COPD (chronic obstructive pulmonary disease) chronic 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 GERD (gastroesophageal reflux disease) chronic Obesities, morbid chronic Peripheral vascular occlusive disease chronic Status post amputation of toe of right foot [facility] Diagnosis Onset Date Resolution Status MARISOL (acute kidney injury) ac [place] Anemia of renal disease acut e Atelectasis of left lung acu te Fibrothorax acute History of pleural effusion acute Metabolic acidosis acute Pericarditis acute Pleuritic chest pain acute Psoriasis acute 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 acute CKD (chronic kidney disease) stage 4, GFR 15-29 ml/min chronic COPD (chronic obstructive pulmonary disease) chronic 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 GERD (gastroesophageal reflux disease) chronic Hypertension chronic [id number] chronic Obesities, morbid chronic Peripheral vascular occlusive disease chronic Status post amputation of toe of right foot [facility] Narrative - Reported* Type Description [...] HIS LOWER BACK Hospitalization History see above [facility] Other Hospital Discharge instructions Additional Instructions You are scheduled for an outpatient follow up ECHOCARDIOGRAM in 2 weeks at [facility] to re-assess your pericardial effusions on [...] knee Educate on high risk fall precautions [facility] No Assessments Information Available [...] 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 GERD (gastroesophageal reflux disease) Hypertension [id number] Obesities, morbid Peripheral vascular occlusive disease Status [...] 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 GERD (gastroesophageal reflux disease) Hypertension [id number] Obesities, morbid Peripheral vascular occlusive disease Status [...] 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 GERD (gastroesophageal reflux disease) Hypertension [id number] Obesities, morbid Peripheral vascular occlusive disease Status [...] DATE CREATED AUTHOR 09/11/2020 [facility] DATE CREATED AUTHOR AUTHOR'S ORGANIZ ATION 10/21/2020 [facility] DATE CREATED AUTHOR AUTHOR'S ORGANIZ ATION 08/03/2021 [facility] DATE CREATED AUTHOR AUTHOR'S ORGANIZ ATION 10/05/2022 [facility] DATE CREATED AUTHOR AUTHOR'S ORGANIZ ATION 06/03/[address] [facility] DATE CREATED AUTHOR AUTHOR'S ORGANIZ ATION 11/22/2023 [facility] DATE CREATED AUTHOR AUTHOR'S ORGANSUDARSHAN ATTHEO 12/17/2023 [facility] Goals (unrecognized section and content) Goals may [...] BE BASED ON THE PRIMARY CLINICAL RECORDS. [facility] [employer] provides no warranty or guarantee of the accuracy or completeness of information in this document.
[2023-12-25] MEDS: OMEPRAZOLE 40 MG CAPSULE.DR PO (06:26)
[2023-12-25 07:36] LABS: Glucometer 224 mg/dL (74-106)
--- NOTE | 2023-12-25 08:09 | PM.HP ---
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 He reports his sugars have been running 200's. He has stopped using his long acting insulin because it was dropping him too far in the morning. He now uses only SSI. He follows with Dr. Baron and Dr. Zambrano (Wound clinic). He denies having a research and evaluation manager. He also has [facility] that comes weekly and they also made a note that his left lower leg was getting more red, swollen and painful and he came to the ER yesterday because of this. He denies fevers or chills. Is able to ambulate on that heel. He has limited pain due to his neuropathy. ER findings: Normal Lactate, WBC's 12, K 5.8, Cr 3.73. Patient was given insulin and kayexalte for hyperkalemia and started on Vanc and Zosyn for LLE cellulitis. Opioid HPI Opioid Management Most Recent Pain and Opioid Data: Last Pain Scale 5 12/25/23 08:13 Last Pain Assessment 12/25/23 11:59 Last ORT Total Score 0 12/24/23 18:56 Last ORT Risk Category Low Risk 12/24/23 18:56 Review of Systems ROS Narrative ROS: a complete review of systems were reviewed with patient and are positive as below or listed in History of Chief Complaint. General: no fever, chills, night sweats Head: no headache, trauma, visual changes, nausea or vomiting Skin: chronic diabetic ulcer bottom left foot, new redness on the LLE Eyes: no blurriness of vision Ears: no reported hearing loss, vertigo, earache, or tinnitus Throat: no sore throat, hoarseness, swelling of neck, or tongue pain Heart: no chest pain Lungs: no shortness of breath or cough GI: no diarrhea or vomiting/nausea Urinary: no urinary urgency, frequency or pain Neuro: numbness or tingling of both feet HEM: no bleeding issues or bruising ENDO: no thyroid problems Psych: no anxiety or depression PFSH PFSH Medical History (Updated 12/25/23 @ 12:38 by Christa Vazquez DO) Chronic wound ?T14.8XXA - Other injury of unspecified body region, initial encounter (ICD-10) Immunocompromised ?D84.9 - Immunodeficiency, unspecified (ICD-10) Psoriasis ?L40.9 - Psoriasis, unspecified (ICD-10) Sepsis ?A41.9 - Sepsis, unspecified organism (ICD-10) Arteriovenous fistula of right upper extremity ?I77.0 - Arteriovenous fistula, acquired (ICD-10) Chronic kidney disease ?N18.9 - Chronic kidney disease, unspecified (ICD-10) Hyperlipidemia ?E78.5 - Hyperlipidemia, unspecified (ICD-10) Diabetes ?E11.9 - Type 2 diabetes mellitus without complications (ICD-10) Cellulitis of left leg ?L03.116 - Cellulitis of left lower limb (ICD-10) Surgical History History of transmetatarsal amputation of foot ?Z89.439 - Acquired absence of unspecified foot (ICD-10) History of appendectomy ?Z90.49 - Acquired absence of other specified parts of digestive tract (ICD-10) History of cholecystectomy ?Z90.49 - Acquired absence of other specified parts of digestive tract (ICD-10) Amputation of left great toe ?S98.112A - Complete traumatic amputation of left great toe, initial encounter (ICD-10) Family History Mother Family history of CHF (congestive heart failure) Family history of diabetes mellitus Family history of hypertension Grandfather Family history of stroke Social History Within the past year, how often did you have a drink containing alcohol: never Within the past year, how many standard drinks containing alcohol did you have on a typical day: 1 or 2 Within the past year, how often did you have six or more drinks on one occasion: never Total score: 0 Score interpretation: A score less than 4 is consistent with normal alcohol consumption. Smoking status: Current some day smoker Non-prescribed substance use: denies use Previous occupational history: disabled Highest level of school completed/degree received: 11th grade Are you now , , , , never or living with a partner: In a typical week, how many times do you talk on the telephone with family, friends, or neighbors: 3 or more times per week How often do you get together with friends or relatives: 3 or more times per week How often do you attend confucianism or orthodoxy services: never Do you belong to any clubs or organizations such as confucianism groups unions, [employer] or athletic groups, or school groups: no Total score: 2 Score interpretation: A score of greater than or equal to 2 indicates the lowest level of social isolation. Little interest or pleasure in doing things: not at all Feeling down, depressed, or hopeless: not at all Feel stressed/tense/nervous/anxious/difficulty sleeping: not at all Do you think of yourself as: straight/heterosexual Gender Identity: male Meds Home Medications and Allergies Home Medications ?Medication ?Instructions ?Recorded ?Confirmed ?Type montelukast 10 mg tablet 10 mg PO .QHS 01/28/23 12/24/23 History rosuvastatin 20 mg tablet 20 mg PO QPM 01/28/23 12/24/23 History vitamin B complex and vitamin C 1 cap PO QDAY 01/28/23 12/24/23 History no.20-folic acid 1 mg capsule (Renal Caps) bupropion HCl 300 mg 24 hr tablet, 300 mg PO QDAY 12/24/23 12/24/23 History extended release esomeprazole magnesium 40 mg 40 mg PO QDAY 12/24/23 12/24/23 History capsule,delayed release finerenone 20 mg tablet (Kerendia) 20 mg PO QDAY 12/24/23 12/24/23 History multivitamin with minerals-folic 1 tab PO QDAY 12/24/23 12/24/23 History acid 400 mcg-lycopene 370 mcg tablet (One-A-Day Men's 50 Plus) sodium bicarbonate 325 mg tablet 325 mg PO TID 12/25/23 12/25/23 History Allergies Allergy/AdvReac Type Severity Reaction Status Date / Time No Known Drug Allergies Allergy Verified 12/24/23 15:49 Exam Narrative Exam Narrative: General: Patient is alert, and oriented to person, place and time with normal affect, proper hygiene Skin: 5mm x 5mm ulcer of the bottom of the left foot, some clear drainage. No surrounding erythema but erythema from the left ankle to just below the left knee. some minor abrasions seen, Missing all 5 toes of the left foot Head: atraumatic, acephalic Eyes: PERRLA, no nystagmus present, conjunctiva clear, no scleral icterus Ears: normal gross auditory acuity Heart: Normal rate and rhythm, no murmurs/rubs/gallops Lungs: no audible wheezes, crackles and normal breath sounds all lung sigala Abdomen: Normal audible bowel sounds, no distension, No palpable masses, no organomegaly, no rebound/guarding/ or rigidity Musculoskeletal: no swelling bilateral lower extremities Neuro: CN II-X grossly intact Constitutional Vital Signs, click to edit/add: Last Vital Signs Temp 97.7 F 12/25/23 04:00 Pulse 94 H 12/25/23 05:59 Resp 16 12/25/23 07:44 BP 144/75 H 12/25/23 04:00 Pulse Ox 98 12/25/23 04:00 O2 Del Method Room Air 12/25/23 04:00 Results Labs Labs: Short CBC 12/24/23 12/25/23 Range/Units 16:34 05:15 WBC 12.1 H 11.8 H (4.0-11.0) 10^3/uL Hgb 13.2 L 11.4 L (14.0-18.0) g/dL Hct 39.5 L 34.5 L (42.0-54.0) % Plt Count 257 216 (150-450) 10^3/uL BMP 12/24/23 12/25/23 16:34 05:15 Sodium 129 L 136 Potassium 5.8 H 4.9 Chloride 99 105 Carbon Dioxide 21.7 20.7 L BUN 51.0 H 51.0 H Creatinine 3.73 H 3.21 H Glucose 382 H 219 H Calcium 9.4 8.5 Liver Function 12/24/23 12/25/23 Range/Units 16:34 05:15 Total Bilirubin 0.4 0.4 (0.2-1.0) mg/dL AST 17 15 (15-37) U/L ALT 30 21 (16-63) U/L Alkaline Phosphatase 106 87 (46-116) U/L Albumin 2.5 L 2.0 L (3.4-5.0) g/dL Assessment and Plan Assessment and Plan (1) Cellulitis of left leg: Assessment and Plan: lactate normal, elevated WBC's. will get wound consult. XR with no signs of osteo. Most likely from hyperglycemia. Will continue Vanc and Zosyn, Get wound culture (2) Diabetic ulcer of left foot: Assessment and Plan: continue dressing changes, wound consult 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 involvement without evidence of necrosis (3) Hyperglycemia: Assessment and Plan: will check ha1c in the morning, continue with SSI (4) Acute hyperkalemia: Assessment and Plan: resolved this morning to 4.9 down from 5.8, will monitor. No telemetry changes. (5) CKD (chronic kidney disease): Assessment and Plan: has done dialysis 10 years ago and still has right fistula. Cr. 3.73 down to 3.21 Qualifiers: Chronic kidney disease stage: stage 4 (severe) Qualified Code(s): N18.4 - Chronic kidney disease, stage 4 (severe) (6) Hyperlipidemia: Assessment and Plan: continue statin Qualifiers: Hyperlipidemia type: unspecified Qualified Code(s): E78.5 - Hyperlipidemia, unspecified (7) Diabetes: Assessment and Plan: recheck ha1c, continue SSI, will add Levemir tomorrow after seeing what SSI to use Qualifiers: Diabetes mellitus type: type 2 Diabetes mellitus mcc insulin use: with superintendent container terminal use Diabetes mellitus complication status: with kidney complications Diabetes mellitus complication detail: with chronic kidney disease Chronic kidney disease stage: stage 4 (severe) Qualified Code(s): E11.22 - Type 2 diabetes mellitus with diabetic chronic kidney disease; N18.4 - Chronic kidney disease, stage 4 (severe); Z79.4 - superintendent container terminal (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 (8) Arteriovenous fistula of right upper extremity: Plan Patient is a full code Heparin for DVT prophylaxis patient is observation status, will cross 2 midnights for treatment of cellulitis.
[2023-12-25] MEDS: B COMPLEX/FOLIC ACID SOFTGEL CAPSULE 1 CAP PO (08:33)
[2023-12-25] MEDS: HEPARIN SODIUM (PORCINE) 5,000 UNIT/ML VIAL 5000 UNIT SUBQ ×2 (08:34→20:04)
[2023-12-25] MEDS: INSULIN ASPART 300 UNIT/3 ML PEN SUBQ ×4 (08:34→23:08)
--- NOTE | 2023-12-25 11:06 | SWNOTE1 ---
KATERIN met with pt to discuss dc needs. Pt lives at home with his . Pt has [facility] HH nurse coming in 3x a week for dressing changes. Pt is independent at home and does not use any DME. Pt has no concerns about discharge and he will resume HH at discharge.
[2023-12-25 11:09] LABS: Glucometer 237 mg/dL (74-106)
--- NOTE | 2023-12-25 11:34 | CM.NOTE ---
Rounds made with Dr. Vazquez, discussed with pt plan of care. Dr. Vazquez will reach out to Dr. Zambrano for recommendations. Dr. Vazquez changed pt's drsg to foot ulcer and outlined redness to extremity to follow any changes to LLE.
--- NOTE | 2023-12-25 13:42 | SWNOTE1 ---
KATERIN setn ED note, H&P, wound assessment, and med list to Tiesha COLEMAN.
[2023-12-25] MEDS: SODIUM BICARBONATE 325 MG TABLET PO ×2 (14:15→23:03)
[2023-12-25 16:21] LABS: Glucometer 234 mg/dL (74-106)
[2023-12-25] MEDS: VANCOMYCIN HCL 1,000 MG in 0.9 % SODIUM CHLORIDE 250 ML 250 MG IV (16:23)
[2023-12-25] MEDS: HYDRALAZINE HCL 20 MG/ML VIAL 10 MG IVP (20:02)
[2023-12-25] MEDS: MONTELUKAST SODIUM 10 MG TABLET PO (23:04)
[2023-12-25 23:07] LABS: Glucometer 291 mg/dL (74-106)
[2023-12-26] VITALS (19 sets, daily range): BP systolic 138–162; BP diastolic 59–88; PULSE 58–95; TEMP 36.5–36.6; O2SAT 95–98
[2023-12-26] MEDS: 0.9 % SODIUM CHLORIDE 1,000 ML 100 ML IV (01:43)
[2023-12-26] MEDS: SODIUM BICARBONATE 325 MG TABLET PO ×2 (05:33→14:07)
[2023-12-26] MEDS: OMEPRAZOLE 40 MG CAPSULE.DR PO (05:33)
[2023-12-26 06:18] LABS: Basophils Absolute Auto 0.1 10^3/uL (0.0-0.1); Basophils Percent Auto 0.7 % (0.2-2.0); Eosinophils Absolute Auto 0.5 10^3/uL (0.0-0.7); Eosinophils Percent Auto 5.1 % (0.9-7.0); Hematocrit 35.3 % (42.0-54.0); Hemoglobin 11.4 g/dL (14.0-18.0); Immature Granulocytes Abs Auto 0.13 10^3/uL (0.00-0.03); Immature Granulocytes Pct Auto 1.4 % (0.0-0.5); Lymphocytes Absolute Auto 2.2 10^3/uL (1.2-3.8); Lymphocytes Percent Auto 23.8 % (20.5-60.0); Mean Corpuscular HGB Conc 32.3 g/dL (29.9-35.2); Mean Corpuscular Volume 89.8 fL (80.0-94.0); Mean Platelet Volume 9.1 fL (9.5-13.5); Monocytes Absolute Auto 0.9 10^3/uL (0.3-0.8); Neutrophils Absolute Auto 5.4 10^3/uL (1.4-6.5); Platelet Count 230 10^3/uL (150-450); Red Blood Count 3.93 10^6/uL (4.70-6.10); White Blood Count 9.1 10^3/uL (4.0-11.0)
[2023-12-26 06:36] LABS: Alanine Aminotransferase 22 U/L (16-63); Albumin Globulin Ratio 0.5; Alkaline Phosphatase 82 U/L (46-116); Anion Gap 14.9; Aspartate Amino Transferase 18 U/L (15-37); BUN Creatinine Ratio 14.5; Bilirubin Total 0.4 mg/dL (0.2-1.0); Calcium 8.9 mg/dL (8.5-10.1); Carbon Dioxide 19.4 mmol/L (21.0-32.0); Chloride 106 mmol/L (98-107); Estimated GFR (African America 26 (>=60); Estimated GFR (Non-African Ame 22 (>=60); Globulin 3.8 g/dL; Glucose 303 mg/dL (74-106); Potassium 4.3 mmol/L (3.5-5.1); Sodium 136 mmol/L (136-145); Total Protein 5.8 g/dL (6.4-8.2)
[2023-12-26 06:41] LABS: Estimated Average Glucose 280 mg/dL; Glycohemoglobin A1C 11.4 % (4.5-6.2)
[2023-12-26 07:39] LABS: Glucometer 239 mg/dL (74-106)
--- NOTE | 2023-12-26 07:55 | P.DS_ITS ---
DS: Providers Provider Date of admission: 12/24/23 18:34 Primary care physician: GABRIEL JUAREZ DO Attending physician on admission: Christa Vazquez Consults: 12/24/23 18:07 Consult to Pharmacy Routine Consulting Provider: Felipa Rooney Reason for consultation: zosyn renal dosing for cellulitis Has provider been notified: Yes Discharging clinician: Christa Vazquez DS: Diagnosis Discharge Diagnosis (1) Cellulitis of left leg: (2) Diabetic ulcer of left foot: Qualifiers: Diabetes mellitus type: type 2 Diabetic foot ulcer location: midfoot Non-pressure ulcer stage: with muscle involvement without evidence of necrosis Qualified Code(s): E11.621 - Type 2 diabetes mellitus with foot ulcer; L97.425 - Non-pressure chronic ulcer of left heel and midfoot with muscle involvement without evidence of necrosis (3) Hyperglycemia: (4) Acute hyperkalemia: (5) CKD (chronic kidney disease): Qualifiers: Chronic kidney disease stage: stage 4 (severe) Qualified Code(s): N18.4 - Chronic kidney disease, stage 4 (severe) (6) Hyperlipidemia: Qualifiers: Hyperlipidemia type: unspecified Qualified Code(s): E78.5 - Hyperlipidemia, unspecified (7) Diabetes: Qualifiers: Chronic kidney disease stage: stage 4 (severe) Diabetes mellitus complication detail: with chronic kidney disease Diabetes mellitus complication status: with kidney complications Diabetes mellitus longwall shearer operator insulin use: with longwall shearer operator use Diabetes mellitus type: type 2 Qualified Code(s): E11.22 - Type 2 diabetes mellitus with diabetic chronic kidney disease; N18.4 - Chronic kidney disease, stage 4 (severe); Z79.4 - intermediate (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 (8) Arteriovenous fistula of right upper extremity: DS: Summary Hospital Course Hospital Course: Patient is a 63 year white male with past medical history of insulin dependent type 2 diabetes (noncompliant), Chronic Kidney Disease stage Stage IV, 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 He reports his sugars have been running 200's. He has stopped using his long acting insulin because it was dropping him too far in the morning. He now uses only SSI. He follows with Dr. Juarez and Dr. Zambrano (Wound clinic). 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 He also has [facility] that comes weekly and they also made a note that his left lower leg was getting more red, swollen and painful and he came to the ER because of this. He denies fevers or chills. Is able to ambulate on that heel. He has limited pain due to his neuropathy. ER findings: Normal Lactate, WBC's 12, K 5.8, Cr 3.73. Patient was given insulin and Kayexalate for hyperkalemia and started on Vanc and Zosyn for LLE cellulitis. Overnight patient did well, at the time of discharge patient has no complaints. Wound nurse came and dressed his wound. I will place him on Levemir 30units qhs along with SSI Novolog (that he is to continue from his home). ha1c was 11.9. There was many discrepancies on his medication list as retail did not match home so would encourage him to go over meds with pcp. I will place him on doxycycline 100mg BID x 10 days. He has close follow up with pcp and wound clinic. Return to the ER with any worsening signs or symptoms. Home health will continue to assist him with every other day dressing changes. Status at Discharge Functional status at discharge: independent ambulation Overall status at discharge: patient is back to baseline Time Spent with Patient Time attestation: Total time spent providing and/or coordinating discharge services: Time spent: greater than 30 minutes Exam Narrative Exam Narrative: General: Patient is alert, and oriented to person, place and time with normal affect, proper hygiene Skin: 5mm x 5mm ulcer of the bottom of the left foot, some clear drainage. No surrounding erythema but erythema from the left ankle to just below the left knee which has receded since yesterday from area demarcated. Some minor abrasions seen, Missing all 5 toes of the left foot Head: atraumatic, acephalic Eyes: PERRLA, no nystagmus present, conjunctiva clear, no scleral icterus Ears: normal gross auditory acuity Heart: Normal rate and rhythm, no murmurs/rubs/gallops Lungs: no audible wheezes, crackles and normal breath sounds all lung sigala Abdomen: Normal audible bowel sounds, no distension, No palpable masses, no organomegaly, no rebound/guarding/ or rigidity Musculoskeletal: no swelling bilateral lower extremities Neuro: CN II-X grossly intact Constitutional Vital Signs, click to edit/add: Last Vital Signs Temp 97.7 F 12/26/23 05:38 Pulse 83 12/26/23 06:00 Resp 18 12/26/23 05:38 BP 162/59 H 12/26/23 05:38 Pulse Ox 95 12/26/23 05:38 O2 Del Method Room Air 12/26/23 05:38 DS: Data Data Completed and Pending Labs on day of discharge: Labs from last 24 hours 12/26/23 12/26/23 12/25/23 07:38 05:33 23:02 WBC 9.1 RBC 3.93 L Hgb 11.4 L Hct 35.3 L MCV 89.8 MCH 29.0 MCHC 32.3 RDW 14.0 Plt Count 230 MPV 9.1 L Neut % (Auto) 59.0 Lymph % (Auto) 23.8 Lander % (Auto) 10.0 Eos % (Auto) 5.1 Baso % (Auto) 0.7 Neut # (Auto) 5.4 Lymph # (Auto) 2.2 Lander # (Auto) 0.9 H Eos # (Auto) 0.5 Baso # (Auto) 0.1 Abs Immat Gran (auto) 0.13 H Imm/Tot Granulo (auto) 1.4 H Sodium 136 Potassium 4.3 Chloride 106 Carbon Dioxide 19.4 L Anion Gap 14.9 BUN 43.0 H Creatinine 2.96 H Est GFR ( Amer) 26 L Est GFR (Non-Af Amer) 22 L BUN/Creatinine Ratio 14.5 Glucose 303 H Estimat Average Glucose 280 Hemoglobin A1c 11.4 H Calcium 8.9 Total Bilirubin 0.4 AST 18 ALT 22 Alkaline Phosphatase 82 Total Protein 5.8 L Albumin 2.0 L Globulin 3.8 Albumin/Globulin Ratio 0.5 POC Glucose 239 H 291 H 12/25/23 12/25/23 16:21 11:08 WBC RBC Hgb Hct MCV MCH MCHC RDW Plt Count MPV Neut % (Auto) Lymph % (Auto) Lander % (Auto) Eos % (Auto) Baso % (Auto) Neut # (Auto) Lymph # (Auto) Lander # (Auto) Eos # (Auto) Baso # (Auto) Abs Immat Gran (auto) Imm/Tot Granulo (auto) Sodium Potassium Chloride Carbon Dioxide Anion Gap BUN Creatinine Est GFR ( Amer) Est GFR (Non-Af Amer) BUN/Creatinine Ratio Glucose Estimat Average Glucose Hemoglobin A1c Calcium Total Bilirubin AST ALT Alkaline Phosphatase Total Protein Albumin Globulin Albumin/Globulin Ratio POC Glucose 234 H 237 H Discharge Plan Discharge Disposition: Home Health Service Condition: Fair Discharge Medications: New insulin aspart U-100 [Novolog FlexPen U-100 Insulin] 100 unit/mL (3 mL) Insulin Pen 3 - 15 unit subcut ACHS Qty: 15 0RF Rx Instructions: BG 141-200 = 3 UNITS 201-250 = 5 UNITS 251-300 = 8 UNITS 301-350 = 12 UNITS 351-400 = 15 UNITS BG GREATER THAN 400 = 15, CALL PHYSICIAN Levemir FlexPen 100 unit/mL (3 mL) Insulin Pen 30 unit subcut QHS 30 Days Qty: 9 0RF doxycycline monohydrate 100 mg capsule 100 mg PO BID 10 Days Qty: 20 0RF Continued montelukast 10 mg tablet 10 mg PO .QHS Renal Caps 1 mg capsule 1 cap PO QDAY rosuvastatin 20 mg tablet 20 mg PO QPM One-A-Day Men's 50 Plus 400-370 mcg tablet 1 tab PO QDAY bupropion HCl 300 mg tablet extended release 24 hr 300 mg PO QDAY esomeprazole magnesium 40 mg capsule,delayed release(DR/EC) 40 mg PO QDAY Kerendia 20 mg tablet 20 mg PO QDAY sodium bicarbonate 325 mg tablet 325 mg PO TID Activity: increase activity as tolerated Diet: diabetic diet Print Language: Beninese Jet Aircraft Servicer/Broadband Engineer Instructions: Aron Enverv, phone number is [phone] Forms: Portal Instructions Follow Up Appointments: Dr Juarez- office will call to schedule Wound Clinic- 12/30 @2:30pm
[2023-12-26] MEDS: INSULIN ASPART 300 UNIT/3 ML PEN SUBQ ×2 (09:11→12:22)
[2023-12-26] MEDS: BUPROPION HCL 150 MG XL TABLET 24H 300 MG PO (09:14)
[2023-12-26] MEDS: HEPARIN SODIUM (PORCINE) 5,000 UNIT/ML VIAL 5000 UNIT SUBQ (09:15)
--- NOTE | 2023-12-26 09:41 | CM.NOTE ---
Rounds made with Dr. Vazquez, pt will discharge to home this afternoon. Pt will need to f/u with primary care doctor. Pt is active with [facility] and plans to continue with HH services. Dr. Vazquez also discussed with pt A1C results and discharge medications. Pt verbalizes understanding.
--- NOTE | 2023-12-26 09:56 | W.PM.WC ---
Wound Consult Note Assessment and Plan (1) Cellulitis of left leg: (2) Diabetic ulcer of left foot: Reason for Consult: diabetic foot ulcer Assessment and Plan: Patient well known to wound care clinic was admitted due to worsening redness, swelling and pain to his LLE. His [facility] nurse called the wound care center with his change in condition and he was advised by AISHA Hart to report to the emergency department for evaluation due to the extent of cellulitis up to his knee. Today, marked area of cellulitis appears to be less and leg is less red and swollen per patient report today. Patient had been seen recently in the wound care center and his ulcer was extremely close to being healed at that time. Today, left plantar diabetic foot ulcer has reopened with callused periwound. Edges are irregular and rough. Wound bed does appear to be red/pink with no odor noted at this time. Drainage is minimal, serous drainage. Ulcer measures: 1.5cmx0.7cmx0.4cm. Dr. Vazquez at bedside to exam patient, states patient's a1c=11. 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 involvement without evidence of necrosis (3) Hyperglycemia: (4) Acute hyperkalemia: (5) CKD (chronic kidney disease): Qualifiers: Chronic kidney disease stage: stage 4 (severe) Qualified Code(s): N18.4 - Chronic kidney disease, stage 4 (severe) (6) Hyperlipidemia: Qualifiers: Hyperlipidemia type: unspecified Qualified Code(s): E78.5 - Hyperlipidemia, unspecified (7) Diabetes: Qualifiers: Diabetes mellitus type: type 2 Diabetes mellitus shelter insulin use: with shelter use Diabetes mellitus complication status: with kidney complications Diabetes mellitus complication detail: with chronic kidney disease Chronic kidney disease stage: stage 4 (severe) Qualified Code(s): E11.22 - Type 2 diabetes mellitus with diabetic chronic kidney disease; N18.4 - Chronic kidney disease, stage 4 (severe); Z79.4 - residential (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 (8) Arteriovenous fistula of right upper extremity: Plan Recommendations: Updated Dr. Zambrano on patient admission and need for wound debridement, periwound callus paring. Apply foam border dressing to left plantar foot. Keep area clean and dry. Change foam dressing every other to every 3 days. Monitor for drainage. Change more often as needed. Keep pressure off area with his off loading boot when ambulating. Photo in chart. Orders in chart. Follow up in wound center Dec 30 at 2:30 as scheduled. Call [phone] with any questions and concerns. Rohit Weinstein RN, CWON
--- NOTE | 2023-12-26 10:46 | CM.NOTE ---
Pt provided with diabetic education pamphlet. Pt is not a new diabetic but has had medication changes. Pt verbalizes understanding with changes. Pt will f/u with Med Management as outpatient. Pt also given diet education.
--- NOTE | 2023-12-26 11:46 | SWNOTE1 ---
Pt is discharging today. SW sent CRF, dc summary, dc med rec, and wound care note to Tiesha COLEMAN.
[2023-12-26 12:15] LABS: Glucometer 273 mg/dL (74-106)
--- NOTE | 2023-12-26 15:42 | PC.ADMIT ---
[email or web address] [facility] Admission Note: The patient,RASHARD TAN,63 y/o, was given written information regarding hospital policies, unit procedures and contact persons. Patient's smoking status: Current some day smoker. Vital Signs - 8 hr 12/26/23 07:50 12/26/23 08:00 12/26/23 08:00 Temperature Pulse Rate 80 80 Pulse Rate [Monitor] 81 Respiratory Rate 14 14 Blood Pressure [Left Arm] 138/86 Pulse Oximetry 96 96 Oxygen Delivery Method Room Air 12/26/23 08:01 12/26/23 10:00 12/26/23 11:32 Temperature Pulse Rate 85 78 Pulse Rate [Monitor] 81 Respiratory Rate 14 16 Blood Pressure [Left Arm] 140/88 Pulse Oximetry 96 96 Oxygen Delivery Method Room Air Room Air 12/26/23 12:00 12/26/23 12:33 12/26/23 13:40 Temperature Pulse Rate 80 86 Pulse Rate [Monitor] Respiratory Rate Blood Pressure [Left Arm] Pulse Oximetry 98 Oxygen Delivery Method Room Air 12/26/23 14:00 12/26/23 14:29 12/26/23 15:21 Temperature Pulse Rate 86 79 77 Pulse Rate [Monitor] Respiratory Rate Blood Pressure [Left Arm] Pulse Oximetry Oxygen Delivery Method 12/26/23 15:38 Temperature 97.9 F Pulse Rate 84 Pulse Rate [Monitor] Respiratory Rate 16 Blood Pressure [Left Arm] 153/83 H Pulse Oximetry 98 Oxygen Delivery Method Room Air
[2023-12-26] MEDS: VANCOMYCIN HCL 1,000 MG in 0.9 % SODIUM CHLORIDE 250 ML 250 MG IV (15:48)
--- NOTE | 2023-12-27 13:25 | CM.DCFOLLOWU ---
Person spoke with:patient How are you feeling? well How is your pain? none Did you understand your discharge instructions? yes Do you have any questions about your discharge instructions?no Were you given any prescriptions at discharge?yes Were you able to get your prescriptions filled?yes Do you understand how to take your medications as ordered?yes Do you have any questions about your follow up appointment and do you plan to keep your follow up appointment? no questions, all follow ups reviewed Is there anything else that you would like to discuss? no Questions/Comments/Concerns/Other: none
== END 2023-12-26 17:40 | disposition home health service (06) ==
LOC: ER 17:53 → ICU 20:45 → MS 12-25 06:36
PROVIDERS: Physician Assistant; Registered Nurse; Admitting Provider Family Medicine; Emergency Provider Emergency Medicine; PCP Internal Medicine; Visit Provider Family Medicine
DX: E11.628 Type 2 diabetes mellitus with other skin complications (principal); L03.116 Cellulitis of left lower limb; E87.5 Hyperkalemia; E11.65 Type 2 diabetes mellitus with hyperglycemia; E11.22 Type 2 diabetes mellitus with diabetic chronic kidney disease; N18.4 Chronic kidney disease, stage 4 (severe); Z89.432 Acquired absence of left foot; E11.621 Type 2 diabetes mellitus with foot ulcer; E11.40 Type 2 diabetes mellitus with diabetic neuropathy, unspecified; F17.200 Nicotine dependence, unspecified, uncomplicated; L97.425 Non-pressure chronic ulcer of left heel and midfoot with muscle involvement without evidence of necrosis; E78.5 Hyperlipidemia, unspecified; Z79.4 Long term (current) use of insulin; T38.3X6A Underdosing of insulin and oral hypoglycemic [antidiabetic] drugs, initial encounter; Z91.128 Patient's intentional underdosing of medication regimen for other reason
CPT/HCPCS: 36415; 73590; 73630; 80053; 82948; 83036; 83605; 83735; 84100; 85025; 87040; 87070; 87075; 87150; 93005; 94761; 96361; 96365; 96366; 96372; 96375; 96376; 99285; G0378; J0360; J1644; J1817; J2543; J3370

== ENCOUNTER 2023-12-31 14:41 | Outpatient (OUT) | payer BC, SELFPAY ==
--- NOTE | 2023-12-31 | XR_ITS ---
The [address] [address] Patient Name: RASHARD TAN MRN: [id number] date: 1960 Sex: M Assigned Patient Location: Current Patient Location: Accession/Order Number: [id number] Exam Date: 12/31/2023 14:45 Report Date: 01/01/2024 12:51 At the request of: TRACY COE Procedure: XR foot LT min 3V PROCEDURE: XR foot LT min 3V HISTORY: LEFT FOOT PAIN COMPARISON: XR foot left 12/24/2023 FINDINGS: BONES:Prior amputation of the forefoot. Marked degenerative changes of the midfoot and hindfoot. No appreciable fracture. SOFT TISSUES:Soft tissue swelling surrounding the foot. Soft tissue calcification along the Achilles tendon appears heterotopic bone formation from remote injury. Small calcaneal plantar spur. EFFUSION:None visible. OTHER: Negative. XR/XR foot LT min 3V IMPRESSION: 1. Stable forefoot amputation and marked degenerative changes. 2. Soft tissue swelling surrounding the foot. No appreciable change. Electronically authenticated by: PRISCA SANDERSON Date: 01/01/2024 12:51
== END 2023-12-31 14:42 | disposition home or self-care (01) ==
LOC: WC 14:41
PROVIDERS: PCP Internal Medicine; Visit Provider Physician Assistant
DX: M79.672 Pain in left foot (principal); E11.621 Type 2 diabetes mellitus with foot ulcer; L97.422 Non-pressure chronic ulcer of left heel and midfoot with fat layer exposed
CPT/HCPCS: 11043; 73630

== ENCOUNTER 2024-01-06 14:45 | Outpatient (OUT) | payer BC, SELFPAY | END 2024-01-06 14:46 | disposition home or self-care (01) | LOC: WC 14:45 | PROVIDERS: PCP Internal Medicine; Visit Provider Physician Assistant | DX: E11.621 Type 2 diabetes mellitus with foot ulcer (principal); L97.422 Non-pressure chronic ulcer of left heel and midfoot with fat layer exposed | CPT/HCPCS: 11043; 29445 ==

== ENCOUNTER 2024-01-14 15:03 | Outpatient (OUT) | payer BC, SELFPAY | END 2024-01-14 15:04 | disposition home or self-care (01) | LOC: WC 15:04 | PROVIDERS: PCP Internal Medicine; Visit Provider Physician Assistant | DX: E11.621 Type 2 diabetes mellitus with foot ulcer (principal); L97.422 Non-pressure chronic ulcer of left heel and midfoot with fat layer exposed | CPT/HCPCS: 29445 ==

== ENCOUNTER 2024-01-21 13:20 | Outpatient (OUT) | payer BC, SELFPAY ==
--- NOTE | 2024-01-21 | XR_ITS ---
The [address] [address] Patient Name: RASHARD TAN MRN: [id number] date: 1960 Sex: M Assigned Patient Location: Current Patient Location: Accession/Order Number: [id number] Exam Date: 01/21/2024 13:21 Report Date: 01/23/2024 06:45 At the request of: CHINO ELLIOTT Procedure: XR foot LT min 3V PROCEDURE: XR ankle LT min 3V, XR foot LT min 3V HISTORY: LEFT ANKLE PAIN COMPARISON: XR foot left 12/31/2023 FINDINGS: BONES:Prior forefoot amputation at level of the tarsal-metatarsal joints. Mild to moderate degenerative joint disease of the midfoot and ankle. No fracture, dislocation, or appreciable bone lesion. Large calcaneal plantar spur. Degenerative calcifications within the distal Achilles tendon. SOFT TISSUES:Defect within plantar soft tissues at level of the talus which extends proximally 7 mm into the soft tissues, but does not appear to contact the osseous structures. EFFUSION:None visible. OTHER: Negative. XR/XR foot LT min 3V IMPRESSION: 1. Persistent plantar soft tissue wound. 2. No evidence of osteomyelitis. Electronically authenticated by: PRISCA SANDERSON Date: 01/23/2024 06:45
--- NOTE | 2024-01-21 | XR_ITS ---
The [address] [address] Patient Name: RASHARD TAN MRN: [id number] date: 1960 Sex: M Assigned Patient Location: Current Patient Location: Accession/Order Number: [id number] Exam Date: 01/21/2024 13:21 Report Date: 01/23/2024 06:45 At the request of: CHINO ELLIOTT Procedure: XR ankle LT min 3V PROCEDURE: XR ankle LT min 3V, XR foot LT min 3V HISTORY: LEFT ANKLE PAIN COMPARISON: XR foot left 12/31/2023 FINDINGS: BONES:Prior forefoot amputation at level of the tarsal-metatarsal joints. Mild to moderate degenerative joint disease of the midfoot and ankle. No fracture, dislocation, or appreciable bone lesion. Large calcaneal plantar spur. Degenerative calcifications within the distal Achilles tendon. SOFT TISSUES:Defect within plantar soft tissues at level of the talus which extends proximally 7 mm into the soft tissues, but does not appear to contact the osseous structures. EFFUSION:None visible. OTHER: Negative. XR/XR ankle LT min 3V IMPRESSION: 1. Persistent plantar soft tissue wound. 2. No evidence of osteomyelitis. Electronically authenticated by: PRISCA SANDERSON Date: 01/23/2024 06:45
== END 2024-01-21 13:21 | disposition home or self-care (01) ==
LOC: WC 13:20
PROVIDERS: PCP Internal Medicine; Visit Provider Podiatrist Foot & Ankle Surgery
DX: M25.572 Pain in left ankle and joints of left foot (principal); M79.672 Pain in left foot; E11.621 Type 2 diabetes mellitus with foot ulcer; L97.422 Non-pressure chronic ulcer of left heel and midfoot with fat layer exposed
CPT/HCPCS: 11043; 73610; 73630; A6213

== ENCOUNTER 2024-01-30 12:57 | Outpatient (OUT) | payer BC, SELFPAY ==
--- NOTE | 2024-01-30 13:15 | MR_ITS ---
The [address] [address] Patient Name: RASHARD TAN MRN: [id number] date: 1960 Sex: M Assigned Patient Location: MRI Current Patient Location: MRI Accession/Order Number: [id number] Exam Date: 01/30/2024 13:30 Report Date: 01/31/2024 17:09 At the request of: CHINO ELLIOTT Procedure: MR ankle LT wo con EXAM: MR ankle LT wo con. HISTORY: Ulcer, chronic osteomyelitis. COMPARISON: 01/21/2024 TECHNIQUE: MRI images obtained with multiple sequences. MRI of the left ankle without contrast. Sequences obtained by standard department protocol. 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 There is an unstable osteochondral fragment measuring approximately 14 x 7 mm, there is partial undercutting of the osteochondral fragment with high signal/fluid. Subtalar joint in normal alignment. No significant degeneration of the subtalar joint. No definitive evidence for osteomyelitis. Extensor, flexor and peroneal tendons are intact at the level of the ankle. Achilles tendon is intact. Posterior aspect of the plantar fascia is intact. No other definitive acute fractures. Amputation of the forefoot at the level of the proximal metatarsals. MR/MR ankle LT wo con IMPRESSION: 1. No definitive evidence for osteomyelitis. 2. Distal tibia bone infarct. 3. 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 There is an osteochondral fragment measuring approximately 14 x 7 mm, there is partial undercutting of the osteochondral fragment with high signal/fluid. 4. Amputation of the forefoot at the level of the proximal metatarsals. Electronically authenticated by: SCOTTY DUVAL Date: 01/31/2024 17:09
[2024-01-30 13:37] LABS: Basophils Absolute Auto 0.1 10^3/uL (0.0-0.1); Basophils Percent Auto 0.4 % (0.2-2.0); Eosinophils Absolute Auto 0.5 10^3/uL (0.0-0.7); Eosinophils Percent Auto 4.2 % (0.9-7.0); Hematocrit 40.9 % (42.0-54.0); Hemoglobin 13.1 g/dL (14.0-18.0); Immature Granulocytes Abs Auto 0.22 10^3/uL (0.00-0.03); Immature Granulocytes Pct Auto 1.9 % (0.0-0.5); Lymphocytes Percent Auto 17.6 % (20.5-60.0); Mean Corpuscular Volume 90.5 fL (80.0-94.0); Monocytes Absolute Auto 0.8 10^3/uL (0.3-0.8); Monocytes Percent Auto 6.9 % (1.7-12.0); Neutrophils Absolute Auto 7.8 10^3/uL (1.4-6.5); Platelet Count 319 10^3/uL (150-450); Red Blood Count 4.52 10^6/uL (4.70-6.10); Red Cell Distribution Width 13.2 % (11.0-15.0); White Blood Count 11.3 10^3/uL (4.0-11.0)
[2024-01-30 13:45] LABS: Erythrocyte Sedimentation Rate >130 mm/hr (<=20)
[2024-01-30 13:47] LABS: Anion Gap 19.1; BUN Creatinine Ratio 10.9; C Reactive Protein 1.75 mg/dL (<=0.50); Carbon Dioxide 17.3 mmol/L (21.0-32.0); Chloride 98 mmol/L (98-107); Estimated GFR (African America 13 (>=60 mL/min/1.73m^2); Estimated GFR (Non-African Ame 10 (>=60 mL/min/1.73m^2); Glucose 378 mg/dL (74-106); Potassium 4.4 mmol/L (3.5-5.1); Sodium 130 mmol/L (136-145)
== END 2024-01-30 12:58 | disposition home or self-care (01) ==
LOC: MRI 12:59
PROVIDERS: PCP Internal Medicine; Visit Provider Podiatrist Foot & Ankle Surgery
DX: M86.672 Other chronic osteomyelitis, left ankle and foot (principal); L97.329 Non-pressure chronic ulcer of left ankle with unspecified severity; M93.272 Osteochondritis dissecans, left ankle and joints of left foot
CPT/HCPCS: 36415; 73721; 80048; 85025; 85652; 86140

== ENCOUNTER 2024-02-11 15:46 | Outpatient (OUT) | payer BC, SELFPAY | END 2024-02-11 15:47 | disposition home or self-care (01) | LOC: WC 15:46 | PROVIDERS: PCP Internal Medicine; Visit Provider Podiatrist Foot & Ankle Surgery | DX: E11.621 Type 2 diabetes mellitus with foot ulcer (principal); L97.422 Non-pressure chronic ulcer of left heel and midfoot with fat layer exposed | CPT/HCPCS: 11043 ==

== ENCOUNTER 2024-03-03 15:39 | Outpatient (OUT) | payer BC, SELFPAY | END 2024-03-03 15:40 | disposition home or self-care (01) | LOC: WC 15:39 | PROVIDERS: PCP Internal Medicine; Visit Provider Physician Assistant | DX: E11.621 Type 2 diabetes mellitus with foot ulcer (principal); L97.422 Non-pressure chronic ulcer of left heel and midfoot with fat layer exposed | CPT/HCPCS: 11043 ==

== ENCOUNTER 2024-03-10 14:48 | Outpatient (OUT) | payer BC, SELFPAY | END 2024-03-10 14:49 | disposition home or self-care (01) | LOC: WC 14:48 | PROVIDERS: PCP Internal Medicine; Visit Provider Physician Assistant | DX: E11.621 Type 2 diabetes mellitus with foot ulcer (principal); L97.422 Non-pressure chronic ulcer of left heel and midfoot with fat layer exposed | CPT/HCPCS: A6213; G0463 ==

== ENCOUNTER 2024-03-24 15:03 | Outpatient (OUT) | payer BC, SELFPAY | END 2024-03-24 15:04 | disposition home or self-care (01) | LOC: WC 15:03 | PROVIDERS: PCP Internal Medicine; Visit Provider Physician Assistant | DX: E11.621 Type 2 diabetes mellitus with foot ulcer (principal); L97.422 Non-pressure chronic ulcer of left heel and midfoot with fat layer exposed | CPT/HCPCS: 11043 ==

== ENCOUNTER 2024-04-07 14:57 | Outpatient (OUT) | payer BC, SELFPAY | END 2024-04-07 14:58 | disposition home or self-care (01) | LOC: WC 14:58 | PROVIDERS: PCP Internal Medicine; Visit Provider Physician Assistant | DX: E11.621 Type 2 diabetes mellitus with foot ulcer (principal); L97.422 Non-pressure chronic ulcer of left heel and midfoot with fat layer exposed | CPT/HCPCS: 11043 ==

== ENCOUNTER 2024-05-05 15:33 | Outpatient (OUT) | payer BC, SELFPAY | END 2024-05-05 15:34 | disposition home or self-care (01) | LOC: WC 15:33 | PROVIDERS: PCP Internal Medicine; Visit Provider Physician Assistant | DX: E11.621 Type 2 diabetes mellitus with foot ulcer (principal); L97.422 Non-pressure chronic ulcer of left heel and midfoot with fat layer exposed | CPT/HCPCS: 11043; 29445 ==

== ENCOUNTER 2024-05-11 15:58 | Outpatient (OUT) | payer BC, SELFPAY | END 2024-05-11 15:59 | disposition home or self-care (01) | LOC: WC 15:58 | PROVIDERS: PCP Internal Medicine; Visit Provider Podiatrist Foot & Ankle Surgery | DX: E11.621 Type 2 diabetes mellitus with foot ulcer (principal); L97.422 Non-pressure chronic ulcer of left heel and midfoot with fat layer exposed | CPT/HCPCS: G0463 ==

== ENCOUNTER 2024-05-14 15:06 | Outpatient (OUT) | payer BC, SELFPAY | END 2024-05-14 15:07 | disposition home or self-care (01) | LOC: WC 15:07 | PROVIDERS: PCP Internal Medicine; Visit Provider Physician Assistant | DX: E11.621 Type 2 diabetes mellitus with foot ulcer (principal); L97.422 Non-pressure chronic ulcer of left heel and midfoot with fat layer exposed | CPT/HCPCS: 11043 ==

== ENCOUNTER 2024-05-27 15:38 | Outpatient (OUT) | payer BC, SELFPAY | END 2024-05-27 15:39 | disposition home or self-care (01) | LOC: WC 15:38 | PROVIDERS: PCP Internal Medicine; Visit Provider Physician Assistant | DX: E11.621 Type 2 diabetes mellitus with foot ulcer (principal); L97.422 Non-pressure chronic ulcer of left heel and midfoot with fat layer exposed | CPT/HCPCS: 11043 ==

== ENCOUNTER 2024-06-10 14:53 | Outpatient (OUT) | payer BC, SELFPAY | END 2024-06-10 14:54 | disposition home or self-care (01) | LOC: WC 14:54 | PROVIDERS: PCP Internal Medicine; Visit Provider Physician Assistant | DX: E11.621 Type 2 diabetes mellitus with foot ulcer (principal); L97.422 Non-pressure chronic ulcer of left heel and midfoot with fat layer exposed | CPT/HCPCS: 11043 ==

== ENCOUNTER 2024-07-08 15:03 | Outpatient (OUT) | payer BC, SELFPAY | END 2024-07-08 15:04 | disposition home or self-care (01) | LOC: WC 15:03 | PROVIDERS: PCP Internal Medicine; Visit Provider Physician Assistant | DX: E11.621 Type 2 diabetes mellitus with foot ulcer (principal); L97.422 Non-pressure chronic ulcer of left heel and midfoot with fat layer exposed | CPT/HCPCS: 11043 ==

== ENCOUNTER 2024-08-12 14:00 | Outpatient (OUT) | payer BC, SELFPAY | END 2024-08-12 14:01 | disposition home or self-care (01) | LOC: WC 08-13 16:46 | PROVIDERS: PCP Internal Medicine; Visit Provider Physician Assistant | DX: E11.621 Type 2 diabetes mellitus with foot ulcer (principal); L97.422 Non-pressure chronic ulcer of left heel and midfoot with fat layer exposed | CPT/HCPCS: 11043 ==

== ENCOUNTER 2024-08-26 10:48 | Outpatient (OUT) | payer BC, SELFPAY | END 2024-08-26 10:49 | disposition home or self-care (01) | LOC: WC 10:48 | PROVIDERS: PCP Internal Medicine; Visit Provider Physician Assistant | DX: E11.621 Type 2 diabetes mellitus with foot ulcer (principal); L97.422 Non-pressure chronic ulcer of left heel and midfoot with fat layer exposed; L97.515 Non-pressure chronic ulcer of other part of right foot with muscle involvement without evidence of necrosis | CPT/HCPCS: G0463 ==

== ENCOUNTER 2024-08-26 11:23 | Inpatient (IN) | payer BC, SELFPAY ==
[2024-08-26 11:30] VITALS: BP 147/81; PULSE 92; TEMP 36.7; O2SAT 99; BMI 30.4
[2024-08-26] MEDS: 0.9 % SODIUM CHLORIDE 1,000 ML 100 ML IV (11:58)
[2024-08-26 12:05] LABS: Basophils Percent Auto 0.3 % (0.2-2.0); Eosinophils Absolute Auto 0.4 10^3/uL (0.0-0.7); Eosinophils Percent Auto 3.6 % (0.9-7.0); Hematocrit 33.1 % (42.0-54.0); Hemoglobin 10.7 g/dL (14.0-18.0); Immature Granulocytes Abs Auto 0.38 10^3/uL (0.00-0.03); Immature Granulocytes Pct Auto 3.1 % (0.0-0.5); Lymphocytes Percent Auto 16.1 % (20.5-60.0); Mean Corpuscular HGB Conc 32.3 g/dL (29.9-35.2); Mean Corpuscular Hemoglobin 29.3 pg (25.9-34.0); Mean Corpuscular Volume 90.7 fL (80.0-94.0); Mean Platelet Volume 8.5 fL (9.5-13.5); Monocytes Absolute Auto 1.2 10^3/uL (0.3-0.8); Monocytes Percent Auto 10.1 % (1.7-12.0); Neutrophils Absolute Auto 8.2 10^3/uL (1.4-6.5); Neutrophils Percent Auto 66.8 % (43.0-75.0); Platelet Count 342 10^3/uL (150-450); Red Blood Count 3.65 10^6/uL (4.70-6.10); Red Cell Distribution Width 13.3 % (11.0-15.0); White Blood Count 12.3 10^3/uL (4.0-11.0)
[2024-08-26] MEDS: PIPERACILLIN SODIUM/TAZOBACTAM 3.375 GM in 0.9 % SODIUM CHLORIDE 50 ML IV (12:07)
[2024-08-26 12:13] LABS: Erythrocyte Sedimentation Rate >130 mm/hr (<=20)
[2024-08-26 12:17] LABS: Alanine Aminotransferase 19 U/L (16-63); Albumin Globulin Ratio 0.4; Albumin Level 2.1 g/dL (3.4-5.0); Alkaline Phosphatase 87 U/L (46-116); Anion Gap 20.3; Aspartate Amino Transferase 18 U/L (15-37); BUN Creatinine Ratio 14.3; Bilirubin Total 0.3 mg/dL (0.2-1.0); Calcium 8.9 mg/dL (8.5-10.1); Carbon Dioxide 21.3 mmol/L (21.0-32.0); Chloride 99 mmol/L (98-107); Estimated GFR (African America 16 (>=60 mL/min/1.73m^2); Estimated GFR (Non-African Ame 13 (>=60 mL/min/1.73m^2); Glucose 353 mg/dL (74-106); Potassium 5.6 mmol/L (3.5-5.1); Sodium 135 mmol/L (136-145); Total Protein 7.1 g/dL (6.4-8.2)
--- NOTE | 2024-08-26 12:21 | PC.NURSE ---
Wound to right great toe, area has small amount of bright red bleeding, surrounding skin is moist and white in color. Right foot wound cleansed with saline covered with xeroform and wrapped in kerlex and ines wrap.
--- NOTE | 2024-08-26 12:23 | PC.NURSE ---
Left foot wound dressing changed at wound clinic just prior to arriving in ER, dressing left in place as patient reports dressing is changed every other day.
[2024-08-26 12:26] LABS: Lactate/Lactic Acid 2.4 mmol/L (0.4-2.0)
[2024-08-26 12:45] LABS: INR 1.05; Prothrombin Time 11.1 sec (9.0-11.6)
[2024-08-26] MEDS: VANCOMYCIN HCL 1,000 MG in 0.9 % SODIUM CHLORIDE 250 ML 250 MG IV (12:48)
--- NOTE | 2024-08-26 13:35 | ED.GENADUL1 ---
HPI HPI - General Adult General Chief complaint: Extremity Problem, Nontraumatic Stated complaint: RIGHT FOOT BIG TOE SWOLLEN, NO FEELING Time Seen by Provider: 08/26/24 11:25 Source: patient Mode of arrival: walk-in Limitations: no limitations History of Present Illness HPI narrative: Patient presents to ED for evaluation of right great toe infection. Patient was sent over from Dr. Zambrano and wound care. They requested that he was admitted. They requested CBC CMP sed rate CRP blood cultures lactate vancomycin and Zosyn. Patient knows that he is going to be admitted and n.p.o. after midnight for surgery tomorrow. Patient does not remember doing anything to his foot he has no feeling due to his peripheral neuropathy. thinks he stubbed it on something and there was a hole in the tip of the great toe and it now has festered into wound with pus and malodorous drainage. Patient denies any fever. He denies any pain. He has already had surgery on the left foot as well. He is diabetic and noncompliant Related Data Home Medications ?Medication ?Instructions ?Recorded ?Confirmed montelukast 10 mg tablet 10 mg PO .QHS 01/28/23 08/26/24 rosuvastatin 20 mg tablet 20 mg PO .QHS 01/28/23 08/26/24 vitamin B complex and vitamin C 1 cap PO QDAY 01/28/23 08/26/24 no.20-folic acid 1 mg capsule (Renal Caps) bupropion HCl 300 mg 24 hr tablet, 300 mg PO QDAY 12/24/23 08/26/24 extended release finerenone 20 mg tablet (Kerendia) 20 mg PO QDAY 12/24/23 08/26/24 multivitamin with minerals-folic 1 tab PO QDAY 12/24/23 08/26/24 acid 400 mcg-lycopene 370 mcg tablet (One-A-Day Men's 50 Plus) sodium bicarbonate 325 mg tablet 325 mg PO TID 12/25/23 08/26/24 duloxetine 60 mg capsule,delayed 60 mg PO .QHS 08/26/24 08/26/24 release empagliflozin 25 mg tablet 25 mg PO DAILY 08/26/24 08/26/24 (Jardiance) famotidine 20 mg tablet 20 mg PO .QHS 08/26/24 08/26/24 torsemide 20 mg tablet 40 mg PO QAM 08/26/24 Previous Rx's ?Medication ?Instructions ?Recorded insulin aspart U-100 100 unit/mL 3 - 15 unit (0.03 - 0.15 mL) 12/26/23 (3 mL) subcutaneous pen (Novolog subcut ACHS #15 mL FlexPen U-100 Insulin aspart) insulin detemir U-100 100 unit/mL 30 unit (0.3 mL) subcut QHS 30 12/26/23 (3 mL) subcutaneous pen (Levemir days #9 mL FlexPen) Allergies Allergy/AdvReac Type Severity Reaction Status Date / Time No Known Drug Allergies Allergy Verified 12/24/23 15:49 Opioid HPI Opioid Management Most Recent Opioid Data: Last Pain Scale 0 12/26/23, 14:08 Last ORT Total Score 0 12/24/23, 18:56 Last ORT Risk Category Low Risk 12/24/23, 18:56 Review of Systems ROS Status of ROS 10 or more systems reviewed and unremarkable except as noted in history and below [facility] Medical History (Updated 08/26/24 @ 13:39 by Ashli Morales DO) CKD (chronic kidney disease) ?N18.9 - Chronic kidney disease, unspecified (ICD-10) Chronic wound ?T14.8XXA - Other injury of unspecified body region, initial encounter (ICD-10) Immunocompromised ?D84.9 - Immunodeficiency, unspecified (ICD-10) Psoriasis ?L40.9 - Psoriasis, unspecified (ICD-10) Sepsis ?A41.9 - Sepsis, unspecified organism (ICD-10) Arteriovenous fistula of right upper extremity ?I77.0 - Arteriovenous fistula, acquired (ICD-10) Chronic kidney disease ?N18.9 - Chronic kidney disease, unspecified (ICD-10) Hyperlipidemia ?E78.5 - Hyperlipidemia, unspecified (ICD-10) Diabetes ?E11.9 - Type 2 diabetes mellitus without complications (ICD-10) Cellulitis of left leg ?L03.116 - Cellulitis of left lower limb (ICD-10) Surgical History History of transmetatarsal amputation of foot ?Z89.439 - Acquired absence of unspecified foot (ICD-10) History of appendectomy ?Z90.49 - Acquired absence of other specified parts of digestive tract (ICD-10) History of cholecystectomy ?Z90.49 - Acquired absence of other specified parts of digestive tract (ICD-10) Amputation of left great toe ?S98.112A - Complete traumatic amputation of left great toe, initial encounter (ICD-10) Family History Mother Family history of CHF (congestive heart failure) Family history of diabetes mellitus Family history of hypertension Grandfather Family history of stroke Social History Within the past year, how often did you have a drink containing alcohol: never Within the past year, how many standard drinks containing alcohol did you have on a typical day: 1 or 2 Within the past year, how often did you have six or more drinks on one occasion: never Total score: 0 Score interpretation: A score less than 4 is consistent with normal alcohol consumption. Smoking status: Current some day smoker Non-prescribed substance use: denies use Previous occupational history: disabled Highest level of school completed/degree received: 11th grade Are you now , , , , never or living with a partner: In a typical week, how many times do you talk on the telephone with family, friends, or neighbors: 3 or more times per week How often do you get together with friends or relatives: 3 or more times per week How often do you attend restoration or confucianist services: never Do you belong to any clubs or organizations such as restoration groups unions, fraternal or athletic groups, or school groups: no Total score: 2 Score interpretation: A score of greater than or equal to 2 indicates the lowest level of social isolation. Little interest or pleasure in doing things: not at all Feeling down, depressed, or hopeless: not at all Feel stressed/tense/nervous/anxious/difficulty sleeping: not at all Do you think of yourself as: straight/heterosexual Gender Identity: male Exam Narrative Exam Narrative: General: alert, no acute distress Cardiovascular: regular rate and rhythm, normal peripheral perfusion. Respiratory: Lungs CTA, respirations non labored. Extremities: Right great toe shows bloody and malodorous drainage from the distal tip. Infection spreading up to the MCP. No pain in the calf. No cellulitis extending up the leg. Neurological: oriented x 4, LOC appropriate for age. Constitutional Vital Signs, click to edit/add: Last Vital Signs Temp 98.1 F 08/26/24 11:30 Pulse 92 H 08/26/24 11:30 Resp 18 08/26/24 11:30 BP 147/81 H 08/26/24 11:30 Pulse Ox 99 08/26/24 11:30 O2 Del Method Room Air 08/26/24 11:30 Course Vital Signs Vital signs: Vital Signs Temperature 98.1 F 08/26/24 11:30 Pulse Rate 92 H 08/26/24 11:30 Respiratory Rate 18 08/26/24 11:30 Blood Pressure 147/81 H 08/26/24 11:30 Pulse Oximetry 99 08/26/24 11:30 Oxygen Delivery Method Room Air 08/26/24 11:30 Temperature 98.1 F 08/26/24 11:30 Pulse Rate 92 H 08/26/24 11:30 Respiratory Rate 18 08/26/24 11:30 Blood Pressure 147/81 H 08/26/24 11:30 Pulse Oximetry 99 08/26/24 11:30 Oxygen Delivery Method Room Air 08/26/24 11:30 Medical Decision Making MDM Narrative Medical decision making narrative: Patient's labs are significant for a creatinine of 4.4. He does have a history of needing dialysis in the past although he is not on dialysis now. His blood sugars also elevated in the 300s. Patient knows that he has been admitted and knows that he is having surgery tomorrow. Blood cultures lactate and antibiotics started in ED. I called and spoke to Dr. Alcala who is comfortable with care plan for admission here and he is aware of BUN/creatinine and GFR. Patient will be seen and managed by Dr. Zambrano as well for the foot. Patient and family comfortable with care plan for admission. Differential Diagnosis Differential Diagnosis: Osteomyelitis, cellulitis, abscess Medical Records Medical records reviewed: Yes I reviewed the patient's medical records Lab Data Lab results reviewed: Yes I reviewed the patient's lab results Labs: Lab Results 08/26/24 08/26/24 Range/Units 11:45 12:26 WBC 12.3 H (4.0-11.0) 10^3/uL RBC 3.65 L (4.70-6.10) 10^6/uL Hgb 10.7 L (14.0-18.0) g/dL Hct 33.1 L (42.0-54.0) % MCV 90.7 (80.0-94.0) fL MCH 29.3 (25.9-34.0) pg MCHC 32.3 (29.9-35.2) g/dL RDW 13.3 (11.0-15.0) % Plt Count 342 (150-450) 10^3/uL MPV 8.5 L (9.5-13.5) fL Neut % (Auto) 66.8 (43.0-75.0) % Lymph % (Auto) 16.1 L (20.5-60.0) % [place] % (Auto) 10.1 (1.7-12.0) % Eos % (Auto) 3.6 (0.9-7.0) % Baso % (Auto) 0.3 (0.2-2.0) % Neut # (Auto) 8.2 H (1.4-6.5) 10^3/uL Lymph # (Auto) 2.0 (1.2-3.8) 10^3/uL [place] # (Auto) 1.2 H (0.3-0.8) 10^3/uL Eos # (Auto) 0.4 (0.0-0.7) 10^3/uL Baso # (Auto) 0.0 (0.0-0.1) 10^3/uL Abs Immat Gran (auto) 0.38 H (0.00-0.03) 10^3/uL Imm/Tot Granulo (auto) 3.1 H (0.0-0.5) % ESR >130 H (<=20) mm/hr PT 11.1 (9.0-11.6) sec INR 1.05 Sodium 135 L (136-145) mmol/L Potassium 5.6 H (3.5-5.1) mmol/L Chloride 99 (98-107) mmol/L Carbon Dioxide 21.3 (21.0-32.0) mmol/L Anion Gap 20.3 BUN 64.0 H (7.0-18.0) mg/dL Creatinine 4.49 H (0.70-1.30) mg/dL Est GFR ( Amer) 16 L (>=60 mL/min/1.73m^2) Est GFR (Non-Af Amer) 13 L (>=60 mL/min/1.73m^2) BUN/Creatinine Ratio 14.3 Glucose 353 H (74-106) mg/dL Lactate 2.4 H* (0.4-2.0) mmol/L Calcium 8.9 (8.5-10.1) mg/dL Total Bilirubin 0.3 (0.2-1.0) mg/dL AST 18 (15-37) U/L ALT 19 (16-63) U/L Alkaline Phosphatase 87 (46-116) U/L C-Reactive Protein 8.00 H (<=0.50) mg/dL Total Protein 7.1 (6.4-8.2) g/dL Albumin 2.1 L (3.4-5.0) g/dL Globulin 5.0 g/dL Albumin/Globulin Ratio 0.4 Discharge Plan Discharge Chief Complaint: Extremity Problem, Nontraumatic Clinical Impression: Infection of toe, DM type 2 (diabetes mellitus, type 2), CKD (chronic kidney disease) Diabetic ulcer of left foot Qualifiers: Diabetic foot ulcer location: midfoot Diabetes mellitus type: type 2 Non-pressure ulcer stage: with muscle involvement without evidence of necrosis Qualified Code(s): E11.621 - Type 2 diabetes mellitus with foot ulcer Patient Disposition: Admitted As Inpatient Time of Disposition Decision: 13:39 Condition: Fair
[2024-08-26 15:23] LABS: Lactate/Lactic Acid 1.1 mmol/L (0.4-2.0)
[2024-08-26 15:34] VITALS: BP 170/87; PULSE 81; TEMP 36.4; O2SAT 96; BMI 31.3
[2024-08-26] MEDS: 0.9 % SODIUM CHLORIDE 1,000 ML 125 ML IV (16:41)
[2024-08-26 17:00] LABS: Glucometer 418 mg/dL (74-106)
[2024-08-26] MEDS: INSULIN ASPART 300 UNIT/3 ML PEN SUBQ ×2 (17:05→21:26)
[2024-08-26] MEDS: VANCOMYCIN HCL 1,000 MG in 0.9 % SODIUM CHLORIDE 250 ML 125 MG IV (17:42)
[2024-08-26 19:38] VITALS: BP 130/81; PULSE 95; TEMP 36.6; O2SAT 97
[2024-08-26] MEDS: FAMOTIDINE 20 MG TABLET PO (21:27)
[2024-08-26] MEDS: MONTELUKAST SODIUM 10 MG TABLET PO (21:27)
[2024-08-26] MEDS: DULOXETINE HCL 60 MG CAPSULE.DR PO (21:27)
[2024-08-26] MEDS: SODIUM BICARBONATE 325 MG TABLET PO (21:27)
[2024-08-26 21:32] LABS: Glucometer 156 mg/dL (74-106)
[2024-08-26] MEDS: ACETAMINOPHEN 500 MG TABLET 1000 MG PO (23:53)
[2024-08-27] VITALS (11 sets, daily range): BP systolic 158–190; BP diastolic 63–94; PULSE 84–96; TEMP 36.5–37; O2SAT 93–96
[2024-08-27] MEDS: PIPERACILLIN SODIUM/TAZOBACTAM 3.375 GM in 0.9 % SODIUM CHLORIDE 50 ML IV ×2 (00:11→12:05)
[2024-08-27] MEDS: 0.9 % SODIUM CHLORIDE 1,000 ML 125 ML IV ×3 (02:18→18:40)
[2024-08-27 05:40] LABS: Basophils Percent Auto 0.3 % (0.2-2.0); Eosinophils Absolute Auto 0.4 10^3/uL (0.0-0.7); Eosinophils Percent Auto 3.9 % (0.9-7.0); Hematocrit 29.4 % (42.0-54.0); Hemoglobin 9.6 g/dL (14.0-18.0); Immature Granulocytes Abs Auto 0.21 10^3/uL (0.00-0.03); Immature Granulocytes Pct Auto 1.9 % (0.0-0.5); Lymphocytes Absolute Auto 1.2 10^3/uL (1.2-3.8); Lymphocytes Percent Auto 10.9 % (20.5-60.0); Mean Corpuscular HGB Conc 32.7 g/dL (29.9-35.2); Mean Corpuscular Hemoglobin 29.5 pg (25.9-34.0); Mean Corpuscular Volume 90.5 fL (80.0-94.0); Mean Platelet Volume 8.5 fL (9.5-13.5); Monocytes Absolute Auto 1.1 10^3/uL (0.3-0.8); Monocytes Percent Auto 9.8 % (1.7-12.0); Neutrophils Absolute Auto 7.9 10^3/uL (1.4-6.5); Neutrophils Percent Auto 73.2 % (43.0-75.0); Platelet Count 268 10^3/uL (150-450); Red Blood Count 3.25 10^6/uL (4.70-6.10); Red Cell Distribution Width 13.2 % (11.0-15.0); White Blood Count 10.8 10^3/uL (4.0-11.0)
[2024-08-27 05:51] LABS: Anion Gap 15.1; BUN Creatinine Ratio 14.6; Calcium 8.6 mg/dL (8.5-10.1); Carbon Dioxide 19.5 mmol/L (21.0-32.0); Chloride 106 mmol/L (98-107); Estimated GFR (African America 18 (>=60 mL/min/1.73m^2); Estimated GFR (Non-African Ame 15 (>=60 mL/min/1.73m^2); Glucose 135 mg/dL (74-106); Potassium 4.6 mmol/L (3.5-5.1); Sodium 136 mmol/L (136-145)
[2024-08-27 07:29] LABS: Glucometer 138 mg/dL (74-106)
--- NOTE | 2024-08-27 08:03 | PM.CN ---
Consult Note: [facility] Data of Consult Consult date: 08/27/24 Requesting Physician: Ajay Vizcaino MD Primary Care Provider: GABRIEL JUAREZ DO Consult Narrative Reason for consult: Right diabetic foot infection Narrative: Patient is a 64-year-old poorly controlled diabetic male well-known to our wound center and has had history of multiple left foot surgeries for nonhealing ulcerations which included left transmetatarsal amputation. Patient also had right diabetic foot infection and ulceration which ultimately resulted in partial fifth ray amputation. Yesterday he presented to the wound center and was evaluated by Radha Duarte PA-c who took cultures and sent him to the emergency department for further workup. Patient was ultimately admitted yesterday. At bedside with his , Mr. Lyman related to noticing bleeding on his sock on Saturday and over the course of 48 hours the right great toe became extremely swollen, red, hot and malodorous. Patient relates to feeling fine other than periodic chills. He denies nausea, vomiting, fever, malaise and anorexia. He also denies pain in his feet, chest pain, calf pain and shortness of breath. In addition to his right great toe issue patient has been undergoing local wound care for nonhealing plantar left foot ulcer which he denies local signs of infection but has not seen much progress in healing of this ulceration in over the last 6 months Upon admission, patient's inflammatory markers were extremely elevated, prerenal azotemia and leukocytosis of 12,300. Creatinine was 4.49 and is 4.05 today. BUN was 64 and is 59 today. He has been afebrile but upon admission patient was tachycardic and tachypneic. He is hypertensive as well. Last hemoglobin A1c in November 2023 was 11.4. Arterial studies performed in April 2023 reveal elevated ABIs secondary to arterial calcification. Right TBI was within normal limits. cc:: CC: Ajay Vizcaino MD Review of Systems ROS Status of ROS 10 or more systems reviewed and unremarkable except as noted in history and below Constitutional Reports: chills PFSH PFS Medical History (Updated 08/27/24 @ 08:47 by Imer Zambrano DPM) CKD (chronic kidney disease) ?N18.9 - Chronic kidney disease, unspecified (ICD-10) Chronic wound ?T14.8XXA - Other injury of unspecified body region, initial encounter (ICD-10) Immunocompromised ?D84.9 - Immunodeficiency, unspecified (ICD-10) Psoriasis ?L40.9 - Psoriasis, unspecified (ICD-10) Sepsis ?A41.9 - Sepsis, unspecified organism (ICD-10) Arteriovenous fistula of right upper extremity ?I77.0 - Arteriovenous fistula, acquired (ICD-10) Chronic kidney disease ?N18.9 - Chronic kidney disease, unspecified (ICD-10) Hyperlipidemia ?E78.5 - Hyperlipidemia, unspecified (ICD-10) Diabetes ?E11.9 - Type 2 diabetes mellitus without complications (ICD-10) Cellulitis of left leg ?L03.116 - Cellulitis of left lower limb (ICD-10) Surgical History History of transmetatarsal amputation of foot ?Z89.439 - Acquired absence of unspecified foot (ICD-10) History of appendectomy ?Z90.49 - Acquired absence of other specified parts of digestive tract (ICD-10) History of cholecystectomy ?Z90.49 - Acquired absence of other specified parts of digestive tract (ICD-10) Amputation of left great toe ?S98.112A - Complete traumatic amputation of left great toe, initial encounter (ICD-10) Family History Mother Family history of CHF (congestive heart failure) Family history of diabetes mellitus Family history of hypertension Grandfather Family history of stroke Social History Within the past year, how often did you have a drink containing alcohol: never Within the past year, how many standard drinks containing alcohol did you have on a typical day: 1 or 2 Within the past year, how often did you have six or more drinks on one occasion: never Total score: 0 Score interpretation: A score less than 4 is consistent with normal alcohol consumption. Smoking status: Current some day smoker Non-prescribed substance use: denies use Previous occupational history: disabled Highest level of school completed/degree received: 11th grade Are you now , , , , never or living with a partner: In a typical week, how many times do you talk on the telephone with family, friends, or neighbors: 3 or more times per week How often do you get together with friends or relatives: 3 or more times per week How often do you attend sabianist or oriental orthodox services: never Do you belong to any clubs or organizations such as sabianist groups unions, fraternal or athletic groups, or school groups: no Total score: 2 Score interpretation: A score of greater than or equal to 2 indicates the lowest level of social isolation. Little interest or pleasure in doing things: not at all Feeling down, depressed, or hopeless: not at all Feel stressed/tense/nervous/anxious/difficulty sleeping: not at all Do you think of yourself as: straight/heterosexual Gender Identity: male Meds Home Medications and Allergies Home Medications ?Medication ?Instructions ?Recorded ?Confirmed ?Type montelukast 10 mg tablet 10 mg PO .QHS 01/28/23 08/26/24 History rosuvastatin 20 mg tablet 20 mg PO .QHS 01/28/23 08/26/24 History vitamin B complex and vitamin C 1 cap PO QDAY 01/28/23 08/26/24 History no.20-folic acid 1 mg capsule (Renal Caps) bupropion HCl 300 mg 24 hr tablet, 300 mg PO QDAY 12/24/23 08/26/24 History extended release finerenone 20 mg tablet (Kerendia) 20 mg PO QDAY 12/24/23 08/26/24 History multivitamin with minerals-folic 1 tab PO QDAY 12/24/23 08/26/24 History acid 400 mcg-lycopene 370 mcg tablet (One-A-Day Men's 50 Plus) sodium bicarbonate 325 mg tablet 325 mg PO TID 12/25/23 08/26/24 History insulin aspart U-100 100 unit/mL 3 - 15 unit (0.03 - 0.15 mL) 12/26/23 08/26/24 Rx (3 mL) subcutaneous pen (Novolog subcut ACHS #15 mL FlexPen U-100 Insulin aspart) insulin detemir U-100 100 unit/mL 30 unit (0.3 mL) subcut QHS 30 12/26/23 08/26/24 Rx (3 mL) subcutaneous pen (Levemir days #9 mL FlexPen) duloxetine 60 mg capsule,delayed 60 mg PO .QHS 08/26/24 08/26/24 History release empagliflozin 25 mg tablet 25 mg PO DAILY 08/26/24 08/26/24 History (Jardiance) famotidine 20 mg tablet 20 mg PO .QHS 08/26/24 08/26/24 History torsemide 20 mg tablet 40 mg PO QAM 08/26/24 History Allergies Allergy/AdvReac Type Severity Reaction Status Date / Time No Known Drug Allergies Allergy Verified 12/24/23 15:49 Exam Narrative Exam Narrative: Skin: Right great toe demonstrates a deep penetrating ulceration at the distal tip which probes to bone and demonstrates fibrotic tissue with scant necrosis. No active purulence is noted. This ulceration extends plantarly but partial-thickness to the plantar medial aspect of the great toe. The toe is swollen and erythematous just proximal to the interphalangeal joint. Left plantar foot ulceration is full-thickness with fat, fascial and muscle tissue involvement without evidence of necrotic tissue. Wound base is mixed with fibrotic and granular tissue. Periwound hyperkeratosis is also noted however there are no signs of infection. Negative probe to bone Vascular: Posterior tibial pulse is faintly palpable bilaterally while dorsalis pedis pulse is nonpalpable. Absent digital hair. No calf pain on squeeze. Swelling limited to the right great toe Neurologic: Absent protective and vibratory sensation MSK: No pain on palpation to bilateral feet/ankle/leg. Patient is able to wiggle toes 1 through 4 on the right foot. Prior amputation of right fifth ray and left forefoot. Ankle joint dorsiflexion is to neutral but not past bilaterally Constitutional Vital Signs, click to edit/add: Last Vital Signs Temp 97.7 F 08/27/24 07:38 Pulse 84 08/27/24 07:38 Resp 14 08/27/24 07:38 BP 160/79 H 08/27/24 07:38 Pulse Ox 96 08/27/24 07:38 O2 Del Method Room Air 08/27/24 07:38 Results Labs Labs: Short CBC 08/26/24 08/27/24 Range/Units 11:45 05:28 WBC 12.3 H 10.8 (4.0-11.0) 10^3/uL Hgb 10.7 L 9.6 L (14.0-18.0) g/dL Hct 33.1 L 29.4 L (42.0-54.0) % Plt Count 342 268 (150-450) 10^3/uL BMP 08/26/24 08/27/24 11:45 05:28 Sodium 135 L 136 Potassium 5.6 H 4.6 Chloride 99 106 Carbon Dioxide 21.3 19.5 L BUN 64.0 H 59.0 H Creatinine 4.49 H 4.05 H Glucose 353 H 135 H Calcium 8.9 8.6 Liver Function 08/26/24 Range/Units 11:45 Total Bilirubin 0.3 (0.2-1.0) mg/dL AST 18 (15-37) U/L ALT 19 (16-63) U/L Alkaline Phosphatase 87 (46-116) U/L Albumin 2.1 L (3.4-5.0) g/dL Assessment and Plan Assessment and Plan (1) Acute osteomyelitis of right foot: (2) Ulcer of right foot with necrosis of bone: (3) Ulcer of left foot with fat layer exposed: (4) Type 2 diabetes mellitus with foot ulcer: (5) Type 2 diabetes mellitus with diabetic 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: (6) Equinus contracture of left ankle: Plan Patient seen and evaluated at bedside in the presence of his . Patient education was provided and all questions answered to satisfaction. Patient has a severe diabetic right foot infection which is potentially limb-threatening. Clinical examination and laboratories suggest acute osteomyelitis and x-rays reveal suspected periosteal reaction on lateral projection at the plantar aspect of the distal tuft of the distal phalanx which is not evident on x-rays in November 2020. There is also old fracture involving the hallux IPJ which is seemingly unchanged. Due to the severity of his right foot I recommended partial versus total amputation of the right great toe. Regarding his left foot ulcer, which is deep and fibrotic but no evidence of infection. I believe the patient would benefit from surgical debridement in order to minimize bacterial colonization and enhance healing given this ulceration is also limb threatening. Patient understands the severity of his issue and agrees with this plan. I further discussed importance of glucose control and monitoring his feet closely. I explained his renal function is poor and we are limited to how much antibiotics we can administer systemically. Patient is to be n.p.o. after midnight. Nursing to apply dry sterile dressing to bilateral feet and reinforce as needed. Dr. Vizcaino (hospitalist) is aware of plan for surgery tomorrow morning. Will follow; call with updates
[2024-08-27 09:27] LABS: Estimated Average Glucose 283 mg/dL; Glycohemoglobin A1C 11.5 % (4.5-6.2)
[2024-08-27] MEDS: MULTIVITAMIN TABLET 1 TAB PO (09:32)
[2024-08-27] MEDS: BUPROPION HCL 150 MG XL TABLET 24H 300 MG PO (09:32)
[2024-08-27] MEDS: FOLIC ACID/VIT B6/VIT B12 TABLET 1 TAB PO (09:44)
--- NOTE | 2024-08-27 10:51 | ECG_ITS ---
[facility] Test Date: 2024-08-27 Pat Name: RASHARD TAN Department: Room: 2291 Gender: Male Hearing Health Technician: : 1960 Requested By: FARZAD ARCHER Order Number: [id number] Reading MD: DOMINIC CHAVES M.D. Measurements Intervals [place] Rate: 84 P: 73 WV: 220 QRS: 65 QRSD: 109 T: 75 QT: 382 QTc: 452 Interpretive Statements SINUS RHYTHM WITH FIRST DEGREE AV BLOCK NONSPECIFIC T-WAVE ABNORMALITY Compared to ECG 12/24/2023 17:36:57 First degree AV block now present T-wave abnormality now present Electronically Signed On 08-27-2024 23:25:47 EDT by DOMINIC CHAVES M.D.
[2024-08-27 11:23] LABS: Glucometer 133 mg/dL (74-106)
--- NOTE | 2024-08-27 11:23 | PM.HP ---
HPI H&P: HPI History of Present Illness Chief complaint: RIGHT GREAT TOE INFECTION Narrative: 64 y/o male sent to ER from podiatry for foot ulcers. History of uncontrolled DM and neuropathy with chronic wounds and partial amputations. Developed increased redness and drainage from both feet. Right great toe infected with malodorous drainage. Seen by podiatry and sent to ER for admission. In ER WBC elevated and CRP 8.0. Renal function abnormal and history of CKD 4. On dialysis years ago and fistula remains in place. Admitted and started zosyn and vanco. WBC improved. Feels well and minimal pain. Opioid HPI Opioid Management Most Recent Pain and Opioid Data: Last Pain Scale 7 Today, 00:00 Last Pain Assessment 08/26/24, 16:00 Last MAR Pain Assessment 08/26/24, 23:53 Last ORT Total Score 0 08/26/24, 15:34 Last ORT Risk Category Low Risk 08/26/24, 15:34 Review of Systems ROS Constitutional Denies: fever, chills or fatigue Cardiovascular Denies: chest pain, palpitations or edema Respiratory Denies: shortness of breath, cough or wheezing Gastrointestinal Denies: abdominal pain, nausea, vomiting or diarrhea Genitourinary Denies: painful urination PFSH [facility] Medical History (Updated 08/27/24 @ 11:30 by Ajay Vizcaino MD) Cellulitis of left leg ?L03.116 - Cellulitis of left lower limb (ICD-10) Infection of toe ?L08.9 - Local infection of the skin and subcutaneous tissue, unspecified (ICD-10) Hyperglycemia ?R73.9 - Hyperglycemia, unspecified (ICD-10) Diabetic ulcer of left foot ?E11.621 - Type 2 diabetes mellitus with foot ulcer (ICD-10) ?L97.529 - Non-pressure chronic ulcer of other part of left foot with unspecified severity (ICD-10) DM type 2 (diabetes mellitus, type 2) ?E11.9 - Type 2 diabetes mellitus without complications (ICD-10) CKD (chronic kidney disease) ?N18.9 - Chronic kidney disease, unspecified (ICD-10) CKD (chronic kidney disease) ?N18.9 - Chronic kidney disease, unspecified (ICD-10) Chronic wound ?T14.8XXA - Other injury of unspecified body region, initial encounter (ICD-10) Immunocompromised ?D84.9 - Immunodeficiency, unspecified (ICD-10) Psoriasis ?L40.9 - Psoriasis, unspecified (ICD-10) Sepsis ?A41.9 - Sepsis, unspecified organism (ICD-10) Arteriovenous fistula of right upper extremity ?I77.0 - Arteriovenous fistula, acquired (ICD-10) Chronic kidney disease ?N18.9 - Chronic kidney disease, unspecified (ICD-10) Hyperlipidemia ?E78.5 - Hyperlipidemia, unspecified (ICD-10) Diabetes ?E11.9 - Type 2 diabetes mellitus without complications (ICD-10) Cellulitis of left leg ?L03.116 - Cellulitis of left lower limb (ICD-10) Surgical History History of transmetatarsal amputation of foot ?Z89.439 - Acquired absence of unspecified foot (ICD-10) History of appendectomy ?Z90.49 - Acquired absence of other specified parts of digestive tract (ICD-10) History of cholecystectomy ?Z90.49 - Acquired absence of other specified parts of digestive tract (ICD-10) Amputation of left great toe ?S98.112A - Complete traumatic amputation of left great toe, initial encounter (ICD-10) Family History Mother Family history of CHF (congestive heart failure) Family history of diabetes mellitus Family history of hypertension Grandfather Family history of stroke Social History Within the past year, how often did you have a drink containing alcohol: never Within the past year, how many standard drinks containing alcohol did you have on a typical day: 1 or 2 Within the past year, how often did you have six or more drinks on one occasion: never Total score: 0 Score interpretation: A score less than 4 is consistent with normal alcohol consumption. Smoking status: Current some day smoker Non-prescribed substance use: denies use Previous occupational history: disabled Highest level of school completed/degree received: 11th grade Are you now , , , , never or living with a partner: In a typical week, how many times do you talk on the telephone with family, friends, or neighbors: 3 or more times per week How often do you get together with friends or relatives: 3 or more times per week How often do you attend religious or nondenominational services: never Do you belong to any clubs or organizations such as religious groups unions, fraternal or athletic groups, or school groups: no Total score: 2 Score interpretation: A score of greater than or equal to 2 indicates the lowest level of social isolation. Little interest or pleasure in doing things: not at all Feeling down, depressed, or hopeless: not at all Feel stressed/tense/nervous/anxious/difficulty sleeping: not at all Do you think of yourself as: straight/heterosexual Gender Identity: male Meds Home Medications and Allergies Home Medications ?Medication ?Instructions ?Recorded ?Confirmed ?Type montelukast 10 mg tablet 10 mg PO .QHS 01/28/23 08/26/24 History rosuvastatin 20 mg tablet 20 mg PO .QHS 01/28/23 08/26/24 History vitamin B complex and vitamin C 1 cap PO QDAY 01/28/23 08/26/24 History no.20-folic acid 1 mg capsule (Renal Caps) bupropion HCl 300 mg 24 hr tablet, 300 mg PO QDAY 12/24/23 08/26/24 History extended release finerenone 20 mg tablet (Kerendia) 20 mg PO QDAY 12/24/23 08/26/24 History multivitamin with minerals-folic 1 tab PO QDAY 12/24/23 08/26/24 History acid 400 mcg-lycopene 370 mcg tablet (One-A-Day Men's 50 Plus) sodium bicarbonate 325 mg tablet 325 mg PO TID 12/25/23 08/26/24 History insulin aspart U-100 100 unit/mL 3 - 15 unit (0.03 - 0.15 mL) 12/26/23 08/26/24 Rx (3 mL) subcutaneous pen (Novolog subcut ACHS #15 mL FlexPen U-100 Insulin aspart) insulin detemir U-100 100 unit/mL 30 unit (0.3 mL) subcut QHS 30 12/26/23 08/26/24 Rx (3 mL) subcutaneous pen (Levemir days #9 mL FlexPen) duloxetine 60 mg capsule,delayed 60 mg PO .QHS 08/26/24 08/26/24 History release empagliflozin 25 mg tablet 25 mg PO DAILY 08/26/24 08/26/24 History (Jardiance) famotidine 20 mg tablet 20 mg PO .QHS 08/26/24 08/26/24 History torsemide 20 mg tablet 40 mg PO QAM 08/26/24 History Allergies Allergy/AdvReac Type Severity Reaction Status Date / Time No Known Drug Allergies Allergy Verified 12/24/23 15:49 Exam Constitutional Vital Signs, click to edit/add: Last Vital Signs Temp 97.7 F 08/27/24 07:38 Pulse 84 08/27/24 07:38 Resp 14 08/27/24 07:38 BP 160/79 H 08/27/24 07:38 Pulse Ox 96 08/27/24 07:38 O2 Del Method Room Air 08/27/24 07:38 Documenting provider has reviewed patient's vital signs: yes Common normals: no apparent distress, oriented x3 and alert HENMT Common normals: normocephalic Eye Common normals: PERRL and EOMs intact bilaterally Respiratory Common normals: normal respiratory effort and clear to auscultation bilaterally Cardio Common normals: regular rate, regular rhythm, no gallops, no murmurs and no rub GI Common normals: Normal to inspection, nondistended, normoactive bowel sounds present and non-tender Extremity Common normals: no pedal edema Results Labs Labs: Short CBC 08/26/24 08/27/24 Range/Units 11:45 05:28 WBC 12.3 H 10.8 (4.0-11.0) 10^3/uL Hgb 10.7 L 9.6 L (14.0-18.0) g/dL Hct 33.1 L 29.4 L (42.0-54.0) % Plt Count 342 268 (150-450) 10^3/uL BMP 08/26/24 08/27/24 11:45 05:28 Sodium 135 L 136 Potassium 5.6 H 4.6 Chloride 99 106 Carbon Dioxide 21.3 19.5 L BUN 64.0 H 59.0 H Creatinine 4.49 H 4.05 H Glucose 353 H 135 H Calcium 8.9 8.6 Liver Function 08/26/24 Range/Units 11:45 Total Bilirubin 0.3 (0.2-1.0) mg/dL AST 18 (15-37) U/L ALT 19 (16-63) U/L Alkaline Phosphatase 87 (46-116) U/L Albumin 2.1 L (3.4-5.0) g/dL Assessment and Plan Assessment and Plan (1) Acute osteomyelitis of right foot: (2) Type 2 diabetes mellitus with foot ulcer: (3) Ulcer of right foot with necrosis of bone: (4) Ulcer of left foot with fat layer exposed: (5) Type 2 diabetes mellitus with diabetic 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: (6) Type 2 diabetes mellitus with hyperglycemia: (7) CKD (chronic kidney disease) stage 4, GFR 15-29 ml/min: (8) Anemia in CKD (chronic kidney disease): (9) Equinus contracture of left ankle: Plan Presented with diabetic foot ulcers and podiatry consulted. Plan on OR in am for bilateral debridements. Continue zosyn and vanco. Renal function slightly improved and at baseline CKD. Hgb stable and has anemia of CKD. Able to proceed with surger at low to intermediate risk for complications. Resumed home medication. A1C 11.5 and will monitor BS closely.
--- NOTE | 2024-08-27 11:28 | PC.NURSE ---
1000 Doctor Zambrano in, removed dressings and examined wounds to bilateral feet. orders received. Bilateral lower extremities cleansed and lotion applied. Wound appropriately 3 centimeters on L foot, cleansed with betadine and covered with 4x4 and kerlix. Wound on R great toe covered with xerofoam and 4x4 and wrapped with kerlix.
--- NOTE | 2024-08-27 11:32 | CM.NOTE ---
Rounds made with Dr. Vizcaino. Dr. Vizcaino reviews plan of care with Vaishali Lyman. No discharge today.
--- NOTE | 2024-08-27 11:54 | PC.NURSE ---
0800 AV fistula R forearm thrill noted, auscultated bruit.
--- NOTE | 2024-08-27 13:22 | SWNOTE1 ---
Plan is for OR tomorrow with Dr. Zambrano.
[2024-08-27] MEDS: SODIUM BICARBONATE 325 MG TABLET PO ×2 (14:02→21:25)
--- NOTE | 2024-08-27 14:04 | SWNOTE1 ---
SW met with pt to discuss dc needs. Pt lives at home with his . Pt is independent and does not use any DME at home. Pt did have [facility] in past, but not at this time. SW informed patient that he may need them for wound care or IV anbx if needed after surgery. At this time pt voiced no needs. SW to follow as needed.
[2024-08-27 16:03] LABS: Basophils Percent Auto 0.2 % (0.2-2.0); Eosinophils Absolute Auto 0.2 10^3/uL (0.0-0.7); Eosinophils Percent Auto 2.5 % (0.9-7.0); Hematocrit 32.4 % (42.0-54.0); Hemoglobin 10.4 g/dL (14.0-18.0); Immature Granulocytes Abs Auto 0.19 10^3/uL (0.00-0.03); Mean Corpuscular HGB Conc 32.1 g/dL (29.9-35.2); Mean Corpuscular Volume 90.3 fL (80.0-94.0); Neutrophils Absolute Auto 7.1 10^3/uL (1.4-6.5); Neutrophils Percent Auto 75.3 % (43.0-75.0); Platelet Count 272 10^3/uL (150-450); Red Blood Count 3.59 10^6/uL (4.70-6.10); Red Cell Distribution Width 13.2 % (11.0-15.0); White Blood Count 9.5 10^3/uL (4.0-11.0)
--- NOTE | 2024-08-27 16:18 | PC.NURSE ---
Dr. Vizcaino added IV blood pressure medication to help with elevated blood pressure
[2024-08-27] MEDS: HYDRALAZINE HCL 20 MG/ML VIAL 10 MG IVP (16:42)
[2024-08-27 16:48] LABS: Glucometer 100 mg/dL (74-106)
--- NOTE | 2024-08-27 19:14 | PC.NURSE ---
held ovenox due to surgical procedure tomorrow
[2024-08-27] MEDS: FAMOTIDINE 20 MG TABLET PO (21:25)
[2024-08-27] MEDS: DULOXETINE HCL 60 MG CAPSULE.DR PO (21:25)
[2024-08-27] MEDS: MONTELUKAST SODIUM 10 MG TABLET PO (21:25)
[2024-08-27] MEDS: INSULIN GLARGINE 300 UNIT/3 ML INSULN.PEN 30 UNIT SQ (21:30)
[2024-08-27] MEDS: INSULIN ASPART 300 UNIT/3 ML PEN SUBQ (21:31)
[2024-08-27 21:35] LABS: Glucometer 234 mg/dL (74-106)
[2024-08-28] VITALS (15 sets, daily range): BP systolic 117–178; BP diastolic 53–91; PULSE 69–88; TEMP 36.1–36.9; O2SAT 92–100
[2024-08-28] MEDS: PIPERACILLIN SODIUM/TAZOBACTAM 3.375 GM in 0.9 % SODIUM CHLORIDE 50 ML IV ×2 (01:26→12:41)
[2024-08-28] MEDS: 0.9 % SODIUM CHLORIDE 1,000 ML 125 ML IV ×2 (01:27→15:42)
[2024-08-28 05:06] LABS: Basophils Percent Auto 0.3 % (0.2-2.0); Eosinophils Absolute Auto 0.3 10^3/uL (0.0-0.7); Eosinophils Percent Auto 3.2 % (0.9-7.0); Hematocrit 31.1 % (42.0-54.0); Hemoglobin 10.2 g/dL (14.0-18.0); Immature Granulocytes Pct Auto 2.1 % (0.0-0.5); Lymphocytes Absolute Auto 1.4 10^3/uL (1.2-3.8); Lymphocytes Percent Auto 14.4 % (20.5-60.0); Mean Corpuscular HGB Conc 32.8 g/dL (29.9-35.2); Mean Corpuscular Hemoglobin 29.7 pg (25.9-34.0); Mean Corpuscular Volume 90.4 fL (80.0-94.0); Mean Platelet Volume 8.2 fL (9.5-13.5); Monocytes Absolute Auto 1.2 10^3/uL (0.3-0.8); Monocytes Percent Auto 12.3 % (1.7-12.0); Neutrophils Absolute Auto 6.5 10^3/uL (1.4-6.5); Neutrophils Percent Auto 67.7 % (43.0-75.0); Platelet Count 280 10^3/uL (150-450); Red Blood Count 3.44 10^6/uL (4.70-6.10); Red Cell Distribution Width 13.4 % (11.0-15.0); White Blood Count 9.6 10^3/uL (4.0-11.0)
[2024-08-28 05:24] LABS: BUN Creatinine Ratio 14.6; Calcium 8.6 mg/dL (8.5-10.1); Carbon Dioxide 19.2 mmol/L (21.0-32.0); Chloride 106 mmol/L (98-107); Estimated GFR (African America 22 (>=60 mL/min/1.73m^2); Estimated GFR (Non-African Ame 18 (>=60 mL/min/1.73m^2); Glucose 85 mg/dL (74-106); Potassium 4.2 mmol/L (3.5-5.1); Sodium 138 mmol/L (136-145)
[2024-08-28] MEDS: LACTATED RINGER'S SOLUTION 1,000 ML 50 ML IV (08:17)
--- NOTE | 2024-08-28 08:34 | PC.NURSE ---
patient transferred to PACU
--- NOTE | 2024-08-28 09:45 | P.ORON_ITS ---
Brief Operative Note Date of procedure: 08/28/24 Pre-op diagnosis general: Right hallux ulceration with bone necrosis, acute os teomyelitis, left foot diabetic ulceration, diabetic neuropathy Post-op diagnosis: same as pre-op Procedure: Procedure performed: Right partial hallux amputation and left foot ulcer debridement down to and including fat, fascia and muscle Indication for procedure: Please see consultation note for details but in short patient was admitted on 09/25/2024 for diabetic foot infection consistent with acute osteomyelitis of his right great toe. Patient also has nonhealing left plantar foot ulceration. WBC is trending down and patient has remained hemodynamically stable. Blood cultures and cultures of right great toe are pending. Patient currently receiving broad-spectrum antibiotics. Intraoperative findings: Right great toe ulceration measured 3.9 x 2.2 cm with necrotic and fibrotic soft tissue and bone noted of the right great toe with exposure of the distal phalanx. No purulence was noted however bone of the distal phalanx was soft and discolored. Bone of the proximal phalanx appeared to be healthy and within normal limits. Left plantar foot ulceration with fat, fascial and muscle involvement. Preoperative wound measured 2.5 x 2.0 x 0.2 cm. There is no bone exposure. No evidence of acute infection on the left foot. Procedure in detail: Patient was identified in preoperative holding by myself which time correct side and site were marked and consent was obtained. No additional preoperative antibiotics were given because patient is receiving broad-spectrum antibiotics on the floor. Patient is brought back to the operating theater placed on table supine position. Right ankle tourniquet was placed however was not inflated during the procedure. Bilateral feet were prepped and draped in usual sterile fashion and IV sedation was administered. Formal timeout was performed. Local anesthesia was administered using 10 cc of 1% lidocaine plain. With attention to the right great toe a #15 scalpel was used to excisionally debride all fibrotic, necrotic and questionable soft tissue down to and including bone of the distal phalanx of the great toe. The distal phalanx was disarticulated at the IPJ and passed the back table for specimen. Tendons to the great toe were also sharply excised. Then to allow for closure a portion of the proximal phalanx was removed with the aid of a surgical saw. Bone of the proximal phalanx appeared healthy and of normal quality. Surgical site was irrigated with 3 L of normal saline and a clean rongeur was used to obtain a proximal specimen from the proximal phalanx which was sent as culture. Then the wound was closed in a single layer using skin suture. Then with attention to the left plantar foot ulceration a #15 scalpel was used to excisionally debride excising all nonviable soft tissue to 100% healthy granular base. Debridement was performed down to and including fat, fascia and muscle. No acute signs of infection were noted and no bone was exposed. Pe riwound hyperkeratosis was also removed. Post-debridement ulcer measured 3.8 x 3.5 x 0.4 cm. 100% healthy granular bed was noted postoperatively. Hemostasis was controlled on the field with temporary pressure and elevation. A dry sterile dressing consisting of Mepitel, 4 x 4 gauze, Kerlix and Aguilar wrap were applied to bilateral feet. Postoperative plan: Transfer to medical surgical unit for continued medical management Patient may partial weight-bear with a walker with cam boot on left and surgical shoe on the right Hopeful discharge tomorrow on oral antibiotics Follow-up in wound center for dressing change next week Will follow Implants: None Anesthesia: LATASHA Surgeon: Imer Zambrano [employer] Program Director: Aneta Powell Estimated blood loss (mL): 25 Tourniquet time (min): 0 Pathology: other (Distal and portion of proximal phalanx of right great toe sent to pathology; clean proximal culture of the proximal phalanx sent to microbiology) Condition: stable Disposition: PACU
--- NOTE | 2024-08-28 10:17 | CM.NOTE ---
Rounds made wtih Dr. Vizcaino, pt in OR at this time. Dr. Vizcaino will come back to evaluate pt after OR procedure.
[2024-08-28] MEDS: LIDOCAINE HCL 1% 100 MG/10 ML MDV INJ (10:21)
--- NOTE | 2024-08-28 10:52 | XR_ITS ---
The [address] [address] Patient Name: RASHARD TAN MRN: [id number] date: 1960 Sex: M Assigned Patient Location: MS Current Patient Location: [place] Accession/Order Number: [id number] Exam Date: 08/28/2024 11:46 Report Date: 08/28/2024 11:47 At the request of: CHINO ELLIOTT DPJuma Procedure: XR foot RT min 3V RIGHT FOOT - 3 views CLINICAL HISTORY: Postop right foot great toe removal. COMPARISON: Right foot 08/26/2024 FINDINGS: Postoperative changes are noted with amputation involving the distal aspect of the first digit. Previous amputation involving the distal aspect of the fifth digit. Soft tissue swelling is present. No soft tissue gas. No acute bony process. Scattered degenerative changes. XR/XR foot RT min 3V IMPRESSION: POSTOPERATIVE CHANGES INVOLVING THE FIRST DIGIT WITHOUT DEFINITIVE ACUTE PROCESS. Impression dictated by: Clayton Cuevas Jr., D.O. 08/28/2024 11:47 AM Dictation Location: [employer] Electronically authenticated by: [id number] Y Date: 08/28/2024 11:47
[2024-08-28 11:19] LABS: Glucometer 84 mg/dL (74-106)
--- NOTE | 2024-08-28 11:19 | PM.PN ---
Progress Note: Subjective Subjective Interval history: Patient seen in PACU after surgery. Debridement on left and partial amputation on right. Patient sedated during exam but feels well. Plan on partial weight bearing as tolerated. No chest pain or palpitations. No SOB or cough. Renal function stable. Exam Constitutional Vital Signs, click to edit/add: Last Vital Signs Temp 98.3 F 08/28/24 07:39 Pulse 83 08/28/24 07:39 Resp 18 08/28/24 07:39 BP 159/77 H 08/28/24 07:39 Pulse Ox 97 08/28/24 07:39 O2 Del Method Room Air 08/28/24 07:39 Documenting provider has reviewed patient's vital signs: yes Common normals: no apparent distress, oriented x3 and alert HENMT Common normals: normocephalic Eye Common normals: PERRL and EOMs intact bilaterally Respiratory Common normals: normal respiratory effort and clear to auscultation bilaterally Cardio Common normals: regular rate, regular rhythm, no gallops, no murmurs and no rub GI Common normals: Normal to inspection, nondistended, normoactive bowel sounds present and non-tender Extremity Common normals: no pedal edema Progress Note: Objective Labs Labs: Short CBC 08/27/24 08/28/24 Range/Units 15:56 04:49 WBC 9.5 9.6 (4.0-11.0) 10^3/uL Hgb 10.4 L 10.2 L (14.0-18.0) g/dL Hct 32.4 L 31.1 L (42.0-54.0) % Plt Count 272 280 (150-450) 10^3/uL BMP 08/28/24 04:49 Sodium 138 Potassium 4.2 Chloride 106 Carbon Dioxide 19.2 L BUN 50.0 H Creatinine 3.42 H Glucose 85 Calcium 8.6 Progress Note: A&P Assessment and Plan (1) Acute osteomyelitis of right foot: (2) Type 2 diabetes mellitus with foot ulcer: (3) Ulcer of right foot with necrosis of bone: (4) Ulcer of left foot with fat layer exposed: (5) Type 2 diabetes mellitus with diabetic 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: (6) Type 2 diabetes mellitus with hyperglycemia: (7) CKD (chronic kidney disease) stage 4, GFR 15-29 ml/min: (8) Anemia in CKD (chronic kidney disease): (9) Equinus contracture of left ankle: Plan Taken to OR and postop plan per podiatry. Continue antibiotics. Renal function stable. Likely home with oral antibiotics in am.
[2024-08-28] MEDS: VANCOMYCIN HCL 1,000 MG VIAL 1000 MG TOPICAL (11:21)
[2024-08-28] MEDS: BUPROPION HCL 150 MG XL TABLET 24H 300 MG PO (12:31)
[2024-08-28] MEDS: MULTIVITAMIN TABLET 1 TAB PO (12:32)
[2024-08-28] MEDS: EMPAGLIFLOZIN 25 MG 25 EACH PO (12:32)
[2024-08-28] MEDS: FOLIC ACID/VIT B6/VIT B12 TABLET 1 TAB PO (12:32)
[2024-08-28] MEDS: FINERENONE 20 MG 20 EACH PO (12:32)
--- NOTE | 2024-08-28 14:36 | SWNOTE1 ---
SW had message from doctor earlier today and pt's PCP had messaged with concerns about pt's non compliance and recommended pt go to rehab at [facility]. SW to speak with pt. SW stopped in and spoke with pt about discharge plans. Pt voiced he has a CAM boot and other shoe for him to walk with on the other foot. He will not have dressing changes until he follows up with Dr. Zambrano in the office. SW let pt know that his PCP is worried about him and mentioned he would benefit from going to rehab at nursing facility. Pt stated no way. KATERIN then asked if he works with therapy and home health is recommended, would he like that. He stated no. He stated he gets around and walks everywhere at home. At this time pt does not want any services at discharge.
[2024-08-28] MEDS: SODIUM BICARBONATE 325 MG TABLET PO ×2 (15:41→21:18)
[2024-08-28] MEDS: TORSEMIDE 20 MG TABLET 40 MG PO (15:47)
--- NOTE | 2024-08-28 15:53 | PC.NURSE ---
strikethrough bleeding noted on bilateral feet, dressing reinforced with ABD and ines wrap
[2024-08-28] MEDS: VANCOMYCIN HCL 1,750 MG in 0.9 % SODIUM CHLORIDE 500 ML 250 MG IV (17:35)
[2024-08-28] MEDS: ENOXAPARIN SODIUM 30 MG/0.3 ML SYRINGE SUBQ (17:35)
[2024-08-28] MEDS: INSULIN ASPART 300 UNIT/3 ML PEN SUBQ ×2 (17:40→21:19)
[2024-08-28 17:44] LABS: Glucometer 142 mg/dL (74-106)
[2024-08-28 21:14] LABS: Glucometer 232 mg/dL (74-106)
[2024-08-28] MEDS: DULOXETINE HCL 60 MG CAPSULE.DR PO (21:19)
[2024-08-28] MEDS: MONTELUKAST SODIUM 10 MG TABLET PO (21:19)
[2024-08-28] MEDS: FAMOTIDINE 20 MG TABLET PO (21:19)
[2024-08-28] MEDS: INSULIN GLARGINE 300 UNIT/3 ML INSULN.PEN 30 UNIT SQ (21:19)
[2024-08-29 05:55] VITALS: BP 149/73; PULSE 87; TEMP 36.8; O2SAT 96
[2024-08-29 06:13] LABS: Basophils Percent Auto 0.4 % (0.2-2.0); Eosinophils Absolute Auto 0.5 10^3/uL (0.0-0.7); Eosinophils Percent Auto 4.3 % (0.9-7.0); Hematocrit 29.5 % (42.0-54.0); Hemoglobin 9.5 g/dL (14.0-18.0); Immature Granulocytes Abs Auto 0.23 10^3/uL (0.00-0.03); Immature Granulocytes Pct Auto 2.2 % (0.0-0.5); Lymphocytes Absolute Auto 1.8 10^3/uL (1.2-3.8); Lymphocytes Percent Auto 16.6 % (20.5-60.0); Mean Corpuscular HGB Conc 32.2 g/dL (29.9-35.2); Mean Corpuscular Hemoglobin 29.3 pg (25.9-34.0); Mean Platelet Volume 8.2 fL (9.5-13.5); Monocytes Absolute Auto 1.5 10^3/uL (0.3-0.8); Monocytes Percent Auto 14.2 % (1.7-12.0); Neutrophils Absolute Auto 6.6 10^3/uL (1.4-6.5); Neutrophils Percent Auto 62.3 % (43.0-75.0); Platelet Count 256 10^3/uL (150-450); Red Blood Count 3.24 10^6/uL (4.70-6.10); Red Cell Distribution Width 13.4 % (11.0-15.0); White Blood Count 10.5 10^3/uL (4.0-11.0)
[2024-08-29 06:29] LABS: Anion Gap 18.2; Calcium 8.5 mg/dL (8.5-10.1); Chloride 104 mmol/L (98-107); Estimated GFR (African America 21 (>=60 mL/min/1.73m^2); Estimated GFR (Non-African Ame 18 (>=60 mL/min/1.73m^2); Glucose 57 mg/dL (74-106); Potassium 4.2 mmol/L (3.5-5.1); Sodium 137 mmol/L (136-145)
[2024-08-29 06:37] LABS: Glucometer 49 mg/dL (74-106)
[2024-08-29 07:57] LABS: Glucometer 128 mg/dL (74-106)
[2024-08-29 08:00] VITALS: BP 153/76; PULSE 85; TEMP 36.8; O2SAT 96
--- NOTE | 2024-08-29 08:14 | P.DS_ITS ---
DS: Providers Provider Date of admission: 08/26/24 15:23 Primary care physician: GABRIEL JUAREZ DO Consults: 08/28/24 Occupational Therapy Eval and Treat Routine Reason for consultation: foot surgery Physical Therapy Eval and Treat Routine Reason for consultation: surgery DS: Diagnosis Discharge Diagnosis (1) Acute osteomyelitis of right foot: (2) Type 2 diabetes mellitus with foot ulcer: (3) Ulcer of right foot with necrosis of bone: (4) Ulcer of left foot with fat layer exposed: (5) Type 2 diabetes mellitus with diabetic 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: (6) Type 2 diabetes mellitus with hyperglycemia: (7) CKD (chronic kidney disease) stage 4, GFR 15-29 ml/min: (8) Anemia in CKD (chronic kidney disease): (9) Equinus contracture of left ankle: DS: Summary Hospital Course Hospital Course: Reason for admission: See H&P for details. 64 y/o male sent to ER from podiatry for foot ulcers. History of uncontrolled DM and neuropathy with chronic wounds and partial amputations. Developed increased redness and drainage from both feet. Right great toe infected with malodorous drainage. Seen by podiatry and sent to ER for admission. In ER WBC elevated and CRP 8.0. Renal function abnormal and history of CKD 4. On dialysis years ago and fistula remains in place. Hospital course: Admitted and started zosyn and vanco. Started IV fluids to help kidney function. Renal function and WBC improved with IV fluids. Feels well and minimal pain. Podiatry consulted and planned on surgical debridement. Renal function stable in CKD 4 range. To OR 5/2 for debridement of left ulcer and partial amputation of right great toe. Podiatry gave weight bearing ins tructions. Seen by PT and ambulated well. Patient declined home health. Normal WBC and afebrile. Discharged home in stable condition. Will take augmentin renally dosed x 14 days. Follow up with podiatry as scheduled. Follow up with PCP in 1-2 weeks and need to control DM, A1C 11.5 in hospital. Resume home medication as directed. Time Spent with Patient Time attestation: Total time spent providing and/or coordinating discharge services: Time spent: greater than 30 minutes Exam Constitutional Vital Signs, click to edit/add: Last Vital Signs Temp 98.2 F 08/29/24 05:55 Pulse 87 08/29/24 05:55 Resp 18 08/29/24 05:55 BP 149/73 H 08/29/24 05:55 Pulse Ox 96 08/29/24 05:55 O2 Del Method Room Air 08/29/24 05:55 Documenting provider has reviewed patient's vital signs: yes Common normals: no apparent distress, oriented x3 and alert HENMT Common normals: normocephalic Eye Common normals: PERRL and EOMs intact bilaterally Respiratory Common normals: normal respiratory effort and clear to auscultation bilaterally Cardio Common normals: regular rate, regular rhythm, no gallops, no murmurs and no rub GI Common normals: Normal to inspection, nondistended, normoactive bowel sounds present and non-tender Extremity Common normals: no pedal edema DS: Data Data Completed and Pending Labs on day of discharge: Labs from last 24 hours 08/29/24 08/29/24 08/29/24 07:56 06:30 05:58 WBC 10.5 RBC 3.24 L Hgb 9.5 L Hct 29.5 L MCV 91.0 MCH 29.3 MCHC 32.2 RDW 13.4 Plt Count 256 MPV 8.2 L Neut % (Auto) 62.3 Lymph % (Auto) 16.6 L [place] % (Auto) 14.2 H Eos % (Auto) 4.3 Baso % (Auto) 0.4 Neut # (Auto) 6.6 H Lymph # (Auto) 1.8 [place] # (Auto) 1.5 H Eos # (Auto) 0.5 Baso # (Auto) 0.0 Abs Immat Gran (auto) 0.23 H Imm/Tot Granulo (auto) 2.2 H Sodium 137 Potassium 4.2 Chloride 104 Carbon Dioxide 19.0 L Anion Gap 18.2 BUN 49.0 H Creatinine 3.51 H Est GFR ( Amer) 21 L Est GFR (Non-Af Amer) 18 L BUN/Creatinine Ratio 14.0 Glucose 57 L Calcium 8.5 POC Glucose 128 H 49 L* 08/28/24 08/28/24 08/28/24 21:12 17:33 11:18 WBC RBC Hgb Hct MCV MCH MCHC RDW Plt Count MPV Neut % (Auto) Lymph % (Auto) [place] % (Auto) Eos % (Auto) Baso % (Auto) Neut # (Auto) Lymph # (Auto) [place] # (Auto) Eos # (Auto) Baso # (Auto) Abs Immat Gran (auto) Imm/Tot Granulo (auto) Sodium Potassium Chloride Carbon Dioxide Anion Gap BUN Creatinine Est GFR ( Amer) Est GFR (Non-Af Amer) BUN/Creatinine Ratio Glucose Calcium POC Glucose 232 H 142 H 84 Preliminary micro results at discharge 08/26/24 11:11 Aerobic Culture - Preliminary Foot - Wound Beta hemolytic Strep group B Gram negative melissa 08/26/24 11:56 Blood Culture Result 2 - Preliminary Blood NO GROWTH AT 36-48 HOURS. FINAL TO FOLLOW. 08/26/24 11:45 Blood Culture Result 1 - Preliminary Blood - Left Antecubital NO GROWTH AT 36-48 HOURS. FINAL TO FOLLOW. Discharge Plan Discharge Disposition: Home, Self-Care Condition: Fair Discharge Medications: New amoxicillin-pot clavulanate [Augmentin] 500-125 mg tablet 1 tab PO BID 14 Days Qty: 28 0RF Continued montelukast 10 mg tablet 10 mg PO .QHS Renal Caps 1 mg capsule 1 cap PO QDAY rosuvastatin 20 mg tablet 20 mg PO .QHS One-A-Day Men's 50 Plus 400-370 mcg tablet 1 tab PO QDAY bupropion HCl 300 mg tablet extended release 24 hr 300 mg PO QDAY Kerendia 20 mg tablet 20 mg PO QDAY sodium bicarbonate 325 mg tablet 325 mg PO TID insulin aspart U-100 [Novolog FlexPen U-100 Insulin] 100 unit/mL (3 mL) Insulin Pen 3 - 15 unit subcut ACHS Qty: 15 0RF Rx Instructions: BG 141-200 = 3 UNITS 201-250 = 5 UNITS 251-300 = 8 UNITS 301-350 = 12 UNITS 351-400 = 15 UNITS BG GREATER THAN 400 = 15, CALL PHYSICIAN Levemir FlexPen 100 unit/mL (3 mL) Insulin Pen 30 unit subcut QHS 30 Days Qty: 9 0RF duloxetine 60 mg capsule,delayed release(DR/EC) 60 mg PO .QHS Jardiance 25 mg tablet 25 mg PO DAILY famotidine 20 mg tablet 20 mg PO .QHS torsemide 20 mg tablet 40 mg PO QAM Activity: resume usual activities as tolerated Diet: advance to your usual diet Print Language: Tamazight Forms: Portal Instructions Follow Up Appointments: May 6 @ 2pm with Dr. Zambrano [phone]
[2024-08-29] MEDS: SODIUM BICARBONATE 325 MG TABLET PO (09:03)
[2024-08-29] MEDS: MULTIVITAMIN TABLET 1 TAB PO (09:03)
[2024-08-29] MEDS: TORSEMIDE 20 MG TABLET 40 MG PO (09:03)
[2024-08-29] MEDS: AMOXICILLIN/CLAV SUSP 250-62.5 MG/5 ML 75 ML 500 MG PO (09:04)
[2024-08-29] MEDS: BUPROPION HCL 150 MG XL TABLET 24H 300 MG PO (09:05)
[2024-08-29] MEDS: EMPAGLIFLOZIN 25 MG 25 EACH PO (09:06)
[2024-08-29] MEDS: FINERENONE 20 MG 20 EACH PO (09:06)
[2024-08-29] MEDS: FOLIC ACID/VIT B6/VIT B12 TABLET 1 TAB PO (09:11)
--- NOTE | 2024-08-31 10:29 | CM.NOTE ---
Faxed wound culture result to Dr. Zambrano office.
--- NOTE | 2024-08-31 14:58 | CM.DCFOLLOWU ---
1st attempt 08/31/24, no answer
--- NOTE | 2024-09-01 13:33 | CM.DCFOLLOWU ---
Person spoke with:patient How are you feeling?well How is your pain? off and on Did you understand your discharge instructions? yes Do you have any questions about your discharge instructions? no Were you given any prescriptions at discharge? yes Were you able to get your prescriptions filled?yes Do you understand how to take your medications as ordered?yes Do you have any questions about your follow up appointment and do you plan to keep your follow up appointment? no questions, on way to follow up now Is there anything else that you would like to discuss?no Questions/Comments/Concerns/Other: none
== END 2024-08-29 10:23 | disposition home or self-care (01) | DRG 617 ==
LOC: ER 13:39 → MS 15:31
PROVIDERS: Podiatrist Foot & Ankle Surgery; Admitting Provider Family Medicine; Emergency Provider Emergency Medicine; PCP Internal Medicine; Visit Provider Family Medicine
PROC: 0Y6P0Z3 Detachment at Right 1st Toe, Low, Open Approach (ICD-10-PCS; principal; 2024-08-28 09:00)
DX: E11.621 Type 2 diabetes mellitus with foot ulcer (principal); L97.425 Non-pressure chronic ulcer of left heel and midfoot with muscle involvement without evidence of necrosis; M86.171 Other acute osteomyelitis, right ankle and foot; L97.514 Non-pressure chronic ulcer of other part of right foot with necrosis of bone; E11.69 Type 2 diabetes mellitus with other specified complication; E11.42 Type 2 diabetes mellitus with diabetic 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; E11.65 Type 2 diabetes mellitus with hyperglycemia; D63.1 Anemia in chronic kidney disease; M24.572 Contracture, left ankle; J44.9 Chronic obstructive pulmonary disease, unspecified; I12.9 Hypertensive chronic kidney disease with stage 1 through stage 4 chronic kidney disease, or unspecified chronic kidney disease; E11.51 Type 2 diabetes mellitus with diabetic peripheral angiopathy without gangrene; N18.4 Chronic kidney disease, stage 4 (severe); E78.5 Hyperlipidemia, unspecified; F17.200 Nicotine dependence, unspecified, uncomplicated; Z89.412 Acquired absence of left great toe; Z79.899 Other long term (current) drug therapy; Z79.4 Long term (current) use of insulin; Z79.84 Long term (current) use of oral hypoglycemic drugs
CPT/HCPCS: 36415; 73630; 80048; 80053; 82948; 83036; 83605; 85025; 85610; 85652; 86140; 87040; 87070; 87075; 87077; 87102; 87116; 87176; 87186; 87205; 87206; 93005; 96365; 96367; 97161; 99285; 99999; J0360; J1650; J2250; J2543; J2704; J3010; J3370

== ENCOUNTER 2024-09-01 14:07 | Outpatient (OUT) | payer BC, SELFPAY | END 2024-09-01 14:08 | disposition home or self-care (01) | LOC: WC 14:07 | PROVIDERS: PCP Internal Medicine; Visit Provider Physician Assistant | DX: E11.621 Type 2 diabetes mellitus with foot ulcer (principal); L97.422 Non-pressure chronic ulcer of left heel and midfoot with fat layer exposed; L97.515 Non-pressure chronic ulcer of other part of right foot with muscle involvement without evidence of necrosis | CPT/HCPCS: G0463 ==

== ENCOUNTER 2024-09-04 09:00 | Outpatient (OUT) | payer BC, SELFPAY | END 2024-09-04 09:01 | disposition home or self-care (01) | LOC: WC 09-07 11:26 | PROVIDERS: PCP Internal Medicine; Visit Provider Podiatrist Foot & Ankle Surgery | DX: E11.621 Type 2 diabetes mellitus with foot ulcer (principal); L97.422 Non-pressure chronic ulcer of left heel and midfoot with fat layer exposed; L97.515 Non-pressure chronic ulcer of other part of right foot with muscle involvement without evidence of necrosis | CPT/HCPCS: G0463 ==

== ENCOUNTER 2024-09-08 14:26 | Outpatient (OUT) | payer BC, SELFPAY | END 2024-09-08 14:27 | disposition home or self-care (01) | LOC: WC 14:27 | PROVIDERS: PCP Internal Medicine; Visit Provider Physician Assistant | DX: E11.621 Type 2 diabetes mellitus with foot ulcer (principal); L97.422 Non-pressure chronic ulcer of left heel and midfoot with fat layer exposed; T81.89XD Other complications of procedures, not elsewhere classified, subsequent encounter | CPT/HCPCS: 11043 ==

== ENCOUNTER 2024-09-15 14:24 | Outpatient (OUT) | payer BC, SELFPAY | END 2024-09-15 14:25 | disposition home or self-care (01) | LOC: WC 14:24 | PROVIDERS: PCP Internal Medicine; Visit Provider Physician Assistant | DX: E11.621 Type 2 diabetes mellitus with foot ulcer (principal); L97.422 Non-pressure chronic ulcer of left heel and midfoot with fat layer exposed; T81.89XD Other complications of procedures, not elsewhere classified, subsequent encounter | CPT/HCPCS: G0463 ==

== ENCOUNTER 2024-09-23 14:21 | Outpatient (OUT) | payer BC, SELFPAY ==
--- OUTSIDE RECORDS SUMMARY | 2024-09-23 14:24 | XMS_ITS | Encounter Summary ---
Author Organization [id number] [address] [place] [address] Care Team Providers Care Coordinator Of Rehabilitation Services Name Role Phone Tod Charles DO, Charles L Primary Care Provider Encounter Details Date Type Department Care Team (Late st Contact Info) Description 07/14/2020 Documentation [facility] Sign In [address] [place] [id number] Kishore Solorio MD [address] [place] [address] Social History Tobacco Use Types Packs/Day Years Used Date Smoking Tobacco: Former Cigarettes Q uit: 02/11/2016 Smokeless Tobacco: Never Alcohol Use Standard Drinks/Week Comments No 0 (1 standard drink = 0.6 oz pur e alcohol) Childcare Answer Date Recorded Childcare Unknown 10/08/2018 Employment Answer Date Recorded Employment Unknown 10/08/2018 Purpose - Life Answer Date Recorded Purpose and direction in life Unknown Sex and Gender Information Value Date Recorded Sex Assigned at Not on file Legal Sex Male 11:43 AM EDT Gender Identity Not on file Sexual Orientation Not on file documented as of this encounter Plan of Treatment Not on file documented as of this encounter Visit Diagnoses Not on filedocumented in this encounter Additional Health Concerns Infection Onset Date Last Indicated Resolved Time MRSA Comment:right leg 10/07/09 & 12/04/09; 11/20/2013 10/09/2009 10/09/2009 12/23/2020 11:19 PM EDT documented as of this encounter Care Teams Coordinator Of Rehabilitation Services Relationship Specialty Start Date End Date Jose Baron Jr., DO [address] [place] [address] PCP - General Internal Medicine 02/10/17 documented as of this encounter
--- OUTSIDE RECORDS SUMMARY | 2024-09-23 14:24 | XMS_ITS | Clinical Summary ---
Author Organization [employer] Address [id number] [address] [place] [address] Care Team Providers Care Cable Layer Name Role Phone Tod Charles DO, Charles L Primary Care Provider Allergies Active Allergy Reactions Criticality Noted Date Comments Aspirin High 07/20/2016 Reaction: Kidney failure Exenatide 07/20/2016 Reaction unknown Celecoxib 07/20/2016 Reaction unknown Hylan G-F 20 07/20/2016 Reaction unknown Medications HYDROcodone-acet aminophen (NORCO) 5-325 mg per tablet Take 1 tablet by mouth every 6 (six) hours as needed for pain. Active albuterol (PROVENTIL HFA) 90 mcg/actuation inhaler Inhale 2 puffs every 6 (six) hours as needed for wheezing. Active docusate sodium (STOOL SOFTENER) 100 mg capsule Take 1 capsule (100 mg total) by mouth in the morning and 1 capsule (100 mg total) before bedtime. Active calcium acetate (PHOSLO) 667 mg capsule Take 1 tablet by mouth 3 (three) times a day with meals. Active tamsulosin (FLOMAX) 0.4 mg capsule,extended release 24hr Take 0.4 mg by mouth daily. Active rosuvastatin (CRESTOR) 10 mg tablet Take 1 tablet (10 mg total) by mouth in the morning. Active famotidine (PEPCID) 20 mg tablet Take 1 tablet (20 mg total) by mouth in the morning and 1 tablet (20 mg total) before bedtime. Active montelukast (SINGULAIR) 10 mg tablet Take 10 mg by mouth nightly. Active varenicline (CHANTIX) 1 mg tablet Take 1 mg by mouth daily. Take with full glass of water. Active insulin degludec (TRESIBA FLEXTOUCH U-200) 200 unit/mL (3 mL) insulin pen Inject 100 Units under the skin in the morning. Active meclizine (ANTIVERT) 25 mg tablet Chew 1 tablet (25 mg total) and swallow in the morning. Active buPROPion SR (WELLBUTRIN SR) 150 mg 12 hr tablet Take 1 tablet (150 mg total) by mouth in the morning. Active colesevelam (WELCHOL) 625 mg tablet Take 650 mg by mouth Medrol Dose Pack scheduling ONLY. Active biotin 5,000 mcg tablet,disintegr ating Dissolve 10,000 mcg on tongue 2 (two) times a day. Active OXcarbazepine (TRILEPTAL) 300 mg tablet Take 300 mg by mouth once daily at bedtime. Active sevelamer (RENAGEL) 400 mg tablet Take 1 tablet (400 mg total) by mouth in the morning. Active sulfamethoxazole -trimethoprim (BACTRIM DS) 800-160 mg per tablet Take 1 tablet by mouth 2 (two) times a day. Active insulin glargine-lixisen atide (SOLIQUA 100/33) 100 unit-33 mcg/mL insulin pen Inject 60 Unit under the skin daily. Active methotrexate 2.5 mg chemo tablet Take 1 tablet by mouth once a week Active traZODone (DESYREL) 50 mg tablet Take 50 mg by mouth nightly. Active folic acid (FOLVITE) 1 mg tablet Take 1 mg by mouth daily. Active losartan (COZAAR) 50 mg tablet Take 2 tablets (100 mg total) by mouth in the morning. Active sodium bicarbonate 325 mg tablet Take 1 tablet (325 mg total) by mouth in the morning. Active triamcinolone (KENALOG) 0.1 % cream Apply 1 application topically 2 (two) times a day. Active pregabalin (LYRICA) 75 mg capsuleIndicatio ns:Diabetic peripheral neuropathy (CMS-HCC) Take 1 capsule (75 mg total) by mouth 3 (three) times a day. 90 capsule 1 9 Active Additional Information Patient not taking.Reported on 02/27/2024 Active Problems Problem Noted Date Diagnosed Date Critical limb ischemia of le ft lower extremity with gangrene 02/27/2024 Assessment & Plan (02/27/2024 11:44 AM EDT): PVR Disc displacement, lumbar 05/28/2019 Overview (05/28/2019): Added automatically from request for surgery [id number] Cellulitis of foot, left 09/29/2017 Other idiopathic peripheral autonomic neuropathy 07/20/2016 Immunizations Immunization Administration Dates Next Due Tdap 02/10/2017 Family History Medical History Relation Name Comments Asthma Mother Relation Name Status Comments Mother Social History Tobacco Use Types Packs/Day Years Used Date Smoking Tobacco: Former Cigarettes Q uit: 02/11/2016 Smokeless Tobacco: Never Alcohol Use Standard Drinks/Week Comments No 0 (1 standard drink = 0.6 oz pur e alcohol) Childcare Answer Date Recorded Childcare Unknown 10/08/2018 Employment Answer Date Recorded Employment Unknown 10/08/2018 Hunger Screening Answer Date Recorded Within the past 12 months we worried whether our food would run out before we got money to buy more. Never True 02/27/2024 Within the past 12 months th e food we bought just didn't last and we didn't have money to get more. Never True 02/27/2024 Purpose - Life Answer Date Recorded Purpose and direction in life Unknown Sex and Gender Information Value Date Recorded Sex Assigned at Not on file Legal Sex Male 11:43 AM EDT Gender Identity Not on file Sexual Orientation Not on file Last Filed Vital Signs Vital Sign Reading Time Taken Comments Blood Pressure 130/80 02/27/2024 11:25 AM EDT Pulse 78 02/27/2024 11:25 AM EDT Temperature 36.2 C (97.1 F) 02/27/2024 11:25 AM EDT Respiratory Rate 18 06/05/2019 9:46 AM EST Oxygen Saturation 98% 02/27/2024 11:25 AM EDT Inhaled Oxygen Concentration - - Weight 104.3 kg (230 lb) 02/27/2024 11:25 AM EDT Height 193 cm (6' 4 ) 02/27/2024 11:25 AM EDT Body Mass Index 28 02/27/2024 11:25 AM EDT Plan of Treatment Health Maintenance Due Date Last Done Comments Diabetic Ophthalmology Exam 1960 Depression Screening 1972 Adult BMI Follow Up Plan 02/04/1978 Diabetic Foot Exam 02/04/1978 Zoster (Shingles) Vaccine (1 of 2) 02/04/2010 COVID-19 Vaccine ( season) 2023, 10/03/2020 Urine Microalbumin 05/06/2024 05/06/2023 Influenza Vaccine 12/28/2024 01/29/2020, 05/27/2015 Adult BMI Screening 02/26/2025 02/27/2024 Tobacco Screening 02/26/2025 02/27/2024 DTaP,Tdap and Td Vaccines (2 - Td or Tdap) 02/10/2027 02/10/2017 Medical Devices Not on file Procedures Procedure Name Priority Date/Time Associated Diagnosis Comments MICROALBUMIN / CREATININE URINE RATIO Routine 05/06/2023 8:54 AM EST from Last 3 Months or Most Recently Relevant to Health Maintenance Results * (ABNORMAL) Microalbumin - Albumin: Creatinine Urine Ratio (05/06/2023 8:54 AM EST) Microalbumin urine 195.2(H) 0.0 - 1.9 mg/dL 05/06/2023 4:39 PM EST [facility] Urine creat 71.06 mg/dL 05/06/2023 4:39 PM [facility] Alb/creat ratio 2,747.0(H ) 0.0 - 30.0 mg/g creat 05/06/2023 4:39 PM EST [facility] Urine / Unknown 05/06/2023 8 :54 AM EST 05/06/2023 11:54 AM EST us Jose Baron Jr., DO URINE ORDERABLES Final Result [facility] [address] [place] [address] from Last 3 Months or Most Recently Relevant to Health Maintenance Insurance [employer] Advance Directives * Full Code (Latest Code Status on File) Date Activated Date Inactivated Comments 09/30/2017 12:06 PM 09/30/2017 8:03 PM Care Teams Cable Layer Relationship Specialty Start Date End Date Jose Baron Jr., [address] [place] [address] PCP - General Internal Medicine 02/10/17
--- OUTSIDE RECORDS SUMMARY | 2024-09-23 14:25 | XMS_ITS | Referral Summary ---
Author Organization [facility] Address [address] [place] [address] Care Team Providers Care Computational Theory Scientist Name Role Phone Unavailable Primary Care Provider Unavailabl e Social History Tobacco Use Types Packs/Day Years Used Date Smoking Tobacco: Never Assessed Sex and Gender Information Value Date Recorded Sex Assigned at Not on file Gender Identity Not on file Sexual Orientation Not on file Last Filed Vital Signs Vital Sign Reading Time Taken Comments Blood Pressure 186/92 07/27/2020 10:40 AM EDT Pulse 81 07/27/2020 10:39 AM EDT Temperature - - Respiratory Rate - - Oxygen Saturation 98% 07/27/2020 10:39 AM EDT Inhaled Oxygen Concentration - - Weight 174 kg (383 lb 15.9 oz) 07/27/2020 10:31 AM EDT Height 193 cm (6' 4 ) 07/27/2020 10:31 AM EDT Body Mass Index 46.74 07/27/2020 10:31 AM EDT Plan of Treatment Not on file
--- OUTSIDE RECORDS SUMMARY | 2024-09-23 14:25 | XMS_ITS | Clinical Summary ---
Author Organization [facility] Address [address] [place] [address] Care Team Providers Care Glass Block Bender Name Role Phone Unavailable Primary Care Provider [...]
--- OUTSIDE RECORDS SUMMARY | 2024-09-23 14:25 | XMS_ITS | Encounter Summary ---
Author Organization [facility] Address [address] [place] [address] Care Team Providers Care Auto Research Engineer Name Role Phone Jose Baron MD Primary Care Provider [phone] Encounter Details Date Type Department Care Team (Late st Contact Info) Description 11/19/2023 Clinisync Result Encounter [facility] External Department Unsolicited Ajay Archer MD [address] [place] [id number] Social History Tobacco Use Types Packs/Day Years Used Date Smoking Tobacco: Never Assessed Sex and Gender Information Value Date Recorded Sex Assigned at Not on file Legal Sex Male 7:24 PM EDT Gender Identity Not on file Sexual Orientation Not on file documented as of this encounter Plan of Treatment Not on file documented as of this encounter Procedures Procedure Name Priority Date/Time Associated Diagnosis Comments US VENOUS DOPPLER LE LT 11/19/2023 5:24 PM EDT documented in this encounter Results * US VENOUS DOPPLER LE LT (11/19/2023 5:24 PM EDT) Anatomical Region Laterality Modality Other 11/19/2023 5:24 PM EDT Narrative 11/19/2023 5:27 PM EDT The [address] [address] Ultrasound Report Signed Patient: RASHARD LYMAN MR#: [id number] : 1960 Acct:[id number] Age/Sex: 63 / M ADM Date: 11/19/23 Loc: US Attending Dr: Ajay Archer M.D. Ordering Physician: Ajay Archer M.D. Date of Service: 11/19/23 Procedure(s): US venous doppler LE LT Accession Number(s): [id number] cc: Imer Zambrano D.P.M.; Ajay Archer M.D. [address] [address] Patient Name: RASHARD LYMAN MRN: [id number] date: 1960 Sex: M Assigned Patient Location: US Current Patient Location: US Accession/Order Number: [id number] Exam Date: 11/19/2023 16:06 Report Date: 11/19/2023 17:24 At the request of: AJAY ARCHER Procedure: US venous doppler LE LT EXAM: US venous doppler LE LT HISTORY: Left Leg Swelling COMPARISON: 01/28/2023 TECHNIQUE: Multiple sonographic images of the deep veins of the left lower extremity were obtained, supplemented with Doppler. FINDINGS: The deep veins of the left lower extremity are fairly well-visualized the groin to the mid calf. No filling defect is identified to indicate a thrombus. There is normal compression augmentation to flow. Again seen are hypoechoic nodule structures in the lower calf/ankle and in the region of the groin. The etiology is uncertain. US/US venous doppler LE LT IMPRESSION: There is no direct or indirect evidence of deep vein thrombosis in the left lower extremity at this time, and similar findings were noted in the prior study. Small nodular structures are noted in the groin and lower calf, of uncertain etiology. These could conceivably be lymph nodes, and the overall appearance is unchanged. Electronically authenticated by: IMER VENEGAS Date: 11/19/2023 17:24 Dictated By: Imer Venegas M.D. Signed By: 11/19/231726 DD/ 23 TD/TT: Crystal Flat Grinder: Procedure Note Radiology, Radiologist, MD - 11/19/[address] [address] Ultrasound Report Signed Patient: RASHARD LYMANMR#: [id number] : 1960Acct:[id number] Age/Sex: 63 / MADM Date: 11/19/23 Loc: US Attending Dr: Ajay Archer M.D. Ordering Physician: Ajay Archer M.D. Date of Service: 11/19/23 Procedure(s): US venous doppler LE LT Accession Number(s): [id number] cc: Imer Zambrano D.P.M.; Ajay Archer M.D. [place] [id number] Patient Name: RASHARD LYMAN MRN: [id number] date: 1960 Sex: M Assigned Patient Location: US Current Patient Location: US Accession/Order Number: [id number] Exam Date: 11/19/2023 16:06 Report Date: 11/19/2023 17:24 At the request of: AJAY ARCHER Procedure: US venous doppler LE LT EXAM: US venous doppler LE LT HISTORY: Left Leg Swelling COMPARISON: 01/28/2023 TECHNIQUE: Multiple sonographic images of the deep veins of the left lower extremity were obtained, supplemented with Doppler. FINDINGS: The deep veins of the left lower extremity are fairly well-visualized the groin to the mid calf. No filling defect is identified to indicate a thrombus. There is normal compression augmentation to flow. Again seen are hypoechoic nodule structures in the lower calf/ankle and inthe region of the groin. The etiology is uncertain. US/US venous doppler LE LT IMPRESSION: There is no direct or indirect evidence of deep vein thrombosis in theleft lower extremity at this time, and similar findings were noted in the prior study. Small nodular structures are noted in the groin and lower calf, ofuncertain etiology. These could conceivably be lymph nodes, and the overallappearance is unchanged. Electronically authenticated by: IMER VENEGAS Date: 11/19/2023 17:24 Dictated By: Imer Venegas M.D. Signed By:11/19/231726 DD/ 23 TD/TT: Crystal Flat Grinder: Ajay Archer MD [facility] Final Result documented in this encounter Visit Diagnoses Not on filedocumented in this encounter Care Teams Auto Research Engineer Relationship Specialty Start Date End Date Jose Baron MD [facility] [place] [id number] PCP - General Internal Medicine 09/07/24 documented as of this encounter
--- OUTSIDE RECORDS SUMMARY | 2024-09-23 14:25 | XMS_ITS | Patient Health Record ---
Author Organization [facility] in [place] Address [address] [place] [address] Care Team Providers Care Assistant Professor Of Biology Name Role Phone William SIGALA, [place] Primary Care Provider Yanna flores Results Component Value Reference Range Notes MR ankle LT wo con (Not yet reviewed by provider) Interpretation: Performing Lab: Notes/Report: Source Facility: [place] [address] Magnetic Resonance Report Signed Patient: RASHARD LYMAN MR#: [id number] : 1960 Acct:[id number] Age/Sex: 63 / M ADM Date: 01/30/24 Loc: MRI Attending Dr: Chino Zambrano D.P.M. Ordering Physician: Chino Zambrano D.P.M. Date of Service: 01/30/24 Procedure(s): MR ankle LT wo con Accession Number(s): [id number] cc: Chino Zambrano D.P.M.; GABRIEL JUAREZ D.O. [place] [address] Patient Name: RASHARD LYMAN MRN: [id number] date: 1960 Sex: M Assigned Patient Location: MRI Current Patient Location: MRI Accession/Order Number: [id number] Exam Date: 01/30/2024 13:30 Report Date: 01/31/2024 17:09 At the request of: CHINO ZAMBRANO Procedure: MR ankle LT wo con EXAM: MR ankle LT wo con. HISTORY: Ulcer, chronic osteomyelitis. COMPARISON: 01/21/2024 TECHNIQUE: MRI images obtained with multiple sequences. MRI of the left ankle without contrast. Sequences obtained by standard department protocol. 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 There is an unstable osteochondral fragment measuring approximately 14 x 7 mm, there is partial undercutting of the osteochondral fragment with high signal/fluid. Subtalar joint in normal alignment. No significant degeneration of the subtalar joint. No definitive evidence for osteomyelitis. Extensor, flexor and peroneal tendons are intact at the level of the ankle. Achilles tendon is intact. Posterior aspect of the plantar fascia is intact. No other definitive acute fractures. Amputation of the forefoot at the level of the proximal metatarsals. MR/MR ankle LT wo con IMPRESSION: 1. No definitive evidence for osteomyelitis. 2. Distal tibia bone infarct. 3. 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 There is an osteochondral fragment measuring approximately 14 x 7 mm, there is partial undercutting of the osteochondral fragment with high signal/fluid. 4. Amputation of the forefoot at the level of the proximal metatarsals. Electronically authenticated by: VALERIANO ALEXIS Date: 01/31/2024 17:09 Dictated By: Valeriano Alexis M.D. Signed By: 01/31/241710 DD/ 08 TD/TT: Economic Development Manager: [place] [address] Magnetic Resonance Report Signed Patient: MOIRA LYMAN MR#: [id number] : 1960 Acct:[id number] Age/Sex: 63 / M ADM Date: 01/30/24 Loc: MRI Attending Dr: Chino Zambrano D.P.M. Ordering Physician: Chino Zambrano D.P.M. Date of Service: 01/30/24 Procedure(s): MR ank le LT wo con Accession Number(s): [id number] cc: Chino Zambrano D.P.M.; GABRIEL JUAREZ D.O. [place] [address] Patient Name: RASHARD LYMAN MRN: [id number] date: 1960 Sex: M Assigned Patient Location: MRI Current Patient Location: MRI Accession/Order Lucille er: [id number] Exam Date: 13:30 Report Date: 01/31/2024 17:09 At the request of: CHINO ZAMBRANO Procedure: MR ankle LT wo con EXAM: MR ankle LT wo con. HISTORY: Ulcer, foot specialist vasiliy osteomyelitis. COMPARISON: 01/21/2024 TECHNIQUE: MRI image s obtained with multiple sequences. MRI of the left ankle without contrast. Sequences obtained by standard department protocol. 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 There is an unstable osteochondral fragme nt measuring approximately 14 x 7 mm, there is partial undercutting of the osteochondral fragment with high signal/fluid. Subtalar joint in no rmal alignment. No significant degeneration of the subtalar joint. No definitive eviden ce for osteomyelitis. Extensor, flexor and peroneal tendons are intact at the level of the ankle. Achilles tendon is intact. Posterior aspect of the plantar fascia is intact. No other definitive acute fractures. Amputation of the forefoot at the level of the proximal metatarsals. M R/MR ankle LT wo con IMPRESSION: 1. No definitive evidence for osteomyelitis. 2. Distal tibia bone infarct. 3. 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 There is an osteochondral fragme nt measuring approximately 14 x 7 mm, there is partial undercutting of the osteochondral fragment with high signal/fluid. 4. Amputation of the forefoot at the level of the proximal metatarsals. Electronically authenticated by: VALERIANO ALEXIS Date: 01/31/2024 17:09 Dictated By: Lorene Alexis M.D. Signed By: 01/31/24 171 DD/ 170 TD/TT: Economic Development Manager: AFB Specimen Processing (Not yet reviewed by provider) Interpretation: Performing Lab: Notes/Report: Comment right hallux [facility] , AFB Specimen Processing See Below For Report AFB Specimen Processing AFB Specimen Processing Tissue Grinding AFB Specimen Processing Performing Lab: see note LC - [facility] Acid Fast Smear (Not yet rev iewed by provider) Interpretation: Performing Lab: Notes/Report: Comment right hallux [facility] , Acid Fast Smear See Below For Report Acid Fast Smear Negative Performing Lab: see note LC - [facility] Acid Fast Culture (Not yet r eviewed by provider) Interpretation: Performing Lab: Notes/Report: Comment right hallux [facility] , Acid Fast Culture See Below For Report Specimen has been received and testing has been initiated. Acid Fast Culture Acid Fast Culture Performed at: [facility] Specimen has been received and testing has been initiated. Acid Fast Culture Acid Fast Culture [address] [place], [place] [id number] Specimen has been received and testing has been initiated. Acid Fast Culture Acid Fast Culture Furniture Salesperson: Phyllis Brian PhD, Phone: [phone] Specimen has been received and testing has been initiated. Acid Fast Culture Performing Lab: see note SEE REPORT - Repairer Kiln Car Id information not found for OBX-specific studio producer legend - [facility] Fungus (Mycology) Culture (N ot yet reviewed by provider) Interpretation: Performing Lab: Notes/Report: Comment right hallux [facility] , Fungus (Mycology) Culture See Below For Report Fungus (Mycology) Culture Please refer to the following specimen for additional lab results. Fungus (Mycology) Culture SEE: [phone] Fungus (Mycology) Culture Please refer to the following specimen for additional lab results. Performing Lab: see note SEE REPORT - Repairer Kiln Car Id information not found for OBX-specific studio producer legend - [facility] Fungus Stain (Not yet review ed by provider) Interpretation: Performing Lab: Notes/Report: Comment right hallux [facility] , Fungus Stain See Below For Report Fungus Stain Fungus Stain Please refer to the following specimen for additional lab results. Fungus Stain Fungus Stain SEE: [phone] Fungus S taililliam Performing Lab: see note SEE REPORT - Repairer Kiln Car Id information not found for OBX-specific studio producer legend - [facility] Erythrocyte Sedimentation Ra te (Not yet reviewed by provider) Interpretation: Performing Lab: Notes/Report: [facility] , Erythrocyte Sedimentation Rate >130 <=20 mm/hr Performing Lab: see note ML - [facility] PROF CHEM 8 (BAS METB) (Not yet reviewed by provider) Interpretation: Performing Lab: Notes/Report: [facility] , Sodium 130 136-145 mmol/L Potassium 4.4 3.5-5.1 mmol/L Chloride 98 98-107 mmol/L Carbon Dioxide 17.3 21.0-32.0 mmol/L Anion Gap 19.1 Glucose 378 74-106 mg/dL Blood Urea Nitrogen 61.0 7.0-18.0 mg/dL Creatinine 5.60 0.70-1.30 mg/dL 1401 RESULTS CALLED TO KATELYN CARBONE RN @BY Priscilla Contreras at Estimated GFR ( Camilla 13 >=60 mL/min/1.73m 2 Estimated GFR (Non- Em 10 >=60 mL/min/1.73m 2 BUN Creatinine Ratio 10.9 Calcium 9.0 8.5-10.1 mg/dL Performing Lab: see note ML - [facility] CRP (Not yet reviewed by pro vider) Interpretation: Performing Lab: Notes/Report: [facility] , C Reactive Protein 1.75 <=0.50 mg/dL Performing Lab: see note ML - [facility] CBC AUTO DIFF (Not yet revie wed by provider) Interpretation: Performing Lab: Notes/Report: [facility] , White Blood Count 11.3 4.0-11.0 10 3/uL Red Blood Count 4.52 4.70-6.10 10 6/uL Hemoglobin 13.1 14.0-18.0 g/dL Hematocrit 40.9 42.0-54.0 % Mean Corpuscular Volume 90.5 80.0-94.0 fL Mean Corpuscular Hemoglobin 29.0 25.9-34.0 pg Mean Corpuscular HGB Conc 32.0 29.9-35.2 g/dL Red Cell Distribution Width 13.2 11.0-15.0 % Platelet Count 319 150-450 10 3/uL Mean Platelet Volume 9.0 9.5-13.5 fL Neutrophils Percent Auto 69.0 43.0-75.0 % Lymphocytes Percent Auto 17.6 20.5-60.0 % Monocytes Percent Auto 6.9 1.7-12.0 % Eosinophils Percent Auto 4.2 0.9-7.0 % Basophils Percent Auto 0.4 0.2-2.0 % Immature Granulocytes Pct Auto 1.9 0.0-0.5 % Neutrophils Absolute Auto 7.8 1.4-6.5 10 3/uL Lymphocytes Absolute Auto 2.0 1.2-3.8 10 3/uL Monocytes Absolute Auto 0.8 0.3-0.8 10 3/uL Eosinophils Absolute Auto 0.5 0.0-0.7 10 3/uL Basophils Absolute Auto 0.1 0.0-0.1 10 3/uL Immature Granulocytes Abs Auto 0.22 0.00-0.03 10 3/uL Performing Lab: see note ML - [facility] XR ankle LT min 3V (Not yet reviewed by provider) Interpretation: Performing Lab: Notes/Report: Source Facility: [place] [address] XRay Report Signed Patient: RASHARD LYMAN MR#: [id number] : 1960 Acct:[id number] Age/Sex: 63 / M ADM Date: 01/21/24 Loc: Attending Dr: Chino Zambrano D.P.M. Ordering Physician: Chino Zambrano D.P.M. Date of Service: 01/21/24 Procedure(s): XR ankle LT min 3V Accession Number(s): [id number] cc: Chino Zambrano D.P.M.; GABRIEL JUAREZ D.O. [place] [address] Patient Name: RASHARD LYMAN MRN: [id number] date: 1960 Sex: M Assigned Patient Location: Current Patient Location: Accession/Order Number: [id number] Exam Date: 01/21/2024 13:21 Report Date: 01/23/2024 06:45 At the request of: CHINO ZAMBRANO Procedure: XR ankle LT min 3V PROCEDURE: XR ankle LT min 3V, XR foot LT min 3V HISTORY: LEFT ANKLE PAIN COMPARISON: XR foot left 12/31/2023 FINDINGS: BONES:Prior forefoot amputation at level of the tarsal-metatarsal joints. Mild to moderate degenerative joint disease of the midfoot and ankle. No fracture, dislocation, or appreciable bone lesion. Large calcaneal plantar spur. Degenerative calcifications within the distal Achilles tendon. SOFT TISSUES:Defect within plantar soft tissues at level of the talus which extends proximally 7 mm into the soft tissues, but does not appear to contact the osseous structures. EFFUSION:None visible. OTHER: Negative. XR/XR ankle LT min 3V IMPRESSION: 1. Persistent plantar soft tissue wound. 2. No evidence of osteomyelitis. Electronically authenticated by: DESHAUN CADET Date: 01/23/2024 06:45 Dictated By: Deshaun Cadet M.D. Signed By: 01/23/24647 DD/ 4 TD/TT: Economic Development Manager: [place] [address] XRay Report Signed Patient: MOIRA LYMAN MR#: [id number] : 1960 Acct:[id number] Age/Sex: 63 / M ADM Date: 01/21/24 Loc: Attending Dr: Chino Zambrano D.P.M. Ordering Physician: Chino Zambrano D.P.M. Date of Service: 01/21/24 Procedure(s): XR ank le LT min 3V Accession Number(s): [id number] cc: Chino Zambrano D.P.M.; GABRIEL JUAREZ D.O. [place] [address] Patient Name: RASHARD LYMAN MRN: [id number] date: 1960 Sex: M Assigned Patient Location: Current Patient Location: Accession/Order Numb er: [id number] Exam Date: 01/21/2024 13:21 Report Date: 01/23/2024 06:45 At the request of: CHINO ZAMBRANO Procedure: XR ankle LT min 3V PROCEDURE: XR ankle LT min 3V, XR foot LT min 3V HISTORY: LEFT ANKLE PAIN COMPARISON: XR foot left 12/31/2023 FINDINGS: BONES:Prior forefoot amputation at level of the tarsal-metatarsal joints. Mild to moderate degenera tive joint disease of the midfoot and ankle. No fracture, dislocation, or appreciable bone lesion. Large calcaneal plantar spur. Degenerative calcifications within the distal Achilles tendon. SOFT TISSUES:Defect within plantar soft tissues at level of the talus which extends proximally 7 mm into the soft tissues, but does not appear to contact the osseous structures. EFFUSION:None visible. OTHER: Negative. X R/XR ankle LT min 3V IMPRESSION: 1. Persistent planta r soft tissue wound. 2. No evidence of osteomyelitis. Electronically authenticated by: DESHAUN CADET Date: 01/23/2024 06:45 Dictated By: Deshaun Cadet M.D. Signed By: 01/23/2448 DD/ 4 TD/TT: Economic Development Manager: XR foot RT min 3V (Not yet r eviewed by provider) Interpretation: Performing Lab: Notes/Report: Source Facility: [place] [address] XRay Report Signed Patient: RASHARD LYMAN MR#: [id number] : 1960 Acct:[id number] Age/Sex: 64 / M ADM Date: 08/26/24 Loc: MS 229-[address]: Ajay Vizcaino M.D. Ordering Physician: Chino Zambrano D.P.M. Date of Service: 08/28/24 Procedure(s): XR foot RT min 3V Accession Number(s): [id number] cc: Chino Zambrano D.P.M.; GABRIEL JUAREZ D.O. [place] [address] Patient Name: RASHARD LYMAN MRN: [id number] date: 1960 Sex: M Assigned Patient Location: MD Current Patient Location: MD Accession/Order Number: [id number] Exam Date: 08/28/2024 11:46 Report Date: 08/28/2024 11:47 At the request of: CHINO ZAMBRANO DPJuma Procedure: XR foot RT min 3V RIGHT FOOT - 3 views CLINICAL HISTORY: Postop right foot great toe removal. COMPARISON: Right foot 08/26/2024 FINDINGS: Postoperative changes are noted with amputation involving the distal aspect of the first digit. Previous amputation involving the distal aspect of the fifth digit. Soft tissue swelling is present. No soft tissue gas. No acute bony process. Scattered degenerative changes. XR/XR foot RT min 3V IMPRESSION: POSTOPERATIVE CHANGES INVOLVING THE FIRST DIGIT WITHOUT DEFINITIVE ACUTE PROCESS. Impression dictated by: Clayton Cuevas Jr., D.O. 08/28/2024 11:47 AM Dictation Location: [place] [address] Electronically authenticated by: [id number] Y Date: 08/28/2024 11:47 Dictated By: Clayton Cuevas M.D. Signed By: 08/28/24 1150 DD/ 1147 TD/TT: Economic Development Manager: [place] [address] XRay Report Signed Patient: MOIRA LYMAN MR#: [id number] : 1960 Acct:[id number] Age/Sex: 64 / M ADM Date: 08/26/24 Loc: MS 229-[address]: Ajay Vizcaino M.D. Ordering Physician: Chino Zambrano D.P.M. Date of Service: 08/28/24 Procedure(s): XR jeanette t RT min 3V Accession Number(s): [id number] cc: Chino Zambrano D.P.M.; GABRIEL JUAREZ D.O. [place] [address] Patient Name: RASHARD LYMAN MRN: [id number] date: 1960 Sex: M Assigned Patient Location: MD Current Patient Location: MD Accession/Order Numb er: [id number] Exam Date: 08/28/2024 11:46 Report Date: 08/28/2024 11:47 At the request of: CHINO ZAMBRANO DPM Procedure: XR foot R T min 3V RIGHT FOOT - 3 views CLINICAL HISTORY: Po stop right foot great toe removal. COMPARISON: Right fo ot 08/26/2024 FINDINGS: Postoperative change s are noted with amputation involving the distal aspect of the first digit. Previous amputation involving the distal aspect of the fifth digit. Soft tissue swelling is present. No soft tissue gas. No acute bony process. Scattered degenerative changes. X R/XR foot RT min 3V IMPRESSION: POSTOPERATIVE CHANGE S INVOLVING THE FIRST DIGIT WITHOUT DEFINITIVE ACUTE PROCESS. Impression dictated by: Clayton Cuevas Jr., D.O. 08/28/2024 11:47 AM Dictation Location: [place] [address] Electronically authenticated by: [id number] Y Date: 08/28/2024 11:47 Dictated By: Clayton Cuevas M.D. Signed By: 08/28/24 1150 DD/ 1147 TD/TT: Economic Development Manager: Tissue Culture (Not yet revi ewed by provider) Interpretation: Performing Lab: Notes/Report: [facility] , Tissue Culture See Below For Report Tissue Culture Please refer to the following specimen for additional lab results. Tissue Culture SEE: [phone] Tissue Culture Please refer to the following specimen for additional lab results. Performing Lab: see note SEE REPORT - Repairer Kiln Car Id information not found for OBX-specific studio producer legend LC - [facility] Tissue Culture (Not yet revi ewed by provider) Interpretation: Performing Lab: Notes/Report: [facility] , Tissue Culture See Below For Report Tissue Culture Isolated WILL FOLLOW O:BETAGB Tissue Culture Tissue Culture Isolated WILL FOLLOW O:BETAGB Tissue Culture Specimen has been received and testing has been initiated. Tissue Culture Isolated WILL FOLLOW O:BETAGB Tissue Culture Organism: Beta hemol ytic Strep group B : Tissue Culture Isolated WILL FOLLOW O:BETAGB Tissue Culture *ABNORMAL* Tissue Culture Isolated WILL FOLLOW O:BETAGB Tissue Culture Recovered from broth only. Tissue Culture Isolated WILL FOLLOW O:BETAGB Tissue Culture Penicillin and ampicillin are drugs of choice for Tissue Culture Isolated WILL FOLLOW O:BETAGB Tissue Culture treatment of beta-hemolytic streptococcal infections. Tissue Culture Isolated WILL FOLLOW O:BETAGB Tissue Culture Susceptibility testi ng of penicillins and other beta- Tissue Culture Isolated WILL FOLLOW O:BETAGB Tissue Culture lactam agents approv ed by the FDA for treatment of Tissue Culture Isolated WILL FOLLOW O:BETAGB Tissue Culture beta-hemolytic streptococcal infections need not be Tissue Culture Isolated WILL FOLLOW O:BETAGB Tissue Culture performed routinely because nonsusceptible isolates Tissue Culture Isolated WILL FOLLOW O:BETAGB Tissue Culture are extremely rare i n any beta-hemolytic streptococcus Tissue Culture Isolated WILL FOLLOW O:BETAGB Tissue Culture and have not been reported for Streptococcus pyogenes Tissue Culture Isolated WILL FOLLOW O:BETAGB Tissue Culture (group A). (CLSI) Tissue Culture Isolated WILL FOLLOW O:BETAGB Tissue Culture GAVE VERBAL TO KATHERYN Gomez Tissue Culture Isolated WILL FOLLOW O:BETAGB Tissue Culture Beta hemolytic Strep group B Tissue Culture Isolated WILL FOLLOW O:BETAGB Tissue Culture See Below For Report Tissue Culture Isolated WILL FOLLOW O:BETAGB Performing Lab: see note - [facility] Gram Stain Result (Not yet r eviewed by provider) Interpretation: Performing Lab: Notes/Report: [facility] , Gram Stain Result See Below For Report Gram Stain Result WILL FOLLOW Gram Stain Result Rare white blood cells. Gram Stain Result WILL FOLLOW Gram Stain Result Gram Stain Result WILL FOLLOW Gram Stain Result No organisms seen Gram Stain Result WILL FOLLOW Gram Stain Result Performed at: [facility] Gram Stain Result WILL FOLLOW Gram Stain Result [address] [place], [place] [id number] Gram Stain Result WILL FOLLOW Gram Stain Result Furniture Salesperson: Phyllis Brian PhD, Phone: [phone] Gram Stain Result WILL FOLLOW Performing Lab: see note SEE REPORT - Repairer Kiln Car Id information not found for OBX-specific studio producer legend - [facility] Reason For Referral No Information Medications Medication SIG (Take, Route, Frequency, Duration) Notes Start Date End Date Status Albuterol Sulfate 2.5 mg/3 mL (0.083%) 1 solution Q6H Active Proventil HFA CFC free 90 mcg/inh 1-2 aerosol Q4-6H Active Calcium 600+D 600 mg-200 units 1 tablet DAILY Active [facility] Stool Softener sodium 100 mg 2 capsule BID Active HYDROcodone-Acetaminophen 325 mg-7.5 mg 1 tablet BID Active Crestor 40 mg 1 tablet DAILY Active Ventolin HFA CFC free 90 mcg/inh 1-2 aerosol Q4-6H Active Once Daily Multiple Vitamins 1 tablet DAILY Active Verapamil HCl 120 mg 1 tablet BID Active Nasonex 50 mcg/inh 2 spray DAILY Active Lyrica 75 mg 1 capsule BID Ac tive Problems Problem Type SNOMED Code ICD Code Onset Dates Problem Status W/U Status Risk Notes Problem Foot ulcer due to type 2 diabetes mellitus (9949868983601) Type 2 diabetes mellitus with foot ulcer (E11.621) Active confirmed Problem 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) Active confirmed Problem Chronic ulcer of foot (436640263) 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) Active confirmed Problem Contracture of joint of left ankle (disorder) (256533781417534) Contracture, left ankle (M24.572) Active confirmed Problem Hyperlipidemia (61151382) Hyperlipidemia (E78.5) Active confirmed Problem Venous insufficiency of leg (disorder) (090053927) Venous insufficiency (I87.2) Active confirmed Problem Chronic kidney disease (190709693) CKD (chronic kidney disease) (N18.9) Active confirmed Problem Chronic ulcer of foot (666193442) 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) Active confirmed Problem Acquired equinus deformity of left foot (M21.6X2) Active confirmed Problem Delayed healing of surgical wound (finding) (973769665) Delayed surgical wound healing, subsequent encounter (T81.89XD) Active confirmed Problem Delayed healing of surgical wound (finding) (881385619) Delayed surgical wound healing (T81.89XA) Active confirmed Problem Polyneuropathy due to type 2 diabetes mellitus (714557359) Diabetes mellitus with 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 (E11.42) Active confirmed Problem Foot ulcer due to type 2 diabetes mellitus (1449915989393) Diabetes mellitus with foot ulcer due to multiple causes (E11.621) Active confirmed Problem Chronic osteomyelitis of left ankle (0984930071743760 ) Chronic osteomyelitis of left ankle (M86.672) Active confirmed Problem Non-pressure chronic ulcer of other part of right foot with muscle involvement without evidence of necrosis (L97.515) Active confirmed Problem Non-pressure chronic ulcer of other part of right foot with other specified severity (L97.518) Active confirmed Problem Chronic ulcer of left heel with fat layer exposed (L97.422) Active confirmed Problem Ischemic ulcer o f left heel with fat layer exposed (L97.422) Active confirmed Plan Of Treatment Pending Test Test Name Order Date BMP w/GFR 04/19/2023 BASIC METABOLIC PANL 02/27/2023 CBC AUTO DIFF 01/30/2024 CBC AUTO DIFF 08/15/2022 CRP 08/15/2022 CRP 01/30/2024 CULTURE ANAEROBIC 08/20/2022 CULTURE OTHER 08/20/2022 FUNGAL CULTURE 08/20/2022 GRAM STAIN 08/20/2022 POINT OF CARE GLUCOSE 08/20/2022 POINT OF CARE GLUCOSE 08/20/2022 PROF CHEM 8 (BAS METB) 08/15/2022 PROF CHEM 8 (BAS METB) 01/30/2024 SED RATE WESTERGREN 08/15/2022 AFB Specimen Processing 08/28/2024 Acid Fast Smear 08/28/2024 Acid Fast Culture 08/28/2024 XR foot LT min 3V 02/26/2023 XR foot LT min 3V 04/10/2023 XR foot RT min 3V 08/28/2024 XR ankle LT min 3V 01/23/2024 Fungus Stain 08/28/2024 Fungus (Mycology) Culture 08/28/2024 Erythrocyte Sedimentation Rate 4 MR ankle LT wo con 01/31/2024 Gram Stain Result 08/28/2024 Tissue Culture 08/28/2024 Tissue Culture 08/28/2024 Insurance Providers Payer Name Payer Address Payer Phone Subscriber Number Group Number Insured Name Patient Relationship to Insured Coverage Start Date Coverage End Date [employer] PPO PLUS LOCAL PLAN [address] [place] [address] [phone] [id number] Arabella Lyman Spouse - patient is the spouse of the insured 8 Medical (General) History Surgical History Surgery Date(Month/Year) History of cholecystectomy History of appendectomy Surgical / procedural histor y Carpal Tunnel release, Tonsillectomy, Adenoidectomy
--- OUTSIDE RECORDS SUMMARY | 2024-09-23 14:25 | XMS_ITS | Clinical Summary ---
Author Organization [facility] Healthcare Address [address] [place] [address] Care Team Providers Care Chemist Pharmaceutical Name Role Phone Jose Baron MD Primary Care Provider [phone]- [phone] Social History Tobacco Use Types Packs/Day Years Used Date Smoking Tobacco: Never Assessed Sex and Gender Information Value Date Recorded Sex Assigned at Not on file Legal Sex Male 7:24 PM EDT Gender Identity Not on file Sexual Orientation Not on file Last Filed Vital Signs Vital Sign Reading Time Taken Comments Blood Pressure 145/71 11/22/2017 12:00 PM EDT Pulse - - Temperature - - Respiratory Rate - - Oxygen Saturation - - Inhaled Oxygen Concentration - - Weight 158 kg (349 lb) 11/15/2020 12:00 PM EDT Height 188 cm (6' 2 ) 12/29/2020 12:00 PM EDT Body Mass Index 44.81 11/15/2020 12:00 PM EDT Plan of Treatment Not on file Insurance BS Care Teams Chemist Pharmaceutical Relationship Specialty Start Date End Date Jose Baron MD [address] [place] [address] PCP - General Internal Medicine 09/07/24
== END 2024-09-23 14:22 | disposition home or self-care (01) ==
LOC: WC 14:21
PROVIDERS: PCP Internal Medicine; Visit Provider Podiatrist Foot & Ankle Surgery
DX: E11.621 Type 2 diabetes mellitus with foot ulcer (principal); L97.422 Non-pressure chronic ulcer of left heel and midfoot with fat layer exposed; T81.89XD Other complications of procedures, not elsewhere classified, subsequent encounter
CPT/HCPCS: 11043

== ENCOUNTER 2024-10-08 14:48 | Outpatient (OUT) | payer BC, SELFPAY ==
--- OUTSIDE RECORDS SUMMARY | 2024-10-08 14:50 | XMS_ITS | Clinical Summary ---
Author Organization [place] [employer] Address [facility] [id number] [address] [place] [address] Care Team Providers Care Paste Plant Supervisor Name Role Phone Tod Charles DO, Charles [...] (05/28/2019): Added automatically from request for surgery [id number] Cellulitis of foot, left 09/29/2017 Other idiopathic [...] Vaccine (1 of 2) 02/04/2010 COVID-19 Vaccine (3 - season) 2023, 10/03/2020 Influenza Vaccine 12/28/2024 01/29/2020, 05/27/2015 Adult BMI Screening 02/26/2025 02/27/2024 Tobacco Screening 02/26/2025 02/27/2024 DTaP,Tdap and Td Vaccines (2 - Td or Tdap) 02/10/2027 02/10/2017 Medical Devices Not on file Insurance [facility] Advance Directives * Full Code (Latest Code Status on File) Date Activated Date Inactivated Comments 09/30/2017 12:06 PM 09/30/2017 8:03 PM Care Teams Paste Plant Supervisor Relationship Specialty Start Date End Date Jose Baron Jr., [address] [place], [place] [phone] PCP - General Internal Medicine 02/10/17
--- OUTSIDE RECORDS SUMMARY | 2024-10-08 14:50 | XMS_ITS | Referral Summary ---
Author Organization The [facility] Address [address] [place] [address] Care Team Providers Care Product Scientist Name Role Phone Unavailable Primary Care Provider Unavailabl e Social History Tobacco Use Types Packs/Day Years Used Date Smoking Tobacco: Never Assessed Sex and Gender Information Value Date Recorded Sex Assigned at Not on file Legal Sex Male 11:25 PM EDT Gender Identity Not on file [...] EDT Plan of Treatment Not on file Procedures Procedure Name Priority Date/Time Associated Diagnosis Comments HEMOGLOBIN A1C Routine 07/14/2020 4:19 AM EDT from Last 3 Months or Most Recently Relevant to Health Maintenance Results * (ABNORMAL) Hemoglobin A1c (07/14/2020 4:19 AM EDT) Hemoglobin A1C 11.9(H) 4.0 - 6.0 % LAB CONVERSIONS Estimated Average Glucose 295 mmol/L LAB CONVERSIONS 07/14/2020 4:19 AM EDT 07/14/2020 4:47 AM EDT Narrative LAB CONVERSIONS - 07/14/2020 9:30 AM EDT No: Do not add to previous draw us Srini Castillo MD LAB BLOOD ORDERABLES Final Re sult LAB CONVERSIONS from Last 3 Months or Most Recently Relevant to Health Maintenance Insurance [facility]
--- OUTSIDE RECORDS SUMMARY | 2024-10-08 14:50 | XMS_ITS | Patient Health Record ---
Author Organization [facility] [place] Address [address] [place] [address] Care Team Providers Care Camp Manager Name Role Phone William SIGALA, [place] Primary Care Provider Unavailrodrigue e Results Component Value Reference Range Notes CBC AUTO DIFF (Not yet revie wed by provider) Interpretation: Performing Lab: Notes/Report: [facility] , White Blood Count 11.3 4.0-11.0 [...] Performing Lab: see note ML - [facility] LB CRP (Not yet reviewed by pro vider) Interpretation: Performing Lab: Notes/Report: [facility] , C Reactive Protein 1.75 <=0.50 mg/dL Performing Lab: see note ML - [facility] PROF CHEM 8 (BAS METB) (Not yet reviewed by provider) Interpretation: Performing Lab: Notes/Report: [facility] , Sodium 130 136-145 mmol/L Potassium [...] Performing Lab: see note ML - [facility] LB Erythrocyte Sedimentation Ra te (Not yet reviewed by provider) Interpretation: Performing Lab: Notes/Report: [facility] , Erythrocyte Sedimentation Rate >130 <=20 mm/hr Performing Lab: see note ML - [facility] LB MR ankle LT wo con (Not yet reviewed by provider) Interpretation: Performing Lab: Notes/Report: Source Facility: [facility]-[address] [place] [address] [place] [address] Magnetic Resonance Report Signed Patient: RASHARD LYMAN MR#: [id number] : 1960 Acct:[id number] Age/Sex: 63 / M ADM Date: 01/30/24 Loc: MRI Attending Dr: Chino Zambrano D.P.M. Ordering Physician: Chino Zambrano D.P.M. Date of Service: 01/30/24 Procedure(s): MR ankle LT wo con Accession Number(s): [id number] cc: Chino Zambrano D.P.M.; GABRIEL JUAREZ D.O. [address] [address] Patient Name: RASHARD LYMAN MRN: [id number] date: 1960 Sex: M Assigned Patient Location: MRI Current Patient Location: MRI Accession/Order Number: [id number] Exam Date: 01/30/2024 13:30 Report Date: 01/31/2024 [...] Dictated By: Valeriano Alexis M.D. Signed By: 01/31/24 171 DD/ 08 TD/TT: Equipment Manager: [place] [address] Magnetic Resonance Report Signed Patient: MOIRA LYMAN MR#: [id number] : 1960 Acct:[id number] Age/Sex: 63 / M ADM Date: 01/30/24 Loc: MRI Attending Dr: Chino Zambrano D.P.M. Ordering Physician: Chino Zambrano D.P.M. Date of Service: 01/30/24 Procedure(s): MR ank le LT wo con Accession Number(s): [id number] cc: Chino Zambrano D.P.M.; GABRIEL JUAREZ D.O. [place] [address] Patient Name: RASHARD LYMAN MRN: [id number] date: 1960 Sex: M Assigned Patient Location: MRI Current Patient Location: MRI Accession/Order Numb er: [id number] Exam Date: 13:30 Report Date: 01/31/2024 17:09 At the request of: CHINO ZAMBRANO Procedure: MR ankle LT wo con EXAM: MR ankle LT wo con. HISTORY: Ulcer, tombstone polisher vasiliy osteomyelitis. COMPARISON: 01/21/2024 TECHNIQUE: MRI image [...] Dictated By: Lorene Alexis M.D. Signed By: 01/31/241710 DD/ 08 TD/TT: Equipment Manager: Tissue Culture (Not yet revi ewed by provider) Interpretation: Performing Lab: Notes/Report: [facility] , Tissue Culture See Below For Report Tissue Culture Please refer to the following specimen for additional lab results. Tissue Culture SEE: [phone] Tissue Culture Please refer to the following specimen for additional lab results. Performing Lab: see note SEE REPORT - [employer] Id information not found for OBX-specific supervising producer legend - [facility] LB Gram Stain Result (Not [...] WILL FOLLOW Gram Stain Result Performed at: [facility] Gram Stain Result WILL FOLLOW Gram Stain Result [address] [place], [place] [id number] Gram Stain Result WILL FOLLOW Gram Stain Result Clinical Informatics Director: Phyllis Brian PhD, Phone: [phone] Gram Stain Result WILL FOLLOW Performing Lab: see note SEE REPORT - [employer] Id information not found for OBX-specific supervising producer legend LC - [facility] LB Fungus (Mycology) Culture (N ot yet reviewed by provider) Interpretation: Performing Lab: Notes/Report: Comment right hallux [facility] , Fungus (Mycology) Culture See Below For Report Fungus (Mycology) Culture Please refer to the following specimen for additional lab results. Fungus (Mycology) Culture SEE: [phone] Fungus (Mycology) Culture Please refer to the following specimen for additional lab results. Performing Lab: see note SEE REPORT - [employer] Id information not found for OBX-specific supervising producer legend LC - [facility] LB Fungus Stain (Not yet review ed by provider) Interpretation: Performing Lab: Notes/Report: Comment right hallux [facility] , Fungus Stain See Below For Report Fungus Stain Fungus Stain Please refer to the following specimen for additional lab results. Fungus Stain Fungus Stain SEE: [phone] Fungus Kristine miller Performing Lab: see note SEE REPORT - [employer] Id information not found for OBX-specific supervising producer legend LC - [facility] LB Acid Fast Culture (Not yet r eviewed by provider) Interpretation: Performing Lab: Notes/Report: Comment right hallux [facility] , Acid Fast Culture See Below For Report Specimen has been received and testing has been initiated. Acid Fast Culture Acid Fast Culture Performed at: [facility] Specimen has been received and testing has been initiated. Acid Fast Culture Acid Fast Culture [address] [place], [place] [id number] Specimen has been received and testing has been initiated. Acid Fast Culture Acid Fast Culture Clinical Informatics Director: Phyllis Brian PhD, Phone: [phone] Specimen has been received and testing has been initiated. Acid Fast Culture Performing Lab: see note SEE REPORT - [employer] Id information not found for OBX-specific supervising producer legend LC - [facility] LB Acid Fast Smear (Not yet rev iewed by provider) Interpretation: Performing Lab: Notes/Report: Comment right hallux [facility] , Acid Fast Smear See Below For Report Acid Fast Smear Negative Performing Lab: see note LC - [facility] LB AFB Specimen Processing (Not yet reviewed by provider) Interpretation: Performing Lab: Notes/Report: Comment right hallux [facility] , AFB Specimen Processing See Below For Report AFB Specimen Processing AFB Specimen Processing Tissue Grinding AFB Specimen Processing Performing Lab: see note LC - [facility] LB XR ankle LT min 3V (Not yet reviewed by provider) Interpretation: Performing Lab: Notes/Report: Source Facility: [place] [address] [place] [address] XRay Report Signed Patient: RASHARD LYMAN MR#: [id number] : 1960 Acct:[id number] Age/Sex: 63 / M ADM Date: 01/21/24 Loc: Attending Dr: Chino Zambrano D.P.M. Ordering Physician: Chino Zambrano D.P.M. Date of Service: 01/21/24 Procedure(s): XR ankle LT min 3V Accession Number(s): [id number] cc: Chino Zambrano D.P.M.; GABRIEL JUAREZ D.O. The [place] [id number] Patient Name: RASHARD LYMAN MRN: [id number] date: 1960 Sex: M Assigned Patient Location: Current Patient Location: Accession/Order Number: [id number] Exam Date: 01/21/2024 13:21 Report Date: 01/23/2024 [...] M.D. Signed By: 01/23/2448 DD/ 4 TD/TT: Equipment Manager: [place] [address] XRay Report Signed Patient: MOIRA LYMAN ENRosibel MR#: [id number] : 1960 Acct:[id number] Age/Sex: 63 / M ADM Date: 01/21/24 Loc: Attending Dr: Chino Zambrano D.P.M. Ordering Physician: Chino Zambrano D.P.M. Date of Service: 01/21/24 Procedure(s): XR ank le LT min 3V Accession Number(s): [id number] cc: Chino Zambrano D.P.M.; GABRIEL JUAREZ D.O. The [place] [address] Patient Name: RASHARD LYMAN MRN: [id number] date: 1960 Sex: M Assigned Patient Location: Current Patient Location: Accession/Order Numb er: [id number] Exam Date: 01/21/2024 13:21 Report Date: 01/23/2024 [...] M.D. Signed By: 01/23/2448 DD/ 4 TD/TT: Equipment Manager: XR foot RT min 3V (Not yet r eviewed by provider) Interpretation: Performing Lab: Notes/Report: Source Facility: [facility]-[address] [place] [address] [place] [address] XRay Report Signed Patient: RASHARD LYMAN MR#: [id number] : 1960 Acct:[id number] Age/Sex: 64 / M ADM Date: 08/26/24 Loc: [place] 229-[address]: Ajay Vizcaino M.D. Ordering Physician: Chino Zambrano D.P.M. Date of Service: 08/28/24 Procedure(s): XR foot RT min 3V Accession Number(s): [id number] cc: Chino Zambrano D.P.M.; GABRIEL JUAREZ D.O. [address] [id number] Patient Name: RASHARD LYMAN MRN: [id number] date: 1960 Sex: M Assigned Patient Location: MS Current Patient Location: MS Accession/Order Number: [id number] Exam Date: 08/28/2024 11:46 Report Date: 08/28/2024 11:47 At the request of: CHINO ZAMBRANO DPM Procedure: XR foot RT min 3V RIGHT [...] ACUTE PROCESS. Impression dictated by: Clayton Cuevas Jr. DMigdalia 08/28/2024 11:47 AM Dictation Location: [place] [address] Electronically authenticated by: [id number] Y Date: 08/28/2024 11:47 Dictated By: Clayton Cuevas M.D. Signed By: 08/28/24 1150 DD/ 1147 TD/TT: Equipment Manager: [place] [address] XRay Report Signed Patient: MOIRA LYMAN MR#: [id number] : 1960 Acct:[id number] Age/Sex: 64 / M ADM Date: 08/26/24 Loc: MS 229-[address]: Ajay Vizcaino M.D. Ordering Physician: Chino Zambrano D.P.M. Date of Service: 08/28/24 Procedure(s): XR jeanette t RT min 3V Accession Number(s): [id number] cc: Chino Zambrano D.P.M.; GABRIEL JUAREZ D.O. The [place] [address] Patient Name: RASHARD LYMAN MRN: [id number] date: 1960 Sex: M Assigned Patient Location: MS Current Patient Location: MS Accession/Order Numb er: [id number] Exam Date: 08/28/2024 11:46 Report Date: 08/28/2024 11:47 At the request of: CHINO ZAMBRANO DPJuma Procedure: XR foot R T min 3V [...] Jr., D.O. 08/28/2024 11:47 AM Dictation Location: [place] [address] Electronically authenticated by: [id number] Y Date: 08/28/2024 11:47 Dictated By: Clayton Cuevas M.D. 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) Active confirmed Problem Contracture of joint of left ankle (disorder) (037994811484943) Contracture, left ankle (M24.572) Active confirmed Problem Hyperlipidemia (35270048) Hyperlipidemia (E78.5) Active confirmed Problem Venous insufficiency of leg (disorder) (061068905) Venous insufficiency (I87.2) Active confirmed Problem Chronic kidney disease (215603983) CKD (chronic kidney disease) (N18.9) Active confirmed Problem Chronic ulcer of foot (722090115) 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) Active confirmed Problem Acquired equinus deformity of left foot (M21.6X2) Active confirmed Problem Delayed healing of surgical wound (finding) (824861721) Delayed surgical wound healing, subsequent encounter (T81.89XD) Active confirmed Problem Delayed healing of surgical wound (finding) (963294427) Delayed surgical wound healing (T81.89XA) Active confirmed Problem Polyneuropathy due to type 2 diabetes mellitus (692157556) Diabetes mellitus with 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 (E11.42) Active confirmed Problem Foot ulcer due to type 2 diabetes mellitus (1348707177856) Diabetes mellitus with foot ulcer due to multiple causes (E11.621) Active confirmed Problem Chronic osteomyelitis of left ankle (9999902199642350 ) Chronic osteomyelitis of left ankle (M86.672) [...] ACCESS PPO PLUS LOCAL PLAN [address] [place] [address] [id number] Arabella Lyman Spouse - patient is the spouse of the insured 8 Medical (General) History Surgical History Surgery Date(Month/Year) Surgical / procedural histor y Carpal Tunnel release, Tonsillectomy, Adenoidectomy History of appendectomy History of cholecystectomy
--- OUTSIDE RECORDS SUMMARY | 2024-10-08 14:51 | XMS_ITS | Clinical Summary ---
Author Organization [facility] Healthcare Address [address] [place] [place] [address] Care Team Providers Care Cutter And Presser Name Role Phone Jose Baron MD Primary Care Provider [phone] Social History Tobacco Use Types Packs/Day Years [...] Not on file Insurance BS Care Teams Cutter And Presser Relationship Specialty Start Date End Date Jose Baron MD [address] [place] [address] PCP - General Internal Medicine 09/07/24
--- OUTSIDE RECORDS SUMMARY | 2024-10-08 14:51 | XMS_ITS | Encounter Summary ---
Author Organization [facility] Address [address] [place] [address] Care Team Providers Care Puffer Tender Name Role Phone Jose Baron MD Primary Care Provider [phone] Encounter Details Date Type Department Care Team (Late st Contact Info) Description 11/19/2023 Clinisync Result Encounter [facility] External Department Unsolicited Ajay Archer MD [address] [place] [address] Social History Tobacco Use Types Packs/Day Years [...] EDT Narrative 11/19/2023 5:27 PM EDT The [address] [address] Ultrasound Report Signed Patient: RASHARD LYMAN MR#: [id number] : 1960 Acct:[id number] Age/Sex: 63 / M ADM Date: 11/19/23 Loc: US Attending Dr: Ajay Archer M.D. Ordering Physician: Ajay Archer M.D. Date of Service: 11/19/23 Procedure(s): US venous doppler LE LT Accession Number(s): [id number] cc: Imer Zambrano D.P.M.; Ajay Archer M.D. [address] [address] Patient Name: RASHARD LYMAN MRN: [id number] date: 1960 Sex: M Assigned Patient Location: US Current Patient Location: US Accession/Order Number: [id number] Exam Date: 11/19/2023 16:06 Report Date: 11/19/2023 [...] M.D. Signed By: 11/19/231726 DD/ 23 TD/TT: Allied Health Instructor: Procedure Note Radiology, Radiologist, MD - 11/19/[address] [address] Ultrasound Report Signed Patient: RASHARD LYMANMR#: [id number] : 1960Acct:[id number] Age/Sex: 63 / MADM Date: 11/19/23 Loc: US Attending Dr: Ajay Archer M.D. Ordering Physician: Ajay Archer M.D. Date of Service: 11/19/23 Procedure(s): US venous doppler LE LT Accession Number(s): [id number] cc: Imer Zambrano D.P.M.; Ajay Archer M.D. [place] [id number] Patient Name: RASHARD LYMAN MRN: [id number] date: 1960 Sex: M Assigned Patient Location: US Current Patient Location: US Accession/Order Number: [id number] Exam Date: 11/19/2023 16:06 Report Date: 11/19/2023 [...] Venegas M.D. Signed By:11/19/231726 DD/ 23 TD/TT: Allied Health Instructor: Ajay Archer MD [facility] Final Result documented in this encounter Visit Diagnoses Not on filedocumented in this encounter Care Teams Puffer Tender Relationship Specialty Start Date End Date Jose Baron MD [facility] [place] [id number] PCP - General Internal Medicine 09/07/24 documented as of this encounter
--- OUTSIDE RECORDS SUMMARY | 2024-10-08 14:51 | XMS_ITS | Clinical Summary ---
Author Organization [facility] Address [address] [place] [address] Care Team Providers Care Plug Overwrap Machine Tender Name Role Phone Unavailable Primary Care Provider [...] 07/27/2020 10:31 AM EDT Plan of Treatment Health Maintenance Due Date Last Done Comments CT Colonography 1960 Colonoscopy 1960 Colorectal Cancer Screening 1960 FIT-DNA 1960 FIT 1960 FOBT 1960 Medicare Initial Physical (IPPE) 1960 Sigmoidoscopy 1960 Diabetes: Retinopathy Screening 02/04/1970 Depression Screening 1972 Diabetes: Urine Protein Screening 02/04/1979 Pneumococcal Vaccine: Pediat rics (0 to 5 Years) and At-Risk Patients (6 to 64 Years) (1 of 2 - PCV) 02/04/1979 Adult Tetanus 02/04/1982 Zoster Vaccines (1 of 2) 02/04/2010 Diabetes: Hemoglobin A1C 10/14/2020 07/14/2020 COVID-19 Vaccine (1 - 2023-2 5 season) 2023 Influenza Vaccine (Season Ended) 2024 HIB Vaccines Aged Out No longer eligi ble based on patient's age to complete this topic HPV Vaccines Aged Out No longer eligi ble based on patient's age to complete this topic IPV Vaccines Aged Out No longer eligi ble based on patient's age to complete this topic Meningococcal B Vaccine Aged Out No l onger eligible based on patient's age to complete this topic Meningococcal Vaccine Aged Out No babatunde yas eligible based on patient's age to complete this topic Rotavirus Vaccines Aged Out No longer eligible based on patient's age to complete this topic Procedures Procedure Name Priority Date/Time Associated Diagnosis [...] No: Do not add to previous draw Srini Castillo MD LAB BLOOD ORDERABLES Final Re sult LAB CONVERSIONS from Last 3 Months or Most Recently Relevant to Health Maintenance Insurance [facility]
== END 2024-10-08 14:49 | disposition home or self-care (01) ==
LOC: WC 14:48
PROVIDERS: PCP Internal Medicine; Visit Provider Physician Assistant
DX: E11.621 Type 2 diabetes mellitus with foot ulcer (principal); L97.515 Non-pressure chronic ulcer of other part of right foot with muscle involvement without evidence of necrosis; L97.425 Non-pressure chronic ulcer of left heel and midfoot with muscle involvement without evidence of necrosis
CPT/HCPCS: 11043

== ENCOUNTER 2024-10-21 15:23 | Outpatient (OUT) | payer BC, SELFPAY ==
--- OUTSIDE RECORDS SUMMARY | 2024-10-21 15:27 | XMS_ITS | Clinical Summary ---
Author Organization [employer] Address [id number] [address] [place] [address] Care Team Providers Care Jackaroo Name Role Phone Tod Charles DO, Charles [...] (05/28/2019): Added automatically from request for surgery [id number] Cellulitis of foot, left 09/29/2017 Other idiopathic [...] 02/10/2017 Medical Devices Not on file Insurance [facility] Advance Directives * Full Code (Latest Code Status on File) Date Activated Date Inactivated Comments 09/30/2017 12:06 PM 09/30/2017 8:03 PM Care Teams Jackaroo Relationship Specialty Start Date End Date Jose Baron Jr., [address] [place], [place] [phone] PCP - General Internal Medicine 02/10/17
--- OUTSIDE RECORDS SUMMARY | 2024-10-21 15:27 | XMS_ITS | Encounter Summary ---
[id number] [address] [place] [address] Care Team Providers Care Industrial Eng Name Role Phone Tod Charles DO, Charles L Primary Care Provider Encounter Details Date Type Department Care Team (Late st Contact Info) Description 07/14/2020 Documentation [facility] Physician Sign In [address] [place] [phone] Kishore Solorio MD [address] [place] [address] Social History Tobacco Use Types Packs/Day Years [...] documented as of this encounter Care Teams Industrial Eng Relationship Specialty Start Date End Date Jose Baron Jr., DO [address] [place] [address] PCP - General Internal Medicine 02/10/17 documented as of this encounter
--- OUTSIDE RECORDS SUMMARY | 2024-10-21 15:28 | XMS_ITS | Referral Summary ---
Author Organization [facility] Address [address] [place] [address] Care Team Providers Care Grain Scooper Name Role Phone Unavailable Primary Care Provider [...] Most Recently Relevant to Health Maintenance Insurance [facility]
--- OUTSIDE RECORDS SUMMARY | 2024-10-21 15:28 | XMS_ITS | Encounter Summary ---
Author Organization [facility] Address [address] [place] [address] Care Team Providers Care Job Superintendent Name Role Phone Jose Baron MD Primary Care Provider [phone] Encounter Details Date Type Department Care Team (Late st Contact Info) Description 11/19/2023 Clinisync Result Encounter [facility] External Department Unsolicited Ajay Archer MD [address] [place] [id number] Social History Tobacco Use Types Packs/Day Years [...] EDT Narrative 11/19/2023 5:27 PM EDT The [address] [address] Ultrasound Report Signed Patient: RASHARD LYMAN MR#: [id number] : 1960 Acct:[id number] Age/Sex: 63 / M ADM Date: 11/19/23 Loc: US Attending Dr: Ajay Archer M.D. Ordering Physician: Ajay Archer M.D. Date of Service: 11/19/23 Procedure(s): US venous doppler LE LT Accession Number(s): [id number] cc: Imer Zambrano D.P.M.; Ajay Archer M.D. [address] [address] Patient Name: RAHSARD LYMAN MRN: [id number] date: 1960 Sex: M Assigned Patient Location: US Current Patient Location: US Accession/Order Number: [id number] Exam Date: 11/19/2023 16:06 Report Date: 11/19/2023 [...] M.D. Signed By: 11/19/231726 DD/ 23 TD/TT: Contractor Broomcorn Threshing: Procedure Note Radiology, Radiologist, MD - 11/19/[address] [address] Ultrasound Report Signed Patient: RASHARD LYMANMR#: [id number] : 1960Acct:[id number] Age/Sex: 63 / MADM Date: 11/19/23 Loc: US Attending Dr: Ajay Archer M.D. Ordering Physician: Ajay Archer M.D. Date of Service: 11/19/23 Procedure(s): US venous doppler LE LT Accession Number(s): [id number] cc: Imer Zambrano D.P.M.; Ajay Archer M.D. [place] [id number] Patient Name: RASHARD LYMAN MRN: [id number] date: 1960 Sex: M Assigned Patient Location: US Current Patient Location: US Accession/Order Number: [id number] Exam Date: 11/19/2023 16:06 Report Date: 11/19/2023 [...] Venegas M.D. Signed By:11/19/231726 DD/ 23 TD/TT: Contractor [employer] Threshing: Ajay Archer MD [facility] Final Result documented in this encounter Visit Diagnoses Not on filedocumented in this encounter Care Teams Job Superintendent Relationship Specialty Start Date End Date Jose Baron MD [facility] [place] [id number] PCP - General Internal Medicine 09/07/24 documented as of this encounter
--- OUTSIDE RECORDS SUMMARY | 2024-10-21 15:28 | XMS_ITS | Clinical Summary ---
Author Organization [facility] Address [address] [place] [address] Care Team Providers Care Obedience Trainer Name Role Phone Unavailable Primary Care Provider [...] Most Recently Relevant to Health Maintenance Insurance [facility]
--- OUTSIDE RECORDS SUMMARY | 2024-10-21 15:28 | XMS_ITS | Clinical Summary ---
Author Organization [facility] Address [address] [place] [address] Care Team Providers Care Financial Aid Coordinator Name Role Phone Jose Baron MD Primary Care Provider [phone] Social History Tobacco Use Types Packs/Day Years [...] Not on file Insurance BS Care Teams Financial Aid Coordinator Relationship Specialty Start Date End Date Jose Baron MD [address] [place] [address] PCP - General Internal Medicine 09/07/24
--- OUTSIDE RECORDS SUMMARY | 2024-10-21 15:28 | XMS_ITS | Patient Health Record ---
Author Organization [facility] [place] Address [address] [place] [address] Care Team Providers Care Feeder Catcher Name Role Phone William SIGALA, [place] Primary Care Provider Obi Contreras [phone] Results Component Value Reference Range Notes CBC AUTO DIFF (Not yet revie wed by provider) Interpretation: Performing Lab: Notes/Report: [facility] , White Blood Count 11.3 4.0-11.0 10 [...] 3/uL Performing Lab: see note ML - [facility] CRP (Not yet reviewed by pro vider) Interpretation: Performing Lab: Notes/Report: [facility] , C Reactive Protein 1.75 <=0.50 mg/dL Performing Lab: see note - [facility] PROF CHEM 8 (BAS METB) (Not yet reviewed by provider) Interpretation: Performing Lab: Notes/Report: [facility] , Sodium 130 136-145 mmol/L Potassium 4.4 [...] 9.0 8.5-10.1 mg/dL Performing Lab: see note - [facility] Erythrocyte Sedimentation Ra te (Not yet reviewed by provider) Interpretation: Performing Lab: Notes/Report: [facility] , Erythrocyte Sedimentation Rate >130 <=20 mm/hr Performing Lab: see note ML - [facility] LB AFB Specimen Processing (Not yet reviewed [...] Fast Culture Acid Fast Culture Performed at: - [facility] [place] Specimen has been received and testing has been initiated. Acid Fast Culture Acid Fast Culture [address] [place], [place] [id number] Specimen has been received and testing has been initiated. Acid Fast Culture Acid Fast Culture Woodworking Bench Carpenter: Phyllis Brian PhD, Phone: [phone] Specimen has been received and testing has been initiated. Acid Fast Culture Performing Lab: see note SEE REPORT - Penetration Tester Id information not found for OBX-specific international editorial producer legend LC - [facility] LB XR foot RT min 3V (Not yet r eviewed by provider) Interpretation: Performing Lab: Notes/Report: Source Facility: [place] [address] XRay Report Signed Patient: RASHARD LYMAN MR#: [id number] : 1960 Acct:[id number] Age/Sex: 64 / M ADM Date: 08/26/24 Loc: [place] 229-[address]: Ajay Vizcaino M.D. Ordering Physician: Chino Zambrano D.P.M. Date of Service: 08/28/24 Procedure(s): XR foot RT min 3V Accession Number(s): [id number] cc: Chino Zambrano D.P.M.; GABRIEL JUAREZ D.O. The [place] [address] Patient Name: RASHARD LYMAN MRN: [id number] date: 1960 Sex: M Assigned Patient Location: MS Current Patient Location: MS Accession/Order Number: [id number] Exam Date: 08/28/2024 11:46 Report Date: 08/28/2024 11:47 At the request of: CIHNO ZAMBRANO DPJuma Procedure: XR foot RT min [...] Jr., D.O. 08/28/2024 11:47 AM Dictation Location: [place] [address] Electronically authenticated by: [id number] Y Date: 08/28/2024 11:47 Dictated By: Clayton Cuevas M.D. Signed By: 08/28/24 1150 DD/ 1147 TD/TT: Event Executive: [place] [address] XRay Report Signed Patient: MOIRA LYMAN MR#: [id number] : 1960 Acct:[id number] Age/Sex: 64 / M ADM Date: 08/26/24 Loc: MS 229-[address]: Ajay Vizcaino M.D. Ordering Physician: Chino Zambrano D.P.M. Date of Service: 08/28/24 Procedure(s): XR jeanette t RT min 3V Accession Number(s): [id number] cc: Chino Zambrano D.P.M.; GABRIEL JUAREZ D.O. [address] [address] Patient Name: RASHARD LYMAN MRN: [id number] date: 1960 Sex: M Assigned Patient Location: MS Current Patient Location: MS Accession/Order Numb er: [id number] Exam Date: 08/28/2024 11:46 Report Date: 08/28/2024 [...] Jr., D.O. 08/28/2024 11:47 AM Dictation Location: [place] [address] Electronically authenticated by: [id number] Y Date: 08/28/2024 11:47 Dictated By: Clayton Cuevas M.D. Signed By: 08/28/24 1150 DD/ 1147 TD/TT: Event Executive: Gram Stain Result (Not yet r eviewed by provider) Interpretation: Performing Lab: Notes/Report: [facility] , Gram Stain Result See Below For Report Gram Stain Result WILL FOLLOW Gram Stain Result Rare white blood cells. Gram Stain Result WILL FOLLOW Gram Stain Result Gram Stain Result WILL FOLLOW Gram Stain Result No organisms seen Gram Stain Result WILL FOLLOW Gram Stain Result Performed at: [facility] Gram Stain Result WILL FOLLOW Gram Stain Result [address] [place], [place] [id number] Gram Stain Result WILL FOLLOW Gram Stain Result Woodworking Bench Carpenter: Phyllis Brian PhD, Phone: [phone] Gram Stain Result WILL FOLLOW Performing Lab: see note SEE REPORT - Penetration Tester Id information not found for OBX-specific international editorial producer legend LC - [facility] LB Fungus (Mycology) Culture (N ot yet reviewed by provider) Interpretation: Performing Lab: Notes/Report: Comment right hallux [facility] , Fungus (Mycology) Culture See Below For Report Fungus (Mycology) Culture Please refer to the following specimen for additional lab results. Fungus (Mycology) Culture SEE: [phone] Fungus (Mycology) Culture Please refer to the following specimen for additional lab results. Performing Lab: see note SEE REPORT - Penetration Tester Id information not found for OBX-specific international editorial producer legend LC - [facility] LB Fungus Stain (Not yet review ed by provider) Interpretation: Performing Lab: Notes/Report: Comment right hallux [facility] , Fungus Stain See Below For Report Fungus Stain Fungus Stain Please refer to the following specimen for additional lab results. Fungus Stain Fungus Stain SEE: [phone] Fungus Kristine miller Performing Lab: see note SEE REPORT - Penetration Tester Id information not found for OBX-specific international editorial producer legend LC - [facility] LB MR ankle LT wo con (Not yet reviewed by provider) Interpretation: Performing Lab: Notes/Report: Source Facility: [place] [address] [place] [address] Magnetic Resonance Report Signed Patient: RASHARD LYMAN MR#: [id number] : 1960 Acct:[id number] Age/Sex: 63 / M ADM Date: 01/30/24 Loc: MRI Attending Dr: Chino Zambrano D.P.M. Ordering Physician: Chino Zambrano D.P.M. Date of Service: 01/30/24 Procedure(s): ankle LT wo con Accession Number(s): [id number] cc: Chino Zambrano D.P.M.; GABRIEL JUAREZ D.O. [place] [address] Patient Name: RASHARD LYMAN MRN: [id number] date: 1960 Sex: M Assigned Patient Location: MRI Current Patient Location: MRI Accession/Order Number: [id number] Exam Date: 01/30/2024 13:30 Report Date: 01/31/2024 [...] the proximal metatarsals. Electronically authenticated by: VALERIANO ALXEIS Date: 01/31/2024 17:09 Dictated By: Valeriano Alexis M.D. Signed By: 01/31/241710 DD/ 08 TD/TT: Event Executive: [place] [address] Magnetic Resonance Report Signed Patient: MOIRA LYMAN MR#: [id number] : 1960 Acct:[id number] Age/Sex: 63 / M ADM Date: 01/30/24 Loc: MRI Attending Dr: Chino Zambrano D.P.M. Ordering Physician: Chino Zambrano D.P.M. Date of Service: 01/30/24 Procedure(s): MR ank le LT wo con Accession Number(s): [id number] cc: Chino Zambrano D.P.M.; GABRIEL JUAREZ D.O. [place] [address] Patient Name: RASHARD LYMAN MRN: [id number] date: 1960 Sex: M Assigned Patient Location: MRI Current Patient Location: MRI Accession/Order [facility] er: [id number] Exam Date: 13:30 Report Date: 01/31/2024 17:09 At the request of: CHINO ZAMBRANO Procedure: MR ankle LT wo con EXAM: MR ankle LT wo con. HISTORY: Ulcer, hedis analyst vasiliy osteomyelitis. COMPARISON: 01/21/2024 TECHNIQUE: MRI image [...] M.D. Signed By: 01/31/241710 DD/ 08 TD/TT: Event Executive: XR ankle LT min 3V (Not yet reviewed by provider) Interpretation: Performing Lab: Notes/Report: Source Facility: [place] [address] XRay Report Signed Patient: RASHARD LYMAN MR#: [id number] : 1960 Acct:[id number] Age/Sex: 63 / M ADM Date: 01/21/24 Loc: Attending Dr: Chnio Zambrano D.P.M. Ordering Physician: Chino Zambrano D.P.M. Date of Service: 01/21/24 Procedure(s): XR ankle LT min 3V Accession Number(s): [id number] cc: Chino Zambrano D.P.M.; GABRIEL JUAREZ D.O. The [place] [address] Patient Name: RASHARD LYMAN MRN: [id number] date: 1960 Sex: M Assigned Patient Location: Current Patient Location: Accession/Order Number: [id number] Exam Date: 01/21/2024 13:21 Report Date: 01/23/2024 [...] M.D. Signed By: 01/23/24647 DD/ 4 TD/TT: Event Executive: [place] [address] XRay Report Signed Patient: MOIRA LYMAN MR#: [id number] : 1960 Acct:[id number] Age/Sex: 63 / M ADM Date: 01/21/24 Loc: Attending Dr: Chino Zambrano D.P.M. Ordering Physician: Chino Zambrano D.P.M. Date of Service: 01/21/24 Procedure(s): XR ank le LT min 3V Accession Number(s): [id number] cc: Chino Zambrano D.P.M.; GABRIEL JUAREZ D.O. The [place] [id number] Patient Name: RASHARD LYMAN MRN: [id number] date: 1960 Sex: M Assigned Patient Location: Current Patient Location: Accession/Order Numb er: [id number] Exam Date: 01/21/2024 13:21 Report Date: 01/23/2024 [...] Deshaun Cadet M.D. Signed By: 01/23/2448 DD/ TD/TT: Event Executive: Tissue Culture (Not yet revi ewed by provider) Interpretation: Performing Lab: Notes/Report: [facility] , Tissue Culture See Below For Report Tissue Culture Please refer to the following specimen for additional lab results. Tissue Culture SEE: [phone] Tissue Culture Please refer to the following specimen for additional lab results. 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) Active confirmed Problem Contracture of joint of left ankle (disorder) (440515739904331) Contracture, left ankle (M24.572) Active confirmed Problem Hyperlipidemia (58742829) Hyperlipidemia (E78.5) Active confirmed Problem Venous insufficiency of leg (disorder) (041870559) Venous insufficiency (I87.2) Active confirmed Problem Chronic kidney disease (033426233) CKD (chronic kidney disease) (N18.9) Active confirmed Problem Chronic ulcer of foot (914517074) 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) Active confirmed Problem Acquired equinus deformity of left foot (M21.6X2) Active confirmed Problem Delayed healing of surgical wound (finding) (286220606) Delayed surgical wound healing, subsequent encounter (T81.89XD) Active confirmed Problem Delayed healing of surgical wound (finding) (716964984) Delayed surgical wound healing (T81.89XA) Active confirmed Problem Polyneuropathy due to type 2 diabetes mellitus (792399015) Diabetes mellitus with 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 (E11.42) Active confirmed Problem Foot ulcer due to type 2 diabetes mellitus (6661020416984) Diabetes mellitus with foot ulcer due to multiple causes (E11.621) Active confirmed Problem Chronic osteomyelitis of left ankle (5989067083458006 ) Chronic osteomyelitis of left ankle (M86.672) [...] ACCESS PPO PLUS LOCAL PLAN [address] [place] [address] [id number] Arabella Lyman Spouse - patient is the spouse of the insured 8 Medical (General) History Surgical History Surgery Date(Month/Year) Surgical / procedural histor y Carpal Tunnel release, Tonsillectomy, Adenoidectomy History of appendectomy History of cholecystectomy
== END 2024-10-21 15:24 | disposition home or self-care (01) ==
LOC: WC 15:23
PROVIDERS: PCP Internal Medicine; Visit Provider Podiatrist Foot & Ankle Surgery
DX: E11.621 Type 2 diabetes mellitus with foot ulcer (principal); L97.515 Non-pressure chronic ulcer of other part of right foot with muscle involvement without evidence of necrosis; L97.425 Non-pressure chronic ulcer of left heel and midfoot with muscle involvement without evidence of necrosis; L97.513 Non-pressure chronic ulcer of other part of right foot with necrosis of muscle
CPT/HCPCS: 11043

== ENCOUNTER 2024-10-23 21:57 | Inpatient (IN) | payer BC, SELFPAY ==
[2024-10-23 22:01] VITALS: BP 176/86; PULSE 114; TEMP 37.3; O2SAT 98; BMI 30.7
--- OUTSIDE RECORDS SUMMARY | 2024-10-23 22:03 | XMS_ITS | Clinical Summary ---
Author Organization [employer] [facility] Address [id number] [address] [place] [address] Care Team Providers Care Arnp Name Role Phone Tod Charles DO, Charles [...] (05/28/2019): Added automatically from request for surgery [id number] Cellulitis of foot, left 09/29/2017 Other idiopathic [...] 02/10/2017 Medical Devices Not on file Insurance [facility] Advance Directives * Full Code (Latest Code Status on File) Date Activated Date Inactivated Comments 09/30/2017 12:06 PM 09/30/2017 8:03 PM Care Teams Arnp Relationship Specialty Start Date End Date Jose Baron Jr., [address] [place], [place] [phone] PCP - General Internal Medicine 02/10/17
--- OUTSIDE RECORDS SUMMARY | 2024-10-23 22:03 | XMS_ITS | Encounter Summary ---
Author Organization [facility] Address [address] [place] [address] Care Team Providers Care Salt Plant Operator Name Role Phone Jose Baron MD Primary Care Provider [phone] Encounter Details Date Type Department Care Team (Late st Contact Info) Description 11/19/2023 Clinisync Result Encounter [facility] External Department Unsolicited Ajay Archer MD [address] [place] [id number] Social History Tobacco Use Types Packs/Day Years [...] EDT Narrative 11/19/2023 5:27 PM EDT The [address] [address] Ultrasound Report Signed Patient: RASHARD LYMAN MR#: [id number] : 1960 Acct:[id number] Age/Sex: 63 / M ADM Date: 11/19/23 Loc: US Attending Dr: Ajay Archer M.D. Ordering Physician: Ajay Archer M.D. Date of Service: 11/19/23 Procedure(s): US venous doppler LE LT Accession Number(s): [id number] cc: Imer Zambrano D.P.M.; Ajay Archer M.D. [address] [address] Patient Name: RASHARD LYMAN MRN: [id number] date: 1960 Sex: M Assigned Patient Location: US Current Patient Location: US Accession/Order Number: [id number] Exam Date: 11/19/2023 16:06 Report Date: 11/19/2023 [...] M.D. Signed By: 11/19/231726 DD/ 23 TD/TT: Voice Coach: Procedure Note Radiology, Radiologist, MD - 11/19/[address] [address] Ultrasound Report Signed Patient: RASHARD LYMANMR#: [id number] : 1960Acct:[id number] Age/Sex: 63 / MADM Date: 11/19/23 Loc: US Attending Dr: Ajay Archer M.D. Ordering Physician: Ajay Archer M.D. Date of Service: 11/19/23 Procedure(s): US venous doppler LE LT Accession Number(s): [id number] cc: Imer Zambrano D.P.M.; Ajay Archer M.D. [place] [id number] Patient Name: RASHARD LYMAN MRN: [id number] date: 1960 Sex: M Assigned Patient Location: US Current Patient Location: US Accession/Order Number: [id number] Exam Date: 11/19/2023 16:06 Report Date: 11/19/2023 [...] Venegas M.D. Signed By:11/19/231726 DD/ 23 TD/TT: Voice Coach: Ajay Archer MD [facility] Final Result documented in this encounter Visit Diagnoses Not on filedocumented in this encounter Care Teams Salt Plant Operator Relationship Specialty Start Date End Date Jose Baron MD [facility] [place] [id number] PCP - General Internal Medicine 09/07/24 documented as of this encounter
--- OUTSIDE RECORDS SUMMARY | 2024-10-23 22:03 | XMS_ITS | Encounter Summary ---
Author Organization [facility] Address [facility] [place] [id number] [address] [place] [address] Care Team Providers Care First Coat Operator Name Role Phone Tod Charles DO, Charles L Primary Care Provider Encounter Details Date Type Department Care Team (Late st Contact Info) Description 07/14/2020 Documentation [facility] Phys[facility] Sign In [address] [place] [phone] Kishore Solorio MD [address] [place] [address] Social History Tobacco Use Types Packs/Day Years [...] documented as of this encounter Care Teams First Coat Operator Relationship Specialty Start Date End Date Jose Baron Jr., DO [address] [place] [address] PCP - General Internal Medicine 02/10/17 documented as of this encounter
--- OUTSIDE RECORDS SUMMARY | 2024-10-23 22:03 | XMS_ITS | Referral Summary ---
Author Organization [facility] Address [address] [place] [place] [address] Care Team Providers Care Story Writer Name Role Phone Unavailable Primary Care Provider [...] Most Recently Relevant to Health Maintenance Insurance [facility]
--- OUTSIDE RECORDS SUMMARY | 2024-10-23 22:03 | XMS_ITS | Clinical Summary ---
Author Organization [facility] Address [address] [place] [address] Care Team Providers Care Hand Box Folder Name Role Phone Unavailable Primary Care Provider [...] Most Recently Relevant to Health Maintenance Insurance [facility]
--- OUTSIDE RECORDS SUMMARY | 2024-10-23 22:03 | XMS_ITS | Patient Health Record ---
Author Organization [facility] in [place] Address [address] [place] [address] Care Team Providers Care Supervisor Parking Lot Name Role Phone William SIGALA, [place] Primary Care Provider Obi Contreras [phone] Results Component Value Reference Range Notes CRP (Not yet reviewed by pro vider) Interpretation: Performing Lab: Notes/Report: [facility] , C Reactive Protein 1.75 <=0.50 mg/dL Performing Lab: see note ML - [facility] LB PROF CHEM 8 (BAS METB) (Not yet reviewed by provider) Interpretation: Performing Lab: Notes/Report: [facility] , Sodium 130 136-145 mmol/L Potassium 4.4 3.5-5.1 mmol/L Chloride 98 98-107 mmol/L Carbon Dioxide 17.3 21.0-32.0 mmol/L Anion Gap 19.1 Glucose 378 74-106 mg/dL Blood Urea Nitrogen 61.0 7.0-18.0 mg/dL Creatinine 5.60 0.70-1.30 mg/dL RESULTS CALLED TO KATELYN CARBONE RN @BY Priscilla Contreras at 1401 Estimated GFR ( Camilla 13 >=60 mL/min/1.73m 2 Estimated GFR (Non- Em 10 >=60 mL/min/1.73m 2 BUN Creatinine Ratio 10.9 Calcium 9.0 8.5-10.1 mg/dL Performing Lab: see note ML - [facility] LB MR ankle LT wo con (Not yet reviewed by provider) Interpretation: Performing Lab: Notes/Report: Source Facility: [facility]-[address] [place] [address] [address] Magnetic Resonance Report Signed Patient: RASHARD LYMAN MR#: [id number] : 1960 Acct:[id number] Age/Sex: 63 / M ADM Date: 01/30/24 Loc: MRI Attending Dr: Chino Zambrano D.P.M. Ordering Physician: Chino Zambrano D.P.M. Date of Service: 01/30/24 Procedure(s): MR ankle LT wo con Accession Number(s): [id number] cc: Chino Zambrano D.P.M.; GABRIEL JUAREZ D.O. [place] [address] Patient Name: RASHARD LYMAN MRN: [id number] date: 1960 Sex: M Assigned Patient Location: MRI Current Patient Location: MRI Accession/Order Number: [id number] Exam Date: 01/30/2024 13:30 Report Date: 01/31/2024 [...] M.D. Signed By: 01/31/241710 DD/ 08 TD/TT: Air Dispatcher: [place] [address] Magnetic Resonance Report Signed Patient: MOIRA LYMAN MR#: [id number] : 1960 Acct:[id number] Age/Sex: 63 / M ADM Date: 01/30/24 Loc: MRI Attending Dr: Chino Zambrano D.P.M. Ordering Physician: Chino Zambrano D.P.M. Date of Service: 01/30/24 Procedure(s): ank le LT wo con Accession Number(s): [id number] cc: Chino Zambrano D.P.M.; GABRIEL JUAREZ D.O. [place] [address] Patient Name: RASHARD LYMAN MRN: [id number] date: 1960 Sex: M Assigned Patient Location: MRI Current Patient Location: MRI Accession/Order Numb er: [id number] Exam Date: 13:30 Report Date: 01/31/2024 17:09 At the request of: CHINO ZAMBRANO Procedure: MR ankle LT wo con EXAM: MR ankle LT wo con. 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 COMPARISON: 01/21/2024 TECHNIQUE: MRI image [...] M.D. Signed By: 01/31/241710 DD/ 08 TD/TT: Air Dispatcher: Tissue Culture (Not yet revi ewed by provider) Interpretation: Performing Lab: Notes/Report: [facility] , Tissue Culture See Below For Report Tissue Culture WILL FOLLOW O:BETAGB Isolated Tissue Culture Tissue Culture WILL FOLLOW O:BETAGB Isolated Tissue Culture Specimen has been received and testing has been initiated. Tissue Culture WILL FOLLOW O:BETAGB Isolated Tissue Culture Organism: Beta hemol ytic Strep group B : Tissue Culture WILL FOLLOW O:BETAGB Isolated Tissue Culture *ABNORMAL* Tissue Culture WILL FOLLOW O:BETAGB Isolated Tissue Culture Recovered from broth only. Tissue Culture WILL FOLLOW O:BETAGB Isolated Tissue Culture Penicillin and ampicillin are drugs of choice for Tissue Culture WILL FOLLOW O:BETAGB Isolated Tissue Culture treatment of beta-hemolytic streptococcal infections. Tissue Culture WILL FOLLOW O:BETAGB Isolated Tissue Culture Susceptibility testi ng of penicillins and other beta- Tissue Culture WILL FOLLOW O:BETAGB Isolated Tissue Culture lactam agents approv ed by the FDA for treatment of Tissue Culture WILL FOLLOW O:BETAGB Isolated Tissue Culture beta-hemolytic streptococcal infections need not be Tissue Culture WILL FOLLOW O:BETAGB Isolated Tissue Culture performed routinely because nonsusceptible isolates Tissue Culture WILL FOLLOW O:BETAGB Isolated Tissue Culture are extremely rare i n any beta-hemolytic streptococcus Tissue Culture WILL FOLLOW O:BETAGB Isolated Tissue Culture and have not been reported for Streptococcus pyogenes Tissue Culture WILL FOLLOW O:BETAGB Isolated Tissue Culture (group A). (CLSI) Tissue Culture WILL FOLLOW O:BETAGB Isolated Tissue Culture GAVE VERBAL TO KATHERYN Gomez Tissue Culture WILL FOLLOW O:BETAGB Isolated Tissue Culture Beta hemolytic Strep group B Tissue Culture WILL FOLLOW O:BETAGB Isolated Tissue Culture See Below For Report Tissue Culture WILL FOLLOW O:BETAGB Isolated Performing Lab: see note LC - [facility] LB XR foot RT min 3V (Not yet r eviewed by provider) Interpretation: Performing Lab: Notes/Report: Source Facility: [place] [address] [place] [address] XRay Report Signed Patient: RASHARD LYMAN MR#: [id number] : 1960 Acct:[id number] Age/Sex: 64 / M ADM Date: 08/26/24 Loc: MS 229-[address]: Ajay Vizcaino M.D. Ordering Physician: Chino Zambrano D.P.M. Date of Service: 08/28/24 Procedure(s): XR foot RT min 3V Accession Number(s): [id number] cc: Chino Zambrano D.P.M.; GABRIEL JUAREZ D.O. [place] [address] Patient Name: RASHARD LYMAN MRN: [id number] date: 1960 Sex: M Assigned Patient Location: ME Current Patient Location: ME Accession/Order Number: [id number] Exam Date: 08/28/2024 11:46 Report Date: 08/28/2024 [...] Jr., D.O. 08/28/2024 11:47 AM Dictation Location: [place] [address] Electronically authenticated by: [id number] Y Date: 08/28/2024 11:47 Dictated By: Clayton Cuevas M.D. Signed By: 08/28/24 1150 DD/ 1147 TD/TT: Air Dispatcher: [place] [address] XRay Report Signed Patient: MOIRA LYMAN MR#: [id number] : 1960 Acct:[id number] Age/Sex: 64 / M ADM Date: 08/26/24 Loc: MS 229-[address]: Ajay Vizcaino M.D. Ordering Physician: Chino Zambrano D.P.M. Date of Service: 08/28/24 Procedure(s): XR jeanette t RT min 3V Accession Number(s): [id number] cc: Chino Zambrano D.P.M.; GABRIEL JUAREZ D.O. [place] [address] Patient Name: RASHARD LYMAN MRN: [id number] date: 1960 Sex: M Assigned Patient Location: MS Current Patient Location: MS Accession/Order Numb er: [id number] Exam Date: 08/28/2024 11:46 Report Date: 08/28/2024 [...] PROCESS. Impression dictated by: Clayton Cuevas Jr., D.OVaishali 08/28/2024 11:47 AM Dictation Location: [place] [address] Electronically authenticated by: [id number] Y Date: 08/28/2024 11:47 Dictated By: Clayton Cuevas M.D. Signed By: 08/28/241149 DD/ 1147 TD/TT: Air Dispatcher: XR ankle LT min 3V (Not yet reviewed by provider) Interpretation: Performing Lab: Notes/Report: Source Facility: [place] [address] XRay Report Signed Patient: RASHARD LYMAN MR#: [id number] : 1960 Acct:[id number] Age/Sex: 63 / M ADM Date: 01/21/24 Loc: Attending Dr: Chino Zambrano D.P.M. Ordering Physician: Chino Zambrano D.P.M. Date of Service: 01/21/24 Procedure(s): XR ankle LT min 3V Accession Number(s): [id number] cc: Chino Zambrano D.P.M.; GABRIEL JUAREZ D.O. The [place] [address] Patient Name: RASHARD LYMAN MRN: [id number] date: 1960 Sex: M Assigned Patient Location: Current Patient Location: Accession/Order Number: [id number] Exam Date: 01/21/2024 13:21 Report Date: 01/23/2024 [...] M.D. Signed By: 01/23/2448 DD/ 4 TD/TT: Air Dispatcher: [place] [address] XRay Report Signed Patient: MOIRA LYMAN MR#: [id number] : 1960 Acct:[id number] Age/Sex: 63 / M ADM Date: 01/21/24 Loc: Attending Dr: Chino Zambrano D.P.M. Ordering Physician: Chino Zambrano D.P.M. Date of Service: 01/21/24 Procedure(s): XR ank le LT min 3V Accession Number(s): [id number] cc: Chino Zambrano D.P.M.; GABRIEL JUAREZ D.O. [place] [address] Patient Name: RASHARD LYMAN MRN: [id number] date: 1960 Sex: M Assigned Patient Location: Current Patient Location: Accession/Order Numb er: [id number] Exam Date: 01/21/2024 13:21 Report Date: 01/23/2024 [...] Cadet M.D. Signed By: 01/23/2448 DD/ TD/TT: Air Dispatcher: Erythrocyte Sedimentation Ra te (Not yet reviewed by provider) Interpretation: Performing Lab: Notes/Report: [facility] , Erythrocyte Sedimentation Rate >130 <=20 mm/hr Performing Lab: see note ML - [facility] LB CBC AUTO DIFF (Not yet revie wed by provider) Interpretation: Performing Lab: Notes/Report: [facility] , White Blood Count 11.3 [...] Performing Lab: see note ML - [facility] LB Tissue Culture (Not yet revi ewed by provider) Interpretation: Performing Lab: Notes/Report: [facility] , Tissue Culture See Below For Report Tissue Culture Please refer to the following specimen for additional lab results. Tissue Culture SEE: [phone] Tissue Culture Please refer to the following specimen for additional lab results. Performing Lab: see note - [facility] LB SEE REPORT - Solar Lab Technician Id information not found for OBX-specific blueprint reproducer legend Gram Stain Result (Not yet r eviewed by provider) Interpretation: Performing Lab: Notes/Report: [facility] , Gram Stain Result See Below For Report Gram Stain Result WILL FOLLOW Gram Stain Result Rare white blood cells. Gram Stain Result WILL FOLLOW Gram Stain Result Gram Stain Result WILL FOLLOW Gram Stain Result No organisms seen Gram Stain Result WILL FOLLOW Gram Stain Result Performed at: [facility] Gram Stain Result WILL FOLLOW Gram Stain Result [address] [place], [place] [id number] Gram Stain Result WILL FOLLOW Gram Stain Result Blowing Engineer: Phyllis Brian PhD, Phone: [phone] Gram Stain Result WILL FOLLOW Performing Lab: see note - [facility] LB SEE REPORT - Solar Lab Technician Id information not found for OBX-specific blueprint reproducer legend Fungus (Mycology) Culture (N ot yet reviewed by provider) Interpretation: Performing Lab: Notes/Report: Comment right hallux [facility] , Fungus (Mycology) Culture See Below For Report Fungus (Mycology) Culture Please refer to the following specimen for additional lab results. Fungus (Mycology) Culture SEE: [phone] Fungus (Mycology) Culture Please refer to the following specimen for additional lab results. Performing Lab: see note - [facility] LB SEE REPORT - Solar Lab Technician Id information not found for OBX-specific blueprint reproducer legend Fungus Stain (Not yet review ed by provider) Interpretation: Performing Lab: Notes/Report: Comment right hallux [facility] , Fungus Stain See Below For Report Fungus Stain Fungus Stain Please refer to the following specimen for additional lab results. Fungus Stain Fungus Stain SEE: [phone] Fungus Stain Performing Lab: see note - [facility] LB SEE REPORT - Solar Lab Technician Id information not found for OBX-specific blueprint reproducer legend Acid Fast Culture (Not yet r eviewed by provider) Interpretation: Performing Lab: Notes/Report: Comment right hallux [facility] , Acid Fast Culture See Below For Report Acid Fast Culture Specimen has been received and testing has been initiated. Acid Fast Culture Performed at: [facility] Acid Fast Culture Specimen has been received and testing has been initiated. Acid Fast Culture [address], [place] [id number] Acid Fast Culture Specimen has been received and testing has been initiated. Acid Fast Culture Blowing Engineer: Phyllis Brian PhD, Phone: [phone] Acid Fast Culture Specimen has been received and testing has been initiated. 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) Active confirmed Problem Contracture of joint of left ankle (disorder) (380679499031021) Contracture, left ankle (M24.572) Active confirmed Problem Hyperlipidemia (30537729) Hyperlipidemia (E78.5) Active confirmed Problem Venous insufficiency of leg (disorder) (238437850) Venous insufficiency (I87.2) Active confirmed Problem Chronic kidney disease (114388272) CKD (chronic kidney disease) (N18.9) Active confirmed Problem Chronic ulcer of foot (148540801) 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) Active confirmed Problem Acquired equinus deformity of left foot (M21.6X2) Active confirmed Problem Delayed healing of surgical wound (finding) (376419968) Delayed surgical wound healing, subsequent encounter (T81.89XD) Active confirmed Problem Delayed healing of surgical wound (finding) (602828523) Delayed surgical wound healing (T81.89XA) Active confirmed Problem Polyneuropathy due to type 2 diabetes mellitus (324143958) Diabetes mellitus with 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 (E11.42) Active confirmed Problem Foot ulcer due to type 2 diabetes mellitus (3752521650251) Diabetes mellitus with foot ulcer due to multiple causes (E11.621) Active confirmed Problem Chronic osteomyelitis of left ankle (1795154823341612 ) Chronic osteomyelitis of left ankle (M86.672) [...] ACCESS PPO PLUS LOCAL PLAN [address] [place] [address] [id number] Arabella Lyman Spouse - patient is the spouse of the insured 8 Medical (General) History Surgical History Surgery Date(Month/Year) History of cholecystectomy History of appendectomy Surgical / procedural histor y Carpal Tunnel release, Tonsillectomy, Adenoidectomy
--- OUTSIDE RECORDS SUMMARY | 2024-10-23 22:03 | XMS_ITS | Clinical Summary ---
Author Organization [facility] Address [address] [place] [address] Care Team Providers Care Loose Hand Packer Name Role Phone Jose Baron MD Primary Care Provider [phone] Social History Tobacco Use Types Packs/Day Years [...] Not on file Insurance BS Care Teams Loose Hand Packer Relationship Specialty Start Date End Date Jose Baron MD [address] [place] [address] PCP - General Internal Medicine 09/07/24
--- OUTSIDE RECORDS SUMMARY | 2024-10-23 22:05 | XMS_ITS | CCD ---
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 Name Role Phone Jose Juarez Primary Care Provider [phone] Eugene Morel Admit Provider Eugene Morel Attending Provider Gordon Ewing Attending Provider [phone] Patria Cheung Attending Provider [phone] SAVANNAH REYNOLDS Admitting Unavailable SAVANNAH REYNOLDS Attending Unavailable JOSE JUAREZ Primary Care Unavailable JOSE JUAREZ Referring Unavailable MI Procedure Practitioner Unavailab TRISHA Ozuna Surgeon Unavailable NIMA WYNNE Surgeon Unavailable MI Procedure Practitioner Unavailab Jose Andres Primary Care Provider Eugene Morel Admit Provider [phone] Gordon Ewing Attending Provider Patria Cheung Attending Provider Latrice Lehman Attending Provider PROVIDER, [...] WARNER Consulting Unavailable ALIREZA CONTRERAS Consulting Unavailable LARRY, DR RIOS Primary Care Unavailable CHINO ELLIOTT Consulting Unavailable CHINO ELLIOTT Attending Unavailable CHINO ELLIOTT Admitting Unavailable NEFCY, CHINO Vaughn Unavailable VALONE, DR RIOS Primary Care Unavailable VALONE, DR RIOS Consulting Unavailable VALONE, DR RIOS Admitting Unavailable VALONE, DR RIOS Attending Unavailable VALONE, DR RIOS Primary Care Unavailable VALONE, DR RIOS Admitting Unavailable VALONE, DR RIOS Attending Unavailable VALONE, DR RIOS Consulting Unavailable HIGHLANDER, CHINO Hopson Consulting Unavailable WILHELM, NATHANAEL Consulting Unavailable FAWWAD, MOSES H Admitting Unavailable FAWWAD, MOSES H Attending Unavailable VALONE, DR RIOS Primary Care Unavailable ZIEBER, DR PRISCA Tilley Consulting Unavailable HIGHLANDER, CHINO Hopson Consulting Unavailable AGUBOSIM, ALIREZA Consulting Unavailable FAWWAD, H Consulting Unavailable KERVIN ., VIDAL SAHNI Consulting Unavailable BURSIAN, YASMIN Consulting Unavailable HIGHLANDER, CHINO D Admitting Unavailable HIGHLANDER, CHINO Hopson Attending Unavailable HIGHLANDER, CHINO Hopson Consulting Unavailable VALONE, DR RIOS Primary Care Unavailable SU ., DR CARLOS EDUARDO Carmona Admitting Unavailable SU ., DR CARLOS EDUARDO Carmona Attending Unavailable VALONE, DR RIOS Primary Care Unavailable HERNANDEZ ., MARGIE Consulting Unavailable HIGHLANDER, CHINO Hopson Attending Unavailable VALONE, DR RIOS Primary Care Unavailable HIGHLANDER, CHINO Hopson Admitting Unavailable VALONE, DR RIOS Primary Care Unavailable HIGHLANDER, CHINO Hopson Attending Unavailable HIGHLANDER, CHINO Hopson Admitting Unavailable HIGHLANDER, CHINO Hopson Attending Unavailable VALONE, DR RIOS Primary Care Unavailable HIGHLANDER, CHINO Hopson Admitting Unavailable HIGHLANDER, CHINO Hopson Attending Unavailable VALONE, DR RIOS Primary Care Unavailable HIGHLANDER, CHINO Hopson Admitting Unavailable HIGHLANDER, CHINO Hopson Admitting Unavailable HIGHLANDER, CHINO Hopson Attending Unavailable VALONE, DR RIOS Primary Care Unavailable HIGHLANDER, CHINO Hopson Attending Unavailable HIGHLANDER, CHINO Hopson Admitting Unavailable VALONE, DR RIOS Primary Care Unavailable VALONE, DR RIOS Primary Care Unavailable HIGHLANDER, CHINO Hopson Attending Unavailable WEST, DR JAMESON Mckeon Consulting Unavailable HIGHLANDER, CHINO Hopson Admitting Unavailable HIGHLANDER, CHINO Hopson Consulting Unavailable VALONE, DR RIOS Primary Care Unavailable HIGHLANDER, CHINO Hopson Attending Unavailable HIGHLANDER, CHINO Hopson Admitting Unavailable VALONE, DR RIOS Primary Care Unavailable TRACY COE Attending Unavailable TRACY COE Admitting Unavailable VALONE, DR RIOS Primary Care Unavailable HIGHLANDER, CHINO Hopson Attending Unavailable HIGHLANDER, CHINO Hopson Admitting Unavailable VALONE, DR RIOS Primary Care Unavailable HIGHLANDER, CHINO Hopson Admitting Unavailable HIGHLANDER, CHINO Hopson Attending Unavailable VALONE, DR RIOS Primary Care Unavailable TRACY COE Attending Unavailable TRACY COE Admitting Unavailable VALONE, DR RIOS Primary Care Unavailable HIGHLANDER, CHINO Hopson Admitting Unavailable HIGHLANDER, PETER D Attending Unavailable VALONE, DR RIOS Primary Care Unavailable HIGHLANDER, CHINO D Admitting Unavailable HIGHLANDER, CHINO D Attending Unavailable VALONE, DR RIOS Primary Care Unavailable HIGHLANDER, CHINO D Admitting Unavailable HIGHLANDER, CHINO D Attending Unavailable VALONE, DR RIOS Primary Care Unavailable HIGHLANDER, PETER D Admitting Unavailable HIGHLANDER, PETER D Attending Unavailable VALONE, DR RIOS Primary Care Unavailable HIGHLANDER, PETER D Admitting Unavailable HIGHLANDER, CHINO D Attending Unavailable VALONE, DR RIOS Primary Care Unavailable HIGHLANDER, PETER D Attending Unavailable HIGHLANDER, PETER D Admitting Unavailable HIGHLANDER, PETER D Admitting Unavailable HIGHLANDER, PETER D Attending Unavailable VALONE, DR RIOS Primary Care Unavailable VALONE, DR RIOS Primary Care Unavailable HIGHLANDER, CHINO D Admitting Unavailable HIGHLANDER, PETER D Attending Unavailable HIGHLANDER, PETER D Admitting Unavailable HIGHLANDER, PETER D Attending Unavailable VALONE, DR RIOS Primary Care Unavailable HIGHLANDER, PETER D Attending Unavailable HIGHLANDER, PETER D Admitting Unavailable VALONE, DR RIOS Primary Care Unavailable HIGHLANDER, CHINO Hopson Attending Unavailable VALONE, DR RIOS Primary Care Unavailable HIGHLANDER, PETER D Admitting Unavailable HIGHLANDER, PETER D Attending Unavailable HIGHLANDER, PETER D Admitting Unavailable VALONE, DR RIOS Primary Care Unavailable HIGHLANDER, CHINO D Attending Unavailable HIGHLANDER, PETER D Admitting Unavailable VALONE, DR RIOS Primary Care Unavailable HIGHLANDER, CHINO Hopson Attending Unavailable HIGHLANDER, PETER D Admitting Unavailable VALONE, DR RIOS Primary Care Unavailable HIGHLANDER, CHINO Hopson Attending Unavailable VALONE, DR RIOS Primary Care Unavailable HIGHLANDER, CHINO D Admitting Unavailable VALONE, DR RIOS Primary Care Unavailable HIGHLANDER, CHINO Hopson Attending Unavailable ZIEBRISHABH, DR PRISCA Tilley Consulting Unavailable HIGHLANDER, CHINO Hopson Admitting Unavailable HIGHLANDER, CHINO Hopson Consulting Unavailable KERVIN ., VIDAL SAHNI Consulting Unavailable MICHAEL AGARWAL Consulting Unavailable HUNG GARCIA Consulting Unavailable SU ., DR CARLOS EDUARDO Carmona Attending Unavailable SU ., DR CARLOS EDUARDO Carmona Admitting Unavailable VALONE, DR RIOS Primary Care Unavailable VALONE, DR RIOS Consulting Unavailable MARY .MARGIE Consulting Unavailable HIGHLANDER, CHINO Hopson Consulting Unavailable HIGHLANDER, CHINO D Attending Unavailable VALONE, DR RIOS Primary Care Unavailable HIGHLANDER, PETER D Admitting Unavailable HIGHLANDER, PETER D Attending Unavailable VALKERMIT, DR RIOS Primary Care Unavailable EARL, CHINO Hopson Admitting Unavailable WEST, DR JAMESON Mckeon Consulting Unavailable JOSEANDER, CHINO Hopson Consulting Unavailable EARL, CHINO Hopson Admitting Unavailable HIGHLHERNESTO, CHINO Hopson Consulting Unavailable EARL, CHINO Hopson Attending Unavailable VALONE, DR RIOS Primary Care Unavailable NATHANAEL WILHELM Consulting Unavailable SU ., DR CARLOS EDUARDO Carmona Admitting Unavailable SU ., DR CARLOS EDUARDO Carmona Attending Unavailable HERNANDEZ ., MARGIE Consulting Unavailable VALONE, DR RIOS Primary Care Unavailable SU ., DR CARLOS EDUARDO Carmona Attending Unavailable SU ., DR CARLOS EDUARDO Carmona Admitting Unavailable HERNANDEZ ., MARGIE Consulting Unavailable VALONE, DR RIOS Primary Care Unavailable SU ., DR CARLOS EDUARDO Carmona Admitting Unavailable SU ., DR CARLOS EDUARDO Carmona Attending Unavailable VALONE, DR RIOS Primary Care Unavailable EARL, CHINO Hopson Attending Unavailable VALONE, DR RIOS Primary Care Unavailable EARL, CHINO Hopson Admitting Unavailable EARL, CHINO Hopson Referring Unavailable JUANCARLOS LEHMAN Primary Care Unavailable JUANCARLOS LEHMAN Primary Care Unavailable VALONE, JOSE L Referring Unavailable VALONE JR, JOSE L Referring Unavailable VALONE JR, JOSE L Primary Care Unavailable VALONE JR, JOSE L Referring Unavailable VALONE JR, JOSE Anmol Primary Care Unavailable VALONE JR, JOSE L [...] VALONE JR, JOSE L Primary Care Unavailable CHINO ELLIOTT Referring Unavailable VALONE JR, JOSE L Primary Care Unavailable VALONE JR, JOSE L Referring Unavailable VALONE JR, JOSE L Primary Care Unavailable VALONE JR, JOSE L Referring Unavailable VALONE JR, JOSE L Primary Care Unavailable VALONE JR, JOSE L Referring Unavailable VALONE JR, JOSE L Primary Care Unavailable Valone Jr., Jose MAE Primary Care Provider Chino Elliott DPM Attending Provider Chino Elliott Attending Unavailable Chino Elliott Admitting Unavailable Unavailable Unavailable Unavailable Allergies Allergy Classification Reported Allergen(s) Allergy Type Date of Onset Reaction(s) Facility exenatide (1 source) exenatide Drug Allergy 07-14-19 21 [facility] Repository NSAIDs (5 sources) celecoxib; Translations: [Celebrex] Drug Allergy 07-14-19 21 Difficulty Breathing [facility] Repository Phenolphthalein (1 source) Phenolphthalein Drug Allergy 07-14-19 21 [facility] Repository (6 sources) celecoxib; Translations: [celecoxib] Drug Allergy 07-21-19 17 Difficulty Breathing, bad for kidney, Difficulty Breathing, bad for kidney [facility] Repository (5 sources) Aspirin; Translations: [ASPIRIN] Drug Allergy 07-21-19 bad for kidney [facility] Repository (2 sources) Amoxicillin Drug Allergy 07-09-19 [facility] Repository (1 source) celecoxib Drug Allergy 07-09-19 20 [facility] Rep[facility] (1 source) exenatide Drug Allergy 07-09-19 20 [facility] Rep[facility] (1 source) Phenolphthalein Drug Allergy 07-09-19 [facility] Rep[facility] (3 sources) exenatide; Translations: [EXENATIDE] Drug Allergy 07-21-19 17 [facility] Repository (3 sources) HYLAN G-F 20; Translations: [HYLAN G-F 20] Propensity to adverse reactions to drug (disorder) 07-21-19 [facility] Repository (1 source) exenatide Drug Allergy 09-14-19 [facility] (1 source) OXcarbazepine Drug Allergy 09-14-19 23 [facility] Medications Current Medications Medication Drug Class(es) Dates Sig (Normalized) Sig (Original) Albuterol Sulfate (7 sources) beta2-Adrenergic Agonist Start: 12-31-2018 take 1 puff(s) by inhalation every six hours Albuterol Sulfate Active 2 PUFF Inhalation Q6H December 31, 2018 3:14pm Start: 09-30-2017 End: 11-08-2017 take 1 puff(s) by inhalation every six hours Albuterol Sulfate Discontinued 2 PUFF INHALATION Q6H September 30, 2017 6:15pm November 08, 2017 1:23pm Start: 09-30-2017 End: 11-08-2017 take 1 puff(s) by inhalation every six hours as needed Albuterol Sulfate 90 mcg/actuation Hfa Aerosol Inhaler Discontinued 2 PUFF INHALATION Q6H as needed for Shortness Of Breath September 30, 2017 12:00am November 08, 2017 1:23pm take 2 puff(s) by in halation every six hours as needed for wheezing albuterol (PROVENTIL HFA) 90 mcg/actuation inhaler Inhale 2 puffs every 6 (six) hours as needed for wheezing. Active amLODIPine 5 mg oral tablet (1 source) Dihydropyridine Calcium Channel Osman Start: 01-05-2019 take 10 mg by mouth once daily Amlodipine Active 10 MG Oral Daily January 05, 2019 2:10pm apremilast 30 mg oral tablet (5 sources) Start: 08-19-2020 take 1 tablet by mouth once daily Apremilast (Otezla) 30 mg Tablet Active 30 MG PO Daily August 19, 2020 10:59am atorvastatin 40 mg oral tablet (4 sources) HMG-CoA Reductase Inhibitor Start: 08-23-2020 take 40 mg by mouth once daily in the evening Atorvastatin Active 40 MG PO Every evening August 23, 2020 10:23am B Complex With C 20-Folic Acid (Renal Caps) 1 mg Capsule (5 sources) Start: 08-18-2020 take 1 capsule by mouth once daily B Complex With C 20-Folic Acid (Renal Caps) 1 mg Capsule Active 1 CAP PO Daily August 18, 2020 9:20pm Start: 08-18-2020 take 1 capsule by mo [facility] once daily B Complex With C 20-Folic Acid (Renal Caps) 1 mg Capsule Active 1 CAP PO Daily August 18, 2020 12:00am biotin 5 mg disintegrating oral tablet (2 sources) Start: 09-30-2017 take 5000 ug by mouth twice daily Biotin Active 5000 MCG Oral Twice daily September 30, 2017 6:18pm biotin 5,000 mcg tablet,disintegrating Dissolve 10,000 mcg on tongue 2 (two) times a day. Active 12 hr buPROPion hydrochloride 150 mg extended release oral tablet (7 sources) Aminoketone Start: 09-30-2017 take 150 mg by mouth once daily Bupropion Hcl Active 150 MG Oral Daily September 30, 2017 6:19pm Start: 09-30-2017 Bupropion Hcl (Wellbutrin Sr) 150 mg Tablet Extended Release 12 Hr Active 300 MG PO Daily September 30, 2017 6:19pm take 1 tablet by regan th every twelve hours in the morning buPROPion SR (WELLBUTRIN SR) 150 mg 12 hr tablet Take 1 tablet (150 mg total) by mouth in the morning. Active colesevelam hydrochloride 625 mg oral tablet (7 sources) Bile Acid Sequestrant Start: 09-30-2017 take 3 tablets by mouth three times daily at mealtime Colesevelam (Welchol) 625 mg Tablet Active 1875 MG PO THREE TIMES DAILY WITH MEALS September 30, 2017 6:42pm Start: 09-30-2017 take 1250 mg by mout h three times daily at mealtime Colesevelam Active 1250 MG Oral THREE TIMES DAILY WITH MEALS September 30, 2017 6:42pm Start: 09-30-2017 take 3 tablets by mo uth twice daily at mealtime Colesevelam (Welchol) 625 mg Tablet Active 1875 MG PO TWICE DAILY WITH MEALS September 30, 2017 6:42pm colesevelam (WEL CHOL) 625 mg tablet Take 650 mg by mouth Medrol Dose Pack scheduling ONLY. Active docusate sodium 100 mg oral tablet (7 sources) Start: 12-31-2018 take 100 mg by mouth twice daily Docusate Sodium Active 100 MG Oral Twice daily December 31, 2018 3:14pm Start: 09-30-2017 End: 11-08-2017 take 1 capsule by mouth twice daily Docusate Sodium (Colace) 100 mg Capsule Discontinued 100 MG PO Twice daily September 30, 2017 6:22pm November 08, 2017 1:27pm DULoxetine 60 mg delayed release oral capsule (11 sources) Serotonin and Norepinephrine Reuptake Inhibitor Start: 08-18-2020 take 1 capsule by mouth once daily Duloxetine (Cymbalta) 60 mg Capsule,Delayed Release(Dr/Ec) Active 60 MG PO Daily August 18, 2020 9:12pm Start: 09-30-2017 End: 12-31-2018 take 30 mg by mouth at bedtime Duloxetine Discontinued 30 MG PO Bedtime September 30, 2017 6:22pm December 31, 2018 3:08pm esomeprazole 40 mg delayed release oral capsule (5 sources) Proton Pump Inhibitor Start: 08-18-2020 take 40 mg by mouth once daily Esomeprazole Magnesium Active 40 MG PO Daily August 18, 2020 9:12pm famotidine 40 mg oral tablet (8 sources) Histamine-2 Receptor Antagonist Start: 08-18-2020 take 1 tablet by mouth twice daily Famotidine (Pepcid) 40 mg Tablet Active 40 MG PO Twice daily August 18, 2020 9:12pm Start: 09-30-2017 take 20 mg by mouth twice sohan y Famotidine Active 20 MG Oral Twice daily September 30, 2017 6:23pm ferrous sulfate 325 mg oral tablet (4 sources) Start: 08-25-2020 Ferrous Sulfat e Active 325 MG PO Every 48 hours August 25, 2020 12:30pm folic acid 1 mg oral tablet (2 sources) Start: 12-31-2018 take 1 mg by mouth once daily Folic Acid Active 1 MG Oral Daily December 31, 2018 3:14pm ALL DAYS EXCEPT SATURDAY furosemide 40 mg oral tablet (6 sources) Loop Diuretic Start: 08-25-2020 take 40 mg by mouth twice daily Furosemide Active 40 MG PO BID@0800,1600 60 August 25, 2020 12:28pm Start: 01-05-2019 take 40 mg by mouth once daily Furosemide Active 40 MG Oral Daily January 05, 2019 2:10pm hydrALAZINE hydrochloride 100 mg oral tablet (5 sources) Arteriolar Vasodilator Start: 08-18-2020 take 100 mg by mouth three times daily Hydralazine Active 100 MG PO Three times daily August 18, 2020 9:12pm 3 ml insulin degludec 100 unt/ml pen injector (17 sources) Insulin Analog Start: 11-08-2017 Insulin Deglud [...] insulin pen Discontinued 70 UNIT SUBCUT Daily October 04, 2017 1:09pm November 08, 2017 1:37pm Start: 09-30-2017 End: 10-04-2017 inject 200 [IU] by subcutaneous injection once daily Insulin Degludec (Tresiba Flextouch U-200) 200 unit/mL (3 mL) insulin pen Discontinued 200 UNIT SUBCUT Daily September 30, 2017 6:25pm October 04, 2017 12:34pm insulin degludec (TRESIBA FLEXTOUCH U-200) 200 unit/mL (3 mL) insulin pen Inject 100 Units under the skin in the morning. Active 3 ml insulin glargine 100 unt/ml / lixisenatide 0.033 mg/ml pen injector (13 sources) Insulin Analog Start: 12-31-2018 Insulin Glargi [...] Active magnesium oxide 400 mg oral tablet (5 sources) Start: 08-18-2020 take 400 mg by mouth once daily Magnesium Oxide Active 400 MG PO Daily August 18, 2020 9:12pm meclizine hydrochloride 25 mg chewable tablet (8 sources) Antiemetic Start: 09-30-2017 take 25 mg by mouth once daily Meclizine Active 25 MG Oral Daily September 30, 2017 6:30pm Start: 09-30-2017 take 25 mg by mouth every eight hours Meclizine Active 25 MG PO Every 8 hours September 30, 2017 6:30pm take 1 tablet by regan th every eight hours Meclizine HCl 25 MG 1 tablet as needed Orally three times a day Active methylPREDNISolone 4 mg oral tablet (4 sources) Corticosteroid Start: 08-23-2020 take 1 tablet [...] Oral Active montelukast 10 mg oral tablet (8 sources) Leukotriene Receptor Antagonist Start: 09-30-2017 take [...] 3 Active OXcarbazepine 300 mg oral tablet (8 sources) Anti-epileptic Agent Start: 09-30-2017 take 300 mg by mouth at bedtime Oxcarbazepine Active 300 MG PO Bedtime September 30, 2017 6:32pm POLYETHYLENE GLYCOL 3350 (1 source) Osmotic Laxative Miralax 17 gram s orally at hour of sleep Active potassium chloride 10 meq extended release oral tablet (9 sources) Start: 08-25-2020 Potassium Chloride (Klor-Con 10) 10 mEq Tablet Extended Release Active 10 MEQ PO Daily 30 August 25, 2020 12:28pm Start: 09-30-2017 End: 12-31-2018 Potassium Chloride Discontin ued 20 MEQ PO As Directed September 30, 2017 6:33pm December 31, 2018 3:13pm pregabalin 75 mg oral capsule (1 source) Start: 04-16-2019 take 1 capsule by mouth three times daily pregabalin (LYRICA) 75 mg capsule Indications: Diabetic peripheral neuropathy (CMS-HCC) Take 1 capsule (75 mg total) by mouth 3 (three) times a day. 90 capsule 1 04/16/2019 Active Renal Softgels (1 source) Renal Softgels Active sevelamer carbonate 800 mg oral tablet (11 sources) Phosphate Binder Start: 08-25-2020 take 800 mg by mouth once at mealtime Sevelamer Carbonate Active 800 MG PO 3x/Day with meals August 25, 2020 12:15pm Start: 09-30-2017 take 400 mg by mouth once sohan y Sevelamer Hcl Active 400 MG Oral Daily September 30, 2017 6:35pm Start: 09-30-2017 End: 08-19-2020 Sevelamer Hcl (Renagel) 800 mg Tablet Discontinued 400 MG PO Daily September 30, 2017 6:35pm August 19, 2020 11:03am take 1 tablet by regan th in the morning sevelamer (RENAGEL) 400 mg tablet Take 1 tablet (400 mg total) by mouth in the morning. Active tamsulosin hydrochloride 0.4 mg oral capsule (13 sources) alpha-Adrenergic Osman Start: 12-31-2018 take 1 capsule by mouth once daily Tamsulosin (Flomax) 0.4 mg Capsule Active 0.4 MG PO Daily December 31, 2018 3:14pm Start: 09-30-2017 End: 11-08-2017 take 1 capsule by mouth once daily Tamsulosin (Flomax) 0.4 mg Capsule,Extended Release 24hr Discontinued 0.4 MG PO Daily September 30, 2017 6:37pm November 08, 2017 1:33pm traZODone hydrochloride 50 mg oral tablet (8 sources) Serotonin Reuptake Inhibitor Start: 09-30-2017 take 50 mg by mouth at bedtime Trazodone Active 50 MG PO Bedtime September 30, 2017 6:43pm triamcinolone acetonide 1 mg/ml topical cream (7 sources) Corticosteroid Start: 12-31-2018 Triamcinolone Acetonide Active 1 APPLIC TOPICAL Twice daily December 31, 2018 3:14pm Start: 12-31-2018 Triamcinolone Acetonide 0.1 % Cream Active 1 APPLIC TOPICAL Twice daily December 31, 2018 12:00am Completed/Discontinued Medications Medication Drug Class(es) Dates Sig (Normalized) Sig (Original) acetaminophen 325 mg / HYDROcodone bitartrate 5 mg oral tablet (12 sources) Opioid Agonist Start: 12-31-2018 End: 01-05-2019 [...] / oxyCODONE hydrochloride 5 mg oral tablet (6 sources) Opioid Agonist Start: 11-12-2017 End: 12-31-2018 take 1 tablet by mouth every six hours as needed for pain Oxycodone-Acetaminophen (Percocet) 5-325 mg tablet Discontinued 1 TAB PO Q6H as needed for pain (scale score 7-10) 24 November 12, 2017 December 31, 2018 3:12pm take 1 tablet by regan th every eight hours as needed Percocet 5-325 MG 1 tablet as needed Orally EVERY 8 HRS NEEDED Active amoxicillin 500 mg / clavulanate 125 mg oral tablet (10 sources) Penicillin-class Antibacterial Start: 11-12-2017 End: 11-26-2017 [...] 30, 2017 6:45pm November 08, 2017 1:25pm B Complex With C 20-Folic Acid 1 mg capsule (1 source) Start: 09-30-2017 End: 11-08-2017 take 1 capsule by mouth once daily B Complex With C 20-Folic Acid 1 mg capsule Discontinued 1 CAP PO Daily September 30, 2017 12:00am November 08, 2017 1:25pm bumetanide 2 mg oral tablet (5 sources) Loop Diuretic Start: 09-30-2017 End: 12-31-2018 take 2 mg by mouth once daily Bumetanide Discontinued 2 MG PO Daily September 30, 2017 6:17pm December 31, 2018 3:05pm calcium acetate 667 mg oral capsule (7 sources) Start: 09-30-2017 End: 08-25-2020 take 667 mg by mouth three times daily at mealtime Calcium Acetate(Phosphat Bind) Discontinued 667 MG PO THREE TIMES DAILY WITH MEALS September 30, 2017 6:20pm August 25, 2020 12:34pm cholecalciferol 0.125 mg oral tablet (5 sources) Vitamin D Start: 08-18-2020 End: 08-25-2020 take 1 tablet by mouth once daily Cholecalciferol (Vitamin D3) (Vitamin D3) 125 mcg (5,000 unit) Tablet Discontinued 125 MCG PO Daily August 18, 2020 9:12pm August 25, 2020 12:34pm doxycycline hyclate 100 mg oral capsule (5 sources) Tetracycline-c lass Drug Start: 11-12-2017 End: 12-03-2017 take 100 mg by mouth twice daily Doxycycline Hyclate Discontinued 100 MG PO Twice daily November 12, 2017 2:59pm December 03, 2017 12:01am gabapentin 800 mg oral tablet (10 sources) Anti-epileptic Agent Start: 08-18-2020 End: 08-25-2020 take 800 mg by mouth twice daily Gabapentin Discontinued 800 MG PO Twice daily August 18, 2020 9:12pm August 25, 2020 12:34pm Start: 09-30-2017 End: 12-31-2018 take 600 mg by mouth twice daily Gabapentin Discontinued 600 MG PO Twice daily September 30, 2017 6:23pm December 31, 2018 3:10pm 3 ml insulin lispro 100 unt/ml pen injector (16 sources) Insulin Analog Start: 11-08-2017 End: 12-31-2018 [...] SCALE Active linaclotide 0.145 mg oral capsule (5 sources) Guanylate Cyclase-C Agonist Start: 09-30-2017 End: 11-08-2017 take 145 ug by mouth once daily Linaclotide Discontinued 145 MCG PO Daily September 30, 2017 6:29pm November 08, 2017 1:31pm losartan potassium 100 mg oral tablet (6 sources) Angiotensin 2 Receptor Osman Start: 12-31-2018 End: 01-05-2019 take 100 mg by mouth once daily Losartan Discontinued 100 MG PO Daily December 31, 2018 3:14pm January 05, 2019 2:16pm take 2 tablets by mouth in the m orning losartan (COZAAR) 50 mg tablet Take 2 tablets (100 mg total) by mouth in the morning. Active methotrexate 2.5 mg oral tablet (7 sources) Folate Analog Metabolic Inhibitor Start: 12-31-2018 End: 08-19-2020 take 10 mg by mouth every week Methotrexate Sodium Discontinued 10 MG PO every week December 31, 2018 3:14pm August 19, 2020 11:01am Saturday Start: 12-31-2018 End: 08-19-2020 take 4 tablets by mouth every week Methotrexate Sodium 2.5 mg Tablet Discontinued 10 MG PO every week December 31, 2018 12:00am August 19, 2020 11:01am Saturday take 1 tablet by regan th every week methotrexate 2.5 mg chemo tablet Take 1 tablet by mouth once a week Active metOLazone 10 mg oral tablet (5 sources) Thiazide-like Diuretic Start: 09-30-2017 End: 12-31-2018 take 10 mg by mouth twice daily Metolazone Discontinued 10 MG PO Twice daily September 30, 2017 6:31pm December 31, 2018 3:12pm rosuvastatin calcium 40 mg oral tablet (8 sources) HMG-CoA Reductase Inhibitor Start: 08-18-2020 take 10 mg by mouth once daily Rosuvastatin (Crestor) 40 mg Tablet Active 10 MG PO Daily August 18, 2020 9:12pm Start: 08-18-2020 End: 08-25-2020 Rosuvastatin (Crestor) 40 mg Tablet Discontinued 20 MG PO Daily August 18, 2020 9:12pm August 25, 2020 12:34pm Start: 09-30-2017 take 10 mg by mouth once daily Rosuvastatin Active 10 MG Oral Daily September 30, 2017 6:35pm sodium bicarbonate 325 mg oral tablet (7 sources) Start: 11-08-2017 take 325 mg by mouth once daily Sodium Bicarbonate Active 325 MG Oral Daily November 08, 2017 1:34pm Start: 11-08-2017 End: 08-25-2020 take 325 mg by mouth twice daily Sodium Bicarbonate Discontinued 325 MG PO Twice daily November 08, 2017 1:34pm August 25, 2020 12:34pm sulfamethoxazole 800 mg / trimethoprim 160 mg oral tablet (11 sources) Dihydrofolate Reductase Inhibitor Antibacterial, Sulfonamide Antimicrobial [...] 2017 12:33pm varenicline 1 mg oral tablet (6 sources) Partial Cholinergic Nicotinic Agonist Start: 09-30-2017 End: 01-05-2019 take 1 mg by mouth once daily Varenicline Discontinued 1 MG PO Daily September 30, 2017 6:38pm January 05, 2019 2:16pm vorapaxar 2.08 mg oral tablet (5 sources) Protease-activated Receptor-1 Antagonist Start: 09-30-2017 End: 11-08-2017 take 2.08 mg by mouth once daily Vorapaxar Discontinued 2.08 MG PO Daily September 30, 2017 6:38pm November 08, 2017 1:36pm Problems Active Problems Problem Classification Problem Date Documented Date Episodic/Chronic Acute and unspecified renal failure (5 sources) Acute kidney failure, unspecified; Translations: [Acute kidney failure, unspecified] Onset: 2 Episodic Bacterial infection; unspecified site (12 sources) Methicillin resistant Staphylococcus aureus infection; Translations: [Streptococcus agalactiae infection] 11-11-2017 Episodic Chronic kidney disease (20 sources) Chronic kidney disease stage 4; Translations: [Chronic kidney disease, stage 4 (severe)] Onset: 1 Resolved: 1 Chronic Chronic kidney disease (2 sources) Chronic kidney disease; Translations: [Chronic kidney disease, stage 3 unspecified] Onset: 4 Chronic obstructive pulmonary disease and bronchiectasis (11 sources) Chronic obstructive lung disease; Translations: [Chronic [...] Resolved: 1 Chronic Diabetes mellitus without complication (12 sources) Type 2 diabetes mellitus; Translations: [Diabetes mellitus] Onset: 3 09-30-2017 Chronic Diabetes mellitus without complication (2 sources) Hyperglycemia; Translations: [Hyperglycemia, unspecified] Episodic Disorders of lipid metabolism (4 sources) Hyperlipidemia; Translations: [Hyperlipidemia, unspecified] Onset: 1 Resolved: 1 Chronic Esophageal disorders (10 sources) Gastroesophageal reflux disease; Translations: [Gastro-esophageal reflux disease without esophagitis] Chronic Essential hypertension (10 sources) Hypertensive disorder; Translations: [Essential (primary) hypertension] Onset: 2 Chronic Fluid and electrolyte disorders (9 sources) Metabolic acidosis; Translations: [Acidosis] Episodic Gangrene (2 sources) Critical lower limb ischemia ; Translations: [Atherosclerosis of wales arteries of extremities with gangrene, left leg] Onset: 4 02-27-2024 Chronic Genitourinary symptoms and ill-defined conditions (2 sources) Dysuria; Translations: [Dysuria] Onset: 4 Episodic Hypertension with complications and secondary hypertension (12 sources) Chronic kidney disease due to hypertension; [...] [CONTRACTURE LEFT ANKLE] Onset: 3 Chronic Other bone disease and musculoskeletal deformities (1 source) Acquired absence of left foot; Translations: [ACQUIRED ABSENCE OF LEFT FOOT] Onset: 3 Chronic Other bone disease and musculoskeletal deformities (5 sources) History of amputation of right foot; Translations: [Acquired absence of other right toe(s)] 10-01-2017 Episodic Other bone disease and musculoskeletal deformities [...] PERIPH AUTONOM NEUROPATHY] Onset: 3 Chronic Other hereditary and degenerative nervous system conditions (1 source) Idiopathic peripheral autonomic neuropathy; Translations: [Other idiopathic peripheral autonomic neuropathy] Onset: 7 07-20-2016 Chronic Other inflammatory condition of skin (6 sources) Psoriasis; Translations: [Psoriasis, unspecified] 01-05-2019 Chronic Other inflammatory condition of skin (5 sources) Psoriasis, unspecified; Translations: [Other psoriasis] Onset: 3 Chronic Other inflammatory condition of skin (1 source) Other psoriasis; Translations: [OTHER PSORIASIS] Onset: 3 Chronic Other liver diseases (1 source) Liver disease, unspecified; Translations: [LIVER DISEASE UNSPECIFIED] Onset: 3 Chronic Other lower respiratory disease (4 sources) History of pleural effusion; Translations: [Personal history of other diseases of the respiratory system] 08-20-2020 Episodic Other lower respiratory disease (4 sources) Pleuritic pain; Translations: [Pleurodynia] 08-20-2020 Episodic Other lower respiratory disease (3 sources) Personal history of other diseases of the respiratory system; Translations: [Personal history of other diseases of respiratory system] Episodic Other lower respiratory disease (3 sources) Pleurodynia; Translations: [Painful respiration] Episodic Other nutritional; endocrine; and metabolic disorders (6 sources) Morbid obesity; Translations: [Morbid (severe) obesity due to excess calories] 09-30-2017 Chronic Other nutritional; endocrine; and metabolic disorders (5 sources) Morbid (severe) obesity due to excess calories; Translations: [Morbid obesity] Onset: 2 Chronic Kristin-; endo-; and myocarditis; cardiomyopathy (except that caused by tuberculosis or sexually transmitted disease) (7 sources) Pericarditis; Translations: [Disease of pericardium, unspecified] Episodic Peripheral and visceral atherosclerosis (11 sources) Peripheral vascular disease; Translations: [Peripheral vascular disease, unspecified] Onset: 3 Chronic Pleurisy; pneumothorax; pulmonary collapse (14 sources) Thickening of pleura; Translations: [Fibrothorax] Episodic Pneumonia (except that caused by tuberculosis or sexually transmitted disease) (2 sources) Pneumonia; Translations: [Pneumonia, unspecified organism] Episodic Spondylosis; intervertebral disc disorders; other back problems (7 sources) Spondylosis without myelopathy or radiculopathy, lumbar region; Translations: [Other intervertebral disc degeneration, lumbar region] Onset: 0 Chronic Substance-related disorders (1 source) Smoker; Translations: [...] elsewhere classified, left ankle] Onset: 01-05-2022 Episodic Deficiency and other anemia (1 source) Iron deficiency anemia, unspecified; Translations: [IRON DEFICIENCY ANEMIA UNSPECIFIED] Onset: 06-27-2022 Episodic Other aftercare (7 sources) Other technical sales support manager (current) drug therapy; Translations: [OTH PLATFORM SOFTWARE ENGINEER CURRENT DRUG THERAPY] Onset: 08-20-2022 Episodic Other aftercare (1 source) geoscience specialist (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; Translations: [PLATFORM SOFTWARE ENGINEER CURRENT USE OF INSULIN] Onset: 01-25-2022 Episodic Other circulatory disease (1 source) Critical lower limb ischemia 02-27-2024 Episodic Other connective tissue disease (1 source) [...] Onset: 03-27-2022 Episodic Other lower respiratory disease (5 sources) Shortness of breath; Translations: [SHORTNESS OF BREATH] Onset: 06-06-2022 Episodic Other lower respiratory disease (1 source) Other forms of dyspnea; Translations: [Other forms of dyspnea] Onset: 10-23-2023 Episodic Other screening for suspected conditions (not mental disorders or infectious disease) (1 source) Encounter for screening for malignant neoplasm of prostate; Translations: [Encounter for screening for malignant neoplasm of prostate] Onset: 10-23-2023 Episodic Other skin disorders (1 source) Nail [...] 01-05-2022 Episodic Skin and subcutaneous tissue infections (9 sources) Abscess of face; Translations: [Abscess of neck] Onset: 09-29-2017 09-29-2017 Episodic Spondylosis; intervertebral disc disorders; other back problems (4 sources) Muscle spasm of back; Translations: [MUSCLE SPASM OF BACK] Onset: 11-30-2021 Episodic Results Test Name Value Interpretation Reference Range Facility Pathology Request for Lab Co rpon 08-28-2024 Pathology Request for Lab [facility] Comment on above: Order Comment: RIGHT HALLUX Result Comment: See report. Scanned copy available in EMR. PERFORMED BY: [address] [address] PATHOLOGIST MOBILE BATTERY TECHNICIAN NIMA MCCLELLAN M.D. Performed By: #### P ATH TO [facility] #### [address] [address] [facility] BLOOD UREA NITROGENon 2023 Urea nitrogen [Mass/Vol] 40 mg/dL High 5-27 [facility] Comment on above: Performed By: #### E LEC, 3094-0, INDUSTRIAL MACHINE ASSEMBLER, 14379-2 #### [facility] ([id number]) [address] [place] [address] #### 84811-1, HA1C #### [facility] ([id number]) [address] [place] [address], [address] [place] [address] CBC AND AUTO DIFFon 02-17-20 ABSOLUTE BASOPHIL 0.0 X10E9/L Normal 0.0-0.2 [facility] Comment on above: Performed By: #### U A #### [facility] ([id number]) [address] [place] [address] ABSOLUTE NEUTROPHIL 5.2 X10E9/L Normal 1.5-6.6 [facility] Comment on above: Performed By: #### U A #### [facility] ([id number]) [address] [place] [address] Basophils/100 WBC (Bld) 0.6 % Normal [facility] Comment on above: Performed By: #### U A #### [facility] ([id number]) [address] [place] [address] Eosinophils (Bld) [#/Vol] 0.6 10*3/uL High 0.0-0.4 [facility] Comment on above: Performed By: #### U A #### [facility] ([id number]) [address] [place] [address] Eosinophils/100 WBC (Bld) 6.5 % Normal [facility] Comment on above: Performed By: #### U A #### [facility] ([id number]) [address] [place] [address], [place] [address] Erythrocyte distribution width (RBC) [Ratio] 14.2 % Normal 11.5-15.0 [facility] Comment on above: Performed By: #### U A #### [facility] ([id number]) [address] [place] [address] Hematocrit (Bld) [Volume fraction] 37.5 % Low 39-49 [facility] Comment on above: Performed By: #### U A #### [facility] ([id number]) [address] [place] [address] Hemoglobin (Bld) [Mass/Vol] 12.3 g/dL Low 13.0-17.0 [facility] Comment on above: Performed By: #### U A #### [facility] ([id number]) [address] [place] [address] Lymphocytes (Bld) [#/Vol] 1.9 10*3/uL Normal 1.0-3.5 [facility] Comment on above: Performed By: #### U A #### [facility] ([id number]) [address] [place] [address] Lymphocytes/100 WBC (Bld) 21.4 % Normal [facility] Comment on above: Performed By: #### U A #### [facility] ([id number]) [address] [place] [address] MCH (RBC) [Entitic mass] 29.3 pg Normal 27-34 [facility] Comment on above: Performed By: #### U A #### [facility] ([id number]) [address] [place] [address] MCHC (RBC) [Mass/Vol] 32.7 g/dL Normal 32-36 [facility] Comment on above: Performed By: #### U A #### [facility] ([id number]) [address] [place] [address] MCV (RBC) [Entitic vol] 90 fL Normal 80-100 [facility] Comment on above: Performed By: #### U A #### [facility] ([id number]) [address] [place] [address] Monocytes (Bld) [#/Vol] 1.1 10*3/uL High 0-0.9 [facility] Comment on above: Performed By: #### U A #### [facility] ([id number]) [address] [place] [address] Monocytes/100 WBC (Bld) 12.8 % Normal [facility] Comment on above: Performed By: #### U A #### [facility] ([id number]) [address] [place] [address] Neutrophils/100 WBC (Bld) 58.7 % Normal [facility] Comment on above: Performed By: #### U A #### [facility] ([id number]) [address] [place] [address] Platelet mean volume (Bld) [Entitic vol] 6.6 fL Low 7-12 [facility] Comment on above: Performed By: #### U A #### [facility] ([id number]) [address] [place] [address] Platelets (Bld) [#/Vol] 281 10*3/uL Normal 150-450 [facility] Comment on above: Performed By: #### U A #### [facility] ([id number]) [address] [place] [address] RBC COUNT 4.19 X10E12/L Normal 4.10-5.70 [facility] Comment on above: Performed By: #### U A #### [facility] ([id number]) [address] [place] [address] WBC (Bld) [#/Vol] 8.8 10*3/uL Normal 4.0-11.0 [facility] Comment on above: Performed By: #### U A #### [facility] ([id number]) [address] [place] [address] CREATININEon 02-17-2024 Creatinine [Mass/Vol] 3.74 mg/dL High 0.70-1.20 [facility] Comment on above: Result Comment: METH OD TRACEABLE TO IDMS STANDARD Performed By: #### E LEC, 3094-0, INDUSTRIAL MACHINE ASSEMBLER, 18942-6 #### [facility] ([id number]) [address] [place] [address] #### 16885-1, HA1C #### [facility] ([id number]) [address], [address] [place] [address] GFR/1.73 sq M.predicted among non-blacks MDRD (S/P/Bld) [Vol rate/Area] 17 mL/min/{1.73_m2} Low >59 [facility] Comment on above: Result Comment: Reported eGFR is based on the CKD-EPI 2020 equation that does not use a race coefficient. Performed By: #### E LEC, 3094-0, INDUSTRIAL MACHINE ASSEMBLER, 62866-4 #### [facility] ([id number]) [address] [place] [address] #### 87855-5, HA1C #### [facility] ([id number]) [address], [address] [place] [address] ELECTROLYTESon 02-17-2024 Anion gap [Moles/Vol] 8 mmol/L Normal 5-15 [facility] Comment on above: Performed By: #### E LEC, 3094-0, INDUSTRIAL MACHINE ASSEMBLER, 68809-7 #### [facility] ([id number]) [address] [place] [address] #### 73480-6, HA1C #### [facility] ([id number]) [address] [place] [address], [address] [place] [address] Chloride [Moles/Vol] 106 mmol/L Normal 98-109 [facility] Comment on above: Performed By: #### E LEC, 3094-0, INDUSTRIAL MACHINE ASSEMBLER, 12702-2 #### [facility] ([id number]) [address] [place] [address] #### 72996-8, HA1C #### [facility] ([id number]) [address] [place] [address], [address] [place] [address] CO2 [Moles/Vol] 21 mmol/L Low 22-32 [facility] Comment on above: Performed By: #### E LEC, 3094-0, INDUSTRIAL MACHINE ASSEMBLER, 22636-3 #### [facility] ([id number]) [address] [place] [address] #### 74110-8, HA1C #### [facility] ([id number]) [address] [place] [address], [address] [place] [address] Potassium [Moles/Vol] 5.2 mmol/L High 3.5-5.0 [facility] Comment on above: Performed By: #### E LEC, 3094-0, INDUSTRIAL MACHINE ASSEMBLER, 49112-5 #### [facility] ([id number]) [address] [place] [address] #### 56637-2, HA1C #### [facility] ([id number]) [address] [place] [address], [address] [place] [address] Sodium [Moles/Vol] 135 mmol/L Normal 134-146 [facility] Comment on above: Performed By: #### E LEC, 3094-0, INDUSTRIAL MACHINE ASSEMBLER, 10810-2 #### [facility] ([id number]) [address] [place] [address] #### 04382-9, HA1C #### [facility] ([id number]) [address], [address] [place] [address] BLOOD UREA NITROGENon 2023 Urea nitrogen [Mass/Vol] 50 mg/dL High 5-27 [facility] Comment on above: Performed By: #### U A #### [facility] ([id number]) [address] [place] [address] CALCIUMon 01-20-2024 Calcium [Mass/Vol] 8.7 mg/dL Normal 8.5-10.5 [facility] Comment on above: Performed By: #### B MP, CBCA, 1987-08, 84215-2 #### [facility] ([id number]) [address] [place] [address] #### 90408-8 #### [facility] ([id number]) [address] [facility], [address] [place] [address] CBC AND AUTO DIFFon 01-20-20 24 ABSOLUTE BASOPHIL 0.1 X10E9/L Normal 0.0-0.2 [facility] Comment on above: Performed By: #### B MP, CBCA, 1987-08, 67697-2 #### [facility] ([id number]) [address] [place] [address]65 #### 68246-3 #### [facility] ([id number]) [address] [facility], [address] [place] [address] ABSOLUTE NEUTROPHIL 6.0 X10E9/L Normal 1.5-6.6 [facility] Comment on above: Performed By: #### B MP, CBCA, 1987-08, 69754-3 #### [facility] ([id number]) [address] [place] [address]14 #### 73208-8 #### [facility] ([id number]) [address], [address] [place] [address] Basophils/100 WBC (Bld) 0.6 % Normal [facility] Comment on above: Performed By: #### B MP, CBCA, 1987-08, 39427-6 #### [facility] ([id number]) [address] [place] [address] 62086 #### 41675-9 #### [facility] ([id number]) [address] [facility], [address] [place] [address] Eosinophils (Bld) [#/Vol] 0.3 10*3/uL Normal 0.0-0.4 [facility] Comment on above: Performed By: #### Laura RONDON, CBCA, 1987-08, #### [facility] ([id number]) [address] [place] [address] 78853 #### 07540-3 #### [facility] ([id number]) [address] [facility], [address] [place] [address] Eosinophils/100 WBC (Bld) 3.1 % Normal [facility] Comment on above: Performed By: #### Laura RONDON, CBCA, 1987-08, #### [facility] ([id number]) [address] [place] [address] 82326 #### 85600-6 #### [facility] ([id number]) [address], [address] [place] [address] Erythrocyte distribution width (RBC) [Ratio] 13.5 % Normal 11.5-15.0 [facility] Comment on above: Performed By: #### Laura MP, CBCA, 1987-08, #### [facility] ([id number]) [address] [place] [address] 39665 #### 47594-6 #### [facility] ([id number]) [address], [address] [place] [address] Hematocrit (Bld) [Volume fraction] 36.1 % Low 39-49 [facility] Comment on above: Performed By: #### Laura RONDON, CBCA, 1987-08, 42470-7 #### [facility] ([id number]) [address] [place] [address] 27900 #### 65647-8 #### [facility] ([id number]) [address], [address] [place] [address] Hemoglobin (Bld) [Mass/Vol] 11.8 g/dL Low 13.0-17.0 [facility] Comment on above: Performed By: #### B ALCON, CBCA, 1987-08, 52772-9 #### [facility] ([id number]) [address] [place] [address] 20969 #### 49446-2 #### [facility] ([id number]) [address], [address] [place] [address] Lymphocytes (Bld) [#/Vol] 2.0 10*3/uL Normal 1.0-3.5 [facility] Comment on above: Performed By: #### B ALCON, CBCA, 1987-08, 21477-8 #### [facility] ([id number]) [address] [place] [address] 76146 #### 75848-6 #### [facility] ([id number]) [address], [address] [place] [address] Lymphocytes/100 WBC (Bld) 20.7 % Normal [facility] Comment on above: Performed By: #### B ALCON, CBCA, 1987-08, #### [facility] ([id number]) [address] [place] [address] 59559 #### 88199-0 #### [facility] ([id number]) [address] [place] [address], [address] [place] [address] MCH (RBC) [Entitic mass] 29.1 pg Normal 27-34 [facility] Comment on above: Performed By: #### B ALCON CBCA, 1987-08, 68500-5 #### [facility] ([id number]) [address] [place] [address] 63431 #### 59097-9 #### [facility] ([id number]) [address] [place] [address], [address] [place] [address] MCHC (RBC) [Mass/Vol] 32.8 g/dL Normal 32-36 [facility] Comment on above: Performed By: #### Laura RONDON CBCA, 1987-08, #### [facility] ([id number]) [address] [place] [address] 45084 #### 83243-2 #### [facility] ([id number]) [address] [place] [address], [address] [place] [address] MCV (RBC) [Entitic vol] 89 fL Normal 80-100 [facility] Comment on above: Performed By: #### Laura RONDON CBCA, 1987-08, #### [facility] ([id number]) [address] [place] [address] 24204 #### 91707-9 #### [facility] ([id number]) [address] [place] [address], [address] [place] [address] Monocytes (Bld) [#/Vol] 1.2 10*3/uL High 0-0.9 [facility] Comment on above: Performed By: #### Laura RONDON CBCA, 1987-08, 31426-5 #### [facility] ([id number]) [address] [place] [address] 13959 #### 78040-0 #### [facility] ([id number]) [address] [facility], [address] [place] [address] Monocytes/100 WBC (Bld) 12.3 % Normal [facility] Comment on above: Performed By: #### Laura MP, CBCA, 1987-08, 03210-6 #### [facility] ([id number]) [address] [place] [address] 18904 #### 70466-9 #### [facility] ([id number]) [address] [place] [address], [address] [place] [address] Neutrophils/100 WBC (Bld) 63.3 % Normal [facility] Comment on above: Performed By: #### B ALCON, CBCA, 1987-08, 06558-6 #### [facility] ([id number]) [address] [place] [address] #### 39193-5 #### [facility] ([id number]) [address] [place] [address], [address] [place] [address] Platelet mean volume (Bld) [Entitic vol] 7.7 fL Normal 7-12 [facility] Comment on above: Performed By: #### Laura MP, CBCA, 1987-08, 88221-4 #### [facility] ([id number]) [address] [place] [address] 59467 #### 45320-9 #### [facility] ([id number]) [address] [facility], [address] [place] [address] Platelets (Bld) [#/Vol] 264 10*3/uL Normal 150-450 [facility] Comment on above: Performed By: #### B MP, CBCA, 1987-08, 30336-0 #### [facility] ([id number]) [address] [place] [address] 19947 #### 70515-3 #### [facility] ([id number]) [address] [facility], [address] [place] [address] RBC COUNT 4.07 X10E12/L Low 4.10-5.70 [facility] Comment on above: Performed By: #### B ALCON CBCA, 1987-08, 21738-4 #### [facility] ([id number]) [address] [place] [address]1974 #### 97468-8 #### [facility] ([id number]) [address] [facility], [address] [address] WBC (Bld) [#/Vol] 9.4 10*3/uL Normal 4.0-11.0 [facility] Comment on above: Performed By: #### B ALCON, CBCA, 1987-08, 90318-3 #### [facility] ([id number]) [address] [place] [address] 45163 #### 91728-8 #### [facility] ([id number]) [address] [facility], [address] [place] [address] CREATININEon 01-20-2024 Creatinine [Mass/Vol] 3.14 mg/dL High 0.70-1.20 [facility] Comment on above: Result Comment: METH OD TRACEABLE TO IDMS STANDARD Performed By: #### U A #### [facility] ([id number]) [address] [place] [address] GFR/1.73 sq M.predicted among non-blacks MDRD (S/P/Bld) [Vol rate/Area] 21 mL/min/{1.73_m2} Low >59 [facility] Comment on above: Result Comment: Reported eGFR is based on the CKD-EPI 2020 equation that does not use a race coefficient. Performed By: #### U A #### [facility] ([id number]) [address] [place] [address] [place] [address] ELECTROLYTESon 01-20-2024 Anion gap [Moles/Vol] 8 mmol/L Normal 5-15 [facility] Comment on above: Performed By: #### U A #### [facility] ([id number]) [address] [place] [address] Chloride [Moles/Vol] 104 mmol/L Normal 98-109 [facility] Comment on above: Performed By: #### U A #### [facility] ([id number]) [address] [place] [address] CO2 [Moles/Vol] 19 mmol/L Low 22-32 [facility] Comment on above: Performed By: #### U A #### [facility] ([id number]) [address] [place] [address] 98389 Potassium [Moles/Vol] 4.9 mmol/L Normal 3.5-5.0 [facility] Comment on above: Performed By: #### U A #### [facility] ([id number]) [address] [place] [address] 51616 Sodium [Moles/Vol] 131 mmol/L Low 134-146 [facility] Comment on above: Performed By: #### U A #### [facility] ([id number]) [address] [place] [address] 74396 ESR Photometric method (Bld) [Velocity]on 01-20-2024 ESR, ERYTHROCYTE SEDIMENTATION RATE 98 mm/h High 0-20 [facility] Comment on above: Performed By: #### U A #### [facility] ([id number]) [address] [place] [address] [place] [address] HGB A1C (GLYCO-HGB)on 2023 Glucose [Mass/Vol] 289 mg/dL Normal [facility] Comment on above: Performed By: #### U A #### [facility] ([id number]) [address] [place] [address] 24453 HbA1c (Bld) [Mass fraction] 11.7 % High 4.4-5.6 [facility] Comment on above: Result Comment: NOTE ADA Guidelines Result HgbA1c Normal : less than 5.7 % Prediabetes : 5.7 % to 6.4 % Diabetes : > 6.4 % Use with caution in patients with abnormal hemoglobin variants as the half-life of red blood cells and in vivo glycation rates are affected. Performed By: #### U A #### [facility] ([id number]) [address] [place] [address] 54330 LIVER PANELon 01-20-2024 Albumin [Mass/Vol] 2.9 g/dL Low 3.2-5.3 [facility] Comment on above: Performed By: #### U A #### [facility] ([id number]) [address] [place] [address] 94557 ALP [Catalytic activity/Vol] 79 U/L Normal 39-130 [facility] Comment on above: Performed By: #### U A #### [facility] ([id number]) [address] [place] [address] 03305 ALT [Catalytic activity/Vol] 26 U/L Normal 0-40 [facility] Comment on above: Performed By: #### U A #### [facility] ([id number]) [address] [place] [address] 80080 AST [Catalytic activity/Vol] 19 U/L Normal 0-41 [facility] Comment on above: Performed By: #### U A #### [facility] ([id number]) [address] [place] [address] 33302 Bilirubin [Mass/Vol] 0.5 mg/dL Normal 0.3-1.2 [facility] Comment on above: Performed By: #### U A #### [facility] ([id number]) [address] [place] [address] 19941 Bilirubin.indirect [Mass/Vol] mg/dL Normal 0.0-0.4 [facility] Comment on above: Performed By: #### U A #### [facility] ([id number]) [address] [place] [address] 30244 Protein [Mass/Vol] 6.9 g/dL Normal 6.0-8.0 [facility] Comment on above: Performed By: #### U A #### [facility] ([id number]) [address] [place] [address] 18714 Lipid 1996 panelon 4 Cholesterol [Mass/Vol] 136 mg/dL Low 150-200 [facility] Comment on above: Performed By: #### U A #### [facility] ([id number]) [address] [place] [address] 87363 Cholesterol in HDL [Mass/Vol] 40 mg/dL Normal >39 [facility] Comment on above: Result Comment: HDL <40 mg/dL - High Risk HDL > or = 40mg/dL- Desirable HDL >60 mg/dL - Negative Risk Performed By: #### U A #### [facility] ([id number]) [address] [place] [address] 98368 Cholesterol in LDL [Mass/Vol] 62 mg/dL Normal <130 [facility] Comment on above: Result Comment: LDL <100 mg/dL - Desirable LDL >160 mg/dL - High Risk Performed By: #### U A #### [facility] ([id number]) [address] [place] [address], [place] [address] Cholesterol in VLDL [Mass/Vol] 34 mg/dL High 0-30 [facility] Comment on above: Performed By: #### U A #### [facility] ([id number]) [address] [place] [address], [place] [address] CHOLESTEROL:HDL 3.4 Normal 1.0-5.0 [facility] Comment on above: Performed By: #### U A #### [facility] ([id number]) [address] [place] [address] 74319 Triglyceride [Mass/Vol] 172 mg/dL High 27-150 [facility] Comment on above: Performed By: #### U A #### [facility] ([id number]) [address] [place] [address], [place] [address] Natriuretic peptide B [Mass/ Vol]on 01-20-2024 Natriuretic peptide B (Bld) [Mass/Vol] 88 pg/mL Normal <100.0 [facility] Comment on above: Performed By: #### U A #### [facility] ([id number]) [address] [place] [address], [place] [address] Vitamin D+Metabolites [Mass/ Vol]on 01-20-2024 VITAMIN D 25 HYD TOT 15.1 ng/mL Low 30-100 [facility] Comment on above: Result Comment: Vitamin D status 25 [place] Vitamin D Deficiency <20 ng/mL Insufficiency 20-29 ng/mL Sufficiency 30-100 ng/mL Toxicity >100 ng/mL NOTE: A pediatric reference range has not been established by the reptile farmer of this kit. The [place] [employer] recommends a Vitamin D level of = or >20ng/mL in infants and children. Performed By: #### U A #### [facility] ([id number]) [address] [place] [address] 20403 BLOOD UREA NITROGENon 2023 Urea nitrogen [Mass/Vol] 50 mg/dL High 5-27 [facility] Comment on above: Performed By: #### B MP, CBCA, 1987-08, 89718-5 #### [facility] ([id number]) [address] [place] [address] 00978 #### 26026-7 #### [facility] ([id number]) [address], [address] [place] [address] CBC AND AUTO DIFFon 12-16-19 24 ABSOLUTE BASOPHIL 0.0 X10E9/L Normal 0.0-0.2 [facility] Comment on above: Performed By: #### B MP, CBCA, 1987-08, 59577-9 #### [facility] ([id number]) [address] [place] [address] 03040 #### 54423-8 #### [facility] ([id number]) [address], [address] [place] [address] ABSOLUTE NEUTROPHIL 5.7 X10E9/L Normal 1.5-6.6 [facility] Comment on above: Performed By: #### B MP, CBCA, 1987-08, 36220-5 #### [facility] ([id number]) [address] [place] [address] 15347 #### 40027-3 #### [facility] ([id number]) [address], [address] [place] [address] Basophils/100 WBC (Bld) 0.4 % Normal [facility] Comment on above: Performed By: #### B MP, CBCA, 1987-08, 22481-0 #### [facility] ([id number]) [address] [place] [address] 24713 #### 21905-3 #### [facility] ([id number]) [address], [address] [place] [address] Eosinophils (Bld) [#/Vol] 0.4 10*3/uL Normal 0.0-0.4 [facility] Comment on above: Performed By: #### B MP, CBCA, 1987-08, 39621-7 #### [facility] ([id number]) [address] [place] [address] 67884 #### 17533-1 #### [facility] ([id number]) [address], [address] [place] [address] Eosinophils/100 WBC (Bld) 4.8 % Normal [facility] Comment on above: Performed By: #### B MP, CBCA, 1987-08, 88900-8 #### [facility] ([id number]) [address] [place] [address] 26426 #### 49489-1 #### [facility] ([id number]) [address], [address] [place] [address] Erythrocyte distribution width (RBC) [Ratio] 14.7 % Normal 11.5-15.0 [facility] Comment on above: Performed By: #### B MP, CBCA, 1987-08, 60550-8 #### [facility] ([id number]) [address] [place] [address] 51872 #### 58497-9 #### [facility] ([id number]) [address], [address] [place] [address] Hematocrit (Bld) [Volume fraction] 39.0 % Normal 39-49 [facility] Comment on above: Performed By: #### B ALCON, CBCA, 1987-08, 01910-2 #### [facility] ([id number]) [address] [place] [address] 52508 #### 04240-2 #### [facility] ([id number]) [address], [address] [place] [address] Hemoglobin (Bld) [Mass/Vol] 13.3 g/dL Normal 13.0-17.0 [facility] Comment on above: Performed By: #### B ALCON, CBCA, 1987-08, 70933-7 #### [facility] ([id number]) [address] [place] [address] 41532 #### 26928-1 #### [facility] ([id number]) [address], [address] [place] [address] Lymphocytes (Bld) [#/Vol] 1.7 10*3/uL Normal 1.0-3.5 [facility] Comment on above: Performed By: #### Laura RONDON, CBCA, 1987-08, #### [facility] ([id number]) [address] [place] [address] 15821 #### 99732-2 #### [facility] ([id number]) [address], [address] [place] [address] Lymphocytes/100 WBC (Bld) 19.3 % Normal [facility] Comment on above: Performed By: #### Laura RONDON, CBCA, 1987-08, 43137-7 #### [facility] ([id number]) [address] [place] [address] 73358 #### 02227-0 #### [facility] ([id number]) [address], [address] [place] [address] MCH (RBC) [Entitic mass] 29.8 pg Normal 27-34 [facility] Comment on above: Performed By: #### B ALCON CBCA, 1987-08, 11479-0 #### [facility] ([id number]) [address] [place] [address] 61324 #### 38316-9 #### [facility] ([id number]) [address] [facility], [address] [place] [address] MCHC (RBC) [Mass/Vol] 34.0 g/dL Normal 32-36 [facility] Comment on above: Performed By: #### B ALCON CBCA, 1987-08, 01132-3 #### [facility] ([id number]) [address] [place] [address] 80681 #### 13956-0 #### [facility] ([id number]) [address] [facility], [address] [place] [address] MCV (RBC) [Entitic vol] 88 fL Normal 80-100 [facility] Comment on above: Performed By: #### Laura RONDON CBCA, 1987-08, 99826-2 #### [facility] ([id number]) [address] [place] [address] 06703 #### 36997-3 #### [facility] ([id number]) [address] [facility], [address] [place] [address] Monocytes (Bld) [#/Vol] 0.8 10*3/uL Normal 0-0.9 [facility] Comment on above: Performed By: #### Laura RONDON CBCA, 1987-08, 96086-8 #### [facility] ([id number]) [address] [place] [address] 55395 #### 23057-4 #### [facility] ([id number]) [address] [facility], [address] [place] [address] Monocytes/100 WBC (Bld) 8.8 % Normal [facility] Comment on above: Performed By: #### B ALCON, CBCA, 1987-08, 44244-6 #### [facility] ([id number]) [address] [place] [address] 50462 #### 38993-4 #### [facility] ([id number]) [address] [facility], [address] [place] [address] Neutrophils/100 WBC (Bld) 66.7 % Normal [facility] Comment on above: Performed By: #### B ALCON, CBCA, 1987-08, 74457-9 #### [facility] ([id number]) [address] [place] [address] 46104 #### 72116-1 #### [facility] ([id number]) [address] [facility], [address] [place] [address] Platelet mean volume (Bld) [Entitic vol] 7.7 fL Normal 7-12 [facility] Comment on above: Performed By: #### Laura RONDON, CBCA, 1987-08, 80785-8 #### [facility] ([id number]) [address] [place] [address] 97072 #### 53052-4 #### [facility] ([id number]) [address] [facility], [address] [place] [address] Platelets (Bld) [#/Vol] 286 10*3/uL Normal 150-450 [facility] Comment on above: Performed By: #### B ALCON, CBCA, 1987-08, 89903-2 #### [facility] ([id number]) [address] [place] [address] 50386 #### 47618-8 #### [facility] ([id number]) [address] [facility], [address] [place] [address] RBC COUNT 4.46 X10E12/L Normal 4.10-5.70 [facility] Comment on above: Performed By: #### B JAMES RONDON, 1987-08, #### [facility] ([id number]) [address] [place] [address] 16327 #### 34095-2 #### [facility] ([id number]) [address] [address] WBC (Bld) [#/Vol] 8.6 10*3/uL Normal 4.0-11.0 [facility] Comment on above: Performed By: #### B JAMES RONDON, 1987-08, #### [facility] ([id number]) [address] [place] [address] 90526 #### 17650-6 #### [facility] ([id number]) [address] [facility], [address] [address] CREATININEon 12-16-2023 Creatinine [Mass/Vol] 3.32 mg/dL High 0.70-1.20 [facility] Comment on above: Result Comment: METH OD TRACEABLE TO IDMS STANDARD Performed By: #### B JAMES RONDON, 1987-08, #### [facility] ([id number]) [address] [place] [address] 47520 #### 88839-5 #### [facility] ([id number]) [address] [address] GFR/1.73 sq M.predicted among non-blacks MDRD (S/P/Bld) [Vol rate/Area] 20 mL/min/{1.73_m2} Low >59 [facility] Comment on above: Result Comment: Reported eGFR is based on the CKD-EPI 2020 equation that does not use a race coefficient. Performed By: #### B JAMES RONDON, 1987-08, #### [facility] ([id number]) [address] [place] [address] 94614 #### 45214-1 #### [facility] ([id number]) [address] [place] [address] ELECTROLYTESon 12-16-2023 Anion gap [Moles/Vol] 8 mmol/L Normal 5-15 [facility] Comment on above: Performed By: #### B ALCON, CBCA, 1987-08, 15040-2 #### [facility] ([id number]) [address] [place] [address] 54793 #### 90762-7 #### [facility] ([id number]) [address] [place] [address] Chloride [Moles/Vol] 103 mmol/L Normal 98-109 [facility] Comment on above: Performed By: #### Laura RONDON CBCA, 1987-08, 03973-0 #### [facility] ([id number]) [address] [place] [address] 61843 #### 65248-0 #### [facility] ([id number]) [address], [address] [place] [address] CO2 [Moles/Vol] 18 mmol/L Low 22-32 [facility] Comment on above: Performed By: #### Laura RONDON CBCA, 1987-08, 74937-5 #### [facility] ([id number]) [address] [place] [address] 49589 #### 74887-2 #### [facility] ([id number]) [address] [place] [address] Potassium [Moles/Vol] 4.5 mmol/L Normal 3.5-5.0 [facility] Comment on above: Performed By: #### B ALCON CBCA, 1987-08, 95898-3 #### [facility] ([id number]) [address] [facility] [place] [address] #### 49915-0 #### [facility] ([id number]) [address], [address] [place] [address] Sodium [Moles/Vol] 129 mmol/L Low 134-146 [facility] Comment on above: Performed By: #### B MP, CBCA, 1987-08, 37259-6 #### [facility] ([id number]) [address] [facility], [place] [address] #### 24958-0 #### [facility] ([id number]) [address], [address] [place] [address] BLOOD UREA NITROGENon 2023 Urea nitrogen [Mass/Vol] 41 mg/dL High 5-27 [facility] Comment on above: Performed By: #### C BCA, 3094-0, INDUST[employer] MACHINE [employer]SEMBLER, ELEC #### [facility] ([id number]) [address], [address] [place] [address] CBC AND AUTO DIFFon 11-19-19 24 ABSOLUTE BASOPHIL 0.2 X10E9/L Normal 0.0-0.2 [facility] Comment on above: Performed By: #### C BCA, 3094-0, INDUST[employer]AL MACHINE ASSEMBLER, ELEC #### [facility] ([id number]) [address], [address] [place] [address] Basophils/100 WBC (Bld) 1.9 % Normal [facility] Comment on above: Performed By: #### C BCA, 3094-0, INDUSTRIAL MACHINE ASSEMBLER, ELEC #### [facility] ([id number]) [address], [address] [place] [address] KATHERINE 1+ Abnormal NONE [facility] Comment on above: Performed By: #### C BCA, 3094-0, INDUSTRIAL MACHINE ASSEMBLER, ELEC #### [facility] ([id number]) [address] [address] [place] [address] Eosinophils (Bld) [#/Vol] 0.4 10*3/uL Normal 0.0-0.4 [facility] Comment on above: Performed By: #### C BCA, 3094-0, INDUSTRIAL MACHINE ASSEMBLER, ELEC #### [facility] ([id number]) [address] [address] Eosinophils/100 WBC (Bld) 3.8 % Normal [facility] Comment on above: Performed By: #### C BCA, 3094-0, INDUSTRIAL MACHINE ASSEMBLER, ELEC #### [facility] ([id number]) [address] [address] Erythrocyte distribution width (RBC) [Ratio] 14.4 % Normal 11.5-15.0 [facility] Comment on above: Performed By: #### C BCA, 3094-0, INDUSTRIAL MACHINE ASSEMBLER, ELEC #### [facility] ([id number]) [address] [address] Hematocrit (Bld) [Volume fraction] 40.3 % Normal 39-49 [facility] Comment on above: Performed By: #### C BCA, 3094-0, INDUSTRIAL MACHINE ASSEMBLER, ELEC #### [facility] ([id number]) [address] [address] Hemoglobin (Bld) [Mass/Vol] 13.4 g/dL Normal 13.0-17.0 [facility] Comment on above: Performed By: #### C BCA, 3094-0, INDUSTRIAL MACHINE ASSEMBLER, ELEC #### [facility] ([id number]) [address] [address] Lymphocytes (Bld) [#/Vol] 2.0 10*3/uL Normal 1.0-3.5 [facility] Comment on above: Performed By: #### C BCA, 3094-0, INDUSTRIAL MACHINE ASSEMBLER, ELEC #### [facility] ([id number]) [address] [place] [address] Lymphocytes/100 WBC (Bld) 21.7 % Normal [facility] Comment on above: Performed By: #### C BCA, 3094-0, INDUSTRIAL MACHINE ASSEMBLER, ELEC #### [facility] ([id number]) [address], [facility] [[email or web address]] [address] [place] [address] MCH (RBC) [Entitic mass] 29.6 pg Normal 27-34 [facility] Comment on above: Performed By: #### C BCA, 3094-0, INDUSTRIAL MACHINE ASSEMBLER, ELEC #### [facility] ([id number]) [address], [facility] [[email or web address]] [address] [place] [address] MCHC (RBC) [Mass/Vol] 33.4 g/dL Normal 32-36 [facility] Comment on above: Performed By: #### C BCA, 3094-0, INDUSTRIAL MACHINE ASSEMBLER, ELEC #### [facility] ([id number]) [address], [facility] [[email or web address]] [address] [place] [address] MCV (RBC) [Entitic vol] 89 fL Normal 80-100 [facility] Comment on above: Performed By: #### C BCA, 3094-0, INDUSTRIAL MACHINE ASSEMBLER, ELEC #### [facility] ([id number]) [address], [address] [place] [address] Monocytes (Bld) [#/Vol] 0.6 10*3/uL Normal 0-0.9 [facility] Comment on above: Performed By: #### C BCA, 3094-0, INDUSTRIAL MACHINE ASSEMBLER, ELEC #### [facility] ([id number]) [address], [facility] [[email or web address]] [address] [place] [address] Monocytes/100 WBC (Bld) 6.6 % Normal [facility] Comment on above: Performed By: #### C BCA, 3094-0, INDUSTRIAL MACHINE ASSEMBLER, ELEC #### [facility] ([id number]) [address] [place] [address] Neutrophils (Bld) [#/Vol] 6.1 10*3/uL Normal 1.5-6.6 [facility] Comment on above: Performed By: #### C IRENE, 3094-0, INDUSTRIAL MACHINE ASSEMBLER, ELEC #### [facility] ([id number]) [address], [facility] [[email or web address]] [address] [place] [address] Platelet mean volume (Bld) [Entitic vol] 8.0 fL Normal 7-12 [facility] Comment on above: Performed By: #### C IRENE, 3094-0, INDUSTRIAL MACHINE ASSEMBLER, ELEC #### [facility] ([id number]) [address], [facility] [[email or web address]] [address] [place] [address] Platelets (Bld) [#/Vol] 253 10*3/uL Normal 150-450 [facility] Comment on above: Performed By: #### Gabrielle BONILLA, 3094-0, INDUSTRIAL MACHINE ASSEMBLER, ELEC #### [facility] ([id number]) [address], [facility] [[email or web address]] [address] [place] [address] RBC COUNT 4.54 X10E12/L Normal 4.10-5.70 [facility] Comment on above: Performed By: #### Gabrielle BONILLA, 3094-0, INDUSTRIAL MACHINE ASSEMBLER, ELEC #### [facility] ([id number]) [address], [facility] [[email or web address]] [address] [place] [address] SEG NEUTROPHIL 66.0 % Normal [facility] Comment on above: Performed By: #### C IRENE, 3094-0, INDUSTRIAL MACHINE ASSEMBLER, ELEC #### [facility] ([id number]) [address] [address] [place] [address] WBC (Bld) [#/Vol] 9.3 10*3/uL Normal 4.0-11.0 [facility] Comment on above: Performed By: #### Gabrielle BONILLA, 3094-0, INDUSTRIAL MACHINE ASSEMBLER, ELEC #### [facility] ([id number]) [address] [place] [address] CREATININEon 11-19-2023 Creatinine [Mass/Vol] 3.18 mg/dL High 0.60-1.30 [facility] Comment on above: Result Comment: METH OD TRACEABLE TO IDMS STANDARD Performed By: #### C BCA, 3094-0, INDUSTRIAL MACHINE ASSEMBLER, ELEC #### [facility] ([id number]) [address] [place] [address] GFR/1.73 sq M.predicted among non-blacks MDRD (S/P/Bld) [Vol rate/Area] 21 mL/min/{1.73_m2} Low >59 [facility] Comment on above: Result Comment: Reported eGFR is based on the CKD-EPI 2020 equation that does not use a race coefficient. Performed By: #### C BCA, 3094-0, INDUSTRIAL MACHINE ASSEMBLER, ELEC #### [facility] ([id number]) [address], [address] [place] [address] ELECTROLYTESon 11-19-2023 Anion gap [Moles/Vol] 9 mmol/L Normal 5-15 [facility] Comment on above: Performed By: #### C BCA, 3094-0, INDUSTRIAL MACHINE ASSEMBLER, ELEC #### [facility] ([id number]) [address], [address] [place] [address] Chloride [Moles/Vol] 100 mmol/L Normal 98-109 [facility] Comment on above: Performed By: #### C BCA, 3094-0, INDUSTRIAL MACHINE ASSEMBLER, ELEC #### [facility] ([id number]) [address], [address] [place] [address] CO2 [Moles/Vol] 22 mmol/L Normal 22-32 [facility] Comment on above: Performed By: #### C BCA, 3094-0, INDUSTRIAL MACHINE ASSEMBLER, ELEC #### [facility] ([id number]) [address], [address] [place] [address] Potassium [Moles/Vol] 3.9 mmol/L Normal 3.5-5.0 [facility] Comment on above: Performed By: #### C BCA, 3094-0, INDUSTRIAL MACHINE ASSEMBLER, ELEC #### [facility] ([id number]) [address], [address] [place] [address] Sodium [Moles/Vol] 131 mmol/L Low 134-146 [facility] Comment on above: Performed By: #### C BCA, 3094-0, INDUSTRIAL MACHINE ASSEMBLER, ELEC #### [facility] ([id number]) [address], [address] [place] [address] BLOOD UREA NITROGENon 2023 Urea nitrogen [Mass/Vol] 35 mg/dL High 5-27 [facility] Comment on above: Performed By: #### B ALCON CBCA, 1987-08, 35011-4 #### [facility] ([id number]) [address] [place] [address] #### 56819-6 #### [facility] ([id number]) [address], [address] [place] [address] CALCIUMon 10-23-2023 Calcium [Mass/Vol] 8.1 mg/dL Low 8.5-10.5 [facility] Comment on above: Performed By: #### Laura RONDON, CBCA, 1987-08, 11946-0 #### [facility] ([id number]) [address] [place] [address] #### 07186-3 #### [facility] ([id number]) [address], [address] [place] [address] CBC AND AUTO DIFFon 10-23-19 24 ABSOLUTE BASOPHIL 0.0 X10E9/L Normal 0.0-0.2 [facility] Comment on above: Performed By: #### Laura RONDON, CBCA, 1987-08, 17526-9 #### [facility] [facility] ([id number]) [address] [place] [address] #### 55366-5 #### [facility] ([id number]) [address] [place] [address], [address] [place] [address] ABSOLUTE NEUTROPHIL 5.4 X10E9/L Normal 1.5-6.6 [facility] Comment on above: Performed By: #### B MP, CBCA, 1987-08, 85512-0 #### [facility] ([id number]) [address] [place] [address] 07093 #### 22948-4 #### [facility] ([id number]) [address] [place] [address], [address] [place] [address] Basophils/100 WBC (Bld) 0.5 % Normal [facility] Comment on above: Performed By: #### Laura RONDON, CBCA, 1987-08, 39060-1 #### [facility] ([id number]) [address] [place] [address] 11857 #### 16676-4 #### [facility] ([id number]) [address] [place] [address], [address] [place] [address] Eosinophils (Bld) [#/Vol] 0.3 10*3/uL Normal 0.0-0.4 [facility] Comment on above: Performed By: #### B MP, CBCA, 1987-08, 21075-3 #### [facility] ([id number]) [address] [place] [address] 61860 #### 48724-4 #### [facility] ([id number]) [address] [place] [address], [address] [place] [address] Eosinophils/100 WBC (Bld) 3.2 % Normal [facility] Comment on above: Performed By: #### B MP, CBCA, 1987-08, 31619-8 #### [facility] ([id number]) [address] [place] [address] 49898 #### 68991-5 #### [facility] ([id number]) [address] [facility], [address] [place] [address] Erythrocyte distribution width (RBC) [Ratio] 14.4 % Normal 11.5-15.0 [facility] Comment on above: Performed By: #### B ALCON, CBCA, 1987-08, 34063-4 #### [facility] ([id number]) [address] [place] [address] 12241 #### 67625-4 #### [facility] ([id number]) [address] [facility], [address] [place] [address] Hematocrit (Bld) [Volume fraction] 39.7 % Normal 39-49 [facility] Comment on above: Performed By: #### Laura RONDON, CBCA, 1987-08, 61175-5 #### [facility] ([id number]) [address] [place] [address] 99947 #### 77272-8 #### [facility] ([id number]) [address] [facility], [address] [place] [address] Hemoglobin (Bld) [Mass/Vol] 13.1 g/dL Normal 13.0-17.0 [facility] Comment on above: Performed By: #### Laura RONDON, CBCA, 1987-08, 10390-1 #### [facility] ([id number]) [address] [place] [address] 90156 #### 05278-0 #### [facility] ([id number]) [address] [facility], [address] [place] [address] Lymphocytes (Bld) [#/Vol] 2.1 10*3/uL Normal 1.0-3.5 [facility] Comment on above: Performed By: #### Laura MP, CBCA, 1987-08, 16525-0 #### [facility] ([id number]) [address] [place] [address] 66157 #### 81399-5 #### [facility] ([id number]) [address], [address] [place] [address] Lymphocytes/100 WBC (Bld) 24.5 % Normal [facility] Comment on above: Performed By: #### Laura RONDON, CBCA, 1987-08, #### [facility] ([id number]) [address] [place] [address] 51131 #### 18003-8 #### [facility] ([id number]) [address] [facility], [address] [place] [address] MCH (RBC) [Entitic mass] 29.0 pg Normal 27-34 [facility] Comment on above: Performed By: #### Laura RONDON, CBCA, 1987-08, #### [facility] ([id number]) [address] [place] [address] 69839 #### 33592-7 #### [facility] ([id number]) [address], [address] [place] [address] MCHC (RBC) [Mass/Vol] 32.9 g/dL Normal 32-36 [facility] Comment on above: Performed By: #### Laura RONDON, CBCA, 1987-08, #### [facility] ([id number]) [address] [place] [address] 74996 #### 28305-4 #### [facility] ([id number]) [address], [address] [place] [address] MCV (RBC) [Entitic vol] 88 fL Normal 80-100 [facility] Comment on above: Performed By: #### Laura RONDON, CBCA, 1987-08, #### [facility] ([id number]) [address] [place] [address] 50977 #### 37937-1 #### [facility] ([id number]) [address], [address] [place] [address] Monocytes (Bld) [#/Vol] 0.8 10*3/uL Normal 0-0.9 [facility] Comment on above: Performed By: #### B MP, CBCA, 1987-08, #### [facility] ([id number]) [address] [place] [address] 05826 #### 14103-1 #### [facility] ([id number]) [address], [address] [place] [address] Monocytes/100 WBC (Bld) 9.2 % Normal [facility] Comment on above: Performed By: #### Laura MP, CBCA, 1987-08, #### [facility] ([id number]) [address] [place] [address] 96748 #### 18340-8 #### [facility] ([id number]) [address], [address] [place] [address] Neutrophils/100 WBC (Bld) 62.6 % Normal [facility] Comment on above: Performed By: #### Laura MP, CBCA, 1987-08, #### [facility] ([id number]) [address] [place] [address] 81472 #### 39977-6 #### [facility] ([id number]) [address], [address] [place] [address] Platelet mean volume (Bld) [Entitic vol] 8.6 fL Normal 7-12 [facility] Comment on above: Performed By: #### B MP, CBCA, 1987-08, 93373-0 #### [facility] ([id number]) [address] [place] [address] 12116 #### 91671-2 #### [facility] ([id number]) [address], [address] [place] [address] Platelets (Bld) [#/Vol] 247 10*3/uL Normal 150-450 [facility] Comment on above: Performed By: #### B MP, CBCA, 1987-08, 91990-0 #### [facility] ([id number]) [address] [place] [address] 39064 #### 03428-9 #### [facility] ([id number]) [address] [facility], [address] [place] [address] RBC COUNT 4.51 X10E12/L Normal 4.10-5.70 [facility] Comment on above: Performed By: #### B MP, CBCA, 1987-08, 72242-7 #### [facility] ([id number]) [address] [place] [address] 58378 #### 66436-3 #### [facility] ([id number]) [address] [facility], [address] [place] [address] WBC (Bld) [#/Vol] 8.5 10*3/uL Normal 4.0-11.0 [facility] Comment on above: Performed By: #### B MP, CBCA, 1987-08, 28001-6 #### [facility] ([id number]) [address] [place] [address] 72201 #### 70267-8 #### [facility] ([id number]) [address] [facility], [address] [place] [address] CREATININEon 10-23-2023 Creatinine [Mass/Vol] 2.69 mg/dL High 0.70-1.20 [facility] Comment on above: Result Comment: METH OD TRACEABLE TO IDMS STANDARD Performed By: #### B JAMES RONDON, 1987-08, 42721-5 #### [facility] ([id number]) [address] [place] [address] 02331 #### 48236-6 #### [facility] ([id number]) [address] [facility], [address] [place] [address] GFR/1.73 sq M.predicted among non-blacks MDRD (S/P/Bld) [Vol rate/Area] 26 mL/min/{1.73_m2} Low >59 [facility] Comment on above: Result Comment: Reported eGFR is based on the CKD-EPI 2020 equation that does not use a race coefficient. Performed By: #### B JAMES RONDON, 1987-08, 18425-0 #### [facility] ([id number]) [address] [place] [address] 37136 #### 92464-9 #### [facility] ([id number]) [address] [facility], [address] [place] [address] Calcium.ionized (Bld) [Moles /Vol]on 10-23-2023 PORTABLE ICA 4.8 mg/dL Normal 4.5-5.3 [facility] Comment on above: Performed By: #### B JAMES RONDON, 1987-08, 48891-1 #### [facility] ([id number]) [address] [place] [address] 01991 #### 30607-1 #### [facility] ([id number]) [address] [place] [address], [address] [place] [address] ELECTROLYTESon 10-23-2023 Anion gap [Moles/Vol] 5 mmol/L Normal 5-15 [facility] Comment on above: Performed By: #### B JAMES RONDON, 1987-08, 51167-4 #### [facility] ([id number]) [address] [place] [address] 18691 #### 82033-3 #### [facility] ([id number]) [address] [facility], [address] [place] [address] Chloride [Moles/Vol] 108 mmol/L Normal 98-109 [facility] Comment on above: Performed By: #### JAMES Sanchez MP, 1987-08, 32232-9 #### [facility] ([id number]) [address] [place] [address] 38712 #### 24083-3 #### [facility] ([id number]) [address] [facility], [address] [place] [address] CO2 [Moles/Vol] 18 mmol/L Low 22-32 [facility] Comment on above: Performed By: #### JAMES Sanchez MP, 1987-08, 47775-6 #### [facility] ([id number]) [address] [place] [address] 85126 #### 78390-4 #### [facility] ([id number]) [address] [facility], [address] [place] [address] Potassium [Moles/Vol] 4.1 mmol/L Normal 3.5-5.0 [facility] Comment on above: Performed By: #### JAMES Sanchez MP, 1987-08, 36315-6 #### [facility] ([id number]) [address] [place] [address] 62839 #### 84328-2 #### [facility] ([id number]) [address] [facility], [address] [place] [address] Sodium [Moles/Vol] 131 mmol/L Low 134-146 [facility] Comment on above: Performed By: #### JAMES Sanchez MP, 1987-08, 64621-5 #### [facility] ([id number]) [address] [place] [address] #### 95757-8 #### [facility] ([id number]) [address], [address] [place] [address] ESR Photometric method (Bld) [Velocity]on 10-23-2023 ESR, ERYTHROCYTE SEDIMENTATION RATE 89 mm/h High 0-20 [facility] Comment on above: Performed By: #### B ALCON, CBCA, 1987-08, 54169-2 #### [facility] ([id number]) [address] [place] [address] 64926 #### 34700-9 #### [facility] ([id number]) [address], [address] [place] [address] HGB A1C (GLYCO-HGB)on 2023 Glucose [Mass/Vol] 235 mg/dL Normal [facility] Comment on above: Performed By: #### B ALCON, CBCA, 1987-08, 68167-4 #### [facility] ([id number]) [address] [place] [address] 40109 #### 67922-1 #### [facility] ([id number]) [address], [address] [place] [address] HbA1c (Bld) [Mass fraction] 9.8 % High 4.4-5.6 [facility] Comment on above: Result Comment: NOTE ADA Guidelines Result HgbA1c Normal : less than 5.7 % Prediabetes : 5.7 % to 6.4 % Diabetes : > 6.4 % Use with caution in patients with abnormal hemoglobin variants as the half-life of red blood cells and in vivo glycation rates are affected. Performed By: #### B ALCON, CBCA, 1987-08, 63778-4 #### [facility] ([id number]) [address] [place] [address] 96678 #### 84428-4 #### [facility] ([id number]) [address] [facility], [address] [place] [address] LIVER PANELon 10-23-2023 Albumin [Mass/Vol] 2.8 g/dL Low 3.2-5.3 [facility] Comment on above: Performed By: #### JAMES Sanchez MP, 1987-08, 46541-5 #### [facility] ([id number]) [address] [place] [address] 83919 #### 02115-8 #### [facility] ([id number]) [address] [facility], [address] [place] [address] ALP [Catalytic activity/Vol] 86 U/L Normal 39-130 [facility] Comment on above: Performed By: #### Laura RONDON CBCJarrett, 1987-08, 32822-8 #### [facility] ([id number]) [address] [place] [address] 52661 #### 99890-7 #### [facility] ([id number]) [address] [facility], [address] [place] [address] ALT [Catalytic activity/Vol] 19 U/L Normal 0-40 [facility] Comment on above: Performed By: #### Laura RONDON CBCJarrett, 1987-08, 93535-0 #### [facility] ([id number]) [address] [place] [address] 19846 #### 43760-0 #### [facility] ([id number]) [address] [facility], [address] [place] [address] AST [Catalytic activity/Vol] 15 U/L Normal 0-41 [facility] Comment on above: Performed By: #### Laura RONDON CBCA, 1987-08, 41041-3 #### [facility] ([id number]) [address] [place] [address] 98106 #### 95765-0 #### [facility] ([id number]) [address] [facility], [address] [place] [address] Bilirubin [Mass/Vol] 0.5 mg/dL Normal 0.3-1.2 [facility] Comment on above: Performed By: #### Laura RONDON CBCA, 1987-08, 97691-8 #### [facility] ([id number]) [address] [place] [address] 98177 #### 70494-0 #### [facility] ([id number]) [address] [place] [address], [address] [place] [address] Bilirubin.indirect [Mass/Vol] mg/dL Normal 0.0-0.4 [facility] Comment on above: Performed By: #### Laura RONDON CBCA, 1987-08, 02035-6 #### [facility] ([id number]) [address] [place] [address] 43293 #### 94151-7 #### [facility] ([id number]) [address] [place] [address], [address] [place] [address] Protein [Mass/Vol] 6.4 g/dL Normal 6.0-8.0 [facility] Comment on above: Performed By: #### Laura RONDON CBCA, 1987-08, 35349-4 #### [facility] ([id number]) [address] [place] [address] 60480 #### 56365-8 #### [facility] ([id number]) [facility] [facility], [address] [place] [address] Lipid 1996 panelon 4 Cholesterol [Mass/Vol] 135 mg/dL Low 150-200 [facility] Comment on above: Performed By: #### B JAMES RONDON, 62-6 #### [facility] ([id number]) [address] [place] [address] #### 85378-0 #### [facility] ([id number]) [address], [address] [place] [address] Cholesterol in HDL [Mass/Vol] 40 mg/dL Normal >39 [facility] Comment on above: Result Comment: HDL <40 mg/dL - High Risk HDL > or = 40mg/dL- Desirable HDL >60 mg/dL - Negative Risk Performed By: #### B JAMES RONDON, 1987-08, 50238-9 #### [facility] ([id number]) [address] [place] [address] 45030 #### 74783-6 #### [facility] ([id number]) [address], [address] [place] [address] Cholesterol in LDL [Mass/Vol] 57 mg/dL Normal <130 [facility] Comment on above: Result Comment: LDL <100 mg/dL - Desirable LDL >160 mg/dL - High Risk Performed By: #### JAMES Sanchez MP, 1987-08, 49968-6 #### [facility] ([id number]) [address] [place] [address] #### 61854-0 #### [facility] ([id number]) [address], [address] [place] [address] Cholesterol in VLDL [Mass/Vol] 38 mg/dL High 0-30 [facility] Comment on above: Performed By: #### B ALCON, CBCA, 1987-08, 00738-6 #### [facility] ([id number]) [address] [place] [address] 71404 #### 59568-6 #### [facility] ([id number]) [address] [facility], [address] [place] [address] CHOLESTEROL:HDL 3.4 Normal 1.0-5.0 [facility] Comment on above: Performed By: #### B ALCON, CBCA, 1987-08, 44613-4 #### [facility] ([id number]) [address] [place] [address] 74591 #### 47300-8 #### [facility] ([id number]) [address] [facility], [address] [place] [address] Triglyceride [Mass/Vol] 192 mg/dL High 27-150 [facility] Comment on above: Performed By: #### B ALCON, CBCA, 1987-08, 00723-3 #### [facility] ([id number]) [address] [place] [address] 70805 #### 27533-1 #### [facility] ([id number]) [address] [facility], [address] [place] [address] MAGNESIUMon 10-23-2023 Magnesium [Mass/Vol] 2.1 mg/dL Normal 1.8-2.6 [facility] Comment on above: Performed By: #### B ALCON, CBCA, 1987-08, 02713-9 #### [facility] ([id number]) [address] [place] [address] 26533 #### 53694-0 #### [facility] ([id number]) [address] [facility], [address] [place] [address] Natriuretic peptide.B melony silver N-Terminal IA [Mass/Vol]on 10-23-2023 Natriuretic peptide B (Bld) [Mass/Vol] 1528 pg/mL High <=88 [facility] Comment on above: Result Comment: NOTE [...] absence of renal failure. Test Performed by: [place] [address] Refrigeration Houseman: Brittani Nieves Ph.D.; CLIA# [id number] Performed By: #### B JAMES RONDON, 1987-08, 92191-6 #### [facility] ([id number]) [address] [place] [address] 45196 #### 25299-6 #### [facility] ([id number]) [address] [place] [address], [address] [place] [address] Prostate specific Ag [Mass/V ol]on 10-23-2023 PSA SCREEN 1.65 ng/mL Normal 0.00-4.00 [facility] Comment on above: Result Comment: The method used for this test is [employer] DXI chemiluminescent immunoassay. Values obtained by different assay methods cannot be used interchangeably. Performed By: #### B JAMES RONDON, 1987-08, 01669-9 #### [facility] ([id number]) [address] [place] [address] 27283 #### 78672-3 #### [facility] ([id number]) [address] [place] [address], [address] [place] [address] Vitamin D+Metabolites [Mass/ Vol]on 10-23-2023 VITAMIN D 25 HYD TOT 8.3 ng/mL Low 30-100 [facility] Comment on above: Result Comment: Vitamin D status 25 [place] Vitamin D Deficiency <20 ng/mL Insufficiency 20-29 ng/mL Sufficiency 30-100 ng/mL Toxicity >100 ng/mL NOTE: A pediatric reference range has not been established by the reptile farmer of this kit. The [place] [employer] recommends a Vitamin D level of = or >20ng/mL in infants and children. Performed By: #### B JAMES RONDON, 1987-08, 84045-1 #### [facility] ([id number]) [address] [place] [address] 84960 #### 92949-3 #### [facility] ([id number]) [address] [facility], [facility] [[email or web address]] [address] [place] [address] BLOOD UREA NITROGENon 2023 Urea nitrogen [Mass/Vol] 33 mg/dL High 5-27 [facility] Comment on above: Performed By: #### B JAMES RONDON, 1987-08, 72457-4 #### [facility] ([id number]) [address] [place] [address] 93942 #### 83426-0 #### [facility] ([id number]) [address] [facility], [facility] [[email or web address]] [address] [place] [address] CREATININEon 09-03-2023 Creatinine [Mass/Vol] 2.42 mg/dL High 0.70-1.20 [facility] Comment on above: Result Comment: METH OD TRACEABLE TO IDMS STANDARD Performed By: #### B JAMES RONDON, 1987-08, 26946-5 #### [facility] ([id number]) [address] [place] [address] 47602 #### 63109-3 #### [facility] ([id number]) [address] [facility], [address] [place] [address] GFR/1.73 sq M.predicted among non-blacks MDRD (S/P/Bld) [Vol rate/Area] 29 mL/min/{1.73_m2} Low >59 [facility] Comment on above: Result Comment: Reported eGFR is based on the CKD-EPI 2020 equation that does not use a race coefficient. Performed By: #### B JAMES RONDON, 1987-08, 03900-2 #### [facility] ([id number]) [address] [place] [address] 04608 #### 08368-0 #### [facility] ([id number]) [address], [address] [place] [address] ELECTROLYTESon 09-03-2023 Anion gap [Moles/Vol] 7 mmol/L Normal 5-15 [facility] Comment on above: Performed By: #### B JAMES RONDON, 1987-08, 07214-4 #### [facility] ([id number]) [address] [place] [address] 51186 #### 36336-7 #### [facility] ([id number]) [address] [facility], [address] [place] [address] Chloride [Moles/Vol] 106 mmol/L Normal 98-109 [facility] Comment on above: Performed By: #### B JAMES RONDON, 1987-08, 15312-4 #### [facility] ([id number]) [address] [place] [address] 56894 #### 84852-6 #### [facility] ([id number]) [address], [address] [place] [address] CO2 [Moles/Vol] 21 mmol/L Low 22-32 [facility] Comment on above: Performed By: #### B JAMES RONDON, 1987-08, 17306-0 #### [facility] ([id number]) [address] [place] [address] 74505 #### 46812-1 #### [facility] ([id number]) [address] [place] [address], [address] [place] [address] Potassium [Moles/Vol] 4.2 mmol/L Normal 3.5-5.0 [facility] Comment on above: Performed By: #### JAMES Sanchez MP, 1987-08, 08634-3 #### [facility] ([id number]) [address] [place] [address] 31172 #### 27063-0 #### [facility] ([id number]) [address] [place] [address], [address] [place] [address] Sodium [Moles/Vol] 134 mmol/L Normal 134-146 [facility] Comment on above: Performed By: #### JAMES Sanchez MP, 1987-08, 16443-5 #### [facility] ([id number]) [address] [place] [address] 65775 #### 90373-8 #### [facility] ([id number]) [address] [place] [address], [address] [place] [address] Natriuretic peptide.B prohor adrianne N-Terminal [Mass/Vol]on 09-03-2023 NT Pro BNP See Below Normal [facility] Comment on above: Result Comment: NOTE TEST RESULT FLAG UNIT REF.RANGE --- PRO B Natr Peptide 933 H pg/mL <125 Test Performed By: [facility] [employer] [address] [place] [address] Carbon Accountant: Charlotte Hart III #[id number] Performed By: #### JAMES Sanchez MP, 1987-08, 79868-4 #### [facility] ([id number]) [address] [place] [address] #### 66426-7 #### [facility] ([id number]) [address], [address] [place] [address] BLOOD UREA NITROGENon 2023 Urea nitrogen [Mass/Vol] 38 mg/dL High 5-27 [facility] Comment on above: Performed By: #### B JAMES RONDON, 1987-08, 19687-9 #### [facility] ([id number]) [address] [place] [address] #### 19768-9 #### [facility] ([id number]) [address] [place] [address] CREATININEon 07-31-2023 Creatinine [Mass/Vol] 2.76 mg/dL High 0.70-1.20 [facility] Comment on above: Result Comment: METH OD TRACEABLE TO IDMS STANDARD Performed By: #### B JAMES RONDON, 1987-08, 64666-5 #### [facility] ([id number]) [address] [place] [address] #### 05004-8 #### [facility] ([id number]) [address], [address] [address] GFR/1.73 sq M.predicted among non-blacks MDRD (S/P/Bld) [Vol rate/Area] 25 mL/min/{1.73_m2} Low >59 [facility] Comment on above: Result Comment: Reported eGFR is based on the CKD-EPI 2020 equation that does not use a race coefficient. Performed By: #### JAMES Sanchez MP, 1987-08, 28754-5 #### [facility] ([id number]) [address] [place] [address] #### 49694-0 #### [facility] ([id number]) [address], [address] [place] [address] ELECTROLYTESon 07-31-2023 Anion gap [Moles/Vol] 7 mmol/L Normal 5-15 [facility] Comment on above: Performed By: #### JAMES Sanchez MP, 1987-08, #### [facility] ([id number]) [address] [place] [address] #### 14741-1 #### [facility] ([id number]) [address] [facility], [address] [place] [address] Chloride [Moles/Vol] 104 mmol/L Normal 98-109 [facility] Comment on above: Performed By: #### JAMES Sanchez MP, 1987-08, #### [facility] ([id number]) [address] [place] [address] #### 14539-6 #### [facility] ([id number]) [address] [facility], [address] [place] [address] CO2 [Moles/Vol] 21 mmol/L Low 22-32 [facility] Comment on above: Performed By: #### JAMES Sanchez MP, 1987-08, #### [facility] ([id number]) [address] [place] [address] 61177 #### 06321-6 #### [facility] ([id number]) [address] [facility], [address] [place] [address] Potassium [Moles/Vol] 4.3 mmol/L Normal 3.5-5.0 [facility] Comment on above: Performed By: #### JAMES Sanchez MP, 1987-08, #### [facility] ([id number]) [address] [place] [address] 29757 #### 29200-0 #### [facility] ([id number]) [address] [facility], [address] [place] [address] Sodium [Moles/Vol] 132 mmol/L Low 134-146 [facility] Comment on above: Performed By: #### JAMES Sanchez MP, 1987-08, 75332-1 #### [facility] ([id number]) [address] [place] [address] 04409 #### 76626-5 #### [facility] ([id number]) [address] [facility], [facility] [[email or web address]] [address] [place] [address] Natriuretic peptide.B prohor adrianne N-Terminal [Mass/Vol]on 07-31-2023 NT Pro BNP See Below Normal [facility] Comment on above: Result Comment: NOTE TEST RESULT FLAG UNIT REF.RANGE --- PRO B Natr Peptide 1296 H pg/mL <125 Test Performed By: [place] [address] Carbon Accountant: Charlotte Hart III #[id number] Performed By: #### JAMES Sanchez MP, 1987-08, 86295-5 #### [facility] ([id number]) [address] [place] [address] 20593 #### 16240-0 #### [facility] ([id number]) [address] [place] [address] [address] [place] [address] BLOOD UREA NITROGENon 2023 Urea nitrogen [Mass/Vol] 34 mg/dL High 5-27 [facility] Comment on above: Performed By: #### JAMES Sanchez MP, 1987-08, 03615-9 #### [facility] ([id number]) [address] [place] [address] 13226 #### 96663-0 #### [facility] ([id number]) [address] [facility] [address] [place] [address] CREATININEon 07-02-2023 Creatinine [Mass/Vol] 3.13 mg/dL High 0.70-1.20 [facility] Comment on above: Result Comment: METH OD TRACEABLE TO IDMS STANDARD Performed By: #### B JAMES RONDON, 1987-08, 19199-6 #### [facility] ([id number]) [address] [place] [address] 51964 #### 43405-7 #### [facility] ([id number]) [address] [address] GFR/1.73 sq M.predicted among non-blacks MDRD (S/P/Bld) [Vol rate/Area] 22 mL/min/{1.73_m2} Low >59 [facility] Comment on above: Result Comment: Reported eGFR is based on the CKD-EPI 2020 equation that does not use a race coefficient. Performed By: #### B JAMES RONDON, 1987-08, 72537-5 #### [facility] ([id number]) [address] [place] [address] 30030 #### 50423-8 #### [facility] ([id number]) [address] [facility] [address] [place] [address] ELECTROLYTESon 07-02-2023 Anion gap [Moles/Vol] 8 mmol/L Normal 5-15 [facility] Comment on above: Performed By: #### JAMES Sanchez MP, 1987-08, 39503-7 #### [facility] ([id number]) [address] [place] [address] 94265 #### 22076-0 #### [facility] ([id number]) [address] [address] Chloride [Moles/Vol] 106 mmol/L Normal 98-109 [facility] Comment on above: Performed By: #### JAMES Sanchez MP, 1987-08, 00420-8 #### [facility] ([id number]) [address] [place] [address] 39009 #### 47851-8 #### [facility] ([id number]) [address], [address] [place] [address] CO2 [Moles/Vol] 20 mmol/L Low 22-32 [facility] Comment on above: Performed By: #### JAMES Sanchez MP, 1987-08, 85356-5 #### [facility] ([id number]) [address] [place] [address] 16870 #### 63659-4 #### [facility] ([id number]) [address] [facility], [address] [place] [address] Potassium [Moles/Vol] 4.7 mmol/L Normal 3.5-5.0 [facility] Comment on above: Performed By: #### JAMES Sanchez MP, 1987-08, 46602-0 #### [facility] ([id number]) [address] [place] [address] 06079 #### 60538-7 #### [facility] ([id number]) [address], [address] [place] [address] Sodium [Moles/Vol] 134 mmol/L Normal 134-146 [facility] Comment on above: Performed By: #### JAMES Sanchez MP, 1987-08, 50873-6 #### [facility] ([id number]) [address] [place] [address] 25508 #### 32688-7 #### [facility] ([id number]) [address], [address] [place] [address] Natriuretic peptide.B prohor adrianne N-Terminal [Mass/Vol]on 07-02-2023 NT Pro BNP See Below Normal [facility] Comment on above: Result Comment: NOTE TEST RESULT FLAG UNIT REF.RANGE --- PRO B Natr Peptide 413 H pg/mL <125 Test Performed By: [place] [address] Carbon Accountant: Tyler Valle III, M.D. CLIA #[id number] Performed By: #### B JAMES RONDON, 1987-08, 13030-9 #### [facility] ([id number]) [address] [place] [address] 29655 #### 33514-7 #### [facility] ([id number]) [address] [place] [address] [address] [place] [address] BLOOD UREA NITROGENon 2023 Urea nitrogen [Mass/Vol] 33 mg/dL High 5-27 [facility] Comment on above: Performed By: #### JAMES Sanchez MP, 1987-08, 04394-0 #### [facility] ([id number]) [address] [place] [address] 40059 #### 16183-2 #### [facility] ([id number]) [address] [place] [address] [address] [place] [address] CREATININEon 06-04-2023 Creatinine [Mass/Vol] 2.37 mg/dL High 0.70-1.20 [facility] Comment on above: Result Comment: METH OD TRACEABLE TO IDMS STANDARD Performed By: #### B JAMES RONDON, 1987-08, 78902-6 #### [facility] ([id number]) [address] [place] [address] #### 10338-9 #### [facility] ([id number]) [address], [address] [place] [address] GFR/1.73 sq M.predicted among non-blacks MDRD (S/P/Bld) [Vol rate/Area] 30 mL/min/{1.73_m2} Low >59 [facility] Comment on above: Result Comment: Reported eGFR is based on the CKD-EPI 2020 equation that does not use a race coefficient. Performed By: #### B JAMES RONDON, 1987-08, 14688-3 #### [facility] ([id number]) [address] [place] [address] 08685 #### 20566-8 #### [facility] ([id number]) [address] [place] [address] ELECTROLYTESon 06-04-2023 Anion gap [Moles/Vol] 7 mmol/L Normal 5-15 [facility] Comment on above: Performed By: #### JAMES Sanchez MP, 1987-08, 15290-4 #### [facility] ([id number]) [address] [place] [address] 45393 #### 58869-9 #### [facility] ([id number]) [address] [place] [address] Chloride [Moles/Vol] 106 mmol/L Normal 98-109 [facility] Comment on above: Performed By: #### JAMES Sanchez MP, 1987-08, 54040-1 #### [facility] ([id number]) [address] [place] [address] 20516 #### 91816-7 #### [facility] ([id number]) [address] [place] [address] CO2 [Moles/Vol] 20 mmol/L Low 22-32 [facility] Comment on above: Performed By: #### B ALCON CBCA, 1987-08, 87160-2 #### [facility] ([id number]) [address] [place] [address] 12968 #### 50512-7 #### [facility] ([id number]) [address] [facility], [address] [place] [address] Potassium [Moles/Vol] 4.6 mmol/L Normal 3.5-5.0 [facility] Comment on above: Performed By: #### B ALCON, CBCA, 1987-08, 85921-1 #### [facility] ([id number]) [address] [place] [address] 92014 #### 45324-2 #### [facility] ([id number]) [address] [facility], [address] [place] [address] Sodium [Moles/Vol] 133 mmol/L Low 134-146 [facility] Comment on above: Performed By: #### Laura RONDON CBCA, 1987-08, 28413-7 #### [facility] ([id number]) [address] [place] [address] 28847 #### 52428-1 #### [facility] ([id number]) [address] [facility], [address] [place] [address] Natriuretic peptide.B prohor adrianne N-Terminal [Mass/Vol]on 06-04-2023 NT Pro BNP See Below Normal [facility] Comment on above: Result Comment: NOTE TEST RESULT FLAG UNIT REF.RANGE --- PRO B Natr Peptide 526 H pg/mL <125 Test Performed By: [facility] [address] [place] [address] Carbon Accountant: Tyler Valle III, M.D. CLIA #[id number] Performed By: #### B MP, CBCA, 1987-, #### [facility] ([id number]) [address] [facility], [place] [address] #### 96664-8 #### [facility] ([id number]) [address] [place] [address], [address] [place] [address] Cult,Urineon 06-03-2023 Cult,Urine Specimen Description .VOIDED URINE [...] Tobramycin 4 SUSCEPTIBLE Trimethoprim/Sulfa >=320 RESISTANT Resistant [facility] Comment on above: Performed By: #### U RC #### [address] [id number] Refrigeration Houseman: Griffin Carrion MD [facility] [address] [place] [address] Refrigeration Houseman: Jameson Aaron MD UA w/Reflex Cultureon 2023 Bilirubin, SemiQt,Ur Negative Normal NEG [facility] Comment on above: Performed By: #### U AXCOURTNEY #### [facility] [address] [place] [address] Refrigeration Houseman: Jameson Aaron MD Blood, Urine TRACE Abnormal NEG [facility] Comment on above: Performed By: #### U AXLORIO #### [facility] [address] [place], [place] 00[address] Refrigeration Houseman: Jameson Aaron MD Clarity (U) SLIGHTLY CLOUDY Abnormal CLEAR [facility] Comment on above: Performed By: #### U AX, UMICAO #### [facility] [address] [place] [address] [place], [place] 1727983 Refrigeration Houseman: Jameson Aaron MD Color (U) Yellow Normal YEL [facility] Comment on above: Performed By: #### U AX, UMICAO #### [address] [place], [place] 3247883 Refrigeration Houseman: Jameson Aaron MD Glucose Ql (U) 3+ mg/dL Abnormal NEG [facility] Comment on above: Performed By: #### U AX, UMICAO #### [address] [place], [place] 394[address]83 Refrigeration Houseman: Jameson Aaron MD Ketones Ql (U) Negative Normal NEG [facility] Comment on above: Performed By: #### U AX, UMICAO #### [address] [place] [address] Refrigeration Houseman: Jameson Aaron MD Leukocyte esterase Test strip Ql (U) TRACE Abnormal NEG [facility] Comment on above: Performed By: #### U AX, UMICAO #### [facility] [address] [place] [address] [place] [address] Refrigeration Houseman: Jameson Aaron MD Nitrite,Ur Negative Normal NEG [facility] Comment on above: Performed By: #### U AX, UMICAO #### [address] [place], [place] 5201483 Refrigeration Houseman: Jameson Aaron MD PH,Ur 5.5 Normal 5.0-9.0 [facility] Comment on above: Performed By: #### U AX, UMICAO #### [facility] [address] [place], [place] [address] Refrigeration Houseman: Jameson Aaron MD Protein Ql (U) 2+ mg/dL Abnormal NEG [facility] Comment on above: Performed By: #### U AX, UMICAO #### [facility] [address] [place], [place] 225[address]83 Refrigeration Houseman: Jameson Aaron MD Spec. Norton,Ur 1.025 High 1.010-1.020 [facility] Comment on above: Performed By: #### U AX, UMICAO #### [address] [place], [place] 35[address]83 Refrigeration Houseman: Jameson Aaron MD Urobilinogen,Ur Normal Normal 0.0-1.0 [facility] Comment on above: Performed By: #### U AX, UMICAO #### [facility] [address] [place] [address] [address] [place], [place] [address] Refrigeration Houseman: Jameson Aaron MD Urinalysis,Microon 4 Bacteria 2+ Abnormal NONE [facility] Comment on above: Performed By: #### U AX, UMICAO #### [address] [place], [place] [address]383 Refrigeration Houseman: Jameson Aaron MD Epithelial cells LM Ql (Urine sed) 0 TO 2 Normal 0-5 [facility] Comment on above: Performed By: #### U AX, UMICAO #### [facility] [address] [place], [place] [address] Refrigeration Houseman: Jameson Aaron MD Epithelial, Renal 0 TO 2 Normal 0 [facility] Comment on above: Performed By: #### U AX, UMICAO #### [facility] [address] [place], [place] 2788283 Refrigeration Houseman: Jameson Aaron MD Urine RBC's 0 TO 2 Normal 0-2 [facility] Comment on above: Performed By: #### U AX, UMICAO #### [facility] [address] [place] [address] Refrigeration Houseman: Jameson Aaron MD Urine WBC's 10 TO 20 Normal 0-5 [facility] Comment on above: Performed By: #### U AX, UMICAO #### [facility] [address] [place] [address] Refrigeration Houseman: Jameson Aaron MD Yeast PRESENCE NOTED Abnormal NONE [facility] Comment on above: Performed By: #### U AX, UMICAO #### [facility] [address] [place] [address] Refrigeration Houseman: Jameson Aaron MD BLOOD UREA NITROGENon 2023 Urea nitrogen [Mass/Vol] 44 mg/dL High 5-27 [facility] Comment on above: Performed By: #### E LEC, 3094-0, INDUSTRIAL MACHINE ASSEMBLER, 66578-4 #### [facility] ([id number]) [address] [place] [address] 63[address] #### 88220-6, HA1C #### [facility] ([id number]) [address] [place] [address] CREATININEon 05-06-2023 Creatinine [Mass/Vol] 2.71 mg/dL High 0.70-1.20 [facility] Comment on above: Result Comment: METH OD TRACEABLE TO IDMS STANDARD Performed By: #### E LEC, 3094-0, INDUSTRIAL MACHINE ASSEMBLER, 38806-3 #### [facility] ([id number]) [address] [place] [address] 03245 #### 46641-3, HA1C #### [facility] ([id number]) [address] [facility], [address] [place] [address] GFR/1.73 sq M.predicted among non-blacks MDRD (S/P/Bld) [Vol rate/Area] 26 mL/min/{1.73_m2} Low >59 [facility] Comment on above: Result Comment: Reported eGFR is based on the CKD-EPI 2020 equation that does not use a race coefficient. Performed By: #### E LEC, 3094-0, INDUSTRIAL MACHINE ASSEMBLER, 81104-9 #### [facility] ([id number]) [address] [place] [address] 06334 #### 52535-8, HA1C #### [facility] ([id number]) [address] [place] [address] ELECTROLYTESon 05-06-2023 Anion gap [Moles/Vol] 11 mmol/L Normal 5-15 [facility] Comment on above: Performed By: #### E LEC, 3094-0, INDUSTRIAL MACHINE ASSEMBLER, 03237-8 #### [facility] ([id number]) [address] [place] [address] 85302 #### 68235-8, HA1C #### [facility] ([id number]) [address] [facility], [address] [place] [address] Chloride [Moles/Vol] 101 mmol/L Normal 98-109 [facility] Comment on above: Performed By: #### E LEC, 3094-0, INDUSTRIAL MACHINE ASSEMBLER, 31910-8 #### [facility] ([id number]) [address] [place] [address] 17409 #### 44334-4, HA1C #### [facility] ([id number]) [address] [place] [address] CO2 [Moles/Vol] 18 mmol/L Low 22-32 [facility] Comment on above: Performed By: #### E LEC, 3094-0, INDUSTRIAL MACHINE ASSEMBLER, 97989-3 #### [facility] ([id number]) [address] [place] [address]63 #### 46120-5, HA1C #### [facility] ([id number]) [address] [facility], [address] [place] [address] Potassium [Moles/Vol] 4.4 mmol/L Normal 3.5-5.0 [facility] Comment on above: Performed By: #### E LEC, 3094-0, INDUSTRIAL MACHINE ASSEMBLER, 04132-8 #### [facility] ([id number]) [address] [place] [address] 88655 #### 84794-8, HA1C #### [facility] ([id number]) [address] [place] [address], [address] [place] [address] Sodium [Moles/Vol] 130 mmol/L Low 134-146 [facility] Comment on above: Performed By: #### E LEC, 3094-0, INDUSTRIAL MACHINE ASSEMBLER, 09247-5 #### [facility] ([id number]) [address] [place] [address] #### 27506-0, HA1C #### [facility] ([id number]) [address] [place] [address], [address] [place] [address] HGB A1C (GLYCO-HGB)on 2023 Glucose [Mass/Vol] 260 mg/dL Normal [facility] Comment on above: Performed By: #### B MP, CBCA, 1987-08, 31267-6 #### [facility] ([id number]) [address] [place] [address] 91001 #### 87880-7 #### [facility] ([id number]) [address] [place] [address], [address] [place] [address] HbA1c (Bld) [Mass fraction] 10.7 % High 4.4-5.6 [facility] Comment on above: Result Comment: NOTE ADA Guidelines Result HgbA1c Normal : less than 5.7 % Prediabetes : 5.7 % to 6.4 % Diabetes : > 6.4 % Use with caution in patients with abnormal hemoglobin variants as the half-life of red blood cells and in vivo glycation rates are affected. Performed By: #### B MP, CBCA, 1987-08, 78725-6 #### [facility] ([id number]) [address] [place] [address]6584 #### 96815-7 #### [facility] ([id number]) [address] [facility], [address] [place] [address] Lipid 1996 panelon 4 Cholesterol [Mass/Vol] 205 mg/dL High 150-200 [facility] Comment on above: Performed By: #### Tiki LEC, 3094-0, INDUSTRIAL MACHINE ASSEMBLER, 01386-7 #### [facility] ([id number]) [address] [place] [address]20 #### 83891-2, HA1C #### [facility] ([id number]) [address] [place] [address], [address] [place] [address] Cholesterol in HDL [Mass/Vol] 35 mg/dL Low >39 [facility] Comment on above: Result Comment: HDL <40 mg/dL - High Risk HDL > or = 40mg/dL- Desirable HDL >60 mg/dL - Negative Risk Performed By: #### Tiki LEC, 3094-0, INDUSTRIAL MACHINE ASSEMBLER, 55593-4 #### [facility] ([id number]) [address] [place] [address] 38287 #### 61013-8, HA1C #### [facility] ([id number]) [address] [facility], [address] [place] [address] Cholesterol in LDL [Mass/Vol] 120 mg/dL Normal <130 [facility] Comment on above: Result Comment: LDL <100 mg/dL - Desirable LDL >160 mg/dL - High Risk Performed By: #### E LEC, 3094-0, INDUSTRIAL MACHINE ASSEMBLER, 16435-6 #### [facility] ([id number]) [address] [place] [address] #### 44125-8, HA1C #### [facility] ([id number]) [address] [place] [address], [address] [place] [address] Cholesterol in VLDL [Mass/Vol] 50 mg/dL High 0-30 [facility] Comment on above: Performed By: #### E LEC, 3094-0, INDUSTRIAL MACHINE ASSEMBLER, 81480-2 #### [facility] ([id number]) [address] [place] [address] #### 62866-5, HA1C #### [facility] ([id number]) [facility], [address] [place] [address] CHOLESTEROL:HDL 5.9 High 1.0-5.0 [facility] Comment on above: Performed By: #### E LEC, 3094-0, INDUSTRIAL MACHINE ASSEMBLER, 62055-8 #### [facility] ([id number]) [address] [place] [address] #### 95094-3, HA1C #### [facility] ([id number]) [address] [facility], [address] [place] [address] Triglyceride [Mass/Vol] 248 mg/dL High 27-150 [facility] Comment on above: Performed By: #### E LEC, 3094-0, INDUSTRIAL MACHINE ASSEMBLER, 14748-4 #### [facility] ([id number]) [address] [place] [address] #### 59420-3, HA1C #### [facility] ([id number]) [address], [address] [place] [address] MICROALBUMIN - ALBUMIN:CREAT ININE URINE RATIOon 05-06-2023 ALB/CREAT RATIO 2747.0 mg/g creat High 0.0-30.0 [facility] Comment on above: Performed By: #### B ALCON, CBCA, 1987-08, 45381-6 #### [facility] ([id number]) [address] [place] [address] 36447 #### 72636-9 #### [facility] ([id number]) [address], [address] [place] [address] Albumin DL <= 20 mg/L (U) [Mass/Vol] 195.2 mg/dL High 0.0-1.9 [facility] Comment on above: Performed By: #### Laura RONDON, CBCA, 1987-08, 68684-1 #### [facility] ([id number]) [address] [place] [address] 31381 #### 89073-4 #### [facility] ([id number]) [address], [address] [place] [address] URINE CREAT 71.06 mg/dL Normal [facility] Comment on above: Performed By: #### Laura RONDON, CBCA, 1987-08, 05372-0 #### [facility] ([id number]) [address] [place] [address] #### 28407-2 #### [facility] ([id number]) [address] [place] [address] Natriuretic peptide.B prohor adrianne N-Terminal [Mass/Vol]on 05-06-2023 NT Pro BNP See Below Normal [facility] Comment on above: Result Comment: NOTE TEST RESULT FLAG UNIT REF.RANGE --- PRO B Natr Peptide 314 H pg/mL <125 Test Performed By: [facility] [address] [place] [address] Carbon Accountant: Tyler Valle III, M.D. CLIA #[id number] Performed By: #### B MP, CBCA, 1987-08, 20473-7 #### [facility] ([id number]) [address] [place] [address] #### 04955-0 #### [facility] ([id number]) [address] [place] [address], [address] [place] [address] URINALYSISon 05-06-2023 Bilirubin Ql (U) Negative Normal NEG [facility] Comment on above: Performed By: #### U A #### [facility] ([id number]) [address] [place] [address] BLOOD/HGB Trace Abnormal NEG [facility] Comment on above: Performed By: #### U A #### [facility] ([id number]) [address] [place] [address] Color (U) YELLOW Normal YELLOW [facility] Comment on above: Performed By: #### U A #### [facility] ([id number]) [address] [place] [address] Glucose Ql (U) >1000 Abnormal NEG [facility] Comment on above: Performed By: #### U A #### [facility] ([id number]) [address] [place] [address] Ketones Ql (U) Negative Normal NEG [facility] Comment on above: Performed By: #### U A #### [facility] ([id number]) [address] [place] [id number] Leukocyte esterase Test strip Ql (U) Negative Normal NEG [facility] Comment on above: Result Comment: HIGH CONCENTRATIONS OF GLUCOSE MAY DECREASE THE REACTIVITY OF THE DIPSTICK LEUKOCYTE TEST PAD. Performed By: #### U A #### [facility] ([id number]) [address] [place] [id number] MUCOUS PRESENT Abnormal NONE [facility] Comment on above: Performed By: #### U A #### [facility] ([id number]) [address] [place] [address] [id number] Nitrite Ql (U) Positive Abnormal NEG [facility] Comment on above: Performed By: #### U A #### [facility] ([id number]) [address] [place] [address] [id number] pH (U) 6.0 [pH] Normal 5.0-8.5 [facility] Comment on above: Performed By: #### U A #### [facility] ([id number]) [address] [place] [address] [id number] Protein Ql (U) >300 Abnormal NEG [facility] Comment on above: Performed By: #### U A #### [facility] ([id number]) [address] [place] [address] 12798 R.B.CELLS 5 /hpf Normal 0-5 [facility] Comment on above: Performed By: #### U A #### [facility] ([id number]) [address] [place] [address] 16126 Specific gravity (U) [Rel density] 1.015 Normal 1.003-1.035 [facility] Comment on above: Performed By: #### U A #### [facility] ([id number]) [address] [place] [address] SQUAMOUS EPITHELIUM 4 /hpf Normal 0-5 [facility] Comment on above: Performed By: #### U A #### [facility] ([id number]) [address] [place] [address] 03501 TURBIDITY HAZY Abnormal CLEAR [facility] Comment on above: Performed By: #### U A #### [facility] ([id number]) [address] [place] [address] 62459 Urobilinogen Qn (U) 0.2 {Chaya'U}/dL Normal <1.1 [facility] Comment on above: Performed By: #### U A #### [facility] ([id number]) [address] [place] [address] 24133 W.B.CELLS >100 High 0-5 [facility] Comment on above: Performed By: #### U A #### [facility] ([id number]) [address] [place] [address] 84550 URINE CULTUREon 05-06-2023 Bacteria identified Cx Nom (U) SPECIMEN NOTES URINE RECEIVED WITHOUT PRESERVATIVE CULTURE RESULTS MULTIPLE SPECIES PRESENT. PROBABLE COLLECTION CONTAMINATION. SUGGEST REPEAT SPECIMEN. URINE RECEIVED WITHOUT PRESERVATIVE-DELAYS IN TRANSPORT MAY AFFECT RESULTS.INTERPRET WITH CAUTION AND CLINICAL CORRELATION IS RECOMMENDED. Normal [facility] Comment on above: Performed By: #### B MP, CBCA, 1987-, 34256-6 #### [facility] ([id number]) [address] [place] [address] 90281 #### 44100-6 #### [facility] ([id number]) [address] [facility], [address] [place] [address] BASIC METABOLIC PANLon 04-19 Anion gap [Moles/Vol] 6 mmol/L Normal 5-15 [facility] Comment on above: Performed By: #### B MP, CBCA, 1987-08, 80396-9 #### [facility] ([id number]) [address] [place] [address] 30659 #### 50679-6 #### [facility] ([id number]) [address] [place] [address] Calcium [Mass/Vol] 8.6 mg/dL Normal 8.5-10.5 [facility] Comment on above: Performed By: #### B MP, CBCA, 1987-08, 29237-1 #### [facility] ([id number]) [address] [place] [address] 75647 #### 71870-7 #### [facility] ([id number]) [address], [address] [place] [address] Chloride [Moles/Vol] 101 mmol/L Normal 98-109 [facility] Comment on above: Performed By: #### B MP, CBCA, 1987-08, 10099-6 #### [facility] ([id number]) [address] [place] [address] 59762 #### 85724-1 #### [facility] ([id number]) [address], [address] [place] [address] CO2 [Moles/Vol] 19 mmol/L Low 22-32 [facility] Comment on above: Performed By: #### B MP, CBCA, 1987-08, 76726-3 #### [facility] ([id number]) [address] [place] [address] 86171 #### 47265-1 #### [facility] ([id number]) [address] [place] [address] Creatinine [Mass/Vol] 2.57 mg/dL High 0.70-1.20 [facility] Comment on above: Result Comment: METH OD TRACEABLE TO IDMS STANDARD Performed By: #### B JAMES RONDON, 1987-08, 52571-1 #### [facility] ([id number]) [address] [place] [address] 96773 #### 66877-7 #### [facility] ([id number]) [address], [address] [place] [address] GFR/1.73 sq M.predicted among non-blacks MDRD (S/P/Bld) [Vol rate/Area] 27 mL/min/{1.73_m2} Low >59 [facility] Comment on above: Result Comment: Reported eGFR is based on the CKD-EPI 2020 equation that does not use a race coefficient. Performed By: #### B JAMES RONDON, 1987-08, #### [facility] ([id number]) [address] [place] [address] 75398 #### 21426-9 #### [facility] ([id number]) [address], [address] [place] [address] Glucose [Mass/Vol] 377 mg/dL High 65-99 [facility] Comment on above: Performed By: #### B JAMES RONDON, 1987-08, 20649-8 #### [facility] ([id number]) [address] [place] [address] 98925 #### 90918-1 #### [facility] ([id number]) [address], [address] [place] [address] Potassium [Moles/Vol] 4.2 mmol/L Normal 3.5-5.0 [facility] Comment on above: Performed By: #### B JAMES RONDON, 1987-08, #### [facility] ([id number]) [address] [place] [address] 57990 #### 12060-6 #### [facility] ([id number]) [address] [facility], [address] [place] [address] Sodium [Moles/Vol] 126 mmol/L Low 134-146 [facility] Comment on above: Performed By: #### B ALCON, CBCA, 1987-08, 90047-6 #### [facility] ([id number]) [address] [place] [address] 45255 #### 78885-2 #### [facility] ([id number]) [facility] [facility], [address] [place] [address] Urea nitrogen [Mass/Vol] 30 mg/dL High 5-27 [facility] Comment on above: Performed By: #### B ALCON, CBCA, 1987-08, #### [facility] ([id number]) [address] [place] [address] 81773 #### 63198-8 #### [facility] ([id number]) [address] [place] [address], [address] [place] [address] CBC AND AUTO DIFFon 04-19-20 23 ABSOLUTE BASOPHIL 0.1 X10E9/L Normal 0.0-0.2 [facility] Comment on above: Performed By: #### B ALCON, CBCA, 1987-08, 23993-9 #### [facility] ([id number]) [address] [place] [address] 15623 #### 43928-9 #### [facility] ([id number]) [facility], [address] [place] [address] ABSOLUTE NEUTROPHIL 8.8 X10E9/L High 1.5-6.6 [facility] Comment on above: Performed By: #### B ALCON, CBCA, 1987-08, 68866-6 #### [facility] ([id number]) [address] [place] [address] 01069 #### 62597-9 #### [facility] ([id number]) [address] [facility], [address] [place] [address] Basophils/100 WBC (Bld) 0.5 % Normal [facility] Comment on above: Performed By: #### B MP, CBCA, 1987-08, 74265-7 #### [facility] ([id number]) [address] [place] [address] 53766 #### 93420-0 #### [facility] ([id number]) [address] [facility], [address] [place] [address] Eosinophils (Bld) [#/Vol] 0.3 10*3/uL Normal 0.0-0.4 [facility] Comment on above: Performed By: #### B ALCON, CBCA, 1987-08, 88139-9 #### [facility] ([id number]) [address] [place] [address] 11941 #### 09401-7 #### [facility] ([id number]) [facility], [address] [address] Eosinophils/100 WBC (Bld) 2.6 % Normal [facility] Comment on above: Performed By: #### B ALCON, CBCA, 1987-08, #### [facility] ([id number]) [address] [place] [address] 25101 #### 93942-9 #### [facility] ([id number]) [address] [facility], [address] [place] [address] Erythrocyte distribution width (RBC) [Ratio] 15.5 % High 11.5-15.0 [facility] Comment on above: Performed By: #### B MP, CBCA, 49468-7 #### [facility] ([id number]) [address] [place] [address] 02102 #### 30244-7 #### [facility] ([id number]) [address], [address] [place] [address] Hematocrit (Bld) [Volume fraction] 36.8 % Low 39-49 [facility] Comment on above: Performed By: #### B ALCON, CBCA, 1987-08, 88683-5 #### [facility] ([id number]) [address] [place] [address] 48177 #### 18999-1 #### [facility] ([id number]) [address] [facility], [address] [place] [address] Hemoglobin (Bld) [Mass/Vol] 12.0 g/dL Low 13.0-17.0 [facility] Comment on above: Performed By: #### B ALCON, CBCA, 1987-08, 48191-3 #### [facility] ([id number]) [address] [place] [address] 82282 #### 25883-6 #### [facility] ([id number]) [address], [address] [place] [address] Lymphocytes (Bld) [#/Vol] 1.9 10*3/uL Normal 1.0-3.5 [facility] Comment on above: Performed By: #### Laura RONDON, CBCA, 1987-08, #### [facility] ([id number]) [address] [place] [address] 61091 #### 94092-6 #### [facility] ([id number]) [address], [address] [place] [address] Lymphocytes/100 WBC (Bld) 15.1 % Normal [facility] Comment on above: Performed By: #### Laura MP, CBCA, 1987-08, #### [facility] ([id number]) [address] [place] [address] 95177 #### 36418-7 #### [facility] ([id number]) [address] [facility], [address] [place] [address] MCH (RBC) [Entitic mass] 28.2 pg Normal 27-34 [facility] Comment on above: Performed By: #### Laura RONDON CBCA, 1987-08, 91088-6 #### [facility] ([id number]) [address] [place] [address] 98727 #### 61133-7 #### [facility] ([id number]) [address] [place] [address], [address] [place] [address] MCHC (RBC) [Mass/Vol] 32.7 g/dL Normal 32-36 [facility] Comment on above: Performed By: #### Laura RONDON CBCA, 1987-08, 14565-7 #### [facility] ([id number]) [address] [place] [address] 22657 #### 65376-9 #### [facility] ([id number]) [address] [facility], [address] [place] [address] MCV (RBC) [Entitic vol] 86 fL Normal 80-100 [facility] Comment on above: Performed By: #### Laura RONDON CBCA, 1987-08, 93379-0 #### [facility] ([id number]) [address] [place] [address] 86202 #### 58160-6 #### [facility] ([id number]) [address] [facility], [address] [place] [address] Monocytes (Bld) [#/Vol] 1.4 10*3/uL High 0-0.9 [facility] Comment on above: Performed By: #### Laura RONDON CBCA, 1987-08, 07620-3 #### [facility] ([id number]) [address] [place] [address] 02143 #### 13516-0 #### [facility] ([id number]) [address] [facility], [address] [place] [address] Monocytes/100 WBC (Bld) 11.2 % Normal [facility] Comment on above: Performed By: #### Laura RONDON, CBCA, 1987-08, 85607-9 #### [facility] ([id number]) [address] [place] [address] 39353 #### 30127-3 #### [facility] ([id number]) [address] [facility], [address] [place] [address] Neutrophils/100 WBC (Bld) 70.6 % Normal [facility] Comment on above: Performed By: #### Laura RONDON, CBCA, 1987-08, 57614-1 #### [facility] ([id number]) [address] [place] [address] 26046 #### 85217-9 #### [facility] ([id number]) [address] [facility], [address] [place] [address] Platelet mean volume (Bld) [Entitic vol] 7.6 fL Normal 7-12 [facility] Comment on above: Performed By: #### Laura RONDON, CBCA, 1987-08, 91645-6 #### [facility] ([id number]) [address] [place] [address] 48643 #### 39981-8 #### [facility] ([id number]) [address] [facility], [address] [place] [address] Platelets (Bld) [#/Vol] 325 10*3/uL Normal 150-450 [facility] Comment on above: Performed By: #### Laura RONDON, CBCA, 1987-08, 47607-3 #### [facility] ([id number]) [address] [place] [address] 47190 #### 41477-8 #### [facility] ([id number]) [address] [place] [address] RBC COUNT 4.27 X10E12/L Normal 4.10-5.70 [facility] Comment on above: Performed By: #### B ALCON, CBCA, 1987-08, 37741-5 #### [facility] ([id number]) [address] [place] [address] 60610 #### 62328-7 #### [facility] ([id number]) [address] [facility], [address] [place] [address] WBC (Bld) [#/Vol] 12.5 10*3/uL High 4.0-11.0 [facility] Comment on above: Performed By: #### B ALCON, CBCA, 1987-08, 56305-8 #### [facility] ([id number]) [address] [place] [address] 81528 #### 01750-4 #### [facility] ([id number]) [address] [facility], [address] [place] [address] CRP [Mass/Vol]on 04-19-2023 C REACTIVE PROTEIN 7.8 mg/dL High 0.000-0.744 [facility] Comment on above: Performed By: #### B MP, CBCA, 1987-08, 93945-0 #### [facility] ([id number]) [address] [place] [address] 31012 #### 08956-3 #### [facility] ([id number]) [address] [place] [address] ESR Photometric method (Bld) [Velocity]on 04-19-2023 ESR, ERYTHROCYTE SEDIMENTATION RATE 115 mm/h High 0-20 [facility] Comment on above: Performed By: #### B ALCON CBCA, 1987-08, 64103-2 #### [facility] ([id number]) [address] [place] [address] 32069 #### 36050-7 #### [facility] ([id number]) [address] [place] [address], [address] [place] [address] Natriuretic peptide.B prohor adrianne N-Terminal [Mass/Vol]on 04-19-2023 NT Pro BNP See Below Normal [facility] Comment on above: Result Comment: NOTE TEST RESULT FLAG UNIT REF.RANGE --- PRO B Natr Peptide 587 H pg/mL <125 Test Performed By: [facility] [address] [place] [address] Carbon Accountant: Tyler Valle III, M.D. CLIA #[id number] Performed By: #### B ALCON CBCA, 1987-08, 60844-2 #### [facility] ([id number]) [address] [place] [address] 59711 #### 66621-2 #### [facility] ([id number]) [address] [place] [address], [address] [place] [address] Basic Metabolic Profon 02-27 Anion gap [Moles/Vol] 11 mmol/L Normal -17 [facility] Comment on above: Performed By: #### S ED, CRP, BMP, CDP #### [facility] [address] [place] [address] Refrigeration Houseman: Jameson Aaron MD BUN/CRE Ratio 16 Normal - [facility] Comment on above: Performed By: #### S ED, CRP, BMP, CDP #### [facility] [address] [place], [place] [address] Refrigeration Houseman: Jameson Aaron MD Calcium [Mass/Vol] 9.4 mg/dL Normal 8.6-10.4 [facility] Comment on above: Performed By: #### S ED, CRP, BMP, CDP #### [facility] [address] [place], [place] [address] Refrigeration Houseman: Jameson Aaron MD Chloride [Moles/Vol] 98 mmol/L Normal 98-107 [facility] Comment on above: Performed By: #### S ED, CRP, BMP, CDP #### [facility] [address] [place] [address] [place] [place], [place] 5[address] Refrigeration Houseman: Jameson Aaron MD CO2 [Moles/Vol] 18 mmol/L Low 20-31 [facility] Comment on above: Performed By: #### S ED, CRP, BMP, CDP #### [facility] [address] [place] [address] [place] [place], [place] 1289283 Refrigeration Houseman: Jameson Aaron MD Creatinine [Mass/Vol] 2.7 mg/dL High 0.7-1.2 [facility] Comment on above: Performed By: #### S ED, CRP, BMP, CDP #### [facility] [address] [place] [address] [place] [address] Refrigeration Houseman: Jameson Aaron MD GFR/1.73 sq M.predicted among non-blacks MDRD (S/P/Bld) [Vol rate/Area] 26 mL/min/{1.73_m2} Low >60 [facility] Comment on above: Result Comment: These [...] #### S ED, CRP, BMP, CDP #### [facility] [address] [place] [address] [place] [address] Refrigeration Houseman: Jameson Aaron MD Glucose [Mass/Vol] 268 mg/dL High 70-99 [facility] Comment on above: Performed By: #### S ED, CRP, BMP, CDP #### [facility] [address] [place] [address] [place] [address] Refrigeration Houseman: Jameson Aaron MD Potassium [Moles/Vol] 5.2 mmol/L Normal 3.7-5.3 [facility] Comment on above: Performed By: #### S ED, CRP, BMP, CDP #### [address] [place] [address] Refrigeration Houseman: Jameson Aaron MD Sodium [Moles/Vol] 127 mmol/L Low 135-144 [facility] Comment on above: Performed By: #### S ED, CRP, BMP, CDP #### [address] [place] [address] Refrigeration Houseman: Jameson Aaron MD Urea nitrogen [Mass/Vol] 44 mg/dL High 8-23 [facility] Comment on above: Performed By: #### S ED, CRP, BMP, CDP #### [address] [place] [address] Refrigeration Houseman: Jameson Aaron MD C-Reactive Proteinon 023 CRP [Mass/Vol] 131.1 mg/L High 0.0-5.0 [facility] Comment on above: Performed By: #### S ED, CRP, BMP, CDP #### [address] [place] [address] Refrigeration Houseman: Jameson Aaron MD CBC with Diffon 02-27-2023 Abs. Basophil 0.06 k/uL Normal 0.00-0.20 [facility] Comment on above: Performed By: #### S ED, CRP, BMP, CDP #### [facility] [address] [place] [address] [place] [address] Refrigeration Houseman: Jameson Aaron MD Abs.Imm.Granulocyt e 0.11 k/uL Normal 0.00-0.30 [facility] Comment on above: Performed By: #### S ED, CRP, BMP, CDP #### [address] [place] [address] Refrigeration Houseman: Jameson Aaron MD Abs.Neutrophil (Seg) 6.83 k/uL Normal 1.50-8.10 [facility] Comment on above: Performed By: #### S ED, CRP, BMP, CDP #### [address] [place] [address]183 Refrigeration Houseman: Jameson Aaron MD Basophils/100 WBC (Bld) 1 % Normal 0-2 [facility] Comment on above: Performed By: #### S ED, CRP, BMP, CDP #### [address] [place] [address]183 Refrigeration Houseman: Jameson Aaron MD Eosinophils (Bld) [#/Vol] 0.22 10*3/uL Normal 0.00-0.44 [facility] Comment on above: Performed By: #### S ED, CRP, BMP, CDP #### [address] [place], [facility] Refrigeration Houseman: Jameson Aaron MD Eosinophils/100 WBC (Bld) 2 % Normal 1-4 [facility] Comment on above: Performed By: #### S ED, CRP, BMP, CDP #### [address] [place] [address] Refrigeration Houseman: Jameson Aaron MD Erythrocyte distribution width (RBC) [Ratio] 14.6 % High 11.8-14.4 [facility] Comment on above: Performed By: #### S ED, CRP, BMP, CDP #### [facility] [address] [place] [address] Dr[place], [place] 9[address]83 Refrigeration Houseman: Jameson Aaron MD Hematocrit (Bld) [Volume fraction] 41.9 % Normal 40.7-50.3 [facility] Comment on above: Performed By: #### S ED, CRP, BMP, CDP #### [facility] [address] [place] [address] Dr[place], [facility] Refrigeration Houseman: Jameson Aaron MD Hemoglobin (Bld) [Mass/Vol] 13.2 g/dL Normal 13.0-17.0 [facility] Comment on above: Performed By: #### S ED, CRP, BMP, CDP #### [address] [place], [place] [address]83 Refrigeration Houseman: Jameson Aaron MD Immature granulocytes/100 WBC (Bld) 1 % High 0 [facility] Comment on above: Performed By: #### S ED, CRP, BMP, CDP #### [address] [place], [place] [address]683 Refrigeration Houseman: Jameson Aaron MD Lymphocytes (Bld) [#/Vol] 1.83 10*3/uL Normal 1.10-3.70 [facility] Comment on above: Performed By: #### S ED, CRP, BMP, CDP #### [address] [place], [facility] Refrigeration Houseman: Jameson Aaron MD Lymphocytes/100 WBC (Bld) 18 % Low 24-43 [facility] Comment on above: Performed By: #### S ED, CRP, BMP, CDP #### [address] [place] [address] Refrigeration Houseman: Jameson Aaron MD MCH (RBC) [Entitic mass] 28.2 pg Normal 25.2-33.5 [facility] Comment on above: Performed By: #### S ED, CRP, BMP, CDP #### [facility] [address] [place], [facility] Refrigeration Houseman: Jameson Aaron MD MCHC (RBC) [Mass/Vol] 31.5 g/dL Normal 28.4-34.8 [facility] Comment on above: Performed By: #### S ED, CRP, BMP, CDP #### [address] [place], [facility] Refrigeration Houseman: Jameson Aaron MD MCV (RBC) [Entitic vol] 89.5 fL Normal 82.6-102.9 [facility] Comment on above: Performed By: #### S ED, CRP, BMP, CDP #### [address] [place] [address] Refrigeration Houseman: Jameson Aaron MD Monocytes (Bld) [#/Vol] 1.42 10*3/uL High 0.10-1.20 [facility] Comment on above: Performed By: #### S ED, CRP, BMP, CDP #### [address] [place], [facility] Refrigeration Houseman: Jameson Aaron MD Monocytes/100 WBC (Bld) 14 % High 3-12 [facility] Comment on above: Performed By: #### S ED, CRP, BMP, CDP #### [address] [place], [place] [address] Refrigeration Houseman: Jameson Aaron MD Neutrophil (Seg) 64 % Normal 36-65 [facility] Comment on above: Performed By: #### S ED, CRP, BMP, CDP #### [address] [place], [place] [address]83 Refrigeration Houseman: Jameson Aaron MD NRBC Automated 0.0 per 100 WBC Normal 0.0 [facility] Comment on above: Performed By: #### S ED, CRP, BMP, CDP #### [facility] [address] [place] [address] Dr[place], [place] 0427283 Refrigeration Houseman: Jameson Aaron MD Platelet mean volume (Bld) [Entitic vol] 9.4 fL Normal 8.1-13.5 [facility] Comment on above: Performed By: #### S ED, CRP, BMP, CDP #### [address] [place] [address] Refrigeration Houseman: Jameson Aaron MD Platelets (Bld) [#/Vol] 266 10*3/uL Normal 138-453 [facility] Comment on above: Performed By: #### S ED, CRP, BMP, CDP #### [address] [place], [place] [address]83 Refrigeration Houseman: Jameson Aaron MD RBC (Bld) [#/Vol] 4.68 10*6/uL Normal 4.21-5.77 [facility] Comment on above: Performed By: #### S ED, CRP, BMP, CDP #### [address] [place], [place] [address]883 Refrigeration Houseman: Jameson Aaron MD WBC (Bld) [#/Vol] 10.5 10*3/uL Normal 3.5-11.3 [facility] Comment on above: Performed By: #### S ED, CRP, BMP, CDP #### [address] [place], [facility] Refrigeration Houseman: Jameson Aaron MD Sedimentation Rateon 023 Sedimentation Rate 114 mm/Hr High 0-20 [facility] Comment on above: Performed By: #### S ED, CRP, BMP, CDP #### [address] [place], [place] [address]83 Refrigeration Houseman: Jameson Aaron MD FUNGAL CULTUREon 09-21-2022 Fungus (Mycology) Culture Final report Abnormal [facility] Comment on above: Performed By: #### C XFUN ####[facility] [id number] [place] [address]Dr. Eddie Lerner Fungus Stain Final report Normal [facility] Comment on above: Performed By: #### C XFUN ####[facility] [id number] [place] [id number]. Eddie Lerner Result 1 Comment Normal [facility] Comment on above: Result Comment: ANNEMARIE/ Calcofluor preparation: no fungus observed. Performed By: #### C XFUN ####[facility] [address] [place] [address]Dr. Eddie Lerner Result 1 Rosy albicans Abnormal [facility] Comment on above: Performed By: #### C XFUN ####[facility] [id number] [place], [place] [address]Dr. Eddie Lerner CULTURE OTHERon 08-23-2022 CULTURE OTHER Isolate 1 Enterococcus faecalis Light growth of ORGANISM 1 Enterococcus faecalis ANTIBIOTIC M.I.C RX STATUS Beta-Lactamase Neg NEG F Benzylpenicillin 0.5 S F Ampicillin <=2 S F Gentamicin High Level (synergy) SYN-R R F Streptomycin High Level (synergy) SYN-S S F Quinupristin/Dalfopristin 4 R F Linezolid 1 S F Vancomycin 1 S F Normal [facility] Comment on above: Performed By: #### O THCX ####[facility] [id number] [place], [place] [address]Dr. Eddie Lerner ACID FAST SMEAR AND CXon Acid Fast Smear Negative Normal [facility] Comment on above: Performed By: #### A FB ####[facility] [address] [place], [place] [address]Dr. Eddie Lerner [employer] Specimen Processing Tissue Grinding Normal [facility] Comment on above: Performed By: #### A FB ####[facility] [id number] [place], [place] [address]Dr. Eddie Lerner BNPon 08-20-2022 Natriuretic peptide B (Bld) [Mass/Vol] 648.0 pg/mL Normal <=900.0 [facility] Comment on above: Performed By: #### A 1C #### [facility] [address] [address] [address] Eddie Lerner CULTURE ANAEROBICon 08-21-19 23 CULTURE ANAEROBIC Culture Observations : NO GROWTH OF ANAEROBES AT 72 HOURS. Normal [facility] Comment on above: Performed By: #### A NACX ####[facility] [address] [address]Dr. Eddie Lerner GLYCOHEMOGLOBIN A1Con 2022 ADA RECOMMENDATION SEE BELOW Normal [facility] Comment on above: Result Comment: ADA RECOMMENDED LIMIT 4.0 - 6.0 ADA THERAPEUTIC TARGET < 7.0 ACTION SUGGESTED > 7.0 Performed By: #### R ENAL, LIPID, LIVER, TSH #### [facility] [address] [address] [address] Eddie Lerner Glucose [Mass/Vol] 235 mg/dL Normal [facility] Comment on above: Performed By: #### R ENAL, LIPID, LIVER, TSH #### [facility] [address] [address] [address] Eddie Lerner HbA1c (Bld) [Mass fraction] 9.8 % Critically high 4.5-6.2 [facility] Comment on above: Performed By: #### R ENAL, LIPID, LIVER, TSH #### [facility] [address] [address] [address] Eddie Lerner GRAM STAINon 08-20-2022 COMMENTS NO ORGANISMS OBSERVED Normal [facility] Comment on above: Performed By: #### G STAIN ####[facility] [address] [address]DrVaishali Lerner DIPHTHEROIDS Normal [facility] Comment on above: Performed By: #### G STAIN ####[facility] [address] [address]DrVaishali Lerner EPITHELIALS Normal [facility] Comment on above: Performed By: #### G STAIN ####[facility] [address] [address]DrVaishali Lerner FUNGAL ELEMENTS Normal [facility] Comment on above: Performed By: #### G STAIN ####[facility] [address] [id number]. Eddie Lerner GRAM NEG BACILLI Normal The [facility] Comment on above: Performed By: #### G STAIN ####[facility] [address] [phone]. Eddie Lerner GRAM NEG DIPPLOCOCCI Normal [facility] Comment on above: Performed By: #### G STAIN ####[facility] [address] [phone]. Eddie Lerner GRAM POS BACILLI Normal [facility] Comment on above: Performed By: #### G STAIN ####[facility] [address] [address]Dr. Eddie Lerner GRAM POSITIVE COCCI Normal [facility] Comment on above: Performed By: #### G STAIN ####[facility] [address] [address]Dr. Eddie Lerner GRAM STAIN SOURCE Lt Foot Bone Normal The [facility] Comment on above: Performed By: #### G STAIN ####[facility] [address] [address]Dr. Eddie Lerner GS_DIPTH Normal [facility] Comment on above: Performed By: #### G STAIN ####[facility] [address] [phone]. Eddie Lerner WBC RARE Normal [facility] Comment on above: Performed By: #### G STAIN ####[facility] [address] [phone]. Eddie Lerner LIPID PROFILEon 08-20-2022 CHOL-HDL RATIO NORM SEE BELOW Normal [facility] Comment on above: Result Comment: 3.3 - 4.4 LOW RISK 4.4 - 7.1 AVERAGE RISK 7.1 - 11.0 MODERATE RISK >11.0 HIGH RISK Performed By: #### A 1C #### [facility] [address] [address] [address] Eddie Lerner Cholesterol [Mass/Vol] 137 mg/dL Normal <=200 [facility] Comment on above: Performed By: #### A 1C #### [facility] [address] [place], [place] [address] Dr. Eddie Lerner Cholesterol in HDL [Mass/Vol] 54 mg/dL Normal 40-60 [facility] Comment on above: Performed By: #### A 1C #### [facility] [address] [place], [place] [address] Dr. Eddie Lerner Cholesterol in LDL [Mass/Vol] 63.2 mg/dL Normal [facility] Comment on above: Performed By: #### A 1C #### [facility] [address] [address] [address] Eddie Lerner Cholesterol.total/ Cholesterol in HDL [Mass ratio] 2.5 {ratio} Normal [facility] Comment on above: Performed By: #### A 1C #### [facility] [address] [address] [address] Eddie Lerner HDL NORMAL > or = 60 mg/dl - LO W CARDIOVASCULAR RISK <40 mg/dl - HIGH CARDIOVASCULAR RISK Normal [facility] Comment on above: Performed By: #### A 1C #### [facility] [address] [address] [address] Eddie Lerner LDL CALC NORMAL SEE BELOW Normal [facility] Comment on above: Result Comment: <100 mg/dl OPTIMAL 100 - 129 mg/dl NEAR OR ABOVE OPTIMAL 130 - 159 mg/dl BORDERLINE HIGH 160 - 189 mg/dl HIGH >190 mg/dl VERY HIGH Performed By: #### A 1C #### [facility] [address] [address] [address] Eddie Lerner Triglyceride [Mass/Vol] 99 mg/dL Normal <=150 [facility] Comment on above: Performed By: #### A 1C #### [facility] [address] [address] [address] Eddie Lerner VLDL CALC 19.8 mg/dL Normal [facility] Comment on above: Performed By: #### A 1C #### [facility] [address] [address] [address] Eddie Lerner LIVER PROFILEon 08-20-2022 Albumin [Mass/Vol] 2.8 g/dL Critically low 3.4-5.0 [facility] Comment on above: Performed By: #### A 1C #### [facility] [address] [place] [address] Dr. Eddie Lerner Albumin/Globulin [Mass ratio] 0.6 {ratio} Normal [facility] Comment on above: Performed By: #### A 1C #### [facility] [address] [place] [address] Dr. Eddie Lerner ALP [Catalytic activity/Vol] 87 U/L Normal 46-116 [facility] Comment on above: Performed By: #### A 1C #### [facility] [address] [place] [address] Dr. Eddie Lerner ALT [Catalytic activity/Vol] 49 U/L Normal 16-63 [facility] Comment on above: Performed By: #### A 1C #### [facility] [address] [place] [address] Dr. Eddie Lerner AST [Catalytic activity/Vol] 36 U/L Normal 15-37 [facility] Comment on above: Performed By: #### A 1C #### [facility] [address] [place] [address] Dr. Eddie Lerner BILI, CONJUGATED 0.1 mg/dL Normal 0.0-0.2 [facility] Comment on above: Performed By: #### A 1C #### [facility] [address] [place] [address] Dr. Eddie Lerner Bilirubin [Mass/Vol] 0.4 mg/dL Normal 0.2-1.0 [facility] Comment on above: Performed By: #### A 1C #### [facility] [address] [place] [address] Dr. Eddie Lerner Globulin (S) [Mass/Vol] 4.4 g/dL Normal [facility] Comment on above: Performed By: #### A 1C #### [facility] [address] [place] [address] Dr. Eddie Lerner Protein [Mass/Vol] 7.2 g/dL Normal 6.4-8.2 [facility] Comment on above: Performed By: #### A 1C #### [facility] [address] [address] [address] Eddie Lerner POINT OF CARE GLUCOSEon - Glucose [Mass/Vol] 107 mg/dL Critically high 74-106 [facility] Comment on above: Performed By: #### P OCGLUC #### [facility] [address] [address] [address] Eddie Lerner Glucose [Mass/Vol] 108 mg/dL Critically high 74-106 [facility] Comment on above: Performed By: #### P OCGLUC ####[facility] [address] [address]Dr. Eddie Lerner TSHon 08-20-2022 TSH 2.247 uIU/mL Normal 0.358-3.740 [facility] Comment on above: Performed By: #### A 1C #### [facility] [address] [address] [address] Eddie Lerner CBC AUTO DIFFon 08-15-2022 BASO # 0.0 103/ul Normal 0.0-0.1 [facility] Comment on above: Performed By: #### C BC ####[facility] [address] [address]DrVaishali Lerner Basophils/100 WBC (Bld) 0.4 % Normal 0.2-2.0 [facility] Comment on above: Performed By: #### C BC ####[facility] [address] [address]DrVaishali Lerner EO # 0.2 103/ul Normal 0.0-0.7 [facility] Comment on above: Performed By: #### C BC ####[facility] [address] [address]DrVaishali Lerner Eosinophils/100 WBC (Bld) 2.0 % Normal 0.9-7.0 [facility] Comment on above: Performed By: #### C BC ####[facility] [address] [address]DrVaishali Lerner Erythrocyte distribution width (RBC) [Ratio] 14.5 % Normal 11.0-15.0 [facility] Comment on above: Performed By: #### C BC ####[facility] [address] [address]Dr. Eddie Lerner Hematocrit (Bld) [Volume fraction] 40.5 % Critically low 42.0-54.0 [facility] Comment on above: Performed By: #### C BC ####[facility] [address] [address]DrVaishali Lerner Hemoglobin (Bld) [Mass/Vol] 13.1 g/dL Critically low 14.0-18.0 [facility] Comment on above: Performed By: #### C BC ####[facility] [address] [place], [place] [address]DrVaishali Lerner IG # 0.12 10e3/ul Critically high 0.00-0.03 [facility] Comment on above: Performed By: #### C BC ####[facility] [address] [place], [place] [address]DrVaishali Lerner IG % 1.2 % Critically high 0.0-0.5 [facility] Comment on above: Performed By: #### C BC ####[facility] [address] [place], [place] [address]DrVaishali Lerner LYMPH # 1.4 103/ul Normal 1.2-3.8 [facility] Comment on above: Performed By: #### C BC ####[facility] [address] [place], [place] [address]DrVaishali Lerner Lymphocytes/100 WBC (Bld) 13.6 % Critically low 20.5-60.0 [facility] Comment on above: Performed By: #### C BC ####[facility] [address] [place], [place] [address]DrVaishali Lerner MANUAL DIFF REQ NO Normal [facility] Comment on above: Performed By: #### C BC ####[facility] [address] [place], [place] [address]DrVaishali Lerner MCH (RBC) [Entitic mass] 29.8 pg Normal 25.9-34.0 [facility] Comment on above: Performed By: #### C BC ####[facility] [address] [address]Dr. Eddie Lerner MCHC (RBC) [Mass/Vol] 32.3 g/dL Normal 29.9-35.2 [facility] Comment on above: Performed By: #### C BC ####[facility] [address] [address]DrVaishali Lerner MCV (RBC) [Entitic vol] 92.0 fL Normal 80.0-94.0 [facility] Comment on above: Performed By: #### C BC ####[facility] [address] [place], [place] [address]DrVaishali Lerner MONO # 0.5 103/ul Normal 0.3-0.8 [facility] Comment on above: Performed By: #### C BC ####[facility] [address] [place], [place] [address]Dr. Eddie Lerner Monocytes/100 WBC (Bld) 4.8 % Normal 1.7-12.0 [facility] Comment on above: Performed By: #### C BC ####[facility] [address] [place], [place] [address]DrVaishali Lerner NEUT # 8.1 103/ul Critically high 1.4-6.5 [facility] Comment on above: Performed By: #### C BC ####[facility] [address] [place], [place] [address]Dr. Eddie Lerner Neutrophils/100 WBC (Bld) 78.0 % Critically high 43.0-75.0 [facility] Comment on above: Performed By: #### C BC ####[facility] [address] [place], [place] [address]DrVaishali Lerner Platelet mean volume (Bld) [Entitic vol] 8.6 fL Critically low 9.5-13.5 [facility] Comment on above: Performed By: #### C BC ####[facility] [address] [place], [place] [address]Dr. Eddie Lerner PLT 240 103/ul Normal 150-450 [facility] Comment on above: Performed By: #### C BC ####[facility] [address] [id number] Lerner RBC 4.40 106/ul Critically low 4.70-6.10 [facility] Comment on above: Performed By: #### C BC ####[facility] [address] [phone] Lerner WBC 10.3 103/ul Normal 4.0-11.0 [facility] Comment on above: Performed By: #### C BC ####[facility] [address] [id number] Lerner CRPon 08-15-2022 CRP [Mass/Vol] mg/L Normal <=1.0 [facility] Comment on above: Performed By: #### A 1C #### [facility] [address] [address] [address] Eddie Lerner PROF CHEM 8 (BAS METB)on Anion gap [Moles/Vol] 14.4 mmol/L Normal [facility] Comment on above: Performed By: #### A 1C #### [facility] [address] [address] [address] Eddie Lerner Calcium [Mass/Vol] 9.2 mg/dL Normal 8.5-10.1 [facility] Comment on above: Performed By: #### A 1C #### [facility] [address] [address] [address] Eddie Lerner Chloride [Moles/Vol] 101 mmol/L Normal 98-107 [facility] Comment on above: Performed By: #### A 1C #### [facility] [address] [address] [address] Eddie Lerner CO2 [Moles/Vol] 25.2 mmol/L Normal 21.0-32.0 [facility] Comment on above: Performed By: #### A 1C #### [facility] [address] [address] [address] Eddie Lerner Creatinine [Mass/Vol] 3.07 mg/dL Critically high 0.70-1.30 [facility] Comment on above: Performed By: #### A 1C #### [facility] [address] [address] [address] Eddie Lerner EGFR-AF TUNISIAN 25 mL/min/1.73m2 Critically low >=60 [facility] Comment on above: Performed By: #### A 1C #### [facility] [address] [address] [address] Eddie Lerner EGFR-NON AF TUNISIAN 21 mL/min/1.73m2 Critically low >=60 [facility] Comment on above: Performed By: #### A 1C #### [facility] [address] [place] [address] Dr. Eddie Lerner Glucose [Mass/Vol] 415 mg/dL Critically high 74-106 [facility] Comment on above: Performed By: #### A 1C #### [facility] [address] [address] [address] Eddie Lerner Potassium [Moles/Vol] 5.6 mmol/L Critically high 3.5-5.1 [facility] Comment on above: Performed By: #### A 1C #### [facility] [address] [place] [address] Dr. Eddie Lerner Sodium [Moles/Vol] 135 mmol/L Critically low 136-145 [facility] Comment on above: Performed By: #### A 1C #### [facility] [address] [place] [address] Dr. Eddie Lerner Urea nitrogen [Mass/Vol] 34.0 mg/dL Critically high 7.0-18.0 [facility] Comment on above: Performed By: #### A 1C #### [facility] [address] [place] [address] Dr. Eddie Lerner Urea nitrogen/Creatinin e [Mass ratio] 11.1 mg/mg Normal [facility] Comment on above: Performed By: #### A 1C #### [facility] [address] [place] [address] Dr. Eddie Lerner SED RATE WESTERGRENon 2022 SED RATE 59 mm/hr Critically high <=20 [facility] Comment on above: Performed By: #### S EDR ####[facility] [address] [address]Dr. Eddie Lerner BNPon 06-06-2022 Natriuretic peptide B (Bld) [Mass/Vol] 1342.0 pg/mL Critically high <=900.0 [facility] Comment on above: Performed By: #### B DYE RANGE TENDER ####[facility] [address] [address]DrVaishali Lerner CBC AUTO DIFFon 06-06-2022 BASO # 0.1 103/ul Normal 0.0-0.1 [facility] Comment on above: Performed By: #### A 1C #### [facility] [address] [address] [address] Eddie Lerner Basophils/100 WBC (Bld) 0.6 % Normal 0.2-2.0 [facility] Comment on above: Performed By: #### A 1C #### [facility] [address] [address] [address] Eddie Lerner EO # 0.2 103/ul Normal 0.0-0.7 [facility] Comment on above: Performed By: #### A 1C #### [facility] [address] [address] [address] Eddie Lerner Eosinophils/100 WBC (Bld) 1.8 % Normal 0.9-7.0 [facility] Comment on above: Performed By: #### A 1C #### [facility] [address] [address] [address] Eddie Lerner Erythrocyte distribution width (RBC) [Ratio] 15.2 % Critically high 11.0-15.0 [facility] Comment on above: Performed By: #### A 1C #### [facility] [address] [address] [address] Eddie Lerner Hematocrit (Bld) [Volume fraction] 39.0 % Critically low 42.0-54.0 [facility] Comment on above: Performed By: #### A 1C #### [facility] [address] [address] [address] Eddie Lerner Hemoglobin (Bld) [Mass/Vol] 12.4 g/dL Critically low 14.0-18.0 [facility] Comment on above: Performed By: #### A 1C #### [facility] [address] [address] [address] Eddie Lerner IG # 0.21 10e3/ul Critically high 0.00-0.03 [facility] Comment on above: Performed By: #### A 1C #### [facility] [address] [address] [address] Eddie Lerner IG % 1.6 % Critically high 0.0-0.5 [facility] Comment on above: Performed By: #### A 1C #### [facility] [address] [address] [address] Eddie Lerner LYMPH # 1.9 103/ul Normal 1.2-3.8 [facility] Comment on above: Performed By: #### A 1C #### [facility] [address] [address] [address] Eddie Lerner Lymphocytes/100 WBC (Bld) 13.8 % Critically low 20.5-60.0 [facility] Comment on above: Performed By: #### A 1C #### [facility] [address] [address] [address] Eddie Lerner MANUAL DIFF REQ NO Normal [facility] Comment on above: Performed By: #### A 1C #### [facility] [address] [address] [address] Eddie Lerner MCH (RBC) [Entitic mass] 27.8 pg Normal 25.9-34.0 [facility] Comment on above: Performed By: #### A 1C #### [facility] [address] [address] [address] Eddie Lerner MCHC (RBC) [Mass/Vol] 31.8 g/dL Normal 29.9-35.2 [facility] Comment on above: Performed By: #### A 1C #### [facility] [address] [address] [address] Eddie Lerner MCV (RBC) [Entitic vol] 87.4 fL Normal 80.0-94.0 [facility] Comment on above: Performed By: #### A 1C #### [facility] [address] [address] [address] Eddie Lerner MONO # 0.8 103/ul Normal 0.3-0.8 [facility] Comment on above: Performed By: #### A 1C #### [facility] [address] [address] [address] Eddie Lerner Monocytes/100 WBC (Bld) 5.9 % Normal 1.7-12.0 [facility] Comment on above: Performed By: #### A 1C #### [facility] [address] [address] [address] Eddie Lerner NEUT # 10.3 103/ul Critically high 1.4-6.5 [facility] Comment on above: Performed By: #### A 1C #### [facility] [address] [address] [address] Eddie Lerner Neutrophils/100 WBC (Bld) 76.3 % Critically high 43.0-75.0 [facility] Comment on above: Performed By: #### A 1C #### [facility] [address] [address] [address] Eddie Lerner Platelet mean volume (Bld) [Entitic vol] 10.2 fL Normal 9.5-13.5 [facility] Comment on above: Performed By: #### A 1C #### [facility] [address] [place] [address] Dr. Eddie Lerner PLT 288 103/ul Normal 150-450 [facility] Comment on above: Performed By: #### A 1C #### [facility] [address] [address] [address] Eddie Lerner RBC 4.46 106/ul Critically low 4.70-6.10 [facility] Comment on above: Performed By: #### A 1C #### [facility] [address] [address] [address] Eddie Lerner WBC 13.5 103/ul Critically high 4.0-11.0 [facility] Comment on above: Performed By: #### A 1C #### [facility] [address] [address] [address] Eddie Lerner GLYCOHEMOGLOBIN A1Con 2022 ADA RECOMMENDATION SEE BELOW Normal [facility] Comment on above: Result Comment: ADA RECOMMENDED LIMIT 4.0 - 6.0 ADA THERAPEUTIC TARGET < 7.0 ACTION SUGGESTED > 7.0 Performed By: #### A 1C #### [facility] [address] [address] [address] Eddie Lerner Glucose [Mass/Vol] 283 mg/dL Normal [facility] Comment on above: Performed By: #### A 1C #### [facility] [address] [place] [address] Dr. Eddie Lerner HbA1c (Bld) [Mass fraction] 11.5 % Critically high 4.5-6.2 [facility] Comment on above: Performed By: #### A 1C #### [facility] [address] [place] [address] Dr. Eddie Lerner LIPID PROFILEon 06-06-2022 CHOL-HDL RATIO NORM SEE BELOW Normal [facility] Comment on above: Result Comment: 3.3 - 4.4 LOW RISK 4.4 - 7.1 AVERAGE RISK 7.1 - 11.0 MODERATE RISK >11.0 HIGH RISK Performed By: #### R ENAL, LIPID, LIVER, TSH #### [facility] [address] [address] [address] Eddie Lerner Cholesterol [Mass/Vol] 152 mg/dL Normal <=200 [facility] Comment on above: Performed By: #### R ENAL, LIPID, LIVER, TSH #### [facility] [address] [address] [address] Eddie Lerner Cholesterol in HDL [Mass/Vol] 51 mg/dL Normal 40-60 [facility] Comment on above: Performed By: #### R ENAL, LIPID, LIVER, TSH #### [facility] [address] [address] [address] Eddie Lerner Cholesterol in LDL [Mass/Vol] 61.0 mg/dL Normal [facility] Comment on above: Performed By: #### R ENAL, LIPID, LIVER, TSH #### [facility] [address] [address] [address] Eddie Lerner Cholesterol.total/ Cholesterol in HDL [Mass ratio] 3.0 {ratio} Normal [facility] Comment on above: Performed By: #### R ENAL, LIPID, LIVER, TSH #### [facility] [address] [address] [address] Eddie Lerner HDL NORMAL > or = 60 mg/dl - LO W CARDIOVASCULAR RISK <40 mg/dl - HIGH CARDIOVASCULAR RISK Normal [facility] Comment on above: Performed By: #### R ENAL, LIPID, LIVER, TSH #### [facility] [address] [address] [address] Eddie Lerner LDL CALC NORMAL SEE BELOW Normal [facility] Comment on above: Result Comment: <100 mg/dl OPTIMAL 100 - 129 mg/dl NEAR OR ABOVE OPTIMAL 130 - 159 mg/dl BORDERLINE HIGH 160 - 189 mg/dl HIGH >190 mg/dl VERY HIGH Performed By: #### R ENAL, LIPID, LIVER, TSH #### [facility] [address] [address] [address] Eddie Lerner Triglyceride [Mass/Vol] 200 mg/dL Critically high <=150 [facility] Comment on above: Performed By: #### R ENAL, LIPID, LIVER, TSH #### [facility] [address] [address] [address] Eddie Lerner VLDL CALC 40.0 mg/dL Normal [facility] Comment on above: Performed By: #### R ENAL, LIPID, LIVER, TSH #### [facility] [address] [address] [address] Eddie Lerner LIVER PROFILEon 06-06-2022 Albumin [Mass/Vol] 2.6 g/dL Critically low 3.4-5.0 [facility] Comment on above: Performed By: #### R ENAL, LIPID, LIVER, TSH #### [facility] [address] [place] [address] Dr[address] Eddie Lerner Albumin/Globulin [Mass ratio] 0.6 {ratio} Normal [facility] Comment on above: Performed By: #### R ENAL, LIPID, LIVER, TSH #### [facility] [address] [address] [address] Eddie Lerner ALP [Catalytic activity/Vol] 120 U/L Critically high 46-116 [facility] Comment on above: Performed By: #### R ENAL, LIPID, LIVER, TSH #### [facility] [address] [address] [address] Eddie Lerner ALT [Catalytic activity/Vol] 22 U/L Normal 16-63 [facility] Comment on above: Performed By: #### R ENAL, LIPID, LIVER, TSH #### [facility] [address] [address] [address] Eddie Lerner AST [Catalytic activity/Vol] 15 U/L Normal 15-37 [facility] Comment on above: Performed By: #### R ENAL, LIPID, LIVER, TSH #### [facility] [address] [address] [address] Eddie Lerner BILI, CONJUGATED 0.1 mg/dL Normal 0.0-0.2 [facility] Comment on above: Performed By: #### R ENAL, LIPID, LIVER, TSH #### [facility] [address] [address] [address] Eddie Lerner Bilirubin [Mass/Vol] 0.3 mg/dL Normal 0.2-1.0 [facility] Comment on above: Performed By: #### R ENAL, LIPID, LIVER, TSH #### [facility] [address] [address] [address] Eddie Lerner Globulin (S) [Mass/Vol] 4.7 g/dL Normal [facility] Comment on above: Performed By: #### R ENAL, LIPID, LIVER, TSH #### [facility] [address] [address] [address] Eddie Lerner Protein [Mass/Vol] 7.3 g/dL Normal 6.4-8.[address] [facility] Comment on above: Performed By: #### R ENAL, LIPID, LIVER, TSH #### [facility] [address] [address] [address] Eddie Lerner RENAL FUNCTION PANELon 06-06 Calcium [Mass/Vol] 9.0 mg/dL Normal 8.5-10.[address] [facility] Comment on above: Performed By: #### R ENAL, LIPID, LIVER, TSH #### [facility] [address] [address] [address] Eddie Lerner Chloride [Moles/Vol] 96 mmol/L Critically low 98-107 [facility] Comment on above: Performed By: #### R ENAL, LIPID, LIVER, TSH #### [facility] [address] [place] [address] Dr. Eddie Lerner CO2 [Moles/Vol] 21.8 mmol/L Normal 21.0-32.0 [facility] Comment on above: Performed By: #### R ENAL, LIPID, LIVER, TSH #### [facility] [address] [place] [address] Dr. Eddie Lerner Creatinine [Mass/Vol] 2.38 mg/dL Critically high 0.70-1.30 [facility] Comment on above: Performed By: #### R ENAL, LIPID, LIVER, TSH #### [facility] [address] [place] [address] Dr. Eddie Lerner EGFR-AF TUNISIAN 34 mL/min/1.73m2 Critically low >=60 [facility] Comment on above: Performed By: #### R ENAL, LIPID, LIVER, TSH #### [facility] [address] [place] [address] Dr. Eddie Lerner EGFR-NON AF TUNISIAN 28 mL/min/1.73m2 Critically low >=60 [facility] Comment on above: Performed By: #### R ENAL, LIPID, LIVER, TSH #### [facility] [address] [address] [address] Eddie Lerner Glucose [Mass/Vol] 523 mg/dL Critically high 74-106 [facility] Comment on above: Performed By: #### R ENAL, LIPID, LIVER, TSH #### [facility] [address] [address] [address] Eddie Lerner Phosphate [Mass/Vol] 4.1 mg/dL Normal 2.6-4.7 [facility] Comment on above: Performed By: #### R ENAL, LIPID, LIVER, TSH #### [facility] [address] [place] [address] Dr. Eddie Lerner Potassium [Moles/Vol] 4.6 mmol/L Normal 3.5-5.1 [facility] Comment on above: Performed By: #### R ENAL, LIPID, LIVER, TSH #### [facility] [address] [place] [address] Dr. Eddie Lerner Sodium [Moles/Vol] 128 mmol/L Critically low 136-145 [facility] Comment on above: Performed By: #### R ENAL, LIPID, LIVER, TSH #### [facility] [address] [place] [address] Dr. Eddie Lerner Urea nitrogen [Mass/Vol] 28.0 mg/dL Critically high 7.0-18.0 [facility] Comment on above: Performed By: #### R ENAL, LIPID, LIVER, TSH #### [facility] [address] [place] [address] Dr. Eddie Lerner TSHon 06-06-2022 TSH 1.308 uIU/mL Normal 0.358-3.740 [facility] Comment on above: Performed By: #### R ENAL, LIPID, LIVER, TSH #### [facility] [address] [place] [address] Dr. Eddie Lerner UA RANDOMon 06-06-2022 Bilirubin Ql (U) Negative Normal NEGATIVE [facility] Comment on above: Performed By: #### U A #### [facility] [address] [place] [address] Dr. Eddie Lerner Clarity (U) CLEAR Normal CLEAR [facility] Comment on above: Performed By: #### U A #### [facility] [address] [place] [address] Dr. Eddie Lerner Color (U) LT. YELLOW Normal YELLOW [facility] Comment on above: Performed By: #### U A #### [facility] [address] [place] [address] Dr. Eddie Lerner Glucose Ql (U) >1000 Abnormal NEGATIVE [facility] Comment on above: Performed By: #### U A #### [facility] [address] [place] [address] Dr. Eddie Lerner Hemoglobin Ql (U) TRACE-INTACT Abnormal NEGATIVE [facility] Comment on above: Performed By: #### U A #### [facility] [address] [place] [address] Dr. Eddie Lerner Ketones Ql (U) Negative Normal NEGATIVE [facility] Comment on above: Performed By: #### U A #### [facility] [address] [place] [address] Dr. Eddie Lerner LEUKOCYTES Negative Normal NEGATIVE [facility] Comment on above: Performed By: #### U A #### [facility] [address] [place] [address] Dr. Eddie Lerner Nitrite Ql (U) Negative Normal NEGATIVE [facility] Comment on above: Performed By: #### U A #### [facility] [address] [place] [address] Dr. Eddie Lerner pH (U) 6.5 [pH] Normal 5-9 [facility] Comment on above: Performed By: #### U A #### [facility] [address] [place] [address] Dr. Eddie Lerner SPEC GRAVITY 1.010 Normal 1.005-<=1.025 [facility] Comment on above: Performed By: #### U A #### [facility] [address] [place] [address] Dr. Eddie Lerner UA PROTEIN 100 mg/dl Abnormal NEGATIVE/ TRACE [facility] Comment on above: Performed By: #### U A #### [facility] [address] [place] [address] Dr. Eddie Lerner Urobilinogen Qn (U) 0.2 {Chaya'U}/dL Normal 0.2 - 1.0 [facility] Comment on above: Performed By: #### U A #### [facility] [address] [place] [address] Dr. Eddie Lerner VITAMIN D 25 OHon 06-06-2022 VIT D 25-OH 13.9 ng/mL Normal [facility] Comment on above: Performed By: #### V ITAD ####[facility] [address] [place] [address]Dr. Eddie Lerner VIT D RANGES SEE BELOW Normal [facility] Comment on above: Result Comment: <20 ng/mL Vit D deficient 20 - <30 ng/mL Vit D insufficient 30 - 100 ng/mL Vit D sufficient >100 ng/mL Potential Toxicity Performed By: #### V ITAD ####[facility] [address] [place] [address]Dr. Eddie Lerner ACID FAST SMEAR AND CXon Acid Fast Culture Negative Normal [facility] Comment on above: Result Comment: No a wendy fast bacilli isolated after 6 weeks. Performed By: #### A FB ####[facility] [address] [place] [address]Dr. Eddie Lerner Acid Fast Smear Negative Normal [facility] Comment on above: Performed By: #### A FB ####[facility] [address] [place] [address]Dr. Eddie Lerner [employer] Specimen Processing Tissue Grinding Normal [facility] Comment on above: Performed By: #### A FB ####[facility] [address] [place] [address]Dr. Eddie Lerner FUNGAL CULTUREon 01-19-2022 Fungus (Mycology) Culture Final report Normal [facility] Comment on above: Performed By: #### R ENAL, LIPID, LIVER, TSH #### [facility] [address] [address] [address] Eddie Lerner Fungus Stain Final report Normal [facility] Comment on above: Performed By: #### R ENAL, LIPID, LIVER, TSH #### [facility] [address] [place], [place] [address] Dr. Eddie Lerner Result 1 Comment Normal [facility] Comment on above: Result Comment: ANNEMARIE/ Calcofluor preparation: no fungus observed. Performed By: #### R ENAL, LIPID, LIVER, TSH #### [facility] [address] [place], [place] [address] Dr. Eddie Lerner Result Comment: No y east or mold isolated after 4 weeks. POINT OF CARE GLUCOSEon 12-28 Glucose [Mass/Vol] 177 mg/dL Critically high -106 [facility] Comment on above: Performed By: #### A 1C #### [facility] [address] [address] [address] Eddie Lerner Glucose [Mass/Vol] 200 mg/dL Critically high [facility]106 [facility] Comment on above: Performed By: #### P OCGLUC ####[facility] [address] [place], [place] [address]Dr[address] Eddie Lerner Covid-19 PCR (CVDTB)on 12-28 SARS-CoV-2 (COVID-19) RNA SUDHA+probe Ql (Unsp spec) Not detected Normal NOT DETECTED [facility] Comment on above: Result Comment: This test is not yet approved or cleared by the [place] FDA. When there are no FDA-approved or cleared tests available, and other criteria are met, FDA can make tests available under an emergency access mechanism called an Emergency Use Authorization (EUA). The EUA for this test is supported by the Medical Lab Director of Health and Human Service's (HHS's) [...] SARS-CoV-2. Performed By: #### A 1C #### [facility] [address] [place] [address] Dr. Eddie Lerner PROF CHEM 8 (BAS METB)on Anion gap [Moles/Vol] 15.0 mmol/L Normal [facility] Comment on above: Performed By: #### R ENAL, LIPID, LIVER, TSH #### [facility] [address] [place] [address] Dr. Eddie Lerner Calcium [Mass/Vol] 9.3 mg/dL Normal 8.5-10.1 [facility] Comment on above: Performed By: #### R ENAL, LIPID, LIVER, TSH #### [facility] [address] [place] [address] Dr. Eddie Lerner Chloride [Moles/Vol] 105 mmol/L Normal 98-107 [facility] Comment on above: Performed By: #### R ENAL, LIPID, LIVER, TSH #### [facility] [address] [place] [address] Dr. Eddie Lerner CO2 [Moles/Vol] 22.1 mmol/L Normal 21.0-32.0 [facility] Comment on above: Performed By: #### R ENAL, LIPID, LIVER, TSH #### [facility] [address] [place] [address] Dr. Eddie Lerner Creatinine [Mass/Vol] 2.29 mg/dL Critically high 0.70-1.30 [facility] Comment on above: Performed By: #### R ENAL, LIPID, LIVER, TSH #### [facility] [address] [address] [address] Eddie Lerner EGFR-AF TUNISIAN 35 mL/min/1.73m2 Critically low >=60 [facility] Comment on above: Performed By: #### R ENAL, LIPID, LIVER, TSH #### [facility] [address] [place] [address] Dr. Eddie Lerner EGFR-NON AF TUNISIAN 29 mL/min/1.73m2 Critically low >=60 [facility] Comment on above: Performed By: #### R ENAL, LIPID, LIVER, TSH #### [facility] [address] [address] [address] Eddie Lerner Glucose [Mass/Vol] 115 mg/dL Critically high 74-106 [facility] Comment on above: Performed By: #### R ENAL, LIPID, LIVER, TSH #### [facility] [address] [address] [address] Eddie Lerner Potassium [Moles/Vol] 5.1 mmol/L Normal 3.5-5.1 [facility] Comment on above: Performed By: #### R ENAL, LIPID, LIVER, TSH #### [facility] [address] [address] [address] Eddie Lerner Sodium [Moles/Vol] 137 mmol/L Normal 136-145 [facility] Comment on above: Performed By: #### R ENAL, LIPID, LIVER, TSH #### [facility] [address] [address] [address] Eddie Lerner Urea nitrogen [Mass/Vol] 26.0 mg/dL Critically high 7.0-18.0 [facility] Comment on above: Performed By: #### R ENAL, LIPID, LIVER, TSH #### [facility] [address] [address] [address] Eddie Lerner Urea nitrogen/Creatinin e [Mass ratio] 11.4 mg/mg Normal [facility] Comment on above: Performed By: #### R ENAL, LIPID, LIVER, TSH #### [facility] [address] [address] [address] Eddie Lerner TISSUE CULTUREon 01-08-2022 Anaerobic Culture, Extended Incubation Final report Normal [facility] Comment on above: Performed By: #### C XTISSU ####[facility] [address] [place] [address]Dr. Eddie Lerner Result 1 Comment Normal [facility] Comment on above: Result Comment: Diph theroids, not Corynebacterium jeikeium Light growth Susceptibility not normally performed on this organism. Performed By: #### C XTISSU ####[facility] [address] [place] [address]Dr. Eddie Lerner Result Comment: No a naerobes recovered. Tissue Culture Final report Abnormal [facility] Comment on above: Performed By: #### C XTISSU ####[facility] [address] [place] [address]Dr. Eddie Lerner POINT OF CARE GLUCOSEon 08- Glucose [Mass/Vol] 89 mg/dL Normal 74-106 [facility] Comment on above: Performed By: #### R ENAL, LIPID, LIVER, TSH #### [facility] [address] [address] [address] Eddie Lerner Glucose [Mass/Vol] 85 mg/dL Normal 74-[address] [facility] Comment on above: Performed By: #### P OCGLUC ####[facility] [address] [place] [address]Dr. Eddie Lerner GRAM STAINon 12-21-2021 COMMENTS NO ORGANISMS OBSERVED Normal [facility] Comment on above: Performed By: #### R ENAL, LIPID, LIVER, TSH #### [facility] [address] [address] [address] Eddie Lerner DIPHTHEROIDS Normal [facility] Comment on above: Performed By: #### R ENAL, LIPID, LIVER, TSH #### [facility] [address] [address] [address] Eddie Lerner EPITHELIALS Normal [facility] Comment on above: Performed By: #### R ENAL, LIPID, LIVER, TSH #### [facility] [address] [address] [address] Eddie Lerner FUNGAL ELEMENTS Normal [facility] Comment on above: Performed By: #### R ENAL, LIPID, LIVER, TSH #### [facility] [address] [address] [address] Eddie PRINGLE NEG BACILLI Normal [facility] Comment on above: Performed By: #### R ENAL, LIPID, LIVER, TSH #### [facility] [address] [address] [address] Eddie PRINGLE NEG DIPPLOCOCCI Normal [facility] Comment on above: Performed By: #### R ENAL, LIPID, LIVER, TSH #### [facility] [address] [address] [address] Eddie Lerner GRAM POS BACILLI Normal [facility] Comment on above: Performed By: #### R ENAL, LIPID, LIVER, TSH #### [facility] [address] [address] [address] Eddie Lerner GRAM POSITIVE COCCI Normal [facility] Comment on above: Performed By: #### R ENAL, LIPID, LIVER, TSH #### [facility] [address] [address] [address] Eddie Lerner GRAM STAIN SOURCE Lt 1st Metatarsal Bone [facility] Comment on above: Performed By: #### R ENAL, LIPID, LIVER, TSH #### [facility] [address] [address] [address] Eddie Lerner GS_DIPTH [facility] Comment on above: Performed By: #### R ENAL, LIPID, LIVER, TSH #### [facility] [address] [address] [address] Eddie Lerner WBC RARE Normal [facility] Comment on above: Performed By: #### R ENAL, LIPID, LIVER, TSH #### [facility] [address] [address] [address] Eddie Lerner POINT OF CARE GLUCOSEon 11-28 Glucose [Mass/Vol] 148 mg/dL Critically high 74-106 [facility] Comment on above: Performed By: #### A 1C #### [facility] [address] [address] [address] Eddie Lerner Glucose [Mass/Vol] 100 mg/dL Normal 74-106 [facility] Comment on above: Performed By: #### P OCGLUC ####[facility] [address] [place] [address]Dr. Eddie Lerner Glucose [Mass/Vol] 85 mg/dL Normal 74-106 [facility] Comment on above: Performed By: #### P OCGLUC ####[facility] [address] [place] [address]Dr. Eddie Lerner Glucose [Mass/Vol] 83 mg/dL Normal 74-106 [facility] Comment on above: Performed By: #### R ENAL, LIPID, LIVER, TSH #### [facility] [address] [place], [place] [address] Dr. Eddie Lerner Covid-19 PCR ([facility])on 11-28 SARS-CoV-2 (COVID-19) RNA SUDHA+probe Ql (Unsp spec) Not detected Normal NOT DETECTED [facility] Comment on above: Result Comment: This test is not yet approved or cleared by the [place] FDA. When there are no FDA-approved or cleared tests available, and other criteria are met, FDA can make tests available under an emergency access mechanism called an Emergency Use Authorization (EUA). The EUA for this test is supported by the Medical Lab Director of Health and Human Service's (HHS's) [...] with SARS-CoV-2. Performed By: #### C VDTBH ####[facility] [address] [place], [place] [address]IeDr. Eddie Lerner PROF CHEM 8 (BAS METB)on Anion gap [Moles/Vol] 11.5 mmol/L Normal [facility] Comment on above: Performed By: #### R ENAL, LIPID, LIVER, TSH #### [facility] [address] [place], [place] [address] Dr. Eddie Lerner Calcium [Mass/Vol] 9.0 mg/dL Normal 8.5-10.[address] [facility] Comment on above: Performed By: #### R ENAL, LIPID, LIVER, TSH #### [facility] [address] [place], [place] [address] Dr. Eddie Lerner Chloride [Moles/Vol] 102 mmol/L Normal 98-107 [facility] Comment on above: Performed By: #### R ENAL, LIPID, LIVER, TSH #### [facility] [address] [address] [address] Eddie Lerner CO2 [Moles/Vol] 24.8 mmol/L Normal 21.0-32.0 [facility] Comment on above: Performed By: #### R ENAL, LIPID, LIVER, TSH #### [facility] [address] [address] [address] Eddie Lerner Creatinine [Mass/Vol] 2.19 mg/dL Critically high 0.70-1.30 [facility] Comment on above: Performed By: #### R ENAL, LIPID, LIVER, TSH #### [facility] [address] [address] [address] Eddie Lerner EGFR-AF TUNISIAN 37 mL/min/1.73m2 Critically low >=60 [facility] Comment on above: Performed By: #### R ENAL, LIPID, LIVER, TSH #### [facility] [address] [address] [address] Eddie Lerner EGFR-NON AF TUNISIAN 31 mL/min/1.73m2 Critically low >=60 [facility] Comment on above: Performed By: #### R ENAL, LIPID, LIVER, TSH #### [facility] [address] [address] [address] Eddie Lerner Glucose [Mass/Vol] 330 mg/dL Critically high 74-106 [facility] Comment on above: Performed By: #### R ENAL, LIPID, LIVER, TSH #### [facility] [address] [address] [address] Eddie Lerner Potassium [Moles/Vol] 5.3 mmol/L Critically high 3.5-5.1 [facility] Comment on above: Performed By: #### R ENAL, LIPID, LIVER, TSH #### [facility] [address] [address] [address] Eddie Lerner Sodium [Moles/Vol] 133 mmol/L Critically low 136-145 [facility] Comment on above: Performed By: #### R ENAL, LIPID, LIVER, TSH #### [facility] [address] [address] [address] Eddie Lerner Urea nitrogen [Mass/Vol] 25.0 mg/dL Critically high 7.0-18.0 [facility] Comment on above: Performed By: #### R ENAL, LIPID, LIVER, TSH #### [facility] [address] [address] [address] Eddie Lerner Urea nitrogen/Creatinin e [Mass ratio] 11.4 mg/mg Normal [facility] Comment on above: Performed By: #### R ENAL, LIPID, LIVER, TSH #### [facility] [address] [address] [address] Eddie Lerner Albumin [Mass/volume] in Ser um or Plasmaon 08-25-2020 Albumin [Mass/Vol] 2.0 g/dL 3.2-5.5 [facility] Basophils Auto (Bld) [#/Vol] on 08-25-2020 [...] 08-25-2020 WBC (Bld) [#/Vol] 12.6 10*3/uL 4.5-11.0 [facility] Blood polychromasia detectio n by light microscopyon 08-25-2020 Polychromasia LM Ql (Bld) Slight [facility] Creatinine and Glomerular fi ltration rate.predicted panel (S/P/Bld)on 08-25-2020 Creatinine [Mass/Vol] 4.06 mg/dL 0.64-1.27 [facility] Eosinophils Auto (Bld) [#/Vo l]on [...] [M ass/Vol]on 08-25-2020 Glucose [Mass/Vol] 122 mg/dL [facility] Comment on above: Random Glucose Refer ence Range is dependent on time and content of last meal. Glucose of more than 200 mg/dL in a nonstressed, ambulatory subject supports the diagnosis of Diabetes Mellitus. Hematocrit Auto (Bld) [Volum e fraction]on 08-25-2020 [...] [facility] Plate[facility] Estimate Normal Normal [facility] Platelet Morphology Comment Normal Normal [facility] [...] [#/Vol]on RBC (Bld) [#/Vol] 3.85 10*6/uL 3.90-5.60 [facility] RBC morphologyon 08-25-2020 RBC morphology finding Nom (Bld) N/A [facility] Serum or plasma calcium joel urement (mass/volume)on 08-25-2020 Calcium [Mass/Vol] 8.7 mg/dL 8.2-10.2 [facility] Serum or plasma chloride faraz surement (moles/volume)on 08-25-2020 Chloride [Moles/Vol] 99 mmol/L 95-114 [facility] Serum or plasma glucose joel urement (mass/volume)on 08-25-2020 Glucose [Mass/Vol] 113 mg/dL 70-100 [facility] Comment on above: ADA recommended refe [...] (moles/volume)on 08-25-2020 Sodium [Moles/Vol] 135 mmol/L 136-146 [facility] Serum or plasma total carbon dioxide measurement (moles/volume)on 08-25-2020 CO2 [Moles/Vol] 26.2 mmol/L 22.0-30.0 [facility] Serum or plasma urea nitroge n measurement (mass/volume)on 08-25-2020 Urea nitrogen [Mass/Vol] 75 mg/dL 9-23 [facility] Erythrocyte basophilic stipp ling detectionon 08-24-2020 Basophilic stippling LM Ql (Bld) Slight [facility] Laboratory - Hematology and Cell countson 08-24-2020 Band form neutrophils/100 WBC (Bld) 1 % 0-5 [facility] Lymphocytes/100 WBC Auto (Bl d)on 08-24-2020 Lymphocytes/100 WBC (Bld) 6 % 18-42 [facility] Metamyelocytes/100 WBC Manua l cnt (Bld)on 08-24-2020 Metamyelocytes/100 WBC (Bld) 1 % 0-0 [facility] Monocytes/100 WBC Manual cnt (Bld)on 08-24-2020 Monocytes/100 WBC (Bld) 4 % 2-11 [facility] Myelocytes/100 WBC Manual cn t (Bld)on 08-24-2020 Myelocytes/100 WBC (Bld) 1 % 0-0 [facility] No Panel Informationon 08-24 [place] Slight [facility] Segmented neutrophils/100 WB C Manual cnt (Bld)on 08-24-2020 Segmented neutrophils/100 WBC (Bld) 87 % 50-70 [facility] No Panel Informationon 08-23 Bedside Glucose #[address]/rn [facility] Bedside Glucose #3 Comment Cleaned meter [facility] [facility] Serum nuclear antibody titer on 08-23-2020 Nuclear Ab (S) [Titer] Negative [facility] Comment on above: Negative <1:80 Borde rline 1:80 Positive >1:80Performed at: [employer] [facility] [address] [id number] Director: Mata Brian PhD, Phone: [phone] Serum or plasma rheumatoid f actor measurement (units/volume)on 08-23-2020 Rheumatoid factor Qn 20.6 [IU]/mL [facility] Comment on above: Performed at: [employer] [facility] [address] [id number] Director: Mata Brian PhD, Phone: [phone] CT biopsyon 08-22-2020 Transferrin [Mass/Vol] 104 mg/dL 180-380 [facility] Ferritin [Mass/volume] in Se rum or Plasmaon 08-22-2020 Ferritin [Mass/Vol] 334.8 ng/mL 23.9-336.2 [facility] Iron [Mass/volume] in Serum or Plasmaon 08-22-2020 Iron [Mass/Vol] 17 ug/dL 40-160 [facility] Iron binding capacity [Mass/ volume] in Serum or Plasmaon 08-22-2020 Iron binding capacity [Mass/Vol] 146 ug/dL 255-450 [facility] Iron saturation [Mass Fracti on] in Serum or Plasmaon 08-22-2020 Iron saturation [Mass fraction] 11.0 % 20-50 [facility] Creatine kinase [Enzymatic a ctivity/volume] in Serum or Plasmaon 08-21-2020 CK [Catalytic activity/Vol] 45 U/L 22-269 [facility] No Panel Informationon 08-21 Dohle Bodies Slight [facility] Serum or plasma cardiac trop onin I measurement (mass/volume)on 08-21-2020 Troponin I.cardiac [Mass/Vol] ng/mL 0-0.02 [facility] Comment on above: HÉCTOR MA Cut off value > or equal to 0.03 ng/mL in conjunction with clinical conditions of myocardial infarction.([email or web address]/guidelines) Serum or plasma creatine kin ase MB (CKMB)/total creatine kinase (CK) ratio by calculaon 08-21-2020 CK.MB Calc [Catalytic fraction] 5.1 % 0.00-2.50 [facility] Serum or plasma creatine kin ase MB measurement (mass/volume)on 08-21-2020 CK.MB [Mass/Vol] 2.3 ng/mL 0.6-6.3 [facility] Erythrocyte sedimentation ra te by Photometric methodon 08-20-2020 ESR Photometric method (Bld) [Velocity] 108 mm/hr 0-19 [facility] Serum or plasma C reactive p rotein measurement (mass/volume)on 08-20-2020 CRP [Mass/Vol] 19.4 mg/dL 0.0-1.0 [facility] ABO and Rh group post transf usion reaction Nom (Bld)on 08-19-2020 Microscopic observation Gram stain Nom (Unsp spec) [facility] Glucose mean value [Mass/vol ume] in Blood Estimated from glycated hemoglobinon 08-19-2020 Average glucose Estimated from glycated hemoglobin (Bld) [Mass/Vol] 298 mg/dL [facility] Hemoglobin A1c percentageon 08-19-2020 HbA1c (Bld) [Mass fraction] 12.0 % 4.3-5.6 [facility] Comment on above: Increased risk for d iabetes: 5.7 - 6.4diabetes: >6.4glycemic control for adults with diabetes: <7.0 Laboratory - Chemistry and C hemistry - challengeon 08-19-2020 Magnesium [Mass/Vol] 2.0 mg/dL 1.6-2.6 [facility] No Panel Informationon 08-19 25-Hydroxy Vitamin D Total 24.6 ng/mL 30-100 [facility] Comment on above: VITAMIN D STATUS 25( [place])VITAMIN D RANGE (ng/mL) Deficient <20 Insufficient 20 to <30Sufficient 30 to 100Reference: Aki MF,Oriana NGUYEN, Elli JONAS, et al. Evaluation,treatment, and prevention of vitamin D deficiency; an Endocrine Society clinical practice guideline. JCEM. 2010; 96(7):1911-30. Activated partial thrombopla stin time (aPTT) in platelet poor plasma by coagulation aon 08-18-2020 aPTT Coag (PPP) [Time] 36.9 s 25.1-36.5 [facility] Albumin [Mass/volume] in Ser um or Plasmaon 08-18-2020 Albumin [Mass/Vol] 2.7 g/dL 3.2-5.5 [facility] Bacterial blood cultureon Bacteria identified Cx Nom (Bld) NO GROWTH 5 DAYS [facility] Basophils Auto (Bld) [#/Vol] on 08-18-2020 Basophils (Bld) [#/Vol] 0.0 10*3/uL 0.0-0.2 [facility] Basophils/100 WBC Auto (Bld) on 08-18-2020 Basophils/100 WBC (Bld) 0.3 % [facility] Beta-hydroxybutyric acid faraz surementon 08-18-2020 Beta hydroxybutyrate [Mass/Vol] 0.44 mmol/L 0.02-0.27 [facility] Blood hemoglobin measurement (mass/volume)on 08-18-2020 Hemoglobin (Bld) [Mass/Vol] 11.8 g/dL 13.0-17.0 [facility] Blood leukocytes automated c ount (number/volume)on 08-18-2020 WBC (Bld) [#/Vol] 15.3 10*3/uL 4.5-11.0 [facility] COVID-19 Detected/Not Detect edon 08-18-2020 SARS-CoV-2 (COVID-19) RNA SUDHA+non-probe Ql (Nph) Not detected Not Detecte [facility] Comment on above: This is a duplicate RP2.1 COVID (PCR) result to be used for statistical tracking purpose only. COVID-19 SOFIAon 08-18-2020 SARS-CoV+SARS-CoV- 2 (COVID-19) Ag IA.rapid Ql (Resp) Negative Negative [facility] Comment on above: This is a duplicate Ayah SARS Antigen (AGUSTINA) result to be used for statistical tracking purpose only. Creatinine and Glomerular fi ltration rate.predicted panel (S/P/Bld)on 08-18-2020 Creatinine [Mass/Vol] 3.04 mg/dL 0.64-1.27 [facility] Eosinophils Auto (Bld) [#/Vo l]on [...] [M ass/Vol]on 08-18-2020 Glucose [Mass/Vol] 388 mg/dL [facility] Comment on above: Random Glucose Refer ence Range is dependent on time and content of last meal. Glucose of more than 200 mg/dL in a nonstressed, ambulatory subject supports the diagnosis of Diabetes Mellitus. Hematocrit Auto (Bld) [Volum e fraction]on 08-18-2020 Hematocrit (Bld) [Volume fraction] 36.1 % 38.8-50.0 [facility] Laboratory - Chemistry and C hemistry - challengeon 08-18-2020 CO2 [Moles/Vol] 25.7 mmol/L 24.0-29.0 [facility] HCO3 (Bld) [Moles/Vol] 24.3 mmol/L 23.0-29.0 [facility] [...] 83.5 fL 83.5-101 [facility] Monocytes Auto (Bld) [#/Vol] on 08-18-2020 Monocytes [...] 08-18-2020 Platelets (Bld) [#/Vol] 249 10*3/uL 150-450 [facility] Protein [Mass/volume] in Ser um or Plasmaon 08-18-2020 Protein [Mass/Vol] 7.1 g/dL 6.1-7.9 [facility] RBC Auto (Bld) [#/Vol]on RBC (Bld) [#/Vol] 4.32 10*6/uL 3.90-5.60 [facility] Serum or plasma alanine gomez otransferase measurement without P-5'-P (enzymatic activion 08-18-2020 ALT No additional P-5'-P [Catalytic activity/Vol] 13 U/L 10-60 [facility] Serum or plasma albumin/glob ulin mass ratioon 08-18-2020 Albumin/Globulin [Mass ratio] 0.6 {ratio} [facility] Serum or plasma alkaline kayode sphatase measurement (enzymatic activity/volume)on 08-18-2020 ALP [Catalytic activity/Vol] 88 U/L 32-92 [facility] Serum or plasma aspartate am inotransferase measurement (enzymatic activity/volume)on 08-18-2020 AST [Catalytic activity/Vol] 16 U/L 10-42 [facility] Serum or plasma calcium joel urement (mass/volume)on 08-18-2020 Calcium [Mass/Vol] 8.9 mg/dL 8.2-10.2 [facility] Serum or plasma cardiac trop onin I measurement (mass/volume)on 08-18-2020 Troponin I.cardiac [Mass/Vol] ng/mL 0-0.02 [facility] Comment on above: HÉCTOR MA Cut off value > or equal to 0.03 ng/mL in conjunction with clinical conditions of myocardial infarction.([email or web address].org/guidelines) Serum or plasma chloride faraz surement (moles/volume)on 08-18-2020 Chloride [Moles/Vol] 95 mmol/L 95-114 [facility] Serum or plasma glucose joel urement (mass/volume)on 08-18-2020 Glucose [Mass/Vol] 512 mg/dL 70-100 [facility] Comment on above: Results calledat 165 [...] (moles/volume)on 08-18-2020 Sodium [Moles/Vol] 128 mmol/L 136-146 [facility] Serum or plasma total biliru bin measurement (mass/volume)on 08-18-2020 Bilirubin [Mass/Vol] 0.7 mg/dL 0.3-1.2 [facility] Serum or plasma total carbon dioxide measurement (moles/volume)on 08-18-2020 CO2 [Moles/Vol] 22.6 mmol/L 22.0-30.0 [facility] Serum or plasma urea nitroge n measurement (mass/volume)on 08-18-2020 Urea nitrogen [Mass/Vol] 27 mg/dL - [facility] CBC COMPLETE BLOOD COUNTon 0 - Erythrocyte distribution width (RBC) [Ratio] 15.0 % Normal 11.5-15.0 [facility] Comment on above: Order Comment: No: D o not add to previous draw Performed By: #### 8 [id number] #### [address] [place] [address], [facility] Hematocrit (Bld) [Volume fraction] 32.4 % Low 39.0-50.0 [facility] Comment on above: Order Comment: No: D o not add to previous draw Performed By: #### 8 [id number] #### [facility] [address] [place] [address], [facility] Hemoglobin (Bld) [Mass/Vol] 9.5 g/dL Low 13.0-17.0 [facility] Comment on above: Order Comment: No: D o not add to previous draw Performed By: #### 8 [id number] #### [facility] [address] [place] [address], [facility] MCH (RBC) [Entitic mass] 26.7 pg Low 27.0-33.0 [facility] Comment on above: Order Comment: No: D o not add to previous draw Performed By: #### 8 [id number] #### [facility] [address] [place] [address], [facility] MCHC (RBC) [Mass/Vol] 29.3 g/dL Low 32.0-35.0 [facility] Comment on above: Order Comment: No: D o not add to previous draw Performed By: #### 8 [id number] #### [facility] [address] [place] [address], [facility] MCV (RBC) [Entitic vol] 91.0 fL Normal 82.0-98.0 [facility] Comment on above: Order Comment: No: D o not add to previous draw Performed By: #### 8 [id number] #### [facility] [address] [place] [address], [facility] Nucleated RBC/100 WBC (Bld) [Ratio] 0 % Normal 0-0 [facility] Comment on above: Order Comment: No: D o not add to previous draw Performed By: #### 8 [id number] #### [facility] [address] [place] [id number], [facility] PLAT CNT 276 10*3/uL Normal 150-400 [facility] Comment on above: Order Comment: No: D o not add to previous draw Performed By: #### 8 [id number] #### [facility] [address] [place] [address], [facility] RBC (Bld) [#/Vol] 3.56 10*6/uL Low 4.20-5.70 [facility] Comment on above: Order Comment: No: D o not add to previous draw Performed By: #### 8 [id number] #### [facility] [address] [place] [address], [facility] WBC (Bld) [#/Vol] 8.61 10*3/uL Normal 4.00-10.60 [facility] Comment on above: Order Comment: No: D o not add to previous draw Performed By: #### 8 [id number] #### [facility] [address] [place] [address], [facility] COMP METABOLIC PANELon 07-22 Albumin [Mass/Vol] 2.7 g/dL Low 3.5-5.7 [facility] Comment on above: Order Comment: No: D o not add to previous draw Performed By: #### 8 [id number] #### [facility] [address] [place] [address], [facility] ALKALINE PHOSPH 70 IU/L Normal 34-104 [facility] Comment on above: Order Comment: No: D o not add to previous draw Performed By: #### 8 [id number] #### [facility] [address] [place] [address], [facility] ALT [Catalytic activity/Vol] 4 U/L Low 7-52 [facility] Comment on above: Order Comment: No: D o not add to previous draw Performed By: #### 8 [id number] #### [facility] [address] [place] [id number], [facility] AST [Catalytic activity/Vol] 15 U/L Normal 13-39 [facility] Comment on above: Order Comment: No: D o not add to previous draw Performed By: #### 8 [id number] #### [facility] [address] [place] [address], [place] Bilirubin [Mass/Vol] 0.2 mg/dL Low 0.3-1.0 [facility] Comment on above: Order Comment: No: D o not add to previous draw Performed By: #### 8 [id number] #### [facility] [address] [place] [address], [place] Calcium [Mass/Vol] 8.9 mg/dL Normal 8.6-10.3 [facility] Comment on above: Order Comment: No: D o not add to previous draw Performed By: #### 8 [id number] #### [facility] [address] [place] [address], [place] Chloride [Moles/Vol] 109 mmol/L High 98-107 [facility] Comment on above: Order Comment: No: D o not add to previous draw Performed By: #### 8 [id number] #### [facility] [address] [place] [address], [place] CO2 [Moles/Vol] 24 mmol/L Normal 21-31 [facility] Comment on above: Order Comment: No: D o not add to previous draw Performed By: #### 8 [id number] #### [facility] [address] [place] [address], [place] Creatinine [Mass/Vol] 3.39 mg/dL High 0.70-1.30 [facility] Comment on above: Order Comment: No: D o not add to previous draw Performed By: #### 8 [id number] #### [facility] [address] [place] [address], [place] eGFR- 23 ml/min/1.73sq m Abnormal >60 [facility] Comment on above: Order Comment: No: D o not add to previous draw Performed By: #### 8 [id number] #### [facility] [address] [place] [address], [place] eGFR- non- 19 ml/min/1.73sq m Abnormal >60 [facility] Comment on above: Order Comment: No: D o not add to previous draw Performed By: #### 8 [id number] #### [facility] [address] [place] [address], [place] Glucose [Mass/Vol] 90 mg/dL Normal 70-100 [facility] Comment on above: Order Comment: No: D o not add to previous draw Performed By: #### 8 [id number] #### [facility] [address] [place] [address], [place] Potassium [Moles/Vol] 4.4 mmol/L Normal 3.5-5.1 [facility] Comment on above: Order Comment: No: D o not add to previous draw Performed By: #### 8 [id number] #### [facility] [address] [place] [address], [place] Protein [Mass/Vol] 5.9 g/dL Low 6.0-8.3 [facility] Comment on above: Order Comment: No: D o not add to previous draw Performed By: #### 8 [id number] #### [facility] [address] [place] [address], [place] Sodium [Moles/Vol] 140 mmol/L Normal 136-145 [facility] Comment on above: Order Comment: No: D o not add to previous draw Performed By: #### 8 [id number] #### [facility] [address] [place] [address], [place] Urea nitrogen [Mass/Vol] 35 mg/dL High 7-25 [facility] Comment on above: Order Comment: No: D o not add to previous draw Performed By: #### 8 [id number] #### [facility] [address] [place] [address], [place] POC GLUCOSE LABon 07-22-2020 Glucose [Mass/Vol] 192 mg/dL High 70-100 [facility] Comment on above: Performed By: #### 8 [id number] #### [facility] [address] [place] [address], [facility] Glucose [Mass/Vol] 95 mg/dL Normal 70-100 [facility] Comment on above: Performed By: #### 5 [id number], [id number] #### [facility] [address] [place] [address], [facility] Glucose [Mass/Vol] 123 mg/dL High 70-100 [facility] Comment on above: Performed By: #### 8 [id number] ####[facility] [facility] ARTERIAL BLOOD GAS WITH ICAo n 07-21-2020 BASE EXCESS -2 mmol/L Normal -2-3 [facility] Comment on above: Performed By: #### 8 [id number] #### [facility] [address] [place] [address], [facility] DELIVERY SYSTEMS FOCUS Normal [facility] Comment on above: Performed By: #### 8 [id number] #### [facility] [address] [facility] [address], [facility] HCO3 (Bld) [Moles/Vol] 24 mmol/L Normal 21-28 [facility] Comment on above: Performed By: #### 8 [id number] #### [facility] [address] [facility] [place] [address], [facility] IONIZED CALCIUM 1.25 mmol/L Normal 1.13-1.32 [facility] Comment on above: Performed By: #### 8 [id number] #### [facility] [address] [facility] [address], [facility] LPM 4.0 LPM Normal [facility] Comment on above: Performed By: #### 8 [id number] #### [facility] [address] [place] [address], [facility] MODALITY BIPAP Normal [facility] Comment on above: Performed By: #### 8 [id number] #### [facility] [address] [place] [address], [facility] Oxygen (Bld) [Partial pressure] 91 mm[Hg] Normal 83-108 [facility] Comment on above: Performed By: #### 8 [id number] #### [facility] [address] [place] [address], [facility] Oxygen saturation in Blood 95.9 % Normal 94.0-97.0 [facility] Comment on above: Performed By: #### 8 [id number] #### [facility] [address] [place] [address], [facility] PCO2 47 mmHg High 35-45 [facility] Comment on above: Performed By: #### 8 [id number] #### [facility] [address] [place] [address], [facility] PEEP 8.0 CMH20 Normal [facility] Comment on above: Performed By: #### 8 [id number] #### [facility] [address] [place] [address], [facility] pH (Bld) 7.32 [pH] Low 7.35-7.45 [facility] Comment on above: Performed By: #### 8 [id number] #### [facility] [address] [place] [address], [facility] PRESSURE SUPPORT 16 Normal [facility] Comment on above: Performed By: #### 8 [id number] #### [facility] [address] [place] [address], [facility] BASE EXCESS -3 mmol/L Low -2-3 [facility] Comment on above: Performed By: #### 3 0318 #### [facility] [address] [place] [address], [facility] [employer] NASAL CANNULA Normal [facility] Comment on above: Performed By: #### 3 0318 #### [facility] [address] [place] [address], [facility] HCO3 (Bld) [Moles/Vol] 25 mmol/L Normal 21-28 [facility] Comment on above: Performed By: #### 3 0318 #### [facility] [address] [place] [address], [facility] IONIZED CALCIUM 1.26 mmol/L Normal 1.13-1.32 [facility] Comment on above: Performed By: #### 3 0318 #### [facility] [address] [place] [address], [facility] LPM 2.0 LPM Normal [facility] Comment on above: Performed By: #### 3 8 #### [facility] [address] [place] [address], [facility] Oxygen (Bld) [Partial pressure] 92 mm[Hg] Normal 83-108 [facility] Comment on above: Performed By: #### 3 0318 #### [facility] [address] [place] [address], [facility] Oxygen saturation in Blood 95.7 % Normal 94.0-97.0 [facility] Comment on above: Performed By: #### 3 8 #### [facility] [address] [place] [address], [facility] PCO2 54 mmHg High 35-45 [facility] Comment on above: Performed By: #### 3 0318 #### [facility] [address] [place] [address], [place] pH (Bld) 7.27 [pH] Low 7.35-7.45 [facility] Comment on above: Performed By: #### 3 8 #### [facility] [address] [place] [address], [place] BASIC METABOLIC PANELon 06-28 Calcium [Mass/Vol] 9.0 mg/dL Normal 8.6-10.3 [facility] Comment on above: Order Comment: No: D o not add to previous drawPt not in room rn will return when back. Performed By: #### 3 1943 #### [facility] [address] [place] [address], [facility] Chloride [Moles/Vol] 106 mmol/L Normal 98-107 [facility] Comment on above: Order Comment: No: D o not add to previous drawPt not in room rn will return when back. Performed By: #### 3 1943 #### [facility] [address] [place] [address], [facility] CO2 [Moles/Vol] 25 mmol/L Normal 21-31 [facility] Comment on above: Order Comment: No: D o not add to previous drawPt not in room rn will return when back. Performed By: #### 3 1943 #### [facility] [address] [place] [address], [facility] Creatinine [Mass/Vol] 3.75 mg/dL High 0.70-1.30 [facility] Comment on above: Order Comment: No: D o not add to previous drawPt not in room rn will return when back. Performed By: #### 3 1943 #### [facility] [address] [place] [address], [facility] eGFR- 20 ml/min/1.73sq m Abnormal >60 [facility] Comment on above: Order Comment: No: D o not add to previous drawPt not in room rn will return when back. Performed By: #### 3 1943 #### [facility] [address] [place] [address], [facility] eGFR- non- 17 ml/min/1.73sq m Abnormal >60 [facility] Comment on above: Order Comment: No: D o not add to previous drawPt not in room rn will return when back. Performed By: #### 3 1943 #### [facility] [address] [place] [address], [facility] Glucose [Mass/Vol] 132 mg/dL High 70-100 [facility] Comment on above: Order Comment: No: D o not add to previous drawPt not in room rn will return when back. Performed By: #### 3 1943 #### [facility] [address] [place] [address], [facility] Potassium [Moles/Vol] 5.0 mmol/L Normal 3.5-5.1 [facility] Comment on above: Order Comment: No: D o not add to previous drawPt not in room rn will return when back. Performed By: #### 3 1943 #### [facility] [address] [place] [address], [facility] Sodium [Moles/Vol] 138 mmol/L Normal 136-145 [facility] Comment on above: Order Comment: No: D o not add to previous drawPt not in room rn will return when back. Performed By: #### 3 1943 #### [facility] [address] [place] [address], [facility] Urea nitrogen [Mass/Vol] 37 mg/dL High 7-25 [facility] Comment on above: Order Comment: No: D o not add to previous drawPt not in room rn will return when back. Performed By: #### 3 1943 #### [facility] [address] [place] [address], [facility] CBC COMPLETE BLOOD COUNTon 0 07-21-2020 Erythrocyte distribution width (RBC) [Ratio] 15.0 % Normal 11.5-15.0 [facility] Comment on above: Order Comment: No: D o not add to previous drawPt not in room rn will return when back. Performed By: #### 8 [id number] #### [facility] [address] [place] [address], [facility] Hematocrit (Bld) [Volume fraction] 33.9 % Low 39.0-50.0 [facility] Comment on above: Order Comment: No: D o not add to previous drawPt not in room rn will return when back. Performed By: #### 8 [id number] #### [facility] [address] [place] [address], [facility] Hemoglobin (Bld) [Mass/Vol] 9.9 g/dL Low 13.0-17.0 [facility] Comment on above: Order Comment: No: D o not add to previous drawPt not in room rn will return when back. Performed By: #### 8 [id number] #### [facility] [address] [facility] [place] [address], [facility] MCH (RBC) [Entitic mass] 26.9 pg Low 27.0-33.0 [facility] Comment on above: Order Comment: No: D o not add to previous drawPt not in room rn will return when back. Performed By: #### 8 [id number] #### [facility] [address] [facility] [place] [address], [facility] MCHC (RBC) [Mass/Vol] 29.2 g/dL Low 32.0-35.0 [facility] Comment on above: Order Comment: No: D o not add to previous drawPt not in room rn will return when back. Performed By: #### 8 [id number] #### [facility] [address] [facility] [place] [address], [facility] MCV (RBC) [Entitic vol] 92.1 fL Normal 82.0-98.0 [facility] Comment on above: Order Comment: No: D o not add to previous drawPt not in room rn will return when back. Performed By: #### 8 [id number] #### [facility] [address] [place] [address], [facility] Nucleated RBC/100 WBC (Bld) [Ratio] 0 % Normal 0-0 [facility] Comment on above: Order Comment: No: D o not add to previous drawPt not in room rn will return when back. Performed By: #### 8 [id number] #### [place] [address], [facility] PLAT CNT 288 10*3/uL Normal 150-400 [facility] Comment on above: Order Comment: No: D o not add to previous drawPt not in room rn will return when back. Performed By: #### 8 [id number] #### [facility] [address] [place] [address], [facility] RBC (Bld) [#/Vol] 3.68 10*6/uL Low 4.20-5.70 [facility] Comment on above: Order Comment: No: D o not add to previous drawPt not in room rn will return when back. Performed By: #### 8 [id number] #### [place] [address], [facility] WBC (Bld) [#/Vol] 9.51 10*3/uL Normal 4.00-10.60 [facility] Comment on above: Order Comment: No: D o not add to previous drawPt not in room rn will return when back. Performed By: #### 8 [id number] #### [address] CHEST WO CONTRASTon 07-21 CT CHEST WO CONTRAST [facility] Department of Radiology [address] [place] [id number] Patient Name: RASHARD LYMAN : 1960 Sex: M Age: Race: White Pt. Location: [address] [place] [address] Patient Status: I Ordered Date: 07/21/2020 6:00:00 [...] pneumonia. Electronically signed: Manuel Saldaña. Transcribed by: [email or web address], User Resident: Electronically Signed by: MANUEL SALDAÑA @ 07/21/2020 08:38 AM Normal [facility] Comment on above: Order Comment: Left Peural Effusion POC GLUCOSE LABon 07-21-2020 Glucose [Mass/Vol] 134 mg/dL High 70-100 [facility] Comment on above: Performed By: #### 5 0103 #### [facility] [address] [place] [address], [place] Glucose [Mass/Vol] 88 mg/dL Normal 70-100 [facility] Comment on above: Performed By: #### 8 [id number] #### [facility] [address] [place] [address], [place] Glucose [Mass/Vol] 110 mg/dL High 70-100 [facility] Comment on above: Performed By: #### 8 [id number] #### [facility] [address] [place] [address], [place] Glucose [Mass/Vol] 118 mg/dL High 70-100 [facility] Comment on above: Performed By: #### 5 7307, [id number] #### [facility] [address] [place] [address], [place] Glucose [Mass/Vol] 137 mg/dL High 70-100 [facility] Comment on above: Performed By: #### 5 7307, [address] #### [facility] [address] [place] [address], [place] BASIC METABOLIC PANELon 06-28 Calcium [Mass/Vol] 8.4 mg/dL Low 8.6-10.3 [facility] Comment on above: Order Comment: No: D o not add to previous draw Performed By: #### 8 [id number] #### [facility] [address] [place] [address], [place] Chloride [Moles/Vol] 107 mmol/L Normal 98-107 [facility] Comment on above: Order Comment: No: D o not add to previous draw Performed By: #### 8 [id number] #### [facility] [address] [place] [address], [place] CO2 [Moles/Vol] 23 mmol/L Normal 21-31 [facility] Comment on above: Order Comment: No: D o not add to previous draw Performed By: #### 8 [id number] #### [facility] [address] [place] [address], [place] Creatinine [Mass/Vol] 3.95 mg/dL High 0.70-1.30 [facility] Comment on above: Order Comment: No: D o not add to previous draw Performed By: #### 8 [id number] #### [facility] [address] [place] [address], [facility] eGFR- 19 ml/min/1.73sq m Abnormal >60 [facility] Comment on above: Order Comment: No: D o not add to previous draw Performed By: #### 8 [id number] #### [facility] [address] [place] [address], [place] eGFR- non- 16 ml/min/1.73sq m Abnormal >60 [facility] Comment on above: Order Comment: No: D o not add to previous draw Performed By: #### 8 [id number] #### [facility] [address] [place] [address], [place] Glucose [Mass/Vol] 110 mg/dL High 70-100 [facility] Comment on above: Order Comment: No: D o not add to previous draw Performed By: #### 8 [id number] #### [facility] [address] [place] [address], [place] Potassium [Moles/Vol] 4.9 mmol/L Normal 3.5-5.1 [facility] Comment on above: Order Comment: No: D o not add to previous draw Performed By: #### 8 [id number] #### [facility] [address] [place] [address], [place] Sodium [Moles/Vol] 137 mmol/L Normal 136-145 [facility] Comment on above: Order Comment: No: D o not add to previous draw Performed By: #### 8 [id number] #### [facility] [address] Urea nitrogen [Mass/Vol] 37 mg/dL High 7-25 [facility] Comment on above: Order Comment: No: D o not add to previous draw Performed By: #### 8 [id number] #### [facility] [address] CBC W/DIFFon 07-20-2020 ABS IMM GRANS 0.1 10*3/uL Normal 0.0-0.2 [facility] Comment on above: Order Comment: No: D o not add to previous draw Performed By: #### 8 [id number] #### [facility] [address] ABS NEUTROPHILS 5.9 10*3/uL Normal 1.6-7.6 [facility] Comment on above: Order Comment: No: D o not add to previous draw Performed By: #### 8 [id number] #### [facility] [address] [place] [address], [facility] Basophils (Bld) [#/Vol] 0.1 10*3/uL Normal 0.0-0.2 [facility] Comment on above: Order Comment: No: D o not add to previous draw Performed By: #### 8 [id number] #### [facility] [address] [place] [address], [facility] Basophils/100 WBC (Bld) 1.0 % Normal 0.0-1.0 [facility] Comment on above: Order Comment: No: D o not add to previous draw Performed By: #### 8 [id number] #### [facility] [address] [place] [address], [facility] Eosinophils (Bld) [#/Vol] 0.4 10*3/uL Normal 0.0-0.5 [facility] Comment on above: Order Comment: No: D o not add to previous draw Performed By: #### 8 [id number] #### [facility] [address] [facility] [place] [address], [facility] Eosinophils/100 WBC (Bld) 5.1 % Normal 0.0-6.0 [facility] Comment on above: Order Comment: No: D o not add to previous draw Performed By: #### 8 [id number] #### [facility] [address] Erythrocyte distribution width (RBC) [Ratio] 15.4 % High 11.5-15.0 [facility] Comment on above: Order Comment: No: D o not add to previous draw Performed By: #### 8 [id number] #### [facility] [address] [facility]. [address] Hematocrit (Bld) [Volume fraction] 35.7 % Low 39.0-50.0 [facility] Comment on above: Order Comment: No: D o not add to previous draw Performed By: #### 8 [id number] #### [facility] [address] [facility]. [address] Hemoglobin (Bld) [Mass/Vol] 10.3 g/dL Low 13.0-17.0 [facility] Comment on above: Order Comment: No: D o not add to previous draw Performed By: #### 8 [id number] #### [facility] [address] [facility] [place] [address], [facility] IMM PLATELET FRAC 0.4 % Low 0.8-6.3 [facility] Comment on above: Order Comment: No: D o not add to previous draw Performed By: #### 8 [id number] #### [facility] [address] [place] [address], [facility] IMMATURE GRANS 1.1 % High 0.0-1.0 [facility] Comment on above: Order Comment: No: D o not add to previous draw Performed By: #### 8 [id number] #### [facility] [address] [place] [address], [facility] Lymphocytes (Bld) [#/Vol] 0.8 10*3/uL Low 1.2-4.0 [facility] Comment on above: Order Comment: No: D o not add to previous draw Performed By: #### 8 [id number] #### [facility] [address] [place] [address], [facility] Lymphocytes/100 WBC (Bld) 9.3 % Low 20.0-45.0 [facility] Comment on above: Order Comment: No: D o not add to previous draw Performed By: #### 8 [id number] #### [facility] [address] [facility] [place] [id number], [facility] MCH (RBC) [Entitic mass] 27.4 pg Normal 27.0-33.0 [facility] Comment on above: Order Comment: No: D o not add to previous draw Performed By: #### 8 [id number] #### [facility] [address] [facility] [place] [id number], [facility] MCHC (RBC) [Mass/Vol] 28.9 g/dL Low 32.0-35.0 [facility] Comment on above: Order Comment: No: D o not add to previous draw Performed By: #### 8 [id number] #### [facility] [address] [place] [id number], [facility] MCV (RBC) [Entitic vol] 94.9 fL Normal 82.0-98.0 [facility] Comment on above: Order Comment: No: D o not add to previous draw Performed By: #### 8 [id number] #### [facility] [address] [place] [id number], [facility] Monocytes (Bld) [#/Vol] 1.1 10*3/uL High 0.1-1.0 [facility] Comment on above: Order Comment: No: D o not add to previous draw Performed By: #### 8 [id number] #### [facility] [address] [place] [address], [place] MONOS 12.9 % High 5.0-12.0 [facility] Comment on above: Order Comment: No: D o not add to previous draw Performed By: #### 8 [id number] #### [facility] [address] [place] [address], [place] Neutrophils/100 WBC (Bld) 70.6 % Normal 40.0-72.0 [facility] Comment on above: Order Comment: No: D o not add to previous draw Performed By: #### 8 [id number] #### [facility] [address] [place] [address], [place] Nucleated RBC/100 WBC (Bld) [Ratio] 0 % Normal 0-0 [facility] Comment on above: Order Comment: No: D o not add to previous draw Performed By: #### 8 [id number] #### [facility] [address] [place] [address], [place] PLAT ESTIMATE Normal Normal [facility] Comment on above: Order Comment: No: D o not add to previous draw Result Comment: EDTA smear shows platelet clumping, see platelet estimate Performed By: #### 8 [id number] #### [facility] [address] [place] [address], [place] RBC (Bld) [#/Vol] 3.76 10*6/uL Low 4.20-5.70 [facility] Comment on above: Order Comment: No: D o not add to previous draw Performed By: #### 8 [id number] #### [facility] [address] [place] [address], [place] WBC (Bld) [#/Vol] 8.30 10*3/uL Normal 4.00-10.60 [facility] Comment on above: Order Comment: No: D o not add to previous draw Performed By: #### 8 [id number] #### [facility] [address] [place] [address], [facility] POC GLUCOSE LABon 07-20-2020 Glucose [Mass/Vol] 110 mg/dL High 70-100 [facility] Comment on above: Performed By: #### 5 0103 #### [facility] [address] [place] [address], [facility] Glucose [Mass/Vol] 124 mg/dL High 70-100 [facility] Comment on above: Performed By: #### 5 0103 #### [facility] [address] [place] [address], [facility] Glucose [Mass/Vol] 111 mg/dL High 70-100 [facility] Comment on above: Performed By: #### 5 7307, [address]29[address] #### [facility] [address] [place] [address], [facility] PORTABLE CHEST 1 VIEWon 06-28 PORTABLE CHEST 1 VIEW [facility] Department of Radiology [address] [place] [id number] Patient Name: RASHARD LYMAN : 1960 Sex: M Age: Race: White Pt. Location: [id number] Patient Status: I Ordered Date: 07/20/2020 6:00:00 [...] unchanged Electronically signed: Manuel Saldaña. Transcribed by: [email or web address], User Resident: Electronically Signed by: MANUEL SALDAÑA @ 07/20/2020 09:07 AM Normal [facility] Comment on above: Order Comment: Evalu ate for Effusion BASIC METABOLIC PANELon - Calcium [Mass/Vol] 8.4 mg/dL Low 8.6-10.3 [facility] Comment on above: Order Comment: No: D o not add to previous draw Performed By: #### 3 1943 #### [facility] [address] [place] [address], [place] Chloride [Moles/Vol] 104 mmol/L Normal 98-107 [facility] Comment on above: Order Comment: No: D o not add to previous draw Performed By: #### 3 1943 #### [facility] [address] [place] [address], [place] CO2 [Moles/Vol] 24 mmol/L Normal 21-31 [facility] Comment on above: Order Comment: No: D o not add to previous draw Performed By: #### 3 1943 #### [facility] [address] [place] [address], [place] Creatinine [Mass/Vol] 4.15 mg/dL High 0.70-1.30 [facility] Comment on above: Order Comment: No: D o not add to previous draw Performed By: #### 3 1943 #### [facility] [address] [place] [address], [place] eGFR- 18 ml/min/1.73sq m Abnormal >60 [facility] Comment on above: Order Comment: No: D o not add to previous draw Performed By: #### 3 1943 #### [facility] [address] [place] [address], [place] eGFR- non- 15 ml/min/1.73sq m Abnormal >60 [facility] Comment on above: Order Comment: No: D o not add to previous draw Performed By: #### 3 1943 #### [facility] [address] [place] [address], [place] Glucose [Mass/Vol] 180 mg/dL High 70-100 [facility] Comment on above: Order Comment: No: D o not add to previous draw Performed By: #### 3 1943 #### [facility] [address] [place] [address], [place] Potassium [Moles/Vol] 4.4 mmol/L Normal 3.5-5.1 [facility] Comment on above: Order Comment: No: D o not add to previous draw Performed By: #### 3 1943 #### [facility] [address] [place] [address], [place] Sodium [Moles/Vol] 135 mmol/L Low 136-145 [facility] Comment on above: Order Comment: No: D o not add to previous draw Performed By: #### 3 1943 #### [facility] [address] [place] [address], [place] Urea nitrogen [Mass/Vol] 37 mg/dL High 7-25 [facility] Comment on above: Order Comment: No: D o not add to previous draw Performed By: #### 3 1944 #### [facility] [address] [place] [id number], [facility] CBC COMPLETE BLOOD COUNTon 0 - Erythrocyte distribution width (RBC) [Ratio] 14.8 % Normal 11.5-15.0 [facility] Comment on above: Order Comment: No: D o not add to previous draw Performed By: #### 8 [id number] #### [facility] [address] [place] [id number], [facility] Hematocrit (Bld) [Volume fraction] 30.9 % Low 39.0-50.0 [facility] Comment on above: Order Comment: No: D o not add to previous draw Performed By: #### 8 [id number] #### [facility] [address] [place] [id number], [facility] Hemoglobin (Bld) [Mass/Vol] 9.0 g/dL Low 13.0-17.0 [facility] Comment on above: Order Comment: No: D o not add to previous draw Performed By: #### 8 [id number] #### [facility] [address] [place] [id number], [facility] MCH (RBC) [Entitic mass] 26.6 pg Low 27.0-33.0 [facility] Comment on above: Order Comment: No: D o not add to previous draw Performed By: #### 8 [id number] #### [facility] [address] [place] [address], [place] MCHC (RBC) [Mass/Vol] 29.1 g/dL Low 32.0-35.0 [facility] Comment on above: Order Comment: No: D o not add to previous draw Performed By: #### 8 [id number] #### [facility] [address] MCV (RBC) [Entitic vol] 91.4 fL Normal 82.0-98.0 [facility] Comment on above: Order Comment: No: D o not add to previous draw Performed By: #### 8 [id number] #### [facility] [address] [place] [address], [facility] Nucleated RBC/100 WBC (Bld) [Ratio] 0 % Normal 0-0 [facility] Comment on above: Order Comment: No: D o not add to previous draw Performed By: #### 8 [id number] #### [facility] [address] [place] [address], [facility] PLAT CNT 279 10*3/uL Normal 150-400 [facility] Comment on above: Order Comment: No: D o not add to previous draw Performed By: #### 8 [id number] #### [facility] [address] [place] [address], [facility] RBC (Bld) [#/Vol] 3.38 10*6/uL Low 4.20-5.70 [facility] Comment on above: Order Comment: No: D o not add to previous draw Performed By: #### 8 [id number] #### [facility] [address] [place] [id number], [place] WBC (Bld) [#/Vol] 6.73 10*3/uL Normal 4.00-10.60 [facility] Comment on above: Order Comment: No: D o not add to previous draw Performed By: #### 8 [id number] #### [facility] [address] [facility] Operative Reporton Operative Report MR#: [id number] I [facility] Pt. Name: [facility] Room #: [id number] Discharge Date: Birthdate: 1960 OPERATIVE REPORT DATE OF SURGERY: 07/19/2020 SURGEON: Nima Wynne MD Operative Note Medical Thoracoscopy, lysis of adhesions, pleural biopsy Procedure Date: 07/19/2020 Procedure: Medical Thoracoscopy, pleural biopsies, lysis of adhesions, and chest tube placement Preoperative Diagnosis: Loculated pleural effusion Post-operative Diagnosis: same Surgeons: Nima Wynne MD [employer]: Davis Pham MD Type of Anesthesia: MAC [...] Wynne MD Date Trans: 07/19/2020 02:43 P/ [id number] cc: Jose Juarez D.O. [address] [place] [id number] Normal [facility] POC GLUCOSE LABon 07-19-2020 Glucose [Mass/Vol] 219 mg/dL High 70-100 [facility] Comment on above: Performed By: #### 5 7307, [id number] #### [facility] [address] [place] [address], [place] Glucose [Mass/Vol] 152 mg/dL High 70-100 [facility] Comment on above: Performed By: #### 5 7307, 86771 #### [facility] [address] [facility] [address], [place] Glucose [Mass/Vol] 183 mg/dL High 70-100 [facility] Comment on above: Performed By: #### 5 0103 #### [facility] [address] [facility] [address], [place] Glucose [Mass/Vol] 206 mg/dL High 70-100 [facility] Comment on above: Performed By: #### 8 [id number] ####[facility] [place] [address], [place] Glucose [Mass/Vol] 179 mg/dL High 70-100 [facility] Comment on above: Performed By: #### 5 0103 #### [facility] [address] [place] [address], [place] PORTABLE CHEST 1 VIEWon 06-28 PORTABLE CHEST 1 VIEW [facility] Department of Radiology [address] [place] [id number] Patient Name: RASHARD LYMAN : 1960 Sex: M Age: Race: White Pt. Location: [id number] Patient Status: I Ordered Date: 07/19/2020 2:20:00 [...] infiltration Electronically signed: Pedro Baldwin. Transcribed by: [email or web address], User Resident: PEDRO ABLDWIN Electronically Signed by: PEDRO BALDWIN @ 07/19/2020 03:03 PM I personally read this/these film(s) with this resident Normal [facility] Comment on above: Order Comment: Check Chest Tube Position BASIC METABOLIC PANELon 2 Calcium [Mass/Vol] 8.4 mg/dL Low 8.6-10.3 [facility] Comment on above: Order Comment: No: D o not add to previous draw Performed By: #### 8 [id number] #### [facility] [address] [place] [address], [place] Chloride [Moles/Vol] 105 mmol/L Normal 98-107 [facility] Comment on above: Order Comment: No: D o not add to previous draw Performed By: #### 8 [id number] #### [facility] [address] [place] [address], [place] CO2 [Moles/Vol] 25 mmol/L Normal 21-31 [facility] Comment on above: Order Comment: No: D o not add to previous draw Performed By: #### 8 [id number] #### [facility] [address] [place] [address], [place] Creatinine [Mass/Vol] 4.54 mg/dL High 0.70-1.30 [facility] Comment on above: Order Comment: No: D o not add to previous draw Performed By: #### 8 [id number] #### [facility] [address] [place] [address], [place] eGFR- 16 ml/min/1.73sq m Abnormal >60 [facility] Comment on above: Order Comment: No: D o not add to previous draw Performed By: #### 8 [id number] #### [facility] [address] [place] [address], [place] eGFR- non- 13 ml/min/1.73sq m Abnormal >60 [facility] Comment on above: Order Comment: No: D o not add to previous draw Performed By: #### 8 [id number] #### [facility] [address] [place] [address], [place] Glucose [Mass/Vol] 118 mg/dL High 70-100 [facility] Comment on above: Order Comment: No: D o not add to previous draw Performed By: #### 8 [id number] #### [facility] [address] [place] [address], [facility] Potassium [Moles/Vol] 4.5 mmol/L Normal 3.5-5.1 [facility] Comment on above: Order Comment: No: D o not add to previous draw Performed By: #### 8 [id number] #### [facility] [address] Sodium [Moles/Vol] 137 mmol/L Normal 136-145 [facility] Comment on above: Order Comment: No: D o not add to previous draw Performed By: #### 8 [id number] #### [facility] [address] [facility] [address] Urea nitrogen [Mass/Vol] 40 mg/dL High 7-25 [facility] Comment on above: Order Comment: No: D o not add to previous draw Performed By: #### 8 [id number] #### [facility] [address] [place] [address], [facility] CBC W/DIFFon 07-18-2020 ABS IMM GRANS 0.1 10*3/uL Normal 0.0-0.2 [facility] Comment on above: Order Comment: No: D o not add to previous draw Performed By: #### 8 [id number] #### [facility] [address] [facility]. [address] ABS NEUTROPHILS 5.0 10*3/uL Normal 1.6-7.6 [facility] Comment on above: Order Comment: No: D o not add to previous draw Performed By: #### 8 [id number] #### [facility] [address] [place] [address], [facility] Basophils (Bld) [#/Vol] 0.0 10*3/uL Normal 0.0-0.2 [facility] Comment on above: Order Comment: No: D o not add to previous draw Performed By: #### 8 [id number] #### [facility] [address] [place] [address], [facility] Basophils/100 WBC (Bld) 0.4 % Normal 0.0-1.0 [facility] Comment on above: Order Comment: No: D o not add to previous draw Performed By: #### 8 [id number] #### [facility] [address] [place] [address], [facility] Eosinophils (Bld) [#/Vol] 0.6 10*3/uL High 0.0-0.5 [facility] Comment on above: Order Comment: No: D o not add to previous draw Performed By: #### 8 [id number] #### [facility] [address] [place] [address], [facility] Eosinophils/100 WBC (Bld) 6.8 % High 0.0-6.0 [facility] Comment on above: Order Comment: No: D o not add to previous draw Performed By: #### 8 [id number] #### [facility] [address] [place] [address], [facility] Erythrocyte distribution width (RBC) [Ratio] 14.8 % Normal 11.5-15.0 [facility] Comment on above: Order Comment: No: D o not add to previous draw Performed By: #### 8 [id number] #### [facility] [address] [place] [address], [facility] Hematocrit (Bld) [Volume fraction] 31.9 % Low 39.0-50.0 [facility] Comment on above: Order Comment: No: D o not add to previous draw Performed By: #### 8 [id number] #### [facility] [address] [place] [address], [facility] Hemoglobin (Bld) [Mass/Vol] 9.4 g/dL Low 13.0-17.0 [facility] Comment on above: Order Comment: No: D o not add to previous draw Performed By: #### 8 [id number] #### [facility] [address] [place] [address], [facility] IMMATURE GRANS 1.7 % High 0.0-1.0 [facility] Comment on above: Order Comment: No: D o not add to previous draw Performed By: #### 8 [id number] #### [facility] [address] [place] [address], [facility] Lymphocytes (Bld) [#/Vol] 1.2 10*3/uL Normal 1.2-4.0 [facility] Comment on above: Order Comment: No: D o not add to previous draw Performed By: #### 8 [id number] #### [facility] [address] [place] [address], [facility] Lymphocytes/100 WBC (Bld) 14.8 % Low 20.0-45.0 [facility] Comment on above: Order Comment: No: D o not add to previous draw Performed By: #### 8 [id number] #### [facility] [address] [facility] [place] [address], [facility] MCH (RBC) [Entitic mass] 26.9 pg Low 27.0-33.0 [facility] Comment on above: Order Comment: No: D o not add to previous draw Performed By: #### 8 [id number] #### [facility] [address] [facility] [place] [address], [facility] MCHC (RBC) [Mass/Vol] 29.5 g/dL Low 32.0-35.0 [facility] Comment on above: Order Comment: No: D o not add to previous draw Performed By: #### 8 [id number] #### [facility] [address] [place] [id number], [facility] MCV (RBC) [Entitic vol] 91.1 fL Normal 82.0-98.0 [facility] Comment on above: Order Comment: No: D o not add to previous draw Performed By: #### 8 [id number] #### [facility] [address] [place] [address], [facility] Monocytes (Bld) [#/Vol] 1.1 10*3/uL High 0.1-1.0 [facility] Comment on above: Order Comment: No: D o not add to previous draw Performed By: #### 8 [id number] #### [facility] [address] [place] [address], [facility] MONOS 13.4 % High 5.0-12.0 [facility] Comment on above: Order Comment: No: D o not add to previous draw Performed By: #### 8 [id number] #### [facility] [address] [place] [address], [facility] Neutrophils/100 WBC (Bld) 62.9 % Normal 40.0-72.0 [facility] Comment on above: Order Comment: No: D o not add to previous draw Performed By: #### 8 [id number] #### [facility] [address] [place] [address], [facility] Nucleated RBC/100 WBC (Bld) [Ratio] 0 % Normal 0-0 [facility] Comment on above: Order Comment: No: D o not add to previous draw Performed By: #### 8 [id number] #### [facility] [address] [facility] [place] [id number], [facility] PLAT CNT 296 10*3/uL Normal 150-400 [facility] Comment on above: Order Comment: No: D o not add to previous draw Performed By: #### 8 [id number] #### [facility] [address] [place] [id number], [facility] RBC (Bld) [#/Vol] 3.50 10*6/uL Low 4.20-5.70 [facility] Comment on above: Order Comment: No: D o not add to previous draw Performed By: #### 8 [id number] #### [facility] [address] [place] [address], [place] WBC (Bld) [#/Vol] 8.03 10*3/uL Normal 4.00-10.60 [facility] Comment on above: Order Comment: No: D o not add to previous draw Performed By: #### 8 [id number] #### [facility] [address] [place] [address], [place] POC GLUCOSE LABon 07-18-2020 Glucose [Mass/Vol] 192 mg/dL High 70-100 [facility] Comment on above: Performed By: #### 5 7307, 07276 #### [facility] [address] [place] [address], [place] Glucose [Mass/Vol] 153 mg/dL High 70-100 [facility] Comment on above: Performed By: #### 5 7307, 25331 #### [facility] [address] [place] [address], [place] Glucose [Mass/Vol] 80 mg/dL Normal 70-100 [facility] Comment on above: Performed By: #### 5 7307, 09541 #### [facility] [address] [place] [address], [place] Glucose [Mass/Vol] 48 mg/dL Critically low 70-100 Th [facility] Comment on above: Order Comment: Left Peural Effusion Performed By: #### 8 [id number] ####[facility] [place] [address], [place] Glucose [Mass/Vol] 120 mg/dL High 70-100 [facility] Comment on above: Performed By: #### 5 0103 #### [facility] [address] [place] [address], [place] Glucose [Mass/Vol] 112 mg/dL High 70-100 [facility] Comment on above: Performed By: #### 5 7307, 47965 #### [facility] [address] [facility] [place], [place] [id number] [place] [address] POC SARS COV2 ANTIGEN NEGATI VEon 07-18-2020 POC SARS COV2 ANTIGEN NEG CANCELED Normal NEGATIVE [facility] Comment on above: Result Comment: The released value NEGATIVE was canceled by ULISES on 07/19/2020 07:11 Performed By: #### 3 1943 #### [facility] [address] [facility] [place] [id number] [place] [address] POC SARS COV2 ANTIGEN NEG Negative Normal NEGATIVE [facility] Comment on above: Result Comment: Nega [...] 5499 #### [facility] [address] [facility] [place], [place] [id number] [place] [address] BASIC METABOLIC PANELon 06-28 Calcium [Mass/Vol] 8.2 mg/dL Low 8.6-10.3 [facility] Comment on above: Order Comment: No: D o not add to previous draw Performed By: #### 3 1943 #### [facility] [address] [place] [address], [place] Chloride [Moles/Vol] 101 mmol/L Normal 98-107 [facility] Comment on above: Order Comment: No: D o not add to previous draw Performed By: #### 3 1943 #### [facility] [address] [place] [address], [place] CO2 [Moles/Vol] 25 mmol/L Normal 21-31 [facility] Comment on above: Order Comment: No: D o not add to previous draw Performed By: #### 3 1943 #### [facility] [address] [place] [address], [place] Creatinine [Mass/Vol] 3.64 mg/dL High 0.70-1.30 [facility] Comment on above: Order Comment: No: D o not add to previous draw Performed By: #### 3 1943 #### [facility] [address] [place] [address], [place] eGFR- 21 ml/min/1.73sq m Abnormal >60 [facility] Comment on above: Order Comment: No: D o not add to previous draw Performed By: #### 3 1943 #### [facility] [address] [place] [address], [place] eGFR- non- 17 ml/min/1.73sq m Abnormal >60 [facility] Comment on above: Order Comment: No: D o not add to previous draw Performed By: #### 3 1943 #### [facility] [address] [place] [address], [place] Glucose [Mass/Vol] 124 mg/dL High 70-100 [facility] Comment on above: Order Comment: No: D o not add to previous draw Performed By: #### 3 1943 #### [facility] [address] [place] [address], [place] Potassium [Moles/Vol] 4.3 mmol/L Normal 3.5-5.1 [facility] Comment on above: Order Comment: No: D o not add to previous draw Performed By: #### 3 1943 #### [facility] [address] [place] [address], [facility] Sodium [Moles/Vol] 134 mmol/L Low 136-145 [facility] Comment on above: Order Comment: No: D o not add to previous draw Performed By: #### 3 1943 #### [facility] [address] Urea nitrogen [Mass/Vol] 36 mg/dL High 7-25 [facility] Comment on above: Order Comment: No: D o not add to previous draw Performed By: #### 3 1943 #### [facility] [address] [place] [address], [facility] CBC W/DIFFon 07-17-2020 ABS IMM GRANS 0.2 10*3/uL Normal 0.0-0.2 [facility] Comment on above: Order Comment: No: D o not add to previous draw Performed By: #### 8 [id number] #### [facility] [address] ABS NEUTROPHILS 5.8 10*3/uL Normal 1.6-7.6 [facility] Comment on above: Order Comment: No: D o not add to previous draw Performed By: #### 8 [id number] #### [facility] [address] [place] [address], [facility] Basophils (Bld) [#/Vol] 0.1 10*3/uL Normal 0.0-0.2 [facility] Comment on above: Order Comment: No: D o not add to previous draw Performed By: #### 8 [id number] #### [facility] [address] [place] [address], [facility] Basophils/100 WBC (Bld) 0.6 % Normal 0.0-1.0 [facility] Comment on above: Order Comment: No: D o not add to previous draw Performed By: #### 8 [id number] #### [facility] [address] [place] [address], [facility] Eosinophils (Bld) [#/Vol] 0.6 10*3/uL High 0.0-0.5 [facility] Comment on above: Order Comment: No: D o not add to previous draw Performed By: #### 8 [id number] #### [facility] [address] [place] [address], [facility] Eosinophils/100 WBC (Bld) 7.0 % High 0.0-6.0 [facility] Comment on above: Order Comment: No: D o not add to previous draw Performed By: #### 8 [id number] #### [facility] [address] Erythrocyte distribution width (RBC) [Ratio] 14.8 % Normal 11.5-15.0 [facility] Comment on above: Order Comment: No: D o not add to previous draw Performed By: #### 8 [id number] #### [facility] [address] [place] [address], [facility] Hematocrit (Bld) [Volume fraction] 30.0 % Low 39.0-50.0 [facility] Comment on above: Order Comment: No: D o not add to previous draw Performed By: #### 8 [id number] #### [facility] [address] [place] [address], [facility] Hemoglobin (Bld) [Mass/Vol] 9.2 g/dL Low 13.0-17.0 [facility] Comment on above: Order Comment: No: D o not add to previous draw Performed By: #### 8 [id number] #### [facility] [address] [place] [id number], [facility] IMMATURE GRANS 1.7 % High 0.0-1.0 [facility] Comment on above: Order Comment: No: D o not add to previous draw Performed By: #### 8 [id number] #### [facility] [address] [place] [address], [facility] Lymphocytes (Bld) [#/Vol] 1.3 10*3/uL Normal 1.2-4.0 [facility] Comment on above: Order Comment: No: D o not add to previous draw Performed By: #### 8 [id number] #### [facility] [address] [place] [address], [facility] Lymphocytes/100 WBC (Bld) 14.3 % Low 20.0-45.0 [facility] Comment on above: Order Comment: No: D o not add to previous draw Performed By: #### 8 [id number] #### [facility] [address] [facility] [place] [id number], [facility] MCH (RBC) [Entitic mass] 27.3 pg Normal 27.0-33.0 [facility] Comment on above: Order Comment: No: D o not add to previous draw Performed By: #### 8 [id number] #### [facility] [address] [place] [address], [facility] MCHC (RBC) [Mass/Vol] 30.7 g/dL Low 32.0-35.0 [facility] Comment on above: Order Comment: No: D o not add to previous draw Performed By: #### 8 [id number] #### [facility] [address] [place] [id number], [facility] MCV (RBC) [Entitic vol] 89.0 fL Normal 82.0-98.0 [facility] Comment on above: Order Comment: No: D o not add to previous draw Performed By: #### 8 [id number] #### [facility] [address] [place] [id number], [facility] Monocytes (Bld) [#/Vol] 1.0 10*3/uL Normal 0.1-1.0 [facility] Comment on above: Order Comment: No: D o not add to previous draw Performed By: #### 8 [id number] #### [facility] [address] [place] [address], [facility] MONOS 10.9 % Normal 5.0-12.0 [facility] Comment on above: Order Comment: No: D o not add to previous draw Performed By: #### 8 [id number] #### [facility] [address] [place] [address], [facility] Neutrophils/100 WBC (Bld) 65.5 % Normal 40.0-72.0 [facility] Comment on above: Order Comment: No: D o not add to previous draw Performed By: #### 8 [id number] #### [facility] [address] [place] [address], [facility] Nucleated RBC/100 WBC (Bld) [Ratio] 0 % Normal 0-0 [facility] Comment on above: Order Comment: No: D o not add to previous draw Performed By: #### 8 [id number] #### [facility] [address] [place] [address], [facility] PLAT CNT 293 10*3/uL Normal 150-400 [facility] Comment on above: Order Comment: No: D o not add to previous draw Performed By: #### 8 [id number] #### [facility] [address] [place] [address], [facility] RBC (Bld) [#/Vol] 3.37 10*6/uL Low 4.20-5.70 [facility] Comment on above: Order Comment: No: D o not add to previous draw Performed By: #### 8 [id number] #### [facility] [address] [place] [address], [place] WBC (Bld) [#/Vol] 8.86 10*3/uL Normal 4.00-10.60 [facility] Comment on above: Order Comment: No: D o not add to previous draw Performed By: #### 8 [id number] #### [facility] [address] [place] [address], [place] POC GLUCOSE LABon 07-17-2020 Glucose [Mass/Vol] 101 mg/dL High 70-100 [facility] Comment on above: Performed By: #### 5 7307, 39084 #### [facility] [address] [place] [address], [place] Glucose [Mass/Vol] 76 mg/dL Normal 70-100 [facility] Comment on above: Performed By: #### 5 7307, [id number] #### [facility] [address] [place] [address], [place] Glucose [Mass/Vol] 75 mg/dL Normal 70-100 [facility] Comment on above: Performed By: #### 8 [id number] ####[facility] [place] [address], [place] Glucose [Mass/Vol] 198 mg/dL High 70-100 [facility] Comment on above: Performed By: #### 8 [id number] ####[facility] [place] [address], [place] Glucose [Mass/Vol] 205 mg/dL High 70-100 [facility] Comment on above: Performed By: #### 3 0318 #### [facility] [address] [place] [address], [place] Glucose [Mass/Vol] 187 mg/dL High 70-100 [facility] Comment on above: Performed By: #### 5 7307, 72478 #### [facility] [address] [place] [address], [place] Glucose [Mass/Vol] 131 mg/dL High 70-100 [facility] Comment on above: Performed By: #### 8 [id number] #### [facility] [address] [place] [address], [place] Glucose [Mass/Vol] 75 mg/dL Normal 70-100 [facility] Comment on above: Performed By: #### 5 0103 #### [facility] [address] [place] [address], [place] Glucose [Mass/Vol] 69 mg/dL Low 70-100 [facility] Comment on above: Performed By: #### 8 [id number] ####[facility] [place] [address], [facility] BASIC METABOLIC PANELon 03-2 -2020 Calcium [Mass/Vol] 8.4 mg/dL Low 8.6-10.3 [facility] Comment on above: Order Comment: No: D o not add to previous draw Performed By: #### 3 1943 #### [facility] [address] [place] [address], [facility] Chloride [Moles/Vol] 105 mmol/L Normal 98-107 [facility] Comment on above: Order Comment: No: D o not add to previous draw Performed By: #### 3 1943 #### [facility] [address] [place] [address], [facility] CO2 [Moles/Vol] 24 mmol/L Normal 21-31 [facility] Comment on above: Order Comment: No: D o not add to previous draw Performed By: #### 3 1943 #### [facility] [address] [place] [address], [facility] Creatinine [Mass/Vol] 4.14 mg/dL High 0.70-1.30 [facility] Comment on above: Order Comment: No: D o not add to previous draw Performed By: #### 3 1943 #### [facility] [address] [place] [address], [facility] eGFR- 18 ml/min/1.73sq m Abnormal >60 [facility] Comment on above: Order Comment: No: D o not add to previous draw Performed By: #### 3 1943 #### [facility] [address] [place] [address], [facility] eGFR- non- 15 ml/min/1.73sq m Abnormal >60 [facility] Comment on above: Order Comment: No: D o not add to previous draw Performed By: #### 3 1943 #### [facility] [address] [place] [address], [place] Glucose [Mass/Vol] 127 mg/dL High 70-100 [facility] Comment on above: Order Comment: No: D o not add to previous draw Performed By: #### 3 1943 #### [facility] [address] [place] [address], [place] Potassium [Moles/Vol] 4.0 mmol/L Normal 3.5-5.1 [facility] Comment on above: Order Comment: No: D o not add to previous draw Performed By: #### 3 1943 #### [facility] [address] [place] [address], [place] Sodium [Moles/Vol] 136 mmol/L Normal 136-145 [facility] Comment on above: Order Comment: No: D o not add to previous draw Performed By: #### 3 1943 #### [facility] [address] [place] [address], [place] Urea nitrogen [Mass/Vol] 35 mg/dL High 7-25 [facility] Comment on above: Order Comment: No: D o not add to previous draw Performed By: #### 3 1943 #### [facility] [address] [place] [address], [place] CBC COMPLETE BLOOD COUNTon 0 - Erythrocyte distribution width (RBC) [Ratio] 14.6 % Normal 11.5-15.0 [facility] Comment on above: Order Comment: No: D o not add to previous draw Performed By: #### 8 [id number] #### [facility] [address] [place] [address], [facility] Hematocrit (Bld) [Volume fraction] 31.8 % Low 39.0-50.0 [facility] Comment on above: Order Comment: No: D o not add to previous draw Performed By: #### 8 [id number] #### [facility] [address] [place] [address], [facility] Hemoglobin (Bld) [Mass/Vol] 9.7 g/dL Low 13.0-17.0 [facility] Comment on above: Order Comment: No: D o not add to previous draw Performed By: #### 8 [id number] #### [facility] [address] [place] [address], [facility] MCH (RBC) [Entitic mass] 27.2 pg Normal 27.0-33.0 [facility] Comment on above: Order Comment: No: D o not add to previous draw Performed By: #### 8 [id number] #### [facility] [address] [place] [address], [facility] MCHC (RBC) [Mass/Vol] 30.5 g/dL Low 32.0-35.0 [facility] Comment on above: Order Comment: No: D o not add to previous draw Performed By: #### 8 [id number] #### [facility] [address] [place] [address], [facility] MCV (RBC) [Entitic vol] 89.3 fL Normal 82.0-98.0 [facility] Comment on above: Order Comment: No: D o not add to previous draw Performed By: #### 8 [id number] #### [facility] [address] [place] [id number], [facility] Nucleated RBC/100 WBC (Bld) [Ratio] 0 % Normal 0-0 [facility] Comment on above: Order Comment: No: D o not add to previous draw Performed By: #### 8 [id number] #### [facility] [address] [place] [address], [place] PLAT CNT 321 10*3/uL Normal 150-400 [facility] Comment on above: Order Comment: No: D o not add to previous draw Performed By: #### 8 [id number] #### [facility] [address] [place] [address], [place] RBC (Bld) [#/Vol] 3.56 10*6/uL Low 4.20-5.70 [facility] Comment on above: Order Comment: No: D o not add to previous draw Performed By: #### 8 [id number] #### [facility] [address] [place] [address], [place] WBC (Bld) [#/Vol] 8.88 10*3/uL Normal 4.00-10.60 [facility] Comment on above: Order Comment: No: D o not add to previous draw Performed By: #### 8 [id number] #### [facility] [address] [place] [address], [place] POC GLUCOSE LABon 07-16-2020 Glucose [Mass/Vol] 94 mg/dL Normal 70-100 [facility] Comment on above: Performed By: #### 5 0103 #### [facility] [address] [place] [address], [place] Glucose [Mass/Vol] 62 mg/dL Low 70-100 [facility] Comment on above: Performed By: #### 5 7307, 67741 #### [facility] [address] [place] [address], [place] Glucose [Mass/Vol] 80 mg/dL Normal 70-100 [facility] Comment on above: Performed By: #### 5 7307, 16695 #### [facility] [address] [place] [address], [place] Glucose [Mass/Vol] 99 mg/dL Normal 70-100 [facility] Comment on above: Performed By: #### 8 [id number] ####[facility] [place] [address], [facility] Glucose [Mass/Vol] 203 mg/dL High 70-100 [facility] Comment on above: Performed By: #### 8 5499 ####[facility] [place] [address], [facility] Glucose [Mass/Vol] 151 mg/dL High 70-100 [facility] Comment on above: Performed By: #### 5 7307, 67230 #### [facility] [address] [place] [address], [facility] ANAon 07-15-2020 KILLIAN SCREEN <1:40 Normal <1:40,1:40 [facility] Comment on above: Order Comment: No: D o not add to previous draw Performed By: #### 8 [id number] #### [facility] [address] [facility] [place] [address], [facility] ANCA IGG WITH REFLEX [id number] on 07-15-2020 ANCA <1:20 Normal <1:20 [facility] Comment on above: Order Comment: No: [...] collagen vascular disease or arthritis. Performed By: [facility] [address] [place] [address] [employer] Accountant: Emi Campbell MD BASIC METABOLIC PANELon 06-27 Calcium [Mass/Vol] 8.5 mg/dL Low 8.6-10.3 [facility] Comment on above: Order Comment: No: D o not add to previous draw Performed By: #### 8 [id number] #### [facility] [address] [place] [address], [facility] Chloride [Moles/Vol] 103 mmol/L Normal 98-107 [facility] Comment on above: Order Comment: No: D o not add to previous draw Performed By: #### 8 [id number] #### [facility] [address] [place] [address], [place] CO2 [Moles/Vol] 23 mmol/L Normal 21-31 [facility] Comment on above: Order Comment: No: D o not add to previous draw Performed By: #### 8 [id number] #### [facility] [address] [place] [address], [facility] Creatinine [Mass/Vol] 4.38 mg/dL High 0.70-1.30 [facility] Comment on above: Order Comment: No: D o not add to previous draw Performed By: #### 8 [id number] #### [facility] [address] [place] [address], [facility] eGFR- 17 ml/min/1.73sq m Abnormal >60 [facility] Comment on above: Order Comment: No: D o not add to previous draw Performed By: #### 8 [id number] #### [facility] [address] [place] [address], [facility] eGFR- non- 14 ml/min/1.73sq m Abnormal >60 [facility] Comment on above: Order Comment: No: D o not add to previous draw Performed By: #### 8 [id number] #### [facility] [address] [place] [address], [place] Glucose [Mass/Vol] 154 mg/dL High 70-100 [facility] Comment on above: Order Comment: No: D o not add to previous draw Performed By: #### 8 [id number] #### [facility] [address] [place] [address], [place] Potassium [Moles/Vol] 4.5 mmol/L Normal 3.5-5.1 [facility] Comment on above: Order Comment: No: D o not add to previous draw Performed By: #### 8 [id number] #### [facility] [address] Sodium [Moles/Vol] 135 mmol/L Low 136-145 [facility] Comment on above: Order Comment: No: D o not add to previous draw Performed By: #### 8 [id number] #### [facility] [address] Urea nitrogen [Mass/Vol] 32 mg/dL High 7-25 [facility] Comment on above: Order Comment: No: D o not add to previous draw Performed By: #### 8 [id number] #### [facility] [address] C REACTIVE PROTEINon 021 CRP [Mass/Vol] 138.0 mg/L High 0.0-7.0 [facility] Comment on above: Order Comment: FROM [id number] Performed By: #### 8 [id number] #### [facility] [address] [facility]. [address] CBC W/DIFFon 07-15-2020 ABS IMM GRANS 0.1 10*3/uL Normal 0.0-0.2 [facility] Comment on above: Performed By: #### 5 0103 #### [facility] [address] [facility]. [address] ABS NEUTROPHILS 7.3 10*3/uL Normal 1.6-7.6 [facility] Comment on above: Performed By: #### 5 0103 #### [facility] [address] [place] [address], [facility] Basophils (Bld) [#/Vol] 0.0 10*3/uL Normal 0.0-0.2 [facility] Comment on above: Performed By: #### 5 0103 #### [facility] [address] [facility] Basophils/100 WBC (Bld) 0.3 % Normal 0.0-1.0 [facility] Comment on above: Performed By: #### 5 0103 #### [facility] [address] [place] [address], [facility] Eosinophils (Bld) [#/Vol] 0.5 10*3/uL Normal 0.0-0.5 [facility] Comment on above: Performed By: #### 5 0103 #### [facility] [address] [place] [address], [facility] Eosinophils/100 WBC (Bld) 5.1 % Normal 0.0-6.0 [facility] Comment on above: Performed By: #### 5 0103 #### [facility] [address] [facility] [address] Erythrocyte distribution width (RBC) [Ratio] 14.9 % Normal 11.5-15.0 [facility] Comment on above: Performed By: #### 5 0103 #### [facility] [address] Hematocrit (Bld) [Volume fraction] 33.0 % Low 39.0-50.0 [facility] Comment on above: Performed By: #### 5 0103 #### [facility] [address] [facility] [address] Hemoglobin (Bld) [Mass/Vol] 9.9 g/dL Low 13.0-17.0 [facility] Comment on above: Performed By: #### 5 0103 #### [facility] [address] [place] [address], [facility] IMMATURE GRANS 1.4 % High 0.0-1.0 [facility] Comment on above: Performed By: #### 5 0103 #### [facility] [address] [place] [address], [facility] Lymphocytes (Bld) [#/Vol] 1.1 10*3/uL Low 1.2-4.0 [facility] Comment on above: Performed By: #### 5 0103 #### [facility] [address] [place] [address], [facility] Lymphocytes/100 WBC (Bld) 11.0 % Low 20.0-45.0 [facility] Comment on above: Performed By: #### 5 0103 #### [facility] [address] [place] [address], [facility] MCH (RBC) [Entitic mass] 27.0 pg Normal 27.0-33.0 [facility] Comment on above: Performed By: #### 5 0103 #### [facility] [address] [facility] [address] MCHC (RBC) [Mass/Vol] 30.0 g/dL Low 32.0-35.0 [facility] Comment on above: Performed By: #### 5 0103 #### [facility] [address] [place] [address], [facility] MCV (RBC) [Entitic vol] 90.2 fL Normal 82.0-98.0 [facility] Comment on above: Performed By: #### 5 0103 #### [facility] [address] [place] [address], [facility] Monocytes (Bld) [#/Vol] 1.1 10*3/uL High 0.1-1.0 [facility] Comment on above: Performed By: #### 5 3 #### [facility] [address] [place] [address], [facility] MONOS 10.9 % Normal 5.0-12.0 [facility] Comment on above: Performed By: #### 5 3 #### [facility] [address] [place] [address], [facility] Neutrophils/100 WBC (Bld) 71.3 % Normal 40.0-72.0 [facility] Comment on above: Performed By: #### 5 0103 #### [facility] [address] [place] [address], [facility] Nucleated RBC/100 WBC (Bld) [Ratio] 0 % Normal 0-0 [facility] Comment on above: Performed By: #### 5 0103 #### [facility] [address] [place] [address], [place] PLAT CNT 317 10*3/uL Normal 150-400 [facility] Comment on above: Performed By: #### 5 0103 #### [facility] [address] [place] [id number], [facility] RBC (Bld) [#/Vol] 3.66 10*6/uL Low 4.20-5.70 [facility] Comment on above: Performed By: #### 5 0103 #### [facility] [address] [place] [address], [facility] WBC (Bld) [#/Vol] 10.23 10*3/uL Normal 4.00-10.60 [facility] Comment on above: Performed By: #### 5 0103 #### [facility] [address] [place] [address], [facility] COMPLEMENT 307-15-2020 COMPLEMENT 3 108 mg/dL Normal 79-152 [facility] Comment on above: Order Comment: No: D o not add to previous draw Performed By: #### 8 [id number] #### [facility] [address] [place] [address], [place] COMPLEMENT 407-15-2020 COMPLEMENT 4 31 mg/dL Normal 16-38 [facility] Comment on above: Order Comment: No: D o not add to previous draw Performed By: #### 8 [id number] #### [facility] [address] [place] [address], [place] GLOMR BASMT MEMBRon 07-16-19 21 GLOMR BASMT MBRN Negative Abnormal NEGATIVE [facility] Comment on above: Order Comment: No: D o not add to previous draw Result Comment: Note : The performance characteristics of this test were validated by the [facility] Immunology laboratory. It has not been cleared or approved by the U.S. Food and Drug Administration. The results are not intended to be used as the sole means for clinical diagnosis or patient management decisions. [facility] Immunology lab is authorized under CLIA to perform high-complexity testing. Performed By: #### 8 [id number] #### [facility] [address] [facility] [address], [facility] POC GLUCOSE LABon 07-15-2020 Glucose [Mass/Vol] 107 mg/dL High 70-100 [facility] Comment on above: Performed By: #### 5 7307, 13300 #### [facility] [address] [place] [address], [facility] Glucose [Mass/Vol] 84 mg/dL Normal 70-100 [facility] Comment on above: Performed By: #### 5 0103 #### [facility] [address] [place] [address], [facility] Glucose [Mass/Vol] 164 mg/dL High 70-100 [facility] Comment on above: Performed By: #### 8 5499 ####[facility] [place] [address], [place] Glucose [Mass/Vol] 141 mg/dL High 70-100 [facility] Comment on above: Performed By: #### 5 7307, 41059 #### [facility] [address] [place] [address], [facility] PORTABLE CHEST 1 VIEWon 06-27 PORTABLE CHEST 1 VIEW [facility] Department of Radiology [address] [place] [id number] Patient Name: RASHARD LYMAN : 1960 Sex: M Age: Race: White Pt. Location: [address] [place] [address] Patient Status: I Ordered Date: 07/15/2020 7:00:00 [...] exam. Electronically signed: Nir Swartz. Transcribed by: [email or web address], User Resident: Electronically Signed by: NIR SWARTZ @ 07/15/2020 07:34 AM Normal [facility] Comment on above: Order Comment: evalu ate for Effusion *AFB CULTUREon 07-14-2020 *AFB CULTURE Clinical Report: (D) Specimen/Source: FLUID/PLEURAL FLUID Collected: 07/14/2020 13:03 Status: Final Last Updated: 08/26/2020 08:52 (1) Left Peural Effusion AFB (Final) No Acid Fast Bacilli Seen CULT RES (Final) No growth after 42 days of incubation Normal [facility] Comment on above: Order Comment: Left Peural Effusion Performed By: #### 8 [id number] #### [facility] [address] *ANAEROBIC CULTUREon 021 *ANAEROBIC CULTURE Clinical Report: (D) Specimen/Source: FLUID/PLEURAL FLUID Collected: 07/14/2020 13:03 Status: Final Last Updated: 07/19/2020 08:08 (1) Left Peural Effusion CULT RES (Final) No Anaerobes Isolated 5 Days Normal [facility] Comment on above: Order Comment: Left Peural Effusion Performed By: #### 8 [id number] #### [facility] [address] *BODY FLUID CULTUREon 2020 *BODY FLUID CULTURE Clinical Report: (D) Specimen/Source: FLUID/PLEURAL FLUID Collected: 07/14/2020 13:03 Status: Final Last Updated: 07/19/2020 07:53 (1) Left Peural Effusion GRAM (Final) Polys PRESENT No Bacteria Seen CYTOSPUN (Final) This Gram Stain was done on a cytocentrifuged specimen CULT RES (Final) No Growth Day 5 Normal [facility] Comment on above: Order Comment: Left Peural Effusion Performed By: #### 3 0318 #### [facility] [address] *FUNGAL CULTUREon 07-14-2020 *FUNGAL CULTURE Clinical Report: (D) Specimen/Source: FLUID/PLEURAL FLUID Collected: 07/14/2020 13:03 Status: Final Last Updated: 08/15/2020 08:41 (1) Left Peural Effusion FS (Final) No Yeast or Fungal Elements Seen CULT RES (Final) Culture negative for fungus Normal [facility] Comment on above: Order Comment: Left Peural Effusion Performed By: #### 8 [id number] #### [facility] [address] *VIRAL NON RESPIRATORY CULTU REon 07-14-2020 Bacteria identified Cx Nom (Unsp spec) Normal [facility] Comment on above: Order Comment: Left [...] Linked Virus Inducible S. [place] Normal [facility] Comment on above: Order Comment: Left Peural Effusion Result Comment: Test Performed by [employer] [address] [address] - Released 07/20/2020 14:10 Result changed by IF on 07/17/2020 14:17. The previous value was Test Performed by [facility] [address] [place] [phone].. Result changed by IF on 07/18/2020 12:17. The previous value was Test Performed by [employer] [address] [place] [phone].. Result changed by IF on 07/20/2020 14:10. The previous value was Test Performed by [employer] [address] [place] [phone] REPORT STATUS FINAL 07/20/2020 Normal [facility] Comment on above: Order Comment: Left Peural Effusion Result Comment: Resu lt changed by IF on 07/20/2020 14:10. The previous value was Preliminary. APTTon 07-14-2020 aPTT Coag (Bld) [Time] 41.7 s High 25.0-35.0 [facility] Comment on above: Order Comment: No: [...] [id number] #### [facility] [address] [place] [address], [facility] aPTT Coag (Bld) [Time] 44.9 s High 25.0-35.0 [facility] Comment on above: Order Comment: No: [...] THIS PURPOSE. Performed By: #### 5 [id number], [id number] #### [facility] [address] [place] [address], [facility] BASIC METABOLIC PANELon 03- Calcium [Mass/Vol] 8.6 mg/dL Normal 8.6-10.3 [facility] Comment on above: Order Comment: No: D o not add to previous draw Performed By: #### 8 [id number] #### [facility] [address] [place] [address], [facility] Chloride [Moles/Vol] 102 mmol/L Normal 98-107 [facility] Comment on above: Order Comment: No: D o not add to previous draw Performed By: #### 8 [id number] #### [facility] [address] [place] [address], [place] CO2 [Moles/Vol] 24 mmol/L Normal 21-31 [facility] Comment on above: Order Comment: No: D o not add to previous draw Performed By: #### 8 [id number] #### [facility] [address] [place] [address], [place] Creatinine [Mass/Vol] 3.44 mg/dL High 0.70-1.30 [facility] Comment on above: Order Comment: No: D o not add to previous draw Performed By: #### 8 [id number] #### [facility] [address] [place] [address], [place] eGFR- 22 ml/min/1.73sq m Abnormal >60 [facility] Comment on above: Order Comment: No: D o not add to previous draw Performed By: #### 8 [id number] #### [facility] [address] [place] [address], [place] eGFR- non- 18 ml/min/1.73sq m Abnormal >60 [facility] Comment on above: Order Comment: No: D o not add to previous draw Performed By: #### 8 [id number] #### [facility] [address] [place] [address], [place] Glucose [Mass/Vol] 355 mg/dL High 70-100 [facility] Comment on above: Order Comment: No: D o not add to previous draw Performed By: #### 8 [id number] #### [facility] [address] [place] [address], [place] Potassium [Moles/Vol] 4.6 mmol/L Normal 3.5-5.1 [facility] Comment on above: Order Comment: No: D o not add to previous draw Performed By: #### 8 [id number] #### [facility] [address] [place] [address], [place] Sodium [Moles/Vol] 133 mmol/L Low 136-145 [facility] Comment on above: Order Comment: No: D o not add to previous draw Performed By: #### 8 [id number] #### [facility] [address] [place] [address], [facility] Urea nitrogen [Mass/Vol] 27 mg/dL High 7-25 [facility] Comment on above: Order Comment: No: D o not add to previous draw Performed By: #### 8 [id number] #### [facility] [address] [place] [address], [facility] BNP (B-TYPE NATRIURETIC PEPT CIERRA)on 07-14-2020 Natriuretic peptide B (Bld) [Mass/Vol] 19 pg/mL Normal 0-100 [facility] Comment on above: Order Comment: Left Peural Effusion Result Comment: Give n the appropriate clinical setting a BNP result of >100 pg/mL indicates congestive heart failure. Performed By: #### 3 [id number] #### [facility] [address] CBC COMPLETE BLOOD COUNTon 0 07-14-2020 Erythrocyte distribution width (RBC) [Ratio] 14.6 % Normal 11.5-15.0 [facility] Comment on above: Order Comment: No: D o not add to previous draw Performed By: #### 8 [id number] #### [facility] [address] [place] [address], [facility] Hematocrit (Bld) [Volume fraction] 35.3 % Low 39.0-50.0 [facility] Comment on above: Order Comment: No: D o not add to previous draw Performed By: #### 8 [id number] #### [facility] [address] [place] [address], [facility] Hemoglobin (Bld) [Mass/Vol] 11.1 g/dL Low 13.0-17.0 [facility] Comment on above: Order Comment: No: D o not add to previous draw Performed By: #### 8 [id number] #### [facility] [address] [place] [address], [facility] MCH (RBC) [Entitic mass] 27.5 pg Normal 27.0-33.0 [facility] Comment on above: Order Comment: No: D o not add to previous draw Performed By: #### 8 [id number] #### [facility] [address] [place] [address], [facility] MCHC (RBC) [Mass/Vol] 31.4 g/dL Low 32.0-35.0 [facility] Comment on above: Order Comment: No: D o not add to previous draw Performed By: #### 8 [id number] #### [facility] [address] [place] [address], [facility] MCV (RBC) [Entitic vol] 87.6 fL Normal 82.0-98.0 [facility] Comment on above: Order Comment: No: D o not add to previous draw Performed By: #### 8 [id number] #### [facility] [address] [facility] [place] [address], [facility] Nucleated RBC/100 WBC (Bld) [Ratio] 0 % Normal 0-0 [facility] Comment on above: Order Comment: No: D o not add to previous draw Performed By: #### 8 [id number] #### [facility] [address] [place] [place] [address], [facility] PLAT CNT 325 10*3/uL Normal 150-400 [facility] Comment on above: Order Comment: No: D o not add to previous draw Performed By: #### 8 [id number] #### [facility] [address] [place] [address], [facility] RBC (Bld) [#/Vol] 4.03 10*6/uL Low 4.20-5.70 [facility] Comment on above: Order Comment: No: D o not add to previous draw Performed By: #### 8 [id number] #### [facility] [address] [place] [address], [facility] WBC (Bld) [#/Vol] 12.59 10*3/uL High 4.00-10.60 [facility] Comment on above: Order Comment: No: D o not add to previous draw Performed By: #### 8 [id number] #### [facility] [address] [place] [address], [facility] CBC W/DIFFon 07-14-2020 ABS IMM GRANS 0.2 10*3/uL Normal 0.0-0.2 [facility] Comment on above: Order Comment: No: D o not add to previous draw Performed By: #### 8 [id number] #### [facility] [address] [place] [address], [facility] ABS NEUTROPHILS 7.9 10*3/uL High 1.6-7.6 [facility] Comment on above: Order Comment: No: D o not add to previous draw Performed By: #### 8 [id number] #### [facility] [address] [place] [address], [facility] Basophils (Bld) [#/Vol] 0.1 10*3/uL Normal 0.0-0.2 [facility] Comment on above: Order Comment: No: D o not add to previous draw Performed By: #### 8 [id number] #### [facility] [address] [place] [address], [facility] Basophils/100 WBC (Bld) 0.5 % Normal 0.0-1.0 [facility] Comment on above: Order Comment: No: D o not add to previous draw Performed By: #### 8 [id number] #### [facility] [address] [place] [address], [facility] Eosinophils (Bld) [#/Vol] 0.5 10*3/uL Normal 0.0-0.5 [facility] Comment on above: Order Comment: No: D o not add to previous draw Performed By: #### 8 [id number] #### [facility] [address] [place] [id number], [facility] Eosinophils/100 WBC (Bld) 4.3 % Normal 0.0-6.0 [facility] Comment on above: Order Comment: No: D o not add to previous draw Performed By: #### 8 [id number] #### [facility] [address] [place] [address], [facility] Erythrocyte distribution width (RBC) [Ratio] 14.6 % Normal 11.5-15.0 [facility] Comment on above: Order Comment: No: D o not add to previous draw Performed By: #### 8 [id number] #### [facility] [address] [place] [address], [facility] Hematocrit (Bld) [Volume fraction] 34.2 % Low 39.0-50.0 [facility] Comment on above: Order Comment: No: D o not add to previous draw Performed By: #### 8 [id number] #### [facility] [address] [place] [address], [facility] Hemoglobin (Bld) [Mass/Vol] 10.3 g/dL Low 13.0-17.0 [facility] Comment on above: Order Comment: No: D o not add to previous draw Performed By: #### 8 [id number] #### [facility] [address] [facility] [place] [address], [facility] IMMATURE GRANS 1.4 % High 0.0-1.0 [facility] Comment on above: Order Comment: No: D o not add to previous draw Performed By: #### 8 [id number] #### [facility] [address] [place] [place] [address], [facility] Lymphocytes (Bld) [#/Vol] 1.3 10*3/uL Normal 1.2-4.0 [facility] Comment on above: Order Comment: No: D o not add to previous draw Performed By: #### 8 [id number] #### [facility] [address] [place] [id number], [facility] Lymphocytes/100 WBC (Bld) 11.3 % Low 20.0-45.0 [facility] Comment on above: Order Comment: No: D o not add to previous draw Performed By: #### 8 [id number] #### [facility] [address] [place] [id number], [facility] MCH (RBC) [Entitic mass] 27.0 pg Normal 27.0-33.0 [facility] Comment on above: Order Comment: No: D o not add to previous draw Performed By: #### 8 [id number] #### [facility] [address] [place] [id number], [facility] MCHC (RBC) [Mass/Vol] 30.1 g/dL Low 32.0-35.0 [facility] Comment on above: Order Comment: No: D o not add to previous draw Performed By: #### 8 [id number] #### [facility] [address] [place] [address], [facility] MCV (RBC) [Entitic vol] 89.5 fL Normal 82.0-98.0 [facility] Comment on above: Order Comment: No: D o not add to previous draw Performed By: #### 8 [id number] #### [facility] [address] [place] [address], [facility] Monocytes (Bld) [#/Vol] 1.4 10*3/uL High 0.1-1.0 [facility] Comment on above: Order Comment: No: D o not add to previous draw Performed By: #### 8 [id number] #### [facility] [address] [place] [address], [facility] MONOS 12.6 % High 5.0-12.0 [facility] Comment on above: Order Comment: No: D o not add to previous draw Performed By: #### 8 [id number] #### [facility] [address] [place] [id number], [facility] Neutrophils/100 WBC (Bld) 69.9 % Normal 40.0-72.0 [facility] Comment on above: Order Comment: No: D o not add to previous draw Performed By: #### 8 [id number] #### [facility] [address] [place] [address], [facility] Nucleated RBC/100 WBC (Bld) [Ratio] 0 % Normal 0-0 [facility] Comment on above: Order Comment: No: D o not add to previous draw Performed By: #### 8 [id number] #### [facility] [address] [place] [address], [place] PLAT CNT 292 10*3/uL Normal 150-400 [facility] Comment on above: Order Comment: No: D o not add to previous draw Performed By: #### 8 [id number] #### [facility] [address] [place] [address], [facility] RBC (Bld) [#/Vol] 3.82 10*6/uL Low 4.20-5.70 [facility] Comment on above: Order Comment: No: D o not add to previous draw Performed By: #### 8 [id number] #### [facility] [address] [place] [id number], [facility] WBC (Bld) [#/Vol] 11.28 10*3/uL High 4.00-10.60 [facility] Comment on above: Order Comment: No: D o not add to previous draw Performed By: #### 8 [id number] #### [facility] [address] [place] [id number], [facility] COMP METABOLIC PANELon 07-14 Albumin [Mass/Vol] 3.1 g/dL Low 3.5-5.7 [facility] Comment on above: Order Comment: No: D o not add to previous draw Performed By: #### 8 [id number] #### [facility] [address] [place] [id number], [facility] ALKALINE PHOSPH 77 IU/L Normal 34-104 [facility] Comment on above: Order Comment: No: D o not add to previous draw Performed By: #### 8 [id number] #### [facility] [address] [place] [address], [place] ALT [Catalytic activity/Vol] 8 U/L Normal 7-52 [facility] Comment on above: Order Comment: No: D o not add to previous draw Performed By: #### 8 [id number] #### [facility] [address] [place] [address], [place] AST [Catalytic activity/Vol] 11 U/L Low 13-39 [facility] Comment on above: Order Comment: No: D o not add to previous draw Performed By: #### 8 [id number] #### [facility] [address] [place] [address], [place] Bilirubin [Mass/Vol] 0.3 mg/dL Normal 0.3-1.0 [facility] Comment on above: Order Comment: No: D o not add to previous draw Performed By: #### 8 [id number] #### [facility] [address] [place] [address], [place] Calcium [Mass/Vol] 8.8 mg/dL Normal 8.6-10.3 [facility] Comment on above: Order Comment: No: D o not add to previous draw Performed By: #### 8 [id number] #### [facility] [address] [place] [address], [place] Chloride [Moles/Vol] 101 mmol/L Normal 98-107 [facility] Comment on above: Order Comment: No: D o not add to previous draw Performed By: #### 8 [id number] #### [facility] [address] [place] [address], [place] CO2 [Moles/Vol] 22 mmol/L Normal 21-31 [facility] Comment on above: Order Comment: No: D o not add to previous draw Performed By: #### 8 [id number] #### [facility] [address] [place] [address], [place] Creatinine [Mass/Vol] 3.38 mg/dL High 0.70-1.30 [facility] Comment on above: Order Comment: No: D o not add to previous draw Performed By: #### 8 [id number] #### [facility] [address] [place] [address], [place] eGFR- 23 ml/min/1.73sq m Abnormal >60 [facility] Comment on above: Order Comment: No: D o not add to previous draw Performed By: #### 8 [id number] #### [facility] [address] [place] [address], [place] eGFR- non- 19 ml/min/1.73sq m Abnormal >60 [facility] Comment on above: Order Comment: No: D o not add to previous draw Performed By: #### 8 [id number] #### [facility] [address] [place] [address], [place] Glucose [Mass/Vol] 324 mg/dL High 70-100 [facility] Comment on above: Order Comment: No: D o not add to previous draw Performed By: #### 8 [id number] #### [facility] [address] [place] [address], [place] Potassium [Moles/Vol] 4.5 mmol/L Normal 3.5-5.1 [facility] Comment on above: Order Comment: No: D o not add to previous draw Performed By: #### 8 [id number] #### [facility] [address] [place] [address], [place] Protein [Mass/Vol] 6.7 g/dL Normal 6.0-8.3 [facility] Comment on above: Order Comment: No: D o not add to previous draw Performed By: #### 8 [id number] #### [facility] [address] [place] [address], [place] Sodium [Moles/Vol] 131 mmol/L Low 136-145 [facility] Comment on above: Order Comment: No: D o not add to previous draw Performed By: #### 8 [id number] #### [facility] [address] [place] [address], [facility] Urea nitrogen [Mass/Vol] 27 mg/dL High 7-25 [facility] Comment on above: Order Comment: No: D o not add to previous draw Performed By: #### 8 [id number] #### [facility] [address] [place] [phone], [facility] CREATININE URINE RANDOMon Creatinine (U) [Mass/Vol] 101.0 mg/dL Normal [facility] Comment on above: Order Comment: No: D o not add to previous draw Result Comment: Ther e are no established reference values for random urine specimens Performed By: #### 8 [id number] #### [facility] [address] [place] [address], [facility] FLUID CELL COUNTon 1 Basophils/100 WBC (Bld) 1 % Normal [facility] Comment on above: Performed By: #### 8 [id number] #### [facility] [address] [place] [address], [facility] Eosinophils/100 WBC (Bld) 11 % Normal [facility] Comment on above: Performed By: #### 8 [id number] #### [facility] [address] [place] [address], [facility] Lymphocytes/100 WBC (Bld) 49 % Normal [facility] Comment on above: Performed By: #### 8 [id number] #### [facility] [address] [place] [address], [facility] MESOTHELIAL 12 % Normal [facility] Comment on above: Performed By: #### 8 [id number] #### [facility] [address] [place] [address], [place] OTHER F1 Diff done by cytospin Normal [facility] Comment on above: Performed By: #### 8 [id number] #### [facility] [address] [place] [address], [facility] OTHER F3 Checked by Evelyn Rodriguez M.D. Normal [facility] Comment on above: Result Comment: Resu lt changed by ERR on 07/15/2020 13:33. The previous value was Preliminary report; verified report to follow. Performed By: #### 8 [id number] #### [facility] [address] [place] [id number], [facility] RBC [address] RBC/uL Normal [facility] Comment on above: Performed By: #### 8 [id number] #### [facility] [address] [place] [address], [facility] SEGS 27 % Normal [facility] Comment on above: Performed By: #### 8 [id number] #### [facility] [address] [place] [address], [facility] SOURCE Thoracentesis Normal [facility] Comment on above: Performed By: #### 8 [id number] #### [facility] [address] [place] [address], [facility] TOTAL VOLUME 1L Normal [facility] Comment on above: Performed By: #### 8 [id number] #### [facility] [address] [place] [address], [facility] WBC 1762 WBC/uL Normal [facility] Comment on above: Result Comment: Some reference interval(s) and other method performance specifications have not been established for analytes on this body fluid. The test result must be integrated into the clinical context for interpretation. Performed By: #### 8 [id number] #### [facility] [address] [place] [address], [facility] GLUCOSE FLUID MISCon -18-2 021 Glucose [Mass/Vol] 326 mg/dL Normal [facility] Comment on above: Result Comment: The reference range and other method performance specifications have not been established for this test in fluids. the test result should be integrated into the clinical context for interpretation. Performed By: #### 3 1943 #### [facility] [address] [place] [address], [facility] HEMOGLOBIN A1Con 07-14-2020 Glucose [Moles/Vol] 295 mmol/L Normal [facility] Comment on above: Order Comment: Left Peural Effusion Performed By: #### 3 8 #### [facility] [address] [place] [address], [facility] HbA1c (Bld) [Mass fraction] 11.9 % High 4.0-6.0 [facility] Comment on above: Order Comment: Left Peural Effusion Performed By: #### 3 317 #### [facility] [address] [place] [address], [facility] HEPATITIS B SURFACE ANTIGEN QUALon 07-14-2020 HEP B SURF AG QUAL Non-Reactive Normal NONREACTIVE [facility] Comment on above: Order Comment: No: D o not add to previous draw Performed By: #### 3 1943 #### [facility] [address] [place] [address], [facility] HEPATITIS C ANTIBODYon 07-14 ANTI-HCV Non-Reactive Normal NONREACTIVE [facility] Comment on above: Order Comment: No: D o not add to previous draw Performed By: #### 3 1943 #### [facility] [address] [place] [address], [facility] LDH BLOODon 07-14-2020 LDH 176 Units/L Normal 140-271 [facility] Comment on above: Order Comment: Left Peural Effusion Performed By: #### 3 8 #### [facility] [address] [place] [address], [facility] LDH 133 Units/L Low 140-271 [facility] Comment on above: Order Comment: No: D o not add to previous draw Performed By: #### 8 [id number] #### [facility] [address] [place] [address], [facility] LDH FLUIDon 07-14-2020 LDH 212 Units/L Normal [facility] Comment on above: Result Comment: The reference range and other method performance specifications have not been established for this test in fluids. the test result should be integrated into the clinical context for interpretation. Performed By: #### 3 1944 #### [facility] [address] [place] [address], [facility] LIPID PROFILEon 07-14-2020 Cholesterol [Mass/Vol] 95 mg/dL Low 120-200 [facility] Comment on above: Order Comment: No: D o not add to previous draw Result Comment: CHOL ESTEROL REFERENCE RANGE: 20 YEARS AND OLDER CARDIOVASCULAR RISK Less than 200 mg/dl Low Risk 200 to 239 mg/dl Borderline Risk 240 mg/dl and greater High Risk Performed By: #### 8 [id number] #### [facility] [address] [facility] [place] [address], [facility] Cholesterol in HDL [Mass/Vol] 36 mg/dL Normal 23-92 [facility] Comment on above: Order Comment: No: [...] [id number] #### [facility] [address] [place] [address], [facility] Cholesterol in LDL [Mass/Vol] 37 mg/dL Normal 0-130 [facility] Comment on above: Order Comment: No: D o not add to previous draw Result Comment: LDL IS A CALCULATION LDL IS ONLY VALID IF THE TRIG IS LESS THAN 400. Performed By: #### 8 [id number] #### [facility] [address] [place] [address], [facility] Cholesterol.total/ Cholesterol in HDL [Mass ratio] 2.6 {ratio} Normal 0.0-4.5 [facility] Comment on above: Order Comment: No: D o not add to previous draw Performed By: #### 8 [id number] #### [facility] [address] [place] [address], [facility] NON-HDL CHOLESTEROL 59 mg/dL Normal [facility] Comment on above: Order Comment: No: D o not add to previous draw Performed By: #### 8 [id number] #### [facility] [address] [place] [address], [facility] Triglyceride [Mass/Vol] 109 mg/dL Normal 40-149 [facility] Comment on above: Order Comment: No: D o not add to previous draw Result Comment: TRIG LYCERIDE REFERENCE RANGE: 20 YEARS AND OLDER CARDIOVASCULAR RISK LESS THAN 150 mg/dl LOW RISK 150 TO 199 mg/dl BORDERLINE RISK 200 mg/dl AND GREATER HIGH RISK Performed By: #### 8 [id number] #### [facility] [address] [place] [address], [facility] VLDL CHOL 22 mg/dL Normal 0-40 [facility] Comment on above: Order Comment: No: D o not add to previous draw Performed By: #### 8 [id number] #### [facility] [address] [place] [address], [facility] MAGNESIUM BLOODon 07-14-2020 Magnesium [Mass/Vol] 2.1 mg/dL Normal 1.9-2.7 [facility] Comment on above: Order Comment: No: D o not add to previous draw Performed By: #### 8 [id number] #### [facility] [address] [place] [address], [facility] Magnesium [Mass/Vol] 2.0 mg/dL Normal 1.9-2.7 [facility] Comment on above: Performed By: #### 8 [id number] #### [facility] [address] [place] [id number], [facility] PHOSPHORUS BLOODon Phosphate [Mass/Vol] 4.1 mg/dL Normal 2.5-5.0 [facility] Comment on above: Order Comment: No: D o not add to previous draw Performed By: #### 8 [id number] #### [facility] [address] [place] [address], [facility] Phosphate [Mass/Vol] 4.0 mg/dL Normal 2.5-5.0 [facility] Comment on above: Performed By: #### 8 [id number] #### [facility] [address] [facility] [address], [place] POC GLUCOSE LABon 07-14-2020 Glucose [Mass/Vol] 180 mg/dL High 70-100 [facility] Comment on above: Performed By: #### 8 [id number] ####[facility] [place] [address], [place] Glucose [Mass/Vol] 198 mg/dL High 70-100 [facility] Comment on above: Performed By: #### 5 7307, 77060 #### [facility] [address] [facility] [address], [place] Glucose [Mass/Vol] 265 mg/dL High 70-100 [facility] Comment on above: Performed By: #### 8 [id number] #### [facility] [address] [place] [address], [place] Glucose [Mass/Vol] 305 mg/dL High 70-100 [facility] Comment on above: Performed By: #### 5 7307, [id number] #### [facility] [address] [facility] [address], [place] Glucose [Mass/Vol] 301 mg/dL High 70-100 [facility] Comment on above: Performed By: #### 5 0103 #### [facility] [address] [place] [address], [place] PORTABLE CHEST 1 VIEWon 06-27 PORTABLE CHEST 1 VIEW [facility] Department of Radiology [address] [place] [address] Patient Name: RASHARD LYMAN : 1960 Sex: M Age: Race: White Pt. Location: [address] [place] [address] Patient Status: I Ordered Date: 07/14/2020 1:40:00 [...] above Electronically signed: Patricia Damon. Transcribed by: [email or web address], User Resident: Electronically Signed by: PATRICIA DAMON @ 07/14/2020 03:24 PM Normal [facility] Comment on above: Order Comment: Evalu ate for Pneumothorax PORTABLE CHEST 1 VIEW [facility] Department of Radiology [address] [place] [id number] Patient Name: RASHARD LYMAN : 1960 Sex: M Age: Race: White Pt. Location: [address] [place] [address] Patient Status: I Ordered Date: 07/13/2020 11:35:00 [...] reports Electronically signed: Valdemar Foster. Transcribed by: [email or web address], User Resident: [email or web address] Electronically Signed by: VALDEMAR FOSTER @ 07/14/2020 06:31 AM I personally read this/these film(s) with this resident Normal [facility] Comment on above: Order Comment: evalu ate for Effusion PROTEIN ELECT Truong 07-14-2020 Protein [Mass/Vol] 6.0 g/dL Normal 6.0-8.3 [facility] Comment on above: Performed By: #### 3 0318 #### [facility] [address] [place] [address], [facility] PROTEIN ELECT Normal [facility] Comment on above: Result Comment: Decr eased albumin and elevated alpha 1 and 2 suggests acute inflammation. Performed By: #### 3 0318 #### [facility] [address] [place] [address], [facility] PROTEIN ELECT URon 1 PROTEIN ELECT Urine protein electrophoresis suggests a nonselective nephropathy. Normal [facility] Comment on above: Performed By: #### 3 1944 #### [facility] [address] [facility] [place] [address], [facility] PROTEIN TOTAL BLOODon 2020 Protein [Mass/Vol] 6.7 g/dL Normal 6.0-8.3 [facility] Comment on above: Order Comment: Left Peural Effusion Performed By: #### 3 0318 #### [facility] [address] [place] [address], [facility] PROTHROMBIN TIMEon 1 INR Coag (PPP) [Relative time] 1.12 {INR} Normal 0.91-1.16 [facility] Comment on above: Order Comment: No: D o not add to previous draw Result Comment: ACCC P RECOMMENDED INR FOR WARFARIN THERAPY ----- ------- CONDITION INR PROPHYLAXIS OF VENOUS THROMBOSIS 2-3 (HIGH-RISK SURGERY) TREATMENT OF VENOUS THROMBOSIS 2-3 TREATMENT OF PULMONARY EMBOLISM 2-3 PREVENTION OF SYSTEMIC EMBOLISM: 2-3 ACUTE MYOCARDIAL INFARCTION TISSUE HEART VALVES VALVULAR HEART DISEASE ATRIAL FIBRILLATION RECURRENT SYSTEMIC EMBOLISM MECHANICAL HEART VALVE 2.5-3.5 FROM: ORAL ANTICOAGULANTS. MECHANISM OF ACTION, CLINICAL EFFECTIVENESS, AND OPTIMAL THERAPEUTIC RANGE. CHEST 1995;108:231S-246S. Performed By: #### 5 [id number], [id number] #### [facility] [address] [place] [address], [facility] PT Coag (PPP) [Time] 14.4 s Normal 12.3-14.8 [facility] Comment on above: Order Comment: No: D o not add to previous draw Result Comment: ALL RESULTS MUST BE INTERPRETED WITH RESPECT TO BLOOD DRAWING ARTIFACT OR DILUTION ERROR OF ANTICOAGULANT AT THE TIME OF SAMPLING. Performed By: #### 5 [id number], 67311 #### [facility] [address] [place] [address], [facility] SEDIMENTATION RATEon 021 SED RATE 32 mm/hr High 0-10 [facility] Comment on above: Performed By: #### 8 [id number] #### [facility] [address] [place] [address], [facility] SODIUM URINE RANDOMon 2020 Sodium (U) [Moles/Vol] 59 mmol/L Normal [facility] Comment on above: Order Comment: No: D o not add to previous draw Result Comment: Ther e are no established reference values for random urine specimens Performed By: #### 8 [id number] #### [facility] [address] [place] [address], [place] T PROT FLUIDon 07-14-2020 Protein [Mass/Vol] 3.6 g/dL Normal [facility] Comment on above: Result Comment: The reference range and other method performance specifications have not been established for this test in fluids. the test result should be integrated into the clinical context for interpretation. Performed By: #### 3 1944 #### [facility] [address] [place] [address], [place] T PROT UR Loretta 07-14-2020 U TOTAL PROTEIN 859.0 mg/dL Normal [facility] Comment on above: Order Comment: No: D o not add to previous draw Result Comment: Ther e are no established reference values for random urine specimens Performed By: #### 8 [id number] #### [facility] [address] Performed By: #### 3 1944 #### [facility] [address] [facility]. [address] TROPONIN-Ion 07-14-2020 Troponin I.cardiac [Mass/Vol] 0.09 ng/mL High 0.00-0.04 [facility] Comment on above: Order Comment: No: D o not add to previous draw Result Comment: REFE RENCE RANGES: 0.00 - 0.04 ng/ml NORMAL 0.05 - 0.50 ng/ml INDETERMINATE > 0.50 ng/ml CONSISTENT WITH AN M.I. Performed By: #### 8 [id number] #### [facility] [address] Troponin I.cardiac [Mass/Vol] 0.07 ng/mL High 0.00-0.04 [facility] Comment on above: Order Comment: No: D o not add to previous draw Result Comment: REFE RENCE RANGES: 0.00 - 0.04 ng/ml NORMAL 0.05 - 0.50 ng/ml INDETERMINATE > 0.50 ng/ml CONSISTENT WITH AN M.I. Performed By: #### 8 [id number] #### [facility] [address] TSH3on 07-14-2020 TSH 3RD GENERATION 3.28 uIU/mL Normal 0.34-5.60 [facility] Comment on above: Order Comment: No: D o not add to previous draw Performed By: #### 8 [id number] #### [facility] [address] URIC ACID BLOODon 07-14-2020 Urate [Mass/Vol] 7.1 mg/dL Normal 4.4-7.6 [facility] Comment on above: Performed By: #### 8 [id number] #### [facility] [address] [place] [address], [facility] URINALYSIS REFLEXon 07-15-19 21 Appearance (U) SL CLOUDY Abnormal CLEAR [facility] Comment on above: Order Comment: Left Peural Effusion Performed By: #### 3 0318 #### [facility] [address] [place] [address], [place] Bilirubin Ql (U) Negative Normal NEGATIVE [facility] Comment on above: Order Comment: Left Peural Effusion Performed By: #### 3 0318 #### [facility] [address] [place] [address], [facility] Color (U) YELLOW Normal YELLOW [facility] Comment on above: Order Comment: Left Peural Effusion Performed By: #### 3 0318 #### [facility] [address] [place] [address], [facility] EPIS FEW Normal FEW,OCC,NONE SEEN [facility] Comment on above: Order Comment: Left Peural Effusion Performed By: #### 3 0318 #### [facility] [address] [place] [address], [place] Glucose Ql (U) >=500 Abnormal NEGATIVE [facility] Comment on above: Order Comment: Left Peural Effusion Performed By: #### 3 0318 #### [facility] [address] [place] [address], [place] Hemoglobin Ql (U) TRACE Abnormal NEGATIVE [facility] Comment on above: Order Comment: Left Peural Effusion Performed By: #### 3 0318 #### [facility] [address] [place] [address], [place] KETONE TRACE Abnormal NEGATIVE [facility] Comment on above: Order Comment: Left Peural Effusion Performed By: #### 3 0318 #### [facility] [address] [place] [address], [facility] LEUK JACIEL Negative Normal NEGATIVE [facility] Comment on above: Order Comment: Left Peural Effusion Performed By: #### 3 0318 #### [facility] [address] [place] [address], [facility] MUCUS THREADS OCC Abnormal NONE SEEN [facility] Comment on above: Order Comment: Left Peural Effusion Performed By: #### 3 0318 #### [facility] [address] [place] [address], [facility] Nitrite Ql (U) Negative Normal NEGATIVE [facility] Comment on above: Order Comment: Left Peural Effusion Performed By: #### 3 0318 #### [facility] [address] [place] [address], [facility] pH (U) 6.0 [pH] Normal 5.0-8.0 [facility] Comment on above: Order Comment: Left Peural Effusion Performed By: #### 3 0318 #### [facility] [address] [place] [address], [facility] Protein Ql (U) >=500 Abnormal NEGATIVE [facility] Comment on above: Order Comment: Left Peural Effusion Performed By: #### 3 0318 #### [facility] [address] [place] [address], [facility] RBC 0-2 Abnormal NONE SEEN [facility] Comment on above: Order Comment: Left Peural Effusion Performed By: #### 3 0318 #### [facility] [address] [place] [address], [place] SPEC GRAV 1.017 Normal 1.015-1.020 [facility] Comment on above: Order Comment: Left Peural Effusion Performed By: #### 3 0318 #### [facility] [address] [place] [address], [place] WBC UA 3-5 Abnormal NONE SEEN [facility] Comment on above: Order Comment: Left Peural Effusion Performed By: #### 3 0318 #### [place] [address] [address] Vital Signs Date Time Vital Sign Value Performing Clinician Facility 02-27-2024 11:25-0400 Body height 193 cm Nima Lee MD Work Phone: [facility] 02-27-2024 11:25-0400 Body mass index (BMI) [Ratio] 28 kg/m2 Nima Lee MD Work Phone: [facility] 02-27-2024 11:25-0400 Body temperature 97.11 [degF] Nima Lee MD Work Phone: [facility] 02-27-2024 11:25-0400 Body weight 104.33 kg Nima Lee MD Work Phone: [facility] 02-27-2024 11:25-0400 Diastolic blood pressure 80 mm[Hg] Nima Lee MD Work Phone: [facility] 02-27-2024 11:25-0400 Heart rate 78 /min Nima Lee MD Work Phone: [facility] 02-27-2024 11:25-0400 SaO2% (BldA) [Mass fraction] 98 % Nima Lee MD Work Phone: [facility] 02-27-2024 11:25-0400 Systolic blood pressure 130 mm[Hg] Nima Lee MD Work Phone: [facility] 03-21-2021 15:40-0500 Body height 193.04 cm Kike Pollack Other [facility] Other 03-21-2021 15:40-0500 Body mass index (BMI) [Ratio] 39.02 kg/m2 Kike Pollack Other [facility] Other 03-21-2021 15:40-0500 Body temperature 97.8 [degF] Kike Pollack Other [facility] Other 03-21-2021 15:40-0500 Body weight 145.42 kg Kike Pollack Other [facility] Other 03-21-2021 15:40-0500 Diastolic blood pressure 84 mm[Hg] Kike Pollack Other [facility] Other 03-21-2021 15:40-0500 Respiratory rate 18 /min Kike Pollack Other [facility] Other 03-21-2021 15:40-0500 SaO2% (BldA) [Mass fraction] 96 % Kike Pollack Other [facility] Other 03-21-2021 15:40-0500 Systolic blood pressure 137 mm[Hg] Kike Pollack Other [facility] Other 08-25-2020 12:24-0400 Heart rate 82 /min Jose Forteone Work Phone: [facility] 08-25-2020 [...] [Ratio] 43.8 kg/m2 Jose Valone Work Phone: [facility] 08-18-2020 21:22-0400 Body temperature 97.6 [degF] Jose Valone Work Phone: [facility] 08-18-2020 21:22-0400 Body weight 163.3 kg Jose Forteone Work Phone: [facility] 08-18-2020 21:22-0400 Diastolic blood pressure 80 mm[Hg] Jose Valone Work Phone: [facility] 08-18-2020 21:22-0400 Heart rate 105 /min Jose Valone Work Phone: [facility] 08-18-2020 21:22-0400 Respiratory rate 18 /min Jose Forteone Work Phone: [facility] 08-18-2020 21:22-0400 SaO2% (BldA) [Mass fraction] 94 % Jose Valone Work Phone: [facility] 08-18-2020 21:22-0400 Systolic blood pressure 160 mm[Hg] Jose Valone Work Phone: [facility] Encounters Encounter Date Encounter Type Care Provider Facility Start: 08-28-2024 End: 08-28-2024 ambulatory Chino Elliott [facility] Work Phone: Start: 08-28-2024 End: 08-28-2024 Departed Referred Chino Elliott DPM Work Phone: [facility] Start: 02-27-2024 End: 02-27-2024 Office outpatient visit 25 minutes Nima Lee MD Work Phone: [facility] Comment on above: 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) Start: 02-17-2024 End: 02-17-2024 ambulatory [facility] Start: 01-20-2024 End: 01-20-2024 ambulatory [facility] Start: 12-16-2023 End: 12-16-2023 ambulatory [facility] Start: 11-19-2023 End: 11-19-2023 ambulatory [facility] Start: 10-23-2023 End: 10-23-2023 ambulatory [facility] Start: 09-03-2023 End: 09-03-2023 ambulatory [facility] Start: 07-31-2023 End: 07-31-2023 ambulatory [facility] Start: 07-02-2023 End: 07-02-2023 ambulatory [facility] Start: 06-04-2023 End: 06-04-2023 ambulatory [facility] Start: 05-31-2023 End: 06-01-2023 ambulatory JUANCARLOS LEHMAN [facility] Start: 05-06-2023 End: 05-06-2023 ambulatory [facility] Start: 04-19-2023 End: 04-19-2023 ambulatory [facility] Start: 02-27-2023 End: 02-28-2023 ambulatory CHINO Hopson [facility] Start: 09-11-2022 End: 09-12-2022 ambulatory [facility] Facility:H1 Start: 08-28-2022 End: 08-29-2022 [facility] Start: 08-24-2022 End: 08-25-[address] JOSE JUAREZ Facility:H1 Start: 08-20-2022 End: 08-21-[address] JOSE JUAREZ Facility:H1 Start: 08-19-2022 Encounter for preprocedural cardiovascular examination [facility] Start: 08-19-2022 Encounter for preprocedural laboratory examination [facility] Mark Anthony [facility] Start: 08-19-2022 Encounter for preprocedural respiratory examination [facility] Mark Anthony [facility] Start: 08-15-2022 End: 08-16-[address] JOSE [...] Start: 02-02-2022 End: 02-03-2022 ambulatory CHINO Hopson [facility] Facility:H1 Start: 01-26-2022 End: 01-27-2022 ambulatory CHINO D [facility] Facility:H1 Start: 01-18-2022 End: 01-19-2022 ambulatory PETER D [facility] Facility:H1 Start: 01-15-2022 End: 01-15-2022 ambulatory CHINO D [facility] Facility:H1 Start: 01-12-2022 End: 01-13-[address] [facility] D [facility] Facility:H1 Start: 01-10-2022 End: 01-11-2022 ambulatory [facility] Facility:H1 Start: 01-02-2022 End: 01-03-[address] [facility] D [facility] Facility:H1 Start: 12-25-2021 End: 12-26-2021 ambulatory CHINO Hopson [facility] Facility:H1 Start: 12-21-2021 End: 12-22-2021 ambulatory SHAIKH Patricia DAVIS Facility:H1 Start: 12-18-2021 End: 12-19-2021 ambulatory [facility] Facility:H1 Start: 12-15-2021 End: 12-16-2021 ambulatory CHINO Hopson [facility] Facility:H1 Start: 12-11-2021 End: 12-12-2021 ambulatory CHINO Mark Anthony [facility] Facility:H1 Start: 11-30-2021 End: 12-01-[address] CARLOS EDUARDO SU . Facility:H1 Start: 11-22-2021 End: 11-23-[address] CARLOS EDUARDO SU . Facility:H1 Start: 11-21-2021 End: 11-22-2021 ambulatory [facility] Start: 11-14-[address] CARLOS EDUARDO SU . Faci lity:H1 Start: 11-13-2021 End: 11-14-2021 ambulatory CHINO Mark Anthony [facility] Facility:H1 Start: 11-07-2021 End: 11-08-2021 ambulatory [facility] Facility:H1 Start: 10-31-2021 End: 11-01-2021 [facility]ulatory [facility] Start: 10-24-2021 End: 10-25-2021 ambulatory CHINO Hopson [facility] Facility:H1 Start: 10-17-2021 End: 10-18-2021 ambulatory CHINO Hopson [facility] Facility:H1 Start: 10-09-2021 End: 10-10-2021 ambulatory CHINO Hopson [facility] Facility:H1 Start: 03-21-2021 End: 03-21-2021 ambulatory Kike Pollack Other [facility] [employer] Other Start: 03-21-2021 Office outpatient vi sit 25 minutes Kike Pollack [facility] Start: 10-20-2020 End: 10-21-2020 ambulatory [facility] Start: 09-28-2020 End: 09-28-2020 Patient encounter procedure Jose Juarez Work Phone: -Respiratory Therapy Start: 09-06-2020 End: 09-06-2020 Patient encounter procedure Jose Juarez Work Phone: -Electrodiagnostics Start: 08-18-2020 End: 08-25-2020 Evaluation and management of inpatient Jose Juarez Work Phone: -[facility] Start: 07-13-2020 End: 07-22-2020 Evaluation and management of inpatient SAVANNAH REYNOLDS Facility:[facility] Procedures Date Procedure Procedure Detail Performing Clinician Start: 05-06-2023 Microalbumin [Mass/v olume] in Urine by Test strip Nima Lee MD Work Phone: Start: 08-20-2020 MR thoracic spine wo con Jose Juarez Work Phone: Start: 08-19-2020 CT abdomen pelvis wo con Jose Juarez Work Phone: Start: 08-19-2020 CT chest wo con Jose Juarez Work Phone: Start: 08-19-2020 Ultrasonography of b ilateral kidneys Jose Larry Work Phone: Start: 08-19-2020 End: 08-19-2020 Aerobic [...] Treatment Date Care Activity Detail Author Start: 02-10-2027 DTaP,Tdap and Td Vac cines (2 - Td or Tdap) DTaP,Tdap and Td Vaccines (2 - Td or Tdap) [employer] Start: 08-28-2024 [facility] Start: 05-06-2024 Urine screening for protein Urine Microalbumin [employer] Start: 02-27-2024 End: 02-26-2025 US.doppler Extremity arteries - bilateral for physiologic artery study Vas art doppler lwr bilat mult lev/PVR Vascular Ultrasound Routine Critical limb ischemia of left lower extremity with gangrene (CMS-HCC) Expected: 02/27/2024, Expires: 02/26/2025 [employer] Work Phone: Comment on above: Expected: 02/27/2024 , Expires: 02/26/2025 Start: 12-29-2023 COVID-19 Vaccine ( season) COVID-19 Vaccine ( season) [facility] Start: 12-29-2023 Influenza vaccination Influenza Vacc ine [facility] Start: 08-18-2020 Bacteria identified in Blood by Culture Blood Culture [facility] Start: 02-04-2010 Administration of varicella zoster vaccine Zoster (Shingles) Vaccine (1 of 2) [facility] Start: 02-04-1978 Adult BMI Screening Adult BMI Screen ing [facility] Start: 02-04-1978 Diabetic foot examination Diabetic F oot Exam [facility] Start: 1972 Depression Screening Depression Scre ening [facility] Start: 1972 Tobacco Screening Tobacco Screening [facility] Start: 1960 Glaucoma screening Diabetic Op hthalmology Exam [facility] Patient referral [facility] Immunizations Immunization Date Immunization Notes Care Provider Fa cility 01-29-2020 influenza virus vacc ine, unspecified formulation Nima Lee MD Work Phone: [facility] 02-10-2017 tetanus toxoid, redu jennifer diphtheria toxoid, and acellular pertussis vaccine, adsorbed Nima Lee MD Work Phone: [facility] 05-27-2015 influenza, seasonal, injectable Kike Pollack Other [facility] 05-27-2015 pneumococcal polysaccharide vaccine, 23 valent Kike Pollack Other [facility] Payers Date Payer Category Payer Unknown [id number] 2017 [employer] Kendrick palmer [employer] - Other [employer] [id number] 1960 Unknown [id number] 2.16.840.1.557455.3.579. 2.647 1960 Unknown [id number] 2.16.840.1.623675.3.579. 2.732 1960 Unknown [id number] 2.16.840.1.990574.3.579. 2.593 1960 Unknown [id number] 2.16.840.1.002146.3.579. 2.593 1960 Unknown [id number] 2.16.840.1.744285.3.579. 2.593 1960 Unknown [id number] 2.16.840.1.763944.3.579. 2.593 1960 Unknown [id number] 2.16.840.1.689678.3.579. 2.593 1960 Unknown [id number] 2.16.840.1.691539.3.579. 2.593 1960 Unknown [id number] 2.16.840.1.408267.3.579. 2.593 1960 Unknown [id number] 2.16.840.1.884724.3.579. 2.593 1960 Unknown [id number] 2.16.840.1.690378.3.579. 2.593 1960 Unknown [id number] 2.16.840.1.307935.3.579. 2.593 1960 Unknown [id number] 2.16.840.1.729542.3.579. 2.593 1960 Unknown [id number] 2.16.840.1.009730.3.579. 2.593 1960 Unknown [id number] 2.16.840.1.941485.3.579. 2.593 1960 Unknown [id number] 2.16.840.1.376368.3.579. 2.593 1960 Unknown [id number] 2.16.840.1.427626.3.579. 2.593 1960 Unknown [id number] 2.16.840.1.957246.3.579. 2.593 1960 Unknown [id number] 2.16.840.1.635916.3.579. 2.593 1960 Unknown [id number] 2.16.840.1.758999.3.579. 2.593 1960 Unknown [id number] 2.16.840.1.273347.3.579. 2.593 1960 Unknown [id number] 2.16.840.1.298460.3.579. 2.593 1960 Unknown [id number] 2.16.840.1.868033.3.579. 2.593 1960 Unknown [id number] 2.16.840.1.873850.3.579. 2.593 1960 Unknown [id number] 2.16.840.1.144779.3.579. 2.593 1960 Unknown [id number] 2.16.840.1.849710.3.579. 2.593 1960 Unknown [id number] 2.16.840.1.213994.3.579. 2.593 1960 Unknown [id number] 2.16.840.1.341983.3.579. 2.593 1960 Unknown [id number] 2.16.840.1.149564.3.579. 2.593 1960 Unknown [id number] 2.16.840.1.200787.3.579. 2.593 1960 Unknown [id number] 2.16.840.1.156261.3.579. 2.593 1960 Unknown [id number] 2.16.840.1.533079.3.579. 2.593 1960 Unknown [id number] 2.16.840.1.607375.3.579. 2.593 1960 Unknown [id number] 2.16.840.1.213328.3.579. 2.593 1960 Unknown [id number] 2.16.840.1.107041.3.579. 2.593 1960 Unknown [id number] 2.16.840.1.471922.3.579. 2.593 1960 Unknown [id number] 2.16.840.1.413623.3.579. 2.593 1960 Unknown [id number] 2.16.840.1.382172.3.579. 2.593 1960 Unknown [id number] 2.16.840.1.655086.3.579. 2.593 1960 Unknown [id number] 2.16.840.1.566457.3.579. 2.593 1960 Unknown [id number] 2.16.840.1.083908.3.579. 2.593 1960 Unknown [id number] 2.16.840.1.277091.3.579. 2.593 1960 Unknown [id number] 2.16.840.1.058950.3.579. 2.593 1960 Unknown [id number] 2.16.840.1.021869.3.579. 2.593 1960 Unknown [id number] 2.16.840.1.747277.3.579. 2.593 1960 Unknown [id number] 2.16.840.1.103400.3.579. 2.593 1960 Unknown [id number] 2.16.840.1.904111.3.579. 2.1286 1960 Unknown [id number] 2.16.840.1.354890.3.579. 2.1286 1960 Unknown [id number] 2.16.840.1.135538.3.579. 2.1286 1960 Unknown [id number] 2.16.840.1.767822.3.579. 2.1285 1960 Unknown [id number] 2.16.840.1.083165.3.579. 2.1286 1960 Unknown [id number] 2.16.840.1.111674.3.579. 2.1286 1960 Unknown [id number] 2.16.840.1.084250.3.579. 2.1286 1960 Unknown [id number] 2.16.840.1.996551.3.579. 2.1286 1960 Unknown [id number] 2.16.840.1.604836.3.579. 2.1286 1960 Unknown [id number] 2.16.840.1.898564.3.579. 2.128 1960 Unknown [id number] 2.16.840.1.135912.3.579. 2.1286 1959 Unknown [id number] Medicare Self Pay [id number] Medicare Medicare [id number] Self-pay Self Pay [id number] Social History Date Type Detail Facility [facility] Start: 1960 Sex Assigned At Male [facility] Start: 08-18-2020 [facility] if ever smoked [facility] Start: 08-22-2020 [facility] Never smoked tobacco (finding) [facility] Start: 06-09-2020 End: 02-27-2024 Sex Assigned At [facility] [employer] Other Start: 02-10-2017 [facility] End: 02-11-2016 History of tobacco use Current smoker [facility] End: 02-11-2016 History of tobacco use Cigarette Smoker [facility] Start: 02-10-2017 Tobacco use and exposure Smokeless tobacco non-user [facility] Start: 02-27-2024 Alcoholic beverage intake Current non-drinker of alcohol (finding) [facility] Start: 06-09-2020 End: 02-27-2024 History of Social function [facility] Childcare Unknown [facility] Start: 1960 Sex assigned at Not on file [facility] Start: 12-02-2014 End: 08-29-2024 Sex Male (finding) [facility] tem Goals Date Patient Goal Desired Activity /State Functional Status Date Assessment Result Facility 08-25-2020 Functional status Patient at Baseline [facility] Mental Status Date Assessment Result Facility 08-25-2020 Cognitive function Cognitive Sta tus Patient at Baseline [facility] Clinical Notes 07-15-2020 to 02-27-2024 Assessment & Plan Note - Nima Lee MD - 02/27/2024 11:44 AM EDTAssessment & Plan Note - Nima Lee MD - 02/27/2024 11:44 AM EDTMbernard Lee MD - 02/27/2024 11:20 AM EDT Note Date & Type Note Facility 02-27-2024 Evaluation + Plan note Associated Problem(s): Critical limb ischemia of left lower extremity with gangrene ([facility]) PVR [facility] 02-27-2024 Miscellaneous Notes Associate d Problem(s): Critical limb ischemia of left lower extremity with gangrene ([facility]) PVR documented in this encounter [facility] 02-27-2024 History of Presen t illness Narrative Images from the original note were not included. To: JOSE JUAREZ JR, DO HPI: Rashard Lyman is a 64 y.o. male with Left lower extremity TMA. He has a wound in his plantar surface that is nonhealing. Most recent vascular testing was done month ago or 11 months ago and he was normal. He does not have any recent testing. He was sent to me because of nonhealing wound concern of critical ischemia. Discussed with him vascular testing to identify the blood flow to his leg and further plans will be dictated accordingly.. Review of Systems: Review of Systems Constitutional: Negative. HENT: Negative. Respiratory: Negative. Cardiovascular: Negative. Gastrointestinal: Negative. Endocrine: Negative. Genitourinary: Negative. Musculoskeletal: Negative. Skin: Negative. Neurological: Negative. Hematological: Negative. Medications: Current Outpatient Medications on File Prior to Visit Medication Sig Dispense Refill albuterol (PROVENTIL HFA) 90 mcg/actuation inhaler Inhale 2 puffs every 6 (six) hours as needed for wheezing. buPROPion SR (WELLBUTRIN SR) 150 mg 12 hr tablet Take 1 tablet (150 mg total) by mouth in the morning. calcium acetate (PHOSLO) 667 mg capsule Take 1 tablet by mouth 3 (three) times a day with meals. colesevelam (WELCHOL) 625 mg tablet Take 650 mg by mouth Medrol Dose Pack scheduling ONLY. docusate sodium (STOOL SOFTENER) 100 mg capsule Take 1 capsule (100 mg total) by mouth in the morning and 1 capsule (100 mg total) before bedtime. famotidine (PEPCID) 20 mg tablet Take 1 tablet (20 mg total) by mouth in the morning and 1 tablet (20 mg total) before bedtime. insulin degludec (TRESIBA FLEXTOUCH U-200) 200 unit/mL (3 mL) insulin pen Inject 100 Units under the skin in the morning. insulin glargine-lixisenatide (SOLIQUA 100/33) 100 unit-33 mcg/mL insulin pen Inject 60 Unit under the skin daily. losartan (COZAAR) 50 mg tablet Take 2 tablets (100 mg total) by mouth in the morning. meclizine (ANTIVERT) 25 mg tablet Chew 1 tablet (25 mg total) and swallow in the morning. methotrexate 2.5 mg chemo tablet Take 1 tablet by mouth once a week rosuvastatin (CRESTOR) 10 mg tablet Take 1 tablet (10 mg total) by mouth in the morning. sevelamer (RENAGEL) 400 mg tablet Take 1 tablet (400 mg total) by mouth in the morning. sodium bicarbonate 325 mg tablet Take 1 tablet (325 mg total) by mouth in the morning. biotin 5,000 mcg tablet,disintegrating Dissolve 10,000 mcg on tongue 2 (two) times a day. (Patient not taking: Reported on 02/27/2024) folic acid (FOLVITE) 1 mg tablet Take 1 mg by mouth daily. (Patient not taking: Reported on 02/27/2024) HYDROcodone-acetaminophen (NORCO) 5-325 mg per tablet Take 1 tablet by mouth every 6 (six) hours as needed for pain. (Patient not taking: Reported on 02/27/2024) montelukast (SINGULAIR) 10 mg tablet Take 10 mg by mouth nightly. (Patient not taking: Reported on 02/27/2024) OXcarbazepine (TRILEPTAL) 300 mg tablet Take 300 mg by mouth once daily at bedtime. (Patient not taking: Reported on 02/27/2024) pregabalin (LYRICA) 75 mg capsule Take 1 capsule (75 mg total) by mouth 3 (three) times a day. (Patient not taking: Reported on 02/27/2024) 90 capsule 1 sulfamethoxazole-trimethoprim (BACTRIM DS) 800-160 mg per tablet Take 1 tablet by mouth 2 (two) times a day. (Patient not taking: Reported on 02/27/2024) tamsulosin (FLOMAX) 0.4 mg capsule,extended release 24hr Take 0.4 mg by mouth daily. (Patient not taking: Reported on 02/27/2024) traZODone (DESYREL) 50 mg tablet Take 50 mg by mouth nightly. (Patient not taking: Reported on 02/27/2024) triamcinolone (KENALOG) 0.1 % cream Apply 1 application topically 2 (two) times a day. (Patient not taking: Reported on 02/27/2024) varenicline (CHANTIX) 1 mg tablet Take 1 mg by mouth daily. Take with full glass of water. (Patient not taking: Reported on 02/27/2024) No current facility-administered medications on file prior to visit. Past Medical History: Past Medical History: Diagnosis Date Chronic kidney disease Chronic musculoskeletal pain COPD (chronic obstructive pulmonary disease) ([facility]) Diabetes mellitus ([facility]) Fracture, clavicle History of MRSA (methicillin resistant Staphylococcus aureus) Neuropathy Renal failure Dialysis since 04/2014 Past Surgical History: Past Surgical History: Procedure Laterality Date APPENDECTOMY CHOLECYSTECTOMY DIALYSIS FISTULA CREATION Right arm INJECTION CAUDAL EPIDURAL WITH CATHETER, STEROID N/A 06/05/2019 Performed by Jefferson Bryant MD at [facility] Right 5th TONSILLECTOMY Social and Family History: Social History Socioeconomic History Marital status: Spouse name: Not on file Number of children: Not on file Years of education: Not on file Highest education level: Not on file Occupational History Not on file Tobacco Use Smoking status: Former Current packs/day: 0.00 Types: Cigarettes Quit date: 02/11/2016 Years since quittin.0 Smokeless tobacco: Never Substance and Sexual Activity Alcohol use: No Drug use: No Sexual activity: Not on file Other Topics Concern Not on file Social History Narrative Not on file Social Drivers of Health Financial Resource Strain: Not on file Food Insecurity: No Food Insecurity (02/27/2024) Hunger Screening Food Insecurity - Worry: Never True Food Insecurity - Inability: Never True Transportation Needs: Not on file Physical Activity: Not on file Stress: Not on file Social Connections: Not on file Interpersonal Safety: Not on file Housing Instability: Not on file Family History Problem Relation Age of Onset Asthma Mother Recent Labs: Recent and relative labs were reviewed and interpreted and contributed to the assessment and plan below. Vitals: BP 130/80 (BP Site: Left Arm, BP Postition: Sitting, BP CUFF SIZE: M (9-13 inches)) Pulse 78 Temp 36.2 C (97.1 F) (Temporal) Ht 193 cm (6' 4 ) Wt 104.3 kg (230 lb) SpO2 98% BMI 28.00 kg/m Body mass index is 28 kg/m . Physical Exam: Physical Exam Constitutional: Appearance: Normal appearance. HENT: Head: Normocephalic and atraumatic. Mouth/Throat: Mouth: Mucous membranes are moist. Eyes: Extraocular Movements: Extraocular movements intact. Pupils: Pupils are equal, round, and reactive to light. Cardiovascular: Rate and Rhythm: Normal rate and regular rhythm. Pulmonary: Effort: Pulmonary effort is normal. Breath sounds: Normal breath sounds. Abdominal: General: Abdomen is flat. Bowel sounds are normal. Palpations: Abdomen is soft. Musculoskeletal: General: Normal range of motion. Cervical back: Normal range of motion. Skin: General: Skin is warm and dry. Neurological: General: No focal deficit present. Mental Status: He is alert and oriented to person, place, and time. Mental status is at baseline. Psychiatric: Mood and Affect: Mood normal. Behavior: Behavior normal. Thought Content: Thought content normal. Judgment: Judgment normal. 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 Diagnoses and all orders for this visit: Critical limb ischemia of left lower extremity with gangrene (CMS-HCC) Nima Lee MD, MISTY, RPVI, FSVS, FACS [facility] [facility] This note was created with the assistance of a speech recognition program. While intending to generate a timely document that accurately reflects the content of the visit, no guarantee can be provided that every grammatical or spelling mistake has been or will be identified or corrected. Thank you for your understanding. documented in this encounter [facility] 08-20-2022 Note PROCEDURE: XR FOOT L T [...] authenticated by: PRISCA SANDERSON Date: 2022-08-20 13:00 [facility] 08-15-2022 Note EXAM: XR CHEST 2 V [...] authenticated by: CHINO CABALLERO Date: 2022-08-15 15:06 [facility] 08-01-2022 Note PROCEDURE: XR FOOT L T [...] authenticated by: JAMESON SALGUERO Date: 2022-08-01 07:49 [facility] 03-01-2022 Note CONSULTATION CONSULTATION DATE: 03/01/2022 This [...] with certain activities such as standing, walking, card room manager and evening hours, and changes in [...] agrees with the plan of care. [facility] 03-01-2022 Note CONSULTATION PROCEDURE DATE: 03/01/2022 [...] pattern and patient tolerated procedure well. [facility] 12-22-2021 Note PROCEDURE: XR ANKLE LT [...] authenticated by: PRISCA SANDERSON Date: 2021-12-22 10:12 [facility] 12-22-2021 Note PROCEDURE: XR ANKLE LT MIN [...] authenticated by: PRISCA SANDERSON Date: 2021-12-22 10:12 [facility] 12-22-2021 Note PROCEDURE: XR ANKLE LT MIN [...] authenticated by: PRISCA SANDERSON Date: 2021-12-22 10:12 [facility] 12-22-2021 Note PROCEDURE: XR ANKLE LT 2V HISTORY: Pain ; left ankle external fixation application COMPARISON: None. FINDINGS: BONES:3 intraoperative spot fluoroscopic images demonstrate external fixation device surrounding the left ankle. IMPRESSION: External fixation device application. Electronically authenticated by: PRISCA SANDERSON Date: 2021-12-22 10:07 [facility] 12-12-2021 Note PROCEDURE: XR FOOT L [...] by: PRISCA SANDERSON Date: 2021-12-12 08:04 [facility] 11-30-2021 Note CONSULTATION The patient returns [...] in clinic in three months' time. [facility] 11-22-2021 Note CONSULTATION CONSULTATION DATE: 11/22/2021 [...] written regimen. He presents today with pain 11/05, describes as pressure and sharp. The pain [...] to the clinic to receive those. [facility] 11-14-2021 Note PROCEDURE: XR FOOT L [...] authenticated by: PRISCA SANDERSON Date: 2021-11-14 15:42 [facility] 11-07-2021 Note PROCEDURE: XR FOOT L T [...] authenticated by: JAMESON SALGUERO Date: 2021-11-07 19:28 [facility] 03-21-2021 Evaluation note Encounter Date Diagnosis Assessment [...] takes midodrine as well as stated above. [employer] Other 03-27-2021 NoteMR#: [id number] I [facility] Pt. Name: Rashard Lyman Admitted: 07/13/2020 [...] ON DISCHARGE: A (more content not included)...[facility]03-19-2021 NoteMR#: [id number] [facility] Pt. Name: Rashard Lyman Surgery Date: 07/14/2020 Room #: [id number] Date of : 1960 PROCEDURE NOTE ATTENDING: [...] Pham MD Date Trans: 07/15/2020 01:32 P/ [id number] cc: Nima Wynne MD [address] [place] [id number] NoteMR#: [id number] [facility] Pt. Name: Rashard Lyman Surgery Date: 07/14/2020 Room #: [id number] Date of : 1960 PROCEDURE NOTE ATTENDING: Nima Wynne MD Procedure: Left sided US guided Thoracentesis Pre-procedure Diagnosis: Left pleural effusion Post-procedure Diagnosis: same as above Prior to Procedure: Informed Consent:The risks, benefits, indications, potential complications, and alternatives were explained to the patient/family and informed consent obtained Attending Staff: Nima Wynne Resident/Fellow/CELL TENDER: Davis Pham Indications: Nura Munoz is 60 [...] Wynne MD Date Trans: 07/15/2020 12:53 P/ [id number] [facility] Diagnosis Onset Date Resolution Status Hyperglycemia acute Pneumonia acute Psoriasis acute 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 acute CKD (chronic kidney disease) stage 4, GFR 15-29 ml/min chronic COPD (chronic obstructive pulmonary disease) chronic 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 GERD (gastroesophageal reflux disease) chronic Obesities, morbid chronic Peripheral vascular occlusive disease chronic 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 Diagnosis Onset Date Resolution Status MARISOL (acute kidney injury) ac iroquois Anemia of renal disease acut e Atelectasis of left lung acu te Fibrothorax acute History of pleural effusion acute Metabolic acidosis acute Pericarditis acute Pleuritic chest pain acute Psoriasis acute 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 acute CKD (chronic kidney disease) stage 4, GFR 15-29 ml/min chronic COPD (chronic obstructive pulmonary disease) chronic 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 vasiliy GERD (gastroesophageal reflux disease) chronic Hypertension chronic [id number] chronic Obesities, morbid chronic Peripheral vascular occlusive disease chronic 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* Diagnosis Critical limb ischemia of left lower extremity with gangrene ([facility])- Primary [facility] information available [facility] Work Phone: History general Narrative - Reported* Type Description Date [...] HIS LOWER BACK Hospitalization History see above [facility] Other Hospital Discharge instructions Additional Instructions You are scheduled for an outpatient follow up ECHOCARDIOGRAM in 2 weeks at [facility] to re-assess your pericardial effusions on 09/06/2020 [...] knee Educate on high risk fall precautions [facility] InstructionsNot on filedocumented in this encounterMcKitrick [facility] Assessments No Assessments Information Available Advance Directives No Advanced Directives Records Found Advance Directive Response Recorded Date/ Time Advance Directives No September 30 3:34pm Date Activated Date Inactivated Comments 09/30/2017 12:06 PM 09/30/2017 8:03 PM Chief Complaint and Reason for Visit Chief [...] 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 GERD (gastroesophageal reflux disease) Hypertension [id number] Obesities, morbid Peripheral vascular occlusive disease Status [...] 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 GERD (gastroesophageal reflux disease) Hypertension [id number] Obesities, morbid Peripheral vascular occlusive disease Status [...] 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 GERD (gastroesophageal reflux disease) Hypertension [id number] Obesities, morbid Peripheral vascular occlusive disease Status post amputation of toe of right foot Chief Complaint Admit Date Unknown August 28, 2024 11:03a m Summary Purpose Family History Relationship Condition Age at Onset Recorded Date/T tristan Not Specified Hypertension Unknown father Unknown mother Diabetes mellitus Unknown Heart disease Unknown No Family History Records Found Additional Source Comments (unrecognized sect ion and content) No Status Records FoundNo Status Records FoundNo Status Records FoundNo Status Records FoundNo Status Records FoundNo Status Records FoundNo Status Records Found INFORMATION SOURCE (unrecogn ized section and content) DATE CREATED AUTHOR 09/11/2020 [facility] DATE CREATED AUTHOR AUTHOR'S ORGANIZ ATION 10/21/2020 [facility] DATE CREATED AUTHOR AUTHOR'S ORGANIZ ATION 10/05/2022 [facility] DATE CREATED AUTHOR AUTHOR'S ORGANIZ ATION 06/03/2023 [facility] DATE CREATED AUTHOR AUTHOR'S ORGANIZ ATION 11/22/2023 [facility] DATE CREATED AUTHOR AUTHOR'S ORGANIZ ATION 02/18/2024 [facility] DATE CREATED AUTHOR AUTHOR'S ORGANIZ ATION 09/03/2024 [facility] Goals (unrecognized section and content) Goals may be documented in a n alternate sectionNo InformationNot on filedocumented as of this encounterGoals may be documented in an alternate section REASON FOR VISIT (unrecogniz ed section and content) Reason Comments 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 Non healing. 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 [employer] provides no warranty or guarantee of the accuracy or completeness of information in this document.
--- NOTE | 2024-10-23 22:17 | PC.NURSE ---
Right second toe black in appearance, no open areas or drainage noted.
--- NOTE | 2024-10-23 22:18 | PC.NURSE ---
Circular area under left foot, area is pink in center with surrounding skin intact, serous drainage to area.
--- NOTE | 2024-10-23 22:24 | XR_ITS ---
[facility] [place] [id number] Patient Name: RASHARD TAN MRN: [id number] date: 1960 Sex: M Assigned Patient Location: ER Current Patient Location: ED.MAIN Accession/Order Number: [id number] Exam Date: 10/23/2024 22:57 Report Date: 10/23/2024 23:06 At the request of: SUNDAR JOHNSON Procedure: XR foot RT min 3V RIGHT FOOT - 3 views CLINICAL HISTORY: necrosis 2nd great toe COMPARISON: 08/29/2019 FINDINGS: Stable Postoperative changes status post amputation distal aspect of the first digit as well as the distal fifth metatarsal ray. Soft tissue swelling is present. No soft tissue gas. No acute bony process. Scattered degenerative changes. XR/XR foot RT min 3V IMPRESSION: Stable postsurgical changes. No definite soft tissue gas or definite osseous erosions or periosteal reaction identified. Impression dictated by: Geraldo Barragan M.D. 10/23/2024 11:06 PM Dictation Location: [place] [address] Electronically authenticated by: [id number] Y Date: 10/23/2024 23:06
--- NOTE | 2024-10-23 22:27 | ED.GENADUL1 ---
HPI HPI - General Adult General Chief complaint: Extremity Injury, Lower Stated complaint: LOWER EXTREMITY PAIN/SWELLING Time Seen by Provider: 10/23/24 22:07 Source: patient Mode of arrival: walk-in History of Present Illness HPI narrative: cc - fever and necrotic right foot Pt presents with necrosis of the right second toe, swelling of that toe, discoloration at the base of the toe and distal aspect of the right foot, associated with fever that started yesterday. On August 28, the patient underwent right partial helix amputation due to acute osteomyelitis of the right great toe. He saw Dr. Zambrano for this and told me that he had been doing well. 2 days ago he was evaluated in the office for wound care by Dr. Zambrano, who, according to the patient, did some sort of tissue removal in the office and then clean the area before applying a bandage. The told me that she went to remove the bandage yesterday and that the toe did not look bad but when she tried to remove it today it was blackened and swollen. The said that the patient had been having fever and chills off and on for the last 24 to 30 hours Related Data Home Medications ?Medication ?Instructions ?Recorded ?Confirmed montelukast 10 mg tablet 10 mg PO .QHS 01/28/23 10/23/24 rosuvastatin 20 mg tablet 20 mg PO .QHS 01/28/23 10/23/24 vitamin B complex and vitamin C 1 cap PO QDAY 01/28/23 10/23/24 no.20-folic acid 1 mg capsule (Renal Caps) bupropion HCl 300 mg 24 hr tablet, 300 mg PO QDAY 12/24/23 10/23/24 extended release finerenone 20 mg tablet (Kerendia) 20 mg PO QDAY 12/24/23 10/23/24 multivitamin with minerals-folic 1 tab PO QDAY 12/24/23 10/23/24 acid 400 mcg-lycopene 370 mcg tablet (One-A-Day Men's 50 Plus) sodium bicarbonate 325 mg tablet 325 mg PO TID 12/25/23 10/23/24 duloxetine 60 mg capsule,delayed 60 mg PO .QHS 08/26/24 10/23/24 release empagliflozin 25 mg tablet 25 mg PO DAILY 08/26/24 10/23/24 (Jardiance) famotidine 20 mg tablet 20 mg PO .QHS 08/26/24 10/23/24 torsemide 20 mg tablet 40 mg PO QAM 08/26/24 10/23/24 ciprofloxacin HCl 500 mg tablet 500 mg PO Q24H 10/23/24 10/23/24 doxycycline monohydrate 100 mg 100 mg PO DAILY 10/23/24 10/23/24 capsule Previous Rx's ?Medication ?Instructions ?Recorded insulin aspart U-100 100 unit/mL 3 - 15 unit (0.03 - 0.15 mL) 12/26/23 (3 mL) subcutaneous pen (Novolog subcut ACHS #15 mL FlexPen U-100 Insulin aspart) insulin detemir U-100 100 unit/mL 30 unit (0.3 mL) subcut QHS 30 12/26/23 (3 mL) subcutaneous pen (Levemir days #9 mL FlexPen) Allergies Allergy/AdvReac Type Severity Reaction Status Date / Time No Known Drug Allergies Allergy Verified 10/23/24 22:01 Opioid HPI Opioid Management Most Recent Opioid Data: Last Pain Scale 0 08/29/24, 06:03 Last ORT Total Score 0 08/26/24, 15:34 Last ORT Risk Category Low Risk 08/26/24, 15:34 [facility] Medical History (Updated 10/23/24 @ 23:43 by Levi Diaz) Anemia in CKD (chronic kidney disease) ?N18.9 - Chronic kidney disease, unspecified (ICD-10) ?D63.1 - Anemia in chronic kidney disease (ICD-10) CKD (chronic kidney disease) stage 4, GFR 15-29 ml/min ?N18.4 - Chronic kidney disease, stage 4 (severe) (ICD-10) Type 2 diabetes mellitus with hyperglycemia ?E11.65 - Type 2 diabetes mellitus with hyperglycemia (ICD-10) Equinus contracture of left ankle ?M24.572 - Contracture, left ankle (ICD-10) Type 2 diabetes mellitus with diabetic 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 ?E11.42 - Type 2 diabetes mellitus with diabetic 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 (ICD-10) Type 2 diabetes mellitus with foot ulcer ?E11.621 - Type 2 diabetes mellitus with foot ulcer (ICD-10) ?L97.509 - Non-pressure chronic ulcer of other part of unspecified foot with unspecified severity (ICD-10) Ulcer of left foot with fat layer exposed ?L97.522 - Non-pressure chronic ulcer of other part of left foot with fat layer exposed (ICD-10) Ulcer of right foot with necrosis of bone ?L97.514 - Non-pressure chronic ulcer of other part of right foot with necrosis of bone (ICD-10) Acute osteomyelitis of right foot ?M86.171 - Other acute osteomyelitis, right ankle and foot (ICD-10) Cellulitis of left leg ?L03.116 - Cellulitis of left lower limb (ICD-10) Infection of toe ?L08.9 - Local infection of the skin and subcutaneous tissue, unspecified (ICD-10) Hyperglycemia ?R73.9 - Hyperglycemia, unspecified (ICD-10) Diabetic ulcer of left foot ?E11.621 - Type 2 diabetes mellitus with foot ulcer (ICD-10) ?L97.529 - Non-pressure chronic ulcer of other part of left foot with unspecified severity (ICD-10) DM type 2 (diabetes mellitus, type 2) ?E11.9 - Type 2 diabetes mellitus without complications (ICD-10) CKD (chronic kidney disease) ?N18.9 - Chronic kidney disease, unspecified (ICD-10) CKD (chronic kidney disease) ?N18.9 - Chronic kidney disease, unspecified (ICD-10) Chronic wound ?T14.8XXA - Other injury of unspecified body region, initial encounter (ICD-10) Immunocompromised ?D84.9 - Immunodeficiency, unspecified (ICD-10) Psoriasis ?L40.9 - Psoriasis, unspecified (ICD-10) Sepsis ?A41.9 - Sepsis, unspecified organism (ICD-10) Arteriovenous fistula of right upper extremity ?I77.0 - Arteriovenous fistula, acquired (ICD-10) Chronic kidney disease ?N18.9 - Chronic kidney disease, unspecified (ICD-10) Hyperlipidemia ?E78.5 - Hyperlipidemia, unspecified (ICD-10) Diabetes ?E11.9 - Type 2 diabetes mellitus without complications (ICD-10) Cellulitis of left leg ?L03.116 - Cellulitis of left lower limb (ICD-10) Surgical History History of transmetatarsal amputation of foot ?Z89.439 - Acquired absence of unspecified foot (ICD-10) History of appendectomy ?Z90.49 - Acquired absence of other specified parts of digestive tract (ICD-10) History of cholecystectomy ?Z90.49 - Acquired absence of other specified parts of digestive tract (ICD-10) Amputation of left great toe ?S98.112A - Complete traumatic amputation of left great toe, initial encounter (ICD-10) Family History Mother Family history of CHF (congestive heart failure) Family history of diabetes mellitus Family history of hypertension Grandfather Family history of stroke Social History Within the past year, how often did you have a drink containing alcohol: never Within the past year, how many standard drinks containing alcohol did you have on a typical day: 1 or 2 Within the past year, how often did you have six or more drinks on one occasion: never Total score: 0 Score interpretation: A score less than 4 is consistent with normal alcohol consumption. Smoking status: Current some day smoker Non-prescribed substance use: denies use Previous occupational history: disabled Highest level of school completed/degree received: 11th grade Are you now , , , , never or living with a partner: In a typical week, how many times do you talk on the telephone with family, friends, or neighbors: 3 or more times per week How often do you get together with friends or relatives: 3 or more times per week How often do you attend catholic or hinduism services: never Do you belong to any clubs or organizations such as catholic groups unions, fraternal or athletic groups, or school groups: no Total score: 2 Score interpretation: A score of greater than or equal to 2 indicates the lowest level of social isolation. Little interest or pleasure in doing things: not at all Feeling down, depressed, or hopeless: not at all Feel stressed/tense/nervous/anxious/difficulty sleeping: not at all Do you think of yourself as: straight/heterosexual Gender Identity: male Exam Narrative Exam Narrative: Nurses notes and vital signs reviewed and patient is not hypoxic. afebrile General: Well-appearing and in no apparent distress. Skin: Warm, dry, no pallor noted. No rash. The right foot is detailed below Head: Normocephalic, atraumatic. Neck: Supple, non-tender. Eye: Pupils are equal, round and EOMI. No scleral icterus. Ears, Nose, Mouth, and Throat: TM are clear, no posterior oropharynx erythema or nasal mucosal hypertrophy, uvula is mid-line Oral mucosa is moist Cardiovascular: Regular Rate and Rhythm without murmur, gallop or rub. Respiratory: No accessory muscle use or respiratory distress. Lungs are clear to auscultation, no wheezing, rales or rhonchi Chest Wall: no tenderness Back: No midline thoracic or lumbar vertebral tenderness. No CVA tenderness Musculoskeletal: Right foot -amputation of the right first toe. Second toe is necrotic with blackened skin and surrounding pale skin with what appears to be purulent material subcutaneously. There is extension of the blackened skin which developed into a purpling and erythematous changes proximally through the base of the right second toe. Ulcerative change noticed on the plantar aspect of the right foot Left foot -ulcer on the plantar aspect of the left foot that does not appear to be infected at this time. No purulent discharge or ring of erythema is noted. He has amputation of the toes of the left foot. Right lower leg with 1-2+ pitting edema extending up to the knee. Remaining extremities with normal ROM, no right or left calf or popliteal tenderness. No left lower extremity edema/swelling. Neurological: A&O x4. No cranial nerve dysfunction observed. No truncal ataxia. Moves all extremities. Sensation intact. Psychiatric: Cooperative and interactive. Normal mood and affect. Constitutional Vital Signs, click to edit/add: Last Vital Signs Temp 99.2 F 10/23/24 22:01 Pulse 106 H 10/23/24 23:21 Resp 20 10/23/24 23:21 BP 174/82 H 10/23/24 23:21 Pulse Ox 99 10/23/24 23:21 O2 Del Method Room Air 10/23/24 23:21 Course Vital Signs Vital signs: Vital Signs Temperature 99.2 F 10/23/24 22:01 Pulse Rate 114 H 10/23/24 22:01 Respiratory Rate 20 10/23/24 22:01 Blood Pressure 176/86 H 10/23/24 22:01 Pulse Oximetry 98 10/23/24 22:01 Oxygen Delivery Method Room Air 10/23/24 22:01 Temperature 99.2 F 10/23/24 22:01 Pulse Rate 106 H 10/23/24 23:21 Respiratory Rate 20 10/23/24 23:21 Blood Pressure 174/82 H 10/23/24 23:21 Pulse Oximetry 99 10/23/24 23:21 Oxygen Delivery Method Room Air 10/23/24 23:21 Medical Decision Making MDM Narrative Medical decision making narrative: The patient presents with necrotic changes of the second toe of the right foot -findings are concerning for not just acute infection but likelihood of need for amputation, possible osteomyelitis. Peripheral IV was established and blood drawn and sent for testing including lactate and blood cultures. X-rays of the right foot were obtained. The patient was ordered to receive IV Zosyn and IV vancomycin while we awaited test results. I paged Dr. Zambrano as this patient will obviously need to be admitted to the hospital for further care and surgical evaluation and consultation. WBC minimally elevated at 11.8. Left shift noted. ESR elevated greater than 130, CRP elevated at 23.12. Blood cultures obtained and pending. Lactate was negative. Sodium and chloride minimally decreased at 129, 96 respectively. BUN/creatinine are elevated at 74, 4.92. AST and ALT are also elevated at 60, 74, respectively. He has chronic renal injury/insufficiency but his BUN and creatinine are elevated above baseline today. He was given a liter of saline to run over 2 hours. The on-call hospitalist was paged. I spoke with Maryann about this case and she agreed to admit this patient. He will be admitted under Dr. Rodriguez's service with consultation with Dr. Zambrano for surgical evaluation. The patient understands the need to be admitted and is agreeable. Medical Records Medical records reviewed: Yes I reviewed the patient's medical records Lab Data Lab results reviewed: Yes I reviewed the patient's lab results Labs: Lab Results 10/23/24 Range/Units 22:30 WBC 11.8 H (4.0-11.0) 10^3/uL RBC 4.17 L (4.70-6.10) 10^6/uL Hgb 11.9 L (14.0-18.0) g/dL Hct 36.1 L (42.0-54.0) % MCV 86.6 (80.0-94.0) fL MCH 28.5 (25.9-34.0) pg MCHC 33.0 (29.9-35.2) g/dL RDW 12.9 (11.0-15.0) % Plt Count 274 (150-450) 10^3/uL MPV 8.8 L (9.5-13.5) fL Neut % (Auto) 83.2 H (43.0-75.0) % Lymph % (Auto) 6.2 L (20.5-60.0) % [place] % (Auto) 8.7 (1.7-12.0) % Eos % (Auto) 0.5 L (0.9-7.0) % Baso % (Auto) 0.4 (0.2-2.0) % Neut # (Auto) 9.8 H (1.4-6.5) 10^3/uL Lymph # (Auto) 0.7 L (1.2-3.8) 10^3/uL [place] # (Auto) 1.0 H (0.3-0.8) 10^3/uL Eos # (Auto) 0.1 (0.0-0.7) 10^3/uL Baso # (Auto) 0.1 (0.0-0.1) 10^3/uL Abs Immat Gran (auto) 0.12 H (0.00-0.03) 10^3/uL Imm/Tot Granulo (auto) 1.0 H (0.0-0.5) % ESR >130 H (<=20) mm/hr Sodium 129 L (136-145) mmol/L Potassium 4.9 (3.5-5.1) mmol/L Chloride 96 L (98-107) mmol/L Carbon Dioxide 17.3 L (21.0-32.0) mmol/L Anion Gap 20.6 BUN 74.0 H (7.0-18.0) mg/dL Creatinine 4.92 H (0.70-1.30) mg/dL Est GFR ( Amer) 15 L (>=60 mL/min/1.73m^2) Est GFR (Non-Af Amer) 12 L (>=60 mL/min/1.73m^2) BUN/Creatinine Ratio 15.0 Glucose 302 H (74-106) mg/dL Lactate 1.2 (0.4-2.0) mmol/L Calcium 9.2 (8.5-10.1) mg/dL Total Bilirubin 0.2 (0.2-1.0) mg/dL AST 60 H (15-37) U/L ALT 74 H (16-63) U/L Alkaline Phosphatase 104 (46-116) U/L C-Reactive Protein 23.12 H (<=0.50) mg/dL Total Protein 7.5 (6.4-8.2) g/dL Albumin 2.0 L (3.4-5.0) g/dL Globulin 5.5 g/dL Albumin/Globulin Ratio 0.4 Imaging Data xr foot: Attestation: I have reviewed the pertinent imaging results. Radiologist's impression: ITS Impressions Foot X-Ray 10/23/24 22:24 IMPRESSION: Stable postsurgical changes. No definite soft tissue gas or definite osseous erosions or periosteal reaction identified. Impression dictated by: Geraldo Barragan M.D. 10/23/2024 11:06 PM Dictation Location: [place] [address] Electronically authenticated by: [id number] Y Date: 10/23/2024 23:06 Discharge Plan Discharge Chief Complaint: Extremity Injury, Lower Clinical Impression: Skin ulcer of second toe of right foot with necrosis of muscle Patient Disposition: Admitted As Inpatient Time of Disposition Decision: 23:40
[2024-10-23 22:54] LABS: Basophils Absolute Auto 0.1 10^3/uL (0.0-0.1); Basophils Percent Auto 0.4 % (0.2-2.0); Eosinophils Absolute Auto 0.1 10^3/uL (0.0-0.7); Eosinophils Percent Auto 0.5 % (0.9-7.0); Hematocrit 36.1 % (42.0-54.0); Hemoglobin 11.9 g/dL (14.0-18.0); Immature Granulocytes Abs Auto 0.12 10^3/uL (0.00-0.03); Lymphocytes Absolute Auto 0.7 10^3/uL (1.2-3.8); Lymphocytes Percent Auto 6.2 % (20.5-60.0); Mean Corpuscular Hemoglobin 28.5 pg (25.9-34.0); Mean Corpuscular Volume 86.6 fL (80.0-94.0); Mean Platelet Volume 8.8 fL (9.5-13.5); Monocytes Percent Auto 8.7 % (1.7-12.0); Neutrophils Absolute Auto 9.8 10^3/uL (1.4-6.5); Neutrophils Percent Auto 83.2 % (43.0-75.0); Platelet Count 274 10^3/uL (150-450); Red Blood Count 4.17 10^6/uL (4.70-6.10); Red Cell Distribution Width 12.9 % (11.0-15.0); White Blood Count 11.8 10^3/uL (4.0-11.0)
[2024-10-23 22:58] LABS: Erythrocyte Sedimentation Rate >130 mm/hr (<=20)
[2024-10-23 23:08] LABS: Alanine Aminotransferase 74 U/L (16-63); Albumin Globulin Ratio 0.4; Alkaline Phosphatase 104 U/L (46-116); Anion Gap 20.6; Aspartate Amino Transferase 60 U/L (15-37); Bilirubin Total 0.2 mg/dL (0.2-1.0); C Reactive Protein 23.12 mg/dL (<=0.50); Calcium 9.2 mg/dL (8.5-10.1); Carbon Dioxide 17.3 mmol/L (21.0-32.0); Chloride 96 mmol/L (98-107); Estimated GFR (African America 15 (>=60 mL/min/1.73m^2); Estimated GFR (Non-African Ame 12 (>=60 mL/min/1.73m^2); Globulin 5.5 g/dL; Glucose 302 mg/dL (74-106); Potassium 4.9 mmol/L (3.5-5.1); Sodium 129 mmol/L (136-145); Total Protein 7.5 g/dL (6.4-8.2)
[2024-10-23 23:14] LABS: Lactate/Lactic Acid 1.2 mmol/L (0.4-2.0)
[2024-10-23] MEDS: PIPERACILLIN SODIUM/TAZOBACTAM 4.5 GM in 0.9 % SODIUM CHLORIDE 50 ML IV (23:19)
[2024-10-23 23:21] VITALS: BP 174/82; PULSE 106; O2SAT 99
[2024-10-23] MEDS: VANCOMYCIN HCL 1,000 MG in 0.9 % SODIUM CHLORIDE 250 ML 250 MG IV (23:53)
[2024-10-23] MEDS: 0.9 % SODIUM CHLORIDE 1,000 ML 500 ML IV (23:53)
[2024-10-24] VITALS (10 sets, daily range): BP systolic 150–174; BP diastolic 75–81; PULSE 79–101; TEMP 36.3–37.2; O2SAT 92–98; BMI 32.1
--- OUTSIDE RECORDS SUMMARY | 2024-10-24 00:24 | XMS_ITS | CCD ---
Author Organization [facility] Care Team Providers Care Manager Star Name Role Phone Jose Juarez Primary Care Provider [phone] Eugene Morel Admit Provider Eugene Morel Attending Provider Gordon Ewing Attending Provider Patria Cheung Attending Provider [phone] SAVANNAH REYNOLDS Admitting Unavailable SAVANNAH REYNOLDS Attending Unavailable JOSE JUAREZ Primary Care Unavailable JOSE JUAREZ Referring Unavailable [place] Procedure Practitioner Unavailab TRISHA Ozuna Surgeon Unavailable NIMA WYNNE Surgeon Unavailable [place] Procedure Practitioner Unavailab Jose Andres Primary Care Provider [phone] Eugene Morel Admit Provider [phone] Gordon Ewing Attending Provider Patria Cheung Attending Provider Latrice Lehman Attending Provider [phone] PROVIDER, UNKNOWN Attending Unavailable PROVIDER, UNKNOWN Admitting Unavailable Kike Pollack Unavailable CHINO ELLIOTT Attending Unavailable LARRY, DR RIOS Primary Care Unavailable CHINO ELLIOTT Admitting Unavailable [...] VALONE, DR RIOS Admitting Unavailable VALONE, DR IROS Attending Unavailable VALONE, DR RIOS Primary Care [...] source) exenatide Drug Allergy 07-14-19 21 [facility] Repository NSAIDs (5 sources) celecoxib; Translations: [Celebrex] Drug Allergy 07-14-19 21 Difficulty Breathing [facility] Repository Phenolphthalein (1 source) Phenolphthalein Drug Allergy 07-14-19 21 [facility] Repository (6 sources) celecoxib; Translations: [celecoxib] Drug Allergy 07-21-19 17 Difficulty Breathing, bad for kidney, Difficulty Breathing, bad for kidney [facility] Repository (5 sources) Aspirin; Translations: [ASPIRIN] Drug Allergy 07-21-19 bad for kidney [facility] Repository (2 sources) Amoxicillin Drug Allergy 07-09-19 The [facility] Repository (1 source) celecoxib Drug Allergy 07-09-19 20 [facility] Repository (1 source) exenatide Drug Allergy 07-09-19 20 [facility] Repository (1 source) Phenolphthalein Drug Allergy 07-09-19 [facility] Repository (3 sources) exenatide; Translations: [EXENATIDE] Drug Allergy 07-21-19 17 [facility] Repository (3 sources) HYLAN G-F 20; Translations: [HYLAN G-F 20] Propensity to adverse reactions to drug (disorder) 07-21-19 [facility] Repository (1 source) exenatide Drug Allergy 09-14-19 [facility] (1 source) OXcarbazepine Drug Allergy 09-14-19 23 [facility] Medications Current Medications Medication Drug Class(es) Dates [...] Start: 08-18-2020 take 1 capsule by mo [facility] once daily B Complex With C 20-Folic [...] lower limb ischemia ; Translations: [Atherosclerosis of [place] arteries of extremities with gangrene, left leg] [...] 06-27-2022 Episodic Other aftercare (7 sources) 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 Scanned copy available in EMR. PERFORMED BY: [address] [address] PATHOLOGIST PELLETIZER TENDER NIMA MCCLELLAN M.D. Performed By: #### P ATH TO [facility] #### [address] [address] [facility] BLOOD UREA NITROGENon 2023 Urea nitrogen [Mass/Vol] 40 mg/dL High 5-27 [facility] Comment on above: Performed By: #### E LEC, 3094-0, LINER MACHINE OPERATOR HELPER, 71841-2 #### [facility] ([id number]) [address] [place] [address] 59528 #### 77451-2, HA1C #### [facility] ([id number]) [address] [place] [address], [address] [place] [address] CBC AND AUTO DIFFon 02-17-20 ABSOLUTE BASOPHIL 0.0 X10E9/L Normal 0.0-0.2 [facility] Comment on above: Performed By: #### U A #### [facility] ([id number]) [address] [place] [address] ABSOLUTE NEUTROPHIL 5.2 X10E9/L Normal 1.5-6.6 [facility] Comment on above: Performed By: #### U A #### [facility] ([id number]) [address] [place] [address] 22997 Basophils/100 WBC (Bld) 0.6 % Normal [facility] Comment on above: Performed By: #### U A #### [facility] ([id number]) [address] [place] [address] 60006 Eosinophils (Bld) [#/Vol] 0.6 10*3/uL High 0.0-0.4 [facility] Comment on above: Performed By: #### U A #### [facility] ([id number]) [address] [place] [address] 34521 Eosinophils/100 WBC (Bld) 6.5 % Normal [facility] Comment on above: Performed By: #### U A #### [facility] ([id number]) [address] [place] [address], [place] [address] Erythrocyte distribution width (RBC) [Ratio] 14.2 % Normal 11.5-15.0 [facility] Comment on above: Performed By: #### U A #### [facility] ([id number]) [address] [place] [address]279 Hematocrit (Bld) [Volume fraction] 37.5 % Low 39-49 [facility] Comment on above: Performed By: #### U A #### [facility] ([id number]) [address] [place] [address] 94917 Hemoglobin (Bld) [Mass/Vol] 12.3 g/dL Low 13.0-17.0 [facility] Comment on above: Performed By: #### U A #### [facility] ([id number]) [address] [place] [address] 99687 Lymphocytes (Bld) [#/Vol] 1.9 10*3/uL Normal 1.0-3.5 [facility] Comment on above: Performed By: #### U A #### [facility] ([id number]) [address] [place] [address] 06650 Lymphocytes/100 WBC (Bld) 21.4 % Normal [facility] Comment on above: Performed By: #### U A #### [facility] ([id number]) [address] [place] [address] 79511 MCH (RBC) [Entitic mass] 29.3 pg Normal 27-34 [facility] Comment on above: Performed By: #### U A #### [facility] ([id number]) [address] [place] [address] 66949 MCHC (RBC) [Mass/Vol] 32.7 g/dL Normal 32-36 [facility] Comment on above: Performed By: #### U A #### [facility] ([id number]) [address] [place] [address] 76744 MCV (RBC) [Entitic vol] 90 fL Normal 80-100 [facility] Comment on above: Performed By: #### U A #### [facility] ([id number]) [address] [place] [address] 21418 Monocytes (Bld) [#/Vol] 1.1 10*3/uL High 0-0.9 [facility] Comment on above: Performed By: #### U A #### [facility] ([id number]) [address] [place] [address] 74988 Monocytes/100 WBC (Bld) 12.8 % Normal [facility] Comment on above: Performed By: #### U A #### [facility] ([id number]) [address] [place] [address] 16005 Neutrophils/100 WBC (Bld) 58.7 % Normal [facility] Comment on above: Performed By: #### U A #### [facility] ([id number]) [address] [place] [address] 33682 Platelet mean volume (Bld) [Entitic vol] 6.6 fL Low 7-12 [facility] Comment on above: Performed By: #### U A #### [facility] ([id number]) [address] [place] [address] 98231 Platelets (Bld) [#/Vol] 281 10*3/uL Normal 150-450 [facility] Comment on above: Performed By: #### U A #### [facility] ([id number]) [address] [place] [address] 18082 RBC COUNT 4.19 X10E12/L Normal 4.10-5.70 [facility] Comment on above: Performed By: #### U A #### [facility] ([id number]) [address] [place] [address] 42502 WBC (Bld) [#/Vol] 8.8 10*3/uL Normal 4.0-11.0 [facility] Comment on above: Performed By: #### U A #### [facility] ([id number]) [address] [place] [address] 31049 CREATININEon 02-17-2024 Creatinine [Mass/Vol] 3.74 mg/dL High 0.70-1.20 [facility] Comment on above: Result Comment: METH OD TRACEABLE TO IDMS STANDARD Performed By: #### E LEC, 3094-0, LINER MACHINE OPERATOR HELPER, 69040-0 #### [facility] ([id number]) [address] [place] [address] 87538 #### 94524-7, HA1C #### [facility] ([id number]) [address], [address] [place] [address] GFR/1.73 sq M.predicted among non-blacks MDRD (S/P/Bld) [Vol rate/Area] 17 mL/min/{1.73_m2} Low >59 [facility] Comment on above: Result Comment: Reported eGFR is based on the CKD-EPI 2020 equation that does not use a race coefficient. Performed By: #### E LEC, 3094-0, LINER MACHINE OPERATOR HELPER, 73022-6 #### [facility] ([id number]) [address] [place] [address] 22004 #### 05029-0, HA1C #### [facility] ([id number]) [address], [address] [place] [address] ELECTROLYTESon 02-17-2024 Anion gap [Moles/Vol] 8 mmol/L Normal 5-15 [facility] Comment on above: Performed By: #### E LEC, 3094-0, LINER MACHINE OPERATOR HELPER, 05841-9 #### [facility] ([id number]) [address] [place] [address] 41981 #### 23552-3, HA1C #### [facility] ([id number]) [address] [place] [address], [address] [place] [address] Chloride [Moles/Vol] 106 mmol/L Normal 98-109 [facility] Comment on above: Performed By: #### E LEC, 3094-0, LINER MACHINE OPERATOR HELPER, 97947-3 #### [facility] ([id number]) [address] [place] [address] 66494 #### 87783-7, HA1C #### [facility] ([id number]) [address] [place] [address], [address] [place] [address] CO2 [Moles/Vol] 21 mmol/L Low 22-32 [facility] Comment on above: Performed By: #### E LEC, 3094-0, LINER MACHINE OPERATOR HELPER, 04249-7 #### [facility] ([id number]) [address] [place] [address] 78066 #### 52762-5, HA1C #### [facility] ([id number]) [address] [place] [address], [address] [place] [address] Potassium [Moles/Vol] 5.2 mmol/L High 3.5-5.0 [facility] Comment on above: Performed By: #### E LEC, 3094-0, LINER MACHINE OPERATOR HELPER, 52264-4 #### [facility] ([id number]) [address] [place] [address] 04999 #### 89719-4, HA1C #### [facility] ([id number]) [address] [place] [address], [address] [place] [address] Sodium [Moles/Vol] 135 mmol/L Normal 134-146 [facility] Comment on above: Performed By: #### E LEC, 3094-0, LINER MACHINE OPERATOR HELPER, 30664-0 #### [facility] ([id number]) [address] [place] [address] 14663 #### 42982-1, HA1C #### [facility] ([id number]) [address], [address] [place] [address] BLOOD UREA NITROGENon 2023 Urea nitrogen [Mass/Vol] 50 mg/dL High 5-27 [facility] Comment on above: Performed By: #### U A #### [facility] ([id number]) [address] [place] [address] 41164 CALCIUMon 01-20-2024 Calcium [Mass/Vol] 8.7 mg/dL Normal 8.5-10.5 [facility] Comment on above: Performed By: #### B MP, CBCA, 1987-08, 18546-9 #### [facility] ([id number]) [address] [place] [address] 57102 #### 09924-4 #### [facility] ([id number]) [address] [facility], [address] [place] [address] CBC AND AUTO DIFFon 01-20-20 24 ABSOLUTE BASOPHIL 0.1 X10E9/L Normal 0.0-0.2 [facility] Comment on above: Performed By: #### B MP, CBCA, 1987-08, 20318-1 #### [facility] ([id number]) [address] [place] [address] 56873 #### 38060-5 #### [facility] ([id number]) [address] [facility], [address] [place] [address] ABSOLUTE NEUTROPHIL 6.0 X10E9/L Normal 1.5-6.6 [facility] Comment on above: Performed By: #### B MP, CBCA, 1987-08, 43629-2 #### [facility] ([id number]) [address] [place] [address] 36471 #### 47500-4 #### [facility] ([id number]) [address], [address] [place] [address] Basophils/100 WBC (Bld) 0.6 % Normal [facility] Comment on above: Performed By: #### B MP, CBCA, 1987-08, 03776-1 #### [facility] ([id number]) [address] [place] [address] 38763 #### 85223-5 #### [facility] ([id number]) [address] [facility], [address] [place] [address] Eosinophils (Bld) [#/Vol] 0.3 10*3/uL Normal 0.0-0.4 [facility] Comment on above: Performed By: #### Laura RONDON, CBCA, 1987-08, #### [facility] ([id number]) [address] [place] [address] 21604 #### 54154-9 #### [facility] ([id number]) [address] [facility], [address] [place] [address] Eosinophils/100 WBC (Bld) 3.1 % Normal [facility] Comment on above: Performed By: #### Laura RONDON, CBCA, 1987-08, #### [facility] ([id number]) [address] [place] [address] 48740 #### 10082-4 #### [facility] ([id number]) [address], [address] [place] [address] Erythrocyte distribution width (RBC) [Ratio] 13.5 % Normal 11.5-15.0 [facility] Comment on above: Performed By: #### Laura MP, CBCA, 1987-08, #### [facility] ([id number]) [address] [place] [address] 62782 #### 82998-5 #### [facility] ([id number]) [address], [address] [place] [address] Hematocrit (Bld) [Volume fraction] 36.1 % Low 39-49 [facility] Comment on above: Performed By: #### Laura RONDON, CBCA, 1987-08, 38082-5 #### [facility] ([id number]) [address] [place] [address] 52877 #### 78882-3 #### [facility] ([id number]) [address], [address] [place] [address] Hemoglobin (Bld) [Mass/Vol] 11.8 g/dL Low 13.0-17.0 [facility] Comment on above: Performed By: #### B ALCON, CBCA, 1987-08, 43795-1 #### [facility] ([id number]) [address] [place] [address] 62709 #### 52849-1 #### [facility] ([id number]) [address], [address] [place] [address] Lymphocytes (Bld) [#/Vol] 2.0 10*3/uL Normal 1.0-3.5 [facility] Comment on above: Performed By: #### B ALCON, CBCA, 1987-08, 59947-6 #### [facility] ([id number]) [address] [place] [address] 23686 #### 99675-9 #### [facility] ([id number]) [address], [address] [place] [address] Lymphocytes/100 WBC (Bld) 20.7 % Normal [facility] Comment on above: Performed By: #### B ALCON, CBCA, 1987-08, #### [facility] ([id number]) [address] [place] [address] 92507 #### 26251-7 #### [facility] ([id number]) [address] [place] [address], [address] [place] [address] MCH (RBC) [Entitic mass] 29.1 pg Normal 27-34 [facility] Comment on above: Performed By: #### B ALCON CBCA, 1987-08, 83557-1 #### [facility] ([id number]) [address] [place] [address] 88804 #### 38093-7 #### [facility] ([id number]) [address] [place] [address], [address] [place] [address] MCHC (RBC) [Mass/Vol] 32.8 g/dL Normal 32-36 [facility] Comment on above: Performed By: #### Laura RONDON CBCA, 1987-08, #### [facility] ([id number]) [address] [place] [address] 03823 #### 64694-4 #### [facility] ([id number]) [address] [place] [address], [address] [place] [address] MCV (RBC) [Entitic vol] 89 fL Normal 80-100 [facility] Comment on above: Performed By: #### Laura RONDON CBCA, 1987-08, #### [facility] ([id number]) [address] [place] [address] 17667 #### 05554-6 #### [facility] ([id number]) [address] [place] [address], [address] [place] [address] Monocytes (Bld) [#/Vol] 1.2 10*3/uL High 0-0.9 [facility] Comment on above: Performed By: #### Laura RONDON CBCA, 1987-08, 22101-6 #### [facility] ([id number]) [address] [place] [address] 35367 #### 95575-6 #### [facility] ([id number]) [address] [facility], [address] [place] [address] Monocytes/100 WBC (Bld) 12.3 % Normal [facility] Comment on above: Performed By: #### Laura MP, CBCA, 1987-08, 04830-5 #### [facility] ([id number]) [address] [place] [address] 27889 #### 65603-2 #### [facility] ([id number]) [address] [place] [address], [address] [place] [address] Neutrophils/100 WBC (Bld) 63.3 % Normal [facility] Comment on above: Performed By: #### B ALCON, CBCA, 1987-08, 78807-9 #### [facility] ([id number]) [address] [place] [address] 97905 #### 35103-6 #### [facility] ([id number]) [address] [place] [address], [address] [place] [address] Platelet mean volume (Bld) [Entitic vol] 7.7 fL Normal 7-12 [facility] Comment on above: Performed By: #### Laura MP, CBCA, 1987-08, 09696-2 #### [facility] ([id number]) [address] [place] [address] 07388 #### 72387-1 #### [facility] ([id number]) [address] [facility], [address] [place] [address] Platelets (Bld) [#/Vol] 264 10*3/uL Normal 150-450 [facility] Comment on above: Performed By: #### B MP, CBCA, 1987-08, 58475-7 #### [facility] ([id number]) [address] [place] [address] 15098 #### 81321-0 #### [facility] ([id number]) [address] [facility], [address] [place] [address] RBC COUNT 4.07 X10E12/L Low 4.10-5.70 [facility] Comment on above: Performed By: #### B ALCON CBCA, 1987-08, 71267-1 #### [facility] ([id number]) [address] [place] [address] 28222 #### 63385-1 #### [facility] ([id number]) [address] [facility], [address] [address] WBC (Bld) [#/Vol] 9.4 10*3/uL Normal 4.0-11.0 [facility] Comment on above: Performed By: #### B ALCON, CBCA, 1987-08, 48831-6 #### [facility] ([id number]) [address] [place] [address] 17364 #### 38937-7 #### [facility] ([id number]) [address] [facility], [address] [place] [address] CREATININEon 01-20-2024 Creatinine [Mass/Vol] 3.14 mg/dL High 0.70-1.20 [facility] Comment on above: Result Comment: METH OD TRACEABLE TO IDMS STANDARD Performed By: #### U A #### [facility] ([id number]) [address] [place] [address] 10876 GFR/1.73 sq M.predicted among non-blacks MDRD (S/P/Bld) [Vol rate/Area] 21 mL/min/{1.73_m2} Low >59 [facility] Comment on above: Result Comment: Reported eGFR is based on the CKD-EPI 2020 equation that does not use a race coefficient. Performed By: #### U A #### [facility] ([id number]) [address] [place] [address] [place] [address] ELECTROLYTESon 01-20-2024 Anion gap [Moles/Vol] 8 mmol/L Normal 5-15 [facility] Comment on above: Performed By: #### U A #### [facility] ([id number]) [address] [place] [address] 65292 Chloride [Moles/Vol] 104 mmol/L Normal 98-109 [facility] Comment on above: Performed By: #### U A #### [facility] ([id number]) [address] [place] [address] 71880 CO2 [Moles/Vol] 19 mmol/L Low 22-32 [facility] Comment on above: Performed By: #### U A #### [facility] ([id number]) [address] [place] [address] 33206 Potassium [Moles/Vol] 4.9 mmol/L Normal 3.5-5.0 [facility] Comment on above: Performed By: #### U A #### [facility] ([id number]) [address] [place] [address] 36988 Sodium [Moles/Vol] 131 mmol/L Low 134-146 [facility] Comment on above: Performed By: #### U A #### [facility] ([id number]) [address] [place] [address] 62485 ESR Photometric method (Bld) [Velocity]on 01-20-2024 ESR, ERYTHROCYTE SEDIMENTATION RATE 98 mm/h High 0-20 [facility] Comment on above: Performed By: #### U A #### [facility] ([id number]) [address] [place] [address] [place] [address] HGB A1C (GLYCO-HGB)on 2023 Glucose [Mass/Vol] 289 mg/dL Normal [facility] Comment on above: Performed By: #### U A #### [facility] ([id number]) [address] [place] [address] 01845 HbA1c (Bld) [Mass fraction] 11.7 % High 4.4-5.6 [facility] Comment on above: Result Comment: NOTE ADA Guidelines Result HgbA1c Normal : less than 5.7 % Prediabetes : 5.7 % to 6.4 % Diabetes : > 6.4 % Use with caution in patients with abnormal hemoglobin variants as the half-life of red blood cells and in vivo glycation rates are affected. Performed By: #### U A #### [facility] ([id number]) [address] [place] [address] 74055 LIVER PANELon 01-20-2024 Albumin [Mass/Vol] 2.9 g/dL Low 3.2-5.3 [facility] Comment on above: Performed By: #### U A #### [facility] ([id number]) [address] [place] [address] 69990 ALP [Catalytic activity/Vol] 79 U/L Normal 39-130 [facility] Comment on above: Performed By: #### U A #### [facility] ([id number]) [address] [place] [address] 19982 ALT [Catalytic activity/Vol] 26 U/L Normal 0-40 [facility] Comment on above: Performed By: #### U A #### [facility] ([id number]) [address] [place] [address] 58991 AST [Catalytic activity/Vol] 19 U/L Normal 0-41 [facility] Comment on above: Performed By: #### U A #### [facility] ([id number]) [address] [place] [address] 89336 Bilirubin [Mass/Vol] 0.5 mg/dL Normal 0.3-1.2 [facility] Comment on above: Performed By: #### U A #### [facility] ([id number]) [address] [place] [address] 74510 Bilirubin.indirect [Mass/Vol] mg/dL Normal 0.0-0.4 [facility] Comment on above: Performed By: #### U A #### [facility] ([id number]) [address] [place] [address] 33453 Protein [Mass/Vol] 6.9 g/dL Normal 6.0-8.0 [facility] Comment on above: Performed By: #### U A #### [facility] ([id number]) [address] [place] [address] 50945 Lipid 1996 panelon 4 Cholesterol [Mass/Vol] 136 mg/dL Low 150-200 [facility] Comment on above: Performed By: #### U A #### [facility] ([id number]) [address] [place] [address] 18839 Cholesterol in HDL [Mass/Vol] 40 mg/dL Normal >39 [facility] Comment on above: Result Comment: HDL <40 mg/dL - High Risk HDL > or = 40mg/dL- Desirable HDL >60 mg/dL - Negative Risk Performed By: #### U A #### [facility] ([id number]) [address] [place] [address] 24722 Cholesterol in LDL [Mass/Vol] 62 mg/dL Normal <130 [facility] Comment on above: Result Comment: LDL <100 mg/dL - Desirable LDL >160 mg/dL - High Risk Performed By: #### U A #### [facility] ([id number]) [address] [place] [address], [place] [address] Cholesterol in VLDL [Mass/Vol] 34 mg/dL High 0-30 [facility] Comment on above: Performed By: #### U A #### [facility] ([id number]) [address] [place] [address], [place] [address] CHOLESTEROL:HDL 3.4 Normal 1.0-5.0 [facility] Comment on above: Performed By: #### U A #### [facility] ([id number]) [address] [place] [address] [id number] Triglyceride [Mass/Vol] 172 mg/dL High 27-150 [facility] Comment on above: Performed By: #### U A #### [facility] ([id number]) [address] [place] [address], [place] [address] Natriuretic peptide B [Mass/ Vol]on 01-20-2024 Natriuretic peptide B (Bld) [Mass/Vol] 88 pg/mL Normal <100.0 [facility] Comment on above: Performed By: #### U A #### [facility] ([id number]) [address] [place] [address], [place] [address] Vitamin D+Metabolites [Mass/ Vol]on 01-20-2024 VITAMIN D 25 HYD TOT 15.1 ng/mL Low 30-100 [facility] Comment on above: Result Comment: Vitamin D status 25 [place] Vitamin D Deficiency <20 ng/mL Insufficiency 20-29 ng/mL Sufficiency 30-100 ng/mL Toxicity >100 ng/mL NOTE: A pediatric reference range has not been established by the [facility] teacher of this kit. The [place] [employer] recommends a Vitamin D level of = or >20ng/mL in infants and children. Performed By: #### U A #### [facility] ([id number]) [address] [place] [address] 20227 BLOOD UREA NITROGENon 2023 Urea nitrogen [Mass/Vol] 50 mg/dL High 5-27 [facility] Comment on above: Performed By: #### B MP, CBCA, 1987-08, 11648-1 #### [facility] ([id number]) [address] [place] [address] #### 99832-3 #### [facility] ([id number]) [address], [address] [place] [address] CBC AND AUTO DIFFon 12-16-19 24 ABSOLUTE BASOPHIL 0.0 X10E9/L Normal 0.0-0.2 [facility] Comment on above: Performed By: #### B MP, CBCA, 1987-08, 29739-1 #### [facility] ([id number]) [address] [place] [address] 57510 #### 56858-4 #### [facility] ([id number]) [address], [address] [place] [address] ABSOLUTE NEUTROPHIL 5.7 X10E9/L Normal 1.5-6.6 [facility] Comment on above: Performed By: #### B MP, CBCA, 1987-08, 31479-7 #### [facility] ([id number]) [address] [place] [address] 46756 #### 98088-7 #### [facility] ([id number]) [address], [address] [place] [address] Basophils/100 WBC (Bld) 0.4 % Normal [facility] Comment on above: Performed By: #### B MP, CBCA, 1987-08, 30720-6 #### [facility] ([id number]) [address] [place] [address] 69667 #### 62273-8 #### [facility] ([id number]) [address], [address] [place] [address] Eosinophils (Bld) [#/Vol] 0.4 10*3/uL Normal 0.0-0.4 [facility] Comment on above: Performed By: #### B MP, CBCA, 1987-08, 58968-7 #### [facility] ([id number]) [address] [place] [address] 90934 #### 59138-4 #### [facility] ([id number]) [address], [address] [place] [address] Eosinophils/100 WBC (Bld) 4.8 % Normal [facility] Comment on above: Performed By: #### B MP, CBCA, 1987-08, 24619-1 #### [facility] ([id number]) [address] [place] [address] 55697 #### 02809-1 #### [facility] ([id number]) [address], [address] [place] [address] Erythrocyte distribution width (RBC) [Ratio] 14.7 % Normal 11.5-15.0 [facility] Comment on above: Performed By: #### B MP, CBCA, 1987-08, 83317-9 #### [facility] ([id number]) [address] [place] [address] 36792 #### 22277-0 #### [facility] ([id number]) [address], [address] [place] [address] Hematocrit (Bld) [Volume fraction] 39.0 % Normal 39-49 [facility] Comment on above: Performed By: #### B ALCON, CBCA, 1987-08, 36149-8 #### [facility] ([id number]) [address] [place] [address] 64186 #### 95076-1 #### [facility] ([id number]) [address], [address] [place] [address] Hemoglobin (Bld) [Mass/Vol] 13.3 g/dL Normal 13.0-17.0 [facility] Comment on above: Performed By: #### B ALCON, CBCA, 1987-08, 24896-0 #### [facility] ([id number]) [address] [place] [address] 39013 #### 51513-4 #### [facility] ([id number]) [address], [address] [place] [address] Lymphocytes (Bld) [#/Vol] 1.7 10*3/uL Normal 1.0-3.5 [facility] Comment on above: Performed By: #### Laura RONDON, CBCA, 1987-08, #### [facility] ([id number]) [address] [place] [address] 33164 #### 82002-9 #### [facility] ([id number]) [address], [address] [place] [address] Lymphocytes/100 WBC (Bld) 19.3 % Normal [facility] Comment on above: Performed By: #### Laura RONDON, CBCA, 1987-08, 36810-8 #### [facility] ([id number]) [address] [place] [address] 24283 #### 45472-2 #### [facility] ([id number]) [address], [address] [place] [address] MCH (RBC) [Entitic mass] 29.8 pg Normal 27-34 [facility] Comment on above: Performed By: #### B ALCON CBCA, 1987-08, 66239-7 #### [facility] ([id number]) [address] [place] [address] 63569 #### 91892-3 #### [facility] ([id number]) [address] [facility], [address] [place] [address] MCHC (RBC) [Mass/Vol] 34.0 g/dL Normal 32-36 [facility] Comment on above: Performed By: #### B ALCON CBCA, 1987-08, 34405-4 #### [facility] ([id number]) [address] [place] [address] 02236 #### 64982-0 #### [facility] ([id number]) [address] [facility], [address] [place] [address] MCV (RBC) [Entitic vol] 88 fL Normal 80-100 [facility] Comment on above: Performed By: #### Laura RONDON CBCA, 1987-08, 85875-8 #### [facility] ([id number]) [address] [place] [address] 5100[address] #### 01977-7 #### [facility] ([id number]) [address] [facility], [address] [place] [address] Monocytes (Bld) [#/Vol] 0.8 10*3/uL Normal 0-0.9 [facility] Comment on above: Performed By: #### Laura RONDON CBCA, 1987-08, 08376-6 #### [facility] ([id number]) [address] [place] [address] 75544 #### 17255-9 #### [facility] ([id number]) [address] [facility], [address] [place] [address] Monocytes/100 WBC (Bld) 8.8 % Normal [facility] Comment on above: Performed By: #### B ALCON, CBCA, 1987-08, 44454-3 #### [facility] ([id number]) [address] [place] [address] 85448 #### 11964-8 #### [facility] ([id number]) [address] [facility], [address] [place] [address] Neutrophils/100 WBC (Bld) 66.7 % Normal [facility] Comment on above: Performed By: #### B ALCON, CBCA, 1987-08, 38457-3 #### [facility] ([id number]) [address] [place] [address] 66727 #### 88743-8 #### [facility] ([id number]) [address] [facility], [address] [place] [address] Platelet mean volume (Bld) [Entitic vol] 7.7 fL Normal 7-12 [facility] Comment on above: Performed By: #### Laura RONDON, CBCA, 1987-08, 81702-0 #### [facility] ([id number]) [address] [place] [address] 53645 #### 48051-7 #### [facility] ([id number]) [address] [facility], [address] [place] [address] Platelets (Bld) [#/Vol] 286 10*3/uL Normal 150-450 [facility] Comment on above: Performed By: #### B ALCON, CBCA, 1987-08, 37265-8 #### [facility] ([id number]) [address] [place] [address] 85053 #### 55634-8 #### [facility] ([id number]) [address] [facility], [address] [place] [address] RBC COUNT 4.46 X10E12/L Normal 4.10-5.70 [facility] Comment on above: Performed By: #### B JAMES RONDON, 1987-08, #### [facility] ([id number]) [address] [place] [address] 54074 #### 43307-6 #### [facility] ([id number]) [address] [address] WBC (Bld) [#/Vol] 8.6 10*3/uL Normal 4.0-11.0 [facility] Comment on above: Performed By: #### B JAMES RONDON, 1987-08, #### [facility] ([id number]) [address] [place] [address] 62185 #### 59081-7 #### [facility] ([id number]) [address] [facility], [address] [address] CREATININEon 12-16-2023 Creatinine [Mass/Vol] 3.32 mg/dL High 0.70-1.20 [facility] Comment on above: Result Comment: METH OD TRACEABLE TO IDMS STANDARD Performed By: #### B JAMES RONDON, 1987-08, #### [facility] ([id number]) [address] [place] [address] 51812 #### 57965-3 #### [facility] ([id number]) [address] [address] GFR/1.73 sq M.predicted among non-blacks MDRD (S/P/Bld) [Vol rate/Area] 20 mL/min/{1.73_m2} Low >59 [facility] Comment on above: Result Comment: Reported eGFR is based on the CKD-EPI 2020 equation that does not use a race coefficient. Performed By: #### B JAMES RONDON, 1987-08, #### [facility] ([id number]) [address] [place] [address] 93485 #### 35284-0 #### [facility] ([id number]) [address] [place] [address] ELECTROLYTESon 12-16-2023 Anion gap [Moles/Vol] 8 mmol/L Normal 5-15 [facility] Comment on above: Performed By: #### B ALCON, CBCA, 1987-08, 57386-0 #### [facility] ([id number]) [address] [place] [address] 37192 #### 20819-2 #### [facility] ([id number]) [address], [address] [place] [address] Chloride [Moles/Vol] 103 mmol/L Normal 98-109 [facility] Comment on above: Performed By: #### Laura RONDON CBCA, 1987-08, 07043-9 #### [facility] ([id number]) [address] [place] [address] 00462 #### 54977-1 #### [facility] ([id number]) [address], [address] [place] [address] CO2 [Moles/Vol] 18 mmol/L Low 22-32 [facility] Comment on above: Performed By: #### Laura RONDON CBCA, 1987-08, 96798-0 #### [facility] ([id number]) [address] [place] [address] 57442 #### 89897-2 #### [facility] ([id number]) [address] [place] [address] Potassium [Moles/Vol] 4.5 mmol/L Normal 3.5-5.0 [facility] Comment on above: Performed By: #### B ALCON CBCA, 1987-08, 09315-7 #### [facility] ([id number]) [address] [facility], [place] [address] #### 29422-4 #### [facility] ([id number]) [address], [address] [place] [address] Sodium [Moles/Vol] 129 mmol/L Low 134-146 [facility] Comment on above: Performed By: #### B MP, CBCA, 1987-08, 44109-5 #### [facility] ([id number]) [address] [facility], [place] [address] #### 03294-3 #### [facility] ([id number]) [address], [address] [place] [address] BLOOD UREA NITROGENon 2023 Urea nitrogen [Mass/Vol] 41 mg/dL High 5-27 [facility] Comment on above: Performed By: #### C BCA, 3094-0, LINER MACHINE OPERATOR HELPER, ELEC #### [facility] ([id number]) [address], [address] [place] [address] CBC AND AUTO DIFFon 11-19-19 24 ABSOLUTE BASOPHIL 0.2 X10E9/L Normal 0.0-0.2 [facility] Comment on above: Performed By: #### C BCA, 3094-0, LINER MACHINE OPERATOR HELPER, ELEC #### [facility] ([id number]) [address], [address] [place] [address] Basophils/100 WBC (Bld) 1.9 % Normal [facility] Comment on above: Performed By: #### C BCA, 3094-0, LINER MACHINE OPERATOR HELPER, ELEC #### [facility] ([id number]) [address], [address] [place] [address] KATHERINE 1+ Abnormal NONE [facility] Comment on above: Performed By: #### C BCA, 3094-0, LINER MACHINE OPERATOR HELPER, ELEC #### [facility] ([id number]) [address] [address] [place] [address] Eosinophils (Bld) [#/Vol] 0.4 10*3/uL Normal 0.0-0.4 [facility] Comment on above: Performed By: #### C BCA, 3094-0, LINER MACHINE OPERATOR HELPER, ELEC #### [facility] ([id number]) [address] [address] Eosinophils/100 WBC (Bld) 3.8 % Normal [facility] Comment on above: Performed By: #### C BCA, 3094-0, LINER MACHINE OPERATOR HELPER, ELEC #### [facility] ([id number]) [address] [address] Erythrocyte distribution width (RBC) [Ratio] 14.4 % Normal 11.5-15.0 [facility] Comment on above: Performed By: #### C BCA, 3094-0, LINER MACHINE OPERATOR HELPER, ELEC #### [facility] ([id number]) [address] [address] Hematocrit (Bld) [Volume fraction] 40.3 % Normal 39-49 [facility] Comment on above: Performed By: #### C BCA, 3094-0, LINER MACHINE OPERATOR HELPER, ELEC #### [facility] ([id number]) [address] [address] Hemoglobin (Bld) [Mass/Vol] 13.4 g/dL Normal 13.0-17.0 [facility] Comment on above: Performed By: #### C BCA, 3094-0, LINER MACHINE OPERATOR HELPER, ELEC #### [facility] ([id number]) [address] [address] Lymphocytes (Bld) [#/Vol] 2.0 10*3/uL Normal 1.0-3.5 [facility] Comment on above: Performed By: #### C BCA, 3094-0, LINER MACHINE OPERATOR HELPER, ELEC #### [facility] ([id number]) [address], [address] [place] [address] Lymphocytes/100 WBC (Bld) 21.7 % Normal [facility] Comment on above: Performed By: #### C BCA, 3094-0, LINER MACHINE OPERATOR HELPER, ELEC #### [facility] ([id number]) [address], [facility] [address] [place] [address] MCH (RBC) [Entitic mass] 29.6 pg Normal 27-34 [facility] Comment on above: Performed By: #### C BCA, 3094-0, LINER MACHINE OPERATOR HELPER, ELEC #### [facility] ([id number]) [address], [facility] [address] [place] [address] MCHC (RBC) [Mass/Vol] 33.4 g/dL Normal 32-36 [facility] Comment on above: Performed By: #### C BCA, 3094-0, LINER MACHINE OPERATOR HELPER, ELEC #### [facility] ([id number]) [address], [facility] [address] [place] [address] MCV (RBC) [Entitic vol] 89 fL Normal 80-100 [facility] Comment on above: Performed By: #### C BCA, 3094-0, LINER MACHINE OPERATOR HELPER, ELEC #### [facility] ([id number]) [address], [address] [place] [address] Monocytes (Bld) [#/Vol] 0.6 10*3/uL Normal 0-0.9 [facility] Comment on above: Performed By: #### C BCA, 3094-0, LINER MACHINE OPERATOR HELPER, ELEC #### [facility] ([id number]) [address], [facility] [address] [place] [address] Monocytes/100 WBC (Bld) 6.6 % Normal [facility] Comment on above: Performed By: #### C BCA, 3094-0, LINER MACHINE OPERATOR HELPER, ELEC #### [facility] ([id number]) [address] [place] [address] Neutrophils (Bld) [#/Vol] 6.1 10*3/uL Normal 1.5-6.6 [facility] Comment on above: Performed By: #### C IRENE, 3094-0, LINER MACHINE OPERATOR HELPER, ELEC #### [facility] ([id number]) [address], [facility] [address] [place] [address] Platelet mean volume (Bld) [Entitic vol] 8.0 fL Normal 7-12 [facility] Comment on above: Performed By: #### C IRENE, 3094-0, LINER MACHINE OPERATOR HELPER, ELEC #### [facility] ([id number]) [address], [facility] [address] [place] [address] Platelets (Bld) [#/Vol] 253 10*3/uL Normal 150-450 [facility] Comment on above: Performed By: #### Gabrielle BONILLA, 3094-0, LINER MACHINE OPERATOR HELPER, ELEC #### [facility] ([id number]) [address], [facility] [address] [place] [address] RBC COUNT 4.54 X10E12/L Normal 4.10-5.70 [facility] Comment on above: Performed By: #### Gabrielle BONILLA, 3094-0, LINER MACHINE OPERATOR HELPER, ELEC #### [facility] ([id number]) [address], [facility] [address] [place] [address] SEG NEUTROPHIL 66.0 % Normal [facility] Comment on above: Performed By: #### C IRENE, 3094-0, LINER MACHINE OPERATOR HELPER, ELEC #### [facility] ([id number]) [address] [address] [place] [address] WBC (Bld) [#/Vol] 9.3 10*3/uL Normal 4.0-11.0 [facility] Comment on above: Performed By: #### Gabrielle BONILLA, 3094-0, LINER MACHINE OPERATOR HELPER, ELEC #### [facility] ([id number]) [address], [address] [place] [address] CREATININEon 11-19-2023 Creatinine [Mass/Vol] 3.18 mg/dL High 0.60-1.30 [facility] Comment on above: Result Comment: METH OD TRACEABLE TO IDMS STANDARD Performed By: #### C BCA, 3094-0, LINER MACHINE OPERATOR HELPER, ELEC #### [facility] ([id number]) [address], [address] [place] [address] GFR/1.73 sq M.predicted among non-blacks MDRD (S/P/Bld) [Vol rate/Area] 21 mL/min/{1.73_m2} Low >59 [facility] Comment on above: Result Comment: Reported eGFR is based on the CKD-EPI 2020 equation that does not use a race coefficient. Performed By: #### C BCA, 3094-0, LINER MACHINE OPERATOR HELPER, ELEC #### [facility] ([id number]) [address], [address] [place] [address] ELECTROLYTESon 11-19-2023 Anion gap [Moles/Vol] 9 mmol/L Normal 5-15 [facility] Comment on above: Performed By: #### C BCA, 3094-0, LINER MACHINE OPERATOR HELPER, ELEC #### [facility] ([id number]) [address], [address] [place] [address] Chloride [Moles/Vol] 100 mmol/L Normal 98-109 [facility] Comment on above: Performed By: #### C BCA, 3094-0, LINER MACHINE OPERATOR HELPER, ELEC #### [facility] ([id number]) [address], [address] [place] [address] CO2 [Moles/Vol] 22 mmol/L Normal 22-32 [facility] Comment on above: Performed By: #### C BCA, 3094-0, LINER MACHINE OPERATOR HELPER, ELEC #### [facility] ([id number]) [address], [address] [place] [address] Potassium [Moles/Vol] 3.9 mmol/L Normal 3.5-5.0 [facility] Comment on above: Performed By: #### C BCA, 3094-0, LINER MACHINE OPERATOR HELPER, ELEC #### [facility] ([id number]) [address], [address] [place] [address] Sodium [Moles/Vol] 131 mmol/L Low 134-146 [facility] Comment on above: Performed By: #### C BCA, 3094-0, LINER MACHINE OPERATOR HELPER, ELEC #### [facility] ([id number]) [address], [address] [place] [address] BLOOD UREA NITROGENon 2023 Urea nitrogen [Mass/Vol] 35 mg/dL High 5-27 [facility] Comment on above: Performed By: #### B ALCON CBCA, 1987-08, 66294-7 #### [facility] ([id number]) [address] [place] [address] #### 92663-9 #### [facility] ([id number]) [address] [place] [address] CALCIUMon 10-23-2023 Calcium [Mass/Vol] 8.1 mg/dL Low 8.5-10.5 [facility] Comment on above: Performed By: #### Laura RONDON, CBCA, 1987-08, 74696-7 #### [facility] ([id number]) [address] [place] [address] #### 13605-2 #### [facility] ([id number]) [address], [address] [place] [address] CBC AND AUTO DIFFon 10-23-19 24 ABSOLUTE BASOPHIL 0.0 X10E9/L Normal 0.0-0.2 [facility] Comment on above: Performed By: #### Laura RONDON, CBCA, 1987-08, 42896-1 #### [facility] ([id number]) [address] [place] [address] #### 93354-3 #### [facility] ([id number]) [address] [place] [address], [address] [place] [address] ABSOLUTE NEUTROPHIL 5.4 X10E9/L Normal 1.5-6.6 [facility] Comment on above: Performed By: #### B MP, CBCA, 1987-08, 33274-3 #### [facility] ([id number]) [address] [place] [address] #### 71696-0 #### [facility] ([id number]) [address] [place] [address], [address] [place] [address] Basophils/100 WBC (Bld) 0.5 % Normal [facility] Comment on above: Performed By: #### Laura RONDON, CBCA, 1987-08, 34358-8 #### [facility] ([id number]) [address] [place] [address] #### 45636-3 #### [facility] ([id number]) [address] [place] [address], [address] [place] [address] Eosinophils (Bld) [#/Vol] 0.3 10*3/uL Normal 0.0-0.4 [facility] Comment on above: Performed By: #### B MP, CBCA, 1987-08, 27048-0 #### [facility] ([id number]) [address] [place] [address] #### 76842-6 #### [facility] ([id number]) [address] [place] [address], [address] [place] [address] Eosinophils/100 WBC (Bld) 3.2 % Normal [facility] Comment on above: Performed By: #### B MP, CBCA, 1987-08, 06816-7 #### [facility] ([id number]) [address] [place] [address] #### 45930-5 #### [facility] ([id number]) [address] [facility], [address] [place] [address] Erythrocyte distribution width (RBC) [Ratio] 14.4 % Normal 11.5-15.0 [facility] Comment on above: Performed By: #### B ALCON, CBCA, 1987-08, 50148-3 #### [facility] ([id number]) [address] [place] [address] #### 20009-8 #### [facility] ([id number]) [address] [facility], [address] [place] [address] Hematocrit (Bld) [Volume fraction] 39.7 % Normal 39-49 [facility] Comment on above: Performed By: #### Laura RONDON, CBCA, 1987-08, 78364-0 #### [facility] ([id number]) [address] [place] [address] #### 84315-9 #### [facility] ([id number]) [address] [facility], [address] [place] [address] Hemoglobin (Bld) [Mass/Vol] 13.1 g/dL Normal 13.0-17.0 [facility] Comment on above: Performed By: #### Laura RONDON, CBCA, 1987-08, 79657-6 #### [facility] ([id number]) [address] [place] [address] #### 27687-5 #### [facility] ([id number]) [address] [facility], [address] [place] [address] Lymphocytes (Bld) [#/Vol] 2.1 10*3/uL Normal 1.0-3.5 [facility] Comment on above: Performed By: #### Laura MP, CBCA, 1987-08, 01581-4 #### [facility] ([id number]) [address] [place] [address] 48144 #### 66016-3 #### [facility] ([id number]) [address], [address] [place] [address] Lymphocytes/100 WBC (Bld) 24.5 % Normal [facility] Comment on above: Performed By: #### Laura RONDON, CBCA, 1987-08, #### [facility] ([id number]) [address] [place] [address]0968 #### 54114-4 #### [facility] ([id number]) [address] [facility], [address] [place] [address] MCH (RBC) [Entitic mass] 29.0 pg Normal 27-34 [facility] Comment on above: Performed By: #### Laura RONDON, CBCA, 1987-08, #### [facility] ([id number]) [address] [place] [address] 54281 #### 69046-3 #### [facility] ([id number]) [address], [address] [place] [address] MCHC (RBC) [Mass/Vol] 32.9 g/dL Normal 32-36 [facility] Comment on above: Performed By: #### Laura RONDON, CBCA, 1987-08, #### [facility] ([id number]) [address] [place] [address] 75585 #### 12398-8 #### [facility] ([id number]) [address], [address] [place] [address] MCV (RBC) [Entitic vol] 88 fL Normal 80-100 [facility] Comment on above: Performed By: #### Laura RONDON, CBCA, 1987-08, #### [facility] ([id number]) [address] [place] [address] 98376 #### 77125-0 #### [facility] ([id number]) [address], [address] [place] [address] Monocytes (Bld) [#/Vol] 0.8 10*3/uL Normal 0-0.9 [facility] Comment on above: Performed By: #### B MP, CBCA, 1987-08, #### [facility] ([id number]) [address] [place] [address] 34255 #### 22643-4 #### [facility] ([id number]) [address], [address] [place] [address] Monocytes/100 WBC (Bld) 9.2 % Normal [facility] Comment on above: Performed By: #### Laura MP, CBCA, 1987-08, #### [facility] ([id number]) [address] [place] [address] 49657 #### 16729-5 #### [facility] ([id number]) [address], [address] [place] [address] Neutrophils/100 WBC (Bld) 62.6 % Normal [facility] Comment on above: Performed By: #### Laura MP, CBCA, 1987-08, #### [facility] ([id number]) [address] [place] [address] 36811 #### 62394-0 #### [facility] ([id number]) [address], [address] [place] [address] Platelet mean volume (Bld) [Entitic vol] 8.6 fL Normal 7-12 [facility] Comment on above: Performed By: #### B MP, CBCA, 1987-08, 69060-8 #### [facility] ([id number]) [address] [place] [address] 17167 #### 89608-8 #### [facility] ([id number]) [address] [place] [address] Platelets (Bld) [#/Vol] 247 10*3/uL Normal 150-450 [facility] Comment on above: Performed By: #### B MP, CBCA, 1987-08, 89829-7 #### [facility] ([id number]) [address] [place] [address] 87064 #### 06896-7 #### [facility] ([id number]) [address] [facility], [address] [place] [address] RBC COUNT 4.51 X10E12/L Normal 4.10-5.70 [facility] Comment on above: Performed By: #### B MP, CBCA, 1987-08, 06326-5 #### [facility] ([id number]) [address] [place] [address] 85117 #### 43063-2 #### [facility] ([id number]) [address] [facility], [address] [place] [address] WBC (Bld) [#/Vol] 8.5 10*3/uL Normal 4.0-11.0 [facility] Comment on above: Performed By: #### B MP, CBCA, 1987-08, 53368-2 #### [facility] ([id number]) [address] [place] [address] 45310 #### 13330-3 #### [facility] ([id number]) [address] [facility], [address] [place] [address] CREATININEon 10-23-2023 Creatinine [Mass/Vol] 2.69 mg/dL High 0.70-1.20 [facility] Comment on above: Result Comment: METH OD TRACEABLE TO IDMS STANDARD Performed By: #### B JAMES RONDON, 1987-08, 78162-4 #### [facility] ([id number]) [address] [place] [address] 80609 #### 10334-8 #### [facility] ([id number]) [address] [facility], [address] [place] [address] GFR/1.73 sq M.predicted among non-blacks MDRD (S/P/Bld) [Vol rate/Area] 26 mL/min/{1.73_m2} Low >59 [facility] Comment on above: Result Comment: Reported eGFR is based on the CKD-EPI 2020 equation that does not use a race coefficient. Performed By: #### B JAMES RONDON, 1987-08, 59358-5 #### [facility] ([id number]) [address] [place] [address] 45379 #### 20055-6 #### [facility] ([id number]) [address] [facility], [address] [place] [address] Calcium.ionized (Bld) [Moles /Vol]on 10-23-2023 PORTABLE ICA 4.8 mg/dL Normal 4.5-5.3 [facility] Comment on above: Performed By: #### B JAMES RONDON, 1987-08, 67998-5 #### [facility] ([id number]) [address] [place] [address] 68280 #### 21415-7 #### [facility] ([id number]) [address] [place] [address], [address] [place] [address] ELECTROLYTESon 10-23-2023 Anion gap [Moles/Vol] 5 mmol/L Normal 5-15 [facility] Comment on above: Performed By: #### B JAMES RONDON, 1987-08, 84988-6 #### [facility] ([id number]) [address] [place] [address] 13128 #### 48498-8 #### [facility] ([id number]) [address] [facility], [address] [place] [address] Chloride [Moles/Vol] 108 mmol/L Normal 98-109 [facility] Comment on above: Performed By: #### JAMES Sanchez MP, 1987-08, 96296-3 #### [facility] ([id number]) [address] [place] [address] 02544 #### 35079-1 #### [facility] ([id number]) [address] [facility], [address] [place] [address] CO2 [Moles/Vol] 18 mmol/L Low 22-32 [facility] Comment on above: Performed By: #### JAMES Sanchez MP, 1987-08, 47808-2 #### [facility] ([id number]) [address] [place] [address] 04439 #### 03216-6 #### [facility] ([id number]) [address] [facility], [address] [place] [address] Potassium [Moles/Vol] 4.1 mmol/L Normal 3.5-5.0 [facility] Comment on above: Performed By: #### JAMES Sanchez MP, 1987-08, 30745-5 #### [facility] ([id number]) [address] [place] [address] 71825 #### 36678-5 #### [facility] ([id number]) [address] [facility], [address] [place] [address] Sodium [Moles/Vol] 131 mmol/L Low 134-146 [facility] Comment on above: Performed By: #### JAMES Sanchez MP, 1987-08, 36473-9 #### [facility] ([id number]) [address] [place] [address] #### 43053-7 #### [facility] ([id number]) [address], [address] [place] [address] ESR Photometric method (Bld) [Velocity]on 10-23-2023 ESR, ERYTHROCYTE SEDIMENTATION RATE 89 mm/h High 0-20 [facility] Comment on above: Performed By: #### B ALCON, CBCA, 1987-08, 07891-5 #### [facility] ([id number]) [address] [place] [address] 14589 #### 91349-0 #### [facility] ([id number]) [address], [address] [place] [address] HGB A1C (GLYCO-HGB)on 2023 Glucose [Mass/Vol] 235 mg/dL Normal [facility] Comment on above: Performed By: #### B ALCON, CBCA, 1987-08, 60238-4 #### [facility] ([id number]) [address] [place] [address] 66482 #### 26074-4 #### [facility] ([id number]) [address], [address] [place] [address] HbA1c (Bld) [Mass fraction] 9.8 % High 4.4-5.6 [facility] Comment on above: Result Comment: NOTE ADA Guidelines Result HgbA1c Normal : less than 5.7 % Prediabetes : 5.7 % to 6.4 % Diabetes : > 6.4 % Use with caution in patients with abnormal hemoglobin variants as the half-life of red blood cells and in vivo glycation rates are affected. Performed By: #### B ALCON, CBCA, 1987-08, 72780-7 #### [facility] ([id number]) [address] [place] [address] 35542 #### 67396-4 #### [facility] ([id number]) [address] [facility], [address] [place] [address] LIVER PANELon 10-23-2023 Albumin [Mass/Vol] 2.8 g/dL Low 3.2-5.3 [facility] Comment on above: Performed By: #### JAMES Sanchez MP, 1987-08, 03118-3 #### [facility] ([id number]) [address] [place] [address] 61854 #### 62152-4 #### [facility] ([id number]) [address] [facility], [address] [place] [address] ALP [Catalytic activity/Vol] 86 U/L Normal 39-130 [facility] Comment on above: Performed By: #### Laura RONDON CBCJarrett, 1987-08, 36246-9 #### [facility] ([id number]) [address] [place] [address] 93463 #### 86470-5 #### [facility] ([id number]) [address] [facility], [address] [place] [address] ALT [Catalytic activity/Vol] 19 U/L Normal 0-40 [facility] Comment on above: Performed By: #### Laura RONDON CBCJarrett, 1987-08, 86967-9 #### [facility] ([id number]) [address] [place] [address] 77181 #### 53868-9 #### [facility] ([id number]) [address] [facility], [address] [place] [address] AST [Catalytic activity/Vol] 15 U/L Normal 0-41 [facility] Comment on above: Performed By: #### Laura RONDON CBCA, 1987-08, 38364-5 #### [facility] ([id number]) [address] [place] [address] 54733 #### 26499-6 #### [facility] ([id number]) [address] [facility], [address] [place] [address] Bilirubin [Mass/Vol] 0.5 mg/dL Normal 0.3-1.2 [facility] Comment on above: Performed By: #### Laura RONDON CBCA, 1987-08, 14647-8 #### [facility] ([id number]) [address] [place] [address] 42895 #### 66484-6 #### [facility] ([id number]) [address] [place] [address], [address] [place] [address] Bilirubin.indirect [Mass/Vol] mg/dL Normal 0.0-0.4 [facility] Comment on above: Performed By: #### Laura RONDON CBCA, 1987-08, 41993-3 #### [facility] ([id number]) [address] [place] [address] 19461 #### 10738-3 #### [facility] ([id number]) [address] [place] [address], [address] [place] [address] Protein [Mass/Vol] 6.4 g/dL Normal 6.0-8.0 [facility] Comment on above: Performed By: #### Laura RONDON CBCA, 1987-08, 67769-8 #### [facility] ([id number]) [address] [place] [address] 90227 #### 05435-6 #### [facility] ([id number]) [facility] [facility], [address] [place] [address] Lipid 1996 panelon 4 Cholesterol [Mass/Vol] 135 mg/dL Low 150-200 [facility] Comment on above: Performed By: #### B JAMES RONDON, 62-6 #### [facility] ([id number]) [address] [place] [address] #### 85271-5 #### [facility] ([id number]) [address], [address] [place] [address] Cholesterol in HDL [Mass/Vol] 40 mg/dL Normal >39 [facility] Comment on above: Result Comment: HDL <40 mg/dL - High Risk HDL > or = 40mg/dL- Desirable HDL >60 mg/dL - Negative Risk Performed By: #### B JAMES RONDON, 1987-08, 16035-3 #### [facility] ([id number]) [address] [place] [address] 22126 #### 79507-9 #### [facility] ([id number]) [address], [address] [place] [address] Cholesterol in LDL [Mass/Vol] 57 mg/dL Normal <130 [facility] Comment on above: Result Comment: LDL <100 mg/dL - Desirable LDL >160 mg/dL - High Risk Performed By: #### JAMES Sanchez MP, 1987-08, 25239-2 #### [facility] ([id number]) [address] [place] [address] #### 13236-3 #### [facility] ([id number]) [address], [address] [place] [address] Cholesterol in VLDL [Mass/Vol] 38 mg/dL High 0-30 [facility] Comment on above: Performed By: #### B ALCON, CBCA, 1987-08, 08896-8 #### [facility] ([id number]) [address] [place] [address] 07354 #### 93556-4 #### [facility] ([id number]) [address] [facility], [address] [place] [address] CHOLESTEROL:HDL 3.4 Normal 1.0-5.0 [facility] Comment on above: Performed By: #### B ALCON, CBCA, 1987-08, 01544-9 #### [facility] ([id number]) [address] [place] [address] 38694 #### 57849-7 #### [facility] ([id number]) [address] [facility], [address] [place] [address] Triglyceride [Mass/Vol] 192 mg/dL High 27-150 [facility] Comment on above: Performed By: #### B ALCON, CBCA, 1987-08, 61803-2 #### [facility] ([id number]) [address] [place] [address] 99894 #### 38895-1 #### [facility] ([id number]) [address] [facility], [address] [place] [address] MAGNESIUMon 10-23-2023 Magnesium [Mass/Vol] 2.1 mg/dL Normal 1.8-2.6 [facility] Comment on above: Performed By: #### B ALCON, CBCA, 1987-08, 51211-6 #### [facility] ([id number]) [address] [place] [address] 38771 #### 61798-6 #### [facility] ([id number]) [address] [facility], [address] [place] [address] Natriuretic peptide.B melony silver N-Terminal IA [Mass/Vol]on 10-23-2023 Natriuretic peptide B (Bld) [Mass/Vol] 1528 pg/mL High <=88 [facility] Comment on above: Result Comment: NOTE NT-proBNP [...] absence of renal failure. Test Performed by: [place] [address] Car Worker: Brittani Nieves Ph.D.; CLIA# [id number] Performed By: #### B JAMES RONDON, 1987-08, 00424-4 #### [facility] ([id number]) [address] [place] [address] 11081 #### 54851-4 #### [facility] ([id number]) [address] [place] [address], [address] [place] [address] Prostate specific Ag [Mass/V ol]on 10-23-2023 PSA SCREEN 1.65 ng/mL Normal 0.00-4.00 [facility] Comment on above: Result Comment: The method used for this test is Rufus Bertrand DXI chemiluminescent immunoassay. Values obtained by different assay methods cannot be used interchangeably. Performed By: #### B JAMES RONDON, 1987-08, 25463-4 #### [facility] ([id number]) [address] [place] [address] 57080 #### 36367-9 #### [facility] ([id number]) [address] [place] [address], [address] [place] [address] Vitamin D+Metabolites [Mass/ Vol]on 10-23-2023 VITAMIN D 25 HYD TOT 8.3 ng/mL Low 30-100 [facility] Comment on above: Result Comment: Vitamin D status 25 [place] Vitamin D Deficiency <20 ng/mL Insufficiency 20-29 ng/mL Sufficiency 30-100 ng/mL Toxicity >100 ng/mL NOTE: A pediatric reference range has not been established by the tmh teacher of this kit. The [place] [employer] recommends a Vitamin D level of = or >20ng/mL in infants and children. Performed By: #### B JAMES RONDON, 1987-08, 30459-1 #### [facility] ([id number]) [address] [place] [address] 07320 #### 88410-9 #### [facility] ([id number]) [address] [facility] [address] [place] [address] BLOOD UREA NITROGENon 2023 Urea nitrogen [Mass/Vol] 33 mg/dL High 5-27 [facility] Comment on above: Performed By: #### B JAMES RONDON, 1987-08, 36166-7 #### [facility] ([id number]) [address] [place] [address] 02914 #### 74888-2 #### [facility] ([id number]) [address] [facility], [facility] [address] [place] [address] CREATININEon 09-03-2023 Creatinine [Mass/Vol] 2.42 mg/dL High 0.70-1.20 [facility] Comment on above: Result Comment: METH OD TRACEABLE TO IDMS STANDARD Performed By: #### B JAMES RONDON, 1987-08, 58571-3 #### [facility] ([id number]) [address] [place] [address] 95701 #### 40486-4 #### [facility] ([id number]) [address] [facility], [address] [place] [address] GFR/1.73 sq M.predicted among non-blacks MDRD (S/P/Bld) [Vol rate/Area] 29 mL/min/{1.73_m2} Low >59 [facility] Comment on above: Result Comment: Reported eGFR is based on the CKD-EPI 2020 equation that does not use a race coefficient. Performed By: #### B JAMES RONDON, 1987-08, 25327-6 #### [facility] ([id number]) [address] [place] [address] 19789 #### 44791-3 #### [facility] ([id number]) [address], [address] [place] [address] ELECTROLYTESon 09-03-2023 Anion gap [Moles/Vol] 7 mmol/L Normal 5-15 [facility] Comment on above: Performed By: #### B JAMES RONDON, 1987-08, 27370-8 #### [facility] ([id number]) [address] [place] [address] 38080 #### 66974-2 #### [facility] ([id number]) [address] [facility], [address] [place] [address] Chloride [Moles/Vol] 106 mmol/L Normal 98-109 [facility] Comment on above: Performed By: #### B JAMES RONDON, 1987-08, 48060-3 #### [facility] ([id number]) [address] [place] [address] 44877 #### 33394-5 #### [facility] ([id number]) [address], [address] [place] [address] CO2 [Moles/Vol] 21 mmol/L Low 22-32 [facility] Comment on above: Performed By: #### B JAMES RONDON, 1987-08, 31628-7 #### [facility] ([id number]) [address] [place] [address] 74116 #### 16292-8 #### [facility] ([id number]) [address] [place] [address], [address] [place] [address] Potassium [Moles/Vol] 4.2 mmol/L Normal 3.5-5.0 [facility] Comment on above: Performed By: #### JAMES Sanchez MP, 1987-08, 86860-6 #### [facility] ([id number]) [address] [place] [address] 32279 #### 30553-8 #### [facility] ([id number]) [address] [place] [address], [address] [place] [address] Sodium [Moles/Vol] 134 mmol/L Normal 134-146 [facility] Comment on above: Performed By: #### JAMES Sanchez MP, 1987-08, 65457-3 #### [facility] ([id number]) [address] [place] [address] 38184 #### 91362-3 #### [facility] ([id number]) [address] [place] [address], [address] [place] [address] Natriuretic peptide.B prohor adrianne N-Terminal [Mass/Vol]on 09-03-2023 NT Pro BNP See Below Normal [facility] Comment on above: Result Comment: NOTE TEST RESULT FLAG UNIT REF.RANGE --- PRO B Natr Peptide 933 H pg/mL <125 Test Performed By: [facility] [employer] [address] [place] [address] Control Systems Drafting Officer: Charlotte Hart III #[id number] Performed By: #### JAMES Sanchez MP, 1987-08, 41191-3 #### [facility] ([id number]) [address] [place] [address] #### 22356-3 #### [facility] ([id number]) [address], [address] [place] [address] BLOOD UREA NITROGENon 2023 Urea nitrogen [Mass/Vol] 38 mg/dL High 5-27 [facility] Comment on above: Performed By: #### B JAMES RONDON, 1987-08, 25211-5 #### [facility] ([id number]) [address] [place] [address] #### 33144-9 #### [facility] ([id number]) [address], [address] [place] [address] CREATININEon 07-31-2023 Creatinine [Mass/Vol] 2.76 mg/dL High 0.70-1.20 [facility] Comment on above: Result Comment: METH OD TRACEABLE TO IDMS STANDARD Performed By: #### B JAMES RONDON, 1987-08, 84328-1 #### [facility] ([id number]) [address] [place] [address] 99931 #### 87182-4 #### [facility] ([id number]) [address], [address] [address] GFR/1.73 sq M.predicted among non-blacks MDRD (S/P/Bld) [Vol rate/Area] 25 mL/min/{1.73_m2} Low >59 [facility] Comment on above: Result Comment: Reported eGFR is based on the CKD-EPI 2020 equation that does not use a race coefficient. Performed By: #### JAMES Sanchez MP, 1987-08, 60279-1 #### [facility] ([id number]) [address] [place] [address] 91356 #### 52697-5 #### [facility] ([id number]) [address], [address] [place] [address] ELECTROLYTESon 07-31-2023 Anion gap [Moles/Vol] 7 mmol/L Normal 5-15 [facility] Comment on above: Performed By: #### JAMES Sanchez MP, 1987-08, #### [facility] ([id number]) [address] [place] [address] 56965 #### 30432-0 #### [facility] ([id number]) [address] [facility], [address] [place] [address] Chloride [Moles/Vol] 104 mmol/L Normal 98-109 [facility] Comment on above: Performed By: #### JAMES Sanchez MP, 1987-08, #### [facility] ([id number]) [address] [place] [address] 89969 #### 62951-5 #### [facility] ([id number]) [address] [facility], [address] [place] [address] CO2 [Moles/Vol] 21 mmol/L Low 22-32 [facility] Comment on above: Performed By: #### JAMES Sanchez MP, 1987-08, #### [facility] ([id number]) [address] [place] [address] 36857 #### 62474-9 #### [facility] ([id number]) [address] [facility], [address] [place] [address] Potassium [Moles/Vol] 4.3 mmol/L Normal 3.5-5.0 [facility] Comment on above: Performed By: #### JAMES Sanchez MP, 1987-08, #### [facility] ([id number]) [address] [place] [address] 92672 #### 20820-9 #### [facility] ([id number]) [address] [facility], [address] [place] [address] Sodium [Moles/Vol] 132 mmol/L Low 134-146 [facility] Comment on above: Performed By: #### JAMES Sanchez MP, 1987-08, 95756-2 #### [facility] ([id number]) [address] [place] [address] 38785 #### 23765-3 #### [facility] ([id number]) [address] [facility], [facility] [address] [place] [address] Natriuretic peptide.B prohor adrianne N-Terminal [Mass/Vol]on 07-31-2023 NT Pro BNP See Below Normal [facility] Comment on above: Result Comment: NOTE TEST RESULT FLAG UNIT REF.RANGE --- PRO B Natr Peptide 1296 H pg/mL <125 Test Performed By: [place] [address] Control Systems Drafting Officer: Charlotte Hart III #[id number] Performed By: #### JAMES Sanchez MP, 1987-08, 38582-5 #### [facility] ([id number]) [address] [place] [address] 53850 #### 84300-9 #### [facility] ([id number]) [address] [place] [address] [address] [place] [address] BLOOD UREA NITROGENon 2023 Urea nitrogen [Mass/Vol] 34 mg/dL High 5-27 [facility] Comment on above: Performed By: #### JAMES Sanchez MP, 1987-08, 26810-2 #### [facility] ([id number]) [address] [place] [address] 08539 #### 61865-6 #### [facility] ([id number]) [address] [facility] [address] [place] [address] CREATININEon 07-02-2023 Creatinine [Mass/Vol] 3.13 mg/dL High 0.70-1.20 [facility] Comment on above: Result Comment: METH OD TRACEABLE TO IDMS STANDARD Performed By: #### B JAMES RONDON, 1987-08, 06071-2 #### [facility] ([id number]) [address] [place] [address] 01227 #### 57138-6 #### [facility] ([id number]) [address] [address] GFR/1.73 sq M.predicted among non-blacks MDRD (S/P/Bld) [Vol rate/Area] 22 mL/min/{1.73_m2} Low >59 [facility] Comment on above: Result Comment: Reported eGFR is based on the CKD-EPI 2020 equation that does not use a race coefficient. Performed By: #### B JAMES RONDON, 1987-08, 32635-9 #### [facility] ([id number]) [address] [place] [address] 83169 #### 00669-9 #### [facility] ([id number]) [address] [facility] [address] [place] [address] ELECTROLYTESon 07-02-2023 Anion gap [Moles/Vol] 8 mmol/L Normal 5-15 [facility] Comment on above: Performed By: #### JAMES Sanchez MP, 1987-08, 04091-8 #### [facility] ([id number]) [address] [place] [address] 82505 #### 33695-9 #### [facility] ([id number]) [address] [address] Chloride [Moles/Vol] 106 mmol/L Normal 98-109 [facility] Comment on above: Performed By: #### JAMES Sanchez MP, 1987-08, 39013-0 #### [facility] ([id number]) [address] [place] [address] 46527 #### 24177-3 #### [facility] ([id number]) [address], [address] [place] [address] CO2 [Moles/Vol] 20 mmol/L Low 22-32 [facility] Comment on above: Performed By: #### JAMES Sanchez MP, 1987-08, 94712-0 #### [facility] ([id number]) [address] [place] [address] 42107 #### 37175-4 #### [facility] ([id number]) [address] [facility], [address] [place] [address] Potassium [Moles/Vol] 4.7 mmol/L Normal 3.5-5.0 [facility] Comment on above: Performed By: #### JAMES Sanchez MP, 1987-08, 03146-0 #### [facility] ([id number]) [address] [place] [address] 12341 #### 68763-4 #### [facility] ([id number]) [address], [address] [place] [address] Sodium [Moles/Vol] 134 mmol/L Normal 134-146 [facility] Comment on above: Performed By: #### JAMES Sanchez MP, 1987-08, 12172-8 #### [facility] ([id number]) [address] [place] [address] 62021 #### 02452-1 #### [facility] ([id number]) [address], [address] [place] [address] Natriuretic peptide.B prohor adrianne N-Terminal [Mass/Vol]on 07-02-2023 NT Pro BNP See Below Normal [facility] Comment on above: Result Comment: NOTE TEST RESULT FLAG UNIT REF.RANGE --- PRO B Natr Peptide 413 H pg/mL <125 Test Performed By: [place] [address] [employer] Systems Drafting Officer: Tyler Valle III, M.D. CLIA #[id number] Performed By: #### B JAMES RONDON, 1987-08, 19266-4 #### [facility] ([id number]) [address] [place] [address] 00180 #### [id number] #### [facility] ([id number]) [address] [place] [address] [address] [place] [address] BLOOD UREA NITROGENon 2023 Urea nitrogen [Mass/Vol] 33 mg/dL High 5-27 [facility] Comment on above: Performed By: #### JAMES Sanchez MP, 1987-08, 65038-6 #### [facility] ([id number]) [address] [place] [address] 294[address] #### 02579-8 #### [facility] ([id number]) [address] [place] [address] [address] [place] [address] CREATININEon 06-04-2023 Creatinine [Mass/Vol] 2.37 mg/dL High 0.70-1.20 [facility] Comment on above: Result Comment: METH OD TRACEABLE TO IDMS STANDARD Performed By: #### B JAMES RONDON, 1987-08, 87232-4 #### [facility] ([id number]) [address] [place] [address] #### 01751-9 #### [facility] ([id number]) [address], [address] [place] [address] GFR/1.73 sq M.predicted among non-blacks MDRD (S/P/Bld) [Vol rate/Area] 30 mL/min/{1.73_m2} Low >59 [facility] Comment on above: Result Comment: Reported eGFR is based on the CKD-EPI 2020 equation that does not use a race coefficient. Performed By: #### B JAMES RONDON, 1987-08, 31710-8 #### [facility] ([id number]) [address] [place] [address] #### 10004-6 #### [facility] ([id number]) [address], [address] [place] [address] ELECTROLYTESon 06-04-2023 Anion gap [Moles/Vol] 7 mmol/L Normal 5-15 [facility] Comment on above: Performed By: #### JAMES Sanchez MP, 1987-08, 25438-5 #### [facility] ([id number]) [address] [place] [address]70[address] #### 70364-3 #### [facility] ([id number]) [address], [address] [place] [address] Chloride [Moles/Vol] 106 mmol/L Normal 98-109 [facility] Comment on above: Performed By: #### JAMES Sanchez MP, 1987-08, 67177-2 #### [facility] ([id number]) [address] [place] [address] #### 53786-5 #### [facility] ([id number]) [address], [address] [place] [address] CO2 [Moles/Vol] 20 mmol/L Low 22-32 [facility] Comment on above: Performed By: #### B ALCON CBCA, 1987-08, 76253-8 #### [facility] ([id number]) [address] [place] [address] 11313 #### 55041-3 #### [facility] ([id number]) [address] [facility], [address] [place] [address] Potassium [Moles/Vol] 4.6 mmol/L Normal 3.5-5.0 [facility] Comment on above: Performed By: #### B ALCON, CBCA, 1987-08, 84219-3 #### [facility] ([id number]) [address] [place] [address] 09799 #### 74819-6 #### [facility] ([id number]) [address] [facility], [address] [place] [address] Sodium [Moles/Vol] 133 mmol/L Low 134-146 [facility] Comment on above: Performed By: #### Laura RONDON CBCA, 1987-08, 65029-0 #### [facility] ([id number]) [address] [place] [address] 11628 #### 33392-5 #### [facility] ([id number]) [address] [facility], [address] [place] [address] Natriuretic peptide.B prohor adrianne N-Terminal [Mass/Vol]on 06-04-2023 NT Pro BNP See Below Normal [facility] Comment on above: Result Comment: NOTE TEST RESULT FLAG UNIT REF.RANGE --- PRO B Natr Peptide 526 H pg/mL <125 Test Performed By: [facility] [address] [address] Control Systems Drafting Officer: Tyler Valle III, M.D. CLIA #[id number] Performed By: #### B MP, CBCA, 1987-, #### [facility] ([id number]) [address] [facility], [place] [address] #### 04524-6 #### [facility] ([id number]) [address] [place] [address], [address] [place] [address] Cult,Urineon 06-03-2023 Cult,Urine Specimen Description .VOIDED URINE [...] Tobramycin 4 SUSCEPTIBLE Trimethoprim/Sulfa >=320 RESISTANT Resistant [facility] Comment on above: Performed By: #### U RC #### [address] [id number] Car Worker: Griffin Carrion MD [facility] [address] [place] [address] Car Worker: Jameson Aaron MD UA w/Reflex Cultureon 2023 Bilirubin, SemiQt,Ur Negative Normal NEG [facility] Comment on above: Performed By: #### U AXCOURTNEY #### [facility] [address] [place] [address] Car Worker: Jameson Aaron MD Blood, Urine TRACE Abnormal NEG [facility] Comment on above: Performed By: #### U AXLORIO #### [facility] [address] [place], [place] [address]83 Car Worker: Jameson Aaron MD Clarity (U) SLIGHTLY CLOUDY Abnormal CLEAR [facility] Comment on above: Performed By: #### U AX, UMICAO #### [facility] [address] [place] [address] [place] [place], [place] 4052883 Car Worker: Jameson Aaron MD Color (U) Yellow Normal YEL [facility] Comment on above: Performed By: #### U AX, UMICAO #### [address] [place], [place] 8044[address] Car Worker: Jameson Aaron MD Glucose Ql (U) 3+ mg/dL Abnormal NEG [facility] Comment on above: Performed By: #### U AX, UMICAO #### [address] [place], [place] 08[address]83 Car Worker: Jameson Aaron MD Ketones Ql (U) Negative Normal NEG [facility] Comment on above: Performed By: #### U AX, UMICAO #### [address] [place] [address] Car Worker: Jameson Aaron MD Leukocyte esterase Test strip Ql (U) TRACE Abnormal NEG [facility] Comment on above: Performed By: #### U AX, UMICAO #### [facility] [address] [place] [address] [place] [address] Car Worker: Jameson Aaron MD Nitrite,Ur Negative Normal NEG [facility] Comment on above: Performed By: #### U AX, UMICAO #### [address] [place], [place] 5606783 Car Worker: Jameson Aaron MD PH,Ur 5.5 Normal 5.0-9.0 [facility] Comment on above: Performed By: #### U AX, UMICAO #### [facility] [address] [place], [place] 28[address]83 Car Worker: Jamesno Aaron MD Protein Ql (U) 2+ mg/dL Abnormal NEG [facility] Comment on above: Performed By: #### U AX, UMICAO #### [facility] [address] [place], [place] 9396883 Car Worker: Jameson Aaron MD Spec. Hallie,Ur 1.025 High 1.010-1.020 [facility] Comment on above: Performed By: #### U AX, UMICAO #### [address] [place], [place] 3167483 Car Worker: Jameson Aaron MD Urobilinogen,Ur Normal Normal 0.0-1.0 [facility] Comment on above: Performed By: #### U AX, UMICAO #### [facility] [address] [place] [address] Dr. [place], [place] 7126783 Car Worker: Jameson Aaron MD Urinalysis,Microon 4 Bacteria 2+ Abnormal NONE [facility] Comment on above: Performed By: #### U AX, UMICAO #### [address] [place], [place] 4817683 Car Worker: Jameson Aaron MD Epithelial cells LM Ql (Urine sed) 0 TO 2 Normal 0-5 [facility] Comment on above: Performed By: #### U AX, UMICAO #### [facility] [address] [place], [place] 880[address]83 Car Worker: Jameson Aaron MD Epithelial, Renal 0 TO 2 Normal 0 [facility] Comment on above: Performed By: #### U AX, UMICAO #### [facility] [address] [place], [place] 799[address]83 Car Worker: Jameson Aaron MD Urine RBC's 0 TO 2 Normal 0-2 [facility] Comment on above: Performed By: #### U AX, UMICAO #### [facility] [address] [place] [address] Car Worker: Jameson Aaron MD Urine WBC's 10 TO 20 Normal 0-5 [facility] Comment on above: Performed By: #### U AX, UMICAO #### [facility] [address] [place] [address] Car Worker: Jameson Aaron MD Yeast PRESENCE NOTED Abnormal NONE [facility] Comment on above: Performed By: #### U AX, UMICAO #### [facility] [address] [place] [address] Car Worker: Jameson Aaron MD BLOOD UREA NITROGENon 2023 Urea nitrogen [Mass/Vol] 44 mg/dL High 5-27 [facility] Comment on above: Performed By: #### E LEC, 3094-0, LINER MACHINE OPERATOR HELPER, 27258-8 #### [facility] ([id number]) [address] [place] [address] 55189 #### 10133-1, HA1C #### [facility] ([id number]) [address], [address] [place] [address] CREATININEon 05-06-2023 Creatinine [Mass/Vol] 2.71 mg/dL High 0.70-1.20 [facility] Comment on above: Result Comment: METH OD TRACEABLE TO IDMS STANDARD Performed By: #### E LEC, 3094-0, LINER MACHINE OPERATOR HELPER, 35529-4 #### [facility] ([id number]) [address] [place] [address] 90173 #### 23620-8, HA1C #### [facility] ([id number]) [address] [facility], [address] [place] [address] GFR/1.73 sq M.predicted among non-blacks MDRD (S/P/Bld) [Vol rate/Area] 26 mL/min/{1.73_m2} Low >59 [facility] Comment on above: Result Comment: Reported eGFR is based on the CKD-EPI 2020 equation that does not use a race coefficient. Performed By: #### E LEC, 3094-0, LINER MACHINE OPERATOR HELPER, 55476-7 #### [facility] ([id number]) [address] [place] [address] 54822 #### 78629-2, HA1C #### [facility] ([id number]) [address], [address] [place] [address] ELECTROLYTESon 05-06-2023 Anion gap [Moles/Vol] 11 mmol/L Normal 5-15 [facility] Comment on above: Performed By: #### E LEC, 3094-0, LINER MACHINE OPERATOR HELPER, 83203-5 #### [facility] ([id number]) [address] [place] [address] 21981 #### 05602-9, HA1C #### [facility] ([id number]) [address] [facility], [address] [place] [address] Chloride [Moles/Vol] 101 mmol/L Normal 98-109 [facility] Comment on above: Performed By: #### E LEC, 3094-0, LINER MACHINE OPERATOR HELPER, 43899-7 #### [facility] ([id number]) [address] [place] [address] 07468 #### 10205-8, HA1C #### [facility] ([id number]) [address], [address] [place] [address] CO2 [Moles/Vol] 18 mmol/L Low 22-32 [facility] Comment on above: Performed By: #### E LEC, 3094-0, LINER MACHINE OPERATOR HELPER, 85952-0 #### [facility] ([id number]) [address] [place] [address] 60455 #### 22721-4, HA1C #### [facility] ([id number]) [address] [facility], [address] [place] [address] Potassium [Moles/Vol] 4.4 mmol/L Normal 3.5-5.0 [facility] Comment on above: Performed By: #### E LEC, 3094-0, LINER MACHINE OPERATOR HELPER, 30433-5 #### [facility] ([id number]) [address] [place] [address] 20117 #### 30929-1, HA1C #### [facility] ([id number]) [address] [place] [address], [address] [place] [address] Sodium [Moles/Vol] 130 mmol/L Low 134-146 [facility] Comment on above: Performed By: #### E LEC, 3094-0, LINER MACHINE OPERATOR HELPER, 25234-0 #### [facility] ([id number]) [address] [place] [address] #### 72267-9, HA1C #### [facility] ([id number]) [address] [place] [address], [address] [place] [address] HGB A1C (GLYCO-HGB)on 2023 Glucose [Mass/Vol] 260 mg/dL Normal [facility] Comment on above: Performed By: #### B MP, CBCA, 1987-08, 56652-7 #### [facility] ([id number]) [address] [place] [address] 16714 #### 07540-6 #### [facility] ([id number]) [address] [place] [address], [address] [place] [address] HbA1c (Bld) [Mass fraction] 10.7 % High 4.4-5.6 [facility] Comment on above: Result Comment: NOTE ADA Guidelines Result HgbA1c Normal : less than 5.7 % Prediabetes : 5.7 % to 6.4 % Diabetes : > 6.4 % Use with caution in patients with abnormal hemoglobin variants as the half-life of red blood cells and in vivo glycation rates are affected. Performed By: #### B MP, CBCA, 1987-08, 69040-6 #### [facility] ([id number]) [address] [place] [address] 86313 #### 07737-8 #### [facility] ([id number]) [address] [facility], [address] [place] [address] Lipid 1996 panelon 4 Cholesterol [Mass/Vol] 205 mg/dL High 150-200 [facility] Comment on above: Performed By: #### Tiki LEC, 3094-0, LINER MACHINE OPERATOR HELPER, 17049-1 #### [facility] ([id number]) [address] [place] [address] 63918 #### 80382-3, HA1C #### [facility] ([id number]) [address] [place] [address], [address] [place] [address] Cholesterol in HDL [Mass/Vol] 35 mg/dL Low >39 [facility] Comment on above: Result Comment: HDL <40 mg/dL - High Risk HDL > or = 40mg/dL- Desirable HDL >60 mg/dL - Negative Risk Performed By: #### Tiki LEC, 3094-0, LINER MACHINE OPERATOR HELPER, 35119-8 #### [facility] ([id number]) [address] [place] [address] 55098 #### 12000-4, HA1C #### [facility] ([id number]) [address] [facility], [address] [place] [address] Cholesterol in LDL [Mass/Vol] 120 mg/dL Normal <130 [facility] Comment on above: Result Comment: LDL <100 mg/dL - Desirable LDL >160 mg/dL - High Risk Performed By: #### E LEC, 3094-0, LINER MACHINE OPERATOR HELPER, 18661-4 #### [facility] ([id number]) [address] [place] [address] 98617 #### 56364-6, HA1C #### [facility] ([id number]) [address] [place] [address], [address] [place] [address] Cholesterol in VLDL [Mass/Vol] 50 mg/dL High 0-30 [facility] Comment on above: Performed By: #### E LEC, 3094-0, LINER MACHINE OPERATOR HELPER, 78969-0 #### [facility] ([id number]) [address] [place] [address] 86013 #### 73521-6, HA1C #### [facility] ([id number]) [facility], [address] [place] [address] CHOLESTEROL:HDL 5.9 High 1.0-5.0 [facility] Comment on above: Performed By: #### E LEC, 3094-0, LINER MACHINE OPERATOR HELPER, 68703-8 #### [facility] ([id number]) [address] [place] [address] 67143 #### 57315-2, HA1C #### [facility] ([id number]) [address] [facility], [address] [place] [address] Triglyceride [Mass/Vol] 248 mg/dL High 27-150 [facility] Comment on above: Performed By: #### E LEC, 3094-0, LINER 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 OPERATOR HELPER, 87549-4 #### [facility] ([id number]) [address] [place] [address] 21915 #### 25646-8, HA1C #### [facility] ([id number]) [address], [address] [place] [address] MICROALBUMIN - ALBUMIN:CREAT ININE URINE RATIOon 05-06-2023 ALB/CREAT RATIO 2747.0 mg/g creat High 0.0-30.0 Pr [facility] Comment on above: Performed By: #### B ALCON, CBCA, 1987-08, 78137-8 #### [facility] ([id number]) [address] [place] [address] 78720 #### 30486-4 #### [facility] ([id number]) [address], [address] [place] [address] Albumin DL <= 20 mg/L (U) [Mass/Vol] 195.2 mg/dL High 0.0-1.9 [facility] Comment on above: Performed By: #### Laura RONDON, CBCA, 1987-08, 10136-1 #### [facility] ([id number]) [address] [place] [address] 12917 #### 96772-9 #### [facility] ([id number]) [address], [address] [place] [address] URINE CREAT 71.06 mg/dL Normal [facility] Comment on above: Performed By: #### Laura RONDON, CBCA, 1987-08, 00595-8 #### [facility] ([id number]) [address] [place] [address] 33429 #### 00479-0 #### [facility] ([id number]) [address], [address] [place] [address] Natriuretic peptide.B prohor adrianne N-Terminal [Mass/Vol]on 05-06-2023 NT Pro BNP See Below Normal [facility] Comment on above: Result Comment: NOTE TEST RESULT FLAG UNIT REF.RANGE --- PRO B Natr Peptide 314 H pg/mL <125 Test Performed By: [facility] [address] [place] [address] Control Systems Drafting Officer: Tyler Valle III, M.D. CLIA #[id number] Performed By: #### B MP, CBCA, 1987-08, 63652-7 #### [facility] ([id number]) [address] [place] [address] 05719 #### 85377-3 #### [facility] ([id number]) [address] [place] [address], [address] [place] [address] URINALYSISon 05-06-2023 Bilirubin Ql (U) Negative Normal NEG [facility] Comment on above: Performed By: #### U A #### [facility] ([id number]) [address] [place] [address] BLOOD/HGB Trace Abnormal NEG [facility] Comment on above: Performed By: #### U A #### [facility] ([id number]) [address] [place] [address] 38913 Color (U) YELLOW Normal YELLOW [facility] Comment on above: Performed By: #### U A #### [facility] ([id number]) [address] [place] [address] 64725 Glucose Ql (U) >1000 Abnormal NEG [facility] Comment on above: Performed By: #### U A #### [facility] ([id number]) [address] [place] [address] 16158 Ketones Ql (U) Negative Normal NEG [facility] Comment on above: Performed By: #### U A #### [facility] ([id number]) [address] [place] [address] 06672 Leukocyte esterase Test strip Ql (U) Negative Normal NEG [facility] Comment on above: Result Comment: HIGH CONCENTRATIONS OF GLUCOSE MAY DECREASE THE REACTIVITY OF THE DIPSTICK LEUKOCYTE TEST PAD. Performed By: #### U A #### [facility] ([id number]) [address] [place] [address] 854[address] MUCOUS PRESENT Abnormal NONE [facility] Comment on above: Performed By: #### U A #### [facility] ([id number]) [address] [place] [address] 07902 Nitrite Ql (U) Positive Abnormal NEG [facility] Comment on above: Performed By: #### U A #### [facility] ([id number]) [address] [place] [address] 10949 pH (U) 6.0 [pH] Normal 5.0-8.5 [facility] Comment on above: Performed By: #### U A #### [facility] ([id number]) [address] [place] [address] 42722 Protein Ql (U) >300 Abnormal NEG [facility] Comment on above: Performed By: #### U A #### [facility] ([id number]) [address] [place] [address] 41465 R.B.CELLS 5 /hpf Normal 0-5 [facility] Comment on above: Performed By: #### U A #### [facility] ([id number]) [address] [place] [address] 64412 Specific gravity (U) [Rel density] 1.015 Normal 1.003-1.035 [facility] Comment on above: Performed By: #### U A #### [facility] ([id number]) [address] [place] [address] 44710 SQUAMOUS EPITHELIUM 4 /hpf Normal 0-5 [facility] Comment on above: Performed By: #### U A #### [facility] ([id number]) [address] [place] [address] 20373 TURBIDITY HAZY Abnormal CLEAR [facility] Comment on above: Performed By: #### U A #### [facility] ([id number]) [address] [place] [address] 10670 Urobilinogen Qn (U) 0.2 {Chaya'U}/dL Normal <1.1 [facility] Comment on above: Performed By: #### U A #### [facility] ([id number]) [address] [place] [address] 21433 W.B.CELLS >100 High 0-5 [facility] Comment on above: Performed By: #### U A #### [facility] ([id number]) [address] [place] [address] 00393 URINE CULTUREon 05-06-2023 Bacteria identified Cx Nom (U) SPECIMEN NOTES URINE RECEIVED WITHOUT PRESERVATIVE CULTURE RESULTS MULTIPLE SPECIES PRESENT. PROBABLE COLLECTION CONTAMINATION. SUGGEST REPEAT SPECIMEN. URINE RECEIVED WITHOUT PRESERVATIVE-DELAYS IN TRANSPORT MAY AFFECT RESULTS.INTERPRET WITH CAUTION AND CLINICAL CORRELATION IS RECOMMENDED. Normal [facility] Comment on above: Performed By: #### B MP, CBCA, 1987-, 48275-9 #### [facility] ([id number]) [address] [place] [address] 75640 #### 79498-4 #### [facility] ([id number]) [address] [facility], [address] [place] [address] BASIC METABOLIC PANLon 04-19 Anion gap [Moles/Vol] 6 mmol/L Normal 5-15 [facility] Comment on above: Performed By: #### B MP, CBCA, 1987-08, 58991-4 #### [facility] ([id number]) [address] [place] [address] 50753 #### 84597-0 #### [facility] ([id number]) [address] [place] [address] Calcium [Mass/Vol] 8.6 mg/dL Normal 8.5-10.5 [facility] Comment on above: Performed By: #### B MP, CBCA, 1987-08, 53127-4 #### [facility] ([id number]) [address] [place] [address] 90589 #### 72674-8 #### [facility] ([id number]) [address], [address] [place] [address] Chloride [Moles/Vol] 101 mmol/L Normal 98-109 [facility] Comment on above: Performed By: #### B MP, CBCA, 1987-08, 46255-0 #### [facility] ([id number]) [address] [place] [address] 33808 #### 31821-7 #### [facility] ([id number]) [address], [address] [place] [address] CO2 [Moles/Vol] 19 mmol/L Low 22-32 [facility] Comment on above: Performed By: #### B MP, CBCA, 1987-08, 07362-8 #### [facility] ([id number]) [address] [place] [address] 70595 #### 22685-7 #### [facility] ([id number]) [address], [address] [place] [address] Creatinine [Mass/Vol] 2.57 mg/dL High 0.70-1.20 [facility] Comment on above: Result Comment: METH OD TRACEABLE TO IDMS STANDARD Performed By: #### B JAMES RONDON, 1987-08, 40415-6 #### [facility] ([id number]) [address] [place] [address] 64616 #### 16071-9 #### [facility] ([id number]) [address], [address] [place] [address] GFR/1.73 sq M.predicted among non-blacks MDRD (S/P/Bld) [Vol rate/Area] 27 mL/min/{1.73_m2} Low >59 [facility] Comment on above: Result Comment: Reported eGFR is based on the CKD-EPI 2020 equation that does not use a race coefficient. Performed By: #### B JAMES RONDON, 1987-08, #### [facility] ([id number]) [address] [place] [address] 78710 #### 39723-8 #### [facility] ([id number]) [address], [address] [place] [address] Glucose [Mass/Vol] 377 mg/dL High 65-99 [facility] Comment on above: Performed By: #### B JAMES RONDON, 1987-08, 78230-5 #### [facility] ([id number]) [address] [place] [address] 07009 #### 89399-1 #### [facility] ([id number]) [address], [address] [place] [address] Potassium [Moles/Vol] 4.2 mmol/L Normal 3.5-5.0 [facility] Comment on above: Performed By: #### B JAMES RONDON, 1987-08, #### [facility] ([id number]) [address] [place] [address] 96974 #### 43307-7 #### [facility] ([id number]) [address] [facility], [address] [place] [address] Sodium [Moles/Vol] 126 mmol/L Low 134-146 [facility] Comment on above: Performed By: #### B ALCON, CBCA, 1987-08, 32118-4 #### [facility] ([id number]) [address] [place] [address] 21231 #### 38473-6 #### [facility] ([id number]) [facility], [address] [place] [address] Urea nitrogen [Mass/Vol] 30 mg/dL High 5-27 [facility] Comment on above: Performed By: #### B ALCON, CBCA, 1987-08, #### [facility] ([id number]) [address] [place] [address] 90842 #### 42141-1 #### [facility] ([id number]) [address] [place] [address], [address] [place] [address] CBC AND AUTO DIFFon 04-19-20 23 ABSOLUTE BASOPHIL 0.1 X10E9/L Normal 0.0-0.2 [facility] Comment on above: Performed By: #### B ALCON, CBCA, 1987-08, 21568-7 #### [facility] ([id number]) [address] [place] [address] 17828 #### 00414-9 #### [facility] ([id number]) [facility], [address] [place] [address] ABSOLUTE NEUTROPHIL 8.8 X10E9/L High 1.5-6.6 [facility] Comment on above: Performed By: #### B ALCON, CBCA, 1987-08, 42033-2 #### [facility] ([id number]) [address] [place] [address] 24081 #### 43482-1 #### [facility] ([id number]) [address] [facility], [address] [place] [address] Basophils/100 WBC (Bld) 0.5 % Normal [facility] Comment on above: Performed By: #### B MP, CBCA, 1987-08, 77509-7 #### [facility] ([id number]) [address] [place] [address] 48104 #### 67964-3 #### [facility] ([id number]) [address] [facility], [address] [place] [address] Eosinophils (Bld) [#/Vol] 0.3 10*3/uL Normal 0.0-0.4 [facility] Comment on above: Performed By: #### B ALCON, CBCA, 1987-08, 06095-5 #### [facility] ([id number]) [address] [place] [address] 32245 #### 74046-3 #### [facility] ([id number]) [facility], [address] [address] Eosinophils/100 WBC (Bld) 2.6 % Normal [facility] Comment on above: Performed By: #### B ALCON, CBCA, 1987-08, #### [facility] ([id number]) [address] [place] [address] 78994 #### 82223-5 #### [facility] ([id number]) [address] [facility], [address] [place] [address] Erythrocyte distribution width (RBC) [Ratio] 15.5 % High 11.5-15.0 [facility] Comment on above: Performed By: #### B MP, CBCA, 73092-2 #### [facility] ([id number]) [address] [place] [address] 22034 #### 57692-8 #### [facility] ([id number]) [address], [address] [place] [address] Hematocrit (Bld) [Volume fraction] 36.8 % Low 39-49 [facility] Comment on above: Performed By: #### B ALCON, CBCA, 1987-08, 98595-3 #### [facility] ([id number]) [address] [place] [address] 01730 #### 91848-8 #### [facility] ([id number]) [address] [facility], [address] [place] [address] Hemoglobin (Bld) [Mass/Vol] 12.0 g/dL Low 13.0-17.0 [facility] Comment on above: Performed By: #### B ALCON, CBCA, 1987-08, 73194-5 #### [facility] ([id number]) 27 [place] [address] 83521 #### 78187-2 #### [facility] ([id number]) [address], [address] [place] [address] Lymphocytes (Bld) [#/Vol] 1.9 10*3/uL Normal 1.0-3.5 [facility] Comment on above: Performed By: #### Laura RONDON, CBCA, 1987-08, #### [facility] ([id number]) [address] [place] [address] 84684 #### [id number] #### [facility] ([id number]) [address], [address] [place] [address] Lymphocytes/100 WBC (Bld) 15.1 % Normal [facility] Comment on above: Performed By: #### Laura MP, CBCA, 1987-08, #### [facility] ([id number]) [address] [place] [address] 33222 #### [id number] #### [facility] ([id number]) [address] [facility], [address] [place] [address] MCH (RBC) [Entitic mass] 28.2 pg Normal 27-34 [facility] Comment on above: Performed By: #### Laura RONDON CBCA, 1987-08, 59801-4 #### [facility] ([id number]) [address] [place] [address] 30327 #### 11225-8 #### [facility] ([id number]) [address] [place] [address], [address] [place] [address] MCHC (RBC) [Mass/Vol] 32.7 g/dL Normal 32-36 [facility] Comment on above: Performed By: #### Laura RONDON CBCA, 1987-08, 40203-6 #### [facility] ([id number]) [address] [place] [address] 38494 #### 18050-0 #### [facility] ([id number]) [address] [facility], [address] [place] [address] MCV (RBC) [Entitic vol] 86 fL Normal 80-100 [facility] Comment on above: Performed By: #### Laura RONDON CBCA, 1987-08, 50549-6 #### [facility] ([id number]) [address] [place] [address] 27504 #### 71309-2 #### [facility] ([id number]) [address] [facility], [address] [place] [address] Monocytes (Bld) [#/Vol] 1.4 10*3/uL High 0-0.9 [facility] Comment on above: Performed By: #### Laura RONDON CBCA, 1987-08, 69307-0 #### [facility] ([id number]) [address] [place] [address] 77091 #### 83144-3 #### [facility] ([id number]) [address] [facility], [address] [place] [address] Monocytes/100 WBC (Bld) 11.2 % Normal [facility] Comment on above: Performed By: #### Laura RONDON, CBCA, 1987-08, 27913-3 #### [facility] ([id number]) [address] [place] [address] 79151 #### 35689-8 #### [facility] ([id number]) [address] [facility], [address] [place] [address] Neutrophils/100 WBC (Bld) 70.6 % Normal [facility] Comment on above: Performed By: #### Laura RONDON, CBCA, 1987-08, 47512-2 #### [facility] ([id number]) [address] [place] [address] 46104 #### 08913-5 #### [facility] ([id number]) [address] [facility], [address] [place] [address] Platelet mean volume (Bld) [Entitic vol] 7.6 fL Normal 7-12 [facility] Comment on above: Performed By: #### Laura RONDON, CBCA, 1987-08, 80920-3 #### [facility] ([id number]) [address] [place] [address] 03441 #### 69259-7 #### [facility] ([id number]) [address] [facility], [address] [place] [address] Platelets (Bld) [#/Vol] 325 10*3/uL Normal 150-450 [facility] Comment on above: Performed By: #### Laura RONDON, CBCA, 1987-08, 73592-3 #### [facility] ([id number]) [address] [place] [address] 73772 #### 00897-5 #### [facility] ([id number]) [address] [place] [address] RBC COUNT 4.27 X10E12/L Normal 4.10-5.70 [facility] Comment on above: Performed By: #### B ALCON, CBCA, 1987-08, 79138-2 #### [facility] ([id number]) [address] [place] [address] 51505 #### 12129-8 #### [facility] ([id number]) [address] [facility], [address] [place] [address] WBC (Bld) [#/Vol] 12.5 10*3/uL High 4.0-11.0 [facility] Comment on above: Performed By: #### B ALCON, CBCA, 1987-08, 46813-6 #### [facility] ([id number]) [address] [place] [address] 85502 #### 00910-9 #### [facility] ([id number]) [address] [facility], [address] [place] [address] CRP [Mass/Vol]on 04-19-2023 C REACTIVE PROTEIN 7.8 mg/dL High 0.000-0.744 [facility] Comment on above: Performed By: #### B MP, CBCA, 1987-08, 01105-4 #### [facility] ([id number]) [address] [place] [address] 54563 #### 20009-9 #### [facility] ([id number]) [address] [place] [address] ESR Photometric method (Bld) [Velocity]on 04-19-2023 ESR, ERYTHROCYTE SEDIMENTATION RATE 115 mm/h High 0-20 [facility] Comment on above: Performed By: #### B ALCON CBCA, 1987-08, 85673-3 #### [facility] ([id number]) [address] [place] [address] 02311 #### 19563-3 #### [facility] ([id number]) [address] [place] [address], [address] [place] [address] Natriuretic peptide.B prohor adrianne N-Terminal [Mass/Vol]on 04-19-2023 NT Pro BNP See Below Normal [facility] Comment on above: Result Comment: NOTE TEST RESULT FLAG UNIT REF.RANGE --- PRO B Natr Peptide 587 H pg/mL <125 Test Performed By: [facility] [address] [place] [address] Control Systems Drafting Officer: Tyler Valle III, M.D. CLIA #[id number] Performed By: #### B ALCON CBCA, 1987-08, 37879-5 #### [facility] ([id number]) [address] [place] [address] 15779 #### 02018-0 #### [facility] ([id number]) [address] [place] [address], [address] [place] [address] Basic Metabolic Profon 02-27 Anion gap [Moles/Vol] 11 mmol/L Normal -17 [facility] Comment on above: Performed By: #### S ED, CRP, BMP, CDP #### [facility] [address] [place] [address] Car Worker: aJmeson Aaron MD BUN/CRE Ratio 16 Normal - [facility] Comment on above: Performed By: #### S ED, CRP, BMP, CDP #### [facility] [address] [place], [place] [address] Car Worker: Jameson Aaron MD Calcium [Mass/Vol] 9.4 mg/dL Normal 8.6-10.4 [facility] Comment on above: Performed By: #### S ED, CRP, BMP, CDP #### [facility] [address] [place], [place] [id number] Car Worker: Jameson Araon MD Chloride [Moles/Vol] 98 mmol/L Normal 98-107 [facility] Comment on above: Performed By: #### S ED, CRP, BMP, CDP #### [facility] [address] [place] [address] [place], [place] [address] Car Worker: Jameson Aaron MD CO2 [Moles/Vol] 18 mmol/L Low 20-31 [facility] Comment on above: Performed By: #### S ED, CRP, BMP, CDP #### [facility] [address] [place] [address] [place], [place] [address] Car Worker: Jameson Aaron MD Creatinine [Mass/Vol] 2.7 mg/dL High 0.7-1.2 [facility] Comment on above: Performed By: #### S ED, CRP, BMP, CDP #### [facility] [address] [place] [address] [address] [phone] Car Worker: Jameson Aaron MD GFR/1.73 sq M.predicted among non-blacks MDRD (S/P/Bld) [Vol rate/Area] 26 mL/min/{1.73_m2} Low >60 [facility] Comment on above: Result Comment: These [...] CDP #### [facility] [address] [place] [address] [place] [address] Car Worker: Jameson Aaron MD Glucose [Mass/Vol] 268 mg/dL High 70-99 [facility] Comment on above: Performed By: #### S ED, CRP, BMP, CDP #### [facility] [address] [place] [address] [place] [address] Car Worker: Jameson Aaron MD Potassium [Moles/Vol] 5.2 mmol/L Normal 3.7-5.3 [facility] Comment on above: Performed By: #### S ED, CRP, BMP, CDP #### [address] [place] [address] Car Worker: Jameson Aaron MD Sodium [Moles/Vol] 127 mmol/L Low 135-144 [facility] Comment on above: Performed By: #### S ED, CRP, BMP, CDP #### [address] [place] [address] Car Worker: Jameson Aaron MD Urea nitrogen [Mass/Vol] 44 mg/dL High 8-23 [facility] Comment on above: Performed By: #### S ED, CRP, BMP, CDP #### [address] [place] [address] Car Worker: Jameson Aaron MD C-Reactive Proteinon 023 CRP [Mass/Vol] 131.1 mg/L High 0.0-5.0 [facility] Comment on above: Performed By: #### S ED, CRP, BMP, CDP #### [address] [place] [address] Car Worker: Jameson Aaron MD CBC with Diffon 02-27-2023 Abs. Basophil 0.06 k/uL Normal 0.00-0.20 [facility] Comment on above: Performed By: #### S ED, CRP, BMP, CDP #### [facility] [address] [place] [address] [place] [address] Car Worker: Jameson Aaron MD Abs.Imm.Granulocyt e 0.11 k/uL Normal 0.00-0.30 [facility] Comment on above: Performed By: #### S ED, CRP, BMP, CDP #### [address] [place] [address] Car Worker: Jameson Aaron MD Abs.Neutrophil (Seg) 6.83 k/uL Normal 1.50-8.10 [facility] Comment on above: Performed By: #### S ED, CRP, BMP, CDP #### [address] [place] [phone] Car Worker: Jameson Aaron MD Basophils/100 WBC (Bld) 1 % Normal 0-2 [facility] Comment on above: Performed By: #### S ED, CRP, BMP, CDP #### [address] [place] 4051683 Car Worker: Jameson Aaron MD Eosinophils (Bld) [#/Vol] 0.22 10*3/uL Normal 0.00-0.44 [facility] Comment on above: Performed By: #### S ED, CRP, BMP, CDP #### [address] [place], [facility]83 Car Worker: Jameson Aaron MD Eosinophils/100 WBC (Bld) 2 % Normal 1-4 [facility] Comment on above: Performed By: #### S ED, CRP, BMP, CDP #### [address] [place] [address] Car Worker: Jameson Aaron MD Erythrocyte distribution width (RBC) [Ratio] 14.6 % High 11.8-14.4 [facility] Comment on above: Performed By: #### S ED, CRP, BMP, CDP #### [facility] [address] [place] [address] Dr[place], [place] [phone] Car Worker: Jameson Aaron MD Hematocrit (Bld) [Volume fraction] 41.9 % Normal 40.7-50.3 [facility] Comment on above: Performed By: #### S ED, CRP, BMP, CDP #### [facility] [address] [place] [address] Dr[place], [facility]83 Car Worker: Jameson Aaron MD Hemoglobin (Bld) [Mass/Vol] 13.2 g/dL Normal 13.0-17.0 [facility] Comment on above: Performed By: #### S ED, CRP, BMP, CDP #### [address] [place], [place] [phone] Car Worker: Jameson Aaron MD Immature granulocytes/100 WBC (Bld) 1 % High 0 [facility] Comment on above: Performed By: #### S ED, CRP, BMP, CDP #### [address] [place], [place] [phone] Car Worker: Jameson Aaron MD Lymphocytes (Bld) [#/Vol] 1.83 10*3/uL Normal 1.10-3.70 [facility] Comment on above: Performed By: #### S ED, CRP, BMP, CDP #### [address] [place], [facility]83 Car Worker: Jameson Aaron MD Lymphocytes/100 WBC (Bld) 18 % Low 24-43 [facility] Comment on above: Performed By: #### S ED, CRP, BMP, CDP #### [address] [place] [address] Car Worker: Jameson Aaron MD MCH (RBC) [Entitic mass] 28.2 pg Normal 25.2-33.5 [facility] Comment on above: Performed By: #### S ED, CRP, BMP, CDP #### [facility] [address] [place], [facility]83 Car Worker: Jameson Aaron MD MCHC (RBC) [Mass/Vol] 31.5 g/dL Normal 28.4-34.8 [facility] Comment on above: Performed By: #### S ED, CRP, BMP, CDP #### [address] [place], [facility]83 Car Worker: Jameson Aaron MD MCV (RBC) [Entitic vol] 89.5 fL Normal 82.6-102.9 [facility] Comment on above: Performed By: #### S ED, CRP, BMP, CDP #### [address] [place] [address] Car Worker: Jameson Aaron MD Monocytes (Bld) [#/Vol] 1.42 10*3/uL High 0.10-1.20 [facility] Comment on above: Performed By: #### S ED, CRP, BMP, CDP #### [address] [place], [facility]83 Car Worker: Jameson Aaron MD Monocytes/100 WBC (Bld) 14 % High 3-12 [facility] Comment on above: Performed By: #### S ED, CRP, BMP, CDP #### [address] [place], [place] [address] Car Worker: Jameson Aaron MD Neutrophil (Seg) 64 % Normal 36-65 [facility] Comment on above: Performed By: #### S ED, CRP, BMP, CDP #### [address] [place], [place] 9777883 Car Worker: Jameson Aaron MD NRBC Automated 0.0 per 100 WBC Normal 0.0 [facility] Comment on above: Performed By: #### S ED, CRP, BMP, CDP #### [facility] [address] [place] [address] Dr[place], [place] 7084983 Car Worker: Jameson Aaron MD Platelet mean volume (Bld) [Entitic vol] 9.4 fL Normal 8.1-13.5 [facility] Comment on above: Performed By: #### S ED, CRP, BMP, CDP #### [address] [place] [address] Car Worker: Jameson Aaron MD Platelets (Bld) [#/Vol] 266 10*3/uL Normal 138-453 [facility] Comment on above: Performed By: #### S ED, CRP, BMP, CDP #### [address] [place], [place] [phone] Car Worker: Jameson Aaron MD RBC (Bld) [#/Vol] 4.68 10*6/uL Normal 4.21-5.77 [facility] Comment on above: Performed By: #### S ED, CRP, BMP, CDP #### [address] [place], [place] 6642683 Car Worker: Jameson Aaron MD WBC (Bld) [#/Vol] 10.5 10*3/uL Normal 3.5-11.3 [facility] Comment on above: Performed By: #### S ED, CRP, BMP, CDP #### [address] [place], [facility]83 Car Worker: Jameson Aaron MD Sedimentation Rateon 023 Sedimentation Rate 114 mm/Hr High 0-20 [facility] Comment on above: Performed By: #### S ED, CRP, BMP, CDP #### [address] [place], [place] 6894383 Car Worker: Jameson Aaron MD FUNGAL CULTUREon 09-21-2022 Fungus (Mycology) Culture Final report Abnormal [facility] Comment on above: Performed By: #### C XFUN ####[facility] [address] [place] [address]Dr. Eddie Lerner Fungus Stain Final report Normal [facility] Comment on above: Performed By: #### C XFUN ####[facility] [address] [place] [id number]. Eddie Lerner Result 1 Comment Normal [facility] Comment on above: Result Comment: ANNEMARIE/ Calcofluor preparation: no fungus observed. Performed By: #### C XFUN ####[facility] [address] [place] [address]Dr. Eddie Lerner Result 1 Rosy albicans Abnormal [facility] Comment on above: Performed By: #### C XFUN ####[facility] [address] [place], [place] [address]Dr. Eddie Lerner CULTURE OTHERon 08-23-2022 CULTURE OTHER Isolate 1 Enterococcus faecalis Light growth of ORGANISM 1 Enterococcus faecalis ANTIBIOTIC M.I.C RX STATUS Beta-Lactamase Neg NEG F Benzylpenicillin 0.5 S F Ampicillin <=2 S F Gentamicin High Level (synergy) SYN-R R F Streptomycin High Level (synergy) SYN-S S F Quinupristin/Dalfopristin 4 R F Linezolid 1 S F Vancomycin 1 S F Normal [facility] Comment on above: Performed By: #### O THCX ####[facility] [address] [place], [place] [address]Dr. Eddie Lerner ACID FAST SMEAR AND CXon Acid Fast Smear Negative Normal [facility] Comment on above: Performed By: #### A FB ####[facility] [address] [place], [place] [address]Dr. 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 Eddie Lerner BNPon 08-20-2022 Natriuretic peptide B (Bld) [Mass/Vol] 648.0 pg/mL Normal <=900.0 [facility] Comment on above: Performed By: #### A 1C #### [facility] [address] [place] [address] [address] Eddie Lerner CULTURE ANAEROBICon 08-21-19 23 CULTURE ANAEROBIC Culture Observations : NO GROWTH OF ANAEROBES AT 72 HOURS. Normal [facility] Comment on above: Performed By: #### A NACX ####[facility] [address] [place] [address]Dr. Eddie Lerner GLYCOHEMOGLOBIN A1Con 2022 ADA RECOMMENDATION SEE BELOW Normal [facility] Comment on above: Result Comment: ADA RECOMMENDED LIMIT 4.0 - 6.0 ADA THERAPEUTIC TARGET < 7.0 ACTION SUGGESTED > 7.0 Performed By: #### R ENAL, LIPID, LIVER, TSH #### [facility] [address] [place] [address] [address] Eddie Lerner Glucose [Mass/Vol] 235 mg/dL Normal [facility] Comment on above: Performed By: #### R ENAL, LIPID, LIVER, TSH #### [facility] [address] [place] [address] [address] Eddie Lerner HbA1c (Bld) [Mass fraction] 9.8 % Critically high 4.5-6.2 [facility] Comment on above: Performed By: #### R ENAL, LIPID, LIVER, TSH #### [facility] [address] [place] [address] [address] Eddie Lerner GRAM STAINon 08-20-2022 COMMENTS NO ORGANISMS OBSERVED Normal [facility] Comment on above: Performed By: #### G STAIN ####[facility] [address] [place] [address]DrVaishali Lerner DIPHTHEROIDS Normal [facility] Comment on above: Performed By: #### G STAIN ####[facility] [address] [place] [address]DrVaishali Lerner EPITHELIALS Normal [facility] Comment on above: Performed By: #### G STAIN ####[facility] [address] [place] [address]DrVaishali Lerner FUNGAL ELEMENTS Normal [facility] Comment on above: Performed By: #### G STAIN ####[facility] [address] [place] [phone]. Eddie Lerner GRAM NEG BACILLI Normal [facility] Comment on above: Performed By: #### G STAIN ####[facility] [address] [place] [phone]. Eddie Lerner GRAM NEG DIPPLOCOCCI Normal [facility] Comment on above: Performed By: #### G STAIN ####[facility] [address] [place] [address]Dr. Eddie Lerner GRAM POS BACILLI Normal [facility] Comment on above: Performed By: #### G STAIN ####[facility] [address] [place] [address]Dr. Eddie Lerner GRAM POSITIVE COCCI Normal [facility] Comment on above: Performed By: #### G STAIN ####[facility] [address] [place] [address]Dr. Eddie Lerner GRAM STAIN SOURCE Lt Foot Bone Normal [facility] Comment on above: Performed By: #### G STAIN ####[facility] [address] [place] [address]Dr. Eddie Lerner GS_DIPTH Normal [facility] Comment on above: Performed By: #### G STAIN ####[facility] [address] [place] [phone]. Eddie Lerner WBC RARE Normal [facility] Comment on above: Performed By: #### G STAIN ####[facility] [address] [place] [phone]. Eddie Lerner LIPID PROFILEon 08-20-2022 CHOL-HDL RATIO NORM SEE BELOW Normal [facility] Comment on above: Result Comment: 3.3 - 4.4 LOW RISK 4.4 - 7.1 AVERAGE RISK 7.1 - 11.0 MODERATE RISK >11.0 HIGH RISK Performed By: #### A 1C #### [facility] [address] [place] [address] [address] Eddie Lerner Cholesterol [Mass/Vol] 137 mg/dL Normal <=200 [facility] Comment on above: Performed By: #### A 1C #### [facility] [address] [place], [place] [address] Dr. Eddie Lerner Cholesterol in HDL [Mass/Vol] 54 mg/dL Normal 40-60 [facility] Comment on above: Performed By: #### A 1C #### [facility] [address] [place], [place] [address] Dr. Eddie Lerner Cholesterol in LDL [Mass/Vol] 63.2 mg/dL Normal [facility] Comment on above: Performed By: #### A 1C #### [facility] [address] [place] [address] [address] Eddie Lerner Cholesterol.total/ Cholesterol in HDL [Mass ratio] 2.5 {ratio} Normal [facility] Comment on above: Performed By: #### A 1C #### [facility] [address] [place] [address] [address] Eddie Lerner HDL NORMAL > or = 60 mg/dl - LO W CARDIOVASCULAR RISK <40 mg/dl - HIGH CARDIOVASCULAR RISK Normal [facility] Comment on above: Performed By: #### A 1C #### [facility] [address] [place] [address] [address] Eddie Lerner LDL CALC NORMAL SEE BELOW Normal [facility] Comment on above: Result Comment: <100 mg/dl OPTIMAL 100 - 129 mg/dl NEAR OR ABOVE OPTIMAL 130 - 159 mg/dl BORDERLINE HIGH 160 - 189 mg/dl HIGH >190 mg/dl VERY HIGH Performed By: #### A 1C #### [facility] [address] [place] [address] [address] Eddie Lerner Triglyceride [Mass/Vol] 99 mg/dL Normal <=150 [facility] Comment on above: Performed By: #### A 1C #### [facility] [address] [place] [address] [address] Eddie Lerner VLDL CALC 19.8 mg/dL Normal [facility] Comment on above: Performed By: #### A 1C #### [facility] [address] [place] [address] [address] Eddie Lerner LIVER PROFILEon 08-20-2022 Albumin [Mass/Vol] 2.8 g/dL Critically low 3.4-5.0 [facility] Comment on above: Performed By: #### A 1C #### [facility] [address] [place] [address] Dr. Eddie Lerner Albumin/Globulin [Mass ratio] 0.6 {ratio} Normal [facility] Comment on above: Performed By: #### A 1C #### [facility] [address] [place] [address] Dr. Eddie Lerner ALP [Catalytic activity/Vol] 87 U/L Normal 46-116 [facility] Comment on above: Performed By: #### A 1C #### [facility] [address] [place] [address] Dr. Eddie Lerner ALT [Catalytic activity/Vol] 49 U/L Normal 16-63 [facility] Comment on above: Performed By: #### A 1C #### [facility] [address] [place] [address] Dr. Eddie Lerner AST [Catalytic activity/Vol] 36 U/L Normal 15-37 [facility] Comment on above: Performed By: #### A 1C #### [facility] [address] [place] [address] Dr. Eddie Lerner BILI, CONJUGATED 0.1 mg/dL Normal 0.0-0.[address] [facility] Comment on above: Performed By: #### A 1C #### [facility] [address] [place] [address] Dr. Eddie Lerner Bilirubin [Mass/Vol] 0.4 mg/dL Normal 0.2-1.0 [facility] Comment on above: Performed By: #### A 1C #### [facility] [address] [place] [address] Dr. Eddie Lerner Globulin (S) [Mass/Vol] 4.4 g/dL Normal [facility] Comment on above: Performed By: #### A 1C #### [facility] [address] [place] [address] Dr. Eddie Lerner Protein [Mass/Vol] 7.2 g/dL Normal 6.4-8.2 [facility] Comment on above: Performed By: #### A 1C #### [facility] [address] [place] [address] [address] Eddie Lerner POINT OF CARE GLUCOSEon - Glucose [Mass/Vol] 107 mg/dL Critically high 74-106 [facility] Comment on above: Performed By: #### P OCGLUC #### [facility] [address] [address] [address] Eddie Lerner Glucose [Mass/Vol] 108 mg/dL Critically high 74-106 [facility] Comment on above: Performed By: #### P OCGLUC ####[facility] [address] [address]Dr. Eddie eLrner TSHon 08-20-2022 TSH 2.247 uIU/mL Normal 0.358-3.740 [facility] Comment on above: Performed By: #### A 1C #### [facility] [address] [address] [address] Eddie Lerner CBC AUTO DIFFon 08-15-2022 BASO # 0.0 103/ul Normal 0.0-0.1 [facility] Comment on above: Performed By: #### C BC ####[facility] [address] [address]DrVaishali Lerner Basophils/100 WBC (Bld) 0.4 % Normal 0.2-2.0 [facility] Comment on above: Performed By: #### C BC ####[facility] [address] [address]DrVaishali Lerner EO # 0.2 103/ul Normal 0.0-0.7 [facility] Comment on above: Performed By: #### C BC ####[facility] [address] [address]DrVaishali Lerner Eosinophils/100 WBC (Bld) 2.0 % Normal 0.9-7.0 [facility] Comment on above: Performed By: #### C BC ####[facility] [address] [address]DrVaishali Lerner Erythrocyte distribution width (RBC) [Ratio] 14.5 % Normal 11.0-15.0 [facility] Comment on above: Performed By: #### C BC ####[facility] [address] [address]Dr. Eddie Lerner Hematocrit (Bld) [Volume fraction] 40.5 % Critically low 42.0-54.0 [facility] Comment on above: Performed By: #### C BC ####[facility] [address] [address]DrVaishali Lerner Hemoglobin (Bld) [Mass/Vol] 13.1 g/dL Critically low 14.0-18.0 [facility] Comment on above: Performed By: #### C BC ####[facility] [address] [place], [place] [address]DrVaishali Lerner IG # 0.12 10e3/ul Critically high 0.00-0.03 [facility] Comment on above: Performed By: #### C BC ####[facility] [address] [place], [place] [address]DrVaishali Lerner IG % 1.2 % Critically high 0.0-0.5 [facility] Comment on above: Performed By: #### C BC ####[facility] [address] [place], [place] [address]DrVaishali Lerner LYMPH # 1.4 103/ul Normal 1.2-3.8 [facility] Comment on above: Performed By: #### C BC ####[facility] [address] [place], [place] [address]DrVaishali Lerner Lymphocytes/100 WBC (Bld) 13.6 % Critically low 20.5-60.0 [facility] Comment on above: Performed By: #### C BC ####[facility] [address] [place], [place] [address]DrVaishali Lerner MANUAL DIFF REQ NO Normal [facility] Comment on above: Performed By: #### C BC ####[facility] [address] [place], [place] [address]DrVaishali Lerner MCH (RBC) [Entitic mass] 29.8 pg Normal 25.9-34.0 [facility] Comment on above: Performed By: #### C BC ####[facility] [address] [address]Dr. Eddie Lerner MCHC (RBC) [Mass/Vol] 32.3 g/dL Normal 29.9-35.2 [facility] Comment on above: Performed By: #### C BC ####[facility] [address] [address]DrVaishali Lerner MCV (RBC) [Entitic vol] 92.0 fL Normal 80.0-94.0 [facility] Comment on above: Performed By: #### C BC ####[facility] [address] [place], [place] [address]DrVaishali Lerner MONO # 0.5 103/ul Normal 0.3-0.8 [facility] Comment on above: Performed By: #### C BC ####[facility] [address] [place], [place] [address]Dr. Eddie Lerner Monocytes/100 WBC (Bld) 4.8 % Normal 1.7-12.0 [facility] Comment on above: Performed By: #### C BC ####[facility] [address] [place], [place] [address]DrVaishali Lerner NEUT # 8.1 103/ul Critically high 1.4-6.5 [facility] Comment on above: Performed By: #### C BC ####[facility] [address] [place], [place] [address]Dr. Eddie Lerner Neutrophils/100 WBC (Bld) 78.0 % Critically high 43.0-75.0 [facility] Comment on above: Performed By: #### C BC ####[facility] [address] [place], [place] [address]DrVaishali Lerner Platelet mean volume (Bld) [Entitic vol] 8.6 fL Critically low 9.5-13.5 [facility] Comment on above: Performed By: #### C BC ####[facility] [address] [place], [place] [address]Dr. Eddie Lerner PLT 240 103/ul Normal 150-450 [facility] Comment on above: Performed By: #### C BC ####[facility] [address] [id number] Lerner RBC 4.40 106/ul Critically low 4.70-6.10 [facility] Comment on above: Performed By: #### C BC ####[facility] [address] [id number] Lerner WBC 10.3 103/ul Normal 4.0-11.0 [facility] Comment on above: Performed By: #### C BC ####[facility] [address] [id number] Lerner CRPon 08-15-2022 CRP [Mass/Vol] mg/L Normal <=1.0 [facility] Comment on above: Performed By: #### A 1C #### [facility] [address] [address] [address] Eddie Lerner PROF CHEM 8 (BAS METB)on Anion gap [Moles/Vol] 14.4 mmol/L Normal [facility] Comment on above: Performed By: #### A 1C #### [facility] [address] [address] [address] Eddie Lerner Calcium [Mass/Vol] 9.2 mg/dL Normal 8.5-10.1 [facility] Comment on above: Performed By: #### A 1C #### [facility] [address] [address] [address] Eddie Lerner Chloride [Moles/Vol] 101 mmol/L Normal 98-107 [facility] Comment on above: Performed By: #### A 1C #### [facility] [address] [address] [address] Eddie Lerner CO2 [Moles/Vol] 25.2 mmol/L Normal 21.0-32.0 [facility] Comment on above: Performed By: #### A 1C #### [facility] [address] [address] [address] Eddie Lerner Creatinine [Mass/Vol] 3.07 mg/dL Critically high 0.70-1.30 [facility] Comment on above: Performed By: #### A 1C #### [facility] [address] [address] [address] Eddie Lerner EGFR-AF VI[place]ESE 25 mL/min/1.73m2 Critically low >=60 [facility] Comment on above: Performed By: #### A 1C #### [facility] [address] [address] [address] Eddie Lerner EGFR-NON AF VI[place]ESE 21 mL/min/1.73m2 Critically low >=60 [facility] Comment on above: Performed By: #### A 1C #### [facility] [address] [place] [address] Dr. Eddie Lerner Glucose [Mass/Vol] 415 mg/dL Critically high 74-106 T [facility] Comment on above: Performed By: #### A 1C #### [facility] [address] [address] [address] Eddie Lerner Potassium [Moles/Vol] 5.6 mmol/L Critically high 3.5-5.1 [facility] Comment on above: Performed By: #### A 1C #### [facility] [address] [place] [address] Dr. Eddie Lerner Sodium [Moles/Vol] 135 mmol/L Critically low 136-145 [facility] Comment on above: Performed By: #### A 1C #### [facility] [address] [place] [address] Dr. Eddie Lerner Urea nitrogen [Mass/Vol] 34.0 mg/dL Critically high 7.0-18.0 [facility] Comment on above: Performed By: #### A 1C #### [facility] [address] [place] [address] Dr. Eddie Lerner Urea nitrogen/Creatinin e [Mass ratio] 11.1 mg/mg Normal [facility] Comment on above: Performed By: #### A 1C #### [facility] [address] [place] [address] Dr. Eddie Lerner SED RATE WESTERGRENon 2022 SED RATE 59 mm/hr Critically high <=20 [facility] Comment on above: Performed By: #### S EDR ####[facility] [address] [address]Dr. Eddie Lerner BNPon 06-06-2022 Natriuretic peptide B (Bld) [Mass/Vol] 1342.0 pg/mL Critically high <=900.0 [facility] Comment on above: Performed By: #### B REFINERY SUPERINTENDENT ####[facility] [address] [address]DrVaishali Lerner CBC AUTO DIFFon 06-06-2022 BASO # 0.1 103/ul Normal 0.0-0.1 [facility] Comment on above: Performed By: #### A 1C #### [facility] [address] [address] [address] Eddie Lerner Basophils/100 WBC (Bld) 0.6 % Normal 0.2-2.0 [facility] Comment on above: Performed By: #### A 1C #### [facility] [address] [address] [address] Eddie Lerner EO # 0.2 103/ul Normal 0.0-0.7 [facility] Comment on above: Performed By: #### A 1C #### [facility] [address] [address] [address] Eddie Lerner Eosinophils/100 WBC (Bld) 1.8 % Normal 0.9-7.0 [facility] Comment on above: Performed By: #### A 1C #### [facility] [address] [address] [address] Eddie Lerner Erythrocyte distribution width (RBC) [Ratio] 15.2 % Critically high 11.0-15.0 [facility] Comment on above: Performed By: #### A 1C #### [facility] [address] [address] [address] Eddie Lerner Hematocrit (Bld) [Volume fraction] 39.0 % Critically low 42.0-54.0 [facility] Comment on above: Performed By: #### A 1C #### [facility] [address] [address] [address] Eddie Lerner Hemoglobin (Bld) [Mass/Vol] 12.4 g/dL Critically low 14.0-18.0 [facility] Comment on above: Performed By: #### A 1C #### [facility] [address] [address] [address] Eddie Lerner IG # 0.21 10e3/ul Critically high 0.00-0.03 [facility] Comment on above: Performed By: #### A 1C #### [facility] [address] [address] [address] Eddie Lerner IG % 1.6 % Critically high 0.0-0.5 [facility] Comment on above: Performed By: #### A 1C #### [facility] [address] [address] [address] Eddie Lerner LYMPH # 1.9 103/ul Normal 1.2-3.8 [facility] Comment on above: Performed By: #### A 1C #### [facility] [address] [address] [address] Eddie Lerner Lymphocytes/100 WBC (Bld) 13.8 % Critically low 20.5-60.0 [facility] Comment on above: Performed By: #### A 1C #### [facility] [address] [address] [address] Eddie Lerner MANUAL DIFF REQ NO Normal [facility] Comment on above: Performed By: #### A 1C #### [facility] [address] [address] [address] Eddie Lerner MCH (RBC) [Entitic mass] 27.8 pg Normal 25.9-34.0 [facility] Comment on above: Performed By: #### A 1C #### [facility] [address] [address] [address] Eddie Lerner MCHC (RBC) [Mass/Vol] 31.8 g/dL Normal 29.9-35.2 [facility] Comment on above: Performed By: #### A 1C #### [facility] [address] [address] [address] Eddie Lerner MCV (RBC) [Entitic vol] 87.4 fL Normal 80.0-94.0 [facility] Comment on above: Performed By: #### A 1C #### [facility] [address] [address] [address] Eddie Lerner MONO # 0.8 103/ul Normal 0.3-0.8 [facility] Comment on above: Performed By: #### A 1C #### [facility] [address] [address] [address] Eddie Lerner Monocytes/100 WBC (Bld) 5.9 % Normal 1.7-12.0 [facility] Comment on above: Performed By: #### A 1C #### [facility] [address] [address] [address] Eddie Lerner NEUT # 10.3 103/ul Critically high 1.4-6.5 [facility] Comment on above: Performed By: #### A 1C #### [facility] [address] [address] [address] Eddie Lerner Neutrophils/100 WBC (Bld) 76.3 % Critically high 43.0-75.0 [facility] Comment on above: Performed By: #### A 1C #### [facility] [address] [address] [address] Eddie Lerner Platelet mean volume (Bld) [Entitic vol] 10.2 fL Normal 9.5-13.5 [facility] Comment on above: Performed By: #### A 1C #### [facility] [address] [place] [address] Dr. Eddie Lerner PLT 288 103/ul Normal 150-450 [facility] Comment on above: Performed By: #### A 1C #### [facility] [address] [address] [address] Eddie Lerner RBC 4.46 106/ul Critically low 4.70-6.10 [facility] Comment on above: Performed By: #### A 1C #### [facility] [address] [address] [address] Eddie Lerner WBC 13.5 103/ul Critically high 4.0-11.[address] [facility] Comment on above: Performed By: #### A 1C #### [facility] [address] [address] [address] Eddie Lerner GLYCOHEMOGLOBIN A1Con 2022 ADA RECOMMENDATION SEE BELOW Normal [facility] Comment on above: Result Comment: ADA RECOMMENDED LIMIT 4.0 - 6.0 ADA THERAPEUTIC TARGET < 7.0 ACTION SUGGESTED > 7.0 Performed By: #### A 1C #### [facility] [address] [address] [address] Eddie Lerner Glucose [Mass/Vol] 283 mg/dL Normal [facility] Comment on above: Performed By: #### A 1C #### [facility] [address] [place] [address] Dr. Eddie eLrner HbA1c (Bld) [Mass fraction] 11.5 % Critically high 4.5-6.2 [facility] Comment on above: Performed By: #### A 1C #### [facility] [address] [place] [address] Dr. Eddie Lerner LIPID PROFILEon 06-06-2022 CHOL-HDL RATIO NORM SEE BELOW Normal [facility] Comment on above: Result Comment: 3.3 - 4.4 LOW RISK 4.4 - 7.1 AVERAGE RISK 7.1 - 11.0 MODERATE RISK >11.0 HIGH RISK Performed By: #### R ENAL, LIPID, LIVER, TSH #### [facility] [address] [address] [address] Eddie Lerner Cholesterol [Mass/Vol] 152 mg/dL Normal <=200 [facility] Comment on above: Performed By: #### R ENAL, LIPID, LIVER, TSH #### [facility] [address] [address] [address] Eddie Lerner Cholesterol in HDL [Mass/Vol] 51 mg/dL Normal 40-60 [facility] Comment on above: Performed By: #### R ENAL, LIPID, LIVER, TSH #### [facility] [address] [address] [address] Eddie Lerner Cholesterol in LDL [Mass/Vol] 61.0 mg/dL Normal [facility] Comment on above: Performed By: #### R ENAL, LIPID, LIVER, TSH #### [facility] [address] [address] [address] Eddie Lerner Cholesterol.total/ Cholesterol in HDL [Mass ratio] 3.0 {ratio} Normal [facility] Comment on above: Performed By: #### R ENAL, LIPID, LIVER, TSH #### [facility] [address] [address] [address] Eddie Lerner HDL NORMAL > or = 60 mg/dl - LO W CARDIOVASCULAR RISK <40 mg/dl - HIGH CARDIOVASCULAR RISK Normal [facility] Comment on above: Performed By: #### R ENAL, LIPID, LIVER, TSH #### [facility] [address] [address] [address] Eddie Lerner LDL CALC NORMAL SEE BELOW Normal [facility] Comment on above: Result Comment: <100 mg/dl OPTIMAL 100 - 129 mg/dl NEAR OR ABOVE OPTIMAL 130 - 159 mg/dl BORDERLINE HIGH 160 - 189 mg/dl HIGH >190 mg/dl VERY HIGH Performed By: #### R ENAL, LIPID, LIVER, TSH #### [facility] [address] [address] [address] Eddie Lerner Triglyceride [Mass/Vol] 200 mg/dL Critically high <=150 [facility] Comment on above: Performed By: #### R ENAL, LIPID, LIVER, TSH #### [facility] [address] [address] [address] Eddie Lerner VLDL CALC 40.0 mg/dL Normal [facility] Comment on above: Performed By: #### R ENAL, LIPID, LIVER, TSH #### [facility] [address] [address] [address] Eddie Lerner LIVER PROFILEon 06-06-2022 Albumin [Mass/Vol] 2.6 g/dL Critically low 3.4-5.0 [facility] Comment on above: Performed By: #### R ENAL, LIPID, LIVER, TSH #### [facility] [address] [address] [address] Eddie Lerner Albumin/Globulin [Mass ratio] 0.6 {ratio} Normal [facility] Comment on above: Performed By: #### R ENAL, LIPID, LIVER, TSH #### [facility] [address] [address] [address] Eddie Lerner ALP [Catalytic activity/Vol] 120 U/L Critically high 46-116 [facility] Comment on above: Performed By: #### R ENAL, LIPID, LIVER, TSH #### [facility] [address] [address] [address] Eddie Lerner ALT [Catalytic activity/Vol] 22 U/L Normal 16-63 [facility] Comment on above: Performed By: #### R ENAL, LIPID, LIVER, TSH #### [facility] [address] [address] [address] Eddie Lerner AST [Catalytic activity/Vol] 15 U/L Normal 15-37 [facility] Comment on above: Performed By: #### R ENAL, LIPID, LIVER, TSH #### [facility] [address] [address] [address] Eddie Lerner BILI, CONJUGATED 0.1 mg/dL Normal 0.0-0.[address] [facility] Comment on above: Performed By: #### R ENAL, LIPID, LIVER, TSH #### [facility] [address] [address] [address] Eddie Lerner Bilirubin [Mass/Vol] 0.3 mg/dL Normal 0.2-1.0 [facility] Comment on above: Performed By: #### R ENAL, LIPID, LIVER, TSH #### [facility] [address] [address] [address] Eddie Lerner Globulin (S) [Mass/Vol] 4.7 g/dL Normal [facility] Comment on above: Performed By: #### R ENAL, LIPID, LIVER, TSH #### [facility] [address] [address] [address] Eddie Lerner Protein [Mass/Vol] 7.3 g/dL Normal 6.4-8.[address] [facility] Comment on above: Performed By: #### R ENAL, LIPID, LIVER, TSH #### [facility] [address] [address] [address] Eddie Lerner RENAL FUNCTION PANELon 06-06 Calcium [Mass/Vol] 9.0 mg/dL Normal 8.5-10.[address] [facility] Comment on above: Performed By: #### R ENAL, LIPID, LIVER, TSH #### [facility] [address] [address] [address] Eddie Lerner Chloride [Moles/Vol] 96 mmol/L Critically low 98-107 [facility] Comment on above: Performed By: #### R ENAL, LIPID, LIVER, TSH #### [facility] [address] [place] [address] Dr. Eddie Lerner CO2 [Moles/Vol] 21.8 mmol/L Normal 21.0-32.[address] [facility] Comment on above: Performed By: #### R ENAL, LIPID, LIVER, TSH #### [facility] [address] [place] [address] Dr. Eddie Lerner Creatinine [Mass/Vol] 2.38 mg/dL Critically high 0.70-1.30 [facility] Comment on above: Performed By: #### R ENAL, LIPID, LIVER, TSH #### [facility] [address] [place] [address] Dr. Eddie Lerner EGFR-AF VI[place]ESE 34 mL/min/1.73m2 Critically low >=60 [facility] Comment on above: Performed By: #### R ENAL, LIPID, LIVER, TSH #### [facility] [address] [place] [address] Dr. Eddie Lerner EGFR-NON AF VI[place]ESE 28 mL/min/1.73m2 Critically low >=60 [facility] Comment on above: Performed By: #### R ENAL, LIPID, LIVER, TSH #### [facility] [address] [address] [address] Eddie Lerner Glucose [Mass/Vol] 523 mg/dL Critically high 74-106 [facility] Comment on above: Performed By: #### R ENAL, LIPID, LIVER, TSH #### [facility] [address] [address] [address] Eddie Lerner Phosphate [Mass/Vol] 4.1 mg/dL Normal 2.6-4.7 [facility] Comment on above: Performed By: #### R ENAL, LIPID, LIVER, TSH #### [facility] [address] [place] [address] Dr. Eddie Lerner Potassium [Moles/Vol] 4.6 mmol/L Normal 3.5-5.1 [facility] Comment on above: Performed By: #### R ENAL, LIPID, LIVER, TSH #### [facility] [address] [place] [address] Dr. Eddie Lerner Sodium [Moles/Vol] 128 mmol/L Critically low 136-145 [facility] Comment on above: Performed By: #### R ENAL, LIPID, LIVER, TSH #### [facility] [address] [place] [address] Dr. Eddie Lerner Urea nitrogen [Mass/Vol] 28.0 mg/dL Critically high 7.0-18.0 [facility] Comment on above: Performed By: #### R ENAL, LIPID, LIVER, TSH #### [facility] [address] [place] [address] Dr. Eddie Lerner TSHon 06-06-2022 TSH 1.308 uIU/mL Normal 0.358-3.740 [facility] Comment on above: Performed By: #### R ENAL, LIPID, LIVER, TSH #### [facility] [address] [place] [address] Dr. Eddie Lerner UA RANDOMon 06-06-2022 Bilirubin Ql (U) Negative Normal NEGATIVE [facility] Comment on above: Performed By: #### U A #### [facility] [address] [place] [address] Dr. Eddie Lerner Clarity (U) CLEAR Normal CLEAR [facility] Comment on above: Performed By: #### U A #### [facility] [address] [place] [address] Dr. Eddie Lerner Color (U) LT. YELLOW Normal YELLOW [facility] Comment on above: Performed By: #### U A #### [facility] [address] [place] [address] Dr. Eddie Lerner Glucose Ql (U) >1000 Abnormal NEGATIVE [facility] Comment on above: Performed By: #### U A #### [facility] [address] [place] [address] Dr. Eddie Lerner Hemoglobin Ql (U) TRACE-INTACT Abnormal NEGATIVE [facility] Comment on above: Performed By: #### U A #### [facility] [address] [place] [address] Dr. Eddie Lerner Ketones Ql (U) Negative Normal NEGATIVE [facility] Comment on above: Performed By: #### U A #### [facility] [address] [place] [address] Dr. Eddie Lerner LEUKOCYTES Negative Normal NEGATIVE [facility] Comment on above: Performed By: #### U A #### [facility] [address] [place] [address] Dr. Eddie Lerner Nitrite Ql (U) Negative Normal NEGATIVE [facility] Comment on above: Performed By: #### U A #### [facility] [address] [place] [address] Dr. Eddie Lerner pH (U) 6.5 [pH] Normal 5-9 [facility] Comment on above: Performed By: #### U A #### [facility] [address] [place] [address] Dr. Eddie Lerner SPEC GRAVITY 1.010 Normal 1.005-<=1.025 [facility] Comment on above: Performed By: #### U A #### [facility] [address] [place] [address] Dr. Eddie Lerner UA PROTEIN 100 mg/dl Abnormal NEGATIVE/ TRACE [facility] Comment on above: Performed By: #### U A #### [facility] [address] [place] [address] Dr. Eddie Lerner Urobilinogen Qn (U) 0.2 {Chaya'U}/dL Normal 0.2 - 1.0 [facility] Comment on above: Performed By: #### U A #### [facility] [address] [place] [address] Dr. Eddie Lerner VITAMIN D 25 OHon 06-06-2022 VIT D 25-OH 13.9 ng/mL Normal [facility] Comment on above: Performed By: #### V ITAD ####[facility] [address] [place] [address]Dr. Eddie Lerner VIT D RANGES SEE BELOW Normal [facility] Comment on above: Result Comment: <20 ng/mL Vit D deficient 20 - <30 ng/mL Vit D insufficient 30 - 100 ng/mL Vit D sufficient >100 ng/mL Potential Toxicity Performed By: #### V ITAD ####[facility] [address] [place] [address]Dr. Eddie Lerner ACID FAST SMEAR AND CXon Acid Fast Culture Negative Normal [facility] Comment on above: Result Comment: No a wendy fast bacilli isolated after 6 weeks. Performed By: #### A FB ####[facility] [address] [place] [address]Dr. Eddie Lerner Acid Fast Smear Negative Normal [facility] Comment on above: Performed By: #### A FB ####[facility] [address] [place] [address]Dr. Eddie Lerner [employer] Specimen Processing Tissue Grinding Normal [facility] Comment on above: Performed By: #### A FB ####[facility] [address] [place] [address]Dr. Eddie Lerner FUNGAL CULTUREon 01-19-2022 Fungus (Mycology) Culture Final report Normal [facility] Comment on above: Performed By: #### R ENAL, LIPID, LIVER, TSH #### [facility] [address] [address] [address] Eddie Lerner Fungus Stain Final report Normal [facility] Comment on above: Performed By: #### R ENAL, LIPID, LIVER, TSH #### [facility] [address] [place], [place] [address] Dr. Eddie Lerner Result 1 Comment Normal [facility] Comment on above: Result Comment: ANNEMARIE/ Calcofluor preparation: no fungus observed. Performed By: #### R ENAL, LIPID, LIVER, TSH #### [facility] [address] [place], [place] [address] Dr. Eddie Lerner Result Comment: No y east or mold isolated after 4 weeks. POINT OF CARE GLUCOSEon 12-28 Glucose [Mass/Vol] 177 mg/dL Critically high -106 [facility] Comment on above: Performed By: #### A 1C #### [facility] [address] [address] [address] Eddie Lerner Glucose [Mass/Vol] 200 mg/dL Critically high [facility] Comment on above: Performed By: #### P OCGLUC ####[facility] [address] [place], [place] [address]FrDr. Eddie Lerner Covid-19 PCR (CVDTB)on 12-28 SARS-CoV-2 (COVID-19) RNA SUDHA+probe Ql (Unsp spec) Not detected Normal NOT DETECTED [facility] Comment on above: Result Comment: This test is not yet approved or cleared by the [place] FDA. When there are no FDA-approved or cleared tests available, and other criteria are met, FDA can make tests available under an emergency access mechanism called an Emergency Use Authorization (EUA). The EUA for this test is supported by the Electromatic Typist of Health and Human Service's (HHS's) declaration [...] SARS-CoV-2. Performed By: #### A 1C #### [facility] [address] [place] [address] Dr. Eddie Lerner PROF CHEM 8 (BAS METB)on Anion gap [Moles/Vol] 15.0 mmol/L Normal [facility] Comment on above: Performed By: #### R ENAL, LIPID, LIVER, TSH #### [facility] [address] [place] [address] Dr. Eddie Lerner Calcium [Mass/Vol] 9.3 mg/dL Normal 8.5-10.1 [facility] Comment on above: Performed By: #### R ENAL, LIPID, LIVER, TSH #### [facility] [address] [place] [address] Dr. Eddie Lerner Chloride [Moles/Vol] 105 mmol/L Normal 98-107 [facility] Comment on above: Performed By: #### R ENAL, LIPID, LIVER, TSH #### [facility] [address] [place] [address] Dr. Eddie Lerner CO2 [Moles/Vol] 22.1 mmol/L Normal 21.0-32.[address] [facility] Comment on above: Performed By: #### R ENAL, LIPID, LIVER, TSH #### [facility] [address] [place] [address] Dr. Eddie Lerner Creatinine [Mass/Vol] 2.29 mg/dL Critically high 0.70-1.30 [facility] Comment on above: Performed By: #### R ENAL, LIPID, LIVER, TSH #### [facility] [address] [address] [address] Eddie Lerner EGFR-AF VIETNAMESE 35 mL/min/1.73m2 Critically low >=60 [facility] Comment on above: Performed By: #### R ENAL, LIPID, LIVER, TSH #### [facility] [address] [place] [address] Dr. Eddie Lerner EGFR-NON AF VIETNAMESE 29 mL/min/1.73m2 Critically low >=60 [facility] Comment on above: Performed By: #### R ENAL, LIPID, LIVER, TSH #### [facility] [address] [address] [address] Eddie Lerner Glucose [Mass/Vol] 115 mg/dL Critically high 74-106 [facility] Comment on above: Performed By: #### R ENAL, LIPID, LIVER, TSH #### [facility] [address] [address] [address] Eddie Lerner Potassium [Moles/Vol] 5.1 mmol/L Normal 3.5-5.1 [facility] Comment on above: Performed By: #### R ENAL, LIPID, LIVER, TSH #### [facility] [address] [address] [address] Eddie Lerner Sodium [Moles/Vol] 137 mmol/L Normal 136-145 [facility] Comment on above: Performed By: #### R ENAL, LIPID, LIVER, TSH #### [facility] [address] [address] [address] Eddie Lerner Urea nitrogen [Mass/Vol] 26.0 mg/dL Critically high 7.0-18.0 [facility] Comment on above: Performed By: #### R ENAL, LIPID, LIVER, TSH #### [facility] [address] [address] [address] Eddie Lerner Urea nitrogen/Creatinin e [Mass ratio] 11.4 mg/mg Normal [facility] Comment on above: Performed By: #### R ENAL, LIPID, LIVER, TSH #### [facility] [address] [address] [address] Eddie Lerner TISSUE CULTUREon 01-08-2022 Anaerobic Culture, Extended Incubation Final report Normal [facility] Comment on above: Performed By: #### C XTISSU ####[facility] [address] [place] [address]Dr. Eddie Lerner Result 1 Comment Normal [facility] Comment on above: Result Comment: Diph theroids, not Corynebacterium jeikeium Light growth Susceptibility not normally performed on this organism. Performed By: #### C XTISSU ####[facility] [address] [place] [address]Dr. Eddie Lerner Result Comment: No a naerobes recovered. Tissue Culture Final report Abnormal [facility] Comment on above: Performed By: #### C XTISSU ####[facility] [address] [place] [address]Dr. Eddie Lerner POINT OF CARE GLUCOSEon 08- Glucose [Mass/Vol] 89 mg/dL Normal 74-106 [facility] Comment on above: Performed By: #### R ENAL, LIPID, LIVER, TSH #### [facility] [address] [address] [address] Eddie Lerner Glucose [Mass/Vol] 85 mg/dL Normal 74-[address] [facility] Comment on above: Performed By: #### P OCGLUC ####[facility] [address] [place] [address]Dr. Eddie Lerner GRAM STAINon 12-21-2021 COMMENTS NO ORGANISMS OBSERVED Normal [facility] Comment on above: Performed By: #### R ENAL, LIPID, LIVER, TSH #### [facility] [address] [address] [address] Eddie Lerner DIPHTHEROIDS Normal [facility] Comment on above: Performed By: #### R ENAL, LIPID, LIVER, TSH #### [facility] [address] [address] [address] Eddie Lerner EPITHELIALS Normal [facility] Comment on above: Performed By: #### R ENAL, LIPID, LIVER, TSH #### [facility] [address] [address] [address] Eddie Lerner FUNGAL ELEMENTS Normal [facility] Comment on above: Performed By: #### R ENAL, LIPID, LIVER, TSH #### [facility] [address] [address] [address] Eddie PRINGLE NEG BACILLI Normal [facility] Comment on above: Performed By: #### R ENAL, LIPID, LIVER, TSH #### [facility] [address] [address] [address] Eddie PRINGLE NEG DIPPLOCOCCI Normal [facility] Comment on above: Performed By: #### R ENAL, LIPID, LIVER, TSH #### [facility] [address] [address] [address] Eddie Lerner GRAM POS BACILLI Normal [facility] Comment on above: Performed By: #### R ENAL, LIPID, LIVER, TSH #### [facility] [address] [address] [address] Eddie Lerner GRAM POSITIVE COCCI Normal [facility] Comment on above: Performed By: #### R ENAL, LIPID, LIVER, TSH #### [facility] [address] [address] [address] Eddie Lerner GRAM STAIN SOURCE Lt 1st Metatarsal Bone [facility] Comment on above: Performed By: #### R ENAL, LIPID, LIVER, TSH #### [facility] [address] [address] [address] Eddie Lerner GS_DIPTH [facility] Comment on above: Performed By: #### R ENAL, LIPID, LIVER, TSH #### [facility] [address] [address] [address] Eddie Lerner WBC RARE Normal [facility] Comment on above: Performed By: #### R ENAL, LIPID, LIVER, TSH #### [facility] [address] [address] [address] Eddie Lerner POINT OF CARE GLUCOSEon 11-28 Glucose [Mass/Vol] 148 mg/dL Critically high 74-106 [facility] Comment on above: Performed By: #### A 1C #### [facility] [address] [address] [address] Eddie Lerner Glucose [Mass/Vol] 100 mg/dL Normal 74-106 [facility] Comment on above: Performed By: #### P OCGLUC ####[facility] [address] [place] [address]Dr. Eddie Lerner Glucose [Mass/Vol] 85 mg/dL Normal 74-106 [facility] Comment on above: Performed By: #### P OCGLUC ####[facility] [address] [place] [address]Dr. Eddie Lerner Glucose [Mass/Vol] 83 mg/dL Normal 74-106 [facility] Comment on above: Performed By: #### R ENAL, LIPID, LIVER, TSH #### [facility] [address] [place], [place] [address] Dr. Eddie Lerner Covid-19 PCR ([facility])on 11-28 SARS-CoV-2 (COVID-19) RNA SUDHA+probe Ql (Unsp spec) Not detected Normal NOT DETECTED [facility] Comment on above: Result Comment: This test is not yet approved or cleared by the [place] FDA. When there are no FDA-approved or cleared tests available, and other criteria are met, FDA can make tests available under an emergency access mechanism called an Emergency Use Authorization (EUA). The EUA for this test is supported by the Electromatic Typist of Health and Human Service's (HHS's) declaration [...] with SARS-CoV-2. Performed By: #### C VDTBH ####[facility] [address] [place], [place] [address]Dr. Eddie Lerner PROF CHEM 8 (BAS METB)on Anion gap [Moles/Vol] 11.5 mmol/L Normal [facility] Comment on above: Performed By: #### R ENAL, LIPID, LIVER, TSH #### [facility] [address] [place], [place] [address] Dr. Eddie Lerner Calcium [Mass/Vol] 9.0 mg/dL Normal 8.5-10.[address] [facility] Comment on above: Performed By: #### R ENAL, LIPID, LIVER, TSH #### [facility] [address] [place], [place] [address] Dr. Eddie Lerner Chloride [Moles/Vol] 102 mmol/L Normal 98-107 [facility] Comment on above: Performed By: #### R ENAL, LIPID, LIVER, TSH #### [facility] [address] [address] [address] Eddie Lerner CO2 [Moles/Vol] 24.8 mmol/L Normal 21.0-32.[address] [facility] Comment on above: Performed By: #### R ENAL, LIPID, LIVER, TSH #### [facility] [address] [address] [address] Eddie Lerner Creatinine [Mass/Vol] 2.19 mg/dL Critically high 0.70-1.30 [facility] Comment on above: Performed By: #### R ENAL, LIPID, LIVER, TSH #### [facility] [address] [address] [address] Eddie Lerner EGFR-AF VIET[place]ESE 37 mL/min/1.73m2 Critically low >=60 [facility] Comment on above: Performed By: #### R ENAL, LIPID, LIVER, TSH #### [facility] [address] [address] [address] Eddie Lerner EGFR-NON AF VIET[place]ESE 31 mL/min/1.73m2 Critically low >=60 [facility] Comment on above: Performed By: #### R ENAL, LIPID, LIVER, TSH #### [facility] [address] [address] [address] Eddie Lerner Glucose [Mass/Vol] 330 mg/dL Critically high 74-106 [facility] Comment on above: Performed By: #### R ENAL, LIPID, LIVER, TSH #### [facility] [address] [address] [address] Eddie Lerner Potassium [Moles/Vol] 5.3 mmol/L Critically high 3.5-5.1 [facility] Comment on above: Performed By: #### R ENAL, LIPID, LIVER, TSH #### [facility] [address] [address] [address] Eddie Lerner Sodium [Moles/Vol] 133 mmol/L Critically low 136-145 [facility] Comment on above: Performed By: #### R ENAL, LIPID, LIVER, TSH #### [facility] [address] [address] [address] Eddie Lerner Urea nitrogen [Mass/Vol] 25.0 mg/dL Critically high 7.0-18.0 [facility] Comment on above: Performed By: #### R ENAL, LIPID, LIVER, TSH #### [facility] [address] [address] [address] Eddie Lerner Urea nitrogen/Creatinin e [Mass ratio] 11.4 mg/mg Normal [facility] Comment on above: Performed By: #### R ENAL, LIPID, LIVER, TSH #### [facility] [address] [address] [address] Eddie Lerner Albumin [Mass/volume] in Ser um or Plasmaon 08-25-2020 Albumin [Mass/Vol] 2.0 g/dL 3.2-5.5 [facility] Basophils Auto (Bld) [#/Vol] on 08-25-2020 Basophils (Bld) [#/Vol] 0.0 10*3/uL 0.0-0.2 [facility] Basophils/100 WBC Auto (Bld) on 08-25-2020 Basophils/100 WBC (Bld) 0.1 % [facility] Blood anisocytosis detection on 08-25-2020 Anisocytosis Ql (Bld) Slight [facility] Blood hemoglobin measurement (mass/volume)on 08-25-2020 Hemoglobin (Bld) [Mass/Vol] 10.1 g/dL 13.0-17.0 [facility] Blood leukocytes automated c ount (number/volume)on 08-25-2020 WBC (Bld) [#/Vol] 12.6 10*3/uL 4.5-11.0 [facility] Blood polychromasia detectio n by light microscopyon 08-25-2020 Polychromasia LM Ql (Bld) Slight [facility] Creatinine and Glomerular fi ltration rate.predicted panel (S/P/Bld)on 08-25-2020 Creatinine [Mass/Vol] 4.06 mg/dL 0.64-1.27 [facility] Eosinophils Auto (Bld) [#/Vo l]on 08-25-2020 Eosinophils (Bld) [#/Vol] 0.0 10*3/uL 0.0-0.45 [facility] Eosinophils/100 WBC Auto (Bl d)on 08-25-2020 Eosinophils/100 WBC (Bld) 0.1 % [facility] Erythrocyte distribution wid th Auto (RBC) [Ratio]on 08-25-2020 Erythrocyte distribution width (RBC) [Ratio] 16.6 % 12.0-14.8 [facility] Estimated glomerular filtrat ion rate (GFR) non- Americanon 08-25-2020 GFR/1.73 sq M.predicted among non-blacks MDRD (S/P/Bld) [Vol rate/Area] 15 mL/Min [facility] Glucose Glucometer (BldC) [M ass/Vol]on 08-25-2020 Glucose [Mass/Vol] 122 mg/dL [facility] Comment on above: Random Glucose Refer ence Range is dependent on time and content of last meal. Glucose of more than 200 mg/dL in a nonstressed, ambulatory subject supports the diagnosis of Diabetes Mellitus. Hematocrit Auto (Bld) [Volum e fraction]on 08-25-2020 Hematocrit (Bld) [Volume fraction] 31.7 % 38.8-50.0 [facility] - Hematology and Cell countson 08-25-2020 Nucleated RBC/100 WBC (Bld) [Ratio] 0.2 % 0-0.5 [facility] Lymphocytes Auto (Bld) [#/Vo l]on 08-25-2020 Lymphocytes (Bld) [#/Vol] 1.1 10*3/uL 1.00-4.8 [facility] Lymphocytes/100 WBC Auto (Bl d)on 08-25-2020 Lymphocytes/100 WBC (Bld) 8.9 % [facility] MCH Auto (RBC) [Entitic mass ]on 08-25-2020 MCH (RBC) [Entitic mass] 26.2 pg 27.5-35.2 [facility] MCHC Auto (RBC) [Mass/Vol]on 08-25-2020 MCHC (RBC) [Mass/Vol] 31.9 g/dL 32.5-35.6 [facility] MCV Auto (RBC) [Entitic vol] on 08-25-2020 MCV (RBC) [Entitic vol] 82.3 fL 83.5-101 [facility] Monocytes Auto (Bld) [#/Vol] on 08-25-2020 Monocytes (Bld) [#/Vol] 1.2 10*3/uL 0.0-0.8 [facility] Monocytes/100 WBC Auto (Bld) on 08-25-2020 Monocytes/100 WBC (Bld) 9.6 % [facility] Neutrophils Auto (Bld) [#/Vo l]on 08-25-2020 Neutrophils (Bld) [#/Vol] 10.2 10*3/uL 1.8-7.7 [facility] Neutrophils/100 WBC Auto (Bl d)on 08-25-2020 Neutrophils/100 WBC (Bld) 81.3 % [facility] No Panel Informationon 08-25 Bedside Glucose Comment Glu2: cleaned meter [facility] Estimated GFR () 18 mL/Min [facility] Comment on above: GFR estimated refere nce range: According to KDOQI guidelines, <60 ml/min/1.73m2 is sufficient to diagnose a patient with chronic kidney disease. Pharmacy Creatinine Clearance (Chem 31.84 [facility] Platelet Estimate Normal Normal [facility] Platelet Morphology Comment Normal Normal [facility] Phosphate [Mass/volume] in S miki or Plasmaon 08-25-2020 Phosphate [Mass/Vol] 5.3 mg/dL 2.5-4.6 [facility] Platelet mean volume Auto (B ld) [Entitic vol]on 08-25-2020 Platelet mean volume (Bld) [Entitic vol] 7.1 fL 6.6-10.1 [facility] Platelets Auto (Bld) [#/Vol] on 08-25-2020 Platelets (Bld) [#/Vol] 388 10*3/uL 150-450 [facility] RBC Auto (Bld) [#/Vol]on RBC (Bld) [#/Vol] 3.85 10*6/uL 3.90-5.60 [facility] RBC morphologyon 08-25-2020 RBC morphology finding Nom (Bld) N/A [facility] Serum or plasma calcium joel urement (mass/volume)on 08-25-2020 Calcium [Mass/Vol] 8.7 mg/dL 8.2-10.2 [facility] Serum or plasma chloride faraz surement (moles/volume)on 08-25-2020 Chloride [Moles/Vol] 99 mmol/L 95-114 [facility] Serum or plasma glucose joel urement (mass/volume)on 08-25-2020 Glucose [Mass/Vol] 113 mg/dL 70-100 [facility] Comment on above: ADA recommended refe rence rangeRandom Glucose Reference Range is dependent on time and content of last meal. Glucose of more than 200 mg/dL in a nonstressed, ambulatory subject supports the diagnosis of Diabetes Mellitus. Serum or plasma potassium me asurement (moles/volume)on 08-25-2020 Potassium [Moles/Vol] 4.6 mmol/L 3.5-5.1 [facility] Serum or plasma sodium measu rement (moles/volume)on 08-25-2020 Sodium [Moles/Vol] 135 mmol/L 136-146 [facility] Serum or plasma total carbon dioxide measurement (moles/volume)on 08-25-2020 CO2 [Moles/Vol] 26.2 mmol/L 22.0-30.0 [facility] Serum or plasma urea nitroge n measurement (mass/volume)on 08-25-2020 Urea nitrogen [Mass/Vol] 75 mg/dL 9-23 [facility] Erythrocyte basophilic stipp ling detectionon 08-24-2020 Basophilic stippling LM Ql (Bld) Slight [facility] - Hematology and Cell countson 08-24-2020 Band form neutrophils/100 WBC (Bld) 1 % 0-5 [facility] Lymphocytes/100 WBC Auto (Bl d)on 08-24-2020 Lymphocytes/100 WBC (Bld) 6 % 18-42 [facility] Metamyelocytes/100 WBC Manua l cnt (Bld)on 08-24-2020 Metamyelocytes/100 WBC (Bld) 1 % 0-0 [facility] Monocytes/100 WBC Manual cnt (Bld)on 08-24-2020 Monocytes/100 WBC (Bld) 4 % 2-11 [facility] Myelocytes/100 WBC Manual cn t (Bld)on 08-24-2020 Myelocytes/100 WBC (Bld) 1 % 0-0 [facility] No Panel Informationon 08-24 Rouleau Slight [facility] Segmented neutrophils/100 WB C Manual cnt (Bld)on 08-24-2020 Segmented neutrophils/100 WBC (Bld) 87 % 50-70 [facility] No Panel Informationon 08-23 Bedside Glucose #[address]/rn [facility] Bedside Glucose #3 Comment Cleaned meter [facility] Serum nuclear antibody titer on 08-23-2020 Nuclear Ab (S) [Titer] Negative [facility] Comment on above: Negative <1:80 Borde rline 1:80 Positive >1:80Performed at: [facility] [address] [id number] Director: Mata Brian PhD, Phone: [phone] Serum or plasma rheumatoid f actor measurement (units/volume)on 08-23-2020 Rheumatoid factor Qn 20.6 [IU]/mL [facility] Comment on above: Performed at: [facility] [address] [id number] Director: Mata Brian PhD, Phone: [phone] CT biopsyon 08-22-2020 Transferrin [Mass/Vol] 104 mg/dL 180-380 [facility] Ferritin [Mass/volume] in Se rum or Plasmaon 08-22-2020 Ferritin [Mass/Vol] 334.8 ng/mL 23.9-336.2 [facility] Iron [Mass/volume] in Serum or Plasmaon 08-22-2020 Iron [Mass/Vol] 17 ug/dL 40-160 [facility] Iron binding capacity [Mass/ volume] in Serum or Plasmaon 08-22-2020 Iron binding capacity [Mass/Vol] 146 ug/dL 255-450 [facility] Iron saturation [Mass Fracti on] in Serum or Plasmaon 08-22-2020 Iron saturation [Mass fraction] 11.0 % 20-50 [facility] Creatine kinase [Enzymatic a ctivity/volume] in Serum or Plasmaon 08-21-2020 CK [Catalytic activity/Vol] 45 U/L 22-269 [facility] No Panel Informationon 08-21 Dohle Bodies Slight [facility] Serum or plasma cardiac trop onin I measurement (mass/volume)on 08-21-2020 Troponin I.cardiac [Mass/Vol] ng/mL 0-0.02 [facility] Comment on above: HÉCTOR NM Cut off value > or equal to 0.03 ng/mL in conjunction with clinical conditions of myocardial infarction.(www.escardio.org/guidelines) Serum or plasma creatine kin ase MB (CKMB)/total creatine kinase (CK) ratio by calculaon 08-21-2020 CK.MB Calc [Catalytic fraction] 5.1 % 0.00-2.50 [facility] Serum or plasma creatine kin ase MB measurement (mass/volume)on 08-21-2020 CK.MB [Mass/Vol] 2.3 ng/mL 0.6-6.3 [facility] Erythrocyte sedimentation ra te by Photometric methodon 08-20-2020 ESR Photometric method (Bld) [Velocity] 108 mm/hr 0-19 [facility] Serum or plasma C reactive p rotein measurement (mass/volume)on 08-20-2020 CRP [Mass/Vol] 19.4 mg/dL 0.0-1.0 [facility] ABO and Rh group post transf usion reaction Nom (Bld)on 08-19-2020 Microscopic observation Gram stain Nom (Unsp spec) [facility] Glucose mean value [Mass/vol ume] in Blood Estimated from glycated hemoglobinon 08-19-2020 Average glucose Estimated from glycated hemoglobin (Bld) [Mass/Vol] 298 mg/dL [facility] Hemoglobin A1c percentageon 08-19-2020 HbA1c (Bld) [Mass fraction] 12.0 % 4.3-5.6 [facility] Comment on above: Increased risk for d iabetes: 5.7 - 6.4diabetes: >6.4glycemic control for adults with diabetes: <7.0 Laboratory - Chemistry and C hemistry - challengeon 08-19-2020 Magnesium [Mass/Vol] 2.0 mg/dL 1.6-2.6 [facility] No Panel Informationon 08-19 25-Hydroxy Vitamin D Total 24.6 ng/mL 30-100 [facility] Comment on above: VITAMIN D STATUS [...] aPTT Coag (PPP) [Time] 36.9 s 25.1-36.5 [facility] Albumin [Mass/volume] in Ser um or Plasmaon 08-18-2020 Albumin [Mass/Vol] 2.7 g/dL 3.2-5.5 [facility] Bacterial blood cultureon Bacteria identified Cx Nom (Bld) NO GROWTH 5 DAYS [facility] Basophils Auto (Bld) [#/Vol] on 08-18-2020 Basophils (Bld) [#/Vol] 0.0 10*3/uL 0.0-0.2 [facility] Basophils/100 WBC Auto (Bld) on 08-18-2020 Basophils/100 WBC (Bld) 0.3 % [facility] Beta-hydroxybutyric acid faraz surementon 08-18-2020 Beta hydroxybutyrate [Mass/Vol] 0.44 mmol/L 0.02-0.27 [facility] Blood hemoglobin measurement (mass/volume)on 08-18-2020 Hemoglobin (Bld) [Mass/Vol] 11.8 g/dL 13.0-17.0 [facility] Blood leukocytes automated c ount (number/volume)on 08-18-2020 WBC (Bld) [#/Vol] 15.3 10*3/uL 4.5-11.0 [facility] COVID-19 Detected/Not Detect edon 08-18-2020 SARS-CoV-2 (COVID-19) RNA SUDHA+non-probe Ql (Nph) Not detected Not Detecte [facility] Comment on above: This is a duplicate RP2.1 COVID (PCR) result to be used for statistical tracking purpose only. COVID-19 SOFIAon 08-18-2020 SARS-CoV+SARS-CoV- 2 (COVID-19) Ag IA.rapid Ql (Resp) Negative Negative [facility] Comment on above: This is a duplicate Ayah SARS Antigen (AGUSTINA) result to be used for statistical tracking purpose only. Creatinine and Glomerular fi ltration rate.predicted panel (S/P/Bld)on 08-18-2020 Creatinine [Mass/Vol] 3.04 mg/dL 0.64-1.27 [facility] Eosinophils Auto (Bld) [#/Vo l]on 08-18-2020 Eosinophils (Bld) [#/Vol] 0.5 10*3/uL 0.0-0.45 [facility] Eosinophils/100 WBC Auto (Bl d)on 08-18-2020 Eosinophils/100 WBC (Bld) 3.4 % [facility] Erythrocyte distribution wid th Auto (RBC) [Ratio]on 08-18-2020 Erythrocyte distribution width (RBC) [Ratio] 16.3 % 12.0-14.8 [facility] Estimated glomerular filtrat ion rate (GFR) non- Americanon 08-18-2020 GFR/1.73 sq M.predicted among non-blacks MDRD (S/P/Bld) [Vol rate/Area] 21 mL/Min [facility] Globulin Calc (S) [Mass/Vol] on 08-18-2020 Globulin (S) [Mass/Vol] 4.4 g/dL [facility] Glucose Glucometer (BldC) [M ass/Vol]on 08-18-2020 Glucose [Mass/Vol] 388 mg/dL [facility] Comment on above: Random Glucose Refer ence Range is dependent on time and content of last meal. Glucose of more than 200 mg/dL in a nonstressed, ambulatory subject supports the diagnosis of Diabetes Mellitus. Hematocrit Auto (Bld) [Volum e fraction]on 08-18-2020 Hematocrit (Bld) [Volume fraction] 36.1 % 38.8-50.0 [facility] Laboratory - Chemistry and C hemistry - challengeon 08-18-2020 CO2 [Moles/Vol] 25.7 mmol/L 24.0-29.0 [facility] HCO3 (Bld) [Moles/Vol] 24.3 mmol/L 23.0-29.0 [facility] Magnesium [Mass/Vol] 2.2 mg/dL 1.6-2.6 [facility] Natriuretic peptide B (Bld) [Mass/Vol] 48.0 pg/mL 5-100 [facility] Laboratory - Coagulationon 0 08-18-2020 PT Coag (PPP) [Time] 11.7 s 9.0-12.9 [facility] Laboratory - Hematology and Cell countson 08-18-2020 Nucleated RBC/100 WBC (Bld) [Ratio] 0.1 % 0-0.5 [facility] Lymphocytes Auto (Bld) [#/Vo l]on 08-18-2020 Lymphocytes (Bld) [#/Vol] 0.9 10*3/uL 1.00-4.8 [facility] Lymphocytes/100 WBC Auto (Bl d)on 08-18-2020 Lymphocytes/100 WBC (Bld) 6.1 % [facility] MCH Auto (RBC) [Entitic mass ]on 08-18-2020 MCH (RBC) [Entitic mass] 27.2 pg 27.5-35.2 [facility] MCHC Auto (RBC) [Mass/Vol]on 08-18-2020 MCHC (RBC) [Mass/Vol] 32.6 g/dL 32.5-35.6 [facility] MCV Auto (RBC) [Entitic vol] on 08-18-2020 MCV (RBC) [Entitic vol] 83.5 fL 83.5-101 [facility] Monocytes Auto (Bld) [#/Vol] on 08-18-2020 Monocytes (Bld) [#/Vol] 1.5 10*3/uL 0.0-0.8 [facility] Monocytes/100 WBC Auto (Bld) on 08-18-2020 Monocytes/100 WBC (Bld) 10.1 % [facility] Neutrophils Auto (Bld) [#/Vo l]on 08-18-2020 Neutrophils (Bld) [#/Vol] 12.3 10*3/uL 1.8-7.7 [facility] Neutrophils/100 WBC Auto (Bl d)on 08-18-2020 Neutrophils/100 WBC (Bld) 80.1 % [facility] No Panel Informationon 08-18 Respiratory Panel (PCR) [facility] Blood Gas Critical Value See comment [facility] Comment on above: Critical Value fonseca d on: 08/18/2020 at 17:44 Blood Gas Sample Site Venous [facility] FiO2 21 % [facility] Venous Blood Base Excess -1.5 mmol/L -3.0-3.0 [facility] Venous Blood Oxygen Content 4.1 mmol/L 6.6-9.7 [facility] Venous Blood Oxygen Saturation 53.3 % 73.0-76.0 [facility] Venous Blood Partial Pressure CO2 45.2 mm[Hg] 38.0-50.0 [facility] Venous Blood Partial Pressure O2 24.4 mm[Hg] 35.0-45.0 [facility] Venous Blood pH 7.35 7.32-7.43 [facility] Estimated GFR () 26 mL/Min [facility] Comment on above: GFR estimated refere nce range: According to KDOQI guidelines, <60 ml/min/1.73m2 is sufficient to diagnose a patient with chronic kidney disease. Pharmacy Creatinine Clearance (Chem 38.57 [facility] Platelet mean volume Auto (B ld) [Entitic vol]on 08-18-2020 Platelet mean volume (Bld) [Entitic vol] 7.3 fL 6.6-10.1 [facility] Platelet poor plasma interna tional normalized ratio (INR) by coagulation assay (relaton 08-18-2020 INR Coag (PPP) [Relative time] 1.0 {INR} [facility] Comment on above: INR Therapeutic Rang [...] 08-18-2020 Platelets (Bld) [#/Vol] 249 10*3/uL 150-450 [facility] Protein [Mass/volume] in Ser um or Plasmaon 08-18-2020 Protein [Mass/Vol] 7.1 g/dL 6.1-7.9 [facility] RBC Auto (Bld) [#/Vol]on RBC (Bld) [#/Vol] 4.32 10*6/uL 3.90-5.60 [facility] Serum or plasma alanine gomez otransferase measurement without P-5'-P (enzymatic activion 08-18-2020 ALT No additional P-5'-P [Catalytic activity/Vol] 13 U/L 10-60 [facility] Serum or plasma albumin/glob ulin mass ratioon 08-18-2020 Albumin/Globulin [Mass ratio] 0.6 {ratio} [facility] Serum or plasma alkaline kayode sphatase measurement (enzymatic activity/volume)on 08-18-2020 ALP [Catalytic activity/Vol] 88 U/L 32-92 [facility] Serum or plasma aspartate am inotransferase measurement (enzymatic activity/volume)on 08-18-2020 AST [Catalytic activity/Vol] 16 U/L 10-42 [facility] Serum or plasma calcium joel urement (mass/volume)on 08-18-2020 Calcium [Mass/Vol] 8.9 mg/dL 8.2-10.2 [facility] Serum or plasma cardiac trop onin I measurement (mass/volume)on 08-18-2020 Troponin I.cardiac [Mass/Vol] ng/mL 0-0.02 [facility] Comment on above: HÉCTOR NM Cut off value > or equal to 0.03 ng/mL in conjunction with clinical conditions of myocardial infarction.([email or web address].org/[email or web address]) Serum or plasma chloride faraz surement (moles/volume)on 08-18-2020 Chloride [Moles/Vol] 95 mmol/L 95-114 [facility] Serum or plasma glucose joel urement (mass/volume)on 08-18-2020 Glucose [Mass/Vol] 512 mg/dL 70-100 [facility] Comment on above: Results calledat 165 9 on 08/18/20 ADA recommended reference rangeRandom Glucose Reference Range is dependent on time and content of last meal. Glucose of more than 200 mg/dL in a nonstressed, ambulatory subject supports the diagnosis of Diabetes Mellitus. Serum or plasma potassium me asurement (moles/volume)on 08-18-2020 Potassium [Moles/Vol] 4.2 mmol/L 3.5-5.1 [facility] Serum or plasma sodium measu rement (moles/volume)on 08-18-2020 Sodium [Moles/Vol] 128 mmol/L 136-146 [facility] Serum or plasma total biliru bin measurement (mass/volume)on 08-18-2020 Bilirubin [Mass/Vol] 0.7 mg/dL 0.3-1.2 [facility] Serum or plasma total carbon dioxide measurement (moles/volume)on 08-18-2020 CO2 [Moles/Vol] 22.6 mmol/L 22.0-30.0 [facility] Serum or plasma urea nitroge n measurement (mass/volume)on 08-18-2020 Urea nitrogen [Mass/Vol] 27 mg/dL - [facility] CBC COMPLETE BLOOD COUNTon 0 - Erythrocyte distribution width (RBC) [Ratio] 15.0 % Normal 11.5-15.0 [facility] Comment on above: Order Comment: No: D o not add to previous draw Performed By: #### [id number] #### [address] [place] [address], [facility] Hematocrit (Bld) [Volume fraction] 32.4 % Low 39.0-50.0 [facility] Comment on above: Order Comment: No: D o not add to previous draw Performed By: #### 8 [id number] #### [facility] [address] [place] [address], [facility] Hemoglobin (Bld) [Mass/Vol] 9.5 g/dL Low 13.0-17.0 [facility] Comment on above: Order Comment: No: D o not add to previous draw Performed By: #### 8 [id number] #### [facility] [address] [place] [address], [facility] MCH (RBC) [Entitic mass] 26.7 pg Low 27.0-33.0 [facility] Comment on above: Order Comment: No: D o not add to previous draw Performed By: #### 8 [id number] #### [facility] [address] [place] [address], [facility] MCHC (RBC) [Mass/Vol] 29.3 g/dL Low 32.0-35.0 [facility] Comment on above: Order Comment: No: D o not add to previous draw Performed By: #### 8 [id number] #### [facility] [address] [place] [address], [facility] MCV (RBC) [Entitic vol] 91.0 fL Normal 82.0-98.0 [facility] Comment on above: Order Comment: No: D o not add to previous draw Performed By: #### 8 [id number] #### [facility] [address] [place] [address], [facility] Nucleated RBC/100 WBC (Bld) [Ratio] 0 % Normal 0-0 [facility] Comment on above: Order Comment: No: D o not add to previous draw Performed By: #### 8 [id number] #### [facility] [address] [place] [id number], [facility] PLAT CNT 276 10*3/uL Normal 150-400 [facility] Comment on above: Order Comment: No: D o not add to previous draw Performed By: #### 8 [id number] #### [facility] [address] [place] [address], [facility] RBC (Bld) [#/Vol] 3.56 10*6/uL Low 4.20-5.70 [facility] Comment on above: Order Comment: No: D o not add to previous draw Performed By: #### 8 [id number] #### [facility] [address] [place] [address], [facility] WBC (Bld) [#/Vol] 8.61 10*3/uL Normal 4.00-10.60 [facility] Comment on above: Order Comment: No: D o not add to previous draw Performed By: #### 8 [id number] #### [facility] [address] [place] [address], [facility] COMP METABOLIC PANELon 07-22 Albumin [Mass/Vol] 2.7 g/dL Low 3.5-5.7 [facility] Comment on above: Order Comment: No: D o not add to previous draw Performed By: #### 8 [id number] #### [facility] [address] [place] [address], [facility] ALKALINE PHOSPH 70 IU/L Normal 34-104 [facility] Comment on above: Order Comment: No: D o not add to previous draw Performed By: #### 8 [id number] #### [facility] [address] [place] [address], [facility] ALT [Catalytic activity/Vol] 4 U/L Low 7-52 [facility] Comment on above: Order Comment: No: D o not add to previous draw Performed By: #### 8 [id number] #### [facility] [address] [place] [id number], [facility] AST [Catalytic activity/Vol] 15 U/L Normal 13-39 [facility] Comment on above: Order Comment: No: D o not add to previous draw Performed By: #### 8 [id number] #### [facility] [address] [place] [address], [place] Bilirubin [Mass/Vol] 0.2 mg/dL Low 0.3-1.0 [facility] Comment on above: Order Comment: No: D o not add to previous draw Performed By: #### 8 [id number] #### [facility] [address] [place] [address], [place] Calcium [Mass/Vol] 8.9 mg/dL Normal 8.6-10.3 [facility] Comment on above: Order Comment: No: D o not add to previous draw Performed By: #### 8 [id number] #### [facility] [address] [place] [address], [place] Chloride [Moles/Vol] 109 mmol/L High 98-107 [facility] Comment on above: Order Comment: No: D o not add to previous draw Performed By: #### 8 [id number] #### [facility] [address] [place] [address], [place] CO2 [Moles/Vol] 24 mmol/L Normal 21-31 [facility] Comment on above: Order Comment: No: D o not add to previous draw Performed By: #### 8 [id number] #### [facility] [address] [place] [address], [place] Creatinine [Mass/Vol] 3.39 mg/dL High 0.70-1.30 [facility] Comment on above: Order Comment: No: D o not add to previous draw Performed By: #### 8 [id number] #### [facility] [address] [place] [address], [place] eGFR- 23 ml/min/1.73sq m Abnormal >60 [facility] Comment on above: Order Comment: No: D o not add to previous draw Performed By: #### 8 [id number] #### [facility] [address] [place] [address], [place] eGFR- non- 19 ml/min/1.73sq m Abnormal >60 [facility] Comment on above: Order Comment: No: D o not add to previous draw Performed By: #### 8 [id number] #### [facility] [address] [place] [address], [place] Glucose [Mass/Vol] 90 mg/dL Normal 70-100 [facility] Comment on above: Order Comment: No: D o not add to previous draw Performed By: #### 8 [id number] #### [facility] [address] [place] [address], [place] Potassium [Moles/Vol] 4.4 mmol/L Normal 3.5-5.1 [facility] Comment on above: Order Comment: No: D o not add to previous draw Performed By: #### 8 [id number] #### [facility] [address] [place] [address], [place] Protein [Mass/Vol] 5.9 g/dL Low 6.0-8.3 [facility] Comment on above: Order Comment: No: D o not add to previous draw Performed By: #### 8 [id number] #### [facility] [address] [place] [address], [place] Sodium [Moles/Vol] 140 mmol/L Normal 136-145 [facility] Comment on above: Order Comment: No: D o not add to previous draw Performed By: #### 8 [id number] #### [facility] [address] [place] [address], [place] Urea nitrogen [Mass/Vol] 35 mg/dL High 7-25 [facility] Comment on above: Order Comment: No: D o not add to previous draw Performed By: #### 8 [id number] #### [facility] [address] [place] [address], [place] POC GLUCOSE LABon 07-22-2020 Glucose [Mass/Vol] 192 mg/dL High 70-100 [facility] Comment on above: Performed By: #### 8 [id number] #### [facility] [address] [place] [address], [facility] Glucose [Mass/Vol] 95 mg/dL Normal 70-100 [facility] Comment on above: Performed By: #### 5 [id number], [id number] #### [facility] [address] [place] [address], [facility] Glucose [Mass/Vol] 123 mg/dL High 70-100 [facility] Comment on above: Performed By: #### 8 [id number] ####[facility] ARTERIAL BLOOD GAS WITH ICAo n 07-21-2020 BASE EXCESS -2 mmol/L Normal -2-3 [facility] Comment on above: Performed By: #### 8 [id number] #### [facility] [address] [place] [address], [facility] [employer] FOCUS Normal [facility] Comment on above: Performed By: #### 8 [id number] #### [facility] [address] [place] [address], [facility] HCO3 (Bld) [Moles/Vol] 24 mmol/L Normal 21-28 [facility] Comment on above: Performed By: #### 8 [id number] #### [facility] [address] [place] [address], [facility] IONIZED CALCIUM 1.25 mmol/L Normal 1.13-1.32 [facility] Comment on above: Performed By: #### 8 [id number] #### [facility] [address] [place] [address], [facility] LPM 4.0 LPM Normal [facility] Comment on above: Performed By: #### 8 [id number] #### [facility] [address] [place] [address], [facility] MODALITY BIPAP Normal [facility] Comment on above: Performed By: #### 8 [id number] #### [facility] [address] [place] [address], [facility] Oxygen (Bld) [Partial pressure] 91 mm[Hg] Normal 83-108 [facility] Comment on above: Performed By: #### 8 [id number] #### [facility] [address] [place] [address], [facility] Oxygen saturation in Blood 95.9 % Normal 94.0-97.0 [facility] Comment on above: Performed By: #### 8 [id number] #### [facility] [address] [place] [address], [facility] PCO2 47 mmHg High 35-45 [facility] Comment on above: Performed By: #### 8 [id number] #### [facility] [address] [place] [address], [facility] PEEP 8.0 CMH20 Normal [facility] Comment on above: Performed By: #### 8 [id number] #### [facility] [address] [place] [address], [facility] pH (Bld) 7.32 [pH] Low 7.35-7.45 [facility] Comment on above: Performed By: #### 8 [id number] #### [facility] [address] [place] [address], [facility] PRESSURE SUPPORT 16 Normal [facility] Comment on above: Performed By: #### 8 [id number] #### [facility] [address] [place] [address], [facility] BASE EXCESS -3 mmol/L Low -2-3 [facility] Comment on above: Performed By: #### 3 0318 #### [facility] [address] [place] [address], [facility] [employer] NASAL CANNULA Normal [facility] Comment on above: Performed By: #### 3 0318 #### [facility] [address] [place] [address], [facility] HCO3 (Bld) [Moles/Vol] 25 mmol/L Normal 21-28 [facility] Comment on above: Performed By: #### 3 0318 #### [facility] [address] [place] [address], [facility] IONIZED CALCIUM 1.26 mmol/L Normal 1.13-1.32 [facility] Comment on above: Performed By: #### 3 0318 #### [facility] [address] [place] [address], [facility] LPM 2.0 LPM Normal [facility] Comment on above: Performed By: #### 3 8 #### [facility] [address] [place] [address], [facility] Oxygen (Bld) [Partial pressure] 92 mm[Hg] Normal 83-108 [facility] Comment on above: Performed By: #### 3 0318 #### [facility] [address] [place] [address], [facility] Oxygen saturation in Blood 95.7 % Normal 94.0-97.0 [facility] Comment on above: Performed By: #### 3 8 #### [facility] [address] [place] [address], [facility] PCO2 54 mmHg High 35-45 [facility] Comment on above: Performed By: #### 3 0318 #### [facility] [address] [place] [address], [place] pH (Bld) 7.27 [pH] Low 7.35-7.45 [facility] Comment on above: Performed By: #### 3 8 #### [facility] [address] [place] [address], [place] BASIC METABOLIC PANELon 06-28 Calcium [Mass/Vol] 9.0 mg/dL Normal 8.6-10.3 [facility] Comment on above: Order Comment: No: D o not add to previous drawPt not in room rn will return when back. Performed By: #### 3 1943 #### [facility] [address] [place] [address], [facility] Chloride [Moles/Vol] 106 mmol/L Normal 98-107 [facility] Comment on above: Order Comment: No: D o not add to previous drawPt not in room rn will return when back. Performed By: #### 3 1943 #### [facility] [address] [place] [address], [facility] CO2 [Moles/Vol] 25 mmol/L Normal 21-31 [facility] Comment on above: Order Comment: No: D o not add to previous drawPt not in room rn will return when back. Performed By: #### 3 1943 #### [facility] [address] [place] [address], [facility] Creatinine [Mass/Vol] 3.75 mg/dL High 0.70-1.30 [facility] Comment on above: Order Comment: No: D o not add to previous drawPt not in room rn will return when back. Performed By: #### 3 1943 #### [facility] [address] [place] [address], [facility] eGFR- 20 ml/min/1.73sq m Abnormal >60 [facility] Comment on above: Order Comment: No: D o not add to previous drawPt not in room rn will return when back. Performed By: #### 3 1943 #### [facility] [address] [place] [address], [facility] eGFR- non- 17 ml/min/1.73sq m Abnormal >60 [facility] Comment on above: Order Comment: No: D o not add to previous drawPt not in room rn will return when back. Performed By: #### 3 1943 #### [facility] [address] [place] [address], [facility] Glucose [Mass/Vol] 132 mg/dL High 70-100 [facility] Comment on above: Order Comment: No: D o not add to previous drawPt not in room rn will return when back. Performed By: #### 3 1943 #### [facility] [address] [place] [address], [facility] Potassium [Moles/Vol] 5.0 mmol/L Normal 3.5-5.1 [facility] Comment on above: Order Comment: No: D o not add to previous drawPt not in room rn will return when back. Performed By: #### 3 1943 #### [facility] [address] [place] [address], [facility] Sodium [Moles/Vol] 138 mmol/L Normal 136-145 [facility] Comment on above: Order Comment: No: D o not add to previous drawPt not in room rn will return when back. Performed By: #### 3 1943 #### [facility] [address] [place] [address], [facility] Urea nitrogen [Mass/Vol] 37 mg/dL High 7-25 [facility] Comment on above: Order Comment: No: D o not add to previous drawPt not in room rn will return when back. Performed By: #### 3 1943 #### [facility] [address] [place] [address], [facility] CBC COMPLETE BLOOD COUNTon 0 07-21-2020 Erythrocyte distribution width (RBC) [Ratio] 15.0 % Normal 11.5-15.0 [facility] Comment on above: Order Comment: No: D o not add to previous drawPt not in room rn will return when back. Performed By: #### 8 [id number] #### [facility] [address] [place] [address], [facility] Hematocrit (Bld) [Volume fraction] 33.9 % Low 39.0-50.0 [facility] Comment on above: Order Comment: No: D o not add to previous drawPt not in room rn will return when back. Performed By: #### 8 [id number] #### [facility] [address] [place] [address], [facility] Hemoglobin (Bld) [Mass/Vol] 9.9 g/dL Low 13.0-17.0 [facility] Comment on above: Order Comment: No: D o not add to previous drawPt not in room rn will return when back. Performed By: #### 8 [id number] #### [facility] [address] [place] [address], [facility] MCH (RBC) [Entitic mass] 26.9 pg Low 27.0-33.0 [facility] Comment on above: Order Comment: No: D o not add to previous drawPt not in room rn will return when back. Performed By: #### 8 [id number] #### [facility] [address] [place] [address], [facility] MCHC (RBC) [Mass/Vol] 29.2 g/dL Low 32.0-35.0 The [facility] Comment on above: Order Comment: No: D o not add to previous drawPt not in room rn will return when back. Performed By: #### 8 [id number] #### [facility] [address] [place] [address], [facility] MCV (RBC) [Entitic vol] 92.1 fL Normal 82.0-98.0 The [facility] Comment on above: Order Comment: No: D o not add to previous drawPt not in room rn will return when back. Performed By: #### 8 [id number] #### [facility] [address] [place] [address], [facility] Nucleated RBC/100 WBC (Bld) [Ratio] 0 % Normal 0-0 [facility] Comment on above: Order Comment: No: D o not add to previous drawPt not in room rn will return when back. Performed By: #### 8 [id number] #### [place] [address], [facility] PLAT CNT 288 10*3/uL Normal 150-400 The [facility] Comment on above: Order Comment: No: D o not add to previous drawPt not in room rn will return when back. Performed By: #### 8 [id number] #### [facility] [address] [place] [address], [facility] RBC (Bld) [#/Vol] 3.68 10*6/uL Low 4.20-5.70 The [facility] Comment on above: Order Comment: No: D o not add to previous drawPt not in room rn will return when back. Performed By: #### 8 [id number] #### [place] [address], [facility] WBC (Bld) [#/Vol] 9.51 10*3/uL Normal 4.00-10.60 The [facility] Comment on above: Order Comment: No: D o not add to previous drawPt not in room rn will return when back. Performed By: #### 8 [id number] #### [address] CHEST WO CONTRASTon 07-21 CT CHEST WO CONTRAST [facility] Department of Radiology [address] [place] [id number] Patient Name: RASHARD LYMAN : 1960 Sex: M Age: Race: White Pt. Location: [address] [place] [address] Patient Status: I Ordered Date: 07/21/2020 6:00:00 [...] pneumonia. Electronically signed: Manuel Saldaña. Transcribed by: [email or web address], User Resident: Electronically Signed by: MANUEL SALDAÑA @ 07/21/2020 08:38 AM Normal The [facility] Comment on above: Order Comment: Left Peural Effusion POC GLUCOSE LABon 07-21-2020 Glucose [Mass/Vol] 134 mg/dL High 70-100 The [facility] Comment on above: Performed By: #### 5 0103 #### [facility] [address] [place] [address], [place] Glucose [Mass/Vol] 88 mg/dL Normal 70-100 The [facility] Comment on above: Performed By: #### 8 [id number] #### [facility] [address] [place] [address], [place] Glucose [Mass/Vol] 110 mg/dL High 70-100 The [facility] Comment on above: Performed By: #### 8 [id number] #### [facility] [address] [place] [address], [place] Glucose [Mass/Vol] 118 mg/dL High 70-100 [facility] Comment on above: Performed By: #### 5 7307, [address]150 #### [facility] [address] [place] [address], [place] Glucose [Mass/Vol] 137 mg/dL High 70-100 [facility] Comment on above: Performed By: #### 5 7307, [address] #### [facility] [address] [place] [address], [place] BASIC METABOLIC PANELon 06-28 Calcium [Mass/Vol] 8.4 mg/dL Low 8.6-10.3 The [facility] Comment on above: Order Comment: No: D o not add to previous draw Performed By: #### 8 [id number] #### [facility] [address] [place] [address], [place] Chloride [Moles/Vol] 107 mmol/L Normal 98-107 The [facility] Comment on above: Order Comment: No: D o not add to previous draw Performed By: #### 8 [id number] #### [facility] [address] [place] [address], [place] CO2 [Moles/Vol] 23 mmol/L Normal 21-31 The [facility] Comment on above: Order Comment: No: D o not add to previous draw Performed By: #### 8 [id number] #### [facility] [address] [place] [address], [place] Creatinine [Mass/Vol] 3.95 mg/dL High 0.70-1.30 The [facility] Comment on above: Order Comment: No: D o not add to previous draw Performed By: #### 8 [id number] #### [facility] [address] [place] [address], [facility] eGFR- 19 ml/min/1.73sq m Abnormal >60 The [facility] Comment on above: Order Comment: No: D o not add to previous draw Performed By: #### 8 5499 #### [facility] [address] [place] [address], [place] eGFR- non- 16 ml/min/1.73sq m Abnormal >60 The [facility] Comment on above: Order Comment: No: D o not add to previous draw Performed By: #### 8 [id number] #### [facility] [address] [place] [address], [place] Glucose [Mass/Vol] 110 mg/dL High 70-100 The [facility] Comment on above: Order Comment: No: D o not add to previous draw Performed By: #### 8 5499 #### [facility] [address] [place] [address], [place] Potassium [Moles/Vol] 4.9 mmol/L Normal 3.5-5.1 The [facility] Comment on above: Order Comment: No: D o not add to previous draw Performed By: #### 8 [id number] #### [facility] [address] [place] [address], [place] Sodium [Moles/Vol] 137 mmol/L Normal 136-145 The [facility] Comment on above: Order Comment: No: D o not add to previous draw Performed By: #### 8 [id number] #### [facility] [address] Urea nitrogen [Mass/Vol] 37 mg/dL High 7-25 The [facility] Comment on above: Order Comment: No: D o not add to previous draw Performed By: #### 8 5499 #### [facility] [address] CBC W/DIFFon 07-20-2020 ABS IMM GRANS 0.1 10*3/uL Normal 0.0-0.2 The [facility] Comment on above: Order Comment: No: D o not add to previous draw Performed By: #### 8 [id number] #### [facility] [address] ABS NEUTROPHILS 5.9 10*3/uL Normal 1.6-7.6 The [facility] Comment on above: Order Comment: No: D o not add to previous draw Performed By: #### 8 [id number] #### [facility] [address] [place] [address], [facility] Basophils (Bld) [#/Vol] 0.1 10*3/uL Normal 0.0-0.2 The [facility] Comment on above: Order Comment: No: D o not add to previous draw Performed By: #### 8 [id number] #### [facility] [address] [place] [address], [facility] Basophils/100 WBC (Bld) 1.0 % Normal 0.0-1.0 [facility] Comment on above: Order Comment: No: D o not add to previous draw Performed By: #### 8 [id number] #### [facility] [address] [place] [address], [facility] Eosinophils (Bld) [#/Vol] 0.4 10*3/uL Normal 0.0-0.5 The [facility] Comment on above: Order Comment: No: D o not add to previous draw Performed By: #### 8 5499 #### [facility] [address] [place] [address], [facility] Eosinophils/100 WBC (Bld) 5.1 % Normal 0.0-6.0 The [facility] Comment on above: Order Comment: No: D o not add to previous draw Performed By: #### 8 [id number] #### [facility] [address] Erythrocyte distribution width (RBC) [Ratio] 15.4 % High 11.5-15.0 The [facility] Comment on above: Order Comment: No: D o not add to previous draw Performed By: #### 8 [id number] #### [facility] [address] [facility]. [address] Hematocrit (Bld) [Volume fraction] 35.7 % Low 39.0-50.0 The [facility] Comment on above: Order Comment: No: D o not add to previous draw Performed By: #### 8 5499 #### [facility] [address] [facility]. [address] Hemoglobin (Bld) [Mass/Vol] 10.3 g/dL Low 13.0-17.0 The [facility] Comment on above: Order Comment: No: D o not add to previous draw Performed By: #### 8 [id number] #### [facility] [address] [place] [address], [facility] IMM PLATELET FRAC 0.4 % Low 0.8-6.3 The [facility] Comment on above: Order Comment: No: D o not add to previous draw Performed By: #### 8 5499 #### [facility] [address] [place] [address], [facility] IMMATURE GRANS 1.1 % High 0.0-1.0 The [facility] Comment on above: Order Comment: No: D o not add to previous draw Performed By: #### 8 [id number] #### [facility] [address] [place] [address], [facility] Lymphocytes (Bld) [#/Vol] 0.8 10*3/uL Low 1.2-4.0 The [facility] Comment on above: Order Comment: No: D o not add to previous draw Performed By: #### 8 5499 #### [facility] [address] [place] [address], [facility] Lymphocytes/100 WBC (Bld) 9.3 % Low 20.0-45.0 The [facility] Comment on above: Order Comment: No: D o not add to previous draw Performed By: #### 8 [id number] #### [facility] [address] [place] [id number], [facility] MCH (RBC) [Entitic mass] 27.4 pg Normal 27.0-33.0 The [facility] Comment on above: Order Comment: No: D o not add to previous draw Performed By: #### 8 [id number] #### [facility] [address] [facility] [place] [id number], [facility] MCHC (RBC) [Mass/Vol] 28.9 g/dL Low 32.0-35.0 [facility] Comment on above: Order Comment: No: D o not add to previous draw Performed By: #### 8 [id number] #### [facility] [address] [place] [id number], [facility] MCV (RBC) [Entitic vol] 94.9 fL Normal 82.0-98.0 [facility] Comment on above: Order Comment: No: D o not add to previous draw Performed By: #### 8 [id number] #### [facility] [address] [place] [id number], [facility] Monocytes (Bld) [#/Vol] 1.1 10*3/uL High 0.1-1.0 The [facility] Comment on above: Order Comment: No: D o not add to previous draw Performed By: #### 8 5499 #### [facility] [address] [place] [address], [place] MONOS 12.9 % High 5.0-12.0 The [facility] Comment on above: Order Comment: No: D o not add to previous draw Performed By: #### 8 5499 #### [facility] [address] [place] [address], [place] Neutrophils/100 WBC (Bld) 70.6 % Normal 40.0-72.0 The [facility] Comment on above: Order Comment: No: D o not add to previous draw Performed By: #### 8 [id number] #### [facility] [address] [place] [address], [place] Nucleated RBC/100 WBC (Bld) [Ratio] 0 % Normal 0-0 [facility] Comment on above: Order Comment: No: D o not add to previous draw Performed By: #### 8 [id number] #### [facility] [address] [place] [address], [place] PLAT ESTIMATE Normal Normal [facility] Comment on above: Order Comment: No: D o not add to previous draw Result Comment: EDTA smear shows platelet clumping, see platelet estimate Performed By: #### 8 [id number] #### [facility] [address] [place] [address], [place] RBC (Bld) [#/Vol] 3.76 10*6/uL Low 4.20-5.70 [facility] Comment on above: Order Comment: No: D o not add to previous draw Performed By: #### 8 5499 #### [facility] [address] [place] [address], [place] WBC (Bld) [#/Vol] 8.30 10*3/uL Normal 4.00-10.60 [facility] Comment on above: Order Comment: No: D o not add to previous draw Performed By: #### 8 [id number] #### [facility] [address] [facility] [place] [address], [facility] POC GLUCOSE LABon 07-20-2020 Glucose [Mass/Vol] 110 mg/dL High 70-100 [facility] [place] Comment on above: Performed By: #### 5 0103 #### [facility] [address] [facility] [place] [address], [facility] Glucose [Mass/Vol] 124 mg/dL High 70-100 The [facility] Comment on above: Performed By: #### 5 0103 #### [facility] [address] [facility] [place] [address], [facility] Glucose [Mass/Vol] 111 mg/dL High 70-100 The [facility] Comment on above: Performed By: #### 5 7307, [address] #### [facility] [address] [place] [address], [facility] PORTABLE CHEST 1 VIEWon 06-28 PORTABLE CHEST 1 VIEW [facility] Department of Radiology [address] [place] [id number] Patient Name: RASHARD LYMAN : 1960 Sex: M Age: Race: White Pt. Location: [id number] Patient Status: I Ordered Date: 07/20/2020 6:00:00 [...] unchanged Electronically signed: Manuel Saldaña. Transcribed by: [email or web address], User Resident: Electronically Signed by: MANUEL SALDAÑA @ 07/20/2020 09:07 AM Normal The [facility] Comment on above: Order Comment: Evalu ate for Effusion BASIC METABOLIC PANELon - Calcium [Mass/Vol] 8.4 mg/dL Low 8.6-10.3 The [facility] Comment on above: Order Comment: No: D o not add to previous draw Performed By: #### 3 1943 #### [facility] [address] [place] [address], [place] Chloride [Moles/Vol] 104 mmol/L Normal 98-107 The [facility] Comment on above: Order Comment: No: D o not add to previous draw Performed By: #### 3 1943 #### [facility] [address] [place] [address], [place] CO2 [Moles/Vol] 24 mmol/L Normal 21-31 The [facility] Comment on above: Order Comment: No: D o not add to previous draw Performed By: #### 3 1943 #### [facility] [address] [place] [address], [place] Creatinine [Mass/Vol] 4.15 mg/dL High 0.70-1.30 The [facility] Comment on above: Order Comment: No: D o not add to previous draw Performed By: #### 3 1943 #### [facility] [address] [place] [address], [place] eGFR- 18 ml/min/1.73sq m Abnormal >60 The [facility] Comment on above: Order Comment: No: D o not add to previous draw Performed By: #### 3 1943 #### [facility] [address] [place] [address], [place] eGFR- non- 15 ml/min/1.73sq m Abnormal >60 The [facility] Comment on above: Order Comment: No: D o not add to previous draw Performed By: #### 3 1943 #### [facility] [address] [place] [address], [place] Glucose [Mass/Vol] 180 mg/dL High 70-100 The [facility] Comment on above: Order Comment: No: D o not add to previous draw Performed By: #### 3 1943 #### [facility] [address] [place] [address], [place] Potassium [Moles/Vol] 4.4 mmol/L Normal 3.5-5.1 The [facility] Comment on above: Order Comment: No: D o not add to previous draw Performed By: #### 3 1943 #### [facility] [address] [place] [address], [place] Sodium [Moles/Vol] 135 mmol/L Low 136-145 The [facility] Comment on above: Order Comment: No: D o not add to previous draw Performed By: #### 3 1943 #### [facility] [address] [place] [address], [place] Urea nitrogen [Mass/Vol] 37 mg/dL High 7-25 The [facility] Comment on above: Order Comment: No: D o not add to previous draw Performed By: #### 3 1944 #### [facility] [address] [place] [id number], [facility] CBC COMPLETE BLOOD COUNTon 0 - Erythrocyte distribution width (RBC) [Ratio] 14.8 % Normal 11.5-15.0 The [facility] Comment on above: Order Comment: No: D o not add to previous draw Performed By: #### 8 [id number] #### [facility] [address] [place] [id number], [facility] Hematocrit (Bld) [Volume fraction] 30.9 % Low 39.0-50.0 The [facility] Comment on above: Order Comment: No: D o not add to previous draw Performed By: #### 8 5499 #### [facility] [address] [place] [id number], [facility] Hemoglobin (Bld) [Mass/Vol] 9.0 g/dL Low 13.0-17.0 The [facility] Comment on above: Order Comment: No: D o not add to previous draw Performed By: #### 8 5499 #### [facility] [address] [place] [id number], [facility] MCH (RBC) [Entitic mass] 26.6 pg Low 27.0-33.0 The [facility] Comment on above: Order Comment: No: D o not add to previous draw Performed By: #### 8 5499 #### [facility] [address] [place] [address], [place] MCHC (RBC) [Mass/Vol] 29.1 g/dL Low 32.0-35.0 The [facility] Comment on above: Order Comment: No: D o not add to previous draw Performed By: #### 8 5499 #### [facility] [address] MCV (RBC) [Entitic vol] 91.4 fL Normal 82.0-98.0 The [facility] Comment on above: Order Comment: No: D o not add to previous draw Performed By: #### 8 5499 #### [facility] [address] [place] [address], [facility] Nucleated RBC/100 WBC (Bld) [Ratio] 0 % Normal 0-0 The [facility] Comment on above: Order Comment: No: D o not add to previous draw Performed By: #### 8 5499 #### [facility] [address] [place] [address], [facility] PLAT CNT 279 10*3/uL Normal 150-400 The [facility] Comment on above: Order Comment: No: D o not add to previous draw Performed By: #### 8 5499 #### [facility] [address] [place] [address], [facility] RBC (Bld) [#/Vol] 3.38 10*6/uL Low 4.20-5.70 [facility] Comment on above: Order Comment: No: D o not add to previous draw Performed By: #### 8 5499 #### [facility] [address] [place] [id number], [place] WBC (Bld) [#/Vol] 6.73 10*3/uL Normal 4.00-10.60 The [facility] Comment on above: Order Comment: No: D o not add to previous draw Performed By: #### 8 5499 #### [facility] [address] [facility] Operative Reporton Operative Report MR#: [id number] I [facility] Pt. Name: [facility] Room #: [id number] Discharge Date: Birthdate: 1960 OPERATIVE REPORT DATE OF SURGERY: 07/19/2020 SURGEON: Nima Wynne MD Operative Note Medical Thoracoscopy, lysis of adhesions, pleural biopsy Procedure Date: 07/19/2020 Procedure: Medical Thoracoscopy, pleural biopsies, lysis of adhesions, and chest tube placement Preoperative Diagnosis: Loculated pleural effusion Post-operative Diagnosis: same Surgeons: Nima Wynne MD Lang Path Therapist: Davis Pham MD Type of Anesthesia: MAC [...] Wynne MD Date Trans: 07/19/2020 02:43 P/ [id number] cc: Jose Juarez D.O. [address] [place] [id number] Normal The [facility] POC GLUCOSE LABon 07-19-2020 Glucose [Mass/Vol] 219 mg/dL High 70-100 The [facility] Comment on above: Performed By: #### 5 7307, [address] #### [facility] [address] [facility] [place] [address], [place] Glucose [Mass/Vol] 152 mg/dL High 70-100 The [facility] Comment on above: Performed By: #### 5 7307, [address]4380 #### [facility] [address] [place] [address], [place] Glucose [Mass/Vol] 183 mg/dL High 70-100 The [facility] Comment on above: Performed By: #### 5 0103 #### [facility] [address] [place] [address], [place] Glucose [Mass/Vol] 206 mg/dL High 70-100 The [facility] Comment on above: Performed By: #### 8 5499 ####[facility] [place] [address], [place] Glucose [Mass/Vol] 179 mg/dL High 70-100 The [facility] Comment on above: Performed By: #### 5 0103 #### [facility] [address] [place] [address], [place] PORTABLE CHEST 1 VIEWon 06-28 PORTABLE CHEST 1 VIEW [facility] Department of Radiology [address] [place] [id number] Patient Name: RASHARD LYMAN : 1960 Sex: M Age: Race: White Pt. Location: [id number] Patient Status: I Ordered Date: 07/19/2020 2:20:00 [...] infiltration Electronically signed: Pedro Baldwin. Transcribed by: [email or web address], User Resident: PEDRO BALDWIN Electronically Signed by: PEDRO BALDWIN @ 07/19/2020 03:03 PM I personally read this/these film(s) with this resident Normal The [facility] Comment on above: Order Comment: Check Chest Tube Position BASIC METABOLIC PANELon 2 Calcium [Mass/Vol] 8.4 mg/dL Low 8.6-10.3 The [facility] Comment on above: Order Comment: No: D o not add to previous draw Performed By: #### 8 [id number] #### [facility] [address] [place] [address], [place] Chloride [Moles/Vol] 105 mmol/L Normal 98-107 The [facility] Comment on above: Order Comment: No: D o not add to previous draw Performed By: #### 8 5499 #### [facility] [address] [place] [address], [place] CO2 [Moles/Vol] 25 mmol/L Normal 21-31 The [facility] Comment on above: Order Comment: No: D o not add to previous draw Performed By: #### 8 5499 #### [facility] [address] [place] [address], [place] Creatinine [Mass/Vol] 4.54 mg/dL High 0.70-1.30 The [facility] Comment on above: Order Comment: No: D o not add to previous draw Performed By: #### 8 5499 #### [facility] [address] [place] [address], [place] eGFR- 16 ml/min/1.73sq m Abnormal >60 The [facility] Comment on above: Order Comment: No: D o not add to previous draw Performed By: #### 8 5499 #### [facility] [address] [place] [address], [place] eGFR- non- 13 ml/min/1.73sq m Abnormal >60 The [facility] Comment on above: Order Comment: No: D o not add to previous draw Performed By: #### 8 5499 #### [facility] [address] [place] [address], [place] Glucose [Mass/Vol] 118 mg/dL High 70-100 The [facility] Comment on above: Order Comment: No: D o not add to previous draw Performed By: #### 8 5499 #### [facility] [address] [place] [address], [facility] Potassium [Moles/Vol] 4.5 mmol/L Normal 3.5-5.1 The [facility] Comment on above: Order Comment: No: D o not add to previous draw Performed By: #### 8 5499 #### [facility] [address] Sodium [Moles/Vol] 137 mmol/L Normal 136-145 [facility] Comment on above: Order Comment: No: D o not add to previous draw Performed By: #### 8 5499 #### [facility] [address] [facility] Urea nitrogen [Mass/Vol] 40 mg/dL High 7-25 [facility] Comment on above: Order Comment: No: D o not add to previous draw Performed By: #### 8 [id number] #### [facility] [address] [facility] [place] [address], [facility] CBC W/DIFFon 07-18-2020 ABS IMM GRANS 0.1 10*3/uL Normal 0.0-0.2 The [facility] Comment on above: Order Comment: No: D o not add to previous draw Performed By: #### 8 [id number] #### [facility] 3000 [facility]. 04 [address] ABS NEUTROPHILS 5.0 10*3/uL Normal 1.6-7.6 [facility] Comment on above: Order Comment: No: D o not add to previous draw Performed By: #### 8 [id number] #### [facility] [address] [place] [address], [facility] Basophils (Bld) [#/Vol] 0.0 10*3/uL Normal 0.0-0.2 [facility] Comment on above: Order Comment: No: D o not add to previous draw Performed By: #### 8 [id number] #### [facility] [address] [place] [address], [facility] Basophils/100 WBC (Bld) 0.4 % Normal 0.0-1.0 [facility] Comment on above: Order Comment: No: D o not add to previous draw Performed By: #### 8 [id number] #### [facility] [address] [place] [address], [facility] Eosinophils (Bld) [#/Vol] 0.6 10*3/uL High 0.0-0.5 [facility] Comment on above: Order Comment: No: D o not add to previous draw Performed By: #### 8 [id number] #### [facility] [address] [place] [address], [facility] Eosinophils/100 WBC (Bld) 6.8 % High 0.0-6.0 [facility] Comment on above: Order Comment: No: D o not add to previous draw Performed By: #### 8 [id number] #### [facility] [address] [place] [address], [facility] Erythrocyte distribution width (RBC) [Ratio] 14.8 % Normal 11.5-15.0 [facility] Comment on above: Order Comment: No: D o not add to previous draw Performed By: #### 8 [id number] #### [facility] [address] [place] [address], [facility] Hematocrit (Bld) [Volume fraction] 31.9 % Low 39.0-50.0 [facility] Comment on above: Order Comment: No: D o not add to previous draw Performed By: #### 8 [id number] #### [facility] [address] [place] [address], [facility] Hemoglobin (Bld) [Mass/Vol] 9.4 g/dL Low 13.0-17.0 [facility] Comment on above: Order Comment: No: D o not add to previous draw Performed By: #### 8 [id number] #### [facility] [address] [place] [address], [facility] IMMATURE GRANS 1.7 % High 0.0-1.0 [facility] Comment on above: Order Comment: No: D o not add to previous draw Performed By: #### 8 [id number] #### [facility] [address] [place] [address], [facility] Lymphocytes (Bld) [#/Vol] 1.2 10*3/uL Normal 1.2-4.0 The [facility] Comment on above: Order Comment: No: D o not add to previous draw Performed By: #### 8 [id number] #### [facility] [address] [place] [address], [facility] Lymphocytes/100 WBC (Bld) 14.8 % Low 20.0-45.0 The [facility] Comment on above: Order Comment: No: D o not add to previous draw Performed By: #### 8 [id number] #### [facility] [address] [place] [address], [facility] MCH (RBC) [Entitic mass] 26.9 pg Low 27.0-33.0 [facility] Comment on above: Order Comment: No: D o not add to previous draw Performed By: #### 8 [id number] #### [facility] [address] [place] [address], [facility] MCHC (RBC) [Mass/Vol] 29.5 g/dL Low 32.0-35.0 [facility] Comment on above: Order Comment: No: D o not add to previous draw Performed By: #### 8 [id number] #### [facility] [address] [place] [id number], [facility] MCV (RBC) [Entitic vol] 91.1 fL Normal 82.0-98.0 [facility] Comment on above: Order Comment: No: D o not add to previous draw Performed By: #### 8 [id number] #### [facility] [address] [place] [address], [facility] Monocytes (Bld) [#/Vol] 1.1 10*3/uL High 0.1-1.0 [facility] Comment on above: Order Comment: No: D o not add to previous draw Performed By: #### 8 [id number] #### [facility] [address] [place] [address], [facility] MONOS 13.4 % High 5.0-12.0 The [facility] Comment on above: Order Comment: No: D o not add to previous draw Performed By: #### 8 [id number] #### [facility] [address] [place] [address], [facility] Neutrophils/100 WBC (Bld) 62.9 % Normal 40.0-72.0 The [facility] Comment on above: Order Comment: No: D o not add to previous draw Performed By: #### 8 [id number] #### [facility] [address] [place] [address], [facility] Nucleated RBC/100 WBC (Bld) [Ratio] 0 % Normal 0-0 The [facility] Comment on above: Order Comment: No: D o not add to previous draw Performed By: #### 8 [id number] #### [facility] [address] [place] [id number], [facility] PLAT CNT 296 10*3/uL Normal 150-400 The [facility] Comment on above: Order Comment: No: D o not add to previous draw Performed By: #### 8 [id number] #### [facility] [address] [place] [id number], [facility] RBC (Bld) [#/Vol] 3.50 10*6/uL Low 4.20-5.70 The [facility] Comment on above: Order Comment: No: D o not add to previous draw Performed By: #### 8 [id number] #### [facility] [address] [place] [address], [place] WBC (Bld) [#/Vol] 8.03 10*3/uL Normal 4.00-10.60 [facility] Comment on above: Order Comment: No: D o not add to previous draw Performed By: #### 8 [id number] #### [facility] [address] [place] [address], [place] POC GLUCOSE LABon 07-18-2020 Glucose [Mass/Vol] 192 mg/dL High 70-100 The [facility] Comment on above: Performed By: #### 5 7307, 58122 #### [facility] [address] [place] [address], [place] Glucose [Mass/Vol] 153 mg/dL High 70-100 The [facility] Comment on above: Performed By: #### 5 7307, 78960 #### [facility] [address] [place] [address], [place] Glucose [Mass/Vol] 80 mg/dL Normal 70-100 The [facility] Comment on above: Performed By: #### 5 7307, 87765 #### [facility] [address] [place] [address], [place] Glucose [Mass/Vol] 48 mg/dL Critically low 70-100 Th e [facility] Comment on above: Order Comment: Left Peural Effusion Performed By: #### 8 [id number] ####[facility] [place] [address], [place] Glucose [Mass/Vol] 120 mg/dL High 70-100 The [facility] Comment on above: Performed By: #### 5 0103 #### [facility] [address] [place] [address], [place] Glucose [Mass/Vol] 112 mg/dL High 70-100 The [facility] Comment on above: Performed By: #### 5 7307, [id number] #### [facility] [address] [place], [place] [id number] [place] [address] POC SARS COV2 ANTIGEN NEGATI VEon 07-18-2020 POC SARS COV2 ANTIGEN NEG CANCELED Normal NEGATIVE The [facility] Comment on above: Result Comment: The released value NEGATIVE was canceled by ULISES on 07/19/2020 07:11 Performed By: #### 3 1943 #### [facility] [address] [place], [place] [id number] [place] [address] POC SARS COV2 ANTIGEN NEG Negative Normal NEGATIVE The [facility] Comment on above: Result Comment: Nega [...] Performed By: #### 8 [id number] #### [facility] [address] [place], [place] [id number] [place] [address] BASIC METABOLIC PANELon 06-28 Calcium [Mass/Vol] 8.2 mg/dL Low 8.6-10.3 The [facility] Comment on above: Order Comment: No: D o not add to previous draw Performed By: #### 3 1943 #### [facility] [address] [place] [address], [place] Chloride [Moles/Vol] 101 mmol/L Normal 98-107 The [facility] Comment on above: Order Comment: No: D o not add to previous draw Performed By: #### 3 1943 #### [facility] [address] [place] [address], [place] CO2 [Moles/Vol] 25 mmol/L Normal 21-31 The [facility] Comment on above: Order Comment: No: D o not add to previous draw Performed By: #### 3 1943 #### [facility] [address] [place] [address], [place] Creatinine [Mass/Vol] 3.64 mg/dL High 0.70-1.30 The [facility] Comment on above: Order Comment: No: D o not add to previous draw Performed By: #### 3 1943 #### [facility] [address] [place] [address], [place] eGFR- 21 ml/min/1.73sq m Abnormal >60 The [facility] Comment on above: Order Comment: No: D o not add to previous draw Performed By: #### 3 1943 #### [facility] [address] [place] [address], [place] eGFR- non- 17 ml/min/1.73sq m Abnormal >60 The [facility] Comment on above: Order Comment: No: D o not add to previous draw Performed By: #### 3 1943 #### [facility] [address] [place] [address], [place] Glucose [Mass/Vol] 124 mg/dL High 70-100 The [facility] Comment on above: Order Comment: No: D o not add to previous draw Performed By: #### 3 1943 #### [facility] [address] [place] [address], [place] Potassium [Moles/Vol] 4.3 mmol/L Normal 3.5-5.1 The [facility] Comment on above: Order Comment: No: D o not add to previous draw Performed By: #### 3 1943 #### [facility] [address] [place] [address], [facility] Sodium [Moles/Vol] 134 mmol/L Low 136-145 The [facility] Comment on above: Order Comment: No: D o not add to previous draw Performed By: #### 3 1943 #### [facility] [address] Urea nitrogen [Mass/Vol] 36 mg/dL High 7-25 [facility] Comment on above: Order Comment: No: D o not add to previous draw Performed By: #### 3 1943 #### [facility] [address] [place] [address], [facility] CBC W/DIFFon 07-17-2020 ABS IMM GRANS 0.2 10*3/uL Normal 0.0-0.2 [facility] Comment on above: Order Comment: No: D o not add to previous draw Performed By: #### 8 [id number] #### [facility] [address] ABS NEUTROPHILS 5.8 10*3/uL Normal 1.6-7.6 [facility] Comment on above: Order Comment: No: D o not add to previous draw Performed By: #### 8 [id number] #### [facility] [address] [place] [address], [facility] Basophils (Bld) [#/Vol] 0.1 10*3/uL Normal 0.0-0.2 [facility] Comment on above: Order Comment: No: D o not add to previous draw Performed By: #### 8 [id number] #### [facility] [address] [place] [address], [facility] Basophils/100 WBC (Bld) 0.6 % Normal 0.0-1.0 [facility] Comment on above: Order Comment: No: D o not add to previous draw Performed By: #### 8 [id number] #### [facility] [address] [place] [address], [facility] Eosinophils (Bld) [#/Vol] 0.6 10*3/uL High 0.0-0.5 [facility] Comment on above: Order Comment: No: D o not add to previous draw Performed By: #### 8 5499 #### [facility] [address] [place] [address], [facility] Eosinophils/100 WBC (Bld) 7.0 % High 0.0-6.0 [facility] Comment on above: Order Comment: No: D o not add to previous draw Performed By: #### 8 [id number] #### [facility] [address] Erythrocyte distribution width (RBC) [Ratio] 14.8 % Normal 11.5-15.0 [facility] Comment on above: Order Comment: No: D o not add to previous draw Performed By: #### 8 [id number] #### [facility] [address] [place] [address], [facility] Hematocrit (Bld) [Volume fraction] 30.0 % Low 39.0-50.0 [facility] Comment on above: Order Comment: No: D o not add to previous draw Performed By: #### 8 [id number] #### [facility] [address] [place] [address], [facility] Hemoglobin (Bld) [Mass/Vol] 9.2 g/dL Low 13.0-17.0 [facility] Comment on above: Order Comment: No: D o not add to previous draw Performed By: #### 8 [id number] #### [facility] [address] [place] [id number], [facility] IMMATURE GRANS 1.7 % High 0.0-1.0 [facility] Comment on above: Order Comment: No: D o not add to previous draw Performed By: #### 8 [id number] #### [facility] [address] [place] [address], [facility] Lymphocytes (Bld) [#/Vol] 1.3 10*3/uL Normal 1.2-4.0 The [facility] Comment on above: Order Comment: No: D o not add to previous draw Performed By: #### 8 [id number] #### [facility] [address] [place] [address], [facility] Lymphocytes/100 WBC (Bld) 14.3 % Low 20.0-45.0 The [facility] Comment on above: Order Comment: No: D o not add to previous draw Performed By: #### 8 [id number] #### [facility] [address] [place] [id number], [facility] MCH (RBC) [Entitic mass] 27.3 pg Normal 27.0-33.0 The [facility] Comment on above: Order Comment: No: D o not add to previous draw Performed By: #### 8 [id number] #### [facility] [address] [place] [address], [facility] MCHC (RBC) [Mass/Vol] 30.7 g/dL Low 32.0-35.0 The [facility] Comment on above: Order Comment: No: D o not add to previous draw Performed By: #### 8 [id number] #### [facility] [address] [place] [id number], [facility] MCV (RBC) [Entitic vol] 89.0 fL Normal 82.0-98.0 The [facility] Comment on above: Order Comment: No: D o not add to previous draw Performed By: #### 8 [id number] #### [facility] [address] [place] [id number], [facility] Monocytes (Bld) [#/Vol] 1.0 10*3/uL Normal 0.1-1.0 [facility] Comment on above: Order Comment: No: D o not add to previous draw Performed By: #### 8 [id number] #### [facility] [address] [place] [address], [facility] MONOS 10.9 % Normal 5.0-12.0 The [facility] Comment on above: Order Comment: No: D o not add to previous draw Performed By: #### 8 [id number] #### [facility] [address] [place] [address], [facility] Neutrophils/100 WBC (Bld) 65.5 % Normal 40.0-72.0 The [facility] Comment on above: Order Comment: No: D o not add to previous draw Performed By: #### 8 [id number] #### [facility] [address] [place] [address], [facility] Nucleated RBC/100 WBC (Bld) [Ratio] 0 % Normal 0-0 [facility] Comment on above: Order Comment: No: D o not add to previous draw Performed By: #### 8 [id number] #### [facility] [address] [place] [address], [facility] PLAT CNT 293 10*3/uL Normal 150-400 The [facility] Comment on above: Order Comment: No: D o not add to previous draw Performed By: #### 8 [id number] #### [facility] [address] [place] [address], [facility] RBC (Bld) [#/Vol] 3.37 10*6/uL Low 4.20-5.70 [facility] Comment on above: Order Comment: No: D o not add to previous draw Performed By: #### 8 [id number] #### [facility] [address] [place] [address], [place] WBC (Bld) [#/Vol] 8.86 10*3/uL Normal 4.00-10.60 The [facility] Comment on above: Order Comment: No: D o not add to previous draw Performed By: #### 8 [id number] #### [facility] [address] [place] [address], [place] POC GLUCOSE LABon 07-17-2020 Glucose [Mass/Vol] 101 mg/dL High 70-100 The [facility] Comment on above: Performed By: #### 5 7307, 35286 #### [facility] [address] [place] [address], [place] Glucose [Mass/Vol] 76 mg/dL Normal 70-100 The [facility] Comment on above: Performed By: #### 5 7307, 15494 #### [facility] [address] [place] [address], [place] Glucose [Mass/Vol] 75 mg/dL Normal 70-100 The [facility] Comment on above: Performed By: #### 8 [id number] ####[facility] [place] [address], [place] Glucose [Mass/Vol] 198 mg/dL High 70-100 The [facility] Comment on above: Performed By: #### 8 [id number] ####[facility] [place] [address], [place] Glucose [Mass/Vol] 205 mg/dL High 70-100 The [facility] Comment on above: Performed By: #### 3 0318 #### [facility] [address] [place] [address], [place] Glucose [Mass/Vol] 187 mg/dL High 70-100 The [facility] Comment on above: Performed By: #### 5 7307, 78631 #### [facility] [address] [place] [address], [place] Glucose [Mass/Vol] 131 mg/dL High 70-100 The [facility] Comment on above: Performed By: #### 8 [id number] #### [facility] [address] [place] [address], [place] Glucose [Mass/Vol] 75 mg/dL Normal 70-100 The [facility] Comment on above: Performed By: #### 5 0103 #### [facility] [address] [place] [address], [place] Glucose [Mass/Vol] 69 mg/dL Low 70-100 The [facility] Comment on above: Performed By: #### 8 [id number] ####[facility] [place] [address], [facility] BASIC METABOLIC PANELon 03-2 -2020 Calcium [Mass/Vol] 8.4 mg/dL Low 8.6-10.3 [facility] Comment on above: Order Comment: No: D o not add to previous draw Performed By: #### 3 1943 #### [facility] [address] [place] [address], [facility] Chloride [Moles/Vol] 105 mmol/L Normal 98-107 The [facility] Comment on above: Order Comment: No: D o not add to previous draw Performed By: #### 3 1943 #### [facility] [address] [place] [address], [facility] CO2 [Moles/Vol] 24 mmol/L Normal 21-31 The [facility] Comment on above: Order Comment: No: D o not add to previous draw Performed By: #### 3 1943 #### [facility] [address] [place] [address], [facility] Creatinine [Mass/Vol] 4.14 mg/dL High 0.70-1.30 The [facility] Comment on above: Order Comment: No: D o not add to previous draw Performed By: #### 3 1943 #### [facility] [address] [place] [address], [facility] eGFR- 18 ml/min/1.73sq m Abnormal >60 The [facility] Comment on above: Order Comment: No: D o not add to previous draw Performed By: #### 3 1943 #### [facility] [address] [place] [address], [facility] eGFR- non- 15 ml/min/1.73sq m Abnormal >60 The [facility] Comment on above: Order Comment: No: D o not add to previous draw Performed By: #### 3 1943 #### [facility] [address] [place] [address], [place] Glucose [Mass/Vol] 127 mg/dL High 70-100 The [facility] Comment on above: Order Comment: No: D o not add to previous draw Performed By: #### 3 1943 #### [facility] [address] [place] [address], [place] Potassium [Moles/Vol] 4.0 mmol/L Normal 3.5-5.1 The [facility] Comment on above: Order Comment: No: D o not add to previous draw Performed By: #### 3 1943 #### [facility] [address] [place] [address], [place] Sodium [Moles/Vol] 136 mmol/L Normal 136-145 The [facility] Comment on above: Order Comment: No: D o not add to previous draw Performed By: #### 3 1943 #### [facility] [address] [place] [address], [place] Urea nitrogen [Mass/Vol] 35 mg/dL High 7-25 The [facility] Comment on above: Order Comment: No: D o not add to previous draw Performed By: #### 3 1943 #### [facility] [address] [place] [address], [place] CBC COMPLETE BLOOD COUNTon 0 - Erythrocyte distribution width (RBC) [Ratio] 14.6 % Normal 11.5-15.0 The [facility] Comment on above: Order Comment: No: D o not add to previous draw Performed By: #### 8 [id number] #### [facility] [address] [place] [address], [facility] Hematocrit (Bld) [Volume fraction] 31.8 % Low 39.0-50.0 The [facility] Comment on above: Order Comment: No: D o not add to previous draw Performed By: #### 8 [id number] #### [facility] [address] [place] [address], [facility] Hemoglobin (Bld) [Mass/Vol] 9.7 g/dL Low 13.0-17.0 The [facility] Comment on above: Order Comment: No: D o not add to previous draw Performed By: #### 8 [id number] #### [facility] [address] [place] [address], [facility] MCH (RBC) [Entitic mass] 27.2 pg Normal 27.0-33.0 The [facility] Comment on above: Order Comment: No: D o not add to previous draw Performed By: #### 8 [id number] #### [facility] [address] [place] [address], [facility] MCHC (RBC) [Mass/Vol] 30.5 g/dL Low 32.0-35.0 [facility] Comment on above: Order Comment: No: D o not add to previous draw Performed By: #### 8 [id number] #### [facility] [address] [place] [address], [facility] MCV (RBC) [Entitic vol] 89.3 fL Normal 82.0-98.0 [facility] Comment on above: Order Comment: No: D o not add to previous draw Performed By: #### 8 [id number] #### [facility] [address] [place] [id number], [facility] Nucleated RBC/100 WBC (Bld) [Ratio] 0 % Normal 0-0 [facility] Comment on above: Order Comment: No: D o not add to previous draw Performed By: #### 8 [id number] #### [facility] [address] [place] [address], [place] PLAT CNT 321 10*3/uL Normal 150-400 [facility] Comment on above: Order Comment: No: D o not add to previous draw Performed By: #### 8 [id number] #### [facility] [address] [place] [address], [place] RBC (Bld) [#/Vol] 3.56 10*6/uL Low 4.20-5.70 [facility] Comment on above: Order Comment: No: D o not add to previous draw Performed By: #### 8 [id number] #### [facility] [address] [place] [address], [place] WBC (Bld) [#/Vol] 8.88 10*3/uL Normal 4.00-10.60 [facility] Comment on above: Order Comment: No: D o not add to previous draw Performed By: #### 8 [id number] #### [facility] [address] [place] [address], [place] POC GLUCOSE LABon 07-16-2020 Glucose [Mass/Vol] 94 mg/dL Normal 70-100 [facility] Comment on above: Performed By: #### 5 0103 #### [facility] [address] [place] [address], [place] Glucose [Mass/Vol] 62 mg/dL Low 70-100 The [facility] Comment on above: Performed By: #### 5 7307, 87050 #### [facility] [address] [place] [address], [place] Glucose [Mass/Vol] 80 mg/dL Normal 70-100 [facility] Comment on above: Performed By: #### 5 7307, 93639 #### [facility] [address] [place] [address], [place] Glucose [Mass/Vol] 99 mg/dL Normal 70-100 The [facility] Comment on above: Performed By: #### 8 [id number] ####[facility] [place] [address], [facility] Glucose [Mass/Vol] 203 mg/dL High 70-100 The [facility] Comment on above: Performed By: #### 8 [id number] ####[facility] [place] [address], [facility] Glucose [Mass/Vol] 151 mg/dL High 70-100 [facility] Comment on above: Performed By: #### 5 7307, 55108 #### [facility] [address] [place] [address], [facility] ANAon 07-15-2020 KILLIAN SCREEN <1:40 Normal <1:40,1:40 [facility] Comment on above: Order Comment: No: D o not add to previous draw Performed By: #### 8 [id number] #### [facility] [address] [place] [address], [facility] ANCA IGG WITH REFLEX [id number] on 07-15-2020 ANCA <1:20 Normal <1:20 [facility] Comment on above: Order Comment: No: [...] collagen vascular disease or arthritis. Performed By: [facility] [address] [place] [address] [employer] Systems Drafting Officer: Emi Campbell MD BASIC METABOLIC PANELon 06-27 Calcium [Mass/Vol] 8.5 mg/dL Low 8.6-10.3 [facility] Comment on above: Order Comment: No: D o not add to previous draw Performed By: #### 8 [id number] #### [facility] [address] [place] [address], [facility] Chloride [Moles/Vol] 103 mmol/L Normal 98-107 [facility] Comment on above: Order Comment: No: D o not add to previous draw Performed By: #### 8 [id number] #### [facility] [address] [place] [address], [place] CO2 [Moles/Vol] 23 mmol/L Normal 21-31 [facility] Comment on above: Order Comment: No: D o not add to previous draw Performed By: #### 8 [id number] #### [facility] [address] [place] [address], [facility] Creatinine [Mass/Vol] 4.38 mg/dL High 0.70-1.30 [facility] Comment on above: Order Comment: No: D o not add to previous draw Performed By: #### 8 [id number] #### [facility] [address] [place] [address], [facility] eGFR- 17 ml/min/1.73sq m Abnormal >60 [facility] Comment on above: Order Comment: No: D o not add to previous draw Performed By: #### 8 [id number] #### [facility] [address] [place] [address], [facility] eGFR- non- 14 ml/min/1.73sq m Abnormal >60 [facility] Comment on above: Order Comment: No: D o not add to previous draw Performed By: #### 8 [id number] #### [facility] [address] [place] [address], [place] Glucose [Mass/Vol] 154 mg/dL High 70-100 [facility] Comment on above: Order Comment: No: D o not add to previous draw Performed By: #### 8 [id number] #### [facility] [address] [place] [address], [place] Potassium [Moles/Vol] 4.5 mmol/L Normal 3.5-5.1 [facility] Comment on above: Order Comment: No: D o not add to previous draw Performed By: #### 8 [id number] #### [facility] [address] Sodium [Moles/Vol] 135 mmol/L Low 136-145 [facility] Comment on above: Order Comment: No: D o not add to previous draw Performed By: #### 8 [id number] #### [facility] [address] [facility] Urea nitrogen [Mass/Vol] 32 mg/dL High 7-25 [facility] Comment on above: Order Comment: No: D o not add to previous draw Performed By: #### 8 [id number] #### [facility] [address] C REACTIVE PROTEINon 021 CRP [Mass/Vol] 138.0 mg/L High 0.0-7.0 [facility] Comment on above: Order Comment: FROM [id number] Performed By: #### 8 [id number] #### [facility] [address] [facility]. [address] CBC W/DIFFon 07-15-2020 ABS IMM GRANS 0.1 10*3/uL Normal 0.0-0.2 [facility] Comment on above: Performed By: #### 5 0103 #### [facility] [address] [facility]. [address] ABS NEUTROPHILS 7.3 10*3/uL Normal 1.6-7.6 [facility] Comment on above: Performed By: #### 5 0103 #### [facility] [address] [facility] [place] [address], [facility] Basophils (Bld) [#/Vol] 0.0 10*3/uL Normal 0.0-0.2 [facility] Comment on above: Performed By: #### 5 0103 #### [facility] [address] [facility]. [address] Basophils/100 WBC (Bld) 0.3 % Normal 0.0-1.0 [facility] Comment on above: Performed By: #### 5 0103 #### [facility] [address] [place] [address], [facility] Eosinophils (Bld) [#/Vol] 0.5 10*3/uL Normal 0.0-0.5 [facility] Comment on above: Performed By: #### 5 0103 #### [facility] [address] [place] [address], [facility] Eosinophils/100 WBC (Bld) 5.1 % Normal 0.0-6.0 [facility] Comment on above: Performed By: #### 5 0103 #### [facility] [address] Erythrocyte distribution width (RBC) [Ratio] 14.9 % Normal 11.5-15.0 [facility] Comment on above: Performed By: #### 5 0103 #### [facility] [address] Hematocrit (Bld) [Volume fraction] 33.0 % Low 39.0-50.0 [facility] Comment on above: Performed By: #### 5 0103 #### [facility] [address] Hemoglobin (Bld) [Mass/Vol] 9.9 g/dL Low 13.0-17.0 [facility] Comment on above: Performed By: #### 5 0103 #### [facility] [address] [place] [address], [facility] IMMATURE GRANS 1.4 % High 0.0-1.0 [facility] Comment on above: Performed By: #### 5 0103 #### [facility] [address] [place] [address], [facility] Lymphocytes (Bld) [#/Vol] 1.1 10*3/uL Low 1.2-4.0 [facility] Comment on above: Performed By: #### 5 0103 #### [facility] [address] [facility] [place] [address], [facility] Lymphocytes/100 WBC (Bld) 11.0 % Low 20.0-45.0 [facility] Comment on above: Performed By: #### 5 0103 #### [facility] [address] [place] [address], [facility] MCH (RBC) [Entitic mass] 27.0 pg Normal 27.0-33.0 [facility] Comment on above: Performed By: #### 5 0103 #### [facility] [address] MCHC (RBC) [Mass/Vol] 30.0 g/dL Low 32.0-35.0 [facility] Comment on above: Performed By: #### 5 0103 #### [facility] [address] [place] [address], [facility] MCV (RBC) [Entitic vol] 90.2 fL Normal 82.0-98.0 [facility] Comment on above: Performed By: #### 5 0103 #### [facility] [address] [place] [address], [facility] Monocytes (Bld) [#/Vol] 1.1 10*3/uL High 0.1-1.0 [facility] Comment on above: Performed By: #### 5 3 #### [facility] [address] [place] [address], [facility] MONOS 10.9 % Normal 5.0-12.0 [facility] Comment on above: Performed By: #### 5 3 #### [facility] [address] [facility] [place] [address], [facility] Neutrophils/100 WBC (Bld) 71.3 % Normal 40.0-72.0 [facility] Comment on above: Performed By: #### 5 0103 #### [facility] [address] [place] [address], [facility] Nucleated RBC/100 WBC (Bld) [Ratio] 0 % Normal 0-0 [facility] Comment on above: Performed By: #### 5 0103 #### [facility] [address] [place] [address], [place] PLAT CNT 317 10*3/uL Normal 150-400 [facility] Comment on above: Performed By: #### 5 0103 #### [facility] [address] [place] [id number], [facility] RBC (Bld) [#/Vol] 3.66 10*6/uL Low 4.20-5.70 [facility] Comment on above: Performed By: #### 5 0103 #### [facility] [address] [place] [address], [facility] WBC (Bld) [#/Vol] 10.23 10*3/uL Normal 4.00-10.60 [facility] Comment on above: Performed By: #### 5 0103 #### [facility] [address] [place] [address], [facility] COMPLEMENT 307-15-2020 COMPLEMENT 3 108 mg/dL Normal 79-152 [facility] Comment on above: Order Comment: No: D o not add to previous draw Performed By: #### 8 [id number] #### [facility] [address] [place] [address], [place] COMPLEMENT 407-15-2020 COMPLEMENT 4 31 mg/dL Normal 16-38 [facility] Comment on above: Order Comment: No: D o not add to previous draw Performed By: #### 8 [id number] #### [facility] [address] [place] [address], [place] GLOMR BASMT MEMBRon 07-16-19 21 GLOMR BASMT MBRN Negative Abnormal NEGATIVE [facility] Comment on above: Order Comment: No: D o not add to previous draw Result Comment: Note : The performance characteristics of this test were validated by the [facility] Immunology laboratory. It has not been cleared or approved by the U.S. Food and Drug Administration. The results are not intended to be used as the sole means for clinical diagnosis or patient management decisions. [facility]'s Immunology lab is authorized under CLIA to perform high-complexity testing. Performed By: #### 8 [id number] #### [facility] [address] [place] [address], [facility] POC GLUCOSE LABon 07-15-2020 Glucose [Mass/Vol] 107 mg/dL High 70-100 [facility] Comment on above: Performed By: #### 5 7307, 10083 #### [facility] [address] [facility] [place] [address], [facility] Glucose [Mass/Vol] 84 mg/dL Normal 70-100 [facility] Comment on above: Performed By: #### 5 0103 #### [facility] [address] [facility] [place] [address], [facility] Glucose [Mass/Vol] 164 mg/dL High 70-100 [facility] Comment on above: Performed By: #### 8 [id number] ####[facility] [facility] [place] [address], [place] Glucose [Mass/Vol] 141 mg/dL High 70-100 [facility] Comment on above: Performed By: #### 5 7307, 98259 #### [facility] [address] [facility] [place] [address], [facility] PORTABLE CHEST 1 VIEWon 06-27 PORTABLE CHEST 1 VIEW [facility] Department of Radiology [address] [place] [id number] Patient Name: RASHARD LYMAN : 1960 Sex: M Age: Race: White Pt. Location: [address] [place] [address] Patient Status: I Ordered Date: 07/15/2020 7:00:00 [...] exam. Electronically signed: Nir Swartz. Transcribed by: [email or web address], User Resident: Electronically Signed by: NIR SWARTZ @ 07/15/2020 07:34 AM Normal [facility] Comment on above: Order Comment: evalu ate for Effusion *AFB CULTUREon 07-14-2020 *AFB CULTURE Clinical Report: (D) Specimen/Source: FLUID/PLEURAL FLUID Collected: 07/14/2020 13:03 Status: Final Last Updated: 08/26/2020 08:52 (1) Left Peural Effusion AFB (Final) No Acid Fast Bacilli Seen CULT RES (Final) No growth after 42 days of incubation Normal [facility] Comment on above: Order Comment: Left Peural Effusion Performed By: #### 8 [id number] #### [facility] [address] *ANAEROBIC CULTUREon 021 *ANAEROBIC CULTURE Clinical Report: (D) Specimen/Source: FLUID/PLEURAL FLUID Collected: 07/14/2020 13:03 Status: Final Last Updated: 07/19/2020 08:08 (1) Left Peural Effusion CULT RES (Final) No Anaerobes Isolated 5 Days Normal [facility] Comment on above: Order Comment: Left Peural Effusion Performed By: #### 8 [id number] #### [facility] [address] *BODY FLUID CULTUREon 2020 *BODY FLUID CULTURE Clinical Report: (D) Specimen/Source: FLUID/PLEURAL FLUID Collected: 07/14/2020 13:03 Status: Final Last Updated: 07/19/2020 07:53 (1) Left Peural Effusion GRAM (Final) Polys PRESENT No Bacteria Seen CYTOSPUN (Final) This Gram Stain was done on a cytocentrifuged specimen CULT RES (Final) No Growth Day 5 Normal [facility] Comment on above: Order Comment: Left Peural Effusion Performed By: #### 3 0318 #### [facility] [address] *FUNGAL CULTUREon 07-14-2020 *FUNGAL CULTURE Clinical Report: (D) Specimen/Source: FLUID/PLEURAL FLUID Collected: 07/14/2020 13:03 Status: Final Last Updated: 08/15/2020 08:41 (1) Left Peural Effusion FS (Final) No Yeast or Fungal Elements Seen CULT RES (Final) Culture negative for fungus Normal [facility] Comment on above: Order Comment: Left Peural Effusion Performed By: #### 8 [id number] #### [facility] [address] *VIRAL NON RESPIRATORY CULTU REon 07-14-2020 Bacteria identified Cx Nom (Unsp spec) Normal [facility] Comment on above: Order Comment: Left [...] Linked Virus Inducible S. [place] Normal [facility] Comment on above: Order Comment: Left Peural Effusion Result Comment: Test Performed by [employer] [address] [address] - Released 07/20/2020 14:10 Result changed by IF on 07/17/2020 14:17. The previous value was Test Performed by [facility] [address] [place] [phone].. Result changed by IF on 07/18/2020 12:17. The previous value was Test Performed by [facility] [address] [place] [address] [phone].. Result changed by IF on 07/20/2020 14:10. The previous value was Test Performed by [facility] [address] [place] [address] [phone].. REPORT STATUS FINAL 07/20/2020 Normal [facility] Comment on above: Order Comment: Left Peural Effusion Result Comment: Resu lt changed by IF on 07/20/2020 14:10. The previous value was Preliminary. APTTon 07-14-2020 aPTT Coag (Bld) [Time] 41.7 s High 25.0-35.0 [facility] Comment on above: Order Comment: No: [...] Performed By: #### 8 [id number] #### [facility] [address] [place] [address], [facility] aPTT Coag (Bld) [Time] 44.9 s High 25.0-35.0 [facility] Comment on above: Order Comment: No: [...] THIS PURPOSE. Performed By: #### 5 7307, 59694 #### [facility] [address] [place] [address], [facility] BASIC METABOLIC PANELon 03- Calcium [Mass/Vol] 8.6 mg/dL Normal 8.6-10.3 [facility] Comment on above: Order Comment: No: D o not add to previous draw Performed By: #### 8 [id number] #### [facility] [address] [place] [address], [facility] Chloride [Moles/Vol] 102 mmol/L Normal 98-107 [facility] Comment on above: Order Comment: No: D o not add to previous draw Performed By: #### 8 [id number] #### [facility] [address] [place] [address], [place] CO2 [Moles/Vol] 24 mmol/L Normal 21-31 [facility] Comment on above: Order Comment: No: D o not add to previous draw Performed By: #### 8 [id number] #### [facility] [address] [place] [address], [place] Creatinine [Mass/Vol] 3.44 mg/dL High 0.70-1.30 [facility] Comment on above: Order Comment: No: D o not add to previous draw Performed By: #### 8 [id number] #### [facility] [address] [place] [address], [place] eGFR- 22 ml/min/1.73sq m Abnormal >60 [facility] Comment on above: Order Comment: No: D o not add to previous draw Performed By: #### 8 [id number] #### [facility] [address] [place] [address], [place] eGFR- non- 18 ml/min/1.73sq m Abnormal >60 [facility] Comment on above: Order Comment: No: D o not add to previous draw Performed By: #### 8 [id number] #### [facility] [address] [place] [address], [place] Glucose [Mass/Vol] 355 mg/dL High 70-100 [facility] Comment on above: Order Comment: No: D o not add to previous draw Performed By: #### 8 [id number] #### [facility] [address] [place] [address], [place] Potassium [Moles/Vol] 4.6 mmol/L Normal 3.5-5.1 [facility] Comment on above: Order Comment: No: D o not add to previous draw Performed By: #### 8 [id number] #### [facility] [address] [place] [address], [place] Sodium [Moles/Vol] 133 mmol/L Low 136-145 [facility] Comment on above: Order Comment: No: D o not add to previous draw Performed By: #### 8 [id number] #### [facility] [address] [place] [address], [facility] Urea nitrogen [Mass/Vol] 27 mg/dL High 7-25 [facility] Comment on above: Order Comment: No: D o not add to previous draw Performed By: #### 8 [id number] #### [facility] [address] [place] [address], [facility] BNP (B-TYPE NATRIURETIC PEPT CIERRA)on 07-14-2020 Natriuretic peptide B (Bld) [Mass/Vol] 19 pg/mL Normal 0-100 [facility] Comment on above: Order Comment: Left Peural Effusion Result Comment: Give n the appropriate clinical setting a BNP result of >100 pg/mL indicates congestive heart failure. Performed By: #### 3 0318 #### [facility] [address] CBC COMPLETE BLOOD COUNTon 0 07-14-2020 Erythrocyte distribution width (RBC) [Ratio] 14.6 % Normal 11.5-15.0 [facility] Comment on above: Order Comment: No: D o not add to previous draw Performed By: #### 8 [id number] #### [facility] [address] [place] [address], [facility] Hematocrit (Bld) [Volume fraction] 35.3 % Low 39.0-50.0 [facility] Comment on above: Order Comment: No: D o not add to previous draw Performed By: #### 8 [id number] #### [facility] [address] [place] [address], [facility] Hemoglobin (Bld) [Mass/Vol] 11.1 g/dL Low 13.0-17.0 [facility] Comment on above: Order Comment: No: D o not add to previous draw Performed By: #### 8 [id number] #### [facility] [address] [place] [address], [facility] MCH (RBC) [Entitic mass] 27.5 pg Normal 27.0-33.0 [facility] Comment on above: Order Comment: No: D o not add to previous draw Performed By: #### 8 [id number] #### [facility] [address] [place] [address], [facility] MCHC (RBC) [Mass/Vol] 31.4 g/dL Low 32.0-35.0 [facility] Comment on above: Order Comment: No: D o not add to previous draw Performed By: #### 8 [id number] #### [facility] [address] [place] [address], [facility] MCV (RBC) [Entitic vol] 87.6 fL Normal 82.0-98.0 [facility] Comment on above: Order Comment: No: D o not add to previous draw Performed By: #### 8 [id number] #### [facility] [address] [place] [address], [facility] Nucleated RBC/100 WBC (Bld) [Ratio] 0 % Normal 0-0 [facility] Comment on above: Order Comment: No: D o not add to previous draw Performed By: #### 8 [id number] #### [facility] [address] [place] [address], [facility] PLAT CNT 325 10*3/uL Normal 150-400 [facility] Comment on above: Order Comment: No: D o not add to previous draw Performed By: #### 8 [id number] #### [facility] [address] [facility] [address], [facility] RBC (Bld) [#/Vol] 4.03 10*6/uL Low 4.20-5.70 [facility] Comment on above: Order Comment: No: D o not add to previous draw Performed By: #### 8 [id number] #### [facility] [address] [place] [address], [facility] WBC (Bld) [#/Vol] 12.59 10*3/uL High 4.00-10.60 [facility] Comment on above: Order Comment: No: D o not add to previous draw Performed By: #### 8 [id number] #### [facility] [address] [facility] [place] [address], [facility] CBC W/DIFFon 07-14-2020 ABS IMM GRANS 0.2 10*3/uL Normal 0.0-0.2 [facility] Comment on above: Order Comment: No: D o not add to previous draw Performed By: #### 8 [id number] #### [facility] [address] [place] [address], [facility] ABS NEUTROPHILS 7.9 10*3/uL High 1.6-7.6 [facility] Comment on above: Order Comment: No: D o not add to previous draw Performed By: #### 8 [id number] #### [facility] [address] [facility] [place] [address], [facility] Basophils (Bld) [#/Vol] 0.1 10*3/uL Normal 0.0-0.2 [facility] Comment on above: Order Comment: No: D o not add to previous draw Performed By: #### 8 [id number] #### [facility] [address] [facility] [place] [address], [facility] Basophils/100 WBC (Bld) 0.5 % Normal 0.0-1.0 [facility] Comment on above: Order Comment: No: D o not add to previous draw Performed By: #### 8 [id number] #### [facility] [address] [place] [address], [facility] Eosinophils (Bld) [#/Vol] 0.5 10*3/uL Normal 0.0-0.5 [facility] Comment on above: Order Comment: No: D o not add to previous draw Performed By: #### 8 [id number] #### [facility] [address] [place] [id number], [facility] Eosinophils/100 WBC (Bld) 4.3 % Normal 0.0-6.0 [facility] Comment on above: Order Comment: No: D o not add to previous draw Performed By: #### 8 [id number] #### [facility] [address] [place] [address], [facility] Erythrocyte distribution width (RBC) [Ratio] 14.6 % Normal 11.5-15.0 [facility] Comment on above: Order Comment: No: D o not add to previous draw Performed By: #### 8 [id number] #### [facility] [address] [place] [address], [facility] Hematocrit (Bld) [Volume fraction] 34.2 % Low 39.0-50.0 [facility] Comment on above: Order Comment: No: D o not add to previous draw Performed By: #### 8 [id number] #### [facility] [address] [place] [address], [facility] Hemoglobin (Bld) [Mass/Vol] 10.3 g/dL Low 13.0-17.0 [facility] Comment on above: Order Comment: No: D o not add to previous draw Performed By: #### 8 [id number] #### [facility] [address] [place] [address], [facility] IMMATURE GRANS 1.4 % High 0.0-1.0 [facility] Comment on above: Order Comment: No: D o not add to previous draw Performed By: #### 8 [id number] #### [facility] [address] [place] [address], [facility] Lymphocytes (Bld) [#/Vol] 1.3 10*3/uL Normal 1.2-4.0 [facility] Comment on above: Order Comment: No: D o not add to previous draw Performed By: #### 8 [id number] #### [facility] [address] [place] [id number], [facility] Lymphocytes/100 WBC (Bld) 11.3 % Low 20.0-45.0 [facility] Comment on above: Order Comment: No: D o not add to previous draw Performed By: #### 8 [id number] #### [facility] [address] [place] [id number], [facility] MCH (RBC) [Entitic mass] 27.0 pg Normal 27.0-33.0 [facility] Comment on above: Order Comment: No: D o not add to previous draw Performed By: #### 8 [id number] #### [facility] [address] [place] [id number], [facility] MCHC (RBC) [Mass/Vol] 30.1 g/dL Low 32.0-35.0 [facility] Comment on above: Order Comment: No: D o not add to previous draw Performed By: #### 8 [id number] #### [facility] [address] [place] [address], [facility] MCV (RBC) [Entitic vol] 89.5 fL Normal 82.0-98.0 [facility] Comment on above: Order Comment: No: D o not add to previous draw Performed By: #### 8 [id number] #### [facility] [address] [place] [address], [facility] Monocytes (Bld) [#/Vol] 1.4 10*3/uL High 0.1-1.0 [facility] Comment on above: Order Comment: No: D o not add to previous draw Performed By: #### 8 [id number] #### [facility] [address] [place] [address], [facility] MONOS 12.6 % High 5.0-12.0 [facility] Comment on above: Order Comment: No: D o not add to previous draw Performed By: #### 8 [id number] #### [facility] [address] [place] [id number], [facility] Neutrophils/100 WBC (Bld) 69.9 % Normal 40.0-72.0 [facility] Comment on above: Order Comment: No: D o not add to previous draw Performed By: #### 8 [id number] #### [facility] [address] [place] [address], [facility] Nucleated RBC/100 WBC (Bld) [Ratio] 0 % Normal 0-0 [facility] Comment on above: Order Comment: No: D o not add to previous draw Performed By: #### 8 [id number] #### [facility] [address] [place] [address], [place] PLAT CNT 292 10*3/uL Normal 150-400 [facility] Comment on above: Order Comment: No: D o not add to previous draw Performed By: #### 8 [id number] #### [facility] [address] [place] [address], [facility] RBC (Bld) [#/Vol] 3.82 10*6/uL Low 4.20-5.70 [facility] Comment on above: Order Comment: No: D o not add to previous draw Performed By: #### 8 [id number] #### [facility] [address] [place] [id number], [facility] WBC (Bld) [#/Vol] 11.28 10*3/uL High 4.00-10.60 [facility] Comment on above: Order Comment: No: D o not add to previous draw Performed By: #### 8 [id number] #### [facility] [address] [place] [id number], [facility] COMP METABOLIC PANELon 07-14 Albumin [Mass/Vol] 3.1 g/dL Low 3.5-5.7 [facility] Comment on above: Order Comment: No: D o not add to previous draw Performed By: #### 8 [id number] #### [facility] [address] [place] [id number], [facility] ALKALINE PHOSPH 77 IU/L Normal 34-104 [facility] Comment on above: Order Comment: No: D o not add to previous draw Performed By: #### 8 [id number] #### [facility] [address] [place] [address], [place] ALT [Catalytic activity/Vol] 8 U/L Normal 7-52 [facility] Comment on above: Order Comment: No: D o not add to previous draw Performed By: #### 8 [id number] #### [facility] [address] [place] [address], [place] AST [Catalytic activity/Vol] 11 U/L Low 13-39 [facility] Comment on above: Order Comment: No: D o not add to previous draw Performed By: #### 8 [id number] #### [facility] [address] [place] [address], [place] Bilirubin [Mass/Vol] 0.3 mg/dL Normal 0.3-1.0 [facility] Comment on above: Order Comment: No: D o not add to previous draw Performed By: #### 8 [id number] #### [facility] [address] [place] [address], [place] Calcium [Mass/Vol] 8.8 mg/dL Normal 8.6-10.3 [facility] Comment on above: Order Comment: No: D o not add to previous draw Performed By: #### 8 [id number] #### [facility] [address] [place] [address], [place] Chloride [Moles/Vol] 101 mmol/L Normal 98-107 [facility] Comment on above: Order Comment: No: D o not add to previous draw Performed By: #### 8 [id number] #### [facility] [address] [place] [address], [place] CO2 [Moles/Vol] 22 mmol/L Normal 21-31 [facility] Comment on above: Order Comment: No: D o not add to previous draw Performed By: #### 8 [id number] #### [facility] [address] [place] [address], [place] Creatinine [Mass/Vol] 3.38 mg/dL High 0.70-1.30 [facility] Comment on above: Order Comment: No: D o not add to previous draw Performed By: #### 8 [id number] #### [facility] [address] [place] [address], [place] eGFR- 23 ml/min/1.73sq m Abnormal >60 The [facility] Comment on above: Order Comment: No: D o not add to previous draw Performed By: #### 8 [id number] #### [facility] [address] [place] [address], [place] eGFR- non- 19 ml/min/1.73sq m Abnormal >60 [facility] Comment on above: Order Comment: No: D o not add to previous draw Performed By: #### 8 [id number] #### [facility] [address] [place] [address], [place] Glucose [Mass/Vol] 324 mg/dL High 70-100 [facility] Comment on above: Order Comment: No: D o not add to previous draw Performed By: #### 8 [id number] #### [facility] [address] [place] [address], [place] Potassium [Moles/Vol] 4.5 mmol/L Normal 3.5-5.1 [facility] Comment on above: Order Comment: No: D o not add to previous draw Performed By: #### 8 [id number] #### [facility] [address] [place] [address], [place] Protein [Mass/Vol] 6.7 g/dL Normal 6.0-8.3 [facility] Comment on above: Order Comment: No: D o not add to previous draw Performed By: #### 8 [id number] #### [facility] [address] [place] [address], [place] Sodium [Moles/Vol] 131 mmol/L Low 136-145 [facility] Comment on above: Order Comment: No: D o not add to previous draw Performed By: #### 8 [id number] #### [facility] [address] [place] [address], [facility] Urea nitrogen [Mass/Vol] 27 mg/dL High 7-25 [facility] Comment on above: Order Comment: No: D o not add to previous draw Performed By: #### 8 [id number] #### [facility] [address] [place] [id number], [facility] CREATININE URINE RANDOMon Creatinine (U) [Mass/Vol] 101.0 mg/dL Normal The [facility] Comment on above: Order Comment: No: D o not add to previous draw Result Comment: Ther e are no established reference values for random urine specimens Performed By: #### 8 [id number] #### [facility] [address] [place] [address], [facility] FLUID CELL COUNTon 1 Basophils/100 WBC (Bld) 1 % Normal [facility] Comment on above: Performed By: #### 8 [id number] #### [facility] [address] [place] [address], [facility] Eosinophils/100 WBC (Bld) 11 % Normal [facility] Comment on above: Performed By: #### 8 [id number] #### [facility] [address] [place] [address], [facility] Lymphocytes/100 WBC (Bld) 49 % Normal [facility] Comment on above: Performed By: #### 8 [id number] #### [facility] [address] [place] [address], [facility] MESOTHELIAL 12 % Normal [facility] Comment on above: Performed By: #### 8 [id number] #### [facility] [address] [place] [address], [place] OTHER F1 Diff done by cytospin Normal [facility] Comment on above: Performed By: #### 8 [id number] #### [facility] [address] [place] [address], [facility] OTHER F3 Checked by Evelyn Rodriguez M.D. Normal [facility] Comment on above: Result Comment: Resu lt changed by ERR on 07/15/2020 13:33. The previous value was Preliminary report; verified report to follow. Performed By: #### 8 [id number] #### [facility] [address] [place] [id number], [facility] RBC 18257 RBC/uL Normal [facility] Comment on above: Performed By: #### 8 [id number] #### [facility] [address] [place] [address], [facility] SEGS 27 % Normal [facility] Comment on above: Performed By: #### 8 [id number] #### [facility] [address] [place] [address], [facility] SOURCE Thoracentesis Normal [facility] Comment on above: Performed By: #### 8 [id number] #### [facility] [address] [place] [address], [facility] TOTAL VOLUME 1L Normal [facility] Comment on above: Performed By: #### 8 [id number] #### [facility] [address] [place] [address], [facility] WBC 1762 WBC/uL Normal [facility] Comment on above: Result Comment: Some reference interval(s) and other method performance specifications have not been established for analytes on this body fluid. The test result must be integrated into the clinical context for interpretation. Performed By: #### 8 [id number] #### [facility] [address] [place] [address], [facility] GLUCOSE FLUID MISCon -18-2 021 Glucose [Mass/Vol] 326 mg/dL Normal [facility] Comment on above: Result Comment: The reference range and other method performance specifications have not been established for this test in fluids. the test result should be integrated into the clinical context for interpretation. Performed By: #### 3 1943 #### [facility] [address] [place] [address], [facility] HEMOGLOBIN A1Con 07-14-2020 Glucose [Moles/Vol] 295 mmol/L Normal [facility] Comment on above: Order Comment: Left Peural Effusion Performed By: #### 3 8 #### [facility] [address] [place] [address], [facility] HbA1c (Bld) [Mass fraction] 11.9 % High 4.0-6.0 [facility] Comment on above: Order Comment: Left Peural Effusion Performed By: #### 3 317 #### [facility] [address] [place] [address], [facility] HEPATITIS B SURFACE ANTIGEN QUALon 07-14-2020 HEP B SURF AG QUAL Non-Reactive Normal NONREACTIVE The [facility] Comment on above: Order Comment: No: D o not add to previous draw Performed By: #### 3 1943 #### [facility] [address] [place] [address], [facility] HEPATITIS C ANTIBODYon 07-14 ANTI-HCV Non-Reactive Normal NONREACTIVE The [facility] Comment on above: Order Comment: No: D o not add to previous draw Performed By: #### 3 1943 #### [facility] [address] [place] [address], [facility] LDH BLOODon 07-14-2020 LDH 176 Units/L Normal 140-271 [facility] Comment on above: Order Comment: Left Peural Effusion Performed By: #### 3 8 #### [facility] [address] [place] [address], [facility] LDH 133 Units/L Low 140-271 [facility] Comment on above: Order Comment: No: D o not add to previous draw Performed By: #### 8 [id number] #### [facility] [address] [place] [address], [facility] LDH FLUIDon 07-14-2020 LDH 212 Units/L Normal The [facility] Comment on above: Result Comment: The reference range and other method performance specifications have not been established for this test in fluids. the test result should be integrated into the clinical context for interpretation. Performed By: #### 3 1944 #### [facility] [address] [place] [address], [facility] LIPID PROFILEon 07-14-2020 Cholesterol [Mass/Vol] 95 mg/dL Low 120-200 [facility] Comment on above: Order Comment: No: D o not add to previous draw Result Comment: CHOL ESTEROL REFERENCE RANGE: 20 YEARS AND OLDER CARDIOVASCULAR RISK Less than 200 mg/dl Low Risk 200 to 239 mg/dl Borderline Risk 240 mg/dl and greater High Risk Performed By: #### 8 [id number] #### [facility] [address] [place] [address], [facility] Cholesterol in HDL [Mass/Vol] 36 mg/dL Normal 23-92 [facility] Comment on above: Order Comment: No: D o not add to previous draw Result Comment: Slig ht variation in normal range could be due to gender and/or age. HDL CHOLESTEROL REFERENCE RANGE: 20 years and older Cardiovascular Risk > or =60 mg/dL Desirable 40 TO 59 mg/dL Low Risk <40 mg/dL High Risk Performed By: #### 8 [id number] #### [facility] [address] [place] [address], [facility] Cholesterol in LDL [Mass/Vol] 37 mg/dL Normal 0-130 [facility] Comment on above: Order Comment: No: D o not add to previous draw Result Comment: LDL IS A CALCULATION LDL IS ONLY VALID IF THE TRIG IS LESS THAN 400. Performed By: #### 8 [id number] #### [facility] [address] [place] [address], [facility] Cholesterol.total/ Cholesterol in HDL [Mass ratio] 2.6 {ratio} Normal 0.0-4.5 [facility] Comment on above: Order Comment: No: D o not add to previous draw Performed By: #### 8 [id number] #### [facility] [address] [place] [address], [facility] NON-HDL CHOLESTEROL 59 mg/dL Normal [facility] Comment on above: Order Comment: No: D o not add to previous draw Performed By: #### 8 [id number] #### [facility] [address] [place] [address], [facility] Triglyceride [Mass/Vol] 109 mg/dL Normal 40-149 [facility] Comment on above: Order Comment: No: D o not add to previous draw Result Comment: TRIG LYCERIDE REFERENCE RANGE: 20 YEARS AND OLDER CARDIOVASCULAR RISK LESS THAN 150 mg/dl LOW RISK 150 TO 199 mg/dl BORDERLINE RISK 200 mg/dl AND GREATER HIGH RISK Performed By: #### 8 [id number] #### [facility] [address] [place] [address], [facility] VLDL CHOL 22 mg/dL Normal 0-40 [facility] Comment on above: Order Comment: No: D o not add to previous draw Performed By: #### 8 [id number] #### [facility] [address] [place] [address], [facility] MAGNESIUM BLOODon 07-14-2020 Magnesium [Mass/Vol] 2.1 mg/dL Normal 1.9-2.7 [facility] Comment on above: Order Comment: No: D o not add to previous draw Performed By: #### 8 [id number] #### [facility] [address] [place] [address], [facility] Magnesium [Mass/Vol] 2.0 mg/dL Normal 1.9-2.7 [facility] Comment on above: Performed By: #### 8 5499 #### [facility] [address] [place] [id number], [facility] PHOSPHORUS BLOODon Phosphate [Mass/Vol] 4.1 mg/dL Normal 2.5-5.0 [facility] Comment on above: Order Comment: No: D o not add to previous draw Performed By: #### 8 [id number] #### [facility] [address] [place] [place] [address], [facility] Phosphate [Mass/Vol] 4.0 mg/dL Normal 2.5-5.0 [facility] Comment on above: Performed By: #### 8 5499 #### [facility] [address] [place] [address], [place] POC GLUCOSE LABon 07-14-2020 Glucose [Mass/Vol] 180 mg/dL High 70-100 [facility] Comment on above: Performed By: #### 8 [id number] ####[facility] [facility] [place] [address], [place] Glucose [Mass/Vol] 198 mg/dL High 70-100 The [facility] Comment on above: Performed By: #### 5 7307, [id number] #### [facility] [address] [place] [address], [place] Glucose [Mass/Vol] 265 mg/dL High 70-100 [facility] Comment on above: Performed By: #### 8 [id number] #### [facility] [address] [place] [place] [address], [place] Glucose [Mass/Vol] 305 mg/dL High 70-100 [facility] Comment on above: Performed By: #### 5 7307, 20356 #### [facility] [address] [place] [address], [place] Glucose [Mass/Vol] 301 mg/dL High 70-100 [facility] Comment on above: Performed By: #### 5 0103 #### [facility] [address] [facility] [place] [address], [place] PORTABLE CHEST 1 VIEWon 06-27 PORTABLE CHEST 1 VIEW [facility] Department of Radiology [address] [place] [address] Patient Name: RASHARD LYMAN : 1960 Sex: M Age: Race: White Pt. Location: [address] [place] [address] Patient Status: I Ordered Date: 07/14/2020 1:40:00 [...] above Electronically signed: Patricia Damon. Transcribed by: [email or web address], User Resident: Electronically Signed by: PATRICIA DAMON @ 07/14/2020 03:24 PM Normal [facility] Comment on above: Order Comment: Evalu ate for Pneumothorax PORTABLE CHEST 1 VIEW [facility] Department of Radiology [address] [place] [id number] Patient Name: RASHARD LYMAN : 1960 Sex: M Age: Race: White Pt. Location: [address] [place] [address] Patient Status: I Ordered Date: 07/13/2020 11:35:00 [...] reports Electronically signed: Valdemar Foster. Transcribed by: [email or web address], User Resident: [email or web address] Electronically Signed by: VALDEMAR FOSTER @ 07/14/2020 06:31 AM I personally read this/these film(s) with this resident Normal [facility] Comment on above: Order Comment: evalu ate for Effusion PROTEIN ELECT Truong 07-14-2020 Protein [Mass/Vol] 6.0 g/dL Normal 6.0-8.3 [facility] Comment on above: Performed By: #### 3 0318 #### [facility] [address] [place] [address], [facility] PROTEIN ELECT Normal [facility] Comment on above: Result Comment: Decr eased albumin and elevated alpha 1 and 2 suggests acute inflammation. Performed By: #### 3 0318 #### [facility] [address] [place] [address], [facility] PROTEIN ELECT URon 1 PROTEIN ELECT Urine protein electrophoresis suggests a nonselective nephropathy. Normal The [facility] Comment on above: Performed By: #### 3 1944 #### [facility] [address] [place] [address], [facility] PROTEIN TOTAL BLOODon 2020 Protein [Mass/Vol] 6.7 g/dL Normal 6.0-8.3 [facility] Comment on above: Order Comment: Left Peural Effusion Performed By: #### 3 0318 #### [facility] [address] [place] [address], [facility] PROTHROMBIN TIMEon 1 INR Coag (PPP) [Relative time] 1.12 {INR} Normal 0.91-1.16 [facility] Comment on above: Order Comment: No: [...] CHEST 1995;[id number]. Performed By: #### 5 7307, 99267 #### [facility] [address] [place] [address], [facility] PT Coag (PPP) [Time] 14.4 s Normal 12.3-14.8 [facility] Comment on above: Order Comment: No: D o not add to previous draw Result Comment: ALL RESULTS MUST BE INTERPRETED WITH RESPECT TO BLOOD DRAWING ARTIFACT OR DILUTION ERROR OF ANTICOAGULANT AT THE TIME OF SAMPLING. Performed By: #### 5 7307, 99052 #### [facility] [address] [place] [address], [facility] SEDIMENTATION RATEon 021 SED RATE 32 mm/hr High 0-10 [facility] Comment on above: Performed By: #### 8 [id number] #### [facility] [address] [place] [address], [facility] SODIUM URINE RANDOMon 2020 Sodium (U) [Moles/Vol] 59 mmol/L Normal The [facility] Comment on above: Order Comment: No: D o not add to previous draw Result Comment: Ther e are no established reference values for random urine specimens Performed By: #### 8 [id number] #### [facility] [address] [place] [address], [place] T PROT FLUIDon 07-14-2020 Protein [Mass/Vol] 3.6 g/dL Normal The [facility] Comment on above: Result Comment: The reference range and other method performance specifications have not been established for this test in fluids. the test result should be integrated into the clinical context for interpretation. Performed By: #### 3 1944 #### [facility] [address] [place] [address], [place] T PROT UR Loretta 07-14-2020 U TOTAL PROTEIN 859.0 mg/dL Normal The [facility] Comment on above: Order Comment: No: D o not add to previous draw Result Comment: Ther e are no established reference values for random urine specimens Performed By: #### 8 [id number] #### [facility] [address] Performed By: #### 3 1944 #### [facility] [address] [facility]. [address] TROPONIN-Ion 07-14-2020 Troponin I.cardiac [Mass/Vol] 0.09 ng/mL High 0.00-0.04 The [facility] Comment on above: Order Comment: No: D o not add to previous draw Result Comment: REFE RENCE RANGES: 0.00 - 0.04 ng/ml NORMAL 0.05 - 0.50 ng/ml INDETERMINATE > 0.50 ng/ml CONSISTENT WITH AN M.I. Performed By: #### 8 [id number] #### [facility] [address] Troponin I.cardiac [Mass/Vol] 0.07 ng/mL High 0.00-0.04 [facility] Comment on above: Order Comment: No: D o not add to previous draw Result Comment: REFE RENCE RANGES: 0.00 - 0.04 ng/ml NORMAL 0.05 - 0.50 ng/ml INDETERMINATE > 0.50 ng/ml CONSISTENT WITH AN M.I. Performed By: #### 8 [id number] #### [facility] [address] TSH3on 07-14-2020 TSH 3RD GENERATION 3.28 uIU/mL Normal 0.34-5.60 [facility] Comment on above: Order Comment: No: D o not add to previous draw Performed By: #### 8 [id number] #### [facility] [address] URIC ACID BLOODon 07-14-2020 Urate [Mass/Vol] 7.1 mg/dL Normal 4.4-7.6 [facility] Comment on above: Performed By: #### 8 [id number] #### [facility] [address] [place] [address], [facility] URINALYSIS REFLEXon 07-15-19 21 Appearance (U) SL CLOUDY Abnormal CLEAR [facility] Comment on above: Order Comment: Left Peural Effusion Performed By: #### 3 0318 #### [facility] [address] [place] [address], [place] Bilirubin Ql (U) Negative Normal NEGATIVE [facility] Comment on above: Order Comment: Left Peural Effusion Performed By: #### 3 0318 #### [facility] [address] [place] [address], [facility] Color (U) YELLOW Normal YELLOW [facility] Comment on above: Order Comment: Left Peural Effusion Performed By: #### 3 0318 #### [facility] [address] [place] [address], [facility] EPIS FEW Normal FEW,OCC,NONE SEEN [facility] Comment on above: Order Comment: Left Peural Effusion Performed By: #### 3 0318 #### [facility] [address] [place] [address], [place] Glucose Ql (U) >=500 Abnormal NEGATIVE [facility] Comment on above: Order Comment: Left Peural Effusion Performed By: #### 3 0318 #### [facility] [address] [place] [address], [place] Hemoglobin Ql (U) TRACE Abnormal NEGATIVE [facility] Comment on above: Order Comment: Left Peural Effusion Performed By: #### 3 0318 #### [facility] [address] [place] [address], [place] [employer]ET[employer] TRACE Abnormal NEGATIVE [facility] Comment on above: Order Comment: Left Peural Effusion Performed By: #### 3 0318 #### [facility] [address] [place] [address], [facility] JACIEL Negative Normal NEGATIVE [facility] Comment on above: Order Comment: Left Peural Effusion Performed By: #### 3 0318 #### [facility] [address] [place] [address], [facility] MUCUS THREADS OCC Abnormal NONE SEEN [facility] Comment on above: Order Comment: Left Peural Effusion Performed By: #### 3 0318 #### [facility] [address] [place] [address], [facility] Nitrite Ql (U) Negative Normal NEGATIVE [facility] Comment on above: Order Comment: Left Peural Effusion Performed By: #### 3 0318 #### [facility] [address] [place] [address], [facility] pH (U) 6.0 [pH] Normal 5.0-8.0 [facility] Comment on above: Order Comment: Left Peural Effusion Performed By: #### 3 0318 #### [facility] [address] [place] [address], [facility] Protein Ql (U) >=500 Abnormal NEGATIVE [facility] Comment on above: Order Comment: Left Peural Effusion Performed By: #### 3 0318 #### [facility] [address] [place] [address], [facility] RBC 0-2 Abnormal NONE SEEN [facility] Comment on above: Order Comment: Left Peural Effusion Performed By: #### 3 0318 #### [facility] [address] [place] [address], [place] SPEC GRAV 1.017 Normal 1.015-1.020 [facility] Comment on above: Order Comment: Left Peural Effusion Performed By: #### 3 0318 #### [facility] [address] [place] [address], [place] WBC UA 3-5 Abnormal NONE SEEN [facility] Comment on above: Order Comment: Left Peural Effusion Performed By: #### 3 0318 #### [place] [address] [address] Vital Signs Date Time Vital Sign Value Performing Clinician Facility 02-27-2024 11:25-0400 Body height 193 cm Nima Lee MD Work Phone: [facility] [employer] [facility] 02-27-2024 11:25-0400 Body mass index (BMI) [Ratio] 28 kg/m2 Nima Lee MD Work Phone: [facility] [employer] [facility] 02-27-2024 11:25-0400 Body temperature 97.11 [degF] Nima Lee MD Work Phone: [facility] [employer] [facility] 02-27-2024 11:25-0400 Body weight 104.33 kg Nima Lee MD Work Phone: [facility] [employer] [facility] 02-27-2024 11:25-0400 Diastolic blood pressure 80 mm[Hg] Nima Lee MD Work Phone: [facility] [employer] [facility] 02-27-2024 11:25-0400 Heart rate 78 /min Nima Lee MD Work Phone: [facility] [employer] [facility] 02-27-2024 11:25-0400 SaO2% (BldA) [Mass fraction] 98 % Nima Lee MD Work Phone: [facility] [employer] [facility] 02-27-2024 11:25-0400 Systolic blood pressure 130 mm[Hg] Nima Lee MD Work Phone: [facility] [employer] [facility] 03-21-2021 15:40-0500 Body height 193.04 cm Kike Pollack Other [employer] Other 03-21-2021 15:40-0500 Body mass index (BMI) [Ratio] 39.02 kg/m2 Kike Pollack Other [employer] Other 03-21-2021 15:40-0500 Body temperature 97.8 [degF] Kike Pollack Other [employer] Other 03-21-2021 15:40-0500 Body weight 145.42 kg Kike Pollack Other [employer] Other 03-21-2021 15:40-0500 Diastolic blood pressure 84 mm[Hg] Kike Pollack Other [employer] Other 03-21-2021 15:40-0500 Respiratory rate 18 /min Kike Pollack Other [employer] Other 03-21-2021 15:40-0500 SaO2% (BldA) [Mass fraction] 96 % Kike Pollack Other [employer] Other 03-21-2021 15:40-0500 Systolic blood pressure 137 mm[Hg] Kike Pollack Other [employer] Other 08-25-2020 12:24-0400 Heart rate 82 /min Jose Forteone Work Phone: [facility] 08-25-2020 12:24-0400 Respiratory rate 20 /min Jose Valone Work Phone: [facility] 08-25-2020 11:17-0400 Body temperature 98.7 [degF] Jose Valone Work Phone: [facility] 08-25-2020 11:17-0400 Diastolic blood pressure 94 mm[Hg] Jose Valone Work Phone: [facility] 08-25-2020 11:17-0400 SaO2% (BldA) [Mass fraction] 96 % Jose Valone Work Phone: [facility] 08-25-2020 11:17-0400 Systolic blood pressure 183 mm[Hg] Jose Valone Work Phone: [facility] 08-25-2020 06:00-0400 Body weight 160.5 kg Jose Valone Work Phone: [facility] 08-19-2020 14:17-0400 Body height 193.04 cm Jose Valone Work Phone: [facility] 08-18-2020 21:22-0400 Body height 193.04 cm Jose Valone Work Phone: [facility] 08-18-2020 21:22-0400 Body mass index (BMI) [Ratio] 43.8 kg/m2 Jose Valone Work Phone: [facility] 08-18-2020 21:22-0400 Body temperature 97.6 [degF] Jose Valone Work Phone: [facility] 08-18-2020 21:22-0400 Body weight 163.3 kg Jose Forteone Work Phone: [facility] 08-18-2020 21:22-0400 Diastolic blood pressure 80 mm[Hg] Jose Valone Work Phone: [facility] 08-18-2020 21:22-0400 Heart rate 105 /min Jose Valone Work Phone: [facility] 08-18-2020 21:22-0400 Respiratory rate 18 /min Jose Forteone Work Phone: [facility] 08-18-2020 21:22-0400 SaO2% (BldA) [Mass fraction] 94 % Jose Valone Work Phone: [facility] 08-18-2020 21:22-0400 Systolic blood pressure 160 mm[Hg] Jose Valone Work Phone: [facility] Encounters Encounter Date Encounter Type Care Provider Facility Start: 08-28-2024 End: 08-28-2024 ambulatory Chino Elliott [facility] Work Phone: Start: 08-28-2024 End: 08-28-2024 Departed Referred Chino Elliott DPM Work Phone: [facility] Start: 02-27-2024 End: 02-27-2024 Office outpatient visit 25 minutes Nima Lee MD Work Phone: [facility] Comment on above: 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) Start: 02-17-2024 End: 02-17-2024 ambulatory [facility] Start: 01-20-2024 End: 01-20-2024 ambulatory [facility] Start: 12-16-2023 End: 12-16-2023 ambulatory [facility] Start: 11-19-2023 End: 11-19-2023 ambulatory [facility] Start: 10-23-2023 End: 10-23-2023 ambulatory [facility] Start: 09-03-2023 End: 09-03-2023 ambulatory [facility] Start: 07-31-2023 End: 07-31-2023 ambulatory [facility] Start: 07-02-2023 End: 07-02-2023 ambulatory [facility] Start: 06-04-2023 End: 06-04-2023 ambulatory [facility] Start: 05-31-2023 End: 06-01-2023 ambulatory JUANCARLOS LEHMAN [facility] Start: 05-06-2023 End: 05-06-2023 ambulatory [facility] Start: 04-19-2023 End: 04-19-2023 ambulatory [facility] Start: 02-27-2023 End: 02-28-2023 ambulatory CHINO [facility] Start: 09-11-2022 End: 09-12-2022 ambulatory [facility] Facility:H1 Start: 08-28-2022 End: 08-29-2022 [facility] Start: 08-24-2022 End: 08-25-[address] JOSE JUAREZ Facility:H1 Start: 08-20-2022 End: 08-21-[address] JOSE JUAREZ Facility:H1 Start: 08-19-2022 Encounter for preprocedural cardiovascular examination [facility] Start: 08-19-2022 Encounter for preprocedural laboratory examination [facility] Mark Anthony [facility] Start: 08-19-2022 Encounter for preprocedural respiratory examination [facility] Mark Anthony [facility] Start: 08-15-2022 End: 08-16-2022 ambulatory [...] Start: 02-02-2022 End: 02-03-2022 ambulatory CHINO Hopson [facility] Facility:H1 Start: 01-26-2022 End: 01-27-2022 ambulatory CHINO D [facility] Facility:H1 Start: 01-18-2022 End: 01-19-2022 ambulatory PETER D [facility] Facility:H1 Start: 01-15-2022 End: 01-15-2022 ambulatory CHINO D [facility] Facility:H1 Start: 01-12-2022 End: 01-13-2022 ambulatory [facility] D [facility] Facility:H1 Start: 01-10-2022 End: 01-11-2022 ambulatory [facility] Facility:H1 Start: 01-02-2022 End: 01-03-2022 ambulatory [facility] D [facility] Facility:H1 Start: 12-25-2021 End: 12-26-2021 ambulatory CHINO Hopson [facility] Facility:H1 Start: 12-21-2021 End: 12-22-2021 ambulatory SHAIKH Patricia DAVIS Facility:H1 Start: 12-18-2021 End: 12-19-2021 ambulatory CHINO [facility] Facility:H1 Start: 12-15-2021 End: 12-16-2021 ambulatory CHINO Hopson [facility] Facility:H1 Start: 12-11-2021 End: 12-12-2021 ambulatory CHINO Mark Anthony [facility] Facility:H1 Start: 11-30-2021 End: 12-01-[address] CARLOS EDUARDO SU . Facility:H1 Start: 11-22-2021 End: 11-23-[address] CARLOS EDUARDO SU . Facility:H1 Start: 11-21-2021 End: 11-22-2021 ambulatory [facility] Start: 11-14-[address] CARLOS EDUARDO SU . Faci lity:H1 Start: 11-13-2021 End: 11-14-2021 ambulatory CHINO Mark Anthony [facility] Facility:H1 Start: 11-07-2021 End: 11-08-2021 ambulatory PETER [facility] Facility:H1 Start: 10-31-2021 End: 11-01-2021 ambulatory [facility] Start: 10-24-2021 End: 10-25-2021 ambulatory CHINO Hopson [facility] Facility:H1 Start: 10-17-2021 End: 10-18-2021 ambulatory CHINO Hopson [facility] Facility:H1 Start: 10-09-2021 End: 10-10-2021 ambulatory CHINO Hopson [facility] Facility:H1 Start: 03-21-2021 End: 03-21-2021 ambulatory Kike Pollack Other [facility] [employer] Other Start: 03-21-2021 Office outpatient vi sit 25 minutes Kike Pollack [facility] Start: 10-20-2020 End: 10-21-2020 ambulatory [facility] Start: 09-28-2020 End: 09-28-2020 Patient encounter procedure Jose Juarez Work Phone: -Respiratory Therapy Start: 09-06-2020 End: 09-06-2020 Patient encounter procedure Jose Juarez Work Phone: -Electrodiagnostics Start: 08-18-2020 End: 08-25-2020 Evaluation and management of inpatient Jose Juarez Work Phone: -[facility] Start: 07-13-2020 End: 07-22-2020 Evaluation and management of inpatient SAVANNAH REYNOLDS Facility:[facility] Procedures Date Procedure Procedure Detail [...] Td Vaccines (2 - Td or Tdap) [employer] Start: 08-28-2024 [facility] Start: 05-06-2024 Urine screening for protein Urine Microalbumin [employer] Start: 02-27-2024 End: 02-26-2025 US.doppler Extremity arteries - bilateral for physiologic artery study Vas art doppler lwr bilat mult lev/PVR Vascular Ultrasound Routine Critical limb ischemia of left lower extremity with gangrene (CMS-HCC) Expected: 02/27/2024, Expires: 02/26/2025 [employer] Work Phone: Comment on above: Expected: 02/27/2024 , Expires: 02/26/2025 Start: 12-29-2023 COVID-19 Vaccine ( season) COVID-19 Vaccine ( season) [facility] Start: 12-29-2023 Influenza vaccination Influenza Vacc ine [facility] Start: 08-18-2020 Bacteria identified in Blood by Culture Blood Culture [facility] Start: 02-04-2010 Administration of varicella zoster vaccine Zoster (Shingles) Vaccine (1 of 2) [facility] Start: 02-04-1978 Adult BMI Screening Adult BMI Screen ing [facility] Start: 02-04-1978 Diabetic foot examination Diabetic F oot Exam [facility] Start: 1972 Depression Screening Depression Scre ening [facility] Start: 1972 Tobacco Screening Tobacco Screening [facility] Start: 1960 Glaucoma screening Diabetic Op hthalmology Exam [facility] Patient referral [facility] Immunizations Immunization Date Immunization Notes Care Provider Fa cility 01-29-2020 influenza virus vacc ine, unspecified formulation Nima Lee MD Work Phone: [facility] 02-10-2017 tetanus toxoid, redu jennifer diphtheria toxoid, and acellular pertussis vaccine, adsorbed Nima Lee MD Work Phone: [facility] 05-27-2015 influenza, seasonal, injectable Kike Pollack Other [facility] 05-27-2015 pneumococcal polysaccharide vaccine, 23 valent Kike Pollack Other [facility] Payers Date Payer Category Payer Unknown [id number] 2017 [employer] Kendrick palmer Managed Care - Other [employer] [id number] 1960 Unknown [id number] 2.16.840.1.202930.3.579. 2.647 1960 Unknown [id number] 2.16.840.1.131605.3.579. 2.732 1960 Unknown [id number] 2.16.840.1.431204.3.579. 2.593 1960 Unknown [id number] 2.16.840.1.459248.3.579. 2.593 1960 Unknown [id number] 2.16.840.1.135771.3.579. 2.593 1960 Unknown [id number] 2.16.840.1.983408.3.579. 2.593 1960 Unknown [id number] 2.16.840.1.849747.3.579. 2.593 1960 Unknown [id number] 2.16.840.1.933266.3.579. 2.593 1960 Unknown [id number] 2.16.840.1.028746.3.579. 2.593 1960 Unknown [id number] 2.16.840.1.068229.3.579. 2.593 1960 Unknown [id number] 2.16.840.1.858335.3.579. 2.593 1960 Unknown [id number] 2.16.840.1.721124.3.579. 2.593 1960 Unknown [id number] 2.16.840.1.249530.3.579. 2.593 1960 Unknown [id number] 2.16.840.1.635116.3.579. 2.593 1960 Unknown [id number] 2.16.840.1.413921.3.579. 2.593 1960 Unknown [id number] 2.16.840.1.626011.3.579. 2.593 1960 Unknown [id number] 2.16.840.1.540886.3.579. 2.593 1960 Unknown [id number] 2.16.840.1.729356.3.579. 2.593 1960 Unknown [id number] 2.16.840.1.943136.3.579. 2.593 1960 Unknown [id number] 2.16.840.1.726500.3.579. 2.593 1960 Unknown [id number] 2.16.840.1.365251.3.579. 2.593 1960 Unknown [id number] 2.16.840.1.481436.3.579. 2.593 1960 Unknown [id number] 2.16.840.1.452166.3.579. 2.593 1960 Unknown [id number] 2.16.840.1.097275.3.579. 2.593 1960 Unknown [id number] 2.16.840.1.895669.3.579. 2.593 1960 Unknown [id number] 2.16.840.1.883114.3.579. 2.593 1960 Unknown [id number] 2.16.840.1.659007.3.579. 2.593 1960 Unknown [id number] 2.16.840.1.497207.3.579. 2.593 1960 Unknown [id number] 2.16.840.1.344061.3.579. 2.593 1960 Unknown [id number] 2.16.840.1.845713.3.579. 2.593 1960 Unknown [id number] 2.16.840.1.318954.3.579. 2.593 1960 Unknown [id number] 2.16.840.1.396097.3.579. 2.593 1960 Unknown [id number] 2.16.840.1.380134.3.579. 2.593 1960 Unknown [id number] 2.16.840.1.106175.3.579. 2.593 1960 Unknown [id number] 2.16.840.1.523133.3.579. 2.593 1960 Unknown [id number] 2.16.840.1.516125.3.579. 2.593 1960 Unknown [id number] 2.16.840.1.003198.3.579. 2.593 1960 Unknown [id number] 2.16.840.1.827773.3.579. 2.593 1960 Unknown [id number] 2.16.840.1.457942.3.579. 2.593 1960 Unknown [id number] 2.16.840.1.410810.3.579. 2.593 1960 Unknown [id number] 2.16.840.1.980101.3.579. 2.593 1960 Unknown [id number] 2.16.840.1.476813.3.579. 2.593 1960 Unknown [id number] 2.16.840.1.678565.3.579. 2.593 1960 Unknown [id number] 2.16.840.1.602384.3.579. 2.593 1960 Unknown [id number] 2.16.840.1.382524.3.579. 2.593 1960 Unknown [id number] 2.16.840.1.988186.3.579. 2.593 1960 Unknown [id number] 2.16.840.1.476903.3.579. 2.1286 1960 Unknown [id number] 2.16.840.1.980076.3.579. 2.1286 1960 Unknown [id number] 2.16.840.1.776899.3.579. 2.1286 1960 Unknown [id number] 2.16.840.1.861990.3.579. 2.1285 1960 Unknown [id number] 2.16.840.1.784446.3.579. 2.1286 1960 Unknown [id number] 2.16.840.1.124388.3.579. 2.1286 1960 Unknown [id number] 2.16.840.1.633823.3.579. 2.1286 1960 Unknown [id number] 2.16.840.1.705185.3.579. 2.1286 1960 Unknown [id number] 2.16.840.1.682033.3.579. 2.1286 1960 Unknown [id number] 2.16.840.1.308539.3.579. 2.128 1960 Unknown [id number] 2.16.840.1.143265.3.579. 2.1286 1959 Unknown [id number] Medicare Self Pay [id number] Medicare Medicare [id number] Self-pay Self Pay [id number] Social History Date Type Detail [facility] Start: 1960 Sex Assigned At Male Malik [facility] Start: 08-18-2020 [facility] Start: 08-22-2020 [facility] Never [facility] (finding) [facility] Start: 06-09-2020 End: 02-27-2024 Sex Assigned At [facility] [employer] Other Start: 02-10-2017 [facility] End: 02-11-2016 History of tobacco use Current smoker [facility] End: 02-11-2016 History of tobacco use Cigarette Smoker [facility] Start: 02-10-2017 Tobacco use and exposure Smokeless tobacco non-user [facility] Start: 02-27-2024 Alcoholic beverage intake Current non-drinker of alcohol (finding) [facility] Start: 06-09-2020 End: 02-27-2024 History of Social function [facility] Childcare Unknown [facility] Start: 1960 Sex assigned at Not on file P [facility] Start: 12-02-2014 End: 08-29-2024 Sex Male (finding) [facility] tem Goals Date Patient Goal Desired Activity /State Functional Status Date Assessment Result Facility 08-25-2020 Functional status Patient at Baseline [facility] Mental Status Date Assessment Result Facility 08-25-2020 Cognitive function Cognitive Sta tus Patient at Baseline [facility] Clinical Notes 07-15-2020 to 02-27-2024 Assessment & Plan Note - Nima Lee MD - 02/27/2024 11:44 AM EDTAssessment & Plan Note - Nima Lee MD - 02/27/2024 11:44 AM EDTMbernard Lee MD - 02/27/2024 11:20 AM EDT Note Date & Type Note Facility 02-27-2024 Evaluation + Plan note Associated Problem(s): Critical limb ischemia of left lower extremity with gangrene ([facility]-HCC) PVR [facility] 02-27-2024 Miscellaneous Notes Associate d Problem(s): Critical limb ischemia of left lower extremity with gangrene ([facility]-HCC) PVR documented in this encounter [facility] 02-27-2024 History of Presen t illness Narrative [...] musculoskeletal pain COPD (chronic obstructive pulmonary disease) ([facility]) Diabetes mellitus ([facility]) Fracture, clavicle History of MRSA (methicillin resistant Staphylococcus aureus) Neuropathy Renal failure Dialysis since 04/2014 Past Surgical History: Past Surgical History: Procedure Laterality Date APPENDECTOMY CHOLECYSTECTOMY DIALYSIS FISTULA CREATION Right arm INJECTION CAUDAL EPIDURAL WITH CATHETER, STEROID N/A 06/05/2019 Performed by Jefferson Bryant MD at [facility] Right 5th TONSILLECTOMY Social [...] Plan 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 Diagnoses and all orders for this visit: Critical limb ischemia of left lower extremity with gangrene (CMS-HCC) Nima Lee MD, MISTY, RPVI, FSVS, FACS [facility] [employer] This note was created with the assistance of a speech recognition program. While intending to generate a timely document that accurately reflects the content of the visit, no guarantee can be provided that every grammatical or spelling mistake has been or will be identified or corrected. Thank you for your understanding. documented in this encounter [facility] 08-20-2022 Note PROCEDURE: XR FOOT L T [...] authenticated by: PRISCA SANDERSON Date: 2022-08-20 13:00 [facility] 08-15-2022 Note EXAM: XR CHEST 2 V [...] authenticated by: CHINO CABALLERO Date: 2022-08-15 15:06 [facility] 08-01-2022 Note PROCEDURE: XR FOOT L T [...] authenticated by: JAMESON SALGUERO Date: 2022-08-01 07:49 [facility] 03-01-2022 Note CONSULTATION CONSULTATION DATE: 03/01/2022 This [...] with certain activities such as standing, walking, ldr nurse and 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 [facility] 03-01-2022 Note CONSULTATION PROCEDURE DATE: 03/01/2022 PREOPERATIVE [...] pattern and patient tolerated procedure well. [facility] 12-22-2021 Note PROCEDURE: XR ANKLE LT MIN [...] authenticated by: PRISCA SANDERSON Date: 2021-12-22 10:12 [facility] 12-22-2021 Note PROCEDURE: XR ANKLE [...] authenticated by: PRISCA SANDERSON Date: 2021-12-22 10:12 [facility] 12-22-2021 Note PROCEDURE: XR ANKLE [...] authenticated by: PRISCA SANDERSON Date: 2021-12-22 10:12 [facility] 12-22-2021 Note PROCEDURE: XR ANKLE LT 2V HISTORY: Pain ; left ankle external fixation application COMPARISON: None. FINDINGS: BONES:3 intraoperative spot fluoroscopic images demonstrate external fixation device surrounding the left ankle. IMPRESSION: External fixation device application. Electronically authenticated by: PRISCA SANDERSON Date: 2021-12-22 10:07 [facility] 12-12-2021 Note PROCEDURE: XR FOOT L T [...] by: PRISCA SANDERSON Date: 2021-12-12 08:04 [facility] 11-30-2021 Note CONSULTATION The patient returns to [...] in clinic in three months' time. [facility] 11-22-2021 Note CONSULTATION CONSULTATION DATE: 11/22/2021 HISTORY [...] to the clinic to receive those. [facility] 11-14-2021 Note PROCEDURE: XR FOOT L T [...] authenticated by: PRISCA SANDERSON Date: 2021-11-14 15:42 [facility] 11-07-2021 Note PROCEDURE: XR FOOT [...] authenticated by: JAMESON SALGUERO Date: 2021-11-07 19:28 [facility] 03-21-2021 Evaluation note Encounter Date [...] takes midodrine as well as stated above. [employer] Other 03-27-2021 NoteMR#: [id number] I [facility] Pt. Name: Rashard Lyman Admitted: 07/13/2020 [...] ON DISCHARGE: A (more content not included)...[facility]03-19-2021 NoteMR#: [id number] [facility] Pt. Name: Rashard Lyman Surgery Date: 07/14/2020 Room #: [id number] Date of : 1960 PROCEDURE NOTE ATTENDING: [...] Pham MD Date Trans: 07/15/2020 01:32 P/ [id number] cc: Nima Wynne MD [address] [place] [id number] NoteMR#: [id number] [facility] Pt. Name: Rashard Lyman Surgery Date: 07/14/2020 Room #: [id number] Date of : 1960 PROCEDURE NOTE ATTENDING: Nima Wynne MD Procedure: Left sided US guided Thoracentesis Pre-procedure Diagnosis: Left pleural effusion Post-procedure Diagnosis: same as above Prior to Procedure: Informed Consent:The risks, benefits, indications, potential complications, and alternatives were explained to the patient/family and informed consent obtained Attending Staff: Nima Wynne Resident/Fellow/CUSTOMER ACCOUNT COORDINATOR: Davis Pham Indications: Nura Munoz is 60 [...] Wynne MD Date Trans: 07/15/2020 12:53 P/ [id number] [facility] Diagnosis Onset Date Resolution Status Hyperglycemia acute Pneumonia acute Psoriasis acute 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 acute CKD (chronic kidney disease) stage 4, GFR 15-29 ml/min chronic COPD (chronic obstructive pulmonary disease) chronic 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 tube rebuilder vasiliy GERD (gastroesophageal reflux disease) chronic Obesities, morbid chronic Peripheral vascular occlusive disease chronic 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 Diagnosis Onset Date Resolution Status [place] (acute kidney injury) [place] Anemia of renal disease acut e Atelectasis of left lung acu te Fibrothorax acute History of pleural effusion acute Metabolic acidosis acute Pericarditis acute Pleuritic chest pain acute Psoriasis acute 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 acute CKD (chronic kidney disease) stage 4, GFR 15-29 ml/min chronic COPD (chronic obstructive pulmonary disease) chronic 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 tube rebuilder vasiliy GERD (gastroesophageal reflux disease) chronic Hypertension chronic [id number] chronic Obesities, morbid chronic Peripheral vascular occlusive disease chronic 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 [facility]* Diagnosis Critical limb ischemia of left lower extremity with gangrene ([facility])- Primary documented in this encounter [facility] noteNo assessment information available [facility] Work Phone: History general Narrative [...] HIS LOWER BACK Hospitalization History see above [employer] Other Hospital Discharge instructions Additional Instructions You are scheduled for an outpatient follow up ECHOCARDIOGRAM in 2 weeks at [facility] to re-assess your pericardial effusions on 09/06/2020 [...] knee Educate on high risk fall precautions [facility] InstructionsNot on filedocumented in this encounter[facility] Assessments No Assessments Information Available Advance [...] 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 GERD (gastroesophageal reflux disease) Hypertension [id number] Obesities, morbid Peripheral vascular occlusive disease Status [...] 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 GERD (gastroesophageal reflux disease) Hypertension [id number] Obesities, morbid Peripheral vascular occlusive disease Status [...] 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 GERD (gastroesophageal reflux disease) Hypertension [id number] Obesities, morbid Peripheral vascular occlusive disease Status [...] content) DATE CREATED AUTHOR 09/11/2020 [facility] DATE CREATED AUTHOR AUTHOR'S ORGANIZ ATION 10/21/2020 [facility] [employer] DATE CREATED AUTHOR AUTHOR'S ORGANIZ ATION 10/05/2022 [facility] DATE CREATED AUTHOR AUTHOR'S ORGANIZ ATION 06/03/2023 [facility] DATE CREATED AUTHOR AUTHOR'S ORGANIZ ATION 11/22/2023 [facility] DATE CREATED AUTHOR AUTHOR'S ORGANIZ ATION 02/18/2024 [facility] DATE CREATED AUTHOR AUTHOR'S ORGANIZ ATION 09/03/2024 [facility] Goals (unrecognized section and content) Goals may be documented in a n alternate sectionNo InformationNot on filedocumented as of this encounterGoals may be documented in an alternate section REASON FOR VISIT (unrecogniz ed section and content) 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 Non healing. Care Teams (unrecognized sec tion and content) Manager Star Relationship Specialty Start Date End Date Jose Juarez Jr., [address] [place] [address] PCP - General Internal Medicine 02/10/17 Team [...] BE BASED ON THE PRIMARY CLINICAL RECORDS. [employer] provides no warranty or guarantee of the accuracy or completeness of information in this document.
[2024-10-24] MEDS: 0.9 % SODIUM CHLORIDE 1,000 ML 75 ML IV ×2 (02:08→15:38)
[2024-10-24] MEDS: VANCOMYCIN HCL 1,000 MG in 0.9 % SODIUM CHLORIDE 250 ML 250 MG IV (02:09)
[2024-10-24] MEDS: OXYCODONE HCL/ACETAMINOPHEN 5MG/325MG 2 TAB PO (03:14)
[2024-10-24 06:45] LABS: Basophils Percent Auto 0.3 % (0.2-2.0); Eosinophils Absolute Auto 0.1 10^3/uL (0.0-0.7); Eosinophils Percent Auto 0.5 % (0.9-7.0); Hematocrit 31.5 % (42.0-54.0); Hemoglobin 10.2 g/dL (14.0-18.0); Immature Granulocytes Abs Auto 0.15 10^3/uL (0.00-0.03); Immature Granulocytes Pct Auto 1.3 % (0.0-0.5); Lymphocytes Absolute Auto 1.4 10^3/uL (1.2-3.8); Lymphocytes Percent Auto 12.1 % (20.5-60.0); Mean Corpuscular HGB Conc 32.4 g/dL (29.9-35.2); Mean Corpuscular Hemoglobin 28.3 pg (25.9-34.0); Mean Corpuscular Volume 87.3 fL (80.0-94.0); Mean Platelet Volume 9.2 fL (9.5-13.5); Monocytes Absolute Auto 1.4 10^3/uL (0.3-0.8); Monocytes Percent Auto 12.1 % (1.7-12.0); Neutrophils Absolute Auto 8.5 10^3/uL (1.4-6.5); Neutrophils Percent Auto 73.7 % (43.0-75.0); Platelet Count 250 10^3/uL (150-450); Red Blood Count 3.61 10^6/uL (4.70-6.10); Red Cell Distribution Width 12.9 % (11.0-15.0); White Blood Count 11.6 10^3/uL (4.0-11.0)
[2024-10-24 07:01] LABS: Alanine Aminotransferase 62 U/L (16-63); Albumin Globulin Ratio 0.3; Albumin Level 1.6 g/dL (3.4-5.0); Alkaline Phosphatase 81 U/L (46-116); Anion Gap 19.1; Aspartate Amino Transferase 54 U/L (15-37); BUN Creatinine Ratio 14.7; Bilirubin Total 0.2 mg/dL (0.2-1.0); Calcium 8.6 mg/dL (8.5-10.1); Carbon Dioxide 15.2 mmol/L (21.0-32.0); Chloride 104 mmol/L (98-107); Estimated GFR (African America 14 (>=60 mL/min/1.73m^2); Estimated GFR (Non-African Ame 12 (>=60 mL/min/1.73m^2); Globulin 4.7 g/dL; Glucose 209 mg/dL (74-106); Potassium 4.3 mmol/L (3.5-5.1); Sodium 134 mmol/L (136-145); Total Protein 6.3 g/dL (6.4-8.2)
--- NOTE | 2024-10-24 07:12 | P.HP_ITS ---
HPI H&P: HPI History of Present Illness Chief complaint: LOWER EXTREMITY PAIN/SWELLING, NCROTIC R 2ND TOE, Narrative: Patient had a procedure 2 to 3 days prior to coming in, on his toe, dressing did not look bad the previous day but on the day of admission noticed dusky darkness to the toe, presented to the ER found to have what likely is gangrene of his right great toe. Patient has had fever and chills as well. Blood cultures obtained in ER When I saw patient up in the medical surgical floor, not really having any complaints, really having a lot of sensation in the foot. Opioid HPI Opioid Management Most Recent Pain and Opioid Data: Last Pain Scale 5 Today, 07:50 Last Pain Assessment Today, 01:00 Last MAR Pain Assessment Today, 03:14 Last ORT Total Score 0 Today, 00:23 Last ORT Risk Category Low Risk Today, 00:23 Review of Systems ROS Status of ROS 10 or more systems reviewed and unremark able except as noted in history and below PFSH PFSH Medical History Anemia in CKD (chronic kidney disease) ?N18.9 - Chronic kidney disease, unspecified (ICD-10) ?D63.1 - Anemia in chronic kidney disease (ICD-10) CKD (chronic kidney disease) stage 4, GFR 15-29 ml/min ?N18.4 - Chronic kidney disease, stage 4 (severe) (ICD-10) Type 2 diabetes mellitus with hyperglycemia ?E11.65 - Type 2 diabetes mellitus with hyperglycemia (ICD-10) Equinus contracture of left ankle ?M24.572 - Contracture, left ankle (ICD-10) Type 2 diabetes mellitus with diabetic 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 ?E11.42 - Type 2 diabetes mellitus with diabetic 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 (ICD-10) Type 2 diabetes mellitus with foot ulcer ?E11.621 - Type 2 diabetes mellitus with foot ulcer (ICD-10) ?L97.509 - Non-pressure chronic ulcer of other part of unspecified foot with unspecified severity (ICD-10) Ulcer of left foot with fat layer exposed ?L97.522 - Non-pressure chronic ulcer of other part of left foot with fat lay er exposed (ICD-10) Ulcer of right foot with necrosis of bone ?L97.514 - Non-pressure chronic ulcer of other part of right foot with necrosis of bone (ICD-10) Acute osteomyelitis of right foot ?M86.171 - Other acute osteomyelitis, right ankle and foot (ICD-10) Cellulitis of left leg ?L03.116 - Cellulitis of left lower limb (ICD-10) Infection of toe ?L08.9 - Local infection of the skin and subcutaneous tissue, unspecified (ICD-10) Hyperglycemia ?R73.9 - Hyperglycemia, unspecified (ICD-10) Diabetic ulcer of left foot ?E11.621 - Type 2 diabetes mellitus with foot ulcer (ICD-10) ?L97.529 - Non-pressure chronic ulcer of other part of left foot with unspecified severity (ICD-10) DM type 2 (diabetes mellitus, type 2) ?E11.9 - Type 2 diabetes mellitus without complications (ICD-10) CKD (chronic kidney disease) ?N18.9 - Chronic kidney disease, unspecified (ICD-10) CKD (chronic kidney disease) ?N18.9 - Chronic kidney disease, unspecified (ICD-10) Chronic wound ?T14.8XXA - Other injury of unspecified body region, initial encounter (ICD- 10) Immunocompromised ?D84.9 - Immunodeficiency, unspecified (ICD-10) Psoriasis ?L40.9 - Psoriasis, unspecified (ICD-10) Sepsis ?A41.9 - Sepsis, unspecified organism (ICD-10) Arteriovenous fistula of right upper extremity ?I77.0 - Arteriovenous fistula, acquired (ICD-10) Chronic kidney disease ?N18.9 - Chronic kidney disease, unspecified (ICD-10) Hyperlipidemia ?E78.5 - Hyperlipidemia, unspecified (ICD-10) Diabetes ?E11.9 - Type 2 diabetes mellitus without complications (ICD-10) Cellulitis of left leg ?L03.116 - Cellulitis of left lower limb (ICD-10) Surgical History History of transmetatarsal amputation of foot ?Z89.439 - Acquired absence of unspecified foot (ICD-10) History of appendectomy ?Z90.49 - Acquired absence of other specified parts of digestive tract (ICD- 10) History of cholecystectomy ?Z90.49 - Acquired absence of other specified parts of digestive tract (ICD- 10) Amputation of left great toe ?S98.112A - Complete traumatic amputation of left great toe, initial encounter (ICD-10) Family History Mother Family history of CHF (congestive heart failure) Family history of diabetes mellitus Family history of hypertension Grandfather Family history of stroke Social History (Updated 10/24/24 @ 00:49 by Felipa Mann RN) Within the past year, how often did you have a drink containing alcohol: never Within the past year, how many standard drinks containing alcohol did you have on a typical day: 1 or 2 Within the past year, how often did you have six or more drinks on one occasion: never Total score: 0 Score interpretation: A score less than 4 is consistent with normal alcohol consumption. Smoking status: Current some day smoker Second hand tobacco smoke exposure: No Non-prescribed substance use: denies use Previous occupational history: disabled Known occupational exposures/hazards: No Highest level of school completed/degree received: 11th grade Do you want help with school or training: No Are you now , , , , never or living with a partner: In a typical week, how many times do you talk on the telephone with family, friends, or neighbors: 3 or more times per week How often do you get together with friends or relatives: 3 or more times per week How often do you attend mandaeism or muslim services: never Do you belong to any clubs or organizations such as mandaeism groups unions, fraternal or athletic groups, or school groups: no Total score: 2 Score interpretation: A score of greater than or equal to 2 indicates the lowest level of social isolation. Little interest or pleasure in doing things: not at all Feeling down, depressed, or hopeless: not at all Feel stressed/tense/nervous/anxious/difficulty sleeping: not at all Do you think of yourself as: straight/heterosexual Gender Identity: male Meds Home Medications and Allergies Home Medications ?Medication ?Instructions ?Recorded ?Confirmed ?Type montelukast 10 mg tablet 10 mg PO .QHS 01/28/2310/23 History rosuvastatin 20 mg tablet 20 mg PO .QHS 01/28/2310/23 History vitamin B complex and vitamin C 1 cap PO QDAY 01/28/23 10/23/24 History no.20-folic acid 1 mg capsule (Renal Caps) bupropion HCl 300 mg 24 hr tablet, 300 mg PO QDAY 11/2810/23/24 History extended release finerenone 20 mg tablet (Kerendia) 20 mg PO QDAY 12/2310/23/24 History multivitamin with minerals-folic 1 tab PO QDAY 4 10/23/24 History acid 400 mcg-lycopene 370 mcg tablet (One-A-Day Men's 50 Plus) sodium bicarbonate 325 mg tablet 325 mg PO TID 4 10/23/24 History insulin aspart U-100 100 unit/mL 3 - 15 unit (0.03 - 0 .15 mL) 12/26/23 10/23/24 Rx (3 mL) subcutaneous pen (Novolog subcut ACHS #15 mL FlexPen U-100 Insulin aspart) insulin detemir U-100 100 unit/mL 30 unit (0.3 mL) sub cut QHS 30 12/26/23 10/23/24 Rx (3 mL) subcutaneous pen (Levemir days #9 mL FlexPen) duloxetine 60 mg capsule,delayed 60 mg PO .QHS 5 10/23/24 History release empagliflozin 25 mg tablet 25 mg PO DAILY 08/26/24 History (Jardiance) famotidine 20 mg tablet 20 mg PO .QHS 08/26/2410/23 History torsemide 20 mg tablet 40 mg PO QAM 08/26/24 History ciprofloxacin HCl 500 mg tablet 500 mg PO Q24H 5 10/23/24 History doxycycline monohydrate 100 mg 100 mg PO DAILY 5 10/23/24 History capsule Allergies Allergy/AdvReac Type Severity Reaction Status Date / Time No Known Drug Allergies Allergy Verified 10/23/24 22:01 Exam Constitutional Vital Signs, click to edit/add: Last Vital Signs Temp 98.0 F 10/24/24 00:59 Pulse 79 10/24/24 06:00 Resp 18 10/24/24 00:59 BP 174/75 H 10/24/24 00:59 Pulse Ox 98 10/24/24 00:59 O2 Del Method Room Air 10/24/24 00:59 Documenting provider has reviewed patient's vital signs: yes Common normals: no apparent distress Respiratory Common normals: normal respiratory effort and no retractions Cardio Common normals: regular rate, regular rhythm and no murmurs GI Common normals: soft to palpation and no hepatosplenomegaly; negative for Normal to inspection, nondistended, normoactive bowel sounds present (Morbid obesity) Extremity Common normals: abnormal to inspection (Dressing on bilateral feet, no erythema above the dressing) Results Labs Labs: Short CBC 10/23/24 10/24/24 Range/Units 22:30 06:01 WBC 11.8 H 11.6 H (4.0-11.0) 10^3/uL Hgb 11.9 L 10.2 L (14.0-18.0) g/dL Hct 36.1 L 31.5 L (42.0-54.0) % Plt Count 274 250 (150-450) 10^3/uL BMP 10/23/24 22:30 Sodium 129 L Potassium 4.9 Chloride 96 L Carbon Dioxide 17.3 L BUN 74.0 H Creatinine 4.92 H Glucose 302 H Calcium 9.2 Liver Function 10/23/24 Range/Units 22:30 Total Bilirubin 0.2 (0.2-1.0) mg/dL AST 60 H (15-37) U/L ALT 74 H (16-63) U/L Alkaline Phosphatase 104 (46-116) U/L Albumin 2.0 L (3.4-5.0) g/dL Assessment and Plan Assessment and Plan (1) Skin ulcer of second toe of right foot with necrosis of muscle: (2) Anemia in CKD (chronic kidney disease): (3) CKD (chronic kidney disease) stage 4, GFR 15-29 ml/min: (4) Type 2 diabetes mellitus with diabetic 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: (5) Infection of toe: (6) Diabetic ulcer of left foot: 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 involvement without evidence of necrosis (7) Immunocompromised: Plan Admission findings: Sinus tachycardia, uncontrolled hypertension, leukocytosis secondary to right great toe infection and likely gangrene leading to sepsis Sepsis due to right great toe infection as a complication of his poorly controlled diabetes with immunodeficiency secondary to poorly controlled diabetes-IV antibiotics, holding off on vancomycin secondary to renal failure, will use Zosyn and linezolid, consult to podiatry Diabetes mellitus-poorly controlled-insulin sliding scale Acute kidney injury stage I on top of chronic kidney disease stage IV-baseline creatinine is 3.42 that was done a couple months ago, creatinine now over 5 whi would put him over 150% above baseline with decreased urine output in the last 6 hours resulting in stage I acute kidney injury-gentle hydration Anemia of chronic kidney disease-monitor with daily-Down slightly today Hyponatremia on admission-improved Elevated liver function test likely secondary to the sepsis as outlined above- improved today Depression-continue with home medications Edema-holding off on diuretics secondary to renal failure as outlined above Admission status: Patient admitted, inpatient secondary to necrosis of right great toe and likely need for surgical intervention after stabilized with IV antibiotics, medically necessary treatment will span 2 midnights. Inpatient status
[2024-10-24 07:28] LABS: Magnesium 2.4 mg/dL (1.8-2.4)
[2024-10-24 07:28] LABS: Glucometer 226 mg/dL (74-106)
[2024-10-24 07:44] LABS: PCO2 VBG 31.6 mmHg (40.0-52.0)
[2024-10-24] MEDS: INSULIN ASPART 300 UNIT/3 ML PEN SUBQ ×4 (07:59→21:10)
[2024-10-24] MEDS: JUVEN PACKET 1 PACKET PO ×2 (08:14→20:58)
[2024-10-24] MEDS: HEPARIN SODIUM (PORCINE) 5,000 UNIT/ML VIAL 5000 UNIT SUBQ ×2 (08:14→20:59)
[2024-10-24] MEDS: CANAGLIFLOZIN 100 MG TABLET 300 MG PO (08:15)
[2024-10-24] MEDS: MULTIVITAMIN TABLET 1 TAB PO (08:15)
[2024-10-24] MEDS: CARVEDILOL 6.25 MG TABLET PO ×2 (08:15→20:59)
[2024-10-24] MEDS: LINEZOLID IN DEXTROSE 5% 600 MG/300 ML PIGGYBACK 300 MG IV ×2 (09:27→20:58)
[2024-10-24] MEDS: TRAMADOL HCL 50 MG TABLET PO (09:30)
[2024-10-24] MEDS: B COMPLEX/FOLIC ACID SOFTGEL CAPSULE 1 CAP PO (09:36)
[2024-10-24 10:56] LABS: Glucometer 280 mg/dL (74-106)
[2024-10-24] MEDS: LACTATED RINGER'S SOLUTION 1,000 ML 250 ML IV (11:32)
[2024-10-24] MEDS: PIPERACILLIN SODIUM/TAZOBACTAM 3.375 GM in 0.9 % SODIUM CHLORIDE 50 ML IV (11:32)
[2024-10-24] MEDS: OXYCODONE HCL/ACETAMINOPHEN 5MG/325MG 1 TAB PO ×2 (13:52→20:59)
[2024-10-24] MEDS: SODIUM BICARBONATE 325 MG TABLET PO ×2 (13:52→20:59)
[2024-10-24 15:49] LABS: Glucometer 240 mg/dL (74-106)
--- NOTE | 2024-10-24 16:23 | PM.CN ---
Consult Note: [facility] Data of Consult Consult date: 10/24/24 Requesting Physician: Shay Rodriguez MD Primary Care Provider: GABRIEL JUAREZ DO Consult Narrative Reason for consult: Right 2nd toe infection/diabetic foot infection Narrative: Mr Lyman presented to the ER on 10.23.24 with ulceration & infection of the right second toe associated with fever that started on 10.22.24. He underwent right partial hallux amputation due to acute osteomyelitis. This was complicated by dehiscence but has been responding to local wound care and overall had been doing well. Then this week he presented to wound center with a new ulcer on the right 2nd toe. Reportedly when performing dressing change on 10.22.24 dressing change was performed and the site looked healthy. However, he spiked a fever later that day and in the ER the toe appeared acutely infected and necrotic. In the ER he was afebrile,tachycardic and hypertensive. Labs revealed leukocytosis of 11,800 (today is 11,600), ESR >130, CRP of 23.12, with prerenal azotemia and today a Cr of 5.03. Xrays in the ER showed no soft tissue emphysema or acute osseous changes. He was admitted by Dr. Rodriguez who consulted me and is treating acute kidney injury in setting of stage IV CKD. He meets sepsis protocol and recieving zosyn & linezolid. Blood cultures pending. Today at bedside patient denies pain and feels slightly better. cc:: CC: Shay Rodrigeuz MD Review of Systems ROS Status of ROS 10 or more systems reviewed and unremarkable except as noted in history and below Constitutional Reports: fever, chills, malaise and night sweats Cardiovascular Reports: swelling of feet/ankles [facility] Medical History (Updated 10/24/24 @ 17:07 by Imer Zambrano DPM) Acute osteomyelitis of right foot ?M86.171 - Other acute osteomyelitis, right ankle and foot (ICD-10) Anemia in CKD (chronic kidney disease) ?N18.9 - Chronic kidney disease, unspecified (ICD-10) ?D63.1 - Anemia in chronic kidney disease (ICD-10) CKD (chronic kidney disease) stage 4, GFR 15-29 ml/min ?N18.4 - Chronic kidney disease, stage 4 (severe) (ICD-10) Type 2 diabetes mellitus with hyperglycemia ?E11.65 - Type 2 diabetes mellitus with hyperglycemia (ICD-10) Equinus contracture of left ankle ?M24.572 - Contracture, left ankle (ICD-10) Type 2 diabetes mellitus with diabetic 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 ?E11.42 - Type 2 diabetes mellitus with diabetic 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 (ICD-10) Type 2 diabetes mellitus with foot ulcer ?E11.621 - Type 2 diabetes mellitus with foot ulcer (ICD-10) ?L97.509 - Non-pressure chronic ulcer of other part of unspecified foot with unspecified severity (ICD-10) Ulcer of left foot with fat layer exposed ?L97.522 - Non-pressure chronic ulcer of other part of left foot with fat layer exposed (ICD-10) Ulcer of right foot with necrosis of bone ?L97.514 - Non-pressure chronic ulcer of other part of right foot with necrosis of bone (ICD-10) Cellulitis of left leg ?L03.116 - Cellulitis of left lower limb (ICD-10) Infection of toe ?L08.9 - Local infection of the skin and subcutaneous tissue, unspecified (ICD-10) Hyperglycemia ?R73.9 - Hyperglycemia, unspecified (ICD-10) Diabetic ulcer of left foot ?E11.621 - Type 2 diabetes mellitus with foot ulcer (ICD-10) ?L97.529 - Non-pressure chronic ulcer of other part of left foot with unspecified severity (ICD-10) DM type 2 (diabetes mellitus, type 2) ?E11.9 - Type 2 diabetes mellitus without complications (ICD-10) CKD (chronic kidney disease) ?N18.9 - Chronic kidney disease, unspecified (ICD-10) CKD (chronic kidney disease) ?N18.9 - Chronic kidney disease, unspecified (ICD-10) Chronic wound ?T14.8XXA - Other injury of unspecified body region, initial encounter (ICD-10) Immunocompromised ?D84.9 - Immunodeficiency, unspecified (ICD-10) Psoriasis ?L40.9 - Psoriasis, unspecified (ICD-10) Sepsis ?A41.9 - Sepsis, unspecified organism (ICD-10) Arteriovenous fistula of right upper extremity ?I77.0 - Arteriovenous fistula, acquired (ICD-10) Chronic kidney disease ?N18.9 - Chronic kidney disease, unspecified (ICD-10) Hyperlipidemia ?E78.5 - Hyperlipidemia, unspecified (ICD-10) Diabetes ?E11.9 - Type 2 diabetes mellitus without complications (ICD-10) Cellulitis of left leg ?L03.116 - Cellulitis of left lower limb (ICD-10) Surgical History History of transmetatarsal amputation of foot ?Z89.439 - Acquired absence of unspecified foot (ICD-10) History of appendectomy ?Z90.49 - Acquired absence of other specified parts of digestive tract (ICD-10) History of cholecystectomy ?Z90.49 - Acquired absence of other specified parts of digestive tract (ICD-10) Amputation of left great toe ?S98.112A - Complete traumatic amputation of left great toe, initial encounter (ICD-10) Family History Mother Family history of CHF (congestive heart failure) Family history of diabetes mellitus Family history of hypertension Grandfather Family history of stroke Social History (Updated 10/24/24 @ 00:49 by Felipa Mann RN) Within the past year, how often did you have a drink containing alcohol: never Within the past year, how many standard drinks containing alcohol did you have on a typical day: 1 or 2 Within the past year, how often did you have six or more drinks on one occasion: never Total score: 0 Score interpretation: A score less than 4 is consistent with normal alcohol consumption. Smoking status: Current some day smoker Second hand tobacco smoke exposure: No Non-prescribed substance use: denies use Previous occupational history: disabled Known occupational exposures/hazards: No Highest level of school completed/degree received: 11th grade Do you want help with school or training: No Are you now , , , , never or living with a partner: In a typical week, how many times do you talk on the telephone with family, friends, or neighbors: 3 or more times per week How often do you get together with friends or relatives: 3 or more times per week How often do you attend latter-day or rastafari services: never Do you belong to any clubs or organizations such as latter-day groups unions, fraternal or athletic groups, or school groups: no Total score: 2 Score interpretation: A score of greater than or equal to 2 indicates the lowest level of social isolation. Little interest or pleasure in doing things: not at all Feeling down, depressed, or hopeless: not at all Feel stressed/tense/nervous/anxious/difficulty sleeping: not at all Do you think of yourself as: straight/heterosexual Gender Identity: male Meds Home Medications and Allergies Home Medications ?Medication ?Instructions ?Recorded ?Confirmed ?Type montelukast 10 mg tablet 10 mg PO .QHS 01/28/23 10/23/24 History rosuvastatin 20 mg tablet 20 mg PO .QHS 01/28/23 10/23/24 History vitamin B complex and vitamin C 1 cap PO QDAY 01/28/23 10/23/24 History no.20-folic acid 1 mg capsule (Renal Caps) bupropion HCl 300 mg 24 hr tablet, 300 mg PO QDAY 12/24/23 10/23/24 History extended release finerenone 20 mg tablet (Kerendia) 20 mg PO QDAY 12/24/23 10/23/24 History multivitamin with minerals-folic 1 tab PO QDAY 12/24/23 10/23/24 History acid 400 mcg-lycopene 370 mcg tablet (One-A-Day Men's 50 Plus) sodium bicarbonate 325 mg tablet 325 mg PO TID 12/25/23 10/23/24 History insulin aspart U-100 100 unit/mL 3 - 15 unit (0.03 - 0.15 mL) 12/26/23 10/23/24 Rx (3 mL) subcutaneous pen (Novolog subcut ACHS #15 mL FlexPen U-100 Insulin aspart) insulin detemir U-100 100 unit/mL 30 unit (0.3 mL) subcut QHS 30 12/26/23 10/23/24 Rx (3 mL) subcutaneous pen (Levemir days #9 mL FlexPen) duloxetine 60 mg capsule,delayed 60 mg PO .QHS 08/26/24 10/23/24 History release empagliflozin 25 mg tablet 25 mg PO DAILY 08/26/24 10/23/24 History (Jardiance) famotidine 20 mg tablet 20 mg PO .QHS 08/26/24 10/23/24 History torsemide 20 mg tablet 40 mg PO QAM 08/26/24 10/23/24 History ciprofloxacin HCl 500 mg tablet 500 mg PO Q24H 10/23/24 10/23/24 History doxycycline monohydrate 100 mg 100 mg PO DAILY 10/23/24 10/23/24 History capsule Allergies Allergy/AdvReac Type Severity Reaction Status Date / Time No Known Drug Allergies Allergy Verified 10/23/24 22:01 Exam Narrative Exam Narrative: Right foot: There is eschar to the distal pulp of the second toe and ulceration with exposed distal phalanx. The second toe is severely swollen and approximately 3 times normal size. Maceration is noted circumferentially around the base of the toe with erythema from the eschar to the MPJ. Previous partial hallux and partial fifth ray amputations are noted. Pedal pulses are faintly palpable with absent digital hair. Minimal swelling noted to the dorsal right foot with no ascending erythema. Profound peripheral neuropathy with absent protective and vibratory sensation Left foot: Full-thickness ulceration down to the level of fat and fascia with a granular wound bed and no surrounding signs of infection Constitutional Vital Signs, click to edit/add: Last Vital Signs Temp 99 F 10/24/24 15:17 Pulse 86 10/24/24 15:17 Resp 20 10/24/24 15:17 BP 158/75 H 10/24/24 15:17 Pulse Ox 93 L 10/24/24 15:17 O2 Del Method Room Air 10/24/24 15:17 Results Labs Labs: Short CBC 10/23/24 10/24/24 Range/Units 22:30 06:01 WBC 11.8 H 11.6 H (4.0-11.0) 10^3/uL Hgb 11.9 L 10.2 L (14.0-18.0) g/dL Hct 36.1 L 31.5 L (42.0-54.0) % Plt Count 274 250 (150-450) 10^3/uL BMP 10/23/24 10/24/24 22:30 06:01 Sodium 129 L 134 L Potassium 4.9 4.3 Chloride 96 L 104 Carbon Dioxide 17.3 L 15.2 L BUN 74.0 H 74.0 H Creatinine 4.92 H 5.03 H* Glucose 302 H 209 H Calcium 9.2 8.6 Liver Function 10/23/24 10/24/24 Range/Units 22:30 06:01 Total Bilirubin 0.2 0.2 (0.2-1.0) mg/dL AST 60 H 54 H (15-37) U/L ALT 74 H 62 (16-63) U/L Alkaline Phosphatase 104 81 (46-116) U/L Albumin 2.0 L 1.6 L (3.4-5.0) g/dL ABG ABG results: 10/24/24 07:37 VBG pH 7.250 L VBG pCO2 31.6 L Assessment and Plan Assessment and Plan (1) Anemia in CKD (chronic kidney disease): (2) CKD (chronic kidney disease) stage 4, GFR 15-29 ml/min: (3) Type 2 diabetes mellitus with diabetic 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: (4) Infection of toe: (5) Diabetic ulcer of left foot: Qualifiers: Diabetes mellitus type: type 2 Diabetic foot ulcer location: midfoot Non-pressure ulcer stage: with muscle involvement without evidence of necrosis Qualified Code(s): E11.621 - Type 2 diabetes mellitus with foot ulcer; L97.425 - Non-pressure chronic ulcer of left heel and midfoot with muscle involvement without evidence of necrosis (6) Immunocompromised: (7) Ulcer of right second toe with necrosis of bone: (8) Acute osteomyelitis of right foot: Plan Patient seen at bedside and although he is feeling somewhat better since being admitted he demonstrates signs and symptoms of severe diabetic foot infection with sepsis. I recommended staged amputation with emergent second toe amputation performed under local anesthesia given there is no anesthesia coverage over the weekend which Mr. Lyman adamantly refused. Given his prior amputations he ultimately will require a transmetatarsal amputation therefore given his refusal to undergo second toe amputation under local we will plan for transmetatarsal amputation on Saturday. He is hemodynamically stable but if this changes he may require transfer given his life and limb threatening illness. Patient understands the risks and potential complications as well as that he is immunocompromise given his poorly controlled diabetes and history of nontraumatic amputations involving both feet. Dr. Rodriguez was updated Please call with any updates or changes in the patient's status
[2024-10-24] MEDS: MONTELUKAST SODIUM 10 MG TABLET PO (21:06)
[2024-10-24] MEDS: FAMOTIDINE 20 MG TABLET PO (21:06)
[2024-10-24 21:14] LABS: Glucometer 188 mg/dL (74-106)
[2024-10-25] VITALS (8 sets, daily range): BP systolic 106–158; BP diastolic 52–72; PULSE 72–95; TEMP 36.6–37.2; O2SAT 91–96
[2024-10-25] MEDS: PIPERACILLIN SODIUM/TAZOBACTAM 3.375 GM in 0.9 % SODIUM CHLORIDE 50 ML IV ×3 (00:36→23:49)
[2024-10-25] MEDS: OXYCODONE HCL/ACETAMINOPHEN 5MG/325MG 1 TAB PO ×3 (02:54→23:49)
[2024-10-25] MEDS: SODIUM BICARBONATE 325 MG TABLET PO ×5 (05:14→20:43)
[2024-10-25] MEDS: 0.9 % SODIUM CHLORIDE 1,000 ML 75 ML IV ×2 (05:14→18:14)
[2024-10-25 06:32] LABS: Hematocrit 31.1 % (42.0-54.0); Hemoglobin 10.2 g/dL (14.0-18.0); Mean Corpuscular HGB Conc 32.8 g/dL (29.9-35.2); Mean Corpuscular Hemoglobin 28.7 pg (25.9-34.0); Mean Corpuscular Volume 87.6 fL (80.0-94.0); Mean Platelet Volume 9.1 fL (9.5-13.5); Platelet Count 229 10^3/uL (150-450); Red Blood Count 3.55 10^6/uL (4.70-6.10); White Blood Count 12.2 10^3/uL (4.0-11.0)
[2024-10-25 06:44] LABS: Alanine Aminotransferase 54 U/L (16-63); Albumin Globulin Ratio 0.3; Albumin Level 1.4 g/dL (3.4-5.0); Alkaline Phosphatase 74 U/L (46-116); Anion Gap 18.5; Aspartate Amino Transferase 49 U/L (15-37); BUN Creatinine Ratio 17.2; Bilirubin Total 0.2 mg/dL (0.2-1.0); C Reactive Protein 24.31 mg/dL (<=0.50); Calcium 8.7 mg/dL (8.5-10.1); Chloride 102 mmol/L (98-107); Estimated GFR (African America 15 (>=60 mL/min/1.73m^2); Estimated GFR (Non-African Ame 12 (>=60 mL/min/1.73m^2); Globulin 4.3 g/dL; Glucose 274 mg/dL (74-106); Magnesium 2.2 mg/dL (1.8-2.4); Potassium 4.5 mmol/L (3.5-5.1); Sodium 131 mmol/L (136-145); Total Protein 5.7 g/dL (6.4-8.2)
[2024-10-25 06:46] LABS: Eosinophils Absolute Manual 0.36 10^3/uL (0.00-0.70); Lymphocytes Absolute Manual 1.83 10^3/uL (1.20-3.80); Monocytes Absolute Manual 1.46 10^3/uL (0.30-0.80); Segmented Neut Absolute Manual 8.54 10^3/uL (1.4-6.5)
[2024-10-25 08:01] LABS: Glucometer 293 mg/dL (74-106)
--- NOTE | 2024-10-25 08:39 | P.PN_ITS ---
Progress Note: Subjective Subjective Interval history: No complaints this morning, up at bedside eating breakfast, pain medicine helping his low back sciatica type pain Exam Constitutional Vital Signs, click to edit/add: Last Vital Signs Temp 98.5 F 10/25/24 04:00 Pulse 77 10/25/24 04:00 Resp 18 10/25/24 04:00 BP 131/67 10/25/24 04:00 Pulse Ox 93 L 10/25/24 04:00 O2 Del Method Room Air 10/25/24 04:00 Documenting provider has reviewed patient's vital signs: yes Common normals: no apparent distress Respiratory Common normals: normal respiratory effort and clear to auscultation bilaterally Effort & inspection: able to speak in complete sentences Cardio Common normals: regular rate, regular rhythm, no gallops and no clicks GI Common normals: soft to palpation and no hepatosplenomegaly; negative for Normal to inspection, nondistended, normoactive bowel sounds present (Morbid obesity) Extremity Common normals: abnormal to inspection (Dressing on bilateral feet, no erythema above the dressing) Progress Note: Objective Labs Labs: Short CBC 10/25/24 Range/Units 06:00 WBC 12.2 H (4.0-11.0) 10^3/uL Hgb 10.2 L (14.0-18.0) g/dL Hct 31.1 L (42.0-54.0) % Plt Count 229 (150-450) 10^3/uL BMP 10/25/24 06:00 Sodium 131 L Potassium 4.5 Chloride 102 Carbon Dioxide 15.0 L BUN 84.0 H* Creatinine 4.89 H Glucose 274 H Calcium 8.7 Liver Function 10/25/24 Range/Units 06:00 Total Bilirubin 0.2 (0.2-1.0) mg/dL AST 49 H (15-37) U/L ALT 54 (16-63) U/L Alkaline Phosphatase 74 (46-116) U/L Albumin 1.4 L (3.4-5.0) g/dL Progress Note: A&P Assessment and Plan (1) Anemia in CKD (chronic kidney disease): (2) CKD (chronic kidney disease) stage 4, GFR 15-29 ml/min: (3) Type 2 diabetes mellitus with diabetic 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: (4) Infection of toe: (5) Diabetic ulcer of left foot: Qualifiers: Diabetes mellitus type: type 2 Diabetic foot ulcer location: midfoot Non-pressure ulcer stage: with muscle involvement without evidence of necrosis Qualified Code(s): E11.621 - Type 2 diabetes mellitus with foot ulcer; L97.425 - Non-pressure chronic ulcer of left heel and midfoot with muscle involvement without evidence of necrosis (6) Immunocompromised: (7) Ulcer of right second toe with necrosis of bone: (8) Acute osteomyelitis of right foot: Plan Admission findings: Sinus tachycardia, uncontrolled hypertension, leukocytosis secondary to right great toe infection and likely gangrene leading to sepsis Sepsis due to right great toe infection as a complication of his poorly controlled diabetes with immunodeficiency secondary to poorly controlled diabetes-white blood cell count slightly elevated maintain current antibiotics, surgical intervention tomorrow Diabetes mellitus-poorly controlled-insulin sliding scale-adjusted Acute kidney injury stage I on top of chronic kidney disease stage IV-baseline creatinine is 3.42 that was done a couple months ago, creatinine now over 5 which would put him over 150% above baseline with decreased urine output in the last 6 hours resulting in stage I acute kidney injury--improved today Chronic metabolic acidosis secondary to chronic kidney disease-repeat venous blood gas in a.m. Anemia of chronic kidney disease-monitor with daily-Down slightly today Hyponatremia on admission-down slightly today, increase oral supplementation Elevated liver function test likely secondary to the sepsis as outlined above- improved today Depression-continue with home medications Edema-holding off on diuretics secondary to renal failure as outlined above Admission status: Patient admitted, inpatient secondary to necrosis of right great toe and likely need for surgical intervention after stabilized with IV antibiotics, medically necessary treatment will span 2 midnights. Inpatient status ?
[2024-10-25] MEDS: JUVEN PACKET 1 PACKET PO ×2 (09:13→20:42)
[2024-10-25] MEDS: HEPARIN SODIUM (PORCINE) 5,000 UNIT/ML VIAL 5000 UNIT SUBQ ×2 (09:13→20:43)
[2024-10-25] MEDS: MULTIVITAMIN TABLET 1 TAB PO (09:14)
[2024-10-25] MEDS: ENSURE HP 237 ML LIQUID PO (09:14)
[2024-10-25] MEDS: B COMPLEX/FOLIC ACID SOFTGEL CAPSULE 1 CAP PO (09:14)
[2024-10-25] MEDS: ACETAMINOPHEN 500 MG TABLET 1000 MG PO ×2 (09:14→20:43)
[2024-10-25] MEDS: CARVEDILOL 6.25 MG TABLET PO ×2 (09:14→20:43)
[2024-10-25] MEDS: INSULIN GLARGINE 300 UNIT/3 ML INSULN.PEN 30 UNIT SQ (09:15)
[2024-10-25] MEDS: LINEZOLID IN DEXTROSE 5% 600 MG/300 ML PIGGYBACK 300 MG IV ×2 (09:15→20:42)
[2024-10-25] MEDS: INSULIN ASPART 300 UNIT/3 ML PEN SUBQ ×4 (09:17→20:47)
--- NOTE | 2024-10-25 09:33 | PM.PN ---
Progress Note: Subjective Subjective Interval history: Mr. Lyman was seen at bedside resting comfortably. Relates to chills overnight but has remained afebrile and no acute events. He relates his appetite is good and denies pain. He is hypertensive and tachycardic. Leukocytosis at 12,200, creatinine 4.89 and BUN 84.0. Exam Narrative Exam Narrative: Right second toe with eschar and necrosis with erythema to the MPJ level. Toe remains severely swollen however dorsal foot has very minimal swelling. No ascending erythema. Left foot ulcer remains without signs of infection and full-thickness Constitutional Vital Signs, click to edit/add: Last Vital Signs Temp 98.9 F 10/25/24 09:14 Pulse 95 H 10/25/24 08:43 Resp 18 10/25/24 08:43 BP 158/72 H 10/25/24 08:43 Pulse Ox 95 10/25/24 08:43 O2 Del Method Room Air 10/25/24 08:43 Progress Note: Objective Labs Labs: Short CBC 10/25/24 Range/Units 06:00 WBC 12.2 H (4.0-11.0) 10^3/uL Hgb 10.2 L (14.0-18.0) g/dL Hct 31.1 L (42.0-54.0) % Plt Count 229 (150-450) 10^3/uL BMP 10/25/24 06:00 Sodium 131 L Potassium 4.5 Chloride 102 Carbon Dioxide 15.0 L BUN 84.0 H* Creatinine 4.89 H Glucose 274 H Calcium 8.7 Liver Function 10/25/24 Range/Units 06:00 Total Bilirubin 0.2 (0.2-1.0) mg/dL AST 49 H (15-37) U/L ALT 54 (16-63) U/L Alkaline Phosphatase 74 (46-116) U/L Albumin 1.4 L (3.4-5.0) g/dL Progress Note: A&P Assessment and Plan (1) Anemia in CKD (chronic kidney disease): (2) CKD (chronic kidney disease) stage 4, GFR 15-29 ml/min: (3) Type 2 diabetes mellitus with diabetic 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: (4) Infection of toe: (5) Diabetic ulcer of left foot: 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 involvement without evidence of necrosis (6) Immunocompromised: (7) Ulcer of right second toe with necrosis of bone: (8) Acute osteomyelitis of right foot: Plan Patient scheduled for surgery tomorrow tentatively 10am. N.p.o. after midnight. Patient will likely be placed in a splint versus total contact cast following surgery and will be able to place partial weight to the right heel with use of walker. Blood cultures remain pending. Continue broad-spectrum antibiotics per Dr. Rodriguez/hospitalist. I reiterated the seriousness of his diabetic foot infection being limb and life-threatening as well as his kidney function. Please call with updates in any change in status
[2024-10-25 11:38] LABS: Glucometer 271 mg/dL (74-106)
[2024-10-25 16:30] LABS: Glucometer 191 mg/dL (74-106)
[2024-10-25] MEDS: MONTELUKAST SODIUM 10 MG TABLET PO (20:43)
[2024-10-25] MEDS: FAMOTIDINE 20 MG TABLET PO (20:43)
[2024-10-25 20:56] LABS: Glucometer 173 mg/dL (74-106)
[2024-10-26] VITALS (7 sets, daily range): BP systolic 100–118; BP diastolic 47–69; PULSE 64–74; TEMP 36.2–36.6; O2SAT 94–100; BMI 32.1
[2024-10-26] MEDS: OXYCODONE HCL/ACETAMINOPHEN 5MG/325MG 1 TAB PO (04:45)
[2024-10-26] MEDS: SODIUM BICARBONATE 325 MG TABLET PO ×2 (05:33→13:13)
[2024-10-26 05:48] LABS: Basophils Percent Auto 0.2 % (0.2-2.0); Eosinophils Absolute Auto 0.4 10^3/uL (0.0-0.7); Hematocrit 26.8 % (42.0-54.0); Hemoglobin 8.9 g/dL (14.0-18.0); Immature Granulocytes Abs Auto 0.12 10^3/uL (0.00-0.03); Lymphocytes Absolute Auto 1.8 10^3/uL (1.2-3.8); Mean Corpuscular HGB Conc 33.2 g/dL (29.9-35.2); Mean Corpuscular Hemoglobin 28.9 pg (25.9-34.0); Mean Platelet Volume 8.8 fL (9.5-13.5); Monocytes Absolute Auto 1.5 10^3/uL (0.3-0.8); Monocytes Percent Auto 11.9 % (1.7-12.0); Neutrophils Absolute Auto 8.7 10^3/uL (1.4-6.5); Neutrophils Percent Auto 69.9 % (43.0-75.0); Platelet Count 235 10^3/uL (150-450); Red Blood Count 3.08 10^6/uL (4.70-6.10); Red Cell Distribution Width 13.2 % (11.0-15.0); White Blood Count 12.5 10^3/uL (4.0-11.0)
[2024-10-26 06:03] LABS: PCO2 VBG 30.8 mmHg (40.0-52.0); pH VBG 7.296 (7.330-7.430)
[2024-10-26 06:04] LABS: Magnesium 2.3 mg/dL (1.8-2.4)
[2024-10-26 06:10] LABS: Alanine Aminotransferase 86 U/L (16-63); Albumin Globulin Ratio 0.3; Albumin Level 1.4 g/dL (3.4-5.0); Alkaline Phosphatase 83 U/L (46-116); Anion Gap 18.8; Aspartate Amino Transferase 85 U/L (15-37); BUN Creatinine Ratio 17.8; Bilirubin Total 0.2 mg/dL (0.2-1.0); C Reactive Protein 23.66 mg/dL (<=0.50); Calcium 8.6 mg/dL (8.5-10.1); Carbon Dioxide 16.9 mmol/L (21.0-32.0); Chloride 104 mmol/L (98-107); Estimated GFR (African America 14 (>=60 mL/min/1.73m^2); Estimated GFR (Non-African Ame 11 (>=60 mL/min/1.73m^2); Globulin 4.5 g/dL; Glucose 181 mg/dL (74-106); Potassium 4.7 mmol/L (3.5-5.1); Sodium 135 mmol/L (136-145); Total Protein 5.9 g/dL (6.4-8.2)
--- NOTE | 2024-10-26 06:32 | P.DS_ITS ---
DS: Providers Provider Date of admission: 10/24/24 00:13 Primary care physician: GABRIEL JUAREZ DO Consults: 10/23/24 23:43 Consult to Podiatry Routine Consulting Provider: Imer Zambrano Reason for consultation: Necrotic right 2nd toe 10/24/24 07:03 Consult to Pharmacy Routine Consulting Provider: Reason for consultation: Please [place] me when Med Rec is Updated Has provider been notified: No Occupational Therapy Eval and Treat Routine Reason for consultation: Only if needed for Rehab Has provider been notified: No Physical Therapy Eval and Treat Routine Reason for consultation: Eval and Treat Has provider been notified: No DS: Diagnosis Discharge Diagnosis (1) Anemia in CKD (chronic kidney disease): (2) CKD (chronic kidney disease) stage 4, GFR 15-29 ml/min: (3) Type 2 diabetes mellitus with diabetic 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: (4) Infection of toe: (5) Diabetic ulcer of left foot: 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 involvement without evidence of necrosis (6) Immunocompromised: (7) Ulcer of right second toe with necrosis of bone: (8) Acute osteomyelitis of right foot: Plan Admission findings: Sinus tachycardia, respiratory distress, severe anemia secondary to blood loss acute, hemoglobin less than 5, thrombocytopenia and h yponatremia due to uncontrolled diabetes mellitus Severe acute blood loss anemia secondary to hematuria-possible myeloproliferative disorder as well with thrombocytopenia-received a total of 4 units, hemoglobin is down slightly from previous day but still improved overall, hematuria is less today, maintain every 3 hour manual bladder irrigations and continuous bladder, n.p.o. at midnight in case not improved Poorly controlled diabetes mellitus-insulin sliding scale-adjusted Thrombocytopenia-possible myeloproliferative disorder,-Down slightly today Hyponatremia the--improved to normal Hypokalemia-supplement Hypertension-continue home medications GERD continue with home medications Hypomagnesemia continue his home medications Admission status: Hematuria, pretty severe, required multiple units of transfusion, patient was started off his observation, if failing initial observational time. Should be changed to inpatient status as medically necessary treatment will persist past 2 midnights DS: Summary Time Spent with Patient Time attestation: Total time spent providing and/or coordinating discharge services: Exam Constitutional Vital Signs, click to edit/add: Last Vital Signs Temp 97.9 F 10/26/24 03:15 Pulse 74 10/26/24 03:15 Resp 18 10/26/24 03:15 BP 116/64 10/26/24 03:15 Pulse Ox 95 10/26/24 03:15 O2 Del Method Room Air 10/26/24 03:15 DS: Data Data Completed and Pending Labs on day of discharge: Labs from last 24 hours 10/26/24 10/25/24 10/25/24 05:37 20:47 16:28 WBC 12.5 H RBC 3.08 L Hgb 8.9 L Hct 26.8 L MCV 87.0 MCH 28.9 MCHC 33.2 RDW 13.2 Plt Count 235 MPV 8.8 L Neut % (Auto) 69.9 Lymph % (Auto) 14.0 L [place] % (Auto) 11.9 Eos % (Auto) 3.0 Baso % (Auto) 0.2 Neut # (Auto) 8.7 H Lymph # (Auto) 1.8 [place] # (Auto) 1.5 H Eos # (Auto) 0.4 Baso # (Auto) 0.0 Abs Immat Gran (auto) 0.12 H Seg Neuts % (Manual) Lymphocytes % (Manual) Monocytes % (Manual) Eosinophils % (Manual) Basophils % (Manual) Imm/Tot Granulo (auto) 1.0 H Neutrophils # (Manual) Lymphocytes # (Manual) Monocytes # (Manual) Eosinophils # (Manual) Basophils # (Manual) VBG pH 7.296 L VBG pCO2 30.8 L Sodium 135 L Potassium 4.7 Chloride 104 Carbon Dioxide 16.9 L Anion Gap 18.8 BUN 91.0 H* Creatinine 5.12 H* Est GFR ( Amer) 14 L Est GFR (Non-Af Amer) 11 L BUN/Creatinine Ratio 17.8 Glucose 181 H Calcium 8.6 Magnesium 2.3 Total Bilirubin 0.2 AST 85 H ALT 86 H Alkaline Phosphatase 83 C-Reactive Protein 23.66 H Total Protein 5.9 L Albumin 1.4 L Globulin 4.5 Albumin/Globulin Ratio 0.3 POC Glucose 173 H 191 H 10/25/24 10/25/24 10/25/24 11:36 07:59 06:00 WBC 12.2 H RBC 3.55 L Hgb 10.2 L Hct 31.1 L MCV 87.6 MCH 28.7 MCHC 32.8 RDW 13.0 Plt Count 229 MPV 9.1 L Neut % (Auto) Lymph % (Auto) [place] % (Auto) Eos % (Auto) Baso % (Auto) Neut # (Auto) Lymph # (Auto) [place] # (Auto) Eos # (Auto) Baso # (Auto) Abs Immat Gran (auto) Seg Neuts % (Manual) 70.0 Lymphocytes % (Manual) 15.0 L Monocytes % (Manual) 12.0 Eosinophils % (Manual) 3.0 Basophils % (Manual) 0.0 L Imm/Tot Granulo (auto) Neutrophils # (Manual) 8.54 H Lymphocytes # (Manual) 1.83 Monocytes # (Manual) 1.46 H Eosinophils # (Manual) 0.36 Basophils # (Manual) 0.00 VBG pH VBG pCO2 Sodium 131 L Potassium 4.5 Chloride 102 Carbon Dioxide 15.0 L Anion Gap 18.5 BUN 84.0 H* Creatinine 4.89 H Est GFR ( Amer) 15 L Est GFR (Non-Af Amer) 12 L BUN/Creatinine Ratio 17.2 Glucose 274 H Calcium 8.7 Magnesium 2.2 Total Bilirubin 0.2 AST 49 H ALT 54 Alkaline Phosphatase 74 C-Reactive Protein 24.31 H Total Protein 5.7 L Albumin 1.4 L Globulin 4.3 Albumin/Globulin Ratio 0.3 POC Glucose 271 H 293 H Preliminary micro results at discharge 10/23/24 23:05 Blood Culture Result 2 - Preliminary Blood - Left Wrist NO GROWTH AT 36-48 HOURS. FINAL TO FOLLOW. 10/23/24 22:30 Blood Culture Result 1 - Preliminary Blood - Left Antecubital NO GROWTH AT 36-48 HOURS. FINAL TO FOLLOW. Discharge Plan Discharge Discharge Medications: No Action montelukast 10 mg tablet 10 mg PO .QHS Renal Caps 1 mg capsule 1 cap PO QDAY rosuvastatin 20 mg tablet 20 mg PO .QHS One-A-Day Men's 50 Plus 400-370 mcg tablet 1 tab PO QDAY bupropion HCl 300 mg tablet extended release 24 hr 300 mg PO QDAY Kerendia 20 mg tablet 20 mg PO QDAY sodium bicarbonate 325 mg tablet 325 mg PO TID insulin aspart U-100 [Novolog FlexPen U-100 Insulin] 100 unit/mL (3 mL) Ins ulin Pen 3 - 15 unit subcut ACHS Qty: 15 0RF Rx Instructions: BG 141-200 = 3 UNITS 201-250 = 5 UNITS 251-300 = 8 UNITS 301-350 = 12 UNITS 351-400 = 15 UNITS BG GREATER THAN 400 = 15, CALL PHYSICIAN Levemir FlexPen 100 unit/mL (3 mL) Insulin Pen 30 unit subcut QHS 30 Days Qty: 9 0RF duloxetine 60 mg capsule,delayed release(DR/EC) 60 mg PO .QHS Jardiance 25 mg tablet 25 mg PO DAILY famotidine 20 mg tablet 20 mg PO .QHS torsemide 20 mg tablet 40 mg PO QAM ciprofloxacin HCl 500 mg tablet 500 mg PO Q24H doxycycline monohydrate 100 mg capsule 100 mg PO DAILY Print Language: Kiswahili
[2024-10-26 07:45] LABS: Glucometer 146 mg/dL (74-106)
--- NOTE | 2024-10-26 08:08 | CM.NOTE ---
Rounds made with Dr. Rodriguez, pt will go to OR today for surgical procedure. Further discharge planning per Dr. Zambrano.
--- NOTE | 2024-10-26 08:35 | P.DS_ITS ---
DS: Providers Provider Date of admission: 10/24/24 00:13 Primary care physician: GABRIEL JUAREZ DO Consults: 10/23/24 23:43 Consult to Podiatry Routine Consulting Provider: Imer Zambrano Reason for consultation: Necrotic right 2nd toe 10/24/24 07:03 Consult to Pharmacy Routine Consulting Provider: Reason for consultation: Please [place] me when Med Rec is Updated Has provider been notified: No Occupational Therapy Eval and Treat Routine Reason for consultation: Only if needed for Rehab Has provider been notified: No Physical Therapy Eval and Treat Routine Reason for consultation: Eval and Treat Has provider been notified: No DS: Diagnosis Discharge Diagnosis (1) Anemia in CKD (chronic kidney disease): (2) CKD (chronic kidney disease) stage 4, GFR 15-29 ml/min: (3) Type 2 diabetes mellitus with diabetic 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: (4) Infection of toe: (5) Diabetic ulcer of left foot: Qualifiers: Diabetes mellitus type: type 2 Diabetic foot ulcer location: midfoot Non-pressure ulcer stage: with muscle involvement without evidence of necrosis Qualified Code(s): E11.621 - Type 2 diabetes mellitus with foot ulcer; L97.425 - Non-pressure chronic ulcer of left heel and midfoot with muscle involvement without evidence of necrosis (6) Immunocompromised: (7) Ulcer of right second toe with necrosis of bone: (8) Acute osteomyelitis of right foot: Plan Admission findings: Sinus tachycardia, uncontrolled hypertension, leukocytosis secondary to right great toe infection and likely gangrene leading to sepsis Sepsis due to right great toe infection as a complication of his poorly controlled diabetes with immunodeficiency secondary to poorly controlled diabetes-surgery completed in the of discharge Diabetes mellitus-poorly controlled-insulin sliding scale-stable at discharge Acute kidney injury stage I on top of chronic kidney disease stage IV-baseline creatinine is 3.42 that was done a couple months ago, creatinine now over 5 which would put him over 150% above baseline with decreased urine output in the last 6 hours resulting in stage I acute kidney injury-deteriorated at discharge, modified a treatment plan as an outpatient, currently not seeing nephrology that may be recommended Chronic metabolic acidosis secondary to chronic kidney disease-improving at discharge Anemia of chronic kidney disease-monitor with daily-Down slightly today Hyponatremia on admission-almost normal at discharge Elevated liver function test likely secondary to the sepsis as outlined above- slightly elevated at discharge Depression-continue with home medications Edema-holding off on diuretics secondary to renal failure as outlined above Admission status: Patient admitted, inpatient secondary to necrosis of right great toe and likely need for surgical intervention after stabilized with IV antibiotics, medically necessary treatment will span 2 midnights. Inpatient status ? DS: Summary Hospital Course Hospital Course: Patient mid with sepsis secondary to right great toe gangrene, placed on antibiotics for 48 hours, surgical intervention today, his only other complicating course was his creatinine elevation, baseline is about 3-1/2 and he was up to 5 at discharge, can modify treatment plan as an outpatient. Assuming no change in plan after surgical intervention today he will be discharged to home in improving condition. Medications see list. Follow-up with PCP within the next week. Time Spent with Patient Time attestation: Total time spent providing and/or coordinating discharge services: Exam Constitutional Vital Signs, click to edit/add: Last Vital Signs Temp 97.7 F 10/26/24 07:45 Pulse 74 10/26/24 07:45 Resp 16 10/26/24 07:45 BP 118/69 10/26/24 07:45 Pulse Ox 94 L 10/26/24 07:45 O2 Del Method Room Air 10/26/24 07:45 Documenting provider has reviewed patient's vital signs: yes Common normals: no apparent distress Chest Common normals: inspection of chest normal Respiratory Common normals: normal respiratory effort Auscultation: no rhonchi and no wheezes Cardio Common normals: regular rate and regular rhythm; murmurs detected (2/6 systolic ejection murmur-chronic per patient) GI Common normals: soft to palpation and no hepatosplenomegaly; negative for Normal to inspection, nondistended, normoactive bowel sounds present (Morbid obesity) Extremity Common normals: abnormal to inspection (Dressing on bilateral feet, no erythema above the dressing) DS: Data Data Completed and Pending Labs on day of discharge: Labs from last 24 hours 10/26/24 10/26/24 10/25/24 07:35 05:37 20:47 WBC 12.5 H RBC 3.08 L Hgb 8.9 L Hct 26.8 L MCV 87.0 MCH 28.9 MCHC 33.2 RDW 13.2 Plt Count 235 MPV 8.8 L Neut % (Auto) 69.9 Lymph % (Auto) 14.0 L [place] % (Auto) 11.9 Eos % (Auto) 3.0 Baso % (Auto) 0.2 Neut # (Auto) 8.7 H Lymph # (Auto) 1.8 [place] # (Auto) 1.5 H Eos # (Auto) 0.4 Baso # (Auto) 0.0 Abs Immat Gran (auto) 0.12 H Imm/Tot Granulo (auto) 1.0 H VBG pH 7.296 L VBG pCO2 30.8 L Sodium 135 L Potassium 4.7 Chloride 104 Carbon Dioxide 16.9 L Anion Gap 18.8 BUN 91.0 H* Creatinine 5.12 H* Est GFR ( Amer) 14 L Est GFR (Non-Af Amer) 11 L BUN/Creatinine Ratio 17.8 Glucose 181 H Calcium 8.6 Magnesium 2.3 Total Bilirubin 0.2 AST 85 H ALT 86 H Alkaline Phosphatase 83 C-Reactive Protein 23.66 H Total Protein 5.9 L Albumin 1.4 L Globulin 4.5 Albumin/Globulin Ratio 0.3 POC Glucose 146 H 173 H 10/25/24 10/25/24 16:28 11:36 WBC RBC Hgb Hct MCV MCH MCHC RDW Plt Count MPV Neut % (Auto) Lymph % (Auto) [place] % (Auto) Eos % (Auto) Baso % (Auto) Neut # (Auto) Lymph # (Auto) [place] # (Auto) Eos # (Auto) Baso # (Auto) Abs Immat Gran (auto) Imm/Tot Granulo (auto) VBG pH VBG pCO2 Sodium Potassium Chloride Carbon Dioxide Anion Gap BUN Creatinine Est GFR ( Amer) Est GFR (Non-Af Amer) BUN/Creatinine Ratio Glucose Calcium Magnesium Total Bilirubin AST ALT Alkaline Phosphatase C-Reactive Protein Total Protein Albumin Globulin Albumin/Globulin Ratio POC Glucose 191 H 271 H Preliminary micro results at discharge 10/23/24 23:05 Blood Culture Result 2 - Preliminary Blood - Left Wrist NO GROWTH AT 36-48 HOURS. FINAL TO FOLLOW. 10/23/24 22:30 Blood Culture Result 1 - Preliminary Blood - Left Antecubital NO GROWTH AT 36-48 HOURS. FINAL TO FOLLOW. Discharge Plan Discharge Disposition: Home, Self-Care Discharge Medications: Continued montelukast 10 mg tablet 10 mg PO .QHS Renal Caps 1 mg capsule 1 cap PO QDAY rosuvastatin 20 mg tablet 20 mg PO .QHS One-A-Day Men's 50 Plus 400-370 mcg tablet 1 tab PO QDAY bupropion HCl 300 mg tablet extended release 24 hr 300 mg PO QDAY Kerendia 20 mg tablet 20 mg PO QDAY sodium bicarbonate 325 mg tablet 325 mg PO TID insulin aspart U-100 [Novolog FlexPen U-100 Insulin] 100 unit/mL (3 mL) Insulin Pen 3 - 15 unit subcut ACHS Qty: 15 0RF Rx Instructions: BG 141-200 = 3 UNITS 201-250 = 5 UNITS 251-300 = 8 UNITS 301-350 = 12 UNITS 351-400 = 15 UNITS BG GREATER THAN 400 = 15, CALL PHYSICIAN Levemir FlexPen 100 unit/mL (3 mL) Insulin Pen 30 unit subcut QHS 30 Days Qty: 9 0RF duloxetine 60 mg capsule,delayed release(DR/EC) 60 mg PO .QHS Jardiance 25 mg tablet 25 mg PO DAILY famotidine 20 mg tablet 20 mg PO .QHS ciprofloxacin HCl 500 mg tablet 500 mg PO Q24H doxycycline monohydrate 100 mg capsule 100 mg PO DAILY Discontinued torsemide 20 mg tablet 40 mg PO QAM Print Language: New Zealander Forms: Portal Instructions
[2024-10-26] MEDS: LINEZOLID IN DEXTROSE 5% 600 MG/300 ML PIGGYBACK 300 MG IV (08:51)
[2024-10-26] MEDS: CARVEDILOL 6.25 MG TABLET PO (08:51)
[2024-10-26 09:55] LABS: Glucometer 146 mg/dL (74-106)
[2024-10-26] MEDS: LACTATED RINGER'S SOLUTION 1,000 ML 50 ML IV (10:15)
--- NOTE | 2024-10-26 11:07 | P.ORON_ITS ---
Brief Operative Note Date of procedure: 10/26/24 Pre-op diagnosis general: Right second toe ulceration with bone necrosis, acute osteomyelitis, type 2 diabetes with foot ulcer and peripheral neuropathy Post-op diagnosis: same as pre-op Procedure: Procedure performed: Right transmetatarsal amputation, local anesthetic nerve block of ankle, application of short leg splint. Indications for procedure: Please see consultation and progress notes for details but in short patient has severe diabetic foot infection associated with his second toe as well as history of partial hallux and partial fifth ray amputations. His second toe is nonviable and source of serious life-threatening infection. I discussed the potential risks and benefits of second toe amputation versus transmetatarsal amputation and my concern is that the remaining toes would be at substantial higher risk in which case he would require additional surgical intervention. 2 prevent unnecessary future surgeries as well as allow better gait function transmetatarsal amputation was recommended and patient agreed. Patient has remained hemodynamically stable however still has leukocytosis and acute kidney injury in setting of stage IV chronic kidney disease. Blood cultures have been negative after 48 hrs. Intraoperative findings: Right second toe is necrotic to the level of the MPJ. Bone quality of metatarsals 1 through 4 was within normal limits. No purulence. Blood flow was sluggish to return but ultimately capillary refill to the amputation stump did have normal capillary refill prior to applying postoperative dressing Procedure in detail: Patient was identified in preop holding by myself which time correct side site were marked and consent was obtained. Patient was brought back to the operating theater placed on table in supine position with a calf tourniquet. No additional antibiotics were given as patient is receiving broad-spectrum antibiotics on the floor. Right lower extremity was prepped and draped in usual sterile fashion and formal timeout was performed. Local anesthesia using 10 cc of 1% lidocaine plain and 10 cc 0.5% Marcaine plain were used to block the forefoot. The right limb was then elevated for several minutes then the tourniquet was inflated. A fishmouth incision was placed over the metatarsal necks dorsally and MPJs plantarly. Combination of sharp and blunt dissection gained access to metatarsals 1 through 4 with all bleeders being coagulated. Then a sagittal saw was used to perform dorsal to plantar beveled osteotomies of each metatarsal in succession. Then sharp dissection along the plantar surface of each metatarsal was performed to allow the remaining toes and distal metatarsals to be amputated. Forefoot amputation was passed the back table to be sent as specimen. All tendons were cut proximally and the surgical site was irrigated with copious saline. No evidence of deep space infection or purulence noted in the preserved tissues. The tourniquet was deflated and blood flow returned although sluggishly. Bleeders were cauterized or tied off and hemostasis was controlled on the field. The site was irrigated with copious saline then using clean instrumentation a proximal/clean specimen of the second metatarsal was obtained with a rongeur and sent to microbiology. The amputation stump was then closed in a single layer using skin suture. Xeroform was placed over the incision followed by a dry sterile dressing consisting of 4 x 4's and Kerlix. A multilayer modified Restrepo posterior splint was then applied. Patient tolerated the procedure and anesthesia well. Postoperative plan: After postoperative monitoring in the PACU patient will be transported back to medical surgical unit for continued medical management Discharge home per Dr. Rodriguez on 2 weeks of oral suppressive antibiotics Partial protected weightbearing to right heel in splint versus total contact cast until incision has healed Follow-up in the wound center within 1 week from discharge Implants: none Anesthesia: MAC and local Surgeon: Imer Zambrano Chief Financial Officer: Shanthi Chase Estimated blood loss (mL): 25 Tourniquet time (min): 14 Pathology: other (forefoot amputation and proximal/clean bone culture from 2nd metatarsal) Condition: stable Disposition: PACU
[2024-10-26] MEDS: BUPIVACAINE HCL 0.5% PF 50 MG/10 ML VIAL INJ (11:48)
[2024-10-26] MEDS: LIDOCAINE HCL 1% 100 MG/10 ML MDV INJ (11:48)
[2024-10-26 12:26] LABS: Glucometer 129 mg/dL (74-106)
--- NOTE | 2024-10-26 12:34 | XR_ITS ---
The [address] [address] Patient Name: RASHARD TAN MRN: [id number] date: 1960 Sex: M Assigned Patient Location: [place] Current Patient Location: [place] Accession/Order Number: [id number] Exam Date: 10/26/2024 12:58 Report Date: 10/26/2024 13:00 At the request of: CHINO ELLIOTT DPJuma Procedure: XR foot RT min 3V RIGHT FOOT - 3 views CLINICAL HISTORY: ulcer R 2nd toe w bone involvment COMPARISON: Right foot 10/23/2024 FINDINGS: Patient is status post mid metatarsal amputation when compared to the prior study. Majority of the fifth digit has been removed. Splint is in place. Diffuse soft tissue swelling is present. Degenerative changes involving the hindfoot and midfoot. Plantar spurring. No acute bony process. XR/XR foot RT min 3V IMPRESSION: PATIENT IS STATUS POST MID METATARSAL AMPUTATION WITH SOFT TISSUE SWELLING. NO ACUTE BONY PROCESS IS SEEN. Impression dictated by: Clayton Cuevas Jr. DVaishaliOVaishali 10/26/2024 1:00 PM Dictation Location: [place] [address] Electronically authenticated by: [id number] Y Date: 10/26/2024 13:00
--- NOTE | 2024-10-26 13:06 | PT.DAILY ---
Physical Therapy Daily Note PT Daily Note/Assess Start: 10/24/24 10:32 Freq: Status: Active Protocol: Document 10/26/24 13:06 ROJELIO (Rec: 10/26/24 13:06 ROJELIO [id number]) Visit Not Completed Visit Not Completed Visit Not Completed Pt out of room,Other Due to: Other Reason Visit Out of room. In surgery. Will follow up tomorrow. Not Completed Physical Therapy Daily Note/Assessment Time In/Time Out Time In 11:35 Time Out 11:35 GG. Functional Abilities and Goals-Complete for Swing Bed Patients Only [id number]. Self-Care [id number]. Mobility
[2024-10-26] MEDS: B COMPLEX/FOLIC ACID SOFTGEL CAPSULE 1 CAP PO (13:13)
[2024-10-26] MEDS: MULTIVITAMIN TABLET 1 TAB PO (13:14)
[2024-10-26] MEDS: JUVEN PACKET 1 PACKET PO (13:14)
[2024-10-26] MEDS: ONDANSETRON PF 4 MG/2 ML VIAL IV (13:18)
[2024-10-26] MEDS: PIPERACILLIN SODIUM/TAZOBACTAM 3.375 GM in 0.9 % SODIUM CHLORIDE 50 ML IV (13:18)
--- NOTE | 2024-10-26 14:24 | W.PM.WC ---
Wound Consult Note Assessment and Plan (1) Anemia in CKD (chronic kidney disease): (2) CKD (chronic kidney disease) stage 4, GFR 15-29 ml/min: (3) Type 2 diabetes mellitus with diabetic 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: (4) Infection of toe: (5) Diabetic ulcer of left foot: 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 involvement without evidence of necrosis (6) Immunocompromised: (7) Ulcer of right second toe with necrosis of bone: Reason for Consult: apply Total Contact Cast post op Assessment and Plan: Verbal order from Dr. Zambrano to place patient in a total contact cast when patient returns to the med/surg floor after right TMA today. Patient resting comfortably in bed, states having some nausea as well as some post op pain to right foot. Removed ALESSANDRA splint down to bottom layer to cast padding. Patient and request this layer of cast padding stay in place to pad foot better. No strikethrough noted from post op incision. TCC placed per guidelines. Patient tolerated well and foot placed in a neutral position to accommodate TCC boot. Patient's Saturday appointment canceled and new appointment for was provided to front end developer designer staff for discharge paperwork. (8) Acute osteomyelitis of right foot: Plan Patient will follow up on October 29 at 2:30PM in the wound care center. Patient is to call office if any questions, concerns prior to appointment. Rohit Weinstein RN, CWON
--- NOTE | 2024-10-26 14:26 | SWNOTE1 ---
SW and I stopped in pt's room, pt's was at bedside. SW asked pt if he has home health coming in currently. Pt voiced he has not had home health since January 2024. SW asked pt and if they thought home health would be helpful, pt voiced yes. Pt had [facility] in the past. SW asked pt if he used any medical equipment at home, pt voiced he has all the equipment at home. SW did tell pt SW can send information to [facility] and they will evaluate pt needs in the home. Pt has no further d/c needs at this time.
--- NOTE | 2024-10-26 14:40 | SWNOTE1 ---
Faxed referral to [facility].
--- NOTE | 2024-10-27 08:14 | PC.NURSE ---
Follow up appt. with Dr. Baron 11/03 @ 3:15pm [phone]
--- NOTE | 2024-10-27 08:16 | SWNOTE1 ---
SW received message after leaving yesterday and [facility] is not able to accept due to history of non compliance. SW called and left message for pt/pt's , waiting for call back.
--- NOTE | 2024-10-27 13:53 | SWNOTE1 ---
SW called and left another message for pt/pt's in regards to HH. Waiting for call back.
--- NOTE | 2024-10-28 08:42 | SWNOTE1 ---
KATERIN called and spoke to pt's . She would like KATERIN to try another [facility] company. Pt does not have any wound care at this time, but feels just a nurse to come check on him would be beneficial. KATERIN also asked if she would like KATERIN to call and schedule a follow up with PCP Dr.. Baron, she voiced yes, SW to call.
--- NOTE | 2024-10-28 12:07 | SWNOTE1 ---
KATERIN called pt's in regards to [facility] not accepting. She voiced she is alright with SW finding any HH company to come in. SW to send referral to [facility] . SW also spoke to pt's to see if she has scheudled an apt with his PCP for a follow up. SHe voiced no but she can call. SW offered to call and get apt scheduled, is fine with this. KATERIN called Dr. Strickland office and left message. KATERIN spoek to Carly at Dr. Strickland office and pt has an apt on 11/03/24 at 3:15. SW to let know. KATERIN called [facility] and they received referral.
--- NOTE | 2024-10-28 12:49 | SWNOTE1 ---
KATERIN spoke with TJ at [address] and they are able to accept. Requested CRF be sent over. KATERIN re faxed CRF. KATERIN also spoke with Dr. Strickland office and pt's follow up scheduled for 11/03/24 at 3:15. KATERIN called pt's (only number listed) and had to leave message in regards to HH and PCP apt.
--- NOTE | 2024-10-28 14:39 | CM.DCFOLLOWU ---
Person spoke with: Alexander How are you feeling? Much better How is your pain? No pain Did you understand your discharge instructions? Yes Do you have any questions about your discharge instructions? No Were you given any prescriptions at discharge? N/A Were you able to get your prescriptions filled? N/A Do you understand how to take your medications as ordered? Yes Do you have any questions about your follow up appointment and do you plan to keep your follow up appointment? I see wound clinic tomorrow and New had already called pt will f/u appt to see Dr. Baron Is there anything else that you would like to discuss? No Questions/Comments/Concerns/Other:
== END 2024-10-26 15:34 | disposition home health service (06) | DRG 854 ==
LOC: ER 23:43 → MS 10-24 00:20
PROVIDERS: Podiatrist Foot & Ankle Surgery; Registered Nurse; Admitting Provider Family Medicine; Emergency Provider Emergency Medicine; PCP Internal Medicine; Visit Provider Family Medicine
PROC: 0Y6M0Z9 Detachment at Right Foot, Partial 1st Ray, Open Approach (ICD-10-PCS; principal; 2024-10-26 10:00)
DX: A41.9 Sepsis, unspecified organism (principal); D84.9 Immunodeficiency, unspecified; M86.171 Other acute osteomyelitis, right ankle and foot; L97.425 Non-pressure chronic ulcer of left heel and midfoot with muscle involvement without evidence of necrosis; N18.4 Chronic kidney disease, stage 4 (severe); N17.9 Acute kidney failure, unspecified; E87.1 Hypo-osmolality and hyponatremia; E87.22 Chronic metabolic acidosis; E11.621 Type 2 diabetes mellitus with foot ulcer; L97.513 Non-pressure chronic ulcer of other part of right foot with necrosis of muscle; Z79.4 Long term (current) use of insulin; Z79.84 Long term (current) use of oral hypoglycemic drugs; E11.22 Type 2 diabetes mellitus with diabetic chronic kidney disease; D63.1 Anemia in chronic kidney disease; I12.9 Hypertensive chronic kidney disease with stage 1 through stage 4 chronic kidney disease, or unspecified chronic kidney disease; R79.89 Other specified abnormal findings of blood chemistry; F32.A Depression, unspecified; R60.9 Edema, unspecified; L40.9 Psoriasis, unspecified; E78.5 Hyperlipidemia, unspecified; Z90.49 Acquired absence of other specified parts of digestive tract; Z89.422 Acquired absence of other left toe(s); F17.200 Nicotine dependence, unspecified, uncomplicated; E11.69 Type 2 diabetes mellitus with other specified complication; E66.01 Morbid (severe) obesity due to excess calories; E11.65 Type 2 diabetes mellitus with hyperglycemia; E11.42 Type 2 diabetes mellitus with diabetic 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; Z68.32 Body mass index [BMI] 32.0-32.9, adult
CPT/HCPCS: 36415; 73630; 80053; 82800; 82948; 83605; 83735; 85007; 85025; 85027; 85652; 86140; 87040; 87070; 87075; 87102; 87116; 87176; 87205; 87206; 94761; 96365; 96367; 97161; 97165; 99285; 99999; J0665; J1644; J2020; J2250; J2371; J2405; J2543; J2704; J3010; J3370

== ENCOUNTER 2024-10-29 14:29 | Outpatient (OUT) | payer BC, SELFPAY ==
--- OUTSIDE RECORDS SUMMARY | 2024-10-29 14:31 | XMS_ITS | Encounter Summary ---
Author Organization [facility] Address [address] [place] [address] Care Team Providers Care Lithographer Helper Name Role Phone Jose Baron MD Primary Care Provider [phone] Encounter Details Date Type Department Care Team (Late st Contact Info) Description 11/19/2023 Clinisync Result Encounter [facility] Department Unsolicited Ajay Archer MD [address] [place] [id number] Social History Tobacco Use Types Packs/Day Years [...] EDT Narrative 11/19/2023 5:27 PM EDT The [address] [address] Ultrasound Report Signed Patient: RASHARD LYMAN MR#: [id number] : 1960 Acct:[id number] Age/Sex: 63 / M ADM Date: 11/19/23 Loc: US Attending Dr: Ajay Archer M.D. Ordering Physician: Ajay Archer M.D. Date of Service: 11/19/23 Procedure(s): US venous doppler LE LT Accession Number(s): [id number] cc: Imer Zambrano D.P.M.; Ajay Archer M.D. [address] [address] Patient Name: RASHARD LYMAN MRN: [id number] date: 1960 Sex: M Assigned Patient Location: US Current Patient Location: [place] Accession/Order Number: [id number] Exam Date: 11/19/2023 16:06 Report Date: 11/19/2023 [...] M.D. Signed By: 11/19/231726 DD/ 23 TD/TT: Molding Utility Worker: Procedure Note Radiology, Radiologist, MD - 11/19/[address] [address] Ultrasound Report Signed Patient: RASHARD LYMANMR#: [id number] : 1960Acct:[id number] Age/Sex: 63 / MADM Date: 11/19/23 Loc: US Attending Dr: Ajay Archer M.D. Ordering Physician: Ajay Archer M.D. Date of Service: 11/19/23 Procedure(s): US venous doppler LE LT Accession Number(s): [id number] cc: Imer Zambrano D.P.M.; Ajay Archer M.D. [place] [id number] Patient Name: RASHARD LYMAN MRN: [id number] date: 1960 Sex: M Assigned Patient Location: US Current Patient Location: US Accession/Order Number: [id number] Exam Date: 11/19/2023 16:06 Report Date: 11/19/2023 [...] Venegas M.D. Signed By:11/19/231726 DD/ 23 TD/TT: Molding Utility Worker: Ajay Archer MD [facility] Final Result documented in this encounter Visit Diagnoses Not on filedocumented in this encounter Care Teams Lithographer Helper Relationship Specialty Start Date End Date Jose Baron MD [facility] [place] [id number] PCP - General Internal Medicine 09/07/24 documented as of this encounter
--- OUTSIDE RECORDS SUMMARY | 2024-10-29 14:31 | XMS_ITS | Patient Health Record ---
Author Organization The [facility] [place] Address [address] [place] [address] Care Team Providers Care Consignee Name Role Phone William SIGALA, [place] Primary Care Provider Obi Contreras [phone] Results Component Value Reference Range Notes CBC AUTO DIFF Reviewed date:10/26/2024 09:11:22 PM Interpretation: Performing Lab: Notes/Report: [facility] , White Blood Count 11.3 4.0-11.0 10 [...] 3/uL Performing Lab: see note ML - [facility] LB Erythrocyte Sedimentation Ra te Reviewed date:10/26/2024 09:11:22 PM Interpretation: Performing Lab: Notes/Report: [facility] , Erythrocyte Sedimentation Rate >130 <=20 mm/hr Performing Lab: see note ML - [facility] LB MAGNESIUM Reviewed date:10/25/2024 01:27:08 PM Interpretation: Performing Lab: Notes/Report: [facility] , Magnesium 2.4 1.8-2.4 mg/dL Performing Lab: see note - [facility] LB Venous Blood Gas Reviewed date:10/25/2024 01:27:08 PM Interpretation: Performing Lab: Notes/Report: [facility] , pH VBG 7.250 7.330-7.430 PCO2 VBG 31.6 40.0-52.0 mmHg Performing Lab: see note ML - [facility] LB CBC AUTO DIFF Reviewed date:10/25/2024 01:27:08 PM Interpretation: Performing Lab: Notes/Report: [facility] , White Blood Count 12.2 4.0-11.0 10 3/uL Red Blood Count 3.55 4.70-6.10 10 6/uL Hemoglobin 10.2 14.0-18.0 g/dL Hematocrit 31.1 42.0-54.0 % Mean Corpuscular Volume 87.6 80.0-94.0 fL Mean Corpuscular Hemoglobin 28.7 25.9-34.0 pg Mean Corpuscular HGB Conc 32.8 29.9-35.2 g/dL Red Cell Distribution Width 13.0 11.0-15.0 % Platelet Count 229 150-450 10 3/uL Mean Platelet Volume 9.1 9.5-13.5 fL Performing Lab: see note ML - [facility] LB CRP Reviewed date:10/25/2024 01:27:08 PM Interpretation: Performing Lab: Notes/Report: [facility] , C Reactive Protein 24.31 <=0.50 mg/dL Performing Lab: see note ML - [facility] LB MAGNESIUM Reviewed date:10/25/2024 01:27:08 PM Interpretation: Performing Lab: Notes/Report: [facility] , Magnesium 2.2 1.8-2.4 mg/dL Performing Lab: see note ML - [facility] LB PROF 14(COMP METB) Reviewed date:10/25/2024 01:27:08 PM Interpretation: Performing Lab: Notes/Report: [facility] , Sodium 131 136-145 mmol/L Potassium 4.5 3.5-5.1 mmol/L Chloride 102 98-107 mmol/L Carbon Dioxide 15.0 21.0-32.0 mmol/L Anion Gap 18.5 Glucose 274 74-106 mg/dL Blood Urea Nitrogen 84.0 7.0-18.0 mg/dL RESULTS CALLED TO Ines Mann RN @BY Andre Swan MLT at 0647 Creatinine 4.89 0.70-1.30 mg/dL Estimated GFR ( Camilla 15 >=60 mL/min/1.73m 2 Estimated GFR (Non- Em 12 >=60 mL/min/1.73m 2 BUN Creatinine Ratio 17.2 Calcium 8.7 8.5-10.1 mg/dL Bilirubin Total 0.2 0.2-1.0 mg/dL Aspartate Amino Transferase 49 15-37 U/L Alanine Aminotransferase 54 16-63 U/L Alkaline Phosphatase 74 46-116 U/L Total Protein 5.7 6.4-8.2 g/dL Albumin Level 1.4 3.4-5.0 g/dL Globulin 4.3 Albumin Globulin Ratio 0.3 Performing Lab: see note ML - [facility] LB Manual Differential Reviewed date:10/25/2024 01:27:08 PM Interpretation: Performing Lab: Notes/Report: [facility] , Segmented Neutrophils % Manual 70.0 43.0-75.0 Lymphocytes Percent Manual 15.0 20.5-60.0 % Monocytes Percent Manual 12.0 1.7-12.0 % Eosinophils Percent Manual 3.0 0.9-7.0 % Basophils Percent Manual 0.0 0.2-2.0 % Segmented Neut Absolute Manual 8.54 1.4-6.5 10 3/uL Lymphocytes Absolute Manual 1.83 1.20-3.80 10 3/uL Monocytes Absolute Manual 1.46 0.30-0.80 10 3/ uL Eosinophils Absolute Manual 0.36 0.00-0.70 10 3/uL Basophils Abs Manual 0.00 0.00-0.10 10 3/uL Performing Lab: see note ML - [facility] LB CBC AUTO DIFF Reviewed date:10/26/2024 09:11:22 PM Interpretation: Performing Lab: Notes/Report: [facility] , White Blood Count 12.5 4.0-11.0 10 3/uL Red Blood Count 3.08 4.70-6.10 10 6/uL Hemoglobin 8.9 14.0-18.0 g/dL Hematocrit 26.8 42.0-54.0 % Mean Corpuscular Volume 87.0 80.0-94.0 fL Mean Corpuscular Hemoglobin 28.9 25.9-34.0 pg Mean Corpuscular HGB Conc 33.2 29.9-35.2 g/dL Red Cell Distribution Width 13.2 11.0-15.0 % Platelet Count 235 150-450 10 3/uL Mean Platelet Volume 8.8 9.5-13.5 fL Neutrophils Percent Auto 69.9 43.0-75.0 % Lymphocytes Percent Auto 14.0 20.5-60.0 % Monocytes Percent Auto 11.9 1.7-12.0 % Eosinophils Percent Auto 3.0 0.9-7.0 % Basophils Percent Auto 0.2 0.2-2.0 % Immature Granulocytes Pct Auto 1.0 0.0-0.5 % Neutrophils Absolute Auto 8.7 1.4-6.5 10 3/uL Lymphocytes Absolute Auto 1.8 1.2-3.8 10 3/uL Monocytes Absolute Auto 1.5 0.3-0.8 10 3/uL Eosinophils Absolute Auto 0.4 0.0-0.7 10 3/uL Basophils Absolute Auto 0.0 0.0-0.1 10 3/uL Immature Granulocytes Abs Auto 0.12 0.00-0.03 10 3/uL Performing Lab: see note ML - [facility] LB CRP Reviewed date:10/26/2024 09:11:22 PM Interpretation: Performing Lab: Notes/Report: [facility] , C Reactive Protein 23.66 <=0.50 mg/dL Performing Lab: see note ML - [facility] LB MAGNESIUM Reviewed date:10/26/2024 09:11:22 PM Interpretation: Performing Lab: Notes/Report: [facility] , Magnesium 2.3 1.8-2.4 mg/dL Performing Lab: see note ML - [facility] LB PROF 14(COMP METB) Reviewed date:10/26/2024 09:11:22 PM Interpretation: Performing Lab: Notes/Report: [facility] , Sodium 135 136-145 mmol/L Potassium 4.7 3.5-5.1 mmol/L Chloride 104 98-107 mmol/L Carbon Dioxide 16.9 21.0-32.0 mmol/L Anion Gap 18.8 Glucose 181 74-106 mg/dL Blood Urea Nitrogen 91.0 7.0-18.0 mg/dL RESULT S CALLED TO JESUS ALBERTO MANN RN at 0620 Creatinine 5.12 0.70-1.30 mg/dL RESULTS CALL ED TO JESUS ALBERTO MANN RN at 0620 Estimated GFR ( Camilla 14 >=60 mL/min/1.73m 2 Estimated GFR (Non- Em 11 >=60 mL/min/1.73m 2 BUN Creatinine Ratio 17.8 Calcium 8.6 8.5-10.1 mg/dL Bilirubin Total 0.2 0.2-1.0 mg/dL Aspartate Amino Transferase 85 15-37 U/L Alanine Aminotransferase 86 16-63 U/L Alkaline Phosphatase 83 46-116 U/L Total Protein 5.9 6.4-8.2 g/dL Albumin Level 1.4 3.4-5.0 g/dL Globulin 4.5 Albumin Globulin Ratio 0.3 Performing Lab: see note ML - [facility] LB Venous Blood Gas Reviewed date:10/26/2024 09:11:22 PM Interpretation: Performing Lab: Notes/Report: [facility] , pH VBG 7.296 7.330-7.430 PCO2 VBG 30.8 40.0-52.0 mmHg Performing Lab: see note ML - [facility] LB XR foot RT min 3V Reviewed date:10/26/2024 09:11:22 PM Interpretation: Performing Lab: Notes/Report: Source Facility: [place] [address] [place] [address] XRay Report Signed Patient: RASHARD LYMAN MR#: [id number] : 1960 Acct:[id number] Age/Sex: 64 / M ADM Date: 08/26/24 Loc: [place] 229-[address]: Ajay Vizcaino M.D. Ordering Physician: Chino Zambrano D.P.M. Date of Service: 08/28/24 Procedure(s): XR foot RT min 3V Accession Number(s): [id number] cc: Chino Zambrano D.P.M.; GABRIEL JUAREZ D.O. [place] [address] Patient Name: RASHARD LYMAN MRN: [id number] date: 1960 Sex: M Assigned Patient Location: [place] Current Patient Location: [place] Accession/Order Number: [id number] Exam Date: 08/28/2024 11:46 Report Date: 08/28/2024 [...] Jr., D.O. 08/28/2024 11:47 AM Dictation Location: [place] [address] Electronically authenticated by: [id number] Y Date: 08/28/2024 11:47 Dictated By: Clayton Cuevas M.D. Signed By: 08/28/24 1150 DD/ 1147 TD/TT: Wet Cleaner Machine: [place] [address] XRay Report Signed Patient: MOIRA LYMAN MR#: [id number] : 1960 Acct:[id number] Age/Sex: 64 / M ADM Date: 08/26/24 Loc: [place] 229-[address]: Ajay Vizcaino M.D. Ordering Physician: Chino Zambrano D.P.M. Date of Service: 08/28/24 Procedure(s): XR jeanette t RT min 3V Accession Number(s): [id number] cc: Chino Zambrano D.P.M.; GABRIEL JUAREZ D.O. [place] [address] Patient Name: RASHARD LYMAN MRN: [id number] date: 1960 Sex: M Assigned Patient Location: [place] Current Patient Location: [place] Accession/Order Numb er: [id number] Exam Date: 08/28/2024 11:46 Report Date: 08/28/2024 [...] PROCESS. Impression dictated by: Clayton Cuevas Jr. DVaishaliOVaishali 08/28/2024 11:47 AM Dictation Location: [place] [address] Electronically authenticated by: [id number] Y Date: 08/28/2024 11:47 Dictated By: Clayton Cuevas M.D. Signed By: 08/28/24 1150 DD/ 1147 TD/TT: Wet Cleaner Machine: Tissue Culture Reviewed date:10/26/2024 09:11:22 PM Interpretation: Performing Lab: Notes/Report: [facility] , Tissue Culture See Below For Report Tissue Culture Please refer to the following specimen for additional lab results. Tissue Culture SEE: [id number] Tissue Culture Please refer to the following specimen for additional lab results. Performing Lab: see note SEE REPORT - Medical Review Coordinator Id information not found for OBX-specific multimedia producer legend LC - [facility] LB Tissue Culture Reviewed date:10/26/2024 09:11:22 PM Interpretation: Performing Lab: Notes/Report: [facility] , Tissue [...] Lab: see note LC - [facility] LB Gram Stain Result Reviewed date:10/26/2024 09:11:22 PM Interpretation: Performing Lab: Notes/Report: [facility] , Gram Stain Result See Below For Report Gram Stain Result WILL FOLLOW Gram Stain Result Rare white blood cells. Gram Stain Result WILL FOLLOW Gram Stain Result Gram Stain Result WILL FOLLOW Gram Stain Result No organisms seen Gram Stain Result WILL FOLLOW Gram Stain Result Performed at: [facility] Gram Stain Result WILL FOLLOW Gram Stain Result [address] [place], [place] [id number] Gram Stain Result WILL FOLLOW Gram Stain Result Arch Support Maker: Phyllis Brian PhD, Phone: [phone] Gram Stain Result WILL FOLLOW Performing Lab: see note SEE REPORT - Medical Review Coordinator Id information not found for OBX-specific multimedia producer legend [facility] Fungus (Mycology) Culture Reviewed date:10/26/2024 09:11:22 PM Interpretation: Performing Lab: Notes/Report: Comment right [facility] , Fungus (Mycology) Culture See Below For Report Fungus (Mycology) Culture Please refer to the following specimen for additional lab results. Fungus (Mycology) Culture SEE: [phone] Fungus (Mycology) Culture Please refer to the following specimen for additional lab results. Performing Lab: see note SEE REPORT - Medical Review Coordinator Id information not found for OBX-specific multimedia producer legend [facility] LB Fungus Stain Reviewed date:10/26/2024 09:11:22 PM Interpretation: Performing Lab: Notes/Report: Comment right [facility] , Fungus Stain See Below For Report Fungus Stain Fungus Stain Please refer to the following specimen for additional lab results. Fungus Stain Fungus Stain SEE: [phone] Fungus S tain Performing Lab: see note SEE REPORT - Medical Review Coordinator Id information not found for OBX-specific multimedia producer legend [facility] LB Acid Fast Culture Reviewed date:10/26/2024 09:11:22 PM Interpretation: Performing Lab: Notes/Report: Comment right [facility] , Acid Fast Culture See Below For Report Specimen has been received and testing has been initiated. Acid Fast Culture Acid Fast Culture Performed at: [facility] Specimen has been received and testing has been initiated. Acid Fast Culture Acid Fast Culture [address], [place] [id number] Specimen has been received and testing has been initiated. Acid Fast Culture Acid Fast Culture Arch Support Maker: Phyllis Brian PhD, Phone: [phone] Specimen has been received and testing has been initiated. Acid Fast Culture Performing Lab: see note SEE REPORT - Medical Review Coordinator Id information not found for OBX-specific multimedia producer legend [facility] LB Acid Fast Smear Reviewed date:10/26/2024 09:11:22 PM Interpretation: Performing Lab: Notes/Report: Comment right hallux [facility] , Acid Fast Smear See Below For Report Acid Fast Smear Negative Performing Lab: see note LC - [facility] LB AFB Specimen Processing Reviewed date:10/26/2024 09:11:22 PM Interpretation: Performing Lab: Notes/Report: Comment right hallux [facility] , AFB Specimen Processing See Below For Report AFB Specimen Processing AFB Specimen Processing Tissue Grinding AFB Specimen Processing Performing Lab: see note LC - [facility] LB MR ankle LT wo con Reviewed date:10/26/2024 09:11:22 PM Interpretation: Performing Lab: Notes/Report: Source Facility: [place] [address] [place] [address] Magnetic Resonance Report Signed Patient: RASHARD LYMAN MR#: [id number] : 1960 Acct:[id number] Age/Sex: 63 / M ADM Date: 01/30/24 Loc: MRI Attending Dr: Chino Zambrano D.P.M. Ordering Physician: Chino Zambrano D.P.M. Date of Service: 01/30/24 Procedure(s): MR ankle LT wo con Accession Number(s): [id number] cc: Chino Zambrano D.P.M.; GABRIEL JUAREZ D.O. [place] [address] Patient Name: RASHARD LYMAN MRN: [id number] date: 1960 Sex: M Assigned Patient Location: MRI Current Patient Location: MRI Accession/Order Number: [id number] Exam Date: 01/30/2024 13:30 Report Date: 01/31/2024 [...] the proximal metatarsals. Electronically authenticated by: VALERIANO DUVAL Date: 01/31/2024 17:09 Dictated By: Valeriano Duval M.D. Signed By: 01/31/241710 DD/ 08 TD/TT: Wet Cleaner Machine: [place] [address] Magnetic Resonance Report Signed Patient: MOIRA LYMAN MR#: [id number] : 1960 Acct:[id number] Age/Sex: 63 / M ADM Date: 01/30/24 Loc: MRI Attending Dr: Chino Zambrano D.P.M. Ordering Physician: Chino Zambrano D.P.M. Date of Service: 01/30/24 Procedure(s): ank le LT wo con Accession Number(s): [id number] cc: Chino Zambrano D.P.M.; GABRIEL JUAREZ D.O. [place] [address] Patient Name: RASHARD LYMAN MRN: [id number] date: 1960 Sex: M Assigned Patient Location: MRI Current Patient Location: MRI Accession/Order Numb er: [id number] Exam Date: 13:30 Report Date: 01/31/2024 17:09 At the request of: CHINO ZAMBRANO Procedure: MR ankle LT wo con EXAM: MR ankle LT wo con. 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 COMPARISON: 01/21/2024 TECHNIQUE: MRI image [...] the proximal metatarsals. Electronically authenticated by: VALERIANO DUVAL Date: 01/31/2024 17:09 Dictated By: Lorene Duval M.D. Signed By: 01/31/241710 DD/ 08 TD/TT: Wet Cleaner Machine: PROF RICHIE Ross ([facility]) Reviewed date:10/26/2024 09:11:22 PM Interpretation: Performing Lab: Notes/Report: [facility] , Sodium 130 136-145 mmol/L Potassium 4.4 [...] 8.5-10.1 mg/dL Performing Lab: see note - [facility] LB CRP Reviewed date:10/26/2024 09:11:22 PM Interpretation: Performing Lab: Notes/Report: [facility] , C Reactive Protein 1.75 <=0.50 mg/dL Performing Lab: see note ML - [facility] LB XR ankle LT min 3V Reviewed date:10/26/2024 09:11:22 PM Interpretation: Performing Lab: Notes/Report: Source Facility: [place] [address] [place] [address] XRay Report Signed Patient: RASHARD LYMAN MR#: [id number] : 1960 Acct:[id number] Age/Sex: 63 / M ADM Date: 01/21/24 Loc: Attending Dr: Chino Zambrano D.P.M. Ordering Physician: Chino Zambrano D.P.M. Date of Service: 01/21/24 Procedure(s): XR ankle LT min 3V Accession Number(s): [id number] cc: Chino Zambrano D.P.M.; GABRIEL JUAREZ D.O. [place] [address] Patient Name: RASHARD LYMAN MRN: [id number] date: 1960 Sex: M Assigned Patient Location: Current Patient Location: Accession/Order Number: [id number] Exam Date: 01/21/2024 13:21 Report Date: 01/23/2024 [...] M.D. Signed By: 01/23/2448 DD/ 4 TD/TT: Wet Cleaner Machine: [place] [address] XRay Report Signed Patient: MOIRA LYMAN MR#: [id number] : 1960 Acct:[id number] Age/Sex: 63 / M ADM Date: 01/21/24 Loc: Attending Dr: Chino Zambrano D.P.M. Ordering Physician: Chino Zambrano D.P.M. Date of Service: 01/21/24 Procedure(s): XR ank le LT min 3V Accession Number(s): [id number] cc: Chino Zambrano D.P.M.; GABRIEL JUAREZ D.O. [place] [address] Patient Name: RASHARD LYMAN MRN: [id number] date: 1960 Sex: M Assigned Patient Location: Current Patient Location: Accession/Order Numb er: [id number] Exam Date: 01/21/2024 13:21 Report Date: 01/23/2024 [...] Cadet M.D. 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) Active confirmed Problem Contracture of joint of left ankle (disorder) (631339884977509) Contracture, left ankle (M24.572) Active confirmed Problem Hyperlipidemia (79261940) Hyperlipidemia (E78.5) Active confirmed Problem Venous insufficiency of leg (disorder) (345960290) Venous insufficiency (I87.2) Active confirmed Problem Chronic kidney disease (287273482) CKD (chronic kidney disease) (N18.9) Active confirmed Problem Chronic ulcer of foot (228246203) 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) Active confirmed Problem Acquired equinus deformity of left foot (M21.6X2) Active confirmed Problem Delayed healing of surgical wound (finding) (168149622) Delayed surgical wound healing, subsequent encounter (T81.89XD) Active confirmed Problem Delayed healing of surgical wound (finding) (427606270) Delayed surgical wound healing (T81.89XA) Active confirmed Problem Polyneuropathy due to type 2 diabetes mellitus (781039418) Diabetes mellitus with 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 (E11.42) Active confirmed Problem Foot ulcer due to type 2 diabetes mellitus (2737570319202) Diabetes mellitus with foot ulcer due to multiple causes (E11.621) Active confirmed Problem Chronic osteomyelitis of left ankle (2711685697381071 ) Chronic osteomyelitis of left ankle (M86.672) [...] exposed (L97.422) Active confirmed Plan Of Treatment No Information Insurance Providers Payer Name Payer Address Payer Phone Subscriber Number Group Number Insured Name Patient Relationship to Insured Coverage Start Date Coverage End Date [employer] PPO PLUS LOCAL PLAN [address] [place] [address] [id number] Arabella Lyman Spouse - patient is the spouse of the insured 8 Medical (General) History Surgical History Surgery Date(Month/Year) Surgical / procedural histor y Carpal Tunnel release, Tonsillectomy, Adenoidectomy History of appendectomy History of cholecystectomy
--- OUTSIDE RECORDS SUMMARY | 2024-10-29 14:31 | XMS_ITS | Clinical Summary ---
Author Organization [id number] [address] [place] [address] Care Team Providers Care Aircraft Structure Mechanic Name Role Phone Tod Charles DO, Charles [...] (05/28/2019): Added automatically from request for surgery [id number] Cellulitis of foot, left 09/29/2017 Other idiopathic [...] 02/10/2017 Medical Devices Not on file Insurance [facility] Advance Directives * Full Code (Latest Code Status on File) Date Activated Date Inactivated Comments 09/30/2017 12:06 PM 09/30/2017 8:03 PM Care Teams Aircraft Structure Mechanic Relationship Specialty Start Date End Date Jose Baron Jr., [address] [place], [place] [id number] PCP - General Internal Medicine 02/10/17
--- OUTSIDE RECORDS SUMMARY | 2024-10-29 14:31 | XMS_ITS | Clinical Summary ---
Author Organization [facility] Healthcare Address [address] [place] [address] Care Team Providers Care [place] Name Role Phone Jose Baron MD Primary Care Provider [phone] Social History Tobacco Use Types Packs/Day Years [...] Not on file Insurance BS Care Teams [place] Relationship Specialty Start Date End Date Jose Baron MD [address] [place] [address] PCP - General Internal Medicine 09/07/24
--- OUTSIDE RECORDS SUMMARY | 2024-10-29 14:31 | XMS_ITS | Encounter Summary ---
[facility] Organization [facility][id number] [address] [place] [address] Care Team Providers Care Circuit Breaker Mechanic Name Role Phone Tod Charles DO, Charles L Primary Care Provider Encounter Details Date Type Department Care Team (Late st Contact Info) Description 07/14/2020 Documentation [facility] Sign In [address] [place] [phone] Kishore Solorio MD [address] [place] [address] Social History Tobacco Use Types Packs/Day Years [...] documented as of this encounter Care Teams Circuit Breaker Mechanic Relationship Specialty Start Date End Date Jose Baron Jr., DO [address] [place] [address] PCP - General Internal Medicine 02/10/17 documented as of this encounter
--- OUTSIDE RECORDS SUMMARY | 2024-10-29 14:31 | XMS_ITS | Clinical Summary ---
Author Organization [facility] Address [address] [place] [address] Care Team Providers Care Relief Mate Name Role Phone Unavailable Primary Care Provider [...] - 2023-2 5 season) 2023 Influenza Vaccine (#1) 2024 HIB Vaccines Aged Out No longer [...] Most Recently Relevant to Health Maintenance Insurance [facility]
== END 2024-10-29 14:30 | disposition home or self-care (01) ==
LOC: WC 14:29
PROVIDERS: PCP Internal Medicine; Visit Provider Physician Assistant
DX: E11.621 Type 2 diabetes mellitus with foot ulcer (principal); T87.89 Other complications of amputation stump
CPT/HCPCS: 29445

== ENCOUNTER 2024-11-05 15:24 | Outpatient (OUT) | payer BC, SELFPAY | END 2024-11-05 15:25 | disposition home or self-care (01) | LOC: WC 15:24 | PROVIDERS: PCP Internal Medicine; Visit Provider Physician Assistant | DX: E11.621 Type 2 diabetes mellitus with foot ulcer (principal); L97.425 Non-pressure chronic ulcer of left heel and midfoot with muscle involvement without evidence of necrosis; T87.89 Other complications of amputation stump | CPT/HCPCS: 11043; 29445 ==

== ENCOUNTER 2024-11-16 15:31 | Outpatient (OUT) | payer BC, SELFPAY ==
--- OUTSIDE RECORDS SUMMARY | 2024-11-16 15:34 | XMS_ITS | Clinical Summary ---
Author Organization [employer] Address [facility] [id number] [address] [place] [address] Care Team Providers Care Credit Collection Specialist Name Role Phone Tod Charles DO, Charles [...] (05/28/2019): Added automatically from request for surgery [id number] Cellulitis of foot, left 09/29/2017 Other idiopathic [...] Devices Not on file Insurance [facility] Advance Directives * Full Code (Latest Code Status on File) Date Activated Date Inactivated Comments 09/30/2017 12:06 PM 09/30/2017 8:03 PM Care Teams Credit Collection Specialist Relationship Specialty Start Date End Date Jose Baron Jr., [address] [place], [place] [phone] PCP - General Internal Medicine 02/10/17
--- OUTSIDE RECORDS SUMMARY | 2024-11-16 15:35 | XMS_ITS | Patient Health Record ---
Author Organization [facility] [place] Address [address] [place] [address] Care Team Providers Care Drop Crew Laborer Name Role Phone William SIGALA, [place] Primary Care Provider Yanna flores Results Component Value Reference Range Notes CBC AUTO DIFF Reviewed date:10/26/2024 09:11:22 PM Interpretation: Performing Lab: Notes/Report: [facility] , White Blood Count 11.3 4.0-11.0 [...] Performing Lab: see note ML - [facility] CRP Reviewed date:10/26/2024 09:11:22 PM Interpretation: Performing Lab: Notes/Report: [facility] , C Reactive Protein 1.75 <=0.50 mg/dL Performing Lab: see note ML - [facility] PROF CHEM 8 (BAS METB) Reviewed date:10/26/2024 09:11:22 PM Interpretation: Performing Lab: Notes/Report: [facility] , Sodium 130 136-145 mmol/L Potassium [...] mg/dL Performing Lab: see note ML - [facility] Erythrocyte Sedimentation Ra te Reviewed date:10/26/2024 09:11:22 PM Interpretation: Performing Lab: Notes/Report: [facility] , Erythrocyte Sedimentation Rate >130 <=20 mm/hr Performing Lab: see note ML - [facility] LB MR ankle LT wo con Reviewed date:10/26/2024 09:11:22 PM Interpretation: Performing Lab: Notes/Report: Source Facility: [facility]-[address] [place] [address] [place] [address] Magnetic Resonance Report Signed Patient: RASHARD LYMAN MR#: [id number] : 1960 Acct:[id number] Age/Sex: 63 / M ADM Date: 01/30/24 Loc: MRI Attending Dr: Chino Zambrano D.P.M. Ordering Physician: Chino Zambrano D.P.M. Date of Service: 01/30/24 Procedure(s): MR ankle LT wo con Accession Number(s): [id number] cc: Chino Zambrano D.P.M.; GABRIEL JUAREZ D.O. [place] [address] Patient Name: RASHARD LYMAN MRN: [id number] date: 1960 Sex: M Assigned Patient Location: MRI Current Patient Location: MRI Accession/Order Number: [id number] Exam Date: 01/30/2024 13:30 Report Date: 01/31/2024 [...] M.D. Signed By: 01/31/241710 DD/ 08 TD/TT: [employer] Tool Maker: [place] [address] Magnetic Resonance Report Signed Patient: MOIRA LYMAN MR#: [id number] : 1960 Acct:[id number] Age/Sex: 63 / M ADM Date: 01/30/24 Loc: MRI Attending Dr: Chino Zambrano D.P.M. Ordering Physician: Chino Zambrano D.P.M. Date of Service: 01/30/24 Procedure(s): MR ank le LT wo con Accession Number(s): [id number] cc: Chino Zambrano D.P.M.; GABRIEL JUAREZ D.O. [place] [address] Patient Name: RASHARD LYMAN MRN: [id number] date: 1960 Sex: M Assigned Patient Location: MRI Current Patient Location: MRI Accession/Order Numb er: [id number] Exam Date: 13:30 Report Date: 01/31/2024 17:09 At the request of: CHINO ZAMBRANO Procedure: MR ankle LT wo con EXAM: MR ankle LT wo con. HISTORY: Ulcer, diamond cutter vasiliy osteomyelitis. COMPARISON: 01/21/2024 TECHNIQUE: MRI image [...] M.D. Signed By: 01/31/241710 DD/ 08 TD/TT: [employer] Instrument [employer] Tool Maker: Gram Stain Result Reviewed date:10/26/2024 09:11:22 PM Interpretation: Performing Lab: Notes/Report: [facility] , Gram Stain Result See Below For Report Gram Stain Result WILL FOLLOW Gram Stain Result Rare white blood cells. Gram Stain Result WILL FOLLOW Gram Stain Result Gram Stain Result WILL FOLLOW Gram Stain Result No organisms seen Gram Stain Result WILL FOLLOW Gram Stain Result Performed at: [facility] Gram Stain Result WILL FOLLOW Gram Stain Result [address] [place] [phone] Gram Stain Result WILL FOLLOW Gram Stain Result Aircraft Structural Design Engineer: Phyllis Brian PhD, Phone: [phone] Gram Stain Result WILL FOLLOW Performing Lab: see note LC - [facility] LB SEE REPORT - Hogshead Roller Id information not found for OBX-specific supervising producer legend Tissue Culture Reviewed date:10/26/2024 09:11:22 PM Interpretation: [...] Lab: see note LC - [facility] LB Tissue Culture Reviewed date:10/26/2024 09:11:22 PM Interpretation: Performing Lab: Notes/Report: [facility] , Tissue Culture See Below For Report Tissue Culture Please refer to the following specimen for additional lab results. Tissue Culture SEE: [phone] Tissue Culture Please refer to the following specimen for additional lab results. Performing Lab: see note LC - [facility] LB SEE REPORT - Hogshead Roller Id information not found for OBX-specific supervising producer legend XR foot RT min 3V Reviewed date:10/26/2024 09:11:22 PM Interpretation: Performing Lab: Notes/Report: Source Facility: [place] [address] XRay Report Signed Patient: RASHARD LYMAN MR#: [id number] : 1960 Acct:[id number] Age/Sex: 64 / M ADM Date: 08/26/24 Loc: MS 229-[address]: Ajay Vizcaino M.D. Ordering Physician: Chino Zambrano D.P.M. Date of Service: 08/28/24 Procedure(s): XR foot RT min 3V Accession Number(s): [id number] cc: Chino Zambrano D.P.M.; GABRIEL JUAREZ D.O. The [place] [address] Patient Name: RASHARD LYMAN MRN: [id number] date: 1960 Sex: M Assigned Patient Location: MS Current Patient Location: MS Accession/Order Number: [id number] Exam Date: 08/28/2024 11:46 Report Date: 08/28/2024 [...] Jr., D.O. 08/28/2024 11:47 AM Dictation Location: [place] [address] Electronically authenticated by: [id number] Y Date: 08/28/2024 11:47 Dictated By: Clayton Cuevas M.D. Signed By: 08/28/24 1150 DD/ 1147 TD/TT: [employer] Tool Maker: [place] [address] XRay Report Signed Patient: MOIRA LYMAN MR#: [id number] : 1960 Acct:[id number] Age/Sex: 64 / M ADM Date: 08/26/24 Loc: MS 229-[address]: Ajay Vizcaino M.D. Ordering Physician: Chino Zambrano D.P.M. Date of Service: 08/28/24 Procedure(s): XR jeanette t RT min 3V Accession Number(s): [id number] cc: Chino Zambrano D.P.M.; GABRIEL JUAREZ D.O. [place] [address] Patient Name: RASHARD LYMAN MRN: [id number] date: 1960 Sex: M Assigned Patient Location: MS Current Patient Location: MS Accession/Order Numb er: [id number] Exam Date: 08/28/2024 11:46 Report Date: 08/28/2024 [...] Jr., D.O. 08/28/2024 11:47 AM Dictation [facility] authenticated by: [id number] Y Date: 08/28/2024 11:47 Dictated By: Clayotn Cuevas M.D. Signed By: 08/28/24 1150 DD/ 1147 TD/TT: [employer] Instrument [employer] Maker: MAGNESIUM Reviewed date:10/25/2024 01:27:08 PM Interpretation: Performing Lab: Notes/Report: [facility] , Magnesium 2.4 1.8-2.4 mg/dL Performing Lab: see note - [facility] LB Venous Blood Gas Reviewed date:10/25/2024 01:27:08 PM Interpretation: Performing Lab: Notes/Report: [facility] , pH VBG 7.250 7.330-7.430 PCO2 VBG 31.6 40.0-52.0 mmHg Performing Lab: see note ML - [facility] LB CBC AUTO DIFF Reviewed date:10/25/2024 01:27:08 PM Interpretation: Performing Lab: Notes/Report: [facility] , White Blood Count 12.2 4.0-11.0 10 [...] fL Performing Lab: see note ML - [facility] LB CRP Reviewed date:10/25/2024 01:27:08 PM Interpretation: Performing Lab: Notes/Report: [facility] , C Reactive Protein 24.31 <=0.50 mg/dL Performing Lab: see note ML - [facility] LB MAGNESIUM Reviewed date:10/25/2024 01:27:08 PM Interpretation: Performing Lab: Notes/Report: [facility] , Magnesium 2.2 1.8-2.4 mg/dL Performing Lab: see note - [facility] LB PROF 14(COMP METB) Reviewed date:10/25/2024 01:27:08 PM Interpretation: Performing Lab: Notes/Report: [facility] , Sodium 131 136-145 mmol/L Potassium 4.5 [...] 0.3 Performing Lab: see note ML - [facility] LB Manual Differential Reviewed date:10/25/2024 01:27:08 PM Interpretation: Performing Lab: Notes/Report: [facility] , Segmented Neutrophils % Manual 70.0 43.0-75.0 [...] 0.00-0.10 10 3/uL Performing Lab: see note - [facility] LB CBC AUTO DIFF Reviewed date:10/26/2024 09:11:22 PM Interpretation: Performing Lab: Notes/Report: [facility] , White Blood Count 12.5 4.0-11.0 10 [...] Performing Lab: see note ML - [facility] CRP Reviewed date:10/26/2024 09:11:22 PM Interpretation: Performing Lab: Notes/Report: [facility] , C Reactive Protein 23.66 <=0.50 mg/dL Performing Lab: see note ML - [facility] MAGNESIUM Reviewed date:10/26/2024 09:11:22 PM Interpretation: Performing Lab: Notes/Report: [facility] , Magnesium 2.3 1.8-2.4 mg/dL Performing Lab: see note ML - [facility] LB PROF 14(COMP METB) Reviewed date:10/26/2024 09:11:22 PM Interpretation: Performing Lab: Notes/Report: [facility] , Sodium 135 136-145 mmol/L Potassium 4.7 [...] Performing Lab: see note ML - [facility] Venous Blood Gas Reviewed date:10/26/2024 09:11:22 PM Interpretation: Performing Lab: Notes/Report: [facility] , pH VBG 7.296 7.330-7.430 PCO2 VBG 30.8 40.0-52.0 mmHg Performing Lab: see note ML - [facility] Fungus (Mycology) Culture Reviewed date:10/26/2024 09:11:22 PM Interpretation: Performing Lab: Notes/Report: Comment right hallux [facility] , Fungus (Mycology) Culture See Below For Report Fungus (Mycology) Culture Please refer to the following specimen for additional lab results. Fungus (Mycology) Culture SEE: [phone] Fungus (Mycology) Culture Please refer to the following specimen for additional lab results. Performing Lab: see note - [facility] LB SEE REPORT - Hogshead Roller Id information not found for OBX-specific supervising producer legend Fungus Stain Reviewed date:10/26/2024 09:11:22 PM Interpretation: Performing Lab: Notes/Report: Comment right hallux [facility] , Fungus Stain See Below For Report Fungus Stain Fungus Stain Please refer to the following specimen for additional lab results. Fungus Stain Fungus Stain SEE: [phone] Fungus Stain Performing Lab: see note - [facility] LB SEE REPORT - Hogshead Roller Id information not found for OBX-specific supervising producer legend Acid Fast Culture Reviewed date:10/26/2024 09:11:22 PM Interpretation: Performing Lab: Notes/Report: Comment right [facility] , Acid Fast Culture See Below For Report Acid Fast Culture Specimen has been received and testing has been initiated. Acid Fast Culture Performed at: [facility] Acid Fast Culture Specimen has been received and testing has been initiated. Acid Fast Culture [address] [place], [place] [id number] Acid Fast Culture Specimen has been received and testing has been initiated. Acid Fast Culture Aircraft Structural Design Engineer: Phyllis Brian PhD, Phone: [phone] Acid Fast Culture Specimen has been received and testing has been initiated. Performing Lab: see note - [facility] LB SEE REPORT - Hogshead Roller Id information not found for OBX-specific supervising producer legend Acid Fast Smear Reviewed date:10/26/2024 09:11:22 PM [...] [facility] LB XR ankle LT min 3V Reviewed date:10/26/2024 09:11:22 PM Interpretation: Performing Lab: Notes/Report: Source Facility: [place] [address] [place] [address] XRay Report Signed Patient: RASHARD LYMAN MR#: [id number] : 1960 Acct:[id number] Age/Sex: 63 / M ADM Date: 01/21/24 Loc: Attending Dr: Chino Zambrano D.P.M. Ordering Physician: Chino Zambrano D.P.M. Date of Service: 01/21/24 Procedure(s): XR ankle LT min 3V Accession Number(s): [id number] cc: Chino Zambrano D.P.M.; GABRIEL JUAREZ D.O. The [place] [address] Patient Name: RASHARD LYMAN MRN: [id number] date: 1960 Sex: M Assigned Patient Location: Current Patient Location: Accession/Order Number: [id number] Exam Date: 01/21/2024 13:21 Report Date: 01/23/2024 [...] M.D. Signed By: 01/23/24647 DD/ 4 TD/TT: [employer] Instrument [employer] Tool Maker: [place] [address] XRay Report Signed Patient: MOIRA LYMAN MR#: [id number] : 1960 Acct:[id number] Age/Sex: 63 / M ADM Date: 01/21/24 Loc: Attending Dr: Chino Zambrano D.P.M. Ordering Physician: Chino Zambrano D.P.M. Date of Service: 01/21/24 Procedure(s): XR ank le LT min 3V Accession Number(s): [id number] cc: Chino Zambrano D.P.M.; GABRIEL JUAREZ D.O. [place] [id number] Patient Name: RASHARD LYMAN MRN: [id number] date: 1960 Sex: M Assigned Patient Location: Current Patient Location: Accession/Order Numb er: [id number] Exam Date: 01/21/2024 13:21 Report Date: 01/23/2024 [...] Cadet M.D. 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) Active confirmed Problem Contracture of joint of left ankle (disorder) (059033124866782) Contracture, left ankle (M24.572) Active confirmed Problem Hyperlipidemia (63730710) Hyperlipidemia (E78.5) Active confirmed Problem Venous insufficiency of leg (disorder) (653838010) Venous insufficiency (I87.2) Active confirmed Problem Chronic kidney disease (936184224) CKD (chronic kidney disease) (N18.9) Active confirmed Problem Chronic ulcer of foot (489748041) 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) Active confirmed Problem Acquired equinus deformity of left foot (M21.6X2) Active confirmed Problem Delayed healing of surgical wound (finding) (853962515) Delayed surgical wound healing, subsequent encounter (T81.89XD) Active confirmed Problem Delayed healing of surgical wound (finding) (197775154) Delayed surgical wound healing (T81.89XA) Active confirmed Problem Polyneuropathy due to type 2 diabetes mellitus (521408642) Diabetes mellitus with 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 (E11.42) Active confirmed Problem Foot ulcer due to type 2 diabetes mellitus (9049297923891) Diabetes mellitus with foot ulcer due to multiple causes (E11.621) Active confirmed Problem Chronic osteomyelitis of left ankle (8819676144034441 ) Chronic osteomyelitis of left ankle (M86.672) Active confirmed Problem Non-pressure chronic ulcer of left heel and midfoot with muscle involvement without evidence of necrosis (L97.425) Active confirmed Problem Non-pressure chronic ulcer of [...] ACCESS PPO PLUS LOCAL PLAN [address] [place] [address] [id number] Arabella Lyman Spouse - patient is the spouse of the insured 8 Medical (General) History Surgical History Surgery Date(Month/Year) History of cholecystectomy History of appendectomy Surgical / procedural histor y Carpal Tunnel release, Tonsillectomy, Adenoidectomy
--- OUTSIDE RECORDS SUMMARY | 2024-11-16 15:35 | XMS_ITS | Clinical Summary ---
Author Organization [facility] Address [address] [place] [address] Care Team Providers Care Motion Picture Set Worker Name Role Phone Unavailable Primary Care Provider [...] Most Recently Relevant to Health Maintenance Insurance [facility]
--- OUTSIDE RECORDS SUMMARY | 2024-11-16 15:35 | XMS_ITS | Clinical Summary ---
Author Organization [facility] Address [address] [place] [address] Care Team Providers Care Punch Press Operator Helper Name Role Phone Jose Baron MD Primary Care Provider [phone] Social History Tobacco Use Types Packs/Day Years [...] Not on file Insurance BS Care Teams Punch Press Operator Helper Relationship Specialty Start Date End Date Jose Baron MD [address] [place] [address] PCP - General Internal Medicine 09/07/24
--- OUTSIDE RECORDS SUMMARY | 2024-11-16 15:35 | XMS_ITS | Encounter Summary ---
Author Organization [facility] Address [address] [place] [address] Care Team Providers Care Circuit Recorder Name Role Phone Jose Baron MD Primary Care Provider [phone] Encounter Details Date Type Department Care Team (Late st Contact Info) Description 11/19/2023 Clinisync Result Encounter [facility] External Department Unsolicited Ajay Archer MD [address] [place] [phone] Social History Tobacco Use Types Packs/Day Years [...] EDT Narrative 11/19/2023 5:27 PM EDT The [address] [address] Ultrasound Report Signed Patient: RASHARD LYMAN MR#: [id number] : 1960 Acct:[id number] Age/Sex: 63 / M ADM Date: 11/19/23 Loc: US Attending Dr: Ajay Archer M.D. Ordering Physician: Ajay Archer M.D. Date of Service: 11/19/23 Procedure(s): US venous doppler LE LT Accession Number(s): [id number] cc: Imer Zambrano D.P.M.; Ajay Archer M.D. [address] [address] Patient Name: RASHARD LYMAN MRN: [id number] date: 1960 Sex: M Assigned Patient Location: US Current Patient Location: US Accession/Order Number: [id number] Exam Date: 11/19/2023 16:06 Report Date: 11/19/2023 [...] M.D. Signed By: 11/19/231726 DD/ 23 TD/TT: Cut Off Sawyer: Procedure Note Radiology, Radiologist, MD - 11/19/[address] [address] Ultrasound Report Signed Patient: RASHARD LYMANMR#: [id number] : 1960Acct:[id number] Age/Sex: 63 / MADM Date: 11/19/23 Loc: US Attending Dr: Ajay Archer M.D. Ordering Physician: Ajay Archer M.D. Date of Service: 11/19/23 Procedure(s): US venous doppler LE LT Accession Number(s): [id number] cc: Imer Zambrano D.P.M.; Ajay Archer M.D. [place] [id number] Patient Name: RASHARD LYMAN MRN: [id number] date: 1960 Sex: M Assigned Patient Location: US Current Patient Location: US Accession/Order Number: [id number] Exam Date: 11/19/2023 16:06 Report Date: 11/19/2023 [...] Venegas M.D. Signed By:11/19/231726 DD/ 23 TD/TT: Cut Off Sawyer: Ajay Archer MD [facility] Final Result documented in this encounter Visit Diagnoses Not on filedocumented in this encounter Care Teams Circuit Recorder Relationship Specialty Start Date End Date Jose Baron MD [facility] [place] [id number] PCP - General Internal Medicine 09/07/24 documented as of this encounter
[2024-11-16 16:24] LABS: Alanine Aminotransferase 40 U/L (16-63); Albumin Globulin Ratio 0.4; Albumin Level 2.3 g/dL (3.4-5.0); Alkaline Phosphatase 109 U/L (46-116); Anion Gap 15.1; Aspartate Amino Transferase 34 U/L (15-37); Blood Urea Nitrogen 54.0 mg/dL (7.0-18.0); Carbon Dioxide 21.2 mmol/L (21.0-32.0); Chloride 104 mmol/L (98-107); Estimated GFR (African America 13 (>=60 mL/min/1.73m^2); Estimated GFR (Non-African Ame 11 (>=60 mL/min/1.73m^2); Globulin 5.2 g/dL; Potassium 5.3 mmol/L (3.5-5.1); Sodium 135 mmol/L (136-145); Thyroid Stimulating Hormone 3.030 uIU/mL (0.358-3.740); Total Protein 7.5 g/dL (6.4-8.2)
[2024-11-16 16:35] LABS: NT Pro B Type Natriuretic Pept 1685.0 pg/mL (<=900.0)
== END 2024-11-16 15:32 | disposition home or self-care (01) ==
LOC: LAB 15:32
PROVIDERS: PCP Internal Medicine; Visit Provider Internal Medicine
DX: R06.02 Shortness of breath (principal); D50.9 Iron deficiency anemia, unspecified; E11.65 Type 2 diabetes mellitus with hyperglycemia; E55.9 Vitamin D deficiency, unspecified; Z79.899 Other long term (current) drug therapy
CPT/HCPCS: 36415; 80051; 80076; 82306; 82565; 83036; 83880; 84443; 84520

== ENCOUNTER 2024-11-16 15:51 | Outpatient (OUT) | payer BC, SELFPAY ==
--- OUTSIDE RECORDS SUMMARY | 2024-11-16 15:54 | XMS_ITS | Encounter Summary ---
Author [id number] [address] [place] [address] Care Team Providers Care Vp Legal Affairs Name Role Phone Tod Charles DO, Charles L Primary Care Provider Encounter Details Date Type Department Care Team (Late st Contact Info) Description 07/14/2020 Documentation [facility] Physician Sign In [address] [place] [phone] Kishore Solorio MD [address] [place] [address] Social History Tobacco Use Types Packs/Day Years [...] documented as of this encounter Care Teams Vp Legal Affairs Relationship Specialty Start Date End Date Jose Baron Jr., DO [address] [place] [address] PCP - General Internal Medicine 02/10/17 documented as of this encounter
== END 2024-11-16 15:52 | disposition home or self-care (01) ==
LOC: WC 15:52
PROVIDERS: PCP Internal Medicine; Visit Provider Physician Assistant
DX: R06.02 Shortness of breath (principal); D50.9 Iron deficiency anemia, unspecified; E11.65 Type 2 diabetes mellitus with hyperglycemia; Z79.899 Other long term (current) drug therapy; E11.621 Type 2 diabetes mellitus with foot ulcer; L97.425 Non-pressure chronic ulcer of left heel and midfoot with muscle involvement without evidence of necrosis; T87.89 Other complications of amputation stump
CPT/HCPCS: 29445; 36415; 80051; 80076; 82306; 82565; 83036; 83880; 84443; 84520

== ENCOUNTER 2024-11-23 15:01 | Outpatient (OUT) | payer BC, SELFPAY ==
--- OUTSIDE RECORDS SUMMARY | 2024-11-23 15:03 | XMS_ITS | Clinical Summary ---
Author Organization [facility] Address [address] [place] [address] Care Team Providers Care Regional Business Manager Name Role Phone Unavailable Primary Care Provider [...] Most Recently Relevant to Health Maintenance Insurance [facility]
--- OUTSIDE RECORDS SUMMARY | 2024-11-23 15:03 | XMS_ITS | Encounter Summary ---
Author Organization [facility] Address [address] [place] [address] Care Team Providers Care E Commerce Merchant Name Role Phone Jose Baron MD Primary Care Provider [phone] Encounter Details Date Type Department Care Team (Late st Contact Info) Description 11/19/2023 Clinisync Result Encounter [facility] External Department Unsolicited Ajay Archer MD [address] [place] [phone] Social History Tobacco Use Types Packs/Day Years [...] EDT Narrative 11/19/2023 5:27 PM EDT The [address] [address] Ultrasound Report Signed Patient: RASHARD LYMAN MR#: [id number] : 1960 Acct:[id number] Age/Sex: 63 / M ADM Date: 11/19/23 Loc: US Attending Dr: Ajay Archer M.D. Ordering Physician: Ajay Acrher M.D. Date of Service: 11/19/23 Procedure(s): US venous doppler LE LT Accession Number(s): [id number] cc: Imer Zambrano D.P.M.; Ajay Archer M.D. [address] [address] Patient Name: RASHARD LYMAN MRN: [id number] date: 1960 Sex: M Assigned Patient Location: US Current Patient Location: US Accession/Order Number: [id number] Exam Date: 11/19/2023 16:06 Report Date: 11/19/2023 [...] M.D. Signed By: 11/19/231726 DD/ 23 TD/TT: Departmental Buyer: Procedure Note Radiology, Radiologist, MD - 11/19/[address] [address] Ultrasound Report Signed Patient: RASHARD LYMANMR#: [id number] : 1960Acct:[id number] Age/Sex: 63 / MADM Date: 11/19/23 Loc: US Attending Dr: Aajy Archer M.D. Ordering Physician: Ajay Archer M.D. Date of Service: 11/19/23 Procedure(s): US venous doppler LE LT Accession Number(s): [id number] cc: Imer Zambrano D.P.M.; Ajay Archer M.D. [place] [id number] Patient Name: RASHARD LYMAN MRN: [id number] date: 1960 Sex: M Assigned Patient Location: US Current Patient Location: US Accession/Order Number: [id number] Exam Date: 11/19/2023 16:06 Report Date: 11/19/2023 [...] Venegas M.D. Signed By:11/19/231726 DD/ 23 TD/TT: Departmental Buyer: Ajay Archer MD [facility] Final Result documented in this encounter Visit Diagnoses Not on filedocumented in this encounter Care Teams E Commerce Merchant Relationship Specialty Start Date End Date Jose Baron MD [facility] [place] [phone] PCP - General Internal Medicine 09/07/24 documented as of this encounter
--- OUTSIDE RECORDS SUMMARY | 2024-11-23 15:03 | XMS_ITS | Patient Health Record ---
Author Organization The [facility] [place] Address [address] [place] [address] Care Team Providers Care Mushroom Spawn Maker Name Role Phone William SIGALA, [place] Primary Care Provider Yanna flores Results Component Value Reference Range Notes CBC AUTO DIFF Reviewed date:10/26/2024 09:11:22 PM Interpretation: Performing Lab: Notes/Report: [facility] , White Blood Count 11.3 4.0-11.0 [...] see note ML - [facility] LB CRP Reviewed date:10/26/2024 09:11:22 PM Interpretation: Performing Lab: Notes/Report: [facility] , C Reactive Protein 1.75 <=0.50 mg/dL Performing Lab: see note ML - [facility] PROF CHEM 8 (BAS METB) Reviewed date:10/26/2024 09:11:22 PM Interpretation: Performing Lab: Notes/Report: [facility] , Sodium 130 136-145 mmol/L Potassium [...] mg/dL Performing Lab: see note ML - [facility] Erythrocyte Sedimentation Ra te Reviewed date:10/26/2024 09:11:22 PM Interpretation: Performing Lab: Notes/Report: [facility] , Erythrocyte Sedimentation Rate >130 <=20 mm/hr Performing Lab: see note ML - [facility] MR ankle LT wo con Reviewed date:10/26/2024 09:11:22 PM Interpretation: Performing Lab: Notes/Report: Source Facility: [facility] [place] [address] [place] [address] Magnetic Resonance Report Signed Patient: RASHARD LYMAN MR#: [id number] : 1960 Acct:[id number] Age/Sex: 63 / M ADM Date: 01/30/24 Loc: MRI Attending Dr: Chino Zambrano D.P.M. Ordering Physician: Chino Zambrano D.P.M. Date of Service: 01/30/24 Procedure(s): MR ankle LT wo con Accession Number(s): [id number] cc: Chino Zambrano D.P.M.; GABRIEL JUAREZ D.O. [place] [address] Patient Name: RASHARD LYMAN MRN: [id number] date: 1960 Sex: M Assigned Patient Location: MRI Current Patient Location: MRI Accession/Order Number: [id number] Exam Date: 01/30/2024 13:30 Report Date: 01/31/2024 [...] M.D. Signed By: 01/31/241710 DD/ 08 TD/TT: Maintainability Engineer: [place] [address] Magnetic Resonance Report Signed Patient: MOIRA LYMAN MR#: [id number] : 1960 Acct:[id number] Age/Sex: 63 / M ADM Date: 01/30/24 Loc: MRI Attending Dr: Chino Zambrano D.P.M. Ordering Physician: Chino Zambrano D.P.M. Date of Service: 01/30/24 Procedure(s): MR ank le LT wo con Accession Number(s): [id number] cc: Chino Zambrano D.P.M.; GABRIEL JUAREZ D.O. [place] [address] Patient Name: RASHARD LYMAN MRN: [id number] date: 1960 Sex: M Assigned Patient Location: MRI Current Patient Location: MRI Accession/Order Numb er: [id number] Exam Date: 13:30 Report Date: 01/31/2024 17:09 At the request of: CHINO ZAMBRANO Procedure: MR ankle LT wo con EXAM: MR ankle LT wo con. HISTORY: Ulcer, film maker vasiliy osteomyelitis. COMPARISON: 01/21/2024 TECHNIQUE: MRI image [...] Dictated By: Lorene Duval M.D. Signed By: 01/31/24 1711 DD/ 1709 TD/TT: Maintainability Engineer: Tissue Culture Reviewed date:10/26/2024 09:11:22 PM Interpretation: [...] [facility] LB XR foot RT min 3V Reviewed date:10/26/2024 09:11:22 PM Interpretation: Performing Lab: Notes/Report: Source Facility: [place] [address] [place] [address] XRay Report Signed Patient: RASHARD LYMAN MR#: [id number] : 1960 Acct:[id number] Age/Sex: 64 / M ADM Date: 08/26/24 Loc: [place] 229-[address]: Ajay Vizcaino M.D. Ordering Physician: Chino Zambrano D.P.M. Date of Service: 08/28/24 Procedure(s): XR foot RT min 3V Accession Number(s): [id number] cc: Chino Zambrano D.P.M.; GABRIEL JUAREZ D.O. [place] [address] Patient Name: RASHARD LYMAN MRN: [id number] date: 1960 Sex: M Assigned Patient Location: [place] Current [place] Location: [place] Accession/Order Number: [id number] Exam Date: 08/28/2024 11:46 Report Date: 08/28/2024 [...] Jr. DMigdalia 08/28/2024 11:47 AM Dictation Location: [place] [address] Electronically authenticated by: [id number] Y Date: 08/28/2024 11:47 Dictated By: Clayton Cuevas M.D. Signed By: 08/28/24 1150 DD/ 1147 TD/TT: Maintainability Engineer: [address] [address] XRay Report Signed Patient: MOIRA LYMAN MR#: [id number] : 1960 Acct:[id number] Age/Sex: 64 / M ADM Date: 08/26/24 Loc: [place] 229-[address]: Ajay Vizcaino M.D. Ordering Physician: Chino Zambrano D.P.M. Date of Service: 08/28/24 Procedure(s): XR jeanette t RT min 3V Accession Number(s): [id number] cc: Chino Zambrano D.P.M.; GABRIEL JUAREZ D.O. [place] [address] Patient Name: RASHARD LYMAN MRN: [id number] date: 1960 Sex: M Assigned Patient Location: [place] Current Patient Location: [place] Accession/Order Numb er: [id number] Exam Date: 08/28/2024 11:46 Report Date: 08/28/2024 [...] Jr., D.O. 08/28/2024 11:47 AM Dictation Location: [place] [address] Electronically authenticated by: [id number] Y Date: 08/28/2024 11:47 Dictated By: Clayton Cuevas M.D. Signed By: 08/28/24 1150 DD/ 1147 TD/TT: Maintainability Engineer: ROBBIN Galvez date:10/25/2024 01:27:08 PM Interpretation: Performing Lab: Notes/Report: [facility] , Magnesium 2.4 1.8-2.4 mg/dL Performing Lab: see note ML - [facility] LB Venous Blood Gas Reviewed date:10/25/2024 01:27:08 PM Interpretation: Performing Lab: Notes/Report: [facility] , pH VBG 7.250 7.330-7.430 PCO2 VBG 31.6 40.0-52.0 mmHg Performing Lab: see note ML - [facility] LB CBC AUTO DIFF Reviewed date:10/25/2024 01:27:08 PM Interpretation: Performing Lab: Notes/Report: [facility] , White Blood Count 12.2 4.0-11.0 [...] fL Performing Lab: see note ML - [facility] LB CRP Reviewed date:10/25/2024 01:27:08 PM Interpretation: Performing Lab: Notes/Report: [facility] , C Reactive Protein 24.31 <=0.50 mg/dL Performing Lab: see note ML - [facility] LB MAGNESIUM Reviewed date:10/25/2024 01:27:08 PM Interpretation: Performing Lab: Notes/Report: [facility] , Magnesium 2.2 1.8-2.4 mg/dL Performing Lab: see note ML - [facility] LB PROF 14(COMP METB) Reviewed date:10/25/2024 01:27:08 PM Interpretation: Performing Lab: Notes/Report: [facility] , Sodium 131 136-145 mmol/L Potassium 4.5 3.5-5.1 mmol/L Chloride 102 98-107 mmol/L Carbon Dioxide 15.0 21.0-32.0 mmol/L Anion Gap 18.5 Glucose 274 74-106 mg/dL Blood Urea Nitrogen 84.0 7.0-18.0 mg/dL RESULTS CALLED TO Ines Mann RN @BY JORDAN BarahonaT at 0647 Creatinine 4.89 0.70-1.30 mg/dL Estimated [...] Globulin Ratio 0.3 Performing Lab: see note [facility] LB Manual Differential Reviewed date:10/25/2024 01:27:08 PM Interpretation: Performing Lab: Notes/Report: [facility] , Segmented Neutrophils % Manual 70.0 [...] 0.00-0.10 10 3/uL Performing Lab: see note [facility] LB CBC AUTO DIFF Reviewed date:10/26/2024 09:11:22 PM Interpretation: Performing Lab: Notes/Report: [facility] , White Blood Count 12.5 4.0-11.0 [...] see note ML - [facility] LB CRP Reviewed date:10/26/2024 09:11:22 PM Interpretation: Performing Lab: Notes/Report: [facility] , C Reactive Protein 23.66 <=0.50 mg/dL Performing Lab: see note ML - [facility] LB MAGNESIUM Reviewed date:10/26/2024 09:11:22 PM Interpretation: Performing Lab: Notes/Report: [facility] , Magnesium 2.3 1.8-2.4 mg/dL Performing Lab: see note - [facility] LB PROF 14(COMP METB) Reviewed date:10/26/2024 09:11:22 PM Interpretation: Performing Lab: Notes/Report: [facility] , Sodium 135 136-145 mmol/L Potassium [...] 0.3 Performing Lab: see note ML - [facility] Venous Blood Gas Reviewed date:10/26/2024 09:11:22 PM Interpretation: Performing Lab: Notes/Report: [facility] , pH VBG 7.296 7.330-7.430 PCO2 VBG 30.8 40.0-52.0 mmHg Performing Lab: see note [facility] Tissue Culture Reviewed date:10/26/2024 09:11:22 PM Interpretation: Performing Lab: Notes/Report: [facility] , Tissue Culture See Below For Report Tissue Culture Please refer to the following specimen for additional lab results. Tissue Culture SEE: [phone] Tissue Culture Please refer to the following specimen for additional lab results. Performing Lab: see note SEE REPORT - Sales Appointment Coordinator Id information not found for OBX-specific line producer legend - [facility] LB Gram Stain Result Reviewed [...] WILL FOLLOW Gram Stain Result Performed at: [facility] Gram Stain Result WILL FOLLOW Gram Stain Result [address] [place], [place] [id number] Gram Stain Result WILL FOLLOW Gram Stain Result Turner Machine: Phyllis Brian PhD, Phone: [phone] Gram Stain Result WILL FOLLOW Performing Lab: see note SEE REPORT - Sales Appointment Coordinator Id information not found for OBX-specific line producer legend [facility] LB Fungus (Mycology) Culture Reviewed date:10/26/2024 09:11:22 PM Interpretation: Performing Lab: Notes/Report: Comment right [facility] , Fungus (Mycology) Culture See Below For Report Fungus (Mycology) Culture Please refer to the following specimen for additional lab results. Fungus (Mycology) Culture SEE: [phone] Fungus (Mycology) Culture Please refer to the following specimen for additional lab results. Performing Lab: see note SEE REPORT - Sales Appointment Coordinator Id information not found for OBX-specific line producer legend [facility] LB Fungus Stain Reviewed date:10/26/2024 09:11:22 PM Interpretation: Performing Lab: Notes/Report: Comment right lovellux [facility] , Fungus Stain See Below For Report Fungus Stain Fungus Stain Please refer to the following specimen for additional lab results. Fungus Stain Fungus Stain SEE: [phone] Fungus S tain Performing Lab: see note SEE REPORT - Sales Appointment Coordinator Id information not found for OBX-specific line producer legend [facility] LB Acid Fast Culture Reviewed date:10/26/2024 09:11:22 PM Interpretation: Performing Lab: Notes/Report: Comment right [facility] , Acid Fast Culture See Below For Report Specimen has been received and testing has been initiated. Acid Fast Culture Acid Fast Culture Performed at: [facility] Specimen has been received and testing has been initiated. Acid Fast Culture Acid Fast Culture [address] [place], [place] [id number] Specimen has been received and testing has been initiated. Acid Fast Culture Acid Fast Culture Turner Machine: Phyllis Brian PhD, Phone: [phone] Specimen has been received and testing has been initiated. Acid Fast Culture Performing Lab: see note SEE REPORT - Sales Appointment Coordinator Id information not found for OBX-specific line producer legend [facility] LB Acid Fast Smear Reviewed date:10/26/2024 09:11:22 [...] PM Interpretation: Performing Lab: Notes/Report: Source Facility: [place] [address] [place] [address] XRay Report Signed Patient: RASHARD LYMAN MR#: [id number] : 1960 Acct:[id number] Age/Sex: 63 / M ADM Date: 01/21/24 Loc: Attending Dr: Chino Zmabrano D.P.M. Ordering Physician: Chino Zambrano D.P.M. Date of Service: 01/21/24 Procedure(s): XR ankle LT min 3V Accession Number(s): [id number] cc: Chino Zambrano D.P.M.; GABRIEL JUAREZ D.O. [place] [address] Patient Name: RASHARD LYMAN MRN: [id number] date: 1960 Sex: M Assigned Patient Location: Current Patient Location: Accession/Order Number: [id number] Exam Date: 01/21/2024 13:21 Report Date: 01/23/2024 [...] M.D. Signed By: 01/23/2448 DD/ 4 TD/TT: Maintainability Engineer: [place] [address] XRay Report Signed Patient: MOIRA LYMAN MR#: [id number] : 1960 Acct:[id number] Age/Sex: 63 / M ADM Date: 01/21/24 Loc: Attending Dr: Chino Zambrano D.P.M. Ordering Physician: Chino Zambrano D.P.M. Date of Service: 01/21/24 Procedure(s): XR ank le LT min 3V Accession Number(s): [id number] cc: Chino Zambrano D.P.M.; GABRIEL JUAREZ D.O. [place] [id number] Patient Name: RASHARD LYMAN MRN: [id number] date: 1960 Sex: M Assigned Patient Location: Current Patient Location: Accession/Order Numb er: [id number] Exam Date: 01/21/2024 13:21 Report Date: 01/23/2024 [...] M.D. 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) Active confirmed Problem Contracture of joint of left ankle (disorder) (105503388604068) Contracture, left ankle (M24.572) Active confirmed Problem Hyperlipidemia (19174816) Hyperlipidemia (E78.5) Active confirmed Problem Venous insufficiency of leg (disorder) (331495206) Venous insufficiency (I87.2) Active confirmed Problem Chronic kidney disease (713793514) CKD (chronic kidney disease) (N18.9) Active confirmed Problem Chronic ulcer of foot (977426279) 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) Active confirmed Problem Acquired equinus deformity of left foot (M21.6X2) Active confirmed Problem Delayed healing of surgical wound (finding) (059347548) Delayed surgical wound healing, subsequent encounter (T81.89XD) Active confirmed Problem Delayed healing of surgical wound (finding) (399557443) Delayed surgical wound healing (T81.89XA) Active confirmed Problem Polyneuropathy due to type 2 diabetes mellitus (118455153) Diabetes mellitus with 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 (E11.42) Active confirmed Problem Foot ulcer due to type 2 diabetes mellitus (3876993078855) Diabetes mellitus with foot ulcer due to multiple causes (E11.621) Active confirmed Problem Chronic osteomyelitis of left ankle (9769019390984244 ) Chronic osteomyelitis of left ankle (M86.672) [...] ACCESS PPO PLUS LOCAL PLAN [address] [place] [address] [phone] [id number] Arabella Lyman Spouse - patient is the spouse of the insured 8 Medical (General) History Surgical History Surgery Date(Month/Year) History of cholecystectomy History of appendectomy Surgical / procedural histor y Carpal Tunnel release, Tonsillectomy, Adenoidectomy
--- OUTSIDE RECORDS SUMMARY | 2024-11-23 15:03 | XMS_ITS | Clinical Summary ---
Author Organization [facility] Address [id number] [address] [place] [address] Care Team Providers Care Die Cutter Operator Name Role Phone Tod Charles DO, [...] (05/28/2019): Added automatically from request for surgery [id number] Cellulitis of foot, left 09/29/2017 Other idiopathic [...] Devices Not on file Insurance [employer] Advance Directives * Full Code (Latest Code Status on File) Date Activated Date Inactivated Comments 09/30/2017 12:06 PM 09/30/2017 8:03 PM Care Teams Die Cutter Operator Relationship Specialty Start Date End Date Jose Baron Jr., [address] [place], [place] [id number] PCP - General Internal Medicine 02/10/17
--- OUTSIDE RECORDS SUMMARY | 2024-11-23 15:03 | XMS_ITS | Clinical Summary ---
Author Organization [facility] Address [address] [place] [address] Care Team Providers Care Gm Mobile Name Role Phone Jose Baron MD Primary Care Provider [phone] Social History Tobacco Use Types Packs/Day Years [...] Not on file Insurance BS Care Teams Gm Mobile Relationship Specialty Start Date End Date Jose Baron MD [address] [place] [address] PCP - General Internal Medicine 09/07/24
== END 2024-11-23 15:02 | disposition home or self-care (01) ==
LOC: WC 15:01
PROVIDERS: PCP Internal Medicine; Visit Provider Physician Assistant
DX: E11.621 Type 2 diabetes mellitus with foot ulcer (principal); L97.425 Non-pressure chronic ulcer of left heel and midfoot with muscle involvement without evidence of necrosis; T87.89 Other complications of amputation stump
CPT/HCPCS: 29445

== ENCOUNTER 2024-12-01 14:27 | Outpatient (OUT) | payer BC, SELFPAY ==
--- OUTSIDE RECORDS SUMMARY | 2024-12-01 14:31 | XMS_ITS | Encounter Summary ---
Author Organization [facility] Address [address] [place] [address] Care Team Providers Care 911 Telecommunicator Name Role Phone Jose Baron MD Primary Care Provider [phone] Encounter Details Date Type Department Care Team (Late st Contact Info) Description 11/19/2023 Clinisync Result Encounter [facility] External Department Unsolicited Ajay Archer MD [address] [place] [id number] Social History Tobacco Use Types Packs/Day Years [...] EDT Narrative 11/19/2023 5:27 PM EDT The [address] [address] Ultrasound Report Signed Patient: RASHARD LYMAN MR#: [id number] : 1960 Acct:[id number] Age/Sex: 63 / M ADM Date: 11/19/23 Loc: US Attending Dr: Ajay Archer M.D. Ordering Physician: Ajay Archer M.D. Date of Service: 11/19/23 Procedure(s): US venous doppler LE LT Accession Number(s): [id number] cc: Imer Zambrano D.P.M.; Ajay Archer M.D. [address] [address] Patient Name: RASHARD LYMAN MRN: [id number] date: 1960 Sex: M Assigned Patient Location: [place] Current Patient Location: [place] Accession/Order Number: [id number] Exam Date: 11/19/2023 16:06 Report Date: 11/19/2023 [...] M.D. Signed By: 11/19/231726 DD/ 23 TD/TT: Payer Specialist: Procedure Note Radiology, Radiologist, MD - 11/19/[address] [address] Ultrasound Report Signed Patient: RASHARD LYMANMR#: [id number] : 1960Acct:[id number] Age/Sex: 63 / MADM Date: 11/19/23 Loc: US Attending Dr: Ajay Archer M.D. Ordering Physician: Ajay Archer M.D. Date of Service: 11/19/23 Procedure(s): US venous doppler LE LT Accession Number(s): [id number] cc: Imer Zambrano D.P.M.; Ajay Archer M.D. [place] [id number] Patient Name: RASHARD LYMAN MRN: [id number] date: 1960 Sex: M Assigned Patient Location: [place] Current Patient Location: [place] Accession/Order Number: [id number] Exam Date: 11/19/2023 16:06 Report Date: 11/19/2023 [...] Venegas M.D. Signed By:11/19/231726 DD/ 23 TD/TT: Payer Specialist: Ajay Archer MD [facility] Final Result documented in this encounter Visit Diagnoses Not on filedocumented in this encounter Care Teams 911 Telecommunicator Relationship Specialty Start Date End Date Jose Baron MD [facility] [place] [phone] PCP - General Internal Medicine 09/07/24 documented as of this encounter
--- OUTSIDE RECORDS SUMMARY | 2024-12-01 14:31 | XMS_ITS | Clinical Summary ---
Author Organization [facility] Address [address] [place] [address] Care Team Providers Care Child Psychologist Name Role Phone Jose Baron MD Primary Care Provider [phone] Social History Tobacco Use Types Packs/Day Years [...] Not on file Insurance BS Care Teams Child Psychologist Relationship Specialty Start Date End Date Jose Baron MD [address] [place] [address] PCP - General Internal Medicine 09/07/24
--- OUTSIDE RECORDS SUMMARY | 2024-12-01 14:31 | XMS_ITS | Patient Health Record ---
Author Organization The [facility] in [place] Address [address] [place] [address] Care Team Providers Care Leakage Tester Name Role Phone William SIGALA, [place] Primary Care Provider Yanna flores Results Component Value Reference Range Notes XR foot RT min 3V Reviewed date:10/26/2024 09:11:22 PM Interpretation: Performing Lab: Notes/Report: Source Facility: [place] [address] XRay Report Signed Patient: RASHARD LYMAN MR#: [id number] : 1960 Acct:[id number] Age/Sex: 64 / M ADM Date: 08/26/24 Loc: [place] 229-[address]: Ajay Vizcaino M.D. Ordering Physician: Chino Zambrano D.P.M. Date of Service: 08/28/24 Procedure(s): XR foot RT min 3V Accession Number(s): [id number] cc: Chino Zambrano D.P.M.; GABRIEL JUAREZ D.O. [place] [address] Patient Name: RASHARD LYMAN MRN: [id number] date: 1960 Sex: M Assigned Patient Location: MS Current Patient Location: MS Accession/Order Number: [id number] Exam Date: 08/28/2024 11:46 Report Date: 08/28/2024 [...] Jr., D.O. 08/28/2024 11:47 AM Dictation Location: [place] [address] Electronically authenticated by: [id number] Y Date: 08/28/2024 11:47 Dictated By: Clayton Cuevas M.D. Signed By: 08/28/24 1150 DD/ 1147 TD/TT: Help Desk Team Leader: [place] [address] XRay Report Signed Patient: MOIRA LYMNA MR#: [id number] : 1960 Acct:[id number] Age/Sex: 64 / M ADM Date: 08/26/24 Loc: MS 229-[address]: Ajay Vizcaino M.D. Ordering Physician: Chino Zambrano D.P.M. Date of Service: 08/28/24 Procedure(s): XR jeanette t RT min 3V Accession Number(s): [id number] cc: Chino Zambrano D.P.M.; GABRIEL JUAREZ D.O. [place] [id number] Patient Name: RASHARD LYMAN MRN: [id number] date: 1960 Sex: M Assigned Patient Location: MS Current Patient Location: MS Accession/Order Numb er: [id number] Exam Date: 08/28/2024 11:46 Report Date: 08/28/2024 [...] Jr., D.O. 08/28/2024 11:47 AM Dictation Location: [place] [address] Electronically authenticated by: [id number] Y Date: 08/28/2024 11:47 Dictated By: Clayton Cuevas M.D. Signed By: 08/28/24 1150 DD/ 1147 TD/TT: Help Desk Team Leader: MAGNESIUM Reviewed date:10/25/2024 01:27:08 PM Interpretation: Performing Lab: Notes/Report: [facility] , Magnesium 2.4 1.8-2.4 mg/dL Performing Lab: see note - [facility] LB Venous Blood Gas Reviewed date:10/25/2024 01:27:08 PM Interpretation: Performing Lab: Notes/Report: [facility] , pH VBG 7.250 7.330-7.430 PCO2 VBG 31.6 40.0-52.0 mmHg Performing Lab: see note - [facility] LB CBC AUTO DIFF Reviewed date:10/25/2024 01:27:08 PM Interpretation: Performing Lab: Notes/Report: [facility] [place] , White Blood Count 12.2 4.0-11.0 10 [...] fL Performing Lab: see note ML - [facility] LB CRP Reviewed date:10/25/2024 01:27:08 PM Interpretation: Performing Lab: Notes/Report: [facility] [place] , C Reactive Protein 24.31 <=0.50 mg/dL Performing Lab: see note ML - [facility] LB MAGNESIUM Reviewed date:10/25/2024 01:27:08 PM Interpretation: Performing Lab: Notes/Report: [facility] , Magnesium 2.2 1.8-2.4 mg/dL Performing Lab: see note ML - [facility] LB PROF 14(COMP METB) Reviewed date:10/25/2024 01:27:08 PM Interpretation: Performing Lab: Notes/Report: [facility] , Sodium 131 136-145 mmol/L Potassium 4.5 [...] Performing Lab: see note ML - [facility] LB Manual Differential Reviewed date:10/25/2024 01:27:08 PM Interpretation: Performing Lab: Notes/Report: [facility] , Segmented Neutrophils % Manual 70.0 43.0-75.0 [...] Performing Lab: see note ML - [facility] LB CBC AUTO DIFF Reviewed date:10/26/2024 09:11:22 PM Interpretation: Performing Lab: Notes/Report: [facility] , White Blood Count 12.5 4.0-11.0 10 [...] Performing Lab: see note ML - [facility] LB CRP Reviewed date:10/26/2024 09:11:22 PM Interpretation: Performing Lab: Notes/Report: [facility] , C Reactive Protein 23.66 <=0.50 mg/dL Performing Lab: see note ML - [facility] LB MAGNESIUM Reviewed date:10/26/2024 09:11:22 PM Interpretation: Performing Lab: Notes/Report: [facility] , Magnesium 2.3 1.8-2.4 mg/dL Performing Lab: see note ML - [facility] LB PROF 14(COMP METB) Reviewed date:10/26/2024 09:11:22 PM Interpretation: Performing Lab: Notes/Report: [facility] , Sodium 135 136-145 mmol/L Potassium 4.7 [...] 0.3 Performing Lab: see note ML - [facility] LB Venous Blood Gas Reviewed date:10/26/2024 09:11:22 PM Interpretation: Performing Lab: Notes/Report: [facility] , pH VBG 7.296 7.330-7.430 PCO2 VBG 30.8 40.0-52.0 mmHg Performing Lab: see note ML - [facility] LB Tissue Culture Reviewed date:10/26/2024 09:11:22 PM [...] FOLLOW O:BETAGB Performing Lab: see note - [facility] LB Gram Stain Result Reviewed date:10/26/2024 09:11:22 PM Interpretation: Performing Lab: Notes/Report: [facility] , Gram Stain Result See Below For Report Gram Stain Result WILL FOLLOW Gram Stain Result Rare white blood cells. Gram Stain Result WILL FOLLOW Gram Stain Result Gram Stain Result WILL FOLLOW Gram Stain Result No organisms seen Gram Stain Result WILL FOLLOW Gram Stain Result Performed at: [facility] Gram Stain Result WILL FOLLOW Gram Stain Result [address] [place], [place] [id number] Gram Stain Result WILL FOLLOW Gram Stain Result Truck Cleaner: Phyllis Brian PhD, Phone: [phone] Gram Stain Result WILL FOLLOW Performing Lab: see note SEE REPORT - Director Of Psychiatry Id information not found for OBX-specific creative services producer legend - [facility] LB Fungus (Mycology) Culture Reviewed date:10/26/2024 09:11:22 PM Interpretation: Performing Lab: Notes/Report: Comment right hallux [facility] , Fungus (Mycology) Culture See Below For Report Fungus (Mycology) Culture Please refer to the following specimen for additional lab results. Fungus (Mycology) Culture SEE: [phone] Fungus (Mycology) Culture Please refer to the following specimen for additional lab results. Performing Lab: see note SEE REPORT - Director Of Psychiatry Id information not found for OBX-specific creative services producer legend - [facility] LB Fungus Stain Reviewed date:10/26/2024 09:11:22 PM Interpretation: Performing Lab: Notes/Report: Comment right hallux [facility] , Fungus Stain See Below For Report Fungus Stain Fungus Stain Please refer to the following specimen for additional lab results. Fungus Stain Fungus Stain SEE: [phone] Fungus S tain Performing Lab: see note SEE REPORT - Director Of Psychiatry Id information not found for OBX-specific creative services producer legend [facility] LB Acid Fast Culture Reviewed date:10/26/2024 09:11:22 PM Interpretation: Performing Lab: Notes/Report: Comment right [facility] Acid Fast Culture See Below For Report Specimen has been received and testing has been initiated. Acid Fast Culture Acid Fast Culture Performed at: [facility] Specimen has been received and testing has been initiated. Acid Fast Culture Acid Fast Culture [address], [place] [id number] Specimen has been received and testing has been initiated. Acid Fast Culture Acid Fast Culture Truck Cleaner: Phyllis Brian PhD, Phone: [phone] Specimen has been received and testing has been initiated. Acid Fast Culture Performing Lab: see note SEE REPORT - Director Of Psychiatry Id information not found for OBX-specific creative services producer legend - [facility] LB Acid Fast Smear Reviewed date:10/26/2024 09:11:22 PM Interpretation: Performing Lab: Notes/Report: Comment right hallux [facility] , Acid Fast Smear See Below For Report Acid Fast Smear Negative Performing Lab: see note [facility] LB AFB Specimen Processing Reviewed date:10/26/2024 09:11:22 PM Interpretation: Performing Lab: Notes/Report: Comment right hallux [facility] , AFB Specimen Processing See Below For Report AFB Specimen Processing AFB Specimen Processing Tissue Grinding AFB Specimen Processing Performing Lab: see note LC - [facility] LB MR ankle LT wo con Reviewed date:10/26/2024 09:11:22 PM Interpretation: Performing Lab: Notes/Report: Source Facility: [place] [address] [place] [address] Magnetic Resonance Report Signed Patient: RASHARD LYMAN MR#: [id number] : 1960 Acct:[id number] Age/Sex: 63 / M ADM Date: 01/30/24 Loc: MRI Attending Dr: Chino Zambrano D.P.M. Ordering Physician: Chino Zambrano D.P.M. Date of Service: 01/30/24 Procedure(s): MR ankle LT wo con Accession Number(s): [id number] cc: Chino Zambrano D.P.M.; GABRIEL JUAREZ D.O. [place] [address] Patient Name: RASHARD LYAMN MRN: [id number] date: 1960 Sex: M Assigned Patient Location: MRI Current Patient Location: MRI Accession/Order Number: [id number] Exam Date: 01/30/2024 13:30 Report Date: 01/31/2024 [...] of the proximal metatarsals. Electronically authenticated by: VALERAINO DUVAL Date: 01/31/2024 17:09 Dictated By: Valeriano Duval M.D. Signed By: 01/31/241710 DD/ 08 TD/TT: Help Desk Team Leader: [place] [address] Magnetic Resonance Report Signed Patient: MOIRA LYMAN MR#: [id number] : 1960 Acct:[id number] Age/Sex: 63 / M ADM Date: 01/30/24 Loc: MRI Attending Dr: Chino Zambrano D.P.M. Ordering Physician: Chino Zambrano D.P.M. Date of Service: 01/30/24 Procedure(s): ank le LT wo con Accession Number(s): [id number] cc: Chino Zambrano D.P.M.; GABRIEL JUAREZ D.O. [place] [id number] Patient Name: RASHARD LYMAN MRN: [id number] date: 1960 Sex: M Assigned Patient Location: MRI Current Patient Location: MRI Accession/Order Numb er: [id number] Exam Date: 13:30 Report Date: 01/31/2024 17:09 At the request of: CHINO ZAMBRANO Procedure: MR ankle LT wo con EXAM: MR ankle LT wo con. HISTORY: Ulcer, infusion nurse vasiliy osteomyelitis. COMPARISON: 01/21/2024 TECHNIQUE: MRI image [...] M.D. Signed By: 01/31/241710 DD/ 08 TD/TT: Help Desk Team Leader: Erythrocyte Sedimentation Ra te Reviewed date:10/26/2024 09:11:22 PM Interpretation: Performing Lab: Notes/Report: [facility] , Erythrocyte Sedimentation Rate >130 <=20 mm/hr Performing Lab: see note ML - [facility] LB PROF CHEM 8 (BAS METB) Reviewed date:10/26/2024 09:11:22 PM Interpretation: Performing Lab: Notes/Report: [facility] , Sodium 130 136-145 mmol/L Potassium [...] 8.5-10.1 mg/dL Performing Lab: see note - [facility] LB CRP Reviewed date:10/26/2024 09:11:22 PM Interpretation: Performing Lab: Notes/Report: [facility] , C Reactive Protein 1.75 <=0.50 mg/dL Performing Lab: see note ML - [facility] LB CBC AUTO DIFF Reviewed date:10/26/2024 09:11:22 PM Interpretation: Performing Lab: Notes/Report: [facility] [place] , White Blood Count 11.3 4.0-11.0 10 [...] 0.00-0.03 10 3/uL Performing Lab: see note - [facility] LB XR ankle LT min 3V Reviewed date:10/26/2024 09:11:22 PM Interpretation: Performing Lab: Notes/Report: Source Facility: [facility] [place] [address] [place] [address] XRay Report Signed Patient: RASHARD LYMAN MR#: [id number] : 1960 Acct:[id number] Age/Sex: 63 / M ADM Date: 01/21/24 Loc: Attending Dr: Chino Zambrano D.P.M. Ordering Physician: Chino Zambrano D.P.M. Date of Service: 01/21/24 Procedure(s): XR ankle LT min 3V Accession Number(s): [id number] cc: Chnio Zambrano D.P.M.; GABRIEL JUAREZ D.O. [place] [address] Patient Name: RASHARD LYMAN MRN: [id number] date: 1960 Sex: M Assigned Patient Location: Current Patient Location: Accession/Order Number: [id number] Exam Date: 01/21/2024 13:21 Report Date: 01/23/2024 06:45 At the request of: CHION ZAMBRANO Procedure: XR ankle LT min 3V [...] M.D. Signed By: 01/23/2448 DD/ 4 TD/TT: Help Desk Team Leader: [place] [address] XRay Report Signed Patient: MOIRA LYMAN MR#: [id number] : 1960 Acct:[id number] Age/Sex: 63 / M ADM Date: 01/21/24 Loc: Attending Dr: Chino Zambrano D.P.M. Ordering Physician: Chino Zambrano D.P.M. Date of Service: 01/21/24 Procedure(s): XR ank le LT min 3V Accession Number(s): [id number] cc: Chino Zambrano D.P.M.; GABRIEL JUAREZ D.O. [place] [address] Patient Name: RASHARD LYMAN MRN: [id number] date: 1960 Sex: M Assigned Patient Location: Current Patient Location: Accession/Order Numb er: [id number] Exam Date: 01/21/2024 13:21 Report Date: 01/23/2024 [...] Dictated By: Deshaun Cadet M.D. Signed By: 01/23/24 0648 DD/ 0645 TD/TT: Help Desk Team Leader: Tissue Culture Reviewed date:10/26/2024 09:11:22 PM Interpretation: Performing Lab: Notes/Report: [facility] , Tissue Culture See Below For Report Tissue Culture Please refer to the following specimen for additional lab results. Tissue Culture SEE: [phone] Tissue Culture Please refer to the following specimen for additional lab results. 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) Active confirmed Problem Contracture of joint of left ankle (disorder) (846532232786148) Contracture, left ankle (M24.572) Active confirmed Problem Hyperlipidemia (61862174) Hyperlipidemia (E78.5) Active confirmed Problem Venous insufficiency of leg (disorder) (342717259) Venous insufficiency (I87.2) Active confirmed Problem Chronic kidney disease (133548766) CKD (chronic kidney disease) (N18.9) Active confirmed Problem Chronic ulcer of foot (010534162) 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) Active confirmed Problem Acquired equinus deformity of left foot (M21.6X2) Active confirmed Problem Delayed healing of surgical wound (finding) (164923931) Delayed surgical wound healing, subsequent encounter (T81.89XD) Active confirmed Problem Delayed healing of surgical wound (finding) (343468838) Delayed surgical wound healing (T81.89XA) Active confirmed Problem Polyneuropathy due to type 2 diabetes mellitus (198429167) Diabetes mellitus with 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 (E11.42) Active confirmed Problem Foot ulcer due to type 2 diabetes mellitus (2113519184236) Diabetes mellitus with foot ulcer due to multiple causes (E11.621) Active confirmed Problem Chronic osteomyelitis of left ankle (0262248175269760 ) Chronic osteomyelitis of left ankle (M86.672) [...] ACCESS PPO PLUS LOCAL PLAN [address] [place] [address] [id number] Arabella Lyman Spouse - patient is the spouse of the insured 8 Medical (General) History Surgical History Surgery Date(Month/Year) Surgical / procedural histor y Carpal Tunnel release, Tonsillectomy, Adenoidectomy History of appendectomy History of cholecystectomy
--- OUTSIDE RECORDS SUMMARY | 2024-12-01 14:31 | XMS_ITS | Clinical Summary ---
Author Organization [employer] Address [id number] [address] [place] [address] Care Team Providers Care Cleaning And Maintenance Worker Name Role Phone Tod Charles DO, Charles [...] (05/28/2019): Added automatically from request for surgery [id number] Cellulitis of foot, left 09/29/2017 Other idiopathic [...] 02/10/2017 Medical Devices Not on file Insurance [facility] Advance Directives * Full Code (Latest Code Status on File) Date Activated Date Inactivated Comments 09/30/2017 12:06 PM 09/30/2017 8:03 PM Care Teams Cleaning And Maintenance Worker Relationship Specialty Start Date End Date Jose Baron Jr., [address] [place], [place] [id number] PCP - General Internal Medicine 02/10/17
--- OUTSIDE RECORDS SUMMARY | 2024-12-01 14:31 | XMS_ITS | Encounter Summary ---
Author Organization [facility] Address [facility] [address] [place] [address] Care Team Providers Care Mat Maker Name Role Phone Tod Charles DO, Charles L Primary Care Provider Encounter Details Date Type Department Care Team (Late st Contact Info) Description 07/14/2020 Documentation [facility] Physician Sign In [address] [place] [id number] Kishore Solorio MD [address] [place] [address] Social History Tobacco Use Types Packs/Day Years [...] documented as of this encounter Care Teams Mat Maker Relationship Specialty Start Date End Date Jose Baron Jr., DO [address] [place] [address] PCP - General Internal Medicine 02/10/17 documented as of this encounter
--- OUTSIDE RECORDS SUMMARY | 2024-12-01 14:31 | XMS_ITS | Clinical Summary ---
Author Organization [facility] Address [address] [place] [address] Care Team Providers Care Ag Equipment Field Service Technician Name Role Phone Unavailable Primary Care Provider [...] Most Recently Relevant to Health Maintenance Insurance [facility]
== END 2024-12-01 14:28 | disposition home or self-care (01) ==
LOC: WC 14:28
PROVIDERS: PCP Internal Medicine; Visit Provider Physician Assistant
DX: E11.621 Type 2 diabetes mellitus with foot ulcer (principal); L97.425 Non-pressure chronic ulcer of left heel and midfoot with muscle involvement without evidence of necrosis; L97.515 Non-pressure chronic ulcer of other part of right foot with muscle involvement without evidence of necrosis
CPT/HCPCS: 11043; 29445

== ENCOUNTER 2024-12-10 15:17 | Outpatient (OUT) | payer BC, SELFPAY ==
--- OUTSIDE RECORDS SUMMARY | 2024-12-10 15:19 | XMS_ITS | Clinical Summary ---
Author Organization [employer] [facility] Address [id number] [address] [place] [address] Care Team Providers Care Data Conversion Analyst Name Role Phone Tod Charles DO, Charles [...] (05/28/2019): Added automatically from request for surgery [id number] Cellulitis of foot, left 09/29/2017 Other idiopathic [...] Last Done Comments Diabetic Ophthalmology Exam 1960 Statin Use: Diabetic 1960 Depression Screening 1972 Adult BMI Follow Up Plan 02/04/1978 Diabetic Foot Exam 02/04/1978 Zoster (Shingles) Vaccine (1 of 2) 02/04/2010 COVID-19 Vaccine (3 - season) 2023, 10/03/2020 Influenza Vaccine 12/28/2024 01/29/2020, 05/27/2015 Adult BMI Screening 02/26/2025 02/27/2024 Tobacco Screening 02/26/2025 02/27/2024 DTaP,Tdap and Td Vaccines (2 - Td or Tdap) 02/10/2027 02/10/2017 Medical Devices Not on file Insurance [employer] Advance Directives * Full Code (Latest Code Status on File) Date Activated Date Inactivated Comments 09/30/2017 12:06 PM 09/30/2017 8:03 PM Care Teams Data Conversion Analyst Relationship Specialty Start Date End Date Jose Baron Jr., [facility] [place] [address] PCP - General Internal Medicine 02/10/17
--- OUTSIDE RECORDS SUMMARY | 2024-12-10 15:20 | XMS_ITS | Patient Health Record ---
Author Organization The [facility] [place] [facility] [place] Address [address] [place] [address] Care Team Providers Care Emergency Care Tech Name Role Phone William SIGALA, [place] Primary Care Provider Yanna flores Results Component Value Reference Range Notes CBC AUTO DIFF Reviewed date:10/26/2024 09:11:22 PM Interpretation: Performing Lab: Notes/Report: [facility] , White Blood Count 11.3 4.0-11.0 [...] Performing Lab: see note ML - The [facility] LB Erythrocyte Sedimentation Ra te Reviewed date:10/26/2024 09:11:22 PM Interpretation: Performing Lab: Notes/Report: [facility] , Erythrocyte Sedimentation Rate >130 <=20 mm/hr Performing Lab: see note ML - The [facility] MR ankle LT wo con Reviewed date:10/26/2024 09:11:22 PM Interpretation: Performing Lab: Notes/Report: Source Facility: [place] [address] Magnetic Resonance Report Signed Patient: RASHARD LYMAN MR#: [id number] : 1960 Acct:[id number] Age/Sex: 63 / M ADM Date: 01/30/24 Loc: MRI Attending Dr: Chino Zambrano D.P.M. Ordering Physician: Chino Zambrano D.P.M. Date of Service: 01/30/24 Procedure(s): MR ankle LT wo con Accession Number(s): [id number] cc: Chino Zambrano D.P.M.; GABRIEL JUAREZ D.O. [place] [address] Patient Name: RASHARD LYMAN MRN: [id number] date: 1960 Sex: M Assigned Patient Location: MRI Current Patient Location: MRI Accession/Order Number: [id number] Exam Date: 01/30/2024 13:30 Report Date: 01/31/2024 [...] M.D. Signed By: 01/31/241710 DD/ 08 TD/TT: [employer]: [place] [address] Magnetic Resonance Report Signed Patient: MOIRA LYMAN MR#: [id number] : 1960 Acct:[id number] Age/Sex: 63 / M ADM Date: 01/30/24 Loc: MRI Attending Dr: Chino Zambrano D.P.M. Ordering Physician: Chino Zambrano D.P.M. Date of Service: 01/30/24 Procedure(s): ank le LT wo con Accession Number(s): [id number] cc: Chino Zambrano D.P.M.; GABRIEL JUAREZ D.O. [place] [id number] Patient Name: RASHARD LYMAN MRN: [id number] date: 1960 Sex: M Assigned Patient Location: MRI Current Patient Location: MRI Accession/Order Numb er: [id number] Exam Date: 13:30 Report Date: 01/31/2024 17:09 At the request of: CHINO ZAMBRANO Procedure: MR ankle LT wo con EXAM: MR ankle LT wo con. HISTORY: Ulcer, chrome plater vasiliy osteomyelitis. COMPARISON: 01/21/2024 TECHNIQUE: MRI image [...] Signed By: 01/31/24 1711 DD/ 1709 TD/TT: [employer]: AFB Specimen Processing Reviewed date:10/26/2024 09:11:22 PM Interpretation: Performing Lab: Notes/Report: Comment right hallux [facility] , AFB Specimen Processing See Below For Report AFB Specimen Processing AFB Specimen Processing Tissue Grinding AFB Specimen Processing Performing Lab: see note LC - [facility] LB Acid Fast Smear Reviewed date:10/26/2024 09:11:22 PM Interpretation: Performing Lab: Notes/Report: Comment right hallux [facility] , Acid Fast Smear See Below For Report Acid Fast Smear Negative Performing Lab: see note LC - [facility] LB Acid Fast Culture Reviewed date:10/26/2024 09:11:22 PM Interpretation: Performing Lab: Notes/Report: Comment [facility] , Acid Fast Culture See Below For Report Acid Fast Culture Specimen has been received and testing has been initiated. Acid Fast Culture Performed at: [facility] Acid Fast Culture Specimen has been received and testing has been initiated. Acid Fast Culture [address], [place] [id number] Acid Fast Culture Specimen has been received and testing has been initiated. Acid Fast Culture Survey Operations Director: Phyllis Brian PhD, Phone: [phone] Acid Fast Culture Specimen has been received and testing has been initiated. Performing Lab: see note - [facility] LB SEE REPORT - Geography Instructor Id information not found for OBX-specific commercial producer legend Fungus Stain Reviewed date:10/26/2024 09:11:22 PM Interpretation: Performing Lab: Notes/Report: Comment right hallux [facility] , Fungus Stain See Below For Report Fungus Stain Fungus Stain Please refer to the following specimen for additional lab results. Fungus Stain Fungus Stain SEE: [phone] Fungus Stain Performing Lab: see note - [facility] LB SEE REPORT - Geography Instructor Id information not found for OBX-specific commercial producer legend Fungus (Mycology) Culture Reviewed date:10/26/2024 09:11:22 PM Interpretation: Performing Lab: Notes/Report: Comment [facility] , Fungus (Mycology) Culture See Below For Report Fungus (Mycology) Culture Please refer to the following specimen for additional lab results. Fungus (Mycology) Culture SEE: [phone] Fungus (Mycology) Culture Please refer to the following specimen for additional lab results. Performing Lab: see note - [facility] LB SEE REPORT - Geography Instructor Id information not found for OBX-specific commercial producer legend Gram Stain Result Reviewed date:10/26/2024 09:11:22 PM Interpretation: Performing Lab: Notes/Report: [facility] , Gram Stain Result See Below For Report Gram Stain Result WILL FOLLOW Gram Stain Result Rare white blood cells. Gram Stain Result WILL FOLLOW Gram Stain Result Gram Stain Result WILL FOLLOW Gram Stain Result No organisms seen Gram Stain Result WILL FOLLOW Gram Stain Result Performed at: [facility] Gram Stain Result WILL FOLLOW Gram Stain Result [address], [place] [id number] Gram Stain Result WILL FOLLOW Gram Stain Result Survey Operations Director: Phyllis Brian PhD, Phone: [phone] Gram Stain Result WILL FOLLOW Performing Lab: see note LC - [facility] LB SEE REPORT - Geography Instructor Id information not found for OBX-specific commercial producer legend Tissue Culture Reviewed date:10/26/2024 09:11:22 [...] for additional lab results. Tissue Culture SEE: [phone] Tissue Culture Please refer to the following specimen for additional lab results. Performing Lab: see note LC - [facility] LB SEE REPORT - Geography Instructor Id information not found for OBX-specific commercial producer legend XR foot RT min 3V Reviewed date:10/26/2024 09:11:22 PM Interpretation: Performing Lab: Notes/Report: Source Facility: [place] [address] XRay Report Signed Patient: RASHARD LYMAN MR#: [id number] : 1960 Acct:[id number] Age/Sex: 64 / M ADM Date: 08/26/24 Loc: [place] 229-[address]: Ajay Vizcaino M.D. Ordering Physician: Chino Zambrano D.P.M. Date of Service: 08/28/24 Procedure(s): XR foot RT min 3V Accession Number(s): [id number] cc: Chino Zambrano D.P.M.; GABRIEL JUAREZ D.O. [place] [address] Patient Name: RASHARD LYMAN MRN: [id number] date: 1960 Sex: M Assigned Patient Location: [place] Current Patient Location: [place] Accession/Order Number: [id number] Exam Date: 08/28/2024 11:46 Report Date: 08/28/2024 [...] Jr., D.O. 08/28/2024 11:47 AM Dictation Location: [place] [address] Electronically authenticated by: [id number] Y Date: 08/28/2024 11:47 Dictated By: Clayton Cuevas M.D. Signed By: 08/28/24 1150 DD/ 1147 TD/TT: [employer]: [address] [address] XRay Report Signed Patient: MOIRA LYMAN MR#: [id number] : 1960 Acct:[id number] Age/Sex: 64 / M ADM Date: 08/26/24 Loc: [place] 229-[address]: Ajay Vizcaino M.D. Ordering Physician: Chino Zambrano D.P.M. Date of Service: 08/28/24 Procedure(s): XR jeanette t RT min 3V Accession Number(s): [id number] cc: Chino Zambrano D.P.M.; GABRIEL JUAREZ D.O. [address] [address] Patient Name: RASHARD LYMAN MRN: [id number] date: 1960 Sex: M Assigned Patient Location: MS Current Patient Location: MS Accession/Order Numb er: [id number] Exam Date: 08/28/2024 11:46 Report Date: 08/28/2024 [...] Jr., D.O. 08/28/2024 11:47 AM Dictation Location: [place] [address] Electronically authenticated by: [id number] Y Date: 08/28/2024 11:47 Dictated By: Clayton Cuevas M.D. Signed By: 08/28/24 115 DD/ 46 TD/TT: [employer]: ROBBIN Galvez date:10/25/2024 01:27:08 PM Interpretation: Performing Lab: Notes/Report: [facility] , Magnesium 2.4 1.8-2.4 mg/dL Performing Lab: see note ML - [facility] LB Venous Blood Gas Reviewed date:10/25/2024 01:27:08 PM Interpretation: Performing Lab: Notes/Report: [facility] , pH VBG 7.250 7.330-7.430 PCO2 VBG 31.6 40.0-52.0 mmHg Performing Lab: see note ML - [facility] LB CBC AUTO DIFF Reviewed date:10/25/2024 01:27:08 PM Interpretation: Performing Lab: Notes/Report: [facility] , White Blood Count 12.2 4.0-11.0 [...] fL Performing Lab: see note ML - [facility] LB CRP Reviewed date:10/25/2024 01:27:08 PM Interpretation: Performing Lab: Notes/Report: [facility] , C Reactive Protein 24.31 <=0.50 mg/dL Performing Lab: see note ML - [facility] LB MAGNESIUM Reviewed date:10/25/2024 01:27:08 PM Interpretation: Performing Lab: Notes/Report: [facility] , Magnesium 2.2 1.8-2.4 mg/dL Performing Lab: see note ML - [facility] LB PROF 14(COMP METB) Reviewed date:10/25/2024 01:27:08 PM Interpretation: Performing Lab: Notes/Report: [facility] , Sodium 131 136-145 mmol/L Potassium [...] Globulin Ratio 0.3 Performing Lab: see note - [facility] LB Manual Differential Reviewed date:10/25/2024 01:27:08 PM Interpretation: Performing Lab: Notes/Report: [facility] , Segmented Neutrophils % Manual 70.0 [...] 10 3/uL Performing Lab: see note - [facility] LB CBC AUTO DIFF Reviewed date:10/26/2024 09:11:22 PM Interpretation: Performing Lab: Notes/Report: [facility] , White Blood Count 12.5 4.0-11.0 [...] Performing Lab: see note ML - [facility] LB CRP Reviewed date:10/26/2024 09:11:22 PM Interpretation: Performing Lab: Notes/Report: [facility] , C Reactive Protein 23.66 <=0.50 mg/dL Performing Lab: see note ML - [facility] LB MAGNESIUM Reviewed date:10/26/2024 09:11:22 PM Interpretation: Performing Lab: Notes/Report: [facility] , Magnesium 2.3 1.8-2.4 mg/dL Performing Lab: see note - [facility] LB PROF 14(COMP METB) Reviewed date:10/26/2024 09:11:22 PM Interpretation: Performing Lab: Notes/Report: [facility] , Sodium 135 136-145 mmol/L Potassium [...] 0.3 Performing Lab: see note ML - [facility] LB Venous Blood Gas Reviewed date:10/26/2024 09:11:22 PM Interpretation: Performing Lab: Notes/Report: [facility] , pH VBG 7.296 7.330-7.430 PCO2 VBG 30.8 40.0-52.0 mmHg Performing Lab: see note - [facility] LB PROF CHEM 8 (BAS METB) Reviewed date:10/26/2024 09:11:22 PM Interpretation: Performing Lab: Notes/Report: [facility] , Sodium 130 136-145 mmol/L Potassium [...] Performing Lab: see note ML - [facility] LB CRP Reviewed date:10/26/2024 09:11:22 PM Interpretation: Performing Lab: Notes/Report: [facility] , C Reactive Protein 1.75 <=0.50 mg/dL Performing Lab: see note - [facility] LB XR ankle LT min 3V Reviewed date:10/26/2024 09:11:22 PM Interpretation: Performing Lab: Notes/Report: Source Facility: [place] [address] [place] [address] XRay Report Signed Patient: RASHARD LYMAN MR#: [id number] : 1960 Acct:[id number] Age/Sex: 63 / M ADM Date: 01/21/24 Loc: Attending Dr: Chino Zambrano D.P.M. Ordering Physician: Chino Zambrano D.P.M. Date of Service: 01/21/24 Procedure(s): XR ankle LT min 3V Accession Number(s): [id number] cc: Chino Zambrano D.P.M.; GABRIEL JUAREZ D.O. The [place] [address] Patient Name: RASHARD LYMAN MRN: [id number] date: 1960 Sex: M Assigned Patient Location: Current Patient Location: Accession/Order Number: [id number] Exam Date: 01/21/2024 13:21 Report Date: 01/23/2024 [...] M.D. Signed By: 01/23/24647 DD/ 4 TD/TT: [employer]: [place] [address] XRay Report Signed Patient: MOIRA LYMAN MR#: [id number] : 1960 Acct:[id number] Age/Sex: 63 / M ADM Date: 01/21/24 Loc: Attending Dr: Chino Zambrano D.P.M. Ordering Physician: Chino Zambrano D.P.M. Date of Service: 01/21/24 Procedure(s): XR ank le LT min 3V Accession Number(s): [id number] cc: Chino Zambrano D.P.M.; GABRIEL JUAREZ D.O. [place] [id number] Patient Name: RASHARD LYMAN MRN: [id number] date: 1960 Sex: M Assigned Patient Location: Current Patient Location: Accession/Order Numb er: [id number] Exam Date: 01/21/2024 13:21 Report Date: 01/23/2024 [...] Cadet M.D. 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) Active confirmed Problem Contracture of joint of left ankle (disorder) (465788333309913) Contracture, left ankle (M24.572) Active confirmed Problem Hyperlipidemia (97927439) Hyperlipidemia (E78.5) Active confirmed Problem Venous insufficiency of leg (disorder) (445737912) Venous insufficiency (I87.2) Active confirmed Problem Chronic kidney disease (000471976) CKD (chronic kidney disease) (N18.9) Active confirmed Problem Chronic ulcer of foot (530321769) 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) Active confirmed Problem Acquired equinus deformity of left foot (M21.6X2) Active confirmed Problem Delayed healing of surgical wound (finding) (109453864) Delayed surgical wound healing, subsequent encounter (T81.89XD) Active confirmed Problem Delayed healing of surgical wound (finding) (291723834) Delayed surgical wound healing (T81.89XA) Active confirmed Problem Polyneuropathy due to type 2 diabetes mellitus (708396769) Diabetes mellitus with 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 (E11.42) Active confirmed Problem Foot ulcer due to type 2 diabetes mellitus (9036215412281) Diabetes mellitus with foot ulcer due to multiple causes (E11.621) Active confirmed Problem 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) Active confirmed Problem Chronic osteomyelitis of left ankle (5668863200069638 ) Chronic osteomyelitis of left ankle (M86.672) Active confirmed Problem Skin ulcer of right foot including toes, with necrosis of muscle (L97.513) Active confirmed Problem Non-pressure chronic ulcer of [...] ACCESS PPO PLUS LOCAL PLAN [address] [place] [address] [id number] Arabella Lyman Spouse - patient is the spouse of the insured 8 Medical (General) History Surgical History Surgery Date(Month/Year) Surgical / procedural histor y Carpal Tunnel release, Tonsillectomy, Adenoidectomy History of appendectomy History of cholecystectomy
--- OUTSIDE RECORDS SUMMARY | 2024-12-10 15:20 | XMS_ITS | Clinical Summary ---
Author Organization [facility] Address [address] [place] [address] Care Team Providers Care Cytotechnologist/Histotechnologist Name Role Phone Jose Baron MD Primary Care Provider [phone] Social History Tobacco Use Types Packs/Day Years [...] Not on file Insurance BS Care Teams Cytotechnologist/Histotechnologist Relationship Specialty Start Date End Date Jose Baron MD [address] [place] [address] PCP - General Internal Medicine 09/07/24
--- OUTSIDE RECORDS SUMMARY | 2024-12-10 15:20 | XMS_ITS | Encounter Summary ---
Author Organization [facility] Address [address] [place] [address] Care Team Providers Care Energy Conservation Director Name Role Phone Jose Baron MD Primary Care Provider [phone] Encounter Details Date Type Department Care Team (Late st Contact Info) Description 11/19/2023 Clinisync Result Encounter [facility] External Department Unsolicited Ajay Archer MD [address] [place] [id number] Social History Tobacco Use Types Packs/Day Years [...] EDT Narrative 11/19/2023 5:27 PM EDT The [address] [address] Ultrasound Report Signed Patient: RASHARD LYMAN MR#: [id number] : 1960 Acct:[id number] Age/Sex: 63 / M ADM Date: 11/19/23 Loc: US Attending Dr: Ajay Archer M.D. Ordering Physician: Ajay Archer M.D. Date of Service: 11/19/23 Procedure(s): US venous doppler LE LT Accession Number(s): [id number] cc: Imer Zambrano D.P.M.; Ajay Archer M.D. [address] [address] Patient Name: RASHARD LYMAN MRN: [id number] date: 1960 Sex: M Assigned Patient Location: US Current Patient Location: US Accession/Order Number: [id number] Exam Date: 11/19/2023 16:06 Report Date: 11/19/2023 [...] M.D. Signed By: 11/19/231726 DD/ 23 TD/TT: Nail Tech: Procedure Note Radiology, Radiologist, MD - 11/19/[address] [address] Ultrasound Report Signed Patient: RASHARD LYMANMR#: [id number] : 1960Acct:[id number] Age/Sex: 63 / MADM Date: 11/19/23 Loc: US Attending Dr: Ajay Archer M.D. Ordering Physician: Ajay Archer M.D. Date of Service: 11/19/23 Procedure(s): US venous doppler LE LT Accession Number(s): [id number] cc: Imer Zambrano D.P.M.; Ajay Archer M.D. [place] [id number] Patient Name: RASHARD LYMAN MRN: [id number] date: 1960 Sex: M Assigned Patient Location: US Current Patient Location: US Accession/Order Number: [id number] Exam Date: 11/19/2023 16:06 Report Date: 11/19/2023 [...] Venegas M.D. Signed By:11/19/231726 DD/ 23 TD/TT: Nail Tech: Ajay Archer MD [facility] Final Result documented in this encounter Visit Diagnoses Not on filedocumented in this encounter Care Teams Energy Conservation Director Relationship Specialty Start Date End Date Jose Baron MD [facility] [place] [id number] PCP - General Internal Medicine 09/07/24 documented as of this encounter
--- OUTSIDE RECORDS SUMMARY | 2024-12-10 15:20 | XMS_ITS | Clinical Summary ---
Author Organization [facility] Address [address] [place] [address] Care Team Providers Care Process Improvement Manager Name Role Phone Unavailable Primary Care [...] Most Recently Relevant to Health Maintenance Insurance [facility]
--- OUTSIDE RECORDS SUMMARY | 2024-12-10 15:46 | XMS_ITS | CCD ---
Author Organization [facility] Care Team Providers Care Crime Scene Investigator Name Role Phone Jose Juarez Primary Care Provider [phone] Eugene Morel Admit Provider Eugene Morel Attending Provider [phone] Gordon Ewing Attending Provider [phone] Patria Cheung Attending Provider [phone] SAVANNAH REYNOLDS Admitting Unavailable SAVANNAH REYNOLDS Attending Unavailable JOSE JUAREZ Primary Care Unavailable JOSE JUAREZ Referring Unavailable OK Procedure Practitioner Unavailab TRISHA Ozuna Surgeon Unavailable NIMA WYNNE Surgeon Unavailable OK Procedure Practitioner Unavailab Jose Andres Primary Care Provider [phone] Eugene Morel Admit Provider [phone] Gordon Ewing Attending Provider Patria Cheung Attending Provider Latrice Lehman Attending Provider [phone] PROVIDER, UNKNOWN Attending Unavailable PROVIDER, UNKNOWN [...] Attending Unavailable CHINO ELLIOTT Admitting Unavailable NEFCY, PETER Consulting Unavailable VALONE, DR RIOS Primary Care Unavailable VALONE, DR RIOS Consulting Unavailable VALONE, DR RIOS Admitting Unavailable VALONE, DR RIOS Attending Unavailable VALONE, DR RIOS Primary Care Unavailable VALONE, DR RIOS Admitting Unavailable VALONE, DR RIOS Attending Unavailable VALONE, DR RIOS Consulting Unavailable HIGHLANDER, CHINO Hopson Consulting Unavailable WILHEML, NATHANAEL Consulting Unavailable FAWWAD, MOSES H Admitting [...] Consulting Unavailable HIGHLANDER, CHINO Hopson Consulting Unavailable HIGHLHERNESTO, CHINO Hopson Admitting Unavailable HIGHLHERNESTO, CHINO Hopson Consulting Unavailable EARL, CHINO Hopson Attending Unavailable VALONE, DR RIOS Primary Care Unavailable NATHANAEL WILHELM Consulting Unavailable SU ., DR CARLOS EDUARDO Carmona Admitting Unavailable SU ., DR CARLOS EDUARDO Carmona Attending Unavailable HERNANDEZ ., MARGIE Consulting Unavailable VALONE, DR RIOS Primary Care Unavailable SU ., DR CARLOS EDUARDO Caromna Attending Unavailable SU ., DR CARLOS EDUARDO Carmona Admitting Unavailable HERNANDEZ ., MARGIE Consulting Unavailable VALONE, DR RIOS Primary Care Unavailable SU ., DR CARLOS EDUARDO Carmona Admitting Unavailable SU ., DR CARLOS EDUARDO Carmona Attending Unavailable VALONE, DR RIOS Primary Care Unavailable HIGHLHERNESTO, CHNIO Hopson Attending Unavailable VALONE, DR RIOS Primary Care Unavailable EARL, CHINO Hopson Admitting Unavailable EARL, CHINO Hopson Referring Unavailable JUANCARLOS LEHMAN Primary Care Unavailable JUANCARLOS LEHMAN Primary Care Unavailable VALONE, JOSE L Referring Unavailable VALONE JR, JOSE L Referring Unavailable VALONE JR, JOSE Anmol Primary Care Unavailable VALONE JR, JOSE Anmol Referring Unavailable VALONE JR, JOSE Anmol Primary Care Unavailable VALONE JR, JOSE Anmol Referring Unavailable VALONE JR, JOSE Anmol Primary Care Unavailable VALONE JR, JOSE L Referring Unavailable VALONE JR, JOSE L Primary Care Unavailable VALONE JR, JOSE L Referring Unavailable VALONE JR, JOSE Anmol Primary Care Unavailable VALONE JR, JOSE L Referring Unavailable VALONE JR, JOSE L Primary Care Unavailable VALONE JR, JOSE L Referring Unavailable VALONE JR, JOSE L Primary Care Unavailable HIGHLANDERCHINO Referring Unavailable VALONE JR, JOSE L Primary Care Unavailable VALONE JR, JOSE L Referring Unavailable VALONE JR, JOSE L Primary Care Unavailable VALONE JR, JOSE L Referring Unavailable VALONE JR, JOSE L Primary Care Unavailable VALONE JR, JOSE L Referring Unavailable VALONE JR, JOSE L Primary Care Unavailable Valone Jr., Jose MAE Primary Care Provider Earl DPMChino Attending Provider [phone] Earl DPJuma, Chino Hopson Attending Provider Chino Elliott Admitting Unavailable Chino Elliott Attending Unavailable Earl, Chino Hopson Attending Unavailable Chino Elliott Admitting Unavailable Unavailable Unavailable Unavailable Allergies Allergy Classification Reported Allergen(s) Allergy Type Date of Onset Reaction(s) Facility exenatide (1 source) exenatide Drug Allergy 07-14-19 21 [facility] Repository NSAIDs (5 sources) celecoxib; Translations: [Celebrex] Drug Allergy 07-14-19 21 Difficulty Breathing [facility] Repository Phenolphthalein (1 source) Phenolphthalein Drug Allergy 07-14-19 21 [facility] Repository (7 sources) celecoxib; Translations: [celecoxib] Drug Allergy 07-21-19 17 Difficulty Breathing, bad for kidney, Difficulty Breathing, bad for kidney [facility] Repository (6 sources) Aspirin; Translations: [ASPIRIN] Drug Allergy 07-21-19 17 bad for kidney [facility] Repository (3 sources) Amoxicillin Drug Allergy 07-09-19 20 [facility] Repository (1 source) celecoxib Drug Allergy 07-09-19 20 [facility] Repository (1 source) exenatide Drug Allergy 07-09-19 20 [facility] Repository (1 source) Phenolphthalein Drug Allergy 07-09-19 20 [facility] Repository (3 sources) exenatide; Translations: [EXENATIDE] Drug Allergy 07-21-19 17 [facility] Repository (3 sources) HYLAN G-F 20; Translations: [HYLAN G-F 20] Propensity to adverse reactions to drug (disorder) 07-21-19 17 [facility] Repository (2 sources) exenatide Drug Allergy 09-14-19 [facility] (2 sources) OXcarbazepine Drug Allergy 09-14-19 23 [facility] Medications Current Medications Medication Drug Class(es) Dates Sig (Normalized) Sig (Original) Albuterol Sulfate (8 sources) beta2-Adrenergic Agonist Start: 12-31-2018 take 1 [...] 2019 2:10pm apremilast 30 mg oral tablet (6 sources) Start: 08-19-2020 take 1 tablet by mouth once daily atorvastatin 40 mg oral tablet (5 sources) HMG-CoA Reductase Inhibitor Start: 08-23-2020 take 1 tablet by mouth once daily in the evening B Complex And C 20-Folic Acid (Renal Caps) 1 mg Capsule (1 source) Start: 08-18-2020 take 1 capsule by mouth once daily B Complex With C 20-Folic Acid (Renal Caps) 1 mg Capsule (5 sources) Start: 08-18-2020 take 1 capsule by mouth once daily B Complex With C 20-Folic Acid (Renal Caps) 1 mg Capsule Active 1 CAP PO Daily August 18, 2020 9:20pm Start: 08-18-2020 take 1 capsule by mo [facility] once daily B Complex With C [...] hydrochloride 150 mg extended release oral tablet (8 sources) Aminoketone Start: 09-30-2017 take 150 mg by mouth once daily Bupropion Hcl Active 150 MG Oral Daily September 30, 2017 6:19pm Start: 09-30-2017 take 1 tablet by regan th every twelve hours in the morning buPROPion SR (WELLBUTRIN SR) 150 mg 12 hr tablet Take 1 tablet (150 mg total) by mouth in the morning. Active colesevelam hydrochloride 625 mg oral tablet (8 sources) Bile Acid Sequestrant Start: 09-30-2017 take [...] by mo uth twice daily at mealtime colesevelam (WEL CHOL) 625 mg tablet Take 650 mg by mouth Medrol Dose Pack scheduling ONLY. Active docusate sodium 100 mg oral tablet (8 sources) Start: 12-31-2018 take 100 mg by mouth twice daily Docusate Sodium Active 100 MG Oral Twice daily December 31, 2018 3:14pm Start: 09-30-2017 End: 11-08-2017 take 1 capsule by mouth twice daily Docusate Sodium (Colace) 100 mg Capsule Discontinued 100 MG PO Twice daily September 30, 2017 12:00am November 08, 2017 1:27pm DULoxetine 60 mg delayed release oral capsule (13 sources) Serotonin and Norepinephrine Reuptake Inhibitor Start: 08-18-2020 take 1 capsule by mouth once daily Start: 09-30-2017 End: 12-31-2018 take 1 capsule by mouth at bedtime Duloxetine 30 mg capsule,delayed release(DR/EC) Discontinued 30 MG PO Bedtime September 30, 2017 12:00am December 31, 2018 3:08pm esomeprazole 40 mg delayed release oral capsule (6 sources) Proton Pump Inhibitor Start: 08-18-2020 take 1 capsule by mouth once daily famotidine 40 mg oral tablet (9 sources) Histamine-2 Receptor Antagonist Start: 08-18-2020 take 1 tablet by mouth twice daily Start: 09-30-2017 take 20 mg by mouth twice sohan y Famotidine Active 20 MG Oral Twice daily September 30, 2017 6:23pm ferrous sulfate 325 mg oral tablet (5 sources) Start: 08-25-2020 folic acid 1 mg oral tablet (2 sources) Start: 12-31-2018 take 1 mg by mouth once daily Folic Acid Active 1 MG Oral Daily December 31, 2018 3:14pm ALL DAYS EXCEPT SATURDAY furosemide 40 mg oral tablet (7 sources) Loop Diuretic Start: 08-25-2020 take 1 tablet by mouth twice daily Start: 01-05-2019 take 40 mg by mouth once daily Furosemide Active 40 MG Oral Daily January 05, 2019 2:10pm hydrALAZINE hydrochloride 100 mg oral tablet (6 sources) Arteriolar Vasodilator Start: 08-18-2020 take 1 tablet by mouth three times daily 3 ml insulin degludec 100 unt/ml pen injector (20 sources) Insulin Analog Start: 11-08-2017 Start: 11-08-2017 inject 100 [IU] by s ubcutaneous injection once daily Insulin Degludec Active 100 UNIT Subcutaneous Daily November 08, 2017 1:37pm Start: 10-04-2017 End: 11-08-2017 Insulin Degludec (Tresiba Flextouch U-100 Insulin) 100 unit/mL (3 mL) insulin pen Discontinued 70 UNIT SUBCUT Daily 3 October 04, 2017 12:00am November 08, 2017 1:37pm Start: 09-30-2017 End: 10-04-2017 inject 200 [IU] by subcutaneous injection once daily Insulin Degludec (Tresiba Flextouch U-200) 200 unit/mL (3 mL) insulin pen Discontinued 200 UNIT SUBCUT Daily September 30, 2017 12:00am October 04, 2017 12:34pm insulin degludec (TRESIBA FLEXTOUCH U-200) 200 unit/mL (3 mL) insulin pen Inject 100 Units under the skin in the morning. Active 3 ml insulin glargine 100 un t/ml / lixisenatide 0.033 mg/ml pen injector (15 sources) Insulin Analog Start: 12-31-2018 Start: 09-30-2017 End: 10-04-2017 Insulin Glargine-Lixisenatid e (Soliqua 100/33) 100 unit-33 mcg/mL Insulin Pen Discontinued 70 UNIT SUBCUT Daily September 30, 2017 12:00am October 04, 2017 1:07pm inject 60 [IU] [...] Active magnesium oxide 400 mg oral tablet (6 sources) Start: 08-18-2020 take 1 tablet by mouth once daily meclizine hydrochloride 25 mg chewable tablet (9 sources) Antiemetic Start: 09-30-2017 take 25 mg by mouth once daily Meclizine Active 25 MG Oral Daily September 30, 2017 6:30pm Start: 09-30-2017 take 1 tablet by regan th every eight hours as needed for dizziness take 1 tablet by regan th every eight hours Meclizine HCl 25 MG 1 tablet as needed Orally three times a day Active methylPREDNISolone 4 mg oral tablet (5 sources) Corticosteroid Start: 08-23-2020 take 1 tablet by mouth once metoprolol tartrate 25 mg oral tablet (1 [...] Oral Active montelukast 10 mg oral tablet (9 sources) Leukotriene Receptor Antagonist Start: 09-30-2017 take 1 tablet by mouth at bedtime ondansetron 4 mg oral tablet (1 source) Serotonin-3 Receptor Antagonist take 1 tablet by mouth every eight hours as needed Ondansetron HCl 4 MG TAKE 1 TABLET BY MOUTH EVERY 8 HOURS NEEDED Oral for 3 Active OXcarbazepine 300 mg oral tablet (9 sources) Anti-epileptic Agent Start: 09-30-2017 take 1 tablet by mouth at bedtime POLYETHYLENE GLYCOL 3350 (1 source) Osmotic Laxative Miralax 17 gram s orally at hour of sleep Active potassium chloride 10 meq extended release oral tablet (11 sources) Start: 08-25-2020 Start: 09-30-2017 End: 12-31-2018 Potassium Chloride 20 mEq Ta blet Extended Release Discontinued 20 MEQ PO As Directed September 30, 2017 12:00am December 31, 2018 3:13pm pregabalin 75 mg oral capsule (1 source) Start: 04-16-2019 take 1 capsule by mouth three times daily pregabalin (LYRICA) 75 mg capsule Indications: Diabetic peripheral neuropathy (CMS-HCC) Take 1 capsule (75 mg total) by mouth 3 (three) times a day. 90 capsule 1 04/16/2019 Active Renal Softgels (1 source) Renal Softgels Active sevelamer carbonate 800 mg oral tablet (13 sources) Phosphate Binder Start: 08-25-2020 take 1 tablet by mouth once at mealtime Start: 09-30-2017 take 400 mg by mouth once sohan y Sevelamer Hcl Active 400 MG Oral Daily September 30, 2017 6:35pm Start: 09-30-2017 End: 08-19-2020 Sevelamer Hcl (Renagel) 800 mg Tablet Discontinued 400 MG PO Daily September 30, 2017 12:00am August 19, 2020 11:03am take 1 tablet by regan th in the morning sevelamer (RENAGEL) 400 mg tablet Take 1 tablet (400 mg total) by mouth in the morning. Active tamsulosin hydrochloride 0.4 mg oral capsule (15 sources) alpha-Adrenergic Osman Start: 12-31-2018 take 1 capsule by mouth once daily Start: 09-30-2017 End: 11-08-2017 take 1 capsule by mouth once daily Tamsulosin (Flomax) 0.4 mg Capsule,Extended Release 24hr Discontinued 0.4 MG PO Daily September 30, 2017 12:00am November 08, 2017 1:33pm traZODone hydrochloride 50 mg oral tablet (9 sources) Serotonin Reuptake Inhibitor Start: 09-30-2017 take 1 tablet by mouth at bedtime triamcinolone acetonide 1 mg/ml topical cream (8 sources) Corticosteroid Start: 12-31-2018 Triamcinolone Acetonide Active 1 APPLIC TOPICAL Twice daily December 31, 2018 3:14pm Start: 12-31-2018 Completed/Discontinued Medications Medication Drug Class(es) Dates Sig (Normalized) Sig (Original) acetaminophen 325 mg / HYDROcodone bitartrate 5 mg oral tablet (14 sources) Opioid Agonist Start: 12-31-2018 End: 01-05-2019 take 1 tablet by mouth every six hours as needed for pain Hydrocodone-Acetami nophen 5-325 mg tablet Discontinued 1 TAB PO Q6H as needed for Pain December 31, 2018 12:00am January 05, 2019 2:16pm Start: 09-30-2017 End: 11-12-2017 take 1 tablet by mouth every four hours as needed for pain Hydrocodone-Acetaminophen 5-325 mg table t Discontinued 5 MG PO Q4H as needed for Pain September 30, 2017 12:00am November 12, 2017 11:43am acetaminophen 325 mg / oxyCODONE hydrochloride 5 mg oral tablet (7 sources) Opioid Agonist Start: 11-12-2017 End: 12-31-2018 take 1 tablet by mouth every six hours as needed for pain Oxycodone-Acetaminophen (Percocet) 5-325 mg tablet Discontinued 1 TAB PO Q6H as needed for pain (scale score 7-10) 20 10November 12, 2017 December 31, 2018 3:12pm take 1 tablet by regan th every eight hours as needed Percocet 5-325 MG 1 tablet as needed Orally EVERY 8 HRS NEEDED Active amoxicillin 500 mg / clavulanate 125 mg oral tablet (12 sources) Penicillin-class Antibacterial Start: 11-12-2017 End: 11-26-2017 take 1 tablet by mouth every eight hours Amoxicillin-Pot Clavulanate (Augmentin) 500-125 mg tablet Discontinued 1 TAB PO Q8H 42 November 12, 2017 12:00am November 25, 2017 12:00am November 26, 2017 12:01am Start: 10-04-2017 End: 11-08-2017 take 1 tablet by mouth twice daily Amoxicillin-Pot Clavulanate (Augmentin) 500-125 mg tablet Discontinued 1 TAB PO Twice daily October 04, 2017 12:00am November 08, 2017 1:24pm B Complex And C 20-Folic Acid 1 mg capsule (1 source) Start: 09-30-2017 End: 11-08-2017 take 1 capsule by mouth once daily B Complex And C 20-Folic Acid 1 mg capsule Discontinued 1 CAP PO Daily September 30, 2017 12:00am November 08, 2017 1:25pm B Complex With C 20-Folic Acid (4 [...] 2017 1:25pm bumetanide 2 mg oral tablet (6 sources) Loop Diuretic Start: 09-30-2017 End: 12-31-2018 take 1 tablet by mouth once daily Bumetanide 2 mg Tablet Discontinued 2 MG PO Daily September 30, 2017 12:00am December 31, 2018 3:05pm calcium acetate 667 mg oral capsule (8 sources) Start: 09-30-2017 End: 08-25-2020 take 1 capsule by mouth three times daily at mealtime Calcium Acetate(Phosphat Bind) 667 mg Capsule Discontinued 667 MG PO THREE TIMES DAILY WITH MEALS September 30, 2017 12:00am August 25, 2020 12:34pm cholecalciferol 0.125 mg oral tablet (6 sources) Vitamin D Start: 08-18-2020 End: 08-25-2020 take 1 tablet by mouth once daily Cholecalciferol (Vitamin D3) (Vitamin D3) 125 mcg (5,000 unit) Tablet Discontinued 125 MCG PO Daily August 18, 2020 12:00am August 25, 2020 12:34pm doxycycline hyclate 100 mg oral capsule (6 sources) Tetracycline-c lass Drug Start: 11-12-2017 End: 12-03-2017 take 1 capsule by mouth twice daily Doxycycline Hyclate 100 mg capsule Discontinued 100 MG PO Twice daily 28 November 12, 2017 12:00am December 02, 2017 12:00am December 03, 2017 12:01am gabapentin 800 mg oral tablet (12 sources) Anti-epileptic Agent Start: 08-18-2020 End: 08-25-2020 take 1 tablet by mouth twice daily Gabapentin 800 mg tablet Discontinued 800 MG PO Twice daily August 18, 2020 12:00am August 25, 2020 12:34pm Start: 09-30-2017 End: 12-31-2018 take 1 tablet by mouth twice daily Gabapentin 600 mg tablet Discontinued 600 MG PO Twice daily September 30, 2017 12:00am December 31, 2018 3:10pm 3 ml insulin lispro 100 unt/ml pen injector (19 sources) Insulin Analog Start: 11-08-2017 End: 12-31-2018 [...] TIMES DAILY WITH MEALS September 30, 2017 12:00am October 04, 2017 1:11pm HumaLOG KwikPen 200 UNIT/ML as directed Subcutaneous SLIDING SCALE Active linaclotide 0.145 mg oral capsule (6 sources) Guanylate Cyclase-C Agonist Start: 09-30-2017 End: 11-08-2017 take 1 capsule by mouth once daily Linaclotide 145 mcg capsule Discontinued 145 MCG PO Daily September 30, 2017 12:00am November 08, 2017 1:31pm losartan potassium 100 mg oral tablet (7 sources) Angiotensin 2 Receptor Osman Start: 12-31-2018 End: 01-05-2019 take 1 tablet by mouth once daily Losartan 100 mg Tablet Discontinued 100 MG PO Daily December 31, 2018 12:00am January 05, 2019 2:16pm take 2 tablets by mouth in the m orning losartan (COZAAR) 50 mg tablet Take 2 tablets (100 mg total) by mouth in the morning. Active methotrexate 2.5 mg oral tablet (8 sources) Folate Analog Metabolic Inhibitor Start: 12-31-2018 [...] week Active metOLazone 10 mg oral tablet (6 sources) Thiazide-like Diuretic Start: 09-30-2017 End: 12-31-2018 take 1 tablet by mouth twice daily Metolazone 10 mg tablet Discontinued 10 MG PO Twice daily September 30, 2017 12:00am December 31, 2018 3:12pm rosuvastatin calcium 40 mg oral tablet (9 sources) HMG-CoA Reductase Inhibitor Start: 08-18-2020 take 10 mg by mouth once daily Rosuvastatin (Crestor) 40 mg Tablet Active 10 MG PO Daily August 18, 2020 9:12pm Start: 08-18-2020 End: 08-25-2020 Rosuvastatin (Crestor) 40 mg Tablet Discontinued 20 MG PO Daily August 18, 2020 12:00am August 25, 2020 12:34pm Start: 09-30-2017 take 10 mg by mouth once daily Rosuvastatin Active 10 MG Oral Daily September 30, 2017 6:35pm sodium bicarbonate 325 mg oral tablet (8 sources) Start: 11-08-2017 take 325 mg by mouth once daily Sodium Bicarbonate Active 325 MG Oral Daily November 08, 2017 1:34pm Start: 11-08-2017 End: 08-25-2020 take 1 tablet by mouth twice daily Sodium Bicarbonate 325 mg Tablet Discontinued 325 MG PO Twice daily November 08, 2017 12:00am August 25, 2020 12:34pm sulfamethoxazole 800 mg / trimethoprim 160 mg oral tablet (13 sources) Dihydrofolate Reductase Inhibitor Antibacterial, Sulfonamide Antimicrobial Start: 12-31-2018 End: 01-05-2019 take 1 tablet by mouth twice daily Sulfamethoxazole-Trimethoprim (Bactrim Ds) 800-160 mg Tablet Discontinued 1 TAB PO Twice daily December 31, 2018 12:00am January 05, 2019 2:16pm Start: 09-30-2017 End: 10-04-2017 take 1 tablet by mouth twice daily Sulfamethoxazole-Trimethoprim 800-160 mg tablet Discontinued 1 TAB PO Twice daily September 30, 2017 12:00am October 04, 2017 12:33pm varenicline 1 mg oral tablet (7 sources) Partial Cholinergic Nicotinic Agonist Start: 09-30-2017 End: 01-05-2019 take 1 tablet by mouth once daily Varenicline Tartrate 1 mg tablet Discontinued 1 MG PO Daily September 30, 2017 12:00am January 05, 2019 2:16pm vorapaxar 2.08 mg oral tablet (6 sources) Protease-activated Receptor-1 Antagonist Start: 09-30-2017 End: 11-08-2017 take 1 tablet by mouth once daily Vorapaxar 2.08 mg Tablet Discontinued 2.08 MG PO Daily September 30, 2017 12:00am November 08, 2017 1:36pm Problems Active Problems Problem Classification Problem Date Documented Date Episodic/Chronic Acute and unspecified renal failure (6 sources) Acute kidney failure, unspecified; Translations: [Acute kidney failure, unspecified] Onset: 2 Episodic Bacterial infection; unspecified site (14 sources) Methicillin resistant Staphylococcus aureus infection; Translations: [Streptococcus agalactiae infection] 11-11-2017 Episodic Chronic kidney disease (20 sources) Chronic kidney disease stage 4; Translations: [Chronic kidney disease, stage 4 (severe)] Onset: 1 Resolved: 1 Chronic Chronic kidney disease (2 sources) Chronic kidney disease; Translations: [Chronic kidney disease, stage 3 unspecified] Onset: 4 Chronic obstructive pulmonary disease and bronchiectasis (12 sources) Chronic obstructive lung disease; Translations: [Chronic [...] Resolved: 1 Chronic Diabetes mellitus without complication (13 sources) Type 2 diabetes mellitus; Translations: [Diabetes mellitus] Onset: 3 09-30-2017 Chronic Diabetes mellitus without complication (2 sources) Hyperglycemia; Translations: [Hyperglycemia, unspecified] Episodic Disorders of lipid metabolism (4 sources) Hyperlipidemia; Translations: [Hyperlipidemia, unspecified] Onset: 1 Resolved: 1 Chronic Esophageal disorders (11 sources) Gastroesophageal reflux disease; Translations: [Gastro-esophageal reflux disease without esophagitis] Chronic Essential hypertension (11 sources) Hypertensive disorder; Translations: [Essential (primary) hypertension] Onset: 2 Chronic Fluid and electrolyte disorders (10 sources) Metabolic acidosis; Translations: [Acidosis] Episodic Gangrene (2 sources) Critical lower limb ischemia ; Translations: [Atherosclerosis of [place] arteries of extremities with gangrene, left leg] Onset: 4 02-27-2024 Chronic Genitourinary symptoms and ill-defined conditions (2 sources) Dysuria; Translations: [Dysuria] Onset: 4 Episodic Hypertension with complications and secondary hypertension (13 sources) Chronic kidney disease due to hypertension; [...] Chronic Other bone disease and musculoskeletal deformities (6 sources) History of amputation of right foot; [...] 07-20-2016 Chronic Other inflammatory condition of skin (7 sources) Psoriasis; Translations: [Psoriasis, unspecified] 01-05-2019 Chronic Other inflammatory condition of skin (5 sources) Psoriasis, unspecified; Translations: [Other psoriasis] Onset: 3 Chronic Other inflammatory condition of skin (1 source) Other psoriasis; Translations: [OTHER PSORIASIS] Onset: 3 Chronic Other liver diseases (1 source) Liver disease, unspecified; Translations: [LIVER DISEASE UNSPECIFIED] Onset: 3 Chronic Other lower respiratory disease (5 sources) History of pleural effusion; Translations: [Personal history of other diseases of the respiratory system] 08-20-2020 Episodic Other lower respiratory disease (5 sources) Pleuritic pain; Translations: [Pleurodynia] 08-20-2020 Episodic Other lower respiratory disease (3 sources) Personal history of other diseases of the respiratory system; Translations: [Personal history of other diseases of respiratory system] Episodic Other lower respiratory disease (3 sources) Pleurodynia; Translations: [Painful respiration] Episodic Other nutritional; endocrine; and metabolic disorders (7 sources) Morbid obesity; Translations: [Morbid (severe) obesity due to excess calories] 09-30-2017 Chronic Other nutritional; endocrine; and metabolic disorders (5 sources) Morbid (severe) obesity due to excess calories; Translations: [Morbid obesity] Onset: 2 Chronic Kristin-; endo-; and myocarditis; cardiomyopathy (except that caused by tuberculosis or sexually transmitted disease) (8 sources) Pericarditis; Translations: [Disease of pericardium, unspecified] Episodic Peripheral and visceral atherosclerosis (12 sources) Peripheral vascular disease; Translations: [Peripheral vascular disease, unspecified] Onset: 3 Chronic Pleurisy; pneumothorax; pulmonary collapse (16 sources) Thickening of pleura; 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 Scanned copy available in EMR. PERFORMED BY: [place] [address] PATHOLOGIST SUPERVISOR PRE WAVE CARLOS BIRMINGHAM M.D. Performed By: #### P ATH TO [facility] #### [address] No Panel InformationOrdered By: Chino Elliott on 08-28-2024 Miscellaneous Pathology Test See comment [facility] Comment on above: See report. Scanned copy available in EMR. Pathology Request for Lab Co rpon 08-28-2024 Pathology Request for Lab [place] Normal [facility] Comment on above: Order Comment: RIGHT HALLUX Result Comment: See report. Scanned copy available in EMR. PERFORMED BY: [place] [address] PATHOLOGIST SUPERVISOR PRE WAVE NIMA MCCLELLAN M.D. Performed By: #### P ATH TO [facility] #### [facility] [address] [place] [address] BLOOD UREA NITROGENon 2023 Urea nitrogen [Mass/Vol] 40 mg/dL High 5-27 [facility] Comment on above: Performed By: #### E LEC, 3094-0, SPOOL TENDER, 59259-6 #### [facility] ([id number]) [address] [place] [address] #### 25979-4, HA1C #### [facility] ([id number]) [address], [address] [place] [address] CBC AND AUTO DIFFon 02-17-20 ABSOLUTE BASOPHIL 0.0 X10E9/L Normal 0.0-0.2 [facility] Comment on above: Performed By: #### U A #### [facility] ([id number]) [address] [place] [address] 59258 ABSOLUTE NEUTROPHIL 5.2 X10E9/L Normal 1.5-6.6 [facility] Comment on above: Performed By: #### U A #### [facility] ([id number]) [address] [place] [address] 07663 Basophils/100 WBC (Bld) 0.6 % Normal [facility] Comment on above: Performed By: #### U A #### [facility] ([id number]) [address] [place] [address] 07424 Eosinophils (Bld) [#/Vol] 0.6 10*3/uL High 0.0-0.4 [facility] Comment on above: Performed By: #### U A #### [facility] ([id number]) [address] [place] [address] 49452 Eosinophils/100 WBC (Bld) 6.5 % Normal [facility] Comment on above: Performed By: #### U A #### [facility] ([id number]) [address] [place] [address] 34994 Erythrocyte distribution width (RBC) [Ratio] 14.2 % Normal 11.5-15.0 [facility] Comment on above: Performed By: #### U A #### [facility] ([id number]) [address] [place] [address] 14102 Hematocrit (Bld) [Volume fraction] 37.5 % Low 39-49 [facility] Comment on above: Performed By: #### U A #### [facility] ([id number]) [address] [place] [address] 93108 Hemoglobin (Bld) [Mass/Vol] 12.3 g/dL Low 13.0-17.0 [facility] Comment on above: Performed By: #### U A #### [facility] ([id number]) [address] [place] [address] 51161 Lymphocytes (Bld) [#/Vol] 1.9 10*3/uL Normal 1.0-3.5 [facility] Comment on above: Performed By: #### U A #### [facility] ([id number]) [address] [place] [address] 00007 Lymphocytes/100 WBC (Bld) 21.4 % Normal [facility] Comment on above: Performed By: #### U A #### [facility] ([id number]) [address] [place] [address] 45348 MCH (RBC) [Entitic mass] 29.3 pg Normal 27-34 [facility] Comment on above: Performed By: #### U A #### [facility] ([id number]) [address] [place] [address] 28166 MCHC (RBC) [Mass/Vol] 32.7 g/dL Normal 32-36 [facility] Comment on above: Performed By: #### U A #### [facility] ([id number]) [address] [place] [address] 21419 MCV (RBC) [Entitic vol] 90 fL Normal 80-100 [facility] Comment on above: Performed By: #### U A #### [facility] ([id number]) [address] [place] [address] 89770 Monocytes (Bld) [#/Vol] 1.1 10*3/uL High 0-0.9 [facility] Comment on above: Performed By: #### U A #### [facility] ([id number]) [address] [place] [address] 85095 Monocytes/100 WBC (Bld) 12.8 % Normal [facility] Comment on above: Performed By: #### U A #### [facility] ([id number]) [address] [place] [address] 46504 Neutrophils/100 WBC (Bld) 58.7 % Normal [facility] Comment on above: Performed By: #### U A #### [facility] ([id number]) [address] [place] [address] 15549 Platelet mean volume (Bld) [Entitic vol] 6.6 fL Low 7-12 [facility] Comment on above: Performed By: #### U A #### [facility] ([id number]) [address] [place] [address] 90095 Platelets (Bld) [#/Vol] 281 10*3/uL Normal 150-450 [facility] Comment on above: Performed By: #### U A #### [facility] ([id number]) [address] [place] [address] 57446 RBC COUNT 4.19 X10E12/L Normal 4.10-5.70 [facility] Comment on above: Performed By: #### U A #### [facility] ([id number]) [address] [place] [address] 76870 WBC (Bld) [#/Vol] 8.8 10*3/uL Normal 4.0-11.0 [facility] Comment on above: Performed By: #### U A #### [facility] ([id number]) [address] [place] [address] 29110 CREATININEon 02-17-2024 Creatinine [Mass/Vol] 3.74 mg/dL High 0.70-1.20 [facility] Comment on above: Result Comment: METH OD TRACEABLE TO IDMS STANDARD Performed By: #### E LEC, 3094-0, SPOOL TENDER, 36195-6 #### [facility] ([id number]) [address] [place] [address] 82206 #### 26196-2, HA1C #### [facility] ([id number]) [address] [place] [address], [address] [place] [address] GFR/1.73 sq M.predicted among non-blacks MDRD (S/P/Bld) [Vol rate/Area] 17 mL/min/{1.73_m2} Low >59 [facility] Comment on above: Result Comment: Reported eGFR is based on the CKD-EPI 2020 equation that does not use a race coefficient. Performed By: #### E LEC, 3094-0, SPOOL TENDER, 82880-4 #### [facility] ([id number]) [address] [place] [address] 67137 #### 55751-8, HA1C #### [facility] ([id number]) [address] [place] [address], [address] [place] [address] ELECTROLYTESon 02-17-2024 Anion gap [Moles/Vol] 8 mmol/L Normal 5-15 [facility] Comment on above: Performed By: #### Tiki LEC, 309-0, SPOOL TENDER, 07402-3 #### [facility] ([id number]) [address] [place] [address] 85477 #### 12446-6, HA1C #### [facility] ([id number]) [address] [place] [address], [address] [place] [address] Chloride [Moles/Vol] 106 mmol/L Normal 98-109 [facility] Comment on above: Performed By: #### E LEC, 3094-0, SPOOL TENDER, 71454-5 #### [facility] ([id number]) [address] [place] [address] 74357 #### 54079-1, HA1C #### [facility] ([id number]) [address] [place] [address], [address] [place] [address] CO2 [Moles/Vol] 21 mmol/L Low 22-32 [facility] Comment on above: Performed By: #### E LEC, 3094-0, SPOOL TENDER, 71964-9 #### [facility] ([id number]) [address] [place] [address] 09149 #### 62523-5, HA1C #### [facility] ([id number]) [address] [place] [address] Potassium [Moles/Vol] 5.2 mmol/L High 3.5-5.0 [facility] Comment on above: Performed By: #### E LEC, 3094-0, SPOOL TENDER, 22452-0 #### [facility] ([id number]) [address] [place] [address] 19041 #### 19703-6, HA1C #### [facility] ([id number]) [address] [place] [address] Sodium [Moles/Vol] 135 mmol/L Normal 134-146 [facility] Comment on above: Performed By: #### E LEC, 3094-0, SPOOL TENDER, 94574-5 #### [facility] ([id number]) [address] [place] [address] 68283 #### 49290-9, HA1C #### [facility] ([id number]) [address] [place] [address] BLOOD UREA NITROGENon 2023 Urea nitrogen [Mass/Vol] 50 mg/dL High 5-27 [facility] Comment on above: Performed By: #### U A #### [facility] ([id number]) [address] [place] [address] 27706 CALCIUMon 01-20-2024 Calcium [Mass/Vol] 8.7 mg/dL Normal 8.5-10.5 [facility] Comment on above: Performed By: #### B MP, CBCA, 1987-08, 36679-2 #### [facility] ([id number]) [address] [place] [address] 30017 #### 31244-5 #### [facility] ([id number]) [address] [place] [address] CBC AND AUTO DIFFon 01-20-20 24 ABSOLUTE BASOPHIL 0.1 X10E9/L Normal 0.0-0.2 [facility] Comment on above: Performed By: #### B ALCON, CBCA, 1987-08, 79817-3 #### [facility] ([id number]) [address] [place] [address] 12664 #### 32895-7 #### [facility] ([id number]) [address], [address] [place] [address] ABSOLUTE NEUTROPHIL 6.0 X10E9/L Normal 1.5-6.6 [facility] Comment on above: Performed By: #### B ALCON, CBCA, 1987-08, 51746-6 #### [facility] ([id number]) [address] [place] [address] 36027 #### 64114-9 #### [facility] ([id number]) [address] [place] [address] Basophils/100 WBC (Bld) 0.6 % Normal [facility] Comment on above: Performed By: #### B MP, CBCA, 1987-08, 91374-9 #### [facility] ([id number]) [address] [place] [address] 59121 #### 73194-2 #### [facility] ([id number]) [address] [place] [address] Eosinophils (Bld) [#/Vol] 0.3 10*3/uL Normal 0.0-0.4 [facility] Comment on above: Performed By: #### Laura RONDON, CBCA, 1987-08, 74648-2 #### [facility] ([id number]) [address] [place] [address] 35296 #### 07506-6 #### [facility] ([id number]) [address] [place] [address] Eosinophils/100 WBC (Bld) 3.1 % Normal [facility] Comment on above: Performed By: #### Laura RONDON CBCA, 1987-08, #### [facility] ([id number]) [address] [place] [address] 35313 #### 51662-4 #### [facility] ([id number]) [address] [place] [address] Erythrocyte distribution width (RBC) [Ratio] 13.5 % Normal 11.5-15.0 [facility] Comment on above: Performed By: #### Laura RONDON CBCA, 1987-08, #### [facility] ([id number]) [address] [place] [address] 30182 #### 01586-0 #### [facility] ([id number]) [address] [place] [address] Hematocrit (Bld) [Volume fraction] 36.1 % Low 39-49 [facility] Comment on above: Performed By: #### Laura RONDON CBCA, 1987-08, #### [facility] ([id number]) [address] [place] [address] 12675 #### 89659-1 #### [facility] ([id number]) [address] [place] [address] Hemoglobin (Bld) [Mass/Vol] 11.8 g/dL Low 13.0-17.0 [facility] Comment on above: Performed By: #### B ALCON, CBCA, 1987-08, #### [facility] ([id number]) [address] [place] [address] 65792 #### 92584-1 #### [facility] ([id number]) [address] [place] [address] Lymphocytes (Bld) [#/Vol] 2.0 10*3/uL Normal 1.0-3.5 [facility] Comment on above: Performed By: #### Laura RONDON CBCA, 1987-08, #### [facility] ([id number]) [address] [place] [address] 46047 #### 82473-5 #### [facility] ([id number]) [address], [address] [place] [address] Lymphocytes/100 WBC (Bld) 20.7 % Normal [facility] Comment on above: Performed By: #### Laura RONDON CBCA, 1987-08, #### [facility] ([id number]) [address] [place] [address] 45814 #### 73620-3 #### [facility] ([id number]) [address] [place] [address] MCH (RBC) [Entitic mass] 29.1 pg Normal 27-34 [facility] Comment on above: Performed By: #### Laura RONDON CBCA, 1987-08, #### [facility] ([id number]) [address] [place] [address] 95762 #### 12385-5 #### [facility] ([id number]) [address] [place] [address] MCHC (RBC) [Mass/Vol] 32.8 g/dL Normal 32-36 [facility] Comment on above: Performed By: #### Laura RONDON, CBCA, 1987-08, #### [facility] ([id number]) [address] [place] [address] 57525 #### 48217-3 #### [facility] ([id number]) [address] [place] [address] MCV (RBC) [Entitic vol] 89 fL Normal 80-100 [facility] Comment on above: Performed By: #### B ALCON CBCA, 1987-08, #### [facility] ([id number]) [address] [place] [address] 68256 #### 95630-5 #### [facility] ([id number]) [address] [place] [address] Monocytes (Bld) [#/Vol] 1.2 10*3/uL High 0-0.9 [facility] Comment on above: Performed By: #### Laura RONDON, CBCA, 1987-08, #### [facility] ([id number]) [address] [place] [address] 68206 #### 76486-6 #### [facility] ([id number]) [address] [place] [address] Monocytes/100 WBC (Bld) 12.3 % Normal [facility] Comment on above: Performed By: #### Laura RONDON, CBCA, 1987-08, #### [facility] ([id number]) [address] [place] [address] 34656 #### 19816-1 #### [facility] ([id number]) [address] [place] [address] Neutrophils/100 WBC (Bld) 63.3 % Normal [facility] Comment on above: Performed By: #### B ALCON CBCA, 1987-08, #### [facility] ([id number]) [address] [place] [address] 46384 #### 66531-1 #### [facility] ([id number]) [address], [address] [place] [address] Platelet mean volume (Bld) [Entitic vol] 7.7 fL Normal 7-12 [facility] Comment on above: Performed By: #### Laura RONDON CBCA, 1987-08, #### [facility] ([id number]) [address] [place] [address] 87851 #### 09289-1 #### [facility] ([id number]) [address] [place] [address] Platelets (Bld) [#/Vol] 264 10*3/uL Normal 150-450 [facility] Comment on above: Performed By: #### Laura RONDON CBCA, 1987-08, 21832-8 #### [facility] ([id number]) [address] [place] [address] 63798 #### 37978-5 #### [facility] ([id number]) [address] [place] [address] RBC COUNT 4.07 X10E12/L Low 4.10-5.70 [facility] Comment on above: Performed By: #### Laura RONDON CBCA, 1987-08, #### [facility] ([id number]) [address] [place] [address] 34100 #### 82281-7 #### [facility] ([id number]) [address] [facility] [address], [address] [place] [address] WBC (Bld) [#/Vol] 9.4 10*3/uL Normal 4.0-11.0 [facility] Comment on above: Performed By: #### B MP, CBCA, 1987-, 36799-8 #### [facility] ([id number]) [address] [place] [address] 86984 #### 39338-0 #### [facility] ([id number]) [address] [facility] [address] [address], [address] [place] [address] CREATININEon 01-20-2024 Creatinine [Mass/Vol] 3.14 mg/dL High 0.70-1.20 [facility] Comment on above: Result Comment: METH OD TRACEABLE TO IDMS STANDARD Performed By: #### U A #### [facility] ([id number]) [address] [place] [address] 72467 GFR/1.73 sq M.predicted among non-blacks MDRD (S/P/Bld) [Vol rate/Area] 21 mL/min/{1.73_m2} Low >59 [facility] Comment on above: Result Comment: Reported eGFR is based on the CKD-EPI 2020 equation that does not use a race coefficient. Performed By: #### U A #### [facility] ([id number]) [address] [place] [address] 01667 ELECTROLYTESon 01-20-2024 Anion gap [Moles/Vol] 8 mmol/L Normal 5-15 [facility] Comment on above: Performed By: #### U A #### [facility] ([id number]) [address] [place] [address] 41917 Chloride [Moles/Vol] 104 mmol/L Normal 98-109 [facility] Comment on above: Performed By: #### U A #### [facility] ([id number]) [address] [place] [address] 53430 CO2 [Moles/Vol] 19 mmol/L Low 22-32 [facility] Comment on above: Performed By: #### U A #### [facility] ([id number]) [address] [place] [address] 21567 Potassium [Moles/Vol] 4.9 mmol/L Normal 3.5-5.0 [facility] Comment on above: Performed By: #### U A #### [facility] ([id number]) [address] [place] [address] 82284 Sodium [Moles/Vol] 131 mmol/L Low 134-146 [facility] Comment on above: Performed By: #### U A #### [facility] ([id number]) [address] [place] [address] 98684 ESR Photometric method (Bld) [Velocity]on 01-20-2024 ESR, ERYTHROCYTE SEDIMENTATION RATE 98 mm/h High 0-20 [facility] Comment on above: Performed By: #### U A #### [facility] ([id number]) [address] [place] [address] 27285 HGB A1C (GLYCO-HGB)on 2023 Glucose [Mass/Vol] 289 mg/dL Normal [facility] Comment on above: Performed By: #### U A #### [facility] ([id number]) [address] [place] [address] 92777 HbA1c (Bld) [Mass fraction] 11.7 % High 4.4-5.6 [facility] Comment on above: Result Comment: NOTE ADA Guidelines Result HgbA1c Normal : less than 5.7 % Prediabetes : 5.7 % to 6.4 % Diabetes : > 6.4 % Use with caution in patients with abnormal hemoglobin variants as the half-life of red blood cells and in vivo glycation rates are affected. Performed By: #### U A #### [facility] ([id number]) [address] [place] [address] 41219 LIVER PANELon 01-20-2024 Albumin [Mass/Vol] 2.9 g/dL Low 3.2-5.3 [facility] Comment on above: Performed By: #### U A #### [facility] ([id number]) [address] [place] [address] 72799 ALP [Catalytic activity/Vol] 79 U/L Normal 39-130 [facility] Comment on above: Performed By: #### U A #### [facility] ([id number]) [address] [place] [address] 97815 ALT [Catalytic activity/Vol] 26 U/L Normal 0-40 [facility] Comment on above: Performed By: #### U A #### [facility] ([id number]) [address] [place] [address] 70040 AST [Catalytic activity/Vol] 19 U/L Normal 0-41 [facility] Comment on above: Performed By: #### U A #### [facility] ([id number]) [address] [place] [address] 97565 Bilirubin [Mass/Vol] 0.5 mg/dL Normal 0.3-1.2 [facility] Comment on above: Performed By: #### U A #### [facility] ([id number]) [address] [place] [address] 43231 Bilirubin.indirect [Mass/Vol] mg/dL Normal 0.0-0.4 [facility] Comment on above: Performed By: #### U A #### [facility] ([id number]) [address] [place] [address] 05028 Protein [Mass/Vol] 6.9 g/dL Normal 6.0-8.0 [facility] Comment on above: Performed By: #### U A #### [facility] ([id number]) [address] [place] [address] 87270 Lipid 1996 panelon 4 Cholesterol [Mass/Vol] 136 mg/dL Low 150-200 [facility] Comment on above: Performed By: #### U A #### [facility] ([id number]) [address] [place] [address] 85939 Cholesterol in HDL [Mass/Vol] 40 mg/dL Normal >39 [facility] Comment on above: Result Comment: HDL <40 mg/dL - High Risk HDL > or = 40mg/dL- Desirable HDL >60 mg/dL - Negative Risk Performed By: #### U A #### [facility] ([id number]) [address] [place] [address] 02209 Cholesterol in LDL [Mass/Vol] 62 mg/dL Normal <130 [facility] Comment on above: Result Comment: LDL <100 mg/dL - Desirable LDL >160 mg/dL - High Risk Performed By: #### U A #### [facility] ([id number]) [address] [place] [address] 40260 Cholesterol in VLDL [Mass/Vol] 34 mg/dL High 0-30 [facility] Comment on above: Performed By: #### U A #### [facility] ([id number]) [address] [place] [address] 22536 CHOLESTEROL:HDL 3.4 Normal 1.0-5.0 [facility] Comment on above: Performed By: #### U A #### [facility] ([id number]) [address] [place] [address] 80560 Triglyceride [Mass/Vol] 172 mg/dL High 27-150 [facility] Comment on above: Performed By: #### U A #### [facility] ([id number]) [address] [place] [address] 74347 Natriuretic peptide B [Mass/ Vol]on 01-20-2024 Natriuretic peptide B (Bld) [Mass/Vol] 88 pg/mL Normal <100.0 [facility] Comment on above: Performed By: #### U A #### [facility] ([id number]) [address] [place] [address] 08807 Vitamin D+Metabolites [Mass/ Vol]on 01-20-2024 VITAMIN D 25 HYD TOT 15.1 ng/mL Low 30-100 [facility] Comment on above: Result Comment: Vitamin D status 25 [place] Vitamin D Deficiency <20 ng/mL Insufficiency 20-29 ng/mL Sufficiency 30-100 ng/mL Toxicity >100 ng/mL NOTE: A pediatric reference range has not been established by the planning rn of this kit. The [place] [employer] recommends a Vitamin D level of = or >20ng/mL in infants and children. Performed By: #### U A #### [facility] ([id number]) [address] [place] [address] 46691 BLOOD UREA NITROGENon 2023 Urea nitrogen [Mass/Vol] 50 mg/dL High 5-27 [facility] Comment on above: Performed By: #### B MP, CBCA, 1987-, 10522-7 #### [facility] ([id number]) [address] [place] [address] 01226 #### [id number] #### [facility] ([id number]) [address], [address] [place] [address] CBC AND AUTO DIFFon 12-16-19 24 ABSOLUTE BASOPHIL 0.0 X10E9/L Normal 0.0-0.2 [facility] Comment on above: Performed By: #### B MP, CBCA, 1987-08, 60223-0 #### [facility] ([id number]) [address] [place] [address] 69285 #### [id number] #### [facility] ([id number]) [address], [address] [place] [address] ABSOLUTE NEUTROPHIL 5.7 X10E9/L Normal 1.5-6.6 [facility] Comment on above: Performed By: #### B MP, CBCA, 1987-08, 17511-8 #### [facility] ([id number]) [address] [place] [address] 62110 #### [id number] #### [facility] ([id number]) [address] [facility], [address] [place] [address] Basophils/100 WBC (Bld) 0.4 % Normal [facility] Comment on above: Performed By: #### B MP, CBCA, 1987-08, 57659-9 #### [facility] ([id number]) [address] [place] [address] 47860 #### 77347-7 #### [facility] ([id number]) [address], [address] [place] [address] Eosinophils (Bld) [#/Vol] 0.4 10*3/uL Normal 0.0-0.4 [facility] Comment on above: Performed By: #### B MP, CBCA, 1987-08, 82012-0 #### [facility] ([id number]) [address] [place] [address] 63051 #### 77168-9 #### [facility] ([id number]) [address], [address] [place] [address] Eosinophils/100 WBC (Bld) 4.8 % Normal [facility] Comment on above: Performed By: #### B ALCON, CBCA, 1987-08, 41676-3 #### [facility] ([id number]) [address] [place] [address] 75791 #### 71547-6 #### [facility] ([id number]) [address] [facility] [facility] [place] [address] Erythrocyte distribution width (RBC) [Ratio] 14.7 % Normal 11.5-15.0 [facility] Comment on above: Performed By: #### Laura RONDON, CBCA, 1987-08, 68859-5 #### [facility] ([id number]) [address] [place] [address] 50981 #### 31590-4 #### [facility] ([id number]) [address] [facility] [facility] [place] [address] Hematocrit (Bld) [Volume fraction] 39.0 % Normal 39-49 [facility] Comment on above: Performed By: #### Laura RONDON, CBCA, 1987-08, 10429-2 #### [facility] ([id number]) [address] [place] [address] 42900 #### 83047-5 #### [facility] ([id number]) [address], [address] [place] [address] Hemoglobin (Bld) [Mass/Vol] 13.3 g/dL Normal 13.0-17.0 [facility] Comment on above: Performed By: #### Laura RONDON, CBCA, 1987-08, 59798-3 #### [facility] ([id number]) [address] [place] [address] 79484 #### 00587-0 #### [facility] ([id number]) [address], [address] [place] [address] Lymphocytes (Bld) [#/Vol] 1.7 10*3/uL Normal 1.0-3.5 [facility] Comment on above: Performed By: #### Laura MP, CBCA, 1987-08, #### [facility] ([id number]) [address] [place] [address] 18369 #### 16365-5 #### [facility] ([id number]) [address], [address] [place] [address] Lymphocytes/100 WBC (Bld) 19.3 % Normal [facility] Comment on above: Performed By: #### Laura MP, CBCA, 1987-08, #### [facility] ([id number]) [address] [place] [address] 38331 #### 41965-1 #### [facility] ([id number]) [address], [address] [place] [address] MCH (RBC) [Entitic mass] 29.8 pg Normal 27-34 [facility] Comment on above: Performed By: #### Laura MP, CBCA, 1987-08, #### [facility] ([id number]) [address] [place] [address] 44137 #### 13289-7 #### [facility] ([id number]) [address], [address] [place] [address] MCHC (RBC) [Mass/Vol] 34.0 g/dL Normal 32-36 [facility] Comment on above: Performed By: #### B MP, CBCA, #### [facility] ([id number]) [address] [place] [address] 07823 #### 56220-6 #### [facility] ([id number]) [address], [address] [place] [address] MCV (RBC) [Entitic vol] 88 fL Normal 80-100 [facility] Comment on above: Performed By: #### B MP, CBCA, 1987-08, #### [facility] ([id number]) [address] [place] [address] 93623 #### 51871-2 #### [facility] ([id number]) [address], [address] [place] [address] Monocytes (Bld) [#/Vol] 0.8 10*3/uL Normal 0-0.9 [facility] Comment on above: Performed By: #### B ALCON, CBCA, 1987-08, #### [facility] ([id number]) [address] [place] [address] 07248 #### 50005-7 #### [facility] ([id number]) [address], [address] [place] [address] Monocytes/100 WBC (Bld) 8.8 % Normal [facility] Comment on above: Performed By: #### Laura MP, CBCA, 1987-08, #### [facility] ([id number]) [address] [place] [address] 35952 #### 57445-0 #### [facility] ([id number]) [address], [address] [place] [address] Neutrophils/100 WBC (Bld) 66.7 % Normal [facility] Comment on above: Performed By: #### B MP, CBCA, 1987-08, #### [facility] ([id number]) [address] [place] [address] 63160 #### 39334-5 #### [facility] ([id number]) [address], [address] [place] [address] Platelet mean volume (Bld) [Entitic vol] 7.7 fL Normal 7-12 [facility] Comment on above: Performed By: #### B ALCON, CBCA, 1987-08, 72610-1 #### [facility] ([id number]) [address] [place] [address] 13947 #### 36828-6 #### [facility] ([id number]) [address] [place] [address] Platelets (Bld) [#/Vol] 286 10*3/uL Normal 150-450 [facility] Comment on above: Performed By: #### B ALCON, CBCA, 1987-08, 89241-6 #### [facility] ([id number]) [address] [place] [address] 88907 #### 51072-0 #### [facility] ([id number]) [address], [address] [place] [address] RBC COUNT 4.46 X10E12/L Normal 4.10-5.70 [facility] Comment on above: Performed By: #### B ALCON, CBCA, 1987-08, 93449-9 #### [facility] ([id number]) [address] [place] [address] 03184 #### 43898-5 #### [facility] ([id number]) [address], [address] [place] [address] WBC (Bld) [#/Vol] 8.6 10*3/uL Normal 4.0-11.0 [facility] Comment on above: Performed By: #### B JAMES RONDON, 1987-08, 14199-4 #### [facility] ([id number]) [address] [place] [address] 78938 #### 18949-6 #### [facility] ([id number]) [address], [address] [place] [address] CREATININEon 12-16-2023 Creatinine [Mass/Vol] 3.32 mg/dL High 0.70-1.20 [facility] Comment on above: Result Comment: METH OD TRACEABLE TO IDMS STANDARD Performed By: #### B JAMES RONDON, 1987-08, #### [facility] ([id number]) [address] [place] [address] 13223 #### 31146-0 #### [facility] ([id number]) [address], [address] [place] [address] GFR/1.73 sq M.predicted among non-blacks MDRD (S/P/Bld) [Vol rate/Area] 20 mL/min/{1.73_m2} Low >59 [facility] Comment on above: Result Comment: Reported eGFR is based on the CKD-EPI 2020 equation that does not use a race coefficient. Performed By: #### B JAMES RONDON, 1987-08, 25610-5 #### [facility] ([id number]) [address] [place] [address] 02200 #### 62014-7 #### [facility] ([id number]) [address], [address] [place] [address] ELECTROLYTESon 12-16-2023 Anion gap [Moles/Vol] 8 mmol/L Normal 5-15 [facility] Comment on above: Performed By: #### B JAMES RONDON, 1987-08, 26142-8 #### [facility] ([id number]) [address] [place] [address] 83815 #### 49083-3 #### [facility] ([id number]) [address] [place] [address], [address] [place] [address] Chloride [Moles/Vol] 103 mmol/L Normal 98-109 [facility] Comment on above: Performed By: #### SEVEN Sanchez MPA, 1987-08, 32644-0 #### [facility] ([id number]) [address] [place] [address] 32615 #### 45771-6 #### [facility] ([id number]) [address] [place] [address], [address] [place] [address] CO2 [Moles/Vol] 18 mmol/L Low 22-32 [facility] Comment on above: Performed By: #### JAMES Sanchez MP, 1987-08, 26082-5 #### [facility] ([id number]) [address] [place] [address] 75273 #### 19489-9 #### [facility] ([id number]) [address] [place] [address], [address] [place] [address] Potassium [Moles/Vol] 4.5 mmol/L Normal 3.5-5.0 [facility] Comment on above: Performed By: #### JAMES Sanchez MP, 1987-08, 52530-9 #### [facility] ([id number]) [address] [place] [address] 11782 #### 39757-5 #### [facility] ([id number]) [address] [place] [address], [address] [place] [address] Sodium [Moles/Vol] 129 mmol/L Low 134-146 [facility] Comment on above: Performed By: #### SEVEN Sanchez MPA, 1987-08, 75478-3 #### [facility] ([id number]) [address] [place] [address] 69850 #### 37353-1 #### [facility] ([id number]) [address], [address] [address] BLOOD UREA NITROGENon 2023 Urea nitrogen [Mass/Vol] 41 mg/dL High 5-27 [facility] Comment on above: Performed By: #### C BCA, 3094-0, SPOOL TENDER, ELEC #### [facility] ([id number]) [address], [address] [address] CBC AND AUTO DIFFon 11-19-19 ABSOLUTE BASOPHIL 0.2 X10E9/L Normal 0.0-0.2 [facility] Comment on above: Performed By: #### C BCA, 3094-0, SPOOL TENDER, ELEC #### [facility] ([id number]) [address], [address] [address] Basophils/100 WBC (Bld) 1.9 % Normal [facility] Comment on above: Performed By: #### C BCA, 3094-0, SPOOL TENDER, ELEC #### [facility] ([id number]) [address], [address] [address] KATHERINE 1+ Abnormal NONE [facility] Comment on above: Performed By: #### C BCA, 3094-0, SPOOL TENDER, ELEC #### [facility] ([id number]) [address], [address] [address] Eosinophils (Bld) [#/Vol] 0.4 10*3/uL Normal 0.0-0.4 [facility] Comment on above: Performed By: #### C BCA, 3094-0, SPOOL TENDER, ELEC #### [facility] ([id number]) [address] [address] Eosinophils/100 WBC (Bld) 3.8 % Normal [facility] Comment on above: Performed By: #### C BCA, 3094-0, SPOOL TENDER, ELEC #### [facility] ([id number]) [address], [facility] [address] [place] [address] Erythrocyte distribution width (RBC) [Ratio] 14.4 % Normal 11.5-15.0 [facility] Comment on above: Performed By: #### C BCA, 3094-0, SPOOL TENDER, ELEC #### [facility] ([id number]) [address], [facility] [address] [place] [address] Hematocrit (Bld) [Volume fraction] 40.3 % Normal 39-49 [facility] Comment on above: Performed By: #### C BCA, 3094-0, SPOOL TENDER, ELEC #### [facility] ([id number]) [address] [address] [place] [address] Hemoglobin (Bld) [Mass/Vol] 13.4 g/dL Normal 13.0-17.0 [facility] Comment on above: Performed By: #### C BCA, 3094-0, SPOOL TENDER, ELEC #### [facility] ([id number]) [address] [address] Lymphocytes (Bld) [#/Vol] 2.0 10*3/uL Normal 1.0-3.5 [facility] Comment on above: Performed By: #### C BCA, 3094-0, SPOOL TENDER, ELEC #### [facility] ([id number]) [address], [address] [address] Lymphocytes/100 WBC (Bld) 21.7 % Normal [facility] Comment on above: Performed By: #### C BCA, 3094-0, SPOOL TENDER, ELEC #### [facility] ([id number]) [address] [address] [place] [address] MCH (RBC) [Entitic mass] 29.6 pg Normal 27-34 [facility] Comment on above: Performed By: #### C BCA, 3094-0, SPOOL TENDER, ELEC #### [facility] ([id number]) [address], [address] [place] [address] MCHC (RBC) [Mass/Vol] 33.4 g/dL Normal 32-36 [facility] Comment on above: Performed By: #### C IRENE, 3094-0, SPOOL TENDER, ELEC #### [facility] ([id number]) [address], [address] [place] [address] MCV (RBC) [Entitic vol] 89 fL Normal 80-100 [facility] Comment on above: Performed By: #### C IRENE, 3094-0, SPOOL TENDER, ELEC #### [facility] ([id number]) [address], [facility] [address] [place] [address] Monocytes (Bld) [#/Vol] 0.6 10*3/uL Normal 0-0.9 [facility] Comment on above: Performed By: #### C IRENE, 3094-0, SPOOL TENDER, ELEC #### [facility] ([id number]) [address], [facility] [address] [place] [address] Monocytes/100 WBC (Bld) 6.6 % Normal [facility] Comment on above: Performed By: #### C IRENE, 3094-0, SPOOL TENDER, ELEC #### [facility] ([id number]) [address], [facility] [address] [place] [address] Neutrophils (Bld) [#/Vol] 6.1 10*3/uL Normal 1.5-6.6 [facility] Comment on above: Performed By: #### C IRENE, 3094-0, SPOOL TENDER, ELEC #### [facility] ([id number]) [address], [facility] [address] [place] [address] Platelet mean volume (Bld) [Entitic vol] 8.0 fL Normal 7-12 [facility] Comment on above: Performed By: #### Gabrielle BONILLA, 3094-0, SPOOL TENDER, ELEC #### [facility] ([id number]) [address] [address] [place] [address] Platelets (Bld) [#/Vol] 253 10*3/uL Normal 150-450 [facility] Comment on above: Performed By: #### C BCA, 3094-0, SPOOL TENDER, ELEC #### [facility] ([id number]) [address] [address] [place] [address] RBC COUNT 4.54 X10E12/L Normal 4.10-5.70 [facility] Comment on above: Performed By: #### C BCA, 3094-0, SPOOL TENDER, ELEC #### [facility] ([id number]) [address] [address] SEG NEUTROPHIL 66.0 % Normal [facility] Comment on above: Performed By: #### C BCA, 3094-0, SPOOL TENDER, ELEC #### [facility] ([id number]) [address] [address] WBC (Bld) [#/Vol] 9.3 10*3/uL Normal 4.0-11.0 [facility] Comment on above: Performed By: #### C BCA, 3094-0, SPOOL TENDER, ELEC #### [facility] ([id number]) [address] [address] CREATININEon 11-19-2023 Creatinine [Mass/Vol] 3.18 mg/dL High 0.60-1.30 [facility] Comment on above: Result Comment: METH OD TRACEABLE TO IDMS STANDARD Performed By: #### C BCA, 3094-0, SPOOL TENDER, ELEC #### [facility] ([id number]) [address] [address] GFR/1.73 sq M.predicted among non-blacks MDRD (S/P/Bld) [Vol rate/Area] 21 mL/min/{1.73_m2} Low >59 [facility] Comment on above: Result Comment: Reported eGFR is based on the CKD-EPI 2020 equation that does not use a race coefficient. Performed By: #### C BCA, 3094-0, SPOOL TENDER, ELEC #### [facility] ([id number]) [address], [address] [place] [address] ELECTROLYTESon 11-19-2023 Anion gap [Moles/Vol] 9 mmol/L Normal 5-15 [facility] Comment on above: Performed By: #### C BCA, 3094-0, SPOOL TENDER, ELEC #### [facility] ([id number]) [address], [address] [place] [address] Chloride [Moles/Vol] 100 mmol/L Normal 98-109 [facility] Comment on above: Performed By: #### C BCA, 3094-0, SPOOL TENDER, ELEC #### [facility] ([id number]) [address] [place] [address] CO2 [Moles/Vol] 22 mmol/L Normal 22-32 [facility] Comment on above: Performed By: #### C BCA, 3094-0, SPOOL TENDER, ELEC #### [facility] ([id number]) [address], [address] [place] [address] Potassium [Moles/Vol] 3.9 mmol/L Normal 3.5-5.0 [facility] Comment on above: Performed By: #### C BCA, 3094-0, SPOOL TENDER, ELEC #### [facility] ([id number]) [address], [address] [place] [address] Sodium [Moles/Vol] 131 mmol/L Low 134-146 [facility] Comment on above: Performed By: #### C BCA, 3094-0, SPOOL TENDER, ELEC #### [facility] ([id number]) [address], [address] [place] [address] BLOOD UREA NITROGENon 2023 Urea nitrogen [Mass/Vol] 35 mg/dL High 5-27 [facility] Comment on above: Performed By: #### B ALCON CBCA, 1987-08, #### [facility] ([id number]) [address] [place] [address] 34264 #### 07758-7 #### [facility] ([id number]) [address], [address] [place] [address] CALCIUMon 10-23-2023 Calcium [Mass/Vol] 8.1 mg/dL Low 8.5-10.5 [facility] Comment on above: Performed By: #### B ALCON CBCA, 1987-08, #### [facility] ([id number]) [address] [place] [address] 43775 #### 86680-8 #### [facility] ([id number]) [address] [facility] [address] [place] [address] CBC AND AUTO DIFFon 10-23-19 24 ABSOLUTE BASOPHIL 0.0 X10E9/L Normal 0.0-0.2 [facility] Comment on above: Performed By: #### B ALCON CBCA, 63958-1 #### [facility] ([id number]) [address] [place] [address] 21502 #### 18118-8 #### [facility] ([id number]) [address], [address] [place] [address] ABSOLUTE NEUTROPHIL 5.4 X10E9/L Normal 1.5-6.6 [facility] Comment on above: Performed By: #### B ALCON CBCA, 1987-08, 79242-5 #### [facility] ([id number]) [address] [place] [address] 98191 #### 25988-8 #### [facility] ([id number]) [address], [address] [place] [address] Basophils/100 WBC (Bld) 0.5 % Normal [facility] Comment on above: Performed By: #### B ALCON, CBCA, 1987-08, #### [facility] ([id number]) [address] [place] [address] 91635 #### 42774-2 #### [facility] ([id number]) [address] [facility] [place] [address] Eosinophils (Bld) [#/Vol] 0.3 10*3/uL Normal 0.0-0.4 [facility] Comment on above: Performed By: #### B ALCON, CBCA, 1987-08, #### [facility] ([id number]) [address] [place] [address] 29189 #### 03738-1 #### [facility] ([id number]) [address] [facility] [place] [address] Eosinophils/100 WBC (Bld) 3.2 % Normal [facility] Comment on above: Performed By: #### B ALCON, CBCA, 1987-08, #### [facility] ([id number]) [address] [place] [address] 16727 #### 64688-3 #### [facility] ([id number]) [address], [address] [place] [address] Erythrocyte distribution width (RBC) [Ratio] 14.4 % Normal 11.5-15.0 [facility] Comment on above: Performed By: #### B ALCON, CBCA, 1987-08, #### [facility] ([id number]) [address] [place] [address] 26436 #### 96087-6 #### [facility] ([id number]) [address], [address] [place] [address] Hematocrit (Bld) [Volume fraction] 39.7 % Normal 39-49 [facility] Comment on above: Performed By: #### B ALCON, CBCA, 1987-08, #### [facility] ([id number]) [address] [place] [address] 45481 #### 94705-1 #### [facility] ([id number]) [address], [address] [place] [address] Hemoglobin (Bld) [Mass/Vol] 13.1 g/dL Normal 13.0-17.0 [facility] Comment on above: Performed By: #### B ALCON, CBCA, 1987-08, #### [facility] ([id number]) [address] [place] [address] 25360 #### 93448-4 #### [facility] ([id number]) [address], [address] [place] [address] Lymphocytes (Bld) [#/Vol] 2.1 10*3/uL Normal 1.0-3.5 [facility] Comment on above: Performed By: #### B ALCON, CBCA, 1987-08, #### [facility] ([id number]) [address] [place] [address] #### 56223-5 #### [facility] ([id number]) [address], [address] [place] [address] Lymphocytes/100 WBC (Bld) 24.5 % Normal [facility] Comment on above: Performed By: #### Laura RONDON, CBCA, 1987-08, #### [facility] ([id number]) [address] [place] [address] #### [id number] #### [facility] ([id number]) [address], [address] [place] [address] MCH (RBC) [Entitic mass] 29.0 pg Normal 27-34 [facility] Comment on above: Performed By: #### Laura RONDON, CBCA, 1987-08, 36870-2 #### [facility] ([id number]) [address] [place] [address] #### [id number] #### [facility] ([id number]) [address] [place] [address] MCHC (RBC) [Mass/Vol] 32.9 g/dL Normal 32-36 [facility] Comment on above: Performed By: #### Laura RONDON, CBCA, 1987-08, #### [facility] ([id number]) [address] [place] [address] 17472 #### [id number] #### [facility] ([id number]) [address] [place] [address] MCV (RBC) [Entitic vol] 88 fL Normal 80-100 [facility] Comment on above: Performed By: #### Laura RONDON, CBCA, 1987-08, #### [facility] ([id number]) [address] [place] [address]26[address] #### [id number] #### [facility] ([id number]) [address] [place] [address] Monocytes (Bld) [#/Vol] 0.8 10*3/uL Normal 0-0.9 [facility] Comment on above: Performed By: #### Laura RONDON, CBCA, 1987-08, #### [facility] ([id number]) [address] [place] [address] #### [id number] #### [facility] ([id number]) [address], [address] [place] [address] Monocytes/100 WBC (Bld) 9.2 % Normal [facility] Comment on above: Performed By: #### B MP, CBCA, 1987-08, 53502-9 #### [facility] ([id number]) [address] [place] [address]239 #### [id number] #### [facility] ([id number]) [address] [place] [address], [address] [place] [address] Neutrophils/100 WBC (Bld) 62.6 % Normal [facility] Comment on above: Performed By: #### Laura MP, CBCA, 1987-08, 77799-3 #### [facility] ([id number]) [address] [place] [address] 15313 #### [id number] #### [facility] ([id number]) [address] [place] [address], [address] [place] [address] Platelet mean volume (Bld) [Entitic vol] 8.6 fL Normal 7-12 [facility] Comment on above: Performed By: #### B MP, CBCA, 1987-08, 39851-6 #### [facility] ([id number]) [address] [place] [address] 45762 #### [id number] #### [facility] ([id number]) [address] [place] [address], [address] [place] [address] Platelets (Bld) [#/Vol] 247 10*3/uL Normal 150-450 [facility] Comment on above: Performed By: #### B MP, CBCA, 1987-08, 90075-5 #### [facility] ([id number]) [address] [place] [address] 57348 #### 34258-1 #### [facility] ([id number]) 0 [facility] [address] [place] [address] RBC COUNT 4.51 X10E12/L Normal 4.10-5.70 [facility] Comment on above: Performed By: #### JAMES Sanchez MP, 1987-08, 87072-2 #### [facility] ([id number]) [address] [place] [address] 05648 #### 95982-9 #### [facility] ([id number]) [address] [address] WBC (Bld) [#/Vol] 8.5 10*3/uL Normal 4.0-11.0 [facility] Comment on above: Performed By: #### JAMES Sanchez MP, 1987-08, 79362-3 #### [facility] ([id number]) [address] [place] [address] 87186 #### 98735-4 #### [facility] ([id number]) [address] [place] [address] CREATININEon 10-23-2023 Creatinine [Mass/Vol] 2.69 mg/dL High 0.70-1.20 [facility] Comment on above: Result Comment: METH OD TRACEABLE TO IDMS STANDARD Performed By: #### B JAMES RONDON, 1987-08, 53256-5 #### [facility] ([id number]) [address] [place] [address] 99031 #### 87898-5 #### [facility] ([id number]) 0 [facility], [address] [address] GFR/1.73 sq M.predicted among non-blacks MDRD (S/P/Bld) [Vol rate/Area] 26 mL/min/{1.73_m2} Low >59 [facility] Comment on above: Result Comment: Reported eGFR is based on the CKD-EPI 2020 equation that does not use a race coefficient. Performed By: #### B JAMES RONDON, 1987-08, 53946-1 #### [facility] ([id number]) [address] [place] [address] 10400 #### 38592-9 #### [facility] ([id number]) [address] [facility], [address] [place] [address] Calcium.ionized (Bld) [Moles /Vol]on 10-23-2023 PORTABLE ICA 4.8 mg/dL Normal 4.5-5.3 [facility] Comment on above: Performed By: #### B JAMES RONDON, 1987-08, #### [facility] ([id number]) [address] [place] [address] 43656 #### 59122-8 #### [facility] ([id number]) [address] [place] [address], [address] [place] [address] ELECTROLYTESon 10-23-2023 Anion gap [Moles/Vol] 5 mmol/L Normal 5-15 [facility] Comment on above: Performed By: #### JAMES Sanchez MP, 1987-08, #### [facility] ([id number]) [address] [place] [address] 87892 #### 26978-7 #### [facility] ([id number]) [facility], [address] [place] [address] Chloride [Moles/Vol] 108 mmol/L Normal 98-109 [facility] Comment on above: Performed By: #### JAMES Sanchez MP, 1987-08, 96222-7 #### [facility] ([id number]) [address] [place] [address] 58708 #### 30318-6 #### [facility] ([id number]) [address] [place] [address] CO2 [Moles/Vol] 18 mmol/L Low 22-32 [facility] Comment on above: Performed By: #### B JAMES RONDON, 1987-08, 84118-4 #### [facility] ([id number]) [address] [place] [address] 15497 #### 04739-4 #### [facility] ([id number]) [address] [facility] [address] [place] [address] Potassium [Moles/Vol] 4.1 mmol/L Normal 3.5-5.0 [facility] Comment on above: Performed By: #### B JAMES RONDON, 1987-08, 65571-7 #### [facility] ([id number]) [address] [place] [address] 16303 #### 37850-3 #### [facility] ([id number]) [address] [facility] [place] [address] Sodium [Moles/Vol] 131 mmol/L Low 134-146 [facility] Comment on above: Performed By: #### JAMES Sanchez MP, 1987-08, 53623-8 #### [facility] ([id number]) [address] [place] [address] 37117 #### 35229-8 #### [facility] ([id number]) [address] [facility] [place] [address] ESR Photometric method (Bld) [Velocity]on 10-23-2023 ESR, ERYTHROCYTE SEDIMENTATION RATE 89 mm/h High 0-20 [facility] Comment on above: Performed By: #### JAMES Sanchez MP, 1987-08, 98570-2 #### [facility] ([id number]) [address] [place] [address] 38540 #### 42923-9 #### [facility] ([id number]) [address] [facility], [address] [place] [address] HGB A1C (GLYCO-HGB)on 2023 Glucose [Mass/Vol] 235 mg/dL Normal [facility] Comment on above: Performed By: #### B ALCON, CBCA, 1987-08, 55628-4 #### [facility] ([id number]) [address] [place] [address] 60698 #### 13470-7 #### [facility] ([id number]) [address] [address] HbA1c (Bld) [Mass fraction] 9.8 % High 4.4-5.6 [facility] Comment on above: Result Comment: NOTE ADA Guidelines Result HgbA1c Normal : less than 5.7 % Prediabetes : 5.7 % to 6.4 % Diabetes : > 6.4 % Use with caution in patients with abnormal hemoglobin variants as the half-life of red blood cells and in vivo glycation rates are affected. Performed By: #### B ALCON, CBCA, 1987-08, 57176-9 #### [facility] ([id number]) [address] [place] [address] 68064 #### 06507-9 #### [facility] ([id number]) [address] [facility], [address] [place] [address] LIVER PANELon 10-23-2023 Albumin [Mass/Vol] 2.8 g/dL Low 3.2-5.3 [facility] Comment on above: Performed By: #### B MP, CBCA, 1987-08, #### [facility] ([id number]) [address] [place] [address] 75568 #### 32054-4 #### [facility] ([id number]) [address] [facility] [place] [address] ALP [Catalytic activity/Vol] 86 U/L Normal 39-130 [facility] Comment on above: Performed By: #### Laura RONDON CBCA, 1987-08, 94786-1 #### [facility] ([id number]) [address] [place] [address] 67663 #### 48106-5 #### [facility] ([id number]) [address] [facility] [place] [address] ALT [Catalytic activity/Vol] 19 U/L Normal 0-40 [facility] Comment on above: Performed By: #### Laura RONDON CBCA, 1987-08, 59945-1 #### [facility] ([id number]) [address] [place] [address] 30447 #### 05373-0 #### [facility] ([id number]) [address] [facility], [address] [place] [address] AST [Catalytic activity/Vol] 15 U/L Normal 0-41 [facility] Comment on above: Performed By: #### Laura RONDON CBCA, 1987-08, 83292-3 #### [facility] ([id number]) [address] [place] [address] 56124 #### 67676-1 #### [facility] ([id number]) [address] [facility], [address] [place] [address] Bilirubin [Mass/Vol] 0.5 mg/dL Normal 0.3-1.2 [facility] Comment on above: Performed By: #### Laura RONDON CBCA, 1987-08, 75135-9 #### [facility] ([id number]) [address] [place] [address] 96962 #### 09912-9 #### [facility] ([id number]) [address] [facility], [address] [place] [address] Bilirubin.indirect [Mass/Vol] mg/dL Normal 0.0-0.4 [facility] Comment on above: Performed By: #### B SEVEN RONDONA, 1987-08, 02452-6 #### [facility] ([id number]) [address] [place] [address] 22764 #### 26131-3 #### [facility] ([id number]) [address] [facility], [address] [place] [address] Protein [Mass/Vol] 6.4 g/dL Normal 6.0-8.0 [facility] Comment on above: Performed By: #### B ALCON CBCA, 1987-08, 14641-1 #### [facility] ([id number]) [address] [place] [address] 14374 #### 41806-6 #### [facility] ([id number]) [address] [facility], [address] [place] [address] Lipid 1996 panelon 4 Cholesterol [Mass/Vol] 135 mg/dL Low 150-200 [facility] Comment on above: Performed By: #### Laura RONDON CBCA, 1987-08, 36183-1 #### [facility] ([id number]) [address] [place] [address] 66852 #### 92944-2 #### [facility] ([id number]) [address] [facility] [place] [address] Cholesterol in HDL [Mass/Vol] 40 mg/dL Normal >39 [facility] Comment on above: Result Comment: HDL <40 mg/dL - High Risk HDL > or = 40mg/dL- Desirable HDL >60 mg/dL - Negative Risk Performed By: #### JAMES Sanchez MP, 1987-08, 10879-2 #### [facility] ([id number]) [address] [place] [address] 38015 #### 00690-1 #### [facility] ([id number]) [address] [facility] [place] [address] Cholesterol in LDL [Mass/Vol] 57 mg/dL Normal <130 [facility] Comment on above: Result Comment: LDL <100 mg/dL - Desirable LDL >160 mg/dL - High Risk Performed By: #### JAMES Sanchez MP, 1987-08, 30310-6 #### [facility] ([id number]) [address] [place] [address] 07673 #### 66578-9 #### [facility] ([id number]) [address] [facility] [place] [address] Cholesterol in VLDL [Mass/Vol] 38 mg/dL High 0-30 [facility] Comment on above: Performed By: #### JAMES Sanchez MP, 1987-08, 75926-8 #### [facility] ([id number]) [address] [place] [address] 90561 #### 13478-0 #### [facility] ([id number]) [address] [facility] [place] [address] CHOLESTEROL:HDL 3.4 Normal 1.0-5.0 [facility] Comment on above: Performed By: #### [place], 87103-7 #### [facility] ([id number]) [address] [place] [address] #### 02866-2 #### [facility] ([id number]) [address] [place] [address], [address] [place] [address] Triglyceride [Mass/Vol] 192 mg/dL High 27-150 [facility] Comment on above: Performed By: #### B ALCON CBCA, 1987-08, 32211-7 #### [facility] ([id number]) [address] [place] [address] 12826 #### 92046-3 #### [facility] ([id number]) [address] [place] [address], [address] [place] [address] MAGNESIUMon 10-23-2023 Magnesium [Mass/Vol] 2.1 mg/dL Normal 1.8-2.6 [facility] Comment on above: Performed By: #### B ALCON CBCA, 1987-08, 85993-7 #### [facility] ([id number]) [address] [place] [address] 60856 #### 95891-1 #### [facility] ([id number]) [address] [place] [address], [facility] [address] [place] [address] Natriuretic peptide.B prohor adrianne N-Terminal [place] [Mass/Vol]on 10-23-2023 Natriuretic peptide B (Bld) [Mass/Vol] 1528 pg/mL High <=88 [facility] Comment on above: Result Comment: NOTE [...] absence of renal failure. Test Performed by: [address] [address] Elementary Education Tutor: Brittani Nieves Ph.D.; CLIA# [id number] Performed By: #### B JAMES RONDON, 1987-08, 77555-5 #### [facility] ([id number]) [address] [place] [address] 88550 #### 93164-5 #### [facility] ([id number]) [address] [facility], [address] [place] [address] Prostate specific Ag [Mass/V ol]on 10-23-2023 PSA SCREEN 1.65 ng/mL Normal 0.00-4.00 [facility] Comment on above: Result Comment: The method used for this test is [employer] DXI chemiluminescent immunoassay. Values obtained by different assay methods cannot be used interchangeably. Performed By: #### B JAMES RONDON, 1987-08, #### [facility] ([id number]) [address] [place] [address] 80819 #### 43923-1 #### [facility] ([id number]) [address] [facility] [place] [address] Vitamin D+Metabolites [Mass/ Vol]on 10-23-2023 VITAMIN D 25 HYD TOT 8.3 ng/mL Low 30-100 [facility] Comment on above: Result Comment: Vitamin D status 25 [place] Vitamin D Deficiency <20 ng/mL Insufficiency 20-29 ng/mL Sufficiency 30-100 ng/mL Toxicity >100 ng/mL NOTE: A pediatric reference range has not been established by the planning rn of this kit. The [place] [employer] recommends a Vitamin D level of = or >20ng/mL in infants and children. Performed By: #### B JAMES RONDON, 1987-08, 04191-0 #### [facility] ([id number]) [address] [place] [address] 48329 #### 22948-8 #### [facility] ([id number]) [address], [address] [place] [address] BLOOD UREA NITROGENon 2023 Urea nitrogen [Mass/Vol] 33 mg/dL High 5-27 [facility] Comment on above: Performed By: #### B JAMES RONDON, 1987-08, 52318-3 #### [facility] ([id number]) [address] [place] [address] 34617 #### 83029-8 #### [facility] ([id number]) [address] [place] [address] CREATININEon 09-03-2023 Creatinine [Mass/Vol] 2.42 mg/dL High 0.70-1.20 [facility] Comment on above: Result Comment: METH OD TRACEABLE TO IDMS STANDARD Performed By: #### B JAMES RONDON, 1987-08, 73431-0 #### [facility] ([id number]) [address] [place] [address] 97572 #### 21483-4 #### [facility] ([id number]) [address] [address] GFR/1.73 sq M.predicted among non-blacks MDRD (S/P/Bld) [Vol rate/Area] 29 mL/min/{1.73_m2} Low >59 [facility] Comment on above: Result Comment: Reported eGFR is based on the CKD-EPI 2020 equation that does not use a race coefficient. Performed By: #### B JAMES RONDON, 1987-08, 06194-5 #### [facility] ([id number]) [address] [place] [address] 06754 #### 73794-0 #### [facility] ([id number]) [address], [address] [place] [address] ELECTROLYTESon 09-03-2023 Anion gap [Moles/Vol] 7 mmol/L Normal 5-15 [facility] Comment on above: Performed By: #### Laura RONDON CBCA, 1987-08, 23692-6 #### [facility] ([id number]) [address] [place] [address] 65018 #### 67069-8 #### [facility] ([id number]) [address], [address] [place] [address] Chloride [Moles/Vol] 106 mmol/L Normal 98-109 [facility] Comment on above: Performed By: #### SEVEN Sanchez MPA, 1987-08, 62893-4 #### [facility] ([id number]) [address] [place] [address] 99732 #### 05116-6 #### [facility] ([id number]) [address], [address] [place] [address] CO2 [Moles/Vol] 21 mmol/L Low 22-32 [facility] Comment on above: Performed By: #### Laura RONDON CBCA, 1987-08, 02070-7 #### [facility] ([id number]) [address] [place] [address] 31983 #### 64380-6 #### [facility] ([id number]) [address] [place] [address] Potassium [Moles/Vol] 4.2 mmol/L Normal 3.5-5.0 [facility] Comment on above: Performed By: #### SEVEN Sanchez MPA, 1987-08, 32792-1 #### [facility] ([id number]) [address] [place] [address] 13217 #### 20418-6 #### [facility] ([id number]) [address], [address] [place] [address] Sodium [Moles/Vol] 134 mmol/L Normal 134-146 [facility] Comment on above: Performed By: #### JAMES Sanchez MP, 1987-08, 07619-8 #### [facility] ([id number]) [address] [place] [address] 19785 #### 55730-9 #### [facility] ([id number]) [address] [place] [address], [address] [place] [address] Natriuretic peptide.B prohor adrianne N-Terminal [Mass/Vol]on 09-03-2023 NT Pro BNP See Below Normal [facility] Comment on above: Result Comment: NOTE TEST RESULT FLAG UNIT REF.RANGE ----- PRO B Natr Peptide 933 H pg/mL <125 Test Performed By: [facility] [address] [place] [address] Botany Technician: Charlotte Hart III #[id number] Performed By: #### JAMES Sanchez MP, 1987-08, 47076-9 #### [facility] ([id number]) [address] [place] [address] 35637 #### 03549-2 #### [facility] ([id number]) [address] [place] [address], [address] [place] [address] BLOOD UREA NITROGENon 2023 Urea nitrogen [Mass/Vol] 38 mg/dL High 5-27 [facility] Comment on above: Performed By: #### JAMES Sanchez MP, 1987-08, 33114-8 #### [facility] ([id number]) [address] [place] [address] 36580 #### 36053-1 #### [facility] ([id number]) [address], [address] [place] [address] CREATININEon 07-31-2023 Creatinine [Mass/Vol] 2.76 mg/dL High 0.70-1.20 [facility] Comment on above: Result Comment: METH OD TRACEABLE TO IDMS STANDARD Performed By: #### B JAMES RONDON, 1987-08, 17287-5 #### [facility] ([id number]) [address] [place] [address] 50975 #### 69350-6 #### [facility] ([id number]) [address] [facility] [address] [place] [address] GFR/1.73 sq M.predicted among non-blacks MDRD (S/P/Bld) [Vol rate/Area] 25 mL/min/{1.73_m2} Low >59 [facility] Comment on above: Result Comment: Reported eGFR is based on the CKD-EPI 2020 equation that does not use a race coefficient. Performed By: #### B JAMES RONDON, 1987-08, 19985-1 #### [facility] ([id number]) [address] [place] [address] 00433 #### 45778-3 #### [facility] ([id number]) [address], [address] [place] [address] ELECTROLYTESon 07-31-2023 Anion gap [Moles/Vol] 7 mmol/L Normal 5-15 [facility] Comment on above: Performed By: #### B JAMES RONDON, 1987-08, 51176-0 #### [facility] ([id number]) [address] [place] [address] 32306 #### 05036-1 #### [facility] ([id number]) [address], [address] [place] [address] Chloride [Moles/Vol] 104 mmol/L Normal 98-109 [facility] Comment on above: Performed By: #### B ALCON, CBCA, 1987-08, 92497-9 #### [facility] ([id number]) [address] [place] [address] 70815 #### 28128-2 #### [facility] ([id number]) [address] [place] [address] CO2 [Moles/Vol] 21 mmol/L Low 22-32 [facility] Comment on above: Performed By: #### B ALCON, CBCA, 1987-08, 72436-2 #### [facility] ([id number]) [address] [place] [address] 44802 #### 33549-5 #### [facility] ([id number]) [address] [place] [address] Potassium [Moles/Vol] 4.3 mmol/L Normal 3.5-5.0 [facility] Comment on above: Performed By: #### Laura RONDON CBCA, 1987-08, 59218-2 #### [facility] ([id number]) [address] [place] [address] 18961 #### 31743-3 #### [facility] ([id number]) [address] [place] [address] Sodium [Moles/Vol] 132 mmol/L Low 134-146 [facility] Comment on above: Performed By: #### Laura RONDON CBCA, 1987-08, 95278-0 #### [facility] ([id number]) [address] [place] [address] 63223 #### 52321-4 #### [facility] ([id number]) [address] [place] [address] Natriuretic peptide.B melony silver N-Terminal [Mass/Vol]on 07-31-2023 NT Pro BNP See Below Normal [facility] Comment on above: Result Comment: NOTE TEST RESULT FLAG UNIT REF.RANGE ----- PRO B Natr Peptide 1296 H pg/mL <125 Test Performed By: [facility] [address] [place] [address] Botany Technician: Tyler Valle III, M.D. CLIA #[id number] Performed By: #### B JAMES RONDON, 1987-08, 18711-2 #### [facility] ([id number]) [address] [place] [address] #### 63353-1 #### [facility] ([id number]) [address] [place] [address], [place] [address] BLOOD UREA NITROGENon 2023 Urea nitrogen [Mass/Vol] 34 mg/dL High 5-27 [facility] Comment on above: Performed By: #### JAMES Sanchez MP, 1987-08, 57942-3 #### [facility] ([id number]) [address] [place] [address] 44775 #### 03602-8 #### [facility] ([id number]) [address] [place] [address], [facility] [address] [place] [address] CREATININEon 07-02-2023 Creatinine [Mass/Vol] 3.13 mg/dL High 0.70-1.20 [facility] Comment on above: Result Comment: METH OD TRACEABLE TO IDMS STANDARD Performed By: #### B JAMES RONDON, 80404-2 #### [facility] ([id number]) [address] [place] [address] 55411 #### 54875-9 #### [facility] ([id number]) [address] [place] [address] GFR/1.73 sq M.predicted among non-blacks MDRD (S/P/Bld) [Vol rate/Area] 22 mL/min/{1.73_m2} Low >59 [facility] Comment on above: Result Comment: Reported eGFR is based on the CKD-EPI 2020 equation that does not use a race coefficient. Performed By: #### B JAMES RONDON, 1987-08, 65444-6 #### [facility] ([id number]) [address] [place] [address] #### [id number] #### [facility] ([id number]) [address], [address] [place] [address] ELECTROLYTESon 07-02-2023 Anion gap [Moles/Vol] 8 mmol/L Normal 5-15 [facility] Comment on above: Performed By: #### B JAMES RONDON, 1987-08, 65989-4 #### [facility] ([id number]) [address] [place] [address]63 #### [id number] #### [facility] ([id number]) [address], [address] [place] [address] Chloride [Moles/Vol] 106 mmol/L Normal 98-109 [facility] Comment on above: Performed By: #### B JAMES RONDON, 1987-08, 81492-2 #### [facility] ([id number]) [address] [place] [address] #### [id number] #### [facility] ([id number]) [address], [address] [place] [address] CO2 [Moles/Vol] 20 mmol/L Low 22-32 [facility] Comment on above: Performed By: #### B JAMES RONDON, 1987-08, 66518-7 #### [facility] ([id number]) [address] [place] [address] #### [id number] #### [facility] ([id number]) [address], [address] [place] [address] Potassium [Moles/Vol] 4.7 mmol/L Normal 3.5-5.0 [facility] Comment on above: Performed By: #### B ALCON, [facility], 1987-08, 65365-4 #### [facility] ([id number]) [address] [place] [address] #### [id number] #### [facility] ([id number]) [address], [address] [place] [address] Sodium [Moles/Vol] 134 mmol/L Normal 134-146 [facility] Comment on above: Performed By: #### B ALCON, CBCA, 1987-08, 40142-7 #### [facility] ([id number]) [address] [place] [address] #### 19827-7 #### [facility] ([id number]) [address] [place] [address] Natriuretic peptide.B prohor adrianne N-Terminal [Mass/Vol]on 07-02-2023 NT Pro BNP See Below Normal [facility] Comment on above: Result Comment: NOTE TEST RESULT FLAG UNIT REF.RANGE ----- PRO B Natr Peptide 413 H pg/mL <125 Test Performed By: [facility] Galenea [address] [place] [address] Botany Technician: Tyler Valle III, M.D. [place] #[id number] Performed By: #### B JAMES RONDON, 1987-08, 30938-5 #### [facility] ([id number]) [address] [place] [address] 29789 #### 86034-2 #### [facility] ([id number]) [address] [place] [address] BLOOD UREA NITROGENon 2023 Urea nitrogen [Mass/Vol] 33 mg/dL High 5-27 [facility] Comment on above: Performed By: #### B JAMES RONDON, 1987-08, 42727-5 #### [facility] ([id number]) [address] [place] [address] 68661 #### 31009-8 #### [facility] ([id number]) [address] [facility], [address] [place] [address] CREATININEon 06-04-2023 Creatinine [Mass/Vol] 2.37 mg/dL High 0.70-1.20 [facility] Comment on above: Result Comment: METH OD TRACEABLE TO IDMS STANDARD Performed By: #### JAMES Sanchez MP, 1987-08, 83636-2 #### [facility] ([id number]) [address] [place] [address] 21623 #### 32068-0 #### [facility] ([id number]) [address] [facility], [address] [place] [address] GFR/1.73 sq M.predicted among non-blacks MDRD (S/P/Bld) [Vol rate/Area] 30 mL/min/{1.73_m2} Low >59 [facility] Comment on above: Result Comment: Reported eGFR is based on the CKD-EPI 2020 equation that does not use a race coefficient. Performed By: #### JAMES Sanchez MP, 1987-08, 91059-5 #### [facility] ([id number]) [address] [place] [address] 98406 #### 89503-0 #### [facility] ([id number]) [address] [place] [address] ELECTROLYTESon 06-04-2023 Anion gap [Moles/Vol] 7 mmol/L Normal 5-15 [facility] Comment on above: Performed By: #### Laura RONDON CBCA, 1987-08, 78256-9 #### [facility] ([id number]) [address] [place] [address] 41577 #### 72165-2 #### [facility] ([id number]) [address] [place] [address] Chloride [Moles/Vol] 106 mmol/L Normal 98-109 [facility] Comment on above: Performed By: #### Laura RONDON CBCA, 1987-08, 87961-0 #### [facility] ([id number]) [address] [place] [address] 62186 #### 32313-0 #### [facility] ([id number]) [address] [place] [address] CO2 [Moles/Vol] 20 mmol/L Low 22-32 [facility] Comment on above: Performed By: #### Laura RONDON CBCA, 1987-08, 14277-5 #### [facility] ([id number]) [address] [place] [address] 11641 #### 73358-6 #### [facility] ([id number]) [address] [place] [address] Potassium [Moles/Vol] 4.6 mmol/L Normal 3.5-5.0 [facility] Comment on above: Performed By: #### Laura RONDON CBCA, 1987-08, #### [facility] ([id number]) [address] [place] [address] 60498 #### 85533-5 #### [facility] ([id number]) [address] [place] [address], [address] [place] [address] Sodium [Moles/Vol] 133 mmol/L Low 134-146 [facility] Comment on above: Performed By: #### Laura RONDON CBCA, 1987-08, 21816-4 #### [facility] ([id number]) [address] [place] [address] 69976 #### 93874-6 #### [facility] ([id number]) [address] [place] [address], [address] [address] Natriuretic peptide.B prohor adrianne N-Terminal [Mass/Vol]on 06-04-2023 NT Pro BNP See Below Normal [facility] Comment on above: Result Comment: NOTE TEST RESULT FLAG UNIT REF.RANGE ----- PRO B Natr Peptide 526 H pg/mL <125 Test Performed By: [place] [address] Botany Technician: Charlotte Hart III #[id number] Performed By: #### Laura RONDON CBCA, 1987-08, 71337-8 #### [facility] ([id number]) [address] [place] [address] 00915 #### 27858-9 #### [facility] ([id number]) [address] [place] [address], [address] [place] [address] Cult,Urineon 06-03-2023 Cult,Urine Specimen Description .VOIDED URINE [...] Tobramycin 4 SUSCEPTIBLE Trimethoprim/Sulfa >=320 RESIST[address] [facility] Comment on above: Performed By: #### U RC #### [facility] [address] [place] [address] Elementary Education Tutor: Griffin Carrion MD [facility] [address] [place] [address] [place] [address] Elementary Education Tutor: Jameson Aaron MD UA w/Reflex Cultureon 2023 Bilirubin, SemiQt,Ur Negative Normal NEG [facility] Comment on above: Performed By: #### U AX, UMICAO #### [address] [place] [address] Elementary Education Tutor: Jameson Aaron MD Blood, Urine TRACE Abnormal NEG [facility] Comment on above: Performed By: #### U AX, UMICAO #### [facility] [address] [place] [address] Elementary Education Tutor: Jameson Aaron MD Clarity (U) SLIGHTLY CLOUDY Abnormal CLEAR [facility] Comment on above: Performed By: #### U AX, UMICAO #### [facility] [address] [place] [address] [place] [address] Elementary Education Tutor: Jameson Aaron MD Color (U) Yellow Normal YEL [facility] Comment on above: Performed By: #### U AX, UMICAO #### [facility] [address] [place], [place] [address] Elementary Education Tutor: Jameson Aaron MD Glucose Ql (U) 3+ mg/dL Abnormal NEG [facility] Comment on above: Performed By: #### U AX, UMICAO #### [facility] [address] [place], [place] [address] Elementary Education Tutor: Jameson Aaron MD Ketones Ql (U) Negative Normal NEG [facility] Comment on above: Performed By: #### U AX, UMICAO #### [facility] [address] [place], [place] 8[address]383 Elementary Education Tutor: Jameson Aaron MD Leukocyte esterase Test strip Ql (U) TRACE Abnormal NEG [facility] Comment on above: Performed By: #### U AX, UMICAO #### [address] [place], [place] 5[address]383 Elementary Education Tutor: Jameson Aaron MD Nitrite,Ur Negative Normal NEG [facility] Comment on above: Performed By: #### U AX, UMICAO #### [address] [place], [place] 85[address] Elementary Education Tutor: Jameson Aaron MD PH,Ur 5.5 Normal 5.0-9.[address] [facility] Comment on above: Performed By: #### U AX, UMICAO #### [facility] [address] [place] [address] [place] [address] Elementary Education Tutor: Jameson Aaron MD Protein Ql (U) 2+ mg/dL Abnormal NEG [facility] Comment on above: Performed By: #### U AX, UMICAO #### [facility] [address] [place], [place] [address] Elementary Education Tutor: Jameson Aaron MD Spec. [place],Ur 1.025 High 1.010-1.[address] [facility] Comment on above: Performed By: #### U AX, UMICAO #### [facility] [address] [place] 3709483 Elementary Education Tutor: Jameson Aaron MD Urobilinogen,Ur Normal Normal 0.0-1.[address] [facility] Comment on above: Performed By: #### U AX, UMICAO #### [facility] [address] [place], [place] 57[address]383 Elementary Education Tutor: Jameson Aaron MD Urinalysis,Microon 4 Bacteria 2+ Abnormal NONE [facility] Comment on above: Performed By: #### U AX, UMICAO #### [facility] [address] [place], [place] [address] Elementary Education Tutor: Jameson Aaron MD Epithelial cells LM Ql (Urine sed) 0 TO 2 Normal 0-[address] [place] [address] Comment on above: Performed By: #### U AX, UMICAO #### [facility] [address] [place], [place] [address]83 Elementary Education Tutor: Jameson Aaron MD Epithelial, Renal 0 TO [address] [facility] Comment on above: Performed By: #### U AX, UMICAO #### [facility] [address] [place], [place] [address] Elementary Education Tutor: Jameson Aaron MD Urine RBC's 0 TO 2 Normal 0-[address] [facility] Comment on above: Performed By: #### U AX, UMICAO #### [facility] [address] [place], [facility] Elementary Education Tutor: Jameson Aaron MD Urine WBC's 10 TO 20 Normal 0-[address] [facility] Comment on above: Performed By: #### U AX, UMICAO #### [facility] [address] [place], [place] [address]83 Elementary Education Tutor: Jameson Aaron MD Yeast PRESENCE NOTED Abnormal [facility] Comment on above: Performed By: #### U AX, UMICAO #### [facility] [address] [place] [address] Elementary Education Tutor: Jameson Aaron MD BLOOD UREA NITROGENon 2023 Urea nitrogen [Mass/Vol] 44 mg/dL High 5-27 [facility] Comment on above: Performed By: #### E LEC, 3094-0, SPOOL TENDER, 82501-3 #### [facility] ([id number]) [address] [place] [address] 95623 #### 98813-9, HA1C #### [facility] ([id number]) [address] [facility], [address] [place] [address] CREATININEon 05-06-2023 Creatinine [Mass/Vol] 2.71 mg/dL High 0.70-1.20 [facility] Comment on above: Result Comment: METH OD TRACEABLE TO IDMS STANDARD Performed By: #### E LEC, 3094-0, SPOOL TENDER, 37865-0 #### [facility] ([id number]) [address] [place] [address] 85594 #### 97805-9, HA1C #### [facility] ([id number]) [address] [facility], [address] [address] GFR/1.73 sq M.predicted among non-blacks MDRD (S/P/Bld) [Vol rate/Area] 26 mL/min/{1.73_m2} Low >59 [facility] Comment on above: Result Comment: Reported eGFR is based on the CKD-EPI 2020 equation that does not use a race coefficient. Performed By: #### E LEC, 3094-0, SPOOL TENDER, 21878-4 #### [facility] ([id number]) [address] [place] [address] 32907 #### 81891-5, HA1C #### [facility] ([id number]) [address] [place] [address] ELECTROLYTESon 05-06-2023 Anion gap [Moles/Vol] 11 mmol/L Normal 5-15 [facility] Comment on above: Performed By: #### E LEC, 3094-0, SPOOL TENDER, 57568-5 #### [facility] ([id number]) [address] [place] [address] 30198 #### 39272-8, HA1C #### [facility] ([id number]) [address] [place] [address] Chloride [Moles/Vol] 101 mmol/L Normal 98-109 [facility] Comment on above: Performed By: #### E LEC, 3094-0, SPOOL TENDER, 62349-1 #### [facility] ([id number]) [address] [place] [address] 28821 #### 00794-0, HA1C #### [facility] ([id number]) [address] [place] [address] CO2 [Moles/Vol] 18 mmol/L Low 22-32 [facility] Comment on above: Performed By: #### E LEC, 3094-0, SPOOL TENDER, 80305-6 #### [facility] ([id number]) [address] [place] [address] 75584 #### 69291-8, HA1C #### [facility] ([id number]) [address] [place] [address] Potassium [Moles/Vol] 4.4 mmol/L Normal 3.5-5.0 [facility] Comment on above: Performed By: #### E LEC, 3094-0, SPOOL TENDER, 60392-1 #### [facility] ([id number]) [address] [place] [address] 43000 #### 27668-4, HA1C #### [facility] ([id number]) [address] [place] [address] Sodium [Moles/Vol] 130 mmol/L Low 134-146 [facility] Comment on above: Performed By: #### Tiki LEC, 3094-0, SPOOL TENDER, 25193-1 #### [facility] ([id number]) [address] [place] [address] #### 66133-5, HA1C #### [facility] ([id number]) [address] [facility] [facility] [address] [place] [address] HGB A1C (GLYCO-HGB)on 2023 Glucose [Mass/Vol] 260 mg/dL Normal [facility] Comment on above: Performed By: #### Laura RONDON, CBCA, 1987-08, 54687-9 #### [facility] ([id number]) [address] [place] [address] 09216 #### 90282-0 #### [facility] ([id number]) [address] [place] [address], [facility] [address] [place] [address] HbA1c (Bld) [Mass fraction] 10.7 % High 4.4-5.6 [facility] Comment on above: Result Comment: NOTE ADA Guidelines Result HgbA1c Normal : less than 5.7 % Prediabetes : 5.7 % to 6.4 % Diabetes : > 6.4 % Use with caution in patients with abnormal hemoglobin variants as the half-life of red blood cells and in vivo glycation rates are affected. Performed By: #### Laura MP, CBCA, 1987-08, 33729-2 #### [facility] ([id number]) [address] [place] [address] 34077 #### 12824-9 #### [facility] ([id number]) [address] [address] [address] [place] [address] Lipid 1996 panelon 4 Cholesterol [Mass/Vol] 205 mg/dL High 150-200 [facility] Comment on above: Performed By: #### Tiki LEC, 3094-0, SPOOL TENDER, 46066-9 #### [facility] ([id number]) [address] [place] [address] 27279 #### 86830-6, HA1C #### [facility] ([id number]) [address] [facility], [address] [place] [address] Cholesterol in HDL [Mass/Vol] 35 mg/dL Low >39 [facility] Comment on above: Result Comment: HDL <40 mg/dL - High Risk HDL > or = 40mg/dL- Desirable HDL >60 mg/dL - Negative Risk Performed By: #### Tiki LEC, 3094-0, SPOOL TENDER, 93524-8 #### [facility] ([id number]) [address] [place] [address] 74853 #### 19928-9, HA1C #### [facility] ([id number]) [address] [place] [address] Cholesterol in LDL [Mass/Vol] 120 mg/dL Normal <130 [facility] Comment on above: Result Comment: LDL <100 mg/dL - Desirable LDL >160 mg/dL - High Risk Performed By: #### Tiki LEC, 3094-0, SPOOL TENDER, 32511-1 #### [facility] ([id number]) [address] [place] [address] 37499 #### 16911-8, HA1C #### [facility] ([id number]) [address] [place] [address], [address] [place] [address] Cholesterol in VLDL [Mass/Vol] 50 mg/dL High 0-30 [facility] Comment on above: Performed By: #### E LEC, 3094-0, SPOOL TENDER, 24890-1 #### [facility] ([id number]) [address] [place] [address] 66869 #### 23985-0, HA1C #### [facility] ([id number]) [address] [place] [address], [address] [place] [address] CHOLESTEROL:HDL 5.9 High 1.0-5.0 [facility] Comment on above: Performed By: #### E LEC, 3094-0, SPOOL TENDER, 31442-1 #### [facility] ([id number]) [address] [place] [address] 82540 #### 77469-5, HA1C #### [facility] ([id number]) [address] [place] [address], [address] [place] [address] Triglyceride [Mass/Vol] 248 mg/dL High 27-150 [facility] Comment on above: Performed By: #### Tiki LEC, 3094-0, SPOOL TENDER, 20232-8 #### [facility] ([id number]) [address] [place] [address] 94502 #### 18123-0, HA1C #### [facility] ([id number]) [address] [place] [address], [address] [place] [address] MICROALBUMIN - ALBUMIN:CREAT ININE URINE RATIOon 05-06-2023 ALB/CREAT RATIO 2747.0 mg/g creat High 0.0-30.0 [facility] Comment on above: Performed By: #### B MP, CBCA, 1987-08, 41313-6 #### [facility] ([id number]) [address] [place] [address] 98492 #### 59083-9 #### [facility] ([id number]) [address] [place] [address] Albumin DL <= 20 mg/L (U) [Mass/Vol] 195.2 mg/dL High 0.0-1.9 [facility] Comment on above: Performed By: #### JAMES Sanchez MP, 1987-08, 43401-0 #### [facility] ([id number]) [address] [place] [address] 36641 #### 42052-0 #### [facility] ([id number]) [address] [facility] [place] [address] URINE CREAT 71.06 mg/dL Normal [facility] Comment on above: Performed By: #### JAMES Sanchez MP, 1987-08, 45884-3 #### [facility] ([id number]) [address] [place] [address] 72278 #### 11207-3 #### [facility] ([id number]) [address] [facility] [place] [address] Natriuretic peptide.B prohor adrianne N-Terminal [Mass/Vol]on 05-06-2023 NT Pro BNP See Below Normal [facility] Comment on above: Result Comment: NOTE TEST RESULT FLAG UNIT REF.RANGE ----- PRO B Natr Peptide 314 H pg/mL <125 Test Performed By: [facility] Galenea [address] [place] [address] Botany Technician: Charlotte Hart III #[id number] Performed By: #### JAMES Sanchez MP, 1987-08, 40370-6 #### [facility] ([id number]) [address] [place] [address] 97674 #### 85748-0 #### [facility] ([id number]) [address] [place] [address], [address] [place] [address] URINALYSISon 05-06-2023 Bilirubin Ql (U) Negative Normal NEG [facility] Comment on above: Performed By: #### U A #### [facility] ([id number]) [address] [place] [address] BLOOD/HGB Trace Abnormal NEG [facility] Comment on above: Performed By: #### U A #### [facility] ([id number]) [address] [place] [address] Color (U) YELLOW Normal YELLOW [facility] Comment on above: Performed By: #### U A #### [facility] ([id number]) [address] [place] [address] Glucose Ql (U) >1000 Abnormal NEG [facility] Comment on above: Performed By: #### U A #### [facility] ([id number]) [address] [place] [address] Ketones Ql (U) Negative Normal NEG [facility] Comment on above: Performed By: #### U A #### [facility] ([id number]) [address] [place] [address]703 Leukocyte esterase Test strip Ql (U) Negative Normal NEG [facility] Comment on above: Result Comment: HIGH CONCENTRATIONS OF GLUCOSE MAY DECREASE THE REACTIVITY OF THE DIPSTICK LEUKOCYTE TEST PAD. Performed By: #### U A #### [facility] ([id number]) [address] [place] [address] [place] [address] MUCOUS PRESENT Abnormal NONE [facility] Comment on above: Performed By: #### U A #### [facility] ([id number]) [address] [place] [address] 49091 Nitrite Ql (U) Positive Abnormal NEG [facility] Comment on above: Performed By: #### U A #### [facility] ([id number]) [address] [place] [address] 79828 pH (U) 6.0 [pH] Normal 5.0-8.5 [facility] Comment on above: Performed By: #### U A #### [facility] ([id number]) [address] [place] [address] Protein Ql (U) >300 Abnormal NEG [facility] Comment on above: Performed By: #### U A #### [facility] ([id number]) [address] [place] [address] 28447 R.B.CELLS 5 /hpf Normal 0-5 [facility] Comment on above: Performed By: #### U A #### [facility] ([id number]) [address] [place] [address] 49649 Specific gravity (U) [Rel density] 1.015 Normal 1.003-1.035 [facility] Comment on above: Performed By: #### U A #### [facility] ([id number]) [address] [place] [address] 38503 SQUAMOUS EPITHELIUM 4 /hpf Normal 0-5 [facility] Comment on above: Performed By: #### U A #### [facility] ([id number]) [address] [place] [address] 19032 TURBIDITY HAZY Abnormal CLEAR [facility] Comment on above: Performed By: #### U A #### [facility] ([id number]) [address] [place] [address] 92356 Urobilinogen Qn (U) 0.2 {Chaya'U}/dL Normal <1.1 [facility] Comment on above: Performed By: #### U A #### [facility] ([id number]) [address] [place] [address] 96731 W.B.CELLS >100 High 0-5 [facility] Comment on above: Performed By: #### U A #### [facility] ([id number]) [address] [place] [address] 27480 URINE CULTUREon 05-06-2023 Bacteria identified Cx Nom (U) SPECIMEN NOTES URINE RECEIVED WITHOUT PRESERVATIVE CULTURE RESULTS MULTIPLE SPECIES PRESENT. PROBABLE COLLECTION CONTAMINATION. SUGGEST REPEAT SPECIMEN. URINE RECEIVED WITHOUT PRESERVATIVE-DELAYS IN TRANSPORT MAY AFFECT RESULTS.INTERPRET WITH CAUTION AND CLINICAL CORRELATION IS RECOMMENDED. Normal [facility] Comment on above: Performed By: #### B ALCON CBCA, 1987-08, 21758-4 #### [facility] ([id number]) [address] [place] [address] 28301 #### 85898-4 #### [facility] ([id number]) [address] [place] [address] BASIC METABOLIC PANLon 04-19 Anion gap [Moles/Vol] 6 mmol/L Normal 5-15 [facility] Comment on above: Performed By: #### B ALCON CBCA, 1987-08, 01668-3 #### [facility] ([id number]) [address] [place] [address] 57680 #### 32987-8 #### [facility] ([id number]) [address] [place] [address] Calcium [Mass/Vol] 8.6 mg/dL Normal 8.5-10.5 [facility] Comment on above: Performed By: #### B ALCON CBCA, 1987-08, 24650-1 #### [facility] ([id number]) [address] [place] [address] #### 80601-4 #### [facility] ([id number]) [address] [place] [address] Chloride [Moles/Vol] 101 mmol/L Normal 98-109 [facility] Comment on above: Performed By: #### B JAMES RONDON, 1987-08, 30140-2 #### [facility] ([id number]) [address] [place] [address] 22696 #### 73765-8 #### [facility] ([id number]) [address] [place] [address], [address] [place] [address] CO2 [Moles/Vol] 19 mmol/L Low 22-32 [facility] Comment on above: Performed By: #### JAMES Sanchez MP, 1987-08, 50460-8 #### [facility] ([id number]) [address] [place] [address]3972 #### [id number] #### [facility] ([id number]) [address] [place] [address], [address] [place] [address] Creatinine [Mass/Vol] 2.57 mg/dL High 0.70-1.20 [facility] Comment on above: Result Comment: METH OD TRACEABLE TO IDMS STANDARD Performed By: #### B JAMES RONDON, 1987-08, 11764-6 #### [facility] ([id number]) [address] [place] [address]1107 #### [id number] #### [facility] ([id number]) [address] [facility], [address] [place] [address] GFR/1.73 sq M.predicted among non-blacks MDRD (S/P/Bld) [Vol rate/Area] 27 mL/min/{1.73_m2} Low >59 [facility] Comment on above: Result Comment: Reported eGFR is based on the CKD-EPI 2020 equation that does not use a race coefficient. Performed By: #### JAMES Sanchez MP, 1987-08, 26328-3 #### [facility] ([id number]) [address] [place] [address]2981 #### [id number] #### [facility] ([id number]) [address], [address] [place] [address] Glucose [Mass/Vol] 377 mg/dL High 65-99 [facility] Comment on above: Performed By: #### B JAMES RONDON, 1987-08, 22774-9 #### [facility] ([id number]) [address] [place] [address] 12872 #### 23128-7 #### [facility] ([id number]) [address], [address] [place] [address] Potassium [Moles/Vol] 4.2 mmol/L Normal 3.5-5.0 [facility] Comment on above: Performed By: #### JAMES Sanchez MP, 1987-08, 91675-2 #### [facility] ([id number]) [address] [place] [address] 89562 #### 92969-6 #### [facility] ([id number]) [address], [address] [place] [address] Sodium [Moles/Vol] 126 mmol/L Low 134-146 [facility] Comment on above: Performed By: #### B JAMES RONDON, 1987-08, 12920-8 #### [facility] ([id number]) [address] [place] [address] 91039 #### 58946-8 #### [facility] ([id number]) [address], [address] [place] [address] Urea nitrogen [Mass/Vol] 30 mg/dL High 5-27 [facility] Comment on above: Performed By: #### B MP, CBCA, 1987-08, 77573-1 #### [facility] ([id number]) [address] [place] [address] 38126 #### 28286-2 #### [facility] ([id number]) [address] [place] [address] CBC AND AUTO DIFFon 04-19-20 23 ABSOLUTE BASOPHIL 0.1 X10E9/L Normal 0.0-0.2 [facility] Comment on above: Performed By: #### B ALCON, CBCA, 1987-08, 27123-5 #### [facility] ([id number]) [address] [place] [address] 31392 #### 30392-0 #### [facility] ([id number]) [address] [place] [address] ABSOLUTE NEUTROPHIL 8.8 X10E9/L High 1.5-6.6 [facility] Comment on above: Performed By: #### B ALCON, CBCA, 1987-08, 16031-8 #### [facility] ([id number]) [address] [place] [address] 15980 #### 51497-1 #### [facility] ([id number]) [address], [address] [place] [address] Basophils/100 WBC (Bld) 0.5 % Normal [facility] Comment on above: Performed By: #### B MP, CBCA, 1987-08, 86536-3 #### [facility] ([id number]) [address] [place] [address] 16325 #### 01444-3 #### [facility] ([id number]) [address] [place] [address] Eosinophils (Bld) [#/Vol] 0.3 10*3/uL Normal 0.0-0.4 [facility] Comment on above: Performed By: #### Laura RONDON CBCA, 1987-08, 88748-5 #### [facility] ([id number]) [address] [place] [address] 76137 #### 75381-3 #### [facility] ([id number]) [address] [place] [address] Eosinophils/100 WBC (Bld) 2.6 % Normal [facility] Comment on above: Performed By: #### B ALCON CBCA, 1987-08, #### [facility] ([id number]) [address] [place] [address] 72359 #### 50289-0 #### [facility] ([id number]) [address] [place] [address] Erythrocyte distribution width (RBC) [Ratio] 15.5 % High 11.5-15.0 [facility] Comment on above: Performed By: #### Laura RONDON CBCA, 1987-08, #### [facility] ([id number]) [address] [place] [address] 52254 #### 77618-2 #### [facility] ([id number]) [address] [place] [address] Hematocrit (Bld) [Volume fraction] 36.8 % Low 39-49 [facility] Comment on above: Performed By: #### Laura RONDON CBCA, 1987-08, #### [facility] ([id number]) [address] [place] [address] 55295 #### 27338-6 #### [facility] ([id number]) [address] [place] [address] Hemoglobin (Bld) [Mass/Vol] 12.0 g/dL Low 13.0-17.0 [facility] Comment on above: Performed By: #### B ALCON CBCA, 1987-08, #### [facility] ([id number]) [address] [place] [address] 67832 #### 11549-6 #### [facility] ([id number]) [address] [place] [address] Lymphocytes (Bld) [#/Vol] 1.9 10*3/uL Normal 1.0-3.5 [facility] Comment on above: Performed By: #### Laura RONDON CBCA, 1987-08, #### [facility] ([id number]) [address] [place] [address] 04103 #### 71963-3 #### [facility] ([id number]) [address] [place] [address] Lymphocytes/100 WBC (Bld) 15.1 % Normal [facility] Comment on above: Performed By: #### Laura RONDON CBCA, 1987-08, #### [facility] ([id number]) [address] [place] [address] 42938 #### 75146-3 #### [facility] ([id number]) [address] [place] [address] MCH (RBC) [Entitic mass] 28.2 pg Normal 27-34 [facility] Comment on above: Performed By: #### Laura RONDON CBCA, 1987-08, #### [facility] ([id number]) [address] [place] [address] 84560 #### 25687-0 #### [facility] ([id number]) [address] [place] [address] MCHC (RBC) [Mass/Vol] 32.7 g/dL Normal 32-36 [facility] Comment on above: Performed By: #### B ALCON CBCA, 1987-08, #### [facility] ([id number]) [address] [place] [address] 97153 #### 10187-4 #### [facility] ([id number]) [address] [place] [address] MCV (RBC) [Entitic vol] 86 fL Normal 80-100 [facility] Comment on above: Performed By: #### B ALCON CBCA, 1987-08, #### [facility] ([id number]) [address] [place] [address] 62438 #### 15623-3 #### [facility] ([id number]) [address] [place] [address] Monocytes (Bld) [#/Vol] 1.4 10*3/uL High 0-0.9 [facility] Comment on above: Performed By: #### Laura RONDON CBCA, 1987-08, #### [facility] ([id number]) [address] [place] [address] 07616 #### 32985-1 #### [facility] ([id number]) [address] [place] [address] Monocytes/100 WBC (Bld) 11.2 % Normal [facility] Comment on above: Performed By: #### Laura RONDON CBCA, 1987-08, #### [facility] ([id number]) [address] [place] [address] 23157 #### 52261-0 #### [facility] ([id number]) [address] [place] [address] Neutrophils/100 WBC (Bld) 70.6 % Normal [facility] Comment on above: Performed By: #### Laura RONDON CBCA, 1987-08, #### [facility] ([id number]) [address] [place] [address] 72519 #### 06104-8 #### [facility] ([id number]) [address] [place] [address] Platelet mean volume (Bld) [Entitic vol] 7.6 fL Normal 7-12 [facility] Comment on above: Performed By: #### Laura RONDON, CBCA, 1987-08, #### [facility] ([id number]) [address] [place] [address] 55802 #### 08088-9 #### [facility] ([id number]) [address] [facility], [address] [place] [address] Platelets (Bld) [#/Vol] 325 10*3/uL Normal 150-450 [facility] Comment on above: Performed By: #### Laura RONDON, CBCA, 1987-08, 87158-0 #### [facility] ([id number]) [address] [place] [address] 47121 #### 98249-8 #### [facility] ([id number]) [address] [place] [address] RBC COUNT 4.27 X10E12/L Normal 4.10-5.70 [facility] Comment on above: Performed By: #### Laura RONDON, CBCA, 1987-08, 24157-0 #### [facility] ([id number]) [address] [place] [address] 97128 #### 82722-5 #### [facility] ([id number]) [address] [place] [address] WBC (Bld) [#/Vol] 12.5 10*3/uL High 4.0-11.0 [facility] Comment on above: Performed By: #### B ALCON CBCA, 1987-08, 21811-5 #### [facility] ([id number]) [address] [place] [address] 23019 #### 52296-9 #### [facility] ([id number]) [address] [place] [address] CRP [Mass/Vol]on 04-19-2023 C REACTIVE PROTEIN 7.8 mg/dL High 0.000-0.744 [facility] Comment on above: Performed By: #### B ALCON CBCA, 1987-08, 13926-6 #### [facility] ([id number]) [address] [place] [address] 83877 #### 07894-7 #### [facility] ([id number]) [address] [place] [address] ESR Photometric method (Bld) [Velocity]on 04-19-2023 ESR, ERYTHROCYTE SEDIMENTATION RATE 115 mm/h High 0-20 [facility] Comment on above: Performed By: #### Laura RONDON CBCA, 1987-08, 83811-8 #### [facility] ([id number]) [address] [place] [address] 24373 #### 77604-7 #### [facility] ([id number]) [address] [place] [address] Natriuretic peptide.B prohor adrianne N-Terminal [Mass/Vol]on 04-19-2023 NT Pro BNP See Below Normal [facility] Comment on above: Result Comment: NOTE TEST RESULT FLAG UNIT REF.RANGE ----- PRO B Natr Peptide 587 H pg/mL <125 Test Performed By: [facility] [address] [place] [address] Botany Technician: Tyler Valle III, M.D. CLIA #[id number] Performed By: #### B MP, CBCA, 1987-08, 62010-2 #### [facility] ([id number]) [address] [place] [address], [place] [address] #### 37891-5 #### [facility] ([id number]) [address] [place] [address], [address] [place] [address] Basic Metabolic Profon 02-27 Anion gap [Moles/Vol] 11 mmol/L Normal 9-[address] [facility] Comment on above: Performed By: #### S ED, CRP, BMP, CDP #### [facility] [address] [place] [address] Elementary Education Tutor: Jameson Aaron MD BUN/CRE Ratio 16 Normal -[address] [facility] Comment on above: Performed By: #### S ED, CRP, BMP, CDP #### [facility] [address] [place] [address] Elementary Education Tutor: Jameson Aaron MD Calcium [Mass/Vol] 9.4 mg/dL Normal 8.6-10.[address] [facility] Comment on above: Performed By: #### S ED, CRP, BMP, CDP #### [facility] [address] [place] [address] Elementary Education Tutor: Jameson Aaron MD Chloride [Moles/Vol] 98 mmol/L Normal 98-107 [facility] Comment on above: Performed By: #### S ED, CRP, BMP, CDP #### [facility] [address] [place] [address] Elementary Education Tutor: Jameson Aaron MD CO2 [Moles/Vol] 18 mmol/L Low 20-[address] [facility] Comment on above: Performed By: #### S ED CRP BMP, CDP #### [facility] [address] [place] [address] Elementary Education Tutor: Jameson Aaron MD Creatinine [Mass/Vol] 2.7 mg/dL High 0.7-1.[address] [facility] Comment on above: Performed By: #### S LACIE MANRIQUE BMP, CDP #### [facility] [address] [place] [address] Elementary Education Tutor: Jameson Aaron MD GFR/1.73 sq M.predicted among non-blacks MDRD (S/P/Bld) [Vol rate/Area] 26 mL/min/{1.73_m2} Low >[address] [facility] Comment on above: Result Comment: These [...] By: #### S EDLACIE BMP, CDP #### [facility] [address] [place] [address] Elementary Education Tutor: Jameson Aaron MD Glucose [Mass/Vol] 268 mg/dL High 70-[address] [facility] Comment on above: Performed By: #### S EDLACIE BMP, CDP #### [facility] [address] [place] [address] Elementary Education Tutor: Jameson Aaron MD Potassium [Moles/Vol] 5.2 mmol/L Normal 3.7-5.[address] [facility] Comment on above: Performed By: #### S ED, CRP, BMP, CDP #### [facility] [address] [place], [place] [address] Elementary Education Tutor: Jameson Aaron MD Sodium [Moles/Vol] 127 mmol/L Low 135-[address] [facility] Comment on above: Performed By: #### S ED, CRP, BMP, CDP #### [facility] [address] [place], [place] [address] Elementary Education Tutor: Jameson Aaron MD Urea nitrogen [Mass/Vol] 44 mg/dL High 8-[address] [facility] Comment on above: Performed By: #### S ED, CRP, BMP, CDP #### [facility] [address] [place] [address] [place] [address] Elementary Education Tutor: Jameson Aaron MD C-Reactive Proteinon 023 CRP [Mass/Vol] 131.1 mg/L High 0.0-5.[address] [facility] Comment on above: Performed By: #### S ED, CRP, BMP, CDP #### [address] [place] [address] Elementary Education Tutor: Jameson Aaron MD CBC with Diffon 02-27-2023 Abs. Basophil 0.06 k/uL Normal 0.00-0.[address] [facility] Comment on above: Performed By: #### S ED, CRP, BMP, CDP #### [facility] [address] [place], [place] [address] Elementary Education Tutor: Jameson Aaron MD Abs.Imm.Granulocyte 0.11 k/uL Normal 0.00-0.[address] [facility] Comment on above: Performed By: #### S ED, CRP, BMP, CDP #### [facility] [address] [place], [place] [address] Elementary Education Tutor: Jameson Aaron MD Abs.Neutrophil (Seg) 6.83 k/uL Normal 1.50-8.10 [facility] Comment on above: Performed By: #### S ED, CRP, BMP, CDP #### [facility] [address] [place] [address] [place] [address] Elementary Education Tutor: Jameson Aaron MD Basophils/100 WBC (Bld) 1 % Normal 0-[address] [facility] Comment on above: Performed By: #### S ED, CRP, BMP, CDP #### [address] [place], [facility]83 Elementary Education Tutor: Jameson Aaron MD Eosinophils (Bld) [#/Vol] 0.22 10*3/uL Normal 0.00-0.[address] [facility] Comment on above: Performed By: #### S ED, CRP, BMP, CDP #### [address] [place] [address] Elementary Education Tutor: Jameson Aaron MD Eosinophils/100 WBC (Bld) 2 % Normal 1-[address] [facility] Comment on above: Performed By: #### S ED, CRP, BMP, CDP #### [address] [place], [facility]83 Elementary Education Tutor: Jameson Aaron MD Erythrocyte distribution width (RBC) [Ratio] 14.6 % High 11.8-14.[address] [facility] Comment on above: Performed By: #### S ED, CRP, BMP, CDP #### [address] [place], [place] [address] Elementary Education Tutor: Jameson Aaron MD Hematocrit (Bld) [Volume fraction] 41.9 % Normal 40.7-50.[address] [facility] Comment on above: Performed By: #### S ED, CRP, BMP, CDP #### [address] [place], [facility]83 Elementary Education Tutor: Jameson Aaron MD Hemoglobin (Bld) [Mass/Vol] 13.2 g/dL Normal 13.0-17.[address] [facility] Comment on above: Performed By: #### S ED, CRP, BMP, CDP #### [facility] [address] [place], [place] [address] Elementary Education Tutor: Jameson Aaron MD Immature granulocytes/100 WBC (Bld) 1 % High [address] [facility] Comment on above: Performed By: #### S ED, CRP, BMP, CDP #### [facility] [address] [place], [place] [address] Elementary Education Tutor: Jameson Aaron MD Lymphocytes (Bld) [#/Vol] 1.83 10*3/uL Normal 1.10-3.[address] [facility] Comment on above: Performed By: #### S ED, CRP, BMP, CDP #### [facility] [address] [place], [place] [address] Elementary Education Tutor: Jameson Aaron MD Lymphocytes/100 WBC (Bld) 18 % Low 24-[address] [facility] Comment on above: Performed By: #### S ED, CRP, BMP, CDP #### [address] [place], [place] [address] Elementary Education Tutor: Jameson Aaron MD MCH (RBC) [Entitic mass] 28.2 pg Normal 25.2-33.[address] [facility] Comment on above: Performed By: #### S ED, CRP, BMP, CDP #### [facility] [address] [place] [address] [address] [place], [place] [address] Elementary Education Tutor: Jameson Aaron MD MCHC (RBC) [Mass/Vol] 31.5 g/dL Normal 28.4-34.[address] [facility] Comment on above: Performed By: #### S ED, CRP, BMP, CDP #### [facility] [address] [place], [place] [address] Elementary Education Tutor: Jameson Aaron MD MCV (RBC) [Entitic vol] 89.5 fL Normal 82.6-102.[address] [facility] Comment on above: Performed By: #### S ED, CRP, BMP, CDP #### [facility] [address] [place], [place] [address] Elementary Education Tutor: Jameson Aaron MD Monocytes (Bld) [#/Vol] 1.42 10*3/uL High 0.10-1.[address] [facility] Comment on above: Performed By: #### S ED, CRP, BMP, CDP #### [facility] [address] [place], [place] [address] Elementary Education Tutor: Jameson Aaron MD Monocytes/100 WBC (Bld) 14 % High 3-[address] [facility] Comment on above: Performed By: #### S ED, CRP, BMP, CDP #### [facility] [address] [place], [place] [address] Elementary Education Tutor: Jameson Aaron MD Neutrophil (Seg) 64 % Normal 36-[address] [facility] Comment on above: Performed By: #### S ED, CRP, BMP, CDP #### [facility] [address] [place], [place] [address] Elementary Education Tutor: Jameson Aaron MD NRBC Automated 0.0 per [address] WBC Normal 0.[address] [facility] Comment on above: Performed By: #### S ED, CRP, BMP, CDP #### [facility] [address] [place], [place] [address] Elementary Education Tutor: Jameson Aaron MD Platelet mean volume (Bld) [Entitic vol] 9.4 fL Normal 8.1-13.[address] [facility] Comment on above: Performed By: #### S ED, CRP, BMP, CDP #### [facility] [address] [place], [facility]83 Elementary Education Tutor: Jameson Aaron MD Platelets (Bld) [#/Vol] 266 10*3/uL Normal 138-[address] [facility] Comment on above: Performed By: #### S ED, CRP, BMP, CDP #### [facility] [address] [place], [place] [address] Elementary Education Tutor: Jameson Aaron MD RBC (Bld) [#/Vol] 4.68 10*6/uL Normal 4.21-5.[address] [facility] Comment on above: Performed By: #### S ED, CRP, BMP, CDP #### [facility] [address] [place], [place] [address] Elementary Education Tutor: Jameson Aaron MD WBC (Bld) [#/Vol] 10.5 10*3/uL Normal 3.5-11.[address] [facility] Comment on above: Performed By: #### S ED, CRP, BMP, CDP #### [facility] [address] [place], [place] [address] Elementary Education Tutor: Jameson Aaron MD Sedimentation Rateon 023 Sedimentation Rate 114 mm/Hr High 0-[address] [facility] Comment on above: Performed By: #### S ED, CRP, BMP, CDP #### [facility] [address] [place], [place] [address] Elementary Education Tutor: Jameson Aaron MD FUNGAL CULTUREon 09-21-2022 Fungus (Mycology) Culture Final report Abnormal [facility] Comment on above: Performed By: #### C XFUN ####[facility] [address] [place] [address]Dr. Eddie Lerner Fungus Stain Final report Normal [facility] Comment on above: Performed By: #### C XFUN ####[facility] [address] [place] [id number]. Eddie Lerner Result 1 Comment Normal [facility] Comment on above: Result Comment: ANNEMARIE/ Calcofluor preparation: no fungus observed. Performed By: #### C XFUN ####[facility] [address] [place] [id number]. Eddie Lerner Result 1 Rosy albicans Abnormal [facility] Comment on above: Performed By: #### C XFUN ####[facility] [address] [place] [address]Dr. Eddie Lerner CULTURE OTHERon 08-23-2022 CULTURE OTHER Isolate 1 Enterococcus faecalis Light growth of ORGANISM 1 Enterococcus faecalis ANTIBIOTIC M.I.C RX STATUS Beta-Lactamase Neg NEG F Benzylpenicillin 0.5 S F Ampicillin <=2 S F Gentamicin High Level (synergy) SYN-R R F Streptomycin High Level (synergy) SYN-S S F Quinupristin/Dalfopristin 4 R F Linezolid 1 S F Vancomycin 1 S F Normal [facility] Comment on above: Performed By: #### O THCX ####[facility] [address] [place] [address]DrVaishali Lerner ACID FAST SMEAR AND CXon Acid Fast Smear Negative Normal [facility] Comment on above: Performed By: #### A FB ####[facility] [address] [place], [place] [address]DrVaishali Lerner [employer] Specimen Processing Tissue Grinding [facility] Comment on above: Performed By: #### A FB ####[facility] [address] [place], [place] [address]DrVaishali Lerner BNPon 08-20-2022 Natriuretic peptide B (Bld) [Mass/Vol] 648.0 pg/mL Normal <=900.0 [facility] Comment on above: Performed By: #### A 1C #### [facility] [address] [place] [address] Dr. Eddie Lerner CULTURE ANAEROBICon 08-21-19 23 CULTURE ANAEROBIC Culture Observations : NO GROWTH OF ANAEROBES AT 72 HOURS. Normal [facility] Comment on above: Performed By: #### A NACX ####[facility] [address] [place], [place] [address]DrVaishali Lerner GLYCOHEMOGLOBIN A1Con 2022 ADA RECOMMENDATION SEE BELOW [facility] Comment on above: Result Comment: ADA RECOMMENDED LIMIT 4.0 - 6.0 ADA THERAPEUTIC TARGET < 7.0 ACTION SUGGESTED > 7.0 Performed By: #### R ENAL, LIPID, LIVER, TSH #### [facility] [address] [place] [address] [address] Eddie Lerner Glucose [Mass/Vol] 235 mg/dL Normal [facility] Comment on above: Performed By: #### R ENAL, LIPID, LIVER, TSH #### [facility] [address] [place] [address] [address] Eddie Lerner HbA1c (Bld) [Mass fraction] 9.8 % Critically high 4.5-6.2 [facility] Comment on above: Performed By: #### R ENAL, LIPID, LIVER, TSH #### [facility] [address] [place] [address] [address] Eddie Lerner GRAM STAINon 08-20-2022 COMMENTS NO ORGANISMS OBSERVED Normal [facility] Comment on above: Performed By: #### G STAIN ####[facility] [address] [place] [address]Dr. Eddie Lerner DIPHTHEROIDS Normal [facility] Comment on above: Performed By: #### G STAIN ####[facility] [address] [place] [address]Dr. Eddie Lerner EPITHELIALS Normal [facility] Comment on above: Performed By: #### G STAIN ####[facility] [address] [place] [address]Dr. Eddie Lerner FUNGAL ELEMENTS Normal [facility] Comment on above: Performed By: #### G STAIN ####[facility] [address] [place] [address]Dr. Eddie Lerner GRAM NEG BACILLI Normal [facility] Comment on above: Performed By: #### G STAIN ####[facility] [address] [place] [address]Dr. Eddie Lerner GRAM NEG DIPPLOCOCCI Normal [facility] Comment on above: Performed By: #### G STAIN ####[facility] [address] [place] [address]Dr. Eddie Lerner GRAM POS BACILLI Normal [facility] Comment on above: Performed By: #### G STAIN ####[facility] [address] [place] [address]Dr. Eddie Lerner GRAM POSITIVE COCCI Normal [facility] Comment on above: Performed By: #### G STAIN ####[facility] [address] [place] [id number]. Eddie Lerner GRAM STAIN SOURCE Lt Foot Bone Normal [facility] Comment on above: Performed By: #### G STAIN ####[facility] [address] [place], [place] [address]Mr. Eddie Lerner GS_DIPTH Normal [facility] Comment on above: Performed By: #### G STAIN ####[facility] [address] [place] [id number]. Eddie Lerner WBC RARE Normal [facility] Comment on above: Performed By: #### G STAIN ####[facility] [address] [place] [address]Dr. Eddie Lerner LIPID PROFILEon 08-20-2022 CHOL-HDL RATIO NORM SEE BELOW Normal [facility] Comment on above: Result Comment: 3.3 - 4.4 LOW RISK 4.4 - 7.1 AVERAGE RISK 7.1 - 11.0 MODERATE RISK >11.0 HIGH RISK Performed By: #### A 1C #### [facility] [address] [address] [address] Eddie Lerner Cholesterol [Mass/Vol] 137 mg/dL Normal <=200 [facility] Comment on above: Performed By: #### A 1C #### [facility] [address] [address] [address] Eddie Lerner Cholesterol in HDL [Mass/Vol] 54 mg/dL Normal 40-60 [facility] Comment on above: Performed By: #### A 1C #### [facility] [address] [address] [address] Eddie Lerner Cholesterol in LDL [Mass/Vol] 63.2 mg/dL Normal [facility] Comment on above: Performed By: #### A 1C #### [facility] [address] [address] [address] Eddie Lerner Cholesterol.total/Ch olesterol in HDL [Mass ratio] 2.5 {ratio} Normal [facility] Comment on above: Performed By: #### A 1C #### [facility] [address] [address] [address] Eddie Lerner HDL NORMAL > or = 60 mg/dl - LO W CARDIOVASCULAR RISK <40 mg/dl - HIGH CARDIOVASCULAR RISK Normal [facility] Comment on above: Performed By: #### A 1C #### [facility] [address] [address] [address] Eddie Lerner LDL CALC NORMAL SEE BELOW Normal [facility] Comment on above: Result Comment: <100 mg/dl OPTIMAL 100 - 129 mg/dl NEAR OR ABOVE OPTIMAL 130 - 159 mg/dl BORDERLINE HIGH 160 - 189 mg/dl HIGH >190 mg/dl VERY HIGH Performed By: #### A 1C #### [facility] [address] [place] [address] Dr. Eddie Lerner Triglyceride [Mass/Vol] 99 mg/dL Normal <=150 [facility] Comment on above: Performed By: #### A 1C #### [facility] [address] [address] [address] Eddie Lerner VLDL CALC 19.8 mg/dL Normal [facility] Comment on above: Performed By: #### A 1C #### [facility] [address] [address] [address] Eddie Lerner LIVER PROFILEon 08-20-2022 Albumin [Mass/Vol] 2.8 g/dL Critically low 3.4-5.0 [facility] Comment on above: Performed By: #### A 1C #### [facility] [address] [place] [address] Dr. Eddie Lerner Albumin/Globulin [Mass ratio] 0.6 {ratio} Normal [facility] Comment on above: Performed By: #### A 1C #### [facility] [address] [address] [address] Eddie Lerner ALP [Catalytic activity/Vol] 87 U/L Normal 46-116 [facility] Comment on above: Performed By: #### A 1C #### [facility] [address] [place] [address] Dr. Eddie Lerner ALT [Catalytic activity/Vol] 49 U/L Normal 16-63 [facility] Comment on above: Performed By: #### A 1C #### [facility] [address] [address] [address] Eddie Lerner AST [Catalytic activity/Vol] 36 U/L Normal 15-37 [facility] Comment on above: Performed By: #### A 1C #### [facility] [address] [address] [address] Eddie Lerner BILI, CONJUGATED 0.1 mg/dL Normal 0.0-0.2 [facility] Comment on above: Performed By: #### A 1C #### [facility] [address] [address] [address] Eddie Lerner Bilirubin [Mass/Vol] 0.4 mg/dL Normal 0.2-1.0 [facility] Comment on above: Performed By: #### A 1C #### [facility] [address] [address] [address] Eddie Lerner Globulin (S) [Mass/Vol] 4.4 g/dL Normal [facility] Comment on above: Performed By: #### A 1C #### [facility] [address] [address] [address] Eddie Lerner Protein [Mass/Vol] 7.2 g/dL Normal 6.4-8.2 [facility] Comment on above: Performed By: #### A 1C #### [facility] [address] [address] [address] Eddie Lerner POINT OF CARE GLUCOSEon 07-29 Glucose [Mass/Vol] 107 mg/dL Critically high 74-[address] [facility] Comment on above: Performed By: #### P OCGLUC #### [facility] [address] [address] [address] Eddie Lerner Glucose [Mass/Vol] 108 mg/dL Critically high 74-[address] [facility] Comment on above: Performed By: #### P OCGLUC ####[facility] [address] [place] [address]Dr. Eddie Lerner TSHon 08-20-2022 TSH 2.247 uIU/mL Normal 0.358-3.740 [facility] Comment on above: Performed By: #### A 1C #### [facility] [address] [address] [address] Eddie Lerner CBC AUTO DIFFon 08-15-2022 BASO # 0.0 103/ul Normal 0.0-0.1 [facility] Comment on above: Performed By: #### C BC ####[facility] [address] [place] [address]Dr. Eddie Lerner Basophils/100 WBC (Bld) 0.4 % Normal 0.2-2.0 [facility] Comment on above: Performed By: #### C BC ####[facility] [address] [place] [address]Dr. Eddie Lerner EO # 0.2 103/ul Normal 0.0-0.7 [facility] Comment on above: Performed By: #### C BC ####[facility] [address] [place] [address]Dr. Eddie Lerner Eosinophils/100 WBC (Bld) 2.0 % Normal 0.9-7.0 [facility] Comment on above: Performed By: #### C BC ####[facility] [address] [place], [place] [address]Dr. Eddie Lerner Erythrocyte distribution width (RBC) [Ratio] 14.5 % Normal 11.0-15.0 [facility] Comment on above: Performed By: #### C BC ####[facility] [address] [place], [place] [address]Dr. Eddie Lerner Hematocrit (Bld) [Volume fraction] 40.5 % Critically low 42.0-54.0 [facility] Comment on above: Performed By: #### C BC ####[facility] [address] [place], [place] [address]Dr. Eddie Lerner Hemoglobin (Bld) [Mass/Vol] 13.1 g/dL Critically low 14.0-18.0 [facility] Comment on above: Performed By: #### C BC ####[facility] [address] [place], [place] [address]Dr. Eddie Lerner IG # 0.12 10e3/ul Critically high 0.00-0.03 [facility] Comment on above: Performed By: #### C BC ####[facility] [address] [place] [address]DrVaishali Eddie Yann IG % 1.2 % Critically high 0.0-0.5 [facility] Comment on above: Performed By: #### C BC ####[facility] [address] [place], [place] [address]DrVaishali Lamaquincy Yann LYMPH # 1.4 103/ul Normal 1.2-3.8 [facility] Comment on above: Performed By: #### C BC ####[facility] Es[address] [place], [place] [address]DrVaishali Lerner Lymphocytes/100 WBC (Bld) 13.6 % Critically low 20.5-60.0 [facility] Comment on above: Performed By: #### C BC ####[facility] [address] [place], [place] [address]DrVaishali Dainaquincy Lerner MANUAL DIFF REQ NO Normal [facility] Comment on above: Performed By: #### C BC ####[facility] [address] [place], [place] [address]DrVaishali Eddie Yann MCH (RBC) [Entitic mass] 29.8 pg Normal 25.9-34.0 [facility] Comment on above: Performed By: #### C BC ####[facility] [address] [place], [place] [address]DrVaishali Lerner MCHC (RBC) [Mass/Vol] 32.3 g/dL Normal 29.9-35.2 [facility] Comment on above: Performed By: #### C BC ####[facility] [address] [place], [place] [address]DrVaishali Lerner MCV (RBC) [Entitic vol] 92.0 fL Normal 80.0-94.0 [facility] Comment on above: Performed By: #### C BC ####[facility] [address] [place], [place] [address]DrVaishali Lerner MONO # 0.5 103/ul Normal 0.3-0.8 [facility] Comment on above: Performed By: #### C BC ####[facility] [address] [place] [address]Dr. Eddie Lerner Monocytes/100 WBC (Bld) 4.8 % Normal 1.7-12.0 [facility] Comment on above: Performed By: #### C BC ####[facility] [address] [place] [address]Dr. Eddie Lerner NEUT # 8.1 103/ul Critically high 1.4-6.5 [facility] Comment on above: Performed By: #### C BC ####[facility] [address] [place] [address]Dr. Eddie Lerner Neutrophils/100 WBC (Bld) 78.0 % Critically high 43.0-75.0 [facility] Comment on above: Performed By: #### C BC ####[facility] [address] [place], [place] [address]Dr. Eddie Lerner Platelet mean volume (Bld) [Entitic vol] 8.6 fL Critically low 9.5-13.5 [facility] Comment on above: Performed By: #### C BC ####[facility] [address] [place], [place] [address]Dr. Eddie Lerner PLT 240 103/ul Normal 150-450 [facility] Comment on above: Performed By: #### C BC ####[facility] [address] [place], [place] [address]Dr. Eddie Lerner RBC 4.40 106/ul Critically low 4.70-6.10 [facility] Comment on above: Performed By: #### C BC ####[facility] [address] [place], [place] [address]Dr. Eddie Lerner WBC 10.3 103/ul Normal 4.0-11.0 [facility] Comment on above: Performed By: #### C BC ####[facility] [address] [place], [place] [address]Dr. Eddie Lerner CRPon 04-19-2023 CRP [Mass/Vol] mg/L Normal <=1.0 [facility] Comment on above: Performed By: #### A 1C #### [facility] [address] [place] [address] Dr. Eddie Lerner PROF CHEM 8 (BAS METB)on Anion gap [Moles/Vol] 14.4 mmol/L Normal [facility] Comment on above: Performed By: #### A 1C #### [facility] [address] [place] [address] Dr. Eddie Lerner Calcium [Mass/Vol] 9.2 mg/dL Normal 8.5-10.1 [facility] Comment on above: Performed By: #### A 1C #### [facility] [address] [place] [address] Dr. Eddie Lerner Chloride [Moles/Vol] 101 mmol/L Normal 98-107 [facility] Comment on above: Performed By: #### A 1C #### [facility] [address] [place] [address] Dr. Eddie Lerner CO2 [Moles/Vol] 25.2 mmol/L Normal 21.0-32.0 [facility] Comment on above: Performed By: #### A 1C #### [facility] [address] [place] [address] Dr. Eddie Lerner Creatinine [Mass/Vol] 3.07 mg/dL Critically high 0.70-1.30 [facility] Comment on above: Performed By: #### A 1C #### [facility] [address] [place] [address] Dr. Eddie Lerner EGFR-AF KENYAN 25 mL/min/1.73m2 Critically low >=60 [facility] Comment on above: Performed By: #### A 1C #### [facility] [address] [place] [address] Dr. Eddie Lerner EGFR-NON AF KENYAN 21 mL/min/1.73m2 Critically low >=60 [facility] Comment on above: Performed By: #### A 1C #### [facility] [address] [place] [address] Dr. Eddie Lerner Glucose [Mass/Vol] 415 mg/dL Critically high 74-106 [facility] Comment on above: Performed By: #### A 1C #### [facility] [address] [address] [address] Eddie Lerner Potassium [Moles/Vol] 5.6 mmol/L Critically high 3.5-5.1 [facility] Comment on above: Performed By: #### A 1C #### [facility] [address] [address] [address] Eddie Lerner Sodium [Moles/Vol] 135 mmol/L Critically low 136-145 Th [facility] Comment on above: Performed By: #### A 1C #### [facility] [address] [address] [address] Eddie Lerner Urea nitrogen [Mass/Vol] 34.0 mg/dL Critically high 7.0-18.0 [facility] Comment on above: Performed By: #### A 1C #### [facility] [address] [address] [address] Eddie Lerner Urea nitrogen/Creatinine [Mass ratio] 11.1 mg/mg Normal [facility] Comment on above: Performed By: #### A 1C #### [facility] [address] [place] [address] Dr. Eddie Lerner [facility] 59 mm/hr Critically high <=20 [facility] Comment on above: Performed By: #### S EDR ####[facility] [address] [place] [address]Dr. Edide Lerner BNPon 06-06-2022 Natriuretic peptide B (Bld) [Mass/Vol] 1342.0 pg/mL Critically high <=900.0 [facility] Comment on above: Performed By: #### B PACKAGING MANAGER ####[facility] [address] [place] [address]Dr. Eddie Lerner CBC AUTO DIFFon 06-06-2022 BASO # 0.1 103/ul Normal 0.0-0.1 [facility] Comment on above: Performed By: #### A 1C #### [facility] [address] [place] [address] Dr. Eddie Lerner Basophils/100 WBC (Bld) 0.6 % Normal 0.2-2.0 [facility] Comment on above: Performed By: #### A 1C #### [facility] [address] [place] [address] Dr. Eddie Lerner EO # 0.2 103/ul Normal 0.0-0.7 [facility] Comment on above: Performed By: #### A 1C #### [facility] [address] [place] [address] Dr. Eddie Lerner Eosinophils/100 WBC (Bld) 1.8 % Normal 0.9-7.0 [facility] Comment on above: Performed By: #### A 1C #### [facility] [address] [place] [address] Dr. Eddie Lerner Erythrocyte distribution width (RBC) [Ratio] 15.2 % Critically high 11.0-15.0 [facility] Comment on above: Performed By: #### A 1C #### [facility] [address] [place] [address] Dr. Eddie Lerner Hematocrit (Bld) [Volume fraction] 39.0 % Critically low 42.0-54.0 [facility] Comment on above: Performed By: #### A 1C #### [facility] [address] [place] [address] Dr. Eddie Lerner Hemoglobin (Bld) [Mass/Vol] 12.4 g/dL Critically low 14.0-18.0 [facility] Comment on above: Performed By: #### A 1C #### [facility] [address] [place] [address] Dr. Eddie Lerner IG # 0.21 10e3/ul Critically high 0.00-0.03 [facility] Comment on above: Performed By: #### A 1C #### [facility] [address] [place] [address] Dr. Eddie Lerner IG % 1.6 % Critically high 0.0-0.5 [facility] Comment on above: Performed By: #### A 1C #### [facility] [address] [place] [address] Dr. Eddie Lerner LYMPH # 1.9 103/ul Normal 1.2-3.8 [facility] Comment on above: Performed By: #### A 1C #### [facility] [address] [place] [address] Dr. Eddie Lerner Lymphocytes/100 WBC (Bld) 13.8 % Critically low 20.5-60.0 [facility] Comment on above: Performed By: #### A 1C #### [facility] [address] [place] [address] Dr. Eddie Lerner MANUAL DIFF REQ NO Normal [facility] Comment on above: Performed By: #### A 1C #### [facility] [address] [place] [address] Dr. Eddie Lerner MCH (RBC) [Entitic mass] 27.8 pg Normal 25.9-34.0 [facility] Comment on above: Performed By: #### A 1C #### [facility] [address] [place] [address] Dr. Eddie Lerner MCHC (RBC) [Mass/Vol] 31.8 g/dL Normal 29.9-35.2 [facility] Comment on above: Performed By: #### A 1C #### [facility] [address] [place] [address] Dr. Eddie Lerner MCV (RBC) [Entitic vol] 87.4 fL Normal 80.0-94.0 [facility] Comment on above: Performed By: #### A 1C #### [facility] [address] [place] [address] Dr. Eddie Lerner MONO # 0.8 103/ul Normal 0.3-0.8 [facility] Comment on above: Performed By: #### A 1C #### [facility] [address] [place] [address] Dr. Eddie Lerner Monocytes/100 WBC (Bld) 5.9 % Normal 1.7-12.0 [facility] Comment on above: Performed By: #### A 1C #### [facility] [address] [address] [address] Eddie Lerner NEUT # 10.3 103/ul Critically high 1.4-6.5 [facility] Comment on above: Performed By: #### A 1C #### [facility] [address] [place] [address] Dr. Eddie Lerner Neutrophils/100 WBC (Bld) 76.3 % Critically high 43.0-75.0 [facility] Comment on above: Performed By: #### A 1C #### [facility] [address] [place] [address] Dr. Eddie Lerner Platelet mean volume (Bld) [Entitic vol] 10.2 fL Normal 9.5-13.5 [facility] Comment on above: Performed By: #### A 1C #### [facility] [address] [place] [address] Dr. Eddie Lerner PLT 288 103/ul Normal 150-450 [facility] Comment on above: Performed By: #### A 1C #### [facility] [address] [place] [address] Dr. Eddie Lerner RBC 4.46 106/ul Critically low 4.70-6.10 [facility] Comment on above: Performed By: #### A 1C #### [facility] [address] [place] [address] Dr. Eddie Lerner WBC 13.5 103/ul Critically high 4.0-11.0 [facility] Comment on above: Performed By: #### A 1C #### [facility] [address] [place] [address] Dr. Eddie Lerner GLYCOHEMOGLOBIN A1Con 2022 ADA RECOMMENDATION SEE BELOW Normal [facility] Comment on above: Result Comment: ADA RECOMMENDED LIMIT 4.0 - 6.0 ADA THERAPEUTIC TARGET < 7.0 ACTION SUGGESTED > 7.0 Performed By: #### A 1C #### [facility] [address] [place] [address] Dr. Eddie Lerner Glucose [Mass/Vol] 283 mg/dL Normal [facility] Comment on above: Performed By: #### A 1C #### [facility] [address] [place] [address] Dr. Eddie Lerner HbA1c (Bld) [Mass fraction] 11.5 % Critically high 4.5-6.2 [facility] Comment on above: Performed By: #### A 1C #### [facility] [address] [place] [address] Dr. Eddie Lerner LIPID PROFILEon 06-06-2022 CHOL-HDL RATIO NORM SEE BELOW Normal [facility] Comment on above: Result Comment: 3.3 - 4.4 LOW RISK 4.4 - 7.1 AVERAGE RISK 7.1 - 11.0 MODERATE RISK >11.0 HIGH RISK Performed By: #### R ENAL, LIPID, LIVER, TSH #### [facility] [address] [place] [address] Dr. Eddie Lerner Cholesterol [Mass/Vol] 152 mg/dL Normal <=200 [facility] Comment on above: Performed By: #### R ENAL, LIPID, LIVER, TSH #### [facility] [address] [place] [address] Dr. Eddie Lerner Cholesterol in HDL [Mass/Vol] 51 mg/dL Normal 40-60 [facility] Comment on above: Performed By: #### R ENAL, LIPID, LIVER, TSH #### [facility] [address] [place] [address] Dr. Eddie Lerner Cholesterol in LDL [Mass/Vol] 61.0 mg/dL Normal [facility] Comment on above: Performed By: #### R ENAL, LIPID, LIVER, TSH #### [facility] [address] [place] [address] Dr. Eddie Lerner Cholesterol.total/Ch olesterol in HDL [Mass ratio] 3.0 {ratio} Normal [facility] Comment on above: Performed By: #### R ENAL, LIPID, LIVER, TSH #### [facility] [address] [place] [address] Dr. Eddie Lerner HDL NORMAL > or = 60 mg/dl - LO W CARDIOVASCULAR RISK <40 mg/dl - HIGH CARDIOVASCULAR RISK Normal [facility] Comment on above: Performed By: #### R ENAL, LIPID, LIVER, TSH #### [facility] [address] [address] [address] Eddie Lerner LDL CALC NORMAL SEE BELOW Normal [facility] Comment on above: Result Comment: <100 mg/dl OPTIMAL 100 - 129 mg/dl NEAR OR ABOVE OPTIMAL 130 - 159 mg/dl BORDERLINE HIGH 160 - 189 mg/dl HIGH >190 mg/dl VERY HIGH Performed By: #### R ENAL, LIPID, LIVER, TSH #### [facility] [address] [address] [address] Eddie Lerner Triglyceride [Mass/Vol] 200 mg/dL Critically high <=150 [facility] Comment on above: Performed By: #### R ENAL, LIPID, LIVER, TSH #### [facility] [address] [address] [address] Eddie Lerner VLDL CALC 40.0 mg/dL Normal [facility] Comment on above: Performed By: #### R ENAL, LIPID, LIVER, TSH #### [facility] [address] [address] [address] Eddie Lerner LIVER PROFILEon 06-06-2022 Albumin [Mass/Vol] 2.6 g/dL Critically low 3.4-5.0 Th [facility] Comment on above: Performed By: #### R ENAL, LIPID, LIVER, TSH #### [facility] [address] [address] [address] Eddie Lerner Albumin/Globulin [Mass ratio] 0.6 {ratio} Normal [facility] Comment on above: Performed By: #### R ENAL, LIPID, LIVER, TSH #### [facility] [address] [address] [address] Eddie Lerner ALP [Catalytic activity/Vol] 120 U/L Critically high 46-116 [facility] Comment on above: Performed By: #### R ENAL, LIPID, LIVER, TSH #### [facility] [address] [place] [address] Dr. Eddie Lerner ALT [Catalytic activity/Vol] 22 U/L Normal 16-63 [facility] Comment on above: Performed By: #### R ENAL, LIPID, LIVER, TSH #### [facility] [address] [address] [address] Eddie Lerner AST [Catalytic activity/Vol] 15 U/L Normal 15-37 [facility] Comment on above: Performed By: #### R ENAL, LIPID, LIVER, TSH #### [facility] [address] [address] [address] Eddie Lerner BILI, CONJUGATED 0.1 mg/dL Normal 0.0-0.2 [facility] Comment on above: Performed By: #### R ENAL, LIPID, LIVER, TSH #### [facility] [address] [address] [address] Eddie Lerner Bilirubin [Mass/Vol] 0.3 mg/dL Normal 0.2-1.0 [facility] Comment on above: Performed By: #### R ENAL, LIPID, LIVER, TSH #### [facility] [address] [place] [address] Dr. Eddie Lerner Globulin (S) [Mass/Vol] 4.7 g/dL Normal [facility] Comment on above: Performed By: #### R ENAL, LIPID, LIVER, TSH #### [facility] [address] [place] [address] Dr. Eddie Lerner Protein [Mass/Vol] 7.3 g/dL Normal 6.4-8.2 [facility] Comment on above: Performed By: #### R ENAL, LIPID, LIVER, TSH #### [facility] [address] [place] [address] Dr. Eddie Lerner RENAL FUNCTION PANELon 06-06 Calcium [Mass/Vol] 9.0 mg/dL Normal 8.5-10.1 [facility] Comment on above: Performed By: #### R ENAL, LIPID, LIVER, TSH #### [facility] [address] [place] [address] Dr. Eddie Lerner Chloride [Moles/Vol] 96 mmol/L Critically low 98-107 [facility] Comment on above: Performed By: #### R ENAL, LIPID, LIVER, TSH #### [facility] [address] [place] [address] Dr. Eddie Lerner CO2 [Moles/Vol] 21.8 mmol/L Normal 21.0-32.0 [facility] Comment on above: Performed By: #### R ENAL, LIPID, LIVER, TSH #### [facility] [address] [place] [address] Dr[address] Eddie Lerner Creatinine [Mass/Vol] 2.38 mg/dL Critically high 0.70-1.30 [facility] Comment on above: Performed By: #### R ENAL, LIPID, LIVER, TSH #### [facility] [address] [address] [address] Eddie Lerner EGFR-AF KENYAN 34 mL/min/1.73m2 Critically low >=60 [facility] Comment on above: Performed By: #### R ENAL, LIPID, LIVER, TSH #### [facility] [address] [place] [address] Dr. Eddie Lerner EGFR-NON AF KENYAN 28 mL/min/1.73m2 Critically low >=60 [facility] Comment on above: Performed By: #### R ENAL, LIPID, LIVER, TSH #### [facility] [address] [address] [address] Eddie Lerner Glucose [Mass/Vol] 523 mg/dL Critically high 74-106 [facility] Comment on above: Performed By: #### R ENAL, LIPID, LIVER, TSH #### [facility] [address] [address] [address] Eddie Lerner Phosphate [Mass/Vol] 4.1 mg/dL Normal 2.6-4.7 [facility] Comment on above: Performed By: #### R ENAL, LIPID, LIVER, TSH #### [facility] [address] [address] [address] Eddie Lerner Potassium [Moles/Vol] 4.6 mmol/L Normal 3.5-5.1 [facility] Comment on above: Performed By: #### R ENAL, LIPID, LIVER, TSH #### [facility] [address] [address] [address] Eddie Lerner Sodium [Moles/Vol] 128 mmol/L Critically low 136-145 Th [facility] Comment on above: Performed By: #### R ENAL, LIPID, LIVER, TSH #### [facility] [address] [place] [address] Dr. Eddie Lerner Urea nitrogen [Mass/Vol] 28.0 mg/dL Critically high 7.0-18.0 [facility] Comment on above: Performed By: #### R ENAL, LIPID, LIVER, TSH #### [facility] [address] [place] [address] Dr. Eddie Lerner TSHon 06-06-2022 TSH 1.308 uIU/mL Normal 0.358-3.740 [facility] Comment on above: Performed By: #### R ENAL, LIPID, LIVER, TSH #### [facility] [address] [place] [address] Dr. Eddie Lerner UA RANDOMon 06-06-2022 Bilirubin Ql (U) Negative Normal NEGATIVE [facility] Comment on above: Performed By: #### U A #### [facility] [address] [place] [address] Dr. Eddie Lerner Clarity (U) CLEAR Normal CLEAR [facility] Comment on above: Performed By: #### U A #### [facility] [address] [place] [address] Dr. Eddie Lerner Color (U) LT. YELLOW Normal YELLOW [facility] Comment on above: Performed By: #### U A #### [facility] [address] [place] [address] Dr. Eddie Lerner Glucose Ql (U) >1000 Abnormal NEGATIVE [facility] Comment on above: Performed By: #### U A #### [facility] [address] [place] [address] Dr. Eddie Lerner Hemoglobin Ql (U) TRACE-INTACT Abnormal NEGATIVE [facility] Comment on above: Performed By: #### U A #### [facility] [address] [place] [address] Dr. Eddie Lerner Ketones Ql (U) Negative Normal NEGATIVE [facility] Comment on above: Performed By: #### U A #### [facility] [address] [place] [address] Dr. Eddie Lerner LEUKOCYTES Negative Normal NEGATIVE [facility] Comment on above: Performed By: #### U A #### [facility] [address] [place] [address] Dr. Eddie Lerner Nitrite Ql (U) Negative Normal NEGATIVE [facility] Comment on above: Performed By: #### U A #### [facility] [address] [place] [address] Dr. Eddie Lerner pH (U) 6.5 [pH] Normal 5-9 [facility] Comment on above: Performed By: #### U A #### [facility] [address] [place] [address] Dr. Eddie Lerner SPEC GRAVITY 1.010 Normal 1.005-<=1.02 5 [facility] Comment on above: Performed By: #### U A #### [facility] [address] [place] [address] Dr. Eddie Lerner UA PROTEIN 100 mg/dl Abnormal NEGATIVE/ TRACE [facility] Comment on above: Performed By: #### U A #### [facility] [address] [place] [address] Dr. Eddie Lerner Urobilinogen Qn (U) 0.2 {Chaya'U}/dL Normal 0.2 - 1. 0 [facility] Comment on above: Performed By: #### U A #### [facility] [address] [place] [address] Dr. Eddie Lerner VITAMIN D 25 OHon 06-06-2022 VIT D 25-OH 13.9 ng/mL Normal [facility] Comment on above: Performed By: #### V ITAD ####[facility] [address] [place] [address]Dr. Eddie Lerner VIT D RANGES SEE BELOW Normal [facility] Comment on above: Result Comment: <20 ng/mL Vit D deficient 20 - <30 ng/mL Vit D insufficient 30 - 100 ng/mL Vit D sufficient >100 ng/mL Potential Toxicity Performed By: #### V ITAD ####[facility] [address] [place] [id number]. Eddie Lerner ACID FAST SMEAR AND CXon Acid Fast Culture Negative Normal [facility] Comment on above: Result Comment: No a wendy fast bacilli isolated after 6 weeks. Performed By: #### A FB ####[facility] [address] [place] [id number]. Eddie Lerner Acid Fast Smear Negative Normal [facility] Comment on above: Performed By: #### A FB ####[facility] [address] [place] [address]Dr. Eddie Lerner [employer] Specimen Processing Tissue Grinding [facility] Comment on above: Performed By: #### A FB ####[facility] [address] [place] [address]Dr. Eddie Lerner FUNGAL CULTUREon 01-19-2022 Fungus (Mycology) Culture Final report Normal [facility] Comment on above: Performed By: #### R ENAL, LIPID, LIVER, TSH #### [facility] [address] [address] [address] Eddie Lerner Fungus Stain Final report [facility] Comment on above: Performed By: #### R ENAL, LIPID, LIVER, TSH #### [facility] [address] [address] [address] Eddie Lerner Result 1 Comment Normal [facility] Comment on above: Result Comment: ANNEMARIE/ Calcofluor preparation: no fungus observed. Performed By: #### R ENAL, LIPID, LIVER, TSH #### [facility] [address] [address] [address] Eddie Lerner Result Comment: No y east or mold isolated after 4 weeks. POINT OF CARE GLUCOSEon 12-28 Glucose [Mass/Vol] 177 mg/dL Critically high 74-[address] [facility] Comment on above: Performed By: #### A 1C #### [facility] [address] [address] [address] Eddie Lerner Glucose [Mass/Vol] 200 mg/dL Critically high 74-[address] [facility] Comment on above: Performed By: #### P OCGLUC ####[facility] [address] [place], [place] [address]Dr. Eddie Lerner [facility]-28 SARS-CoV-2 (COVID-19) RNA SUDHA+probe Ql (Unsp spec) Not detected Normal NOT DETECTED [facility] Comment on above: Result Comment: This test is not yet approved or cleared by the [place] FDA. When there are no FDA-approved or cleared tests available, and other criteria are met, FDA can make tests available under an emergency access mechanism called an Emergency Use Authorization (EUA). The EUA for this test is supported by the [employer] of Health and Human Service's (HHS's) declaration [...] SARS-CoV-2. Performed By: #### A 1C #### [facility] [address] [place] [address] Dr. Eddie Lerner PROF CHEM 8 (BAS METB)on Anion gap [Moles/Vol] 15.0 mmol/L Normal [facility] Comment on above: Performed By: #### R ENAL, LIPID, LIVER, TSH #### [facility] [address] [address] [address] Eddie Lerner Calcium [Mass/Vol] 9.3 mg/dL Normal 8.5-10.1 [facility] Comment on above: Performed By: #### R ENAL, LIPID, LIVER, TSH #### [facility] [address] [address] [address] Eddie Lerner Chloride [Moles/Vol] 105 mmol/L Normal 98-107 [facility] Comment on above: Performed By: #### R ENAL, LIPID, LIVER, TSH #### [facility] [address] [address] [address] Eddie Lerner CO2 [Moles/Vol] 22.1 mmol/L Normal 21.0-32.0 [facility] Comment on above: Performed By: #### R ENAL, LIPID, LIVER, TSH #### [facility] [address] [address] [address] Eddie Lerner Creatinine [Mass/Vol] 2.29 mg/dL Critically high 0.70-1.30 [facility] Comment on above: Performed By: #### R ENAL, LIPID, LIVER, TSH #### [facility] [address] [place] [address] Dr. Eddie Lerner EGFR-AF KENYAN 35 mL/min/1.73m2 Critically low >=60 [facility] Comment on above: Performed By: #### R ENAL, LIPID, LIVER, TSH #### [facility] [address] [place] [address] Dr. Eddie Lerner EGFR-NON AF KENYAN 29 mL/min/1.73m2 Critically low >=60 [facility] Comment on above: Performed By: #### R ENAL, LIPID, LIVER, TSH #### [facility] [address] [place] [address] Dr. Eddie Lerner Glucose [Mass/Vol] 115 mg/dL Critically high 74-106 T [facility] Comment on above: Performed By: #### R ENAL, LIPID, LIVER, TSH #### [facility] [address] [place] [address] Dr. dEdie Lerner Potassium [Moles/Vol] 5.1 mmol/L Normal 3.5-5.1 [facility] Comment on above: Performed By: #### R ENAL, LIPID, LIVER, TSH #### [facility] [address] [place] [address] Dr. Eddie Lerner Sodium [Moles/Vol] 137 mmol/L Normal 136-145 [facility] Comment on above: Performed By: #### R ENAL, LIPID, LIVER, TSH #### [facility] [address] [address] [address] Eddie Lerner Urea nitrogen [Mass/Vol] 26.0 mg/dL Critically high 7.0-18.0 [facility] Comment on above: Performed By: #### R ENAL, LIPID, LIVER, TSH #### [facility] [address] [address] [address] Eddie Lerner Urea nitrogen/Creatinine [Mass ratio] 11.4 mg/mg Normal [facility] Comment on above: Performed By: #### R ENAL, LIPID, LIVER, TSH #### [facility] [address] [address] [address] Eddie Lerner TISSUE CULTUREon 01-08-2022 Anaerobic Culture, Extended Incubation Final report Normal [facility] Comment on above: Performed By: #### C XTISSU ####[facility] [address] [place] [address]Dr. Eddie Lerner Result 1 Comment Normal [facility] Comment on above: Result Comment: Diph theroids, not Corynebacterium jeikeium Light growth Susceptibility not normally performed on this organism. Performed By: #### C XTISSU ####[facility] [address] [place] [address]Dr. Eddie Lerner Result Comment: No a naerobes recovered. Tissue Culture Final report Abnormal [facility] Comment on above: Performed By: #### C XTISSU ####[facility] [address] [place] [address]Dr. Eddie Lerner POINT OF CARE GLUCOSEon 11-28 Glucose [Mass/Vol] 89 mg/dL Normal 74-106 [facility] Comment on above: Performed By: #### R ENAL, LIPID, LIVER, TSH #### [facility] [address] [address] [address] Eddie Lerner Glucose [Mass/Vol] 85 mg/dL Normal 74-106 [facility] Comment on above: Performed By: #### P OCGLUC ####[facility] [address] [place] [address]Dr. Eddie Lerner GRAM STAINon 12-21-2021 COMMENTS NO ORGANISMS OBSERVED Normal [facility] Comment on above: Performed By: #### R ENAL, LIPID, LIVER, TSH #### [facility] [address] [address] [address] Eddie Lerner DIPHTHEROIDS Normal [facility] Comment on above: Performed By: #### R ENAL, LIPID, LIVER, TSH #### [facility] [address] [address] [address] Eddie Lerner EPITHELIALS Normal [facility] Comment on above: Performed By: #### R ENAL, LIPID, LIVER, TSH #### [facility] [address] [address] [address] Eddie Lerner FUNGAL ELEMENTS Normal [facility] Comment on above: Performed By: #### R ENAL, LIPID, LIVER, TSH #### [facility] [address] [address] [address] Eddie PRINGLE NEG BACILLI Normal [facility] Comment on above: Performed By: #### R ENAL, LIPID, LIVER, TSH #### [facility] [address] [address] [address] Eddie PRINGLE NEG DIPPLOCOCCI Normal [facility] Comment on above: Performed By: #### R ENAL, LIPID, LIVER, TSH #### [facility] [address] [address] [address] Eddie PRINGLE POS BACILLI Normal [facility] Comment on above: Performed By: #### R ENAL, LIPID, LIVER, TSH #### [facility] [address] [address] [address] Eddie Lerner GRAM POSITIVE COCCI Normal [facility] Comment on above: Performed By: #### R ENAL, LIPID, LIVER, TSH #### [facility] [address] [address] [address] Eddie Lerner GRAM STAIN SOURCE Lt 1st Metatarsal Bone Normal [facility] Comment on above: Performed By: #### R ENAL, LIPID, LIVER, TSH #### [facility] [address] [address] [address] Eddie Lerner GS_DIPTH Normal [facility] Comment on above: Performed By: #### R ENAL, LIPID, LIVER, TSH #### [facility] [address] [address] [address] Eddie Lerner WBC RARE Normal [facility] Comment on above: Performed By: #### R ENAL, LIPID, LIVER, TSH #### [facility] [address] [address] [address] Eddie Lerner POINT OF CARE GLUCOSEon 11-28 Glucose [Mass/Vol] 148 mg/dL Critically high 74-[address] [facility] Comment on above: Performed By: #### A 1C #### [facility] [address] [address] [address] Eddie Lerner Glucose [Mass/Vol] 100 mg/dL Normal 74-106 [facility] Comment on above: Performed By: #### P OCGLUC ####[facility] [address] [place] [address]Dr. Eddie Lerner Glucose [Mass/Vol] 85 mg/dL Normal 74-106 [facility] Comment on above: Performed By: #### P OCGLUC ####[facility] [address] [place] [address]Dr. Eddie Lerner Glucose [Mass/Vol] 83 mg/dL Normal 74-106 [facility] Comment on above: Performed By: #### R ENAL, LIPID, LIVER, TSH #### [facility] [address] [address] [address] Eddie Lerner Covid-19 PCR (CVDTBH)on 11-28 SARS-CoV-2 (COVID-19) RNA SUDHA+probe Ql (Unsp spec) Not detected Normal NOT DETECTED [facility] Comment on above: Result Comment: This test is not yet approved or cleared by the [place] FDA. When there are no FDA-approved or cleared tests available, and other criteria are met, FDA can make tests available under an emergency access mechanism called an Emergency Use Authorization (EUA). The EUA for this test is supported by the [employer] of Health and Human Service's (HHS's) declaration [...] with SARS-CoV-2. Performed By: #### C VDTBH ####[facility] [address] [place] [address]Dr. Eddie Lerner PROF CHEM 8 (BAS METB)on Anion gap [Moles/Vol] 11.5 mmol/L Normal [facility] Comment on above: Performed By: #### R ENAL, LIPID, LIVER, TSH #### [facility] [address] [place] [address] Dr. Eddie Lerner Calcium [Mass/Vol] 9.0 mg/dL Normal 8.5-10.1 [facility] Comment on above: Performed By: #### R ENAL, LIPID, LIVER, TSH #### [facility] [address] [place] [address] Dr. Eddie Lerner Chloride [Moles/Vol] 102 mmol/L Normal 98-107 [facility] Comment on above: Performed By: #### R ENAL, LIPID, LIVER, TSH #### [facility] [address] [address] [address] Eddie Lerner CO2 [Moles/Vol] 24.8 mmol/L Normal 21.0-32.0 [facility] Comment on above: Performed By: #### R ENAL, LIPID, LIVER, TSH #### [facility] [address] [place] [address] Dr. Eddie Lerner Creatinine [Mass/Vol] 2.19 mg/dL Critically high 0.70-1.30 [facility] Comment on above: Performed By: #### R ENAL, LIPID, LIVER, TSH #### [facility] [address] [place] [address] Dr. Eddie Lerner EGFR-AF KENYAN 37 mL/min/1.73m2 Critically low >=60 [facility] Comment on above: Performed By: #### R ENAL, LIPID, LIVER, TSH #### [facility] [address] [address] [address] Eddie Lerner EGFR-NON AF KENYAN 31 mL/min/1.73m2 Critically low >=60 [facility] Comment on above: Performed By: #### R ENAL, LIPID, LIVER, TSH #### [facility] [address] [address] [address] Eddie Lerner Glucose [Mass/Vol] 330 mg/dL Critically high 74-106 T [facility] Comment on above: Performed By: #### R ENAL, LIPID, LIVER, TSH #### [facility] [address] [address] [address] Eddie Lerner Potassium [Moles/Vol] 5.3 mmol/L Critically high 3.5-5.1 [facility] Comment on above: Performed By: #### R ENAL, LIPID, LIVER, TSH #### [facility] [address] [address] [address] Eddie Lerner Sodium [Moles/Vol] 133 mmol/L Critically low 136-145 Th [facility] Comment on above: Performed By: #### R ENAL, LIPID, LIVER, TSH #### [facility] [address] [address] [address] Eddie Lerner Urea nitrogen [Mass/Vol] 25.0 mg/dL Critically high 7.0-18.0 [facility] Comment on above: Performed By: #### R ENAL, LIPID, LIVER, TSH #### [facility] [address] [address] [address] Eddie Lerner Urea nitrogen/Creatinine [Mass ratio] 11.4 mg/mg Normal [facility] Comment on above: Performed By: #### R ENAL, LIPID, LIVER, TSH #### [facility] [address] [address] [address] Eddie Lerner Albumin [Mass/volume] in Ser um or Plasmaon 08-25-2020 Albumin [Mass/Vol] 2.0 g/dL 3.2-5.5 [facility] Basophils Auto (Bld) [#/Vol] on 08-25-2020 Basophils (Bld) [#/Vol] 0.0 10*3/uL 0.0-0.2 [facility] Basophils/100 WBC Auto (Bld) on 08-25-2020 Basophils/100 WBC (Bld) 0.1 % [facility] Blood anisocytosis detection on 08-25-2020 Anisocytosis Ql (Bld) Slight [facility] Blood hemoglobin measurement (mass/volume)on 08-25-2020 Hemoglobin (Bld) [Mass/Vol] 10.1 g/dL 13.0-17.0 [facility] Blood leukocytes automated c ount (number/volume)on 08-25-2020 WBC (Bld) [#/Vol] 12.6 10*3/uL 4.5-11.0 [facility] Blood polychromasia detectio n by light microscopyon 08-25-2020 Polychromasia LM Ql (Bld) Slight [facility] Creatinine and Glomerular fi ltration rate.predicted panel (S/P/Bld)on 08-25-2020 Creatinine [Mass/Vol] 4.06 mg/dL 0.64-1.27 [facility] Eosinophils Auto (Bld) [#/Vo l]on 08-25-2020 Eosinophils (Bld) [#/Vol] 0.0 10*3/uL 0.0-0.45 [facility] Eosinophils/100 WBC Auto (Bl d)on 08-25-2020 Eosinophils/100 WBC (Bld) 0.1 % [facility] Erythrocyte distribution wid th Auto (RBC) [Ratio]on 08-25-2020 Erythrocyte distribution width (RBC) [Ratio] 16.6 % 12.0-14.8 [facility] Estimated glomerular filtrat ion rate (GFR) non- Americanon 08-25-2020 GFR/1.73 sq M.predicted among non-blacks MDRD (S/P/Bld) [Vol rate/Area] 15 mL/Min [facility] Glucose Glucometer (BldC) [M ass/Vol]on 08-25-2020 Glucose [Mass/Vol] 122 mg/dL [facility] Comment on above: Random Glucose Refer ence Range is dependent on time and content of last meal. Glucose of more than 200 mg/dL in a nonstressed, ambulatory subject supports the diagnosis of Diabetes Mellitus. Hematocrit Auto (Bld) [Volum e fraction]on 08-25-2020 Hematocrit (Bld) [Volume fraction] 31.7 % 38.8-50.0 [facility] - Hematology and Cell countson 08-25-2020 Nucleated RBC/100 WBC (Bld) [Ratio] 0.2 % 0-0.5 [facility] Lymphocytes Auto (Bld) [#/Vo l]on 08-25-2020 Lymphocytes (Bld) [#/Vol] 1.1 10*3/uL 1.00-4.8 [facility] Lymphocytes/100 WBC Auto (Bl d)on 08-25-2020 Lymphocytes/100 WBC (Bld) 8.9 % [facility] MCH Auto (RBC) [Entitic mass ]on 08-25-2020 MCH (RBC) [Entitic mass] 26.2 pg 27.5-35.2 [facility] MCHC Auto (RBC) [Mass/Vol]on 08-25-2020 MCHC (RBC) [Mass/Vol] 31.9 g/dL 32.5-35.6 [facility] MCV Auto (RBC) [Entitic vol] on 08-25-2020 MCV (RBC) [Entitic vol] 82.3 fL 83.5-101 [facility] Monocytes Auto (Bld) [#/Vol] on 08-25-2020 Monocytes (Bld) [#/Vol] 1.2 10*3/uL 0.0-0.8 [facility] Monocytes/100 WBC Auto (Bld) on 08-25-2020 Monocytes/100 WBC (Bld) 9.6 % [facility] Neutrophils Auto (Bld) [#/Vo l]on 08-25-2020 Neutrophils (Bld) [#/Vol] 10.2 10*3/uL 1.8-7.7 [facility] Neutrophils/100 WBC Auto (Bl d)on 08-25-2020 Neutrophils/100 WBC (Bld) 81.3 % [facility] No Panel Informationon 08-25 Bedside Glucose Comment Glu2: cleaned meter [facility] Estimated GFR () 18 mL/Min [facility] Comment on above: GFR estimated refere nce range: According to KDOQI guidelines, <60 ml/min/1.73m2 is sufficient to diagnose a patient with chronic kidney disease. Pharmacy Creatinine Clearance (Chem 31.84 [facility] Platelet Estimate Normal Normal [facility] Platelet Morphology Comment Normal Normal [facility] Phosphate [Mass/volume] in S miki or Plasmaon 08-25-2020 Phosphate [Mass/Vol] 5.3 mg/dL 2.5-4.6 [facility] Platelet mean volume Auto (B ld) [Entitic vol]on 08-25-2020 Platelet mean volume (Bld) [Entitic vol] 7.1 fL 6.6-10.1 [facility] Platelets Auto (Bld) [#/Vol] on 08-25-2020 Platelets (Bld) [#/Vol] 388 10*3/uL 150-450 [facility] RBC Auto (Bld) [#/Vol]on RBC (Bld) [#/Vol] 3.85 10*6/uL 3.90-5.60 [facility] RBC morphologyon 08-25-2020 RBC morphology finding Nom (Bld) N/A [facility] Serum or plasma calcium joel urement (mass/volume)on 08-25-2020 Calcium [Mass/Vol] 8.7 mg/dL 8.2-10.2 [facility] Serum or plasma chloride faraz surement (moles/volume)on 08-25-2020 Chloride [Moles/Vol] 99 mmol/L 95-114 [facility] Serum or plasma glucose jole urement (mass/volume)on 08-25-2020 Glucose [Mass/Vol] 113 mg/dL 70-100 [facility] Comment on above: ADA recommended refe rence rangeRandom Glucose Reference Range is dependent on time and content of last meal. Glucose of more than 200 mg/dL in a nonstressed, ambulatory subject supports the diagnosis of Diabetes Mellitus. Serum or plasma potassium me asurement (moles/volume)on 08-25-2020 Potassium [Moles/Vol] 4.6 mmol/L 3.5-5.1 [facility] Serum or plasma sodium measu rement (moles/volume)on 08-25-2020 Sodium [Moles/Vol] 135 mmol/L 136-146 [facility] Serum or plasma total carbon dioxide measurement (moles/volume)on 08-25-2020 CO2 [Moles/Vol] 26.2 mmol/L 22.0-30.0 [facility] Serum or plasma urea nitroge n measurement (mass/volume)on 08-25-2020 Urea nitrogen [Mass/Vol] 75 mg/dL 01-19 [facility] Erythrocyte basophilic stipp ling detectionon 08-24-2020 Basophilic stippling LM Ql (Bld) Slight [facility] - Hematology and Cell countson 08-24-2020 Band form neutrophils/100 WBC (Bld) 1 % 0-5 [facility] Lymphocytes/100 WBC Auto (Bl d)on 08-24-2020 Lymphocytes/100 WBC (Bld) 6 % 18-42 [facility] Metamyelocytes/100 WBC Manua l cnt (Bld)on 08-24-2020 Metamyelocytes/100 WBC (Bld) 1 % 0-0 [facility] Monocytes/100 WBC Manual cnt (Bld)on 08-24-2020 Monocytes/100 WBC (Bld) 4 % 2-11 [facility] Myelocytes/100 WBC Manual cn t (Bld)on 08-24-2020 Myelocytes/100 WBC (Bld) 1 % 0-0 [facility] No Panel Informationon 08-24 Rouleau Slight [facility] Segmented neutrophils/100 WB C Manual cnt (Bld)on 08-24-2020 Segmented neutrophils/100 WBC (Bld) 87 % 50-70 [facility] No Panel Informationon 08-23 Bedside Glucose #[address]/rn [facility] Bedside Glucose #3 Comment Cleaned meter [facility] Serum nuclear antibody titer on 08-23-2020 Nuclear Ab (S) [Titer] Negative [facility] Comment on above: Negative <1:80 Ericsondra karrie 1:80 Positive >1:80Performed at: [employer] [address] [id number] Director: Mata Brian PhD, Phone: [phone] Serum or plasma rheumatoid f actor measurement (units/volume)on 08-23-2020 Rheumatoid factor Qn 20.6 [IU]/mL [facility] Comment on above: Performed at: [employer] [address] [id number] Director: Mata Brian PhD, Phone: [phone] CT biopsyon 08-22-2020 Transferrin [Mass/Vol] 104 mg/dL 180-380 [facility] Ferritin [Mass/volume] in Se rum or Plasmaon 08-22-2020 Ferritin [Mass/Vol] 334.8 ng/mL 23.9-336.2 [facility] Iron [Mass/volume] in Serum or Plasmaon 08-22-2020 Iron [Mass/Vol] 17 ug/dL 40-160 [facility] Iron binding capacity [Mass/ volume] in Serum or Plasmaon 08-22-2020 Iron binding capacity [Mass/Vol] 146 ug/dL 255-450 [facility] Iron saturation [Mass Fracti on] in Serum or Plasmaon 08-22-2020 Iron saturation [Mass fraction] 11.0 % 20-50 [facility] Creatine kinase [Enzymatic a ctivity/volume] in Serum or Plasmaon 08-21-2020 CK [Catalytic activity/Vol] 45 U/L 22-269 [facility] No Panel Informationon 08-21 Dohle Bodies Slight [facility] Serum or plasma cardiac trop onin I measurement (mass/volume)on 08-21-2020 Troponin I.cardiac [Mass/Vol] ng/mL 0-0.02 [facility] Comment on above: HÉCTOR HI Cut off value > or equal to 0.03 ng/mL in conjunction with clinical conditions of myocardial infarction.(www.escardio.org/guidelines) Serum or plasma creatine kin ase MB (CKMB)/total creatine kinase (CK) ratio by calculaon 08-21-2020 CK.MB Calc [Catalytic fraction] 5.1 % 0.00-2.50 [facility] Serum or plasma creatine kin ase MB measurement (mass/volume)on 08-21-2020 CK.MB [Mass/Vol] 2.3 ng/mL 0.6-6.3 [facility] Erythrocyte sedimentation ra te by Photometric methodon 08-20-2020 ESR Photometric method (Bld) [Velocity] 108 mm/hr 0-19 [facility] Serum or plasma C reactive p rotein measurement (mass/volume)on 08-20-2020 CRP [Mass/Vol] 19.4 mg/dL 0.0-1.0 [facility] ABO and Rh group post transf usion reaction Nom (Bld)on 08-19-2020 Microscopic observation Gram stain Nom (Unsp spec) [facility] Glucose mean value [Mass/vol ume] in Blood Estimated from glycated hemoglobinon 08-19-2020 Average glucose Estimated from glycated hemoglobin (Bld) [Mass/Vol] 298 mg/dL [facility] Hemoglobin A1c percentageon 08-19-2020 HbA1c (Bld) [Mass fraction] 12.0 % 4.3-5.6 [facility] Comment on above: Increased risk for d iabetes: 5.7 - 6.4diabetes: >6.4glycemic control for adults with diabetes: <7.0 Laboratory - Chemistry and C hemistry - challengeon 08-19-2020 Magnesium [Mass/Vol] 2.0 mg/dL 1.6-2.6 [facility] No Panel Informationon 08-19 25-Hydroxy Vitamin D Total 24.6 ng/mL 30-100 [facility] Comment on above: VITAMIN D STATUS 25( [place])VITAMIN D RANGE (ng/mL) Deficient <20 Insufficient 20 to <30Sufficient 30 to 100Reference: Aki ERVIN,Oriana NGUYEN, Elli JONAS, et al. Evaluation,treatment, and prevention of vitamin D deficiency; an Endocrine Society clinical practice guideline. JCEM. 2010; 96(7):1911-30. Activated partial thrombopla stin time (aPTT) in platelet poor plasma by coagulation aon 08-18-2020 aPTT Coag (PPP) [Time] 36.9 s 25.1-36.5 [facility] Albumin [Mass/volume] in Ser um or Plasmaon 08-18-2020 Albumin [Mass/Vol] 2.7 g/dL 3.2-5.5 [facility] Bacterial blood cultureon Bacteria identified Cx Nom (Bld) NO GROWTH 5 DAYS [facility] Basophils Auto (Bld) [#/Vol] on 08-18-2020 Basophils (Bld) [#/Vol] 0.0 10*3/uL 0.0-0.2 [facility] Basophils/100 WBC Auto (Bld) on 08-18-2020 Basophils/100 WBC (Bld) 0.3 % [facility] Beta-hydroxybutyric acid faraz surementon 08-18-2020 Beta hydroxybutyrate [Mass/Vol] 0.44 mmol/L 0.02-0.27 [facility] Blood hemoglobin measurement (mass/volume)on 08-18-2020 Hemoglobin (Bld) [Mass/Vol] 11.8 g/dL 13.0-17.0 [facility] Blood leukocytes automated c ount (number/volume)on 08-18-2020 WBC (Bld) [#/Vol] 15.3 10*3/uL 4.5-11.0 [facility] COVID-19 Detected/Not Detect edon 08-18-2020 SARS-CoV-2 (COVID-19) RNA SUDHA+non-probe Ql (Nph) Not detected Not Detecte [facility] Comment on above: This is a duplicate RP2.1 COVID (PCR) result to be used for statistical tracking purpose only. COVID-19 SOFIAon 08-18-2020 SARS-CoV+SARS-CoV-2 (COVID-19) Ag IA.rapid Ql (Resp) Negative Negative [facility] Comment on above: This is a duplicate Ayah SARS Antigen (AGUSTINA) result to be used for statistical tracking purpose only. Creatinine and Glomerular fi ltration rate.predicted panel (S/P/Bld)on 08-18-2020 Creatinine [Mass/Vol] 3.04 mg/dL 0.64-1.27 [facility] Eosinophils Auto (Bld) [#/Vo l]on 08-18-2020 Eosinophils (Bld) [#/Vol] 0.5 10*3/uL 0.0-0.45 [facility] Eosinophils/100 WBC Auto (Bl d)on 08-18-2020 Eosinophils/100 WBC (Bld) 3.4 % [facility] Erythrocyte distribution wid th Auto (RBC) [Ratio]on 08-18-2020 Erythrocyte distribution width (RBC) [Ratio] 16.3 % 12.0-14.8 [facility] Estimated glomerular filtrat ion rate (GFR) non- Americanon 08-18-2020 GFR/1.73 sq M.predicted among non-blacks MDRD (S/P/Bld) [Vol rate/Area] 21 mL/Min [facility] Globulin Calc (S) [Mass/Vol] on 08-18-2020 Globulin (S) [Mass/Vol] 4.4 g/dL [facility] Glucose Glucometer (BldC) [M ass/Vol]on 08-18-2020 Glucose [Mass/Vol] 388 mg/dL [facility] Comment on above: Random Glucose Refer ence Range is dependent on time and content of last meal. Glucose of more than 200 mg/dL in a nonstressed, ambulatory subject supports the diagnosis of Diabetes Mellitus. Hematocrit Auto (Bld) [Volum e fraction]on 08-18-2020 Hematocrit (Bld) [Volume fraction] 36.1 % 38.8-50.0 [facility] Laboratory - Chemistry and C hemistry - challengeon 08-18-2020 CO2 [Moles/Vol] 25.7 mmol/L 24.0-29.0 [facility] HCO3 (Bld) [Moles/Vol] 24.3 mmol/L 23.0-29.0 [facility] Magnesium [Mass/Vol] 2.2 mg/dL 1.6-2.6 [facility] Natriuretic peptide B (Bld) [Mass/Vol] 48.0 pg/mL 5-100 [facility] Laboratory - Coagulationon 0 08-18-2020 PT Coag (PPP) [Time] 11.7 s 9.0-12.9 [facility] Laboratory - Hematology and Cell countson 08-18-2020 Nucleated RBC/100 WBC (Bld) [Ratio] 0.1 % 0-0.5 [facility] Lymphocytes Auto (Bld) [#/Vo l]on 08-18-2020 Lymphocytes (Bld) [#/Vol] 0.9 10*3/uL 1.00-4.8 [facility] Lymphocytes/100 WBC Auto (Bl d)on 08-18-2020 Lymphocytes/100 WBC (Bld) 6.1 % [facility] MCH Auto (RBC) [Entitic mass ]on 08-18-2020 MCH (RBC) [Entitic mass] 27.2 pg 27.5-35.2 [facility] MCHC Auto (RBC) [Mass/Vol]on 08-18-2020 MCHC (RBC) [Mass/Vol] 32.6 g/dL 32.5-35.6 [facility] MCV Auto (RBC) [Entitic vol] on 08-18-2020 MCV (RBC) [Entitic vol] 83.5 fL 83.5-101 [facility] Monocytes Auto (Bld) [#/Vol] on 08-18-2020 Monocytes (Bld) [#/Vol] 1.5 10*3/uL 0.0-0.8 [facility] Monocytes/100 WBC Auto (Bld) on 08-18-2020 Monocytes/100 WBC (Bld) 10.1 % [facility] Neutrophils Auto (Bld) [#/Vo l]on 08-18-2020 Neutrophils (Bld) [#/Vol] 12.3 10*3/uL 1.8-7.7 [facility] Neutrophils/100 WBC Auto (Bl d)on 08-18-2020 Neutrophils/100 WBC (Bld) 80.1 % [facility] No Panel Informationon 08-18 Respiratory Panel (PCR) [facility] Blood Gas Critical Value See comment [facility] Comment on above: Critical Value fonseca d on: 08/18/2020 at 17:44 Blood Gas Sample Site Venous [facility] FiO2 21 % [facility] Venous Blood Base Excess -1.5 mmol/L -3.0-3.0 [facility] Venous Blood Oxygen Content 4.1 mmol/L 6.6-9.7 [facility] Venous Blood Oxygen Saturation 53.3 % 73.0-76.0 [facility] Venous Blood Partial Pressure CO2 45.2 mm[Hg] 38.0-50.0 [facility] Venous Blood Partial Pressure O2 24.4 mm[Hg] 35.0-45.0 [facility] Venous Blood pH 7.35 7.32-7.43 [facility] Estimated GFR () 26 mL/Min [facility] Comment on above: GFR estimated refere nce range: According to KDOQI guidelines, <60 ml/min/1.73m2 is sufficient to diagnose a patient with chronic kidney disease. Pharmacy Creatinine Clearance (Chem 38.57 [facility] Platelet mean volume Auto (B ld) [Entitic vol]on 08-18-2020 Platelet mean volume (Bld) [Entitic vol] 7.3 fL 6.6-10.1 [facility] Platelet poor plasma interna tional normalized ratio (INR) by coagulation assay (relaton 08-18-2020 INR Coag (PPP) [Relative time] 1.0 {INR} [facility] Comment on above: INR Therapeutic [...] 08-18-2020 Platelets (Bld) [#/Vol] 249 10*3/uL 150-450 [facility] Protein [Mass/volume] in Ser um or Plasmaon 08-18-2020 Protein [Mass/Vol] 7.1 g/dL 6.1-7.9 [facility] RBC Auto (Bld) [#/Vol]on RBC (Bld) [#/Vol] 4.32 10*6/uL 3.90-5.60 [facility] Serum or plasma alanine gomez otransferase measurement without P-5'-P (enzymatic activion 08-18-2020 ALT No additional P-5'-P [Catalytic activity/Vol] 13 U/L 10-60 [facility] Serum or plasma albumin/glob ulin mass ratioon 08-18-2020 Albumin/Globulin [Mass ratio] 0.6 {ratio} [facility] Serum or plasma alkaline kayode sphatase measurement (enzymatic activity/volume)on 08-18-2020 ALP [Catalytic activity/Vol] 88 U/L 32 [facility] Serum or plasma aspartate am inotransferase measurement (enzymatic activity/volume)on 08-18-2020 AST [Catalytic activity/Vol] 16 U/L 10- [facility] Serum or plasma calcium joel urement (mass/volume)on 08-18-2020 Calcium [Mass/Vol] 8.9 mg/dL 8.2-10.2 [facility] Serum or plasma cardiac trop onin I measurement (mass/volume)on 08-18-2020 Troponin I.cardiac [Mass/Vol] ng/mL 0-0.02 [facility] Comment on above: HÉCTOR HI Cut off value > or equal to 0.03 ng/mL in conjunction with clinical conditions of myocardial infarction.([email or web address].org/guidelines) Serum or plasma chloride faraz surement (moles/volume)on 08-18-2020 Chloride [Moles/Vol] 95 mmol/L 95-114 [facility] Serum or plasma glucose joel urement (mass/volume)on 08-18-2020 Glucose [Mass/Vol] 512 mg/dL 70-100 [facility] Comment on above: Results calledat 165 9 on 08/18/20 ADA recommended reference rangeRandom Glucose Reference Range is dependent on time and content of last meal. Glucose of more than 200 mg/dL in a nonstressed, ambulatory subject supports the diagnosis of Diabetes Mellitus. Serum or plasma potassium me asurement (moles/volume)on 08-18-2020 Potassium [Moles/Vol] 4.2 mmol/L 3.5-5.1 [facility] Serum or plasma sodium measu rement (moles/volume)on 08-18-2020 Sodium [Moles/Vol] 128 mmol/L 136-146 [facility] Serum or plasma total biliru bin measurement (mass/volume)on 08-18-2020 Bilirubin [Mass/Vol] 0.7 mg/dL 0.3-1.2 [facility] Serum or plasma total carbon dioxide measurement (moles/volume)on 08-18-2020 CO2 [Moles/Vol] 22.6 mmol/L 22.0-30.0 [facility] Serum or plasma urea nitroge n measurement (mass/volume)on 08-18-2020 Urea nitrogen [Mass/Vol] 27 mg/dL 01-19 [facility] CBC COMPLETE BLOOD COUNTon 07-22-2020 Erythrocyte distribution width (RBC) [Ratio] 15.0 % Normal 11.5-15.0 [facility] Comment on above: Order Comment: No: D o not add to previous draw Performed By: #### [id number] #### [facility] [address] Hematocrit (Bld) [Volume fraction] 32.4 % Low 39.0-50.0 [facility] Comment on above: Order Comment: No: D o not add to previous draw Performed By: #### [id number] #### [facility] [address] [facility] [place] [place] [address], [facility] Hemoglobin (Bld) [Mass/Vol] 9.5 g/dL Low 13.0-17.0 [facility] Comment on above: Order Comment: No: D o not add to previous draw Performed By: #### [id number] #### [facility] [address] [place] [address], [facility] MCH (RBC) [Entitic mass] 26.7 pg Low 27.0-33.0 [facility] Comment on above: Order Comment: No: D o not add to previous draw Performed By: #### [id number] #### [facility] [address] [place] [address], [facility] MCHC (RBC) [Mass/Vol] 29.3 g/dL Low 32.0-35.0 [facility] Comment on above: Order Comment: No: D o not add to previous draw Performed By: #### [id number] #### [facility] [address] [place] [id number], [facility] MCV (RBC) [Entitic vol] 91.0 fL Normal 82.0-98.0 [facility] Comment on above: Order Comment: No: D o not add to previous draw Performed By: #### [id number] #### [facility] [address] [place] [address], [facility] Nucleated RBC/100 WBC (Bld) [Ratio] 0 % Normal 0-0 [facility] Comment on above: Order Comment: No: D o not add to previous draw Performed By: #### [id number] #### [facility] [address] [place] [address], [place] PLAT CNT 276 10*3/uL Normal 150-400 [facility] Comment on above: Order Comment: No: D o not add to previous draw Performed By: #### [id number] #### [facility] [address] [facility] [place] [place] [address], [facility] RBC (Bld) [#/Vol] 3.56 10*6/uL Low 4.20-5.70 [facility] Comment on above: Order Comment: No: D o not add to previous draw Performed By: #### [id number] #### [facility] [address] [place] [id number], [facility] WBC (Bld) [#/Vol] 8.61 10*3/uL Normal 4.00-10.60 [facility] Comment on above: Order Comment: No: D o not add to previous draw Performed By: #### [id number] #### [facility] [address] [place] [address], [facility] COMP METABOLIC PANELon 07-22 Albumin [Mass/Vol] 2.7 g/dL Low 3.5-5.7 [facility] Comment on above: Order Comment: No: D o not add to previous draw Performed By: #### [id number] #### [facility] [address] [place] [address], [place] ALKALINE PHOSPH 70 IU/L Normal 34-104 [facility] Comment on above: Order Comment: No: D o not add to previous draw Performed By: #### [id number] #### [facility] [address] [place] [address], [place] ALT [Catalytic activity/Vol] 4 U/L Low 7-52 [facility] Comment on above: Order Comment: No: D o not add to previous draw Performed By: #### [id number] #### [facility] [address] [place] [address], [place] AST [Catalytic activity/Vol] 15 U/L Normal 13-39 [facility] Comment on above: Order Comment: No: D o not add to previous draw Performed By: #### [id number] #### [facility] [address] [place] [address], [place] Bilirubin [Mass/Vol] 0.2 mg/dL Low 0.3-1.0 [facility] Comment on above: Order Comment: No: D o not add to previous draw Performed By: #### [id number] #### [facility] [address] [place] [address], [place] Calcium [Mass/Vol] 8.9 mg/dL Normal 8.6-10.3 [facility] Comment on above: Order Comment: No: D o not add to previous draw Performed By: #### [id number] #### [facility] [address] [place] [address], [place] Chloride [Moles/Vol] 109 mmol/L High 98-107 [facility] Comment on above: Order Comment: No: D o not add to previous draw Performed By: #### [id number] #### [facility] [address] [place] [address], [place] CO2 [Moles/Vol] 24 mmol/L Normal 21-31 [facility] Comment on above: Order Comment: No: D o not add to previous draw Performed By: #### [id number] #### [facility] [address] [place] [address], [place] Creatinine [Mass/Vol] 3.39 mg/dL High 0.70-1.30 [facility] Comment on above: Order Comment: No: D o not add to previous draw Performed By: #### 8 [id number] #### [facility] [address] [place] [address], [facility] eGFR- 23 ml/min/1.73sq m Abnormal >60 [facility] Comment on above: Order Comment: No: D o not add to previous draw Performed By: #### 8 [id number] #### [facility] [address] [place] [address], [place] eGFR- non- 19 ml/min/1.73sq m Abnormal >60 [facility] Comment on above: Order Comment: No: D o not add to previous draw Performed By: #### [id number] #### [facility] [address] [place] [address], [place] Glucose [Mass/Vol] 90 mg/dL Normal 70-100 [facility] Comment on above: Order Comment: No: D o not add to previous draw Performed By: #### [id number] #### [facility] [address] [place] [address], [place] Potassium [Moles/Vol] 4.4 mmol/L Normal 3.5-5.1 [facility] Comment on above: Order Comment: No: D o not add to previous draw Performed By: #### [id number] #### [facility] [address] [place] [address], [place] Protein [Mass/Vol] 5.9 g/dL Low 6.0-8.3 [facility] Comment on above: Order Comment: No: D o not add to previous draw Performed By: #### [id number] #### [facility] [address] [place] [address], [place] Sodium [Moles/Vol] 140 mmol/L Normal 136-145 [facility] Comment on above: Order Comment: No: D o not add to previous draw Performed By: #### [id number] #### [facility] [address] [place] [address], [place] Urea nitrogen [Mass/Vol] 35 mg/dL High 7-25 [facility] Comment on above: Order Comment: No: D o not add to previous draw Performed By: #### [id number] #### [facility] [address] [place] [address], [place] POC GLUCOSE LABon 07-22-2020 Glucose [Mass/Vol] 192 mg/dL High 70-100 [facility] Comment on above: Performed By: #### 8 [id number] #### [facility] [address] [place] [address], [place] Glucose [Mass/Vol] 95 mg/dL Normal 70-100 [facility] Comment on above: Performed By: #### 5 [id number], [id number] #### [facility] [address] [place] [address], [place] Glucose [Mass/Vol] 123 mg/dL High 70-100 [facility] Comment on above: Performed By: #### 8 [id number] ####[facility] [place] [address], [place] ARTERIAL BLOOD GAS WITH ICAo n 07-21-2020 BASE EXCESS -2 mmol/L Normal -2-3 [facility] Comment on above: Performed By: #### 8 [id number] #### [facility] [address] [place] [address], [facility] [employer] FOCUS Normal [facility] Comment on above: Performed By: #### 8 [id number] #### [facility] [address] [place] [address], [place] HCO3 (Bld) [Moles/Vol] 24 mmol/L Normal 21-28 [facility] Comment on above: Performed By: #### 8 [id number] #### [facility] [address] [place] [address], [place] IONIZED CALCIUM 1.25 mmol/L Normal 1.13-1.32 [facility] Comment on above: Performed By: #### 8 [id number] #### [facility] [address] [place] [address], [place] LPM 4.0 LPM Normal [facility] Comment on above: Performed By: #### 8 [id number] #### [facility] [address] [place] [address], [place] MODALITY BIPAP Normal [facility] Comment on above: Performed By: #### 8 [id number] #### [facility] [address] [place] [address], [place] Oxygen (Bld) [Partial pressure] 91 mm[Hg] Normal 83-108 [facility] Comment on above: Performed By: #### 8 [id number] #### [facility] [address] [place] [address], [place] Oxygen saturation in Blood 95.9 % Normal 94.0-97.0 [facility] Comment on above: Performed By: #### 8 [id number] #### [facility] [address] [place] [address], [place] PCO2 47 mmHg High 35-45 [facility] Comment on above: Performed By: #### 8 [id number] #### [facility] [address] [place] [address], [facility] PEEP 8.0 CMH20 Normal [facility] Comment on above: Performed By: #### 8 [id number] #### [facility] [address] [place] [address], [facility] pH (Bld) 7.32 [pH] Low 7.35-7.45 [facility] Comment on above: Performed By: #### 8 [id number] #### [facility] [address] [place] [address], [facility] PRESSURE SUPPORT 16 Normal [facility] Comment on above: Performed By: #### 8 [id number] #### [facility] [address] [place] [address], [facility] BASE EXCESS -3 mmol/L Low -2-3 [facility] Comment on above: Performed By: #### 3 [id number] #### [facility] [address] [place] [address], [facility] [employer] NASAL CANNULA Normal [facility] Comment on above: Performed By: #### 3 8 #### [facility] [address] [place] [address], [place] HCO3 (Bld) [Moles/Vol] 25 mmol/L Normal 21-28 The [facility] Comment on above: Performed By: #### 3 8 #### [facility] [address] [place] [address], [facility] IONIZED CALCIUM 1.26 mmol/L Normal 1.13-1.32 The [facility] Comment on above: Performed By: #### 3 8 #### [facility] [address] [place] [address], [place] LPM 2.0 LPM Normal The [facility] Comment on above: Performed By: #### 3 8 #### [facility] [address] [place] [address], [place] Oxygen (Bld) [Partial pressure] 92 mm[Hg] Normal 83-108 The [facility] Comment on above: Performed By: #### 3 8 #### [facility] [address] [place] [address], [place] Oxygen saturation in Blood 95.7 % Normal 94.0-97.0 The [facility] Comment on above: Performed By: #### 3 8 #### [facility] [address] [place] [address], [place] PCO2 54 mmHg High 35-45 The [facility] Comment on above: Performed By: #### 3 8 #### [facility] [address] [place] [address], [place] pH (Bld) 7.27 [pH] Low 7.35-7.45 The [facility] Comment on above: Performed By: #### 3 8 #### [facility] [address] [place] [address], [place] BASIC METABOLIC PANELon 03-2 Calcium [Mass/Vol] 9.0 mg/dL Normal 8.6-10.3 The [facility] Comment on above: Order Comment: No: D o not add to previous drawPt not in room rn will return when back. Performed By: #### 3 4 #### [facility] [address] [place] [address], [place] Chloride [Moles/Vol] 106 mmol/L Normal 98-107 The [facility] Comment on above: Order Comment: No: D o not add to previous drawPt not in room rn will return when back. Performed By: #### 3 1943 #### [facility] [address] [place] [address], [place] CO2 [Moles/Vol] 25 mmol/L Normal 21-31 The [facility] Comment on above: Order Comment: No: D o not add to previous drawPt not in room rn will return when back. Performed By: #### 3 1943 #### [facility] [address] [place] [address], [facility] Creatinine [Mass/Vol] 3.75 mg/dL High 0.70-1.30 The [facility] Comment on above: Order Comment: No: D o not add to previous drawPt not in room rn will return when back. Performed By: #### 3 1943 #### [facility] [address] [place] [id number], [facility] eGFR- 20 ml/min/1.73sq m Abnormal >60 The [facility] Comment on above: Order Comment: No: D o not add to previous drawPt not in room rn will return when back. Performed By: #### 3 1943 #### [facility] [address] [place] [address], [facility] eGFR- non- 17 ml/min/1.73sq m Abnormal >60 The [facility] Comment on above: Order Comment: No: D o not add to previous drawPt not in room rn will return when back. Performed By: #### 3 1943 #### [facility] [address] [place] [id number], [facility] Glucose [Mass/Vol] 132 mg/dL High 70-100 The [facility] Comment on above: Order Comment: No: D o not add to previous drawPt not in room rn will return when back. Performed By: #### 3 1943 #### [facility] [address] [place] [address], [facility] Potassium [Moles/Vol] 5.0 mmol/L Normal 3.5-5.1 The [facility] Comment on above: Order Comment: No: D o not add to previous drawPt not in room rn will return when back. Performed By: #### 3 1943 #### [facility] [address] [place] [address], [facility] Sodium [Moles/Vol] 138 mmol/L Normal 136-145 The [facility] Comment on above: Order Comment: No: D o not add to previous drawPt not in room rn will return when back. Performed By: #### 3 1943 #### [facility] [address] [place] [address], [facility] Urea nitrogen [Mass/Vol] 37 mg/dL High 7-25 The [facility] Comment on above: Order Comment: No: D o not add to previous drawPt not in room rn will return when back. Performed By: #### 3 1943 #### [facility] [address] [place], [place] [address] CBC COMPLETE BLOOD COUNTon 07-21-2020 Erythrocyte distribution width (RBC) [Ratio] 15.0 % Normal 11.5-15.0 The [facility] Comment on above: Order Comment: No: D o not add to previous drawPt not in room rn will return when back. Performed By: #### 8 [id number] #### [facility] [address] [place] [address], [facility] Hematocrit (Bld) [Volume fraction] 33.9 % Low 39.0-50.0 The [facility] Comment on above: Order Comment: No: D o not add to previous drawPt not in room rn will return when back. Performed By: #### 8 [id number] #### [facility] [address] [facility] [place] [address], [facility] Hemoglobin (Bld) [Mass/Vol] 9.9 g/dL Low 13.0-17.0 The [facility] Comment on above: Order Comment: No: D o not add to previous drawPt not in room rn will return when back. Performed By: #### 8 [id number] #### [facility] [address] [place] [address], [facility] MCH (RBC) [Entitic mass] 26.9 pg Low 27.0-33.0 The [facility] Comment on above: Order Comment: No: D o not add to previous drawPt not in room rn will return when back. Performed By: #### 8 [id number] #### [facility] [address] [facility] [place] [address], [facility] MCHC (RBC) [Mass/Vol] 29.2 g/dL Low 32.0-35.0 The [facility] Comment on above: Order Comment: No: D o not add to previous drawPt not in room rn will return when back. Performed By: #### 8 [id number] #### [facility] [address] [facility] [place] [address], [facility] MCV (RBC) [Entitic vol] 92.1 fL Normal 82.0-98.0 The [facility] Comment on above: Order Comment: No: D o not add to previous drawPt not in room rn will return when back. Performed By: #### 8 [id number] #### [facility] [address] Nucleated RBC/100 WBC (Bld) [Ratio] 0 % Normal 0-0 The [facility] Comment on above: Order Comment: No: D o not add to previous drawPt not in room rn will return when back. Performed By: #### 8 [id number] #### [facility] [address] [place] [address], [facility] PLAT CNT 288 10*3/uL Normal 150-400 The [facility] Comment on above: Order Comment: No: D o not add to previous drawPt not in room rn will return when back. Performed By: #### 8 5499 #### [facility] [address] [place] [address], [facility] RBC (Bld) [#/Vol] 3.68 10*6/uL Low 4.20-5.70 The [facility] Comment on above: Order Comment: No: D o not add to previous drawPt not in room rn will return when back. Performed By: #### 8 5499 #### [facility] [address] [facility] [place] WBC (Bld) [#/Vol] 9.51 10*3/uL Normal 4.00-10.60 The [facility] Comment on above: Order Comment: No: D o not add to previous drawPt not in room rn will return when back. Performed By: #### 8 [id number] #### [address] CHEST WO CONTRASTon 07-21 CT CHEST WO CONTRAST [facility] Department of Radiology [address] [place] [id number] Patient Name: RASHARD LYMAN : 1960 Sex: M Age: Race: White Pt. Location: [id number] Patient Status: I Ordered Date: 07/21/2020 6:00:00 [...] represent a necrotizing pneumonia. Electronically signed: Manuel Sadlaña. Transcribed by: [email or web address], User Resident: Electronically Signed by: MANUEL SALDAÑA @ 07/21/2020 08:38 AM Normal The [facility] Comment on above: Order Comment: Left Peural Effusion POC GLUCOSE LABon 07-21-2020 Glucose [Mass/Vol] 134 mg/dL High 70-100 The [facility] Comment on above: Performed By: #### 5 0103 #### [facility] [address] [place] [address], [facility] Glucose [Mass/Vol] 88 mg/dL Normal 70-100 The [facility] Comment on above: Performed By: #### 8 [id number] #### [facility] [address] [facility] [place] [address], [facility] Glucose [Mass/Vol] 110 mg/dL High 70-100 The [facility] Comment on above: Performed By: #### 8 [id number] #### [facility] [address] [place] [address], [facility] Glucose [Mass/Vol] 118 mg/dL High 70-100 The [facility] Comment on above: Performed By: #### 5 7307, [address] #### [facility] [address] [place] [address], [place] Glucose [Mass/Vol] 137 mg/dL High 70-100 The [facility] Comment on above: Performed By: #### 5 7307, [address] #### [facility] [address] [place] [address], [facility] BASIC METABOLIC PANELon 03-2 Calcium [Mass/Vol] 8.4 mg/dL Low 8.6-10.3 The [facility] Comment on above: Order Comment: No: D o not add to previous draw Performed By: #### 8 [id number] #### [facility] [address] [place] [address], [place] Chloride [Moles/Vol] 107 mmol/L Normal 98-107 The [facility] Comment on above: Order Comment: No: D o not add to previous draw Performed By: #### 8 [id number] #### [facility] [address] [place] [address], [place] CO2 [Moles/Vol] 23 mmol/L Normal 21-31 The [facility] Comment on above: Order Comment: No: D o not add to previous draw Performed By: #### 8 [id number] #### [facility] [address] [place] [address], [place] Creatinine [Mass/Vol] 3.95 mg/dL High 0.70-1.30 The [facility] Comment on above: Order Comment: No: D o not add to previous draw Performed By: #### 8 5499 #### [facility] [address] [place] [address], [place] eGFR- 19 ml/min/1.73sq m Abnormal >60 The [facility] Comment on above: Order Comment: No: D o not add to previous draw Performed By: #### 8 [id number] #### [facility] [address] [place] [address], [facility] eGFR- non- 16 ml/min/1.73sq m Abnormal >60 The [facility] Comment on above: Order Comment: No: D o not add to previous draw Performed By: #### 8 5499 #### [facility] [address] [place] [id number], [facility] Glucose [Mass/Vol] 110 mg/dL High 70-100 The [facility] Comment on above: Order Comment: No: D o not add to previous draw Performed By: #### 8 [id number] #### [facility] [address] [place] [address], [facility] Potassium [Moles/Vol] 4.9 mmol/L Normal 3.5-5.1 The [facility] Comment on above: Order Comment: No: D o not add to previous draw Performed By: #### 8 [id number] #### [facility] [address] [place] [id number], [facility] Sodium [Moles/Vol] 137 mmol/L Normal 136-145 The [facility] Comment on above: Order Comment: No: D o not add to previous draw Performed By: #### 8 [id number] #### [facility] [address] [place] [address], [facility] Urea nitrogen [Mass/Vol] 37 mg/dL High 7-25 The [facility] Comment on above: Order Comment: No: D o not add to previous draw Performed By: #### 8 [id number] #### [facility] [address] [place] [id number], [facility] CBC W/DIFFon 07-20-2020 ABS IMM GRANS 0.1 10*3/uL Normal 0.0-0.2 The [facility] Comment on above: Order Comment: No: D o not add to previous draw Performed By: #### 8 [id number] #### [facility] [address] [place] [address], [facility] ABS NEUTROPHILS 5.9 10*3/uL Normal 1.6-7.6 The [facility] Comment on above: Order Comment: No: D o not add to previous draw Performed By: #### 8 [id number] #### [facility] [address] [place] [address], [facility] Basophils (Bld) [#/Vol] 0.1 10*3/uL Normal 0.0-0.2 The [facility] Comment on above: Order Comment: No: D o not add to previous draw Performed By: #### 8 [id number] #### [facility] [address] [place] [address], [facility] Basophils/100 WBC (Bld) 1.0 % Normal 0.0-1.0 The [facility] Comment on above: Order Comment: No: D o not add to previous draw Performed By: #### 8 [id number] #### [facility] [address] [place] [address], [facility] Eosinophils (Bld) [#/Vol] 0.4 10*3/uL Normal 0.0-0.5 The [facility] Comment on above: Order Comment: No: D o not add to previous draw Performed By: #### 8 [id number] #### [facility] [address] [place] [id number], [facility] Eosinophils/100 WBC (Bld) 5.1 % Normal 0.0-6.0 The [facility] Comment on above: Order Comment: No: D o not add to previous draw Performed By: #### 8 [id number] #### [facility] [address] [place] [address], [place] Erythrocyte distribution width (RBC) [Ratio] 15.4 % High 11.5-15.0 The [facility] Comment on above: Order Comment: No: D o not add to previous draw Performed By: #### 8 [id number] #### [facility] [address] [place] [address], [facility] Hematocrit (Bld) [Volume fraction] 35.7 % Low 39.0-50.0 The [facility] Comment on above: Order Comment: No: D o not add to previous draw Performed By: #### 8 [id number] #### [facility] [address] [place] [address], [facility] Hemoglobin (Bld) [Mass/Vol] 10.3 g/dL Low 13.0-17.0 The [facility] Comment on above: Order Comment: No: D o not add to previous draw Performed By: #### 8 [id number] #### [facility] [address] [place] [address], [facility] IMM PLATELET FRAC 0.4 % Low 0.8-6.3 The [facility] Comment on above: Order Comment: No: D o not add to previous draw Performed By: #### 8 [id number] #### [facility] [address] [place] [address], [facility] IMMATURE GRANS 1.1 % High 0.0-1.0 The [facility] Comment on above: Order Comment: No: D o not add to previous draw Performed By: #### 8 [id number] #### [facility] [address] [facility] [place] [address], [facility] Lymphocytes (Bld) [#/Vol] 0.8 10*3/uL Low 1.2-4.0 The [facility] Comment on above: Order Comment: No: D o not add to previous draw Performed By: #### 8 [id number] #### [facility] [address] [place] [address], [facility] Lymphocytes/100 WBC (Bld) 9.3 % Low 20.0-45.0 The [facility] Comment on above: Order Comment: No: D o not add to previous draw Performed By: #### 8 [id number] #### [facility] [address] [place] [address], [facility] MCH (RBC) [Entitic mass] 27.4 pg Normal 27.0-33.0 The [facility] Comment on above: Order Comment: No: D o not add to previous draw Performed By: #### 8 [id number] #### [facility] [address] [place] [address], [facility] MCHC (RBC) [Mass/Vol] 28.9 g/dL Low 32.0-35.0 The [facility] Comment on above: Order Comment: No: D o not add to previous draw Performed By: #### 8 [id number] #### [facility] [address] [facility] [place] [id number], [facility] MCV (RBC) [Entitic vol] 94.9 fL Normal 82.0-98.0 The [facility] Comment on above: Order Comment: No: D o not add to previous draw Performed By: #### 8 [id number] #### [facility] [address] [place] [id number], [facility] Monocytes (Bld) [#/Vol] 1.1 10*3/uL High 0.1-1.0 The [facility] Comment on above: Order Comment: No: D o not add to previous draw Performed By: #### 8 [id number] #### [facility] [address] [place] [id number], [facility] MONOS 12.9 % High 5.0-12.0 The [facility] Comment on above: Order Comment: No: D o not add to previous draw Performed By: #### 8 [id number] #### [facility] [address] [place] [id number], [facility] Neutrophils/100 WBC (Bld) 70.6 % Normal 40.0-72.0 The [facility] Comment on above: Order Comment: No: D o not add to previous draw Performed By: #### 8 [id number] #### [facility] [address] [place] [address], [place] Nucleated RBC/100 WBC (Bld) [Ratio] 0 % Normal 0-0 The [facility] Comment on above: Order Comment: No: D o not add to previous draw Performed By: #### 8 [id number] #### [facility] [address] [place] [address], [place] PLAT ESTIMATE Normal Normal The [facility] Comment on above: Order Comment: No: D o not add to previous draw Result Comment: EDTA smear shows platelet clumping, see platelet estimate Performed By: #### 8 [id number] #### [facility] [address] [place] [address], [place] RBC (Bld) [#/Vol] 3.76 10*6/uL Low 4.20-5.70 The [facility] Comment on above: Order Comment: No: D o not add to previous draw Performed By: #### 8 [id number] #### [facility] [address] [place] [address], [place] WBC (Bld) [#/Vol] 8.30 10*3/uL Normal 4.00-10.60 The [facility] Comment on above: Order Comment: No: D o not add to previous draw Performed By: #### 8 [id number] #### [facility] [address] [place] [address], [place] POC GLUCOSE LABon 07-20-2020 Glucose [Mass/Vol] 110 mg/dL High 70-100 The [facility] Comment on above: Performed By: #### 5 0103 #### [facility] [address] [place] [address], [place] Glucose [Mass/Vol] 124 mg/dL High 70-100 The [facility] Comment on above: Performed By: #### 5 0103 #### [facility] [address] [place] [address], [place] Glucose [Mass/Vol] 111 mg/dL High 70-100 The [facility] Comment on above: Performed By: #### 5 7307, [address] #### [place] [address], [facility] PORTABLE CHEST 1 VIEWon 06-28 PORTABLE CHEST 1 VIEW [facility] Department of Radiology [address] [place] [id number] Patient Name: RASHARD LYMAN : 1960 Sex: M Age: Race: White Pt. Location: [id number] Patient Status: I Ordered Date: 07/20/2020 6:00:00 [...] unchanged Electronically signed: Manuel Saldaña. Transcribed by: [email or web address], User Resident: Electronically Signed by: MANUEL SALDAÑA @ 07/20/2020 09:07 AM Normal The [facility] Comment on above: Order Comment: Evalu ate for Effusion BASIC METABOLIC PANELon 03- Calcium [Mass/Vol] 8.4 mg/dL Low 8.6-10.3 The [facility] Comment on above: Order Comment: No: D o not add to previous draw Performed By: #### 3 1943 #### [facility] [address] [place] [address], [place] Chloride [Moles/Vol] 104 mmol/L Normal 98-107 The [facility] Comment on above: Order Comment: No: D o not add to previous draw Performed By: #### 3 1943 #### [facility] [address] [place] [address], [place] CO2 [Moles/Vol] 24 mmol/L Normal 21-31 The [facility] Comment on above: Order Comment: No: D o not add to previous draw Performed By: #### 3 1943 #### [facility] [address] [place] [address], [place] Creatinine [Mass/Vol] 4.15 mg/dL High 0.70-1.30 The [facility] Comment on above: Order Comment: No: D o not add to previous draw Performed By: #### 3 1943 #### [facility] [address] [place] [address], [place] eGFR- 18 ml/min/1.73sq m Abnormal >60 The [facility] Comment on above: Order Comment: No: D o not add to previous draw Performed By: #### 3 1943 #### [facility] [address] [place] [address], [place] eGFR- non- 15 ml/min/1.73sq m Abnormal >60 The [facility] Comment on above: Order Comment: No: D o not add to previous draw Performed By: #### 3 1943 #### [facility] [address] [place] [address], [place] Glucose [Mass/Vol] 180 mg/dL High 70-100 The [facility] Comment on above: Order Comment: No: D o not add to previous draw Performed By: #### 3 1943 #### [facility] [address] [place] [address], [facility] Potassium [Moles/Vol] 4.4 mmol/L Normal 3.5-5.1 The [facility] Comment on above: Order Comment: No: D o not add to previous draw Performed By: #### 3 1943 #### [facility] [address] [place] [address], [place] Sodium [Moles/Vol] 135 mmol/L Low 136-145 The [facility] Comment on above: Order Comment: No: D o not add to previous draw Performed By: #### 3 1943 #### [facility] [address] [place] [address], [facility] Urea nitrogen [Mass/Vol] 37 mg/dL High 7-25 The [facility] Comment on above: Order Comment: No: D o not add to previous draw Performed By: #### 3 1943 #### [facility] [address] [place] [address], [facility] CBC COMPLETE BLOOD COUNTon 0 - Erythrocyte distribution width (RBC) [Ratio] 14.8 % Normal 11.5-15.0 The [facility] Comment on above: Order Comment: No: D o not add to previous draw Performed By: #### 8 [id number] #### [facility] [address] [place] [address], [place] Hematocrit (Bld) [Volume fraction] 30.9 % Low 39.0-50.0 The [facility] Comment on above: Order Comment: No: D o not add to previous draw Performed By: #### 8 [id number] #### [facility] [address] [place] [address], [facility] Hemoglobin (Bld) [Mass/Vol] 9.0 g/dL Low 13.0-17.0 The [facility] Comment on above: Order Comment: No: D o not add to previous draw Performed By: #### 8 [id number] #### [facility] [address] [place] [address], [facility] MCH (RBC) [Entitic mass] 26.6 pg Low 27.0-33.0 The [facility] Comment on above: Order Comment: No: D o not add to previous draw Performed By: #### 8 [id number] #### [facility] [address] [place] [address], [facility] MCHC (RBC) [Mass/Vol] 29.1 g/dL Low 32.0-35.0 The [facility] Comment on above: Order Comment: No: D o not add to previous draw Performed By: #### 8 [id number] #### [facility] [address] [place] [address], [facility] MCV (RBC) [Entitic vol] 91.4 fL Normal 82.0-98.0 The [facility] Comment on above: Order Comment: No: D o not add to previous draw Performed By: #### 8 [id number] #### [facility] [address] [place] [address], [facility] Nucleated RBC/100 WBC (Bld) [Ratio] 0 % Normal 0-0 The [facility] Comment on above: Order Comment: No: D o not add to previous draw Performed By: #### 8 [id number] #### [facility] [address] [facility] [place] [address], [facility] PLAT CNT 279 10*3/uL Normal 150-400 The [facility] Comment on above: Order Comment: No: D o not add to previous draw Performed By: #### 8 [id number] #### [facility] [address] [place] [address], [facility] RBC (Bld) [#/Vol] 3.38 10*6/uL Low 4.20-5.70 The [facility] Comment on above: Order Comment: No: D o not add to previous draw Performed By: #### 8 [id number] #### [facility] [address] [place] [address], [facility] WBC (Bld) [#/Vol] 6.73 10*3/uL Normal 4.00-10.60 The [facility] Comment on above: Order Comment: No: D o not add to previous draw Performed By: #### 8 [id number] #### [facility] [address] Operative Reporton Operative Report MR#: [id number] I [facility] Pt. Name: [facility] #: [id number] Discharge Date: Birthdate: 1960 OPERATIVE REPORT DATE OF SURGERY: 07/19/2020 SURGEON: Nima Wynne MD Operative Note Medical Thoracoscopy, lysis of adhesions, pleural biopsy Procedure Date: 07/19/2020 Procedure: Medical Thoracoscopy, pleural biopsies, lysis of adhesions, and chest tube placement Preoperative Diagnosis: Loculated pleural effusion Post-operative Diagnosis: same Surgeons: Nima Wynne MD Kettle Cook: Davis Pham MD Type of Anesthesia: MAC [...] Wynne MD Date Trans: 07/19/2020 02:43 P/ [id number] cc: Jose Juarez D.O. [address] [facility] [id number] Normal The [facility] POC GLUCOSE LABon 07-19-2020 Glucose [Mass/Vol] 219 mg/dL High 70-100 The [facility] Comment on above: Performed By: #### 5 [id number], [id number] #### [facility] [address] [place] [address], [place] Glucose [Mass/Vol] 152 mg/dL High 70-100 The [facility] Comment on above: Performed By: #### 5 7307, 77811 #### [facility] [address] [place] [address], [facility] Glucose [Mass/Vol] 183 mg/dL High 70-100 The [facility] Comment on above: Performed By: #### 5 0103 #### [facility] [address] [place] [address], [facility] Glucose [Mass/Vol] 206 mg/dL High 70-100 The [facility] Comment on above: Performed By: #### 8 [id number] ####[facility] [place] [address], [facility] Glucose [Mass/Vol] 179 mg/dL High 70-100 The [facility] Comment on above: Performed By: #### 5 0103 #### [facility] [address] [place] [address], [facility] PORTABLE CHEST 1 VIEWon 06-28 PORTABLE CHEST 1 VIEW [facility] Department of Radiology [address] [place] [id number] Patient Name: RASHARD LYMAN : 1960 Sex: M Age: Race: White Pt. Location: [address] [place] [address] Patient Status: I Ordered Date: 07/19/2020 2:20:00 [...] infiltration Electronically signed: Pedro Baldwin. Transcribed by: [id number], User Resident: PEDRO BALDWIN Electronically Signed by: PEDRO BALDWIN @ 07/19/2020 03:03 PM I personally read this/these film(s) with this resident Normal The [facility] Comment on above: Order Comment: Check Chest Tube Position BASIC METABOLIC PANELon 06-28 Calcium [Mass/Vol] 8.4 mg/dL Low 8.6-10.3 The [facility] Comment on above: Order Comment: No: D o not add to previous draw Performed By: #### 8 [id number] #### [facility] [address] [place] [address], [place] Chloride [Moles/Vol] 105 mmol/L Normal 98-107 The [facility] Comment on above: Order Comment: No: D o not add to previous draw Performed By: #### 8 [id number] #### [facility] [address] [place] [address], [place] CO2 [Moles/Vol] 25 mmol/L Normal 21-31 The [facility] Comment on above: Order Comment: No: D o not add to previous draw Performed By: #### 8 [id number] #### [facility] [address] [place] [address], [place] Creatinine [Mass/Vol] 4.54 mg/dL High 0.70-1.30 The [facility] Comment on above: Order Comment: No: D o not add to previous draw Performed By: #### 8 [id number] #### [facility] [address] [place] [address], [place] eGFR- 16 ml/min/1.73sq m Abnormal >60 The [facility] Comment on above: Order Comment: No: D o not add to previous draw Performed By: #### 8 [id number] #### [facility] [address] [place] [address], [place] eGFR- non- 13 ml/min/1.73sq m Abnormal >60 The [facility] Comment on above: Order Comment: No: D o not add to previous draw Performed By: #### 8 [id number] #### [facility] [address] [place] [address], [place] Glucose [Mass/Vol] 118 mg/dL High 70-100 The [facility] Comment on above: Order Comment: No: D o not add to previous draw Performed By: #### 8 [id number] #### [facility] [address] [place] [address], [place] Potassium [Moles/Vol] 4.5 mmol/L Normal 3.5-5.1 The [facility] Comment on above: Order Comment: No: D o not add to previous draw Performed By: #### 8 [id number] #### [facility] [address] [place] [address], [place] Sodium [Moles/Vol] 137 mmol/L Normal 136-145 The [facility] Comment on above: Order Comment: No: D o not add to previous draw Performed By: #### 8 [id number] #### [facility] [address] Urea nitrogen [Mass/Vol] 40 mg/dL High 7-25 The [facility] Comment on above: Order Comment: No: D o not add to previous draw Performed By: #### 8 [id number] #### [facility] [address] [place] [address], [facility] CBC W/DIFFon 07-18-2020 ABS IMM GRANS 0.1 10*3/uL Normal 0.0-0.2 The [facility] Comment on above: Order Comment: No: D o not add to previous draw Performed By: #### 8 [id number] #### [facility] [address] [place] [address], [facility] ABS NEUTROPHILS 5.0 10*3/uL Normal 1.6-7.6 The [facility] Comment on above: Order Comment: No: D o not add to previous draw Performed By: #### 8 [id number] #### [facility] [address] [place] [address], [facility] Basophils (Bld) [#/Vol] 0.0 10*3/uL Normal 0.0-0.2 The [facility] Comment on above: Order Comment: No: D o not add to previous draw Performed By: #### 8 [id number] #### [facility] [address] [place] [address], [facility] Basophils/100 WBC (Bld) 0.4 % Normal 0.0-1.0 The [facility] Comment on above: Order Comment: No: D o not add to previous draw Performed By: #### 8 [id number] #### [facility] [address] [place] [address], [facility] Eosinophils (Bld) [#/Vol] 0.6 10*3/uL High 0.0-0.5 The [facility] Comment on above: Order Comment: No: D o not add to previous draw Performed By: #### 8 [id number] #### [facility] [address] [place] [address], [facility] Eosinophils/100 WBC (Bld) 6.8 % High 0.0-6.0 The [facility] Comment on above: Order Comment: No: D o not add to previous draw Performed By: #### 8 [id number] #### [facility] [address] [place] [address], [facility] Erythrocyte distribution width (RBC) [Ratio] 14.8 % Normal 11.5-15.0 The [facility] Comment on above: Order Comment: No: D o not add to previous draw Performed By: #### 8 [id number] #### [facility] [address] [facility] [place] [address], [facility] Hematocrit (Bld) [Volume fraction] 31.9 % Low 39.0-50.0 The [facility] Comment on above: Order Comment: No: D o not add to previous draw Performed By: #### 8 [id number] #### [facility] [address] [facility] Hemoglobin (Bld) [Mass/Vol] 9.4 g/dL Low 13.0-17.0 The [facility] Comment on above: Order Comment: No: D o not add to previous draw Performed By: #### 8 [id number] #### [facility] [address] [facility] [place] [address], [facility] IMMATURE GRANS 1.7 % High 0.0-1.0 The [facility] Comment on above: Order Comment: No: D o not add to previous draw Performed By: #### 8 [id number] #### [facility] [address] [place] [address], [facility] Lymphocytes (Bld) [#/Vol] 1.2 10*3/uL Normal 1.2-4.0 The [facility] Comment on above: Order Comment: No: D o not add to previous draw Performed By: #### 8 [id number] #### [facility] [address] [place] [address], [facility] Lymphocytes/100 WBC (Bld) 14.8 % Low 20.0-45.0 The [facility] Comment on above: Order Comment: No: D o not add to previous draw Performed By: #### 8 [id number] #### [facility] [address] [place] [id number], [facility] MCH (RBC) [Entitic mass] 26.9 pg Low 27.0-33.0 The [facility] Comment on above: Order Comment: No: D o not add to previous draw Performed By: #### 8 [id number] #### [facility] [address] [place] [address], [facility] MCHC (RBC) [Mass/Vol] 29.5 g/dL Low 32.0-35.0 The [facility] Comment on above: Order Comment: No: D o not add to previous draw Performed By: #### 8 [id number] #### [facility] [address] [place] [address], [facility] MCV (RBC) [Entitic vol] 91.1 fL Normal 82.0-98.0 The [facility] Comment on above: Order Comment: No: D o not add to previous draw Performed By: #### 8 [id number] #### [facility] [address] [place] [address], [facility] Monocytes (Bld) [#/Vol] 1.1 10*3/uL High 0.1-1.0 The [facility] Comment on above: Order Comment: No: D o not add to previous draw Performed By: #### 8 [id number] #### [facility] [address] [place] [id number], [facility] MONOS 13.4 % High 5.0-12.0 The [facility] Comment on above: Order Comment: No: D o not add to previous draw Performed By: #### 8 [id number] #### [facility] [address] [place] [id number], [facility] Neutrophils/100 WBC (Bld) 62.9 % Normal 40.0-72.0 The [facility] Comment on above: Order Comment: No: D o not add to previous draw Performed By: #### 8 [id number] #### [facility] [address] [place] [address], [facility] Nucleated RBC/100 WBC (Bld) [Ratio] 0 % Normal 0-0 The [facility] Comment on above: Order Comment: No: D o not add to previous draw Performed By: #### 8 [id number] #### [facility] [address] [place] [address], [facility] PLAT CNT 296 10*3/uL Normal 150-400 The [facility] Comment on above: Order Comment: No: D o not add to previous draw Performed By: #### 8 [id number] #### [facility] [address] [place] [address], [facility] RBC (Bld) [#/Vol] 3.50 10*6/uL Low 4.20-5.70 The [facility] Comment on above: Order Comment: No: D o not add to previous draw Performed By: #### 8 [id number] #### [facility] [address] [place] [address], [facility] WBC (Bld) [#/Vol] 8.03 10*3/uL Normal 4.00-10.60 The [facility] Comment on above: Order Comment: No: D o not add to previous draw Performed By: #### 8 [id number] #### [facility] [address] [place] [address], [facility] POC GLUCOSE LABon 07-18-2020 Glucose [Mass/Vol] 192 mg/dL High 70-100 The [facility] Comment on above: Performed By: #### 5 7307, 44267 #### [facility] [address] [place] [address], [place] Glucose [Mass/Vol] 153 mg/dL High 70-100 The [facility] Comment on above: Performed By: #### 5 7307, 95195 #### [facility] [address] [place] [address], [place] Glucose [Mass/Vol] 80 mg/dL Normal 70-100 The [facility] Comment on above: Performed By: #### 5 7307, 07578 #### [facility] [address] [place] [address], [place] Glucose [Mass/Vol] 48 mg/dL Critically low 70-100 Th e [facility] Comment on above: Order Comment: Left Peural Effusion Performed By: #### 8 [id number] ####[facility] [place] [address], [place] Glucose [Mass/Vol] 120 mg/dL High 70-100 The [facility] Comment on above: Performed By: #### 5 0103 #### [facility] [address] [place] [address], [place] Glucose [Mass/Vol] 112 mg/dL High 70-100 The [facility] Comment on above: Performed By: #### 5 7307, 73160 #### [facility] [address] [place] [address], [place] POC SARS COV2 ANTIGEN NEGATI VEon 07-18-2020 POC SARS COV2 ANTIGEN NEG CANCELED Normal NEGATIVE The [facility] Comment on above: Result Comment: The released value NEGATIVE was canceled by [email or web address] on 07/19/2020 07:11 Performed By: #### 3 1944 #### [facility] [address] [place] [address], [place] POC SARS COV2 ANTIGEN NEG Negative Normal NEGATIVE The [facility] Comment on above: Result Comment: Nega tive [...] Accreditation. Performed By: #### 8 [id number] #### [facility] [address] [place] [address], [facility] BASIC METABOLIC PANELon 03-2 Calcium [Mass/Vol] 8.2 mg/dL Low 8.6-10.3 The [facility] Comment on above: Order Comment: No: D o not add to previous draw Performed By: #### 3 1943 #### [facility] [address] [place] [address], [facility] Chloride [Moles/Vol] 101 mmol/L Normal 98-107 The [facility] Comment on above: Order Comment: No: D o not add to previous draw Performed By: #### 3 1943 #### [facility] [address] [place] [address], [facility] CO2 [Moles/Vol] 25 mmol/L Normal 21-31 The [facility] Comment on above: Order Comment: No: D o not add to previous draw Performed By: #### 3 1943 #### [facility] [address] [place] [id number], [facility] Creatinine [Mass/Vol] 3.64 mg/dL High 0.70-1.30 The [facility] Comment on above: Order Comment: No: D o not add to previous draw Performed By: #### 3 1943 #### [facility] [address] [place] [address], [place] eGFR- 21 ml/min/1.73sq m Abnormal >60 The [facility] Comment on above: Order Comment: No: D o not add to previous draw Performed By: #### 3 1943 #### [facility] [address] [place] [address], [place] eGFR- non- 17 ml/min/1.73sq m Abnormal >60 The [facility] Comment on above: Order Comment: No: D o not add to previous draw Performed By: #### 3 1943 #### [facility] [address] [place] [address], [place] Glucose [Mass/Vol] 124 mg/dL High 70-100 The [facility] Comment on above: Order Comment: No: D o not add to previous draw Performed By: #### 3 1943 #### [facility] [address] [place] [address], [place] Potassium [Moles/Vol] 4.3 mmol/L Normal 3.5-5.1 The [facility] Comment on above: Order Comment: No: D o not add to previous draw Performed By: #### 3 1943 #### [facility] [address] [place] [address], [place] Sodium [Moles/Vol] 134 mmol/L Low 136-145 The [facility] Comment on above: Order Comment: No: D o not add to previous draw Performed By: #### 3 1943 #### [facility] [address] [place] [address], [place] Urea nitrogen [Mass/Vol] 36 mg/dL High 7-25 The [facility] Comment on above: Order Comment: No: D o not add to previous draw Performed By: #### 3 1943 #### [facility] [address] [place] [address], [facility] CBC W/DIFFon 07-17-2020 ABS IMM GRANS 0.2 10*3/uL Normal 0.0-0.2 The [facility] Comment on above: Order Comment: No: D o not add to previous draw Performed By: #### 8 [id number] #### [facility] [address] [facility] [place] [address], [facility] ABS NEUTROPHILS 5.8 10*3/uL Normal 1.6-7.6 The [facility] Comment on above: Order Comment: No: D o not add to previous draw Performed By: #### 8 [id number] #### [facility] [address] [facility] [place] [address], [facility] Basophils (Bld) [#/Vol] 0.1 10*3/uL Normal 0.0-0.2 The [facility] Comment on above: Order Comment: No: D o not add to previous draw Performed By: #### 8 [id number] #### [facility] [address] [facility] [place] [address], [facility] Basophils/100 WBC (Bld) 0.6 % Normal 0.0-1.0 The [facility] Comment on above: Order Comment: No: D o not add to previous draw Performed By: #### 8 [id number] #### [facility] [address] [facility] [place] [address], [facility] Eosinophils (Bld) [#/Vol] 0.6 10*3/uL High 0.0-0.5 The [facility] Comment on above: Order Comment: No: D o not add to previous draw Performed By: #### 8 [id number] #### [facility] [address] [facility] [place] [address], [facility] Eosinophils/100 WBC (Bld) 7.0 % High 0.0-6.0 The [facility] Comment on above: Order Comment: No: D o not add to previous draw Performed By: #### 8 [id number] #### [facility] [address] Erythrocyte distribution width (RBC) [Ratio] 14.8 % Normal 11.5-15.0 The [facility] Comment on above: Order Comment: No: D o not add to previous draw Performed By: #### 8 [id number] #### [facility] [address] [place] [address], [facility] Hematocrit (Bld) [Volume fraction] 30.0 % Low 39.0-50.0 The [facility] Comment on above: Order Comment: No: D o not add to previous draw Performed By: #### 8 [id number] #### [facility] [address] [facility] [place] [address], [facility] Hemoglobin (Bld) [Mass/Vol] 9.2 g/dL Low 13.0-17.0 The [facility] Comment on above: Order Comment: No: D o not add to previous draw Performed By: #### 8 [id number] #### [facility] [address] [place] [address], [facility] IMMATURE GRANS 1.7 % High 0.0-1.0 The [facility] Comment on above: Order Comment: No: D o not add to previous draw Performed By: #### 8 [id number] #### [facility] [address] [facility] [place] [address], [facility] Lymphocytes (Bld) [#/Vol] 1.3 10*3/uL Normal 1.2-4.0 The [facility] Comment on above: Order Comment: No: D o not add to previous draw Performed By: #### 8 [id number] #### [facility] [address] [place] [id number], [facility] Lymphocytes/100 WBC (Bld) 14.3 % Low 20.0-45.0 The [facility] Comment on above: Order Comment: No: D o not add to previous draw Performed By: #### 8 [id number] #### [facility] [address] [place] [address], [facility] MCH (RBC) [Entitic mass] 27.3 pg Normal 27.0-33.0 The [facility] Comment on above: Order Comment: No: D o not add to previous draw Performed By: #### 8 [id number] #### [facility] [address] [place] [address], [facility] MCHC (RBC) [Mass/Vol] 30.7 g/dL Low 32.0-35.0 The [facility] Comment on above: Order Comment: No: D o not add to previous draw Performed By: #### 8 [id number] #### [facility] [address] [place] [address], [facility] MCV (RBC) [Entitic vol] 89.0 fL Normal 82.0-98.0 The [facility] Comment on above: Order Comment: No: D o not add to previous draw Performed By: #### 8 [id number] #### [facility] [address] [place] [id number], [facility] Monocytes (Bld) [#/Vol] 1.0 10*3/uL Normal 0.1-1.0 The [facility] Comment on above: Order Comment: No: D o not add to previous draw Performed By: #### 8 [id number] #### [facility] [address] [place] [address], [facility] [facility] 10.9 % Normal 5.0-12.0 The [facility] Comment on above: Order Comment: No: D o not add to previous draw Performed By: #### 8 [id number] #### [facility] [address] [place] [address], [facility] Neutrophils/100 WBC (Bld) 65.5 % Normal 40.0-72.0 The [facility] Comment on above: Order Comment: No: D o not add to previous draw Performed By: #### 8 [id number] #### [facility] [address] [place] [address], [facility] Nucleated RBC/100 WBC (Bld) [Ratio] 0 % Normal 0-0 The [facility] Comment on above: Order Comment: No: D o not add to previous draw Performed By: #### 8 [id number] #### [facility] [address] [place] [address], [place] PLAT CNT 293 10*3/uL Normal 150-400 The [facility] Comment on above: Order Comment: No: D o not add to previous draw Performed By: #### 8 [id number] #### [facility] [address] [place] [address], [place] RBC (Bld) [#/Vol] 3.37 10*6/uL Low 4.20-5.70 The [facility] Comment on above: Order Comment: No: D o not add to previous draw Performed By: #### 8 [id number] #### [facility] [address] [place] [address], [place] WBC (Bld) [#/Vol] 8.86 10*3/uL Normal 4.00-10.60 The [facility] Comment on above: Order Comment: No: D o not add to previous draw Performed By: #### 8 [id number] #### [facility] [address] [place] [address], [place] POC GLUCOSE LABon 07-17-2020 Glucose [Mass/Vol] 101 mg/dL High 70-100 The [facility] Comment on above: Performed By: #### 5 [id number], [id number] #### [facility] [address] [place] [address], [place] Glucose [Mass/Vol] 76 mg/dL Normal 70-100 The [facility] Comment on above: Performed By: #### 5 7307, 53085 #### [facility] [address] [place] [address], [place] Glucose [Mass/Vol] 75 mg/dL Normal 70-100 The [facility] Comment on above: Performed By: #### 8 [id number] ####[facility] [place] [address], [place] Glucose [Mass/Vol] 198 mg/dL High 70-100 The [facility] Comment on above: Performed By: #### 8 [id number] ####[facility] [place] [address], [place] Glucose [Mass/Vol] 205 mg/dL High 70-100 The [facility] Comment on above: Performed By: #### 3 0318 #### [facility] [address] [place] [address], [place] Glucose [Mass/Vol] 187 mg/dL High 70-100 The [facility] Comment on above: Performed By: #### 5 [id number], [id number] #### [facility] [address] [place] [address], [place] Glucose [Mass/Vol] 131 mg/dL High 70-100 The [facility] Comment on above: Performed By: #### 8 [id number] #### [facility] [address] [place] [address], [place] Glucose [Mass/Vol] 75 mg/dL Normal 70-100 The [facility] Comment on above: Performed By: #### 5 0103 #### [facility] [address] [place] [address], [place] Glucose [Mass/Vol] 69 mg/dL Low 70-100 The [facility] Comment on above: Performed By: #### 8 [id number] ####[facility] [place] [address], [place] BASIC METABOLIC PANELon 03-2 0-2020 Calcium [Mass/Vol] 8.4 mg/dL Low 8.6-10.3 The [facility] Comment on above: Order Comment: No: D o not add to previous draw Performed By: #### 3 1944 #### [facility] [address] [place] [address], [place] Chloride [Moles/Vol] 105 mmol/L Normal 98-107 The [facility] Comment on above: Order Comment: No: D o not add to previous draw Performed By: #### 3 1943 #### [facility] [address] [place] [address], [place] CO2 [Moles/Vol] 24 mmol/L Normal 21-31 The [facility] Comment on above: Order Comment: No: D o not add to previous draw Performed By: #### 3 1943 #### [facility] [address] [place] [address], [place] Creatinine [Mass/Vol] 4.14 mg/dL High 0.70-1.30 The [facility] Comment on above: Order Comment: No: D o not add to previous draw Performed By: #### 3 1943 #### [facility] [address] [place] [address], [place] eGFR- 18 ml/min/1.73sq m Abnormal >60 The [facility] Comment on above: Order Comment: No: D o not add to previous draw Performed By: #### 3 1943 #### [facility] [address] [place] [address], [place] eGFR- non- 15 ml/min/1.73sq m Abnormal >60 The [facility] Comment on above: Order Comment: No: D o not add to previous draw Performed By: #### 3 1943 #### [facility] [address] [place] [address], [place] Glucose [Mass/Vol] 127 mg/dL High 70-100 The [facility] Comment on above: Order Comment: No: D o not add to previous draw Performed By: #### 3 1943 #### [facility] [address] [place] [address], [place] Potassium [Moles/Vol] 4.0 mmol/L Normal 3.5-5.1 The [facility] Comment on above: Order Comment: No: D o not add to previous draw Performed By: #### 3 1943 #### [facility] [address] [place] [address], [facility] Sodium [Moles/Vol] 136 mmol/L Normal 136-145 The [facility] Comment on above: Order Comment: No: D o not add to previous draw Performed By: #### 3 1943 #### [facility] [address] [place] [address], [facility] Urea nitrogen [Mass/Vol] 35 mg/dL High 7-25 The [facility] Comment on above: Order Comment: No: D o not add to previous draw Performed By: #### 3 1943 #### [facility] [address] [place] [address], [facility] CBC COMPLETE BLOOD COUNTon 0 - Erythrocyte distribution width (RBC) [Ratio] 14.6 % Normal 11.5-15.0 The [facility] Comment on above: Order Comment: No: D o not add to previous draw Performed By: #### 8 [id number] #### [facility] [address] [place] [address], [facility] Hematocrit (Bld) [Volume fraction] 31.8 % Low 39.0-50.0 The [facility] Comment on above: Order Comment: No: D o not add to previous draw Performed By: #### 8 [id number] #### [facility] [address] [place] [address], [facility] Hemoglobin (Bld) [Mass/Vol] 9.7 g/dL Low 13.0-17.0 The [facility] Comment on above: Order Comment: No: D o not add to previous draw Performed By: #### 8 [id number] #### [facility] [address] [place] [address], [place] MCH (RBC) [Entitic mass] 27.2 pg Normal 27.0-33.0 The [facility] Comment on above: Order Comment: No: D o not add to previous draw Performed By: #### 8 [id number] #### [facility] [address] [place] [id number], [facility] MCHC (RBC) [Mass/Vol] 30.5 g/dL Low 32.0-35.0 The [facility] Comment on above: Order Comment: No: D o not add to previous draw Performed By: #### 8 [id number] #### [facility] [address] [place] [id number], [facility] MCV (RBC) [Entitic vol] 89.3 fL Normal 82.0-98.0 The [facility] Comment on above: Order Comment: No: D o not add to previous draw Performed By: #### 8 [id number] #### [facility] [address] [place] [id number], [facility] Nucleated RBC/100 WBC (Bld) [Ratio] 0 % Normal 0-0 The [facility] Comment on above: Order Comment: No: D o not add to previous draw Performed By: #### 8 [id number] #### [facility] [address] [place] [id number], [facility] PLAT CNT 321 10*3/uL Normal 150-400 The [facility] Comment on above: Order Comment: No: D o not add to previous draw Performed By: #### 8 [id number] #### [facility] [address] [place] [address], [facility] RBC (Bld) [#/Vol] 3.56 10*6/uL Low 4.20-5.70 The [facility] Comment on above: Order Comment: No: D o not add to previous draw Performed By: #### 8 [id number] #### [facility] [address] [place] [id number], [place] WBC (Bld) [#/Vol] 8.88 10*3/uL Normal 4.00-10.60 The [facility] Comment on above: Order Comment: No: D o not add to previous draw Performed By: #### 8 [id number] #### [facility] [address] [place] [address], [place] POC GLUCOSE LABon 07-16-2020 Glucose [Mass/Vol] 94 mg/dL Normal 70-100 The [facility] Comment on above: Performed By: #### 5 0103 #### [facility] [address] [place] [address], [place] Glucose [Mass/Vol] 62 mg/dL Low 70-100 The [facility] Comment on above: Performed By: #### 5 7307, [id number] #### [facility] [address] [place] [address], [place] Glucose [Mass/Vol] 80 mg/dL Normal 70-100 The [facility] Comment on above: Performed By: #### 5 7307, 52131 #### [facility] [address] [place] [address], [place] Glucose [Mass/Vol] 99 mg/dL Normal 70-100 The [facility] Comment on above: Performed By: #### 8 [id number] ####[facility] [place] [address], [place] Glucose [Mass/Vol] 203 mg/dL High 70-100 The [facility] Comment on above: Performed By: #### 8 [id number] ####[facility] [place] [address], [place] Glucose [Mass/Vol] 151 mg/dL High 70-100 The [facility] Comment on above: Performed By: #### 5 7307, 43757 #### [facility] [address] [place] [address], [place] ANAon 07-15-2020 KILLIAN SCREEN <1:40 Normal <1:40,1:40 The [facility] Comment on above: Order Comment: No: D o not add to previous draw Performed By: #### 8 [id number] #### [facility] [address] [place] [address], [facility] ANCA IGG WITH REFLEX [id number] on 07-15-2020 ANCA <1:20 Normal <1:20 The [facility] Comment on above: Order Comment: No: D [...] collagen vascular disease or arthritis. Performed By: [facility] [address] [place] [address] [place] Technician: Emi Campbell MD BASIC METABOLIC PANELon 06-27 Calcium [Mass/Vol] 8.5 mg/dL Low 8.6-10.3 The [facility] Comment on above: Order Comment: No: D o not add to previous draw Performed By: #### 8 [id number] #### [facility] [address] [place] [address], [place] Chloride [Moles/Vol] 103 mmol/L Normal 98-107 The [facility] Comment on above: Order Comment: No: D o not add to previous draw Performed By: #### 8 [id number] #### [facility] [address] [place] [address], [place] CO2 [Moles/Vol] 23 mmol/L Normal 21-31 The [facility] Comment on above: Order Comment: No: D o not add to previous draw Performed By: #### 8 [id number] #### [facility] [address] [place] [address], [place] Creatinine [Mass/Vol] 4.38 mg/dL High 0.70-1.30 The [facility] Comment on above: Order Comment: No: D o not add to previous draw Performed By: #### 8 [id number] #### [facility] [address] [place] [address], [place] eGFR- 17 ml/min/1.73sq m Abnormal >60 The [facility] Comment on above: Order Comment: No: D o not add to previous draw Performed By: #### 8 [id number] #### [facility] [address] [place] [address], [place] eGFR- non- 14 ml/min/1.73sq m Abnormal >60 The [facility] Comment on above: Order Comment: No: D o not add to previous draw Performed By: #### 8 [id number] #### [facility] [address] [place] [address], [place] Glucose [Mass/Vol] 154 mg/dL High 70-100 The [facility] Comment on above: Order Comment: No: D o not add to previous draw Performed By: #### 8 [id number] #### [facility] [address] [place] [address], [place] Potassium [Moles/Vol] 4.5 mmol/L Normal 3.5-5.1 The [facility] Comment on above: Order Comment: No: D o not add to previous draw Performed By: #### 8 [id number] #### [facility] [address] [place] [address], [place] Sodium [Moles/Vol] 135 mmol/L Low 136-145 The [facility] Comment on above: Order Comment: No: D o not add to previous draw Performed By: #### 8 [id number] #### [facility] [address] [place] [address], [place] Urea nitrogen [Mass/Vol] 32 mg/dL High 7-25 The [facility] Comment on above: Order Comment: No: D o not add to previous draw Performed By: #### 8 [id number] #### [facility] [address] [place] [address], [place] C REACTIVE PROTEINon 021 CRP [Mass/Vol] 138.0 mg/L High 0.0-7.0 The [facility] Comment on above: Order Comment: FROM [id number] Performed By: #### 8 [id number] #### [facility] [address] CBC W/DIFFon 07-15-2020 ABS IMM GRANS 0.1 10*3/uL Normal 0.0-0.2 The [facility] Comment on above: Performed By: #### 5 0103 #### [facility] [address] [place] [address], [facility] ABS NEUTROPHILS 7.3 10*3/uL Normal 1.6-7.6 The [facility] Comment on above: Performed By: #### 5 0103 #### [facility] [address] [place] [address], [facility] Basophils (Bld) [#/Vol] 0.0 10*3/uL Normal 0.0-0.2 The [facility] Comment on above: Performed By: #### 5 0103 #### [facility] [address] [place] [address], [facility] Basophils/100 WBC (Bld) 0.3 % Normal 0.0-1.0 The [facility] Comment on above: Performed By: #### 5 0103 #### [facility] [address] [place] [address], [facility] Eosinophils (Bld) [#/Vol] 0.5 10*3/uL Normal 0.0-0.5 The [facility] Comment on above: Performed By: #### 5 0103 #### [facility] [address] [place] [address], [facility] Eosinophils/100 WBC (Bld) 5.1 % Normal 0.0-6.0 The [facility] Comment on above: Performed By: #### 5 0103 #### [facility] [address] [place] [address], [place] Erythrocyte distribution width (RBC) [Ratio] 14.9 % Normal 11.5-15.0 The [facility] Comment on above: Performed By: #### 5 0103 #### [facility] [address] Hematocrit (Bld) [Volume fraction] 33.0 % Low 39.0-50.0 The [facility] Comment on above: Performed By: #### 5 0103 #### [facility] [address] Hemoglobin (Bld) [Mass/Vol] 9.9 g/dL Low 13.0-17.0 The [facility] Comment on above: Performed By: #### 5 0103 #### [facility] [address] IMMATURE GRANS 1.4 % High 0.0-1.0 The [facility] Comment on above: Performed By: #### 5 0103 #### [facility] [address] Lymphocytes (Bld) [#/Vol] 1.1 10*3/uL Low 1.2-4.0 The [facility] Comment on above: Performed By: #### 5 3 #### [facility] [address] Lymphocytes/100 WBC (Bld) 11.0 % Low 20.0-45.0 The [facility] Comment on above: Performed By: #### 5 0103 #### [facility] [address] [place] [address], [facility] MCH (RBC) [Entitic mass] 27.0 pg Normal 27.0-33.0 The [facility] Comment on above: Performed By: #### 5 3 #### [facility] [address] [place] [address], [facility] MCHC (RBC) [Mass/Vol] 30.0 g/dL Low 32.0-35.0 The [facility] Comment on above: Performed By: #### 5 0103 #### [facility] [address] [place] [address], [facility] MCV (RBC) [Entitic vol] 90.2 fL Normal 82.0-98.0 The [facility] Comment on above: Performed By: #### 5 0103 #### [facility] [address] [place] [address], [facility] Monocytes (Bld) [#/Vol] 1.1 10*3/uL High 0.1-1.0 The [facility] Comment on above: Performed By: #### 5 0103 #### [facility] [address] [place] [address], [facility] MONOS 10.9 % Normal 5.0-12.0 The [facility] Comment on above: Performed By: #### 5 0103 #### [facility] [address] [place] [address], [facility] Neutrophils/100 WBC (Bld) 71.3 % Normal 40.0-72.0 The [facility] Comment on above: Performed By: #### 5 3 #### [facility] [address] [place] [address], [facility] Nucleated RBC/100 WBC (Bld) [Ratio] 0 % Normal 0-0 The [facility] Comment on above: Performed By: #### 5 0103 #### [facility] [address] [place] [address], [facility] PLAT CNT 317 10*3/uL Normal 150-400 The [facility] Comment on above: Performed By: #### 5 3 #### [facility] [address] [place] [address], [facility] RBC (Bld) [#/Vol] 3.66 10*6/uL Low 4.20-5.70 The [facility] Comment on above: Performed By: #### 5 0103 #### [facility] [address] [place] [address], [facility] WBC (Bld) [#/Vol] 10.23 10*3/uL Normal 4.00-10.60 The [facility] Comment on above: Performed By: #### 5 0103 #### [facility] [address] [place] [address], [facility] COMPLEMENT 3on 07-15-2020 COMPLEMENT 3 108 mg/dL Normal 79-152 The [facility] Comment on above: Order Comment: No: D o not add to previous draw Performed By: #### 8 [id number] #### [facility] [address] [place] [address], [facility] COMPLEMENT 4on 07-15-2020 COMPLEMENT 4 31 mg/dL Normal 16-38 The [facility] Comment on above: Order Comment: No: D o not add to previous draw Performed By: #### 8 [id number] #### [facility] [address] GLOMR BASMT MEMBRon 07-16-19 21 GLOMR BASMT MBRN Negative Abnormal NEGATIVE The [facility] Comment on above: Order Comment: No: D o not add to previous draw Result Comment: Note : The performance characteristics of this test were validated by the [facility] Immunology laboratory. It has not been cleared or approved by the U.S. Food and Drug Administration. The results are not intended to be used as the sole means for clinical diagnosis or patient management decisions. [facility]'s Immunology lab is authorized under CLIA to perform high-complexity testing. Performed By: #### 8 [id number] #### [facility] [address] [place] [address], [facility] POC GLUCOSE LABon 07-15-2020 Glucose [Mass/Vol] 107 mg/dL High 70-100 The [facility] Comment on above: Performed By: #### 5 7307, 61693 #### [facility] [address] [place] [address], [facility] Glucose [Mass/Vol] 84 mg/dL Normal 70-100 The [facility] Comment on above: Performed By: #### 5 0103 #### [facility] [address] [place] [address], [facility] Glucose [Mass/Vol] 164 mg/dL High 70-100 The [facility] Comment on above: Performed By: #### 8 [id number] ####[facility] [place] [address], [place] Glucose [Mass/Vol] 141 mg/dL High 70-100 The [facility] Comment on above: Performed By: #### 5 7307, 80688 #### [facility] [address] [place] [address], [facility] PORTABLE CHEST 1 VIEWon 06-27 PORTABLE CHEST 1 VIEW [facility] Department of Radiology [address] [place] [id number] Patient Name: RASHARD LYMAN : 1960 Sex: M Age: Race: White Pt. Location: [id number] Patient Status: I Ordered Date: 07/15/2020 7:00:00 [...] exam. Electronically signed: Nir Swartz. Transcribed by: [email or web address], User Resident: Electronically Signed by: NIR SWARTZ @ 07/15/2020 07:34 AM Normal The [facility] Comment on above: Order Comment: evalu ate for Effusion *AFB CULTUREon 07-14-2020 *AFB CULTURE Clinical Report: (D) Specimen/Source: FLUID/PLEURAL FLUID Collected: 07/14/2020 13:03 Status: Final Last Updated: 08/26/2020 08:52 (1) Left Peural Effusion AFB (Final) No Acid Fast Bacilli Seen CULT RES (Final) No growth after 42 days of incubation Normal [facility] Comment on above: Order Comment: Left Peural Effusion Performed By: #### 8 [id number] #### [facility] [address] *ANAEROBIC CULTUREon 021 *ANAEROBIC CULTURE Clinical Report: (D) Specimen/Source: FLUID/PLEURAL FLUID Collected: 07/14/2020 13:03 Status: Final Last Updated: 07/19/2020 08:08 (1) Left Peural Effusion CULT RES (Final) No Anaerobes Isolated 5 Days Normal The [facility] Comment on above: Order Comment: Left Peural Effusion Performed By: #### 8 [id number] #### [facility] [address] [place] [address], [facility] *BODY FLUID CULTUREon 2020 *BODY FLUID CULTURE Clinical Report: (D) Specimen/Source: FLUID/PLEURAL FLUID Collected: 07/14/2020 13:03 Status: Final Last Updated: 07/19/2020 07:53 (1) Left Peural Effusion GRAM (Final) Polys PRESENT No Bacteria Seen CYTOSPUN (Final) This Gram Stain was done on a cytocentrifuged specimen CULT RES (Final) No Growth Day 5 Normal The [facility] Comment on above: Order Comment: Left Peural Effusion Performed By: #### 3 0318 #### [facility] [address] *FUNGAL CULTUREon 07-14-2020 *FUNGAL CULTURE Clinical Report: (D) Specimen/Source: FLUID/PLEURAL FLUID Collected: 07/14/2020 13:03 Status: Final Last Updated: 08/15/2020 08:41 (1) Left Peural Effusion FS (Final) No Yeast or Fungal Elements Seen CULT RES (Final) Culture negative for fungus Normal The [facility] Comment on above: Order Comment: Left Peural Effusion Performed By: #### 8 [id number] #### [facility] [address] *VIRAL NON RESPIRATORY CULTU REon 07-14-2020 Bacteria identified Cx Nom (Unsp spec) Normal The [facility] Comment on above: Order Comment: Left Peural [...] Linked Virus Inducible S. [place] Normal The [facility] Comment on above: Order Comment: Left Peural Effusion Result Comment: Test Performed by [address] [id number] - Released 07/20/2020 14:10 Result changed by IF on 07/17/2020 14:17. The previous value was Test Performed by [address] [address] [phone].. Result changed by IF on 07/18/2020 12:17. The previous value was Test Performed by [address] [address] [phone].. Result changed by IF on 07/20/2020 14:10. The previous value was Test Performed by [address] [address] [phone].. REPORT STATUS FINAL 07/20/2020 Normal The [facility] Comment on above: Order Comment: Left Peural Effusion Result Comment: Resu lt changed by IF on 07/20/2020 14:10. The previous value was Preliminary. APTTon 07-14-2020 aPTT Coag (Bld) [Time] 41.7 s High 25.0-35.0 The [facility] Comment on above: Order Comment: No: D [...] PURPOSE. Performed By: #### 8 [id number] #### [facility] [address] [place] [address], [facility] aPTT Coag (Bld) [Time] 44.9 s High 25.0-35.0 The [facility] Comment on above: Order Comment: No: D [...] THIS PURPOSE. Performed By: #### 5 [id number], [id number] #### [facility] [address] [place] [address], [facility] BASIC METABOLIC PANELon 06-27 Calcium [Mass/Vol] 8.6 mg/dL Normal 8.6-10.3 The [facility] Comment on above: Order Comment: No: D o not add to previous draw Performed By: #### 8 [id number] #### [facility] [address] [place] [id number], [facility] Chloride [Moles/Vol] 102 mmol/L Normal 98-107 The [facility] Comment on above: Order Comment: No: D o not add to previous draw Performed By: #### 8 [id number] #### [facility] [address] [place] [id number], [facility] CO2 [Moles/Vol] 24 mmol/L Normal 21-31 The [facility] Comment on above: Order Comment: No: D o not add to previous draw Performed By: #### 8 [id number] #### [facility] [address] [place] [id number], [facility] Creatinine [Mass/Vol] 3.44 mg/dL High 0.70-1.30 The [facility] Comment on above: Order Comment: No: D o not add to previous draw Performed By: #### 8 [id number] #### [facility] [address] [place] [address], [facility] eGFR- 22 ml/min/1.73sq m Abnormal >60 The [facility] Comment on above: Order Comment: No: D o not add to previous draw Performed By: #### 8 [id number] #### [facility] [address] [place] [address], [facility] eGFR- non- 18 ml/min/1.73sq m Abnormal >60 The [facility] Comment on above: Order Comment: No: D o not add to previous draw Performed By: #### 8 [id number] #### [facility] [address] [place] [address], [facility] Glucose [Mass/Vol] 355 mg/dL High 70-100 The [facility] Comment on above: Order Comment: No: D o not add to previous draw Performed By: #### 8 [id number] #### [facility] [address] [place] [address], [facility] Potassium [Moles/Vol] 4.6 mmol/L Normal 3.5-5.1 The [facility] Comment on above: Order Comment: No: D o not add to previous draw Performed By: #### 8 [id number] #### [facility] [address] [place] [address], [facility] Sodium [Moles/Vol] 133 mmol/L Low 136-145 The [facility] Comment on above: Order Comment: No: D o not add to previous draw Performed By: #### 8 [id number] #### [facility] [address] [place] [address], [facility] Urea nitrogen [Mass/Vol] 27 mg/dL High 7-25 The [facility] Comment on above: Order Comment: No: D o not add to previous draw Performed By: #### 8 [id number] #### [facility] [address] [place] [address], [facility] BNP (B-TYPE NATRIURETIC PEPT CIERRA)on 07-14-2020 Natriuretic peptide B (Bld) [Mass/Vol] 19 pg/mL Normal 0-100 The [facility] Comment on above: Order Comment: Left Peural Effusion Result Comment: Give n the appropriate clinical setting a BNP result of >100 pg/mL indicates congestive heart failure. Performed By: #### 3 [id number] #### [facility] [address] CBC COMPLETE BLOOD COUNTon 0 - Erythrocyte distribution width (RBC) [Ratio] 14.6 % Normal 11.5-15.0 The [facility] Comment on above: Order Comment: No: D o not add to previous draw Performed By: #### 8 [id number] #### [facility] [address] [place] [address], [facility] Hematocrit (Bld) [Volume fraction] 35.3 % Low 39.0-50.0 The [facility] Comment on above: Order Comment: No: D o not add to previous draw Performed By: #### 8 [id number] #### [facility] [address] [facility] [place] [address], [facility] Hemoglobin (Bld) [Mass/Vol] 11.1 g/dL Low 13.0-17.0 The [facility] Comment on above: Order Comment: No: D o not add to previous draw Performed By: #### 8 [id number] #### [facility] [address] [place] [address], [facility] MCH (RBC) [Entitic mass] 27.5 pg Normal 27.0-33.0 The [facility] Comment on above: Order Comment: No: D o not add to previous draw Performed By: #### 8 [id number] #### [facility] [address] [place] [address], [facility] MCHC (RBC) [Mass/Vol] 31.4 g/dL Low 32.0-35.0 The [facility] Comment on above: Order Comment: No: D o not add to previous draw Performed By: #### 8 [id number] #### [facility] [address] [place] [address], [facility] MCV (RBC) [Entitic vol] 87.6 fL Normal 82.0-98.0 The [facility] Comment on above: Order Comment: No: D o not add to previous draw Performed By: #### 8 [id number] #### [facility] [address] [facility] [address], [facility] Nucleated RBC/100 WBC (Bld) [Ratio] 0 % Normal 0-0 The [facility] Comment on above: Order Comment: No: D o not add to previous draw Performed By: #### 8 [id number] #### [facility] [address] [facility] [place] [address], [facility] PLAT CNT 325 10*3/uL Normal 150-400 The [facility] Comment on above: Order Comment: No: D o not add to previous draw Performed By: #### 8 [id number] #### [facility] [address] [place] [address], [facility] RBC (Bld) [#/Vol] 4.03 10*6/uL Low 4.20-5.70 The [facility] Comment on above: Order Comment: No: D o not add to previous draw Performed By: #### 8 [id number] #### [facility] [address] [place] [address], [facility] WBC (Bld) [#/Vol] 12.59 10*3/uL High 4.00-10.60 The [facility] Comment on above: Order Comment: No: D o not add to previous draw Performed By: #### 8 [id number] #### [facility] [address] [place] [address], [facility] CBC W/DIFFon 07-14-2020 ABS IMM GRANS 0.2 10*3/uL Normal 0.0-0.2 The [facility] Comment on above: Order Comment: No: D o not add to previous draw Performed By: #### 8 [id number] #### [facility] [address] [place] [address], [facility] ABS NEUTROPHILS 7.9 10*3/uL High 1.6-7.6 The [facility] Comment on above: Order Comment: No: D o not add to previous draw Performed By: #### 8 [id number] #### [facility] [address] [place] [address], [facility] Basophils (Bld) [#/Vol] 0.1 10*3/uL Normal 0.0-0.2 The [facility] Comment on above: Order Comment: No: D o not add to previous draw Performed By: #### 8 [id number] #### [facility] [address] [place] [address], [facility] Basophils/100 WBC (Bld) 0.5 % Normal 0.0-1.0 The [facility] Comment on above: Order Comment: No: D o not add to previous draw Performed By: #### 8 [id number] #### [facility] [address] [place] [address], [facility] Eosinophils (Bld) [#/Vol] 0.5 10*3/uL Normal 0.0-0.5 The [facility] Comment on above: Order Comment: No: D o not add to previous draw Performed By: #### 8 [id number] #### [facility] [address] [place] [address], [facility] Eosinophils/100 WBC (Bld) 4.3 % Normal 0.0-6.0 The [facility] Comment on above: Order Comment: No: D o not add to previous draw Performed By: #### 8 [id number] #### [facility] [address] [place] [address], [facility] Erythrocyte distribution width (RBC) [Ratio] 14.6 % Normal 11.5-15.0 The [facility] Comment on above: Order Comment: No: D o not add to previous draw Performed By: #### 8 [id number] #### [facility] [address] [place] [id number], [facility] Hematocrit (Bld) [Volume fraction] 34.2 % Low 39.0-50.0 The [facility] Comment on above: Order Comment: No: D o not add to previous draw Performed By: #### 8 [id number] #### [facility] [address] [place] [address], [facility] Hemoglobin (Bld) [Mass/Vol] 10.3 g/dL Low 13.0-17.0 The [facility] Comment on above: Order Comment: No: D o not add to previous draw Performed By: #### 8 [id number] #### [facility] [address] [place] [id number], [facility] IMMATURE GRANS 1.4 % High 0.0-1.0 The [facility] Comment on above: Order Comment: No: D o not add to previous draw Performed By: #### 8 [id number] #### [facility] [address] [place] [address], [facility] Lymphocytes (Bld) [#/Vol] 1.3 10*3/uL Normal 1.2-4.0 The [facility] Comment on above: Order Comment: No: D o not add to previous draw Performed By: #### 8 [id number] #### [facility] [address] [facility] [place] [address], [facility] Lymphocytes/100 WBC (Bld) 11.3 % Low 20.0-45.0 The [facility] Comment on above: Order Comment: No: D o not add to previous draw Performed By: #### 8 [id number] #### [facility] [address] [facility] [place] [address], [facility] MCH (RBC) [Entitic mass] 27.0 pg Normal 27.0-33.0 The [facility] Comment on above: Order Comment: No: D o not add to previous draw Performed By: #### 8 [id number] #### [facility] [address] [facility] [place] [id number], [facility] MCHC (RBC) [Mass/Vol] 30.1 g/dL Low 32.0-35.0 The [facility] Comment on above: Order Comment: No: D o not add to previous draw Performed By: #### 8 [id number] #### [facility] [address] [facility] [place] [address], [facility] MCV (RBC) [Entitic vol] 89.5 fL Normal 82.0-98.0 The [facility] Comment on above: Order Comment: No: D o not add to previous draw Performed By: #### 8 [id number] #### [facility] [address] [place] [address], [facility] Monocytes (Bld) [#/Vol] 1.4 10*3/uL High 0.1-1.0 The [facility] Comment on above: Order Comment: No: D o not add to previous draw Performed By: #### 8 [id number] #### [facility] [address] [place] [address], [facility] MONOS 12.6 % High 5.0-12.0 The [facility] Comment on above: Order Comment: No: D o not add to previous draw Performed By: #### 8 [id number] #### [facility] [address] [place] [address], [facility] Neutrophils/100 WBC (Bld) 69.9 % Normal 40.0-72.0 The [facility] Comment on above: Order Comment: No: D o not add to previous draw Performed By: #### 8 [id number] #### [facility] [address] [place] [address], [facility] Nucleated RBC/100 WBC (Bld) [Ratio] 0 % Normal 0-0 The [facility] Comment on above: Order Comment: No: D o not add to previous draw Performed By: #### 8 [id number] #### [facility] [address] [place] [id number], [place] PLAT CNT 292 10*3/uL Normal 150-400 The [facility] Comment on above: Order Comment: No: D o not add to previous draw Performed By: #### 8 [id number] #### [facility] [address] [place] [id number], [facility] RBC (Bld) [#/Vol] 3.82 10*6/uL Low 4.20-5.70 The [facility] Comment on above: Order Comment: No: D o not add to previous draw Performed By: #### 8 [id number] #### [facility] [address] [place] [id number], [facility] WBC (Bld) [#/Vol] 11.28 10*3/uL High 4.00-10.60 The [facility] Comment on above: Order Comment: No: D o not add to previous draw Performed By: #### 8 [id number] #### [facility] [address] [place] [address], [facility] COMP METABOLIC PANELon 07-14 Albumin [Mass/Vol] 3.1 g/dL Low 3.5-5.7 The [facility] Comment on above: Order Comment: No: D o not add to previous draw Performed By: #### 8 [id number] #### [facility] [address] [place] [address], [facility] ALKALINE PHOSPH 77 IU/L Normal 34-104 The [facility] Comment on above: Order Comment: No: D o not add to previous draw Performed By: #### 8 [id number] #### [facility] [address] [place] [address], [place] ALT [Catalytic activity/Vol] 8 U/L Normal 7-52 The [facility] Comment on above: Order Comment: No: D o not add to previous draw Performed By: #### 8 [id number] #### [facility] [address] [place] [address], [place] AST [Catalytic activity/Vol] 11 U/L Low 13-39 The [facility] Comment on above: Order Comment: No: D o not add to previous draw Performed By: #### 8 [id number] #### [facility] [address] [place] [address], [place] Bilirubin [Mass/Vol] 0.3 mg/dL Normal 0.3-1.0 The [facility] Comment on above: Order Comment: No: D o not add to previous draw Performed By: #### 8 [id number] #### [facility] [address] [place] [address], [place] Calcium [Mass/Vol] 8.8 mg/dL Normal 8.6-10.3 The [facility] Comment on above: Order Comment: No: D o not add to previous draw Performed By: #### 8 [id number] #### [facility] [address] [place] [address], [place] Chloride [Moles/Vol] 101 mmol/L Normal 98-107 The [facility] Comment on above: Order Comment: No: D o not add to previous draw Performed By: #### 8 [id number] #### [facility] [address] [place] [address], [place] CO2 [Moles/Vol] 22 mmol/L Normal 21-31 The [facility] Comment on above: Order Comment: No: D o not add to previous draw Performed By: #### 8 [id number] #### [facility] [address] [place] [address], [place] Creatinine [Mass/Vol] 3.38 mg/dL High 0.70-1.30 The [facility] Comment on above: Order Comment: No: D o not add to previous draw Performed By: #### 8 [id number] #### [facility] [address] [place] [address], [place] eGFR- 23 ml/min/1.73sq m Abnormal >60 The [facility] Comment on above: Order Comment: No: D o not add to previous draw Performed By: #### 8 [id number] #### [facility] [address] [place] [address], [place] eGFR- non- 19 ml/min/1.73sq m Abnormal >60 The [facility] Comment on above: Order Comment: No: D o not add to previous draw Performed By: #### 8 [id number] #### [facility] [address] [place] [address], [place] Glucose [Mass/Vol] 324 mg/dL High 70-100 The [facility] Comment on above: Order Comment: No: D o not add to previous draw Performed By: #### 8 [id number] #### [facility] [address] [place] [address], [place] Potassium [Moles/Vol] 4.5 mmol/L Normal 3.5-5.1 The [facility] Comment on above: Order Comment: No: D o not add to previous draw Performed By: #### 8 [id number] #### [facility] [address] [place] [address], [place] Protein [Mass/Vol] 6.7 g/dL Normal 6.0-8.3 The [facility] Comment on above: Order Comment: No: D o not add to previous draw Performed By: #### 8 [id number] #### [facility] [address] [place] [address], [place] Sodium [Moles/Vol] 131 mmol/L Low 136-145 The [facility] Comment on above: Order Comment: No: D o not add to previous draw Performed By: #### 8 [id number] #### [facility] [address] [place] [address], [place] Urea nitrogen [Mass/Vol] 27 mg/dL High 7-25 The [facility] Comment on above: Order Comment: No: D o not add to previous draw Performed By: #### 8 [id number] #### [facility] [address] [place] [address], [place] CREATININE URINE RANDOMon Creatinine (U) [Mass/Vol] 101.0 mg/dL Normal The [facility] Comment on above: Order Comment: No: D o not add to previous draw Result Comment: Ther e are no established reference values for random urine specimens Performed By: #### 8 [id number] #### [facility] [address] [place] [address], [facility] FLUID CELL COUNTon 1 Basophils/100 WBC (Bld) 1 % Normal The [facility] Comment on above: Performed By: #### 8 [id number] #### [facility] [address] [place] [address], [place] Eosinophils/100 WBC (Bld) 11 % Normal The [facility] Comment on above: Performed By: #### 8 [id number] #### [facility] [address] [place] [address], [facility] Lymphocytes/100 WBC (Bld) 49 % Normal The [facility] Comment on above: Performed By: #### 8 [id number] #### [facility] [address] [place] [address], [facility] MESOTHELIAL 12 % Normal The [facility] Comment on above: Performed By: #### 8 [id number] #### [facility] [address] [place] [address], [facility] OTHER F1 Diff done by cytospin Normal The [facility] Comment on above: Performed By: #### 8 [id number] #### [facility] [address] [place] [address], [facility] OTHER F3 Checked by Evelyn Rodriguez M.D. Normal The [facility] Comment on above: Result Comment: Resu lt changed by VHERR on 07/15/2020 13:33. The previous value was Preliminary report; verified report to follow. Performed By: #### 8 [id number] #### [facility] [address] [place] [address], [place] [address] RBC/uL Normal The [facility] Comment on above: Performed By: #### 8 [id number] #### [facility] [address] [place] [address], [place] SEGS 27 % Normal The [facility] Comment on above: Performed By: #### 8 [id number] #### [facility] [address] [place] [address], [place] SOURCE Thoracentesis Normal The [facility] Comment on above: Performed By: #### 8 [id number] #### [facility] [address] [place] [address], [place] TOTAL VOLUME 1L Normal The [facility] Comment on above: Performed By: #### 8 [id number] #### [facility] [address] [place] [address], [place] WBC 1762 WBC/uL Normal The [facility] Comment on above: Result Comment: Some reference interval(s) and other method performance specifications have not been established for analytes on this body fluid. The test result must be integrated into the clinical context for interpretation. Performed By: #### 8 [id number] #### [facility] [address] [place] [address], [facility] GLUCOSE FLUID MISCon 021 Glucose [Mass/Vol] 326 mg/dL Normal The [facility] Comment on above: Result Comment: The reference range and other method performance specifications have not been established for this test in fluids. the test result should be integrated into the clinical context for interpretation. Performed By: #### 3 1944 #### [facility] [address] [place] [address], [facility] HEMOGLOBIN A1Con 07-14-2020 Glucose [Moles/Vol] 295 mmol/L Normal The [facility] Comment on above: Order Comment: Left Peural Effusion Performed By: #### 3 [id number] #### [facility] [address] [place] [address], [place] HbA1c (Bld) [Mass fraction] 11.9 % High 4.0-6.0 The [facility] Comment on above: Order Comment: Left Peural Effusion Performed By: #### 3 [id number] #### [facility] [address] [place] [address], [place] HEPATITIS B SURFACE ANTIGEN QUALon 07-14-2020 HEP B SURF AG QUAL Non-Reactive Normal NONREACTIVE The [facility] Comment on above: Order Comment: No: D o not add to previous draw Performed By: #### 3 1943 #### [facility] [address] [place] [address], [facility] HEPATITIS C ANTIBODYon 07-14 ANTI-HCV Non-Reactive Normal NONREACTIVE The [facility] Comment on above: Order Comment: No: D o not add to previous draw Performed By: #### 3 1943 #### [facility] [address] [place] [address], [facility] LDH BLOODon 07-14-2020 LDH 176 Units/L Normal 140-271 The [facility] Comment on above: Order Comment: Left Peural Effusion Performed By: #### 3 [id number] #### [facility] [address] [place] [address], [facility] LDH 133 Units/L Low 140-271 The [facility] Comment on above: Order Comment: No: D o not add to previous draw Performed By: #### 8 [id number] #### [facility] [address] [place] [address], [facility] LDH FLUIDon 07-14-2020 LDH 212 Units/L Normal The [facility] Comment on above: Result Comment: The reference range and other method performance specifications have not been established for this test in fluids. the test result should be integrated into the clinical context for interpretation. Performed By: #### 3 1943 #### [facility] [address] [place] [address], [place] LIPID PROFILEon 07-14-2020 Cholesterol [Mass/Vol] 95 mg/dL Low 120-200 The [facility] Comment on above: Order Comment: No: D o not add to previous draw Result Comment: CHOL ESTEROL REFERENCE RANGE: 20 YEARS AND OLDER CARDIOVASCULAR RISK Less than 200 mg/dl Low Risk 200 to 239 mg/dl Borderline Risk 240 mg/dl and greater High Risk Performed By: #### 8 [id number] #### [facility] [address] [place] [address], [place] Cholesterol in HDL [Mass/Vol] 36 mg/dL Normal 23-92 The [facility] Comment on above: Order Comment: No: D o not add to previous draw Result Comment: Slig ht variation in normal range could be due to gender and/or age. HDL CHOLESTEROL REFERENCE RANGE: 20 years and older Cardiovascular Risk > or =60 mg/dL Desirable 40 TO 59 mg/dL Low Risk <40 mg/dL High Risk Performed By: #### 8 [id number] #### [facility] [address] [place] [address], [place] Cholesterol in LDL [Mass/Vol] 37 mg/dL Normal 0-130 The [facility] Comment on above: Order Comment: No: D o not add to previous draw Result Comment: LDL IS A CALCULATION LDL IS ONLY VALID IF THE TRIG IS LESS THAN 400. Performed By: #### 8 [id number] #### [facility] [address] [place] [address], [place] Cholesterol.total/Ch olesterol in HDL [Mass ratio] 2.6 {ratio} Normal 0.0-4.5 The [facility] Comment on above: Order Comment: No: D o not add to previous draw Performed By: #### 8 [id number] #### [facility] [address] [place] [address], [place] NON-HDL CHOLESTEROL 59 mg/dL Normal The [facility] Comment on above: Order Comment: No: D o not add to previous draw Performed By: #### 8 [id number] #### [facility] [address] [place] [address], [place] Triglyceride [Mass/Vol] 109 mg/dL Normal 40-149 The [facility] Comment on above: Order Comment: No: D o not add to previous draw Result Comment: TRIG LYCERIDE REFERENCE RANGE: 20 YEARS AND OLDER CARDIOVASCULAR RISK LESS THAN 150 mg/dl LOW RISK 150 TO 199 mg/dl BORDERLINE RISK 200 mg/dl AND GREATER HIGH RISK Performed By: #### 8 [id number] #### [facility] [address] [place] [address], [place] VLDL CHOL 22 mg/dL Normal 0-40 The [facility] Comment on above: Order Comment: No: D o not add to previous draw Performed By: #### 8 [id number] #### [facility] [address] [place] [address], [place] MAGNESIUM BLOODon 07-14-2020 Magnesium [Mass/Vol] 2.1 mg/dL Normal 1.9-2.7 The [facility] Comment on above: Order Comment: No: D o not add to previous draw Performed By: #### 8 [id number] #### [facility] [address] [place] [address], [place] Magnesium [Mass/Vol] 2.0 mg/dL Normal 1.9-2.7 The [facility] Comment on above: Performed By: #### 8 [id number] #### [facility] [address] [place] [address], [place] PHOSPHORUS BLOODon Phosphate [Mass/Vol] 4.1 mg/dL Normal 2.5-5.0 The [facility] Comment on above: Order Comment: No: D o not add to previous draw Performed By: #### 8 [id number] #### [facility] [address] [place] [address], [place] Phosphate [Mass/Vol] 4.0 mg/dL Normal 2.5-5.0 The [facility] Comment on above: Performed By: #### 8 [id number] #### [facility] [address] [place] [address], [place] POC GLUCOSE LABon 07-14-2020 Glucose [Mass/Vol] 180 mg/dL High 70-100 The [facility] Comment on above: Performed By: #### 8 [id number] ####[facility] [place] [address], [place] Glucose [Mass/Vol] 198 mg/dL High 70-100 The [facility] Comment on above: Performed By: #### 5 [id number], [id number] #### [facility] [address] [place] [address], [facility] Glucose [Mass/Vol] 265 mg/dL High 70-100 The [facility] Comment on above: Performed By: #### 8 [id number] #### [facility] [address] [place] [address], [place] Glucose [Mass/Vol] 305 mg/dL High 70-100 [facility] Comment on above: Performed By: #### 5 [id number], [id number] #### [facility] [address] [facility] [place] [address], [place] Glucose [Mass/Vol] 301 mg/dL High 70-100 [facility] Comment on above: Performed By: #### 5 0103 #### [facility] [address] [place] [address], [facility] PORTABLE CHEST 1 VIEWon 06-27 PORTABLE CHEST 1 VIEW [facility] Department of Radiology [address] [place] [id number] Patient Name: RASHARD LYMAN : 1960 Sex: M Age: Race: White Pt. Location: [address] [place] [address] Patient Status: I Ordered Date: 07/14/2020 1:40:00 [...] above Electronically signed: Patricia Damon. Transcribed by: [email or web address], User Resident: Electronically Signed by: PATRICIA DAMON @ 07/14/2020 03:24 PM Normal The [facility] Comment on above: Order Comment: Evalu ate for Pneumothorax PORTABLE CHEST 1 VIEW [facility] Department of Radiology [address] [place] [id number] Patient Name: RASHARD LYMAN : 1960 Sex: M Age: Race: White Pt. Location: [id number] Patient Status: I Ordered Date: 07/13/2020 11:35:00 [...] reports Electronically signed: Valdemar Foster. Transcribed by: [email or web address], User Resident: SY [email or web address] Electronically Signed by: VALDEMAR FOSTER @ 07/14/2020 06:31 AM I personally read this/these film(s) with this resident Normal The [facility] Comment on above: Order Comment: evalu ate for Effusion PROTEIN ELECT Truong 07-14-2020 Protein [Mass/Vol] 6.0 g/dL Normal 6.0-8.3 The [facility] Comment on above: Performed By: #### 3 [id number] #### [facility] [address] [place] [address], [place] PROTEIN ELECT Normal The [facility] Comment on above: Result Comment: Decr eased albumin and elevated alpha 1 and 2 suggests acute inflammation. Performed By: #### 3 [id number] #### [facility] [address] [place] [address], [place] PROTEIN ELECT URon PROTEIN ELECT Urine protein electrophoresis suggests a nonselective nephropathy. Normal The [facility] Comment on above: Performed By: #### 3 1944 #### [facility] [address] [place] [address], [place] PROTEIN TOTAL BLOODon 2020 Protein [Mass/Vol] 6.7 g/dL Normal 6.0-8.3 The [facility] Comment on above: Order Comment: Left Peural Effusion Performed By: #### 3 [id number] #### [facility] [address] [facility] PROTHROMBIN TIMEon 1 INR Coag (PPP) [Relative time] 1.12 {INR} Normal 0.91-1.16 The [facility] Comment on above: Order Comment: No: D o not add to previous draw Result Comment: ACCC P RECOMMENDED INR FOR WARFARIN THERAPY ------- ------- CONDITION INR PROPHYLAXIS OF VENOUS THROMBOSIS 2-3 (HIGH-RISK SURGERY) TREATMENT OF VENOUS THROMBOSIS 2-3 TREATMENT OF PULMONARY EMBOLISM 2-3 PREVENTION OF SYSTEMIC EMBOLISM: 2-3 ACUTE MYOCARDIAL INFARCTION TISSUE HEART VALVES VALVULAR HEART DISEASE ATRIAL FIBRILLATION RECURRENT SYSTEMIC EMBOLISM MECHANICAL HEART VALVE 2.5-3.5 FROM: ORAL ANTICOAGULANTS. MECHANISM OF ACTION, CLINICAL EFFECTIVENESS, AND OPTIMAL THERAPEUTIC RANGE. CHEST 1995;108:231S-246S. Performed By: #### 5 [id number], [id number] #### [facility] [address] [facility] [place] [address], [facility] PT Coag (PPP) [Time] 14.4 s Normal 12.3-14.8 The [facility] Comment on above: Order Comment: No: D o not add to previous draw Result Comment: ALL RESULTS MUST BE INTERPRETED WITH RESPECT TO BLOOD DRAWING ARTIFACT OR DILUTION ERROR OF ANTICOAGULANT AT THE TIME OF SAMPLING. Performed By: #### 5 [id number], [id number] #### [facility] [address] [facility] [place] [address], [facility] SEDIMENTATION RATEon 021 SED RATE 32 mm/hr High 0-10 The [facility] Comment on above: Performed By: #### 8 [id number] #### [facility] [address] [place] [address], [facility] SODIUM URINE RANDOMon 2020 Sodium (U) [Moles/Vol] 59 mmol/L Normal The [facility] Comment on above: Order Comment: No: D o not add to previous draw Result Comment: Ther e are no established reference values for random urine specimens Performed By: #### 8 [id number] #### [facility] [address] [place] [address], [facility] T PROT FLUIDon 07-14-2020 Protein [Mass/Vol] 3.6 g/dL Normal The [facility] Comment on above: Result Comment: The reference range and other method performance specifications have not been established for this test in fluids. the test result should be integrated into the clinical context for interpretation. Performed By: #### 3 1944 #### [facility] [address] [place] [address], [facility] T PROT UR Loretta 07-14-2020 U TOTAL PROTEIN 859.0 mg/dL Normal The [facility] Comment on above: Order Comment: No: D o not add to previous draw Result Comment: Ther e are no established reference values for random urine specimens Performed By: #### 8 [id number] #### [facility] [address] [place] [address], [facility] Performed By: #### 3 1944 #### [facility] [address] [place] [address], [facility] TROPONIN-Ion 07-14-2020 Troponin I.cardiac [Mass/Vol] 0.09 ng/mL High 0.00-0.04 The [facility] Comment on above: Order Comment: No: D o not add to previous draw Result Comment: REFE RENCE RANGES: 0.00 - 0.04 ng/ml NORMAL 0.05 - 0.50 ng/ml INDETERMINATE > 0.50 ng/ml CONSISTENT WITH AN M.I. Performed By: #### 8 [id number] #### [facility] [address] [place] [address], [facility] Troponin I.cardiac [Mass/Vol] 0.07 ng/mL High 0.00-0.04 The [facility] Comment on above: Order Comment: No: D o not add to previous draw Result Comment: REFE RENCE RANGES: 0.00 - 0.04 ng/ml NORMAL 0.05 - 0.50 ng/ml INDETERMINATE > 0.50 ng/ml CONSISTENT WITH AN M.I. Performed By: #### 8 [id number] #### [facility] [address] [facility] [place] [address], [facility] TSH3on 07-14-2020 TSH 3RD GENERATION 3.28 uIU/mL Normal 0.34-5.60 The [facility] Comment on above: Order Comment: No: D o not add to previous draw Performed By: #### 8 [id number] #### [facility] [address] [place] [address], [facility] URIC ACID BLOODon 07-14-2020 Urate [Mass/Vol] 7.1 mg/dL Normal 4.4-7.6 The [facility] Comment on above: Performed By: #### 8 [id number] #### [facility] [address] [place] [address], [facility] URINALYSIS REFLEXon 07-15-19 21 Appearance (U) SL CLOUDY Abnormal CLEAR The [facility] Comment on above: Order Comment: Left Peural Effusion Performed By: #### 3 [id number] #### [facility] [address] [place] [address], [facility] Bilirubin Ql (U) Negative Normal NEGATIVE The [facility] Comment on above: Order Comment: Left Peural Effusion Performed By: #### 3 [id number] #### [facility] [address] [place] [address], [place] Color (U) YELLOW Normal YELLOW The [facility] Comment on above: Order Comment: Left Peural Effusion Performed By: #### 3 [id number] #### [facility] [address] [place] [address], [place] EPIS FEW Normal FEW,OCC,NONE SEEN The [facility] Comment on above: Order Comment: Left Peural Effusion Performed By: #### 3 [id number] #### [facility] [address] [place] [address], [place] Glucose Ql (U) >=500 Abnormal NEGATIVE The [facility] Comment on above: Order Comment: Left Peural Effusion Performed By: #### 3 [id number] #### [facility] [address] [place] [address], [place] Hemoglobin Ql (U) TRACE Abnormal NEGATIVE The [facility] Comment on above: Order Comment: Left Peural Effusion Performed By: #### 3 0318 #### [facility] [address] [place] [address], [facility] KETONE TRACE Abnormal NEGATIVE The [facility] Comment on above: Order Comment: Left Peural Effusion Performed By: #### 3 0318 #### [facility] [address] [place] [address], [place] LEUK JACIEL Negative Normal NEGATIVE The [facility] Comment on above: Order Comment: Left Peural Effusion Performed By: #### 3 0318 #### [facility] [address] [place] [address], [place] MUCUS THREADS OCC Abnormal NONE SEEN The [facility] Comment on above: Order Comment: Left Peural Effusion Performed By: #### 3 0318 #### [facility] [address] [place] [address], [place] Nitrite Ql (U) Negative Normal NEGATIVE The [facility] Comment on above: Order Comment: Left Peural Effusion Performed By: #### 3 [id number] #### [facility] [address] [place] [address], [place] pH (U) 6.0 [pH] Normal 5.0-8.0 The [facility] Comment on above: Order Comment: Left Peural Effusion Performed By: #### 3 0318 #### [facility] [address] [facility] Protein Ql (U) >=500 Abnormal NEGATIVE The [facility] Comment on above: Order Comment: Left Peural Effusion Performed By: #### 3 0318 #### [facility] [address] [facility] RBC 0-2 Abnormal NONE SEEN The [facility] Comment on above: Order Comment: Left Peural Effusion Performed By: #### 3 0318 #### [facility] [address] [facility] SPEC GRAV 1.017 Normal 1.015-1.020 The [facility] Comment on above: Order Comment: Left Peural Effusion Performed By: #### 3 0318 #### [facility] [address] [facility] WBC UA 3-5 Abnormal NONE SEEN The [facility] Comment on above: Order Comment: Left Peural Effusion Performed By: #### 3 0318 #### [facility] [address] Vital Signs Date Time Vital Sign Value Performing Clinician Facility 02-27-2024 11: Body height 193 cm Nima Lee MD Work Phone: [facility] 02-27-2024 11:25-040 Body mass index (BMI) [Ratio] 28 kg/m2 Nima Lee MD Work Phone: [facility] 02-27-2024 11:25040 Body temperature 97.11 [degF] Nima Lee MD Work Phone: [facility] 02-27-2024 11:25040 Body weight 104.33 kg Nima Lee MD Work Phone: [facility] 02-27-2024 11:25-0400 Diastolic blood pressure 80 mm[Hg] Nima Lee MD Work Phone: [facility] 02-27-2024 11:25-0400 Heart rate 78 /min [facility] 02-27-2024 11:25-0400 SaO2% (BldA) [Mass fraction] 98 % [facility]ima Lee MD [facility] 02-27-2024 11:25-0400 Systolic blood pressure 130 mm[Hg] Nima Lee MD Work Phone: [facility] 03-21-2021 15:40-0500 Body height 193.04 cm Judahmani Jaki Other [facility] Other 03-21-2021 15:40-0500 Body mass index (BMI) [Ratio] 39.02 kg/m2 Kike Gomesangela Other [facility] Other 03-21-2021 15:40-0500 Body temperature 97.8 [degF] Kike Jaki Other [facility] Other 03-21-2021 15:40-0500 Body weight 145.42 kg Kike Jaki Other [facility] Other 03-21-2021 15:40-0500 Diastolic blood pressure 84 mm[Hg] Kike Jaki Other [facility] Other 03-21-2021 15:40-0500 Respiratory rate 18 /min Kike Jaki Other [facility] Other 03-21-2021 15:40-0500 SaO2% (BldA) [Mass fraction] 96 % Judahmani Jaki Other [facility] Other 03-21-2021 15:40-0500 Systolic blood pressure 137 mm[Hg] Kike Pollack Other [facility] [employer] Other 08-25-2020 12:24-0400 Heart rate 82 /min Jose Valone Work Phone: [facility] 08-25-2020 12:24-0400 Respiratory rate 20 /min Jose Valone Work Phone: [facility] 08-25-2020 11:17-0400 Body temperature 98.7 [degF] Jose Valone Work Phone: [facility] 08-25-2020 11:17-0400 Diastolic blood pressure 94 mm[Hg] Jose Valone Work Phone: [facility] 08-25-2020 11:17-0400 SaO2% (BldA) [Mass fraction] 96 % Jose Valone Work Phone: [facility] 08-25-2020 11:17-0400 Systolic blood pressure 183 mm[Hg] Jose Valone Work Phone: [facility] 08-25-2020 06:00-0400 Body weight 160.5 kg Jose Valone Work Phone: [facility] 08-19-2020 14:17-0400 Body height 193.04 cm Jose Valone Work Phone: [facility] 08-18-2020 21:22-0400 Body height 193.04 cm Jose Valone Work Phone: [facility] 08-18-2020 21:22-0400 Body mass index (BMI) [Ratio] 43.8 kg/m2 Jose Valone Work Phone: [facility] 08-18-2020 21:22-0400 Body temperature 97.6 [degF] Jose Valone Work Phone: [facility] 08-18-2020 21:22-0400 Body weight 163.3 kg Jose Juarez Work Phone: [facility] 08-18-2020 21:22-0400 Diastolic blood pressure 80 mm[Hg] Jose Juarez Work Phone: [facility] 08-18-2020 21:22-0400 Heart rate 105 /min Jose Juarez Work Phone: [facility] 08-18-2020 21:22-0400 Respiratory rate 18 /min Jose Juarez Work Phone: [facility] 08-18-2020 21:22-0400 SaO2% (BldA) [Mass fraction] 94 % Jose Juarez Work Phone: [facility] 08-18-2020 21:22-0400 Systolic blood pressure 160 mm[Hg] Jose Juarez Work Phone: [facility] Encounters Encounter Date Encounter Type Care Provider Facility Start: 10-26-2024 End: 10-26-2024 ambulatory Chino Mark Anthony [facility] Work Phone: Start: 10-26-2024 End: 10-26-2024 Departed Referred Chino Elliott DPJuma [facility] -[facility] Start: 08-28-2024 End: 08-28-2024 ambulatory Chino Hopson [facility] Work Phone: Start: 08-28-2024 End: 08-28-2024 Departed Referred Chino Elliott DPM Work Phone: [facility] Start: 02-27-2024 End: 02-27-2024 Office outpatient visit 25 minutes Nima Lee MD Work Phone: [facility] V[facility] Surgery Comment on above: 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) Start: 02-17-2024 End: 02-17-2024 ambulatory JOSE JUAREZ [facility] Start: 01-20-2024 End: 01-20-2024 ambulatory JOSE JUAREZ [facility] Start: 12-16-2023 End: 12-16-2023 ambulatory JOSE JUAREZ [facility] Start: 11-19-2023 End: 11-19-2023 ambulatory JOSE JUAREZ [facility] Start: 10-23-2023 End: 10-23-2023 ambulatory JOSE JUAREZ [facility] Start: 09-03-2023 End: 09-03-2023 ambulatory JOSE JUAREZ [facility] Start: 07-31-2023 End: 07-31-2023 ambulatory JOSE JUAREZ [facility] Start: 07-02-2023 End: 07-02-2023 ambulatory JOSE JUAREZ [facility] Start: 06-04-2023 End: 06-04-2023 ambulatory JOSE Anmol JUAREZ [facility] Start: 05-31-2023 End: 06-01-2023 ambulatory JUANCARLOS LEHMAN [facility] Start: 05-06-2023 End: 05-06-2023 ambulatory JOSE JUAREZ [facility] Start: 04-19-2023 End: 04[facility] Start: 02-27-2023 End: 02-28-2023 ambulatory CHINO ELLIOTT [facility] Start: 09-11-2022 End: 09-12-2022 ambulatory CHINO ELLIOTT Facility:[facility] Start: 08-28-2022 End: 08-29-2022 ambulatory CHINO ELLIOTT Facility:[facility] Start: 08-24-2022 End: 08-25-[address] JOSE JUAREZ Facility:[facility] Start: 08-20-2022 End: 08-21-[address] JOSE JUAREZ Facility:[facility] Start: 08-19-2022 Encounter for preprocedural cardiovascular examination CHINO ELLIOTT [facility] Start: 08-19-2022 Encounter for preprocedural laboratory examination CHINO ELLIOTT [facility] Start: 08-19-2022 Encounter for preprocedural respiratory examination CHINO ELLIOTT [facility] Start: 08-15-2022 End: 08-16-[address] [...] ELLIOTT Facility:[facility] Start: 01-15-2022 End: 01-15-2022 ambulatory PETER [...] Facility:[facility] Start: 12-15-2021 End: 12-16-2021 ambulatory CHINO D HIGHLANDER Facility:[facility] Start: 12-11-2021 End: 12-12-2021 ambulatory CHINO D JOSEANDER Facility:[facility] Start: 11-30-2021 End: 12-01-[address] CARLOS EDUARDO SU . Facility:[facility] Start: 11-22-2021 End: 11-23-[address] CARLOS EDUARDO SU . Facility:[facility] Start: 11-21-2021 End: 11-22-2021 ambulatory CHINO Mark Anthony ELLIOTT Facility:[facility] Start: 11-14-[address] CARLOS EDUARDO SU . Faci lity:[facility]1 Start: 11-13-2021 End: 11-14-2021 ambulatory CHINO D HIGHLANDER Facility:[facility] Start: 11-07-2021 End: 11-08-2021 ambulatory PETER D HIGHLANDER Facility:[facility] Start: 10-31-2021 End: 11-01-2021 ambulatory PETER D HIGHLANDER Facility:[facility] Start: 10-24-2021 End: 10-25-2021 ambulatory PETER D HIGHLANDER Facility:[facility] Start: 10-17-2021 End: 10-18-2021 ambulatory PETER D HIGHLANDER Facility:[facility] Start: 10-09-2021 End: 10-10-2021 ambulatory PETER D HIGHLANDER Facility:[facility] Start: 03-21-2021 End: 03-21-2021 ambulatory Kike Pollack Other [facility] Other Start: 03-21-2021 Office outpatient vi sit 25 minutes Kike Pollack [facility] Start: 10-20-2020 End: 10-21-2020 ambulatory UNKNOWN PROVIDER Facility:[facility] Start: 09-28-2020 End: 09-28-2020 Patient encounter procedure Jose Juarez Work Phone: -Respiratory Therapy Start: 09-06-2020 End: 09-06-2020 Patient encounter procedure Jose Juarez Work Phone: -Electrodiagnostics Start: 08-18-2020 End: 08-25-2020 Evaluation and management of inpatient Jose Juarez Work Phone: -[facility] Start: 07-13-2020 End: 07-22-2020 Evaluation and management of inpatient SAVANNAH REYNOLDS Facility:[facility] Procedures Date Procedure Procedure Detail Performing [...] Work Phone: Start: 08-18-2020 Respiratory Panel (PCR) Jsoe Juarez Work Phone: Start: 07-19-2020 DRAINAGE OF L PLEURA L CAV WITH DRAIN DEV, [facility] Start: 07-19-2020 EXCISION OF LEFT PLE URA, PERC ENDO APPROACH, DIAGN [facility] Start: 07-19-2020 INTRODUCE OF OTH THE RAP SUBST INTO RESP TRACT, VIA OPENING [facility] Start: 07-19-2020 RELEASE LEFT PLEURA, PERCUTANEOUS [facility] Start: 07-15-2020 DRAINAGE OF LEFT PLE URAL CAVITY, PERC APPROACH, DIAGN [facility] Start: 07-15-2020 DRAINAGE OF LEFT PLE URAL CAVITY, PERCUTANEOUS APPROACH [facility] Start: 07-14-2020 DRAINAGE OF LEFT PLE URAL CAVITY, PERCUTANEOUS [facility] Start: 07-14-2020 ULTRASONOGRAPHY OF R IGHT AND LEFT HEART, TRANSESOPHAGEAL LOSR Laura CALLAWAY Plan of Treatment Date Care Activity Detail Author Start: 02-10-2027 DTaP,Tdap and Td Vac cines (2 - Td or Tdap) DTaP,Tdap and Td Vaccines (2 - Td or Tdap) [facility] Start: 10-26-2024 [facility] Start: 08-28-2024 [facility] Start: 05-06-2024 Urine screening for protein Urine Microalbumin [facility] Start: 02-27-2024 End: 02-26-2025 US.doppler Extremity arteries - bilateral for physiologic artery study Vas art doppler lwr bilat mult lev/PVR Vascular Ultrasound Routine Critical limb ischemia of left lower extremity with gangrene ([facility]) Expected: 02/27/2024, Expires: 02/26/2025 [employer] Work Phone: Comment on above: Expected: 02/27/2024 , Expires: 02/26/2025 Start: 12-29-2023 COVID-19 Vaccine ( season) COVID-19 Vaccine ( season) [facility] Start: 12-29-2023 Influenza vaccination Influenza Vacc ine [facility] Start: 08-18-2020 Bacteria identified in Blood by Culture Blood Culture [facility] Start: 02-04-2010 Administration of varicella zoster vaccine Zoster (Shingles) Vaccine (1 of 2) [facility] Start: 02-04-1978 Adult BMI Screening Adult BMI Screen ing [facility] Start: 02-04-1978 Diabetic foot examination Diabetic F oot Exam [facility] Start: 1972 Depression Screening Depression Scre ening [facility] Start: 1972 Tobacco Screening Tobacco Screening [facility] Start: 1960 Glaucoma screening Diabetic Op hthalmology Exam [facility] Patient referral [facility] Immunizations Immunization Date Immunization Notes Care Provider Fa cility 01-29-2020 influenza virus vacc ine, unspecified formulation Nima Lee MD Work Phone: [facility] 02-10-2017 tetanus toxoid, redu jennifer diphtheria toxoid, and acellular pertussis vaccine, adsorbed Nima Lee MD Work Phone: [facility] 05-27-2015 influenza, seasonal, injectable Kike Pollack Other [facility] 05-27-2015 pneumococcal polysaccharide vaccine, 23 valent Kike Pollack Other [facility] Payers Date Payer Category Payer Unknown [id number] 2017 [employer] Kendrick palmer Managed Care - Other [place] [id number] 1960 Unknown [id number] 2.16.840.1.520071.3.579. 2.647 1960 Unknown [id number] 2.16.840.1.609921.3.579. 2.732 1960 Unknown [id number] 2.16.840.1.591744.3.579. 2.593 1960 Unknown [id number] 2.16.840.1.074053.3.579. 2.593 1960 Unknown [id number] 2.16.840.1.529981.3.579. 2.593 1960 Unknown [id number] 2.16.840.1.933837.3.579. 2.593 1960 Unknown [id number] 2.16.840.1.475267.3.579. 2.593 1960 Unknown [id number] 2.16.840.1.603502.3.579. 2.593 1960 Unknown [id number] 2.16.840.1.823379.3.579. 2.593 1960 Unknown [id number] 2.16.840.1.556482.3.579. 2.593 1960 Unknown [id number] 2.16.840.1.816495.3.579. 2.593 1960 Unknown [id number] 2.16.840.1.577802.3.579. 2.593 1960 Unknown [id number] 2.16.840.1.037824.3.579. 2.593 1960 Unknown [id number] 2.16.840.1.706314.3.579. 2.593 1960 Unknown [id number] 2.16.840.1.087881.3.579. 2.593 1960 Unknown [id number] 2.16.840.1.538515.3.579. 2.593 1960 Unknown [id number] 2.16.840.1.265656.3.579. 2.593 1960 Unknown [id number] 2.16.840.1.578945.3.579. 2.593 1960 Unknown [id number] 2.16.840.1.411986.3.579. 2.593 1960 Unknown [id number] 2.16.840.1.023369.3.579. 2.593 1960 Unknown [id number] 2.16.840.1.876878.3.579. 2.593 1960 Unknown [id number] 2.16.840.1.148119.3.579. 2.593 1960 Unknown [id number] 2.16.840.1.971217.3.579. 2.593 1960 Unknown [id number] 2.16.840.1.191518.3.579. 2.593 1960 Unknown [id number] 2.16.840.1.440342.3.579. 2.593 1960 Unknown [id number] 2.16.840.1.431804.3.579. 2.593 1960 Unknown [id number] 2.16.840.1.533994.3.579. 2.593 1960 Unknown [id number] 2.16.840.1.681160.3.579. 2.593 1960 Unknown [id number] 2.16.840.1.645927.3.579. 2.593 1960 Unknown [id number] 2.16.840.1.278057.3.579. 2.593 1960 Unknown [id number] 2.16.840.1.228159.3.579. 2.593 1960 Unknown [id number] 2.16.840.1.633514.3.579. 2.593 1960 Unknown [id number] 2.16.840.1.127237.3.579. 2.593 1960 Unknown [id number] 2.16.840.1.120154.3.579. 2.593 1960 Unknown [id number] 2.16.840.1.259889.3.579. 2.593 1960 Unknown [id number] 2.16.840.1.653906.3.579. 2.593 1960 Unknown [id number] 2.16.840.1.796493.3.579. 2.593 1960 Unknown [id number] 2.16.840.1.516742.3.579. 2.593 1960 Unknown [id number] 2.16.840.1.111028.3.579. 2.593 1960 Unknown [id number] 2.16.840.1.509344.3.579. 2.593 1960 Unknown [id number] 2.16.840.1.604005.3.579. 2.593 1960 Unknown [id number] 2.16.840.1.159392.3.579. 2.593 1960 Unknown [id number] 2.16.840.1.313279.3.579. 2.593 1960 Unknown [id number] 2.16.840.1.420374.3.579. 2.593 1960 Unknown [id number] 2.16.840.1.266078.3.579. 2.593 1960 Unknown [id number] 2.16.840.1.343676.3.579. 2.593 1960 Unknown [id number] 2.16.840.1.422067.3.579. 2.1286 1960 Unknown [id number] 2.16.840.1.737867.3.579. 2.1286 1960 Unknown [id number] 2.16.840.1.334453.3.579. 2.1286 1960 Unknown [id number] 2.16.840.1.841561.3.579. 2.1286 1960 Unknown [id number] 2.16.840.1.462563.3.579. 2.1286 1960 Unknown [id number] 2.16.840.1.113690.3.579. 2.1286 1960 Unknown [id number] 2.16.840.1.560220.3.579. 2.1286 1960 Unknown [id number] 2.16.840.1.570056.3.579. 2.1286 1960 Unknown [id number] 2.16.840.1.455757.3.579. 2.1286 1960 Unknown [id number] 2.16.840.1.496395.3.579. 2.1286 1960 Unknown [id number] 2.16.840.1.964798.3.579. 2.1286 1959 Unknown [id number] Medicare Self Pay [id number] Medicare Medicare [id number] Self-pay Self Pay [id number] Social History Date Type Detail Facility Tobacco smoking stat [facility] Unknown if ever smoked [facility] Start: 1960 Sex Assigned At Male F [facility] Start: 08-18-2020 [facility] Start: 08-22-2020 Tobacco [facility] Never smoked tobacco (finding) [facility] Start: 06-09-2020 End: 02-27-2024 Sex Assigned At [facility] Start: 02-10-2017 Tobacco smoking stat [facility] Ex-smoker [facility] End: 02-11-2016 History of tobacco use Current smoker [facility] End: 02-11-2016 History of tobacco use Cigarette Smoker [facility] Start: 02-10-2017 Tobacco use and exposure Smokeless tobacco non-user [facility] Start: 02-27-2024 Alcoholic beverage intake Current non-drinker of alcohol (finding) [facility] Start: 06-09-2020 End: 02-27-2024 History of Social function [facility] Childcare Unknown [facility] Start: 1960 Sex assigned at Not on file P [facility] Start: 12-02-2014 End: 08-29-2024 Sex Male (finding) [facility] tem Goals Date Patient Goal Desired Activity /State Functional Status Date Assessment Result Facility 08-25-2020 Functional status Patient at Baseline [facility] Mental Status Date Assessment Result Facility 08-25-2020 Cognitive function Cognitive Sta tus Patient at Baseline [facility] Clinical Notes 07-15-2020 to 02-27-2024 Assessment & Plan Note - Nima Lee MD - 02/27/2024 11:44 AM EDTAssessment & Plan Note - Nima Lee MD - 02/27/2024 11:44 AM EDTMbernard Lee MD - 02/27/2024 11:20 AM EDT Note Date & Type Note Facility 02-27-2024 Evaluation + Plan note Associated Problem(s): Critical limb ischemia of left lower extremity with gangrene ([facility]) PVR [facility] 02-27-2024 Miscellaneous Notes Associate d Problem(s): Critical limb ischemia of left lower extremity with gangrene ([facility]) PVR documented in this encounter [facility] 02-27-2024 History of Presen t illness Narrative [...] musculoskeletal pain COPD (chronic obstructive pulmonary disease) [place] Diabetes mellitus ([facility] Fracture, clavicle History of MRSA (methicillin resistant Staphylococcus aureus) Neuropathy Renal failure Dialysis since 04/2014 Past Surgical History: Past Surgical History: Procedure Laterality Date APPENDECTOMY CHOLECYSTECTOMY DIALYSIS FISTULA CREATION Right arm INJECTION CAUDAL EPIDURAL WITH CATHETER, STEROID N/A 06/05/2019 Performed by Jefferson Bryant MD at [facility] PAIN TOE AMPUTATION Right 5th TONSILLECTOMY Social [...] (CMS-HCC) - Primary Current Assessment & Plan PVR Rashard was seen today for steam tender-foot wound- left- no testing. Diagnoses and all orders for this visit: Critical limb ischemia of left lower extremity with gangrene (CMS-HCC) Nima Lee MD, MISTY, RPVI, FSVS, FACS [facility] [employer] This note was created with the assistance of a speech recognition program. While intending to generate a timely document that accurately reflects the content of the visit, no guarantee can be provided that every grammatical or spelling mistake has been or will be identified or corrected. Thank you for your understanding. 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 [facility] 03-01-2022 Note CONSULTATION PROCEDURE DATE: [...] pattern and patient tolerated procedure well. [facility] 12-22-2021 Note PROCEDURE: XR ANKLE [...] PRISCA SANDERSON Date: 2021-12-22 10:12 [facility] 12-22-2021 Note PROCEDURE: XR ANKLE LT [...] PRISCA SANDERSON Date: 2021-12-22 10:12 [facility] 12-22-2021 Note PROCEDURE: XR ANKLE LT [...] PRISCA SANDERSON Date: 2021-12-22 10:12 [facility] 12-22-2021 Note PROCEDURE: XR ANKLE LT 2V HISTORY: Pain ; left ankle external fixation application COMPARISON: None. FINDINGS: BONES:3 intraoperative spot fluoroscopic images demonstrate external fixation device surrounding the left ankle. IMPRESSION: External fixation device application. Electronically authenticated by: PRISCA SANDERSON Date: 2021-12-22 10:07 [facility] 12-12-2021 Note PROCEDURE: XR FOOT L [...] by: PRISCA SANDERSON Date: 2021-12-12 08:04 [facility] 11-30-2021 Note CONSULTATION The patient [...] in clinic in three months' time. [facility] 11-22-2021 Note CONSULTATION CONSULTATION DATE: [...] to the clinic to receive those. [facility] 11-14-2021 Note PROCEDURE: XR FOOT [...] by: PRISCA SANDERSON Date: 2021-11-14 15:42 [facility] 11-07-2021 Note PROCEDURE: XR FOOT L [...] JAMESON SALGUERO Date: 2021-11-07 19:28 [facility] 03-21-2021 Evaluation note Encounter Date Diagnosis [...] takes midodrine as well as stated above. [facility] Other 03-27-2021 NoteMR#: [id number] [facility] Pt. Name: Rashard Lyman Admitted: 07/13/2020 Discharged: [...] chest pain. Also, there is mention on [place] records of large inferior/lateral wall abnormality in [...] ON DISCHARGE: A (more content not included)...The [facility]03-19-2021 NoteMR#: [id number] [facility] Pt. Name: Rashard Lyman Surgery Date: 07/14/2020 Room #: [id number] Date of : 1960 PROCEDURE NOTE ATTENDING: [...] Pham MD Date Trans: 07/15/2020 01:32 P/ [id number] cc: Nima Wynne MD [address] [place], [place] [address] [place] [address] NoteMR#: [id number] [facility] Pt. 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 STATION MANAGER: Davis Pham Indications: Nura Munoz is [...] Wynne MD Date Trans: 07/15/2020 12:53 P/ [id number] [facility] Diagnosis Onset Date Resolution Status Hyperglycemia acute Pneumonia acute Psoriasis acute 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 acute CKD (chronic kidney disease) stage 4, GFR 15-29 ml/min chronic COPD (chronic obstructive pulmonary disease) chronic 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 GERD (gastroesophageal reflux disease) chronic Obesities, morbid chronic Peripheral vascular occlusive disease chronic 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 Diagnosis Onset Date Resolution Status MARISOL (acute kidney injury) ac alutiiq Anemia of renal disease acut e Atelectasis of left lung acu te Fibrothorax acute History of pleural effusion acute Metabolic acidosis acute Pericarditis acute Pleuritic chest pain acute Psoriasis acute 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 acute CKD (chronic kidney disease) stage 4, GFR 15-29 ml/min chronic COPD (chronic obstructive pulmonary disease) chronic 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 GERD (gastroesophageal reflux disease) chronic Hypertension chronic [id number] chronic Obesities, morbid chronic Peripheral vascular occlusive disease chronic 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 [facility]* Diagnosis Critical limb ischemia of left lower extremity with gangrene ([facility])- Primary [facility] noteNo assessment information available [facility] Work Phone: History general Narrative [...] HIS LOWER BACK Hospitalization History see above [facility] Other Hospital Discharge instructions Additional Instructions You are scheduled for an outpatient follow up ECHOCARDIOGRAM in 2 weeks at [facility] to re-assess your pericardial effusions on 09/06/2020 at 12:30pm. HOME HEALTH TO MANAGE: Full code Nursing to eval and treat Monitor VS per protocol Monitor cardiovascular, respiratory and skin assessments Please draw a Renal Panel on 08/29/20. Send to Dr. Juraez and Dr. Pollack. Assist with medication management Assist with glucose control Wound care daily to the right richard: *Flush with normal saline, pat dry. Apply hydrogel, adaptic, gauze, conform *Wrap with ines wrap from base of toes to the knee Educate on high risk fall precautions [facility] InstructionsNot on filedocumented in this encounterMer[facility] SystemReason for referral (narrative)No reason for referral information availableKn[facility] Work Phone: Assessments No Assessments Information Available Advance Directives [...] 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 GERD (gastroesophageal reflux disease) Hypertension [id number] Obesities, morbid Peripheral vascular occlusive disease Status [...] 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 GERD (gastroesophageal reflux disease) Hypertension [id number] Obesities, morbid Peripheral vascular occlusive disease Status [...] 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 GERD (gastroesophageal reflux disease) Hypertension [id number] Obesities, morbid Peripheral vascular occlusive disease Status post amputation of toe of right foot Chief Complaint Admit Date Unknown August 28, 2024 11:03a m Chief Complaint Admit Date Unknown August 28, 2024 11:03a m Unknown October 26, 2024 12:0 1pm Summary Purpose Family History Relationship Condition Age [...] and content) DATE CREATED AUTHOR 09/11/2020 [facility] DATE CREATED AUTHOR AUTHOR'S ORGANIZ ATION 10/21/2020 [email or web address] DATE CREATED AUTHOR AUTHOR'S ORGANIZ ATION 10/05/2022 [facility] DATE CREATED AUTHOR AUTHOR'S ORGANIZ ATION 06/03/[address] 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 Non healing. Care Teams (unrecognized sec tion and content) Crime Scene Investigator Relationship Specialty Start Date End Date LarryJose Jr., DO [address] [place] [address] PCP - General Internal Medicine 02/10/17 Team Status: Inactive Member Role Status Dates Chino Elliott DPM MS Attending Provider Active Start: August 28, 2024 End: August 28, 2024 Team Status: Inactive Member Role Status Dates hCino Elliott DPM MS Attending Provider Active Start: October 26, 2024 End: October 26, 2024 FOR RECORDS PERTAINING TO PATIENTS WHO [...] BE BASED ON THE PRIMARY CLINICAL RECORDS. [employer] provides no warranty or guarantee of the accuracy or completeness of information in this document.
== END 2024-12-10 15:18 | disposition home or self-care (01) ==
LOC: WC 15:17
PROVIDERS: PCP Internal Medicine; Visit Provider Physician Assistant
DX: E11.621 Type 2 diabetes mellitus with foot ulcer (principal); L97.425 Non-pressure chronic ulcer of left heel and midfoot with muscle involvement without evidence of necrosis; L97.515 Non-pressure chronic ulcer of other part of right foot with muscle involvement without evidence of necrosis
CPT/HCPCS: 29445

== ENCOUNTER 2024-12-15 14:46 | Outpatient (OUT) | payer BC, SELFPAY ==
--- OUTSIDE RECORDS SUMMARY | 2024-12-15 15:59 | XMS_ITS | CCD ---
Author Organization [facility] Care Team Providers Care Favor Maker Name Role Phone Jose Juarez Primary Care Provider [phone] Eugene Morel Admit Provider [phone] Eugene Morel Attending Provider Gordon Ewing Attending Provider Patria Cheung Attending Provider [phone] SAVANNAH REYNOLDS Admitting Unavailable SAVANNAH REYNOLDS Attending Unavailable JOSE JUAREZ Primary Care Unavailable JOSE JUAREZ Referring Unavailable ND Procedure Practitioner Unavailab TRISHA Ozuna Surgeon Unavailable NIMA WYNNE Surgeon Unavailable ND Procedure Practitioner Unavailab Jose Andres Primary Care Provider Eugene Morel Admit Provider Gordon Ewing Attending Provider Patria Cheung [...] VALONE, DR RIOS Primary Care Unavailable HIGHLHERNESTO, CHINO Hopson Attending Unavailable VALONE, DR RIOS [...] Primary Care Provider Earl DPMChino Attending Provider Earl DPJuma, Chino Hopson Attending Provider Chino Elliott Admitting Unavailable Chino Elliott Attending Unavailable Earl, Chino Hopson Attending Unavailable Chino Elliott Admitting Unavailable Unavailable Unavailable Unavailable Allergies Allergy Classification Reported Allergen(s) Allergy Type Date of Onset Reaction(s) Facility exenatide (1 source) exenatide Drug Allergy 07-14-19 21 [facility] Repository NSAIDs (5 sources) celecoxib; Translations: [Celebrex] Drug Allergy 07-14-19 21 Difficulty Breathing [facility] Repository Phenolphthalein (1 source) Phenolphthalein Drug Allergy 07-14-19 21 [facility] Repository (7 sources) celecoxib; Translations: [celecoxib] Drug Allergy 07-21-19 17 Difficulty Breathing, bad for kidney, Difficulty Breathing, bad for kidney [facility] Repository (6 sources) Aspirin; Translations: [ASPIRIN] Drug Allergy 07-21-19 17 bad for kidney [facility] Repository (3 sources) Amoxicillin Drug Allergy 07-09-19 20 [facility] Repository (1 source) celecoxib Drug Allergy 07-09-19 20 [facility] Repository (1 source) exenatide Drug Allergy 07-09-19 20 [facility] Repository (1 source) Phenolphthalein Drug Allergy 07-09-19 20 [facility] Repository (3 sources) exenatide; Translations: [EXENATIDE] Drug Allergy 07-21-19 17 [facility] Repository (3 sources) HYLAN G-F 20; Translations: [HYLAN G-F 20] Propensity to adverse reactions to drug (disorder) 07-21-19 17 [facility] Repository (2 sources) exenatide Drug Allergy 09-14-19 [facility] (2 sources) OXcarbazepine Drug Allergy 09-14-19 23 [facility] Medications Current Medications Medication Drug Class(es) Dates [...] Start: 08-18-2020 take 1 capsule by mo [facility] once daily B Complex With C 20-Folic [...] lower limb ischemia ; Translations: [Atherosclerosis of [place] arteries of extremities with gangrene, left leg] [...] Other [facility] (current) drug therapy; Translations: [OTH [facility] CURRENT DRUG THERAPY] Onset: 08-20-2022 Episodic Other 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 Scanned copy available in EMR. PERFORMED BY: [place] [address] PATHOLOGIST SUPERVISOR UNDERWRITING CLERKS CARLOS BIRMINGHAM M.D. Performed By: #### P ATH TO [facility] #### [address] No Panel InformationOrdered By: Chino Elliott on 08-28-2024 Miscellaneous Pathology Test See comment [facility] Comment on above: See report. Scanned copy available in EMR. Pathology Request for Lab Co rpon 08-28-2024 Pathology Request for Lab Truman Normal [facility] Comment on above: Order Comment: RIGHT HALLUX Result Comment: See report. Scanned copy available in EMR. PERFORMED BY: [place] [address] PATHOLOGIST SUPERVISOR UNDERWRITING [employer]ERKS NIMA MCCLELLAN M.D. Performed By: #### P ATH TO [facility] #### [facility] [address] [place] [address] BLOOD UREA NITROGENon 2023 Urea nitrogen [Mass/Vol] 40 mg/dL High 5-27 [facility] Comment on above: Performed By: #### E LEC, 3094-0, INSURANCE HEALTHCARE REPRESENTATIVE, 24299-2 #### [facility] ([id number]) [address] [facility] [place] [address] #### 66289-5, HA1C #### [facility] ([id number]) [address] [facility], [address] [place] [address] CBC AND AUTO DIFFon 02-17-20 ABSOLUTE BASOPHIL 0.0 X10E9/L Normal 0.0-0.2 [facility] Comment on above: Performed By: #### U A #### [facility] ([id number]) [address] [place] [address] 88018 ABSOLUTE NEUTROPHIL 5.2 X10E9/L Normal 1.5-6.6 [facility] Comment on above: Performed By: #### U A #### [facility] ([id number]) [address] [place] [address] 22835 Basophils/100 WBC (Bld) 0.6 % Normal [facility] Comment on above: Performed By: #### U A #### [facility] ([id number]) [address] [place] [address] 48739 Eosinophils (Bld) [#/Vol] 0.6 10*3/uL High 0.0-0.4 [facility] Comment on above: Performed By: #### U A #### [facility] ([id number]) [address] [place] [address] 52728 Eosinophils/100 WBC (Bld) 6.5 % Normal [facility] Comment on above: Performed By: #### U A #### [facility] ([id number]) [address] [place] [address] 30647 Erythrocyte distribution width (RBC) [Ratio] 14.2 % Normal 11.5-15.0 [facility] Comment on above: Performed By: #### U A #### [facility] ([id number]) [address] [place] [address] 13497 Hematocrit (Bld) [Volume fraction] 37.5 % Low 39-49 [facility] Comment on above: Performed By: #### U A #### [facility] ([id number]) [address] [place] [address] 62062 Hemoglobin (Bld) [Mass/Vol] 12.3 g/dL Low 13.0-17.0 [facility] Comment on above: Performed By: #### U A #### [facility] ([id number]) [address] [place] [address] 99423 Lymphocytes (Bld) [#/Vol] 1.9 10*3/uL Normal 1.0-3.5 [facility] Comment on above: Performed By: #### U A #### [facility] ([id number]) [address] [place] [address] 33078 Lymphocytes/100 WBC (Bld) 21.4 % Normal [facility] Comment on above: Performed By: #### U A #### [facility] ([id number]) [address] [place] [address] 76852 MCH (RBC) [Entitic mass] 29.3 pg Normal 27-34 [facility] Comment on above: Performed By: #### U A #### [facility] ([id number]) [address] [place] [address] 12805 MCHC (RBC) [Mass/Vol] 32.7 g/dL Normal 32-36 [facility] Comment on above: Performed By: #### U A #### [facility] ([id number]) [address] [place] [address] 63979 MCV (RBC) [Entitic vol] 90 fL Normal 80-100 [facility] Comment on above: Performed By: #### U A #### [facility] ([id number]) [address] [place] [address] 13721 Monocytes (Bld) [#/Vol] 1.1 10*3/uL High 0-0.9 [facility] Comment on above: Performed By: #### U A #### [facility] ([id number]) [address] [place] [address] 18590 Monocytes/100 WBC (Bld) 12.8 % Normal [facility] Comment on above: Performed By: #### U A #### [facility] ([id number]) [address] [place] [address] 74428 Neutrophils/100 WBC (Bld) 58.7 % Normal [facility] Comment on above: Performed By: #### U A #### [facility] ([id number]) [address] [place] [address] 58914 Platelet mean volume (Bld) [Entitic vol] 6.6 fL Low 7-12 [facility] Comment on above: Performed By: #### U A #### [facility] ([id number]) [address] [place] [address] 22181 Platelets (Bld) [#/Vol] 281 10*3/uL Normal 150-450 [facility] Comment on above: Performed By: #### U A #### [facility] ([id number]) [address] [place] [address] 02441 RBC COUNT 4.19 X10E12/L Normal 4.10-5.70 [facility] Comment on above: Performed By: #### U A #### [facility] ([id number]) [address] [place] [address] 99943 WBC (Bld) [#/Vol] 8.8 10*3/uL Normal 4.0-11.0 [facility] Comment on above: Performed By: #### U A #### [facility] ([id number]) [address] [place] [address] 23223 CREATININEon 02-17-2024 Creatinine [Mass/Vol] 3.74 mg/dL High 0.70-1.20 [facility] Comment on above: Result Comment: METH OD TRACEABLE TO IDMS STANDARD Performed By: #### E LEC, 3094-0, INSURANCE HEALTHCARE REPRESENTATIVE, 33776-8 #### [facility] ([id number]) [address] [place] [address] 76086 #### 55709-1, HA1C #### [facility] ([id number]) [address] [place] [address], [address] [place] [address] GFR/1.73 sq M.predicted among non-blacks MDRD (S/P/Bld) [Vol rate/Area] 17 mL/min/{1.73_m2} Low >59 [facility] Comment on above: Result Comment: Reported eGFR is based on the CKD-EPI 2020 equation that does not use a race coefficient. Performed By: #### E LEC, 3094-0, INSURANCE HEALTHCARE REPRESENTATIVE, 97922-8 #### [facility] ([id number]) [address] [place] [address] 40163 #### 12971-6, HA1C #### [facility] ([id number]) [address] [place] [address], [address] [place] [address] ELECTROLYTESon 02-17-2024 Anion gap [Moles/Vol] 8 mmol/L Normal 5-15 [facility] Comment on above: Performed By: #### Tiki LEC, 309-0, INSURANCE HEALTHCARE REPRESENTATIVE, 44386-1 #### [facility] ([id number]) [address] [place] [address] 30869 #### 06644-1, HA1C #### [facility] ([id number]) [address] [place] [address], [address] [place] [address] Chloride [Moles/Vol] 106 mmol/L Normal 98-109 [facility] Comment on above: Performed By: #### E LEC, 3094-0, INSURANCE HEALTHCARE REPRESENTATIVE, 42465-3 #### [facility] ([id number]) [address] [place] [address] 48265 #### 66343-5, HA1C #### [facility] ([id number]) [address] [place] [address], [address] [place] [address] CO2 [Moles/Vol] 21 mmol/L Low 22-32 [facility] Comment on above: Performed By: #### E LEC, 3094-0, INSURANCE HEALTHCARE REPRESENTATIVE, 40845-2 #### [facility] ([id number]) [address] [place] [address] 19737 #### 65374-1, HA1C #### [facility] ([id number]) [address] [facility], [address] [place] [address] Potassium [Moles/Vol] 5.2 mmol/L High 3.5-5.0 [facility] Comment on above: Performed By: #### E LEC, 3094-0, INSURANCE HEALTHCARE REPRESENTATIVE, 24431-9 #### [facility] ([id number]) [address] [place] [address] 23314 #### 52788-9, HA1C #### [facility] ([id number]) [address] [facility], [address] [place] [address] Sodium [Moles/Vol] 135 mmol/L Normal 134-146 [facility] Comment on above: Performed By: #### E LEC, 3094-0, INSURANCE HEALTHCARE REPRESENTATIVE, 72508-0 #### [facility] ([id number]) [address] [place] [address] 54358 #### 56760-9, HA1C #### [facility] ([id number]) [address] [facility], [address] [place] [address] BLOOD UREA NITROGENon 2023 Urea nitrogen [Mass/Vol] 50 mg/dL High 5-27 [facility] Comment on above: Performed By: #### U A #### [facility] ([id number]) [address] [place] [address] 49683 CALCIUMon 01-20-2024 Calcium [Mass/Vol] 8.7 mg/dL Normal 8.5-10.5 [facility] Comment on above: Performed By: #### B MP, CBCA, 1987-08, 82256-7 #### [facility] ([id number]) [address] [place] [address] 18443 #### 47336-1 #### [facility] ([id number]) [address] [facility], [address] [place] [address] CBC AND AUTO DIFFon 01-20-20 24 ABSOLUTE BASOPHIL 0.1 X10E9/L Normal 0.0-0.2 [facility] Comment on above: Performed By: #### B ALCON, CBCA, 1987-08, 56440-5 #### [facility] ([id number]) [address] [place] [address] 11015 #### 59252-4 #### [facility] ([id number]) [address] [facility], [address] [place] [address] ABSOLUTE NEUTROPHIL 6.0 X10E9/L Normal 1.5-6.6 [facility] Comment on above: Performed By: #### B ALCON, CBCA, 1987-08, 93515-5 #### [facility] ([id number]) [address] [place] [address] 25295 #### 33552-0 #### [facility] ([id number]) [address] [facility], [address] [place] [address] Basophils/100 WBC (Bld) 0.6 % Normal [facility] Comment on above: Performed By: #### B MP, CBCA, 1987-08, 62309-1 #### [facility] ([id number]) [address] [place] [address] 15608 #### 95448-8 #### [facility] ([id number]) [address] [facility], [address] [place] [address] Eosinophils (Bld) [#/Vol] 0.3 10*3/uL Normal 0.0-0.4 [facility] Comment on above: Performed By: #### Laura RONDON, CBCA, 1987-08, 83305-1 #### [facility] ([id number]) [address] [place] [address] 11666 #### 66999-2 #### [facility] ([id number]) [address] [facility], [address] [place] [address] Eosinophils/100 WBC (Bld) 3.1 % Normal [facility] Comment on above: Performed By: #### Laura RONDON CBCA, 1987-08, #### [facility] ([id number]) [address] [place] [address] 50969 #### 39037-9 #### [facility] ([id number]) [address] [facility], [address] [place] [address] Erythrocyte distribution width (RBC) [Ratio] 13.5 % Normal 11.5-15.0 [facility] Comment on above: Performed By: #### Laura RONDON CBCA, 1987-08, #### [facility] ([id number]) [address] [place] [address] 39464 #### 26626-9 #### [facility] ([id number]) [address] [facility], [address] [place] [address] Hematocrit (Bld) [Volume fraction] 36.1 % Low 39-49 [facility] Comment on above: Performed By: #### Laura RONDON CBCA, 1987-08, #### [facility] ([id number]) [address] [place] [address] 74292 #### 74722-2 #### [facility] ([id number]) [address] [facility], [address] [place] [address] Hemoglobin (Bld) [Mass/Vol] 11.8 g/dL Low 13.0-17.0 [facility] Comment on above: Performed By: #### B ALCON, CBCA, 1987-08, #### [facility] ([id number]) [address] [place] [address] 56980 #### 33408-6 #### [facility] ([id number]) [address], [address] [place] [address] Lymphocytes (Bld) [#/Vol] 2.0 10*3/uL Normal 1.0-3.5 [facility] Comment on above: Performed By: #### Laura RONDON CBCA, 1987-08, #### [facility] ([id number]) [address] [place] [address] 59959 #### 16478-7 #### [facility] ([id number]) [address], [address] [place] [address] Lymphocytes/100 WBC (Bld) 20.7 % Normal [facility] Comment on above: Performed By: #### Laura RONDON CBCA, 1987-08, #### [facility] ([id number]) [address] [place] [address] 02588 #### 54331-1 #### [facility] ([id number]) [address], [address] [place] [address] MCH (RBC) [Entitic mass] 29.1 pg Normal 27-34 [facility] Comment on above: Performed By: #### Laura RONDON CBCA, 1987-08, #### [facility] ([id number]) [address] [place] [address] 76314 #### 49963-8 #### [facility] ([id number]) [address], [address] [place] [address] MCHC (RBC) [Mass/Vol] 32.8 g/dL Normal 32-36 [facility] Comment on above: Performed By: #### Laura RONDON, CBCA, 1987-08, #### [facility] ([id number]) [address] [place] [address] 62545 #### 89496-6 #### [facility] ([id number]) [address] [facility], [address] [place] [address] MCV (RBC) [Entitic vol] 89 fL Normal 80-100 [facility] Comment on above: Performed By: #### B ALCON CBCA, 1987-08, #### [facility] ([id number]) [address] [place] [address] 26589 #### 15944-5 #### [facility] ([id number]) [address] [facility], [address] [place] [address] Monocytes (Bld) [#/Vol] 1.2 10*3/uL High 0-0.9 [facility] Comment on above: Performed By: #### Laura RONDON, CBCA, 1987-08, #### [facility] ([id number]) [address] [place] [address] 32304 #### 79507-4 #### [facility] ([id number]) [address] [facility], [address] [place] [address] Monocytes/100 WBC (Bld) 12.3 % Normal [facility] Comment on above: Performed By: #### Laura RONDON, CBCA, 1987-08, #### [facility] ([id number]) [address] [place] [address] 39540 #### 01866-2 #### [facility] ([id number]) [address] [facility], [address] [place] [address] Neutrophils/100 WBC (Bld) 63.3 % Normal [facility] Comment on above: Performed By: #### B ALCON CBCA, 1987-08, #### [facility] ([id number]) [address] [place] [address] 36194 #### 88355-0 #### [facility] ([id number]) [address] [facility], [address] [place] [address] Platelet mean volume (Bld) [Entitic vol] 7.7 fL Normal 7-12 [facility] Comment on above: Performed By: #### Laura RONDON CBCA, 1987-08, #### [facility] ([id number]) [address] [place] [address] 25132 #### 93392-9 #### [facility] ([id number]) [address] [facility], [address] [place] [address] Platelets (Bld) [#/Vol] 264 10*3/uL Normal 150-450 [facility] Comment on above: Performed By: #### Laura RONDON CBCA, 1987-08, 57162-7 #### [facility] ([id number]) [address] [place] [address] 90113 #### 57613-4 #### [facility] ([id number]) [address] [facility], [address] [place] [address] RBC COUNT 4.07 X10E12/L Low 4.10-5.70 [facility] Comment on above: Performed By: #### Laura RONDON CBCA, 1987-08, #### [facility] ([id number]) [address] [place] [address] 44026 #### 78372-4 #### [facility] ([id number]) [address] [facility], [address] [place] [address] WBC (Bld) [#/Vol] 9.4 10*3/uL Normal 4.0-11.0 [facility] Comment on above: Performed By: #### B MP, CBCA, 1987-, 96889-3 #### [facility] ([id number]) [address] [place] [address] 55879 #### 31160-3 #### [facility] ([id number]) [address] [facility], [address] [place] [address] CREATININEon 01-20-2024 Creatinine [Mass/Vol] 3.14 mg/dL High 0.70-1.20 [facility] Comment on above: Result Comment: METH OD TRACEABLE TO IDMS STANDARD Performed By: #### U A #### [facility] ([id number]) [address] [place] [address] 26287 GFR/1.73 sq M.predicted among non-blacks MDRD (S/P/Bld) [Vol rate/Area] 21 mL/min/{1.73_m2} Low >59 [facility] Comment on above: Result Comment: Reported eGFR is based on the CKD-EPI 2020 equation that does not use a race coefficient. Performed By: #### U A #### [facility] ([id number]) [address] [place] [address] 49344 ELECTROLYTESon 01-20-2024 Anion gap [Moles/Vol] 8 mmol/L Normal 5-15 [facility] Comment on above: Performed By: #### U A #### [facility] ([id number]) [address] [place] [address] 96796 Chloride [Moles/Vol] 104 mmol/L Normal 98-109 [facility] Comment on above: Performed By: #### U A #### [facility] ([id number]) [address] [place] [address] 36425 CO2 [Moles/Vol] 19 mmol/L Low 22-32 [facility] Comment on above: Performed By: #### U A #### [facility] ([id number]) [address] [place] [address] 00300 Potassium [Moles/Vol] 4.9 mmol/L Normal 3.5-5.0 [facility] Comment on above: Performed By: #### U A #### [facility] ([id number]) [address] [place] [address] 87799 Sodium [Moles/Vol] 131 mmol/L Low 134-146 [facility] Comment on above: Performed By: #### U A #### [facility] ([id number]) [address] [place] [address] 48135 ESR Photometric method (Bld) [Velocity]on 01-20-2024 ESR, ERYTHROCYTE SEDIMENTATION RATE 98 mm/h High 0-20 [facility] Comment on above: Performed By: #### U A #### [facility] ([id number]) [address] [place] [address] 77034 HGB A1C (GLYCO-HGB)on 2023 Glucose [Mass/Vol] 289 mg/dL Normal [facility] Comment on above: Performed By: #### U A #### [facility] ([id number]) [address] [place] [address] 26291 HbA1c (Bld) [Mass fraction] 11.7 % High 4.4-5.6 [facility] Comment on above: Result Comment: NOTE ADA Guidelines Result HgbA1c Normal : less than 5.7 % Prediabetes : 5.7 % to 6.4 % Diabetes : > 6.4 % Use with caution in patients with abnormal hemoglobin variants as the half-life of red blood cells and in vivo glycation rates are affected. Performed By: #### U A #### [facility] ([id number]) [address] [place] [address] 93118 LIVER PANELon 01-20-2024 Albumin [Mass/Vol] 2.9 g/dL Low 3.2-5.3 [facility] Comment on above: Performed By: #### U A #### [facility] ([id number]) [address] [place] [address] 84252 ALP [Catalytic activity/Vol] 79 U/L Normal 39-130 [facility] Comment on above: Performed By: #### U A #### [facility] ([id number]) [address] [place] [address] 98803 ALT [Catalytic activity/Vol] 26 U/L Normal 0-40 [facility] Comment on above: Performed By: #### U A #### [facility] ([id number]) [address] [place] [address] 31134 AST [Catalytic activity/Vol] 19 U/L Normal 0-41 [facility] Comment on above: Performed By: #### U A #### [facility] ([id number]) [address] [place] [address] 69989 Bilirubin [Mass/Vol] 0.5 mg/dL Normal 0.3-1.2 [facility] Comment on above: Performed By: #### U A #### [facility] ([id number]) [address] [place] [address] 86108 Bilirubin.indirect [Mass/Vol] mg/dL Normal 0.0-0.4 [facility] Comment on above: Performed By: #### U A #### [facility] ([id number]) [address] [place] [id number] Protein [Mass/Vol] 6.9 g/dL Normal 6.0-8.0 [facility] Comment on above: Performed By: #### U A #### [facility] ([id number]) [address] [place] [address] [id number] Lipid 1996 panelon 4 Cholesterol [Mass/Vol] 136 mg/dL Low 150-200 [facility] Comment on above: Performed By: #### U A #### [facility] ([id number]) [address] [place] [address] [id number] Cholesterol in HDL [Mass/Vol] 40 mg/dL Normal >39 [facility] Comment on above: Result Comment: HDL <40 mg/dL - High Risk HDL > or = 40mg/dL- Desirable HDL >60 mg/dL - Negative Risk Performed By: #### U A #### [facility] ([id number]) [address] [place] [address]60 Cholesterol in LDL [Mass/Vol] 62 mg/dL Normal <130 [facility] Comment on above: Result Comment: LDL <100 mg/dL - Desirable LDL >160 mg/dL - High Risk Performed By: #### U A #### [facility] ([id number]) [address] [place] [address] 82651 Cholesterol in VLDL [Mass/Vol] 34 mg/dL High 0-30 [facility] Comment on above: Performed By: #### U A #### [facility] ([id number]) [address] [place] [address] 65234 CHOLESTEROL:HDL 3.4 Normal 1.0-5.0 [facility] Comment on above: Performed By: #### U A #### [facility] ([id number]) [address] [place] [address] 55793 Triglyceride [Mass/Vol] 172 mg/dL High 27-150 [facility] Comment on above: Performed By: #### U A #### [facility] ([id number]) [address] [place] [address] 02228 Natriuretic peptide B [Mass/ Vol]on 01-20-2024 Natriuretic peptide B (Bld) [Mass/Vol] 88 pg/mL Normal <100.0 [facility] Comment on above: Performed By: #### U A #### [facility] ([id number]) [address] [place] [address] 17810 Vitamin D+Metabolites [Mass/ Vol]on 01-20-2024 VITAMIN D 25 HYD TOT 15.1 ng/mL Low 30-100 [facility] Comment on above: Result Comment: Vitamin D status 25 [place] Vitamin D Deficiency <20 ng/mL Insufficiency 20-29 ng/mL Sufficiency 30-100 ng/mL Toxicity >100 ng/mL NOTE: A pediatric reference range has not been established by the it technical specialist of this kit. The [place] [employer] recommends a Vitamin D level of = or >20ng/mL in infants and children. Performed By: #### U A #### [facility] ([id number]) [address] [place] [address] 88835 BLOOD UREA NITROGENon 2023 Urea nitrogen [Mass/Vol] 50 mg/dL High 5-27 [facility] Comment on above: Performed By: #### B MP, CBCA, 1987-, 91208-7 #### [facility] ([id number]) [address] [place] [address] 25838 #### 53791-8 #### [facility] ([id number]) [address], [address] [place] [address] CBC AND AUTO DIFFon 12-16-19 24 ABSOLUTE BASOPHIL 0.0 X10E9/L Normal 0.0-0.2 [facility] Comment on above: Performed By: #### B MP, CBCA, 1987-08, 93097-8 #### [facility] ([id number]) [address] [place] [address] 92161 #### 00083-4 #### [facility] ([id number]) [address] [facility], [address] [place] [address] ABSOLUTE NEUTROPHIL 5.7 X10E9/L Normal 1.5-6.6 [facility] Comment on above: Performed By: #### B MP, CBCA, 1987-08, 18216-6 #### [facility] ([id number]) [address] [place] [address] 11083 #### 89572-9 #### [facility] ([id number]) [address] [facility], [address] [place] [address] Basophils/100 WBC (Bld) 0.4 % Normal [facility] Comment on above: Performed By: #### B MP, CBCA, 1987-08, 05166-2 #### [facility] ([id number]) [address] [place] [address] 18348 #### 19679-3 #### [facility] ([id number]) [address] [facility], [address] [place] [address] Eosinophils (Bld) [#/Vol] 0.4 10*3/uL Normal 0.0-0.4 [facility] Comment on above: Performed By: #### B MP, CBCA, 1987-08, 88010-7 #### [facility] ([id number]) [address] [place] [address] 20808 #### 64786-7 #### [facility] ([id number]) [address], [address] [place] [address] Eosinophils/100 WBC (Bld) 4.8 % Normal [facility] Comment on above: Performed By: #### B ALCON, CBCA, 1987-08, 67794-1 #### [facility] ([id number]) [address] [place] [address] 48483 #### 82575-2 #### [facility] ([id number]) [address] [facility], [address] [place] [address] Erythrocyte distribution width (RBC) [Ratio] 14.7 % Normal 11.5-15.0 [facility] Comment on above: Performed By: #### Laura RONDON, CBCA, 1987-08, 96471-2 #### [facility] ([id number]) [address] [place] [address] 94318 #### 26818-0 #### [facility] ([id number]) [address] [facility], [address] [place] [address] Hematocrit (Bld) [Volume fraction] 39.0 % Normal 39-49 [facility] Comment on above: Performed By: #### Laura RONDON, CBCA, 1987-08, 09172-7 #### [facility] ([id number]) [address] [place] [address] 08653 #### 24159-7 #### [facility] ([id number]) [address], [address] [place] [address] Hemoglobin (Bld) [Mass/Vol] 13.3 g/dL Normal 13.0-17.0 [facility] Comment on above: Performed By: #### Laura RONDON, CBCA, 1987-08, 01622-5 #### [facility] ([id number]) [address] [place] [address] 26123 #### 56262-4 #### [facility] ([id number]) [address], [address] [place] [address] Lymphocytes (Bld) [#/Vol] 1.7 10*3/uL Normal 1.0-3.5 [facility] Comment on above: Performed By: #### Laura MP, CBCA, 1987-08, #### [facility] ([id number]) [address] [place] [address] 53823 #### 06894-0 #### [facility] ([id number]) [address], [address] [place] [address] Lymphocytes/100 WBC (Bld) 19.3 % Normal [facility] Comment on above: Performed By: #### Laura MP, CBCA, 1987-08, #### [facility] ([id number]) [address] [place] [address] 18159 #### 01113-0 #### [facility] ([id number]) [address], [address] [place] [address] MCH (RBC) [Entitic mass] 29.8 pg Normal 27-34 [facility] Comment on above: Performed By: #### Laura MP, CBCA, 1987-08, #### [facility] ([id number]) [address] [place] [address] 15599 #### 39987-4 #### [facility] ([id number]) [address], [address] [place] [address] MCHC (RBC) [Mass/Vol] 34.0 g/dL Normal 32-36 [facility] Comment on above: Performed By: #### B MP, CBCA, #### [facility] ([id number]) [address] [place] [address] 79079 #### 64399-9 #### [facility] ([id number]) [address], [address] [place] [address] MCV (RBC) [Entitic vol] 88 fL Normal 80-100 [facility] Comment on above: Performed By: #### B MP, CBCA, 1987-08, #### [facility] ([id number]) [address] [place] [address] 22676 #### 55833-5 #### [facility] ([id number]) [address], [address] [place] [address] Monocytes (Bld) [#/Vol] 0.8 10*3/uL Normal 0-0.9 [facility] Comment on above: Performed By: #### B ALCON, CBCA, 1987-08, #### [facility] ([id number]) [address] [place] [address] 59231 #### 48182-1 #### [facility] ([id number]) [address], [address] [place] [address] Monocytes/100 WBC (Bld) 8.8 % Normal [facility] Comment on above: Performed By: #### Laura MP, CBCA, 1987-08, #### [facility] ([id number]) [address] [place] [address] 49791 #### 66352-6 #### [facility] ([id number]) [address], [address] [place] [address] Neutrophils/100 WBC (Bld) 66.7 % Normal [facility] Comment on above: Performed By: #### B MP, CBCA, 1987-08, #### [facility] ([id number]) [address] [place] [address] 50400 #### 52662-2 #### [facility] ([id number]) [address], [address] [place] [address] Platelet mean volume (Bld) [Entitic vol] 7.7 fL Normal 7-12 [facility] Comment on above: Performed By: #### B ALCON, CBCA, 1987-08, 70302-5 #### [facility] ([id number]) [address] [place] [address] 94556 #### 94720-9 #### [facility] ([id number]) [address] [facility], [address] [place] [address] Platelets (Bld) [#/Vol] 286 10*3/uL Normal 150-450 [facility] Comment on above: Performed By: #### B ALCON, CBCA, 1987-08, 53080-8 #### [facility] ([id number]) [address] [place] [address] 89247 #### 04511-6 #### [facility] ([id number]) [address], [address] [place] [address] RBC COUNT 4.46 X10E12/L Normal 4.10-5.70 [facility] Comment on above: Performed By: #### B ALCON, CBCA, 1987-08, 54849-7 #### [facility] ([id number]) [address] [place] [address] 53191 #### 61586-6 #### [facility] ([id number]) [address], [address] [place] [address] WBC (Bld) [#/Vol] 8.6 10*3/uL Normal 4.0-11.0 [facility] Comment on above: Performed By: #### B JAMES RONDON, 1987-08, 88669-6 #### [facility] ([id number]) [address] [place] [address] 16458 #### 04722-5 #### [facility] ([id number]) [address], [address] [place] [address] CREATININEon 12-16-2023 Creatinine [Mass/Vol] 3.32 mg/dL High 0.70-1.20 [facility] Comment on above: Result Comment: METH OD TRACEABLE TO IDMS STANDARD Performed By: #### B JAMES RONDON, 1987-08, #### [facility] ([id number]) [address] [place] [address] 93393 #### 10676-6 #### [facility] ([id number]) [address], [address] [place] [address] GFR/1.73 sq M.predicted among non-blacks MDRD (S/P/Bld) [Vol rate/Area] 20 mL/min/{1.73_m2} Low >59 [facility] Comment on above: Result Comment: Reported eGFR is based on the CKD-EPI 2020 equation that does not use a race coefficient. Performed By: #### B JAMES RONDON, 1987-08, 96753-7 #### [facility] ([id number]) [address] [place] [address] 24037 #### 24255-0 #### [facility] ([id number]) [address], [address] [place] [address] ELECTROLYTESon 12-16-2023 Anion gap [Moles/Vol] 8 mmol/L Normal 5-15 [facility] Comment on above: Performed By: #### B JAMES RONDON, 1987-08, 79173-4 #### [facility] ([id number]) [address] [place] [address] 99070 #### 57062-5 #### [facility] ([id number]) [address] [place] [address], [address] [place] [address] Chloride [Moles/Vol] 103 mmol/L Normal 98-109 [facility] Comment on above: Performed By: #### SEVEN Sanchez MPA, 1987-08, 96983-3 #### [facility] ([id number]) [address] [place] [address] 83302 #### 77787-7 #### [facility] ([id number]) [address] [place] [address], [address] [place] [address] CO2 [Moles/Vol] 18 mmol/L Low 22-32 [facility] Comment on above: Performed By: #### JAMES Sanchez MP, 1987-08, 67117-4 #### [facility] ([id number]) [address] [place] [address] 48073 #### 97180-7 #### [facility] ([id number]) [address] [place] [address], [address] [place] [address] Potassium [Moles/Vol] 4.5 mmol/L Normal 3.5-5.0 [facility] Comment on above: Performed By: #### JAMES Sanchez MP, 1987-08, 14500-6 #### [facility] ([id number]) [address] [place] [address] 31651 #### 95440-7 #### [facility] ([id number]) [address] [place] [address], [address] [place] [address] Sodium [Moles/Vol] 129 mmol/L Low 134-146 [facility] Comment on above: Performed By: #### SEVEN Sanchez MPA, 1987-08, 25818-1 #### [facility] ([id number]) [address] [place] [address] 90338 #### 26163-9 #### [facility] ([id number]) [address], [address] [address] BLOOD UREA NITROGENon 2023 Urea nitrogen [Mass/Vol] 41 mg/dL High 5-27 [facility] Comment on above: Performed By: #### C BCA, 3094-0, INSURANCE HEALTHCARE REPRESENTATIVE, ELEC #### [facility] ([id number]) [address], [address] [address] CBC AND AUTO DIFFon 11-19-19 ABSOLUTE BASOPHIL 0.2 X10E9/L Normal 0.0-0.2 [facility] Comment on above: Performed By: #### C BCA, 3094-0, INSURANCE HEALTHCARE REPRESENTATIVE, ELEC #### [facility] ([id number]) [address], [address] [address] Basophils/100 WBC (Bld) 1.9 % Normal [facility] Comment on above: Performed By: #### C BCA, 3094-0, INSURANCE HEALTHCARE REPRESENTATIVE, ELEC #### [facility] ([id number]) [address], [address] [address] KATHERINE 1+ Abnormal NONE [facility] Comment on above: Performed By: #### C BCA, 3094-0, INSURANCE HEALTHCARE REPRESENTATIVE, ELEC #### [facility] ([id number]) [address], [address] [address] Eosinophils (Bld) [#/Vol] 0.4 10*3/uL Normal 0.0-0.4 [facility] Comment on above: Performed By: #### C BCA, 3094-0, INSURANCE HEALTHCARE REPRESENTATIVE, ELEC #### [facility] ([id number]) [address] [address] Eosinophils/100 WBC (Bld) 3.8 % Normal [facility] Comment on above: Performed By: #### C BCA, 3094-0, INSURANCE HEALTHCARE REPRESENTATIVE, ELEC #### [facility] ([id number]) [address], [facility] [address] [place] [address] Erythrocyte distribution width (RBC) [Ratio] 14.4 % Normal 11.5-15.0 [facility] Comment on above: Performed By: #### C BCA, 3094-0, INSURANCE HEALTHCARE REPRESENTATIVE, ELEC #### [facility] ([id number]) [address], [facility] [address] [place] [address] Hematocrit (Bld) [Volume fraction] 40.3 % Normal 39-49 [facility] Comment on above: Performed By: #### C BCA, 3094-0, INSURANCE HEALTHCARE REPRESENTATIVE, ELEC #### [facility] ([id number]) [address] [address] [place] [address] Hemoglobin (Bld) [Mass/Vol] 13.4 g/dL Normal 13.0-17.0 [facility] Comment on above: Performed By: #### C BCA, 3094-0, INSURANCE HEALTHCARE REPRESENTATIVE, ELEC #### [facility] ([id number]) [address] [address] Lymphocytes (Bld) [#/Vol] 2.0 10*3/uL Normal 1.0-3.5 [facility] Comment on above: Performed By: #### C BCA, 3094-0, INSURANCE HEALTHCARE REPRESENTATIVE, ELEC #### [facility] ([id number]) [address], [address] [address] Lymphocytes/100 WBC (Bld) 21.7 % Normal [facility] Comment on above: Performed By: #### C BCA, 3094-0, INSURANCE HEALTHCARE REPRESENTATIVE, ELEC #### [facility] ([id number]) [address] [address] [place] [address] MCH (RBC) [Entitic mass] 29.6 pg Normal 27-34 [facility] Comment on above: Performed By: #### C BCA, 3094-0, INSURANCE HEALTHCARE REPRESENTATIVE, ELEC #### [facility] ([id number]) [address], [address] [place] [address] MCHC (RBC) [Mass/Vol] 33.4 g/dL Normal 32-36 [facility] Comment on above: Performed By: #### C IRENE, 3094-0, INSURANCE HEALTHCARE REPRESENTATIVE, ELEC #### [facility] ([id number]) [address], [address] [place] [address] MCV (RBC) [Entitic vol] 89 fL Normal 80-100 [facility] Comment on above: Performed By: #### C IRENE, 3094-0, INSURANCE HEALTHCARE REPRESENTATIVE, ELEC #### [facility] ([id number]) [address], [facility] [address] [place] [address] Monocytes (Bld) [#/Vol] 0.6 10*3/uL Normal 0-0.9 [facility] Comment on above: Performed By: #### C IRENE, 3094-0, INSURANCE HEALTHCARE REPRESENTATIVE, ELEC #### [facility] ([id number]) [address], [facility] [address] [place] [address] Monocytes/100 WBC (Bld) 6.6 % Normal [facility] Comment on above: Performed By: #### C IRENE, 3094-0, INSURANCE HEALTHCARE REPRESENTATIVE, ELEC #### [facility] ([id number]) [address], [facility] [address] [place] [address] Neutrophils (Bld) [#/Vol] 6.1 10*3/uL Normal 1.5-6.6 [facility] Comment on above: Performed By: #### C IRENE, 3094-0, INSURANCE HEALTHCARE REPRESENTATIVE, ELEC #### [facility] ([id number]) [address], [facility] [address] [place] [address] Platelet mean volume (Bld) [Entitic vol] 8.0 fL Normal 7-12 [facility] Comment on above: Performed By: #### Gabrielle BONILLA, 3094-0, INSURANCE HEALTHCARE REPRESENTATIVE, ELEC #### [facility] ([id number]) [address] [address] [place] [address] Platelets (Bld) [#/Vol] 253 10*3/uL Normal 150-450 [facility] Comment on above: Performed By: #### C BCA, 3094-0, INSURANCE HEALTHCARE REPRESENTATIVE, ELEC #### [facility] ([id number]) [address] [address] [place] [address] RBC COUNT 4.54 X10E12/L Normal 4.10-5.70 [facility] Comment on above: Performed By: #### C BCA, 3094-0, INSURANCE HEALTHCARE REPRESENTATIVE, ELEC #### [facility] ([id number]) [address] [address] SEG NEUTROPHIL 66.0 % Normal [facility] Comment on above: Performed By: #### C BCA, 3094-0, INSURANCE HEALTHCARE REPRESENTATIVE, ELEC #### [facility] ([id number]) [address] [address] WBC (Bld) [#/Vol] 9.3 10*3/uL Normal 4.0-11.0 [facility] Comment on above: Performed By: #### C BCA, 3094-0, INSURANCE HEALTHCARE REPRESENTATIVE, ELEC #### [facility] ([id number]) [address] [address] CREATININEon 11-19-2023 Creatinine [Mass/Vol] 3.18 mg/dL High 0.60-1.30 [facility] Comment on above: Result Comment: METH OD TRACEABLE TO IDMS STANDARD Performed By: #### C BCA, 3094-0, INSURANCE HEALTHCARE REPRESENTATIVE, ELEC #### [facility] ([id number]) [address] [address] GFR/1.73 sq M.predicted among non-blacks MDRD (S/P/Bld) [Vol rate/Area] 21 mL/min/{1.73_m2} Low >59 [facility] Comment on above: Result Comment: Reported eGFR is based on the CKD-EPI 2020 equation that does not use a race coefficient. Performed By: #### C BCA, 3094-0, INSURANCE HEALTHCARE REPRESENTATIVE, ELEC #### [facility] ([id number]) [address], [address] [place] [address] ELECTROLYTESon 11-19-2023 Anion gap [Moles/Vol] 9 mmol/L Normal 5-15 [facility] Comment on above: Performed By: #### C BCA, 3094-0, INSURANCE HEALTHCARE REPRESENTATIVE, ELEC #### [facility] ([id number]) [address], [address] [place] [address] Chloride [Moles/Vol] 100 mmol/L Normal 98-109 [facility] Comment on above: Performed By: #### C BCA, 3094-0, INSURANCE HEALTHCARE REPRESENTATIVE, ELEC #### [facility] ([id number]) [address] [place] [address] CO2 [Moles/Vol] 22 mmol/L Normal 22-32 [facility] Comment on above: Performed By: #### C BCA, 3094-0, INSURANCE HEALTHCARE REPRESENTATIVE, ELEC #### [facility] ([id number]) [address], [address] [place] [address] Potassium [Moles/Vol] 3.9 mmol/L Normal 3.5-5.0 [facility] Comment on above: Performed By: #### C BCA, 3094-0, INSURANCE HEALTHCARE REPRESENTATIVE, ELEC #### [facility] ([id number]) [address], [address] [place] [address] Sodium [Moles/Vol] 131 mmol/L Low 134-146 [facility] Comment on above: Performed By: #### C BCA, 3094-0, INSURANCE HEALTHCARE REPRESENTATIVE, ELEC #### [facility] ([id number]) [address], [address] [place] [address] BLOOD UREA NITROGENon 2023 Urea nitrogen [Mass/Vol] 35 mg/dL High 5-27 [facility] Comment on above: Performed By: #### B ALCON CBCA, 1987-08, #### [facility] ([id number]) [address] [place] [address] 82932 #### 64744-4 #### [facility] ([id number]) [address], [address] [place] [address] CALCIUMon 10-23-2023 Calcium [Mass/Vol] 8.1 mg/dL Low 8.5-10.5 [facility] Comment on above: Performed By: #### B ALCON CBCA, 1987-08, #### [facility] ([id number]) [address] [place] [address] 69958 #### 65277-3 #### [facility] ([id number]) [address] [facility], [address] [place] [address] CBC AND AUTO DIFFon 10-23-19 24 ABSOLUTE BASOPHIL 0.0 X10E9/L Normal 0.0-0.2 [facility] Comment on above: Performed By: #### B ALCON CBCA, 78008-8 #### [facility] ([id number]) [address] [place] [address] 62098 #### 72497-9 #### [facility] ([id number]) [address], [address] [place] [address] ABSOLUTE NEUTROPHIL 5.4 X10E9/L Normal 1.5-6.6 [facility] Comment on above: Performed By: #### B ALCON CBCA, 1987-08, 59395-2 #### [facility] ([id number]) [address] [place] [address] 28358 #### 65806-2 #### [facility] ([id number]) [address], [address] [place] [address] Basophils/100 WBC (Bld) 0.5 % Normal [facility] Comment on above: Performed By: #### B ALCON, CBCA, 1987-08, #### [facility] ([id number]) [address] [place] [address] 54161 #### 99779-9 #### [facility] ([id number]) [address] [facility], [address] [place] [address] Eosinophils (Bld) [#/Vol] 0.3 10*3/uL Normal 0.0-0.4 [facility] Comment on above: Performed By: #### B ALCON, CBCA, 1987-08, #### [facility] ([id number]) [address] [place] [address] 45193 #### 66488-2 #### [facility] ([id number]) [address] [facility], [address] [place] [address] Eosinophils/100 WBC (Bld) 3.2 % Normal [facility] Comment on above: Performed By: #### B ALCON, CBCA, 1987-08, #### [facility] ([id number]) [address] [place] [address] #### 96655-7 #### [facility] ([id number]) [address], [address] [place] [address] Erythrocyte distribution width (RBC) [Ratio] 14.4 % Normal 11.5-15.0 [facility] Comment on above: Performed By: #### B ALCON, CBCA, 1987-08, #### [facility] ([id number]) [address] [place] [address] #### 10794-0 #### [facility] ([id number]) [address], [address] [place] [address] Hematocrit (Bld) [Volume fraction] 39.7 % Normal 39-49 [facility] Comment on above: Performed By: #### B ALCON, CBCA, 1987-08, #### [facility] ([id number]) [address] [place] [address] 49548 #### 67529-1 #### [facility] ([id number]) [address], [address] [place] [address] Hemoglobin (Bld) [Mass/Vol] 13.1 g/dL Normal 13.0-17.0 [facility] Comment on above: Performed By: #### B ALCON, CBCA, 1987-08, #### [facility] ([id number]) [address] [place] [address] 07368 #### 60730-7 #### [facility] ([id number]) [address], [address] [place] [address] Lymphocytes (Bld) [#/Vol] 2.1 10*3/uL Normal 1.0-3.5 [facility] Comment on above: Performed By: #### B ALCON, CBCA, 1987-08, #### [facility] ([id number]) [address] [place] [address] 16412 #### 65950-0 #### [facility] ([id number]) [address], [address] [place] [address] Lymphocytes/100 WBC (Bld) 24.5 % Normal [facility] Comment on above: Performed By: #### Laura RONDON, CBCA, 1987-08, #### [facility] ([id number]) [address] [place] [address]29 #### 96139-2 #### [facility] ([id number]) [address], [address] [place] [address] MCH (RBC) [Entitic mass] 29.0 pg Normal 27-34 [facility] Comment on above: Performed By: #### Laura RONDON, CBCA, 1987-08, [id number] #### [facility] ([id number]) [address] [place] [address] 32077 #### 49065-6 #### [facility] ([id number]) [address] [facility], [address] [place] [address] MCHC (RBC) [Mass/Vol] 32.9 g/dL Normal 32-36 [facility] Comment on above: Performed By: #### Laura RONDON, CBCA, 1987-08, #### [facility] ([id number]) [address] [place] [address] 35500 #### 83743-6 #### [facility] ([id number]) [address] [facility], [address] [place] [address] MCV (RBC) [Entitic vol] 88 fL Normal 80-100 [facility] Comment on above: Performed By: #### Laura RONDON, CBCA, 1987-08, #### [facility] ([id number]) [address] [place] [address] 26105 #### 82239-5 #### [facility] ([id number]) [address] [facility], [address] [place] [address] Monocytes (Bld) [#/Vol] 0.8 10*3/uL Normal 0-0.9 [facility] Comment on above: Performed By: #### Laura RONDON, CBCA, 1987-08, #### [facility] ([id number]) [address] [place] [address] 96813 #### 78252-7 #### [facility] ([id number]) [address] [facility], [address] [place] [address] Monocytes/100 WBC (Bld) 9.2 % Normal [facility] Comment on above: Performed By: #### B MP, CBCA, 1987-08, 70150-4 #### [facility] ([id number]) [address] [place] [address] 02846 #### 94860-7 #### [facility] ([id number]) [address] [place] [address], [address] [place] [address] Neutrophils/100 WBC (Bld) 62.6 % Normal [facility] Comment on above: Performed By: #### Laura MP, CBCA, 1987-08, 62144-9 #### [facility] ([id number]) [address] [place] [address] 39074 #### 49589-5 #### [facility] ([id number]) [address] [place] [address], [address] [place] [address] Platelet mean volume (Bld) [Entitic vol] 8.6 fL Normal 7-12 [facility] Comment on above: Performed By: #### B MP, CBCA, 1987-08, 39976-6 #### [facility] ([id number]) [address] [place] [address] 55743 #### 07521-9 #### [facility] ([id number]) [address] [place] [address], [address] [place] [address] Platelets (Bld) [#/Vol] 247 10*3/uL Normal 150-450 [facility] Comment on above: Performed By: #### B MP, CBCA, 1987-08, 87336-9 #### [facility] ([id number]) [address] [place] [address] 08889 #### 72443-3 #### [facility] ([id number]) [address] [facility] [address] [place] [address] RBC COUNT 4.51 X10E12/L Normal 4.10-5.70 [facility] Comment on above: Performed By: #### JAMES Sanchez MP, 1987-08, 62809-3 #### [facility] ([id number]) [address] [place] [address] 15497 #### 76953-4 #### [facility] ([id number]) [address] [address] WBC (Bld) [#/Vol] 8.5 10*3/uL Normal 4.0-11.0 [facility] Comment on above: Performed By: #### JAMES Sanchez MP, 1987-08, 32279-4 #### [facility] ([id number]) [address] [place] [address] 85397 #### 33778-2 #### [facility] ([id number]) [address] [place] [address] CREATININEon 10-23-2023 Creatinine [Mass/Vol] 2.69 mg/dL High 0.70-1.20 [facility] Comment on above: Result Comment: METH OD TRACEABLE TO IDMS STANDARD Performed By: #### B JAMES RONDON, 1987-08, 06273-6 #### [facility] ([id number]) [address] [place] [address] 71920 #### 30449-7 #### [facility] ([id number]) [address] [facility], [address] [address] GFR/1.73 sq M.predicted among non-blacks MDRD (S/P/Bld) [Vol rate/Area] 26 mL/min/{1.73_m2} Low >59 [facility] Comment on above: Result Comment: Reported eGFR is based on the CKD-EPI 2020 equation that does not use a race coefficient. Performed By: #### B JAMES RONDON, 1987-08, 00760-7 #### [facility] ([id number]) [address] [place] [address] 61388 #### 66194-9 #### [facility] ([id number]) [address] [facility], [address] [place] [address] Calcium.ionized (Bld) [Moles /Vol]on 10-23-2023 PORTABLE ICA 4.8 mg/dL Normal 4.5-5.3 [facility] Comment on above: Performed By: #### B JAMES RONDON, 1987-08, #### [facility] ([id number]) [address] [place] [address] 44159 #### 73745-7 #### [facility] ([id number]) [address] [place] [address], [address] [place] [address] ELECTROLYTESon 10-23-2023 Anion gap [Moles/Vol] 5 mmol/L Normal 5-15 [facility] Comment on above: Performed By: #### JAMES Sanchez MP, 1987-08, #### [facility] ([id number]) [address] [place] [address] 14697 #### 65551-6 #### [facility] ([id number]) [id number], [address] [place] [address] Chloride [Moles/Vol] 108 mmol/L Normal 98-109 [facility] Comment on above: Performed By: #### JAMES Sanchez MP, 1987-08, 01987-9 #### [facility] ([id number]) [address] [place] [address] 01912 #### 48678-7 #### [facility] ([id number]) [address], [address] [place] [address] CO2 [Moles/Vol] 18 mmol/L Low 22-32 [facility] Comment on above: Performed By: #### B JAMES RONDON, 1987-08, 97846-9 #### [facility] ([id number]) [address] [place] [address] 29827 #### 19853-7 #### [facility] ([id number]) [address] [facility], [address] [place] [address] Potassium [Moles/Vol] 4.1 mmol/L Normal 3.5-5.0 [facility] Comment on above: Performed By: #### B JAMES RONDON, 1987-08, 32166-8 #### [facility] ([id number]) [address] [place] [address] 00190 #### 11072-7 #### [facility] ([id number]) [address] [facility], [address] [place] [address] Sodium [Moles/Vol] 131 mmol/L Low 134-146 [facility] Comment on above: Performed By: #### JAMES Sanchez MP, 1987-08, 74007-4 #### [facility] ([id number]) [address] [place] [address] 38709 #### 36622-6 #### [facility] ([id number]) [address] [facility], [address] [place] [address] ESR Photometric method (Bld) [Velocity]on 10-23-2023 ESR, ERYTHROCYTE SEDIMENTATION RATE 89 mm/h High 0-20 [facility] Comment on above: Performed By: #### JAMES Sanchez MP, 1987-08, 81539-8 #### [facility] ([id number]) [address] [place] [address] 69698 #### 12273-2 #### [facility] ([id number]) [address] [facility], [address] [place] [address] HGB A1C (GLYCO-HGB)on 2023 Glucose [Mass/Vol] 235 mg/dL Normal [facility] Comment on above: Performed By: #### B ALCON, CBCA, 1987-08, 92108-6 #### [facility] ([id number]) [address] [place] [address] 49291 #### 65071-0 #### [facility] ([id number]) [address] [address] HbA1c (Bld) [Mass fraction] 9.8 % High 4.4-5.6 [facility] Comment on above: Result Comment: NOTE ADA Guidelines Result HgbA1c Normal : less than 5.7 % Prediabetes : 5.7 % to 6.4 % Diabetes : > 6.4 % Use with caution in patients with abnormal hemoglobin variants as the half-life of red blood cells and in vivo glycation rates are affected. Performed By: #### B ALCON, CBCA, 1987-08, 21483-0 #### [facility] ([id number]) [address] [place] [address] 92099 #### 17579-8 #### [facility] ([id number]) [address] [facility], [address] [place] [address] LIVER PANELon 10-23-2023 Albumin [Mass/Vol] 2.8 g/dL Low 3.2-5.3 [facility] Comment on above: Performed By: #### B MP, CBCA, 1987-08, #### [facility] ([id number]) [address] [place] [address] 31992 #### 56979-5 #### [facility] ([id number]) [address] [facility], [address] [place] [address] ALP [Catalytic activity/Vol] 86 U/L Normal 39-130 [facility] Comment on above: Performed By: #### Laura RONDON CBCA, 1987-08, 95932-6 #### [facility] ([id number]) [address] [place] [address] 47639 #### 72909-1 #### [facility] ([id number]) [address] [facility], [address] [place] [address] ALT [Catalytic activity/Vol] 19 U/L Normal 0-40 [facility] Comment on above: Performed By: #### Laura RONDON CBCA, 1987-08, 68997-0 #### [facility] ([id number]) [address] [place] [address] 70097 #### 42508-9 #### [facility] ([id number]) [address] [facility], [address] [place] [address] AST [Catalytic activity/Vol] 15 U/L Normal 0-41 [facility] Comment on above: Performed By: #### Laura RONDON CBCA, 1987-08, 60860-5 #### [facility] ([id number]) [address] [place] [address] 29767 #### 68139-8 #### [facility] ([id number]) [address] [facility], [address] [place] [address] Bilirubin [Mass/Vol] 0.5 mg/dL Normal 0.3-1.2 [facility] Comment on above: Performed By: #### Laura RONDON CBCA, 1987-08, 76867-6 #### [facility] ([id number]) [address] [place] [address] 19648 #### 97858-6 #### [facility] ([id number]) [address] [facility], [address] [place] [address] Bilirubin.indirect [Mass/Vol] mg/dL Normal 0.0-0.4 [facility] Comment on above: Performed By: #### B SEVEN RONDONA, 1987-08, 86609-3 #### [facility] ([id number]) [address] [place] [address] 99973 #### 77890-2 #### [facility] ([id number]) [address] [facility], [address] [place] [address] Protein [Mass/Vol] 6.4 g/dL Normal 6.0-8.0 [facility] Comment on above: Performed By: #### B ALCON CBCA, 1987-08, 41813-2 #### [facility] ([id number]) [address] [place] [address] 62576 #### 90480-8 #### [facility] ([id number]) [address] [facility], [address] [place] [address] Lipid 1996 panelon 4 Cholesterol [Mass/Vol] 135 mg/dL Low 150-200 [facility] Comment on above: Performed By: #### Laura RONDON CBCA, 1987-08, 07761-3 #### [facility] ([id number]) [address] [place] [address] 86503 #### 79098-7 #### [facility] ([id number]) [address] [facility], [address] [place] [address] Cholesterol in HDL [Mass/Vol] 40 mg/dL Normal >39 [facility] Comment on above: Result Comment: HDL <40 mg/dL - High Risk HDL > or = 40mg/dL- Desirable HDL >60 mg/dL - Negative Risk Performed By: #### JAMES Sanchez MP, 1987-08, 36794-8 #### [facility] ([id number]) [address] [place] [address] 96908 #### 41221-2 #### [facility] ([id number]) [address] [facility], [address] [place] [address] Cholesterol in LDL [Mass/Vol] 57 mg/dL Normal <130 [facility] Comment on above: Result Comment: LDL <100 mg/dL - Desirable LDL >160 mg/dL - High Risk Performed By: #### JAMES Sanchez MP, 1987-08, 19387-0 #### [facility] ([id number]) [address] [place] [address] 37603 #### 71384-6 #### [facility] ([id number]) [address] [facility], [address] [place] [address] Cholesterol in VLDL [Mass/Vol] 38 mg/dL High 0-30 [facility] Comment on above: Performed By: #### JAMES Sanchez MP, 1987-08, 08273-4 #### [facility] ([id number]) [address] [place] [address] 22770 #### 98736-6 #### [facility] ([id number]) [address] [facility], [address] [place] [address] CHOLESTEROL:HDL 3.4 Normal 1.0-5.0 [facility] Comment on above: Performed By: #### JAMES Sanchez MP, 76958-0 #### [facility] ([id number]) [address] [place] [address] #### 59727-8 #### [facility] ([id number]) [address] [place] [address], [address] [place] [address] Triglyceride [Mass/Vol] 192 mg/dL High 27-150 [facility] Comment on above: Performed By: #### B ALCON CBCA, 1987-08, 90602-6 #### [facility] ([id number]) [address] [place] [address] 36030 #### 80228-6 #### [facility] ([id number]) [address] [place] [address], [address] [place] [address] MAGNESIUMon 10-23-2023 Magnesium [Mass/Vol] 2.1 mg/dL Normal 1.8-2.6 [facility] Comment on above: Performed By: #### B ALCON CBCA, 1987-08, 24331-1 #### [facility] ([id number]) [address] [place] [address] 91173 #### 06726-4 #### [facility] ([id number]) [address] [place] [address], [facility] [address] [place] [address] Natriuretic peptide.B prohor adrianne N-Terminal IA [Mass/Vol]on 10-23-2023 Natriuretic peptide B (Bld) [Mass/Vol] 1528 pg/mL High <=88 [facility] Comment on above: Result Comment: NOTE [...] absence of renal failure. Test Performed by: [address] [address] Client Services Coordinator: Brittani Nieves Ph.D.; CLIA# [id number] Performed By: #### B JAMES RONDON, 1987-08, 58552-8 #### [facility] ([id number]) [address] [place] [address] 39549 #### 31308-1 #### [facility] ([id number]) [address] [facility], [address] [place] [address] Prostate specific Ag [Mass/V ol]on 10-23-2023 PSA SCREEN 1.65 ng/mL Normal 0.00-4.00 [facility] Comment on above: Result Comment: The method used for this test is [employer] DXI chemiluminescent immunoassay. Values obtained by different assay methods cannot be used interchangeably. Performed By: #### B JAMES RONDON, 1987-08, #### [facility] ([id number]) [address] [place] [address] 88629 #### 64661-5 #### [facility] ([id number]) [address] [facility], [address] [place] [address] Vitamin D+Metabolites [Mass/ Vol]on 10-23-2023 VITAMIN D 25 HYD TOT 8.3 ng/mL Low 30-100 [facility] Comment on above: Result Comment: Vitamin D status 25 [place] Vitamin D Deficiency <20 ng/mL Insufficiency 20-29 ng/mL Sufficiency 30-100 ng/mL Toxicity >100 ng/mL NOTE: A pediatric reference range has not been established by the it technical specialist of this kit. The [place] [employer] recommends a Vitamin D level of = or >20ng/mL in infants and children. Performed By: #### B JAMES RONDON, 1987-08, 31723-7 #### [facility] ([id number]) [address] [place] [address] 38017 #### 60003-8 #### [facility] ([id number]) [address], [address] [place] [address] BLOOD UREA NITROGENon 2023 Urea nitrogen [Mass/Vol] 33 mg/dL High 5-27 [facility] Comment on above: Performed By: #### B JAMES RONDON, 1987-08, 34683-4 #### [facility] ([id number]) [address] [place] [address] 44274 #### 79276-5 #### [facility] ([id number]) [address], [address] [place] [address] CREATININEon 09-03-2023 Creatinine [Mass/Vol] 2.42 mg/dL High 0.70-1.20 [facility] Comment on above: Result Comment: METH OD TRACEABLE TO IDMS STANDARD Performed By: #### B JAMES RONDON, 1987-08, 66152-4 #### [facility] ([id number]) [address] [place] [address] 91409 #### 72327-2 #### [facility] ([id number]) [address] [address] GFR/1.73 sq M.predicted among non-blacks MDRD (S/P/Bld) [Vol rate/Area] 29 mL/min/{1.73_m2} Low >59 [facility] Comment on above: Result Comment: Reported eGFR is based on the CKD-EPI 2020 equation that does not use a race coefficient. Performed By: #### B JAMES RONDON, 1987-08, 23316-8 #### [facility] ([id number]) [address] [place] [address] 38403 #### 72967-6 #### [facility] ([id number]) [address], [address] [place] [address] ELECTROLYTESon 09-03-2023 Anion gap [Moles/Vol] 7 mmol/L Normal 5-15 [facility] Comment on above: Performed By: #### Laura RONDON CBCA, 1987-08, 18750-9 #### [facility] ([id number]) [address] [place] [address] 31761 #### 56782-2 #### [facility] ([id number]) [address], [address] [place] [address] Chloride [Moles/Vol] 106 mmol/L Normal 98-109 [facility] Comment on above: Performed By: #### SEVEN Sanchez MPA, 1987-08, 41896-4 #### [facility] ([id number]) [address] [place] [address] 33237 #### 12917-4 #### [facility] ([id number]) [address], [address] [place] [address] CO2 [Moles/Vol] 21 mmol/L Low 22-32 [facility] Comment on above: Performed By: #### Laura RONDON CBCA, 1987-08, 54820-0 #### [facility] ([id number]) [address] [place] [address] 64214 #### 87731-2 #### [facility] ([id number]) [address], [address] [place] [address] Potassium [Moles/Vol] 4.2 mmol/L Normal 3.5-5.0 [facility] Comment on above: Performed By: #### SEVEN Sanchez MPA, 1987-08, 29087-6 #### [facility] ([id number]) [address] [place] [address] 47661 #### 08547-6 #### [facility] ([id number]) [address], [address] [place] [address] Sodium [Moles/Vol] 134 mmol/L Normal 134-146 [facility] Comment on above: Performed By: #### JAMES Sanchez MP, 1987-08, 66579-1 #### [facility] ([id number]) [address] [place] [address] 56439 #### 52085-8 #### [facility] ([id number]) [address] [place] [address], [address] [place] [address] Natriuretic peptide.B prohor adrianne N-Terminal [Mass/Vol]on 09-03-2023 NT Pro BNP See Below Normal [facility] Comment on above: Result Comment: NOTE TEST RESULT FLAG UNIT REF.RANGE ----- PRO B Natr Peptide 933 H pg/mL <125 Test Performed By: [facility] [address] [place] [address] Director Translational: Charlotte Hart III #[id number] Performed By: #### JAMES Sanchez MP, 1987-08, 75666-9 #### [facility] ([id number]) [address] [place] [address] 84042 #### 85071-5 #### [facility] ([id number]) [address] [place] [address], [address] [place] [address] BLOOD UREA NITROGENon 2023 Urea nitrogen [Mass/Vol] 38 mg/dL High 5-27 [facility] Comment on above: Performed By: #### JAMES Sanchez MP, 1987-08, 87088-1 #### [facility] ([id number]) [address] [place] [address] 00462 #### 68155-8 #### [facility] ([id number]) [address], [address] [place] [address] CREATININEon 07-31-2023 Creatinine [Mass/Vol] 2.76 mg/dL High 0.70-1.20 [facility] Comment on above: Result Comment: METH OD TRACEABLE TO IDMS STANDARD Performed By: #### B JAMES RONDON, 1987-08, 94913-6 #### [facility] ([id number]) [address] [place] [address] 18704 #### 03549-7 #### [facility] ([id number]) [address] [facility], [address] [place] [address] GFR/1.73 sq M.predicted among non-blacks MDRD (S/P/Bld) [Vol rate/Area] 25 mL/min/{1.73_m2} Low >59 [facility] Comment on above: Result Comment: Reported eGFR is based on the CKD-EPI 2020 equation that does not use a race coefficient. Performed By: #### B JAMES RONDON, 1987-08, 09022-6 #### [facility] ([id number]) [address] [place] [address] 14288 #### 38113-8 #### [facility] ([id number]) [address], [address] [place] [address] ELECTROLYTESon 07-31-2023 Anion gap [Moles/Vol] 7 mmol/L Normal 5-15 [facility] Comment on above: Performed By: #### B JAMES RONDON, 1987-08, 85438-1 #### [facility] ([id number]) [address] [place] [address] 46731 #### 74211-2 #### [facility] ([id number]) [address], [address] [place] [address] Chloride [Moles/Vol] 104 mmol/L Normal 98-109 [facility] Comment on above: Performed By: #### B ALCON, CBCA, 1987-08, 77772-3 #### [facility] ([id number]) [address] [place] [address] 07796 #### 35017-8 #### [facility] ([id number]) [address] [place] [address] CO2 [Moles/Vol] 21 mmol/L Low 22-32 [facility] Comment on above: Performed By: #### B ALCON, CBCA, 1987-08, 09029-8 #### [facility] ([id number]) [address] [place] [address] 12898 #### 91964-7 #### [facility] ([id number]) [address], [address] [place] [address] Potassium [Moles/Vol] 4.3 mmol/L Normal 3.5-5.0 [facility] Comment on above: Performed By: #### Laura RONDON CBCA, 1987-08, 64145-2 #### [facility] ([id number]) [address] [place] [address] 50489 #### 79401-2 #### [facility] ([id number]) [address], [address] [place] [address] Sodium [Moles/Vol] 132 mmol/L Low 134-146 [facility] Comment on above: Performed By: #### Laura RONDON CBCA, 1987-08, 56360-8 #### [facility] ([id number]) [address] [place] [address] 71784 #### 46208-0 #### [facility] ([id number]) [address] [place] [address] Natriuretic peptide.B melony silver N-Terminal [Mass/Vol]on 07-31-2023 NT Pro BNP See Below Normal [facility] Comment on above: Result Comment: NOTE TEST RESULT FLAG UNIT REF.RANGE ----- PRO B Natr Peptide 1296 H pg/mL <125 Test Performed By: [facility] [address] [place] [address] Director Translational: Tyler Valle III, M.D. CLIA #[id number] Performed By: #### B JAMES RONDON, 1987-08, 13961-8 #### [facility] ([id number]) [address] [place] [address] #### 20031-0 #### [facility] ([id number]) [address] [place] [address], [place] [address] BLOOD UREA NITROGENon 2023 Urea nitrogen [Mass/Vol] 34 mg/dL High 5-27 [facility] Comment on above: Performed By: #### JAMES Sanchez MP, 1987-08, 08726-8 #### [facility] ([id number]) [address] [place] [address] 52294 #### 51856-9 #### [facility] ([id number]) [address] [place] [address], [facility] [address] [place] [address] CREATININEon 07-02-2023 Creatinine [Mass/Vol] 3.13 mg/dL High 0.70-1.20 [facility] Comment on above: Result Comment: METH OD TRACEABLE TO IDMS STANDARD Performed By: #### B JAMES RONDON, 94554-6 #### [facility] ([id number]) [address] [place] [address] 28396 #### 88435-9 #### [facility] ([id number]) [address], [address] [place] [address] GFR/1.73 sq M.predicted among non-blacks MDRD (S/P/Bld) [Vol rate/Area] 22 mL/min/{1.73_m2} Low >59 [facility] Comment on above: Result Comment: Reported eGFR is based on the CKD-EPI 2020 equation that does not use a race coefficient. Performed By: #### B JAMES RONDON, 1987-08, 10509-2 #### [facility] ([id number]) [address] [place] [address] #### 94479-8 #### [facility] ([id number]) [address], [address] [place] [address] ELECTROLYTESon 07-02-2023 Anion gap [Moles/Vol] 8 mmol/L Normal 5-15 [facility] Comment on above: Performed By: #### B JAMES RONDON, 1987-08, 31518-2 #### [facility] ([id number]) [address] [place] [id number] #### 14551-0 #### [facility] ([id number]) [address], [address] [place] [address] Chloride [Moles/Vol] 106 mmol/L Normal 98-109 [facility] Comment on above: Performed By: #### B JAMES RONDON, 1987-08, 99267-8 #### [facility] ([id number]) [address] [place] [address] #### 97400-8 #### [facility] ([id number]) [address], [address] [place] [address] CO2 [Moles/Vol] 20 mmol/L Low 22-32 [facility] Comment on above: Performed By: #### B JAMES RONDON, 1987-08, 89483-4 #### [facility] ([id number]) [address] [place] [address] #### 46177-5 #### [facility] ([id number]) [address] [facility] [address], [address] [place] [address] Potassium [Moles/Vol] 4.7 mmol/L Normal 3.5-5.0 [facility] Comment on above: Performed By: #### B [facility], [facility], 1987-08, 19439-1 #### [facility] ([id number]) [address] [place], [place] [address] 99665 #### 51280-3 #### [facility] ([id number]) [address], [address] [place] [address] Sodium [Moles/Vol] 134 mmol/L Normal 134-146 [facility] Comment on above: Performed By: #### B ALCON, CBCA, 1987-08, 12856-6 #### [facility] ([id number]) [address] [place] [address] 15388 #### 72968-4 #### [facility] ([id number]) [address] [facility], [address] [place] [address] Natriuretic peptide.B prohor adrianne N-Terminal [Mass/Vol]on 07-02-2023 NT Pro BNP See Below Normal [facility] Comment on above: Result Comment: NOTE TEST RESULT FLAG UNIT REF.RANGE ----- PRO B Natr Peptide 413 H pg/mL <125 Test Performed By: [facility] [address] [place] [address] Director Translational: Tyler Valle III, M.D. IA #[id number] Performed By: #### B JAMES RONDON, 1987-08, 03829-8 #### [facility] ([id number]) [address] [place] [address] 50103 #### 28499-0 #### [facility] ([id number]) [address] [facility], [address] [place] [address] BLOOD UREA NITROGENon 2023 Urea nitrogen [Mass/Vol] 33 mg/dL High 5-27 [facility] Comment on above: Performed By: #### B JAMES RONDON, 1987-08, 70096-6 #### [facility] ([id number]) [address] [place] [address] 75970 #### 49059-8 #### [facility] ([id number]) [address], [address] [place] [address] CREATININEon 06-04-2023 Creatinine [Mass/Vol] 2.37 mg/dL High 0.70-1.20 [facility] Comment on above: Result Comment: METH OD TRACEABLE TO IDMS STANDARD Performed By: #### JAMES Sanchez MP, 1987-08, 76484-9 #### [facility] ([id number]) [address] [place] [address] 70245 #### 04065-7 #### [facility] ([id number]) [address], [address] [place] [address] GFR/1.73 sq M.predicted among non-blacks MDRD (S/P/Bld) [Vol rate/Area] 30 mL/min/{1.73_m2} Low >59 [facility] Comment on above: Result Comment: Reported eGFR is based on the CKD-EPI 2020 equation that does not use a race coefficient. Performed By: #### JAMES Sanchez MP, 1987-08, 98847-5 #### [facility] ([id number]) [address] [place] [address] 13932 #### 95946-6 #### [facility] ([id number]) [address], [address] [place] [address] ELECTROLYTESon 06-04-2023 Anion gap [Moles/Vol] 7 mmol/L Normal 5-15 [facility] Comment on above: Performed By: #### Laura RONDON CBCA, 1987-08, 79410-0 #### [facility] ([id number]) [address] [place] [address] 73912 #### 21844-5 #### [facility] ([id number]) [address] [facility], [address] [place] [address] Chloride [Moles/Vol] 106 mmol/L Normal 98-109 [facility] Comment on above: Performed By: #### Laura RONDON CBCA, 1987-08, 72815-7 #### [facility] ([id number]) [address] [place] [address] 46093 #### 55860-9 #### [facility] ([id number]) [address], [address] [place] [address] CO2 [Moles/Vol] 20 mmol/L Low 22-32 [facility] Comment on above: Performed By: #### Laura RONDON CBCA, 1987-08, 50262-5 #### [facility] ([id number]) [address] [place] [address] 87420 #### 61619-5 #### [facility] ([id number]) [address], [address] [place] [address] Potassium [Moles/Vol] 4.6 mmol/L Normal 3.5-5.0 [facility] Comment on above: Performed By: #### Laura RONDON CBCA, 1987-08, #### [facility] ([id number]) [address] [place] [address] 46342 #### 68591-7 #### [facility] ([id number]) [address] [place] [address], [address] [place] [address] Sodium [Moles/Vol] 133 mmol/L Low 134-146 [facility] Comment on above: Performed By: #### Laura RONDON CBCA, 1987-08, 42693-2 #### [facility] ([id number]) [address] [place] [address] 68731 #### 12205-5 #### [facility] ([id number]) [address] [place] [address], [address] [address] Natriuretic peptide.B prohor adrianne N-Terminal [Mass/Vol]on 06-04-2023 NT Pro BNP See Below Normal [facility] Comment on above: Result Comment: NOTE TEST RESULT FLAG UNIT REF.RANGE ----- PRO B Natr Peptide 526 H pg/mL <125 Test Performed By: [place] [address] Director Translational: Charlotte Hart III #[id number] Performed By: #### Laura RONDON CBCA, 1987-08, 59794-7 #### [facility] ([id number]) [address] [place] [address] 27679 #### 61542-4 #### [facility] ([id number]) [address] [place] [address], [address] [place] [address] Cult,Urineon 06-03-2023 Cult,Urine Specimen Description .VOIDED URINE [...] Tobramycin 4 SUSCEPTIBLE Trimethoprim/Sulfa >=320 RESISTANT Resistant [facility] Comment on above: Performed By: #### U RC #### [facility] [address] [place] [address] Client Services Coordinator: Griffin Carrion MD [facility] [address] [place] [address] [place] [address] Client Services Coordinator: Jameson Aaron MD UA w/Reflex Cultureon 2023 Bilirubin, SemiQt,Ur Negative Normal NEG [facility] Comment on above: Performed By: #### U AX, UMICAO #### [address] [place] [address] Client Services Coordinator: Jameson Aaron MD Blood, Urine TRACE Abnormal NEG [facility] Comment on above: Performed By: #### U AX, UMICAO #### [facility] [address] [place] [address] Client Services Coordinator: Jameson Aaron MD Clarity (U) SLIGHTLY CLOUDY Abnormal CLEAR [facility] Comment on above: Performed By: #### U AX, UMICAO #### [facility] [address] [place] [address] [place] [address] Client Services Coordinator: Jameson Aaron MD Color (U) Yellow Normal YEL [facility] Comment on above: Performed By: #### U AX, UMICAO #### [facility] [address] [place], [place] 3982183 Client Services Coordinator: Jameson Aaron MD Glucose Ql (U) 3+ mg/dL Abnormal NEG [facility] Comment on above: Performed By: #### U AX, UMICAO #### [facility] [address] [place], [place] [phone] Client Services Coordinator: Jameson Aaron MD Ketones Ql (U) Negative Normal NEG [facility] Comment on above: Performed By: #### U AX, UMICAO #### [facility] [address] [place], [place] 8235483 Client Services Coordinator: Jameson Aaron MD Leukocyte esterase Test strip Ql (U) TRACE Abnormal NEG [facility] Comment on above: Performed By: #### U AX, UMICAO #### [address] [place], [place] 8[address]83 Client Services Coordinator: Jameson Aaron MD Nitrite,Ur Negative Normal NEG [facility] Comment on above: Performed By: #### U AX, UMICAO #### [address] [place], [place] [id number] Client Services Coordinator: Jameson Aaron MD PH,Ur 5.5 Normal 5.0-9.0 [facility] Comment on above: Performed By: #### U AX, UMICAO #### [facility] [address] [place] [address] [place] [address] Client Services Coordinator: Jameson Aaron MD Protein Ql (U) 2+ mg/dL Abnormal NEG [facility] Comment on above: Performed By: #### U AX, UMICAO #### [facility] [address] [place], [place] 0387483 Client Services Coordinator: Jameson Aaron MD Spec. [place],Ur 1.025 High 1.010-1.020 [facility] Comment on above: Performed By: #### U AX, UMICAO #### [facility] [address] [place] 6347383 Client Services Coordinator: Jameson Aaron MD Urobilinogen,Ur Normal Normal 0.0-1.0 [facility] Comment on above: Performed By: #### U AX, UMICAO #### [facility] [address] [place], [place] 4368283 Client Services Coordinator: Jameson Aaron MD Urinalysis,Microon 4 Bacteria 2+ Abnormal NONE [facility] Comment on above: Performed By: #### U AX, UMICAO #### [facility] [address] [place], [place] 3879983 Client Services Coordinator: Jameson Aaron MD Epithelial cells LM Ql (Urine sed) 0 TO 2 Normal 0-[address] [place] [address] Comment on above: Performed By: #### U AX, UMICAO #### [facility] [address] [place], [place] 398[address]83 Client Services Coordinator: Jameson Aaron MD Epithelial, Renal 0 TO 2 Normal 0 [facility] Comment on above: Performed By: #### U AX, UMICAO #### [facility] [address] [place], [place] 9488383 Client Services Coordinator: Jameson Aaron MD Urine RBC's 0 TO 2 Normal 0-2 [facility] Comment on above: Performed By: #### U AX, UMICAO #### [facility] [address] [place], [facility] Client Services Coordinator: Jameson Aaron MD Urine WBC's 10 TO 20 Normal 0-5 [facility] Comment on above: Performed By: #### U AX, UMICAO #### [facility] [address] [place], [place] 983[address]83 Client Services Coordinator: Jameson Aaron MD Yeast PRESENCE NOTED Abnormal [facility] Comment on above: Performed By: #### U AX, UMICAO #### [facility] [address] [place] [address] Client Services Coordinator: Jameson Aaron MD BLOOD UREA NITROGENon 2023 Urea nitrogen [Mass/Vol] 44 mg/dL High 5-27 [facility] Comment on above: Performed By: #### E LEC, 3094-0, INSURANCE HEALTHCARE REPRESENTATIVE, 51320-0 #### [facility] ([id number]) [address] [place] [address] 03237 #### 58876-0, HA1C #### [facility] ([id number]) [address], [address] [place] [address] CREATININEon 05-06-2023 Creatinine [Mass/Vol] 2.71 mg/dL High 0.70-1.20 [facility] Comment on above: Result Comment: METH OD TRACEABLE TO IDMS STANDARD Performed By: #### E LEC, 3094-0, INSURANCE HEALTHCARE REPRESENTATIVE, 17238-5 #### [facility] ([id number]) [address] [place] [address] 98596 #### 59040-5, HA1C #### [facility] ([id number]) [address], [address] [address] GFR/1.73 sq M.predicted among non-blacks MDRD (S/P/Bld) [Vol rate/Area] 26 mL/min/{1.73_m2} Low >59 [facility] Comment on above: Result Comment: Reported eGFR is based on the CKD-EPI 2020 equation that does not use a race coefficient. Performed By: #### E LEC, 3094-0, INSURANCE HEALTHCARE REPRESENTATIVE, 06498-7 #### [facility] ([id number]) [address] [place] [address] 00478 #### 52204-6, HA1C #### [facility] ([id number]) [address] [facility], [address] [place] [address] ELECTROLYTESon 05-06-2023 Anion gap [Moles/Vol] 11 mmol/L Normal 5-15 [facility] Comment on above: Performed By: #### E LEC, 3094-0, INSURANCE HEALTHCARE REPRESENTATIVE, 75413-4 #### [facility] ([id number]) [address] [place] [address] 14193 #### 23060-5, HA1C #### [facility] ([id number]) [address], [address] [place] [address] Chloride [Moles/Vol] 101 mmol/L Normal 98-109 [facility] Comment on above: Performed By: #### E LEC, 3094-0, INSURANCE HEALTHCARE REPRESENTATIVE, 84477-5 #### [facility] ([id number]) [address] [place] [address] 04971 #### 76763-9, HA1C #### [facility] ([id number]) [address] [place] [address] CO2 [Moles/Vol] 18 mmol/L Low 22-32 [facility] Comment on above: Performed By: #### E LEC, 3094-0, INSURANCE HEALTHCARE REPRESENTATIVE, 39158-6 #### [facility] ([id number]) [address] [place] [address] 56949 #### 22135-4, HA1C #### [facility] ([id number]) [address], [address] [place] [address] Potassium [Moles/Vol] 4.4 mmol/L Normal 3.5-5.0 [facility] Comment on above: Performed By: #### E LEC, 3094-0, INSURANCE HEALTHCARE REPRESENTATIVE, 46069-4 #### [facility] ([id number]) [address] [place] [address] 95422 #### 85144-0, HA1C #### [facility] ([id number]) [address] [place] [address] Sodium [Moles/Vol] 130 mmol/L Low 134-146 [facility] Comment on above: Performed By: #### Tiki LEC, 3094-0, INSURANCE HEALTHCARE REPRESENTATIVE, 71617-4 #### [facility] ([id number]) [address] [place] [address] #### 57207-0, HA1C #### [facility] ([id number]) [address], [facility] [address] [place] [address] HGB A1C (GLYCO-HGB)on 2023 Glucose [Mass/Vol] 260 mg/dL Normal [facility] Comment on above: Performed By: #### Laura RONDON, CBCA, 1987-08, 91838-6 #### [facility] ([id number]) [address] [place] [address] 89550 #### 98962-1 #### [facility] ([id number]) [address] [place] [address], [facility] [address] [place] [address] HbA1c (Bld) [Mass fraction] 10.7 % High 4.4-5.6 [facility] Comment on above: Result Comment: NOTE ADA Guidelines Result HgbA1c Normal : less than 5.7 % Prediabetes : 5.7 % to 6.4 % Diabetes : > 6.4 % Use with caution in patients with abnormal hemoglobin variants as the half-life of red blood cells and in vivo glycation rates are affected. Performed By: #### Laura MP, CBCA, 1987-08, 20775-0 #### [facility] ([id number]) [address] [place] [address] 56844 #### 10992-9 #### [facility] ([id number]) [address] [facility], [facility] [address] [place] [address] Lipid 1996 panelon 4 Cholesterol [Mass/Vol] 205 mg/dL High 150-200 [facility] Comment on above: Performed By: #### Tiki LEC, 3094-0, INSURANCE HEALTHCARE REPRESENTATIVE, 39621-4 #### [facility] ([id number]) [address] [place] [address] 49684 #### 87259-3, HA1C #### [facility] ([id number]) [address], [address] [place] [address] Cholesterol in HDL [Mass/Vol] 35 mg/dL Low >39 [facility] Comment on above: Result Comment: HDL <40 mg/dL - High Risk HDL > or = 40mg/dL- Desirable HDL >60 mg/dL - Negative Risk Performed By: #### Tiki LEC, 3094-0, INSURANCE HEALTHCARE REPRESENTATIVE, 99521-7 #### [facility] ([id number]) [address] [place] [address] 18313 #### 39781-3, HA1C #### [facility] ([id number]) [address] [facility], [address] [place] [address] Cholesterol in LDL [Mass/Vol] 120 mg/dL Normal <130 [facility] Comment on above: Result Comment: LDL <100 mg/dL - Desirable LDL >160 mg/dL - High Risk Performed By: #### Tiki LEC, 3094-0, INSURANCE HEALTHCARE REPRESENTATIVE, 27152-6 #### [facility] ([id number]) [address] [place] [address] 62035 #### 76227-5, HA1C #### [facility] ([id number]) [address] [place] [address], [address] [place] [address] Cholesterol in VLDL [Mass/Vol] 50 mg/dL High 0-30 [facility] Comment on above: Performed By: #### E LEC, 3094-0, INSURANCE HEALTHCARE REPRESENTATIVE, 00082-5 #### [facility] ([id number]) [address] [place] [address] 74768 #### 67322-6, HA1C #### [facility] ([id number]) [address] [place] [address], [address] [place] [address] CHOLESTEROL:HDL 5.9 High 1.0-5.0 [facility] Comment on above: Performed By: #### E LEC, 3094-0, INSURANCE HEALTHCARE REPRESENTATIVE, 67090-9 #### [facility] ([id number]) [address] [place] [address] 72061 #### 86432-3, HA1C #### [facility] ([id number]) [address] [place] [address], [address] [place] [address] Triglyceride [Mass/Vol] 248 mg/dL High 27-150 [facility] Comment on above: Performed By: #### Tiki LEC, 3094-0, INSURANCE HEALTHCARE REPRESENTATIVE, 19692-9 #### [facility] ([id number]) [address] [place] [address] 23443 #### 21174-1, HA1C #### [facility] ([id number]) [address] [place] [address], [address] [place] [address] MICROALBUMIN - ALBUMIN:CREAT ININE URINE RATIOon 05-06-2023 ALB/CREAT RATIO 2747.0 mg/g creat High 0.0-30.0 [facility] Comment on above: Performed By: #### B MP, CBCA, 1987-08, 34758-6 #### [facility] ([id number]) [address] [place] [address] 21718 #### 71091-8 #### [facility] ([id number]) [address] [facility], [address] [place] [address] Albumin DL <= 20 mg/L (U) [Mass/Vol] 195.2 mg/dL High 0.0-1.9 [facility] Comment on above: Performed By: #### JAMES Sanchez MP, 1987-08, 28942-3 #### [facility] ([id number]) [address] [place] [address] 75155 #### 78046-1 #### [facility] ([id number]) [address], [address] [place] [address] URINE CREAT 71.06 mg/dL Normal [facility] Comment on above: Performed By: #### JAMES Sanchez MP, 1987-08, 71841-3 #### [facility] ([id number]) [address] [place] [address] 42367 #### 90909-6 #### [facility] ([id number]) [address] [facility], [address] [place] [address] Natriuretic peptide.B prohor adrianne N-Terminal [Mass/Vol]on 05-06-2023 NT Pro BNP See Below Normal [facility] Comment on above: Result Comment: NOTE TEST RESULT FLAG UNIT REF.RANGE ----- PRO B Natr Peptide 314 H pg/mL <125 Test Performed By: [facility] [address] [place] [address] Director Translational: Charlotte Hart III #[id number] Performed By: #### JAMES Sanchez MP, 1987-08, 09938-3 #### [facility] ([id number]) [address] [place] [address] 04885 #### 91220-0 #### [facility] ([id number]) [address] [place] [address], [address] [place] [address] URINALYSISon 05-06-2023 Bilirubin Ql (U) Negative Normal NEG [facility] Comment on above: Performed By: #### U A #### [facility] ([id number]) [address] [place] [address] BLOOD/HGB Trace Abnormal NEG [facility] Comment on above: Performed By: #### U A #### [facility] ([id number]) [address] [place] [address] Color (U) YELLOW Normal YELLOW [facility] Comment on above: Performed By: #### U A #### [facility] ([id number]) [address] [place] [address] Glucose Ql (U) >1000 Abnormal NEG [facility] Comment on above: Performed By: #### U A #### [facility] ([id number]) [address] [place] [address] 47[address] Ketones Ql (U) Negative Normal NEG [facility] Comment on above: Performed By: #### U A #### [facility] ([id number]) [address] [place] [address] 97958 Leukocyte esterase Test strip Ql (U) Negative Normal NEG [facility] Comment on above: Result Comment: HIGH CONCENTRATIONS OF GLUCOSE MAY DECREASE THE REACTIVITY OF THE DIPSTICK LEUKOCYTE TEST PAD. Performed By: #### U A #### [facility] ([id number]) [address] [place] [address] [place] [address] MUCOUS PRESENT Abnormal NONE [facility] Comment on above: Performed By: #### U A #### [facility] ([id number]) [address] [place] [address] 276[address] Nitrite Ql (U) Positive Abnormal NEG [facility] Comment on above: Performed By: #### U A #### [facility] ([id number]) [address] [place] [address] 85225 pH (U) 6.0 [pH] Normal 5.0-8.5 [facility] Comment on above: Performed By: #### U A #### [facility] ([id number]) [address] [place] [address] 08490 Protein Ql (U) >300 Abnormal NEG [facility] Comment on above: Performed By: #### U A #### [facility] ([id number]) [address] [place] [address] 89305 R.B.CELLS 5 /hpf Normal 0-5 [facility] Comment on above: Performed By: #### U A #### [facility] ([id number]) [address] [place] [address] 65651 Specific gravity (U) [Rel density] 1.015 Normal 1.003-1.035 [facility] Comment on above: Performed By: #### U A #### [facility] ([id number]) [address] [place] [address] 05833 SQUAMOUS EPITHELIUM 4 /hpf Normal 0-5 [facility] Comment on above: Performed By: #### U A #### [facility] ([id number]) [address] [place] [address] 36713 TURBIDITY HAZY Abnormal CLEAR [facility] Comment on above: Performed By: #### U A #### [facility] ([id number]) [address] [place] [address] 60541 Urobilinogen Qn (U) 0.2 {Chaya'U}/dL Normal <1.1 [facility] Comment on above: Performed By: #### U A #### [facility] ([id number]) [address] [place] [address] 23025 W.B.CELLS >100 High 0-5 [facility] Comment on above: Performed By: #### U A #### [facility] ([id number]) [address] [place] [address] 10335 URINE CULTUREon 05-06-2023 Bacteria identified Cx Nom (U) SPECIMEN NOTES URINE RECEIVED WITHOUT PRESERVATIVE CULTURE RESULTS MULTIPLE SPECIES PRESENT. PROBABLE COLLECTION CONTAMINATION. SUGGEST REPEAT SPECIMEN. URINE RECEIVED WITHOUT PRESERVATIVE-DELAYS IN TRANSPORT MAY AFFECT RESULTS.INTERPRET WITH CAUTION AND CLINICAL CORRELATION IS RECOMMENDED. Normal [facility] Comment on above: Performed By: #### B ALCON CBCA, 1987-08, 55123-8 #### [facility] ([id number]) [address] [place] [address] 31992 #### 10860-1 #### [facility] ([id number]) [address] [facility], [address] [place] [address] BASIC METABOLIC PANLon 04-19 Anion gap [Moles/Vol] 6 mmol/L Normal 5-15 [facility] Comment on above: Performed By: #### B ALCON CBCA, 1987-08, 28627-4 #### [facility] ([id number]) [address] [place] [address] 49248 #### 00141-9 #### [facility] ([id number]) [address] [facility], [address] [place] [address] Calcium [Mass/Vol] 8.6 mg/dL Normal 8.5-10.5 [facility] Comment on above: Performed By: #### B ALCON CBCA, 1987-08, 96962-7 #### [facility] ([id number]) [address] [place] [address] #### 50469-6 #### [facility] ([id number]) [address] [facility], [address] [place] [address] Chloride [Moles/Vol] 101 mmol/L Normal 98-109 [facility] Comment on above: Performed By: #### B JAMES RONDON, 1987-08, 30070-7 #### [facility] ([id number]) [address] [place] [address] 64675 #### 80432-9 #### [facility] ([id number]) [address] [place] [address], [address] [place] [address] CO2 [Moles/Vol] 19 mmol/L Low 22-32 [facility] Comment on above: Performed By: #### JAMES Sanchez MP, 1987-08, 34489-6 #### [facility] ([id number]) [address] [place] [address] #### 31584-7 #### [facility] ([id number]) [address] [place] [address], [address] [place] [address] Creatinine [Mass/Vol] 2.57 mg/dL High 0.70-1.20 [facility] Comment on above: Result Comment: METH OD TRACEABLE TO IDMS STANDARD Performed By: #### B JAMES RONDON, 1987-08, 66603-7 #### [facility] ([id number]) [address] [place] [address] #### 80131-8 #### [facility] ([id number]) [address] [facility], [address] [address] [place] [address] GFR/1.73 sq M.predicted among non-blacks MDRD (S/P/Bld) [Vol rate/Area] 27 mL/min/{1.73_m2} Low >59 [facility] Comment on above: Result Comment: Reported eGFR is based on the CKD-EPI 2020 equation that does not use a race coefficient. Performed By: #### JAMES Sanchez MP, 1987-08, 33057-4 #### [facility] ([id number]) [address] [place] [address] 08844 #### 81248-7 #### [facility] ([id number]) [address], [address] [place] [address] Glucose [Mass/Vol] 377 mg/dL High 65-99 [facility] Comment on above: Performed By: #### B JAMES RONDON, 1987-08, 41871-2 #### [facility] ([id number]) [address] [place] [address] 94190 #### 99821-1 #### [facility] ([id number]) [address], [address] [place] [address] Potassium [Moles/Vol] 4.2 mmol/L Normal 3.5-5.0 [facility] Comment on above: Performed By: #### JAMES Sanchez MP, 1987-08, 35655-9 #### [facility] ([id number]) [address] [place] [address] 72822 #### 45739-9 #### [facility] ([id number]) [address], [address] [place] [address] Sodium [Moles/Vol] 126 mmol/L Low 134-146 [facility] Comment on above: Performed By: #### B JAMES RONDON, 1987-08, 39166-1 #### [facility] ([id number]) [address] [place] [address] 15543 #### 28825-3 #### [facility] ([id number]) [address], [address] [place] [address] Urea nitrogen [Mass/Vol] 30 mg/dL High 5-27 [facility] Comment on above: Performed By: #### B MP, CBCA, 1987-08, 15025-1 #### [facility] ([id number]) [address] [place] [address] 77456 #### 68610-5 #### [facility] ([id number]) [address] [facility], [address] [place] [address] CBC AND AUTO DIFFon 04-19-20 23 ABSOLUTE BASOPHIL 0.1 X10E9/L Normal 0.0-0.2 [facility] Comment on above: Performed By: #### B ALCON, CBCA, 1987-08, 05415-1 #### [facility] ([id number]) [address] [place] [address] 33871 #### 98961-8 #### [facility] ([id number]) [address] [facility], [address] [place] [address] ABSOLUTE NEUTROPHIL 8.8 X10E9/L High 1.5-6.6 [facility] Comment on above: Performed By: #### B ALCON, CBCA, 1987-08, 73576-4 #### [facility] ([id number]) [address] [place] [address] 56953 #### 51284-0 #### [facility] ([id number]) [address], [address] [place] [address] Basophils/100 WBC (Bld) 0.5 % Normal [facility] Comment on above: Performed By: #### B MP, CBCA, 1987-08, 44597-6 #### [facility] ([id number]) [address] [place] [address] 93177 #### 49249-0 #### [facility] ([id number]) [address] [facility], [address] [place] [address] Eosinophils (Bld) [#/Vol] 0.3 10*3/uL Normal 0.0-0.4 [facility] Comment on above: Performed By: #### Laura RONDON CBCA, 1987-08, 71666-2 #### [facility] ([id number]) [address] [place] [address] 65836 #### 70056-9 #### [facility] ([id number]) [address] [facility], [address] [place] [address] Eosinophils/100 WBC (Bld) 2.6 % Normal [facility] Comment on above: Performed By: #### B ALCON CBCA, 1987-08, #### [facility] ([id number]) [address] [place] [address] 50690 #### 87412-2 #### [facility] ([id number]) [address] [facility], [address] [place] [address] Erythrocyte distribution width (RBC) [Ratio] 15.5 % High 11.5-15.0 [facility] Comment on above: Performed By: #### Laura RONDON CBCA, 1987-08, #### [facility] ([id number]) [address] [place] [address] 90463 #### 47509-3 #### [facility] ([id number]) [address] [facility], [address] [place] [address] Hematocrit (Bld) [Volume fraction] 36.8 % Low 39-49 [facility] Comment on above: Performed By: #### Laura RONDON CBCA, 1987-08, #### [facility] ([id number]) [address] [place] [address] 13408 #### 51553-6 #### [facility] ([id number]) [address] [facility], [address] [place] [address] Hemoglobin (Bld) [Mass/Vol] 12.0 g/dL Low 13.0-17.0 [facility] Comment on above: Performed By: #### B ALCON CBCA, 1987-08, #### [facility] ([id number]) [address] [place] [address] 08234 #### 99901-0 #### [facility] ([id number]) [address] [facility], [address] [place] [address] Lymphocytes (Bld) [#/Vol] 1.9 10*3/uL Normal 1.0-3.5 [facility] Comment on above: Performed By: #### Laura RONDON CBCA, 1987-08, #### [facility] ([id number]) [address] [place] [address] 10968 #### 54436-9 #### [facility] ([id number]) [address], [address] [place] [address] Lymphocytes/100 WBC (Bld) 15.1 % Normal [facility] Comment on above: Performed By: #### Laura RONDON CBCA, 1987-08, #### [facility] ([id number]) [address] [place] [address] 75988 #### 56600-0 #### [facility] ([id number]) [address] [facility], [address] [place] [address] MCH (RBC) [Entitic mass] 28.2 pg Normal 27-34 [facility] Comment on above: Performed By: #### Laura RONDON CBCA, 1987-08, #### [facility] ([id number]) [address] [place] [address] 70889 #### 04751-6 #### [facility] ([id number]) [address] [place] [address] MCHC (RBC) [Mass/Vol] 32.7 g/dL Normal 32-36 [facility] Comment on above: Performed By: #### B ALCON CBCA, 1987-08, #### [facility] ([id number]) [address] [place] [address] 76859 #### 15575-3 #### [facility] ([id number]) [address], [address] [place] [address] MCV (RBC) [Entitic vol] 86 fL Normal 80-100 [facility] Comment on above: Performed By: #### B ALCON CBCA, 1987-08, #### [facility] ([id number]) [address] [place] [address] 86256 #### 00340-2 #### [facility] ([id number]) [address] [facility], [address] [place] [address] Monocytes (Bld) [#/Vol] 1.4 10*3/uL High 0-0.9 [facility] Comment on above: Performed By: #### Laura RONDON CBCA, 1987-08, #### [facility] ([id number]) [address] [place] [address] 16478 #### 69349-4 #### [facility] ([id number]) [address], [address] [place] [address] Monocytes/100 WBC (Bld) 11.2 % Normal [facility] Comment on above: Performed By: #### Laura RONDON CBCA, 1987-08, #### [facility] ([id number]) [address] [place] [address] 78513 #### 85440-9 #### [facility] ([id number]) [address] [facility], [address] [place] [address] Neutrophils/100 WBC (Bld) 70.6 % Normal [facility] Comment on above: Performed By: #### Laura RONDON CBCA, 1987-08, #### [facility] ([id number]) [address] [place] [address] 52723 #### 53899-8 #### [facility] ([id number]) [address] [facility], [address] [place] [address] Platelet mean volume (Bld) [Entitic vol] 7.6 fL Normal 7-12 [facility] Comment on above: Performed By: #### Laura RONDON, CBCA, 1987-08, #### [facility] ([id number]) [address] [place] [address] 73936 #### 09263-8 #### [facility] ([id number]) [address] [facility], [address] [place] [address] Platelets (Bld) [#/Vol] 325 10*3/uL Normal 150-450 [facility] Comment on above: Performed By: #### Laura RONDON, CBCA, 1987-08, 82050-1 #### [facility] ([id number]) [address] [place] [address] 25345 #### 48949-1 #### [facility] ([id number]) [address] [facility], [address] [place] [address] RBC COUNT 4.27 X10E12/L Normal 4.10-5.70 [facility] Comment on above: Performed By: #### Laura RONDON, CBCA, 1987-08, 97058-2 #### [facility] ([id number]) [address] [place] [address] 75100 #### 22165-6 #### [facility] ([id number]) [address] [place] [address] WBC (Bld) [#/Vol] 12.5 10*3/uL High 4.0-11.0 [facility] Comment on above: Performed By: #### B ALCON CBCA, 1987-08, 12505-5 #### [facility] ([id number]) [address] [place] [address] 73047 #### 99546-3 #### [facility] ([id number]) [address] [facility], [address] [place] [address] CRP [Mass/Vol]on 04-19-2023 C REACTIVE PROTEIN 7.8 mg/dL High 0.000-0.744 [facility] Comment on above: Performed By: #### B ALCON CBCA, 1987-08, 29446-1 #### [facility] ([id number]) [address] [place] [address] 25822 #### 57805-8 #### [facility] ([id number]) [address] [facility], [address] [place] [address] ESR Photometric method (Bld) [Velocity]on 04-19-2023 ESR, ERYTHROCYTE SEDIMENTATION RATE 115 mm/h High 0-20 [facility] Comment on above: Performed By: #### Laura RONDON CBCA, 1987-08, 27368-7 #### [facility] ([id number]) [address] [place] [address] 61584 #### 79598-5 #### [facility] ([id number]) [address] [facility], [address] [place] [address] Natriuretic peptide.B prohor adrianne N-Terminal [Mass/Vol]on 04-19-2023 NT Pro BNP See Below Normal [facility] Comment on above: Result Comment: NOTE TEST RESULT FLAG UNIT REF.RANGE ----- PRO B Natr Peptide 587 H pg/mL <125 Test Performed By: [facility] [address] [place] [address] Director Translational: Tyler Valle III, M.D. CLIA #[id number] Performed By: #### B MP, CBCA, 1987-08, 73878-9 #### [facility] ([id number]) [address] [place] [address], [place] [address] #### 03596-0 #### [facility] ([id number]) [address] [place] [address], [address] [place] [address] Basic Metabolic Profon 02-27 Anion gap [Moles/Vol] 11 mmol/L Normal 9-17 [facility] Comment on above: Performed By: #### S ED, CRP, BMP, CDP #### [facility] [address] [place] [address] Client Services Coordinator: Jameson Aaron MD BUN/CRE Ratio 16 Normal -20 [facility] Comment on above: Performed By: #### S ED, CRP, BMP, CDP #### [facility] [address] [place] [address] Client Services Coordinator: Jameson Aaron MD Calcium [Mass/Vol] 9.4 mg/dL Normal 8.6-10.4 [facility] Comment on above: Performed By: #### S ED, CRP, BMP, CDP #### [facility] [address] [place] [address] Client Services Coordinator: Jameson Aaron MD Chloride [Moles/Vol] 98 mmol/L Normal 98-107 [facility] Comment on above: Performed By: #### S ED, CRP, BMP, CDP #### [facility] [address] [place] [address] Client Services Coordinator: Jameson Aaron MD CO2 [Moles/Vol] 18 mmol/L Low 20-31 [facility] Comment on above: Performed By: #### S ED CRP BMP, CDP #### [facility] [address] [place] [address] Client Services Coordinator: Jameson Aaron MD Creatinine [Mass/Vol] 2.7 mg/dL High 0.7-1.2 [facility] Comment on above: Performed By: #### S LACIE MANRIQUE BMP, CDP #### [facility] [address] [place] [address] Client Services Coordinator: Jameson Aaron MD GFR/1.73 sq M.predicted among non-blacks MDRD (S/P/Bld) [Vol rate/Area] 26 mL/min/{1.73_m2} Low >60 [facility] Comment on above: Result Comment: These [...] By: #### S EDLACIE BMP, CDP #### [facility] [address] [place] [address] Client Services Coordinator: Jameson Aaron MD Glucose [Mass/Vol] 268 mg/dL High 70-99 [facility] Comment on above: Performed By: #### S EDLACIE BMP, CDP #### [facility] [address] [place] [address] Client Services Coordinator: Jameson Aaron MD Potassium [Moles/Vol] 5.2 mmol/L Normal 3.7-5.3 [facility] Comment on above: Performed By: #### S ED, CRP, BMP, CDP #### [facility] [address] [place], [place] [address] Client Services Coordinator: Jameson Aaron MD Sodium [Moles/Vol] 127 mmol/L Low 135-144 [facility] Comment on above: Performed By: #### S ED, CRP, BMP, CDP #### [facility] [address] [place], [place] [address] Client Services Coordinator: Jameson Aaron MD Urea nitrogen [Mass/Vol] 44 mg/dL High 8-23 [facility] Comment on above: Performed By: #### S ED, CRP, BMP, CDP #### [facility] [address] [place] [address] [place] [address] Client Services Coordinator: Jameson Aaron MD C-Reactive Proteinon 023 CRP [Mass/Vol] 131.1 mg/L High 0.0-5.0 [facility] Comment on above: Performed By: #### S ED, CRP, BMP, CDP #### [address] [place] [address] Client Services Coordinator: Jameson Aaron MD CBC with Diffon 02-27-2023 Abs. Basophil 0.06 k/uL Normal 0.00-0.20 [facility] Comment on above: Performed By: #### S ED, CRP, BMP, CDP #### [facility] [address] [place], [place] [address] Client Services Coordinator: Jameson Aaron MD Abs.Imm.Granulocyte 0.11 k/uL Normal 0.00-0.30 [facility] Comment on above: Performed By: #### S ED, CRP, BMP, CDP #### [facility] [address] [place], [place] [address] Client Services Coordinator: Jameson Aaron MD Abs.Neutrophil (Seg) 6.83 k/uL Normal 1.50-8.10 [facility] Comment on above: Performed By: #### S ED, CRP, BMP, CDP #### [facility] [address] [place] [address] [place] [address] Client Services Coordinator: Jameson Aaron MD Basophils/100 WBC (Bld) 1 % Normal 0-2 [facility] Comment on above: Performed By: #### S ED, CRP, BMP, CDP #### [address] [place], [facility] Client Services Coordinator: Jameson Aaron MD Eosinophils (Bld) [#/Vol] 0.22 10*3/uL Normal 0.00-0.44 [facility] Comment on above: Performed By: #### S ED, CRP, BMP, CDP #### [address] [place] [address] Client Services Coordinator: Jameson Aaron MD Eosinophils/100 WBC (Bld) 2 % Normal 1-4 [facility] Comment on above: Performed By: #### S ED, CRP, BMP, CDP #### [address] [place], [facility]83 Client Services Coordinator: Jameson Aaron MD Erythrocyte distribution width (RBC) [Ratio] 14.6 % High 11.8-14.4 [facility] Comment on above: Performed By: #### S ED, CRP, BMP, CDP #### [address] [place], [place] [address] Client Services Coordinator: Jameson Aaron MD Hematocrit (Bld) [Volume fraction] 41.9 % Normal 40.7-50.3 [facility] Comment on above: Performed By: #### S ED, CRP, BMP, CDP #### [address] [place], [facility]83 Client Services Coordinator: Jameson Aaron MD Hemoglobin (Bld) [Mass/Vol] 13.2 g/dL Normal 13.0-17.0 [facility] Comment on above: Performed By: #### S ED, CRP, BMP, CDP #### [facility] [address] [place], [place] [address] Client Services Coordinator: Jameson Aaron MD Immature granulocytes/100 WBC (Bld) 1 % High 0 [facility] Comment on above: Performed By: #### S ED, CRP, BMP, CDP #### [facility] [address] [place], [place] [address] Client Services Coordinator: Jameson Aaron MD Lymphocytes (Bld) [#/Vol] 1.83 10*3/uL Normal 1.10-3.70 [facility] Comment on above: Performed By: #### S ED, CRP, BMP, CDP #### [facility] [address] [place], [place] [address] Client Services Coordinator: Jameson Aaron MD Lymphocytes/100 WBC (Bld) 18 % Low 24-43 [facility] Comment on above: Performed By: #### S ED, CRP, BMP, CDP #### [address] [place], [place] [address] Client Services Coordinator: Jameson Aaron MD MCH (RBC) [Entitic mass] 28.2 pg Normal 25.2-33.5 [facility] Comment on above: Performed By: #### S ED, CRP, BMP, CDP #### [facility] [address] [place] [address] [address], [place] [address] Client Services Coordinator: Jameson Aaron MD MCHC (RBC) [Mass/Vol] 31.5 g/dL Normal 28.4-34.8 [facility] Comment on above: Performed By: #### S ED, CRP, BMP, CDP #### [facility] [address] [place], [place] [address] Client Services Coordinator: Jameson Aaron MD MCV (RBC) [Entitic vol] 89.5 fL Normal 82.6-102.9 [facility] Comment on above: Performed By: #### S ED, CRP, BMP, CDP #### [facility] [address] [place], [place] [address] Client Services Coordinator: Jameson Aaron MD Monocytes (Bld) [#/Vol] 1.42 10*3/uL High 0.10-1.20 [facility] Comment on above: Performed By: #### S ED, CRP, BMP, CDP #### [facility] [address] [place], [place] [address] Client Services Coordinator: Jameson Aaron MD Monocytes/100 WBC (Bld) 14 % High 3-12 [facility] Comment on above: Performed By: #### S ED, CRP, BMP, CDP #### [facility] [address] [place], [place] [address] Client Services Coordinator: Jameson Aaron MD Neutrophil (Seg) 64 % Normal 36-65 [facility] Comment on above: Performed By: #### S ED, CRP, BMP, CDP #### [facility] [address] [place], [place] [address] Client Services Coordinator: Jameson Aaron MD NRBC Automated 0.0 per 100 WBC Normal 0.0 [facility] Comment on above: Performed By: #### S ED, CRP, BMP, CDP #### [facility] [address] [place], [place] [address] Client Services Coordinator: Jameson Aaron MD Platelet mean volume (Bld) [Entitic vol] 9.4 fL Normal 8.1-13.5 [facility] Comment on above: Performed By: #### S ED, CRP, BMP, CDP #### [facility] [address] [place], [facility]83 Client Services Coordinator: Jameson Aaron MD Platelets (Bld) [#/Vol] 266 10*3/uL Normal 138-453 [facility] Comment on above: Performed By: #### S ED, CRP, BMP, CDP #### [facility] [address] [place], [place] [address] Client Services Coordinator: Jameson Aaron MD RBC (Bld) [#/Vol] 4.68 10*6/uL Normal 4.21-5.77 [facility] Comment on above: Performed By: #### S ED, CRP, BMP, CDP #### [facility] [address] [place], [place] [address]83 Client Services Coordinator: Jameson Aaron MD WBC (Bld) [#/Vol] 10.5 10*3/uL Normal 3.5-11.3 [facility] Comment on above: Performed By: #### S ED, CRP, BMP, CDP #### [facility] [address] [place], [place] [address] Client Services Coordinator: Jameson Aaron MD Sedimentation Rateon 023 Sedimentation Rate 114 mm/Hr High 0-20 [facility] Comment on above: Performed By: #### S ED, CRP, BMP, CDP #### [facility] [address] [place], [place] [address] Client Services Coordinator: Jameson Aaron MD FUNGAL CULTUREon 09-21-2022 Fungus (Mycology) Culture Final report Abnormal [facility] Comment on above: Performed By: #### C XFUN ####[facility] [address] [place] [address]Dr. Eddie Lerner Fungus Stain Final report Normal [facility] Comment on above: Performed By: #### C XFUN ####[facility] [address] [place] [id number]. Eddie Lerner Result 1 Comment Normal [facility] Comment on above: Result Comment: ANNEMARIE/ Calcofluor preparation: no fungus observed. Performed By: #### C XFUN ####[facility] [address] [place] [id number]. Eddie Lerner Result 1 Rosy albicans Abnormal [facility] Comment on above: Performed By: #### C XFUN ####[facility] [address] [place] [address]Dr. Eddie Lerner CULTURE OTHERon 08-23-2022 CULTURE OTHER Isolate 1 Enterococcus faecalis Light growth of ORGANISM 1 Enterococcus faecalis ANTIBIOTIC M.I.C RX STATUS Beta-Lactamase Neg NEG F Benzylpenicillin 0.5 S F Ampicillin <=2 S F Gentamicin High Level (synergy) SYN-R R F Streptomycin High Level (synergy) SYN-S S F Quinupristin/Dalfopristin 4 R F Linezolid 1 S F Vancomycin 1 S F Normal [facility] Comment on above: Performed By: #### O THCX ####[facility] [address] [place] [address]DrVaishali Lerner ACID FAST SMEAR AND CXon Acid Fast Smear Negative Normal [facility] Comment on above: Performed By: #### A FB ####[facility] [address] [place], [place] [address]DrVaishali Lerner [employer] Specimen Processing Tissue Grinding [facility] Comment on above: Performed By: #### A FB ####[facility] [address] [place], [place] [address]DrVaishali Lerner BNPon 08-20-2022 Natriuretic peptide B (Bld) [Mass/Vol] 648.0 pg/mL Normal <=900.0 [facility] Comment on above: Performed By: #### A 1C #### [facility] [address] [place] [address] Dr. Eddie Lerner CULTURE ANAEROBICon 08-21-19 23 CULTURE ANAEROBIC Culture Observations : NO GROWTH OF ANAEROBES AT 72 HOURS. Normal [facility] Comment on above: Performed By: #### A NACX ####[facility] [address] [place], [place] [address]DrVaishali Lerner GLYCOHEMOGLOBIN A1Con 2022 ADA RECOMMENDATION SEE BELOW [facility] Comment on above: Result Comment: ADA RECOMMENDED LIMIT 4.0 - 6.0 ADA THERAPEUTIC TARGET < 7.0 ACTION SUGGESTED > 7.0 Performed By: #### R ENAL, LIPID, LIVER, TSH #### [facility] [address] [place] [address] [address] Eddie Lerner Glucose [Mass/Vol] 235 mg/dL Normal [facility] Comment on above: Performed By: #### R ENAL, LIPID, LIVER, TSH #### [facility] [address] [place] [address] [address] Eddie Lerner HbA1c (Bld) [Mass fraction] 9.8 % Critically high 4.5-6.2 [facility] Comment on above: Performed By: #### R ENAL, LIPID, LIVER, TSH #### [facility] [address] [place] [address] [address] Eddie Lerner GRAM STAINon 08-20-2022 COMMENTS NO ORGANISMS OBSERVED Normal [facility] Comment on above: Performed By: #### G STAIN ####[facility] [address] [place] [address]Dr. Eddie Lerner DIPHTHEROIDS Normal [facility] Comment on above: Performed By: #### G STAIN ####[facility] [address] [place] [id number]. Eddie Lerner EPITHELIALS Normal [facility] Comment on above: Performed By: #### G STAIN ####[facility] [address] [place] [address]Dr. Eddie Lerner FUNGAL ELEMENTS Normal [facility] Comment on above: Performed By: #### G STAIN ####[facility] [address]fk[address] [place] [address]Dr. Eddie Lerner GRAM NEG BACILLI Normal [facility] Comment on above: Performed By: #### G STAIN ####[facility] [address]qtyp[address] [place] [address]Dr. Eddie Lerner GRAM NEG DIPPLOCOCCI Normal [facility] Comment on above: Performed By: #### G STAIN ####[facility] Xeggbwiirm[address] [place] [address]Dr. Eddie Lerner GRAM POS BACILLI Normal [facility] Comment on above: Performed By: #### G STAIN ####[facility] [address]qtxcze[address] [place] [address]Dr. Eddie Lerner GRAM POSITIVE COCCI Normal [facility] Comment on above: Performed By: #### G STAIN ####[facility] [address] [place] [id number]. Eddie Lerner GRAM STAIN SOURCE Lt Foot Bone Normal [facility] Comment on above: Performed By: #### G STAIN ####[facility] Qhkrnqmfrf[address]15 [place], [place] [address]Nf. Eddie Lerner GS_DIPTH Normal [facility] Comment on above: Performed By: #### G STAIN ####[facility] [address] [place] [id number]. Eddie Lerner WBC RARE Normal [facility] Comment on above: Performed By: #### G STAIN ####[facility] [address]alyfv[address] [place] [address]Dr. Eddie Lerner LIPID PROFILEon 08-20-2022 CHOL-HDL RATIO NORM SEE BELOW Normal [facility] Comment on above: Result Comment: 3.3 - 4.4 LOW RISK 4.4 - 7.1 AVERAGE RISK 7.1 - 11.0 MODERATE RISK >11.0 HIGH RISK Performed By: #### A 1C #### [facility] [address] [address] [address] Eddie Lerner Cholesterol [Mass/Vol] 137 mg/dL Normal <=200 [facility] Comment on above: Performed By: #### A 1C #### [facility] [address] [address] [address] Eddie Lerner Cholesterol in HDL [Mass/Vol] 54 mg/dL Normal 40-60 [facility] Comment on above: Performed By: #### A 1C #### [facility] [address] [address] [address] Eddie Lerner Cholesterol in LDL [Mass/Vol] 63.2 mg/dL Normal [facility] Comment on above: Performed By: #### A 1C #### [facility] [address] [address] [address] Eddie Lerner Cholesterol.total/Ch olesterol in HDL [Mass ratio] 2.5 {ratio} Normal [facility] Comment on above: Performed By: #### A 1C #### [facility] [address] [address] [address] Eddie Lerner HDL NORMAL > or = 60 mg/dl - LO W CARDIOVASCULAR RISK <40 mg/dl - HIGH CARDIOVASCULAR RISK Normal [facility] Comment on above: Performed By: #### A 1C #### [facility] [address] [address] [address] Eddie Lerner LDL CALC NORMAL SEE BELOW Normal [facility] Comment on above: Result Comment: <100 mg/dl OPTIMAL 100 - 129 mg/dl NEAR OR ABOVE OPTIMAL 130 - 159 mg/dl BORDERLINE HIGH 160 - 189 mg/dl HIGH >190 mg/dl VERY HIGH Performed By: #### A 1C #### [facility] [address] [place] [address] Dr. Eddie Lerner Triglyceride [Mass/Vol] 99 mg/dL Normal <=150 [facility] Comment on above: Performed By: #### A 1C #### [facility] [address] [address] [address] Eddie Lerner VLDL CALC 19.8 mg/dL Normal [facility] Comment on above: Performed By: #### A 1C #### [facility] [address] [address] [address] Eddie Lerner LIVER PROFILEon 08-20-2022 Albumin [Mass/Vol] 2.8 g/dL Critically low 3.4-5.0 Th e [facility] Comment on above: Performed By: #### A 1C #### [facility] [address] [place] [address] Dr. Eddie Lerner Albumin/Globulin [Mass ratio] 0.6 {ratio} Normal [facility] Comment on above: Performed By: #### A 1C #### [facility] [address] [address] [address] Eddie Lerner ALP [Catalytic activity/Vol] 87 U/L Normal 46-116 [facility] Comment on above: Performed By: #### A 1C #### [facility] [address] [place] [address] Dr. Eddie Lerner ALT [Catalytic activity/Vol] 49 U/L Normal 16-63 [facility] Comment on above: Performed By: #### A 1C #### [facility] [address] [address] [address] Eddie Lerner AST [Catalytic activity/Vol] 36 U/L Normal 15-37 [facility] Comment on above: Performed By: #### A 1C #### [facility] [address] [address] [address] Eddie Lerner BILI, CONJUGATED 0.1 mg/dL Normal 0.0-0.2 [facility] Comment on above: Performed By: #### A 1C #### [facility] [address] [address] [address] Eddie Lerner Bilirubin [Mass/Vol] 0.4 mg/dL Normal 0.2-1.0 [facility] Comment on above: Performed By: #### A 1C #### [facility] [address] [address] [address] Eddie Lerner Globulin (S) [Mass/Vol] 4.4 g/dL Normal [facility] Comment on above: Performed By: #### A 1C #### [facility] [address] [address] [address] Eddie Lerner Protein [Mass/Vol] 7.2 g/dL Normal 6.4-8.2 [facility] Comment on above: Performed By: #### A 1C #### [facility] [address] [address] [address] Eddie Lerner POINT OF CARE GLUCOSEon 07-29 Glucose [Mass/Vol] 107 mg/dL Critically high 74-106 [facility] Comment on above: Performed By: #### P OCGLUC #### [facility] [address] [address] [address] Eddie Lerner Glucose [Mass/Vol] 108 mg/dL Critically high 74-106 [facility] Comment on above: Performed By: #### P OCGLUC ####[facility] [address]dtnxla[address] [place] [address]Dr. Eddie Lerner TSHon 08-20-2022 TSH 2.247 uIU/mL Normal 0.358-3.740 [facility] Comment on above: Performed By: #### A 1C #### [facility] [address] [address] [address] Eddie Lerner CBC AUTO DIFFon 08-15-2022 BASO # 0.0 103/ul Normal 0.0-0.1 [facility] Comment on above: Performed By: #### C BC ####[facility] Ejarukoffg[address] [place] [address]Dr. Eddie Lerner Basophils/100 WBC (Bld) 0.4 % Normal 0.2-2.0 [facility] Comment on above: Performed By: #### C BC ####[facility] Jhsmxnbxdw[address] [place] [address]Dr. Eddei Lerner EO # 0.2 103/ul Normal 0.0-0.7 [facility] Comment on above: Performed By: #### C BC ####[facility] Tvhtlvsreo[address] [place] [address]Dr. Eddie Lerner Eosinophils/100 WBC (Bld) 2.0 % Normal 0.9-7.0 [facility] Comment on above: Performed By: #### C BC ####[facility] Jyorcqtc[address] [place], [place] [address]Dr. Eddie Lerner Erythrocyte distribution width (RBC) [Ratio] 14.5 % Normal 11.0-15.0 [facility] Comment on above: Performed By: #### C BC ####[facility] Dzmolyyvol[address] [place], [place] [address]Dr. Eddie Lerner Hematocrit (Bld) [Volume fraction] 40.5 % Critically low 42.0-54.0 [facility] Comment on above: Performed By: #### C BC ####[facility] Haycuwpxrf[address] [place], [place] [address]Dr. Eddie Lerner Hemoglobin (Bld) [Mass/Vol] 13.1 g/dL Critically low 14.0-18.0 [facility] Comment on above: Performed By: #### C BC ####[facility] Nxib[address]woy[address] [place], [place] [address]Dr. Eddie Lerner IG # 0.12 10e3/ul Critically high 0.00-0.03 [facility] Comment on above: Performed By: #### C BC ####[facility] Nwgedhtqvc[address] [place] [address]DrVaishali Eddie Yann IG % 1.2 % Critically high 0.0-0.5 [facility] Comment on above: Performed By: #### C BC ####[facility] [address] [place], [place] [address]DrVaishali Lamaquincy Yann LYMPH # 1.4 103/ul Normal 1.2-3.8 [facility] Comment on above: Performed By: #### C BC ####[facility] I[address]orefvqnl[address] [place], [place] [address]DrVaishali Lerner Lymphocytes/100 WBC (Bld) 13.6 % Critically low 20.5-60.0 [facility] Comment on above: Performed By: #### C BC ####[facility] [address]ct[address] [place], [place] [address]DrVaishali Dainaquincy Lerner MANUAL DIFF REQ NO Normal [facility] Comment on above: Performed By: #### C BC ####[facility] Fjcuhonxbf[address] [place], [place] [address]DrVaishali Eddie Yann MCH (RBC) [Entitic mass] 29.8 pg Normal 25.9-34.0 [facility] Comment on above: Performed By: #### C BC ####[facility] Ifldcenhmk[address] [place], [place] [address]DrVaishali Lerner MCHC (RBC) [Mass/Vol] 32.3 g/dL Normal 29.9-35.2 [facility] Comment on above: Performed By: #### C BC ####[facility] Se[address]iiqsgh[address] [place], [place] [address]DrVaishali Lerner MCV (RBC) [Entitic vol] 92.0 fL Normal 80.0-94.0 [facility] Comment on above: Performed By: #### C BC ####[facility] [address]zxsstc[address] [place], [place] [address]DrVaishali Lerner MONO # 0.5 103/ul Normal 0.3-0.8 [facility] Comment on above: Performed By: #### C BC ####[facility] Yvvljqgljt[address] [place] [address]Dr. Eddie Lerner Monocytes/100 WBC (Bld) 4.8 % Normal 1.7-12.0 [facility] Comment on above: Performed By: #### C BC ####[facility] Rayucgptbs[address] [place] [address]Dr. Eddie Lerner NEUT # 8.1 103/ul Critically high 1.4-6.5 [facility] Comment on above: Performed By: #### C BC ####[facility] Texhisiuct[address] [place] [address]Dr. Eddie Lerner Neutrophils/100 WBC (Bld) 78.0 % Critically high 43.0-75.0 [facility] Comment on above: Performed By: #### C BC ####[facility] Mraufd[address]wy[address] [place], [place] [address]Dr. Eddie Lerner Platelet mean volume (Bld) [Entitic vol] 8.6 fL Critically low 9.5-13.5 [facility] Comment on above: Performed By: #### C BC ####[facility] Sfrtfweoqe[address] [place], [place] [address]Dr. Eddie Lerner PLT 240 103/ul Normal 150-450 [facility] Comment on above: Performed By: #### C BC ####[facility] Wujzjib[address] [place], [place] [address]Dr. Eddie Lerner RBC 4.40 106/ul Critically low 4.70-6.10 [facility] Comment on above: Performed By: #### C BC ####[facility] [address]zwh[address] [place], [place] [address]Dr. Eddie Lerner WBC 10.3 103/ul Normal 4.0-11.0 [facility] Comment on above: Performed By: #### C BC ####[facility] [address]fmxccjm[address] [place], [place] [address]Dr. Eddie Lerner CRPon 04-19-2023 CRP [Mass/Vol] mg/L Normal <=1.0 [facility] Comment on above: Performed By: #### A 1C #### [facility] [address] [place] [address] Dr. Eddie Lerner PROF CHEM 8 (BAS METB)on Anion gap [Moles/Vol] 14.4 mmol/L Normal [facility] Comment on above: Performed By: #### A 1C #### [facility] [address] [place] [address] Dr. Eddie Lerner Calcium [Mass/Vol] 9.2 mg/dL Normal 8.5-10.1 [facility] Comment on above: Performed By: #### A 1C #### [facility] [address] [place] [address] Dr. Eddie Lerner Chloride [Moles/Vol] 101 mmol/L Normal 98-107 [facility] Comment on above: Performed By: #### A 1C #### [facility] [address] [place] [address] Dr. Eddie Lerner CO2 [Moles/Vol] 25.2 mmol/L Normal 21.0-32.0 [facility] Comment on above: Performed By: #### A 1C #### [facility] [address] [place] [address] Dr. Eddie Lerner Creatinine [Mass/Vol] 3.07 mg/dL Critically high 0.70-1.30 [facility] Comment on above: Performed By: #### A 1C #### [facility] [address] [place] [address] Dr. Eddie Lerner EGFR-AF ITALIAN 25 mL/min/1.73m2 Critically low >=60 [facility] Comment on above: Performed By: #### A 1C #### [facility] [address] [place] [address] Dr. Eddie Lerner EGFR-NON AF ITALIAN 21 mL/min/1.73m2 Critically low >=60 [facility] Comment on above: Performed By: #### A 1C #### [facility] [address] [place] [address] Dr. Eddie Lerner Glucose [Mass/Vol] 415 mg/dL Critically high 74-106 T [facility] Comment on above: Performed By: #### A 1C #### [facility] [address] [address] [address] Eddie Lerner Potassium [Moles/Vol] 5.6 mmol/L Critically high 3.5-5.1 [facility] Comment on above: Performed By: #### A 1C #### [facility] [address] [address] [address] Eddie Lerner Sodium [Moles/Vol] 135 mmol/L Critically low 136-145 Th [facility] Comment on above: Performed By: #### A 1C #### [facility] [address] [address] [address] Eddie Lerner Urea nitrogen [Mass/Vol] 34.0 mg/dL Critically high 7.0-18.0 [facility] Comment on above: Performed By: #### A 1C #### [facility] [address] [address] [address] Eddie Lerner Urea nitrogen/Creatinine [Mass ratio] 11.1 mg/mg Normal [facility] Comment on above: Performed By: #### A 1C #### [facility] [address] [place] [address] Dr. Eddie Lerner [facility]ATE 59 mm/hr Critically high <=20 [facility] Comment on above: Performed By: #### S EDR ####[facility] [address] [place] [address]Dr. Eddie Lerner BNPon 06-06-2022 Natriuretic peptide B (Bld) [Mass/Vol] 1342.0 pg/mL Critically high <=900.0 [facility] Comment on above: Performed By: #### B ASBESTOS ABATEMENT WORKER ####[facility] [address]okstsa[address] [place] [address]Dr. Eddie Lerner CBC AUTO DIFFon 06-06-2022 BASO # 0.1 103/ul Normal 0.0-0.1 [facility] Comment on above: Performed By: #### A 1C #### [facility] [address] [place] [address] Dr. Eddie Lerner Basophils/100 WBC (Bld) 0.6 % Normal 0.2-2.0 [facility] Comment on above: Performed By: #### A 1C #### [facility] [address] [place] [address] Dr. Eddie Lerner EO # 0.2 103/ul Normal 0.0-0.7 [facility] Comment on above: Performed By: #### A 1C #### [facility] [address] [place] [address] Dr. Eddie Lerner Eosinophils/100 WBC (Bld) 1.8 % Normal 0.9-7.0 [facility] Comment on above: Performed By: #### A 1C #### [facility] [address] [place] [address] Dr. Eddie Lerner Erythrocyte distribution width (RBC) [Ratio] 15.2 % Critically high 11.0-15.0 [facility] Comment on above: Performed By: #### A 1C #### [facility] [address] [place] [address] Dr. Eddie Lerner Hematocrit (Bld) [Volume fraction] 39.0 % Critically low 42.0-54.0 [facility] Comment on above: Performed By: #### A 1C #### [facility] [address] [place] [address] Dr. Eddie Lerner Hemoglobin (Bld) [Mass/Vol] 12.4 g/dL Critically low 14.0-18.0 [facility] Comment on above: Performed By: #### A 1C #### [facility] [address] [place] [address] Dr. Eddie Lerner IG # 0.21 10e3/ul Critically high 0.00-0.03 [facility] Comment on above: Performed By: #### A 1C #### [facility] [address] [place] [address] Dr. Eddie Lerner IG % 1.6 % Critically high 0.0-0.5 [facility] Comment on above: Performed By: #### A 1C #### [facility] [address] [place] [address] Dr. Eddie Lerner LYMPH # 1.9 103/ul Normal 1.2-3.8 [facility] Comment on above: Performed By: #### A 1C #### [facility] [address] [place] [address] Dr. Eddie Lerner Lymphocytes/100 WBC (Bld) 13.8 % Critically low 20.5-60.0 [facility] Comment on above: Performed By: #### A 1C #### [facility] [address] [place] [address] Dr. Eddie Lerner MANUAL DIFF REQ NO Normal [facility] Comment on above: Performed By: #### A 1C #### [facility] [address] [place] [address] Dr. Eddie Lerner MCH (RBC) [Entitic mass] 27.8 pg Normal 25.9-34.0 [facility] Comment on above: Performed By: #### A 1C #### [facility] [address] [place] [address] Dr. Eddie Lerner MCHC (RBC) [Mass/Vol] 31.8 g/dL Normal 29.9-35.2 [facility] Comment on above: Performed By: #### A 1C #### [facility] [address] [place] [address] Dr. Eddie Lerner MCV (RBC) [Entitic vol] 87.4 fL Normal 80.0-94.0 [facility] Comment on above: Performed By: #### A 1C #### [facility] [address] [place] [address] Dr. Eddie Lerner MONO # 0.8 103/ul Normal 0.3-0.8 [facility] Comment on above: Performed By: #### A 1C #### [facility] [address] [place] [address] Dr. Eddie Lerner Monocytes/100 WBC (Bld) 5.9 % Normal 1.7-12.0 [facility] Comment on above: Performed By: #### A 1C #### [facility] [address] [address] [address] Eddie Lerner NEUT # 10.3 103/ul Critically high 1.4-6.5 [facility] Comment on above: Performed By: #### A 1C #### [facility] [address] [place] [address] Dr. Eddie Lerner Neutrophils/100 WBC (Bld) 76.3 % Critically high 43.0-75.0 [facility] Comment on above: Performed By: #### A 1C #### [facility] [address] [place] [address] Dr. Eddie Lerner Platelet mean volume (Bld) [Entitic vol] 10.2 fL Normal 9.5-13.5 [facility] Comment on above: Performed By: #### A 1C #### [facility] [address] [place] [address] Dr. Eddie Lerner PLT 288 103/ul Normal 150-450 [facility] Comment on above: Performed By: #### A 1C #### [facility] [address] [place] [address] Dr. Eddie Lerner RBC 4.46 106/ul Critically low 4.70-6.10 [facility] Comment on above: Performed By: #### A 1C #### [facility] [address] [place] [address] Dr. Eddie Lerner WBC 13.5 103/ul Critically high 4.0-11.0 [facility] Comment on above: Performed By: #### A 1C #### [facility] [address] [place] [address] Dr. Eddie Lerner GLYCOHEMOGLOBIN A1Con 2022 ADA RECOMMENDATION SEE BELOW Normal [facility] Comment on above: Result Comment: ADA RECOMMENDED LIMIT 4.0 - 6.0 ADA THERAPEUTIC TARGET < 7.0 ACTION SUGGESTED > 7.0 Performed By: #### A 1C #### [facility] [address] [place] [address] Dr. Eddie Lerner Glucose [Mass/Vol] 283 mg/dL Normal [facility] Comment on above: Performed By: #### A 1C #### [facility] [address] [place] [address] Dr. Eddie Lerner HbA1c (Bld) [Mass fraction] 11.5 % Critically high 4.5-6.2 [facility] Comment on above: Performed By: #### A 1C #### [facility] [address] [place] [address] Dr. Eddie Lerner LIPID PROFILEon 06-06-2022 CHOL-HDL RATIO NORM SEE BELOW Normal [facility] Comment on above: Result Comment: 3.3 - 4.4 LOW RISK 4.4 - 7.1 AVERAGE RISK 7.1 - 11.0 MODERATE RISK >11.0 HIGH RISK Performed By: #### R ENAL, LIPID, LIVER, TSH #### [facility] [address] [place] [address] Dr. Eddie Lerner Cholesterol [Mass/Vol] 152 mg/dL Normal <=200 [facility] Comment on above: Performed By: #### R ENAL, LIPID, LIVER, TSH #### [facility] [address] [place] [address] Dr. Eddie Lerner Cholesterol in HDL [Mass/Vol] 51 mg/dL Normal 40-60 [facility] Comment on above: Performed By: #### R ENAL, LIPID, LIVER, TSH #### [facility] [address] [place] [address] Dr. Eddie Lerner Cholesterol in LDL [Mass/Vol] 61.0 mg/dL Normal The [facility] Comment on above: Performed By: #### R ENAL, LIPID, LIVER, TSH #### [facility] [address] [place] [address] Dr. Eddie Lerner Cholesterol.total/Ch olesterol in HDL [Mass ratio] 3.0 {ratio} Normal The [facility] Comment on above: Performed By: #### R ENAL, LIPID, LIVER, TSH #### [facility] [address] [place] [address] Dr. Eddie Lerner HDL NORMAL > or = 60 mg/dl - LO W CARDIOVASCULAR RISK <40 mg/dl - HIGH CARDIOVASCULAR RISK Normal [facility] Comment on above: Performed By: #### R ENAL, LIPID, LIVER, TSH #### [facility] [address] [address] [address] Eddie Lerner LDL CALC NORMAL SEE BELOW Normal [facility] Comment on above: Result Comment: <100 mg/dl OPTIMAL 100 - 129 mg/dl NEAR OR ABOVE OPTIMAL 130 - 159 mg/dl BORDERLINE HIGH 160 - 189 mg/dl HIGH >190 mg/dl VERY HIGH Performed By: #### R ENAL, LIPID, LIVER, TSH #### [facility] [address] [address] [address] Eddie Lerner Triglyceride [Mass/Vol] 200 mg/dL Critically high <=150 [facility] Comment on above: Performed By: #### R ENAL, LIPID, LIVER, TSH #### [facility] [address] [address] [address] Eddie Lerner VLDL CALC 40.0 mg/dL Normal [facility] Comment on above: Performed By: #### R ENAL, LIPID, LIVER, TSH #### [facility] [address] [address] [address] Eddie Lerner LIVER PROFILEon 06-06-2022 Albumin [Mass/Vol] 2.6 g/dL Critically low 3.4-5.0 Th [facility] Comment on above: Performed By: #### R ENAL, LIPID, LIVER, TSH #### [facility] [address] [address] [address] Eddie Lerner Albumin/Globulin [Mass ratio] 0.6 {ratio} Normal [facility] Comment on above: Performed By: #### R ENAL, LIPID, LIVER, TSH #### [facility] [address] [address] [address] Eddie Lerner ALP [Catalytic activity/Vol] 120 U/L Critically high 46-116 The [facility] Comment on above: Performed By: #### R ENAL, LIPID, LIVER, TSH #### [facility] [address] [place] [address] Dr. Eddie Lerner ALT [Catalytic activity/Vol] 22 U/L Normal 16-63 [facility] Comment on above: Performed By: #### R ENAL, LIPID, LIVER, TSH #### [facility] [address] [address] [address] Eddie Lerner AST [Catalytic activity/Vol] 15 U/L Normal 15-37 The [facility] Comment on above: Performed By: #### R ENAL, LIPID, LIVER, TSH #### [facility] [address] [address] [address] Eddie Lerner BILI, CONJUGATED 0.1 mg/dL Normal 0.0-0.2 The [facility] Comment on above: Performed By: #### R ENAL, LIPID, LIVER, TSH #### [facility] [address] [address] [address] Eddie Lerner Bilirubin [Mass/Vol] 0.3 mg/dL Normal 0.2-1.0 The [facility] Comment on above: Performed By: #### R ENAL, LIPID, LIVER, TSH #### [facility] [address] [place] [address] Dr. Eddie Lerner Globulin (S) [Mass/Vol] 4.7 g/dL Normal The [facility] Comment on above: Performed By: #### R ENAL, LIPID, LIVER, TSH #### [facility] [address] [place] [address] Dr. Eddie Lerner Protein [Mass/Vol] 7.3 g/dL Normal 6.4-8.2 The [facility] Comment on above: Performed By: #### R ENAL, LIPID, LIVER, TSH #### [facility] [address] [place] [address] Dr. Eddie Lerner RENAL FUNCTION PANELon 06-06 Calcium [Mass/Vol] 9.0 mg/dL Normal 8.5-10.1 The [facility] Comment on above: Performed By: #### R ENAL, LIPID, LIVER, TSH #### [facility] [address] [place] [address] Dr. Eddie Lerner Chloride [Moles/Vol] 96 mmol/L Critically low 98-107 The [facility] Comment on above: Performed By: #### R ENAL, LIPID, LIVER, TSH #### [facility] [address] [place] [address] Dr. Eddie Lerner CO2 [Moles/Vol] 21.8 mmol/L Normal 21.0-32.0 [facility] Comment on above: Performed By: #### R ENAL, LIPID, LIVER, TSH #### [facility] [address] [address] [address] Eddie Lerner Creatinine [Mass/Vol] 2.38 mg/dL Critically high 0.70-1.30 [facility] Comment on above: Performed By: #### R ENAL, LIPID, LIVER, TSH #### [facility] [address] [address] [address] Eddie Lerner EGFR-AF ITALIAN 34 mL/min/1.73m2 Critically low >=60 [facility] Comment on above: Performed By: #### R ENAL, LIPID, LIVER, TSH #### [facility] [address] [place] [address] Dr. Eddie Lerner EGFR-NON AF ITALIAN 28 mL/min/1.73m2 Critically low >=60 [facility] Comment on above: Performed By: #### R ENAL, LIPID, LIVER, TSH #### [facility] [address] [address] [address] Eddie Lerner Glucose [Mass/Vol] 523 mg/dL Critically high 74-106 T [facility] Comment on above: Performed By: #### R ENAL, LIPID, LIVER, TSH #### [facility] [address] [address] [address] Eddie Lerner Phosphate [Mass/Vol] 4.1 mg/dL Normal 2.6-4.7 [facility] Comment on above: Performed By: #### R ENAL, LIPID, LIVER, TSH #### [facility] [address] [address] [address] Eddie Lerner Potassium [Moles/Vol] 4.6 mmol/L Normal 3.5-5.1 [facility] Comment on above: Performed By: #### R ENAL, LIPID, LIVER, TSH #### [facility] [address] [address] [address] Eddie Lerner Sodium [Moles/Vol] 128 mmol/L Critically low 136-145 Th e [facility] Comment on above: Performed By: #### R ENAL, LIPID, LIVER, TSH #### [facility] [address] [place] [address] Dr. Eddie Lerner Urea nitrogen [Mass/Vol] 28.0 mg/dL Critically high 7.0-18.0 [facility] Comment on above: Performed By: #### R ENAL, LIPID, LIVER, TSH #### [facility] [address] [place] [address] Dr. Eddie Lerner TSHon 06-06-2022 TSH 1.308 uIU/mL Normal 0.358-3.740 [facility] Comment on above: Performed By: #### R ENAL, LIPID, LIVER, TSH #### [facility] [address] [place] [address] Dr. Eddie Lerner UA RANDOMon 06-06-2022 Bilirubin Ql (U) Negative Normal NEGATIVE The [facility] Comment on above: Performed By: #### U A #### [facility] [address] [place] [address] Dr. Eddie Lerner Clarity (U) CLEAR Normal CLEAR The [facility] Comment on above: Performed By: #### U A #### [facility] [address] [place] [address] Dr. Eddie Lerner Color (U) LT. YELLOW Normal YELLOW The [facility] Comment on above: Performed By: #### U A #### [facility] [address] [place] [address] Dr. Eddie Lerner Glucose Ql (U) >1000 Abnormal NEGATIVE [facility] Comment on above: Performed By: #### U A #### [facility] [address] [place] [address] Dr. Eddie Lerner Hemoglobin Ql (U) TRACE-INTACT Abnormal NEGATIVE [facility] Comment on above: Performed By: #### U A #### [facility] [address] [place] [address] Dr. Eddie Lerner Ketones Ql (U) Negative Normal NEGATIVE [facility] Comment on above: Performed By: #### U A #### [facility] [address] [place] [address] Dr. Eddie Lerner LEUKOCYTES Negative Normal NEGATIVE [facility] Comment on above: Performed By: #### U A #### [facility] [address] [place] [address] Dr. Eddie Lerner Nitrite Ql (U) Negative Normal NEGATIVE [facility] Comment on above: Performed By: #### U A #### [facility] [address] [place] [address] Dr. Eddie Lerner pH (U) 6.5 [pH] Normal 5-9 [facility] Comment on above: Performed By: #### U A #### [facility] [address] [place] [address] Dr. Eddie Lerner SPEC GRAVITY 1.010 Normal 1.005-<=1.02 5 [facility] Comment on above: Performed By: #### U A #### [facility] [address] [place] [address] Dr. Eddie Lerner UA PROTEIN 100 mg/dl Abnormal NEGATIVE/ TRACE The [facility] Comment on above: Performed By: #### U A #### [facility] [address] [place] [address] Dr. Eddie Lerner Urobilinogen Qn (U) 0.2 {Chaya'U}/dL Normal 0.2 - 1. 0 [facility] Comment on above: Performed By: #### U A #### [facility] [address] [place] [address] Dr. Eddie Lerner VITAMIN D 25 OHon 06-06-2022 VIT D 25-OH 13.9 ng/mL Normal [facility] Comment on above: Performed By: #### V ITAD ####[facility] [id number] [address]Dr. Eddie Lerner VIT D RANGES SEE BELOW Normal [facility] Comment on above: Result Comment: <20 ng/mL Vit D deficient 20 - <30 ng/mL Vit D insufficient 30 - 100 ng/mL Vit D sufficient >100 ng/mL Potential Toxicity Performed By: #### V ITAD ####[facility] [id number] [id number] Eddie Lerner ACID FAST SMEAR AND CXon Acid Fast Culture Negative Normal [facility] Comment on above: Result Comment: No a wendy fast bacilli isolated after 6 weeks. Performed By: #### A FB ####[facility] [id number] [id number][address] Eddie Lerner Acid Fast Smear Negative Normal [facility] Comment on above: Performed By: #### A FB ####[facility] [id number] [address]Dr. Eddie Lerner [employer] Specimen Processing Tissue Grinding [facility] Comment on above: Performed By: #### A FB ####[facility] [id number] [address]Dr. Eddie Lerner FUNGAL CULTUREon 01-19-2022 Fungus (Mycology) Culture Final report Normal [facility] Comment on above: Performed By: #### R ENAL, LIPID, LIVER, TSH #### [facility] [address] [address] [address] Eddie Lerner Fungus Stain Final report [facility] Comment on above: Performed By: #### R ENAL, LIPID, LIVER, TSH #### [facility] [address] [address] [address] Eddie Lerner Result 1 Comment Normal [facility] Comment on above: Result Comment: ANNEMARIE/ Calcofluor preparation: no fungus observed. Performed By: #### R ENAL, LIPID, LIVER, TSH #### [facility] [address] [address] [address] Eddie Lerner Result Comment: No y east or mold isolated after 4 weeks. POINT OF CARE GLUCOSEon 12-28 Glucose [Mass/Vol] 177 mg/dL Critically high 74-106 [facility] Comment on above: Performed By: #### A 1C #### [facility] [address] [address] [address] Eddie Lerner Glucose [Mass/Vol] 200 mg/dL Critically high 74-106 [facility] Comment on above: Performed By: #### P OCGLUC ####[facility] [address] [place], [place] [address]MzDr. Eddie Lerner Covid-19 PCR ([facility]on 12-28 SARS-CoV-2 (COVID-19) RNA SUDHA+probe Ql (Unsp spec) Not detected Normal NOT DETECTED The [facility] Comment on above: Result Comment: This test is not yet approved or cleared by the [place] FDA. When there are no FDA-approved or cleared tests available, and other criteria are met, FDA can make tests available under an emergency access mechanism called an Emergency Use Authorization (EUA). The EUA for this test is supported by the [place] of Health and Human Service's (HHS's) declaration [...] SARS-CoV-2. Performed By: #### A 1C #### [facility] [address] [place] [address] Dr. Eddie Lerner PROF CHEM 8 (BAS METB)on Anion gap [Moles/Vol] 15.0 mmol/L Normal [facility] Comment on above: Performed By: #### R ENAL, LIPID, LIVER, TSH #### [facility] [address] [address] [address] Eddie Lerner Calcium [Mass/Vol] 9.3 mg/dL Normal 8.5-10.1 [facility] Comment on above: Performed By: #### R ENAL, LIPID, LIVER, TSH #### [facility] [address] [address] [address] Eddie Lerner Chloride [Moles/Vol] 105 mmol/L Normal 98-107 [facility] Comment on above: Performed By: #### R ENAL, LIPID, LIVER, TSH #### [facility] [address] [address] [address] Eddie Lerner CO2 [Moles/Vol] 22.1 mmol/L Normal 21.0-32.0 [facility] Comment on above: Performed By: #### R ENAL, LIPID, LIVER, TSH #### [facility] [address] [address] [address] Eddie Lerner Creatinine [Mass/Vol] 2.29 mg/dL Critically high 0.70-1.30 [facility] Comment on above: Performed By: #### R ENAL, LIPID, LIVER, TSH #### [facility] [address] [place] [address] Dr. Eddie Lerner EGFR-AF ITALIAN 35 mL/min/1.73m2 Critically low >=60 [facility] Comment on above: Performed By: #### R ENAL, LIPID, LIVER, TSH #### [facility] [address] [place] [address] Dr. Eddie Lerner EGFR-NON AF ITALIAN 29 mL/min/1.73m2 Critically low >=60 [facility] Comment on above: Performed By: #### R ENAL, LIPID, LIVER, TSH #### [facility] [address] [place] [address] Dr. Eddie Lerner Glucose [Mass/Vol] 115 mg/dL Critically high 74-106 T [facility] Comment on above: Performed By: #### R ENAL, LIPID, LIVER, TSH #### [facility] [address] [place] [address] Dr. Eddie Lerner Potassium [Moles/Vol] 5.1 mmol/L Normal 3.5-5.1 [facility] Comment on above: Performed By: #### R ENAL, LIPID, LIVER, TSH #### [facility] [address] [place] [address] Dr. Eddie Lerner Sodium [Moles/Vol] 137 mmol/L Normal 136-145 [facility] Comment on above: Performed By: #### R ENAL, LIPID, LIVER, TSH #### [facility] [address] [address] [address] Eddie Lerner Urea nitrogen [Mass/Vol] 26.0 mg/dL Critically high 7.0-18.0 The [facility] Comment on above: Performed By: #### R ENAL, LIPID, LIVER, TSH #### [facility] [address] [address] [address] Eddie Lerner Urea nitrogen/Creatinine [Mass ratio] 11.4 mg/mg Normal The [facility] Comment on above: Performed By: #### R ENAL, LIPID, LIVER, TSH #### [facility] [address] [address] [address] Eddie Lerner TISSUE CULTUREon 01-08-2022 Anaerobic Culture, Extended Incubation Final report Normal [facility] Comment on above: Performed By: #### C XTISSU ####[facility] [id number] [address]Dr. Eddie Lerner Result 1 Comment Normal [facility] Comment on above: Result Comment: Diph theroids, not Corynebacterium jeikeium Light growth Susceptibility not normally performed on this organism. Performed By: #### C XTISSU ####[facility] [id number] [address]Dr. Eddie Lerner Result Comment: No a naerobes recovered. Tissue Culture Final report Abnormal The [facility] Comment on above: Performed By: #### C XTISSU ####[facility] [id number] [address]Dr. Eddie Lerner POINT OF CARE GLUCOSEon 11-28 Glucose [Mass/Vol] 89 mg/dL Normal 74-106 [facility] Comment on above: Performed By: #### R ENAL, LIPID, LIVER, TSH #### [facility] [address] [address] [address] Eddie Lerner Glucose [Mass/Vol] 85 mg/dL Normal 74-106 [facility] Comment on above: Performed By: #### P OCGLUC ####[facility] [id number] [address]Dr. Eddie Lerner GRAM STAINon 12-21-2021 COMMENTS NO ORGANISMS OBSERVED Normal [facility] Comment on above: Performed By: #### R ENAL, LIPID, LIVER, TSH #### [facility] [address] [address] [address] Eddie Lerner DIPHTHEROIDS Normal [facility] Comment on above: Performed By: #### R ENAL, LIPID, LIVER, TSH #### [facility] [address] [address] [address] Eddie Lerner EPITHELIALS Normal [facility] Comment on above: Performed By: #### R ENAL, LIPID, LIVER, TSH #### [facility] [address] [address] [address] Eddie Lerner FUNGAL ELEMENTS Normal [facility] Comment on above: Performed By: #### R ENAL, LIPID, LIVER, TSH #### [facility] [address] [address] [address] Eddie PRINGLE NEG BACILLI Normal The [facility] Comment on above: Performed By: #### R ENAL, LIPID, LIVER, TSH #### [facility] [address] [address] [address] Eddie PRINGLE NEG DIPPLOCOCCI Normal [facility] Comment on above: Performed By: #### R ENAL, LIPID, LIVER, TSH #### [facility] [address] [address] [address] Eddie PRINGLE POS BACILLI Normal The [facility] Comment on above: Performed By: #### R ENAL, LIPID, LIVER, TSH #### [facility] [address] [address] [address] Eddie Lerner GRAM POSITIVE COCCI Normal [facility] Comment on above: Performed By: #### R ENAL, LIPID, LIVER, TSH #### [facility] [address] [address] [address] Eddie Lerner GRAM STAIN SOURCE Lt 1st Metatarsal Bone Normal [facility] Comment on above: Performed By: #### R ENAL, LIPID, LIVER, TSH #### [facility] [address] [address] [address] Eddie Lerner GS_DIPTH Normal [facility] Comment on above: Performed By: #### R ENAL, LIPID, LIVER, TSH #### [facility] [address] [address] [address] Eddie Lerner WBC RARE Normal [facility] Comment on above: Performed By: #### R ENAL, LIPID, LIVER, TSH #### [facility] [address] [address] [address] Eddie Lerner POINT OF CARE GLUCOSEon 11-28 Glucose [Mass/Vol] 148 mg/dL Critically high 74-106 [facility] Comment on above: Performed By: #### A 1C #### [facility] [address] [address] [address] Eddie Lerner Glucose [Mass/Vol] 100 mg/dL Normal 74-106 [facility] Comment on above: Performed By: #### P OCGLUC ####[facility] [address] [address]Dr. Eddie Lerner Glucose [Mass/Vol] 85 mg/dL Normal 74-106 [facility] Comment on above: Performed By: #### P OCGLUC ####[facility] [id number] [address]Dr. Eddie Lerner Glucose [Mass/Vol] 83 mg/dL Normal 74-106 [facility] Comment on above: Performed By: #### R ENAL, LIPID, LIVER, TSH #### [facility] [address] [address] [address] Eddie Lerner Covid-19 PCR ([facility])on 11-28 SARS-CoV-2 (COVID-19) RNA SUDHA+probe Ql (Unsp spec) Not detected Normal NOT DETECTED [facility] Comment on above: Result Comment: This test is not yet approved or cleared by the [place] FDA. When there are no FDA-approved or cleared tests available, and other criteria are met, FDA can make tests available under an emergency access mechanism called an Emergency Use Authorization (EUA). The EUA for this test is supported by the [place] of Health and Human Service's (HHS's) declaration [...] with SARS-CoV-2. Performed By: #### C VDTBH ####[facility] [id number] [address]Dr. Eddie Lerner PROF CHEM 8 (BAS METB)on Anion gap [Moles/Vol] 11.5 mmol/L Normal [facility] Comment on above: Performed By: #### R ENAL, LIPID, LIVER, TSH #### [facility] [address] [place] [address] Dr. Eddie Lerner Calcium [Mass/Vol] 9.0 mg/dL Normal 8.5-10.1 [facility] Comment on above: Performed By: #### R ENAL, LIPID, LIVER, TSH #### [facility] [address] [place] [address] Dr. Eddie Lerner Chloride [Moles/Vol] 102 mmol/L Normal 98-107 [facility] Comment on above: Performed By: #### R ENAL, LIPID, LIVER, TSH #### [facility] [address] [address] [address] Edide Lerner CO2 [Moles/Vol] 24.8 mmol/L Normal 21.0-32.0 [facility] Comment on above: Performed By: #### R ENAL, LIPID, LIVER, TSH #### [facility] [address] [place] [address] Dr. Eddie Lerner Creatinine [Mass/Vol] 2.19 mg/dL Critically high 0.70-1.30 [facility] Comment on above: Performed By: #### R ENAL, LIPID, LIVER, TSH #### [facility] [address] [place] [address] Dr. Eddie Lerner EGFR-AF ITALIAN 37 mL/min/1.73m2 Critically low >=60 [facility] Comment on above: Performed By: #### R ENAL, LIPID, LIVER, TSH #### [facility] [address] [address] [address] Eddie Lerner EGFR-NON AF ITALIAN 31 mL/min/1.73m2 Critically low >=60 [facility] Comment on above: Performed By: #### R ENAL, LIPID, LIVER, TSH #### [facility] [address] [address] [address] Eddie Lerner Glucose [Mass/Vol] 330 mg/dL Critically high 74-106 T [facility] Comment on above: Performed By: #### R ENAL, LIPID, LIVER, TSH #### [facility] [address] [address] [address] Eddie Lerner Potassium [Moles/Vol] 5.3 mmol/L Critically high 3.5-5.1 [facility] Comment on above: Performed By: #### R ENAL, LIPID, LIVER, TSH #### [facility] [address] [address] [address] Eddie Lerner Sodium [Moles/Vol] 133 mmol/L Critically low 136-145 Th [facility] Comment on above: Performed By: #### R ENAL, LIPID, LIVER, TSH #### [facility] [address] [address] [address] Eddie Lerner Urea nitrogen [Mass/Vol] 25.0 mg/dL Critically high 7.0-18.0 [facility] Comment on above: Performed By: #### R ENAL, LIPID, LIVER, TSH #### [facility] [address] [address] [address] Eddie Lerner Urea nitrogen/Creatinine [Mass ratio] 11.4 mg/mg Normal [facility] Comment on above: Performed By: #### R ENAL, LIPID, LIVER, TSH #### [facility] [address] [address] [address] Eddie Lerner Albumin [Mass/volume] in Ser um or Plasmaon 08-25-2020 Albumin [Mass/Vol] 2.0 g/dL 3.2-5.5 [facility] Basophils Auto (Bld) [#/Vol] on 08-25-2020 Basophils (Bld) [#/Vol] 0.0 10*3/uL 0.0-0.2 [facility] Basophils/100 WBC Auto (Bld) on 08-25-2020 Basophils/100 WBC (Bld) 0.1 % [facility] Blood anisocytosis detection on 08-25-2020 Anisocytosis Ql (Bld) Slight [facility] Blood hemoglobin measurement (mass/volume)on 08-25-2020 Hemoglobin (Bld) [Mass/Vol] 10.1 g/dL 13.0-17.0 [facility] Blood leukocytes automated c ount (number/volume)on 08-25-2020 WBC (Bld) [#/Vol] 12.6 10*3/uL 4.5-11.0 [facility] Blood polychromasia detectio n by light microscopyon 08-25-2020 Polychromasia LM Ql (Bld) Slight [facility] Creatinine and Glomerular fi ltration rate.predicted panel (S/P/Bld)on 08-25-2020 Creatinine [Mass/Vol] 4.06 mg/dL 0.64-1.27 [facility] Eosinophils Auto (Bld) [#/Vo l]on 08-25-2020 Eosinophils (Bld) [#/Vol] 0.0 10*3/uL 0.0-0.45 [facility] Eosinophils/100 WBC Auto (Bl d)on 08-25-2020 Eosinophils/100 WBC (Bld) 0.1 % [facility] Erythrocyte distribution wid th Auto (RBC) [Ratio]on 08-25-2020 Erythrocyte distribution width (RBC) [Ratio] 16.6 % 12.0-14.8 [facility] Estimated glomerular filtrat ion rate (GFR) non- Americanon 08-25-2020 GFR/1.73 sq M.predicted among non-blacks MDRD (S/P/Bld) [Vol rate/Area] 15 mL/Min [facility] Glucose Glucometer (BldC) [M ass/Vol]on 08-25-2020 Glucose [Mass/Vol] 122 mg/dL [facility] Comment on above: Random Glucose Refer ence Range is dependent on time and content of last meal. Glucose of more than 200 mg/dL in a nonstressed, ambulatory subject supports the diagnosis of Diabetes Mellitus. Hematocrit Auto (Bld) [Volum e fraction]on 08-25-2020 Hematocrit (Bld) [Volume fraction] 31.7 % 38.8-50.0 [facility] Laboratory - Hematology and Cell countson 08-25-2020 Nucleated RBC/100 WBC (Bld) [Ratio] 0.2 % 0-0.5 [facility] Lymphocytes Auto (Bld) [#/Vo l]on 08-25-2020 Lymphocytes (Bld) [#/Vol] 1.1 10*3/uL 1.00-4.8 [facility] Lymphocytes/100 WBC Auto (Bl d)on 08-25-2020 Lymphocytes/100 WBC (Bld) 8.9 % [facility] MCH Auto (RBC) [Entitic mass ]on 08-25-2020 MCH (RBC) [Entitic mass] 26.2 pg 27.5-35.2 [facility] MCHC Auto (RBC) [Mass/Vol]on 08-25-2020 MCHC (RBC) [Mass/Vol] 31.9 g/dL 32.5-35.6 [facility] MCV Auto (RBC) [Entitic vol] on 08-25-2020 MCV (RBC) [Entitic vol] 82.3 fL 83.5-101 [facility] Monocytes Auto (Bld) [#/Vol] on 08-25-2020 Monocytes (Bld) [#/Vol] 1.2 10*3/uL 0.0-0.8 [facility] Monocytes/100 WBC Auto (Bld) on 08-25-2020 Monocytes/100 WBC (Bld) 9.6 % [facility] Neutrophils Auto (Bld) [#/Vo l]on 08-25-2020 Neutrophils (Bld) [#/Vol] 10.2 10*3/uL 1.8-7.7 [facility] Neutrophils/100 WBC Auto (Bl d)on 08-25-2020 Neutrophils/100 WBC (Bld) 81.3 % [facility] No Panel Informationon 08-25 Bedside Glucose Comment Glu2: cleaned meter [facility] Estimated GFR () 18 mL/Min [facility] Comment on above: GFR estimated refere nce range: According to KDOQI guidelines, <60 ml/min/1.73m2 is sufficient to diagnose a patient with chronic kidney disease. Pharmacy Creatinine Clearance (Chem 31.84 [facility] Platelet Estimate Normal Normal [facility] Platelet Morphology Comment Normal Normal [facility] Phosphate [Mass/volume] in S miki or Plasmaon 08-25-2020 Phosphate [Mass/Vol] 5.3 mg/dL 2.5-4.6 [facility] Platelet mean volume Auto (B ld) [Entitic vol]on 08-25-2020 Platelet mean volume (Bld) [Entitic vol] 7.1 fL 6.6-10.1 [facility] Platelets Auto (Bld) [#/Vol] on 08-25-2020 Platelets (Bld) [#/Vol] 388 10*3/uL 150-450 [facility] RBC Auto (Bld) [#/Vol]on RBC (Bld) [#/Vol] 3.85 10*6/uL 3.90-5.60 [facility] RBC morphologyon 08-25-2020 RBC morphology finding Nom (Bld) N/A [facility] Serum or plasma calcium joel urement (mass/volume)on 08-25-2020 Calcium [Mass/Vol] 8.7 mg/dL 8.2-10.2 [facility] Serum or plasma chloride faraz surement (moles/volume)on 08-25-2020 Chloride [Moles/Vol] 99 mmol/L 95-114 [facility] Serum or plasma glucose joel urement (mass/volume)on 08-25-2020 Glucose [Mass/Vol] 113 mg/dL 70-100 [facility] Comment on above: ADA recommended refe rence rangeRandom Glucose Reference Range is dependent on time and content of last meal. Glucose of more than 200 mg/dL in a nonstressed, ambulatory subject supports the diagnosis of Diabetes Mellitus. Serum or plasma potassium me asurement (moles/volume)on 08-25-2020 Potassium [Moles/Vol] 4.6 mmol/L 3.5-5.1 [facility] Serum or plasma sodium measu rement (moles/volume)on 08-25-2020 Sodium [Moles/Vol] 135 mmol/L 136-146 [facility] Serum or plasma total carbon dioxide measurement (moles/volume)on 08-25-2020 CO2 [Moles/Vol] 26.2 mmol/L 22.0-30.0 [facility] Serum or plasma urea nitroge n measurement (mass/volume)on 08-25-2020 Urea nitrogen [Mass/Vol] 75 mg/dL 01-19 [facility] Erythrocyte basophilic stipp ling detectionon 08-24-2020 Basophilic stippling LM Ql (Bld) Slight [facility] Laboratory - Hematology and Cell countson 08-24-2020 Band form neutrophils/100 WBC (Bld) 1 % 0-5 [facility] Lymphocytes/100 WBC Auto (Bl d)on 08-24-2020 Lymphocytes/100 WBC (Bld) 6 % 18-42 [facility] Metamyelocytes/100 WBC Manua l cnt (Bld)on 08-24-2020 Metamyelocytes/100 WBC (Bld) 1 % 0-0 [facility] Monocytes/100 WBC Manual cnt (Bld)on 08-24-2020 Monocytes/100 WBC (Bld) 4 % 2-11 [facility] Myelocytes/100 WBC Manual cn t (Bld)on 08-24-2020 Myelocytes/100 WBC (Bld) 1 % 0-0 [facility] No Panel Informationon 08-24 Rouleau Slight [facility] Segmented neutrophils/100 WB C Manual cnt (Bld)on 08-24-2020 Segmented neutrophils/100 WBC (Bld) 87 % 50-70 [facility] No Panel Informationon 08-23 Bedside Glucose #[address]/rn [facility] Bedside Glucose #3 Comment Cleaned meter [facility] Serum nuclear antibody titer on 08-23-2020 Nuclear Ab (S) [Titer] Negative [facility] Comment on above: Negative <1:80 Ericsondra karrie 1:80 Positive >1:80Performed at: [facility] [address] [id number] Director: Mata Brian PhD, Phone: [phone] Serum or plasma rheumatoid f actor measurement (units/volume)on 08-23-2020 Rheumatoid factor Qn 20.6 [IU]/mL [facility] Comment on above: Performed at: [facility] [address] [id number] Director: Mata Brian PhD, Phone: [phone] CT biopsyon 08-22-2020 Transferrin [Mass/Vol] 104 mg/dL 180-380 [facility] Ferritin [Mass/volume] in Se rum or Plasmaon 08-22-2020 Ferritin [Mass/Vol] 334.8 ng/mL 23.9-336.2 [facility] Iron [Mass/volume] in Serum or Plasmaon 08-22-2020 Iron [Mass/Vol] 17 ug/dL 40-160 [facility] Iron binding capacity [Mass/ volume] in Serum or Plasmaon 08-22-2020 Iron binding capacity [Mass/Vol] 146 ug/dL 255-450 [facility] Iron saturation [Mass Fracti on] in Serum or Plasmaon 08-22-2020 Iron saturation [Mass fraction] 11.0 % 20-50 [facility] Creatine kinase [Enzymatic a ctivity/volume] in Serum or Plasmaon 08-21-2020 CK [Catalytic activity/Vol] 45 U/L 22-269 [facility] No Panel Informationon 08-21 Dohle Bodies Slight [facility] Serum or plasma cardiac trop onin I measurement (mass/volume)on 08-21-2020 Troponin I.cardiac [Mass/Vol] ng/mL 0-0.02 [facility] Comment on above: HÉCTOR MO Cut off value > or equal to 0.03 ng/mL in conjunction with clinical conditions of myocardial infarction.([email or web address]/guidelines) Serum or plasma creatine kin ase MB (CKMB)/total creatine kinase (CK) ratio by calculaon 08-21-2020 CK.MB Calc [Catalytic fraction] 5.1 % 0.00-2.50 [facility] Serum or plasma creatine kin ase MB measurement (mass/volume)on 08-21-2020 CK.MB [Mass/Vol] 2.3 ng/mL 0.6-6.3 [facility] Erythrocyte sedimentation ra te by Photometric methodon 08-20-2020 ESR Photometric method (Bld) [Velocity] 108 mm/hr 0-19 [facility] Serum or plasma C reactive p rotein measurement (mass/volume)on 08-20-2020 CRP [Mass/Vol] 19.4 mg/dL 0.0-1.0 [facility] ABO and Rh group post transf usion reaction Nom (Bld)on 08-19-2020 Microscopic observation Gram stain Nom (Unsp spec) [facility] Glucose mean value [Mass/vol ume] in Blood Estimated from glycated hemoglobinon 08-19-2020 Average glucose Estimated from glycated hemoglobin (Bld) [Mass/Vol] 298 mg/dL [facility] Hemoglobin A1c percentageon 08-19-2020 HbA1c (Bld) [Mass fraction] 12.0 % 4.3-5.6 [facility] Comment on above: Increased risk for d iabetes: 5.7 - 6.4diabetes: >6.4glycemic control for adults with diabetes: <7.0 Laboratory - Chemistry and C hemistry - challengeon 08-19-2020 Magnesium [Mass/Vol] 2.0 mg/dL 1.6-2.6 [facility] No Panel Informationon 08-19 25-Hydroxy Vitamin D Total 24.6 ng/mL 30-100 [facility] Comment on above: VITAMIN D STATUS 25( [...] s 25.1-36.5 [facility] Albumin [Mass/volume] in Ser um or Plasmaon 08-18-2020 Albumin [Mass/Vol] 2.7 g/dL 3.2-5.5 [facility] Bacterial blood cultureon Bacteria identified Cx Nom (Bld) NO GROWTH 5 DAYS [facility] Basophils Auto (Bld) [#/Vol] on 08-18-2020 Basophils (Bld) [#/Vol] 0.0 10*3/uL 0.0-0.2 [facility] Basophils/100 WBC Auto (Bld) on 08-18-2020 Basophils/100 WBC (Bld) 0.3 % [facility] Beta-hydroxybutyric acid faraz surementon 08-18-2020 Beta hydroxybutyrate [Mass/Vol] 0.44 mmol/L 0.02-0.27 [facility] Blood hemoglobin measurement (mass/volume)on 08-18-2020 Hemoglobin (Bld) [Mass/Vol] 11.8 g/dL 13.0-17.0 [facility] Blood leukocytes automated c ount (number/volume)on 08-18-2020 WBC (Bld) [#/Vol] 15.3 10*3/uL 4.5-11.0 [facility] COVID-19 Detected/Not Detect edon 08-18-2020 SARS-CoV-2 (COVID-19) RNA SUDHA+non-probe Ql (Nph) Not detected Not Detecte [facility] Comment on above: This is a duplicate RP2.1 COVID (PCR) result to be used for statistical tracking purpose only. COVID-19 SOFIAon 08-18-2020 SARS-CoV+SARS-CoV-2 (COVID-19) Ag IA.rapid Ql (Resp) Negative Negative [facility] Comment on above: This is a duplicate Ayah SARS Antigen (AGUSTINA) result to be used for statistical tracking purpose only. Creatinine and Glomerular fi ltration rate.predicted panel (S/P/Bld)on 08-18-2020 Creatinine [Mass/Vol] 3.04 mg/dL 0.64-1.27 [facility] Eosinophils Auto (Bld) [#/Vo l]on 08-18-2020 Eosinophils (Bld) [#/Vol] 0.5 10*3/uL 0.0-0.45 [facility] Eosinophils/100 WBC Auto (Bl d)on 08-18-2020 Eosinophils/100 WBC (Bld) 3.4 % [facility] Erythrocyte distribution wid th Auto (RBC) [Ratio]on 08-18-2020 Erythrocyte distribution width (RBC) [Ratio] 16.3 % 12.0-14.8 [facility] Estimated glomerular filtrat ion rate (GFR) non- Americanon 08-18-2020 GFR/1.73 sq M.predicted among non-blacks MDRD (S/P/Bld) [Vol rate/Area] 21 mL/Min [facility] Globulin Calc (S) [Mass/Vol] on 08-18-2020 Globulin (S) [Mass/Vol] 4.4 g/dL [facility] Glucose Glucometer (BldC) [M ass/Vol]on 08-18-2020 Glucose [Mass/Vol] 388 mg/dL [facility] Comment on above: Random Glucose Refer ence Range is dependent on time and content of last meal. Glucose of more than 200 mg/dL in a nonstressed, ambulatory subject supports the diagnosis of Diabetes Mellitus. Hematocrit Auto (Bld) [Volum e fraction]on 08-18-2020 Hematocrit (Bld) [Volume fraction] 36.1 % 38.8-50.0 [facility] Laboratory - Chemistry and C hemistry - challengeon 08-18-2020 CO2 [Moles/Vol] 25.7 mmol/L 24.0-29.0 [facility] HCO3 (Bld) [Moles/Vol] 24.3 mmol/L 23.0-29.0 [facility] Magnesium [Mass/Vol] 2.2 mg/dL 1.6-2.6 [facility] Natriuretic peptide B (Bld) [Mass/Vol] 48.0 pg/mL 5-100 [facility] Laboratory - Coagulationon 0 08-18-2020 PT Coag (PPP) [Time] 11.7 s 9.0-12.9 [facility] Laboratory - Hematology and Cell countson 08-18-2020 Nucleated RBC/100 WBC (Bld) [Ratio] 0.1 % 0-0.5 [facility] Lymphocytes Auto (Bld) [#/Vo l]on 08-18-2020 Lymphocytes (Bld) [#/Vol] 0.9 10*3/uL 1.00-4.8 [facility] Lymphocytes/100 WBC Auto (Bl d)on 08-18-2020 Lymphocytes/100 WBC (Bld) 6.1 % [facility] MCH Auto (RBC) [Entitic mass ]on 08-18-2020 MCH (RBC) [Entitic mass] 27.2 pg 27.5-35.2 [facility] MCHC Auto (RBC) [Mass/Vol]on 08-18-2020 MCHC (RBC) [Mass/Vol] 32.6 g/dL 32.5-35.6 [facility] MCV Auto (RBC) [Entitic vol] on 08-18-2020 MCV (RBC) [Entitic vol] 83.5 fL 83.5-101 [facility] Monocytes Auto (Bld) [#/Vol] on 08-18-2020 Monocytes (Bld) [#/Vol] 1.5 10*3/uL 0.0-0.8 [facility] Monocytes/100 WBC Auto (Bld) on 08-18-2020 Monocytes/100 WBC (Bld) 10.1 % [facility] Neutrophils Auto (Bld) [#/Vo l]on 08-18-2020 Neutrophils (Bld) [#/Vol] 12.3 10*3/uL 1.8-7.7 [facility] Neutrophils/100 WBC Auto (Bl d)on 08-18-2020 Neutrophils/100 WBC (Bld) 80.1 % [facility] No Panel Informationon 08-18 Respiratory Panel (PCR) [facility] Blood Gas Critical Value See comment [facility] Comment on above: Critical Value fonseca d on: 08/18/2020 at 17:44 Blood Gas Sample Site Venous [facility] FiO2 21 % [facility] Venous Blood Base Excess -1.5 mmol/L -3.0-3.0 [facility] Venous Blood Oxygen Content 4.1 mmol/L 6.6-9.7 [facility] Venous Blood Oxygen Saturation 53.3 % 73.0-76.0 [facility] Venous Blood Partial Pressure CO2 45.2 mm[Hg] 38.0-50.0 [facility] Venous Blood Partial Pressure O2 24.4 mm[Hg] 35.0-45.0 [facility] Venous Blood pH 7.35 7.32-7.43 [facility] Estimated GFR () 26 mL/Min [facility] Comment on above: GFR estimated refere nce range: According to KDOQI guidelines, <60 ml/min/1.73m2 is sufficient to diagnose a patient with chronic kidney disease. Pharmacy Creatinine Clearance (Chem 38.57 [facility] Platelet mean volume Auto (B ld) [Entitic vol]on 08-18-2020 Platelet mean volume (Bld) [Entitic vol] 7.3 fL 6.6-10.1 [facility] Platelet poor plasma interna tional normalized ratio (INR) by coagulation assay (relaton 08-18-2020 INR Coag (PPP) [Relative time] 1.0 {INR} [facility] Comment on above: INR Therapeutic Rang e [...] 08-18-2020 Platelets (Bld) [#/Vol] 249 10*3/uL 150-450 [facility] Protein [Mass/volume] in Ser um or Plasmaon 08-18-2020 Protein [Mass/Vol] 7.1 g/dL 6.1-7.9 [facility] RBC Auto (Bld) [#/Vol]on RBC (Bld) [#/Vol] 4.32 10*6/uL 3.90-5.60 [facility] Serum or plasma alanine gomez otransferase measurement without P-5'-P (enzymatic activion 08-18-2020 ALT No additional P-5'-P [Catalytic activity/Vol] 13 U/L 10-60 [facility] Serum or plasma albumin/glob ulin mass ratioon 08-18-2020 Albumin/Globulin [Mass ratio] 0.6 {ratio} [facility] Serum or plasma alkaline kayode sphatase measurement (enzymatic activity/volume)on 08-18-2020 ALP [Catalytic activity/Vol] 88 U/L 32 [facility] Serum or plasma aspartate am inotransferase measurement (enzymatic activity/volume)on 08-18-2020 AST [Catalytic activity/Vol] 16 U/L 10- [facility] Serum or plasma calcium joel urement (mass/volume)on 08-18-2020 Calcium [Mass/Vol] 8.9 mg/dL 8.2-10.2 [facility] Serum or plasma cardiac trop onin I measurement (mass/volume)on 08-18-2020 Troponin I.cardiac [Mass/Vol] ng/mL 0-0.02 [facility] Comment on above: HÉCTOR MO Cut off value > or equal to 0.03 ng/mL in conjunction with clinical conditions of myocardial infarction.([email or web address].[email or web address]/guidelines) Serum or plasma chloride faraz surement (moles/volume)on 08-18-2020 Chloride [Moles/Vol] 95 mmol/L 95-114 [facility] Serum or plasma glucose joel urement (mass/volume)on 08-18-2020 Glucose [Mass/Vol] 512 mg/dL 70-100 [facility] Comment on above: Results calledat 165 9 on 08/18/20 ADA recommended reference rangeRandom Glucose Reference Range is dependent on time and content of last meal. Glucose of more than 200 mg/dL in a nonstressed, ambulatory subject supports the diagnosis of Diabetes Mellitus. Serum or plasma potassium me asurement (moles/volume)on 08-18-2020 Potassium [Moles/Vol] 4.2 mmol/L 3.5-5.1 [facility] Serum or plasma sodium measu rement (moles/volume)on 08-18-2020 Sodium [Moles/Vol] 128 mmol/L 136-146 [facility] Serum or plasma total biliru bin measurement (mass/volume)on 08-18-2020 Bilirubin [Mass/Vol] 0.7 mg/dL 0.3-1.2 [facility] Serum or plasma total carbon dioxide measurement (moles/volume)on 08-18-2020 CO2 [Moles/Vol] 22.6 mmol/L 22.0-30.0 [facility] Serum or plasma urea nitroge n measurement (mass/volume)on 08-18-2020 Urea nitrogen [Mass/Vol] 27 mg/dL 01-19 [facility] CBC COMPLETE BLOOD COUNTon 07-22-2020 Erythrocyte distribution width (RBC) [Ratio] 15.0 % Normal 11.5-15.0 [facility] Comment on above: Order Comment: No: D o not add to previous draw Performed By: [id number] #### [facility] [address] Hematocrit (Bld) [Volume fraction] 32.4 % Low 39.0-50.0 [facility] Comment on above: Order Comment: No: D o not add to previous draw Performed By: #### [id number] #### [facility] [address] [facility] [place] [address], [facility] Hemoglobin (Bld) [Mass/Vol] 9.5 g/dL Low 13.0-17.0 [facility] Comment on above: Order Comment: No: D o not add to previous draw Performed By: #### 8 6139 #### [facility] [address] [place] [address], [facility] MCH (RBC) [Entitic mass] 26.7 pg Low 27.0-33.0 [facility] Comment on above: Order Comment: No: D o not add to previous draw Performed By: #### 8 [id number] #### [facility] [address] [place] [address], [facility] MCHC (RBC) [Mass/Vol] 29.3 g/dL Low 32.0-35.0 [facility] Comment on above: Order Comment: No: D o not add to previous draw Performed By: #### 8 [id number] #### [facility] [address] [place] [id number], [facility] MCV (RBC) [Entitic vol] 91.0 fL Normal 82.0-98.0 [facility] Comment on above: Order Comment: No: D o not add to previous draw Performed By: #### 8 [id number] #### [facility] [address] [place] [address], [facility] Nucleated RBC/100 WBC (Bld) [Ratio] 0 % Normal 0-0 [facility] Comment on above: Order Comment: No: D o not add to previous draw Performed By: #### 8 [id number] #### [facility] [address] [place] [address], [place] PLAT CNT 276 10*3/uL Normal 150-400 [facility] Comment on above: Order Comment: No: D o not add to previous draw Performed By: #### 8 5499 #### [facility] [address] [facility] [facility] [place] [address], [facility] RBC (Bld) [#/Vol] 3.56 10*6/uL Low 4.20-5.70 [facility] Comment on above: Order Comment: No: D o not add to previous draw Performed By: #### 8 [id number] #### [facility] [address] [place] [id number], [facility] WBC (Bld) [#/Vol] 8.61 10*3/uL Normal 4.00-10.60 [facility] Comment on above: Order Comment: No: D o not add to previous draw Performed By: #### 8 [id number] #### [facility] [address] [place] [address], [facility] COMP METABOLIC PANELon 07-22 Albumin [Mass/Vol] 2.7 g/dL Low 3.5-5.7 [facility] Comment on above: Order Comment: No: D o not add to previous draw Performed By: #### 8 [id number] #### [facility] [address] [place] [address], [place] ALKALINE PHOSPH 70 IU/L Normal 34-104 [facility] Comment on above: Order Comment: No: D o not add to previous draw Performed By: #### 8 5499 #### [facility] [address] [place] [address], [place] ALT [Catalytic activity/Vol] 4 U/L Low 7-52 [facility] Comment on above: Order Comment: No: D o not add to previous draw Performed By: #### 8 5499 #### [facility] [address] [place] [address], [place] AST [Catalytic activity/Vol] 15 U/L Normal 13-39 [facility] Comment on above: Order Comment: No: D o not add to previous draw Performed By: #### 8 5499 #### [facility] [address] [place] [address], [place] Bilirubin [Mass/Vol] 0.2 mg/dL Low 0.3-1.0 [facility] Comment on above: Order Comment: No: D o not add to previous draw Performed By: #### 8 5499 #### [facility] [address] [place] [address], [place] Calcium [Mass/Vol] 8.9 mg/dL Normal 8.6-10.3 [facility] Comment on above: Order Comment: No: D o not add to previous draw Performed By: #### 8 5499 #### [facility] [address] [place] [address], [place] Chloride [Moles/Vol] 109 mmol/L High 98-107 [facility] Comment on above: Order Comment: No: D o not add to previous draw Performed By: #### 8 5499 #### [facility] [address] [place] [address], [place] CO2 [Moles/Vol] 24 mmol/L Normal 21-31 [facility] Comment on above: Order Comment: No: D o not add to previous draw Performed By: #### 8 5499 #### [facility] [address] [place] [address], [place] Creatinine [Mass/Vol] 3.39 mg/dL High 0.70-1.30 [facility] Comment on above: Order Comment: No: D o not add to previous draw Performed By: #### 8 5499 #### [facility] [address] [place] [address], [facility] eGFR- 23 ml/min/1.73sq m Abnormal >60 [facility] Comment on above: Order Comment: No: D o not add to previous draw Performed By: #### 8 5499 #### [facility] [address] [place] [address], [place] eGFR- non- 19 ml/min/1.73sq m Abnormal >60 [facility] Comment on above: Order Comment: No: D o not add to previous draw Performed By: #### 8 5499 #### [facility] [address] [place] [address], [place] Glucose [Mass/Vol] 90 mg/dL Normal 70-100 [facility] Comment on above: Order Comment: No: D o not add to previous draw Performed By: #### 8 5499 #### [facility] [address] [place] [address], [place] Potassium [Moles/Vol] 4.4 mmol/L Normal 3.5-5.1 [facility] Comment on above: Order Comment: No: D o not add to previous draw Performed By: #### 8 5499 #### [facility] [address] [place] [address], [place] Protein [Mass/Vol] 5.9 g/dL Low 6.0-8.3 [facility] Comment on above: Order Comment: No: D o not add to previous draw Performed By: #### 8 5499 #### [facility] [address] [place] [address], [place] Sodium [Moles/Vol] 140 mmol/L Normal 136-145 [facility] Comment on above: Order Comment: No: D o not add to previous draw Performed By: #### 8 5499 #### [facility] [address] [place] [address], [place] Urea nitrogen [Mass/Vol] 35 mg/dL High 7-25 [facility] Comment on above: Order Comment: No: D o not add to previous draw Performed By: #### 8 5499 #### [facility] [address] [place] [address], [place] POC GLUCOSE LABon 07-22-2020 Glucose [Mass/Vol] 192 mg/dL High 70-100 [facility] Comment on above: Performed By: #### 8 5499 #### [facility] [address] [place] [address], [place] Glucose [Mass/Vol] 95 mg/dL Normal 70-100 [facility] Comment on above: Performed By: #### 5 7307, 07716 #### [facility] [address] [place] [address], [place] Glucose [Mass/Vol] 123 mg/dL High 70-100 [facility] Comment on above: Performed By: #### 8 5499 ####[facility] [place] [address], [place] ARTERIAL BLOOD GAS WITH ICAo n 07-21-2020 BASE EXCESS -2 mmol/L Normal -2-3 [facility] Comment on above: Performed By: #### 8 5499 #### [facility] [address] [place] [address], [facility] [employer] FOCUS Normal [facility] Comment on above: Performed By: #### 8 5499 #### [facility] [address] [place] [address], [place] HCO3 (Bld) [Moles/Vol] 24 mmol/L Normal 21-28 [facility] Comment on above: Performed By: #### 8 5499 #### [facility] [address] [place] [address], [place] IONIZED CALCIUM 1.25 mmol/L Normal 1.13-1.32 [facility] Comment on above: Performed By: #### 8 5499 #### [facility] [address] [place] [address], [place] LPM 4.0 LPM Normal [facility] Comment on above: Performed By: #### 8 5499 #### [facility] [address] [place] [address], [place] MODALITY BIPAP Normal [facility] Comment on above: Performed By: #### 8 5499 #### [facility] [address] [place] [address], [place] Oxygen (Bld) [Partial pressure] 91 mm[Hg] Normal 83-108 [facility] Comment on above: Performed By: #### 8 5499 #### [facility] [address] [place] [address], [place] Oxygen saturation in Blood 95.9 % Normal 94.0-97.0 [facility] Comment on above: Performed By: #### 8 5499 #### [facility] [address] [place] [address], [place] PCO2 47 mmHg High 35-45 [facility] Comment on above: Performed By: #### 8 5499 #### [facility] [address] [place] [address], [facility] PEEP 8.0 CMH20 Normal [facility] Comment on above: Performed By: #### 8 5499 #### [facility] [address] [place] [address], [facility] pH (Bld) 7.32 [pH] Low 7.35-7.45 [facility] Comment on above: Performed By: #### 8 5499 #### [facility] [address] [place] [address], [facility] PRESSURE SUPPORT 16 Normal [facility] Comment on above: Performed By: #### 8 5499 #### [facility] [address] [place] [address], [facility] BASE EXCESS -3 mmol/L Low -2-3 [facility] Comment on above: Performed By: #### 3 0318 #### [facility] [address] [place] [address], [facility] [employer] NASAL CANNULA Normal [facility] Comment on above: Performed By: #### 3 8 #### [facility] [address] [place] [address], [place] HCO3 (Bld) [Moles/Vol] 25 mmol/L Normal 21-28 [facility] Comment on above: Performed By: #### 3 8 #### [facility] [address] [place] [address], [facility] IONIZED CALCIUM 1.26 mmol/L Normal 1.13-1.32 [facility] Comment on above: Performed By: #### 3 8 #### [facility] [address] [place] [address], [place] LPM 2.0 LPM Normal [facility] Comment on above: Performed By: #### 3 8 #### [facility] [address] [place] [address], [place] Oxygen (Bld) [Partial pressure] 92 mm[Hg] Normal 83-108 [facility] Comment on above: Performed By: #### 3 8 #### [facility] [address] [place] [address], [place] Oxygen saturation in Blood 95.7 % Normal 94.0-97.0 [facility] Comment on above: Performed By: #### 3 8 #### [facility] [address] [place] [address], [place] PCO2 54 mmHg High 35-45 [facility] Comment on above: Performed By: #### 3 8 #### [facility] [address] [place] [address], [place] pH (Bld) 7.27 [pH] Low 7.35-7.45 [facility] Comment on above: Performed By: #### 3 8 #### [facility] [address] [place] [address], [place] BASIC METABOLIC PANELon 03-2 Calcium [Mass/Vol] 9.0 mg/dL Normal 8.6-10.3 [facility] Comment on above: Order Comment: No: D o not add to previous drawPt not in room rn will return when back. Performed By: #### 3 4 #### [facility] [address] [place] [address], [place] Chloride [Moles/Vol] 106 mmol/L Normal 98-107 [facility] Comment on above: Order Comment: No: D o not add to previous drawPt not in room rn will return when back. Performed By: #### 3 1943 #### [facility] [address] [place] [address], [place] CO2 [Moles/Vol] 25 mmol/L Normal 21-31 [facility] Comment on above: Order Comment: No: D o not add to previous drawPt not in room rn will return when back. Performed By: #### 3 1943 #### [facility] [address] [place] [address], [facility] Creatinine [Mass/Vol] 3.75 mg/dL High 0.70-1.30 [facility] Comment on above: Order Comment: No: D o not add to previous drawPt not in room rn will return when back. Performed By: #### 3 1943 #### [facility] [address] [place] [id number], [facility] eGFR- 20 ml/min/1.73sq m Abnormal >60 [facility] Comment on above: Order Comment: No: D o not add to previous drawPt not in room rn will return when back. Performed By: #### 3 1943 #### [facility] [address] [place] [address], [facility] eGFR- non- 17 ml/min/1.73sq m Abnormal >60 [facility] Comment on above: Order Comment: No: D o not add to previous drawPt not in room rn will return when back. Performed By: #### 3 1943 #### [facility] [address] [place] [id number], [facility] Glucose [Mass/Vol] 132 mg/dL High 70-100 [facility] Comment on above: Order Comment: No: D o not add to previous drawPt not in room rn will return when back. Performed By: #### 3 1943 #### [facility] [address] [place] [address], [facility] Potassium [Moles/Vol] 5.0 mmol/L Normal 3.5-5.1 [facility] Comment on above: Order Comment: No: D o not add to previous drawPt not in room rn will return when back. Performed By: #### 3 1943 #### [facility] [address] [place] [address], [facility] Sodium [Moles/Vol] 138 mmol/L Normal 136-145 [facility] Comment on above: Order Comment: No: D o not add to previous drawPt not in room rn will return when back. Performed By: #### 3 1943 #### [facility] [address] [place] [address], [facility] Urea nitrogen [Mass/Vol] 37 mg/dL High 7-25 [facility] Comment on above: Order Comment: No: D o not add to previous drawPt not in room rn will return when back. Performed By: #### 3 1943 #### [facility] [address] [place], [place] [address] CBC COMPLETE BLOOD COUNTon 07-21-2020 Erythrocyte distribution width (RBC) [Ratio] 15.0 % Normal 11.5-15.0 [facility] Comment on above: Order Comment: No: D o not add to previous drawPt not in room rn will return when back. Performed By: #### 8 [id number] #### [facility] [address] [place] [address], [facility] Hematocrit (Bld) [Volume fraction] 33.9 % Low 39.0-50.0 [facility] Comment on above: Order Comment: No: D o not add to previous drawPt not in room rn will return when back. Performed By: #### 8 [id number] #### [facility] [address] [facility] [address], [facility] Hemoglobin (Bld) [Mass/Vol] 9.9 g/dL Low 13.0-17.0 [facility] Comment on above: Order Comment: No: D o not add to previous drawPt not in room rn will return when back. Performed By: #### 8 5499 #### [facility] [address] [place] [address], [facility] MCH (RBC) [Entitic mass] 26.9 pg Low 27.0-33.0 [facility] Comment on above: Order Comment: No: D o not add to previous drawPt not in room rn will return when back. Performed By: #### 8 5499 #### [facility] [address] [facility] [place] [address], [facility] MCHC (RBC) [Mass/Vol] 29.2 g/dL Low 32.0-35.0 [facility] Comment on above: Order Comment: No: D o not add to previous drawPt not in room rn will return when back. Performed By: #### 8 5499 #### [facility] [address] [facility] [place] [address], [facility] MCV (RBC) [Entitic vol] 92.1 fL Normal 82.0-98.0 [facility] Comment on above: Order Comment: No: D o not add to previous drawPt not in room rn will return when back. Performed By: #### 8 5499 #### [facility] [address] Nucleated RBC/100 WBC (Bld) [Ratio] 0 % Normal 0-0 [facility] Comment on above: Order Comment: No: D o not add to previous drawPt not in room rn will return when back. Performed By: #### 8 5499 #### [facility] [address] [facility] [place] [address], [facility] PLAT CNT 288 10*3/uL Normal 150-400 [facility] Comment on above: Order Comment: No: D o not add to previous drawPt not in room rn will return when back. Performed By: #### 8 5499 #### [facility] [address] [facility] [place] [address], [facility] RBC (Bld) [#/Vol] 3.68 10*6/uL Low 4.20-5.70 [facility] Comment on above: Order Comment: No: D o not add to previous drawPt not in room rn will return when back. Performed By: #### 8 5499 #### [facility] [address] [facility] [place] WBC (Bld) [#/Vol] 9.51 10*3/uL Normal 4.00-10.60 [facility] Comment on above: Order Comment: No: D o not add to previous drawPt not in room rn will return when back. Performed By: #### 8 5499 #### [address] CHEST WO CONTRASTon 07-21 CT CHEST WO CONTRAST [facility] Department of Radiology [address] [place] [id number] Patient Name: RASHARD LYMAN : 1960 Sex: M Age: Race: White Pt. Location: [id number] Patient Status: I Ordered Date: 07/21/2020 6:00:00 [...] pneumonia. Electronically signed: Manuel Saldaña. Transcribed by: [email or web address], User Resident: Electronically Signed by: MANUEL SALDAÑA @ 07/21/2020 08:38 AM Normal [facility] Comment on above: Order Comment: Left Peural Effusion POC GLUCOSE LABon 07-21-2020 Glucose [Mass/Vol] 134 mg/dL High 70-100 [facility] Comment on above: Performed By: #### 5 0103 #### [facility] [address] [place] [address], [facility] Glucose [Mass/Vol] 88 mg/dL Normal 70-100 [facility] Comment on above: Performed By: #### 8 5499 #### [facility] [address] [facility] [place] [address], [facility] Glucose [Mass/Vol] 110 mg/dL High 70-100 [facility] Comment on above: Performed By: #### 8 5499 #### [facility] [address] [place] [address], [facility] Glucose [Mass/Vol] 118 mg/dL High 70-100 [facility] Comment on above: Performed By: #### 5 7307, [address] #### [facility] [address] [place] [address], [place] Glucose [Mass/Vol] 137 mg/dL High 70-100 [facility] Comment on above: Performed By: #### 5 7307, [address] #### [facility] [address] [place] [address], [facility] BASIC METABOLIC PANELon 03-2 Calcium [Mass/Vol] 8.4 mg/dL Low 8.6-10.3 [facility] Comment on above: Order Comment: No: D o not add to previous draw Performed By: #### 8 5499 #### [facility] [address] [place] [address], [place] Chloride [Moles/Vol] 107 mmol/L Normal 98-107 [facility] Comment on above: Order Comment: No: D o not add to previous draw Performed By: #### 8 5499 #### [facility] [address] [place] [address], [place] CO2 [Moles/Vol] 23 mmol/L Normal 21-31 [facility] Comment on above: Order Comment: No: D o not add to previous draw Performed By: #### 8 5499 #### [facility] [address] [place] [address], [place] Creatinine [Mass/Vol] 3.95 mg/dL High 0.70-1.30 [facility] Comment on above: Order Comment: No: D o not add to previous draw Performed By: #### 8 5499 #### [facility] [address] [place] [address], [place] eGFR- 19 ml/min/1.73sq m Abnormal >60 [facility] Comment on above: Order Comment: No: D o not add to previous draw Performed By: #### 8 5499 #### [facility] [address] [place] [address], [facility] eGFR- non- 16 ml/min/1.73sq m Abnormal >60 [facility] Comment on above: Order Comment: No: D o not add to previous draw Performed By: #### 8 5499 #### [facility] [address] [place] [id number], [facility] Glucose [Mass/Vol] 110 mg/dL High 70-100 [facility] Comment on above: Order Comment: No: D o not add to previous draw Performed By: #### 8 5499 #### [facility] [address] [place] [address], [facility] Potassium [Moles/Vol] 4.9 mmol/L Normal 3.5-5.1 [facility] Comment on above: Order Comment: No: D o not add to previous draw Performed By: #### 8 5499 #### [facility] [address] [place] [id number], [facility] Sodium [Moles/Vol] 137 mmol/L Normal 136-145 [facility] Comment on above: Order Comment: No: D o not add to previous draw Performed By: #### 8 5499 #### [facility] [address] [place] [address], [facility] Urea nitrogen [Mass/Vol] 37 mg/dL High 7-25 [facility] Comment on above: Order Comment: No: D o not add to previous draw Performed By: #### 8 5499 #### [facility] [address] [place] [id number], [facility] CBC W/DIFFon 07-20-2020 ABS IMM GRANS 0.1 10*3/uL Normal 0.0-0.2 [facility] Comment on above: Order Comment: No: D o not add to previous draw Performed By: #### 8 5499 #### [facility] [address] [place] [address], [facility] ABS NEUTROPHILS 5.9 10*3/uL Normal 1.6-7.6 [facility] Comment on above: Order Comment: No: D o not add to previous draw Performed By: #### 8 5499 #### [facility] [address] [place] [address], [facility] Basophils (Bld) [#/Vol] 0.1 10*3/uL Normal 0.0-0.2 [facility] Comment on above: Order Comment: No: D o not add to previous draw Performed By: #### 8 5499 #### [facility] [address] [place] [address], [facility] Basophils/100 WBC (Bld) 1.0 % Normal 0.0-1.0 [facility] Comment on above: Order Comment: No: D o not add to previous draw Performed By: #### 8 5499 #### [facility] [address] [place] [address], [facility] Eosinophils (Bld) [#/Vol] 0.4 10*3/uL Normal 0.0-0.5 [facility] Comment on above: Order Comment: No: D o not add to previous draw Performed By: #### 8 [id number] #### [facility] [address] [place] [id number], [facility] Eosinophils/100 WBC (Bld) 5.1 % Normal 0.0-6.0 [facility] Comment on above: Order Comment: No: D o not add to previous draw Performed By: #### 8 5499 #### [facility] [address] [place] [address], [place] Erythrocyte distribution width (RBC) [Ratio] 15.4 % High 11.5-15.0 [facility] Comment on above: Order Comment: No: D o not add to previous draw Performed By: #### 8 [id number] #### [facility] [address] [place] [address], [facility] [facility] Hematocrit (Bld) [Volume fraction] 35.7 % Low 39.0-50.0 The [facility] Comment on above: Order Comment: No: D o not add to previous draw Performed By: #### 8 [id number] #### [facility] [address] [place] [address], [facility] Hemoglobin (Bld) [Mass/Vol] 10.3 g/dL Low 13.0-17.0 [facility] Comment on above: Order Comment: No: D o not add to previous draw Performed By: #### 8 [id number] #### [facility] [address] [place] [address], [facility] IMM PLATELET FRAC 0.4 % Low 0.8-6.3 [facility] Comment on above: Order Comment: No: D o not add to previous draw Performed By: #### 8 [id number] #### [facility] [address] [place] [address], [facility] IMMATURE GRANS 1.1 % High 0.0-1.0 [facility] Comment on above: Order Comment: No: D o not add to previous draw Performed By: #### 8 [id number] #### [facility] [address] [facility] [place] [address], [facility] Lymphocytes (Bld) [#/Vol] 0.8 10*3/uL Low 1.2-4.0 [facility] Comment on above: Order Comment: No: D o not add to previous draw Performed By: #### 8 [id number] #### [facility] [address] [place] [address], [facility] Lymphocytes/100 WBC (Bld) 9.3 % Low 20.0-45.0 [facility] Comment on above: Order Comment: No: D o not add to previous draw Performed By: #### 8 [id number] #### [facility] [address] [place] [address], [facility] MCH (RBC) [Entitic mass] 27.4 pg Normal 27.0-33.0 [facility] Comment on above: Order Comment: No: D o not add to previous draw Performed By: #### 8 [id number] #### [facility] [address] [place] [address], [facility] MCHC (RBC) [Mass/Vol] 28.9 g/dL Low 32.0-35.0 [facility] Comment on above: Order Comment: No: D o not add to previous draw Performed By: #### 8 [id number] #### [facility] [address] [facility] [place] [id number], [facility] MCV (RBC) [Entitic vol] 94.9 fL Normal 82.0-98.0 [facility] Comment on above: Order Comment: No: D o not add to previous draw Performed By: #### 8 [id number] #### [facility] [address] [place] [id number], [facility] Monocytes (Bld) [#/Vol] 1.1 10*3/uL High 0.1-1.0 [facility] Comment on above: Order Comment: No: D o not add to previous draw Performed By: #### 8 [id number] #### [facility] [address] [place] [id number], [facility] MONOS 12.9 % High 5.0-12.0 The [facility] Comment on above: Order Comment: No: D o not add to previous draw Performed By: #### 8 5499 #### [facility] [address] [place] [id number], [facility] Neutrophils/100 WBC (Bld) 70.6 % Normal 40.0-72.0 [facility] Comment on above: Order Comment: No: D o not add to previous draw Performed By: #### 8 [id number] #### [facility] [address] [place] [address], [place] Nucleated RBC/100 WBC (Bld) [Ratio] 0 % Normal 0-0 [facility] Comment on above: Order Comment: No: D o not add to previous draw Performed By: #### 8 [id number] #### [facility] [address] [place] [address], [place] PLAT ESTIMATE Normal Normal [facility] Comment on above: Order Comment: No: D o not add to previous draw Result Comment: EDTA smear shows platelet clumping, see platelet estimate Performed By: #### 8 [id number] #### [facility] [address] [place] [address], [place] RBC (Bld) [#/Vol] 3.76 10*6/uL Low 4.20-5.70 [facility] Comment on above: Order Comment: No: D o not add to previous draw Performed By: #### 8 [id number] #### [facility] [address] [place] [address], [place] WBC (Bld) [#/Vol] 8.30 10*3/uL Normal 4.00-10.60 [facility] Comment on above: Order Comment: No: D o not add to previous draw Performed By: #### 8 [id number] #### [facility] [address] [place] [address], [place] POC GLUCOSE LABon 07-20-2020 Glucose [Mass/Vol] 110 mg/dL High 70-100 The [facility] Comment on above: Performed By: #### 5 0103 #### [facility] [address] [place] [address], [place] Glucose [Mass/Vol] 124 mg/dL High 70-100 The [facility] Comment on above: Performed By: #### 5 0103 #### [facility] [address] [place] [address], [place] Glucose [Mass/Vol] 111 mg/dL High 70-100 The [facility] Comment on above: Performed By: #### 5 7307, [address] #### [place] [address], [facility] PORTABLE CHEST 1 VIEWon 06-28 PORTABLE CHEST 1 VIEW [facility] Department of Radiology [address] [place] [id number] Patient Name: RASHARD LYMAN : 1960 Sex: M Age: Race: White Pt. Location: [id number] Patient Status: I Ordered Date: 07/20/2020 6:00:00 [...] unchanged Electronically signed: Manuel Saldaña. Transcribed by: [email or web address], User Resident: Electronically Signed by: MANUEL SALDAÑA @ 07/20/2020 09:07 AM Normal [facility] Comment on above: Order Comment: Evalu ate for Effusion BASIC METABOLIC PANELon 03- Calcium [Mass/Vol] 8.4 mg/dL Low 8.6-10.3 [facility] Comment on above: Order Comment: No: D o not add to previous draw Performed By: #### 3 1943 #### [facility] [address] [place] [address], [place] Chloride [Moles/Vol] 104 mmol/L Normal 98-107 The [facility] Comment on above: Order Comment: No: D o not add to previous draw Performed By: #### 3 1943 #### [facility] [address] [place] [address], [place] CO2 [Moles/Vol] 24 mmol/L Normal 21-31 The [facility] Comment on above: Order Comment: No: D o not add to previous draw Performed By: #### 3 1943 #### [facility] [address] [place] [address], [place] Creatinine [Mass/Vol] 4.15 mg/dL High 0.70-1.30 The [facility] Comment on above: Order Comment: No: D o not add to previous draw Performed By: #### 3 1943 #### [facility] [address] [place] [address], [place] eGFR- 18 ml/min/1.73sq m Abnormal >60 The [facility] Comment on above: Order Comment: No: D o not add to previous draw Performed By: #### 3 1943 #### [facility] [address] [place] [address], [place] eGFR- non- 15 ml/min/1.73sq m Abnormal >60 The [facility] Comment on above: Order Comment: No: D o not add to previous draw Performed By: #### 3 1943 #### [facility] [address] [place] [address], [place] Glucose [Mass/Vol] 180 mg/dL High 70-100 The [facility] Comment on above: Order Comment: No: D o not add to previous draw Performed By: #### 3 1943 #### [facility] [address] [place] [address], [facility] Potassium [Moles/Vol] 4.4 mmol/L Normal 3.5-5.1 [facility] Comment on above: Order Comment: No: D o not add to previous draw Performed By: #### 3 1943 #### [facility] [address] [place] [address], [place] Sodium [Moles/Vol] 135 mmol/L Low 136-145 The [facility] Comment on above: Order Comment: No: D o not add to previous draw Performed By: #### 3 1943 #### [facility] [address] [place] [address], [facility] Urea nitrogen [Mass/Vol] 37 mg/dL High 7-25 [facility] Comment on above: Order Comment: No: D o not add to previous draw Performed By: #### 3 1943 #### [facility] [address] [place] [address], [facility] CBC COMPLETE BLOOD COUNTon 0 - Erythrocyte distribution width (RBC) [Ratio] 14.8 % Normal 11.5-15.0 [facility] Comment on above: Order Comment: No: D o not add to previous draw Performed By: #### 8 [id number] #### [facility] [address] [place] [address], [place] Hematocrit (Bld) [Volume fraction] 30.9 % Low 39.0-50.0 [facility] Comment on above: Order Comment: No: D o not add to previous draw Performed By: #### 8 5499 #### [facility] [address] [place] [address], [facility] Hemoglobin (Bld) [Mass/Vol] 9.0 g/dL Low 13.0-17.0 [facility] Comment on above: Order Comment: No: D o not add to previous draw Performed By: #### 8 5499 #### [facility] [address] [place] [address], [facility] MCH (RBC) [Entitic mass] 26.6 pg Low 27.0-33.0 [facility] Comment on above: Order Comment: No: D o not add to previous draw Performed By: #### 8 5499 #### [facility] [address] [place] [address], [facility] MCHC (RBC) [Mass/Vol] 29.1 g/dL Low 32.0-35.0 The [facility] Comment on above: Order Comment: No: D o not add to previous draw Performed By: #### 8 5499 #### [facility] [address] [facility] [place] [address], [facility] MCV (RBC) [Entitic vol] 91.4 fL Normal 82.0-98.0 The [facility] Comment on above: Order Comment: No: D o not add to previous draw Performed By: #### 8 5499 #### [facility] [address] [facility] [place] [address], [facility] Nucleated RBC/100 WBC (Bld) [Ratio] 0 % Normal 0-0 [facility] Comment on above: Order Comment: No: D o not add to previous draw Performed By: #### 8 5499 #### [facility] [address] [facility] [place] [address], [facility] PLAT CNT 279 10*3/uL Normal 150-400 The [facility] Comment on above: Order Comment: No: D o not add to previous draw Performed By: #### 8 5499 #### [facility] [address] [place] [address], [facility] RBC (Bld) [#/Vol] 3.38 10*6/uL Low 4.20-5.70 [facility] Comment on above: Order Comment: No: D o not add to previous draw Performed By: #### 8 5499 #### [facility] [address] [place] [address], [facility] WBC (Bld) [#/Vol] 6.73 10*3/uL Normal 4.00-10.60 [facility] Comment on above: Order Comment: No: D o not add to previous draw Performed By: #### 8 5499 #### [facility] [address] Operative Reporton Operative Report MR#: [id number] I [facility] Pt. Name: [facility] #: [id number] Discharge Date: Birthdate: 1960 OPERATIVE REPORT DATE OF SURGERY: 07/19/2020 SURGEON: Nima Wynne MD Operative Note Medical Thoracoscopy, lysis of adhesions, pleural biopsy Procedure Date: 07/19/2020 Procedure: Medical Thoracoscopy, pleural biopsies, lysis of adhesions, and chest tube placement Preoperative Diagnosis: Loculated pleural effusion Post-operative Diagnosis: same Surgeons: Nima Wynne MD Air Director: Davis Pham MD Type of Anesthesia: MAC [...] Wynne MD Date Trans: 07/19/2020 02:43 P/ [id number] cc: Jose Juarez D.O. [address] [facility] [address] Normal The [facility] POC GLUCOSE LABon 07-19-2020 Glucose [Mass/Vol] 219 mg/dL High 70-100 The [facility] Comment on above: Performed By: #### 5 9778, 92861 #### [facility] [address] [place] [address], [place] Glucose [Mass/Vol] 152 mg/dL High 70-100 The [facility] Comment on above: Performed By: #### 5 7307, 06074 #### [facility] [address] [facility] [place] [address], [facility] Glucose [Mass/Vol] 183 mg/dL High 70-100 The [facility] Comment on above: Performed By: #### 5 0103 #### [facility] [address] [facility] [place] [address], [facility] Glucose [Mass/Vol] 206 mg/dL High 70-100 The [facility] Comment on above: Performed By: #### 8 5499 ####[facility] [facility] [place] [address], [facility] Glucose [Mass/Vol] 179 mg/dL High 70-100 The [facility] Comment on above: Performed By: #### 5 0103 #### [facility] [address] [place] [address], [facility] PORTABLE CHEST 1 VIEWon 06-28 PORTABLE CHEST 1 VIEW [facility] Department of Radiology [address] [place] [id number] Patient Name: RASHARD LYMAN : 1960 Sex: M Age: Race: White Pt. Location: [address] [place] [address] Patient Status: I Ordered Date: 07/19/2020 2:20:00 [...] infiltration Electronically signed: Pedro Baldwin. Transcribed by: [email or web address], User Resident: PEDRO BALDWIN Electronically Signed by: PEDRO BALDWIN @ 07/19/2020 03:03 PM I personally read this/these film(s) with this resident Normal The [facility] Comment on above: Order Comment: Check Chest Tube Position BASIC METABOLIC PANELon 06-28 Calcium [Mass/Vol] 8.4 mg/dL Low 8.6-10.3 The [facility] Comment on above: Order Comment: No: D o not add to previous draw Performed By: #### 8 5499 #### [facility] [address] [place] [address], [place] Chloride [Moles/Vol] 105 mmol/L Normal 98-107 The [facility] Comment on above: Order Comment: No: D o not add to previous draw Performed By: #### 8 5499 #### [facility] [address] [place] [address], [place] CO2 [Moles/Vol] 25 mmol/L Normal 21-31 The [facility] Comment on above: Order Comment: No: D o not add to previous draw Performed By: #### 8 5499 #### [facility] [address] [place] [address], [place] Creatinine [Mass/Vol] 4.54 mg/dL High 0.70-1.30 The [facility] Comment on above: Order Comment: No: D o not add to previous draw Performed By: #### 8 5499 #### [facility] [address] [place] [address], [place] eGFR- 16 ml/min/1.73sq m Abnormal >60 The [facility] Comment on above: Order Comment: No: D o not add to previous draw Performed By: #### 8 5499 #### [facility] [address] [place] [address], [place] eGFR- non- 13 ml/min/1.73sq m Abnormal >60 The [facility] Comment on above: Order Comment: No: D o not add to previous draw Performed By: #### 8 5499 #### [facility] [address] [place] [address], [place] Glucose [Mass/Vol] 118 mg/dL High 70-100 The [facility] Comment on above: Order Comment: No: D o not add to previous draw Performed By: #### 8 5499 #### [facility] [address] [place] [address], [place] Potassium [Moles/Vol] 4.5 mmol/L Normal 3.5-5.1 The [facility] Comment on above: Order Comment: No: D o not add to previous draw Performed By: #### 8 5499 #### [facility] [address] [place] [address], [place] Sodium [Moles/Vol] 137 mmol/L Normal 136-145 The [facility] Comment on above: Order Comment: No: D o not add to previous draw Performed By: #### 8 5499 #### [facility] [address] Urea nitrogen [Mass/Vol] 40 mg/dL High 7-25 The [facility] Comment on above: Order Comment: No: D o not add to previous draw Performed By: #### 8 5499 #### [facility] [address] [place] [address], [facility] CBC W/DIFFon 07-18-2020 ABS IMM GRANS 0.1 10*3/uL Normal 0.0-0.2 The [facility] Comment on above: Order Comment: No: D o not add to previous draw Performed By: #### 8 5499 #### [facility] [address] [place] [address], [facility] ABS NEUTROPHILS 5.0 10*3/uL Normal 1.6-7.6 The [facility] Comment on above: Order Comment: No: D o not add to previous draw Performed By: #### 8 5499 #### [facility] [address] [place] [address], [facility] Basophils (Bld) [#/Vol] 0.0 10*3/uL Normal 0.0-0.2 The [facility] Comment on above: Order Comment: No: D o not add to previous draw Performed By: #### 8 5499 #### [facility] [address] [place] [address], [facility] Basophils/100 WBC (Bld) 0.4 % Normal 0.0-1.0 The [facility] Comment on above: Order Comment: No: D o not add to previous draw Performed By: #### 8 5499 #### [facility] [address] [place] [address], [facility] Eosinophils (Bld) [#/Vol] 0.6 10*3/uL High 0.0-0.5 The [facility] Comment on above: Order Comment: No: D o not add to previous draw Performed By: #### 8 5499 #### [facility] [address] [place] [address], [facility] Eosinophils/100 WBC (Bld) 6.8 % High 0.0-6.0 The [facility] Comment on above: Order Comment: No: D o not add to previous draw Performed By: #### 8 5499 #### [facility] [address] [place] [address], [facility] Erythrocyte distribution width (RBC) [Ratio] 14.8 % Normal 11.5-15.0 The [facility] Comment on above: Order Comment: No: D o not add to previous draw Performed By: #### 8 5499 #### [facility] [address] [facility] [place] [address], [facility] Hematocrit (Bld) [Volume fraction] 31.9 % Low 39.0-50.0 The [facility] Comment on above: Order Comment: No: D o not add to previous draw Performed By: #### 8 5499 #### [facility] [address] [facility] Hemoglobin (Bld) [Mass/Vol] 9.4 g/dL Low 13.0-17.0 [facility] Comment on above: Order Comment: No: D o not add to previous draw Performed By: #### 8 5499 #### [facility] [address] [facility] [place] [address], [facility] IMMATURE GRANS 1.7 % High 0.0-1.0 The [facility] Comment on above: Order Comment: No: D o not add to previous draw Performed By: #### 8 5499 #### [facility] [address] [place] [address], [facility] Lymphocytes (Bld) [#/Vol] 1.2 10*3/uL Normal 1.2-4.0 The [facility] Comment on above: Order Comment: No: D o not add to previous draw Performed By: #### 8 5499 #### [facility] [address] [place] [address], [facility] Lymphocytes/100 WBC (Bld) 14.8 % Low 20.0-45.0 The [facility] Comment on above: Order Comment: No: D o not add to previous draw Performed By: #### 8 5499 #### [facility] [address] [place] [id number], [facility] MCH (RBC) [Entitic mass] 26.9 pg Low 27.0-33.0 The [facility] Comment on above: Order Comment: No: D o not add to previous draw Performed By: #### 8 5499 #### [facility] [address] [place] [address], [facility] MCHC (RBC) [Mass/Vol] 29.5 g/dL Low 32.0-35.0 The [facility] Comment on above: Order Comment: No: D o not add to previous draw Performed By: #### 8 5499 #### [facility] [address] [place] [address], [facility] MCV (RBC) [Entitic vol] 91.1 fL Normal 82.0-98.0 The [facility] Comment on above: Order Comment: No: D o not add to previous draw Performed By: #### 8 5499 #### [facility] [address] [place] [address], [facility] Monocytes (Bld) [#/Vol] 1.1 10*3/uL High 0.1-1.0 The [facility] Comment on above: Order Comment: No: D o not add to previous draw Performed By: #### 8 5499 #### [facility] [address] [place] [id number], [facility] MONOS 13.4 % High 5.0-12.0 The [facility] Comment on above: Order Comment: No: D o not add to previous draw Performed By: #### 8 5499 #### [facility] [address] [place] [id number], [facility] Neutrophils/100 WBC (Bld) 62.9 % Normal 40.0-72.0 The [facility] Comment on above: Order Comment: No: D o not add to previous draw Performed By: #### 8 5499 #### [facility] [address] [place] [address], [facility] Nucleated RBC/100 WBC (Bld) [Ratio] 0 % Normal 0-0 The [facility] Comment on above: Order Comment: No: D o not add to previous draw Performed By: #### 8 [id number] #### [facility] [address] [place] [address], [facility] PLAT CNT 296 10*3/uL Normal 150-400 The [facility] Comment on above: Order Comment: No: D o not add to previous draw Performed By: #### 8 5499 #### [facility] [address] [place] [address], [facility] RBC (Bld) [#/Vol] 3.50 10*6/uL Low 4.20-5.70 The [facility] Comment on above: Order Comment: No: D o not add to previous draw Performed By: #### 8 [id number] #### [facility] [address] [place] [address], [facility] WBC (Bld) [#/Vol] 8.03 10*3/uL Normal 4.00-10.60 The [facility] Comment on above: Order Comment: No: D o not add to previous draw Performed By: #### 8 [id number] #### [facility] [address] [place] [address], [facility] POC GLUCOSE LABon 07-18-2020 Glucose [Mass/Vol] 192 mg/dL High 70-100 The [facility] Comment on above: Performed By: #### 5 7307, 95989 #### [facility] [address] [place] [address], [place] Glucose [Mass/Vol] 153 mg/dL High 70-100 The [facility] Comment on above: Performed By: #### 5 7307, 32286 #### [facility] [address] [place] [address], [place] Glucose [Mass/Vol] 80 mg/dL Normal 70-100 The [facility] Comment on above: Performed By: #### 5 7307, 34151 #### [facility] [address] [place] [address], [place] Glucose [Mass/Vol] 48 mg/dL Critically low 70-100 Th e [facility] Comment on above: Order Comment: Left Peural Effusion Performed By: #### 8 [id number] ####[facility] [place] [address], [place] Glucose [Mass/Vol] 120 mg/dL High 70-100 The [facility] Comment on above: Performed By: #### 5 0103 #### [facility] [address] [place] [address], [place] Glucose [Mass/Vol] 112 mg/dL High 70-100 The [facility] Comment on above: Performed By: #### 5 7307, 57247 #### [facility] [address] [place] [address], [place] POC SARS COV2 ANTIGEN NEGATI VEon 07-18-2020 POC SARS COV2 ANTIGEN NEG CANCELED Normal NEGATIVE [facility] Comment on above: Result Comment: The released value NEGATIVE was canceled by [email or web address] on 07/19/2020 07:11 Performed By: #### 3 1944 #### [facility] [address] [place] [address], [place] POC SARS COV2 ANTIGEN NEG Negative Normal NEGATIVE [facility] Comment on above: Result Comment: Nega tive [...] Accreditation. Performed By: #### 8 [id number] #### [facility] [address] [place] [address], [facility] BASIC METABOLIC PANELon 03-2 Calcium [Mass/Vol] 8.2 mg/dL Low 8.6-10.3 [facility] Comment on above: Order Comment: No: D o not add to previous draw Performed By: #### 3 1943 #### [facility] [address] [place] [address], [facility] Chloride [Moles/Vol] 101 mmol/L Normal 98-107 [facility] Comment on above: Order Comment: No: D o not add to previous draw Performed By: #### 3 1943 #### [facility] [address] [place] [address], [facility] CO2 [Moles/Vol] 25 mmol/L Normal 21-31 [facility] Comment on above: Order Comment: No: D o not add to previous draw Performed By: #### 3 1943 #### [facility] [address] [place] [id number], [facility] Creatinine [Mass/Vol] 3.64 mg/dL High 0.70-1.30 [facility] Comment on above: Order Comment: No: D o not add to previous draw Performed By: #### 3 1943 #### [facility] [address] [place] [address], [place] eGFR- 21 ml/min/1.73sq m Abnormal >60 [facility] Comment on above: Order Comment: No: D o not add to previous draw Performed By: #### 3 1943 #### [facility] [address] [place] [address], [place] eGFR- non- 17 ml/min/1.73sq m Abnormal >60 [facility] Comment on above: Order Comment: No: D o not add to previous draw Performed By: #### 3 1943 #### [facility] [address] [place] [address], [place] Glucose [Mass/Vol] 124 mg/dL High 70-100 [facility] Comment on above: Order Comment: No: D o not add to previous draw Performed By: #### 3 1943 #### [facility] [address] [place] [address], [place] Potassium [Moles/Vol] 4.3 mmol/L Normal 3.5-5.1 [facility] Comment on above: Order Comment: No: D o not add to previous draw Performed By: #### 3 1943 #### [facility] [address] [place] [address], [place] Sodium [Moles/Vol] 134 mmol/L Low 136-145 [facility] Comment on above: Order Comment: No: D o not add to previous draw Performed By: #### 3 1943 #### [facility] [address] [place] [address], [place] Urea nitrogen [Mass/Vol] 36 mg/dL High 7-25 [facility] Comment on above: Order Comment: No: D o not add to previous draw Performed By: #### 3 1943 #### [facility] [address] [place] [address], [facility] CBC W/DIFFon 07-17-2020 ABS IMM GRANS 0.2 10*3/uL Normal 0.0-0.2 [facility] Comment on above: Order Comment: No: D o not add to previous draw Performed By: #### 8 [id number] #### [facility] [address] [facility] [place] [address], [facility] ABS NEUTROPHILS 5.8 10*3/uL Normal 1.6-7.6 [facility] Comment on above: Order Comment: No: D o not add to previous draw Performed By: #### 8 [id number] #### [facility] [address] [facility] [place] [address], [facility] Basophils (Bld) [#/Vol] 0.1 10*3/uL Normal 0.0-0.2 [facility] Comment on above: Order Comment: No: D o not add to previous draw Performed By: #### 8 5499 #### [facility] [address] [facility] [place] [address], [facility] Basophils/100 WBC (Bld) 0.6 % Normal 0.0-1.0 [facility] Comment on above: Order Comment: No: D o not add to previous draw Performed By: #### 8 5499 #### [facility] [address] [facility] [place] [address], [facility] Eosinophils (Bld) [#/Vol] 0.6 10*3/uL High 0.0-0.5 [facility] Comment on above: Order Comment: No: D o not add to previous draw Performed By: #### 8 5499 #### [facility] [address] [facility] [place] [address], [facility] Eosinophils/100 WBC (Bld) 7.0 % High 0.0-6.0 [facility] Comment on above: Order Comment: No: D o not add to previous draw Performed By: #### 8 5499 #### [facility] [address] Erythrocyte distribution width (RBC) [Ratio] 14.8 % Normal 11.5-15.0 [facility] Comment on above: Order Comment: No: D o not add to previous draw Performed By: #### 8 5499 #### [facility] [address] [place] [address], [facility] Hematocrit (Bld) [Volume fraction] 30.0 % Low 39.0-50.0 [facility] Comment on above: Order Comment: No: D o not add to previous draw Performed By: #### 8 [id number] #### [facility] [address] [facility] [place] [address], [facility] Hemoglobin (Bld) [Mass/Vol] 9.2 g/dL Low 13.0-17.0 [facility] Comment on above: Order Comment: No: D o not add to previous draw Performed By: #### 8 5499 #### [facility] [address] [place] [address], [facility] IMMATURE GRANS 1.7 % High 0.0-1.0 [facility] Comment on above: Order Comment: No: D o not add to previous draw Performed By: #### 8 5499 #### [facility] [address] [facility] [place] [address], [facility] Lymphocytes (Bld) [#/Vol] 1.3 10*3/uL Normal 1.2-4.0 [facility] Comment on above: Order Comment: No: D o not add to previous draw Performed By: #### 8 5499 #### [facility] [address] [place] [id number], [facility] Lymphocytes/100 WBC (Bld) 14.3 % Low 20.0-45.0 [facility] Comment on above: Order Comment: No: D o not add to previous draw Performed By: #### 8 5499 #### [facility] [address] [place] [address], [facility] MCH (RBC) [Entitic mass] 27.3 pg Normal 27.0-33.0 [facility] Comment on above: Order Comment: No: D o not add to previous draw Performed By: #### 8 5499 #### [facility] [address] [place] [address], [facility] MCHC (RBC) [Mass/Vol] 30.7 g/dL Low 32.0-35.0 [facility] Comment on above: Order Comment: No: D o not add to previous draw Performed By: #### 8 5499 #### [facility] [address] [place] [address], [facility] MCV (RBC) [Entitic vol] 89.0 fL Normal 82.0-98.0 [facility] Comment on above: Order Comment: No: D o not add to previous draw Performed By: #### 8 [id number] #### [facility] [address] [place] [id number], [facility] Monocytes (Bld) [#/Vol] 1.0 10*3/uL Normal 0.1-1.0 [facility] Comment on above: Order Comment: No: D o not add to previous draw Performed By: #### 8 5499 #### [facility] [address] [place] [address], [facility] MONOS 10.9 % Normal 5.0-12.0 [facility] Comment on above: Order Comment: No: D o not add to previous draw Performed By: #### 8 5499 #### [facility] [address] [place] [address], [facility] Neutrophils/100 WBC (Bld) 65.5 % Normal 40.0-72.0 [facility] Comment on above: Order Comment: No: D o not add to previous draw Performed By: #### 8 [id number] #### [facility] [address] [place] [address], [facility] Nucleated RBC/100 WBC (Bld) [Ratio] 0 % Normal 0-0 [facility] Comment on above: Order Comment: No: D o not add to previous draw Performed By: #### 8 [id number] #### [facility] [address] [place] [address], [place] PLAT CNT 293 10*3/uL Normal 150-400 [facility] Comment on above: Order Comment: No: D o not add to previous draw Performed By: #### 8 5499 #### [facility] [address] [place] [address], [place] RBC (Bld) [#/Vol] 3.37 10*6/uL Low 4.20-5.70 [facility] Comment on above: Order Comment: No: D o not add to previous draw Performed By: #### 8 5499 #### [facility] [address] [place] [address], [place] WBC (Bld) [#/Vol] 8.86 10*3/uL Normal 4.00-10.60 [facility] Comment on above: Order Comment: No: D o not add to previous draw Performed By: #### 8 5499 #### [facility] [address] [place] [address], [place] POC GLUCOSE LABon 07-17-2020 Glucose [Mass/Vol] 101 mg/dL High 70-100 [facility] Comment on above: Performed By: #### 5 7307, 20106 #### [facility] [address] [place] [address], [place] Glucose [Mass/Vol] 76 mg/dL Normal 70-100 [facility] Comment on above: Performed By: #### 5 7307, 42073 #### [facility] [address] [place] [address], [place] Glucose [Mass/Vol] 75 mg/dL Normal 70-100 [facility] Comment on above: Performed By: #### 8 5499 ####[facility] [place] [address], [place] Glucose [Mass/Vol] 198 mg/dL High 70-100 [facility] Comment on above: Performed By: #### 8 5499 ####[facility] [place] [address], [place] Glucose [Mass/Vol] 205 mg/dL High 70-100 [facility] Comment on above: Performed By: #### 3 0318 #### [facility] [address] [place] [address], [place] Glucose [Mass/Vol] 187 mg/dL High 70-100 [facility] Comment on above: Performed By: #### 5 7307, 96245 #### [facility] [address] [place] [address], [place] Glucose [Mass/Vol] 131 mg/dL High 70-100 [facility] Comment on above: Performed By: #### 8 5499 #### [facility] [address] [place] [address], [place] Glucose [Mass/Vol] 75 mg/dL Normal 70-100 [facility] Comment on above: Performed By: #### 5 0103 #### [facility] [address] [place] [address], [place] Glucose [Mass/Vol] 69 mg/dL Low 70-100 [facility] Comment on above: Performed By: #### 8 5499 ####[facility] [place] [address], [place] BASIC METABOLIC PANELon 03-2 0-2020 Calcium [Mass/Vol] 8.4 mg/dL Low 8.6-10.3 [facility] Comment on above: Order Comment: No: D o not add to previous draw Performed By: #### 3 1944 #### [facility] [address] [place] [address], [place] Chloride [Moles/Vol] 105 mmol/L Normal 98-107 [facility] Comment on above: Order Comment: No: D o not add to previous draw Performed By: #### 3 1943 #### [facility] [address] [place] [address], [place] CO2 [Moles/Vol] 24 mmol/L Normal 21-31 [facility] Comment on above: Order Comment: No: D o not add to previous draw Performed By: #### 3 1943 #### [facility] [address] [place] [address], [place] Creatinine [Mass/Vol] 4.14 mg/dL High 0.70-1.30 [facility] Comment on above: Order Comment: No: D o not add to previous draw Performed By: #### 3 1943 #### [facility] [address] [place] [address], [place] eGFR- 18 ml/min/1.73sq m Abnormal >60 [facility] Comment on above: Order Comment: No: D o not add to previous draw Performed By: #### 3 1943 #### [facility] [address] [place] [address], [place] eGFR- non- 15 ml/min/1.73sq m Abnormal >60 [facility] Comment on above: Order Comment: No: D o not add to previous draw Performed By: #### 3 1943 #### [facility] [address] [place] [address], [place] Glucose [Mass/Vol] 127 mg/dL High 70-100 [facility] Comment on above: Order Comment: No: D o not add to previous draw Performed By: #### 3 1943 #### [facility] [address] [place] [address], [place] Potassium [Moles/Vol] 4.0 mmol/L Normal 3.5-5.1 [facility] Comment on above: Order Comment: No: D o not add to previous draw Performed By: #### 3 1943 #### [facility] [address] [place] [address], [facility] Sodium [Moles/Vol] 136 mmol/L Normal 136-145 [facility] Comment on above: Order Comment: No: D o not add to previous draw Performed By: #### 3 1943 #### [facility] [address] [place] [address], [facility] Urea nitrogen [Mass/Vol] 35 mg/dL High 7-25 [facility] Comment on above: Order Comment: No: D o not add to previous draw Performed By: #### 3 1943 #### [facility] [address] [place] [address], [facility] CBC COMPLETE BLOOD COUNTon 0 - Erythrocyte distribution width (RBC) [Ratio] 14.6 % Normal 11.5-15.0 [facility] Comment on above: Order Comment: No: D o not add to previous draw Performed By: #### 8 [id number] #### [facility] [address] [place] [address], [facility] Hematocrit (Bld) [Volume fraction] 31.8 % Low 39.0-50.0 [facility] Comment on above: Order Comment: No: D o not add to previous draw Performed By: #### 8 5499 #### [facility] [address] [place] [address], [facility] Hemoglobin (Bld) [Mass/Vol] 9.7 g/dL Low 13.0-17.0 [facility] Comment on above: Order Comment: No: D o not add to previous draw Performed By: #### 8 5499 #### [facility] [address] [place] [address], [place] MCH (RBC) [Entitic mass] 27.2 pg Normal 27.0-33.0 [facility] Comment on above: Order Comment: No: D o not add to previous draw Performed By: #### 8 5499 #### [facility] [address] [place] [id number], [facility] MCHC (RBC) [Mass/Vol] 30.5 g/dL Low 32.0-35.0 [facility] Comment on above: Order Comment: No: D o not add to previous draw Performed By: #### 8 5499 #### [facility] [address] [place] [id number], [facility] MCV (RBC) [Entitic vol] 89.3 fL Normal 82.0-98.0 [facility] Comment on above: Order Comment: No: D o not add to previous draw Performed By: #### 8 5499 #### [facility] [address] [place] [id number], [facility] Nucleated RBC/100 WBC (Bld) [Ratio] 0 % Normal 0-0 [facility] Comment on above: Order Comment: No: D o not add to previous draw Performed By: #### 8 5499 #### [facility] [address] [place] [id number], [facility] PLAT CNT 321 10*3/uL Normal 150-400 [facility] Comment on above: Order Comment: No: D o not add to previous draw Performed By: #### 8 5499 #### [facility] [address] [place] [address], [facility] RBC (Bld) [#/Vol] 3.56 10*6/uL Low 4.20-5.70 [facility] Comment on above: Order Comment: No: D o not add to previous draw Performed By: #### 8 5499 #### [facility] [address] [place] [id number], [place] WBC (Bld) [#/Vol] 8.88 10*3/uL Normal 4.00-10.60 [facility] Comment on above: Order Comment: No: D o not add to previous draw Performed By: #### 8 5499 #### [facility] [address] [place] [address], [place] POC GLUCOSE LABon 07-16-2020 Glucose [Mass/Vol] 94 mg/dL Normal 70-100 [facility] Comment on above: Performed By: #### 5 0103 #### [facility] [address] [place] [address], [place] Glucose [Mass/Vol] 62 mg/dL Low 70-100 [facility] Comment on above: Performed By: #### 5 7307, 20386 #### [facility] [address] [place] [address], [place] Glucose [Mass/Vol] 80 mg/dL Normal 70-100 [facility] Comment on above: Performed By: #### 5 7307, 88043 #### [facility] [address] [place] [address], [place] Glucose [Mass/Vol] 99 mg/dL Normal 70-100 [facility] Comment on above: Performed By: #### 8 5499 ####[facility] [place] [address], [place] Glucose [Mass/Vol] 203 mg/dL High 70-100 [facility] Comment on above: Performed By: #### 8 5499 ####[facility] [place] [address], [place] Glucose [Mass/Vol] 151 mg/dL High 70-100 [facility] Comment on above: Performed By: #### 5 7307, 27944 #### [facility] [address] [place] [address], [place] ANAon 07-15-2020 KILLIAN SCREEN <1:40 Normal <1:40,1:40 [facility] Comment on above: Order Comment: No: D o not add to previous draw Performed By: #### 8 5499 #### [facility] [address] [place] [address], [facility] ANCA IGG WITH REFLEX [id number] on 07-15-2020 ANCA <1:20 Normal <1:20 [facility] Comment on above: Order Comment: No: D [...] collagen vascular disease or arthritis. Performed By: [facility] [address] [place] [id number] Director Translational: Emi Campbell MD BASIC METABOLIC PANELon 06-27 Calcium [Mass/Vol] 8.5 mg/dL Low 8.6-10.3 [facility] Comment on above: Order Comment: No: D o not add to previous draw Performed By: #### 8 5499 #### [facility] [address] [place] [address], [place] Chloride [Moles/Vol] 103 mmol/L Normal 98-107 [facility] Comment on above: Order Comment: No: D o not add to previous draw Performed By: #### 8 5499 #### [facility] [address] [place] [address], [place] CO2 [Moles/Vol] 23 mmol/L Normal 21-31 [facility] Comment on above: Order Comment: No: D o not add to previous draw Performed By: #### 8 5499 #### [facility] [address] [place] [address], [place] Creatinine [Mass/Vol] 4.38 mg/dL High 0.70-1.30 [facility] Comment on above: Order Comment: No: D o not add to previous draw Performed By: #### 8 5499 #### [facility] [address] [place] [address], [place] eGFR- 17 ml/min/1.73sq m Abnormal >60 [facility] Comment on above: Order Comment: No: D o not add to previous draw Performed By: #### 8 5499 #### [facility] [address] [place] [address], [place] eGFR- non- 14 ml/min/1.73sq m Abnormal >60 [facility] Comment on above: Order Comment: No: D o not add to previous draw Performed By: #### 8 5499 #### [facility] [address] [place] [address], [place] Glucose [Mass/Vol] 154 mg/dL High 70-100 [facility] Comment on above: Order Comment: No: D o not add to previous draw Performed By: #### 8 5499 #### [facility] [address] [place] [address], [place] Potassium [Moles/Vol] 4.5 mmol/L Normal 3.5-5.1 [facility] Comment on above: Order Comment: No: D o not add to previous draw Performed By: #### 8 5499 #### [facility] [address] [place] [address], [place] Sodium [Moles/Vol] 135 mmol/L Low 136-145 [facility] Comment on above: Order Comment: No: D o not add to previous draw Performed By: #### 8 5499 #### [facility] [address] [place] [address], [place] Urea nitrogen [Mass/Vol] 32 mg/dL High 7-25 [facility] Comment on above: Order Comment: No: D o not add to previous draw Performed By: #### 8 5499 #### [facility] [address] [place] [address], [place] C REACTIVE PROTEINon 021 CRP [Mass/Vol] 138.0 mg/L High 0.0-7.0 [facility] Comment on above: Order Comment: FROM [id number] Performed By: #### 8 5499 #### [facility] [address] CBC W/DIFFon 07-15-2020 ABS IMM GRANS 0.1 10*3/uL Normal 0.0-0.2 [facility] Comment on above: Performed By: #### 5 0103 #### [facility] [address] [place] [address], [facility] ABS NEUTROPHILS 7.3 10*3/uL Normal 1.6-7.6 [facility] Comment on above: Performed By: #### 5 0103 #### [facility] [address] [place] [address], [facility] Basophils (Bld) [#/Vol] 0.0 10*3/uL Normal 0.0-0.2 [facility] Comment on above: Performed By: #### 5 0103 #### [facility] [address] [place] [address], [facility] Basophils/100 WBC (Bld) 0.3 % Normal 0.0-1.0 [facility] Comment on above: Performed By: #### 5 0103 #### [facility] [address] [place] [address], [facility] Eosinophils (Bld) [#/Vol] 0.5 10*3/uL Normal 0.0-0.5 [facility] Comment on above: Performed By: #### 5 0103 #### [facility] [address] [place] [address], [facility] Eosinophils/100 WBC (Bld) 5.1 % Normal 0.0-6.0 [facility] Comment on above: Performed By: #### 5 0103 #### [facility] [address] [place] [address], [place] Erythrocyte distribution width (RBC) [Ratio] 14.9 % Normal 11.5-15.0 [facility] Comment on above: Performed By: #### 5 0103 #### [facility] [address] Hematocrit (Bld) [Volume fraction] 33.0 % Low 39.0-50.0 [facility] Comment on above: Performed By: #### 5 0103 #### [facility] [address] Hemoglobin (Bld) [Mass/Vol] 9.9 g/dL Low 13.0-17.0 [facility] Comment on above: Performed By: #### 5 0103 #### [facility] [address] IMMATURE GRANS 1.4 % High 0.0-1.0 [facility] Comment on above: Performed By: #### 5 0103 #### [facility] [address] Lymphocytes (Bld) [#/Vol] 1.1 10*3/uL Low 1.2-4.0 [facility] Comment on above: Performed By: #### 5 3 #### [facility] [address] Lymphocytes/100 WBC (Bld) 11.0 % Low 20.0-45.0 [facility] Comment on above: Performed By: #### 5 0103 #### [facility] [address] [place] [address], [facility] MCH (RBC) [Entitic mass] 27.0 pg Normal 27.0-33.0 [facility] Comment on above: Performed By: #### 5 3 #### [facility] [address] [place] [address], [facility] MCHC (RBC) [Mass/Vol] 30.0 g/dL Low 32.0-35.0 [facility] Comment on above: Performed By: #### 5 0103 #### [facility] [address] [facility] [place] [address], [facility] MCV (RBC) [Entitic vol] 90.2 fL Normal 82.0-98.0 [facility] Comment on above: Performed By: #### 5 0103 #### [facility] [address] [place] [address], [facility] Monocytes (Bld) [#/Vol] 1.1 10*3/uL High 0.1-1.0 [facility] Comment on above: Performed By: #### 5 0103 #### [facility] [address] [place] [address], [facility] MONOS 10.9 % Normal 5.0-12.0 [facility] Comment on above: Performed By: #### 5 0103 #### [facility] [address] [place] [address], [facility] Neutrophils/100 WBC (Bld) 71.3 % Normal 40.0-72.0 [facility] Comment on above: Performed By: #### 5 3 #### [facility] [address] [place] [address], [facility] Nucleated RBC/100 WBC (Bld) [Ratio] 0 % Normal 0-0 [facility] Comment on above: Performed By: #### 5 0103 #### [facility] [address] [facility] [place] [address], [facility] PLAT CNT 317 10*3/uL Normal 150-400 [facility] Comment on above: Performed By: #### 5 3 #### [facility] [address] [facility] [place] [address], [facility] RBC (Bld) [#/Vol] 3.66 10*6/uL Low 4.20-5.70 [facility] Comment on above: Performed By: #### 5 0103 #### [facility] [address] [place] [address], [facility] WBC (Bld) [#/Vol] 10.23 10*3/uL Normal 4.00-10.60 [facility] Comment on above: Performed By: #### 5 0103 #### [facility] [address] [place] [address], [facility] COMPLEMENT 3on 07-15-2020 COMPLEMENT 3 108 mg/dL Normal 79-152 [facility] Comment on above: Order Comment: No: D o not add to previous draw Performed By: #### 8 [id number] #### [facility] [address] [place] [address], [facility] COMPLEMENT 4on 07-15-2020 COMPLEMENT 4 31 mg/dL Normal 16-38 [facility] Comment on above: Order Comment: No: D o not add to previous draw Performed By: #### 8 [id number] #### [facility] [address] GLOMR BASMT MEMBRon 07-16-19 21 GLOMR BASMT MBRN Negative Abnormal NEGATIVE [facility] Comment on above: Order Comment: No: D [...] testing. Performed By: #### 8 [id number] #### [facility] [address] [place] [address], [facility] POC GLUCOSE LABon 07-15-2020 Glucose [Mass/Vol] 107 mg/dL High 70-100 [facility] Comment on above: Performed By: #### 5 7307, [id number] #### [facility] [address] [facility] [place] [address], [facility] Glucose [Mass/Vol] 84 mg/dL Normal 70-100 [facility] Comment on above: Performed By: #### 5 0103 #### [facility] [address] [facility] [place] [address], [facility] Glucose [Mass/Vol] 164 mg/dL High 70-100 [facility] Comment on above: Performed By: #### 8 [id number] ####[facility] [facility] [place] [address], [place] Glucose [Mass/Vol] 141 mg/dL High 70-100 [facility] Comment on above: Performed By: #### 5 7307, 22083 #### [facility] [address] [facility] [place] [address], [facility] PORTABLE CHEST 1 VIEWon 06-27 PORTABLE CHEST 1 VIEW [facility] Department of Radiology [address] [place] [id number] Patient Name: RASHARD LYMAN : 1960 Sex: M Age: Race: White Pt. Location: [id number] Patient Status: I Ordered Date: 07/15/2020 7:00:00 [...] exam. Electronically signed: Nir Swartz. Transcribed by: [email or web address], User Resident: Electronically Signed by: NIR SWARTZ @ 07/15/2020 07:34 AM Normal [facility] Comment on above: Order Comment: evalu ate for Effusion *AFB CULTUREon 07-14-2020 *AFB CULTURE Clinical Report: (D) Specimen/Source: FLUID/PLEURAL FLUID Collected: 07/14/2020 13:03 Status: Final Last Updated: 08/26/2020 08:52 (1) Left Peural Effusion AFB (Final) No Acid Fast Bacilli Seen CULT RES (Final) No growth after 42 days of incubation Normal [facility] Comment on above: Order Comment: Left Peural Effusion Performed By: #### 8 [id number] #### [facility] [address] *ANAEROBIC CULTUREon 021 *ANAEROBIC CULTURE Clinical Report: (D) Specimen/Source: FLUID/PLEURAL FLUID Collected: 07/14/2020 13:03 Status: Final Last Updated: 07/19/2020 08:08 (1) Left Peural Effusion CULT RES (Final) No Anaerobes Isolated 5 Days Normal [facility] Comment on above: Order Comment: Left Peural Effusion Performed By: #### 8 [id number] #### [facility] [address] [place] [address], [facility] *BODY FLUID CULTUREon 2020 *BODY FLUID CULTURE Clinical Report: (D) Specimen/Source: FLUID/PLEURAL FLUID Collected: 07/14/2020 13:03 Status: Final Last Updated: 07/19/2020 07:53 (1) Left Peural Effusion GRAM (Final) Polys PRESENT No Bacteria Seen CYTOSPUN (Final) This Gram Stain was done on a cytocentrifuged specimen CULT RES (Final) No Growth Day 5 Normal [facility] Comment on above: Order Comment: Left Peural Effusion Performed By: #### 3 0318 #### [facility] [address] *FUNGAL CULTUREon 07-14-2020 *FUNGAL CULTURE Clinical Report: (D) Specimen/Source: FLUID/PLEURAL FLUID Collected: 07/14/2020 13:03 Status: Final Last Updated: 08/15/2020 08:41 (1) Left Peural Effusion FS (Final) No Yeast or Fungal Elements Seen CULT RES (Final) Culture negative for fungus Normal [facility] Comment on above: Order Comment: Left Peural Effusion Performed By: #### 8 [id number] #### [facility] [address] *VIRAL NON RESPIRATORY CULTU REon 07-14-2020 Bacteria identified Cx Nom (Unsp spec) Normal [facility] Comment on above: Order Comment: Left Peural [...] Linked Virus Inducible S. [place] Normal [facility] Comment on above: Order Comment: Left Peural Effusion Result Comment: Test Performed by [address] [id number] - Released 07/20/2020 14:10 Result changed by IF on 07/17/2020 14:17. The previous value was Test Performed by [address] [address] [phone].. Result changed by IF on 07/18/2020 12:17. The previous value was Test Performed by [address] [address] [phone].. Result changed by IF on 07/20/2020 14:10. The previous value was Test Performed by [address] [address] [phone].. REPORT STATUS FINAL 07/20/2020 Normal [facility] Comment on above: Order Comment: Left Peural Effusion Result Comment: Resu lt changed by IF on 07/20/2020 14:10. The previous value was Preliminary. APTTon 07-14-2020 aPTT Coag (Bld) [Time] 41.7 s High 25.0-35.0 [facility] Comment on above: Order Comment: No: D [...] PURPOSE. Performed By: #### 8 [id number] #### [facility] [address] [place] [address], [facility] aPTT Coag (Bld) [Time] 44.9 s High 25.0-35.0 [facility] Comment on above: Order Comment: No: D [...] THIS PURPOSE. Performed By: #### 5 7307, 32144 #### [facility] [address] [place] [address], [facility] BASIC METABOLIC PANELon 06-27 Calcium [Mass/Vol] 8.6 mg/dL Normal 8.6-10.3 [facility] Comment on above: Order Comment: No: D o not add to previous draw Performed By: #### 8 [id number] #### [facility] [address] [place] [id number], [facility] Chloride [Moles/Vol] 102 mmol/L Normal 98-107 [facility] Comment on above: Order Comment: No: D o not add to previous draw Performed By: #### 8 [id number] #### [facility] [address] [place] [id number], [facility] CO2 [Moles/Vol] 24 mmol/L Normal 21-31 [facility] Comment on above: Order Comment: No: D o not add to previous draw Performed By: #### 8 [id number] #### [facility] [address] [place] [id number], [facility] Creatinine [Mass/Vol] 3.44 mg/dL High 0.70-1.30 [facility] Comment on above: Order Comment: No: D o not add to previous draw Performed By: #### 8 [id number] #### [facility] [address] [place] [address], [facility] eGFR- 22 ml/min/1.73sq m Abnormal >60 [facility] Comment on above: Order Comment: No: D o not add to previous draw Performed By: #### 8 [id number] #### [facility] [address] [place] [address], [facility] eGFR- non- 18 ml/min/1.73sq m Abnormal >60 [facility] Comment on above: Order Comment: No: D o not add to previous draw Performed By: #### 8 [id number] #### [facility] [address] [place] [address], [facility] Glucose [Mass/Vol] 355 mg/dL High 70-100 [facility] Comment on above: Order Comment: No: D o not add to previous draw Performed By: #### 8 5499 #### [facility] [address] [place] [address], [facility] Potassium [Moles/Vol] 4.6 mmol/L Normal 3.5-5.1 [facility] Comment on above: Order Comment: No: D o not add to previous draw Performed By: #### 8 [id number] #### [facility] [address] [place] [address], [facility] Sodium [Moles/Vol] 133 mmol/L Low 136-145 [facility] Comment on above: Order Comment: No: D o not add to previous draw Performed By: #### 8 [id number] #### [facility] [address] [place] [address], [facility] Urea nitrogen [Mass/Vol] 27 mg/dL High 7-25 [facility] Comment on above: Order Comment: No: D o not add to previous draw Performed By: #### 8 [id number] #### [facility] [address] [place] [address], [facility] BNP (B-TYPE NATRIURETIC PEPT CIERRA)on 07-14-2020 Natriuretic peptide B (Bld) [Mass/Vol] 19 pg/mL Normal 0-100 [facility] Comment on above: Order Comment: Left Peural Effusion Result Comment: Give n the appropriate clinical setting a BNP result of >100 pg/mL indicates congestive heart failure. Performed By: #### 3 0318 #### [facility] [address] CBC COMPLETE BLOOD COUNTon 0 - Erythrocyte distribution width (RBC) [Ratio] 14.6 % Normal 11.5-15.0 [facility] Comment on above: Order Comment: No: D o not add to previous draw Performed By: #### 8 [id number] #### [facility] [address] [place] [address], [facility] Hematocrit (Bld) [Volume fraction] 35.3 % Low 39.0-50.0 [facility] Comment on above: Order Comment: No: D o not add to previous draw Performed By: #### 8 [id number] #### [facility] [address] [facility] [place] [address], [facility] Hemoglobin (Bld) [Mass/Vol] 11.1 g/dL Low 13.0-17.0 [facility] Comment on above: Order Comment: No: D o not add to previous draw Performed By: #### 8 [id number] #### [facility] [address] [place] [address], [facility] MCH (RBC) [Entitic mass] 27.5 pg Normal 27.0-33.0 [facility] Comment on above: Order Comment: No: D o not add to previous draw Performed By: #### 8 [id number] #### [facility] [address] [place] [address], [facility] MCHC (RBC) [Mass/Vol] 31.4 g/dL Low 32.0-35.0 [facility] Comment on above: Order Comment: No: D o not add to previous draw Performed By: #### 8 [id number] #### [facility] [address] [place] [address], [facility] MCV (RBC) [Entitic vol] 87.6 fL Normal 82.0-98.0 [facility] Comment on above: Order Comment: No: D o not add to previous draw Performed By: #### 8 [id number] #### [facility] [address] [facility] [place] [address], [facility] Nucleated RBC/100 WBC (Bld) [Ratio] 0 % Normal 0-0 [facility] Comment on above: Order Comment: No: D o not add to previous draw Performed By: #### 8 [id number] #### [facility] [address] [facility] [place] [address], [facility] PLAT CNT 325 10*3/uL Normal 150-400 [facility] Comment on above: Order Comment: No: D o not add to previous draw Performed By: #### 8 [id number] #### [facility] [address] [facility] [place] [address], [facility] RBC (Bld) [#/Vol] 4.03 10*6/uL Low 4.20-5.70 [facility] Comment on above: Order Comment: No: D o not add to previous draw Performed By: #### 8 [id number] #### [facility] [address] [facility] [place] [place] [address], [facility] WBC (Bld) [#/Vol] 12.59 10*3/uL High 4.00-10.60 [facility] Comment on above: Order Comment: No: D o not add to previous draw Performed By: #### 8 [id number] #### [facility] [address] [facility] [place] [address], [facility] CBC W/DIFFon 07-14-2020 ABS IMM GRANS 0.2 10*3/uL Normal 0.0-0.2 [facility] Comment on above: Order Comment: No: D o not add to previous draw Performed By: #### 8 [id number] #### [facility] [address] [facility] [place] [place] [address], [facility] ABS NEUTROPHILS 7.9 10*3/uL High 1.6-7.6 [facility] Comment on above: Order Comment: No: D o not add to previous draw Performed By: #### 8 [id number] #### [facility] [address] [place] [address], [facility] Basophils (Bld) [#/Vol] 0.1 10*3/uL Normal 0.0-0.2 [facility] Comment on above: Order Comment: No: D o not add to previous draw Performed By: #### 8 [id number] #### [facility] [address] [place] [address], [facility] Basophils/100 WBC (Bld) 0.5 % Normal 0.0-1.0 [facility] Comment on above: Order Comment: No: D o not add to previous draw Performed By: #### 8 [id number] #### [facility] [address] [place] [address], [facility] Eosinophils (Bld) [#/Vol] 0.5 10*3/uL Normal 0.0-0.5 [facility] Comment on above: Order Comment: No: D o not add to previous draw Performed By: #### 8 [id number] #### [facility] [address] [place] [address], [facility] Eosinophils/100 WBC (Bld) 4.3 % Normal 0.0-6.0 [facility] Comment on above: Order Comment: No: D o not add to previous draw Performed By: #### 8 [id number] #### [facility] [address] [place] [address], [facility] Erythrocyte distribution width (RBC) [Ratio] 14.6 % Normal 11.5-15.0 [facility] Comment on above: Order Comment: No: D o not add to previous draw Performed By: #### 8 [id number] #### [facility] [address] [place] [id number], [facility] Hematocrit (Bld) [Volume fraction] 34.2 % Low 39.0-50.0 [facility] Comment on above: Order Comment: No: D o not add to previous draw Performed By: #### 8 [id number] #### [facility] [address] [place] [address], [facility] Hemoglobin (Bld) [Mass/Vol] 10.3 g/dL Low 13.0-17.0 [facility] Comment on above: Order Comment: No: D o not add to previous draw Performed By: #### 8 [id number] #### [facility] [address] [place] [id number], [facility] IMMATURE GRANS 1.4 % High 0.0-1.0 [facility] Comment on above: Order Comment: No: D o not add to previous draw Performed By: #### 8 [id number] #### [facility] [address] [facility] [place] [address], [facility] Lymphocytes (Bld) [#/Vol] 1.3 10*3/uL Normal 1.2-4.0 [facility] Comment on above: Order Comment: No: D o not add to previous draw Performed By: #### 8 [id number] #### [facility] [address] [facility] [place] [address], [facility] Lymphocytes/100 WBC (Bld) 11.3 % Low 20.0-45.0 [facility] Comment on above: Order Comment: No: D o not add to previous draw Performed By: #### 8 [id number] #### [facility] [address] [facility] [place] [address], [facility] MCH (RBC) [Entitic mass] 27.0 pg Normal 27.0-33.0 [facility] Comment on above: Order Comment: No: D o not add to previous draw Performed By: #### 8 [id number] #### [facility] [address] [facility] [place] [id number], [facility] MCHC (RBC) [Mass/Vol] 30.1 g/dL Low 32.0-35.0 [facility] Comment on above: Order Comment: No: D o not add to previous draw Performed By: #### 8 [id number] #### [facility] [address] [facility] [place] [address], [facility] MCV (RBC) [Entitic vol] 89.5 fL Normal 82.0-98.0 [facility] Comment on above: Order Comment: No: D o not add to previous draw Performed By: #### 8 [id number] #### [facility] [address] [place] [address], [facility] Monocytes (Bld) [#/Vol] 1.4 10*3/uL High 0.1-1.0 [facility] Comment on above: Order Comment: No: D o not add to previous draw Performed By: #### 8 [id number] #### [facility] [address] [place] [address], [facility] MONOS 12.6 % High 5.0-12.0 [facility] Comment on above: Order Comment: No: D o not add to previous draw Performed By: #### 8 [id number] #### [facility] [address] [place] [address], [facility] Neutrophils/100 WBC (Bld) 69.9 % Normal 40.0-72.0 [facility] Comment on above: Order Comment: No: D o not add to previous draw Performed By: #### 8 [id number] #### [facility] [address] [place] [address], [facility] Nucleated RBC/100 WBC (Bld) [Ratio] 0 % Normal 0-0 [facility] Comment on above: Order Comment: No: D o not add to previous draw Performed By: #### 8 [id number] #### [facility] [address] [place] [id number], [place] PLAT CNT 292 10*3/uL Normal 150-400 [facility] Comment on above: Order Comment: No: D o not add to previous draw Performed By: #### 8 [id number] #### [facility] [address] [place] [id number], [facility] RBC (Bld) [#/Vol] 3.82 10*6/uL Low 4.20-5.70 [facility] Comment on above: Order Comment: No: D o not add to previous draw Performed By: #### 8 [id number] #### [facility] [address] [place] [id number], [facility] WBC (Bld) [#/Vol] 11.28 10*3/uL High 4.00-10.60 [facility] Comment on above: Order Comment: No: D o not add to previous draw Performed By: #### 8 [id number] #### [facility] [address] [place] [address], [facility] COMP METABOLIC PANELon 07-14 Albumin [Mass/Vol] 3.1 g/dL Low 3.5-5.7 [facility] Comment on above: Order Comment: No: D o not add to previous draw Performed By: #### 8 [id number] #### [facility] [address] [place] [address], [facility] ALKALINE PHOSPH 77 IU/L Normal 34-104 [facility] Comment on above: Order Comment: No: D o not add to previous draw Performed By: #### 8 [id number] #### [facility] [address] [place] [address], [place] ALT [Catalytic activity/Vol] 8 U/L Normal 7-52 [facility] Comment on above: Order Comment: No: D o not add to previous draw Performed By: #### 8 [id number] #### [facility] [address] [place] [address], [place] AST [Catalytic activity/Vol] 11 U/L Low 13-39 [facility] Comment on above: Order Comment: No: D o not add to previous draw Performed By: #### 8 [id number] #### [facility] [address] [place] [address], [place] Bilirubin [Mass/Vol] 0.3 mg/dL Normal 0.3-1.0 [facility] Comment on above: Order Comment: No: D o not add to previous draw Performed By: #### 8 [id number] #### [facility] [address] [place] [address], [place] Calcium [Mass/Vol] 8.8 mg/dL Normal 8.6-10.3 [facility] Comment on above: Order Comment: No: D o not add to previous draw Performed By: #### 8 [id number] #### [facility] [address] [place] [address], [place] Chloride [Moles/Vol] 101 mmol/L Normal 98-107 [facility] Comment on above: Order Comment: No: D o not add to previous draw Performed By: #### 8 [id number] #### [facility] [address] [place] [address], [place] CO2 [Moles/Vol] 22 mmol/L Normal 21-31 [facility] Comment on above: Order Comment: No: D o not add to previous draw Performed By: #### 8 [id number] #### [facility] [address] [place] [address], [place] Creatinine [Mass/Vol] 3.38 mg/dL High 0.70-1.30 [facility] Comment on above: Order Comment: No: D o not add to previous draw Performed By: #### 8 [id number] #### [facility] [address] [place] [address], [place] eGFR- 23 ml/min/1.73sq m Abnormal >60 [facility] Comment on above: Order Comment: No: D o not add to previous draw Performed By: #### 8 [id number] #### [facility] [address] [place] [address], [place] eGFR- non- 19 ml/min/1.73sq m Abnormal >60 [facility] Comment on above: Order Comment: No: D o not add to previous draw Performed By: #### 8 [id number] #### [facility] [address] [place] [address], [place] Glucose [Mass/Vol] 324 mg/dL High 70-100 [facility] Comment on above: Order Comment: No: D o not add to previous draw Performed By: #### 8 [id number] #### [facility] [address] [place] [address], [place] Potassium [Moles/Vol] 4.5 mmol/L Normal 3.5-5.1 [facility] Comment on above: Order Comment: No: D o not add to previous draw Performed By: #### 8 [id number] #### [facility] [address] [place] [address], [place] Protein [Mass/Vol] 6.7 g/dL Normal 6.0-8.3 [facility] Comment on above: Order Comment: No: D o not add to previous draw Performed By: #### 8 [id number] #### [facility] [address] [place] [address], [place] Sodium [Moles/Vol] 131 mmol/L Low 136-145 [facility] Comment on above: Order Comment: No: D o not add to previous draw Performed By: #### 8 [id number] #### [facility] [address] [place] [address], [place] Urea nitrogen [Mass/Vol] 27 mg/dL High 7-25 [facility] Comment on above: Order Comment: No: D o not add to previous draw Performed By: #### 8 [id number] #### [facility] [address] [place] [address], [place] CREATININE URINE RANDOMon Creatinine (U) [Mass/Vol] 101.0 mg/dL Normal [facility] Comment on above: Order Comment: No: D o not add to previous draw Result Comment: Ther e are no established reference values for random urine specimens Performed By: #### 8 [id number] #### [facility] [address] [place] [address], [facility] FLUID CELL COUNTon 1 Basophils/100 WBC (Bld) 1 % Normal [facility] Comment on above: Performed By: #### 8 [id number] #### [facility] [address] [place] [address], [place] Eosinophils/100 WBC (Bld) 11 % Normal [facility] Comment on above: Performed By: #### 8 [id number] #### [facility] [address] [place] [address], [facility] Lymphocytes/100 WBC (Bld) 49 % Normal [facility] Comment on above: Performed By: #### 8 [id number] #### [facility] [address] [place] [address], [facility] MESOTHELIAL 12 % Normal [facility] Comment on above: Performed By: #### 8 [id number] #### [facility] [address] [place] [address], [facility] OTHER F1 Diff done by cytospin Normal [facility] Comment on above: Performed By: #### 8 [id number] #### [facility] [address] [place] [address], [facility] OTHER F3 Checked by Evelyn Rodriguez M.D. Normal [facility] Comment on above: Result Comment: Resu lt changed by VHERR on 07/15/2020 13:33. The previous value was Preliminary report; verified report to follow. Performed By: #### 8 [id number] #### [facility] [address] [place] [address], [place] RBC 58068 RBC/uL Normal [facility] Comment on above: Performed By: #### 8 [id number] #### [facility] [address] [place] [address], [place] SEGS 27 % Normal [facility] Comment on above: Performed By: #### 8 [id number] #### [facility] [address] [place] [address], [place] SOURCE Thoracentesis Normal [facility] Comment on above: Performed By: #### 8 [id number] #### [facility] [address] [place] [address], [place] TOTAL VOLUME 1L Normal [facility] Comment on above: Performed By: #### 8 [id number] #### [facility] [address] [place] [address], [place] WBC 1762 WBC/uL Normal [facility] Comment on above: Result Comment: Some reference interval(s) and other method performance specifications have not been established for analytes on this body fluid. The test result must be integrated into the clinical context for interpretation. Performed By: #### 8 [id number] #### [facility] [address] [place] [address], [facility] GLUCOSE FLUID MISCon 021 Glucose [Mass/Vol] 326 mg/dL Normal [facility] Comment on above: Result Comment: The reference range and other method performance specifications have not been established for this test in fluids. the test result should be integrated into the clinical context for interpretation. Performed By: #### 3 1944 #### [facility] [address] [place] [address], [facility] HEMOGLOBIN A1Con 07-14-2020 Glucose [Moles/Vol] 295 mmol/L Normal [facility] Comment on above: Order Comment: Left Peural Effusion Performed By: #### 3 0318 #### [facility] [address] [place] [address], [place] HbA1c (Bld) [Mass fraction] 11.9 % High 4.0-6.0 [facility] Comment on above: Order Comment: Left Peural Effusion Performed By: #### 3 0318 #### [facility] [address] [place] [address], [place] HEPATITIS B SURFACE ANTIGEN QUALon 07-14-2020 HEP B SURF AG QUAL Non-Reactive Normal NONREACTIVE [facility] Comment on above: Order Comment: No: D o not add to previous draw Performed By: #### 3 1943 #### [facility] [address] [place] [address], [facility] HEPATITIS C ANTIBODYon 07-14 ANTI-HCV Non-Reactive Normal NONREACTIVE [facility] Comment on above: Order Comment: No: D o not add to previous draw Performed By: #### 3 1943 #### [facility] [address] [place] [address], [facility] LDH BLOODon 07-14-2020 LDH 176 Units/L Normal 140-271 [facility] Comment on above: Order Comment: Left Peural Effusion Performed By: #### 3 0318 #### [facility] [address] [place] [address], [facility] LDH 133 Units/L Low 140-271 [facility] Comment on above: Order Comment: No: D o not add to previous draw Performed By: #### 8 [id number] #### [facility] [address] [place] [address], [facility] LDH FLUIDon 07-14-2020 LDH 212 Units/L Normal [facility] Comment on above: Result Comment: The reference range and other method performance specifications have not been established for this test in fluids. the test result should be integrated into the clinical context for interpretation. Performed By: #### 3 1943 #### [facility] [address] [place] [address], [place] LIPID PROFILEon 07-14-2020 Cholesterol [Mass/Vol] 95 mg/dL Low 120-200 [facility] Comment on above: Order Comment: No: D o not add to previous draw Result Comment: CHOL ESTEROL REFERENCE RANGE: 20 YEARS AND OLDER CARDIOVASCULAR RISK Less than 200 mg/dl Low Risk 200 to 239 mg/dl Borderline Risk 240 mg/dl and greater High Risk Performed By: #### 8 [id number] #### [facility] [address] [place] [address], [place] Cholesterol in HDL [Mass/Vol] 36 mg/dL Normal 23-92 [facility] Comment on above: Order Comment: No: D o not add to previous draw Result Comment: Slig ht variation in normal range could be due to gender and/or age. HDL CHOLESTEROL REFERENCE RANGE: 20 years and older Cardiovascular Risk > or =60 mg/dL Desirable 40 TO 59 mg/dL Low Risk <40 mg/dL High Risk Performed By: #### 8 [id number] #### [facility] [address] [place] [address], [place] Cholesterol in LDL [Mass/Vol] 37 mg/dL Normal 0-130 [facility] Comment on above: Order Comment: No: D o not add to previous draw Result Comment: LDL IS A CALCULATION LDL IS ONLY VALID IF THE TRIG IS LESS THAN 400. Performed By: #### 8 [id number] #### [facility] [address] [place] [address], [place] Cholesterol.total/Ch olesterol in HDL [Mass ratio] 2.6 {ratio} Normal 0.0-4.5 [facility] Comment on above: Order Comment: No: D o not add to previous draw Performed By: #### 8 [id number] #### [facility] [address] [place] [address], [place] NON-HDL CHOLESTEROL 59 mg/dL Normal [facility] Comment on above: Order Comment: No: D o not add to previous draw Performed By: #### 8 [id number] #### [facility] [address] [place] [address], [place] Triglyceride [Mass/Vol] 109 mg/dL Normal 40-149 [facility] Comment on above: Order Comment: No: D o not add to previous draw Result Comment: TRIG LYCERIDE REFERENCE RANGE: 20 YEARS AND OLDER CARDIOVASCULAR RISK LESS THAN 150 mg/dl LOW RISK 150 TO 199 mg/dl BORDERLINE RISK 200 mg/dl AND GREATER HIGH RISK Performed By: #### 8 [id number] #### [facility] [address] [place] [address], [place] VLDL CHOL 22 mg/dL Normal 0-40 [facility] Comment on above: Order Comment: No: D o not add to previous draw Performed By: #### 8 [id number] #### [facility] [address] [place] [address], [place] MAGNESIUM BLOODon 07-14-2020 Magnesium [Mass/Vol] 2.1 mg/dL Normal 1.9-2.7 [facility] Comment on above: Order Comment: No: D o not add to previous draw Performed By: #### 8 [id number] #### [facility] [address] [place] [address], [place] Magnesium [Mass/Vol] 2.0 mg/dL Normal 1.9-2.7 [facility] Comment on above: Performed By: #### 8 [id number] #### [facility] [address] [place] [address], [place] PHOSPHORUS BLOODon Phosphate [Mass/Vol] 4.1 mg/dL Normal 2.5-5.0 [facility] Comment on above: Order Comment: No: D o not add to previous draw Performed By: #### 8 [id number] #### [facility] [address] [place] [address], [place] Phosphate [Mass/Vol] 4.0 mg/dL Normal 2.5-5.0 [facility] Comment on above: Performed By: #### 8 [id number] #### [facility] [address] [place] [address], [place] POC GLUCOSE LABon 07-14-2020 Glucose [Mass/Vol] 180 mg/dL High 70-100 [facility] Comment on above: Performed By: #### 8 [id number] ####[facility] [place] [address], [place] Glucose [Mass/Vol] 198 mg/dL High 70-100 [facility] Comment on above: Performed By: #### 5 7307, [id number] #### [facility] [address] [facility] [place] [address], [facility] Glucose [Mass/Vol] 265 mg/dL High 70-100 [facility] Comment on above: Performed By: #### 8 [id number] #### [facility] [address] [facility] [place] [address], [place] Glucose [Mass/Vol] 305 mg/dL High 70-100 [facility] Comment on above: Performed By: #### 5 7307, [id number] #### [facility] [address] [facility] [place] [address], [place] Glucose [Mass/Vol] 301 mg/dL High 70-100 [facility] Comment on above: Performed By: #### 5 0103 #### [facility] [address] [place] [address], [facility] PORTABLE CHEST 1 VIEWon 06-27 PORTABLE CHEST 1 VIEW [facility] Department of Radiology [address] [place] [id number] Patient Name: RASHARD LYMAN : 1960 Sex: M Age: Race: White Pt. Location: [address] [place] [address] Patient Status: I Ordered Date: 07/14/2020 1:40:00 [...] above Electronically signed: Patricia Damon. Transcribed by: [email or web address], User Resident: Electronically Signed by: PATRICIA DAMON @ 07/14/2020 03:24 PM Normal [facility] Comment on above: Order Comment: Evalu ate for Pneumothorax PORTABLE CHEST 1 VIEW [facility] Department of Radiology [address] [place] [id number] Patient Name: RASHARD LYMAN : 1960 Sex: M Age: Race: White Pt. Location: [id number] Patient Status: I Ordered Date: 07/13/2020 11:35:00 [...] reports Electronically signed: Valdemar Foster. Transcribed by: [email or web address], User Resident: SY [email or web address] Electronically Signed by: VALDEMAR FOSTER @ 07/14/2020 06:31 AM I personally read this/these film(s) with this resident Normal [facility] Comment on above: Order Comment: evalu ate for Effusion PROTEIN ELECT Truong 07-14-2020 Protein [Mass/Vol] 6.0 g/dL Normal 6.0-8.3 [facility] Comment on above: Performed By: #### 3 0318 #### [facility] [address] [place] [address], [place] PROTEIN ELECT Normal [facility] Comment on above: Result Comment: Decr eased albumin and elevated alpha 1 and 2 suggests acute inflammation. Performed By: #### 3 0318 #### [facility] [address] [place] [address], [place] PROTEIN ELECT URon PROTEIN ELECT Urine protein electrophoresis suggests a nonselective nephropathy. Normal [facility] Comment on above: Performed By: #### 3 1944 #### [facility] [address] [place] [address], [place] PROTEIN TOTAL BLOODon 2020 Protein [Mass/Vol] 6.7 g/dL Normal 6.0-8.3 [facility] Comment on above: Order Comment: Left Peural Effusion Performed By: #### 3 0318 #### [facility] [address] [facility]. [address] PROTHROMBIN TIMEon 1 INR Coag (PPP) [Relative time] 1.12 {INR} Normal 0.91-1.16 [facility] Comment on above: Order Comment: No: D [...] CHEST 1995;[id number]. Performed By: #### 5 7307, [id number] #### [facility] [address] [facility] [place] [address], [facility] PT Coag (PPP) [Time] 14.4 s Normal 12.3-14.8 [facility] Comment on above: Order Comment: No: D o not add to previous draw Result Comment: ALL RESULTS MUST BE INTERPRETED WITH RESPECT TO BLOOD DRAWING ARTIFACT OR DILUTION ERROR OF ANTICOAGULANT AT THE TIME OF SAMPLING. Performed By: #### 5 7307, 93986 #### [facility] [address] [facility] [place] [address], [facility] SEDIMENTATION RATEon 021 SED RATE 32 mm/hr High 0-10 [facility] Comment on above: Performed By: #### 8 [id number] #### [facility] [address] [place] [address], [facility] SODIUM URINE RANDOMon 2020 Sodium (U) [Moles/Vol] 59 mmol/L Normal [facility] Comment on above: Order Comment: No: D o not add to previous draw Result Comment: Ther e are no established reference values for random urine specimens Performed By: #### 8 [id number] #### [facility] [address] [place] [address], [facility] T PROT FLUIDon 07-14-2020 Protein [Mass/Vol] 3.6 g/dL Normal [facility] Comment on above: Result Comment: The reference range and other method performance specifications have not been established for this test in fluids. the test result should be integrated into the clinical context for interpretation. Performed By: #### 3 1944 #### [facility] [address] [place] [address], [facility] T PROT UR Loretta 07-14-2020 U TOTAL PROTEIN 859.0 mg/dL Normal [facility] Comment on above: Order Comment: No: D o not add to previous draw Result Comment: Ther e are no established reference values for random urine specimens Performed By: #### 8 [id number] #### [facility] [address] [place] [address], [facility] Performed By: #### 3 1944 #### [facility] [address] [place] [address], [facility] TROPONIN-Ion 07-14-2020 Troponin I.cardiac [Mass/Vol] 0.09 ng/mL High 0.00-0.04 [facility] Comment on above: Order Comment: No: D o not add to previous draw Result Comment: REFE RENCE RANGES: 0.00 - 0.04 ng/ml NORMAL 0.05 - 0.50 ng/ml INDETERMINATE > 0.50 ng/ml CONSISTENT WITH AN M.I. Performed By: #### 8 [id number] #### [facility] [address] [place] [address], [facility] Troponin I.cardiac [Mass/Vol] 0.07 ng/mL High 0.00-0.04 [facility] Comment on above: Order Comment: No: D o not add to previous draw Result Comment: REFE RENCE RANGES: 0.00 - 0.04 ng/ml NORMAL 0.05 - 0.50 ng/ml INDETERMINATE > 0.50 ng/ml CONSISTENT WITH AN M.I. Performed By: #### 8 [id number] #### [facility] [address] [facility] [place] [address], [facility] TSH3on 07-14-2020 TSH 3RD GENERATION 3.28 uIU/mL Normal 0.34-5.60 [facility] Comment on above: Order Comment: No: D o not add to previous draw Performed By: #### 8 [id number] #### [facility] [address] [place] [address], [facility] URIC ACID BLOODon 07-14-2020 Urate [Mass/Vol] 7.1 mg/dL Normal 4.4-7.6 [facility] Comment on above: Performed By: #### 8 [id number] #### [facility] [address] [place] [address], [facility] URINALYSIS REFLEXon 07-15-19 21 Appearance (U) SL CLOUDY Abnormal CLEAR [facility] Comment on above: Order Comment: Left Peural Effusion Performed By: #### 3 0318 #### [facility] [address] [place] [address], [facility] Bilirubin Ql (U) Negative Normal NEGATIVE [facility] Comment on above: Order Comment: Left Peural Effusion Performed By: #### 3 0318 #### [facility] [address] [place] [address], [place] Color (U) YELLOW Normal YELLOW [facility] Comment on above: Order Comment: Left Peural Effusion Performed By: #### 3 0318 #### [facility] [address] [place] [address], [place] EPIS FEW Normal FEW,OCC,NONE SEEN [facility] Comment on above: Order Comment: Left Peural Effusion Performed By: #### 3 0318 #### [facility] [address] [place] [address], [place] Glucose Ql (U) >=500 Abnormal NEGATIVE [facility] Comment on above: Order Comment: Left Peural Effusion Performed By: #### 3 0318 #### [facility] [address] [place] [address], [place] Hemoglobin Ql (U) TRACE Abnormal NEGATIVE [facility] Comment on above: Order Comment: Left Peural Effusion Performed By: #### 3 0318 #### [facility] [address] [place] [address], [facility] KETONE TRACE Abnormal NEGATIVE [facility] Comment on above: Order Comment: Left Peural Effusion Performed By: #### 3 0318 #### [facility] [address] [place] [address], [place] LEUK JACIEL Negative Normal NEGATIVE [facility] Comment on above: Order Comment: Left Peural Effusion Performed By: #### 3 0318 #### [facility] [address] [place] [address], [place] MUCUS THREADS OCC Abnormal NONE SEEN [facility] Comment on above: Order Comment: Left Peural Effusion Performed By: #### 3 0318 #### [facility] [address] [place] [address], [place] Nitrite Ql (U) Negative Normal NEGATIVE [facility] Comment on above: Order Comment: Left Peural Effusion Performed By: #### 3 0318 #### [facility] [address] [place] [address], [place] pH (U) 6.0 [pH] Normal 5.0-8.0 [facility] Comment on above: Order Comment: Left Peural Effusion Performed By: #### 3 0318 #### [facility] [address] [facility]. [address] Protein Ql (U) >=500 Abnormal NEGATIVE [facility] Comment on above: Order Comment: Left Peural Effusion Performed By: #### 3 0318 #### [facility] [address] [facility]. [address] RBC 0-2 Abnormal NONE SEEN [facility] Comment on above: Order Comment: Left Peural Effusion Performed By: #### 3 0318 #### [facility] [address] [facility]. [address] SPEC GRAV 1.017 Normal 1.015-1.020 [facility] Comment on above: Order Comment: Left Peural Effusion Performed By: #### 3 0318 #### [facility] [address] [facility]. [address] WBC UA 3-5 Abnormal NONE SEEN [facility] Comment on above: Order Comment: Left Peural Effusion Performed By: #### 3 0318 #### [facility] [address] Vital Signs Date Time Vital Sign Value Performing Clinician Facility 02-27-2024 11: Body height 193 cm Nima Lee MD Work Phone: [facility] 02-27-2024 11:25-040 Body mass index (BMI) [Ratio] 28 kg/m2 Nima Lee MD Work Phone: [facility] 02-27-2024 11:25040 Body temperature 97.11 [degF] Nima Lee MD Work Phone: [facility] 02-27-2024 11:25040 Body weight 104.33 kg Nima Lee MD Work Phone: [facility] 02-27-2024 11:25-0400 Diastolic blood pressure 80 mm[Hg] Nima Lee MD Work Phone: [employer] 02-27-2024 11:25-0400 Heart rate 78 /min [facility] 02-27-2024 11:25-0400 SaO2% (BldA) [Mass fraction] 98 % [facility] 02-27-2024 11:25-0400 Systolic blood pressure 130 mm[Hg] Nima Lee MD Work Phone: [employer] 03-21-2021 15:40-0500 Body height 193.04 cm Judahmani Jaki Other [employer] Other 03-21-2021 15:40-0500 Body mass index (BMI) [Ratio] 39.02 kg/m2 Kike Gomesangela Other [employer] Other 03-21-2021 15:40-0500 Body temperature 97.8 [degF] Kike Jaki Other [employer] Other 03-21-2021 15:40-0500 Body weight 145.42 kg Kike Jaki Other [employer] Other 03-21-2021 15:40-0500 Diastolic blood pressure 84 mm[Hg] Kike Jaki Other [employer] Other 03-21-2021 15:40-0500 Respiratory rate 18 /min Kike Jaki Other [employer] Other 03-21-2021 15:40-0500 SaO2% (BldA) [Mass fraction] 96 % Judahmani Jaki Other [employer] Other 03-21-2021 15:40-0500 Systolic blood pressure 137 mm[Hg] Kike Pollack Other [facility] [employer] Other 08-25-2020 12:24-0400 Heart rate 82 /min Jose Valone Work Phone: [facility] 08-25-2020 12:24-0400 Respiratory rate 20 /min Jose Valone Work Phone: [facility] 08-25-2020 11:17-0400 Body temperature 98.7 [degF] Jose Valone Work Phone: [facility] 08-25-2020 11:17-0400 Diastolic blood pressure 94 mm[Hg] Jose Valone Work Phone: [facility] 08-25-2020 11:17-0400 SaO2% (BldA) [Mass fraction] 96 % Jose Valone Work Phone: [facility] 08-25-2020 11:17-0400 Systolic blood pressure 183 mm[Hg] Jose Valone Work Phone: [facility] 08-25-2020 06:00-0400 Body weight 160.5 kg Jose Valone Work Phone: [facility] 08-19-2020 14:17-0400 Body height 193.04 cm Jose Valone Work Phone: [facility] 08-18-2020 21:22-0400 Body height 193.04 cm Jose Valone Work Phone: [facility] 08-18-2020 21:22-0400 Body mass index (BMI) [Ratio] 43.8 kg/m2 Jose Valone Work Phone: [facility] 08-18-2020 21:22-0400 Body temperature 97.6 [degF] Jose Valone Work Phone: [facility] 08-18-2020 21:22-0400 Body weight 163.3 kg Jose Juarez Work Phone: [facility] 08-18-2020 21:22-0400 Diastolic blood pressure 80 mm[Hg] Jose Juarez Work Phone: [facility] 08-18-2020 21:22-0400 Heart rate 105 /min Jose Juarez Work Phone: [facility] 08-18-2020 21:22-0400 Respiratory rate 18 /min Jose Juarez Work Phone: [facility] 08-18-2020 21:22-0400 SaO2% (BldA) [Mass fraction] 94 % Jose Juarez Work Phone: [facility] 08-18-2020 21:22-0400 Systolic blood pressure 160 mm[Hg] Jose Juarez Work Phone: [facility] Encounters Encounter Date Encounter Type Care Provider Facility Start: 10-26-2024 End: 10-26-2024 ambulatory Chino Mark Anthony [facility] Work Phone: Start: 10-26-2024 End: 10-26-2024 Departed Referred Chino Elliott DPJuma [facility] -[facility] Start: 08-28-2024 End: 08-28-2024 ambulatory Chino Hopson [facility] Work Phone: Start: 08-28-2024 End: 08-28-2024 Departed Referred Chino Elliott DPM Work Phone: [facility] Start: 02-27-2024 End: 02-27-2024 Office outpatient visit 25 minutes Nima Lee MD Work Phone: [facility] Surgery Comment on above: 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) Start: 02-17-2024 End: 02-17-2024 ambulatory JOSE JUAREZ [facility] Start: 01-20-2024 End: 01-20-2024 ambulatory JOSE JUAREZ [facility] Start: 12-16-2023 End: 12-16-2023 ambulatory JOSE JUAREZ [facility] Start: 11-19-2023 End: 11-19-2023 ambulatory JOSE JUAREZ [facility] Start: 10-23-2023 End: 10-23-2023 ambulatory JOSE JUAREZ [facility] Start: 09-03-2023 End: 09-03-2023 ambulatory JOSE JUAREZ [facility] Start: 07-31-2023 End: 07-31-2023 ambulatory JOSE JUAREZ [facility] Start: 07-02-2023 End: 07-02-2023 ambulatory JOSE JUAREZ [facility] Start: 06-04-2023 End: 06-04-2023 ambulatory JOSE Anmol JUAREZ [facility] Start: 05-31-2023 End: 06-01-2023 ambulatory JUANCARLOS LEHMAN [facility] Start: 05-06-2023 End: 05-06-2023 ambulatory JOSE JUAREZ [facility] Start: 04-19-2023 End: 04-19-2023 [facility] Start: 02-27-2023 End: 02-28-2023 ambulatory CHINO ELLIOTT [facility] Start: 09-11-2022 End: 09-12-2022 ambulatory CHINO ELLIOTT Facility:H1 Start: 08-28-2022 End: 08-29-2022 ambulatory CHINO ELLIOTT Facility:[facility]1 Start: 08-24-2022 End: 08-25-[address] JOSE JUAREZ Facility:[facility]1 Start: 08-20-2022 End: 08-21-[address] JOSE JUAREZ Facility:[facility]1 Start: 08-19-2022 Encounter for preprocedural cardiovascular examination CHINO ELLIOTT [facility] Start: 08-19-2022 Encounter for preprocedural laboratory examination CHINO ELLIOTT [facility] Start: 08-19-2022 Encounter for preprocedural respiratory examination CHINO ELLIOTT [facility] Start: 08-15-2022 End: 08-16-2022 ambulatory [...] 03-21-2021 End: 03-21-2021 ambulatory Kike Pollack Other [facility] Other Start: 03-21-2021 Office outpatient vi sit 25 minutes Kike Pollack [facility] Start: 10-20-2020 End: 10-21-2020 ambulatory UNKNOWN PROVIDER Facility:[facility] Start: 09-28-2020 End: 09-28-2020 Patient encounter procedure Jose Juarez Work Phone: -Respiratory Therapy Start: 09-06-2020 End: 09-06-2020 Patient encounter procedure Jose Juarez Work Phone: -Electrodiagnostics Start: 08-18-2020 End: 08-25-2020 Evaluation and management of inpatient Jose Juarez Work Phone: -[facility] Start: 07-13-2020 End: 07-22-2020 Evaluation and management of inpatient SAVANNAH REYNOLDS Facility:[facility] Procedures Date Procedure Procedure Detail [...] CAV WITH DRAIN DEV, PERC ENDO APPROACH [facility] Start: 07-19-2020 EXCISION OF LEFT PLE URA, PERC ENDO APPROACH, DIAGN [facility] Start: 07-19-2020 INTRODUCE OF OTH THE RAP SUBST INTO RESP TRACT, VIA OPENING [facility] Start: 07-19-2020 RELEASE LEFT PLEURA, PERCUTANEOUS ENDOSCOPIC APPROACH [facility] Start: 07-15-2020 DRAINAGE OF LEFT PLE URAL CAVITY, PERC APPROACH, DIAGN [facility] Start: 07-15-2020 DRAINAGE OF LEFT PLE URAL CAVITY, PERCUTANEOUS APPROACH [facility] Start: 07-14-2020 DRAINAGE OF LEFT PLE URAL CAVITY, PERCUTANEOUS APPROACH [facility] Start: 07-14-2020 ULTRASONOGRAPHY OF R IGHT AND LEFT HEART, TRANSESOPHAGEAL LOSR Laura CALLAWAY Plan of Treatment Date Care Activity Detail Author Start: 02-10-2027 DTaP,Tdap and Td Vac cines (2 - Td or Tdap) DTaP,Tdap and Td Vaccines (2 - Td or Tdap) [facility] Start: 10-26-2024 [facility] Start: 08-28-2024 [facility] Start: 05-06-2024 Urine screening for protein Urine Microalbumin [facility] Start: 02-27-2024 End: 02-26-2025 US.doppler Extremity arteries - bilateral for physiologic artery study Vas art doppler lwr bilat mult lev/PVR Vascular Ultrasound Routine Critical limb ischemia of left lower extremity with gangrene ([facility]) Expected: 02/27/2024, Expires: 02/26/2025 [employer] Work Phone: Comment on above: Expected: 02/27/2024 , Expires: 02/26/2025 Start: 12-29-2023 COVID-19 Vaccine ( season) COVID-19 Vaccine ( season) [facility] Start: 12-29-2023 Influenza vaccination Influenza Vacc ine [facility] Start: 08-18-2020 Bacteria identified in Blood by Culture Blood Culture [facility] Start: 02-04-2010 Administration of varicella zoster vaccine Zoster (Shingles) Vaccine (1 of 2) [facility] Start: 02-04-1978 Adult BMI Screening Adult BMI Screen ing [facility] Start: 02-04-1978 Diabetic foot examination Diabetic F oot Exam [facility] Start: 1972 Depression Screening Depression Scre ening [facility] Start: 1972 Tobacco Screening Tobacco Screening [facility] Start: 1960 Glaucoma screening Diabetic Op hthalmology Exam [facility] Patient referral [facility] Immunizations Immunization Date Immunization Notes Care Provider Fa cility 01-29-2020 influenza virus vacc ine, unspecified formulation Nima Lee MD Work Phone: [facility] 02-10-2017 tetanus toxoid, redu jennifer diphtheria toxoid, and acellular pertussis vaccine, adsorbed Nima Lee MD Work Phone: [facility] 05-27-2015 influenza, seasonal, injectable Kike Pollack Other [facility] 05-27-2015 pneumococcal polysaccharide vaccine, 23 valent Kike Pollack Other [facility] Payers Date Payer Category Payer Unknown [id number] 2017 [employer] Kendrick palmer Managed Care - Other [place] [id number] 1960 Unknown [id number] 2.16.840.1.131388.3.579. 2.647 1960 Unknown [id number] 2.16.840.1.510744.3.579. 2.732 1960 Unknown [id number] 2.16.840.1.294020.3.579. 2.593 1960 Unknown [id number] 2.16.840.1.565852.3.579. 2.593 1960 Unknown [id number] 2.16.840.1.909283.3.579. 2.593 1960 Unknown [id number] 2.16.840.1.001940.3.579. 2.593 1960 Unknown [id number] 2.16.840.1.843535.3.579. 2.593 1960 Unknown [id number] 2.16.840.1.947457.3.579. 2.593 1960 Unknown [id number] 2.16.840.1.070086.3.579. 2.593 1960 Unknown [id number] 2.16.840.1.871132.3.579. 2.593 1960 Unknown [id number] 2.16.840.1.630057.3.579. 2.593 1960 Unknown [id number] 2.16.840.1.177187.3.579. 2.593 1960 Unknown [id number] 2.16.840.1.868235.3.579. 2.593 1960 Unknown [id number] 2.16.840.1.103240.3.579. 2.593 1960 Unknown [id number] 2.16.840.1.375030.3.579. 2.593 1960 Unknown [id number] 2.16.840.1.427470.3.579. 2.593 1960 Unknown [id number] 2.16.840.1.380824.3.579. 2.593 1960 Unknown [id number] 2.16.840.1.257835.3.579. 2.593 1960 Unknown [id number] 2.16.840.1.721655.3.579. 2.593 1960 Unknown [id number] 2.16.840.1.890626.3.579. 2.593 1960 Unknown [id number] 2.16.840.1.164037.3.579. 2.593 1960 Unknown [id number] 2.16.840.1.142661.3.579. 2.593 1960 Unknown [id number] 2.16.840.1.637408.3.579. 2.593 1960 Unknown [id number] 2.16.840.1.492779.3.579. 2.593 1960 Unknown [id number] 2.16.840.1.734763.3.579. 2.593 1960 Unknown [id number] 2.16.840.1.239739.3.579. 2.593 1960 Unknown [id number] 2.16.840.1.227022.3.579. 2.593 1960 Unknown [id number] 2.16.840.1.722914.3.579. 2.593 1960 Unknown [id number] 2.16.840.1.873571.3.579. 2.593 1960 Unknown [id number] 2.16.840.1.065885.3.579. 2.593 1960 Unknown [id number] 2.16.840.1.758205.3.579. 2.593 1960 Unknown [id number] 2.16.840.1.934369.3.579. 2.593 1960 Unknown [id number] 2.16.840.1.628263.3.579. 2.593 1960 Unknown [id number] 2.16.840.1.054459.3.579. 2.593 1960 Unknown [id number] 2.16.840.1.080057.3.579. 2.593 1960 Unknown [id number] 2.16.840.1.739368.3.579. 2.593 1960 Unknown [id number] 2.16.840.1.393414.3.579. 2.593 1960 Unknown [id number] 2.16.840.1.084735.3.579. 2.593 1960 Unknown [id number] 2.16.840.1.901628.3.579. 2.593 1960 Unknown [id number] 2.16.840.1.600846.3.579. 2.593 1960 Unknown [id number] 2.16.840.1.565801.3.579. 2.593 1960 Unknown [id number] 2.16.840.1.886785.3.579. 2.593 1960 Unknown [id number] 2.16.840.1.837010.3.579. 2.593 1960 Unknown [id number] 2.16.840.1.591474.3.579. 2.593 1960 Unknown [id number] 2.16.840.1.214874.3.579. 2.593 1960 Unknown [id number] 2.16.840.1.192405.3.579. 2.593 1960 Unknown [id number] 2.16.840.1.329238.3.579. 2.1286 1960 Unknown [id number] 2.16.840.1.781253.3.579. 2.1286 1960 Unknown [id number] 2.16.840.1.222139.3.579. 2.1286 1960 Unknown [id number] 2.16.840.1.464515.3.579. 2.1286 1960 Unknown [id number] 2.16.840.1.278281.3.579. 2.1286 1960 Unknown [id number] 2.16.840.1.634933.3.579. 2.1286 1960 Unknown [id number] 2.16.840.1.984193.3.579. 2.1286 1960 Unknown [id number] 2.16.840.1.232478.3.579. 2.1286 1960 Unknown [id number] 2.16.840.1.418409.3.579. 2.1286 1960 Unknown [id number] 2.16.840.1.956794.3.579. 2.1286 1960 Unknown [id number] 2.16.840.1.334790.3.579. 2.1286 1959 Unknown [id number] Medicare Self Pay [id number] Medicare Medicare [id number] Self-pay Self Pay [id number] Social History Date Type Detail Facility Tobacco smoking stat [facility] Unknown if ever smoked [facility] Start: 1960 Sex Assigned At Male F [facility] Start: 08-18-2020 [facility] smoked [facility] Start: 08-22-2020 [facility] Never smoked tobacco (finding) [facility] Start: 06-09-2020 End: 02-27-2024 Sex Assigned At [place] [employer] [facility] Start: 02-10-2017 Tobacco smoking stat us [facility]IS Ex-smoker [facility] End: 02-11-2016 History of tobacco use Current smoker [facility] End: 02-11-2016 History of tobacco use Cigarette Smoker [facility] Start: 02-10-2017 Tobacco use and exposure Smokeless tobacco non-user [facility] Start: 02-27-2024 Alcoholic beverage intake Current non-drinker of alcohol (finding) [facility] Start: 06-09-2020 End: 02-27-2024 History of Social function [facility] Childcare Unknown [facility] Start: 1960 Sex assigned at Not on file P [facility] Start: 12-02-2014 End: 08-29-2024 Sex Male (finding) [facility] Goals Date Patient Goal Desired Activity /State Functional Status Date Assessment Result Facility 08-25-2020 Functional status Patient at Baseline [facility] Mental Status Date Assessment Result Facility 08-25-2020 Cognitive function Cognitive Sta tus Patient at Baseline [facility] Clinical Notes 07-15-2020 to 02-27-2024 Assessment & Plan Note - Nima Lee MD - 02/27/2024 11:44 AM EDTAssessment & Plan Note - Nima Lee MD - 02/27/2024 11:44 AM EDTMbernard Lee MD - 02/27/2024 11:20 AM EDT Note Date & Type Note Facility 02-27-2024 Evaluation + Plan note Associated Problem(s): Critical limb ischemia of left lower extremity with gangrene ([facility]) PVR [facility] 02-27-2024 Miscellaneous Notes Associate d Problem(s): Critical limb ischemia of left lower extremity with gangrene ([facility]) PVR documented in this encounter [facility] 02-27-2024 History of Presen t illness [...] musculoskeletal pain COPD (chronic obstructive pulmonary disease) ([facility]) Diabetes mellitus ([facility]) Fracture, clavicle History of MRSA (methicillin resistant Staphylococcus aureus) Neuropathy Renal failure Dialysis since 04/2014 Past Surgical History: Past Surgical History: Procedure Laterality Date APPENDECTOMY CHOLECYSTECTOMY DIALYSIS FISTULA CREATION Right arm INJECTION CAUDAL EPIDURAL WITH CATHETER, STEROID N/A 06/05/2019 Performed by Jefferson Bryant MD at [place] [place] PAIN TOE AMPUTATION Right 5th TONSILLECTOMY Social [...] Plan PVR 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 Diagnoses and all orders for this visit: Critical limb ischemia of left lower extremity with gangrene (CMS-HCC) Nima Lee MD, MISTY, RPVI, FSVS, FACS [facility] This note was created with the assistance of a speech recognition program. While intending to generate a timely document that accurately reflects the content of the visit, no guarantee can be provided that every grammatical or spelling mistake has been or will be identified or corrected. Thank you for your understanding. documented in this encounter [facility] 08-20-2022 Note PROCEDURE: XR FOOT L [...] authenticated by: PRISCA SANDERSON Date: 2022-08-20 13:00 [facility] 08-15-2022 Note EXAM: XR CHEST 2 [...] authenticated by: CHINO CABALLERO Date: 2022-08-15 15:06 [facility] 08-01-2022 Note PROCEDURE: XR FOOT L [...] authenticated by: JAMESON SALGUERO Date: 2022-08-01 07:49 [facility] 03-01-2022 Note CONSULTATION CONSULTATION DATE: 03/01/2022 [...] with certain activities such as standing, walking, economic development coordinator and 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 [facility] 03-01-2022 Note CONSULTATION PROCEDURE DATE: 03/01/2022 [...] pattern and patient tolerated procedure well. [facility] 12-22-2021 Note PROCEDURE: XR ANKLE LT [...] authenticated by: PRISCA SANDERSON Date: 2021-12-22 10:12 [facility] 12-22-2021 Note PROCEDURE: XR ANKLE LT [...] authenticated by: PRISCA SANDERSON Date: 2021-12-22 10:12 [facility] 12-22-2021 Note PROCEDURE: XR ANKLE LT [...] authenticated by: PRISCA SANDERSON Date: 2021-12-22 10:12 [facility] 12-22-2021 Note PROCEDURE: XR ANKLE LT 2V HISTORY: Pain ; left ankle external fixation application COMPARISON: None. FINDINGS: BONES:3 intraoperative spot fluoroscopic images demonstrate external fixation device surrounding the left ankle. IMPRESSION: External fixation device application. Electronically authenticated by: PRISCA SANDERSON Date: 2021-12-22 10:07 [facility] 12-12-2021 Note PROCEDURE: XR FOOT L [...] by: PRISCA SANDERSON Date: 2021-12-12 08:04 [facility] 11-30-2021 Note CONSULTATION The patient returns [...] in clinic in three months' time. [facility] 11-22-2021 Note CONSULTATION CONSULTATION DATE: 11/22/2021 [...] to the clinic to receive those. [facility] 11-14-2021 Note PROCEDURE: XR FOOT L [...] by: PRISCA SANDERSON Date: 2021-11-14 15:42 [facility] 11-07-2021 Note PROCEDURE: XR FOOT L [...] authenticated by: JAMESON SALGUERO Date: 2021-11-07 19:28 [facility] 03-21-2021 Evaluation note Encounter Date Diagnosis [...] takes midodrine as well as stated above. [facility] Other 03-27-2021 NoteMR#: [id number] I [facility] Pt. Name: Rashard Lyman Admitted: 07/13/2020 Discharged: [...] chest pain. Also, there is mention on [place] records of large inferior/lateral wall abnormality in [...] ON DISCHARGE: A (more content not included)...[facility]03-19-2021 NoteMR#: [id number] [facility] Pt. Name: Rashard Lyman Surgery Date: 07/14/2020 Room #: [id number] Date of : 1960 PROCEDURE NOTE ATTENDING: [...] Pham MD Date Trans: 07/15/2020 01:32 P/ [id number] cc: Nima Wynne MD [address] [place], [place] [id number] [place] [address] NoteMR#: [id number] [facility] Pt. Name: Rashard Lyman Surgery Date: 07/14/2020 Room #: [id number] Date of : 1960 PROCEDURE NOTE ATTENDING: Nima Wynne MD Procedure: Left sided US guided Thoracentesis Pre-procedure Diagnosis: Left pleural effusion Post-procedure Diagnosis: same as above Prior to Procedure: Informed Consent:The risks, benefits, indications, potential complications, and alternatives were explained to the patient/family and informed consent obtained Attending Staff: Nima Wynne Resident/Fellow/PUTTY AND PATCH WORKER: Davis Pham Indications: Nuar Munoz is 60 year old man with [...] Wynne MD Date Trans: 07/15/2020 12:53 P/ [id number] [facility] Diagnosis Onset Date Resolution Status Hyperglycemia acute Pneumonia acute Psoriasis acute 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 acute CKD (chronic kidney disease) stage 4, GFR 15-29 ml/min chronic COPD (chronic obstructive pulmonary disease) chronic 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 Anemia of renal disease acut e Atelectasis of left lung acu te Fibrothorax acute History of pleural effusion acute Metabolic acidosis acute Pericarditis acute Pleuritic chest pain acute Psoriasis acute 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 acute CKD (chronic kidney disease) stage 4, GFR 15-29 ml/min chronic COPD (chronic obstructive pulmonary disease) chronic 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 volunteer specialist vasiliy GERD (gastroesophageal reflux disease) chronic Hypertension chronic [id number] chronic Obesities, morbid chronic Peripheral vascular occlusive disease chronic 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 Diagnosis Critical limb ischemia of left lower extremity with gangrene ([facility])- Primary [facility] assessment information available [facility] Work Phone: History general Narrative [...] HIS LOWER BACK Hospitalization History see above [facility] Other Hospital Discharge instructions Additional Instructions You are scheduled for an outpatient follow up ECHOCARDIOGRAM in 2 weeks at [facility] to re-assess your pericardial effusions on [...] knee Educate on high risk fall precautions [facility] InstructionsNot on filedocumented in this encounterDetwiler Memorial Hospital SystemReason for referral (narrative)No reason for referral information availableTrumbull [facility]tr Work Phone: Assessments No Assessments [...] 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 GERD (gastroesophageal reflux disease) Hypertension [id number] Obesities, morbid Peripheral vascular occlusive disease Status [...] 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 GERD (gastroesophageal reflux disease) Hypertension [id number] Obesities, morbid Peripheral vascular occlusive disease Status [...] 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 GERD (gastroesophageal reflux disease) Hypertension [id number] Obesities, morbid Peripheral vascular occlusive disease Status [...] content) DATE CREATED AUTHOR 09/11/2020 [facility] DATE CREATED AUTHOR AUTHOR'S ORGANIZ ATION 10/21/2020 [facility] DATE CREATED AUTHOR AUTHOR'S ORGANIZ ATION 10/05/2022 [facility] DATE CREATED AUTHOR AUTHOR'S ORGANIZ ATION 06/03/2023 [facility] DATE CREATED AUTHOR AUTHOR'S ORGANIZ ATION 11/22/2023 [facility] DATE CREATED AUTHOR AUTHOR'S ORGANIZ ATION 02/18/2024 [facility] DATE CREATED AUTHOR AUTHOR'S ORGANIZ ATION 11/10/2024 [facility] Goals (unrecognized section and content) Goals may be documented in a n alternate sectionNo InformationNot on filedocumented as of this encounterGoals may be documented in an alternate sectionGoals may be documented in an alternate section REASON FOR VISIT (unrecogniz ed section and content) Reason 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 Non healing. Care Teams (unrecognized sec tion and content) Favor Maker Relationship Specialty Start Date End Date LarryJose Jr., DO [address] [place] [address] PCP - General Internal Medicine 02/10/17 Team [...] BE BASED ON THE PRIMARY CLINICAL RECORDS. [employer] provides no warranty or guarantee of the accuracy or completeness of information in this document.
== END 2024-12-15 14:47 | disposition home or self-care (01) ==
LOC: WC 14:46
PROVIDERS: PCP Internal Medicine; Visit Provider Physician Assistant
DX: E11.621 Type 2 diabetes mellitus with foot ulcer (principal); L97.425 Non-pressure chronic ulcer of left heel and midfoot with muscle involvement without evidence of necrosis; L97.515 Non-pressure chronic ulcer of other part of right foot with muscle involvement without evidence of necrosis
CPT/HCPCS: 11043; 29445

== ENCOUNTER 2024-12-22 21:30 | Emergency (ER) | payer BC, SELFPAY ==
[2024-12-22 21:33] VITALS: BP 130/72; PULSE 79; TEMP 36.6; O2SAT 98; BMI 28.0
--- OUTSIDE RECORDS SUMMARY | 2024-12-22 21:33 | XMS_ITS | Patient Health Record ---
Author Organization [facility] [place] Address [address] [place] [address] Care Team Providers Care Cloth Hand Name Role Phone William SIGALA, [place] Primary Care Provider Yanna flores Results Component Value Reference Range Notes CRP Reviewed date:10/26/2024 09:11:22 PM Interpretation: Performing Lab: Notes/Report: [facility] , C Reactive Protein 1.75 <=0.50 mg/dL Performing Lab: see note ML - [facility] LB PROF CHEM 8 (BAS METB) Reviewed date:10/26/2024 09:11:22 PM Interpretation: Performing Lab: Notes/Report: [facility] , Sodium 130 136-145 mmol/L Potassium [...] mg/dL Performing Lab: see note ML - [facility] LB MR ankle LT wo con Reviewed date:10/26/2024 09:11:22 PM Interpretation: Performing Lab: Notes/Report: Source Facility: [facility]-[address] [place] [address] [address] Magnetic Resonance Report Signed Patient: RASHARD LYMAN MR#: [id number] : 1960 Acct:[id number] Age/Sex: 63 / M ADM Date: 01/30/24 Loc: MRI Attending Dr: Chino Zambrano D.P.M. Ordering Physician: Chino Zambrano D.P.M. Date of Service: 01/30/24 Procedure(s): MR ankle LT wo con Accession Number(s): [id number] cc: Chino Zambrano D.P.M.; GABRIEL JUAREZ D.O. [place] [address] Patient Name: RASHARD LYMAN MRN: [id number] date: 1960 Sex: M Assigned Patient Location: MRI Current Patient Location: MRI Accession/Order Number: [id number] Exam Date: 01/30/2024 13:30 Report Date: 01/31/2024 [...] M.D. Signed By: 01/31/241710 DD/ 08 TD/TT: Rack Carrier: [place] [address] Magnetic Resonance Report Signed Patient: MOIRA LYMAN MR#: [id number] : 1960 Acct:[id number] Age/Sex: 63 / M ADM Date: 01/30/24 Loc: MRI Attending Dr: Chino Zambrano D.P.M. Ordering Physician: Chino Zambrano D.P.M. Date of Service: 01/30/24 Procedure(s): MR ank le LT wo con Accession Number(s): [id number] cc: Chino Zambrano D.P.M.; GABRIEL JUAREZ D.O. [place] [address] Patient Name: RASHARD LYMAN MRN: [id number] date: 1960 Sex: M Assigned Patient Location: MRI Current Patient Location: MRI Accession/Order Numb er: [id number] Exam Date: 13:30 Report Date: 01/31/2024 17:09 At the request of: CHINO ZAMBRANO Procedure: MR ankle LT wo con EXAM: MR ankle LT wo con. 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 COMPARISON: 01/21/2024 TECHNIQUE: MRI image [...] Lorene Duval M.D. Signed By: 01/31/241710 DD/ TD/TT: Rack Carrier: Fungus Stain Reviewed date:10/26/2024 09:11:22 PM Interpretation: Performing Lab: Notes/Report: Comment right hallux [facility] , Fungus Stain See Below For Report Fungus Stain Fungus Stain Please refer to the following specimen for additional lab results. Fungus Stain Fungus Stain SEE: [phone] Fungus S tain Performing Lab: see note SEE REPORT - Data Sme Id information not found for OBX-specific music video producer legend - [facility] Fungus (Mycology) Culture Reviewed date:10/26/2024 09:11:22 PM Interpretation: Performing Lab: Notes/Report: Comment right hallux [facility] , Fungus (Mycology) Culture See Below For Report Fungus (Mycology) Culture Please refer to the following specimen for additional lab results. Fungus (Mycology) Culture SEE: [id number] Fungus (Mycology) Culture Please refer to the following specimen for additional lab results. Performing Lab: see note SEE REPORT - Data Sme Id information not found for OBX-specific music video producer legend - [facility] LB Gram Stain [...] WILL FOLLOW Gram Stain Result Performed at: [facility] Gram Stain Result WILL FOLLOW Gram Stain Result [address] [place], [place] [id number] Gram Stain Result WILL FOLLOW Gram Stain Result Fish And Wildlife Technician: Phyllis Brian PhD, Phone: [phone] Gram Stain Result WILL FOLLOW Performing Lab: see note SEE REPORT - Data Sme Id information not found for OBX-specific music video producer legend LC - [facility] LB Tissue [...] PM Interpretation: Performing Lab: Notes/Report: Source Facility: [place] [address] [place] [address] XRay Report Signed Patient: RASHARD LYMAN MR#: [id number] : 1960 Acct:[id number] Age/Sex: 64 / M ADM Date: 08/26/24 Loc: MS 229-[address]: Ajay Vizcaino M.D. Ordering Physician: Chino Zambrano D.P.M. Date of Service: 08/28/24 Procedure(s): XR foot RT min 3V Accession Number(s): [id number] cc: Chino Zambrano D.P.M.; GABRIEL JUAREZ D.O. [place] [address] Patient Name: RASHARD LYMAN MRN: [id number] date: 1960 Sex: M Assigned Patient Location: SD Current Patient Location: SD Accession/Order Number: [id number] Exam Date: 08/28/2024 11:46 Report Date: 08/28/2024 [...] Jr., D.O. 08/28/2024 11:47 AM Dictation Location: [place] [address] Electronically authenticated by: [id number] Y Date: 08/28/2024 11:47 Dictated By: Clayton Cuevas M.D. Signed By: 08/28/24 1150 DD/ 1147 TD/TT: Rack Carrier: [place] [address] XRay Report Signed Patient: MOIRA LYMAN MR#: [id number] : 1960 Acct:[id number] Age/Sex: 64 / M ADM Date: 08/26/24 Loc: MS 229-[address]: Ajay Vizcaino M.D. Ordering Physician: Chino Zambrano D.P.M. Date of Service: 08/28/24 Procedure(s): XR jeanette t RT min 3V Accession Number(s): [id number] cc: Chino Zambrano D.P.M.; GABRIEL JUAREZ D.O. [place] [id number] Patient Name: RASHARD LYMAN MRN: [id number] date: 1960 Sex: M Assigned Patient Location: MS Current Patient Location: MS Accession/Order Numb er: [id number] Exam Date: 08/28/2024 11:46 Report Date: 08/28/2024 [...] Jr., D.O. 08/28/2024 11:47 AM Dictation Location: [place] [address] Electronically authenticated by: [id number] Y Date: 08/28/2024 11:47 Dictated By: Clayton Cuevas M.D. Signed By: 08/28/24 1150 DD/ 1147 TD/TT: Rack Carrier: MAGNESIUM Reviewed date:10/25/2024 01:27:08 PM Interpretation: Performing Lab: Notes/Report: [facility] , Magnesium 2.4 1.8-2.4 mg/dL Performing Lab: see note ML - [facility] LB Venous Blood Gas Reviewed date:10/25/2024 01:27:08 PM Interpretation: Performing Lab: Notes/Report: [facility] , pH VBG 7.250 7.330-7.430 PCO2 VBG 31.6 40.0-52.0 mmHg Performing Lab: see note ML - [facility] LB CBC AUTO DIFF Reviewed date:10/26/2024 09:11:22 PM Interpretation: Performing Lab: Notes/Report: [facility] , White Blood Count 12.5 4.0-11.0 10 [...] 3/uL Performing Lab: see note ML - [facility] LB CRP Reviewed date:10/26/2024 09:11:22 PM Interpretation: Performing Lab: Notes/Report: [facility] , C Reactive Protein 23.66 <=0.50 mg/dL Performing Lab: see note ML - [facility] LB MAGNESIUM Reviewed date:10/26/2024 09:11:22 PM Interpretation: Performing Lab: Notes/Report: [facility] , Magnesium 2.3 1.8-2.4 mg/dL Performing Lab: see note - [facility] LB PROF 14(COMP METB) Reviewed date:10/26/2024 09:11:22 PM Interpretation: Performing Lab: Notes/Report: [facility] , Sodium 135 136-145 mmol/L Potassium 4.7 [...] 0.3 Performing Lab: see note ML - [facility] LB Venous Blood Gas Reviewed date:10/26/2024 09:11:22 PM Interpretation: Performing Lab: Notes/Report: [facility] , pH VBG 7.296 7.330-7.430 PCO2 VBG 30.8 40.0-52.0 mmHg Performing Lab: see note - [facility] LB Tissue Culture Reviewed date:10/26/2024 09:11:22 PM Interpretation: Performing Lab: Notes/Report: [facility] , Tissue Culture See Below For Report Tissue Culture Please refer to the following specimen for additional lab results. Tissue Culture SEE: [phone] Tissue Culture Please refer to the following specimen for additional lab results. Performing Lab: see note SEE REPORT - Data Sme Id information not found for OBX-specific music video producer legend LC - [facility] LB Acid Fast Culture Reviewed date:10/26/2024 09:11:22 PM Interpretation: Performing Lab: Notes/Report: Comment right hallux [facility] , Acid Fast Culture See Below For Report Specimen has been received and testing has been initiated. Acid Fast Culture Acid Fast Culture Performed at: [facility] Specimen has been received and testing has been initiated. Acid Fast Culture Acid Fast Culture [address] [place], [place] [id number] Specimen has been received and testing has been initiated. Acid Fast Culture Acid Fast Culture Fish And Wildlife Technician: Phyllis Brian PhD, Phone: [phone] Specimen has been received and testing has been initiated. Acid Fast Culture Performing Lab: see note SEE REPORT - Data Sme Id information not found for OBX-specific music video producer legend LC - [facility] LB Acid Fast Smear Reviewed date:10/26/2024 09:11:22 PM Interpretation: Performing Lab: Notes/Report: Comment right hallux [facility] , Acid Fast Smear See Below For Report Acid Fast Smear Negative Performing Lab: see note - [facility] LB AFB Specimen Processing Reviewed date:10/26/2024 09:11:22 PM Interpretation: Performing Lab: Notes/Report: Comment right hallux [facility] , AFB Specimen Processing See Below For Report AFB Specimen Processing AFB Specimen Processing Tissue Grinding AFB Specimen Processing Performing Lab: see note - [facility] LB Erythrocyte Sedimentation Ra te Reviewed date:10/26/2024 09:11:22 PM Interpretation: Performing Lab: Notes/Report: [facility] , Erythrocyte Sedimentation Rate >130 <=20 mm/hr Performing Lab: see note - [facility] LB CBC AUTO DIFF Reviewed date:10/26/2024 09:11:22 PM Interpretation: Performing Lab: Notes/Report: [facility] , White Blood Count 11.3 4.0-11.0 [...] see note ML - [facility] LB XR ankle LT min 3V Reviewed date:10/26/2024 09:11:22 PM Interpretation: Performing Lab: Notes/Report: Source Facility: [facility]-[address] [place] [address] [place] [address] XRay Report Signed Patient: RASHARD LYMAN MR#: [id number] : 1960 Acct:[id number] Age/Sex: 63 / M ADM Date: 01/21/24 Loc: WC Attending Dr: Chino Zambrano D.P.M. Ordering Physician: Chino Zambrano D.P.M. Date of Service: 01/21/24 Procedure(s): XR ankle LT min 3V Accession Number(s): [id number] cc: Chino Zambrano D.P.M.; GABRIEL JUAREZ D.O. [place] [address] Patient Name: RASHARD LYMAN MRN: [id number] date: 1960 Sex: M Assigned Patient Location: Current Patient Location: Accession/Order Number: [id number] Exam Date: 01/21/2024 13:21 Report Date: 01/23/2024 [...] M.D. Signed By: 01/23/24647 DD/ 4 TD/TT: Rack Carrier: [place] [address] XRay Report Signed Patient: MOIRA LYMAN MR#: [id number] : 1960 Acct:[id number] Age/Sex: 63 / M ADM Date: 01/21/24 Loc: Attending Dr: Chino Zambrano D.P.M. Ordering Physician: Chino Zambrano D.P.M. Date of Service: 01/21/24 Procedure(s): XR ank le LT min 3V Accession Number(s): [id number] cc: Chino Zambrano D.P.M.; GABRIEL JUAREZ D.O. [place] [address] Patient Name: RASHARD LYMAN MRN: [facility]:[id number] date: 1960 Sex: M Assigned Patient Location: Current Patient Location: Accession/Order Numb er: [id number] Exam Date: 01/21/2024 13:21 Report Date: 01/23/2024 [...] Cadet M.D. Signed By: 01/23/2448 DD/ TD/TT: Rack Carrier: CBC AUTO DIFF Reviewed date:10/25/2024 01:27:08 PM Interpretation: Performing Lab: Notes/Report: [facility] , White Blood Count 12.2 4.0-11.0 [...] fL Performing Lab: see note ML - [facility] LB Manual Differential Reviewed date:10/25/2024 01:27:08 PM Interpretation: Performing Lab: Notes/Report: [facility] , Segmented Neutrophils % Manual 70.0 43.0-75.0 [...] 0.00-0.10 10 3/uL Performing Lab: see note [facility] LB PROF 14(COMP METB) Reviewed date:10/25/2024 01:27:08 PM Interpretation: Performing Lab: Notes/Report: [facility] , Sodium 131 136-145 mmol/L Potassium 4.5 [...] see note ML - [facility] LB MAGNESIUM Reviewed date:10/25/2024 01:27:08 PM Interpretation: Performing Lab: Notes/Report: [facility] , Magnesium 2.2 1.8-2.4 mg/dL Performing Lab: see note ML - [facility] LB CRP Reviewed date:10/25/2024 01:27:08 PM Interpretation: Performing Lab: Notes/Report: 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) Active confirmed Problem Contracture of joint of left ankle (disorder) (875193918675388) Contracture, left ankle (M24.572) Active confirmed Problem Hyperlipidemia (65494467) Hyperlipidemia (E78.5) Active confirmed Problem Venous insufficiency of leg (disorder) (032505075) Venous insufficiency (I87.2) Active confirmed Problem Chronic kidney disease (807906720) CKD (chronic kidney disease) (N18.9) Active confirmed Problem Chronic ulcer of foot (737959967) 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) Active confirmed Problem Acquired equinus deformity of left foot (M21.6X2) Active confirmed Problem Delayed healing of surgical wound (finding) (007501098) Delayed surgical wound healing, subsequent encounter (T81.89XD) Active confirmed Problem Delayed healing of surgical wound (finding) (632993803) Delayed surgical wound healing (T81.89XA) Active confirmed Problem Polyneuropathy due to type 2 diabetes mellitus (321873293) Diabetes mellitus with 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 (E11.42) Active confirmed Problem Foot ulcer due to type 2 diabetes mellitus (6224135906753) Diabetes mellitus with foot ulcer due to multiple causes (E11.621) Active confirmed Problem 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
--- OUTSIDE RECORDS SUMMARY | 2024-12-22 21:33 | XMS_ITS | Clinical Summary ---
Author Organization [employer] Address [id number] [place] [address] Care Team Providers Care Special Agent In Charge Name Role Phone Tod Charles DO, Charles [...] (05/28/2019): Added automatically from request for surgery [id number] Cellulitis of foot, left 09/29/2017 Other idiopathic [...] 12:06 PM 09/30/2017 8:03 PM Care Teams Special Agent In Charge Relationship Specialty Start Date End Date Jose Baron Jr., [facility] [place] [address] PCP - General Internal Medicine 02/10/17
--- OUTSIDE RECORDS SUMMARY | 2024-12-22 21:33 | XMS_ITS | Encounter Summary ---
Author Organization [facility] Address [address] [place] [address] Care Team Providers Care Security Attendant Name Role Phone Unavailable Primary Care Provider Unavailabl e Encounter Details Date Type Department Care Team (Late st Contact Info) Description 04/28/2021 Abstract PATIENT ACUITY SCORE Social History Tobacco Use Types Packs/Day Years Used Date Smoking Tobacco: Never Assessed Sex and Gender Information Value Date Recorded Sex Assigned at Not on file Legal Sex Male 9:41 AM EDT Gender Identity Not on file Sexual Orientation Not on file documented as of this encounter Plan of Treatment Not on file documented as of this encounter Visit Diagnoses Not on filedocumented in this encounter
--- OUTSIDE RECORDS SUMMARY | 2024-12-22 21:34 | XMS_ITS | Clinical Summary ---
Author Organization [facility] Address [address] [place] [place] [address] Care Team Providers Care Montessori Preschool Teacher Name Role Phone Jose Baron MD Primary Care Provider [phone] Social History Tobacco Use Types Packs/Day Years [...] Not on file Insurance BS Care Teams Montessori Preschool Teacher Relationship Specialty Start Date End Date Jose Baron MD [address] [place] [address] PCP - General Internal Medicine 09/07/24
--- OUTSIDE RECORDS SUMMARY | 2024-12-22 21:34 | XMS_ITS | Clinical Summary ---
Author Organization [facility] Address [address] [facility] [place] [address] Care Team Providers Care Recruitment Specialist Name Role Phone Unavailable Primary Care Provider Unavailabl e Source Comments The following information is NOT included in Care Everywhere downloads:Psychiatric notes, ECG results, Cardiac Rehab notes, Pulmonary Function notes, data from [employer] (includes but not limited toPregnancy data,audiograms, eye exams, pre-surgical evaluation notes, well-child exam data).[facility] Immunizations Immunization Administration Dates Next Due Influenza, injectable, high dose seasonal, trivalent, preservative free (NSQ=857) 01/29/2020 Influenza, injectable, triva lent, preservative (ELU=985) 05/27/2015 Pneumococcal polysaccharide 23 Valent (PPSV23) (CVX=33) 05/27/2015,03/07/2011 Tdap (WLB=111) 02/10/2017 Social History Tobacco Use Types Packs/Day Years Used Date Smoking Tobacco: Never Assessed Sex and Gender Information Value Date Recorded Sex Assigned at Not on file Legal Sex Male 9:41 AM EDT Gender Identity Not on file Sexual Orientation Not on file Plan of Treatment Health Maintenance Due Date Last Done Comments Colonoscopy 1960 HIV Test 02/04/1975 Hepatitis C Antibody 02/04/1978 Hepatitis A (HAV) Vaccine (o ptional start 19+ years) 02/04/1979 Cholesterol 02/04/1995 CRC Screening 02/04/2005 Cologuard (Stool DNA) 02/04/2005 FIT 02/04/2005 Shingles (RZV) Vaccine (1 of 2) 02/04/2010 Pneumococcal Vaccine(s) (50+ yrs) (2 of 2 - PCV) 05/27/2016 05/27/2015, 03/07/2011 Hepatitis B (HBV) Vaccine (o ptional start 60+ years) 2020 COVID-19 Vaccine (3 - 2023- season) 2023, 10/03/2020 Influenza Vaccine (#1) 2025 01/29/2020, 2015 Tetanus (Td or Tdap) Booster 02/10/2027 02/10/2017 RSV vaccine (adult) (1 - 1-d ose 75+ series) 02/04/2035 Tdap Booster Completed 02/10/2017 Insurance SP/UNINSURED on file
--- OUTSIDE RECORDS SUMMARY | 2024-12-22 21:34 | XMS_ITS | Encounter Summary ---
Author Organization [facility] Address [address] [place] [address] Care Team Providers Care Psychiatric Tech Name Role Phone Jose Baron MD Primary Care Provider [phone] Encounter Details Date Type Department Care Team (Late st Contact Info) Description 11/19/2023 Clinisync Result Encounter [facility] External Department Unsolicited Ajay Archer MD [address] [place] [id number] Social History Tobacco Use Types Packs/Day Years [...] EDT Narrative 11/19/2023 5:27 PM EDT The [address] [address] Ultrasound Report Signed Patient: RASHARD LYMAN MR#: [id number] : 1960 Acct:[id number] Age/Sex: 63 / M ADM Date: 11/19/23 Loc: US Attending Dr: Ajay Archer M.D. Ordering Physician: Ajay Archer M.D. Date of Service: 11/19/23 Procedure(s): US venous doppler LE LT Accession Number(s): [id number] cc: Imer Zambrano D.P.M.; Ajay Archer M.D. [address] [address] Patient Name: RASHARD LYMAN MRN: [id number] date: 1960 Sex: M Assigned Patient Location: US Current Patient Location: US Accession/Order Number: [id number] Exam Date: 11/19/2023 16:06 Report Date: 11/19/2023 [...] M.D. Signed By: 11/19/231726 DD/ 23 TD/TT: Machine Feed Operator: Procedure Note Radiology, Radiologist, MD - 11/19/[address] [address] Ultrasound Report Signed Patient: RASHARD LYMANMR#: [id number] : 1960Acct:[id number] Age/Sex: 63 / MADM Date: 11/19/23 Loc: US Attending Dr: Ajay Archer M.D. Ordering Physician: Ajay Archer M.D. Date of Service: 11/19/23 Procedure(s): US venous doppler LE LT Accession Number(s): [id number] cc: Imer Zambrano D.P.M.; Ajay Archer M.D. [place] [id number] Patient Name: RASHARD LYMAN MRN: [id number] date: 1960 Sex: M Assigned Patient Location: US Current Patient Location: US Accession/Order Number: [id number] Exam Date: 11/19/2023 16:06 Report Date: 11/19/2023 [...] Venegas M.D. Signed By:11/19/231726 DD/ 23 TD/TT: Machine Feed Operator: Ajay Archer MD [facility] Final Result documented in this encounter Visit Diagnoses Not on filedocumented in this encounter Care Teams Psychiatric Tech Relationship Specialty Start Date End Date Jose Baron MD [facility] [place] [id number] PCP - General Internal Medicine 09/07/24 documented as of this encounter
--- OUTSIDE RECORDS SUMMARY | 2024-12-22 21:34 | XMS_ITS | Clinical Summary ---
Author Organization [facility] Address [address] [place] [address] Care Team Providers Care Supervisor Forming Department Name Role Phone Unavailable Primary Care Provider [...] Most Recently Relevant to Health Maintenance Insurance [facility]
--- OUTSIDE RECORDS SUMMARY | 2024-12-22 21:37 | XMS_ITS | CCD ---
Author Organization [facility] Care Team Providers Care Spread Cutter Name Role Phone Jose Juarez Primary Care Provider [phone] Eugene Morel Admit Provider [phone] Eugene Morel Attending Provider Gordon Ewing Attending Provider Patria Cheung Attending Provider SAVANNAH REYNOLDS Admitting Unavailable SAVANNAH REYNOLDS Attending Unavailable JOSE JUAREZ Primary Care Unavailable JOSE JUAREZ Referring Unavailable [place] Procedure Practitioner Unavailab TRISHA Ozuna Surgeon Unavailable NIMA WYNNE Surgeon Unavailable [place] Procedure Practitioner Unavailab Jose Andres Primary Care Provider Eugene Morel Admit Provider [phone] Gordon Ewing Attending Provider Patria Cheung Attending Provider [phone] Latrice Lehman Attending Provider [phone] PROVIDER, UNKNOWN Attending Unavailable PROVIDER, UNKNOWN [...] HIGHLANDER, CHINO Hopson Admitting Unavailable HIGHLANDER, CHINO oHpson Attending Unavailable VALONE, DR RIOS Primary Care [...] source) exenatide Drug Allergy 07-14-19 21 [facility] Repository NSAIDs (5 sources) celecoxib; Translations: [Celebrex] Drug Allergy 07-14-19 21 Difficulty Breathing [facility] Repository Phenolphthalein (1 source) Phenolphthalein Drug Allergy 07-14-19 21 [facility] Repository (7 sources) celecoxib; Translations: [celecoxib] Drug Allergy 07-21-19 17 Difficulty Breathing, bad for kidney, Difficulty Breathing, bad for kidney [facility] Repository (6 sources) Aspirin; Translations: [ASPIRIN] Drug Allergy 07-21-19 17 bad for kidney [facility] Repository (3 sources) Amoxicillin Drug Allergy 07-09-19 20 [facility] Repository (1 source) celecoxib Drug Allergy 07-09-19 20 [facility] Repository (1 source) exenatide Drug Allergy 07-09-19 20 [facility] Repository (1 source) Phenolphthalein Drug Allergy 07-09-19 20 [facility] Repository (3 sources) exenatide; Translations: [EXENATIDE] Drug Allergy 07-21-19 17 [facility] Repository (3 sources) HYLAN G-F 20; Translations: [HYLAN G-F 20] Propensity to adverse reactions to drug (disorder) 07-21-19 17 [facility] Repository (2 sources) exenatide Drug Allergy 09-14-19 [facility] (2 sources) OXcarbazepine Drug Allergy 09-14-19 23 [facility] Medications Current Medications Medication Drug Class(es) Dates [...] 08-18-2020 take 1 capsule by mo [facility] once daily B Complex With C 20-Folic [...] lower limb ischemia ; Translations: [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 Scanned copy available in EMR. PERFORMED BY: [place] [address] PATHOLOGIST PULP GRINDER FEEDER CARLOS BIRMINGHAM M.D. Performed By: #### P ATH TO [facility] #### [address] No Panel InformationOrdered By: Chino Elliott on 08-28-2024 Miscellaneous Pathology Test See comment [facility] Comment on above: See report. Scanned copy available in EMR. Pathology Request for Lab Co rpon 08-28-2024 Pathology Request for Lab Truman Normal [facility] Comment on above: Order Comment: RIGHT HALLUX Result Comment: See report. Scanned copy available in EMR. PERFORMED BY: [place] [address] PATHOLOGIST PULP GRINDER FEEDER NIMA MCCLELLAN M.D. Performed By: #### P ATH TO [facility] #### [facility] [address] [place] [address] BLOOD UREA NITROGENon 2023 Urea nitrogen [Mass/Vol] 40 mg/dL High 5-27 [facility] Comment on above: Performed By: #### E LEC, 3094-0, WAGON WASHER, 06639-1 #### [facility] ([id number]) [address] [facility] [place] [address] #### 89060-5, HA1C #### [facility] ([id number]) [address] [facility], [address] [place] [address] CBC AND AUTO DIFFon 02-17-20 ABSOLUTE BASOPHIL 0.0 X10E9/L Normal 0.0-0.2 [facility] Comment on above: Performed By: #### U A #### [facility] ([id number]) [address] [place] [address]1329 ABSOLUTE NEUTROPHIL 5.2 X10E9/L Normal 1.5-6.6 [facility] Comment on above: Performed By: #### U A #### [facility] ([id number]) [address] [place] [address] 89693 Basophils/100 WBC (Bld) 0.6 % Normal [facility] Comment on above: Performed By: #### U A #### [facility] ([id number]) [address] [place] [address] 76875 Eosinophils (Bld) [#/Vol] 0.6 10*3/uL High 0.0-0.4 [facility] Comment on above: Performed By: #### U A #### [facility] ([id number]) [address] [place] [address] 94874 Eosinophils/100 WBC (Bld) 6.5 % Normal [facility] Comment on above: Performed By: #### U A #### [facility] ([id number]) [address] [place] [address] 43650 Erythrocyte distribution width (RBC) [Ratio] 14.2 % Normal 11.5-15.0 [facility] Comment on above: Performed By: #### U A #### [facility] ([id number]) [address] [place] [address] 24470 Hematocrit (Bld) [Volume fraction] 37.5 % Low 39-49 [facility] Comment on above: Performed By: #### U A #### [facility] ([id number]) [address] [place] [address] 15634 Hemoglobin (Bld) [Mass/Vol] 12.3 g/dL Low 13.0-17.0 [facility] Comment on above: Performed By: #### U A #### [facility] ([id number]) [address] [place] [address] 57381 Lymphocytes (Bld) [#/Vol] 1.9 10*3/uL Normal 1.0-3.5 [facility] Comment on above: Performed By: #### U A #### [facility] ([id number]) [address] [place] [address] 36685 Lymphocytes/100 WBC (Bld) 21.4 % Normal [facility] Comment on above: Performed By: #### U A #### [facility] ([id number]) [address] [place] [address] 14712 MCH (RBC) [Entitic mass] 29.3 pg Normal 27-34 [facility] Comment on above: Performed By: #### U A #### [facility] ([id number]) [address] [place] [address] 58385 MCHC (RBC) [Mass/Vol] 32.7 g/dL Normal 32-36 [facility] Comment on above: Performed By: #### U A #### [facility] ([id number]) [address] [place] [address] 66592 MCV (RBC) [Entitic vol] 90 fL Normal 80-100 [facility] Comment on above: Performed By: #### U A #### [facility] ([id number]) [address] [place] [address] 52460 Monocytes (Bld) [#/Vol] 1.1 10*3/uL High 0-0.9 [facility] Comment on above: Performed By: #### U A #### [facility] ([id number]) [address] [place] [address] 66684 Monocytes/100 WBC (Bld) 12.8 % Normal [facility] Comment on above: Performed By: #### U A #### [facility] ([id number]) [address] [place] [address] 33834 Neutrophils/100 WBC (Bld) 58.7 % Normal [facility] Comment on above: Performed By: #### U A #### [facility] ([id number]) [address] [place] [address] 18425 Platelet mean volume (Bld) [Entitic vol] 6.6 fL Low 7-12 [facility] Comment on above: Performed By: #### U A #### [facility] ([id number]) [address] [place] [address] 69948 Platelets (Bld) [#/Vol] 281 10*3/uL Normal 150-450 [facility] Comment on above: Performed By: #### U A #### [facility] ([id number]) [address] [place] [address] 13854 RBC COUNT 4.19 X10E12/L Normal 4.10-5.70 [facility] Comment on above: Performed By: #### U A #### [facility] ([id number]) [address] [place] [address] 17799 WBC (Bld) [#/Vol] 8.8 10*3/uL Normal 4.0-11.0 [facility] Comment on above: Performed By: #### U A #### [facility] ([id number]) [address] [place] [address] 10095 CREATININEon 02-17-2024 Creatinine [Mass/Vol] 3.74 mg/dL High 0.70-1.20 [facility] Comment on above: Result Comment: METH OD TRACEABLE TO IDMS STANDARD Performed By: #### E LEC, 3094-0, WAGON WASHER, 08298-3 #### [facility] ([id number]) [address] [place] [address] 76397 #### 71319-6, HA1C #### [facility] ([id number]) [address] [place] [address], [address] [place] [address] GFR/1.73 sq M.predicted among non-blacks MDRD (S/P/Bld) [Vol rate/Area] 17 mL/min/{1.73_m2} Low >59 [facility] Comment on above: Result Comment: Reported eGFR is based on the CKD-EPI 2020 equation that does not use a race coefficient. Performed By: #### E LEC, 3094-0, WAGON WASHER, 16107-5 #### [facility] ([id number]) [address] [place] [address] 37344 #### 44575-4, HA1C #### [facility] ([id number]) [address] [place] [address], [address] [place] [address] ELECTROLYTESon 02-17-2024 Anion gap [Moles/Vol] 8 mmol/L Normal 5-15 [facility] Comment on above: Performed By: #### Tiki LEC, 309-0, WAGON WASHER, 05017-5 #### [facility] ([id number]) [address] [place] [address] 26415 #### 85653-7, HA1C #### [facility] ([id number]) [address] [place] [address], [address] [place] [address] Chloride [Moles/Vol] 106 mmol/L Normal 98-109 [facility] Comment on above: Performed By: #### E LEC, 3094-0, WAGON WASHER, 27351-5 #### [facility] ([id number]) [address] [place] [address] 34646 #### 87700-4, HA1C #### [facility] ([id number]) [address] [place] [address], [address] [place] [address] CO2 [Moles/Vol] 21 mmol/L Low 22-32 [facility] Comment on above: Performed By: #### E LEC, 3094-0, WAGON WASHER, 50743-3 #### [facility] ([id number]) [address] [place] [address] 08676 #### 21906-1, HA1C #### [facility] ([id number]) [address] [facility], [address] [place] [address] Potassium [Moles/Vol] 5.2 mmol/L High 3.5-5.0 [facility] Comment on above: Performed By: #### E LEC, 3094-0, WAGON WASHER, 20011-3 #### [facility] ([id number]) [address] [place] [address] 57517 #### 89395-1, HA1C #### [facility] ([id number]) [address] [facility], [address] [place] [address] Sodium [Moles/Vol] 135 mmol/L Normal 134-146 [facility] Comment on above: Performed By: #### E LEC, 3094-0, WAGON WASHER, 70179-5 #### [facility] ([id number]) [address] [place] [address] 47365 #### 91042-0, HA1C #### [facility] ([id number]) [address] [facility], [address] [place] [address] BLOOD UREA NITROGENon 2023 Urea nitrogen [Mass/Vol] 50 mg/dL High 5-27 [facility] Comment on above: Performed By: #### U A #### [facility] ([id number]) [address] [place] [address] 98750 CALCIUMon 01-20-2024 Calcium [Mass/Vol] 8.7 mg/dL Normal 8.5-10.5 [facility] Comment on above: Performed By: #### B MP, CBCA, 1987-08, 56229-8 #### [facility] ([id number]) [address] [place] [address] 32769 #### 27070-0 #### [facility] ([id number]) [address] [facility], [address] [place] [address] CBC AND AUTO DIFFon 01-20-20 24 ABSOLUTE BASOPHIL 0.1 X10E9/L Normal 0.0-0.2 [facility] Comment on above: Performed By: #### B ALCON, CBCA, 1987-08, 11212-0 #### [facility] ([id number]) [address] [place] [address] 72567 #### 92577-7 #### [facility] ([id number]) [address] [facility], [address] [place] [address] ABSOLUTE NEUTROPHIL 6.0 X10E9/L Normal 1.5-6.6 [facility] Comment on above: Performed By: #### B ALCON, CBCA, 1987-08, 01977-9 #### [facility] ([id number]) [address] [place] [address] 05268 #### 67168-9 #### [facility] ([id number]) [address] [facility], [address] [place] [address] Basophils/100 WBC (Bld) 0.6 % Normal [facility] Comment on above: Performed By: #### B MP, CBCA, 1987-08, 34893-7 #### [facility] ([id number]) [address] [place] [address] 53466 #### 46474-9 #### [facility] ([id number]) [address] [facility], [address] [place] [address] Eosinophils (Bld) [#/Vol] 0.3 10*3/uL Normal 0.0-0.4 [facility] Comment on above: Performed By: #### Laura RONDON, CBCA, 1987-08, 95544-1 #### [facility] ([id number]) [address] [place] [address] 89356 #### 87175-1 #### [facility] ([id number]) [address] [facility] [facility], [address] [place] [address] Eosinophils/100 WBC (Bld) 3.1 % Normal [facility] Comment on above: Performed By: #### Laura RONDON CBCA, 1987-08, #### [facility] ([id number]) [address] [place] [address] 94253 #### 72949-9 #### [facility] ([id number]) [address] [facility] [facility], [address] [place] [address] Erythrocyte distribution width (RBC) [Ratio] 13.5 % Normal 11.5-15.0 [facility] Comment on above: Performed By: #### Laura RONDON CBCA, 1987-08, #### [facility] ([id number]) [address] [place] [address] 69873 #### 66110-7 #### [facility] ([id number]) [address] [facility], [address] [place] [address] Hematocrit (Bld) [Volume fraction] 36.1 % Low 39-49 [facility] Comment on above: Performed By: #### Laura RONDON CBCA, 1987-08, #### [facility] ([id number]) [address] [place] [address] 70243 #### 09778-9 #### [facility] ([id number]) [address] [facility], [address] [place] [address] Hemoglobin (Bld) [Mass/Vol] 11.8 g/dL Low 13.0-17.0 [facility] Comment on above: Performed By: #### B ALCON, CBCA, 1987-08, #### [facility] ([id number]) [address] [place] [address] 00430 #### 60157-9 #### [facility] ([id number]) [address], [address] [place] [address] Lymphocytes (Bld) [#/Vol] 2.0 10*3/uL Normal 1.0-3.5 [facility] Comment on above: Performed By: #### Laura RONDON CBCA, 1987-08, #### [facility] ([id number]) [address] [place] [address] 91641 #### 42315-1 #### [facility] ([id number]) [address], [address] [place] [address] Lymphocytes/100 WBC (Bld) 20.7 % Normal [facility] Comment on above: Performed By: #### Laura RONDON CBCA, 1987-08, #### [facility] ([id number]) [address] [place] [address] 21023 #### 78857-5 #### [facility] ([id number]) [address], [address] [place] [address] MCH (RBC) [Entitic mass] 29.1 pg Normal 27-34 [facility] Comment on above: Performed By: #### Laura RONDON CBCA, 1987-08, #### [facility] ([id number]) [address] [place] [address] 11991 #### 59558-7 #### [facility] ([id number]) [address], [address] [place] [address] MCHC (RBC) [Mass/Vol] 32.8 g/dL Normal 32-36 [facility] Comment on above: Performed By: #### Laura RONDON, CBCA, 1987-08, #### [facility] ([id number]) [address] [place] [address] 24251 #### 39428-0 #### [facility] ([id number]) [address] [facility], [address] [place] [address] MCV (RBC) [Entitic vol] 89 fL Normal 80-100 [facility] Comment on above: Performed By: #### B ALCON CBCA, 1987-08, #### [facility] ([id number]) [address] [place] [address] 34581 #### 44258-8 #### [facility] ([id number]) [address] [facility], [address] [place] [address] Monocytes (Bld) [#/Vol] 1.2 10*3/uL High 0-0.9 [facility] Comment on above: Performed By: #### Laura RONDON, CBCA, 1987-08, #### [facility] ([id number]) [address] [place] [address] 51186 #### 02140-1 #### [facility] ([id number]) [address] [facility], [address] [place] [address] Monocytes/100 WBC (Bld) 12.3 % Normal [facility] Comment on above: Performed By: #### Laura RONDON, CBCA, 1987-08, #### [facility] ([id number]) [address] [place] [address] 96258 #### 61517-8 #### [facility] ([id number]) [address] [facility], [address] [place] [address] Neutrophils/100 WBC (Bld) 63.3 % Normal [facility] Comment on above: Performed By: #### B ALCON CBCA, 1987-08, #### [facility] ([id number]) [address] [place] [address] 12105 #### 54180-6 #### [facility] ([id number]) [address] [facility], [address] [place] [address] Platelet mean volume (Bld) [Entitic vol] 7.7 fL Normal 7-12 [facility] Comment on above: Performed By: #### Laura RONDON CBCA, 1987-08, #### [facility] ([id number]) [address] [place] [address] 45250 #### 32615-0 #### [facility] ([id number]) [address] [facility], [address] [place] [address] Platelets (Bld) [#/Vol] 264 10*3/uL Normal 150-450 [facility] Comment on above: Performed By: #### Laura RONDON CBCA, 1987-08, 45485-9 #### [facility] ([id number]) [address] [place] [address] 97320 #### 61185-1 #### [facility] ([id number]) [address] [facility] [facility], [address] [place] [address] RBC COUNT 4.07 X10E12/L Low 4.10-5.70 [facility] Comment on above: Performed By: #### Laura RONDON CBCA, 1987-08, #### [facility] ([id number]) [address] [place] [address] 64927 #### 08649-5 #### [facility] ([id number]) [address] [facility], [address] [place] [address] WBC (Bld) [#/Vol] 9.4 10*3/uL Normal 4.0-11.0 [facility] Comment on above: Performed By: #### B MP, CBCA, 1987-, 78128-6 #### [facility] ([id number]) [address] [place] [address] 50257 #### 42513-9 #### [facility] ([id number]) [address] [facility], [address] [place] [address] CREATININEon 01-20-2024 Creatinine [Mass/Vol] 3.14 mg/dL High 0.70-1.20 [facility] Comment on above: Result Comment: METH OD TRACEABLE TO IDMS STANDARD Performed By: #### U A #### [facility] ([id number]) [address] [place] [address] 79393 GFR/1.73 sq M.predicted among non-blacks MDRD (S/P/Bld) [Vol rate/Area] 21 mL/min/{1.73_m2} Low >59 [facility] Comment on above: Result Comment: Reported eGFR is based on the CKD-EPI 2020 equation that does not use a race coefficient. Performed By: #### U A #### [facility] ([id number]) [address] [place] [address] 40079 ELECTROLYTESon 01-20-2024 Anion gap [Moles/Vol] 8 mmol/L Normal 5-15 [facility] Comment on above: Performed By: #### U A #### [facility] ([id number]) [address] [place] [address] 04286 Chloride [Moles/Vol] 104 mmol/L Normal 98-109 [facility] Comment on above: Performed By: #### U A #### [facility] ([id number]) [address] [place] [address] 43087 CO2 [Moles/Vol] 19 mmol/L Low 22-32 [facility] Comment on above: Performed By: #### U A #### [facility] ([id number]) [address] [place] [address] 85181 Potassium [Moles/Vol] 4.9 mmol/L Normal 3.5-5.0 [facility] Comment on above: Performed By: #### U A #### [facility] ([id number]) [address] [place] [address] 04262 Sodium [Moles/Vol] 131 mmol/L Low 134-146 [facility] Comment on above: Performed By: #### U A #### [facility] ([id number]) [address] [place] [address] 02411 ESR Photometric method (Bld) [Velocity]on 01-20-2024 ESR, ERYTHROCYTE SEDIMENTATION RATE 98 mm/h High 0-20 [facility] Comment on above: Performed By: #### U A #### [facility] ([id number]) [address] [place] [address] 20758 HGB A1C (GLYCO-HGB)on 2023 Glucose [Mass/Vol] 289 mg/dL Normal [facility] Comment on above: Performed By: #### U A #### [facility] ([id number]) [address] [place] [address] 33385 HbA1c (Bld) [Mass fraction] 11.7 % High 4.4-5.6 [facility] Comment on above: Result Comment: NOTE ADA Guidelines Result HgbA1c Normal : less than 5.7 % Prediabetes : 5.7 % to 6.4 % Diabetes : > 6.4 % Use with caution in patients with abnormal hemoglobin variants as the half-life of red blood cells and in vivo glycation rates are affected. Performed By: #### U A #### [facility] ([id number]) [address] [place] [address] 89207 LIVER PANELon 01-20-2024 Albumin [Mass/Vol] 2.9 g/dL Low 3.2-5.3 [facility] Comment on above: Performed By: #### U A #### [facility] ([id number]) [address] [place] [address] 32260 ALP [Catalytic activity/Vol] 79 U/L Normal 39-130 [facility] Comment on above: Performed By: #### U A #### [facility] ([id number]) [address] [place] [address] 14180 ALT [Catalytic activity/Vol] 26 U/L Normal 0-40 [facility] Comment on above: Performed By: #### U A #### [facility] ([id number]) [address] [place] [address] 27269 AST [Catalytic activity/Vol] 19 U/L Normal 0-41 [facility] Comment on above: Performed By: #### U A #### [facility] ([id number]) [address] [place] [address] 42175 Bilirubin [Mass/Vol] 0.5 mg/dL Normal 0.3-1.2 [facility] Comment on above: Performed By: #### U A #### [facility] ([id number]) [address] [place] [address] 82335 Bilirubin.indirect [Mass/Vol] mg/dL Normal 0.0-0.4 [facility] Comment on above: Performed By: #### U A #### [facility] ([id number]) [address] [place] [address] 83048 Protein [Mass/Vol] 6.9 g/dL Normal 6.0-8.0 [facility] Comment on above: Performed By: #### U A #### [facility] ([id number]) [address] [place] [address] [id number] Lipid 1996 panelon 4 Cholesterol [Mass/Vol] 136 mg/dL Low 150-200 [facility] Comment on above: Performed By: #### U A #### [facility] ([id number]) [address] [place] [address] [id number] Cholesterol in HDL [Mass/Vol] 40 mg/dL Normal >39 [facility] Comment on above: Result Comment: HDL <40 mg/dL - High Risk HDL > or = 40mg/dL- Desirable HDL >60 mg/dL - Negative Risk Performed By: #### U A #### [facility] ([id number]) [address] [place] [address] [id number] Cholesterol in LDL [Mass/Vol] 62 mg/dL Normal <130 [facility] [facility] Comment on above: Result Comment: LDL <100 mg/dL - Desirable LDL >160 mg/dL - High Risk Performed By: #### U A #### [facility] ([id number]) [address] [place] [address] 38889 Cholesterol in VLDL [Mass/Vol] 34 mg/dL High 0-30 [facility] Comment on above: Performed By: #### U A #### [facility] ([id number]) [address] [place] [address] 26927 CHOLESTEROL:HDL 3.4 Normal 1.0-5.0 [facility] Comment on above: Performed By: #### U A #### [facility] ([id number]) [address] [place] [address] 87497 Triglyceride [Mass/Vol] 172 mg/dL High 27-150 [facility] Comment on above: Performed By: #### U A #### [facility] ([id number]) [address] [place] [address] 03941 Natriuretic peptide B [Mass/ Vol]on 01-20-2024 Natriuretic peptide B (Bld) [Mass/Vol] 88 pg/mL Normal <100.0 [facility] Comment on above: Performed By: #### U A #### [facility] ([id number]) [address] [place] [address] 95411 Vitamin D+Metabolites [Mass/ Vol]on 01-20-2024 VITAMIN D 25 HYD TOT 15.1 ng/mL Low 30-100 [facility] Comment on above: Result Comment: Vitamin D status 25 [place] Vitamin D Deficiency <20 ng/mL Insufficiency 20-29 ng/mL Sufficiency 30-100 ng/mL Toxicity >100 ng/mL NOTE: A pediatric reference range has not been established by the bell ringer of this kit. The [place] [employer] recommends a Vitamin D level of = or >20ng/mL in infants and children. Performed By: #### U A #### [facility] ([id number]) [address] [place] [address] 00685 BLOOD UREA NITROGENon 2023 Urea nitrogen [Mass/Vol] 50 mg/dL High 5-27 [facility] Comment on above: Performed By: #### B MP, CBCA, 1987-, 69726-2 #### [facility] ([id number]) [address] [place] [address] 08738 #### 46358-3 #### [facility] ([id number]) [address], [address] [place] [address] CBC AND AUTO DIFFon 12-16-19 24 ABSOLUTE BASOPHIL 0.0 X10E9/L Normal 0.0-0.2 [facility] Comment on above: Performed By: #### B MP, CBCA, 1987-08, 52049-8 #### [facility] ([id number]) [address] [place] [address] 73547 #### 77540-9 #### [facility] ([id number]) [address] [facility], [address] [place] [address] ABSOLUTE NEUTROPHIL 5.7 X10E9/L Normal 1.5-6.6 [facility] Comment on above: Performed By: #### B MP, CBCA, 1987-08, 73002-1 #### [facility] ([id number]) [address] [place] [address] 31762 #### 97230-2 #### [facility] ([id number]) [address] [facility], [address] [place] [address] 80483 Basophils/100 WBC (Bld) 0.4 % Normal [facility] Comment on above: Performed By: #### B MP, CBCA, 1987-08, 36536-5 #### [facility] ([id number]) [address] [place] [address] 82488 #### 39810-9 #### [facility] ([id number]) [address] [facility], [address] [place] [address] Eosinophils (Bld) [#/Vol] 0.4 10*3/uL Normal 0.0-0.4 [facility] Comment on above: Performed By: #### B MP, CBCA, 1987-08, 71964-9 #### [facility] ([id number]) [address] [place] [address] 22198 #### 58488-4 #### [facility] ([id number]) [address], [address] [place] [address] Eosinophils/100 WBC (Bld) 4.8 % Normal [facility] Comment on above: Performed By: #### B ALCON, CBCA, 1987-08, 17693-7 #### [facility] ([id number]) [address] [place] [address] 27431 #### 01223-3 #### [facility] ([id number]) [address] [facility], [address] [place] [address] Erythrocyte distribution width (RBC) [Ratio] 14.7 % Normal 11.5-15.0 [facility] Comment on above: Performed By: #### Laura RONDON, CBCA, 1987-08, 40230-5 #### [facility] ([id number]) [address] [place] [address] 93510 #### 86320-9 #### [facility] ([id number]) [address] [facility], [address] [place] [address] Hematocrit (Bld) [Volume fraction] 39.0 % Normal 39-49 [facility] Comment on above: Performed By: #### Laura RONDON, CBCA, 1987-08, 03084-5 #### [facility] ([id number]) [address] [place] [address] 01555 #### 44486-8 #### [facility] ([id number]) [address], [address] [place] [address] Hemoglobin (Bld) [Mass/Vol] 13.3 g/dL Normal 13.0-17.0 [facility] Comment on above: Performed By: #### Laura RONDON, CBCA, 1987-08, 59333-0 #### [facility] ([id number]) [address] [place] [address] 17083 #### 64124-6 #### [facility] ([id number]) [address], [address] [place] [address] Lymphocytes (Bld) [#/Vol] 1.7 10*3/uL Normal 1.0-3.5 [facility] Comment on above: Performed By: #### Laura MP, CBCA, 1987-08, #### [facility] ([id number]) [address] [place] [address] 32857 #### 99440-5 #### [facility] ([id number]) [address], [address] [place] [address] Lymphocytes/100 WBC (Bld) 19.3 % Normal [facility] Comment on above: Performed By: #### Laura MP, CBCA, 1987-08, #### [facility] ([id number]) [address] [place] [address] 17003 #### 76853-5 #### [facility] ([id number]) [address], [address] [place] [address] MCH (RBC) [Entitic mass] 29.8 pg Normal 27-34 [facility] Comment on above: Performed By: #### Laura MP, CBCA, 1987-08, #### [facility] ([id number]) [address] [place] [address] 10676 #### 16293-4 #### [facility] ([id number]) [address], [address] [place] [address] MCHC (RBC) [Mass/Vol] 34.0 g/dL Normal 32-36 [facility] Comment on above: Performed By: #### B MP, CBCA, #### [facility] ([id number]) [address] [place] [address] 61571 #### 17500-1 #### [facility] ([id number]) [address], [address] [place] [address] MCV (RBC) [Entitic vol] 88 fL Normal 80-100 [facility] Comment on above: Performed By: #### B MP, CBCA, 1987-08, #### [facility] ([id number]) [address] [place] [address] 66192 #### 44747-6 #### [facility] ([id number]) [address], [address] [place] [address] Monocytes (Bld) [#/Vol] 0.8 10*3/uL Normal 0-0.9 [facility] Comment on above: Performed By: #### B ALCON, CBCA, 1987-08, #### [facility] ([id number]) [address] [place] [address] 91373 #### 72884-3 #### [facility] ([id number]) [address], [address] [place] [address] Monocytes/100 WBC (Bld) 8.8 % Normal [facility] Comment on above: Performed By: #### Laura MP, CBCA, 1987-08, #### [facility] ([id number]) [address] [place] [address] 85333 #### 68013-2 #### [facility] ([id number]) [address], [address] [place] [address] Neutrophils/100 WBC (Bld) 66.7 % Normal [facility] Comment on above: Performed By: #### B MP, CBCA, 1987-08, #### [facility] ([id number]) [address] [place] [address] 79254 #### 34044-0 #### [facility] ([id number]) [address], [address] [place] [address] Platelet mean volume (Bld) [Entitic vol] 7.7 fL Normal 7-12 [facility] Comment on above: Performed By: #### B ALCON, CBCA, 1987-08, 60923-0 #### [facility] ([id number]) [address] [place] [address] 41000 #### 94876-1 #### [facility] ([id number]) [address] [facility] [facility], [address] [place] [address] Platelets (Bld) [#/Vol] 286 10*3/uL Normal 150-450 [facility] Comment on above: Performed By: #### B ALCON, CBCA, 1987-08, 40107-1 #### [facility] ([id number]) [address] [place] [address] 78114 #### 31253-3 #### [facility] ([id number]) [address], [address] [place] [address] RBC COUNT 4.46 X10E12/L Normal 4.10-5.70 [facility] Comment on above: Performed By: #### B ALCON, CBCA, 1987-08, 07710-8 #### [facility] ([id number]) [address] [place] [address] 26809 #### 33286-9 #### [facility] ([id number]) [address], [address] [place] [address] WBC (Bld) [#/Vol] 8.6 10*3/uL Normal 4.0-11.0 [facility] Comment on above: Performed By: #### B JAMES RONDON, 1987-08, 83226-7 #### [facility] ([id number]) [address] [place] [address] 96880 #### 41486-9 #### [facility] ([id number]) [address], [address] [place] [address] CREATININEon 12-16-2023 Creatinine [Mass/Vol] 3.32 mg/dL High 0.70-1.20 [facility] Comment on above: Result Comment: METH OD TRACEABLE TO IDMS STANDARD Performed By: #### B JAMES RONDON, 1987-08, #### [facility] ([id number]) [address] [place] [address] 63040 #### 68004-7 #### [facility] ([id number]) [address], [address] [place] [address] GFR/1.73 sq M.predicted among non-blacks MDRD (S/P/Bld) [Vol rate/Area] 20 mL/min/{1.73_m2} Low >59 [facility] Comment on above: Result Comment: Reported eGFR is based on the CKD-EPI 2020 equation that does not use a race coefficient. Performed By: #### B JAMES RONDON, 1987-08, 69051-0 #### [facility] ([id number]) [address] [place] [address] 54940 #### 49047-6 #### [facility] ([id number]) [address], [address] [place] [address] ELECTROLYTESon 12-16-2023 Anion gap [Moles/Vol] 8 mmol/L Normal 5-15 [facility] Comment on above: Performed By: #### B JAMES RONDON, 1987-08, 49991-6 #### [facility] ([id number]) [address] [place] [address] 27989 #### 81957-4 #### [facility] ([id number]) [address] [place] [address], [address] [place] [address] Chloride [Moles/Vol] 103 mmol/L Normal 98-109 [facility] Comment on above: Performed By: #### SEVEN Sanchez MPA, 1987-08, 23914-5 #### [facility] ([id number]) [address] [place] [address] 24383 #### 63977-4 #### [facility] ([id number]) [address] [place] [address], [address] [place] [address] CO2 [Moles/Vol] 18 mmol/L Low 22-32 [facility] Comment on above: Performed By: #### JAMES Sanchez MP, 1987-08, 80870-6 #### [facility] ([id number]) [address] [place] [address] 29649 #### 69986-9 #### [facility] ([id number]) [address] [place] [address], [address] [place] [address] Potassium [Moles/Vol] 4.5 mmol/L Normal 3.5-5.0 [facility] Comment on above: Performed By: #### JAMES Sanchez MP, 1987-08, 15607-5 #### [facility] ([id number]) [address] [place] [address] 46669 #### 15005-2 #### [facility] ([id number]) [address] [place] [address], [address] [place] [address] Sodium [Moles/Vol] 129 mmol/L Low 134-146 [facility] Comment on above: Performed By: #### SEVEN Sanchez MPA, 1987-08, 79260-4 #### [facility] ([id number]) [address] [place] [address] 82254 #### 94969-6 #### [facility] ([id number]) [address], [address] [address] BLOOD UREA NITROGENon 2023 Urea nitrogen [Mass/Vol] 41 mg/dL High 5-27 [facility] Comment on above: Performed By: #### C BCA, 3094-0, WAGON WASHER, ELEC #### [facility] ([id number]) [address], [address] [address] CBC AND AUTO DIFFon 11-19-19 ABSOLUTE BASOPHIL 0.2 X10E9/L Normal 0.0-0.2 [facility] Comment on above: Performed By: #### C BCA, 3094-0, WAGON WASHER, ELEC #### [facility] ([id number]) [address], [address] [address] Basophils/100 WBC (Bld) 1.9 % Normal [facility] Comment on above: Performed By: #### C BCA, 3094-0, WAGON WASHER, ELEC #### [facility] ([id number]) [address], [address] [address] KATHERINE 1+ Abnormal NONE [facility] Comment on above: Performed By: #### C BCA, 3094-0, WAGON WASHER, ELEC #### [facility] ([id number]) [address], [address] [address] Eosinophils (Bld) [#/Vol] 0.4 10*3/uL Normal 0.0-0.4 [facility] Comment on above: Performed By: #### C BCA, 3094-0, WAGON WASHER, ELEC #### [facility] ([id number]) [address] [address] Eosinophils/100 WBC (Bld) 3.8 % Normal [facility] Comment on above: Performed By: #### C BCA, 3094-0, WAGON WASHER, ELEC #### [facility] ([id number]) [address], [facility] [address] [place] [address] Erythrocyte distribution width (RBC) [Ratio] 14.4 % Normal 11.5-15.0 [facility] Comment on above: Performed By: #### C BCA, 3094-0, WAGON WASHER, ELEC #### [facility] ([id number]) [address], [facility] [address] [place] [address] Hematocrit (Bld) [Volume fraction] 40.3 % Normal 39-49 [facility] Comment on above: Performed By: #### C BCA, 3094-0, WAGON WASHER, ELEC #### [facility] ([id number]) [address] [address] [place] [address] Hemoglobin (Bld) [Mass/Vol] 13.4 g/dL Normal 13.0-17.0 [facility] Comment on above: Performed By: #### C BCA, 3094-0, WAGON WASHER, ELEC #### [facility] ([id number]) [address] [address] Lymphocytes (Bld) [#/Vol] 2.0 10*3/uL Normal 1.0-3.5 [facility] Comment on above: Performed By: #### C BCA, 3094-0, WAGON WASHER, ELEC #### [facility] ([id number]) [address], [address] [address] Lymphocytes/100 WBC (Bld) 21.7 % Normal [facility] Comment on above: Performed By: #### C BCA, 3094-0, WAGON WASHER, ELEC #### [facility] ([id number]) [address] [address] [place] [address] MCH (RBC) [Entitic mass] 29.6 pg Normal 27-34 [facility] Comment on above: Performed By: #### C BCA, 3094-0, WAGON WASHER, ELEC #### [facility] ([id number]) [address], [address] [place] [address] MCHC (RBC) [Mass/Vol] 33.4 g/dL Normal 32-36 [facility] Comment on above: Performed By: #### C IRENE, 3094-0, WAGON WASHER, ELEC #### [facility] ([id number]) [address], [address] [place] [address] MCV (RBC) [Entitic vol] 89 fL Normal 80-100 [facility] Comment on above: Performed By: #### C IRENE, 3094-0, WAGON WASHER, ELEC #### [facility] ([id number]) [address], [facility] [address] [place] [address] Monocytes (Bld) [#/Vol] 0.6 10*3/uL Normal 0-0.9 [facility] Comment on above: Performed By: #### C IRENE, 3094-0, WAGON WASHER, ELEC #### [facility] ([id number]) [address], [facility] [address] [place] [address] Monocytes/100 WBC (Bld) 6.6 % Normal [facility] Comment on above: Performed By: #### C IRENE, 3094-0, WAGON WASHER, ELEC #### [facility] ([id number]) [address], [facility] [address] [place] [address] Neutrophils (Bld) [#/Vol] 6.1 10*3/uL Normal 1.5-6.6 [facility] Comment on above: Performed By: #### C IRENE, 3094-0, WAGON WASHER, ELEC #### [facility] ([id number]) [address], [facility] [address] [place] [address] Platelet mean volume (Bld) [Entitic vol] 8.0 fL Normal 7-12 [facility] Comment on above: Performed By: #### Gabrielle BONILLA, 3094-0, WAGON WASHER, ELEC #### [facility] ([id number]) [address] [address] [place] [address] Platelets (Bld) [#/Vol] 253 10*3/uL Normal 150-450 [facility] Comment on above: Performed By: #### C BCA, 3094-0, WAGON WASHER, ELEC #### [facility] ([id number]) [address] [address] [place] [address] RBC COUNT 4.54 X10E12/L Normal 4.10-5.70 [facility] Comment on above: Performed By: #### C BCA, 3094-0, WAGON WASHER, ELEC #### [facility] ([id number]) [address] [address] SEG NEUTROPHIL 66.0 % Normal [facility] Comment on above: Performed By: #### C BCA, 3094-0, WAGON WASHER, ELEC #### [facility] ([id number]) [address] [address] WBC (Bld) [#/Vol] 9.3 10*3/uL Normal 4.0-11.0 [facility] Comment on above: Performed By: #### C BCA, 3094-0, WAGON WASHER, ELEC #### [facility] ([id number]) [address] [address] CREATININEon 11-19-2023 Creatinine [Mass/Vol] 3.18 mg/dL High 0.60-1.30 [facility] Comment on above: Result Comment: METH OD TRACEABLE TO IDMS STANDARD Performed By: #### C BCA, 3094-0, WAGON WASHER, ELEC #### [facility] ([id number]) [address] [address] GFR/1.73 sq M.predicted among non-blacks MDRD (S/P/Bld) [Vol rate/Area] 21 mL/min/{1.73_m2} Low >59 [facility] Comment on above: Result Comment: Reported eGFR is based on the CKD-EPI 2020 equation that does not use a race coefficient. Performed By: #### C BCA, 3094-0, WAGON WASHER, ELEC #### [facility] ([id number]) [address], [address] [place] [address] ELECTROLYTESon 11-19-2023 Anion gap [Moles/Vol] 9 mmol/L Normal 5-15 [facility] Comment on above: Performed By: #### C BCA, 3094-0, WAGON WASHER, ELEC #### [facility] ([id number]) [address], [address] [place] [address] Chloride [Moles/Vol] 100 mmol/L Normal 98-109 [facility] Comment on above: Performed By: #### C BCA, 3094-0, WAGON WASHER, ELEC #### [facility] ([id number]) [address], [address] [place] [address] CO2 [Moles/Vol] 22 mmol/L Normal 22-32 [facility] Comment on above: Performed By: #### C BCA, 3094-0, WAGON WASHER, ELEC #### [facility] ([id number]) [address], [address] [place] [address] Potassium [Moles/Vol] 3.9 mmol/L Normal 3.5-5.0 [facility] Comment on above: Performed By: #### C BCA, 3094-0, WAGON WASHER, ELEC #### [facility] ([id number]) [address], [address] [place] [address] Sodium [Moles/Vol] 131 mmol/L Low 134-146 [facility] Comment on above: Performed By: #### C BCA, 3094-0, WAGON WASHER, ELEC #### [facility] ([id number]) [address], [address] [place] [address] BLOOD UREA NITROGENon 2023 Urea nitrogen [Mass/Vol] 35 mg/dL High 5-27 [facility] Comment on above: Performed By: #### B ALCON CBCA, 1987-08, #### [facility] ([id number]) [address] [place] [address] 24874 #### 59211-7 #### [facility] ([id number]) [address], [address] [place] [address] CALCIUMon 10-23-2023 Calcium [Mass/Vol] 8.1 mg/dL Low 8.5-10.5 [facility] Comment on above: Performed By: #### B ALCON CBCA, 1987-08, #### [facility] ([id number]) [address] [place] [address] 87425 #### 64732-7 #### [facility] ([id number]) [address] [facility] [facility], [address] [place] [address] CBC AND AUTO DIFFon 10-23-19 24 ABSOLUTE BASOPHIL 0.0 X10E9/L Normal 0.0-0.2 [facility] Comment on above: Performed By: #### B ALCON CBCA, 47730-0 #### [facility] ([id number]) [address] [place] [address] 668[address] #### 18988-4 #### [facility] ([id number]) [address], [address] [place] [address] ABSOLUTE NEUTROPHIL 5.4 X10E9/L Normal 1.5-6.6 [facility] Comment on above: Performed By: #### B ALCON CBCA, 1987-08, 04822-0 #### [facility] ([id number]) [address] [place] [address] 09638 #### 18630-8 #### [facility] ([id number]) [address], [address] [place] [address] Basophils/100 WBC (Bld) 0.5 % Normal [facility] Comment on above: Performed By: #### B ALCON, CBCA, 1987-08, #### [facility] ([id number]) [address] [place] [address] 10958 #### 30703-8 #### [facility] ([id number]) [address] [facility], [address] [place] [address] Eosinophils (Bld) [#/Vol] 0.3 10*3/uL Normal 0.0-0.4 [facility] Comment on above: Performed By: #### B ALCON, CBCA, 1987-08, #### [facility] ([id number]) [address] [place] [address] 88100 #### 24861-0 #### [facility] ([id number]) [address] [facility], [address] [place] [address] Eosinophils/100 WBC (Bld) 3.2 % Normal [facility] Comment on above: Performed By: #### B ALCON, CBCA, 1987-08, #### [facility] ([id number]) [address] [place] [address] 88547 #### 24279-0 #### [facility] ([id number]) [address], [address] [place] [address] Erythrocyte distribution width (RBC) [Ratio] 14.4 % Normal 11.5-15.0 [facility] Comment on above: Performed By: #### B ALCON, CBCA, 1987-08, #### [facility] ([id number]) [address] [place] [address] #### [id number] #### [facility] ([id number]) [address], [address] [place] [address] Hematocrit (Bld) [Volume fraction] 39.7 % Normal 39-49 [facility] Comment on above: Performed By: #### B ALCON, CBCA, 1987-08, #### [facility] ([id number]) [address] [place] [address] 17974 #### 81321-2 #### [facility] ([id number]) [address], [address] [place] [address] Hemoglobin (Bld) [Mass/Vol] 13.1 g/dL Normal 13.0-17.0 [facility] Comment on above: Performed By: #### B ALCON, CBCA, 1987-08, #### [facility] ([id number]) [address] [place] [address] #### 43147-7 #### [facility] ([id number]) [address], [address] [place] [address] Lymphocytes (Bld) [#/Vol] 2.1 10*3/uL Normal 1.0-3.5 [facility] Comment on above: Performed By: #### B ALCON, CBCA, 1987-08, #### [facility] ([id number]) [address] [place] [address]487 #### 80661-6 #### [facility] ([id number]) [address], [address] [place] [address] Lymphocytes/100 WBC (Bld) 24.5 % Normal [facility] Comment on above: Performed By: #### Laura RONDON, CBCA, 1987-08, #### [facility] ([id number]) [address] [place] [address]258 #### 42955-2 #### [facility] ([id number]) [address], [address] [place] [address] MCH (RBC) [Entitic mass] 29.0 pg Normal 27-34 [facility] Comment on above: Performed By: #### Laura RONDON, CBCA, 1987-08, 33163-2 #### [facility] ([id number]) [address] [place] [address] #### 51793-8 #### [facility] ([id number]) [address] [facility], [address] [place] [address] MCHC (RBC) [Mass/Vol] 32.9 g/dL Normal 32-36 [facility] Comment on above: Performed By: #### Laura RONDON, CBCA, 1987-08, #### [facility] ([id number]) [address] [place] [address] #### 70973-1 #### [facility] ([id number]) [address], [address] [place] [address] MCV (RBC) [Entitic vol] 88 fL Normal 80-100 [facility] Comment on above: Performed By: #### Laura RONDON, CBCA, 1987-08, #### [facility] ([id number]) [address] [place] [address] #### 39613-0 #### [facility] ([id number]) [address] [facility] [facility], [address] [place] [address] Monocytes (Bld) [#/Vol] 0.8 10*3/uL Normal 0-0.9 [facility] Comment on above: Performed By: #### Laura RONDON, CBCA, 1987-08, #### [facility] ([id number]) [address] [place] [address] 70614 #### 25302-8 #### [facility] ([id number]) [address] [facility], [address] [place] [address] Monocytes/100 WBC (Bld) 9.2 % Normal [facility] Comment on above: Performed By: #### B MP, CBCA, 1987-08, 55299-8 #### [facility] ([id number]) [address] [place] [address] 07355 #### 39217-7 #### [facility] ([id number]) [address] [place] [address], [address] [place] [address] Neutrophils/100 WBC (Bld) 62.6 % Normal [facility] Comment on above: Performed By: #### Laura MP, CBCA, 1987-08, 21055-4 #### [facility] ([id number]) [address] [place] [address] 91035 #### 33239-7 #### [facility] ([id number]) [address] [place] [address], [address] [place] [address] Platelet mean volume (Bld) [Entitic vol] 8.6 fL Normal 7-12 [facility] Comment on above: Performed By: #### B MP, CBCA, 1987-08, 45986-3 #### [facility] ([id number]) [address] [place] [address] 94140 #### 01899-6 #### [facility] ([id number]) [address] [place] [address], [address] [place] [address] Platelets (Bld) [#/Vol] 247 10*3/uL Normal 150-450 [facility] Comment on above: Performed By: #### B MP, CBCA, 1987-08, 97117-1 #### [facility] ([id number]) [address] [place] [address] 76479 #### 17473-7 #### [facility] ([id number]) [address] [facility] [address] [place] [address] RBC COUNT 4.51 X10E12/L Normal 4.10-5.70 [facility] Comment on above: Performed By: #### JAMES Sanchez MP, 1987-08, 31942-5 #### [facility] ([id number]) [address] [place] [address] 71528 #### 11977-9 #### [facility] ([id number]) [address] [address] WBC (Bld) [#/Vol] 8.5 10*3/uL Normal 4.0-11.0 [facility] Comment on above: Performed By: #### JAMES Sanchez MP, 1987-08, 78800-9 #### [facility] ([id number]) [address] [place] [address] 26201 #### 58450-5 #### [facility] ([id number]) [address] [place] [address] CREATININEon 10-23-2023 Creatinine [Mass/Vol] 2.69 mg/dL High 0.70-1.20 [facility] Comment on above: Result Comment: METH OD TRACEABLE TO IDMS STANDARD Performed By: #### B JAMES RONDON, 1987-08, 78835-2 #### [facility] ([id number]) [address] [place] [address] 74461 #### 78122-9 #### [facility] ([id number]) [address] [facility], [address] [address] GFR/1.73 sq M.predicted among non-blacks MDRD (S/P/Bld) [Vol rate/Area] 26 mL/min/{1.73_m2} Low >59 [facility] Comment on above: Result Comment: Reported eGFR is based on the CKD-EPI 2020 equation that does not use a race coefficient. Performed By: #### B JAMES RONDON, 1987-08, 76436-9 #### [facility] ([id number]) [address] [place] [address] 35362 #### 26895-5 #### [facility] ([id number]) [address] [facility], [address] [place] [address] Calcium.ionized (Bld) [Moles /Vol]on 10-23-2023 PORTABLE ICA 4.8 mg/dL Normal 4.5-5.3 [facility] Comment on above: Performed By: #### B JAMES RONDON, 1987-08, #### [facility] ([id number]) [address] [place] [address] 19027 #### 72783-6 #### [facility] ([id number]) [address] [place] [address], [address] [place] [address] ELECTROLYTESon 10-23-2023 Anion gap [Moles/Vol] 5 mmol/L Normal 5-15 [facility] Comment on above: Performed By: #### JAMES Sanchez MP, 1987-08, #### [facility] ([id number]) [address] [place] [address] 79900 #### 28207-6 #### [facility] ([id number]) [facility] [facility], [address] [place] [address] Chloride [Moles/Vol] 108 mmol/L Normal 98-109 [facility] Comment on above: Performed By: #### JAMES Sanchez MP, 1987-08, 85551-9 #### [facility] ([id number]) [address] [place] [address] 87457 #### 13952-6 #### [facility] ([id number]) [address], [address] [place] [address] CO2 [Moles/Vol] 18 mmol/L Low 22-32 [facility] Comment on above: Performed By: #### B JAMES RONDON, 1987-08, 60098-8 #### [facility] ([id number]) [address] [place] [address] 59541 #### 79479-4 #### [facility] ([id number]) [address] [facility] [facility], [address] [place] [address] Potassium [Moles/Vol] 4.1 mmol/L Normal 3.5-5.0 [facility] Comment on above: Performed By: #### B JAMES RONDON, 1987-08, 74685-2 #### [facility] ([id number]) [address] [place] [address] 58016 #### 11465-5 #### [facility] ([id number]) [address] [facility] [facility], [address] [place] [address] Sodium [Moles/Vol] 131 mmol/L Low 134-146 [facility] Comment on above: Performed By: #### JAMES Sanchez MP, 1987-08, 85044-6 #### [facility] ([id number]) [address] [place] [address] 03738 #### 04737-9 #### [facility] ([id number]) [address] [facility] [facility], [address] [place] [address] ESR Photometric method (Bld) [Velocity]on 10-23-2023 ESR, ERYTHROCYTE SEDIMENTATION RATE 89 mm/h High 0-20 [facility] Comment on above: Performed By: #### JAMES Sanchez MP, 1987-08, 98691-9 #### [facility] ([id number]) [address] [place] [address] 31080 #### 93611-4 #### [facility] ([id number]) [address] [facility] [facility], [address] [place] [address] HGB A1C (GLYCO-HGB)on 2023 Glucose [Mass/Vol] 235 mg/dL Normal [facility] Comment on above: Performed By: #### B ALCON, CBCA, 1987-08, 09558-7 #### [facility] ([id number]) [address] [place] [address] 48548 #### 69365-4 #### [facility] ([id number]) [address] [address] HbA1c (Bld) [Mass fraction] 9.8 % High 4.4-5.6 [facility] Comment on above: Result Comment: NOTE ADA Guidelines Result HgbA1c Normal : less than 5.7 % Prediabetes : 5.7 % to 6.4 % Diabetes : > 6.4 % Use with caution in patients with abnormal hemoglobin variants as the half-life of red blood cells and in vivo glycation rates are affected. Performed By: #### B ALCON, CBCA, 1987-08, 44687-6 #### [facility] ([id number]) [address] [place] [address] 50337 #### 00300-0 #### [facility] ([id number]) [address] [facility], [address] [place] [address] LIVER PANELon 10-23-2023 Albumin [Mass/Vol] 2.8 g/dL Low 3.2-5.3 [facility] Comment on above: Performed By: #### B MP, CBCA, 1987-08, #### [facility] ([id number]) [address] [place] [address] 77239 #### 15024-4 #### [facility] ([id number]) [address] [facility] [facility], [address] [place] [address] ALP [Catalytic activity/Vol] 86 U/L Normal 39-130 [facility] Comment on above: Performed By: #### Laura RONDON CBCA, 1987-08, 07648-9 #### [facility] ([id number]) [address] [place] [address] 77318 #### 32610-2 #### [facility] ([id number]) [address] [facility] [facility], [address] [place] [address] ALT [Catalytic activity/Vol] 19 U/L Normal 0-40 [facility] Comment on above: Performed By: #### Laura RONDON CBCA, 1987-08, 87258-2 #### [facility] ([id number]) [address] [place] [address] 00682 #### 68803-5 #### [facility] ([id number]) [address] [facility] [facility], [address] [place] [address] AST [Catalytic activity/Vol] 15 U/L Normal 0-41 [facility] Comment on above: Performed By: #### Laura RONDON CBCA, 1987-08, 48574-4 #### [facility] ([id number]) [address] [place] [address] 08703 #### 42160-8 #### [facility] ([id number]) [address] [facility] [facility], [address] [place] [address] Bilirubin [Mass/Vol] 0.5 mg/dL Normal 0.3-1.2 [facility] Comment on above: Performed By: #### Laura RONDON CBCA, 1987-08, 84170-7 #### [facility] ([id number]) [address] [place] [address] 39461 #### 59406-6 #### [facility] ([id number]) [address] [facility] [facility], [address] [place] [address] Bilirubin.indirect [Mass/Vol] mg/dL Normal 0.0-0.4 [facility] Comment on above: Performed By: #### B SEVEN RONDONA, 1987-08, 64045-0 #### [facility] ([id number]) [address] [place] [address] 76351 #### 62601-4 #### [facility] ([id number]) [address] [facility], [address] [place] [address] Protein [Mass/Vol] 6.4 g/dL Normal 6.0-8.0 [facility] Comment on above: Performed By: #### B ALCON CBCA, 1987-08, 14420-6 #### [facility] ([id number]) [address] [place] [address] 46696 #### 97148-6 #### [facility] ([id number]) [address] [facility], [address] [place] [address] Lipid 1996 panelon 4 Cholesterol [Mass/Vol] 135 mg/dL Low 150-200 [facility] Comment on above: Performed By: #### Laura RONDON CBCA, 1987-08, 75599-5 #### [facility] ([id number]) [address] [place] [address] 52275 #### 76500-7 #### [facility] ([id number]) [address] [facility] [facility], [address] [place] [address] Cholesterol in HDL [Mass/Vol] 40 mg/dL Normal >39 [facility] Comment on above: Result Comment: HDL <40 mg/dL - High Risk HDL > or = 40mg/dL- Desirable HDL >60 mg/dL - Negative Risk Performed By: #### JAMES Sanchez MP, 1987-08, 80677-2 #### [facility] ([id number]) [address] [place] [address] 51609 #### 08387-3 #### [facility] ([id number]) [address] [facility] [facility], [address] [place] [address] Cholesterol in LDL [Mass/Vol] 57 mg/dL Normal <130 [facility] Comment on above: Result Comment: LDL <100 mg/dL - Desirable LDL >160 mg/dL - High Risk Performed By: #### JAMES Sanchez MP, 1987-08, 78965-5 #### [facility] ([id number]) [address] [place] [address] 34361 #### 41267-0 #### [facility] ([id number]) [address] [facility] [facility], [address] [place] [address] Cholesterol in VLDL [Mass/Vol] 38 mg/dL High 0-30 [facility] Comment on above: Performed By: #### JAMES Sanchez MP, 1987-08, 09124-7 #### [facility] ([id number]) [address] [place] [address] 31612 #### 67892-8 #### [facility] ([id number]) [address] [facility] [facility], [address] [place] [address] CHOLESTEROL:HDL 3.4 Normal 1.0-5.0 [facility] Comment on above: Performed By: #### [place], 51961-8 #### [facility] ([id number]) [address] [place] [address] #### 22093-3 #### [facility] ([id number]) [address] [place] [address], [address] [place] [address] Triglyceride [Mass/Vol] 192 mg/dL High 27-150 [facility] Comment on above: Performed By: #### B ALCON CBCA, 1987-08, 76073-0 #### [facility] ([id number]) [address] [place] [address] 70925 #### 20569-2 #### [facility] ([id number]) [address] [place] [address], [address] [place] [address] MAGNESIUMon 10-23-2023 Magnesium [Mass/Vol] 2.1 mg/dL Normal 1.8-2.6 [facility] Comment on above: Performed By: #### B ALCON CBCA, 1987-08, 83804-0 #### [facility] ([id number]) [address] [place] [address] 04624 #### 70643-2 #### [facility] ([id number]) [address] [place] [address], [facility] [address] [place] [address] Natriuretic peptide.B prohor adrianne N-Terminal IA [Mass/Vol]on 10-23-2023 Natriuretic peptide B (Bld) [Mass/Vol] 1528 pg/mL High <=88 [facility] Comment on above: Result Comment: NOTE NT-proBNP [...] absence of renal failure. Test Performed by: [address] [address] Pantomimist: Brittani Nieves Ph.D.; CLIA# [id number] Performed By: #### B JAMES RONDON, 1987-08, 92816-0 #### [facility] ([id number]) [address] [place] [address] 26600 #### 93447-8 #### [facility] ([id number]) [address] [facility], [address] [place] [address] Prostate specific Ag [Mass/V ol]on 10-23-2023 PSA SCREEN 1.65 ng/mL Normal 0.00-4.00 [facility] Comment on above: Result Comment: The method used for this test is [employer] EXTENDED STAYS DXI chemiluminescent immunoassay. Values obtained by different assay methods cannot be used interchangeably. Performed By: #### B JAMES RONDON, 1987-08, #### [facility] ([id number]) [address] [place] [address] 85455 #### 65961-0 #### [facility] ([id number]) [address] [facility] [facility], [address] [place] [address] Vitamin D+Metabolites [Mass/ Vol]on 10-23-2023 VITAMIN D 25 HYD TOT 8.3 ng/mL Low 30-100 [facility] Comment on above: Result Comment: Vitamin D status 25 [place] Vitamin D Deficiency <20 ng/mL Insufficiency 20-29 ng/mL Sufficiency 30-100 ng/mL Toxicity >100 ng/mL NOTE: A pediatric reference range has not been established by the bell ringer of this kit. The [place] [employer] recommends a Vitamin D level of = or >20ng/mL in infants and children. Performed By: #### B JAMES RONDON, 1987-08, 41798-6 #### [facility] ([id number]) [address] [place] [address] 86480 #### 66835-6 #### [facility] ([id number]) [address], [address] [place] [address] BLOOD UREA NITROGENon 2023 Urea nitrogen [Mass/Vol] 33 mg/dL High 5-27 [facility] Comment on above: Performed By: #### B JAMES RONDON, 1987-08, 20339-0 #### [facility] ([id number]) [address] [place] [address] 97165 #### 79629-6 #### [facility] ([id number]) [address], [address] [place] [address] CREATININEon 09-03-2023 Creatinine [Mass/Vol] 2.42 mg/dL High 0.70-1.20 [facility] Comment on above: Result Comment: METH OD TRACEABLE TO IDMS STANDARD Performed By: #### B JAMES RONDON, 1987-08, 52928-3 #### [facility] ([id number]) [address] [place] [address] 81108 #### 31355-8 #### [facility] ([id number]) [address] [address] GFR/1.73 sq M.predicted among non-blacks MDRD (S/P/Bld) [Vol rate/Area] 29 mL/min/{1.73_m2} Low >59 [facility] Comment on above: Result Comment: Reported eGFR is based on the CKD-EPI 2020 equation that does not use a race coefficient. Performed By: #### B JAMES RONDON, 1987-08, 59286-1 #### [facility] ([id number]) [address] [place] [address] 72692 #### 21823-9 #### [facility] ([id number]) [address], [address] [place] [address] ELECTROLYTESon 09-03-2023 Anion gap [Moles/Vol] 7 mmol/L Normal 5-15 [facility] Comment on above: Performed By: #### Laura RONDON CBCA, 1987-08, 47008-3 #### [facility] ([id number]) [address] [place] [address] 12945 #### 75892-7 #### [facility] ([id number]) [address], [address] [place] [address] Chloride [Moles/Vol] 106 mmol/L Normal 98-109 [facility] Comment on above: Performed By: #### SEVEN Sanchez MPA, 1987-08, 39772-4 #### [facility] ([id number]) [address] [place] [address] 79821 #### 27823-4 #### [facility] ([id number]) [address], [address] [place] [address] CO2 [Moles/Vol] 21 mmol/L Low 22-32 [facility] Comment on above: Performed By: #### Laura RONDON CBCA, 1987-08, 18737-1 #### [facility] ([id number]) [address] [place] [address] 99035 #### 48269-8 #### [facility] ([id number]) [address], [address] [place] [address] Potassium [Moles/Vol] 4.2 mmol/L Normal 3.5-5.0 [facility] Comment on above: Performed By: #### SEVEN Sanchez MPA, 1987-08, 38001-7 #### [facility] ([id number]) [address] [place] [address] 91952 #### 67738-0 #### [facility] ([id number]) [address], [address] [place] [address] Sodium [Moles/Vol] 134 mmol/L Normal 134-146 [facility] Comment on above: Performed By: #### JAMES Sanchez MP, 1987-08, 86589-2 #### [facility] ([id number]) [address] [place] [address] 50624 #### 60859-2 #### [facility] ([id number]) [address] [place] [address], [address] [place] [address] Natriuretic peptide.B prohor adrianne N-Terminal [Mass/Vol]on 09-03-2023 NT Pro BNP See Below Normal [facility] Comment on above: Result Comment: NOTE TEST RESULT FLAG UNIT REF.RANGE ----- PRO B Natr Peptide 933 H pg/mL <125 Test Performed By: [facility] [address] [place] [address] Kerfer Machine Operator: Charlotte Hart III #[id number] Performed By: #### JAMES Sanchez MP, 1987-08, 45041-6 #### [facility] ([id number]) [address] [place] [address] 56958 #### 52462-8 #### [facility] ([id number]) [address] [place] [address], [address] [place] [address] BLOOD UREA NITROGENon 2023 Urea nitrogen [Mass/Vol] 38 mg/dL High 5-27 [facility] Comment on above: Performed By: #### JAMES Sanchez MP, 1987-08, 76858-5 #### [facility] ([id number]) [address] [place] [address] 22528 #### 99227-3 #### [facility] ([id number]) [address], [address] [place] [address] CREATININEon 07-31-2023 Creatinine [Mass/Vol] 2.76 mg/dL High 0.70-1.20 [facility] Comment on above: Result Comment: METH OD TRACEABLE TO IDMS STANDARD Performed By: #### B JAMES RONDON, 1987-08, 36285-1 #### [facility] ([id number]) [address] [place] [address] 50261 #### 52284-1 #### [facility] ([id number]) [address] [facility] [facility], [address] [place] [address] GFR/1.73 sq M.predicted among non-blacks MDRD (S/P/Bld) [Vol rate/Area] 25 mL/min/{1.73_m2} Low >59 [facility] Comment on above: Result Comment: Reported eGFR is based on the CKD-EPI 2020 equation that does not use a race coefficient. Performed By: #### B JAMES RONDON, 1987-08, 65188-5 #### [facility] ([id number]) [address] [place] [address] 80877 #### 67002-1 #### [facility] ([id number]) [address], [address] [place] [address] ELECTROLYTESon 07-31-2023 Anion gap [Moles/Vol] 7 mmol/L Normal 5-15 [facility] Comment on above: Performed By: #### B JAMES RONDON, 1987-08, 61539-7 #### [facility] ([id number]) [address] [place] [address] 52702 #### 03473-3 #### [facility] ([id number]) [address], [address] [place] [address] Chloride [Moles/Vol] 104 mmol/L Normal 98-109 [facility] Comment on above: Performed By: #### B ALCON, CBCA, 1987-08, 88917-8 #### [facility] ([id number]) [address] [place] [address] 99035 #### 95274-8 #### [facility] ([id number]) [address] [place] [address] CO2 [Moles/Vol] 21 mmol/L Low 22-32 [facility] Comment on above: Performed By: #### B ALCON, CBCA, 1987-08, 73935-9 #### [facility] ([id number]) [address] [place] [address] 39445 #### 65625-0 #### [facility] ([id number]) [address], [address] [place] [address] Potassium [Moles/Vol] 4.3 mmol/L Normal 3.5-5.0 [facility] Comment on above: Performed By: #### Laura RONDON CBCA, 1987-08, 07176-3 #### [facility] ([id number]) [address] [place] [address] 16371 #### 39954-7 #### [facility] ([id number]) [address], [address] [place] [address] Sodium [Moles/Vol] 132 mmol/L Low 134-146 [facility] Comment on above: Performed By: #### Laura RONDON CBCA, 1987-08, 60928-8 #### [facility] ([id number]) [address] [place] [address] 29054 #### 16701-1 #### [facility] ([id number]) [address] [place] [address] Natriuretic peptide.B melony silver N-Terminal [Mass/Vol]on 07-31-2023 NT Pro BNP See Below Normal [facility] Comment on above: Result Comment: NOTE TEST RESULT FLAG UNIT REF.RANGE ----- PRO B Natr Peptide 1296 H pg/mL <125 Test Performed By: [facility] [employer] [address] [place] [address] Kerfer Machine Operator: Tyler Valle III, M.D. CLIA #[id number] Performed By: #### B JAMES RONDON, 1987-08, 38022-6 #### [facility] ([id number]) [address] [place] [address] #### 44227-4 #### [facility] ([id number]) [address] [place] [address], [place] [address] BLOOD UREA NITROGENon 2023 Urea nitrogen [Mass/Vol] 34 mg/dL High 5-27 [facility] Comment on above: Performed By: #### JAMES Sanchez MP, 1987-08, 83438-2 #### [facility] ([id number]) [address] [place] [address] 75246 #### 60751-5 #### [facility] ([id number]) [address] [place] [address], [facility] [address] [place] [address] CREATININEon 07-02-2023 Creatinine [Mass/Vol] 3.13 mg/dL High 0.70-1.20 [facility] Comment on above: Result Comment: METH OD TRACEABLE TO IDMS STANDARD Performed By: #### B JAMES RONDON, 59948-7 #### [facility] ([id number]) [address] [place] [address] #### [id number] #### [facility] ([id number]) [address], [address] [place] [address] GFR/1.73 sq M.predicted among non-blacks MDRD (S/P/Bld) [Vol rate/Area] 22 mL/min/{1.73_m2} Low >59 [facility] Comment on above: Result Comment: Reported eGFR is based on the CKD-EPI 2020 equation that does not use a race coefficient. Performed By: #### B JAMES RONDON, 1987-08, 48338-4 #### [facility] ([id number]) [address] [place] [address] #### [id number] #### [facility] ([id number]) [address], [address] [place] [address] ELECTROLYTESon 07-02-2023 Anion gap [Moles/Vol] 8 mmol/L Normal 5-15 [facility] Comment on above: Performed By: #### B JAMES RONDON, 1987-08, 51139-0 #### [facility] ([id number]) [address] [place] [address] #### [id number] #### [facility] ([id number]) [address], [address] [place] [address] Chloride [Moles/Vol] 106 mmol/L Normal 98-109 [facility] Comment on above: Performed By: #### B JAMES RONDON, 1987-08, 50646-6 #### [facility] ([id number]) [address] [place] [address] #### [id number] #### [facility] ([id number]) [address], [address] [place] [address] CO2 [Moles/Vol] 20 mmol/L Low 22-32 [facility] Comment on above: Performed By: #### B JAMES RONDON, 1987-08, 92768-8 #### [facility] ([id number]) [address] [place] [address] #### [id number] #### [facility] ([id number]) [address] [facility], [address] [place] [address] Potassium [Moles/Vol] 4.7 mmol/L Normal 3.5-5.0 [facility] Comment on above: Performed By: #### B ALCON, [facility], 1987-08, 67471-9 #### [facility] ([id number]) [address] [place] [address] 85340 #### 94753-2 #### [facility] ([id number]) [address] [facility], [address] [place] [address] Sodium [Moles/Vol] 134 mmol/L Normal 134-146 [facility] Comment on above: Performed By: #### B ALCON, CBCA, 1987-08, 15230-5 #### [facility] ([id number]) [address] [place] [address] 43370 #### 64850-1 #### [facility] ([id number]) [address] [facility] [facility], [address] [place] [address] Natriuretic peptide.B prohor adrianne N-Terminal [Mass/Vol]on 07-02-2023 NT Pro BNP See Below Normal [facility] Comment on above: Result Comment: NOTE TEST RESULT FLAG UNIT REF.RANGE ----- PRO B Natr Peptide 413 H pg/mL <125 Test Performed By: [facility] Computer [address] [place] [address] Kerfer Machine Operator: Tyler Valle III, M.D. [place] #[id number] Performed By: #### B JAMES RONDON, 1987-08, 75078-0 #### [facility] ([id number]) [address] [place] [address] 97499 #### 87647-4 #### [facility] ([id number]) [address] [facility], [address] [place] [address] BLOOD UREA NITROGENon 2023 Urea nitrogen [Mass/Vol] 33 mg/dL High 5-27 [facility] Comment on above: Performed By: #### B JAMES RONDON, 1987-08, 83701-5 #### [facility] ([id number]) [address] [place] [address] 12970 #### 57303-2 #### [facility] ([id number]) [address] [facility], [address] [place] [address] CREATININEon 06-04-2023 Creatinine [Mass/Vol] 2.37 mg/dL High 0.70-1.20 [facility] Comment on above: Result Comment: METH OD TRACEABLE TO IDMS STANDARD Performed By: #### JAMES Sanchez MP, 1987-08, 91148-0 #### [facility] ([id number]) [address] [place] [address] 48283 #### 33233-2 #### [facility] ([id number]) [address] [facility], [address] [place] [address] GFR/1.73 sq M.predicted among non-blacks MDRD (S/P/Bld) [Vol rate/Area] 30 mL/min/{1.73_m2} Low >59 [facility] Comment on above: Result Comment: Reported eGFR is based on the CKD-EPI 2020 equation that does not use a race coefficient. Performed By: #### JAMES Sanchez MP, 1987-08, 74558-5 #### [facility] ([id number]) [address] [place] [address] 97013 #### 76549-0 #### [facility] ([id number]) [address], [address] [place] [address] ELECTROLYTESon 06-04-2023 Anion gap [Moles/Vol] 7 mmol/L Normal 5-15 [facility] Comment on above: Performed By: #### Laura RONDON CBCA, 1987-08, 43331-0 #### [facility] ([id number]) [address] [place] [address] 88686 #### 89800-2 #### [facility] ([id number]) [address] [facility], [address] [place] [address] Chloride [Moles/Vol] 106 mmol/L Normal 98-109 [facility] Comment on above: Performed By: #### Laura RONDON CBCA, 1987-08, 14898-8 #### [facility] ([id number]) [address] [place] [address] 98244 #### 90548-1 #### [facility] ([id number]) [address], [address] [place] [address] CO2 [Moles/Vol] 20 mmol/L Low 22-32 [facility] Comment on above: Performed By: #### Laura RONDON CBCA, 1987-08, 62663-4 #### [facility] ([id number]) [address] [place] [address] 12222 #### 00427-0 #### [facility] ([id number]) [address], [address] [place] [address] Potassium [Moles/Vol] 4.6 mmol/L Normal 3.5-5.0 [facility] Comment on above: Performed By: #### Laura RONDON CBCA, 1987-08, #### [facility] ([id number]) [address] [place] [address] 42262 #### 41145-9 #### [facility] ([id number]) [address] [place] [address], [address] [place] [address] Sodium [Moles/Vol] 133 mmol/L Low 134-146 [facility] Comment on above: Performed By: #### Laura RONDON CBCA, 1987-08, 52569-7 #### [facility] ([id number]) [address] [place] [address] 49126 #### 60574-9 #### [facility] ([id number]) [address] [place] [address], [address] [address] Natriuretic peptide.B prohor adrianne N-Terminal [Mass/Vol]on 06-04-2023 NT Pro BNP See Below Normal [facility] Comment on above: Result Comment: NOTE TEST RESULT FLAG UNIT REF.RANGE ----- PRO B Natr Peptide 526 H pg/mL <125 Test Performed By: [place] [address] Kerfer Machine Operator: Charlotte Hart III #[id number] Performed By: #### Laura RONDON CBCA, 1987-08, 54508-1 #### [facility] ([id number]) [address] [place] [address] 34461 #### 49628-0 #### [facility] ([id number]) [address] [place] [address], [address] [place] [address] Cult,Urineon 06-03-2023 Cult,Urine Specimen Description .VOIDED URINE [...] Tobramycin 4 SUSCEPTIBLE Trimethoprim/Sulfa >=320 RESISTANT Resistant [facility] Comment on above: Performed By: #### U RC #### [facility] [address] [place] [address] Pantomimist: Griffin Carrion MD [facility] [address] [place] [address] [place] [address] Pantomimist: Jameson Aaron MD UA w/Reflex Cultureon 2023 Bilirubin, SemiQt,Ur Negative Normal NEG [facility] Comment on above: Performed By: #### U AX, UMICAO #### [address] [place] [address] Pantomimist: Jameson Aaron MD Blood, Urine TRACE Abnormal NEG [facility] Comment on above: Performed By: #### U AX, UMICAO #### [facility] [address] [place] [address] Pantomimist: Jameson Aaron MD Clarity (U) SLIGHTLY CLOUDY Abnormal CLEAR [facility] Comment on above: Performed By: #### U AX, UMICAO #### [facility] [address] [place] [address] [place] [address] Pantomimist: Jameson Aaron MD Color (U) Yellow Normal YEL [facility] Comment on above: Performed By: #### U AX, UMICAO #### [facility] [address] [place], [place] [id number] Pantomimist: Jameson Aaron MD Glucose Ql (U) 3+ mg/dL Abnormal NEG [facility] Comment on above: Performed By: #### U AX, UMICAO #### [facility] [address] [place], [place] [id number] Pantomimist: Jameson Aaron MD Ketones Ql (U) Negative Normal NEG [facility] Comment on above: Performed By: #### U AX, UMICAO #### [facility] [address] [place], [place] [phone] Pantomimist: Jameson Aaron MD Leukocyte esterase Test strip Ql (U) TRACE Abnormal NEG [facility] Comment on above: Performed By: #### U AX, UMICAO #### [address] [place], [place] [phone] Pantomimist: Jameson Aaron MD Nitrite,Ur Negative Normal NEG [facility] Comment on above: Performed By: #### U AX, UMICAO #### [address] [place], [place] [phone] Pantomimist: Jameson Aaron MD PH,Ur 5.5 Normal 5.0-9.0 [facility] Comment on above: Performed By: #### U AX, UMICAO #### [facility] [address] [place] [address] [place] [address] Pantomimist: Jameson Aaron MD Protein Ql (U) 2+ mg/dL Abnormal NEG [facility] Comment on above: Performed By: #### U AX, UMICAO #### [facility] [address] [place], [place] [phone] Pantomimist: Jameson Aaron MD Spec. Ferdinand,Ur 1.025 High 1.010-1.020 [facility] Comment on above: Performed By: #### U AX, UMICAO #### [facility] [address] [place] [phone] Pantomimist: Jameson Aaron MD Urobilinogen,Ur Normal Normal 0.0-1.0 [facility] Comment on above: Performed By: #### U AX, UMICAO #### [facility] [address] [place], [place] [phone] Pantomimist: Jameson Aaron MD Urinalysis,Microon 4 Bacteria 2+ Abnormal NONE [facility] Comment on above: Performed By: #### U AX, UMICAO #### [facility] [address] [place], [place] [phone] Pantomimist: Jameson Aaron MD Epithelial cells LM Ql (Urine sed) 0 TO 2 Normal 0-[address] [place] [address] Comment on above: Performed By: #### U AX, UMICAO #### [facility] [address] [place], [place] [phone] Pantomimist: Jameson Aaron MD Epithelial, Renal 0 TO 2 Normal 0 [facility] Comment on above: Performed By: #### U AX, UMICAO #### [facility] [address] [place], [place] [phone] Pantomimist: Jameson Aaron MD Urine RBC's 0 TO 2 Normal 0-2 [facility] Comment on above: Performed By: #### U AX, UMICAO #### [facility] [address] [place], [facility] Pantomimist: Jameson Aarno MD Urine WBC's 10 TO 20 Normal 0-5 [facility] Comment on above: Performed By: #### U AX, UMICAO #### [facility] [address] [place], [place] 1546483 Pantomimist: Jameson Aaron MD Yeast PRESENCE NOTED Abnormal [facility] Comment on above: Performed By: #### U AX, UMICAO #### [facility] [address] [place] [address] Pantomimist: Jameson Aaron MD BLOOD UREA NITROGENon 2023 Urea nitrogen [Mass/Vol] 44 mg/dL High 5-27 [facility] Comment on above: Performed By: #### E LEC, 3094-0, [place], 88357-6 #### [facility] ([id number]) [address] [place] [address] 09821 #### 83638-5, HA1C #### [facility] ([id number]) [address] [facility], [address] [place] [address] CREATININEon 05-06-2023 Creatinine [Mass/Vol] 2.71 mg/dL High 0.70-1.20 [facility] Comment on above: Result Comment: METH OD TRACEABLE TO IDMS STANDARD Performed By: #### E LEC, 3094-0, [place], 46870-7 #### [facility] ([id number]) [address] [place] [address] 71727 #### 44194-7, HA1C #### [facility] ([id number]) [address] [facility], [address] [address] GFR/1.73 sq M.predicted among non-blacks MDRD (S/P/Bld) [Vol rate/Area] 26 mL/min/{1.73_m2} Low >59 [facility] Comment on above: Result Comment: Reported eGFR is based on the CKD-EPI 2020 equation that does not use a race coefficient. Performed By: #### E LEC, 3094-0, [place], 98075-7 #### [facility] ([id number]) [address] [place] [address] 05162 #### 84877-2, HA1C #### [facility] ([id number]) [address] [facility], [address] [place] [address] ELECTROLYTESon 05-06-2023 Anion gap [Moles/Vol] 11 mmol/L Normal 5-15 [facility] Comment on above: Performed By: #### E LEC, 3094-0, [place], 07439-9 #### [facility] ([id number]) [address] [place] [address] 43185 #### 66041-2, HA1C #### [facility] ([id number]) [address], [address] [place] [address] Chloride [Moles/Vol] 101 mmol/L Normal 98-109 [facility] Comment on above: Performed By: #### E LEC, 3094-0, [place], 32959-8 #### [facility] ([id number]) [address] [place] [address] 01707 #### 19167-7, HA1C #### [facility] ([id number]) [address], [address] [place] [address] CO2 [Moles/Vol] 18 mmol/L Low 22-32 [facility] Comment on above: Performed By: #### E LEC, 3094-0, [place], 89535-2 #### [facility] ([id number]) [address] [place] [address] 28901 #### 09976-0, HA1C #### [facility] ([id number]) [address] [place] [address] Potassium [Moles/Vol] 4.4 mmol/L Normal 3.5-5.0 [facility] Comment on above: Performed By: #### E LEC, 3094-0, [place], 60639-9 #### [facility] ([id number]) [address] [place] [address] 85912 #### 87716-9, HA1C #### [facility] ([id number]) [address] [place] [address] Sodium [Moles/Vol] 130 mmol/L Low 134-146 [facility] Comment on above: Performed By: #### Tiki LEC, 3094-0, [place], 51768-4 #### [facility] ([id number]) [address] [place] [address] #### 86893-9, HA1C #### [facility] ([id number]) [address] [facility], [facility] [address] [place] [address] HGB A1C (GLYCO-HGB)on 2023 Glucose [Mass/Vol] 260 mg/dL Normal [facility] Comment on above: Performed By: #### Laura RONDON, CBCA, 1987-08, 26229-2 #### [facility] ([id number]) [address] [place] [address] 38279 #### 78264-8 #### [facility] ([id number]) [address] [place] [address], [facility] [address] [place] [address] HbA1c (Bld) [Mass fraction] 10.7 % High 4.4-5.6 [facility] Comment on above: Result Comment: NOTE ADA Guidelines Result HgbA1c Normal : less than 5.7 % Prediabetes : 5.7 % to 6.4 % Diabetes : > 6.4 % Use with caution in patients with abnormal hemoglobin variants as the half-life of red blood cells and in vivo glycation rates are affected. Performed By: #### Laura MP, CBCA, 1987-08, 17323-2 #### [facility] ([id number]) [address] [place] [address] 22526 #### 77358-9 #### [facility] ([id number]) [address] [facility], [facility] [address] [place] [address] Lipid 1996 panelon 4 Cholesterol [Mass/Vol] 205 mg/dL High 150-200 [facility] Comment on above: Performed By: #### Tiki LEC, 3094-0, [place], 19402-1 #### [facility] ([id number]) [address] [place] [address] 15695 #### 31084-0, HA1C #### [facility] ([id number]) [address] [facility], [address] [place] [address] Cholesterol in HDL [Mass/Vol] 35 mg/dL Low >39 [facility] Comment on above: Result Comment: HDL <40 mg/dL - High Risk HDL > or = 40mg/dL- Desirable HDL >60 mg/dL - Negative Risk Performed By: #### Tiki LEC, 3094-0, [place], 77600-0 #### [facility] ([id number]) [address] [place] [address] 27769 #### 98253-9, HA1C #### [facility] ([id number]) [address] [facility], [address] [place] [address] Cholesterol in LDL [Mass/Vol] 120 mg/dL Normal <130 [facility] Comment on above: Result Comment: LDL <100 mg/dL - Desirable LDL >160 mg/dL - High Risk Performed By: #### Tiki LEC, 3094-0, [place], 22076-4 #### [facility] ([id number]) [address] [place] [address] 97691 #### 83117-3, HA1C #### [facility] ([id number]) [address] [place] [address], [address] [place] [address] Cholesterol in VLDL [Mass/Vol] 50 mg/dL High 0-30 [facility] Comment on above: Performed By: #### E LEC, 3094-0, [place], 57388-4 #### [facility] ([id number]) [address] [place] [address] 18423 #### 72157-6, HA1C #### [facility] ([id number]) [address] [place] [address], [address] [place] [address] CHOLESTEROL:HDL 5.9 High 1.0-5.0 [facility] Comment on above: Performed By: #### E LEC, 3094-0, [place], 81011-2 #### [facility] ([id number]) [address] [place] [address] 82216 #### 30544-5, HA1C #### [facility] ([id number]) [address] [place] [address], [address] [place] [address] Triglyceride [Mass/Vol] 248 mg/dL High 27-150 [facility] Comment on above: Performed By: #### Tiki LEC, 3094-0, [place], 54928-7 #### [facility] ([id number]) [address] [place] [address] 01771 #### 93729-9, HA1C #### [facility] ([id number]) [address] [place] [address], [address] [place] [address] MICROALBUMIN - ALBUMIN:CREAT ININE URINE RATIOon 05-06-2023 ALB/CREAT RATIO 2747.0 mg/g creat High 0.0-30.0 [facility] Comment on above: Performed By: #### B MP, CBCA, 1987-08, 61399-4 #### [facility] ([id number]) [address] [place] [address] 30064 #### 57738-0 #### [facility] ([id number]) [address] [facility], [address] [place] [address] Albumin DL <= 20 mg/L (U) [Mass/Vol] 195.2 mg/dL High 0.0-1.9 [facility] Comment on above: Performed By: #### JAMES Sanchez MP, 1987-08, 04276-5 #### [facility] ([id number]) [address] [place] [address] 04261 #### 41436-6 #### [facility] ([id number]) [address] [facility], [address] [place] [address] URINE CREAT 71.06 mg/dL Normal [facility] Comment on above: Performed By: #### JAMES Sanchez MP, 1987-08, 91864-8 #### [facility] ([id number]) [address] [place] [address] 29122 #### 83818-7 #### [facility] ([id number]) [address] [facility], [address] [place] [address] Natriuretic peptide.B prohor adrianne N-Terminal [Mass/Vol]on 05-06-2023 NT Pro BNP See Below Normal [facility] Comment on above: Result Comment: NOTE TEST RESULT FLAG UNIT REF.RANGE ----- PRO B Natr Peptide 314 H pg/mL <125 Test Performed By: [facility] [employer] [address] [place] [address] Kerfer Machine Operator: Charlotte Hart III #[id number] Performed By: #### JAMES Sanchez MP, 1987-08, 25001-9 #### [facility] ([id number]) [address] [place] [address] 78220 #### 96346-7 #### [facility] ([id number]) [address] [place] [address], [address] [place] [address] URINALYSISon 05-06-2023 Bilirubin Ql (U) Negative Normal NEG [facility] Comment on above: Performed By: #### U A #### [facility] ([id number]) [address] [place] [address] BLOOD/HGB Trace Abnormal NEG [facility] Comment on above: Performed By: #### U A #### [facility] ([id number]) [address] [place] [address] 14103 Color (U) YELLOW Normal YELLOW [facility] Comment on above: Performed By: #### U A #### [facility] ([id number]) [address] [place] [address]314 Glucose Ql (U) >1000 Abnormal NEG [facility] Comment on above: Performed By: #### U A #### [facility] ([id number]) [address] [place] [address] 20169 Ketones Ql (U) Negative Normal NEG [facility] Comment on above: Performed By: #### U A #### [facility] ([id number]) [address] [place] [address] 14020 Leukocyte esterase Test strip Ql (U) Negative Normal NEG [facility] Comment on above: Result Comment: HIGH CONCENTRATIONS OF GLUCOSE MAY DECREASE THE REACTIVITY OF THE DIPSTICK LEUKOCYTE TEST PAD. Performed By: #### U A #### [facility] ([id number]) [address] [place] [address] [place] [address] MUCOUS PRESENT Abnormal NONE [facility] Comment on above: Performed By: #### U A #### [facility] ([id number]) [address] [place] [address]6640 Nitrite Ql (U) Positive Abnormal NEG [facility] Comment on above: Performed By: #### U A #### [facility] ([id number]) [address] [place] [address] 20398 pH (U) 6.0 [pH] Normal 5.0-8.5 [facility] Comment on above: Performed By: #### U A #### [facility] ([id number]) [address] [place] [address] 00715 Protein Ql (U) >300 Abnormal NEG [facility] Comment on above: Performed By: #### U A #### [facility] ([id number]) [address] [place] [address] 07680 R.B.CELLS 5 /hpf Normal 0-5 [facility] Comment on above: Performed By: #### U A #### [facility] ([id number]) [address] [place] [address] 55675 Specific gravity (U) [Rel density] 1.015 Normal 1.003-1.035 [facility] Comment on above: Performed By: #### U A #### [facility] ([id number]) [address] [place] [address] 26040 SQUAMOUS EPITHELIUM 4 /hpf Normal 0-5 [facility] Comment on above: Performed By: #### U A #### [facility] ([id number]) [address] [place] [address] 90522 TURBIDITY HAZY Abnormal CLEAR [facility] Comment on above: Performed By: #### U A #### [facility] ([id number]) [address] [place] [address] 57172 Urobilinogen Qn (U) 0.2 {Chaya'U}/dL Normal <1.1 [facility] Comment on above: Performed By: #### U A #### [facility] ([id number]) [address] [place] [address] 39413 W.B.CELLS >100 High 0-5 [facility] Comment on above: Performed By: #### U A #### [facility] ([id number]) [address] [place] [address] 79483 URINE CULTUREon 05-06-2023 Bacteria identified Cx Nom (U) SPECIMEN NOTES URINE RECEIVED WITHOUT PRESERVATIVE CULTURE RESULTS MULTIPLE SPECIES PRESENT. PROBABLE COLLECTION CONTAMINATION. SUGGEST REPEAT SPECIMEN. URINE RECEIVED WITHOUT PRESERVATIVE-DELAYS IN TRANSPORT MAY AFFECT RESULTS.INTERPRET WITH CAUTION AND CLINICAL CORRELATION IS RECOMMENDED. Normal [facility] Comment on above: Performed By: #### B ALCON CBCA, 1987-08, 29281-8 #### [facility] ([id number]) [address] [place] [address] 43597 #### 86034-7 #### [facility] ([id number]) [address] [facility], [address] [place] [address] BASIC METABOLIC PANLon 04-19 Anion gap [Moles/Vol] 6 mmol/L Normal 5-15 [facility] Comment on above: Performed By: #### B ALCON CBCA, 1987-08, 66752-9 #### [facility] ([id number]) [address] [place] [address] 95387 #### 88308-6 #### [facility] ([id number]) [address] [facility], [address] [place] [address] Calcium [Mass/Vol] 8.6 mg/dL Normal 8.5-10.5 [facility] Comment on above: Performed By: #### B ALCON CBCA, 1987-08, 56847-1 #### [facility] ([id number]) [address] [place] [address] #### 95472-4 #### [facility] ([id number]) [address] [facility], [address] [place] [address] Chloride [Moles/Vol] 101 mmol/L Normal 98-109 [facility] Comment on above: Performed By: #### B JAMES RONDON, 1987-08, 37099-7 #### [facility] ([id number]) [address] [place] [address] 25895 #### 17563-6 #### [facility] ([id number]) [address] [place] [address], [address] [place] [address] CO2 [Moles/Vol] 19 mmol/L Low 22-32 [facility] Comment on above: Performed By: #### JAMES Sanchez MP, 1987-08, 12651-3 #### [facility] ([id number]) [address] [place] [address] #### [id number] #### [facility] ([id number]) [address] [place] [address], [address] [place] [address] Creatinine [Mass/Vol] 2.57 mg/dL High 0.70-1.20 [facility] Comment on above: Result Comment: METH OD TRACEABLE TO IDMS STANDARD Performed By: #### B JAMES RONDON, 1987-08, 00223-4 #### [facility] ([id number]) [address] [place] [id number] #### [id number] #### [facility] ([id number]) [address] [facility], [address] [place] [address] GFR/1.73 sq M.predicted among non-blacks MDRD (S/P/Bld) [Vol rate/Area] 27 mL/min/{1.73_m2} Low >59 [facility] [facility] Comment on above: Result Comment: Reported eGFR is based on the CKD-EPI 2020 equation that does not use a race coefficient. Performed By: #### JAMES Sanchez MP, 1987-08, 52140-8 #### [facility] ([id number]) [address] [place] [address] 09925 #### 37976-5 #### [facility] ([id number]) [address], [address] [place] [address] Glucose [Mass/Vol] 377 mg/dL High 65-99 [facility] Comment on above: Performed By: #### B JAMES RONDON, 1987-08, 58672-0 #### [facility] ([id number]) [address] [place] [address] 71907 #### 96873-1 #### [facility] ([id number]) [address], [address] [place] [address] Potassium [Moles/Vol] 4.2 mmol/L Normal 3.5-5.0 [facility] Comment on above: Performed By: #### JAMES Sanchez MP, 1987-08, 18726-8 #### [facility] ([id number]) [address] [place] [address] 12919 #### 04385-3 #### [facility] ([id number]) [address], [address] [place] [address] Sodium [Moles/Vol] 126 mmol/L Low 134-146 [facility] Comment on above: Performed By: #### B JAMES RONDON, 1987-08, 44850-8 #### [facility] ([id number]) [address] [place] [address] 83532 #### 04343-8 #### [facility] ([id number]) [address], [address] [place] [address] Urea nitrogen [Mass/Vol] 30 mg/dL High 5-27 [facility] Comment on above: Performed By: #### B MP, CBCA, 1987-08, 20623-8 #### [facility] ([id number]) [address] [place] [address] 57493 #### 55121-1 #### [facility] ([id number]) [address] [facility], [address] [place] [address] CBC AND AUTO DIFFon 04-19-20 23 ABSOLUTE BASOPHIL 0.1 X10E9/L Normal 0.0-0.2 [facility] Comment on above: Performed By: #### B ALCON, CBCA, 1987-08, 93597-5 #### [facility] ([id number]) [address] [place] [address] 74672 #### 57664-8 #### [facility] ([id number]) [address] [facility] [facility], [address] [place] [address] ABSOLUTE NEUTROPHIL 8.8 X10E9/L High 1.5-6.6 [facility] Comment on above: Performed By: #### B ALCON, CBCA, 1987-08, 15451-9 #### [facility] ([id number]) [address] [place] [address] 44080 #### 93612-2 #### [facility] ([id number]) [address], [address] [place] [address] Basophils/100 WBC (Bld) 0.5 % Normal [facility] Comment on above: Performed By: #### B MP, CBCA, 1987-08, 63312-5 #### [facility] ([id number]) [address] [place] [address] 88662 #### 93031-0 #### [facility] ([id number]) [address] [facility], [address] [place] [address] Eosinophils (Bld) [#/Vol] 0.3 10*3/uL Normal 0.0-0.4 [facility] Comment on above: Performed By: #### Laura RONDON CBCA, 1987-08, 08846-7 #### [facility] ([id number]) [address] [place] [address] 31610 #### 25401-8 #### [facility] ([id number]) [address] [facility], [address] [place] [address] Eosinophils/100 WBC (Bld) 2.6 % Normal [facility] Comment on above: Performed By: #### B ALCON CBCA, 1987-08, #### [facility] ([id number]) [address] [place] [address] 20531 #### 20954-7 #### [facility] ([id number]) [address] [facility], [address] [place] [address] Erythrocyte distribution width (RBC) [Ratio] 15.5 % High 11.5-15.0 [facility] Comment on above: Performed By: #### Laura RONDON CBCA, 1987-08, #### [facility] ([id number]) [address] [place] [address] 61954 #### 77568-5 #### [facility] ([id number]) [address] [facility], [address] [place] [address] Hematocrit (Bld) [Volume fraction] 36.8 % Low 39-49 [facility] Comment on above: Performed By: #### Laura RONDON CBCA, 1987-08, #### [facility] ([id number]) [address] [place] [address] 58168 #### 05977-1 #### [facility] ([id number]) [address] [facility], [address] [place] [address] Hemoglobin (Bld) [Mass/Vol] 12.0 g/dL Low 13.0-17.0 [facility] Comment on above: Performed By: #### B ALCON CBCA, 1987-08, #### [facility] ([id number]) [address] [place] [address] 91223 #### 64503-6 #### [facility] ([id number]) [address] [facility], [address] [place] [address] Lymphocytes (Bld) [#/Vol] 1.9 10*3/uL Normal 1.0-3.5 [facility] Comment on above: Performed By: #### Laura RONDON CBCA, 1987-08, #### [facility] ([id number]) [address] [place] [address] 23756 #### 65747-2 #### [facility] ([id number]) [address], [address] [place] [address] Lymphocytes/100 WBC (Bld) 15.1 % Normal [facility] Comment on above: Performed By: #### Laura RONDON CBCA, 1987-08, #### [facility] ([id number]) [address] [place] [address] 80957 #### 72425-1 #### [facility] ([id number]) [address] [facility], [address] [place] [address] MCH (RBC) [Entitic mass] 28.2 pg Normal 27-34 [facility] Comment on above: Performed By: #### Laura RONDON CBCA, 1987-08, #### [facility] ([id number]) [address] [place] [address] 96786 #### 52660-6 #### [facility] ([id number]) [address] [place] [address] MCHC (RBC) [Mass/Vol] 32.7 g/dL Normal 32-36 [facility] Comment on above: Performed By: #### B ALCON CBCA, 1987-08, #### [facility] ([id number]) [address] [place] [address] 44415 #### 11767-5 #### [facility] ([id number]) [address], [address] [place] [address] MCV (RBC) [Entitic vol] 86 fL Normal 80-100 [facility] Comment on above: Performed By: #### B ALCON CBCA, 1987-08, #### [facility] ([id number]) [address] [place] [address] 11160 #### 17391-8 #### [facility] ([id number]) [address] [facility], [address] [place] [address] Monocytes (Bld) [#/Vol] 1.4 10*3/uL High 0-0.9 [facility] Comment on above: Performed By: #### Laura RONDON CBCA, 1987-08, #### [facility] ([id number]) [address] [place] [address] 22169 #### 48077-3 #### [facility] ([id number]) [address], [address] [place] [address] Monocytes/100 WBC (Bld) 11.2 % Normal [facility] Comment on above: Performed By: #### Laura RONDON CBCA, 1987-08, #### [facility] ([id number]) [address] [place] [address] 43853 #### 84919-8 #### [facility] ([id number]) [address] [facility], [address] [place] [address] Neutrophils/100 WBC (Bld) 70.6 % Normal [facility] Comment on above: Performed By: #### Laura RONDON CBCA, 1987-08, #### [facility] ([id number]) [address] [place] [address] 39869 #### 31280-5 #### [facility] ([id number]) [address] [facility], [address] [place] [address] Platelet mean volume (Bld) [Entitic vol] 7.6 fL Normal 7-12 [facility] Comment on above: Performed By: #### Laura RONDON, CBCA, 1987-08, #### [facility] ([id number]) [address] [place] [address] 96816 #### 03807-0 #### [facility] ([id number]) [address] [facility], [address] [place] [address] Platelets (Bld) [#/Vol] 325 10*3/uL Normal 150-450 [facility] Comment on above: Performed By: #### Laura RONDON, CBCA, 1987-08, 01060-4 #### [facility] ([id number]) [address] [place] [address] 42110 #### 47767-0 #### [facility] ([id number]) [address] [facility], [address] [place] [address] RBC COUNT 4.27 X10E12/L Normal 4.10-5.70 [facility] Comment on above: Performed By: #### Laura RONDON, CBCA, 1987-08, 23254-7 #### [facility] ([id number]) [address] [place] [address] 92192 #### 57711-6 #### [facility] ([id number]) [address] [place] [address] WBC (Bld) [#/Vol] 12.5 10*3/uL High 4.0-11.0 [facility] Comment on above: Performed By: #### B ALCON CBCA, 1987-08, 98537-4 #### [facility] ([id number]) [address] [place] [address] 64359 #### 27689-4 #### [facility] ([id number]) [address] [facility] [facility], [address] [place] [address] CRP [Mass/Vol]on 04-19-2023 C REACTIVE PROTEIN 7.8 mg/dL High 0.000-0.744 [facility] Comment on above: Performed By: #### B ALCON CBCA, 1987-08, 61687-4 #### [facility] ([id number]) [address] [place] [address] 07285 #### 66319-5 #### [facility] ([id number]) [address] [facility], [address] [place] [address] ESR Photometric method (Bld) [Velocity]on 04-19-2023 ESR, ERYTHROCYTE SEDIMENTATION RATE 115 mm/h High 0-20 [facility] Comment on above: Performed By: #### Laura RONDON CBCA, 1987-08, 19146-1 #### [facility] ([id number]) [address] [place] [address] 01815 #### 68304-6 #### [facility] ([id number]) [address] [facility], [address] [place] [address] Natriuretic peptide.B prohor adrianne N-Terminal [Mass/Vol]on 04-19-2023 NT Pro BNP See Below Normal [facility] Comment on above: Result Comment: NOTE TEST RESULT FLAG UNIT REF.RANGE ----- PRO B Natr Peptide 587 H pg/mL <125 Test Performed By: [facility] [address] [place] [address] Kerfer Machine Operator: Tyler Valle III, M.D. CLIA #[id number] Performed By: #### B MP, CBCA, 1987-08, 06675-9 #### [facility] ([id number]) [address] [place] [address], [place] [address] #### 66276-8 #### [facility] ([id number]) [address] [place] [address], [address] [place] [address] Basic Metabolic Profon 02-27 Anion gap [Moles/Vol] 11 mmol/L Normal 9-17 [facility] Comment on above: Performed By: #### S ED, CRP, BMP, CDP #### [facility] [address] [place] [address] Pantomimist: Jameson Aaron MD BUN/CRE Ratio 16 Normal -20 [facility] Comment on above: Performed By: #### S ED, CRP, BMP, CDP #### [facility] [address] [place] [address] Pantomimist: Jameson Aaron MD Calcium [Mass/Vol] 9.4 mg/dL Normal 8.6-10.4 [facility] Comment on above: Performed By: #### S ED, CRP, BMP, CDP #### [facility] [address] [place] [address] Pantomimist: Jameson Aaron MD Chloride [Moles/Vol] 98 mmol/L Normal 98-107 [facility] Comment on above: Performed By: #### S ED, CRP, BMP, CDP #### [facility] [address] [place] [address] Pantomimist: Jameson Aaron MD CO2 [Moles/Vol] 18 mmol/L Low 20-31 [facility] Comment on above: Performed By: #### S ED CRP BMP, CDP #### [facility] [address] [place] [address] Pantomimist: Jameson Aaron MD Creatinine [Mass/Vol] 2.7 mg/dL High 0.7-1.2 [facility] Comment on above: Performed By: #### S LACIE MANRIQUE BMP, CDP #### [facility] [address] [place] [address] Pantomimist: Jameson Aaron MD GFR/1.73 sq M.predicted among non-blacks MDRD (S/P/Bld) [Vol rate/Area] 26 mL/min/{1.73_m2} Low >60 [facility] Comment on above: [...] By: #### S EDLACIE BMP, CDP #### [facility] [address] [place] [address] Pantomimist: Jameson Aaron MD Glucose [Mass/Vol] 268 mg/dL High 70-99 [facility] Comment on above: Performed By: #### S EDLACIE BMP, CDP #### [facility] [address] [place] [address] Pantomimist: Jameson Aaron MD Potassium [Moles/Vol] 5.2 mmol/L Normal 3.7-5.3 [facility] Comment on above: Performed By: #### S ED, CRP, BMP, CDP #### [facility] [address] [place], [place] [id number] Pantomimist: Jameson Aaron MD Sodium [Moles/Vol] 127 mmol/L Low 135-144 [facility] Comment on above: Performed By: #### S ED, CRP, BMP, CDP #### [facility] [address] [place], [place] [address] Pantomimist: Jameson Aaron MD Urea nitrogen [Mass/Vol] 44 mg/dL High 8-23 [facility] Comment on above: Performed By: #### S ED, CRP, BMP, CDP #### [facility] [address] [place] [address] [place] [address] Pantomimist: Jameson Aaron MD C-Reactive Proteinon 023 CRP [Mass/Vol] 131.1 mg/L High 0.0-5.0 [facility] Comment on above: Performed By: #### S ED, CRP, BMP, CDP #### [address] [place] [address] Pantomimist: Jameson Aaron MD CBC with Diffon 02-27-2023 Abs. Basophil 0.06 k/uL Normal 0.00-0.20 [facility] Comment on above: Performed By: #### S ED, CRP, BMP, CDP #### [facility] [address] [place], [place] [address] Pantomimist: Jameson Aaron MD Abs.Imm.Granulocyte 0.11 k/uL Normal 0.00-0.30 [facility] Comment on above: Performed By: #### S ED, CRP, BMP, CDP #### [facility] [address] [place], [place] [id number] Pantomimist: Jameson Aaron MD Abs.Neutrophil (Seg) 6.83 k/uL Normal 1.50-8.10 [facility] Comment on above: Performed By: #### S ED, CRP, BMP, CDP #### [facility] [address] [place] [address] [place] [address] Pantomimist: Jameson Aaron MD Basophils/100 WBC (Bld) 1 % Normal 0-2 [facility] Comment on above: Performed By: #### S ED, CRP, BMP, CDP #### [address] [place], [facility] Pantomimist: Jameson Aaron MD Eosinophils (Bld) [#/Vol] 0.22 10*3/uL Normal 0.00-0.44 [facility] Comment on above: Performed By: #### S ED, CRP, BMP, CDP #### [address] [place] [address] Pantomimist: Jameson Aaron MD Eosinophils/100 WBC (Bld) 2 % Normal 1-4 [facility] Comment on above: Performed By: #### S ED, CRP, BMP, CDP #### [address] [place], [facility]83 Pantomimist: Jameson Aaron MD Erythrocyte distribution width (RBC) [Ratio] 14.6 % High 11.8-14.4 [facility] Comment on above: Performed By: #### S ED, CRP, BMP, CDP #### [address] [place], [place] [address] Pantomimist: Jameson Aaron MD Hematocrit (Bld) [Volume fraction] 41.9 % Normal 40.7-50.3 [facility] Comment on above: Performed By: #### S ED, CRP, BMP, CDP #### [address] [place], [facility]83 Pantomimist: Jameson Aaron MD Hemoglobin (Bld) [Mass/Vol] 13.2 g/dL Normal 13.0-17.0 [facility] Comment on above: Performed By: #### S ED, CRP, BMP, CDP #### [facility] [address] [place], [place] [address] Pantomimist: Jameson Aaron MD Immature granulocytes/100 WBC (Bld) 1 % High 0 [facility] Comment on above: Performed By: #### S ED, CRP, BMP, CDP #### [facility] [address] [place], [place] [address] Pantomimist: Jameson Aaron MD Lymphocytes (Bld) [#/Vol] 1.83 10*3/uL Normal 1.10-3.70 [facility] Comment on above: Performed By: #### S ED, CRP, BMP, CDP #### [facility] [address] [place], [place] [address] Pantomimist: Jameson Aaron MD Lymphocytes/100 WBC (Bld) 18 % Low 24-43 [facility] Comment on above: Performed By: #### S ED, CRP, BMP, CDP #### [address] [place], [place] [address] Pantomimist: Jameson Aaron MD MCH (RBC) [Entitic mass] 28.2 pg Normal 25.2-33.5 [facility] Comment on above: Performed By: #### S ED, CRP, BMP, CDP #### [facility] [address] [place] [address] Dr[address] [place], [place] [address] Pantomimist: Jameson Aaron MD MCHC (RBC) [Mass/Vol] 31.5 g/dL Normal 28.4-34.8 [facility] Comment on above: Performed By: #### S ED, CRP, BMP, CDP #### [facility] [address] [place], [place] [id number] Pantomimist: Jameson Aaron MD MCV (RBC) [Entitic vol] 89.5 fL Normal 82.6-102.9 [facility] Comment on above: Performed By: #### S ED, CRP, BMP, CDP #### [facility] [address] [place], [place] [address] Pantomimist: Jameson Aaron MD Monocytes (Bld) [#/Vol] 1.42 10*3/uL High 0.10-1.20 [facility] Comment on above: Performed By: #### S ED, CRP, BMP, CDP #### [facility] [address] [place], [place] [address] Pantomimist: Jameson Aaron MD Monocytes/100 WBC (Bld) 14 % High 3-12 [facility] Comment on above: Performed By: #### S ED, CRP, BMP, CDP #### [facility] [address] [place], [place] [address] Pantomimist: Jameson Aaron MD Neutrophil (Seg) 64 % Normal 36-65 [facility] Comment on above: Performed By: #### S ED, CRP, BMP, CDP #### [facility] [address] [place], [place] [address] Pantomimist: Jameson Aaron MD NRBC Automated 0.0 per 100 WBC Normal 0.0 [facility] Comment on above: Performed By: #### S ED, CRP, BMP, CDP #### [facility] [address] [place], [place] [address] Pantomimist: Jameson Aaron MD Platelet mean volume (Bld) [Entitic vol] 9.4 fL Normal 8.1-13.5 [facility] Comment on above: Performed By: #### S ED, CRP, BMP, CDP #### [facility] [address] [place], [facility]83 Pantomimist: Jameson Aaron MD Platelets (Bld) [#/Vol] 266 10*3/uL Normal 138-453 [facility] Comment on above: Performed By: #### S ED, CRP, BMP, CDP #### [facility] [address] [place], [place] [id number] Pantomimist: Jameson Aaron MD RBC (Bld) [#/Vol] 4.68 10*6/uL Normal 4.21-5.77 [facility] Comment on above: Performed By: #### S ED, CRP, BMP, CDP #### [facility] [address] [place], [place] [phone] Pantomimist: Jameson Aaron MD WBC (Bld) [#/Vol] 10.5 10*3/uL Normal 3.5-11.3 [facility] Comment on above: Performed By: #### S ED, CRP, BMP, CDP #### [facility] [address] [place], [place] [id number] Pantomimist: Jameson Aaron MD Sedimentation Rateon 023 Sedimentation Rate 114 mm/Hr High 0-20 [facility] Comment on above: Performed By: #### S ED, CRP, BMP, CDP #### [facility] [address] [place], [place] [id number] Pantomimist: Jameson Aaron MD FUNGAL CULTUREon 09-21-2022 Fungus (Mycology) Culture Final report Abnormal [facility] Comment on above: Performed By: #### C XFUN ####[facility] [id number] [place] [address]Dr. Eddie Lerner Fungus Stain Final report Normal [facility] Comment on above: Performed By: #### C XFUN ####[facility] [address] [place] [id number]. Eddie Lerner Result 1 Comment Normal [facility] Comment on above: Result Comment: ANNEMARIE/ Calcofluor preparation: no fungus observed. Performed By: #### C XFUN ####[facility] [id number] [place] [id number]. Eddie Lerner Result 1 Rosy albicans Abnormal [facility] Comment on above: Performed By: #### C XFUN ####[facility] [address] [place] [address]Dr. Eddie Lerner CULTURE OTHERon 08-23-2022 CULTURE OTHER Isolate 1 Enterococcus faecalis Light growth of ORGANISM 1 Enterococcus faecalis ANTIBIOTIC M.I.C RX STATUS Beta-Lactamase Neg NEG F Benzylpenicillin 0.5 S F Ampicillin <=2 S F Gentamicin High Level (synergy) SYN-R R F Streptomycin High Level (synergy) SYN-S S F Quinupristin/Dalfopristin 4 R F Linezolid 1 S F Vancomycin 1 S F Normal [facility] Comment on above: Performed By: #### O THCX ####[facility] [address] [place] [address]DrVaishali Lerner ACID FAST SMEAR AND CXon Acid Fast Smear Negative Normal [facility] Comment on above: Performed By: #### A FB ####[facility] [address] [place], [place] [address]DrVaishali Lerner [employer] Specimen Processing Tissue Grinding [facility] Comment on above: Performed By: #### A FB ####[facility] [address] [place], [place] [address]DrVaishali Lerner BNPon 08-20-2022 Natriuretic peptide B (Bld) [Mass/Vol] 648.0 pg/mL Normal <=900.0 [facility] Comment on above: Performed By: #### A 1C #### [facility] [address] [place] [address] Dr. Eddie Lerner CULTURE ANAEROBICon 08-21-19 23 CULTURE ANAEROBIC Culture Observations : NO GROWTH OF ANAEROBES AT 72 HOURS. Normal [facility] Comment on above: Performed By: #### A NACX ####[facility] [address] [place], [place] [address]DrVaishali Lerner GLYCOHEMOGLOBIN A1Con 2022 ADA RECOMMENDATION SEE BELOW [facility] Comment on above: Result Comment: ADA RECOMMENDED LIMIT 4.0 - 6.0 ADA THERAPEUTIC TARGET < 7.0 ACTION SUGGESTED > 7.0 Performed By: #### R ENAL, LIPID, LIVER, TSH #### [facility] [address] [place] [address] [address] Eddie Lerner Glucose [Mass/Vol] 235 mg/dL Normal [facility] Comment on above: Performed By: #### R ENAL, LIPID, LIVER, TSH #### [facility] [address] [place] [address] [address] Eddie Lerner HbA1c (Bld) [Mass fraction] 9.8 % Critically high 4.5-6.2 [facility] Comment on above: Performed By: #### R ENAL, LIPID, LIVER, TSH #### [facility] [address] [place] [address] [address] Eddie Lerner GRAM STAINon 08-20-2022 COMMENTS NO ORGANISMS OBSERVED Normal [facility] Comment on above: Performed By: #### G STAIN ####[facility] [address] [place] [address]Dr. Eddie Lerner DIPHTHEROIDS Normal [facility] Comment on above: Performed By: #### G STAIN ####[facility] [id number] [place] [address]Dr. Eddie Lerner EPITHELIALS Normal [facility] Comment on above: Performed By: #### G STAIN ####[facility] [address] [place] [address]Dr. Eddie Lerner FUNGAL ELEMENTS Normal [facility] Comment on above: Performed By: #### G STAIN ####[facility] [id number] [place] [address]Dr. Eddie Lerner GRAM NEG BACILLI Normal [facility] Comment on above: Performed By: #### G STAIN ####[facility] [id number] [place] [address]Dr. Edide Lerner GRAM NEG DIPPLOCOCCI Normal [facility] Comment on above: Performed By: #### G STAIN ####[facility] [address] [place] [address]Dr. Eddie Lerner GRAM POS BACILLI Normal [facility] Comment on above: Performed By: #### G STAIN ####[facility] [address] [place] [address]Dr. Eddie Lerner GRAM POSITIVE COCCI Normal [facility] Comment on above: Performed By: #### G STAIN ####[facility] [address] [place] [id number]. Eddie Lerner GRAM STAIN SOURCE Lt Foot Bone Normal [facility] Comment on above: Performed By: #### G STAIN ####[facility] [address] [place], [place] [address]Ge. Eddie Lerner GS_DIPTH Normal [facility] Comment on above: Performed By: #### G STAIN ####[facility] [address] [place] [id number]. Eddie Lerner WBC RARE Normal [facility] Comment on above: Performed By: #### G STAIN ####[facility] [address] [place] [address]Dr. Eddie Lerner LIPID PROFILEon 08-20-2022 CHOL-HDL RATIO NORM SEE BELOW Normal [facility] Comment on above: Result Comment: 3.3 - 4.4 LOW RISK 4.4 - 7.1 AVERAGE RISK 7.1 - 11.0 MODERATE RISK >11.0 HIGH RISK Performed By: #### A 1C #### [facility] Laboratory [address] [address] [address] Eddie Lerner Cholesterol [Mass/Vol] 137 mg/dL Normal <=200 [facility] Comment on above: Performed By: #### A 1C #### [facility] Laboratory [address] [address] [address] Eddie Lerner Cholesterol in HDL [Mass/Vol] 54 mg/dL Normal 40-60 [facility] Comment on above: Performed By: #### A 1C #### [facility] Laboratory [address] [address] [address] Eddie Lerner Cholesterol in LDL [Mass/Vol] 63.2 mg/dL Normal [facility] Comment on above: Performed By: #### A 1C #### [facility] Laboratory [address] [address] [address] Eddie Lerner Cholesterol.total/Ch olesterol in HDL [Mass ratio] 2.5 {ratio} Normal [facility] Comment on above: Performed By: #### A 1C #### [facility] Laboratory [address] [address] [address] Eddie Lerner HDL NORMAL > or = 60 mg/dl - LO W CARDIOVASCULAR RISK <40 mg/dl - HIGH CARDIOVASCULAR RISK Normal [facility] Comment on above: Performed By: #### A 1C #### [facility] Laboratory [address] [address] [address] Eddie Lerner LDL CALC NORMAL SEE BELOW Normal [facility] Comment on above: Result Comment: <100 mg/dl OPTIMAL 100 - 129 mg/dl NEAR OR ABOVE OPTIMAL 130 - 159 mg/dl BORDERLINE HIGH 160 - 189 mg/dl HIGH >190 mg/dl VERY HIGH Performed By: #### A 1C #### [facility] Laboratory [address] [place] [address] Dr. Eddie Lerner Triglyceride [Mass/Vol] 99 mg/dL Normal <=150 [facility] Comment on above: Performed By: #### A 1C #### [facility] Laboratory [address] [address] [address] Eddie Lerner VLDL CALC 19.8 mg/dL Normal [facility] Comment on above: Performed By: #### A 1C #### [facility] Laboratory [address] [address] [address] Eddie Lerner LIVER PROFILEon 08-20-2022 Albumin [Mass/Vol] 2.8 g/dL Critically low 3.4-5.0 Th e [facility] Comment on above: Performed By: #### A 1C #### [facility] Laboratory [address] [place] [address] Dr. Eddie Lerner Albumin/Globulin [Mass ratio] 0.6 {ratio} Normal [facility] Comment on above: Performed By: #### A 1C #### [facility] Laboratory [address] [address] [address] Eddie Lerner ALP [Catalytic activity/Vol] 87 U/L Normal 46-116 [facility] Comment on above: Performed By: #### A 1C #### [facility] Laboratory [address] [place] [address] Dr. Eddie Lerner ALT [Catalytic activity/Vol] 49 U/L Normal 16-63 [facility] Comment on above: Performed By: #### A 1C #### [facility] Laboratory [address] [address] [address] Eddie Lerner AST [Catalytic activity/Vol] 36 U/L Normal 15-37 [facility] Comment on above: Performed By: #### A 1C #### [facility] Laboratory [address] [address] [address] Eddie Lerner BILI, CONJUGATED 0.1 mg/dL Normal 0.0-0.2 [facility] Comment on above: Performed By: #### A 1C #### [facility] Laboratory [address] [address] [address] Eddie Lerner Bilirubin [Mass/Vol] 0.4 mg/dL Normal 0.2-1.0 [facility] Comment on above: Performed By: #### A 1C #### [facility] Laboratory [address] [address] [address] Eddie Lerner Globulin (S) [Mass/Vol] 4.4 g/dL Normal [facility] Comment on above: Performed By: #### A 1C #### [facility] Laboratory [address] [address] [address] Eddie Lerner Protein [Mass/Vol] 7.2 g/dL Normal 6.4-8.2 [facility] Comment on above: Performed By: #### A 1C #### [facility] Laboratory [address] [address] [address] Eddie Lerner POINT OF CARE GLUCOSEon 07-29 Glucose [Mass/Vol] 107 mg/dL Critically high 74-106 [facility] Comment on above: Performed By: #### P OCGLUC #### [facility] Laboratory [address] [address] [address] Eddie Lerner Glucose [Mass/Vol] 108 mg/dL Critically high 74-106 [facility] Comment on above: Performed By: #### P OCGLUC ####[facility] [address] [place] [address]Dr. Eddie Lerner TSHon 08-20-2022 TSH 2.247 uIU/mL Normal 0.358-3.740 [facility] Comment on above: Performed By: #### A 1C #### [facility] Laboratory [address] [address] [address] Eddie Lerner CBC AUTO DIFFon 08-15-2022 BASO # 0.0 103/ul Normal 0.0-0.1 [facility] Comment on above: Performed By: #### C BC ####[facility] [address] [place] [address]Dr. Eddie Lerner Basophils/100 WBC (Bld) 0.4 % Normal 0.2-2.0 [facility] Comment on above: Performed By: #### C BC ####[facility] [address] [place] [address]Dr. Eddie Lerner EO # 0.2 103/ul Normal 0.0-0.7 [facility] Comment on above: Performed By: #### C BC ####[facility] [address] [place] [address]Dr. Eddie Lerner Eosinophils/100 WBC (Bld) 2.0 % Normal 0.9-7.0 [facility] Comment on above: Performed By: #### C BC ####[facility] [address]bulf[address] [place], [place] [address]Dr. Eddie Lerner Erythrocyte distribution width (RBC) [Ratio] 14.5 % Normal 11.0-15.0 [facility] Comment on above: Performed By: #### C BC ####[facility] [address] [place], [place] [address]Dr. Eddie Lerner Hematocrit (Bld) [Volume fraction] 40.5 % Critically low 42.0-54.0 [facility] Comment on above: Performed By: #### C BC ####[facility] Husycosiso[address] [place], [place] [address]Dr. Eddie Lerner Hemoglobin (Bld) [Mass/Vol] 13.1 g/dL Critically low 14.0-18.0 [facility] Comment on above: Performed By: #### C BC ####[facility] [address] [place], [place] [address]Dr. Eddie Lerner IG # 0.12 10e3/ul Critically high 0.00-0.03 [facility] Comment on above: Performed By: #### C BC ####[facility] [address] [place] [address]DrVaishali Eddie Yann IG % 1.2 % Critically high 0.0-0.5 [facility] Comment on above: Performed By: #### C BC ####[facility] Gtwcv[address] [place], [place] [address]DrVaishali Lamaquincy Yann LYMPH # 1.4 103/ul Normal 1.2-3.8 [facility] Comment on above: Performed By: #### C BC ####[facility] [address] [place], [place] [address]DrVaishali Lerner Lymphocytes/100 WBC (Bld) 13.6 % Critically low 20.5-60.0 [facility] Comment on above: Performed By: #### C BC ####[facility] [address] [place], [place] [address]DrVaishali Dainaquincy Lerner MANUAL DIFF REQ NO Normal [facility] Comment on above: Performed By: #### C BC ####[facility] E[address] [place], [place] [address]DrVaishali Eddie Yann MCH (RBC) [Entitic mass] 29.8 pg Normal 25.9-34.0 [facility] Comment on above: Performed By: #### C BC ####[facility] [address] [place], [place] [address]DrVaishali Lerner MCHC (RBC) [Mass/Vol] 32.3 g/dL Normal 29.9-35.2 [facility] Comment on above: Performed By: #### C BC ####[facility] [address] [place], [place] [address]DrVaishali Lerner MCV (RBC) [Entitic vol] 92.0 fL Normal 80.0-94.0 [facility] Comment on above: Performed By: #### C BC ####[facility] [address] [place], [place] [address]DrVaishali Lerner MONO # 0.5 103/ul Normal 0.3-0.8 [facility] Comment on above: Performed By: #### C BC ####[facility] [address] [place] [address]Dr. Eddie Lerner Monocytes/100 WBC (Bld) 4.8 % Normal 1.7-12.0 [facility] Comment on above: Performed By: #### C BC ####[facility] [address] [place] [address]Dr. Eddie Lerner NEUT # 8.1 103/ul Critically high 1.4-6.5 [facility] Comment on above: Performed By: #### C BC ####[facility] [address] [place] [address]Dr. Eddie Lerner Neutrophils/100 WBC (Bld) 78.0 % Critically high 43.0-75.0 [facility] Comment on above: Performed By: #### C BC ####[facility] Krormookmv[address] [place], [place] [address]Dr. Eddie Lerner Platelet mean volume (Bld) [Entitic vol] 8.6 fL Critically low 9.5-13.5 [facility] Comment on above: Performed By: #### C BC ####[facility] [address] [place], [place] [address]Dr. Eddie Lerner PLT 240 103/ul Normal 150-450 [facility] Comment on above: Performed By: #### C BC ####[facility] [address] [place], [place] [address]Dr. Eddie Lerner RBC 4.40 106/ul Critically low 4.70-6.10 [facility] Comment on above: Performed By: #### C BC ####[facility] [address] [place], [place] [address]Dr. Eddie Lerner WBC 10.3 103/ul Normal 4.0-11.0 [facility] Comment on above: Performed By: #### C BC ####[facility] [address] [place], [place] [address]Dr. Eddie Lerner CRPon 04-19-2023 CRP [Mass/Vol] mg/L Normal <=1.0 [facility] Comment on above: Performed By: #### A 1C #### [facility] Laboratory [address] [place] [address] Dr. Eddie Lerner PROF CHEM 8 (BAS METB)on Anion gap [Moles/Vol] 14.4 mmol/L Normal [facility] Comment on above: Performed By: #### A 1C #### [facility] Laboratory [address] [place] [address] Dr. Eddie Lerner Calcium [Mass/Vol] 9.2 mg/dL Normal 8.5-10.1 [facility] Comment on above: Performed By: #### A 1C #### [facility] Laboratory [address] [place] [address] Dr. Eddie Lerner Chloride [Moles/Vol] 101 mmol/L Normal 98-107 [facility] Comment on above: Performed By: #### A 1C #### [facility] Laboratory [address] [place] [address] Dr. Eddie Lerner CO2 [Moles/Vol] 25.2 mmol/L Normal 21.0-32.0 [facility] Comment on above: Performed By: #### A 1C #### [facility] Laboratory [address] [place] [address] Dr. Eddie Lerner Creatinine [Mass/Vol] 3.07 mg/dL Critically high 0.70-1.30 [facility] Comment on above: Performed By: #### A 1C #### [facility] Laboratory [address] [place] [address] Dr. Eddie Lerner EGFR-AF ANGUILLAN 25 mL/min/1.73m2 Critically low >=60 [facility] Comment on above: Performed By: #### A 1C #### [facility] Laboratory [address] [place] [address] Dr. Eddie Lerner EGFR-NON AF ANGUILLAN 21 mL/min/1.73m2 Critically low >=60 [facility] Comment on above: Performed By: #### A 1C #### [facility] Laboratory [address] [place] [address] Dr. Eddie Lerner Glucose [Mass/Vol] 415 mg/dL Critically high 74-106 [facility] Comment on above: Performed By: #### A 1C #### [facility] Laboratory [address] [address] [address] Eddie Lerner Potassium [Moles/Vol] 5.6 mmol/L Critically high 3.5-5.1 [facility] Comment on above: Performed By: #### A 1C #### [facility] Laboratory [address] [address] [address] Eddie Lerner Sodium [Moles/Vol] 135 mmol/L Critically low 136-145 [facility] Comment on above: Performed By: #### A 1C #### [facility] Laboratory [address] [address] [address] Eddie Lerner Urea nitrogen [Mass/Vol] 34.0 mg/dL Critically high 7.0-18.0 [facility] Comment on above: Performed By: #### A 1C #### [facility] Laboratory [address] [address] [address] Eddie Lerner Urea nitrogen/Creatinine [Mass ratio] 11.1 mg/mg Normal [facility] Comment on above: Performed By: #### A 1C #### [facility] Laboratory [address] [place] [address] Dr. Eddie Lerner SED [facility] SED RATE 59 mm/hr Critically high <=20 [facility] Comment on above: Performed By: #### S EDR ####[facility] [address] [place] [address]Dr. Eddie Lerner BNPon 06-06-2022 Natriuretic peptide B (Bld) [Mass/Vol] 1342.0 pg/mL Critically high <=900.0 [facility] Comment on above: Performed By: #### B INSPECTOR POISING ####[facility] [address] [place] [address]Dr. Eddie Lerner CBC AUTO DIFFon 06-06-2022 BASO # 0.1 103/ul Normal 0.0-0.1 [facility] Comment on above: Performed By: #### A 1C #### [facility] Laboratory [address] [place] [address] Dr. Eddie Lerner Basophils/100 WBC (Bld) 0.6 % Normal 0.2-2.0 [facility] Comment on above: Performed By: #### A 1C #### [facility] Laboratory [address] [place] [address] Dr. Eddie Lerner EO # 0.2 103/ul Normal 0.0-0.7 [facility] Comment on above: Performed By: #### A 1C #### [facility] Laboratory [address] [place] [address] Dr. Eddie Lerner Eosinophils/100 WBC (Bld) 1.8 % Normal 0.9-7.0 [facility] Comment on above: Performed By: #### A 1C #### [facility] Laboratory [address] [place] [address] Dr. Eddie Lerner Erythrocyte distribution width (RBC) [Ratio] 15.2 % Critically high 11.0-15.0 [facility] Comment on above: Performed By: #### A 1C #### [facility] Laboratory [address] [place] [address] Dr. Eddie Lerner Hematocrit (Bld) [Volume fraction] 39.0 % Critically low 42.0-54.0 [facility] Comment on above: Performed By: #### A 1C #### [facility] Laboratory [address] [place] [address] Dr. Eddie Lerner Hemoglobin (Bld) [Mass/Vol] 12.4 g/dL Critically low 14.0-18.0 [facility] Comment on above: Performed By: #### A 1C #### [facility] Laboratory [address] [place] [address] Dr. Eddie Lerner IG # 0.21 10e3/ul Critically high 0.00-0.03 [facility] Comment on above: Performed By: #### A 1C #### [facility] Laboratory [address] [place] [address] Dr. Eddie Lerner IG % 1.6 % Critically high 0.0-0.5 [facility] Comment on above: Performed By: #### A 1C #### [facility] Laboratory [address] [place] [address] Dr. Eddie Lerner LYMPH # 1.9 103/ul Normal 1.2-3.8 [facility] Comment on above: Performed By: #### A 1C #### [facility] Laboratory [address] [place] [address] Dr. Eddie Lerner Lymphocytes/100 WBC (Bld) 13.8 % Critically low 20.5-60.0 [facility] Comment on above: Performed By: #### A 1C #### [facility] Laboratory [address] [place] [address] Dr. Eddie Lerner MANUAL DIFF REQ NO Normal [facility] Comment on above: Performed By: #### A 1C #### [facility] Laboratory [address] [place] [address] Dr. Eddie Lerner MCH (RBC) [Entitic mass] 27.8 pg Normal 25.9-34.0 [facility] Comment on above: Performed By: #### A 1C #### [facility] Laboratory [address] [place] [address] Dr. Eddie Lerner MCHC (RBC) [Mass/Vol] 31.8 g/dL Normal 29.9-35.2 [facility] Comment on above: Performed By: #### A 1C #### [facility] Laboratory [address] [place] [address] Dr. Eddie Lerner MCV (RBC) [Entitic vol] 87.4 fL Normal 80.0-94.0 [facility] Comment on above: Performed By: #### A 1C #### [facility] Laboratory [address] [place] [address] Dr. Eddie Lernre MONO # 0.8 103/ul Normal 0.3-0.8 [facility] Comment on above: Performed By: #### A 1C #### [facility] Laboratory [address] [place] [address] Dr. Eddie Lerner Monocytes/100 WBC (Bld) 5.9 % Normal 1.7-12.0 [facility] Comment on above: Performed By: #### A 1C #### [facility] Laboratory [address] [address] [address] Eddie Lerner NEUT # 10.3 103/ul Critically high 1.4-6.5 [facility] Comment on above: Performed By: #### A 1C #### [facility] Laboratory [address] [place] [address] Dr. Eddie Lerner Neutrophils/100 WBC (Bld) 76.3 % Critically high 43.0-75.0 [facility] Comment on above: Performed By: #### A 1C #### [facility] Laboratory [address] [place] [address] Dr. Eddie Lerner Platelet mean volume (Bld) [Entitic vol] 10.2 fL Normal 9.5-13.5 [facility] Comment on above: Performed By: #### A 1C #### [facility] Laboratory [address] [place] [address] Dr. Eddie Lerner PLT 288 103/ul Normal 150-450 [facility] Comment on above: Performed By: #### A 1C #### [facility] Laboratory [address] [place] [address] Dr. Eddie Lerner RBC 4.46 106/ul Critically low 4.70-6.10 [facility] Comment on above: Performed By: #### A 1C #### [facility] Laboratory [address] [place] [address] Dr. Eddie Lerner WBC 13.5 103/ul Critically high 4.0-11.0 [facility] Comment on above: Performed By: #### A 1C #### [facility] Laboratory [address] [place] [address] Dr. Eddie Lerner GLYCOHEMOGLOBIN A1Con 2022 ADA RECOMMENDATION SEE BELOW Normal [facility] Comment on above: Result Comment: ADA RECOMMENDED LIMIT 4.0 - 6.0 ADA THERAPEUTIC TARGET < 7.0 ACTION SUGGESTED > 7.0 Performed By: #### A 1C #### [facility] Laboratory [address] [place] [address] Dr. Eddie Lerner Glucose [Mass/Vol] 283 mg/dL Normal [facility] Comment on above: Performed By: #### A 1C #### [facility] Laboratory [address] [place] [address] Dr. Eddie Lerner HbA1c (Bld) [Mass fraction] 11.5 % Critically high 4.5-6.2 [facility] Comment on above: Performed By: #### A 1C #### [facility] Laboratory [address] [place] [address] Dr. Eddie Lerner LIPID PROFILEon 06-06-2022 CHOL-HDL RATIO NORM SEE BELOW Normal [facility] Comment on above: Result Comment: 3.3 - 4.4 LOW RISK 4.4 - 7.1 AVERAGE RISK 7.1 - 11.0 MODERATE RISK >11.0 HIGH RISK Performed By: #### R ENAL, LIPID, LIVER, TSH #### [facility] Laboratory [address] [place] [address] Dr. Eddie Lerner Cholesterol [Mass/Vol] 152 mg/dL Normal <=200 [facility] Comment on above: Performed By: #### R ENAL, LIPID, LIVER, TSH #### [facility] Laboratory [address] [place] [address] Dr. Eddie Lerner Cholesterol in HDL [Mass/Vol] 51 mg/dL Normal 40-60 [facility] Comment on above: Performed By: #### R ENAL, LIPID, LIVER, TSH #### [facility] Laboratory [address] [place] [address] Dr. Eddie Lerner Cholesterol in LDL [Mass/Vol] 61.0 mg/dL Normal [facility] Comment on above: Performed By: #### R ENAL, LIPID, LIVER, TSH #### [facility] Laboratory [address] [place] [address] Dr. Eddie Lerner Cholesterol.total/Ch olesterol in HDL [Mass ratio] 3.0 {ratio} Normal [facility] Comment on above: Performed By: #### R ENAL, LIPID, LIVER, TSH #### [facility] Laboratory [address] [place] [address] Dr. Eddie Lerner HDL NORMAL > or = 60 mg/dl - LO W CARDIOVASCULAR RISK <40 mg/dl - HIGH CARDIOVASCULAR RISK Normal [facility] Comment on above: Performed By: #### R ENAL, LIPID, LIVER, TSH #### [facility] [facility] [address] [address] [address] Eddie Lerner LDL CALC NORMAL SEE BELOW Normal [facility] Comment on above: Result Comment: <100 mg/dl OPTIMAL 100 - 129 mg/dl NEAR OR ABOVE OPTIMAL 130 - 159 mg/dl BORDERLINE HIGH 160 - 189 mg/dl HIGH >190 mg/dl VERY HIGH Performed By: #### R ENAL, LIPID, LIVER, TSH #### [facility] [address] [address] [address] Eddie Lerner Triglyceride [Mass/Vol] 200 mg/dL Critically high <=150 [facility] Comment on above: Performed By: #### R ENAL, LIPID, LIVER, TSH #### [facility] [address] [address] [address] Eddie Lerner VLDL CALC 40.0 mg/dL Normal [facility] Comment on above: Performed By: #### R ENAL, LIPID, LIVER, TSH #### [facility] [address] [address] [address] Eddie Lerner LIVER PROFILEon 06-06-2022 Albumin [Mass/Vol] 2.6 g/dL Critically low 3.4-5.0 [facility] Comment on above: Performed By: #### R ENAL, LIPID, LIVER, TSH #### [facility] [address] [address] [address] Eddie Lerner Albumin/Globulin [Mass ratio] 0.6 {ratio} Normal [facility] Comment on above: Performed By: #### R ENAL, LIPID, LIVER, TSH #### [facility] [address] [address] [address] Eddie Lerner ALP [Catalytic activity/Vol] 120 U/L Critically high 46-116 [facility] Comment on above: Performed By: #### R ENAL, LIPID, LIVER, TSH #### [facility] [address] [place] [address] Dr. Eddie Lerner ALT [Catalytic activity/Vol] 22 U/L Normal 16-63 [facility] Comment on above: Performed By: #### R ENAL, LIPID, LIVER, TSH #### [facility] [address] [address] [address] Eddie Lerner AST [Catalytic activity/Vol] 15 U/L Normal 15-37 [facility] Comment on above: Performed By: #### R ENAL, LIPID, LIVER, TSH #### [facility] [address] [address] [address] Eddie Lerner BILI, CONJUGATED 0.1 mg/dL Normal 0.0-0.2 [facility] Comment on above: Performed By: #### R ENAL, LIPID, LIVER, TSH #### [facility] [address] [address] [address] Eddie Lerner Bilirubin [Mass/Vol] 0.3 mg/dL Normal 0.2-1.0 [facility] Comment on above: Performed By: #### R ENAL, LIPID, LIVER, TSH #### [facility] [address] [place] [address] Dr. Eddie Lerner Globulin (S) [Mass/Vol] 4.7 g/dL Normal [facility] Comment on above: Performed By: #### R ENAL, LIPID, LIVER, TSH #### [facility] [address] [place] [address] Dr. Eddie Lerner Protein [Mass/Vol] 7.3 g/dL Normal 6.4-8.2 [facility] Comment on above: Performed By: #### R ENAL, LIPID, LIVER, TSH #### [facility] [address] [place] [address] Dr. Eddie Lerner RENAL FUNCTION PANELon 06-06 Calcium [Mass/Vol] 9.0 mg/dL Normal 8.5-10.1 [facility] Comment on above: Performed By: #### R ENAL, LIPID, LIVER, TSH #### [facility] [address] [place] [address] Dr. Eddie Lerner Chloride [Moles/Vol] 96 mmol/L Critically low 98-107 [facility] Comment on above: Performed By: #### R ENAL, LIPID, LIVER, TSH #### [facility] [address] [place] [address] Dr. Eddie Lerner CO2 [Moles/Vol] 21.8 mmol/L Normal 21.0-32.0 [facility] Comment on above: Performed By: #### R ENAL, LIPID, LIVER, TSH #### [facility] [address] [address] [address] Eddie Lerner Creatinine [Mass/Vol] 2.38 mg/dL Critically high 0.70-1.30 [facility] Comment on above: Performed By: #### R ENAL, LIPID, LIVER, TSH #### [facility] [address] [address] [address] Eddie Lerner EGFR-AF ANGUILLAN 34 mL/min/1.73m2 Critically low >=60 [facility] Comment on above: Performed By: #### R ENAL, LIPID, LIVER, TSH #### [facility] [address] [place] [address] Dr. Eddie Lerner EGFR-NON AF ANGUILLAN 28 mL/min/1.73m2 Critically low >=60 [facility] Comment on above: Performed By: #### R ENAL, LIPID, LIVER, TSH #### [facility] [address] [address] [address] Eddie Lerner Glucose [Mass/Vol] 523 mg/dL Critically high 74-106 [facility] Comment on above: Performed By: #### R ENAL, LIPID, LIVER, TSH #### [facility] [address] [address] [address] Eddie Lerner Phosphate [Mass/Vol] 4.1 mg/dL Normal 2.6-4.7 [facility] Comment on above: Performed By: #### R ENAL, LIPID, LIVER, TSH #### [facility] [address] [address] [address] Eddie Lerner Potassium [Moles/Vol] 4.6 mmol/L Normal 3.5-5.1 [facility] Comment on above: Performed By: #### R ENAL, LIPID, LIVER, TSH #### [facility] [address] [address] [address] Eddie Lerner Sodium [Moles/Vol] 128 mmol/L Critically low 136-145 Th e [facility] Comment on above: Performed By: #### R ENAL, LIPID, LIVER, TSH #### [facility] [address] [place] [address] Dr. Eddie Lerner Urea nitrogen [Mass/Vol] 28.0 mg/dL Critically high 7.0-18.0 [facility] Comment on above: Performed By: #### R ENAL, LIPID, LIVER, TSH #### [facility] [address] [place] [address] Dr. Eddie Lerner TSHon 06-06-2022 TSH 1.308 uIU/mL Normal 0.358-3.740 [facility] Comment on above: Performed By: #### R ENAL, LIPID, LIVER, TSH #### [facility] [address] [place] [address] Dr. Eddie Lerner UA RANDOMon 06-06-2022 Bilirubin Ql (U) Negative Normal NEGATIVE [facility] Comment on above: Performed By: #### U A #### [facility] [address] [place] [address] Dr. Eddie Lerner Clarity (U) CLEAR Normal CLEAR [facility] Comment on above: Performed By: #### U A #### [facility] [address] [place] [address] Dr. Eddie Lerner Color (U) LT. YELLOW Normal YELLOW [facility] Comment on above: Performed By: #### U A #### [facility] [address] [place] [address] Dr. Eddie Lerner Glucose Ql (U) >1000 Abnormal NEGATIVE [facility] Comment on above: Performed By: #### U A #### [facility] [address] [place] [address] Dr. Eddie Lerner Hemoglobin Ql (U) TRACE-INTACT Abnormal NEGATIVE [facility] Comment on above: Performed By: #### U A #### [facility] [address] [place] [address] Dr. Eddie Lerner Ketones Ql (U) Negative Normal NEGATIVE [facility] Comment on above: Performed By: #### U A #### [facility] [address] [place] [address] Dr. Eddie Lerner LEUKOCYTES Negative Normal NEGATIVE [facility] Comment on above: Performed By: #### U A #### [facility] [address] [place] [address] Dr. Eddie Lerner Nitrite Ql (U) Negative Normal NEGATIVE [facility] Comment on above: Performed By: #### U A #### [facility] [address] [place] [address] Dr. Eddie Lerner pH (U) 6.5 [pH] Normal 5-9 [facility] Comment on above: Performed By: #### U A #### [facility] [address] [place] [address] Dr. Eddie Lerner SPEC GRAVITY 1.010 Normal 1.005-<=1.02 5 [facility] Comment on above: Performed By: #### U A #### [facility] [address] [place] [address] Dr. Eddie Lerner UA PROTEIN 100 mg/dl Abnormal NEGATIVE/ TRACE [facility] Comment on above: Performed By: #### U A #### [facility] [address] [place] [address] Dr. Eddie Lerner Urobilinogen Qn (U) 0.2 {Chaya'U}/dL Normal 0.2 - 1. 0 [facility] Comment on above: Performed By: #### U A #### [facility] [address] [place] [address] Dr. Eddie Lerner VITAMIN D 25 OHon 06-06-2022 VIT D 25-OH 13.9 ng/mL Normal [facility] Comment on above: Performed By: #### V ITAD ####[facility] [id number] [address]. Eddie Lerner VIT D RANGES SEE BELOW Normal [facility] Comment on above: Result Comment: <20 ng/mL Vit D deficient 20 - <30 ng/mL Vit D insufficient 30 - 100 ng/mL Vit D sufficient >100 ng/mL Potential Toxicity Performed By: #### V ITAD ####[facility] [id number] [id number]. Eddie Lerner ACID FAST SMEAR AND CXon Acid Fast Culture Negative Normal [facility] Comment on above: Result Comment: No a wendy fast bacilli isolated after 6 weeks. Performed By: #### A FB ####[facility] [address] [id number]. Eddie Lerner Acid Fast Smear Negative Normal [facility] Comment on above: Performed By: #### A FB ####[facility] [id number] [address]Dr. Eddie Lerner [employer] Specimen Processing Tissue Grinding [facility] Comment on above: Performed By: #### A FB ####[facility] [id number] [address]. Eddie Lerner FUNGAL CULTUREon 01-19-2022 Fungus (Mycology) Culture Final report Normal [facility] Comment on above: Performed By: #### R ENAL, LIPID, LIVER, TSH #### [facility] [address] [address] [address] Eddie Lerner Fungus Stain Final report [facility] Comment on above: Performed By: #### R ENAL, LIPID, LIVER, TSH #### [facility] [address] [address] [address] Eddie Lerner Result 1 Comment Normal [facility] Comment on above: Result Comment: ANNEMARIE/ Calcofluor preparation: no fungus observed. Performed By: #### R ENAL, LIPID, LIVER, TSH #### [facility] [address] [address] [address] Eddie Lerner Result Comment: No y east or mold isolated after 4 weeks. POINT OF CARE GLUCOSEon 12-28 Glucose [Mass/Vol] 177 mg/dL Critically high 74-106 [facility] Comment on above: Performed By: #### A 1C #### [facility] [address] [address] [address] Eddie Lerner Glucose [Mass/Vol] 200 mg/dL Critically high 74-106 [facility] Comment on above: Performed By: #### P OCGLUC ####[facility] [address] [place], [place] [address]CjDr. Eddie Lerner Covid-19 PCR ([facility]on 12-28 SARS-CoV-2 (COVID-19) RNA SUDHA+probe Ql (Unsp spec) Not detected Normal NOT DETECTED The [facility] Comment on above: Result Comment: This test is not yet approved or cleared by the [place] FDA. When there are no FDA-approved or cleared tests available, and other criteria are met, FDA can make tests available under an emergency access mechanism called an Emergency Use Authorization (EUA). The EUA for this test is supported by the [place] of Health and Human Service's (HHS's) declaration [...] SARS-CoV-2. Performed By: #### A 1C #### [facility] [address] [place] [address] Dr. Eddie Lerner PROF CHEM 8 (BAS METB)on Anion gap [Moles/Vol] 15.0 mmol/L Normal [facility] Comment on above: Performed By: #### R ENAL, LIPID, LIVER, TSH #### [facility] [address] [address] [address] Eddie Lerner Calcium [Mass/Vol] 9.3 mg/dL Normal 8.5-10.1 [facility] Comment on above: Performed By: #### R ENAL, LIPID, LIVER, TSH #### [facility] [address] [address] [address] Eddie Lerner Chloride [Moles/Vol] 105 mmol/L Normal 98-107 [facility] Comment on above: Performed By: #### R ENAL, LIPID, LIVER, TSH #### [facility] [address] [address] [address] Eddie Lerner CO2 [Moles/Vol] 22.1 mmol/L Normal 21.0-32.0 [facility] Comment on above: Performed By: #### R ENAL, LIPID, LIVER, TSH #### [facility] [address] [address] [address] Eddie Lerner Creatinine [Mass/Vol] 2.29 mg/dL Critically high 0.70-1.30 [facility] Comment on above: Performed By: #### R ENAL, LIPID, LIVER, TSH #### [facility] [address] [place] [address] Dr. Eddie Lerner EGFR-AF ANGUILLAN 35 mL/min/1.73m2 Critically low >=60 [facility] Comment on above: Performed By: #### R ENAL, LIPID, LIVER, TSH #### [facility] [address] [place] [address] Dr. Eddie Lerner EGFR-NON AF ANGUILLAN 29 mL/min/1.73m2 Critically low >=60 [facility] Comment on above: Performed By: #### R ENAL, LIPID, LIVER, TSH #### [facility] [address] [place] [address] Dr. Eddie Lerner Glucose [Mass/Vol] 115 mg/dL Critically high 74-106 [facility] Comment on above: Performed By: #### R ENAL, LIPID, LIVER, TSH #### [facility] [address] [place] [address] Dr. Eddie Lerner Potassium [Moles/Vol] 5.1 mmol/L Normal 3.5-5.1 [facility] Comment on above: Performed By: #### R ENAL, LIPID, LIVER, TSH #### [facility] [address] [place] [address] Dr. Eddie Lerner Sodium [Moles/Vol] 137 mmol/L Normal 136-145 [facility] Comment on above: Performed By: #### R ENAL, LIPID, LIVER, TSH #### [facility] [address] [address] [address] Eddie Lerner Urea nitrogen [Mass/Vol] 26.0 mg/dL Critically high 7.0-18.0 [facility] Comment on above: Performed By: #### R ENAL, LIPID, LIVER, TSH #### [facility] [address] [address] [address] Eddie Lerner Urea nitrogen/Creatinine [Mass ratio] 11.4 mg/mg Normal [facility] Comment on above: Performed By: #### R ENAL, LIPID, LIVER, TSH #### [facility] [address] [address] [address] Eddie Lerner TISSUE CULTUREon 01-08-2022 Anaerobic Culture, Extended Incubation Final report Normal [facility] Comment on above: Performed By: #### C XTISSU ####[facility] [address] [address]Dr. Eddie Lerner Result 1 Comment Normal [facility] Comment on above: Result Comment: Diph theroids, not Corynebacterium jeikeium Light growth Susceptibility not normally performed on this organism. Performed By: #### C XTISSU ####[facility] [address] [address]Dr. Eddie Lerner Result Comment: No a naerobes recovered. Tissue Culture Final report Abnormal [facility] Comment on above: Performed By: #### C XTISSU ####[facility] [address] [address]Dr. Eddie Lerner POINT OF CARE GLUCOSEon 11-28 Glucose [Mass/Vol] 89 mg/dL Normal 74-106 [facility] Comment on above: Performed By: #### R ENAL, LIPID, LIVER, TSH #### [facility] [address] [address] [address] Eddie Lerner Glucose [Mass/Vol] 85 mg/dL Normal 74-106 [facility] Comment on above: Performed By: #### P OCGLUC ####[facility] [id number] [address]Dr. Eddie Lerner GRAM STAINon 12-21-2021 COMMENTS NO ORGANISMS OBSERVED Normal [facility] Comment on above: Performed By: #### R ENAL, LIPID, LIVER, TSH #### [facility] [address] [address] [address] Eddie Lerner DIPHTHEROIDS Normal [facility] Comment on above: Performed By: #### R ENAL, LIPID, LIVER, TSH #### [facility] [address] [address] [address] Eddie Lerner EPITHELIALS Normal [facility] Comment on above: Performed By: #### R ENAL, LIPID, LIVER, TSH #### [facility] [address] [address] [address] Eddie Lerner FUNGAL ELEMENTS Normal [facility] Comment on above: Performed By: #### R ENAL, LIPID, LIVER, TSH #### [facility] [address] [address] [address] Eddie PRINGLE NEG BACILLI Normal [facility] Comment on above: Performed By: #### R ENAL, LIPID, LIVER, TSH #### [facility] [address] [address] [address] Eddie PRINGLE NEG DIPPLOCOCCI Normal [facility] Comment on above: Performed By: #### R ENAL, LIPID, LIVER, TSH #### [facility] [address] [address] [address] Eddie PRINGLE POS BACILLI Normal [facility] Comment on above: Performed By: #### R ENAL, LIPID, LIVER, TSH #### [facility] [address] [address] [address] Eddie Lerner GRAM POSITIVE COCCI Normal [facility] Comment on above: Performed By: #### R ENAL, LIPID, LIVER, TSH #### [facility] [address] [address] [address] Eddie Lerner GRAM STAIN SOURCE Lt 1st Metatarsal Bone Normal [facility] Comment on above: Performed By: #### R ENAL, LIPID, LIVER, TSH #### [facility] [address] [address] [address] Eddie Lerner GS_DIPTH Normal [facility] Comment on above: Performed By: #### R ENAL, LIPID, LIVER, TSH #### [facility] [address] [address] [address] Eddie Lerner WBC RARE Normal [facility] Comment on above: Performed By: #### R ENAL, LIPID, LIVER, TSH #### [facility] [address] [address] [address] Eddie Lerner POINT OF CARE GLUCOSEon 11-28 Glucose [Mass/Vol] 148 mg/dL Critically high 74-106 [facility] Comment on above: Performed By: #### A 1C #### [facility] [address] [address] [address] Eddie Lerner Glucose [Mass/Vol] 100 mg/dL Normal 74-106 [facility] Comment on above: Performed By: #### P OCGLUC ####[facility] [id number] [address]Dr. Eddie Lerner Glucose [Mass/Vol] 85 mg/dL Normal 74-106 [facility] Comment on above: Performed By: #### P OCGLUC ####[facility] [id number] [address]Dr. Eddie Lerner Glucose [Mass/Vol] 83 mg/dL Normal 74-106 [facility] Comment on above: Performed By: #### R ENAL, LIPID, LIVER, TSH #### [facility] [address] [address] [address] Eddie Lerner Covid-19 PCR (CVD[facility])on 11-28 SARS-CoV-2 (COVID-19) RNA SUDHA+probe Ql (Unsp spec) Not detected Normal NOT DETECTED [facility] Comment on above: Result Comment: This test is not yet approved or cleared by the [place] FDA. When there are no FDA-approved or cleared tests available, and other criteria are met, FDA can make tests available under an emergency access mechanism called an Emergency Use Authorization (EUA). The EUA for this test is supported by the [place] of Health and Human Service's (HHS's) declaration [...] with SARS-CoV-2. Performed By: #### C VDTBH ####[facility] [id number] [address]Dr. Eddie Lerner PROF CHEM 8 (BAS METB)on Anion gap [Moles/Vol] 11.5 mmol/L Normal [facility] Comment on above: Performed By: #### R ENAL, LIPID, LIVER, TSH #### [facility] [address] [place] [address] Dr. Eddie Lerner Calcium [Mass/Vol] 9.0 mg/dL Normal 8.5-10.1 [facility] Comment on above: Performed By: #### R ENAL, LIPID, LIVER, TSH #### [facility] [address] [place] [address] Dr. Eddie Lerner Chloride [Moles/Vol] 102 mmol/L Normal 98-107 [facility] Comment on above: Performed By: #### R ENAL, LIPID, LIVER, TSH #### [facility] [address] [address] [address] Eddie Lerner CO2 [Moles/Vol] 24.8 mmol/L Normal 21.0-32.0 [facility] Comment on above: Performed By: #### R ENAL, LIPID, LIVER, TSH #### [facility] [address] [place] [address] Dr. Eddie Lerner Creatinine [Mass/Vol] 2.19 mg/dL Critically high 0.70-1.30 [facility] Comment on above: Performed By: #### R ENAL, LIPID, LIVER, TSH #### [facility] [address] [place] [address] Dr. Eddie Lerner EGFR-AF ANGUILLAN 37 mL/min/1.73m2 Critically low >=60 [facility] Comment on above: Performed By: #### R ENAL, LIPID, LIVER, TSH #### [facility] [address] [address] [address] Eddie Lerner EGFR-NON AF ANGUILLAN 31 mL/min/1.73m2 Critically low >=60 [facility] Comment on above: Performed By: #### R ENAL, LIPID, LIVER, TSH #### [facility] [address] [address] [address] Eddie Lerner Glucose [Mass/Vol] 330 mg/dL Critically high 74-106 [facility] Comment on above: Performed By: #### R ENAL, LIPID, LIVER, TSH #### [facility] [address] [address] [address] Eddie Lerner Potassium [Moles/Vol] 5.3 mmol/L Critically high 3.5-5.1 [facility] Comment on above: Performed By: #### R ENAL, LIPID, LIVER, TSH #### [facility] [address] [address] [address] Eddie Lerner Sodium [Moles/Vol] 133 mmol/L Critically low 136-145 [facility] Comment on above: Performed By: #### R ENAL, LIPID, LIVER, TSH #### [facility] [facility] [address] [address] [address] Eddie Lerner Urea nitrogen [Mass/Vol] 25.0 mg/dL Critically high 7.0-18.0 [facility] Comment on above: Performed By: #### R ENAL, LIPID, LIVER, TSH #### [facility] [address] [address] [address] Eddie Lerner Urea nitrogen/Creatinine [Mass ratio] 11.4 mg/mg Normal [facility] Comment on above: Performed By: #### R ENAL, LIPID, LIVER, TSH #### [facility] [address] [address] [address] Eddie Lerner Albumin [Mass/volume] in Ser um or Plasmaon 08-25-2020 Albumin [Mass/Vol] 2.0 g/dL 3.2-5.5 [facility] Basophils Auto (Bld) [#/Vol] on 08-25-2020 Basophils (Bld) [#/Vol] 0.0 10*3/uL 0.0-0.2 [facility] Basophils/100 WBC Auto (Bld) on 08-25-2020 Basophils/100 WBC (Bld) 0.1 % [facility] Blood anisocytosis detection on 08-25-2020 Anisocytosis Ql (Bld) Slight [facility] Blood hemoglobin measurement (mass/volume)on 08-25-2020 Hemoglobin (Bld) [Mass/Vol] 10.1 g/dL 13.0-17.0 [facility] Blood leukocytes automated c ount (number/volume)on 08-25-2020 WBC (Bld) [#/Vol] 12.6 10*3/uL 4.5-11.0 [facility] Blood polychromasia detectio n by light microscopyon 08-25-2020 Polychromasia LM Ql (Bld) Slight [facility] Creatinine and Glomerular fi ltration rate.predicted panel (S/P/Bld)on 08-25-2020 Creatinine [Mass/Vol] 4.06 mg/dL 0.64-1.27 [facility] Eosinophils Auto (Bld) [#/Vo l]on 08-25-2020 Eosinophils (Bld) [#/Vol] 0.0 10*3/uL 0.0-0.45 [facility] Eosinophils/100 WBC Auto (Bl d)on 08-25-2020 Eosinophils/100 WBC (Bld) 0.1 % [facility] Erythrocyte distribution wid th Auto (RBC) [Ratio]on 08-25-2020 Erythrocyte distribution width (RBC) [Ratio] 16.6 % 12.0-14.8 [facility] Estimated glomerular filtrat ion rate (GFR) non- Americanon 08-25-2020 GFR/1.73 sq M.predicted among non-blacks MDRD (S/P/Bld) [Vol rate/Area] 15 mL/Min [facility] Glucose Glucometer (BldC) [M ass/Vol]on 08-25-2020 Glucose [Mass/Vol] 122 mg/dL [facility] Comment on above: Random Glucose Refer ence Range is dependent on time and content of last meal. Glucose of more than 200 mg/dL in a nonstressed, ambulatory subject supports the diagnosis of Diabetes Mellitus. Hematocrit Auto (Bld) [Volum e fraction]on 08-25-2020 Hematocrit (Bld) [Volume fraction] 31.7 % 38.8-50.0 [facility] Laboratory - Hematology and Cell countson 08-25-2020 Nucleated RBC/100 WBC (Bld) [Ratio] 0.2 % 0-0.5 [facility] Lymphocytes Auto (Bld) [#/Vo l]on 08-25-2020 Lymphocytes (Bld) [#/Vol] 1.1 10*3/uL 1.00-4.8 [facility] Lymphocytes/100 WBC Auto (Bl d)on 08-25-2020 Lymphocytes/100 WBC (Bld) 8.9 % [facility] MCH Auto (RBC) [Entitic mass ]on 08-25-2020 MCH (RBC) [Entitic mass] 26.2 pg 27.5-35.2 [facility] MCHC Auto (RBC) [Mass/Vol]on 08-25-2020 MCHC (RBC) [Mass/Vol] 31.9 g/dL 32.5-35.6 [facility] MCV Auto (RBC) [Entitic vol] on 08-25-2020 MCV (RBC) [Entitic vol] 82.3 fL 83.5-101 [facility] Monocytes Auto (Bld) [#/Vol] on 08-25-2020 Monocytes (Bld) [#/Vol] 1.2 10*3/uL 0.0-0.8 [facility] Monocytes/100 WBC Auto (Bld) on 08-25-2020 Monocytes/100 WBC (Bld) 9.6 % [facility] Neutrophils Auto (Bld) [#/Vo l]on 08-25-2020 Neutrophils (Bld) [#/Vol] 10.2 10*3/uL 1.8-7.7 [facility] Neutrophils/100 WBC Auto (Bl d)on 08-25-2020 Neutrophils/100 WBC (Bld) 81.3 % [facility] No Panel Informationon 08-25 Bedside Glucose Comment Glu2: cleaned meter [facility] Estimated GFR () 18 mL/Min [facility] Comment on above: GFR estimated refere nce range: According to KDOQI guidelines, <60 ml/min/1.73m2 is sufficient to diagnose a patient with chronic kidney disease. Pharmacy Creatinine Clearance (Chem 31.84 [facility] Platelet Estimate Normal Normal [facility] Platelet Morphology Comment Normal Normal [facility] Phosphate [Mass/volume] in S miki or Plasmaon 08-25-2020 Phosphate [Mass/Vol] 5.3 mg/dL 2.5-4.6 [facility] Platelet mean volume Auto (B ld) [Entitic vol]on 08-25-2020 Platelet mean volume (Bld) [Entitic vol] 7.1 fL 6.6-10.1 [facility] Platelets Auto (Bld) [#/Vol] on 08-25-2020 Platelets (Bld) [#/Vol] 388 10*3/uL 150-450 [facility] RBC Auto (Bld) [#/Vol]on RBC (Bld) [#/Vol] 3.85 10*6/uL 3.90-5.60 [facility] RBC morphologyon 08-25-2020 RBC morphology finding Nom (Bld) N/A [facility] Serum or plasma calcium joel urement (mass/volume)on 08-25-2020 Calcium [Mass/Vol] 8.7 mg/dL 8.2-10.2 [facility] Serum or plasma chloride faraz surement (moles/volume)on 08-25-2020 Chloride [Moles/Vol] 99 mmol/L 95-114 [facility] Serum or plasma glucose joel urement (mass/volume)on 08-25-2020 Glucose [Mass/Vol] 113 mg/dL 70-100 [facility] Comment on above: ADA recommended refe rence rangeRandom Glucose Reference Range is dependent on time and content of last meal. Glucose of more than 200 mg/dL in a nonstressed, ambulatory subject supports the diagnosis of Diabetes Mellitus. Serum or plasma potassium me asurement (moles/volume)on 08-25-2020 Potassium [Moles/Vol] 4.6 mmol/L 3.5-5.1 [facility] Serum or plasma sodium measu rement (moles/volume)on 08-25-2020 Sodium [Moles/Vol] 135 mmol/L 136-146 [facility] Serum or plasma total carbon dioxide measurement (moles/volume)on 08-25-2020 CO2 [Moles/Vol] 26.2 mmol/L 22.0-30.0 Replaced By [facility] Serum or plasma urea nitroge n measurement (mass/volume)on 08-25-2020 Urea nitrogen [Mass/Vol] 75 mg/dL 01-19 [facility] Erythrocyte basophilic stipp ling detectionon 08-24-2020 Basophilic stippling LM Ql (Bld) Slight [facility] Laboratory - Hematology and Cell countson 08-24-2020 Band form neutrophils/100 WBC (Bld) 1 % 0-5 [facility] Lymphocytes/100 WBC Auto (Bl d)on 08-24-2020 Lymphocytes/100 WBC (Bld) 6 % 18-42 [facility] Metamyelocytes/100 WBC Manua l cnt (Bld)on 08-24-2020 Metamyelocytes/100 WBC (Bld) 1 % 0-0 [facility] Monocytes/100 WBC Manual cnt (Bld)on 08-24-2020 Monocytes/100 WBC (Bld) 4 % 2-11 [facility] Myelocytes/100 WBC Manual cn t (Bld)on 08-24-2020 Myelocytes/100 WBC (Bld) 1 % 0-0 [facility] No Panel Informationon 08-24 [place]leau Slight [facility] Segmented neutrophils/100 WB C Manual cnt (Bld)on 08-24-2020 Segmented neutrophils/100 WBC (Bld) 87 % 50-70 [facility] No Panel Informationon 08-23 Bedside Glucose #[address]/rn [facility] Bedside Glucose #3 Comment Cleaned meter [facility] Serum nuclear antibody titer on 08-23-2020 Nuclear Ab (S) [Titer] Negative [facility] Comment on above: Negative <1:80 Ericsondra karrie 1:80 Positive >1:80Performed at: [place] [address] [id number] Director: Mata Brian PhD, Phone: [phone] Serum or plasma rheumatoid f actor measurement (units/volume)on 08-23-2020 Rheumatoid factor Qn 20.6 [IU]/mL [facility] Comment on above: Performed at: [place] [address] [id number] Director: Mata Brian PhD, Phone: [phone] CT biopsyon 08-22-2020 Transferrin [Mass/Vol] 104 mg/dL 180-380 [facility] Ferritin [Mass/volume] in Se rum or Plasmaon 08-22-2020 Ferritin [Mass/Vol] 334.8 ng/mL 23.9-336.2 [facility] Iron [Mass/volume] in Serum or Plasmaon 08-22-2020 Iron [Mass/Vol] 17 ug/dL 40-160 [facility] Iron binding capacity [Mass/ volume] in Serum or Plasmaon 08-22-2020 Iron binding capacity [Mass/Vol] 146 ug/dL 255-450 [facility] Iron saturation [Mass Fracti on] in Serum or Plasmaon 08-22-2020 Iron saturation [Mass fraction] 11.0 % 20-50 [facility] Creatine kinase [Enzymatic a ctivity/volume] in Serum or Plasmaon 08-21-2020 CK [Catalytic activity/Vol] 45 U/L 22-269 [facility] No Panel Informationon 08-21 Dohle Bodies Slight [facility] Serum or plasma cardiac trop onin I measurement (mass/volume)on 08-21-2020 Troponin I.cardiac [Mass/Vol] ng/mL 0-0.02 [facility] Comment on above: HÉCTOR FL Cut off value > or equal to 0.03 ng/mL in conjunction with clinical conditions of myocardial infarction.([email or web address]/guidelines) Serum or plasma creatine kin ase MB (CKMB)/total creatine kinase (CK) ratio by calculaon 08-21-2020 CK.MB Calc [Catalytic fraction] 5.1 % 0.00-2.50 [facility] Serum or plasma creatine kin ase MB measurement (mass/volume)on 08-21-2020 CK.MB [Mass/Vol] 2.3 ng/mL 0.6-6.3 [facility] Erythrocyte sedimentation ra te by Photometric methodon 08-20-2020 ESR Photometric method (Bld) [Velocity] 108 mm/hr 0-19 [facility] Serum or plasma C reactive p rotein measurement (mass/volume)on 08-20-2020 CRP [Mass/Vol] 19.4 mg/dL 0.0-1.0 [facility] ABO and Rh group post transf usion reaction Nom (Bld)on 08-19-2020 Microscopic observation Gram stain Nom (Unsp spec) [facility] Glucose mean value [Mass/vol ume] in Blood Estimated from glycated hemoglobinon 08-19-2020 Average glucose Estimated from glycated hemoglobin (Bld) [Mass/Vol] 298 mg/dL [facility] Hemoglobin A1c percentageon 08-19-2020 HbA1c (Bld) [Mass fraction] 12.0 % 4.3-5.6 [facility] Comment on above: Increased risk for d iabetes: 5.7 - 6.4diabetes: >6.4glycemic control for adults with diabetes: <7.0 Laboratory - Chemistry and C hemistry - challengeon 08-19-2020 Magnesium [Mass/Vol] 2.0 mg/dL 1.6-2.6 [facility] No Panel Informationon 08-19 25-Hydroxy Vitamin D Total 24.6 ng/mL 30-100 [facility] Comment on above: VITAMIN D [...] aPTT Coag (PPP) [Time] 36.9 s 25.1-36.5 [facility] Albumin [Mass/volume] in Ser um or Plasmaon 08-18-2020 Albumin [Mass/Vol] 2.7 g/dL 3.2-5.5 [facility] Bacterial blood cultureon Bacteria identified Cx Nom (Bld) NO GROWTH 5 DAYS [facility] Basophils Auto (Bld) [#/Vol] on 08-18-2020 Basophils (Bld) [#/Vol] 0.0 10*3/uL 0.0-0.2 [facility] Basophils/100 WBC Auto (Bld) on 08-18-2020 Basophils/100 WBC (Bld) 0.3 % [facility] Beta-hydroxybutyric acid faraz surementon 08-18-2020 Beta hydroxybutyrate [Mass/Vol] 0.44 mmol/L 0.02-0.27 [facility] Blood hemoglobin measurement (mass/volume)on 08-18-2020 Hemoglobin (Bld) [Mass/Vol] 11.8 g/dL 13.0-17.0 [facility] Blood leukocytes automated c ount (number/volume)on 08-18-2020 WBC (Bld) [#/Vol] 15.3 10*3/uL 4.5-11.0 [facility] COVID-19 Detected/Not Detect edon 08-18-2020 SARS-CoV-2 (COVID-19) RNA SUDHA+non-probe Ql (Nph) Not detected Not Detecte [facility] Comment on above: This is a duplicate RP2.1 COVID (PCR) result to be used for statistical tracking purpose only. COVID-19 SOFIAon 08-18-2020 SARS-CoV+SARS-CoV-2 (COVID-19) Ag IA.rapid Ql (Resp) Negative Negative [facility] Comment on above: This is a duplicate Ayah SARS Antigen (AGUSTINA) result to be used for statistical tracking purpose only. Creatinine and Glomerular fi ltration rate.predicted panel (S/P/Bld)on 08-18-2020 Creatinine [Mass/Vol] 3.04 mg/dL 0.64-1.27 [facility] Eosinophils Auto (Bld) [#/Vo l]on 08-18-2020 Eosinophils (Bld) [#/Vol] 0.5 10*3/uL 0.0-0.45 [facility] Eosinophils/100 WBC Auto (Bl d)on 08-18-2020 Eosinophils/100 WBC (Bld) 3.4 % [facility] Erythrocyte distribution wid th Auto (RBC) [Ratio]on 08-18-2020 Erythrocyte distribution width (RBC) [Ratio] 16.3 % 12.0-14.8 [facility] Estimated glomerular filtrat ion rate (GFR) non- Americanon 08-18-2020 GFR/1.73 sq M.predicted among non-blacks MDRD (S/P/Bld) [Vol rate/Area] 21 mL/Min [facility] Globulin Calc (S) [Mass/Vol] on 08-18-2020 Globulin (S) [Mass/Vol] 4.4 g/dL [facility] Glucose Glucometer (BldC) [M ass/Vol]on 08-18-2020 Glucose [Mass/Vol] 388 mg/dL [facility] Comment on above: Random Glucose Refer ence Range is dependent on time and content of last meal. Glucose of more than 200 mg/dL in a nonstressed, ambulatory subject supports the diagnosis of Diabetes Mellitus. Hematocrit Auto (Bld) [Volum e fraction]on 08-18-2020 Hematocrit (Bld) [Volume fraction] 36.1 % 38.8-50.0 [facility] Laboratory - Chemistry and C hemistry - challengeon 08-18-2020 CO2 [Moles/Vol] 25.7 mmol/L 24.0-29.0 [facility] HCO3 (Bld) [Moles/Vol] 24.3 mmol/L 23.0-29.0 [facility] Magnesium [Mass/Vol] 2.2 mg/dL 1.6-2.6 [facility] Natriuretic peptide B (Bld) [Mass/Vol] 48.0 pg/mL 5-100 [facility] Laboratory - Coagulationon 0 08-18-2020 PT Coag (PPP) [Time] 11.7 s 9.0-12.9 [facility] Laboratory - Hematology and Cell countson 08-18-2020 Nucleated RBC/100 WBC (Bld) [Ratio] 0.1 % 0-0.5 [facility] Lymphocytes Auto (Bld) [#/Vo l]on 08-18-2020 Lymphocytes (Bld) [#/Vol] 0.9 10*3/uL 1.00-4.8 [facility] Lymphocytes/100 WBC Auto (Bl d)on 08-18-2020 Lymphocytes/100 WBC (Bld) 6.1 % [facility] MCH Auto (RBC) [Entitic mass ]on 08-18-2020 MCH (RBC) [Entitic mass] 27.2 pg 27.5-35.2 [facility] MCHC Auto (RBC) [Mass/Vol]on 08-18-2020 MCHC (RBC) [Mass/Vol] 32.6 g/dL 32.5-35.6 [facility] MCV Auto (RBC) [Entitic vol] on 08-18-2020 MCV (RBC) [Entitic vol] 83.5 fL 83.5-101 [facility] Monocytes Auto (Bld) [#/Vol] on 08-18-2020 Monocytes (Bld) [#/Vol] 1.5 10*3/uL 0.0-0.8 [facility] Monocytes/100 WBC Auto (Bld) on 08-18-2020 Monocytes/100 WBC (Bld) 10.1 % [facility] Neutrophils Auto (Bld) [#/Vo l]on 08-18-2020 Neutrophils (Bld) [#/Vol] 12.3 10*3/uL 1.8-7.7 [facility] Neutrophils/100 WBC Auto (Bl d)on 08-18-2020 Neutrophils/100 WBC (Bld) 80.1 % [facility] No Panel Informationon 08-18 Respiratory Panel (PCR) [facility] Blood Gas Critical Value See comment [facility] Comment on above: Critical Value fonseca d on: 08/18/2020 at 17:44 Blood Gas Sample Site Venous [facility] FiO2 21 % [facility] Venous Blood Base Excess -1.5 mmol/L -3.0-3.0 [facility] Venous Blood Oxygen Content 4.1 mmol/L 6.6-9.7 [facility] Venous Blood Oxygen Saturation 53.3 % 73.0-76.0 [facility] Venous Blood Partial Pressure CO2 45.2 mm[Hg] 38.0-50.0 [facility] Venous Blood Partial Pressure O2 24.4 mm[Hg] 35.0-45.0 [facility] Venous Blood pH 7.35 7.32-7.43 [facility] Estimated GFR () 26 mL/Min [facility] Comment on above: GFR estimated refere nce range: According to KDOQI guidelines, <60 ml/min/1.73m2 is sufficient to diagnose a patient with chronic kidney disease. Pharmacy Creatinine Clearance (Chem 38.57 [facility] Platelet mean volume Auto (B ld) [Entitic vol]on 08-18-2020 Platelet mean volume (Bld) [Entitic vol] 7.3 fL 6.6-10.1 [facility] Platelet poor plasma interna tional normalized ratio (INR) by coagulation assay (relaton 08-18-2020 INR Coag (PPP) [Relative time] 1.0 {INR} [facility] Comment on above: INR Therapeutic [...] 08-18-2020 Platelets (Bld) [#/Vol] 249 10*3/uL 150-450 [facility] Protein [Mass/volume] in Ser um or Plasmaon 08-18-2020 Protein [Mass/Vol] 7.1 g/dL 6.1-7.9 [facility] RBC Auto (Bld) [#/Vol]on RBC (Bld) [#/Vol] 4.32 10*6/uL 3.90-5.60 [facility] Serum or plasma alanine gomez otransferase measurement without P-5'-P (enzymatic activion 08-18-2020 ALT No additional P-5'-P [Catalytic activity/Vol] 13 U/L 10-60 [facility] Serum or plasma albumin/glob ulin mass ratioon 08-18-2020 Albumin/Globulin [Mass ratio] 0.6 {ratio} [facility] Serum or plasma alkaline kayode sphatase measurement (enzymatic activity/volume)on 08-18-2020 ALP [Catalytic activity/Vol] 88 U/L 32 [facility] Serum or plasma aspartate am inotransferase measurement (enzymatic activity/volume)on 08-18-2020 AST [Catalytic activity/Vol] 16 U/L 10- [facility] Serum or plasma calcium joel urement (mass/volume)on 08-18-2020 Calcium [Mass/Vol] 8.9 mg/dL 8.2-10.2 [facility] Serum or plasma cardiac trop onin I measurement (mass/volume)on 08-18-2020 Troponin I.cardiac [Mass/Vol] ng/mL 0-0.02 [facility] Comment on above: HÉCTOR FL Cut off value > or equal to 0.03 ng/mL in conjunction with clinical conditions of myocardial infarction.([email or web address]/guidelines) Serum or plasma chloride faraz surement (moles/volume)on 08-18-2020 Chloride [Moles/Vol] 95 mmol/L 95-114 [facility] Serum or plasma glucose joel urement (mass/volume)on 08-18-2020 Glucose [Mass/Vol] 512 mg/dL 70-100 [facility] Comment on above: Results calledat 165 9 on 08/18/20 ADA recommended reference rangeRandom Glucose Reference Range is dependent on time and content of last meal. Glucose of more than 200 mg/dL in a nonstressed, ambulatory subject supports the diagnosis of Diabetes Mellitus. Serum or plasma potassium me asurement (moles/volume)on 08-18-2020 Potassium [Moles/Vol] 4.2 mmol/L 3.5-5.1 [facility] Serum or plasma sodium measu rement (moles/volume)on 08-18-2020 Sodium [Moles/Vol] 128 mmol/L 136-146 [facility] Serum or plasma total biliru bin measurement (mass/volume)on 08-18-2020 Bilirubin [Mass/Vol] 0.7 mg/dL 0.3-1.2 [facility] Serum or plasma total carbon dioxide measurement (moles/volume)on 08-18-2020 CO2 [Moles/Vol] 22.6 mmol/L 22.0-30.0 [facility] Serum or plasma urea nitroge n measurement (mass/volume)on 08-18-2020 Urea nitrogen [Mass/Vol] 27 mg/dL 01-19 [facility] CBC COMPLETE BLOOD COUNTon 07-22-2020 Erythrocyte distribution width (RBC) [Ratio] 15.0 % Normal 11.5-15.0 [facility] Comment on above: Order Comment: No: D o not add to previous draw Performed By: #### [id number] #### [facility] [address] Hematocrit (Bld) [Volume fraction] 32.4 % Low 39.0-50.0 [facility] Comment on above: Order Comment: No: D o not add to previous draw Performed By: #### [id number] #### [facility] [address] [facility] [place] [address], [facility] Hemoglobin (Bld) [Mass/Vol] 9.5 g/dL Low 13.0-17.0 [facility] Comment on above: Order Comment: No: D o not add to previous draw Performed By: #### [id number] #### [facility] [address] [place] [address], [facility] MCH (RBC) [Entitic mass] 26.7 pg Low 27.0-33.0 [facility] Comment on above: Order Comment: No: D o not add to previous draw Performed By: #### [id number] #### [facility] [address] [place] [address], [facility] MCHC (RBC) [Mass/Vol] 29.3 g/dL Low 32.0-35.0 [facility] Comment on above: Order Comment: No: D o not add to previous draw Performed By: #### [id number] #### [facility] [address] [place] [id number], [facility] MCV (RBC) [Entitic vol] 91.0 fL Normal 82.0-98.0 [facility] Comment on above: Order Comment: No: D o not add to previous draw Performed By: #### [id number] #### [facility] [address] [place] [address], [facility] Nucleated RBC/100 WBC (Bld) [Ratio] 0 % Normal 0-0 [facility] Comment on above: Order Comment: No: D o not add to previous draw Performed By: #### [id number] #### [facility] [address] [place] [address], [place] PLAT CNT 276 10*3/uL Normal 150-400 [facility] Comment on above: Order Comment: No: D o not add to previous draw Performed By: #### [id number] #### [facility] [address] [facility] [place] [address], [facility] RBC (Bld) [#/Vol] 3.56 10*6/uL Low 4.20-5.70 [facility] Comment on above: Order Comment: No: D o not add to previous draw Performed By: #### [id number] #### [facility] [address] [place] [id number], [facility] WBC (Bld) [#/Vol] 8.61 10*3/uL Normal 4.00-10.60 [facility] Comment on above: Order Comment: No: D o not add to previous draw Performed By: #### [id number] #### [facility] [address] [place] [address], [facility] COMP METABOLIC PANELon 07-22 Albumin [Mass/Vol] 2.7 g/dL Low 3.5-5.7 [facility] Comment on above: Order Comment: No: D o not add to previous draw Performed By: #### [id number] #### [facility] [address] [place] [address], [place] ALKALINE PHOSPH 70 IU/L Normal 34-104 [facility] Comment on above: Order Comment: No: D o not add to previous draw Performed By: #### [id number] #### [facility] [address] [place] [address], [place] ALT [Catalytic activity/Vol] 4 U/L Low 7-52 [facility] Comment on above: Order Comment: No: D o not add to previous draw Performed By: #### 8 [id number] #### [facility] [address] [place] [address], [place] AST [Catalytic activity/Vol] 15 U/L Normal 13-39 [facility] Comment on above: Order Comment: No: D o not add to previous draw Performed By: #### 8 5499 #### [facility] [address] [place] [address], [place] Bilirubin [Mass/Vol] 0.2 mg/dL Low 0.3-1.0 [facility] Comment on above: Order Comment: No: D o not add to previous draw Performed By: #### 8 5499 #### [facility] [address] [place] [address], [place] Calcium [Mass/Vol] 8.9 mg/dL Normal 8.6-10.3 [facility] Comment on above: Order Comment: No: D o not add to previous draw Performed By: #### 8 5499 #### [facility] [address] [place] [address], [place] Chloride [Moles/Vol] 109 mmol/L High 98-107 [facility] Comment on above: Order Comment: No: D o not add to previous draw Performed By: #### 8 5499 #### [facility] [address] [place] [address], [place] CO2 [Moles/Vol] 24 mmol/L Normal 21-31 [facility] Comment on above: Order Comment: No: D o not add to previous draw Performed By: #### 8 5499 #### [facility] [address] [place] [address], [place] Creatinine [Mass/Vol] 3.39 mg/dL High 0.70-1.30 [facility] Comment on above: Order Comment: No: D o not add to previous draw Performed By: #### 8 5499 #### [facility] [address] [place] [address], [facility] eGFR- 23 ml/min/1.73sq m Abnormal >60 [facility] Comment on above: Order Comment: No: D o not add to previous draw Performed By: #### 8 5499 #### [facility] [address] [place] [address], [place] eGFR- non- 19 ml/min/1.73sq m Abnormal >60 [facility] Comment on above: Order Comment: No: D o not add to previous draw Performed By: #### 8 5499 #### [facility] [address] [place] [address], [place] Glucose [Mass/Vol] 90 mg/dL Normal 70-100 [facility] Comment on above: Order Comment: No: D o not add to previous draw Performed By: #### 8 5499 #### [facility] [address] [place] [address], [place] Potassium [Moles/Vol] 4.4 mmol/L Normal 3.5-5.1 [facility] Comment on above: Order Comment: No: D o not add to previous draw Performed By: #### 8 5499 #### [facility] [address] [place] [address], [place] Protein [Mass/Vol] 5.9 g/dL Low 6.0-8.3 [facility] Comment on above: Order Comment: No: D o not add to previous draw Performed By: #### 8 5499 #### [facility] [address] [place] [address], [place] Sodium [Moles/Vol] 140 mmol/L Normal 136-145 [facility] Comment on above: Order Comment: No: D o not add to previous draw Performed By: #### 8 5499 #### [facility] [address] [place] [address], [place] Urea nitrogen [Mass/Vol] 35 mg/dL High 7-25 [facility] Comment on above: Order Comment: No: D o not add to previous draw Performed By: #### 8 5499 #### [facility] [address] [place] [address], [place] POC GLUCOSE LABon 07-22-2020 Glucose [Mass/Vol] 192 mg/dL High 70-100 [facility] Comment on above: Performed By: #### 8 5499 #### [facility] [address] [place] [address], [place] Glucose [Mass/Vol] 95 mg/dL Normal 70-100 [facility] Comment on above: Performed By: #### 5 7307, 59320 #### [facility] [address] [place] [address], [place] Glucose [Mass/Vol] 123 mg/dL High 70-100 [facility] Comment on above: Performed By: #### 8 5499 ####[facility] [place] [address], [place] ARTERIAL BLOOD GAS WITH ICAo n 07-21-2020 BASE EXCESS -2 mmol/L Normal -2-3 [facility] Comment on above: Performed By: #### 8 [id number] #### [facility] [address] [place] [address], [facility] [employer] FOCUS Normal [facility] Comment on above: Performed By: #### 8 5499 #### [facility] [address] [place] [address], [place] HCO3 (Bld) [Moles/Vol] 24 mmol/L Normal 21-28 [facility] Comment on above: Performed By: #### 8 5499 #### [facility] [address] [place] [address], [place] IONIZED CALCIUM 1.25 mmol/L Normal 1.13-1.32 [facility] Comment on above: Performed By: #### 8 5499 #### [facility] [address] [place] [address], [place] LPM 4.0 LPM Normal [facility] Comment on above: Performed By: #### 8 5499 #### [facility] [address] [place] [address], [place] MODALITY BIPAP Normal [facility] Comment on above: Performed By: #### 8 5499 #### [facility] [address] [place] [address], [place] Oxygen (Bld) [Partial pressure] 91 mm[Hg] Normal 83-108 [facility] Comment on above: Performed By: #### 8 5499 #### [facility] [address] [place] [address], [place] Oxygen saturation in Blood 95.9 % Normal 94.0-97.0 [facility] Comment on above: Performed By: #### 8 5499 #### [facility] [address] [place] [address], [place] PCO2 47 mmHg High 35-45 [facility] Comment on above: Performed By: #### 8 5499 #### [facility] [address] [place] [address], [facility] PEEP 8.0 CMH20 Normal [facility] Comment on above: Performed By: #### 8 5499 #### [facility] [address] [place] [address], [facility] pH (Bld) 7.32 [pH] Low 7.35-7.45 [facility] Comment on above: Performed By: #### 8 5499 #### [facility] [address] [place] [address], [facility] PRESSURE SUPPORT 16 Normal [facility] Comment on above: Performed By: #### 8 5499 #### [facility] [address] [place] [address], [facility] BASE EXCESS -3 mmol/L Low -2-3 [facility] Comment on above: Performed By: #### 3 0318 #### [facility] [address] [place] [address], [facility] [employer] NASAL CANNULA Normal [facility] Comment on above: Performed By: #### 3 8 #### [facility] [address] [place] [address], [place] HCO3 (Bld) [Moles/Vol] 25 mmol/L Normal 21-28 [facility] Comment on above: Performed By: #### 3 8 #### [facility] [address] [place] [address], [facility] IONIZED CALCIUM 1.26 mmol/L Normal 1.13-1.32 [facility] Comment on above: Performed By: #### 3 8 #### [facility] [address] [place] [address], [place] LPM 2.0 LPM Normal [facility] Comment on above: Performed By: #### 3 8 #### [facility] [address] [place] [address], [place] Oxygen (Bld) [Partial pressure] 92 mm[Hg] Normal 83-108 [facility] Comment on above: Performed By: #### 3 8 #### [facility] [address] [place] [address], [place] Oxygen saturation in Blood 95.7 % Normal 94.0-97.0 [facility] Comment on above: Performed By: #### 3 8 #### [facility] [address] [place] [address], [place] PCO2 54 mmHg High 35-45 [facility] Comment on above: Performed By: #### 3 8 #### [facility] [address] [place] [address], [place] pH (Bld) 7.27 [pH] Low 7.35-7.45 [facility] Comment on above: Performed By: #### 3 8 #### [facility] [address] [place] [address], [place] BASIC METABOLIC PANELon 03-2 Calcium [Mass/Vol] 9.0 mg/dL Normal 8.6-10.3 [facility] Comment on above: Order Comment: No: D o not add to previous drawPt not in room rn will return when back. Performed By: #### 3 4 #### [facility] [address] [place] [address], [place] Chloride [Moles/Vol] 106 mmol/L Normal 98-107 [facility] Comment on above: Order Comment: No: D o not add to previous drawPt not in room rn will return when back. Performed By: #### 3 1943 #### [facility] [address] [place] [address], [place] CO2 [Moles/Vol] 25 mmol/L Normal 21-31 [facility] Comment on above: Order Comment: No: D o not add to previous drawPt not in room rn will return when back. Performed By: #### 3 1943 #### [facility] [address] [place] [address], [facility] Creatinine [Mass/Vol] 3.75 mg/dL High 0.70-1.30 [facility] Comment on above: Order Comment: No: D o not add to previous drawPt not in room rn will return when back. Performed By: #### 3 1943 #### [facility] [address] [place] [address], [facility] eGFR- 20 ml/min/1.73sq m Abnormal >60 [facility] Comment on above: Order Comment: No: D o not add to previous drawPt not in room rn will return when back. Performed By: #### 3 1943 #### [facility] [address] [place] [address], [facility] eGFR- non- 17 ml/min/1.73sq m Abnormal >60 [facility] Comment on above: Order Comment: No: D o not add to previous drawPt not in room rn will return when back. Performed By: #### 3 1943 #### [facility] [address] [place] [address], [facility] Glucose [Mass/Vol] 132 mg/dL High 70-100 [facility] Comment on above: Order Comment: No: D o not add to previous drawPt not in room rn will return when back. Performed By: #### 3 1943 #### [facility] [address] [place] [address], [facility] Potassium [Moles/Vol] 5.0 mmol/L Normal 3.5-5.1 [facility] Comment on above: Order Comment: No: D o not add to previous drawPt not in room rn will return when back. Performed By: #### 3 1943 #### [facility] [address] [place] [address], [facility] Sodium [Moles/Vol] 138 mmol/L Normal 136-145 [facility] Comment on above: Order Comment: No: D o not add to previous drawPt not in room rn will return when back. Performed By: #### 3 1943 #### [facility] [address] [place] [address], [facility] Urea nitrogen [Mass/Vol] 37 mg/dL High 7-25 [facility] Comment on above: Order Comment: No: D o not add to previous drawPt not in room rn will return when back. Performed By: #### 3 1943 #### [facility] [address] [place], [place] [address] CBC COMPLETE BLOOD COUNTon 07-21-2020 Erythrocyte distribution width (RBC) [Ratio] 15.0 % Normal 11.5-15.0 [facility] Comment on above: Order Comment: No: D o not add to previous drawPt not in room rn will return when back. Performed By: #### 8 5499 #### [facility] [address] [place] [address], [facility] Hematocrit (Bld) [Volume fraction] 33.9 % Low 39.0-50.0 [facility] Comment on above: Order Comment: No: D o not add to previous drawPt not in room rn will return when back. Performed By: #### 8 5499 #### [facility] [address] [place] [address], [facility] Hemoglobin (Bld) [Mass/Vol] 9.9 g/dL Low 13.0-17.0 [facility] Comment on above: Order Comment: No: D o not add to previous drawPt not in room rn will return when back. Performed By: #### 8 5499 #### [facility] [address] [place] [address], [facility] MCH (RBC) [Entitic mass] 26.9 pg Low 27.0-33.0 [facility] Comment on above: Order Comment: No: D o not add to previous drawPt not in room rn will return when back. Performed By: #### 8 5499 #### [facility] [address] [place] [address], [facility] MCHC (RBC) [Mass/Vol] 29.2 g/dL Low 32.0-35.0 [facility] Comment on above: Order Comment: No: D o not add to previous drawPt not in room rn will return when back. Performed By: #### 8 5499 #### [facility] [address] [facility] [place] [address], [facility] MCV (RBC) [Entitic vol] 92.1 fL Normal 82.0-98.0 [facility] Comment on above: Order Comment: No: D o not add to previous drawPt not in room rn will return when back. Performed By: #### 8 5499 #### [facility] [address] Nucleated RBC/100 WBC (Bld) [Ratio] 0 % Normal 0-0 [facility] Comment on above: Order Comment: No: D o not add to previous drawPt not in room rn will return when back. Performed By: #### 8 5499 #### [facility] [address] [facility] [place] [address], [facility] PLAT CNT 288 10*3/uL Normal 150-400 [facility] Comment on above: Order Comment: No: D o not add to previous drawPt not in room rn will return when back. Performed By: #### 8 5499 #### [facility] [address] [facility] [place] [address], [facility] RBC (Bld) [#/Vol] 3.68 10*6/uL Low 4.20-5.70 [facility] Comment on above: Order Comment: No: D o not add to previous drawPt not in room rn will return when back. Performed By: #### 8 5499 #### [facility] [address] [facility] [place] WBC (Bld) [#/Vol] 9.51 10*3/uL Normal 4.00-10.60 [facility] Comment on above: Order Comment: No: D o not add to previous drawPt not in room rn will return when back. Performed By: #### 8 5499 #### [address] CHEST WO CONTRASTon 07-21 CT CHEST WO CONTRAST [facility] Department of Radiology [address] [place] [id number] Patient Name: RASHARD LYMAN : 1960 Sex: M Age: Race: White Pt. Location: [id number] Patient Status: I Ordered Date: 07/21/2020 6:00:00 [...] pneumonia. Electronically signed: Manuel Saldaña. Transcribed by: [email or web address], User Resident: Electronically Signed by: MANUEL SALDAÑA @ 07/21/2020 08:38 AM Normal [facility] Comment on above: Order Comment: Left Peural Effusion POC GLUCOSE LABon 07-21-2020 Glucose [Mass/Vol] 134 mg/dL High 70-100 [facility] Comment on above: Performed By: #### 5 0103 #### [facility] [address] [place] [address], [facility] Glucose [Mass/Vol] 88 mg/dL Normal 70-100 [facility] Comment on above: Performed By: #### 8 5499 #### [facility] [address] [facility] [place] [address], [facility] Glucose [Mass/Vol] 110 mg/dL High 70-100 [facility] Comment on above: Performed By: #### 8 5499 #### [facility] [address] [place] [address], [facility] Glucose [Mass/Vol] 118 mg/dL High 70-100 [facility] Comment on above: Performed By: #### 5 7307, 86314 #### [facility] [address] [place] [address], [place] Glucose [Mass/Vol] 137 mg/dL High 70-100 [facility] Comment on above: Performed By: #### 5 7307, 15527 #### [facility] [address] [place] [address], [facility] BASIC METABOLIC PANELon 03-2 Calcium [Mass/Vol] 8.4 mg/dL Low 8.6-10.3 [facility] Comment on above: Order Comment: No: D o not add to previous draw Performed By: #### 8 5499 #### [facility] [address] [place] [address], [place] Chloride [Moles/Vol] 107 mmol/L Normal 98-107 [facility] Comment on above: Order Comment: No: D o not add to previous draw Performed By: #### 8 5499 #### [facility] [address] [place] [address], [place] CO2 [Moles/Vol] 23 mmol/L Normal 21-31 [facility] Comment on above: Order Comment: No: D o not add to previous draw Performed By: #### 8 5499 #### [facility] [address] [place] [address], [place] Creatinine [Mass/Vol] 3.95 mg/dL High 0.70-1.30 [facility] Comment on above: Order Comment: No: D o not add to previous draw Performed By: #### 8 5499 #### [facility] [address] [place] [address], [place] eGFR- 19 ml/min/1.73sq m Abnormal >60 [facility] Comment on above: Order Comment: No: D o not add to previous draw Performed By: #### 8 5499 #### [facility] [address] [place] [address], [facility] eGFR- non- 16 ml/min/1.73sq m Abnormal >60 [facility] Comment on above: Order Comment: No: D o not add to previous draw Performed By: #### 8 5499 #### [facility] [address] [place] [address], [facility] Glucose [Mass/Vol] 110 mg/dL High 70-100 [facility] Comment on above: Order Comment: No: D o not add to previous draw Performed By: #### 8 5499 #### [facility] [address] [place] [address], [facility] Potassium [Moles/Vol] 4.9 mmol/L Normal 3.5-5.1 [facility] Comment on above: Order Comment: No: D o not add to previous draw Performed By: #### 8 5499 #### [facility] [address] [place] [address], [facility] Sodium [Moles/Vol] 137 mmol/L Normal 136-145 [facility] Comment on above: Order Comment: No: D o not add to previous draw Performed By: #### 8 5499 #### [facility] [address] [place] [address], [facility] Urea nitrogen [Mass/Vol] 37 mg/dL High 7-25 [facility] Comment on above: Order Comment: No: D o not add to previous draw Performed By: #### 8 5499 #### [facility] [address] [place] [address], [facility] CBC W/DIFFon 07-20-2020 ABS IMM GRANS 0.1 10*3/uL Normal 0.0-0.2 [facility] Comment on above: Order Comment: No: D o not add to previous draw Performed By: #### 8 5499 #### [facility] [address] [place] [address], [facility] ABS NEUTROPHILS 5.9 10*3/uL Normal 1.6-7.6 [facility] Comment on above: Order Comment: No: D o not add to previous draw Performed By: #### 8 5499 #### [facility] [address] [place] [address], [facility] Basophils (Bld) [#/Vol] 0.1 10*3/uL Normal 0.0-0.2 [facility] Comment on above: Order Comment: No: D o not add to previous draw Performed By: #### 8 5499 #### [facility] [address] [place] [address], [facility] Basophils/100 WBC (Bld) 1.0 % Normal 0.0-1.0 [facility] Comment on above: Order Comment: No: D o not add to previous draw Performed By: #### 8 5499 #### [facility] [address] [place] [address], [facility] Eosinophils (Bld) [#/Vol] 0.4 10*3/uL Normal 0.0-0.5 [facility] Comment on above: Order Comment: No: D o not add to previous draw Performed By: #### 8 5499 #### [facility] [address] [place] [address], [facility] Eosinophils/100 WBC (Bld) 5.1 % Normal 0.0-6.0 [facility] Comment on above: Order Comment: No: D o not add to previous draw Performed By: #### 8 5499 #### [facility] [address] [place] [address], [place] Erythrocyte distribution width (RBC) [Ratio] 15.4 % High 11.5-15.0 [facility] Comment on above: Order Comment: No: D o not add to previous draw Performed By: #### 8 5499 #### [facility] [address] [place] [address], [facility] Hematocrit (Bld) [Volume fraction] 35.7 % Low 39.0-50.0 [facility] Comment on above: Order Comment: No: D o not add to previous draw Performed By: #### 8 5499 #### [facility] [address] [place] [address], [facility] Hemoglobin (Bld) [Mass/Vol] 10.3 g/dL Low 13.0-17.0 [facility] Comment on above: Order Comment: No: D o not add to previous draw Performed By: #### 8 5499 #### [facility] [address] [place] [address], [facility] IMM PLATELET FRAC 0.4 % Low 0.8-6.3 [facility] Comment on above: Order Comment: No: D o not add to previous draw Performed By: #### 8 5499 #### [facility] [address] [place] [address], [facility] IMMATURE GRANS 1.1 % High 0.0-1.0 [facility] Comment on above: Order Comment: No: D o not add to previous draw Performed By: #### 8 5499 #### [facility] [address] [place] [address], [facility] Lymphocytes (Bld) [#/Vol] 0.8 10*3/uL Low 1.2-4.0 [facility] Comment on above: Order Comment: No: D o not add to previous draw Performed By: #### 8 5499 #### [facility] [address] [place] [address], [facility] Lymphocytes/100 WBC (Bld) 9.3 % Low 20.0-45.0 [facility] Comment on above: Order Comment: No: D o not add to previous draw Performed By: #### 8 5499 #### [facility] [address] [place] [address], [facility] MCH (RBC) [Entitic mass] 27.4 pg Normal 27.0-33.0 [facility] Comment on above: Order Comment: No: D o not add to previous draw Performed By: #### 8 5499 #### [facility] [address] [place] [address], [facility] MCHC (RBC) [Mass/Vol] 28.9 g/dL Low 32.0-35.0 [facility] Comment on above: Order Comment: No: D o not add to previous draw Performed By: #### 8 5499 #### [facility] [address] [facility] [place] [id number], [facility] MCV (RBC) [Entitic vol] 94.9 fL Normal 82.0-98.0 [facility] Comment on above: Order Comment: No: D o not add to previous draw Performed By: #### 8 5499 #### [facility] [address] [place] [address], [facility] Monocytes (Bld) [#/Vol] 1.1 10*3/uL High 0.1-1.0 [facility] Comment on above: Order Comment: No: D o not add to previous draw Performed By: #### 8 5499 #### [facility] [address] [place] [address], [facility] MONOS 12.9 % High 5.0-12.0 [facility] Comment on above: Order Comment: No: D o not add to previous draw Performed By: #### 8 5499 #### [facility] [address] [place] [id number], [facility] Neutrophils/100 WBC (Bld) 70.6 % Normal 40.0-72.0 [facility] Comment on above: Order Comment: No: D o not add to previous draw Performed By: #### 8 5499 #### [facility] [address] [place] [address], [place] Nucleated RBC/100 WBC (Bld) [Ratio] 0 % Normal 0-0 [facility] Comment on above: Order Comment: No: D o not add to previous draw Performed By: #### 8 5499 #### [facility] [address] [place] [address], [place] PLAT ESTIMATE Normal Normal [facility] Comment on above: Order Comment: No: D o not add to previous draw Result Comment: EDTA smear shows platelet clumping, see platelet estimate Performed By: #### 8 5499 #### [facility] [address] [place] [address], [place] RBC (Bld) [#/Vol] 3.76 10*6/uL Low 4.20-5.70 [facility] Comment on above: Order Comment: No: D o not add to previous draw Performed By: #### 8 5499 #### [facility] [address] [place] [address], [place] WBC (Bld) [#/Vol] 8.30 10*3/uL Normal 4.00-10.60 [facility] Comment on above: Order Comment: No: D o not add to previous draw Performed By: #### 8 5499 #### [facility] [address] [place] [address], [place] POC GLUCOSE LABon 07-20-2020 Glucose [Mass/Vol] 110 mg/dL High 70-100 [facility] Comment on above: Performed By: #### 5 0103 #### [facility] [address] [place] [address], [place] Glucose [Mass/Vol] 124 mg/dL High 70-100 [facility] Comment on above: Performed By: #### 5 0103 #### [facility] [address] [place] [address], [place] Glucose [Mass/Vol] 111 mg/dL High 70-100 [facility] Comment on above: Performed By: #### 5 7307, [address] #### [place] [address], [facility] PORTABLE CHEST 1 VIEWon 06-28 PORTABLE CHEST 1 VIEW [facility] Department of Radiology [address] [place] [id number] Patient Name: RASHARD LYMAN : 1960 Sex: M Age: Race: White Pt. Location: [id number] Patient Status: I Ordered Date: 07/20/2020 6:00:00 [...] unchanged Electronically signed: Manuel Saldaña. Transcribed by: [id number], User Resident: Electronically Signed by: MANUEL SALDAÑA @ 07/20/2020 09:07 AM Normal [facility] Comment on above: Order Comment: Evalu ate for Effusion BASIC METABOLIC PANELon 03- Calcium [Mass/Vol] 8.4 mg/dL Low 8.6-10.3 [facility] Comment on above: Order Comment: No: D o not add to previous draw Performed By: #### 3 1943 #### [facility] [address] [place] [address], [place] Chloride [Moles/Vol] 104 mmol/L Normal 98-107 [facility] Comment on above: Order Comment: No: D o not add to previous draw Performed By: #### 3 1943 #### [facility] [address] [place] [address], [place] CO2 [Moles/Vol] 24 mmol/L Normal 21-31 [facility] Comment on above: Order Comment: No: D o not add to previous draw Performed By: #### 3 1943 #### [facility] [address] [place] [address], [place] Creatinine [Mass/Vol] 4.15 mg/dL High 0.70-1.30 [facility] Comment on above: Order Comment: No: D o not add to previous draw Performed By: #### 3 1943 #### [facility] [address] [place] [address], [place] eGFR- 18 ml/min/1.73sq m Abnormal >60 [facility] Comment on above: Order Comment: No: D o not add to previous draw Performed By: #### 3 1943 #### [facility] [address] [place] [address], [place] eGFR- non- 15 ml/min/1.73sq m Abnormal >60 [facility] Comment on above: Order Comment: No: D o not add to previous draw Performed By: #### 3 1943 #### [facility] [address] [place] [address], [place] Glucose [Mass/Vol] 180 mg/dL High 70-100 [facility] Comment on above: Order Comment: No: D o not add to previous draw Performed By: #### 3 1943 #### [facility] [address] [place] [address], [facility] Potassium [Moles/Vol] 4.4 mmol/L Normal 3.5-5.1 [facility] Comment on above: Order Comment: No: D o not add to previous draw Performed By: #### 3 1943 #### [facility] [address] [place] [address], [place] Sodium [Moles/Vol] 135 mmol/L Low 136-145 [facility] Comment on above: Order Comment: No: D o not add to previous draw Performed By: #### 3 1943 #### [facility] [address] [place] [address], [facility] Urea nitrogen [Mass/Vol] 37 mg/dL High 7-25 [facility] Comment on above: Order Comment: No: D o not add to previous draw Performed By: #### 3 1943 #### [facility] [address] [place] [address], [facility] CBC COMPLETE BLOOD COUNTon 0 - Erythrocyte distribution width (RBC) [Ratio] 14.8 % Normal 11.5-15.0 [facility] Comment on above: Order Comment: No: D o not add to previous draw Performed By: #### 8 [id number] #### [facility] [address] [place] [address], [place] Hematocrit (Bld) [Volume fraction] 30.9 % Low 39.0-50.0 [facility] Comment on above: Order Comment: No: D o not add to previous draw Performed By: #### 8 5499 #### [facility] [address] [place] [address], [facility] Hemoglobin (Bld) [Mass/Vol] 9.0 g/dL Low 13.0-17.0 [facility] Comment on above: Order Comment: No: D o not add to previous draw Performed By: #### 8 5499 #### [facility] [address] [place] [address], [facility] MCH (RBC) [Entitic mass] 26.6 pg Low 27.0-33.0 [facility] Comment on above: Order Comment: No: D o not add to previous draw Performed By: #### 8 5499 #### [facility] [address] [place] [address], [facility] MCHC (RBC) [Mass/Vol] 29.1 g/dL Low 32.0-35.0 [facility] Comment on above: Order Comment: No: D o not add to previous draw Performed By: #### 8 5499 #### [facility] [address] [facility] [place] [address], [facility] MCV (RBC) [Entitic vol] 91.4 fL Normal 82.0-98.0 [facility] Comment on above: Order Comment: No: D o not add to previous draw Performed By: #### 8 5499 #### [facility] [address] [facility] [place] [address], [facility] Nucleated RBC/100 WBC (Bld) [Ratio] 0 % Normal 0-0 [facility] Comment on above: Order Comment: No: D o not add to previous draw Performed By: #### 8 5499 #### [facility] [address] [facility] [place] [address], [facility] PLAT CNT 279 10*3/uL Normal 150-400 [facility] Comment on above: Order Comment: No: D o not add to previous draw Performed By: #### 8 5499 #### [facility] [address] [place] [address], [facility] RBC (Bld) [#/Vol] 3.38 10*6/uL Low 4.20-5.70 [facility] Comment on above: Order Comment: No: D o not add to previous draw Performed By: #### 8 5499 #### [facility] [address] [place] [address], [facility] WBC (Bld) [#/Vol] 6.73 10*3/uL Normal 4.00-10.60 [facility] Comment on above: Order Comment: No: D o not add to previous draw Performed By: #### 8 5499 #### [facility] [address] Operative Reporton Operative Report MR#: [id number] I [facility] Pt. Name: [facility] #: [id number] Discharge Date: Birthdate: 1960 OPERATIVE REPORT DATE OF SURGERY: 07/19/2020 SURGEON: Nima Wynne MD Operative Note Medical Thoracoscopy, lysis of adhesions, pleural biopsy Procedure Date: 07/19/2020 Procedure: Medical Thoracoscopy, pleural biopsies, lysis of adhesions, and chest tube placement Preoperative Diagnosis: Loculated pleural effusion Post-operative Diagnosis: same Surgeons: Nima Wynne MD Card Hand: Davis Pham MD Type of Anesthesia: MAC [...] Wynne MD Date Trans: 07/19/2020 02:43 P/ [id number] cc: Jose Juarez D.O. [address] [facility] [address] Normal [facility] POC GLUCOSE LABon 07-19-2020 Glucose [Mass/Vol] 219 mg/dL High 70-100 [facility] Comment on above: Performed By: #### 5 1681, [address] #### [facility] [address] [place] [address], [place] Glucose [Mass/Vol] 152 mg/dL High 70-100 [facility] Comment on above: Performed By: #### 5 7307, [address] #### [facility] [address] [facility] [place] [address], [facility] Glucose [Mass/Vol] 183 mg/dL High 70-100 [facility] Comment on above: Performed By: #### 5 0103 #### [facility] [address] [facility] [place] [address], [facility] Glucose [Mass/Vol] 206 mg/dL High 70-100 [facility] Comment on above: Performed By: #### 8 5499 ####[facility] [facility] [place] [address], [facility] Glucose [Mass/Vol] 179 mg/dL High 70-100 [facility] Comment on above: Performed By: #### 5 0103 #### [facility] [address] [place] [address], [facility] PORTABLE CHEST 1 VIEWon 06-28 PORTABLE CHEST 1 VIEW [facility] Department of Radiology [address] [place] [id number] Patient Name: RASHARD LYMAN : 1960 Sex: M Age: Race: White Pt. Location: [address] [place] [address] Patient Status: I Ordered Date: 07/19/2020 2:20:00 [...] infiltration Electronically signed: Pedro Baldwin. Transcribed by: [email or web address], User Resident: PEDRO BALDWIN Electronically Signed by: PEDRO BALDWIN @ 07/19/2020 03:03 PM I personally read this/these film(s) with this resident Normal [facility] Comment on above: Order Comment: Check Chest Tube Position BASIC METABOLIC PANELon 06-28 Calcium [Mass/Vol] 8.4 mg/dL Low 8.6-10.3 [facility] Comment on above: Order Comment: No: D o not add to previous draw Performed By: #### 8 5499 #### [facility] [address] [place] [address], [place] Chloride [Moles/Vol] 105 mmol/L Normal 98-107 [facility] Comment on above: Order Comment: No: D o not add to previous draw Performed By: #### 8 5499 #### [facility] [address] [place] [address], [place] CO2 [Moles/Vol] 25 mmol/L Normal 21-31 [facility] Comment on above: Order Comment: No: D o not add to previous draw Performed By: #### 8 5499 #### [facility] [address] [place] [address], [place] Creatinine [Mass/Vol] 4.54 mg/dL High 0.70-1.30 [facility] Comment on above: Order Comment: No: D o not add to previous draw Performed By: #### 8 5499 #### [facility] [address] [place] [address], [place] eGFR- 16 ml/min/1.73sq m Abnormal >60 [facility] Comment on above: Order Comment: No: D o not add to previous draw Performed By: #### 8 5499 #### [facility] [address] [place] [address], [place] eGFR- non- 13 ml/min/1.73sq m Abnormal >60 [facility] Comment on above: Order Comment: No: D o not add to previous draw Performed By: #### 8 5499 #### [facility] [address] [place] [address], [place] Glucose [Mass/Vol] 118 mg/dL High 70-100 [facility] Comment on above: Order Comment: No: D o not add to previous draw Performed By: #### 8 5499 #### [facility] [address] [place] [address], [place] Potassium [Moles/Vol] 4.5 mmol/L Normal 3.5-5.1 [facility] Comment on above: Order Comment: No: D o not add to previous draw Performed By: #### 8 5499 #### [facility] [address] [place] [address], [place] Sodium [Moles/Vol] 137 mmol/L Normal 136-145 [facility] Comment on above: Order Comment: No: D o not add to previous draw Performed By: #### 8 5499 #### [facility] [address] Urea nitrogen [Mass/Vol] 40 mg/dL High 7-25 [facility] Comment on above: Order Comment: No: D o not add to previous draw Performed By: #### 8 5499 #### [facility] [address] [place] [address], [facility] CBC W/DIFFon 07-18-2020 ABS IMM GRANS 0.1 10*3/uL Normal 0.0-0.2 [facility] Comment on above: Order Comment: No: D o not add to previous draw Performed By: #### 8 5499 #### [facility] [address] [place] [address], [facility] ABS NEUTROPHILS 5.0 10*3/uL Normal 1.6-7.6 [facility] Comment on above: Order Comment: No: D o not add to previous draw Performed By: #### 8 5499 #### [facility] [address] [place] [address], [facility] Basophils (Bld) [#/Vol] 0.0 10*3/uL Normal 0.0-0.2 [facility] Comment on above: Order Comment: No: D o not add to previous draw Performed By: #### 8 5499 #### [facility] [address] [place] [address], [facility] Basophils/100 WBC (Bld) 0.4 % Normal 0.0-1.0 [facility] Comment on above: Order Comment: No: D o not add to previous draw Performed By: #### 8 5499 #### [facility] [address] [place] [address], [facility] Eosinophils (Bld) [#/Vol] 0.6 10*3/uL High 0.0-0.5 [facility] Comment on above: Order Comment: No: D o not add to previous draw Performed By: #### 8 5499 #### [facility] [address] [place] [address], [facility] Eosinophils/100 WBC (Bld) 6.8 % High 0.0-6.0 [facility] Comment on above: Order Comment: No: D o not add to previous draw Performed By: #### 8 5499 #### [facility] [address] [place] [address], [facility] Erythrocyte distribution width (RBC) [Ratio] 14.8 % Normal 11.5-15.0 [facility] Comment on above: Order Comment: No: D o not add to previous draw Performed By: #### 8 5499 #### [facility] [address] [facility] [place] [address], [facility] Hematocrit (Bld) [Volume fraction] 31.9 % Low 39.0-50.0 [facility] Comment on above: Order Comment: No: D o not add to previous draw Performed By: #### 8 5499 #### [facility] [address] [facility] Hemoglobin (Bld) [Mass/Vol] 9.4 g/dL Low 13.0-17.0 [facility] Comment on above: Order Comment: No: D o not add to previous draw Performed By: #### 8 5499 #### [facility] [address] [place] [address], [facility] IMMATURE GRANS 1.7 % High 0.0-1.0 [facility] Comment on above: Order Comment: No: D o not add to previous draw Performed By: #### 8 5499 #### [facility] [address] [place] [address], [facility] Lymphocytes (Bld) [#/Vol] 1.2 10*3/uL Normal 1.2-4.0 [facility] Comment on above: Order Comment: No: D o not add to previous draw Performed By: #### 8 5499 #### [facility] [address] [place] [address], [facility] Lymphocytes/100 WBC (Bld) 14.8 % Low 20.0-45.0 [facility] Comment on above: Order Comment: No: D o not add to previous draw Performed By: #### 8 5499 #### [facility] [address] [place] [id number], [facility] MCH (RBC) [Entitic mass] 26.9 pg Low 27.0-33.0 [facility] Comment on above: Order Comment: No: D o not add to previous draw Performed By: #### 8 5499 #### [facility] [address] [place] [address], [facility] MCHC (RBC) [Mass/Vol] 29.5 g/dL Low 32.0-35.0 [facility] Comment on above: Order Comment: No: D o not add to previous draw Performed By: #### 8 5499 #### [facility] [address] [place] [address], [facility] MCV (RBC) [Entitic vol] 91.1 fL Normal 82.0-98.0 [facility] Comment on above: Order Comment: No: D o not add to previous draw Performed By: #### 8 5499 #### [facility] [address] [place] [address], [facility] Monocytes (Bld) [#/Vol] 1.1 10*3/uL High 0.1-1.0 [facility] Comment on above: Order Comment: No: D o not add to previous draw Performed By: #### 8 5499 #### [facility] [address] [place] [address], [facility] MONOS 13.4 % High 5.0-12.0 [facility] Comment on above: Order Comment: No: D o not add to previous draw Performed By: #### 8 5499 #### [facility] [address] [place] [address], [facility] Neutrophils/100 WBC (Bld) 62.9 % Normal 40.0-72.0 [facility] Comment on above: Order Comment: No: D o not add to previous draw Performed By: #### 8 5499 #### [facility] [address] [place] [address], [facility] Nucleated RBC/100 WBC (Bld) [Ratio] 0 % Normal 0-0 [facility] Comment on above: Order Comment: No: D o not add to previous draw Performed By: #### 8 5499 #### [facility] [address] [place] [address], [facility] PLAT CNT 296 10*3/uL Normal 150-400 [facility] Comment on above: Order Comment: No: D o not add to previous draw Performed By: #### 8 5499 #### [facility] [address] [place] [address], [facility] RBC (Bld) [#/Vol] 3.50 10*6/uL Low 4.20-5.70 [facility] Comment on above: Order Comment: No: D o not add to previous draw Performed By: #### 8 5499 #### [facility] [address] [place] [address], [facility] WBC (Bld) [#/Vol] 8.03 10*3/uL Normal 4.00-10.60 [facility] Comment on above: Order Comment: No: D o not add to previous draw Performed By: #### 8 5499 #### [facility] [address] [place] [address], [facility] POC GLUCOSE LABon 07-18-2020 Glucose [Mass/Vol] 192 mg/dL High 70-100 [facility] Comment on above: Performed By: #### 5 7307, [address] #### [facility] [address] [place] [address], [place] Glucose [Mass/Vol] 153 mg/dL High 70-100 [facility] Comment on above: Performed By: #### 5 7307, 485[address] #### [facility] [address] [place] [address], [place] Glucose [Mass/Vol] 80 mg/dL Normal 70-100 [facility] Comment on above: Performed By: #### 5 7307, 13227 #### [facility] [address] [place] [address], [place] Glucose [Mass/Vol] 48 mg/dL Critically low 70-100 [facility] Comment on above: Order Comment: Left Peural Effusion Performed By: #### 8 5499 ####[facility] [place] [address], [place] Glucose [Mass/Vol] 120 mg/dL High 70-100 [facility] Comment on above: Performed By: #### 5 0103 #### [facility] [address] [place] [address], [place] Glucose [Mass/Vol] 112 mg/dL High 70-100 [facility] Comment on above: Performed By: #### 5 7307, 41384 #### [facility] [address] [place] [address], [place] POC SARS COV2 ANTIGEN NEGATI VEon 07-18-2020 POC SARS COV2 ANTIGEN NEG CANCELED Normal NEGATIVE [facility] Comment on above: Result Comment: The released value NEGATIVE was canceled by [email or web address] on 07/19/2020 07:11 Performed By: #### 3 1944 #### [facility] [address] [place] [address], [place] POC SARS COV2 ANTIGEN NEG Negative Normal NEGATIVE [facility] Comment on above: Result Comment: [...] Accreditation. Performed By: #### 8 5499 #### [facility] [address] [place] [address], [facility] BASIC METABOLIC PANELon 03-2 Calcium [Mass/Vol] 8.2 mg/dL Low 8.6-10.3 [facility] Comment on above: Order Comment: No: D o not add to previous draw Performed By: #### 3 1943 #### [facility] [address] [place] [address], [facility] Chloride [Moles/Vol] 101 mmol/L Normal 98-107 [facility] Comment on above: Order Comment: No: D o not add to previous draw Performed By: #### 3 1943 #### [facility] [address] [place] [address], [facility] CO2 [Moles/Vol] 25 mmol/L Normal 21-31 [facility] Comment on above: Order Comment: No: D o not add to previous draw Performed By: #### 3 1943 #### [facility] [address] [place] [id number], [facility] Creatinine [Mass/Vol] 3.64 mg/dL High 0.70-1.30 [facility] Comment on above: Order Comment: No: D o not add to previous draw Performed By: #### 3 1943 #### [facility] [address] [place] [address], [place] eGFR- 21 ml/min/1.73sq m Abnormal >60 [facility] Comment on above: Order Comment: No: D o not add to previous draw Performed By: #### 3 1943 #### [facility] [address] [place] [address], [place] eGFR- non- 17 ml/min/1.73sq m Abnormal >60 [facility] Comment on above: Order Comment: No: D o not add to previous draw Performed By: #### 3 1943 #### [facility] [address] [place] [address], [place] Glucose [Mass/Vol] 124 mg/dL High 70-100 [facility] Comment on above: Order Comment: No: D o not add to previous draw Performed By: #### 3 1943 #### [facility] [address] [place] [address], [place] Potassium [Moles/Vol] 4.3 mmol/L Normal 3.5-5.1 [facility] Comment on above: Order Comment: No: D o not add to previous draw Performed By: #### 3 1943 #### [facility] [address] [place] [address], [place] Sodium [Moles/Vol] 134 mmol/L Low 136-145 [facility] Comment on above: Order Comment: No: D o not add to previous draw Performed By: #### 3 1943 #### [facility] [address] [place] [address], [place] Urea nitrogen [Mass/Vol] 36 mg/dL High 7-25 [facility] Comment on above: Order Comment: No: D o not add to previous draw Performed By: #### 3 1943 #### [facility] [address] [place] [address], [facility] CBC W/DIFFon 07-17-2020 ABS IMM GRANS 0.2 10*3/uL Normal 0.0-0.2 [facility] Comment on above: Order Comment: No: D o not add to previous draw Performed By: #### 8 5499 #### [facility] [address] [facility] [place] [address], [facility] ABS NEUTROPHILS 5.8 10*3/uL Normal 1.6-7.6 [facility] Comment on above: Order Comment: No: D o not add to previous draw Performed By: #### 8 5499 #### [facility] [address] [facility] [place] [address], [facility] Basophils (Bld) [#/Vol] 0.1 10*3/uL Normal 0.0-0.2 [facility] Comment on above: Order Comment: No: D o not add to previous draw Performed By: #### 8 5499 #### [facility] [address] [facility] [place] [address], [facility] Basophils/100 WBC (Bld) 0.6 % Normal 0.0-1.0 [facility] Comment on above: Order Comment: No: D o not add to previous draw Performed By: #### 8 5499 #### [facility] [address] [facility] [place] [address], [facility] Eosinophils (Bld) [#/Vol] 0.6 10*3/uL High 0.0-0.5 [facility] Comment on above: Order Comment: No: D o not add to previous draw Performed By: #### 8 5499 #### [facility] [address] [facility] [place] [address], [facility] Eosinophils/100 WBC (Bld) 7.0 % High 0.0-6.0 [facility] Comment on above: Order Comment: No: D o not add to previous draw Performed By: #### 8 5499 #### [facility] [address] Erythrocyte distribution width (RBC) [Ratio] 14.8 % Normal 11.5-15.0 [facility] Comment on above: Order Comment: No: D o not add to previous draw Performed By: #### 8 5499 #### [facility] [address] [place] [address], [facility] Hematocrit (Bld) [Volume fraction] 30.0 % Low 39.0-50.0 [facility] Comment on above: Order Comment: No: D o not add to previous draw Performed By: #### 8 5499 #### [facility] [address] [place] [address], [facility] Hemoglobin (Bld) [Mass/Vol] 9.2 g/dL Low 13.0-17.0 [facility] Comment on above: Order Comment: No: D o not add to previous draw Performed By: #### 8 5499 #### [facility] [address] [place] [address], [facility] IMMATURE GRANS 1.7 % High 0.0-1.0 [facility] Comment on above: Order Comment: No: D o not add to previous draw Performed By: #### 8 5499 #### [facility] [address] [facility] [place] [address], [facility] Lymphocytes (Bld) [#/Vol] 1.3 10*3/uL Normal 1.2-4.0 [facility] Comment on above: Order Comment: No: D o not add to previous draw Performed By: #### 8 5499 #### [facility] [address] [place] [id number], [facility] Lymphocytes/100 WBC (Bld) 14.3 % Low 20.0-45.0 [facility] Comment on above: Order Comment: No: D o not add to previous draw Performed By: #### 8 5499 #### [facility] [address] [place] [address], [facility] MCH (RBC) [Entitic mass] 27.3 pg Normal 27.0-33.0 [facility] Comment on above: Order Comment: No: D o not add to previous draw Performed By: #### 8 5499 #### [facility] [address] [place] [address], [facility] MCHC (RBC) [Mass/Vol] 30.7 g/dL Low 32.0-35.0 [facility] Comment on above: Order Comment: No: D o not add to previous draw Performed By: #### 8 5499 #### [facility] [facility] [address] [place] [address], [facility] MCV (RBC) [Entitic vol] 89.0 fL Normal 82.0-98.0 [facility] Comment on above: Order Comment: No: D o not add to previous draw Performed By: #### 8 [id number] #### [facility] [address] [place] [id number], [facility] Monocytes (Bld) [#/Vol] 1.0 10*3/uL Normal 0.1-1.0 [facility] Comment on above: Order Comment: No: D o not add to previous draw Performed By: #### 8 5499 #### [facility] [address] [place] [address], [facility] MONOS 10.9 % Normal 5.0-12.0 [facility] Comment on above: Order Comment: No: D o not add to previous draw Performed By: #### 8 5499 #### [facility] [address] [place] [address], [facility] Neutrophils/100 WBC (Bld) 65.5 % Normal 40.0-72.0 [facility] Comment on above: Order Comment: No: D o not add to previous draw Performed By: #### 8 [id number] #### [facility] [address] [place] [address], [facility] Nucleated RBC/100 WBC (Bld) [Ratio] 0 % Normal 0-0 [facility] Comment on above: Order Comment: No: D o not add to previous draw Performed By: #### 8 [id number] #### [facility] [address] [place] [address], [place] PLAT CNT 293 10*3/uL Normal 150-400 [facility] Comment on above: Order Comment: No: D o not add to previous draw Performed By: #### 8 5499 #### [facility] [address] [place] [address], [place] RBC (Bld) [#/Vol] 3.37 10*6/uL Low 4.20-5.70 [facility] Comment on above: Order Comment: No: D o not add to previous draw Performed By: #### 8 5499 #### [facility] [address] [place] [address], [place] WBC (Bld) [#/Vol] 8.86 10*3/uL Normal 4.00-10.60 [facility] Comment on above: Order Comment: No: D o not add to previous draw Performed By: #### 8 [id number] #### [facility] [address] [place] [address], [place] POC GLUCOSE LABon 07-17-2020 Glucose [Mass/Vol] 101 mg/dL High 70-100 [facility] Comment on above: Performed By: #### 5 7307, 73598 #### [facility] [address] [place] [address], [place] Glucose [Mass/Vol] 76 mg/dL Normal 70-100 [facility] Comment on above: Performed By: #### 5 7307, 40000 #### [facility] [address] [place] [address], [place] Glucose [Mass/Vol] 75 mg/dL Normal 70-100 [facility] Comment on above: Performed By: #### 8 5499 ####[facility] [place] [address], [place] Glucose [Mass/Vol] 198 mg/dL High 70-100 [facility] Comment on above: Performed By: #### 8 5499 ####[facility] [place] [address], [place] Glucose [Mass/Vol] 205 mg/dL High 70-100 [facility] Comment on above: Performed By: #### 3 0318 #### [facility] [address] [place] [address], [place] Glucose [Mass/Vol] 187 mg/dL High 70-100 [facility] Comment on above: Performed By: #### 5 7307, 49412 #### [facility] [address] [place] [address], [place] Glucose [Mass/Vol] 131 mg/dL High 70-100 [facility] Comment on above: Performed By: #### 8 5499 #### [facility] [address] [place] [address], [place] Glucose [Mass/Vol] 75 mg/dL Normal 70-100 [facility] Comment on above: Performed By: #### 5 0103 #### [facility] [address] [place] [address], [place] Glucose [Mass/Vol] 69 mg/dL Low 70-100 [facility] Comment on above: Performed By: #### 8 5499 ####[facility] [place] [address], [place] BASIC METABOLIC PANELon 03-2 0-2020 Calcium [Mass/Vol] 8.4 mg/dL Low 8.6-10.3 [facility] Comment on above: Order Comment: No: D o not add to previous draw Performed By: #### 3 1944 #### [facility] [address] [place] [address], [place] Chloride [Moles/Vol] 105 mmol/L Normal 98-107 [facility] Comment on above: Order Comment: No: D o not add to previous draw Performed By: #### 3 1943 #### [facility] [address] [place] [address], [place] CO2 [Moles/Vol] 24 mmol/L Normal 21-31 [facility] Comment on above: Order Comment: No: D o not add to previous draw Performed By: #### 3 1943 #### [facility] [address] [place] [address], [place] Creatinine [Mass/Vol] 4.14 mg/dL High 0.70-1.30 [facility] Comment on above: Order Comment: No: D o not add to previous draw Performed By: #### 3 1943 #### [facility] [address] [place] [address], [place] eGFR- 18 ml/min/1.73sq m Abnormal >60 [facility] Comment on above: Order Comment: No: D o not add to previous draw Performed By: #### 3 1943 #### [facility] [address] [place] [address], [place] eGFR- non- 15 ml/min/1.73sq m Abnormal >60 [facility] Comment on above: Order Comment: No: D o not add to previous draw Performed By: #### 3 1943 #### [facility] [address] [place] [address], [place] Glucose [Mass/Vol] 127 mg/dL High 70-100 [facility] Comment on above: Order Comment: No: D o not add to previous draw Performed By: #### 3 1943 #### [facility] [address] [place] [address], [place] Potassium [Moles/Vol] 4.0 mmol/L Normal 3.5-5.1 [facility] Comment on above: Order Comment: No: D o not add to previous draw Performed By: #### 3 1943 #### [facility] [address] [place] [address], [facility] Sodium [Moles/Vol] 136 mmol/L Normal 136-145 [facility] Comment on above: Order Comment: No: D o not add to previous draw Performed By: #### 3 1943 #### [facility] [address] [place] [address], [facility] Urea nitrogen [Mass/Vol] 35 mg/dL High 7-25 [facility] Comment on above: Order Comment: No: D o not add to previous draw Performed By: #### 3 1943 #### [facility] [address] [place] [address], [facility] CBC COMPLETE BLOOD COUNTon 0 - Erythrocyte distribution width (RBC) [Ratio] 14.6 % Normal 11.5-15.0 [facility] Comment on above: Order Comment: No: D o not add to previous draw Performed By: #### 8 [id number] #### [facility] [address] [place] [address], [facility] Hematocrit (Bld) [Volume fraction] 31.8 % Low 39.0-50.0 [facility] Comment on above: Order Comment: No: D o not add to previous draw Performed By: #### 8 5499 #### [facility] [address] [place] [address], [facility] Hemoglobin (Bld) [Mass/Vol] 9.7 g/dL Low 13.0-17.0 [facility] Comment on above: Order Comment: No: D o not add to previous draw Performed By: #### 8 5499 #### [facility] [address] [place] [address], [place] MCH (RBC) [Entitic mass] 27.2 pg Normal 27.0-33.0 [facility] Comment on above: Order Comment: No: D o not add to previous draw Performed By: #### 8 5499 #### [facility] [address] [place] [address], [facility] MCHC (RBC) [Mass/Vol] 30.5 g/dL Low 32.0-35.0 [facility] Comment on above: Order Comment: No: D o not add to previous draw Performed By: #### 8 5499 #### [facility] [address] [place] [address], [facility] MCV (RBC) [Entitic vol] 89.3 fL Normal 82.0-98.0 [facility] Comment on above: Order Comment: No: D o not add to previous draw Performed By: #### 8 5499 #### [facility] [address] [place] [address], [facility] Nucleated RBC/100 WBC (Bld) [Ratio] 0 % Normal 0-0 [facility] Comment on above: Order Comment: No: D o not add to previous draw Performed By: #### 8 5499 #### [facility] [address] [place] [address], [facility] PLAT CNT 321 10*3/uL Normal 150-400 [facility] Comment on above: Order Comment: No: D o not add to previous draw Performed By: #### 8 5499 #### [facility] [address] [place] [address], [facility] RBC (Bld) [#/Vol] 3.56 10*6/uL Low 4.20-5.70 [facility] Comment on above: Order Comment: No: D o not add to previous draw Performed By: #### 8 5499 #### [facility] [address] [place] [address], [place] WBC (Bld) [#/Vol] 8.88 10*3/uL Normal 4.00-10.60 [facility] Comment on above: Order Comment: No: D o not add to previous draw Performed By: #### 8 5499 #### [facility] [address] [place] [address], [place] POC GLUCOSE LABon 07-16-2020 Glucose [Mass/Vol] 94 mg/dL Normal 70-100 [facility] Comment on above: Performed By: #### 5 0103 #### [facility] [address] [place] [address], [place] Glucose [Mass/Vol] 62 mg/dL Low 70-100 [facility] Comment on above: Performed By: #### 5 7307, 76877 #### [facility] [address] [place] [address], [place] Glucose [Mass/Vol] 80 mg/dL Normal 70-100 [facility] Comment on above: Performed By: #### 5 7307, 98587 #### [facility] [address] [place] [address], [place] Glucose [Mass/Vol] 99 mg/dL Normal 70-100 [facility] Comment on above: Performed By: #### 8 5499 ####[facility] [place] [address], [place] Glucose [Mass/Vol] 203 mg/dL High 70-100 [facility] Comment on above: Performed By: #### 8 5499 ####[facility] [place] [address], [place] Glucose [Mass/Vol] 151 mg/dL High 70-100 [facility] Comment on above: Performed By: #### 5 7307, 94231 #### [facility] [address] [place] [address], [place] ANAon 07-15-2020 KILLIAN SCREEN <1:40 Normal <1:40,1:40 [facility] Comment on above: Order Comment: No: D o not add to previous draw Performed By: #### 8 5499 #### [facility] [address] [place] [address], [facility] ANCA IGG WITH REFLEX [id number] on 07-15-2020 ANCA <1:20 Normal <1:20 [facility] Comment on above: Order Comment: [...] collagen vascular disease or arthritis. Performed By: [employer] [address] [place] [id number] [employer] Machine Operator: Emi Campbell MD BASIC METABOLIC PANELon 06-27 Calcium [Mass/Vol] 8.5 mg/dL Low 8.6-10.3 [facility] Comment on above: Order Comment: No: D o not add to previous draw Performed By: #### 8 5499 #### [facility] [address] [place] [address], [place] Chloride [Moles/Vol] 103 mmol/L Normal 98-107 [facility] Comment on above: Order Comment: No: D o not add to previous draw Performed By: #### 8 5499 #### [facility] [address] [place] [address], [place] CO2 [Moles/Vol] 23 mmol/L Normal 21-31 [facility] Comment on above: Order Comment: No: D o not add to previous draw Performed By: #### 8 5499 #### [facility] [address] [place] [address], [place] Creatinine [Mass/Vol] 4.38 mg/dL High 0.70-1.30 [facility] Comment on above: Order Comment: No: D o not add to previous draw Performed By: #### 8 5499 #### [facility] [address] [place] [address], [place] eGFR- 17 ml/min/1.73sq m Abnormal >60 [facility] Comment on above: Order Comment: No: D o not add to previous draw Performed By: #### 8 5499 #### [facility] [address] [place] [address], [place] eGFR- non- 14 ml/min/1.73sq m Abnormal >60 [facility] Comment on above: Order Comment: No: D o not add to previous draw Performed By: #### 8 5499 #### [facility] [address] [place] [address], [place] Glucose [Mass/Vol] 154 mg/dL High 70-100 [facility] Comment on above: Order Comment: No: D o not add to previous draw Performed By: #### 8 5499 #### [facility] [address] [place] [address], [place] Potassium [Moles/Vol] 4.5 mmol/L Normal 3.5-5.1 [facility] Comment on above: Order Comment: No: D o not add to previous draw Performed By: #### 8 5499 #### [facility] [address] [place] [address], [place] Sodium [Moles/Vol] 135 mmol/L Low 136-145 [facility] Comment on above: Order Comment: No: D o not add to previous draw Performed By: #### 8 5499 #### [facility] [address] [place] [address], [place] Urea nitrogen [Mass/Vol] 32 mg/dL High 7-25 [facility] Comment on above: Order Comment: No: D o not add to previous draw Performed By: #### 8 5499 #### [facility] [address] [place] [address], [place] C REACTIVE PROTEINon 021 CRP [Mass/Vol] 138.0 mg/L High 0.0-7.0 [facility] Comment on above: Order Comment: FROM [id number] Performed By: #### 8 5499 #### [facility] [address] CBC W/DIFFon 07-15-2020 ABS IMM GRANS 0.1 10*3/uL Normal 0.0-0.2 [facility] Comment on above: Performed By: #### 5 0103 #### [facility] [address] [place] [address], [facility] ABS NEUTROPHILS 7.3 10*3/uL Normal 1.6-7.6 [facility] Comment on above: Performed By: #### 5 0103 #### [facility] [address] [place] [address], [facility] Basophils (Bld) [#/Vol] 0.0 10*3/uL Normal 0.0-0.2 [facility] Comment on above: Performed By: #### 5 0103 #### [facility] [address] [place] [address], [facility] Basophils/100 WBC (Bld) 0.3 % Normal 0.0-1.0 [facility] Comment on above: Performed By: #### 5 0103 #### [facility] [address] [place] [address], [facility] Eosinophils (Bld) [#/Vol] 0.5 10*3/uL Normal 0.0-0.5 [facility] Comment on above: Performed By: #### 5 0103 #### [facility] [address] [place] [address], [facility] Eosinophils/100 WBC (Bld) 5.1 % Normal 0.0-6.0 [facility] Comment on above: Performed By: #### 5 0103 #### [facility] [address] [place] [address], [place] Erythrocyte distribution width (RBC) [Ratio] 14.9 % Normal 11.5-15.0 [facility] Comment on above: Performed By: #### 5 0103 #### [facility] [address] Hematocrit (Bld) [Volume fraction] 33.0 % Low 39.0-50.0 [facility] Comment on above: Performed By: #### 5 0103 #### [facility] [address] Hemoglobin (Bld) [Mass/Vol] 9.9 g/dL Low 13.0-17.0 [facility] Comment on above: Performed By: #### 5 0103 #### [facility] [address] IMMATURE GRANS 1.4 % High 0.0-1.0 [facility] Comment on above: Performed By: #### 5 0103 #### [facility] [address] Lymphocytes (Bld) [#/Vol] 1.1 10*3/uL Low 1.2-4.0 [facility] Comment on above: Performed By: #### 5 3 #### [facility] [address] Lymphocytes/100 WBC (Bld) 11.0 % Low 20.0-45.0 [facility] Comment on above: Performed By: #### 5 0103 #### [facility] [address] [place] [address], [facility] MCH (RBC) [Entitic mass] 27.0 pg Normal 27.0-33.0 [facility] Comment on above: Performed By: #### 5 3 #### [facility] [address] [place] [address], [facility] MCHC (RBC) [Mass/Vol] 30.0 g/dL Low 32.0-35.0 [facility] Comment on above: Performed By: #### 5 0103 #### [facility] [address] [facility] [place] [address], [facility] MCV (RBC) [Entitic vol] 90.2 fL Normal 82.0-98.0 [facility] Comment on above: Performed By: #### 5 0103 #### [facility] [address] [place] [address], [facility] Monocytes (Bld) [#/Vol] 1.1 10*3/uL High 0.1-1.0 [facility] Comment on above: Performed By: #### 5 0103 #### [facility] [address] [place] [address], [facility] MONOS 10.9 % Normal 5.0-12.0 [facility] Comment on above: Performed By: #### 5 0103 #### [facility] [address] [place] [address], [facility] Neutrophils/100 WBC (Bld) 71.3 % Normal 40.0-72.0 [facility] Comment on above: Performed By: #### 5 3 #### [facility] [address] [place] [address], [facility] Nucleated RBC/100 WBC (Bld) [Ratio] 0 % Normal 0-0 [facility] Comment on above: Performed By: #### 5 0103 #### [facility] [address] [facility] [place] [address], [facility] PLAT CNT 317 10*3/uL Normal 150-400 [facility] Comment on above: Performed By: #### 5 3 #### [facility] [address] [facility] [place] [address], [facility] RBC (Bld) [#/Vol] 3.66 10*6/uL Low 4.20-5.70 [facility] Comment on above: Performed By: #### 5 0103 #### [facility] [address] [place] [address], [facility] WBC (Bld) [#/Vol] 10.23 10*3/uL Normal 4.00-10.60 [facility] Comment on above: Performed By: #### 5 0103 #### [facility] [address] [place] [address], [facility] COMPLEMENT 3on 07-15-2020 COMPLEMENT 3 108 mg/dL Normal 79-152 [facility] Comment on above: Order Comment: No: D o not add to previous draw Performed By: #### 8 5499 #### [facility] [address] [place] [address], [facility] COMPLEMENT 4on 07-15-2020 COMPLEMENT 4 31 mg/dL Normal 16-38 [facility] Comment on above: Order Comment: No: D o not add to previous draw Performed By: #### 8 5499 #### [facility] [address] GLOMR BASMT MEMBRon 07-16-19 21 GLOMR BASMT MBRN Negative Abnormal NEGATIVE [facility] Comment on above: Order Comment: No: D o not add to previous draw Result Comment: Note : The performance characteristics of this test were validated by the [facility] Immunology laboratory. It has not been cleared or approved by the U.S. Food and Drug Administration. The results are not intended to be used as the sole means for clinical diagnosis or patient management decisions. [facility]'s Immunology lab is authorized under CLIA to perform high-complexity testing. Performed By: #### 8 5499 #### [facility] [address] [place] [address], [facility] POC GLUCOSE LABon 07-15-2020 Glucose [Mass/Vol] 107 mg/dL High 70-100 [facility] Comment on above: Performed By: #### 5 7307, 90860 #### [facility] [address] [facility] [place] [address], [facility] Glucose [Mass/Vol] 84 mg/dL Normal 70-100 [facility] Comment on above: Performed By: #### 5 0103 #### [facility] [address] [facility] [place] [address], [facility] Glucose [Mass/Vol] 164 mg/dL High 70-100 [facility] Comment on above: Performed By: #### 8 5499 ####[facility] [facility] [place] [address], [place] Glucose [Mass/Vol] 141 mg/dL High 70-100 [facility] Comment on above: Performed By: #### 5 7307, 38023 #### [facility] [address] [facility] [place] [address], [facility] PORTABLE CHEST 1 VIEWon 06-27 PORTABLE CHEST 1 VIEW [facility] Department of Radiology [address] [place] [id number] Patient Name: RASHARD LYMAN : 1960 Sex: M Age: Race: White Pt. Location: [id number] Patient Status: I Ordered Date: 07/15/2020 7:00:00 [...] exam. Electronically signed: Nir Swartz. Transcribed by: [email or web address], User Resident: Electronically Signed by: NIR SWARTZ @ 07/15/2020 07:34 AM Normal [facility] Comment on above: Order Comment: evalu ate for Effusion *AFB CULTUREon 07-14-2020 *AFB CULTURE Clinical Report: (D) Specimen/Source: FLUID/PLEURAL FLUID Collected: 07/14/2020 13:03 Status: Final Last Updated: 08/26/2020 08:52 (1) Left Peural Effusion AFB (Final) No Acid Fast Bacilli Seen CULT RES (Final) No growth after 42 days of incubation Normal [facility] Comment on above: Order Comment: Left Peural Effusion Performed By: #### 8 5499 #### [facility] [address] *ANAEROBIC CULTUREon 021 *ANAEROBIC CULTURE Clinical Report: (D) Specimen/Source: FLUID/PLEURAL FLUID Collected: 07/14/2020 13:03 Status: Final Last Updated: 07/19/2020 08:08 (1) Left Peural Effusion CULT RES (Final) No Anaerobes Isolated 5 Days Normal [facility] Comment on above: Order Comment: Left Peural Effusion Performed By: #### 8 5499 #### [facility] [address] [place] [address], [facility] *BODY FLUID CULTUREon 2020 *BODY FLUID CULTURE Clinical Report: (D) Specimen/Source: FLUID/PLEURAL FLUID Collected: 07/14/2020 13:03 Status: Final Last Updated: 07/19/2020 07:53 (1) Left Peural Effusion GRAM (Final) Polys PRESENT No Bacteria Seen CYTOSPUN (Final) This Gram Stain was done on a cytocentrifuged specimen CULT RES (Final) No Growth Day 5 Normal [facility] Comment on above: Order Comment: Left Peural Effusion Performed By: #### 3 0318 #### [facility] [address] *FUNGAL CULTUREon 07-14-2020 *FUNGAL CULTURE Clinical Report: (D) Specimen/Source: FLUID/PLEURAL FLUID Collected: 07/14/2020 13:03 Status: Final Last Updated: 08/15/2020 08:41 (1) Left Peural Effusion FS (Final) No Yeast or Fungal Elements Seen CULT RES (Final) Culture negative for fungus Normal [facility] Comment on above: Order Comment: Left Peural Effusion Performed By: #### 8 [id number] #### [facility] [address] *VIRAL NON RESPIRATORY CULTU REon 07-14-2020 Bacteria identified Cx Nom (Unsp spec) Normal [facility] Comment on above: Order Comment: [...] Linked Virus Inducible S. [place] Normal [facility] Comment on above: Order Comment: Left Peural Effusion Result Comment: Test Performed by [address] [address] - Released 07/20/2020 14:10 Result changed by IF on 07/17/2020 14:17. The previous value was Test Performed by [address] [address] [phone].. Result changed by IF on 07/18/2020 12:17. The previous value was Test Performed by [address] [address] [phone].. Result changed by IF on 07/20/2020 14:10. The previous value was Test Performed by [address] [address] [phone].. REPORT STATUS FINAL 07/20/2020 Normal [facility] Comment on above: Order Comment: Left Peural Effusion Result Comment: Resu lt changed by IF on 07/20/2020 14:10. The previous value was Preliminary. APTTon 07-14-2020 aPTT Coag (Bld) [Time] 41.7 s High 25.0-35.0 [facility] Comment on above: Order Comment: [...] PURPOSE. Performed By: #### 8 5499 #### [facility] [address] [place] [address], [facility] aPTT Coag (Bld) [Time] 44.9 s High 25.0-35.0 [facility] Comment on above: Order Comment: [...] THIS PURPOSE. Performed By: #### 5 7307, 99540 #### [facility] [address] [place] [address], [facility] BASIC METABOLIC PANELon 06-27 Calcium [Mass/Vol] 8.6 mg/dL Normal 8.6-10.3 [facility] Comment on above: Order Comment: No: D o not add to previous draw Performed By: #### 8 5499 #### [facility] [address] [place] [address], [facility] Chloride [Moles/Vol] 102 mmol/L Normal 98-107 [facility] Comment on above: Order Comment: No: D o not add to previous draw Performed By: #### 8 5499 #### [facility] [address] [place] [id number], [facility] CO2 [Moles/Vol] 24 mmol/L Normal 21-31 [facility] Comment on above: Order Comment: No: D o not add to previous draw Performed By: #### 8 5499 #### [facility] [address] [place] [id number], [facility] Creatinine [Mass/Vol] 3.44 mg/dL High 0.70-1.30 [facility] Comment on above: Order Comment: No: D o not add to previous draw Performed By: #### 8 [id number] #### [facility] [address] [place] [address], [facility] eGFR- 22 ml/min/1.73sq m Abnormal >60 [facility] Comment on above: Order Comment: No: D o not add to previous draw Performed By: #### 8 [id number] #### [facility] [address] [place] [address], [facility] eGFR- non- 18 ml/min/1.73sq m Abnormal >60 [facility] Comment on above: Order Comment: No: D o not add to previous draw Performed By: #### 8 [id number] #### [facility] [address] [place] [address], [facility] Glucose [Mass/Vol] 355 mg/dL High 70-100 [facility] Comment on above: Order Comment: No: D o not add to previous draw Performed By: #### 8 [id number] #### [facility] [address] [place] [address], [facility] Potassium [Moles/Vol] 4.6 mmol/L Normal 3.5-5.1 [facility] Comment on above: Order Comment: No: D o not add to previous draw Performed By: #### 8 [id number] #### [facility] [address] [place] [address], [facility] Sodium [Moles/Vol] 133 mmol/L Low 136-145 [facility] Comment on above: Order Comment: No: D o not add to previous draw Performed By: #### 8 [id number] #### [facility] [address] [place] [address], [facility] Urea nitrogen [Mass/Vol] 27 mg/dL High 7-25 [facility] Comment on above: Order Comment: No: D o not add to previous draw Performed By: #### 8 [id number] #### [facility] [address] [place] [address], [facility] BNP (B-TYPE NATRIURETIC PEPT CIERAR)on 07-14-2020 Natriuretic peptide B (Bld) [Mass/Vol] 19 pg/mL Normal 0-100 [facility] Comment on above: Order Comment: Left Peural Effusion Result Comment: Give n the appropriate clinical setting a BNP result of >100 pg/mL indicates congestive heart failure. Performed By: #### 3 0318 #### [facility] [address] CBC COMPLETE BLOOD COUNTon 0 - Erythrocyte distribution width (RBC) [Ratio] 14.6 % Normal 11.5-15.0 [facility] Comment on above: Order Comment: No: D o not add to previous draw Performed By: #### 8 [id number] #### [facility] [address] [place] [address], [facility] Hematocrit (Bld) [Volume fraction] 35.3 % Low 39.0-50.0 [facility] Comment on above: Order Comment: No: D o not add to previous draw Performed By: #### 8 [id number] #### [facility] [address] [facility] [place] [address], [facility] Hemoglobin (Bld) [Mass/Vol] 11.1 g/dL Low 13.0-17.0 [facility] Comment on above: Order Comment: No: D o not add to previous draw Performed By: #### 8 [id number] #### [facility] [address] [place] [address], [facility] MCH (RBC) [Entitic mass] 27.5 pg Normal 27.0-33.0 [facility] Comment on above: Order Comment: No: D o not add to previous draw Performed By: #### 8 [id number] #### [facility] [address] [place] [address], [facility] MCHC (RBC) [Mass/Vol] 31.4 g/dL Low 32.0-35.0 [facility] Comment on above: Order Comment: No: D o not add to previous draw Performed By: #### 8 [id number] #### [facility] [address] [place] [address], [facility] MCV (RBC) [Entitic vol] 87.6 fL Normal 82.0-98.0 [facility] Comment on above: Order Comment: No: D o not add to previous draw Performed By: #### 8 [id number] #### [facility] [address] [facility] [place] [address], [facility] Nucleated RBC/100 WBC (Bld) [Ratio] 0 % Normal 0-0 [facility] Comment on above: Order Comment: No: D o not add to previous draw Performed By: #### 8 [id number] #### [facility] [address] [place] [address], [facility] PLAT CNT 325 10*3/uL Normal 150-400 [facility] Comment on above: Order Comment: No: D o not add to previous draw Performed By: #### 8 [id number] #### [facility] [address] [facility] [place] [address], [facility] RBC (Bld) [#/Vol] 4.03 10*6/uL Low 4.20-5.70 [facility] Comment on above: Order Comment: No: D o not add to previous draw Performed By: #### 8 [id number] #### [facility] [address] [facility] [place] [address], [facility] WBC (Bld) [#/Vol] 12.59 10*3/uL High 4.00-10.60 [facility] Comment on above: Order Comment: No: D o not add to previous draw Performed By: #### 8 [id number] #### [facility] [address] [facility] [place] [address], [facility] CBC W/DIFFon 07-14-2020 ABS IMM GRANS 0.2 10*3/uL Normal 0.0-0.2 [facility] Comment on above: Order Comment: No: D o not add to previous draw Performed By: #### 8 [id number] #### [facility] [address] [facility] [place] [address], [facility] ABS NEUTROPHILS 7.9 10*3/uL High 1.6-7.6 [facility] Comment on above: Order Comment: No: D o not add to previous draw Performed By: #### 8 [id number] #### [facility] [address] [place] [address], [facility] Basophils (Bld) [#/Vol] 0.1 10*3/uL Normal 0.0-0.2 [facility] Comment on above: Order Comment: No: D o not add to previous draw Performed By: #### 8 [id number] #### [facility] [address] [place] [address], [facility] Basophils/100 WBC (Bld) 0.5 % Normal 0.0-1.0 [facility] Comment on above: Order Comment: No: D o not add to previous draw Performed By: #### 8 [id number] #### [facility] [address] [place] [address], [facility] Eosinophils (Bld) [#/Vol] 0.5 10*3/uL Normal 0.0-0.5 [facility] Comment on above: Order Comment: No: D o not add to previous draw Performed By: #### 8 [id number] #### [facility] [address] [place] [address], [facility] Eosinophils/100 WBC (Bld) 4.3 % Normal 0.0-6.0 [facility] Comment on above: Order Comment: No: D o not add to previous draw Performed By: #### 8 [id number] #### [facility] [address] [place] [address], [facility] Erythrocyte distribution width (RBC) [Ratio] 14.6 % Normal 11.5-15.0 [facility] Comment on above: Order Comment: No: D o not add to previous draw Performed By: #### 8 [id number] #### [facility] [address] [place] [id number], [facility] Hematocrit (Bld) [Volume fraction] 34.2 % Low 39.0-50.0 [facility] Comment on above: Order Comment: No: D o not add to previous draw Performed By: #### 8 [id number] #### [facility] [address] [place] [address], [facility] Hemoglobin (Bld) [Mass/Vol] 10.3 g/dL Low 13.0-17.0 [facility] Comment on above: Order Comment: No: D o not add to previous draw Performed By: #### 8 [id number] #### [facility] [address] [place] [id number], [facility] IMMATURE GRANS 1.4 % High 0.0-1.0 [facility] Comment on above: Order Comment: No: D o not add to previous draw Performed By: #### 8 [id number] #### [facility] [address] [facility] [place] [address], [facility] Lymphocytes (Bld) [#/Vol] 1.3 10*3/uL Normal 1.2-4.0 [facility] Comment on above: Order Comment: No: D o not add to previous draw Performed By: #### 8 [id number] #### [facility] [address] [facility] [place] [address], [facility] Lymphocytes/100 WBC (Bld) 11.3 % Low 20.0-45.0 [facility] Comment on above: Order Comment: No: D o not add to previous draw Performed By: #### 8 [id number] #### [facility] [address] [facility] [place] [address], [facility] MCH (RBC) [Entitic mass] 27.0 pg Normal 27.0-33.0 [facility] Comment on above: Order Comment: No: D o not add to previous draw Performed By: #### 8 [id number] #### [facility] [address] [facility] [place] [id number], [facility] MCHC (RBC) [Mass/Vol] 30.1 g/dL Low 32.0-35.0 [facility] Comment on above: Order Comment: No: D o not add to previous draw Performed By: #### 8 [id number] #### [facility] [address] [place] [address], [facility] MCV (RBC) [Entitic vol] 89.5 fL Normal 82.0-98.0 [facility] Comment on above: Order Comment: No: D o not add to previous draw Performed By: #### 8 [id number] #### [facility] [address] [place] [address], [facility] Monocytes (Bld) [#/Vol] 1.4 10*3/uL High 0.1-1.0 [facility] Comment on above: Order Comment: No: D o not add to previous draw Performed By: #### 8 [id number] #### [facility] [address] [place] [address], [facility] MONOS 12.6 % High 5.0-12.0 [facility] Comment on above: Order Comment: No: D o not add to previous draw Performed By: #### 8 [id number] #### [facility] [address] [place] [address], [facility] Neutrophils/100 WBC (Bld) 69.9 % Normal 40.0-72.0 [facility] Comment on above: Order Comment: No: D o not add to previous draw Performed By: #### 8 [id number] #### [facility] [address] [place] [address], [facility] Nucleated RBC/100 WBC (Bld) [Ratio] 0 % Normal 0-0 [facility] Comment on above: Order Comment: No: D o not add to previous draw Performed By: #### 8 [id number] #### [facility] [address] [place] [id number], [place] PLAT CNT 292 10*3/uL Normal 150-400 [facility] Comment on above: Order Comment: No: D o not add to previous draw Performed By: #### 8 [id number] #### [facility] [address] [place] [id number], [facility] RBC (Bld) [#/Vol] 3.82 10*6/uL Low 4.20-5.70 [facility] Comment on above: Order Comment: No: D o not add to previous draw Performed By: #### 8 [id number] #### [facility] [address] [place] [id number], [facility] WBC (Bld) [#/Vol] 11.28 10*3/uL High 4.00-10.60 [facility] Comment on above: Order Comment: No: D o not add to previous draw Performed By: #### 8 [id number] #### [facility] [address] [place] [address], [facility] COMP METABOLIC PANELon 07-14 Albumin [Mass/Vol] 3.1 g/dL Low 3.5-5.7 [facility] Comment on above: Order Comment: No: D o not add to previous draw Performed By: #### 8 [id number] #### [facility] [address] [place] [address], [facility] ALKALINE PHOSPH 77 IU/L Normal 34-104 [facility] Comment on above: Order Comment: No: D o not add to previous draw Performed By: #### 8 [id number] #### [facility] [address] [place] [address], [place] ALT [Catalytic activity/Vol] 8 U/L Normal 7-52 [facility] Comment on above: Order Comment: No: D o not add to previous draw Performed By: #### 8 [id number] #### [facility] [address] [place] [address], [place] AST [Catalytic activity/Vol] 11 U/L Low 13-39 [facility] Comment on above: Order Comment: No: D o not add to previous draw Performed By: #### 8 [id number] #### [facility] [address] [place] [address], [place] Bilirubin [Mass/Vol] 0.3 mg/dL Normal 0.3-1.0 [facility] Comment on above: Order Comment: No: D o not add to previous draw Performed By: #### 8 [id number] #### [facility] [address] [place] [address], [place] Calcium [Mass/Vol] 8.8 mg/dL Normal 8.6-10.3 [facility] Comment on above: Order Comment: No: D o not add to previous draw Performed By: #### 8 [id number] #### [facility] [address] [place] [address], [place] Chloride [Moles/Vol] 101 mmol/L Normal 98-107 [facility] Comment on above: Order Comment: No: D o not add to previous draw Performed By: #### 8 [id number] #### [facility] [address] [place] [address], [place] CO2 [Moles/Vol] 22 mmol/L Normal 21-31 [facility] Comment on above: Order Comment: No: D o not add to previous draw Performed By: #### 8 [id number] #### [facility] [address] [place] [address], [place] Creatinine [Mass/Vol] 3.38 mg/dL High 0.70-1.30 [facility] Comment on above: Order Comment: No: D o not add to previous draw Performed By: #### 8 [id number] #### [facility] [address] [place] [address], [place] eGFR- 23 ml/min/1.73sq m Abnormal >60 [facility] Comment on above: Order Comment: No: D o not add to previous draw Performed By: #### 8 [id number] #### [facility] [address] [place] [address], [place] eGFR- non- 19 ml/min/1.73sq m Abnormal >60 [facility] Comment on above: Order Comment: No: D o not add to previous draw Performed By: #### 8 [id number] #### [facility] [address] [place] [address], [place] Glucose [Mass/Vol] 324 mg/dL High 70-100 [facility] Comment on above: Order Comment: No: D o not add to previous draw Performed By: #### 8 [id number] #### [facility] [address] [place] [address], [place] Potassium [Moles/Vol] 4.5 mmol/L Normal 3.5-5.1 [facility] Comment on above: Order Comment: No: D o not add to previous draw Performed By: #### 8 [id number] #### [facility] [address] [place] [address], [place] Protein [Mass/Vol] 6.7 g/dL Normal 6.0-8.3 [facility] Comment on above: Order Comment: No: D o not add to previous draw Performed By: #### 8 [id number] #### [facility] [address] [place] [address], [place] Sodium [Moles/Vol] 131 mmol/L Low 136-145 [facility] Comment on above: Order Comment: No: D o not add to previous draw Performed By: #### 8 [id number] #### [facility] [address] [place] [address], [place] Urea nitrogen [Mass/Vol] 27 mg/dL High 7-25 [facility] Comment on above: Order Comment: No: D o not add to previous draw Performed By: #### 8 [id number] #### [facility] [address] [place] [address], [place] CREATININE URINE RANDOMon Creatinine (U) [Mass/Vol] 101.0 mg/dL Normal [facility] Comment on above: Order Comment: No: D o not add to previous draw Result Comment: Ther e are no established reference values for random urine specimens Performed By: #### 8 [id number] #### [facility] [address] [place] [address], [facility] FLUID CELL COUNTon 1 Basophils/100 WBC (Bld) 1 % Normal [facility] Comment on above: Performed By: #### 8 [id number] #### [facility] [address] [place] [address], [place] Eosinophils/100 WBC (Bld) 11 % Normal [facility] Comment on above: Performed By: #### 8 [id number] #### [facility] [address] [place] [address], [facility] Lymphocytes/100 WBC (Bld) 49 % Normal [facility] Comment on above: Performed By: #### 8 [id number] #### [facility] [address] [place] [address], [facility] MESOTHELIAL 12 % Normal [facility] Comment on above: Performed By: #### 8 [id number] #### [facility] [address] [place] [address], [facility] OTHER F1 Diff done by cytospin Normal [facility] Comment on above: Performed By: #### 8 [id number] #### [facility] [address] [place] [address], [facility] OTHER F3 Checked by Evelyn Rodriguez M.D. Normal [facility] Comment on above: Result Comment: Resu lt changed by VHERR on 07/15/2020 13:33. The previous value was Preliminary report; verified report to follow. Performed By: #### 8 [id number] #### [facility] [address] [place] [address], [place] RBC [address] RBC/uL Normal [facility] Comment on above: Performed By: #### 8 [id number] #### [facility] [address] [place] [address], [place] SEGS 27 % Normal [facility] Comment on above: Performed By: #### 8 [id number] #### [facility] [address] [place] [address], [place] SOURCE Thoracentesis Normal [facility] Comment on above: Performed By: #### 8 [id number] #### [facility] [address] [place] [address], [place] TOTAL VOLUME 1L Normal [facility] Comment on above: Performed By: #### 8 [id number] #### [facility] [address] [place] [address], [place] WBC 1762 WBC/uL Normal [facility] Comment on above: Result Comment: Some reference interval(s) and other method performance specifications have not been established for analytes on this body fluid. The test result must be integrated into the clinical context for interpretation. Performed By: #### 8 [id number] #### [facility] [address] [place] [address], [facility] GLUCOSE FLUID MISCon 021 Glucose [Mass/Vol] 326 mg/dL Normal [facility] Comment on above: Result Comment: The reference range and other method performance specifications have not been established for this test in fluids. the test result should be integrated into the clinical context for interpretation. Performed By: #### 3 1944 #### [facility] [address] [place] [address], [facility] HEMOGLOBIN A1Con 07-14-2020 Glucose [Moles/Vol] 295 mmol/L Normal [facility] Comment on above: Order Comment: Left Peural Effusion Performed By: #### 3 0318 #### [facility] [address] [place] [address], [place] HbA1c (Bld) [Mass fraction] 11.9 % High 4.0-6.0 [facility] Comment on above: Order Comment: Left Peural Effusion Performed By: #### 3 0318 #### [facility] [address] [place] [address], [place] HEPATITIS B SURFACE ANTIGEN QUALon 07-14-2020 HEP B SURF AG QUAL Non-Reactive Normal NONREACTIVE [facility] Comment on above: Order Comment: No: D o not add to previous draw Performed By: #### 3 1943 #### [facility] [address] [place] [address], [facility] HEPATITIS C ANTIBODYon 07-14 ANTI-HCV Non-Reactive Normal NONREACTIVE [facility] Comment on above: Order Comment: No: D o not add to previous draw Performed By: #### 3 1943 #### [facility] [address] [place] [address], [facility] LDH BLOODon 07-14-2020 LDH 176 Units/L Normal 140-271 [facility] Comment on above: Order Comment: Left Peural Effusion Performed By: #### 3 0318 #### [facility] [address] [place] [address], [facility] LDH 133 Units/L Low 140-271 [facility] Comment on above: Order Comment: No: D o not add to previous draw Performed By: #### 8 [id number] #### [facility] [address] [place] [address], [facility] LDH FLUIDon 07-14-2020 LDH 212 Units/L Normal [facility] Comment on above: Result Comment: The reference range and other method performance specifications have not been established for this test in fluids. the test result should be integrated into the clinical context for interpretation. Performed By: #### 3 1943 #### [facility] [address] [place] [address], [place] LIPID PROFILEon 07-14-2020 Cholesterol [Mass/Vol] 95 mg/dL Low 120-200 [facility] Comment on above: Order Comment: No: D o not add to previous draw Result Comment: CHOL ESTEROL REFERENCE RANGE: 20 YEARS AND OLDER CARDIOVASCULAR RISK Less than 200 mg/dl Low Risk 200 to 239 mg/dl Borderline Risk 240 mg/dl and greater High Risk Performed By: #### 8 [id number] #### [facility] [address] [place] [address], [place] Cholesterol in HDL [Mass/Vol] 36 mg/dL Normal 23-92 [facility] Comment on above: Order Comment: No: D o not add to previous draw Result Comment: Slig ht variation in normal range could be due to gender and/or age. HDL CHOLESTEROL REFERENCE RANGE: 20 years and older Cardiovascular Risk > or =60 mg/dL Desirable 40 TO 59 mg/dL Low Risk <40 mg/dL High Risk Performed By: #### 8 [id number] #### [facility] [address] [place] [address], [place] Cholesterol in LDL [Mass/Vol] 37 mg/dL Normal 0-130 [facility] Comment on above: Order Comment: No: D o not add to previous draw Result Comment: LDL IS A CALCULATION LDL IS ONLY VALID IF THE TRIG IS LESS THAN 400. Performed By: #### 8 [id number] #### [facility] [address] [place] [address], [place] Cholesterol.total/Ch olesterol in HDL [Mass ratio] 2.6 {ratio} Normal 0.0-4.5 [facility] Comment on above: Order Comment: No: D o not add to previous draw Performed By: #### 8 [id number] #### [facility] [address] [place] [address], [place] NON-HDL CHOLESTEROL 59 mg/dL Normal [facility] Comment on above: Order Comment: No: D o not add to previous draw Performed By: #### 8 [id number] #### [facility] [address] [place] [address], [place] Triglyceride [Mass/Vol] 109 mg/dL Normal 40-149 [facility] Comment on above: Order Comment: No: D o not add to previous draw Result Comment: TRIG LYCERIDE REFERENCE RANGE: 20 YEARS AND OLDER CARDIOVASCULAR RISK LESS THAN 150 mg/dl LOW RISK 150 TO 199 mg/dl BORDERLINE RISK 200 mg/dl AND GREATER HIGH RISK Performed By: #### 8 [id number] #### [facility] [address] [place] [address], [place] VLDL CHOL 22 mg/dL Normal 0-40 [facility] Comment on above: Order Comment: No: D o not add to previous draw Performed By: #### 8 [id number] #### [facility] [address] [place] [address], [place] MAGNESIUM BLOODon 07-14-2020 Magnesium [Mass/Vol] 2.1 mg/dL Normal 1.9-2.7 [facility] Comment on above: Order Comment: No: D o not add to previous draw Performed By: #### 8 [id number] #### [facility] [address] [place] [address], [place] Magnesium [Mass/Vol] 2.0 mg/dL Normal 1.9-2.7 [facility] Comment on above: Performed By: #### 8 [id number] #### [facility] [address] [place] [address], [place] PHOSPHORUS BLOODon Phosphate [Mass/Vol] 4.1 mg/dL Normal 2.5-5.0 [facility] Comment on above: Order Comment: No: D o not add to previous draw Performed By: #### 8 [id number] #### [facility] [address] [place] [address], [place] Phosphate [Mass/Vol] 4.0 mg/dL Normal 2.5-5.0 [facility] Comment on above: Performed By: #### 8 [id number] #### [facility] [address] [place] [address], [place] POC GLUCOSE LABon 07-14-2020 Glucose [Mass/Vol] 180 mg/dL High 70-100 [facility] Comment on above: Performed By: #### 8 [id number] ####[facility] [place] [address], [place] Glucose [Mass/Vol] 198 mg/dL High 70-100 [facility] Comment on above: Performed By: #### 5 7307, [id number] #### [facility] [address] [facility] [place] [address], [facility] Glucose [Mass/Vol] 265 mg/dL High 70-100 [facility] Comment on above: Performed By: #### 8 [id number] #### [facility] [address] [facility] [place] [address], [place] Glucose [Mass/Vol] 305 mg/dL High 70-100 [facility] Comment on above: Performed By: #### 5 7307, [id number] #### [facility] [address] [facility] [place] [address], [place] Glucose [Mass/Vol] 301 mg/dL High 70-100 [facility] Comment on above: Performed By: #### 5 0103 #### [facility] [address] [place] [address], [facility] PORTABLE CHEST 1 VIEWon 06-27 PORTABLE CHEST 1 [facility] Department of Radiology [address] [place] [id number] Patient Name: RASHARD LYMAN : 1960 Sex: M Age: Race: White Pt. Location: [address] [place] [address] Patient Status: I Ordered Date: 07/14/2020 1:40:00 [...] above Electronically signed: Patricia Damon. Transcribed by: [email or web address], User Resident: Electronically Signed by: PATRICIA DAMON @ 07/14/2020 03:24 PM Normal [facility] Comment on above: Order Comment: Evalu ate for Pneumothorax PORTABLE CHEST 1 [facility] Department of Radiology [address] [place] [id number] Patient Name: RASHARD LYMAN : 1960 Sex: M Age: Race: White Pt. Location: [id number] Patient Status: I Ordered Date: 07/13/2020 11:35:00 [...] reports Electronically signed: Valdemar Foster. Transcribed by: [email or web address], User Resident: SY MOFFETT Electronically Signed by: VALDEMAR FOSTER @ 07/14/2020 06:31 AM I personally read this/these film(s) with this resident Normal [facility] Comment on above: Order Comment: evalu ate for Effusion PROTEIN ELECT Truong 07-14-2020 Protein [Mass/Vol] 6.0 g/dL Normal 6.0-8.3 [facility] Comment on above: Performed By: #### 3 0318 #### [facility] [address] [place] [address], [place] PROTEIN ELECT Normal [facility] Comment on above: Result Comment: Decr eased albumin and elevated alpha 1 and 2 suggests acute inflammation. Performed By: #### 3 0318 #### [facility] [address] [place] [address], [place] PROTEIN ELECT URon PROTEIN ELECT Urine protein electrophoresis suggests a nonselective nephropathy. Normal [facility] Comment on above: Performed By: #### 3 1944 #### [facility] [address] [place] [address], [place] PROTEIN TOTAL BLOODon 2020 Protein [Mass/Vol] 6.7 g/dL Normal 6.0-8.3 [facility] Comment on above: Order Comment: Left Peural Effusion Performed By: #### 3 0318 #### [facility] [address] [facility]. [address] PROTHROMBIN TIMEon 1 INR Coag (PPP) [Relative time] 1.12 {INR} Normal 0.91-1.16 [facility] Comment on above: Order Comment: [...] CHEST 1995;[id number]. Performed By: #### 5 [id number], [id number] #### [facility] [address] [facility] [place] [address], [facility] PT Coag (PPP) [Time] 14.4 s Normal 12.3-14.8 [facility] Comment on above: Order Comment: No: D o not add to previous draw Result Comment: ALL RESULTS MUST BE INTERPRETED WITH RESPECT TO BLOOD DRAWING ARTIFACT OR DILUTION ERROR OF ANTICOAGULANT AT THE TIME OF SAMPLING. Performed By: #### 5 7307, [id number] #### [facility] [address] [facility] [place] [address], [facility] SEDIMENTATION RATEon 021 SED RATE 32 mm/hr High 0-10 [facility] Comment on above: Performed By: #### 8 [id number] #### [facility] [address] [place] [address], [facility] SODIUM URINE RANDOMon 2020 Sodium (U) [Moles/Vol] 59 mmol/L Normal [facility] Comment on above: Order Comment: No: D o not add to previous draw Result Comment: Ther e are no established reference values for random urine specimens Performed By: #### 8 [id number] #### [facility] [address] [place] [address], [facility] T PROT FLUIDon 07-14-2020 Protein [Mass/Vol] 3.6 g/dL Normal [facility] Comment on above: Result Comment: The reference range and other method performance specifications have not been established for this test in fluids. the test result should be integrated into the clinical context for interpretation. Performed By: #### 3 1944 #### [facility] [address] [place] [address], [facility] T PROT UR Loretta 07-14-2020 U TOTAL PROTEIN 859.0 mg/dL Normal [facility] Comment on above: Order Comment: No: D o not add to previous draw Result Comment: Ther e are no established reference values for random urine specimens Performed By: #### 8 [id number] #### [facility] [address] [place] [address], [facility] Performed By: #### 3 1944 #### [facility] [address] [place] [address], [facility] TROPONIN-Ion 07-14-2020 Troponin I.cardiac [Mass/Vol] 0.09 ng/mL High 0.00-0.04 [facility] Comment on above: Order Comment: No: D o not add to previous draw Result Comment: REFE RENCE RANGES: 0.00 - 0.04 ng/ml NORMAL 0.05 - 0.50 ng/ml INDETERMINATE > 0.50 ng/ml CONSISTENT WITH AN M.I. Performed By: #### 8 [id number] #### [facility] [address] [place] [address], [facility] Troponin I.cardiac [Mass/Vol] 0.07 ng/mL High 0.00-0.04 [facility] Comment on above: Order Comment: No: D o not add to previous draw Result Comment: REFE RENCE RANGES: 0.00 - 0.04 ng/ml NORMAL 0.05 - 0.50 ng/ml INDETERMINATE > 0.50 ng/ml CONSISTENT WITH AN M.I. Performed By: #### 8 [id number] #### [facility] [address] [facility] [place] [address], [facility] TSH3on 07-14-2020 TSH 3RD GENERATION 3.28 uIU/mL Normal 0.34-5.60 [facility] Comment on above: Order Comment: No: D o not add to previous draw Performed By: #### 8 [id number] #### [facility] [address] [place] [address], [facility] URIC ACID BLOODon 07-14-2020 Urate [Mass/Vol] 7.1 mg/dL Normal 4.4-7.6 [facility] Comment on above: Performed By: #### 8 [id number] #### [facility] [address] [place] [address], [facility] URINALYSIS REFLEXon 07-15-19 21 Appearance (U) SL CLOUDY Abnormal CLEAR [facility] Comment on above: Order Comment: Left Peural Effusion Performed By: #### 3 0318 #### [facility] [address] [place] [address], [facility] Bilirubin Ql (U) Negative Normal NEGATIVE [facility] Comment on above: Order Comment: Left Peural Effusion Performed By: #### 3 0318 #### [facility] [address] [place] [address], [place] Color (U) YELLOW Normal YELLOW [facility] Comment on above: Order Comment: Left Peural Effusion Performed By: #### 3 0318 #### [facility] [address] [place] [address], [place] EPIS FEW Normal FEW,OCC,NONE SEEN [facility] Comment on above: Order Comment: Left Peural Effusion Performed By: #### 3 0318 #### [facility] [address] [place] [address], [place] Glucose Ql (U) >=500 Abnormal NEGATIVE [facility] Comment on above: Order Comment: Left Peural Effusion Performed By: #### 3 0318 #### [facility] [address] [place] [address], [place] Hemoglobin Ql (U) TRACE Abnormal NEGATIVE [facility] Comment on above: Order Comment: Left Peural Effusion Performed By: #### 3 0318 #### [facility] [address] [place] [address], [facility] KETONE TRACE Abnormal NEGATIVE [facility] Comment on above: Order Comment: Left Peural Effusion Performed By: #### 3 0318 #### [facility] [address] [place] [address], [place] LEUK JACIEL Negative Normal NEGATIVE [facility] Comment on above: Order Comment: Left Peural Effusion Performed By: #### 3 0318 #### [facility] [address] [place] [address], [place] MUCUS THREADS OCC Abnormal NONE SEEN [facility] Comment on above: Order Comment: Left Peural Effusion Performed By: #### 3 0318 #### [facility] [address] [place] [address], [place] Nitrite Ql (U) Negative Normal NEGATIVE [facility] Comment on above: Order Comment: Left Peural Effusion Performed By: #### 3 0318 #### [facility] [address] [place] [address], [place] pH (U) 6.0 [pH] Normal 5.0-8.0 [facility] Comment on above: Order Comment: Left Peural Effusion Performed By: #### 3 0318 #### [facility] [address] [facility]. [address] Protein Ql (U) >=500 Abnormal NEGATIVE [facility] Comment on above: Order Comment: Left Peural Effusion Performed By: #### 3 0318 #### [facility] [address] [facility]. [address] RBC 0-2 Abnormal NONE SEEN [facility] Comment on above: Order Comment: Left Peural Effusion Performed By: #### 3 0318 #### [facility] [address] [facility]. [address] SPEC GRAV 1.017 Normal 1.015-1.020 [facility] Comment on above: Order Comment: Left Peural Effusion Performed By: #### 3 0318 #### [facility] [address] [facility]. [address] WBC UA 3-5 Abnormal NONE SEEN [facility] Comment on above: Order Comment: Left Peural Effusion Performed By: #### 3 0318 #### [facility] [address] Vital Signs Date Time Vital Sign Value Performing Clinician Facility 02-27-2024 11: Body height 193 cm Nima Lee MD Work Phone: [facility] 02-27-2024 11:25-040 Body mass index (BMI) [Ratio] 28 kg/m2 Nima Lee MD Work Phone: [facility] 02-27-2024 11:25040 Body temperature 97.11 [degF] Nima Lee MD Work Phone: [facility] 02-27-2024 11:25040 Body weight 104.33 kg Nima Lee MD Work Phone: [facility] 02-27-2024 11:25-0400 Diastolic blood pressure 80 mm[Hg] Nima Lee MD Work Phone: [email or web address] 02-27-2024 11:25-0400 Heart rate 78 /min Nima Lee MD Work Phone: [facility] 02-27-2024 11:25-0400 SaO2% (BldA) [Mass fraction] 98 % Nima Lee MD Work Phone: [facility] 02-27-2024 11:25-0400 Systolic blood pressure 130 mm[Hg] Nima Lee MD Work Phone: [email or web address] 03-21-2021 15:40-0500 Body height 193.04 cm Judahmani Jaki Other [employer] Other 03-21-2021 15:40-0500 Body mass index (BMI) [Ratio] 39.02 kg/m2 Kike Gomesangela Other [employer] Other 03-21-2021 15:40-0500 Body temperature 97.8 [degF] Kike Jaki Other [employer] Other 03-21-2021 15:40-0500 Body weight 145.42 kg Kike Jaki Other [employer] Other 03-21-2021 15:40-0500 Diastolic blood pressure 84 mm[Hg] Kike Jaki Other [employer] Other 03-21-2021 15:40-0500 Respiratory rate 18 /min Kike Jaki Other [employer] Other 03-21-2021 15:40-0500 SaO2% (BldA) [Mass fraction] 96 % Judahmani Jaki Other [employer] Other 03-21-2021 15:40-0500 Systolic blood pressure 137 mm[Hg] Kike Pollack Other [facility] [employer] Other 08-25-2020 12:24-0400 Heart rate 82 /min Jose Valone Work Phone: [facility] 08-25-2020 12:24-0400 Respiratory rate 20 /min Jose Valone Work Phone: [facility] 08-25-2020 11:17-0400 Body temperature 98.7 [degF] Jose Valone Work Phone: [facility] 08-25-2020 11:17-0400 Diastolic blood pressure 94 mm[Hg] Jose Valone Work Phone: [facility] 08-25-2020 11:17-0400 SaO2% (BldA) [Mass fraction] 96 % Jose Valone Work Phone: [facility] 08-25-2020 11:17-0400 Systolic blood pressure 183 mm[Hg] Jose Valone Work Phone: [facility] 08-25-2020 06:00-0400 Body weight 160.5 kg Jose Valone Work Phone: [facility] 08-19-2020 14:17-0400 Body height 193.04 cm Jose Valone Work Phone: [facility] 08-18-2020 21:22-0400 Body height 193.04 cm Jose Valone Work Phone: [facility] 08-18-2020 21:22-0400 Body mass index (BMI) [Ratio] 43.8 kg/m2 Jose Valone Work Phone: [facility] 08-18-2020 21:22-0400 Body temperature 97.6 [degF] Jose Valone Work Phone: [facility] 08-18-2020 21:22-0400 Body weight 163.3 kg Jose Juarez Work Phone: [facility] 08-18-2020 21:22-0400 Diastolic blood pressure 80 mm[Hg] Jose Juarez Work Phone: [facility] 08-18-2020 21:22-0400 Heart rate 105 /min Jose Juarez Work Phone: [facility] 08-18-2020 21:22-0400 Respiratory rate 18 /min Jose Juarez Work Phone: [facility] 08-18-2020 21:22-0400 SaO2% (BldA) [Mass fraction] 94 % Jose Juarez Work Phone: [facility] 08-18-2020 21:22-0400 Systolic blood pressure 160 mm[Hg] Jose Juarez Work Phone: [facility] Encounters Encounter Date Encounter Type Care Provider Facility Start: 10-26-2024 End: 10-26-2024 ambulatory Chino [facility] Work Phone: Start: 10-26-2024 End: 10-26-2024 Departed Referred Chino Elliott DPJuma [facility] Start: 08-28-2024 End: 08-28-2024 ambulatory Chino Hopson [facility] Work Phone: Start: 08-28-2024 End: 08-28-2024 Departed Referred Chino Elliott DPM Work Phone: [facility] Start: 02-27-2024 End: 02-27-2024 Office outpatient visit 25 minutes Nima Lee MD Work Phone: [facility] Surgery Comment on above: 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) Start: 02-17-2024 End: 02-17-2024 ambulatory JOSE JUAREZ [place] Start: 01-20-2024 End: 01-20-2024 ambulatory JOSE JUAREZ [place] Start: 12-16-2023 End: 12-16-2023 ambulatory JOSE JUAREZ [place] Start: 11-19-2023 End: 11-19-2023 ambulatory JOSE JUAREZ [facility] Start: 10-23-2023 End: 10-23-2023 ambulatory JOSE JUAREZ [place] Start: 09-03-2023 End: 09-03-2023 ambulatory JOSE JUAREZ [place] Start: 07-31-2023 End: 07-31-2023 ambulatory JOSE JUAREZ [place] Start: 07-02-2023 End: 07-02-2023 ambulatory JOSE JUAREZ [place] Start: 06-04-2023 End: 06-04-2023 ambulatory JOSE Anmol JUAREZ [place] Start: 05-31-2023 End: 06-01-2023 ambulatory JUANCARLOS LEHMAN [facility] Start: 05-06-2023 End: 05-06-2023 ambulatory JOSE JUAREZ [place] Start: 04-19-2023 End: 04-19-[facility] Start: 02-27-2023 End: 02-28-2023 ambulatory CHINO ELLIOTT [facility] Start: 09-11-2022 End: 09-12-2022 ambulatory CHINO ELLIOTT Facility:[facility] Start: 08-28-2022 End: 08-29-2022 ambulatory CHINO ELLIOTT Facility:[facility] Start: 08-24-2022 End: 08-25-[address] JOSE JUAREZ Facility:[facility] Start: 08-20-2022 End: 08-21-[address] JOSE JUAREZ Facility:[facility] Start: 08-19-2022 Encounter for preprocedural cardiovascular examination CHINO ELLIOTT [facility] Start: 08-19-2022 Encounter for preprocedural laboratory examination CHINO ELLIOTT [facility] Start: 08-19-2022 Encounter for preprocedural respiratory examination CHINO ELLIOTT [facility] Start: 08-15-2022 End: 08-16-[address] [...] 03-21-2021 End: 03-21-2021 ambulatory Kike Pollack Other [employer] Other Start: 03-21-2021 Office outpatient vi sit 25 minutes Kike Pollack [facility] Start: 10-20-2020 End: 10-21-2020 ambulatory UNKNOWN PROVIDER Facility:[facility] Start: 09-28-2020 End: 09-28-2020 Patient encounter procedure Jose Juarez Work Phone: -Respiratory Therapy Start: 09-06-2020 End: 09-06-2020 Patient encounter procedure Jose Juarez Work Phone: -Electrodiagnostics Start: 08-18-2020 End: 08-25-2020 Evaluation and management of inpatient Jose Juarez Work Phone: -[facility] Start: 07-13-2020 End: 07-22-2020 Evaluation and management of inpatient SAVANNAH REYNOLDS Facility:[facility] Procedures Date Procedure Procedure Detail Performing Clinician [...] CAV WITH DRAIN DEV, PERC ENDO APPROACH [facility] Start: 07-19-2020 EXCISION OF LEFT PLE URA, PERC ENDO APPROACH, DIAGN [facility] Start: 07-19-2020 INTRODUCE OF OTH THE RAP SUBST INTO RESP TRACT, VIA OPENING [facility] Start: 07-19-2020 RELEASE LEFT PLEURA, PERCUTANEOUS ENDOSCOPIC APPROACH [facility] Start: 07-15-2020 DRAINAGE OF LEFT PLE URAL CAVITY, PERC APPROACH, DIAGN [facility] Start: 07-15-2020 DRAINAGE OF LEFT PLE URAL CAVITY, PERCUTANEOUS APPROACH [facility] Start: 07-14-2020 DRAINAGE OF LEFT PLE URAL CAVITY, PERCUTANEOUS APPROACH [facility] Start: 07-14-2020 ULTRASONOGRAPHY OF R IGHT AND LEFT HEART, TRANSESOPHAGEAL LOSR Laura [place] Plan of Treatment Date Care Activity Detail Author Start: 02-10-2027 DTaP,Tdap and Td Vac cines (2 - Td or Tdap) DTaP,Tdap and Td Vaccines (2 - Td or Tdap) [facility] Start: 10-26-2024 [facility] Start: 08-28-2024 [facility] Start: 05-06-2024 Urine screening for protein Urine Microalbumin [facility] Start: 02-27-2024 End: 02-26-2025 US.doppler Extremity arteries - bilateral for physiologic artery study Vas art doppler lwr bilat mult lev/PVR Vascular Ultrasound Routine Critical limb ischemia of left lower extremity with gangrene ([facility]-HCC) Expected: 02/27/2024, Expires: 02/26/2025 [place] Work Phone: Comment on above: Expected: 02/27/2024 , Expires: 02/26/2025 Start: 12-29-2023 COVID-19 Vaccine ( season) COVID-19 Vaccine ( season) [facility] Start: 12-29-2023 Influenza vaccination Influenza Vacc ine [facility] Start: 08-18-2020 Bacteria identified in Blood by Culture Blood Culture [facility] Start: 02-04-2010 Administration of varicella zoster vaccine Zoster (Shingles) Vaccine (1 of 2) [facility] Start: 02-04-1978 Adult BMI Screening Adult BMI Screen ing [facility] Start: 02-04-1978 Diabetic foot examination Diabetic F oot Exam [facility] Start: 1972 Depression Screening Depression Scre ening [facility] Start: 1972 Tobacco Screening Tobacco Screening [facility] Start: 1960 Glaucoma screening Diabetic Op hthalmology Exam [facility] Patient referral [facility] Immunizations Immunization Date Immunization Notes Care Provider Fa cility 01-29-2020 influenza virus vacc ine, unspecified formulation Nima Lee MD Work Phone: [facility] 02-10-2017 tetanus toxoid, redu jennifer diphtheria toxoid, and acellular pertussis vaccine, adsorbed Nima Lee MD Work Phone: [facility] 05-27-2015 influenza, seasonal, injectable Kike Pollack Other [facility] 05-27-2015 pneumococcal polysaccharide vaccine, 23 valent Kike Pollack Other [facility] Payers Date Payer Category Payer Unknown [id number] 2017 [employer] Kendrick palmer [employer]aged [employer] - Other [place] [id number] 1960 Unknown [id number] 2.16.840.1.819946.3.579. 2.647 1960 Unknown [id number] 2.16.840.1.857633.3.579. 2.732 1960 Unknown [id number] 2.16.840.1.603935.3.579. 2.593 1960 Unknown [id number] 2.16.840.1.802506.3.579. 2.593 1960 Unknown [id number] 2.16.840.1.027991.3.579. 2.593 1960 Unknown [id number] 2.16.840.1.975915.3.579. 2.593 1960 Unknown [id number] 2.16.840.1.303564.3.579. 2.593 1960 Unknown [id number] 2.16.840.1.365346.3.579. 2.593 1960 Unknown [id number] 2.16.840.1.553645.3.579. 2.593 1960 Unknown [id number] 2.16.840.1.062569.3.579. 2.593 1960 Unknown [id number] 2.16.840.1.903454.3.579. 2.593 1960 Unknown [id number] 2.16.840.1.929745.3.579. 2.593 1960 Unknown [id number] 2.16.840.1.491089.3.579. 2.593 1960 Unknown [id number] 2.16.840.1.253920.3.579. 2.593 1960 Unknown [id number] 2.16.840.1.331856.3.579. 2.593 1960 Unknown [id number] 2.16.840.1.979774.3.579. 2.593 1960 Unknown [id number] 2.16.840.1.777489.3.579. 2.593 1960 Unknown [id number] 2.16.840.1.284082.3.579. 2.593 1960 Unknown [id number] 2.16.840.1.558313.3.579. 2.593 1960 Unknown [id number] 2.16.840.1.021923.3.579. 2.593 1960 Unknown [id number] 2.16.840.1.740255.3.579. 2.593 1960 Unknown [id number] 2.16.840.1.965242.3.579. 2.593 1960 Unknown [id number] 2.16.840.1.419291.3.579. 2.593 1960 Unknown [id number] 2.16.840.1.303956.3.579. 2.593 1960 Unknown [id number] 2.16.840.1.559675.3.579. 2.593 1960 Unknown [id number] 2.16.840.1.872162.3.579. 2.593 1960 Unknown [id number] 2.16.840.1.127494.3.579. 2.593 1960 Unknown [id number] 2.16.840.1.048775.3.579. 2.593 1960 Unknown [id number] 2.16.840.1.559431.3.579. 2.593 1960 Unknown [id number] 2.16.840.1.567217.3.579. 2.593 1960 Unknown [id number] 2.16.840.1.515742.3.579. 2.593 1960 Unknown [id number] 2.16.840.1.756653.3.579. 2.593 1960 Unknown [id number] 2.16.840.1.458904.3.579. 2.593 1960 Unknown [id number] 2.16.840.1.083508.3.579. 2.593 1960 Unknown [id number] 2.16.840.1.169692.3.579. 2.593 1960 Unknown [id number] 2.16.840.1.201360.3.579. 2.593 1960 Unknown [id number] 2.16.840.1.773653.3.579. 2.593 1960 Unknown [id number] 2.16.840.1.948822.3.579. 2.593 1960 Unknown [id number] 2.16.840.1.406997.3.579. 2.593 1960 Unknown [id number] 2.16.840.1.671857.3.579. 2.593 1960 Unknown [id number] 2.16.840.1.453232.3.579. 2.593 1960 Unknown [id number] 2.16.840.1.562003.3.579. 2.593 1960 Unknown [id number] 2.16.840.1.589773.3.579. 2.593 1960 Unknown [id number] 2.16.840.1.015325.3.579. 2.593 1960 Unknown [id number] 2.16.840.1.646315.3.579. 2.593 1960 Unknown [id number] 2.16.840.1.496977.3.579. 2.593 1960 Unknown [id number] 2.16.840.1.806584.3.579. 2.1286 1960 Unknown [id number] 2.16.840.1.193228.3.579. 2.1286 1960 Unknown [id number] 2.16.840.1.375029.3.579. 2.1286 1960 Unknown [id number] 2.16.840.1.241384.3.579. 2.1286 1960 Unknown [id number] 2.16.840.1.600237.3.579. 2.1286 1960 Unknown [id number] 2.16.840.1.472894.3.579. 2.1286 1960 Unknown [id number] 2.16.840.1.464796.3.579. 2.1286 1960 Unknown [id number] 2.16.840.1.663669.3.579. 2.1286 1960 Unknown [id number] 2.16.840.1.722581.3.579. 2.1286 1960 Unknown [id number] 2.16.840.1.066689.3.579. 2.1286 1960 Unknown [id number] 2.16.840.1.446646.3.579. 2.1286 1959 Unknown [id number] Medicare Self Pay [id number] Medicare Medicare [id number] Self-pay Self Pay [id number] Social History Date Type Detail Facility Tobacco smoking stat [facility] Unknown if ever smoked [facility] Start: 1960 Sex Assigned At Male F [facility] Start: 08-18-2020 [facility] Start: 08-22-2020 [facility] (finding[facility] Start: 06-09-2020 End: 02-27-2024 Sex Assigned At [employer] Other Start: 02-10-2017 Tobacco smoking stat us [facility] Ex-smoker [facility] End: 02-11-2016 History of tobacco use Current smoker [facility] End: 02-11-2016 History of tobacco use Cigarette Smoker [facility] Start: 02-10-2017 Tobacco use and exposure Smokeless tobacco non-user [facility] Start: 02-27-2024 Alcoholic beverage intake Current non-drinker of alcohol (finding) [facility] Start: 06-09-2020 End: 02-27-2024 History of Social function [facility] [facility] Childcare Unknown [facility] Start: 1960 Sex assigned at Not on file P [facility] Start: 12-02-2014 End: 08-29-2024 Sex Male (finding) [facility] Goals Date Patient Goal Desired Activity /State Functional Status Date Assessment Result Facility 08-25-2020 Functional status Patient at Baseline [facility] Mental Status Date Assessment Result Facility 08-25-2020 Cognitive function Cognitive Sta tus Patient at Baseline [facility] Clinical Notes 07-15-2020 to 02-27-2024 Assessment & Plan Note - Nima Lee MD - 02/27/2024 11:44 AM EDTAssessment & Plan Note - Nima Lee MD - 02/27/2024 11:44 AM EDTMbernard Lee MD - 02/27/2024 11:20 AM EDT Note Date & Type Note Facility 02-27-2024 Evaluation + Plan note Associated Problem(s): Critical limb ischemia of left lower extremity with gangrene ([facility]) PVR [facility] 02-27-2024 Miscellaneous Notes Associate d Problem(s): Critical limb ischemia of left lower extremity with gangrene ([facility]) PVR documented in this encounter [facility] 02-27-2024 History of Presen t illness [...] musculoskeletal pain COPD (chronic obstructive pulmonary disease) ([facility] Diabetes mellitus ([facility]) Fracture, clavicle History of MRSA (methicillin resistant Staphylococcus aureus) Neuropathy Renal failure Dialysis since 04/2014 Past Surgical History: Past Surgical History: Procedure Laterality Date APPENDECTOMY CHOLECYSTECTOMY DIALYSIS FISTULA CREATION Right arm INJECTION CAUDAL EPIDURAL WITH CATHETER, STEROID N/A 06/05/2019 Performed by Jefferson Bryant MD at [facility] Right 5th TONSILLECTOMY Social [...] Plan PVR 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 Diagnoses and all orders for this visit: Critical limb ischemia of left lower extremity with gangrene ([facility]-HCC) Nima Lee MD, MISTY, RPVI, FSVS, FACS [facility] [employer] [facility] This note was created with the assistance of a speech recognition program. While intending to generate a timely document that accurately reflects the content of the visit, no guarantee can be provided that every grammatical or spelling mistake has been or will be identified or corrected. Thank you for your understanding. documented in this encounter [facility] 08-20-2022 Note PROCEDURE: XR FOOT L T [...] authenticated by: PRISCA SANDERSON Date: 2022-08-20 13:00 [facility] 08-15-2022 Note EXAM: XR CHEST 2 [...] authenticated by: CHINO CABALLERO Date: 2022-08-15 15:06 [facility] 08-01-2022 Note PROCEDURE: XR FOOT L [...] authenticated by: JAMESON SALGUERO Date: 2022-08-01 07:49 [facility] 03-01-2022 Note CONSULTATION CONSULTATION DATE: 03/01/2022 [...] with certain activities such as standing, walking, freezer 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 The [facility] 03-01-2022 Note CONSULTATION PROCEDURE DATE: 03/01/2022 PREOPERATIVE [...] pattern and patient tolerated procedure well. The [facility] 12-22-2021 Note PROCEDURE: XR ANKLE LT MIN [...] authenticated by: PRISCA SANDERSON Date: 2021-12-22 10:12 [facility] 12-22-2021 Note PROCEDURE: XR ANKLE LT [...] authenticated by: PRISCA SANDERSON Date: 2021-12-22 10:12 [facility] 12-22-2021 Note PROCEDURE: XR ANKLE LT [...] authenticated by: PRISCA SANDERSON Date: 2021-12-22 10:12 [facility] 12-22-2021 Note PROCEDURE: XR ANKLE LT 2V HISTORY: Pain ; left ankle external fixation application COMPARISON: None. FINDINGS: BONES:3 intraoperative spot fluoroscopic images demonstrate external fixation device surrounding the left ankle. IMPRESSION: External fixation device application. Electronically authenticated by: PRISCA SANDERSON Date: 2021-12-22 10:07 [facility] 12-12-2021 Note PROCEDURE: XR FOOT L [...] by: PRISCA SANDERSON Date: 2021-12-12 08:04 [facility] 11-30-2021 Note CONSULTATION The patient returns to [...] in clinic in three months' time. The [facility] 11-22-2021 Note CONSULTATION CONSULTATION DATE: 11/22/2021 HISTORY [...] to the clinic to receive those. The [facility] 11-14-2021 Note PROCEDURE: XR FOOT L T [...] by: PRISCA SANDERSON Date: 2021-11-14 15:42 [facility] 11-07-2021 Note PROCEDURE: XR FOOT L T [...] authenticated by: JAMESON SALGUERO Date: 2021-11-07 19:28 [facility] 03-21-2021 Evaluation note Encounter Date Diagnosis [...] takes midodrine as well as stated above. [employer] Other 03-27-2021 NoteMR#: [id number] [facility] Pt. Name: Rashard Lyman Admitted: [...] chest pain. Also, there is mention on [facility] records of large inferior/lateral wall abnormality in [...] ON DISCHARGE: A (more content not included)...[facility]03-19-2021 NoteMR#: [id number] [facility] Pt. Name: Rashard Lyman Surgery Date: 07/14/2020 Room #: 3AB [id number] Date of : 1960 PROCEDURE NOTE ATTENDING: [...] Pham MD Date Trans: 07/15/2020 01:32 P/ [id number] cc: Nima Wynne MD [address] [place], [place] [address] [place] [address] NoteMR#: [id number] [facility] Pt. Name: Rashard Lyman Surgery Date: 07/14/2020 Room #: 3AB [id number] Date of : 1960 PROCEDURE NOTE ATTENDING: Nima Wynne MD Procedure: Left sided US guided Thoracentesis Pre-procedure Diagnosis: Left pleural effusion Post-procedure Diagnosis: same as above Prior to Procedure: Informed Consent:The risks, benefits, indications, potential complications, and alternatives were explained to the patient/family and informed consent obtained Attending Staff: Nima Wynne Resident/Fellow/PAIN MEDICINE PHYSICIAN: Davis Pham Indications: Nura Munoz is 60 [...] Nima Wynne MD Date Dict: 07/15/2020/12:53 P/Nima yWnne MD Date Trans: 07/15/2020 12:53 P/ [id number] [facility] Diagnosis Onset Date Resolution Status Hyperglycemia acute Pneumonia acute Psoriasis acute 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 acute CKD (chronic kidney disease) stage 4, GFR 15-29 ml/min chronic COPD (chronic obstructive pulmonary disease) chronic 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 GERD (gastroesophageal reflux disease) chronic Obesities, morbid chronic Peripheral vascular occlusive disease chronic 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 Diagnosis Onset Date Resolution Status MARISOL (acute kidney injury) ac elim ira Anemia of renal disease acut e Atelectasis of left lung acu te Fibrothorax acute History of pleural effusion acute Metabolic acidosis acute Pericarditis acute Pleuritic chest pain acute Psoriasis acute 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 acute CKD (chronic kidney disease) stage 4, GFR 15-29 ml/min chronic COPD (chronic obstructive pulmonary disease) chronic 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 GERD (gastroesophageal reflux disease) chronic Hypertension chronic [id number] chronic Obesities, morbid chronic Peripheral vascular occlusive disease chronic 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 [facility]* Diagnosis Critical limb ischemia of left lower extremity with gangrene ([facility])- Primary [facility] assessment information available [facility] Work Phone: History general Narrative - [...] HIS LOWER BACK Hospitalization History see above [employer] Other Hospital Discharge instructions Additional Instructions You are scheduled for an outpatient follow up ECHOCARDIOGRAM in 2 weeks at [facility] to re-assess your pericardial effusions on 09/06/2020 [...] knee Educate on high risk fall precautions [facility] instructions[facility] Discharge instructions[facility] InstructionsNot on filedocumented in this encounterOhio[facility] SystemReason for referral (narrative)No reason for referral information availableReg[facility] Work Phone: Assessments No Assessments Information [...] 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 GERD (gastroesophageal reflux disease) Hypertension [id number] Obesities, morbid Peripheral vascular occlusive disease Status [...] 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 GERD (gastroesophageal reflux disease) Hypertension [id number] Obesities, morbid Peripheral vascular occlusive disease Status [...] 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 GERD (gastroesophageal reflux disease) Hypertension [id number] Obesities, morbid Peripheral vascular occlusive disease Status [...] and content) DATE CREATED AUTHOR 09/11/2020 [facility] DATE CREATED AUTHOR AUTHOR'S ORGANIZ ATION 10/21/2020 [facility] DATE CREATED AUTHOR AUTHOR'S ORGANIZ ATION 10/05/2022 [facility] DATE CREATED AUTHOR AUTHOR'S ORGANIZ ATION 06/03/[address] 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 Non healing. Care Teams (unrecognized sec tion and content) Spread Cutter Relationship Specialty Start Date End Date LarryJose Jr., DO [address] [place] [address] PCP - General Internal Medicine 02/10/17 Team [...] BE BASED ON THE PRIMARY CLINICAL RECORDS. [employer] provides no warranty or guarantee of the accuracy or completeness of information in this document.
[2024-12-22 21:49] VITALS: O2SAT 97
--- NOTE | 2024-12-22 22:08 | XR_ITS ---
[place] [id number] Patient Name: RASHARD TAN MRN: [id number] date: 1960 Sex: M Assigned Patient Location: ER Current Patient Location: ER Accession/Order Number: [id number] Exam Date: 12/22/2024 22:58 Report Date: 12/22/2024 23:35 At the request of: ELLYN MORATAYA MD Procedure: XR chest 1V XR chest 1V 12/22/2024 11:07 PM SIGNS AND SYMPTOMS: ^syncope PROTOCOL: Frontal radiograph of the chest COMPARISON: 08/15/2022 FINDINGS: The trachea is midline. Atherosclerotic changes are present in the thoracic aorta. The heart and mediastinal structures are within normal limits. The lung parenchyma is clear. The bony thorax is intact. Degenerative changes are noted in the shoulders. XR/XR chest 1V IMPRESSION: No acute cardiopulmonary pathology. Impression dictated by: Hector Mckinney M.D. 12/22/2024 11:35 PM Dictation Location: [place] [address] Electronically authenticated by: [id number] Y Date: 12/22/2024 23:35
--- NOTE | 2024-12-22 22:08 | XR_ITS ---
[place] [id number] Patient Name: RASHARD TAN MRN: [id number] date: 1960 Sex: M Assigned Patient Location: ER Current Patient Location: ER Accession/Order Number: [id number] Exam Date: 12/22/2024 22:58 Report Date: 12/22/2024 23:34 At the request of: ELLYN MORATAYA MD Procedure: XR hip RT 2V w/ pelvis XR hip RT 2V w/ pelvis 12/22/2024 11:07 PM SIGNS AND SYMPTOMS: ^fall, right sided hip pain PROTOCOL: Frontal radiograph the pelvis with frontal and frog-leg views of the right hip COMPARISON: None FINDINGS: There is an intertrochanteric fracture of the right hip with mild varus angular deformity. There is mild to moderate narrowing of the joint spaces of the hips. Degenerative changes are noted in the lumbar spine and sacroiliac joints. Vascular calcifications are present in the pelvis. XR/XR hip RT 2V w/ pelvis IMPRESSION: There is an intertrochanteric fracture of the right hip with mild varus angular deformity. Impression dictated by: Hector Mckinney M.D. 12/22/2024 11:34 PM Dictation Location: [place] [address] Electronically authenticated by: [id number] Y Date: 12/22/2024 23:34
--- NOTE | 2024-12-22 22:08 | XR_ITS ---
[address] [address] Patient Name: RASHARD TAN MRN: [id number] date: 1960 Sex: M Assigned Patient Location: ER Current Patient Location: ER Accession/Order Number: [id number] Exam Date: 12/22/2024 22:58 Report Date: 12/22/2024 23:40 At the request of: ELLYN MORATAYA MD Procedure: XR wrist RT 2V XR wrist RT 2V 12/22/2024 11:07 PM SIGNS AND SYMPTOMS: ^fall, right wrist pain PROTOCOL: Frontal, lateral, and oblique radiographs of the right wrist COMPARISON: None FINDINGS: There is an impacted distal radius fracture with slight dorsal tilt of the articular surface of the distal radius. There is accompanying soft tissue swelling. There is a remote ulnar styloid fracture. Carpal bones are grossly intact. Mild degenerative changes are noted at the base of the thumb. XR/XR wrist RT 2V IMPRESSION: There is an impacted distal radius fracture with slight dorsal tilt of the articular surface of the distal radius. There is accompanying soft tissue swelling. Impression dictated by: Hector Mckinney M.D. 12/22/2024 11:40 PM Dictation Location: [place] [address] Electronically authenticated by: [id number] Y Date: 12/22/2024 23:40
--- NOTE | 2024-12-22 22:08 | XR_ITS ---
The [address] [address] Patient Name: RASHARD TAN MRN: [id number] date: 1960 Sex: M Assigned Patient Location: ER Current Patient Location: ER Accession/Order Number: [id number] Exam Date: 12/22/2024 22:58 Report Date: 12/22/2024 23:42 At the request of: ELLYN MORATAYA MD Procedure: XR tibia fibula RT 2V XR tibia fibula RT 2V 12/22/2024 11:07 PM SIGNS AND SYMPTOMS: ^fall, injury to right upper fibula, PROTOCOL: Frontal and lateral radiographs of the right tibia and fibula COMPARISON: 11/28/2020 FINDINGS: There is mild narrowing of the medial weightbearing joint space of the right knee. The bones are in anatomic alignment. There is no evidence of fracture or dislocation. No significant soft tissue swelling. Vascular calcifications are present. There is plantar and Achilles surface calcaneal spurring. XR/XR tibia fibula RT 2V IMPRESSION: No fracture. Impression dictated by: Hector Mckinney M.D. 12/22/2024 11:42 PM Dictation Location: [facility]ENTER[facility] Electronically authenticated by: [id number] Y Date: 12/22/2024 23:42
--- NOTE | 2024-12-22 22:08 | ECG_ITS ---
[facility] Date: 2024-12-22 Pat Name: RASHARD TAN Department: Room: - Gender: Male Residence Manager: : 1960 Requested By: [id number] Order Number: [id number] Reading MD: DOUGLAS GLASS Measurements Intervals [place] Rate: 76 P: 69 KS: 208 QRS: 45 QRSD: 106 T: -12 QT: 386 QTc: 417 Interpretive Statements 1100 Sinus rhythm 4664 Twave abnormality, possible inferior ischemia 9150 abnormal ECG Compared to ECG 08/27/2024 11:45:07 Possible ischemia now present First degree AV block no longer present T-wave abnormality no longer present Electronically Signed On 12-23-2024 15:59:02 EDT by DOUGLAS GLASS
--- NOTE | 2024-12-22 22:10 | CT_ITS ---
[address] [address] Patient Name: RASHARD TAN MRN: [id number] date: 1960 Sex: M Assigned Patient Location: ER Current Patient Location: ER Accession/Order Number: [id number] Exam Date: 12/22/2024 22:58 Report Date: 12/22/2024 23:48 At the request of: ELLYN MORATAYA MD Procedure: CT cervical spine wo con CT head/brain wo con, CT cervical spine wo con 12/22/2024 11:13 PM SIGNS AND SYMPTOMS: ^syncope TECHNIQUE:Multi-detector CT axial slices of the brain and cervical spine were obtained without IV contrast. Helical,sagittal, coronal, and 3-D reconstructions of the cervical spine were performed. CT was performed with one or more of the following dose reduction techniques: Automated exposure control, adjustment of the mA and/or kV according to patient size, or use of iterative reconstruction technique. COMPARISON: None. FINDINGS: Noncontrast head CT: There is no shift of the midline structures, acute intracranial bleeding, mass effects, or evidence of acute ischemia. There is mild age-related cortical atrophy. Atherosclerotic changes are noted in the intracranial segments of the internal carotid arteries. The ventricular system is normal in size. The brainstem and the cerebellum are unremarkable. Mild mucosal thickening is noted in the maxillary sinuses. The visualized intraorbital contents and the infratemporal soft tissues show no acute abnormality. The osseous structures in the skull base and the calvarium show no abnormality. Cervical spine: There is preservation of the vertebral body heights. There is mild disc height loss at C5-C6 with moderate to severe disc height loss at T6-7. 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 Degenerative changes are noted between the lateral masses of C1 and C2 on the right. Facet degenerative changes are present throughout. No fractures or dislocations are seen. The alignment of the cervical spine is normal. The craniocervical junction and atlantoaxial joint are within normal limits. The prevertebral soft tissues are within normal limits. Atherosclerotic changes are noted in the carotid bifurcations. Surgical clips are noted along the right side of the neck. The paraspinous soft tissues are within normal limits. The lung apices are unremarkable. CT/CT cervical spine wo con IMPRESSION: No acute intracranial pathology. 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 No acute cervical spine injury. Degenerative changes are noted throughout the cervical spine. Impression dictated by: Hector Mckinney M.D. 12/22/2024 11:48 PM Dictation Location: [facility]ITAL[facility] Electronically authenticated by: [id number] Y Date: 12/22/2024 23:48
--- NOTE | 2024-12-22 22:10 | CT_ITS ---
[address] [address] Patient Name: RASHARD TAN MRN: [id number] date: 1960 Sex: M Assigned Patient Location: ER Current Patient Location: ER Accession/Order Number: [id number] Exam Date: 12/22/2024 22:58 Report Date: 12/22/2024 23:48 At the request of: ELLYN MORATAYA MD Procedure: CT cervical spine wo con CT head/brain wo con, CT cervical spine wo con 12/22/2024 11:13 PM SIGNS AND SYMPTOMS: ^syncope TECHNIQUE:Multi-detector CT axial slices of the brain and cervical spine were obtained without IV contrast. Helical,sagittal, coronal, and 3-D reconstructions of the cervical spine were performed. CT was performed with one or more of the following dose reduction techniques: Automated exposure control, adjustment of the mA and/or kV according to patient size, or use of iterative reconstruction technique. COMPARISON: None. FINDINGS: Noncontrast head CT: There is no shift of the midline structures, acute intracranial bleeding, mass effects, or evidence of acute ischemia. There is mild age-related cortical atrophy. Atherosclerotic changes are noted in the intracranial segments of the internal carotid arteries. The ventricular system is normal in size. The brainstem and the cerebellum are unremarkable. Mild mucosal thickening is noted in the maxillary sinuses. The visualized intraorbital contents and the infratemporal soft tissues show no acute abnormality. The osseous structures in the skull base and the calvarium show no abnormality. Cervical spine: There is preservation of the vertebral body heights. There is mild disc height loss at C5-C6 with moderate to severe disc height loss at T6-7. 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 Degenerative changes are noted between the lateral masses of C1 and C2 on the right. Facet degenerative changes are present throughout. No fractures or dislocations are seen. The alignment of the cervical spine is normal. The craniocervical junction and atlantoaxial joint are within normal limits. The prevertebral soft tissues are within normal limits. Atherosclerotic changes are noted in the carotid bifurcations. Surgical clips are noted along the right side of the neck. The paraspinous soft tissues are within normal limits. The lung apices are unremarkable. CT/CT head/brain wo con IMPRESSION: No acute intracranial pathology. 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 No acute cervical spine injury. Degenerative changes are noted throughout the cervical spine. Impression dictated by: Hector Mckinney M.D. 12/22/2024 11:48 PM Dictation Location: [facility]ENTERE[facility] Electronically authenticated by: [id number] Y Date: 12/22/2024 23:48
--- NOTE | 2024-12-22 22:12 | ED.GENADUL1 ---
HPI HPI - General Adult General Chief complaint: Fall Stated complaint: FAll Time Seen by Provider: 12/22/24 21:31 Source: patient Mode of arrival: ambulance Limitations: no limitations History of Present Illness HPI narrative: This 64-year-old male with a history of diabetes with neuropathy and amputation of the left foot as well as recent amputation of several toes on the right foot is brought to the emergency department by EMS from home. The patient states he was getting ready to go to bed and everything went black. He allegedly passed out and fell onto his right side. He does not think he hit his head. He is not having any neck pain. He has pain in the right lateral hip area, right wrist and right proximal fibular area. He denies any antecedent chest pain or dizziness. He has no abdominal pain. He denies any neck or back pain. He has a large bulky splint on the right lower extremity and a less bulky wrap on the right foot which is apparent that amputations have been performed of the toes on the right foot. Dressings were not taken down as they were recently placed by podiatry. The patient was formally on dialysis and has a fistula in his right forearm. He is not on dialysis currently. Patient states he lost over 200 pounds, his diabetes became better controlled and he was able to stop dialysis. Related Data Home Medications ?Medication ?Instructions ?Recorded ?Confirmed montelukast 10 mg tablet 10 mg PO .QHS 01/28/23 10/23/24 rosuvastatin 20 mg tablet 20 mg PO .QHS 01/28/23 10/23/24 vitamin B complex and vitamin C 1 cap PO QDAY 01/28/23 10/23/24 no.20-folic acid 1 mg capsule (Renal Caps) bupropion HCl 300 mg 24 hr tablet, 300 mg PO QDAY 12/24/23 10/23/24 extended release finerenone 20 mg tablet (Kerendia) 20 mg PO QDAY 12/24/23 10/23/24 multivitamin with minerals-folic 1 tab PO QDAY 12/24/23 10/23/24 acid 400 mcg-lycopene 370 mcg tablet (One-A-Day Men's 50 Plus) sodium bicarbonate 325 mg tablet 325 mg PO TID 12/25/23 10/23/24 duloxetine 60 mg capsule,delayed 60 mg PO .QHS 08/26/24 10/23/24 release empagliflozin 25 mg tablet 25 mg PO DAILY 08/26/24 10/23/24 (Jardiance) famotidine 20 mg tablet 20 mg PO .QHS 08/26/24 10/23/24 ciprofloxacin HCl 500 mg tablet 500 mg PO Q24H 10/23/24 10/23/24 doxycycline monohydrate 100 mg 100 mg PO DAILY 10/23/24 10/23/24 capsule Previous Rx's ?Medication ?Instructions ?Recorded insulin aspart U-100 100 unit/mL 3 - 15 unit (0.03 - 0.15 mL) 12/26/23 (3 mL) subcutaneous pen (Novolog subcut ACHS #15 mL FlexPen U-100 Insulin aspart) insulin detemir U-100 100 unit/mL 30 unit (0.3 mL) subcut QHS 30 12/26/23 (3 mL) subcutaneous pen (Levemir days #9 mL FlexPen) Allergies Allergy/AdvReac Type Severity Reaction Status Date / Time celecoxib (From Celebrex) Allergy Unknown Unknown Verified 12/22/24 21:39 Opioid HPI Opioid Management Most Recent Opioid Data: Last Pain Scale 9 Today, 00:11 Last Pain Intensity 2 10/24/24, 10:32 Last MAR Pain Assessment 12/22/24, 22:37 Last ORT Total Score 0 10/24/24, 00:23 Last ORT Risk Category Low Risk 10/24/24, 00:23 Review of Systems ROS Status of ROS 10 or more systems reviewed and unremarkable except as noted in history and below [facility] Medical History (Updated 12/23/24 @ 00:30 by Malina Bingham MD) Ulcer of right second toe with necrosis of bone ?L97.514 - Non-pressure chronic ulcer of other part of right foot with necrosis of bone (ICD-10) Skin ulcer of second toe of right foot with necrosis of muscle ?L97.513 - Non-pressure chronic ulcer of other part of right foot with necrosis of muscle (ICD-10) Acute osteomyelitis of right foot ?M86.171 - Other acute osteomyelitis, right ankle and foot (ICD-10) Anemia in CKD (chronic kidney disease) ?N18.9 - Chronic kidney disease, unspecified (ICD-10) ?D63.1 - Anemia in chronic kidney disease (ICD-10) CKD (chronic kidney disease) stage 4, GFR 15-29 ml/min ?N18.4 - Chronic kidney disease, stage 4 (severe) (ICD-10) Type 2 diabetes mellitus with hyperglycemia ?E11.65 - Type 2 diabetes mellitus with hyperglycemia (ICD-10) Equinus contracture of left ankle ?M24.572 - Contracture, left ankle (ICD-10) Type 2 diabetes mellitus with diabetic 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 ?E11.42 - Type 2 diabetes mellitus with diabetic 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 (ICD-10) Type 2 diabetes mellitus with foot ulcer ?E11.621 - Type 2 diabetes mellitus with foot ulcer (ICD-10) ?L97.509 - Non-pressure chronic ulcer of other part of unspecified foot with unspecified severity (ICD-10) Ulcer of left foot with fat layer exposed ?L97.522 - Non-pressure chronic ulcer of other part of left foot with fat layer exposed (ICD-10) Ulcer of right foot with necrosis of bone ?L97.514 - Non-pressure chronic ulcer of other part of right foot with necrosis of bone (ICD-10) Cellulitis of left leg ?L03.116 - Cellulitis of left lower limb (ICD-10) Infection of toe ?L08.9 - Local infection of the skin and subcutaneous tissue, unspecified (ICD-10) Hyperglycemia ?R73.9 - Hyperglycemia, unspecified (ICD-10) Diabetic ulcer of left foot ?E11.621 - Type 2 diabetes mellitus with foot ulcer (ICD-10) ?L97.529 - Non-pressure chronic ulcer of other part of left foot with unspecified severity (ICD-10) DM type 2 (diabetes mellitus, type 2) ?E11.9 - Type 2 diabetes mellitus without complications (ICD-10) CKD (chronic kidney disease) ?N18.9 - Chronic kidney disease, unspecified (ICD-10) CKD (chronic kidney disease) ?N18.9 - Chronic kidney disease, unspecified (ICD-10) Chronic wound ?T14.8XXA - Other injury of unspecified body region, initial encounter (ICD-10) Immunocompromised ?D84.9 - Immunodeficiency, unspecified (ICD-10) Psoriasis ?L40.9 - Psoriasis, unspecified (ICD-10) Sepsis ?A41.9 - Sepsis, unspecified organism (ICD-10) Arteriovenous fistula of right upper extremity ?I77.0 - Arteriovenous fistula, acquired (ICD-10) Chronic kidney disease ?N18.9 - Chronic kidney disease, unspecified (ICD-10) Hyperlipidemia ?E78.5 - Hyperlipidemia, unspecified (ICD-10) Diabetes ?E11.9 - Type 2 diabetes mellitus without complications (ICD-10) Cellulitis of left leg ?L03.116 - Cellulitis of left lower limb (ICD-10) Surgical History History of transmetatarsal amputation of foot ?Z89.439 - Acquired absence of unspecified foot (ICD-10) History of appendectomy ?Z90.49 - Acquired absence of other specified parts of digestive tract (ICD-10) History of cholecystectomy ?Z90.49 - Acquired absence of other specified parts of digestive tract (ICD-10) Amputation of left great toe ?S98.112A - Complete traumatic amputation of left great toe, initial encounter (ICD-10) Family History Mother Family history of CHF (congestive heart failure) Family history of diabetes mellitus Family history of hypertension Grandfather Family history of stroke Social History (Updated 10/24/24 @ 00:49 by Felipa Mann RN) Within the past year, how often did you have a drink containing alcohol: never Within the past year, how many standard drinks containing alcohol did you have on a typical day: 1 or 2 Within the past year, how often did you have six or more drinks on one occasion: never Total score: 0 Score interpretation: A score less than 4 is consistent with normal alcohol consumption. Smoking status: Current some day smoker Second hand tobacco smoke exposure: No Non-prescribed substance use: denies use Previous occupational history: disabled Known occupational exposures/hazards: No Highest level of school completed/degree received: 11th grade Do you want help with school or training: No Are you now , , , , never or living with a partner: In a typical week, how many times do you talk on the telephone with family, friends, or neighbors: 3 or more times per week How often do you get together with friends or relatives: 3 or more times per week How often do you attend confucianist or restoration services: never Do you belong to any clubs or organizations such as confucianist groups unions, fraternal or athletic groups, or school groups: no Total score: 2 Score interpretation: A score of greater than or equal to 2 indicates the lowest level of social isolation. Little interest or pleasure in doing things: not at all Feeling down, depressed, or hopeless: not at all Feel stressed/tense/nervous/anxious/difficulty sleeping: not at all Do you think of yourself as: straight/heterosexual Gender Identity: male Exam Narrative Exam Narrative: Vital signs and Nursing Notes reviewed: Is afebrile with a normal pulse, normal blood pressure, he is not hypoxic with pulse ox of 97% on room air General: Awake, alert, oriented, no acute distress, lying comfortably on the stretcher-grimaces in pain when sitting up due to right hip pain HEENT: Normocephalic atraumatic, mucous membranes are moist and pink, eyes are clear, normal conjunctiva, vision is grossly intact, posterior pharynx is normal in appearance. Neck: Supple, no meningeal signs, no midline bony vertebral tenderness or step-off Chest: Lungs are clear to auscultation with good air entry, there is no wheezing rhonchi or rales appreciated no accessory muscle use, patient is speaking in complete sentences-no chest wall tenderness to palpation CVS: Regular rate and rhythm S1-S2, no murmurs rubs or gallops, pulses are brisk and equal bilaterally ABD: Soft, nondistended, nontender, no rebound guarding or rigidity, bowel sounds are normal, no pulsatile masses appreciated Extremities: Tenderness to the right distal radius and ulna with bony tenderness and deformity to distal radius. Patient is using his right hand to help pull himself to a seated position, there is tenderness with an abrasion and some mild swelling over the right proximal fibula. There is tenderness to palpation of the right side of the pelvis. There is no specific pain at the greater trochanter or medial inguinal area. The right leg is not shortened or externally rotated. There is a heavy packing on the right lower extremity from the knee to the foot status post amputation of several toes. The left lower extremity is also covered with an Aguilar wrap status post metatarsal amputation in the past. Skin: Normal in appearance without bruising and superficial abrasion to the right proximal fibular area on the right leg Neuro: No focal deficits; speech is clear, telephone operator chief strength is intact, patient is moving both upper extremities with discomfort when using right hand and wrist due to injury. Constitutional Vital Signs, click to edit/add: Last Vital Signs Temp 97.8 F 12/22/24 21:33 Pulse 79 12/22/24 21:33 Resp 18 12/22/24 21:33 BP 130/72 12/22/24 21:33 Pulse Ox 97 12/22/24 21:49 O2 Del Method Room Air 12/22/24 21:49 Course Vital Signs Vital signs: Vital Signs Temperature 97.8 F 12/22/24 21:33 Pulse Rate 79 12/22/24 21:33 Respiratory Rate 18 12/22/24 21:33 Blood Pressure 130/72 12/22/24 21:33 Pulse Oximetry 98 12/22/24 21:33 Oxygen Delivery Method Room Air 12/22/24 21:33 Temperature 97.8 F 12/22/24 21:33 Pulse Rate 79 12/22/24 21:33 Respiratory Rate 18 12/22/24 21:33 Blood Pressure 130/72 12/22/24 21:33 Pulse Oximetry 97 12/22/24 21:49 Oxygen Delivery Method Room Air 12/22/24 21:49 Medical Decision Making MDM Narrative Medical decision making narrative: This 64-year-old male with a history of diabetes, hypertension, chronic renal failure who is not currently on dialysis and is managed by his family physician is brought to the emergency department by EMS after he fell at home. The patient states he was getting up to go to bed when he blacked out. He landed on his right side. He presents for evaluation of right hip, right proximal fibular area and right wrist pain. He denies striking his head or neck but admits that he briefly lost consciousness. Upon EMS arrival he was awake and alert. Patient was taken to room 11 upon arrival. He denies any chest pain or shortness of breath prior to falling or after getting to the emergency department. An EKG done upon arrival is a sinus rhythm at 76 bpm with T wave changes in leads III and aVF with otherwise flattening of the T waves. This was compared to an EKG from 1 year ago dated 12/24/2023 in which he had normal-appearing T waves. An IV was placed and he was medicated with IV Dilaudid and Zofran for his hip and wrist pain. He was sent for CT scan of the head and neck as well as x-ray of the right wrist, right knee and right hip as well as chest x-ray. CT scan of the head and neck are negative for acute findings. X-ray of the right wrist shows a mildly displaced right distal radius fracture. X-ray of the right knee shows some soft tissue swelling but no acute fracture. X-ray of the right hip shows an intertrochanteric hip fracture. Labs were also reviewed. He has a normal white count and stable hemoglobin. He has an elevated troponin at 396. His BUN and creatinine are elevated today at 69 and 5.54. The case was discussed with Dr. Shah from [facility] orthopedics who will see the patient in consult for the wrist fracture and hip fracture. The case was also discussed with the hospitalist Dr. Yang and he is accepted for transfer to [facility]. We discussed the elevated troponin and will not start heparin at this time, his troponins will be repeated. The results of his labs, CT scan and x-rays were discussed with the patient and his who are agreeable to being transferred to [facility]. The patient's states he has been there before but she cannot recall why. He is not currently under the care of of nephrology. Medical Records Medical records reviewed: Yes I reviewed the patient's medical records Lab Data Lab results reviewed: Yes I reviewed the patient's lab results Labs: Lab Results 12/22/24 12/22/24 Range/Units 21:57 22:34 WBC 10.5 (4.0-11.0) 10^3/uL RBC 4.26 L (4.70-6.10) 10^6/uL Hgb 12.4 L (14.0-18.0) g/dL Hct 37.4 L (42.0-54.0) % MCV 87.8 (80.0-94.0) fL MCH 29.1 (25.9-34.0) pg MCHC 33.2 (29.9-35.2) g/dL RDW 14.1 (11.0-15.0) % Plt Count 235 (150-450) 10^3/uL MPV 9.3 L (9.5-13.5) fL Neut % (Auto) 69.4 (43.0-75.0) % Lymph % (Auto) 18.1 L (20.5-60.0) % [place] % (Auto) 6.7 (1.7-12.0) % Eos % (Auto) 4.4 (0.9-7.0) % Baso % (Auto) 0.5 (0.2-2.0) % Neut # (Auto) 7.3 H (1.4-6.5) 10^3/uL Lymph # (Auto) 1.9 (1.2-3.8) 10^3/uL [place] # (Auto) 0.7 (0.3-0.8) 10^3/uL Eos # (Auto) 0.5 (0.0-0.7) 10^3/uL Baso # (Auto) 0.1 (0.0-0.1) 10^3/uL Abs Immat Gran (auto) 0.09 H (0.00-0.03) 10^3/uL Imm/Tot Granulo (auto) 0.9 H (0.0-0.5) % Sodium 137 (136-145) mmol/L Potassium 5.5 H (3.5-5.1) mmol/L Chloride 102 (98-107) mmol/L Carbon Dioxide 19.0 L (21.0-32.0) mmol/L Anion Gap 21.5 BUN 69.0 H (7.0-18.0) mg/dL Creatinine 5.54 H* (0.70-1.30) mg/dL Est GFR ( Amer) 13 L (>=60 mL/min/1.73m^2) Est GFR (Non-Af Amer) 10 L (>=60 mL/min/1.73m^2) BUN/Creatinine Ratio 12.5 Glucose 295 H (74-106) mg/dL Calcium 9.4 (8.5-10.1) mg/dL Total Bilirubin 0.4 (0.2-1.0) mg/dL AST 50 H (15-37) U/L ALT 73 H (16-63) U/L Alkaline Phosphatase 103 (46-116) U/L Troponin I High Sens 396.0 H* (4.0-76.1) pg/mL Total Protein 7.6 (6.4-8.2) g/dL Albumin 3.1 L (3.4-5.0) g/dL Globulin 4.5 g/dL Albumin/Globulin Ratio 0.7 POC Glucose 251 H (74-106) mg/dL Imaging Data CT scan - head: Radiologist's impression: ITS Impressions Chest X-Ray 12/22/24 22:08 IMPRESSION: No acute cardiopulmonary pathology. Impression dictated by: Hector Mckinney M.D. 12/22/2024 11:35 PM Dictation Location: [facility]17 Electronically authenticated by: [id number] Y Date: 12/22/2024 23:35 Hip/Pelvis X-Ray 12/22/24 22:08 IMPRESSION: There is an intertrochanteric fracture of the right hip with mild varus angular deformity. Impression dictated by: Hector Mckinney M.D. 12/22/2024 11:34 PM Dictation Location: [facility] Electronically authenticated by: [id number] Y Date: 12/22/2024 23:34 Tibia/Fibula X-Ray 12/22/24 22:08 IMPRESSION: No fracture. Impression dictated by: Hector Mckinney M.D. 12/22/2024 11:42 PM Dictation Location: [facility]17 Electronically authenticated by: [id number] Y Date: 12/22/2024 23:42 Wrist X-Ray 12/22/24 22:08 IMPRESSION: There is an impacted distal radius fracture with slight dorsal tilt of the articular surface of the distal radius. There is accompanying soft tissue swelling. Impression dictated by: Hector Mckinney M.D. 12/22/2024 11:40 PM Dictation Location: [facility]17 Electronically authenticated by: [id number] Y Date: 12/22/2024 23:[address] 12/22/24 22:10 IMPRESSION: No acute intracranial pathology. 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 No acute cervical spine injury. Degenerative changes are noted throughout the cervical spine. Impression dictated by: Hector Mckinney M.D. 12/22/2024 11:48 PM Dictation Location: [facility]17 Electronically authenticated by: [id number] Y Date: 12/22/2024 23:[address] 12/22/24 22:10 IMPRESSION: No acute intracranial pathology. 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 No acute cervical spine injury. Degenerative changes are noted throughout the cervical spine. Impression dictated by: Hector Mckinney M.D. 12/22/2024 11:48 PM Dictation Location: [place] [address] Electronically authenticated by: [id number] Y Date: 12/22/2024 23:48 ECG Data Attestation: I personally reviewed and interpreted this ECG as follows: (Sinus rhythm at 76 bpm, normal axis, T wave inversions noted in leads III and aVF otherwise T waves are flat, no acute ST segment elevation) Discharge Plan Discharge Chief Complaint: Fall Clinical Impression: Syncope, Fracture of wrist, Closed fracture of right hip, Elevated troponin, Acute on chronic kidney failure, Contusion of lower leg, right Patient Disposition: General Acute Hospital Time of Disposition Decision: 00:29 Discharge Location: [facility] Mode of Transportation: EMS Procedures ED Procedure Instructions Procedures Procedures: Fracture care without manipulation; a volar splint was applied over heavy packing to the right upper extremity to immobilize the wrist and hand. Patient tolerated procedure well. He remains neurovascularly intact.
[2024-12-22] MEDS: HYDROMORPHONE HCL 1 MG/ML CARTRIDGE IV (22:37)
[2024-12-22 23:18] LABS: Hematocrit 37.4 % (42.0-54.0); Hemoglobin 12.4 g/dL (14.0-18.0); Immature Granulocytes Abs Auto 0.09 10^3/uL (0.00-0.03); Immature Granulocytes Pct Auto 0.9 % (0.0-0.5); Lymphocytes Absolute Auto 1.9 10^3/uL (1.2-3.8); Mean Corpuscular HGB Conc 33.2 g/dL (29.9-35.2); Mean Corpuscular Hemoglobin 29.1 pg (25.9-34.0); Mean Corpuscular Volume 87.8 fL (80.0-94.0); Platelet Count 235 10^3/uL (150-450); Red Blood Count 4.26 10^6/uL (4.70-6.10); White Blood Count 10.5 10^3/uL (4.0-11.0)
[2024-12-22 23:35] LABS: Alanine Aminotransferase 73 U/L (16-63); Albumin Globulin Ratio 0.7; Albumin Level 3.1 g/dL (3.4-5.0); Alkaline Phosphatase 103 U/L (46-116); Anion Gap 21.5; Aspartate Amino Transferase 50 U/L (15-37); Blood Urea Nitrogen 69.0 mg/dL (7.0-18.0); Calcium 9.4 mg/dL (8.5-10.1); Carbon Dioxide 19.0 mmol/L (21.0-32.0); Chloride 102 mmol/L (98-107); Estimated GFR (African America 13 (>=60 mL/min/1.73m^2); Estimated GFR (Non-African Ame 10 (>=60 mL/min/1.73m^2); Globulin 4.5 g/dL; Glucose 295 mg/dL (74-106); Potassium 5.5 mmol/L (3.5-5.1); Sodium 137 mmol/L (136-145); Total Protein 7.6 g/dL (6.4-8.2)
--- NOTE | 2024-12-22 23:39 | PC.NURSE ---
Critical lab results are cr 5.54 and trop 396
--- NOTE | 2024-12-22 23:40 | PC.NURSE ---
and RN aware of critical lab values
[2024-12-23] MEDS: MORPHINE SULFATE 4 MG/ML VIAL IV (00:11)
[2024-12-23 01:41] VITALS: BP 86/51; PULSE 82; O2SAT 99
== END 2024-12-23 02:24 | disposition short-term general hospital (02) ==
PROVIDERS: Emergency Provider Emergency Medicine; PCP Internal Medicine
DX: S72.141A Displaced intertrochanteric fracture of right femur, initial encounter for closed fracture (principal); S52.502A Unspecified fracture of the lower end of left radius, initial encounter for closed fracture; S80.11XA Contusion of right lower leg, initial encounter; W18.39XA Other fall on same level, initial encounter; E11.40 Type 2 diabetes mellitus with diabetic neuropathy, unspecified; N17.9 Acute kidney failure, unspecified; R55 Syncope and collapse; Z89.432 Acquired absence of left foot; Z89.421 Acquired absence of other right toe(s); Z79.84 Long term (current) use of oral hypoglycemic drugs; Z90.49 Acquired absence of other specified parts of digestive tract; F17.200 Nicotine dependence, unspecified, uncomplicated; E11.22 Type 2 diabetes mellitus with diabetic chronic kidney disease; I12.9 Hypertensive chronic kidney disease with stage 1 through stage 4 chronic kidney disease, or unspecified chronic kidney disease; N18.9 Chronic kidney disease, unspecified; R79.89 Other specified abnormal findings of blood chemistry
CPT/HCPCS: 29125; 36415; 70450; 71045; 72125; 73100; 73502; 73590; 80053; 84484; 85025; 93005; 96374; 96375; 99285; J1171; J2270; J2405

== ENCOUNTER 2025-02-01 11:37 | Outpatient (OUT) | payer BC, SELFPAY ==
--- NOTE | 2025-02-01 | XR_ITS ---
[facility] [place] [id number] Patient Name: RASHARD TAN MRN: [id number] date: 1960 Sex: M Assigned Patient Location: RAD Current Patient Location: [facility] Accession/Order Number: [id number] Exam Date: 02/01/2025 12:15 Report Date: 02/01/2025 13:28 At the request of: THMOAS SHARP DO Procedure: XR wrist RT min 3V RIGHT WRIST - 3 views CLINICAL HISTORY: Fracture Of Distal End Of Radius COMPARISON: Right wrist 12/22/2024 FINDINGS: No hardware complication. Fracture line is less conspicuous suggestive of healing response. Styloid process fracture of the ulna is unchanged. XR/XR wrist RT min 3V IMPRESSION: HEALING DISTAL RADIUS FRACTURE. Impression dictated by: Clayton Cuevas Jr., D.OVaishali 02/01/2025 1:28 PM Dictation Location: [employer] Electronically authenticated by: [id number] Y Date: 02/01/2025 13:28
--- NOTE | 2025-02-01 | XR_ITS ---
[facility] [place] [id number] Patient Name: RASHARD TAN MRN: [id number] date: 1960 Sex: M Assigned Patient Location: [facility] Current Patient Location: [facility] Accession/Order Number: [id number] Exam Date: 02/01/2025 12:15 Report Date: 02/01/2025 13:29 At the request of: THOMAS SHARP DO Procedure: XR hip RT 1V w/ pelvis Right hip 2 views. Reason for exam: Follow-up ORIF. Right hip 12/22/2024. FINDINGS: Patient's right hip hardware is partially visualized without hardware complication. Interval sclerosis involving the patient's fracture suggestive of healing response. There is stable sclerosis involving the right femoral head. XR/XR hip RT 1V w/ pelvis IMPRESSION: Healing right hip fracture. Impression dictated by: Brody Ramey Jr.OVaishali 02/01/2025 1:29 PM Dictation Location: [facility] Electronically authenticated by: [id number] Y Date: 02/01/2025 13:29
--- OUTSIDE RECORDS SUMMARY | 2025-02-01 11:40 | XMS_ITS | Clinical Summary ---
Author Organization [employer] tem Address [id number] [address] [place] [address] Care Team Providers Care Flight Operation Coordinator Name Role Phone Tod Charles DO, Charles [...] Active Problems Problem Noted Date Diagnosed Date End stage renal disease 01/24/2025 Unspecified trochanteric fra cture of right femur, subsequent encounter for closed fracture with routine healing 01/24/2025 Dependence on renal dialysis 01/24/2025 Peripheral vascular disease, unspecified 025 Acquired absence of left foot 01/24/2025 Acquired absence of right foot 01/24/2025 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 neuropathy, with long-term current use of insulin 01/24/2025 Hyperlipidemia 01/24/2025 Gastroesophageal reflux disease 01/24/2025 Psoriasis, unspecified 01/24/2025 Critical limb ischemia of le ft lower extremity with gangrene 02/27/2024 Assessment & Plan (02/27/2024 11:44 AM EDT): PVR Disc displacement, lumbar 05/28/2019 Overview (05/28/2019): Added automatically from request for surgery [id number] Cellulitis of foot, left 09/29/2017 Other idiopathic peripheral autonomic neuropathy 07/20/2016 COPD (chronic obstructive pulmonary disease) Encounters Date Type Department Care Team Description 01/19/2025 Continuing Care [facility] - Family Medicine [address] [place] [address] Colton Lamb DO Unspecified trochanteric fracture of right femur, subsequent encounter for closed fracture with routine healing (Primary Dx); Chronic obstructive pulmonary disease, unspecified COPD type ([facility]); End stage renal disease ([facility]); Dependence on renal dialysis; Peripheral vascular disease, unspecified; Acquired absence of left foot ([facility]); Acquired absence of right foot ([facility]); Type 2 diabetes mellitus with diabetic neuropathy, with long-term current use of insulin ([facility]); Hyperlipidemia, unspecified hyperlipidemia type; Gastroesophageal reflux disease, unspecified whether esophagitis present; Psoriasis, unspecified from Last 3 Months Immunizations Immunization Administration Dates Next Due Tdap [...] Sign Reading Time Taken Comments Blood Pressure 132/86 01/19/2025 9:28 PM EDT Pulse 77 01/19/2025 9:28 PM EDT Temperature 36.7 C (98.1 F) 01/19/2025 9:28 PM EDT Respiratory Rate 18 01/19/2025 9:28 PM EDT Oxygen Saturation 99% 01/19/2025 9:28 PM EDT Inhaled Oxygen Concentration - - Weight 111.4 kg (245 lb 9.6 oz) 01/19/2025 9:28 PM EDT Height 193 cm (6' 4 ) 01/19/2025 9:28 PM EDT Body Mass Index 29.9 01/19/2025 9:28 PM EDT Plan of Treatment Health Maintenance Due Date Last Done Comments Diabetic Ophthalmology Exam 1960 Statin Use: Cardiovascular 1960 Statin Use: Diabetic 1960 Depression Screening 1972 Adult BMI Follow Up Plan 02/04/1978 Diabetic Foot Exam 02/04/1978 Zoster (Shingles) Vaccine (1 of 2) 02/04/2010 COVID-19 Vaccine (3 - season) 2024, 10/03/2020 Influenza Vaccine 12/28/2024 01/29/2020, 05/27/2015 Adult BMI Screening 02/26/2025 01/19/2025 Tobacco Screening 02/26/2025 02/27/2024 DTaP,Tdap and Td Vaccines (2 - Td or Tdap) 02/10/2027 02/10/2017 Medical Devices Not on file Insurance [employer] Advance Directives * Full Code (Latest Code Status on File) Date Activated Date Inactivated Comments 09/30/2017 12:06 PM 09/30/2017 8:03 PM Care Teams Flight Operation Coordinator Relationship Specialty Start Date End Date Jose Baron Jr., [address] [place], [place] [id number] PCP - General Internal Medicine 02/10/17
--- OUTSIDE RECORDS SUMMARY | 2025-02-01 11:40 | XMS_ITS | Encounter Summary ---
Author Organization [employer] [facility] [employer] Address [id number] [address] [place] [address] Care Team Providers Care Aircraft Power Plant Assembler Name Role Phone Tod Charles DO, Charles L Primary Care Provider Encounter Details Date Type Department Care Team (Late st Contact Info) Description 01/19/2025 Continuing Care [facility] Internal Medicine - Family Medicine [address] [place] [address] Colton Lamb DO [address], [place] [address] Unspecified trochanteric fracture of right femur, subsequent encounter for closed fracture with routine healing (Primary Dx); Chronic obstructive pulmonary disease, unspecified COPD type ([facility]); End stage renal disease ([facility]); Dependence on renal dialysis; Peripheral vascular disease, unspecified; Acquired absence of left foot ([facility]); Acquired absence of right foot ([facility]); Type 2 diabetes mellitus with diabetic neuropathy, with long-term current use of insulin ([facility]); Hyperlipidemia, unspecified hyperlipidemia type; Gastroesophageal reflux disease, unspecified whether esophagitis present; Psoriasis, unspecified Social History Tobacco Use Types Packs/Day Years [...] on file documented as of this encounter Last Filed Vital Signs Vital Sign Reading [...] Mass Index 29.9 01/19/2025 9:28 PM EDT documented in this encounter Progress Notes * Colton Lamb, DO - 01/19/2025 11:59 PM EDT Patient Name: Alexander Lyman Date of : 1960 Date of Service: 01/19/2025 Facility: [facility] Type of Visit: Admission H&P Subjective Alexander Lyman is a 64 y.o. male seen today at [facility] facility for admission H&P. Alexander presents today from [facility] to [facility] for therapy. He has a fairly complex medical history. He recently fell and fractured his right hip. He had intensive inpatient therapy following his hospital stay at [facility]. He requires physical therapy as he can not go home in his current condition. He has had multiple amputations of toes which affects his gait. He also has end-stage renal disease and is on dialysis. He takes multiple medications. He is having a lot of pain in his right hip and he has chronic pain in both feet due to diabetic neuropathy.He has had multiple amputations. He is using oxycodone 10 mg as needed for pain with fair improvemen t. His appetite is okay. He has no new concerns to discuss with me today. Past Medical History: Diagnosis Date Chronic kidney disease Chronic musculoskeletal pain COPD (chronic obstructive pulmonary disease) ([facility]) Diabetes mellitus ([facility]) Fracture, clavicle History of MRSA (methicillin resistant Staphylococcus aureus) Neuropathy Renal failure Dialysis since 04/2014 Past Surgical History: Procedure Laterality Date APPENDECTOMY CHOLECYSTECTOMY DIALYSIS FISTULA CREATION Right arm INJECTION CAUDAL EPIDURAL WITH CATHETER, STEROID N/A 06/05/2019 Performed by Jefferson Bryant MD at [facility] Right 5th TONSILLECTOMY Family History Problem Relation Age of Onset Asthma Mother Allergies: Aspirin, Byetta [exenatide], Celebrex [celecoxib], and Synvisc [hylan g-f 20] Code Status: FULL CODE The following portions of the patient's history were reviewed and updated as appropriate: allergies, current medications, past family history, past medical history, past social history, past surgicalhistory, problem list, and medication reconciliation was completed including current medication andpost discharge medication. BP 132/86 Pulse 77 Temp 36.7 ??C (98.1 ??F) Resp 18 Ht 193 cm (6' 4 ) Wt 111.4 kg (245 lb9.6 oz) SpO2 99% BMI 29.90 kg/m?? Physical Exam Vitals reviewed. Constitutional: General: He is not in acute distress. Appearance: He is overweight. He is not ill-appearing. HENT: Head: Normocephalic. Cardiovascular: Rate and Rhythm: Normal rate and regular rhythm. Heart sounds: Normal heart sounds. No murmur heard. Pulmonary: Effort: Pulmonary effort is normal. No respiratory distress. Breath sounds: Normal breath sounds. No wheezing, rhonchi or rales. Abdominal: General: Bowel sounds are normal. Palpations: Abdomen is soft. Tenderness: There is no abdominal tenderness. Musculoskeletal: General: Deformity and signs of injury present. Cervical back: Neck supple. Lymphadenopathy: Cervical: No cervical adenopathy. Neurological: General: No focal deficit present. Mental Status: He is alert and oriented to person, place, and time. Motor: Weakness present. Gait: Gait abnormal. Summary / Assessment / Plan 1. Unspecified trochanteric fracture of right femur, subsequent encounter for closed fracture with routine healing 2. Chronic obstructive pulmonary disease, unspecified COPD type ([facility]) 3. End stage renal disease ([facility]) 4. Dependence on renal dialysis 5. Peripheral vascular disease, unspecified 6. Acquired absence of left foot ([facility]) 7. Acquired absence of right foot ([facility]) 8. Type 2 diabetes mellitus with diabetic neuropathy, with long-term current use of insulin ([facility]) 9. Hyperlipidemia, unspecified hyperlipidemia type 10. Gastroesophageal reflux disease, unspecified whether esophagitis present 11. Psoriasis, unspecified Admit to [facility]. Continue current regimen. Therapy evaluation. Full code. Continue dialysis. He is using high risk medication with benefit. Can not take NSAIDs. Continue midodrine 10 mg twice a day for hypotension. Good rehab potential. ELECTRONICALLY SIGNED BY: Colton Lamb DO documented in this encounter Plan of Treatment Not on file documented as of this encounter Visit Diagnoses Diagnosis Unspecified trochanteric fracture of right femur, subsequent encounter for closed fracture with routine healing- Primary Chronic obstructive pulmonary disease, unspecified COPD type ([facility]) End stage renal disease ([facility]) End stage renal disease Dependence on renal dialysis Renal dialysis status Peripheral vascular disease, unspecified Acquired absence of left foot ([facility]) Acquired absence of right foot ([facility]) Type 2 diabetes mellitus with diabetic neuropathy, with long-term current use of insulin ([facility]) Hyperlipidemia, unspecified hyperlipidemia type Gastroesophageal reflux disease, unspecified whether esophagitis present Psoriasis, unspecified documented in this encounter Care Teams Aircraft Power Plant Assembler Relationship Specialty Start Date End Date Jose Baron Jr., DO [address] [place] [address] PCP - General Internal Medicine 02/10/17 documented as of this encounter
--- OUTSIDE RECORDS SUMMARY | 2025-02-01 11:40 | XMS_ITS | Encounter Summary ---
Author Organization [facility] Address [id number] [address] [place] [address] Care Team Providers Care On Air Director Name Role Phone Tod Charles DO, Charles L Primary Care Provider Encounter Details Date Type Department Care Team (Late st Contact Info) Description 07/14/2020 Documentation [facility] Sign In [address] [place] [phone] Kishore Solorio MD [address] [place] [address] Social History Tobacco Use Types Packs/Day Years [...] documented as of this encounter Care Teams On Air Director Relationship Specialty Start Date End Date Jose Baron Jr., DO [address] [place] [address] PCP - General Internal Medicine 02/10/17 documented as of this encounter
--- OUTSIDE RECORDS SUMMARY | 2025-02-01 11:41 | XMS_ITS | Clinical Summary ---
Author Organization [facility] Healthcare Address [address] [place] [address] Care Team Providers Care Top Frame Maker Name Role Phone Jose Baron MD Primary Care Provider [phone] Social History Tobacco Use Types Packs/Day Years [...] Not on file Insurance BS Care Teams Top Frame Maker Relationship Specialty Start Date End Date Jose Baron MD [address] [place] [address] PCP - General Internal Medicine 09/07/24
--- OUTSIDE RECORDS SUMMARY | 2025-02-01 11:41 | XMS_ITS | Encounter Summary ---
Author Organization [facility] Address [address] [place] [address] Care Team Providers Care Skin Fitter Name Role Phone Unavailable Primary Care Provider [...]
--- OUTSIDE RECORDS SUMMARY | 2025-02-01 11:41 | XMS_ITS | Clinical Summary ---
Author Organization [facility] Address [address] [place] [address] Care Team Providers Care Youth Minister Name Role Phone Unavailable Primary Care Provider [...] COVID-19 Vaccine (1 - 2023-2 5 season) 2024 Influenza Vaccine (#1) 2024 HIB Vaccines Aged [...] Most Recently Relevant to Health Maintenance Insurance [facility]
--- OUTSIDE RECORDS SUMMARY | 2025-02-01 11:41 | XMS_ITS | Clinical Summary ---
Author Organization [facility] Address [address] [facility] [place] [address] Care Team Providers Care Foundation Stage Teacher Name Role Phone Unavailable Primary Care Provider Unavailabl e Source Comments The following information is NOT included in Care Everywhere downloads:Psychiatric notes, ECG results, Cardiac Rehab notes, Pulmonary Function notes, data from [employer] (includes but not limited toPregnancy data,audiograms, eye exams, pre-surgical evaluation notes, well-child exam data).[facility] Immunizations Immunization Administration Dates Next Due Influenza, injectable, high dose seasonal, trivalent, preservative free (AXL=317) 01/29/2020 Influenza, injectable, triva lent, preservative (BQR=214) 05/27/2015 Pneumococcal polysaccharide 23 Valent (PPSV23) (CVX=33) 05/27/2015,03/07/2011 Tdap (LII=783) 02/10/2017 Social History Tobacco Use Types Packs/Day [...] 60+ years) 2020 COVID-19 Vaccine (3 - 2024- season) 2024, 10/03/2020 Influenza Vaccine (#1) 2024 01/29/2020, 2015 Tetanus (Td or Tdap) Booster 02/10/2027 02/10/2017 RSV vaccine (adult) (1 - 1-d ose 75+ series) 02/04/2035 Tdap Booster Completed 02/10/2017 Insurance SP/UNINSURED on file
--- OUTSIDE RECORDS SUMMARY | 2025-02-01 11:41 | XMS_ITS | Encounter Summary ---
Author Organization [facility] Address [address] [place] [address] Care Team Providers Care Cylinder Press Operator Helper Name Role Phone Jose Braon MD Primary Care Provider [phone] Encounter Details Date Type Department Care Team (Late st Contact Info) Description 11/19/2023 Clinisync Result Encounter [facility] External Department Unsolicited Ajay Archer MD [address] [place] [address] Social History Tobacco Use Types Packs/Day Years [...] EDT Narrative 11/19/2023 5:27 PM EDT The [address] [address] Ultrasound Report Signed Patient: RASHARD LYMAN MR#: [id number] : 1960 Acct:[id number] Age/Sex: 63 / M ADM Date: 11/19/23 Loc: US Attending Dr: Ajay Archer M.D. Ordering Physician: Ajay Archer M.D. Date of Service: 11/19/23 Procedure(s): US venous doppler LE LT Accession Number(s): [id number] cc: Imer Zambrano D.P.M.; Ajay Archer M.D. [place] [id number] Patient Name: RASHARD LYMAN MRN: [id number] date: 1960 Sex: M Assigned Patient Location: US Current Patient Location: US Accession/Order Number: [id number] Exam Date: 11/19/2023 16:06 Report Date: 11/19/2023 [...] M.D. Signed By: 11/19/231726 DD/ 23 TD/TT: Web Production Manager: Procedure Note Radiology, Radiologist, MD - 11/19/2023 The [place] [id number] Ultrasound Report Signed Patient: RASHARD LYMANMR#: [id number] : 1960Acct:[id number] Age/Sex: 63 / MADM Date: 11/19/23 Loc: US Attending Dr: Ajay Archer M.D. Ordering Physician: Ajay Archer M.D. Date of Service: 11/19/23 Procedure(s): US venous doppler LE LT Accession Number(s): [id number] cc: Imer Zambrano D.P.M.; Ajay Archer M.D. [place] [address] Patient Name: RASHARD LYMAN MRN: [id number] date: 1960 Sex: M Assigned Patient Location: US Current Patient Location: US Accession/Order Number: [id number] Exam Date: 11/19/2023 16:06 Report Date: 11/19/2023 [...] Venegas M.D. Signed By:11/19/231726 DD/ 23 TD/TT: Web Production Manager: us Ajay Archer MD [facility] Final Result documented in this encounter Visit Diagnoses Not on filedocumented in this encounter Care Teams Cylinder Press Operator Helper Relationship Specialty Start Date End Date Jose Baron MD [facility] [place] [id number] PCP - General Internal Medicine 09/07/24 documented as of this encounter
--- OUTSIDE RECORDS SUMMARY | 2025-02-01 11:41 | XMS_ITS | Patient Health Record ---
Author Organization [facility] Address [address] [place] [address] Care Team Providers Care Operations Forester Name Role Phone William SIGALA, Franklin Primary Care Provider Yanna flores Results Component Value Reference Range Notes Fungus Stain Reviewed date:10/26/2024 09:11:22 PM Interpretation: Performing Lab: Notes/Report: Comment right hallux [facility] , Fungus Stain See Below For Report Fungus Stain Fungus Stain Please refer to the following specimen for additional lab results. Fungus Stain Fungus Stain SEE: [phone] Fungus S tain Performing Lab: see note SEE REPORT - Sprinkling System Installer Id information not found for OBX-specific web content producer legend LC - [facility] LB Fungus (Mycology) Culture Reviewed date:10/26/2024 09:11:22 PM Interpretation: Performing Lab: Notes/Report: Comment right hallux [facility] , Fungus (Mycology) Culture See Below For Report Fungus (Mycology) Culture Please refer to the following specimen for additional lab results. Fungus (Mycology) Culture SEE: [id number] Fungus (Mycology) Culture Please refer to the following specimen for additional lab results. Performing Lab: see note SEE REPORT - Sprinkling System Installer Id information not found for OBX-specific web content producer legend LC - [facility] LB Gram Stain Result [...] Gram Stain Result Performed at: [facility] Gram Stain Result WILL FOLLOW Gram Stain Result [address] [place], [place] [id number] Gram Stain Result WILL FOLLOW Gram Stain Result Sawdust Drier: Phyllis Brian PhD, Phone: [phone] Gram Stain Result WILL FOLLOW Performing Lab: see note SEE REPORT - Sprinkling System Installer Id information not found for OBX-specific web content producer legend LC - [facility] LB Tissue Culture Reviewed date:10/26/2024 09:11:22 PM Interpretation: Performing Lab: Notes/Report: [facility] , Tissue Culture See Below For Report Tissue Culture Isolated WILL FOLLOW O:BETAGB Tissue Culture Tissue Culture Isolated WILL FOLLOW O:BETAGB Tissue Culture Specimen has been received and testing has been initiated. Tissue Culture Isolated WILL FOLLOW O:BETAGB Tissue Culture Organism: Beta hemolytic Strep group B : Tissue Culture Isolated [...] for additional lab results. Tissue Culture SEE: [phone] Tissue Culture Please refer to the following specimen for additional lab results. Performing Lab: see note SEE REPORT - Sprinkling System Installer Id information not found for OBX-specific web content producer legend LC - [facility] LB MAGNESIUM Reviewed date:10/25/2024 01:27:08 PM Interpretation: Performing Lab: Notes/Report: [facility] , Magnesium 2.4 1.8-2.4 mg/dL Performing Lab: see note ML - [facility] LB Venous Blood Gas Reviewed date:10/25/2024 01:27:08 PM Interpretation: Performing Lab: Notes/Report: [facility] , pH VBG 7.250 7.330-7.430 PCO2 VBG 31.6 40.0-52.0 mmHg Performing Lab: see note ML - [facility] LB CBC AUTO DIFF Reviewed date:10/26/2024 09:11:22 PM Interpretation: Performing Lab: Notes/Report: [facility] , White Blood Count 12.5 4.0-11.0 [...] 10 3/uL Performing Lab: see note - [facility] LB CBC AUTO DIFF Reviewed date:10/25/2024 01:27:08 PM Interpretation: Performing Lab: Notes/Report: [facility] , White Blood Count 12.2 4.0-11.0 [...] 9.1 9.5-13.5 fL Performing Lab: see note - [facility] LB XR foot RT min 3V Reviewed date:10/26/2024 09:11:22 PM Interpretation: Performing Lab: Notes/Report: Source Facility: [place] [address] [place] [address] XRay Report Signed Patient: RASHARD LYMAN MR#: [id number] : 1960 Acct:[id number] Age/Sex: 64 / M ADM Date: 08/26/24 Loc: [place] 229-[address]: Ajay Vizcaino M.D. Ordering Physician: Chino Zambrano D.P.M. Date of Service: 08/28/24 Procedure(s): XR foot RT min 3V Accession Number(s): [id number] cc: Chino Zambrano D.P.M.; GABRIEL JUAREZ D.O. The [place] [address] Patient Name: RASHARD LYMAN MRN: [id number] date: 1960 Sex: M Assigned Patient Location: [place] Current Patient Location: [place] Accession/Order Number: [id number] Exam Date: 08/28/2024 11:46 Report Date: 08/28/2024 [...] Jr., D.OVaishali 08/28/2024 11:47 AM Dictation Location: [place] [address] Electronically authenticated by: [id number] Y Date: 08/28/2024 11:47 Dictated By: Clayton Cuevas M.D. Signed By: 08/28/24 1150 DD/ 1147 TD/TT: Topographical Field Assistant: Acid Fast Culture Reviewed date:10/26/2024 09:11:22 PM Interpretation: Performing Lab: Notes/Report: Comment right hallux [facility] , Acid Fast Culture See Below For Report Specimen has been received and testing has been initiated. Acid Fast Culture Acid Fast Culture Performed at: [facility] Specimen has been received and testing has been initiated. Acid Fast Culture Acid Fast Culture [address] [place], [place] [id number] Specimen has been received and testing has been initiated. Acid Fast Culture Acid Fast Culture Sawdust Drier: Phyllis Brian PhD, Phone: [phone] Specimen has been received and testing has been initiated. Acid Fast Culture Performing Lab: see note SEE REPORT - Sprinkling System Installer Id information not found for OBX-specific web content producer legend LC - [facility] LB Acid [...] Lab: see note LC - [facility] LB Venous Blood Gas Reviewed date:10/26/2024 09:11:22 PM Interpretation: Performing Lab: Notes/Report: [facility] , pH VBG 7.296 7.330-7.430 PCO2 VBG 30.8 40.0-52.0 mmHg Performing Lab: see note ML - [facility] LB PROF 14(COMP METB) Reviewed date:10/26/2024 09:11:22 PM Interpretation: Performing Lab: Notes/Report: [facility] , Sodium 135 136-145 mmol/L Potassium [...] 0.3 Performing Lab: see note ML - [facility] LB MAGNESIUM Reviewed date:10/26/2024 09:11:22 PM Interpretation: Performing Lab: Notes/Report: [facility] , Magnesium 2.3 1.8-2.4 mg/dL Performing Lab: see note ML - [facility] LB CRP Reviewed date:10/26/2024 09:11:22 PM Interpretation: Performing Lab: Notes/Report: [facility] , C Reactive Protein 23.66 <=0.50 mg/dL Performing Lab: see note - [facility] LB Manual Differential Reviewed date:10/25/2024 01:27:08 PM Interpretation: Performing Lab: Notes/Report: [facility] , Segmented Neutrophils % Manual 70.0 [...] 10 3/uL Performing Lab: see note - [facility] LB PROF 14(COMP METB) Reviewed date:10/25/2024 01:27:08 PM Interpretation: Performing Lab: Notes/Report: [facility] , Sodium 131 136-145 mmol/L Potassium [...] 0.3 Performing Lab: see note ML - [facility] LB MAGNESIUM Reviewed date:10/25/2024 01:27:08 PM Interpretation: Performing Lab: Notes/Report: [facility] , Magnesium 2.2 1.8-2.4 mg/dL Performing Lab: see note ML - [facility] LB CRP Reviewed date:10/25/2024 01:27:08 PM Interpretation: Performing Lab: Notes/Report: [facility] , C Reactive Protein 24.31 <=0.50 mg/dL Performing Lab: see note ML - [facility] LB Reason For Referral No Information Medications [...] ulcer due to type 2 diabetes mellitus (5366053823791) Type 2 diabetes mellitus with foot ulcer (E11.621) Active confirmed Problem 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) Active confirmed Problem Chronic ulcer of foot (489141231) 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) Active confirmed Problem Contracture of joint of left ankle (disorder) (645481415857452) Contracture, left ankle (M24.572) Active confirmed Problem Hyperlipidemia (04797380) Hyperlipidemia (E78.5) Active confirmed Problem Peripheral venous insufficiency (12858631) Venous insufficiency (I87.2) Active confirmed Problem Chronic kidney disease (091715755) CKD (chronic kidney disease) (N18.9) Active confirmed Problem Chronic ulcer of foot (627839343) 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) Active confirmed Problem Acquired equinus deformity of left foot (M21.6X2) Active confirmed Problem Delayed healing of surgical wound (finding) (420698773) Delayed surgical wound healing, subsequent encounter (T81.89XD) Active confirmed Problem Delayed healing of surgical wound (finding) (759488874) Delayed surgical wound healing (T81.89XA) Active confirmed Problem Polyneuropathy due to type 2 diabetes mellitus (161875896) Diabetes mellitus with 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 (E11.42) Active confirmed Problem Foot ulcer due to type 2 diabetes mellitus (2396728164266) Diabetes mellitus with foot ulcer due to multiple causes (E11.621) Active confirmed Problem 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
--- OUTSIDE RECORDS SUMMARY | 2025-02-01 11:49 | XMS_ITS | CCD ---
Author Organization [facility] Care Team Providers Care Adult Basic Education Manager Name Role Phone Jose Juarez Primary Care Provider Eugene Morel Admit Provider [phone] Eugene Morel Attending Provider [phone] Gordon Ewing Attending Provider [phone] Patria Cheung Attending Provider SAVANNAH REYNOLDS Admitting Unavailable SAVANNAH REYNOLDS Attending Unavailable JOSE JUAREZ Primary Care Unavailable JOSE UJAREZ Referring Unavailable AL Procedure Practitioner Unavailab TRISHA Ozuna Surgeon Unavailable NIMA WYNNE Surgeon Unavailable AL Procedure Practitioner Unavailab Jose Andres Primary Care Provider Eugene Morel Admit Provider [phone] Gordon Ewing Attending Provider Patria Cheung Attending Provider [phone] Latrice Lehman Attending Provider [phone] PROVIDER, UNKNOWN Attending Unavailable PROVIDER, UNKNOWN [...] ELLIOTT Admitting Unavailable NEFCY, PETER Consulting Unavailable ALLYONE, DR RIOS Primary Care Unavailable VALONE, DR RIOS Consulting Unavailable VALONE, DR RIOS Admitting Unavailable VALONE, DR RIOS Attending Unavailable VALONE, DR RIOS Primary Care Unavailable VALONE, DR RIOS Admitting Unavailable VALONE, DR RIOS Attending Unavailable VALONE, DR RIOS Consulting Unavailable HIGHLANDER, CHINO Hopson Consulting Unavailable WILHELM, ERICKA Consulting Unavailable FAWWAD, MOSES H Admitting Unavailable [...] Unavailable VALONE, DR RIOS Primary Care Unavailable TRCAY COE Attending Unavailable CAROLINTRACY LIRA Admitting Unavailable VALONE, DR RIOS Primary Care Unavailable HIGHLANDER, CHINO Hopson Attending Unavailable HIGHLANDER, CHINO Hopson Admitting Unavailable VALONE, DR RIOS Primary Care Unavailable HIGHLANDER, CHINO Hopson Admitting Unavailable HIGHLANDER, CHINO Hopson Attending Unavailable VALONE, DR RIOS Primary Care Unavailable CAROLIN, TRACY Attending Unavailable TRACY COE Admitting Unavailable VALONE, [...] VALONE, DR RIOS Primary Care Unavailable HIGHLANDER, CHNIO Hopson Attending Unavailable HIGHLANDER, PETER D Admitting Unavailable VALONE, DR RIOS Primary Care Unavailable HIGHLANDER, CHINO Hopson Attending Unavailable VALONE, DR RIOS Primary Care Unavailable HIGHLANDER, CHINO D Admitting Unavailable VALONE, DR RIOS Primary Care Unavailable HIGHLANDER, CHINO Hopson Attending Unavailable ZIEBER, DR PRISCA Tilley Consulting Unavailable HIGHLANDER, CHINO Hopson Admitting Unavailable HIGHLANDER, CHINO Hopson Consulting Unavailable KERVIN ., VIDAL SAHNI Consulting Unavailable JERRY AGARWAL Consulting Unavailable HUNG GARCIA Consulting Unavailable [...] CHINO Hopson Consulting Unavailable HIGHLANDER, CHINO Hopson Admitting Unavailable HIGHLANDER, CHINO Hopson Consulting Unavailable HIGHLANDER, CHINO Hopson Attending Unavailable VALONE, DR RIOS Primary Care Unavailable ERICKA WILHELM Consulting Unavailable SU ., DR CARLOS [...] CHINO Hopson Admitting Unavailable HIGHLANDER, CHINO Hopson Referring Unavailable PURVIOFOSMANY, JUANCARLOS Primary Care Unavailable FALLON, JUANCARLOS Primary Care Unavailable VALONE, JOSE Corea Referring Unavailable VALONE JR, JOSE Corea Referring Unavailable VALONE JR, JOSE Anmol Primary Care Unavailable VALONE JR, JOSE Anmlo Referring Unavailable VALONE JR, JOSE Anmol Primary [...] VALONE JR, JOSE Anmol Primary Care Unavailable HIGHLANDER, CHINO Hopson Referring Unavailable VALONE JR, JOSE Anoml Primary Care Unavailable VALONE JR, JOSE L Referring Unavailable VALONE JR, JOSE Anmol Primary Care Unavailable VALONE JR, JOSE Anmol Referring Unavailable VALONE JR, JOSE Anmol Primary Care Unavailable VALONE JR, JOSE Anmol Referring Unavailable VALONE JR, JOSE Anmol Primary Care Unavailable Valone Jr., Jose MAE Primary Care Provider [facility] DPM, Chino Hopson Attending Provider Kenya DPM, Chino Hopson Attending Provider [phone] [facility] DPM, Chino Hopson Attending Provider [phone] Jose Juarez JR Primary Care Provider Celia SIGALA, Enrique Admit Provider Lanie SIGALA, Leno Jennings Other Provider Leigh SIGALA, Carie Other Provider Fransisco AGUSTIN, Love Other Provider Unavailable Lester SIGALA, Ari Attending Provider Ari Batista MD Other Provider [phone] Lester NIETO-C, Alyssia Tilley Other Provider Jesus SIGALA, Nima Gan Other Provider Leonardo SIGALA, Benjamin Richter Other Provider Maite SIGALA, Luis Enrique Hopson Other Provider Pablo SIGALA, Nir Dennison Other Provider Roger MAE, Yasonia Other Provider London SIGALA, Mya Other Provider Ronald SIGALA, Clayton Other Provider Camila GOOD, Aleta Other Provider [phone] Raad SIGALA, Doc Hopson Other Provider Kami SIGALA, Raimundo Attending Provider Ronald SIGALA, Clayton Admit Provider Clayton Cardenas MD Attending Provider Ingrid RUBIO, Marlena Other Provider Unavailable Neelam RUBIO, Yudy Other Provider Unavailable Asif RN, Denise Other Provider Unavailable Rafat RN, Diana Other Provider Unavailable Dimas RNMeme Other Provider Unavailable Ronald RUBIO, Brigitte Other Provider Unavailable Sukumar Patricio MD Other Provider Doug Joseph DO Other Provider Billy SIGALA, Dinesh Other Provider Eugene Morel DO Other Provider Celia SIGALA, Enrique Other Provider Lzia Rod MD Other Provider [phone] Bryan Cordova DO Other Provider Dewayne Godwin MD Other Provider Unavailable Ita Orellana APRN Other Provider Vishal Aguirre MD Other Provider Krystal Rodriguez MD Other Provider Unavailable Henrry Manning MD Other Provider Bryan James DO Other Provider Idalia Bryan MD Other Provider Nazario Baez MD Other Provider Mathew NIETO-C, Patrciia Sanchez Other Provider Nick Jerez APRN Other Provider Unavailable Toribio Best MD Other Provider David Houston MD Other Provider Ac Tineo MD Other Provider Unavailable Son Hampton DO Other Provider Ghislaine Fields APRN Other Provider Zaid June DO Other Provider [phone] Tye SIGALA, Luz Maria Dennison Other Provider Angelina Ren APRN Other Provider Stefany Herring APRN Other Provider Willian Soto MD Other Provider Unavailable Jerry Butler MD Other Provider Cici Reilly MD Other Provider Ericka Otto APRN Other Provider Unavailable Talia Pinedo MD Other Provider Clayton Ramsey MD Other Provider Dewayne Akbar MD Other Provider Josemanuel Talavera MD Other Provider Mary Pichardo APRN Other Provider Bolzan-Basilia FLORENTINO, Shon Other Provider Alanis RUBIO, Fanta Other Provider Unavailable Kike Pollack MD Other Provider Mabel NIETO-CElizabeth Other Provider Unavailable Raimundo Mcclure MD Other Provider Aleta Jensen APRN Attending Provider Larry Charles DO, Charles L Primary Care Provider Chino Elliott Admitting Unavailable Chino Elliott Attending Unavailable Chino Elliott Attending Unavailable Chino Elliott Admitting Unavailable Enrique Yang Admitting Unavailable Jose Juarez Primary Care Unavailable Carie Abraham Consulting Unavailable Phillip Duran Attending Unavailable Love Moody Consulting Unavailable Ari Batista Consulting Unavailable Alyssia Jacobo Consulting Unavailable Nima Lee Consulting Unavailable Benjamin Patterson Consulting UnavailLuis Enrique Garg Consulting Unavailable Nir Shah II Consulting Unavailrodrigue Callahan, Mya Consulting Unavailable Clayton Cardenas Consulting Unavailable Camila Aleta Consulting Unavailable Doc Shankar Consulting Unavaila Jose Berrios Primary Care Unavailable Clayton Cardenas Attending Unavailable Clayton Cardenas Admitting Unavailable Marlena Quintero Consulting Unavailable Yudy Richter Consulting Unavailable Denise Gold Consulting Unavailable Diana Douglass Consulting Unavailable Meme Cochran Consulting Unavailable Brigitte Cardenas Consulting Unavailable Sukumar Patricio Consulting Unavailable Doug Joseph Consulting Unavailable Dinesh Cervantes Consulting Unavailable Eugene Morel Consulting UnavailKota Salazari Consulting Unavailable Liza Rod Consulting Unavailable Bryan Cordova Consulting Unavailable Dewayne Godwin Consulting Unavailable Ita Orellana Consulting UnavailVishal Pulido Consulting Unavailable Krystal Rodriguez Consulting Unavailable Henrry Manning Consulting Unavailable Bryan James Consulting Unavailable Idalia Bryan Consulting Unavailable Nazario Baez Consulting Unavailable Patricia Carmona Consulting Unavailable Nick Jerez Consulting Unavailable Toribio Best Consulting Unavailab David Menendez Consulting Unavailable Ac Tineo Consulting Unavailable Son Hampton Consulting Unavailable Ghislaine Fields Consulting Unavailable Zaid June Consulting Unavailable Luz Maria Gamble Consulting Unavailable Angelina Ren Consulting Unavailable Stefany Herring Consulting Unavailable Willian Soto Consulting Unavailable Jerry Butler Consulting Unavailable Phillip Duran Consulting Unavailable Leno Dela Cruz Consulting Unavailable Cici Reilly Consulting Unava Ericka Judd Consulting Unavailable Talia Pinedo Consulting Unavailable Clayton Ramsey Consulting Unavailable Dewayne Akbar Consulting Unavailable Josemanuel Talavera Consulting Unavailable Mary Pichardo Consulting Unavailable Bolzan-BasiliaNathanaellettemanuel Consulting Unavaila Fanta Benites Consulting Unavailable Kike Pollack Consulting Unavailable Elizabeth Monroe Consulting Unavailable Carie Abraham Consulting Unavailable Raimundo Mcclure Consulting Unavailable Unavailable Unavailable Unavailable Allergies Allergy Classification Reported Allergen(s) Allergy Type Date of Onset Reaction(s) Facility exenatide (1 source) exenatide Drug Allergy 07-14-19 [facility] NSAIDs (5 sources) celecoxib; Translations: [Celebrex] Drug Allergy 07-14-19 21 Difficulty Breathing [facility] Phenolphthalein (1 source) Phenolphthalein Drug Allergy 07-14-19 21 [facility] (11 sources) celecoxib; Translations: [celecoxib] Drug Allergy 07-21-19 17 Difficulty Breathing, bad for kidney, Difficulty Breathing, bad for kidney [facility] Rep[facility] (9 sources) Aspirin; Translations: [ASPIRIN] Drug Allergy 07-21-19 17 bad for kidney [facility] (3 sources) Amoxicillin Drug Allergy 07-09-19 [facility] (1 source) celecoxib Drug Allergy 07-09-19 20 [facility] (1 source) exenatide Drug Allergy 07-09-19 20 [facility] (1 source) Phenolphthalein Drug Allergy 07-09-19 20 [facility] (4 sources) exenatide; Translations: [EXENATIDE] Drug Allergy 03-24-20 17 [facility] (4 sources) NIKLAN G- 20; Translations: [-] Propensity to adverse reactions to drug (disorder) 07-21-19 [facility] (2 sources) exenatide Drug Allergy 09-14-19 [facility] (2 sources) OXcarbazepine Drug Allergy 09-14-19 [facility] (1 source) Aspirin Drug Allergy 12-24-19 [facility] Repository Medications Current Medications Medication Drug Class(es) Dates Sig (Normalized) Sig (Original) acetaminophen 500 mg oral tablet (1 source) Start: 01-15-2025 take 2 tablets by mouth three times daily Albuterol Sulfate (11 sources) beta2-Adrenergic Agonist Start: 12-31-2018 take 1 [...] MG Oral Daily January 05, 2019 2:10pm B Complex And C 20-Folic Acid (Renal Caps) 1 mg Capsule (3 sources) Start: 08-18-2020 take 1 capsule by mouth once daily B Complex With C 20-Folic Acid (Renal Caps) 1 mg Capsule (5 sources) Start: 08-18-2020 take 1 capsule by mouth once daily B Complex With C 20-Folic Acid (Renal Caps) 1 mg Capsule Active 1 CAP PO Daily August 18, 2020 9:20pm Start: 08-18-2020 take 1 capsule by mo [facility] once daily B Complex With C 20-Folic Acid (Renal Caps) 1 mg Capsule Active 1 CAP PO Daily August 18, 2020 12:00am biotin 5 mg disintegrating oral tablet (3 sources) Start: 09-30-2017 take 5000 ug by mouth twice daily Biotin Active 5000 MCG Oral Twice daily September 30, 2017 6:18pm biotin 5,000 mcg tablet,disintegrating Dissolve 10,000 mcg on tongue 2 (two) times a day. Active 24 hr buPROPion hydrochlorid e 300 mg extended release oral tablet (11 sources) Aminoketone Start: 12-23-2024 take 1 tablet by regan once daily Start: 09-30-2017 take 150 mg by mouth once sohan y Bupropion Hcl Active 150 MG Oral Daily September 30, 2017 6:19pm Start: 09-30-2017 [facility] buPROPion SR (WELLBUTRIN SR) 150 mg 12 hr tablet Take 1 tablet (150 mg total) by mouth in the morning. Active colesevelam hydrochloride 625 mg oral tablet (11 sources) Bile Acid Sequestrant Start: 09-30-2017 take 3 tablets by mouth three times daily at mealtime Colesevelam (Welchol) 625 mg Tablet Active 1875 MG PO THREE TIMES DAILY WITH MEALS September 30, 2017 6:42pm Start: 09-30-2017 take 1250 mg by mout h three times daily at mealtime Colesevelam Active 1250 MG Oral THREE TIMES DAILY WITH MEALS September 30, 2017 6:42pm Start: 09-30-2017 End: 12-29-2024 take 3 tablets by mouth twice daily at mealtime Colesevelam (Welchol) 625 mg Tablet Discontinued 1875 MG PO TWICE DAILY WITH MEALS September 30, 2017 12:00am December 29, 2024 12:20pm colesevelam (WEL CHOL) 625 mg tablet Take 650 mg by mouth Medrol Dose Pack scheduling ONLY. Active 1 ml darbepoetin ml 0.06 mg/ml injection (1 source) Erythropoiesis-stimulating Agent Start: 01-15-2025 take 60 ug intravenously every week docusate sodium 100 mg oral capsule (12 sources) Start: 01-15-2025 take 1 capsule by mouth twice daily Start: 12-31-2018 take 100 mg by mouth twice daily Docusate Sodium Active 100 MG Oral Twice daily December 31, 2018 3:14pm Start: 09-30-2017 End: 11-08-2017 take 1 capsule by mouth twice daily Docusate Sodium (Colace) 100 mg Capsule Discontinued 100 MG PO Twice daily September 30, 2017 12:00am November 08, 2017 1:27pm DULoxetine 60 mg delayed release oral capsule (17 sources) Serotonin and Norepinephrine Reuptake Inhibitor Start: 08-18-2020 take 1 capsule by mouth once daily Start: 09-30-2017 End: 12-31-2018 take 1 capsule by mouth at bedtime Duloxetine 30 mg capsule,delayed release(DR/EC) Discontinued 30 MG PO Bedtime September 30, 2017 12:00am December 31, 2018 3:08pm famotidine 40 mg oral tablet (12 sources) Histamine-2 Receptor Antagonist Start: 08-18-2020 Start: 08-18-2020 take 1 tablet by regan th twice daily Start: 09-30-2017 take 20 mg by mouth twice sohan y Famotidine Active 20 MG Oral Twice daily September 30, 2017 6:23pm Finerenone (2 sources) Start: 12-23-2024 take 1 tablet by mouth once daily folic acid 1 mg oral tablet (3 sources) Start: 12-31-2018 take 1 mg by mouth once daily Folic Acid Active 1 MG Oral Daily December 31, 2018 3:14pm ALL DAYS EXCEPT SATURDAY heparin sodium, porcine 5000 unt/ml injectable solution (1 source) Unfractionated Heparin, Anti-coagulant Start: 01-15-2025 inject 5000 [IU] by subcutaneous injection every twelve hours 3 ml insulin aspart, human 100 unt/ml pen injector (5 sources) Insulin Analog Start: 12-29-2024 End: 01-15-2025 Start: 12-23-2024 End: 01-15-2025 Insulin Aspart U-100 (Novolo g U-100 Insulin Aspart) 100 unit/mL solution Discontinued 1 sliding scale dose SUBCUT As Directed December 23, 2024 12:00am January 15, 2025 12:24pm 3 ml insulin glargine 100 un t/ml pen injector (3 sources) Insulin Analog Start: 01-15-2025 Start: 12-29-2024 End: 01-15-2025 Insulin Glargine (Lantus Susana ostar U-100 Insulin) 100 unit/mL (3 mL) Insulin Pen Discontinued 40 UNIT SUBCUT Daily 12 December 29, 2024 12:00am January 15, 2025 12:23pm lidocaine 0.04 mg/mg medicated patch (1 source) Antiarrhythmic, Amide Local Anesthetic Start: 01-15-2025 apply 1 dose topically once daily linezolid 600 mg oral tablet (1 source) Oxazolidinone Antibacterial Start: 01-05-2019 take 600 mg by mouth twice daily Linezolid Active 600 MG Oral Twice daily 28 14 January 05, 2019 2:10pm Magnesium (1 source) Magnesium 400 MG as directed Orally Active meclizine hydrochloride 25 mg chewable tablet (12 sources) Antiemetic Start: 09-30-2017 take 25 mg by mouth once daily Meclizine Active 25 MG Oral Daily September 30, 2017 6:30pm Start: 09-30-2017 End: 12-29-2024 take 1 tablet by mouth every eight hours as needed for dizziness Meclizine 25 mg Tablet,Chewable Discontinued 25 MG PO Every 8 hours as needed for Dizziness September 30, 2017 12:00am December 29, 2024 12:20pm take 1 tablet by regan th every eight hours Meclizine HCl 25 MG 1 tablet as needed Orally three times a day Active metoprolol tartrate 25 mg oral tablet (1 source) beta-Adrenergic Osman Start: 01-05-2019 take 25 mg by mouth twice daily Metoprolol Tartrate Active 25 MG Oral Twice daily 120 60 January 05, 2019 2:10pm midodrine hydrochloride 5 mg oral tablet (2 sources) alpha-Adrenergic Agonist Start: 01-15-2025 take 2 tablets by mouth before breakfast take 1 tablet by regan th twice daily in the morning Midodrine HCl 5 MG TAKE 1 TABLET BY MOUT H TWICE DAILY IN THE MORNING AND SUPPER IF BLOOD PRESSURE IS LESS THAN 90 STANDING Oral Active montelukast 10 mg oral tablet (12 sources) Leukotriene Receptor Antagonist Start: 09-30-2017 take 1 tablet by mouth at bedtime Multivit With Zca-Ab-Kzstcdpl (One-A-Day Men's 50 Plus) 400-370 mcg tablet (2 sources) Start: 12-23-2024 take 50-400 tablets by mouth once daily nystatin 100 unt/mg topical powder (1 source) Polyene Antifungal Start: 01-15-2025 ondansetron 4 mg oral tablet (1 source) Serotonin-3 Receptor Antagonist take 1 tablet by mouth every eight hours as needed Ondansetron HCl 4 MG TAKE 1 TABLET BY MOUTH EVERY 8 HOURS NEEDED Oral for 3 Active oxyCODONE hydrochloride 5 mg oral tablet (1 source) Opioid Agonist Start: 01-15-2025 take 2 tablets by mouth every six hours as needed for pain polyethylene glycol 3350 59512 mg powder for oral solution (2 sources) Osmotic Laxative Start: 01-15-2025 Miralax 17 grams orally at hour of sleep Active pregabalin 75 mg oral capsule (2 sources) Start: 04-16-2019 take 1 capsule by mouth three times daily pregabalin (LYRICA) 75 mg capsule Indications: Diabetic peripheral neuropathy (CMS-HCC) Take 1 capsule (75 mg total) by mouth 3 (three) times a day. 90 capsule 1 04/16/2019 Active Renal Softgels (1 source) Renal Softgels Active rosuvastatin calcium 20 mg oral tablet (14 sources) HMG-CoA Reductase Inhibitor Start: 12-23-2024 take 1 tablet by mouth at bedtime Start: 08-18-2020 take 10 mg by mouth [...] MG Oral Daily September 30, 2017 6:35pm sevelamer carbonate 800 mg oral tablet (18 sources) Phosphate Binder Start: 08-25-2020 take 1 tablet by regan th once at mealtime Start: 09-30-2017 take 400 [...] total) by mouth in the morning. Active 5 ml sodium ferric gluconate complex 12.5 mg/ml injection (1 source) Start: 01-15-2025 triamcinolone acetonide 1 mg/ml topical cream (11 sources) Corticosteroid Start: 12-31-2018 Triamcinolone Acetonide Active 1 APPLIC TOPICAL Twice daily December 31, 2018 3:14pm Start: 12-31-2018 End: 12-29-2024 Triamcinolone Acetonide 0.1 % Cream Discontinued 1 APPLIC TOPICAL Twice daily December 31, 2018 12:00am December 29, 2024 12:20pm Completed/Discontinued Medications Medication Drug Class(es) Dates Sig (Normalized) Sig (Original) acetaminophen 325 mg / HYDROcodone bitartrate 5 mg oral tablet (19 sources) Opioid Agonist Start: 12-31-2018 End: 01-05-2019 [...] / oxyCODONE hydrochloride 5 mg oral tablet (9 sources) Opioid Agonist Start: 11-12-2017 End: 12-31-2018 take 1 tablet by mouth every six hours as needed for pain Oxycodone-Acetaminophen (Percocet) 5-325 mg tablet Discontinued 1 TAB PO Q6H as needed for pain (scale score 7-10) 24 6 November 12, 2017 December 31, 2018 3:12pm take 1 tablet by regan th every eight hours as needed Percocet 5-325 MG 1 tablet as needed Orally EVERY 8 HRS NEEDED Active amoxicillin 500 mg / clavulanate 125 mg oral tablet (16 sources) Penicillin-class Antibacterial Start: 11-12-2017 End: 11-26-2017 take 1 tablet by mouth every eight hours Amoxicillin-Pot Clavulanate (Augmentin) 500-125 mg tablet Discontinued 1 TAB PO Q8H 42 14 November 12, 2017 12:00am November 25, 2017 12:00am November 26, 2017 12:01am Start: 10-04-2017 End: 11-08-2017 take 1 tablet by mouth twice daily Amoxicillin-Pot Clavulanate (Augmentin) 500-125 mg tablet Discontinued 1 TAB PO Twice daily October 04, 2017 12:00am November 08, 2017 1:24pm apremilast 30 mg oral tablet (8 sources) Start: 08-19-2020 End: 12-29-2024 take 1 tablet by mouth once daily Apremilast (Otezla) 30 mg Tablet Discontinued 30 MG PO Daily August 19, 2020 12:00am December 29, 2024 12:20pm atorvastatin 40 mg oral tablet (7 sources) HMG-CoA Reductase Inhibitor Start: 08-23-2020 End: 01-15-2025 take 1 tablet by mouth once daily in the evening Atorvastatin 40 mg Tablet Discontinued 40 MG PO Every evening August 23, 2020 12:00am January 15, 2025 12:23pm B Complex And C 20-Folic Acid 1 mg capsule (3 sources) Start: 09-30-2017 End: 11-08-2017 take 1 [...] 2017 1:25pm bumetanide 2 mg oral tablet (8 sources) Loop Diuretic Start: 09-30-2017 End: 12-31-2018 take 1 tablet by mouth once daily Bumetanide 2 mg Tablet Discontinued 2 MG PO Daily September 30, 2017 12:00am December 31, 2018 3:05pm calcium acetate 667 mg oral capsule (11 sources) Start: 09-30-2017 End: 08-25-2020 take 1 capsule by mouth three times daily at mealtime Calcium Acetate(Phosphat Bind) 667 mg Capsule Discontinued 667 MG PO THREE TIMES DAILY WITH MEALS September 30, 2017 12:00am August 25, 2020 12:34pm cholecalciferol 0.125 mg oral tablet (8 sources) Vitamin D Start: 08-18-2020 End: 08-25-2020 take 1 tablet by mouth once daily Cholecalciferol (Vitamin D3) (Vitamin D3) 125 mcg (5,000 unit) Tablet Discontinued 125 MCG PO Daily August 18, 2020 12:00am August 25, 2020 12:34pm doxycycline hyclate 100 mg oral capsule (8 sources) Tetracycline-class Drug Start: 11-12-2017 End: 12-03-2017 take 1 capsule by mouth twice daily Doxycycline Hyclate 100 mg capsule Discontinued 100 MG PO Twice daily November 12, 2017 12:00am December 02, 2017 12:00am December 03, 2017 12:01am empagliflozin 25 mg oral tablet (2 sources) Sodium-Glucose Cotransporter 2 Inhibitor Start: 12-23-2024 End: 01-15-2025 take 1 tablet by mouth once daily Empagliflozin (Jardiance) 25 mg tablet Discontinued 25 MG PO Daily December 23, 2024 12:00am January 15, 2025 12:23pm On Hold: Plan to hold permanently given HD status per nephrology esomeprazole 40 mg delayed release oral capsule (8 sources) Proton Pump Inhibitor Start: 08-18-2020 End: 12-29-2024 take 1 capsule by mouth once daily Esomeprazole Magnesium 40 mg capsule,delayed release(DR/EC) Discontinued 40 MG PO Daily August 18, 2020 12:00am December 29, 2024 12:20pm ferrous sulfate 325 mg oral tablet (7 sources) Start: 08-25-2020 End: 12-29-2024 Ferrous Sulfate 325 mg (65 mg iron) tablet Discontinued 325 MG PO Every 48 hours August 25, 2020 12:00am December 29, 2024 12:20pm furosemide 40 mg oral tablet (9 sources) Loop Diuretic Start: 08-25-2020 End: 12-29-2024 take 1 tablet by mouth twice daily Furosemide 40 mg Tablet Discontinued 40 MG PO BID@0800,1600 60 August 25, 2020 12:00am December 29, 2024 12:20pm Start: 01-05-2019 take 40 mg by mouth once daily Furosemide Active 40 MG Oral Daily January 05, 2019 2:10pm gabapentin 800 mg oral tablet (16 sources) Anti-epileptic Agent Start: 08-18-2020 End: 08-25-2020 take 1 tablet by mouth twice daily Gabapentin 800 mg tablet Discontinued 800 MG PO Twice daily August 18, 2020 12:00am August 25, 2020 12:34pm Start: 09-30-2017 End: 12-31-2018 take 1 tablet by mouth twice daily Gabapentin 600 mg tablet Discontinued 600 MG PO Twice daily September 30, 2017 12:00am December 31, 2018 3:10pm hydrALAZINE hydrochloride 25 mg oral tablet (10 sources) Arteriolar Vasodilator Start: 12-29-2024 End: 01-15-2025 take 1 tablet by mouth three times daily Hydralazine 25 mg Tablet Discontinued 25 MG PO Three times daily December 29, 2024 12:00am January 15, 2025 12:23pm Start: 08-18-2020 End: 12-29-2024 take 1 tablet by mouth three times daily Hydralazine 100 mg tablet Discontinued 100 MG PO Three times daily August 18, 2020 12:00am December 29, 2024 12:20pm 3 ml insulin degludec 100 unt/ml pen injector (20 sources) Insulin Analog Start: 11-08-2017 End: 12-29-2024 Insulin Degludec (Tresiba Flextouch U-100) 100 unit/mL (3 mL) insulin pen Discontinued 200 UNIT SUBCUT Daily November 08, 2017 1:37pm December 29, 2024 12:20pm Start: 11-08-2017 inject 100 [IU] by s [...] in the morning. Active 3 ml insulin detemir 100 unt/ml pen injector (2 sources) Insulin Analog Start: 12-23-2024 End: 12-29-2024 inject 30 [IU] by subcutaneous injection at bedtime Insulin Detemir U-100 100 unit/mL (3 mL) insulin pen Discontinued 30 UNIT SUBCUT Bedtime December 23, 2024 12:00am December 29, 2024 12:20pm 3 ml insulin glargine 100 unt/ml / lixisenatide 0.033 mg/ml pen injector (20 sources) Insulin Analog Start: 12-31-2018 End: 12-29-2024 Insulin Glargine-Lixisenat rayne (Soliqua 100/33) 100 unit-33 mcg/mL Insulin Pen Discontinued 60 UNITS SUBCUT Daily December 31, 2018 12:00am December 29, 2024 12:20pm Start: 09-30-2017 End: 10-04-2017 Insulin Glargine-Lixisenatid e (Soliqua 100/33) 100 unit-33 mcg/mL Insulin Pen Discontinued 70 UNIT SUBCUT Daily September 30, 2017 12:00am October 04, 2017 1:07pm inject 60 [IU] by subcutaneous injection twice daily Soliqua 100/33 60 Units Subcutaneous TWICE A DAY Active 3 ml insulin lispro 100 unt/ml pen injector (20 sources) Insulin Analog Start: 11-08-2017 End: 12-31-2018 [...] SCALE Active linaclotide 0.145 mg oral capsule (8 sources) Guanylate Cyclase-C Agonist Start: 09-30-2017 End: 11-08-2017 take 1 capsule by mouth once daily Linaclotide 145 mcg capsule Discontinued 145 MCG PO Daily September 30, 2017 12:00am November 08, 2017 1:31pm losartan potassium 100 mg oral tablet (10 sources) Angiotensin 2 Receptor Osman Start: 12-31-2018 End: 01-05-2019 take 1 tablet by mouth once daily Losartan 100 mg Tablet Discontinued 100 MG PO Daily December 31, 2018 12:00am January 05, 2019 2:16pm take 2 tablets by mouth in the m orning losartan (COZAAR) 50 mg tablet Take 2 tablets (100 mg total) by mouth in the morning. Active magnesium oxide 400 mg oral tablet (8 sources) Start: 08-18-2020 End: 12-29-2024 take 1 tablet by mouth once daily Magnesium Oxide 400 mg magnesium Tablet Discontinued 400 MG PO Daily August 18, 2020 12:00am December 29, 2024 12:20pm methotrexate 2.5 mg oral tablet (11 sources) Folate Analog Metabolic Inhibitor Start: 12-31-2018 [...] tablet by mouth once a week Active methylPREDNISolone 4 mg oral tablet (7 sources) Corticosteroid Start: 08-23-2020 End: 12-29-2024 take 1 tablet by mouth once Methylprednisolone (Medrol (Sukh)) 4 mg tablets,dose pack Discontinued 0 PO .COMPLEX August 23, 2020 12:00am December 29, 2024 12:20pm orally per package directions metOLazone 10 mg oral tablet (8 sources) Thiazide-like Diuretic Start: 09-30-2017 End: 12-31-2018 take 1 tablet by mouth twice daily Metolazone 10 mg tablet Discontinued 10 MG PO Twice daily September 30, 2017 12:00am December 31, 2018 3:12pm OXcarbazepine 300 mg oral tablet (12 sources) Anti-epileptic Agent Start: 09-30-2017 End: 12-29-2024 take 1 tablet by mouth at bedtime Oxcarbazepine 300 mg tablet Discontinued 300 MG PO Bedtime September 30, 2017 12:00am December 29, 2024 12:20pm potassium chloride 10 meq extended release oral tablet (15 sources) Start: 08-25-2020 End: 12-29-2024 Potassium Chloride (Klor-Con 10) 10 mEq Tablet Extended Release Discontinued 10 MEQ PO Daily August 25, 2020 12:00am December 29, 2024 12:20pm Start: 09-30-2017 End: 12-31-2018 Potassium Chloride 20 mEq Ta blet Extended Release Discontinued 20 MEQ PO As Directed September 30, 2017 12:00am December 31, 2018 3:13pm sodium bicarbonate 325 mg oral tablet (13 sources) Start: 12-23-2024 End: 01-15-2025 take 1 tablet by mouth three times daily Sodium Bicarbonate 325 mg tablet Discontinued 325 MG PO Three times daily December 23, 2024 12:00am January 15, 2025 12:24pm Start: 11-08-2017 take 325 mg by mouth once sohan y Sodium Bicarbonate Active 325 MG Oral Daily November 08, 2017 1:34pm Start: 11-08-2017 End: 08-25-2020 take 1 tablet by mouth twice daily Sodium Bicarbonate 325 mg Tablet Discontinued 325 MG PO Twice daily November 08, 2017 12:00am August 25, 2020 12:34pm sulfamethoxazole 800 mg / trimethoprim 160 mg oral tablet (18 sources) Dihydrofolate Reductase Inhibitor Antibacterial, Sulfonamide Antimicrobial [...] 30, 2017 12:00am October 04, 2017 12:33pm tamsulosin hydrochloride 0.4 mg oral capsule (20 sources) alpha-Adrenergic Osman Start: 12-31-2018 End: 12-29-2024 take 1 capsule by mouth once daily Tamsulosin (Flomax) 0.4 mg Capsule Discontinued 0.4 MG PO Daily December 31, 2018 12:00am December 29, 2024 12:20pm Start: 09-30-2017 End: 11-08-2017 take 1 capsule by mouth once daily Tamsulosin (Flomax) 0.4 mg Capsule,Extended Release 24hr Discontinued 0.4 MG PO Daily September 30, 2017 12:00am November 08, 2017 1:33pm traZODone hydrochloride 50 mg oral tablet (12 sources) Serotonin Reuptake Inhibitor Start: 09-30-2017 End: 12-29-2024 take 1 tablet by mouth at bedtime Trazodone 50 mg tablet Discontinued 50 MG PO Bedtime September 30, 2017 12:00am December 29, 2024 12:20pm varenicline 1 mg oral tablet (10 sources) Partial Cholinergic Nicotinic Agonist Start: 09-30-2017 End: 01-05-2019 take 1 tablet by mouth once daily Varenicline Tartrate 1 mg tablet Discontinued 1 MG PO Daily September 30, 2017 12:00am January 05, 2019 2:16pm vorapaxar 2.08 mg oral tablet (8 sources) Protease-activated Receptor-1 Antagonist Start: 09-30-2017 End: 11-08-2017 take 1 tablet by mouth once daily Vorapaxar 2.08 mg Tablet Discontinued 2.08 MG PO Daily September 30, 2017 12:00am November 08, 2017 1:36pm Problems Active Problems Problem Classification Problem Date Documented Date Episodic/Chronic Acute and unspecified renal failure (11 sources) Acute kidney failure, unspecified; Translations: [Acute kidney failure, unspecified] Onset: 2 Episodic Bacterial infection; unspecified site (18 sources) Methicillin resistant Staphylococcus aureus infection; Translations: [Streptococcus agalactiae infection] 11-11-2017 Episodic Chronic kidney disease (20 sources) Chronic kidney disease stage 4; Translations: [Chronic kidney disease, stage 4 (severe)] Onset: 1 Resolved: 1 Chronic Chronic kidney disease (2 sources) Chronic kidney disease; Translations: [Chronic kidney disease, stage 3 unspecified] Onset: 4 Chronic obstructive pulmonary disease and bronchiectasis (20 sources) Chronic obstructive lung disease; Translations: [Chronic [...] kidney disease] Chronic Deficiency and other anemia (2 sources) Anemia in chronic kidney disease; Translations: [Anemia in chronic kidney disease] Onset: 1 Resolved: 1 Chronic Deficiency and other anemia (1 source) Anemia, unspecified; Translations: [ANEMIA UNSPECIFIED] Onset: 3 Episodic Diabetes mellitus with complications (20 sources) 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; Translations: [Type 2 diabetes mellitus with diabetic 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] Onset: 1 Resolved: 1 Chronic Diabetes mellitus without complication (17 sources) Type 2 diabetes mellitus; Translations: [Diabetes mellitus] Onset: 3 09-30-2017 Chronic Diabetes mellitus without complication (2 sources) Hyperglycemia; Translations: [Hyperglycemia, unspecified] Episodic Disorders of lipid metabolism (6 sources) Hyperlipidemia; Translations: [Hyperlipidemia, unspecified] Onset: 1 Resolved: 1 Chronic Esophageal disorders (19 sources) Gastroesophageal reflux disease; Translations: [Gastro-esophageal reflux disease without esophagitis] Onset: 5 Chronic Essential hypertension (16 sources) Hypertensive disorder; Translations: [Essential (primary) hypertension] Onset: 2 Chronic Fluid and electrolyte disorders (20 sources) Metabolic acidosis; Translations: [Acidosis] Onset: 5 Episodic Fracture of neck of femur (hip) (14 sources) Fracture of bone of hip region; Translations: [Fracture of unspecified part of neck of unspecified femur, initial encounter for closed fracture] Onset: 5 12-23-2024 Episodic Fracture of upper limb (6 sources) Fracture of distal end of radius; Translations: [Unspecified fracture of the lower end of unspecified radius, initial encounter for closed fracture] Onset: 5 12-24-2024 Episodic Gangrene (3 sources) Critical lower limb ischemia ; Translations: [Atherosclerosis of [place] arteries of extremities with gangrene, left leg] Onset: 4 02-27-2024 Chronic Genitourinary symptoms and ill-defined conditions (2 sources) Dysuria; Translations: [Dysuria] Onset: 4 Episodic Hypertension with complications and secondary hypertension (20 sources) Chronic kidney disease due to hypertension; [...] LEFT ANKLE] Onset: 3 Chronic Other aftercare (2 sources) USP (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; Translations: [RESIDENTIAL TECH CURRENT USE OF INSULIN] Onset: 2 Episodic Other bone disease and musculoskeletal deformities (1 source) Acquired absence of left foot; Translations: [ACQUIRED ABSENCE OF LEFT FOOT] Onset: 3 Chronic Other bone disease and musculoskeletal deformities (2 sources) Amputated foot; Translations: [Acquired absence of left foot] Onset: 5 01-24-2025 Chronic Other bone disease and musculoskeletal deformities (2 sources) Amputated foot; Translations: [Acquired absence of right foot] Onset: 5 01-24-2025 Chronic Other bone disease and musculoskeletal deformities (8 sources) History of amputation of right foot; [...] Other hereditary and degenerative nervous system conditions (2 sources) Idiopathic peripheral autonomic neuropathy; Translations: [Other idiopathic peripheral autonomic neuropathy] Onset: 7 07-20-2016 Chronic Other inflammatory condition of skin (13 sources) Psoriasis; Translations: [Psoriasis, unspecified] Onset: 5 01-05-2019 Chronic Other inflammatory condition of skin (6 sources) Psoriasis, unspecified; Translations: [Other psoriasis] Onset: 3 Chronic Other inflammatory condition of skin (1 source) Other psoriasis; Translations: [OTHER PSORIASIS] Onset: 3 Chronic Other liver diseases (1 source) Liver disease, unspecified; Translations: [LIVER DISEASE UNSPECIFIED] Onset: 3 Chronic Other lower respiratory disease (7 sources) History of pleural effusion; Translations: [Personal history of other diseases of the respiratory system] 08-20-2020 Episodic Other lower respiratory disease (7 sources) Pleuritic pain; Translations: [Pleurodynia] 08-20-2020 Episodic Other lower respiratory disease (3 sources) Personal history of other diseases of the respiratory system; Translations: [Personal history of other diseases of respiratory system] Episodic Other lower respiratory disease (3 sources) Pleurodynia; Translations: [Painful respiration] Episodic Other nutritional; endocrine; and metabolic disorders (9 sources) Morbid obesity; Translations: [Morbid (severe) obesity due to excess calories] 09-30-2017 Chronic Other nutritional; endocrine; and metabolic disorders (5 sources) Morbid (severe) obesity due to excess calories; Translations: [Morbid obesity] Onset: 2 Chronic Kristin-; endo-; and myocarditis; cardiomyopathy (except that caused by tuberculosis or sexually transmitted disease) (10 sources) Pericarditis; Translations: [Disease of pericardium, unspecified] Episodic Peripheral and visceral atherosclerosis (16 sources) Peripheral vascular disease; Translations: [Peripheral vascular disease, unspecified] Onset: 3 Chronic Pleurisy; pneumothorax; pulmonary collapse (20 sources) Thickening of pleura; 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 Unclassified (4 sources) Please follow post-op orders. Unclassified (2 sources) Call to schedule follow up appointment with PCP after discharge Unclassified (2 sources) Follow up with rehab physician as needed Unclassified (2 sources) Call to schedule follow up appointment with surgeon after discharge Unclassified (1 source) Call to schedule follow up appointment with Nephrology per your routine schedule Past or Other Problems Problem Classification Problem Date Documented Date Episodic/Chronic Acquired foot deformities (2 sources) Other acquired deformities of left foot; Translations: [Valgus deformity, not elsewhere classified, left ankle] Onset: 01-05-2022 Episodic Deficiency and other anemia (1 source) Iron deficiency anemia, unspecified; Translations: [IRON DEFICIENCY ANEMIA UNSPECIFIED] Onset: 06-27-2022 Episodic Other aftercare (7 sources) Other senior living (current) drug therapy; Translations: [OTH [facility] CURRENT DRUG THERAPY] Onset: 08-20-2022 Episodic Other circulatory disease (1 source) Critical [...] 01-05-2022 Episodic Skin and subcutaneous tissue infections (10 sources) Abscess of face; Translations: [Abscess of neck] Onset: 09-29-2017 09-29-2017 Episodic Spondylosis; intervertebral disc disorders; other back problems (4 sources) Muscle spasm of back; Translations: [MUSCLE SPASM OF BACK] Onset: 11-30-2021 Episodic Results Test Name Value Interpretation Reference Range Facility Glucose Poct Glucometerson 0 01-15-2025 Commemt1 Glu2: Cleaned Meter Normal [facility] Comment on above: Result Comment: PERF ORMED BY: [facility] [address] [address] PATHOLOGIST [employer] CARLOS BIRMINGHAM M.D. Performed By: #### H EPACUTE, HBCAB, HBSAB #### [facility] , Glucose [Mass/Vol] 85 mg/dL Normal [facility] Comment on above: Result Comment: [facility] Glucose Reference Range is dependent on time and content of last meal. Glucose of more than 200 mg/dL in a nonstressed, ambulatory subject supports the diagnosis of Diabetes Mellitus. Performed By: #### H EPACUTE, HBCAB, HBSAB #### [facility] , Glucose [Mass/Vol] 85 mg/dL Normal [facility] Comment on above: Result Comment: [facility] om Glucose Reference Range is dependent on time and content of last meal. Glucose of more than 200 mg/dL in a nonstressed, ambulatory subject supports the diagnosis of Diabetes Mellitus. PERFORMED BY: [address] [place] [id number] PATHOLOGIST [employer] CARLOS BIRMINGHAM M.D. Performed By: #### H EPACUTE, HBCAB, HBSAB #### [facility] , Glucose Poct Glucometerson 0 01-14-2025 Glucose [Mass/Vol] 296 mg/dL Normal [facility] Comment on above: Result Comment: [facility] om Glucose Reference Range is dependent on time and content of last meal. Glucose of more than 200 mg/dL in a nonstressed, ambulatory subject supports the diagnosis of Diabetes Mellitus. PERFORMED BY: [address] [place] [id number] PATHOLOGIST [employer] CARLOS BIRMINGHAM M.D. Performed By: #### H EPACUTE, HBCAB, HBSAB #### [facility] , Glucose [Mass/Vol] 131 mg/dL Normal [facility] Comment on above: Result Comment: [facility] om Glucose Reference Range is dependent on time and content of last meal. Glucose of more than 200 mg/dL in a nonstressed, ambulatory subject supports the diagnosis of Diabetes Mellitus. PERFORMED BY: [address] [place] [id number] PATHOLOGIST [employer] CARLOS BIRMINGHAM M.D. Performed By: #### H EPACUTE, HBCAB, HBSAB #### [facility] , Glucose [Mass/Vol] 116 mg/dL Normal [facility] Comment on above: Result Comment: [facility] om Glucose Reference Range is dependent on time and content of last meal. Glucose of more than 200 mg/dL in a nonstressed, ambulatory subject supports the diagnosis of Diabetes Mellitus. PERFORMED BY: [address] [place] [id number] PATHOLOGIST [employer] CARLOS BIRMINGHAM M.D. Performed By: #### G LULS #### Point of Care testing , Glucose [Mass/Vol] 118 mg/dL Normal [facility] Comment on above: Result Comment: [facility] Glucose Reference Range is dependent on time and content of last meal. Glucose of more than 200 mg/dL in a nonstressed, ambulatory subject supports the diagnosis of Diabetes Mellitus. PERFORMED BY: [address] [id number] PATHOLOGIST [employer] CARLOS BIRMINGHAM M.D. Performed By: #### G LULS #### Point of Care testing , Glucose Poct Glucometerson 0 01-13-2025 Glucose [Mass/Vol] 75 mg/dL Normal [facility] Comment on above: Result Comment: [facility] Glucose Reference Range is dependent on time and content of last meal. Glucose of more than 200 mg/dL in a nonstressed, ambulatory subject supports the diagnosis of Diabetes Mellitus. PERFORMED BY: [address] [id number] PATHOLOGIST [employer] CARLOS BIRMINGHAM M.D. Performed By: #### G LULS #### Point of Care testing , Glucose [Mass/Vol] 89 mg/dL Normal [facility] Comment on above: Result Comment: [facility] Glucose Reference Range is dependent on time and content of last meal. Glucose of more than 200 mg/dL in a nonstressed, ambulatory subject supports the diagnosis of Diabetes Mellitus. PERFORMED BY: [address] [id number] PATHOLOGIST [employer] CARLOS BIRMINGHAM M.D. Performed By: #### H EPACUTE, HBCAB, HBSAB #### [facility] , Glucose [Mass/Vol] 114 mg/dL Normal [facility] Comment on above: Result Comment: [facility] Glucose Reference Range is dependent on time and content of last meal. Glucose of more than 200 mg/dL in a nonstressed, ambulatory subject supports the diagnosis of Diabetes Mellitus. PERFORMED BY: [address] [id number] PATHOLOGIST [employer] CARLOS BIRMINGHAM M.D. Performed By: #### G LULS #### Point of Care testing , Glucose [Mass/Vol] 99 mg/dL Normal [facility] Comment on above: Result Comment: [facility] om Glucose Reference Range is dependent on time and content of last meal. Glucose of more than 200 mg/dL in a nonstressed, ambulatory subject supports the diagnosis of Diabetes Mellitus. PERFORMED BY: [address] [address] PATHOLOGIST [employer] CARLOS BIRMINGHAM M.D. Performed By: #### G LULS #### Point of Care testing , Glucose [Mass/Vol] 80 mg/dL Normal [facility] Comment on above: Result Comment: [facility] om Glucose Reference Range is dependent on time and content of last meal. Glucose of more than 200 mg/dL in a nonstressed, ambulatory subject supports the diagnosis of Diabetes Mellitus. PERFORMED BY: [address] [address] PATHOLOGIST [employer] CARLOS BIRMINGHAM M.D. Performed By: #### H EPACUTE, HBCAB, HBSAB #### [facility] , Glucose [Mass/Vol] 66 mg/dL Normal [facility] Comment on above: Result Comment: [facility] om Glucose Reference Range is dependent on time and content of last meal. Glucose of more than 200 mg/dL in a nonstressed, ambulatory subject supports the diagnosis of Diabetes Mellitus. PERFORMED BY: [address] [address] PATHOLOGIST [employer] CARLOS BIRMINGHAM M.D. Performed By: #### G LULS #### Point of Care testing , Renal Function Panelon 01-13 Albumin [Mass/Vol] 3.3 g/dL Low 3.5-5.7 [facility] Comment on above: Performed By: #### G LULS #### Point of Care testing , Anion gap [Moles/Vol] 13.4 mmol/L Normal 6.0-15.0 [facility] Comment on above: Performed By: #### G LULS #### Point of Care testing , Calcium [Mass/Vol] 10.1 mg/dL Normal 8.6-10.3 [facility] Comment on above: Performed By: #### G LULS #### Point of Care testing , Chloride [Moles/Vol] 98 mmol/L Normal 98-107 [facility] Comment on above: Performed By: #### G LULS #### Point of Care testing , CO2 [Moles/Vol] 26.9 mmol/L Normal 21.0-31.0 [facility] Comment on above: Performed By: #### G LULS #### Point of Care testing , Creatinine [Mass/Vol] 5.69 mg/dL High 0.70-1.30 [facility] Comment on above: Performed By: #### G LULS #### Point of Care testing , Creatinine Clr Calc Pharmacy 18.17 Normal [facility] Comment on above: Result Comment: PERF ORMED BY: [place] [id number] [address] PATHOLOGIST [employer] CARLOS BIRMINGHAM M.D. Performed By: #### G LULS #### Point of Care testing , GFR/1.73 sq M.predicted MDRD (S/P/Bld) [Vol rate/Area] 10.432 mL/min/{1.73_m2} Normal [facility] Comment on above: Performed By: #### G LULS #### Point of Care testing , Glucose [Mass/Vol] 78 mg/dL Normal 70-100 [facility] Comment on above: Result Comment: [facility] Glucose Reference Range is dependent on time and content of last meal. Glucose of more than 200 mg/dL in a nonstressed, ambulatory subject supports the diagnosis of Diabetes Mellitus. ADA recommended reference range Performed By: #### G LULS #### Point of Care testing , Phosphate [Mass/Vol] 4.5 mg/dL Normal 2.5-4.5 [facility] Comment on above: Performed By: #### G LULS #### Point of Care testing , Potassium [Moles/Vol] 4.3 mmol/L Normal 3.5-5.1 [facility] Comment on above: Performed By: #### G LULS #### Point of Care testing , Sodium [Moles/Vol] 134 mmol/L Low 136-145 [facility] Comment on above: Performed By: #### G INEZ #### Point of Care testing , Urea nitrogen [Mass/Vol] 35 mg/dL High 7-25 [facility] Comment on above: Performed By: #### G INEZ #### Point of Care testing , Glucose Poct Glucometerson 0 01-12-2025 Glucose [Mass/Vol] 130 mg/dL Normal [facility] Comment on above: Result Comment: [facility] Glucose Reference Range is dependent on time and content of last meal. Glucose of more than 200 mg/dL in a nonstressed, ambulatory subject supports the diagnosis of Diabetes Mellitus. PERFORMED BY: [place] [id number] PATHOLOGIST [employer] CARLOS BIRMINGHAM M.D. Performed By: #### H EPACUTE, HBCAB, HBSAB #### [facility] , Glucose [Mass/Vol] 136 mg/dL Normal [facility] Comment on above: Result Comment: [facility] Glucose Reference Range is dependent on time and content of last meal. Glucose of more than 200 mg/dL in a nonstressed, ambulatory subject supports the diagnosis of Diabetes Mellitus. PERFORMED BY: [address] [address] PATHOLOGIST [employer] CARLOS BIRMINGHAM M.D. Performed By: #### H EPACUTE, HBCAB, HBSAB #### [facility] , Glucose [Mass/Vol] 105 mg/dL Normal [facility] Comment on above: Result Comment: [facility] Glucose Reference Range is dependent on time and content of last meal. Glucose of more than 200 mg/dL in a nonstressed, ambulatory subject supports the diagnosis of Diabetes Mellitus. PERFORMED BY: [address] [address] PATHOLOGIST [employer] CARLOS BIRMINGHAM M.D. Performed By: #### H EPACUTE, HBCAB, HBSAB #### [facility] , Glucose [Mass/Vol] 69 mg/dL Normal [facility] Comment on above: Result Comment: [facility] om Glucose Reference Range is dependent on time and content of last meal. Glucose of more than 200 mg/dL in a nonstressed, ambulatory subject supports the diagnosis of Diabetes Mellitus. PERFORMED BY: [place] [address] PATHOLOGIST [employer] CARLOS BIRMINGHAM M.D. Performed By: #### G LULS #### Point of Care testing , Commemt1 Normal [facility] Comment on above: Result Comment: Glu2 : WILL NOTIFY DR/RN PERFORMED BY: [address] [id number] PATHOLOGIST [employer] CARLOS BIRMINGHAM M.D. Performed By: #### H EPACUTE, HBCAB, HBSAB #### [facility] , Glucose [Mass/Vol] 48 mg/dL Off scale low [facility] Comment on above: Result Comment: [facility] om Glucose Reference Range is dependent on time and content of last meal. Glucose of more than 200 mg/dL in a nonstressed, ambulatory subject supports the diagnosis of Diabetes Mellitus. Performed By: #### H EPACUTE, HBCAB, HBSAB #### [facility] , Glucose [Mass/Vol] 89 mg/dL Normal [facility] Comment on above: Result Comment: [place] [facility] Glucose Reference Range is dependent on time and content of last meal. Glucose of more than 200 mg/dL in a nonstressed, ambulatory subject supports the diagnosis of Diabetes Mellitus. PERFORMED BY: [place] [id number] PATHOLOGIST [employer] CARLOS BIRMINGHAM M.D. Performed By: #### G LULS #### Point of Care testing , XR hip RT min 2V(w/wo pelvis )*on 01-12-2025 XR hip RT min 2V(w/wo pelvis)* [facility] [place] [address] [place] [address] XRay Report Signed Patient: Rashard Lyman MR#: [id number] : 1960 Acct:[id number] Age/Sex: 64 / M ADM Date: 12/30/24 Loc: Room: 3I2417-0 Type: ADM IN Attending Dr: Clayton Cardenas MD Copies to: Clayton Cardenas MD Ordering Provider: Clayton Cardenas MD Date of Service: 01/12/25 XR/XR hip RT min 2V(w/wo pelvis)*: interval postop 2 views right hip plain film COMPARISON: 12/22/2024 HISTORY: Status post right hip fixation ACUTE FINDINGS: Adequate alignment of fracture fragments. DEGENERATIVE CHANGE: Unremarkable SOFT TISSUE FINDINGS: Unremarkable JOINT EFFUSION: None POSTOP CHANGES: No hardware complication BONY MINERALIZATION: Adequate XR/XR hip RT min 2V(w/wo pelvis)* IMPRESSION: Adequate alignment of fracture fragments. No hardware complication Impression dictated by: Ari Santiago M.D. 01/12/2025 4:27 PM Dictation Location: [place] [address] Transcribed By: [facility] 01/12/25 1627 Dictated By: Ari Santiago DO 01/12/25 1626 Signed By: 01/12/25 1627 Normal [facility] XR knee RT 2Von 01-12-2025 XR knee RT 2V [facility] [place] [address] XRay Report Signed Patient: Rashard Lyman MR#: [id number] : 1960 Acct:[id number] Age/Sex: 64 / M ADM Date: 12/30/24 Loc: Room: [id number] Type: ADM IN Attending Dr: Clayton Cardenas MD Copies to: Clayton Cardenas MD Ordering Provider: Clayton Cardenas MD Date of Service: 01/12/25 XR/XR knee RT 2V: inc pain 2 views right knee plain film COMPARISON: None HISTORY: Right hip fracture fixation ACUTE FINDINGS: No acute findings DEGENERATIVE CHANGE: Mild regional spurring SOFT TISSUE FINDINGS: Unremarkable JOINT EFFUSION: None POSTOP CHANGES: None BONE MINERALIZATION: Adequate XR/XR knee RT 2V IMPRESSION: Mild degeneration. Impression dictated by: Ari Santiago M.D. 01/12/2025 4:29 PM Dictation Location: [facility] [place] Transcribed By: [facility] 01/12/25 1629 Dictated By: Ari Santiago DO 01/12/25 1628 Signed By: 01/12/25 1629 Normal [facility] XR wrist RT 2Von 01-12-2025 XR wrist RT 2V [facility] [place] [address] [place] [address] XRay Report Signed Patient: Rashard Lyman MR#: [id number] : 1960 Acct:[id number] Age/Sex: 64 / M ADM Date: 12/30/24 Loc: Room: [address] [place] [address] Type: ADM IN Attending Dr: Clayton Cardenas MD Copies to: Clayton Cardenas MD Ordering Provider: Clayton Cardenas MD Date of Service: 01/12/25 XR/XR wrist RT 2V: interval postop 2 views right wrist plain film COMPARISON: 12/24/2024 HISTORY: Status post right wrist ORIF ACUTE FINDINGS: Stable bony alignment DEGENERATIVE CHANGE: Unremarkable SOFT TISSUE FINDINGS: Unremarkable JOINT EFFUSION: None POSTOP CHANGES: Stable hardware surgical clips. BONE MINERALIZATION: Adequate XR/XR wrist RT 2V IMPRESSION: Stable alignment and hardware. No complication. Impression dictated by: Ari Santiago M.D. 01/12/2025 4:30 PM Dictation Location: [employer] Transcribed By: [facility] 01/12/25 1630 Dictated By: Ari Santiago DO 01/12/25 1629 Signed By: 01/12/25 1630 Normal [facility] Glucose Poct Glucometerson 0 01-11-2025 Glucose [Mass/Vol] 182 mg/dL Normal [facility] Comment on above: Result Comment: [facility] Glucose Reference Range is dependent on time and content of last meal. Glucose of more than 200 mg/dL in a nonstressed, ambulatory subject supports the diagnosis of Diabetes Mellitus. PERFORMED BY: [place] [id number] PATHOLOGIST [employer] CARLOS BIRMINGHAM M.D. Performed By: #### H EPACUTE, HBCAB, HBSAB #### [facility] , Glucose [Mass/Vol] 98 mg/dL Normal [facility] Comment on above: Result Comment: [place] [facility] Glucose Reference Range is dependent on time and content of last meal. Glucose of more than 200 mg/dL in a nonstressed, ambulatory subject supports the diagnosis of Diabetes Mellitus. PERFORMED BY: [place] [address] PATHOLOGIST [employer] CARLOS BIRMINGHAM M.D. Performed By: #### G LULS #### Point of Care testing , Commemt1 Glu2: Cleaned Meter Normal [facility] Comment on above: Result Comment: PERF ORMED BY: [place] [address] PATHOLOGIST [employer] CARLOS BIRMINGHAM M.D. Performed By: #### R ENAL #### [address] Glucose [Mass/Vol] 97 mg/dL Normal [facility] Comment on above: Result Comment: [place] [facility] Glucose Reference Range is dependent on time and content of last meal. Glucose of more than 200 mg/dL in a nonstressed, ambulatory subject supports the diagnosis of Diabetes Mellitus. Performed By: #### R ENAL #### [address] Glucose [Mass/Vol] 114 mg/dL Normal [facility] Comment on above: Result Comment: [place] [facility] Glucose Reference Range is dependent on time and content of last meal. Glucose of more than 200 mg/dL in a nonstressed, ambulatory subject supports the diagnosis of Diabetes Mellitus. PERFORMED BY: [place] [address] PATHOLOGIST [employer] CARLOS BIRMINGHAM M.D. Performed By: #### H EPACUTE, HBCAB, HBSAB #### [facility] , Renal Function Panelon 01-11 Albumin [Mass/Vol] 3.0 g/dL Low 3.5-5.7 [facility] Comment on above: Performed By: #### H EPACUTE, HBCAB, HBSAB #### [facility] , Anion gap [Moles/Vol] 12.8 mmol/L Normal 6.0-15.0 [facility] Comment on above: Performed By: #### H EPACUTE, HBCAB, HBSAB #### [facility] , Calcium [Mass/Vol] 9.9 mg/dL Normal 8.6-10.3 [facility] Comment on above: Performed By: #### H EPACUTE, HBCAB, HBSAB #### [facility] , Chloride [Moles/Vol] 99 mmol/L Normal 98-107 [facility] Comment on above: Performed By: #### H EPACUTE, HBCAB, HBSAB #### [facility] , CO2 [Moles/Vol] 28.7 mmol/L Normal 21.0-31.0 [facility] Comment on above: Performed By: #### H EPACUTE, HBCAB, HBSAB #### [facility] , Creatinine [Mass/Vol] 6.77 mg/dL High 0.70-1.30 [facility] Comment on above: Performed By: #### H EPACUTE, HBCAB, HBSAB #### [facility] , Creatinine Clr Calc Pharmacy 15.34 Normal [facility] Comment on above: Result Comment: PERF ORMED BY: [address] [place] [address] PATHOLOGIST [employer] CARLOS BIRMINGHAM M.D. Performed By: #### H EPACUTE, HBCAB, HBSAB #### [facility] , GFR/1.73 sq M.predicted MDRD (S/P/Bld) [Vol rate/Area] 8.468 mL/min/{1.73_m2} Normal [facility] Comment on above: Performed By: #### H EPACUTE, HBCAB, HBSAB #### [facility] , Glucose [Mass/Vol] 115 mg/dL High 70-100 [facility] Comment on above: Result Comment: [facility] Glucose Reference Range is dependent on time and content of last meal. Glucose of more than 200 mg/dL in a nonstressed, ambulatory subject supports the diagnosis of Diabetes Mellitus. ADA recommended reference range Performed By: #### H EPACUTE, HBCAB, HBSAB #### [facility] , Phosphate [Mass/Vol] 4.5 mg/dL Normal 2.5-4.5 [facility] Comment on above: Performed By: #### H EPACUTE, HBCAB, HBSAB #### [facility] , Potassium [Moles/Vol] 4.5 mmol/L Normal 3.5-5.1 [facility] Comment on above: Result Comment: Hemo lysis is present at a level that could interfere with the result. Contact lab if redraw is required Performed By: #### H EPACUTE, HBCAB, HBSAB #### [facility] , Sodium [Moles/Vol] 136 mmol/L Normal 136-145 [facility] Comment on above: Performed By: #### H EPACUTE, HBCAB, HBSAB #### [facility] , Urea nitrogen [Mass/Vol] 44 mg/dL High 7-25 [facility] Comment on above: Performed By: #### H EPACUTE, HBCAB, HBSAB #### [facility] , Glucose Poct Glucometerson 0 01-10-2025 Glucose [Mass/Vol] 180 mg/dL Normal [facility] Comment on above: Result Comment: [facility] Glucose Reference Range is dependent on time and content of last meal. Glucose of more than 200 mg/dL in a nonstressed, ambulatory subject supports the diagnosis of Diabetes Mellitus. PERFORMED BY: [place] [address] PATHOLOGIST [employer] CARLOS BIRMINGHAM M.D. Performed By: #### R ENAL #### [address] Glucose [Mass/Vol] 111 mg/dL Normal [facility] Comment on above: Result Comment: [place] [facility] Glucose Reference Range is dependent on time and content of last meal. Glucose of more than 200 mg/dL in a nonstressed, ambulatory subject supports the diagnosis of Diabetes Mellitus. PERFORMED BY: [place] [address] PATHOLOGIST [employer] CARLOS BIRMINGHAM M.D. Performed By: #### H EPACUTE, HBCAB, HBSAB #### [facility] , Commemt1 Glu2: Cleaned Meter Normal [facility] Comment on above: Result Comment: PERF ORMED BY: [place] [address] PATHOLOGIST [employer] CARLOS BIRMINGHAM M.D. Performed By: #### H EPACUTE, HBCAB, HBSAB #### [facility] , Glucose [Mass/Vol] 130 mg/dL Normal [facility] Comment on above: Result Comment: [place] [facility] Glucose Reference Range is dependent on time and content of last meal. Glucose of more than 200 mg/dL in a nonstressed, ambulatory subject supports the diagnosis of Diabetes Mellitus. Performed By: #### H EPACUTE, HBCAB, HBSAB #### [facility] , Glucose [Mass/Vol] 79 mg/dL Normal [facility] Comment on above: Result Comment: [place] [facility] Glucose Reference Range is dependent on time and content of last meal. Glucose of more than 200 mg/dL in a nonstressed, ambulatory subject supports the diagnosis of Diabetes Mellitus. PERFORMED BY: [place] [address] PATHOLOGIST [employer] CARLOS BIRMINGHAM M.D. Performed By: #### R ENAL #### [place] [address] [place] Glucose Poct Glucometerson 0 01-09-2025 Glucose [Mass/Vol] 187 mg/dL Normal [facility] Comment on above: Result Comment: [place] Glucose Reference Range is dependent on time and content of last meal. Glucose of more than 200 mg/dL in a nonstressed, ambulatory subject supports the diagnosis of Diabetes Mellitus. PERFORMED BY: [place] [address] PATHOLOGIST [employer] CARLOS BIRMINGHAM M.D. Performed By: #### H EPACUTE, HBCAB, HBSAB #### [facility] , Commemt1 Glu2: Cleaned Meter Normal [facility] Comment on above: Result Comment: PERF ORMED BY: [place] [address] PATHOLOGIST [employer] CARLOS BIRMINGHAM M.D. Performed By: #### H EPACUTE, HBCAB, HBSAB #### [facility] , Glucose [Mass/Vol] 198 mg/dL Normal [facility] Comment on above: Result Comment: [place] [facility] Glucose Reference Range is dependent on time and content of last meal. Glucose of more than 200 mg/dL in a nonstressed, ambulatory subject supports the diagnosis of Diabetes Mellitus. Performed By: #### H EPACUTE, HBCAB, HBSAB #### [facility] , Commemt1 Glu2: Cleaned Meter Normal [facility] Comment on above: Result Comment: PERF ORMED BY: [place] [address] PATHOLOGIST [employer] CARLOS BIRMINGHAM M.D. Performed By: #### G LULS #### Point of Care testing , Glucose [Mass/Vol] 101 mg/dL Normal [facility] Comment on above: Result Comment: [place] [facility] Glucose Reference Range is dependent on time and content of last meal. Glucose of more than 200 mg/dL in a nonstressed, ambulatory subject supports the diagnosis of Diabetes Mellitus. Performed By: #### G LULS #### Point of Care testing , Commemt1 Glu2: Cleaned Meter Normal [facility] Comment on above: Result Comment: PERF ORMED BY: [place] [address] PATHOLOGIST [employer] CARLOS BIRMINGHAM M.D. Performed By: #### G LULS #### Point of Care testing , Glucose [Mass/Vol] 61 mg/dL Normal [facility] Comment on above: Result Comment: [facility] Glucose Reference Range is dependent on time and content of last meal. Glucose of more than 200 mg/dL in a nonstressed, ambulatory subject supports the diagnosis of Diabetes Mellitus. Performed By: #### G INEZ #### Point of Care testing , Complete Blood Count Auto Di ffon 01-08-2025 Basophils (Bld) [#/Vol] 0.1 10*3/uL Normal 0.0-0.2 [facility] Comment on above: Result Comment: PERF ORMED BY: [facility] [address] [place] [address] PATHOLOGIST [employer] CARLOS BIRMINGHAM M.D. Performed By: #### H EPACUTE, HBCAB, HBSAB #### [facility] , Basophils/100 WBC (Bld) 1.1 % Normal . [facility] Comment on above: Performed By: #### H EPACUTE, HBCAB, HBSAB #### [facility] , Eosinophils (Bld) [#/Vol] 0.5 10*3/uL High 0.0-0.45 [facility] Comment on above: Performed By: #### H EPACUTE, HBCAB, HBSAB #### [facility] , Eosinophils/100 WBC (Bld) 6.1 % Normal . [facility] Comment on above: Performed By: #### H EPACUTE, HBCAB, HBSAB #### [facility] , Erythrocyte distribution width (RBC) [Ratio] 14.5 % Normal 12.0-14.8 [facility] Comment on above: Performed By: #### H EPACUTE, HBCAB, HBSAB #### [facility] , Hematocrit (Bld) [Volume fraction] 24.9 % Low 38.8-50.0 [facility] Comment on above: Performed By: #### H EPACUTE, HBCAB, HBSAB #### [facility] , Hemoglobin (Bld) [Mass/Vol] 8.2 g/dL Low 13.0-17.0 [facility] Comment on above: Performed By: #### H EPACUTE, HBCAB, HBSAB #### [facility] , Lymphocytes (Bld) [#/Vol] 1.8 10*3/uL Normal 1.00-4.8 [facility] Comment on above: Performed By: #### H EPACUTE, HBCAB, HBSAB #### [facility] , Lymphocytes/100 WBC (Bld) 21.3 % Normal . [facility] Comment on above: Performed By: #### H EPACUTE, HBCAB, HBSAB #### [facility] , MCH (RBC) [Entitic mass] 29.3 pg Normal 27.5-35.2 [facility] Comment on above: Performed By: #### H EPACUTE, HBCAB, HBSAB #### [facility] , MCV (RBC) [Entitic vol] 88.6 fL Normal 83.5-101 [facility] Comment on above: Performed By: #### H EPACUTE, HBCAB, HBSAB #### [facility] , Mean Corpuscular HGB Conc 33.0 g/dL Normal 32.5-35.6 [facility] Comment on above: Performed By: #### H EPACUTE, HBCAB, HBSAB #### [facility] , Monocytes (Bld) [#/Vol] 0.9 10*3/uL High 0.0-0.8 [facility] Comment on above: Performed By: #### H EPACUTE, HBCAB, HBSAB #### [facility] , Monocytes/100 WBC (Bld) 10.9 % Normal . [facility] Comment on above: Performed By: #### H EPACUTE, HBCAB, HBSAB #### [facility] , Neutrophils (Bld) [#/Vol] 5.1 10*3/uL Normal 1.8-7.7 [facility] Comment on above: Performed By: #### H EPACUTE, HBCAB, HBSAB #### [facility] , Neutrophils/100 WBC (Bld) 60.6 % Normal . [facility] Comment on above: Performed By: #### H EPACUTE, HBCAB, HBSAB #### [facility] , NRBC% 0.1 /100{WBC} Normal 0-0.5 [facility] Comment on above: Performed By: #### H EPACUTE, HBCAB, HBSAB #### [facility] , Platelet mean volume (Bld) [Entitic vol] 6.0 fL Low 6.6-10.1 [facility] Comment on above: Performed By: #### H EPACUTE, HBCAB, HBSAB #### [facility] , Platelets (Bld) [#/Vol] 370 10*3/uL Normal 150-450 [facility] Comment on above: Performed By: #### H EPACUTE, HBCAB, HBSAB #### [facility] , RBC (Bld) [#/Vol] 2.82 10*6/uL Low 3.90-5.60 [facility] Comment on above: Performed By: #### H EPACUTE, HBCAB, HBSAB #### [facility] , WBC (Bld) [#/Vol] 8.4 10*3/uL Normal 4.1-10.5 [facility] Comment on above: Performed By: #### H EPACUTE, HBCAB, HBSAB #### [facility] , White Blood Count 8.4 [CFU]/mL Normal 4.1-10.5 [facility] Comment on above: Performed By: #### H EPACUTE, HBCAB, HBSAB #### [facility] , Glucose Poct Glucometerson 0 01-08-2025 Glucose [Mass/Vol] 207 mg/dL Normal [facility] Comment on above: Result Comment: [place] [facility] Glucose Reference Range is dependent on time and content of last meal. Glucose of more than 200 mg/dL in a nonstressed, ambulatory subject supports the diagnosis of Diabetes Mellitus. PERFORMED BY: [place] [phone] PATHOLOGIST [employer] CARLOS BIRMINGHAM M.D. Performed By: #### R ENAL #### [address] Glucose [Mass/Vol] 99 mg/dL Normal [facility] Comment on above: Result Comment: [place] [facility] Glucose Reference Range is dependent on time and content of last meal. Glucose of more than 200 mg/dL in a nonstressed, ambulatory subject supports the diagnosis of Diabetes Mellitus. PERFORMED BY: [place] [phone] PATHOLOGIST [employer] CARLOS BIRMINGHAM M.D. Performed By: #### R ENAL, MG #### [address] Commemt1 Glu2: Cleaned Meter Normal [facility] Comment on above: Result Comment: PERF ORMED BY: [place] [phone] PATHOLOGIST [employer] CARLOS BIRMINGHAM M.D. Performed By: #### G LULS #### Point of Care testing , Glucose [Mass/Vol] 122 mg/dL Normal [facility] Comment on above: Result Comment: [place] [facility] Glucose Reference Range is dependent on time and content of last meal. Glucose of more than 200 mg/dL in a nonstressed, ambulatory subject supports the diagnosis of Diabetes Mellitus. Performed By: #### G LULS #### Point of Care testing , Commemt1 Glu2: Cleaned Meter Normal [facility] Comment on above: Result Comment: PERF ORMED BY: [place] [address] PATHOLOGIST [employer] CARLOS BIRMINGHAM M.D. Performed By: #### H EPACUTE, HBCAB, HBSAB #### [facility] , Glucose [Mass/Vol] 87 mg/dL Normal [facility] Comment on above: Result Comment: [facility] Glucose Reference Range is dependent on time and content of last meal. Glucose of more than 200 mg/dL in a nonstressed, ambulatory subject supports the diagnosis of Diabetes Mellitus. Performed By: #### H EPACUTE, HBCAB, HBSAB #### [facility] , Renal Function Panelon 01-08 Albumin [Mass/Vol] 3.1 g/dL Low 3.5-5.7 [facility] Comment on above: Performed By: #### R ENAL #### [address] Anion gap [Moles/Vol] 11.9 mmol/L Normal 6.0-15.0 [facility] Comment on above: Performed By: #### R ENAL #### [address] Calcium [Mass/Vol] 10.4 mg/dL High 8.6-10.3 [facility] Comment on above: Performed By: #### R ENAL #### [address] Chloride [Moles/Vol] 99 mmol/L Normal 98-107 [facility] Comment on above: Performed By: #### R ENAL #### [facility] [address] [place] [address] CO2 [Moles/Vol] 27.2 mmol/L Normal 21.0-31.0 [facility] Comment on above: Performed By: #### R ENAL #### [facility] [address] [place] [address] [place] Creatinine [Mass/Vol] 5.10 mg/dL High 0.70-1.30 [facility] Comment on above: Performed By: #### R ENAL #### [facility] [address] [place] [address] [place] Creatinine Clr Calc Pharmacy 20.08 Normal [facility] Comment on above: Result Comment: PERF ORMED BY: [place] [address] PATHOLOGIST [employer] CARLOS BIRMINGHAM M.D. Performed By: #### R ENAL #### [place] [address] [place] GFR/1.73 sq M.predicted MDRD (S/P/Bld) [Vol rate/Area] 11.897 mL/min/{1.73_m2} Normal [facility] Comment on above: Performed By: #### R ENAL #### [address] Glucose [Mass/Vol] 90 mg/dL Normal 70-100 [facility] Comment on above: Result Comment: [place] Glucose Reference Range is dependent on time and content of last meal. Glucose of more than 200 mg/dL in a nonstressed, ambulatory subject supports the diagnosis of Diabetes Mellitus. ADA recommended reference range Performed By: #### R ENAL #### [place] [address] [place] Phosphate [Mass/Vol] 4.1 mg/dL Normal 2.5-4.5 [facility] Comment on above: Performed By: #### R ENAL #### [place] [address] [place] Potassium [Moles/Vol] 4.1 mmol/L Normal 3.5-5.1 [facility] Comment on above: Performed By: #### R ENAL #### [place] [address] [place] Sodium [Moles/Vol] 134 mmol/L Low 136-145 [facility] Comment on above: Performed By: #### R ENAL #### [place] [address] [place] Urea nitrogen [Mass/Vol] 34 mg/dL High 7-25 [facility] Comment on above: Performed By: #### R ENAL #### [place] [address] [place] Glucose Poct Glucometerson 0 01-07-2025 Commemt1 Glu2: Cleaned Meter Normal [facility] Comment on above: Result Comment: PERF ORMED BY: [place] [address] PATHOLOGIST [employer] CARLOS BIRMINGHAM M.D. Performed By: #### H EPACUTE, HBCAB, HBSAB #### [facility] , Glucose [Mass/Vol] 189 mg/dL Normal [facility] Comment on above: Result Comment: [place] [facility] Glucose Reference Range is dependent on time and content of last meal. Glucose of more than 200 mg/dL in a nonstressed, ambulatory subject supports the diagnosis of Diabetes Mellitus. Performed By: #### H EPACUTE, HBCAB, HBSAB #### [facility] , Glucose [Mass/Vol] 138 mg/dL Normal [facility] Comment on above: Result Comment: [place] [facility] Glucose Reference Range is dependent on time and content of last meal. Glucose of more than 200 mg/dL in a nonstressed, ambulatory subject supports the diagnosis of Diabetes Mellitus. PERFORMED BY: [place] [address] PATHOLOGIST [employer] CARLOS BIRMINGHAM M.D. Performed By: #### G LULS #### Point of Care testing , Glucose [Mass/Vol] 131 mg/dL Normal [facility] Comment on above: Result Comment: [place] [facility] Glucose Reference Range is dependent on time and content of last meal. Glucose of more than 200 mg/dL in a nonstressed, ambulatory subject supports the diagnosis of Diabetes Mellitus. PERFORMED BY: [place] [address] PATHOLOGIST [employer] CARLOS BIRMINGHAM M.D. Performed By: #### H EPACUTE, HBCAB, HBSAB #### [facility] , Glucose [Mass/Vol] 93 mg/dL Normal [facility] Comment on above: Result Comment: [place] [facility] Glucose Reference Range is dependent on time and content of last meal. Glucose of more than 200 mg/dL in a nonstressed, ambulatory subject supports the diagnosis of Diabetes Mellitus. PERFORMED BY: [address] [id number] PATHOLOGIST [employer] CARLOS BIRMINGHAM M.D. Performed By: #### H EPACUTE, HBCAB, HBSAB #### [facility] , Glucose Poct Glucometerson 0 01-06-2025 Glucose [Mass/Vol] 273 mg/dL Normal [facility] Comment on above: Result Comment: [place] [facility] Glucose Reference Range is dependent on time and content of last meal. Glucose of more than 200 mg/dL in a nonstressed, ambulatory subject supports the diagnosis of Diabetes Mellitus. PERFORMED BY: [place] [address] PATHOLOGIST [employer] CARLOS BIRMINGHAM M.D. Performed By: #### H EPACUTE, HBCAB, HBSAB #### [facility] , Glucose [Mass/Vol] 147 mg/dL Normal [facility] Comment on above: Result Comment: [place] [facility] Glucose Reference Range is dependent on time and content of last meal. Glucose of more than 200 mg/dL in a nonstressed, ambulatory subject supports the diagnosis of Diabetes Mellitus. PERFORMED BY: [address] [address] PATHOLOGIST [employer] CARLOS BIRMINGHAM M.D. Performed By: #### H EPACUTE, HBCAB, HBSAB #### [facility] , Commemt1 Glu2: Cleaned Meter Normal [facility] Comment on above: Result Comment: PERF ORMED BY: [place] [id number] PATHOLOGIST [employer] CARLOS BIRMINGHAM M.D. Performed By: #### H EPACUTE, HBCAB, HBSAB #### [facility] , Glucose [Mass/Vol] 169 mg/dL Normal [facility] Comment on above: Result Comment: [place] [facility] Glucose Reference Range is dependent on time and content of last meal. Glucose of more than 200 mg/dL in a nonstressed, ambulatory subject supports the diagnosis of Diabetes Mellitus. Performed By: #### H EPACUTE, HBCAB, HBSAB #### [facility] , Glucose [Mass/Vol] 99 mg/dL Normal [facility] Comment on above: Result Comment: [place] Glucose Reference Range is dependent on time and content of last meal. Glucose of more than 200 mg/dL in a nonstressed, ambulatory subject supports the diagnosis of Diabetes Mellitus. PERFORMED BY: [facility] [place] [address] PATHOLOGIST [employer] CARLOS BIRMINGHAM M.D. Performed By: #### H EPACUTE, HBCAB, HBSAB #### [facility] , Diff and CBCon 01-05-2025 Anisocytosis Ql (Bld) Slight Normal [facility] Comment on above: Performed By: #### H EPACUTE, HBCAB, HBSAB #### [facility] , Band form neutrophils/100 WBC (Bld) 4 % Normal 0-5 [facility] Comment on above: Performed By: #### H EPACUTE, HBCAB, HBSAB #### [facility] , Eosinophils/100 WBC (Bld) 5 % High 1-3 [facility] Comment on above: Performed By: #### H EPACUTE, HBCAB, HBSAB #### [facility] , Erythrocyte distribution width (RBC) [Ratio] 14.2 % Normal 12.0-14.8 [facility] Comment on above: Performed By: #### H EPACUTE, HBCAB, HBSAB #### [facility] , Hematocrit (Bld) [Volume fraction] 25.2 % Low 38.8-50.0 [facility] Comment on above: Performed By: #### H EPACUTE, HBCAB, HBSAB #### [facility] , Hemoglobin (Bld) [Mass/Vol] 8.3 g/dL Low 13.0-17.0 [facility] Comment on above: Performed By: #### H EPACUTE, HBCAB, HBSAB #### [facility] , Large Platelets Slight Normal [facility] Comment on above: Result Comment: PERF ORMED BY: [facility] [place] [address] PATHOLOGIST [employer] CARLOS BIRMINGHAM M.D. Performed By: #### H EPACUTE, HBCAB, HBSAB #### [facility] , Lymphocytes/100 WBC (Bld) 17 % Low 18-42 [facility] Comment on above: Performed By: #### H EPACUTE, HBCAB, HBSAB #### [facility] , MCH (RBC) [Entitic mass] 29.1 pg Normal 27.5-35.2 [facility] Comment on above: Performed By: #### H EPACUTE, HBCAB, HBSAB #### [facility] , MCV (RBC) [Entitic vol] 88.7 fL Normal 83.5-101 [facility] Comment on above: Performed By: #### H EPACUTE, HBCAB, HBSAB #### [facility] , Mean Corpuscular HGB Conc 32.8 g/dL Normal 32.5-35.6 [facility] Comment on above: Performed By: #### H EPACUTE, HBCAB, HBSAB #### [facility] , Microcytosis Slight Normal [facility] Comment on above: Performed By: #### H EPACUTE, HBCAB, HBSAB #### [facility] , Monocytes/100 WBC (Bld) 6 % Normal 2-11 [facility] Comment on above: Performed By: #### H EPACUTE, HBCAB, HBSAB #### [facility] , Myelocytes 1 % High 0-0 [facility] Comment on above: Performed By: #### H EPACUTE, HBCAB, HBSAB #### [facility] , Platelet Estimate Normal Normal Normal [facility] Comment on above: Performed By: #### H EPACUTE, HBCAB, HBSAB #### [facility] , Platelet mean volume (Bld) [Entitic vol] 6.3 fL Low 6.6-10.1 [facility] Comment on above: Performed By: #### H EPACUTE, HBCAB, HBSAB #### [facility] , Platelets (Bld) [#/Vol] 349 10*3/uL Normal 150-450 [facility] Comment on above: Performed By: #### H EPACUTE, HBCAB, HBSAB #### [facility] , Poikilocytosis Slight Normal [facility] Comment on above: Performed By: #### H EPACUTE, HBCAB, HBSAB #### [facility] , Polychromasia Slight Normal [facility] Comment on above: Performed By: #### H EPACUTE, HBCAB, HBSAB #### [facility] , RBC (Bld) [#/Vol] 2.84 10*6/uL Low 3.90-5.60 [facility] Comment on above: Performed By: #### H EPACUTE, HBCAB, HBSAB #### [facility] , Segmented neutrophils/100 WBC (Bld) 68 % Normal 50-70 [facility] Comment on above: Performed By: #### H EPACUTE, HBCAB, HBSAB #### [facility] , Stomatocytes Slight Normal [facility] Comment on above: Performed By: #### H EPACUTE, HBCAB, HBSAB #### [facility] , WBC (Bld) [#/Vol] 9.3 10*3/uL Normal 4.1-10.5 [facility] Comment on above: Performed By: #### H EPACUTE, HBCAB, HBSAB #### [facility] , White Blood Count 9.3 [CFU]/mL Normal 4.1-10.5 [facility] Comment on above: Performed By: #### H EPACUTE, HBCAB, HBSAB #### [facility] , Glucose Poct Glucometerson 0 01-05-2025 Glucose [Mass/Vol] 209 mg/dL Normal [facility] Comment on above: Result Comment: [facility] Glucose Reference Range is dependent on time and content of last meal. Glucose of more than 200 mg/dL in a nonstressed, ambulatory subject supports the diagnosis of Diabetes Mellitus. PERFORMED BY: [place] [address] PATHOLOGIST [employer] CARLOS BIRMINGHAM M.D. Performed By: #### R YUMIKO, MG #### [address] Glucose [Mass/Vol] 172 mg/dL Normal [facility] Comment on above: Result Comment: [place] Glucose Reference Range is dependent on time and content of last meal. Glucose of more than 200 mg/dL in a nonstressed, ambulatory subject supports the diagnosis of Diabetes Mellitus. PERFORMED BY: [place] [address] PATHOLOGIST [employer] CARLOS BIRMINGHAM M.D. Performed By: #### G LULS #### Point of Care testing , Glucose [Mass/Vol] 121 mg/dL Normal [facility] Comment on above: Result Comment: [place] Glucose Reference Range is dependent on time and content of last meal. Glucose of more than 200 mg/dL in a nonstressed, ambulatory subject supports the diagnosis of Diabetes Mellitus. PERFORMED BY: [place] [address] PATHOLOGIST [employer] CARLOS BIRMINGHAM M.D. Performed By: #### H EPACUTE, HBCAB, HBSAB #### [facility] , Glucose [Mass/Vol] 86 mg/dL Normal [facility] Comment on above: Result Comment: [place] Glucose Reference Range is dependent on time and content of last meal. Glucose of more than 200 mg/dL in a nonstressed, ambulatory subject supports the diagnosis of Diabetes Mellitus. PERFORMED BY: [facility] [address] [place] [address] PATHOLOGIST [employer] CARLOS BIRMINGHAM M.D. Performed By: #### H EPACUTE, HBCAB, HBSAB #### [facility] , Complete Blood Count Auto Di ffon 01-04-2025 Basophils (Bld) [#/Vol] 0.2 10*3/uL Normal 0.0-0.2 [facility] Comment on above: Result Comment: PERF ORMED BY: [facility] [address] [place] [address] PATHOLOGIST [employer] CARLOS BIRMINGHAM M.D. Performed By: #### H EPACUTE, HBCAB, HBSAB #### [facility] , Basophils/100 WBC (Bld) 1.3 % Normal . [facility] Comment on above: Performed By: #### H EPACUTE, HBCAB, HBSAB #### [facility] , Eosinophils (Bld) [#/Vol] 0.6 10*3/uL High 0.0-0.45 [facility] Comment on above: Performed By: #### H EPACUTE, HBCAB, HBSAB #### [facility] , Eosinophils/100 WBC (Bld) 4.6 % Normal . [facility] Comment on above: Performed By: #### H EPACUTE, HBCAB, HBSAB #### [facility] , Erythrocyte distribution width (RBC) [Ratio] 14.0 % Normal 12.0-14.8 [facility] Comment on above: Performed By: #### H EPACUTE, HBCAB, HBSAB #### [facility] , Hematocrit (Bld) [Volume fraction] 27.3 % Low 38.8-50.0 [facility] Comment on above: Performed By: #### H EPACUTE, HBCAB, HBSAB #### [facility] , Hemoglobin (Bld) [Mass/Vol] 8.9 g/dL Low 13.0-17.0 [facility] Comment on above: Performed By: #### H EPACUTE, HBCAB, HBSAB #### [facility] , Lymphocytes (Bld) [#/Vol] 2.6 10*3/uL Normal 1.00-4.8 [facility] Comment on above: Performed By: #### H EPACUTE, HBCAB, HBSAB #### [facility] , Lymphocytes/100 WBC (Bld) 20.4 % Normal . [facility] Comment on above: Performed By: #### H EPACUTE, HBCAB, HBSAB #### [facility] , MCH (RBC) [Entitic mass] 28.9 pg Normal 27.5-35.2 [facility] Comment on above: Performed By: #### H EPACUTE, HBCAB, HBSAB #### [facility] , MCV (RBC) [Entitic vol] 88.7 fL Normal 83.5-101 [facility] Comment on above: Performed By: #### H EPACUTE, HBCAB, HBSAB #### [facility] , Mean Corpuscular HGB Conc 32.6 g/dL Normal 32.5-35.6 [facility] Comment on above: Performed By: #### H EPACUTE, HBCAB, HBSAB #### [facility] , Monocytes (Bld) [#/Vol] 0.9 10*3/uL High 0.0-0.8 [facility] Comment on above: Performed By: #### H EPACUTE, HBCAB, HBSAB #### [facility] , Monocytes/100 WBC (Bld) 7.1 % Normal . [facility] Comment on above: Performed By: #### H EPACUTE, HBCAB, HBSAB #### [facility] , Neutrophils (Bld) [#/Vol] 8.5 10*3/uL High 1.8-7.7 [facility] Comment on above: Performed By: #### H EPACUTE, HBCAB, HBSAB #### [facility] , Neutrophils/100 WBC (Bld) 66.6 % Normal . [facility] Comment on above: Performed By: #### H EPACUTE, HBCAB, HBSAB #### [facility] , NRBC% 0.0 /100{WBC} Normal 0-0.5 [facility] Comment on above: Performed By: #### H EPACUTE, HBCAB, HBSAB #### [facility] , Platelet mean volume (Bld) [Entitic vol] 6.8 fL Normal 6.6-10.1 [facility] Comment on above: Performed By: #### H EPACUTE, HBCAB, HBSAB #### [facility] , Platelets (Bld) [#/Vol] 381 10*3/uL Normal 150-450 [facility] Comment on above: Performed By: #### H EPACUTE, HBCAB, HBSAB #### [facility] , RBC (Bld) [#/Vol] 3.08 10*6/uL Low 3.90-5.60 [facility] Comment on above: Performed By: #### H EPACUTE, HBCAB, HBSAB #### [facility] , WBC (Bld) [#/Vol] 12.7 10*3/uL High 4.1-10.5 [facility] Comment on above: Performed By: #### H EPACUTE, HBCAB, HBSAB #### [facility] , White Blood Count 12.7 [CFU]/mL High 4.1-10.5 [facility] Comment on above: Performed By: #### H EPACUTE, HBCAB, HBSAB #### [facility] , Glucose Poct Glucometerson 0 01-04-2025 Glucose [Mass/Vol] 155 mg/dL Normal [facility] Comment on above: Result Comment: [place] [facility] Glucose Reference Range is dependent on time and content of last meal. Glucose of more than 200 mg/dL in a nonstressed, ambulatory subject supports the diagnosis of Diabetes Mellitus. PERFORMED BY: [place] [address] PATHOLOGIST [employer] CARLOS BIRMINGHAM M.D. Performed By: #### G LULS #### Point of Care testing , Glucose [Mass/Vol] 81 mg/dL Normal [facility] Comment on above: Result Comment: [place] [facility] Glucose Reference Range is dependent on time and content of last meal. Glucose of more than 200 mg/dL in a nonstressed, ambulatory subject supports the diagnosis of Diabetes Mellitus. PERFORMED BY: [place] [phone] PATHOLOGIST [employer] CARLOS BIRMINGHAM M.D. Performed By: #### G LULS #### Point of Care testing , Commemt1 Glu2: Cleaned Meter Normal [facility] Comment on above: Result Comment: PERF ORMED BY: [place] [address] PATHOLOGIST [employer] CARLOS BIRMINGHAM M.D. Performed By: #### R ENAL #### [facility] [address] [place] [address] [place] Glucose [Mass/Vol] 120 mg/dL Normal [facility] Comment on above: Result Comment: [place] [facility] Glucose Reference Range is dependent on time and content of last meal. Glucose of more than 200 mg/dL in a nonstressed, ambulatory subject supports the diagnosis of Diabetes Mellitus. Performed By: #### R ENAL #### [facility] [address] [place] [address] [place] Glucose [Mass/Vol] 111 mg/dL Normal [facility] Comment on above: Result Comment: [place] [facility] Glucose Reference Range is dependent on time and content of last meal. Glucose of more than 200 mg/dL in a nonstressed, ambulatory subject supports the diagnosis of Diabetes Mellitus. PERFORMED BY: [place] [address] PATHOLOGIST [employer] CARLOS BIRMINGHAM M.D. Performed By: #### R ENAL #### [address] [address] Renal Function Panelon 01-04 Albumin [Mass/Vol] 3.2 g/dL Low 3.5-5.7 [facility] Comment on above: Performed By: #### H EPACUTE, HBCAB, HBSAB #### [facility] , Anion gap [Moles/Vol] 13.1 mmol/L Normal 6.0-15.0 [facility] Comment on above: Performed By: #### H EPACUTE, HBCAB, HBSAB #### [facility] , Calcium [Mass/Vol] 10.0 mg/dL Normal 8.6-10.3 [facility] Comment on above: Performed By: #### H EPACUTE, HBCAB, HBSAB #### [facility] , Chloride [Moles/Vol] 97 mmol/L Low 98-107 [facility] Comment on above: Performed By: #### H EPACUTE, HBCAB, HBSAB #### [facility] , CO2 [Moles/Vol] 29.0 mmol/L Normal 21.0-31.0 [facility] Comment on above: Performed By: #### H EPACUTE, HBCAB, HBSAB #### [facility] , Creatinine [Mass/Vol] 6.38 mg/dL High 0.70-1.30 [facility] Comment on above: Performed By: #### H EPACUTE, HBCAB, HBSAB #### [facility] , Creatinine Clr Calc Pharmacy 16.00 Normal [facility] Comment on above: Result Comment: PERF ORMED BY: [facility] [address] [place] [address] PATHOLOGIST [employer] CARLOS BIRMINGHAM M.D. Performed By: #### H EPACUTE, HBCAB, HBSAB #### [facility] , GFR/1.73 sq M.predicted MDRD (S/P/Bld) [Vol rate/Area] 9.094 mL/min/{1.73_m2} Normal [facility] Comment on above: Performed By: #### H EPACUTE, HBCAB, HBSAB #### [facility] , Glucose [Mass/Vol] 150 mg/dL High 70-100 [facility] Comment on above: Result Comment: [facility] Glucose Reference Range is dependent on time and content of last meal. Glucose of more than 200 mg/dL in a nonstressed, ambulatory subject supports the diagnosis of Diabetes Mellitus. ADA recommended reference range Performed By: #### H EPACUTE, HBCAB, HBSAB #### [facility] , Phosphate [Mass/Vol] 4.8 mg/dL High 2.5-4.5 [facility] Comment on above: Performed By: #### H EPACUTE, HBCAB, HBSAB #### [facility] , Potassium [Moles/Vol] 4.1 mmol/L Normal 3.5-5.1 [facility] Comment on above: Performed By: #### H EPACUTE, HBCAB, HBSAB #### [facility] , Sodium [Moles/Vol] 135 mmol/L Low 136-145 [facility] Comment on above: Performed By: #### H EPACUTE, HBCAB, HBSAB #### [facility] , Urea nitrogen [Mass/Vol] 47 mg/dL High 7-25 [facility] Comment on above: Performed By: #### H EPACUTE, HBCAB, HBSAB #### [facility] , Glucose Poct Glucometerson 0 01-03-2025 Glucose [Mass/Vol] 259 mg/dL Normal [facility] Comment on above: Result Comment: [place] [facility] Glucose Reference Range is dependent on time and content of last meal. Glucose of more than 200 mg/dL in a nonstressed, ambulatory subject supports the diagnosis of Diabetes Mellitus. PERFORMED BY: [place] [address] PATHOLOGIST [employer] CARLOS BIRMINGHAM M.D. Performed By: #### R ENAL #### [address] Commemt1 Glu2: Cleaned Meter Normal [facility] Comment on above: Result Comment: PERF ORMED BY: [place] [address] PATHOLOGIST [employer] CARLOS BIRMINGHAM M.D. Performed By: #### G LULS #### Point of Care testing , Glucose [Mass/Vol] 144 mg/dL Normal [facility] Comment on above: Result Comment: [place] [facility] Glucose Reference Range is dependent on time and content of last meal. Glucose of more than 200 mg/dL in a nonstressed, ambulatory subject supports the diagnosis of Diabetes Mellitus. Performed By: #### G LULS #### Point of Care testing , Glucose [Mass/Vol] 157 mg/dL Normal [facility] Comment on above: Result Comment: [place] [facility] Glucose Reference Range is dependent on time and content of last meal. Glucose of more than 200 mg/dL in a nonstressed, ambulatory subject supports the diagnosis of Diabetes Mellitus. PERFORMED BY: [place] [phone] PATHOLOGIST [employer] CARLOS BIRMINGHAM M.D. Performed By: #### H EPACUTE, HBCAB, HBSAB #### [facility] , Glucose [Mass/Vol] 104 mg/dL Normal [facility] Comment on above: Result Comment: [place] [facility] Glucose Reference Range is dependent on time and content of last meal. Glucose of more than 200 mg/dL in a nonstressed, ambulatory subject supports the diagnosis of Diabetes Mellitus. PERFORMED BY: [place] [phone] PATHOLOGIST [employer] CARLOS BIRMINGHAM M.D. Performed By: #### H EPACUTE, HBCAB, HBSAB #### [facility] , Glucose Poct Glucometerson 0 01-02-2025 Glucose [Mass/Vol] 184 mg/dL Normal [facility] Comment on above: Result Comment: [place] [facility] Glucose Reference Range is dependent on time and content of last meal. Glucose of more than 200 mg/dL in a nonstressed, ambulatory subject supports the diagnosis of Diabetes Mellitus. PERFORMED BY: [address] [place] [address] PATHOLOGIST [employer] CARLOS BIRMINGHAM M.D. Performed By: #### H EPACUTE, HBCAB, HBSAB #### [facility] , Commemt1 Glu2: Cleaned Meter Normal [facility] Comment on above: Result Comment: PERF ORMED BY: [place] [address] PATHOLOGIST [employer] CARLOS BIRMINGHAM M.D. Performed By: #### H EPACUTE, HBCAB, HBSAB #### [facility] , Glucose [Mass/Vol] 209 mg/dL Normal [facility] Comment on above: Result Comment: [place] [facility] Glucose Reference Range is dependent on time and content of last meal. Glucose of more than 200 mg/dL in a nonstressed, ambulatory subject supports the diagnosis of Diabetes Mellitus. Performed By: #### H EPACUTE, HBCAB, HBSAB #### [facility] , Commemt1 Glu2: Cleaned Meter Normal [facility] Comment on above: Result Comment: PERF ORMED BY: [place] [address] PATHOLOGIST [employer] CARLOS BIRMINGHAM M.D. Performed By: #### G LULS #### Point of Care testing , Glucose [Mass/Vol] 212 mg/dL Normal [facility] Comment on above: Result Comment: [place] [facility] Glucose Reference Range is dependent on time and content of last meal. Glucose of more than 200 mg/dL in a nonstressed, ambulatory subject supports the diagnosis of Diabetes Mellitus. Performed By: #### G LULS #### Point of Care testing , Glucose [Mass/Vol] 170 mg/dL Normal [facility] Comment on above: Result Comment: [place] [facility] Glucose Reference Range is dependent on time and content of last meal. Glucose of more than 200 mg/dL in a nonstressed, ambulatory subject supports the diagnosis of Diabetes Mellitus. PERFORMED BY: [address] [address] PATHOLOGIST [employer] CARLOS BIRMINGHAM M.D. Performed By: #### H EPACUTE, HBCAB, HBSAB #### [facility] , Glucose Poct Glucometerson 0 01-01-2025 Glucose [Mass/Vol] 302 mg/dL Normal [facility] Comment on above: Result Comment: [place] [facility] Glucose Reference Range is dependent on time and content of last meal. Glucose of more than 200 mg/dL in a nonstressed, ambulatory subject supports the diagnosis of Diabetes Mellitus. PERFORMED BY: [address] [address] PATHOLOGIST [employer] CARLOS BIRMINGHAM M.D. Performed By: #### H EPACUTE, HBCAB, HBSAB #### [facility] , Glucose [Mass/Vol] 146 mg/dL Normal [facility] Comment on above: Result Comment: [place] [facility] Glucose Reference Range is dependent on time and content of last meal. Glucose of more than 200 mg/dL in a nonstressed, ambulatory subject supports the diagnosis of Diabetes Mellitus. PERFORMED BY: [address] [address] PATHOLOGIST [employer]ER CARLOS BIRMINGHAM M.D. Performed By: #### G LULS #### Point of Care testing , Glucose [Mass/Vol] 250 mg/dL Normal [facility] Comment on above: Result Comment: [place] [facility] Glucose Reference Range is dependent on time and content of last meal. Glucose of more than 200 mg/dL in a nonstressed, ambulatory subject supports the diagnosis of Diabetes Mellitus. PERFORMED BY: [address] [address] PATHOLOGIST [employer]ER CARLOS BIRMINGHAM M.D. Performed By: #### G LULS #### Point of Care testing , Glucose [Mass/Vol] 126 mg/dL Normal [facility] Comment on above: Result Comment: [facility] Glucose Reference Range is dependent on time and content of last meal. Glucose of more than 200 mg/dL in a nonstressed, ambulatory subject supports the diagnosis of Diabetes Mellitus. PERFORMED BY: [place] [address] PATHOLOGIST [employer]ER CARLOS BIRMINGHAM M.D. Performed By: #### G INEZ #### Point of Care testing , Renal Function Panelon 01-01 Albumin [Mass/Vol] 3.4 g/dL Low 3.5-5.7 [facility] Comment on above: Performed By: #### R ENJOHN, MG #### [address] Anion gap [Moles/Vol] 15.3 mmol/L High 6.0-15.0 [facility] Comment on above: Performed By: #### R ENAL, MG #### [address] Calcium [Mass/Vol] 9.4 mg/dL Normal 8.6-10.3 [facility] Comment on above: Performed By: #### R ENAL, MG #### [address] Chloride [Moles/Vol] 95 mmol/L Low 98-107 [facility] Comment on above: Performed By: #### R ENAL, MG #### [address] CO2 [Moles/Vol] 27.6 mmol/L Normal 21.0-31.0 [facility] Comment on above: Performed By: #### R ENAL, MG #### [address] Creatinine [Mass/Vol] 5.49 mg/dL High 0.70-1.30 [facility] Comment on above: Performed By: #### R ENAL, MG #### [address] Creatinine Clr Calc Pharmacy 18.47 Normal [facility] Comment on above: Result Comment: PERF ORMED BY: [place] [address] PATHOLOGIST [employer] CARLOS BIRMINGHAM M.D. Performed By: #### R ENAL, MG #### [place] [address] [place] GFR/1.73 sq M.predicted MDRD (S/P/Bld) [Vol rate/Area] 10.890 mL/min/{1.73_m2} Normal [facility] Comment on above: Performed By: #### R ENAL, MG #### [place] [address] [place] Glucose [Mass/Vol] 205 mg/dL High 70-100 [facility] Comment on above: Result Comment: [facility] Glucose Reference Range is dependent on time and content of last meal. Glucose of more than 200 mg/dL in a nonstressed, ambulatory subject supports the diagnosis of Diabetes Mellitus. ADA recommended reference range Performed By: #### R ENAL, MG #### [place] [address] [place] Phosphate [Mass/Vol] 4.8 mg/dL High 2.5-4.5 [facility] Comment on above: Performed By: #### R ENAL, MG #### [place] [address] [place] Potassium [Moles/Vol] 3.9 mmol/L Normal 3.5-5.1 [facility] Comment on above: Performed By: #### R ENAL, MG #### [place] [address] [place] Sodium [Moles/Vol] 134 mmol/L Low 136-145 [facility] Comment on above: Performed By: #### R ENAL, MG #### [place] [address] [place] Urea nitrogen [Mass/Vol] 42 mg/dL High 7-25 [facility] Comment on above: Performed By: #### R ENAL, MG #### [address] [place] [address] [facility] Complete Blood Count Auto Di ffon 12-31-2024 Basophils (Bld) [#/Vol] 0.1 10*3/uL Normal 0.0-0.2 [facility] Comment on above: Result Comment: PERF ORMED BY: [place] [address] PATHOLOGIST [employer] CARLOS BIRMINGHAM M.D. Performed By: #### H EPACUTE, HBCAB, HBSAB #### [facility] , Basophils/100 WBC (Bld) 0.8 % Normal . [facility] Comment on above: Performed By: #### H EPACUTE, HBCAB, HBSAB #### [facility] , Eosinophils (Bld) [#/Vol] 0.4 10*3/uL Normal 0.0-0.45 [facility] Comment on above: Performed By: #### H EPACUTE, HBCAB, HBSAB #### [facility] , Eosinophils/100 WBC (Bld) 4.5 % Normal . [facility] Comment on above: Performed By: #### H EPACUTE, HBCAB, HBSAB #### [facility] , Erythrocyte distribution width (RBC) [Ratio] 14.2 % Normal 12.0-14.8 [facility] Comment on above: Performed By: #### H EPACUTE, HBCAB, HBSAB #### [facility] , Hematocrit (Bld) [Volume fraction] 28.1 % Low 38.8-50.0 [facility] Comment on above: Performed By: #### H EPACUTE, HBCAB, HBSAB #### [facility] , Hemoglobin (Bld) [Mass/Vol] 9.1 g/dL Low 13.0-17.0 [facility] Comment on above: Performed By: #### H EPACUTE, HBCAB, HBSAB #### [facility] , Lymphocytes (Bld) [#/Vol] 1.8 10*3/uL Normal 1.00-4.8 [facility] Comment on above: Performed By: #### H EPACUTE, HBCAB, HBSAB #### [facility] , Lymphocytes/100 WBC (Bld) 19.4 % Normal . [facility] Comment on above: Performed By: #### H EPACUTE, HBCAB, HBSAB #### [facility] , MCH (RBC) [Entitic mass] 28.6 pg Normal 27.5-35.2 [facility] Comment on above: Performed By: #### H EPACUTE, HBCAB, HBSAB #### [facility] , MCV (RBC) [Entitic vol] 88.5 fL Normal 83.5-101 [facility] Comment on above: Performed By: #### H EPACUTE, HBCAB, HBSAB #### [facility] , Mean Corpuscular HGB Conc 32.3 g/dL Low 32.5-35.6 [facility] Comment on above: Performed By: #### H EPACUTE, HBCAB, HBSAB #### [facility] , Monocytes (Bld) [#/Vol] 1.4 10*3/uL High 0.0-0.8 [facility] Comment on above: Performed By: #### H EPACUTE, HBCAB, HBSAB #### [facility] , Monocytes/100 WBC (Bld) 15.2 % Normal . [facility] Comment on above: Performed By: #### H EPACUTE, HBCAB, HBSAB #### [facility] , Neutrophils (Bld) [#/Vol] 5.5 10*3/uL Normal 1.8-7.7 [facility] Comment on above: Performed By: #### H EPACUTE, HBCAB, HBSAB #### [facility] , Neutrophils/100 WBC (Bld) 60.1 % Normal . [facility] Comment on above: Performed By: #### H EPACUTE, HBCAB, HBSAB #### [facility] , NRBC% 0.1 /100{WBC} Normal 0-0.5 [facility] Comment on above: Performed By: #### H EPACUTE, HBCAB, HBSAB #### [facility] , Platelet mean volume (Bld) [Entitic vol] 6.4 fL Low 6.6-10.1 [facility] Comment on above: Performed By: #### H EPACUTE, HBCAB, HBSAB #### [facility] , Platelets (Bld) [#/Vol] 246 10*3/uL Normal 150-450 [facility] Comment on above: Performed By: #### H EPACUTE, HBCAB, HBSAB #### [facility] , RBC (Bld) [#/Vol] 3.18 10*6/uL Low 3.90-5.60 [facility] Comment on above: Performed By: #### H EPACUTE, HBCAB, HBSAB #### [facility] , WBC (Bld) [#/Vol] 9.2 10*3/uL Normal 4.1-10.5 [facility] Comment on above: Performed By: #### H EPACUTE, HBCAB, HBSAB #### [facility] , White Blood Count 9.2 [CFU]/mL Normal 4.1-10.5 [facility] Comment on above: Performed By: #### H EPACUTE, HBCAB, HBSAB #### [facility] , Comprehensive Metabolic Pane babatunde 12-31-2024 Albumin [Mass/Vol] 3.1 g/dL Low 3.5-5.7 [facility] Comment on above: Performed By: #### H EPACUTE, HBCAB, HBSAB #### [facility] , Albumin/Globulin [Mass ratio] 1.0 {ratio} Normal [facility] Comment on above: Performed By: #### H EPACUTE, HBCAB, HBSAB #### [facility] , ALP [Catalytic activity/Vol] 59 U/L Normal 34-104 [facility] Comment on above: Performed By: #### H EPACUTE, HBCAB, HBSAB #### [facility] , ALT [Catalytic activity/Vol] 3 U/L Low 7-52 [facility] Comment on above: Performed By: #### H EPACUTE, HBCAB, HBSAB #### [facility] , Anion gap [Moles/Vol] 12.1 mmol/L Normal 6.0-15.0 [facility] Comment on above: Performed By: #### H EPACUTE, HBCAB, HBSAB #### [facility] , AST [Catalytic activity/Vol] 21 U/L Normal 13-39 [facility] Comment on above: Performed By: #### H EPACUTE, HBCAB, HBSAB #### [facility] , Bilirubin [Mass/Vol] 0.7 mg/dL Normal 0.3-1.0 [facility] Comment on above: Performed By: #### H EPACUTE, HBCAB, HBSAB #### [facility] , Calcium [Mass/Vol] 8.9 mg/dL Normal 8.6-10.3 [facility] Comment on above: Performed By: #### H EPACUTE, HBCAB, HBSAB #### [facility] , Chloride [Moles/Vol] 99 mmol/L Normal 98-107 [facility] Comment on above: Performed By: #### H EPACUTE, HBCAB, HBSAB #### [facility] , CO2 [Moles/Vol] 27.7 mmol/L Normal 21.0-31.0 [facility] Comment on above: Performed By: #### H EPACUTE, HBCAB, HBSAB #### [facility] , Creatinine [Mass/Vol] 4.23 mg/dL High 0.70-1.30 [facility] Comment on above: Performed By: #### H EPACUTE, HBCAB, HBSAB #### [facility] , Creatinine Clr Calc Pharmacy 23.76 Normal [facility] Comment on above: Performed By: #### H EPACUTE, HBCAB, HBSAB #### [facility] , GFR/1.73 sq M.predicted MDRD (S/P/Bld) [Vol rate/Area] 14.891 mL/min/{1.73_m2} Normal [facility] Comment on above: Performed By: #### H EPACUTE, HBCAB, HBSAB #### [facility] , Globulin (S) [Mass/Vol] 3.1 g/dL Normal [facility] Comment on above: Performed By: #### H EPACUTE, HBCAB, HBSAB #### [facility] , Glucose [Mass/Vol] 143 mg/dL High 70-100 [facility] Comment on above: Result Comment: [facility] Glucose Reference Range is dependent on time and content of last meal. Glucose of more than 200 mg/dL in a nonstressed, ambulatory subject supports the diagnosis of Diabetes Mellitus. ADA recommended reference range Performed By: #### H EPACUTE, HBCAB, HBSAB #### [facility] , Potassium [Moles/Vol] 3.8 mmol/L Normal 3.5-5.1 [facility] Comment on above: Performed By: #### H EPACUTE, HBCAB, HBSAB #### [facility] , Protein [Mass/Vol] 6.2 g/dL Low 6.4-8.9 [facility] Comment on above: Performed By: #### H EPACUTE, HBCAB, HBSAB #### [facility] , Sodium [Moles/Vol] 135 mmol/L Low 136-145 [facility] Comment on above: Performed By: #### H EPACUTE, HBCAB, HBSAB #### [facility] , Urea nitrogen [Mass/Vol] 33 mg/dL High 7-25 [facility] Comment on above: Performed By: #### H EPACUTE, HBCAB, HBSAB #### [facility] , Glucose Poct Glucometerson 0 12-31-2024 Glucose [Mass/Vol] 272 mg/dL Normal [facility] Comment on above: Result Comment: [facility] Glucose Reference Range is dependent on time and content of last meal. Glucose of more than 200 mg/dL in a nonstressed, ambulatory subject supports the diagnosis of Diabetes Mellitus. PERFORMED BY: [place] [address] PATHOLOGIST [employer] CARLOS BIRMINGHAM M.D. Performed By: #### G LULS #### Point of Care testing , Glucose [Mass/Vol] 262 mg/dL Normal [facility] Comment on above: Result Comment: [facility] Glucose Reference Range is dependent on time and content of last meal. Glucose of more than 200 mg/dL in a nonstressed, ambulatory subject supports the diagnosis of Diabetes Mellitus. PERFORMED BY: [place] [address] PATHOLOGIST [employer] CARLOS BIRMINGHAM M.D. Performed By: #### R ENJOHN, MG #### [address] Glucose [Mass/Vol] 195 mg/dL Normal [facility] Comment on above: Result Comment: [facility] Glucose Reference Range is dependent on time and content of last meal. Glucose of more than 200 mg/dL in a nonstressed, ambulatory subject supports the diagnosis of Diabetes Mellitus. PERFORMED BY: [place] [address] PATHOLOGIST [employer] CARLOS BIRMINGHAM M.D. Performed By: #### R ENAL, MG #### [address] [address] [facility] Glucose [Mass/Vol] 170 mg/dL Normal [facility] Comment on above: Result Comment: [facility] Glucose Reference Range is dependent on time and content of last meal. Glucose of more than 200 mg/dL in a nonstressed, ambulatory subject supports the diagnosis of Diabetes Mellitus. PERFORMED BY: [facility] [address] [place] [address] PATHOLOGIST [employer] CARLOS BIRMINGHAM M.D. Performed By: #### G LULS #### Point of Care testing , Prealbuminon 12-31-2024 Prealbumin [Mass/Vol] 16.6 mg/dL Low 17.0-34.0 [facility] Comment on above: Result Comment: PERF ORMED BY: [facility] [address] [place] [address] PATHOLOGIST [employer] CARLOS BIRMINGHAM M.D. Performed By: #### H EPACUTE, HBCAB, HBSAB #### [facility] , Comprehensive Metabolic Pane babatunde 12-30-2024 Albumin [Mass/Vol] 3.1 g/dL Low 3.5-5.7 [facility] Comment on above: Performed By: #### H EPACUTE, HBCAB, HBSAB #### [facility] , Albumin/Globulin [Mass ratio] 0.9 {ratio} Normal [facility] Comment on above: Performed By: #### H EPACUTE, HBCAB, HBSAB #### [facility] , ALP [Catalytic activity/Vol] 68 U/L Normal 34-104 [facility] Comment on above: Performed By: #### H EPACUTE, HBCAB, HBSAB #### [facility] , ALT [Catalytic activity/Vol] U/L Low 7-52 [facility] Comment on above: Performed By: #### H EPACUTE, HBCAB, HBSAB #### [facility] , Anion gap [Moles/Vol] 15.4 mmol/L High 6.0-15.0 [facility] Comment on above: Performed By: #### H EPACUTE, HBCAB, HBSAB #### [facility] , AST [Catalytic activity/Vol] 22 U/L Normal 13-39 [facility] Comment on above: Performed By: #### H EPACUTE, HBCAB, HBSAB #### [facility] , Bilirubin [Mass/Vol] 0.5 mg/dL Normal 0.3-1.0 [facility] Comment on above: Performed By: #### H EPACUTE, HBCAB, HBSAB #### [facility] , Calcium [Mass/Vol] 8.9 mg/dL Normal 8.6-10.3 [facility] Comment on above: Performed By: #### H EPACUTE, HBCAB, HBSAB #### [facility] , Chloride [Moles/Vol] 98 mmol/L Normal 98-107 [facility] Comment on above: Performed By: #### H EPACUTE, HBCAB, HBSAB #### [facility] , CO2 [Moles/Vol] 25.5 mmol/L Normal 21.0-31.0 [facility] Comment on above: Performed By: #### H EPACUTE, HBCAB, HBSAB #### [facility] , Creatinine [Mass/Vol] 6.08 mg/dL High 0.70-1.30 [facility] Comment on above: Performed By: #### H EPACUTE, HBCAB, HBSAB #### [facility] , Creatinine Clr Calc Pharmacy 16.59 Normal [facility] Comment on above: Performed By: #### H EPACUTE, HBCAB, HBSAB #### [facility] , GFR/1.73 sq M.predicted MDRD (S/P/Bld) [Vol rate/Area] 9.635 mL/min/{1.73_m2} Normal [facility] Comment on above: Performed By: #### H EPACUTE, HBCAB, HBSAB #### [facility] , Globulin (S) [Mass/Vol] 3.5 g/dL Normal [facility] Comment on above: Performed By: #### H EPACUTE, HBCAB, HBSAB #### [facility] , Glucose [Mass/Vol] 108 mg/dL High 70-100 [facility] Comment on above: Result Comment: [facility] Glucose Reference Range is dependent on time and content of last meal. Glucose of more than 200 mg/dL in a nonstressed, ambulatory subject supports the diagnosis of Diabetes Mellitus. ADA recommended reference range Performed By: #### H EPACUTE, HBCAB, HBSAB #### [facility] , Potassium [Moles/Vol] 3.9 mmol/L Normal 3.5-5.1 [facility] Comment on above: Performed By: #### H EPACUTE, HBCAB, HBSAB #### [facility] , Protein [Mass/Vol] 6.6 g/dL Normal 6.4-8.9 [facility] Comment on above: Performed By: #### H EPACUTE, HBCAB, HBSAB #### [facility] , Sodium [Moles/Vol] 135 mmol/L Low 136-145 [facility] Comment on above: Performed By: #### H EPACUTE, HBCAB, HBSAB #### [facility] , Urea nitrogen [Mass/Vol] 54 mg/dL High 7-25 [facility] Comment on above: Performed By: #### H EPACUTE, HBCAB, HBSAB #### [facility] , Diff and CBCon 12-30-2024 Anisocytosis Ql (Bld) Moderate Normal [facility] Comment on above: Performed By: #### H EPACUTE, HBCAB, HBSAB #### [facility] , Band form neutrophils/100 WBC (Bld) 1 % Normal 0-5 [facility] Comment on above: Performed By: #### H EPACUTE, HBCAB, HBSAB #### [facility] , Eosinophils/100 WBC (Bld) 8 % High 1-3 [facility] Comment on above: Performed By: #### H EPACUTE, HBCAB, HBSAB #### [facility] , Erythrocyte distribution width (RBC) [Ratio] 14.1 % Normal 12.0-14.8 [facility] Comment on above: Performed By: #### H EPACUTE, HBCAB, HBSAB #### [facility] , Hematocrit (Bld) [Volume fraction] 29.7 % Low 38.8-50.0 [facility] Comment on above: Performed By: #### H EPACUTE, HBCAB, HBSAB #### [facility] , Hemoglobin (Bld) [Mass/Vol] 9.9 g/dL Low 13.0-17.0 [facility] Comment on above: Performed By: #### H EPACUTE, HBCAB, HBSAB #### [facility] , Hypochromasia Slight Normal [facility] Comment on above: Performed By: #### H EPACUTE, HBCAB, HBSAB #### [facility] , Lymphocytes/100 WBC (Bld) 10 % Low 18-42 [facility] Comment on above: Performed By: #### H EPACUTE, HBCAB, HBSAB #### [facility] , MCH (RBC) [Entitic mass] 29.1 pg Normal 27.5-35.2 [facility] Comment on above: Performed By: #### H EPACUTE, HBCAB, HBSAB #### [facility] , MCV (RBC) [Entitic vol] 87.6 fL Normal 83.5-101 [facility] Comment on above: Performed By: #### H EPACUTE, HBCAB, HBSAB #### [facility] , Mean Corpuscular HGB Conc 33.3 g/dL Normal 32.5-35.6 [facility] Comment on above: Performed By: #### H EPACUTE, HBCAB, HBSAB #### [facility] , Metamyelocytes 3 % High 0-0 [facility] Comment on above: Performed By: #### H EPACUTE, HBCAB, HBSAB #### [facility] , Microcytosis Slight Normal [facility] Comment on above: Performed By: #### H EPACUTE, HBCAB, HBSAB #### [facility] , Monocytes/100 WBC (Bld) 7 % Normal 2-11 [facility] Comment on above: Performed By: #### H EPACUTE, HBCAB, HBSAB #### [facility] , Platelet Estimate Normal Normal Normal [facility] Comment on above: Performed By: #### H EPACUTE, HBCAB, HBSAB #### [facility] , Platelet mean volume (Bld) [Entitic vol] 6.7 fL Normal 6.6-10.1 [facility] Comment on above: Performed By: #### H EPACUTE, HBCAB, HBSAB #### [facility] , Platelet Morphology Normal Normal Normal [facility] Comment on above: Result Comment: PERF ORMED BY: [facility] Raheem MAGAÑ[place] [address] PATHOLOGIST [employer] CARLOS BIRMINGHAM M.D. Performed By: #### H EPACUTE, HBCAB, HBSAB #### [facility] , Platelets (Bld) [#/Vol] 237 10*3/uL Normal 150-450 [facility] Comment on above: Performed By: #### H EPACUTE, HBCAB, HBSAB #### [facility] , Poikilocytosis Slight Normal [facility] Comment on above: Performed By: #### H EPACUTE, HBCAB, HBSAB #### [facility] , Polychromasia Slight Normal [facility] Comment on above: Performed By: #### H EPACUTE, HBCAB, HBSAB #### [facility] , RBC (Bld) [#/Vol] 3.39 10*6/uL Low 3.90-5.60 [facility] Comment on above: Performed By: #### H EPACUTE, HBCAB, HBSAB #### [facility] , Segmented neutrophils/100 WBC (Bld) 72 % High 50-70 [facility] Comment on above: Performed By: #### H EPACUTE, HBCAB, HBSAB #### [facility] , WBC (Bld) [#/Vol] 10.1 10*3/uL Normal 4.1-10.5 [facility] Comment on above: Performed By: #### H EPACUTE, HBCAB, HBSAB #### [facility] , White Blood Count 10.1 [CFU]/mL Normal 4.1-10.5 [facility] Comment on above: Performed By: #### H EPACUTE, HBCAB, HBSAB #### [facility] , Glucose Poct Glucometerson 0 12-30-2024 Glucose [Mass/Vol] 187 mg/dL Normal [facility] Comment on above: Result Comment: [facility] Glucose Reference Range is dependent on time and content of last meal. Glucose of more than 200 mg/dL in a nonstressed, ambulatory subject supports the diagnosis of Diabetes Mellitus. PERFORMED BY: [place] [id number] PATHOLOGIST [employer] CARLOS BIRMINGHAM M.D. Performed By: #### G LULS #### Point of Care testing , Glucose [Mass/Vol] 269 mg/dL Normal [facility] Comment on above: Result Comment: [facility] Glucose Reference Range is dependent on time and content of last meal. Glucose of more than 200 mg/dL in a nonstressed, ambulatory subject supports the diagnosis of Diabetes Mellitus. PERFORMED BY: [place] [id number] PATHOLOGIST [employer] CARLOS BIRMINGHAM M.D. Performed By: #### R YUMIKO, MG #### [address] Commemt1 Glu2: Cleaned Meter Normal [facility] Comment on above: Result Comment: PERF ORMED BY: [place] [address] PATHOLOGIST [employer] CARLOS BIRMINGHAM M.D. Performed By: #### G LULS #### Point of Care testing , Glucose [Mass/Vol] 109 mg/dL Normal [facility] Comment on above: Result Comment: [facility] Glucose Reference Range is dependent on time and content of last meal. Glucose of more than 200 mg/dL in a nonstressed, ambulatory subject supports the diagnosis of Diabetes Mellitus. Performed By: #### G LULS #### Point of Care testing , Glucose [Mass/Vol] 109 mg/dL Normal [facility] Comment on above: Result Comment: [facility] Glucose Reference Range is dependent on time and content of last meal. Glucose of more than 200 mg/dL in a nonstressed, ambulatory subject supports the diagnosis of Diabetes Mellitus. PERFORMED BY: [place] [address] PATHOLOGIST [employer] CARLOS BIRMINGHAM M.D. Performed By: #### G LULS #### Point of Care testing , Magnesiumon 12-30-2024 Magnesium [Mass/Vol] 2.6 mg/dL Normal 1.9-2.7 [facility] Comment on above: Result Comment: PERF ORMED BY: [place] [address] PATHOLOGIST [employer] CARLOS BIRMINGHAM M.D. Performed By: #### H EPACUTE, HBCAB, HBSAB #### [facility] , A1C with Estimated Average G luon 12-29-2024 Glucose [Mass/Vol] 255 mg/dL Normal [facility] Comment on above: Result Comment: PERF ORMED BY: [place] [address] PATHOLOGIST [employer] CARLOS BIRMINGHAM M.D. Performed By: #### H EPACUTE, HBCAB, HBSAB #### [facility] , HbA1c (Bld) [Mass fraction] 10.5 % High 4.3-5.6 [facility] Comment on above: Result Comment: Incr eased risk for diabetes: 5.7 - 6.4 diabetes: >6.4 glycemic control for adults with diabetes: <7.0 Performed By: #### H EPACUTE, HBCAB, HBSAB #### [facility] , Comprehensive Metabolic Pane babatunde 12-29-2024 Albumin [Mass/Vol] 3.1 g/dL Low 3.5-5.7 [facility] Comment on above: Performed By: #### H EPACUTE, HBCAB, HBSAB #### [facility] , Albumin/Globulin [Mass ratio] 0.9 {ratio} Normal [facility] Comment on above: Performed By: #### H EPACUTE, HBCAB, HBSAB #### [facility] , ALP [Catalytic activity/Vol] 69 U/L Normal 34-104 [facility] Comment on above: Performed By: #### H EPACUTE, HBCAB, HBSAB #### [facility] , ALT [Catalytic activity/Vol] 3 U/L Low 7-52 [facility] Comment on above: Performed By: #### H EPACUTE, HBCAB, HBSAB #### [facility] , Anion gap [Moles/Vol] 12.2 mmol/L Normal 6.0-15.0 [facility] Comment on above: Performed By: #### H EPACUTE, HBCAB, HBSAB #### [facility] , AST [Catalytic activity/Vol] 21 U/L Normal 13-39 [facility] Comment on above: Performed By: #### H EPACUTE, HBCAB, HBSAB #### [facility] , Bilirubin [Mass/Vol] 0.6 mg/dL Normal 0.3-1.0 [facility] Comment on above: Performed By: #### H EPACUTE, HBCAB, HBSAB #### [facility] , Calcium [Mass/Vol] 8.9 mg/dL Normal 8.6-10.3 [facility] Comment on above: Performed By: #### H EPACUTE, HBCAB, HBSAB #### [facility] , Chloride [Moles/Vol] 95 mmol/L Low 98-107 [facility] Comment on above: Performed By: #### H EPACUTE, HBCAB, HBSAB #### [facility] , CO2 [Moles/Vol] 30.5 mmol/L Normal 21.0-31.0 [facility] Group Comment on above: Performed By: #### H EPACUTE, HBCAB, HBSAB #### [facility] , Creatinine [Mass/Vol] 5.57 mg/dL High 0.70-1.30 [facility] Comment on above: Performed By: #### H EPACUTE, HBCAB, HBSAB #### [facility] , Creatinine Clr Calc Pharmacy 18.11 Normal [facility] Comment on above: Performed By: #### H EPACUTE, HBCAB, HBSAB #### [facility] , GFR/1.73 sq M.predicted MDRD (S/P/Bld) [Vol rate/Area] 10.703 mL/min/{1.73_m2} Normal [facility] Comment on above: Performed By: #### H EPACUTE, HBCAB, HBSAB #### [facility] , Globulin (S) [Mass/Vol] 3.5 g/dL Normal [facility] Comment on above: Performed By: #### H EPACUTE, HBCAB, HBSAB #### [facility] , Glucose [Mass/Vol] 175 mg/dL High 70-100 [facility] Comment on above: Result Comment: [facility] Glucose Reference Range is dependent on time and content of last meal. Glucose of more than 200 mg/dL in a nonstressed, ambulatory subject supports the diagnosis of Diabetes Mellitus. ADA recommended reference range Performed By: #### H EPACUTE, HBCAB, HBSAB #### [facility] , Potassium [Moles/Vol] 3.7 mmol/L Normal 3.5-5.1 [facility] Comment on above: Performed By: #### H EPACUTE, HBCAB, HBSAB #### [facility] , Protein [Mass/Vol] 6.6 g/dL Normal 6.4-8.9 [facility] Comment on above: Performed By: #### H EPACUTE, HBCAB, HBSAB #### [facility] , Sodium [Moles/Vol] 134 mmol/L Low 136-145 [facility] Comment on above: Performed By: #### H EPACUTE, HBCAB, HBSAB #### [facility] , Urea nitrogen [Mass/Vol] 46 mg/dL High 7-25 [facility] Comment on above: Performed By: #### H EPACUTE, HBCAB, HBSAB #### [facility] , Diff and CBCon 12-29-2024 Anisocytosis Ql (Bld) Slight Normal [facility] Comment on above: Performed By: #### H EPACUTE, HBCAB, HBSAB #### [facility] , Eosinophils/100 WBC (Bld) 7 % High 1-3 [facility] Comment on above: Performed By: #### H EPACUTE, HBCAB, HBSAB #### [facility] , Erythrocyte distribution width (RBC) [Ratio] 14.7 % Normal 12.0-14.8 [facility] Comment on above: Performed By: #### H EPACUTE, HBCAB, HBSAB #### [facility] , Hematocrit (Bld) [Volume fraction] 28.5 % Low 38.8-50.0 [facility] Comment on above: Performed By: #### H EPACUTE, HBCAB, HBSAB #### [facility] , Hemoglobin (Bld) [Mass/Vol] 9.4 g/dL Low 13.0-17.0 [facility] Comment on above: Performed By: #### H EPACUTE, HBCAB, HBSAB #### [facility] , Hypochromasia Slight Normal [facility] Comment on above: Performed By: #### H EPACUTE, HBCAB, HBSAB #### [facility] , Lymphocytes/100 WBC (Bld) 15 % Low 18-42 [facility] Comment on above: Performed By: #### H EPACUTE, HBCAB, HBSAB #### [facility] , MCH (RBC) [Entitic mass] 29.1 pg Normal 27.5-35.2 [facility] Comment on above: Performed By: #### H EPACUTE, HBCAB, HBSAB #### [facility] , MCV (RBC) [Entitic vol] 88.5 fL Normal 83.5-101 [facility] Comment on above: Performed By: #### H EPACUTE, HBCAB, HBSAB #### [facility] , Mean Corpuscular HGB Conc 32.8 g/dL Normal 32.5-35.6 [facility] Comment on above: Performed By: #### H EPACUTE, HBCAB, HBSAB #### [facility] , Microcytosis Slight Normal [facility] Comment on above: Performed By: #### H EPACUTE, HBCAB, HBSAB #### [facility] , Monocytes/100 WBC (Bld) 13 % High 2-11 [facility] Comment on above: Performed By: #### H EPACUTE, HBCAB, HBSAB #### [facility] , Myelocytes 2 % High 0-0 [facility] Comment on above: Performed By: #### H EPACUTE, HBCAB, HBSAB #### [facility] , Platelet Estimate Normal Normal Normal [facility] Comment on above: Performed By: #### H EPACUTE, HBCAB, HBSAB #### [facility] , Platelet mean volume (Bld) [Entitic vol] 7.1 fL Normal 6.6-10.1 [facility] Comment on above: Performed By: #### H EPACUTE, HBCAB, HBSAB #### [facility] , Platelet Morphology Normal Normal Normal [facility] Comment on above: Result Comment: PERF ORMED BY: [place] [id number] [address] [address] PATHOLOGIST [employer] CARLOS BIRMINGHAM M.D. Performed By: #### H EPACUTE, HBCAB, HBSAB #### [facility] , Platelets (Bld) [#/Vol] 240 10*3/uL Normal 150-450 [facility] Comment on above: Performed By: #### H EPACUTE, HBCAB, HBSAB #### [facility] , Polychromasia Slight Normal [facility] Comment on above: Performed By: #### H EPACUTE, HBCAB, HBSAB #### [facility] , RBC (Bld) [#/Vol] 3.22 10*6/uL Low 3.90-5.60 [facility] Comment on above: Performed By: #### H EPACUTE, HBCAB, HBSAB #### [facility] , Segmented neutrophils/100 WBC (Bld) 63 % Normal 50-70 [facility] Comment on above: Performed By: #### H EPACUTE, HBCAB, HBSAB #### [facility] , WBC (Bld) [#/Vol] 9.9 10*3/uL Normal 4.1-10.5 [facility] Comment on above: Performed By: #### H EPACUTE, HBCAB, HBSAB #### [facility] , White Blood Count 9.9 [CFU]/mL Normal 4.1-10.5 [facility] Comment on above: Performed By: #### H EPACUTE, HBCAB, HBSAB #### [facility] , Glucose Poct Glucometerson 0 12-29-2024 Glucose [Mass/Vol] 218 mg/dL Normal [facility] Comment on above: Result Comment: [facility] Glucose Reference Range is dependent on time and content of last meal. Glucose of more than 200 mg/dL in a nonstressed, ambulatory subject supports the diagnosis of Diabetes Mellitus. PERFORMED BY: [place] [address] PATHOLOGIST [employer] CARLOS BIRMINGHAM M.D. Performed By: #### H EPACUTE, HBCAB, HBSAB #### [facility] , Glucose [Mass/Vol] 116 mg/dL Normal [facility] Comment on above: Result Comment: [facility] Glucose Reference Range is dependent on time and content of last meal. Glucose of more than 200 mg/dL in a nonstressed, ambulatory subject supports the diagnosis of Diabetes Mellitus. PERFORMED BY: [place] [address] PATHOLOGIST [employer] CARLOS BIRMINGHAM M.D. Performed By: #### R ENAL, MG #### [address] Glucose [Mass/Vol] 172 mg/dL Normal [facility] Comment on above: Result Comment: [facility] Glucose Reference Range is dependent on time and content of last meal. Glucose of more than 200 mg/dL in a nonstressed, ambulatory subject supports the diagnosis of Diabetes Mellitus. PERFORMED BY: [place] [address] PATHOLOGIST [employer] CARLOS BIRMINGHAM M.D. Performed By: #### H EPACUTE, HBCAB, HBSAB #### [facility] , Glucose [Mass/Vol] 142 mg/dL Normal [facility] Comment on above: Result Comment: [facility] Glucose Reference Range is dependent on time and content of last meal. Glucose of more than 200 mg/dL in a nonstressed, ambulatory subject supports the diagnosis of Diabetes Mellitus. PERFORMED BY: [address] [place] [address] PATHOLOGIST [employer] CARLOS BIRMINGHAM M.D. Performed By: #### G LULS #### [facility] , Magnesiumon 12-29-2024 Magnesium [Mass/Vol] 2.3 mg/dL Normal 1.9-2.7 [facility] Comment on above: Result Comment: PERF ORMED BY: [address] [place] [address] PATHOLOGIST [employer] CARLOS BIRMINGHAM M.D. Performed By: #### H EPACUTE, HBCAB, HBSAB #### [facility] , Complete Blood Count Auto Di ffon 12-28-2024 Basophils (Bld) [#/Vol] 0.1 10*3/uL Normal 0.0-0.2 [facility] Comment on above: Result Comment: PERF ORMED BY: [address] [place] [address] PATHOLOGIST [employer] CARLOS BIRMINGHAM M.D. Performed By: #### G LULS #### [facility] , Basophils/100 WBC (Bld) 0.9 % Normal . [facility] Comment on above: Performed By: #### G LULS #### [facility] , Eosinophils (Bld) [#/Vol] 0.5 10*3/uL High 0.0-0.45 [facility] Comment on above: Performed By: #### G LULS #### [facility] , Eosinophils/100 WBC (Bld) 6.1 % Normal . [facility] Comment on above: Performed By: #### G LULS #### [facility] , Erythrocyte distribution width (RBC) [Ratio] 14.7 % Normal 12.0-14.8 [facility] Comment on above: Performed By: #### G LULS #### [facility] , Hematocrit (Bld) [Volume fraction] 25.9 % Low 38.8-50.0 [facility] Comment on above: Performed By: #### G LULS #### [facility] , Hemoglobin (Bld) [Mass/Vol] 8.7 g/dL Low 13.0-17.0 [facility] Comment on above: Performed By: #### G LULS #### [facility] , Lymphocytes (Bld) [#/Vol] 1.2 10*3/uL Normal 1.00-4.8 [facility] Comment on above: Performed By: #### G LULS #### [facility] , Lymphocytes/100 WBC (Bld) 13.2 % Normal . [facility] Comment on above: Performed By: #### G LULS #### [facility] , MCH (RBC) [Entitic mass] 29.5 pg Normal 27.5-35.2 [facility] Comment on above: Performed By: #### G LULS #### [facility] , MCV (RBC) [Entitic vol] 87.7 fL Normal 83.5-101 [facility] Comment on above: Performed By: #### G LULS #### [facility] , Mean Corpuscular HGB Conc 33.6 g/dL Normal 32.5-35.6 [facility] Comment on above: Performed By: #### G LULS #### [facility] , Monocytes (Bld) [#/Vol] 1.0 10*3/uL High 0.0-0.8 [facility] Comment on above: Performed By: #### G LULS #### [facility] , Monocytes/100 WBC (Bld) 11.6 % Normal . [facility] Comment on above: Performed By: #### G LULS #### [facility] , Neutrophils (Bld) [#/Vol] 6.0 10*3/uL Normal 1.8-7.7 [facility] Comment on above: Performed By: #### G LULS #### [facility] , Neutrophils/100 WBC (Bld) 68.2 % Normal . [facility] Comment on above: Performed By: #### G LULS #### [facility] , NRBC% 0.0 /100{WBC} Normal 0-0.5 [facility] Comment on above: Performed By: #### G LULS #### [facility] , Platelet mean volume (Bld) [Entitic vol] 8.2 fL Normal 6.6-10.1 [facility] Comment on above: Performed By: #### G LULS #### [facility] , Platelets (Bld) [#/Vol] 150 10*3/uL Abnormal 150-450 [facility] Comment on above: Performed By: #### G LULS #### [facility] testing , RBC (Bld) [#/Vol] 2.96 10*6/uL Low 3.90-5.60 [facility] Comment on above: Performed By: #### G LULS #### [facility] , WBC (Bld) [#/Vol] 8.7 10*3/uL Normal 4.1-10.5 [facility] Comment on above: Performed By: #### G LULS #### [facility] , White Blood Count 8.7 [CFU]/mL Normal 4.1-10.5 [facility] Comment on above: Performed By: #### G LULS #### [facility] , Comprehensive Metabolic Pane babatunde 12-28-2024 Albumin [Mass/Vol] 2.8 g/dL Low 3.5-5.7 [facility] Comment on above: Performed By: #### G LULS #### [facility] , Albumin/Globulin [Mass ratio] 0.9 {ratio} Normal [facility] Comment on above: Performed By: #### G LULS #### [facility] , ALP [Catalytic activity/Vol] 62 U/L Normal 34-104 [facility] Comment on above: Performed By: #### G LULS #### [facility] , ALT [Catalytic activity/Vol] U/L Low 7-52 [facility] Comment on above: Performed By: #### G LULS #### [facility] , Anion gap [Moles/Vol] 17.2 mmol/L High 6.0-15.0 [facility] Comment on above: Performed By: #### G LULS #### [facility] , AST [Catalytic activity/Vol] 20 U/L Normal 13-39 [facility] Comment on above: Performed By: #### G LULS #### [facility] , Bilirubin [Mass/Vol] 0.5 mg/dL Normal 0.3-1.0 [facility] Comment on above: Performed By: #### G LULS #### [facility] , Calcium [Mass/Vol] 8.4 mg/dL Low 8.6-10.3 [facility] Comment on above: Performed By: #### G LULS #### [facility] , Chloride [Moles/Vol] 96 mmol/L Low 98-107 [facility] Comment on above: Performed By: #### G LULS #### [facility] , CO2 [Moles/Vol] 23.9 mmol/L Normal 21.0-31.0 [facility] Comment on above: Performed By: #### G LULS #### [facility] , Creatinine [Mass/Vol] 7.26 mg/dL High 0.70-1.30 [facility] Comment on above: Performed By: #### G LULS #### [facility] , Creatinine Clr Calc Pharmacy 15.82 Normal [facility] Comment on above: Performed By: #### G LULS #### [facility] , GFR/1.73 sq M.predicted MDRD (S/P/Bld) [Vol rate/Area] 7.787 mL/min/{1.73_m2} Normal [facility] Comment on above: Performed By: #### G LULS #### [facility] , Globulin (S) [Mass/Vol] 3.2 g/dL Normal [facility] Comment on above: Performed By: #### G LULS #### [facility] , Glucose [Mass/Vol] 220 mg/dL High 70-100 [facility] Comment on above: Result Comment: [facility] Glucose Reference Range is dependent on time and content of last meal. Glucose of more than 200 mg/dL in a nonstressed, ambulatory subject supports the diagnosis of Diabetes Mellitus. ADA recommended reference range Performed By: #### G LULS #### [facility] , Potassium [Moles/Vol] 4.1 mmol/L Normal 3.5-5.1 [facility] Comment on above: Result Comment: Hemo lysis is present at a level that could interfere with the result. Contact lab if redraw is required Performed By: #### G LULS #### [facility] , Protein [Mass/Vol] 6.0 g/dL Low 6.4-8.9 [facility] Comment on above: Performed By: #### G LULS #### [facility] Care testing , Sodium [Moles/Vol] 133 mmol/L Low 136-145 [facility] Comment on above: Performed By: #### G LULS #### [facility] Care testing , Urea nitrogen [Mass/Vol] 73 mg/dL High 7-25 [facility] Comment on above: Performed By: #### G LULS #### [facility] Care testing , Glucose Poct Glucometerson 0 12-28-2024 Glucose [Mass/Vol] 224 mg/dL Normal [facility] Comment on above: Result Comment: [facility] Glucose Reference Range is dependent on time and content of last meal. Glucose of more than 200 mg/dL in a nonstressed, ambulatory subject supports the diagnosis of Diabetes Mellitus. PERFORMED BY: [facility] [address] [address] PATHOLOGIST [employer] CARLOS BIRMINGHAM M.D. Performed By: #### H EPACUTE, HBCAB, HBSAB #### [facility] , Glucose [Mass/Vol] 204 mg/dL Normal [facility] Comment on above: Result Comment: [facility] Glucose Reference Range is dependent on time and content of last meal. Glucose of more than 200 mg/dL in a nonstressed, ambulatory subject supports the diagnosis of Diabetes Mellitus. PERFORMED BY: [place] [id number] PATHOLOGIST [employer] CARLOS BIRMINGHAM M.D. Performed By: #### G LUBRANDY #### [facility] Care [facility] , Glucose [Mass/Vol] 280 mg/dL Normal [facility] Comment on above: Result Comment: [facility] Glucose Reference Range is dependent on time and content of last meal. Glucose of more than 200 mg/dL in a nonstressed, ambulatory subject supports the diagnosis of Diabetes Mellitus. PERFORMED BY: [place] [id number] PATHOLOGIST [employer] CARLOS BIRMINGHAM M.D. Performed By: #### H EPACUTE, HBCAB, HBSAB #### [facility] , Magnesiumon 12-28-2024 Magnesium [Mass/Vol] 2.7 mg/dL Normal 1.9-2.7 [facility] Comment on above: Result Comment: PERF ORMED BY: [place] [id number] PATHOLOGIST [employer] CARLOS BIRMINGHAM M.D. Performed By: #### G LUBRANDY #### Point of Care testing , Glucose Poct Glucometerson 0 12-27-2024 Commemt1 Glu2: Cleaned Meter Normal [facility] Comment on above: Result Comment: PERF ORMED BY: [place] [id number] PATHOLOGIST [employer] CARLOS BIRMINGHAM M.D. Performed By: #### H EPACUTE, HBCAB, HBSAB #### [facility] , Glucose [Mass/Vol] 250 mg/dL Normal [facility] Comment on above: Result Comment: [facility] Glucose Reference Range is dependent on time and content of last meal. Glucose of more than 200 mg/dL in a nonstressed, ambulatory subject supports the diagnosis of Diabetes Mellitus. Performed By: #### H EPACUTE, HBCAB, HBSAB #### [facility] , Glucose [Mass/Vol] 261 mg/dL Normal [facility] Comment on above: Result Comment: [facility] Glucose Reference Range is dependent on time and content of last meal. Glucose of more than 200 mg/dL in a nonstressed, ambulatory subject supports the diagnosis of Diabetes Mellitus. PERFORMED BY: [address] [address] PATHOLOGIST [employer] CARLOS BIRMINGHAM M.D. Performed By: #### H EPACUTE, HBCAB, HBSAB #### [facility] , Glucose [Mass/Vol] 185 mg/dL Normal [facility] Comment on above: Result Comment: [facility] Glucose Reference Range is dependent on time and content of last meal. Glucose of more than 200 mg/dL in a nonstressed, ambulatory subject supports the diagnosis of Diabetes Mellitus. PERFORMED BY: [address] [address] PATHOLOGIST [employer] CARLOS BIRMINGHAM M.D. Performed By: #### H EPACUTE, HBCAB, HBSAB #### [facility] , Glucose [Mass/Vol] 114 mg/dL Normal [facility] Comment on above: Result Comment: [facility] Glucose Reference Range is dependent on time and content of last meal. Glucose of more than 200 mg/dL in a nonstressed, ambulatory subject supports the diagnosis of Diabetes Mellitus. PERFORMED BY: [address] [address] PATHOLOGIST [employer] CARLOS BIRMINGHAM M.D. Performed By: #### H EPACUTE, HBCAB, HBSAB #### [facility] , Hemogram CBC Without Diffon 12-27-2024 Erythrocyte distribution width (RBC) [Ratio] 14.7 % Normal 12.0-14.8 [facility] Comment on above: Performed By: #### G INEZ #### Point of Care testing , Hematocrit (Bld) [Volume fraction] 29.1 % Low 38.8-50.0 [facility] Comment on above: Performed By: #### G LUBRANDY #### Point of Care testing , Hemoglobin (Bld) [Mass/Vol] 9.7 g/dL Low 13.0-17.0 [facility] Comment on above: Performed By: #### G LULS #### Point of Care testing , MCH (RBC) [Entitic mass] 28.9 pg Normal 27.5-35.2 [facility] Comment on above: Performed By: #### G LULS #### Point of Care testing , MCV (RBC) [Entitic vol] 87.0 fL Normal 83.5-101 [facility] Comment on above: Performed By: #### G LULS #### Point of Care testing , Mean Corpuscular HGB Conc 33.3 g/dL Normal 32.5-35.6 [facility] Comment on above: Performed By: #### G LULS #### Point of Care testing , Platelet mean volume (Bld) [Entitic vol] 7.1 fL Normal 6.6-10.1 [facility] Comment on above: Result Comment: PERF ORMED BY: [address] [place] [address] PATHOLOGIST [employer] CARLOS BIRMINGHAM M.D. Performed By: #### G LULS #### Point of Care testing , Platelets (Bld) [#/Vol] 202 10*3/uL Normal 150-450 [facility] Comment on above: Performed By: #### G LULS #### Point of Care testing , RBC (Bld) [#/Vol] 3.34 10*6/uL Low 3.90-5.60 [facility] Comment on above: Performed By: #### G LULS #### Point of Care testing , White Blood Count 10.0 [CFU]/mL Normal 4.1-10.5 [facility] Comment on above: Performed By: #### G LULS #### Point of Care testing , Renal Function Panelon 12-27 Albumin [Mass/Vol] 3.1 g/dL Low 3.5-5.7 [facility] Comment on above: Performed By: #### G LULS #### Point of Care testing , Anion gap [Moles/Vol] 16.0 mmol/L High 6.0-15.0 [facility] Comment on above: Performed By: #### G LULS #### Point of Care testing , Calcium [Mass/Vol] 8.8 mg/dL Normal 8.6-10.3 [facility] Comment on above: Performed By: #### G LULS #### Point of Care testing , Chloride [Moles/Vol] 95 mmol/L Low 98-107 [facility] Comment on above: Performed By: #### G LULS #### Point of Care testing , CO2 [Moles/Vol] 28.1 mmol/L Normal 21.0-31.0 [facility] Comment on above: Performed By: #### G LULS #### Point of Care testing , Creatinine [Mass/Vol] 6.35 mg/dL High 0.70-1.30 [facility] Comment on above: Performed By: #### G LULS #### Point of Care testing , Creatinine Clr Calc Pharmacy 18.04 Normal [facility] Comment on above: Result Comment: PERF ORMED BY: [address] [place] [address] PATHOLOGIST [employer] CARLOS BIRMINGHAM M.D. Performed By: #### G LULS #### Point of Care testing , GFR/1.73 sq M.predicted MDRD (S/P/Bld) [Vol rate/Area] 9.145 mL/min/{1.73_m2} Normal [facility] Comment on above: Performed By: #### G LULS #### Point of Care testing , Glucose [Mass/Vol] 126 mg/dL High 70-100 [facility] Comment on above: Result Comment: [facility] Glucose Reference Range is dependent on time and content of last meal. Glucose of more than 200 mg/dL in a nonstressed, ambulatory subject supports the diagnosis of Diabetes Mellitus. ADA recommended reference range Performed By: #### G LULS #### Point of Care testing , Phosphate [Mass/Vol] 5.4 mg/dL High 2.5-4.5 [facility] Comment on above: Performed By: #### G LULS #### Point of Care testing , Potassium [Moles/Vol] 4.1 mmol/L Normal 3.5-5.1 [facility] Comment on above: Performed By: #### G LULS #### Point of Care testing , Sodium [Moles/Vol] 135 mmol/L Low 136-145 [facility] Comment on above: Performed By: #### G LULS #### Point of Care testing , Urea nitrogen [Mass/Vol] 65 mg/dL High 7-25 [facility] Comment on above: Performed By: #### G LULS #### Point of Care testing , Complete Blood Count Auto Di ffon 12-26-2024 Basophils (Bld) [#/Vol] 0.0 10*3/uL Normal 0.0-0.2 [facility] Comment on above: Result Comment: PERF ORMED BY: [place] [address] PATHOLOGIST [employer] CARLOS BIRMINGHAM M.D. Performed By: #### R ENAL #### [address] [address] Basophils/100 WBC (Bld) 0.4 % Normal . [facility] Comment on above: Performed By: #### R ENAL #### [address] Eosinophils (Bld) [#/Vol] 0.3 10*3/uL Normal 0.0-0.45 [facility] Comment on above: Performed By: #### R ENAL #### [address] Eosinophils/100 WBC (Bld) 2.8 % Normal . [facility] Comment on above: Performed By: #### R ENAL #### [address] Erythrocyte distribution width (RBC) [Ratio] 15.3 % High 12.0-14.8 [facility] Comment on above: Performed By: #### R ENAL #### [address] Hematocrit (Bld) [Volume fraction] 30.7 % Low 38.8-50.0 [facility] Comment on above: Performed By: #### R ENAL #### [address] Hemoglobin (Bld) [Mass/Vol] 10.1 g/dL Low 13.0-17.0 [facility] Comment on above: Performed By: #### R ENAL #### [address] Lymphocytes (Bld) [#/Vol] 1.3 10*3/uL Normal 1.00-4.8 [facility] Comment on above: Performed By: #### R ENAL #### [address] Lymphocytes/100 WBC (Bld) 12.8 % Normal . [facility] Comment on above: Performed By: #### R ENAL #### [address] MCH (RBC) [Entitic mass] 28.9 pg Normal 27.5-35.2 [facility] Comment on above: Performed By: #### R ENAL #### [address] MCV (RBC) [Entitic vol] 87.7 fL Normal 83.5-101 [facility] Comment on above: Performed By: #### R ENAL #### [address] Mean Corpuscular HGB Conc 33.0 g/dL Normal 32.5-35.6 [facility] Comment on above: Performed By: #### R ENAL #### [address] Monocytes (Bld) [#/Vol] 0.9 10*3/uL High 0.0-0.8 [facility] Comment on above: Performed By: #### R ENAL #### [address] [address] [place] Monocytes/100 WBC (Bld) 9.1 % Normal . [facility] Comment on above: Performed By: #### R ENAL #### [address] Neutrophils (Bld) [#/Vol] 7.4 10*3/uL Normal 1.8-7.7 [facility] Comment on above: Performed By: #### R ENAL #### [address] Neutrophils/100 WBC (Bld) 74.9 % Normal . [facility] Comment on above: Performed By: #### R ENAL #### [address] NRBC% 0.1 /100{WBC} Normal 0-0.5 [facility] Comment on above: Performed By: #### R ENAL #### [address] Platelet mean volume (Bld) [Entitic vol] 7.4 fL Normal 6.6-10.1 [facility] Comment on above: Performed By: #### R ENAL #### [address] Platelets (Bld) [#/Vol] 176 10*3/uL Normal 150-450 [facility] Comment on above: Performed By: #### R ENAL #### [place] [address] [place] RBC (Bld) [#/Vol] 3.50 10*6/uL Low 3.90-5.60 [facility] Comment on above: Performed By: #### R ENAL #### [address] WBC (Bld) [#/Vol] 10.0 10*3/uL Normal 4.1-10.5 [facility] Comment on above: Performed By: #### R ENAL #### [address] White Blood Count 10.0 [CFU]/mL Normal 4.1-10.5 [facility] Comment on above: Performed By: #### R ENAL #### [address] Glucose Poct Glucometerson 0 12-26-2024 Glucose [Mass/Vol] 175 mg/dL Normal [facility] Comment on above: Result Comment: [facility] Glucose Reference Range is dependent on time and content of last meal. Glucose of more than 200 mg/dL in a nonstressed, ambulatory subject supports the diagnosis of Diabetes Mellitus. PERFORMED BY: [place] [address] PATHOLOGIST [employer] CARLOS BIRMINGHAM M.D. Performed By: #### G LULS #### Point of Care testing , Glucose [Mass/Vol] 181 mg/dL Normal [facility] Comment on above: Result Comment: [facility] Glucose Reference Range is dependent on time and content of last meal. Glucose of more than 200 mg/dL in a nonstressed, ambulatory subject supports the diagnosis of Diabetes Mellitus. PERFORMED BY: [place] [address] PATHOLOGIST [employer] CARLOS BIRMINGHAM M.D. Performed By: #### H EPACUTE, HBCAB, HBSAB #### [facility] , Glucose [Mass/Vol] 210 mg/dL Normal [facility] Comment on above: Result Comment: [facility] Glucose Reference Range is dependent on time and content of last meal. Glucose of more than 200 mg/dL in a nonstressed, ambulatory subject supports the diagnosis of Diabetes Mellitus. PERFORMED BY: [place] [address] PATHOLOGIST [employer] CARLOS BIRMINGHAM M.D. Performed By: #### R ENAL #### [address] Glucose [Mass/Vol] 194 mg/dL Normal [facility] Comment on above: Result Comment: [facility] Glucose Reference Range is dependent on time and content of last meal. Glucose of more than 200 mg/dL in a nonstressed, ambulatory subject supports the diagnosis of Diabetes Mellitus. PERFORMED BY: [place] [address] PATHOLOGIST [employer] CARLOS BIRMINGHAM M.D. Performed By: #### R YUMIKO, MG #### [address] [address] [facility] Renal Function Panelon 12-26 Albumin [Mass/Vol] 3.1 g/dL Low 3.5-5.7 [facility] Comment on above: Performed By: #### H EPACUTE, HBCAB, HBSAB #### [facility] , Anion gap [Moles/Vol] 14.3 mmol/L Normal 6.0-15.0 [facility] Comment on above: Performed By: #### H EPACUTE, HBCAB, HBSAB #### [facility] , Calcium [Mass/Vol] 8.4 mg/dL Low 8.6-10.3 [facility] Comment on above: Performed By: #### H EPACUTE, HBCAB, HBSAB #### [facility] , Chloride [Moles/Vol] 95 mmol/L Low 98-107 [facility] Comment on above: Performed By: #### H EPACUTE, HBCAB, HBSAB #### [facility] , CO2 [Moles/Vol] 28.8 mmol/L Normal 21.0-31.0 [facility] Comment on above: Performed By: #### H EPACUTE, HBCAB, HBSAB #### [facility] , Creatinine [Mass/Vol] 5.07 mg/dL High 0.70-1.30 [facility] Comment on above: Performed By: #### H EPACUTE, HBCAB, HBSAB #### [facility] , Creatinine Clr Calc Pharmacy 22.49 Normal [facility] Comment on above: Result Comment: PERF ORMED BY: [address] [address] PATHOLOGIST [employer] CARLOS BIRMINGHAM M.D. Performed By: #### H EPACUTE, HBCAB, HBSAB #### [facility] , GFR/1.73 sq M.predicted MDRD (S/P/Bld) [Vol rate/Area] 11.982 mL/min/{1.73_m2} Normal [facility] Comment on above: Performed By: #### H EPACUTE, HBCAB, HBSAB #### [facility] , Glucose [Mass/Vol] 199 mg/dL High 70-100 [facility] Comment on above: Result Comment: [facility] Glucose Reference Range is dependent on time and content of last meal. Glucose of more than 200 mg/dL in a nonstressed, ambulatory subject supports the diagnosis of Diabetes Mellitus. ADA recommended reference range Performed By: #### H EPACUTE, HBCAB, HBSAB #### [facility] , Phosphate [Mass/Vol] 5.7 mg/dL High 2.5-4.5 [facility] Comment on above: Performed By: #### H EPACUTE, HBCAB, HBSAB #### [facility] , Potassium [Moles/Vol] 4.1 mmol/L Normal 3.5-5.1 [facility] Comment on above: Performed By: #### H EPACUTE, HBCAB, HBSAB #### [facility] , Sodium [Moles/Vol] 134 mmol/L Low 136-145 [facility] Comment on above: Performed By: #### H EPACUTE, HBCAB, HBSAB #### [facility] , Urea nitrogen [Mass/Vol] 52 mg/dL High 7-25 [facility] Comment on above: Performed By: #### H EPACUTE, HBCAB, HBSAB #### [facility] , XR hip RT min 2V(w/wo pelvis )*on 12-26-2024 XR hip RT min 2V(w/wo pelvis)* [address] [place] [address] XRay Report Signed Patient: Rashard Lyman MR#: [id number] : 1960 Acct:[id number] Age/Sex: 64 / M ADM Date: 12/23/24 Loc: 4N Room: 4X7027-6 Type: ADM IN Attending Dr: Dinesh Cervantes MD Copies to: DO Dinesh Krishna MD Ordering Provider: Wilfrido Montez DO Date of Service: 12/24/24 XR/XR hip RT min 2V(w/wo pelvis)*: / XR hip RT min 2V(w/wo pelvis)* 12/24/2024 9:56 AM SIGNS AND SYMPTOMS: Hardware fixation of right hip fracture PROTOCOL: Intraoperative views of the right hip COMPARISON: 12/22/2024 FINDINGS: Intraoperative views demonstrate hardware fixation of an intertrochanteric fracture of the right hip. Cumulative Air Kerma in mGy: 28.3 mGy XR/XR hip RT min 2V(w/wo pelvis)* IMPRESSION: Intraoperative views demonstrate hardware fixation of an intertrochanteric fracture of the right hip. Impression dictated by: Hector Mckinney M.D. 12/26/2024 5:01 PM Dictation Location: [place] [address] Transcribed By: [facility] 12/26/24 170 Dictated By: Hector Mckinney II, MD 12/26/241699 Signed By: 12/26/24 170 Normal [facility] XR wrist RT 2Von 12-26-2024 XR wrist RT 2V [address] [address] XRay Report Signed Patient: Rashard Lyman MR#: [id number] : 1960 Acct:[id number] Age/Sex: 64 / M ADM Date: 12/23/24 Loc: 4N Room: 6G1190-6 Type: ADM IN Attending Dr: Dinesh Cervantes MD Copies to: DO Dinesh Krishna MD Ordering Provider: Wilfrido Montez DO Date of Service: 12/24/24 XR/XR wrist RT 2V: / XR wrist RT 2V 12/24/2024 9:56 AM SIGNS AND SYMPTOMS: Hardware fixation of right wrist fracture PROTOCOL: Intraoperative views of the right wrist COMPARISON: 12/22/2024 FINDINGS: Intraoperative views of the right wrist demonstrate volar plate and screw hardware fixation of the distal radius. Cumulative Air Kerma in mGy: 0.149 mGy XR/XR wrist RT 2V IMPRESSION: Intraoperative views of the right wrist demonstrate volar plate and screw hardware fixation of the distal radius. Impression dictated by: Hector Mckinney M.D. 12/26/2024 5:00 PM Dictation Location: [facility]--17 Transcribed By: [facility] 12/26/24 1700 Dictated By: Hector Mckinney II, MD 12/26/24 1659 Signed By: 12/26/24 1700 Normal [facility] Complete Blood Count Auto Di ffon 12-25-2024 Basophils (Bld) [#/Vol] 0.1 10*3/uL Normal 0.0-0.2 [facility] Comment on above: Result Comment: PERF ORMED BY: [place] [address] PATHOLOGIST [employer] CARLOS BIRMINGHAM M.D. Performed By: #### Treva CALDERON MG #### [place] [address] [place] Basophils/100 WBC (Bld) 0.4 % Normal . [facility] Comment on above: Performed By: #### Treva CALDERON MG #### [place] [address] [place] Eosinophils (Bld) [#/Vol] 0.0 10*3/uL Normal 0.0-0.45 [facility] Comment on above: Performed By: #### Treva CALDERON MG #### [place] [address] [place] Eosinophils/100 WBC (Bld) 0.0 % Normal . [facility] Comment on above: Performed By: #### Treva CALDERON MG #### [address] Erythrocyte distribution width (RBC) [Ratio] 14.8 % Normal 12.0-14.8 [facility] Comment on above: Performed By: #### R YUMIKO MG #### [address] Hematocrit (Bld) [Volume fraction] 31.3 % Low 38.8-50.0 [facility] Comment on above: Performed By: #### R YUMIKO, MG #### [address] Hemoglobin (Bld) [Mass/Vol] 10.3 g/dL Low 13.0-17.0 [facility] Comment on above: Performed By: #### R YUMIKO, MG #### [address] Lymphocytes (Bld) [#/Vol] 0.9 10*3/uL Low 1.00-4.8 [facility] Comment on above: Performed By: #### R YUMIKO, MG #### [address] Lymphocytes/100 WBC (Bld) 6.1 % Normal . [facility] Comment on above: Performed By: #### R YUMIKO, MG #### [address] MCH (RBC) [Entitic mass] 28.9 pg Normal 27.5-35.2 [facility] Comment on above: Performed By: #### R ENJOHN, MG #### [address] MCV (RBC) [Entitic vol] 87.5 fL Normal 83.5-101 [facility] Comment on above: Performed By: #### R YUMIKO, MG #### [address] Mean Corpuscular HGB Conc 33.0 g/dL Normal 32.5-35.6 [facility] Comment on above: Performed By: #### R YUMIKO, MG #### [facility] [address] [place] [address] [place] Monocytes (Bld) [#/Vol] 1.3 10*3/uL High 0.0-0.8 [facility] Comment on above: Performed By: #### R YUMIKO, MG #### [place] [address] [place] Monocytes/100 WBC (Bld) 9.0 % Normal . [facility] Comment on above: Performed By: #### R YUMIKO, MG #### [place] [address] [place] Neutrophils (Bld) [#/Vol] 12.6 10*3/uL High 1.8-7.7 [facility] Comment on above: Performed By: #### R YUMIKO, MG #### [address] Neutrophils/100 WBC (Bld) 84.5 % Normal . [facility] Comment on above: Performed By: #### R YUMIKO, MG #### [place] [address] [place] NRBC% 0.1 /100{WBC} Normal 0-0.5 [facility] Comment on above: Performed By: #### R YUMIKO, MG #### [place] [address] [place] Platelet mean volume (Bld) [Entitic vol] 7.8 fL Normal 6.6-10.1 [facility] Comment on above: Performed By: #### R YUMIKO, MG #### [place] [address] [place] Platelets (Bld) [#/Vol] 170 10*3/uL Normal 150-450 [facility] Comment on above: Performed By: #### R YUMIKO, MG #### [place] [address] [place] RBC (Bld) [#/Vol] 3.58 10*6/uL Low 3.90-5.60 [facility] Comment on above: Performed By: #### R YUMIKO, MG #### [facility] [address] WBC (Bld) [#/Vol] 15.0 10*3/uL High 4.1-10.5 [facility] Comment on above: Performed By: #### R ENAL, MG #### [facility] [address] White Blood Count 15.0 [CFU]/mL High 4.1-10.5 [facility] Comment on above: Performed By: #### R ENAL, MG #### [address] Glucose Poct Glucometerson 0 12-25-2024 Glucose [Mass/Vol] 298 mg/dL Normal [facility] Comment on above: Result Comment: [facility] Glucose Reference Range is dependent on time and content of last meal. Glucose of more than 200 mg/dL in a nonstressed, ambulatory subject supports the diagnosis of Diabetes Mellitus. PERFORMED BY: [place] [address] PATHOLOGIST [employer] CARLOS BIRMINGHAM M.D. Performed By: #### H EPACUTE, HBCAB, HBSAB #### [facility] , Glucose [Mass/Vol] 299 mg/dL Normal [facility] Comment on above: Result Comment: [facility] Glucose Reference Range is dependent on time and content of last meal. Glucose of more than 200 mg/dL in a nonstressed, ambulatory subject supports the diagnosis of Diabetes Mellitus. PERFORMED BY: [place] [address] PATHOLOGIST [employer] CARLOS BIRMINGHAM M.D. Performed By: #### H EPACUTE, HBCAB, HBSAB #### [facility] , Commemt1 Glu2: Cleaned Meter Normal [facility] Comment on above: Result Comment: PERF ORMED BY: [place] [address] PATHOLOGIST [employer] CARLOS BIRMINGHAM M.D. Performed By: #### H EPACUTE, HBCAB, HBSAB #### [facility] , Glucose [Mass/Vol] 143 mg/dL Normal [facility] Comment on above: Result Comment: [facility] Glucose Reference Range is dependent on time and content of last meal. Glucose of more than 200 mg/dL in a nonstressed, ambulatory subject supports the diagnosis of Diabetes Mellitus. Performed By: #### H EPACUTE, HBCAB, HBSAB #### [facility] , Glucose [Mass/Vol] 218 mg/dL Normal [facility] Comment on above: Result Comment: [facility] Glucose Reference Range is dependent on time and content of last meal. Glucose of more than 200 mg/dL in a nonstressed, ambulatory subject supports the diagnosis of Diabetes Mellitus. PERFORMED BY: [place] [address] PATHOLOGIST [employer] CARLOS BIRMINGHAM M.D. Performed By: #### G LULS #### Point of Care testing , Magnesiumon 12-25-2024 Magnesium [Mass/Vol] 2.5 mg/dL Normal 1.9-2.7 [facility] Comment on above: Result Comment: PERF ORMED BY: [place] [address] PATHOLOGIST [employer] CARLOS BIRMINGHAM M.D. Performed By: #### R ENAL, MG #### [address] Renal Function Panelon 12-25 Albumin [Mass/Vol] 3.1 g/dL Low 3.5-5.7 [facility] Comment on above: Performed By: #### R ENAL, MG #### [address] Anion gap [Moles/Vol] 19.1 mmol/L High 6.0-15.0 [facility] Comment on above: Performed By: #### R ENAL, MG #### [address] Calcium [Mass/Vol] 8.3 mg/dL Low 8.6-10.3 [facility] Comment on above: Performed By: #### R ENAL, MG #### [facility] [address] [place] [address] [place] Chloride [Moles/Vol] 93 mmol/L Low 98-107 [facility] Comment on above: Performed By: #### R ENAL, MG #### [facility] [address] [place] [address] [place] CO2 [Moles/Vol] 24.8 mmol/L Normal 21.0-31.0 [facility] Comment on above: Performed By: #### R ENAL, MG #### [address] Creatinine [Mass/Vol] 5.68 mg/dL High 0.70-1.30 [facility] Comment on above: Performed By: #### R ENAL, MG #### [address] Creatinine Clr Calc Pharmacy 20.03 Normal [facility] Comment on above: Performed By: #### R ENAL, MG #### [place] [address] [place] GFR/1.73 sq M.predicted MDRD (S/P/Bld) [Vol rate/Area] 10.455 mL/min/{1.73_m2} Normal [facility] Comment on above: Performed By: #### R ENAL, MG #### [place] [address] [place] Glucose [Mass/Vol] 228 mg/dL High 70-100 [facility] Comment on above: Result Comment: [facility] Glucose Reference Range is dependent on time and content of last meal. Glucose of more than 200 mg/dL in a nonstressed, ambulatory subject supports the diagnosis of Diabetes Mellitus. ADA recommended reference range Performed By: #### R ENAL, MG #### [place] [address] [place] Phosphate [Mass/Vol] 7.2 mg/dL High 2.5-4.5 [facility] Comment on above: Performed By: #### R ENAL, MG #### [address] Potassium [Moles/Vol] 4.9 mmol/L Normal 3.5-5.1 [facility] Comment on above: Performed By: #### R ENAL, MG #### [address] Sodium [Moles/Vol] 132 mmol/L Low 136-145 [facility] Comment on above: Performed By: #### R ENAL, MG #### [address] Urea nitrogen [Mass/Vol] 65 mg/dL High 7-25 [facility] Comment on above: Performed By: #### R ENAL, MG #### [address] Basic Metabolic Panelon 2 Anion gap [Moles/Vol] 17.6 mmol/L High 6.0-15.0 [facility] Comment on above: Performed By: #### R ENAL, MG #### [place] [address] [place] Calcium [Mass/Vol] 8.4 mg/dL Low 8.6-10.3 [facility] Comment on above: Performed By: #### R ENAL, MG #### [address] CO2 [Moles/Vol] 21.2 mmol/L Normal 21.0-31.0 [facility] Comment on above: Performed By: #### R ENAL, MG #### [address] Creatinine [Mass/Vol] 6.64 mg/dL High 0.70-1.30 [facility] Comment on above: Performed By: #### R ENAL, MG #### [address] Creatinine Clr Calc Pharmacy 17.16 Normal [facility] Comment on above: Result Comment: PERF ORMED BY: [address] [address] PATHOLOGIST [employer] CARLOS BIRMINGHAM M.D. Performed By: #### R YUMIKO MG #### [place] [address] [place] GFR/1.73 sq M.predicted MDRD (S/P/Bld) [Vol rate/Area] 8.667 mL/min/{1.73_m2} Normal [facility] Comment on above: Performed By: #### R YUMIKO, MG #### [address] Glucose [Mass/Vol] 149 mg/dL High 70-100 [facility] Comment on above: Result Comment: [facility] Glucose Reference Range is dependent on time and content of last meal. Glucose of more than 200 mg/dL in a nonstressed, ambulatory subject supports the diagnosis of Diabetes Mellitus. ADA recommended reference range Performed By: #### R YUMIKO, MG #### [address] Potassium [Moles/Vol] 4.8 mmol/L Normal 3.5-5.1 [facility] Comment on above: Performed By: #### R YUMIKO, MG #### [address] Sodium [Moles/Vol] 133 mmol/L Low 136-145 [facility] Comment on above: Performed By: #### R YUMIKO, MG #### [place] [address] [place] Urea nitrogen [Mass/Vol] 73 mg/dL High 7-25 [facility] Comment on above: Performed By: #### R YUMIKO, MG #### [address] Complete Blood Count Auto Di ffon 12-24-2024 Basophils (Bld) [#/Vol] 0.1 10*3/uL Normal 0.0-0.2 [facility] Comment on above: Result Comment: PERF ORMED BY: [place] [address] PATHOLOGIST [employer] CARLOS BIRMINGHAM M.D. Performed By: #### R ENAL, MG #### [facility] [address] [place] [address] [place] Basophils/100 WBC (Bld) 0.6 % Normal . [facility] Comment on above: Performed By: #### R ENAL, MG #### [facility] [address] [place] [address] [place] Eosinophils (Bld) [#/Vol] 0.5 10*3/uL High 0.0-0.45 [facility] Comment on above: Performed By: #### R ENAL, MG #### [facility] [address] Eosinophils/100 WBC (Bld) 3.6 % Normal . [facility] Comment on above: Performed By: #### R ENAL, MG #### [facility] [address] Erythrocyte distribution width (RBC) [Ratio] 14.9 % High 12.0-14.8 [facility] Comment on above: Performed By: #### R ENAL, MG #### [facility] [address] Hematocrit (Bld) [Volume fraction] 33.2 % Low 38.8-50.0 [facility] Comment on above: Performed By: #### R ENAL, MG #### [facility] [address] [place] [address] [place] Hemoglobin (Bld) [Mass/Vol] 11.1 g/dL Low 13.0-17.0 [facility] Comment on above: Performed By: #### R ENAL, MG #### [facility] [address] [place] [address] [place] Lymphocytes (Bld) [#/Vol] 1.6 10*3/uL Normal 1.00-4.8 [facility] Comment on above: Performed By: #### R ENAL, MG #### [facility] [address] [place] [address] [place] Lymphocytes/100 WBC (Bld) 12.8 % Normal . [facility] Comment on above: Performed By: #### R ENAL, MG #### [address] MCH (RBC) [Entitic mass] 28.9 pg Normal 27.5-35.2 [facility] Comment on above: Performed By: #### R ENAL, MG #### [address] MCV (RBC) [Entitic vol] 86.6 fL Normal 83.5-101 [facility] Comment on above: Performed By: #### R ENAL, MG #### [address] Mean Corpuscular HGB Conc 33.4 g/dL Normal 32.5-35.6 [facility] Comment on above: Performed By: #### R ENAL, MG #### [address] Monocytes (Bld) [#/Vol] 1.1 10*3/uL High 0.0-0.8 [facility] Comment on above: Performed By: #### R ENAL, MG #### [address] Monocytes/100 WBC (Bld) 9.0 % Normal . [facility] Comment on above: Performed By: #### R ENAL, MG #### [address] Neutrophils (Bld) [#/Vol] 9.3 10*3/uL High 1.8-7.7 [facility] Comment on above: Performed By: #### R ENAL, MG #### [address] Neutrophils/100 WBC (Bld) 74.0 % Normal . [facility] Comment on above: Performed By: #### R ENAL, MG #### [address] NRBC% 0.1 /100{WBC} Normal 0-0.5 [facility] Comment on above: Performed By: #### R ENAL, MG #### [address] Platelet mean volume (Bld) [Entitic vol] 7.2 fL Normal 6.6-10.1 [facility] Comment on above: Performed By: #### R ENAL, MG #### [address] Platelets (Bld) [#/Vol] 160 10*3/uL Abnormal 150-450 [facility] Comment on above: Performed By: #### R ENAL, MG #### [address] RBC (Bld) [#/Vol] 3.83 10*6/uL Low 3.90-5.60 [facility] Comment on above: Performed By: #### R ENAL, MG #### [address] WBC (Bld) [#/Vol] 12.5 10*3/uL High 4.1-10.5 [facility] Comment on above: Performed By: #### R ENAL, MG #### [address] White Blood Count 12.5 [CFU]/mL High 4.1-10.5 [facility] Comment on above: Performed By: #### R ENAL, MG #### [address] Ferritinon 12-24-2024 Ferritin [Mass/Vol] 384.2 ng/mL High 23.9-336.2 [facility] Comment on above: Result Comment: PERF ORMED BY: [place] [address] PATHOLOGIST [employer] CARLOS BIRMINGHAM M.D. Performed By: #### G INEZ #### Point of Care testing , Glucose Poct Glucometerson 0 12-24-2024 Glucose [Mass/Vol] 295 mg/dL Normal [facility] Comment on above: Result Comment: [place] om Glucose Reference Range is dependent on time and content of last meal. Glucose of more than 200 mg/dL in a nonstressed, ambulatory subject supports the diagnosis of Diabetes Mellitus. PERFORMED BY: [place] [phone] PATHOLOGIST [employer] CARLOS BIRMINGHAM M.D. Performed By: #### R ENAL, MG #### [address] Glucose [Mass/Vol] 258 mg/dL Normal [facility] Comment on above: Result Comment: [place] [facility] Glucose Reference Range is dependent on time and content of last meal. Glucose of more than 200 mg/dL in a nonstressed, ambulatory subject supports the diagnosis of Diabetes Mellitus. PERFORMED BY: [place] [phone] PATHOLOGIST [employer] CARLOS BIRMINGHAM M.D. Performed By: #### R ENAL, MG #### [address] Glucose [Mass/Vol] 178 mg/dL Normal [facility] Comment on above: Result Comment: [place] [facility] Glucose Reference Range is dependent on time and content of last meal. Glucose of more than 200 mg/dL in a nonstressed, ambulatory subject supports the diagnosis of Diabetes Mellitus. PERFORMED BY: [place] [address] PATHOLOGIST [employer] CARLOS BIRMINGHAM M.D. Performed By: #### R ENAL, MG #### [address] Glucose [Mass/Vol] 169 mg/dL Normal [facility] Comment on above: Result Comment: [place] [facility] Glucose Reference Range is dependent on time and content of last meal. Glucose of more than 200 mg/dL in a nonstressed, ambulatory subject supports the diagnosis of Diabetes Mellitus. PERFORMED BY: [place] [address] PATHOLOGIST [employer] CARLOS BIRMINGHAM M.D. Performed By: #### G LULS #### Point of Care testing , Commemt1 Glu2: Cleaned Meter Normal [facility] Comment on above: Result Comment: PERF ORMED BY: [place] [address] PATHOLOGIST [employer] CARLOS BIRMINGHAM M.D. Performed By: #### R YUMIKO, MG #### [address] Glucose [Mass/Vol] 154 mg/dL Normal [facility] Comment on above: Result Comment: [place] om Glucose Reference Range is dependent on time and content of last meal. Glucose of more than 200 mg/dL in a nonstressed, ambulatory subject supports the diagnosis of Diabetes Mellitus. Performed By: #### R YUMIKO MG #### [address] Glucose [Mass/Vol] 146 mg/dL Normal [facility] Comment on above: Result Comment: [place] om Glucose Reference Range is dependent on time and content of last meal. Glucose of more than 200 mg/dL in a nonstressed, ambulatory subject supports the diagnosis of Diabetes Mellitus. PERFORMED BY: [place] [address] PATHOLOGIST [employer] CARLOS BIRMINGHAM M.D. Performed By: #### R YUMIKO, MG #### [address] Hepatitis Acute Panelon 11-28 HBsAg Screen Negative Normal Negative [facility] Comment on above: Performed By: #### H EPACUTE, HBCAB, HBSAB #### [facility] , Hepatitis A Antibody IgM Negative Normal Negative [facility] Comment on above: Result Comment: A ne gative anti-HAV IgM result suggests no recent or current HAV infection. Performed By: #### H EPACUTE, HBCAB, HBSAB #### [facility] , Hepatitis B Core Antibody IgM Negative Normal Negative [facility] Comment on above: Performed By: #### H EPACUTE, HBCAB, HBSAB #### [facility] , Hepatitis C Virus Antibody Non-Reactive Normal Non Reactive [facility] Comment on above: Performed By: #### H EPACUTE, HBCAB, HBSAB #### [facility] , Interpretation Hepatitis C Comment Normal . [facility] Comment on above: Result Comment: Not infected with HCV unless early or acute infection is suspected (which may be delayed in an immunocompromised individual), or other evidence exists to indicate HCV infection. Performed By: #### H EPACUTE, HBCAB, HBSAB #### [facility] , Hepatitis B Core Antibodyon 12-24-2024 Hepatitis B Core Antibody Negative Normal Negative [facility] Comment on above: Result Comment: Perf ormed at: - [facility] [address] [id number] Vice President Of Brand Management: Mata Brian PhD, Phone: [phone] PERFORMED BY: [place] [id number] PATHOLOGIST [employer] CARLOS BIRMINGHAM M.D. Performed By: #### H EPACUTE, HBCAB, HBSAB #### [facility] , Hepatitis B Surface Antibody on 12-24-2024 Hepatitis B Surface Antibody Non-Reactive Normal . [facility] Comment on above: Result Comment: Non Reactive: Not immune to HBV infection. Anti-HBs undetectable or less than 10 mIU/mL. Reactive: Evidence of HBV immunity. Anti-HBs levels greater than 10 mIU/mL. Performed By: #### H EPACUTE, HBCAB, HBSAB #### [facility] , Iron and TIBC Profileon 11-28 % Iron Saturation 75.5 % High 20-50 [facility] Comment on above: Performed By: #### G LULS #### Point of Care testing , Iron [Mass/Vol] 148 ug/dL Normal 50-212 [facility] Comment on above: Performed By: #### G LULS #### Point of Care testing , Total Iron Binding Capacity 196 ug/dL Low 255-450 [facility] Comment on above: Performed By: #### G LULS #### Point of Care testing , Transferrin [Mass/Vol] 140 mg/dL Low 203-362 [facility] Comment on above: Performed By: #### G LULS #### Point of Care testing , Magnesiumon 12-24-2024 Magnesium [Mass/Vol] 2.5 mg/dL Normal 1.9-2.7 [facility] Comment on above: Result Comment: PERF ORMED BY: [place] [address] PATHOLOGIST [employer] CARLOS BIRMINGHAM M.D. Performed By: #### G LULS #### Point of Care testing , Renal Function Panelon 12-24 Albumin [Mass/Vol] 3.2 g/dL Low 3.5-5.7 [facility] Comment on above: Performed By: #### G LULS #### Point of Care testing , Anion gap [Moles/Vol] 18.0 mmol/L High 6.0-15.0 [facility] Comment on above: Performed By: #### G LULS #### Point of Care testing , Calcium [Mass/Vol] 8.5 mg/dL Low 8.6-10.3 [facility] Comment on above: Performed By: #### G LULS #### Point of Care testing , Chloride [Moles/Vol] 99 mmol/L Normal 98-107 [facility] Comment on above: Performed By: #### G LULS #### Point of Care testing , Performed By: #### R ENJOHN, MG #### [address] CO2 [Moles/Vol] 19.9 mmol/L Low 21.0-31.0 [facility] Comment on above: Performed By: #### G LULS #### Point of Care testing , Creatinine [Mass/Vol] 6.40 mg/dL High 0.70-1.30 [facility] Comment on above: Performed By: #### G LULS #### Point of Care testing , Creatinine Clr Calc Pharmacy 17.81 Normal [facility] Comment on above: Performed By: #### G LULS #### Point of Care testing , GFR/1.73 sq M.predicted MDRD (S/P/Bld) [Vol rate/Area] 9.059 mL/min/{1.73_m2} Normal [facility] Comment on above: Performed By: #### G LULS #### Point of Care testing , Glucose [Mass/Vol] 148 mg/dL High 70-100 [facility] Comment on above: Result Comment: [place] Glucose Reference Range is dependent on time and content of last meal. Glucose of more than 200 mg/dL in a nonstressed, ambulatory subject supports the diagnosis of Diabetes Mellitus. ADA recommended reference range Performed By: #### G LULS #### Point of Care testing , Phosphate [Mass/Vol] 6.5 mg/dL High 2.5-4.5 [facility] Comment on above: Performed By: #### G LULS #### Point of Care testing , Potassium [Moles/Vol] 4.9 mmol/L Normal 3.5-5.1 [facility] Comment on above: Performed By: #### G LULS #### Point of Care testing , Sodium [Moles/Vol] 132 mmol/L Low 136-145 [facility] Comment on above: Performed By: #### G LULS #### Point of Care testing , Urea nitrogen [Mass/Vol] 70 mg/dL High 7-25 [facility] Comment on above: Performed By: #### G LULS #### Point of Care testing , ABO/Rh Retypeon 12-23-2024 ABO/RH Recheck Result Positive Normal [facility] Comment on above: Order Comment: redra w Result Comment: PERF ORMED BY: [facility] [address] [place] [address] PATHOLOGIST [employer] CARLOS BIRMINGHAM M.D. Basic Metabolic Panelon 11-28 Anion gap [Moles/Vol] 15.6 mmol/L High 6.0-15.0 [facility] Comment on above: Performed By: #### H EPACUTE, HBCAB, HBSAB #### [facility] , Calcium [Mass/Vol] 9.0 mg/dL Normal 8.6-10.3 [facility] Comment on above: Performed By: #### H EPACUTE, HBCAB, HBSAB #### [facility] , Chloride [Moles/Vol] 104 mmol/L Normal 98-107 [facility] Comment on above: Performed By: #### H EPACUTE, HBCAB, HBSAB #### [facility] , CO2 [Moles/Vol] 19.8 mmol/L Low 21.0-31.0 [facility] Comment on above: Performed By: #### H EPACUTE, HBCAB, HBSAB #### [facility] , Creatinine [Mass/Vol] 5.46 mg/dL High 0.70-1.30 [facility] Comment on above: Performed By: #### H EPACUTE, HBCAB, HBSAB #### [facility] , Creatinine Clr Calc Pharmacy 19.66 Normal [facility] Comment on above: Performed By: #### H EPACUTE, HBCAB, HBSAB #### [facility] , GFR/1.73 sq M.predicted MDRD (S/P/Bld) [Vol rate/Area] 10.962 mL/min/{1.73_m2} Normal [facility] Comment on above: Performed By: #### H EPACUTE, HBCAB, HBSAB #### [facility] , Glucose [Mass/Vol] 288 mg/dL High 70-100 [facility] Comment on above: Result Comment: [place] Glucose Reference Range is dependent on time and content of last meal. Glucose of more than 200 mg/dL in a nonstressed, ambulatory subject supports the diagnosis of Diabetes Mellitus. ADA recommended reference range Performed By: #### H EPACUTE, HBCAB, HBSAB #### [facility] , Potassium [Moles/Vol] 5.4 mmol/L High 3.5-5.1 [facility] Comment on above: Performed By: #### H EPACUTE, HBCAB, HBSAB #### [facility] , Sodium [Moles/Vol] 134 mmol/L Low 136-145 [facility] Comment on above: Performed By: #### H EPACUTE, HBCAB, HBSAB #### [facility] , Urea nitrogen [Mass/Vol] 65 mg/dL High 7-25 [facility] Comment on above: Performed By: #### H EPACUTE, HBCAB, HBSAB #### [facility] , Anion gap [Moles/Vol] 17.6 mmol/L High 6.0-15.0 [facility] Comment on above: Performed By: #### H EPACUTE, HBCAB, HBSAB #### [facility] , Calcium [Mass/Vol] 9.2 mg/dL Normal 8.6-10.3 [facility] Comment on above: Performed By: #### H EPACUTE, HBCAB, HBSAB #### [facility] , Chloride [Moles/Vol] 104 mmol/L Normal 98-107 [facility] Comment on above: Performed By: #### H EPACUTE, HBCAB, HBSAB #### [facility] , CO2 [Moles/Vol] 17.2 mmol/L Low 21.0-31.0 [facility] Comment on above: Performed By: #### H EPACUTE, HBCAB, HBSAB #### [facility] , Creatinine [Mass/Vol] 5.53 mg/dL High 0.70-1.30 [facility] Comment on above: Performed By: #### H EPACUTE, HBCAB, HBSAB #### [facility] , Creatinine Clr Calc Pharmacy 19.41 Normal [facility] Comment on above: Result Comment: PERF ORMED BY: [place] [address] [place] [address] PATHOLOGIST [employer] CARLOS S VINNIE M.D. Performed By: #### H EPACUTE, HBCAB, HBSAB #### [facility] , GFR/1.73 sq M.predicted MDRD (S/P/Bld) [Vol rate/Area] 10.795 mL/min/{1.73_m2} Normal [facility] Comment on above: Performed By: #### H EPACUTE, HBCAB, HBSAB #### [facility] , Glucose [Mass/Vol] 280 mg/dL High 70-100 [facility] Comment on above: Result Comment: [place] Glucose Reference Range is dependent on time and content of last meal. Glucose of more than 200 mg/dL in a nonstressed, ambulatory subject supports the diagnosis of Diabetes Mellitus. ADA recommended reference range Performed By: #### H EPACUTE, HBCAB, HBSAB #### [facility] , Potassium [Moles/Vol] 5.8 mmol/L High 3.5-5.1 [facility] Comment on above: Result Comment: Hemo lysis is present at a level that could interfere with the result. Contact lab if redraw is required Performed By: #### H EPACUTE, HBCAB, HBSAB #### [facility] , Sodium [Moles/Vol] 133 mmol/L Low 136-145 [facility] Comment on above: Performed By: #### H EPACUTE, HBCAB, HBSAB #### [facility] , Urea nitrogen [Mass/Vol] 66 mg/dL High 7-25 [facility] Comment on above: Performed By: #### H EPACUTE, HBCAB, HBSAB #### [facility] , Creatine Kinaseon 12-23-2024 CK [Catalytic activity/Vol] 190 U/L Normal 30-223 [facility] Comment on above: Result Comment: PERF ORMED BY: [facility] [address] [place] [address] PATHOLOGIST [employer] CARLOS BIRMINGHAM M.D. Performed By: #### R MG YUMIKO #### [place] [id number] [facility] ECG 12 lead ECGon 12-23-2024 ECG 12 lead ECG [facility] [place] [address] Electrocardiograph Report Signed Patient: Rashard Lyman MR#: [id number] : 1960 Acct:[id number] Age/Sex: 64 / M ADM Date: 12/23/24 Loc: 4N Room: [address] [place] [address] Type: ADM IN Attending Dr: Leno Dela Cruz MD Ordering Provider: Enrique Yang MD Date of Service: 12/23/24 ECG/ECG 12 lead ECG: ADMISSION Copies to: Test Reason : Blood Pressure : */* mmHG Vent. Rate : 78 BPM Atrial Rate : 78 BPM P-R Int : 210 ms QRS Dur : 114 ms QT Int : 406 ms P-R-T Axes : 65 27 65 degrees QTcB Int : 462 ms Sinus rhythm with 1st degree AV block Minimal voltage criteria for LVH, may be normal variant ( Stuart product ) Nonspecific T wave abnormality Prolonged QT Abnormal ECG When compared with ECG of 25-Aug-2020 07:19, ST no longer elevated in Inferior leads ST no longer elevated in Anterior leads Confirmed by Adrian Farmer ([id number]) on 12/23/2024 2:14:11 PM Referred By: Electronically Signed By: Adrian Farmer Transcribed By: MUS Signed By Adrian Farmer MD 12/23/24 1414 Normal [facility] ECH echo transthoracicon ECH echo transthoracic [facility] Main [place] [id number] Echocardiogram Signed Patient: Rashard Lyman MR#: [id number] : 1960 Acct:[id number] Age/Sex: 64 / M ADM Date: 12/23/24 Loc: 4N Room: [address] [place] [address] Type: ADM IN Attending Dr: Leno Dela Cruz MD Ordering Provider: Ghislaine Arias MD Date of Service: 12/23/24 ECH/ECH echo transthoracic: History of pericarditis and pericardial effusion. Preop Copies to: MD Rashard Posadas 10:27 AM Patient Location: : 1960 Gender: Male (MM/DD/YYYY) Age: 64 Years Ordering Physician: Ghislaine Arias Height: 76 in Weight: 273.373 lb Performed By: DOREEN Barrios BSA: 2.5 m2 BP: 100 / 69 mmHg HR: 94 bpm Reason For Study: History of pericarditis and pericardial effusion. Preop History: COPD,DM,ESRD,HTN,hyperlipi demia + + Interpretation Summary Ejection Fraction = 55-60%. No regional wall motion abnormalities noted. The left ventricle is mildly dilated. Mild concentric left ventricular hypertrophy. A variety of Doppler measurements indicate impaired left ventricular relaxation, which is associated with grade I/IV or mild diastolic dysfunction. There is trace tricuspid regurgitation. No pericardial effusion seen. There is no comparison study available. Procedure/Quality: A two-dimensional transthoracic echocardiogram with color flow, Doppler and injection of contrast agent Definity was performed. The study was technically good in quality. Left Ventricle: The left ventricle is mildly dilated. Increased LV apical trabeculations. Mild concentric left ventricular hypertrophy. Ejection Fraction = 55-60%. A variety of Doppler measurements indicate impaired left ventricular relaxation, which is associated with grade I/IV or mild diastolic dysfunction. No regional wall motion abnormalities noted. Left Atrium: The left atrium appears normal in size. Right Atrium: The right atrium appears normal in size. Right Ventricle: The right ventricle is normal in size and function. Aortic Valve: The aortic valve is moderately calcified. Heavily calcified non coronary cusp. No hemodynamically significant valvular aortic stenosis. No aortic regurgitation is present. Mitral Valve: There is moderate mitral annular calcification. No significant mitral valve stenosis. There is no mitral regurgitation noted. Tricuspid Valve: The tricuspid valve is normal in structure. There is trace tricuspid regurgitation. Pulmonic Valve: The pulmonic valve is not well visualized. No significant pulmonic regurgitation. Arteries: The aortic root is normal size. Pericardium/Pleura: No pericardial effusion seen. IVC/Hepatic Veins: The inferior vena cava is normal in size, with a normal collapsibility index. MMode/2D Measurements Calculations IVSd (0.7-1.1 cm): 1.10 cm LVIDd (3.7-5.4 cm): 6.0 cm LVPWd (0.7-1.1 cm): 1.00 cm LVIDs (2.3-3.6 cm): 3.9 cm LA dimension (2.3-4.0 cm): 3.3 LVOT diam: 2.10 cm cm FS: 35.8 % LVOT area: 3.5 cm2 EDV(Teich): 180.0 ml Ao root area: 10.8 cm2 ESV(Teich): 63.9 ml Ao root diam (2.0-3.2 cm): 3.7 cm EF(Teich): 64.5 % asc Aorta Diam: 3.8 cm LA A2 area: 17.8 cm2 LA A4 area: 14.4 cm2 LA length (vol): 6.2 cm LA vol: 35.0 ml LA vol index: 13.8 ml/m2 Doppler Measurements Calculations E/E' med: 6.1 Ao V2 max: 173.0 cm/sec E/E' lat: 4.9 Ao max P.0 mmHg MV E max jose: 50.2 cm/sec Ao mean P.0 mmHg MV A max jose: 117.0 cm/sec Ao V2 mean: 114.0 cm/sec MV E/A: 0.43 Ao V2 VTI: 25.6 cm DOMINGO(I,D): 2.22 cm2 DOMINGO(V,D): 1.96 cm2 MV V2 VTI: 21.6 cm MV mean P.00 mmHg MV V2 mean: 64.6 cm/sec MV P1/2t: 50.2 msec MV dec time: 0.14 sec MVA(P1/2t): 4.4 cm2 MV dec slope: 420.5 cm/sec?? TV max P.0 mmHg LV V1 max: 98.0 cm/sec TR max jose: 254.0 cm/sec LV V1 max P.8 mmHg TR max P.8 mmHg LV V1 mean: 65.8 cm/sec RAP systole: 5.0 mmHg LV V1 mean P.00 mmHg RVSP(TR): 30.8 mmHg LV V1 VTI: 16.4 cm + + + -+ + : Electronically : : : : signed by: Ghislaine : : : : Hugo : : : : on: 12/23/2024, : : : : 11:35 AM : + -+ + Tech Comments previous echo in [facility]. No previous echo. Transcribed By: SCV Performed At: 12/23/24 1027 Signed By: Ghislaine Arias MD 12/23/24 1135 Normal [facility] Ferritinon 12-23-2024 Ferritin [Mass/Vol] 378.8 ng/mL High 23.9-336.2 [facility] Comment on above: Result Comment: PERF ORMED BY: [place] [address] [address] PATHOLOGIST [employer] CARLOS BIRMINGHAM M.D. Performed By: #### H EPACUTE, HBCAB, HBSAB #### [facility] , Glucose Poct Glucometerson 0 12-23-2024 Glucose [Mass/Vol] 223 mg/dL Normal [facility] Comment on above: Result Comment: [place] om Glucose Reference Range is dependent on time and content of last meal. Glucose of more than 200 mg/dL in a nonstressed, ambulatory subject supports the diagnosis of Diabetes Mellitus. PERFORMED BY: [place] [phone] PATHOLOGIST [employer] CARLOS BIRMINGHAM M.D. Performed By: #### H EPACUTE, HBCAB, HBSAB #### [facility] , Glucose [Mass/Vol] 201 mg/dL Normal [facility] Comment on above: Result Comment: [facility] Glucose Reference Range is dependent on time and content of last meal. Glucose of more than 200 mg/dL in a nonstressed, ambulatory subject supports the diagnosis of Diabetes Mellitus. PERFORMED BY: [place] [phone] PATHOLOGIST [employer] CARLOS BIRMINGHAM M.D. Performed By: #### G LULS #### Point of Care testing , Glucose [Mass/Vol] 234 mg/dL Normal [facility] Comment on above: Result Comment: [place] Glucose Reference Range is dependent on time and content of last meal. Glucose of more than 200 mg/dL in a nonstressed, ambulatory subject supports the diagnosis of Diabetes Mellitus. PERFORMED BY: [place] [phone] PATHOLOGIST [employer] CARLOS BIRMINGHAM M.D. Performed By: #### R ENAL, MG #### [address] Glucose [Mass/Vol] 292 mg/dL Normal [facility] Comment on above: Result Comment: [place] Glucose Reference Range is dependent on time and content of last meal. Glucose of more than 200 mg/dL in a nonstressed, ambulatory subject supports the diagnosis of Diabetes Mellitus. PERFORMED BY: [place] [phone] PATHOLOGIST [employer] CARLOS BIRMINGHAM M.D. Performed By: #### G LULS #### Point of Care testing , Hemogram CBC Without Diffon 12-23-2024 Erythrocyte distribution width (RBC) [Ratio] 15.0 % High 12.0-14.8 [facility] Comment on above: Performed By: #### H EPACUTE, HBCAB, HBSAB #### [facility] , Hematocrit (Bld) [Volume fraction] 39.1 % Normal 38.8-50.0 [facility] Comment on above: Performed By: #### H EPACUTE, HBCAB, HBSAB #### [facility] , Hemoglobin (Bld) [Mass/Vol] 12.7 g/dL Low 13.0-17.0 [facility] Comment on above: Performed By: #### H EPACUTE, HBCAB, HBSAB #### [facility] , MCH (RBC) [Entitic mass] 28.4 pg Normal 27.5-35.2 [facility] Comment on above: Performed By: #### H EPACUTE, HBCAB, HBSAB #### [facility] , MCV (RBC) [Entitic vol] 87.7 fL Normal 83.5-101 [facility] Comment on above: Performed By: #### H EPACUTE, HBCAB, HBSAB #### [facility] , Mean Corpuscular HGB Conc 32.4 g/dL Low 32.5-35.6 [facility] Comment on above: Performed By: #### H EPACUTE, HBCAB, HBSAB #### [facility] , Platelet mean volume (Bld) [Entitic vol] 6.8 fL Normal 6.6-10.1 [facility] Comment on above: Result Comment: PERF ORMED BY: [place] [address] [place] [address] PATHOLOGIST [employer] CARLOS BIRMINGHAM M.D. Performed By: #### H EPACUTE, HBCAB, HBSAB #### [facility] , Platelets (Bld) [#/Vol] 225 10*3/uL Normal 150-450 [facility] [facility] Comment on above: Performed By: #### H EPACUTE, HBCAB, HBSAB #### [facility] , RBC (Bld) [#/Vol] 4.46 10*6/uL Normal 3.90-5.60 [facility] Comment on above: Performed By: #### H EPACUTE, HBCAB, HBSAB #### [facility] , White Blood Count 16.0 [CFU]/mL High 4.1-10.5 [facility] Comment on above: Performed By: #### H EPACUTE, HBCAB, HBSAB #### [facility] , Iron and TIBC Profileon 11-28 % Iron Saturation 13.6 % Low 20-50 [facility] Comment on above: Performed By: #### H EPACUTE, HBCAB, HBSAB #### [facility] , Iron [Mass/Vol] 30 ug/dL Low 50-212 [facility] Comment on above: Performed By: #### H EPACUTE, HBCAB, HBSAB #### [facility] , Total Iron Binding Capacity 221 ug/dL Low 255-450 [facility] Comment on above: Performed By: #### H EPACUTE, HBCAB, HBSAB #### [facility] , Transferrin [Mass/Vol] 158 mg/dL Low 203-362 [facility] Comment on above: Performed By: #### H EPACUTE, HBCAB, HBSAB #### [facility] , Potassiumon 12-23-2024 Potassium [Moles/Vol] 4.8 mmol/L Normal 3.5-5.1 [facility] Comment on above: Result Comment: PERF ORMED BY: [place] [address] PATHOLOGIST [employer] CARLOS BIRMINGHAM M.D. Performed By: #### R ENAL, MG #### [address] Renal Function Panelon 12-23 Albumin [Mass/Vol] 3.4 g/dL Low 3.5-5.7 [facility] Comment on above: Performed By: #### R ENAL #### [address] Anion gap [Moles/Vol] 13.6 mmol/L Normal 6.0-15.0 [facility] Comment on above: Performed By: #### R ENAL #### [address] Calcium [Mass/Vol] 8.9 mg/dL Normal 8.6-10.3 [facility] Comment on above: Performed By: #### R ENAL #### [address] Chloride [Moles/Vol] 100 mmol/L Normal 98-107 [facility] Comment on above: Performed By: #### R ENAL #### [address] CO2 [Moles/Vol] 24.3 mmol/L Normal 21.0-31.0 [facility] Comment on above: Performed By: #### R ENAL #### [address] Creatinine [Mass/Vol] 5.69 mg/dL High 0.70-1.30 [facility] Comment on above: Performed By: #### R ENAL #### [address] Creatinine Clr Calc Pharmacy 18.86 Normal [facility] Comment on above: Result Comment: PERF ORMED BY: [place] [address] PATHOLOGIST [employer] CARLOS BIRMINGHAM M.D. Performed By: #### R ENAL #### [place] [address] [place] GFR/1.73 sq M.predicted MDRD (S/P/Bld) [Vol rate/Area] 10.432 mL/min/{1.73_m2} Normal [facility] Comment on above: Performed By: #### R ENAL #### [address] Glucose [Mass/Vol] 209 mg/dL High 70-100 [facility] Comment on above: Result Comment: [facility] Glucose Reference Range is dependent on time and content of last meal. Glucose of more than 200 mg/dL in a nonstressed, ambulatory subject supports the diagnosis of Diabetes Mellitus. ADA recommended reference range Performed By: #### R ENAL #### [address] Phosphate [Mass/Vol] 6.9 mg/dL High 2.5-4.5 [facility] Comment on above: Performed By: #### R ENAL #### [address] Potassium [Moles/Vol] 4.9 mmol/L Normal 3.5-5.1 [facility] Comment on above: Performed By: #### R ENAL #### [address] Sodium [Moles/Vol] 133 mmol/L Low 136-145 [facility] Comment on above: Performed By: #### R ENAL #### [address] Urea nitrogen [Mass/Vol] 64 mg/dL High 7-25 [facility] Comment on above: Performed By: #### R ENAL #### [place] [address] [place] Troponin I High Sensitivityo n 12-23-2024 Troponin I High Sensitivity 188 Off scale high 0-20 [facility] Comment on above: Result Comment: Crit ical Result : Called to and read back by: MAC BECERRA at: 12/23/2024 06:03:32 by:ALAN The Troponin units of report have been changed to meet the Chest Pain Accreditation requirement, element EC5.M1l2. Troponin units are changed from pg/ml to ng/L. Also, the decimal is removed and results are in whole numbers. PERFORMED BY: [address] [place] [address] PATHOLOGIST [employer] CARLOS BIRMINGHAM M.D. Performed By: #### H EPACUTE, HBCAB, HBSAB #### [facility] , Troponin I High Sensitivity 201 Off scale high 0-20 [facility] Comment on above: Result Comment: Crit ical Result : Called to and read back by: MAC BECERRA at: 12/23/2024 04:28:13 by:ALAN The Troponin units of report have been changed to meet the Chest Pain Accreditation requirement, element EC5.M1l2. Troponin units are changed from pg/ml to ng/L. Also, the decimal is removed and results are in whole numbers. PERFORMED BY: [place] [address] PATHOLOGIST [employer] CARLOS BIRMINGHAM M.D. Performed By: #### R ENJOHN, MG #### [place] [address] [place] Type and Screenon 12-23-2024 ABO and Rh group Nom (Bld) Blood group A Rh(D) positive Normal [facility] US renal BIon 12-23-2024 US renal BI [facility] [place] [address] Ultrasound Report Signed Patient: Rashard Lyman MR#: [id number] : 1960 Acct:[id number] Age/Sex: 64 / M ADM Date: 12/23/24 Loc: Room: [address] [place] [address] Type: ADM IN Attending Dr: Leno Dela Cruz MD Ordering Provider: Carie Abraham MD Date of Service: 12/23/24 US/US renal BI: MARISOL Copies to: MD Leno Chavira MD BILATERAL RENAL AND BLADDER ULTRASOUND CLINICAL HISTORY: Acute kidney injury. COMPARISON: None FINDINGS: Estimation of renal size is approximately 9.02 cm on the right and 9.85 cm on the left. No contour deforming mass, shadowing stone or hydronephrosis. Small cyst left kidney. The urinary bladder is partially distended with a volume of 822.16 ml. No shadowing stone or focal lesion. US/US renal BI IMPRESSION: No acute findings. Impression dictated by: Clayton Cuevas Jr., D.O. 12/23/2024 3:36 PM Dictation Location: [place] [address] Tech: Diana Bernard Transcribed By: JU 12/23/241535 Dictated By: Clayton Cuevas Jr, DO 12/23/241534 Signed By: 12/23/24 153 Normal [facility] No Panel InformationOrdered By: Chino Elliott on 10-26-2024 Miscellaneous Pathology Test See comment [facility] Comment on above: See report. Scanned copy available in EMR. Pathology Request for Lab Co rpon 10-26-2024 Pathology Request for Lab [place] Normal [facility] Comment on above: Order Comment: RIGHT FOREFOOT Result Comment: See report. Scanned copy available in EMR. PERFORMED BY: [facility] [address] [place] [address] PATHOLOGIST [employer] CARLOS BIRMINGHAM M.D. Performed By: #### G LULS #### Point of Care testing , No Panel InformationOrdered By: Chino Elliott on 08-28-2024 Miscellaneous Pathology Test See comment [facility] Comment on above: See report. Scanned copy available in EMR. Pathology Request for Lab Co rpon 08-28-2024 Pathology Request for Lab [place] Normal [facility] Comment on above: Order Comment: RIGHT HALLUX Result Comment: See report. Scanned copy available in EMR. PERFORMED BY: [place] [address] [place] [id number] PATHOLOGIST [employer] NIMA MCCLELLAN M.D. Performed By: #### H EPACUTE, HBCAB, HBSAB #### [facility] , BLOOD UREA NITROGENon 2023 Urea nitrogen [Mass/Vol] 40 mg/dL [facility] 09-22 [facility] Comment on above: Performed By: #### E LEC, 3094-0, TELECOMMUNICATION OPERATOR, 18060-8 #### [facility] ([id number]) [address] [place] [address] 816[address] #### 62979-3, [facility] #### [facility] ([id number]) [address] [place] [address], [address] [place] [address] CBC AND AUTO DIFFon 02-17-20 24 ABSOLUTE BASOPHIL 0.0 X10E9/L Normal 0.0-0.2 [facility] Comment on above: Performed By: #### U A #### [facility] ([id number]) [address] [place] [address]13 ABSOLUTE NEUTROPHIL 5.2 X10E9/L Normal 1.5-6.6 [facility] Comment on above: Performed By: #### U A #### [facility] ([id number]) [address] [place] [address] 32268 Basophils/100 WBC (Bld) 0.6 % Normal [facility] Comment on above: Performed By: #### U A #### [facility] ([id number]) [address] [place] [address] 62146 Eosinophils (Bld) [#/Vol] 0.6 10*3/uL High 0.0-0.4 [facility] Comment on above: Performed By: #### U A #### [facility] ([id number]) [address] [place] [address] 55169 Eosinophils/100 WBC (Bld) 6.5 % Normal [facility] Comment on above: Performed By: #### U A #### [facility] ([id number]) [address] [place] [address] 24477 Erythrocyte distribution width (RBC) [Ratio] 14.2 % Normal 11.5-15.0 [facility] Comment on above: Performed By: #### U A #### [facility] ([id number]) [address] [place] [address] 46175 Hematocrit (Bld) [Volume fraction] 37.5 % Low 39-49 [facility] Comment on above: Performed By: #### U A #### [facility] ([id number]) [address] [place] [address] 54786 Hemoglobin (Bld) [Mass/Vol] 12.3 g/dL Low 13.0-17.0 [facility] Comment on above: Performed By: #### U A #### [facility] ([id number]) [address] [place] [address] 82702 Lymphocytes (Bld) [#/Vol] 1.9 10*3/uL Normal 1.0-3.5 [facility] Comment on above: Performed By: #### U A #### [facility] ([id number]) [address] [place] [address] 88287 Lymphocytes/100 WBC (Bld) 21.4 % Normal [facility] Comment on above: Performed By: #### U A #### [facility] ([id number]) [address] [place] [address] 38779 MCH (RBC) [Entitic mass] 29.3 pg Normal 27-34 [facility] Comment on above: Performed By: #### U A #### [facility] ([id number]) [address] [place] [address] 13820 MCHC (RBC) [Mass/Vol] 32.7 g/dL Normal 32-36 [facility] Comment on above: Performed By: #### U A #### [facility] ([id number]) [address] [place] [address] 34967 MCV (RBC) [Entitic vol] 90 fL Normal 80-100 [facility] Comment on above: Performed By: #### U A #### [facility] ([id number]) [address] [place] [address] 61185 Monocytes (Bld) [#/Vol] 1.1 10*3/uL High 0-0.9 [facility] Comment on above: Performed By: #### U A #### [facility] ([id number]) [address] [place] [address] 70295 Monocytes/100 WBC (Bld) 12.8 % Normal [facility] Comment on above: Performed By: #### U A #### [facility] ([id number]) [address] [place] [address] 22623 Neutrophils/100 WBC (Bld) 58.7 % Normal [facility] Comment on above: Performed By: #### U A #### [facility] ([id number]) [address] [place] [address] 65740 Platelet mean volume (Bld) [Entitic vol] 6.6 fL Low 7-12 [facility] Comment on above: Performed By: #### U A #### [facility] ([id number]) [address] [place] [address] 30914 Platelets (Bld) [#/Vol] 281 10*3/uL Normal 150-450 [facility] Comment on above: Performed By: #### U A #### [facility] ([id number]) [address] [place] [address] 05679 RBC COUNT 4.19 X10E12/L Normal 4.10-5.70 [facility] Comment on above: Performed By: #### U A #### [facility] ([id number]) [address] [place] [address] 07959 WBC (Bld) [#/Vol] 8.8 10*3/uL Normal 4.0-11.0 [facility] Comment on above: Performed By: #### U A #### [facility] ([id number]) [address] [place] [address], [place] [address] CREATININEon 02-17-2024 Creatinine [Mass/Vol] 3.74 mg/dL High 0.70-1.20 [facility] Comment on above: Result Comment: METH OD TRACEABLE TO IDMS STANDARD Performed By: #### E LEC, 3094-0, TELECOMMUNICATION OPERATOR, 06468-7 #### [facility] ([id number]) [address] [place] [address] #### 13846-9, HA1C #### [facility] ([id number]) [address], [address] [place] [address] GFR/1.73 sq M.predicted among non-blacks MDRD (S/P/Bld) [Vol rate/Area] 17 mL/min/{1.73_m2} Low >59 [facility] Comment on above: Result Comment: Reported eGFR is based on the CKD-EPI 2020 equation that does not use a race coefficient. Performed By: #### E LEC, 309-0, TELECOMMUNICATION OPERATOR, 31804-9 #### [facility] ([id number]) [address] [place] [address] 87700 #### 43326-0, HA1C #### [facility] ([id number]) [address], [address] [place] [address] ELECTROLYTESon 02-17-2024 Anion gap [Moles/Vol] 8 mmol/L Normal 5-15 [facility] Comment on above: Performed By: #### E LEC, 3094-0, TELECOMMUNICATION OPERATOR, 80685-3 #### [facility] ([id number]) [address] [place] [address] 75720 #### 95983-4, HA1C #### [facility] ([id number]) [address], [address] [place] [address] Chloride [Moles/Vol] 106 mmol/L Normal 98-109 [facility] Comment on above: Performed By: #### E LEC, 3094-0, TELECOMMUNICATION OPERATOR, 18114-9 #### [facility] ([id number]) [address] [place] [address] 04731 #### 93855-5, HA1C #### [facility] ([id number]) [address], [address] [place] [address] CO2 [Moles/Vol] 21 mmol/L Low 22-32 [facility] Comment on above: Performed By: #### E LEC, 3094-0, TELECOMMUNICATION OPERATOR, 62342-2 #### [facility] ([id number]) [address] [place] [address] 39054 #### 13714-9, HA1C #### [facility] ([id number]) [address], [address] [place] [address] Potassium [Moles/Vol] 5.2 mmol/L High 3.5-5.0 [facility] Comment on above: Performed By: #### E LEC, 3094-0, TELECOMMUNICATION OPERATOR, 26772-1 #### [facility] ([id number]) [address] [place] [address] 57385 #### 96066-5, HA1C #### [facility] ([id number]) [address], [address] [place] [address] Sodium [Moles/Vol] 135 mmol/L Normal 134-146 [facility] Comment on above: Performed By: #### E LEC, 3094-0, TELECOMMUNICATION OPERATOR, 44465-8 #### [facility] ([id number]) [address] [place] [address] 20348 #### 71634-4, HA1C #### [facility] ([id number]) [address], [address] [place] [address] BLOOD UREA NITROGENon 2023 Urea nitrogen [Mass/Vol] 50 mg/dL High 5-27 [facility] Comment on above: Performed By: #### U A #### [facility] ([id number]) [address] [place] [address] 38482 CALCIUMon 01-20-2024 Calcium [Mass/Vol] 8.7 mg/dL Normal 8.5-10.5 [facility] Comment on above: Performed By: #### B MP, CBCA, 1987-08, 19444-3 #### [facility] ([id number]) [address] [place] [address] 88455 #### 63992-1 #### [facility] ([id number]) [address], [address] [place] [address] CBC AND AUTO DIFFon 01-20-20 ABSOLUTE BASOPHIL 0.1 X10E9/L Normal 0.0-0.2 [facility] Comment on above: Performed By: #### B MP, CBCA, 1987-08, 96801-6 #### [facility] ([id number]) [address] [place] [address] 92770 #### 85007-6 #### [facility] ([id number]) [address], [address] [place] [address] ABSOLUTE NEUTROPHIL 6.0 X10E9/L Normal 1.5-6.6 [facility] Comment on above: Performed By: #### B MP, CBCA, 1987-08, 53836-0 #### [facility] ([id number]) [address] [place] [address] 63526 #### 95059-0 #### [facility] ([id number]) [address], [address] [place] [address] Basophils/100 WBC (Bld) 0.6 % Normal [facility] Comment on above: Performed By: #### B MP, CBCA, 1987-08, #### [facility] ([id number]) [address] [place] [address] 61158 #### 57109-9 #### [facility] ([id number]) [address], [address] [place] [address] Eosinophils (Bld) [#/Vol] 0.3 10*3/uL Normal 0.0-0.4 [facility] Comment on above: Performed By: #### B MP, CBCA, 1987-08, 23593-2 #### [facility] ([id number]) [address] [place] [address] 20109 #### 42017-7 #### [facility] ([id number]) [address], [address] [place] [address] Eosinophils/100 WBC (Bld) 3.1 % Normal [facility] Comment on above: Performed By: #### Laura RONDON, CBCA, 1987-08, 82181-4 #### [facility] ([id number]) [address] [place] [address] 37469 #### 78788-0 #### [facility] ([id number]) [address], [address] [place] [address] Erythrocyte distribution width (RBC) [Ratio] 13.5 % Normal 11.5-15.0 [facility] Comment on above: Performed By: #### Laura MP, CBCA, 1987-08, 24921-5 #### [facility] ([id number]) [address] [place] [address] 51666 #### 21100-7 #### [facility] ([id number]) [address], [address] [place] [address] Hematocrit (Bld) [Volume fraction] 36.1 % Low 39-49 [facility] Comment on above: Performed By: #### Laura MP, CBCA, 1987-08, 34474-2 #### [facility] ([id number]) [address] [place] [address] 23490 #### 84282-7 #### [facility] ([id number]) [address], [address] [place] [address] Hemoglobin (Bld) [Mass/Vol] 11.8 g/dL Low 13.0-17.0 [facility] Comment on above: Performed By: #### B MP, CBCA, 1987-08, #### [facility] ([id number]) [address] [place] [address] 23536 #### 38953-2 #### [facility] ([id number]) [address], [address] [place] [address] Lymphocytes (Bld) [#/Vol] 2.0 10*3/uL Normal 1.0-3.5 [facility] Comment on above: Performed By: #### B MP, CBCA, 1987-08, 25955-1 #### [facility] ([id number]) [address] [place] [address] 91907 #### 04532-9 #### [facility] ([id number]) [address], [address] [place] [address] Lymphocytes/100 WBC (Bld) 20.7 % Normal [facility] Comment on above: Performed By: #### B MP, CBCA, 1987-08, 44873-6 #### [facility] ([id number]) [address] [place] [address] 85493 #### 11519-5 #### [facility] ([id number]) [address], [address] [place] [address] MCH (RBC) [Entitic mass] 29.1 pg Normal 27-34 [facility] Comment on above: Performed By: #### B MP, CBCA, 1987-08, 47503-1 #### [facility] ([id number]) [address] [place] [address] 71830 #### 55925-8 #### [facility] ([id number]) [address], [address] [place] [address] MCHC (RBC) [Mass/Vol] 32.8 g/dL Normal 32-36 [facility] Comment on above: Performed By: #### B MP, CBCA, 1987-08, 83182-3 #### [facility] ([id number]) [address] [place] [address] 32651 #### 01071-4 #### [facility] ([id number]) [address], [address] [place] [address] MCV (RBC) [Entitic vol] 89 fL Normal 80-100 [facility] Comment on above: Performed By: #### B MP, CBCA, 1987-08, 00350-6 #### [facility] ([id number]) [address] [place] [address] 66503 #### 85660-1 #### [facility] ([id number]) [address], [address] [place] [address] Monocytes (Bld) [#/Vol] 1.2 10*3/uL High 0-0.9 [facility] Comment on above: Performed By: #### B MP, CBCA, 1987-08, 44210-1 #### [facility] ([id number]) [address] [place] [address] 90730 #### 43757-6 #### [facility] ([id number]) [address], [address] [place] [address] Monocytes/100 WBC (Bld) 12.3 % Normal [facility] Comment on above: Performed By: #### B MP, CBCA, 1987-08, 23188-3 #### [facility] ([id number]) [address] [place] [address] 36058 #### 69207-0 #### [facility] ([id number]) [address], [address] [place] [address] Neutrophils/100 WBC (Bld) 63.3 % Normal [facility] Comment on above: Performed By: #### B MP, CBCA, 1987-08, 17495-3 #### [facility] ([id number]) [address] [place] [address] 50989 #### 51451-5 #### [facility] ([id number]) [address], [address] [place] [address] Platelet mean volume (Bld) [Entitic vol] 7.7 fL Normal 7-12 [facility] Comment on above: Performed By: #### B MP, CBCA, 1987-08, 16704-3 #### [facility] ([id number]) [address] [place] [address] 58130 #### 30252-4 #### [facility] ([id number]) [address], [address] [place] [address] Platelets (Bld) [#/Vol] 264 10*3/uL Normal 150-450 [facility] Comment on above: Performed By: #### B MP, CBCA, 1987-08, 42866-9 #### [facility] ([id number]) [address] [place] [address] 57715 #### 54119-6 #### [facility] ([id number]) [address], [address] [place] [address] RBC COUNT 4.07 X10E12/L Low 4.10-5.70 [facility] Comment on above: Performed By: #### B ALCONSEVENA, 1987-08, 37420-1 #### [facility] ([id number]) [address] [place] [address] 93151 #### 26487-8 #### [facility] ([id number]) [address], [address] [place] [address] WBC (Bld) [#/Vol] 9.4 10*3/uL Normal 4.0-11.0 [facility] Comment on above: Performed By: #### B ALCONSEVENA, 1987-08, 79272-0 #### [facility] ([id number]) [address] [place] [id number] #### [id number] #### [facility] ([id number]) [address], [address] [place] [address] CREATININEon 01-20-2024 Creatinine [Mass/Vol] 3.14 mg/dL High 0.70-1.20 [facility] Comment on above: Result Comment: METH OD TRACEABLE TO IDMS STANDARD Performed By: #### U A #### [facility] ([id number]) [address] [place] [id number] GFR/1.73 sq M.predicted among non-blacks MDRD (S/P/Bld) [Vol rate/Area] 21 mL/min/{1.73_m2} Low >59 [facility] Comment on above: Result Comment: Reported eGFR is based on the CKD-EPI 2020 equation that does not use a race coefficient. Performed By: #### U A #### [facility] ([id number]) [address] [place] [address] ELECTROLYTESon 01-20-2024 Anion gap [Moles/Vol] 8 mmol/L Normal 5-15 [facility] Comment on above: Performed By: #### U A #### [facility] ([id number]) [address] [place] [address] 08041 Chloride [Moles/Vol] 104 mmol/L Normal 98-109 [facility] Comment on above: Performed By: #### U A #### [facility] ([id number]) [address] [place] [address] 14385 CO2 [Moles/Vol] 19 mmol/L Low 22-32 [facility] Comment on above: Performed By: #### U A #### [facility] ([id number]) [address] [place] [address] 08352 Potassium [Moles/Vol] 4.9 mmol/L Normal 3.5-5.0 [facility] Comment on above: Performed By: #### U A #### [facility] ([id number]) [address] [place] [address] 26126 Sodium [Moles/Vol] 131 mmol/L Low 134-146 [facility] Comment on above: Performed By: #### U A #### [facility] ([id number]) [address] [place] [address] [place] [address] ESR Photometric method (Bld) [Velocity]on 01-20-2024 ESR, ERYTHROCYTE SEDIMENTATION RATE 98 mm/h High 0-20 [facility] Comment on above: Performed By: #### U A #### [facility] ([id number]) [address] [place] [address] [place] [address] HGB A1C (GLYCO-HGB)on 2023 Glucose [Mass/Vol] 289 mg/dL Normal [facility] Comment on above: Performed By: #### U A #### [facility] ([id number]) [address] [place] [address] 17245 HbA1c (Bld) [Mass fraction] 11.7 % High 4.4-5.6 [facility] Comment on above: Result Comment: NOTE ADA Guidelines Result HgbA1c Normal : less than 5.7 % Prediabetes : 5.7 % to 6.4 % Diabetes : > 6.4 % Use with caution in patients with abnormal hemoglobin variants as the half-life of red blood cells and in vivo glycation rates are affected. Performed By: #### U A #### [facility] ([id number]) [address] [place] [address] 14261 LIVER PANELon 01-20-2024 Albumin [Mass/Vol] 2.9 g/dL Low 3.2-5.3 [facility] Comment on above: Performed By: #### U A #### [facility] ([id number]) [address] [place] [address] 25736 ALP [Catalytic activity/Vol] 79 U/L Normal 39-130 [facility] Comment on above: Performed By: #### U A #### [facility] ([id number]) [address] [place] [address] 53193 ALT [Catalytic activity/Vol] 26 U/L Normal 0-40 [facility] Comment on above: Performed By: #### U A #### [facility] ([id number]) [address] [place] [address] 41189 AST [Catalytic activity/Vol] 19 U/L Normal 0-41 [facility] Comment on above: Performed By: #### U A #### [facility] ([id number]) [address] [place] [address] 56559 Bilirubin [Mass/Vol] 0.5 mg/dL Normal 0.3-1.2 [facility] Comment on above: Performed By: #### U A #### [facility] ([id number]) [address] [place] [address] 77588 Bilirubin.indirect [Mass/Vol] mg/dL Normal 0.0-0.4 [facility] Comment on above: Performed By: #### U A #### [facility] ([id number]) [address] [place] [address] 99273 Protein [Mass/Vol] 6.9 g/dL Normal 6.0-8.0 [facility] Comment on above: Performed By: #### U A #### [facility] ([id number]) [address] [place] [address] 77340 Lipid 1996 panelon 4 Cholesterol [Mass/Vol] 136 mg/dL Low 150-200 [facility] Comment on above: Performed By: #### U A #### [facility] ([id number]) [address] [place] [address] 29258 Cholesterol in HDL [Mass/Vol] 40 mg/dL Normal >39 [facility] Comment on above: Result Comment: HDL <40 mg/dL - High Risk HDL > or = 40mg/dL- Desirable HDL >60 mg/dL - Negative Risk Performed By: #### U A #### [facility] ([id number]) [address] [place] [address] 34005 Cholesterol in LDL [Mass/Vol] 62 mg/dL Normal <130 [facility] Comment on above: Result Comment: LDL <100 mg/dL - Desirable LDL >160 mg/dL - High Risk Performed By: #### U A #### [facility] ([id number]) [address] [place] [address] 30606 Cholesterol in VLDL [Mass/Vol] 34 mg/dL High 0-30 [facility] Comment on above: Performed By: #### U A #### [facility] ([id number]) [address] [place] [address] 19731 CHOLESTEROL:HDL 3.4 Normal 1.0-5.0 [facility] Comment on above: Performed By: #### U A #### [facility] ([id number]) [address] [place] [address] 08835 Triglyceride [Mass/Vol] 172 mg/dL High 27-150 [facility] Comment on above: Performed By: #### U A #### [facility] ([id number]) [address] [place] [address] 89649 Natriuretic peptide B [Mass/ Vol]on 01-20-2024 Natriuretic peptide B (Bld) [Mass/Vol] 88 pg/mL Normal <100.0 [facility] Comment on above: Performed By: #### U A #### [facility] ([id number]) [address] [place] [address] 49778 Vitamin D+Metabolites [Mass/ Vol]on 01-20-2024 VITAMIN D 25 HYD TOT 15.1 ng/mL Low 30-100 [facility] Comment on above: Result Comment: Vitamin D status 25 [place] Vitamin D Deficiency <20 ng/mL Insufficiency 20-29 ng/mL Sufficiency 30-100 ng/mL Toxicity >100 ng/mL NOTE: A pediatric reference range has not been established by the line painting machine operator of this kit. The [employer] [employer] recommends a Vitamin D level of = or >20ng/mL in infants and children. Performed By: #### U A #### [facility] ([id number]) [address] [place] [address] 91551 BLOOD UREA NITROGENon 2023 Urea nitrogen [Mass/Vol] 50 mg/dL High 5-27 [facility] Comment on above: Performed By: #### B ALCON, CBCA, 1987-08, 22417-2 #### [facility] ([id number]) [address] [place] [address] 03376 #### 13598-9 #### [facility] ([id number]) [address], [address] [place] [address] CBC AND AUTO DIFFon 12-16-19 24 ABSOLUTE BASOPHIL 0.0 X10E9/L Normal 0.0-0.2 [facility] Comment on above: Performed By: #### B ALCON, CBCA, 1987-08, 29445-1 #### [facility] ([id number]) [address] [place] [address] 02230 #### 61940-6 #### [facility] ([id number]) [address] [facility], [address] [place] [address] ABSOLUTE NEUTROPHIL 5.7 X10E9/L Normal 1.5-6.6 [facility] Comment on above: Performed By: #### Laura RONDON, CBCA, 1987-08, 17168-4 #### [facility] ([id number]) [address] [place] [address] 33878 #### 05175-6 #### [facility] ([id number]) [address], [address] [place] [address] Basophils/100 WBC (Bld) 0.4 % Normal [facility] Comment on above: Performed By: #### Laura RONDON, CBCA, 1987-08, #### [facility] ([id number]) [address] [place] [address] 37436 #### 60446-3 #### [facility] ([id number]) [address], [address] [place] [address] Eosinophils (Bld) [#/Vol] 0.4 10*3/uL Normal 0.0-0.4 [facility] Comment on above: Performed By: #### Laura RONDON CBCA, 1987-08, #### [facility] ([id number]) [address] [place] [address] 55787 #### 87929-9 #### [facility] ([id number]) [address], [address] [place] [address] Eosinophils/100 WBC (Bld) 4.8 % Normal [facility] Comment on above: Performed By: #### B ALCON CBCA, 1987-08, #### [facility] ([id number]) [address] [place] [address] 79657 #### 23027-9 #### [facility] ([id number]) [address], [address] [place] [address] Erythrocyte distribution width (RBC) [Ratio] 14.7 % Normal 11.5-15.0 [facility] Comment on above: Performed By: #### Laura RONDON CBCA, 1987-08, #### [facility] ([id number]) [address] [place] [address] 47244 #### 97778-0 #### [facility] ([id number]) [address], [address] [place] [address] Hematocrit (Bld) [Volume fraction] 39.0 % Normal 39-49 [facility] Comment on above: Performed By: #### Laura RONDON CBCA, 1987-08, #### [facility] ([id number]) [address] [place] [address] 49627 #### 36080-6 #### [facility] ([id number]) [address], [address] [place] [address] Hemoglobin (Bld) [Mass/Vol] 13.3 g/dL Normal 13.0-17.0 [facility] Comment on above: Performed By: #### B MP, CBCA, 1987-08, #### [facility] ([id number]) [address] [place] [address] 36733 #### 75195-7 #### [facility] ([id number]) [address] [place] [address] Lymphocytes (Bld) [#/Vol] 1.7 10*3/uL Normal 1.0-3.5 [facility] Comment on above: Performed By: #### B ALCON, CBCA, 1987-08, #### [facility] ([id number]) [address] [place] [address] 10704 #### 10590-9 #### [facility] ([id number]) [address] [place] [address] Lymphocytes/100 WBC (Bld) 19.3 % Normal [facility] Comment on above: Performed By: #### Laura RONDON, CBCA, 1987-08, #### [facility] ([id number]) [address] [place] [address] 95755 #### 66891-8 #### [facility] ([id number]) [address], [address] [place] [address] MCH (RBC) [Entitic mass] 29.8 pg Normal 27-34 [facility] Comment on above: Performed By: #### B MP, CBCA, 1987-08, #### [facility] ([id number]) [address] [place] [address] 90318 #### 91497-4 #### [facility] ([id number]) [address], [address] [place] [address] MCHC (RBC) [Mass/Vol] 34.0 g/dL Normal 32-36 [facility] Comment on above: Performed By: #### Laura RONDON, CBCA, 1987-08, #### [facility] ([id number]) [address] [place] [address] 22672 #### 32329-3 #### [facility] ([id number]) [address] [place] [address] MCV (RBC) [Entitic vol] 88 fL Normal 80-100 [facility] Comment on above: Performed By: #### B ALCON, CBCA, 1987-08, #### [facility] ([id number]) [address] [place] [address] 31529 #### 11275-8 #### [facility] ([id number]) [address], [address] [place] [address] Monocytes (Bld) [#/Vol] 0.8 10*3/uL Normal 0-0.9 [facility] Comment on above: Performed By: #### Laura RONDON, CBCA, 1987-08, #### [facility] ([id number]) [address] [place] [address] 19491 #### 24520-8 #### [facility] ([id number]) [address] [place] [address] Monocytes/100 WBC (Bld) 8.8 % Normal [facility] Comment on above: Performed By: #### Laura MP, CBCA, 1987-08, #### [facility] ([id number]) [address] [place] [address] 74456 #### 82354-0 #### [facility] ([id number]) [address], [address] [place] [address] Neutrophils/100 WBC (Bld) 66.7 % Normal [facility] Comment on above: Performed By: #### B MP, CBCA, 1987-08, 65338-4 #### [facility] ([id number]) [address] [place] [address] 00166 #### 36443-8 #### [facility] ([id number]) [address], [address] [place] [address] Platelet mean volume (Bld) [Entitic vol] 7.7 fL Normal 7-12 [facility] Comment on above: Performed By: #### B MP, CBCA, 1987-08, #### [facility] ([id number]) [address] [place] [address] 48482 #### 45475-3 #### [facility] ([id number]) [address], [address] [place] [address] Platelets (Bld) [#/Vol] 286 10*3/uL Normal 150-450 [facility] Comment on above: Performed By: #### B MP, CBCA, 1987-08, #### [facility] ([id number]) [address] [place] [address] 23629 #### 22672-2 #### [facility] ([id number]) [address], [address] [place] [address] RBC COUNT 4.46 X10E12/L Normal 4.10-5.70 [facility] Comment on above: Performed By: #### B MP, CBCA, 1987-08, 05612-0 #### [facility] ([id number]) [address] [place] [address] 94550 #### 81552-8 #### [facility] ([id number]) [address] [place] [address] WBC (Bld) [#/Vol] 8.6 10*3/uL Normal 4.0-11.0 [facility] Comment on above: Performed By: #### B JAMES RONDON, 1987-08, 96632-9 #### [facility] ([id number]) [address] [place] [address] 94772 #### 35051-6 #### [facility] ([id number]) [address] [facility] [address], [address] [place] [address] CREATININEon 12-16-2023 Creatinine [Mass/Vol] 3.32 mg/dL High 0.70-1.20 [facility] Comment on above: Result Comment: METH OD TRACEABLE TO IDMS STANDARD Performed By: #### B JAMES RONDON, 1987-08, 91519-5 #### [facility] ([id number]) [address] [place] [address] 15548 #### 41181-8 #### [facility] ([id number]) [address] [facility], [address] [address] GFR/1.73 sq M.predicted among non-blacks MDRD (S/P/Bld) [Vol rate/Area] 20 mL/min/{1.73_m2} Low >59 [facility] Comment on above: Result Comment: Reported eGFR is based on the CKD-EPI 2020 equation that does not use a race coefficient. Performed By: #### B JAMES RONDON, 1987-08, 12405-5 #### [facility] ([id number]) [address] [place] [address] 67339 #### 64158-8 #### [facility] ([id number]) [address] [facility], [address] [place] [address] ELECTROLYTESon 12-16-2023 Anion gap [Moles/Vol] 8 mmol/L Normal 5-15 [facility] Comment on above: Performed By: #### JAMES Sanchez MP, 1987-08, 50628-9 #### [facility] ([id number]) [address] [place] [address] 58645 #### 45902-7 #### [facility] ([id number]) [address] [place] [address] Chloride [Moles/Vol] 103 mmol/L Normal 98-109 [facility] Comment on above: Performed By: #### JAMES Sanchez MP, 1987-08, 29477-7 #### [facility] ([id number]) [address] [place] [address] 53036 #### 28176-2 #### [facility] ([id number]) [address], [address] [place] [address] CO2 [Moles/Vol] 18 mmol/L Low 22-32 [facility] Comment on above: Performed By: #### JAMES Sanchez MP, 1987-08, 32035-5 #### [facility] ([id number]) [address] [place] [address] 14736 #### 75040-3 #### [facility] ([id number]) [address] [place] [address] Potassium [Moles/Vol] 4.5 mmol/L Normal 3.5-5.0 [facility] Comment on above: Performed By: #### JAMES Sanchez MP, 1987-08, 94634-1 #### [facility] ([id number]) [address] [place] [address] 65337 #### 32155-4 #### [facility] ([id number]) [address] [place] [address] Sodium [Moles/Vol] 129 mmol/L Low 134-146 [facility] Comment on above: Performed By: #### B MP, CBCA, 1987-, 75092-0 #### [facility] ([id number]) [address] [facility] [place] [address] #### 78860-7 #### [facility] ([id number]) [address], [address] [place] [address] BLOOD UREA NITROGENon 2023 Urea nitrogen [Mass/Vol] 41 mg/dL High 5-27 [facility] Comment on above: Performed By: #### C BCA, 3094-0, TELECOMMUNICATION OPERATOR, ELEC #### [facility] ([id number]) [address], [address] [place] [address] CBC AND AUTO DIFFon 11-19-19 ABSOLUTE BASOPHIL 0.2 X10E9/L Normal 0.0-0.2 [facility] Comment on above: Performed By: #### C BCA, 3094-0, TELECOMMUNICATION OPERATOR, ELEC #### [facility] ([id number]) [address], [address] [place] [address] Basophils/100 WBC (Bld) 1.9 % Normal [facility] Comment on above: Performed By: #### C BCA, 3094-0, TELECOMMUNICATION OPERATOR, ELEC #### [facility] ([id number]) [address], [address] [place] [address] KATHERINE 1+ Abnormal NONE [facility] Comment on above: Performed By: #### C BCA, 3094-0, TELECOMMUNICATION OPERATOR, ELEC #### [facility] ([id number]) [address], [address] [place] [address] Eosinophils (Bld) [#/Vol] 0.4 10*3/uL Normal 0.0-0.4 [facility] Comment on above: Performed By: #### C BCA, 3094-0, TELECOMMUNICATION OPERATOR, ELEC #### [facility] ([id number]) [address], [address] [place] [address] Eosinophils/100 WBC (Bld) 3.8 % Normal [facility] Comment on above: Performed By: #### C BCA, 3094-0, TELECOMMUNICATION OPERATOR, ELEC #### [facility] ([id number]) [address], [facility] [address] [place] [address] Erythrocyte distribution width (RBC) [Ratio] 14.4 % Normal 11.5-15.0 [facility] Comment on above: Performed By: #### C BCA, 3094-0, TELECOMMUNICATION OPERATOR, ELEC #### [facility] ([id number]) [address] [address] [place] [address] Hematocrit (Bld) [Volume fraction] 40.3 % Normal 39-49 [facility] Comment on above: Performed By: #### C BCA, 3094-0, TELECOMMUNICATION OPERATOR, ELEC #### [facility] ([id number]) [address] [address] [place] [address] Hemoglobin (Bld) [Mass/Vol] 13.4 g/dL Normal 13.0-17.0 [facility] Comment on above: Performed By: #### C BCA, 3094-0, TELECOMMUNICATION OPERATOR, ELEC #### [facility] ([id number]) [address] [address] [place] [address] Lymphocytes (Bld) [#/Vol] 2.0 10*3/uL Normal 1.0-3.5 [facility] Comment on above: Performed By: #### C BCA, 3094-0, TELECOMMUNICATION OPERATOR, ELEC #### [facility] ([id number]) [address] [address] [place] [address] Lymphocytes/100 WBC (Bld) 21.7 % Normal [facility] Comment on above: Performed By: #### C BCA, 3094-0, TELECOMMUNICATION OPERATOR, ELEC #### [facility] ([id number]) [address], [address] [place] [address] MCH (RBC) [Entitic mass] 29.6 pg Normal 27-34 [facility] Comment on above: Performed By: #### C IRENE, 3094-0, TELECOMMUNICATION OPERATOR, ELEC #### [facility] ([id number]) [address], [address] [place] [address] MCHC (RBC) [Mass/Vol] 33.4 g/dL Normal 32-36 [facility] Comment on above: Performed By: #### C IRENE, 3094-0, TELECOMMUNICATION OPERATOR, ELEC #### [facility] ([id number]) [address], [facility] [address] [place] [address] MCV (RBC) [Entitic vol] 89 fL Normal 80-100 [facility] Comment on above: Performed By: #### C IRENE, 3094-0, TELECOMMUNICATION OPERATOR, ELEC #### [facility] ([id number]) [address], [facility] [address] [place] [address] Monocytes (Bld) [#/Vol] 0.6 10*3/uL Normal 0-0.9 [facility] Comment on above: Performed By: #### C IRENE, 3094-0, TELECOMMUNICATION OPERATOR, ELEC #### [facility] ([id number]) [address], [facility] [address] [place] [address] Monocytes/100 WBC (Bld) 6.6 % Normal [facility] Comment on above: Performed By: #### C BCA, 3094-0, TELECOMMUNICATION OPERATOR, ELEC #### [facility] ([id number]) [address] [address] [place] [address] Neutrophils (Bld) [#/Vol] 6.1 10*3/uL Normal 1.5-6.6 [facility] Comment on above: Performed By: #### C IRENE, 3094-0, TELECOMMUNICATION OPERATOR, ELEC #### [facility] ([id number]) [address], [address] [place] [address] Platelet mean volume (Bld) [Entitic vol] 8.0 fL Normal 7-12 [facility] Comment on above: Performed By: #### C BCA, 3094-0, TELECOMMUNICATION OPERATOR, ELEC #### [facility] ([id number]) [address] [address] [place] [address] Platelets (Bld) [#/Vol] 253 10*3/uL Normal 150-450 [facility] Comment on above: Performed By: #### C BCA, 3094-0, TELECOMMUNICATION OPERATOR, ELEC #### [facility] ([id number]) [address], [facility] [address] [place] [address] RBC COUNT 4.54 X10E12/L Normal 4.10-5.70 [facility] Comment on above: Performed By: #### C BCA, 3094-0, TELECOMMUNICATION OPERATOR, ELEC #### [facility] ([id number]) [address] [address] [place] [address] SEG NEUTROPHIL 66.0 % Normal [facility] Comment on above: Performed By: #### C BCA, 3094-0, TELECOMMUNICATION OPERATOR, ELEC #### [facility] ([id number]) [address] [address] [place] [address] WBC (Bld) [#/Vol] 9.3 10*3/uL Normal 4.0-11.0 [facility] Comment on above: Performed By: #### C BCA, 3094-0, TELECOMMUNICATION OPERATOR, ELEC #### [facility] ([id number]) [address] [address] [place] [address] CREATININEon 11-19-2023 Creatinine [Mass/Vol] 3.18 mg/dL High 0.60-1.30 [facility] Comment on above: Result Comment: METH OD TRACEABLE TO IDMS STANDARD Performed By: #### C BCA, 3094-0, TELECOMMUNICATION OPERATOR, ELEC #### [facility] ([id number]) [address], [address] [place] [address] GFR/1.73 sq M.predicted among non-blacks MDRD (S/P/Bld) [Vol rate/Area] 21 mL/min/{1.73_m2} Low >59 [facility] Comment on above: Result Comment: Reported eGFR is based on the CKD-EPI 2020 equation that does not use a race coefficient. Performed By: #### C BCA, 3094-0, TELECOMMUNICATION OPERATOR, ELEC #### [facility] ([id number]) [address], [address] [place] [address] ELECTROLYTESon 11-19-2023 Anion gap [Moles/Vol] 9 mmol/L Normal 5-15 [facility] Comment on above: Performed By: #### C BCA, 3094-0, TELECOMMUNICATION OPERATOR, ELEC #### [facility] ([id number]) [address], [address] [place] [address] Chloride [Moles/Vol] 100 mmol/L Normal 98-109 [facility] Comment on above: Performed By: #### C BCA, 3094-0, TELECOMMUNICATION OPERATOR, ELEC #### [facility] ([id number]) [address], [address] [place] [address] CO2 [Moles/Vol] 22 mmol/L Normal 22-32 [facility] Comment on above: Performed By: #### C BCA, 3094-0, TELECOMMUNICATION OPERATOR, ELEC #### [facility] ([id number]) [address], [address] [place] [address] Potassium [Moles/Vol] 3.9 mmol/L Normal 3.5-5.0 [facility] Comment on above: Performed By: #### C BCA, 3094-0, TELECOMMUNICATION OPERATOR, ELEC #### [facility] ([id number]) [address], [address] [place] [address] Sodium [Moles/Vol] 131 mmol/L Low 134-146 [facility] Comment on above: Performed By: #### C BCA, 3094-0, TELECOMMUNICATION OPERATOR, ELEC #### [facility] ([id number]) [address], [address] [place] [address] BLOOD UREA NITROGENon 2023 Urea nitrogen [Mass/Vol] 35 mg/dL High 5-27 [facility] Comment on above: Performed By: #### B MP, CBCA, 1987-08, 23431-3 #### [facility] ([id number]) [address] [place] [address] 69470 #### 06082-5 #### [facility] ([id number]) [address], [address] [place] [address] CALCIUMon 10-23-2023 Calcium [Mass/Vol] 8.1 mg/dL Low 8.5-10.5 [facility] Comment on above: Performed By: #### B MP, CBCA, 1987-08, 59044-9 #### [facility] ([id number]) [address] [place] [address] 09827 #### 22085-5 #### [facility] ([id number]) [address], [address] [place] [address] CBC AND AUTO DIFFon 10-23-19 24 ABSOLUTE BASOPHIL 0.0 X10E9/L Normal 0.0-0.2 [facility] Comment on above: Performed By: #### B MP, CBCA, 1987-08, 45955-7 #### [facility] ([id number]) [address] [place] [address] 26117 #### 13053-8 #### [facility] ([id number]) [address], [address] [place] [address] ABSOLUTE NEUTROPHIL 5.4 X10E9/L Normal 1.5-6.6 [facility] Comment on above: Performed By: #### B MP, CBCA, 1987-08, 52056-9 #### [facility] ([id number]) [address] [place] [address] 78433 #### 66983-3 #### [facility] ([id number]) [address], [address] [place] [address] Basophils/100 WBC (Bld) 0.5 % Normal [facility] Comment on above: Performed By: #### B MP, CBCA, 1987-08, #### [facility] ([id number]) [address] [place] [address] 01296 #### 83035-6 #### [facility] ([id number]) [address], [address] [place] [address] Eosinophils (Bld) [#/Vol] 0.3 10*3/uL Normal 0.0-0.4 [facility] Comment on above: Performed By: #### B MP, CBCA, 1987-08, 06638-1 #### [facility] ([id number]) [address] [place] [address] 20438 #### 03524-4 #### [facility] ([id number]) [address], [address] [place] [address] Eosinophils/100 WBC (Bld) 3.2 % Normal [facility] Comment on above: Performed By: #### B MP, CBCA, 1987-08, 94314-5 #### [facility] ([id number]) [address] [place] [address] 66142 #### 80074-9 #### [facility] ([id number]) [address], [address] [place] [address] Erythrocyte distribution width (RBC) [Ratio] 14.4 % Normal 11.5-15.0 [facility] Comment on above: Performed By: #### Laura RONDON, CBCA, 1987-08, 59380-6 #### [facility] ([id number]) [address] [place] [address] 37059 #### 07297-1 #### [facility] ([id number]) [address], [address] [place] [address] Hematocrit (Bld) [Volume fraction] 39.7 % Normal 39-49 [facility] Comment on above: Performed By: #### B ALCON CBCA, 1987-08, 49155-6 #### [facility] ([id number]) [address] [place] [address] 90397 #### 45797-0 #### [facility] ([id number]) [address], [address] [place] [address] Hemoglobin (Bld) [Mass/Vol] 13.1 g/dL Normal 13.0-17.0 [facility] Comment on above: Performed By: #### Laura RONDON CBCA, 1987-08, 89411-1 #### [facility] ([id number]) [address] [place] [address] 44444 #### 23982-1 #### [facility] ([id number]) [address], [address] [place] [address] Lymphocytes (Bld) [#/Vol] 2.1 10*3/uL Normal 1.0-3.5 [facility] Comment on above: Performed By: #### Laura RONDON, CBCA, 1987-08, 73127-6 #### [facility] ([id number]) [address] [place] [address] 82114 #### 10219-1 #### [facility] ([id number]) [address], [address] [place] [address] Lymphocytes/100 WBC (Bld) 24.5 % Normal [facility] Comment on above: Performed By: #### Laura RONDON CBCA, 1987-08, 89592-0 #### [facility] ([id number]) [address] [place] [address] 87785 #### 84865-6 #### [facility] ([id number]) [address], [address] [place] [address] MCH (RBC) [Entitic mass] 29.0 pg Normal 27-34 [facility] Comment on above: Performed By: #### Laura RONDON CBCA, 1987-08, 92131-3 #### [facility] ([id number]) [address] [place] [address] 53128 #### 40142-0 #### [facility] ([id number]) [address], [address] [place] [address] MCHC (RBC) [Mass/Vol] 32.9 g/dL Normal 32-36 [facility] Comment on above: Performed By: #### Laura RONDON CBCA, 1987-08, #### [facility] ([id number]) [address] [place] [address] 85883 #### 88378-7 #### [facility] ([id number]) [address], [address] [place] [address] MCV (RBC) [Entitic vol] 88 fL Normal 80-100 [facility] Comment on above: Performed By: #### Laura RONDON CBCA, 1987-08, 47492-2 #### [facility] ([id number]) [address] [place] [address] 99171 #### 42522-7 #### [facility] ([id number]) [address], [address] [place] [address] Monocytes (Bld) [#/Vol] 0.8 10*3/uL Normal 0-0.9 [facility] Comment on above: Performed By: #### Laura RONDON CBCA, 1987-08, 39241-6 #### [facility] ([id number]) [address] [place] [address] 23492 #### 54984-3 #### [facility] ([id number]) [address], [address] [place] [address] Monocytes/100 WBC (Bld) 9.2 % Normal [facility] Comment on above: Performed By: #### Laura RONDON CBCA, 1987-08, 54376-8 #### [facility] ([id number]) [address] [place] [address] 04989 #### 92078-1 #### [facility] ([id number]) [address], [address] [place] [address] Neutrophils/100 WBC (Bld) 62.6 % Normal [facility] Comment on above: Performed By: #### SEVEN Sanchez MPA, 1987-08, #### [facility] ([id number]) [address] [place] [address] 68919 #### 32052-7 #### [facility] ([id number]) [address], [address] [place] [address] Platelet mean volume (Bld) [Entitic vol] 8.6 fL Normal 7-12 [facility] Comment on above: Performed By: #### Laura RONDON CBCA, 1987-08, 17718-1 #### [facility] ([id number]) [address] [place] [address] 90766 #### 41637-4 #### [facility] ([id number]) [address], [address] [place] [address] Platelets (Bld) [#/Vol] 247 10*3/uL Normal 150-450 [facility] Comment on above: Performed By: #### B SEVEN RONDONA, 1987-08, #### [facility] ([id number]) [address] [place] [address] 05519 #### 37550-7 #### [facility] ([id number]) [address] [place] [address], [address] [place] [address] RBC COUNT 4.51 X10E12/L Normal 4.10-5.70 [facility] Comment on above: Performed By: #### B JAMES RONDON, 1987-08, #### [facility] ([id number]) [address] [place] [address] 03928 #### 99787-1 #### [facility] ([id number]) [address] [place] [address], [address] [place] [address] WBC (Bld) [#/Vol] 8.5 10*3/uL Normal 4.0-11.0 [facility] Comment on above: Performed By: #### B JAMES RONDON, 1987-08, #### [facility] ([id number]) [address] [place] [address] 57715 #### 06679-3 #### [facility] ([id number]) [address] [place] [address], [address] [place] [address] CREATININEon 10-23-2023 Creatinine [Mass/Vol] 2.69 mg/dL High 0.70-1.20 [facility] Comment on above: Result Comment: METH OD TRACEABLE TO IDMS STANDARD Performed By: #### B ALCON CBCA, 1987-08, #### [facility] ([id number]) [address] [place] [address] 81053 #### 13188-5 #### [facility] ([id number]) [address], [address] [place] [address] GFR/1.73 sq M.predicted among non-blacks MDRD (S/P/Bld) [Vol rate/Area] 26 mL/min/{1.73_m2} Low >59 [facility] Comment on above: Result Comment: Reported eGFR is based on the CKD-EPI 2020 equation that does not use a race coefficient. Performed By: #### B JAMES RONDON, 1987-08, 64982-2 #### [facility] ([id number]) [address] [place] [address] 37484 #### 25105-7 #### [facility] ([id number]) [address], [address] [place] [address] Calcium.ionized (Bld) [Moles /Vol]on 10-23-2023 PORTABLE ICA 4.8 mg/dL Normal 4.5-5.3 [facility] Comment on above: Performed By: #### B JAMES RONDON, 1987-08, 08333-4 #### [facility] ([id number]) [address] [place] [address] 55873 #### 63725-1 #### [facility] ([id number]) [address], [address] [place] [address] ELECTROLYTESon 10-23-2023 Anion gap [Moles/Vol] 5 mmol/L Normal 5-15 [facility] Comment on above: Performed By: #### B JAMES RONDON, 1987-08, 18514-3 #### [facility] ([id number]) [address] [place] [address] 65056 #### 91832-8 #### [facility] ([id number]) [address], [address] [place] [address] Chloride [Moles/Vol] 108 mmol/L Normal 98-109 [facility] Comment on above: Performed By: #### Lauar RONDON CBCA, 1987-08, 22255-3 #### [facility] ([id number]) [address] [place] [address] 68178 #### 83348-3 #### [facility] ([id number]) [address], [address] [place] [address] CO2 [Moles/Vol] 18 mmol/L Low 22-32 [facility] Comment on above: Performed By: #### B ALCON CBCA, 1987-08, 27507-0 #### [facility] ([id number]) [address] [place] [address] 05808 #### 56410-4 #### [facility] ([id number]) [address], [address] [place] [address] Potassium [Moles/Vol] 4.1 mmol/L Normal 3.5-5.0 [facility] Comment on above: Performed By: #### Laura RONDON CBCA, 1987-08, 80911-6 #### [facility] ([id number]) [address] [place] [address] 26561 #### 33161-2 #### [facility] ([id number]) [address], [address] [place] [address] Sodium [Moles/Vol] 131 mmol/L Low 134-146 [facility] Comment on above: Performed By: #### Laura RONDON CBCA, 1987-08, 52871-5 #### [facility] ([id number]) [address] [place] [address] 88137 #### 71892-1 #### [facility] ([id number]) [address], [address] [place] [address] ESR Photometric method (Bld) [Velocity]on 10-23-2023 ESR, ERYTHROCYTE SEDIMENTATION RATE 89 mm/h High 0-20 [facility] Comment on above: Performed By: #### B SEVEN RONDONA, 1987-08, 72997-3 #### [facility] ([id number]) [address] [place] [address] 76658 #### 20719-6 #### [facility] ([id number]) [address], [address] [place] [address] HGB A1C (GLYCO-HGB)on 2023 Glucose [Mass/Vol] 235 mg/dL Normal [facility] Comment on above: Performed By: #### B SEVEN RONDONA, 93994-9 #### [facility] ([id number]) [address] [place] [address] 45161 #### 21055-9 #### [facility] ([id number]) [address], [address] [place] [address] HbA1c (Bld) [Mass fraction] 9.8 % High 4.4-5.6 [facility] Comment on above: Result Comment: NOTE ADA Guidelines Result HgbA1c Normal : less than 5.7 % Prediabetes : 5.7 % to 6.4 % Diabetes : > 6.4 % Use with caution in patients with abnormal hemoglobin variants as the half-life of red blood cells and in vivo glycation rates are affected. Performed By: #### B JAMES RONDON, 1987-08, 73518-5 #### [facility] ([id number]) [address] [place] [address] 21666 #### 86472-1 #### [facility] ([id number]) [address], [address] [place] [address] LIVER PANELon 10-23-2023 Albumin [Mass/Vol] 2.8 g/dL Low 3.2-5.3 [facility] Comment on above: Performed By: #### Laura RONDON CBCA, 1987-08, 10611-2 #### [facility] ([id number]) [address] [place] [address] 72534 #### 71086-5 #### [facility] ([id number]) [address], [address] [place] [address] ALP [Catalytic activity/Vol] 86 U/L Normal 39-130 [facility] Comment on above: Performed By: #### Laura RONDON CBCA, 1987-08, 96733-4 #### [facility] ([id number]) [address] [place] [address] 37224 #### 42017-9 #### [facility] ([id number]) [address], [address] [place] [address] ALT [Catalytic activity/Vol] 19 U/L Normal 0-40 [facility] Comment on above: Performed By: #### Laura RONDON CBCA, 1987-08, 44626-9 #### [facility] ([id number]) [address] [place] [address] 07179 #### 42297-5 #### [facility] ([id number]) [address], [address] [place] [address] AST [Catalytic activity/Vol] 15 U/L Normal 0-41 [facility] Comment on above: Performed By: #### Laura RONDON CBCA, 1987-08, 38987-0 #### [facility] ([id number]) [address] [place] [address] 16156 #### 67898-5 #### [facility] ([id number]) [address], [address] [place] [address] Bilirubin [Mass/Vol] 0.5 mg/dL Normal 0.3-1.2 [facility] Comment on above: Performed By: #### JAMES Sanchez MP, 1987-08, 22568-4 #### [facility] ([id number]) [address] [place] [address] 82713 #### 08841-3 #### [facility] ([id number]) [address], [address] [place] [address] Bilirubin.indirect [Mass/Vol] mg/dL Normal 0.0-0.4 [facility] Comment on above: Performed By: #### JAMES Sanchez MP, 1987-08, 04566-2 #### [facility] ([id number]) [address] [place] [address] 38981 #### 37324-2 #### [facility] ([id number]) [address], [address] [place] [address] Protein [Mass/Vol] 6.4 g/dL Normal 6.0-8.0 [facility] Comment on above: Performed By: #### JAMES Sanchez MP, 1987-08, 01901-6 #### [facility] ([id number]) [address] [place] [address] 47582 #### 36752-6 #### [facility] ([id number]) [address], [address] [place] [address] Lipid 1996 panelon 4 Cholesterol [Mass/Vol] 135 mg/dL Low 150-200 [facility] Comment on above: Performed By: #### JAMES Sanchez MP, 1987-08, 86796-1 #### [facility] ([id number]) [address] [place] [address] 87894 #### 87457-1 #### [facility] ([id number]) [address], [address] [place] [address] Cholesterol in HDL [Mass/Vol] 40 mg/dL Normal >39 [facility] Comment on above: Result Comment: HDL <40 mg/dL - High Risk HDL > or = 40mg/dL- Desirable HDL >60 mg/dL - Negative Risk Performed By: ###[place], 09840-5 #### [facility] ([id number]) [address] [place] [address] 28415 #### 88763-7 #### [facility] ([id number]) [address], [address] [place] [address] Cholesterol in LDL [Mass/Vol] 57 mg/dL Normal <130 [facility] Comment on above: Result Comment: LDL <100 mg/dL - Desirable LDL >160 mg/dL - High Risk Performed By: ###J[place], 35452-2 #### [facility] ([id number]) [address] [place] [address] 24567 #### 86104-2 #### [facility] ([id number]) [address], [address] [place] [address] Cholesterol in VLDL [Mass/Vol] 38 mg/dL High 0-30 [facility] Comment on above: Performed By: #J[place], 80576-3 #### [facility] ([id number]) [address] [place] [address] 10557 #### 80658-5 #### [facility] ([id number]) [address] [place] [address], [address] [place] [address] CHOLESTEROL:HDL 3.4 Normal 1.0-5.0 [facility] Comment on above: Performed By: #### B JMAES RONDON, 1987-08, 21732-4 #### [facility] ([id number]) [address] [place] [address] 00731 #### 90451-1 #### [facility] ([id number]) [address] [place] [address], [facility] [address] [place] [address] Triglyceride [Mass/Vol] 192 mg/dL High 27-150 [facility] Comment on above: Performed By: #### B JAMES RONDON, 1987-08, 12783-1 #### [facility] ([id number]) [address] [place] [address] 46895 #### 71042-3 #### [facility] ([id number]) [address] [place] [address], [facility] [address] [place] [address] MAGNESIUMon 10-23-2023 Magnesium [Mass/Vol] 2.1 mg/dL Normal 1.8-2.6 [facility] Comment on above: Performed By: #### JAMES Sanchez MP, 1987-08, 34299-2 #### [facility] ([id number]) [address] [place] [address] 94904 #### 10615-2 #### [facility] ([id number]) [address] [place] [address], [facility] [address] [place] [address] Natriuretic peptide.B prohor adrianne N-Terminal IA [Mass/Vol]on 10-23-2023 Natriuretic peptide B (Bld) [Mass/Vol] 1528 pg/mL High <=88 [facility] Comment on above: [...] absence of renal failure. Test Performed by: [address] [address] Vice President Of Brand Management: Brittani Nieves Ph.D.; CLIA# [id number] Performed By: #### B ALCON, CBCA, 1987-08, 17633-2 #### [facility] ([id number]) [address] [place] [address] 79680 #### 17487-0 #### [facility] ([id number]) [address], [address] [place] [address] Prostate specific Ag [Mass/V ol]on 10-23-2023 PSA SCREEN 1.65 ng/mL Normal 0.00-4.00 [facility] Comment on above: Result Comment: The method used for this test is Rufus Rommel DXI chemiluminescent immunoassay. Values obtained by different assay methods cannot be used interchangeably. Performed By: #### B ALCON, CBCA, 1987-08, 70699-3 #### [facility] ([id number]) [address] [place] [address] 43326 #### 35645-3 #### [facility] ([id number]) [address], [address] [place] [address] Vitamin D+Metabolites [Mass/ Vol]on 10-23-2023 VITAMIN D 25 HYD TOT 8.3 ng/mL Low 30-100 [facility] Comment on above: Result Comment: Vitamin D status 25 [place] Vitamin D Deficiency <20 ng/mL Insufficiency 20-29 ng/mL Sufficiency 30-100 ng/mL Toxicity >100 ng/mL NOTE: A pediatric reference range has not been established by the line painting machine operator of this kit. The [employer] [employer] recommends a Vitamin D level of = or >20ng/mL in infants and children. Performed By: #### B JAMES RONDON, 1987-08, 92350-9 #### [facility] ([id number]) [address] [place] [address] 77481 #### 93822-5 #### [facility] ([id number]) [address], [address] [place] [address] BLOOD UREA NITROGENon 2023 Urea nitrogen [Mass/Vol] 33 mg/dL High 5-27 [facility] Comment on above: Performed By: #### B JAMES RONDON, 1987-08, #### [facility] ([id number]) [address] [place] [address] 53522 #### 70194-0 #### [facility] ([id number]) [address], [address] [place] [address] CREATININEon 09-03-2023 Creatinine [Mass/Vol] 2.42 mg/dL High 0.70-1.20 [facility] Comment on above: Result Comment: METH OD TRACEABLE TO IDMS STANDARD Performed By: #### B JAMES RONDON, 1987-08, 21416-1 #### [facility] ([id number]) [address] [place] [address] 30948 #### 86125-3 #### [facility] ([id number]) [address], [address] [place] [address] GFR/1.73 sq M.predicted among non-blacks MDRD (S/P/Bld) [Vol rate/Area] 29 mL/min/{1.73_m2} Low >59 [facility] Comment on above: Result Comment: Reported eGFR is based on the CKD-EPI 2020 equation that does not use a race coefficient. Performed By: #### B JAMES RONDON, 1987-08, 06198-1 #### [facility] ([id number]) [address] [place] [address]797 #### 42403-5 #### [facility] ([id number]) [address], [address] [place] [address] ELECTROLYTESon 09-03-2023 Anion gap [Moles/Vol] 7 mmol/L Normal 5-15 [facility] Comment on above: Performed By: #### Laura RONDON CBCA, 1987-08, 23573-8 #### [facility] ([id number]) [address] [place] [address]246 #### 45799-3 #### [facility] ([id number]) [address], [address] [place] [address] Chloride [Moles/Vol] 106 mmol/L Normal 98-109 [facility] Comment on above: Performed By: #### Laura RONDON CBCA, 1987-08, 02568-5 #### [facility] ([id number]) [address] [place] [address] 41072 #### 91409-9 #### [facility] ([id number]) [address], [address] [place] [address] CO2 [Moles/Vol] 21 mmol/L Low 22-32 [facility] Comment on above: Performed By: #### Laura RONDON CBCA, 1987-08, 58384-5 #### [facility] ([id number]) [address] [place] [address]3432 #### 55287-9 #### [facility] ([id number]) [address], [address] [place] [address] Potassium [Moles/Vol] 4.2 mmol/L Normal 3.5-5.0 [facility] Comment on above: Performed By: #### Laura RONDON CBCA, 1987-08, 66472-3 #### [facility] ([id number]) [address] [place] [address] 67532 #### 71873-2 #### [facility] ([id number]) [facility], [address] [place] [address] Sodium [Moles/Vol] 134 mmol/L Normal 134-146 [facility] Comment on above: Performed By: #### Laura RONDON CBCA, 1987-08, 80366-1 #### [facility] ([id number]) [address] [place] [address]1693 #### 51518-9 #### [facility] ([id number]) [address] [place] [address], [address] [place] [address] Natriuretic peptide.B prohor adrianne N-Terminal [Mass/Vol]on 09-03-2023 NT Pro BNP See Below Normal [facility] Comment on above: Result Comment: NOTE TEST RESULT FLAG UNIT REF.RANGE ----- PRO B Natr Peptide 933 H pg/mL <125 Test Performed By: [facility] [address] [place] [address] Loom Setter: Charlotte Hart III #[id number] Performed By: #### Laura RONDON CBCA, 1987-08, 23197-1 #### [facility] ([id number]) [address] [place] [address] 45242 #### 96073-1 #### [facility] ([id number]) [address] [place] [address], [address] [place] [address] BLOOD UREA NITROGENon 2023 Urea nitrogen [Mass/Vol] 38 mg/dL High 5-27 [facility] Comment on above: Performed By: #### B JAMES RONDON, 1987-08, 65404-5 #### [facility] ([id number]) [address] [place] [address] 22443 #### 68244-3 #### [facility] ([id number]) [address], [address] [place] [address] CREATININEon 07-31-2023 Creatinine [Mass/Vol] 2.76 mg/dL High 0.70-1.20 [facility] Comment on above: Result Comment: METH OD TRACEABLE TO IDMS STANDARD Performed By: #### B JAMES RONDON, 1987-08, #### [facility] ([id number]) [address] [place] [address] 91556 #### 54669-6 #### [facility] ([id number]) [address] [facility], [address] [place] [address] GFR/1.73 sq M.predicted among non-blacks MDRD (S/P/Bld) [Vol rate/Area] 25 mL/min/{1.73_m2} Low >59 [facility] Comment on above: Result Comment: Reported eGFR is based on the CKD-EPI 2020 equation that does not use a race coefficient. Performed By: #### B JAMES RONDON, 1987-08, #### [facility] ([id number]) [address] [place] [address] 43471 #### 88010-3 #### [facility] ([id number]) [address], [address] [place] [address] ELECTROLYTESon 07-31-2023 Anion gap [Moles/Vol] 7 mmol/L Normal 5-15 [facility] Comment on above: Performed By: #### B JAMES RONDON, 1987-08, #### [facility] ([id number]) [address] [place] [address] 66756 #### 22569-1 #### [facility] ([id number]) [address] [place] [address], [address] [place] [address] Chloride [Moles/Vol] 104 mmol/L Normal 98-109 [facility] Comment on above: Performed By: #### JAMES Sanchez MP, 1987-08, 52688-5 #### [facility] ([id number]) [address] [place] [address] 16676 #### 18709-0 #### [facility] ([id number]) [address] [place] [address], [address] [place] [address] CO2 [Moles/Vol] 21 mmol/L Low 22-32 [facility] Comment on above: Performed By: #### JAMES Sanchez MP, 1987-08, 77146-3 #### [facility] ([id number]) [address] [place] [address] 70614 #### 97367-8 #### [facility] ([id number]) [address] [place] [address], [address] [place] [address] Potassium [Moles/Vol] 4.3 mmol/L Normal 3.5-5.0 [facility] Comment on above: Performed By: #### JAMES Sanchez MP, 1987-08, 92717-8 #### [facility] ([id number]) [address] [place] [address] 25549 #### 84261-2 #### [facility] ([id number]) [address] [place] [address], [address] [place] [address] Sodium [Moles/Vol] 132 mmol/L Low 134-146 [facility] Comment on above: Performed By: #### JAMES Sanchez MP, 1987-08, 71617-6 #### [facility] ([id number]) [address] [place] [address] 30806 #### 41130-9 #### [facility] ([id number]) [address], [address] [place] [address] Natriuretic peptide.B prohor adrianne N-Terminal [Mass/Vol]on 07-31-2023 NT Pro BNP See Below Normal [facility] Comment on above: Result Comment: NOTE TEST RESULT FLAG UNIT REF.RANGE ----- PRO B Natr Peptide 1296 H pg/mL <125 Test Performed By: [facility] [address] [place] [address] Loom Setter: Tyler Valle III, M.D. CLIA #[id number] Performed By: #### Laura RONDON CBCA, 1987-08, 42768-6 #### [facility] ([id number]) [address] [place] [address] 69467 #### 93656-5 #### [facility] ([id number]) [address] [facility], [address] [place] [address] BLOOD UREA NITROGENon 2023 Urea nitrogen [Mass/Vol] 34 mg/dL High 5-27 [facility] Comment on above: Performed By: #### Laura RONDON, CBCA, 1987-08, 64048-7 #### [facility] ([id number]) [address] [place] [address] 82106 #### 48683-7 #### [facility] ([id number]) [address], [address] [place] [address] CREATININEon 07-02-2023 Creatinine [Mass/Vol] 3.13 mg/dL High 0.70-1.20 [facility] Comment on above: Result Comment: METH OD TRACEABLE TO IDMS STANDARD Performed By: #### B JAMES RONDON, 1987-08, #### [facility] ([id number]) [address] [place] [address] 91261 #### 24843-6 #### [facility] ([id number]) [address], [address] [place] [address] GFR/1.73 sq M.predicted among non-blacks MDRD (S/P/Bld) [Vol rate/Area] 22 mL/min/{1.73_m2} Low >59 [facility] Comment on above: Result Comment: Reported eGFR is based on the CKD-EPI 2020 equation that does not use a race coefficient. Performed By: #### B JAMES RONDON, 1987-08, #### [facility] ([id number]) [address] [place] [address] 01219 #### 11991-9 #### [facility] ([id number]) [address], [address] [place] [address] ELECTROLYTESon 07-02-2023 Anion gap [Moles/Vol] 8 mmol/L Normal 5-15 [facility] Comment on above: Performed By: #### B JAMES RONDON, 1987-08, #### [facility] ([id number]) [address] [place] [address] 32455 #### 71968-1 #### [facility] ([id number]) [address], [address] [place] [address] Chloride [Moles/Vol] 106 mmol/L Normal 98-109 [facility] Comment on above: Performed By: #### B JAMES RONDON, 1987-08, 35314-6 #### [facility] ([id number]) [address] [place] [address] 98905 #### 76441-6 #### [facility] ([id number]) [address], [address] [place] [address] CO2 [Moles/Vol] 20 mmol/L Low 22-32 [facility] Comment on above: Performed By: #### SEVEN Sanchez MPA, 1987-08, 78826-5 #### [facility] ([id number]) [address] [place] [address] 67793 #### 41511-3 #### [facility] ([id number]) [address] [facility], [address] [place] [address] Potassium [Moles/Vol] 4.7 mmol/L Normal 3.5-5.0 [facility] Comment on above: Performed By: #### Laura RONDON CBCA, 1987-08, 10341-5 #### [facility] ([id number]) [address] [place] [address] 76107 #### 40064-1 #### [facility] ([id number]) [address] [facility], [address] [place] [address] Sodium [Moles/Vol] 134 mmol/L Normal 134-146 [facility] Comment on above: Performed By: #### Laura RONDON CBCA, 1987-08, 25776-3 #### [facility] ([id number]) [address] [place] [address] 95050 #### 67293-3 #### [facility] ([id number]) [address], [address] [place] [address] Natriuretic peptide.B prohor adrianne N-Terminal [Mass/Vol]on 07-02-2023 NT Pro BNP See Below Normal [facility] Comment on above: Result Comment: NOTE TEST RESULT FLAG UNIT REF.RANGE ----- PRO B Natr Peptide 413 H pg/mL <125 Test Performed By: [place] [address] Loom Setter: Tyler Valle III, M.D. CLIA #[id number] Performed By: #### JAMES Sanchez MP, 1987-08, 15412-6 #### [facility] ([id number]) [address] [place] [address] 35270 #### 19818-2 #### [facility] ([id number]) [address] [place] [address], [address] [address] BLOOD UREA NITROGENon 2023 Urea nitrogen [Mass/Vol] 33 mg/dL High 5-27 [facility] Comment on above: Performed By: #### JAMES Sanchez MP, 1987-08, 87595-0 #### [facility] ([id number]) [address] [place] [address] 50812 #### 27037-3 #### [facility] ([id number]) [address] [place] [address], [facility] [address] [place] [address] CREATININEon 06-04-2023 Creatinine [Mass/Vol] 2.37 mg/dL High 0.70-1.20 [facility] Comment on above: Result Comment: METH OD TRACEABLE TO IDMS STANDARD Performed By: #### JAMES Sanchez MP, 1987-08, 12371-7 #### [facility] ([id number]) [address] [place] [address] 06835 #### 36021-2 #### [facility] ([id number]) [address] [place] [address], [address] [place] [address] GFR/1.73 sq M.predicted among non-blacks MDRD (S/P/Bld) [Vol rate/Area] 30 mL/min/{1.73_m2} Low >59 [facility] Comment on above: Result Comment: Reported eGFR is based on the CKD-EPI 2020 equation that does not use a race coefficient. Performed By: #### B JAMES RONDON, 1987-08, 24253-6 #### [facility] ([id number]) [address] [place] [address] 23562 #### 24312-9 #### [facility] ([id number]) [address], [address] [place] [address] ELECTROLYTESon 06-04-2023 Anion gap [Moles/Vol] 7 mmol/L Normal 5-15 [facility] Comment on above: Performed By: #### B JAMES RONDON, 1987-08, #### [facility] ([id number]) [address] [place] [address] 91198 #### 88132-8 #### [facility] ([id number]) [address], [address] [place] [address] Chloride [Moles/Vol] 106 mmol/L Normal 98-109 [facility] Comment on above: Performed By: #### B JAMES RONDON, 1987-08, 14444-0 #### [facility] ([id number]) [address] [place] [address] 51511 #### 28922-6 #### [facility] ([id number]) [address], [address] [place] [address] CO2 [Moles/Vol] 20 mmol/L Low 22-32 [facility] Comment on above: Performed By: #### B JAMES RONDON, 1987-08, 03974-6 #### [facility] ([id number]) [address] [place] [address] 12133 #### 40342-3 #### [facility] ([id number]) [address] [place] [address], [address] [place] [address] Potassium [Moles/Vol] 4.6 mmol/L Normal 3.5-5.0 [facility] Comment on above: Performed By: #### JAMES Sanchez MP, 1987-08, 58694-1 #### [facility] ([id number]) [address] [place] [address] 91732 #### 49428-1 #### [facility] ([id number]) [address] [place] [address], [address] [place] [address] Sodium [Moles/Vol] 133 mmol/L Low 134-146 [facility] Comment on above: Performed By: #### JAMES Sanchez MP, 1987-08, 08587-2 #### [facility] ([id number]) [address] [place] [address] 95158 #### 40938-8 #### [facility] ([id number]) [address] [place] [address], [address] [place] [address] Natriuretic peptide.B prohor adrianne N-Terminal [Mass/Vol]on 06-04-2023 NT Pro BNP See Below Normal [facility] Comment on above: Result Comment: NOTE TEST RESULT FLAG UNIT REF.RANGE ----- PRO B Natr Peptide 526 H pg/mL <125 Test Performed By: [facility] [address] [place] [address] Loom Setter: Charlotte Hart III #[id number] Performed By: #### JAMES Sanchez MP, 1987-08, 31255-0 #### [facility] ([id number]) [address] [place] [address] [place] [address] #### 15516-5 #### [facility] ([id number]) [address] [facility], [address] [place] [address] Cult,Urineon 06-03-2023 Cult,Urine Specimen Description .VOIDED URINE [...] above: Performed By: #### U RC #### [facility] [address] [place], [place] [id number] Vice President Of Brand Management: Griffin Carrion MD [facility] [address] [place] [address] [place] [address] Vice President Of Brand Management: Jameson Aaron MD UA w/Reflex Cultureon 2023 Bilirubin, SemiQt,Ur Negative Normal NEG [facility] Comment on above: Performed By: #### U COURTNEY GUSTAFSON #### [facility] [address] [place] [address] Vice President Of Brand Management: Jameson Aaron MD Blood, Urine TRACE Abnormal NEG [facility] Comment on above: Performed By: #### U COURTNEY GUSTAFSON #### [facility] [address] [place] [address] [place] [address] Vice President Of Brand Management: Jameson Aaron MD Clarity (U) SLIGHTLY CLOUDY Abnormal CLEAR [facility] Comment on above: Performed By: #### U COURTNEY GUSTAFSON #### [facility] [address] [place], [place] [address] Vice President Of Brand Management: Jameson Aaron MD Color (U) Yellow Normal YEL [facility] Comment on above: Performed By: #### U AX, UMICAO #### [facility] [address] [place], [place] [address] Vice President Of Brand Management: Jameson Aaron MD Glucose Ql (U) 3+ mg/dL Abnormal NEG [facility] Comment on above: Performed By: #### U AX, UMICAO #### [facility] [address] [place], [place] 3[address] Vice President Of Brand Management: Jameson Aaron MD Ketones Ql (U) Negative Normal NEG [facility] Comment on above: Performed By: #### U AX, UMICAO #### [address] [place], [place] 36[address] Vice President Of Brand Management: Jameson Aaron MD Leukocyte esterase Test strip Ql (U) TRACE Abnormal NEG [facility] Comment on above: Performed By: #### U AX, UMICAO #### [address] [place], [place] 150[address]283 Vice President Of Brand Management: Jameson Aaron MD Nitrite,Ur Negative Normal [facility] Comment on above: Performed By: #### U AX, UMICAO #### [facility] [address] [place] [address] Dr[place], [place] 299[address]83 Vice President Of Brand Management: Jameson Aaron MD PH,Ur 5.5 Normal 5.0-9.0 [facility] Comment on above: Performed By: #### U AX, UMICAO #### [facility] [address] [place], [place] [address] Vice President Of Brand Management: Jameson Aaron MD Protein Ql (U) 2+ mg/dL Abnormal NEG [facility] Comment on above: Performed By: #### U AX, UMICAO #### [facility] [address] [place] [address] Dr[place], [place] 1675483 Vice President Of Brand Management: Jameson Aaron MD Spec. [place]rie,Ur 1.025 High 1.010-1.020 [facility] Comment on above: Performed By: #### U AX, UMICAO #### [facility] [address] [place] [address] Dr[place], [place] 9529583 Vice President Of Brand Management: Jameson Aaron MD Urobilinogen,Ur Normal Normal 0.0-1.0 [facility] Comment on above: Performed By: #### U AX, UMICAO #### [address] [place], [facility] Vice President Of Brand Management: Jameson Aaron MD Urinalysis,Microon 4 Bacteria 2+ Abnormal NONE [facility] Comment on above: Performed By: #### U AX, UMICAO #### [address] [place], [facility] Vice President Of Brand Management: Jameson Aaron MD Epithelial cells LM Ql (Urine sed) 0 TO [address] Comment on above: Performed By: #### U AX, UMICAO #### [address] [place], [facility] Vice President Of Brand Management: Jameson Aaron MD Epithelial, Renal 0 TO 2 Normal 0 [facility] Comment on above: Performed By: #### U AX, UMICAO #### [address] [place], [facility] Vice President Of Brand Management: Jameson Aaron MD Urine RBC's 0 TO 2 Normal 0-2 [facility] Comment on above: Performed By: #### U AX, UMICAO #### [address] [place], [place] [address] Vice President Of Brand Management: Jameson Aaron MD Urine WBC's 10 TO 20 Normal 0-5 [facility] Comment on above: Performed By: #### U AX, COURTNEY #### [facility] [address] [place], [place] [address]83 Vice President Of Brand Management: Jameson Aaron MD Yeast PRESENCE NOTED Abnormal NONE [facility] Comment on above: Performed By: #### U AX, LORIO #### [facility] [address] [place], [place] 8932[address] Vice President Of Brand Management: Jameson Aaron MD BLOOD UREA NITROGENon 2023 Urea nitrogen [Mass/Vol] 44 mg/dL High 5-27 [facility] Comment on above: Performed By: #### E LEC, 309-0, TELECOMMUNICATION OPERATOR, 87012-8 #### [facility] ([id number]) [address] [place] [address] 44861 #### 80536-9, HA1C #### [facility] ([id number]) [address] [place] [address], [address] [place] [address] CREATININEon 05-06-2023 Creatinine [Mass/Vol] 2.71 mg/dL High 0.70-1.20 [facility] Comment on above: Result Comment: METH OD TRACEABLE TO IDMS STANDARD Performed By: #### E LEC, 309-0, TELECOMMUNICATION OPERATOR, 18179-6 #### [facility] ([id number]) [address] [place] [address] 12090 #### 17648-0, HA1C #### [facility] ([id number]) [address] [facility], [address] [place] [address] GFR/1.73 sq M.predicted among non-blacks MDRD (S/P/Bld) [Vol rate/Area] 26 mL/min/{1.73_m2} Low >59 [facility] Comment on above: Result Comment: Reported eGFR is based on the CKD-EPI 2020 equation that does not use a race coefficient. Performed By: #### E LEC, 309-0, TELECOMMUNICATION OPERATOR, 94068-8 #### [facility] ([id number]) [address] [place] [address] 62733 #### 06588-7, HA1C #### [facility] ([id number]) [address] [place] [address] ELECTROLYTESon 05-06-2023 Anion gap [Moles/Vol] 11 mmol/L Normal 5-15 [facility] Comment on above: Performed By: #### E LEC, 3094-0, TELECOMMUNICATION OPERATOR, 35138-6 #### [facility] ([id number]) [address] [place] [address] 22720 #### 06567-2, HA1C #### [facility] ([id number]) [address], [address] [place] [address] Chloride [Moles/Vol] 101 mmol/L Normal 98-109 [facility] Comment on above: Performed By: #### Tiki LEC, 3094-0, TELECOMMUNICATION OPERATOR, 87662-0 #### [facility] ([id number]) [address] [place] [address] 94217 #### 73066-7, HA1C #### [facility] ([id number]) [address], [address] [place] [address] CO2 [Moles/Vol] 18 mmol/L Low 22-32 [facility] Comment on above: Performed By: #### Tiki LEC, 3094-0, TELECOMMUNICATION OPERATOR, 76966-9 #### [facility] ([id number]) [address] [place] [address] 64796 #### 50290-4, HA1C #### [facility] ([id number]) [address], [address] [place] [address] Potassium [Moles/Vol] 4.4 mmol/L Normal 3.5-5.0 [facility] Comment on above: Performed By: #### E LEC, 3094-0, TELECOMMUNICATION OPERATOR, 82549-5 #### [facility] ([id number]) [address] [place] [address] 36503 #### 19146-7, HA1C #### [facility] ([id number]) [address], [address] [place] [address] Sodium [Moles/Vol] 130 mmol/L Low 134-146 [facility] Comment on above: Performed By: #### E LEC, 3094-0, TELECOMMUNICATION OPERATOR, 84961-7 #### [facility] ([id number]) [address] [place] [address] 22903 #### 86833-3, HA1C #### [facility] ([id number]) [address], [address] [place] [address] HGB A1C (GLYCO-HGB)on 2023 Glucose [Mass/Vol] 260 mg/dL Normal [facility] Comment on above: Performed By: #### B MP, CBCA, 1987-08, 14516-3 #### [facility] ([id number]) [address] [place] [address] 83387 #### 91966-3 #### [facility] ([id number]) [address], [address] [place] [address] HbA1c (Bld) [Mass fraction] 10.7 % High 4.4-5.6 [facility] Comment on above: Result Comment: NOTE ADA Guidelines Result HgbA1c Normal : less than 5.7 % Prediabetes : 5.7 % to 6.4 % Diabetes : > 6.4 % Use with caution in patients with abnormal hemoglobin variants as the half-life of red blood cells and in vivo glycation rates are affected. Performed By: #### B MP, CBCA, 1987-08, 48908-5 #### [facility] ([id number]) [address] [place] [address] 39194 #### 42572-3 #### [facility] ([id number]) [address] [facility], [address] [place] [address] Lipid 1996 panelon 4 Cholesterol [Mass/Vol] 205 mg/dL High 150-200 [facility] Comment on above: Performed By: #### Tiki LEC, 3094-0, TELECOMMUNICATION OPERATOR, 20216-7 #### [facility] ([id number]) [address] [place] [address] 16079 #### 30091-1, HA1C #### [facility] ([id number]) [address] [facility], [address] [place] [address] Cholesterol in HDL [Mass/Vol] 35 mg/dL Low >39 [facility] Comment on above: Result Comment: HDL <40 mg/dL - High Risk HDL > or = 40mg/dL- Desirable HDL >60 mg/dL - Negative Risk Performed By: #### Tiki LEC, 3094-0, TELECOMMUNICATION OPERATOR, 12958-8 #### [facility] ([id number]) [address] [place] [address] 00887 #### 71295-8, HA1C #### [facility] ([id number]) [address], [address] [place] [address] Cholesterol in LDL [Mass/Vol] 120 mg/dL Normal <130 [facility] Comment on above: Result Comment: LDL <100 mg/dL - Desirable LDL >160 mg/dL - High Risk Performed By: #### Tiki LEC, 3094-0, TELECOMMUNICATION OPERATOR, 83729-4 #### [facility] ([id number]) [address] [place] [address] 64800 #### 68731-3, HA1C #### [facility] ([id number]) [address], [address] [place] [address] Cholesterol in VLDL [Mass/Vol] 50 mg/dL High 0-30 [facility] Comment on above: Performed By: #### E LEC, 3094-0, TELECOMMUNICATION OPERATOR, 39920-0 #### [facility] ([id number]) [address] [place] [address] 23502 #### 05877-1, HA1C #### [facility] ([id number]) [address], [address] [place] [address] CHOLESTEROL:HDL 5.9 High 1.0-5.0 [facility] Comment on above: Performed By: #### E LEC, 3094-0, TELECOMMUNICATION OPERATOR, 23369-4 #### [facility] ([id number]) [address] [place] [address] #### 77404-2, HA1C #### [facility] ([id number]) [address], [address] [place] [address] Triglyceride [Mass/Vol] 248 mg/dL High 27-150 [facility] Comment on above: Performed By: #### E LEC, 3094-0, TELECOMMUNICATION OPERATOR, 60264-3 #### [facility] ([id number]) [address] [place] [address] #### 69553-9, HA1C #### [facility] ([id number]) [address], [address] [place] [address] MICROALBUMIN - ALBUMIN:CREAT ININE URINE RATIOon 05-06-2023 ALB/CREAT RATIO 2747.0 mg/g creat High 0.0-30.0 Pr [facility] Comment on above: Performed By: #### B JAMES RONDON, 1987-08, 70373-6 #### [facility] ([id number]) [address] [place] [address] #### 40147-5 #### [facility] ([id number]) [address], [address] [place] [address] Albumin DL <= 20 mg/L (U) [Mass/Vol] 195.2 mg/dL High 0.0-1.9 [facility] Comment on above: Performed By: #### JAMES Sanchez MP, 1987-08, 46544-6 #### [facility] ([id number]) [address] [place] [address] 64705 #### 56698-7 #### [facility] ([id number]) [facility], [facility] [address] [place] [address] URINE CREAT 71.06 mg/dL Normal [facility] Comment on above: Performed By: #### JAMES Sanchez MP, 1987-08, 72471-2 #### [facility] ([id number]) [address] [place] [address] 72263 #### 12436-2 #### [facility] ([id number]) [facility], [address] [place] [address] Natriuretic peptide.B prohor adrianne N-Terminal [Mass/Vol]on 05-06-2023 NT Pro BNP See Below Normal [facility] Comment on above: Result Comment: NOTE TEST RESULT FLAG UNIT REF.RANGE ----- PRO B Natr Peptide 314 H pg/mL <125 Test Performed By: [facility] [address] [address] Loom Setter: Charlotte aHrt III #[id number] Performed By: #### B MP, CBCA, 1987-, 09539-0 #### [facility] ([id number]) [address] [place] [address] 07166 #### 95913-4 #### [facility] ([id number]) [address] [place] [address], [address] [place] [address] URINALYSISon 05-06-2023 Bilirubin Ql (U) Negative Normal NEG [facility] Comment on above: Performed By: #### U A #### [facility] ([id number]) [address] [place] [address] 88505 BLOOD/HGB Trace Abnormal NEG [facility] Comment on above: Performed By: #### U A #### [facility] ([id number]) [address] [place] [address] 84387 Color (U) YELLOW Normal YELLOW [facility] Comment on above: Performed By: #### U A #### [facility] ([id number]) [address] [place] [address] 17008 Glucose Ql (U) >1000 Abnormal NEG [facility] Comment on above: Performed By: #### U A #### [facility] ([id number]) [address] [place] [address] 83342 Ketones Ql (U) Negative Normal NEG [facility] Comment on above: Performed By: #### U A #### [facility] ([id number]) [address] [place] [address] 29628 Leukocyte esterase Test strip Ql (U) Negative Normal NEG [facility] Comment on above: Result Comment: HIGH CONCENTRATIONS OF GLUCOSE MAY DECREASE THE REACTIVITY OF THE DIPSTICK LEUKOCYTE TEST PAD. Performed By: #### U A #### [facility] ([id number]) [address] [place] [address] 00498 MUCOUS PRESENT Abnormal NONE [facility] Comment on above: Performed By: #### U A #### [facility] ([id number]) [address] [place] [address] 94860 Nitrite Ql (U) Positive Abnormal NEG [facility] Comment on above: Performed By: #### U A #### [facility] ([id number]) [address] [place] [address] 45913 pH (U) 6.0 [pH] Normal 5.0-8.5 [facility] Comment on above: Performed By: #### U A #### [facility] ([id number]) [address] [place] [address] 05689 Protein Ql (U) >300 Abnormal NEG [facility] Comment on above: Performed By: #### U A #### [facility] ([id number]) [address] [place] [address] 30300 R.B.CELLS 5 /hpf Normal 0-5 [facility] Comment on above: Performed By: #### U A #### [facility] ([id number]) [address] [place] [address] 96377 Specific gravity (U) [Rel density] 1.015 Normal 1.003-1.035 [facility] Comment on above: Performed By: #### U A #### [facility] ([id number]) [address] [place] [address] 84072 SQUAMOUS EPITHELIUM 4 /hpf Normal 0-5 [facility] Comment on above: Performed By: #### U A #### [facility] ([id number]) [address] [place] [address] 50032 TURBIDITY HAZY Abnormal CLEAR [facility] Comment on above: Performed By: #### U A #### [facility] ([id number]) [address] [place] [address] 39053 Urobilinogen Qn (U) 0.2 {Chaya'U}/dL Normal <1.1 [facility] Comment on above: Performed By: #### U A #### [facility] ([id number]) [address] [place] [address] 72379 W.B.CELLS >100 High 0-5 [facility] Comment on above: Performed By: #### U A #### [facility] ([id number]) [address] [place] [address] 79837 URINE CULTUREon 05-06-2023 Bacteria identified Cx Nom (U) SPECIMEN NOTES URINE RECEIVED WITHOUT PRESERVATIVE CULTURE RESULTS MULTIPLE SPECIES PRESENT. PROBABLE COLLECTION CONTAMINATION. SUGGEST REPEAT SPECIMEN. URINE RECEIVED WITHOUT PRESERVATIVE-DELAYS IN TRANSPORT MAY AFFECT RESULTS.INTERPRET WITH CAUTION AND CLINICAL CORRELATION IS RECOMMENDED. Normal [facility] Comment on above: Performed By: #### B JAMES RONDON, 1987-08, 07717-1 #### [facility] ([id number]) [address] [place] [address] 78979 #### 33539-6 #### [facility] ([id number]) [address] [facility] [facility], [address] [place] [address] BASIC METABOLIC PANLon 04-19 Anion gap [Moles/Vol] 6 mmol/L Normal 5-15 [facility] Comment on above: Performed By: #### B SEVEN RONDONA, 1987-08, 55458-4 #### [facility] ([id number]) [address] [place] [address] 38054 #### 29397-1 #### [facility] ([id number]) [address], [address] [place] [address] Calcium [Mass/Vol] 8.6 mg/dL Normal 8.5-10.5 [facility] Comment on above: Performed By: #### B JAMES RONDON, 1987-08, 63325-8 #### [facility] ([id number]) [address] [place] [address] 16233 #### 39757-6 #### [facility] ([id number]) [address] [place] [address], [address] [place] [address] Chloride [Moles/Vol] 101 mmol/L Normal 98-109 [facility] Comment on above: Performed By: #### B JAMES RONDON, 1987-08, #### [facility] ([id number]) [address] [place] [address] 83039 #### 86861-1 #### [facility] ([id number]) [address] [place] [address], [facility] [address] [place] [address] CO2 [Moles/Vol] 19 mmol/L Low 22-32 [facility] Comment on above: Performed By: #### JAMES Sanchez MP, 1987-08, #### [facility] ([id number]) [address] [place] [address] 45662 #### 97271-8 #### [facility] ([id number]) [address] [place] [address], [address] [place] [address] Creatinine [Mass/Vol] 2.57 mg/dL High 0.70-1.20 [facility] Comment on above: Result Comment: METH OD TRACEABLE TO IDMS STANDARD Performed By: #### JAMES Sanchez MP, 1987-08, #### [facility] ([id number]) [address] [place] [address] 96421 #### 79106-4 #### [facility] ([id number]) [facility], [address] [place] [address] GFR/1.73 sq M.predicted among non-blacks MDRD (S/P/Bld) [Vol rate/Area] 27 mL/min/{1.73_m2} Low >59 [facility] Comment on above: Result Comment: Reported eGFR is based on the CKD-EPI 2020 equation that does not use a race coefficient. Performed By: #### JAMES Sanchez MP, 1987-08, 39117-3 #### [facility] ([id number]) [address] [place] [address] 12364 #### 84154-2 #### [facility] ([id number]) 0 [facility], [address] [address] Glucose [Mass/Vol] 377 mg/dL High 65-99 [facility] Comment on above: Performed By: #### JAMES Sanchez MP, 1987-08, 42882-9 #### [facility] ([id number]) [address] [place] [address] 22822 #### 33399-6 #### [facility] ([id number]) 0 [facility], [address] [place] [address] Potassium [Moles/Vol] 4.2 mmol/L Normal 3.5-5.0 [facility] Comment on above: Performed By: #### JAMES Sanchez MP, 1987-08, 10966-4 #### [facility] ([id number]) [address] [place] [address] 69096 #### 51233-0 #### [facility] ([id number]) [address] [facility], [address] [place] [address] Sodium [Moles/Vol] 126 mmol/L Low 134-146 [facility] Comment on above: Performed By: #### JAMES Sanchez MP, 1987-08, 27964-3 #### [facility] ([id number]) [address] [place] [address] 26670 #### 19928-6 #### [facility] ([id number]) [address], [address] [place] [address] Urea nitrogen [Mass/Vol] 30 mg/dL High 5-27 [facility] Comment on above: Performed By: #### B MP, CBCA, 1987-08, 80590-0 #### [facility] ([id number]) [address] [place] [address] 50772 #### 72573-3 #### [facility] ([id number]) [address], [address] [place] [address] CBC AND AUTO DIFFon 04-19- 23 ABSOLUTE BASOPHIL 0.1 X10E9/L Normal 0.0-0.2 [facility] Comment on above: Performed By: #### B MP, CBCA, 1987-08, 74078-8 #### [facility] ([id number]) [address] [place] [address] 40243 #### 41202-3 #### [facility] ([id number]) [address], [address] [place] [address] ABSOLUTE NEUTROPHIL 8.8 X10E9/L High 1.5-6.6 [facility] Comment on above: Performed By: #### B MP, CBCA, 1987-08, 77626-6 #### [facility] ([id number]) [address] [place] [address] 61724 #### 92765-1 #### [facility] ([id number]) [address], [address] [place] [address] Basophils/100 WBC (Bld) 0.5 % Normal [facility] Comment on above: Performed By: #### B MP, CBCA, 1987-08, #### [facility] ([id number]) [address] [place] [address] 91468 #### 20865-6 #### [facility] ([id number]) [address], [address] [place] [address] Eosinophils (Bld) [#/Vol] 0.3 10*3/uL Normal 0.0-0.4 [facility] Comment on above: Performed By: #### B MP, CBCA, 1987-08, 09037-9 #### [facility] ([id number]) [address] [place] [address] 95436 #### 39220-2 #### [facility] ([id number]) [address], [address] [place] [address] Eosinophils/100 WBC (Bld) 2.6 % Normal [facility] Comment on above: Performed By: #### Laura MP, CBCA, 1987-08, 57080-2 #### [facility] ([id number]) [address] [place] [address] 30576 #### 12023-3 #### [facility] ([id number]) [address], [address] [place] [address] Erythrocyte distribution width (RBC) [Ratio] 15.5 % High 11.5-15.0 [facility] Comment on above: Performed By: #### Laura MP, CBCA, 1987-08, 51096-0 #### [facility] ([id number]) [address] [place] [address] 98376 #### 53180-7 #### [facility] ([id number]) [address], [address] [place] [address] Hematocrit (Bld) [Volume fraction] 36.8 % Low 39-49 [facility] Comment on above: Performed By: #### B MP, CBCA, 1987-08, 43970-6 #### [facility] ([id number]) [address] [place] [address] 08917 #### 28474-6 #### [facility] ([id number]) [address], [address] [place] [address] Hemoglobin (Bld) [Mass/Vol] 12.0 g/dL Low 13.0-17.0 [facility] Comment on above: Performed By: #### B MP, CBCA, 1987-08, #### [facility] ([id number]) [address] [place] [address] 08575 #### 89691-8 #### [facility] ([id number]) [address], [address] [place] [address] Lymphocytes (Bld) [#/Vol] 1.9 10*3/uL Normal 1.0-3.5 [facility] Comment on above: Performed By: #### B ALCON, CBCA, 1987-08, 93375-2 #### [facility] ([id number]) [address] [place] [address] 15562 #### 76797-6 #### [facility] ([id number]) [address], [address] [place] [address] Lymphocytes/100 WBC (Bld) 15.1 % Normal [facility] Comment on above: Performed By: #### B MP, CBCA, 1987-08, 60352-5 #### [facility] ([id number]) [address] [place] [address] 79849 #### 00864-0 #### [facility] ([id number]) [address], [address] [place] [address] MCH (RBC) [Entitic mass] 28.2 pg Normal 27-34 [facility] Comment on above: Performed By: #### B MP, CBCA, 1987-08, 50389-3 #### [facility] ([id number]) [address] [place] [address] 85394 #### 31954-6 #### [facility] ([id number]) [address], [address] [place] [address] MCHC (RBC) [Mass/Vol] 32.7 g/dL Normal 32-36 [facility] Comment on above: Performed By: #### B MP, CBCA, 1987-08, 55759-6 #### [facility] ([id number]) [address] [place] [address] 82728 #### 34011-9 #### [facility] ([id number]) [address], [address] [place] [address] MCV (RBC) [Entitic vol] 86 fL Normal 80-100 [facility] Comment on above: Performed By: #### Laura MP, CBCA, 1987-08, 06228-8 #### [facility] ([id number]) [address] [place] [address] 71055 #### 71787-1 #### [facility] ([id number]) [address], [address] [place] [address] Monocytes (Bld) [#/Vol] 1.4 10*3/uL High 0-0.9 [facility] Comment on above: Performed By: #### B MP, CBCA, 1987-08, 78190-9 #### [facility] ([id number]) [address] [place] [address] 41720 #### 07315-6 #### [facility] ([id number]) [address], [address] [place] [address] Monocytes/100 WBC (Bld) 11.2 % Normal [facility] Comment on above: Performed By: #### B MP, CBCA, 1987-08, 98290-9 #### [facility] ([id number]) [address] [place] [address] 71788 #### 22101-0 #### [facility] ([id number]) [address], [address] [place] [address] Neutrophils/100 WBC (Bld) 70.6 % Normal [facility] Comment on above: Performed By: #### B MP, CBCA, 1987-08, 92300-8 #### [facility] ([id number]) [address] [place] [address] 45002 #### 78159-9 #### [facility] ([id number]) [address], [address] [place] [address] Platelet mean volume (Bld) [Entitic vol] 7.6 fL Normal 7-12 [facility] Comment on above: Performed By: #### B MP, CBCA, 1987-08, 01238-8 #### [facility] ([id number]) [address] [place] [address] 13478 #### 63228-3 #### [facility] ([id number]) [address], [address] [place] [address] Platelets (Bld) [#/Vol] 325 10*3/uL Normal 150-450 [facility] Comment on above: Performed By: #### B MP, CBCA, 1987-08, 24703-6 #### [facility] ([id number]) [address] [place] [address] 34174 #### 35579-3 #### [facility] ([id number]) [address], [address] [place] [address] RBC COUNT 4.27 X10E12/L Normal 4.10-5.70 [facility] Comment on above: Performed By: #### B JAMES RONDON, 1987-08, #### [facility] ([id number]) [address] [place] [address] 70631 #### 70529-0 #### [facility] ([id number]) [address], [address] [place] [address] WBC (Bld) [#/Vol] 12.5 10*3/uL High 4.0-11.0 [facility] Comment on above: Performed By: #### B JAMES RONDON, 1987-08, #### [facility] ([id number]) [address] [place] [address] 99982 #### 39647-6 #### [facility] ([id number]) [address], [address] [place] [address] CRP [Mass/Vol]on 04-19-2023 C REACTIVE PROTEIN 7.8 mg/dL High 0.000-0.744 [facility] Comment on above: Performed By: #### JAMES Sanchez MP, 1987-08, #### [facility] ([id number]) [address] [place] [address] 01802 #### 01031-6 #### [facility] ([id number]) [address], [address] [place] [address] ESR Photometric method (Bld) [Velocity]on 04-19-2023 ESR, ERYTHROCYTE SEDIMENTATION RATE 115 mm/h High 0-20 [facility] Comment on above: Performed By: #### JAMES Sanchez MP, 1987-08, #### [facility] ([id number]) [address] [place] [address] 26414 #### 82227-2 #### [facility] ([id number]) [address] [place] [address], [address] [place] [address] Natriuretic peptide.B probita silver N-Terminal [Mass/Vol]on 04-19-2023 NT Pro BNP See Below Normal [facility] Comment on above: Result Comment: NOTE TEST RESULT FLAG UNIT REF.RANGE ----- PRO B Natr Peptide 587 H pg/mL <125 Test Performed By: [facility] [place] [address] [place] [address] Loom Setter: Tyler Valle III, M.D. CLIA #[id number] Performed By: #### B MP, CBCA, 1987-08, 99797-9 #### [facility] ([id number]) [address] [place] [address], [place] [address] #### 23328-7 #### [facility] ([id number]) [address] [place] [address], [address] [place] [address] Basic Metabolic Profon 02-27 Anion gap [Moles/Vol] 11 mmol/L Normal - [facility] Comment on above: Performed By: #### S ED, CRP, BMP, CDP #### [facility] [address] [place] [address] Vice President Of Brand Management: Jameson Aaron MD BUN/CRE Ratio 16 Normal - [facility] Comment on above: Performed By: #### S ED, CRP, BMP, CDP #### [facility] [address] [place] [address] Vice President Of [employer]: Jameson Aaron MD Calcium [Mass/Vol] 9.4 mg/dL Normal 8.6-10.4 [facility] Comment on above: Performed By: #### S ED, CRP, BMP, CDP #### [facility] [address] [place] [address] Vice President Of [employer]: Jameson Aaron MD Chloride [Moles/Vol] 98 mmol/L Normal 98-107 [facility] Comment on above: Performed By: #### S ED, CRP, BMP, CDP #### [facility] [address] [place] [address] Vice President Of [employer]: Jameson Aaron MD CO2 [Moles/Vol] 18 mmol/L Low 20-31 [facility] Comment on above: Performed By: #### S ED, CRP, BMP, CDP #### [facility] [address] [place] [address] Vice President Of [employer]: Jameson Aaron MD Creatinine [Mass/Vol] 2.7 mg/dL High 0.7-1.2 [facility] Comment on above: Performed By: #### S ED, CRP, BMP, CDP #### [facility] [address] [place] [address] Vice President Of [employer]: Jameson Aaron MD GFR/1.73 sq M.predicted among [...] #### S ED, CRP, BMP, CDP #### [facility] [address] [place] [address] Vice President Of [employer]: Jameson Aaron MD Glucose [Mass/Vol] 268 mg/dL High 70-99 [facility] Comment on above: Performed By: #### S ED, CRP, BMP, CDP #### [facility] [address] [place] [address] [place] [place], [place] [id number] [employer]: Jameson Aaron MD Potassium [Moles/Vol] 5.2 mmol/L Normal 3.7-5.3 [facility] Comment on above: Performed By: #### S ED, CRP, BMP, CDP #### [facility] [address] [place], [place] [address] [employer] President [employer]: Jameson Aaron MD Sodium [Moles/Vol] 127 mmol/L Low 135-144 [facility] Comment on above: Performed By: #### S ED, CRP, BMP, CDP #### [address] [place], [place] [id number] [employer] President [employer]: Jameson Aaron MD Urea nitrogen [Mass/Vol] 44 mg/dL High 8-23 [facility] Comment on above: Performed By: #### S ED, CRP, BMP, CDP #### [address] [place] [address] Vice President Of [employer]: Jameson Aaron MD C-Reactive Proteinon 023 CRP [Mass/Vol] 131.1 mg/L High 0.0-5.0 [facility] Comment on above: Performed By: #### S ED, CRP, BMP, CDP #### [facility] [address] [place] [address] [place] [place], [place] [id number] [employer] President [employer]: Jameson Aaron MD CBC with Diffon 02-27-2023 Abs. Basophil 0.06 k/uL Normal 0.00-0.20 [facility] Comment on above: Performed By: #### S ED, CRP, BMP, CDP #### [address] [place], [place] 7155383 Vice President Of [employer]: Jameson Aaron MD Abs.Imm.Granulocyte 0.11 k/uL Normal 0.00-0.30 [facility] Comment on above: Performed By: #### S ED, CRP, BMP, CDP #### [address] [place], [place] [address] Vice President Of [employer]: Jameson Aaron MD Abs.Neutrophil (Seg) 6.83 k/uL Normal 1.50-8.10 [facility] Comment on above: Performed By: #### S ED, CRP, BMP, CDP #### [address] [place], [place] [address] Vice President Of [employer]: Jameson Aaron MD Basophils/100 WBC (Bld) 1 % Normal 0-2 [facility] Comment on above: Performed By: #### S ED, CRP, BMP, CDP #### [address] [place], [place] [address] Vice President Of [employer]: Jameson Aaron MD Eosinophils (Bld) [#/Vol] 0.22 10*3/uL Normal 0.00-0.44 [facility] Comment on above: Performed By: #### S ED, CRP, BMP, CDP #### [address] [place], [place] [address] Vice President Of [employer]: Jameson Aaron MD Eosinophils/100 WBC (Bld) 2 % Normal 1-4 [facility] Comment on above: Performed By: #### S ED, CRP, BMP, CDP #### [address] [place], [place] [address] [employer] Of [employer]: Jameson Aaron MD Erythrocyte distribution width (RBC) [Ratio] 14.6 % High 11.8-14.4 [facility] Comment on above: Performed By: #### S ED, CRP, BMP, CDP #### [address] [place] [id number] Vice President Of [employer]: Jameson Aaron MD Hematocrit (Bld) [Volume fraction] 41.9 % Normal 40.7-50.3 [facility] Comment on above: Performed By: #### S ED, CRP, BMP, CDP #### [facility] [address] [place], [place] [id number] [employer] Of [employer]: Jameson Aaron MD Hemoglobin (Bld) [Mass/Vol] 13.2 g/dL Normal 13.0-17.0 [facility] Comment on above: Performed By: #### S ED, CRP, BMP, CDP #### [address] [place], [facility] Vice [employer]: Jameson Aaron MD Immature granulocytes/100 WBC (Bld) 1 % High 0 [facility] Comment on above: Performed By: #### S ED, CRP, BMP, CDP #### [address] [place], [facility] [employer]: Jameson Aaron MD Lymphocytes (Bld) [#/Vol] 1.83 10*3/uL Normal 1.10-3.70 [facility] Comment on above: Performed By: #### S ED, CRP, BMP, CDP #### [address] [place], [place] [id number] [employer]: Jameson Aaron MD Lymphocytes/100 WBC (Bld) 18 % Low 24-43 [facility] Comment on above: Performed By: #### S ED, CRP, BMP, CDP #### [address] [place], [facility] [employer]: Jameson Aaron MD MCH (RBC) [Entitic mass] 28.2 pg Normal 25.2-33.5 [facility] Comment on above: Performed By: #### S ED, CRP, BMP, CDP #### [address] [place], [place] [id number] Vice President Of Brand Management: Jameson Aaron MD MCHC (RBC) [Mass/Vol] 31.5 g/dL Normal 28.4-34.8 [facility] Comment on above: Performed By: #### S ED, CRP, BMP, CDP #### [facility] [address] [place], [facility] Vice President Of Brand Management: Jameson Aaron MD MCV (RBC) [Entitic vol] 89.5 fL Normal 82.6-102.9 [facility] Comment on above: Performed By: #### S ED, CRP, BMP, CDP #### [address] [place], [facility] Vice President Of Brand Management: Jameson Aaron MD Monocytes (Bld) [#/Vol] 1.42 10*3/uL High 0.10-1.20 [facility] Comment on above: Performed By: #### S ED, CRP, BMP, CDP #### [address] [place], [place] [address] Vice President Of Brand Management: Jameson Aaron MD Monocytes/100 WBC (Bld) 14 % High 3-12 [facility] Comment on above: Performed By: #### S ED, CRP, BMP, CDP #### [address] [place], [place] [address] Vice President Of Brand [employer]: Jameson Aaron MD Neutrophil (Seg) 64 % Normal 36-65 [facility] Comment on above: Performed By: #### S ED, CRP, BMP, CDP #### [address] [place], [place] [address] Vice President Of Brand Management: Jameson Aaron MD NRBC Automated 0.0 per 100 WBC Normal 0.0 [facility] Comment on above: Performed By: #### S ED, CRP, BMP, CDP #### [address] [place], [facility]83 Vice President Of Brand Management: Jameson Aaron MD Platelet mean volume (Bld) [Entitic vol] 9.4 fL Normal 8.1-13.5 [facility] Comment on above: Performed By: #### S ED, CRP, BMP, CDP #### [facility] [address] [place], [place] [id number] Vice President Of Brand Management: Jameson Aaron MD Platelets (Bld) [#/Vol] 266 10*3/uL Normal 138-453 [facility] Comment on above: Performed By: #### S ED, CRP, BMP, CDP #### [facility] [address] [place], [place] [id number] Vice President Of [employer]: Jameson Aaron MD RBC (Bld) [#/Vol] 4.68 10*6/uL Normal 4.21-5.77 [facility] Comment on above: Performed By: #### S ED, CRP, BMP, CDP #### [facility] [address] [place], [place] [id number] Vice President Of Brand Management: Jameson Aaron MD WBC (Bld) [#/Vol] 10.5 10*3/uL Normal 3.5-11.3 [facility] Comment on above: Performed By: #### S ED, CRP, BMP, CDP #### [facility] [address] [place], [place] [id number] Vice President Of Brand [employer]: Jameson Aaron MD Sedimentation Rateon 023 Sedimentation Rate 114 mm/Hr High 0-20 [facility] Comment on above: Performed By: #### S ED, CRP, BMP, CDP #### [facility] [address] [place], [place] [id number] Vice President Of [employer]: Jameson Aaron MD FUNGAL CULTUREon 09-21-2022 Fungus (Mycology) Culture Final report Abnormal [facility] Comment on above: Performed By: #### C XFUN ####[facility] [address] [place] [id number]. Eddie Lerner Fungus Stain Final report Normal [facility] Comment on above: Performed By: #### C XFUN ####[facility] [address] [place] [id number] Lerner Result 1 Comment Normal [facility] Comment on above: Result Comment: ANNEMARIE/ Calcofluor preparation: no fungus observed. Performed By: #### C XFUN ####[facility] [address] [place] [address]Dr. Eddie Lerner Result 1 Rosy albicans Abnormal [facility] Comment on above: Performed By: #### C XFUN ####[facility] [address] [place] [id number]. Eddie Lerner CULTURE OTHERon 08-23-2022 CULTURE OTHER Isolate 1 Enterococcus faecalis Light growth of ORGANISM 1 Enterococcus faecalis ANTIBIOTIC M.I.C RX STATUS Beta-Lactamase Neg NEG F Benzylpenicillin 0.5 S F Ampicillin <=2 S F Gentamicin High Level (synergy) SYN-R R F Streptomycin High Level (synergy) SYN-S S F Quinupristin/Dalfopristin 4 R F Linezolid 1 S F Vancomycin 1 S F Normal [facility] Comment on above: Performed By: #### O THCX ####[facility] [address] [place], [place] [address]Dr. Eddie Lerner ACID FAST SMEAR AND CXon Acid Fast Smear Negative Normal [facility] Comment on above: Performed By: #### A FB ####[facility] [address] [place], [place] [address]Dr. 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 Comment on above: Performed By: #### A FB ####[facility] [address] [place] [address]Dr. Eddie Lerner BNPon 08-20-2022 Natriuretic peptide B (Bld) [Mass/Vol] 648.0 pg/mL Normal <=900.[address] [facility] Comment on above: Performed By: #### A 1C #### [facility] [address] [place] [address] [address] Eddie Lerner CULTURE ANAEROBICon 08-21-19 CULTURE ANAEROBIC Culture Observations : NO GROWTH OF ANAEROBES AT 72 HOURS. Normal [facility] Comment on above: Performed By: #### A NACX ####[facility] [address] [place], [place] [address]Dr. Eddie Lerner GLYCOHEMOGLOBIN A1Con 2022 ADA RECOMMENDATION SEE BELOW Normal [facility] Comment on above: Result Comment: ADA RECOMMENDED LIMIT 4.0 - 6.0 ADA THERAPEUTIC TARGET < 7.0 ACTION SUGGESTED > 7.0 Performed By: #### R ENAL, LIPID, LIVER, TSH #### [facility] [address] [place] [address] [address] Eddie Lerner Glucose [Mass/Vol] 235 mg/dL Normal [facility] Comment on above: Performed By: #### R ENAL, LIPID, LIVER, TSH #### [facility] [address] [address] [address] Eddie Lerner HbA1c (Bld) [Mass fraction] 9.8 % Critically high 4.5-6.2 [facility] Comment on above: Performed By: #### R ENAL, LIPID, LIVER, TSH #### [facility] [address] [place] [address] [address] Eddie Lerner GRAM STAINon 08-20-2022 COMMENTS NO ORGANISMS OBSERVED Normal [facility] Comment on above: Performed By: #### G STAIN ####[facility] [address] [place] [address]Dr. Eddie Lerner DIPHTHEROIDS Normal [facility] Comment on above: Performed By: #### G STAIN ####[facility] [address] [place] [address]Dr. Eddie Lerner EPITHELIALS Normal [facility] Comment on above: Performed By: #### G STAIN ####[facility] [address] [place] [address]Dr. Eddie Lerner FUNGAL ELEMENTS Normal [facility] Comment on above: Performed By: #### G STAIN ####[facility] [address] [place] [address]Dr. Eddie Lerner GRAM NEG BACILLI Normal [facility] Comment on above: Performed By: #### G STAIN ####[facility] [address] [place] [address]Dr. Eddie Lerner GRAM NEG DIPPLOCOCCI Normal [facility] Comment on above: Performed By: #### G STAIN ####[facility] [address] [place], [place] [address]Xw. Eddie Lerner GRAM POS BACILLI Normal [facility] Comment on above: Performed By: #### G STAIN ####[facility] [address] [place] [id number]. Eddie Lerner GRAM POSITIVE COCCI Normal [facility] Comment on above: Performed By: #### G STAIN ####[facility] [address] [place] [id number]. Eddie Lerner GRAM STAIN SOURCE Lt Foot Bone Normal [facility] Comment on above: Performed By: #### G STAIN ####[facility] [address] [place] [address]Dr. Eddie Lerner GS_DIPTH Normal [facility] Comment on above: Performed By: #### G STAIN ####[facility] [address] [place] [id number]. Eddie Lerner WBC RARE Normal [facility] Comment on above: Performed By: #### G STAIN ####[facility] [address] [place] [id number]. Eddie Lerner LIPID PROFILEon 08-20-2022 CHOL-HDL RATIO NORM SEE BELOW Normal [facility] Comment on above: Result Comment: 3.3 - 4.4 LOW RISK 4.4 - 7.1 AVERAGE RISK 7.1 - 11.0 MODERATE RISK >11.0 HIGH RISK Performed By: #### A 1C #### [facility] [address] [place] [address] [address] Eddie Lerner Cholesterol [Mass/Vol] 137 mg/dL Normal <=200 [facility] Comment on above: Performed By: #### A 1C #### [facility] [address] [place] [address] [address] Eddie Lerner Cholesterol in HDL [Mass/Vol] 54 mg/dL Normal 40-60 [facility] Comment on above: Performed By: #### A 1C #### [facility] [address] [place] [address] [address] Eddie Lerner Cholesterol in LDL [Mass/Vol] 63.2 mg/dL Normal [facility] Comment on above: Performed By: #### A 1C #### [facility] [address] [place] [address] [address] Eddie Lerner Cholesterol.total/Ch olesterol in HDL [Mass ratio] 2.5 {ratio} Normal [facility] Comment on above: Performed By: #### A 1C #### [facility] [address] [place] [address] [address] Eddie Lerner HDL NORMAL > or = 60 mg/dl - LO W CARDIOVASCULAR RISK <40 mg/dl - HIGH CARDIOVASCULAR RISK Normal [facility] Comment on above: Performed By: #### A 1C #### [facility] [address] [place] [address] Dr. Eddie Lerner LDL CALC NORMAL SEE BELOW Normal [facility] Comment on above: Result Comment: <100 mg/dl OPTIMAL 100 - 129 mg/dl NEAR OR ABOVE OPTIMAL 130 - 159 mg/dl BORDERLINE HIGH 160 - 189 mg/dl HIGH >190 mg/dl VERY HIGH Performed By: #### A 1C #### [facility] [address] [place] [address] Dr. Eddie Lerner Triglyceride [Mass/Vol] 99 mg/dL Normal <=[address] [facility] Comment on above: Performed By: #### A 1C #### [facility] [address] [place] [address] Dr. Eddie Lerner VLDL CALC 19.8 mg/dL Normal [facility] Comment on above: Performed By: #### A 1C #### [facility] [address] [place] [address] Dr. Eddie Lerner LIVER PROFILEon 08-20-2022 Albumin [Mass/Vol] 2.8 g/dL Critically low 3.4-5.0 [facility] Comment on above: Performed By: #### A 1C #### [facility] [address] [place] [address] Dr. Eddie Lerner Albumin/Globulin [Mass ratio] 0.6 {ratio} Normal [facility] Comment on above: Performed By: #### A 1C #### [facility] [address] [place] [address] Dr. Eddie Lerner ALP [Catalytic activity/Vol] 87 U/L Normal 46-[address] [facility] Comment on above: Performed By: #### A 1C #### [facility] [address] [place] [address] Dr. Eddie Lerner ALT [Catalytic activity/Vol] 49 U/L Normal 16-[address] [facility] Comment on above: Performed By: #### A 1C #### [facility] [address] [place] [address] Dr. Eddie Lerner AST [Catalytic activity/Vol] 36 U/L Normal 15-[address] [facility] Comment on above: Performed By: #### A 1C #### [facility] [address] [place] [address] Dr. Eddie Lerner BILI, CONJUGATED 0.1 mg/dL Normal 0.0-0.[address] [facility] Comment on above: Performed By: #### A 1C #### [facility] [address] [place] [address] Dr. Eddie Lerner Bilirubin [Mass/Vol] 0.4 mg/dL Normal 0.2-1.[address] [facility] Comment on above: Performed By: #### A 1C #### [facility] [address] [place] [address] Dr. Eddie Lerner Globulin (S) [Mass/Vol] 4.4 g/dL Normal [facility] Comment on above: Performed By: #### A 1C #### [facility] [address] [place] [address] Dr. Eddie Lerenr Protein [Mass/Vol] 7.2 g/dL Normal 6.4-8.[address] [facility] Comment on above: Performed By: #### A 1C #### [facility] [address] [place] [address] Dr. Eddie Lerner POINT OF CARE GLUCOSEon 07-29 Glucose [Mass/Vol] 107 mg/dL Critically high 74-106 [facility] Comment on above: Performed By: #### P OCGLUC #### [facility] [address] [place] [address] Dr. Eddie Lerner Glucose [Mass/Vol] 108 mg/dL Critically high 74-106 [facility] Comment on above: Performed By: #### P OCGLUC ####[facility] [address] [place] [address]DrVaishali Lerner TSHon 08-20-2022 TSH 2.247 uIU/mL Normal 0.358-3.740 [facility] Comment on above: Performed By: #### A 1C #### [facility] [address] [place] [address] [address] Eddie Lerner CBC AUTO DIFFon 08-15-2022 BASO # 0.0 103/ul Normal 0.0-0.[address] [facility] Comment on above: Performed By: #### C BC ####[facility] [address] [place] [address]DrVaishali Lerner Basophils/100 WBC (Bld) 0.4 % Normal 0.2-2.[address] [facility] Comment on above: Performed By: #### C BC ####[facility] [address] [place], [place] [address]DrVaishali Lerner EO # 0.2 103/ul Normal 0.0-0.[address] [facility] Comment on above: Performed By: #### C BC ####[facility] [address] [place] [address]Dr. Eddie Lerner Eosinophils/100 WBC (Bld) 2.0 % Normal 0.9-7.[address] [facility] Comment on above: Performed By: #### C BC ####[facility] [address]wf[address] [place] [address]DrVaishali Lerner Erythrocyte distribution width (RBC) [Ratio] 14.5 % Normal 11.0-15.0 [facility] Comment on above: Performed By: #### C BC ####[facility] [address] [place], [place] [address]DrVaishali Lerner Hematocrit (Bld) [Volume fraction] 40.5 % Critically low 42.0-54.[address] [facility] Comment on above: Performed By: #### C BC ####[facility] [address] [place] [id number]. Eddie Lerner Hemoglobin (Bld) [Mass/Vol] 13.1 g/dL Critically low 14.0-18.0 [facility] Comment on above: Performed By: #### C BC ####[facility] [address]xqs[address] [place] [id number]. Eddie Lerner IG # 0.12 10e3/ul Critically high 0.00-0.03 [facility] Comment on above: Performed By: #### C BC ####[facility] Mgmcfftizt[address] [place] [id number]. Eddie Lerner IG % 1.2 % Critically high 0.0-0.5 [facility] Comment on above: Performed By: #### C BC ####[facility] [address] [place], [place] [address]Dr. Eddie Lerner LYMPH # 1.4 103/ul Normal 1.2-3.8 [facility] Comment on above: Performed By: #### C BC ####[facility] [address] [place] [address]Dr. Eddie Lerner Lymphocytes/100 WBC (Bld) 13.6 % Critically low 20.5-60.0 [facility] Comment on above: Performed By: #### C BC ####[facility] [address]rsfm[address] [place] [address]Dr. Eddie Lerner MANUAL DIFF REQ NO Normal [facility] Comment on above: Performed By: #### C BC ####[facility] [address]lc[address] [place] [id number]. Eddie Lerner MCH (RBC) [Entitic mass] 29.8 pg Normal 25.9-34.0 [facility] Comment on above: Performed By: #### C BC ####[facility] [address] [place], [place] [address]Dr. Eddie Lerner MCHC (RBC) [Mass/Vol] 32.3 g/dL Normal 29.9-35.2 [facility] Comment on above: Performed By: #### C BC ####[facility] [address] [place] [address]Lu. Eddie Lerner MCV (RBC) [Entitic vol] 92.0 fL Normal 80.0-94.0 [facility] Comment on above: Performed By: #### C BC ####[facility] [address] [place] [address]Dr. Eddie Lerner MONO # 0.5 103/ul Normal 0.3-0.8 [facility] Comment on above: Performed By: #### C BC ####[facility] [address] [place] [address]Dr. Eddie Yann Monocytes/100 WBC (Bld) 4.8 % Normal 1.7-12.0 [facility] Comment on above: Performed By: #### C BC ####[facility] [address]pcn[address] [place] [address]Dr. Eddie Lerner NEUT # 8.1 103/ul Critically high 1.4-6.5 [facility] Comment on above: Performed By: #### C BC ####[facility] Crydcmimss[address] [place] [address]Dr. Eddie Yann Neutrophils/100 WBC (Bld) 78.0 % Critically high 43.0-75.0 [facility] Comment on above: Performed By: #### C BC ####[facility] [address]xx[address] [place], [place] [address]Dr. Eddie Yann Platelet mean volume (Bld) [Entitic vol] 8.6 fL Critically low 9.5-13.5 [facility] Comment on above: Performed By: #### C BC ####[facility] [address] [place], [place] [address]Dr. Eddie Yann PLT 240 103/ul Normal 150-450 [facility] Comment on above: Performed By: #### C BC ####[facility] [address] [place], [place] [address]Dr. Dainaquincy Yann RBC 4.40 106/ul Critically low 4.70-6.10 [facility] Comment on above: Performed By: #### C BC ####[facility] [address] [place], [place] [address]Dr. Eddie Lerner WBC 10.3 103/ul Normal 4.0-11.0 [facility] Comment on above: Performed By: #### C BC ####[facility] [address] [place] [address]Dr. Eddie Lerner CRPon 08-15-2022 CRP [Mass/Vol] mg/L Normal <=1.0 [facility] Comment on above: Performed By: #### A 1C #### [facility] [address] [place] [address] [address] Eddie Lerner PROF CHEM 8 (BAS METB)on Anion gap [Moles/Vol] 14.4 mmol/L Normal [facility] Comment on above: Performed By: #### A 1C #### [facility] [address] [place] [address] [address] Eddie Lerner Calcium [Mass/Vol] 9.2 mg/dL Normal 8.5-10.1 [facility] Comment on above: Performed By: #### A 1C #### [facility] [address] [place] [address] [address] Eddie Lerner Chloride [Moles/Vol] 101 mmol/L Normal 98-107 [facility] Comment on above: Performed By: #### A 1C #### [facility] [address] [place] [address] [address] Eddie Lerner CO2 [Moles/Vol] 25.2 mmol/L Normal 21.0-32.0 [facility] Comment on above: Performed By: #### A 1C #### [facility] [address] [place] [address] [address] Eddie Lerner Creatinine [Mass/Vol] 3.07 mg/dL Critically high 0.70-1.30 [facility] Comment on above: Performed By: #### A 1C #### [facility] [address] [place] [address] [address] Eddie Lerner EGFR-AF GIBRALTARIAN 25 mL/min/1.73m2 Critically low >=60 [facility] Comment on above: Performed By: #### A 1C #### [facility] [address] [place] [address] [address] Eddie Lerner EGFR-NON AF GIBRALTARIAN 21 mL/min/1.73m2 Critically low >=[address] [facility] Comment on above: Performed By: #### A 1C #### [facility] [address] [place] [address] [address] Eddie Lerner Glucose [Mass/Vol] 415 mg/dL Critically high 74-106 [facility] Comment on above: Performed By: #### A 1C #### [facility] [address] [place] [address] [address] Eddie Lerner Potassium [Moles/Vol] 5.6 mmol/L Critically high 3.5-5.[address] [facility] Comment on above: Performed By: #### A 1C #### [facility] [address] [place] [address] [address] Eddie Lerner Sodium [Moles/Vol] 135 mmol/L Critically low 136-145 [facility] Comment on above: Performed By: #### A 1C #### [facility] [address] [place] [address] [address] Eddie Lerner Urea nitrogen [Mass/Vol] 34.0 mg/dL Critically high 7.0-18.[address] [facility] Comment on above: Performed By: #### A 1C #### [facility] [address] [place] [address] [address] Eddie Lerner Urea nitrogen/Creatinine [Mass ratio] 11.1 mg/mg Normal [facility] Comment on above: Performed By: #### A 1C #### [facility] [address] [place] [address] [address] Eddie Lerner SED RATE WESTERGRENon 2022 SED RATE 59 mm/hr Critically high <=[address] [facility] Comment on above: Performed By: #### S EDR ####[facility] [address] [place] [address]Dr. Eddie Lerner BNPon 06-06-2022 Natriuretic peptide B (Bld) [Mass/Vol] 1342.0 pg/mL Critically high <=900.[address] [facility] Comment on above: Performed By: #### B INVENTORY CONTROL ASSOCIATE ####[facility] [address] [place], [place] [address]Dr. Eddie Lerner CBC AUTO DIFFon 06-06-2022 BASO # 0.1 103/ul Normal 0.0-0.[address] [facility] Comment on above: Performed By: #### A 1C #### [facility] [address] [place] [address] [address] Eddie Lerner Basophils/100 WBC (Bld) 0.6 % Normal 0.2-2.[address] [facility] Comment on above: Performed By: #### A 1C #### [facility] [address] [place] [address] [address] Eddie Lerner EO # 0.2 103/ul Normal 0.0-0.[address] [facility] Comment on above: Performed By: #### A 1C #### [facility] [address] [place] [address] [address] Eddie Lerner Eosinophils/100 WBC (Bld) 1.8 % Normal 0.9-7.[address] [facility] Comment on above: Performed By: #### A 1C #### [facility] [address] [place] [address] [address] Eddie Lerner Erythrocyte distribution width (RBC) [Ratio] 15.2 % Critically high 11.0-15.[address] [facility] Comment on above: Performed By: #### A 1C #### [facility] [address] [place] [address] [address] Eddie Lerner Hematocrit (Bld) [Volume fraction] 39.0 % Critically low 42.0-54.[address] [facility] Comment on above: Performed By: #### A 1C #### [facility] [address] [place] [address] [address] Eddie Lerner Hemoglobin (Bld) [Mass/Vol] 12.4 g/dL Critically low 14.0-18.[address] [facility] Comment on above: Performed By: #### A 1C #### [facility] [address] [place] [address] [address] Eddie Lerner IG # 0.21 10e3/ul Critically high 0.00-0.[address] [facility] Comment on above: Performed By: #### A 1C #### [facility] [address] [place] [address] Dr. Eddie Lerner IG % 1.6 % Critically high 0.0-0.[address] [facility] Comment on above: Performed By: #### A 1C #### [facility] [address] [place] [address] Dr. Eddie Lerner LYMPH # 1.9 103/ul Normal 1.2-3.[address] [facility] Comment on above: Performed By: #### A 1C #### [facility] [address] [place] [address] Dr. Eddie Lerner Lymphocytes/100 WBC (Bld) 13.8 % Critically low 20.5-60.[address] [facility] Comment on above: Performed By: #### A 1C #### [facility] [address] [place] [address] Dr. Eddie Lerner MANUAL DIFF REQ NO Normal [facility] Comment on above: Performed By: #### A 1C #### [facility] [address] [place] [address] Dr. Eddie Lerner MCH (RBC) [Entitic mass] 27.8 pg Normal 25.9-34.[address] [facility] Comment on above: Performed By: #### A 1C #### [facility] [address] [place] [address] Dr. Eddie Lerner MCHC (RBC) [Mass/Vol] 31.8 g/dL Normal 29.9-35.2 [facility] Comment on above: Performed By: #### A 1C #### [facility] [address] [place] [address] Dr. Eddie Lerner MCV (RBC) [Entitic vol] 87.4 fL Normal 80.0-94.[address] [facility] Comment on above: Performed By: #### A 1C #### [facility] [address] [place] [address] Dr. Eddie Lerner MONO # 0.8 103/ul Normal 0.3-0.[address] [facility] Comment on above: Performed By: #### A 1C #### [facility] [address] [place] [address] [address] Eddie Lerner Monocytes/100 WBC (Bld) 5.9 % Normal 1.7-12.[address] [facility] Comment on above: Performed By: #### A 1C #### [facility] [address] [place] [address] [address] Eddie Lerner NEUT # 10.3 103/ul Critically high 1.4-6.5 [facility] Comment on above: Performed By: #### A 1C #### [facility] [address] [place] [address] [address] Eddie Lerner Neutrophils/100 WBC (Bld) 76.3 % Critically high 43.0-75.[address] [facility] Comment on above: Performed By: #### A 1C #### [facility] [address] [place] [address] Dr. Eddie Lerner Platelet mean volume (Bld) [Entitic vol] 10.2 fL Normal 9.5-13.[address] [facility] Comment on above: Performed By: #### A 1C #### [facility] [address] [place] [address] Dr. Eddie Lerner PLT 288 103/ul Normal 150-450 [facility] Comment on above: Performed By: #### A 1C #### [facility] [address] [place] [address] Dr. Eddie Lerner RBC 4.46 106/ul Critically low 4.70-6.10 [facility] Comment on above: Performed By: #### A 1C #### [facility] Laboratory [address] [place] [address] Dr. Eddie Lerner WBC 13.5 103/ul Critically high 4.0-11.0 [facility] Comment on above: Performed By: #### A 1C #### [facility] [address] [place] [address] Dr. Eddie Lerner GLYCOHEMOGLOBIN A1Con 2022 ADA RECOMMENDATION SEE BELOW Normal [facility] Comment on above: Result Comment: ADA RECOMMENDED LIMIT 4.0 - 6.0 ADA THERAPEUTIC TARGET < 7.0 ACTION SUGGESTED > 7.0 Performed By: #### A 1C #### [facility] [address] [address] [address] Eddie Lerner Glucose [Mass/Vol] 283 mg/dL Normal [facility] Comment on above: Performed By: #### A 1C #### [facility] [address] [address] [address] Eddie Lerner HbA1c (Bld) [Mass fraction] 11.5 % Critically high 4.5-6.[address] [facility] Comment on above: Performed By: #### A 1C #### [facility] [address] [place] [address] Dr. Eddie Lerner LIPID PROFILEon 06-06-2022 CHOL-HDL RATIO NORM SEE BELOW Normal [facility] Comment on above: Result Comment: 3.3 - 4.4 LOW RISK 4.4 - 7.1 AVERAGE RISK 7.1 - 11.0 MODERATE RISK >11.0 HIGH RISK Performed By: #### R ENAL, LIPID, LIVER, TSH #### [facility] [address] [address] [address] Eddie Lerner Cholesterol [Mass/Vol] 152 mg/dL Normal <=200 [facility] Comment on above: Performed By: #### R ENAL, LIPID, LIVER, TSH #### [facility] [address] [place] [address] Dr. Eddie Lerner Cholesterol in HDL [Mass/Vol] 51 mg/dL Normal 40-60 [facility] Comment on above: Performed By: #### R ENAL, LIPID, LIVER, TSH #### [facility] [address] [place] [address] Dr. Eddie Lerner Cholesterol in LDL [Mass/Vol] 61.0 mg/dL Normal [facility] Comment on above: Performed By: #### R ENAL, LIPID, LIVER, TSH #### [facility] [address] [place] [address] Dr. Eddie Lerner Cholesterol.total/Ch olesterol in HDL [Mass ratio] 3.0 {ratio} Normal [facility] Comment on above: Performed By: #### R ENAL, LIPID, LIVER, TSH #### [facility] [address] [address] [address] Eddie Lerner HDL NORMAL > or = 60 mg/dl - LO W CARDIOVASCULAR RISK <40 mg/dl - HIGH CARDIOVASCULAR RISK Normal [facility] Comment on above: Performed By: #### R ENAL, LIPID, LIVER, TSH #### [facility] [address] [address] [address] Eddie Lerner LDL CALC NORMAL SEE BELOW Normal [facility] Comment on above: Result Comment: <100 mg/dl OPTIMAL 100 - 129 mg/dl NEAR OR ABOVE OPTIMAL 130 - 159 mg/dl BORDERLINE HIGH 160 - 189 mg/dl HIGH >190 mg/dl VERY HIGH Performed By: #### R ENAL, LIPID, LIVER, TSH #### [facility] [address] [address] [address] Eddie Lerner Triglyceride [Mass/Vol] 200 mg/dL Critically high <=[address] [facility] Comment on above: Performed By: #### R ENAL, LIPID, LIVER, TSH #### [facility] [address] [address] [address] Eddie Lerner VLDL CALC 40.0 mg/dL Normal [facility] Comment on above: Performed By: #### R ENAL, LIPID, LIVER, TSH #### [facility] [address] [address] [address] Eddie Lerner LIVER PROFILEon 06-06-2022 Albumin [Mass/Vol] 2.6 g/dL Critically low 3.4-5.0 [facility] Comment on above: Performed By: #### R ENAL, LIPID, LIVER, TSH #### [facility] [address] [address] [address] Eddie Lerner Albumin/Globulin [Mass ratio] 0.6 {ratio} Normal [facility] Comment on above: Performed By: #### R ENAL, LIPID, LIVER, TSH #### [facility] [address] [address] [address] Eddie Lerner ALP [Catalytic activity/Vol] 120 U/L Critically high 46-116 [facility] Comment on above: Performed By: #### R ENJOHN, LIPID, LIVER, TSH #### [facility] [address] [place] [address] Dr. Eddie Lerner ALT [Catalytic activity/Vol] 22 U/L Normal 16-63 [facility] Comment on above: Performed By: #### R ENAL, LIPID, LIVER, TSH #### [facility] [address] [place] [address] Dr. Eddie Lerner AST [Catalytic activity/Vol] 15 U/L Normal 15-37 [facility] Comment on above: Performed By: #### R ENAL, LIPID, LIVER, TSH #### [facility] [address] [place] [address] Dr. Eddie Lerner BILI, CONJUGATED 0.1 mg/dL Normal 0.0-0.[address] [facility] Comment on above: Performed By: #### R ENAL, LIPID, LIVER, TSH #### [facility] [address] [place] [address] Dr. Eddie Lerner Bilirubin [Mass/Vol] 0.3 mg/dL Normal 0.2-1.[address] [facility] Comment on above: Performed By: #### R ENAL, LIPID, LIVER, TSH #### [facility] [address] [place] [address] Dr. Eddie Lerner Globulin (S) [Mass/Vol] 4.7 g/dL Normal [facility] Comment on above: Performed By: #### R ENAL, LIPID, LIVER, TSH #### [facility] [address] [place] [address] Dr. Eddie Lerner Protein [Mass/Vol] 7.3 g/dL Normal 6.4-8.2 [facility] Comment on above: Performed By: #### R ENAL, LIPID, LIVER, TSH #### [facility] [address] [place] [address] Dr. Eddie Lerner RENAL FUNCTION PANELon 06-06 Calcium [Mass/Vol] 9.0 mg/dL Normal 8.5-10.1 [facility] Comment on above: Performed By: #### R ENAL, LIPID, LIVER, TSH #### [facility] [address] [address] [address] Eddie Lerner Chloride [Moles/Vol] 96 mmol/L Critically low 98-[address] [facility] Comment on above: Performed By: #### R ENAL, LIPID, LIVER, TSH #### [facility] [address] [address] [address] Eddie Lerner CO2 [Moles/Vol] 21.8 mmol/L Normal 21.0-32.[address] [facility] Comment on above: Performed By: #### R ENAL, LIPID, LIVER, TSH #### [facility] [address] [address] [address] Eddie Lerner Creatinine [Mass/Vol] 2.38 mg/dL Critically high 0.70-1.[address] [facility] Comment on above: Performed By: #### R ENAL, LIPID, LIVER, TSH #### [facility] [address] [place] [address] Dr. Eddie Lerner EGFR-AF GIBRALTARIAN 34 mL/min/1.73m2 Critically low >=[address] [facility] Comment on above: Performed By: #### R ENAL, LIPID, LIVER, TSH #### [facility] [address] [address] [address] Eddie Lerner EGFR-NON AF GIBRALTARIAN 28 mL/min/1.73m2 Critically low >=[address] [facility] Comment on above: Performed By: #### R ENAL, LIPID, LIVER, TSH #### [facility] [address] [place] [address] Dr. Eddie Lerner Glucose [Mass/Vol] 523 mg/dL Critically high 74-106 [facility] Comment on above: Performed By: #### R ENAL, LIPID, LIVER, TSH #### [facility] [address] [place] [address] Dr. Eddie Lerner Phosphate [Mass/Vol] 4.1 mg/dL Normal 2.6-4.[address] [facility] Comment on above: Performed By: #### R ENAL, LIPID, LIVER, TSH #### [facility] [address] [place] [address] Dr. Eddie Lerner Potassium [Moles/Vol] 4.6 mmol/L Normal 3.5-5.[address] [facility] Comment on above: Performed By: #### R ENAL, LIPID, LIVER, TSH #### [facility] [address] [place] [address] Dr. Eddie Lerner Sodium [Moles/Vol] 128 mmol/L Critically low 136-145 [facility] Comment on above: Performed By: #### R ENAL, LIPID, LIVER, TSH #### [facility] [address] [place] [address] Dr. Eddie Lerner Urea nitrogen [Mass/Vol] 28.0 mg/dL Critically high 7.0-18.[address] [facility] Comment on above: Performed By: #### R ENJOHN, LIPID, LIVER, TSH #### [facility] [address] [place] [address] Dr. Eddie Lerner TSHon 06-06-2022 TSH 1.308 uIU/mL Normal 0.358-3.[address] [facility] Comment on above: Performed By: #### R ENJOHN, LIPID, LIVER, TSH #### [facility] [address] [place] [address] Dr. Eddie Lerner UA RANDOMon 06-06-2022 Bilirubin Ql (U) Negative Normal NEGATIVE [facility] Comment on above: Performed By: #### U A #### [facility] [address] [place] [address] Dr. Eddie Lerner Clarity (U) CLEAR Normal CLEAR [facility] Comment on above: Performed By: #### U A #### [facility] [address] [place] [address] Dr. Eddie Lerner Color (U) LT. YELLOW Normal YELLOW [facility] Comment on above: Performed By: #### U A #### [facility] [address] [place] [address] Dr. Eddie Lerner Glucose Ql (U) >1000 Abnormal NEGATIVE [facility] Comment on above: Performed By: #### U A #### [facility] [address] [place] [address] Dr. Eddie Lerner Hemoglobin Ql (U) TRACE-INTACT Abnormal NEGATIVE [facility] Comment on above: Performed By: #### U A #### [facility] [address] [place] [address] Dr. Eddie Lerner Ketones Ql (U) Negative Normal NEGATIVE [facility] Comment on above: Performed By: #### U A #### [facility] [address] [place] [address] Dr. Eddie Lerner LEUKOCYTES Negative Normal NEGATIVE [facility] Comment on above: Performed By: #### U A #### [facility] [address] [place] [address] Dr. Eddie Lerner Nitrite Ql (U) Negative Normal NEGATIVE [facility] Comment on above: Performed By: #### U A #### [facility] [address] [place] [address] Dr. Eddie Lerner pH (U) 6.5 [pH] Normal 5-[address] [facility] Comment on above: Performed By: #### U A #### [facility] [address] [place] [address] Dr. Eddie Lerner SPEC GRAVITY 1.010 Normal 1.005-<=1.[address] [facility] Comment on above: Performed By: #### U A #### [facility] [address] [place] [address] Dr. Eddie Lerner UA PROTEIN 100 mg/dl Abnormal NEGATIVE/ TRACE [facility] Comment on above: Performed By: #### U A #### [facility] [address] [place] [address] Dr. Eddie Lerner Urobilinogen Qn (U) 0.2 {Chaya'U}/dL Normal 0.2 - 1. [address] [facility] Comment on above: Performed By: #### U A #### [facility] [address] [place] [address] Dr. Eddie Lerner VITAMIN D 25 OHon 06-06-2022 VIT D 25-OH 13.9 ng/mL Normal [facility] Comment on above: Performed By: #### V ITAD ####[facility] [address] [place], [place] [id number]. Eddie Lerner VIT D RANGES SEE BELOW Normal [facility] Comment on above: Result Comment: <20 ng/mL Vit D deficient 20 - <30 ng/mL Vit D insufficient 30 - 100 ng/mL Vit D sufficient >100 ng/mL Potential Toxicity Performed By: #### V ITAD ####[facility] [address] [address]. Eddie Lerner ACID FAST SMEAR AND CXon Acid Fast Culture Negative Normal [facility] Comment on above: Result Comment: No a wendy fast bacilli isolated after 6 weeks. Performed By: #### A FB ####[facility] [address] [place], [place] [address]Dr. Eddie Lerner Acid Fast Smear Negative Normal [facility] Comment on above: Performed By: #### A FB ####[facility] [address] [place], [place] [address]Dr. 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 Comment on above: Performed By: #### A FB ####[facility] [address] [address]. Eddie Lerner FUNGAL CULTUREon 01-19-2022 Fungus (Mycology) Culture Final report Normal [facility] Comment on above: Performed By: #### R YUMIKO, LIPID, LIVER, TSH #### [facility] [address] [address] [address] Eddie Lerner Fungus Stain Final report Normal [facility] Comment on above: Performed By: #### R ENJOHN, LIPID, LIVER, TSH #### [facility] [address] [address] [address] Eddie Lerner Result 1 Comment Normal [facility] Comment on above: Result Comment: ANNEMARIE/ Calcofluor preparation: no fungus observed. Performed By: #### R ENJOHN, LIPID, LIVER, TSH #### [facility] [address] [address] [address] Eddie Lerner Result Comment: No y east or mold isolated after 4 weeks. POINT OF CARE GLUCOSEon - Glucose [Mass/Vol] 177 mg/dL Critically high 74-106 [facility] Comment on above: Performed By: #### A 1C #### [facility] [address] [address] [address] Eddie Lerner Glucose [Mass/Vol] 200 mg/dL Critically high 74-106 [facility] Comment on above: Performed By: #### P OCGLUC ####[facility] [address] [place], [place] [address]VrDr. Eddie Lerner Covid-19 PCR (CVDTBH)on 12-28 SARS-CoV-2 (COVID-19) RNA SUDHA+probe Ql (Unsp spec) Not detected Normal NOT DETECTED [facility] Comment on above: Result Comment: This test is not yet approved or cleared by the [place] FDA. When there are no FDA-approved or cleared tests available, and other criteria are met, FDA can make tests available under an emergency access mechanism called an Emergency Use Authorization (EUA). The EUA for this test is supported by the Independent Trader of Health and Human Service's (HHS's) declaration [...] SARS-CoV-2. Performed By: #### A 1C #### [facility] [address] [address] [address] Eddie Lerner PROF CHEM 8 (BAS METB)on Anion gap [Moles/Vol] 15.0 mmol/L Normal [facility] Comment on above: Performed By: #### R ENAL, LIPID, LIVER, TSH #### [facility] [address] [place], [place] [address] Dr. Eddie Lerner Calcium [Mass/Vol] 9.3 mg/dL Normal 8.5-10.1 [facility] Comment on above: Performed By: #### R ENAL, LIPID, LIVER, TSH #### [facility] [address] [address] [address] Eddie Lerner Chloride [Moles/Vol] 105 mmol/L Normal 98-[address] [facility] Comment on above: Performed By: #### R ENAL, LIPID, LIVER, TSH #### [facility] [address] [place] [address] Dr. Eddie Lerner CO2 [Moles/Vol] 22.1 mmol/L Normal 21.0-32.[address] [facility] Comment on above: Performed By: #### R ENAL, LIPID, LIVER, TSH #### [facility] [address] [place] [address] Dr. Eddie Lerner Creatinine [Mass/Vol] 2.29 mg/dL Critically high 0.70-1.[address] [facility] Comment on above: Performed By: #### R ENAL, LIPID, LIVER, TSH #### [facility] [address] [place] [address] Dr. Eddie Lerner EGFR-AF GIBRALTARIAN 35 mL/min/1.73m2 Critically low >=[address] [facility] Comment on above: Performed By: #### R ENAL, LIPID, LIVER, TSH #### [facility] [address] [place] [address] Dr. Eddie Lerner EGFR-NON AF GIBRALTARIAN 29 mL/min/1.73m2 Critically low >=[address] [facility] Comment on above: Performed By: #### R ENAL, LIPID, LIVER, TSH #### [facility] [address] [place] [address] Dr. Eddie Lerner Glucose [Mass/Vol] 115 mg/dL Critically high 74-106 [facility] Comment on above: Performed By: #### R ENAL, LIPID, LIVER, TSH #### [facility] [address] [place] [address] Dr. Eddie Lerner Potassium [Moles/Vol] 5.1 mmol/L Normal 3.5-5.[address] [facility] Comment on above: Performed By: #### R ENAL, LIPID, LIVER, TSH #### [facility] [address] [address] [address] Eddie Lerner Sodium [Moles/Vol] 137 mmol/L Normal 136-145 [facility] Comment on above: Performed By: #### R ENAL, LIPID, LIVER, TSH #### [facility] [address] [address] [address] Eddie Lerner Urea nitrogen [Mass/Vol] 26.0 mg/dL Critically high 7.0-18.0 [facility] Comment on above: Performed By: #### R ENAL, LIPID, LIVER, TSH #### [facility] [address] [address] [address] Eddie Lerner Urea nitrogen/Creatinine [Mass ratio] 11.4 mg/mg Normal [facility] Comment on above: Performed By: #### R ENAL, LIPID, LIVER, TSH #### [facility] [address] [address] [address] Eddie Lerner TISSUE CULTUREon 01-08-2022 Anaerobic Culture, Extended Incubation Final report Normal [facility] Comment on above: Performed By: #### C XTISSU ####[facility] [address] [address]DrVaishali Lerner Result 1 Comment Normal [facility] Comment on above: Result Comment: Diph theroids, not Corynebacterium jeikeium Light growth Susceptibility not normally performed on this organism. Performed By: #### C XTISSU ####[facility] [address] [address]Dr. Eddie Lerner Result Comment: No a naerobes recovered. Tissue Culture Final report Abnormal [facility] Comment on above: Performed By: #### C XTISSU ####[facility] [address] [address]Dr. Eddie Lerner POINT OF CARE GLUCOSEon 08-2 Glucose [Mass/Vol] 89 mg/dL Normal 74-[address] [facility] Comment on above: Performed By: #### R ENAL, LIPID, LIVER, TSH #### [facility] [address] [address] [address] Eddie Lerner Glucose [Mass/Vol] 85 mg/dL Normal 74-106 [facility] Comment on above: Performed By: #### P OCGLUC ####[facility] [address] [address]. Eddie Lerner GRAM STAINon 12-21-2021 COMMENTS NO ORGANISMS OBSERVED Normal [facility] Comment on above: Performed By: #### R ENAL, LIPID, LIVER, TSH #### [facility] [address] [address] [address] Eddie Lerner DIPHTHEROIDS Normal [facility] Comment on above: Performed By: #### R ENAL, LIPID, LIVER, TSH #### [facility] [address] [address] [address] Eddie Lerner EPITHELIALS Normal [facility] Comment on above: Performed By: #### R ENAL, LIPID, LIVER, TSH #### [facility] [address] [address] [address] Eddie Lerner FUNGAL ELEMENTS Normal [facility] Comment on above: Performed By: #### R ENAL, LIPID, LIVER, TSH #### [facility] [address] [address] [address] Eddie Lerner GRAM NEG BACILLI Normal [facility] Comment on above: Performed By: #### R ENAL, LIPID, LIVER, TSH #### [facility] [address] [address] [address] Eddie PRINGLE NEG DIPPLOCOCCI Normal [facility] Comment on above: Performed By: #### R ENAL, LIPID, LIVER, TSH #### [facility] [address] [address] [address] Eddie Lerner GRAM POS BACILLI Normal [facility] Comment on above: Performed By: #### R ENAL, LIPID, LIVER, TSH #### [facility] [address] [address] [address] Eddie Lerner GRAM POSITIVE COCCI Normal [facility] Comment on above: Performed By: #### R ENAL, LIPID, LIVER, TSH #### [facility] [address] [address] [address] Eddie Lerner GRAM STAIN SOURCE Lt 1st Metatarsal Bone Normal [facility] Comment on above: Performed By: #### R ENAL, LIPID, LIVER, TSH #### [facility] [address] [address] [address] Eddie Lerner GS_DIPTH Normal [facility] Comment on above: Performed By: #### R ENAL, LIPID, LIVER, TSH #### [facility] [address] [address] [address] Eddie Lerner WBC RARE Normal [facility] Comment on above: Performed By: #### R ENAL, LIPID, LIVER, TSH #### [facility] [address] [address] [address] Eddie Lerner POINT OF CARE GLUCOSEon 11-28 Glucose [Mass/Vol] 148 mg/dL Critically high 74-106 [facility] Comment on above: Performed By: #### A 1C #### [facility] [address] [address] [address] Eddie Lerner Glucose [Mass/Vol] 100 mg/dL Normal 74-[address] [facility] Comment on above: Performed By: #### P OCGLUC ####[facility] [address] [address]Dr. Eddie Lerner Glucose [Mass/Vol] 85 mg/dL Normal 74-[address] [facility] Comment on above: Performed By: #### P OCGLUC ####[facility] [address] [address]Dr. Eddie Lerner Glucose [Mass/Vol] 83 mg/dL Normal 74-[address] [facility] Comment on above: Performed By: #### R ENAL, LIPID, LIVER, TSH #### [facility] [address] [address] [address] Eddie Lerner Covid-19 PCR (CVDTB)on 11-28 SARS-CoV-2 (COVID-19) RNA SUDHA+probe Ql (Unsp spec) Not detected Normal NOT DETECTED [facility] Comment on above: Result Comment: This test is not yet approved or cleared by the [place] FDA. When there are no FDA-approved or cleared tests available, and other criteria are met, FDA can make tests available under an emergency access mechanism called an Emergency Use Authorization (EUA). The EUA for this test is supported by the Independent Trader of Health and Human Service's (HHS's) declaration [...] with SARS-CoV-2. Performed By: #### C VDTBH ####[facility] [address] [address]Dr. Eddie Lerner PROF CHEM 8 (BAS METB)on Anion gap [Moles/Vol] 11.5 mmol/L Normal [facility] Comment on above: Performed By: #### R ENAL, LIPID, LIVER, TSH #### [facility] [address] [address] [address] Eddie Lerner Calcium [Mass/Vol] 9.0 mg/dL Normal 8.5-10.1 [facility] Comment on above: Performed By: #### R ENAL, LIPID, LIVER, TSH #### [facility] [address] [address] [address] Eddie Lerner Chloride [Moles/Vol] 102 mmol/L Normal 98-107 [facility] Comment on above: Performed By: #### R ENAL, LIPID, LIVER, TSH #### [facility] [address] [address] [address] Eddie Lerner CO2 [Moles/Vol] 24.8 mmol/L Normal 21.0-32.[address] [facility] Comment on above: Performed By: #### R ENAL, LIPID, LIVER, TSH #### [facility] [address] [address] [address] Eddie Lerner Creatinine [Mass/Vol] 2.19 mg/dL Critically high 0.70-1.[address] [facility] Comment on above: Performed By: #### R ENAL, LIPID, LIVER, TSH #### [facility] [address] [place] [address] Dr. Eddie Lerner EGFR-AF GIBRALTARIAN 37 mL/min/1.73m2 Critically low >=[address] [facility] Comment on above: Performed By: #### R ENAL, LIPID, LIVER, TSH #### [facility] [address] [address] [address] Eddie Lerner EGFR-NON AF GIBRALTARIAN 31 mL/min/1.73m2 Critically low >=[address] [facility] Comment on above: Performed By: #### R ENAL, LIPID, LIVER, TSH #### [facility] [address] [place] [address] Dr. Eddie Lerner Glucose [Mass/Vol] 330 mg/dL Critically high 74-106 [facility] Comment on above: Performed By: #### R ENAL, LIPID, LIVER, TSH #### [facility] [address] [address] [address] Eddie Lerner Potassium [Moles/Vol] 5.3 mmol/L Critically high 3.5-5.[address] [facility] Comment on above: Performed By: #### R ENAL, LIPID, LIVER, TSH #### [facility] [address] [address] [address] Eddie Lerner Sodium [Moles/Vol] 133 mmol/L Critically low 136-145 [facility] Comment on above: Performed By: #### R ENAL, LIPID, LIVER, TSH #### [facility] [address] [address] [address] Eddie Lerner Urea nitrogen [Mass/Vol] 25.0 mg/dL Critically high 7.0-18.[address] [facility] Comment on above: Performed By: #### R ENAL, LIPID, LIVER, TSH #### [facility] [address] [place] [address] Dr. Eddie Lerner Urea nitrogen/Creatinine [Mass ratio] 11.4 mg/mg Normal [facility] Comment on above: Performed By: #### R ENAL, LIPID, LIVER, TSH #### [facility] [address] [place], [place] [address] Dr. Eddie eLrner Albumin [Mass/volume] in Ser um or Plasmaon 08-25-2020 Albumin [Mass/Vol] 2.0 g/dL 3.2-5.5 [facility] [place] Basophils Auto (Bld) [#/Vol] on 08-25-2020 Basophils (Bld) [#/Vol] 0.0 10*3/uL 0.0-0.2 [facility] Basophils/100 WBC Auto (Bld) on 08-25-2020 Basophils/100 WBC (Bld) 0.1 % [facility] Blood anisocytosis detection on 08-25-2020 Anisocytosis Ql (Bld) Slight [facility] Blood hemoglobin measurement (mass/volume)on 08-25-2020 Hemoglobin (Bld) [Mass/Vol] 10.1 g/dL 13.0-17.0 [facility] Blood leukocytes automated c ount (number/volume)on 08-25-2020 WBC (Bld) [#/Vol] 12.6 10*3/uL 4.5-11.[address] [facility] Blood polychromasia detectio n by light microscopyon 08-25-2020 Polychromasia LM Ql (Bld) Slight [facility] Creatinine and Glomerular fi ltration rate.predicted panel (S/P/Bld)on 08-25-2020 Creatinine [Mass/Vol] 4.06 mg/dL 0.64-1.27 [facility] Eosinophils Auto (Bld) [#/Vo l]on 08-25-2020 Eosinophils (Bld) [#/Vol] 0.0 10*3/uL 0.0-0.45 [facility] Eosinophils/100 WBC Auto (Bl d)on 08-25-2020 Eosinophils/100 WBC (Bld) 0.1 % [facility] Erythrocyte distribution wid th Auto (RBC) [Ratio]on 08-25-2020 Erythrocyte distribution width (RBC) [Ratio] 16.6 % 12.0-14.8 [facility] Estimated glomerular filtrat ion rate (GFR) non- Americanon 08-25-2020 GFR/1.73 sq M.predicted among non-blacks MDRD (S/P/Bld) [Vol rate/Area] 15 mL/Min [facility] Glucose Glucometer (BldC) [M ass/Vol]on 08-25-2020 Glucose [Mass/Vol] 122 mg/dL [facility] [place] Comment on above: Random Glucose Refer ence Range is dependent on time and content of last meal. Glucose of more than 200 mg/dL in a nonstressed, ambulatory subject supports the diagnosis of Diabetes Mellitus. Hematocrit Auto (Bld) [Volum e fraction]on 08-25-2020 Hematocrit (Bld) [Volume fraction] 31.7 % 38.8-50.0 [facility] Laboratory - Hematology and Cell countson 08-25-2020 Nucleated RBC/100 WBC (Bld) [Ratio] 0.2 % 0-0.5 [facility] Lymphocytes Auto (Bld) [#/Vo l]on 08-25-2020 Lymphocytes (Bld) [#/Vol] 1.1 10*3/uL 1.00-4.8 [facility] Lymphocytes/100 WBC Auto (Bl d)on 08-25-2020 Lymphocytes/100 WBC (Bld) 8.9 % [facility] MCH Auto (RBC) [Entitic mass ]on 08-25-2020 MCH (RBC) [Entitic mass] 26.2 pg 27.5-35.2 [facility] MCHC Auto (RBC) [Mass/Vol]on 08-25-2020 MCHC (RBC) [Mass/Vol] 31.9 g/dL 32.5-35.6 [facility] MCV Auto (RBC) [Entitic vol] on 08-25-2020 MCV (RBC) [Entitic vol] 82.3 fL 83.5-101 [facility] Monocytes Auto (Bld) [#/Vol] on 08-25-2020 Monocytes (Bld) [#/Vol] 1.2 10*3/uL 0.0-0.8 [facility] Monocytes/100 WBC Auto (Bld) on 08-25-2020 Monocytes/100 WBC (Bld) 9.6 % [facility] Neutrophils Auto (Bld) [#/Vo l]on 08-25-2020 Neutrophils (Bld) [#/Vol] 10.2 10*3/uL 1.8-7.7 [facility] Neutrophils/100 WBC Auto (Bl d)on 08-25-2020 Neutrophils/100 WBC (Bld) 81.3 % [facility] No Panel Informationon 08-25 Bedside Glucose Comment Glu2: cleaned meter [facility] Estimated GFR () 18 mL/Min [facility] Comment on above: GFR estimated refere nce range: According to KDOQI guidelines, <60 ml/min/1.73m2 is sufficient to diagnose a patient with chronic kidney disease. Pharmacy Creatinine Clearance (Chem 31.84 [facility] Platelet Estimate Normal Normal [facility] Platelet Morphology Comment Normal Normal [facility] Phosphate [Mass/volume] in S miki or Plasmaon 08-25-2020 Phosphate [Mass/Vol] 5.3 mg/dL 2.5-4.6 [facility] Platelet mean volume Auto (B ld) [Entitic vol]on 08-25-2020 Platelet mean volume (Bld) [Entitic vol] 7.1 fL 6.6-10.1 [facility] Platelets Auto (Bld) [#/Vol] on 08-25-2020 Platelets (Bld) [#/Vol] 388 10*3/uL 150-450 [facility] RBC Auto (Bld) [#/Vol]on RBC (Bld) [#/Vol] 3.85 10*6/uL 3.90-5.[address] [facility] RBC morphologyon 08-25-2020 RBC morphology finding Nom (Bld) N/A [facility] Serum or plasma calcium joel urement (mass/volume)on 08-25-2020 Calcium [Mass/Vol] 8.7 mg/dL 8.2-10.2 [facility] [place] Serum or plasma chloride faraz surement (moles/volume)on 08-25-2020 Chloride [Moles/Vol] 99 mmol/L 95-114 [facility] Serum or plasma glucose joel urement (mass/volume)on 08-25-2020 Glucose [Mass/Vol] 113 mg/dL 70-100 [facility] [place] Comment on above: ADA recommended refe rence rangeRandom Glucose Reference Range is dependent on time and content of last meal. Glucose of more than 200 mg/dL in a nonstressed, ambulatory subject supports the diagnosis of Diabetes Mellitus. Serum or plasma potassium me asurement (moles/volume)on 08-25-2020 Potassium [Moles/Vol] 4.6 mmol/L 3.5-5.1 [facility] Serum or plasma sodium measu rement (moles/volume)on 08-25-2020 Sodium [Moles/Vol] 135 mmol/L 136-146 [facility] [place] Serum or plasma total carbon dioxide measurement (moles/volume)on 08-25-2020 CO2 [Moles/Vol] 26.2 mmol/L 22.0-30.0 [facility] Serum or plasma urea nitroge n measurement (mass/volume)on 08-25-2020 Urea nitrogen [Mass/Vol] 75 mg/dL 9-23 [facility] Erythrocyte basophilic stipp ling detectionon 08-24-2020 Basophilic stippling LM Ql (Bld) Slight [facility] Laboratory - Hematology and Cell countson 08-24-2020 Band form neutrophils/100 WBC (Bld) 1 % 0-5 [facility] Lymphocytes/100 WBC Auto (Bl d)on 08-24-2020 Lymphocytes/100 WBC (Bld) 6 % 18-42 [facility] Metamyelocytes/100 WBC Manua l cnt (Bld)on 08-24-2020 Metamyelocytes/100 WBC (Bld) 1 % 0-0 [facility] Monocytes/100 WBC Manual cnt (Bld)on 08-24-2020 Monocytes/100 WBC (Bld) 4 % 2-11 [facility] Myelocytes/100 WBC Manual cn t (Bld)on 08-24-2020 Myelocytes/100 WBC (Bld) 1 % 0-0 [facility] No Panel Informationon 08-24 Rouleau Slight [facility] Segmented neutrophils/100 WB C Manual cnt (Bld)on 08-24-2020 Segmented neutrophils/100 WBC (Bld) 87 % 50-70 [facility] No Panel Informationon 08-23 Bedside Glucose #[address]/rn [facility] Bedside Glucose #3 Comment Cleaned meter [facility] Serum nuclear antibody titer on 08-23-2020 Nuclear Ab (S) [Titer] Negative [facility] Comment on above: Negative <1:80 Borde rline 1:80 Positive >1:80Performed at: [facility] [address] [id number] Director: Mata Brian PhD, Phone: [phone] Serum or plasma rheumatoid f actor measurement (units/volume)on 08-23-2020 Rheumatoid factor Qn 20.6 [IU]/mL [facility] Comment on above: Performed at: [facility] [address] [id number] Director: Mata Brian PhD, Phone: [phone] CT biopsyon 08-22-2020 Transferrin [Mass/Vol] 104 mg/dL 180-380 [facility] Ferritin [Mass/volume] in Se rum or Plasmaon 08-22-2020 Ferritin [Mass/Vol] 334.8 ng/mL 23.9-336.2 [facility] Iron [Mass/volume] in Serum or Plasmaon 08-22-2020 Iron [Mass/Vol] 17 ug/dL 40-160 [facility] Iron binding capacity [Mass/ volume] in Serum or Plasmaon 08-22-2020 Iron binding capacity [Mass/Vol] 146 ug/dL 255-450 [facility] Iron saturation [Mass Fracti on] in Serum or Plasmaon 08-22-2020 Iron saturation [Mass fraction] 11.0 % 20-50 [facility] Creatine kinase [Enzymatic a ctivity/volume] in Serum or Plasmaon 08-21-2020 CK [Catalytic activity/Vol] 45 U/L 22-269 [facility] No Panel Informationon 08-21 Dohle Bodies Slight [facility] Serum or plasma cardiac trop onin I measurement (mass/volume)on 08-21-2020 Troponin I.cardiac [Mass/Vol] ng/mL 0-0.02 [facility] Comment on above: HÉCTOR [place] Cut off value > or equal to 0.03 ng/mL in conjunction with clinical conditions of myocardial infarction.([email or web address]) Serum or plasma creatine kin ase MB (CKMB)/total creatine kinase (CK) ratio by calculaon 08-21-2020 CK.MB Calc [Catalytic fraction] 5.1 % 0.00-2.50 [facility] Serum or plasma creatine kin ase MB measurement (mass/volume)on 08-21-2020 CK.MB [Mass/Vol] 2.3 ng/mL 0.6-6.3 [facility] Erythrocyte sedimentation ra te by Photometric methodon 08-20-2020 ESR Photometric method (Bld) [Velocity] 108 mm/hr 0-19 [facility] Serum or plasma C reactive p rotein measurement (mass/volume)on 08-20-2020 CRP [Mass/Vol] 19.4 mg/dL 0.0-1.0 [facility] ABO and Rh group post transf usion reaction Nom (Bld)on 08-19-2020 Microscopic observation Gram stain Nom (Unsp spec) [facility] Glucose mean value [Mass/vol ume] in Blood Estimated from glycated hemoglobinon 08-19-2020 Average glucose Estimated from glycated hemoglobin (Bld) [Mass/Vol] 298 mg/dL [facility] Hemoglobin A1c percentageon 08-19-2020 HbA1c (Bld) [Mass fraction] 12.0 % 4.3-5.6 [facility] Comment on above: Increased risk for d iabetes: 5.7 - 6.4diabetes: >6.4glycemic control for adults with diabetes: <7.0 Laboratory - Chemistry and C hemistry - challengeon 08-19-2020 Magnesium [Mass/Vol] 2.0 mg/dL 1.6-2.6 [facility] No Panel Informationon 08-19 25-Hydroxy Vitamin D Total 24.6 ng/mL 30-100 [facility] Comment on above: VITAMIN D STATUS [...] Coag (PPP) [Time] 36.9 s 25.1-36.5 [facility] Albumin [Mass/volume] in Ser um or Plasmaon 08-18-2020 Albumin [Mass/Vol] 2.7 g/dL 3.2-5.5 [facility] [place] Bacterial blood cultureon Bacteria identified Cx Nom (Bld) NO GROWTH 5 DAYS [facility] Basophils Auto (Bld) [#/Vol] on 08-18-2020 Basophils (Bld) [#/Vol] 0.0 10*3/uL 0.0-0.2 [facility] Basophils/100 WBC Auto (Bld) on 08-18-2020 Basophils/100 WBC (Bld) 0.3 % [facility] Beta-hydroxybutyric acid faraz surementon 08-18-2020 Beta hydroxybutyrate [Mass/Vol] 0.44 mmol/L 0.02-0.27 [facility] Blood hemoglobin measurement (mass/volume)on 08-18-2020 Hemoglobin (Bld) [Mass/Vol] 11.8 g/dL 13.0-17.0 [facility] Blood leukocytes automated c ount (number/volume)on 08-18-2020 WBC (Bld) [#/Vol] 15.3 10*3/uL 4.5-11.[address] [facility] COVID-19 Detected/Not Detect edon 08-18-2020 SARS-CoV-2 (COVID-19) RNA SUDHA+non-probe Ql (Nph) Not detected Not Detecte [facility] Comment on above: This is a duplicate RP2.1 COVID (PCR) result to be used for statistical tracking purpose only. COVID-19 SOFIAon 08-18-2020 SARS-CoV+SARS-CoV-2 (COVID-19) Ag IA.rapid Ql (Resp) Negative Negative [facility] Comment on above: This is a duplicate Ayah SARS Antigen (AGUSTINA) result to be used for statistical tracking purpose only. Creatinine and Glomerular fi ltration rate.predicted panel (S/P/Bld)on 08-18-2020 Creatinine [Mass/Vol] 3.04 mg/dL 0.64-1.27 [facility] Eosinophils Auto (Bld) [#/Vo l]on 08-18-2020 Eosinophils (Bld) [#/Vol] 0.5 10*3/uL 0.0-0.45 [facility] Eosinophils/100 WBC Auto (Bl d)on 08-18-2020 Eosinophils/100 WBC (Bld) 3.4 % [facility] Erythrocyte distribution wid th Auto (RBC) [Ratio]on 08-18-2020 Erythrocyte distribution width (RBC) [Ratio] 16.3 % 12.0-14.8 [facility] Estimated glomerular filtrat ion rate (GFR) non- Americanon 08-18-2020 GFR/1.73 sq M.predicted among non-blacks MDRD (S/P/Bld) [Vol rate/Area] 21 mL/Min [facility] Globulin Calc (S) [Mass/Vol] on 08-18-2020 Globulin (S) [Mass/Vol] 4.4 g/dL [facility] Glucose Glucometer (BldC) [M ass/Vol]on 08-18-2020 Glucose [Mass/Vol] 388 mg/dL [facility] [place] Comment on above: Random Glucose Refer ence Range is dependent on time and content of last meal. Glucose of more than 200 mg/dL in a nonstressed, ambulatory subject supports the diagnosis of Diabetes Mellitus. Hematocrit Auto (Bld) [Volum e fraction]on 08-18-2020 Hematocrit (Bld) [Volume fraction] 36.1 % 38.8-50.0 [facility] Laboratory - Chemistry and C hemistry - challengeon 08-18-2020 CO2 [Moles/Vol] 25.7 mmol/L 24.0-29.0 [facility] HCO3 (Bld) [Moles/Vol] 24.3 mmol/L 23.0-29.0 [facility] Magnesium [Mass/Vol] 2.2 mg/dL 1.6-2.6 [facility] Natriuretic peptide B (Bld) [Mass/Vol] 48.0 pg/mL 5-100 [facility] Laboratory - Coagulationon 0 08-18-2020 PT Coag (PPP) [Time] 11.7 s 9.0-12.9 [facility] Laboratory - Hematology and Cell countson 08-18-2020 Nucleated RBC/100 WBC (Bld) [Ratio] 0.1 % 0-0.5 [facility] Lymphocytes Auto (Bld) [#/Vo l]on 08-18-2020 Lymphocytes (Bld) [#/Vol] 0.9 10*3/uL 1.00-4.8 [facility] Lymphocytes/100 WBC Auto (Bl d)on 08-18-2020 Lymphocytes/100 WBC (Bld) 6.1 % [facility] MCH Auto (RBC) [Entitic mass ]on 08-18-2020 MCH (RBC) [Entitic mass] 27.2 pg 27.5-35.2 [facility] MCHC Auto (RBC) [Mass/Vol]on 08-18-2020 MCHC (RBC) [Mass/Vol] 32.6 g/dL 32.5-35.6 [facility] MCV Auto (RBC) [Entitic vol] on 08-18-2020 MCV (RBC) [Entitic vol] 83.5 fL 83.5-101 [facility] Monocytes Auto (Bld) [#/Vol] on 08-18-2020 Monocytes (Bld) [#/Vol] 1.5 10*3/uL 0.0-0.8 [facility] Monocytes/100 WBC Auto (Bld) on 08-18-2020 Monocytes/100 WBC (Bld) 10.1 % [facility] Neutrophils Auto (Bld) [#/Vo l]on 08-18-2020 Neutrophils (Bld) [#/Vol] 12.3 10*3/uL 1.8-7.7 [facility] Neutrophils/100 WBC Auto (Bl d)on 08-18-2020 Neutrophils/100 WBC (Bld) 80.1 % [facility] No Panel Informationon 08-18 Respiratory Panel (PCR) [facility] Blood Gas Critical Value See comment [facility] Comment on above: Critical Value fonseca d on: 08/18/2020 at 17:44 Blood Gas Sample Site Venous [facility] FiO2 21 % [facility] Venous Blood Base Excess -1.5 mmol/L -3.0-3.0 [facility] Venous Blood Oxygen Content 4.1 mmol/L 6.6-9.7 [facility] Venous Blood Oxygen Saturation 53.3 % 73.0-76.0 [facility] Venous Blood Partial Pressure CO2 45.2 mm[Hg] 38.0-50.0 [facility] Venous Blood Partial Pressure O2 24.4 mm[Hg] 35.0-45.0 [facility] Venous Blood pH 7.35 7.32-7.43 [facility] Estimated GFR () 26 mL/Min [facility] Comment on above: GFR estimated refere nce range: According to KDOQI guidelines, <60 ml/min/1.73m2 is sufficient to diagnose a patient with chronic kidney disease. Pharmacy Creatinine Clearance (Chem 38.57 [facility] Platelet mean volume Auto (B ld) [Entitic vol]on 08-18-2020 Platelet mean volume (Bld) [Entitic vol] 7.3 fL 6.6-10.1 [facility] Platelet poor plasma interna tional normalized ratio (INR) by coagulation assay (relaton 08-18-2020 INR Coag (PPP) [Relative time] 1.0 {INR} [facility] Comment on above: INR Therapeutic Rang [...] Platelets (Bld) [#/Vol] 249 10*3/uL 150-450 [facility] Protein [Mass/volume] in Ser um or Plasmaon 08-18-2020 Protein [Mass/Vol] 7.1 g/dL 6.1-7.9 [facility] [place] RBC Auto (Bld) [#/Vol]on RBC (Bld) [#/Vol] 4.32 10*6/uL 3.90-5.[address] [facility] Serum or plasma alanine gomez otransferase measurement without P-5'-P (enzymatic activion 08-18-2020 ALT No additional P-5'-P [Catalytic activity/Vol] 13 U/L 10-60 [facility] Serum or plasma albumin/glob ulin mass ratioon 08-18-2020 Albumin/Globulin [Mass ratio] 0.6 {ratio} [facility] Serum or plasma alkaline kayode sphatase measurement (enzymatic activity/volume)on 08-18-2020 ALP [Catalytic activity/Vol] 88 U/L 32-92 [facility] Serum or plasma aspartate am inotransferase measurement (enzymatic activity/volume)on 08-18-2020 AST [Catalytic activity/Vol] 16 U/L 10-42 [facility] Serum or plasma calcium joel urement (mass/volume)on 08-18-2020 Calcium [Mass/Vol] 8.9 mg/dL 8.2-10.2 [facility] [place] Serum or plasma cardiac trop onin I measurement (mass/volume)on 08-18-2020 Troponin I.cardiac [Mass/Vol] ng/mL 0-0.02 [facility] Comment on above: HÉCTOR [place] Cut off value > or equal to 0.03 ng/mL in conjunction with clinical conditions of myocardial infarction.([email or web address]) Serum or plasma chloride faraz surement (moles/volume)on 08-18-2020 Chloride [Moles/Vol] 95 mmol/L 95-114 [facility] Serum or plasma glucose joel urement (mass/volume)on 08-18-2020 Glucose [Mass/Vol] 512 mg/dL 70-100 [facility] [place] Comment on above: Results calledat 165 9 on 08/18/20 ADA recommended reference rangeRandom Glucose Reference Range is dependent on time and content of last meal. Glucose of more than 200 mg/dL in a nonstressed, ambulatory subject supports the diagnosis of Diabetes Mellitus. Serum or plasma potassium me asurement (moles/volume)on 08-18-2020 Potassium [Moles/Vol] 4.2 mmol/L 3.5-5.1 [facility] Serum or plasma sodium measu rement (moles/volume)on 08-18-2020 Sodium [Moles/Vol] 128 mmol/L 136-146 [facility] [place] Serum or plasma total biliru bin measurement (mass/volume)on 08-18-2020 Bilirubin [Mass/Vol] 0.7 mg/dL 0.3-1.2 [facility] Serum or plasma total carbon dioxide measurement (moles/volume)on 08-18-2020 CO2 [Moles/Vol] 22.6 mmol/L 22.0-30.0 [facility] Serum or plasma urea nitroge n measurement (mass/volume)on 08-18-2020 Urea nitrogen [Mass/Vol] 27 mg/dL 01-19 [facility] CBC COMPLETE BLOOD COUNTon 0 07-22-2020 Erythrocyte distribution width (RBC) [Ratio] 15.0 % Normal 11.5-15.0 [facility] Comment on above: Order Comment: No: D o not add to previous draw Performed By: #### [id number] #### [facility] [address] [facility]. [address] Hematocrit (Bld) [Volume fraction] 32.4 % Low 39.0-50.0 [facility] Comment on above: Order Comment: No: D o not add to previous draw Performed By: #### [id number] #### [facility] [address] [place] [address], [facility] Hemoglobin (Bld) [Mass/Vol] 9.5 g/dL Low 13.0-17.0 [facility] Comment on above: Order Comment: No: D o not add to previous draw Performed By: #### [id number] #### [facility] [address] [place] [id number], [facility] MCH (RBC) [Entitic mass] 26.7 pg Low 27.0-33.0 [facility] Comment on above: Order Comment: No: D o not add to previous draw Performed By: #### [id number] #### [facility] [address] [place] [address], [facility] MCHC (RBC) [Mass/Vol] 29.3 g/dL Low 32.0-35.0 [facility] Comment on above: Order Comment: No: D o not add to previous draw Performed By: #### [id number] #### [facility] [address] [place] [id number], [facility] MCV (RBC) [Entitic vol] 91.0 fL Normal 82.0-98.0 [facility] Comment on above: Order Comment: No: D o not add to previous draw Performed By: #### [id number] #### [facility] [address] [place] [id number], [facility] Nucleated RBC/100 WBC (Bld) [Ratio] 0 % Normal 0-0 [facility] Comment on above: Order Comment: No: D o not add to previous draw Performed By: #### [id number] #### [facility] [address] [facility] [place] [id number], [facility] PLAT CNT 276 10*3/uL Normal 150-400 [facility] Comment on above: Order Comment: No: D o not add to previous draw Performed By: #### [id number] #### [facility] [address] [facility] [place] [id number], [facility] RBC (Bld) [#/Vol] 3.56 10*6/uL Low 4.20-5.70 [facility] Comment on above: Order Comment: No: D o not add to previous draw Performed By: #### [id number] #### [facility] [address] [place] [address], [facility] WBC (Bld) [#/Vol] 8.61 10*3/uL Normal 4.00-10.60 [facility] Comment on above: Order Comment: No: D o not add to previous draw Performed By: #### [id number] #### [facility] [address] [place] [address], [facility] COMP METABOLIC PANELon 07-22 Albumin [Mass/Vol] 2.7 g/dL Low 3.5-5.7 [facility] Comment on above: Order Comment: No: D o not add to previous draw Performed By: #### [id number] #### [facility] [address] [place] [address], [facility] ALKALINE PHOSPH 70 IU/L Normal 34-104 [facility] Comment on above: Order Comment: No: D o not add to previous draw Performed By: #### [id number] #### [facility] [address] [place] [address], [facility] ALT [Catalytic activity/Vol] 4 U/L Low 7-52 [facility] Comment on above: Order Comment: No: D o not add to previous draw Performed By: #### [id number] #### [facility] [address] [place] [address], [facility] AST [Catalytic activity/Vol] 15 U/L Normal 13-39 [facility] Comment on above: Order Comment: No: D o not add to previous draw Performed By: #### [id number] #### [facility] [address] [place] [address], [place] Bilirubin [Mass/Vol] 0.2 mg/dL Low 0.3-1.0 [facility] Comment on above: Order Comment: No: D o not add to previous draw Performed By: #### [id number] #### [facility] [address] [place] [address], [place] Calcium [Mass/Vol] 8.9 mg/dL Normal 8.6-10.3 [facility] Comment on above: Order Comment: No: D o not add to previous draw Performed By: #### [id number] #### [facility] [address] [place] [address], [place] Chloride [Moles/Vol] 109 mmol/L High 98-107 [facility] Comment on above: Order Comment: No: D o not add to previous draw Performed By: #### [id number] #### [facility] [address] [place] [address], [place] CO2 [Moles/Vol] 24 mmol/L Normal 21-31 [facility] Comment on above: Order Comment: No: D o not add to previous draw Performed By: #### [id number] #### [facility] [address] [place] [address], [place] Creatinine [Mass/Vol] 3.39 mg/dL High 0.70-1.30 [facility] Comment on above: Order Comment: No: D o not add to previous draw Performed By: #### [id number] #### [facility] [address] [place] [address], [facility] eGFR- 23 ml/min/1.73sq m Abnormal >60 [facility] Comment on above: Order Comment: No: D o not add to previous draw Performed By: #### [id number] #### [facility] [address] [place] [address], [place] eGFR- non- 19 ml/min/1.73sq m Abnormal >60 [facility] Comment on above: Order Comment: No: D o not add to previous draw Performed By: #### [id number] #### [facility] [address] [place] [address], [place] Glucose [Mass/Vol] 90 mg/dL Normal 70-100 [facility] Comment on above: Order Comment: No: D o not add to previous draw Performed By: #### [id number] #### [facility] [address] [place] [address], [place] Potassium [Moles/Vol] 4.4 mmol/L Normal 3.5-5.1 [facility] Comment on above: Order Comment: No: D o not add to previous draw Performed By: #### [id number] #### [facility] [address] [place] [address], [place] Protein [Mass/Vol] 5.9 g/dL Low 6.0-8.3 [facility] Comment on above: Order Comment: No: D o not add to previous draw Performed By: #### [id number] #### [facility] [address] [place] [address], [place] Sodium [Moles/Vol] 140 mmol/L Normal 136-145 [facility] [facility] Comment on above: Order Comment: No: D o not add to previous draw Performed By: #### 8 [id number] #### [facility] [address] [place] [address], [place] Urea nitrogen [Mass/Vol] 35 mg/dL High 7-25 [facility] Comment on above: Order Comment: No: D o not add to previous draw Performed By: #### 8 [id number] #### [facility] [address] [place] [address], [place] POC GLUCOSE LABon 07-22-2020 Glucose [Mass/Vol] 192 mg/dL High 70-100 [facility] Comment on above: Performed By: #### 8 [id number] #### [facility] [address] [place] [address], [place] Glucose [Mass/Vol] 95 mg/dL Normal 70-100 [facility] Comment on above: Performed By: #### 5 7307, 73681 #### [facility] [address] [place] [address], [place] Glucose [Mass/Vol] 123 mg/dL High 70-100 [facility] Comment on above: Performed By: #### 8 [id number] ####[facility] [place] [address], [facility] ARTERIAL BLOOD GAS WITH ICAo n 07-21-2020 BASE EXCESS -2 mmol/L Normal -2-3 [facility] Comment on above: Performed By: #### 8 [id number] #### [facility] [address] [place] [address], [facility] [employer] FOCUS Normal [facility] Comment on above: Performed By: #### 8 [id number] #### [facility] [address] [place] [address], [facility] HCO3 (Bld) [Moles/Vol] 24 mmol/L Normal 21-28 [facility] Comment on above: Performed By: #### 8 [id number] #### [facility] [address] [place] [address], [facility] IONIZED CALCIUM 1.25 mmol/L Normal 1.13-1.32 [facility] Comment on above: Performed By: #### 8 [id number] #### [facility] [address] [place] [address], [facility] LPM 4.0 LPM Normal [facility] Comment on above: Performed By: #### 8 [id number] #### [facility] [address] [place] [address], [place] MODALITY BIPAP Normal [facility] Comment on above: Performed By: #### 8 [id number] #### [facility] [address] [place] [address], [place] Oxygen (Bld) [Partial pressure] 91 mm[Hg] Normal 83-108 [facility] Comment on above: Performed By: #### 8 [id number] #### [facility] [address] [place] [address], [place] Oxygen saturation in Blood 95.9 % Normal 94.0-97.0 [facility] Comment on above: Performed By: #### 8 [id number] #### [facility] [address] [place] [address], [facility] PCO2 47 mmHg High 35-45 [facility] Comment on above: Performed By: #### 8 [id number] #### [facility] [address] [place] [address], [facility] PEEP 8.0 CMH20 Normal [facility] Comment on above: Performed By: #### 8 [id number] #### [facility] [address] [place] [address], [facility] pH (Bld) 7.32 [pH] Low 7.35-7.45 [facility] Comment on above: Performed By: #### 8 [id number] #### [facility] [address] [place] [address], [facility] PRESSURE SUPPORT 16 Normal [facility] Comment on above: Performed By: #### 8 [id number] #### [facility] [address] [place] [address], [facility] BASE EXCESS -3 mmol/L Low -2-3 [facility] Comment on above: Performed By: #### 3 0318 #### [facility] [address] [place] [address], [facility] [employer] NASAL CANNULA Normal [facility] Comment on above: Performed By: #### 3 0318 #### [facility] [address] [place] [address], [facility] HCO3 (Bld) [Moles/Vol] 25 mmol/L Normal 21-28 [facility] Comment on above: Performed By: #### 3 0318 #### [facility] [address] [place] [address], [facility] IONIZED CALCIUM 1.26 mmol/L Normal 1.13-1.32 [facility] Comment on above: Performed By: #### 3 0318 #### [facility] [address] [place] [address], [place] LPM 2.0 LPM Normal [facility] Comment on above: Performed By: #### 3 8 #### [facility] [address] [place] [address], [place] Oxygen (Bld) [Partial pressure] 92 mm[Hg] Normal 83-108 [facility] Comment on above: Performed By: #### 3 8 #### [facility] [address] [place] [address], [facility] Oxygen saturation in Blood 95.7 % Normal 94.0-97.0 [facility] Comment on above: Performed By: #### 3 8 #### [facility] [address] [place] [address], [facility] PCO2 54 mmHg High 35-45 [facility] Comment on above: Performed By: #### 3 8 #### [facility] [address] [place] [address], [place] pH (Bld) 7.27 [pH] Low 7.35-7.45 [facility] Comment on above: Performed By: #### 3 8 #### [facility] [address] [place] [address], [facility] BASIC METABOLIC PANELon 06-28 Calcium [Mass/Vol] 9.0 mg/dL Normal 8.6-10.3 [facility] Comment on above: Order Comment: No: D o not add to previous drawPt not in room rn will return when back. Performed By: #### 3 1944 #### [facility] [address] [place] [address], [place] Chloride [Moles/Vol] 106 mmol/L Normal 98-107 [facility] Comment on above: Order Comment: No: D o not add to previous drawPt not in room rn will return when back. Performed By: #### 3 1943 #### [facility] [address] [place] [address], [facility] CO2 [Moles/Vol] 25 mmol/L Normal 21-31 [facility] Comment on above: Order Comment: No: D o not add to previous drawPt not in room rn will return when back. Performed By: #### 3 1943 #### [facility] [address] [place] [address], [facility] Creatinine [Mass/Vol] 3.75 mg/dL High 0.70-1.30 [facility] Comment on above: Order Comment: No: D o not add to previous drawPt not in room rn will return when back. Performed By: #### 3 1943 #### [facility] [address] [place] [address], [facility] eGFR- 20 ml/min/1.73sq m Abnormal >60 [facility] Comment on above: Order Comment: No: D o not add to previous drawPt not in room rn will return when back. Performed By: #### 3 1943 #### [facility] [address] [place] [address], [facility] eGFR- non- 17 ml/min/1.73sq m Abnormal >60 [facility] Comment on above: Order Comment: No: D o not add to previous drawPt not in room rn will return when back. Performed By: #### 3 1943 #### [facility] [address] [place] [address], [place] Glucose [Mass/Vol] 132 mg/dL High 70-100 [facility] Comment on above: Order Comment: No: D o not add to previous drawPt not in room rn will return when back. Performed By: #### 3 1943 #### [facility] [address] [place] [address], [place] Potassium [Moles/Vol] 5.0 mmol/L Normal 3.5-5.1 [facility] Comment on above: Order Comment: No: D o not add to previous drawPt not in room rn will return when back. Performed By: #### 3 1943 #### [facility] [address] [place] [address], [facility] Sodium [Moles/Vol] 138 mmol/L Normal 136-145 [facility] Comment on above: Order Comment: No: D o not add to previous drawPt not in room rn will return when back. Performed By: #### 3 1943 #### [facility] [address] [place] [address], [facility] Urea nitrogen [Mass/Vol] 37 mg/dL High 7-25 [facility] Comment on above: Order Comment: No: D o not add to previous drawPt not in room rn will return when back. Performed By: #### 3 1943 #### [facility] [address] CBC COMPLETE BLOOD COUNTon 0 07-21-2020 Erythrocyte distribution width (RBC) [Ratio] 15.0 % Normal 11.5-15.0 [facility] Comment on above: Order Comment: No: D o not add to previous drawPt not in room rn will return when back. Performed By: #### 8 [id number] #### [facility] [address] [place] [address], [facility] Hematocrit (Bld) [Volume fraction] 33.9 % Low 39.0-50.0 [facility] Comment on above: Order Comment: No: D o not add to previous drawPt not in room rn will return when back. Performed By: #### 8 [id number] #### [facility] [address] [place] [id number], [facility] Hemoglobin (Bld) [Mass/Vol] 9.9 g/dL Low 13.0-17.0 [facility] Comment on above: Order Comment: No: D o not add to previous drawPt not in room rn will return when back. Performed By: #### 8 [id number] #### [facility] [address] [facility] [place] [address], [facility] MCH (RBC) [Entitic mass] 26.9 pg Low 27.0-33.0 [facility] Comment on above: Order Comment: No: D o not add to previous drawPt not in room rn will return when back. Performed By: #### 8 [id number] #### [facility] [address] [facility] [place] [address], [facility] MCHC (RBC) [Mass/Vol] 29.2 g/dL Low 32.0-35.0 [facility] Comment on above: Order Comment: No: D o not add to previous drawPt not in room rn will return when back. Performed By: #### 8 [id number] #### [facility] [address] [facility]. [address] MCV (RBC) [Entitic vol] 92.1 fL Normal 82.0-98.0 [facility] Comment on above: Order Comment: No: D o not add to previous drawPt not in room rn will return when back. Performed By: #### 8 5499 #### [facility] [address] Nucleated RBC/100 WBC (Bld) [Ratio] 0 % Normal 0-0 [facility] Comment on above: Order Comment: No: D o not add to previous drawPt not in room rn will return when back. Performed By: #### 8 [id number] #### [facility] [address] [facility] [place] [address], [facility] PLAT CNT 288 10*3/uL Normal 150-400 [facility] Comment on above: Order Comment: No: D o not add to previous drawPt not in room rn will return when back. Performed By: #### 8 [id number] #### [facility] [address] [place] [address], [facility] RBC (Bld) [#/Vol] 3.68 10*6/uL Low 4.20-5.70 [facility] Comment on above: Order Comment: No: D o not add to previous drawPt not in room rn will return when back. Performed By: #### 8 5499 #### [address] WBC (Bld) [#/Vol] 9.51 10*3/uL Normal 4.00-10.60 [facility] Comment on above: Order Comment: No: D o not add to previous drawPt not in room rn will return when back. Performed By: #### 8 [id number] #### [address] CHEST WO CONTRASTon 07-21 CT CHEST WO CONTRAST [facility] Department of Radiology [address] [place] [id number] Patient Name: RASHARD LYMAN : 1960 Sex: M Age: Race: White Pt. Location: [address] [place] [address] Patient Status: I Ordered Date: 07/21/2020 6:00:00 [...] pneumonia. Electronically signed: Manuel Saldaña. Transcribed by: [email or web address], User Resident: Electronically Signed by: MANEUL SALDAÑA @ 07/21/2020 08:38 AM Normal [facility] Comment on above: Order Comment: Left Peural Effusion POC GLUCOSE LABon 07-21-2020 Glucose [Mass/Vol] 134 mg/dL High 70-100 [facility] Comment on above: Performed By: #### 5 0103 #### [facility] [address] [place] [address], [facility] Glucose [Mass/Vol] 88 mg/dL Normal 70-100 [facility] Comment on above: Performed By: #### 8 5499 #### [facility] [address] [place] [address], [place] Glucose [Mass/Vol] 110 mg/dL High 70-100 [facility] Comment on above: Performed By: #### 8 5499 #### [facility] [address] [place] [address], [place] Glucose [Mass/Vol] 118 mg/dL High 70-100 [facility] Comment on above: Performed By: #### 5 7307, 11814 #### [facility] [address] [place] [address], [place] Glucose [Mass/Vol] 137 mg/dL High 70-100 [facility] Comment on above: Performed By: #### 5 7307, 26805 #### [facility] [address] [place] [address], [place] BASIC METABOLIC PANELon 03-2 Calcium [Mass/Vol] 8.4 mg/dL Low 8.6-10.3 [facility] Comment on above: Order Comment: No: D o not add to previous draw Performed By: #### 8 5499 #### [facility] [address] [place] [address], [place] Chloride [Moles/Vol] 107 mmol/L Normal 98-107 [facility] Comment on above: Order Comment: No: D o not add to previous draw Performed By: #### 8 5499 #### [facility] [address] [place] [address], [place] CO2 [Moles/Vol] 23 mmol/L Normal 21-31 [facility] Comment on above: Order Comment: No: D o not add to previous draw Performed By: #### 8 5499 #### [facility] [address] [place] [address], [place] Creatinine [Mass/Vol] 3.95 mg/dL High 0.70-1.30 [facility] Comment on above: Order Comment: No: D o not add to previous draw Performed By: #### 8 5499 #### [facility] [address] [place] [address], [place] eGFR- 19 ml/min/1.73sq m Abnormal >60 [facility] Comment on above: Order Comment: No: D o not add to previous draw Performed By: #### 8 5499 #### [facility] [address] [place] [address], [place] eGFR- non- 16 ml/min/1.73sq m Abnormal >60 [facility] Comment on above: Order Comment: No: D o not add to previous draw Performed By: #### 8 5499 #### [facility] [address] [place] [address], [place] Glucose [Mass/Vol] 110 mg/dL High 70-100 [facility] Comment on above: Order Comment: No: D o not add to previous draw Performed By: #### 8 5499 #### [facility] [address] [place] [address], [place] Potassium [Moles/Vol] 4.9 mmol/L Normal 3.5-5.1 [facility] Comment on above: Order Comment: No: D o not add to previous draw Performed By: #### 8 5499 #### [facility] [address] [place] [address], [place] Sodium [Moles/Vol] 137 mmol/L Normal 136-145 [facility] Comment on above: Order Comment: No: D o not add to previous draw Performed By: #### 8 5499 #### [facility] [address] [place] [address], [place] Urea nitrogen [Mass/Vol] 37 mg/dL High 7-25 [facility] Comment on above: Order Comment: No: D o not add to previous draw Performed By: #### 8 5499 #### [facility] [address] [place] [address], [facility] CBC W/DIFFon 07-20-2020 ABS IMM GRANS 0.1 10*3/uL Normal 0.0-0.2 [facility] Comment on above: Order Comment: No: D o not add to previous draw Performed By: #### 8 [id number] #### [facility] [address] [facility] [place] [address], [facility] ABS NEUTROPHILS 5.9 10*3/uL Normal 1.6-7.6 [facility] Comment on above: Order Comment: No: D o not add to previous draw Performed By: #### 8 [id number] #### [facility] [address] [facility] [place] [address], [facility] Basophils (Bld) [#/Vol] 0.1 10*3/uL Normal 0.0-0.2 [facility] Comment on above: Order Comment: No: D o not add to previous draw Performed By: #### 8 [id number] #### [facility] [address] [facility] [place] [address], [facility] Basophils/100 WBC (Bld) 1.0 % Normal 0.0-1.0 [facility] Comment on above: Order Comment: No: D o not add to previous draw Performed By: #### 8 [id number] #### [facility] [address] [facility] [place] [address], [facility] Eosinophils (Bld) [#/Vol] 0.4 10*3/uL Normal 0.0-0.5 [facility] Comment on above: Order Comment: No: D o not add to previous draw Performed By: #### 8 [id number] #### [facility] [address] [facility] [place] [address], [facility] Eosinophils/100 WBC (Bld) 5.1 % Normal 0.0-6.0 [facility] Comment on above: Order Comment: No: D o not add to previous draw Performed By: #### 8 [id number] #### [facility] [address] [place] [address], [facility] Erythrocyte distribution width (RBC) [Ratio] 15.4 % High 11.5-15.0 [facility] Comment on above: Order Comment: No: D o not add to previous draw Performed By: #### 8 [id number] #### [facility] [address] [place] [address], [facility] Hematocrit (Bld) [Volume fraction] 35.7 % Low 39.0-50.0 [facility] Comment on above: Order Comment: No: D o not add to previous draw Performed By: #### 8 [id number] #### [facility] [address] [place] [address], [facility] Hemoglobin (Bld) [Mass/Vol] 10.3 g/dL Low 13.0-17.0 [facility] Comment on above: Order Comment: No: D o not add to previous draw Performed By: #### 8 [id number] #### [facility] [address] [place] [id number], [facility] IMM PLATELET FRAC 0.4 % Low 0.8-6.3 [facility] Comment on above: Order Comment: No: D o not add to previous draw Performed By: #### 8 [id number] #### [facility] [address] [place] [address], [facility] IMMATURE GRANS 1.1 % High 0.0-1.0 [facility] Comment on above: Order Comment: No: D o not add to previous draw Performed By: #### 8 [id number] #### [facility] [address] [place] [id number], [facility] Lymphocytes (Bld) [#/Vol] 0.8 10*3/uL Low 1.2-4.0 [facility] Comment on above: Order Comment: No: D o not add to previous draw Performed By: #### 8 [id number] #### [facility] [address] Lymphocytes/100 WBC (Bld) 9.3 % Low 20.0-45.0 [facility] Comment on above: Order Comment: No: D o not add to previous draw Performed By: #### 8 [id number] #### [facility] [address] [facility] [place] [address], [facility] MCH (RBC) [Entitic mass] 27.4 pg Normal 27.0-33.0 [facility] Comment on above: Order Comment: No: D o not add to previous draw Performed By: #### 8 [id number] #### [facility] [address] [place] [address], [facility] MCHC (RBC) [Mass/Vol] 28.9 g/dL Low 32.0-35.0 [facility] Comment on above: Order Comment: No: D o not add to previous draw Performed By: #### 8 [id number] #### [facility] [address] [facility] [place] [address], [facility] MCV (RBC) [Entitic vol] 94.9 fL Normal 82.0-98.0 [facility] Comment on above: Order Comment: No: D o not add to previous draw Performed By: #### 8 [id number] #### [facility] [address] [place] [address], [facility] Monocytes (Bld) [#/Vol] 1.1 10*3/uL High 0.1-1.0 [facility] Comment on above: Order Comment: No: D o not add to previous draw Performed By: #### 8 5499 #### [facility] [address] [place] [address], [facility] MONOS 12.9 % High 5.0-12.0 [facility] Comment on above: Order Comment: No: D o not add to previous draw Performed By: #### 8 [id number] #### [facility] [address] [place] [address], [place] Neutrophils/100 WBC (Bld) 70.6 % Normal 40.0-72.0 [facility] Comment on above: Order Comment: No: D o not add to previous draw Performed By: #### 8 [id number] #### [facility] [address] [place] [address], [place] Nucleated RBC/100 WBC (Bld) [Ratio] 0 % Normal 0-0 [facility] Comment on above: Order Comment: No: D o not add to previous draw Performed By: #### 8 [id number] #### [facility] [address] [place] [address], [place] PLAT ESTIMATE Normal Normal [facility] Comment on above: Order Comment: No: D o not add to previous draw Result Comment: EDTA smear shows platelet clumping, see platelet estimate Performed By: #### 8 [id number] #### [facility] [address] [place] [address], [place] RBC (Bld) [#/Vol] 3.76 10*6/uL Low 4.20-5.70 [facility] Comment on above: Order Comment: No: D o not add to previous draw Performed By: #### 8 [id number] #### [facility] [address] [place] [address], [place] WBC (Bld) [#/Vol] 8.30 10*3/uL Normal 4.00-10.60 [facility] Comment on above: Order Comment: No: D o not add to previous draw Performed By: #### 8 [id number] #### [facility] [address] [place] [address], [place] POC GLUCOSE LABon 07-20-2020 Glucose [Mass/Vol] 110 mg/dL High 70-100 [facility] Comment on above: Performed By: #### 5 0103 #### [facility] [address] [place] [address], [place] Glucose [Mass/Vol] 124 mg/dL High 70-100 [facility] Comment on above: Performed By: #### 5 0103 #### [facility] [address] [place] [address], [facility] Glucose [Mass/Vol] 111 mg/dL High 70-100 [facility] Comment on above: Performed By: #### 5 7307, 46263 #### [facility] [address] [place] [address], [facility] PORTABLE CHEST 1 VIEWon 06-28 PORTABLE CHEST 1 VIEW [facility] Department of Radiology [address] [place] [address] Patient Name: RASHARD LYMAN : 1960 Sex: M Age: Race: White Pt. Location: [address] [place] [address] Patient Status: I Ordered Date: 07/20/2020 6:00:00 [...] unchanged Electronically signed: Manuel Saldaña. Transcribed by: [email or web address], User Resident: Electronically Signed by: MANUEL SALDAÑA @ 07/20/2020 09:07 AM Normal [facility] Comment on above: Order Comment: Evalu ate for Effusion BASIC METABOLIC PANELon 06-28 Calcium [Mass/Vol] 8.4 mg/dL Low 8.6-10.3 [facility] Comment on above: Order Comment: No: D o not add to previous draw Performed By: #### 3 1943 #### [facility] [address] [place] [address], [place] Chloride [Moles/Vol] 104 mmol/L Normal 98-107 [facility] Comment on above: Order Comment: No: D o not add to previous draw Performed By: #### 3 1943 #### [facility] [address] [place] [address], [place] CO2 [Moles/Vol] 24 mmol/L Normal 21-31 [facility] Comment on above: Order Comment: No: D o not add to previous draw Performed By: #### 3 1943 #### [facility] [address] [place] [address], [place] Creatinine [Mass/Vol] 4.15 mg/dL High 0.70-1.30 [facility] Comment on above: Order Comment: No: D o not add to previous draw Performed By: #### 3 1943 #### [facility] [address] [place] [address], [place] eGFR- 18 ml/min/1.73sq m Abnormal >60 [facility] Comment on above: Order Comment: No: D o not add to previous draw Performed By: #### 3 1943 #### [facility] [address] [place] [address], [facility] eGFR- non- 15 ml/min/1.73sq m Abnormal >60 [facility] Comment on above: Order Comment: No: D o not add to previous draw Performed By: #### 3 1943 #### [facility] [address] [place] [address], [facility] Glucose [Mass/Vol] 180 mg/dL High 70-100 [facility] Comment on above: Order Comment: No: D o not add to previous draw Performed By: #### 3 1943 #### [facility] [address] [place] [address], [facility] Potassium [Moles/Vol] 4.4 mmol/L Normal 3.5-5.1 [facility] Comment on above: Order Comment: No: D o not add to previous draw Performed By: #### 3 1943 #### [facility] [address] [place] [address], [facility] Sodium [Moles/Vol] 135 mmol/L Low 136-145 [facility] Comment on above: Order Comment: No: D o not add to previous draw Performed By: #### 3 1943 #### [facility] [address] [place] [address], [facility] Urea nitrogen [Mass/Vol] 37 mg/dL High 7-25 [facility] Comment on above: Order Comment: No: D o not add to previous draw Performed By: #### 3 1943 #### [facility] [address] [place] [id number], [facility] CBC COMPLETE BLOOD COUNTon 0 - Erythrocyte distribution width (RBC) [Ratio] 14.8 % Normal 11.5-15.0 [facility] Comment on above: Order Comment: No: D o not add to previous draw Performed By: #### 8 [id number] #### [facility] [address] [place] [id number], [facility] Hematocrit (Bld) [Volume fraction] 30.9 % Low 39.0-50.0 [facility] Comment on above: Order Comment: No: D o not add to previous draw Performed By: #### 8 [id number] #### [facility] [address] [place] [id number], [facility] Hemoglobin (Bld) [Mass/Vol] 9.0 g/dL Low 13.0-17.0 [facility] Comment on above: Order Comment: No: D o not add to previous draw Performed By: #### 8 [id number] #### [facility] [address] [place] [id number], [facility] MCH (RBC) [Entitic mass] 26.6 pg Low 27.0-33.0 [facility] Comment on above: Order Comment: No: D o not add to previous draw Performed By: #### 8 [id number] #### [facility] [address] [place] [address], [facility] MCHC (RBC) [Mass/Vol] 29.1 g/dL Low 32.0-35.0 [facility] Comment on above: Order Comment: No: D o not add to previous draw Performed By: #### 8 [id number] #### [facility] [address] [place] [address], [facility] MCV (RBC) [Entitic vol] 91.4 fL Normal 82.0-98.0 [facility] Comment on above: Order Comment: No: D o not add to previous draw Performed By: #### 8 [id number] #### [facility] [address] [place] [id number], [facility] Nucleated RBC/100 WBC (Bld) [Ratio] 0 % Normal 0-0 [facility] Comment on above: Order Comment: No: D o not add to previous draw Performed By: #### 8 [id number] #### [facility] [address] [place] [address], [facility] PLAT CNT 279 10*3/uL Normal 150-400 [facility] Comment on above: Order Comment: No: D o not add to previous draw Performed By: #### 8 [id number] #### [facility] [address] [place] [address], [facility] RBC (Bld) [#/Vol] 3.38 10*6/uL Low 4.20-5.70 [facility] Comment on above: Order Comment: No: D o not add to previous draw Performed By: #### 8 [id number] #### [facility] [address] [facility] [place] [address], [facility] WBC (Bld) [#/Vol] 6.73 10*3/uL Normal 4.00-10.60 [facility] Comment on above: Order Comment: No: D o not add to previous draw Performed By: #### 8 [id number] #### [facility] [address] [facility]. [address] Operative Reporton Operative Report MR#: [id number] [facility] Pt. Name: [facility] Room #: [id number] Discharge Date: Birthdate: 1960 OPERATIVE REPORT DATE OF SURGERY: 07/19/2020 SURGEON: Nima Wynne MD Operative Note Medical Thoracoscopy, lysis of adhesions, pleural biopsy Procedure Date: 07/19/2020 Procedure: Medical Thoracoscopy, pleural biopsies, lysis of adhesions, and chest tube placement Preoperative Diagnosis: Loculated pleural effusion Post-operative Diagnosis: same Surgeons: Nima Wynne MD Furnace [employer]: Davis Pham MD Type of Anesthesia: MAC [...] Wynne MD Date Trans: 07/19/2020 02:43 P/ [id number] cc: Jose Juarez D.O. [address] [place], [place] [id number] Normal [facility] POC GLUCOSE LABon 07-19-2020 Glucose [Mass/Vol] 219 mg/dL High 70-100 [facility] Comment on above: Performed By: #### 5 7307, 14061 #### [facility] [address] [place] [address], [place] Glucose [Mass/Vol] 152 mg/dL High 70-100 [facility] Comment on above: Performed By: #### 5 7307, [id number] #### [facility] [address] [place] [address], [place] Glucose [Mass/Vol] 183 mg/dL High 70-100 [facility] Comment on above: Performed By: #### 5 0103 #### [facility] [address] [facility] [place] [address], [place] Glucose [Mass/Vol] 206 mg/dL High 70-100 [facility] Comment on above: Performed By: #### 8 [id number] ####[facility] [facility] [place] [address], [place] Glucose [Mass/Vol] 179 mg/dL High 70-100 [facility] Comment on above: Performed By: #### 5 0103 #### [facility] [address] [facility] [place] [address], [place] PORTABLE CHEST 1 VIEWon 06-28 PORTABLE CHEST 1 VIEW [facility] Department of Radiology [address] [place] [id number] Patient Name: RASHARD LYMAN : 1960 Sex: M Age: Race: White Pt. Location: [address] [place] [address] Patient Status: I Ordered Date: 07/19/2020 2:20:00 [...] infiltration Electronically signed: Pedro Baldwin. Transcribed by: [email or web address], User Resident: PEDRO BALDWIN Electronically Signed by: PEDRO BALDWIN @ 07/19/2020 03:03 PM I personally read this/these film(s) with this resident Normal [facility] Comment on above: Order Comment: Check Chest Tube Position BASIC METABOLIC PANELon 06-28 Calcium [Mass/Vol] 8.4 mg/dL Low 8.6-10.3 [facility] Comment on above: Order Comment: No: D o not add to previous draw Performed By: #### 8 [id number] #### [facility] [address] [place] [address], [facility] Chloride [Moles/Vol] 105 mmol/L Normal 98-107 [facility] Comment on above: Order Comment: No: D o not add to previous draw Performed By: #### 8 [id number] #### [facility] [address] [place] [address], [facility] CO2 [Moles/Vol] 25 mmol/L Normal 21-31 [facility] Comment on above: Order Comment: No: D o not add to previous draw Performed By: #### 8 [id number] #### [facility] [address] [place] [address], [place] Creatinine [Mass/Vol] 4.54 mg/dL High 0.70-1.30 [facility] Comment on above: Order Comment: No: D o not add to previous draw Performed By: #### 8 [id number] #### [facility] [address] [place] [address], [facility] eGFR- 16 ml/min/1.73sq m Abnormal >60 [facility] Comment on above: Order Comment: No: D o not add to previous draw Performed By: #### 8 [id number] #### [facility] [address] [place] [address], [place] eGFR- non- 13 ml/min/1.73sq m Abnormal >60 [facility] Comment on above: Order Comment: No: D o not add to previous draw Performed By: #### 8 5499 #### [facility] [address] [place] [address], [place] Glucose [Mass/Vol] 118 mg/dL High 70-100 [facility] Comment on above: Order Comment: No: D o not add to previous draw Performed By: #### 8 5499 #### [facility] [address] [place] [address], [place] Potassium [Moles/Vol] 4.5 mmol/L Normal 3.5-5.1 [facility] Comment on above: Order Comment: No: D o not add to previous draw Performed By: #### 8 5499 #### [facility] [address] Sodium [Moles/Vol] 137 mmol/L Normal 136-145 [facility] Comment on above: Order Comment: No: D o not add to previous draw Performed By: #### 8 5499 #### [facility] [address] Urea nitrogen [Mass/Vol] 40 mg/dL High 7-25 [facility] Comment on above: Order Comment: No: D o not add to previous draw Performed By: #### 8 5499 #### [facility] [address] [place] [address], [facility] CBC W/DIFFon 07-18-2020 ABS IMM GRANS 0.1 10*3/uL Normal 0.0-0.2 [facility] Comment on above: Order Comment: No: D o not add to previous draw Performed By: #### 8 [id number] #### [facility] [address] ABS NEUTROPHILS 5.0 10*3/uL Normal 1.6-7.6 [facility] Comment on above: Order Comment: No: D o not add to previous draw Performed By: #### 8 [id number] #### [facility] [address] [place] [address], [facility] Basophils (Bld) [#/Vol] 0.0 10*3/uL Normal 0.0-0.2 [facility] Comment on above: Order Comment: No: D o not add to previous draw Performed By: #### 8 [id number] #### [facility] [address] [place] [address], [facility] Basophils/100 WBC (Bld) 0.4 % Normal 0.0-1.0 [facility] Comment on above: Order Comment: No: D o not add to previous draw Performed By: #### 8 [id number] #### [facility] [address] [place] [address], [facility] Eosinophils (Bld) [#/Vol] 0.6 10*3/uL High 0.0-0.5 [facility] Comment on above: Order Comment: No: D o not add to previous draw Performed By: #### 8 [id number] #### [facility] [address] [place] [address], [facility] Eosinophils/100 WBC (Bld) 6.8 % High 0.0-6.0 [facility] Comment on above: Order Comment: No: D o not add to previous draw Performed By: #### 8 [id number] #### [facility] [address] Erythrocyte distribution width (RBC) [Ratio] 14.8 % Normal 11.5-15.0 [facility] Comment on above: Order Comment: No: D o not add to previous draw Performed By: #### 8 [id number] #### [facility] [address] Hematocrit (Bld) [Volume fraction] 31.9 % Low 39.0-50.0 [facility] Comment on above: Order Comment: No: D o not add to previous draw Performed By: #### 8 [id number] #### [facility] [address] [place] [address], [facility] Hemoglobin (Bld) [Mass/Vol] 9.4 g/dL Low 13.0-17.0 [facility] Comment on above: Order Comment: No: D o not add to previous draw Performed By: #### 8 [id number] #### [facility] [address] [place] [address], [facility] IMMATURE GRANS 1.7 % High 0.0-1.0 [facility] Comment on above: Order Comment: No: D o not add to previous draw Performed By: #### 8 [id number] #### [facility] [address] [place] [address], [facility] Lymphocytes (Bld) [#/Vol] 1.2 10*3/uL Normal 1.2-4.0 [facility] Comment on above: Order Comment: No: D o not add to previous draw Performed By: #### 8 [id number] #### [facility] [address] [place] [address], [facility] Lymphocytes/100 WBC (Bld) 14.8 % Low 20.0-45.0 [facility] Comment on above: Order Comment: No: D o not add to previous draw Performed By: #### 8 [id number] #### [facility] [address] [place] [address], [facility] MCH (RBC) [Entitic mass] 26.9 pg Low 27.0-33.0 [facility] Comment on above: Order Comment: No: D o not add to previous draw Performed By: #### 8 [id number] #### [facility] [address] [place] [address], [facility] MCHC (RBC) [Mass/Vol] 29.5 g/dL Low 32.0-35.0 [facility] Comment on above: Order Comment: No: D o not add to previous draw Performed By: #### 8 [id number] #### [facility] [address] [place] [address], [facility] MCV (RBC) [Entitic vol] 91.1 fL Normal 82.0-98.0 [facility] Comment on above: Order Comment: No: D o not add to previous draw Performed By: #### 8 [id number] #### [facility] [address] [place] [id number], [facility] Monocytes (Bld) [#/Vol] 1.1 10*3/uL High 0.1-1.0 [facility] Comment on above: Order Comment: No: D o not add to previous draw Performed By: #### 8 [id number] #### [facility] [address] [place] [id number], [place] MONOS 13.4 % High 5.0-12.0 [facility] Comment on above: Order Comment: No: D o not add to previous draw Performed By: #### 8 [id number] #### [facility] [address] [place] [id number], [facility] Neutrophils/100 WBC (Bld) 62.9 % Normal 40.0-72.0 [facility] Comment on above: Order Comment: No: D o not add to previous draw Performed By: #### 8 [id number] #### [facility] [address] [place] [address], [facility] Nucleated RBC/100 WBC (Bld) [Ratio] 0 % Normal 0-0 [facility] Comment on above: Order Comment: No: D o not add to previous draw Performed By: #### 8 [id number] #### [facility] [address] [facility] [place] [id number], [facility] PLAT CNT 296 10*3/uL Normal 150-400 [facility] Comment on above: Order Comment: No: D o not add to previous draw Performed By: #### 8 [id number] #### [facility] [address] [facility] [place] [address], [facility] RBC (Bld) [#/Vol] 3.50 10*6/uL Low 4.20-5.70 [facility] Comment on above: Order Comment: No: D o not add to previous draw Performed By: #### 8 [id number] #### [facility] [address] [place] [address], [place] WBC (Bld) [#/Vol] 8.03 10*3/uL Normal 4.00-10.60 [facility] Comment on above: Order Comment: No: D o not add to previous draw Performed By: #### 8 [id number] #### [facility] [address] [place] [address], [facility] POC GLUCOSE LABon 07-18-2020 Glucose [Mass/Vol] 192 mg/dL High 70-100 [facility] Comment on above: Performed By: #### 5 7307, 58437 #### [facility] [address] [place] [address], [place] Glucose [Mass/Vol] 153 mg/dL High 70-100 [facility] Comment on above: Performed By: #### 5 7307, 63009 #### [facility] [address] [place] [address], [place] Glucose [Mass/Vol] 80 mg/dL Normal 70-100 [facility] Comment on above: Performed By: #### 5 7307, 77598 #### [facility] [address] [place] [address], [place] Glucose [Mass/Vol] 48 mg/dL Critically low 70-100 [facility] Comment on above: Order Comment: Left Peural Effusion Performed By: #### 8 [id number] ####[facility] [place] [address], [place] Glucose [Mass/Vol] 120 mg/dL High 70-100 [facility] Comment on above: Performed By: #### 5 0103 #### [facility] [address] [place] [address], [place] Glucose [Mass/Vol] 112 mg/dL High 70-100 [facility] Comment on above: Performed By: #### 5 7307, 46437 #### [facility] [address] [place] [address], [place] POC SARS COV2 ANTIGEN NEGATI VEon 07-18-2020 POC SARS COV2 ANTIGEN NEG CANCELED Normal NEGATIVE [facility] Comment on above: Result Comment: The released value NEGATIVE was canceled by ULISES on 07/19/2020 07:11 Performed By: #### 3 1944 #### [facility] [address] [place] [address], [place] POC SARS COV2 ANTIGEN NEG Negative Normal NEGATIVE [facility] Comment on above: Result Comment: Nega [...] signs and symptoms consistent with COVID-19. The [employer] COVID-19 Antigen test is a lateral flow [...] Accreditation. Performed By: #### 8 [id number] #### [facility] [address] [place] [address], [facility] BASIC METABOLIC PANELon 03-2 Calcium [Mass/Vol] 8.2 mg/dL Low 8.6-10.3 [facility] Comment on above: Order Comment: No: D o not add to previous draw Performed By: #### 3 1943 #### [facility] [address] [facility] [place] [address], [place] Chloride [Moles/Vol] 101 mmol/L Normal 98-107 [facility] Comment on above: Order Comment: No: D o not add to previous draw Performed By: #### 3 1943 #### [facility] [address] [place] [address], [place] CO2 [Moles/Vol] 25 mmol/L Normal 21-31 [facility] Comment on above: Order Comment: No: D o not add to previous draw Performed By: #### 3 1943 #### [facility] [address] [place] [address], [place] Creatinine [Mass/Vol] 3.64 mg/dL High 0.70-1.30 [facility] Comment on above: Order Comment: No: D o not add to previous draw Performed By: #### 3 1943 #### [facility] [address] [place] [address], [facility] eGFR- 21 ml/min/1.73sq m Abnormal >60 [facility] Comment on above: Order Comment: No: D o not add to previous draw Performed By: #### 3 1943 #### [facility] [address] [place] [address], [facility] eGFR- non- 17 ml/min/1.73sq m Abnormal >60 [facility] Comment on above: Order Comment: No: D o not add to previous draw Performed By: #### 3 1943 #### [facility] [address] [place] [address], [place] Glucose [Mass/Vol] 124 mg/dL High 70-100 [facility] Comment on above: Order Comment: No: D o not add to previous draw Performed By: #### 3 1943 #### [facility] [address] [place] [address], [place] Potassium [Moles/Vol] 4.3 mmol/L Normal 3.5-5.1 [facility] Comment on above: Order Comment: No: D o not add to previous draw Performed By: #### 3 1943 #### [facility] [address] [place] [address], [place] Sodium [Moles/Vol] 134 mmol/L Low 136-145 [facility] Comment on above: Order Comment: No: D o not add to previous draw Performed By: #### 3 1943 #### [facility] [address] Urea nitrogen [Mass/Vol] 36 mg/dL High 7-25 [facility] Comment on above: Order Comment: No: D o not add to previous draw Performed By: #### 3 1944 #### [facility] [address] [place] [address], [facility] CBC W/DIFFon 07-17-2020 ABS IMM GRANS 0.2 10*3/uL Normal 0.0-0.2 [facility] Comment on above: Order Comment: No: D o not add to previous draw Performed By: #### 8 [id number] #### [facility] [address] [place] [address], [facility] ABS NEUTROPHILS 5.8 10*3/uL Normal 1.6-7.6 [facility] Comment on above: Order Comment: No: D o not add to previous draw Performed By: #### 8 [id number] #### [facility] [address] [place] [address], [facility] Basophils (Bld) [#/Vol] 0.1 10*3/uL Normal 0.0-0.2 [facility] Comment on above: Order Comment: No: D o not add to previous draw Performed By: #### 8 [id number] #### [facility] [address] [place] [address], [facility] Basophils/100 WBC (Bld) 0.6 % Normal 0.0-1.0 [facility] Comment on above: Order Comment: No: D o not add to previous draw Performed By: #### 8 [id number] #### [facility] [address] [place] [address], [facility] Eosinophils (Bld) [#/Vol] 0.6 10*3/uL High 0.0-0.5 [facility] Comment on above: Order Comment: No: D o not add to previous draw Performed By: #### 8 [id number] #### [facility] [address] [place] [address], [facility] Eosinophils/100 WBC (Bld) 7.0 % High 0.0-6.0 [facility] Comment on above: Order Comment: No: D o not add to previous draw Performed By: #### 8 [id number] #### [facility] [address] [place] [address], [facility] Erythrocyte distribution width (RBC) [Ratio] 14.8 % Normal 11.5-15.0 [facility] Comment on above: Order Comment: No: D o not add to previous draw Performed By: #### 8 [id number] #### [facility] [address] [place] [address], [facility] Hematocrit (Bld) [Volume fraction] 30.0 % Low 39.0-50.0 [facility] Comment on above: Order Comment: No: D o not add to previous draw Performed By: #### 8 [id number] #### [facility] [address] [place] [address], [facility] Hemoglobin (Bld) [Mass/Vol] 9.2 g/dL Low 13.0-17.0 [facility] Comment on above: Order Comment: No: D o not add to previous draw Performed By: #### 8 [id number] #### [facility] [address] [facility] [place] [address], [facility] IMMATURE GRANS 1.7 % High 0.0-1.0 [facility] Comment on above: Order Comment: No: D o not add to previous draw Performed By: #### 8 [id number] #### [facility] [address] [facility] [place] [address], [facility] Lymphocytes (Bld) [#/Vol] 1.3 10*3/uL Normal 1.2-4.0 [facility] Comment on above: Order Comment: No: D o not add to previous draw Performed By: #### 8 [id number] #### [facility] [address] Lymphocytes/100 WBC (Bld) 14.3 % Low 20.0-45.0 [facility] Comment on above: Order Comment: No: D o not add to previous draw Performed By: #### 8 [id number] #### [facility] [address] [facility] [place] [address], [facility] MCH (RBC) [Entitic mass] 27.3 pg Normal 27.0-33.0 [facility] Comment on above: Order Comment: No: D o not add to previous draw Performed By: #### 8 [id number] #### [facility] [address] [place] [address], [facility] MCHC (RBC) [Mass/Vol] 30.7 g/dL Low 32.0-35.0 [facility] Comment on above: Order Comment: No: D o not add to previous draw Performed By: #### 8 [id number] #### [facility] [address] [facility] [place] [address], [facility] MCV (RBC) [Entitic vol] 89.0 fL Normal 82.0-98.0 [facility] Comment on above: Order Comment: No: D o not add to previous draw Performed By: #### 8 [id number] #### [facility] [address] [place] [address], [facility] Monocytes (Bld) [#/Vol] 1.0 10*3/uL Normal 0.1-1.0 [facility] Comment on above: Order Comment: No: D o not add to previous draw Performed By: #### 8 [id number] #### [facility] [address] [place] [address], [facility] MONOS 10.9 % Normal 5.0-12.0 [facility] Comment on above: Order Comment: No: D o not add to previous draw Performed By: #### 8 [id number] #### [facility] [address] [place] [address], [facility] Neutrophils/100 WBC (Bld) 65.5 % Normal 40.0-72.0 [facility] Comment on above: Order Comment: No: D o not add to previous draw Performed By: #### 8 [id number] #### [facility] [address] [place] [address], [place] Nucleated RBC/100 WBC (Bld) [Ratio] 0 % Normal 0-0 [facility] Comment on above: Order Comment: No: D o not add to previous draw Performed By: #### 8 [id number] #### [facility] [address] [place] [address], [place] PLAT CNT 293 10*3/uL Normal 150-400 [facility] Comment on above: Order Comment: No: D o not add to previous draw Performed By: #### 8 [id number] #### [facility] [address] [place] [address], [place] RBC (Bld) [#/Vol] 3.37 10*6/uL Low 4.20-5.70 [facility] Comment on above: Order Comment: No: D o not add to previous draw Performed By: #### 8 [id number] #### [facility] [address] [place] [address], [place] WBC (Bld) [#/Vol] 8.86 10*3/uL Normal 4.00-10.60 [facility] Comment on above: Order Comment: No: D o not add to previous draw Performed By: #### 8 [id number] #### [facility] [address] [place] [address], [place] POC GLUCOSE LABon 07-17-2020 Glucose [Mass/Vol] 101 mg/dL High 70-100 [facility] Comment on above: Performed By: #### 5 7307, 27298 #### [facility] [address] [place] [address], [place] Glucose [Mass/Vol] 76 mg/dL Normal 70-100 [facility] Comment on above: Performed By: #### 5 7307, 98019 #### [facility] [address] [place] [address], [place] Glucose [Mass/Vol] 75 mg/dL Normal 70-100 [facility] Comment on above: Performed By: #### 8 5499 ####[facility] [place] [address], [place] Glucose [Mass/Vol] 198 mg/dL High 70-100 [facility] Comment on above: Performed By: #### 8 [id number] ####[facility] [place] [address], [place] Glucose [Mass/Vol] 205 mg/dL High 70-100 [facility] Comment on above: Performed By: #### 3 0318 #### [facility] [address] [place] [address], [place] Glucose [Mass/Vol] 187 mg/dL High 70-100 [facility] Comment on above: Performed By: #### 5 7307, 38895 #### [facility] [address] [place] [address], [place] Glucose [Mass/Vol] 131 mg/dL High 70-100 [facility] Comment on above: Performed By: #### 8 [id number] #### [facility] [address] [place] [address], [place] Glucose [Mass/Vol] 75 mg/dL Normal 70-100 [facility] Comment on above: Performed By: #### 5 0103 #### [facility] [address] [place] [address], [place] Glucose [Mass/Vol] 69 mg/dL Low 70-100 [facility] Comment on above: Performed By: #### 8 [id number] ####[facility] [place] [address], [place] BASIC METABOLIC PANELon 03-2 0-2021 Calcium [Mass/Vol] 8.4 mg/dL Low 8.6-10.3 [facility] Comment on above: Order Comment: No: D o not add to previous draw Performed By: #### 3 1943 #### [facility] [address] [place] [address], [place] Chloride [Moles/Vol] 105 mmol/L Normal 98-107 [facility] Comment on above: Order Comment: No: D o not add to previous draw Performed By: #### 3 1943 #### [facility] [address] [place] [address], [place] CO2 [Moles/Vol] 24 mmol/L Normal 21-31 [facility] Comment on above: Order Comment: No: D o not add to previous draw Performed By: #### 3 1943 #### [facility] [address] [place] [address], [place] Creatinine [Mass/Vol] 4.14 mg/dL High 0.70-1.30 [facility] Comment on above: Order Comment: No: D o not add to previous draw Performed By: #### 3 1943 #### [facility] [address] [place] [address], [place] eGFR- 18 ml/min/1.73sq m Abnormal >60 [facility] Comment on above: Order Comment: No: D o not add to previous draw Performed By: #### 3 1943 #### [facility] [address] [place] [address], [place] eGFR- non- 15 ml/min/1.73sq m Abnormal >60 [facility] Comment on above: Order Comment: No: D o not add to previous draw Performed By: #### 3 1943 #### [facility] [address] [place] [address], [place] Glucose [Mass/Vol] 127 mg/dL High 70-100 [facility] Comment on above: Order Comment: No: D o not add to previous draw Performed By: #### 3 1943 #### [facility] [address] [place] [address], [place] Potassium [Moles/Vol] 4.0 mmol/L Normal 3.5-5.1 [facility] Comment on above: Order Comment: No: D o not add to previous draw Performed By: #### 3 1943 #### [facility] [address] [place] [address], [place] Sodium [Moles/Vol] 136 mmol/L Normal 136-145 [facility] Comment on above: Order Comment: No: D o not add to previous draw Performed By: #### 3 1943 #### [facility] [address] [place] [address], [place] Urea nitrogen [Mass/Vol] 35 mg/dL High 7-25 [facility] Comment on above: Order Comment: No: D o not add to previous draw Performed By: #### 3 1943 #### [facility] [address] [place] [address], [facility] CBC COMPLETE BLOOD COUNTon 0 - Erythrocyte distribution width (RBC) [Ratio] 14.6 % Normal 11.5-15.0 [facility] Comment on above: Order Comment: No: D o not add to previous draw Performed By: #### 8 [id number] #### [facility] [address] [place] [address], [place] Hematocrit (Bld) [Volume fraction] 31.8 % Low 39.0-50.0 [facility] Comment on above: Order Comment: No: D o not add to previous draw Performed By: #### 8 [id number] #### [facility] [address] [place] [address], [place] Hemoglobin (Bld) [Mass/Vol] 9.7 g/dL Low 13.0-17.0 [facility] Comment on above: Order Comment: No: D o not add to previous draw Performed By: #### 8 [id number] #### [facility] [address] [facility]. [address] MCH (RBC) [Entitic mass] 27.2 pg Normal 27.0-33.0 [facility] Comment on above: Order Comment: No: D o not add to previous draw Performed By: #### 8 [id number] #### [facility] [address] [facility]. [address] MCHC (RBC) [Mass/Vol] 30.5 g/dL Low 32.0-35.0 [facility] Comment on above: Order Comment: No: D o not add to previous draw Performed By: #### 8 [id number] #### [facility] [address] MCV (RBC) [Entitic vol] 89.3 fL Normal 82.0-98.0 [facility] Comment on above: Order Comment: No: D o not add to previous draw Performed By: #### 8 [id number] #### [facility] [address] Nucleated RBC/100 WBC (Bld) [Ratio] 0 % Normal 0-0 [facility] Comment on above: Order Comment: No: D o not add to previous draw Performed By: #### 8 [id number] #### [facility] [address] [place] [address], [facility] PLAT CNT 321 10*3/uL Normal 150-400 [facility] Comment on above: Order Comment: No: D o not add to previous draw Performed By: #### 8 [id number] #### [facility] [address] [place] [address], [facility] RBC (Bld) [#/Vol] 3.56 10*6/uL Low 4.20-5.70 [facility] Comment on above: Order Comment: No: D o not add to previous draw Performed By: #### 8 [id number] #### [facility] [address] [place] [address], [place] WBC (Bld) [#/Vol] 8.88 10*3/uL Normal 4.00-10.60 [facility] Comment on above: Order Comment: No: D o not add to previous draw Performed By: #### 8 [id number] #### [facility] [address] [place] [address], [place] POC GLUCOSE LABon 07-16-2020 Glucose [Mass/Vol] 94 mg/dL Normal 70-100 [facility] Comment on above: Performed By: #### 5 0103 #### [facility] [address] [place] [address], [place] Glucose [Mass/Vol] 62 mg/dL Low 70-100 [facility] Comment on above: Performed By: #### 5 7307, 64209 #### [facility] [address] [place] [address], [place] Glucose [Mass/Vol] 80 mg/dL Normal 70-100 [facility] Comment on above: Performed By: #### 5 7307, 02576 #### [facility] [address] [place] [address], [place] Glucose [Mass/Vol] 99 mg/dL Normal 70-100 [facility] Comment on above: Performed By: #### 8 5499 ####[facility] [place] [address], [place] Glucose [Mass/Vol] 203 mg/dL High 70-100 [facility] Comment on above: Performed By: #### 8 [id number] ####[facility] [place] [address], [place] Glucose [Mass/Vol] 151 mg/dL High 70-100 [facility] Comment on above: Performed By: #### 5 73, 63600 #### [facility] [address] [place] [address], [facility] ANAon 07-15-2020 KILLIAN SCREEN <1:40 Normal <1:40,1:40 [facility] Comment on above: Order Comment: No: D o not add to previous draw Performed By: #### 8 [id number] #### [facility] [address] [place] [address], [facility] ANCA IGG WITH REFLEX [id number] on 07-15-2020 ANCA <1:20 Normal <1:20 [facility] Comment on above: Order Comment: No: [...] collagen vascular disease or arthritis. Performed By: [employer]) [address] [place] [address] Loom Setter: Emi Campbell MD BASIC METABOLIC PANELon 06-27 Calcium [Mass/Vol] 8.5 mg/dL Low 8.6-10.3 [facility] Comment on above: Order Comment: No: D o not add to previous draw Performed By: #### 8 [id number] #### [facility] [address] [place] [address], [place] Chloride [Moles/Vol] 103 mmol/L Normal 98-107 [facility] Comment on above: Order Comment: No: D o not add to previous draw Performed By: #### 8 [id number] #### [facility] [address] [place] [address], [facility] CO2 [Moles/Vol] 23 mmol/L Normal 21-31 [facility] Comment on above: Order Comment: No: D o not add to previous draw Performed By: #### 8 [id number] #### [facility] [address] [place] [address], [place] Creatinine [Mass/Vol] 4.38 mg/dL High 0.70-1.30 [facility] Comment on above: Order Comment: No: D o not add to previous draw Performed By: #### 8 [id number] #### [facility] [address] [place] [address], [place] eGFR- 17 ml/min/1.73sq m Abnormal >60 [facility] Comment on above: Order Comment: No: D o not add to previous draw Performed By: #### 8 [id number] #### [facility] [address] [place] [address], [place] eGFR- non- 14 ml/min/1.73sq m Abnormal >60 [facility] Comment on above: Order Comment: No: D o not add to previous draw Performed By: #### 8 [id number] #### [facility] [address] [place] [address], [place] Glucose [Mass/Vol] 154 mg/dL High 70-100 [facility] Comment on above: Order Comment: No: D o not add to previous draw Performed By: #### 8 [id number] #### [facility] [address] [place] [address], [place] Potassium [Moles/Vol] 4.5 mmol/L Normal 3.5-5.1 [facility] Comment on above: Order Comment: No: D o not add to previous draw Performed By: #### 8 [id number] #### [facility] [address] [place] [address], [place] Sodium [Moles/Vol] 135 mmol/L Low 136-145 [facility] Comment on above: Order Comment: No: D o not add to previous draw Performed By: #### 8 [id number] #### [facility] [address] [place] [address], [place] Urea nitrogen [Mass/Vol] 32 mg/dL High 7-25 [facility] Comment on above: Order Comment: No: D o not add to previous draw Performed By: #### 8 [id number] #### [facility] [address] C REACTIVE PROTEINon 021 CRP [Mass/Vol] 138.0 mg/L High 0.0-7.0 [facility] Comment on above: Order Comment: FROM [id number] Performed By: #### 8 [id number] #### [facility] [address] CBC W/DIFFon 07-15-2020 ABS IMM GRANS 0.1 10*3/uL Normal 0.0-0.2 [facility] Comment on above: Performed By: #### 5 3 #### [facility] [address] ABS NEUTROPHILS 7.3 10*3/uL Normal 1.6-7.6 [facility] Comment on above: Performed By: #### 5 0103 #### [facility] [address] Basophils (Bld) [#/Vol] 0.0 10*3/uL Normal 0.0-0.2 [facility] Comment on above: Performed By: #### 5 0103 #### [facility] [address] Basophils/100 WBC (Bld) 0.3 % Normal 0.0-1.0 [facility] Comment on above: Performed By: #### 5 0103 #### [facility] [address] [place] [address], [facility] Eosinophils (Bld) [#/Vol] 0.5 10*3/uL Normal 0.0-0.5 [facility] Comment on above: Performed By: #### 5 0103 #### [facility] [address] [place] [address], [facility] Eosinophils/100 WBC (Bld) 5.1 % Normal 0.0-6.0 [facility] Comment on above: Performed By: #### 5 0103 #### [facility] [address] [place] [address], [facility] Erythrocyte distribution width (RBC) [Ratio] 14.9 % Normal 11.5-15.0 [facility] Comment on above: Performed By: #### 3 #### [facility] [address] [facility] [place] [address], [facility] Hematocrit (Bld) [Volume fraction] 33.0 % Low 39.0-50.0 [facility] Comment on above: Performed By: #### 102 #### [facility] [address] [facility] [place] [address], [facility] Hemoglobin (Bld) [Mass/Vol] 9.9 g/dL Low 13.0-17.0 [facility] Comment on above: Performed By: #### 3 #### [facility] [address] [facility] [place] [address], [facility] IMMATURE GRANS 1.4 % High 0.0-1.0 [facility] Comment on above: Performed By: #### 3 #### [facility] [address] [facility] [place] [address], [facility] Lymphocytes (Bld) [#/Vol] 1.1 10*3/uL Low 1.2-4.0 [facility] Comment on above: Performed By: #### 5 0103 #### [facility] [address] [facility] [place] [address], [facility] Lymphocytes/100 WBC (Bld) 11.0 % Low 20.0-45.0 [facility] Comment on above: Performed By: #### 5 3 #### [facility] [address] MCH (RBC) [Entitic mass] 27.0 pg Normal 27.0-33.0 [facility] Comment on above: Performed By: #### 5 0103 #### [facility] [address] MCHC (RBC) [Mass/Vol] 30.0 g/dL Low 32.0-35.0 [facility] Comment on above: Performed By: #### 5 0103 #### [facility] [address] MCV (RBC) [Entitic vol] 90.2 fL Normal 82.0-98.0 [facility] Comment on above: Performed By: #### 5 0103 #### [facility] [address] Monocytes (Bld) [#/Vol] 1.1 10*3/uL High 0.1-1.0 [facility] Comment on above: Performed By: #### 5 0103 #### [facility] [address] MONOS 10.9 % Normal 5.0-12.0 [facility] Comment on above: Performed By: #### 5 0103 #### [facility] [address] Neutrophils/100 WBC (Bld) 71.3 % Normal 40.0-72.0 [facility] Comment on above: Performed By: #### 5 0103 #### [facility] [address] Nucleated RBC/100 WBC (Bld) [Ratio] 0 % Normal 0-0 [facility] Comment on above: Performed By: #### 5 0103 #### [facility] [address] [place] [address], [facility] PLAT CNT 317 10*3/uL Normal 150-400 [facility] Comment on above: Performed By: #### 5 0103 #### [facility] [address] [place] [address], [facility] RBC (Bld) [#/Vol] 3.66 10*6/uL Low 4.20-5.70 [facility] Comment on above: Performed By: #### 5 0103 #### [facility] [address] [facility] [place] [address], [facility] WBC (Bld) [#/Vol] 10.23 10*3/uL Normal 4.00-10.60 [facility] Comment on above: Performed By: #### 5 0103 #### [facility] [address] [facility] [place] [address], [facility] COMPLEMENT 3on 07-15-2020 COMPLEMENT 3 108 mg/dL Normal 79-152 [facility] Comment on above: Order Comment: No: D o not add to previous draw Performed By: #### 8 [id number] #### [facility] [address] [facility] [place] [address], [facility] COMPLEMENT 4on 07-15-2020 COMPLEMENT 4 31 mg/dL Normal 16-38 [facility] Comment on above: Order Comment: No: D o not add to previous draw Performed By: #### 8 [id number] #### [facility] [address] [facility] [address] GLOMR BASMT MEMBRon 07-16-19 21 GLOMR BASMT MBRN Negative Abnormal NEGATIVE [facility] Comment on above: Order Comment: No: D o not add to previous draw Result Comment: Note : The performance characteristics of this test were validated by the [facility] laboratory. It has not been cleared or approved by the U.S. Food and Drug Administration. The results are not intended to be used as the sole means for clinical diagnosis or patient management decisions. [facility] lab is authorized under CLIA to perform high-complexity testing. Performed By: #### 8 [id number] #### [facility] [address] [place] [address], [place] POC GLUCOSE LABon 07-15-2020 Glucose [Mass/Vol] 107 mg/dL High 70-100 [facility] Comment on above: Performed By: #### 5 7307, 76189 #### [facility] [address] [place] [address], [place] Glucose [Mass/Vol] 84 mg/dL Normal 70-100 [facility] Comment on above: Performed By: #### 5 0103 #### [facility] [address] [place] [address], [place] Glucose [Mass/Vol] 164 mg/dL High 70-100 [facility] Comment on above: Performed By: #### 8 5499 ####[facility] [place] [address], [place] Glucose [Mass/Vol] 141 mg/dL High 70-100 [facility] Comment on above: Performed By: #### 5 7307, 35362 #### [facility] [address] [place] [address], [place] PORTABLE CHEST 1 VIEWon 06-27 PORTABLE CHEST 1 VIEW [facility] Department of Radiology [address] [place] [id number] Patient Name: RASHARD LYMAN : 1960 Sex: M Age: Race: White Pt. Location: [id number] Patient Status: I Ordered Date: 07/15/2020 7:00:00 [...] exam. Electronically signed: Nir Swartz. Transcribed by: [email or web address], User Resident: Electronically Signed by: NIR SWARTZ @ 07/15/2020 07:34 AM Normal [facility] Comment on above: Order Comment: evalu ate for Effusion *AFB CULTUREon 07-14-2020 *AFB CULTURE Clinical Report: (D) Specimen/Source: FLUID/PLEURAL FLUID Collected: 07/14/2020 13:03 Status: Final Last Updated: 08/26/2020 08:52 (1) Left Peural Effusion AFB (Final) No Acid Fast Bacilli Seen CULT RES (Final) No growth after 42 days of incubation Normal [facility] Comment on above: Order Comment: Left Peural Effusion Performed By: #### 8 [id number] #### [place] [address] [place] [address] *ANAEROBIC CULTUREon 021 *ANAEROBIC CULTURE Clinical Report: (D) Specimen/Source: FLUID/PLEURAL FLUID Collected: 07/14/2020 13:03 Status: Final Last Updated: 07/19/2020 08:08 (1) Left Peural Effusion CULT RES (Final) No Anaerobes Isolated 5 Days Normal [facility] Comment on above: Order Comment: Left Peural Effusion Performed By: #### 8 [id number] #### [facility] [address] *BODY FLUID CULTUREon 2020 *BODY FLUID CULTURE Clinical Report: (D) Specimen/Source: FLUID/PLEURAL FLUID Collected: 07/14/2020 13:03 Status: Final Last Updated: 07/19/2020 07:53 (1) Left Peural Effusion GRAM (Final) Polys PRESENT No Bacteria Seen CYTOSPUN (Final) This Gram Stain was done on a cytocentrifuged specimen CULT RES (Final) No Growth Day 5 Normal [facility] Comment on above: Order Comment: Left Peural Effusion Performed By: #### 3 0318 #### [facility] [address] *FUNGAL CULTUREon 07-14-2020 *FUNGAL CULTURE Clinical Report: (D) Specimen/Source: FLUID/PLEURAL FLUID Collected: 07/14/2020 13:03 Status: Final Last Updated: 08/15/2020 08:41 (1) Left Peural Effusion FS (Final) No Yeast or Fungal Elements Seen CULT RES (Final) Culture negative for fungus Normal [facility] Comment on above: Order Comment: Left Peural Effusion Performed By: #### 8 [id number] #### [facility] [address] *VIRAL NON RESPIRATORY CULTU REon 07-14-2020 Bacteria identified Cx Nom (Unsp spec) Normal [facility] Comment on above: Order Comment: Left [...] Linked Virus Inducible S. [place] Normal [facility] Comment on above: Order Comment: Left Peural Effusion Result Comment: Test Performed by [employer] [address] - Released 07/20/2020 14:10 Result changed by IF on 07/17/2020 14:17. The previous value was Test Performed by [address] [address] [phone].. Result changed by IF on 07/18/2020 12:17. The previous value was Test Performed by [employer] [address] [phone].. Result changed by IF on 07/20/2020 14:10. The previous value was Test Performed by [employer] [address] [phone].. REPORT STATUS FINAL 07/20/2020 Normal [facility] Comment on above: Order Comment: Left Peural Effusion Result Comment: Resu lt changed by IF on 07/20/2020 14:10. The previous value was Preliminary. APTTon 07-14-2020 aPTT Coag (Bld) [Time] 41.7 s High 25.0-35.0 [facility] Comment on above: Order Comment: No: [...] PURPOSE. Performed By: #### 8 [id number] #### [facility] [address] [place] [address], [facility] aPTT Coag (Bld) [Time] 44.9 s High 25.0-35.0 [facility] Comment on above: Order Comment: No: [...] THIS PURPOSE. Performed By: #### 5 7307, 96234 #### [facility] [address] [place] [address], [facility] BASIC METABOLIC PANELon 06-27 Calcium [Mass/Vol] 8.6 mg/dL Normal 8.6-10.3 [facility] Comment on above: Order Comment: No: D o not add to previous draw Performed By: #### 8 [id number] #### [facility] [address] [place] [address], [facility] Chloride [Moles/Vol] 102 mmol/L Normal 98-107 [facility] Comment on above: Order Comment: No: D o not add to previous draw Performed By: #### 8 [id number] #### [facility] [address] [place] [address], [facility] CO2 [Moles/Vol] 24 mmol/L Normal 21-31 [facility] Comment on above: Order Comment: No: D o not add to previous draw Performed By: #### 8 5499 #### [facility] [address] [place] [id number], [facility] Creatinine [Mass/Vol] 3.44 mg/dL High 0.70-1.30 [facility] Comment on above: Order Comment: No: D o not add to previous draw Performed By: #### 8 5499 #### [facility] [address] [place] [id number], [facility] eGFR- 22 ml/min/1.73sq m Abnormal >60 [facility] Comment on above: Order Comment: No: D o not add to previous draw Performed By: #### 8 5499 #### [facility] [address] [place] [address], [place] eGFR- non- 18 ml/min/1.73sq m Abnormal >60 [facility] Comment on above: Order Comment: No: D o not add to previous draw Performed By: #### 8 5499 #### [facility] [address] [place] [address], [place] Glucose [Mass/Vol] 355 mg/dL High 70-100 [facility] Comment on above: Order Comment: No: D o not add to previous draw Performed By: #### 8 5499 #### [facility] [address] [place] [address], [facility] Potassium [Moles/Vol] 4.6 mmol/L Normal 3.5-5.1 [facility] Comment on above: Order Comment: No: D o not add to previous draw Performed By: #### 8 [id number] #### [facility] [address] [place] [address], [place] Sodium [Moles/Vol] 133 mmol/L Low 136-145 [facility] Comment on above: Order Comment: No: D o not add to previous draw Performed By: #### 8 5499 #### [facility] [address] [place] [address], [place] Urea nitrogen [Mass/Vol] 27 mg/dL High 7-25 [facility] Comment on above: Order Comment: No: D o not add to previous draw Performed By: #### 8 [id number] #### [facility] [address] [place] [address], [place] BNP (B-TYPE NATRIURETIC PEPT RAYNE)on 07-14-2020 Natriuretic peptide B (Bld) [Mass/Vol] 19 pg/mL Normal 0-100 [facility] Comment on above: Order Comment: Left Peural Effusion Result Comment: Give n the appropriate clinical setting a BNP result of >100 pg/mL indicates congestive heart failure. Performed By: #### 3 0318 #### [facility] [address] CBC COMPLETE BLOOD COUNTon 0 - Erythrocyte distribution width (RBC) [Ratio] 14.6 % Normal 11.5-15.0 [facility] Comment on above: Order Comment: No: D o not add to previous draw Performed By: #### 8 [id number] #### [facility] [address] [place] [address], [facility] Hematocrit (Bld) [Volume fraction] 35.3 % Low 39.0-50.0 [facility] Comment on above: Order Comment: No: D o not add to previous draw Performed By: #### 8 [id number] #### [facility] [address] [place] [address], [facility] Hemoglobin (Bld) [Mass/Vol] 11.1 g/dL Low 13.0-17.0 [facility] Comment on above: Order Comment: No: D o not add to previous draw Performed By: #### 8 [id number] #### [facility] [address] [place] [address], [facility] MCH (RBC) [Entitic mass] 27.5 pg Normal 27.0-33.0 [facility] Comment on above: Order Comment: No: D o not add to previous draw Performed By: #### 8 [id number] #### [facility] [address] [place] [id number], [facility] MCHC (RBC) [Mass/Vol] 31.4 g/dL Low 32.0-35.0 [facility] Comment on above: Order Comment: No: D o not add to previous draw Performed By: #### 8 [id number] #### [facility] [address] [place] [address], [facility] MCV (RBC) [Entitic vol] 87.6 fL Normal 82.0-98.0 [facility] Comment on above: Order Comment: No: D o not add to previous draw Performed By: #### 8 [id number] #### [facility] [address] [place] [address], [facility] Nucleated RBC/100 WBC (Bld) [Ratio] 0 % Normal 0-0 [facility] Comment on above: Order Comment: No: D o not add to previous draw Performed By: #### 8 [id number] #### [facility] [address] [place] [address], [facility] PLAT CNT 325 10*3/uL Normal 150-400 [facility] Comment on above: Order Comment: No: D o not add to previous draw Performed By: #### 8 [id number] #### [facility] [address] [place] [address], [facility] RBC (Bld) [#/Vol] 4.03 10*6/uL Low 4.20-5.70 [facility] Comment on above: Order Comment: No: D o not add to previous draw Performed By: #### 8 [id number] #### [facility] [address] [place] [address], [facility] WBC (Bld) [#/Vol] 12.59 10*3/uL High 4.00-10.60 [facility] Comment on above: Order Comment: No: D o not add to previous draw Performed By: #### 8 [id number] #### [facility] [address] [place] [address], [facility] CBC W/DIFFon 07-14-2020 ABS IMM GRANS 0.2 10*3/uL Normal 0.0-0.2 [facility] Comment on above: Order Comment: No: D o not add to previous draw Performed By: #### 8 [id number] #### [facility] [address] [place] [address], [facility] ABS NEUTROPHILS 7.9 10*3/uL High 1.6-7.6 [facility] Comment on above: Order Comment: No: D o not add to previous draw Performed By: #### 8 [id number] #### [facility] [address] [place] [address], [place] Basophils (Bld) [#/Vol] 0.1 10*3/uL Normal 0.0-0.2 [facility] Comment on above: Order Comment: No: D o not add to previous draw Performed By: #### 8 [id number] #### [facility] [address] [place] [address], [facility] Basophils/100 WBC (Bld) 0.5 % Normal 0.0-1.0 [facility] Comment on above: Order Comment: No: D o not add to previous draw Performed By: #### 8 [id number] #### [facility] [address] [place] [address], [facility] Eosinophils (Bld) [#/Vol] 0.5 10*3/uL Normal 0.0-0.5 [facility] Comment on above: Order Comment: No: D o not add to previous draw Performed By: #### 8 [id number] #### [facility] [address] [facility] [place] [address], [facility] Eosinophils/100 WBC (Bld) 4.3 % Normal 0.0-6.0 [facility] Comment on above: Order Comment: No: D o not add to previous draw Performed By: #### 8 [id number] #### [facility] [address] [facility] [place] [address], [place] Erythrocyte distribution width (RBC) [Ratio] 14.6 % Normal 11.5-15.0 [facility] Comment on above: Order Comment: No: D o not add to previous draw Performed By: #### 8 [id number] #### [facility] [address] [facility] [place] [address], [facility] Hematocrit (Bld) [Volume fraction] 34.2 % Low 39.0-50.0 [facility] Comment on above: Order Comment: No: D o not add to previous draw Performed By: #### 8 [id number] #### [facility] [address] [place] [address], [facility] Hemoglobin (Bld) [Mass/Vol] 10.3 g/dL Low 13.0-17.0 [facility] Comment on above: Order Comment: No: D o not add to previous draw Performed By: #### 8 [id number] #### [facility] [address] [facility] [place] [address], [facility] IMMATURE GRANS 1.4 % High 0.0-1.0 [facility] Comment on above: Order Comment: No: D o not add to previous draw Performed By: #### 8 [id number] #### [facility] [address] [facility] [place] [address], [facility] Lymphocytes (Bld) [#/Vol] 1.3 10*3/uL Normal 1.2-4.0 [facility] Comment on above: Order Comment: No: D o not add to previous draw Performed By: #### 8 [id number] #### [facility] [address] [facility] [place] [address], [facility] Lymphocytes/100 WBC (Bld) 11.3 % Low 20.0-45.0 [facility] Comment on above: Order Comment: No: D o not add to previous draw Performed By: #### 8 [id number] #### [facility] [address] [facility] [place] [address], [facility] MCH (RBC) [Entitic mass] 27.0 pg Normal 27.0-33.0 [facility] Comment on above: Order Comment: No: D o not add to previous draw Performed By: #### 8 [id number] #### [facility] [address] [facility] [address] MCHC (RBC) [Mass/Vol] 30.1 g/dL Low 32.0-35.0 [facility] Comment on above: Order Comment: No: D o not add to previous draw Performed By: #### 8 [id number] #### [facility] [address] [place] [id number], [facility] MCV (RBC) [Entitic vol] 89.5 fL Normal 82.0-98.0 [facility] Comment on above: Order Comment: No: D o not add to previous draw Performed By: #### 8 [id number] #### [facility] [address] [place] [address], [facility] Monocytes (Bld) [#/Vol] 1.4 10*3/uL High 0.1-1.0 [facility] Comment on above: Order Comment: No: D o not add to previous draw Performed By: #### 8 [id number] #### [facility] [address] [place] [address], [facility] MONOS 12.6 % High 5.0-12.0 [facility] Comment on above: Order Comment: No: D o not add to previous draw Performed By: #### 8 [id number] #### [facility] [address] [facility] [place] [address], [facility] Neutrophils/100 WBC (Bld) 69.9 % Normal 40.0-72.0 [facility] Comment on above: Order Comment: No: D o not add to previous draw Performed By: #### 8 [id number] #### [facility] [address] [facility] [place] [address], [facility] Nucleated RBC/100 WBC (Bld) [Ratio] 0 % Normal 0-0 [facility] Comment on above: Order Comment: No: D o not add to previous draw Performed By: #### 8 [id number] #### [facility] [address] [place] [address], [facility] PLAT CNT 292 10*3/uL Normal 150-400 [facility] Comment on above: Order Comment: No: D o not add to previous draw Performed By: #### 8 [id number] #### [facility] [address] [place] [address], [facility] RBC (Bld) [#/Vol] 3.82 10*6/uL Low 4.20-5.70 [facility] Comment on above: Order Comment: No: D o not add to previous draw Performed By: #### 8 [id number] #### [facility] [address] [place] [address], [facility] WBC (Bld) [#/Vol] 11.28 10*3/uL High 4.00-10.60 [facility] Comment on above: Order Comment: No: D o not add to previous draw Performed By: #### 8 [id number] #### [facility] [address] [place] [address], [facility] COMP METABOLIC PANELon 07-14 Albumin [Mass/Vol] 3.1 g/dL Low 3.5-5.7 [facility] Comment on above: Order Comment: No: D o not add to previous draw Performed By: #### 8 [id number] #### [facility] [address] [place] [address], [facility] ALKALINE PHOSPH 77 IU/L Normal 34-104 [facility] Comment on above: Order Comment: No: D o not add to previous draw Performed By: #### 8 [id number] #### [facility] [address] [place] [address], [place] ALT [Catalytic activity/Vol] 8 U/L Normal 7-52 [facility] Comment on above: Order Comment: No: D o not add to previous draw Performed By: #### 8 [id number] #### [facility] [address] [place] [address], [place] AST [Catalytic activity/Vol] 11 U/L Low 13-39 [facility] Comment on above: Order Comment: No: D o not add to previous draw Performed By: #### 8 [id number] #### [facility] [address] [place] [address], [place] Bilirubin [Mass/Vol] 0.3 mg/dL Normal 0.3-1.0 [facility] Comment on above: Order Comment: No: D o not add to previous draw Performed By: #### 8 [id number] #### [facility] [address] [place] [address], [place] Calcium [Mass/Vol] 8.8 mg/dL Normal 8.6-10.3 [facility] Comment on above: Order Comment: No: D o not add to previous draw Performed By: #### 8 [id number] #### [facility] [address] [place] [address], [place] Chloride [Moles/Vol] 101 mmol/L Normal 98-107 [facility] Comment on above: Order Comment: No: D o not add to previous draw Performed By: #### 8 [id number] #### [facility] [address] [place] [address], [place] CO2 [Moles/Vol] 22 mmol/L Normal 21-31 [facility] Comment on above: Order Comment: No: D o not add to previous draw Performed By: #### 8 [id number] #### [facility] [address] [place] [address], [place] Creatinine [Mass/Vol] 3.38 mg/dL High 0.70-1.30 [facility] Comment on above: Order Comment: No: D o not add to previous draw Performed By: #### 8 [id number] #### [facility] [address] [place] [address], [place] eGFR- 23 ml/min/1.73sq m Abnormal >60 [facility] Comment on above: Order Comment: No: D o not add to previous draw Performed By: #### 8 [id number] #### [facility] [address] [place] [address], [place] eGFR- non- 19 ml/min/1.73sq m Abnormal >60 [facility] Comment on above: Order Comment: No: D o not add to previous draw Performed By: #### 8 [id number] #### [facility] [address] [place] [address], [place] Glucose [Mass/Vol] 324 mg/dL High 70-100 [facility] Comment on above: Order Comment: No: D o not add to previous draw Performed By: #### 8 [id number] #### [facility] [address] [place] [address], [place] Potassium [Moles/Vol] 4.5 mmol/L Normal 3.5-5.1 [facility] Comment on above: Order Comment: No: D o not add to previous draw Performed By: #### 8 [id number] #### [facility] [address] [place] [address], [place] Protein [Mass/Vol] 6.7 g/dL Normal 6.0-8.3 [facility] Comment on above: Order Comment: No: D o not add to previous draw Performed By: #### 8 [id number] #### [facility] [address] [place] [address], [place] Sodium [Moles/Vol] 131 mmol/L Low 136-145 [facility] Comment on above: Order Comment: No: D o not add to previous draw Performed By: #### 8 [id number] #### [facility] [address] [place] [address], [place] Urea nitrogen [Mass/Vol] 27 mg/dL High 7-25 [facility] Comment on above: Order Comment: No: D o not add to previous draw Performed By: #### 8 [id number] #### [facility] [address] [place] [address], [place] CREATININE URINE RANDOMon 03 -18-2021 Creatinine (U) [Mass/Vol] 101.0 mg/dL Normal [facility] Comment on above: Order Comment: No: D o not add to previous draw Result Comment: Ther e are no established reference values for random urine specimens Performed By: #### 8 [id number] #### [facility] [address] [place] [address], [facility] FLUID CELL COUNTon 1 Basophils/100 WBC (Bld) 1 % Normal [facility] Comment on above: Performed By: #### 8 [id number] #### [facility] [address] [place] [address], [facility] Eosinophils/100 WBC (Bld) 11 % Normal [facility] Comment on above: Performed By: #### 8 [id number] #### [facility] [address] [place] [address], [facility] Lymphocytes/100 WBC (Bld) 49 % Normal [facility] Comment on above: Performed By: #### 8 [id number] #### [facility] [address] [place] [address], [facility] MESOTHELIAL 12 % Normal [facility] Comment on above: Performed By: #### 8 [id number] #### [facility] [address] [place] [address], [facility] OTHER F1 Diff done by cytospin Normal [facility] Comment on above: Performed By: #### 8 [id number] #### [facility] [address] [place] [address], [facility] OTHER F3 Checked by Mac Rodriguez M.D. Normal [facility] Comment on above: Result Comment: Resu lt changed by THUERR on 07/15/2020 13:33. The previous value was Preliminary report; verified report to follow. Performed By: #### 8 [id number] #### [facility] [address] [place] [address], [place] RBC [address]199 RBC/uL Normal [facility] Comment on above: Performed By: #### 8 [id number] #### [facility] [address] [place] [address], [facility] SEGS 27 % Normal [facility] Comment on above: Performed By: #### 8 [id number] #### [facility] [address] [place] [address], [facility] SOURCE Thoracentesis Normal [facility] Comment on above: Performed By: #### 8 [id number] #### [facility] [address] [place] [address], [facility] TOTAL VOLUME 1L Normal [facility] Comment on above: Performed By: #### 8 [id number] #### [facility] [address] [place] [address], [facility] WBC 1762 WBC/uL Normal [facility] Comment on above: Result Comment: Some reference interval(s) and other method performance specifications have not been established for analytes on this body fluid. The test result must be integrated into the clinical context for interpretation. Performed By: #### 8 [id number] #### [facility] [address] [place] [address], [facility] GLUCOSE FLUID MISCon 021 Glucose [Mass/Vol] 326 mg/dL Normal [facility] Comment on above: Result Comment: The reference range and other method performance specifications have not been established for this test in fluids. the test result should be integrated into the clinical context for interpretation. Performed By: #### 3 1944 #### [facility] [address] [place] [address], [facility] HEMOGLOBIN A1Con 07-14-2020 Glucose [Moles/Vol] 295 mmol/L Normal [facility] Comment on above: Order Comment: Left Peural Effusion Performed By: #### 3 0318 #### [facility] [address] [place] [address], [facility] HbA1c (Bld) [Mass fraction] 11.9 % High 4.0-6.0 [facility] Comment on above: Order Comment: Left Peural Effusion Performed By: #### 3 [id number] #### [facility] [address] HEPATITIS B SURFACE ANTIGEN QUALon 07-14-2020 HEP B SURF AG QUAL Non-Reactive Normal NONREACTIVE [facility] Comment on above: Order Comment: No: D o not add to previous draw Performed By: #### 3 1943 #### [facility] [address] [place] [address], [facility] HEPATITIS C ANTIBODYon 07-14 ANTI-HCV Non-Reactive Normal NONREACTIVE [facility] Comment on above: Order Comment: No: D o not add to previous draw Performed By: #### 3 4 #### [facility] [address] [place] [address], [facility] LDH BLOODon 07-14-2020 LDH 176 Units/L Normal 140-271 [facility] Comment on above: Order Comment: Left Peural Effusion Performed By: #### 3 [id number] #### [facility] [address] [place] [address], [facility] LDH 133 Units/L Low 140-271 [facility] Comment on above: Order Comment: No: D o not add to previous draw Performed By: #### 8 [id number] #### [facility] [address] [place] [address], [facility] LDH FLUIDon 07-14-2020 LDH 212 Units/L Normal [facility] Comment on above: Result Comment: The reference range and other method performance specifications have not been established for this test in fluids. the test result should be integrated into the clinical context for interpretation. Performed By: #### 3 4 #### [facility] [address] [place] [address], [facility] LIPID PROFILEon 07-14-2020 Cholesterol [Mass/Vol] 95 mg/dL Low 120-200 [facility] Comment on above: Order Comment: No: D o not add to previous draw Result Comment: CHOL ESTEROL REFERENCE RANGE: 20 YEARS AND OLDER CARDIOVASCULAR RISK Less than 200 mg/dl Low Risk 200 to 239 mg/dl Borderline Risk 240 mg/dl and greater High Risk Performed By: #### 8 [id number] #### [facility] [address] [place] [address], [place] Cholesterol in HDL [Mass/Vol] 36 mg/dL Normal 23-92 [facility] Comment on above: Order Comment: No: D o not add to previous draw Result Comment: Slig ht variation in normal range could be due to gender and/or age. HDL CHOLESTEROL REFERENCE RANGE: 20 years and older Cardiovascular Risk > or =60 mg/dL Desirable 40 TO 59 mg/dL Low Risk <40 mg/dL High Risk Performed By: #### 8 [id number] #### [facility] [address] [place] [address], [place] Cholesterol in LDL [Mass/Vol] 37 mg/dL Normal 0-130 [facility] Comment on above: Order Comment: No: D o not add to previous draw Result Comment: LDL IS A CALCULATION LDL IS ONLY VALID IF THE TRIG IS LESS THAN 400. Performed By: #### 8 [id number] #### [facility] [address] [place] [address], [place] Cholesterol.total/Ch olesterol in HDL [Mass ratio] 2.6 {ratio} Normal 0.0-4.5 [facility] Comment on above: Order Comment: No: D o not add to previous draw Performed By: #### 8 [id number] #### [facility] [address] [place] [address], [place] NON-HDL CHOLESTEROL 59 mg/dL Normal [facility] Comment on above: Order Comment: No: D o not add to previous draw Performed By: #### 8 [id number] #### [facility] [address] [place] [address], [place] Triglyceride [Mass/Vol] 109 mg/dL Normal 40-149 [facility] Comment on above: Order Comment: No: D o not add to previous draw Result Comment: TRIG LYCERIDE REFERENCE RANGE: 20 YEARS AND OLDER CARDIOVASCULAR RISK LESS THAN 150 mg/dl LOW RISK 150 TO 199 mg/dl BORDERLINE RISK 200 mg/dl AND GREATER HIGH RISK Performed By: #### 8 [id number] #### [facility] [address] [place] [address], [place] VLDL CHOL 22 mg/dL Normal 0-40 [facility] Comment on above: Order Comment: No: D o not add to previous draw Performed By: #### 8 [id number] #### [facility] [address] [place] [address], [place] MAGNESIUM BLOODon 07-14-2020 Magnesium [Mass/Vol] 2.1 mg/dL Normal 1.9-2.7 [facility] Comment on above: Order Comment: No: D o not add to previous draw Performed By: #### 8 [id number] #### [facility] [address] [place] [address], [place] Magnesium [Mass/Vol] 2.0 mg/dL Normal 1.9-2.7 [facility] Comment on above: Performed By: #### 8 [id number] #### [facility] [address] [place] [address], [place] PHOSPHORUS BLOODon Phosphate [Mass/Vol] 4.1 mg/dL Normal 2.5-5.0 [facility] Comment on above: Order Comment: No: D o not add to previous draw Performed By: #### 8 [id number] #### [facility] [address] [place] [address], [place] Phosphate [Mass/Vol] 4.0 mg/dL Normal 2.5-5.0 [facility] Comment on above: Performed By: #### 8 [id number] #### [facility] [address] [place] [address], [place] POC GLUCOSE LABon 07-14-2020 Glucose [Mass/Vol] 180 mg/dL High 70-100 [facility] Comment on above: Performed By: #### 8 [id number] ####[facility] [facility] [address], [place] Glucose [Mass/Vol] 198 mg/dL High 70-100 [facility] Comment on above: Performed By: #### 5 7307, 47[address] #### [facility] [address] [facility] [place] [address], [place] Glucose [Mass/Vol] 265 mg/dL High 70-100 [facility] Comment on above: Performed By: #### 8 [id number] #### [facility] [address] [facility] [place] [place] [address], [place] Glucose [Mass/Vol] 305 mg/dL High 70-100 [facility] Comment on above: Performed By: #### 5 7307, 15876 #### [facility] [address] [facility] [address], [place] Glucose [Mass/Vol] 301 mg/dL High 70-100 [facility] Comment on above: Performed By: #### 5 0103 #### [facility] [address] [facility] [address], [facility] PORTABLE CHEST 1 VIEW 06-27 PORTABLE CHEST 1 VIEW [facility] Department of Radiology [address] [place] [id number] Patient Name: RASHARD LYMAN : 1960 Sex: M Age: Race: White Pt. Location: [address] [place] [address] Patient Status: I Ordered Date: 07/14/2020 1:40:00 [...] above Electronically signed: Patricia Damon. Transcribed by: [email or web address], User Resident: Electronically Signed by: PATRICIA DAMON @ 07/14/2020 03:24 PM Normal [facility] Comment on above: Order Comment: Evalu ate for Pneumothorax PORTABLE CHEST 1 VIEW [facility] Department of Radiology [address] [place] [id number] Patient Name: RASHARD LYMAN : 1960 Sex: M Age: Race: White Pt. Location: [address] [place] [address] Patient Status: I Ordered Date: 07/13/2020 11:35:00 [...] reports Electronically signed: Valdemar Foster. Transcribed by: [email or web address], User Resident: [email or web address] Electronically Signed by: VALDEMAR FOSTER @ 07/14/2020 06:31 AM I personally read this/these film(s) with this resident Normal [facility] Comment on above: Order Comment: evalu ate for Effusion PROTEIN ELECT Truong 07-14-2020 Protein [Mass/Vol] 6.0 g/dL Normal 6.0-8.3 [facility] Comment on above: Performed By: #### 3 0318 #### [facility] [address] [place] [address], [facility] PROTEIN ELECT Normal [facility] Comment on above: Result Comment: Decr eased albumin and elevated alpha 1 and 2 suggests acute inflammation. Performed By: #### 3 0318 #### [facility] [address] [place] [address], [place] PROTEIN ELECT URon 03-18-202 1 PROTEIN ELECT Urine protein electrophoresis suggests a nonselective nephropathy. Normal [facility] Comment on above: Performed By: #### 3 1944 #### [facility] [address] [facility] [place] [address], [facility] PROTEIN TOTAL BLOODon 2020 Protein [Mass/Vol] 6.7 g/dL Normal 6.0-8.3 [facility] Comment on above: Order Comment: Left Peural Effusion Performed By: #### 3 0318 #### [facility] [address] [facility] [place] [address], [facility] PROTHROMBIN TIMEon INR Coag (PPP) [Relative time] 1.12 {INR} Normal 0.91-1.16 [facility] Comment on above: Order Comment: No: [...] CHEST 1995;[id number]. Performed By: #### 5 7307, [id number] #### [facility] [address] [place] [address], [facility] PT Coag (PPP) [Time] 14.4 s Normal 12.3-14.8 [facility] Comment on above: Order Comment: No: D o not add to previous draw Result Comment: ALL RESULTS MUST BE INTERPRETED WITH RESPECT TO BLOOD DRAWING ARTIFACT OR DILUTION ERROR OF ANTICOAGULANT AT THE TIME OF SAMPLING. Performed By: #### 5 7307, [id number] #### [facility] [address] [place] [address], [facility] SEDIMENTATION RATEon 021 SED RATE 32 mm/hr High 0-10 [facility] Comment on above: Performed By: #### 8 [id number] #### [facility] [address] [place] [address], [facility] SODIUM URINE RANDOMon 2020 Sodium (U) [Moles/Vol] 59 mmol/L Normal [facility] Comment on above: Order Comment: No: D o not add to previous draw Result Comment: Ther e are no established reference values for random urine specimens Performed By: #### 8 [id number] #### [facility] [address] [place] [address], [facility] T PROT FLUIDon 07-14-2020 Protein [Mass/Vol] 3.6 g/dL Normal [facility] Comment on above: Result Comment: The reference range and other method performance specifications have not been established for this test in fluids. the test result should be integrated into the clinical context for interpretation. Performed By: #### 3 1944 #### [facility] [address] [place] [address], [facility] T PROT UR Loretta 07-14-2020 U TOTAL PROTEIN 859.0 mg/dL Normal [facility] Comment on above: Order Comment: No: D o not add to previous draw Result Comment: Ther e are no established reference values for random urine specimens Performed By: #### 8 [id number] #### [facility] [address] [place] [address], [facility] Performed By: #### 3 [id number] #### [facility] [address] [place] [address], [facility] TROPONIN-Ion 03-18-2021 Troponin I.cardiac [Mass/Vol] 0.09 ng/mL High 0.00-0.04 [facility] Comment on above: Order Comment: No: D o not add to previous draw Result Comment: REFE RENCE RANGES: 0.00 - 0.04 ng/ml NORMAL 0.05 - 0.50 ng/ml INDETERMINATE > 0.50 ng/ml CONSISTENT WITH AN M.I. Performed By: #### [id number] #### [facility] [address] [facility] [place] [address], [facility] Troponin I.cardiac [Mass/Vol] 0.07 ng/mL High 0.00-0.04 [facility] Comment on above: Order Comment: No: D o not add to previous draw Result Comment: REFE RENCE RANGES: 0.00 - 0.04 ng/ml NORMAL 0.05 - 0.50 ng/ml INDETERMINATE > 0.50 ng/ml CONSISTENT WITH AN M.I. Performed By: #### 8 [id number] #### [facility] [address] [facility] [place] [address], [facility] TSH3on 07-14-2020 TSH 3RD GENERATION 3.28 uIU/mL Normal 0.34-5.60 [facility] Comment on above: Order Comment: No: D o not add to previous draw Performed By: #### 8 [id number] #### [facility] [address] [facility] [place] [address], [facility] URIC ACID BLOODon 07-14-2020 Urate [Mass/Vol] 7.1 mg/dL Normal 4.4-7.6 [facility] Comment on above: Performed By: #### 8 [id number] #### [facility] [address] [facility] [address], [facility] URINALYSIS REFLEXon 07-15-19 21 Appearance (U) SL CLOUDY Abnormal CLEAR [facility] Comment on above: Order Comment: Left Peural Effusion Performed By: #### 3 [id number] #### [facility] [address] [facility] [place] [address], [facility] Bilirubin Ql (U) Negative Normal NEGATIVE [facility] Comment on above: Order Comment: Left Peural Effusion Performed By: #### 3 [id number] #### [facility] [address] [place] [address], [facility] Color (U) YELLOW Normal YELLOW [facility] Comment on above: Order Comment: Left Peural Effusion Performed By: #### 3 [id number] #### [facility] [address] [place] [address], [facility] EPIS FEW Normal FEW,OCC,NONE SEEN [facility] Comment on above: Order Comment: Left Peural Effusion Performed By: #### 3 [id number] #### [facility] [address] [facility] [place] [address], [facility] Glucose Ql (U) >=500 Abnormal NEGATIVE [facility] Comment on above: Order Comment: Left Peural Effusion Performed By: #### 3 [id number] #### [facility] [address] [facility] [place] [address], [facility] Hemoglobin Ql (U) TRACE Abnormal NEGATIVE [facility] Comment on above: Order Comment: Left Peural Effusion Performed By: #### 3 [id number] #### [facility] [address] [facility] [place] [address], [facility] KETONE TRACE Abnormal NEGATIVE [facility] Comment on above: Order Comment: Left Peural Effusion Performed By: #### 3 [id number] #### [facility] [address] [facility] [place] [address], [facility] LEUK JACIEL Negative Normal NEGATIVE [facility] Comment on above: Order Comment: Left Peural Effusion Performed By: #### 3 [id number] #### [facility] [address] [facility] [place] [address], [facility] MUCUS THREADS OCC Abnormal NONE SEEN [facility] Comment on above: Order Comment: Left Peural Effusion Performed By: #### 3 [id number] #### [facility] [address] [place] [address], [place] Nitrite Ql (U) Negative Normal NEGATIVE [facility] Comment on above: Order Comment: Left Peural Effusion Performed By: #### 3 [id number] #### [facility] [address] [place] [address], [facility] pH (U) 6.0 [pH] Normal 5.0-8.0 [facility] Comment on above: Order Comment: Left Peural Effusion Performed By: #### 3 [id number] #### [facility] [address] [place] [address], [facility] Protein Ql (U) >=500 Abnormal NEGATIVE [facility] Comment on above: Order Comment: Left Peural Effusion Performed By: #### 3 [id number] #### [facility] [address] [place] [address], [facility] RBC 0-2 Abnormal NONE SEEN [facility] Comment on above: Order Comment: Left Peural Effusion Performed By: #### 3 [id number] #### [facility] [address] [place] [address], [facility] SPEC GRAV 1.017 Normal 1.015-1.020 [facility] Comment on above: Order Comment: Left Peural Effusion Performed By: #### 3 [id number] #### [facility] [address] [facility] [place] [address], [facility] WBC UA 3-5 Abnormal NONE SEEN [facility] Comment on above: Order Comment: Left Peural Effusion Performed By: #### 3 [id number] #### [facility] [address] [facility] [place] [address], [facility] Vital Signs Date Time Vital Sign Value Performing Clinician Facility 01-19-2025 21:28-0400 Body height 193 cm [employer] Work Phone: [facility] 01-19-2025 21:28-0400 Body mass index (BMI) [Ratio] 29.9 kg/m2 [employer] Work Phone: [facility] 01-19-2025 21:28-0400 Body temperature 98.1 [degF] Colton Furlong DO Work Phone: [facility] 01-19-2025 21:28-0400 Body weight 111.4 kg Colton Furlong DO Work Phone: [facility] 01-19-2025 21:28-0400 Diastolic blood pressure 86 mm[Hg] Colton Furlong DO Work Phone: [facility] 01-19-2025 21:28-0400 Heart rate 77 /min Colton Furlong DO Work Phone: [facility] 01-19-2025 21:28-0400 Respiratory rate 18 /min Colton Furlong DO Work Phone: [facility] 01-19-2025 21:28-0400 SaO2% (BldA) [Mass fraction] 99 % Colton Furlong DO Work Phone: [facility] 01-19-2025 21:28-0400 Systolic blood pressure 132 mm[Hg] Colton Furlong DO Work Phone: [facility] 01-15-2025 13:22-0400 Diastolic blood pressure 57 mm[Hg] Chino Elliott DPM Work Phone: [facility] 01-15-2025 13:22-0400 Heart rate 80 /min Chino Kenya DPM Work Phone: [facility] 01-15-2025 13:22-0400 Respiratory rate 20 /min Chino Kenya DPM Work Phone: [facility] 01-15-2025 13:22-0400 SaO2% (BldA) [Mass fraction] 100 % Chino Kenya DPM Work Phone: [facility] 01-15-2025 13:22-0400 Systolic blood pressure 97 mm[Hg] Chino Kenya DPM Work Phone: [facility] 01-15-2025 09:10-0400 Body temperature 97.8 [degF] Chino Elliott DPM Work Phone: [facility] 01-15-2025 05:33-0400 Body weight 131.9 kg Chino Elliott DPM Work Phone: [facility] 01-14-2025 13:33-0400 Body height 193.04 cm Chino Elliott DPM Work Phone: [facility] 12-30-2024 14:32-0400 Body temperature 98.3 [degF] Chino Elliott DPM Work Phone: [facility] 12-30-2024 14:32-0400 Diastolic blood pressure 76 mm[Hg] Chino Elliott DPM Work Phone: [facility] 12-30-2024 14:32-0400 Heart rate 80 /min Chino Elliott DPM Work Phone: [facility] 12-30-2024 14:32-0400 Respiratory rate 18 /min Chino Elliott DPM Work Phone: [facility] 12-30-2024 14:32-0400 SaO2% (BldA) [Mass fraction] 100 % Chino Elliott DPM Work Phone: [facility] 12-30-2024 14:32-0400 Systolic blood pressure 152 mm[Hg] Chino Elliott DPM Work Phone: [facility] 12-30-2024 06:00-0400 Body weight 108.2 kg Chino Elliott DPM Work Phone: [facility] 12-24-2024 12:55-0400 Body height 193.04 cm Chino Elliott DPM Work Phone: [facility] 12-24-2024 10:07-0400 Inhaled oxygen flow rate 7 L/min Chino Elliott DPM Work Phone: [facility] 02-27-2024 11:25-0400 Body height 193 cm Nima Lee MD Work Phone: [employer] 02-27-2024 11:25-0400 Body mass index (BMI) [Ratio] 28 kg/m2 Nima Lee MD Work Phone: [employer] 02-27-2024 11:25-0400 Body temperature 97.11 [degF] Nima [facility] 02-27-2024 11:25-0400 Body weight 104.33 kg Nima Lee MD Work Phone: [employer] 02-27-2024 11:25-0400 Diastolic blood pressure 80 mm[Hg] Nima Lee MD [facility] 02-27-2024 11:25-0400 Heart rate 78 /min Nima Lee MD Work [facility] 02-27-2024 11:25-0400 SaO2% (BldA) [Mass fraction] 98 % Nima Lee MD Work Phone: [employer] 02-27-2024 11:25-0400 Systolic blood pressure 130 mm[Hg] Nima Lee MD Work Phone: [employer] 03-21-2021 15:40-0500 Body height 193.04 cm Kike Pollack Other [employer] Other 03-21-2021 15:40-0500 Body mass index (BMI) [Ratio] 39.02 kg/m2 Kike Pollack Other [employer] Other 03-21-2021 15:40-0500 Body temperature 97.8 [degF] Kike Pollack Other [employer] Other 03-21-2021 15:40-0500 Body weight 145.42 kg Essam Elashi Other [employer] Other 03-21-2021 15:40-0500 Diastolic blood pressure 84 mm[Hg] Kike Pollack Other [employer] Other 03-21-2021 15:40-0500 Respiratory rate 18 /min Kike Pollack Other [employer] Other 03-21-2021 15:40-0500 SaO2% (BldA) [Mass fraction] 96 % Kike Pollack Other [employer] Other 03-21-2021 15:40-0500 Systolic blood pressure 137 mm[Hg] Kike Pollack Other [employer] Other 08-25-2020 12:24-0400 Heart rate 82 /min Jose Valone Work Phone: [facility] 08-25-2020 12:24-0400 Respiratory rate 20 /min Jose Valone Work Phone: [facility] 08-25-2020 11:17-0400 Body temperature 98.7 [degF] Jose Valone Work Phone: [facility] 08-25-2020 11:17-0400 Diastolic blood pressure 94 mm[Hg] Jose Valone Work Phone: [facility] 08-25-2020 11:17-0400 SaO2% (BldA) [Mass fraction] 96 % Jose Valone Work Phone: [facility] 08-25-2020 11:17-0400 Systolic blood pressure 183 mm[Hg] Jose Valone Work Phone: [facility] 08-25-2020 06:00-0400 Body weight 160.5 kg Jose Valone Work Phone: [facility] 08-19-2020 14:17-0400 Body height 193.04 cm Jose Valone Work Phone: [facility] 08-18-2020 21:22-0400 Body height 193.04 cm Jose Valone Work Phone: [facility] 08-18-2020 21:22-0400 Body mass index (BMI) [Ratio] 43.8 kg/m2 Jose Valone Work Phone: [facility] 08-18-2020 21:22-0400 Body temperature 97.6 [degF] Jose Valone Work Phone: [facility] 08-18-2020 21:22-0400 Body weight 163.3 kg Jose Valone Work Phone: [facility] 08-18-2020 21:22-0400 Diastolic blood pressure 80 mm[Hg] Jose Valone Work Phone: [facility] 08-18-2020 21:22-0400 Heart rate 105 /min Jose Valone Work Phone: [facility] 08-18-2020 21:22-0400 Respiratory rate 18 /min Jose Valone Work Phone: [facility] 08-18-2020 21:22-0400 SaO2% (BldA) [Mass fraction] 94 % Jose Valone Work Phone: [facility] 08-18-2020 21:22-0400 Systolic blood pressure 160 mm[Hg] Jose Valone Work Phone: [facility] Encounters Encounter Date Encounter Type Care Provider Facility Start: 01-19-2025 End: 01-24-2025 ambulatory Colton Lamb DO Work Phone: [facility] Comment on above: Unspecified trochant cameron fracture of right femur, subsequent encounter for closed fracture with routine healing (Primary Dx); Chronic obstructive pulmonary disease, unspecified COPD type ([facility]); End stage renal disease ([facility]); Dependence on renal dialysis; Peripheral vascular disease, unspecified; Acquired absence of left foot ([facility] Acquired absence of right foot ([facility] Type 2 diabetes mellitus with diabetic neuropathy, with long-term current use of insulin ([facility]); Hyperlipidemia, unspecified hyperlipidemia type; Gastroesophageal reflux disease, unspecified whether esophagitis present; Psoriasis, unspecified Start: 01-13-2025 Non-patient / Non-visit Clayton Cardenas MD -[facility] Work Phone: Start: 01-06-2025 Non-patient / Non-visit Aleta Camila GOOD -[facility] Work Phone: Start: 12-30-2024 Non-patient / Non-visit Clayton Cardenas MD -[facility] Work Phone: Start: 12-30-2024 End: 01-15-2025 Evaluation and management of inpatient Jose Juarez Facility:[facility] Start: 12-30-2024 Non-patient / Non-visit Raimundo Mcclure MD -[facility] Work Phone: Start: 12-23-2024 Patient encounter status Chino Elliott DPM Work Phone: [facility] Start: 12-23-2024 Non-patient / Non-visit Ari france MD -[facility] Work Phone: Start: 12-23-2024 Patient encounter status Ari green MD [facility] Start: 12-23-2024 Encounter for preprocedural cardiovascular examination Phillip Duran [facility] Start: 12-23-2024 End: 12-30-2024 Evaluation and management of inpatient Enrique Celia Facility:[facility] Start: 10-26-2024 End: 10-26-2024 [facility] Work Phone: Start: 10-26-2024 End: 10-26-2024 Departed Referred Chino Elliott DPM [facility] Start: 08-28-2024 End: 08-28-2024 [facility] Work Phone: Start: 08-28-2024 End: 08-28-2024 Departed Referred Chino Elliott DPM Work Phone: [facility] Start: 02-27-2024 End: 02-27-2024 Office outpatient visit 25 minutes Nima Lee MD Work Phone: [facility] Comment on above: 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 ([facility]) (Primary Dx) Start: 02-17-2024 End: 02-17-2024 ambulatory [facility] Start: 01-20-2024 End: 01-20-2024 ambulatory [facility] Start: 12-16-2023 End: 12-16-2023 ambulatory [facility] Start: 11-19-2023 End: 11-19-2023 ambulatory [facility] Start: 10-23-2023 End: 10-23-2023 ambulatory [facility] Start: 09-03-2023 End: 09-03-2023 ambulatory [facility] Start: 07-31-2023 End: 07-31-2023 ambulatory [facility] Start: 07-02-2023 End: 07-02-2023 ambulatory [facility] Start: 06-04-2023 End: 06-04-2023 ambulatory [facility] Start: 05-31-2023 End: 06-01-2023 ambulatory JUANCARLOS Coffman [facility] Start: 05-06-2023 End: 05-06-2023 ambulatory [facility] Start: 04-19-2023 End: 04-19-2023 ambulatory CHINO Hopson [facility] Start: 02-27-2023 End: 02-28-2023 ambulatory CHINO ELLIOTT [facility] Start: 09-11-2022 End: 09-12-2022 ambulatory CHINO ELLIOTT Facility:[facility] Start: 08-28-2022 End: 08-29-2022 [facility] Start: 08-24-2022 End: 08-25-[address] JOSE JUAREZ Facility:[facility] Start: 08-20-2022 End: 08-21-[address] JOSE JUAREZ Facility:[facility] Start: 08-19-2022 Encounter for preprocedural cardiovascular examination [facility] Start: 08-19-2022 Encounter for preprocedural laboratory examination [facility] Start: 08-19-2022 Encounter for preprocedural respiratory examination [facility] Start: 08-15-2022 End: 08-16-[address] JOSE JUAREZ Facility:[facility] Start: 08-15-2022 End: 08-16-2022 Encounter for preprocedural laboratory examination DR OJSE JUAREZ Facility:[facility] Start: 07-31-2022 End: 08-01-2022 ambulatory [...] Start: 02-02-2022 End: 02-03-2022 [facility] Start: 01-26-2022 End: 01-27-2022 [facility]ulatory [facility] Start: 01-18-2022 End: 01-19-2022 ambulatory [facility] Start: 01-15-2022 End: 01-15-2022 ambulatory PETER D [facility] Facility:[facility] Start: 01-12-2022 End: 01-13-2022 ambulatory [facility] Start: 01-10-2022 End: 01-11-2022 ambulatory [facility] Start: 01-02-2022 End: 01-03-2022 ambulatory [facility] Start: 12-25-2021 End: 12-26-2021 ambulatory [facility] Start: 12-21-2021 End: 12-22-2021 ambulatory SHAIKH Patricia VARGASMark Anthony Facility:[facility] Start: 12-18-2021 End: 12-19-2021 ambulatory [facility] Start: 12-15-2021 End: 12-16-2021 ambulatory [facility] Start: 12-11-2021 End: 12-12-2021 [facility]ulatory [facility] Start: 11-30-2021 End: 12-01-[address] CARLOS EDUARDO SU . Facility:[facility] Start: 11-22-2021 End: 11-23-[address] CARLOS EDUARDO SU . Facility:[facility] Start: 11-21-2021 End: 11-22-2021 ambulatory CHINO ELLIOTT Facility:[facility] Start: 11-14-[address] CARLOS EDUARDO SU . Faci lity:[facility]1 Start: 11-13-2021 End: 11-14-2021 ambulatory [facility] Start: 11-07-2021 End: 11-08-2021 ambulatory CHINO ELLIOTT Facility:[facility] Start: 10-31-2021 End: 11-01-2021 ambulatory [facility] Start: 10-24-2021 End: 10-25-2021 ambulatory [facility] Start: 10-17-2021 End: 10-18-2021 ambulatory CHINO ELLIOTT Facility:[facility] Start: 10-09-2021 End: 10-10-2021 ambulatory [facility] Start: 03-21-2021 End: 03-21-2021 ambulatory Kike Pollack Other [employer] Other Start: 03-21-2021 Office outpatient vi sit 25 minutes Kike Pollack [facility] Start: 10-20-2020 End: 10-21-2020 ambulatory UNKNOWN PROVIDER Facility:[facility] Start: 09-28-2020 End: 09-28-2020 Patient encounter procedure Jose Juarez Work Phone: -Respiratory Therapy Start: 09-06-2020 End: 09-06-2020 Patient encounter procedure Jose Juarez Work Phone: -Electrodiagnostics Start: 08-18-2020 End: 08-25-2020 Evaluation and management of inpatient Jose Juarez Work Phone: -[facility] Start: 07-13-2020 End: 07-22-2020 Evaluation and management of inpatient SAVANNAH REYNOLDS Facility:[facility] Procedures Date Procedure Procedure Detail Performing Clinician Start: 12-23-2024 Antibody screen Chino triplett Comment on above: Result Comment: PERF ORMED BY: [facility] [address] [place] [address] PATHOLOGIST [employer] CARLOS BIRMINGHAM M.D. Start: 05-06-2023 Microalbumin [Mass/v olume] in Urine [...] Detail Author Start: 02-10-2027 DTaP,Tdap and Td Vaccines (2 - Td or Tdap) DTaP,Tdap and Td Vaccines (2 - Td or Tdap) [employer] Start: 02-26-2025 Adult BMI Screening [facility] Start: 02-26-2025 Tobacco Screening [facility]ening [facility] Start: 01-15-2025 End: 01-15-2025 [facility] Start: 01-07-2025 [facility] Start: 12-30-2024 Referral to dried yeast supervisor [facility] Start: 12-30-2024 Hospital admission [facility] Start: 12-30-2024 Referral to clinical appliquer zigzag [facility] Start: 12-29-2024 [facility] Start: 12-28-2024 COVID-19 Vaccine ( season) COVID-19 Vaccine () [facility] Start: 12-28-2024 Influenza vaccination Influenza Vacc ine [facility] Start: 12-25-2024 Referral to rehabilitation physician [facility] Start: 12-23-2024 Referral to vascular surgeon [facility] Start: 12-23-2024 Referral to dried yeast supervisor [facility] Start: 12-23-2024 Consultation [facility] Start: 12-23-2024 Hospital admission [facility] Start: 10-26-2024 [facility] Start: 08-28-2024 [facility] Start: 05-06-2024 Urine screening for protein Urine Microalbumin [facility] Start: 02-27-2024 End: 02-26-2025 US.doppler Extremity arteries - bilateral for physiologic artery study Vas art doppler lwr bilat mult lev/PVR Vascular Ultrasound Routine Critical limb ischemia of left lower extremity with gangrene ([facility]) Expected: 02/27/2024, Expires: 02/26/2025 [employer] Work Phone: Comment on above: Expected: 02/27/2024 , Expires: 02/26/2025 Start: 12-29-2023 COVID-19 Vaccine ( season) COVID-19 Vaccine () [facility] Start: 12-29-2023 Influenza vaccination Influenza Vacc ine [facility] Start: 08-18-2020 Bacteria identified in Blood by Culture Blood Culture [facility] Start: 02-04-2010 Administration of varicella zoster vaccine Zoster (Shingles) Vaccine (1 of 2) [facility] Start: 02-04-1978 Adult BMI Follow Up Plan Adult BMI F ollow Up Plan [facility] Start: 02-04-1978 Adult BMI Screening Adult BMI Screen ing [facility] Start: 02-04-1978 Diabetic foot examination Diabetic Foot Exam [facility] Start: 1972 Depression Screening Depression Scre ening [facility] Start: 1972 Tobacco Screening Tobacco Screening [facility] Start: 1960 Glaucoma screening Diabetic Op hthalmology Exam [facility] Start: 1960 Statin Use: Cardiovascular Statin Use: Cardiovascular [facility] Start: 1960 Statin Use: Diabetic Statin Use: Katie betic [facility] Anion gap measurement [facility] Erythrocyte distribu tion width [Ratio] by Automated count [facility] Erythrocytes [#/volu me] in Blood [facility] Glomerular filtratio n rate [Volume Rate/Area] in Serum, Plasma or Blood by Creatinine [facility] Hematocrit [Volume Fraction] of Blood [facility] Hemoglobin [Mass/vol ume] in Blood [facility] Leukocytes [#/volume ] corrected for nucleated erythrocytes in Blood by Automated coun [facility] MCH [Entitic mass] b y Automated count [facility] MCHC [Mass/volume] b y Automated count [facility] MCV [Entitic volume] by Automated count [facility] Patient referral [facility] Platelet mean volume [Entitic volume] in Blood by Automated count [facility] Platelets [#/volume] in Blood [facility] Immunizations Immunization Date Immunization Notes Care Provider Fa cility 01-29-2020 influenza virus vacc ine, unspecified formulation Nima Lee MD Work Phone: [facility] 02-10-2017 tetanus toxoid, redu jennifer diphtheria toxoid, and acellular pertussis vaccine, adsorbed Nima Lee MD Work Phone: [facility] 05-27-2015 influenza, seasonal, injectable Kike Pollack Other [facility] 05-27-2015 pneumococcal polysaccharide vaccine, 23 valent Kike Pollack Other [facility] Payers Date Payer Category Payer Self-pay [id number] 2020 Unknown [id number] 2017 [employer] Blue Shie ld Managed Care - Other ANTH [id number]. 2.7.9.112945.505.315 1960 Unknown [id number] 2.16840.1.435387.3.579. 2.647 1960 Unknown [id number] 2.16840.1.674310.3.579. 2.732 1960 Unknown [id number] 2.16.840.1.428136.3.579. 2.593 1960 Unknown [id number] 2.16.840.1.547621.3.579. 2.593 1960 Unknown [id number] 2.16.840.1.573437.3.579. 2.593 1960 Unknown [id number] 2.16.840.1.660637.3.579. 2.593 1960 Unknown [id number] 2.16.840.1.249574.3.579. 2.593 1960 Unknown [id number] 2.16.840.1.220896.3.579. 2.593 1960 Unknown [id number] 2.16.840.1.141264.3.579. 2.593 1960 Unknown [id number] 2.16.840.1.240254.3.579. 2.593 1960 Unknown [id number] 2.16.840.1.524005.3.579. 2.593 1960 Unknown [id number] 2.16.840.1.022917.3.579. 2.593 1960 Unknown [id number] 2.16.840.1.183618.3.579. 2.593 1960 Unknown [id number] 2.16.840.1.610293.3.579. 2.593 1960 Unknown [id number] 2.16.840.1.457878.3.579. 2.593 1960 Unknown [id number] 2.16.840.1.797817.3.579. 2.593 1960 Unknown [id number] 2.16.840.1.763275.3.579. 2.593 1960 Unknown [id number] 2.16.840.1.378406.3.579. 2.593 1960 Unknown [id number] 2.16.840.1.394230.3.579. 2.593 1960 Unknown [id number] 2.16.840.1.356544.3.579. 2.593 1960 Unknown [id number] 2.16.840.1.446434.3.579. 2.593 1960 Unknown [id number] 2.16.840.1.410411.3.579. 2.593 1960 Unknown [id number] 2.16.840.1.966104.3.579. 2.593 1960 Unknown [id number] 2.16.840.1.031601.3.579. 2.593 1960 Unknown [id number] 2.16.840.1.889348.3.579. 2.593 1960 Unknown [id number] 2.16.840.1.229339.3.579. 2.593 1960 Unknown [id number] 2.16.840.1.175421.3.579. 2.593 1960 Unknown [id number] 2.16.840.1.818969.3.579. 2.593 1960 Unknown [id number] 2.16.840.1.099781.3.579. 2.593 1960 Unknown [id number] 2.16.840.1.809954.3.579. 2.593 1960 Unknown [id number] 2.16.840.1.068376.3.579. 2.593 1960 Unknown [id number] 2.16.840.1.544822.3.579. 2.593 1960 Unknown [id number] 2.16.840.1.782659.3.579. 2.593 1960 Unknown [id number] 2.16.840.1.992342.3.579. 2.593 1960 Unknown [id number] 2.16.840.1.792268.3.579. 2.593 1960 Unknown [id number] 2.16.840.1.871236.3.579. 2.593 1960 Unknown [id number] 2.16.840.1.192381.3.579. 2.593 1960 Unknown [id number] 2.16.840.1.757225.3.579. 2.593 1960 Unknown [id number] 2.16.840.1.734762.3.579. 2.593 1960 Unknown [id number] 2.16.840.1.647913.3.579. 2.593 1960 Unknown [id number] 2.16.840.1.892032.3.579. 2.593 1960 Unknown [id number] 2.16.840.1.725271.3.579. 2.593 1960 Unknown [id number] 2.16.840.1.470580.3.579. 2.593 1960 Unknown [id number] 2.16.840.1.689808.3.579. 2.593 1960 Unknown [id number] 2.16.840.1.073397.3.579. 2.593 1960 Unknown [id number] 2.16.840.1.249981.3.579. 2.593 1960 Unknown [id number] 2.16.840.1.251565.3.579. 2.1286 1960 Unknown [id number] 2.16.840.1.664242.3.579. 2.1286 1960 Unknown [id number] 2.16.840.1.328932.3.579. 2.1286 1960 Unknown [id number] 2.16.840.1.643920.3.579. 2.1286 1960 Unknown [id number] 2.16.840.1.415217.3.579. 2.1286 1960 Unknown [id number] 2.16.840.1.650421.3.579. 2.1286 1960 Unknown [id number] 2.16.840.1.755301.3.579. 2.1286 1960 Unknown [id number] 2.16.840.1.562559.3.579. 2.1286 1960 Unknown [id number] 2.16.840.1.269154.3.579. 2.1286 1960 Unknown [id number] 2.16.840.1.272748.3.579. 2.1286 1960 Unknown [id number] 2.16.840.1.677371.3.579. 2.1286 1959 Unknown [id number] Medicare Self Pay [id number] Medicare Medicare [id number] Unknown [id number] 2.16.840.1.109681.3.579. 2.531 Unknown [id number] 2.16.840.1.542751.3.579. 2.531 Social History Date Type Detail Facility Tobacco smoking stat [facility] Unknown if ever smoked [facility] Start: 1960 Sex Assigned At Male [facility] Start: 08-18-2020 Tobacco smoking stat [facility] Unknown if ever smoked [facility] Start: 08-22-2020 Tobacco smoking stat [facility] Never smoked tobacco (finding) [facility] Start: 06-09-2020 End: 02-27-[address] [facility] [employer] Other Start: 02-10-2017 End: 12-31-2024 Tobacco smoking status NHIS Ex-smoker [facility] End: 02-11-2016 History of tobacco use Current smoker [facility] End: 02-11-2016 History of tobacco use Cigarette Smoker [facility] Start: 02-10-2017 Tobacco use and exposure Smokeless tobacco non-user [facility] Start: 02-27-2024 Alcoholic beverage intake Current non-drinker of alcohol (finding) [facility] Start: 06-09-2020 End: 02-27-2024 History of Social function [facility] Start: 1960 Sex assigned at Not on file [facility] Start: 12-02-2014 End: 08-29-2024 [facility] (finding[facility] Start: 01-15-2025 SDOH Follow up SDOH Follow up [facility] Work Phone: Medical Equipment Procedure Code Equipment Code Equipment Origin al Text Equipment Identifier Dates ORIF, hip Orthopaedic fixa tion plate, non-bioabsorbable, sterile ()[id number] FDA Start: 12-24-2024 ORIF, hip Orthopaedic bone screw, non-bioabsorbable, non-sterile [id number] FDA Start: 12-24-2024 ORIF, hip Orthopaedic bone screw, non-bioabsorbable, non-sterile ()[id number] FDA Start: 12-24-2024 ORIF, hip Orthopaedic bone screw, non-bioabsorbable, non-sterile ()[id number] FDA Start: 12-24-2024 ORIF, hip Orthopaedic bone screw, non-bioabsorbable, non-sterile ()[id number] FDA Start: 12-24-2024 ORIF, hip Femur nail, sterile ()[id number] FDA Start: 12-24-2024 ORIF, hip Spiral blade [id number] FDA Start: 12-24-2024 Goals Date Patient Goal Desired Activity /State Functional Status Date Assessment Result Facility 08-25-2020 Functional status Patient at Baseline [facility] Mental Status Date Assessment Result Facility 08-25-2020 Cognitive function Cognitive Sta tus Patient at Baseline [facility] Clinical Notes 07-15-2020 to 01-19-2025 Colton Lamb DO - 01/19/2025 11:59 PM EDT Note Date & Type Note Facility 01-19-2025 History of Present illness Narrative Patient Name: Rashard Lyman Date of : 1960 Date of Service: 01/19/2025 Facility: [facility] [place] Type of Visit: Admission H&P Faviola Lyman is a 64 y.o. male [facility] H&PVaishali Munoz presents today from [facility] to [facility] for therapy. He has a fairly complex medical history. He recently fell and fractured his right hip. He had intensive inpatient therapy following his hospital stay [facility]. He requires physical therapy as he can not go home in his current condition. He has had multiple amputations of toes which affects his gait. He also has end-stage renal disease and is on dialysis. He takes multiple medications. He is having a lot of pain in his right hip and he has chronic pain in both feet due to diabetic neuropathy. He has had multiple amputations. He is using oxycodone 10 mg as needed for pain with fair improvement. His appetite is okay. He has no new concerns to discuss with me today. Past Medical History: Diagnosis Date Chronic kidney disease Chronic musculoskeletal pain COPD (chronic obstructive pulmonary disease) ([facility] Diabetes mellitus ([facility]) Fracture, clavicle History of MRSA (methicillin resistant Staphylococcus aureus) Neuropathy Renal failure Dialysis since 04/2014 Past Surgical History: Procedure Laterality Date APPENDECTOMY CHOLECYSTECTOMY DIALYSIS FISTULA CREATION Right arm INJECTION CAUDAL EPIDURAL WITH CATHETER, STEROID N/A 06/05/2019 Performed by Jefferson Bryant MD at [facility] Right 5th TONSILLECTOMY Family History Problem Relation Age of Onset Asthma Mother Allergies: Aspirin, Byetta [exenatide], Celebrex [celecoxib], and Synvisc [hylan g-f 20] Code Status: FULL CODE The following portions of the patient's history were reviewed and updated as appropriate: allergies, current medications, past family history, past medical history, past social history, past surgical history, problem list, and medication reconciliation was completed including current medication and post discharge medication. BP 132/86 Pulse 77 Temp 36.7 C (98.1 F) Resp 18 Ht 193 cm (6' 4 ) Wt 111.4 kg (245 lb 9.6 oz) SpO2 99% BMI 29.90 kg/m Physical Exam Vitals reviewed. Constitutional: General: He [...] Chronic obstructive pulmonary disease, unspecified COPD type ([facility]) 3. End stage renal disease ([facility]) 4. Dependence on renal dialysis 5. Peripheral vascular disease, unspecified 6. Acquired absence of left foot ([facility]) 7. Acquired absence of right foot ([facility]) 8. Type 2 diabetes mellitus with diabetic neuropathy, with long-term current use of insulin ([facility]) 9. Hyperlipidemia, unspecified hyperlipidemia type [...] Colton Lamb DO documented in this encounter [facility] 12-23-2024 Evaluation note Diagnosis Onset Date Resolution MARISOL (acute kidney injury) acute December 23, 2024 2:49am CKD (chronic kidney disease) stage 5, GFR less than 15 ml/min acute December 23 2:49am End-stage renal disease needing dialysis acute December 23 2:49am Hip fracture acute December 23, 2024 2:49am Hyperkalemia acute December 23, 2024 2:49am Hypertensive kidney disease with chronic kidney disease stage V acute December 232024 2:49am Intertrochanteric fracture of right hip acute December 23 2:49am Metabolic acidosis acute December 23, 2024 2:49am Pre-operative cardiovascular examination acute Augus t 2024 2:49am Psoriasis acute December 23, 2 025 2:49am Radius distal fracture acute Au marii 2024 2:49am Type 2 diabetes mellitus with diabetic chronic kidney disease acute December 23 2:49am COPD (chronic obstructive pulmonary disease) chronic December 23, 2024 2:49am Diabetes chronic December 23, 2 025 2:49am 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 chronic A ugust 2024 2:49am GERD (gastroesophageal reflux disease) chronic December 23 2:49am Hypertension chronic December 23, 2024 2:49am [facility] Work Phone: 1(424) 526-871008-27-2025 Evaluation note* Diagnosis Onset Date Resolution Status Admit Date MARISOL (acute kidney injury) acute December 23, 2024 2:49am CKD (chronic kidney disease) stage 5, GFR less than 15 ml/min acute December 23, 2024 2:49am End-stage renal disease need ing dialysis acute December 23 2:49am Hip fracture acute December 23, 2024 2:49am Hyperkalemia acute December 23, 2024 2:49am Hypertensive kidney disease with chronic kidney disease stage V acute A ugust 2024 2:49am Intertrochanteric fracture o f right hip acute December 23 2:49am Metabolic acidosis acute December 23, 2024 2:49am Pre-operative cardiovascular examination acute December 23 2:49am Psoriasis acute December 23, 2 025 2:49am Radius distal fracture acute Au marii 2024 2:49am 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 acute December 23, 2024 2:49am COPD (chronic obstructive pulmonary disease) chronic December 23, 2024 2:49am Diabetes chronic December 23, 2 025 2:49am 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 chronic A ugust 2024 2:49am GERD (gastroesophageal reflu x disease) chronic December 23 2:49am Hypertension chronic December 23, 2024 2:49am Anemia of renal disease acute S ep2024 4:06pm Diabetic neuropathy acute Septe mb2024 4:06pm End-stage renal disease need ing dialysis acute December 30, 025 4:06pm Hip fracture acute December 4:06pm Hypertensive kidney disease with chronic kidney disease stage V acute S epte2024 4:06pm Intertrochanteric fracture o f right hip acute December 30, 025 4:06pm Radius distal fracture acute Se ptember 2024 4:06pm 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 acute December 30, 2024 4:06pm COPD (chronic obstructive pulmonary disease) chronic December 4:06pm GERD (gastroesophageal reflu x disease) chronic December 30 025 4:06pm Hypertension chronic December 4:06pm [facility] Work Phone: 1([phone]) 242-462610-31-2024 Evaluation + Plan note* Assessment & Plan Note - Nima Lee MD - 02/27/2024 11:44 AM EDTAssociated Problem(s): Critical limb ischemia of left lower extremity with gangrene ([facility]) PVR [facility]10-31-2024 Miscellaneous Notes* Assessment & Plan Note - Nima Lee MD - 02/27/2024 11:44 AM EDTAssociated Problem(s): Critical limb ischemia of left lower extremity with gangrene (CMS-HCC) PVR [facility] History of Present illness Narrative* Nima Lee MD - 02/27/2024 11:20 AM EDT Images from the original note were not included. To: JOSE JUAREZ JR, DO HPI: Rashard Lyman is a 64 y.o. male with Left lower extremity TMA. He has a wound in his plantar surface that is nonhealing. Most recent vascular testing was done month ago or 11 months ago and he wasnormal. He does not have any recent testing. [...] puffs every 6 (six) hours as needed forwheezing. buPROPion SR (WELLBUTRIN SR) 150 mg 12 [...] tablet by mouth every 6 (six) hours asneeded for pain. (Patient not taking: Reported on [...] topically 2 (two) times a day. (Patient nottaking: Reported on 02/27/2024) varenicline (CHANTIX) 1 mg tablet Take 1 mg by mouth daily. Take with full glass of water. (Patient not taking: Reported on 02/27/2024) No current facility-administered medications on file prior to visit. Past Medical History: Past Medical History: Diagnosis Date Chronic kidney disease Chronic musculoskeletal pain COPD (chronic obstructive pulmonary disease) [place] Diabetes mellitus ([facility]) Fracture, clavicle History of MRSA (methicillin resistant Staphylococcus aureus) Neuropathy Renal failure Dialysis since 04/2014 Past Surgical History: Past Surgical History: Procedure Laterality Date APPENDECTOMY CHOLECYSTECTOMY DIALYSIS FISTULA CREATION Right arm INJECTION CAUDAL EPIDURAL WITH CATHETER, STEROID N/A 06/05/2019 Performed by Jefferson Bryant MD at [facility] Right 5th TONSILLECTOMY Social [...] Plan PVR Rashard was seen today for director outpatient services-foot wound- left- no testing. Diagnoses and all orders for this visit: Critical limb ischemia of left lower extremity with gangrene (CMS-HCC) Nima Lee MD, MISTY, RPVI, FSVS, FACS [facility] This note was created with the assistance of a speech recognition program. While intending to generate a timely document that accurately reflects the content of the visit, no guarantee can be provided that every grammatical or spelling mistake has been or will be identified or corrected. Thank you for your understanding. documented in this encounterOhio[facility] HospitalEmp[facility]04-24-2023 NotePROCEDURE: XR FOOT LT MIN 3 VIEWS HISTORY: [...] Electronically authenticated by: PRISCA SANDERSON Date: 2022-08-20 13:00[facility]04-19-2023 NoteEXAM: XR CHEST 2 V HISTORY: Pre-surgery evaluation [...] Electronically authenticated by: CHINO CABALLERO Date: 2022-08-15 15:06[facility]04-05-2023 NotePROCEDURE: XR FOOT LT MIN 3 VIEWS COMPARISON: 12/21/2021 HISTORY: Pain [...] Electronically authenticated by: JAMESON SALGUERO Date: 2022-08-01 07:49[facility]11-03-2022 NoteCONSULTATION CONSULTATION DATE: 03/01/2022 This is a 62-year-old [...] with certain activities such as standing, walking, groundman and evening hours, and changes in the [...] The patient agrees with the plan of care.[facility] [id number] NoteCONSULTATION PROCEDURE DATE: 03/01/2022 PREOPERATIVE DIAGNOSIS: Right lumbar [...] slow, fan-like pattern and patient tolerated procedure well.[facility] [id number] NotePROCEDURE: XR ANKLE LT MIN 3 V, XR [...] Electronically authenticated by: PRISCA SANDERSON Date: 2021-12-22 10:12[facility] [id number] NotePROCEDURE: XR ANKLE LT MIN 3 V, XR [...] Electronically authenticated by: PRISCA SANDERSON Date: 2021-12-22 10:[facility]08-26-2022 NotePROCEDURE: XR ANKLE LT MIN 3 V, XR [...] Electronically authenticated by: PRISCA SANDERSON Date: 2021-12-22 10:[facility]08-26-2022 NotePROCEDURE: XR ANKLE LT 2V HISTORY: Pain ; left ankle external fixation application COMPARISON: None. FINDINGS: BONES:3 intraoperative spot fluoroscopic images demonstrate external fixation device surrounding the left ankle. IMPRESSION: External fixation device application. Electronically authenticated by: PRISCA SANDERSON Date: 2021-12-22 10:[facility]08-16-2022 NotePROCEDURE: XR FOOT LT MIN 3 VIEWS HISTORY: Pain in left [...] Electronically authenticated by: PRISCA SANDERSON Date: 2021-12-12 08:04[facility]08-04-2022 NoteCONSULTATION The patient returns to the clinic after [...] followed up in clinic in three months' time.[facility] [id number] NoteCONSULTATION CONSULTATION DATE: 11/22/2021 HISTORY OF PRESENT ILLNESS: [...] will return to the clinic to receive those.[facility] [id number] NotePROCEDURE: XR FOOT LT MIN 3 VIEWS HISTORY: Pain in left [...] Electronically authenticated by: PRISCA SANDERSON Date: 2021-11-14 15:42[facility] [id number] NotePROCEDURE: XR FOOT LT MIN 3 VIEWS COMPARISON: 09/11/2021 HISTORY: Pain [...] Electronically authenticated by: JAMESON SALGUERO Date: 2021-11-07 19:28[facility]11-23-2021 Evaluation note* Encounter Date Diagnosis Assessment Notes Treatment Notes Treatment Clinical Notes Feb, CKD (chronic kidney disease) stage [...] some of his psychiatric medications. 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 Will reorder. Calcium, phosphorus and intact H were at target. Feb, Anemia in chronic ki dney disease (ICD-10 - D63.1) He has mild anemia of chronic kidney disease. Hemoglobin more than 10 g/dL. We will monitor every 3 to 4 months. Feb, Other Patient has dizziness with possible vertigo. He is really on meclizine. He takes midodrine as well as stated above. [employer] Other 03-27-2021 NoteMR#: [id number] I [facility] Pt. Name: Rashard Lyman Admitted: 07/13/2020 [...] chest pain. Also, there is mention on [place] records of large inferior/lateral wall abnormality in [...] ON DISCHARGE: A (more content not included)...[facility]03-19-2021 NoteMR#: [id number] [facility] Pt. Name: Rashard Lyman Surgery Date: 07/14/2020 Room #: 3AB [id number] Date of : 1960 PROCEDURE NOTE ATTENDING: [...] Pham MD Date Trans: 07/15/2020 01:32 P/ [id number] cc: Nima Wynne MD [address] [place] [address]-2021 NoteMR#: [id number] [facility] Pt. 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 COMPOSITOR: Davis hPam Indications: Nura Munoz is 60 year old [...] Wynne MD Date Trans: 07/15/2020 12:53 P/ [id number] [facility]* Diagnosis Onset Date Resolution Status Hyperglycemia acute Pneumonia acute Psoriasis acute 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 acute CKD (chronic kidney disease) stage 4, GFR 15-29 ml/min chronic COPD (chronic obstructive pulmonary disease) chronic 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 GERD (gastroesophageal reflux disease) chronic Obesities, morbid chronic Peripheral vascular occlusive disease chronic 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 Diagnosis Onset Date Resolution Status [...] (chronic obstructive pulmonary disease) chronic 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 GERD (gastroesophageal reflux disease) chronic Hypertension chronic [id number] chronic Obesities, morbid chronic Peripheral vascular occlusive disease chronic 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 [facility]* Diagnosis Critical limb ischemia of left lower extremity with gangrene ([facility] Primary [facility] this encounter [facility] noteNo assessment information available [facility] Work Phone: Evaluation note* Diagnosis Critical limb ischemia of left lower extremity with gangrene ([facility])- Primary Unspecified trochanteric fracture of right femur, subsequent encounter for closed fracture with routine healing- Primary Chronic obstructive pulmonary disease, unspecified COPD type (CMS-HCC) End stage renal disease ([facility]) End stage renal disease Dependence on renal dialysis Renal dialysis status Peripheral vascular disease, unspecified Acquired absence of left foot (CMS-HCC) Acquired absence of right foot ([facility]) Type 2 diabetes mellitus with diabetic neuropathy, with long-term current use of insulin ([facility]) Hyperlipidemia, unspecified hyperlipidemia type Gastroesophageal reflux disease, unspecified whether esophagitis present Psoriasis, unspecified documented in this encounter [facility] SystemHistory general Narrative - Reported* Type Description Date [...] HIS LOWER BACK Hospitalization History see above [employer] Other Hospital Discharge instructions Additional Instructions You are scheduled for an outpatient follow up ECHOCARDIOGRAM in 2 weeks at [facility] to re-assess your pericardial effusions [...] knee Educate on high risk fall precautions [facility] Dis[facility] instructionsK[facility]trHospital Discharge instructionsK[facility] InstructionsNot on filedocumented in this encounterProDayton Osteopathic [facility] System InstructionsNot on filedocumented in this encounterFayette County [facility] Hospital SystemReason for referral (narrative)No reason for referral information availableKet[facility] Health [facility]tr Work Phone: Assessments No Assessments Information Available Advance Directives No Advanced Directives Records Found Advance Directive Response Recorded Date/ Time Advance Directives No September 30 3:34pm Date Activated Date Inactivated Comments 09/30/2017 12:06 PM 09/30/2017 8:03 PM Date Activated Date Inactivated Comments 09/30/2017 12:06 [...] 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 GERD (gastroesophageal reflux disease) Hypertension [id number] Obesities, morbid Peripheral vascular occlusive disease Status [...] 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 GERD (gastroesophageal reflux disease) Hypertension [id number] Obesities, morbid Peripheral vascular occlusive disease Status [...] 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 GERD (gastroesophageal reflux disease) Hypertension [id number] Obesities, morbid Peripheral vascular occlusive disease Status post amputation of toe of right foot Chief Complaint Admit Date Unknown August 28, 2024 11:03a m Chief Complaint Admit Date Unknown August 28, 2024 11:03a m Unknown October 26, 2024 12:0 1pm Chief Complaint Admit Date Unknown October 26, 2024 12:0 1pm right hip fracture, renal failure, eleva keith tropon December 23, 2024 2:49am right hip fracture, renal failure, eleva keith tropon December 30, 2024 12:00am Reason for Visit Admit Date MARISOL (acute kidney injury) December 23, 2:49am CKD (chronic kidney disease) stage 5, GFR less than 15 ml/min December 23, 2024 2:49am End-stage renal disease needing dialysis December 23, 2024 2:49am Hip fracture December 23, 2024 2: 49am Hyperkalemia December 23, 2024 2: 49am Hypertensive kidney disease with chronic kidney disease stage V December 23, 2024 2:49am Intertrochanteric fracture of right hip December 23, 2024 2:49am Metabolic acidosis December 23, 2024 2: 49am Pre-operative cardiovascular examination December 23, 2024 2:49am Psoriasis December 23, 2024 2: 49am Radius distal fracture December 23, 2024 2:49am 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 December 23, 2024 2:49am COPD (chronic obstructive pulmonary dise ase) December 23, 2024 2:49am Diabetes December 23, 2024 2: 49am 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 December 23 2:49am GERD (gastroesophageal reflux disease) A ugust 2024 2:49am Hypertension December 23, 2024 2: 49am Chief Complaint Admit Date Unknown October 26, 2024 12:0 1pm right hip fracture, renal failure, isabell sheppard December 23, 2024 2:49am right hip fracture, renal failure, isabell sheppard December 30, 2024 12:00am RT IT Hip Fx s/p TFN/RT Distal Radius Fx s/p ORIF December 30, 2024 4:06pm RT IT Hip Fx s/p TFN/RT Distal Radius Fx s/p ORIF January 06, 2025 12:00am RT IT Hip Fx s/p TFN/RT Distal Radius Fx s/p ORIF January 13, 2025 12:00am Reason for Visit Admit Date MARISOL (acute kidney injury) December 23, 2 025 2:49am CKD (chronic kidney disease) stage 5, GFR less than 15 ml/min December 23, 2024 2:49am End-stage renal disease needing dialysis December 23, 2024 2:49am Hip fracture December 23, 2024 2: 49am Hyperkalemia December 23, 2024 2: 49am Hypertensive kidney disease with chronic kidney disease stage V December 23, 2024 2:49am Intertrochanteric fracture of right hip December 23, 2024 2:49am Metabolic acidosis December 23, 2024 2: 49am Pre-operative cardiovascular examination December 23, 2024 2:49am Psoriasis December 23, 2024 2: 49am Radius distal fracture December 23, 2024 2:49am 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 December 23, 2024 2:49am COPD (chronic obstructive pulmonary dise ase) December 23, 2024 2:49am Diabetes December 23, 2024 2: 49am 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 December 23 2:49am GERD (gastroesophageal reflux disease) A ugust 2024 2:49am Hypertension December 23, 2024 2: 49am Anemia of renal disease December 30 4:06pm Diabetic neuropathy December 30, 2024 4:06pm End-stage renal disease needing dialysis December 30, 2024 4:06pm Hip fracture December 30, 2024 4:06pm Hypertensive kidney disease with chronic kidney disease stage V December 30, 2024 4:06pm Intertrochanteric fracture of right hip December 30, 2024 4:06pm Radius distal fracture December 30 4:06pm 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 December 30, 2024 4:06pm COPD (chronic obstructive pulmonary dise ase) December 30, 2024 4:06pm GERD (gastroesophageal reflux disease) S eptember 2024 4:06pm Hypertension December 30, 2024 4:06pm Summary Purpose Family History Relationship Condition Age [...] and content) DATE CREATED AUTHOR 09/11/2020 [facility] DATE CREATED AUTHOR AUTHOR'S ORGANIZ ATION 10/21/2020 [facility] [employer] [facility] DATE CREATED AUTHOR AUTHOR'S ORGANIZ ATION 10/05/2022 [facility] DATE CREATED AUTHOR AUTHOR'S ORGANIZ ATION 06/03/2023 [facility] DATE CREATED AUTHOR AUTHOR'S ORGANIZ ATION 11/22/2023 [facility] DATE CREATED AUTHOR AUTHOR'S ORGANIZ ATION 02/18/2024 [facility] DATE CREATED AUTHOR AUTHOR'S ORGANIZ ATION 01/29/2025 [facility] Goals (unrecognized section and content) Goals may be documented in a n alternate sectionNo InformationNot on filedocumented as of this encounterGoals may be documented in an alternate sectionGoals may be documented in an alternate sectionGoals may be documented in an alternate sectionGoals may be documented in an alternate sectionNot on filedocumented as of this encounter REASON FOR VISIT (unrecogniz ed section and content) Reason Comments 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 Non healing. Care Teams (unrecognized sec tion and content) Team Status: Active Member Role Status Dates Jose Juarez JR DO Primary Care Provider Active Team Status: Inactive Member Role Status Dates Chino Elliott DPM MS Attending Provider Active Start: October 26, 2024 End: October 26, 2024 Team Status: Active Member Role Status Dates Jose Juarez JR DO Primary Care Provider Active Start: December 23, 2024 Enrique Yang MD Admit Provider Active Start: December 23, 2024 Leno Dela Cruz MD Other Provider Active Start: December 23, 2024 Carie Abraham MD Other Provider Active Start: [facility] 2024 Love Moody LPN Other Provider Active Star t: December 23, 2024 Ari Batista MD Attending Provider Active S tart: December 23, 2024 Ari Batista MD Other Provider Active Start : December 23, 2024 Alyssia Batista NP-C Other Provider Active St art: December 23, 2024 Nima Lee MD Other Provider Active Start : December 23, 2024 Benjamin Patterson MD Other Provider Active Start: December 23, 2024 Luis Enrique Arora MD Other Provider Active Start: A ugust 2024 Nir Shah II, MD Other Provider Active S tart: December 23, 2024 Clayton Cardenas MD Other Provider Active Start: A ugust 2024 Aleta Jensen APRN Other Provider Active St art: December 23, 2024 Doc Shankar MD Other Provider Active Start: December 23, 2024 Liza Rod MD Other Provider Active Start : December 23, 2024 Team Status: Active Member Role Status Dates Jose Juarez JR DO Primary Care Provider Active Start: December 30, 2024 Enrique Yang MD Admit Provider Active Start: December 30, 2024 Carie Abraham MD Other Provider Active Start: Se 2024 Love Moody LPN Other Provider Active Star t: December 30, 2024 Ari Batista MD Other Provider Active Start : December 30, 2024 Alyssia Batista , [employer]OCIATE-C Other Provider Active St art: December 30, 2024 Nima Lee MD Other Provider Active Start : December 30, 2024 Benjamin Patterson MD Other Provider Active Start: December 30, 2024 Luis Enrique Arora MD Other Provider Active Start: S eptember 2024 Nir Shah II, MD Other Provider Active S tart: December 30, 2024 Phillip Duran DO Other Provider Active Start: December 30, 2024 Mya Callahan MD Other Provider Active Start: 2024 Clayton Cardenas MD Other Provider Active Start: S eptember 2024 Aleta Jensen APRN Other Provider Active St art: December 30, 2024 Doc Shankar MD Other Provider Active Start: December 30, 2024 Raimundo Mcclure MD Attending Provider Active Star t: December 30, 2024 Adult Basic Education Manager Relationship Specialty Start Date End Date Jose Juarez Jr., [address] [place] [address] PCP - General Internal Medicine 02/10/17 Team Status: Inactive Member Role Status Dates Chino Elliott DPM MS Attending Provider Active Start: August 28, 2024 End: August 28, 2024 Team Status: Active Member Role Status Dates Jose Juarez JR DO Primary Care Provider Active Start: December 30, 2024 Clayton Cardenas MD Admit Provider Active Start: S eptember 2024 Clayton Cardenas MD Attending Provider Active Star t: December 30, 2024 Clayton Cardenas MD Other Provider Active Start: S eptember 2024 Marlena Quintero RN Other Provider Active Star t: December 30, 2024 Yudy Richter RN Other Provider Active Start : December 30, 2024 Denise Gold RN Other Provider Active Star t: December 30, 2024 Diana Douglass RN Other Provider Active Start: S epte2024 Meme Cochran RN Other Provider Active Start: 2024 Brigitte Cardenas RN Other Provider Active Start: eptember 2024 Sukumar Patricio MD Other Provider Active Start: December 30, 2024 Doug Joseph , Other Provider Active Start : December 30, 2024 Dinesh Cervantes MD Other Provider Active Start : December 30, 2024 Eugene Morel , Other Provider Active Start: December 30, 2024 Enrique Yang MD Other Provider Active Start: December 30, 2024 Liza Rod MD Other Provider Active Start : December 30, 2024 Bryan Cordova DO Other Provider Active St art: December 30, 2024 Dewayne Godwin MD Other Provider Active Start: 2024 Ita Orellana APRN Other Provider Active Start: December 30, 2024 Vishal Aguirre MD Other Provider Active Start: December 30, 2024 Krystal Rodriguez MD Other Provider Active Start: December 30, 2024 Hnerry Manning MD Other Provider Active Start: December 30, 2024 Bryan James DO Other Provider Active Start: December 30, 2024 Idalia Bryan MD Other Provider Active Start: 2024 Nazario Baez MD Other Provider Active Start: Dec CHAD Wood Other Provider Active St art: December 30, 2024 Nick Jerez APRN Other Provider Active Star t: December 30, 2024 Toribio Best MD Other Provider Active Start: December 30, 2024 David Houston MD Other Provider Active Start: 2024 Ac Tineo MD Other Provider Active Star t: December 30, 2024 Son Hampton DO Other Provider Active Start : December 30, 2024 Ghislaine Fields APRN Other Provider Active Start: December 30, 2024 Zaid June , Other Provider Active Start: December 30, 2024 Luz Maria Gamble MD Other Provider Active Sta rt: December 30, 2024 Angelina Ren APRN Other Provider Active Start : December 30, 2024 Stefany Herring APRN Other Provider Active St art: December 30, 2024 Willian Soto MD Other Provider Active Start: S eptember 2024 Jerry Butler MD Other Provider Active S tart: December 30, 2024 Phillip Duran DO Other Provider Active Start: December 30, 2024 Leno Dela Cruz MD Other Provider Active Start: December 30, 2024 Cici Reilly MD Other Provider Active Start: December Ericka Otto APRN Other Provider Active Star t: December 30, 2024 Talia Pinedo MD Other Provider Active Start: S eptember 2024 Clayton Ramsey MD Other Provider Active Start: December 30, 2024 Dewayne Akbar MD Other Provider Active Start : December 30, 2024 Josemanuel Talavera MD Other Provider Active Start: S eptember 2024 Mary Pichardo APRN Other Provider Active Sta rt: December 30, 2024 Shon Negron APRN Other Provider Active Start: December 30, 2024 Fanta Thapa RN Other Provider Active Start: S eptember 2024 Kike Pollack MD Other Provider Active Start: S eptember 2024 CHAD Kaur Other Provider Active Start: December 30, 2024 Carie Abraham MD Other Provider Active Start: Se ptember 2024 Raimundo Mcclure MD Other Provider Active Start: S eptember 2024 Team Status: Active Member Role Status Dates Jose Juarez JR DO Primary Care Provider Active Start: January 06, 2025 Clayton Cardenas MD Admit Provider Active Start: S eptember 2024 Clayton Cardenas MD Other Provider Active Start: S eptember 2024 Marlena Quintero RN Other Provider Active Star t: January 06, 2025 Yudy Richter RN Other Provider Active Start : January 06, 2025 Denise Gold RN Other Provider Active Star t: January 06, 2025 Diana Douglass RN Other Provider Active Start: 2024 Meme Cochran RN Other Provider Active Start: 2024 Brigitte Cardenas RN Other Provider Active Start: 2024 Sukumar Patricio MD Other Provider Active Start: January 06, 2025 Doug Joseph , Other Provider Active Start : January 06, 2025 Dinesh Cervantes MD Other Provider Active Start : January 06, 2025 Eugene Morel , Other Provider Active Start: January 06, 2025 Enrique Yang MD Other Provider Active Start: January 06, 2025 Liza Rod MD Other Provider Active Start : January 06, 2025 Bryan Cordova DO Other Provider Active St art: January 06, 2025 Dewayne Godwin MD Other Provider Active Start: 2024 Ita Orellana APRN Other Provider Active Start: January 06, 2025 Vishal Aguirre MD Other Provider Active Start: January 06, 2025 Krystal Rodriguez MD Other Provider Active Start: January 06, 2025 Henrry Manning MD Other Provider Active Start: January 06, 2025 Bryan James DO Other Provider Active Start: January 06, 2025 Idalia Bryan MD Other Provider Active Start: 2024 Nazario Baez MD Other Provider Active Start: Dec Patricia Carmona NP-C Other Provider Active St art: January 06, 2025 Nick Jerez APRN Other Provider Active Star t: January 06, 2025 Toribio Best MD Other Provider Active Start: January 06, 2025 David Houston MD Other Provider Active Start: 2024 Ac Tineo MD Other Provider Active Star t: January 06, 2025 Son Hampton DO Other Provider Active Start : January 06, 2025 Ghislaine Fields APRN Other Provider Active Start: January 06, 2025 Zaid June , Other Provider Active Start: January 06, 2025 Luz Maria Gamble MD Other Provider Active Sta rt: January 06, 2025 Angelina Ren APRN Other Provider Active Start : January 06, 2025 Stefany Herring APRN Other Provider Active St art: January 06, 2025 Willian Soto MD Other Provider Active Start: S eptember 2024 Jerry Butler MD Other Provider Active S tart: January 06, 2025 Phillip Duran DO Other Provider Active Start: January 06, 2025 Leno Dela Cruz MD Other Provider Active Start: January 06, 2025 Cici Reilly MD Other Provider Active Start: December Ericka Otto APRN Other Provider Active Star t: January 06, 2025 Talia Pinedo MD Other Provider Active Start: S 2024 Clayton Ramsey MD Other Provider Active Start: January 06, 2025 Dewayne Akbar MD Other Provider Active Start : January 06, 2025 Josemanuel Talavera MD Other Provider Active Start: S 2024 Mary Pichardo APRN Other Provider Active Sta rt: January 06, 2025 Shon Negron APRN Other Provider Active Start: January 06, 2025 Fanta Thapa RN Other Provider Active Start: S ep2024 Kike Pollack MD Other Provider Active Start: S 2024 CHAD Kaur Other Provider Active Start: January 06, 2025 Carie Abraham MD Other Provider Active Start: Se ptember 2024 Raimundo Mcclure MD Other Provider Active Start: S [id number] Aleta Jensen APRN Attending Provider Active Start: January 06, 2025 Team Status: Active Member Role Status Dates Jose Juarez JR DO Primary Care Provider Active Start: January 13, 2025 Clayton Cardenas MD Admit Provider Active Start: S ep2024 Clayton Cardenas MD Attending Provider Active Star t: January 13, 2025 Clayton Cardenas MD Other Provider Active Start: S epmber 2024 Marlena Quintero RN Other Provider Active Star t: January 13, 2025 Yudy Richter RN Other Provider Active Start : January 13, 2025 Denise Gold RN Other Provider Active Star t: January 13, 2025 Diana Douglass RN Other Provider Active Start: 2024 Meme Cochran RN Other Provider Active Start: 2024 Brigitte Cardenas RN Other Provider Active Start: 2024 Sukumar Patricio MD Other Provider Active Start: January 13, 2025 Doug Joseph DO Other Provider Active Start : January 13, 2025 Dinesh Cervantes MD Other Provider Active Start : January 13, 2025 Eugene Morel DO Other Provider Active Start: January 13, 2025 Enrique Yang MD Other Provider Active Start: January 13, 2025 Liza Rod MD Other Provider Active Start : January 13, 2025 Bryan Cordova DO Other Provider Active St art: January 13, 2025 Dewayne Godwin MD Other Provider Active Start: 2024 Ita Orellana APRN Other Provider Active Start: January 13, 2025 Vishal Aguirre MD Other Provider Active Start: January 13, 2025 Krystal Rodriguez MD Other Provider Active Start: January 13, 2025 Henrry Manning MD Other Provider Active Start: January 13, 2025 Bryan James DO Other Provider Active Start: January 13, 2025 Idalia Bryan MD Other Provider Active Start: 2024 Nazario Baez MD Other Provider Active Start: Dec Patricia Carmona NP-C Other Provider Active St art: January 13, 2025 Nick Jerez APRN Other Provider Active Star t: January 13, 2025 Toribio Best MD Other Provider Active Start: January 13, 2025 David Houston MD Other Provider Active Start: 2024 Ac Tineo MD Other Provider Active Star t: January 13, 2025 Son Hampton DO Other Provider Active Start : January 13, 2025 Ghislaine Fields APRN Other Provider Active Start: January 13, 2025 Zaid June DO Other Provider Active Start: January 13, 2025 Luz Maria Gamble MD Other Provider Active Sta rt: January 13, 2025 Angelina Ren APRN Other Provider Active Start : January 13, 2025 Stefany Herring APRN Other Provider Active St art: January 13, 2025 Willian Soto MD Other Provider Active Start: 2024 Jerry Butler MD Other Provider Active S tart: January 13, 2025 Phillip Duran DO Other Provider Active Start: January 13, 2025 Leno Dela Cruz MD Other Provider Active Start: January 13, 2025 Cici Reilly MD Other Provider Active Start: December Ericka Otto APRN Other Provider Active Star t: January 13, 2025 Talia Pinedo MD Other Provider Active Start: 2024 Clayton Ramsey MD Other Provider Active Start: January 13, 2025 Dewayne Akbar MD Other Provider Active Start : January 13, 2025 Josemanuel Talavera MD Other Provider Active Start: 2024 Mary Pichardo APRN Other Provider Active Sta rt: January 13, 2025 Shon Negron APRN Other Provider Active Start: January 13, 2025 Fanta Thapa RN Other Provider Active Start: 2024 Kike Pollack MD Other Provider Active Start: 2024 CHAD Kaur Other Provider Active Start: January 13, 2025 Carie Abraham MD Other Provider Active Start: Se ptember 2024 Raimundo Mcclure MD Other Provider Active Start: S ep2024 Adult Basic Education Manager Relationship Specialty Start Date End Date Jose Juarez Jr., DO [address] [place] [address] PCP - General Internal Medicine 10/15/17 FOR RECORDS PERTAINING TO PATIENTS WHO ARE [...] [facility] provides no warranty or guarantee of the accuracy or completeness of information in this document.
== END 2025-02-01 11:38 | disposition home or self-care (01) ==
LOC: RAD 11:38
PROVIDERS: PCP Internal Medicine; Visit Provider Orthopaedic Surgery Orthopaedic Trauma
DX: S52.509D Unspecified fracture of the lower end of unspecified radius, subsequent encounter for closed fracture with routine healing (principal); S72.141D Displaced intertrochanteric fracture of right femur, subsequent encounter for closed fracture with routine healing
CPT/HCPCS: 73110; 73501

== ENCOUNTER 2025-02-02 14:48 | Outpatient (OUT) | payer BC, SELFPAY ==
--- OUTSIDE RECORDS SUMMARY | 2025-02-02 15:16 | XMS_ITS | CCD ---
Author Organization [facility] Care Team Providers Care Watch Manufacturing Supervisor Name Role Phone Jose Juarez Primary Care Provider Eugene Morel Admit Provider [phone] Eugene Morel Attending Provider [phone] Gordon Ewing Attending Provider Patria Cheung Attending Provider [phone] SAVANNAH REYNOLDS Admitting Unavailable SAVANNAH REYNOLDS Attending Unavailable JOSE JUAREZ Primary Care Unavailable JOSE JUAREZ Referring Unavailable CO Procedure Practitioner Unavailab TRISHA Ozuna Surgeon Unavailable NIMA WYNNE Surgeon Unavailable CO Procedure Practitioner Unavailab Jose Andres Primary Care Provider Eugene Morel Admit Provider [phone] Gordon Ewing Attending Provider Patria Cheung Attending Provider [phone] Latrice Lehman Attending Provider PROVIDER, UNKNOWN Attending [...] HIGHLANDER, CHINO Hopson Admitting Unavailable HIGHLANDER, CHINO Hopsno Consulting Unavailable VALONE, DR RIOS Primary Care Unavailable HIGHLANDER, CHINO Hopson Attending Unavailable HIGHLANDER, CHINO Hopson Admitting Unavailable VALONE, DR RIOS Primary Care Unavailable TRACY COE Attending Unavailable CAROLINTRACY LIRA Admitting Unavailable [...] HIGHLANDER, CHINO Hopson Attending Unavailable VALONE, DR RISO Primary Care Unavailable HIGHLANDER, CHINO Hopson Admitting [...] DR RIOS Primary Care Unavailable HIGHLANDER, CHINO Hospon Admitting Unavailable WEST, DR JAMESON Mckeon Consulting [...] Anmol Primary Care Unavailable VALONE JR, JOSE nAmol Referring Unavailable VALONE JR, JOSE Anmol Primary Care Unavailable VALONE JR, JOSE Anmol Referring Unavailable VALONE JR, JOSE Anmol Primary Care Unavailable HIGHLANDER, CHINO Hopson Referring Unavailable VALONE JR, JOSE Anmol Primary Care Unavailable VALONE JR, JOSE L Referring Unavailable VALONE JR, JOSE Anmol Primary Care Unavailable VALONE JR, JOSE Anmol Referring Unavailable VALONE JR, JOSE Anmol Primary Care Unavailable VALONE JR, JOSE Anmol Referring Unavailable VALONE JR, JOSE Anmol Primary Care Unavailable Valone Jr., Jose MAE Primary Care Provider [facility] DPM, Chino Hopson Attending Provider Kenya DPM, Chino Hopson Attending Provider [facility] DPM, Chino Hopson Attending Provider Jose Juarez JR Primary Care Provider Celia SIGALA, Enrique Admit Provider Lanie SIGALA, Leno Jennings Other Provider Leigh SIGALA, Carie Other Provider Fransisco AGUSTIN, Love Other Provider Unavailable Lester SIGALA, Ari Attending Provider Ari Batista MD Other Provider Lester NIETO-C, Alyssia Tilley Other Provider Jesus SIGALA, Nima Gan Other Provider Leonardo SIGALA, Benjamin Richter Other Provider [phone] Maite SIGALA, Luis Enrique Hopson Other Provider Pablo SIGALA, Nir Dennison Other Provider Roger MAE, Yasonia Other Provider London SIGALA, Mya Other Provider Ronald SIGALA, Clayton Other Provider Camila GOOD, Aleta Other Provider Raad SIGALA, Doc Hopson Other Provider Kami SIGALA, Raimundo Attending Provider [phone] Ronald SIGALA, Clayton Admit Provider Clayton Cardenas MD Attending Provider Ingrid RUBIO, Marlena Other Provider Unavailable Neelam RUBIO, Yudy Other Provider Unavailable Asif RN, Denise Other Provider Unavailable Rafat RN, Diana Other Provider Unavailable Dimas RNMeme Other Provider Unavailable Ronald RUBIO, Brigitte Other Provider Unavailable Sukumar Patricio MD Other Provider Doug Joseph DO Other Provider [phone] Billy SIGALA, Dinesh Other Provider Eugene Morel DO Other Provider Celia SIGALA, Enrique Other Provider [phone] Liza Rod MD Other Provider [phone] Bryan Cordova DO Other Provider Dewayne Godwin MD Other Provider Unavailable Ita Orellana APRN Other Provider Vishal Aguirre MD Other Provider Krystal Rodriguez MD Other Provider Unavailable Henrry Manning MD Other Provider Bryan James DO Other Provider Idalia Bryan MD Other Provider Nazario Baez MD Other Provider Mathew NIETO-C, Patricia Sanchez Other Provider Nick Jerez APRN Other Provider Unavailable Toribio Best MD Other Provider David Houston MD Other Provider Ac Tineo MD Other Provider Unavailable Son Hampton DO Other Provider [phone] Ghislaine Fields APRN Other Provider Zaid June DO Other Provider Tye SIGALA, Luz Maria Dennison Other Provider Angelina Ren APRN Other Provider Stefany Herring APRN Other Provider Willian Soto MD Other Provider Unavailable Jerry Butler MD Other Provider Cici Reilly MD Other Provider [phone] Ericka Otto APRN Other Provider Unavailable Talia [...] Talavera Consulting Unavailable Mary Pichardo Consulting Unavailable Bolzan-Basilia Nicolettemanuel Consulting Unavaila Fanta Benites Consulting Unavailable Kike Pollack Consulting Unavailable Elizabeth Monroe Consulting Unavailable Carie Abraham Consulting Unavailable Raimundo Mcclure Consulting Unavailable Donnell BONILLA, Alyssia Tilley Other Provider Bryan oCrdova DO Other Provider Unavailab Wilfrido Kirk DO Attending Provider Unavailable Unavailable Unavailable Allergies Allergy Classification Reported Allergen(s) Allergy Type Date of Onset Reaction(s) Facility exenatide (1 source) exenatide Drug Allergy 07-14-19 [facility] Repository NSAIDs (5 sources) celecoxib; Translations: [Celebrex] Drug Allergy 07-14-19 21 Difficulty Breathing [facility] Repository Phenolphthalein (1 source) Phenolphthalein Drug Allergy 07-14-19 21 [facility] Repository (12 sources) celecoxib; Translations: [celecoxib] Drug Allergy 07-21-19 17 Difficulty Breathing, bad for kidney, Difficulty Breathing, bad for kidney [facility] Repository (10 sources) Aspirin; Translations: [ASPIRIN] Drug Allergy 07-21-19 17 bad for kidney [facility] Repository (3 sources) Amoxicillin Drug Allergy 07-09-19 20 [facility] Repository (1 source) celecoxib Drug Allergy 07-09-19 20 [facility] Repository (1 source) exenatide Drug Allergy 07-09-19 20 [facility] Repository (1 source) Phenolphthalein Drug Allergy 07-09-19 [facility] Repository (4 sources) exenatide; Translations: [EXENATIDE] Drug Allergy 07-21-19 [facility] Repository (4 sources) HYLAN G-F 20; Translations: [HYLAN G-F ] Propensity to adverse reactions to drug (disorder) 07-21-19 [facility] Repository (2 sources) exenatide Drug Allergy 09-14-19 [facility] (2 sources) OXcarbazepine Drug Allergy 09-14-19 [facility] (1 source) Aspirin Drug Allergy 12-24-19 [facility] Repository Medications Current Medications Medication Drug Class(es) Dates Sig (Normalized) Sig (Original) acetaminophen 500 mg oral tablet (2 sources) Start: 01-15-2025 take 2 tablets by mouth three times daily Albuterol Sulfate (12 sources) beta2-Adrenergic Agonist Start: 12-31-2018 take 1 [...] Start: 08-18-2020 take 1 capsule by mo uth once daily B Complex With C 20-Folic [...] e 300 mg extended release oral tablet (12 sources) Aminoketone Start: 12-23-2024 take 1 tablet by regan th once daily Start: 09-30-2017 take 150 mg [...] Active colesevelam hydrochloride 625 mg oral tablet (12 sources) Bile Acid Sequestrant Start: 09-30-2017 take [...] 1 ml darbepoetin ml 0.06 mg/ml injection (2 sources) Erythropoiesis-stimulating Agent Start: 01-15-2025 take 60 ug intravenously every week docusate sodium 100 mg oral capsule (14 sources) Start: 01-15-2025 take 1 capsule by [...] DULoxetine 60 mg delayed release oral capsule (19 sources) Serotonin and Norepinephrine Reuptake Inhibitor Start: 08-18-2020 take 1 capsule by mouth once daily Start: 09-30-2017 End: 12-31-2018 take 1 capsule by mouth at bedtime Duloxetine 30 mg capsule,delayed release(DR/EC) Discontinued 30 MG PO Bedtime September 30, 2017 12:00am December 31, 2018 3:08pm famotidine 40 mg oral tablet (13 sources) Histamine-2 Receptor Antagonist Start: 08-18-2020 Start: 08-18-2020 take 1 tablet by regan th twice daily Start: 09-30-2017 take 20 mg by mouth twice sohan y Famotidine Active 20 MG Oral Twice daily September 30, 2017 6:23pm Finerenone (3 sources) Start: 12-23-2024 take 1 tablet by mouth once daily folic acid 1 mg oral tablet (3 sources) Start: 12-31-2018 take 1 mg by mouth once daily Folic Acid Active 1 MG Oral Daily December 31, 2018 3:14pm ALL DAYS EXCEPT SATURDAY heparin sodium, porcine 5000 unt/ml injectable solution (2 sources) Unfractionated Heparin, Anti-coagulant Start: 01-15-2025 inject 5000 [IU] by subcutaneous injection every twelve hours 3 ml insulin aspart, human 100 unt/ml pen injector (8 sources) Insulin Analog Start: 12-29-2024 End: 01-15-2025 Start: 12-23-2024 End: 01-15-2025 Insulin Aspart U-100 (Novolo g U-100 Insulin Aspart) 100 unit/mL solution Discontinued 1 sliding scale dose SUBCUT As Directed December 23, 2024 12:00am January 15, 2025 12:24pm 3 ml insulin glargine 100 un t/ml pen injector (5 sources) Insulin Analog Start: 01-15-2025 Start: 12-29-2024 End: 01-15-2025 Insulin Glargine (Lantus Susana ostar U-100 Insulin) 100 unit/mL (3 mL) Insulin Pen Discontinued 40 UNIT SUBCUT Daily 04 27December 29, 2024 12:00am January 15, 2025 12:23pm lidocaine 0.04 mg/mg medicated patch (2 sources) Antiarrhythmic, Amide Local Anesthetic Start: 01-15-2025 apply 1 dose topically once daily linezolid 600 mg oral tablet (1 source) Oxazolidinone Antibacterial Start: 01-05-2019 take 600 mg by mouth twice daily Linezolid Active 600 MG Oral Twice daily 28 14 January 05, 2019 2:10pm Magnesium (1 source) Magnesium 400 MG as directed Orally Active meclizine hydrochloride 25 mg chewable tablet (13 sources) Antiemetic Start: 09-30-2017 take 25 mg [...] 2:10pm midodrine hydrochloride 5 mg oral tablet (3 sources) alpha-Adrenergic Agonist Start: 01-15-2025 take 2 tablets by mouth before breakfast take 1 tablet by regan th twice daily in the morning Midodrine HCl 5 MG TAKE 1 TABLET BY MOUT H TWICE DAILY IN THE MORNING AND SUPPER IF BLOOD PRESSURE IS LESS THAN 90 STANDING Oral Active montelukast 10 mg oral tablet (13 sources) Leukotriene Receptor Antagonist Start: 09-30-2017 take 1 tablet by mouth at bedtime Multivit With Iht-Ny-Rumbqwon (One-A-Day Men's 50 Plus) 400-370 mcg tablet (3 sources) Start: 12-23-2024 take 50-400 tablets by mouth once daily nystatin 100 unt/mg topical powder (2 sources) Polyene Antifungal Start: 01-15-2025 ondansetron 4 mg oral tablet (1 source) Serotonin-3 Receptor Antagonist take 1 tablet by mouth every eight hours as needed Ondansetron HCl 4 MG TAKE 1 TABLET BY MOUTH EVERY 8 HOURS NEEDED Oral for 3 Active oxyCODONE hydrochloride 5 mg oral tablet (2 sources) Opioid Agonist Start: 01-15-2025 take 2 tablets by mouth every six hours as needed for pain polyethylene glycol 3350 [id number] mg powder for oral solution (3 sources) Osmotic Laxative Start: 01-15-2025 Miralax 17 [...] Active rosuvastatin calcium 20 mg oral tablet (16 sources) HMG-CoA Reductase Inhibitor Start: 12-23-2024 take [...] 6:35pm sevelamer carbonate 800 mg oral tablet (20 sources) Phosphate Binder Start: 08-25-2020 take 1 tablet by regan once at mealtime Start: 09-30-2017 take 400 [...] sodium ferric gluconate complex 12.5 mg/ml injection (2 sources) Start: 01-15-2025 triamcinolone acetonide 1 mg/ml topical cream (12 sources) Corticosteroid Start: 12-31-2018 Triamcinolone Acetonide Active 1 APPLIC TOPICAL Twice daily December 31, 2018 3:14pm Start: 12-31-2018 End: 12-29-2024 Triamcinolone Acetonide 0.1 % Cream Discontinued 1 APPLIC TOPICAL Twice daily December 31, 2018 12:00am December 29, 2024 12:20pm Completed/Discontinued Medications Medication Drug Class(es) Dates Sig (Normalized) Sig (Original) acetaminophen 325 mg / HYDROcodone bitartrate 5 mg oral tablet (20 sources) Opioid Agonist Start: 12-31-2018 End: 01-05-2019 [...] / oxyCODONE hydrochloride 5 mg oral tablet (10 sources) Opioid Agonist Start: 11-12-2017 End: 12-31-2018 [...] mg / clavulanate 125 mg oral tablet (18 sources) Penicillin-class Antibacterial Start: 11-12-2017 End: 11-26-2017 [...] 2017 1:24pm apremilast 30 mg oral tablet (9 sources) Start: 08-19-2020 End: 12-29-2024 take 1 tablet by mouth once daily Apremilast (Otezla) 30 mg Tablet Discontinued 30 MG PO Daily August 19, 2020 12:00am December 29, 2024 12:20pm atorvastatin 40 mg oral tablet (8 sources) HMG-CoA Reductase Inhibitor Start: 08-23-2020 End: 01-15-2025 take 1 tablet by mouth once daily in the evening Atorvastatin 40 mg Tablet Discontinued 40 MG PO Every evening August 23, 2020 12:00am January 15, 2025 12:23pm B Complex And C 20-Folic Acid 1 mg capsule (4 sources) Start: 09-30-2017 End: 11-08-2017 take [...] 2017 1:25pm bumetanide 2 mg oral tablet (9 sources) Loop Diuretic Start: 09-30-2017 End: 12-31-2018 take 1 tablet by mouth once daily Bumetanide 2 mg Tablet Discontinued 2 MG PO Daily September 30, 2017 12:00am December 31, 2018 3:05pm calcium acetate 667 mg oral capsule (12 sources) Start: 09-30-2017 End: 08-25-2020 take 1 capsule by mouth three times daily at mealtime Calcium Acetate(Phosphat Bind) 667 mg Capsule Discontinued 667 MG PO THREE TIMES DAILY WITH MEALS September 30, 2017 12:00am August 25, 2020 12:34pm cholecalciferol 0.125 mg oral tablet (9 sources) Vitamin D Start: 08-18-2020 End: 08-25-2020 take 1 tablet by mouth once daily Cholecalciferol (Vitamin D3) (Vitamin D3) 125 mcg (5,000 unit) Tablet Discontinued 125 MCG PO Daily August 18, 2020 12:00am August 25, 2020 12:34pm doxycycline hyclate 100 mg oral capsule (9 sources) Tetracycline-class Drug Start: 11-12-2017 End: 12-03-2017 take 1 capsule by mouth twice daily Doxycycline Hyclate 100 mg capsule Discontinued 100 MG PO Twice daily November 12, 2017 12:00am December 02, 2017 12:00am December 03, 2017 12:01am empagliflozin 25 mg oral tablet (3 sources) Sodium-Glucose Cotransporter 2 Inhibitor Start: 12-23-2024 End: 01-15-2025 take 1 tablet by mouth once daily Empagliflozin (Jardiance) 25 mg tablet Discontinued 25 MG PO Daily December 23, 2024 12:00am January 15, 2025 12:23pm On Hold: Plan to hold permanently given HD status per nephrology esomeprazole 40 mg delayed release oral capsule (9 sources) Proton Pump Inhibitor Start: 08-18-2020 End: 12-29-2024 take 1 capsule by mouth once daily Esomeprazole Magnesium 40 mg capsule,delayed release(DR/EC) Discontinued 40 MG PO Daily August 18, 2020 12:00am December 29, 2024 12:20pm ferrous sulfate 325 mg oral tablet (8 sources) Start: 08-25-2020 End: 12-29-2024 Ferrous Sulfate 325 mg (65 mg iron) tablet Discontinued 325 MG PO Every 48 hours August 25, 2020 12:00am December 29, 2024 12:20pm furosemide 40 mg oral tablet (10 sources) Loop Diuretic Start: 08-25-2020 End: 12-29-2024 take 1 tablet by mouth twice daily Furosemide 40 mg Tablet Discontinued 40 MG PO BID@0800,1600 60 August 25, 2020 12:00am December 29, 2024 12:20pm Start: 01-05-2019 take 40 mg by mouth once daily Furosemide Active 40 MG Oral Daily January 05, 2019 2:10pm gabapentin 800 mg oral tablet (18 sources) Anti-epileptic Agent Start: 08-18-2020 End: 08-25-2020 [...] 3:10pm hydrALAZINE hydrochloride 25 mg oral tablet (12 sources) Arteriolar Vasodilator Start: 12-29-2024 End: 01-15-2025 take 1 tablet by mouth three times daily Hydralazine 25 mg Tablet Discontinued 25 MG PO Three times daily 90 December 29, 2024 12:00am January 15, 2025 [...] ml insulin detemir 100 unt/ml pen injector (3 sources) Insulin Analog Start: 12-23-2024 End: 12-29-2024 inject 30 [IU] by subcutaneous injection at bedtime Insulin Detemir U-100 100 unit/mL (3 mL) insulin pen Discontinued 30 UNIT SUBCUT Bedtime December 23, 2024 12:00am December 29, 2024 12:20pm 3 ml insulin glargine 100 unt/ml / lixisenatide 0.033 mg/ml pen injector (20 sources) Insulin Analog Start: 12-31-2018 End: 12-29-2024 Insulin Glargine-Lixisenat ranye (Soliqua 100/33) 100 unit-33 mcg/mL Insulin Pen [...] SCALE Active linaclotide 0.145 mg oral capsule (9 sources) Guanylate Cyclase-C Agonist Start: 09-30-2017 End: 11-08-2017 take 1 capsule by mouth once daily Linaclotide 145 mcg capsule Discontinued 145 MCG PO Daily September 30, 2017 12:00am November 08, 2017 1:31pm losartan potassium 100 mg oral tablet (11 sources) Angiotensin 2 Receptor Osman Start: 12-31-2018 [...] Active magnesium oxide 400 mg oral tablet (9 sources) Start: 08-18-2020 End: 12-29-2024 take 1 tablet by mouth once daily Magnesium Oxide 400 mg magnesium Tablet Discontinued 400 MG PO Daily August 18, 2020 12:00am December 29, 2024 12:20pm methotrexate 2.5 mg oral tablet (12 sources) Folate Analog Metabolic Inhibitor Start: 12-31-2018 [...] week Active methylPREDNISolone 4 mg oral tablet (8 sources) Corticosteroid Start: 08-23-2020 End: 12-29-2024 take 1 tablet by mouth once Methylprednisolone (Medrol (Sukh)) 4 mg tablets,dose pack Discontinued 0 PO .COMPLEX August 23, 2020 12:00am December 29, 2024 12:20pm orally per package directions metOLazone 10 mg oral tablet (9 sources) Thiazide-like Diuretic Start: 09-30-2017 End: 12-31-2018 take 1 tablet by mouth twice daily Metolazone 10 mg tablet Discontinued 10 MG PO Twice daily September 30, 2017 12:00am December 31, 2018 3:12pm OXcarbazepine 300 mg oral tablet (13 sources) Anti-epileptic Agent Start: 09-30-2017 End: 12-29-2024 take 1 tablet by mouth at bedtime Oxcarbazepine 300 mg tablet Discontinued 300 MG PO Bedtime September 30, 2017 12:00am December 29, 2024 12:20pm potassium chloride 10 meq extended release oral tablet (17 sources) Start: 08-25-2020 End: 12-29-2024 Potassium Chloride (Klor-Con 10) 10 mEq Tablet Extended Release Discontinued 10 MEQ PO Daily 30 August 25, 2020 12:00am December 29, 2024 12:20pm Start: 09-30-2017 End: 12-31-2018 Potassium Chloride 20 mEq Ta blet Extended Release Discontinued 20 MEQ PO As Directed September 30, 2017 12:00am December 31, 2018 3:13pm sodium bicarbonate 325 mg oral tablet (15 sources) Start: 12-23-2024 End: 01-15-2025 take 1 [...] mg / trimethoprim 160 mg oral tablet (20 sources) Dihydrofolate Reductase Inhibitor Antibacterial, Sulfonamide Antimicrobial [...] 1:33pm traZODone hydrochloride 50 mg oral tablet (13 sources) Serotonin Reuptake Inhibitor Start: 09-30-2017 End: 12-29-2024 take 1 tablet by mouth at bedtime Trazodone 50 mg tablet Discontinued 50 MG PO Bedtime September 30, 2017 12:00am December 29, 2024 12:20pm varenicline 1 mg oral tablet (11 sources) Partial Cholinergic Nicotinic Agonist Start: 09-30-2017 End: 01-05-2019 take 1 tablet by mouth once daily Varenicline Tartrate 1 mg tablet Discontinued 1 MG PO Daily September 30, 2017 12:00am January 05, 2019 2:16pm vorapaxar 2.08 mg oral tablet (9 sources) Protease-activated Receptor-1 Antagonist Start: 09-30-2017 End: 11-08-2017 take 1 tablet by mouth once daily Vorapaxar 2.08 mg Tablet Discontinued 2.08 MG PO Daily September 30, 2017 12:00am November 08, 2017 1:36pm Problems Active Problems Problem Classification Problem Date Documented Date Episodic/Chronic Acute and unspecified renal failure (13 sources) Acute kidney failure, unspecified; Translations: [Acute kidney failure, unspecified] Onset: 2 Episodic Bacterial infection; unspecified site (20 sources) Methicillin resistant Staphylococcus aureus infection; Translations: [...] Resolved: 1 Chronic Diabetes mellitus without complication (19 sources) Type 2 diabetes mellitus; Translations: [Diabetes mellitus] Onset: 3 09-30-2017 Chronic Diabetes mellitus without complication (2 sources) Hyperglycemia; Translations: [Hyperglycemia, unspecified] Episodic Disorders of lipid metabolism (6 sources) Hyperlipidemia; Translations: [Hyperlipidemia, unspecified] Onset: 1 Resolved: 1 Chronic Esophageal disorders (20 sources) Gastroesophageal reflux disease; Translations: [Gastro-esophageal reflux disease without esophagitis] Onset: 5 Chronic Essential hypertension (19 sources) Hypertensive disorder; Translations: [Essential (primary) hypertension] Onset: 2 Chronic Fluid and electrolyte disorders (20 sources) Metabolic acidosis; Translations: [Acidosis] Onset: 5 Episodic Fracture of neck of femur (hip) (20 sources) Fracture of bone of hip region; Translations: [Fracture of unspecified part of neck of unspecified femur, initial encounter for closed fracture] Onset: 5 12-23-2024 Episodic Fracture of upper limb (10 sources) Fracture of distal end of radius; [...] Onset: 3 Chronic Other aftercare (2 sources) intermediate card tender (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; Translations: [FCI CURRENT USE OF INSULIN] Onset: 2 Episodic [...] Chronic Other bone disease and musculoskeletal deformities (10 sources) History of amputation of right foot; [...] 07-20-2016 Chronic Other inflammatory condition of skin (15 sources) Psoriasis; Translations: [Psoriasis, unspecified] Onset: 5 01-05-2019 Chronic Other inflammatory condition of skin (6 sources) Psoriasis, unspecified; Translations: [Other psoriasis] Onset: 3 Chronic Other inflammatory condition of skin (1 source) Other psoriasis; Translations: [OTHER PSORIASIS] Onset: 3 Chronic Other liver diseases (1 source) Liver disease, unspecified; Translations: [LIVER DISEASE UNSPECIFIED] Onset: 3 Chronic Other lower respiratory disease (8 sources) History of pleural effusion; Translations: [Personal history of other diseases of the respiratory system] 08-20-2020 Episodic Other lower respiratory disease (8 sources) Pleuritic pain; Translations: [Pleurodynia] 08-20-2020 Episodic Other lower respiratory disease (3 sources) Personal history of other diseases of the respiratory system; Translations: [Personal history of other diseases of respiratory system] Episodic Other lower respiratory disease (3 sources) Pleurodynia; Translations: [Painful respiration] Episodic Other nutritional; endocrine; and metabolic disorders (10 sources) Morbid obesity; Translations: [Morbid (severe) obesity due to excess calories] 09-30-2017 Chronic Other nutritional; endocrine; and metabolic disorders (5 sources) Morbid (severe) obesity due to excess calories; Translations: [Morbid obesity] Onset: 2 Chronic Kristin-; endo-; and myocarditis; cardiomyopathy (except that caused by tuberculosis or sexually transmitted disease) (11 sources) Pericarditis; Translations: [Disease of pericardium, unspecified] Episodic Peripheral and visceral atherosclerosis (17 sources) Peripheral vascular disease; Translations: [Peripheral vascular disease, unspecified] Onset: 3 Chronic Pleurisy; pneumothorax; pulmonary collapse (20 sources) Thickening of pleura; 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 Unclassified (6 sources) Please follow post-op orders. Unclassified (4 sources) Call to schedule follow up appointment with PCP after discharge Unclassified (4 sources) Follow up with rehab physician as needed Unclassified (4 sources) Call to schedule follow up appointment with surgeon after discharge Unclassified (2 sources) Call to schedule follow [...] 06-27-2022 Episodic Other aftercare (7 sources) Other shelter (current) drug therapy; Translations: [OTH CASHIER AND WAITER/WAITRESS CURRENT DRUG THERAPY] Onset: 08-20-2022 Episodic Other [...] 01-15-2025 Commemt1 Glu2: Cleaned Meter Normal [facility] Comment on above: Result Comment: PERF ORMED BY: [facility] [address] [address] PATHOLOGIST MICROCOMPUTER SUPPORT SPECIALIST CARLOS BIRMINGHAM M.D. Performed By: #### H EPACUTE, HBCAB, HBSAB #### [facility] , Glucose [Mass/Vol] 85 mg/dL Normal [facility] Comment on above: Result Comment: Jenners Glucose Reference Range is dependent on time and content of last meal. Glucose of more than 200 mg/dL in a nonstressed, ambulatory subject supports the diagnosis of Diabetes Mellitus. Performed By: #### H EPACUTE, HBCAB, HBSAB #### [facility] , Glucose [Mass/Vol] 85 mg/dL Normal [facility] Comment on above: Result Comment: [place] [place] Glucose Reference Range is dependent on time and content of last meal. Glucose of more than 200 mg/dL in a nonstressed, ambulatory subject supports the diagnosis of Diabetes Mellitus. PERFORMED BY: [address] [address] PATHOLOGIST MICROCOMPUTER SUPPORT SPECIALIST CARLOS BIRMINGHAM M.D. Performed By: #### H EPACUTE, HBCAB, HBSAB #### [facility] , Glucose Poct Glucometerson 0 01-14-2025 Glucose [Mass/Vol] 296 mg/dL Normal [facility] Comment on above: Result Comment: [place] Glucose Reference Range is dependent on time and content of last meal. Glucose of more than 200 mg/dL in a nonstressed, ambulatory subject supports the diagnosis of Diabetes Mellitus. PERFORMED BY: [address] [place] [address] PATHOLOGIST MICROCOMPUTER SUPPORT SPECIALIST CARLOS BIRMINGHAM M.D. Performed By: #### H EPACUTE, HBCAB, HBSAB #### [facility] , Glucose [Mass/Vol] 131 mg/dL Normal [facility] Comment on above: Result Comment: [facility] Glucose Reference Range is dependent on time and content of last meal. Glucose of more than 200 mg/dL in a nonstressed, ambulatory subject supports the diagnosis of Diabetes Mellitus. PERFORMED BY: [address] [address] PATHOLOGIST MICROCOMPUTER SUPPORT SPECIALIST CARLOS BIRMINGHAM M.D. Performed By: #### H EPACUTE, HBCAB, HBSAB #### [facility] , Glucose [Mass/Vol] 116 mg/dL Normal [facility] Comment on above: Result Comment: [place] [place] Glucose Reference Range is dependent on time and content of last meal. Glucose of more than 200 mg/dL in a nonstressed, ambulatory subject supports the diagnosis of Diabetes Mellitus. PERFORMED BY: [address] [place] [address] PATHOLOGIST MICROCOMPUTER SUPPORT SPECIALIST CARLOS BIRMINGHAM M.D. Performed By: #### G LULS #### Point of Care testing , Glucose [Mass/Vol] 118 mg/dL Normal [facility] Comment on above: Result Comment: [facility] Glucose Reference Range is dependent on time and content of last meal. Glucose of more than 200 mg/dL in a nonstressed, ambulatory subject supports the diagnosis of Diabetes Mellitus. PERFORMED BY: [address] [address] PATHOLOGIST MICROCOMPUTER SUPPORT SPECIALIST CARLOS BIRMINGHAM M.D. Performed By: #### G LULS #### Point of Care testing , Glucose Poct Glucometerson 0 01-13-2025 Glucose [Mass/Vol] 75 mg/dL Normal [facility] Comment on above: Result Comment: [facility] Glucose Reference Range is dependent on time and content of last meal. Glucose of more than 200 mg/dL in a nonstressed, ambulatory subject supports the diagnosis of Diabetes Mellitus. PERFORMED BY: [address] [address] PATHOLOGIST MICROCOMPUTER SUPPORT SPECIALIST CARLOS BIRMINGHAM M.D. Performed By: #### G LULS #### Point of Care testing , Glucose [Mass/Vol] 89 mg/dL Normal [facility] Comment on above: Result Comment: [facility] Glucose Reference Range is dependent on time and content of last meal. Glucose of more than 200 mg/dL in a nonstressed, ambulatory subject supports the diagnosis of Diabetes Mellitus. PERFORMED BY: [address] [address] PATHOLOGIST MICROCOMPUTER SUPPORT SPECIALIST CARLOS BIRMINGHAM M.D. Performed By: #### H EPACUTE, HBCAB, HBSAB #### [facility] , Glucose [Mass/Vol] 114 mg/dL Normal [facility] Comment on above: Result Comment: [facility] Glucose Reference Range is dependent on time and content of last meal. Glucose of more than 200 mg/dL in a nonstressed, ambulatory subject supports the diagnosis of Diabetes Mellitus. PERFORMED BY: [address] [address] PATHOLOGIST MICROCOMPUTER SUPPORT SPECIALIST CARLOS BIRMINGHAM M.D. Performed By: #### G LULS #### Point of Care testing , Glucose [Mass/Vol] 99 mg/dL Normal [facility] Comment on above: Result Comment: [facility] Glucose Reference Range is dependent on time and content of last meal. Glucose of more than 200 mg/dL in a nonstressed, ambulatory subject supports the diagnosis of Diabetes Mellitus. PERFORMED BY: [address] [address] PATHOLOGIST MICROCOMPUTER SUPPORT SPECIALIST CARLOS BIRMINGHAM M.D. Performed By: #### G LULS #### Point of Care testing , Glucose [Mass/Vol] 80 mg/dL Normal [facility] Comment on above: Result Comment: [facility] Glucose Reference Range is dependent on time and content of last meal. Glucose of more than 200 mg/dL in a nonstressed, ambulatory subject supports the diagnosis of Diabetes Mellitus. PERFORMED BY: [address] [address] PATHOLOGIST MICROCOMPUTER SUPPORT SPECIALIST CARLOS BIRMINGHAM M.D. Performed By: #### H EPACUTE, HBCAB, HBSAB #### [facility] , Glucose [Mass/Vol] 66 mg/dL Normal [facility] Comment on above: Result Comment: [facility] Glucose Reference Range is dependent on time and content of last meal. Glucose of more than 200 mg/dL in a nonstressed, ambulatory subject supports the diagnosis of Diabetes Mellitus. PERFORMED BY: [address] [address] PATHOLOGIST MICROCOMPUTER SUPPORT SPECIALIST CARLOS BIRMINGHAM M.D. Performed By: #### G LULS #### Point of Care testing , Renal Function Panelon 01-13 Albumin [Mass/Vol] 3.3 g/dL Low 3.5-5.7 [facility] Comment on above: Performed By: #### G LULS #### Point of Care testing , Anion gap [Moles/Vol] 13.4 mmol/L Normal 6.0-15.0 [facility] Comment on above: Performed By: #### G LULS #### Point of Care testing , Calcium [Mass/Vol] 10.1 mg/dL Normal 8.6-10.3 [facility] Comment on above: Performed By: #### G LULS #### Point of Care testing , Chloride [Moles/Vol] 98 mmol/L Normal 98-107 [facility] Comment on above: Performed By: #### G LULS #### Point of Care testing , CO2 [Moles/Vol] 26.9 mmol/L Normal 21.0-31.0 [facility] Comment on above: Performed By: #### G LULS #### Point of Care testing , Creatinine [Mass/Vol] 5.69 mg/dL High 0.70-1.30 [facility] Comment on above: Performed By: #### G LULS #### Point of Care testing , Creatinine Clr Calc Pharmacy 18.17 Normal [facility] Comment on above: Result Comment: PERF ORMED BY: [address] [place] [address] PATHOLOGIST MICROCOMPUTER SUPPORT SPECIALIST CARLOS BIRMINGHAM M.D. Performed By: #### G LULS #### Point of Care testing , GFR/1.73 sq M.predicted MDRD (S/P/Bld) [Vol rate/Area] 10.432 mL/min/{1.73_m2} Normal [facility] Comment on above: Performed By: #### G LULS #### Point of Care testing , Glucose [Mass/Vol] 78 mg/dL Normal 70-100 [facility] Comment on above: Result Comment: [facility] Glucose Reference Range is dependent on time and content of last meal. Glucose of more than 200 mg/dL in a nonstressed, ambulatory subject supports the diagnosis of Diabetes Mellitus. ADA recommended reference range Performed By: #### G LULS #### Point of Care testing , Phosphate [Mass/Vol] 4.5 mg/dL Normal 2.5-4.5 [facility] Comment on above: Performed By: #### G LULS #### Point of Care testing , Potassium [Moles/Vol] 4.3 mmol/L Normal 3.5-5.1 [facility] Comment on above: Performed By: #### G LULS #### Point of Care testing , Sodium [Moles/Vol] 134 mmol/L Low 136-145 [facility] Comment on above: Performed By: #### G LULS #### Point of Care testing , Urea nitrogen [Mass/Vol] 35 mg/dL High 7-25 [facility] Comment on above: Performed By: #### G LULS #### Point of Care testing , Glucose Poct Glucometerson 0 01-12-2025 Glucose [Mass/Vol] 130 mg/dL Normal [facility] Comment on above: Result Comment: [facility] Glucose Reference Range is dependent on time and content of last meal. Glucose of more than 200 mg/dL in a nonstressed, ambulatory subject supports the diagnosis of Diabetes Mellitus. PERFORMED BY: [facility] [address] [place] [address] PATHOLOGIST MICROCOMPUTER SUPPORT SPECIALIST CARLOS BIRMINGHAM M.D. Performed By: #### H EPACUTE, HBCAB, HBSAB #### [facility] , Glucose [Mass/Vol] 136 mg/dL Normal [facility] Comment on above: Result Comment: [facility] Glucose Reference Range is dependent on time and content of last meal. Glucose of more than 200 mg/dL in a nonstressed, ambulatory subject supports the diagnosis of Diabetes Mellitus. PERFORMED BY: [facility] [address] [place] [address] PATHOLOGIST MICROCOMPUTER SUPPORT SPECIALIST CARLOS BIRMINGHAM M.D. Performed By: #### H EPACUTE, HBCAB, HBSAB #### [facility] , Glucose [Mass/Vol] 105 mg/dL Normal [facility] Comment on above: Result Comment: [facility] Glucose Reference Range is dependent on time and content of last meal. Glucose of more than 200 mg/dL in a nonstressed, ambulatory subject supports the diagnosis of Diabetes Mellitus. PERFORMED BY: [place] [address] PATHOLOGIST MICROCOMPUTER SUPPORT SPECIALIST CARLOS BIRMINGHAM M.D. Performed By: #### H EPACUTE, HBCAB, HBSAB #### [facility] , Glucose [Mass/Vol] 69 mg/dL Normal [facility] Comment on above: Result Comment: [facility] Glucose Reference Range is dependent on time and content of last meal. Glucose of more than 200 mg/dL in a nonstressed, ambulatory subject supports the diagnosis of Diabetes Mellitus. PERFORMED BY: [place] [address] PATHOLOGIST MICROCOMPUTER SUPPORT SPECIALIST CARLOS BIRMINGHAM M.D. Performed By: #### G LULS #### Point of Care testing , Commemt1 Normal [facility] Comment on above: Result Comment: Glu2 : WILL NOTIFY DR/RN PERFORMED BY: [place] [address] PATHOLOGIST MICROCOMPUTER SUPPORT SPECIALIST CARLOS BIRMINGHAM M.D. Performed By: #### H EPACUTE, HBCAB, HBSAB #### [facility] , Glucose [Mass/Vol] 48 mg/dL Off scale low [facility] Comment on above: Result Comment: [facility] Glucose Reference Range is dependent on time and content of last meal. Glucose of more than 200 mg/dL in a nonstressed, ambulatory subject supports the diagnosis of Diabetes Mellitus. Performed By: #### H EPACUTE, HBCAB, HBSAB #### [facility] , Glucose [Mass/Vol] 89 mg/dL Normal [facility] Comment on above: Result Comment: [facility] Glucose Reference Range is dependent on time and content of last meal. Glucose of more than 200 mg/dL in a nonstressed, ambulatory subject supports the diagnosis of Diabetes Mellitus. PERFORMED BY: [place] [id number] PATHOLOGIST MICROCOMPUTER SUPPORT SPECIALIST CARLOS BIRMINGHAM M.D. Performed By: #### G LULS #### Point of Care testing , XR hip RT min 2V(w/wo pelvis )*on 01-12-2025 XR hip RT min 2V(w/wo pelvis)* [facility] Main [place] [id number] XRay Report Signed Patient: Rashard Lyman MR#: [id number] : 1960 Acct:[id number] Age/Sex: 64 / M ADM Date: 12/30/24 Loc: Room: [address] [place] [address] Type: ADM IN Attending Dr: Clayton Cardenas [...] Santiago M.D. 01/12/2025 4:27 PM Dictation Location: [place] [address] Transcribed By: [facility] 01/12/25 1627 Dictated By: Ari Santiago DO 01/12/251625 Signed By: 01/12/25 1627 Normal [facility] XR knee RT 2Von 01-12-2025 XR knee RT 2V [facility] Main [address] [address] XRay Report Signed Patient: Rashard Lyman MR#: [id number] : 1960 Acct:[id number] Age/Sex: 64 / M ADM Date: 12/30/24 Loc: Room: [address] [place] [address] Type: ADM IN Attending Dr: Clayton Cardenas [...] Santiago M.D. 01/12/2025 4:29 PM Dictation Location: [employer] Transcribed By: JU 01/12/25 1629 Dictated By: Ari Santiago DO 01/12/25 1628 Signed By: 01/12/25 1629 Normal [facility] XR wrist RT 2Von 01-12-2025 XR wrist RT 2V [facility] Main [place] [address] [place] [address] XRay Report Signed Patient: Rashard Lyman MR#: [id number] : 1960 Acct:[id number] Age/Sex: 64 / M ADM Date: 12/30/24 Loc: Room: [address] [place] [address] Type: ADM IN Attending Dr: Clayton Cardenas [...] Santiago M.D. 01/12/2025 4:30 PM Dictation Location: [employer] Transcribed By: JU 01/12/25 1630 Dictated By: Ari Santiago DO 01/12/25 162 Signed By: 01/12/25 1630 Normal [facility] Glucose Poct Glucometerson 0 01-11-2025 Glucose [Mass/Vol] 182 mg/dL Normal [facility] Comment on above: Result Comment: [facility] Glucose Reference Range is dependent on time and content of last meal. Glucose of more than 200 mg/dL in a nonstressed, ambulatory subject supports the diagnosis of Diabetes Mellitus. PERFORMED BY: [place] [address] PATHOLOGIST MICROCOMPUTER SUPPORT SPECIALIST CARLOS BIRMINGHAM M.D. Performed By: #### H EPACUTE, HBCAB, HBSAB #### [facility] , Glucose [Mass/Vol] 98 mg/dL Normal [facility] Comment on above: Result Comment: [facility] Glucose Reference Range is dependent on time and content of last meal. Glucose of more than 200 mg/dL in a nonstressed, ambulatory subject supports the diagnosis of Diabetes Mellitus. PERFORMED BY: [place] [address] PATHOLOGIST MICROCOMPUTER SUPPORT SPECIALIST CARLOS BIRMINGHAM M.D. Performed By: #### G LULS #### Point of Care testing , Commemt1 Glu2: Cleaned Meter Normal [facility] Comment on above: Result Comment: PERF ORMED BY: [place] [id number] PATHOLOGIST MICROCOMPUTER SUPPORT SPECIALIST CARLOS BIRMINGHAM M.D. Performed By: #### R ENAL #### [facility] [address] [place] [address] Glucose [Mass/Vol] 97 mg/dL Normal [facility] Comment on above: Result Comment: [facility] Glucose Reference Range is dependent on time and content of last meal. Glucose of more than 200 mg/dL in a nonstressed, ambulatory subject supports the diagnosis of Diabetes Mellitus. Performed By: #### R ENAL #### [facility] [address] [place] [address] [place] Glucose [Mass/Vol] 114 mg/dL Normal [facility] Comment on above: Result Comment: [facility] Glucose Reference Range is dependent on time and content of last meal. Glucose of more than 200 mg/dL in a nonstressed, ambulatory subject supports the diagnosis of Diabetes Mellitus. PERFORMED BY: [phone] PATHOLOGIST MICROCOMPUTER SUPPORT SPECIALIST CARLOS S VINNIE M.D. Performed By: #### H EPACUTE, HBCAB, HBSAB #### [facility] , Renal Function Panelon 01-11 Albumin [Mass/Vol] 3.0 g/dL Low 3.5-5.7 [facility] Comment on above: Performed By: #### H EPACUTE, HBCAB, HBSAB #### [facility] , Anion gap [Moles/Vol] 12.8 mmol/L Normal 6.0-15.0 [facility] Comment on above: Performed By: #### H EPACUTE, HBCAB, HBSAB #### [facility] , Calcium [Mass/Vol] 9.9 mg/dL Normal 8.6-10.3 [facility] Comment on above: Performed By: #### H EPACUTE, HBCAB, HBSAB #### [facility] , Chloride [Moles/Vol] 99 mmol/L Normal 98-107 [facility] Comment on above: Performed By: #### H EPACUTE, HBCAB, HBSAB #### [facility] , CO2 [Moles/Vol] 28.7 mmol/L Normal 21.0-31.0 [facility] Comment on above: Performed By: #### H EPACUTE, HBCAB, HBSAB #### [facility] , Creatinine [Mass/Vol] 6.77 mg/dL High 0.70-1.30 [facility] Comment on above: Performed By: #### H EPACUTE, HBCAB, HBSAB #### [facility] , Creatinine Clr Calc Pharmacy 15.34 Normal [facility] Comment on above: Result Comment: PERF ORMED BY: [place] [address] PATHOLOGIST MICROCOMPUTER SUPPORT SPECIALIST CARLOS BIRMINGHAM M.D. Performed By: #### H EPACUTE, HBCAB, HBSAB #### [facility] , GFR/1.73 sq M.predicted MDRD (S/P/Bld) [Vol rate/Area] 8.468 mL/min/{1.73_m2} Normal [facility] Comment on above: Performed By: #### H EPACUTE, HBCAB, HBSAB #### [facility] , Glucose [Mass/Vol] 115 mg/dL High 70-100 [facility] Comment on above: Result Comment: [facility] Glucose Reference Range is dependent on time and content of last meal. Glucose of more than 200 mg/dL in a nonstressed, ambulatory subject supports the diagnosis of Diabetes Mellitus. ADA recommended reference range Performed By: #### H EPACUTE, HBCAB, HBSAB #### [facility] , Phosphate [Mass/Vol] 4.5 mg/dL Normal 2.5-4.5 [facility] Comment on above: Performed By: #### H EPACUTE, HBCAB, HBSAB #### [facility] , Potassium [Moles/Vol] 4.5 mmol/L Normal 3.5-5.1 [facility] Comment on above: Result Comment: Hemo lysis is present at a level that could interfere with the result. Contact lab if redraw is required Performed By: #### H EPACUTE, HBCAB, HBSAB #### [facility] , Sodium [Moles/Vol] 136 mmol/L Normal 136-145 [facility] Comment on above: Performed By: #### H EPACUTE, HBCAB, HBSAB #### [facility] , Urea nitrogen [Mass/Vol] 44 mg/dL High 7-25 [facility] Comment on above: Performed By: #### H EPACUTE, HBCAB, HBSAB #### [facility] , Glucose Poct Glucometerson 0 01-10-2025 Glucose [Mass/Vol] 180 mg/dL Normal [facility] Comment on above: Result Comment: [facility] Glucose Reference Range is dependent on time and content of last meal. Glucose of more than 200 mg/dL in a nonstressed, ambulatory subject supports the diagnosis of Diabetes Mellitus. PERFORMED BY: [place] [address] PATHOLOGIST MICROCOMPUTER SUPPORT SPECIALIST CARLOS BIRMINGHAM M.D. Performed By: #### R ENAL #### [address] Glucose [Mass/Vol] 111 mg/dL Normal [facility] Comment on above: Result Comment: [facility] Glucose Reference Range is dependent on time and content of last meal. Glucose of more than 200 mg/dL in a nonstressed, ambulatory subject supports the diagnosis of Diabetes Mellitus. PERFORMED BY: [place] [address] PATHOLOGIST MICROCOMPUTER SUPPORT SPECIALIST CARLOS BIRMINGHAM M.D. Performed By: #### H EPACUTE, HBCAB, HBSAB #### [facility] , Commemt1 Glu2: Cleaned Meter Normal [facility] Comment on above: Result Comment: PERF ORMED BY: [place] [address] PATHOLOGIST MICROCOMPUTER SUPPORT SPECIALIST CARLOS BIRMINGHAM M.D. Performed By: #### H EPACUTE, HBCAB, HBSAB #### [facility] , Glucose [Mass/Vol] 130 mg/dL Normal [facility] Comment on above: Result Comment: [facility] Glucose Reference Range is dependent on time and content of last meal. Glucose of more than 200 mg/dL in a nonstressed, ambulatory subject supports the diagnosis of Diabetes Mellitus. Performed By: #### H EPACUTE, HBCAB, HBSAB #### [facility] , Glucose [Mass/Vol] 79 mg/dL Normal [facility] Comment on above: Result Comment: [facility] Glucose Reference Range is dependent on time and content of last meal. Glucose of more than 200 mg/dL in a nonstressed, ambulatory subject supports the diagnosis of Diabetes Mellitus. PERFORMED BY: [place] [address] PATHOLOGIST MICROCOMPUTER SUPPORT SPECIALIST CARLOS BIRMINGHAM M.D. Performed By: #### R ENAL #### [address] Glucose Poct Glucometerson 0 01-09-2025 Glucose [Mass/Vol] 187 mg/dL Normal [facility] Comment on above: Result Comment: [facility] Glucose Reference Range is dependent on time and content of last meal. Glucose of more than 200 mg/dL in a nonstressed, ambulatory subject supports the diagnosis of Diabetes Mellitus. PERFORMED BY: [place] [address] PATHOLOGIST MICROCOMPUTER SUPPORT SPECIALIST CARLOS BIRMINGHAM M.D. Performed By: #### H EPACUTE, HBCAB, HBSAB #### [facility] , Commemt1 Glu2: Cleaned Meter Normal [facility] Comment on above: Result Comment: PERF ORMED BY: [place] [address] PATHOLOGIST MICROCOMPUTER SUPPORT SPECIALIST CARLOS BIRMINGHAM M.D. Performed By: #### H EPACUTE, HBCAB, HBSAB #### [facility] , Glucose [Mass/Vol] 198 mg/dL Normal [facility] Comment on above: Result Comment: [facility] Glucose Reference Range is dependent on time and content of last meal. Glucose of more than 200 mg/dL in a nonstressed, ambulatory subject supports the diagnosis of Diabetes Mellitus. Performed By: #### H EPACUTE, HBCAB, HBSAB #### [facility] , Commemt1 Glu2: Cleaned Meter Normal [facility] Comment on above: Result Comment: PERF ORMED BY: [place] [address] PATHOLOGIST MICROCOMPUTER SUPPORT SPECIALIST CARLOS BIRMINGHAM M.D. Performed By: #### G LULS #### Point of Care testing , Glucose [Mass/Vol] 101 mg/dL Normal [facility] Comment on above: Result Comment: [facility] Glucose Reference Range is dependent on time and content of last meal. Glucose of more than 200 mg/dL in a nonstressed, ambulatory subject supports the diagnosis of Diabetes Mellitus. Performed By: #### G LULS #### Point of Care testing , Commemt1 Glu2: Cleaned Meter Normal [facility] Comment on above: Result Comment: PERF ORMED BY: [address] [place] [address] PATHOLOGIST MICROCOMPUTER SUPPORT SPECIALIST CARLOS BIRMINGHAM M.D. Performed By: #### G LULS #### Point of Care testing , Glucose [Mass/Vol] 61 mg/dL Normal [facility] Comment on above: Result Comment: [facility] (Bld) [#/Vol] 0.1 10*3/uL Normal 0.0-0.2 [facility] Comment on above: Result Comment: PERF ORMED BY: [address] [place] [address] PATHOLOGIST MICROCOMPUTER SUPPORT SPECIALIST CARLOS BIRMINGHAM M.D. Performed By: #### H EPACUTE, HBCAB, HBSAB #### [facility] , Basophils/100 WBC (Bld) 1.1 % Normal . [facility] Comment on above: Performed By: #### H EPACUTE, HBCAB, HBSAB #### [facility] , Eosinophils (Bld) [#/Vol] 0.5 10*3/uL High 0.0-0.45 [facility] Comment on above: Performed By: #### H EPACUTE, HBCAB, HBSAB #### [facility] , Eosinophils/100 WBC (Bld) 6.1 % Normal . [facility] Comment on above: Performed By: #### H EPACUTE, HBCAB, HBSAB #### [facility] , Erythrocyte distribution width (RBC) [Ratio] 14.5 % Normal 12.0-14.8 [facility] Comment on above: Performed By: #### H EPACUTE, HBCAB, HBSAB #### [facility] , Hematocrit (Bld) [Volume fraction] 24.9 % Low 38.8-50.0 [facility] Comment on above: Performed By: #### H EPACUTE, HBCAB, HBSAB #### [facility] , Hemoglobin (Bld) [Mass/Vol] 8.2 g/dL Low 13.0-17.0 [facility] Comment on above: Performed By: #### H EPACUTE, HBCAB, HBSAB #### [facility] , Lymphocytes (Bld) [#/Vol] 1.8 10*3/uL Normal 1.00-4.8 [facility] Comment on above: Performed By: #### H EPACUTE, HBCAB, HBSAB #### [facility] , Lymphocytes/100 WBC (Bld) 21.3 % Normal . [facility] Comment on above: Performed By: #### H EPACUTE, HBCAB, HBSAB #### [facility] , MCH (RBC) [Entitic mass] 29.3 pg Normal 27.5-35.2 [facility] Comment on above: Performed By: #### H EPACUTE, HBCAB, HBSAB #### [facility] , MCV (RBC) [Entitic vol] 88.6 fL Normal 83.5-101 [facility] Comment on above: Performed By: #### H EPACUTE, HBCAB, HBSAB #### [facility] , Mean Corpuscular HGB Conc 33.0 g/dL Normal 32.5-35.6 [facility] Comment on above: Performed By: #### H EPACUTE, HBCAB, HBSAB #### [facility] , Monocytes (Bld) [#/Vol] 0.9 10*3/uL High 0.0-0.8 [facility] Comment on above: Performed By: #### H EPACUTE, HBCAB, HBSAB #### [facility] , Monocytes/100 WBC (Bld) 10.9 % Normal . [facility] Comment on above: Performed By: #### H EPACUTE, HBCAB, HBSAB #### [facility] , Neutrophils (Bld) [#/Vol] 5.1 10*3/uL Normal 1.8-7.7 [facility] Comment on above: Performed By: #### H EPACUTE, HBCAB, HBSAB #### [facility] , Neutrophils/100 WBC (Bld) 60.6 % Normal . [facility] Comment on above: Performed By: #### H EPACUTE, HBCAB, HBSAB #### [facility] , NRBC% 0.1 /100{WBC} Normal 0-0.5 [facility] Comment on above: Performed By: #### H EPACUTE, HBCAB, HBSAB #### [facility] , Platelet mean volume (Bld) [Entitic vol] 6.0 fL Low 6.6-10.1 [facility] Comment on above: Performed By: #### H EPACUTE, HBCAB, HBSAB #### [facility] , Platelets (Bld) [#/Vol] 370 10*3/uL Normal 150-450 [facility] Comment on above: Performed By: #### H EPACUTE, HBCAB, HBSAB #### [facility] , RBC (Bld) [#/Vol] 2.82 10*6/uL Low 3.90-5.60 [facility] Comment on above: Performed By: #### H EPACUTE, HBCAB, HBSAB #### [facility] , WBC (Bld) [#/Vol] 8.4 10*3/uL Normal 4.1-10.5 [facility] Comment on above: Performed By: #### H EPACUTE, HBCAB, HBSAB #### [facility] , White Blood Count 8.4 [CFU]/mL Normal 4.1-10.5 [facility] Comment on above: Performed By: #### H EPACUTE, HBCAB, HBSAB #### [facility] , Glucose Poct Glucometerson 0 01-08-2025 Glucose [Mass/Vol] 207 mg/dL Normal [facility] Comment on above: Result Comment: [place] Glucose Reference Range is dependent on time and content of last meal. Glucose of more than 200 mg/dL in a nonstressed, ambulatory subject supports the diagnosis of Diabetes Mellitus. PERFORMED BY: [phone] PATHOLOGIST MICROC[employer]PUTER SUPPORT SPECIALIST CARLOS BIRMINGHAM M.D. Performed By: #### R ENAL #### [address] Glucose [Mass/Vol] 99 mg/dL Normal [facility] Comment on above: Result Comment: [place] [facility] Glucose Reference Range is dependent on time and content of last meal. Glucose of more than 200 mg/dL in a nonstressed, ambulatory subject supports the diagnosis of Diabetes Mellitus. PERFORMED BY: [place] [phone] PATHOLOGIST MICROCOMPUTER SUPPORT SPECIALIST CARLOS BIRMINGHAM M.D. Performed By: #### R ENAL, MG #### [address] Commemt1 Glu2: Cleaned Meter Normal [facility] Comment on above: Result Comment: PERF ORMED BY: [place] [phone] PATHOLOGIST MICROCOMPUTER SUPPORT SPECIALIST CARLOS BIRMINGHAM M.D. Performed By: #### G LULS #### Point of Care testing , Glucose [Mass/Vol] 122 mg/dL Normal [facility] Comment on above: Result Comment: [place] Glucose Reference Range is dependent on time and content of last meal. Glucose of more than 200 mg/dL in a nonstressed, ambulatory subject supports the diagnosis of Diabetes Mellitus. Performed By: #### G LULS #### Point of Care testing , Commemt1 Glu2: Cleaned Meter Normal [facility] Comment on above: Result Comment: PERF ORMED BY: [place] [address] PATHOLOGIST MICROCOMPUTER SUPPORT SPECIALIST CARLOS BIRMINGHAM M.D. Performed By: #### H EPACUTE, HBCAB, HBSAB #### [facility] , Glucose [Mass/Vol] 87 mg/dL Normal [facility] Comment on above: Result Comment: [facility] Glucose Reference Range is dependent on time and content of last meal. Glucose of more than 200 mg/dL in a nonstressed, ambulatory subject supports the diagnosis of Diabetes Mellitus. Performed By: #### H EPACUTE, HBCAB, HBSAB #### [facility] , Renal Function Panelon 01-08 Albumin [Mass/Vol] 3.1 g/dL Low 3.5-5.7 [facility] Comment on above: Performed By: #### R ENAL #### [address] Anion gap [Moles/Vol] 11.9 mmol/L Normal 6.0-15.0 [facility] Comment on above: Performed By: #### R ENAL #### [address] Calcium [Mass/Vol] 10.4 mg/dL High 8.6-10.3 [facility] Comment on above: Performed By: #### R ENAL #### [place] [address] [place] Chloride [Moles/Vol] 99 mmol/L Normal 98-107 [facility] Comment on above: Performed By: #### R ENAL #### [place] [address] [place] CO2 [Moles/Vol] 27.2 mmol/L Normal 21.0-31.0 [facility] Comment on above: Performed By: #### R ENAL #### [place] [address] [place] Creatinine [Mass/Vol] 5.10 mg/dL High 0.70-1.30 [facility] Comment on above: Performed By: #### R ENAL #### [address] Creatinine Clr Calc Pharmacy 20.08 Normal [facility] Comment on above: Result Comment: PERF ORMED BY: [place] [address] PATHOLOGIST MICROCOMPUTER SUPPORT SPECIALIST CARLOS BIRMINGHAM M.D. Performed By: #### R ENAL #### [place] [address] [place] GFR/1.73 sq M.predicted MDRD (S/P/Bld) [Vol rate/Area] 11.897 mL/min/{1.73_m2} Normal [facility] Comment on above: Performed By: #### R ENAL #### [address] Glucose [Mass/Vol] 90 mg/dL Normal 70-100 [facility] Comment on above: Result Comment: [facility] Glucose Reference Range is dependent on time and content of last meal. Glucose of more than 200 mg/dL in a nonstressed, ambulatory subject supports the diagnosis of Diabetes Mellitus. ADA recommended reference range Performed By: #### R ENAL #### [address] Phosphate [Mass/Vol] 4.1 mg/dL Normal 2.5-4.5 [facility] Comment on above: Performed By: #### R ENAL #### [place] [address] [place] Potassium [Moles/Vol] 4.1 mmol/L Normal 3.5-5.1 [facility] Comment on above: Performed By: #### R ENAL #### [address] Sodium [Moles/Vol] 134 mmol/L Low 136-145 [facility] Comment on above: Performed By: #### R ENAL #### [facility] [address] [place] [address] Urea nitrogen [Mass/Vol] 34 mg/dL High 7-25 [facility] Comment on above: Performed By: #### R ENAL #### [facility] [address] [place] [address] Glucose Poct Glucometerson 0 01-07-2025 Commemt1 Glu2: Cleaned Meter Normal [facility] Comment on above: Result Comment: PERF ORMED BY: [place] [address] PATHOLOGIST MICROCOMPUTER SUPPORT SPECIALIST CARLOS BIRMINGHAM M.D. Performed By: #### H EPACUTE, HBCAB, HBSAB #### [facility] , Glucose [Mass/Vol] 189 mg/dL Normal [facility] Comment on above: Result Comment: [place] [facility] Glucose Reference Range is dependent on time and content of last meal. Glucose of more than 200 mg/dL in a nonstressed, ambulatory subject supports the diagnosis of Diabetes Mellitus. Performed By: #### H EPACUTE, HBCAB, HBSAB #### [facility] , Glucose [Mass/Vol] 138 mg/dL Normal [facility] Comment on above: Result Comment: [place] [facility] Glucose Reference Range is dependent on time and content of last meal. Glucose of more than 200 mg/dL in a nonstressed, ambulatory subject supports the diagnosis of Diabetes Mellitus. PERFORMED BY: [place] [address] PATHOLOGIST MICROCOMPUTER SUPPORT SPECIALIST CARLOS BIRMINGHAM M.D. Performed By: #### G LULS #### Point of Care testing , Glucose [Mass/Vol] 131 mg/dL Normal [facility] Comment on above: Result Comment: [place] [facility] Glucose Reference Range is dependent on time and content of last meal. Glucose of more than 200 mg/dL in a nonstressed, ambulatory subject supports the diagnosis of Diabetes Mellitus. PERFORMED BY: [place] [address] PATHOLOGIST MICROCOMPUTER SUPPORT SPECIALIST CARLOS BIRMINGHAM M.D. Performed By: #### H EPACUTE, HBCAB, HBSAB #### [facility] , Glucose [Mass/Vol] 93 mg/dL Normal [facility] Comment on above: Result Comment: [place] [facility] Glucose Reference Range is dependent on time and content of last meal. Glucose of more than 200 mg/dL in a nonstressed, ambulatory subject supports the diagnosis of Diabetes Mellitus. PERFORMED BY: [place] [address] PATHOLOGIST MICROCOMPUTER SUPPORT SPECIALIST CARLOS BIRMINGHAM M.D. Performed By: #### H EPACUTE, HBCAB, HBSAB #### [facility] , Glucose Poct Glucometerson 0 01-06-2025 Glucose [Mass/Vol] 273 mg/dL Normal [facility] Comment on above: Result Comment: [place] [facility] Glucose Reference Range is dependent on time and content of last meal. Glucose of more than 200 mg/dL in a nonstressed, ambulatory subject supports the diagnosis of Diabetes Mellitus. PERFORMED BY: [place] [address] PATHOLOGIST MICROCOMPUTER SUPPORT SPECIALIST CARLOS BIRMINGHAM M.D. Performed By: #### H EPACUTE, HBCAB, HBSAB #### [facility] , Glucose [Mass/Vol] 147 mg/dL Normal [facility] Comment on above: Result Comment: [place] [facility] Glucose Reference Range is dependent on time and content of last meal. Glucose of more than 200 mg/dL in a nonstressed, ambulatory subject supports the diagnosis of Diabetes Mellitus. PERFORMED BY: [place] [address] PATHOLOGIST MICROCOMPUTER SUPPORT SPECIALIST CARLOS BIRMINGHAM M.D. Performed By: #### H EPACUTE, HBCAB, HBSAB #### [facility] , Commemt1 Glu2: Cleaned Meter Normal [facility] Comment on above: Result Comment: PERF ORMED BY: [place] [id number] PATHOLOGIST MICROCOMPUTER SUPPORT SPECIALIST CARLOS BIRMINGHAM M.D. Performed By: #### H EPACUTE, HBCAB, HBSAB #### [facility] , Glucose [Mass/Vol] 169 mg/dL Normal [facility] Comment on above: Result Comment: [facility] Glucose Reference Range is dependent on time and content of last meal. Glucose of more than 200 mg/dL in a nonstressed, ambulatory subject supports the diagnosis of Diabetes Mellitus. Performed By: #### H EPACUTE, HBCAB, HBSAB #### [facility] , Glucose [Mass/Vol] 99 mg/dL Normal [facility] Comment on above: Result Comment: [place] [facility] Glucose Reference Range is dependent on time and content of last meal. Glucose of more than 200 mg/dL in a nonstressed, ambulatory subject supports the diagnosis of Diabetes Mellitus. PERFORMED BY: [facility] [place] [address] PATHOLOGIST MICROCOMPUTER SUPPORT SPECIALIST CARLOS BIRMINGHAM M.D. Performed By: #### H EPACUTE, HBCAB, HBSAB #### [facility] , Diff and CBCon 01-05-2025 Anisocytosis Ql (Bld) Slight Normal [facility] Comment on above: Performed By: #### H EPACUTE, HBCAB, HBSAB #### [facility] , Band form neutrophils/100 WBC (Bld) 4 % Normal 0-5 [facility] Comment on above: Performed By: #### H EPACUTE, HBCAB, HBSAB #### [facility] , Eosinophils/100 WBC (Bld) 5 % High 1-3 [facility] Comment on above: Performed By: #### H EPACUTE, HBCAB, HBSAB #### [facility] , Erythrocyte distribution width (RBC) [Ratio] 14.2 % Normal 12.0-14.8 [facility] Comment on above: Performed By: #### H EPACUTE, HBCAB, HBSAB #### [facility] , Hematocrit (Bld) [Volume fraction] 25.2 % Low 38.8-50.0 [facility] Comment on above: Performed By: #### H EPACUTE, HBCAB, HBSAB #### [facility] , Hemoglobin (Bld) [Mass/Vol] 8.3 g/dL Low 13.0-17.0 [facility] Comment on above: Performed By: #### H EPACUTE, HBCAB, HBSAB #### [facility] , Large Platelets Slight Normal [facility] Comment on above: Result Comment: PERF ORMED BY: [facility] [address] [place] [address] PATHOLOGIST MICROCOMPUTER SUPPORT SPECIALIST CARLOS BIRMINGHAM M.D. Performed By: #### H EPACUTE, HBCAB, HBSAB #### [facility] , Lymphocytes/100 WBC (Bld) 17 % Low 18-42 [facility] Comment on above: Performed By: #### H EPACUTE, HBCAB, HBSAB #### [facility] , MCH (RBC) [Entitic mass] 29.1 pg Normal 27.5-35.2 [facility] Comment on above: Performed By: #### H EPACUTE, HBCAB, HBSAB #### [facility] , MCV (RBC) [Entitic vol] 88.7 fL Normal 83.5-101 [facility] Comment on above: Performed By: #### H EPACUTE, HBCAB, HBSAB #### [facility] , Mean Corpuscular HGB Conc 32.8 g/dL Normal 32.5-35.6 [facility] Comment on above: Performed By: #### H EPACUTE, HBCAB, HBSAB #### [facility] , Microcytosis Slight Normal [facility] Comment on above: Performed By: #### H EPACUTE, HBCAB, HBSAB #### [facility] , Monocytes/100 WBC (Bld) 6 % Normal 2-11 [facility] Comment on above: Performed By: #### H EPACUTE, HBCAB, HBSAB #### [facility] , Myelocytes 1 % High 0-0 [facility] Comment on above: Performed By: #### H EPACUTE, HBCAB, HBSAB #### [facility] , Platelet Estimate Normal Normal Normal [facility] Comment on above: Performed By: #### H EPACUTE, HBCAB, HBSAB #### [facility] , Platelet mean volume (Bld) [Entitic vol] 6.3 fL Low 6.6-10.1 [facility] Comment on above: Performed By: #### H EPACUTE, HBCAB, HBSAB #### [facility] , Platelets (Bld) [#/Vol] 349 10*3/uL Normal 150-450 [facility] Comment on above: Performed By: #### H EPACUTE, HBCAB, HBSAB #### [facility] , Poikilocytosis Slight Normal [facility] Comment on above: Performed By: #### H EPACUTE, HBCAB, HBSAB #### [facility] , Polychromasia Slight Normal [facility] Comment on above: Performed By: #### H EPACUTE, HBCAB, HBSAB #### [facility] , RBC (Bld) [#/Vol] 2.84 10*6/uL Low 3.90-5.60 [facility] Comment on above: Performed By: #### H EPACUTE, HBCAB, HBSAB #### [facility] , Segmented neutrophils/100 WBC (Bld) 68 % Normal 50-70 [facility] Comment on above: Performed By: #### H EPACUTE, HBCAB, HBSAB #### [facility] , Stomatocytes Slight Normal [facility] Comment on above: Performed By: #### H EPACUTE, HBCAB, HBSAB #### [facility] , WBC (Bld) [#/Vol] 9.3 10*3/uL Normal 4.1-10.5 [facility] Comment on above: Performed By: #### H EPACUTE, HBCAB, HBSAB #### [facility] , White Blood Count 9.3 [CFU]/mL Normal 4.1-10.5 [facility] Comment on above: Performed By: #### H EPACUTE, HBCAB, HBSAB #### [facility] , Glucose Poct Glucometerson 0 01-05-2025 Glucose [Mass/Vol] 209 mg/dL Normal [facility] Comment on above: Result Comment: [facility] Glucose Reference Range is dependent on time and content of last meal. Glucose of more than 200 mg/dL in a nonstressed, ambulatory subject supports the diagnosis of Diabetes Mellitus. PERFORMED BY: [place] [address] PATHOLOGIST MICROCOMPUTER SUPPORT SPECIALIST CARLOS BIRMINGHAM M.D. Performed By: #### R ENAL, MG #### [address] Glucose [Mass/Vol] 172 mg/dL Normal [facility] Comment on above: Result Comment: [facility] Glucose Reference Range is dependent on time and content of last meal. Glucose of more than 200 mg/dL in a nonstressed, ambulatory subject supports the diagnosis of Diabetes Mellitus. PERFORMED BY: [place] [address] PATHOLOGIST MICROCOMPUTER SUPPORT SPECIALIST CARLOS BIRMINGHAM M.D. Performed By: #### G LULS #### Point of Care testing , Glucose [Mass/Vol] 121 mg/dL Normal [facility] Comment on above: Result Comment: [facility] Glucose Reference Range is dependent on time and content of last meal. Glucose of more than 200 mg/dL in a nonstressed, ambulatory subject supports the diagnosis of Diabetes Mellitus. PERFORMED BY: [place] [address] PATHOLOGIST MICROCOMPUTER SUPPORT SPECIALIST CARLOS BIRMINGHAM M.D. Performed By: #### H EPACUTE, HBCAB, HBSAB #### [facility] , Glucose [Mass/Vol] 86 mg/dL Normal [facility] Comment on above: Result Comment: [facility] Glucose Reference Range is dependent on time and content of last meal. Glucose of more than 200 mg/dL in a nonstressed, ambulatory subject supports the diagnosis of Diabetes Mellitus. PERFORMED BY: [address] [place] [address] PATHOLOGIST MICROCOMPUTER SUPPORT SPECIALIST CARLOS BIRMINGHAM M.D. Performed By: #### H EPACUTE, HBCAB, HBSAB #### [facility] , Complete Blood Count Auto Di ffon 01-04-2025 Basophils (Bld) [#/Vol] 0.2 10*3/uL Normal 0.0-0.2 [facility] Comment on above: Result Comment: PERF ORMED BY: [facility] [address] [facility] [place] [address] PATHOLOGIST MICROCOMPUTER SUPPORT SPECIALIST CARLOS BIRMINGHAM M.D. Performed By: #### H EPACUTE, HBCAB, HBSAB #### [facility] , Basophils/100 WBC (Bld) 1.3 % Normal . [facility] Comment on above: Performed By: #### H EPACUTE, HBCAB, HBSAB #### [facility] , Eosinophils (Bld) [#/Vol] 0.6 10*3/uL High 0.0-0.45 [facility] Comment on above: Performed By: #### H EPACUTE, HBCAB, HBSAB #### [facility] , Eosinophils/100 WBC (Bld) 4.6 % Normal . [facility] Comment on above: Performed By: #### H EPACUTE, HBCAB, HBSAB #### [facility] , Erythrocyte distribution width (RBC) [Ratio] 14.0 % Normal 12.0-14.8 [facility] Comment on above: Performed By: #### H EPACUTE, HBCAB, HBSAB #### [facility] , Hematocrit (Bld) [Volume fraction] 27.3 % Low 38.8-50.0 [facility] Comment on above: Performed By: #### H EPACUTE, HBCAB, HBSAB #### [facility] , Hemoglobin (Bld) [Mass/Vol] 8.9 g/dL Low 13.0-17.0 [facility] Comment on above: Performed By: #### H EPACUTE, HBCAB, HBSAB #### [facility] , Lymphocytes (Bld) [#/Vol] 2.6 10*3/uL Normal 1.00-4.8 [facility] Comment on above: Performed By: #### H EPACUTE, HBCAB, HBSAB #### [facility] , Lymphocytes/100 WBC (Bld) 20.4 % Normal . [facility] Comment on above: Performed By: #### H EPACUTE, HBCAB, HBSAB #### [facility] , MCH (RBC) [Entitic mass] 28.9 pg Normal 27.5-35.2 [facility] Comment on above: Performed By: #### H EPACUTE, HBCAB, HBSAB #### [facility] , MCV (RBC) [Entitic vol] 88.7 fL Normal 83.5-101 [facility] Comment on above: Performed By: #### H EPACUTE, HBCAB, HBSAB #### [facility] , Mean Corpuscular HGB Conc 32.6 g/dL Normal 32.5-35.6 [facility] Comment on above: Performed By: #### H EPACUTE, HBCAB, HBSAB #### [facility] , Monocytes (Bld) [#/Vol] 0.9 10*3/uL High 0.0-0.8 [facility] Comment on above: Performed By: #### H EPACUTE, HBCAB, HBSAB #### [facility] , Monocytes/100 WBC (Bld) 7.1 % Normal . [facility] Comment on above: Performed By: #### H EPACUTE, HBCAB, HBSAB #### [facility] , Neutrophils (Bld) [#/Vol] 8.5 10*3/uL High 1.8-7.7 [facility] Comment on above: Performed By: #### H EPACUTE, HBCAB, HBSAB #### [facility] , Neutrophils/100 WBC (Bld) 66.6 % Normal . [facility] Comment on above: Performed By: #### H EPACUTE, HBCAB, HBSAB #### [facility] , NRBC% 0.0 /100{WBC} Normal 0-0.5 [facility] Comment on above: Performed By: #### H EPACUTE, HBCAB, HBSAB #### [facility] , Platelet mean volume (Bld) [Entitic vol] 6.8 fL Normal 6.6-10.1 [facility] Comment on above: Performed By: #### H EPACUTE, HBCAB, HBSAB #### [facility] , Platelets (Bld) [#/Vol] 381 10*3/uL Normal 150-450 [facility] Comment on above: Performed By: #### H EPACUTE, HBCAB, HBSAB #### [facility] , RBC (Bld) [#/Vol] 3.08 10*6/uL Low 3.90-5.60 [facility] Comment on above: Performed By: #### H EPACUTE, HBCAB, HBSAB #### [facility] , WBC (Bld) [#/Vol] 12.7 10*3/uL High 4.1-10.5 [facility] Comment on above: Performed By: #### H EPACUTE, HBCAB, HBSAB #### [facility] , White Blood Count 12.7 [CFU]/mL High 4.1-10.5 [facility] Comment on above: Performed By: #### H EPACUTE, HBCAB, HBSAB #### [facility] , Glucose Poct Glucometerson 0 01-04-2025 Glucose [Mass/Vol] 155 mg/dL Normal [facility] Comment on above: Result Comment: [facility] Glucose Reference Range is dependent on time and content of last meal. Glucose of more than 200 mg/dL in a nonstressed, ambulatory subject supports the diagnosis of Diabetes Mellitus. PERFORMED BY: [place] [address] PATHOLOGIST MICROCOMPUTER SUPPORT SPECIALIST CARLOS BIRMINGHAM M.D. Performed By: #### G LULS #### Point of Care testing , Glucose [Mass/Vol] 81 mg/dL Normal [facility] Comment on above: Result Comment: [facility] Glucose Reference Range is dependent on time and content of last meal. Glucose of more than 200 mg/dL in a nonstressed, ambulatory subject supports the diagnosis of Diabetes Mellitus. PERFORMED BY: [place] [address] PATHOLOGIST MICROCOMPUTER SUPPORT SPECIALIST CARLOS BIRMINGHAM M.D. Performed By: #### G LULS #### Point of Care testing , Commemt1 Glu2: Cleaned Meter Normal [facility] Comment on above: Result Comment: PERF ORMED BY: [place] [address] PATHOLOGIST MICROCOMPUTER SUPPORT SPECIALIST CARLOS BIRMINGHAM M.D. Performed By: #### R ENAL #### [address] Glucose [Mass/Vol] 120 mg/dL Normal [facility] Comment on above: Result Comment: [facility] Glucose Reference Range is dependent on time and content of last meal. Glucose of more than 200 mg/dL in a nonstressed, ambulatory subject supports the diagnosis of Diabetes Mellitus. Performed By: #### R ENAL #### [place] [address] [place] Glucose [Mass/Vol] 111 mg/dL Normal [facility] Comment on above: Result Comment: [facility] Glucose Reference Range is dependent on time and content of last meal. Glucose of more than 200 mg/dL in a nonstressed, ambulatory subject supports the diagnosis of Diabetes Mellitus. PERFORMED BY: [facility] [address] [place] [id number] PATHOLOGIST MICROCOMPUTER SUPPORT SPECIALIST CARLOS BIRMINGHAM M.D. Performed By: #### R ENAL #### [address] Renal Function Panelon 01-04 Albumin [Mass/Vol] 3.2 g/dL Low 3.5-5.7 [facility] Comment on above: Performed By: #### H EPACUTE, HBCAB, HBSAB #### [facility] , Anion gap [Moles/Vol] 13.1 mmol/L Normal 6.0-15.0 [facility] Comment on above: Performed By: #### H EPACUTE, HBCAB, HBSAB #### [facility] , Calcium [Mass/Vol] 10.0 mg/dL Normal 8.6-10.3 [facility] Comment on above: Performed By: #### H EPACUTE, HBCAB, HBSAB #### [facility] , Chloride [Moles/Vol] 97 mmol/L Low 98-107 [facility] Comment on above: Performed By: #### H EPACUTE, HBCAB, HBSAB #### [facility] , CO2 [Moles/Vol] 29.0 mmol/L Normal 21.0-31.0 [facility] Comment on above: Performed By: #### H EPACUTE, HBCAB, HBSAB #### [facility] , Creatinine [Mass/Vol] 6.38 mg/dL High 0.70-1.30 [facility] Comment on above: Performed By: #### H EPACUTE, HBCAB, HBSAB #### [facility] , Creatinine Clr Calc Pharmacy 16.00 Normal [facility] Comment on above: Result Comment: PERF ORMED BY: [facility] [address] PATHOLOGIST MICROCOMPUTER SUPPORT SPECIALIST CARLOS BIRMINGHAM M.D. Performed By: #### H EPACUTE, HBCAB, HBSAB #### [facility] , GFR/1.73 sq M.predicted MDRD (S/P/Bld) [Vol rate/Area] 9.094 mL/min/{1.73_m2} Normal [facility] Comment on above: Performed By: #### H EPACUTE, HBCAB, HBSAB #### [facility] , Glucose [Mass/Vol] 150 mg/dL High 70-100 [facility] Comment on above: Result Comment: [facility] Glucose Reference Range is dependent on time and content of last meal. Glucose of more than 200 mg/dL in a nonstressed, ambulatory subject supports the diagnosis of Diabetes Mellitus. ADA recommended reference range Performed By: #### H EPACUTE, HBCAB, HBSAB #### [facility] , Phosphate [Mass/Vol] 4.8 mg/dL High 2.5-4.5 [facility] Comment on above: Performed By: #### H EPACUTE, HBCAB, HBSAB #### [facility] , Potassium [Moles/Vol] 4.1 mmol/L Normal 3.5-5.1 [facility] Comment on above: Performed By: #### H EPACUTE, HBCAB, HBSAB #### [facility] , Sodium [Moles/Vol] 135 mmol/L Low 136-145 [facility] Comment on above: Performed By: #### H EPACUTE, HBCAB, HBSAB #### [facility] , Urea nitrogen [Mass/Vol] 47 mg/dL High 7-25 [facility] Comment on above: Performed By: #### H EPACUTE, HBCAB, HBSAB #### [facility] , Glucose Poct Glucometerson 0 01-03-2025 Glucose [Mass/Vol] 259 mg/dL Normal [facility] Comment on above: Result Comment: [facility] om Glucose Reference Range is dependent on time and content of last meal. Glucose of more than 200 mg/dL in a nonstressed, ambulatory subject supports the diagnosis of Diabetes Mellitus. PERFORMED BY: [place] [address] PATHOLOGIST MICROC[employer]PUTER SUPPORT SPECIALIST CARLOS BIRMINGHAM M.D. Performed By: #### R ENAL #### [address] Commemt1 Glu2: Cleaned Meter Normal [facility] Comment on above: Result Comment: PERF ORMED BY: [place] [address] PATHOLOGIST MICROCOMPUTER SUPPORT SPECIALIST CARLOS BIRMINGHAM M.D. Performed By: #### G LULS #### Point of Care testing , Glucose [Mass/Vol] 144 mg/dL Normal [facility] Comment on above: Result Comment: [facility] Glucose Reference Range is dependent on time and content of last meal. Glucose of more than 200 mg/dL in a nonstressed, ambulatory subject supports the diagnosis of Diabetes Mellitus. Performed By: #### G LULS #### Point of Care testing , Glucose [Mass/Vol] 157 mg/dL Normal [facility] Comment on above: Result Comment: [facility] Glucose Reference Range is dependent on time and content of last meal. Glucose of more than 200 mg/dL in a nonstressed, ambulatory subject supports the diagnosis of Diabetes Mellitus. PERFORMED BY: [place] [address] PATHOLOGIST MICROCOMPUTER SUPPORT SPECIALIST CARLOS BIRMINGHAM M.D. Performed By: #### H EPACUTE, HBCAB, HBSAB #### [facility] , Glucose [Mass/Vol] 104 mg/dL Normal [facility] Comment on above: Result Comment: [facility] om Glucose Reference Range is dependent on time and content of last meal. Glucose of more than 200 mg/dL in a nonstressed, ambulatory subject supports the diagnosis of Diabetes Mellitus. PERFORMED BY: [place] [address] PATHOLOGIST MICROCOMPUTER SUPPORT SPECIALIST CARLOS BIRMINGHAM M.D. Performed By: #### H EPACUTE, HBCAB, HBSAB #### [facility] , Glucose Poct Glucometerson 0 01-02-2025 Glucose [Mass/Vol] 184 mg/dL Normal [facility] Comment on above: Result Comment: [facility] Glucose Reference Range is dependent on time and content of last meal. Glucose of more than 200 mg/dL in a nonstressed, ambulatory subject supports the diagnosis of Diabetes Mellitus. PERFORMED BY: [place] [address] PATHOLOGIST MICROCOMPUTER SUPPORT SPECIALIST CARLOS BIRMINGHAM M.D. Performed By: #### H EPACUTE, HBCAB, HBSAB #### [facility] , Commemt1 Glu2: Cleaned Meter Normal [facility] Comment on above: Result Comment: PERF ORMED BY: [place] [address] PATHOLOGIST MICROCOMPUTER SUPPORT SPECIALIST CARLOS BIRMINGHAM M.D. Performed By: #### H EPACUTE, HBCAB, HBSAB #### [facility] , Glucose [Mass/Vol] 209 mg/dL Normal [facility] Comment on above: Result Comment: [facility] Glucose Reference Range is dependent on time and content of last meal. Glucose of more than 200 mg/dL in a nonstressed, ambulatory subject supports the diagnosis of Diabetes Mellitus. Performed By: #### H EPACUTE, HBCAB, HBSAB #### [facility] , Commemt1 Glu2: Cleaned Meter Normal [facility] Comment on above: Result Comment: PERF ORMED BY: [place] [id number] PATHOLOGIST MICROCOMPUTER SUPPORT SPECIALIST CARLOS BIRMINGHAM M.D. Performed By: #### G LULS #### Point of Care testing , Glucose [Mass/Vol] 212 mg/dL Normal [facility] Comment on above: Result Comment: [facility] om Glucose Reference Range is dependent on time and content of last meal. Glucose of more than 200 mg/dL in a nonstressed, ambulatory subject supports the diagnosis of Diabetes Mellitus. Performed By: #### G LULS #### Point of Care testing , Glucose [Mass/Vol] 170 mg/dL Normal [facility] Comment on above: Result Comment: [facility] Glucose Reference Range is dependent on time and content of last meal. Glucose of more than 200 mg/dL in a nonstressed, ambulatory subject supports the diagnosis of Diabetes Mellitus. PERFORMED BY: [place] [id number] PATHOLOGIST MICROCOMPUTER SUPPORT SPECIALIST CARLOS BIRMINGHAM M.D. Performed By: #### H EPACUTE, HBCAB, HBSAB #### [facility] , Glucose Poct Glucometerson 0 01-01-2025 Glucose [Mass/Vol] 302 mg/dL Normal [facility] Comment on above: Result Comment: [facility] Glucose Reference Range is dependent on time and content of last meal. Glucose of more than 200 mg/dL in a nonstressed, ambulatory subject supports the diagnosis of Diabetes Mellitus. PERFORMED BY: [address] [address] PATHOLOGIST MICROCOMPUTER SUPPORT SPECIALIST CARLOS BIRMINGHAM M.D. Performed By: #### H EPACUTE, HBCAB, HBSAB #### [facility] , Glucose [Mass/Vol] 146 mg/dL Normal [facility] Comment on above: Result Comment: [facility] Glucose Reference Range is dependent on time and content of last meal. Glucose of more than 200 mg/dL in a nonstressed, ambulatory subject supports the diagnosis of Diabetes Mellitus. PERFORMED BY: [address] [address] PATHOLOGIST MICROCOMPUTER SUPPORT SPECIALIST CARLOS BIRMINGHAM M.D. Performed By: #### G LULS #### Point of Care testing , Glucose [Mass/Vol] 250 mg/dL Normal [facility] Comment on above: Result Comment: [facility] Glucose Reference Range is dependent on time and content of last meal. Glucose of more than 200 mg/dL in a nonstressed, ambulatory subject supports the diagnosis of Diabetes Mellitus. PERFORMED BY: [place] [address] PATHOLOGIST MICROCOMPUTER SUPPORT SPECIALIST CARLOS BIRMINGHAM M.D. Performed By: #### G LULS #### Point of Care testing , Glucose [Mass/Vol] 126 mg/dL Normal [facility] Comment on above: Result Comment: [facility] Glucose Reference Range is dependent on time and content of last meal. Glucose of more than 200 mg/dL in a nonstressed, ambulatory subject supports the diagnosis of Diabetes Mellitus. PERFORMED BY: [place] [address] PATHOLOGIST MICROCOMPUTER SUPPORT SPECIALIST CARLOS BIRMINGHAM M.D. Performed By: #### G LULS #### Point of Care testing , Renal Function Panelon 01-01 Albumin [Mass/Vol] 3.4 g/dL Low 3.5-5.7 [facility] Comment on above: Performed By: #### R ENAL, MG #### [address] Anion gap [Moles/Vol] 15.3 mmol/L High 6.0-15.0 [facility] Comment on above: Performed By: #### R ENAL, MG #### [facility] [address] [place] [address] Calcium [Mass/Vol] 9.4 mg/dL Normal 8.6-10.3 [facility] Comment on above: Performed By: #### R ENAL, MG #### [place] [address] [place] Chloride [Moles/Vol] 95 mmol/L Low 98-107 [facility] Comment on above: Performed By: #### R ENAL, MG #### [facility] [address] [place] [address] [place] CO2 [Moles/Vol] 27.6 mmol/L Normal 21.0-31.0 [facility] Comment on above: Performed By: #### R ENAL, MG #### [address] Creatinine [Mass/Vol] 5.49 mg/dL High 0.70-1.30 [facility] Comment on above: Performed By: #### R ENAL, MG #### [address] Creatinine Clr Calc Pharmacy 18.47 Normal [facility] Comment on above: Result Comment: PERF ORMED BY: [place] [address] PATHOLOGIST MICROCOMPUTER SUPPORT SPECIALIST CARLOS BIRMINGHAM M.D. Performed By: #### R ENAL, MG #### [place] [address] [place] GFR/1.73 sq M.predicted MDRD (S/P/Bld) [Vol rate/Area] 10.890 mL/min/{1.73_m2} Normal [facility] Comment on above: Performed By: #### R ENAL, MG #### [address] Glucose [Mass/Vol] 205 mg/dL High 70-100 [facility] Comment on above: Result Comment: [facility] Glucose Reference Range is dependent on time and content of last meal. Glucose of more than 200 mg/dL in a nonstressed, ambulatory subject supports the diagnosis of Diabetes Mellitus. ADA recommended reference range Performed By: #### R ENAL, MG #### [place] [address] [place] Phosphate [Mass/Vol] 4.8 mg/dL High 2.5-4.5 [facility] Comment on above: Performed By: #### R ENAL, MG #### [place] [address] [place] Potassium [Moles/Vol] 3.9 mmol/L Normal 3.5-5.1 [facility] Comment on above: Performed By: #### R ENAL, MG #### [place] [address] [place] Sodium [Moles/Vol] 134 mmol/L Low 136-145 [facility] Comment on above: Performed By: #### R ENAL, MG #### [address] Urea nitrogen [Mass/Vol] 42 mg/dL High 7-25 [facility] Comment on above: Performed By: #### R ENAL, MG #### [address] Complete Blood Count Auto Di ffon 12-31-2024 Basophils (Bld) [#/Vol] 0.1 10*3/uL Normal 0.0-0.2 [facility] Comment on above: Result Comment: PERF ORMED BY: [place] [address] PATHOLOGIST MICROCOMPUTER SUPPORT SPECIALIST CARLOS BIRMINGHAM M.D. Performed By: #### H EPACUTE, HBCAB, HBSAB #### [facility] , Basophils/100 WBC (Bld) 0.8 % Normal . [facility] Comment on above: Performed By: #### H EPACUTE, HBCAB, HBSAB #### [facility] , Eosinophils (Bld) [#/Vol] 0.4 10*3/uL Normal 0.0-0.45 [facility] Comment on above: Performed By: #### H EPACUTE, HBCAB, HBSAB #### [facility] , Eosinophils/100 WBC (Bld) 4.5 % Normal . [facility] Comment on above: Performed By: #### H EPACUTE, HBCAB, HBSAB #### [facility] , Erythrocyte distribution width (RBC) [Ratio] 14.2 % Normal 12.0-14.8 [facility] Comment on above: Performed By: #### H EPACUTE, HBCAB, HBSAB #### [facility] , Hematocrit (Bld) [Volume fraction] 28.1 % Low 38.8-50.0 [facility] Comment on above: Performed By: #### H EPACUTE, HBCAB, HBSAB #### [facility] , Hemoglobin (Bld) [Mass/Vol] 9.1 g/dL Low 13.0-17.0 [facility] Comment on above: Performed By: #### H EPACUTE, HBCAB, HBSAB #### [facility] , Lymphocytes (Bld) [#/Vol] 1.8 10*3/uL Normal 1.00-4.8 [facility] Comment on above: Performed By: #### H EPACUTE, HBCAB, HBSAB #### [facility] , Lymphocytes/100 WBC (Bld) 19.4 % Normal . [facility] Comment on above: Performed By: #### H EPACUTE, HBCAB, HBSAB #### [facility] , MCH (RBC) [Entitic mass] 28.6 pg Normal 27.5-35.2 [facility] Comment on above: Performed By: #### H EPACUTE, HBCAB, HBSAB #### [facility] , MCV (RBC) [Entitic vol] 88.5 fL Normal 83.5-101 [facility] Comment on above: Performed By: #### H EPACUTE, HBCAB, HBSAB #### [facility] , Mean Corpuscular HGB Conc 32.3 g/dL Low 32.5-35.6 [facility] Comment on above: Performed By: #### H EPACUTE, HBCAB, HBSAB #### [facility] , Monocytes (Bld) [#/Vol] 1.4 10*3/uL High 0.0-0.8 [facility] Comment on above: Performed By: #### H EPACUTE, HBCAB, HBSAB #### [facility] , Monocytes/100 WBC (Bld) 15.2 % Normal . [facility] Comment on above: Performed By: #### H EPACUTE, HBCAB, HBSAB #### [facility] , Neutrophils (Bld) [#/Vol] 5.5 10*3/uL Normal 1.8-7.7 [facility] Comment on above: Performed By: #### H EPACUTE, HBCAB, HBSAB #### [facility] , Neutrophils/100 WBC (Bld) 60.1 % Normal . [facility] Comment on above: Performed By: #### H EPACUTE, HBCAB, HBSAB #### [facility] , NRBC% 0.1 /100{WBC} Normal 0-0.5 [facility] Comment on above: Performed By: #### H EPACUTE, HBCAB, HBSAB #### [facility] , Platelet mean volume (Bld) [Entitic vol] 6.4 fL Low 6.6-10.1 [facility] Comment on above: Performed By: #### H EPACUTE, HBCAB, HBSAB #### [facility] , Platelets (Bld) [#/Vol] 246 10*3/uL Normal 150-450 [facility] Comment on above: Performed By: #### H EPACUTE, HBCAB, HBSAB #### [facility] , RBC (Bld) [#/Vol] 3.18 10*6/uL Low 3.90-5.60 [facility] Comment on above: Performed By: #### H EPACUTE, HBCAB, HBSAB #### [facility] , WBC (Bld) [#/Vol] 9.2 10*3/uL Normal 4.1-10.5 [facility] Comment on above: Performed By: #### H EPACUTE, HBCAB, HBSAB #### [facility] , White Blood Count 9.2 [CFU]/mL Normal 4.1-10.5 [facility] Comment on above: Performed By: #### H EPACUTE, HBCAB, HBSAB #### [facility] , Comprehensive Metabolic Pane babatunde 12-31-2024 Albumin [Mass/Vol] 3.1 g/dL Low 3.5-5.7 [facility] Comment on above: Performed By: #### H EPACUTE, HBCAB, HBSAB #### [facility] , Albumin/Globulin [Mass ratio] 1.0 {ratio} Normal [facility] Comment on above: Performed By: #### H EPACUTE, HBCAB, HBSAB #### [facility] , ALP [Catalytic activity/Vol] 59 U/L Normal 34-104 [facility] Comment on above: Performed By: #### H EPACUTE, HBCAB, HBSAB #### [facility] , ALT [Catalytic activity/Vol] 3 U/L Low 7-52 [facility] Comment on above: Performed By: #### H EPACUTE, HBCAB, HBSAB #### [facility] , Anion gap [Moles/Vol] 12.1 mmol/L Normal 6.0-15.0 [facility] Comment on above: Performed By: #### H EPACUTE, HBCAB, HBSAB #### [facility] , AST [Catalytic activity/Vol] 21 U/L Normal 13-39 [facility] Comment on above: Performed By: #### H EPACUTE, HBCAB, HBSAB #### [facility] , Bilirubin [Mass/Vol] 0.7 mg/dL Normal 0.3-1.0 [facility] Comment on above: Performed By: #### H EPACUTE, HBCAB, HBSAB #### [facility] , Calcium [Mass/Vol] 8.9 mg/dL Normal 8.6-10.3 [facility] Comment on above: Performed By: #### H EPACUTE, HBCAB, HBSAB #### [facility] , Chloride [Moles/Vol] 99 mmol/L Normal 98-107 [facility] Comment on above: Performed By: #### H EPACUTE, HBCAB, HBSAB #### [facility] , CO2 [Moles/Vol] 27.7 mmol/L Normal 21.0-31.0 [facility] Comment on above: Performed By: #### H EPACUTE, HBCAB, HBSAB #### [facility] , Creatinine [Mass/Vol] 4.23 mg/dL High 0.70-1.30 [facility] Comment on above: Performed By: #### H EPACUTE, HBCAB, HBSAB #### [facility] , Creatinine Clr Calc Pharmacy 23.76 Normal [facility] Comment on above: Performed By: #### H EPACUTE, HBCAB, HBSAB #### [facility] , GFR/1.73 sq M.predicted MDRD (S/P/Bld) [Vol rate/Area] 14.891 mL/min/{1.73_m2} Normal [facility] Comment on above: Performed By: #### H EPACUTE, HBCAB, HBSAB #### [facility] , Globulin (S) [Mass/Vol] 3.1 g/dL Normal [facility] Comment on above: Performed By: #### H EPACUTE, HBCAB, HBSAB #### [facility] , Glucose [Mass/Vol] 143 mg/dL High 70-100 [facility] Comment on above: Result Comment: [facility] Glucose Reference Range is dependent on time and content of last meal. Glucose of more than 200 mg/dL in a nonstressed, ambulatory subject supports the diagnosis of Diabetes Mellitus. ADA recommended reference range Performed By: #### H EPACUTE, HBCAB, HBSAB #### [facility] , Potassium [Moles/Vol] 3.8 mmol/L Normal 3.5-5.1 [facility] Comment on above: Performed By: #### H EPACUTE, HBCAB, HBSAB #### [facility] , Protein [Mass/Vol] 6.2 g/dL Low 6.4-8.9 [facility] Comment on above: Performed By: #### H EPACUTE, HBCAB, HBSAB #### [facility] , Sodium [Moles/Vol] 135 mmol/L Low 136-145 [facility] Comment on above: Performed By: #### H EPACUTE, HBCAB, HBSAB #### [facility] , Urea nitrogen [Mass/Vol] 33 mg/dL High 7-25 [facility] Comment on above: Performed By: #### H EPACUTE, HBCAB, HBSAB #### [facility] , Glucose Poct Glucometerson 0 12-31-2024 Glucose [Mass/Vol] 272 mg/dL Normal [facility] Comment on above: Result Comment: [facility] Glucose Reference Range is dependent on time and content of last meal. Glucose of more than 200 mg/dL in a nonstressed, ambulatory subject supports the diagnosis of Diabetes Mellitus. PERFORMED BY: [place] [address] PATHOLOGIST MICROCOMPUTER SUPPORT SPECIALIST CARLOS BIRMINGHAM M.D. Performed By: #### G LULS #### Point of Care testing , Glucose [Mass/Vol] 262 mg/dL Normal [facility] Comment on above: Result Comment: [facility] Glucose Reference Range is dependent on time and content of last meal. Glucose of more than 200 mg/dL in a nonstressed, ambulatory subject supports the diagnosis of Diabetes Mellitus. PERFORMED BY: [place] [id number] PATHOLOGIST MICROCOMPUTER SUPPORT SPECIALIST CARLOS BIRMINGHAM M.D. Performed By: #### R ENAL, MG #### [address] Glucose [Mass/Vol] 195 mg/dL Normal [facility] Comment on above: Result Comment: [facility] Glucose Reference Range is dependent on time and content of last meal. Glucose of more than 200 mg/dL in a nonstressed, ambulatory subject supports the diagnosis of Diabetes Mellitus. PERFORMED BY: [address] [place] [address] PATHOLOGIST MICROCOMPUTER SUPPORT SPECIALIST CARLOS BIRMINGHAM M.D. Performed By: #### R YUMIKO, MG #### [address] Glucose [Mass/Vol] 170 mg/dL Normal [facility] Comment on above: Result Comment: [facility] Glucose Reference Range is dependent on time and content of last meal. Glucose of more than 200 mg/dL in a nonstressed, ambulatory subject supports the diagnosis of Diabetes Mellitus. PERFORMED BY: [place] [address] PATHOLOGIST MICROCOMPUTER SUPPORT SPECIALIST CARLOS BIRMINGHAM M.D. Performed By: #### G LUBRANDY #### Point of Care testing , Prealbuminon 12-31-2024 Prealbumin [Mass/Vol] 16.6 mg/dL Low 17.0-34.0 [facility] Comment on above: Result Comment: PERF ORMED BY: [place] [address] PATHOLOGIST MICROCOMPUTER SUPPORT SPECIALIST CARLOS BIRMINGHAM M.D. Performed By: #### H EPACUTE, HBCAB, HBSAB #### [facility] , Comprehensive Metabolic Pane babatunde 12-30-2024 Albumin [Mass/Vol] 3.1 g/dL Low 3.5-5.7 [facility] Comment on above: Performed By: #### H EPACUTE, HBCAB, HBSAB #### [facility] , Albumin/Globulin [Mass ratio] 0.9 {ratio} Normal [facility] Comment on above: Performed By: #### H EPACUTE, HBCAB, HBSAB #### [facility] , ALP [Catalytic activity/Vol] 68 U/L Normal 34-104 [facility] Comment on above: Performed By: #### H EPACUTE, HBCAB, HBSAB #### [facility] , ALT [Catalytic activity/Vol] U/L Low 7-52 [facility] Comment on above: Performed By: #### H EPACUTE, HBCAB, HBSAB #### [facility] , Anion gap [Moles/Vol] 15.4 mmol/L High 6.0-15.0 [facility] Comment on above: Performed By: #### H EPACUTE, HBCAB, HBSAB #### [facility] , AST [Catalytic activity/Vol] 22 U/L Normal 13-39 [facility] Comment on above: Performed By: #### H EPACUTE, HBCAB, HBSAB #### [facility] , Bilirubin [Mass/Vol] 0.5 mg/dL Normal 0.3-1.0 [facility] Comment on above: Performed By: #### H EPACUTE, HBCAB, HBSAB #### [facility] , Calcium [Mass/Vol] 8.9 mg/dL Normal 8.6-10.3 [facility] Comment on above: Performed By: #### H EPACUTE, HBCAB, HBSAB #### [facility] , Chloride [Moles/Vol] 98 mmol/L Normal 98-107 [facility] Comment on above: Performed By: #### H EPACUTE, HBCAB, HBSAB #### [facility] , CO2 [Moles/Vol] 25.5 mmol/L Normal 21.0-31.0 [facility] Comment on above: Performed By: #### H EPACUTE, HBCAB, HBSAB #### [facility] , Creatinine [Mass/Vol] 6.08 mg/dL High 0.70-1.30 [facility] Comment on above: Performed By: #### H EPACUTE, HBCAB, HBSAB #### [facility] , Creatinine Clr Calc Pharmacy 16.59 Normal [facility] Comment on above: Performed By: #### H EPACUTE, HBCAB, HBSAB #### [facility] , GFR/1.73 sq M.predicted MDRD (S/P/Bld) [Vol rate/Area] 9.635 mL/min/{1.73_m2} Normal [facility] Comment on above: Performed By: #### H EPACUTE, HBCAB, HBSAB #### [facility] , Globulin (S) [Mass/Vol] 3.5 g/dL Normal [facility] Comment on above: Performed By: #### H EPACUTE, HBCAB, HBSAB #### [facility] , Glucose [Mass/Vol] 108 mg/dL High 70-100 [facility] Comment on above: Result Comment: [facility] Glucose Reference Range is dependent on time and content of last meal. Glucose of more than 200 mg/dL in a nonstressed, ambulatory subject supports the diagnosis of Diabetes Mellitus. ADA recommended reference range Performed By: #### H EPACUTE, HBCAB, HBSAB #### [facility] , Potassium [Moles/Vol] 3.9 mmol/L Normal 3.5-5.1 [facility] Comment on above: Performed By: #### H EPACUTE, HBCAB, HBSAB #### [facility] , Protein [Mass/Vol] 6.6 g/dL Normal 6.4-8.9 [facility] Comment on above: Performed By: #### H EPACUTE, HBCAB, HBSAB #### [facility] , Sodium [Moles/Vol] 135 mmol/L Low 136-145 [facility] Comment on above: Performed By: #### H EPACUTE, HBCAB, HBSAB #### [facility] , Urea nitrogen [Mass/Vol] 54 mg/dL High 7-25 [facility] Comment on above: Performed By: #### H EPACUTE, HBCAB, HBSAB #### [facility] , Diff and CBCon 12-30-2024 Anisocytosis Ql (Bld) Moderate Normal [facility] Comment on above: Performed By: #### H EPACUTE, HBCAB, HBSAB #### [facility] , Band form neutrophils/100 WBC (Bld) 1 % Normal 0-5 [facility] Comment on above: Performed By: #### H EPACUTE, HBCAB, HBSAB #### [facility] , Eosinophils/100 WBC (Bld) 8 % High 1-3 [facility] Comment on above: Performed By: #### H EPACUTE, HBCAB, HBSAB #### [facility] , Erythrocyte distribution width (RBC) [Ratio] 14.1 % Normal 12.0-14.8 [facility] Comment on above: Performed By: #### H EPACUTE, HBCAB, HBSAB #### [facility] , Hematocrit (Bld) [Volume fraction] 29.7 % Low 38.8-50.0 [facility] Comment on above: Performed By: #### H EPACUTE, HBCAB, HBSAB #### [facility] , Hemoglobin (Bld) [Mass/Vol] 9.9 g/dL Low 13.0-17.0 [facility] Comment on above: Performed By: #### H EPACUTE, HBCAB, HBSAB #### [facility] , Hypochromasia Slight Normal [facility] Comment on above: Performed By: #### H EPACUTE, HBCAB, HBSAB #### [facility] , Lymphocytes/100 WBC (Bld) 10 % Low 18-42 [facility] Comment on above: Performed By: #### H EPACUTE, HBCAB, HBSAB #### [facility] , MCH (RBC) [Entitic mass] 29.1 pg Normal 27.5-35.2 [facility] Comment on above: Performed By: #### H EPACUTE, HBCAB, HBSAB #### [facility] , MCV (RBC) [Entitic vol] 87.6 fL Normal 83.5-101 [facility] Comment on above: Performed By: #### H EPACUTE, HBCAB, HBSAB #### [facility] , Mean Corpuscular HGB Conc 33.3 g/dL Normal 32.5-35.6 [facility] Comment on above: Performed By: #### H EPACUTE, HBCAB, HBSAB #### [facility] , Metamyelocytes 3 % High 0-0 [facility] Comment on above: Performed By: #### H EPACUTE, HBCAB, HBSAB #### [facility] , Microcytosis Slight Normal [facility] Comment on above: Performed By: #### H EPACUTE, HBCAB, HBSAB #### [facility] , Monocytes/100 WBC (Bld) 7 % Normal 2-11 [facility] Comment on above: Performed By: #### H EPACUTE, HBCAB, HBSAB #### [facility] , Platelet Estimate Normal Normal Normal [facility] Comment on above: Performed By: #### H EPACUTE, HBCAB, HBSAB #### [facility] , Platelet mean volume (Bld) [Entitic vol] 6.7 fL Normal 6.6-10.1 [facility] Comment on above: Performed By: #### H EPACUTE, HBCAB, HBSAB #### [facility] , Platelet Morphology Normal Normal Normal [facility] Comment on above: Result Comment: PERF ORMED BY: [facility] [address] [place] [address] PATHOLOGIST MICROCOMPUTER SUPPORT SPECIALIST CARLOS BIRMINGHAM M.D. Performed By: #### H EPACUTE, HBCAB, HBSAB #### [facility] , Platelets (Bld) [#/Vol] 237 10*3/uL Normal 150-450 [facility] Comment on above: Performed By: #### H EPACUTE, HBCAB, HBSAB #### [facility] , Poikilocytosis Slight Normal [facility] Comment on above: Performed By: #### H EPACUTE, HBCAB, HBSAB #### [facility] , Polychromasia Slight Normal [facility] Comment on above: Performed By: #### H EPACUTE, HBCAB, HBSAB #### [facility] , RBC (Bld) [#/Vol] 3.39 10*6/uL Low 3.90-5.60 [facility] Comment on above: Performed By: #### H EPACUTE, HBCAB, HBSAB #### [facility] , Segmented neutrophils/100 WBC (Bld) 72 % High 50-70 [facility] Comment on above: Performed By: #### H EPACUTE, HBCAB, HBSAB #### [facility] , WBC (Bld) [#/Vol] 10.1 10*3/uL Normal 4.1-10.5 [facility] Comment on above: Performed By: #### H EPACUTE, HBCAB, HBSAB #### [facility] , White Blood Count 10.1 [CFU]/mL Normal 4.1-10.5 [facility] Comment on above: Performed By: #### H EPACUTE, HBCAB, HBSAB #### [facility] , Glucose Poct Glucometerson 0 12-30-2024 Glucose [Mass/Vol] 187 mg/dL Normal [facility] Comment on above: Result Comment: [facility] Glucose Reference Range is dependent on time and content of last meal. Glucose of more than 200 mg/dL in a nonstressed, ambulatory subject supports the diagnosis of Diabetes Mellitus. PERFORMED BY: [place] [address] [place] [address] PATHOLOGIST MICROCOMPUTER SUPPORT SPECIALIST CARLOS BIRMINGHAM M.D. Performed By: #### G LULS #### Point of Care testing , Glucose [Mass/Vol] 269 mg/dL Normal [facility] Comment on above: Result Comment: [facility] Glucose Reference Range is dependent on time and content of last meal. Glucose of more than 200 mg/dL in a nonstressed, ambulatory subject supports the diagnosis of Diabetes Mellitus. PERFORMED BY: [place] [address] PATHOLOGIST MICROCOMPUTER SUPPORT SPECIALIST CARLOS BIRMINGHAM M.D. Performed By: #### R ENAL, MG #### [address] Commemt1 Glu2: Cleaned Meter Normal [facility] Comment on above: Result Comment: PERF ORMED BY: [place] [address] PATHOLOGIST MICROCOMPUTER SUPPORT SPECIALIST CARLOS BIRMINGHAM M.D. Performed By: #### G LULS #### Point of Care testing , Glucose [Mass/Vol] 109 mg/dL Normal [facility] Comment on above: Result Comment: [facility] Glucose Reference Range is dependent on time and content of last meal. Glucose of more than 200 mg/dL in a nonstressed, ambulatory subject supports the diagnosis of Diabetes Mellitus. Performed By: #### G LULS #### Point of Care testing , Glucose [Mass/Vol] 109 mg/dL Normal [facility] Comment on above: Result Comment: [facility] Glucose Reference Range is dependent on time and content of last meal. Glucose of more than 200 mg/dL in a nonstressed, ambulatory subject supports the diagnosis of Diabetes Mellitus. PERFORMED BY: [place] [address] PATHOLOGIST MICROCOMPUTER SUPPORT SPECIALIST CARLOS BIRMINGHAM M.D. Performed By: #### G LULS #### Point of Care testing , Magnesiumon 12-30-2024 Magnesium [Mass/Vol] 2.6 mg/dL Normal 1.9-2.7 [facility] Comment on above: Result Comment: PERF ORMED BY: [place] [address] PATHOLOGIST MICROCOMPUTER SUPPORT SPECIALIST CARLOS BIRMINGHAM M.D. Performed By: #### H EPACUTE, HBCAB, HBSAB #### [facility] , A1C with Estimated Average G luon 12-29-2024 Glucose [Mass/Vol] 255 mg/dL Normal [facility] Comment on above: Result Comment: PERF ORMED BY: [place] [address] PATHOLOGIST MICROCOMPUTER SUPPORT SPECIALIST CARLOS BIRMINGHAM M.D. Performed By: #### H EPACUTE, HBCAB, HBSAB #### [facility] , HbA1c (Bld) [Mass fraction] 10.5 % High 4.3-5.6 [facility] Comment on above: Result Comment: Incr eased risk for diabetes: 5.7 - 6.4 diabetes: >6.4 glycemic control for adults with diabetes: <7.0 Performed By: #### H EPACUTE, HBCAB, HBSAB #### [facility] , Comprehensive Metabolic Pane babatunde 12-29-2024 Albumin [Mass/Vol] 3.1 g/dL Low 3.5-5.7 [facility] Comment on above: Performed By: #### H EPACUTE, HBCAB, HBSAB #### [facility] , Albumin/Globulin [Mass ratio] 0.9 {ratio} Normal [facility] Comment on above: Performed By: #### H EPACUTE, HBCAB, HBSAB #### [facility] , ALP [Catalytic activity/Vol] 69 U/L Normal 34-104 [facility] Comment on above: Performed By: #### H EPACUTE, HBCAB, HBSAB #### [facility] , ALT [Catalytic activity/Vol] 3 U/L Low 7-52 [facility] Comment on above: Performed By: #### H EPACUTE, HBCAB, HBSAB #### [facility] , Anion gap [Moles/Vol] 12.2 mmol/L Normal 6.0-15.0 [facility] Comment on above: Performed By: #### H EPACUTE, HBCAB, HBSAB #### [facility] , AST [Catalytic activity/Vol] 21 U/L Normal 13-39 [facility] Comment on above: Performed By: #### H EPACUTE, HBCAB, HBSAB #### [facility] , Bilirubin [Mass/Vol] 0.6 mg/dL Normal 0.3-1.0 [facility] Comment on above: Performed By: #### H EPACUTE, HBCAB, HBSAB #### [facility] , Calcium [Mass/Vol] 8.9 mg/dL Normal 8.6-10.3 [facility] Comment on above: Performed By: #### H EPACUTE, HBCAB, HBSAB #### [facility] , Chloride [Moles/Vol] 95 mmol/L Low 98-107 [facility] Comment on above: Performed By: #### H EPACUTE, HBCAB, HBSAB #### [facility] , CO2 [Moles/Vol] 30.5 mmol/L Normal 21.0-31.0 [facility] Comment on above: Performed By: #### H EPACUTE, HBCAB, HBSAB #### [facility] , Creatinine [Mass/Vol] 5.57 mg/dL High 0.70-1.30 [facility] Comment on above: Performed By: #### H EPACUTE, HBCAB, HBSAB #### [facility] , Creatinine Clr Calc Pharmacy 18.11 Normal [facility] Comment on above: Performed By: #### H EPACUTE, HBCAB, HBSAB #### [facility] , GFR/1.73 sq M.predicted MDRD (S/P/Bld) [Vol rate/Area] 10.703 mL/min/{1.73_m2} Normal [facility] Comment on above: Performed By: #### H EPACUTE, HBCAB, HBSAB #### [facility] , Globulin (S) [Mass/Vol] 3.5 g/dL Normal [facility] Comment on above: Performed By: #### H EPACUTE, HBCAB, HBSAB #### [facility] , Glucose [Mass/Vol] 175 mg/dL High 70-100 [facility] Comment on above: Result Comment: [facility] Glucose Reference Range is dependent on time and content of last meal. Glucose of more than 200 mg/dL in a nonstressed, ambulatory subject supports the diagnosis of Diabetes Mellitus. ADA recommended reference range Performed By: #### H EPACUTE, HBCAB, HBSAB #### [facility] , Potassium [Moles/Vol] 3.7 mmol/L Normal 3.5-5.1 [facility] Comment on above: Performed By: #### H EPACUTE, HBCAB, HBSAB #### [facility] , Protein [Mass/Vol] 6.6 g/dL Normal 6.4-8.9 [facility] Comment on above: Performed By: #### H EPACUTE, HBCAB, HBSAB #### [facility] , Sodium [Moles/Vol] 134 mmol/L Low 136-145 [facility] Comment on above: Performed By: #### H EPACUTE, HBCAB, HBSAB #### [facility] , Urea nitrogen [Mass/Vol] 46 mg/dL High 7-25 [facility] Comment on above: Performed By: #### H EPACUTE, HBCAB, HBSAB #### [facility] , Diff and CBCon 12-29-2024 Anisocytosis Ql (Bld) Slight Normal [facility] Comment on above: Performed By: #### H EPACUTE, HBCAB, HBSAB #### [facility] , Eosinophils/100 WBC (Bld) 7 % High 1-3 [facility] Comment on above: Performed By: #### H EPACUTE, HBCAB, HBSAB #### [facility] , Erythrocyte distribution width (RBC) [Ratio] 14.7 % Normal 12.0-14.8 [facility] Comment on above: Performed By: #### H EPACUTE, HBCAB, HBSAB #### [facility] , Hematocrit (Bld) [Volume fraction] 28.5 % Low 38.8-50.0 [facility] Comment on above: Performed By: #### H EPACUTE, HBCAB, HBSAB #### [facility] , Hemoglobin (Bld) [Mass/Vol] 9.4 g/dL Low 13.0-17.0 [facility] Comment on above: Performed By: #### H EPACUTE, HBCAB, HBSAB #### [facility] , Hypochromasia Slight Normal [facility] Comment on above: Performed By: #### H EPACUTE, HBCAB, HBSAB #### [facility] , Lymphocytes/100 WBC (Bld) 15 % Low 18-42 [facility] Comment on above: Performed By: #### H EPACUTE, HBCAB, HBSAB #### [facility] , MCH (RBC) [Entitic mass] 29.1 pg Normal 27.5-35.2 [facility] Comment on above: Performed By: #### H EPACUTE, HBCAB, HBSAB #### [facility] , MCV (RBC) [Entitic vol] 88.5 fL Normal 83.5-101 [facility] Comment on above: Performed By: #### H EPACUTE, HBCAB, HBSAB #### [facility] , Mean Corpuscular HGB Conc 32.8 g/dL Normal 32.5-35.6 [facility] Comment on above: Performed By: #### H EPACUTE, HBCAB, HBSAB #### [facility] , Microcytosis Slight Normal [facility] Comment on above: Performed By: #### H EPACUTE, HBCAB, HBSAB #### [facility] , Monocytes/100 WBC (Bld) 13 % High 2-11 [facility] Comment on above: Performed By: #### H EPACUTE, HBCAB, HBSAB #### [facility] , Myelocytes 2 % High 0-0 [facility] Comment on above: Performed By: #### H EPACUTE, HBCAB, HBSAB #### [facility] , Platelet Estimate Normal Normal Normal [facility] Comment on above: Performed By: #### H EPACUTE, HBCAB, HBSAB #### [facility] , Platelet mean volume (Bld) [Entitic vol] 7.1 fL Normal 6.6-10.1 [facility] Comment on above: Performed By: #### H EPACUTE, HBCAB, HBSAB #### [facility] , Platelet Morphology Normal Normal Normal [facility] Comment on above: Result Comment: PERF ORMED BY: [facility] [address] [place] [address] PATHOLOGIST MICROCOMPUTER SUPPORT SPECIALIST CARLOS BIRMINGHAM M.D. Performed By: #### H EPACUTE, HBCAB, HBSAB #### [facility] , Platelets (Bld) [#/Vol] 240 10*3/uL Normal 150-450 [facility] Comment on above: Performed By: #### H EPACUTE, HBCAB, HBSAB #### [facility] , Polychromasia Slight Normal [facility] Comment on above: Performed By: #### H EPACUTE, HBCAB, HBSAB #### [facility] , RBC (Bld) [#/Vol] 3.22 10*6/uL Low 3.90-5.60 [facility] Comment on above: Performed By: #### H EPACUTE, HBCAB, HBSAB #### [facility] , Segmented neutrophils/100 WBC (Bld) 63 % Normal 50-70 [facility] Comment on above: Performed By: #### H EPACUTE, HBCAB, HBSAB #### [facility] , WBC (Bld) [#/Vol] 9.9 10*3/uL Normal 4.1-10.5 [facility] Comment on above: Performed By: #### H EPACUTE, HBCAB, HBSAB #### [facility] , White Blood Count 9.9 [CFU]/mL Normal 4.1-10.5 [facility] Comment on above: Performed By: #### H EPACUTE, HBCAB, HBSAB #### [facility] , Glucose Poct Glucometerson 0 12-29-2024 Glucose [Mass/Vol] 218 mg/dL Normal [facility] Comment on above: Result Comment: [facility] Glucose Reference Range is dependent on time and content of last meal. Glucose of more than 200 mg/dL in a nonstressed, ambulatory subject supports the diagnosis of Diabetes Mellitus. PERFORMED BY: [place] [address] PATHOLOGIST MICROCOMPUTER SUPPORT SPECIALIST CARLOS BIRMINGHAM M.D. Performed By: #### H EPACUTE, HBCAB, HBSAB #### [facility] , Glucose [Mass/Vol] 116 mg/dL Normal [facility] Comment on above: Result Comment: [facility] Glucose Reference Range is dependent on time and content of last meal. Glucose of more than 200 mg/dL in a nonstressed, ambulatory subject supports the diagnosis of Diabetes Mellitus. PERFORMED BY: [place] [address] PATHOLOGIST MICROCOMPUTER SUPPORT SPECIALIST CARLOS BIRMINGHAM M.D. Performed By: #### R ENAL, MG #### [address] Glucose [Mass/Vol] 172 mg/dL Normal [facility] Comment on above: Result Comment: [facility] Glucose Reference Range is dependent on time and content of last meal. Glucose of more than 200 mg/dL in a nonstressed, ambulatory subject supports the diagnosis of Diabetes Mellitus. PERFORMED BY: [place] [address] PATHOLOGIST MICROCOMPUTER SUPPORT SPECIALIST CARLOS BIRMINGHAM M.D. Performed By: #### H EPACUTE, HBCAB, HBSAB #### [facility] , Glucose [Mass/Vol] 142 mg/dL Normal [facility] Comment on above: Result Comment: [facility] Glucose Reference Range is dependent on time and content of last meal. Glucose of more than 200 mg/dL in a nonstressed, ambulatory subject supports the diagnosis of Diabetes Mellitus. PERFORMED BY: [address] [id number] PATHOLOGIST MICROCOMPUTER SUPPORT SPECIALIST CARLOS BIRMINGHAM M.D. Performed By: #### G LULS #### Point of Care testing , Magnesiumon 12-29-2024 Magnesium [Mass/Vol] 2.3 mg/dL Normal 1.9-2.7 [facility] Comment on above: Result Comment: PERF ORMED BY: [address] [place] [id number] PATHOLOGIST MICROCOMPUTER SUPPORT SPECIALIST CARLOS BIRMINGHAM M.D. Performed By: #### H EPACUTE, HBCAB, HBSAB #### [facility] , Complete Blood Count Auto Di ffon 12-28-2024 Basophils (Bld) [#/Vol] 0.1 10*3/uL Normal 0.0-0.2 [facility] Comment on above: Result Comment: PERF ORMED BY: [address] [place] [id number] PATHOLOGIST MICROCOMPUTER SUPPORT SPECIALIST CARLOS BIRMINGHAM M.D. Performed By: #### G LULS #### Point of Care testing , Basophils/100 WBC (Bld) 0.9 % Normal . [facility] Comment on above: Performed By: #### G LULS #### Point of Care testing , Eosinophils (Bld) [#/Vol] 0.5 10*3/uL High 0.0-0.45 [facility] Comment on above: Performed By: #### G LULS #### Point of Care testing , Eosinophils/100 WBC (Bld) 6.1 % Normal . [facility] Comment on above: Performed By: #### G LULS #### Point of Care testing , Erythrocyte distribution width (RBC) [Ratio] 14.7 % Normal 12.0-14.8 [facility] Comment on above: Performed By: #### G LULS #### Point of Care testing , Hematocrit (Bld) [Volume fraction] 25.9 % Low 38.8-50.0 [facility] Comment on above: Performed By: #### G LULS #### Point of Care testing , Hemoglobin (Bld) [Mass/Vol] 8.7 g/dL Low 13.0-17.0 [facility] Comment on above: Performed By: #### G LULS #### Point of Care testing , Lymphocytes (Bld) [#/Vol] 1.2 10*3/uL Normal 1.00-4.8 [facility] Comment on above: Performed By: #### G LULS #### Point of Care testing , Lymphocytes/100 WBC (Bld) 13.2 % Normal . [facility] Comment on above: Performed By: #### G LULS #### Point of Care testing , MCH (RBC) [Entitic mass] 29.5 pg Normal 27.5-35.2 [facility] Comment on above: Performed By: #### G LULS #### Point of Care testing , MCV (RBC) [Entitic vol] 87.7 fL Normal 83.5-101 [facility] Comment on above: Performed By: #### G LULS #### Point of Care testing , Mean Corpuscular HGB Conc 33.6 g/dL Normal 32.5-35.6 [facility] Comment on above: Performed By: #### G LULS #### Point of Care testing , Monocytes (Bld) [#/Vol] 1.0 10*3/uL High 0.0-0.8 [facility] Comment on above: Performed By: #### G LULS #### Point of Care testing , Monocytes/100 WBC (Bld) 11.6 % Normal . [facility] Comment on above: Performed By: #### G LULS #### Point of Care testing , Neutrophils (Bld) [#/Vol] 6.0 10*3/uL Normal 1.8-7.7 [facility] Comment on above: Performed By: #### G LULS #### Point of Care testing , Neutrophils/100 WBC (Bld) 68.2 % Normal . [facility] Comment on above: Performed By: #### G LULS #### Point of Care testing , NRBC% 0.0 /100{WBC} Normal 0-0.5 [facility] Comment on above: Performed By: #### G LULS #### Point of Care testing , Platelet mean volume (Bld) [Entitic vol] 8.2 fL Normal 6.6-10.1 [facility] Comment on above: Performed By: #### G LULS #### Point of Care testing , Platelets (Bld) [#/Vol] 150 10*3/uL Abnormal 150-450 [facility] Comment on above: Performed By: #### G LULS #### Point of Care testing , RBC (Bld) [#/Vol] 2.96 10*6/uL Low 3.90-5.60 [facility] Comment on above: Performed By: #### G LULS #### Point of Care testing , WBC (Bld) [#/Vol] 8.7 10*3/uL Normal 4.1-10.5 [facility] Comment on above: Performed By: #### G LULS #### Point of Care testing , White Blood Count 8.7 [CFU]/mL Normal 4.1-10.5 [facility] Comment on above: Performed By: #### G LULS #### Point of Care testing , Comprehensive Metabolic Pane babatunde 12-28-2024 Albumin [Mass/Vol] 2.8 g/dL Low 3.5-5.7 [facility] Comment on above: Performed By: #### G LULS #### Point of Care testing , Albumin/Globulin [Mass ratio] 0.9 {ratio} Normal [facility] Comment on above: Performed By: #### G ABDONLS #### Point of Care testing , ALP [Catalytic activity/Vol] 62 U/L Normal 34-104 [facility] Comment on above: Performed By: #### G LULS #### Point of Care testing , ALT [Catalytic activity/Vol] U/L Low 7-52 [facility] Comment on above: Performed By: #### G LULS #### Point of Care testing , Anion gap [Moles/Vol] 17.2 mmol/L High 6.0-15.0 [facility] Comment on above: Performed By: #### G LULS #### Point of Care testing , AST [Catalytic activity/Vol] 20 U/L Normal 13-39 [facility] Comment on above: Performed By: #### G LULS #### Point of Care testing , Bilirubin [Mass/Vol] 0.5 mg/dL Normal 0.3-1.0 [facility] Comment on above: Performed By: #### G ABDONLS #### Point of Care testing , Calcium [Mass/Vol] 8.4 mg/dL Low 8.6-10.3 [facility] Comment on above: Performed By: #### G ABDONLS #### Point of Care testing , Chloride [Moles/Vol] 96 mmol/L Low 98-107 [facility] Comment on above: Performed By: #### G LULS #### Point of Care testing , CO2 [Moles/Vol] 23.9 mmol/L Normal 21.0-31.0 [facility] Comment on above: Performed By: #### G LULS #### Point of Care testing , Creatinine [Mass/Vol] 7.26 mg/dL High 0.70-1.30 [facility] Comment on above: Performed By: #### G LULS #### Point of Care testing , Creatinine Clr Calc Pharmacy 15.82 Normal [facility] Comment on above: Performed By: #### G LULS #### Point of Care testing , GFR/1.73 sq M.predicted MDRD (S/P/Bld) [Vol rate/Area] 7.787 mL/min/{1.73_m2} Normal [facility] Comment on above: Performed By: #### G ABDONLS #### Point of Care testing , Globulin (S) [Mass/Vol] 3.2 g/dL Normal [facility] Comment on above: Performed By: #### G LULS #### Point of Care testing , Glucose [Mass/Vol] 220 mg/dL High 70-100 [facility] Comment on above: Result Comment: [facility] Glucose Reference Range is dependent on time and content of last meal. Glucose of more than 200 mg/dL in a nonstressed, ambulatory subject supports the diagnosis of Diabetes Mellitus. ADA recommended reference range Performed By: #### G LULS #### Point of Care testing , Potassium [Moles/Vol] 4.1 mmol/L Normal 3.5-5.1 [facility] Comment on above: Result Comment: Hemo lysis is present at a level that could interfere with the result. Contact lab if redraw is required Performed By: #### G ABDONLS #### Point of Care testing , Protein [Mass/Vol] 6.0 g/dL Low 6.4-8.9 [facility] Comment on above: Performed By: #### G ABDONLS #### Point of Care testing , Sodium [Moles/Vol] 133 mmol/L Low 136-145 [facility] Comment on above: Performed By: #### G ABDONLS #### Point of Care testing , Urea nitrogen [Mass/Vol] 73 mg/dL High 7-25 [facility] Comment on above: Performed By: #### G LULS #### Point of Care testing , Glucose Poct Glucometerson 0 12-28-2024 Glucose [Mass/Vol] 224 mg/dL Normal [facility] Comment on above: Result Comment: [facility] Glucose Reference Range is dependent on time and content of last meal. Glucose of more than 200 mg/dL in a nonstressed, ambulatory subject supports the diagnosis of Diabetes Mellitus. PERFORMED BY: [place] [address] [place] [address] PATHOLOGIST MICROCOMPUTER SUPPORT SPECIALIST CARLOS BIRMINGHAM M.D. Performed By: #### H EPACUTE, HBCAB, HBSAB #### [facility] , Glucose [Mass/Vol] 204 mg/dL Normal [facility] Comment on above: Result Comment: [facility] Glucose Reference Range is dependent on time and content of last meal. Glucose of more than 200 mg/dL in a nonstressed, ambulatory subject supports the diagnosis of Diabetes Mellitus. PERFORMED BY: [address] [place] [address] PATHOLOGIST MICROCOMPUTER SUPPORT SPECIALIST CARLOS BIRMINGHAM M.D. Performed By: #### G LULS #### Point of Care testing , Glucose [Mass/Vol] 280 mg/dL Normal [facility] Comment on above: Result Comment: [facility] Glucose Reference Range is dependent on time and content of last meal. Glucose of more than 200 mg/dL in a nonstressed, ambulatory subject supports the diagnosis of Diabetes Mellitus. PERFORMED BY: [place] [address] PATHOLOGIST MICROCOMPUTER SUPPORT SPECIALIST CARLOS BIRMINGHAM M.D. Performed By: #### H EPACUTE, HBCAB, HBSAB #### [facility] , Magnesiumon 12-28-2024 Magnesium [Mass/Vol] 2.7 mg/dL Normal 1.9-2.7 [facility] Comment on above: Result Comment: PERF ORMED BY: [address] [place] [id number] PATHOLOGIST [employer]CROCOMPUTER SUPPORT SPECIALIST CARLOS BIRMINGHAM M.D. Performed By: #### G LULS #### Point of Care testing , Glucose Poct Glucometerson 0 12-27-2024 Commemt1 Glu2: Cleaned Meter Normal [facility] Comment on above: Result Comment: PERF ORMED BY: [address] [place] [id number] PATHOLOGIST MICROCOMPUTER SUPPORT SPECIALIST CARLOS BIRMINGHAM M.D. Performed By: #### H EPACUTE, HBCAB, HBSAB #### [facility] , Glucose [Mass/Vol] 250 mg/dL Normal [facility] Comment on above: Result Comment: [place] Glucose Reference Range is dependent on time and content of last meal. Glucose of more than 200 mg/dL in a nonstressed, ambulatory subject supports the diagnosis of Diabetes Mellitus. Performed By: #### H EPACUTE, HBCAB, HBSAB #### [facility] , Glucose [Mass/Vol] 261 mg/dL Normal [facility] Comment on above: Result Comment: [place] Glucose Reference Range is dependent on time and content of last meal. Glucose of more than 200 mg/dL in a nonstressed, ambulatory subject supports the diagnosis of Diabetes Mellitus. PERFORMED BY: [place] [address] PATHOLOGIST MICROCOMPUTER SUPPORT SPECIALIST CARLOS BIRMINGHAM M.D. Performed By: #### H EPACUTE, HBCAB, HBSAB #### [facility] , Glucose [Mass/Vol] 185 mg/dL Normal [facility] Comment on above: Result Comment: [facility] Glucose Reference Range is dependent on time and content of last meal. Glucose of more than 200 mg/dL in a nonstressed, ambulatory subject supports the diagnosis of Diabetes Mellitus. PERFORMED BY: [address] [address] PATHOLOGIST MICROCOMPUTER SUPPORT SPECIALIST CARLOS BIRMINGHAM M.D. Performed By: #### H EPACUTE, HBCAB, HBSAB #### [facility] , Glucose [Mass/Vol] 114 mg/dL Normal [facility] Comment on above: Result Comment: [place] Glucose Reference Range is dependent on time and content of last meal. Glucose of more than 200 mg/dL in a nonstressed, ambulatory subject supports the diagnosis of Diabetes Mellitus. PERFORMED BY: [place] [id number] PATHOLOGIST MICROCOMPUTER SUPPORT SPECIALIST CARLOS BIRMINGHAM M.D. Performed By: #### H EPACUTE, HBCAB, HBSAB #### [facility] , Hemogram CBC Without Diffon 12-27-2024 Erythrocyte distribution width (RBC) [Ratio] 14.7 % Normal 12.0-14.8 [facility] Comment on above: Performed By: #### G LULS #### Point of Care testing , Hematocrit (Bld) [Volume fraction] 29.1 % Low 38.8-50.0 [facility] Comment on above: Performed By: #### G LULS #### Point of Care testing , Hemoglobin (Bld) [Mass/Vol] 9.7 g/dL Low 13.0-17.0 [facility] Comment on above: Performed By: #### G LULS #### Point of Care testing , MCH (RBC) [Entitic mass] 28.9 pg Normal 27.5-35.2 [facility] Comment on above: Performed By: #### G LULS #### Point of Care testing , MCV (RBC) [Entitic vol] 87.0 fL Normal 83.5-101 [facility] Comment on above: Performed By: #### G LULS #### Point of Care testing , Mean Corpuscular HGB Conc 33.3 g/dL Normal 32.5-35.6 [facility] Comment on above: Performed By: #### G LULS #### Point of Care testing , Platelet mean volume (Bld) [Entitic vol] 7.1 fL Normal 6.6-10.1 [facility] Comment on above: Result Comment: PERF ORMED BY: [address] [place] [address] PATHOLOGIST MICROCOMPUTER SUPPORT SPECIALIST CARLOS BIRMINGHAM M.D. Performed By: #### G LULS #### Point of Care testing , Platelets (Bld) [#/Vol] 202 10*3/uL Normal 150-450 [facility] Comment on above: Performed By: #### G LULS #### Point of Care testing , RBC (Bld) [#/Vol] 3.34 10*6/uL Low 3.90-5.60 [facility] Comment on above: Performed By: #### G LULS #### Point of Care testing , White Blood Count 10.0 [CFU]/mL Normal 4.1-10.5 [facility] Comment on above: Performed By: #### G LULS #### Point of Care testing , Renal Function Panelon 12-27 Albumin [Mass/Vol] 3.1 g/dL Low 3.5-5.7 [facility] Comment on above: Performed By: #### G LULS #### Point of Care testing , Anion gap [Moles/Vol] 16.0 mmol/L High 6.0-15.0 [facility] Comment on above: Performed By: #### G LULS #### Point of Care testing , Calcium [Mass/Vol] 8.8 mg/dL Normal 8.6-10.3 [facility] Comment on above: Performed By: #### G LULS #### Point of Care testing , Chloride [Moles/Vol] 95 mmol/L Low 98-107 [facility] Comment on above: Performed By: #### G LULS #### Point of Care testing , CO2 [Moles/Vol] 28.1 mmol/L Normal 21.0-31.0 [facility] Comment on above: Performed By: #### G LULS #### Point of Care testing , Creatinine [Mass/Vol] 6.35 mg/dL High 0.70-1.30 [facility] Comment on above: Performed By: #### G LULS #### Point of Care testing , Creatinine Clr Calc Pharmacy 18.04 Normal [facility] Comment on above: Result Comment: PERF ORMED BY: [place] [address] [place] [address] PATHOLOGIST MICROCOMPUTER SUPPORT SPECIALIST CARLOS BIRMINGHAM M.D. Performed By: #### G LULS #### Point of Care testing , GFR/1.73 sq M.predicted MDRD (S/P/Bld) [Vol rate/Area] 9.145 mL/min/{1.73_m2} Normal [facility] Comment on above: Performed By: #### G LULS #### Point of Care testing , Glucose [Mass/Vol] 126 mg/dL High 70-100 [facility] Comment on above: Result Comment: [facility] Glucose Reference Range is dependent on time and content of last meal. Glucose of more than 200 mg/dL in a nonstressed, ambulatory subject supports the diagnosis of Diabetes Mellitus. ADA recommended reference range Performed By: #### G LULS #### Point of Care testing , Phosphate [Mass/Vol] 5.4 mg/dL High 2.5-4.5 [facility] Comment on above: Performed By: #### G LULS #### Point of Care testing , Potassium [Moles/Vol] 4.1 mmol/L Normal 3.5-5.1 [facility] Comment on above: Performed By: #### G LULS #### Point of Care testing , Sodium [Moles/Vol] 135 mmol/L Low 136-145 [facility] Comment on above: Performed By: #### G LULS #### Point of Care testing , Urea nitrogen [Mass/Vol] 65 mg/dL High 7-25 [facility] Comment on above: Performed By: #### G LULS #### Point of Care testing , Complete Blood Count Auto Di ffon 12-26-2024 Basophils (Bld) [#/Vol] 0.0 10*3/uL Normal 0.0-0.2 [facility] Comment on above: Result Comment: PERF ORMED BY: [place] [address] PATHOLOGIST MICROCOMPUTER SUPPORT SPECIALIST CARLOS BIRMINGHAM M.D. Performed By: #### R ENAL #### [facility] [address] [place] [address] [place] Basophils/100 WBC (Bld) 0.4 % Normal . [facility] Comment on above: Performed By: #### R ENAL #### [place] [address] [place] Eosinophils (Bld) [#/Vol] 0.3 10*3/uL Normal 0.0-0.45 [facility] Comment on above: Performed By: #### R ENAL #### [place] [address] [place] Eosinophils/100 WBC (Bld) 2.8 % Normal . [facility] Comment on above: Performed By: #### R ENAL #### [address] Erythrocyte distribution width (RBC) [Ratio] 15.3 % High 12.0-14.8 [facility] Comment on above: Performed By: #### R ENAL #### [address] Hematocrit (Bld) [Volume fraction] 30.7 % Low 38.8-50.0 [facility] Comment on above: Performed By: #### R ENAL #### [address] Hemoglobin (Bld) [Mass/Vol] 10.1 g/dL Low 13.0-17.0 [facility] Comment on above: Performed By: #### R ENAL #### [address] Lymphocytes (Bld) [#/Vol] 1.3 10*3/uL Normal 1.00-4.8 [facility] Comment on above: Performed By: #### R ENAL #### [address] Lymphocytes/100 WBC (Bld) 12.8 % Normal . [facility] Comment on above: Performed By: #### R ENAL #### [address] MCH (RBC) [Entitic mass] 28.9 pg Normal 27.5-35.2 [facility] Comment on above: Performed By: #### R ENAL #### [address] MCV (RBC) [Entitic vol] 87.7 fL Normal 83.5-101 [facility] Comment on above: Performed By: #### R ENAL #### [address] Mean Corpuscular HGB Conc 33.0 g/dL Normal 32.5-35.6 [facility] Comment on above: Performed By: #### R ENAL #### [place] [address] [place] Monocytes (Bld) [#/Vol] 0.9 10*3/uL High 0.0-0.8 [facility] Comment on above: Performed By: #### R ENAL #### [address] Monocytes/100 WBC (Bld) 9.1 % Normal . [facility] Comment on above: Performed By: #### R ENAL #### [address] Neutrophils (Bld) [#/Vol] 7.4 10*3/uL Normal 1.8-7.7 [facility] Comment on above: Performed By: #### R ENAL #### [address] Neutrophils/100 WBC (Bld) 74.9 % Normal . [facility] Comment on above: Performed By: #### R ENAL #### [address] NRBC% 0.1 /100{WBC} Normal 0-0.5 [facility] Comment on above: Performed By: #### R ENAL #### [address] Platelet mean volume (Bld) [Entitic vol] 7.4 fL Normal 6.6-10.1 [facility] Comment on above: Performed By: #### R ENAL #### [place] [address] [place] Platelets (Bld) [#/Vol] 176 10*3/uL Normal 150-450 [facility] Comment on above: Performed By: #### R ENAL #### [address] RBC (Bld) [#/Vol] 3.50 10*6/uL Low 3.90-5.60 [facility] Comment on above: Performed By: #### R ENAL #### [address] [place] [address] [place] WBC (Bld) [#/Vol] 10.0 10*3/uL Normal 4.1-10.5 [facility] Comment on above: Performed By: #### R ENAL #### [facility] [address] White Blood Count 10.0 [CFU]/mL Normal 4.1-10.5 [facility] Comment on above: Performed By: #### R ENAL #### [address] Glucose Poct Glucometerson 0 12-26-2024 Glucose [Mass/Vol] 175 mg/dL Normal [facility] Comment on above: Result Comment: [facility] Glucose Reference Range is dependent on time and content of last meal. Glucose of more than 200 mg/dL in a nonstressed, ambulatory subject supports the diagnosis of Diabetes Mellitus. PERFORMED BY: [place] [address] PATHOLOGIST MICROCOMPUTER SUPPORT SPECIALIST CARLOS BIRMINGHAM M.D. Performed By: #### G LULS #### Point of Care testing , Glucose [Mass/Vol] 181 mg/dL Normal [facility] Comment on above: Result Comment: [facility] Glucose Reference Range is dependent on time and content of last meal. Glucose of more than 200 mg/dL in a nonstressed, ambulatory subject supports the diagnosis of Diabetes Mellitus. PERFORMED BY: [place] [address] PATHOLOGIST MICROCOMPUTER SUPPORT SPECIALIST CARLOS BIRMINGHAM M.D. Performed By: #### H EPACUTE, HBCAB, HBSAB #### [facility] , Glucose [Mass/Vol] 210 mg/dL Normal [facility] Comment on above: Result Comment: [facility] Glucose Reference Range is dependent on time and content of last meal. Glucose of more than 200 mg/dL in a nonstressed, ambulatory subject supports the diagnosis of Diabetes Mellitus. PERFORMED BY: [place] [address] PATHOLOGIST MICROCOMPUTER SUPPORT SPECIALIST CARLOS BIRMINGHAM M.D. Performed By: #### R ENAL #### [facility] [address] Glucose [Mass/Vol] 194 mg/dL Normal [facility] Comment on above: Result Comment: [facility] Glucose Reference Range is dependent on time and content of last meal. Glucose of more than 200 mg/dL in a nonstressed, ambulatory subject supports the diagnosis of Diabetes Mellitus. PERFORMED BY: [place] [address] PATHOLOGIST MICROCOMPUTER SUPPORT SPECIALIST CARLOS BIRMINGHAM M.D. Performed By: #### R ENAL, MG #### [facility] [address] Renal Function Panelon 12-26 Albumin [Mass/Vol] 3.1 g/dL Low 3.5-5.7 [facility] Comment on above: Performed By: #### H EPACUTE, HBCAB, HBSAB #### [facility] , Anion gap [Moles/Vol] 14.3 mmol/L Normal 6.0-15.0 [facility] Comment on above: Performed By: #### H EPACUTE, HBCAB, HBSAB #### [facility] , Calcium [Mass/Vol] 8.4 mg/dL Low 8.6-10.3 [facility] Comment on above: Performed By: #### H EPACUTE, HBCAB, HBSAB #### [facility] , Chloride [Moles/Vol] 95 mmol/L Low 98-107 [facility] Comment on above: Performed By: #### H EPACUTE, HBCAB, HBSAB #### [facility] , CO2 [Moles/Vol] 28.8 mmol/L Normal 21.0-31.0 [facility] Comment on above: Performed By: #### H EPACUTE, HBCAB, HBSAB #### [facility] , Creatinine [Mass/Vol] 5.07 mg/dL High 0.70-1.30 [facility] Comment on above: Performed By: #### H EPACUTE, HBCAB, HBSAB #### [facility] , Creatinine Clr Calc Pharmacy 22.49 Normal [facility] Comment on above: Result Comment: PERF ORMED BY: [facility] [place] [address] PATHOLOGIST MICROCOMPUTER SUPPORT SPECIALIST CARLOS BIRMINGHAM M.D. Performed By: #### H EPACUTE, HBCAB, HBSAB #### [facility] , GFR/1.73 sq M.predicted MDRD (S/P/Bld) [Vol rate/Area] 11.982 mL/min/{1.73_m2} Normal [facility] Comment on above: Performed By: #### H EPACUTE, HBCAB, HBSAB #### [facility] , Glucose [Mass/Vol] 199 mg/dL High 70-100 [facility] Comment on above: Result Comment: [facility] Glucose Reference Range is dependent on time and content of last meal. Glucose of more than 200 mg/dL in a nonstressed, ambulatory subject supports the diagnosis of Diabetes Mellitus. ADA recommended reference range Performed By: #### H EPACUTE, HBCAB, HBSAB #### [facility] , Phosphate [Mass/Vol] 5.7 mg/dL High 2.5-4.5 [facility] Comment on above: Performed By: #### H EPACUTE, HBCAB, HBSAB #### [facility] , Potassium [Moles/Vol] 4.1 mmol/L Normal 3.5-5.1 [facility] Comment on above: Performed By: #### H EPACUTE, HBCAB, HBSAB #### [facility] , Sodium [Moles/Vol] 134 mmol/L Low 136-145 [facility] Comment on above: Performed By: #### H EPACUTE, HBCAB, HBSAB #### [facility] , Urea nitrogen [Mass/Vol] 52 mg/dL High 7-25 [facility] Comment on above: Performed By: #### H EPACUTE, HBCAB, HBSAB #### [facility] , XR hip RT min 2V(w/wo pelvis )*on 12-26-2024 XR hip RT min 2V(w/wo pelvis)* [facility] Main [address] [address] XRay Report Signed Patient: Rashard Lyman MR#: [id number] : 1960 Acct:[id number] Age/Sex: 64 / M ADM Date: 12/23/24 Loc: Room: [address] [place] [address] Type: ADM IN Attending Dr: Dinesh Cervantes [...] Mckinney M.D. 12/26/2024 5:01 PM Dictation Location: [place] [address] Transcribed By: [facility] 12/26/241700 Dictated By: Hector Mckinney II, MD 12/26/241699 Signed By: 12/26/241700 Normal [facility] XR wrist RT 2Von 12-26-2024 XR wrist RT 2V [facility] Main [address] [address] XRay Report Signed Patient: Rashard Lyman MR#: [id number] : 1960 Acct:[id number] Age/Sex: 64 / M ADM Date: 12/23/24 Loc: 4 Room: [address] [place] [address] Type: ADM IN Attending Dr: Dinesh Cervantes [...] Mckinney M.D. 12/26/2024 5:00 PM Dictation Location: [place] [address] Transcribed By: [facility] 12/26/24 1700 Dictated By: Hector Mckinney II, MD 12/26/24 1659 Signed By: 12/26/24 1700 Normal [facility] Complete Blood Count Auto Di ffon 12-25-2024 Basophils (Bld) [#/Vol] 0.1 10*3/uL Normal 0.0-0.2 [facility] Comment on above: Result Comment: PERF ORMED BY: [place] [address] PATHOLOGIST MICROCOMPUTER SUPPORT SPECIALIST CARLOS BIRMINGHAM M.D. Performed By: #### R ENJOHN MG #### [place] [address] [place] Basophils/100 WBC (Bld) 0.4 % Normal . [facility] Comment on above: Performed By: #### R ENJOHN, MG #### [address] Eosinophils (Bld) [#/Vol] 0.0 10*3/uL Normal 0.0-0.45 [facility] Comment on above: Performed By: #### R ENAL, MG #### [address] Eosinophils/100 WBC (Bld) 0.0 % Normal . [facility] Comment on above: Performed By: #### R ENAL, MG #### [address] Erythrocyte distribution width (RBC) [Ratio] 14.8 % Normal 12.0-14.8 [facility] Comment on above: Performed By: #### R ENAL, MG #### [address] Hematocrit (Bld) [Volume fraction] 31.3 % Low 38.8-50.0 [facility] Comment on above: Performed By: #### R ENAL, MG #### [address] Hemoglobin (Bld) [Mass/Vol] 10.3 g/dL Low 13.0-17.0 [facility] Comment on above: Performed By: #### R ENAL, MG #### [address] Lymphocytes (Bld) [#/Vol] 0.9 10*3/uL Low 1.00-4.8 [facility] Comment on above: Performed By: #### R ENAL, MG #### [place] [address] [place] Lymphocytes/100 WBC (Bld) 6.1 % Normal . [facility] Comment on above: Performed By: #### R ENAL, MG #### [address] MCH (RBC) [Entitic mass] 28.9 pg Normal 27.5-35.2 [facility] Comment on above: Performed By: #### R ENAL, MG #### [address] MCV (RBC) [Entitic vol] 87.5 fL Normal 83.5-101 [facility] Comment on above: Performed By: #### R ENAL, MG #### [facility] [address] Mean Corpuscular HGB Conc 33.0 g/dL Normal 32.5-35.6 [facility] Comment on above: Performed By: #### R ENAL, MG #### [facility] [address] Monocytes (Bld) [#/Vol] 1.3 10*3/uL High 0.0-0.8 [facility] Comment on above: Performed By: #### R ENAL, MG #### [address] Monocytes/100 WBC (Bld) 9.0 % Normal . [facility] Comment on above: Performed By: #### R ENAL, MG #### [address] Neutrophils (Bld) [#/Vol] 12.6 10*3/uL High 1.8-7.7 [facility] Comment on above: Performed By: #### R ENAL, MG #### [address] Neutrophils/100 WBC (Bld) 84.5 % Normal . [facility] Comment on above: Performed By: #### R ENAL, MG #### [address] NRBC% 0.1 /100{WBC} Normal 0-0.5 [facility] Comment on above: Performed By: #### R ENAL, MG #### [address] Platelet mean volume (Bld) [Entitic vol] 7.8 fL Normal 6.6-10.1 [facility] Comment on above: Performed By: #### R ENAL, MG #### [facility] [address] [place] [address] Platelets (Bld) [#/Vol] 170 10*3/uL Normal 150-450 [facility] Comment on above: Performed By: #### R ENAL, MG #### [facility] [address] RBC (Bld) [#/Vol] 3.58 10*6/uL Low 3.90-5.60 [facility] Comment on above: Performed By: #### R ENAL, MG #### [address] WBC (Bld) [#/Vol] 15.0 10*3/uL High 4.1-10.5 [facility] Comment on above: Performed By: #### R ENAL, MG #### [address] White Blood Count 15.0 [CFU]/mL High 4.1-10.5 [facility] Comment on above: Performed By: #### R ENAL, MG #### [address] Glucose Poct Glucometerson 0 12-25-2024 Glucose [Mass/Vol] 298 mg/dL Normal [facility] Comment on above: Result Comment: [facility] Glucose Reference Range is dependent on time and content of last meal. Glucose of more than 200 mg/dL in a nonstressed, ambulatory subject supports the diagnosis of Diabetes Mellitus. PERFORMED BY: [place] [address] PATHOLOGIST MICROCOMPUTER SUPPORT SPECIALIST CARLOS BIRMINGHAM M.D. Performed By: #### H EPACUTE, HBCAB, HBSAB #### [facility] , Glucose [Mass/Vol] 299 mg/dL Normal [facility] Comment on above: Result Comment: [facility] Glucose Reference Range is dependent on time and content of last meal. Glucose of more than 200 mg/dL in a nonstressed, ambulatory subject supports the diagnosis of Diabetes Mellitus. PERFORMED BY: [place] [address] PATHOLOGIST MICROCOMPUTER SUPPORT SPECIALIST CARLOS BIRMINGHAM M.D. Performed By: #### H EPACUTE, HBCAB, HBSAB #### [facility] , Commemt1 Glu2: Cleaned Meter Normal [facility] Comment on above: Result Comment: PERF ORMED BY: [place] [address] PATHOLOGIST MICROCOMPUTER SUPPORT SPECIALIST CARLOS BIRMINGHAM M.D. Performed By: #### H EPACUTE, HBCAB, HBSAB #### [facility] , Glucose [Mass/Vol] 143 mg/dL Normal [facility] Comment on above: Result Comment: [place] Glucose Reference Range is dependent on time and content of last meal. Glucose of more than 200 mg/dL in a nonstressed, ambulatory subject supports the diagnosis of Diabetes Mellitus. Performed By: #### H EPACUTE, HBCAB, HBSAB #### [facility] , Glucose [Mass/Vol] 218 mg/dL Normal [facility] Comment on above: Result Comment: [facility] Glucose Reference Range is dependent on time and content of last meal. Glucose of more than 200 mg/dL in a nonstressed, ambulatory subject supports the diagnosis of Diabetes Mellitus. PERFORMED BY: [place] [address] PATHOLOGIST MICROCOMPUTER SUPPORT SPECIALIST CARLOS BIRMINGHAM M.D. Performed By: #### G LULS #### Point of Care testing , Magnesiumon 12-25-2024 Magnesium [Mass/Vol] 2.5 mg/dL Normal 1.9-2.7 [facility] Comment on above: Result Comment: PERF ORMED BY: [place] [address] PATHOLOGIST MICROCOMPUTER SUPPORT SPECIALIST CARLOS BIRMINGHAM M.D. Performed By: #### R ENAL, MG #### [facility] [address] [place] [address] Renal Function Panelon 12-25 Albumin [Mass/Vol] 3.1 g/dL Low 3.5-5.7 [facility] Comment on above: Performed By: #### R ENAL, MG #### [facility] [address] [place] [address] Anion gap [Moles/Vol] 19.1 mmol/L High 6.0-15.0 [facility] Comment on above: Performed By: #### R ENAL, MG #### [address] Calcium [Mass/Vol] 8.3 mg/dL Low 8.6-10.3 [facility] Comment on above: Performed By: #### R ENAL, MG #### [address] Chloride [Moles/Vol] 93 mmol/L Low 98-107 [facility] Comment on above: Performed By: #### R ENAL, MG #### [address] CO2 [Moles/Vol] 24.8 mmol/L Normal 21.0-31.0 [facility] Comment on above: Performed By: #### R ENAL, MG #### [address] Creatinine [Mass/Vol] 5.68 mg/dL High 0.70-1.30 [facility] Comment on above: Performed By: #### R ENAL, MG #### [address] Creatinine Clr Calc Pharmacy 20.03 Normal [facility] Comment on above: Performed By: #### R ENAL, MG #### [place] [address] [place] GFR/1.73 sq M.predicted MDRD (S/P/Bld) [Vol rate/Area] 10.455 mL/min/{1.73_m2} Normal [facility] Comment on above: Performed By: #### R ENAL, MG #### [address] Glucose [Mass/Vol] 228 mg/dL High 70-100 [facility] Comment on above: Result Comment: [facility] Glucose Reference Range is dependent on time and content of last meal. Glucose of more than 200 mg/dL in a nonstressed, ambulatory subject supports the diagnosis of Diabetes Mellitus. ADA recommended reference range Performed By: #### R ENAL, MG #### [facility] [address] Phosphate [Mass/Vol] 7.2 mg/dL High 2.5-4.5 [facility] Comment on above: Performed By: #### R ENAL, MG #### [facility] [address] Potassium [Moles/Vol] 4.9 mmol/L Normal 3.5-5.1 [facility] Comment on above: Performed By: #### R ENAL, MG #### [facility] [address] Sodium [Moles/Vol] 132 mmol/L Low 136-145 [facility] Comment on above: Performed By: #### R ENAL, MG #### [facility] [address] [place] [address] [place] Urea nitrogen [Mass/Vol] 65 mg/dL High 7-25 [facility] Comment on above: Performed By: #### R ENAL, MG #### [facility] [address] Basic Metabolic Panelon 082 Anion gap [Moles/Vol] 17.6 mmol/L High 6.0-15.0 [facility] Comment on above: Performed By: #### R ENAL, MG #### [facility] [address] [place] [address] [place] Calcium [Mass/Vol] 8.4 mg/dL Low 8.6-10.3 [facility] Comment on above: Performed By: #### R ENAL, MG #### [facility] [address] [place] [address] [place] CO2 [Moles/Vol] 21.2 mmol/L Normal 21.0-31.0 [facility] Comment on above: Performed By: #### R ENAL, MG #### [facility] [address] [place] [id number] [place] Creatinine [Mass/Vol] 6.64 mg/dL High 0.70-1.30 [facility] Comment on above: Performed By: #### R ENAL, MG #### [address] Creatinine Clr Calc Pharmacy 17.16 Normal [facility] Comment on above: Result Comment: PERF ORMED BY: [place] [address] PATHOLOGIST MICROCOMPUTER SUPPORT SPECIALIST CARLOS BIRMINGHAM M.D. Performed By: #### R ENAL, MG #### [place] [address] [place] GFR/1.73 sq M.predicted MDRD (S/P/Bld) [Vol rate/Area] 8.667 mL/min/{1.73_m2} Normal [facility] Comment on above: Performed By: #### R ENAL, MG #### [address] Glucose [Mass/Vol] 149 mg/dL High 70-100 [facility] Comment on above: Result Comment: [facility] Glucose Reference Range is dependent on time and content of last meal. Glucose of more than 200 mg/dL in a nonstressed, ambulatory subject supports the diagnosis of Diabetes Mellitus. ADA recommended reference range Performed By: #### R ENAL, MG #### [address] Potassium [Moles/Vol] 4.8 mmol/L Normal 3.5-5.1 [facility] Comment on above: Performed By: #### R ENAL, MG #### [place] [address] [place] Sodium [Moles/Vol] 133 mmol/L Low 136-145 [facility] Comment on above: Performed By: #### R ENAL, MG #### [address] Urea nitrogen [Mass/Vol] 73 mg/dL High 7-25 [facility] Comment on above: Performed By: #### R ENAL, MG #### [address] Complete Blood Count Auto Di ffon 12-24-2024 Basophils (Bld) [#/Vol] 0.1 10*3/uL Normal 0.0-0.2 [facility] Comment on above: Result Comment: PERF ORMED BY: [place] [address] PATHOLOGIST MICROCOMPUTER SUPPORT SPECIALIST CARLOS BIRMINGHAM M.D. Performed By: #### R YUMIKO MG #### [address] Basophils/100 WBC (Bld) 0.6 % Normal . [facility] Comment on above: Performed By: #### Treva CALDERON MG #### [address] Eosinophils (Bld) [#/Vol] 0.5 10*3/uL High 0.0-0.45 [facility] Comment on above: Performed By: #### R YUMIKO MG #### [address] Eosinophils/100 WBC (Bld) 3.6 % Normal . [facility] Comment on above: Performed By: #### Treva CALDERON MG #### [address] Erythrocyte distribution width (RBC) [Ratio] 14.9 % High 12.0-14.8 [facility] Comment on above: Performed By: #### R YUMIKO MG #### [address] Hematocrit (Bld) [Volume fraction] 33.2 % Low 38.8-50.0 [facility] Comment on above: Performed By: #### R YUMIKO MG #### [address] Hemoglobin (Bld) [Mass/Vol] 11.1 g/dL Low 13.0-17.0 [facility] Comment on above: Performed By: #### R YUMIKO MG #### [address] Lymphocytes (Bld) [#/Vol] 1.6 10*3/uL Normal 1.00-4.8 [facility] Comment on above: Performed By: #### R YUMIKO, MG #### [address] Lymphocytes/100 WBC (Bld) 12.8 % Normal . [facility] Comment on above: Performed By: #### R YUMIKO, MG #### [address] MCH (RBC) [Entitic mass] 28.9 pg Normal 27.5-35.2 [facility] Comment on above: Performed By: #### R YUMIKO MG #### [address] MCV (RBC) [Entitic vol] 86.6 fL Normal 83.5-101 [facility] Comment on above: Performed By: #### R YUMIKO, MG #### [address] Mean Corpuscular HGB Conc 33.4 g/dL Normal 32.5-35.6 [facility] Comment on above: Performed By: #### R YUMIKO MG #### [address] Monocytes (Bld) [#/Vol] 1.1 10*3/uL High 0.0-0.8 [facility] Comment on above: Performed By: #### R ENJOHN, MG #### [address] Monocytes/100 WBC (Bld) 9.0 % Normal . [facility] Comment on above: Performed By: #### R YUMIKO, MG #### [address] Neutrophils (Bld) [#/Vol] 9.3 10*3/uL High 1.8-7.7 [facility] Comment on above: Performed By: #### R ENJOHN, MG #### [address] Neutrophils/100 WBC (Bld) 74.0 % Normal . [facility] Comment on above: Performed By: #### Treva CALDERON MG #### [address] NRBC% 0.1 /100{WBC} Normal 0-0.5 [facility] Comment on above: Performed By: #### Treva CALDERON MG #### [address] Platelet mean volume (Bld) [Entitic vol] 7.2 fL Normal 6.6-10.1 [facility] Comment on above: Performed By: #### Treva CALDERON MG #### [address] Platelets (Bld) [#/Vol] 160 10*3/uL Abnormal 150-450 [facility] Comment on above: Performed By: #### Treva CALDERON MG #### [address] RBC (Bld) [#/Vol] 3.83 10*6/uL Low 3.90-5.60 [facility] Comment on above: Performed By: #### Treva CALDERON MG #### [address] WBC (Bld) [#/Vol] 12.5 10*3/uL High 4.1-10.5 [facility] Comment on above: Performed By: #### Treva CALDERON MG #### [address] White Blood Count 12.5 [CFU]/mL High 4.1-10.5 [facility] Comment on above: Performed By: #### Treva CALDERON MG #### [address] Ferritinon 12-24-2024 Ferritin [Mass/Vol] 384.2 ng/mL High 23.9-336.2 [facility] Comment on above: Result Comment: PERF ORMED BY: [address] [address] PATHOLOGIST MICROCOMPUTER SUPPORT SPECIALIST CARLOS BIRMINGHAM M.D. Performed By: #### G INEZ #### Point of Care testing , Glucose Poct Glucometerson 0 12-24-2024 Glucose [Mass/Vol] 295 mg/dL Normal [facility] Comment on above: Result Comment: [facility] Glucose Reference Range is dependent on time and content of last meal. Glucose of more than 200 mg/dL in a nonstressed, ambulatory subject supports the diagnosis of Diabetes Mellitus. PERFORMED BY: [place] [address] PATHOLOGIST MICROCOMPUTER SUPPORT SPECIALIST CARLOS BIRMINGHAM M.D. Performed By: #### Treva CALDERON, MG #### [address] Glucose [Mass/Vol] 258 mg/dL Normal [facility] Comment on above: Result Comment: [facility] Glucose Reference Range is dependent on time and content of last meal. Glucose of more than 200 mg/dL in a nonstressed, ambulatory subject supports the diagnosis of Diabetes Mellitus. PERFORMED BY: [place] [address] PATHOLOGIST MICROCOMPUTER SUPPORT SPECIALIST CARLOS BIRMINGHAM M.D. Performed By: #### R YUMIKO, MG #### [place] [address] [place] Glucose [Mass/Vol] 178 mg/dL Normal [facility] Comment on above: Result Comment: [facility] Glucose Reference Range is dependent on time and content of last meal. Glucose of more than 200 mg/dL in a nonstressed, ambulatory subject supports the diagnosis of Diabetes Mellitus. PERFORMED BY: [place] [address] PATHOLOGIST MICROCOMPUTER SUPPORT SPECIALIST CARLOS BIRMINGHAM M.D. Performed By: #### R YUMIKO, MG #### [place] [address] [place] Glucose [Mass/Vol] 169 mg/dL Normal [facility] Comment on above: Result Comment: [facility] Glucose Reference Range is dependent on time and content of last meal. Glucose of more than 200 mg/dL in a nonstressed, ambulatory subject supports the diagnosis of Diabetes Mellitus. PERFORMED BY: [place] [phone] PATHOLOGIST MICROCOMPUTER SUPPORT SPECIALIST CARLOS BIRMINGHAM M.D. Performed By: #### G INEZ #### Point of Care testing , Commemt1 Glu2: Cleaned Meter Normal [facility] Comment on above: Result Comment: PERF ORMED BY: [place] [phone] PATHOLOGIST MICROCOMPUTER SUPPORT SPECIALIST CARLOS BIRMINGHAM M.D. Performed By: #### R ENAL, MG #### [address] Glucose [Mass/Vol] 154 mg/dL Normal [facility] Comment on above: Result Comment: [facility] Glucose Reference Range is dependent on time and content of last meal. Glucose of more than 200 mg/dL in a nonstressed, ambulatory subject supports the diagnosis of Diabetes Mellitus. Performed By: #### R ENAL, MG #### [address] Glucose [Mass/Vol] 146 mg/dL Normal [facility] Comment on above: Result Comment: [facility] Glucose Reference Range is dependent on time and content of last meal. Glucose of more than 200 mg/dL in a nonstressed, ambulatory subject supports the diagnosis of Diabetes Mellitus. PERFORMED BY: [place] [phone] PATHOLOGIST MICROCOMPUTER SUPPORT SPECIALIST CARLOS BIRMINGHAM M.D. Performed By: #### R ENAL, MG #### [address] Hepatitis Acute Panelon 11-28 HBsAg Screen Negative Normal Negative [facility] Comment on above: Performed By: #### H EPACUTE, HBCAB, HBSAB #### [facility] , Hepatitis A Antibody IgM Negative Normal Negative [facility] Comment on above: Result Comment: A ne gative anti-HAV IgM result suggests no recent or current HAV infection. Performed By: #### H EPACUTE, HBCAB, HBSAB #### [facility] , Hepatitis B Core Antibody IgM Negative Normal Negative [facility] Comment on above: Performed By: #### H EPACUTE, HBCAB, HBSAB #### [facility] , Hepatitis C Virus Antibody Non-Reactive Normal Non Reactive [facility] Comment on above: Performed By: #### H EPACUTE, HBCAB, HBSAB #### [facility] , Interpretation Hepatitis C Comment Normal . [facility] Comment on above: Result Comment: Not infected with HCV unless early or acute infection is suspected (which may be delayed in an immunocompromised individual), or other evidence exists to indicate HCV infection. Performed By: #### H EPACUTE, HBCAB, HBSAB #### [facility] , Hepatitis B Core Antibodyon 12-24-2024 Hepatitis B Core Antibody Negative Normal Negative [facility] Comment on above: Result Comment: Perf ormed at: - [facility] [address] [id number] Angle Furnaceman: Mata Brian PhD, Phone: [phone] PERFORMED BY: [place] [id number] PATHOLOGIST MICROCOMPUTER SUPPORT SPECIALIST CARLOS BIRMINGHAM M.D. Performed By: #### H EPACUTE, HBCAB, HBSAB #### [facility] , Hepatitis B Surface Antibody on 12-24-2024 Hepatitis B Surface Antibody Non-Reactive Normal . [facility] Comment on above: Result Comment: Non Reactive: Not immune to HBV infection. Anti-HBs undetectable or less than 10 mIU/mL. Reactive: Evidence of HBV immunity. Anti-HBs levels greater than 10 mIU/mL. Performed By: #### H EPACUTE, HBCAB, HBSAB #### [facility] , Iron and TIBC Profileon 11-28 % Iron Saturation 75.5 % High 20-50 [facility] Comment on above: Performed By: #### G LULS #### Point of Care testing , Iron [Mass/Vol] 148 ug/dL Normal 50-212 [facility] Comment on above: Performed By: #### G LULS #### Point of Care testing , Total Iron Binding Capacity 196 ug/dL Low 255-450 [facility] Comment on above: Performed By: #### G LULS #### Point of Care testing , Transferrin [Mass/Vol] 140 mg/dL Low 203-362 [facility] Comment on above: Performed By: #### G LULS #### Point of Care testing , Magnesiumon 12-24-2024 Magnesium [Mass/Vol] 2.5 mg/dL Normal 1.9-2.7 [facility] Comment on above: Result Comment: PERF ORMED BY: [place] [address] PATHOLOGIST MICROCOMPUTER SUPPORT SPECIALIST CARLOS BIRMINGHAM M.D. Performed By: #### G ABDONLS #### Point of Care testing , Renal Function Panelon 12-24 Albumin [Mass/Vol] 3.2 g/dL Low 3.5-5.7 [facility] Comment on above: Performed By: #### G ABDONLS #### Point of Care testing , Anion gap [Moles/Vol] 18.0 mmol/L High 6.0-15.0 [facility] Comment on above: Performed By: #### G ABDONLS #### Point of Care testing , Calcium [Mass/Vol] 8.5 mg/dL Low 8.6-10.3 [facility] Comment on above: Performed By: #### G LULS #### Point of Care testing , Chloride [Moles/Vol] 99 mmol/L Normal 98-107 [facility] Comment on above: Performed By: #### G LULS #### Point of Care testing , Performed By: #### R YUMIKO MG #### [address] CO2 [Moles/Vol] 19.9 mmol/L Low 21.0-31.0 [facility] Comment on above: Performed By: #### G LULS #### Point of Care testing , Creatinine [Mass/Vol] 6.40 mg/dL High 0.70-1.30 [facility] Comment on above: Performed By: #### G LULS #### Point of Care testing , Creatinine Clr Calc Pharmacy 17.81 Normal [facility] Comment on above: Performed By: #### G LULS #### Point of Care testing , GFR/1.73 sq M.predicted MDRD (S/P/Bld) [Vol rate/Area] 9.059 mL/min/{1.73_m2} Normal [facility] Comment on above: Performed By: #### G LULS #### Point of Care testing , Glucose [Mass/Vol] 148 mg/dL High 70-100 [facility] Comment on above: Result Comment: [facility] Glucose Reference Range is dependent on time and content of last meal. Glucose of more than 200 mg/dL in a nonstressed, ambulatory subject supports the diagnosis of Diabetes Mellitus. ADA recommended reference range Performed By: #### G LULS #### Point of Care testing , Phosphate [Mass/Vol] 6.5 mg/dL High 2.5-4.5 [facility] Comment on above: Performed By: #### G LULS #### Point of Care testing , Potassium [Moles/Vol] 4.9 mmol/L Normal 3.5-5.1 [facility] Comment on above: Performed By: #### G LULS #### Point of Care testing , Sodium [Moles/Vol] 132 mmol/L Low 136-145 [facility] Comment on above: Performed By: #### G LULS #### Point of Care testing , Urea nitrogen [Mass/Vol] 70 mg/dL High 7-25 [facility] Comment on above: Performed By: #### G LULS #### Point of Care testing , ABO/Rh Retypeon 12-23-2024 ABO/RH Recheck Result Positive Normal [facility] Comment on above: Order Comment: redra w Result Comment: PERF ORMED BY: [address] [place] [address] PATHOLOGIST MICROCOMPUTER SUPPORT SPECIALIST CARLOS BIRMINGHAM M.D. Basic Metabolic Panelon 08-2 Anion gap [Moles/Vol] 15.6 mmol/L High 6.0-15.0 [facility] Comment on above: Performed By: #### H EPACUTE, HBCAB, HBSAB #### [facility] , Calcium [Mass/Vol] 9.0 mg/dL Normal 8.6-10.3 [facility] Comment on above: Performed By: #### H EPACUTE, HBCAB, HBSAB #### [facility] , Chloride [Moles/Vol] 104 mmol/L Normal 98-107 [facility] Comment on above: Performed By: #### H EPACUTE, HBCAB, HBSAB #### [facility] , CO2 [Moles/Vol] 19.8 mmol/L Low 21.0-31.0 [facility] Comment on above: Performed By: #### H EPACUTE, HBCAB, HBSAB #### [facility] , Creatinine [Mass/Vol] 5.46 mg/dL High 0.70-1.30 [facility] Comment on above: Performed By: #### H EPACUTE, HBCAB, HBSAB #### [facility] , Creatinine Clr Calc Pharmacy 19.66 Normal [facility] Comment on above: Performed By: #### H EPACUTE, HBCAB, HBSAB #### [facility] , GFR/1.73 sq M.predicted MDRD (S/P/Bld) [Vol rate/Area] 10.962 mL/min/{1.73_m2} Normal [facility] Comment on above: Performed By: #### H EPACUTE, HBCAB, HBSAB #### [facility] , Glucose [Mass/Vol] 288 mg/dL High 70-100 [facility] Comment on above: Result Comment: [facility] Glucose Reference Range is dependent on time and content of last meal. Glucose of more than 200 mg/dL in a nonstressed, ambulatory subject supports the diagnosis of Diabetes Mellitus. ADA recommended reference range Performed By: #### H EPACUTE, HBCAB, HBSAB #### [facility] , Potassium [Moles/Vol] 5.4 mmol/L High 3.5-5.1 [facility] Comment on above: Performed By: #### H EPACUTE, HBCAB, HBSAB #### [facility] , Sodium [Moles/Vol] 134 mmol/L Low 136-145 [facility] Comment on above: Performed By: #### H EPACUTE, HBCAB, HBSAB #### [facility] , Urea nitrogen [Mass/Vol] 65 mg/dL High 7-25 [facility] Comment on above: Performed By: #### H EPACUTE, HBCAB, HBSAB #### [facility] , Anion gap [Moles/Vol] 17.6 mmol/L High 6.0-15.0 [facility] Comment on above: Performed By: #### H EPACUTE, HBCAB, HBSAB #### [facility] , Calcium [Mass/Vol] 9.2 mg/dL Normal 8.6-10.3 [facility] Comment on above: Performed By: #### H EPACUTE, HBCAB, HBSAB #### [facility] , Chloride [Moles/Vol] 104 mmol/L Normal 98-107 [facility] Comment on above: Performed By: #### H EPACUTE, HBCAB, HBSAB #### [facility] , CO2 [Moles/Vol] 17.2 mmol/L Low 21.0-31.0 [facility] Comment on above: Performed By: #### H EPACUTE, HBCAB, HBSAB #### [facility] , Creatinine [Mass/Vol] 5.53 mg/dL High 0.70-1.30 [facility] Comment on above: Performed By: #### H EPACUTE, HBCAB, HBSAB #### [facility] , Creatinine Clr Calc Pharmacy 19.41 Normal [facility] Comment on above: Result Comment: PERF ORMED BY: [facility] [place] [address] PATHOLOGIST MICROCOMPUTER SUPPORT SPECIALIST CARLOS BIRMINGHAM M.D. Performed By: #### H EPACUTE, HBCAB, HBSAB #### [facility] , GFR/1.73 sq M.predicted MDRD (S/P/Bld) [Vol rate/Area] 10.795 mL/min/{1.73_m2} Normal [facility] Comment on above: Performed By: #### H EPACUTE, HBCAB, HBSAB #### [facility] , Glucose [Mass/Vol] 280 mg/dL High 70-100 [facility] Comment on above: Result Comment: [facility] Glucose Reference Range is dependent on time and content of last meal. Glucose of more than 200 mg/dL in a nonstressed, ambulatory subject supports the diagnosis of Diabetes Mellitus. ADA recommended reference range Performed By: #### H EPACUTE, HBCAB, HBSAB #### [facility] , Potassium [Moles/Vol] 5.8 mmol/L High 3.5-5.1 [facility] Comment on above: Result Comment: Hemo lysis is present at a level that could interfere with the result. Contact lab if redraw is required Performed By: #### H EPACUTE, HBCAB, HBSAB #### [facility] , Sodium [Moles/Vol] 133 mmol/L Low 136-145 [facility] Comment on above: Performed By: #### H EPACUTE, HBCAB, HBSAB #### [facility] , Urea nitrogen [Mass/Vol] 66 mg/dL High 7-25 [facility] Comment on above: Performed By: #### H EPACUTE, HBCAB, HBSAB #### [facility] , Creatine Kinaseon 12-23-2024 CK [Catalytic activity/Vol] 190 U/L Normal 30-223 [facility] Comment on above: Result Comment: PERF ORMED BY: [place] [address] PATHOLOGIST MICROCOMPUTER SUPPORT SPECIALIST CARLOS BIRMINGHAM M.D. Performed By: #### R MG YUMIKO #### [address] ECG 12 lead ECGon 12-23-2024 ECG 12 lead ECG [facility] [place] [address] Electrocardiograph Report Signed Patient: Rashard Lyman MR#: [id number] : 1960 Acct:[id number] Age/Sex: 64 / M ADM Date: 12/23/24 Loc: Room: [address] [place] [address] Type: ADM IN Attending Dr: Leno Dela [...] for LVH, may be normal variant ( Dinesh product ) Nonspecific T wave abnormality Prolonged QT Abnormal ECG When compared with ECG of 25-Aug-2020 07:19, ST no longer elevated in Inferior leads ST no longer elevated in Anterior leads Confirmed by Adrian Farmer ([id number]) on 12/23/2024 2:14:11 PM Referred By: Electronically Signed By: Adrian Farmer Transcribed By: MUS Signed By Adrian Farmer MD 12/23/24 1414 Normal [facility] tran[facility]horacicon [facility] echo transthoracic [facility] [place] [address] Echocardiogram Signed Patient: Rashard Lyman MR#: [id number] : 1960 Acct:[id number] Age/Sex: 64 / M ADM Date: 12/23/24 Loc: 4N Room: 9C8519-5 Type: ADM IN Attending Dr: Leno Dela Cruz MD Ordering Provider: Ghislaine Arias MD Date of Service: 12/23/24 ECH/ECH echo transthoracic: History of pericarditis and pericardial effusion. Preop Copies to: Ghislaine Arias MD Rashard Hopson 10:27 AM Patient Location: : 1960 Gender: [...] -+ + Tech Comments previous echo in elera. No previous echo. Transcribed By: SCV Performed At: 12/23/24 1027 Signed By: Ghislaine Arias MD 12/23/24 1135 Normal [facility] Ferritinon 12-23-2024 Ferritin [Mass/Vol] 378.8 ng/mL High 23.9-336.2 [facility] Comment on above: Result Comment: PERF ORMED BY: [place] [address] [place] [address] PATHOLOGIST MICROCOMPUTER SUPPORT SPECIALIST CARLOS BIRMINGHAM M.D. Performed By: #### H EPACUTE, HBCAB, HBSAB #### [facility] , Glucose Poct Glucometerson 0 12-23-2024 Glucose [Mass/Vol] 223 mg/dL Normal [facility] Comment on above: Result Comment: [facility] Glucose Reference Range is dependent on time and content of last meal. Glucose of more than 200 mg/dL in a nonstressed, ambulatory subject supports the diagnosis of Diabetes Mellitus. PERFORMED BY: [place] [address] PATHOLOGIST MICROCOMPUTER SUPPORT SPECIALIST CARLOS BIRMINGHAM M.D. Performed By: #### H EPACUTE, HBCAB, HBSAB #### [facility] , Glucose [Mass/Vol] 201 mg/dL Normal [facility] Comment on above: Result Comment: [facility] Glucose Reference Range is dependent on time and content of last meal. Glucose of more than 200 mg/dL in a nonstressed, ambulatory subject supports the diagnosis of Diabetes Mellitus. PERFORMED BY: [place] [address] PATHOLOGIST MICROCOMPUTER SUPPORT SPECIALIST CARLOS BIRMINGHAM M.D. Performed By: #### G LULS #### Point of Care testing , Glucose [Mass/Vol] 234 mg/dL Normal [facility] Comment on above: Result Comment: [facility] Glucose Reference Range is dependent on time and content of last meal. Glucose of more than 200 mg/dL in a nonstressed, ambulatory subject supports the diagnosis of Diabetes Mellitus. PERFORMED BY: [place] [address] PATHOLOGIST MICROCOMPUTER SUPPORT SPECIALIST CARLOS BIRMINGHAM M.D. Performed By: #### R ENJOHN, MG #### [address] Glucose [Mass/Vol] 292 mg/dL Normal [facility] [facility] Comment on above: Result Comment: [facility] Glucose Reference Range is dependent on time and content of last meal. Glucose of more than 200 mg/dL in a nonstressed, ambulatory subject supports the diagnosis of Diabetes Mellitus. PERFORMED BY: [facility] [address] [place] [address] PATHOLOGIST MICROCOMPUTER SUPPORT SPECIALIST CARLOS BIRMINGHAM M.D. Performed By: #### G INEZ #### Point of Care testing , Hemogram CBC Without Diffon 12-23-2024 Erythrocyte distribution width (RBC) [Ratio] 15.0 % High 12.0-14.8 [facility] Comment on above: Performed By: #### H EPACUTE, HBCAB, HBSAB #### [facility] , Hematocrit (Bld) [Volume fraction] 39.1 % Normal 38.8-50.0 [facility] Comment on above: Performed By: #### H EPACUTE, HBCAB, HBSAB #### [facility] , Hemoglobin (Bld) [Mass/Vol] 12.7 g/dL Low 13.0-17.0 [facility] Comment on above: Performed By: #### H EPACUTE, HBCAB, HBSAB #### [facility] , MCH (RBC) [Entitic mass] 28.4 pg Normal 27.5-35.2 [facility] Comment on above: Performed By: #### H EPACUTE, HBCAB, HBSAB #### [facility] , MCV (RBC) [Entitic vol] 87.7 fL Normal 83.5-101 [facility] Comment on above: Performed By: #### H EPACUTE, HBCAB, HBSAB #### [facility] , Mean Corpuscular HGB Conc 32.4 g/dL Low 32.5-35.6 [facility] Comment on above: Performed By: #### H EPACUTE, HBCAB, HBSAB #### [facility] , Platelet mean volume (Bld) [Entitic vol] 6.8 fL Normal 6.6-10.1 [facility] Comment on above: Result Comment: PERF ORMED BY: [facility] [address] [place] [address] PATHOLOGIST MICROCOMPUTER SUPPORT SPECIALIST CARLOS BIRMINGHAM M.D. Performed By: #### H EPACUTE, HBCAB, HBSAB #### [facility] , Platelets (Bld) [#/Vol] 225 10*3/uL Normal 150-450 [facility] Comment on above: Performed By: #### H EPACUTE, HBCAB, HBSAB #### [facility] , RBC (Bld) [#/Vol] 4.46 10*6/uL Normal 3.90-5.60 [facility] Comment on above: Performed By: #### H EPACUTE, HBCAB, HBSAB #### [facility] , White Blood Count 16.0 [CFU]/mL High 4.1-10.5 [facility] Comment on above: Performed By: #### H EPACUTE, HBCAB, HBSAB #### [facility] , Iron and TIBC Profileon 11-28 % Iron Saturation 13.6 % Low 20-50 [facility] Comment on above: Performed By: #### H EPACUTE, HBCAB, HBSAB #### [facility] , Iron [Mass/Vol] 30 ug/dL Low 50-212 [facility] Comment on above: Performed By: #### H EPACUTE, HBCAB, HBSAB #### [facility] , Total Iron Binding Capacity 221 ug/dL Low 255-450 [facility] Comment on above: Performed By: #### H EPACUTE, HBCAB, HBSAB #### [facility] , Transferrin [Mass/Vol] 158 mg/dL Low 203-362 [facility] Comment on above: Performed By: #### H EPACUTE, HBCAB, HBSAB #### [facility] , Potassiumon 12-23-2024 Potassium [Moles/Vol] 4.8 mmol/L Normal 3.5-5.1 [facility] Comment on above: Result Comment: PERF ORMED BY: [place] [address] PATHOLOGIST MICROCOMPUTER SUPPORT SPECIALIST CARLOS BIRMINGHAM M.D. Performed By: #### R ENAL, MG #### [address] Renal Function Panelon 12-23 Albumin [Mass/Vol] 3.4 g/dL Low 3.5-5.7 [facility] Comment on above: Performed By: #### R ENAL #### [address] Anion gap [Moles/Vol] 13.6 mmol/L Normal 6.0-15.0 [facility] Comment on above: Performed By: #### R ENAL #### [address] Calcium [Mass/Vol] 8.9 mg/dL Normal 8.6-10.3 [facility] Comment on above: Performed By: #### R ENAL #### [address] Chloride [Moles/Vol] 100 mmol/L Normal 98-107 [facility] Comment on above: Performed By: #### R ENAL #### [address] CO2 [Moles/Vol] 24.3 mmol/L Normal 21.0-31.0 [facility] Comment on above: Performed By: #### R ENAL #### [address] Creatinine [Mass/Vol] 5.69 mg/dL High 0.70-1.30 [facility] Comment on above: Performed By: #### R ENAL #### [address] Creatinine Clr Calc Pharmacy 18.86 Normal [facility] Comment on above: Result Comment: PERF ORMED BY: [place] [address] PATHOLOGIST MICROCOMPUTER SUPPORT SPECIALIST CARLOS BIRMINGHAM M.D. Performed By: #### R ENAL #### [place] [address] [place] GFR/1.73 sq M.predicted MDRD (S/P/Bld) [Vol rate/Area] 10.432 mL/min/{1.73_m2} Normal [facility] Comment on above: Performed By: #### R ENAL #### [place] [address] [place] Glucose [Mass/Vol] 209 mg/dL High 70-100 [facility] Comment on above: Result Comment: [facility] Glucose Reference Range is dependent on time and content of last meal. Glucose of more than 200 mg/dL in a nonstressed, ambulatory subject supports the diagnosis of Diabetes Mellitus. ADA recommended reference range Performed By: #### R ENAL #### [place] [address] [place] Phosphate [Mass/Vol] 6.9 mg/dL High 2.5-4.5 [facility] Comment on above: Performed By: #### R ENAL #### [place] [address] [place] Potassium [Moles/Vol] 4.9 mmol/L Normal 3.5-5.1 [facility] Comment on above: Performed By: #### R ENAL #### [place] [address] [place] Sodium [Moles/Vol] 133 mmol/L Low 136-145 [facility] Comment on above: Performed By: #### R ENAL #### [place] [address] [place] Urea nitrogen [Mass/Vol] 64 mg/dL High 7-25 [facility] Comment on above: Performed By: #### R ENAL #### [place] [address] [place] Troponin I High Sensitivityo n 12-23-2024 Troponin I High Sensitivity 188 Off scale high 0-20 [facility] Comment on above: Result Comment: Crit ical Result : Called to and read back by: MAC BECERRA at: 12/23/2024 06:03:32 by:ALAN The Troponin units of report have been changed to meet the Chest Pain Accreditation requirement, element EC5.M1l2. Troponin units are changed from pg/ml to ng/L. Also, the decimal is removed and results are in whole numbers. PERFORMED BY: [place] [address] PATHOLOGIST MICROCOMPUTER SUPPORT SPECIALIST CARLOS BIRMINGHAM M.D. Performed By: #### H EPACUTE, HBCAB, HBSAB #### [facility] , Troponin I High Sensitivity 201 Off scale high 0-20 [facility] Comment on above: Result Comment: Crit ical Result : Called to and read back by: MAC BECERRA at: 12/23/2024 04:28:13 by:ALAN The Troponin units of report have been changed to meet the Chest Pain Accreditation requirement, element EC5.M1l2. Troponin units are changed from pg/ml to ng/L. Also, the decimal is removed and results are in whole numbers. PERFORMED BY: [place] [address] PATHOLOGIST MICROCOMPUTER SUPPORT SPECIALIST CARLOS BIRMINGHAM M.D. Performed By: #### R YUMIKO MG #### [place] [id number] [facility] Type and Screenon 12-23-2024 ABO and Rh group Nom (Bld) Blood group A Rh(D) positive Normal [facility] US renal BIon 12-23-2024 US renal BI [facility] [place] [address] Ultrasound Report Signed Patient: Rashard Lyman MR#: [id number] : 1960 Acct:[id number] Age/Sex: 64 / M ADM Date: 12/23/24 Loc: 4N Room: 0G7561-4 Type: ADM IN Attending Dr: Leno Dela [...] findings. Impression dictated by: Clayton Cuevas Jr., D.OVaishali 12/23/2024 3:36 PM Dictation Location: [place] [address] Tech: Diana Bernard Transcribed By: JU 12/23/241535 Dictated By: Clayton Cuevas Jr, DO 12/23/241534 Signed By: 12/23/241535 Normal [facility] No Panel InformationOrdered By: Chino Elliott on 10-26-2024 Miscellaneous Pathology Test See comment [facility] Comment on above: See report. Scanned copy available in EMR. Pathology Request for Lab Co rpon 10-26-2024 Pathology Request for Lab [place] Normal [facility] Comment on above: Order Comment: RIGHT FOREFOOT Result Comment: See report. Scanned copy available in EMR. PERFORMED BY: [address] [address] PATHOLOGIST MICROCOMPUTER SUPPORT SPECIALIST CARLOS BIRMINGHAM M.D. Performed By: #### G LULS #### Point of Care testing , No Panel InformationOrdered By: Chino Elliott on 08-28-2024 Miscellaneous Pathology Test See comment [facility] Comment on above: See report. Scanned copy available in EMR. Pathology Request for Lab Co rpon 08-28-2024 Pathology Request for Lab [place] Normal [facility] Comment on above: Order Comment: RIGHT HALLUX Result Comment: See report. Scanned copy available in EMR. PERFORMED BY: [address] [place] [address] PATHOLOGIST MICROCOMPUTER SUPPORT SPECIALIST NIMA MCCLELLAN M.D. Performed By: #### H EPACUTE, HBCAB, HBSAB #### [facility] , BLOOD UREA NITROGENon 2023 Urea nitrogen [Mass/Vol] 40 mg/dL High 5-27 [facility] Comment on above: Performed By: #### E LEC, 3094-0, FACILITY MAINTENANCE SUPERVISOR, 54777-4 #### [facility] ([id number]) [address] [place] [address] #### 43786-8, HA1C #### [facility] ([id number]) [address] [place] [address], [address] [place] [address] CBC AND AUTO DIFFon 02-17-20 24 ABSOLUTE BASOPHIL 0.0 X10E9/L Normal 0.0-0.2 [facility] Comment on above: Performed By: #### U A #### [facility] ([id number]) [address] [place] [address] ABSOLUTE NEUTROPHIL 5.2 X10E9/L Normal 1.5-6.6 [facility] Comment on above: Performed By: #### U A #### [facility] ([id number]) [address] [place] [address] 418[address] Basophils/100 WBC (Bld) 0.6 % Normal [facility] Comment on above: Performed By: #### U A #### [facility] ([id number]) [address] [place] [address] Eosinophils (Bld) [#/Vol] 0.6 10*3/uL High 0.0-0.4 [facility] Comment on above: Performed By: #### U A #### [facility] ([id number]) [address] [place] [address] Eosinophils/100 WBC (Bld) 6.5 % Normal [facility] Comment on above: Performed By: #### U A #### [facility] ([id number]) [address] [place] [address], [place] [address] Erythrocyte distribution width (RBC) [Ratio] 14.2 % Normal 11.5-15.0 [facility] Comment on above: Performed By: #### U A #### [facility] ([id number]) [address] [place] [address] Hematocrit (Bld) [Volume fraction] 37.5 % Low 39-49 [facility] Comment on above: Performed By: #### U A #### [facility] ([id number]) [address] [place] [address] Hemoglobin (Bld) [Mass/Vol] 12.3 g/dL Low 13.0-17.0 [facility] Comment on above: Performed By: #### U A #### [facility] ([id number]) [address] [place] [address] Lymphocytes (Bld) [#/Vol] 1.9 10*3/uL Normal 1.0-3.5 [facility] Comment on above: Performed By: #### U A #### [facility] ([id number]) [address] [place] [address] Lymphocytes/100 WBC (Bld) 21.4 % Normal [facility] Comment on above: Performed By: #### U A #### [facility] ([id number]) [address] [place] [address] MCH (RBC) [Entitic mass] 29.3 pg Normal 27-34 [facility] Comment on above: Performed By: #### U A #### [facility] ([id number]) [address] [place] [address] MCHC (RBC) [Mass/Vol] 32.7 g/dL Normal 32-36 [facility] Comment on above: Performed By: #### U A #### [facility] ([id number]) [address] [place] [address] MCV (RBC) [Entitic vol] 90 fL Normal 80-100 [facility] Comment on above: Performed By: #### U A #### [facility] ([id number]) [address] [place] [address] Monocytes (Bld) [#/Vol] 1.1 10*3/uL High 0-0.9 [facility] Comment on above: Performed By: #### U A #### [facility] ([id number]) [address] [place] [address] Monocytes/100 WBC (Bld) 12.8 % Normal [facility] Comment on above: Performed By: #### U A #### [facility] ([id number]) [address] [place] [address] 935[address] Neutrophils/100 WBC (Bld) 58.7 % Normal [facility] Comment on above: Performed By: #### U A #### [facility] ([id number]) [address] [place] [address] 16568 Platelet mean volume (Bld) [Entitic vol] 6.6 fL Low 7-12 [facility] Comment on above: Performed By: #### U A #### [facility] ([id number]) [address] [place] [address] Platelets (Bld) [#/Vol] 281 10*3/uL Normal 150-450 [facility] Comment on above: Performed By: #### U A #### [facility] ([id number]) [address] [place] [address] RBC COUNT 4.19 X10E12/L Normal 4.10-5.70 [facility] Comment on above: Performed By: #### U A #### [facility] ([id number]) [address] [place] [address] WBC (Bld) [#/Vol] 8.8 10*3/uL Normal 4.0-11.0 [facility] Comment on above: Performed By: #### U A #### [facility] ([id number]) [address] [place] [address] CREATININEon 02-17-2024 Creatinine [Mass/Vol] 3.74 mg/dL High 0.70-1.20 [facility] Comment on above: Result Comment: METH OD TRACEABLE TO IDMS STANDARD Performed By: #### E LEC, 3094-0, FACILITY MAINTENANCE SUPERVISOR, 28137-6 #### [facility] ([id number]) [address] [place] [address] 12830 #### 36302-3, HA1C #### [facility] ([id number]) [address], [address] [place] [address] GFR/1.73 sq M.predicted among non-blacks MDRD (S/P/Bld) [Vol rate/Area] 17 mL/min/{1.73_m2} Low >59 [facility] Comment on above: Result Comment: Reported eGFR is based on the CKD-EPI 2020 equation that does not use a race coefficient. Performed By: #### E LEC, 3094-0, FACILITY MAINTENANCE SUPERVISOR, 79599-8 #### [facility] ([id number]) [address] [place] [address] 88346 #### 20345-5, HA1C #### [facility] ([id number]) [address], [address] [place] [address] ELECTROLYTESon 02-17-2024 Anion gap [Moles/Vol] 8 mmol/L Normal 5-15 [facility] Comment on above: Performed By: #### E LEC, 3094-0, FACILITY MAINTENANCE SUPERVISOR, 88067-3 #### [facility] ([id number]) [address] [place] [address] 55660 #### 55166-0, HA1C #### [facility] ([id number]) [address] [place] [address], [address] [place] [address] Chloride [Moles/Vol] 106 mmol/L Normal 98-109 [facility] Comment on above: Performed By: #### E LEC, 3094-0, FACILITY MAINTENANCE SUPERVISOR, 43274-1 #### [facility] ([id number]) [address] [place] [address] 01671 #### 97961-1, HA1C #### [facility] ([id number]) [address] [place] [address], [address] [place] [address] CO2 [Moles/Vol] 21 mmol/L Low 22-32 [facility] Comment on above: Performed By: #### E LEC, 3094-0, FACILITY MAINTENANCE SUPERVISOR, 47909-3 #### [facility] ([id number]) [address] [place] [address] 34316 #### 76618-9, HA1C #### [facility] ([id number]) [address] [place] [address], [address] [place] [address] Potassium [Moles/Vol] 5.2 mmol/L High 3.5-5.0 [facility] Comment on above: Performed By: #### E LEC, 3094-0, FACILITY MAINTENANCE SUPERVISOR, 15376-8 #### [facility] ([id number]) [address] [place] [address] 24236 #### 99261-9, HA1C #### [facility] ([id number]) [address] [place] [address], [address] [place] [address] Sodium [Moles/Vol] 135 mmol/L Normal 134-146 [facility] Comment on above: Performed By: #### E LEC, 3094-0, FACILITY MAINTENANCE SUPERVISOR, 88457-6 #### [facility] ([id number]) [address] [place] [address] 13568 #### 06081-3, HA1C #### [facility] ([id number]) [address], [address] [place] [address] BLOOD UREA NITROGENon 2023 Urea nitrogen [Mass/Vol] 50 mg/dL High 5-27 [facility] Comment on above: Performed By: #### U A #### [facility] ([id number]) [address] [place] [address] CALCIUMon 01-20-2024 Calcium [Mass/Vol] 8.7 mg/dL Normal 8.5-10.5 [facility] Comment on above: Performed By: #### B MP, CBCA, 1987-08, 30410-9 #### [facility] ([id number]) [address] [place] [address] 10562 #### 89806-8 #### [facility] ([id number]) [address] [facility], [address] [place] [address] CBC AND AUTO DIFFon 01-20-20 24 ABSOLUTE BASOPHIL 0.1 X10E9/L Normal 0.0-0.2 [facility] Comment on above: Performed By: #### B MP, CBCA, 1987-08, 56162-6 #### [facility] ([id number]) [address] [place] [address] 32732 #### 44613-2 #### [facility] ([id number]) [address] [facility], [address] [place] [address] ABSOLUTE NEUTROPHIL 6.0 X10E9/L Normal 1.5-6.6 [facility] Comment on above: Performed By: #### B MP, CBCA, 1987-08, 06942-8 #### [facility] ([id number]) [address] [place] [address] 16862 #### 90131-1 #### [facility] ([id number]) [address], [address] [place] [address] Basophils/100 WBC (Bld) 0.6 % Normal [facility] Comment on above: Performed By: #### B MP, CBCA, 1987-08, 70184-4 #### [facility] ([id number]) [address] [place] [address] 88552 #### 51506-0 #### [facility] ([id number]) [address] [facility], [address] [place] [address] Eosinophils (Bld) [#/Vol] 0.3 10*3/uL Normal 0.0-0.4 [facility] Comment on above: Performed By: #### Laura RONDON, CBCA, 1987-08, #### [facility] ([id number]) [address] [place] [address] 58721 #### 71473-3 #### [facility] ([id number]) [address] [facility], [address] [place] [address] Eosinophils/100 WBC (Bld) 3.1 % Normal [facility] Comment on above: Performed By: #### Laura RONDON, CBCA, 1987-08, #### [facility] ([id number]) [address] [place] [address] 42086 #### 13701-8 #### [facility] ([id number]) [address], [address] [place] [address] Erythrocyte distribution width (RBC) [Ratio] 13.5 % Normal 11.5-15.0 [facility] Comment on above: Performed By: #### Laura MP, CBCA, 1987-08, #### [facility] ([id number]) [address] [place] [address] 77560 #### 72909-0 #### [facility] ([id number]) [address], [address] [place] [address] Hematocrit (Bld) [Volume fraction] 36.1 % Low 39-49 [facility] Comment on above: Performed By: #### Laura RONDON, CBCA, 1987-08, 60370-0 #### [facility] ([id number]) [address] [place] [address] 43910 #### 86567-8 #### [facility] ([id number]) [address], [address] [place] [address] Hemoglobin (Bld) [Mass/Vol] 11.8 g/dL Low 13.0-17.0 [facility] Comment on above: Performed By: #### B ALCON, CBCA, 1987-08, 01043-8 #### [facility] ([id number]) [address] [place] [address] 50948 #### 37047-8 #### [facility] ([id number]) [address], [address] [place] [address] Lymphocytes (Bld) [#/Vol] 2.0 10*3/uL Normal 1.0-3.5 [facility] Comment on above: Performed By: #### B ALCON, CBCA, 1987-08, 63859-9 #### [facility] ([id number]) [address] [place] [address] 48000 #### 82996-8 #### [facility] ([id number]) [address], [address] [place] [address] Lymphocytes/100 WBC (Bld) 20.7 % Normal [facility] Comment on above: Performed By: #### B ALCON, CBCA, 1987-08, #### [facility] ([id number]) [address] [place] [address] 05143 #### 11722-8 #### [facility] ([id number]) [address] [place] [address], [address] [place] [address] MCH (RBC) [Entitic mass] 29.1 pg Normal 27-34 [facility] Comment on above: Performed By: #### B ALCON CBCA, 1987-08, 57335-5 #### [facility] ([id number]) [address] [place] [address] 80689 #### 25392-8 #### [facility] ([id number]) [address] [place] [address], [address] [place] [address] MCHC (RBC) [Mass/Vol] 32.8 g/dL Normal 32-36 [facility] Comment on above: Performed By: #### Laura RONDON CBCA, 1987-08, #### [facility] ([id number]) [address] [place] [address] 17907 #### 60413-5 #### [facility] ([id number]) [address] [place] [address], [address] [place] [address] MCV (RBC) [Entitic vol] 89 fL Normal 80-100 [facility] Comment on above: Performed By: #### Laura RONDON CBCA, 1987-08, #### [facility] ([id number]) [address] [place] [address] 80800 #### 25520-1 #### [facility] ([id number]) [address] [place] [address], [address] [place] [address] Monocytes (Bld) [#/Vol] 1.2 10*3/uL High 0-0.9 [facility] Comment on above: Performed By: #### Laura RONDON CBCA, 1987-08, 40344-2 #### [facility] ([id number]) [address] [place] [address] 38666 #### 49654-9 #### [facility] ([id number]) [address] [facility], [address] [place] [address] Monocytes/100 WBC (Bld) 12.3 % Normal [facility] Comment on above: Performed By: #### Laura MP, CBCA, 1987-08, 17930-5 #### [facility] ([id number]) [address] [place] [address] 27612 #### 68712-9 #### [facility] ([id number]) [address] [place] [address], [address] [place] [address] Neutrophils/100 WBC (Bld) 63.3 % Normal [facility] Comment on above: Performed By: #### B ALCON, CBCA, 1987-08, 43183-0 #### [facility] ([id number]) [address] [place] [address] 31304 #### 20424-1 #### [facility] ([id number]) [address] [place] [address], [address] [place] [address] Platelet mean volume (Bld) [Entitic vol] 7.7 fL Normal 7-12 [facility] Comment on above: Performed By: #### Laura MP, CBCA, 1987-08, 62846-1 #### [facility] ([id number]) [address] [place] [address] 87615 #### 90641-9 #### [facility] ([id number]) [address] [facility], [address] [place] [address] Platelets (Bld) [#/Vol] 264 10*3/uL Normal 150-450 [facility] Comment on above: Performed By: #### B MP, CBCA, 1987-08, 30392-5 #### [facility] ([id number]) [address] [place] [address]28[address] #### [id number] #### [facility] ([id number]) [address] [facility], [address] [place] [address] RBC COUNT 4.07 X10E12/L Low 4.10-5.70 [facility] Comment on above: Performed By: #### B ALCON CBCA, 1987-08, 38017-6 #### [facility] ([id number]) [address] [place] [address] #### [id number] #### [facility] ([id number]) [address] [facility], [address] [address] WBC (Bld) [#/Vol] 9.4 10*3/uL Normal 4.0-11.0 [facility] Comment on above: Performed By: #### B ALCON, CBCA, 1987-08, 55148-4 #### [facility] ([id number]) [address] [place] [address] 11289 #### [id number] #### [facility] ([id number]) [address] [facility], [address] [place] [address] CREATININEon 01-20-2024 Creatinine [Mass/Vol] 3.14 mg/dL High 0.70-1.20 [facility] Comment on above: Result Comment: METH OD TRACEABLE TO IDMS STANDARD Performed By: #### U A #### [facility] ([id number]) [address] [place] [address] GFR/1.73 sq M.predicted among non-blacks MDRD (S/P/Bld) [Vol rate/Area] 21 mL/min/{1.73_m2} Low >59 [facility] Comment on above: Result Comment: Reported eGFR is based on the CKD-EPI 2020 equation that does not use a race coefficient. Performed By: #### U A #### [facility] ([id number]) [address] [place] [address], [place] [address] ELECTROLYTESon 01-20-2024 Anion gap [Moles/Vol] 8 mmol/L Normal 5-15 [facility] Comment on above: Performed By: #### U A #### [facility] ([id number]) [address] [place] [address]117 Chloride [Moles/Vol] 104 mmol/L Normal 98-109 [facility] Comment on above: Performed By: #### U A #### [facility] ([id number]) [address] [place] [address] 66138 CO2 [Moles/Vol] 19 mmol/L Low 22-32 [facility] Comment on above: Performed By: #### U A #### [facility] ([id number]) [address] [place] [address] 85811 Potassium [Moles/Vol] 4.9 mmol/L Normal 3.5-5.0 [facility] Comment on above: Performed By: #### U A #### [facility] ([id number]) [address] [place] [address] 72341 Sodium [Moles/Vol] 131 mmol/L Low 134-146 [facility] Comment on above: Performed By: #### U A #### [facility] ([id number]) [address] [place] [address] 06419 ESR Photometric method (Bld) [Velocity]on 01-20-2024 ESR, ERYTHROCYTE SEDIMENTATION RATE 98 mm/h High 0-20 [facility] Comment on above: Performed By: #### U A #### [facility] ([id number]) [address] [place] [address] [place] [address] HGB A1C (GLYCO-HGB)on 2023 Glucose [Mass/Vol] 289 mg/dL Normal [facility] Comment on above: Performed By: #### U A #### [facility] ([id number]) [address] [place] [address] 44303 HbA1c (Bld) [Mass fraction] 11.7 % High 4.4-5.6 [facility] Comment on above: Result Comment: NOTE ADA Guidelines Result HgbA1c Normal : less than 5.7 % Prediabetes : 5.7 % to 6.4 % Diabetes : > 6.4 % Use with caution in patients with abnormal hemoglobin variants as the half-life of red blood cells and in vivo glycation rates are affected. Performed By: #### U A #### [facility] ([id number]) [address] [place] [address] 62013 LIVER PANELon 01-20-2024 Albumin [Mass/Vol] 2.9 g/dL Low 3.2-5.3 [facility] Comment on above: Performed By: #### U A #### [facility] ([id number]) [address] [place] [address] 34954 ALP [Catalytic activity/Vol] 79 U/L Normal 39-130 [facility] Comment on above: Performed By: #### U A #### [facility] ([id number]) [address] [place] [address] 24230 ALT [Catalytic activity/Vol] 26 U/L Normal 0-40 [facility] Comment on above: Performed By: #### U A #### [facility] ([id number]) [address] [place] [address] 81873 AST [Catalytic activity/Vol] 19 U/L Normal 0-41 [facility] Comment on above: Performed By: #### U A #### [facility] ([id number]) [address] [place] [address] 79966 Bilirubin [Mass/Vol] 0.5 mg/dL Normal 0.3-1.2 [facility] Comment on above: Performed By: #### U A #### [facility] ([id number]) [address] [place] [address] 02066 Bilirubin.indirect [Mass/Vol] mg/dL Normal 0.0-0.4 [facility] Comment on above: Performed By: #### U A #### [facility] ([id number]) [address] [place] [address] 54649 Protein [Mass/Vol] 6.9 g/dL Normal 6.0-8.0 [facility] Comment on above: Performed By: #### U A #### [facility] ([id number]) [address] [place] [address] Lipid 1996 panelon 4 Cholesterol [Mass/Vol] 136 mg/dL Low 150-200 [facility] Comment on above: Performed By: #### U A #### [facility] ([id number]) [address] [place] [address] 09608 Cholesterol in HDL [Mass/Vol] 40 mg/dL Normal >39 [facility] Comment on above: Result Comment: HDL <40 mg/dL - High Risk HDL > or = 40mg/dL- Desirable HDL >60 mg/dL - Negative Risk Performed By: #### U A #### [facility] ([id number]) [address] [place] [address] 38855 Cholesterol in LDL [Mass/Vol] 62 mg/dL Normal <130 [facility] Comment on above: Result Comment: LDL <100 mg/dL - Desirable LDL >160 mg/dL - High Risk Performed By: #### U A #### [facility] ([id number]) [address] [place] [address], [place] [address] Cholesterol in VLDL [Mass/Vol] 34 mg/dL High 0-30 [facility] Comment on above: Performed By: #### U A #### [facility] ([id number]) [address] [place] [address], [place] [address] CHOLESTEROL:HDL 3.4 Normal 1.0-5.0 [facility] Comment on above: Performed By: #### U A #### [facility] ([id number]) [address] [place] [address] 85912 Triglyceride [Mass/Vol] 172 mg/dL High 27-150 [facility] Comment on above: Performed By: #### U A #### [facility] ([id number]) [address] [place] [address], [place] [address] Natriuretic peptide B [Mass/ Vol]on 01-20-2024 Natriuretic peptide B (Bld) [Mass/Vol] 88 pg/mL Normal <100.0 [facility] Comment on above: Performed By: #### U A #### [facility] ([id number]) [address] [place] [address], [place] [address] Vitamin D+Metabolites [Mass/ Vol]on 01-20-2024 VITAMIN D 25 HYD TOT 15.1 ng/mL Low 30-100 [facility] Comment on above: Result Comment: Vitamin D status 25 [place] Vitamin D Deficiency <20 ng/mL Insufficiency 20-29 ng/mL Sufficiency 30-100 ng/mL Toxicity >100 ng/mL NOTE: A pediatric reference range has not been established by the automated equipment engineer technician of this kit. The [employer] recommends a Vitamin D level of = or >20ng/mL in infants and children. Performed By: #### U A #### [facility] ([id number]) [address] [place] [address]9829 BLOOD UREA NITROGENon 2023 Urea nitrogen [Mass/Vol] 50 mg/dL High 5-27 [facility] Comment on above: Performed By: #### B MP, CBCA, 1987-08, 90781-6 #### [facility] ([id number]) [address] [place] [address] 07697 #### 11017-5 #### [facility] ([id number]) [address], [address] [place] [address] CBC AND AUTO DIFFon 12-16-19 24 ABSOLUTE BASOPHIL 0.0 X10E9/L Normal 0.0-0.2 [facility] Comment on above: Performed By: #### B MP, CBCA, 1987-08, 41694-6 #### [facility] ([id number]) [address] [place] [address] 38257 #### 42820-2 #### [facility] ([id number]) [address], [address] [place] [address] ABSOLUTE NEUTROPHIL 5.7 X10E9/L Normal 1.5-6.6 [facility] Comment on above: Performed By: #### B MP, CBCA, 1987-08, 63747-9 #### [facility] ([id number]) [address] [place] [address] 75681 #### 49204-2 #### [facility] ([id number]) [address], [address] [place] [address] Basophils/100 WBC (Bld) 0.4 % Normal [facility] Comment on above: Performed By: #### B MP, CBCA, 1987-08, 75389-3 #### [facility] ([id number]) [address] [place] [address] 41914 #### 23184-6 #### [facility] ([id number]) [address], [address] [place] [address] Eosinophils (Bld) [#/Vol] 0.4 10*3/uL Normal 0.0-0.4 [facility] Comment on above: Performed By: #### B MP, CBCA, 1987-08, 92255-2 #### [facility] ([id number]) [address] [place] [address] 80198 #### 02850-3 #### [facility] ([id number]) [address], [address] [place] [address] Eosinophils/100 WBC (Bld) 4.8 % Normal [facility] Comment on above: Performed By: #### B MP, CBCA, 1987-08, 66684-9 #### [facility] ([id number]) [address] [place] [address] 04884 #### 32748-2 #### [facility] ([id number]) [address], [address] [place] [address] Erythrocyte distribution width (RBC) [Ratio] 14.7 % Normal 11.5-15.0 [facility] Comment on above: Performed By: #### B MP, CBCA, 1987-08, 39577-6 #### [facility] ([id number]) [address] [place] [address] 02846 #### 86587-5 #### [facility] ([id number]) [address], [address] [place] [address] Hematocrit (Bld) [Volume fraction] 39.0 % Normal 39-49 [facility] Comment on above: Performed By: #### B ALOCN, CBCA, 1987-08, 55205-5 #### [facility] ([id number]) [address] [place] [address] 22209 #### 95244-3 #### [facility] ([id number]) [address], [address] [place] [address] Hemoglobin (Bld) [Mass/Vol] 13.3 g/dL Normal 13.0-17.0 [facility] Comment on above: Performed By: #### B ALCON, CBCA, 1987-08, 56051-3 #### [facility] ([id number]) [address] [place] [address] 40223 #### 77106-3 #### [facility] ([id number]) [address], [address] [place] [address] Lymphocytes (Bld) [#/Vol] 1.7 10*3/uL Normal 1.0-3.5 [facility] Comment on above: Performed By: #### Laura RONDON, CBCA, 1987-08, #### [facility] ([id number]) [address] [place] [address] 06929 #### 25454-1 #### [facility] ([id number]) [address], [address] [place] [address] Lymphocytes/100 WBC (Bld) 19.3 % Normal [facility] Comment on above: Performed By: #### Laura RONDON, CBCA, 1987-08, 77930-3 #### [facility] ([id number]) [address] [place] [address] 60089 #### 79190-8 #### [facility] ([id number]) [address], [address] [place] [address] MCH (RBC) [Entitic mass] 29.8 pg Normal 27-34 [facility] Comment on above: Performed By: #### B ALCON CBCA, 1987-08, 56116-8 #### [facility] ([id number]) [address] [place] [address] 16211 #### 20896-0 #### [facility] ([id number]) [address] [facility], [address] [place] [address] MCHC (RBC) [Mass/Vol] 34.0 g/dL Normal 32-36 [facility] Comment on above: Performed By: #### B ALCON CBCA, 1987-08, 06868-3 #### [facility] ([id number]) [address] [place] [address] 86942 #### 07798-3 #### [facility] ([id number]) [address] [facility], [address] [place] [address] MCV (RBC) [Entitic vol] 88 fL Normal 80-100 [facility] Comment on above: Performed By: #### Laura RONDON CBCA, 1987-08, 46431-6 #### [facility] ([id number]) [address] [place] [address] 36616 #### 29498-3 #### [facility] ([id number]) [address] [facility], [address] [place] [address] Monocytes (Bld) [#/Vol] 0.8 10*3/uL Normal 0-0.9 [facility] Comment on above: Performed By: #### Laura RONDON CBCA, 1987-08, 94485-8 #### [facility] ([id number]) [address] [place] [address] 97073 #### 67558-9 #### [facility] ([id number]) [address] [facility], [address] [place] [address] Monocytes/100 WBC (Bld) 8.8 % Normal [facility] Comment on above: Performed By: #### B ALCON, CBCA, 1987-08, 69636-4 #### [facility] ([id number]) [address] [place] [address] 65546 #### 75540-2 #### [facility] ([id number]) [address] [facility], [address] [place] [address] Neutrophils/100 WBC (Bld) 66.7 % Normal [facility] Comment on above: Performed By: #### B ALCON, CBCA, 1987-08, 97672-8 #### [facility] ([id number]) [address] [place] [address] 54703 #### 66289-9 #### [facility] ([id number]) [address] [facility], [address] [place] [address] Platelet mean volume (Bld) [Entitic vol] 7.7 fL Normal 7-12 [facility] Comment on above: Performed By: #### Laura RONDON, CBCA, 1987-08, 58357-9 #### [facility] ([id number]) [address] [place] [address] 84992 #### 15648-8 #### [facility] ([id number]) [address] [facility], [address] [place] [address] Platelets (Bld) [#/Vol] 286 10*3/uL Normal 150-450 [facility] Comment on above: Performed By: #### B ACLON, CBCA, 1987-08, 78479-7 #### [facility] ([id number]) [address] [place] [address] 33144 #### 25893-6 #### [facility] ([id number]) [address] [facility], [address] [place] [address] RBC COUNT 4.46 X10E12/L Normal 4.10-5.70 [facility] Comment on above: Performed By: #### B JAMES RONDON, 1987-08, #### [facility] ([id number]) [address] [place] [address] 39603 #### 32666-2 #### [facility] ([id number]) [address] [address] WBC (Bld) [#/Vol] 8.6 10*3/uL Normal 4.0-11.0 [facility] Comment on above: Performed By: #### B JAMES RONDON, 1987-08, #### [facility] ([id number]) [address] [place] [address] 67657 #### 07414-8 #### [facility] ([id number]) [address] [facility], [address] [address] CREATININEon 12-16-2023 Creatinine [Mass/Vol] 3.32 mg/dL High 0.70-1.20 [facility] Comment on above: Result Comment: METH OD TRACEABLE TO IDMS STANDARD Performed By: #### B JAMES RONDON, 1987-08, #### [facility] ([id number]) [address] [place] [address] 74847 #### 12006-6 #### [facility] ([id number]) [address] [address] GFR/1.73 sq M.predicted among non-blacks MDRD (S/P/Bld) [Vol rate/Area] 20 mL/min/{1.73_m2} Low >59 [facility] Comment on above: Result Comment: Reported eGFR is based on the CKD-EPI 2020 equation that does not use a race coefficient. Performed By: #### B JAMES RONDON, 1987-08, #### [facility] ([id number]) [address] [place] [address] 39382 #### 95077-9 #### [facility] ([id number]) [address] [place] [address] ELECTROLYTESon 12-16-2023 Anion gap [Moles/Vol] 8 mmol/L Normal 5-15 [facility] Comment on above: Performed By: #### B ALCON, CBCA, 1987-08, 04361-9 #### [facility] ([id number]) [address] [place] [address] 09850 #### 89542-6 #### [facility] ([id number]) [address], [address] [place] [address] Chloride [Moles/Vol] 103 mmol/L Normal 98-109 [facility] Comment on above: Performed By: #### Laura RONDON CBCA, 1987-08, 89017-4 #### [facility] ([id number]) [address] [place] [address] 31004 #### 13819-7 #### [facility] ([id number]) [address], [address] [place] [address] CO2 [Moles/Vol] 18 mmol/L Low 22-32 [facility] Comment on above: Performed By: #### Laura RONDON, CBCA, 1987-08, 70731-3 #### [facility] ([id number]) [address] [place] [address] 19571 #### 74891-9 #### [facility] ([id number]) [address] [place] [address] Potassium [Moles/Vol] 4.5 mmol/L Normal 3.5-5.0 [facility] Comment on above: Performed By: #### B ALCON CBCA, 1987-08, 41755-8 #### [facility] ([id number]) [address] [facility], [place] [address] #### 79448-8 #### [facility] ([id number]) [address], [address] [place] [address] Sodium [Moles/Vol] 129 mmol/L Low 134-146 [facility] Comment on above: Performed By: #### B MP, CBCA, 1987-08, 75706-6 #### [facility] ([id number]) [address] [facility], [place] [address] #### 68977-7 #### [facility] ([id number]) [address], [address] [place] [address] BLOOD UREA NITROGENon 2023 Urea nitrogen [Mass/Vol] 41 mg/dL High 5-[address] [facility] Comment on above: Performed By: #### C BCA, 3094-0, FACILITY MAINTENANCE SUPERVISOR, ELEC #### [facility] ([id number]) [address], [address] [place] [address] CBC AND AUTO DIFFon 11-19-19 24 ABSOLUTE BASOPHIL 0.2 X10E9/L Normal 0.0-0.2 [facility] Comment on above: Performed By: #### C BCA, 3094-0, FACILITY MAINTENANCE SUPERVISOR, ELEC #### [facility] ([id number]) [address], [address] [place] [address] Basophils/100 WBC (Bld) 1.9 % Normal [facility] Comment on above: Performed By: #### C BCA, 3094-0, FACILITY MAINTENANCE SUPERVISOR, ELEC #### [facility] ([id number]) [address], [address] [place] [address] KATHERINE 1+ Abnormal NONE [facility] Comment on above: Performed By: #### C BCA, 3094-0, FACILITY MAINTENANCE SUPERVISOR, ELEC #### [facility] ([id number]) [address] [address] [place] [address] Eosinophils (Bld) [#/Vol] 0.4 10*3/uL Normal 0.0-0.[address] [facility] Comment on above: Performed By: #### C BCA, 3094-0, FACILITY MAINTENANCE SUPERVISOR, ELEC #### [facility] ([id number]) [address] [address] Eosinophils/100 WBC (Bld) 3.8 % Normal [facility] Comment on above: Performed By: #### C BCA, 3094-0, FACILITY MAINTENANCE SUPERVISOR, ELEC #### [facility] ([id number]) [address] [address] Erythrocyte distribution width (RBC) [Ratio] 14.4 % Normal 11.5-15.[address] [facility] Comment on above: Performed By: #### C BCA, 3094-0, FACILITY MAINTENANCE SUPERVISOR, ELEC #### [facility] ([id number]) [address] [address] Hematocrit (Bld) [Volume fraction] 40.3 % Normal 39-[address] [facility] Comment on above: Performed By: #### C BCA, 3094-0, FACILITY MAINTENANCE SUPERVISOR, ELEC #### [facility] ([id number]) [address] [address] Hemoglobin (Bld) [Mass/Vol] 13.4 g/dL Normal 13.0-17.[address] [facility] Comment on above: Performed By: #### C BCA, 3094-0, FACILITY MAINTENANCE SUPERVISOR, ELEC #### [facility] ([id number]) [address] [address] Lymphocytes (Bld) [#/Vol] 2.0 10*3/uL Normal 1.0-3.[address] [facility] Comment on above: Performed By: #### C BCA, 3094-0, FACILITY MAINTENANCE SUPERVISOR, ELEC #### [facility] ([id number]) [address], [address] [place] [address] Lymphocytes/100 WBC (Bld) 21.7 % Normal [facility] Comment on above: Performed By: #### C BCA, 3094-0, FACILITY MAINTENANCE SUPERVISOR, ELEC #### [facility] ([id number]) [address], [facility] [address] [place] [address] MCH (RBC) [Entitic mass] 29.6 pg Normal 27-[address] [facility] Comment on above: Performed By: #### C BCA, 3094-0, FACILITY MAINTENANCE SUPERVISOR, ELEC #### [facility] ([id number]) [address], [facility] [address] [place] [address] MCHC (RBC) [Mass/Vol] 33.4 g/dL Normal 32-[address] [facility] Comment on above: Performed By: #### C BCA, 3094-0, FACILITY MAINTENANCE SUPERVISOR, ELEC #### [facility] ([id number]) [address], [facility] [address] [place] [address] MCV (RBC) [Entitic vol] 89 fL Normal 80-[address] [facility] Comment on above: Performed By: #### C BCA, 3094-0, FACILITY MAINTENANCE SUPERVISOR, ELEC #### [facility] ([id number]) [address], [address] [place] [address] Monocytes (Bld) [#/Vol] 0.6 10*3/uL Normal 0-0.[address] [facility] Comment on above: Performed By: #### C BCA, 3094-0, FACILITY MAINTENANCE SUPERVISOR, ELEC #### [facility] ([id number]) [address], [facility] [address] [place] [address] Monocytes/100 WBC (Bld) 6.6 % Normal [facility] Comment on above: Performed By: #### C BCA, 3094-0, FACILITY MAINTENANCE SUPERVISOR, ELEC #### [facility] ([id number]) [address], [address] [place] [address] Neutrophils (Bld) [#/Vol] 6.1 10*3/uL Normal 1.5-6.[address] [facility] Comment on above: Performed By: #### C IRENE, 3094-0, FACILITY MAINTENANCE SUPERVISOR, ELEC #### [facility] ([id number]) [address], [facility] [address] [place] [address] Platelet mean volume (Bld) [Entitic vol] 8.0 fL Normal 7-[address] [facility] Comment on above: Performed By: #### C IRENE, 3094-0, FACILITY MAINTENANCE SUPERVISOR, ELEC #### [facility] ([id number]) [address], [facility] [address] [place] [address] Platelets (Bld) [#/Vol] 253 10*3/uL Normal 150-[address] [facility] Comment on above: Performed By: #### Gabrielle BONILLA, 3094-0, FACILITY MAINTENANCE SUPERVISOR, ELEC #### [facility] ([id number]) [address], [facility] [address] [place] [address] RBC COUNT 4.54 X10E12/L Normal 4.10-5.[address] [facility] Comment on above: Performed By: #### Gabrielle BONILLA, 3094-0, FACILITY MAINTENANCE SUPERVISOR, ELEC #### [facility] ([id number]) [address], [facility] [address] [place] [address] SEG NEUTROPHIL 66.0 % Normal [facility] Comment on above: Performed By: #### C IRENE, 3094-0, FACILITY MAINTENANCE SUPERVISOR, ELEC #### [facility] ([id number]) [address] [address] [place] [address] WBC (Bld) [#/Vol] 9.3 10*3/uL Normal 4.0-11.0 [facility] Comment on above: Performed By: #### Gabrielle BONILLA, 3094-0, FACILITY MAINTENANCE SUPERVISOR, ELEC #### [facility] ([id number]) [address], [address] [place] [address] CREATININEon 11-19-2023 Creatinine [Mass/Vol] 3.18 mg/dL High 0.60-1.[address] [facility] Comment on above: Result Comment: METH OD TRACEABLE TO IDMS STANDARD Performed By: #### C BCA, 3094-0, FACILITY MAINTENANCE SUPERVISOR, ELEC #### [facility] ([id number]) [address], [address] [place] [address] GFR/1.73 sq M.predicted among non-blacks MDRD (S/P/Bld) [Vol rate/Area] 21 mL/min/{1.73_m2} Low >[address] [facility] Comment on above: Result Comment: Reported eGFR is based on the CKD-EPI 2020 equation that does not use a race coefficient. Performed By: #### C BCA, 3094-0, FACILITY MAINTENANCE SUPERVISOR, ELEC #### [facility] ([id number]) [address], [address] [place] [address] ELECTROLYTESon 11-19-2023 Anion gap [Moles/Vol] 9 mmol/L Normal 5-[address] [facility] Comment on above: Performed By: #### C BCA, 3094-0, FACILITY MAINTENANCE SUPERVISOR, ELEC #### [facility] ([id number]) [address], [address] [place] [address] Chloride [Moles/Vol] 100 mmol/L Normal 98-109 [facility] Comment on above: Performed By: #### C BCA, 3094-0, FACILITY MAINTENANCE SUPERVISOR, ELEC #### [facility] ([id number]) [address], [address] [place] [address] CO2 [Moles/Vol] 22 mmol/L Normal 22-[address] [facility] Comment on above: Performed By: #### C BCA, 3094-0, FACILITY MAINTENANCE SUPERVISOR, ELEC #### [facility] ([id number]) [address], [address] [place] [address] Potassium [Moles/Vol] 3.9 mmol/L Normal 3.5-5.[address] [facility] Comment on above: Performed By: #### C BCA, 3094-0, FACILITY MAINTENANCE SUPERVISOR, ELEC #### [facility] ([id number]) [address], [address] [place] [address] Sodium [Moles/Vol] 131 mmol/L Low 134-146 [facility] Comment on above: Performed By: #### C BCA, 3094-0, FACILITY MAINTENANCE SUPERVISOR, ELEC #### [facility] ([id number]) [address], [address] [place] [address] BLOOD UREA NITROGENon 2023 Urea nitrogen [Mass/Vol] 35 mg/dL High 5-27 [facility] Comment on above: Performed By: #### B ALCON CBCA, 1987-08, 86658-6 #### [facility] ([id number]) [address] [place] [address] #### [id number] #### [facility] ([id number]) [address], [address] [place] [address] CALCIUMon 10-23-2023 Calcium [Mass/Vol] 8.1 mg/dL Low 8.5-10.5 [facility] Comment on above: Performed By: #### Laura RONDON, CBCA, 1987-08, 83816-4 #### [facility] ([id number]) [address] [place] [address] #### [id number] #### [facility] ([id number]) [address], [address] [place] [address] CBC AND AUTO DIFFon 10-23-19 24 ABSOLUTE BASOPHIL 0.0 X10E9/L Normal 0.0-0.2 [facility] Comment on above: Performed By: #### Laura RONDON, CBCA, 1987-08, 76919-4 #### [facility] ([id number]) [address] [place] [id number] #### [id number] #### [facility] LAB ([id number]) [address] [place] [address], [address] [place] [address] ABSOLUTE NEUTROPHIL 5.4 X10E9/L Normal 1.5-6.6 [facility] Comment on above: Performed By: #### B MP, CBCA, 1987-08, 47298-2 #### [facility] ([id number]) [address] [place] [address] 29263 #### 68369-2 #### [facility] ([id number]) [address] [place] [address], [address] [place] [address] Basophils/100 WBC (Bld) 0.5 % Normal [facility] Comment on above: Performed By: #### Laura RONDON, CBCA, 1987-08, 36556-1 #### [facility] ([id number]) [address] [place] [address] 37862 #### 50100-3 #### [facility] ([id number]) [address] [place] [address], [address] [place] [address] Eosinophils (Bld) [#/Vol] 0.3 10*3/uL Normal 0.0-0.4 [facility] Comment on above: Performed By: #### B MP, CBCA, 1987-08, 72292-2 #### [facility] ([id number]) [address] [place] [address] 99524 #### 95638-3 #### [facility] ([id number]) [address] [place] [address], [address] [place] [address] Eosinophils/100 WBC (Bld) 3.2 % Normal [facility] Comment on above: Performed By: #### B MP, CBCA, 1987-08, 15930-4 #### [facility] ([id number]) [address] [place] [address] 67611 #### 50711-9 #### [facility] ([id number]) [address] [facility], [address] [place] [address] Erythrocyte distribution width (RBC) [Ratio] 14.4 % Normal 11.5-15.0 [facility] Comment on above: Performed By: #### B ALCON, CBCA, 1987-08, 91944-1 #### [facility] ([id number]) [address] [place] [address] 94961 #### 05361-0 #### [facility] ([id number]) [address] [facility], [address] [place] [address] Hematocrit (Bld) [Volume fraction] 39.7 % Normal 39-49 [facility] Comment on above: Performed By: #### Laura RONDON, CBCA, 1987-08, 86831-6 #### [facility] ([id number]) [address] [place] [address] 07843 #### 70899-9 #### [facility] ([id number]) [address] [facility], [address] [place] [address] Hemoglobin (Bld) [Mass/Vol] 13.1 g/dL Normal 13.0-17.0 [facility] Comment on above: Performed By: #### Laura RONDON, CBCA, 1987-08, 49305-3 #### [facility] ([id number]) [address] [place] [address] 09468 #### 44681-1 #### [facility] ([id number]) [address] [facility], [address] [place] [address] Lymphocytes (Bld) [#/Vol] 2.1 10*3/uL Normal 1.0-3.5 [facility] Comment on above: Performed By: #### Laura MP, CBCA, 1987-08, 84760-3 #### [facility] ([id number]) [address] [place] [address] 85307 #### 13245-8 #### [facility] ([id number]) [address], [address] [place] [address] Lymphocytes/100 WBC (Bld) 24.5 % Normal [facility] Comment on above: Performed By: #### Laura RONDON, CBCA, 1987-08, #### [facility] ([id number]) [address] [place] [address] 77542 #### 12996-0 #### [facility] ([id number]) [address] [facility], [address] [place] [address] MCH (RBC) [Entitic mass] 29.0 pg Normal 27-34 [facility] Comment on above: Performed By: #### Laura RONDON, CBCA, 1987-08, #### [facility] ([id number]) [address] [place] [address] 52165 #### 99407-1 #### [facility] ([id number]) [address], [address] [place] [address] MCHC (RBC) [Mass/Vol] 32.9 g/dL Normal 32-36 [facility] Comment on above: Performed By: #### Laura RONDON, CBCA, 1987-08, #### [facility] ([id number]) [address] [place] [address] 66484 #### 57682-8 #### [facility] ([id number]) [address], [address] [place] [address] MCV (RBC) [Entitic vol] 88 fL Normal 80-100 [facility] Comment on above: Performed By: #### Laura RONDON, CBCA, 1987-08, #### [facility] ([id number]) [address] [place] [address] 22743 #### 31111-7 #### [facility] ([id number]) [address], [address] [place] [address] Monocytes (Bld) [#/Vol] 0.8 10*3/uL Normal 0-0.9 [facility] Comment on above: Performed By: #### B MP, CBCA, 1987-08, #### [facility] ([id number]) [address] [place] [address] 24679 #### 88596-4 #### [facility] ([id number]) [address], [address] [place] [address] Monocytes/100 WBC (Bld) 9.2 % Normal [facility] Comment on above: Performed By: #### Laura MP, CBCA, 1987-08, #### [facility] ([id number]) [address] [place] [address] 24408 #### 16800-2 #### [facility] ([id number]) [address], [address] [place] [address] Neutrophils/100 WBC (Bld) 62.6 % Normal [facility] Comment on above: Performed By: #### Laura MP, CBCA, 1987-08, #### [facility] ([id number]) [address] [place] [address] 85193 #### 45855-6 #### [facility] ([id number]) [address], [address] [place] [address] Platelet mean volume (Bld) [Entitic vol] 8.6 fL Normal 7-12 [facility] Comment on above: Performed By: #### B MP, CBCA, 1987-08, 21254-4 #### [facility] ([id number]) [address] [place] [address] 07623 #### 93990-1 #### [facility] ([id number]) [address], [address] [place] [address] Platelets (Bld) [#/Vol] 247 10*3/uL Normal 150-450 [facility] Comment on above: Performed By: #### B MP, CBCA, 1987-08, 07855-5 #### [facility] ([id number]) [address] [place] [address] 66884 #### 41622-5 #### [facility] ([id number]) [address] [facility], [address] [place] [address] RBC COUNT 4.51 X10E12/L Normal 4.10-5.70 [facility] Comment on above: Performed By: #### B MP, CBCA, 1987-08, 34938-3 #### [facility] ([id number]) [address] [place] [address] 54762 #### 34379-3 #### [facility] ([id number]) [address] [facility], [address] [place] [address] WBC (Bld) [#/Vol] 8.5 10*3/uL Normal 4.0-11.0 [facility] Comment on above: Performed By: #### B MP, CBCA, 1987-08, 86831-7 #### [facility] ([id number]) [address] [place] [address] 81393 #### 43800-8 #### [facility] ([id number]) [address] [facility], [address] [place] [address] CREATININEon 10-23-2023 Creatinine [Mass/Vol] 2.69 mg/dL High 0.70-1.20 [facility] Comment on above: Result Comment: METH OD TRACEABLE TO IDMS STANDARD Performed By: #### B JAMES RONDON, 1987-08, 19796-9 #### [facility] ([id number]) [address] [place] [address] 63328 #### 78229-5 #### [facility] ([id number]) [address] [facility], [address] [place] [address] GFR/1.73 sq M.predicted among non-blacks MDRD (S/P/Bld) [Vol rate/Area] 26 mL/min/{1.73_m2} Low >59 [facility] Comment on above: Result Comment: Reported eGFR is based on the CKD-EPI 2020 equation that does not use a race coefficient. Performed By: #### B JAMES RONDON, 1987-08, 62853-4 #### [facility] ([id number]) [address] [place] [address] 43923 #### 80204-0 #### [facility] ([id number]) [address] [facility], [address] [place] [address] Calcium.ionized (Bld) [Moles /Vol]on 10-23-2023 PORTABLE ICA 4.8 mg/dL Normal 4.5-5.3 [facility] Comment on above: Performed By: #### B JAMES RONDON, 1987-08, 53847-8 #### [facility] ([id number]) [address] [place] [address] 08993 #### 96373-4 #### [facility] ([id number]) [address] [place] [address], [address] [place] [address] ELECTROLYTESon 10-23-2023 Anion gap [Moles/Vol] 5 mmol/L Normal 5-15 [facility] Comment on above: Performed By: #### B JAMES RONDON, 1987-08, 12589-2 #### [facility] ([id number]) [address] [place] [address] 89983 #### 61997-2 #### [facility] ([id number]) [address] [facility], [address] [place] [address] Chloride [Moles/Vol] 108 mmol/L Normal 98-109 [facility] Comment on above: Performed By: #### JAMES Sanchez MP, 1987-08, 84117-2 #### [facility] ([id number]) [address] [place] [address] 47533 #### 45951-3 #### [facility] ([id number]) [address] [facility], [address] [place] [address] CO2 [Moles/Vol] 18 mmol/L Low 22-32 [facility] Comment on above: Performed By: #### JAMES Sanchez MP, 1987-08, 26504-6 #### [facility] ([id number]) [address] [place] [address] 61297 #### 25770-6 #### [facility] ([id number]) [address] [facility], [address] [place] [address] Potassium [Moles/Vol] 4.1 mmol/L Normal 3.5-5.0 [facility] Comment on above: Performed By: #### JAMES Sanchez MP, 1987-08, 27877-0 #### [facility] ([id number]) [address] [place] [address] 37714 #### 22445-7 #### [facility] ([id number]) [address] [facility], [address] [place] [address] Sodium [Moles/Vol] 131 mmol/L Low 134-146 [facility] Comment on above: Performed By: #### JAMES Sanchez MP, 1987-08, 19410-1 #### [facility] ([id number]) [address] [place] [address] #### 64800-9 #### [facility] ([id number]) [address], [address] [place] [address] ESR Photometric method (Bld) [Velocity]on 10-23-2023 ESR, ERYTHROCYTE SEDIMENTATION RATE 89 mm/h High 0-20 [facility] Comment on above: Performed By: #### B ALCON, CBCA, 1987-08, 87998-2 #### [facility] ([id number]) [address] [place] [address] 70005 #### 38825-9 #### [facility] ([id number]) [address], [address] [place] [address] HGB A1C (GLYCO-HGB)on 2023 Glucose [Mass/Vol] 235 mg/dL Normal [facility] Comment on above: Performed By: #### B ALCON, CBCA, 1987-08, 00167-0 #### [facility] ([id number]) [address] [place] [address] 68057 #### 23014-8 #### [facility] ([id number]) [address], [address] [place] [address] HbA1c (Bld) [Mass fraction] 9.8 % High 4.4-5.6 [facility] Comment on above: Result Comment: NOTE ADA Guidelines Result HgbA1c Normal : less than 5.7 % Prediabetes : 5.7 % to 6.4 % Diabetes : > 6.4 % Use with caution in patients with abnormal hemoglobin variants as the half-life of red blood cells and in vivo glycation rates are affected. Performed By: #### B ALCON, CBCA, 1987-08, 00363-7 #### [facility] ([id number]) [address] [place] [address] 62873 #### 73455-0 #### [facility] ([id number]) [address] [facility], [address] [place] [address] LIVER PANELon 10-23-2023 Albumin [Mass/Vol] 2.8 g/dL Low 3.2-5.3 [facility] Comment on above: Performed By: #### JAMES Sanchez MP, 1987-08, 25163-1 #### [facility] ([id number]) [address] [place] [address] 38468 #### 40814-4 #### [facility] ([id number]) [address] [facility], [address] [place] [address] ALP [Catalytic activity/Vol] 86 U/L Normal 39-130 [facility] Comment on above: Performed By: #### Laura RONDON CBCJarrett, 1987-08, 88298-8 #### [facility] ([id number]) [address] [place] [address] 11611 #### 45906-8 #### [facility] ([id number]) [address] [facility], [address] [place] [address] ALT [Catalytic activity/Vol] 19 U/L Normal 0-40 [facility] Comment on above: Performed By: #### Laura RONDON CBCJarrett, 1987-08, 95610-6 #### [facility] ([id number]) [address] [place] [address] 86665 #### 56551-5 #### [facility] ([id number]) [address] [facility], [address] [place] [address] AST [Catalytic activity/Vol] 15 U/L Normal 0-41 [facility] Comment on above: Performed By: #### Laura RONDON CBCA, 1987-08, 28306-5 #### [facility] ([id number]) [address] [place] [address] 21756 #### 80293-9 #### [facility] ([id number]) [address] [facility], [address] [place] [address] Bilirubin [Mass/Vol] 0.5 mg/dL Normal 0.3-1.2 [facility] Comment on above: Performed By: #### Laura RONDON CBCA, 1987-08, 97305-5 #### [facility] ([id number]) [address] [place] [address] 90755 #### 52826-8 #### [facility] ([id number]) [address] [address], [address] [place] [address] Bilirubin.indirect [Mass/Vol] mg/dL Normal 0.0-0.4 [facility] Comment on above: Performed By: #### Laura RONDON CBCA, 1987-08, 93737-9 #### [facility] ([id number]) [address] [place] [address] 65603 #### 71196-7 #### [facility] ([id number]) [address] [place] [address], [address] [place] [address] Protein [Mass/Vol] 6.4 g/dL Normal 6.0-8.0 [facility] Comment on above: Performed By: #### Laura RONDON CBCA, 1987-08, 23539-7 #### [facility] ([id number]) [address] [place] [address] 37354 #### 33304-6 #### [facility] ([id number]) [facility], [address] [place] [address] Lipid 1996 panelon 4 Cholesterol [Mass/Vol] 135 mg/dL Low 150-200 [facility] Comment on above: Performed By: #### B JAMES RONDON, 62-6 #### [facility] ([id number]) [address] [place] [address] #### 41151-3 #### [facility] ([id number]) [address], [address] [place] [address] Cholesterol in HDL [Mass/Vol] 40 mg/dL Normal >39 [facility] Comment on above: Result Comment: HDL <40 mg/dL - High Risk HDL > or = 40mg/dL- Desirable HDL >60 mg/dL - Negative Risk Performed By: #### B JAMES RONDON, 1987-08, 81370-9 #### [facility] ([id number]) [address] [place] [address] 16410 #### 16360-6 #### [facility] ([id number]) [address], [address] [place] [address] Cholesterol in LDL [Mass/Vol] 57 mg/dL Normal <130 [facility] Comment on above: Result Comment: LDL <100 mg/dL - Desirable LDL >160 mg/dL - High Risk Performed By: #### JAMES Sanchez MP, 1987-08, 52730-8 #### [facility] ([id number]) [address] [place] [address] #### 67426-7 #### [facility] ([id number]) [address], [address] [place] [address] Cholesterol in VLDL [Mass/Vol] 38 mg/dL High 0-30 [facility] Comment on above: Performed By: #### B ALCON, CBCA, 1987-08, 14457-4 #### [facility] ([id number]) [address] [place] [address] 17179 #### 59703-5 #### [facility] ([id number]) [address] [facility], [address] [place] [address] CHOLESTEROL:HDL 3.4 Normal 1.0-5.0 [facility] Comment on above: Performed By: #### B ALCON, CBCA, 1987-08, 50876-2 #### [facility] ([id number]) [address] [place] [address] 65062 #### 35983-0 #### [facility] ([id number]) [address] [facility], [address] [place] [address] Triglyceride [Mass/Vol] 192 mg/dL High 27-150 [facility] Comment on above: Performed By: #### B ALCON, CBCA, 1987-08, 68882-8 #### [facility] ([id number]) [address] [place] [address] 21408 #### 12140-0 #### [facility] ([id number]) [address] [facility], [address] [place] [address] MAGNESIUMon 10-23-2023 Magnesium [Mass/Vol] 2.1 mg/dL Normal 1.8-2.6 [facility] Comment on above: Performed By: #### B ALCON, CBCA, 1987-08, 70356-8 #### [facility] ([id number]) [address] [place] [address] 56692 #### 02553-1 #### [facility] ([id number]) [address] [facility], [address] [place] [address] Natriuretic peptide.B melony silver N-Terminal IA [Mass/Vol]on 10-23-2023 Natriuretic peptide B (Bld) [Mass/Vol] 1528 pg/mL High <=88 [facility] Comment on above: Result Comment: NOTE [...] absence of renal failure. Test Performed by: [place] [address] Angle Furnaceman: Brittani Nieves Ph.D.; CLIA# [id number] Performed By: #### B JAMES RONDON, 1987-08, 68340-2 #### [facility] ([id number]) [address] [place] [address] 27331 #### 17006-8 #### [facility] ([id number]) [address] [place] [address], [address] [place] [address] Prostate specific Ag [Mass/V ol]on 10-23-2023 PSA SCREEN 1.65 ng/mL Normal 0.00-4.00 [facility] Comment on above: Result Comment: The method used for this test is [employer] Env[employer]ion DXI chemiluminescent immunoassay. Values obtained by different assay methods cannot be used interchangeably. Performed By: #### B JAMES RONDON, 1987-08, 37472-9 #### [facility] ([id number]) [address] [place] [address] 65238 #### 77962-7 #### [facility] ([id number]) [address] [address], [address] [place] [address] Vitamin D+Metabolites [Mass/ Vol]on 10-23-2023 VITAMIN D 25 HYD TOT 8.3 ng/mL Low 30-100 [facility] Comment on above: Result Comment: Vitamin D status 25 [place] Vitamin D Deficiency <20 ng/mL Insufficiency 20-29 ng/mL Sufficiency 30-100 ng/mL Toxicity >100 ng/mL NOTE: A pediatric reference range has not been established by the automated equipment engineer technician of this kit. The [place] [employer] recommends a Vitamin D level of = or >20ng/mL in infants and children. Performed By: #### B JAMES RONDON, 1987-08, 34823-7 #### [facility] ([id number]) [address] [place] [address] 89623 #### 54497-5 #### [facility] ([id number]) [address] [facility], [facility] [address] [place] [address] BLOOD UREA NITROGENon 2023 Urea nitrogen [Mass/Vol] 33 mg/dL High 5-27 [facility] Comment on above: Performed By: #### B JAMES RONDON, 1987-08, 76571-2 #### [facility] ([id number]) [address] [place] [address] 44936 #### 33242-4 #### [facility] ([id number]) [address] [facility], [facility] [address] [place] [address] CREATININEon 09-03-2023 Creatinine [Mass/Vol] 2.42 mg/dL High 0.70-1.20 [facility] Comment on above: Result Comment: METH OD TRACEABLE TO IDMS STANDARD Performed By: #### B JAMES RONDON, 1987-08, 51046-0 #### [facility] ([id number]) [address] [place] [address] 47115 #### 09506-9 #### [facility] ([id number]) [address] [facility], [address] [place] [address] GFR/1.73 sq M.predicted among non-blacks MDRD (S/P/Bld) [Vol rate/Area] 29 mL/min/{1.73_m2} Low >59 [facility] Comment on above: Result Comment: Reported eGFR is based on the CKD-EPI 2020 equation that does not use a race coefficient. Performed By: #### B JAMES RONDON, 1987-08, 38833-7 #### [facility] ([id number]) [address] [place] [address] 80878 #### 59704-0 #### [facility] ([id number]) [address], [address] [place] [address] ELECTROLYTESon 09-03-2023 Anion gap [Moles/Vol] 7 mmol/L Normal 5-15 [facility] Comment on above: Performed By: #### B JAMES RONDON, 1987-08, 67987-3 #### [facility] ([id number]) [address] [place] [address] 97835 #### 83416-9 #### [facility] ([id number]) [address] [facility], [address] [place] [address] Chloride [Moles/Vol] 106 mmol/L Normal 98-109 [facility] Comment on above: Performed By: #### B JAMES RONDON, 1987-08, 02643-0 #### [facility] ([id number]) [address] [place] [address] 06029 #### 77543-4 #### [facility] ([id number]) [address], [address] [place] [address] CO2 [Moles/Vol] 21 mmol/L Low 22-32 [facility] Comment on above: Performed By: #### B JAMES RONDON, 1987-08, 65536-1 #### [facility] ([id number]) [address] [place] [address] 86032 #### 38509-9 #### [facility] ([id number]) [address] [place] [address], [address] [place] [address] Potassium [Moles/Vol] 4.2 mmol/L Normal 3.5-5.0 [facility] Comment on above: Performed By: #### JAMES Sanchez MP, 1987-08, 89794-4 #### [facility] ([id number]) [address] [place] [address] 46571 #### 56736-2 #### [facility] ([id number]) [address] [address], [address] [place] [address] Sodium [Moles/Vol] 134 mmol/L Normal 134-146 [facility] Comment on above: Performed By: #### JAMES Sanchez MP, 1987-08, 62645-3 #### [facility] ([id number]) [address] [place] [address] 12515 #### 13895-3 #### [facility] ([id number]) [address] [address], [address] [place] [address] Natriuretic peptide.B prohor adrianne N-Terminal [Mass/Vol]on 09-03-2023 NT Pro BNP See Below Normal [facility] Comment on above: Result Comment: NOTE TEST RESULT FLAG UNIT REF.RANGE ----- PRO B Natr Peptide 933 H pg/mL <125 Test Performed By: [facility] [employer] [address] [place] [address] Senior Electrical Engineer: Charlotte Hart III #[id number] Performed By: #### JAMES Sanchez MP, 1987-08, 76312-5 #### [facility] ([id number]) [address] [place] [address] #### 16162-9 #### [facility] ([id number]) [address], [address] [place] [address] BLOOD UREA NITROGENon 2023 Urea nitrogen [Mass/Vol] 38 mg/dL High 5-27 [facility] Comment on above: Performed By: #### B JAMES RONDON, 1987-08, 62834-2 #### [facility] ([id number]) [address] [place] [address] #### 49419-9 #### [facility] ([id number]) [address], [address] [place] [address] CREATININEon 07-31-2023 Creatinine [Mass/Vol] 2.76 mg/dL High 0.70-1.20 [facility] Comment on above: Result Comment: METH OD TRACEABLE TO IDMS STANDARD Performed By: #### B JAMES RONDON, 1987-08, 78453-8 #### [facility] ([id number]) [address] [place] [address] #### 22223-1 #### [facility] ([id number]) [address], [address] [address] GFR/1.73 sq M.predicted among non-blacks MDRD (S/P/Bld) [Vol rate/Area] 25 mL/min/{1.73_m2} Low >59 [facility] Comment on above: Result Comment: Reported eGFR is based on the CKD-EPI 2020 equation that does not use a race coefficient. Performed By: #### JAMES Sanchez MP, 1987-08, 47166-3 #### [facility] ([id number]) [address] [place] [address] #### 38471-3 #### [facility] ([id number]) [address], [address] [place] [address] ELECTROLYTESon 07-31-2023 Anion gap [Moles/Vol] 7 mmol/L Normal 5-15 [facility] Comment on above: Performed By: #### JAMES Sanchez MP, 1987-08, #### [facility] ([id number]) [address] [place] [address] #### 86764-6 #### [facility] ([id number]) [address] [facility], [address] [place] [address] Chloride [Moles/Vol] 104 mmol/L Normal 98-109 [facility] Comment on above: Performed By: #### JAMES Sanchez MP, 1987-08, #### [facility] ([id number]) [address] [place] [address] #### 22148-0 #### [facility] ([id number]) [address] [facility], [address] [place] [address] CO2 [Moles/Vol] 21 mmol/L Low 22-32 [facility] Comment on above: Performed By: #### JAMES Sanchez MP, 1987-08, #### [facility] ([id number]) [address] [place] [address] #### 73264-2 #### [facility] ([id number]) [address] [facility], [address] [place] [address] Potassium [Moles/Vol] 4.3 mmol/L Normal 3.5-5.0 [facility] Comment on above: Performed By: #### JAMES Sanchez MP, 1987-08, #### [facility] ([id number]) [address] [place] [address] #### 20960-5 #### [facility] ([id number]) [address] [facility], [address] [place] [address] Sodium [Moles/Vol] 132 mmol/L Low 134-146 [facility] Comment on above: Performed By: #### JAMES Sanchez MP, 1987-08, 45830-3 #### [facility] ([id number]) [address] [place] [address] 079[address] #### 09943-8 #### [facility] ([id number]) 0 [facility] [address] [place] [address] Natriuretic peptide.B prohor adrianne N-Terminal [Mass/Vol]on 07-31-2023 NT Pro BNP See Below Normal [facility] Comment on above: Result Comment: NOTE TEST RESULT FLAG UNIT REF.RANGE ----- PRO B Natr Peptide 1296 H pg/mL <125 Test Performed By: [place] [address] Senior Electrical Engineer: Charlotte Hart III #[id number] Performed By: #### JAMES Sanchez MP, 1987-08, 16834-0 #### [facility] ([id number]) [address] [place] [address] 98074 #### 51253-9 #### [facility] ([id number]) [address] [place] [address] [address] [place] [address] BLOOD UREA NITROGENon 2023 Urea nitrogen [Mass/Vol] 34 mg/dL High 5-27 [facility] Comment on above: Performed By: #### JAMES Sanchez MP, 1987-08, 08470-6 #### [facility] ([id number]) [address] [place] [address] 47906 #### 14883-4 #### [facility] ([id number]) [address] [facility] [address] [place] [address] CREATININEon 07-02-2023 Creatinine [Mass/Vol] 3.13 mg/dL High 0.70-1.20 [facility] Comment on above: Result Comment: METH OD TRACEABLE TO IDMS STANDARD Performed By: #### B JAMES RONDON, 1987-08, 06822-1 #### [facility] ([id number]) [address] [place] [address] 27986 #### 96982-6 #### [facility] ([id number]) [address] [address] GFR/1.73 sq M.predicted among non-blacks MDRD (S/P/Bld) [Vol rate/Area] 22 mL/min/{1.73_m2} Low >59 [facility] Comment on above: Result Comment: Reported eGFR is based on the CKD-EPI 2020 equation that does not use a race coefficient. Performed By: #### B JAMES RONDON, 1987-08, 78124-1 #### [facility] ([id number]) [address] [place] [address] 51961 #### 18104-6 #### [facility] ([id number]) [address] [facility] [address] [place] [address] ELECTROLYTESon 07-02-2023 Anion gap [Moles/Vol] 8 mmol/L Normal 5-15 [facility] Comment on above: Performed By: #### JAMES Sanchez MP, 1987-08, 05491-7 #### [facility] ([id number]) [address] [place] [address] 56836 #### 51730-3 #### [facility] ([id number]) [address] [address] Chloride [Moles/Vol] 106 mmol/L Normal 98-109 [facility] Comment on above: Performed By: #### JAMES Sanchez MP, 1987-08, 61541-9 #### [facility] ([id number]) [address] [place] [address] 81363 #### 01247-2 #### [facility] ([id number]) [address], [address] [place] [address] CO2 [Moles/Vol] 20 mmol/L Low 22-32 [facility] Comment on above: Performed By: #### JAMES Sanchez MP, 1987-08, 54871-0 #### [facility] ([id number]) [address] [place] [address] 06172 #### 08945-3 #### [facility] ([id number]) [address] [facility], [address] [place] [address] Potassium [Moles/Vol] 4.7 mmol/L Normal 3.5-5.0 [facility] Comment on above: Performed By: #### JAMES Sanchez MP, 1987-08, 50573-0 #### [facility] ([id number]) [address] [place] [address] 05883 #### 73745-8 #### [facility] ([id number]) [address], [address] [place] [address] Sodium [Moles/Vol] 134 mmol/L Normal 134-146 [facility] Comment on above: Performed By: #### JAMES Sanchez MP, 1987-08, 47405-5 #### [facility] ([id number]) [address] [place] [address] 72763 #### 03309-6 #### [facility] ([id number]) [address] [place] [address] Natriuretic peptide.B prohor adrianne N-Terminal [Mass/Vol]on 07-02-2023 NT Pro BNP See Below Normal [facility] Comment on above: Result Comment: NOTE TEST RESULT FLAG UNIT REF.RANGE ----- PRO B Natr Peptide 413 H pg/mL <125 Test Performed By: [place] [address] Senior Electrical Engineer: Tyler Valle III, M.D. CLIA #[id number] Performed By: #### B JAMES RONDON, 1987-08, 72862-6 #### [facility] ([id number]) [address] [place] [address] 630[address] #### 00160-8 #### [facility] ([id number]) [address] [place] [address] [address] [place] [address] BLOOD UREA NITROGENon 2023 Urea nitrogen [Mass/Vol] 33 mg/dL High 5-27 [facility] Comment on above: Performed By: #### JAMES Sanchez MP, 1987-08, 63020-4 #### [facility] ([id number]) [address] [place] [address] 68170 #### 78481-0 #### [facility] ([id number]) [address] [place] [address] [address] [place] [address] CREATININEon 06-04-2023 Creatinine [Mass/Vol] 2.37 mg/dL High 0.70-1.20 [facility] Comment on above: Result Comment: METH OD TRACEABLE TO IDMS STANDARD Performed By: #### B JAMES RONDON, 1987-08, 62639-7 #### [facility] ([id number]) [address] [place] [address] #### 18891-4 #### [facility] ([id number]) [address], [address] [place] [address] GFR/1.73 sq M.predicted among non-blacks MDRD (S/P/Bld) [Vol rate/Area] 30 mL/min/{1.73_m2} Low >59 [facility] Comment on above: Result Comment: Reported eGFR is based on the CKD-EPI 2020 equation that does not use a race coefficient. Performed By: #### B JAMES RONDON, 1987-08, 93092-3 #### [facility] ([id number]) [address] [place] [address] 94668 #### 65239-1 #### [facility] ([id number]) [address], [address] [place] [address] ELECTROLYTESon 06-04-2023 Anion gap [Moles/Vol] 7 mmol/L Normal 5-15 [facility] Comment on above: Performed By: #### B JAMES RONDON, 1987-08, 34379-6 #### [facility] ([id number]) [address] [place] [address] 44316 #### 08585-6 #### [facility] ([id number]) [address], [address] [place] [address] Chloride [Moles/Vol] 106 mmol/L Normal 98-109 [facility] Comment on above: Performed By: #### JAMES Sanchez MP, 1987-08, 85247-6 #### [facility] ([id number]) [address] [place] [address] 91409 #### 31253-5 #### [facility] ([id number]) [address], [address] [place] [address] CO2 [Moles/Vol] 20 mmol/L Low 22-32 [facility] Comment on above: Performed By: #### B ALCON CBCA, 1987-08, 58646-7 #### [facility] ([id number]) [address] [place] [address] 05440 #### 80813-6 #### [facility] ([id number]) [address] [facility], [address] [place] [address] Potassium [Moles/Vol] 4.6 mmol/L Normal 3.5-5.0 [facility] Comment on above: Performed By: #### B ALCON, CBCA, 1987-08, 08390-2 #### [facility] ([id number]) [address] [place] [address] 99140 #### 04236-5 #### [facility] ([id number]) [address] [facility], [address] [place] [address] Sodium [Moles/Vol] 133 mmol/L Low 134-146 [facility] Comment on above: Performed By: #### Laura RONDON CBCA, 1987-08, 80694-1 #### [facility] ([id number]) [address] [place] [address] 85011 #### 32478-6 #### [facility] ([id number]) [address] [facility], [address] [place] [address] Natriuretic peptide.B prohor adrianne N-Terminal [Mass/Vol]on 06-04-2023 NT Pro BNP See Below Normal [facility] Comment on above: Result Comment: NOTE TEST RESULT FLAG UNIT REF.RANGE ----- PRO B Natr Peptide 526 H pg/mL <125 Test Performed By: [facility] [address] [place] [address] Senior Electrical Engineer: Tyler Valle III, M.D. CLIA #[id number] Performed By: #### B MP, CBCA, 1987-, #### [facility] ([id number]) [address] [facility], [place] [address] #### 54006-7 #### [facility] ([id number]) [address] [place] [address], [address] [place] [address] Cult,Urineon 06-03-2023 Cult,Urine Specimen Description .VOIDED URINE [...] Tobramycin 4 SUSCEPTIBLE Trimethoprim/Sulfa >=320 RESISTANT Resistant [facility] Comment on above: Performed By: #### U RC #### [address] [id number] Angle Furnaceman: Griffin Carrion MD [facility] [address] [place] [address] Angle Furnaceman: Jameson Aaron MD UA w/Reflex Cultureon 2023 Bilirubin, SemiQt,Ur Negative Normal NEG [facility] Comment on above: Performed By: #### U AXCOURTNEY #### [facility] [address] [place] [address] Angle Furnaceman: Jameson Aaron MD Blood, Urine TRACE Abnormal NEG [facility] Comment on above: Performed By: #### U AXLORIO #### [facility] [address] [place], [place] 80[address] Angle Furnaceman: Jameson Aaron MD Clarity (U) SLIGHTLY CLOUDY Abnormal CLEAR [facility] Comment on above: Performed By: #### U AX, UMICAO #### [facility] [address] [place], [place] 379[address] Angle Furnaceman: Jameson Aaron MD Color (U) Yellow Normal YEL [facility] Comment on above: Performed By: #### U AX, UMICAO #### [facility] [address] [place], [place] 2458483 Angle Furnaceman: Jameson Aaron MD Glucose Ql (U) 3+ mg/dL Abnormal NEG [facility] Comment on above: Performed By: #### U AX, UMICAO #### [facility] [address] [place], [place] 7548[address] Angle Furnaceman: Jameson Aaron MD Ketones Ql (U) Negative Normal NEG [facility] Comment on above: Performed By: #### U AX, UMICAO #### [facility] [address] [place] [address] Angle Furnaceman: Jameson Aaron MD Leukocyte esterase Test strip Ql (U) TRACE Abnormal NEG [facility] Comment on above: Performed By: #### U AX, UMICAO #### [facility] [address] [place], [place] 825[address]83 Angle Furnaceman: Jameson Araon MD Nitrite,Ur Negative Normal NEG [facility] Comment on above: Performed By: #### U AX, UMICAO #### [facility] [address] [place], [place] 3353283 Angle Furnaceman: Jameson Aaron MD PH,Ur 5.5 Normal 5.0-9.0 [facility] Comment on above: Performed By: #### U AX, UMICAO #### [facility] [address] [place], [place] 1788383 Angle Furnaceman: Jameson Aaron MD Protein Ql (U) 2+ mg/dL Abnormal NEG [facility] Comment on above: Performed By: #### U AX, UMICAO #### [facility] [address] [place], [place] 67[address]83 Angle Furnaceman: Jameson Aaron MD Spec. [place],Ur 1.025 High 1.010-1.020 [facility] Comment on above: Performed By: #### U AX, UMICAO #### [facility] [address] [place], [place] 887[address]83 Angle Furnaceman: Jameson Aaron MD Urobilinogen,Ur Normal Normal 0.0-1.0 [facility] Comment on above: Performed By: #### U AX, UMICAO #### [facility] [address] [place] [address] Dr[place], [place] 265[address]83 Angle Furnaceman: Jameson Aaron MD Urinalysis,Microon 4 Bacteria 2+ Abnormal NONE [facility] Comment on above: Performed By: #### U AX, UMICAO #### [address] [place], [place] [address]883 Angle Furnaceman: Jameson Aaron MD Epithelial cells LM Ql (Urine sed) 0 TO 2 Normal 0-5 [facility] Comment on above: Performed By: #### U AX, UMICAO #### [facility] [address] [place], [place] 9[address]83 Angle Furnaceman: Jameson Aaron MD Epithelial, Renal 0 TO 2 Normal 0 [facility] Comment on above: Performed By: #### U AX, UMICAO #### [facility] [address] [place], [place] 0673083 Angle Furnaceman: Jameson Aaron MD Urine RBC's 0 TO 2 Normal 0-2 [facility] Comment on above: Performed By: #### U AX, UMICAO #### [facility] [address] [place] [address] Angle Furnaceman: Jameson Aaron MD Urine WBC's 10 TO 20 Normal 0-5 [facility] Comment on above: Performed By: #### U AX, UMICAO #### [facility] [address] [place] [address] Angle Furnaceman: Jameson Aaron MD Yeast PRESENCE NOTED Abnormal NONE [facility] Comment on above: Performed By: #### U AX, UMICAO #### [facility] [address] [place] [address] Angle Furnaceman: Jameson Aaron MD BLOOD UREA NITROGENon 2023 Urea nitrogen [Mass/Vol] 44 mg/dL High 5-27 [facility] Comment on above: Performed By: #### E LEC, 3094-0, FACILITY MAINTENANCE SUPERVISOR, 60726-3 #### [facility] ([id number]) [address] [place] [address] 46340 #### 51053-8, HA1C #### [facility] ([id number]) [address], [address] [place] [address] CREATININEon 05-06-2023 Creatinine [Mass/Vol] 2.71 mg/dL High 0.70-1.20 [facility] Comment on above: Result Comment: METH OD TRACEABLE TO IDMS STANDARD Performed By: #### E LEC, 3094-0, FACILITY MAINTENANCE SUPERVISOR, 68184-4 #### [facility] ([id number]) [address] [place] [address] 41471 #### 43856-5, HA1C #### [facility] ([id number]) [address] [facility], [address] [place] [address] GFR/1.73 sq M.predicted among non-blacks MDRD (S/P/Bld) [Vol rate/Area] 26 mL/min/{1.73_m2} Low >59 [facility] Comment on above: Result Comment: Reported eGFR is based on the CKD-EPI 2020 equation that does not use a race coefficient. Performed By: #### E LEC, 3094-0, FACILITY MAINTENANCE SUPERVISOR, 15469-4 #### [facility] ([id number]) [address] [place] [address] 47530 #### 52040-1, HA1C #### [facility] ([id number]) [address], [address] [place] [address] ELECTROLYTESon 05-06-2023 Anion gap [Moles/Vol] 11 mmol/L Normal 5-15 [facility] Comment on above: Performed By: #### E LEC, 309-0, FACILITY MAINTENANCE SUPERVISOR, 60334-6 #### [facility] ([id number]) [address] [place] [address] 78655 #### 35173-1, HA1C #### [facility] ([id number]) [address], [address] [place] [address] Chloride [Moles/Vol] 101 mmol/L Normal 98-109 [facility] Comment on above: Performed By: #### E LEC, 3094-0, FACILITY MAINTENANCE SUPERVISOR, 18613-8 #### [facility] ([id number]) [address] [place] [address] 41785 #### 09398-5, HA1C #### [facility] ([id number]) [address], [address] [place] [address] CO2 [Moles/Vol] 18 mmol/L Low 22-32 [facility] Comment on above: Performed By: #### E LEC, 3094-0, FACILITY MAINTENANCE SUPERVISOR, 67520-5 #### [facility] ([id number]) [address] [place] [address] 36646 #### 69060-8, HA1C #### [facility] ([id number]) [address] [facility], [address] [place] [address] Potassium [Moles/Vol] 4.4 mmol/L Normal 3.5-5.0 [facility] Comment on above: Performed By: #### E LEC, 3094-0, FACILITY MAINTENANCE SUPERVISOR, 28096-0 #### [facility] ([id number]) [address] [place] [address] 67069 #### 94862-8, HA1C #### [facility] ([id number]) [address] [place] [address], [address] [place] [address] Sodium [Moles/Vol] 130 mmol/L Low 134-146 [facility] Comment on above: Performed By: #### E LEC, 3094-0, FACILITY MAINTENANCE SUPERVISOR, 79129-5 #### [facility] ([id number]) [address] [place] [address] 56934 #### 44520-0, HA1C #### [facility] ([id number]) [address] [address], [address] [place] [address] HGB A1C (GLYCO-HGB)on 2023 Glucose [Mass/Vol] 260 mg/dL Normal [facility] Comment on above: Performed By: #### B MP, CBCA, 1987-08, 40246-4 #### [facility] ([id number]) [address] [place] [address] 67117 #### 01928-5 #### [facility] ([id number]) [address] [place] [address], [address] [place] [address] HbA1c (Bld) [Mass fraction] 10.7 % High 4.4-5.6 [facility] Comment on above: Result Comment: NOTE ADA Guidelines Result HgbA1c Normal : less than 5.7 % Prediabetes : 5.7 % to 6.4 % Diabetes : > 6.4 % Use with caution in patients with abnormal hemoglobin variants as the half-life of red blood cells and in vivo glycation rates are affected. Performed By: #### B MP, CBCA, 1987-08, 89445-2 #### [facility] ([id number]) [address] [place] [address] 63555 #### 17609-5 #### [facility] ([id number]) [address] [facility], [address] [place] [address] Lipid 1996 panelon 4 Cholesterol [Mass/Vol] 205 mg/dL High 150-200 [facility] Comment on above: Performed By: #### Tiki LEC, 3094-0, FACILITY MAINTENANCE SUPERVISOR, 55966-3 #### [facility] ([id number]) [address] [place] [address] 07817 #### 75290-1, HA1C #### [facility] ([id number]) [address] [facility], [address] [place] [address] Cholesterol in HDL [Mass/Vol] 35 mg/dL Low >39 [facility] Comment on above: Result Comment: HDL <40 mg/dL - High Risk HDL > or = 40mg/dL- Desirable HDL >60 mg/dL - Negative Risk Performed By: #### Tiki LEC, 3094-0, FACILITY MAINTENANCE SUPERVISOR, 21220-5 #### [facility] ([id number]) [address] [place] [address] 77108 #### 30430-7, HA1C #### [facility] ([id number]) [address] [facility], [address] [place] [address] Cholesterol in LDL [Mass/Vol] 120 mg/dL Normal <130 [facility] Comment on above: Result Comment: LDL <100 mg/dL - Desirable LDL >160 mg/dL - High Risk Performed By: #### E LEC, 3094-0, FACILITY MAINTENANCE SUPERVISOR, 15617-3 #### [facility] ([id number]) [address] [place] [address] 60032 #### 16911-6, HA1C #### [facility] ([id number]) [address] [place] [address], [address] [address] Cholesterol in VLDL [Mass/Vol] 50 mg/dL High 0-30 [facility] Comment on above: Performed By: #### E LEC, 3094-0, FACILITY MAINTENANCE SUPERVISOR, 11233-0 #### [facility] ([id number]) [address] [place] [address] 26858 #### 68899-2, HA1C #### [facility] ([id number]) [address] [place] [address], [address] [address] CHOLESTEROL:HDL 5.9 High 1.0-5.0 [facility] Comment on above: Performed By: #### E LEC, 3094-0, FACILITY MAINTENANCE SUPERVISOR, 97907-5 #### [facility] ([id number]) [address] [place] [address] 89582 #### 92478-9, HA1C #### [facility] ([id number]) [address] [place] [address], [address] [place] [address] Triglyceride [Mass/Vol] 248 mg/dL High 27-150 [facility] Comment on above: Performed By: #### E LEC, 3094-0, FACILITY MAINTENANCE SUPERVISOR, 60569-4 #### [facility] ([id number]) [address] [place] [address] 80887 #### 27861-3, HA1C #### [facility] ([id number]) [address], [address] [place] [address] MICROALBUMIN - ALBUMIN:CREAT ININE URINE RATIOon 05-06-2023 ALB/CREAT RATIO 2747.0 mg/g creat High 0.0-30.0 Pr [facility] Comment on above: Performed By: #### B JAMES RONDON, 1987-08, 76889-0 #### [facility] ([id number]) [address] [place] [address] 71683 #### 92041-3 #### [facility] ([id number]) [address], [address] [place] [address] Albumin DL <= 20 mg/L (U) [Mass/Vol] 195.2 mg/dL High 0.0-1.9 [facility] Comment on above: Performed By: #### JAMES Sanchez MP, 1987-08, 25144-2 #### [facility] ([id number]) [address] [place] [address] 32468 #### 97779-1 #### [facility] ([id number]) [address], [address] [place] [address] URINE CREAT 71.06 mg/dL Normal [facility] Comment on above: Performed By: #### JAMES Sanchez MP, 1987-08, 07079-4 #### [facility] ([id number]) [address] [place] [address] 19002 #### 18158-5 #### [facility] ([id number]) [address], [address] [place] [address] Natriuretic peptide.B prohor adrianne N-Terminal [Mass/Vol]on 05-06-2023 NT Pro BNP See Below Normal [facility] Comment on above: Result Comment: NOTE TEST RESULT FLAG UNIT REF.RANGE ----- PRO B Natr Peptide 314 H pg/mL <125 Test Performed By: [place] [address] Senior Electrical Engineer: Tyler aVlle III, M.D. CLIA #[id number] Performed By: #### B MP, CBCA, 1987-08, 37201-9 #### [facility] ([id number]) [address] [place] [address] 12493 #### 69961-5 #### [facility] ([id number]) [address] [place] [address], [address] [place] [address] URINALYSISon 05-06-2023 Bilirubin Ql (U) Negative Normal NEG [facility] Comment on above: Performed By: #### U A #### [facility] ([id number]) [address] [place] [address] BLOOD/HGB Trace Abnormal NEG [facility] Comment on above: Performed By: #### U A #### [facility] ([id number]) [address] [place] [address] Color (U) YELLOW Normal YELLOW [facility] Comment on above: Performed By: #### U A #### [facility] ([id number]) [address] [place] [address] Glucose Ql (U) >1000 Abnormal NEG [facility] Comment on above: Performed By: #### U A #### [facility] ([id number]) [address] [place] [address] Ketones Ql (U) Negative Normal NEG [facility] Comment on above: Performed By: #### U A #### [facility] ([id number]) [address] [place] [address] 584[address] Leukocyte esterase Test strip Ql (U) Negative Normal NEG [facility] Comment on above: Result Comment: HIGH CONCENTRATIONS OF GLUCOSE MAY DECREASE THE REACTIVITY OF THE DIPSTICK LEUKOCYTE TEST PAD. Performed By: #### U A #### [facility] ([id number]) [address] [place] [address] MUCOUS PRESENT Abnormal NONE [facility] Comment on above: Performed By: #### U A #### [facility] ([id number]) [address] [place] [address] 78[address] Nitrite Ql (U) Positive Abnormal NEG [facility] Comment on above: Performed By: #### U A #### [facility] ([id number]) [address] [place] [address] pH (U) 6.0 [pH] Normal 5.0-8.5 [facility] Comment on above: Performed By: #### U A #### [facility] ([id number]) [address] [place] [address] [id number] Protein Ql (U) >300 Abnormal NEG [facility] Comment on above: Performed By: #### U A #### [facility] ([id number]) [address] [place] [address] 23569 R.B.CELLS 5 /hpf Normal 0-5 [facility] Comment on above: Performed By: #### U A #### [facility] ([id number]) [address] [place] [address] 70254 Specific gravity (U) [Rel density] 1.015 Normal 1.003-1.035 [facility] Comment on above: Performed By: #### U A #### [facility] ([id number]) [address] [place] [address] [id number] SQUAMOUS EPITHELIUM 4 /hpf Normal 0-5 [facility] Comment on above: Performed By: #### U A #### [facility] ([id number]) [address] [place] [address] [id number] TURBIDITY HAZY Abnormal CLEAR [facility] Comment on above: Performed By: #### U A #### [facility] ([id number]) [address] [place] [address] [id number] Urobilinogen Qn (U) 0.2 {Chaya'U}/dL Normal <1.1 [facility] Comment on above: Performed By: #### U A #### [facility] ([id number]) [address] [place] [address] [id number] W.B.CELLS >100 High 0-5 [facility] Comment on above: Performed By: #### U A #### [facility] ([id number]) [address] [place] [address] [id number] URINE CULTUREon 05-06-2023 Bacteria identified Cx Nom (U) SPECIMEN NOTES URINE RECEIVED WITHOUT PRESERVATIVE CULTURE RESULTS MULTIPLE SPECIES PRESENT. PROBABLE COLLECTION CONTAMINATION. SUGGEST REPEAT SPECIMEN. URINE RECEIVED WITHOUT PRESERVATIVE-DELAYS IN TRANSPORT MAY AFFECT RESULTS.INTERPRET WITH CAUTION AND CLINICAL CORRELATION IS RECOMMENDED. Normal [facility] Comment on above: Performed By: #### B ALCON CBCA, 1987-, 98946-6 #### [facility] ([id number]) [address] [place] [address] 78434 #### 24357-1 #### [facility] ([id number]) [address] [facility], [address] [place] [address] BASIC METABOLIC PANLon 04-19 Anion gap [Moles/Vol] 6 mmol/L Normal 5-15 [facility] Comment on above: Performed By: #### B ALCON CBCA, 1987-08, 24785-5 #### [facility] ([id number]) [address] [place] [address] 29855 #### 50986-5 #### [facility] ([id number]) [address], [address] [place] [address] Calcium [Mass/Vol] 8.6 mg/dL Normal 8.5-10.5 [facility] Comment on above: Performed By: #### B MP, CBCA, 1987-08, 99077-8 #### [facility] ([id number]) [address] [place] [address] 84209 #### 04365-4 #### [facility] ([id number]) [address], [address] [place] [address] Chloride [Moles/Vol] 101 mmol/L Normal 98-109 [facility] Comment on above: Performed By: #### B ALCON, CBCA, 1987-08, 77493-9 #### [facility] ([id number]) [address] [place] [address] 61430 #### 74285-9 #### [facility] ([id number]) [address], [address] [place] [address] CO2 [Moles/Vol] 19 mmol/L Low 22-32 [facility] Comment on above: Performed By: #### B MP, CBCA, 1987-08, 80707-9 #### [facility] ([id number]) [address] [place] [address] 01960 #### 94787-1 #### [facility] ([id number]) [address], [address] [place] [address] Creatinine [Mass/Vol] 2.57 mg/dL High 0.70-1.20 [facility] Comment on above: Result Comment: METH OD TRACEABLE TO IDMS STANDARD Performed By: #### B JAMES RONDON, 1987-08, 56261-9 #### [facility] ([id number]) [address] [place] [address] 49916 #### 46430-5 #### [facility] ([id number]) [address], [address] [place] [address] GFR/1.73 sq M.predicted among non-blacks MDRD (S/P/Bld) [Vol rate/Area] 27 mL/min/{1.73_m2} Low >59 [facility] Comment on above: Result Comment: Reported eGFR is based on the CKD-EPI 2020 equation that does not use a race coefficient. Performed By: #### B JAMES RONDON, 1987-08, 06849-1 #### [facility] ([id number]) [address] [place] [address] 96256 #### 41816-0 #### [facility] ([id number]) [address], [address] [place] [address] Glucose [Mass/Vol] 377 mg/dL High 65-99 [facility] Comment on above: Performed By: #### JAMES Sanchez MP, 1987-08, 00755-5 #### [facility] ([id number]) [address] [place] [address] 12546 #### 35387-4 #### [facility] ([id number]) [address], [address] [place] [address] Potassium [Moles/Vol] 4.2 mmol/L Normal 3.5-5.0 [facility] Comment on above: Performed By: #### JAMES Sanchez MP, 1987-08, 95917-0 #### [facility] ([id number]) [address] [place] [address] 72817 #### 27319-8 #### [facility] ([id number]) [address] [facility], [address] [place] [address] Sodium [Moles/Vol] 126 mmol/L Low 134-146 [facility] Comment on above: Performed By: #### B ALCON, CBCA, 1987-08, 21719-9 #### [facility] ([id number]) [address] [place] [address] 56695 #### 87633-9 #### [facility] ([id number]) [address] [facility], [address] [place] [address] Urea nitrogen [Mass/Vol] 30 mg/dL High 5-27 [facility] Comment on above: Performed By: #### B ALCON CBCA, 1987-08, 63398-4 #### [facility] ([id number]) [address] [place] [address] 62480 #### 57655-3 #### [facility] ([id number]) [address] [facility], [address] [place] [address] CBC AND AUTO DIFFon 04-19- 23 ABSOLUTE BASOPHIL 0.1 X10E9/L Normal 0.0-0.2 [facility] Comment on above: Performed By: #### B ALCON CBCA, 1987-08, 26006-8 #### [facility] ([id number]) [address] [place] [address] 28801 #### 40483-9 #### [facility] ([id number]) [address] [facility], [address] [place] [address] ABSOLUTE NEUTROPHIL 8.8 X10E9/L High 1.5-6.6 [facility] Comment on above: Performed By: #### B ALCON, CBCA, 1987-08, 72995-3 #### [facility] ([id number]) [address] [place] [address] 88637 #### 36692-7 #### [facility] ([id number]) [address], [address] [place] [address] Basophils/100 WBC (Bld) 0.5 % Normal [facility] Comment on above: Performed By: #### B MP, CBCA, 1987-08, 54752-3 #### [facility] ([id number]) [address] [place] [address] 26707 #### 51610-4 #### [facility] ([id number]) [address] [facility], [address] [place] [address] Eosinophils (Bld) [#/Vol] 0.3 10*3/uL Normal 0.0-0.4 [facility] Comment on above: Performed By: #### B ALCON, CBCA, 1987-08, #### [facility] ([id number]) [address] [place] [address] 18374 #### 61898-2 #### [facility] ([id number]) [address] [facility], [address] [place] [address] Eosinophils/100 WBC (Bld) 2.6 % Normal [facility] Comment on above: Performed By: #### Laura RONDON, CBCA, 1987-08, #### [facility] ([id number]) [address] [place] [address] 44342 #### 85253-4 #### [facility] ([id number]) [address], [address] [place] [address] Erythrocyte distribution width (RBC) [Ratio] 15.5 % High 11.5-15.0 [facility] Comment on above: Performed By: #### Laura MP, CBCA, 1987-08, 31388-4 #### [facility] ([id number]) [address] [place] [address] 14120 #### 85763-2 #### [facility] ([id number]) [address], [address] [place] [address] Hematocrit (Bld) [Volume fraction] 36.8 % Low 39-49 [facility] Comment on above: Performed By: #### B ALCON, CBCA, 1987-08, 68595-3 #### [facility] ([id number]) [address] [place] [address] 88697 #### 72041-4 #### [facility] ([id number]) [address], [address] [place] [address] Hemoglobin (Bld) [Mass/Vol] 12.0 g/dL Low 13.0-17.0 [facility] Comment on above: Performed By: #### B ALCON, CBCA, 1987-08, 14985-8 #### [facility] ([id number]) [address] [place] [address] 07971 #### 02813-8 #### [facility] ([id number]) [address], [address] [place] [address] Lymphocytes (Bld) [#/Vol] 1.9 10*3/uL Normal 1.0-3.5 [facility] Comment on above: Performed By: #### B ALCON, CBCA, 1987-08, 44430-5 #### [facility] ([id number]) [address] [place] [address] 56561 #### 76350-0 #### [facility] ([id number]) [address], [address] [place] [address] Lymphocytes/100 WBC (Bld) 15.1 % Normal [facility] Comment on above: Performed By: #### B ALCON, CBCA, 1987-08, #### [facility] ([id number]) [address] [place] [address] 12083 #### 16071-5 #### [facility] ([id number]) [address] [address], [address] [place] [address] MCH (RBC) [Entitic mass] 28.2 pg Normal 27-34 [facility] Comment on above: Performed By: #### Laura RONDON CBCA, 1987-08, 35060-9 #### [facility] ([id number]) [address] [place] [address] 21241 #### 86975-7 #### [facility] ([id number]) [address] [place] [address], [address] [place] [address] MCHC (RBC) [Mass/Vol] 32.7 g/dL Normal 32-36 [facility] Comment on above: Performed By: #### Laura RONDON CBCA, 1987-08, #### [facility] ([id number]) [address] [place] [address] 75670 #### 95698-8 #### [facility] ([id number]) [address] [place] [address], [address] [place] [address] MCV (RBC) [Entitic vol] 86 fL Normal 80-100 [facility] Comment on above: Performed By: #### Laura RONDON CBCA, 1987-08, 25202-4 #### [facility] ([id number]) [address] [place] [address] 52461 #### 63647-0 #### [facility] ([id number]) [address] [place] [address], [address] [place] [address] Monocytes (Bld) [#/Vol] 1.4 10*3/uL High 0-0.9 [facility] Comment on above: Performed By: #### Laura RONDON, CBCA, 1987-08, 48196-7 #### [facility] ([id number]) [address] [place] [address] 55562 #### 74929-9 #### [facility] ([id number]) [address] [facility], [address] [place] [address] Monocytes/100 WBC (Bld) 11.2 % Normal [facility] Comment on above: Performed By: #### Laura RONDON, CBCA, 1987-08, 52524-9 #### [facility] ([id number]) [address] [place] [address] 13959 #### 84839-1 #### [facility] ([id number]) [address] [facility], [address] [place] [address] Neutrophils/100 WBC (Bld) 70.6 % Normal [facility] Comment on above: Performed By: #### Laura RONDON, CBCA, 1987-08, 16934-8 #### [facility] ([id number]) [address] [place] [address] 63664 #### 92482-8 #### [facility] ([id number]) [address] [facility], [address] [place] [address] Platelet mean volume (Bld) [Entitic vol] 7.6 fL Normal 7-12 [facility] Comment on above: Performed By: #### Laura RONDON, CBCA, 1987-08, 83581-3 #### [facility] ([id number]) [address] [place] [address] 33200 #### 79841-5 #### [facility] ([id number]) [address] [facility], [address] [place] [address] Platelets (Bld) [#/Vol] 325 10*3/uL Normal 150-450 [facility] Comment on above: Performed By: #### Laura MP, CBCA, 1987-08, 38852-2 #### [facility] ([id number]) [address] [place] [address] 86311 #### 27943-4 #### [facility] ([id number]) [address], [address] [place] [address] RBC COUNT 4.27 X10E12/L Normal 4.10-5.70 [facility] Comment on above: Performed By: #### B ALCON, CBCA, 1987-08, 19269-2 #### [facility] ([id number]) [address] [place] [address] 76290 #### 99735-0 #### [facility] ([id number]) [address] [facility], [address] [place] [address] WBC (Bld) [#/Vol] 12.5 10*3/uL High 4.0-11.0 [facility] Comment on above: Performed By: #### Laura RONDON, CBCA, 1987-08, 54691-7 #### [facility] ([id number]) [address] [place] [address] 33238 #### 37137-5 #### [facility] ([id number]) [address], [address] [place] [address] CRP [Mass/Vol]on 04-19-2023 C REACTIVE PROTEIN 7.8 mg/dL High 0.000-0.744 [facility] Comment on above: Performed By: #### B ALCON, CBCA, 1987-08, 68276-2 #### [facility] ([id number]) [address] [place] [address] 40816 #### 96529-6 #### [facility] ([id number]) [address], [address] [place] [address] ESR Photometric method (Bld) [Velocity]on 04-19-2023 ESR, ERYTHROCYTE SEDIMENTATION RATE 115 mm/h High 0-20 [facility] Comment on above: Performed By: #### B ALCON, CBCA, 1987-08, 72012-3 #### [facility] ([id number]) [address] [place] [address] 22851 #### 52752-1 #### [facility] ([id number]) [address] [facility], [address] [place] [address] Natriuretic peptide.B prohor adrianne N-Terminal [Mass/Vol]on 04-19-2023 NT Pro BNP See Below Normal [facility] Comment on above: Result Comment: NOTE TEST RESULT FLAG UNIT REF.RANGE ----- PRO B Natr Peptide 587 H pg/mL <125 Test Performed By: [facility] [address] [place] [address] Senior Electrical Engineer: Charlotte Hart III #[id number] Performed By: #### B ALCON, CBCA, 1987-08, 44451-1 #### [facility] ([id number]) [address] [place] [address] 15245 #### 62988-3 #### [facility] ([id number]) [address] [facility], [address] [place] [address] Basic Metabolic Profon 02-27 Anion gap [Moles/Vol] 11 mmol/L Normal - [facility] Comment on above: Performed By: #### S ED, CRP, BMP, CDP #### [facility] [address] [place] [address] Angle Furnaceman: Jameson Aaron MD BUN/CRE Ratio 16 Normal 01-16 [facility] Comment on above: Performed By: #### S ED, CRP, BMP, CDP #### [facility] [address] [place], [place] [id number] Angle Furnaceman: Jameson Aaron MD Calcium [Mass/Vol] 9.4 mg/dL Normal 8.6-10.4 [facility] Comment on above: Performed By: #### S ED, CRP, BMP, CDP #### [facility] [address] [place], [facility] Angle Furnaceman: Jameson Aaron MD Chloride [Moles/Vol] 98 mmol/L Normal 98-107 [facility] Comment on above: Performed By: #### S ED, CRP, BMP, CDP #### [facility] [address] [place], [facility] Angle Furnaceman: Jameson Aaron MD CO2 [Moles/Vol] 18 mmol/L Low 20-31 [facility] Comment on above: Performed By: #### S ED, CRP, BMP, CDP #### [facility] [address] [place], [facility]83 Angle Furnaceman: Jameson Aaron MD Creatinine [Mass/Vol] 2.7 mg/dL High 0.7-1.2 [facility] Comment on above: Performed By: #### S ED, CRP, BMP, CDP #### [facility] [address] [place], [facility]83 Angle Furnaceman: Jameson Aaron MD GFR/1.73 sq M.predicted among non-blacks MDRD (S/P/Bld) [Vol rate/Area] 26 mL/min/{1.73_m2} Low >60 [facility] Comment on above: Result Comment: [...] S ED, CRP, BMP, CDP #### [facility] [address] [place], [place] [address]128[address] Angle Furnaceman: Jameson Aaron MD Glucose [Mass/Vol] 268 mg/dL High 70-99 [facility] Comment on above: Performed By: #### S ED, CRP, BMP, CDP #### [facility] [address] [place], [place] 6[address] Angle Furnaceman: Jameson Aaron MD Potassium [Moles/Vol] 5.2 mmol/L Normal 3.7-5.3 [facility] Comment on above: Performed By: #### S ED, CRP, BMP, CDP #### [facility] [address] [place] [address] Angle Furnaceman: Jameson Aaron MD Sodium [Moles/Vol] 127 mmol/L Low 135-144 [facility] Comment on above: Performed By: #### S ED, CRP, BMP, CDP #### [facility] [address] [place] [address] Dr[place], [place] [address] Angle Furnaceman: Jameson Aaron MD Urea nitrogen [Mass/Vol] 44 mg/dL High 8-23 [facility] Comment on above: Performed By: #### S ED, CRP, BMP, CDP #### [facility] [address] [place] [address] Angle Furnaceman: Jameson Aaron MD C-Reactive Proteinon 023 CRP [Mass/Vol] 131.1 mg/L High 0.0-5.0 [facility] Comment on above: Performed By: #### S ED, CRP, BMP, CDP #### [facility] [address] [place], [place] 63[address] Angle Furnaceman: Jameson Aaron MD CBC with Diffon 02-27-2023 Abs. Basophil 0.06 k/uL Normal 0.00-0.20 [facility] Comment on above: Performed By: #### S ED, CRP, BMP, CDP #### [facility] [address] [place], [place] [address] Angle Furnaceman: Jameson Aaron MD Abs.Imm.Granulocyte 0.11 k/uL Normal 0.00-0.30 [facility] Comment on above: Performed By: #### S ED, CRP, BMP, CDP #### [address] [place], [place] [address] Angle Furnaceman: Jameson Aaron MD Abs.Neutrophil (Seg) 6.83 k/uL Normal 1.50-8.10 [facility] Comment on above: Performed By: #### S ED, CRP, BMP, CDP #### [address] [place] [address] Angle Furnaceman: Jameson Aaron MD Basophils/100 WBC (Bld) 1 % Normal 0-2 [facility] Comment on above: Performed By: #### S ED, CRP, BMP, CDP #### [address] [place], [place] [address] Angle Furnaceman: Jameson Aaron MD Eosinophils (Bld) [#/Vol] 0.22 10*3/uL Normal 0.00-0.44 [facility] Comment on above: Performed By: #### S ED, CRP, BMP, CDP #### [address] [place], [place] [address] Angle Furnaceman: Jameson Aaron MD Eosinophils/100 WBC (Bld) 2 % Normal 1-4 [facility] Comment on above: Performed By: #### S ED, CRP, BMP, CDP #### [address] [place], [place] [address] Angle Furnaceman: Jameson Aaron MD Erythrocyte distribution width (RBC) [Ratio] 14.6 % High 11.8-14.4 [facility] Comment on above: Performed By: #### S ED, CRP, BMP, CDP #### [facility] [address] [place], [place] [id number] Angle Furnaceman: Jameson Aaron MD Hematocrit (Bld) [Volume fraction] 41.9 % Normal 40.7-50.3 [facility] Comment on above: Performed By: #### S ED, CRP, BMP, CDP #### [facility] [address] [place], [facility]83 Angle Furnaceman: Jameson Aaron MD Hemoglobin (Bld) [Mass/Vol] 13.2 g/dL Normal 13.0-17.0 [facility] Comment on above: Performed By: #### S ED, CRP, BMP, CDP #### [address] [place], [place] [address]83 Angle Furnaceman: Jameson Aaron MD Immature granulocytes/100 WBC (Bld) 1 % High 0 [facility] Comment on above: Performed By: #### S ED, CRP, BMP, CDP #### [address] [place], [place] [address] Angle Furnaceman: Jameson Aaron MD Lymphocytes (Bld) [#/Vol] 1.83 10*3/uL Normal 1.10-3.70 [facility] Comment on above: Performed By: #### S ED, CRP, BMP, CDP #### [address] [place], [facility]83 Angle Furnaceman: Jameson Aaron MD Lymphocytes/100 WBC (Bld) 18 % Low 24-43 [facility] Comment on above: Performed By: #### S ED, CRP, BMP, CDP #### [facility] [address] [place], [place] [address] Angle Furnaceman: Jameson Aaron MD MCH (RBC) [Entitic mass] 28.2 pg Normal 25.2-33.5 [facility] Comment on above: Performed By: #### S ED, CRP, BMP, CDP #### [facility] [address] [place], [place] [address] Angle Furnaceman: Jameson Aaron MD MCHC (RBC) [Mass/Vol] 31.5 g/dL Normal 28.4-34.8 [facility] Comment on above: Performed By: #### S ED, CRP, BMP, CDP #### [address] [place], [place] [address] Angle Furnaceman: Jameson Aaron MD MCV (RBC) [Entitic vol] 89.5 fL Normal 82.6-102.9 [facility] Comment on above: Performed By: #### S ED, CRP, BMP, CDP #### [address] [place], [place] [address] Angle Furnaceman: Jameson Aaron MD Monocytes (Bld) [#/Vol] 1.42 10*3/uL High 0.10-1.20 [facility] Comment on above: Performed By: #### S ED, CRP, BMP, CDP #### [address] [place], [place] [address] Angle Furnaceman: Jameson Aaron MD Monocytes/100 WBC (Bld) 14 % High 3-12 [facility] Comment on above: Performed By: #### S ED, CRP, BMP, CDP #### [address] [place], [place] [address] Angle Furnaceman: Jameson Aaron MD Neutrophil (Seg) 64 % Normal 36-65 [facility] Comment on above: Performed By: #### S ED, CRP, BMP, CDP #### [address] [place], [facility]83 Angle Furnaceman: Jameson Aaron MD NRBC Automated 0.0 per 100 WBC Normal 0.0 [facility] Comment on above: Performed By: #### S ED, CRP, BMP, CDP #### [place] [address] [place], [place] [address]83 Angle Furnaceman: Jameson Aaron MD Platelet mean volume (Bld) [Entitic vol] 9.4 fL Normal 8.1-13.5 [facility] Comment on above: Performed By: #### S ED, CRP, BMP, CDP #### [facility] [address] [place], [facility] Angle Furnaceman: Jameson Aaron MD Platelets (Bld) [#/Vol] 266 10*3/uL Normal 138-453 [facility] Comment on above: Performed By: #### S ED, CRP, BMP, CDP #### [address] [place], [place] [address]83 Angle Furnaceman: Jameson Aaron MD RBC (Bld) [#/Vol] 4.68 10*6/uL Normal 4.21-5.77 [facility] Comment on above: Performed By: #### S ED, CRP, BMP, CDP #### [address] [place], [facility]83 Angle Furnaceman: Jameson Aaron MD WBC (Bld) [#/Vol] 10.5 10*3/uL Normal 3.5-11.3 [facility] Comment on above: Performed By: #### S ED, CRP, BMP, CDP #### [address] [place], [facility]84 ( Angle Furnaceman: Jameson Aaron MD Sedimentation Rateon 023 Sedimentation Rate 114 mm/Hr High 0-20 [facility] Comment on above: Performed By: #### S ED, CRP, BMP, CDP #### [address] [place], [place] [address]83 Angle Furnaceman: Jameson Aaron MD FUNGAL CULTUREon 09-21-2022 Fungus (Mycology) Culture Final report Abnormal [facility] Comment on above: Performed By: #### C XFUN ####[facility] [address] [place] [address]Dr. Eddie Lerner Fungus Stain Final report Normal [facility] Comment on above: Performed By: #### C XFUN ####[facility] [address] [place] [address]Dr. Eddie Lerner Result 1 Comment Normal [facility] Comment on above: Result Comment: ANNEMARIE/ Calcofluor preparation: no fungus observed. Performed By: #### C XFUN ####[facility] [address] [place] [address]Dr. Eddie Lerner Result 1 Rosy albicans Abnormal [facility] Comment on above: Performed By: #### C XFUN ####[facility] [address] [place] [address]Dr. Eddie Lerner CULTURE OTHERon 08-23-2022 CULTURE OTHER Isolate 1 Enterococcus faecalis Light growth of ORGANISM 1 Enterococcus faecalis ANTIBIOTIC M.I.C RX STATUS Beta-Lactamase Neg NEG F Benzylpenicillin 0.5 S F Ampicillin <=2 S F Gentamicin High Level (synergy) SYN-R R F Streptomycin High Level (synergy) SYN-S S F Quinupristin/Dalfopristin 4 R F Linezolid 1 S F Vancomycin 1 S F Normal [facility] Comment on above: Performed By: #### O THCX ####[facility] [address] [place] [address]Dr. Eddie Lerner ACID FAST SMEAR AND CXon Acid Fast Smear Negative Normal [facility] Comment on above: Performed By: #### A FB ####[facility] [address] [place] [address]Dr. Eddie Lerner [employer] Specimen Processing Tissue Grinding Normal [facility] Comment on above: Performed By: #### A FB ####[facility] [id number] [place] [address]Dr. Eddie Lerner BNPon 08-20-2022 Natriuretic peptide B (Bld) [Mass/Vol] 648.0 pg/mL Normal <=900.0 [facility] Comment on above: Performed By: #### A 1C #### [facility] [address] [address] [address] Eddie Lerner CULTURE ANAEROBICon 08-21-19 23 CULTURE ANAEROBIC Culture Observations : NO GROWTH OF ANAEROBES AT 72 HOURS. Normal [facility] Comment on above: Performed By: #### A NACX ####[facility] [address] [place] [place] [address]Dr. Eddie Lerner GLYCOHEMOGLOBIN A1Con 2022 ADA RECOMMENDATION SEE BELOW Normal [facility] Comment on above: Result Comment: ADA RECOMMENDED LIMIT 4.0 - 6.0 ADA THERAPEUTIC TARGET < 7.0 ACTION SUGGESTED > 7.0 Performed By: #### R ENAL, LIPID, LIVER, TSH #### [facility] [address] [address] [address] Eddie Lerner Glucose [Mass/Vol] 235 mg/dL Normal [facility] Comment on above: Performed By: #### R ENAL, LIPID, LIVER, TSH #### [facility] [address] [address] [address] Eddie Lerner HbA1c (Bld) [Mass fraction] 9.8 % Critically high 4.5-6.2 [facility] Comment on above: Performed By: #### R ENAL, LIPID, LIVER, TSH #### [facility] [address] [address] [address] Eddie Lerner GRAM STAINon 08-20-2022 COMMENTS NO ORGANISMS OBSERVED Normal [facility] Comment on above: Performed By: #### G STAIN ####[facility] [address] [address]Dr. Eddie Lerner DIPHTHEROIDS Normal [facility] Comment on above: Performed By: #### G STAIN ####[facility] [address] [address]Dr. Eddie Lerner EPITHELIALS Normal [facility] Comment on above: Performed By: #### G STAIN ####[facility] [address] [id number]. Eddie Lerner FUNGAL ELEMENTS Normal [facility] Comment on above: Performed By: #### G STAIN ####[facility] [address] [address]Dr. Eddie Lerner GRAM NEG BACILLI Normal [facility] Comment on above: Performed By: #### G STAIN ####[facility] [address] [address]Dr. Eddie Lerner GRAM NEG DIPPLOCOCCI Normal [facility] Comment on above: Performed By: #### G STAIN ####[facility] [address] [address]Dr. Eddie Lerner GRAM POS BACILLI Normal [facility] Comment on above: Performed By: #### G STAIN ####[facility] [address] [address]Dr. Eddie Lerner GRAM POSITIVE COCCI Normal [facility] Comment on above: Performed By: #### G STAIN ####[facility] [address] [place], [place] [address]Dr. Eddie Lerner GRAM STAIN SOURCE Lt Foot Bone Normal [facility] Comment on above: Performed By: #### G STAIN ####[facility] [address] [place], [place] [address]Dr. Eddie Lerner GS_DIPTH Normal [facility] Comment on above: Performed By: #### G STAIN ####[facility] [address] [place], [place] [address]Dr. Eddie Lerner WBC RARE Normal [facility] Comment on above: Performed By: #### G STAIN ####[facility] [address] [place], [place] [address]Dr. Eddie Lerner LIPID PROFILEon 08-20-2022 CHOL-HDL RATIO NORM SEE BELOW Normal [facility] Comment on above: Result Comment: 3.3 - 4.4 LOW RISK 4.4 - 7.1 AVERAGE RISK 7.1 - 11.0 MODERATE RISK >11.0 HIGH RISK Performed By: #### A 1C #### [facility] [address] [address] [address] Eddie Lerner Cholesterol [Mass/Vol] 137 mg/dL Normal <=200 [facility] Comment on above: Performed By: #### A 1C #### [facility] [address] [address] [address] Eddie Lerner Cholesterol in HDL [Mass/Vol] 54 mg/dL Normal 40-60 [facility] Comment on above: Performed By: #### A 1C #### [facility] [address] [address] [address] Eddie Lerner Cholesterol in LDL [Mass/Vol] 63.2 mg/dL Normal [facility] Comment on above: Performed By: #### A 1C #### [facility] [address] [address] [address] Eddie Lerner Cholesterol.total/Ch olesterol in HDL [Mass ratio] 2.5 {ratio} Normal [facility] Comment on above: Performed By: #### A 1C #### [facility] [address] [place] [address] Dr. Eddie Lerner HDL NORMAL > or = 60 mg/dl - LO W CARDIOVASCULAR RISK <40 mg/dl - HIGH CARDIOVASCULAR RISK Normal [facility] Comment on above: Performed By: #### A 1C #### [facility] [address] [place] [address] Dr. Eddie Lerner LDL CALC NORMAL SEE BELOW Normal [facility] Comment on above: Result Comment: <100 mg/dl OPTIMAL 100 - 129 mg/dl NEAR OR ABOVE OPTIMAL 130 - 159 mg/dl BORDERLINE HIGH 160 - 189 mg/dl HIGH >190 mg/dl VERY HIGH Performed By: #### A 1C #### [facility] [address] [place] [address] Dr. Eddie Lerner Triglyceride [Mass/Vol] 99 mg/dL Normal <=150 [facility] Comment on above: Performed By: #### A 1C #### [facility] [address] [place] [address] Dr. Eddie Lerner VLDL CALC 19.8 mg/dL Normal [facility] Comment on above: Performed By: #### A 1C #### [facility] [address] [place] [address] Dr. Eddie Lerner LIVER PROFILEon 08-20-2022 Albumin [Mass/Vol] 2.8 g/dL Critically low 3.4-5.0 [facility] Comment on above: Performed By: #### A 1C #### [facility] [address] [place] [address] Dr. Eddie Lerner Albumin/Globulin [Mass ratio] 0.6 {ratio} Normal [facility] Comment on above: Performed By: #### A 1C #### [facility] [address] [place] [address] Dr. Eddie Lerner ALP [Catalytic activity/Vol] 87 U/L Normal 46-116 [facility] Comment on above: Performed By: #### A 1C #### [facility] [address] [place] [address] Dr. Eddie Lerner ALT [Catalytic activity/Vol] 49 U/L Normal 16-63 [facility] Comment on above: Performed By: #### A 1C #### [facility] [address] [place] [address] Dr. Eddie Lerner AST [Catalytic activity/Vol] 36 U/L Normal 15-37 [facility] Comment on above: Performed By: #### A 1C #### [facility] [address] [place] [address] Dr. Eddie Lerner BILI, CONJUGATED 0.1 mg/dL Normal 0.0-0.2 [facility] Comment on above: Performed By: #### A 1C #### [facility] [address] [place] [address] Dr. Eddie Lerner Bilirubin [Mass/Vol] 0.4 mg/dL Normal 0.2-1.0 [facility] Comment on above: Performed By: #### A 1C #### [facility] [address] [place] [address] Dr. Eddie Lerner Globulin (S) [Mass/Vol] 4.4 g/dL Normal [facility] Comment on above: Performed By: #### A 1C #### [facility] [address] [place] [address] Dr. Eddie Lerner Protein [Mass/Vol] 7.2 g/dL Normal 6.4-8.2 [facility] Comment on above: Performed By: #### A 1C #### [facility] [address] [place] [address] Dr. Eddie Lerner POINT OF CARE GLUCOSEon 04-2 Glucose [Mass/Vol] 107 mg/dL Critically high 74-106 [facility] Comment on above: Performed By: #### P OCGLUC #### [facility] [address] [place] [address] Dr. Eddie Lerner Glucose [Mass/Vol] 108 mg/dL Critically high 74-106 [facility] Comment on above: Performed By: #### P OCGLUC ####[facility] [address] [address]DrVaishali Lerner TSHon 08-20-2022 TSH 2.247 uIU/mL Normal 0.358-3.740 [facility] Comment on above: Performed By: #### A 1C #### [facility] [address] [place] [address] Dr. Eddie Lerner CBC AUTO DIFFon 08-15-2022 BASO # 0.0 103/ul Normal 0.0-0.1 [facility] Comment on above: Performed By: #### C BC ####[facility] [address] [address]Dr. Eddie Lerner Basophils/100 WBC (Bld) 0.4 % Normal 0.2-2.0 [facility] Comment on above: Performed By: #### C BC ####[facility] [address] [place], [place] [address]DrVaishali Lerner EO # 0.2 103/ul Normal 0.0-0.7 [facility] Comment on above: Performed By: #### C BC ####[facility] [address] [address]Dr. Eddie Lerner Eosinophils/100 WBC (Bld) 2.0 % Normal 0.9-7.0 [facility] Comment on above: Performed By: #### C BC ####[facility] [address] [place], [place] [address]Dr. Eddie Lerner Erythrocyte distribution width (RBC) [Ratio] 14.5 % Normal 11.0-15.0 [facility] Comment on above: Performed By: #### C BC ####[facility] [address] [address]Dr. Eddie Lerner Hematocrit (Bld) [Volume fraction] 40.5 % Critically low 42.0-54.0 [facility] Comment on above: Performed By: #### C BC ####[facility] [address] [address]Dr. Dainaquincy Lerner Hemoglobin (Bld) [Mass/Vol] 13.1 g/dL Critically low 14.0-18.0 [facility] Comment on above: Performed By: #### C BC ####[facility] [address] [place], [place] [address]Dr. Dainaquincy Lerner IG # 0.12 10e3/ul Critically high 0.00-0.03 [facility] Comment on above: Performed By: #### C BC ####[facility] [address] [place], [place] [address]Dr. Eddie Lerner IG % 1.2 % Critically high 0.0-0.5 [facility] Comment on above: Performed By: #### C BC ####[facility] [address] [place], [place] [address]Dr. Dainaquincy Lerner LYMPH # 1.4 103/ul Normal 1.2-3.8 [facility] Comment on above: Performed By: #### C BC ####[facility] [address] [place], [place] [address]Dr. Dainaquincy Lerner Lymphocytes/100 WBC (Bld) 13.6 % Critically low 20.5-60.0 [facility] Comment on above: Performed By: #### C BC ####[facility] [address] [place], [place] [address]Dr. Dainaquincy Lerner MANUAL DIFF REQ NO Normal [facility] Comment on above: Performed By: #### C BC ####[facility] [address] [place], [place] [address]Dr. Eddie Lerner MCH (RBC) [Entitic mass] 29.8 pg Normal 25.9-34.0 [facility] Comment on above: Performed By: #### C BC ####[facility] [address] [id number]. Dainaquincy Lerner MCHC (RBC) [Mass/Vol] 32.3 g/dL Normal 29.9-35.2 [facility] Comment on above: Performed By: #### C BC ####[facility] [address] [address]Dr. Eddie Lerner MCV (RBC) [Entitic vol] 92.0 fL Normal 80.0-94.0 [facility] Comment on above: Performed By: #### C BC ####[facility] [address] [place], [place] [address]Dr. Eddie Lerner MONO # 0.5 103/ul Normal 0.3-0.8 [facility] Comment on above: Performed By: #### C BC ####[facility] [address] [place], [place] [address]Dr. Eddie Lerner Monocytes/100 WBC (Bld) 4.8 % Normal 1.7-12.0 [facility] Comment on above: Performed By: #### C BC ####[facility] [address] [place], [place] [address]Dr. Eddie Lerner NEUT # 8.1 103/ul Critically high 1.4-6.5 [facility] Comment on above: Performed By: #### C BC ####[facility] [address] [place], [place] [address]Dr. Eddie Lerner Neutrophils/100 WBC (Bld) 78.0 % Critically high 43.0-75.0 [facility] Comment on above: Performed By: #### C BC ####[facility] [address] [place], [place] [address]Dr. dEdie Lerner Platelet mean volume (Bld) [Entitic vol] 8.6 fL Critically low 9.5-13.5 [facility] Comment on above: Performed By: #### C BC ####[facility] [address] [place], [place] [address]Dr. Eddie Lerner PLT 240 103/ul Normal 150-450 [facility] Comment on above: Performed By: #### C BC ####[facility] [address] [place], [place] [address]XlVaishali Lerner RBC 4.40 106/ul Critically low 4.70-6.10 [facility] Comment on above: Performed By: #### C BC ####[facility] [address] [place], [place] [address]IbVaishali Lerner WBC 10.3 103/ul Normal 4.0-11.0 [facility] Comment on above: Performed By: #### C BC ####[facility] [address] [place], [place] [address]Qt. Eddie Lerner CRPon 08-15-2022 CRP [Mass/Vol] mg/L Normal <=1.0 [facility] Comment on above: Performed By: #### A 1C #### [facility] [address] [place] [address] Dr. Eddie Lerner PROF CHEM 8 (BAS METB)on Anion gap [Moles/Vol] 14.4 mmol/L Normal [facility] Comment on above: Performed By: #### A 1C #### [facility] [address] [address] [address] Eddie Lerner Calcium [Mass/Vol] 9.2 mg/dL Normal 8.5-10.1 [facility] Comment on above: Performed By: #### A 1C #### [facility] [address] [address] [address] Eddie Lerner Chloride [Moles/Vol] 101 mmol/L Normal 98-107 [facility] Comment on above: Performed By: #### A 1C #### [facility] [address] [address] [address] Eddie Lerner CO2 [Moles/Vol] 25.2 mmol/L Normal 21.0-32.0 [facility] Comment on above: Performed By: #### A 1C #### [facility] [address] [address] [address] Eddie Lerner Creatinine [Mass/Vol] 3.07 mg/dL Critically high 0.70-1.30 [facility] Comment on above: Performed By: #### A 1C #### [facility] [address] [address] [address] Eddie Lerner EGFR-AF TUNISIAN 25 mL/min/1.73m2 Critically low >=60 [facility] Comment on above: Performed By: #### A 1C #### [facility] [address] [address] [address] Eddie Lerner EGFR-NON AF TUNISIAN 21 mL/min/1.73m2 Critically low >=60 [facility] Comment on above: Performed By: #### A 1C #### [facility] [address] [address] [address] Eddie Lerner Glucose [Mass/Vol] 415 mg/dL Critically high 74-106 [facility] Comment on above: Performed By: #### A 1C #### [facility] [address] [address] [address] Eddie Lerner Potassium [Moles/Vol] 5.6 mmol/L Critically high 3.5-5.1 [facility] Comment on above: Performed By: #### A 1C #### [facility] [address] [address] [address] Eddie Lerner Sodium [Moles/Vol] 135 mmol/L Critically low 136-145 [facility] Comment on above: Performed By: #### A 1C #### [facility] [address] [address] [address] Eddie Lerner Urea nitrogen [Mass/Vol] 34.0 mg/dL Critically high 7.0-18.0 [facility] Comment on above: Performed By: #### A 1C #### [facility] [address] [address] [address] Eddie Lerner Urea nitrogen/Creatinine [Mass ratio] 11.1 mg/mg Normal [facility] Comment on above: Performed By: #### A 1C #### [facility] [address] [address] [address] Eddie Lerner SED RATE WESTERGRENon 2022 SED RATE 59 mm/hr Critically high <=20 [facility] Comment on above: Performed By: #### S EDR ####[facility] [address] [address]Dr. Eddie Lerner BNPon 06-06-2022 Natriuretic peptide B (Bld) [Mass/Vol] 1342.0 pg/mL Critically high <=900.0 [facility] Comment on above: Performed By: #### B TRANSCRIPT EVALUATOR ####[facility] [address] [address]Dr. Eddie Lerner CBC AUTO DIFFon 06-06-2022 BASO # 0.1 103/ul Normal 0.0-0.1 [facility] Comment on above: Performed By: #### A 1C #### [facility] [address] [place] [address] Dr. Eddie Lerner Basophils/100 WBC (Bld) 0.6 % Normal 0.2-2.0 [facility] Comment on above: Performed By: #### A 1C #### [facility] [address] [place] [address] Dr. Eddie Lerner EO # 0.2 103/ul Normal 0.0-0.7 [facility] Comment on above: Performed By: #### A 1C #### [facility] [address] [place] [address] Dr. Eddie Lerner Eosinophils/100 WBC (Bld) 1.8 % Normal 0.9-7.0 [facility] Comment on above: Performed By: #### A 1C #### [facility] [address] [place] [address] Dr. Eddie Lerner Erythrocyte distribution width (RBC) [Ratio] 15.2 % Critically high 11.0-15.0 [facility] Comment on above: Performed By: #### A 1C #### [facility] [address] [place] [address] Dr. Eddie Lerner Hematocrit (Bld) [Volume fraction] 39.0 % Critically low 42.0-54.0 [facility] Comment on above: Performed By: #### A 1C #### [facility] [address] [place] [address] Dr. Eddie Lerner Hemoglobin (Bld) [Mass/Vol] 12.4 g/dL Critically low 14.0-18.0 [facility] Comment on above: Performed By: #### A 1C #### [facility] [address] [place] [address] Dr. Eddie Lerner IG # 0.21 10e3/ul Critically high 0.00-0.03 [facility] Comment on above: Performed By: #### A 1C #### [facility] [address] [place] [address] Dr. Eddie Lerner IG % 1.6 % Critically high 0.0-0.5 [facility] Comment on above: Performed By: #### A 1C #### [facility] [address] [place] [address] Dr. Eddie Lerner LYMPH # 1.9 103/ul Normal 1.2-3.8 [facility] Comment on above: Performed By: #### A 1C #### [facility] [address] [place] [address] Dr. Eddie Lerner Lymphocytes/100 WBC (Bld) 13.8 % Critically low 20.5-60.0 [facility] Comment on above: Performed By: #### A 1C #### [facility] [address] [place] [address] Dr. Eddie Lerner MANUAL DIFF REQ NO Normal [facility] Comment on above: Performed By: #### A 1C #### [facility] [address] [place] [address] Dr. Eddie Lerner MCH (RBC) [Entitic mass] 27.8 pg Normal 25.9-34.0 [facility] Comment on above: Performed By: #### A 1C #### [facility] [address] [place] [address] Dr. Eddie Lerner MCHC (RBC) [Mass/Vol] 31.8 g/dL Normal 29.9-35.2 [facility] Comment on above: Performed By: #### A 1C #### [facility] [address] [place] [address] Dr. Eddie Lerner MCV (RBC) [Entitic vol] 87.4 fL Normal 80.0-94.0 [facility] Comment on above: Performed By: #### A 1C #### [facility] [address] [place] [address] Dr. Eddie Lerner MONO # 0.8 103/ul Normal 0.3-0.8 [facility] Comment on above: Performed By: #### A 1C #### [facility] [address] [place] [address] Dr. Eddie Lerner Monocytes/100 WBC (Bld) 5.9 % Normal 1.7-12.0 [facility] Comment on above: Performed By: #### A 1C #### [facility] [address] [place] [address] Dr. Eddie Lerner NEUT # 10.3 103/ul Critically high 1.4-6.5 [facility] Comment on above: Performed By: #### A 1C #### [facility] [address] [place] [address] Dr. Eddie Lerner Neutrophils/100 WBC (Bld) 76.3 % Critically high 43.0-75.0 [facility] Comment on above: Performed By: #### A 1C #### [facility] [address] [place] [address] Dr. Eddie Lerner Platelet mean volume (Bld) [Entitic vol] 10.2 fL Normal 9.5-13.5 [facility] Comment on above: Performed By: #### A 1C #### [facility] [address] [place] [address] Dr. Eddie Lerner PLT 288 103/ul Normal 150-450 [facility] Comment on above: Performed By: #### A 1C #### [facility] [address] [place] [address] Dr. Eddie Lerner RBC 4.46 106/ul Critically low 4.70-6.10 [facility] Comment on above: Performed By: #### A 1C #### [facility] [address] [place] [address] Dr. Eddie Lerner WBC 13.5 103/ul Critically high 4.0-11.0 [facility] Comment on above: Performed By: #### A 1C #### [facility] [address] [place] [address] Dr. Eddie Lerner GLYCOHEMOGLOBIN A1Con 2022 ADA RECOMMENDATION SEE BELOW Normal [facility] Comment on above: Result Comment: ADA RECOMMENDED LIMIT 4.0 - 6.0 ADA THERAPEUTIC TARGET < 7.0 ACTION SUGGESTED > 7.0 Performed By: #### A 1C #### [facility] [address] [place] [address] Dr. Eddie Lerner Glucose [Mass/Vol] 283 mg/dL Normal [facility] Comment on above: Performed By: #### A 1C #### [facility] [address] [place] [address] Dr. Eddie Lerner HbA1c (Bld) [Mass fraction] 11.5 % Critically high 4.5-6.2 [facility] Comment on above: Performed By: #### A 1C #### [facility] [address] [place] [address] Dr. Eddie Lerner LIPID PROFILEon 06-06-2022 CHOL-HDL RATIO NORM SEE BELOW Normal [facility] Comment on above: Result Comment: 3.3 - 4.4 LOW RISK 4.4 - 7.1 AVERAGE RISK 7.1 - 11.0 MODERATE RISK >11.0 HIGH RISK Performed By: #### R ENAL, LIPID, LIVER, TSH #### [facility] [address] [place] [address] Dr. Eddie Lerner Cholesterol [Mass/Vol] 152 mg/dL Normal <=200 [facility] Comment on above: Performed By: #### R ENAL, LIPID, LIVER, TSH #### [facility] [address] [place] [address] Dr. Eddie Lerner Cholesterol in HDL [Mass/Vol] 51 mg/dL Normal 40-60 [facility] Comment on above: Performed By: #### R ENAL, LIPID, LIVER, TSH #### [facility] [address] [place] [address] Dr. Eddie Lerner Cholesterol in LDL [Mass/Vol] 61.0 mg/dL Normal [facility] Comment on above: Performed By: #### R ENAL, LIPID, LIVER, TSH #### [facility] [address] [address] [address] Eddie Lerner Cholesterol.total/Ch olesterol in HDL [Mass ratio] 3.0 {ratio} Normal [facility] Comment on above: Performed By: #### R ENAL, LIPID, LIVER, TSH #### [facility] [address] [address] [address] Eddie Lerner HDL NORMAL > or = 60 mg/dl - LO W CARDIOVASCULAR RISK <40 mg/dl - HIGH CARDIOVASCULAR RISK Normal [facility] Comment on above: Performed By: #### R ENAL, LIPID, LIVER, TSH #### [facility] [address] [address] [address] Eddie Lerner LDL CALC NORMAL SEE BELOW Normal [facility] Comment on above: Result Comment: <100 mg/dl OPTIMAL 100 - 129 mg/dl NEAR OR ABOVE OPTIMAL 130 - 159 mg/dl BORDERLINE HIGH 160 - 189 mg/dl HIGH >190 mg/dl VERY HIGH Performed By: #### R ENAL, LIPID, LIVER, TSH #### [facility] [address] [address] [address] Eddie Lerner Triglyceride [Mass/Vol] 200 mg/dL Critically high <=150 [facility] Comment on above: Performed By: #### R ENAL, LIPID, LIVER, TSH #### [facility] [address] [address] [address] Eddie Lerner VLDL CALC 40.0 mg/dL Normal [facility] Comment on above: Performed By: #### R ENAL, LIPID, LIVER, TSH #### [facility] [address] [address] [address] Eddie Lerner LIVER PROFILEon 06-06-2022 Albumin [Mass/Vol] 2.6 g/dL Critically low 3.4-5.0 [facility] Comment on above: Performed By: #### R ENAL, LIPID, LIVER, TSH #### [facility] [address] [address] [address] Eddie Lerner Albumin/Globulin [Mass ratio] 0.6 {ratio} Normal [facility] Comment on above: Performed By: #### R ENAL, LIPID, LIVER, TSH #### [facility] [address] [place] [address] Dr. Eddie Lerner ALP [Catalytic activity/Vol] 120 U/L Critically high 46-116 [facility] Comment on above: Performed By: #### R ENAL, LIPID, LIVER, TSH #### [facility] [address] [place] [address] Dr. Eddie Lerner ALT [Catalytic activity/Vol] 22 U/L Normal 16-63 [facility] Comment on above: Performed By: #### R ENAL, LIPID, LIVER, TSH #### [facility] [address] [place] [address] Dr. Eddie Lerner AST [Catalytic activity/Vol] 15 U/L Normal 15-37 [facility] Comment on above: Performed By: #### R ENAL, LIPID, LIVER, TSH #### [facility] [address] [place] [address] Dr. Eddie Lerner BILI, CONJUGATED 0.1 mg/dL Normal 0.0-0.2 [facility] Comment on above: Performed By: #### R ENAL, LIPID, LIVER, TSH #### [facility] [address] [place] [address] Dr. Eddie Lerner Bilirubin [Mass/Vol] 0.3 mg/dL Normal 0.2-1.0 [facility] Comment on above: Performed By: #### R ENAL, LIPID, LIVER, TSH #### [facility] [address] [place] [address] Dr. Eddie Lerner Globulin (S) [Mass/Vol] 4.7 g/dL Normal [facility] Comment on above: Performed By: #### R ENAL, LIPID, LIVER, TSH #### [facility] [address] [place] [address] Dr. Eddie Lerner Protein [Mass/Vol] 7.3 g/dL Normal 6.4-8.2 [facility] Comment on above: Performed By: #### R ENAL, LIPID, LIVER, TSH #### [facility] [address] [address] [address] Eddie Lerner RENAL FUNCTION PANELon 06-06 Calcium [Mass/Vol] 9.0 mg/dL Normal 8.5-10.1 [facility] Comment on above: Performed By: #### R ENAL, LIPID, LIVER, TSH #### [facility] [address] [address] [address] Eddie Lerner Chloride [Moles/Vol] 96 mmol/L Critically low 98-107 [facility] Comment on above: Performed By: #### R ENAL, LIPID, LIVER, TSH #### [facility] [address] [address] [address] Eddie Lerner CO2 [Moles/Vol] 21.8 mmol/L Normal 21.0-32.0 [facility] Comment on above: Performed By: #### R ENAL, LIPID, LIVER, TSH #### [facility] [address] [place] [address] Dr. Eddie Lerner Creatinine [Mass/Vol] 2.38 mg/dL Critically high 0.70-1.30 [facility] Comment on above: Performed By: #### R ENAL, LIPID, LIVER, TSH #### [facility] [address] [place] [address] Dr. Eddie Lerner EGFR-AF TUNISIAN 34 mL/min/1.73m2 Critically low >=60 [facility] Comment on above: Performed By: #### R ENAL, LIPID, LIVER, TSH #### [facility] [address] [address] [address] Eddie Lerner EGFR-NON AF TUNISIAN 28 mL/min/1.73m2 Critically low >=60 [facility] Comment on above: Performed By: #### R ENAL, LIPID, LIVER, TSH #### [facility] [address] [place] [address] Dr. Eddie Lerner Glucose [Mass/Vol] 523 mg/dL Critically high 74-106 [facility] Comment on above: Performed By: #### R ENAL, LIPID, LIVER, TSH #### [facility] [address] [place] [address] Dr. Eddie Lerner Phosphate [Mass/Vol] 4.1 mg/dL Normal 2.6-4.7 [facility] Comment on above: Performed By: #### R ENAL, LIPID, LIVER, TSH #### [facility] [address] [place] [address] Dr. Eddie Lerner Potassium [Moles/Vol] 4.6 mmol/L Normal 3.5-5.1 [facility] Comment on above: Performed By: #### R ENAL, LIPID, LIVER, TSH #### [facility] [address] [place] [address] Dr. Eddie Lerner Sodium [Moles/Vol] 128 mmol/L Critically low 136-145 [facility] Comment on above: Performed By: #### R ENAL, LIPID, LIVER, TSH #### [facility] [address] [place] [address] Dr. Eddie Lerner Urea nitrogen [Mass/Vol] 28.0 mg/dL Critically high 7.0-18.0 [facility] Comment on above: Performed By: #### R ENAL, LIPID, LIVER, TSH #### [facility] [address] [place] [address] Dr. Eddie Lerner TSHon 06-06-2022 TSH 1.308 uIU/mL Normal 0.358-3.740 [facility] Comment on above: Performed By: #### R ENAL, LIPID, LIVER, TSH #### [facility] [address] [place] [address] Dr. Eddie Lerner UA RANDOMon 06-06-2022 Bilirubin Ql (U) Negative Normal NEGATIVE [facility] Comment on above: Performed By: #### U A #### [facility] [address] [place] [address] Dr. Eddie Lerner Clarity (U) CLEAR Normal CLEAR [facility] Comment on above: Performed By: #### U A #### [facility] [address] [place] [address] Dr. Eddie Lerner Color (U) LT. YELLOW Normal YELLOW [facility] Comment on above: Performed By: #### U A #### [facility] [address] [place] [address] Dr. Eddie Lerner Glucose Ql (U) >1000 Abnormal NEGATIVE [facility] Comment on above: Performed By: #### U A #### [facility] [address] [place] [address] Dr. Eddie Lerner Hemoglobin Ql (U) TRACE-INTACT Abnormal NEGATIVE [facility] Comment on above: Performed By: #### U A #### [facility] [address] [place] [address] Dr. Eddie Lerner Ketones Ql (U) Negative Normal NEGATIVE [facility] Comment on above: Performed By: #### U A #### [facility] [address] [place] [address] Dr. Eddie Lerner LEUKOCYTES Negative Normal NEGATIVE [facility] Comment on above: Performed By: #### U A #### [facility] [address] [place] [address] Dr. Eddie Lerner Nitrite Ql (U) Negative Normal NEGATIVE [facility] Comment on above: Performed By: #### U A #### [facility] [address] [place] [address] Dr. Eddie Lerner pH (U) 6.5 [pH] Normal 5-9 [facility] Comment on above: Performed By: #### U A #### [facility] [address] [place] [address] Dr. Eddie Lerner SPEC GRAVITY 1.010 Normal 1.005-<=1.02 5 [facility] Comment on above: Performed By: #### U A #### [facility] [address] [place] [address] Dr. Eddie Lerner UA PROTEIN 100 mg/dl Abnormal NEGATIVE/ TRACE [facility] Comment on above: Performed By: #### U A #### [facility] [address] [place] [address] Dr. Eddie Lerner Urobilinogen Qn (U) 0.2 {Chaya'U}/dL Normal 0.2 - 1. 0 [facility] Comment on above: Performed By: #### U A #### [facility] [address] [address] [address] Eddie Lerner VITAMIN D 25 OHon 06-06-2022 VIT D 25-OH 13.9 ng/mL Normal [facility] Comment on above: Performed By: #### V ITAD ####[facility] [address] [address]Dr. Eddie Lerner VIT D RANGES SEE BELOW Normal [facility] Comment on above: Result Comment: <20 ng/mL Vit D deficient 20 - <30 ng/mL Vit D insufficient 30 - 100 ng/mL Vit D sufficient >100 ng/mL Potential Toxicity Performed By: #### V ITAD ####[facility] [address] [place], [place] [address]Dr. Eddie Lerner ACID FAST SMEAR AND CXon Acid Fast Culture Negative Normal [facility] Comment on above: Result Comment: No a wendy fast bacilli isolated after 6 weeks. Performed By: #### A FB ####[facility] [address] [address]Dr. Eddie Lerner Acid Fast Smear Negative Normal [facility] Comment on above: Performed By: #### A FB ####[facility] [address] [place], [place] [address]Dr. Eddie Lerner [employer] Specimen Processing Tissue Grinding Normal [facility] Comment on above: Performed By: #### A FB ####[facility] [address] [place], [place] [address]Dr. Eddie Lerner FUNGAL CULTUREon 01-19-2022 Fungus (Mycology) Culture Final report Normal [facility] Comment on above: Performed By: #### R ENAL, LIPID, LIVER, TSH #### [facility] [address] [address] [address] Eddie Lerner Fungus Stain Final report Normal [facility] Comment on above: Performed By: #### R ENAL, LIPID, LIVER, TSH #### [facility] [address] [address] [address] Eddie Lerner Result 1 Comment Normal [facility] Comment on above: Result Comment: ANNEMARIE/ Calcofluor preparation: no fungus observed. Performed By: #### R ENAL, LIPID, LIVER, TSH #### [facility] [address] [address] [address] Eddie Lerner Result Comment: No y east or mold isolated after 4 weeks. POINT OF CARE GLUCOSEon 12-28 Glucose [Mass/Vol] 177 mg/dL Critically high 74-106 [facility] Comment on above: Performed By: #### A 1C #### [facility] [id number] Eddie Lerner Glucose [Mass/Vol] 200 mg/dL Critically high 74-106 [facility] Comment on above: Performed By: #### P OCGLUC ####[facility] [address] [place], [place] [address]JjDr. Eddie Lerner Covid-19 PCR (CVDTB)on 12-28 SARS-CoV-2 (COVID-19) RNA SUDHA+probe Ql (Unsp spec) Not detected Normal NOT DETECTED [facility] Comment on above: Result Comment: This test is not yet approved or cleared by the [place] FDA. When there are no FDA-approved or cleared tests available, and other criteria are met, FDA can make tests available under an emergency access mechanism called an Emergency Use Authorization (EUA). The EUA for this test is supported by the [place] of Health and Human Service's (HHS's) declaration [...] SARS-CoV-2. Performed By: #### A 1C #### [facility] [id number] Eddie Lerner PROF CHEM 8 (BAS METB)on Anion gap [Moles/Vol] 15.0 mmol/L Normal [facility] Comment on above: Performed By: #### R ENAL, LIPID, LIVER, TSH #### [facility] [address] [address] [address] Eddie Lerner Calcium [Mass/Vol] 9.3 mg/dL Normal 8.5-10.1 [facility] Comment on above: Performed By: #### R ENAL, LIPID, LIVER, TSH #### [facility] [address] [place] [address] Dr. Eddie Lerner Chloride [Moles/Vol] 105 mmol/L Normal 98-107 [facility] Comment on above: Performed By: #### R ENAL, LIPID, LIVER, TSH #### [facility] [address] [place] [address] Dr. Eddie Lerner CO2 [Moles/Vol] 22.1 mmol/L Normal 21.0-32.0 [facility] Comment on above: Performed By: #### R ENAL, LIPID, LIVER, TSH #### [facility] [address] [place] [address] Dr. Eddie Lerner Creatinine [Mass/Vol] 2.29 mg/dL Critically high 0.70-1.30 [facility] Comment on above: Performed By: #### R ENAL, LIPID, LIVER, TSH #### [facility] [address] [place] [address] Dr. Eddie Lerner EGFR-AF TUNISIAN 35 mL/min/1.73m2 Critically low >=60 [facility] Comment on above: Performed By: #### R ENAL, LIPID, LIVER, TSH #### [facility] [address] [place] [address] Dr. Eddie Lerner EGFR-NON AF TUNISIAN 29 mL/min/1.73m2 Critically low >=60 [facility] Comment on above: Performed By: #### R ENAL, LIPID, LIVER, TSH #### [facility] [address] [place] [address] Dr. Eddie Lerner Glucose [Mass/Vol] 115 mg/dL Critically high 74-106 [facility] Comment on above: Performed By: #### R ENAL, LIPID, LIVER, TSH #### [facility] [address] [address] [address] Eddie Lerner Potassium [Moles/Vol] 5.1 mmol/L Normal 3.5-5.1 [facility] Comment on above: Performed By: #### R ENAL, LIPID, LIVER, TSH #### [facility] [address] [address] [address] Eddie Lerner Sodium [Moles/Vol] 137 mmol/L Normal 136-145 [facility] Comment on above: Performed By: #### R ENAL, LIPID, LIVER, TSH #### [facility] [address] [address] [address] Eddie Lerner Urea nitrogen [Mass/Vol] 26.0 mg/dL Critically high 7.0-18.0 [facility] Comment on above: Performed By: #### R ENAL, LIPID, LIVER, TSH #### [facility] [address] [address] [address] Eddie Lerner Urea nitrogen/Creatinine [Mass ratio] 11.4 mg/mg Normal [facility] Comment on above: Performed By: #### R ENAL, LIPID, LIVER, TSH #### [facility] [address] [address] [address] Eddie Lerner TISSUE CULTUREon 01-08-2022 Anaerobic Culture, Extended Incubation Final report Normal [facility] Comment on above: Performed By: #### C XTISSU ####[facility] [address] [address]Dr. Eddie Lerner Result 1 Comment Normal [facility] Comment on above: Result Comment: Diph theroids, not Corynebacterium jeikeium Light growth Susceptibility not normally performed on this organism. Performed By: #### C XTISSU ####[facility] [address] [address]Dr. Eddie Lerner Result Comment: No a naerobes recovered. Tissue Culture Final report Abnormal [facility] Comment on above: Performed By: #### C XTISSU ####[facility] [address] [id number]. Eddie Lerner POINT OF CARE GLUCOSEon 08- Glucose [Mass/Vol] 89 mg/dL Normal 74-106 [facility] Comment on above: Performed By: #### R ENAL, LIPID, LIVER, TSH #### [facility] [address] [address] [address] Eddie Lerner Glucose [Mass/Vol] 85 mg/dL Normal 74-106 [facility] Comment on above: Performed By: #### P OCGLUC ####[facility] [address] [id number]. Eddie Lerner GRAM STAINon 12-21-2021 COMMENTS NO ORGANISMS OBSERVED Normal [facility] Comment on above: Performed By: #### R ENAL, LIPID, LIVER, TSH #### [facility] [address] [address] [address] Eddie Lerner DIPHTHEROIDS Normal [facility] Comment on above: Performed By: #### R ENAL, LIPID, LIVER, TSH #### [facility] [address] [address] [address] Eddie Lerner EPITHELIALS Normal [facility] Comment on above: Performed By: #### R ENAL, LIPID, LIVER, TSH #### [facility] [address] [address] [address] Eddie Lerner FUNGAL ELEMENTS Normal [facility] Comment on above: Performed By: #### R ENAL, LIPID, LIVER, TSH #### [facility] [address] [address] [address] Eddie PRINGLE NEG BACILLI Normal [facility] Comment on above: Performed By: #### R ENAL, LIPID, LIVER, TSH #### [facility] [address] [address] [address] Eddie PRINGLE NEG DIPPLOCOCCI Normal [facility] Comment on above: Performed By: #### R ENAL, LIPID, LIVER, TSH #### [facility] [address] [address] [address] Eddie PRINGLE POS BACILLI Normal [facility] Comment on above: Performed By: #### R ENAL, LIPID, LIVER, TSH #### [facility] [address] [address] [address] Eddie Lerner GRAM POSITIVE COCCI Normal [facility] Comment on above: Performed By: #### R ENAL, LIPID, LIVER, TSH #### [facility] [address] [address] [address] Eddie Lerner GRAM STAIN SOURCE Lt 1st Metatarsal Bone Normal [facility] Comment on above: Performed By: #### R ENAL, LIPID, LIVER, TSH #### [facility] [address] [address] [address] Eddie Lerner GS_DIPTH [facility] Comment on above: Performed By: #### R ENAL, LIPID, LIVER, TSH #### [facility] [address] [address] [address] Eddie Lerner WBC RARE Normal [facility] Comment on above: Performed By: #### R ENAL, LIPID, LIVER, TSH #### [facility] [address] [address] [address] Eddie Lerner POINT OF CARE GLUCOSEon 11-28 Glucose [Mass/Vol] 148 mg/dL Critically high 74-106 [facility] Comment on above: Performed By: #### A 1C #### [facility] [address] [address] [address] Eddie Lerner Glucose [Mass/Vol] 100 mg/dL Normal 74-106 [facility] Comment on above: Performed By: #### P OCGLUC ####[facility] [address] [address]DrVaishali Lerner Glucose [Mass/Vol] 85 mg/dL Normal 74-106 [facility] Comment on above: Performed By: #### P OCGLUC ####[facility] [address] [address]DrVaishali Lerner Glucose [Mass/Vol] 83 mg/dL Normal 74-106 [facility] Comment on above: Performed By: #### R ENAL, LIPID, LIVER, TSH #### [facility] [address] [address] [address] Eddie Lerner [facility]28 SARS-CoV-2 (COVID-19) RNA SUDHA+probe Ql (Unsp spec) Not detected Normal NOT DETECTED [facility] Comment on above: Result Comment: This test is not yet approved or cleared by the [place] FDA. When there are no FDA-approved or cleared tests available, and other criteria are met, FDA can make tests available under an emergency access mechanism called an Emergency Use Authorization (EUA). The EUA for this test is supported by the [employer] of Health and Human Service's (HHS's) declaration [...] with SARS-CoV-2. Performed By: #### C VDTBH ####[facility] [address] [address]Dr. Eddie Lerner PROF CHEM 8 (BAS METB)on Anion gap [Moles/Vol] 11.5 mmol/L Normal [facility] Comment on above: Performed By: #### R ENAL, LIPID, LIVER, TSH #### [facility] [address] [address] [address] Eddie Lerner Calcium [Mass/Vol] 9.0 mg/dL Normal 8.5-10.1 [facility] Comment on above: Performed By: #### R ENAL, LIPID, LIVER, TSH #### [facility] [address] [address] [address] Eddie Lerner Chloride [Moles/Vol] 102 mmol/L Normal 98-107 [facility] Comment on above: Performed By: #### R ENAL, LIPID, LIVER, TSH #### [facility] [address] [address] [address] Eddie Lerner CO2 [Moles/Vol] 24.8 mmol/L Normal 21.0-32.0 [facility] Comment on above: Performed By: #### R ENAL, LIPID, LIVER, TSH #### [facility] [address] [address] [address] Eddie Lerner Creatinine [Mass/Vol] 2.19 mg/dL Critically high 0.70-1.30 [facility] Comment on above: Performed By: #### R ENAL, LIPID, LIVER, TSH #### [facility] [address] [address] [address] Eddie Lerner EGFR-AF TUNISIAN 37 mL/min/1.73m2 Critically low >=60 [facility] Comment on above: Performed By: #### R ENAL, LIPID, LIVER, TSH #### [facility] [address] [place] [address] Dr. Eddie Lerner EGFR-NON AF TUNISIAN 31 mL/min/1.73m2 Critically low >=60 [facility] Comment on above: Performed By: #### R ENAL, LIPID, LIVER, TSH #### [facility] [address] [address] [address] Eddie Lerner Glucose [Mass/Vol] 330 mg/dL Critically high 74-106 [facility] Comment on above: Performed By: #### R ENAL, LIPID, LIVER, TSH #### [facility] [address] [address] [address] Eddie Lerner Potassium [Moles/Vol] 5.3 mmol/L Critically high 3.5-5.1 [facility] Comment on above: Performed By: #### R ENAL, LIPID, LIVER, TSH #### [facility] [address] [place] [address] Dr. Eddie Lerner Sodium [Moles/Vol] 133 mmol/L Critically low 136-145 [facility] Comment on above: Performed By: #### R ENAL, LIPID, LIVER, TSH #### [facility] [address] [address] [address] Eddie Lerner Urea nitrogen [Mass/Vol] 25.0 mg/dL Critically high 7.0-18.0 [facility] Comment on above: Performed By: #### R ENAL, LIPID, LIVER, TSH #### [facility] [address] [place], [place] [address] Dr. Eddie Lerner Urea nitrogen/Creatinine [Mass ratio] 11.4 mg/mg Normal [facility] Comment on above: Performed By: #### R ENAL, LIPID, LIVER, TSH #### [facility] [address] [place], [place] [address] Dr. Eddie Lerner Albumin [Mass/volume] in Ser um or Plasmaon 08-25-2020 Albumin [Mass/Vol] 2.0 g/dL 3.2-5.5 [facility] Basophils Auto (Bld) [#/Vol] on 08-25-2020 Basophils (Bld) [#/Vol] 0.0 10*3/uL 0.0-0.2 [facility] Basophils/100 WBC Auto (Bld) on 08-25-2020 Basophils/100 WBC (Bld) 0.1 % [facility] Blood anisocytosis detection on 08-25-2020 Anisocytosis Ql (Bld) Slight [facility] Blood hemoglobin measurement (mass/volume)on 08-25-2020 Hemoglobin (Bld) [Mass/Vol] 10.1 g/dL 13.0-17.0 [facility] Blood leukocytes automated c ount (number/volume)on 08-25-2020 WBC (Bld) [#/Vol] 12.6 10*3/uL 4.5-11.0 [facility] Blood polychromasia detectio n by light microscopyon 08-25-2020 Polychromasia LM Ql (Bld) Slight [facility] Creatinine and Glomerular fi ltration rate.predicted panel (S/P/Bld)on 08-25-2020 Creatinine [Mass/Vol] 4.06 mg/dL 0.64-1.27 [facility] Eosinophils Auto (Bld) [#/Vo l]on 08-25-2020 Eosinophils (Bld) [#/Vol] 0.0 10*3/uL 0.0-0.45 [facility] Eosinophils/100 WBC Auto (Bl d)on 08-25-2020 Eosinophils/100 WBC (Bld) 0.1 % [facility] Erythrocyte distribution wid th Auto (RBC) [Ratio]on 08-25-2020 Erythrocyte distribution width (RBC) [Ratio] 16.6 % 12.0-14.8 [facility] Estimated glomerular filtrat ion rate (GFR) non- Americanon 08-25-2020 GFR/1.73 sq M.predicted among non-blacks MDRD (S/P/Bld) [Vol rate/Area] 15 mL/Min [facility] Glucose Glucometer (BldC) [M ass/Vol]on 08-25-2020 Glucose [Mass/Vol] 122 mg/dL [facility] Comment on above: Random Glucose Refer ence Range is dependent on time and content of last meal. Glucose of more than 200 mg/dL in a nonstressed, ambulatory subject supports the diagnosis of Diabetes Mellitus. Hematocrit Auto (Bld) [Volum e fraction]on 08-25-2020 Hematocrit (Bld) [Volume fraction] 31.7 % 38.8-50.0 [facility] Laboratory - Hematology and Cell countson 08-25-2020 Nucleated RBC/100 WBC (Bld) [Ratio] 0.2 % 0-0.5 [facility] Lymphocytes Auto (Bld) [#/Vo l]on 08-25-2020 Lymphocytes (Bld) [#/Vol] 1.1 10*3/uL 1.00-4.8 [facility] Lymphocytes/100 WBC Auto (Bl d)on 08-25-2020 Lymphocytes/100 WBC (Bld) 8.9 % [facility] MCH Auto (RBC) [Entitic mass ]on 08-25-2020 MCH (RBC) [Entitic mass] 26.2 pg 27.5-35.2 [facility] MCHC Auto (RBC) [Mass/Vol]on 08-25-2020 MCHC (RBC) [Mass/Vol] 31.9 g/dL 32.5-35.6 [facility] MCV Auto (RBC) [Entitic vol] on 08-25-2020 MCV (RBC) [Entitic vol] 82.3 fL 83.5-101 [facility] Monocytes Auto (Bld) [#/Vol] on 08-25-2020 Monocytes (Bld) [#/Vol] 1.2 10*3/uL 0.0-0.8 [facility] Monocytes/100 WBC Auto (Bld) on 08-25-2020 Monocytes/100 WBC (Bld) 9.6 % [facility] Neutrophils Auto (Bld) [#/Vo l]on 08-25-2020 Neutrophils (Bld) [#/Vol] 10.2 10*3/uL 1.8-7.7 [facility] Neutrophils/100 WBC Auto (Bl d)on 08-25-2020 Neutrophils/100 WBC (Bld) 81.3 % [facility] No Panel Informationon 08-25 Bedside Glucose Comment Glu2: cleaned meter [facility] Estimated GFR () 18 mL/Min [facility] Comment on above: GFR estimated refere nce range: According to KDOQI guidelines, <60 ml/min/1.73m2 is sufficient to diagnose a patient with chronic kidney disease. Pharmacy Creatinine Clearance (Chem 31.84 [facility] Platelet Estimate Normal Normal [facility] Platelet Morphology Comment Normal Normal [facility] Phosphate [Mass/volume] in S miki or Plasmaon 08-25-2020 Phosphate [Mass/Vol] 5.3 mg/dL 2.5-4.6 [facility] Platelet mean volume Auto (B ld) [Entitic vol]on 08-25-2020 Platelet mean volume (Bld) [Entitic vol] 7.1 fL 6.6-10.1 [facility] Platelets Auto (Bld) [#/Vol] on 08-25-2020 Platelets (Bld) [#/Vol] 388 10*3/uL 150-450 [facility] RBC Auto (Bld) [#/Vol]on RBC (Bld) [#/Vol] 3.85 10*6/uL 3.90-5.60 [facility] RBC morphologyon 08-25-2020 RBC morphology finding Nom (Bld) N/A [facility] Serum or plasma calcium joel urement (mass/volume)on 08-25-2020 Calcium [Mass/Vol] 8.7 mg/dL 8.2-10.2 [facility] Serum or plasma chloride faraz surement (moles/volume)on 08-25-2020 Chloride [Moles/Vol] 99 mmol/L 95-114 [facility] Serum or plasma glucose joel urement (mass/volume)on 08-25-2020 Glucose [Mass/Vol] 113 mg/dL 70-100 [facility] Comment on above: ADA recommended refe rence rangeRandom Glucose Reference Range is dependent on time and content of last meal. Glucose of more than 200 mg/dL in a nonstressed, ambulatory subject supports the diagnosis of Diabetes Mellitus. Serum or plasma potassium me asurement (moles/volume)on 08-25-2020 Potassium [Moles/Vol] 4.6 mmol/L 3.5-5.1 [facility] Serum or plasma sodium measu rement (moles/volume)on 08-25-2020 Sodium [Moles/Vol] 135 mmol/L 136-146 [facility] Serum or plasma total carbon dioxide measurement (moles/volume)on 08-25-2020 CO2 [Moles/Vol] 26.2 mmol/L 22.0-30.0 [facility] Serum or plasma urea nitroge n measurement (mass/volume)on 08-25-2020 Urea nitrogen [Mass/Vol] 75 mg/dL 9-23 [facility] Erythrocyte basophilic stipp ling detectionon 08-24-2020 Basophilic stippling LM Ql (Bld) Slight [facility] Laboratory - Hematology and Cell countson 08-24-2020 Band form neutrophils/100 WBC (Bld) 1 % 0-5 [facility] Lymphocytes/100 WBC Auto (Bl d)on 08-24-2020 Lymphocytes/100 WBC (Bld) 6 % 18-42 [facility] Metamyelocytes/100 WBC Manua l cnt (Bld)on 08-24-2020 Metamyelocytes/100 WBC (Bld) 1 % 0-0 [facility] Monocytes/100 WBC Manual cnt (Bld)on 08-24-2020 Monocytes/100 WBC (Bld) 4 % 2-11 [facility] Myelocytes/100 WBC Manual cn t (Bld)on 08-24-2020 Myelocytes/100 WBC (Bld) 1 % 0-0 [facility] No Panel Informationon 08-24 Rouleau Slight [facility] Segmented neutrophils/100 WB C Manual cnt (Bld)on 08-24-2020 Segmented neutrophils/100 WBC (Bld) 87 % 50-70 [facility] No Panel Informationon 08-23 Bedside Glucose #[address]/rn [facility] Bedside Glucose #3 Comment Cleaned meter [facility] Serum nuclear antibody titer on 08-23-2020 Nuclear Ab (S) [Titer] Negative [facility] Comment on above: Negative <1:80 Borde rline 1:80 Positive >1:80Performed at: [facility] [address] [id number] Director: Mata Brian PhD, Phone: [phone] Serum or plasma rheumatoid f actor measurement (units/volume)on 08-23-2020 Rheumatoid factor Qn 20.6 [IU]/mL [facility] Comment on above: Performed at: [facility] [address] [id number] Director: Mata Brian PhD, Phone: [phone] CT biopsyon 08-22-2020 Transferrin [Mass/Vol] 104 mg/dL 180-380 [facility] Ferritin [Mass/volume] in Se rum or Plasmaon 08-22-2020 Ferritin [Mass/Vol] 334.8 ng/mL 23.9-336.2 [facility] Iron [Mass/volume] in Serum or Plasmaon 08-22-2020 Iron [Mass/Vol] 17 ug/dL 40-160 [facility] Iron binding capacity [Mass/ volume] in Serum or Plasmaon 08-22-2020 Iron binding capacity [Mass/Vol] 146 ug/dL 255-450 [facility] Iron saturation [Mass Fracti on] in Serum or Plasmaon 08-22-2020 Iron saturation [Mass fraction] 11.0 % 20-50 [facility] Creatine kinase [Enzymatic a ctivity/volume] in Serum or Plasmaon 08-21-2020 CK [Catalytic activity/Vol] 45 U/L 22269 [facility] No Panel Informationon 08-21 Dohle Bodies Slight [facility] Serum or plasma cardiac trop onin I measurement (mass/volume)on 08-21-2020 Troponin I.cardiac [Mass/Vol] ng/mL 0-0.02 [facility] Comment on above: HÉCTOR [place] Cut off value > or equal to 0.03 ng/mL in conjunction with clinical conditions of myocardial infarction.([email or web address]/guidelines) Serum or plasma creatine kin ase MB (CKMB)/total creatine kinase (CK) ratio by calculaon 08-21-2020 CK.MB Calc [Catalytic fraction] 5.1 % 0.00-2.50 [facility] Serum or plasma creatine kin ase MB measurement (mass/volume)on 08-21-2020 CK.MB [Mass/Vol] 2.3 ng/mL 0.6-6.3 [facility] Erythrocyte sedimentation ra te by Photometric methodon 08-20-2020 ESR Photometric method (Bld) [Velocity] 108 mm/hr 0-19 [facility] Serum or plasma C reactive p rotein measurement (mass/volume)on 08-20-2020 CRP [Mass/Vol] 19.4 mg/dL 0.0-1.0 [facility] ABO and Rh group post transf usion reaction Nom (Bld)on 08-19-2020 Microscopic observation Gram stain Nom (Unsp spec) [facility] Glucose mean value [Mass/vol ume] in Blood Estimated from glycated hemoglobinon 08-19-2020 Average glucose Estimated from glycated hemoglobin (Bld) [Mass/Vol] 298 mg/dL [facility] Hemoglobin A1c percentageon 08-19-2020 HbA1c (Bld) [Mass fraction] 12.0 % 4.3-5.6 [facility] Comment on above: Increased risk for d iabetes: 5.7 - 6.4diabetes: >6.4glycemic control for adults with diabetes: <7.0 Laboratory - Chemistry and C hemistry - challengeon 08-19-2020 Magnesium [Mass/Vol] 2.0 mg/dL 1.6-2.6 [facility] No Panel Informationon 08-19 25-Hydroxy Vitamin D Total 24.6 ng/mL 30-100 [facility] Comment on above: VITAMIN D [...] (PPP) [Time] 36.9 s 25.1-36.5 [facility] Albumin [Mass/volume] in Ser um or Plasmaon 08-18-2020 Albumin [Mass/Vol] 2.7 g/dL 3.2-5.5 [facility] Bacterial blood cultureon Bacteria identified Cx Nom (Bld) NO GROWTH 5 DAYS [facility] Basophils Auto (Bld) [#/Vol] on 08-18-2020 Basophils (Bld) [#/Vol] 0.0 10*3/uL 0.0-0.2 [facility] Basophils/100 WBC Auto (Bld) on 08-18-2020 Basophils/100 WBC (Bld) 0.3 % [facility] Beta-hydroxybutyric acid faraz surementon 08-18-2020 Beta hydroxybutyrate [Mass/Vol] 0.44 mmol/L 0.02-0.27 [facility] Blood hemoglobin measurement (mass/volume)on 08-18-2020 Hemoglobin (Bld) [Mass/Vol] 11.8 g/dL 13.0-17.0 [facility] Blood leukocytes automated c ount (number/volume)on 08-18-2020 WBC (Bld) [#/Vol] 15.3 10*3/uL 4.5-11.0 [facility] COVID-19 Detected/Not Detect edon 08-18-2020 SARS-CoV-2 (COVID-19) RNA SUDHA+non-probe Ql (Nph) Not detected Not Detecte [facility] Comment on above: This is a duplicate RP2.1 COVID (PCR) result to be used for statistical tracking purpose only. COVID-19 SOFIAon 08-18-2020 SARS-CoV+SARS-CoV-2 (COVID-19) Ag IA.rapid Ql (Resp) Negative Negative [facility] Comment on above: This is a duplicate Ayah SARS Antigen (AGUSTINA) result to be used for statistical tracking purpose only. Creatinine and Glomerular fi ltration rate.predicted panel (S/P/Bld)on 08-18-2020 Creatinine [Mass/Vol] 3.04 mg/dL 0.64-1.27 [facility] Eosinophils Auto (Bld) [#/Vo l]on 08-18-2020 Eosinophils (Bld) [#/Vol] 0.5 10*3/uL 0.0-0.45 [facility] Eosinophils/100 WBC Auto (Bl d)on 08-18-2020 Eosinophils/100 WBC (Bld) 3.4 % [facility] Erythrocyte distribution wid th Auto (RBC) [Ratio]on 08-18-2020 Erythrocyte distribution width (RBC) [Ratio] 16.3 % 12.0-14.8 [facility] Estimated glomerular filtrat ion rate (GFR) non- Americanon 08-18-2020 GFR/1.73 sq M.predicted among non-blacks MDRD (S/P/Bld) [Vol rate/Area] 21 mL/Min [facility] Globulin Calc (S) [Mass/Vol] on 08-18-2020 Globulin (S) [Mass/Vol] 4.4 g/dL [facility] Glucose Glucometer (BldC) [M ass/Vol]on 08-18-2020 Glucose [Mass/Vol] 388 mg/dL [facility] Comment on above: Random Glucose Refer ence Range is dependent on time and content of last meal. Glucose of more than 200 mg/dL in a nonstressed, ambulatory subject supports the diagnosis of Diabetes Mellitus. Hematocrit Auto (Bld) [Volum e fraction]on 08-18-2020 Hematocrit (Bld) [Volume fraction] 36.1 % 38.8-50.0 [facility] Laboratory - Chemistry and C hemistry - challengeon 08-18-2020 CO2 [Moles/Vol] 25.7 mmol/L 24.0-29.0 [facility] HCO3 (Bld) [Moles/Vol] 24.3 mmol/L 23.0-29.0 [facility] Magnesium [Mass/Vol] 2.2 mg/dL 1.6-2.6 [facility] Natriuretic peptide B (Bld) [Mass/Vol] 48.0 pg/mL 5-100 [facility] Laboratory - Coagulationon 0 08-18-2020 PT Coag (PPP) [Time] 11.7 s 9.0-12.9 [facility] Laboratory - Hematology and Cell countson 08-18-2020 Nucleated RBC/100 WBC (Bld) [Ratio] 0.1 % 0-0.5 [facility] Lymphocytes Auto (Bld) [#/Vo l]on 08-18-2020 Lymphocytes (Bld) [#/Vol] 0.9 10*3/uL 1.00-4.8 [facility] Lymphocytes/100 WBC Auto (Bl d)on 08-18-2020 Lymphocytes/100 WBC (Bld) 6.1 % [facility] MCH Auto (RBC) [Entitic mass ]on 08-18-2020 MCH (RBC) [Entitic mass] 27.2 pg 27.5-35.2 [facility] MCHC Auto (RBC) [Mass/Vol]on 08-18-2020 MCHC (RBC) [Mass/Vol] 32.6 g/dL 32.5-35.6 [facility] MCV Auto (RBC) [Entitic vol] on 08-18-2020 MCV (RBC) [Entitic vol] 83.5 fL 83.5-101 [facility] Monocytes Auto (Bld) [#/Vol] on 08-18-2020 Monocytes (Bld) [#/Vol] 1.5 10*3/uL 0.0-0.8 [facility] Monocytes/100 WBC Auto (Bld) on 08-18-2020 Monocytes/100 WBC (Bld) 10.1 % [facility] Neutrophils Auto (Bld) [#/Vo l]on 08-18-2020 Neutrophils (Bld) [#/Vol] 12.3 10*3/uL 1.8-7.7 [facility] Neutrophils/100 WBC Auto (Bl d)on 08-18-2020 Neutrophils/100 WBC (Bld) 80.1 % [facility] No Panel Informationon 08-18 Respiratory Panel (PCR) [facility] Blood Gas Critical Value See comment [facility] Comment on above: Critical Value fonseca d on: 08/18/2020 at 17:44 Blood Gas Sample Site Venous [facility] FiO2 21 % [facility] Venous Blood Base Excess -1.5 mmol/L -3.0-3.0 [facility] Venous Blood Oxygen Content 4.1 mmol/L 6.6-9.7 [facility] Venous Blood Oxygen Saturation 53.3 % 73.0-76.0 [facility] Venous Blood Partial Pressure CO2 45.2 mm[Hg] 38.0-50.0 [facility] Venous Blood Partial Pressure O2 24.4 mm[Hg] 35.0-45.0 [facility] Venous Blood pH 7.35 7.32-7.43 [facility] Estimated GFR () 26 mL/Min [facility] Comment on above: GFR estimated refere nce range: According to KDOQI guidelines, <60 ml/min/1.73m2 is sufficient to diagnose a patient with chronic kidney disease. Pharmacy Creatinine Clearance (Chem 38.57 [facility] Platelet mean volume Auto (B ld) [Entitic vol]on 08-18-2020 Platelet mean volume (Bld) [Entitic vol] 7.3 fL 6.6-10.1 [facility] Platelet poor plasma interna tional normalized ratio (INR) by coagulation assay (relaton 08-18-2020 INR Coag (PPP) [Relative time] 1.0 {INR} [facility] Comment on above: INR Therapeutic [...] (Bld) [#/Vol] 249 10*3/uL 150-450 [facility] Protein [Mass/volume] in Ser um or Plasmaon 08-18-2020 Protein [Mass/Vol] 7.1 g/dL 6.1-7.9 [facility] RBC Auto (Bld) [#/Vol]on RBC (Bld) [#/Vol] 4.32 10*6/uL 3.90-5.60 [facility] Serum or plasma alanine gomez otransferase measurement without P-5'-P (enzymatic activion 08-18-2020 ALT No additional P-5'-P [Catalytic activity/Vol] 13 U/L 10-60 [facility] Serum or plasma albumin/glob ulin mass ratioon 08-18-2020 Albumin/Globulin [Mass ratio] 0.6 {ratio} [facility] Serum or plasma alkaline kayode sphatase measurement (enzymatic activity/volume)on 08-18-2020 ALP [Catalytic activity/Vol] 88 U/L 32-92 [facility] Serum or plasma aspartate am inotransferase measurement (enzymatic activity/volume)on 08-18-2020 AST [Catalytic activity/Vol] 16 U/L 10-42 [facility] Serum or plasma calcium joel urement (mass/volume)on 08-18-2020 Calcium [Mass/Vol] 8.9 mg/dL 8.2-10.2 [facility] Serum or plasma cardiac trop onin I measurement (mass/volume)on 08-18-2020 Troponin I.cardiac [Mass/Vol] ng/mL 0-0.02 [facility] Comment on above: HÉCTOR [place] Cut off value > or equal to 0.03 ng/mL in conjunction with clinical conditions of myocardial infarction.([email or web address].org/guidelines) Serum or plasma chloride faraz surement (moles/volume)on 08-18-2020 Chloride [Moles/Vol] 95 mmol/L 95-114 [facility] Serum or plasma glucose joel urement (mass/volume)on 08-18-2020 Glucose [Mass/Vol] 512 mg/dL 70-100 [facility] Comment on above: Results calledat 165 9 on 08/18/20 ADA recommended reference rangeRandom Glucose Reference Range is dependent on time and content of last meal. Glucose of more than 200 mg/dL in a nonstressed, ambulatory subject supports the diagnosis of Diabetes Mellitus. Serum or plasma potassium me asurement (moles/volume)on 08-18-2020 Potassium [Moles/Vol] 4.2 mmol/L 3.5-5.1 [facility] Serum or plasma sodium measu rement (moles/volume)on 08-18-2020 Sodium [Moles/Vol] 128 mmol/L 136-146 [facility] Serum or plasma total biliru bin measurement (mass/volume)on 08-18-2020 Bilirubin [Mass/Vol] 0.7 mg/dL 0.3-1.2 [facility] Serum or plasma total carbon dioxide measurement (moles/volume)on 08-18-2020 CO2 [Moles/Vol] 22.6 mmol/L 22.0-30.0 [facility] Serum or plasma urea nitroge n measurement (mass/volume)on 08-18-2020 Urea nitrogen [Mass/Vol] 27 mg/dL 9-23 [facility] CBC COMPLETE BLOOD COUNTon 0 - Erythrocyte distribution width (RBC) [Ratio] 15.0 % Normal 11.5-15.0 [facility] Comment on above: Order Comment: No: D o not add to previous draw Performed By: #### [id number] #### [facility] [address] [place] [address], [facility] Hematocrit (Bld) [Volume fraction] 32.4 % Low 39.0-50.0 [facility] Comment on above: Order Comment: No: D o not add to previous draw Performed By: #### [id number] #### [facility] [address] [place] [address], [facility] Hemoglobin (Bld) [Mass/Vol] 9.5 g/dL Low 13.0-17.0 [facility] Comment on above: Order Comment: No: D o not add to previous draw Performed By: #### [id number] #### [facility] [address] [place] [address], [facility] MCH (RBC) [Entitic mass] 26.7 pg Low 27.0-33.0 [facility] Comment on above: Order Comment: No: D o not add to previous draw Performed By: #### [id number] #### [facility] [address] [facility] [place] [address], [facility] MCHC (RBC) [Mass/Vol] 29.3 g/dL Low 32.0-35.0 [facility] Comment on above: Order Comment: No: D o not add to previous draw Performed By: #### [id number] #### [facility] [address] [facility] [place] [address], [facility] MCV (RBC) [Entitic vol] 91.0 fL Normal 82.0-98.0 [facility] Comment on above: Order Comment: No: D o not add to previous draw Performed By: #### [id number] #### [facility] [address] [facility] [place] [address], [facility] Nucleated RBC/100 WBC (Bld) [Ratio] 0 % Normal 0-0 [facility] Comment on above: Order Comment: No: D o not add to previous draw Performed By: #### [id number] #### [facility] [address] [facility] [place] [address], [facility] PLAT CNT 276 10*3/uL Normal 150-400 [facility] Comment on above: Order Comment: No: D o not add to previous draw Performed By: #### [id number] #### [facility] [address] [place] [address], [facility] RBC (Bld) [#/Vol] 3.56 10*6/uL Low 4.20-5.70 [facility] Comment on above: Order Comment: No: D o not add to previous draw Performed By: #### [id number] #### [facility] [address] [place] [address], [place] WBC (Bld) [#/Vol] 8.61 10*3/uL Normal 4.00-10.60 [facility] Comment on above: Order Comment: No: D o not add to previous draw Performed By: #### [id number] #### [facility] [address] [place] [address], [place] COMP METABOLIC PANELon 07-22 Albumin [Mass/Vol] 2.7 g/dL Low 3.5-5.7 [facility] Comment on above: Order Comment: No: D o not add to previous draw Performed By: #### 8 [id number] #### [facility] [address] [place] [address], [place] ALKALINE PHOSPH 70 IU/L Normal 34-104 [facility] Comment on above: Order Comment: No: D o not add to previous draw Performed By: #### [id number] #### [facility] [address] [place] [address], [place] ALT [Catalytic activity/Vol] 4 U/L Low 7-52 [facility] Comment on above: Order Comment: No: D o not add to previous draw Performed By: #### [id number] #### [facility] [address] [place] [address], [place] AST [Catalytic activity/Vol] 15 U/L Normal 13-39 [facility] Comment on above: Order Comment: No: D o not add to previous draw Performed By: #### [id number] #### [facility] [address] [place] [address], [place] Bilirubin [Mass/Vol] 0.2 mg/dL Low 0.3-1.0 [facility] Comment on above: Order Comment: No: D o not add to previous draw Performed By: #### 8 [id number] #### [facility] [address] [place] [address], [facility] Calcium [Mass/Vol] 8.9 mg/dL Normal 8.6-10.3 [facility] Comment on above: Order Comment: No: D o not add to previous draw Performed By: #### 8 [id number] #### [facility] [address] [place] [address], [place] Chloride [Moles/Vol] 109 mmol/L High 98-107 [facility] Comment on above: Order Comment: No: D o not add to previous draw Performed By: #### 8 [id number] #### [facility] [address] [place] [address], [place] CO2 [Moles/Vol] 24 mmol/L Normal 21-31 [facility] Comment on above: Order Comment: No: D o not add to previous draw Performed By: #### 8 [id number] #### [facility] [address] [place] [address], [place] Creatinine [Mass/Vol] 3.39 mg/dL High 0.70-1.30 [facility] Comment on above: Order Comment: No: D o not add to previous draw Performed By: #### 8 [id number] #### [facility] [address] [place] [address], [facility] eGFR- 23 ml/min/1.73sq m Abnormal >60 [facility] Comment on above: Order Comment: No: D o not add to previous draw Performed By: #### 8 [id number] #### [facility] [address] [place] [address], [place] eGFR- non- 19 ml/min/1.73sq m Abnormal >60 [facility] Comment on above: Order Comment: No: D o not add to previous draw Performed By: #### [id number] #### [facility] [address] [place] [address], [place] Glucose [Mass/Vol] 90 mg/dL Normal 70-100 [facility] Comment on above: Order Comment: No: D o not add to previous draw Performed By: #### 8 [id number] #### [facility] [address] [place] [address], [place] Potassium [Moles/Vol] 4.4 mmol/L Normal 3.5-5.1 [facility] Comment on above: Order Comment: No: D o not add to previous draw Performed By: #### 8 [id number] #### [facility] [address] [place] [address], [place] Protein [Mass/Vol] 5.9 g/dL Low 6.0-8.3 [facility] Comment on above: Order Comment: No: D o not add to previous draw Performed By: #### 8 [id number] #### [facility] [address] [place] [address], [place] Sodium [Moles/Vol] 140 mmol/L Normal 136-145 [facility] Comment on above: Order Comment: No: D o not add to previous draw Performed By: #### 8 [id number] #### [facility] [address] [place] [address], [place] Urea nitrogen [Mass/Vol] 35 mg/dL High 7-25 [facility] Comment on above: Order Comment: No: D o not add to previous draw Performed By: #### 8 [id number] #### [facility] [address] [place] [address], [place] POC GLUCOSE LABon 07-22-2020 Glucose [Mass/Vol] 192 mg/dL High 70-100 [facility] Comment on above: Performed By: #### 8 [id number] #### [facility] [address] [place] [address], [place] Glucose [Mass/Vol] 95 mg/dL Normal 70-100 [facility] Comment on above: Performed By: #### 5 [id number], [address] #### [facility] [address] [place] [address], [place] Glucose [Mass/Vol] 123 mg/dL High 70-100 [facility] Comment on above: Performed By: #### 8 [id number] ####[facility] [place] [address], [place] ARTERIAL BLOOD GAS WITH ICAo n 07-21-2020 BASE EXCESS -2 mmol/L Normal -2-3 [facility] Comment on above: Performed By: #### 8 [id number] #### [facility] [address] [place] [address], [facility] [employer] FOCUS Normal [facility] Comment on above: Performed By: #### 8 [id number] #### [facility] [address] [place] [address], [place] HCO3 (Bld) [Moles/Vol] 24 mmol/L Normal 21-28 [facility] Comment on above: Performed By: #### 8 [id number] #### [facility] [address] [place] [address], [place] IONIZED CALCIUM 1.25 mmol/L Normal 1.13-1.32 [facility] Comment on above: Performed By: #### 8 [id number] #### [facility] [address] [place] [address], [place] LPM 4.0 LPM Normal [facility] Comment on above: Performed By: #### 8 [id number] #### [facility] [address] [place] [address], [place] MODALITY BIPAP Normal [facility] Comment on above: Performed By: #### 8 [id number] #### [facility] [address] Oxygen (Bld) [Partial pressure] 91 mm[Hg] Normal 83-108 [facility] Comment on above: Performed By: #### 8 [id number] #### [facility] [address] [place] [id number], [facility] Oxygen saturation in Blood 95.9 % Normal 94.0-97.0 [facility] Comment on above: Performed By: #### 8 [id number] #### [facility] [address] [place] [address], [facility] PCO2 47 mmHg High 35-45 [facility] Comment on above: Performed By: #### 8 [id number] #### [facility] [address] [facility] [place] [address], [facility] PEEP 8.0 CMH20 Normal [facility] Comment on above: Performed By: #### 8 [id number] #### [facility] [address] [place] [address], [facility] pH (Bld) 7.32 [pH] Low 7.35-7.45 [facility] [facility] Comment on above: Performed By: #### 8 [id number] #### [facility] [address] [address], [facility] PRESSURE SUPPORT 16 Normal [facility] Comment on above: Performed By: #### 8 [id number] #### [facility] [address] BASE EXCESS -3 mmol/L Low -2-3 [facility] Comment on above: Performed By: #### 3 0318 #### [facility] [address] [place] [id number], [facility] [employer] NASAL CANNULA Normal [facility] Comment on above: Performed By: #### 3 0318 #### [facility] [address] [place] [address], [facility] HCO3 (Bld) [Moles/Vol] 25 mmol/L Normal 21-28 [facility] Comment on above: Performed By: #### 3 0318 #### [facility] [address] [place] [address], [facility] IONIZED CALCIUM 1.26 mmol/L Normal 1.13-1.32 [facility] Comment on above: Performed By: #### 3 0318 #### [facility] [address] [place] [address], [facility] LPM 2.0 LPM Normal [facility] Comment on above: Performed By: #### 3 0318 #### [facility] [address] [place] [address], [facility] Oxygen (Bld) [Partial pressure] 92 mm[Hg] Normal 83-108 [facility] Comment on above: Performed By: #### 3 0318 #### [facility] [address] [facility] [address] Oxygen saturation in Blood 95.7 % Normal 94.0-97.0 [facility] Comment on above: Performed By: #### 3 0318 #### [facility] [address] [facility] [place] [address], [facility] PCO2 54 mmHg High 35-45 [facility] Comment on above: Performed By: #### 3 0318 #### [facility] [address] [facility] [place] [address], [facility] pH (Bld) 7.27 [pH] Low 7.35-7.45 [facility] Comment on above: Performed By: #### 3 0318 #### [facility] [address] [facility] [place] [address], [facility] BASIC METABOLIC PANELon 06-28 Calcium [Mass/Vol] 9.0 mg/dL Normal 8.6-10.3 [facility] Comment on above: Order Comment: No: D o not add to previous drawPt not in room rn will return when back. Performed By: #### 3 1943 #### [facility] [address] [place] [address], [facility] Chloride [Moles/Vol] 106 mmol/L Normal 98-107 [facility] Comment on above: Order Comment: No: D o not add to previous drawPt not in room rn will return when back. Performed By: #### 3 1943 #### [facility] [address] [place] [address], [place] CO2 [Moles/Vol] 25 mmol/L Normal 21-31 [facility] Comment on above: Order Comment: No: D o not add to previous drawPt not in room rn will return when back. Performed By: #### 3 1943 #### [facility] [address] [place] [address], [facility] Creatinine [Mass/Vol] 3.75 mg/dL High 0.70-1.30 [facility] Comment on above: Order Comment: No: D o not add to previous drawPt not in room rn will return when back. Performed By: #### 3 1943 #### [facility] [address] [place] [address], [facility] eGFR- 20 ml/min/1.73sq m Abnormal >60 [facility] Comment on above: Order Comment: No: D o not add to previous drawPt not in room rn will return when back. Performed By: #### 3 1943 #### [facility] [address] [place] [address], [facility] eGFR- non- 17 ml/min/1.73sq m Abnormal >60 [facility] Comment on above: Order Comment: No: D o not add to previous drawPt not in room rn will return when back. Performed By: #### 3 1943 #### [facility] [address] [place] [address], [place] Glucose [Mass/Vol] 132 mg/dL High 70-100 [facility] Comment on above: Order Comment: No: D o not add to previous drawPt not in room rn will return when back. Performed By: #### 3 1943 #### [facility] [address] [place] [address], [facility] Potassium [Moles/Vol] 5.0 mmol/L Normal 3.5-5.1 [facility] Comment on above: Order Comment: No: D o not add to previous drawPt not in room rn will return when back. Performed By: #### 3 1943 #### [facility] [address] [place] [address], [facility] Sodium [Moles/Vol] 138 mmol/L Normal 136-145 [facility] Comment on above: Order Comment: No: D o not add to previous drawPt not in room rn will return when back. Performed By: #### 3 1943 #### [facility] [address] [place] [address], [facility] Urea nitrogen [Mass/Vol] 37 mg/dL High 7-25 [facility] Comment on above: Order Comment: No: D o not add to previous drawPt not in room rn will return when back. Performed By: #### 3 1943 #### [facility] [address] CBC COMPLETE BLOOD COUNTon 0 07-21-2020 Erythrocyte distribution width (RBC) [Ratio] 15.0 % Normal 11.5-15.0 [facility] Comment on above: Order Comment: No: D o not add to previous drawPt not in room rn will return when back. Performed By: #### 8 [id number] #### [facility] [address] [place] [address], [facility] Hematocrit (Bld) [Volume fraction] 33.9 % Low 39.0-50.0 [facility] Comment on above: Order Comment: No: D o not add to previous drawPt not in room rn will return when back. Performed By: #### 8 [id number] #### [facility] [address] [place] [address], [facility] Hemoglobin (Bld) [Mass/Vol] 9.9 g/dL Low 13.0-17.0 [facility] Comment on above: Order Comment: No: D o not add to previous drawPt not in room rn will return when back. Performed By: #### 8 [id number] #### [facility] [address] [facility] [place] [address], [facility] MCH (RBC) [Entitic mass] 26.9 pg Low 27.0-33.0 [facility] Comment on above: Order Comment: No: D o not add to previous drawPt not in room rn will return when back. Performed By: #### 8 5499 #### [facility] [address] [facility] [address] MCHC (RBC) [Mass/Vol] 29.2 g/dL Low 32.0-35.0 [facility] Comment on above: Order Comment: No: D o not add to previous drawPt not in room rn will return when back. Performed By: #### 8 5499 #### [facility] [address] [facility] [place] [address], [facility] MCV (RBC) [Entitic vol] 92.1 fL Normal 82.0-98.0 [facility] Comment on above: Order Comment: No: D o not add to previous drawPt not in room rn will return when back. Performed By: #### 8 5499 #### [facility] [address] [facility] [place] [address], [facility] Nucleated RBC/100 WBC (Bld) [Ratio] 0 % Normal 0-0 [facility] Comment on above: Order Comment: No: D o not add to previous drawPt not in room rn will return when back. Performed By: #### 8 5499 #### [facility] [address] [place] [address], [facility] PLAT CNT 288 10*3/uL Normal 150-400 [facility] Comment on above: Order Comment: No: D o not add to previous drawPt not in room rn will return when back. Performed By: #### 8 5499 #### [address] RBC (Bld) [#/Vol] 3.68 10*6/uL Low 4.20-5.70 [facility] Comment on above: Order Comment: No: D o not add to previous drawPt not in room rn will return when back. Performed By: #### 8 5499 #### [place] [address], [facility] WBC (Bld) [#/Vol] 9.51 10*3/uL Normal 4.00-10.60 [facility] Comment on above: Order Comment: No: D o not add to previous drawPt not in room rn will return when back. Performed By: #### 8 [id number] #### [address] CHEST WO CONTRASTon 07-21 CT CHEST WO CONTRAST [facility] Department of Radiology [address] [place] [id number] Patient Name: RASHARD LYMAN : 1960 Sex: M Age: Race: White Pt. Location: [id number] Patient Status: I Ordered Date: 07/21/2020 6:00:00 [...] pneumonia. Electronically signed: Manuel Saldaña. Transcribed by: [email or web address], User Resident: Electronically Signed by: MANUEL SALDAÑA @ 07/21/2020 08:38 AM Normal [facility] Comment on above: Order Comment: Left Peural Effusion POC GLUCOSE LABon 07-21-2020 Glucose [Mass/Vol] 134 mg/dL High 70-100 [facility] Comment on above: Performed By: #### 5 0103 #### [facility] [address] [place] [address], [place] Glucose [Mass/Vol] 88 mg/dL Normal 70-100 [facility] Comment on above: Performed By: #### 8 5499 #### [facility] [address] [place] [address], [place] Glucose [Mass/Vol] 110 mg/dL High 70-100 [facility] Comment on above: Performed By: #### 8 5499 #### [facility] [address] [place] [address], [place] Glucose [Mass/Vol] 118 mg/dL High 70-100 [facility] Comment on above: Performed By: #### 5 7307, [id number] #### [facility] [address] [place] [address], [place] Glucose [Mass/Vol] 137 mg/dL High 70-100 [facility] Comment on above: Performed By: #### 5 7307, 02644 #### [facility] [address] [place] [address], [place] BASIC METABOLIC PANELon 03-2 Calcium [Mass/Vol] 8.4 mg/dL Low 8.6-10.3 [facility] Comment on above: Order Comment: No: D o not add to previous draw Performed By: #### 8 5499 #### [facility] [address] [place] [address], [place] Chloride [Moles/Vol] 107 mmol/L Normal 98-107 [facility] Comment on above: Order Comment: No: D o not add to previous draw Performed By: #### 8 5499 #### [facility] [address] [place] [address], [place] CO2 [Moles/Vol] 23 mmol/L Normal 21-31 [facility] Comment on above: Order Comment: No: D o not add to previous draw Performed By: #### 8 5499 #### [facility] [address] [place] [address], [facility] Creatinine [Mass/Vol] 3.95 mg/dL High 0.70-1.30 [facility] Comment on above: Order Comment: No: D o not add to previous draw Performed By: #### 8 5499 #### [facility] [address] [place] [address], [facility] eGFR- 19 ml/min/1.73sq m Abnormal >60 [facility] Comment on above: Order Comment: No: D o not add to previous draw Performed By: #### 8 5499 #### [facility] [address] [place] [address], [facility] eGFR- non- 16 ml/min/1.73sq m Abnormal >60 [facility] Comment on above: Order Comment: No: D o not add to previous draw Performed By: #### 8 5499 #### [facility] [address] [place] [address], [place] Glucose [Mass/Vol] 110 mg/dL High 70-100 [facility] Comment on above: Order Comment: No: D o not add to previous draw Performed By: #### 8 5499 #### [facility] [address] [place] [address], [place] Potassium [Moles/Vol] 4.9 mmol/L Normal 3.5-5.1 [facility] Comment on above: Order Comment: No: D o not add to previous draw Performed By: #### 8 5499 #### [facility] [address] [place] [address], [place] Sodium [Moles/Vol] 137 mmol/L Normal 136-145 [facility] Comment on above: Order Comment: No: D o not add to previous draw Performed By: #### 8 5499 #### [facility] [address] [place] [address], [facility] Urea nitrogen [Mass/Vol] 37 mg/dL High 7-25 [facility] Comment on above: Order Comment: No: D o not add to previous draw Performed By: #### 8 5499 #### [facility] [address] [facility] [place] [address], [facility] CBC W/DIFFon 07-20-2020 ABS IMM GRANS 0.1 10*3/uL Normal 0.0-0.2 [facility] Comment on above: Order Comment: No: D o not add to previous draw Performed By: #### 8 5499 #### [facility] [address] [place] [address], [facility] ABS NEUTROPHILS 5.9 10*3/uL Normal 1.6-7.6 [facility] Comment on above: Order Comment: No: D o not add to previous draw Performed By: #### 8 5499 #### [facility] [address] [facility] [place] [address], [facility] Basophils (Bld) [#/Vol] 0.1 10*3/uL Normal 0.0-0.2 [facility] Comment on above: Order Comment: No: D o not add to previous draw Performed By: #### 8 5499 #### [facility] [address] [facility] [place] [address], [facility] Basophils/100 WBC (Bld) 1.0 % Normal 0.0-1.0 [facility] Comment on above: Order Comment: No: D o not add to previous draw Performed By: #### 8 5499 #### [facility] [address] [place] [address], [facility] Eosinophils (Bld) [#/Vol] 0.4 10*3/uL Normal 0.0-0.5 [facility] Comment on above: Order Comment: No: D o not add to previous draw Performed By: #### 8 5499 #### [facility] [address] [place] [address], [facility] Eosinophils/100 WBC (Bld) 5.1 % Normal 0.0-6.0 [facility] Comment on above: Order Comment: No: D o not add to previous draw Performed By: #### 8 5499 #### [facility] [address] [place] [address], [facility] Erythrocyte distribution width (RBC) [Ratio] 15.4 % High 11.5-15.0 [facility] Comment on above: Order Comment: No: D o not add to previous draw Performed By: #### 8 5499 #### [facility] [address] [place] [address], [facility] Hematocrit (Bld) [Volume fraction] 35.7 % Low 39.0-50.0 [facility] Comment on above: Order Comment: No: D o not add to previous draw Performed By: #### 8 5499 #### [facility] [address] [place] [address], [facility] Hemoglobin (Bld) [Mass/Vol] 10.3 g/dL Low 13.0-17.0 [facility] Comment on above: Order Comment: No: D o not add to previous draw Performed By: #### 8 5499 #### [facility] [address] [facility] [place] [address], [facility] IMM PLATELET FRAC 0.4 % Low 0.8-6.3 [facility] Comment on above: Order Comment: No: D o not add to previous draw Performed By: #### 8 5499 #### [facility] [address] [place] [address], [facility] IMMATURE GRANS 1.1 % High 0.0-1.0 [facility] Comment on above: Order Comment: No: D o not add to previous draw Performed By: #### 8 5499 #### [facility] [address] [place] [address], [facility] Lymphocytes (Bld) [#/Vol] 0.8 10*3/uL Low 1.2-4.0 [facility] Comment on above: Order Comment: No: D o not add to previous draw Performed By: #### 8 5499 #### [facility] [address] [place] [address], [facility] Lymphocytes/100 WBC (Bld) 9.3 % Low 20.0-45.0 [facility] Comment on above: Order Comment: No: D o not add to previous draw Performed By: #### 8 5499 #### [facility] [address] [place] [address], [facility] MCH (RBC) [Entitic mass] 27.4 pg Normal 27.0-33.0 [facility] Comment on above: Order Comment: No: D o not add to previous draw Performed By: #### 8 5499 #### [facility] [address] [facility] [place] [address], [facility] MCHC (RBC) [Mass/Vol] 28.9 g/dL Low 32.0-35.0 [facility] Comment on above: Order Comment: No: D o not add to previous draw Performed By: #### 8 5499 #### [facility] [address] [place] [address], [facility] MCV (RBC) [Entitic vol] 94.9 fL Normal 82.0-98.0 [facility] Comment on above: Order Comment: No: D o not add to previous draw Performed By: #### 8 5499 #### [facility] [address] [place] [address], [facility] Monocytes (Bld) [#/Vol] 1.1 10*3/uL High 0.1-1.0 [facility] Comment on above: Order Comment: No: D o not add to previous draw Performed By: #### 8 5499 #### [facility] [address] [facility] [place] [address], [place] MONOS 12.9 % High 5.0-12.0 [facility] Comment on above: Order Comment: No: D o not add to previous draw Performed By: #### 8 5499 #### [facility] [address] [place] [address], [place] Neutrophils/100 WBC (Bld) 70.6 % Normal 40.0-72.0 [facility] Comment on above: Order Comment: No: D o not add to previous draw Performed By: #### 8 5499 #### [facility] [address] [place] [address], [place] Nucleated RBC/100 WBC (Bld) [Ratio] 0 % Normal 0-0 [facility] Comment on above: Order Comment: No: D o not add to previous draw Performed By: #### 8 5499 #### [facility] [address] [place] [address], [place] PLAT ESTIMATE Normal Normal [facility] Comment on above: Order Comment: No: D o not add to previous draw Result Comment: EDTA smear shows platelet clumping, see platelet estimate Performed By: #### 8 [id number] #### [facility] [address] [place] [address], [place] RBC (Bld) [#/Vol] 3.76 10*6/uL Low 4.20-5.70 [facility] Comment on above: Order Comment: No: D o not add to previous draw Performed By: #### 8 5499 #### [facility] [address] [place] [address], [place] WBC (Bld) [#/Vol] 8.30 10*3/uL Normal 4.00-10.60 [facility] Comment on above: Order Comment: No: D o not add to previous draw Performed By: #### 8 5499 #### [facility] [address] [place] [address], [place] POC GLUCOSE LABon 07-20-2020 Glucose [Mass/Vol] 110 mg/dL High 70-100 [facility] Comment on above: Performed By: #### 5 0103 #### [facility] [address] [facility] [place] [address], [facility] Glucose [Mass/Vol] 124 mg/dL High 70-100 [facility] Comment on above: Performed By: #### 5 0103 #### [facility] [address] [facility] [place] [address], [facility] Glucose [Mass/Vol] 111 mg/dL High 70-100 [facility] Comment on above: Performed By: #### 5 7307, [address] #### [address] [address], [facility] PORTABLE CHEST 1 VIEWon 06-28 PORTABLE CHEST 1 VIEW [facility] Department of Radiology [address] [place] [id number] Patient Name: RASHARD LYMAN : 1960 Sex: M Age: Race: White Pt. Location: [id number] Patient Status: I Ordered Date: 07/20/2020 6:00:00 [...] unchanged Electronically signed: Manuel Saldaña. Transcribed by: [email or web address], User Resident: Electronically Signed by: MANUEL SALDAÑA @ 07/20/2020 09:07 AM Normal [facility] Comment on above: Order Comment: Evalu ate for Effusion BASIC METABOLIC PANELon 03- Calcium [Mass/Vol] 8.4 mg/dL Low 8.6-10.3 [facility] Comment on above: Order Comment: No: D o not add to previous draw Performed By: #### 3 1943 #### [facility] [address] [place] [address], [place] Chloride [Moles/Vol] 104 mmol/L Normal 98-107 [facility] Comment on above: Order Comment: No: D o not add to previous draw Performed By: #### 3 1943 #### [facility] [address] [place] [address], [place] CO2 [Moles/Vol] 24 mmol/L Normal 21-31 [facility] Comment on above: Order Comment: No: D o not add to previous draw Performed By: #### 3 1943 #### [facility] [address] [place] [address], [place] Creatinine [Mass/Vol] 4.15 mg/dL High 0.70-1.30 [facility] Comment on above: Order Comment: No: D o not add to previous draw Performed By: #### 3 1943 #### [facility] [address] [place] [address], [facility] eGFR- 18 ml/min/1.73sq m Abnormal >60 [facility] Comment on above: Order Comment: No: D o not add to previous draw Performed By: #### 3 1943 #### [facility] [address] [place] [address], [place] eGFR- non- 15 ml/min/1.73sq m Abnormal >60 [facility] Comment on above: Order Comment: No: D o not add to previous draw Performed By: #### 3 1943 #### [facility] [address] [place] [address], [place] Glucose [Mass/Vol] 180 mg/dL High 70-100 [facility] Comment on above: Order Comment: No: D o not add to previous draw Performed By: #### 3 1943 #### [facility] [address] [place] [address], [place] Potassium [Moles/Vol] 4.4 mmol/L Normal 3.5-5.1 [facility] Comment on above: Order Comment: No: D o not add to previous draw Performed By: #### 3 1943 #### [facility] [address] [place] [address], [place] Sodium [Moles/Vol] 135 mmol/L Low 136-145 [facility] Comment on above: Order Comment: No: D o not add to previous draw Performed By: #### 3 1943 #### [facility] [address] [place] [address], [place] Urea nitrogen [Mass/Vol] 37 mg/dL High 7-25 [facility] Comment on above: Order Comment: No: D o not add to previous draw Performed By: #### 3 1943 #### [facility] [address] [place] [address], [facility] CBC COMPLETE BLOOD COUNTon 07-19-2020 Erythrocyte distribution width (RBC) [Ratio] 14.8 % Normal 11.5-15.0 [facility] Comment on above: Order Comment: No: D o not add to previous draw Performed By: #### 8 [id number] #### [facility] [address] [place] [address], [facility] Hematocrit (Bld) [Volume fraction] 30.9 % Low 39.0-50.0 [facility] Comment on above: Order Comment: No: D o not add to previous draw Performed By: #### 8 [id number] #### [facility] [address] [place] [id number], [facility] Hemoglobin (Bld) [Mass/Vol] 9.0 g/dL Low 13.0-17.0 [facility] Comment on above: Order Comment: No: D o not add to previous draw Performed By: #### 8 [id number] #### [facility] [address] [place] [address], [facility] MCH (RBC) [Entitic mass] 26.6 pg Low 27.0-33.0 [facility] Comment on above: Order Comment: No: D o not add to previous draw Performed By: #### 8 [id number] #### [facility] [address] [place] [address], [facility] MCHC (RBC) [Mass/Vol] 29.1 g/dL Low 32.0-35.0 [facility] Comment on above: Order Comment: No: D o not add to previous draw Performed By: #### 8 [id number] #### [facility] [address] [place] [id number], [facility] MCV (RBC) [Entitic vol] 91.4 fL Normal 82.0-98.0 [facility] Comment on above: Order Comment: No: D o not add to previous draw Performed By: #### 8 [id number] #### [facility] [address] [place] [address], [facility] Nucleated RBC/100 WBC (Bld) [Ratio] 0 % Normal 0-0 [facility] Comment on above: Order Comment: No: D o not add to previous draw Performed By: #### 8 [id number] #### [facility] [address] [facility] [place] [address], [facility] PLAT CNT 279 10*3/uL Normal 150-400 [facility] Comment on above: Order Comment: No: D o not add to previous draw Performed By: #### 8 [id number] #### [facility] [address] [facility] [place] [address], [facility] RBC (Bld) [#/Vol] 3.38 10*6/uL Low 4.20-5.70 [facility] [facility] Comment on above: Order Comment: No: D o not add to previous draw Performed By: #### 8 [id number] #### [facility] [address] [facility] [place] [address], [facility] WBC (Bld) [#/Vol] 6.73 10*3/uL Normal 4.00-10.60 [facility] Comment on above: Order Comment: No: D o not add to previous draw Performed By: #### 8 [id number] #### [facility] [address] [facility]. [address] Operative Reporton Operative Report MR#: [id number] I [facility] Pt. Name: [facility] Room #: [id number] Discharge Date: Birthdate: 1960 OPERATIVE REPORT DATE OF SURGERY: 07/19/2020 SURGEON: Nima Wynne MD Operative Note Medical Thoracoscopy, lysis of adhesions, pleural biopsy Procedure Date: 07/19/2020 Procedure: Medical Thoracoscopy, pleural biopsies, lysis of adhesions, and chest tube placement Preoperative Diagnosis: Loculated pleural effusion Post-operative Diagnosis: same Surgeons: Nima Wynne MD Electric Truck Operator: Davis Pham MD Type of Anesthesia: MAC [...] Wynne MD Date Trans: 07/19/2020 02:43 P/ [id number] cc: Jose Juarez D.O. [address] [facility] [place] [address] Normal [facility] POC GLUCOSE LABon 07-19-2020 Glucose [Mass/Vol] 219 mg/dL High 70-100 [facility] Comment on above: Performed By: #### 5 7307, 37081 #### [facility] [address] [facility] [place] [address], [place] Glucose [Mass/Vol] 152 mg/dL High 70-100 [facility] Comment on above: Performed By: #### 5 7307, 12133 #### [facility] [address] [facility] [place] [address], [place] Glucose [Mass/Vol] 183 mg/dL High 70-100 [facility] Comment on above: Performed By: #### 5 0103 #### [facility] [address] [facility] [place] [address], [place] Glucose [Mass/Vol] 206 mg/dL High 70-100 [facility] Comment on above: Performed By: #### 8 5499 ####[facility] [facility] [place] [address], [place] Glucose [Mass/Vol] 179 mg/dL High 70-100 [facility] Comment on above: Performed By: #### 5 0103 #### [facility] [address] [facility] [place] [address], [facility] PORTABLE CHEST 1 VIEWon 06-28 PORTABLE CHEST 1 VIEW [facility] Department of Radiology [address] [place] [id number] Patient Name: RASHARD LYMAN : 1960 Sex: M Age: Race: White Pt. Location: [address] [place] [address] Patient Status: I Ordered Date: 07/19/2020 2:20:00 [...] infiltration Electronically signed: Pedro Baldwin. Transcribed by: [email or web address], User Resident: PEDRO BALDWIN Electronically Signed by: PEDRO BALDWIN @ 07/19/2020 03:03 PM I personally read this/these film(s) with this resident Normal [facility] Comment on above: Order Comment: Check Chest Tube Position BASIC METABOLIC PANELon - Calcium [Mass/Vol] 8.4 mg/dL Low 8.6-10.3 [facility] Comment on above: Order Comment: No: D o not add to previous draw Performed By: #### 8 [id number] #### [facility] [address] [place] [address], [place] Chloride [Moles/Vol] 105 mmol/L Normal 98-107 [facility] Comment on above: Order Comment: No: D o not add to previous draw Performed By: #### 8 5499 #### [facility] [address] [place] [address], [place] CO2 [Moles/Vol] 25 mmol/L Normal 21-31 [facility] Comment on above: Order Comment: No: D o not add to previous draw Performed By: #### 8 5499 #### [facility] [address] [place] [address], [place] Creatinine [Mass/Vol] 4.54 mg/dL High 0.70-1.30 [facility] Comment on above: Order Comment: No: D o not add to previous draw Performed By: #### 8 5499 #### [facility] [address] [place] [address], [place] eGFR- 16 ml/min/1.73sq m Abnormal >60 [facility] Comment on above: Order Comment: No: D o not add to previous draw Performed By: #### 8 5499 #### [facility] [address] [place] [address], [place] eGFR- non- 13 ml/min/1.73sq m Abnormal >60 [facility] Comment on above: Order Comment: No: D o not add to previous draw Performed By: #### 8 5499 #### [facility] [address] [place] [address], [place] Glucose [Mass/Vol] 118 mg/dL High 70-100 [facility] Comment on above: Order Comment: No: D o not add to previous draw Performed By: #### 8 5499 #### [facility] [address] [place] [address], [place] Potassium [Moles/Vol] 4.5 mmol/L Normal 3.5-5.1 [facility] Comment on above: Order Comment: No: D o not add to previous draw Performed By: #### 8 5499 #### [facility] [address] [place] [address], [facility] Sodium [Moles/Vol] 137 mmol/L Normal 136-145 [facility] Comment on above: Order Comment: No: D o not add to previous draw Performed By: #### 8 5499 #### [facility] [address] [facility] [address] Urea nitrogen [Mass/Vol] 40 mg/dL High 7-25 [facility] Comment on above: Order Comment: No: D o not add to previous draw Performed By: #### 8 5499 #### [facility] [address] [facility] [place] [address], [facility] CBC W/DIFFon 07-18-2020 ABS IMM GRANS 0.1 10*3/uL Normal 0.0-0.2 [facility] Comment on above: Order Comment: No: D o not add to previous draw Performed By: #### 8 [id number] #### [facility] [address] [facility] [place] [address], [facility] ABS NEUTROPHILS 5.0 10*3/uL Normal 1.6-7.6 [facility] Comment on above: Order Comment: No: D o not add to previous draw Performed By: #### 8 5499 #### [facility] [address] [facility] [place] [address], [facility] Basophils (Bld) [#/Vol] 0.0 10*3/uL Normal 0.0-0.2 [facility] Comment on above: Order Comment: No: D o not add to previous draw Performed By: #### 8 5499 #### [facility] [address] [place] [address], [facility] Basophils/100 WBC (Bld) 0.4 % Normal 0.0-1.0 [facility] Comment on above: Order Comment: No: D o not add to previous draw Performed By: #### 8 5499 #### [facility] [address] [place] [id number], [facility] Eosinophils (Bld) [#/Vol] 0.6 10*3/uL High 0.0-0.5 [facility] Comment on above: Order Comment: No: D o not add to previous draw Performed By: #### 8 5499 #### [facility] [address] [place] [address], [facility] Eosinophils/100 WBC (Bld) 6.8 % High 0.0-6.0 [facility] Comment on above: Order Comment: No: D o not add to previous draw Performed By: #### 8 5499 #### [facility] [address] [place] [address], [facility] Erythrocyte distribution width (RBC) [Ratio] 14.8 % Normal 11.5-15.0 [facility] Comment on above: Order Comment: No: D o not add to previous draw Performed By: #### 8 5499 #### [facility] [address] [place] [address], [facility] Hematocrit (Bld) [Volume fraction] 31.9 % Low 39.0-50.0 [facility] Comment on above: Order Comment: No: D o not add to previous draw Performed By: #### 8 5499 #### [facility] [address] [place] [id number], [facility] Hemoglobin (Bld) [Mass/Vol] 9.4 g/dL Low 13.0-17.0 [facility] Comment on above: Order Comment: No: D o not add to previous draw Performed By: #### 8 5499 #### [facility] [address] [place] [id number], [facility] IMMATURE GRANS 1.7 % High 0.0-1.0 [facility] Comment on above: Order Comment: No: D o not add to previous draw Performed By: #### 8 5499 #### [facility] [address] [place] [id number], [facility] Lymphocytes (Bld) [#/Vol] 1.2 10*3/uL Normal 1.2-4.0 [facility] Comment on above: Order Comment: No: D o not add to previous draw Performed By: #### 8 5499 #### [facility] [address] [place] [address], [facility] Lymphocytes/100 WBC (Bld) 14.8 % Low 20.0-45.0 [facility] Comment on above: Order Comment: No: D o not add to previous draw Performed By: #### 8 [id number] #### [facility] [address] [facility] [place] [address], [facility] MCH (RBC) [Entitic mass] 26.9 pg Low 27.0-33.0 [facility] Comment on above: Order Comment: No: D o not add to previous draw Performed By: #### 8 5499 #### [facility] [address] [place] [address], [facility] MCHC (RBC) [Mass/Vol] 29.5 g/dL Low 32.0-35.0 [facility] Comment on above: Order Comment: No: D o not add to previous draw Performed By: #### 8 [id number] #### [facility] [address] [place] [id number], [facility] MCV (RBC) [Entitic vol] 91.1 fL Normal 82.0-98.0 [facility] Comment on above: Order Comment: No: D o not add to previous draw Performed By: #### 8 5499 #### [facility] [address] [place] [address], [facility] Monocytes (Bld) [#/Vol] 1.1 10*3/uL High 0.1-1.0 [facility] Comment on above: Order Comment: No: D o not add to previous draw Performed By: #### 8 5499 #### [facility] [address] [place] [address], [facility] MONOS 13.4 % High 5.0-12.0 [facility] Comment on above: Order Comment: No: D o not add to previous draw Performed By: #### 8 5499 #### [facility] [address] [place] [address], [place] Neutrophils/100 WBC (Bld) 62.9 % Normal 40.0-72.0 [facility] Comment on above: Order Comment: No: D o not add to previous draw Performed By: #### 8 5499 #### [facility] [address] [place] [address], [facility] Nucleated RBC/100 WBC (Bld) [Ratio] 0 % Normal 0-0 [facility] Comment on above: Order Comment: No: D o not add to previous draw Performed By: #### 8 [id number] #### [facility] [address] [facility] [place] [address], [place] PLAT CNT 296 10*3/uL Normal 150-400 [facility] Comment on above: Order Comment: No: D o not add to previous draw Performed By: #### 8 5499 #### [facility] [address] [place] [address], [facility] RBC (Bld) [#/Vol] 3.50 10*6/uL Low 4.20-5.70 [facility] Comment on above: Order Comment: No: D o not add to previous draw Performed By: #### 8 5499 #### [facility] [address] [place] [address], [place] WBC (Bld) [#/Vol] 8.03 10*3/uL Normal 4.00-10.60 [facility] Comment on above: Order Comment: No: D o not add to previous draw Performed By: #### 8 5499 #### [facility] [address] [place] [address], [place] POC GLUCOSE LABon 07-18-2020 Glucose [Mass/Vol] 192 mg/dL High 70-100 [facility] Comment on above: Performed By: #### 5 7307, 34284 #### [facility] [address] [place] [address], [place] Glucose [Mass/Vol] 153 mg/dL High 70-100 [facility] Comment on above: Performed By: #### 5 7307, 29277 #### [facility] [address] [place] [address], [place] Glucose [Mass/Vol] 80 mg/dL Normal 70-100 [facility] Comment on above: Performed By: #### 5 7307, 49463 #### [facility] [address] [place] [address], [place] Glucose [Mass/Vol] 48 mg/dL Critically low 70-100 [facility] Comment on above: Order Comment: Left Peural Effusion Performed By: #### 8 [id number] ####[facility] [place] [address], [place] Glucose [Mass/Vol] 120 mg/dL High 70-100 [facility] Comment on above: Performed By: #### 5 0103 #### [facility] [address] [place] [address], [place] Glucose [Mass/Vol] 112 mg/dL High 70-100 [facility] Comment on above: Performed By: #### 5 7307, 23909 #### [facility] [address] [place] [address], [place] POC SARS COV2 ANTIGEN NEGATI VEon 07-18-2020 POC SARS COV2 ANTIGEN NEG CANCELED Normal NEGATIVE [facility] Comment on above: Result Comment: The released value NEGATIVE was canceled by [facility]ISES on 07/19/2020 07:11 Performed By: #### 3 1943 #### [facility] [address] [facility]. [address] POC SARS COV2 ANTIGEN NEG Negative Normal NEGATIVE [facility] Comment on above: Result Comment: [...] signs and symptoms consistent with COVID-19. The [facility] COVID-19 Antigen test is a lateral flow [...] Accreditation. Performed By: #### 8 [id number] #### [facility] [address] [facility]. [address] BASIC METABOLIC PANELon 03- Calcium [Mass/Vol] 8.2 mg/dL Low 8.6-10.3 [facility] Comment on above: Order Comment: No: D o not add to previous draw Performed By: #### 3 1943 #### [facility] [address] [facility] [place] [address], [facility] Chloride [Moles/Vol] 101 mmol/L Normal 98-107 [facility] Comment on above: Order Comment: No: D o not add to previous draw Performed By: #### 3 1943 #### [facility] [address] [place] [address], [place] CO2 [Moles/Vol] 25 mmol/L Normal 21-31 [facility] Comment on above: Order Comment: No: D o not add to previous draw Performed By: #### 3 1943 #### [facility] [address] [place] [address], [place] Creatinine [Mass/Vol] 3.64 mg/dL High 0.70-1.30 [facility] Comment on above: Order Comment: No: D o not add to previous draw Performed By: #### 3 1943 #### [facility] [address] [place] [address], [place] eGFR- 21 ml/min/1.73sq m Abnormal >60 [facility] Comment on above: Order Comment: No: D o not add to previous draw Performed By: #### 3 1943 #### [facility] [address] [place] [address], [place] eGFR- non- 17 ml/min/1.73sq m Abnormal >60 [facility] Comment on above: Order Comment: No: D o not add to previous draw Performed By: #### 3 1943 #### [facility] [address] [place] [address], [place] Glucose [Mass/Vol] 124 mg/dL High 70-100 [facility] Comment on above: Order Comment: No: D o not add to previous draw Performed By: #### 3 1943 #### [facility] [address] [place] [address], [place] Potassium [Moles/Vol] 4.3 mmol/L Normal 3.5-5.1 [facility] Comment on above: Order Comment: No: D o not add to previous draw Performed By: #### 3 1943 #### [facility] [address] [place] [address], [facility] Sodium [Moles/Vol] 134 mmol/L Low 136-145 [facility] Comment on above: Order Comment: No: D o not add to previous draw Performed By: #### 3 1943 #### [facility] [address] [place] [address], [facility] Urea nitrogen [Mass/Vol] 36 mg/dL High 7-25 [facility] Comment on above: Order Comment: No: D o not add to previous draw Performed By: #### 3 1943 #### [facility] [address] [facility] [place] [address], [facility] CBC W/DIFFon 07-17-2020 ABS IMM GRANS 0.2 10*3/uL Normal 0.0-0.2 [facility] Comment on above: Order Comment: No: D o not add to previous draw Performed By: #### 8 [id number] #### [facility] [address] [place] [address], [facility] ABS NEUTROPHILS 5.8 10*3/uL Normal 1.6-7.6 [facility] Comment on above: Order Comment: No: D o not add to previous draw Performed By: #### 8 5499 #### [facility] [address] [facility] [place] [address], [facility] Basophils (Bld) [#/Vol] 0.1 10*3/uL Normal 0.0-0.2 [facility] Comment on above: Order Comment: No: D o not add to previous draw Performed By: #### 8 5499 #### [facility] [address] [facility] [place] [id number], [facility] Basophils/100 WBC (Bld) 0.6 % Normal 0.0-1.0 [facility] Comment on above: Order Comment: No: D o not add to previous draw Performed By: #### 8 5499 #### [facility] [address] [facility] [place] [address], [facility] Eosinophils (Bld) [#/Vol] 0.6 10*3/uL High 0.0-0.5 [facility] Comment on above: Order Comment: No: D o not add to previous draw Performed By: #### 8 5499 #### [facility] [address] [place] [address], [facility] Eosinophils/100 WBC (Bld) 7.0 % High 0.0-6.0 [facility] Comment on above: Order Comment: No: D o not add to previous draw Performed By: #### 8 5499 #### [facility] [address] [facility] [place] [address], [facility] Erythrocyte distribution width (RBC) [Ratio] 14.8 % Normal 11.5-15.0 [facility] Comment on above: Order Comment: No: D o not add to previous draw Performed By: #### 8 5499 #### [facility] [address] [facility] [place] [address], [facility] Hematocrit (Bld) [Volume fraction] 30.0 % Low 39.0-50.0 [facility] Comment on above: Order Comment: No: D o not add to previous draw Performed By: #### 8 5499 #### [facility] [address] [facility] [place] [address], [facility] Hemoglobin (Bld) [Mass/Vol] 9.2 g/dL Low 13.0-17.0 [facility] Comment on above: Order Comment: No: D o not add to previous draw Performed By: #### 8 5499 #### [facility] [address] [facility] [place] [address], [facility] IMMATURE GRANS 1.7 % High 0.0-1.0 [facility] Comment on above: Order Comment: No: D o not add to previous draw Performed By: #### 8 5499 #### [facility] [address] [facility] Lymphocytes (Bld) [#/Vol] 1.3 10*3/uL Normal 1.2-4.0 [facility] Comment on above: Order Comment: No: D o not add to previous draw Performed By: #### 8 5499 #### [facility] [address] [place] [address], [facility] Lymphocytes/100 WBC (Bld) 14.3 % Low 20.0-45.0 [facility] Comment on above: Order Comment: No: D o not add to previous draw Performed By: #### 8 5499 #### [facility] [address] [place] [address], [facility] MCH (RBC) [Entitic mass] 27.3 pg Normal 27.0-33.0 [facility] Comment on above: Order Comment: No: D o not add to previous draw Performed By: #### 8 5499 #### [facility] [address] [place] [address], [facility] MCHC (RBC) [Mass/Vol] 30.7 g/dL Low 32.0-35.0 [facility] Comment on above: Order Comment: No: D o not add to previous draw Performed By: #### 8 5499 #### [facility] [address] [place] [address], [facility] MCV (RBC) [Entitic vol] 89.0 fL Normal 82.0-98.0 [facility] Comment on above: Order Comment: No: D o not add to previous draw Performed By: #### 8 5499 #### [facility] [address] [place] [address], [facility] Monocytes (Bld) [#/Vol] 1.0 10*3/uL Normal 0.1-1.0 [facility] Comment on above: Order Comment: No: D o not add to previous draw Performed By: #### 8 5499 #### [facility] [address] [facility] [place] [address], [facility] MONOS 10.9 % Normal 5.0-12.0 [facility] Comment on above: Order Comment: No: D o not add to previous draw Performed By: #### 8 5499 #### [facility] [address] [place] [address], [facility] Neutrophils/100 WBC (Bld) 65.5 % Normal 40.0-72.0 [facility] Comment on above: Order Comment: No: D o not add to previous draw Performed By: #### 8 5499 #### [facility] [address] [place] [id number], [facility] Nucleated RBC/100 WBC (Bld) [Ratio] 0 % Normal 0-0 [facility] Comment on above: Order Comment: No: D o not add to previous draw Performed By: #### 8 5499 #### [facility] [address] [place] [address], [place] PLAT CNT 293 10*3/uL Normal 150-400 [facility] Comment on above: Order Comment: No: D o not add to previous draw Performed By: #### 8 5499 #### [facility] [address] [facility] [place] [id number], [facility] RBC (Bld) [#/Vol] 3.37 10*6/uL Low 4.20-5.70 [facility] Comment on above: Order Comment: No: D o not add to previous draw Performed By: #### 8 5499 #### [facility] [address] [place] [address], [place] WBC (Bld) [#/Vol] 8.86 10*3/uL Normal 4.00-10.60 [facility] Comment on above: Order Comment: No: D o not add to previous draw Performed By: #### 8 5499 #### [facility] [address] [place] [address], [facility] POC GLUCOSE LABon 07-17-2020 Glucose [Mass/Vol] 101 mg/dL High 70-100 [facility] Comment on above: Performed By: #### 5 7307, 67905 #### [facility] [address] [place] [address], [place] Glucose [Mass/Vol] 76 mg/dL Normal 70-100 [facility] Comment on above: Performed By: #### 5 7307, 90413 #### [facility] [address] [place] [address], [place] Glucose [Mass/Vol] 75 mg/dL Normal 70-100 [facility] Comment on above: Performed By: #### 8 5499 ####[facility] [place] [address], [place] Glucose [Mass/Vol] 198 mg/dL High 70-100 [facility] Comment on above: Performed By: #### 8 5499 ####[facility] [place] [address], [place] Glucose [Mass/Vol] 205 mg/dL High 70-100 [facility] Comment on above: Performed By: #### 3 0318 #### [facility] [address] [place] [address], [place] Glucose [Mass/Vol] 187 mg/dL High 70-100 [facility] Comment on above: Performed By: #### 5 7307, 22456 #### [facility] [address] [place] [address], [place] Glucose [Mass/Vol] 131 mg/dL High 70-100 [facility] Comment on above: Performed By: #### 8 5499 #### [facility] [address] [place] [address], [place] Glucose [Mass/Vol] 75 mg/dL Normal 70-100 [facility] Comment on above: Performed By: #### 5 0103 #### [facility] [address] [place] [address], [place] Glucose [Mass/Vol] 69 mg/dL Low 70-100 [facility] Comment on above: Performed By: #### 8 5499 ####[facility] [place] [address], [place] BASIC METABOLIC PANELon 03-2 -2020 Calcium [Mass/Vol] 8.4 mg/dL Low 8.6-10.3 [facility] Comment on above: Order Comment: No: D o not add to previous draw Performed By: #### 3 1943 #### [facility] [address] [place] [address], [place] Chloride [Moles/Vol] 105 mmol/L Normal 98-107 [facility] Comment on above: Order Comment: No: D o not add to previous draw Performed By: #### 3 1943 #### [facility] [address] [place] [address], [place] CO2 [Moles/Vol] 24 mmol/L Normal 21-31 [facility] Comment on above: Order Comment: No: D o not add to previous draw Performed By: #### 3 1943 #### [facility] [address] [place] [address], [place] Creatinine [Mass/Vol] 4.14 mg/dL High 0.70-1.30 [facility] Comment on above: Order Comment: No: D o not add to previous draw Performed By: #### 3 1943 #### [facility] [address] [place] [address], [place] eGFR- 18 ml/min/1.73sq m Abnormal >60 [facility] Comment on above: Order Comment: No: D o not add to previous draw Performed By: #### 3 1943 #### [facility] [address] [place] [address], [place] eGFR- non- 15 ml/min/1.73sq m Abnormal >60 [facility] Comment on above: Order Comment: No: D o not add to previous draw Performed By: #### 3 1943 #### [facility] [address] [place] [address], [place] Glucose [Mass/Vol] 127 mg/dL High 70-100 [facility] Comment on above: Order Comment: No: D o not add to previous draw Performed By: #### 3 1943 #### [facility] [address] [place] [address], [place] Potassium [Moles/Vol] 4.0 mmol/L Normal 3.5-5.1 [facility] Comment on above: Order Comment: No: D o not add to previous draw Performed By: #### 3 1943 #### [facility] [address] [place] [address], [place] Sodium [Moles/Vol] 136 mmol/L Normal 136-145 [facility] Comment on above: Order Comment: No: D o not add to previous draw Performed By: #### 3 1943 #### [facility] [address] [place] [address], [facility] Urea nitrogen [Mass/Vol] 35 mg/dL High 7-25 [facility] Comment on above: Order Comment: No: D o not add to previous draw Performed By: #### 3 1943 #### [facility] [address] [place] [address], [facility] CBC COMPLETE BLOOD COUNTon 0 3- Erythrocyte distribution width (RBC) [Ratio] 14.6 % Normal 11.5-15.0 [facility] Comment on above: Order Comment: No: D o not add to previous draw Performed By: #### 8 [id number] #### [facility] [address] [place] [address], [place] Hematocrit (Bld) [Volume fraction] 31.8 % Low 39.0-50.0 [facility] Comment on above: Order Comment: No: D o not add to previous draw Performed By: #### 8 5499 #### [facility] [address] [place] [address], [facility] Hemoglobin (Bld) [Mass/Vol] 9.7 g/dL Low 13.0-17.0 [facility] Comment on above: Order Comment: No: D o not add to previous draw Performed By: #### 8 5499 #### [facility] [address] [place] [id number], [facility] MCH (RBC) [Entitic mass] 27.2 pg Normal 27.0-33.0 [facility] Comment on above: Order Comment: No: D o not add to previous draw Performed By: #### 8 5499 #### [facility] [address] [place] [id number], [facility] MCHC (RBC) [Mass/Vol] 30.5 g/dL Low 32.0-35.0 [facility] Comment on above: Order Comment: No: D o not add to previous draw Performed By: #### 8 5499 #### [facility] [address] [facility] [place] [address], [facility] MCV (RBC) [Entitic vol] 89.3 fL Normal 82.0-98.0 [facility] Comment on above: Order Comment: No: D o not add to previous draw Performed By: #### 8 5499 #### [facility] [address] [facility] [place] [address], [facility] Nucleated RBC/100 WBC (Bld) [Ratio] 0 % Normal 0-0 [facility] Comment on above: Order Comment: No: D o not add to previous draw Performed By: #### 8 5499 #### [facility] [address] [place] [id number], [facility] PLAT CNT 321 10*3/uL Normal 150-400 [facility] Comment on above: Order Comment: No: D o not add to previous draw Performed By: #### 8 5499 #### [facility] [address] [place] [address], [place] RBC (Bld) [#/Vol] 3.56 10*6/uL Low 4.20-5.70 [facility] Comment on above: Order Comment: No: D o not add to previous draw Performed By: #### 8 5499 #### [facility] [address] [place] [address], [place] WBC (Bld) [#/Vol] 8.88 10*3/uL Normal 4.00-10.60 [facility] Comment on above: Order Comment: No: D o not add to previous draw Performed By: #### 8 5499 #### [facility] [address] [place] [address], [place] POC GLUCOSE LABon 07-16-2020 Glucose [Mass/Vol] 94 mg/dL Normal 70-100 [facility] Comment on above: Performed By: #### 5 0103 #### [facility] [address] [place] [address], [place] Glucose [Mass/Vol] 62 mg/dL Low 70-100 [facility] Comment on above: Performed By: #### 5 7307, 80814 #### [facility] [address] [place] [address], [place] Glucose [Mass/Vol] 80 mg/dL Normal 70-100 [facility] Comment on above: Performed By: #### 5 7307, 00611 #### [facility] [address] [place] [address], [place] Glucose [Mass/Vol] 99 mg/dL Normal 70-100 [facility] Comment on above: Performed By: #### 8 5499 ####[facility] [place] [address], [place] Glucose [Mass/Vol] 203 mg/dL High 70-100 [facility] Comment on above: Performed By: #### 8 5499 ####[facility] [place] [address], [facility] Glucose [Mass/Vol] 151 mg/dL High 70-100 [facility] Comment on above: Performed By: #### 5 7307, 91358 #### [facility] [address] [place] [address], [facility] ANAon 07-15-2020 KILLIAN SCREEN <1:40 Normal <1:40,1:40 [facility] Comment on above: Order Comment: No: D o not add to previous draw Performed By: #### 8 [id number] #### [facility] [address] ANCA IGG WITH REFLEX [id number] on 07-15-2020 ANCA <1:20 Normal <1:20 [facility] Comment on above: Order Comment: [...] collagen vascular disease or arthritis. Performed By: [facility] [address] [place] [address] Senior Electrical Engineer: Emi Campbell MD BASIC METABOLIC PANELon 06-27 Calcium [Mass/Vol] 8.5 mg/dL Low 8.6-10.3 [facility] Comment on above: Order Comment: No: D o not add to previous draw Performed By: #### 8 5499 #### [facility] [address] [place] [address], [facility] Chloride [Moles/Vol] 103 mmol/L Normal 98-107 [facility] Comment on above: Order Comment: No: D o not add to previous draw Performed By: #### 8 5499 #### [facility] [address] [place] [address], [place] CO2 [Moles/Vol] 23 mmol/L Normal 21-31 [facility] Comment on above: Order Comment: No: D o not add to previous draw Performed By: #### 8 5499 #### [facility] [address] [place] [address], [place] Creatinine [Mass/Vol] 4.38 mg/dL High 0.70-1.30 [facility] Comment on above: Order Comment: No: D o not add to previous draw Performed By: #### 8 5499 #### [facility] [address] [place] [address], [place] eGFR- 17 ml/min/1.73sq m Abnormal >60 [facility] Comment on above: Order Comment: No: D o not add to previous draw Performed By: #### 8 5499 #### [facility] [address] [place] [address], [place] eGFR- non- 14 ml/min/1.73sq m Abnormal >60 [facility] Comment on above: Order Comment: No: D o not add to previous draw Performed By: #### 8 5499 #### [facility] [address] [place] [address], [place] Glucose [Mass/Vol] 154 mg/dL High 70-100 [facility] Comment on above: Order Comment: No: D o not add to previous draw Performed By: #### 8 5499 #### [facility] [address] [place] [address], [place] Potassium [Moles/Vol] 4.5 mmol/L Normal 3.5-5.1 [facility] Comment on above: Order Comment: No: D o not add to previous draw Performed By: #### 8 5499 #### [facility] [address] [place] [address], [place] Sodium [Moles/Vol] 135 mmol/L Low 136-145 [facility] Comment on above: Order Comment: No: D o not add to previous draw Performed By: #### 8 5499 #### [facility] [address] [place] [address], [facility] Urea nitrogen [Mass/Vol] 32 mg/dL High 7-25 [facility] Comment on above: Order Comment: No: D o not add to previous draw Performed By: #### 8 5499 #### [facility] [address] [facility]. [address] C REACTIVE PROTEINon 021 CRP [Mass/Vol] 138.0 mg/L High 0.0-7.0 [facility] Comment on above: Order Comment: FROM [id number] Performed By: #### 8 5499 #### [facility] [address] [place] [address], [facility] CBC W/DIFFon 07-15-2020 ABS IMM GRANS 0.1 10*3/uL Normal 0.0-0.2 [facility] Comment on above: Performed By: #### 5 0103 #### [facility] [address] [facility] [place] [address], [facility] ABS NEUTROPHILS 7.3 10*3/uL Normal 1.6-7.6 [facility] Comment on above: Performed By: #### 5 0103 #### [facility] [address] [facility] [place] [address], [facility] Basophils (Bld) [#/Vol] 0.0 10*3/uL Normal 0.0-0.2 [facility] Comment on above: Performed By: #### 5 0103 #### [facility] [address] [place] [address], [facility] Basophils/100 WBC (Bld) 0.3 % Normal 0.0-1.0 [facility] Comment on above: Performed By: #### 5 0103 #### [facility] [address] [facility]. [address] Eosinophils (Bld) [#/Vol] 0.5 10*3/uL Normal 0.0-0.5 [facility] Comment on above: Performed By: #### 3 #### [facility] [address] Eosinophils/100 WBC (Bld) 5.1 % Normal 0.0-6.0 [facility] Comment on above: Performed By: #### 102 #### [facility] [address] Erythrocyte distribution width (RBC) [Ratio] 14.9 % Normal 11.5-15.0 [facility] Comment on above: Performed By: #### 102 #### [facility] [address] [facility]. [address] Hematocrit (Bld) [Volume fraction] 33.0 % Low 39.0-50.0 [facility] Comment on above: Performed By: #### 102 #### [facility] [address] Hemoglobin (Bld) [Mass/Vol] 9.9 g/dL Low 13.0-17.0 [facility] Comment on above: Performed By: #### 3 #### [facility] [address] IMMATURE GRANS 1.4 % High 0.0-1.0 [facility] Comment on above: Performed By: #### 102 #### [facility] [address] Lymphocytes (Bld) [#/Vol] 1.1 10*3/uL Low 1.2-4.0 [facility] Comment on above: Performed By: #### 102 #### [facility] [address] [facility] [place] [address], [facility] Lymphocytes/100 WBC (Bld) 11.0 % Low 20.0-45.0 [facility] Comment on above: Performed By: #### 5 0103 #### [facility] [address] [facility] [place] [address], [facility] MCH (RBC) [Entitic mass] 27.0 pg Normal 27.0-33.0 [facility] Comment on above: Performed By: #### 5 0103 #### [facility] [address] [facility] [place] [address], [facility] MCHC (RBC) [Mass/Vol] 30.0 g/dL Low 32.0-35.0 [facility] Comment on above: Performed By: #### 5 3 #### [facility] [address] [place] [address], [facility] MCV (RBC) [Entitic vol] 90.2 fL Normal 82.0-98.0 [facility] Comment on above: Performed By: #### 5 3 #### [facility] [address] [place] [address], [facility] Monocytes (Bld) [#/Vol] 1.1 10*3/uL High 0.1-1.0 [facility] Comment on above: Performed By: #### 5 0103 #### [facility] [address] [place] [address], [facility] MONOS 10.9 % Normal 5.0-12.0 [facility] Comment on above: Performed By: #### 5 0103 #### [facility] [address] [place] [address], [facility] Neutrophils/100 WBC (Bld) 71.3 % Normal 40.0-72.0 [facility] Comment on above: Performed By: #### 5 3 #### [facility] [address] [facility] [place] [address], [place] Nucleated RBC/100 WBC (Bld) [Ratio] 0 % Normal 0-0 [facility] Comment on above: Performed By: #### 5 0103 #### [facility] [address] [address], [facility] PLAT CNT 317 10*3/uL Normal 150-400 [facility] Comment on above: Performed By: #### 5 0103 #### [facility] [address] [address], [facility] RBC (Bld) [#/Vol] 3.66 10*6/uL Low 4.20-5.70 [facility] Comment on above: Performed By: #### 5 0103 #### [facility] [address] [facility] [place] [address], [facility] WBC (Bld) [#/Vol] 10.23 10*3/uL Normal 4.00-10.60 [facility] Comment on above: Performed By: #### 5 0103 #### [facility] [address] [place] [address], [facility] COMPLEMENT 307-15-2020 COMPLEMENT 3 108 mg/dL Normal 79-152 [facility] Comment on above: Order Comment: No: D o not add to previous draw Performed By: #### 8 5499 #### [facility] [address] [place] [id number], [facility] COMPLEMENT 4on 07-15-2020 COMPLEMENT 4 31 mg/dL Normal 16-38 [facility] Comment on above: Order Comment: No: D o not add to previous draw Performed By: #### 8 5499 #### [facility] [address] GLOMR BASMT MEMBRon 07-16-19 21 GLOMR BASMT MBRN Negative Abnormal NEGATIVE [facility] Comment on above: Order Comment: No: D o not add to previous draw Result Comment: Note : The performance characteristics of this test were validated by the [facility]. It has not been cleared or approved by the U.S. Food and Drug Administration. The results are not intended to be used as the sole means for clinical diagnosis or patient management decisions. [facility] is authorized under CLIA to perform high-complexity testing. Performed By: #### 8 5499 #### [facility] [address] [facility] [place] [address], [facility] POC GLUCOSE LABon 07-15-2020 Glucose [Mass/Vol] 107 mg/dL High 70-100 [facility] Comment on above: Performed By: #### 5 7307, 14104 #### [facility] [address] [facility] [place] [address], [facility] Glucose [Mass/Vol] 84 mg/dL Normal 70-100 [facility] Comment on above: Performed By: #### 5 0103 #### [facility] [address] [facility] [place] [address], [facility] Glucose [Mass/Vol] 164 mg/dL High 70-100 [facility] Comment on above: Performed By: #### 8 5499 ####[facility] [place] [address], [facility] Glucose [Mass/Vol] 141 mg/dL High 70-100 [facility] Comment on above: Performed By: #### 5 7307, 97599 #### [facility] [address] [facility] [place] [address], [facility] PORTABLE CHEST 1 VIEWon 06-27 PORTABLE CHEST 1 VIEW [facility] Department of Radiology [address] [place] [address] Patient Name: RASHARD LYAMN : 1960 Sex: M Age: Race: White Pt. Location: [address] [place] [address] Patient Status: I Ordered Date: 07/15/2020 7:00:00 [...] exam. Electronically signed: Nir Swartz. Transcribed by: [email or web address], User Resident: Electronically Signed by: NIR SWARTZ @ 07/15/2020 07:34 AM Normal [facility] Comment on above: Order Comment: evalu ate for Effusion *AFB CULTUREon 07-14-2020 *AFB CULTURE Clinical Report: (D) Specimen/Source: FLUID/PLEURAL FLUID Collected: 07/14/2020 13:03 Status: Final Last Updated: 08/26/2020 08:52 (1) Left Peural Effusion AFB (Final) No Acid Fast Bacilli Seen CULT RES (Final) No growth after 42 days of incubation Normal [facility] Comment on above: Order Comment: Left Peural Effusion Performed By: #### 8 5499 #### [facility] [address] *ANAEROBIC CULTUREon 021 *ANAEROBIC CULTURE Clinical Report: (D) Specimen/Source: FLUID/PLEURAL FLUID Collected: 07/14/2020 13:03 Status: Final Last Updated: 07/19/2020 08:08 (1) Left Peural Effusion CULT RES (Final) No Anaerobes Isolated 5 Days Normal [facility] Comment on above: Order Comment: Left Peural Effusion Performed By: #### 8 5499 #### [facility] [address] *BODY FLUID CULTUREon 2020 *BODY FLUID CULTURE Clinical Report: (D) Specimen/Source: FLUID/PLEURAL FLUID Collected: 07/14/2020 13:03 Status: Final Last Updated: 07/19/2020 07:53 (1) Left Peural Effusion GRAM (Final) Polys PRESENT No Bacteria Seen CYTOSPUN (Final) This Gram Stain was done on a cytocentrifuged specimen CULT RES (Final) No Growth Day 5 Normal [facility] Comment on above: Order Comment: Left Peural Effusion Performed By: #### 3 0318 #### [facility] [address] *FUNGAL CULTUREon 07-14-2020 *FUNGAL CULTURE Clinical Report: (D) Specimen/Source: FLUID/PLEURAL FLUID Collected: 07/14/2020 13:03 Status: Final Last Updated: 08/15/2020 08:41 (1) Left Peural Effusion FS (Final) No Yeast or Fungal Elements Seen CULT RES (Final) Culture negative for fungus Normal [facility] Comment on above: Order Comment: Left Peural Effusion Performed By: #### 8 5499 #### [facility] [address] *VIRAL NON RESPIRATORY CULTU REon 07-14-2020 Bacteria identified Cx Nom (Unsp spec) Normal [facility] Comment on above: Order Comment: [...] Linked Virus Inducible S. [place] Normal [facility] Comment on above: Order Comment: Left Peural Effusion Result Comment: Test Performed by [email or web address] [address] - Released 07/20/2020 14:10 Result changed by IF on 07/17/2020 14:17. The previous value was Test Performed by [email or web address] [address] [phone].. Result changed by IF on 07/18/2020 12:17. The previous value was Test Performed by [email or web address] [address] [phone].. Result changed by IF on 07/20/2020 14:10. The previous value was Test Performed by [email or web address] [address] [phone].. REPORT STATUS FINAL 07/20/2020 Normal [facility] Comment on above: Order Comment: Left Peural Effusion Result Comment: Resu lt changed by IF on 07/20/2020 14:10. The previous value was Preliminary. APTTon 07-14-2020 aPTT Coag (Bld) [Time] 41.7 s High 25.0-35.0 [facility] Comment on above: Order Comment: [...] PURPOSE. Performed By: #### 8 5499 #### [facility] [address] [place] [address], [facility] aPTT Coag (Bld) [Time] 44.9 s High 25.0-35.0 [facility] Comment on above: Order Comment: [...] THIS PURPOSE. Performed By: #### 5 7307, 70842 #### [facility] [address] [place] [address], [facility] BASIC METABOLIC PANELon 06-27 Calcium [Mass/Vol] 8.6 mg/dL Normal 8.6-10.3 [facility] Comment on above: Order Comment: No: D o not add to previous draw Performed By: #### 8 5499 #### [facility] [address] [place] [id number], [facility] Chloride [Moles/Vol] 102 mmol/L Normal 98-107 [facility] Comment on above: Order Comment: No: D o not add to previous draw Performed By: #### 8 5499 #### [facility] [address] [place] [address], [place] CO2 [Moles/Vol] 24 mmol/L Normal 21-31 [facility] Comment on above: Order Comment: No: D o not add to previous draw Performed By: #### 8 5499 #### [facility] [address] [place] [address], [place] Creatinine [Mass/Vol] 3.44 mg/dL High 0.70-1.30 [facility] Comment on above: Order Comment: No: D o not add to previous draw Performed By: #### 8 5499 #### [facility] [address] [place] [address], [place] eGFR- 22 ml/min/1.73sq m Abnormal >60 [facility] Comment on above: Order Comment: No: D o not add to previous draw Performed By: #### 8 5499 #### [facility] [address] [place] [address], [place] eGFR- non- 18 ml/min/1.73sq m Abnormal >60 [facility] Comment on above: Order Comment: No: D o not add to previous draw Performed By: #### 8 5499 #### [facility] [address] [place] [address], [place] Glucose [Mass/Vol] 355 mg/dL High 70-100 [facility] Comment on above: Order Comment: No: D o not add to previous draw Performed By: #### 8 5499 #### [facility] [address] [place] [address], [place] Potassium [Moles/Vol] 4.6 mmol/L Normal 3.5-5.1 [facility] Comment on above: Order Comment: No: D o not add to previous draw Performed By: #### 8 5499 #### [facility] [address] [place] [address], [place] Sodium [Moles/Vol] 133 mmol/L Low 136-145 [facility] Comment on above: Order Comment: No: D o not add to previous draw Performed By: #### 8 5499 #### [facility] [address] [place] [address], [place] Urea nitrogen [Mass/Vol] 27 mg/dL High 7-25 [facility] Comment on above: Order Comment: No: D o not add to previous draw Performed By: #### 8 5499 #### [facility] [address] [place] [address], [facility] BNP (B-TYPE NATRIURETIC PEPT RAYNE)on 07-14-2020 Natriuretic peptide B (Bld) [Mass/Vol] 19 pg/mL Normal 0-100 [facility] Comment on above: Order Comment: Left Peural Effusion Result Comment: Give n the appropriate clinical setting a BNP result of >100 pg/mL indicates congestive heart failure. Performed By: #### 3 0318 #### [facility] [address] [facility] [address] CBC COMPLETE BLOOD COUNTon 0 07-14-2020 Erythrocyte distribution width (RBC) [Ratio] 14.6 % Normal 11.5-15.0 [facility] Comment on above: Order Comment: No: D o not add to previous draw Performed By: #### 8 5499 #### [facility] [address] [place] [address], [facility] Hematocrit (Bld) [Volume fraction] 35.3 % Low 39.0-50.0 [facility] Comment on above: Order Comment: No: D o not add to previous draw Performed By: #### 8 5499 #### [facility] [address] [facility] [place] [address], [facility] Hemoglobin (Bld) [Mass/Vol] 11.1 g/dL Low 13.0-17.0 [facility] Comment on above: Order Comment: No: D o not add to previous draw Performed By: #### 8 5499 #### [facility] [address] [place] [id number], [facility] MCH (RBC) [Entitic mass] 27.5 pg Normal 27.0-33.0 [facility] Comment on above: Order Comment: No: D o not add to previous draw Performed By: #### 8 5499 #### [facility] [address] [facility] [place] [address], [facility] MCHC (RBC) [Mass/Vol] 31.4 g/dL Low 32.0-35.0 [facility] Comment on above: Order Comment: No: D o not add to previous draw Performed By: #### 8 5499 #### [facility] [address] [place] [id number], [facility] MCV (RBC) [Entitic vol] 87.6 fL Normal 82.0-98.0 [facility] Comment on above: Order Comment: No: D o not add to previous draw Performed By: #### 8 [id number] #### [facility] [address] [facility] [place] [address], [facility] Nucleated RBC/100 WBC (Bld) [Ratio] 0 % Normal 0-0 [facility] Comment on above: Order Comment: No: D o not add to previous draw Performed By: #### 8 [id number] #### [facility] [address] [place] [id number], [facility] PLAT CNT 325 10*3/uL Normal 150-400 [facility] Comment on above: Order Comment: No: D o not add to previous draw Performed By: #### 8 [id number] #### [facility] [address] [place] [address], [facility] RBC (Bld) [#/Vol] 4.03 10*6/uL Low 4.20-5.70 [facility] Comment on above: Order Comment: No: D o not add to previous draw Performed By: #### 8 [id number] #### [facility] [address] [facility] [place] [id number], [facility] WBC (Bld) [#/Vol] 12.59 10*3/uL High 4.00-10.60 [facility] Comment on above: Order Comment: No: D o not add to previous draw Performed By: #### 8 [id number] #### [facility] [address] [place] [address], [facility] CBC W/DIFFon 07-14-2020 ABS IMM GRANS 0.2 10*3/uL Normal 0.0-0.2 [facility] Comment on above: Order Comment: No: D o not add to previous draw Performed By: #### 8 [id number] #### [facility] [address] [facility] [place] [address], [facility] ABS NEUTROPHILS 7.9 10*3/uL High 1.6-7.6 [facility] Comment on above: Order Comment: No: D o not add to previous draw Performed By: #### 8 [id number] #### [facility] [address] [place] [address], [facility] Basophils (Bld) [#/Vol] 0.1 10*3/uL Normal 0.0-0.2 [facility] Comment on above: Order Comment: No: D o not add to previous draw Performed By: #### 8 [id number] #### [facility] [address] [facility] [place] [address], [facility] Basophils/100 WBC (Bld) 0.5 % Normal 0.0-1.0 [facility] Comment on above: Order Comment: No: D o not add to previous draw Performed By: #### 8 [id number] #### [facility] [address] [facility] [place] [address], [facility] Eosinophils (Bld) [#/Vol] 0.5 10*3/uL Normal 0.0-0.5 [facility] Comment on above: Order Comment: No: D o not add to previous draw Performed By: #### 8 [id number] #### [facility] [address] [facility]. [place] [id number], [facility] Eosinophils/100 WBC (Bld) 4.3 % Normal 0.0-6.0 [facility] Comment on above: Order Comment: No: D o not add to previous draw Performed By: #### 8 [id number] #### [facility] [address] [place] [address], [facility] Erythrocyte distribution width (RBC) [Ratio] 14.6 % Normal 11.5-15.0 [facility] Comment on above: Order Comment: No: D o not add to previous draw Performed By: #### 8 [id number] #### [facility] [address] [place] [id number], [facility] Hematocrit (Bld) [Volume fraction] 34.2 % Low 39.0-50.0 [facility] Comment on above: Order Comment: No: D o not add to previous draw Performed By: #### 8 [id number] #### [facility] [address] [facility] [place] [address], [facility] Hemoglobin (Bld) [Mass/Vol] 10.3 g/dL Low 13.0-17.0 [facility] Comment on above: Order Comment: No: D o not add to previous draw Performed By: #### 8 [id number] #### [facility] [address] [place] [address], [facility] IMMATURE GRANS 1.4 % High 0.0-1.0 [facility] Comment on above: Order Comment: No: D o not add to previous draw Performed By: #### 8 [id number] #### [facility] [address] [facility] [place] [address], [facility] Lymphocytes (Bld) [#/Vol] 1.3 10*3/uL Normal 1.2-4.0 [facility] Comment on above: Order Comment: No: D o not add to previous draw Performed By: #### 8 [id number] #### [facility] [address] [place] [address], [facility] Lymphocytes/100 WBC (Bld) 11.3 % Low 20.0-45.0 [facility] Comment on above: Order Comment: No: D o not add to previous draw Performed By: #### 8 [id number] #### [facility] [address] [place] [address], [facility] MCH (RBC) [Entitic mass] 27.0 pg Normal 27.0-33.0 [facility] Comment on above: Order Comment: No: D o not add to previous draw Performed By: #### 8 [id number] #### [facility] [address] [place] [address], [facility] MCHC (RBC) [Mass/Vol] 30.1 g/dL Low 32.0-35.0 [facility] Comment on above: Order Comment: No: D o not add to previous draw Performed By: #### 8 [id number] #### [facility] [address] [place] [id number], [facility] MCV (RBC) [Entitic vol] 89.5 fL Normal 82.0-98.0 [facility] Comment on above: Order Comment: No: D o not add to previous draw Performed By: #### 8 [id number] #### [facility] [address] [place] [id number], [facility] Monocytes (Bld) [#/Vol] 1.4 10*3/uL High 0.1-1.0 [facility] Comment on above: Order Comment: No: D o not add to previous draw Performed By: #### 8 [id number] #### [facility] [address] [place] [address], [facility] MONOS 12.6 % High 5.0-12.0 [facility] Comment on above: Order Comment: No: D o not add to previous draw Performed By: #### 8 [id number] #### [facility] [address] [place] [id number], [facility] Neutrophils/100 WBC (Bld) 69.9 % Normal 40.0-72.0 [facility] Comment on above: Order Comment: No: D o not add to previous draw Performed By: #### 8 [id number] #### [facility] [address] [place] [id number] [place] [address] Nucleated RBC/100 WBC (Bld) [Ratio] 0 % Normal 0-0 [facility] Comment on above: Order Comment: No: D o not add to previous draw Performed By: #### 8 [id number] #### [facility] [address] [place] [address], [place] PLAT CNT 292 10*3/uL Normal 150-400 [facility] Comment on above: Order Comment: No: D o not add to previous draw Performed By: #### 8 [id number] #### [facility] [address] [place] [address], [facility] RBC (Bld) [#/Vol] 3.82 10*6/uL Low 4.20-5.70 [facility] Comment on above: Order Comment: No: D o not add to previous draw Performed By: #### 8 [id number] #### [facility] [address] [place] [address], [facility] WBC (Bld) [#/Vol] 11.28 10*3/uL High 4.00-10.60 [facility] Comment on above: Order Comment: No: D o not add to previous draw Performed By: #### 8 5499 #### [facility] [address] [place] [address], [facility] COMP METABOLIC PANELon 07-14 Albumin [Mass/Vol] 3.1 g/dL Low 3.5-5.7 [facility] Comment on above: Order Comment: No: D o not add to previous draw Performed By: #### 8 [id number] #### [facility] [address] [place] [address], [place] ALKALINE PHOSPH 77 IU/L Normal 34-104 [facility] Comment on above: Order Comment: No: D o not add to previous draw Performed By: #### 8 5499 #### [facility] [address] [place] [address], [facility] ALT [Catalytic activity/Vol] 8 U/L Normal 7-52 [facility] Comment on above: Order Comment: No: D o not add to previous draw Performed By: #### 8 5499 #### [facility] [address] [place] [address], [place] AST [Catalytic activity/Vol] 11 U/L Low 13-39 [facility] Comment on above: Order Comment: No: D o not add to previous draw Performed By: #### 8 5499 #### [facility] [address] [place] [address], [place] Bilirubin [Mass/Vol] 0.3 mg/dL Normal 0.3-1.0 [facility] Comment on above: Order Comment: No: D o not add to previous draw Performed By: #### 8 5499 #### [facility] [address] [place] [address], [place] Calcium [Mass/Vol] 8.8 mg/dL Normal 8.6-10.3 [facility] Comment on above: Order Comment: No: D o not add to previous draw Performed By: #### 8 5499 #### [facility] [address] [place] [address], [place] Chloride [Moles/Vol] 101 mmol/L Normal 98-107 [facility] Comment on above: Order Comment: No: D o not add to previous draw Performed By: #### 8 5499 #### [facility] [address] [place] [address], [place] CO2 [Moles/Vol] 22 mmol/L Normal 21-31 [facility] Comment on above: Order Comment: No: D o not add to previous draw Performed By: #### 8 5499 #### [facility] [address] [place] [address], [place] Creatinine [Mass/Vol] 3.38 mg/dL High 0.70-1.30 [facility] Comment on above: Order Comment: No: D o not add to previous draw Performed By: #### 8 5499 #### [facility] [address] [place] [address], [place] eGFR- 23 ml/min/1.73sq m Abnormal >60 [facility] Comment on above: Order Comment: No: D o not add to previous draw Performed By: #### 8 5499 #### [facility] [address] [place] [address], [place] eGFR- non- 19 ml/min/1.73sq m Abnormal >60 [facility] Comment on above: Order Comment: No: D o not add to previous draw Performed By: #### 8 5499 #### [facility] [address] [place] [address], [place] Glucose [Mass/Vol] 324 mg/dL High 70-100 [facility] Comment on above: Order Comment: No: D o not add to previous draw Performed By: #### 8 5499 #### [facility] [address] [place] [address], [place] Potassium [Moles/Vol] 4.5 mmol/L Normal 3.5-5.1 [facility] Comment on above: Order Comment: No: D o not add to previous draw Performed By: #### 8 5499 #### [facility] [address] [place] [address], [place] Protein [Mass/Vol] 6.7 g/dL Normal 6.0-8.3 [facility] Comment on above: Order Comment: No: D o not add to previous draw Performed By: #### 8 5499 #### [facility] [address] [place] [address], [place] Sodium [Moles/Vol] 131 mmol/L Low 136-145 [facility] Comment on above: Order Comment: No: D o not add to previous draw Performed By: #### 8 5499 #### [facility] [address] [place] [address], [facility] Urea nitrogen [Mass/Vol] 27 mg/dL High 7-25 [facility] Comment on above: Order Comment: No: D o not add to previous draw Performed By: #### 8 5499 #### [facility] [address] [place] [address], [facility] CREATININE URINE RANDOMon Creatinine (U) [Mass/Vol] 101.0 mg/dL Normal [facility] Comment on above: Order Comment: No: D o not add to previous draw Result Comment: Ther e are no established reference values for random urine specimens Performed By: #### 8 [id number] #### [facility] [address] [facility] [place] [address], [facility] FLUID CELL COUNTon 1 Basophils/100 WBC (Bld) 1 % Normal [facility] Comment on above: Performed By: #### 8 5499 #### [facility] [address] [facility] [place] [address], [facility] Eosinophils/100 WBC (Bld) 11 % Normal [facility] Comment on above: Performed By: #### 8 5499 #### [facility] [address] [facility] [place] [address], [facility] Lymphocytes/100 WBC (Bld) 49 % Normal [facility] Comment on above: Performed By: #### 8 5499 #### [facility] [address] [facility] [place] [address], [facility] MESOTHELIAL 12 % Normal [facility] Comment on above: Performed By: #### 8 5499 #### [facility] [address] [facility] [place] [address], [facility] OTHER F1 Diff done by cytospin Normal [facility] Comment on above: Performed By: #### 8 5499 #### [facility] [address] [place] [address], [facility] OTHER F3 Checked by Mac Rodriguez M.D. Normal [facility] Comment on above: Result Comment: Resu lt changed by VHERR on 07/15/2020 13:33. The previous value was Preliminary report; verified report to follow. Performed By: #### 8 [id number] #### [facility] [address] [place] [address], [facility] RBC [address] RBC/uL Normal [facility] Comment on above: Performed By: #### 8 5499 #### [facility] [address] [place] [address], [facility] SEGS 27 % Normal [facility] Comment on above: Performed By: #### 8 5499 #### [facility] [address] [place] [address], [place] SOURCE Thoracentesis Normal [facility] Comment on above: Performed By: #### 8 5499 #### [facility] [address] [place] [address], [facility] TOTAL VOLUME 1L Normal [facility] Comment on above: Performed By: #### 8 5499 #### [facility] [address] [place] [address], [place] WBC 1762 WBC/uL Normal [facility] Comment on above: Result Comment: Some reference interval(s) and other method performance specifications have not been established for analytes on this body fluid. The test result must be integrated into the clinical context for interpretation. Performed By: #### 8 [id number] #### [facility] [address] [place] [address], [place] GLUCOSE FLUID MISCon 021 Glucose [Mass/Vol] 326 mg/dL Normal [facility] Comment on above: Result Comment: The reference range and other method performance specifications have not been established for this test in fluids. the test result should be integrated into the clinical context for interpretation. Performed By: #### 3 1944 #### [facility] [address] [place] [address], [place] HEMOGLOBIN A1Con 07-14-2020 Glucose [Moles/Vol] 295 mmol/L Normal [facility] Comment on above: Order Comment: Left Peural Effusion Performed By: #### 3 0318 #### [facility] [address] [place] [address], [facility] HbA1c (Bld) [Mass fraction] 11.9 % High 4.0-6.0 [facility] Comment on above: Order Comment: Left Peural Effusion Performed By: #### 3 8 #### [facility] [address] [place] [address], [facility] HEPATITIS B SURFACE ANTIGEN QUALon 07-14-2020 HEP B SURF AG QUAL Non-Reactive Normal NONREACTIVE [facility] Comment on above: Order Comment: No: D o not add to previous draw Performed By: #### 3 1944 #### [facility] [address] [place] [address], [facility] HEPATITIS C ANTIBODYon 07-14 ANTI-HCV Non-Reactive Normal NONREACTIVE [facility] Comment on above: Order Comment: No: D o not add to previous draw Performed By: #### 3 1944 #### [facility] [address] [place] [address], [facility] LDH BLOODon 07-14-2020 LDH 176 Units/L Normal 140-271 [facility] Comment on above: Order Comment: Left Peural Effusion Performed By: #### 3 0318 #### [facility] [address] [place] [address], [facility] LDH 133 Units/L Low 140-271 [facility] Comment on above: Order Comment: No: D o not add to previous draw Performed By: #### 8 [id number] #### [facility] [address] [place] [address], [place] LDH FLUIDon 07-14-2020 LDH 212 Units/L Normal [facility] Comment on above: Result Comment: The reference range and other method performance specifications have not been established for this test in fluids. the test result should be integrated into the clinical context for interpretation. Performed By: #### 3 1944 #### [facility] [address] [place] [address], [facility] LIPID PROFILEon 07-14-2020 Cholesterol [Mass/Vol] 95 mg/dL Low 120-200 [facility] Comment on above: Order Comment: No: D o not add to previous draw Result Comment: CHOL ESTEROL REFERENCE RANGE: 20 YEARS AND OLDER CARDIOVASCULAR RISK Less than 200 mg/dl Low Risk 200 to 239 mg/dl Borderline Risk 240 mg/dl and greater High Risk Performed By: #### 8 [id number] #### [facility] [address] [place] [address], [facility] Cholesterol in HDL [Mass/Vol] 36 mg/dL Normal 23-92 [facility] Comment on above: Order Comment: No: D o not add to previous draw Result Comment: Slig ht variation in normal range could be due to gender and/or age. HDL CHOLESTEROL REFERENCE RANGE: 20 years and older Cardiovascular Risk > or =60 mg/dL Desirable 40 TO 59 mg/dL Low Risk <40 mg/dL High Risk Performed By: #### 8 [id number] #### [facility] [address] [facility] [place] [address], [facility] Cholesterol in LDL [Mass/Vol] 37 mg/dL Normal 0-130 [facility] Comment on above: Order Comment: No: D o not add to previous draw Result Comment: LDL IS A CALCULATION LDL IS ONLY VALID IF THE TRIG IS LESS THAN 400. Performed By: #### 8 [id number] #### [facility] [address] [place] [address], [place] Cholesterol.total/Ch olesterol in HDL [Mass ratio] 2.6 {ratio} Normal 0.0-4.5 [facility] Comment on above: Order Comment: No: D o not add to previous draw Performed By: #### 8 5499 #### [facility] [address] [place] [address], [facility] NON-HDL CHOLESTEROL 59 mg/dL Normal [facility] Comment on above: Order Comment: No: D o not add to previous draw Performed By: #### 8 5499 #### [facility] [address] [place] [id number], [facility] Triglyceride [Mass/Vol] 109 mg/dL Normal 40-149 [facility] Comment on above: Order Comment: No: D o not add to previous draw Result Comment: TRIG LYCERIDE REFERENCE RANGE: 20 YEARS AND OLDER CARDIOVASCULAR RISK LESS THAN 150 mg/dl LOW RISK 150 TO 199 mg/dl BORDERLINE RISK 200 mg/dl AND GREATER HIGH RISK Performed By: #### 8 5499 #### [facility] [address] [place] [address], [facility] VLDL CHOL 22 mg/dL Normal 0-40 [facility] Comment on above: Order Comment: No: D o not add to previous draw Performed By: #### 8 5499 #### [facility] [address] [place] [address], [facility] MAGNESIUM BLOODon 07-14-2020 Magnesium [Mass/Vol] 2.1 mg/dL Normal 1.9-2.7 [facility] Comment on above: Order Comment: No: D o not add to previous draw Performed By: #### 8 5499 #### [facility] [address] [place] [address], [place] Magnesium [Mass/Vol] 2.0 mg/dL Normal 1.9-2.7 [facility] Comment on above: Performed By: #### 8 5499 #### [facility] [address] [place] [address], [facility] PHOSPHORUS BLOODon Phosphate [Mass/Vol] 4.1 mg/dL Normal 2.5-5.0 [facility] Comment on above: Order Comment: No: D o not add to previous draw Performed By: #### 8 5499 #### [facility] [address] [place] [address], [place] Phosphate [Mass/Vol] 4.0 mg/dL Normal 2.5-5.0 [facility] Comment on above: Performed By: #### 8 5499 #### [facility] [address] [place] [address], [place] POC GLUCOSE LABon 07-14-2020 Glucose [Mass/Vol] 180 mg/dL High 70-100 [facility] Comment on above: Performed By: #### 8 5499 ####[facility] [place] [address], [place] Glucose [Mass/Vol] 198 mg/dL High 70-100 [facility] Comment on above: Performed By: #### 5 7307, 34777 #### [facility] [address] [place] [address], [place] Glucose [Mass/Vol] 265 mg/dL High 70-100 [facility] Comment on above: Performed By: #### 8 5499 #### [facility] [address] [place] [address], [place] Glucose [Mass/Vol] 305 mg/dL High 70-100 [facility] Comment on above: Performed By: #### 5 7307, 19739 #### [facility] [address] [place] [address], [place] Glucose [Mass/Vol] 301 mg/dL High 70-100 [facility] Comment on above: Performed By: #### 5 0103 #### [facility] [address] [address], [place] PORTABLE CHEST 1 VIEWon 06-27 PORTABLE CHEST 1 VIEW [facility] Department of Radiology [address] [place] [id number] Patient Name: RASHARD LYMAN : 1960 Sex: M Age: Race: White Pt. Location: [id number] Patient Status: I Ordered Date: 07/14/2020 1:40:00 [...] above Electronically signed: Patricia Damon. Transcribed by: [email or web address], User Resident: Electronically Signed by: PATRICIA DAMON @ 07/14/2020 03:24 PM Normal [facility] Comment on above: Order Comment: Evalu ate for Pneumothorax PORTABLE CHEST 1 VIEW [facility] Department of Radiology [address] [place] [id number] Patient Name: RASHARD LYMAN : 1960 Sex: M Age: Race: White Pt. Location: [id number] Patient Status: I Ordered Date: 07/13/2020 11:35:00 [...] reports Electronically signed: Valdemar Foster. Transcribed by: [email or web address], User Resident: SY MOFFETT Electronically Signed by: VALDEMAR FOSTER @ 07/14/2020 06:31 AM I personally read this/these film(s) with this resident Normal [facility] Comment on above: Order Comment: evalu ate for Effusion PROTEIN ELECT Truong 07-14-2020 Protein [Mass/Vol] 6.0 g/dL Normal 6.0-8.3 [facility] Comment on above: Performed By: #### 3 0318 #### [place] [address] [place] [address], [facility] PROTEIN ELECT Normal [facility] Comment on above: Result Comment: Decr eased albumin and elevated alpha 1 and 2 suggests acute inflammation. Performed By: #### 3 0318 #### [facility] [address] [place] [address], [facility] PROTEIN ELECT URon 1 PROTEIN ELECT Urine protein electrophoresis suggests a nonselective nephropathy. Normal [facility] Comment on above: Performed By: #### 3 1944 #### [facility] [address] [place] [address], [facility] PROTEIN TOTAL BLOODon 2020 Protein [Mass/Vol] 6.7 g/dL Normal 6.0-8.3 [facility] Comment on above: Order Comment: Left Peural Effusion Performed By: #### 3 0318 #### [facility] [address] [facility] [address] PROTHROMBIN TIMEon 1 INR Coag (PPP) [Relative time] 1.12 {INR} Normal 0.91-1.16 [facility] Comment on above: Order Comment: [...] CHEST 1995;[id number]. Performed By: #### 5 7307, 00[address] #### [facility] [address] [place] [address], [facility] PT Coag (PPP) [Time] 14.4 s Normal 12.3-14.8 [facility] Comment on above: Order Comment: No: D o not add to previous draw Result Comment: ALL RESULTS MUST BE INTERPRETED WITH RESPECT TO BLOOD DRAWING ARTIFACT OR DILUTION ERROR OF ANTICOAGULANT AT THE TIME OF SAMPLING. Performed By: #### 5 7307, 02645 #### [facility] [address] [place] [address], [facility] SEDIMENTATION RATEon 021 SED RATE 32 mm/hr High 0-10 [facility] Comment on above: Performed By: #### 8 [id number] #### [facility] [address] [place] [address], [facility] SODIUM URINE RANDOMon 2020 Sodium (U) [Moles/Vol] 59 mmol/L Normal [facility] Comment on above: Order Comment: No: D o not add to previous draw Result Comment: Ther e are no established reference values for random urine specimens Performed By: #### 8 [id number] #### [facility] [address] [place] [address], [facility] T PROT FLUIDon 07-14-2020 Protein [Mass/Vol] 3.6 g/dL Normal [facility] Comment on above: Result Comment: The reference range and other method performance specifications have not been established for this test in fluids. the test result should be integrated into the clinical context for interpretation. Performed By: #### 3 1944 #### [facility] [address] [place] [address], [place] T PROT UR Loretta 07-14-2020 U TOTAL PROTEIN 859.0 mg/dL Normal [facility] Comment on above: Order Comment: No: D o not add to previous draw Result Comment: Ther e are no established reference values for random urine specimens Performed By: #### [id number] #### [facility] [address] [facility]. [address] Performed By: #### 3 1944 #### [facility] [address] [facility]. [address] TROPONIN-Ion 07-14-2020 Troponin I.cardiac [Mass/Vol] 0.09 ng/mL High 0.00-0.04 [facility] Comment on above: Order Comment: No: D o not add to previous draw Result Comment: REFE RENCE RANGES: 0.00 - 0.04 ng/ml NORMAL 0.05 - 0.50 ng/ml INDETERMINATE > 0.50 ng/ml CONSISTENT WITH AN M.I. Performed By: #### 8 [id number] #### [facility] [address] Troponin I.cardiac [Mass/Vol] 0.07 ng/mL High 0.00-0.04 [facility] Comment on above: Order Comment: No: D o not add to previous draw Result Comment: REFE RENCE RANGES: 0.00 - 0.04 ng/ml NORMAL 0.05 - 0.50 ng/ml INDETERMINATE > 0.50 ng/ml CONSISTENT WITH AN M.I. Performed By: #### 8 [id number] #### [facility] [address] TSH3on 07-14-2020 TSH 3RD GENERATION 3.28 uIU/mL Normal 0.34-5.60 [facility] Comment on above: Order Comment: No: D o not add to previous draw Performed By: #### 8 [id number] #### [facility] [address] [facility]. [address] URIC ACID BLOODon 07-14-2020 Urate [Mass/Vol] 7.1 mg/dL Normal 4.4-7.6 [facility] Comment on above: Performed By: #### 8 [id number] #### [facility] [address] [facility]. [address] URINALYSIS REFLEXon 07-15-19 21 Appearance (U) SL CLOUDY Abnormal CLEAR [facility] Comment on above: Order Comment: Left Peural Effusion Performed By: #### 3 0318 #### [facility] [address] [place] [address], [place] Bilirubin Ql (U) Negative Normal NEGATIVE [facility] Comment on above: Order Comment: Left Peural Effusion Performed By: #### 3 0318 #### [facility] [address] [place] [address], [place] Color (U) YELLOW Normal YELLOW [facility] Comment on above: Order Comment: Left Peural Effusion Performed By: #### 3 0318 #### [facility] [address] [place] [address], [place] EPIS FEW Normal FEW,OCC,NONE SEEN [facility] Comment on above: Order Comment: Left Peural Effusion Performed By: #### 3 0318 #### [facility] [address] [place] [address], [place] Glucose Ql (U) >=500 Abnormal NEGATIVE [facility] Comment on above: Order Comment: Left Peural Effusion Performed By: #### 3 0318 #### [facility] [address] [place] [address], [place] Hemoglobin Ql (U) TRACE Abnormal NEGATIVE [facility] Comment on above: Order Comment: Left Peural Effusion Performed By: #### 3 0318 #### [facility] [address] [place] [address], [place] KETONE TRACE Abnormal NEGATIVE [facility] Comment on above: Order Comment: Left Peural Effusion Performed By: #### 3 0318 #### [facility] [address] [place] [address], [place] LEUK JACIEL Negative Normal NEGATIVE [facility] Comment on above: Order Comment: Left Peural Effusion Performed By: #### 3 0318 #### [facility] [address] [place] [address], [place] MUCUS THREADS OCC Abnormal NONE SEEN [facility] Comment on above: Order Comment: Left Peural Effusion Performed By: #### 3 0318 #### [facility] [address] [place] [address], [place] Nitrite Ql (U) Negative Normal NEGATIVE [facility] Comment on above: Order Comment: Left Peural Effusion Performed By: #### 3 0318 #### [facility] [address] [place] [address], [place] pH (U) 6.0 [pH] Normal 5.0-8.0 [facility] Comment on above: Order Comment: Left Peural Effusion Performed By: #### 3 0318 #### [facility] [address] [place] [address], [place] Protein Ql (U) >=500 Abnormal NEGATIVE [facility] Comment on above: Order Comment: Left Peural Effusion Performed By: #### 3 0318 #### [facility] [address] [place] [address], [place] RBC 0-2 Abnormal NONE SEEN [facility] Comment on above: Order Comment: Left Peural Effusion Performed By: #### 3 0318 #### [facility] [address] [place] [address], [place] SPEC GRAV 1.017 Normal 1.015-1.020 [facility] Comment on above: Order Comment: Left Peural Effusion Performed By: #### 3 0318 #### [facility] [address] [place] [address], [place] WBC UA 3-5 Abnormal NONE SEEN [facility] Comment on above: Order Comment: Left Peural Effusion Performed By: #### 3 0318 #### [facility] [address] [place] [address], [place] Vital Signs Date Time Vital Sign Value Performing Clinician Facility 01-19-2025 21:28-0400 Body height 193 cm Colton Furlong DO Work Phone: [facility] 01-19-2025 21:28-0400 Body mass index (BMI) [Ratio] 29.9 kg/m2 Colton Furlong DO Work Phone: [facility] 01-19-2025 21:28-0400 Body temperature 98.1 [degF] Colton Furlong DO Work Phone: [facility] 01-19-2025 21:28-0400 Body weight 111.4 kg Colton Furlong DO Work Phone: [facility] 01-19-2025 21:28-0400 Diastolic blood pressure 86 mm[Hg] Colton Furlong DO Work Phone: [facility] 01-19-2025 21:28-0400 Heart rate 77 /min Colton Furlong DO Work Phone: [facility] 01-19-2025 21:28-0400 Respiratory rate 18 /min Colton Furlong DO Work Phone: [facility] 01-19-2025 21:28-0400 SaO2% (BldA) [Mass fraction] 99 % Colton Furlong DO Work Phone: [facility] 01-19-2025 21:28-0400 Systolic blood pressure 132 mm[Hg] Colton Furlong DO Work Phone: [facility] 01-15-2025 13:22-0400 Diastolic blood pressure 57 mm[Hg] Chino Elliott DPM Work Phone: [facility] 01-15-2025 13:22-0400 Heart rate 80 /min Chino Elliott DPM Work Phone: [facility] 01-15-2025 13:22-0400 Respiratory rate 20 /min Chino Elliott DPM Work Phone: [facility] 01-15-2025 13:22-0400 SaO2% (BldA) [Mass fraction] 100 % Chino Elliott DPM Work Phone: [facility] 01-15-2025 13:22-0400 Systolic blood pressure 97 mm[Hg] Chino Elliott DPM Work Phone: [facility] 01-15-2025 09:10-0400 Body temperature 97.8 [degF] Chino Elliott DPM Work Phone: [facility] 01-15-2025 05:33-0400 Body weight 131.9 kg Chino Elliott DPM Work Phone: [facility] 01-14-2025 13:33-0400 Body height 193.04 cm Chino Elliott DPM Work Phone: [facility] 12-30-2024 14:32-0400 Body temperature 98.3 [degF] Chino Elliott DPM Work Phone: [facility] 12-30-2024 14:32-0400 Diastolic blood pressure 76 mm[Hg] Chino Elliott DPM Work Phone: [facility] 12-30-2024 14:32-0400 Heart rate 80 /min Chino Elliott DPM Work Phone: [facility] 12-30-2024 14:32-0400 Respiratory rate 18 /min Chino Elliott DPM Work Phone: [facility] 12-30-2024 14:32-0400 SaO2% (BldA) [Mass fraction] 100 % Chino Elliott DPM Work Phone: [facility] 12-30-2024 14:32-0400 Systolic blood pressure 152 mm[Hg] Chino Elliott DPM Work Phone: [facility] 12-30-2024 06:00-0400 Body weight 108.2 kg Chino Elliott DPM Work Phone: [facility] 12-24-2024 12:55-0400 Body height 193.04 cm Chino Elliott DPM Work Phone: [facility] 12-24-2024 10:07-0400 Inhaled oxygen flow rate 7 L/min Chino Elliott DPM Work Phone: [facility] 02-27-2024 11:25-0400 Body height 193 cm Nima Lee MD Work Phone: [facility] 02-27-2024 11:25-0400 Body mass index (BMI) [Ratio] 28 kg/m2 Nima Lee MD Work Phone: [facility] 02-27-2024 11:25-0400 Body temperature 97.11 [degF] Nima Lee MD Work Phone: [facility] [employer] [facility] [facility] 02-27-2024 11:25-0400 Body weight 104.33 kg Nima Lee MD Work Phone: [facility] 02-27-2024 11:25-0400 Diastolic blood pressure 80 mm[Hg] Nima Lee MD Work Phone: [facility] 02-27-2024 11:25-0400 Heart rate 78 /min Nima Lee MD Work Phone: [facility] 02-27-2024 11:25-0400 SaO2% (BldA) [Mass fraction] 98 % Nima Lee MD Work Phone: [facility] [employer] [facility] [facility] 02-27-2024 11:25-0400 Systolic blood pressure 130 mm[Hg] Nima Lee MD Work Phone: [facility] [employer] [facility] [facility] 03-21-2021 15:40-0500 Body height 193.04 cm Kike Pollack Other [employer] Other 03-21-2021 15:40-0500 Body mass index (BMI) [Ratio] 39.02 kg/m2 Kike Pollack Other [employer] Other 03-21-2021 15:40-0500 Body temperature 97.8 [degF] Kike Pollack Other [employer] Other 03-21-2021 15:40-0500 Body weight 145.42 kg Kike Pollack Other [employer] Other 03-21-2021 15:40-0500 Diastolic blood pressure 84 mm[Hg] Kike Pollack Other [employer] Other 03-21-2021 15:40-0500 Respiratory rate 18 /min Kike Pollack Other [employer] Other 03-21-2021 15:40-0500 SaO2% (BldA) [Mass fraction] 96 % Kike Pollack Other [employer] Other 03-21-2021 15:40-0500 Systolic blood pressure 137 mm[Hg] Kike Pollack Other [employer] Other 08-25-2020 12:24-0400 Heart rate 82 /min Jose Valone Work Phone: [facility] 08-25-2020 12:24-0400 Respiratory rate 20 /min Jose Valone Work Phone: [facility] 08-25-2020 11:17-0400 Body temperature 98.7 [degF] Jose Valone Work Phone: [facility] 08-25-2020 11:17-0400 Diastolic blood pressure 94 mm[Hg] Jose Valone Work Phone: [facility] 08-25-2020 11:17-0400 SaO2% (BldA) [Mass fraction] 96 % Jose Valone Work Phone: [facility] 08-25-2020 11:17-0400 Systolic blood pressure 183 mm[Hg] Jose Valone Work Phone: [facility] 08-25-2020 06:00-0400 Body weight 160.5 kg Jose Valone Work Phone: [facility] 08-19-2020 14:17-0400 Body height 193.04 cm Jose Valone Work Phone: [facility] 08-18-2020 21:22-0400 Body height 193.04 cm Jose Valone Work Phone: [facility] 08-18-2020 21:22-0400 Body mass index (BMI) [Ratio] 43.8 kg/m2 Jose Valone Work Phone: [facility] 08-18-2020 21:22-0400 Body temperature 97.6 [degF] Jose Valone Work Phone: [facility] 08-18-2020 21:22-0400 Body weight 163.3 kg Jose Valone Work Phone: [facility] 08-18-2020 21:22-0400 Diastolic blood pressure 80 mm[Hg] Jose Valone Work Phone: [facility] 08-18-2020 21:22-0400 Heart rate 105 /min Jose Valone Work Phone: [facility] 08-18-2020 21:22-0400 Respiratory rate 18 /min Jose Valone Work Phone: [facility] 08-18-2020 21:22-0400 SaO2% (BldA) [Mass fraction] 94 % Jose Valone Work Phone: [facility] 08-18-2020 21:22-0400 Systolic blood pressure 160 mm[Hg] Jose Valone Work Phone: [facility] Encounters Encounter Date Encounter Type Care Provider Facility Start: 02-01-2025 End: 02-01-2025 ambulatory Jose Juarez JR Work Phone: [facility] Work Phone: Start: 02-01-2025 End: 02-01-2025 Patient encounter procedure Wilfrido Montez DO -[facility] [place] Work Phone: Start: 01-19-2025 End: 01-24-2025 ambulatory Colton Lamb DO Work Phone: [facility] Comment on above: Unspecified trochant cameron fracture of right femur, subsequent encounter for closed fracture with routine healing (Primary Dx); Chronic obstructive pulmonary disease, unspecified COPD type ([facility]); End stage renal disease ([facility]); Dependence on renal dialysis; Peripheral vascular disease, unspecified; Acquired absence of left foot ([facility]); Acquired absence of right foot ([facility]); Type 2 diabetes mellitus with diabetic neuropathy, with long-term current use of insulin ([facility]); Hyperlipidemia, unspecified hyperlipidemia type; Gastroesophageal reflux disease, unspecified whether esophagitis present; Psoriasis, unspecified Start: 01-13-2025 Non-patient / Non-visit Clayton Cardenas MD -[facility] Work Phone: Start: 01-06-2025 Non-patient / Non-visit Aleta Jensen APRN -[facility] Work Phone: Start: 12-30-2024 Non-patient / Non-visit Clayton Cardenas MD -[facility] Work Phone: Start: 12-30-2024 End: 01-15-2025 Evaluation and management of inpatient Jose Juarez Facility:[facility] Start: 12-30-2024 Non-patient / Non-visit Raimundo Mcclure MD -[facility] Work Phone: Start: 12-23-2024 Patient encounter status Chino Elliott DPM Work Phone: [facility] Start: 12-23-2024 Non-patient / Non-visit Ari france MD -[facility] Work Phone: Start: 12-23-2024 Patient encounter status Ari green MD [facility] Start: 12-23-2024 Encounter for preprocedural cardiovascular examination Phillip Duran [facility] Start: 12-23-2024 End: 12-30-2024 Evaluation and management of inpatient Enrique Yang Facility:[facility] Start: 10-26-2024 End: 10-26-2024 ambulatory [facility] Work Phone: Start: 10-26-2024 End: 10-26-2024 Departed Referred Chino Elliott DPM [facility] -[facility] Start: 08-28-2024 End: 08-28-2024 ambulatory Chino Hopson [facility] Work Phone: Start: 08-28-2024 End: 08-28-2024 Departed Referred Chino Elliott DPM Work Phone: [facility] Start: 02-27-2024 End: 02-27-2024 Office outpatient visit 25 minutes Nima Lee MD Work Phone: [facility] Comment on above: 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) Start: 02-17-2024 End: 02-17-2024 ambulatory JOSE JUAREZ [facility] Start: 01-20-2024 End: 01-20-2024 ambulatory JOSE JUAREZ [facility] Start: 12-16-2023 End: 12-16-2023 ambulatory JOSE JUAREZ [facility] Start: 11-19-2023 End: 11-19-2023 ambulatory JOSE JUAREZ [facility] Start: 10-23-2023 End: 10-23-2023 ambulatory [facility] Anmol JUAREZ [facility] Start: 09-03-2023 End: 09-03-2023 ambulatory JOSE JUAREZ JR [facility] Start: 07-31-2023 End: 07-31-2023 ambulatory JOSE Anmol JUAREZ JR [facility] Start: 07-02-2023 End: 07-02-2023 ambulatory JOSE Corea ALLYKERMIT [facility] Start: 06-04-2023 End: 06-04-2023 ambulatory JOSE Corea ALLYKERMIT [facility] Start: 05-31-2023 End: 06-01-2023 ambulatory JUANCARLOS LEHMAN [facility] Start: 05-06-2023 End: 05-06-2023 ambulatory JOSE JUAREZ [facility] Start: 04-19-2023 End: 04-19-2023 ambulatory [facility] Start: 02-27-2023 End: 02-28-2023 ambulatory CHINO Mark Anthony [facility] Start: 09-11-2022 End: 09-12-2022 ambulatory CHINO ELLIOTT Facility:[facility] Start: 08-28-2022 End: 08-29-2022 ambulatory CHINO ELLIOTT Facility:[facility] Start: 08-24-2022 End: 08-25-[address] JOSE JUAREZ Facility:[facility] Start: 08-20-2022 End: 08-21-[address] JOSE JUAREZ Facility:[facility] Start: 08-19-2022 Encounter for preprocedural cardiovascular examination CHINO Mark Anthony [facility] Start: 08-19-2022 Encounter for preprocedural laboratory examination CHINO Hopson [facility] Start: 08-19-2022 Encounter for preprocedural respiratory examination CHINO Hopson [facility] Start: 08-15-2022 End: 08-16-2022 ambulatory [...] ELLIOTT Facility:[facility] Start: 01-02-2022 End: 01-03-2022 ambulatory CHINO ELLIOTT Facility:[facility] Start: 12-25-2021 End: 12-26-2021 ambulatory CHINO ELLIOTT Facility:[facility] Start: 12-21-2021 End: 12-22-2021 ambulatory SHAIKH Patricia DAVIS Facility:[facility] Start: 12-18-2021 End: 12-19-2021 ambulatory CHINO ELLIOTT Facility:[facility] Start: 12-15-2021 End: 12-16-2021 ambulatory CHINO ELLIOTT Facility:[facility] Start: 12-11-2021 End: 12-12-2021 ambulatory CHINO ELLIOTT Facility:[facility] Start: 11-30-2021 End: 12-01-[address] CARLOS EDUARDO SU . Facility:[facility] Start: 11-22-2021 End: 11-23-[address] CARLOS EDUARDO SU . Facility:[facility] Start: 11-21-2021 End: 11-22-2021 ambulatory CHINO ELLIOTT Facility:[facility] Start: 11-14-[address] CARLOS EDUARDO SU . Faci lity:[facility]1 Start: 11-13-2021 End: 11-14-2021 ambulatory CHINO ELLIOTT Facility:[facility] Start: 11-07-2021 End: 11-08-2021 ambulatory [facility] Start: 10-31-2021 End: 11-01-2021 ambulatory [facility]INO [facility] Start: 10-24-2021 End: 10-25-2021 ambulatory [facility]INO [facility] Start: 10-17-2021 End: 10-18-2021 ambulatory CHINO Hopson [facility] Facility:[facility] Start: 10-09-2021 End: 10-10-2021 ambulatory CHINO Hopson [facility] Facility:[facility] Start: 03-21-2021 End: 03-21-2021 ambulatory Kike Pollack Other [employer] Other Start: 03-21-2021 Office outpatient vi sit 25 minutes Kike Pollack [facility] Start: 10-20-2020 End: 10-21-2020 ambulatory UNKNOWN PROVIDER Facility:[facility] Start: 09-28-2020 End: 09-28-2020 Patient encounter procedure Jose Juarez Work Phone: -Respiratory Therapy Start: 09-06-2020 End: 09-06-2020 Patient encounter procedure Jose Juarez Work Phone: -Electrodiagnostics Start: 08-18-2020 End: 08-25-2020 Evaluation and management of inpatient Jose Juaerz Work Phone: -[facility] Start: 07-13-2020 End: 07-22-2020 Evaluation and management of inpatient SAVANNAH REYNOLDS Facility:[facility] Procedures Date Procedure Procedure Detail Performing Clinician Start: 12-23-2024 Antibody screen Chino Patricia ioana Comment on above: Result Comment: PERF ORMED BY: [facility] [id number] [address] PATHOLOGIST MICROCOMPUTER SUPPORT SPECIALIST CARLOS BIRMINGHAM M.D. Start: 05-06-2023 Microalbumin [Mass/v [...] 07-19-2020 RELEASE LEFT PLEURA, PERCUTANEOUS ENDOSCOPIC APPROACH [facility] [place] Start: 07-15-2020 DRAINAGE OF LEFT PLE URAL CAVITY, PERC APPROACH, DIAGN GEOFFREYDUANE OPLLACKREECE Start: 07-15-2020 DRAINAGE OF LEFT PLE URAL CAVITY, PERCUTANEOUS APPROACH [facility] [place] Start: 07-14-2020 DRAINAGE OF LEFT PLE URAL CAVITY, PERCUTANEOUS APPROACH [facility] [place] Start: 07-14-2020 ULTRASONOGRAPHY OF R IGHT AND LEFT HEART, TRANSESOPHAGEAL SAMER Laura CALLAWAY Plan of Treatment Date Care Activity Detail Author Start: 02-10-2027 DTaP,Tdap and Td Vaccines (2 - Td or Tdap) DTaP,Tdap and Td Vaccines (2 - Td or Tdap) [facility] Start: 02-26-2025 Adult BMI Screening Adult BMI Screen ing [facility] Start: 02-26-2025 Tobacco Screening Tobacco Screening [facility] Start: 01-15-2025 End: 01-15-2025 [facility] Start: 01-07-2025 [facility] Start: 12-30-2024 Referral to president and cmo [facility] Start: 12-30-2024 Hospital admission [facility] Start: 12-30-2024 Referral to clinical petrographer [facility] Start: 12-29-2024 [facility] Start: 12-28-2024 COVID-19 Vaccine ( season) COVID-19 Vaccine ( season) [facility] Start: 12-28-2024 Influenza vaccination Influenza Vacc ine [facility] Start: 12-25-2024 Referral to rehabilitation physician [facility] Start: 12-23-2024 Referral to vascular surgeon [facility] Start: 12-23-2024 Referral to president and cmo [facility] Start: 12-23-2024 Consultation [facility] Start: 12-23-2024 Hospital admission [facility] Start: 10-26-2024 [facility] Start: 08-28-2024 [facility] Start: 05-06-2024 Urine screening for protein Urine Microalbumin [facility] Start: 02-27-2024 End: 02-26-2025 US.doppler Extremity arteries - bilateral for physiologic artery study Vas art doppler lwr bilat mult lev/PVR Vascular Ultrasound Routine Critical limb ischemia of left lower extremity with gangrene (CMS-HCC) Expected: 02/27/2024, Expires: 02/26/2025 [facility] Work Phone: Comment on above: Expected: 02/27/2024 , Expires: 02/26/2025 Start: 12-29-2023 COVID-19 Vaccine ( season) COVID-19 Vaccine ( season) [facility] Start: 12-29-2023 Influenza vaccination Influenza Vacc ine [facility] Start: 08-18-2020 Bacteria identified in Blood by Culture Blood Culture [facility] Start: 02-04-2010 Administration of varicella zoster vaccine Zoster (Shingles) Vaccine (1 of 2) [facility] Start: 02-04-1978 Adult BMI Follow Up Plan Adult BMI F ollow Up Plan [facility] Start: 02-04-1978 Adult BMI Screening Adult BMI Screen ing [facility] Start: 02-04-1978 Diabetic foot examination Diabetic Foot Exam [facility] Start: 1972 Depression Screening Depression Scre ening [facility] Start: 1972 Tobacco Screening Tobacco Screening [facility] Start: 1960 Glaucoma screening Diabetic Op hthalmology Exam [facility] Start: 1960 Statin Use: Cardiovascular Statin Use: Cardiovascular [facility] Start: 1960 Statin Use: Diabetic Statin Use: Katie betic [facility] Anion gap measurement [facility] Erythrocyte distribu tion width [Ratio] by Automated count [facility] Erythrocytes [#/volu me] in Blood [facility] Glomerular filtratio n rate [Volume Rate/Area] in Serum, Plasma or Blood by Creatinine [facility] Hematocrit [Volume Fraction] of Blood [facility] Hemoglobin [Mass/vol ume] in Blood [facility] Leukocytes [#/volume ] corrected for nucleated erythrocytes in Blood by Automated coun [facility] MCH [Entitic mass] b y Automated count [facility] MCHC [Mass/volume] b y Automated count [facility] MCV [Entitic volume] by Automated count [facility] Patient referral [facility] Platelet mean volume [Entitic volume] in Blood by Automated count [facility] Platelets [#/volume] in Blood [facility] X[facility] - [facility] Wrist - right GE 3 Views [facility] [facility] Immunization Date Immunization Notes Care Provider Fa cili 01-29-2020 influenza virus vacc ine, unspecified formulation Nima Lee MD Work Phone: [facility] 02-10-2017 tetanus toxoid, redu jennifer diphtheria toxoid, and acellular pertussis vaccine, adsorbed Nima Lee MD Work Phone: [facility] 05-27-2015 influenza, seasonal, injectable Kike Pollack Other [facility] 05-27-2015 pneumococcal polysaccharide vaccine, 23 valent Kike Pollack Other [facility] Payers Date Payer Category Payer Self-pay [id number] 2020 Unknown [id number] 2017 [employer] [facility] Other ANTH [id number]. [id number] 1960 Unknown [id number] 2.16.840.1.880346.3.579. 2.647 1960 Unknown [id number] 2.16.840.1.806031.3.579. 2.732 1960 Unknown [id number] 2.16.840.1.189234.3.579. 2.593 1960 Unknown [id number] 2.16.840.1.383490.3.579. 2.593 1960 Unknown [id number] 2.16.840.1.481123.3.579. 2.593 1960 Unknown [id number] 2.16.840.1.002113.3.579. 2.593 1960 Unknown [id number] 2.16.840.1.071533.3.579. 2.593 1960 Unknown [id number] 2.16.840.1.188483.3.579. 2.593 1960 Unknown [id number] 2.16.840.1.247382.3.579. 2.593 1960 Unknown [id number] 2.16.840.1.351031.3.579. 2.593 1960 Unknown [id number] 2.16.840.1.337250.3.579. 2.593 1960 Unknown [id number] 2.16.840.1.425970.3.579. 2.593 1960 Unknown [id number] 2.16.840.1.673441.3.579. 2.593 1960 Unknown [id number] 2.16.840.1.897215.3.579. 2.593 1960 Unknown [id number] 2.16.840.1.647208.3.579. 2.593 1960 Unknown [id number] 2.16.840.1.808511.3.579. 2.593 1960 Unknown [id number] 2.16.840.1.615274.3.579. 2.593 1960 Unknown [id number] 2.16.840.1.102016.3.579. 2.593 1960 Unknown [id number] 2.16.840.1.868249.3.579. 2.593 1960 Unknown [id number] 2.16.840.1.815084.3.579. 2.593 1960 Unknown [id number] 2.16.840.1.598766.3.579. 2.593 1960 Unknown [id number] 2.16.840.1.867845.3.579. 2.593 1960 Unknown [id number] 2.16.840.1.137197.3.579. 2.593 1960 Unknown [id number] 2.16.840.1.943270.3.579. 2.593 1960 Unknown [id number] 2.16.840.1.795648.3.579. 2.593 1960 Unknown [id number] 2.16.840.1.538669.3.579. 2.593 1960 Unknown [id number] 2.16.840.1.212767.3.579. 2.593 1960 Unknown [id number] 2.16.840.1.609771.3.579. 2.593 1960 Unknown [id number] 2.16.840.1.152220.3.579. 2.593 1960 Unknown [id number] 2.16.840.1.673207.3.579. 2.593 1960 Unknown [id number] 2.16.840.1.884914.3.579. 2.593 1960 Unknown [id number] 2.16.840.1.773882.3.579. 2.593 1960 Unknown [id number] 2.16.840.1.892813.3.579. 2.593 1960 Unknown [id number] 2.16.840.1.917737.3.579. 2.593 1960 Unknown [id number] 2.16.840.1.910468.3.579. 2.593 1960 Unknown [id number] 2.16.840.1.841899.3.579. 2.593 1960 Unknown [id number] 2.16.840.1.729896.3.579. 2.593 1960 Unknown [id number] 2.16.840.1.471544.3.579. 2.593 1960 Unknown [id number] 2.16.840.1.076235.3.579. 2.593 1960 Unknown [id number] 2.16.840.1.476388.3.579. 2.593 1960 Unknown [id number] 2.16.840.1.391915.3.579. 2.593 1960 Unknown [id number] 2.16.840.1.516620.3.579. 2.593 1960 Unknown [id number] 2.16.840.1.102071.3.579. 2.593 1960 Unknown [id number] 2.16.840.1.740905.3.579. 2.593 1960 Unknown [id number] 2.16.840.1.290696.3.579. 2.593 1960 Unknown [id number] 2.16.840.1.557424.3.579. 2.593 1960 Unknown [id number] 2.16.840.1.293564.3.579. 2.1286 1960 Unknown [id number] 2.16.840.1.143287.3.579. 2.1286 1960 Unknown [id number] 2.16.840.1.422124.3.579. 2.1286 1960 Unknown [id number] 2.16.840.1.623845.3.579. 2.1286 1960 Unknown [id number] 2.16.840.1.622232.3.579. 2.1286 1960 Unknown [id number] 2.16.840.1.088752.3.579. 2.1286 1960 Unknown [id number] 2.16.840.1.418824.3.579. 2.1286 1960 Unknown [id number] 2.16.840.1.054890.3.579. 2.1286 1960 Unknown [id number] 2.16.840.1.438899.3.579. 2.1286 1960 Unknown [id number] 2.16.840.1.996392.3.579. 2.1286 1960 Unknown [id number] 2.16.840.1.542061.3.579. 2.1286 1959 Unknown [id number] Medicare Self Pay [id number] Medicare Medicare [id number] Unknown [id number] 2.16.840.1.246588.3.579. 2.531 Unknown [id number] 2.16.840.1.037215.3.579. 2.531 Social History Date Type Detail Facility Tobacco smoking stat [facility] Unknown if ever smoked [facility] Start: 1960 Sex Assigned At Male F [facility] Start: 08-18-2020 Tobacco smoking stat [facility] Unknown if ever smoked [facility] Start: 08-22-2020 Tobacco smoking stat us [facility] Never smoked tobacco (finding) [facility] Start: 06-09-2020 End: 02-27-2024 Sex Assigned At [facility] [employer] Other Start: 02-10-2017 End: 12-31-2024 Tobacco smoking status [facility] End: 02-11-2016 History of tobacco use [facility] End: 02-11-2016 History of tobacco use [facility]arette [facility] Start: 02-10-2017 Tobacco use and exposure Smokeless tobacco [facility]-user [facility] Start: 02-27-2024 Alcoholic beverage intake Current non-drinker of alcohol (finding) [facility] Start: 06-09-2020 End: 02-27-2024 History of Social function [facility] [employer] [facility] [facility] Start: 1960 Sex assigned at Not on file [facility] [facility] [facility] Start: 12-02-2014 End: 08-29-2024 Sex Male (finding) [facility] Start: 01-15-2025 SDOH Follow up SDOH Follow up [facility] Work Phone: Medical Equipment Procedure Code Equipment Code Equipment Origin al Text Equipment Identifier Dates ORIF, hip Orthopaedic fixa tion plate, non-bioabsorbable, sterile ()[id number] FDA Start: 12-24-2024 ORIF, hip Orthopaedic bone screw, non-bioabsorbable, non-sterile ()[id number] FDA Start: 12-24-2024 ORIF, hip Orthopaedic bone screw, non-bioabsorbable, non-sterile ()[id number] FDA Start: 12-24-2024 ORIF, hip Orthopaedic bone screw, non-bioabsorbable, non-sterile ()[id number] FDA Start: 12-24-2024 ORIF, hip Orthopaedic bone screw, non-bioabsorbable, non-sterile ()[id number] FDA Start: 12-24-2024 ORIF, hip Femur nail, sterile ( [id number] FDA Start: 12-24-2024 ORIF, hip Spiral blade ([id number] FDA Start: 12-24-2024 Goals Date Patient Goal Desired Activity /State Functional Status Date Assessment Result Facility 08-25-2020 Functional status Patient at Baseline [facility] Mental Status Date Assessment Result Facility 08-25-2020 Cognitive function Cognitive Sta tus Patient at Baseline [facility] Clinical Notes 07-15-2020 to 01-19-2025 Colton Kiransteven, DO - 01/19/2025 11:59 PM EDT Note Date & Type Note Facility 01-19-2025 History of Present illness Narrative Patient Name: Rashard Lyman Date of : 1960 Date of Service: 01/19/2025 Facility: [facility] Type of Visit: Admission H&P Subjective Rashard Lyman is a 64 y.o. male seen today at long-term facility for admission H&P. Rash[facility]. He has a fairly complex medical history. He recently fell and fractured his right hip. He had intensive inpatient therapy following his hospital stay at [facility]. He requires physical therapy as he can [...] 06/05/2019 Performed by Jefferson Bryant MD at [facility] Right 5th TONSILLECTOMY Family [...] Chronic obstructive pulmonary disease, unspecified COPD type ([facility]) 3. End stage renal disease ([facility]) 4. Dependence on renal dialysis 5. Peripheral vascular disease, unspecified 6. Acquired absence of left foot ([facility]) 7. Acquired absence of right foot ([facility]) 8. Type 2 diabetes mellitus with diabetic neuropathy, with long-term current use of insulin ([facility]) 9. Hyperlipidemia, unspecified hyperlipidemia type 10. Gastroesophageal reflux disease, unspecified whether esophagitis present 11. Psoriasis, unspecified Admit to [facility]. Continue current regimen. Therapy evaluation. Full code. Continue dialysis. He is using high risk medication with benefit. Can not take NSAIDs. Continue midodrine 10 mg twice a day for hypotension. Good rehab potential. ELECTRONICALLY SIGNED BY: Colton Lamb DO documented in this encounter [facility] 12-23-2024 Evaluation note Diagnosis Onset Date Resolution [...] 23, 2024 2:49am Diabetes chronic December 23, 025 2:49am 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 chronic A ugust 2024 2:49am GERD (gastroesophageal reflux disease) chronic December 23 2:49am Hypertension chronic December 23, 2024 2:49am [facility] Work Phone: 1(898) 324-564708-27-2025 Evaluation note* Diagnosis Onset Date Resolution Status [...] December 23, 2024 2:49am Diabetes chronic December 23 025 2:49am 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 chronic A ugust 2024 2:49am GERD (gastroesophageal reflu x disease) chronic December 23 2:49am Hypertension chronic December 23, 2024 2:49am Anemia of renal disease acute 2024 4:06pm Diabetic neuropathy acute 2024 4:06pm End-stage renal disease need ing dialysis December 30, 2 025 4:06pm Hip fracture acute December 4:06pm Hypertensive kidney disease with chronic kidney disease stage V acute 2024 4:06pm Intertrochanteric fracture o f right hip acute December 30, 2 025 4:06pm Radius distal fracture acute Se pt2024 4:06pm 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 December 30, 2024 4:06pm COPD (chronic obstructive pulmonary disease) december 4:06pm GERD (gastroesophageal reflu x disease) December 30, 2 025 4:06pm Hypertension december 4:06pm [facility] Work Phone: 1(334) 430-909208-27-2025 Evaluation note* Diagnosis Onset Date Resolution Status [...] chronic kidney disease stage V acute December 23 2:49am Intertrochanteric fracture o f right hip acute December 23 2:49am Metabolic acidosis acute December 23, 2024 2:49am Pre-operative cardiovascular examination acute December 23 2:49am Psoriasis acute December 23, 2 025 2:49am Radius distal fracture acute Au marii 2024 2:49am 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 acute December 23 2:49am COPD (chronic obstructive pulmonary disease) chronic December 23, 2024 2:49am Diabetes chronic December 23, 025 2:49am 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 chronic A ugust 2024 2:49am GERD (gastroesophageal reflu x disease) chronic December 23 2:49am Hypertension chronic December 23, 2024 2:49am Anemia of renal disease acute S epte2024 4:06pm Diabetic neuropathy acute Septe mb2024 4:06pm End-stage renal disease needing dialysis acute December 30, 2024 4:06pm Hip fracture acute December 4:06pm Hypertensive kidney disease with chronic kidney disease stage V acute December 30, 2 025 4:06pm Intertrochanteric fracture o f right hip acute December 30, 2 025 4:06pm Radius distal fracture acute Se ptember 2024 4:06pm 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 acute December 30, 025 4:06pm COPD (chronic obstructive pulmonary disease) chronic December 4:06pm GERD (gastroesophageal reflu x disease) chronic December 30, 2 025 4:06pm Hypertension chronic December 4:06pm Intertrochanteric fracture o f right hip acute February 01 10:59am Radius distal fracture acute Oc tob2024 10:59am 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 Work Phone: 1(412) 269-624310-31-2024 Evaluation + Plan note* Assessment & Plan Note - Nima Lee MD - 02/27/2024 11:44 AM EDTAssociated Problem(s): Critical limb ischemia of left lower extremity with gangrene ([facility]) PVR [facility]10-31-2024 Miscellaneous Notes* Assessment & Plan Note - Nima Lee MD - 02/27/2024 11:44 AM EDTAssociated Problem(s): Critical limb ischemia of left lower extremity with gangrene ([facility]) PVR [facility] History of Present illness Narrative* Nima Lee [...] 06/05/2019 Performed by Jefferson Bryant MD at [facility] Right 5th TONSILLECTOMY Social [...] Plan SUDARSHAN Munoz was seen today for rnp-foot wound- left- no testing. Diagnoses and all [...] you for your understanding. [facility] NotePROCEDURE: XR FOOT LT MIN 3 VIEWS [...] Electronically authenticated by: PRISCA SANDERSON Date: 2022-08-20 13:00[facility]04-19-2023 NoteEXAM: XR CHEST 2 V HISTORY: [...] Electronically authenticated by: CHINO CABALLERO Date: 2022-08-15 15:06[facility]04-05-2023 NotePROCEDURE: XR FOOT LT MIN 3 [...] Electronically authenticated by: JAMESON SALGUERO Date: 2022-08-01 07:49[facility] [id number] NoteCONSULTATION CONSULTATION DATE: 03/01/2022 This is a [...] with certain activities such as standing, walking, bar steward and evening hours, and changes in the [...] patient agrees with the plan of care.[facility] [id number] NoteCONSULTATION PROCEDURE DATE: 03/01/2022 PREOPERATIVE DIAGNOSIS: Right [...] fan-like pattern and patient tolerated procedure well.[facility] CenterSinzkmue26-87-4550 NotePROCEDURE: XR ANKLE LT MIN 3 V, [...] Electronically authenticated by: PRISCA SANDERSON Date: 2021-12-22 10: [facility] [id number] NotePROCEDURE: XR ANKLE LT MIN 3 V, [...] Electronically authenticated by: PRISCA SANDERSON Date: 2021-12-22 10:[facility]08-26-2022 NotePROCEDURE: XR ANKLE LT MIN 3 V, [...] authenticated by: PRISCA SANDERSON Date: 2021-12-22 10:12[facility] [id number] NotePROCEDURE: XR ANKLE LT 2V HISTORY: Pain ; left ankle external fixation application COMPARISON: None. FINDINGS: BONES:3 intraoperative spot fluoroscopic images demonstrate external fixation device surrounding the left ankle. IMPRESSION: External fixation device application. Electronically authenticated by: PRISCA SANDERSON Date: 2021-12-22 10:07[facility] CenterGaivtyry35-30-4558 NotePROCEDURE: XR FOOT LT MIN 3 VIEWS [...] authenticated by: PRISCA SANDERSON Date: 2021-12-12 08:04 [facility] [id number] NoteCONSULTATION The patient returns to the clinic [...] up in clinic in three months' time.[facility] [id number] NoteCONSULTATION CONSULTATION DATE: 11/22/2021 HISTORY OF PRESENT [...] return to the clinic to receive those.[facility] [id number] NotePROCEDURE: XR FOOT LT MIN 3 VIEWS [...] Electronically authenticated by: PRISCA SANDERSON Date: 2021-11-14 15:42[facility]07-12-2022 NotePROCEDURE: XR FOOT LT MIN 3 VIEWS [...] Electronically authenticated by: JAMESON SALGUERO Date: 2021-11-07 19:28[facility]11-23-2021 Evaluation note* Encounter Date Diagnosis Assessment [...] takes midodrine as well as stated above. [employer] Other 03-27-2021 NoteMR#: [id number] I [facility] Pt. Name: Rashard Lyman Admitted: [...] chest pain. Also, there is mention on [place] records of large inferior/lateral wall abnormality in [...] ON DISCHARGE: A (more content not included)...[facility]03-19-2021 NoteMR#: [id number] [facility]. Name: Rashard Lyman Surgery Date: 07/14/2020 Room #: [id number] Date of : 1960 PROCEDURE NOTE ATTENDING: [...] Pham MD Date Trans: 07/15/2020 01:32 P/ [id number] cc: Nima Wynne MD [address] [place] [address] NoteMR#: [id number] [facility] Pt. Name: Rashard Lyman Surgery Date: 07/14/2020 Room #: [id number] Date of : 1960 PROCEDURE NOTE ATTENDING: Nima Wynne MD Procedure: Left sided US guided Thoracentesis Pre-procedure Diagnosis: Left pleural effusion Post-procedure Diagnosis: same as above Prior to Procedure: Informed Consent:The risks, benefits, indications, potential complications, and alternatives were explained to the patient/family and informed consent obtained Attending Staff: Nima Wynne Resident/Fellow/PROJECT SPECIALIST: Davis Pham Indications: Nura Munoz is 60 [...] Wynne MD Date Trans: 07/15/2020 12:53 P/ [id number] [facility]Evaluation [facility]* Diagnosis Onset Date Resolution Status Hyperglycemia acute Pneumonia acute Psoriasis acute 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 acute CKD (chronic kidney disease) stage 4, GFR 15-29 ml/min chronic COPD (chronic obstructive pulmonary disease) chronic 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 GERD (gastroesophageal reflux disease) chronic Obesities, morbid chronic Peripheral vascular occlusive disease chronic 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 [facility] Diagnosis Onset Date Resolution [...] (chronic obstructive pulmonary disease) chronic 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 GERD (gastroesophageal reflux disease) chronic Hypertension chronic [id number] chronic Obesities, morbid chronic Peripheral vascular occlusive disease chronic 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 [facility]* Diagnosis Critical limb ischemia of left lower extremity with gangrene ([facility] Primary documented [facility] this encounter [facility] SystemEvaluation noteNo assessment information available [facility] Work Phone: Evaluation note* Diagnosis Critical limb ischemia of left lower extremity with gangrene ([facility])- Primary Unspecified trochanteric fracture of right femur, subsequent encounter for closed fracture with routine healing- Primary Chronic obstructive pulmonary disease, unspecified COPD type ([facility]) End stage renal disease ([facility]) End stage renal disease Dependence on renal dialysis Renal dialysis status Peripheral vascular disease, unspecified Acquired absence of left foot ([facility]) Acquired absence of right foot ([facility]) Type 2 diabetes mellitus with diabetic neuropathy, with long-term current use of insulin ([facility]) Hyperlipidemia, unspecified hyperlipidemia type Gastroesophageal reflux disease, unspecified whether esophagitis present Psoriasis, unspecified documented in this encounter [facility] SystemHistory general Narrative - Reported* Type [...] HIS LOWER BACK Hospitalization History see above [employer] Other Hospital Discharge instructions Additional Instructions You are scheduled for an outpatient follow up ECHOCARDIOGRAM in 2 weeks at [facility] to re-assess your pericardial effusions on [...] knee Educate on high risk fall precautions [facility] Dis[facility] instructions[facility]trHospital Discharge instructions[facility] InstructionsNot on filedocumented in this encounterC[facility] InstructionsNot on filedocumented in this encounterC[facility] Clinic [facility] SystemReason for referral (narrative)No reason for referral information availableThe [facility] Work Phone: Assessments No Assessments Information Available Advance Directives Advance Directive Response Recorded Date/ Time Advance Directives No September 30 8 3:34pm Date Activated Date Inactivated Comments 09/30/2017 [...] 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 GERD (gastroesophageal reflux disease) Hypertension [id number] Obesities, morbid Peripheral vascular occlusive disease Status [...] 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 GERD (gastroesophageal reflux disease) Hypertension [id number] Obesities, morbid Peripheral vascular occlusive disease Status [...] 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 GERD (gastroesophageal reflux disease) Hypertension [id number] Obesities, morbid Peripheral vascular occlusive disease Status [...] Admit Date MARISOL (acute kidney injury) December 23 2:49am CKD (chronic kidney disease) stage 5, [...] eleva keith tropon December 30, 2024 12:00am RT IT Hip Fx s/p TFN/RT Distal Radius Fx s/p ORIF December 30, 2024 4:06pm RT IT Hip Fx s/p TFN/RT Distal Radius Fx s/p ORIF January 06, 2025 12:00am RT IT Hip Fx s/p TFN/RT Distal Radius Fx s/p ORIF January 13, 2025 12:00am Reason for Visit Admit Date MARISOL (acute kidney injury) December 23, 025 2:49am CKD (chronic kidney disease) stage [...] 2: 49am Anemia of renal disease December 30, 025 4:06pm Diabetic neuropathy December 30, 2024 4:06pm [...] 2024 4:06pm GERD (gastroesophageal reflux disease) [facility] 20[facility] 4:06pm Hypertension December 30, 2024 4:06pm Chief Complaint Admit Date right hip fracture, renal failure, isabell sheppard [...] Fx s/p ORIF January 13, 2025 12:00am HOSP F/U February 01, 2025 10 :59am Reason for Visit Admit Date MARISOL (acute kidney injury) December 23, 025 2:49am CKD (chronic kidney disease) stage [...] 2: 49am Anemia of renal disease December 30, 2 025 4:06pm Diabetic neuropathy December 30, 2024 4:06pm [...] 2024 4:06pm Hypertension December 30, 2024 4:06pm Intertrochanteric fracture of right hip February 01, 2025 10:59am Radius distal fracture February 01, 2025 10:59am 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 February 01, 2025 10:59am Other specified postprocedural states Oc tober 2024 10:59am Summary Purpose Family History Relationship Condition Age [...] and content) DATE CREATED AUTHOR 09/11/2020 [facility] DATE CREATED AUTHOR AUTHOR'S ORGANIZ ATION 10/21/2020 [facility] [employer] DATE CREATED AUTHOR AUTHOR'S ORGANIZ ATION 10/05/2022 [facility] DATE CREATED AUTHOR AUTHOR'S ORGANIZ ATION 06/03/2023 [facility] DATE CREATED AUTHOR AUTHOR'S ORGANIZ ATION 11/22/[address] [facility] DATE CREATED AUTHOR AUTHOR'S ORGANIZ ATION 02/18/2024 [facility] DATE CREATED AUTHOR AUTHOR'S ORGANIZ ATION 01/29/2025 [facility] Goals (unrecognized section and content) Goals may be documented in a n alternate sectionNo InformationNot on filedocumented as of this encounterGoals may be documented in an alternate sectionGoals may be documented in an alternate sectionGoals may be documented in an alternate sectionGoals may be documented in an alternate sectionNot on filedocumented as of this encounterGoals may be documented in an alternate section REASON FOR VISIT (unrecogniz ed section and content) Reason Comments 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 Non healing. Care Teams (unrecognized sec tion and content) Team Status: Active Member Role Status Dates Jose Juarez JR DO Primary Care Provider Active Team Status: Active Member Role Status Dates Jose Juarez JR DO Primary Care Provider Active Start: December 23, 2024 Enrique Yang MD Admit Provider Active Start: December 23, 2024 Leno Dela Cruz MD Other Provider Active Start: December 23, 2024 Carie Abraham MD Other Provider Active Start: Au 2024 Love Moody LPN Other Provider Active Star t: December 23, 2024 Ari Batista MD Attending Provider Active S tart: December 23, 2024 Ari Batista MD Other Provider Active Start : December 23, 2024 CHAD Jiménez Other Provider Active S tart: December 23, 2024 Nima Lee MD Other [...] Abraham MD Other Provider Active Start: Se pt2024 Love Moody LPN Other Provider Active Star t: December 30, 2024 rAi Batista MD Other Provider Active Start : December 30, 2024 CHAD Jiménez Other Provider Active S tart: December 30, 2024 Nima Lee MD Other [...] Mya Callahan MD Other Provider Active Start: Se ptember 2024 Clayton Cardenas MD Other Provider Active Start: S eptember 2024 Aleta Jensen APRN Other Provider Active St art: December 30, 2024 Doc Shankar MD Other Provider Active Start: December 30, 2024 Raimundo Mcclure MD Attending Provider Active Star t: December 30, 2024 Team Status: Active Member Role Status Dates Jose Juarez JR DO Primary Care Provider Active Start: December 30, 2024 Clayton Cardenas MD Admit Provider Active Start: S eptember 2024 Clayton Cardenas MD Attending Provider Active Star t: December 30, 2024 Clayton Cardenas MD Other Provider Active Start: S eptember 2024 Marlena Quintero , JOANNE Other Provider Active Star t: December 30, 2024 Yudy Richter , JOANNE Other Provider Active Start : December 30, 2024 Denise Gold , JOANNE Other Provider Active Star t: December 30, 2024 Diana Douglass , JOANNE Other Provider Active Start: S eptember 2024 Meme Cochran , JOANNE Other Provider Active Start: Se ptember 2024 Brigitte Cardenas RN Other Provider Active Start: S eptember 2024 Sukumar Patricio MD Other Provider Active Start: December 30, 2024 Doug Joseph DO Other Provider Active Start : December 30, 2024 Dinesh Cervantes MD Other Provider Active Start : December 30, 2024 Eugene Morel DO Other Provider Active Start: December 30, 2024 Enrique Yang MD Other Provider Active Start: December 30, 2024 Liza Rod MD Other Provider Active Start : December 30, 2024 Bryan Cordova DO Other Provider Active St art: December 30, 2024 Dewayne Godwin MD Other Provider Active Start: S eptember 2024 Ita Orellana APRN Other Provider Active Start: December 30, 2024 Vishal Aguirre MD Other Provider Active Start: December 30, 2024 Krystal Rodriguez MD Other Provider Active Start: December 30, 2024 Henrry Manning MD Other Provider Active Start: December 30, 2024 Bryan James DO Other Provider Active Start: December 30, 2024 Idalia Bryan MD Other Provider Active Start: pt2024 Nazario Baez MD Other Provider Active Start: Dec Patricia Carmona , TRANSCRIPT EVALUATOR-C Other Provider Active St art: December 30, [...] Active Start: December 30, 2024 Zaid June DO Other Provider Active Start: December 30, [...] Talavera MD Other Provider Active Start: S epteer 2024 Mary Pichardo APRN Other Provider Active Sta rt: December 30, 2024 Shon Negron APRN Other Provider Active Start: December 30, 2024 Fanta Thapa , JOANNE Other Provider Active Start: S eptember 2024 Kike Pollack MD Other Provider Active Start: S eptemb2024 KELLEY KaurC Other Provider Active Start: December 30, 2024 Carie Abraham MD Other Provider Active Start: Se pt2024 Raimundo Mcclure MD Other Provider Active Start: ep2024 Team Status: Active Member Role Status Dates Jose Juarez JR DO Primary Care Provider Active Start: January 06, 2025 Clayton Cardenas MD Admit Provider Active Start: ep2024 Clayton Cardenas MD Other Provider Active Start: S ep2024 Marlena Quintero RN Other Provider Active Star t: January 06, 2025 Yudy Richter , JOANNE Other Provider Active Start : January 06, 2025 Denise Gold , JOANNE Other Provider Active Star t: January 06, 2025 Diana Douglass , JOANNE Other Provider Active Start: S 2024 Meme Cochran , JOANNE Other Provider Active Start: pt2024 Brigitte Cardenas RN Other Provider Active Start: ep2024 Sukumar Patricio MD Other Provider Active Start: January 06, 2025 Doug Joseph DO Other Provider Active Start : January 06, 2025 Dinesh Cervantes MD Other Provider Active Start : January 06, 2025 Eugene Morel DO Other Provider Active Start: January 06, 2025 Enrique Yang MD Other Provider Active Start: January 06, 2025 Liza Rod MD Other Provider Active Start : January 06, 2025 Bryan Cordova DO Other Provider Active St art: January 06, 2025 Dewayne Godwin MD Other Provider Active Start: S epmb2024 Ita Orellana APRN Other Provider Active Start: [...] Active Start: January 06, 2025 Zaid June DO Other Provider Active Start: January 06, [...] Talavera MD Other Provider Active Start: S ep2024 Mary Pichardo APRN Other Provider Active Sta rt: January 06, 2025 Shon Negron APRN Other Provider Active Start: January 06, 2025 Fanta Thapa RN Other Provider Active Start: S epmb2024 Kike Pollack MD Other Provider Active Start: S ep2024 Elizabeth Monroe NP-C Other Provider Active Start: January 06, 2025 Carie Abraham MD Other Provider Active Start: Se ptember 2024 Raimundo Mcclure MD Other Provider Active Start: S ep2024 Aleta Jensen APRN Attending Provider Active Start: January 06, 2025 Team Status: Active Member Role Status Dates Jose Juarez JR DO Primary Care Provider Active Start: January 13, 2025 Clayton Cardenas MD Admit Provider Active Start: S ep2024 Clayton Cardenas MD Attending Provider Active Star t: January 13, 2025 Clayton Cardenas MD Other Provider Active Start: S ep2024 Marlena Quintero RN Other Provider Active Star t: January 13, 2025 Yudy Richter RN Other Provider Active Start : January 13, 2025 Denise Gold RN Other Provider Active Star t: January 13, 2025 Diana Douglass RN Other Provider Active Start: S ep2024 Meme Cochran RN Other Provider Active Start: Se ptember 2024 Brigitte Cardenas RN Other Provider Active Start: S epte2024 Sukumar Patricio MD Other Provider Active Start: January 13, 2025 Doug Joseph , Other Provider Active Start : January 13, [...] Dewayne Godwin MD Other Provider Active Start: S eptember 2024 Ita Orellana APRN Other Provider Active Start: January 13, 2025 Vishal Aguirre MD Other Provider Active Start: January 13, 2025 Krsytal Rodriguez MD Other Provider Active Start: January 13, 2025 Henrry Manning MD Other Provider Active Start: January 13, 2025 Bryan James DO Other Provider Active Start: January 13, 2025 Idalia Bryan MD Other Provider Active Start: pt2024 Nazario Baez MD Other Provider Active Start: Dec KELLEY WoodC Other Provider Active St art: January 13, 2025 Nick Jerez APRN Other Provider Active Star t: January 13, 2025 Toribio Best MD Other Provider Active Start: January 13, 2025 David Houston MD Other Provider Active Start: pt2024 Ac Tineo MD Other Provider Active Star [...] Provider Active Start: January 13, 2025 Leno Dlea Cruz MD Other Provider Active Start: January 13, 2025 Cici Reilly MD Other Provider Active Start: December Ericka Otto APRN Other Provider Active Star t: January 13, 2025 Talia Pinedo MD Other Provider Active Start: S [facility] 2024 Clayton Ramsey MD Other Provider Active Start: January 13, 2025 Dewayne Akbar MD Other Provider Active Start : January 13, 2025 Josemanuel Talavera MD Other Provider Active Start: S [facility] 2024 Mary Pichardo APRN Other Provider Active Sta rt: January 13, 2025 Shon Negron APRN Other Provider Active Start: January 13, 2025 Fanta Thapa RN Other [facility] Kike Pollack MD Other Provider Active Start: [facility] 2024 CHAD Kaur Other Provider Active Start: January 13, 2025 Carie Abraham MD Other Provider Active Start: [facility]2024 Raimundo Mcclure MD Other Provider Active Start: [facility] 2024 Team Status: Inactive Member Role Status Dates Jose Juarez JR DO Primary Care Provider Active Start: February 01, 2025 End: February 01, 2025 Wilfrido Montez DO Attending Provider Active S tart: February 01, 2025 End: February 01, 2025 Team Status: Active Member Role Status [...] Carie Abraham MD Other Provider Active Start: marii 2024 Love Moody LPN Other Provider Active [...] Active Start: A ugust 2024 Aleta Jensen , QUALITY IMPROVEMENT SPECIALIST Other Provider Active St art: December 23, [...] Abraham MD Other Provider Active Start: Se pt2024 Love Moody LPN Other Provider Active Star t: December 30, 2024 Ari Batista MD Other Provider Active Start : December 30, 2024 Alyssia Batista , TRANSCRIPT EVALUATOR-C Other Provider Active St art: December 30, [...] Mya Callahan MD Other Provider Active Start: Se pt2024 Clayton Cardenas MD Other Provider Active Start: S eptember 2024 Aleta Jensen , QUALITY IMPROVEMENT SPECIALIST Other Provider Active St art: December 30, 2024 Doc Shankar MD Other Provider Active Start: December 30, 2024 Raimundo Mcclure MD Attending Provider Active Star t: December 30, 2024 Watch Manufacturing Supervisor Relationship Specialty Start Date End Date Jose Juarez Jr., DO [address] [place], [place] [id number] PCP - General Internal Medicine 02/10/17 Team [...] Active Start: S eptember 2024 Marlena Quintero , JOANNE Other Provider Active Star t: December 30, 2024 Yudy Richter , JOANNE Other Provider Active Start : December 30, 2024 Denise Gold RN Other Provider Active Star t: December 30, 2024 Diana Douglass , JOANNE Other Provider Active Start: S eptember 2024 Meme Cochran RN Other Provider Active Start: Se pt2024 Brigitte Cardenas RN Other Provider Active Start: S eptember 2024 Sukumar Patricio MD Other Provider Active Start: December 30, 2024 Doug Joseph DO Other Provider Active Start : December 30, 2024 Dinesh Cervantes MD Other Provider Active Start : December 30, 2024 Eugene Morel DO Other Provider Active Start: December 30, 2024 Enrique Yang MD Other Provider Active Start: December 30, 2024 Liza Rod MD Other Provider Active Start : December 30, 2024 Bryan Cordova DO Other Provider Active St art: December 30, 2024 Dewayne Godwin MD Other Provider Active Start: S eptember 2024 Ita Orellana APRN Other Provider Active Start: December 30, 2024 Vishal Aguirre MD Other Provider Active Start: December 30, 2024 Krystal Rodriguez MD Other Provider Active Start: December 30, 2024 Henrry Manning MD Other Provider Active Start: December 30, 2024 Bryan James DO Other Provider Active Start: December 30, 2024 Idalia Bryan MD Other Provider Active Start: Se ptember 2024 Nazario Baez MD Other Provider Active Start: Sep tember 2024 Patricia Carmona , TRANSCRIPT EVALUATOR-C Other Provider Active St art: December 30, 2024 Nick Jerez APRN Other Provider Active Star t: December 30, 2024 Toribio Best MD Other Provider Active Start: December 30, 2024 David Houston MD Other Provider Active Start: pt2024 Ac Tineo MD Other Provider Active Star t: December 30, 2024 Son Hampton DO Other Provider Active Start : December 30, 2024 Ghislaine Fields APRN Other Provider Active Start: December 30, 2024 Zaid June DO Other Provider Active Start: December 30, [...] Carie Abraham MD Other Provider Active Start: 2024 Raimundo Mcclure MD Other Provider Active Start: 2024 Team Status: Active Member Role Status Dates Jose Juarez JR DO Primary Care Provider Active Start: January 06, 2025 Clayton Cardenas MD Admit Provider Active Start: 2024 Clayton Cardenas MD Other Provider Active Start: 2024 Marlena Quintero , JOANNE Other Provider Active Star t: January 06, 2025 Yudy Richter , JOANNE Other Provider Active Start : January 06, 2025 Denise Gold RN Other Provider Active Star t: January 06, 2025 Diana Douglass RN Other Provider Active Start: 2024 Meme Cochran , JOANNE Other Provider Active Start: 2024 Brigitte Cardenas RN Other Provider Active Start: 2024 Sukumar Patricio MD Other Provider Active Start: January 06, 2025 Doug Joseph DO Other Provider Active Start : January 06, 2025 Dinesh Cervantes MD Other Provider Active Start : January 06, 2025 Eugene Morel DO Other Provider Active Start: January 06, [...] Nazario Baez MD Other Provider Active Start: Sep tember 2024 Patricia Carmona NP-C Other Provider Active St art: January 06, 2025 Nick Jerez APRN Other Provider Active Star t: January 06, 2025 Toribio Best MD Other Provider Active Start: January 06, 2025 David Houston MD Other Provider Active Start: Se ptember 2024 Ac Tineo MD Other Provider Active Star t: January 06, 2025 Son Hampton DO Other Provider Active Start : January 06, 2025 Ghislaine Fields APRN Other Provider Active Start: January 06, 2025 Zaid June DO Other Provider Active Start: January 06, [...] Other Provider Active Start: S eptember 2024 Elizabeth Runner , TRANSCRIPT EVALUATOR-C Other Provider Active Start: January 06, 2025 Carie Abraham MD Other Provider Active Start: Se pt2024 Raimundo Mcclure MD Other Provider Active Start: S ep2024 Aleta Jensen APRN Attending Provider Active Start: January 06, 2025 Team Status: Active Member Role Status Dates Jose Juarez JR DO Primary Care Provider Active Start: January 13, 2025 Clayton Cardenas MD Admit Provider Active Start: S ep2024 Clayton Cardenas MD Attending Provider Active Star t: January 13, 2025 Clayton Cardenas MD Other Provider Active Start: S 2024 Marlena Quintero , JOANNE Other Provider Active Star t: January 13, 2025 Yudy Richter , JOANNE Other Provider Active Start : January 13, 2025 Denise Gold , JOANNE Other Provider Active Star t: January 13, 2025 Diana Douglass , JOANNE Other Provider Active Start: 2024 Meme Cochran RN Other Provider Active Start: pt2024 Briigtte Cardenas RN Other Provider Active Start: S 2024 Sukumar Patricio MD Other Provider Active [...] Idalia Bryan MD Other Provider Active Start: pt2024 Nazario Baez MD Other Provider Active Start: Dec Patricia Carmona TRANSCRIPT EVALUATOR-C Other Provider Active St art: January 13, 2025 Nick Jerez APRN Other Provider Active Star t: January 13, 2025 Toribio Best MD Other Provider Active Start: January 13, 2025 David Houston MD Other Provider Active Start: pt2024 Ac Tineo MD Other Provider Active Star [...] Pollack MD Other Provider Active Start: S epteer 2024 Elizabeth Monroe NP-C Other Provider Active Start: January 13, 2025 Carie Abraham MD Other Provider Active Start: Se ptember 2024 Raimundo Mcclure MD Other Provider Active Start: S eptember 2024 Watch Manufacturing Supervisor Relationship Specialty Start Date End Date Jose Juarez Jr., DO [address] [place] [address] PCP - General Internal Medicine 02/10/17 Team Status: Active Member Role Status Dates Jose Juarez JR DO Primary Care Provider Active Start: December 23, 2024 Enrique Yang MD Admit Provider Active Start: December 23, 2024 Leno Dela Cruz MD Other Provider Active Start: December 23, 2024 Carie Abraham MD Other Provider Active Start: Au marii 2024 Love Moody LPN Other Provider Active Star t: December 23, 2024 Ari Batista MD Attending Provider Active S tart: December 23, 2024 Ari Batista MD Other Provider Active Start : December 23, 2024 Alyssia Jacobo NP-C Other Provider Active S tart: December 23, 2024 Nima Lee MD Other [...] Abraham MD Other Provider Active Start: Se pt2024 Love Moody LPN Other Provider Active Star t: December 30, 2024 Ari Batista MD Other Provider Active Start : December 30, 2024 CHAD Jiménez Other Provider Active S tart: December 30, 2024 Nima Lee MD Other [...] Mya Callahan MD Other Provider Active Start: Se 2024 Clayton Cardenas MD Other Provider Active Start: S eptember 2024 Aleta Jensen APRN Other Provider Active St art: December 30, 2024 Doc Shankar MD Other Provider Active Start: December 30, 2024 Raimundo Mcclure MD Attending Provider Active Star t: December 30, 2024 Team Status: Inactive Member Role Status Dates Jose Juarez JR DO Primary Care Provider Active Start: February 01, 2025 End: February 01, 2025 Wilfrido Montez DO Attending Provider Active S tart: February 01, 2025 End: February 01, 2025 FOR RECORDS PERTAINING TO PATIENTS WHO ARE [...] BE BASED ON THE PRIMARY CLINICAL RECORDS. [facility] [employer] provides no warranty or guarantee of the accuracy or completeness of information in this document.
== END 2025-02-02 14:49 | disposition home or self-care (01) ==
LOC: WC 14:48
PROVIDERS: PCP Internal Medicine; Visit Provider Physician Assistant
DX: E11.622 Type 2 diabetes mellitus with other skin ulcer (principal); L97.322 Non-pressure chronic ulcer of left ankle with fat layer exposed; E11.621 Type 2 diabetes mellitus with foot ulcer; L97.412 Non-pressure chronic ulcer of right heel and midfoot with fat layer exposed
CPT/HCPCS: 11043; G0463

== ENCOUNTER 2025-02-24 10:57 | Outpatient (OUT) | payer BC, SELFPAY ==
--- OUTSIDE RECORDS SUMMARY | 2025-02-24 11:01 | XMS_ITS | Clinical Summary ---
Author Organization [facility] Address [address] [place] [address] Care Team Providers Care Termite Control Service Representative Name Role Phone Jose Baron MD Primary Care Provider [phone] Social History Tobacco UseTypesPacks/DayYears UsedDateSmoking Tobacco: Never AssessedSex and Gender InformationValueDate RecordedSex Assigned at BirthNot on fileLegal Sex Male07/11/2022 7:24 PM EDTGender IdentityNot on fileSexual OrientationNot on file Last Filed Vital Signs Vital SignReadingTime TakenCommentsBlood Eqkvrggq253/7107 12:00 PM EDT Pulse--Temperature--Respiratory Rate--Oxygen Saturation--Inhaled Oxygen Concentration--Dshulg725 kg (349 lb)11/15/2020 12:00 PM ZPIHorgqa213 cm (6' 2 ) 12/29/2020 12:00 PM EDTBody Mass Index44.8111/15/2020 12:00 PM EDT Plan of Treatment Not on file Insurance Care Teams Team MemberRelationshipSpecialtyStart DateEnd Date Jose Baron MD [address] [place] [address] PCP - GeneralInternal Medicine09/07/24
--- OUTSIDE RECORDS SUMMARY | 2025-02-24 11:01 | XMS_ITS | Clinical Summary ---
Author Organization [facility] Address [address] [place] [address] Care Team Providers Care Washer Carcass Name Role Phone Unavailable Primary Care Provider Unavailabl e Social History Tobacco UseTypesPacks/DayYears UsedDateSmoking Tobacco: Never AssessedSex and Gender InformationValueDate RecordedSex Assigned at BirthNot on fileLegal Sex Male10/25/2021 11:25 PM EDTGender IdentityNot on fileSexual OrientationNot on file Last Filed Vital Signs Vital SignReadingTime TakenCommentsBlood Ikhvigek057/9207/27/2020 10:40 AM EDT Rtqtv923207/27/2020 10:39 AM EDTTemperature--Respiratory Rate--Oxygen Saturation 98%07/27/2020 10:39 AM EDTInhaled Oxygen Concentration--Pmizww521 kg (383 lb 15.9 oz)07/27/2020 10:31 AM VDOBqfsnl850 cm (6' 4 )07/27/2020 10:31 AM EDTBody Mass Index46.7407/27/2020 10:31 AM EDT Plan of Treatment Health MaintenanceDue DateLast DoneCommentsCT Glrnhlsjfvcw1960Colonoscopy 1960Colorectal Cancer Hswlugefr1960FIT-DNA1960FIT1960 FOBT1960Medicare Initial Physical (IPPE)1960 3248Nitbaryxfqxwp1960 Diabetes: Retinopathy Eldrmhnvn44/09/1970Depression Hoaabaumw77/09/1972Diabetes: Urine Protein Sohtwrimb28/09/1979Pneumococcal Vaccine: 50+ Years (1 of 2 - PCV) 02/04/1979Adult Rfqcxqy7802/04/1982Zoster Vaccines (1 of 2)02/04/2010Diabetes: Hemoglobin A1C10/14/476932/OVID-19 Vaccine (2024- season) 2024Influenza Vaccine (#1)2024Fall Risk Lkbwnwchi63/09/2025HIB VaccinesAged OutNo longer eligible based on patient's age to complete this topic HPV VaccinesAged OutNo longer eligible based on patient's age to complete this topicIPV VaccinesAged OutNo longer eligible based on patient's age to complete this topicMeningococcal B VaccineAged OutNo longer eligible based on patient's age to complete this topicMeningococcal VaccineAged OutNo longer eligible based on patient's age to complete this topicRotavirus VaccinesAged OutNo longer eligible based on patient's age to complete this topic Procedures Procedure NamePriorityDate/TimeAssociated DiagnosisCommentsHEMOGLOBIN E1DZghnhcv 07/14/2020 4:19 AM EDT from Last 3 Months or Most Recently Relevant to Health Maintenance Results * (ABNORMAL) Hemoglobin A1c (07/14/2020 4:19 AM EDT)ComponentValueRef RangeTest MethodAnalysis TimePerformed AtPathologist SignatureHemoglobin A1C11.9(H)4.0 - 6.0 %LAB CONVERSIONSEstimated Average Qqydrux274gemw/LLAB CONVERSIONSSpecimen (Source)Anatomical Location / LateralityCollection Method / VolumeCollection TimeReceived Time07/14/2020 4:19 AM EDT07/14/2020 4:47 AM EDT Narrative LAB CONVERSIONS - 07/14/2020 9:30 AM EDT No: Do not add to previous draw Authorizing ProviderResult TypeResult StatusSrini Castillo MDLAB BLOOD ORDERABLESFinal ResultPerforming OrganizationAddressCity/State/ZIP CodePhone Number LAB CONVERSIONS from Last 3 Months or Most Recently Relevant to Health Maintenance Insurance
--- OUTSIDE RECORDS SUMMARY | 2025-02-24 11:01 | XMS_ITS | Encounter Summary ---
Author Organization [facility] Address [address] [place] [address] Care Team Providers Care Commercial Carpet Installer Name Role Phone Jose Baron MD Primary Care Provider [phone] Encounter Details DateTypeDepartmentCare Team (Latest Contact Info)Tzbesotaclq18/23/2024Clinisync Result Encounter [facility] Unsolicited Ajay Archer MD [address] [place] [address] Social History Tobacco UseTypesPacks/DayYears UsedDateSmoking Tobacco: Never AssessedSex and Gender InformationValueDate RecordedSex Assigned at BirthNot on fileLegal Sex Male07/11/2022 7:24 PM EDTGender IdentityNot on fileSexual OrientationNot on filedocumented as of this encounter Plan of Treatment Not on file documented as of this encounter Procedures Procedure NamePriorityDate/TimeAssociated DiagnosisCommentsUS VENOUS DOPPLER LE LT11/19/2023 5:24 PM EDT documented in this encounter Results * US VENOUS DOPPLER LE LT (11/19/2023 5:24 PM EDT)Anatomical RegionLaterality ModalityOtherSpecimen (Source)Anatomical Location / LateralityCollection Method / VolumeCollection TimeReceived Time11/19/2023 5:24 PM EDT Narrative 11/19/2023 5:27 PM EDT [facility] ?[address] ? [place] [address] ? Ultrasound Report ? Signed ? Patient: LYMAN,RASHARD ?MR#: [id number] ?? : 1960 ?Acct:[id number] ?? Age/Sex: 63 / M ?ADM Date: 07/23/24 ?? Loc: [place] ? Attending Dr: Ajay Archer M.D. ? Ordering Physician: Ajay Archer M.D. ?? Date of Service: 11/19/23 ?? Procedure(s): US venous doppler LE LT ?? Accession Number(s): [id number] ? cc: Imer Zambrano D.P.M.; Ajay Archer M.D. ? [facility] ? [address] ? [place] [address] ? Patient Name: ?? RASHARD ??LYMAN ? MRN: [facility]:[id number] ? date: 1960 ?Sex: M ?? Assigned Patient Location: [place] ?? Current Patient Location: [place] ?? Accession/Order Number: [id number] ?? Exam Date: 11/19/2023 ??16:06 ?Report Date: 11/19/2023 ??17:24 ? At the request of: ?? AJAY ??SUZI ? Procedure: ??US venous doppler LE LT ? EXAM: US venous doppler LE LT ? HISTORY: Left Leg Swelling ? COMPARISON: 01/28/2023 ? TECHNIQUE: Multiple sonographic images of the deep veins of the left lower ?? extremity were obtained, supplemented with Doppler. ? FINDINGS: The deep veins of the left lower extremity are fairly ?? well-visualized ?? the groin to the mid calf. No filling defect is identified to indicate a ?? thrombus. There is normal compression augmentation to flow. ? Again seen are hypoechoic nodule structures in the lower calf/ankle and in the ? region of the groin. The etiology is uncertain. ? US/US venous doppler LE LT ?? IMPRESSION: ? There is no direct or indirect evidence of deep vein thrombosis in the left ?? lower extremity at this time, and similar findings were noted in the prior ?? study. ? Small nodular structures are noted in the groin and lower calf, of uncertain ?? etiology. These could conceivably be lymph nodes, and the overall appearance ?? is ?? unchanged. ? Electronically authenticated by: IMER ??ADA ?? Date: 11/19/2023 ??17:24 ? Dictated By: ?Imer Venegas M.D. ? Signed By: ?11/19/231726 ? DD/ 23 ? TD/TT: ? Boiler Repairman: Procedure Note Radiology, Radiologist, - 11/19/2023 [place] [address] Ultrasound Report Signed Patient: RASHARD LYMANMR#: [id number] : 1960Acct:[id number] Age/Sex: 63 / MADM Date: 11/19/23 Loc: [place] Attending Dr: Ajay Archer M.D. Ordering Physician: Ajay Archer M.D. Date of Service: 11/19/23 Procedure(s): US venous doppler LE LT Accession Number(s): [id number] cc: Imer Zambrano D.P.M.; Ajay Archer M.D. The [address] [place] [address] [address] Patient Name: RASHARD LYMAN MRN: [id number] date: 1960 Sex: M Assigned Patient Location: [place] Current Patient Location: [place] Accession/Order Number: [id number] Exam Date: 11/19/2023 16:06 Report Date: 11/19/2023 [...] Venegas M.D. Signed By:11/19/231726 DD/ 23 TD/TT: Boiler Repairman: Authorizing ProviderResult TypeResult StatusMarc Naderer MDCLINISYNC IMAGING Final Result documented in this encounter Visit Diagnoses Not on filedocumented in this encounter Care Teams Team MemberRelationshipSpecialtyStart DateEnd Date Jose Baron MD [facility] [place] [address] PCP - GeneralInternal Medicine09/07/24documented as of this encounter
--- OUTSIDE RECORDS SUMMARY | 2025-02-24 11:01 | XMS_ITS | Clinical Summary ---
Author Organization [facility] Address [address] [facility] [place] [place] [address] Care Team Providers Care Coke Crusher Operator Name Role Phone Unavailable Primary Care Provider Unavailabl e Source Comments The following information is NOT included in Care Everywhere downloads:Psychiatric notes, ECG results, Cardiac Rehab notes, Pulmonary Function notes, data from [employer] (includes but not limited toPregnancy data,audiograms, eye exams, pre-surgical evaluation notes, well-child exam data).[facility] Immunizations ImmunizationAdministration DatesNext DueInfluenza, injectable, high dose seasonal, trivalent, preservative free (FMG=297)01/29/2020Influenza, injectable, trivalent, preservative (PKM=402)05/27/2015Pneumococcal polysaccharide 23 Valent (PPSV23) (CVX=33)05/27/2015,03/07/2011Tdap (OGI=729)02/10/2017 Social History Tobacco UseTypesPacks/DayYears UsedDateSmoking Tobacco: Never AssessedSex and Gender InformationValueDate RecordedSex Assigned at BirthNot on fileLegal Sex Male10/20/2020 9:41 AM EDTGender IdentityNot on fileSexual OrientationNot on file Plan of Treatment Health MaintenanceDue DateLast DiowWpxrvwowMpmgfoztnay1960Hepatitis C Rawusxyy22/09/1978Hepatitis A (HAV) Vaccine (optional start 19+ years)02/04/1979 Yprwbxpirmz50/09/1995CRC Unqwjukkl66/09/2005Cologuard (Stool DNA)02/04/2005FIT 02/04/2005Shingles (RZV) Vaccine (1 of 2)02/04/2010Pneumococcal Vaccine(s) (50+ yrs) (2 of 2 - PCV), 03/07/2011Hepatitis B (HBV) Vaccine (optional start 60+ years)2020COVID-19 Vaccine (3 - 2024-26 season) 506/, 10/03/2020Influenza Vaccine (#1)/05/2019, 05/27/2015Tetanus (Td or Tdap) Xewolij81RSV vaccine (adult) (1 - 1-dose 75+ series)02/04/2035Tdap ZlzmdvjOmamyzfme88/15/2017 Insurance on file
== END 2025-02-24 10:58 | disposition home or self-care (01) ==
LOC: WC 10:58
PROVIDERS: PCP Internal Medicine; Visit Provider Physician Assistant
DX: E11.621 Type 2 diabetes mellitus with foot ulcer (principal); L97.425 Non-pressure chronic ulcer of left heel and midfoot with muscle involvement without evidence of necrosis; L97.412 Non-pressure chronic ulcer of right heel and midfoot with fat layer exposed
CPT/HCPCS: 11043

== ENCOUNTER 2025-03-15 09:39 | Outpatient (OUT) | payer BC, SELFPAY ==
--- NOTE | 2025-03-15 | XR_ITS ---
The [address] [address] Patient Name: RASHARD TAN MRN: [id number] date: 1960 Sex: M Assigned Patient Location: [facility] Current Patient Location: [facility] Accession/Order Number: [id number] Exam Date: 03/15/2025 10:10 Report Date: 03/15/2025 11:30 At the request of: THOMAS SHARP DO Procedure: XR hip RT 1V w/ pelvis CLINICAL DATA: Follow-up fractures of the right proximal femur and right radius. Right knee pain. RIGHT WRIST - 3 views COMPARISON: 02/01/2025 AP, lateral and oblique views were obtained. There is osteopenia. There is redemonstration of a volar plate and screws at the distal radius. The hardware appears intact and unchanged from the prior. The distal radius fracture is also stable. A band of sclerosis is again seen at the distal metaphysis of the ulna. A corticated bony ossicle is present adjacent to the tip of the ulnar styloid. No new fracture or dislocation is noted. Similar mild degenerative changes are seen at the wrist. There are several subcutaneous hemostasis clips along the lateral aspect of the wrist. There is atherosclerotic disease. XR/XR knee RT 4V IMPRESSION: STABLE APPEARANCE OF THE WRIST. RIGHT KNEE - 4 views COMPARISON: None AP, lateral, tunnel and patellar views were obtained. There is osteopenia. No acute fracture or dislocation is identified. No significant patellar subluxation is seen. There is no disproportionate joint space narrowing. There is slight squaring off of the articular margins. No knee effusion or soft tissue swelling is seen. IMPRESSION: OSTEOPENIA AND MINIMAL DEGENERATIVE CHANGE. RIGHT HIP WITH AP PELVIS -2 views COMPARISON: 12/22/2024 and 02/01/2025 AP view of the pelvis as well as frog-lateral view of the right hip were obtained. There is osteopenia. There is redemonstration of an intratrochanteric hip fracture with placement of a dynamic hip screw and short intramedullary melissa. There is improvement of varus positioning from the preoperative exam and no change from the more recent comparison. The tip of the dynamic hip screw is near the fovea. No new fracture or dislocation is identified. The hip joint spaces are maintained and there is some sclerosis. The SI joints are intact. There is minor degenerative change at the lower imaged lumbar spine. No soft tissue abnormalities are present. IMPRESSION: RIGHT INTERTROCHANTERIC HIP FRACTURE STATUS POST INTERNAL FIXATION, DESCRIBED. Impression dictated by: Chitra Brantley M.D. 03/15/2025 11:30 AM Dictation Location: [place] [address] Electronically authenticated by: [id number] Y Date: 03/15/2025 11:30
--- NOTE | 2025-03-15 | XR_ITS ---
The [address] [address] Patient Name: RASHARD TAN MRN: [id number] date: 1960 Sex: M Assigned Patient Location: [facility] Current Patient Location: [facility] Accession/Order Number: [id number] Exam Date: 03/15/2025 10:10 Report Date: 03/15/2025 11:30 At the request of: THOMAS SHARP DO Procedure: XR hip RT 1V w/ pelvis CLINICAL DATA: Follow-up fractures of the right proximal femur and right radius. Right knee pain. RIGHT WRIST - 3 views COMPARISON: 02/01/2025 AP, lateral and oblique views were obtained. There is osteopenia. There is redemonstration of a volar plate and screws at the distal radius. The hardware appears intact and unchanged from the prior. The distal radius fracture is also stable. A band of sclerosis is again seen at the distal metaphysis of the ulna. A corticated bony ossicle is present adjacent to the tip of the ulnar styloid. No new fracture or dislocation is noted. Similar mild degenerative changes are seen at the wrist. There are several subcutaneous hemostasis clips along the lateral aspect of the wrist. There is atherosclerotic disease. XR/XR wrist RT min 3V IMPRESSION: STABLE APPEARANCE OF THE WRIST. RIGHT KNEE - 4 views COMPARISON: None AP, lateral, tunnel and patellar views were obtained. There is osteopenia. No acute fracture or dislocation is identified. No significant patellar subluxation is seen. There is no disproportionate joint space narrowing. There is slight squaring off of the articular margins. No knee effusion or soft tissue swelling is seen. IMPRESSION: OSTEOPENIA AND MINIMAL DEGENERATIVE CHANGE. RIGHT HIP WITH AP PELVIS -2 views COMPARISON: 12/22/2024 and 02/01/2025 AP view of the pelvis as well as frog-lateral view of the right hip were obtained. There is osteopenia. There is redemonstration of an intratrochanteric hip fracture with placement of a dynamic hip screw and short intramedullary melissa. There is improvement of varus positioning from the preoperative exam and no change from the more recent comparison. The tip of the dynamic hip screw is near the fovea. No new fracture or dislocation is identified. The hip joint spaces are maintained and there is some sclerosis. The SI joints are intact. There is minor degenerative change at the lower imaged lumbar spine. No soft tissue abnormalities are present. IMPRESSION: RIGHT INTERTROCHANTERIC HIP FRACTURE STATUS POST INTERNAL FIXATION, DESCRIBED. Impression dictated by: Chitra Brantley M.D. 03/15/2025 11:30 AM Dictation Location: [place] [address] Electronically authenticated by: [id number] Y Date: 03/15/2025 11:30
--- NOTE | 2025-03-15 | XR_ITS ---
The [address] [address] Patient Name: RASHARD TAN MRN: [id number] date: 1960 Sex: M Assigned Patient Location: [facility] Current Patient Location: [facility] Accession/Order Number: [id number] Exam Date: 03/15/2025 10:10 Report Date: 03/15/2025 11:30 At the request of: THOMAS SHARP DO Procedure: XR hip RT 1V w/ pelvis CLINICAL DATA: Follow-up fractures of the right proximal femur and right radius. Right knee pain. RIGHT WRIST - 3 views COMPARISON: 02/01/2025 AP, lateral and oblique views were obtained. There is osteopenia. There is redemonstration of a volar plate and screws at the distal radius. The hardware appears intact and unchanged from the prior. The distal radius fracture is also stable. A band of sclerosis is again seen at the distal metaphysis of the ulna. A corticated bony ossicle is present adjacent to the tip of the ulnar styloid. No new fracture or dislocation is noted. Similar mild degenerative changes are seen at the wrist. There are several subcutaneous hemostasis clips along the lateral aspect of the wrist. There is atherosclerotic disease. XR/XR hip RT 1V w/ pelvis IMPRESSION: STABLE APPEARANCE OF THE WRIST. RIGHT KNEE - 4 views COMPARISON: None AP, lateral, tunnel and patellar views were obtained. There is osteopenia. No acute fracture or dislocation is identified. No significant patellar subluxation is seen. There is no disproportionate joint space narrowing. There is slight squaring off of the articular margins. No knee effusion or soft tissue swelling is seen. IMPRESSION: OSTEOPENIA AND MINIMAL DEGENERATIVE CHANGE. RIGHT HIP WITH AP PELVIS -2 views COMPARISON: 12/22/2024 and 02/01/2025 AP view of the pelvis as well as frog-lateral view of the right hip were obtained. There is osteopenia. There is redemonstration of an intratrochanteric hip fracture with placement of a dynamic hip screw and short intramedullary melissa. There is improvement of varus positioning from the preoperative exam and no change from the more recent comparison. The tip of the dynamic hip screw is near the fovea. No new fracture or dislocation is identified. The hip joint spaces are maintained and there is some sclerosis. The SI joints are intact. There is minor degenerative change at the lower imaged lumbar spine. No soft tissue abnormalities are present. IMPRESSION: RIGHT INTERTROCHANTERIC HIP FRACTURE STATUS POST INTERNAL FIXATION, DESCRIBED. Impression dictated by: Chitra Brantley M.D. 03/15/2025 11:30 AM Dictation Location: [place] [address] Electronically authenticated by: [id number] Y Date: 03/15/2025 11:30
--- OUTSIDE RECORDS SUMMARY | 2025-03-15 09:44 | XMS_ITS | CCD ---
Author Organization [facility] Care Team Providers Care Winch Operator Name Role Phone Jose Juarez Primary Care Provider Eugene Morel Admit Provider [phone] Eugene Morel Attending Provider Gordon Ewing Attending Provider [phone] Patria Cheung Attending Provider SAVANNAH REYNOLDS Admitting Unavailable SAVANNAH REYNOLDS Attending Unavailable JOSE JUAREZ Primary Care Unavailable JOSE JUAREZ Referring Unavailable SD Procedure Practitioner Unavailab TRISHA Ozuna Surgeon Unavailable NIMA YWNNE Surgeon Unavailable SD Procedure Practitioner Unavailab Jose Andres Primary Care Provider [phone] Eugene Morel Admit Provider [phone] Gordon Ewing Attending Provider Patria Cheung Attending [...] Primary Care Unavailable TRACY COE Attending Unavailable CAROLINTRAYC LIRA Admitting Unavailable VALONE, DR RIOS Primary [...] Unavailable MARY .MARGIE Consulting Unavailable HIGHLANDER, CHINO Hospon Consulting Unavailable HIGHLANDER, CHINO D Attending Unavailable [...] Valone Jr., Jose MAE Primary Care Provider [facility] DPM, Chino Hopson Attending Provider Kenya DPM, Chino Hopson Attending Provider [phone] [facility] DPM, Chino Hopson Attending Provider Jose Juarez JR Primary Care Provider [phone] Celia SIGALA, Enrique Admit Provider Lanie SIGALA, Leno Jennings Other Provider Leigh SIGALA, Carie Other Provider Fransisco AGUSTIN, Love Other Provider Unavailable Lester SIGALA, Ari Attending Provider Ari Batista MD Other Provider [phone] Lester NIETO-C, Alyssia Tilley Other Provider Jesus SIGALA, Nima Gan Other Provider Leonardo SIGALA, Benjamin Richter Other Provider Maite SIGALA, Luis Enrique Hopson Other Provider Pablo SIGALA, Nir Dennison Other Provider Roger MAE, Yasonia Other Provider London SIGALA, Mya Other Provider Ronald SIGALA, Clayton Other Provider Camila GOOD, Aleta Other Provider [phone] Raad SIGALA, Doc Hopson Other Provider [phone] Kami SIGALA, Raimundo Attending Provider Ronald SIGALA, Clayton Admit Provider Clayton Cardenas MD Attending Provider [phone] Ingrid RUBIO, Marlena Other Provider Unavailable Neelam RUBIO, Yudy Other Provider Unavailable Asif RN, Denise Other Provider Unavailable Rafat RN, Diana Other Provider Unavailable Dimas RNMeme Other Provider Unavailable Ronald RUBIO, Brigitte Other Provider Unavailable Sukumar Patricio MD Other Provider Doug Joseph DO Other Provider Billy SIGALA, Dinesh Other Provider [phone] Eugene Morel DO Other Provider [phone] Celia SIGALA, Enrique Other Provider Liza Rod MD Other Provider Bryan Cordova DO Other Provider Dewayne Godwin MD Other Provider Unavailable Ita Orellana APRN Other Provider Vishal Aguirre MD Other Provider Krystal Rodriguze MD Other Provider Unavailable Henrry Manning MD [...] Provider Cici Reilly MD Other Provider [phone] Ericka Otto APRN Other Provider Unavailable Talia Pinedo MD Other Provider Clayton Ramsey MD Other Provider Dewayne Akbar MD Other Provider Josemanuel Talavera MD Other Provider Mary Pichardo APRN Other Provider Bolzan-Basilia FLORENTINO, Nicoletto Other Provider [phone] Alanis RUBIO, Fanta Other Provider Unavailable Kike Pollack MD Other Provider Mabel OSTRICH FARMER-C, Elizabeth Other Provider Unavailable Raimundo Mcclure MD Other Provider Aleta Jensen APRN Attending Provider Larry Charles DO, Charles L Primary Care Provider Donnell OSTRICH FARMER-C, Alyssia Tilley Other Provider Bryan Cordova DO Other Provider Unavailab Wilfrido Kirk DO Attending Provider Chino Elliott Admitting Unavailable Chino Elliott Attending Unavailable Chino Elliott Attending Unavailable Chino Elliott Admitting Unavailable Enrique Yang Admitting Unavailable Jose Juarez Primary Care Unavailable Leigh Carie Consulting Unavailable Phillip Duran Attending Unavailable Love Moody Consulting Unavailable Ari Batista Consulting Unavailable Alyssia Jacobo Consulting Unavailable Nima Lee Consulting Unavailable Benjamin Patterson Consulting UnavailLuis Enrique Garg Consulting Unavailable Nir Shah II Consulting Unavailrodrigue Callahan, Mya Consulting Unavailable Clayton Cardenas Consulting Unavailable Aleta Jensen Consulting Unavailable Doc Shankar Consulting UnavailJose Yung Primary Care Unavailable Clayton Cardenas Attending Unavailable Clayton Cardenas Admitting Unavailable Marlena Quintero Consulting Unavailable Yudy Richter Consulting Unavailable Denise Gold Consulting Unavailable Diana Douglass Consulting Unavailable Meme Cochran Consulting Unavailable Brigitte Cardenas Consulting Unavailable Sukumar Patricio Consulting Unavailable Doug Joseph Consulting Unavailable Dinesh Cervantes Consulting Unavailable Eugene Morel Consulting UnavailEnrique Salazar Consulting Unavailable Liza Rod Consulting Unavailable Bryan Cordova Consulting Unavailable Dewayne Godwin Consulting Unavailable Ita Orellana Consulting UnavailVishal Pulido Consulting Unavailable Krystal Rodriguez Consulting Unavailable Henrry Manning Consulting Unavailable Frings, Bryan Consulting Unavailable Idalia Bryan Consulting Unavailable Nazario [...] Unavailable Phillip Duran Consulting Unavailable Leno Dela rCuz Consulting Unavailable Cici Reilly Consulting UnaEricka Melchor Consulting Unavailable Talia Pinedo Consulting Unavailable Clayton Ramsey Consulting Unavailable Dewayne Akbar Consulting Unavailable Josemanuel Talavera Consulting Unavailable Mary Pichardo Consulting Unavailable Bolflo-Basilia Nicolettemanuel Consulting Unavaila Fanta Benites Consulting Unavailable Kike Pollack Consulting Unavailable Elizabeth Monroe Consulting Unavailable Carie Abraham Consulting Unavailable Raimundo Mcclure Consulting Unavailable Larry Charles DO, Charles L Primary Care Provider Jose Juarez MD Primary Care Provider [phone] Unavailable Unavailable Unavailable Allergies Allergy ClassificationReported Allergen(s)Allergy TypeDate of OnsetReaction(s) Facilityexenatide (1 source)exenatideDrug Okiymyi67-12-6375Idy [facility] RepositoryNSAIDs (5 sources)celecoxib; Translations: [Celebrex]Drug Wbcbpog06-56-7891Ljuvlnqcmb BreathingThe [facility] RepositoryPhenolphthalein (1 source)PhenolphthaleinDrug Qdynufs79-49-1292Uhx [facility] Repository (16 sources)celecoxib; Translations: [celecoxib]Drug Uzziogq89-54-0720Ejogysaait Breathing, bad for kidney, Difficulty Breathing[facility]Pro[facility] Repository (14 sources)Aspirin; Translations: [ASPIRIN]Drug Dbnblaz79-99-5958dfx for kidney [facility] Repository (3 sources)AmoxicillinDrug Jhcphtm72-24-3949Mkw [facility] Repository (1 source)celecoxibDrug Oqjgzjp21-40-2672ObwMag[facility] Rep[facility] (1 source)exenatideDrug Lbaylec36-88-7354YavMagruder Hospital Repository (1 source)PhenolphthaleinDrug Ffmyajk20-10-9779Zvi [facility] Repository (8 sources)exenatide; Translations: [EXENATIDE]Drug Pwarqyz47-58-0773LdcHhlxnk Repository (8 sources)HYLAN G-F 20; Translations: [HYLAN G-F 20]Propensity to adverse reactions to drug (disorder)15-62-5289RqmZdlexv Repository (2 sources)exenatideDrug Zaryuaq56-59-3209AorqubnvpPaulding County Hospital (2 sources)OXcarbazepineDrug Epjgboc52-08-1433RxwsxrennPaulding County Hospital (1 source)AspirinDrug Umolwxo11-23-2261EampzirerPaulding County Hospital Repository Medications Current Medications MedicationDrug Class(es)DatesSig (Normalized)Sig (Original)acetaminophen 500 mg oral tablet (2 sources)Start: 13-13-2217mpar 2 tablets by mouth three times dailyAlbuterol Sulfate (16 sources)beta2-Adrenergic AgonistStart: 53-01-7858gxgx 1 puff(s) by inhalation every six hoursAlbuterol Sulfate Active 2 PUFF Inhalation Q6H December 31, 2018 3:14pmStart: 09-30-2017 End: 52-32-9121anwt 1 puff(s) by inhalation every six hoursAlbuterol Sulfate Discontinued 2 PUFF INHALATION Q6H September 30, 2017 6:15pm November 08, 2017 1:23pm Start: 09-30-2017 End: 92-82-0817rlkm 1 puff(s) by inhalation every six hours as neededAlbuterol Sulfate 90 mcg/actuation Hfa Aerosol Inhaler Discontinued 2 PUFF INHALATION Q6H as neededfor Shortness Of Breath September 30, 2017 12:00am November 08, 2017 1:23pm take 2 puff(s) by inhalation every six hours as needed for wheezingalbuterol (PROVENTIL HFA) 90 mcg/actuation inhaler Inhale 2 puffs every 6 (six) hours as needed forwheezing. ActiveamLODIPine 5 mg oral tablet (1 source)Dihydropyridine Calcium Channel BlockerStart: 01-84-9083suta 10 mg by mouth once dailyAmlodipine Active 10 MG Oral Daily January 05, 2019 2:10pm B Complex And C 20-Folic Acid (Renal Caps) 1 mg Capsule (4 sources)Start: 33-17-3662uwqf 1 capsule by mouth once dailyB Complex With C 20-Folic Acid (Renal Caps) 1 mg Capsule (5 sources)Start: 21-04-2928cris 1 capsule by mouth once dailyB Complex With C 20-Folic Acid (Renal Caps) 1 mg Capsule Active 1 CAP PO Daily August 18, 2020 9:20pmStart: 40-32-7479fxhc 1 capsule by mouth once dailyB Complex With C 20- Folic Acid (Renal Caps) 1 mg Capsule Active 1 CAP PO Daily August 18, 2020 12:0 0ambiotin 5 mg disintegrating oral tablet (7 sources)Start: 34-76-6409aksx 5000 ug by mouth twice dailyBiotin Active 5000 MCG Oral Twice daily September 30, 2017 6:18pmbiotin 5,000 mcg tablet,disintegrating Dissolve 10,000 mcg on tongue 2 (two) times a day. Voicwo52 hr buPROPion hydrochloride 300 mg extended release oral tablet (16 sources)AminoketoneStart: 47-89-0555nwui 1 tablet by mouth once dailyStart: 11-29-4561dzsw 150 mg by mouth once dailyBupropion Hcl Active 150 MG Oral Daily September 30, 2017 6:19pmStart: 76-79-7573djbg 1 tablet by mouth every twelve hours in the morningbuPROPion SR (WELLBUTRIN SR) 150 mg 12 hr tablet Take 1 tablet (150 mg total) by mouth in the morning. Activecolesevelam hydrochloride 625 mg oral tablet (16 sources)Bile Acid SequestrantStart: 28-61-7263eqgn 3 tablets by mouth three times daily at mealtimeColesevelam (Welchol) 625 mg Tablet Active 1875 MG PO THREE TIMES DAILY WITH MEALS September 30, 2017 6:42pmStart: 03-57-5389gooa 1250 mg by mouth three times daily at mealtimeColesevelam Active 1250 MG Oral THREE TIMES DAILY WITH MEALS September 30, 2017 6:42pmStart: 09-30-2017 End: 78-61-1778xhlw 3 tablets by mouth twice daily at mealtimeColesevelam (Welchol) 625 mg Tablet Discontinued 1875 MG PO TWICE DAILY WITH MEALS September 30, 2017 12:00am December 29, 2024 12:20pmcolesevelam (WELCHOL) 625 mg tablet Take 650 mg by mouth Medrol Dose Pack scheduling ONLY. Active1 ml darbepoetin ml 0.06 mg/ml injection (2 sources)Erythropoiesis-stimulating AgentStart: 46-00-4377axwo 60 ug intravenously every weekdocusate sodium 100 mg oral capsule (18 sources)Start: 27-04-7940zdgs 1 capsule by mouth twice dailyStart: 09-79-5752jchw 100 mg by mouth twice dailyDocusate Sodium Active 100 MG Oral Twice daily December 31, 2018 3:14pmStart: 09-30-2017 End: 07-27-9986hxfi 1 capsule by mouth twice dailyDocusate Sodium (Colace) 100 mg Capsule Discontinued 100 MG PO Twice daily September 30, 2017 12:00am November 08, 2017 1:27pmDULoxetine 60 mg delayed release oral capsule (19 sources)Serotonin and Norepinephrine Reuptake InhibitorStart: 54-32-9506xdzf 1 capsule by mouth once dailyStart: 09-30-2017 End: 08-86-4102pehw 1 capsule by mouth at bedtimeDuloxetine 30 mg capsule,delayed release(DR/EC) Discontinued 30 MG PO Bedtime September 30, 2017 12:00am December 31, 2018 3:08pmfamotidine 40 mg oral tablet (17 sources)Histamine-2 Receptor AntagonistStart: 34-08-0571Flxao: 08-18-2020 take 1 tablet by mouth twice dailyStart: 37-36-4434hdel 20 mg by mouth twice dailyFamotidine Active 20 MG Oral Twice daily September 30, 2017 6:23pmFinerenone (3 sources)Start: 00-98-0129msmx 1 tablet by mouth once dailyfolic acid 1 mg oral tablet (7 sources)Start: 26-05-5122jkad 1 mg by mouth once dailyFolic Acid Active 1 MG Oral Daily December 31, 2018 3:14pm ALL DAYS EXCEPT SATURDAYheparin sodium, porcine 5000 unt/ml injectable solution (2 sources)Unfractionated Heparin, Anti-coagulantStart: 77-43-4869cqbumz 5000 [IU] by subcutaneous injection every twelve hours3 ml insulin aspart, human 100 unt/ml pen injector (8 sources)Insulin AnalogStart: 12-29-2024 End: 21-46-7815Vozob: 12-23-2024 End: 57-33-5560Vkuojrb Aspart U-100 (Novolog U-100 Insulin Aspart) 100 unit/mL solution Discontinued 1 sliding scale dose SUBCUT As Directed December 23, 2024 12:00am January 15, 2025 12:24pm3 ml insulin glargine 100 unt/ml pen injector (5 sources)Insulin AnalogStart: 41-96-6436Liplq: 12-29-2024 End: 42-43-9201Hrgeqjd Glargine (Lantus Solostar U-100 Insulin) 100 unit/mL (3 mL) Insulin Pen Discontinued 40 UNIT SUBCUT Daily 04 27December 29, 2024 12:00am January 15, 2025 12:23pmlidocaine 0.04 mg/mg medicated patch (2 sources)Antiarrhythmic, Amide Local AnestheticStart: 61-01-0294lpigp 1 dose topically once dailylinezolid 600 mg oral tablet (1 source)Oxazolidinone AntibacterialStart: 81-89-7131ivla 600 mg by mouth twice dailyLinezolid Active 600 MG Oral Twice daily 28 14 January 05, 2019 2:10pm Magnesium (1 source)Magnesium 400 MG as directed Orally Activemeclizine hydrochloride 25 mg chewable tablet (17 sources)AntiemeticStart: 23-17-6663kohn 25 mg by mouth once dailyMeclizine Active 25 MG Oral Daily September 30, 2017 6:30pmStart: 09-30-2017 End: 99-54-7114wyvb 1 tablet by mouth every eight hours as needed for dizziness Meclizine 25 mg Tablet,Chewable Discontinued 25 MG PO Every 8 hours as needed for Dizziness September 30, 2017 12:00am December 29, 2024 12:20pmtake 1 tablet by mouth every eight hoursMeclizine HCl 25 MG 1 tablet as needed Orally three times a day Activemetoprolol tartrate 25 mg oral tablet (1 source)beta-Adrenergic BlockerStart: 94-24-5710tifg 25 mg by mouth twice dailyMetoprolol Tartrate Active 25 MG Oral Twice daily 120 60 January 05, 2019 2:10pmmidodrine hydrochloride 5 mg oral tablet (3 sources)alpha-Adrenergic AgonistStart: 63-90-5943lreg 2 tablets by mouth before breakfasttake 1 tablet by mouth twice daily in the morningMidodrine HCl 5 MG TAKE 1 TABLET BY MOUTH TWICE DAILY IN THE MORNING AND SUPPER IF BLOOD PRESSURE IS LESS THAN 90 STANDING Oral Activemontelukast 10 mg oral tablet (17 sources)Leukotriene Receptor AntagonistStart: 67-94-9513jlga 1 tablet by mouth at bedtimeMultivit With Yls-Xz-Ctgkcqwy (One-A-Day Men's 50 Plus) 400-370 mcg tablet (3 sources)Start: 73-93-0110tdsm 50-400 tablets by mouth once dailynystatin 100 unt/mg topical powder (2 sources)Polyene AntifungalStart: 64-32-4586wcroczxmvmt 4 mg oral tablet (1 source)Serotonin-3 Receptor Antagonisttake 1 tablet by mouth every eight hours as neededOndansetron HCl 4 MG TAKE 1 TABLET BY MOUTH EVERY 8 HOURS NEEDED Oral for 3 ActiveoxyCODONE hydrochloride 5 mg oral tablet (2 sources)Opioid AgonistStart: 28-19-2693ebmx 2 tablets by mouth every six hours as needed for painpolyethylene glycol 3350 61608 mg powder for oral solution (3 sources)Osmotic LaxativeStart: 09-92-0401Hwbumwq 17 grams orally at hour of sleep Activepregabalin 75 mg oral capsule (6 sources)Start: 73-38-3974ezmh 1 capsule by mouth three times dailypregabalin (LYRICA) 75 mg capsule Indications: Diabetic peripheral neuropathy (CMS-HCC) Take 1 capsule (75 mg total) by mouth 3 (three) times a day. 90 capsule 1 04/16/2019 ActiveRenal Softgels (1 source)Renal Softgels Activerosuvastatin calcium 20 mg oral tablet (20 sources)HMG-CoA Reductase InhibitorStart: 85-53-7022uvbb 1 tablet by mouth at bedtimeStart: 00-43-4017mebd 10 mg by mouth once dailyRosuvastatin (Crestor) 40 mg Tablet Active 10 MG PO Daily August 18, 2020 9:12pmStart: 08-18-2020 End: 55-62-9927Mkuqkfnfdfak (Crestor) 40 mg Tablet Discontinued 20 MG PO Daily August 18, 2020 12:00am August 25, 2020 12:34pmStart: 64-58-6409yagh 10 mg by mouth once dailyRosuvastatin Active 10 MG Oral Daily September 30, 2017 6:35pm sevelamer carbonate 800 mg oral tablet (20 sources)Phosphate BinderStart: 87-37-1672tapv 1 tablet by mouth once at mealtimeStart: 79-96-6728cgrl 400 mg by mouth once dailySevelamer Hcl Active 400 MG Oral Daily September 30, 2017 6:35pmStart: 09-30-2017 End: 36-46-0205Wtlhykiuc Hcl (Renagel) 800 mg Tablet Discontinued 400 MG PO Daily September 30, 2017 12:00am August 19, 2020 11:03amtake 1 tablet by mouth in the morningsevelamer (RENAGEL) 400 mg tablet Take 1 tablet (400 mg total) by mouth in the morning. Active5 ml sodium ferric gluconate complex 12.5 mg/ml injection (2 sources)Start: 08-31-5231rudaudighcpcl acetonide 1 mg/ml topical cream (16 sources)CorticosteroidStart: 42-97-6918Mitvfrkehfmld Acetonide Active 1 APPLIC TOPICAL Twice daily December 31, 2018 3:14pmStart: 12-31-2018 End: 00-94-9841Rvxxctgmvvcuy Acetonide 0.1 % Cream Discontinued 1 APPLIC TOPICAL Twice daily December 31, 2018 12:00am December 29, 2024 12:20pm Completed/Discontinued Medications MedicationDrug Class(es)DatesSig (Normalized)Sig (Original)acetaminophen 325 mg / HYDROcodone bitartrate 5 mg oral tablet (20 sources)Opioid AgonistStart: 12-31-2018 End: 71-46-6746bzpv 1 tablet by mouth every six hours as needed for pain Hydrocodone-Acetaminophen 5-325 mg tablet Discontinued 1 TAB PO Q6H as needed for Pain December 31, 2018 12:00am January 05, 2019 2:16pmStart: 09-30-2017 End: 22-17-5350kmgs 1 tablet by mouth every four hours as needed for pain Hydrocodone-Acetaminophen 5-325 mg tablet Discontinued 5 MG PO Q4H as needed for Pain September 30, 2017 12:00am November 12, 2017 11:43amacetaminophen 325 mg / oxyCODONE hydrochloride 5 mg oral tablet (10 sources)Opioid AgonistStart: 11-12-2017 End: 45-21-3582cyhm 1 tablet by mouth every six hours as needed for pain Oxycodone-Acetaminophen (Percocet) 5-325 mg tablet Discontinued 1 TAB PO Q6H as needed for pain (scale score 7-10) 24 6 November 12, 2017 December 31, 2018 3:12pmtake 1 tablet by mouth every eight hours as neededPercocet 5-325 MG 1 tablet as needed Orally EVERY 8 HRS NEEDED Activeamoxicillin 500 mg / clavulanate 125 mg oral tablet (18 sources)Penicillin-class AntibacterialStart: 11-12-2017 End: 37-04-1109jmpk 1 tablet by mouth every eight hoursAmoxicillin-Pot Clavulanate (Augmentin) 500-125 mg tablet Discontinued 1 TAB PO Q8H 42 November 12, 2017 12:00am November 25, 2017 12:00am November 26, 2017 12:01amStart: 10-04-2017 End: 10-82-8464tocw 1 tablet by mouth twice dailyAmoxicillin-Pot Clavulanate (Augmentin) 500-125 mg tablet Discontinued 1 TAB PO Twice daily 2017 12:00am November 08, 2017 1:24pmapremilast 30 mg oral tablet (9 sources)Start: 08-19-2020 End: 08-96-5865tydr 1 tablet by mouth once dailyApremilast (Otezla) 30 mg Tablet Discontinued 30 MG PO Daily August 19, 2020 12:00am December 29, 2024 12:20pmatorvastatin 40 mg oral tablet (8 sources)HMG-CoA Reductase InhibitorStart: 08-23-2020 End: 08-63-5689vdxg 1 tablet by mouth once daily in the eveningAtorvastatin 40 mg Tablet Discontinued 40 MG PO Every evening August 23, 2020 12:00am January 15, 2025 12:23pmB Complex And C 20-Folic Acid 1 mg capsule (4 sources)Start: 09-30-2017 End: 83-73-9060wpgx 1 capsule by mouth once dailyB Complex And C 20-Folic Acid 1 mg capsule Discontinued 1 CAP PO Daily September 30, 2017 12:00am November 08, 2017 1:25pmB Complex With C 20-Folic Acid (4 sources)Start: 09-30-2017 End: 93-84-1565ykth 1 capsule by mouth once dailyB Complex With C 20-Folic Acid Discontinued 1 CAP PO Daily September 30, 2017 6:45pm November 08, 2017 1:25pmB Complex With C 20-Folic Acid 1 mg capsule (1 source)Start: 09-30-2017 End: 97-72-6885hbxg 1 capsule by mouth once dailyB Complex With C 20-Folic Acid 1 mg capsule Discontinued 1 CAP PO Daily September 30, 2017 12:00am 2017 1:25pmbumetanide 2 mg oral tablet (9 sources)Loop DiureticStart: 09-30-2017 End: 46-61-5473ohii 1 tablet by mouth once dailyBumetanide 2 mg Tablet Discontinued 2 MG PO Daily September 30, 2017 12:00am December 31, 2018 3:05pm calcium acetate 667 mg oral capsule (16 sources)Start: 09-30-2017 End: 51-43-9815otjl 1 capsule by mouth three times daily at mealtimeCalcium Acetate(Phosphat Bind) 667 mg Capsule Discontinued 667 MG PO THREE TIMES DAILY WITH MEALS September 30, 2017 12:00am August 25, 2020 12:34pmcholecalciferol 0.125 mg oral tablet (9 sources)Vitamin DStart: 08-18-2020 End: 23-88-5451kebq 1 tablet by mouth once dailyCholecalciferol (Vitamin D3) (Vitamin D3) 125 mcg (5,000 unit) Tablet Discontinued 125 MCG PO DailyAugust 18, 2020 12:00am August 25, 2020 12:34pmdoxycycline hyclate 100 mg oral capsule (9 sources)Tetracycline-class DrugStart: 11-12-2017 End: 96-05-3641dzzm 1 capsule by mouth twice dailyDoxycycline Hyclate 100 mg capsule Discontinued 100 MG PO Twice daily November 12, 2017 12:00amAugu2017 12:00am December 03, 2017 12:01amempagliflozin 25 mg oral tablet (3 sources)Sodium-Glucose Cotransporter 2 InhibitorStart: 12-23-2024 End: 98-39-7779zrdf 1 tablet by mouth once dailyEmpagliflozin (Jardiance) 25 mg tablet Discontinued 25 MG PO Daily December 23, 2024 12:00am January 15, 2025 12:23pm On Hold: Plan to hold permanently given HD status per nephrology esomeprazole 40 mg delayed release oral capsule (9 sources)Proton Pump InhibitorStart: 08-18-2020 End: 69-96-3041azob 1 capsule by mouth once dailyEsomeprazole Magnesium 40 mg capsule,delayed release(DR/EC) Discontinued 40 MG PO Daily July 12:00am December 29, 2024 12:20pmferrous sulfate 325 mg oral tablet (8 sources)Start: 08-25-2020 End: 47-20-3050Sxbfxxt Sulfate 325 mg (65 mg iron) tablet Discontinued 325 MG PO Every 48 hours August 25, 2020 12:00am December 29, 2024 12:20pm furosemide 40 mg oral tablet (10 sources)Loop DiureticStart: 08-25-2020 End: 09-76-2109ccue 1 tablet by mouth twice dailyFurosemide 40 mg Tablet Discontinued 40 MG PO BID@0800,1600 60 August 25, 2020 12:00am December 29, 2024 12:20pmStart: 58-66-4189livo 40 mg by mouth once dailyFurosemide Active 40 MG Oral Daily January 05, 2019 2:10pmgabapentin 800 mg oral tablet (18 sources)Anti-epileptic AgentStart: 08-18-2020 End: 46-03-2544work 1 tablet by mouth twice dailyGabapentin 800 mg tablet Discontinued 800 MG PO Twice daily August 18, 2020 12:00am August 25, 2020 12:34pmStart: 09-30-2017 End: 87-49-7164geod 1 tablet by mouth twice dailyGabapentin 600 mg tablet Discontinued 600 MG PO Twice daily September 30, 2017 12:00am December 31, 2018 3:10pmhydrALAZINE hydrochloride 25 mg oral tablet (12 sources)Arteriolar VasodilatorStart: 12-29-2024 End: 21-56-3386hdbt 1 tablet by mouth three times dailyHydralazine 25 mg Tablet Discontinued 25 MG PO Three times daily 90 December 29, 2024 12:00am S bibitemaddie 2024 12:23pmStart: 08-18-2020 End: 17-93-2975suwp 1 tablet by mouth three times dailyHydralazine 100 mg tablet Discontinued 100 MG PO Three times daily August 18, 2020 12:00am December 29, 2024 12:20pm3 ml insulin degludec 100 unt/ml pen injector (20 sources)Insulin AnalogStart: 11-08-2017 End: 88-04-1126Ucbdxrx Degludec (Tresiba Flextouch U-100) 100 unit/mL (3 mL) insulin pen Discontinued 200 UNIT SUBCUT Daily November 08, 2017 1:37pm December 29, 2024 12:20pmStart: 67-90-1136xheiul 100 [IU] by subcutaneous injection once dailyInsulin Degludec Active 100 UNIT Subcutaneous Daily November 08, 2017 1:37pm Start: 10-04-2017 End: 22-73-0222Spabydl Degludec (Tresiba Flextouch U-100 Insulin) 100 unit/mL (3 mL) insulin pen Discontinued 70 UNIT SUBCUT Daily 3 October 04, 2017 12:00am November 08, 2017 1:37pmStart: 09-30-2017 End: 66-28-2171liylrl 200 [IU] by subcutaneous injection once dailyInsulin Degludec (Tresiba Flextouch U-200) 200 unit/mL (3 mL) insulin pen Discontinued 200 UNIT SUBCUT Daily September 30, 2017 12:00am October 04, 2017 12:34pminsulin degludec (TRESIBA FLEXTOUCH U-200) 200 unit/mL (3 mL) insulin pen Inject 100 Units under the skin in the morning. Active3 ml insulin detemir 100 unt/ml pen injector (3 sources)Insulin AnalogStart: 12-23-2024 End: 81-32-6467wcbles 30 [IU] by subcutaneous injection at bedtimeInsulin Detemir U-100 100 unit/mL (3 mL) insulin pen Discontinued 30 UNIT SUBCUT Bedtime December 23, 2024 12:00am December 29, 2024 12:20pm3 ml insulin glargine 100 unt/ml / lixisenatide 0.033 mg/ml pen injector (20 sources)Insulin AnalogStart: 12-31-2018 End: 38-54-6201Tmfsswf Glargine-Lixisenatide (Soliqua 100/33) 100 unit-33 mcg/mL Insulin Pen Discontinued 60 UNITSSUBCUT Daily December 31, 2018 12:00am December 29, 2024 12:20pmStart: 09-30-2017 End: 99-49-0042Wlhmfpq Glargine-Lixisenatide (Soliqua 100/33) 100 unit-33 mcg/mL Insulin Pen Discontinued 70 UNIT SUBCUT Daily September 30, 2017 12:00am October 04, 2017 1:07pminject 60 [IU] by subcutaneous injection twice dailySoliqua 100/33 60 Units Subcutaneous TWICE A DAY Active3 ml insulin lispro 100 unt/ml pen injector (20 sources)Insulin AnalogStart: 11-08-2017 End: 40-51-1004Mjrxxke Lispro (Humalog Kwikpen Insulin) 100 unit/mL insulin pen Discontinued 50 UNIT SUBCUT THREE TIMES DAILY WITH MEALS November 08, 2017 1:37pm December 31, 2018 3:11pmStart: 10-04-2017 End: 21-52-7549Qdrznvw Lispro (Humalog Kwikpen Insulin) 100 unit/mL Insulin Pen Discontinued 40 UNIT SUBCUT THREE TIMES DAILY WITH MEALS 3 October 04, 2017 1:10pm November 08, 2017 1:37pmStart: 09-30-2017 End: 89-75-5463Cjpfbbh Lispro (Humalog Kwikpen Insulin) 100 unit/mL Insulin Pen Discontinued 50 UNIT SUBCUT THREE TIMES DAILY WITH MEALS September 30, 2017 12:00am October 04, 2017 1:11pmHumaLOG KwikPen 200 UNIT/ML as directed Subcutaneous SLIDING SCALE Activelinaclotide 0.145 mg oral capsule (9 sources)Guanylate Cyclase-C AgonistStart: 09-30-2017 End: 28-71-6230xuoi 1 capsule by mouth once dailyLinaclotide 145 mcg capsule Discontinued 145 MCG PO Daily September 30, 2017 12:00am November 08, 2017 1:31pm losartan potassium 100 mg oral tablet (15 sources)Angiotensin 2 Receptor BlockerStart: 12-31-2018 End: 58-10-3172sfbt 1 tablet by mouth once dailyLosartan 100 mg Tablet Discontinued 100 MG PO Daily December 31, 2018 12:00am January 05, 2019 2:16pmtake 2 tablets by mouth in the morninglosartan (COZAAR) 50 mg tablet Take 2 tablets (100 mg total) by mouth in the morning. Activemagnesium oxide 400 mg oral tablet (9 sources)Start: 08-18-2020 End: 75-12-1145eoes 1 tablet by mouth once dailyMagnesium Oxide 400 mg magnesium Tablet Discontinued 400 MG PO Daily August 18, 2020 12:00am December 29, 2024 12:20pmmethotrexate 2.5 mg oral tablet (16 sources)Folate Analog Metabolic InhibitorStart: 12-31-2018 End: 61-63-3630ktav 10 mg by mouth every weekMethotrexate Sodium Discontinued 10 MG PO every week December 31, 2018 3:14pm August 19, 2020 11:01am Saturday Start: 12-31-2018 End: 13-06-2934yykv 4 tablets by mouth every weekMethotrexate Sodium 2.5 mg Tablet Discontinued 10 MG PO every week December 31, 2018 12:00am August 19, 2020 11:01am Saturdaytake 1 tablet by mouth every weekmethotrexate 2.5 mg chemo tablet Take 1 tablet by mouth once a week ActivemethylPREDNISolone 4 mg oral tablet (8 sources)CorticosteroidStart: 08-23-2020 End: 28-99-8312ptvr 1 tablet by mouth onceMethylprednisolone (Medrol (Sukh)) 4 mg tablets,dose pack Discontinued 0 PO .COMPLEX August 23, 2020 12:00am December 29, 2024 12:20pm orally per package directionsmetOLazone 10 mg oral tablet (9 sources)Thiazide-like DiureticStart: 09-30-2017 End: 17-26-9601ttrs 1 tablet by mouth twice dailyMetolazone 10 mg tablet Discontinued 10 MG PO Twice daily September 30, 2017 12:00am December 31, 2018 3:12pmOXcarbazepine 300 mg oral tablet (17 sources)Anti-epileptic AgentStart: 09-30-2017 End: 98-16-1856iexl 1 tablet by mouth at bedtimeOxcarbazepine 300 mg tablet Discontinued 300 MG PO Bedtime September 30, 2017 12:00am December 29, 2024 12:20pmpotassium chloride 10 meq extended release oral tablet (17 sources)Start: 08-25-2020 End: 46-01-3536Twlxoaosa Chloride (Klor-Con 10) 10 mEq Tablet Extended Release Discontinued 10 MEQ PO Daily August 25, 2020 12:00am December 29, 2024 12:20pmStart: 09-30-2017 End: 02-41-7877Fffrrurvp Chloride 20 mEq Tablet Extended Release Discontinued 20 MEQ PO As Directed September 30, 201712:00am December 31, 2018 3:13pmsodium bicarbonate 325 mg oral tablet (19 sources)Start: 12-23-2024 End: 02-28-8743uovo 1 tablet by mouth three times dailySodium Bicarbonate 325 mg tablet Discontinued 325 MG PO Three times daily December 23, 2024 12:00am January 15, 2025 12:24pmStart: 39-68-3485doit 325 mg by mouth once daily Sodium Bicarbonate Active 325 MG Oral Daily November 08, 2017 1:34pmStart: 11-08-2017 End: 56-61-3648kctn 1 tablet by mouth twice dailySodium Bicarbonate 325 mg Tablet Discontinued 325 MG PO Twice daily November 08, 2017 12:00am August 25, 2020 12:34pmsulfamethoxazole 800 mg / trimethoprim 160 mg oral tablet (20 sources)Dihydrofolate Reductase Inhibitor Antibacterial, Sulfonamide AntimicrobialStart: 12-31-2018 End: 47-48-9537qzzj 1 tablet by mouth twice dailySulfamethoxazole-Trimethoprim (Bactrim Ds) 800-160 mg Tablet Discontinued 1 TAB PO Twice daily December 31, 2018 12:00am January 05, 2019 2:16pmStart: 09-30-2017 End: 79-13-1478qvxx 1 tablet by mouth twice dailySulfamethoxazole-Trimethoprim 800-160 mg tablet Discontinued 1 TAB PO Twice daily September 30, 2017 12:00am October 04, 2017 12:33pmtamsulosin hydrochloride 0.4 mg oral capsule (20 sources)alpha-Adrenergic BlockerStart: 12-31-2018 End: 96-74-2448zwbz 1 capsule by mouth once dailyTamsulosin (Flomax) 0.4 mg Capsule Discontinued 0.4 MG PO Daily December 31, 2018 12:00am December 29, 2024 12:20pmStart: 09-30-2017 End: 77-02-5439uurf 1 capsule by mouth once dailyTamsulosin (Flomax) 0.4 mg Capsule,Extended Release 24hr Discontinued 0.4 MG PO Daily September 30, 2017 12:00am November 08, 2017 1:33pmtraZODone hydrochloride 50 mg oral tablet (17 sources)Serotonin Reuptake InhibitorStart: 09-30-2017 End: 21-87-7459jyge 1 tablet by mouth at bedtimeTrazodone 50 mg tablet Discontinued 50 MG PO Bedtime September 30, 2017 12:00am December 29, 2024 12:20pm varenicline 1 mg oral tablet (15 sources)Partial Cholinergic Nicotinic AgonistStart: 09-30-2017 End: 32-91-0809qmcc 1 tablet by mouth once dailyVarenicline Tartrate 1 mg tablet Discontinued 1 MG PO Daily September 30, 2017 12:00am January 05, 2019 2:16pm vorapaxar 2.08 mg oral tablet (9 sources)Protease-activated Receptor-1 AntagonistStart: 09-30-2017 End: 06-81-1845zsyg 1 tablet by mouth once dailyVorapaxar 2.08 mg Tablet Discontinued 2.08 MG PO Daily September 30, 2017 12:00am November 08, 2017 1:36pm Problems Active Problems Problem ClassificationProblemDateDocumented DateEpisodic/ChronicAcute and unspecified renal failure (13 sources)Acute kidney failure, unspecified; Translations: [Acute kidney failure, unspecified]Onset: 08-62-3215PbpzkcyxHneepmjfg infection; unspecified site (20 sources)Methicillin resistant Staphylococcus aureus infection; Translations: [Streptococcus agalactiae infection]38-83-0385WbqomnynVtlavlb kidney disease (20 sources)Chronic kidney disease stage 4; Translations: [Chronic kidney disease, stage 4 (severe)]Onset: 03-21-2021 Resolved: 24-96-3439IbieiseCdeatkg kidney disease (2 sources)Chronic kidney disease; Translations: [Chronic kidney disease, stage 3 unspecified]Onset: 19-03-5855Iupzpfs obstructive pulmonary disease and bronchiectasis (20 sources)Chronic obstructive lung disease; Translations: [Chronic obstructive pulmonary disease, unspecified]Onset: 89-43-8755MsowatfYepfqow ulcer of skin (17 sources)Non-pressure chronic ulcer of left heel and midfoot with fat layer exposed; Translations: [Non-pressure chronic ulcer of other part of left foot with unspecified severity]Onset: 51-81-7131KoajtigFhidvwisasrgj of surgical procedures or medical care (4 sources)Hemodialysis-associated hypotension; Translations: [Hypotension of hemodialysis]Onset: 756945-60-1260NmprjheVgluzxbwgtlek of surgical procedures or medical care (6 sources)Other complications of procedures, not elsewhere classified, initial encounter; Translations: [Other specified complications of surgical and medical care, not elsewhere classified, initial encounter]Onset: 40-43-7215Fvcmjbyi Congestive heart failure; nonhypertensive (1 source)Unspecified combined systolic (congestive) and diastolic (congestive) heart failure; Translations: [UNS COMB SYSTOLIC AND DIASTOLIC CHF]Onset: 68-84-2605XyovxryWyofuaed injury or internal injury (5 sources)Injury of kidney; Translations: [Acute kidney failure, unspecified] EpisodicDeficiency and other anemia (1 source)Anemia in chronic kidney disease; Translations: [Anemia in chronic kidney disease]ChronicDeficiency and other anemia (2 sources)Anemia in chronic kidney disease; Translations: [Anemia in chronic kidney disease]Onset: 03-21-2021 Resolved: 12-25-8277DmohvskKvmyzrllpd and other anemia (1 source)Anemia, unspecified; Translations: [ANEMIA UNSPECIFIED]Onset: 66-42-8895TxvxdslpXafxbtgg mellitus with complications (20 sources)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; Translations: [Type 2 diabetes mellitus with diabetic 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]Onset: 03-21-2021 Resolved: 20-68-8971JqkbnixIfmjermu mellitus without complication (19 sources)Type 2 diabetes mellitus; Translations: [Diabetes mellitus]Onset: 599792-87-1407WizfxrcRzavjxmt mellitus without complication (2 sources)Hyperglycemia; Translations: [Hyperglycemia, unspecified]Episodic Disorders of lipid metabolism (10 sources)Hyperlipidemia; Translations: [Hyperlipidemia, unspecified]Onset: 03-21-2021 Resolved: 69-93-3842ZrnsaxeChrcnuuadt disorders (20 sources)Gastroesophageal reflux disease; Translations: [Gastro-esophageal reflux disease without esophagitis]Onset: 25-40-0508OkizkowDhxzshcac hypertension (19 sources)Hypertensive disorder; Translations: [Essential (primary) hypertension]Onset: 56-77-3181JbbolwgYdotf and electrolyte disorders (20 sources)Metabolic acidosis; Translations: [Acidosis]Onset: 12-23-2024 EpisodicFracture of neck of femur (hip) (20 sources)Fracture of bone of hip region; Translations: [Fracture of unspecified part of neck of unspecified femur, initial encounter for closed fracture]Onset: 485557-52-3696WwcdegbzWncaqxlq of upper limb (10 sources)Fracture of distal end of radius; Translations: [Unspecified fracture of the lower end of unspecified radius, initial encounter for closed fracture]Onset: 908396-83-8576JkxbfynlAphaldar (7 sources)Critical lower limb ischemia ; Translations: [Atherosclerosis of [place] arteries of extremities with gangrene, left leg]Onset: 02-27-2024 27-86-8541GqxpautYjexxivzgrsib symptoms and ill-defined conditions (2 sources)Dysuria; Translations: [Dysuria]Onset: 13-28-5111UathfdpbUprilfclpibu with complications and secondary hypertension (20 sources)Chronic kidney disease due to hypertension; Translations: [Hypertensive chronic kidney disease withstage 1 through stage 4 chronic kidney disease, or unspecified chronic kidney disease]Onset: 03-21-2021 Resolved: 69-05-8217ZlayxngOsopmdqfk arthritis and osteomyelitis (except that caused by tuberculosis or sexually transmitted disease) (2 sources)Other chronic osteomyelitis, left ankle and foot; Translations: [Other acute osteomyelitis, left tibia and fibula]Onset: 34-23-2617VblpvdlKhrq disorders (1 source)Major depressive disorder, single episode, unspecified; Translations: [KILEY DEPRESS D/O SINGLE EPIS UNS]Onset: 16-13-0085CtolqaeTebplr and vomiting (1 source)Nausea; Translations: [Nausea]92-06-1414LppefetqJtyapktgavr deficiencies (1 source)Vitamin D deficiency, unspecified; Translations: [Vitamin D deficiency, unspecified]Onset: 03-61-6563YpwhywcOgmjf acquired deformities (1 source)Contracture, left ankle; Translations: [CONTRACTURE LEFT ANKLE]Onset: 49-77-7622IlvtxuqZwtwn aftercare (2 sources)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; Translations: [MD PHYSICIAN DERMATOLOGIST CURRENT USE OF INSULIN]Onset: 79-34-8660OogojihoDwfte bone disease and musculoskeletal deformities (1 source)Acquired absence of left foot; Translations: [ACQUIRED ABSENCE OF LEFT FOOT]Onset: 63-30-9052PaobvhdHnxue bone disease and musculoskeletal deformities (9 sources)Amputated foot; Translations: [Acquired absence of left foot]Onset: 734392-91-6857DdtyhzyRekgl bone disease and musculoskeletal deformities (9 sources)Amputated foot; Translations: [Acquired absence of right foot]Onset: 853201-62-1701ZotcnpgKmepl bone disease and musculoskeletal deformities (10 sources)History of amputation of right foot; Translations: [Acquired absence of other right toe(s)]14-92-6498UjqbtocxNyfjq bone disease and musculoskeletal deformities (4 sources)Acquired absence of other right toe(s); Translations: [Other toe(s) amputation status]EpisodicOther bone disease and musculoskeletal deformities (1 source)Disorder of bone, unspecified; Translations: [DISORDER OF BONE UNSPECIFIED]Onset: 90-27-2813UvigprxmXkqvv connective tissue disease (5 sources)Pain in left foot; Translations: [PAIN IN LEFT FOOT]Onset: 06-05-2022 EpisodicOther diseases of kidney and ureters (1 source)Hyperparathyroidism due to renal insufficiency; Translations: [Secondary hyperparathyroidism of renal origin]ChronicOther diseases of kidney and ureters (1 source)Secondary hyperparathyroidism of renal originOnset: 03-21-2021 Resolved: 65-62-3801CpocluwBwdrk hereditary and degenerative nervous system conditions (1 source)Other idiopathic peripheral autonomic neuropathy; Translations: [OTH IDIO PERIPH AUTONOM NEUROPATHY]Onset: 94-19-0898GmqlzjmWyzwf hereditary and degenerative nervous system conditions (6 sources)Idiopathic peripheral autonomic neuropathy; Translations: [Other idiopathic peripheral autonomic neuropathy]Onset: 499829-00-7908Eejgugv Other inflammatory condition of skin (19 sources)Psoriasis; Translations: [Psoriasis, unspecified]Onset: 01-24-2025 86-97-2991PyxuuhoMoadd inflammatory condition of skin (6 sources)Psoriasis, unspecified; Translations: [Other psoriasis]Onset: 69-89-0296TmlgepmBzztu inflammatory condition of skin (1 source)Other psoriasis; Translations: [OTHER PSORIASIS]Onset: 06-27-2022 ChronicOther liver diseases (1 source)Liver disease, unspecified; Translations: [LIVER DISEASE UNSPECIFIED] Onset: 95-74-8562JidmdhuFroga lower respiratory disease (8 sources)History of pleural effusion; Translations: [Personal history of other diseases of the respiratory system]57-78-0782DnegroolImugn lower respiratory disease (8 sources)Pleuritic pain; Translations: [Pleurodynia]40-04-4755KjrrdachCvltj lower respiratory disease (3 sources)Personal history of other diseases of the respiratory system; Translations: [Personal history of other diseases of respiratory system]Episodic Other lower respiratory disease (3 sources)Pleurodynia; Translations: [Painful respiration]EpisodicOther nutritional; endocrine; and metabolic disorders (10 sources)Morbid obesity; Translations: [Morbid (severe) obesity due to excess calories]83-21-9118SdipxgnDlbmr nutritional; endocrine; and metabolic disorders (5 sources)Morbid (severe) obesity due to excess calories; Translations: [Morbid obesity]Onset: 12-99-3482AtkspjtFest-; endo-; and myocarditis; cardiomyopathy (except that caused by tuberculosis or sexually transmitted disease) (11 sources)Pericarditis; Translations: [Disease of pericardium, unspecified] EpisodicPeripheral and visceral atherosclerosis (20 sources)Peripheral vascular disease; Translations: [Peripheral vascular disease, unspecified]Onset: 82-84-5242EwolypdCuqrfgny; pneumothorax; pulmonary collapse (20 sources)Thickening of pleura; Translations: [Fibrothorax]EpisodicPneumonia (except that caused by tuberculosis or sexually transmitted disease) (2 sources)Pneumonia; Translations: [Pneumonia, unspecified organism]Episodic Residual codes; unclassified (1 source)Postprocedural state finding; Translations: [Other specified postprocedural states]06-24-1641EluoljeoJnevqvtwhbm; intervertebral disc disorders; other back problems (12 sources)Spondylosis without myelopathy or radiculopathy, lumbar region; Translations: [Other intervertebraldisc degeneration, lumbar region]Onset: 66-64-7474KawndujYgheucvhy-related disorders (1 source)Smoker; Translations: [Nicotine dependence, unspecified, uncomplicated]ChronicUnclassified (1 source)History of amputation of right foot; Translations: [History of partial amputation of toe of right foot]Unclassified (1 source)CHRN KIDNEY DISEASE STG 3 UNSP; Translations: [CHRN KIDNEY DISEASE STG 3 UNSP]Onset: 05-06-6444Zyjeuwelvijp (1 source)CONTACT W/AND (SUSP) EXPOS COVID-19; Translations: [CONTACT W/AND (SUSP) EXPOS COVID-19]Onset: 58-09-3729Ayqjyfkcsikv (6 sources)Please consult to manage Hemodialysis.Unclassified (6 sources)Please follow post-op orders.Unclassified (4 sources)Call to schedule follow up appointment with PCP after discharge Unclassified (4 sources)Follow up with rehab physician as neededUnclassified (4 sources)Call to schedule follow up appointment with surgeon after discharge Unclassified (2 sources)Call to schedule follow up appointment with Nephrology per your routine schedule Past or Other Problems Problem ClassificationProblemDateDocumented DateEpisodic/ChronicAcquired foot deformities (2 sources)Other acquired deformities of left foot; Translations: [Valgus deformity, not elsewhere classified,left ankle]Onset: 00-10-1228Vunkksly Deficiency and other anemia (1 source)Iron deficiency anemia, unspecified; Translations: [IRON DEFICIENCY ANEMIA UNSPECIFIED]Onset: 42-50-4095CwzedsywAjqlq aftercare (7 sources)Other middle or intermediate school principal (current) drug therapy; Translations: [OTH [facility] CURRENT DRUG THERAPY]Onset: 10-17-6123RobdtepmAqvxg circulatory disease (1 source)Critical lower limb -24-7217MqobzigiUqoll connective tissue disease (1 source)Other muscle spasm; Translations: [OTHER MUSCLE SPASM]Onset: 76-91-5159SbpjvrdlXtgiv diseases of veins and lymphatics (1 source)Venous insufficiency (chronic) (peripheral); Translations: [VENOUS INSUFF CHRONIC PERIPHERAL]Onset: 57-10-3717PaycfsfaZdaso injuries and conditions due to external causes (1 source)Other injury of unspecified body region, sequela; Translations: [OTHER INJURY UNS BODY REGION SEQ]Onset: 16-68-0361WktgglswZajvs lower respiratory disease (5 sources)Shortness of breath; Translations: [SHORTNESS OF BREATH]Onset: 54-98-1936VszhmsusBgono lower respiratory disease (1 source)Other forms of dyspnea; Translations: [Other forms of dyspnea]Onset: 45-90-8201EkmiojshJntpr screening for suspected conditions (not mental disorders or infectious disease) (1 source)Encounter for screening for malignant neoplasm of prostate; Translations: [Encounter for screening for malignant neoplasm of prostate]Onset: 52-02-2277VmtybohnJjlkv skin disorders (1 source)Nail dystrophy; Translations: [NAIL DYSTROPHY]Onset: 06-27-2022 EpisodicResidual codes; unclassified (1 source)Localized edema; Translations: [LOCALIZED EDEMA]Onset: 06-05-2022 EpisodicResidual codes; unclassified (1 source)Acquired absence of other specified parts of digestive tract; Translations: [ACQ ABSENCE OTH PART DIGESTV TRACT]Onset: 57-35-0480Okkhsdxt Screening and history of mental health and substance abuse codes (1 source)Personal history of nicotine dependence; Translations: [PERSONAL HISTORY OF NICOTINE DEPEND]Onset: 83-79-9448WaqkdpydWkhk and subcutaneous tissue infections (14 sources)Abscess of face; Translations: [Abscess of neck]Onset: 09-29-2017 76-20-3817KgnnawtzLlgmrzvarau; intervertebral disc disorders; other back problems (4 sources)Muscle spasm of back; Translations: [MUSCLE SPASM OF BACK]Onset: 19-31-4068Xspqwzhx Results Test NameValueInterpretationReference RangeFacilityGlucose Poct Glucometerson 01-39-5765Osmhlkh5Osi8: Cleaned MeterNoAtrium Health Steele Creek Physician GroupComment on above:Result Comment: PERFORMED BY: [address] [place] [address] PATHOLOGIST BULL CHAIN OPERATOR CARLOS BIRMINGHAM M.D.Performed By: #### HEPACUTE, HBCAB, HBSAB #### [facility] ,Glucose [Mass/Vol]85 mg/dLOrlando Health South Semin[facility] Hospital Physician GroupComment on above: Result Comment: Random Glucose Reference Range is dependent on time and content of last meal. Glucose of more than 200 mg/dL in a nonstressed, ambulatory subject supports the diagnosis of Diabetes Mellitus.Performed By: #### HEPACUTE, HBCAB, HBSAB #### [facility] ,Glucose [Mass/Vol]85 mg/dLNoAtrium Health [facility] Physician GroupComment on above: Result Comment: Random Glucose Reference Range is dependent on time and content of last meal. Glucose of more than 200 mg/dL in a nonstressed, ambulatory subject supports the diagnosis of Diabetes Mellitus. PERFORMED BY: [place] [id number] PATHOLOGIST BULL CHAIN OPERATOR CARLOS BIRMINGHAM M.D.Performed By: #### HEPACUTE, HBCAB, HBSAB #### [facility] ,Glucose Poct Glucometerson 17-04-3860Swihkyd [Mass/Vol]296 mg/dLNoAtrium Health [facility] Physician GroupComment on above:Result Comment: Random Glucose Reference Range is dependent on time and content of last meal. Glucose of more than 200 mg/dL in a nonstressed, ambulatory subject supports the diagnosis of Diabetes Mellitus. PERFORMED BY: [place] [id number] PATHOLOGIST BULL CHAIN OPERATOR CARLOS BIRMINGHAM M.D.Performed By: #### HEPACUTE, HBCAB, HBSAB #### [facility] ,Glucose [Mass/Vol]131 mg/dLOrlando Health [facility] Hospital Physician GroupComment on above: Result Comment: Random Glucose Reference Range is dependent on time and content of last meal. Glucose of more than 200 mg/dL in a nonstressed, ambulatory subject supports the diagnosis of Diabetes Mellitus. PERFORMED BY: [place] [id number] PATHOLOGIST BULL CHAIN OPERATOR CARLOS BIRMINGHAM M.D.Performed By: #### HEPACUTE, HBCAB, HBSAB #### [facility] ,Glucose [Mass/Vol]116 mg/dLOrlando Health [facility] Hospital Physician GroupComment on above: Result Comment: Random Glucose Reference Range is dependent on time and content of last meal. Glucose of more than 200 mg/dL in a nonstressed, ambulatory subject supports the diagnosis of Diabetes Mellitus. PERFORMED BY: [place] [id number] PATHOLOGIST BULL CHAIN OPERATOR CARLOS BIRMINGHAM M.D.Performed By: #### GLULS #### Point of Care testing ,Glucose [Mass/Vol]118 mg/dLOrlando Health [facility] Semin[facility] Hospital Physician GroupComment on above: Result Comment: Random Glucose Reference Range is dependent on time and content of last meal. Glucose of more than 200 mg/dL in a nonstressed, ambulatory subject supports the diagnosis of Diabetes Mellitus. PERFORMED BY: [place] [address] PATHOLOGIST BULL CHAIN OPERATOR CARLOS BIRMINGHAM M.D.Performed By: #### GLULS #### Point of Care testing ,Glucose Poct Glucometerson 21-24-5488Zmbyyxc [Mass/Vol]75 mg/dLNoAtrium Health [facility] Creek Physician GroupComment on above:Result Comment: Random Glucose Reference Range is dependent on time and content of last meal. Glucose of more than 200 mg/dL in a nonstressed, ambulatory subject supports the diagnosis of Diabetes Mellitus. PERFORMED BY: [place] [id number] PATHOLOGIST BULL CHAIN OPERATOR CARLOS BIRMINGHAM M.D.Performed By: #### GLULS #### Point of Care testing ,Glucose [Mass/Vol]89 mg/dLNoAtrium Health [facility] Creek Physician GroupComment on above: Result Comment: Random Glucose Reference Range is dependent on time and content of last meal. Glucose of more than 200 mg/dL in a nonstressed, ambulatory subject supports the diagnosis of Diabetes Mellitus. PERFORMED BY: [place] [id number] PATHOLOGIST BULL CHAIN OPERATOR CARLOS BIRMINGHAM M.D.Performed By: #### HEPACUTE, HBCAB, HBSAB #### [facility] ,Glucose [Mass/Vol]114 mg/dLOrlando Health [facility] Hospital Physician GroupComment on above: Result Comment: Random Glucose Reference Range is dependent on time and content of last meal. Glucose of more than 200 mg/dL in a nonstressed, ambulatory subject supports the diagnosis of Diabetes Mellitus. PERFORMED BY: [address] [address] PATHOLOGIST BULL CHAIN OPERATOR CARLOS BIRMINGHAM M.D.Performed By: #### GLULS #### Point of Care testing ,Glucose [Mass/Vol]99 mg/dLNoAtrium Health [facility] Physician [facility] GulfportComment on above: Result Comment: Random Glucose Reference Range is dependent on time and content of last meal. Glucose of more than 200 mg/dL in a nonstressed, ambulatory subject supports the diagnosis of Diabetes Mellitus. PERFORMED BY: [place] [id number] PATHOLOGIST BULL CHAIN OPERATOR CARLOS BIRMINGHAM M.D.Performed By: #### GLULS #### Point of Care testing ,Glucose [Mass/Vol]80 mg/dLOrlando Health [facility] Hospital Physician GroupComment on above: Result Comment: Random Glucose Reference Range is dependent on time and content of last meal. Glucose of more than 200 mg/dL in a nonstressed, ambulatory subject supports the diagnosis of Diabetes Mellitus. PERFORMED BY: [address] [address] PATHOLOGIST BULL CHAIN OPERATOR CARLOS BIRMINGHAM M.D.Performed By: #### HEPACUTE, HBCAB, HBSAB #### [facility] ,Glucose [Mass/Vol]66 mg/dLNoAtrium Health Steele Creek Physician GroupComment on above: Result Comment: Random Glucose Reference Range is dependent on time and content of last meal. Glucose of more than 200 mg/dL in a nonstressed, ambulatory subject supports the diagnosis of Diabetes Mellitus. PERFORMED BY: [address] [address] PATHOLOGIST BULL CHAIN OPERATOR CARLOS BIRMINGHAM M.D.Performed By: #### GLULS #### Point of Care testing ,Renal Function Panelon 59-27-8355Rqhyzkq [Mass/Vol]3.3 g/dLLow3.5-5.7The [facility] Physician GroupComment on above:Performed By: #### GLULS #### Point of Care testing ,Anion gap [Moles/Vol]13.4 mmol/LNormal6.0-15.0The [facility] Comment on above:Performed By: #### GLULS #### Point of Care testing ,Calcium [Mass/Vol]10.1 mg/dLNormal8.6-10.3The [facility] Physician GroupComment on above:Performed By: #### GLULS #### Point of Care testing ,Chloride [Moles/Vol]98 mmol/ILaokug31-546Vwh [facility] Physician GroupComment on above:Performed By: #### GLULS #### Point of Care testing ,CO2 [Moles/Vol]26.9 mmol/LJqbfxa42.0-31.0The [facility] Physician GroupComment on above:Performed By: #### GLULS #### Point of Care testing ,Creatinine [Mass/Vol]5.69 mg/dLHigh0.70-1.30The [facility] Comment on above:Performed By: #### GLULS #### Point of Care testing ,Creatinine Clr Calc Qpdfydtj86.17NormalThe [facility] Physician GroupComment on above:Result Comment: PERFORMED BY: [place] [address] [address] [address] PATHOLOGIST BULL CHAIN OPERATOR CARLOS BIRMINGHAM M.D.Performed By: #### GLULS #### Point of Care testing ,GFR/1.73 sq M.predicted MDRD (S/P/Bld) [Vol rate/Area]10.432 mL/min/{1.73_m2} NormalThe [facility] Physician GroupComment on above:Performed By: #### GLULS #### Point of Care testing ,Glucose [Mass/Vol]78 mg/iUXwlhvr65-785Fon [facility] Physician GroupComment on above:Result Comment: Random Glucose Reference Range is dependent on time and content of last meal. Glucose of more than 200 mg/dL in a nonstressed, ambulatory subject supports the diagnosis of Diabetes Mellitus. ADA recommended reference rangePerformed By: #### GLULS #### Point of Care testing ,Phosphate [Mass/Vol]4.5 mg/dLNormal2.5-4.5The [facility] Physician GroupComment on above:Performed By: #### GLULS #### Point of Care testing ,Potassium [Moles/Vol]4.3 mmol/LNormal3.5-5.1The [facility] Comment on above:Performed By: #### GLULS #### Point of Care testing ,Sodium [Moles/Vol]134 mmol/GWhx447-364Sap [facility] Physician GroupComment on above:Performed By: #### GLULS #### Point of Care testing ,Urea nitrogen [Mass/Vol]35 mg/dLHigh7-25ThWeiser Memorial Hospital Physician GroupComment on above:Performed By: #### GLULS #### Point of Care testing ,Glucose Poct Glucometerson 08-00-3553Sfymqxw [Mass/Vol]130 mg/dLNormOrlando Health [facility] Seminole Hospital Physician GroupComment on above:Result Comment: Random Glucose Reference Range is dependent on time and content of last meal. Glucose of more than 200 mg/dL in a nonstressed, ambulatory subject supports the diagnosis of Diabetes Mellitus. PERFORMED BY: [place] [id number] PATHOLOGIST BULL CHAIN OPERATOR CARLOS BIRMINGHAM M.D.Performed By: #### HEPACUTE, HBCAB, HBSAB #### [facility] ,Glucose [Mass/Vol]136 mg/dLNoAtrium Health [facility] Physician [facility] GulfportComment on above: Result Comment: Random Glucose Reference Range is dependent on time and content of last meal. Glucose of more than 200 mg/dL in a nonstressed, ambulatory subject supports the diagnosis of Diabetes Mellitus. PERFORMED BY: [address] [address] PATHOLOGIST BULL CHAIN OPERATOR CARLOS BIRMINGHAM M.D.Performed By: #### HEPACUTE, HBCAB, HBSAB #### [facility] ,Glucose [Mass/Vol]105 mg/dLOrlando [facility] Physician [facility] GulfportComment on above: Result Comment: Random Glucose Reference Range is dependent on time and content of last meal. Glucose of more than 200 mg/dL in a nonstressed, ambulatory subject supports the diagnosis of Diabetes Mellitus. PERFORMED BY: [address] [address] PATHOLOGIST BULL CHAIN OPERATOR CARLOS BIRMINGHAM M.D.Performed By: #### HEPACUTE, HBCAB, HBSAB #### [facility] ,Glucose [Mass/Vol]69 mg/dLOrlando Health [facility] Semin[facility] Hospital Physician GroupComment on above: Result Comment: Random Glucose Reference Range is dependent on time and content of last meal. Glucose of more than 200 mg/dL in a nonstressed, ambulatory subject supports the diagnosis of Diabetes Mellitus. PERFORMED BY: [place] [address] PATHOLOGIST BULL CHAIN OPERATOR CARLOS BIRMINGHAM M.D.Performed By: #### GLULS #### Point of Care testing ,Mqleekm8FqvxhnNgw [facility] Physician GroupComment on above:Result Comment: Glu2: WILL NOTIFY DR/RN PERFORMED BY: [place] [address] PATHOLOGIST BULL CHAIN OPERATOR CARLOS BIRMINGHAM M.D.Performed By: #### HEPACUTE, HBCAB, HBSAB #### [facility] ,Glucose [Mass/Vol]48 mg/dLOff scale lowAdventhealth Wauchula Physician GroupComment on above:Result Comment: Random Glucose Reference Range is dependent on time and content of last meal. Glucose of more than 200 mg/dL in a nonstressed, ambulatory subject supports the diagnosis of Diabetes Mellitus.Performed By: #### HEPACUTE, HBCAB, HBSAB #### [facility] ,Glucose [Mass/Vol]89 mg/dLOrlando Health [facility] Semin[facility] Hospital Physician GroupComment on above: Result Comment: Random Glucose Reference Range is dependent on time and content of last meal. Glucose of more than 200 mg/dL in a nonstressed, ambulatory subject supports the diagnosis of Diabetes Mellitus. PERFORMED BY: [place] [address] PATHOLOGIST BULL CHAIN OPERATOR CARLOS BIRMINGHAM M.D.Performed By: #### GLULS #### Point of Care testing ,XR hip RT min 2V(w/wo pelvis)*on 11-72-4269ZO hip RT min 2V(w/wo pelvis)* [facility] Main [place] [id number] XRay Report Signed Patient: Rashard Lyman MR#: [id number] : 1960 Acct:[id number] Age/Sex: 64 / M ADM Date: 12/30/24 Loc: Room: [address] [place] [address] Type: ADM IN Attending Dr: Clayton Cardenas [...] 01/12/2025 4:27 PM Dictation Location: [place] [address] Transcribed By: [facility] 01/12/251626 Dictated By: Ari Santiago DO 01/12/251625 Signed By: 01/12/25 [employer]7[facility] Physician GroupXR knee RT 2Von 55-29-5280IE knee RT 2VBLAN[facility] Main [place] [id number] XRay Report Signed Patient: Rashard Lyman MR#: [id number] : 1960 Acct:[id number] Age/Sex: 64 / M ADM Date: 12/30/24 Loc: Room: [address] [place] [address] Type: ADM IN Attending Dr: Clayton Cardenas [...] Santiago M.D. 01/12/2025 4:29 PM Dictation Location: [place] [address] Transcribed By: [facility] 01/12/25 1629 Dictated By: Ari Santiago DO 01/12/25 1628 Signed By: 01/12/25 1629NoAtrium Health [facility] Physician [facility] Hospital At GulfportXR wrist RT 2Von 47-25-8332SV wrist RT 2[facility]BL[facility] [place] [address] XRay Report Signed Patient: Rashard Lyman MR#: [id number] : 1960 Acct:[id number] Age/Sex: 64 / M ADM Date: 12/30/24 Loc: Room: [address] [place] [address] Type: ADM IN Attending Dr: Clayton Cardenas MD Copies to: Clayton Cardenas MD Ordering Provider: Clyaton Cardenas MD Date of Service: 01/12/25 XR/XR [...] Santiago M.D. 01/12/2025 4:30 PM Dictation Location: [place] [address] Transcribed By: [facility] 01/12/25 1630 Dictated By: Ari Santiago DO 01/12/25 1629 Signed By: 01/12/25 1630NoAtrium Health [facility] Physician [facility] Hospital At GulfportGlucose Poct Glucometerson 22-57-9688Weqcmlv [Mass/Vol]182 mg/dLNoCleveland Clinic FoundationComment on above:Result Comment: Random Glucose Reference Range is dependent on time and content of last meal. Glucose of more than 200 mg/dL in a nonstressed, ambulatory subject supports the diagnosis of Diabetes Mellitus. PERFORMED BY: [place] [address] PATHOLOGIST BULL CHAIN OPERATOR CARLOS BIRMINGHAM M.D.Performed By: #### HEPACUTE, HBCAB, HBSAB #### [facility] ,Glucose [Mass/Vol]98 mg/dLNoAtrium Health [facility] Creek Physician GroupComment on above: Result Comment: Random Glucose Reference Range is dependent on time and content of last meal. Glucose of more than 200 mg/dL in a nonstressed, ambulatory subject supports the diagnosis of Diabetes Mellitus. PERFORMED BY: [place] [phone] PATHOLOGIST BULL CHAIN OPERATOR CARLOS BIRMINGHAM M.D.Performed By: #### GLULS #### Point of Care testing ,Hpbdlay1Jzd4: Cleaned MeterNoAtrium Health Steele Creek Physician GroupComment on above: Result Comment: PERFORMED BY: [place] [phone] PATHOLOGIST BULL CHAIN OPERATOR CARLOS BIRMINGHAM M.D.Performed By: #### RENAL #### [facility] [address] [place] [address] USAGlucose [Mass/Vol]97 mg/dLNoAtrium Health Steele Creek Physician GroupComment on above:Result Comment: Random Glucose Reference Range is dependent on time and content of last meal. Glucose of more than 200 mg/dL in a nonstressed, ambulatory subject supports the diagnosis of Diabetes Mellitus.Performed By: #### RENAL #### [facility] [address] [place] [address] USAGlucose [Mass/Vol]114 mg/dLOrlando Health South Seminole Hospital Physician GroupComment on above:Result Comment: Random Glucose Reference Range is dependent on time and content of last meal. Glucose of more than 200 mg/dL in a nonstressed, ambulatory subject supports the diagnosis of Diabetes Mellitus. PERFORMED BY: [place] [address] PATHOLOGIST BULL CHAIN OPERATOR CARLOS BIRMINGHAM M.D.Performed By: #### HEPACUTE, HBCAB, HBSAB #### [facility] ,Renal Function Panelon 72-98-2618Rkqyotn [Mass/Vol]3.0 g/dLLow3.5-5.7The [facility] Physician GroupComment on above:Performed By: #### HEPACUTE, HBCAB, HBSAB #### [facility] ,Anion gap [Moles/Vol]12.8 mmol/LNormal6.0-15.0The [facility] Comment on above:Performed By: #### HEPACUTE, HBCAB, HBSAB #### [facility] ,Calcium [Mass/Vol]9.9 mg/dLNormal8.6-10.3The [facility] Physician GroupComment on above:Performed By: #### HEPACUTE, HBCAB, HBSAB #### [facility] ,Chloride [Moles/Vol]99 mmol/VArsodl18-244Jhk [facility] Physician GroupComment on above:Performed By: #### HEPACUTE, HBCAB, HBSAB #### [facility] ,CO2 [Moles/Vol]28.7 mmol/YFyhkfd80.0-31.0The [facility] Physician GroupComment on above:Performed By: #### HEPACUTE, HBCAB, HBSAB #### [facility] ,Creatinine [Mass/Vol]6.77 mg/dLHigh0.70-1.30The [facility] Comment on above:Performed By: #### HEPACUTE, HBCAB, HBSAB #### [facility] ,Creatinine Clr Calc Qyegweal11.34NormalThWeiser Memorial Hospital Physician GroupComment on above:Result Comment: PERFORMED BY: [place] [address] [place] [address] PATHOLOGIST BULL CHAIN OPERATOR CARLOS BIRMINGHAM M.D.Performed By: #### HEPACUTE, HBCAB, HBSAB #### [facility] ,GFR/1.73 sq M.predicted MDRD (S/P/Bld) [Vol rate/Area]8.468 mL/min/{1.73_m2} NormalThe [facility] Physician GroupComment on above:Performed By: #### HEPACUTE, HBCAB, HBSAB #### [facility] ,Glucose [Mass/Vol]115 mg/nXZcvt81-248Ooq [facility] Physician GroupComment on above:Result Comment: Random Glucose Reference Range is dependent on time and content of last meal. Glucose of more than 200 mg/dL in a nonstressed, ambulatory subject supports the diagnosis of Diabetes Mellitus. ADA recommended reference rangePerformed By: #### HEPACUTE, HBCAB, HBSAB #### [facility] ,Phosphate [Mass/Vol]4.5 mg/dLNormal2.5-4.5The [facility] Physician GroupComment on above:Performed By: #### HEPACUTE, HBCAB, HBSAB #### [facility] ,Potassium [Moles/Vol]4.5 mmol/LNormal3.5-5.1The [facility] Comment on above:Result Comment: Hemolysis is present at a level that could interfere with the result. Contact lab if redraw is requiredPerformed By: #### HEPACUTE, HBCAB, HBSAB #### [facility] ,Sodium [Moles/Vol]136 mmol/BFlelul367-793Xnd [facility] Physician GroupComment on above:Performed By: #### HEPACUTE, HBCAB, HBSAB #### [facility] ,Urea nitrogen [Mass/Vol]44 mg/dLHigh7-25The [facility] Physician GroupComment on above:Performed By: #### HEPACUTE, HBCAB, HBSAB #### [facility] ,Glucose Poct Glucometerson 44-65-7294Bdzeumv [Mass/Vol]180 mg/dLNormalThe [facility] Physician GroupComment on above:Result Comment: Random Glucose Reference Range is dependent on time and content of last meal. Glucose of more than 200 mg/dL in a nonstressed, ambulatory subject supports the diagnosis of Diabetes Mellitus. PERFORMED BY: [place] [address] [place] [address] PATHOLOGIST BULL CHAIN OPERATOR CARLOS BIRMINGHAM M.D.Performed By: #### RENAL #### [facility] [address] [place] [address] USAGlucose [Mass/Vol]111 mg/dLOrlando Health South Seminole Hospital Physician GroupComment on above:Result Comment: Random Glucose Reference Range is dependent on time and content of last meal. Glucose of more than 200 mg/dL in a nonstressed, ambulatory subject supports the diagnosis of Diabetes Mellitus. PERFORMED BY: [place] [address] PATHOLOGIST BULL CHAIN OPERATOR CARLOS BIRMINGHAM M.D.Performed By: #### HEPACUTE, HBCAB, HBSAB #### [facility] ,Qxhrivy9Xlj4: Cleaned MeterNoWVUMedicine Barnesville Hospital GroupComment on above: Result Comment: PERFORMED BY: [place] [address] PATHOLOGIST BULL CHAIN OPERATOR CARLOS BIRMINGHAM M.D.Performed By: #### HEPACUTE, HBCAB, HBSAB #### [facility] ,Glucose [Mass/Vol]130 mg/dLNoAtrium Health [facility] Physician GroupComment on above: Result Comment: Random Glucose Reference Range is dependent on time and content of last meal. Glucose of more than 200 mg/dL in a nonstressed, ambulatory subject supports the diagnosis of Diabetes Mellitus.Performed By: #### HEPACUTE, HBCAB, HBSAB #### [facility] ,Glucose [Mass/Vol]79 mg/dLOrlando Health [facility] Hospital Physician GroupComment on above: Result Comment: Random Glucose Reference Range is dependent on time and content of last meal. Glucose of more than 200 mg/dL in a nonstressed, ambulatory subject supports the diagnosis of Diabetes Mellitus. PERFORMED BY: [place] [address] PATHOLOGIST BULL CHAIN OPERATOR CARLOS BIRMINGHAM M.D.Performed By: #### RENAL #### [place] [address] USAGlucose Poct Glucometerson 23-61-5989Qcrdtiz [Mass/Vol]187 mg/dLNoAtrium Health [facility] Creek Physician GroupComment on above:Result Comment: Random Glucose Reference Range is dependent on time and content of last meal. Glucose of more than 200 mg/dL in a nonstressed, ambulatory subject supports the diagnosis of Diabetes Mellitus. PERFORMED BY: [address] [place] [id number] PATHOLOGIST BULL CHAIN OPERATOR CARLOS BIRMINGHAM M.D.Performed By: #### HEPACUTE, HBCAB, HBSAB #### [facility] ,Xcooars8Vlw6: Cleaned MeterOrlando Health South Seminole Hospital Physician GroupComment on above: Result Comment: PERFORMED BY: [place] [address] PATHOLOGIST BULL CHAIN OPERATOR CARLOS BIRMINGHAM M.D.Performed By: #### HEPACUTE, HBCAB, HBSAB #### [facility] ,Glucose [Mass/Vol]198 mg/dLOrlando Health South Seminole Hospital Physician GroupComment on above: Result Comment: Random Glucose Reference Range is dependent on time and content of last meal. Glucose of more than 200 mg/dL in a nonstressed, ambulatory subject supports the diagnosis of Diabetes Mellitus.Performed By: #### HEPACUTE, HBCAB, HBSAB #### [facility] ,Illmgwr0Hri4: Cleaned MeterOrlando Health South Seminole Hospital Physician GroupComment on above: Result Comment: PERFORMED BY: [place] [id number] PATHOLOGIST BULL CHAIN OPERATOR CARLOS BIRMINGHAM M.D.Performed By: #### GLULS #### Point of Care testing ,Glucose [Mass/Vol]101 mg/dLOrlando Health South Seminole Hospital Physician GroupComment on above: Result Comment: Random Glucose Reference Range is dependent on time and content of last meal. Glucose of more than 200 mg/dL in a nonstressed, ambulatory subject supports the diagnosis of Diabetes Mellitus.Performed By: #### GLULS #### Point of Care testing ,Ydoohhq4Jtv3: Cleaned MeterOrlando Health South Seminole Hospital Physician GroupComment on above: Result Comment: PERFORMED BY: [address] [place] [address] PATHOLOGIST BULL CHAIN OPERATOR CARLOS BIRMINGHAM M.D.Performed By: #### GLULS #### Point of Care testing ,Glucose [Mass/Vol]61 mg/dLNormalThe [facility] Physician GroupComment on above: Result Comment: Random Glucose Reference Range is dependent on time and content of last meal. Glucose of more than 200 mg/dL in a nonstressed, ambulatory subject supports the diagnosis of Diabetes Mellitus.Performed By: #### GLULS #### Point of Care testing ,Complete Blood Count Auto Diffon 12-54-0617Uaqkhnrzy (Bld) [#/Vol]0.1 10*3/uL Normal0.0-0.2The [facility] Physician GroupComment on above:Result Comment: PERFORMED BY: [facility] [address] [facility] [address] PATHOLOGIST BULL CHAIN OPERATOR CARLOS BIRMINGHAM M.D.Performed By: #### HEPACUTE, HBCAB, HBSAB #### [facility] ,Basophils/100 WBC (Bld)1.1 %Normal.The [facility] Physician GroupComment on above:Performed By: #### HEPACUTE, HBCAB, HBSAB #### [facility] ,Eosinophils (Bld) [#/Vol]0.5 10*3/uLHigh0.0-0.45The [facility] Comment on above:Performed By: #### HEPACUTE, HBCAB, HBSAB #### [facility] ,Eosinophils/100 WBC (Bld)6.1 %Normal.The [facility] Physician GroupComment on above:Performed By: #### HEPACUTE, HBCAB, HBSAB #### [facility] ,Erythrocyte distribution width (RBC) [Ratio]14.5 %Agaqwb70.0-14.8The [facility] Physician GroupComment on above:Performed By: #### HEPACUTE, HBCAB, HBSAB #### [facility] ,Hematocrit (Bld) [Volume fraction]24.9 %Low38.8-50.0The [facility] Physician GroupComment on above:Performed By: #### HEPACUTE, HBCAB, HBSAB #### [facility] ,Hemoglobin (Bld) [Mass/Vol]8.2 g/dLLow13.0-17.0The [facility] Comment on above:Performed By: #### HEPACUTE, HBCAB, HBSAB #### [facility] ,Lymphocytes (Bld) [#/Vol]1.8 10*3/uLNormal1.00-4.8The [facility] Comment on above:Performed By: #### HEPACUTE, HBCAB, HBSAB #### [facility] ,Lymphocytes/100 WBC (Bld)21.3 %Normal.The [facility] Physician GroupComment on above:Performed By: #### HEPACUTE, HBCAB, HBSAB #### [facility] ,MCH (RBC) [Entitic mass]29.3 hxEpqxtc85.5-35.2The [facility] Comment on above:Performed By: #### HEPACUTE, HBCAB, HBSAB #### [facility] ,MCV (RBC) [Entitic vol]88.6 oEYllfdy24.5-101The [facility] Comment on above:Performed By: #### HEPACUTE, HBCAB, HBSAB #### [facility] ,Mean Corpuscular HGB Conc33.0 g/rTBswdiy30.5-35.6The [facility] Comment on above:Performed By: #### HEPACUTE, HBCAB, HBSAB #### [facility] ,Monocytes (Bld) [#/Vol]0.9 10*3/uLHigh0.0-0.8The [facility] Comment on above:Performed By: #### HEPACUTE, HBCAB, HBSAB #### [facility] ,Monocytes/100 WBC (Bld)10.9 %Normal.The [facility] Physician GroupComment on above:Performed By: #### HEPACUTE, HBCAB, HBSAB #### [facility] ,Neutrophils (Bld) [#/Vol]5.1 10*3/uLNormal1.8-7.7The [facility] Comment on above:Performed By: #### HEPACUTE, HBCAB, HBSAB #### [facility] ,Neutrophils/100 WBC (Bld)60.6 %Normal.The [facility] Physician GroupComment on above:Performed By: #### HEPACUTE, HBCAB, HBSAB #### [facility] ,NRBC%0.1 /100{WBC}Normal0-0.5The [facility] Physician GroupComment on above: Performed By: #### HEPACUTE, HBCAB, HBSAB #### [facility] ,Platelet mean volume (Bld) [Entitic vol]6.0 fLLow6.6-10.1The [facility] Physician GroupComment on above:Performed By: #### HEPACUTE, HBCAB, HBSAB #### [facility] ,Platelets (Bld) [#/Vol]370 10*3/pRAmubrr193-923Rpf [facility] Comment on above:Performed By: #### HEPACUTE, HBCAB, HBSAB #### [facility] ,RBC (Bld) [#/Vol]2.82 10*6/uLLow3.90-5.60The [facility] Physician GroupComment on above:Performed By: #### HEPACUTE, HBCAB, HBSAB #### [facility] ,WBC (Bld) [#/Vol]8.4 10*3/uLNormal4.1-10.5The [facility] Physician GroupComment on above:Performed By: #### HEPACUTE, HBCAB, HBSAB #### [facility] ,White Blood Count8.4 [CFU]/mLNormal4.1-10.5The [facility] Physician GroupComment on above:Performed By: #### HEPACUTE, HBCAB, HBSAB #### [facility] ,Glucose Poct Glucometerson 26-73-9586Vtwgxks [Mass/Vol]207 mg/dLOrlando Health [facility] Hospital Physician GroupComment on above:Result Comment: Random Glucose Reference Range is dependent on time and content of last meal. Glucose of more than 200 mg/dL in a nonstressed, ambulatory subject supports the diagnosis of Diabetes Mellitus. PERFORMED BY: [phone] PATHOLOGIST BULL CHAIN OPERATOR CARLOS BIRMINGHAM M.D.Performed By: #### RENAL #### [facility] [address] [place] [address] USAGlucose [Mass/Vol]99 mg/dLOrlando Health South Seminole Hospital Physician GroupComment on above:Result Comment: Random Glucose Reference Range is dependent on time and content of last meal. Glucose of more than 200 mg/dL in a nonstressed, ambulatory subject supports the diagnosis of Diabetes Mellitus. PERFORMED BY: [place] [phone] PATHOLOGIST BULL CHAIN OPERATOR CARLOS BIRMINGHAM M.D.Performed By: #### RENAL, MG #### [facility] [address] [place] [address] VYGNhyuslo1Zpi0: Cleaned MeterOrlando Health South Seminole Hospital Physician GroupComment on above:Result Comment: PERFORMED BY: [place] [phone] PATHOLOGIST BULL CHAIN OPERATOR CARLOS BIRMINGHAM M.D.Performed By: #### GLULS #### Point of Care testing ,Glucose [Mass/Vol]122 mg/dLOrlando Health South Seminole Hospital Physician GroupComment on above: Result Comment: Random Glucose Reference Range is dependent on time and content of last meal. Glucose of more than 200 mg/dL in a nonstressed, ambulatory subject supports the diagnosis of Diabetes Mellitus.Performed By: #### GLULS #### Point of Care testing ,Faclamg4Ypx4: Cleaned MeterNoAtrium Health Steele Creek Physician GroupComment on above: Result Comment: PERFORMED BY: [place] [address] PATHOLOGIST BULL CHAIN OPERATOR CARLOS BIRMINGHAM M.D.Performed By: #### HEPACUTE, HBCAB, HBSAB #### [facility] ,Glucose [Mass/Vol]87 mg/dLNormalThe [facility] Physician GroupComment on above: Result Comment: Random Glucose Reference Range is dependent on time and content of last meal. Glucose of more than 200 mg/dL in a nonstressed, ambulatory subject supports the diagnosis of Diabetes Mellitus.Performed By: #### HEPACUTE, HBCAB, HBSAB #### [facility] ,Renal Function Panelon 36-80-9714Wfiihsa [Mass/Vol]3.1 g/dLLow3.5-5.7The [facility] Physician GroupComment on above:Performed By: #### RENAL #### [facility] [address] [place] [address] USAAnion gap [Moles/Vol]11.9 mmol/LNormal6.0-15.0The [facility] Physician GroupComment on above:Performed By: #### RENAL #### [facility] [address] [place] [address] USACalcium [Mass/Vol]10.4 mg/dLHigh8.6-10.3The [facility] Physician GroupComment on above:Performed By: #### RENAL #### [facility] [address] [place] [address] USAChloride [Moles/Vol]99 mmol/DVffqkc48-636Ulk [facility] Physician GroupComment on above:Performed By: #### RENAL #### [facility] [address] [place] [address] USACO2 [Moles/Vol]27.2 mmol/TAawsjo11.0-31.0The [facility] Physician GroupComment on above:Performed By: #### RENAL #### [facility] [address] [place] [address] USACreatinine [Mass/Vol]5.10 mg/dLHigh0.70-1.30The [facility] Physician GroupComment on above:Performed By: #### RENAL #### [place] [address] USACreatinine Clr Calc Kawcmtyl20.08NormalThe [facility] Physician GroupComment on above:Result Comment: PERFORMED BY: [place] [address] PATHOLOGIST BULL CHAIN OPERATOR CARLOS BIRMINGHAM M.D.Performed By: #### RENAL #### [place] [address] USAGFR/1.73 sq M.predicted MDRD (S/P/Bld) [Vol rate/Area] 11.897 mL/min/{1.73_m2}NormalThe [facility] Physician GroupComment on above: Performed By: #### RENAL #### [place] [address] USAGlucose [Mass/Vol]90 mg/xHDmeljr74-717Mtn [facility] Physician GroupComment on above:Result Comment: Random Glucose Reference Range is dependent on time and content of last meal. Glucose of more than 200 mg/dL in a nonstressed, ambulatory subject supports the diagnosis of Diabetes Mellitus. ADA recommended reference rangePerformed By: #### RENAL #### [place] [address] USAPhosphate [Mass/Vol]4.1 mg/dLNormal2.5-4.5The [facility] Physician GroupComment on above:Performed By: #### RENAL #### [place] [address] USAPotassium [Moles/Vol]4.1 mmol/LNormal3.5-5.1The [facility] Physician GroupComment on above:Performed By: #### RENAL #### [place] [address] USASodium [Moles/Vol]134 mmol/QMxq825-264Tcp [facility] Physician GroupComment on above:Performed By: #### RENAL #### [place] [address] USAUrea nitrogen [Mass/Vol]34 mg/dLHigh7-25The [facility] Physician GroupComment on above:Performed By: #### RENAL #### [place] [address] USAGlucose Poct Glucometerson 53-97-3257Ouididk9Uet1: Cleaned MeterNoAtrium Health Steele Creek Physician [facility] Hospital At GulfportComment on above:Result Comment: PERFORMED BY: [place] [address] PATHOLOGIST BULL CHAIN OPERATOR CARLOS BIRMINGHAM M.D.Performed By: #### HEPACUTE, HBCAB, HBSAB #### [facility] ,Glucose [Mass/Vol]189 mg/dLNoAtrium Health Steele Creek Physician GroupComment on above: Result Comment: Random Glucose Reference Range is dependent on time and content of last meal. Glucose of more than 200 mg/dL in a nonstressed, ambulatory subject supports the diagnosis of Diabetes Mellitus.Performed By: #### HEPACUTE, HBCAB, HBSAB #### [facility] ,Glucose [Mass/Vol]138 mg/dLOrlando Health [facility]inole Hospital Physician GroupComment on above: Result Comment: Random Glucose Reference Range is dependent on time and content of last meal. Glucose of more than 200 mg/dL in a nonstressed, ambulatory subject supports the diagnosis of Diabetes Mellitus. PERFORMED BY: [place] [address] PATHOLOGIST BULL CHAIN OPERATOR CARLOS BIRMINGHAM M.D.Performed By: #### GLULS #### Point of Care testing ,Glucose [Mass/Vol]131 mg/dLOrlando Health [facility] Seminole Hospital Physician GroupComment on above: Result Comment: Random Glucose Reference Range is dependent on time and content of last meal. Glucose of more than 200 mg/dL in a nonstressed, ambulatory subject supports the diagnosis of Diabetes Mellitus. PERFORMED BY: [place] [address] PATHOLOGIST BULL CHAIN OPERATOR CARLOS BIRMINGHAM M.D.Performed By: #### HEPACUTE, HBCAB, HBSAB #### [facility] ,Glucose [Mass/Vol]93 mg/dLOrlando Health [facility] Seminole Hospital Physician GroupComment on above: Result Comment: Random Glucose Reference Range is dependent on time and content of last meal. Glucose of more than 200 mg/dL in a nonstressed, ambulatory subject supports the diagnosis of Diabetes Mellitus. PERFORMED BY: [place] [address] PATHOLOGIST BULL CHAIN OPERATOR CARLOS BIRMINGHAM M.D.Performed By: #### HEPACUTE, HBCAB, HBSAB #### [facility] ,Glucose Poct Glucometerson 08-45-8881Ekrhyka [Mass/Vol]273 mg/dLOrlando Health [facility] Seminole Hospital Physician GroupComment on above:Result Comment: Random Glucose Reference Range is dependent on time and content of last meal. Glucose of more than 200 mg/dL in a nonstressed, ambulatory subject supports the diagnosis of Diabetes Mellitus. PERFORMED BY: [place] [address] PATHOLOGIST BULL CHAIN OPERATOR CARLOS BIRMINGHAM M.D.Performed By: #### HEPACUTE, HBCAB, HBSAB #### [facility] ,Glucose [Mass/Vol]147 mg/dLOrlando Health [facility] Seminole Hospital Physician GroupComment on above: Result Comment: Random Glucose Reference Range is dependent on time and content of last meal. Glucose of more than 200 mg/dL in a nonstressed, ambulatory subject supports the diagnosis of Diabetes Mellitus. PERFORMED BY: [place] [address] PATHOLOGIST BULL CHAIN OPERATOR CARLOS BIRMINGHAM M.D.Performed By: #### HEPACUTE, HBCAB, HBSAB #### [facility] ,Vrjduuc2Ucf4: Cleaned MeterNoAtrium Health Steele Creek Physician GroupComment on above: Result Comment: PERFORMED BY: [place] [address] PATHOLOGIST BULL CHAIN OPERATOR CARLOS BIRMINGHAM M.D.Performed By: #### HEPACUTE, HBCAB, HBSAB #### [facility] ,Glucose [Mass/Vol]169 mg/dLOrlando Health [facility]ole Hospital Physician GroupComment on above: Result Comment: Random Glucose Reference Range is dependent on time and content of last meal. Glucose of more than 200 mg/dL in a nonstressed, ambulatory subject supports the diagnosis of Diabetes Mellitus.Performed By: #### HEPACUTE, HBCAB, HBSAB #### [facility] ,Glucose [Mass/Vol]99 mg/dLNoAtrium Health Steele Creek Physician GroupComment on above: Result Comment: Random Glucose Reference Range is dependent on time and content of last meal. Glucose of more than 200 mg/dL in a nonstressed, ambulatory subject supports the diagnosis of Diabetes Mellitus. PERFORMED BY: [address] [place] [address] PATHOLOGIST BULL CHAIN OPERATOR CARLOS BIRMINGHAM M.D.Performed By: #### HEPACUTE, HBCAB, HBSAB #### [facility] ,Diff and CBCon 40-36-4218Gtiaeuouqahc Ql (Bld)SlightNormOrlando Health [facility] Seminole Hospital Physician GroupComment on above:Performed By: #### HEPACUTE, HBCAB, HBSAB #### [facility] ,Band form neutrophils/100 WBC (Bld)4 %Normal0-5The [facility] Physician Group Comment on above:Performed By: #### HEPACUTE, HBCAB, HBSAB #### [facility] ,Eosinophils/100 WBC (Bld)5 %High1-3The [facility] Physician GroupComment on above:Performed By: #### HEPACUTE, HBCAB, HBSAB #### [facility] ,Erythrocyte distribution width (RBC) [Ratio]14.2 %Nwyanr56.0-14.8The [facility] Physician GroupComment on above:Performed By: #### HEPACUTE, HBCAB, HBSAB #### [facility] ,Hematocrit (Bld) [Volume fraction]25.2 %Low38.8-50.0The [facility] Physician GroupComment on above:Performed By: #### HEPACUTE, HBCAB, HBSAB #### [facility] ,Hemoglobin (Bld) [Mass/Vol]8.3 g/dLLow13.0-17.0The [facility] Physician Group Comment on above:Performed By: #### HEPACUTE, HBCAB, HBSAB #### [facility] ,Large PlateletsSNovant Health Clemmons Medical Center Physician GroupComment on above:Result Comment: PERFORMED BY: [facility] [place] [address] PATHOLOGIST BULL CHAIN OPERATOR CARLOS BIRMINGHAM M.D.Performed By: #### HEPACUTE, HBCAB, HBSAB #### [facility] ,Lymphocytes/100 WBC (Bld)17 %Vnn88-85Xvz [facility] Physician GroupComment on above:Performed By: #### HEPACUTE, HBCAB, HBSAB #### [facility] ,MCH (RBC) [Entitic mass]29.1 djKzgudc19.5-35.2The [facility] Physician Group Comment on above:Performed By: #### HEPACUTE, HBCAB, HBSAB #### [facility] ,MCV (RBC) [Entitic vol]88.7 zKTjjtbo88.5-101The [facility] Physician Group Comment on above:Performed By: #### HEPACUTE, HBCAB, HBSAB #### [facility] ,Mean Corpuscular HGB Conc32.8 g/bSAnefpj50.5-35.6The [facility] Physician Group Comment on above:Performed By: #### HEPACUTE, HBCAB, HBSAB #### [facility] ,MicrocytosisSNovant Health Clemmons Medical Center Physician GroupComment on above:Performed By: #### HEPACUTE, HBCAB, HBSAB #### [facility] ,Monocytes/100 WBC (Bld)6 %Normal2-11The [facility] Physician GroupComment on above:Performed By: #### HEPACUTE, HBCAB, HBSAB #### [facility] ,Myelocytes1 %High0-0The [facility] Physician GroupComment on above:Performed By: #### HEPACUTE, HBCAB, HBSAB #### [facility] ,Platelet EstimateNormalNormHialeah Hospital Physician GroupComment on above:Performed By: #### HEPACUTE, HBCAB, HBSAB #### [facility] ,Platelet mean volume (Bld) [Entitic vol]6.3 fLLow6.6-10.1The [facility] Physician GroupComment on above:Performed By: #### HEPACUTE, HBCAB, HBSAB #### [facility] ,Platelets (Bld) [#/Vol]349 10*3/xQInojke606-137Zle [facility] Physician Group Comment on above:Performed By: #### HEPACUTE, HBCAB, HBSAB #### [facility] ,PoikilocytosisSNovant Health Clemmons Medical Center Physician GroupComment on above: Performed By: #### HEPACUTE, HBCAB, HBSAB #### [facility] ,PolychromasiaSNovant Health Clemmons Medical Center Physician GroupComment on above: Performed By: #### HEPACUTE, HBCAB, HBSAB #### [facility] ,RBC (Bld) [#/Vol]2.84 10*6/uLLow3.90-5.60The [facility] Physician GroupComment on above:Performed By: #### HEPACUTE, HBCAB, HBSAB #### [facility] ,Segmented neutrophils/100 WBC (Bld)68 %Ketmzv85-15Pgb [facility] Physician [facility] Comment on above:Performed By: #### HEPACUTE, HBCAB, HBSAB #### [facility] ,StomatocytesSNovant Health Clemmons Medical Center Physician GroupComment on above:Performed By: #### HEPACUTE, HBCAB, HBSAB #### [facility] ,WBC (Bld) [#/Vol]9.3 10*3/uLNormal4.1-10.5The [facility] Physician GroupComment on above:Performed By: #### HEPACUTE, HBCAB, HBSAB #### [facility] ,White Blood Count9.3 [CFU]/mLNormal4.1-10.5The [facility] Physician [facility] GulfportComment on above:Performed By: #### HEPACUTE, HBCAB, HBSAB #### [facility] ,Glucose Poct Glucometerson 56-72-8808Hfxbwzg [Mass/Vol]209 mg/dLNoAtrium Health [facility] Creek Physician [facility] GulfportComment on above:Result Comment: Random Glucose Reference Range is dependent on time and content of last meal. Glucose of more than 200 mg/dL in a nonstressed, ambulatory subject supports the diagnosis of Diabetes Mellitus. PERFORMED BY: [place] [phone] PATHOLOGIST BULL CHAIN OPERATOR CARLOS BIRMINGHAM M.D.Performed By: #### RENAL, MG #### [place] [address] USAGlucose [Mass/Vol]172 mg/dLNoAtrium Health [facility] Physician [facility] GulfportComment on above:Result Comment: Random Glucose Reference Range is dependent on time and content of last meal. Glucose of more than 200 mg/dL in a nonstressed, ambulatory subject supports the diagnosis of Diabetes Mellitus. PERFORMED BY: [place] [phone] PATHOLOGIST BULL CHAIN OPERATOR CARLOS BIRMINGHAM M.D.Performed By: #### GLULS #### Point of Care testing ,Glucose [Mass/Vol]121 mg/dLNoAtrium Health [facility] Physician [facility] GulfportComment on above: Result Comment: Random Glucose Reference Range is dependent on time and content of last meal. Glucose of more than 200 mg/dL in a nonstressed, ambulatory subject supports the diagnosis of Diabetes Mellitus. PERFORMED BY: [place] [phone] PATHOLOGIST BULL CHAIN OPERATOR CARLOS BIRMINGHAM M.D.Performed By: #### HEPACUTE, HBCAB, HBSAB #### [facility] ,Glucose [Mass/Vol]86 mg/dLOrlando Health South Seminole Hospital Physician GroupComment on above: Result Comment: Random Glucose Reference Range is dependent on time and content of last meal. Glucose of more than 200 mg/dL in a nonstressed, ambulatory subject supports the diagnosis of Diabetes Mellitus. PERFORMED BY: [address] [place] [address] PATHOLOGIST BULL CHAIN OPERATOR CARLOS BIRMINGHAM M.D.Performed By: #### HEPACUTE, HBCAB, HBSAB #### [facility] ,Complete Blood Count Auto Diffon 62-54-7392Dgbjcqutj (Bld) [#/Vol]0.2 10*3/uL Normal0.0-0.2The [facility] Physician GroupComment on above:Result Comment: PERFORMED BY: [address] [place] [address] PATHOLOGIST BULL CHAIN OPERATOR CARLOS BIRMINGHAM M.D.Performed By: #### HEPACUTE, HBCAB, HBSAB #### [facility] ,Basophils/100 WBC (Bld)1.3 %Normal.The [facility] Physician GroupComment on above:Performed By: #### HEPACUTE, HBCAB, HBSAB #### [facility] ,Eosinophils (Bld) [#/Vol]0.6 10*3/uLHigh0.0-0.45The [facility] Physician Group Comment on above:Performed By: #### HEPACUTE, HBCAB, HBSAB #### [facility] ,Eosinophils/100 WBC (Bld)4.6 %Normal.The [facility] Physician GroupComment on above:Performed By: #### HEPACUTE, HBCAB, HBSAB #### [facility] ,Erythrocyte distribution width (RBC) [Ratio]14.0 %Eacmme59.0-14.8The [facility] Physician GroupComment on above:Performed By: #### HEPACUTE, HBCAB, HBSAB #### [facility] ,Hematocrit (Bld) [Volume fraction]27.3 %Low38.8-50.0The [facility] Physician GroupComment on above:Performed By: #### HEPACUTE, HBCAB, HBSAB #### [facility] ,Hemoglobin (Bld) [Mass/Vol]8.9 g/dLLow13.0-17.0The [facility]ician [facility] Comment on above:Performed By: #### HEPACUTE, HBCAB, HBSAB #### [facility] ,Lymphocytes (Bld) [#/Vol]2.6 10*3/uLNormal1.00-4.8The [facility] Comment on above:Performed By: #### HEPACUTE, HBCAB, HBSAB #### [facility] ,Lymphocytes/100 WBC (Bld)20.4 %Normal.The [facility] Physician GroupComment on above:Performed By: #### HEPACUTE, HBCAB, HBSAB #### [facility] ,MCH (RBC) [Entitic mass]28.9 rvPldbzy14.5-35.2The [facility]ician [facility] Comment on above:Performed By: #### HEPACUTE, HBCAB, HBSAB #### [facility] ,MCV (RBC) [Entitic vol]88.7 zCQqxjju09.5-101The [facility]ician [facility] Comment on above:Performed By: #### HEPACUTE, HBCAB, HBSAB #### [facility] ,Mean Corpuscular HGB Conc32.6 g/eQQfawlf19.5-35.6The [facility] Comment on above:Performed By: #### HEPACUTE, HBCAB, HBSAB #### [facility] ,Monocytes (Bld) [#/Vol]0.9 10*3/uLHigh0.0-0.8The [facility] Comment on above:Performed By: #### HEPACUTE, HBCAB, HBSAB #### [facility] ,Monocytes/100 WBC (Bld)7.1 %Normal.The [facility] Physician GroupComment on above:Performed By: #### HEPACUTE, HBCAB, HBSAB #### [facility] ,Neutrophils (Bld) [#/Vol]8.5 10*3/uLHigh1.8-7.7The [facility] Comment on above:Performed By: #### HEPACUTE, HBCAB, HBSAB #### [facility] ,Neutrophils/100 WBC (Bld)66.6 %Normal.The [facility] Physician GroupComment on above:Performed By: #### HEPACUTE, HBCAB, HBSAB #### [facility] ,NRBC%0.0 /100{WBC}Normal0-0.5The [facility] Physician GroupComment on above: Performed By: #### HEPACUTE, HBCAB, HBSAB #### [facility] ,Platelet mean volume (Bld) [Entitic vol]6.8 fLNormal6.6-10.1The [facility] Physician GroupComment on above:Performed By: #### HEPACUTE, HBCAB, HBSAB #### [facility] ,Platelets (Bld) [#/Vol]381 10*3/lIGxkulf536-167Xcz [facility] Comment on above:Performed By: #### HEPACUTE, HBCAB, HBSAB #### [facility] ,RBC (Bld) [#/Vol]3.08 10*6/uLLow3.90-5.60The [facility] Physician GroupComment on above:Performed By: #### HEPACUTE, HBCAB, HBSAB #### [facility] ,WBC (Bld) [#/Vol]12.7 10*3/uLHigh4.1-10.5The [facility] Physician GroupComment on above:Performed By: #### HEPACUTE, HBCAB, HBSAB #### [facility] ,White Blood Count12.7 [CFU]/mLHigh4.1-10.5The [facility] Physician GroupComment on above:Performed By: #### HEPACUTE, HBCAB, HBSAB #### [facility] ,Glucose Poct Glucometerson 98-59-3783Nomzvbj [Mass/Vol]155 mg/dLOrlando Health South Seminole Hospital Physician GroupComment on above:Result Comment: Random Glucose Reference Range is dependent on time and content of last meal. Glucose of more than 200 mg/dL in a nonstressed, ambulatory subject supports the diagnosis of Diabetes Mellitus. PERFORMED BY: [place] [address] PATHOLOGIST BULL CHAIN OPERATOR CARLOS BIRMINGHAM M.D.Performed By: #### GLULS #### Point of Care testing ,Glucose [Mass/Vol]81 mg/dLOrlando Health [facility]inole Hospital Physician GroupComment on above: Result Comment: Random Glucose Reference Range is dependent on time and content of last meal. Glucose of more than 200 mg/dL in a nonstressed, ambulatory subject supports the diagnosis of Diabetes Mellitus. PERFORMED BY: [place] [address] PATHOLOGIST BULL CHAIN OPERATOR CARLOS BIRMINGHAM M.D.Performed By: #### GLULS #### Point of Care testing ,Fhqzgcd9Vdu8: Cleaned MeterNoAtrium Health Steele Creek Physician GroupComment on above: Result Comment: PERFORMED BY: [place] [address] PATHOLOGIST BULL CHAIN OPERATOR CARLOS BIRMINGHAM M.D.Performed By: #### RENAL #### [facility] [address] [place] [address] USAGlucose [Mass/Vol]120 mg/dLOrlando Health South Sem[facility]ole Hospital Physician GroupComment on above:Result Comment: Random Glucose Reference Range is dependent on time and content of last meal. Glucose of more than 200 mg/dL in a nonstressed, ambulatory subject supports the diagnosis of Diabetes Mellitus.Performed By: #### RENAL #### [facility] [address] [place] [address] USAGlucose [Mass/Vol]111 mg/dLOrlando Health [facility] Hospital Physician GroupComment on above:Result Comment: Random Glucose Reference Range is dependent on time and content of last meal. Glucose of more than 200 mg/dL in a nonstressed, ambulatory subject supports the diagnosis of Diabetes Mellitus. PERFORMED BY: [place] [address] PATHOLOGIST BULL CHAIN OPERATOR CARLOS BIRMINGHAM M.D.Performed By: #### RENAL #### [address] [address] USARenal Function Panelon 12-93-7832Hqmshju [Mass/Vol]3.2 g/dLLow3.5-5.7The [facility] Physician GroupComment on above:Performed By: #### HEPACUTE, HBCAB, HBSAB #### [facility] ,Anion gap [Moles/Vol]13.1 mmol/LNormal6.0-15.0The [facility] Comment on above:Performed By: #### HEPACUTE, HBCAB, HBSAB #### [facility] ,Calcium [Mass/Vol]10.0 mg/dLNormal8.6-10.3The [facility] Physician GroupComment on above:Performed By: #### HEPACUTE, HBCAB, HBSAB #### [facility] ,Chloride [Moles/Vol]97 mmol/WPqb52-820Sxg [facility] Physician [facility] GulfportComment on above:Performed By: #### HEPACUTE, HBCAB, HBSAB #### [facility] ,CO2 [Moles/Vol]29.0 mmol/BXqffoh61.0-31.0The [facility] Physician GroupComment on above:Performed By: #### HEPACUTE, HBCAB, HBSAB #### [facility] ,Creatinine [Mass/Vol]6.38 mg/dLHigh0.70-1.30The [facility] Physician [facility] Comment on above:Performed By: #### HEPACUTE, HBCAB, HBSAB #### [facility] ,Creatinine Clr Calc Uehxpfyc82.00NormalThe [facility] Physician GroupComment on above:Result Comment: PERFORMED BY: [address] [address] PATHOLOGIST BULL CHAIN OPERATOR CARLOS S VINNIE M.D.Performed By: #### HEPACUTE, HBCAB, HBSAB #### [facility] ,GFR/1.73 sq M.predicted MDRD (S/P/Bld) [Vol rate/Area]9.094 mL/min/{1.73_m2} NormalThe [facility] Physician GroupComment on above:Performed By: #### HEPACUTE, HBCAB, HBSAB #### [facility] ,Glucose [Mass/Vol]150 mg/oASsjo46-732Ncu [facility] Physician GroupComment on above:Result Comment: Random Glucose Reference Range is dependent on time and content of last meal. Glucose of more than 200 mg/dL in a nonstressed, ambulatory subject supports the diagnosis of Diabetes Mellitus. ADA recommended reference rangePerformed By: #### HEPACUTE, HBCAB, HBSAB #### [facility] ,Phosphate [Mass/Vol]4.8 mg/dLHigh2.5-4.5The [facility] Physician GroupComment on above:Performed By: #### HEPACUTE, HBCAB, HBSAB #### [facility] ,Potassium [Moles/Vol]4.1 mmol/LNormal3.5-5.1The [facility] Comment on above:Performed By: #### HEPACUTE, HBCAB, HBSAB #### [facility] ,Sodium [Moles/Vol]135 mmol/XPyh147-910Vjw [facility] Physician GroupComment on above:Performed By: #### HEPACUTE, HBCAB, HBSAB #### [facility] ,Urea nitrogen [Mass/Vol]47 mg/dLHigh7-25The [facility] Physician GroupComment on above:Performed By: #### HEPACUTE, HBCAB, HBSAB #### [facility] ,Glucose Poct Glucometerson 04-04-3255Jkpjfhw [Mass/Vol]259 mg/dLNormalThe [facility] Physician GroupComment on above:Result Comment: Random Glucose Reference Range is dependent on time and content of last meal. Glucose of more than 200 mg/dL in a nonstressed, ambulatory subject supports the diagnosis of Diabetes Mellitus. PERFORMED BY: [place] [address] PATHOLOGIST BULL CHAIN OPERATOR CARLOS BIRMINGHAM M.D.Performed By: #### HEPACUTE, HBCAB, HBSAB #### [facility] ,Rxgsxjz1Xkr7: Cleaned MeterOrlando Health South Seminole Hospital Physician GroupComment on above: Result Comment: PERFORMED BY: [place] [address] PATHOLOGIST BULL CHAIN OPERATOR CARLOS BIRMINGHAM M.D.Performed By: #### GLULS #### Point of Care testing ,Glucose [Mass/Vol]144 mg/dLOrlando Health South Seminole Hospital Physician GroupComment on above: Result Comment: Random Glucose Reference Range is dependent on time and content of last meal. Glucose of more than 200 mg/dL in a nonstressed, ambulatory subject supports the diagnosis of Diabetes Mellitus.Performed By: #### GLULS #### Point of Care testing ,Glucose [Mass/Vol]157 mg/dLOrlando Health [facility] Hospital Physician GroupComment on above: Result Comment: Random Glucose Reference Range is dependent on time and content of last meal. Glucose of more than 200 mg/dL in a nonstressed, ambulatory subject supports the diagnosis of Diabetes Mellitus. PERFORMED BY: [place] [address] PATHOLOGIST BULL CHAIN OPERATOR CARLOS BIRMINGHAM M.D.Performed By: #### HEPACUTE, HBCAB, HBSAB #### [facility] ,Glucose [Mass/Vol]104 mg/dLOrlando Health [facility] Hospital Physician GroupComment on above: Result Comment: Random Glucose Reference Range is dependent on time and content of last meal. Glucose of more than 200 mg/dL in a nonstressed, ambulatory subject supports the diagnosis of Diabetes Mellitus. PERFORMED BY: [place] [address] PATHOLOGIST BULL CHAIN OPERATOR CARLOS BIRMINGHAM M.D.Performed By: #### HEPACUTE, HBCAB, HBSAB #### [facility] ,Glucose Poct Glucometerson 81-31-1481Oencmyx [Mass/Vol]184 mg/dLOrlando Health South [facility] Hospital Physician GroupComment on above:Result Comment: Random Glucose Reference Range is dependent on time and content of last meal. Glucose of more than 200 mg/dL in a nonstressed, ambulatory subject supports the diagnosis of Diabetes Mellitus. PERFORMED BY: [place] [address] PATHOLOGIST BULL CHAIN OPERATOR CARLOS BIRMINGHAM M.D.Performed By: #### HEPACUTE, HBCAB, HBSAB #### [facility] ,Pjzrxsu2Shu4: Cleaned MeterOrlando Health South Seminole Hospital Physician GroupComment on above: Result Comment: PERFORMED BY: [place] [address] PATHOLOGIST BULL CHAIN OPERATOR CARLOS BIRMINGHAM M.D.Performed By: #### HEPACUTE, HBCAB, HBSAB #### [facility] ,Glucose [Mass/Vol]209 mg/dLOrlando Health [facility] Hospital Physician GroupComment on above: Result Comment: Random Glucose Reference Range is dependent on time and content of last meal. Glucose of more than 200 mg/dL in a nonstressed, ambulatory subject supports the diagnosis of Diabetes Mellitus.Performed By: #### HEPACUTE, HBCAB, HBSAB #### [facility] ,[id number]: Cleaned MeterOrlando Health [facility] Seminole Hospital Physician GroupComment on above: Result Comment: PERFORMED BY: [place] [address] PATHOLOGIST BULL CHAIN OPERATOR CARLOS BIRMINGHAM M.D.Performed By: #### GLULS #### Point of Care testing ,Glucose [Mass/Vol]212 mg/dLOrlando Health South Seminole Hospital Physician GroupComment on above: Result Comment: Random Glucose Reference Range is dependent on time and content of last meal. Glucose of more than 200 mg/dL in a nonstressed, ambulatory subject supports the diagnosis of Diabetes Mellitus.Performed By: #### GLULS #### Point of Care testing ,Glucose [Mass/Vol]170 mg/dLNoAtrium Health Steele Creek Physician GroupComment on above: Result Comment: Random Glucose Reference Range is dependent on time and content of last meal. Glucose of more than 200 mg/dL in a nonstressed, ambulatory subject supports the diagnosis of Diabetes Mellitus. PERFORMED BY: [place] [address] PATHOLOGIST BULL CHAIN OPERATOR CARLOS BIRMINGHAM M.D.Performed By: #### HEPACUTE, HBCAB, HBSAB #### [facility] ,Glucose Poct Glucometerson 98-40-3102Dyvhgjw [Mass/Vol]302 mg/dLNoAtrium Health Steele Creek Physician GroupComment on above:Result Comment: Random Glucose Reference Range is dependent on time and content of last meal. Glucose of more than 200 mg/dL in a nonstressed, ambulatory subject supports the diagnosis of Diabetes Mellitus. PERFORMED BY: [place] [address] PATHOLOGIST BULL CHAIN OPERATOR CARLOS BIRMINGHAM M.D.Performed By: #### HEPACUTE, HBCAB, HBSAB #### [facility] ,Glucose [Mass/Vol]146 mg/dLNoAtrium Health Steele Creek Physician GroupComment on above: Result Comment: Random Glucose Reference Range is dependent on time and content of last meal. Glucose of more than 200 mg/dL in a nonstressed, ambulatory subject supports the diagnosis of Diabetes Mellitus. PERFORMED BY: [place] [address] PATHOLOGIST BULL CHAIN OPERATOR CARLOS BIRMINGHAM M.D.Performed By: #### GLULS #### Point of Care testing ,Glucose [Mass/Vol]250 mg/dLNoAtrium Health Steele Creek Physician GroupComment on above: Result Comment: Random Glucose Reference Range is dependent on time and content of last meal. Glucose of more than 200 mg/dL in a nonstressed, ambulatory subject supports the diagnosis of Diabetes Mellitus. PERFORMED BY: [place] [id number] PATHOLOGIST BULL CHAIN OPERATOR CARLOS BIRMINGHAM M.D.Performed By: #### GLULS #### Point of Care testing ,Glucose [Mass/Vol]126 mg/dLNormalThe [facility] Physician GroupComment on above: Result Comment: Random Glucose Reference Range is dependent on time and content of last meal. Glucose of more than 200 mg/dL in a nonstressed, ambulatory subject supports the diagnosis of Diabetes Mellitus. PERFORMED BY: [place] [address] PATHOLOGIST BULL CHAIN OPERATOR CARLOS BIRMINGHAM M.D.Performed By: #### GLULS #### Point of Care testing ,Renal Function Panelon [id number] [Mass/Vol]3.4 g/dLLow3.5-5.7The [facility] Physician GroupComment on above:Performed By: #### RENAL, MG #### [place] [address] USAAnion gap [Moles/Vol]15.3 mmol/LHigh6.0-15.0The [facility] Physician GroupComment on above:Performed By: #### RENAL, MG #### [place] [address] USACalcium [Mass/Vol]9.4 mg/dLNormal8.6-10.3The [facility] Physician GroupComment on above:Performed By: #### RENAL, MG #### [place] [address] USAChloride [Moles/Vol]95 mmol/VAwp02-076Zuu [facility] Physician GroupComment on above:Performed By: #### RENAL, MG #### [place] [address] USACO2 [Moles/Vol]27.6 mmol/HVzreyh31.0-31.0The [facility] Physician GroupComment on above:Performed By: #### RENAL, MG #### [place] [address] USACreatinine [Mass/Vol]5.49 mg/dLHigh0.70-1.30The [facility] Physician GroupComment on above:Performed By: #### RENAL, MG #### [place] [address] USACreatinine Clr Calc Bggjbwxw29.47NormalThe [facility] Physician GroupComment on above:Result Comment: PERFORMED BY: [place] [address] PATHOLOGIST BULL CHAIN OPERATOR CARLOS BIRMINGHAM M.D.Performed By: #### RENAL, MG #### [place] [address] USAGFR/1.73 sq M.predicted MDRD (S/P/Bld) [Vol rate/Area] 10.890 mL/min/{1.73_m2}NormalThe [facility] Physician GroupComment on above: Performed By: #### RENAL, MG #### [place] [address] USAGlucose [Mass/Vol]205 mg/rGCkqy81-758Ntv [facility] Physician GroupComment on above:Result Comment: Random Glucose Reference Range is dependent on time and content of last meal. Glucose of more than 200 mg/dL in a nonstressed, ambulatory subject supports the diagnosis of Diabetes Mellitus. ADA recommended reference rangePerformed By: #### RENAL, MG #### [place] [address] USAPhosphate [Mass/Vol]4.8 mg/dLHigh2.5-4.5The [facility] Physician GroupComment on above:Performed By: #### RENAL, MG #### [place] [address] USAPotassium [Moles/Vol]3.9 mmol/LNormal3.5-5.1The [facility] Physician GroupComment on above:Performed By: #### RENAL, MG #### [place] [address] USASodium [Moles/Vol]134 mmol/TEjv811-217Hbb [facility] Physician GroupComment on above:Performed By: #### RENAL, MG #### [place] [address] USAUrea nitrogen [Mass/Vol]42 mg/dLHigh7-25The [facility] Physician GroupComment on above:Performed By: #### RENAL, MG #### [facility] [address] [id number] USAComplete Blood Count Auto Diffon [id number] (Bld) [#/Vol]0.1 10*3/uLNormal0.0-0.2The [facility] Physician GroupComment on above: Result Comment: PERFORMED BY: [facility] [address] [id number] PATHOLOGIST BULL CHAIN OPERATOR CARLOS BIRMINGHAM M.D.Performed By: #### HEPACUTE, HBCAB, HBSAB #### [facility] ,Basophils/100 WBC (Bld)0.8 %Normal.The [facility] Physician GroupComment on above:Performed By: #### HEPACUTE, HBCAB, HBSAB #### [facility] ,Eosinophils (Bld) [#/Vol]0.4 10*3/uLNormal0.0-0.45The [facility] Physician [facility] Comment on above:Performed By: #### HEPACUTE, HBCAB, HBSAB #### [facility] ,Eosinophils/100 WBC (Bld)4.5 %Normal.The [facility] Physician GroupComment on above:Performed By: #### HEPACUTE, HBCAB, HBSAB #### [facility] ,Erythrocyte distribution width (RBC) [Ratio]14.2 %Vwolne56.0-14.8The [facility] Physician GroupComment on above:Performed By: #### HEPACUTE, HBCAB, HBSAB #### [facility] ,Hematocrit (Bld) [Volume fraction]28.1 %Low38.8-50.0The [facility] Physician GroupComment on above:Performed By: #### HEPACUTE, HBCAB, HBSAB #### [facility] ,Hemoglobin (Bld) [Mass/Vol]9.1 g/dLLow13.0-17.0The [facility] Physician [facility] Comment on above:Performed By: #### HEPACUTE, HBCAB, HBSAB #### [facility] ,Lymphocytes (Bld) [#/Vol]1.8 10*3/uLNormal1.00-4.8The [facility]ician Group Comment on above:Performed By: #### HEPACUTE, HBCAB, HBSAB #### [facility] ,Lymphocytes/100 WBC (Bld)19.4 %Normal.The [facility] Physician GroupComment on above:Performed By: #### HEPACUTE, HBCAB, HBSAB #### [facility] ,MCH (RBC) [Entitic mass]28.6 dlAsqfao47.5-35.2The [facility] Group Comment on above:Performed By: #### HEPACUTE, HBCAB, HBSAB #### [facility] ,MCV (RBC) [Entitic vol]88.5 gWCotmvb71.5-101The [facility] Group Comment on above:Performed By: #### HEPACUTE, HBCAB, HBSAB #### [facility] ,Mean Corpuscular HGB Conc32.3 g/dLLow32.5-35.6The [facility] Comment on above:Performed By: #### HEPACUTE, HBCAB, HBSAB #### [facility] ,Monocytes (Bld) [#/Vol]1.4 10*3/uLHigh0.0-0.8The [facility] Comment on above:Performed By: #### HEPACUTE, HBCAB, HBSAB #### [facility] ,Monocytes/100 WBC (Bld)15.2 %Normal.The [facility] Physician GroupComment on above:Performed By: #### HEPACUTE, HBCAB, HBSAB #### [facility] ,Neutrophils (Bld) [#/Vol]5.5 10*3/uLNormal1.8-7.7The [facility] Comment on above:Performed By: #### HEPACUTE, HBCAB, HBSAB #### [facility] ,Neutrophils/100 WBC (Bld)60.1 %Normal.The [facility] Physician GroupComment on above:Performed By: #### HEPACUTE, HBCAB, HBSAB #### [facility] ,NRBC%0.1 /100{WBC}Normal0-0.5The [facility] Physician GroupComment on above: Performed By: #### HEPACUTE, HBCAB, HBSAB #### [facility] ,Platelet mean volume (Bld) [Entitic vol]6.4 fLLow6.6-10.1The [facility] Physician GroupComment on above:Performed By: #### HEPACUTE, HBCAB, HBSAB #### [facility] ,Platelets (Bld) [#/Vol]246 10*3/bKLxjira584-880Stm [facility] Comment on above:Performed By: #### HEPACUTE, HBCAB, HBSAB #### [facility] ,RBC (Bld) [#/Vol]3.18 10*6/uLLow3.90-5.60The [facility] Physician GroupComment on above:Performed By: #### HEPACUTE, HBCAB, HBSAB #### [facility] ,WBC (Bld) [#/Vol]9.2 10*3/uLNormal4.1-10.5The [facility] Physician GroupComment on above:Performed By: #### HEPACUTE, HBCAB, HBSAB #### [facility] ,White Blood Count9.2 [CFU]/mLNormal4.1-10.5The [facility] Physician GroupComment on above:Performed By: #### HEPACUTE, HBCAB, HBSAB #### [facility] ,Comprehensive Metabolic Panelon 08-07-2903Kuxwgjz [Mass/Vol]3.1 g/dLLow3.5-5.7 The [facility] Physician GroupComment on above:Performed By: #### HEPACUTE, HBCAB, HBSAB #### [facility] ,Albumin/Globulin [Mass ratio]1.0 {ratio}NormalThe [facility] Comment on above:Performed By: #### HEPACUTE, HBCAB, HBSAB #### [facility] ,ALP [Catalytic activity/Vol]59 U/JArgxsu92-801Ske [facility] Comment on above:Performed By: #### HEPACUTE, HBCAB, HBSAB #### [facility] ,ALT [Catalytic activity/Vol]3 U/LLow7-52The [facility] Physician GroupComment on above:Performed By: #### HEPACUTE, HBCAB, HBSAB #### [facility] ,Anion gap [Moles/Vol]12.1 mmol/LNormal6.0-15.0The [facility] Comment on above:Performed By: #### HEPACUTE, HBCAB, HBSAB #### [facility] ,AST [Catalytic activity/Vol]21 U/PBshfcg68-05Aqu [facility] Comment on above:Performed By: #### HEPACUTE, HBCAB, HBSAB #### [facility] ,Bilirubin [Mass/Vol]0.7 mg/dLNormal0.3-1.0The [facility] Physician GroupComment on above:Performed By: #### HEPACUTE, HBCAB, HBSAB #### [facility] ,Calcium [Mass/Vol]8.9 mg/dLNormal8.6-10.3The [facility] Physician GroupComment on above:Performed By: #### HEPACUTE, HBCAB, HBSAB #### [facility] ,Chloride [Moles/Vol]99 mmol/URkjnjz39-634Cpv [facility] Physician GroupComment on above:Performed By: #### HEPACUTE, HBCAB, HBSAB #### [facility] ,CO2 [Moles/Vol]27.7 mmol/MOszsew89.0-31.0The [facility] Physician GroupComment on above:Performed By: #### HEPACUTE, HBCAB, HBSAB #### [facility] ,Creatinine [Mass/Vol]4.23 mg/dLHigh0.70-1.30The [facility] Physician [facility] Comment on above:Performed By: #### HEPACUTE, HBCAB, HBSAB #### [facility] ,Creatinine Clr Calc Uparzcil08.76NoAtrium Health [facility] Physician GroupComment on above:Performed By: #### HEPACUTE, HBCAB, HBSAB #### [facility] ,GFR/1.73 sq M.predicted MDRD (S/P/Bld) [Vol rate/Area]14.891 mL/min/{1.73_m2} NormalThe [facility] Physician GroupComment on above:Performed By: #### HEPACUTE, HBCAB, HBSAB #### [facility] ,Globulin (S) [Mass/Vol]3.1 g/dLNoAt[facility] Physician GroupComment on above:Performed By: #### HEPACUTE, HBCAB, HBSAB #### [facility] ,Glucose [Mass/Vol]143 mg/pLFkmg88-017Aat [facility] Physician GroupComment on above:Result Comment: Random Glucose Reference Range is dependent on time and content of last meal. Glucose of more than 200 mg/dL in a nonstressed, ambulatory subject supports the diagnosis of Diabetes Mellitus. ADA recommended reference rangePerformed By: #### HEPACUTE, HBCAB, HBSAB #### [facility] ,Potassium [Moles/Vol]3.8 mmol/LNormal3.5-5.1The [facility] Comment on above:Performed By: #### HEPACUTE, HBCAB, HBSAB #### [facility] ,Protein [Mass/Vol]6.2 g/dLLow6.4-8.9The [facility] Physician GroupComment on above:Performed By: #### HEPACUTE, HBCAB, HBSAB #### [facility] ,Sodium [Moles/Vol]135 mmol/DUis777-760Vvc [facility] Physician GroupComment on above:Performed By: #### HEPACUTE, HBCAB, HBSAB #### [facility] ,Urea nitrogen [Mass/Vol]33 mg/dLJon Michael Moore Trauma CenterWeiser Memorial Hospital Physician GroupComment on above:Performed By: #### HEPACUTE, HBCAB, HBSAB #### [facility] ,Glucose Poct Glucometerson 32-95-9858Ocazyfo [Mass/Vol]272 mg/dLNoAtrium Health [facility] Creek Physician GroupComment on above:Result Comment: Random Glucose Reference Range is dependent on time and content of last meal. Glucose of more than 200 mg/dL in a nonstressed, ambulatory subject supports the diagnosis of Diabetes Mellitus. PERFORMED BY: [place] [address] PATHOLOGIST BULL CHAIN OPERATOR CARLOS BIRMINGHAM M.D.Performed By: #### GLULS #### Point of Care testing ,Glucose [Mass/Vol]262 mg/dLOrlando Health [facility] Physician [facility] GulfportComment on above: Result Comment: Random Glucose Reference Range is dependent on time and content of last meal. Glucose of more than 200 mg/dL in a nonstressed, ambulatory subject supports the diagnosis of Diabetes Mellitus. PERFORMED BY: [place] [address] PATHOLOGIST BULL CHAIN OPERATOR CARLOS BIRMINGHAM M.D.Performed By: #### RENAL, MG #### [place] [address] USAGlucose [Mass/Vol]195 mg/dLOrlando Health South [facility]in[facility] Hospital Physician GroupComment on above:Result Comment: Random Glucose Reference Range is dependent on time and content of last meal. Glucose of more than 200 mg/dL in a nonstressed, ambulatory subject supports the diagnosis of Diabetes Mellitus. PERFORMED BY: [place] [address] PATHOLOGIST BULL CHAIN OPERATOR CARLOS BIRMINGHAM M.D.Performed By: #### RENAL, MG #### [place] [address] USAGlucose [Mass/Vol]170 mg/dLNoAtrium Health [facility] Creek Physician GroupComment on above:Result Comment: Random Glucose Reference Range is dependent on time and content of last meal. Glucose of more than 200 mg/dL in a nonstressed, ambulatory subject supports the diagnosis of Diabetes Mellitus. PERFORMED BY: [place] [address] [place] [address] PATHOLOGIST BULL CHAIN OPERATOR CARLOS BIRMINGHAM M.D.Performed By: #### GLULS #### Point of Care testing ,Prealbuminon 52-92-5404Vsrzytmrwa [Mass/Vol]16.6 mg/dLLow17.0-34.0The [facility] Physician GroupComment on above:Result Comment: PERFORMED BY: [facility] [address] [place] [address] PATHOLOGIST BULL CHAIN OPERATOR CARLOS BIRMINGHAM M.D.Performed By: #### HEPACUTE, HBCAB, HBSAB #### [facility] ,Comprehensive Metabolic Panelon [id number] [Mass/Vol]3.1 g/dLLow3.5-5.7 The [facility] Physician GroupComment on above:Performed By: #### HEPACUTE, HBCAB, HBSAB #### [facility] ,Albumin/Globulin [Mass ratio]0.9 {ratio}NormalThe [facility] Comment on above:Performed By: #### HEPACUTE, HBCAB, HBSAB #### [facility] ,ALP [Catalytic activity/Vol]68 U/UZdotbw67-464Hgu [facility] Comment on above:Performed By: #### HEPACUTE, HBCAB, HBSAB #### [facility] ,ALT [Catalytic activity/Vol]U/LLow7-52The [facility] Physician GroupComment on above:Performed By: #### HEPACUTE, HBCAB, HBSAB #### [facility] ,Anion gap [Moles/Vol]15.4 mmol/LHigh6.0-15.0The [facility] Comment on above:Performed By: #### HEPACUTE, HBCAB, HBSAB #### [facility] ,AST [Catalytic activity/Vol]22 U/HIcypxx65-32Yfz [facility] Comment on above:Performed By: #### HEPACUTE, HBCAB, HBSAB #### [facility] ,Bilirubin [Mass/Vol]0.5 mg/dLNormal0.3-1.0[facility] Physician GroupComment on above:Performed By: #### HEPACUTE, HBCAB, HBSAB #### [facility] ,Calcium [Mass/Vol]8.9 mg/dLNormal8.6-10.3The [facility] Physician GroupComment on above:Performed By: #### HEPACUTE, HBCAB, HBSAB #### [facility] ,Chloride [Moles/Vol]98 mmol/HMqmxkr64-585Pnq [facility] Physician GroupComment on above:Performed By: #### HEPACUTE, HBCAB, HBSAB #### [facility] ,CO2 [Moles/Vol]25.5 mmol/PEcdspi19.0-31.0The [facility] Physician GroupComment on above:Performed By: #### HEPACUTE, HBCAB, HBSAB #### [facility] ,Creatinine [Mass/Vol]6.08 mg/dLHigh0.70-1.30The [facility] Physician [facility] Comment on above:Performed By: #### HEPACUTE, HBCAB, HBSAB #### [facility] ,Creatinine Clr Calc Eqjeqreu35.59NoAt[facility] Physician GroupComment on above:Performed By: #### HEPACUTE, HBCAB, HBSAB #### [facility] ,GFR/1.73 sq M.predicted MDRD (S/P/Bld) [Vol rate/Area]9.635 mL/min/{1.73_m2} NormalAdventhealth Wauchula Physician GroupComment on above:Performed By: #### HEPACUTE, HBCAB, HBSAB #### [facility] ,Globulin (S) [Mass/Vol]3.5 g/dLNoAt[facility] Physician GroupComment on above:Performed By: #### HEPACUTE, HBCAB, HBSAB #### [facility] ,Glucose [Mass/Vol]108 mg/lGYhbh99-104Uzo [facility] Physician GroupComment on above:Result Comment: Random Glucose Reference Range is dependent on time and content of last meal. Glucose of more than 200 mg/dL in a nonstressed, ambulatory subject supports the diagnosis of Diabetes Mellitus. ADA recommended reference rangePerformed By: #### HEPACUTE, HBCAB, HBSAB #### [facility] ,Potassium [Moles/Vol]3.9 mmol/LNormal3.5-5.1The [facility] Physician [facility] Comment on above:Performed By: #### HEPACUTE, HBCAB, HBSAB #### [facility] ,Protein [Mass/Vol]6.6 g/dLNormal6.4-8.9The [facility] Physician GroupComment on above:Performed By: #### HEPACUTE, HBCAB, HBSAB #### [facility] ,Sodium [Moles/Vol]135 mmol/KMsg755-701Oxh [facility] Physician GroupComment on above:Performed By: #### HEPACUTE, HBCAB, HBSAB #### [facility] ,Urea nitrogen [Mass/Vol]54 mg/dLHigh7-25The [facility] Physician GroupComment on above:Performed By: #### HEPACUTE, HBCAB, HBSAB #### [facility] ,Diff and CBCon 38-20-9518Uktfomiaapmf Ql (Bld)ModerateNormalThe [facility] Physician GroupComment on above:Performed By: #### HEPACUTE, HBCAB, HBSAB #### [facility] ,Band form neutrophils/100 WBC (Bld)1 %Normal0-5The [facility] Comment on above:Performed By: #### HEPACUTE, HBCAB, HBSAB #### [facility] ,Eosinophils/100 WBC (Bld)8 %High1-3The [facility] Physician GroupComment on above:Performed By: #### HEPACUTE, HBCAB, HBSAB #### [facility] ,Erythrocyte distribution width (RBC) [Ratio]14.1 %Egxvnk36.0-14.8The [facility] Physician GroupComment on above:Performed By: #### HEPACUTE, HBCAB, HBSAB #### [facility] ,Hematocrit (Bld) [Volume fraction]29.7 %Low38.8-50.0The [facility] Physician GroupComment on above:Performed By: #### HEPACUTE, HBCAB, HBSAB #### [facility] ,Hemoglobin (Bld) [Mass/Vol]9.9 g/dLLow13.0-17.0The [facility] Comment on above:Performed By: #### HEPACUTE, HBCAB, HBSAB #### [facility] ,HypochromasiaSlightNormalThe [facility] Physician GroupComment on above: Performed By: #### HEPACUTE, HBCAB, HBSAB #### [facility] ,Lymphocytes/100 WBC (Bld)10 %Tvp28-93Yhq [facility] Physician GroupComment on above:Performed By: #### HEPACUTE, HBCAB, HBSAB #### [facility] ,MCH (RBC) [Entitic mass]29.1 aoYrrygb09.5-35.2The [facility] Comment on above:Performed By: #### HEPACUTE, HBCAB, HBSAB #### [facility] ,MCV (RBC) [Entitic vol]87.6 bZYxstpr54.5-101The [facility] Comment on above:Performed By: #### HEPACUTE, HBCAB, HBSAB #### [facility] ,Mean Corpuscular HGB Conc33.3 g/bYXxtgch08.5-35.6The [facility] Comment on above:Performed By: #### HEPACUTE, HBCAB, HBSAB #### [facility] ,Metamyelocytes3 %High0-0The [facility] Physician GroupComment on above:Performed By: #### HEPACUTE, HBCAB, HBSAB #### [facility] ,MicrocytosisSNovant Health Clemmons Medical Center Physician GroupComment on above:Performed By: #### HEPACUTE, HBCAB, HBSAB #### [facility] ,Monocytes/100 WBC (Bld)7 %Normal2-11The [facility] Physician GroupComment on above:Performed By: #### HEPACUTE, HBCAB, HBSAB #### [facility] ,Platelet EstimateNormalNormalOrlando [facility] Physician GroupComment on above:Performed By: #### HEPACUTE, HBCAB, HBSAB #### [facility] ,Platelet mean volume (Bld) [Entitic vol]6.7 fLNormal6.6-10.1The [facility] Physician GroupComment on above:Performed By: #### HEPACUTE, HBCAB, HBSAB #### [facility] ,Platelet MorphologyNormalNormalOrlando [facility] Physician GroupComment on above:Result Comment: PERFORMED BY: [address] [place] [address] PATHOLOGIST BULL CHAIN OPERATOR CARLOS BIRMINGHAM M.D.Performed By: #### HEPACUTE, HBCAB, HBSAB #### [facility] ,Platelets (Bld) [#/Vol]237 10*3/gLXksyue546-515Fdk [facility] Comment on above:Performed By: #### HEPACUTE, HBCAB, HBSAB #### [facility] ,PoikilocytosisSNovant Health Clemmons Medical Center Physician GroupComment on above: Performed By: #### HEPACUTE, HBCAB, HBSAB #### [facility] ,PolychromasiaSNovant Health Clemmons Medical Center Physician GroupComment on above: Performed By: #### HEPACUTE, HBCAB, HBSAB #### [facility] ,RBC (Bld) [#/Vol]3.39 10*6/uLLow3.90-5.60The [facility] Physician [facility]portComment on above:Performed By: #### HEPACUTE, HBCAB, HBSAB #### [facility] ,Segmented neutrophils/100 WBC (Bld)72 %Zkbh40-39DvtAdventhealth Wauchula Physician [facility] Comment on above:Performed By: #### HEPACUTE, HBCAB, HBSAB #### [facility] ,WBC (Bld) [#/Vol]10.1 10*3/uLNormal4.1-10.5The [facility] Physician [facility]portComment on above:Performed By: #### HEPACUTE, HBCAB, HBSAB #### [facility] ,White Blood Count10.1 [CFU]/mLNormal4.1-10.5The [facility] Physician [facility] Comment on above:Performed By: #### HEPACUTE, HBCAB, HBSAB #### [facility] ,Glucose Poct Glucometerson 16-25-8464Msghzru [Mass/Vol]187 mg/dLNoAtrium Health [facility] Physician [facility]portComment on above:Result Comment: Random Glucose Reference Range is dependent on time and content of last meal. Glucose of more than 200 mg/dL in a nonstressed, ambulatory subject supports the diagnosis of Diabetes Mellitus. PERFORMED BY: [place] [address] PATHOLOGIST BULL CHAIN OPERATOR CARLOS BIRMINGHAM M.D.Performed By: #### GLULS #### Point of Care testing ,Glucose [Mass/Vol]269 mg/dLOrlando Health [facility] Physician [facility] GulfportComment on above: Result Comment: Random Glucose Reference Range is dependent on time and content of last meal. Glucose of more than 200 mg/dL in a nonstressed, ambulatory subject supports the diagnosis of Diabetes Mellitus. PERFORMED BY: [place] [address] PATHOLOGIST BULL CHAIN OPERATOR CARLOS BIRMINGHAM M.D.Performed By: #### RENAL, MG #### [place] [address] XEZRkegfoe6Lyv8: Cleaned MeterNoAtrium Health Steele Creek Physician GroupComment on above:Result Comment: PERFORMED BY: [address] [place] [address] PATHOLOGIST BULL CHAIN OPERATOR CARLOS BIRMINGHAM M.D.Performed By: #### GLULS #### Point of Care testing ,Glucose [Mass/Vol]109 mg/dLOrlando Health South Seminole Hospital Physician GroupComment on above: Result Comment: Random Glucose Reference Range is dependent on time and content of last meal. Glucose of more than 200 mg/dL in a nonstressed, ambulatory subject supports the diagnosis of Diabetes Mellitus.Performed By: #### GLULS #### Point of Care testing ,Glucose [Mass/Vol]109 mg/dLOrlando Health South Seminole Hospital Physician GroupComment on above: Result Comment: Random Glucose Reference Range is dependent on time and content of last meal. Glucose of more than 200 mg/dL in a nonstressed, ambulatory subject supports the diagnosis of Diabetes Mellitus. PERFORMED BY: [place] [address] PATHOLOGIST BULL CHAIN OPERATOR CARLOS BIRMINGHAM M.D.Performed By: #### GLULS #### Point of Care testing ,Magnesiumon 81-04-8321Furidgwax [Mass/Vol]2.6 mg/dLNormal1.9-2.7The [facility] Physician GroupComment on above:Result Comment: PERFORMED BY: [address] [place] [address] PATHOLOGIST BULL CHAIN OPERATOR CARLOS BIRMINGHAM M.D.Performed By: #### HEPACUTE, HBCAB, HBSAB #### [facility] ,A1C with Estimated Average Gluon 85-98-4590Dwxoyot [Mass/Vol]255 mg/dLOrlando Health South Seminole Hospital Physician GroupComment on above:Result Comment: PERFORMED BY: [address] [place] [address] PATHOLOGIST BULL CHAIN OPERATOR CARLOS BIRMINGHAM M.D.Performed By: #### HEPACUTE, HBCAB, HBSAB #### [facility] ,HbA1c (Bld) [Mass fraction]10.5 %High4.3-5.6The [facility] Comment on above:Result Comment: Increased risk for diabetes: 5.7 - 6.4 diabetes: >6.4 glycemic control for adults with diabetes: <7.0Performed By: #### HEPACUTE, HBCAB, HBSAB #### [facility] ,Comprehensive Metabolic Panelon 11-19-5646Psafroy [Mass/Vol]3.1 g/dLLow3.5-5.7 The [facility] Physician GroupComment on above:Performed By: #### HEPACUTE, HBCAB, HBSAB #### [facility] ,Albumin/Globulin [Mass ratio]0.9 {ratio}NormalThe [facility] Comment on above:Performed By: #### HEPACUTE, HBCAB, HBSAB #### [facility] ,ALP [Catalytic activity/Vol]69 U/ORmnxsj10-115Ytd [facility] Comment on above:Performed By: #### HEPACUTE, HBCAB, HBSAB #### [facility] ,ALT [Catalytic activity/Vol]3 U/LLow7-52The [facility] Physician GroupComment on above:Performed By: #### HEPACUTE, HBCAB, HBSAB #### [facility] ,Anion gap [Moles/Vol]12.2 mmol/LNormal6.0-15.0The [facility] Comment on above:Performed By: #### HEPACUTE, HBCAB, HBSAB #### [facility] ,AST [Catalytic activity/Vol]21 U/FGlcqyk61-92Uwa [facility] Comment on above:Performed By: #### HEPACUTE, HBCAB, HBSAB #### [facility] ,Bilirubin [Mass/Vol]0.6 mg/dLNormal0.3-1.0The [facility] Physician GroupComment on above:Performed By: #### HEPACUTE, HBCAB, HBSAB #### [facility] ,Calcium [Mass/Vol]8.9 mg/dLNormal8.6-10.3The [facility] Physician GroupComment on above:Performed By: #### HEPACUTE, HBCAB, HBSAB #### [facility] ,Chloride [Moles/Vol]95 mmol/SOap57-708Bda [facility] Physician GroupComment on above:Performed By: #### HEPACUTE, HBCAB, HBSAB #### [facility] ,CO2 [Moles/Vol]30.5 mmol/NCuosza59.0-31.0The [facility] Physician GroupComment on above:Performed By: #### HEPACUTE, HBCAB, HBSAB #### [facility] ,Creatinine [Mass/Vol]5.57 mg/dLHigh0.70-1.30[facility] Comment on above:Performed By: #### HEPACUTE, HBCAB, HBSAB #### [facility] ,Creatinine Clr Calc Gmuzoivn54.11NoAt[facility] Health [facility] Physician GroupComment on above:Performed By: #### HEPACUTE, HBCAB, HBSAB #### [facility] ,GFR/1.73 sq M.predicted MDRD (S/P/Bld) [Vol rate/Area]10.703 mL/min/{1.73_m2} NormalThe [facility] Physician GroupComment on above:Performed By: #### HEPACUTE, HBCAB, HBSAB #### [facility] ,Globulin (S) [Mass/Vol]3.5 g/dLOrlando [facility] Physician [facility] GulfportComment on above:Performed By: #### HEPACUTE, HBCAB, HBSAB #### [facility] ,Glucose [Mass/Vol]175 mg/xRAljw49-940Tts [facility] Physician GroupComment on above:Result Comment: Random Glucose Reference Range is dependent on time and content of last meal. Glucose of more than 200 mg/dL in a nonstressed, ambulatory subject supports the diagnosis of Diabetes Mellitus. ADA recommended reference rangePerformed By: #### HEPACUTE, HBCAB, HBSAB #### [facility] ,Potassium [Moles/Vol]3.7 mmol/LNormal3.5-5.1The [facility] Comment on above:Performed By: #### HEPACUTE, HBCAB, HBSAB #### [facility] ,Protein [Mass/Vol]6.6 g/dLNormal6.4-8.9The [facility] Physician GroupComment on above:Performed By: #### HEPACUTE, HBCAB, HBSAB #### [facility] ,Sodium [Moles/Vol]134 mmol/GVzy503-192Frh [facility] Physician GroupComment on above:Performed By: #### HEPACUTE, HBCAB, HBSAB #### [facility] ,Urea nitrogen [Mass/Vol]46 mg/dLHigh7-25The [facility] Physician GroupComment on above:Performed By: #### HEPACUTE, HBCAB, HBSAB #### [facility] ,Diff and CBCon 96-19-3727Vfpdbswljala Ql (Bld)SlightNormalThe [facility] Physician GroupComment on above:Performed By: #### HEPACUTE, HBCAB, HBSAB #### [facility] ,Eosinophils/100 WBC (Bld)7 %High1-3The [facility] Physician GroupComment on above:Performed By: #### HEPACUTE, HBCAB, HBSAB #### [facility] ,Erythrocyte distribution width (RBC) [Ratio]14.7 %Vqeumc83.0-14.8The [facility] Physician GroupComment on above:Performed By: #### HEPACUTE, HBCAB, HBSAB #### [facility] ,Hematocrit (Bld) [Volume fraction]28.5 %Low38.8-50.0The [facility] Physician GroupComment on above:Performed By: #### HEPACUTE, HBCAB, HBSAB #### [facility] ,Hemoglobin (Bld) [Mass/Vol]9.4 g/dLLow13.0-17.0The [facility] Physician [facility] Comment on above:Performed By: #### HEPACUTE, HBCAB, HBSAB #### [facility] ,HypochromasiaSlightOrlando Health South Seminole Hospital Physician GroupComment on above: Performed By: #### HEPACUTE, HBCAB, HBSAB #### [facility] ,Lymphocytes/100 WBC (Bld)15 %Wgw28-88Wzd [facility] Physician GroupComment on above:Performed By: #### HEPACUTE, HBCAB, HBSAB #### [facility] ,MCH (RBC) [Entitic mass]29.1 mtBqvmzj96.5-35.2The [facility] Physician [facility] Comment on above:Performed By: #### HEPACUTE, HBCAB, HBSAB #### [facility] ,MCV (RBC) [Entitic vol]88.5 zDZqezmg31.5-101The [facility] Physician [facility] Comment on above:Performed By: #### HEPACUTE, HBCAB, HBSAB #### [facility] ,Mean Corpuscular HGB Conc32.8 g/yOPlgdla77.5-35.6ThWe[facility] Physician [facility] Comment on above:Performed By: #### HEPACUTE, HBCAB, HBSAB #### [facility] ,MicrocytosisSNovant Health Clemmons Medical Center Physician GroupComment on above:Performed By: #### HEPACUTE, HBCAB, HBSAB #### [facility] ,Monocytes/100 WBC (Bld)13 %High2-11The [facility] Physician GroupComment on above:Performed By: #### HEPACUTE, HBCAB, HBSAB #### [facility] ,Myelocytes2 %High0-0The [facility] Physician GroupComment on above:Performed By: #### HEPACUTE, HBCAB, HBSAB #### [facility] ,Platelet EstimateNormalNormalOrlando Health [facility] Semin[facility] Physician GroupComment on above:Performed By: #### HEPACUTE, HBCAB, HBSAB #### [facility] ,Platelet mean volume (Bld) [Entitic vol]7.1 fLNormal6.6-10.1The [facility] Physician GroupComment on above:Performed By: #### HEPACUTE, HBCAB, HBSAB #### [facility] ,Platelet MorphologyNormalNormalOrlando Health [facility] Semin[facility] Hospital Physician GroupComment on above:Result Comment: PERFORMED BY: [facility] Raheem MAGAÑ[place] [address] PATHOLOGIST BULL CHAIN OPERATOR CARLOS BIRMINGHAM M.D.Performed By: #### HEPACUTE, HBCAB, HBSAB #### [facility] ,Platelets (Bld) [#/Vol]240 10*3/eJMjesxr915-055Vtb [facility] Comment on above:Performed By: #### HEPACUTE, HBCAB, HBSAB #### [facility] ,PolychromasiaSlightOrlando Health South Seminole Hospital Physician GroupComment on above: Performed By: #### HEPACUTE, HBCAB, HBSAB #### [facility] ,RBC (Bld) [#/Vol]3.22 10*6/uLLow3.90-5.60The [facility] Physician GroupComment on above:Performed By: #### HEPACUTE, HBCAB, HBSAB #### [facility] ,Segmented neutrophils/100 WBC (Bld)63 %Gbfdjl90-39Wyq [facility] Comment on above:Performed By: #### HEPACUTE, HBCAB, HBSAB #### [facility] ,WBC (Bld) [#/Vol]9.9 10*3/uLNormal4.1-10.5The [facility] Physician GroupComment on above:Performed By: #### HEPACUTE, HBCAB, HBSAB #### [facility] ,White Blood Count9.9 [CFU]/mLNormal4.1-10.5The [facility] Physician GroupComment on above:Performed By: #### HEPACUTE, HBCAB, HBSAB #### [facility] ,Glucose Poct Glucometerson 62-41-9325Lkyhkeg [Mass/Vol]218 mg/dLNoAtrium Health Steele Creek Physician GroupComment on above:Result Comment: Random Glucose Reference Range is dependent on time and content of last meal. Glucose of more than 200 mg/dL in a nonstressed, ambulatory subject supports the diagnosis of Diabetes Mellitus. PERFORMED BY: [place] [address] PATHOLOGIST BULL CHAIN OPERATOR CARLOS BIRMINGHAM M.D.Performed By: #### HEPACUTE, HBCAB, HBSAB #### [facility] ,Glucose [Mass/Vol]116 mg/dLNoAtrium Health [facility] Physician GroupComment on above: Result Comment: Random Glucose Reference Range is dependent on time and content of last meal. Glucose of more than 200 mg/dL in a nonstressed, ambulatory subject supports the diagnosis of Diabetes Mellitus. PERFORMED BY: [place] [address] PATHOLOGIST BULL CHAIN OPERATOR CARLOS BIRMINGHAM M.D.Performed By: #### RENAL, MG #### [address]Glucose [Mass/Vol]172 mg/dLNoAtrium Health Steele Creek Physician GroupComment on above:Result Comment: Random Glucose Reference Range is dependent on time and content of last meal. Glucose of more than 200 mg/dL in a nonstressed, ambulatory subject supports the diagnosis of Diabetes Mellitus. PERFORMED BY: [place] [address] PATHOLOGIST BULL CHAIN OPERATOR CARLOS BIRMINGHAM M.D.Performed By: #### HEPACUTE, HBCAB, HBSAB #### [facility] ,Glucose [Mass/Vol]142 mg/dLNoAtrium Health [facility] Physician GroupComment on above: Result Comment: Random Glucose Reference Range is dependent on time and content of last meal. Glucose of more than 200 mg/dL in a nonstressed, ambulatory subject supports the diagnosis of Diabetes Mellitus. PERFORMED BY: [address] [place] [address] PATHOLOGIST BULL CHAIN OPERATOR CARLOS BIRMINGHAM M.D.Performed By: #### GLULS #### Point of Care testing ,Magnesiumon 04-33-8796Gbkofdqpi [Mass/Vol]2.3 mg/dLNormal1.9-2.7The [facility] Physician GroupComment on above:Result Comment: PERFORMED BY: [facility] [address] [place] [address] PATHOLOGIST BULL CHAIN OPERATOR CARLOS BIRMINGHAM M.D.Performed By: #### HEPACUTE, HBCAB, HBSAB #### [facility] ,Complete Blood Count Auto Diffon 32-89-7854Ykomrbial (Bld) [#/Vol]0.1 10*3/uL Normal0.0-0.2The [facility] Physician GroupComment on above:Result Comment: PERFORMED BY: [facility] [address] [place] [address] PATHOLOGIST BULL CHAIN OPERATOR CARLOS BIRMINGHAM M.D.Performed By: #### GLULS #### Point of Care testing ,Basophils/100 WBC (Bld)0.9 %Normal.The [facility] Physician GroupComment on above:Performed By: #### GLULS #### Point of Care testing ,Eosinophils (Bld) [#/Vol]0.5 10*3/uLHigh0.0-0.45The [facility] Comment on above:Performed By: #### GLULS #### Point of Care testing ,Eosinophils/100 WBC (Bld)6.1 %Normal.The [facility] Physician GroupComment on above:Performed By: #### GLULS #### Point of Care testing ,Erythrocyte distribution width (RBC) [Ratio]14.7 %Ctrwxk83.0-14.8The [facility] Physician GroupComment on above:Performed By: #### GLULS #### Point of Care testing ,Hematocrit (Bld) [Volume fraction]25.9 %Low38.8-50.0The [facility] Physician GroupComment on above:Performed By: #### GLULS #### Point of Care testing ,Hemoglobin (Bld) [Mass/Vol]8.7 g/dLLow13.0-17.0The [facility] Comment on above:Performed By: #### GLULS #### Point of Care testing ,Lymphocytes (Bld) [#/Vol]1.2 10*3/uLNormal1.00-4.8The [facility] Comment on above:Performed By: #### GLULS #### Point of Care testing ,Lymphocytes/100 WBC (Bld)13.2 %Normal.The [facility] Physician GroupComment on above:Performed By: #### GLULS #### Point of Care testing ,MCH (RBC) [Entitic mass]29.5 siAwcskb75.5-35.2The [facility] Comment on above:Performed By: #### GLULS #### Point of Care testing ,MCV (RBC) [Entitic vol]87.7 oGSpbkwk53.5-101The [facility] Comment on above:Performed By: #### GLULS #### Point of Care testing ,Mean Corpuscular HGB Conc33.6 g/rLUumlel28.5-35.6The [facility] Comment on above:Performed By: #### GLULS #### Point of Care testing ,Monocytes (Bld) [#/Vol]1.0 10*3/uLHigh0.0-0.8The [facility] Comment on above:Performed By: #### GLULS #### Point of Care testing ,Monocytes/100 WBC (Bld)11.6 %Normal.The [facility] Physician GroupComment on above:Performed By: #### GLULS #### Point of Care testing ,Neutrophils (Bld) [#/Vol]6.0 10*3/uLNormal1.8-7.7The [facility] Comment on above:Performed By: #### GLULS #### Point of Care testing ,Neutrophils/100 WBC (Bld)68.2 %Normal.The [facility] Physician GroupComment on above:Performed By: #### GLULS #### Point of Care testing ,NRBC%0.0 /100{WBC}Normal0-0.5The [facility] Physician GroupComment on above: Performed By: #### GLULS #### Point of Care testing ,Platelet mean volume (Bld) [Entitic vol]8.2 fLNormal6.6-10.1[facility] Physician GroupComment on above:Performed By: #### GLULS #### Point of Care testing ,Platelets (Bld) [#/Vol]150 10*3/qKXmcrmpjk664-923Tyv [facility] Comment on above:Performed By: #### GLULS #### Point of Care testing ,RBC (Bld) [#/Vol]2.96 10*6/uLLow3.90-5.60The [facility] Physician GroupComment on above:Performed By: #### GLULS #### Point of Care testing ,WBC (Bld) [#/Vol]8.7 10*3/uLNormal4.1-10.5The [facility] Physician GroupComment on above:Performed By: #### GLULS #### Point of Care testing ,White Blood Count8.7 [CFU]/mLNormal4.1-10.5The [facility] Physician GroupComment on above:Performed By: #### GLULS #### Point of Care testing ,Comprehensive Metabolic Panelon 59-79-6640Wrlvxdv [Mass/Vol]2.8 g/dLLow3.5-5.7 The [facility] Physician GroupComment on above:Performed By: #### GLULS #### Point of Care testing ,Albumin/Globulin [Mass ratio]0.9 {ratio}NormalThe [facility] Comment on above:Performed By: #### GLULS #### Point of Care testing ,ALP [Catalytic activity/Vol]62 U/POjjklj07-330Hsn [facility] Physician [facility] Comment on above:Performed By: #### GLULS #### Point of Care testing ,ALT [Catalytic activity/Vol]U/LLow7-52The [facility] Physician GroupComment on above:Performed By: #### GLULS #### Point of Care testing ,Anion gap [Moles/Vol]17.2 mmol/LHigh6.0-15.0The [facility] Physician [facility] Comment on above:Performed By: #### GLULS #### Point of Care testing ,AST [Catalytic activity/Vol]20 U/RWjhmye53-38Crf [facility] Comment on above:Performed By: #### GLULS #### Point of Care testing ,Bilirubin [Mass/Vol]0.5 mg/dLNormal0.3-1.0The [facility] Physician GroupComment on above:Performed By: #### GLULS #### Point of Care testing ,Calcium [Mass/Vol]8.4 mg/dLLow8.6-10.3The [facility] Physician GroupComment on above:Performed By: #### GLULS #### Point of Care testing ,Chloride [Moles/Vol]96 mmol/YKdn66-652Pxn [facility] Physician GroupComment on above:Performed By: #### GLULS #### Point of Care testing ,CO2 [Moles/Vol]23.9 mmol/BBuhxgy02.0-31.0The [facility] Physician GroupComment on above:Performed By: #### GLULS #### Point of Care testing ,Creatinine [Mass/Vol]7.26 mg/dLHigh0.70-1.30[facility] Comment on above:Performed By: #### GLULS #### Point of Care testing ,Creatinine Clr Calc Ycbzrpuo03.82NoAt[facility] Physician GroupComment on above:Performed By: #### GLULS #### Point of Care testing ,GFR/1.73 sq M.predicted MDRD (S/P/Bld) [Vol rate/Area]7.787 mL/min/{1.73_m2} NormalAdventhealth Wauchula Physician GroupComment on above:Performed By: #### GLULS #### Point of Care testing ,Globulin (S) [Mass/Vol]3.2 g/dLOrlando Health South Seminole Hospital Physician GroupComment on above:Performed By: #### GLULS #### Point of Care testing ,Glucose [Mass/Vol]220 mg/uQVogp96-646Oct [facility] Physician GroupComment on above:Result Comment: Random Glucose Reference Range is dependent on time and content of last meal. Glucose of more than 200 mg/dL in a nonstressed, ambulatory subject supports the diagnosis of Diabetes Mellitus. ADA recommended reference rangePerformed By: #### GLULS #### Point of Care testing ,Potassium [Moles/Vol]4.1 mmol/LNormal3.5-5.1The [facility] Comment on above:Result Comment: Hemolysis is present at a level that could interfere with the result. Contact lab if redraw is requiredPerformed By: #### GLULS #### Point of Care testing ,Protein [Mass/Vol]6.0 g/dLLow6.4-8.9The [facility] Physician [facility]portComment on above:Performed By: #### GLULS #### Point of Care testing ,Sodium [Moles/Vol]133 mmol/CNqz780-366Abg [facility] Physician GroupComment on above:Performed By: #### GLULS #### Point of Care testing ,Urea nitrogen [Mass/Vol]73 mg/dLHigh7-25The [facility] Physician GroupComment on above:Performed By: #### GLULS #### Point of Care testing ,Glucose Poct Glucometerson 83-62-2284Yorcvek [Mass/Vol]224 mg/dLNoCleveland Clinic FoundationComment on above:Result Comment: Random Glucose Reference Range is dependent on time and content of last meal. Glucose of more than 200 mg/dL in a nonstressed, ambulatory subject supports the diagnosis of Diabetes Mellitus. PERFORMED BY: [address] [place] [address] PATHOLOGIST BULL CHAIN OPERATOR CARLOS BIRMINGHAM M.D.Performed By: #### HEPACUTE, HBCAB, HBSAB #### [facility] ,Glucose [Mass/Vol]204 mg/dLMille Lacs Health System Onamia HospitalComment on above: Result Comment: Random Glucose Reference Range is dependent on time and content of last meal. Glucose of more than 200 mg/dL in a nonstressed, ambulatory subject supports the diagnosis of Diabetes Mellitus. PERFORMED BY: [address] [place] [address] PATHOLOGIST BULL CHAIN OPERATOR CARLOS BIRMINGHAM M.D.Performed By: #### GLULS #### Point of Care testing ,Glucose [Mass/Vol]280 mg/dLOrlando Health South Seminole Hospital Physician GroupComment on above: Result Comment: Random Glucose Reference Range is dependent on time and content of last meal. Glucose of more than 200 mg/dL in a nonstressed, ambulatory subject supports the diagnosis of Diabetes Mellitus. PERFORMED BY: [place] [phone] PATHOLOGIST BULL CHAIN OPERATOR CARLOS BIRMINGHAM M.D.Performed By: #### RENAL #### [place] [address] USAMagnesiumon 89-88-7643Sqpmevgen [Mass/Vol]2.7 mg/dLNormal 1.9-2.7The [facility] Physician GroupComment on above:Result Comment: PERFORMED BY: [place] [phone] PATHOLOGIST BULL CHAIN OPERATOR CARLOS BIRMINGHAM M.D.Performed By: #### GLULS #### Point of Care testing ,Glucose Poct Glucometerson 02-65-7155Byaykyh6Xbe1: Cleaned [facility] Physician [facility] GulfportComment on above:Result Comment: PERFORMED BY: [place] [phone] PATHOLOGIST BULL CHAIN OPERATOR CARLOS BIRMINGHAM M.D.Performed By: #### HEPACUTE, HBCAB, HBSAB #### [facility] ,Glucose [Mass/Vol]250 mg/dLOrlando Health South Seminole Hospital Physician GroupComment on above: Result Comment: Random Glucose Reference Range is dependent on time and content of last meal. Glucose of more than 200 mg/dL in a nonstressed, ambulatory subject supports the diagnosis of Diabetes Mellitus.Performed By: #### HEPACUTE, HBCAB, HBSAB #### [facility] ,Glucose [Mass/Vol]261 mg/dLOrlando Health [facility] Semin[facility] Hospital Physician GroupComment on above: Result Comment: Random Glucose Reference Range is dependent on time and content of last meal. Glucose of more than 200 mg/dL in a nonstressed, ambulatory subject supports the diagnosis of Diabetes Mellitus. PERFORMED BY: [place] [id number] PATHOLOGIST BULL CHAIN OPERATOR CARLOS BIRMINGHAM M.D.Performed By: #### HEPACUTE, HBCAB, HBSAB #### [facility] ,Glucose [Mass/Vol]185 mg/dLNoAt[facility] Physician GroupComment on above: Result Comment: Random Glucose Reference Range is dependent on time and content of last meal. Glucose of more than 200 mg/dL in a nonstressed, ambulatory subject supports the diagnosis of Diabetes Mellitus. PERFORMED BY: [place] [id number] PATHOLOGIST BULL CHAIN OPERATOR CARLOS BIRMINGHAM M.D.Performed By: #### HEPACUTE, HBCAB, HBSAB #### [facility] ,Glucose [Mass/Vol]114 mg/dLOrlando Health [facility] Physician [facility] GulfportComment on above: Result Comment: Random Glucose Reference Range is dependent on time and content of last meal. Glucose of more than 200 mg/dL in a nonstressed, ambulatory subject supports the diagnosis of Diabetes Mellitus. PERFORMED BY: [place] [id number] PATHOLOGIST BULL CHAIN OPERATOR CARLOS BIRMINGHAM M.D.Performed By: #### HEPACUTE, HBCAB, HBSAB #### [facility] ,Hemogram CBC Without Diffon 51-05-9278Dfujwsfbmht distribution width (RBC) [Ratio]14.7 %Pclofz09.0-14.8The [facility] HospitalComment on above: Performed By: #### GLULS #### Point of Care testing ,Hematocrit (Bld) [Volume fraction]29.1 %Low38.8-50.0The [facility] HospitalComment on above:Performed By: #### GLULS #### Point of Care testing ,Hemoglobin (Bld) [Mass/Vol]9.7 g/dLLow13.0-17.0[facility] Comment on above:Performed By: #### GLULS #### Point of Care testing ,MCH (RBC) [Entitic mass]28.9 ofTnbmzn56.5-35.2The [facility] Comment on above:Performed By: #### GLULS #### Point of Care testing ,MCV (RBC) [Entitic vol]87.0 zBVkwwaq89.5-101The [facility] Comment on above:Performed By: #### GLULS #### Point of Care testing ,Mean Corpuscular HGB Conc33.3 g/tTOgkznv64.5-35.6The [facility] Comment on above:Performed By: #### GLULS #### Point of Care testing ,Platelet mean volume (Bld) [Entitic vol]7.1 fLNormal6.6-10.1The [facility] Physician [facility]portComment on above:Result Comment: PERFORMED BY: [place] [address] [place] [address] PATHOLOGIST BULL CHAIN OPERATOR CARLOS BIRMINGHAM M.D.Performed By: #### GLULS #### Point of Care testing ,Platelets (Bld) [#/Vol]202 10*3/yIZbvpti491-967Xry [facility] Physician [facility] Comment on above:Performed By: #### GLULS #### Point of Care testing ,RBC (Bld) [#/Vol]3.34 10*6/uLLow3.90-5.60The [facility] Physician [facility]portComment on above:Performed By: #### GLULS #### Point of Care testing ,White Blood Count10.0 [CFU]/mLNormal4.1-10.5The [facility] Comment on above:Performed By: #### GLULS #### Point of Care testing ,Renal Function Panelon 89-88-3216Vvdomav [Mass/Vol]3.1 g/dLLow3.5-5.7The [facility] Physician GroupComment on above:Performed By: #### GLULS #### Point of Care testing ,Anion gap [Moles/Vol]16.0 mmol/LHigh6.0-15.0The [facility] [facility] Comment on above:Performed By: #### GLULS #### Point of Care testing ,Calcium [Mass/Vol]8.8 mg/dLNormal8.6-10.3The [facility] Physician GroupComment on above:Performed By: #### GLULS #### Point of Care testing ,Chloride [Moles/Vol]95 mmol/IAbw03-703Pkq [facility] Physician GroupComment on above:Performed By: #### GLULS #### Point of Care testing ,CO2 [Moles/Vol]28.1 mmol/KMpgcvy48.0-31.0The [facility] Physician GroupComment on above:Performed By: #### GLULS #### Point of Care testing ,Creatinine [Mass/Vol]6.35 mg/dLHigh0.70-1.30The [facility] Comment on above:Performed By: #### GLULS #### Point of Care testing ,Creatinine Clr Calc Fuucofqk24.04NormalThe [facility] Physician GroupComment on above:Result Comment: PERFORMED BY: [address] [place] [address] PATHOLOGIST BULL CHAIN OPERATOR CARLOS BIRMINGHAM M.D.Performed By: #### GLULS #### Point of Care testing ,GFR/1.73 sq M.predicted MDRD (S/P/Bld) [Vol rate/Area]9.145 mL/min/{1.73_m2} NormalThe [facility] Physician GroupComment on above:Performed By: #### GLULS #### Point of Care testing ,Glucose [Mass/Vol]126 mg/eRRwgp75-658Qoq [facility] Physician GroupComment on above:Result Comment: Random Glucose Reference Range is dependent on time and content of last meal. Glucose of more than 200 mg/dL in a nonstressed, ambulatory subject supports the diagnosis of Diabetes Mellitus. ADA recommended reference rangePerformed By: #### GLULS #### Point of Care testing ,Phosphate [Mass/Vol]5.4 mg/dLHigh2.5-4.5The [facility] Physician GroupComment on above:Performed By: #### GLULS #### Point of Care testing ,Potassium [Moles/Vol]4.1 mmol/LNormal3.5-5.1[facility] Comment on above:Performed By: #### GLULS #### Point of Care testing ,Sodium [Moles/Vol]135 mmol/VKac786-712Ptq [facility] Physician GroupComment on above:Performed By: #### GLULS #### Point of Care testing ,Urea nitrogen [Mass/Vol]65 mg/dLHigh7-25The [facility] Physician GroupComment on above:Performed By: #### GLULS #### Point of Care testing ,Complete Blood Count Auto Diffon 80-45-6560Putgrubme (Bld) [#/Vol]0.0 10*3/uL Normal0.0-0.2The [facility] Physician GroupComment on above:Result Comment: PERFORMED BY: [place] [address] PATHOLOGIST BULL CHAIN OPERATOR CARLOS BIRMINGHAM M.D.Performed By: #### RENAL #### [place] [address] USABasophils/100 WBC (Bld)0.4 %Normal.The [facility] Physician GroupComment on above:Performed By: #### RENAL #### [place] [address] USAEosinophils (Bld) [#/Vol]0.3 10*3/uLNormal0.0-0.45The [facility] Physician GroupComment on above:Performed By: #### RENAL #### [place] [address] USAEosinophils/100 WBC (Bld)2.8 %Normal.The [facility] Physician GroupComment on above:Performed By: #### RENAL #### [place] [address] USAErythrocyte distribution width (RBC) [Ratio]15.3 %High 12.0-14.8The [facility] Physician GroupComment on above:Performed By: #### RENAL #### [place] [address] USAHematocrit (Bld) [Volume fraction]30.7 %Low38.8-50.0The [facility] Physician GroupComment on above:Performed By: #### RENAL #### [place] [address] USAHemoglobin (Bld) [Mass/Vol]10.1 g/dLLow13.0-17.0The [facility] Physician GroupComment on above:Performed By: #### RENAL #### [place] [address] USALymphocytes (Bld) [#/Vol]1.3 10*3/uLNormal1.00-4.8The [facility] Physician GroupComment on above:Performed By: #### RENAL #### [place] [address] USALymphocytes/100 WBC (Bld)12.8 %Normal.The [facility] Physician GroupComment on above:Performed By: #### RENAL #### [place] [address] USAMCH (RBC) [Entitic mass]28.9 baFnqjda74.5-35.2The [facility] Physician GroupComment on above:Performed By: #### RENAL #### [place] [address] USAMCV (RBC) [Entitic vol]87.7 cSXusjym72.5-101The [facility] Physician GroupComment on above:Performed By: #### RENAL #### [place] [address] USAMean Corpuscular HGB Conc33.0 g/jWJggcds42.5-35.6The [facility] Physician GroupComment on above:Performed By: #### RENAL #### [place] [address] USAMonocytes (Bld) [#/Vol]0.9 10*3/uLHigh0.0-0.8The [facility] Physician GroupComment on above:Performed By: #### RENAL #### [address] [address] USAMonocytes/100 WBC (Bld)9.1 %Normal.The [facility] Physician GroupComment on above:Performed By: #### RENAL #### [facility] [address] [place] [address] USANeutrophils (Bld) [#/Vol]7.4 10*3/uLNormal1.8-7.7The [facility] Physician GroupComment on above:Performed By: #### RENAL #### [facility] [address] [place] [address] USANeutrophils/100 WBC (Bld)74.9 %Normal.The [facility] Physician GroupComment on above:Performed By: #### RENAL #### [facility] [address] [place] [address] USANRBC%0.1 /100{WBC}Normal0-0.5The [facility] Comment on above:Performed By: #### RENAL #### [facility] [address] [place] [address] USAPlatelet mean volume (Bld) [Entitic vol]7.4 fLNormal 6.6-10.1The [facility] Physician GroupComment on above:Performed By: #### RENAL #### [facility] [address] [place] [address] USAPlatelets (Bld) [#/Vol]176 10*3/zSMquyil246-048Bbm [facility] Physician GroupComment on above:Performed By: #### RENAL #### [facility] [address] [place] [address] USARBC (Bld) [#/Vol]3.50 10*6/uLLow3.90-5.60The [facility] Physician GroupComment on above:Performed By: #### RENAL #### [facility] [address] [place] [address] USAWBC (Bld) [#/Vol]10.0 10*3/uLNormal4.1-10.5The [facility] Physician GroupComment on above:Performed By: #### RENAL #### [facility] [address] [place] [address] USAWhite Blood Count10.0 [CFU]/mLNormal4.1-10.5The [facility] Physician GroupComment on above:Performed By: #### RENAL #### [facility] [address] [place] [address] USAGlucose Poct Glucometerson 06-56-2692Jkeiuyz [Mass/Vol]175 mg/dLNoAt[facility] Physician GroupComment on above:Result Comment: Random Glucose Reference Range is dependent on time and content of last meal. Glucose of more than 200 mg/dL in a nonstressed, ambulatory subject supports the diagnosis of Diabetes Mellitus. PERFORMED BY: [place] [address] PATHOLOGIST BULL CHAIN OPERATOR CARLOS BIRMINGHAM M.D.Performed By: #### GLULS #### Point of Care testing ,Glucose [Mass/Vol]181 mg/dLNoAtrium Health [facility] Physician GroupComment on above: Result Comment: Random Glucose Reference Range is dependent on time and content of last meal. Glucose of more than 200 mg/dL in a nonstressed, ambulatory subject supports the diagnosis of Diabetes Mellitus. PERFORMED BY: [place] [address] PATHOLOGIST BULL CHAIN OPERATOR CARLOS BIRMINGHAM M.D.Performed By: #### HEPACUTE, HBCAB, HBSAB #### [facility] ,Glucose [Mass/Vol]210 mg/dLNoAtrium Health [facility] Physician [facility]portComment on above: Result Comment: Random Glucose Reference Range is dependent on time and content of last meal. Glucose of more than 200 mg/dL in a nonstressed, ambulatory subject supports the diagnosis of Diabetes Mellitus. PERFORMED BY: [place] [address] PATHOLOGIST BULL CHAIN OPERATOR CARLOS BIRMINGHAM M.D.Performed By: #### RENAL #### [facility] [address] [place] [address] USAGlucose [Mass/Vol]194 mg/dLNoAtrium [facility] Physician GroupComment on above:Result Comment: Random Glucose Reference Range is dependent on time and content of last meal. Glucose of more than 200 mg/dL in a nonstressed, ambulatory subject supports the diagnosis of Diabetes Mellitus. PERFORMED BY: [place] [address] PATHOLOGIST BULL CHAIN OPERATOR CARLOS BIRMINGHAM M.D.Performed By: #### RENAL, MG #### [place] [address] USARenal Function Panelon 34-25-6582Mjwkpxy [Mass/Vol]3.1 g/dLLow3.5-5.7The [facility] Physician GroupComment on above:Performed By: #### HEPACUTE, HBCAB, HBSAB #### [facility] ,Anion gap [Moles/Vol]14.3 mmol/LNormal6.0-15.0The [facility] Comment on above:Performed By: #### HEPACUTE, HBCAB, HBSAB #### [facility] ,Calcium [Mass/Vol]8.4 mg/dLLow8.6-10.3The [facility] Physician GroupComment on above:Performed By: #### HEPACUTE, HBCAB, HBSAB #### [facility] ,Chloride [Moles/Vol]95 mmol/JTpk82-246Lwe [facility] Physician GroupComment on above:Performed By: #### HEPACUTE, HBCAB, HBSAB #### [facility] ,CO2 [Moles/Vol]28.8 mmol/COxhpxe76.0-31.0The [facility] Physician GroupComment on above:Performed By: #### HEPACUTE, HBCAB, HBSAB #### [facility] ,Creatinine [Mass/Vol]5.07 mg/dLHigh0.70-1.30The [facility] Comment on above:Performed By: #### HEPACUTE, HBCAB, HBSAB #### [facility] ,Creatinine Clr Calc Mxmvlqrj80.49NormalThe [facility] Physician GroupComment on above:Result Comment: PERFORMED BY: [place] [address] PATHOLOGIST BULL CHAIN OPERATOR CARLOS BIRMINGHAM M.D.Performed By: #### HEPACUTE, HBCAB, HBSAB #### [facility] ,GFR/1.73 sq M.predicted MDRD (S/P/Bld) [Vol rate/Area]11.982 mL/min/{1.73_m2} NormalThe [facility] Physician GroupComment on above:Performed By: #### HEPACUTE, HBCAB, HBSAB #### [facility] ,Glucose [Mass/Vol]199 mg/mYUvze10-291Wln [facility] Physician GroupComment on above:Result Comment: Random Glucose Reference Range is dependent on time and content of last meal. Glucose of more than 200 mg/dL in a nonstressed, ambulatory subject supports the diagnosis of Diabetes Mellitus. ADA recommended reference rangePerformed By: #### HEPACUTE, HBCAB, HBSAB #### [facility] ,Phosphate [Mass/Vol]5.7 mg/dLHigh2.5-4.5The [facility] Physician GroupComment on above:Performed By: #### HEPACUTE, HBCAB, HBSAB #### [facility] ,Potassium [Moles/Vol]4.1 mmol/LNormal3.5-5.1The [facility] Comment on above:Performed By: #### HEPACUTE, HBCAB, HBSAB #### [facility] ,Sodium [Moles/Vol]134 mmol/CNgw310-650Wdd [facility] Physician GroupComment on above:Performed By: #### HEPACUTE, HBCAB, HBSAB #### [facility] ,Urea nitrogen [Mass/Vol]52 mg/dLHigh7-25The [facility] Physician GroupComment on above:Performed By: #### HEPACUTE, HBCAB, HBSAB #### [facility] ,XR hip RT min 2V(w/wo pelvis)*on 94-35-1472NC hip RT min 2V(w/wo pelvis)* [facility] Main [address] [place] [address] XRay Report Signed Patient: Rashard Lyman MR#: [id number] : 1960 Acct:[id number] Age/Sex: 64 / M ADM Date: 12/23/24 Loc: 4N Room: [address] [place] [address] Type: ADM IN Attending Dr: Dinesh Cervantes [...] Mckinney M.D. 12/26/2024 5:01 PM Dictation Location: [place] [address] Transcribed By: [facility] 12/26/24 170 Dictated By: Hector Mckinney II, MD 12/26/24 170 Signed By: 12/26/24 170[facility] Physician GroupXR wrist RT 2Von 53-79-6556CJ wrist RT 2VBL[facility] Main [address] [address] XRay Report Signed Patient: Rashard Lyman MR#: [id number] : 1960 Acct:[id number] Age/Sex: 64 / M ADM Date: 12/23/24 Loc: 4N Room: 1B0152-2 Type: ADM IN Attending Dr: Dinesh Cervantes [...] Mckinney M.D. 12/26/2024 5:00 PM Dictation Location: [place] [address] Transcribed By: [facility] 12/26/24 1700 Dictated By: Hector Mckinney II, MD 12/26/24 1659 Signed By: 12/26/24 170NoAt[facility] Physician GroupComplete Blood Count Auto Diffon [id number] (Bld) [#/Vol]0.1 10*3/uLNormal0.0-0.2The [facility] Physician GroupComment on above:Result Comment: PERFORMED BY: [place] [address] PATHOLOGIST BULL CHAIN OPERATOR CARLOS BIRMINGHAM M.D.Performed By: #### RENAL, MG #### [place] [address] USABasophils/100 WBC (Bld)0.4 %Normal.The [facility] Physician GroupComment on above:Performed By: #### RENAL, MG #### [place] [address] USAEosinophils (Bld) [#/Vol]0.0 10*3/uLNormal0.0-0.45The [facility] Physician GroupComment on above:Performed By: #### RENAL, MG #### [place] [address] USAEosinophils/100 WBC (Bld)0.0 %Normal.The [facility] Physician GroupComment on above:Performed By: #### RENAL, MG #### [place] [address] USAErythrocyte distribution width (RBC) [Ratio]14.8 %Normal 12.0-14.8The [facility] Physician GroupComment on above:Performed By: #### RENAL, MG #### [place] [address] USAHematocrit (Bld) [Volume fraction]31.3 %Low38.8-50.0The [facility] Physician GroupComment on above:Performed By: #### RENAL, MG #### [place] [address] USAHemoglobin (Bld) [Mass/Vol]10.3 g/dLLow13.0-17.0The [facility] Physician GroupComment on above:Performed By: #### RENAL, MG #### [place] [address] USALymphocytes (Bld) [#/Vol]0.9 10*3/uLLow1.00-4.8The [facility] Physician GroupComment on above:Performed By: #### RENAL, MG #### [place] [address] USALymphocytes/100 WBC (Bld)6.1 %Normal.The [facility] Physician GroupComment on above:Performed By: #### RENAL, MG #### [place] [address] USAMCH (RBC) [Entitic mass]28.9 suZwkxae38.5-35.2The [facility] Physician GroupComment on above:Performed By: #### RENAL, MG #### [place] [address] USAMCV (RBC) [Entitic vol]87.5 lWXhuqnv08.5-101The [facility] Physician GroupComment on above:Performed By: #### RENAL, MG #### [place] [address] USAMean Corpuscular HGB Conc33.0 g/zLEcsdeg81.5-35.6The [facility] Physician GroupComment on above:Performed By: #### RENAL, MG #### [facility] [address] [place] [address] USAMonocytes (Bld) [#/Vol]1.3 10*3/uLHigh0.0-0.8The [facility] Physician GroupComment on above:Performed By: #### RENAL, MG #### [facility] [address] [place] [address] USAMonocytes/100 WBC (Bld)9.0 %Normal.The [facility] Physician GroupComment on above:Performed By: #### RENAL, MG #### [facility] [address] [place] [address] USANeutrophils (Bld) [#/Vol]12.6 10*3/uLHigh1.8-7.7The [facility] Physician GroupComment on above:Performed By: #### RENAL, MG #### [facility] [address] [place] [address] USANeutrophils/100 WBC (Bld)84.5 %Normal.The [facility] Physician GroupComment on above:Performed By: #### RENAL, MG #### [facility] [address] [place] [address] USANRBC%0.1 /100{WBC}Normal0-0.5The [facility] Comment on above:Performed By: #### RENAL, MG #### [facility] [address] [place] [address] USAPlatelet mean volume (Bld) [Entitic vol]7.8 fLNormal 6.6-10.1The [facility] Physician GroupComment on above:Performed By: #### RENAL, MG #### [facility] [address] [place] [address] USAPlatelets (Bld) [#/Vol]170 10*3/cQOhsxcx051-953Zqc [facility] Physician GroupComment on above:Performed By: #### RENAL, MG #### [facility] [address] [place] [address] USARBC (Bld) [#/Vol]3.58 10*6/uLLow3.90-5.60The [facility] Physician GroupComment on above:Performed By: #### RENAL, MG #### [facility] [address] [place] [address] USAWBC (Bld) [#/Vol]15.0 10*3/uLHigh4.1-10.5The [facility] Physician GroupComment on above:Performed By: #### RENAL, MG #### [facility] [address] [place] [address] USAWhite Blood Count15.0 [CFU]/mLHigh4.1-10.5The [facility] Physician GroupComment on above:Performed By: #### RENAL, MG #### [facility] [address] [place] [address] USAGlucose Poct Glucometerson 25-68-6012Pdgilxf [Mass/Vol]298 mg/dLNoAtrium Health [facility] Physician [facility]portComment on above:Result Comment: Random Glucose Reference Range is dependent on time and content of last meal. Glucose of more than 200 mg/dL in a nonstressed, ambulatory subject supports the diagnosis of Diabetes Mellitus. PERFORMED BY: [place] [address] PATHOLOGIST BULL CHAIN OPERATOR CARLOS BIRMINGHAM M.D.Performed By: #### HEPACUTE, HBCAB, HBSAB #### [facility] ,Glucose [Mass/Vol]299 mg/dLOrlando Health [facility] Physician [facility]portComment on above: Result Comment: Random Glucose Reference Range is dependent on time and content of last meal. Glucose of more than 200 mg/dL in a nonstressed, ambulatory subject supports the diagnosis of Diabetes Mellitus. PERFORMED BY: [place] [address] PATHOLOGIST BULL CHAIN OPERATOR CARLOS BIRMINGHAM M.D.Performed By: #### HEPACUTE, HBCAB, HBSAB #### [facility] ,Mwtqfcu9Zsf7: Cleaned MeterNormOr[facility] Physician [facility]portComment on above: Result Comment: PERFORMED BY: [address] [address] PATHOLOGIST BULL CHAIN OPERATOR CARLOS BIRMINGHAM M.D.Performed By: #### HEPACUTE, HBCAB, HBSAB #### [facility] ,Glucose [Mass/Vol]143 mg/dLNoAt[facility] Physician GroupComment on above: Result Comment: Random Glucose Reference Range is dependent on time and content of last meal. Glucose of more than 200 mg/dL in a nonstressed, ambulatory subject supports the diagnosis of Diabetes Mellitus.Performed By: #### HEPACUTE, HBCAB, HBSAB #### [facility] ,Glucose [Mass/Vol]218 mg/dLNoAt[facility] Physician GroupComment on above: Result Comment: Random Glucose Reference Range is dependent on time and content of last meal. Glucose of more than 200 mg/dL in a nonstressed, ambulatory subject supports the diagnosis of Diabetes Mellitus. PERFORMED BY: [place] [address] PATHOLOGIST BULL CHAIN OPERATOR CARLOS BIRMINGHAM M.D.Performed By: #### GLULS #### Point of Care testing ,Magnesiumon 21-94-2035Bpkeltdat [Mass/Vol]2.5 mg/dLNormal1.9-2.7The [facility] Physician GroupComment on above:Result Comment: PERFORMED BY: [place] [address] PATHOLOGIST BULL CHAIN OPERATOR CARLOS BIRMINGHAM M.D.Performed By: #### RENAL, MG #### [facility] [address] [place] [address] USARenal Function Panelon 95-60-6309Tgscqft [Mass/Vol]3.1 g/dLLow3.5-5.7The [facility] Physician GroupComment on above:Performed By: #### RENAL, MG #### [facility] [address] [place] [address] USAAnion gap [Moles/Vol]19.1 mmol/LHigh6.0-15.0The [facility] Physician GroupComment on above:Performed By: #### RENAL, MG #### [facility] [address] [place] [address] USACalcium [Mass/Vol]8.3 mg/dLLow8.6-10.3The [facility] Physician GroupComment on above:Performed By: #### RENAL, MG #### [facility] [address] [place] [address] USAChloride [Moles/Vol]93 mmol/VByz56-544Skx [facility] Physician GroupComment on above:Performed By: #### RENAL, MG #### [facility] [address] [place] [address] USACO2 [Moles/Vol]24.8 mmol/UCanwyk82.0-31.0The [facility] Physician GroupComment on above:Performed By: #### RENAL, MG #### [place] [address] USACreatinine [Mass/Vol]5.68 mg/dLHigh0.70-1.30The [facility] Physician GroupComment on above:Performed By: #### RENAL, MG #### [facility] [address] [place] [address] USACreatinine Clr Calc Lkgobhix54.03NormAshtabula County Medical Centere [facility] Physician GroupComment on above:Performed By: #### RENAL, MG #### [place] [address] USAGFR/1.73 sq M.predicted MDRD (S/P/Bld) [Vol rate/Area] 10.455 mL/min/{1.73_m2}NormalThe [facility] Physician GroupComment on above: Performed By: #### RENAL, MG #### [place] [address] USAGlucose [Mass/Vol]228 mg/iKHsze35-343Xfx [facility] Physician GroupComment on above:Result Comment: Random Glucose Reference Range is dependent on time and content of last meal. Glucose of more than 200 mg/dL in a nonstressed, ambulatory subject supports the diagnosis of Diabetes Mellitus. ADA recommended reference rangePerformed By: #### RENAL, MG #### [place] [address] USAPhosphate [Mass/Vol]7.2 mg/dLHigh2.5-4.5The [facility] Physician GroupComment on above:Performed By: #### RENAL, MG #### [place] [address] USAPotassium [Moles/Vol]4.9 mmol/LNormal3.5-5.1The [facility] Physician GroupComment on above:Performed By: #### RENAL, MG #### [place] [address] USASodium [Moles/Vol]132 mmol/PYar802-494Wsw [facility] Physician GroupComment on above:Performed By: #### RENAL, MG #### [place] [address] USAUrea nitrogen [Mass/Vol]65 mg/dLHigh7-25The [facility] Physician GroupComment on above:Performed By: #### RENAL, MG #### [place] [address] USABasic Metabolic Panelon 47-74-8173Ngngd gap [Moles/Vol] 17.6 mmol/LHigh6.0-15.0The [facility] Physician GroupComment on above:Performed By: #### RENAL, MG #### [place] [address] USACalcium [Mass/Vol]8.4 mg/dLLow8.6-10.3The [facility] Physician GroupComment on above:Performed By: #### RENAL, MG #### [place] [address] USACO2 [Moles/Vol]21.2 mmol/OVjfmig29.0-31.0The [facility] Physician GroupComment on above:Performed By: #### RENAL, MG #### [place] [address] USACreatinine [Mass/Vol]6.64 mg/dLHigh0.70-1.30The [facility] Physician GroupComment on above:Performed By: #### RENAL, MG #### [place] [address] USACreatinine Clr Calc Cfcoyanr50.16NormalThe [facility] Physician GroupComment on above:Result Comment: PERFORMED BY: [place] [address] PATHOLOGIST BULL CHAIN OPERATOR CARLOS BIRMINGHAM M.D.Performed By: #### RENAL, MG #### [place] [address] USAGFR/1.73 sq M.predicted MDRD (S/P/Bld) [Vol rate/Area] 8.667 mL/min/{1.73_m2}NormalThe [facility] Physician GroupComment on above: Performed By: #### RENAL, MG #### [place] [address] USAGlucose [Mass/Vol]149 mg/rPFhtj76-535Afl [facility] Physician GroupComment on above:Result Comment: Random Glucose Reference Range is dependent on time and content of last meal. Glucose of more than 200 mg/dL in a nonstressed, ambulatory subject supports the diagnosis of Diabetes Mellitus. ADA recommended reference rangePerformed By: #### RENAL, MG #### [place] [address] USAPotassium [Moles/Vol]4.8 mmol/LNormal3.5-5.1The [facility] Physician [facility]portComment on above:Performed By: #### RENAL, MG #### [place] [address] USASodium [Moles/Vol]133 mmol/EJej935-876Mmz [facility] Physician GroupComment on above:Performed By: #### RENAL, MG #### [place] [address] USAUrea nitrogen [Mass/Vol]73 mg/dLHigh7-25The [facility] Physician GroupComment on above:Performed By: #### RENAL, MG #### [place] [address] USAComplete Blood Count Auto Diffon 85-38-5841Bxaypiupr (Bld) [#/Vol]0.1 10*3/uLNormal0.0-0.2The [facility] Physician GroupComment on above: Result Comment: PERFORMED BY: [place] [address] PATHOLOGIST BULL CHAIN OPERATOR CARLOS BIRMINGHAM M.D.Performed By: #### RENAL, MG #### [place] [address] USABasophils/100 WBC (Bld)0.6 %Normal.The [facility] Physician GroupComment on above:Performed By: #### RENAL, MG #### [place] [address] USAEosinophils (Bld) [#/Vol]0.5 10*3/uLHigh0.0-0.45The [facility] Physician GroupComment on above:Performed By: #### RENAL, MG #### [place] [address] USAEosinophils/100 WBC (Bld)3.6 %Normal.The [facility] Physician GroupComment on above:Performed By: #### RENAL, MG #### [place] [address] USAErythrocyte distribution width (RBC) [Ratio]14.9 %High 12.0-14.8The [facility] Physician GroupComment on above:Performed By: #### RENAL, MG #### [place] [address] USAHematocrit (Bld) [Volume fraction]33.2 %Low38.8-50.0The [facility] Physician GroupComment on above:Performed By: #### RENAL, MG #### [place] [address] USAHemoglobin (Bld) [Mass/Vol]11.1 g/dLLow13.0-17.0The [facility] Physician GroupComment on above:Performed By: #### RENAL, MG #### [place] [address] USALymphocytes (Bld) [#/Vol]1.6 10*3/uLNormal1.00-4.8The [facility] Physician GroupComment on above:Performed By: #### RENAL, MG #### [facility] [address] [id number] USALymphocytes/100 WBC (Bld)12.8 %Normal.The [facility] Physician GroupComment on above:Performed By: #### RENAL, MG #### [facility] [address] [place] [address] USAH (RBC) [Entitic mass]28.9 yiNtemsr59.5-35.2The [facility] Physician GroupComment on above:Performed By: #### RENAL, MG #### [facility] [address] [place] [address] USAMCV (RBC) [Entitic vol]86.6 cAOssbzz62.5-101The [facility] Physician GroupComment on above:Performed By: #### RENAL, MG #### [facility] [address] [place] [address] USAMean Corpuscular HGB Conc33.4 g/pPAwfozb73.5-35.6The [facility] Physician GroupComment on above:Performed By: #### RENAL, MG #### [facility] [address] [place] [address] USAMonocytes (Bld) [#/Vol]1.1 10*3/uLHigh0.0-0.8The [facility] Physician GroupComment on above:Performed By: #### RENAL, MG #### [facility] [address] [id number] USAMonocytes/100 WBC (Bld)9.0 %Normal.The [facility] Physician GroupComment on above:Performed By: #### RENAL, MG #### [facility] [address] [id number] USANeutrophils (Bld) [#/Vol]9.3 10*3/uLHigh1.8-7.7The [facility] Physician GroupComment on above:Performed By: #### RENAL, MG #### [facility] [address] [id number] USANeutrophils/100 WBC (Bld)74.0 %Normal.The [facility] Physician GroupComment on above:Performed By: #### RENAL, MG #### [place] [address] USANRBC%0.1 /100{WBC}Normal0-0.5The [facility] Comment on above:Performed By: #### RENAL, MG #### [place] [address] USAPlatelet mean volume (Bld) [Entitic vol]7.2 fLNormal 6.6-10.1The [facility] Physician GroupComment on above:Performed By: #### RENAL, MG #### [place] [address] USAPlatelets (Bld) [#/Vol]160 10*3/bIIhreahsw639-705Dvb [facility] Physician GroupComment on above:Performed By: #### RENAL, MG #### [place] [address] USARBC (Bld) [#/Vol]3.83 10*6/uLLow3.90-5.60The [facility] Physician GroupComment on above:Performed By: #### RENAL, MG #### [place] [address] USAWBC (Bld) [#/Vol]12.5 10*3/uLHigh4.1-10.5The [facility] Physician GroupComment on above:Performed By: #### RENAL, MG #### [place] [address] USAWhite Blood Count12.5 [CFU]/mLHigh4.1-10.5The [facility] Physician GroupComment on above:Performed By: #### RENAL, MG #### [place] [address] USAFerritinon 09-78-2832Apeabhre [Mass/Vol]384.2 ng/mLHigh 23.9-336.2The [facility] Physician GroupComment on above:Result Comment: PERFORMED BY: [place] [address] PATHOLOGIST BULL CHAIN OPERATOR CARLOS BIRMINGHAM M.D.Performed By: #### GLULS #### Point of Care testing ,Glucose Poct Glucometerson 64-40-0901Twmigff [Mass/Vol]295 mg/dLNoAtrium Health Steele Creek Physician GroupComment on above:Result Comment: Random Glucose Reference Range is dependent on time and content of last meal. Glucose of more than 200 mg/dL in a nonstressed, ambulatory subject supports the diagnosis of Diabetes Mellitus. PERFORMED BY: [place] [address] PATHOLOGIST BULL CHAIN OPERATOR CARLOS BIRMINGHAM M.D.Performed By: #### RENAL, MG #### [place] [address] USAGlucose [Mass/Vol]258 mg/dLNoAtrium Health Steele Creek Physician GroupComment on above:Result Comment: Random Glucose Reference Range is dependent on time and content of last meal. Glucose of more than 200 mg/dL in a nonstressed, ambulatory subject supports the diagnosis of Diabetes Mellitus. PERFORMED BY: [place] [address] PATHOLOGIST BULL CHAIN OPERATOR CARLOS BIRMINGHAM M.D.Performed By: #### RENAL, MG #### [place] [address] USAGlucose [Mass/Vol]178 mg/dLNoAtrium Health Steele Creek Physician GroupComment on above:Result Comment: Random Glucose Reference Range is dependent on time and content of last meal. Glucose of more than 200 mg/dL in a nonstressed, ambulatory subject supports the diagnosis of Diabetes Mellitus. PERFORMED BY: [place] [address] PATHOLOGIST BULL CHAIN OPERATOR CARLOS BIRMINGHAM M.D.Performed By: #### RENAL, MG #### [place] [address] USAGlucose [Mass/Vol]169 mg/dLNormOrlando [facility] Physician GroupComment on above:Result Comment: Random Glucose Reference Range is dependent on time and content of last meal. Glucose of more than 200 mg/dL in a nonstressed, ambulatory subject supports the diagnosis of Diabetes Mellitus. PERFORMED BY: [place] [phone] PATHOLOGIST BULL CHAIN OPERATOR CARLOS BIRMINGHAM M.D.Performed By: #### GLULS #### Point of Care testing ,Kmbdntt2Fer9: Cleaned MeterNoAtrium Health Steele Creek Physician GroupComment on above: Result Comment: PERFORMED BY: [place] [phone] PATHOLOGIST BULL CHAIN OPERATOR CARLOS BIRMINGHAM M.D.Performed By: #### RENAL, MG #### [place] [address] USAGlucose [Mass/Vol]154 mg/dLOrlando Health [facility] Physician [facility] GulfportComment on above:Result Comment: Random Glucose Reference Range is dependent on time and content of last meal. Glucose of more than 200 mg/dL in a nonstressed, ambulatory subject supports the diagnosis of Diabetes Mellitus.Performed By: #### RENAL, MG #### [place] [address] USAGlucose [Mass/Vol]146 mg/dLNoAtrium Health [facility] Creek Physician [facility] GulfportComment on above:Result Comment: Random Glucose Reference Range is dependent on time and content of last meal. Glucose of more than 200 mg/dL in a nonstressed, ambulatory subject supports the diagnosis of Diabetes Mellitus. PERFORMED BY: [place] [phone] PATHOLOGIST BULL CHAIN OPERATOR CARLOS BIRMINGHAM M.D.Performed By: #### RENAL, MG #### [place] [address] USAHepatitis Acute Panelon 37-95-1844KNeGr ScreenNegative NormalNegativeThe [facility] Physician [facility] GulfportComment on above:Performed By: #### HEPACUTE, HBCAB, HBSAB #### [facility] ,Hepatitis A Antibody IgMNegativeNormalNegativeThe [facility]ician Group Comment on above:Result Comment: A negative anti-HAV IgM result suggests no recent or current HAV infection.Performed By: #### HEPACUTE, HBCAB, HBSAB #### [facility] ,Hepatitis B Core Antibody IgMNegativeNormalNegativeThe [facility] Physician GroupComment on above:Performed By: #### HEPACUTE, HBCAB, HBSAB #### [facility] ,Hepatitis C Virus AntibodyNon-ReactiveNormalNon ReactiveThe [facility] Physician GroupComment on above:Performed By: #### HEPACUTE, HBCAB, HBSAB #### [facility] ,Interpretation Hepatitis CCommentNormal.The [facility] Physician GroupComment on above:Result Comment: Not infected with HCV unless early or acute infection is suspected (which may be delayed in an immunocompromised individual), or other evidence exists to indicate HCV infection.Performed By: #### HEPACUTE, HBCAB, HBSAB #### [facility] ,Hepatitis B Core Antibodyon 31-54-3934Eoqkofskk B Core AntibodyNegativeNormal NegativeThe [facility] Physician GroupComment on above:Result Comment: Performed at: [facility] [id number] Service Advocate Contact: Mata Brian PhD, Phone: [phone] PERFORMED BY: [place] [id number] PATHOLOGIST BULL CHAIN OPERATOR CARLOS BIRMINGHAM M.D.Performed By: #### HEPACUTE, HBCAB, HBSAB #### [facility] ,Hepatitis B Surface Antibodyon 91-79-2308Sadqytqlq B Surface Antibody Non-ReactiveNormal.The [facility] Physician GroupComment on above:Result Comment: Non Reactive: Not immune to HBV infection. Anti-HBs undetectable or less than 10 mIU/mL. Reactive: Evidence of HBV immunity. Anti-HBs levels greater than 10 mIU/mL.Performed By: #### HEPACUTE, HBCAB, HBSAB #### [facility] ,Iron and TIBC Profileon 12-24-2024% Iron Lciuasvbvv23.5 %Fwaf22-62Xpv [facility] Physician GroupComment on above:Performed By: #### GLULS #### Point of Care testing ,Iron [Mass/Vol]148 ug/uZSzvjyx54-718Deo [facility] Physician GroupComment on above:Performed By: #### GLULS #### Point of Care testing ,Total Iron Binding Nmonhhef240 ug/uYKss931-527Ccm [facility] Group Comment on above:Performed By: #### GLULS #### Point of Care testing ,Transferrin [Mass/Vol]140 mg/gYGzt591-324Koi [facility] Physician GroupComment on above:Performed By: #### GLULS #### Point of Care testing ,Magnesiumon 69-06-8123Lclbvvioh [Mass/Vol]2.5 mg/dLNormal1.9-2.7The [facility] Physician GroupComment on above:Result Comment: PERFORMED BY: [place] [address] PATHOLOGIST BULL CHAIN OPERATOR CARLOS BIRMINGHAM M.D.Performed By: #### GLULS #### Point of Care testing ,Renal Function Panelon 71-71-8294Solluxa [Mass/Vol]3.2 g/dLLow3.5-5.7The [facility] Physician GroupComment on above:Performed By: #### GLULS #### Point of Care testing ,Anion gap [Moles/Vol]18.0 mmol/LHigh6.0-15.0The [facility] Comment on above:Performed By: #### GLULS #### Point of Care testing ,Calcium [Mass/Vol]8.5 mg/dLLow8.6-10.3The [facility] Physician GroupComment on above:Performed By: #### GLULS #### Point of Care testing ,Chloride [Moles/Vol]99 mmol/MGsahma43-983Ofk [facility] Physician GroupComment on above:Performed By: #### GLULS #### Point of Care testing ,Performed By: #### RENAL, MG #### [place] [address] USACO2 [Moles/Vol]19.9 mmol/LLow21.0-31.0The [facility] Physician GroupComment on above:Performed By: #### GLULS #### Point of Care testing ,Creatinine [Mass/Vol]6.40 mg/dLHigh0.70-1.30The [facility] Comment on above:Performed By: #### GLULS #### Point of Care testing ,Creatinine Clr Calc Xesqzjzy41.81NoAtrium Health [facility] Creek Physician GroupComment on above:Performed By: #### GLULS #### Point of Care testing ,GFR/1.73 sq M.predicted MDRD (S/P/Bld) [Vol rate/Area]9.059 mL/min/{1.73_m2} NormalThe [facility] Physician GroupComment on above:Performed By: #### GLULS #### Point of Care testing ,Glucose [Mass/Vol]148 mg/tIUdio75-683Maq [facility] Physician GroupComment on above:Result Comment: Random Glucose Reference Range is dependent on time and content of last meal. Glucose of more than 200 mg/dL in a nonstressed, ambulatory subject supports the diagnosis of Diabetes Mellitus. ADA recommended reference rangePerformed By: #### GLULS #### Point of Care testing ,Phosphate [Mass/Vol]6.5 mg/dLHigh2.5-4.5The [facility] Physician GroupComment on above:Performed By: #### GLULS #### Point of Care testing ,Potassium [Moles/Vol]4.9 mmol/LNormal3.5-5.1The [facility] Physician [facility] Comment on above:Performed By: #### GLULS #### Point of Care testing ,Sodium [Moles/Vol]132 mmol/WUnc970-409Pgm [facility] Physician GroupComment on above:Performed By: #### GLULS #### Point of Care testing ,Urea nitrogen [Mass/Vol]70 mg/dLHigh7-25The [facility] Physician GroupComment on above:Performed By: #### GLULS #### Point of Care testing ,ABO/Rh Retypeon 57-32-6256YTW/RH Recheck ResultPositiveNoAtrium [facility] Creek Physician GroupComment on above:Order Comment: redrawResult Comment: PERFORMED BY: [facility] [address] [place] [address] PATHOLOGIST BULL CHAIN OPERATOR CARLOS BIRMINGHAM M.D.Basic Metabolic Panelon 85-09-1152Njxjh gap [Moles/Vol]15.6 mmol/LHigh6.0-15.0[facility] Physician GroupComment on above:Performed By: #### HEPACUTE, HBCAB, HBSAB #### [facility] ,Calcium [Mass/Vol]9.0 mg/dLNormal8.6-10.3THasbro Children's Hospital Physician GroupComment on above:Performed By: #### HEPACUTE, HBCAB, HBSAB #### [facility] ,Chloride [Moles/Vol]104 mmol/VBijxki25-180Zqw [facility] Physician GroupComment on above:Performed By: #### HEPACUTE, HBCAB, HBSAB #### [facility] ,CO2 [Moles/Vol]19.8 mmol/LLow21.0-31.0The [facility] Physician GroupComment on above:Performed By: #### HEPACUTE, HBCAB, HBSAB #### [facility] ,Creatinine [Mass/Vol]5.46 mg/dLHigh0.70-1.30The [facility] Comment on above:Performed By: #### HEPACUTE, HBCAB, HBSAB #### [facility] ,Creatinine Clr Calc Zzhzdova39.66NoAtrium Health [facility] Physician GroupComment on above:Performed By: #### HEPACUTE, HBCAB, HBSAB #### [facility] ,GFR/1.73 sq M.predicted MDRD (S/P/Bld) [Vol rate/Area]10.962 mL/min/{1.73_m2} NormalAdventhealth Wauchula Physician GroupComment on above:Performed By: #### HEPACUTE, HBCAB, HBSAB #### [facility] ,Glucose [Mass/Vol]288 mg/jUAdbt99-065Ezy [facility] Physician GroupComment on above:Result Comment: Random Glucose Reference Range is dependent on time and content of last meal. Glucose of more than 200 mg/dL in a nonstressed, ambulatory subject supports the diagnosis of Diabetes Mellitus. ADA recommended reference rangePerformed By: #### HEPACUTE, HBCAB, HBSAB #### [facility] ,Potassium [Moles/Vol]5.4 mmol/LHigh3.5-5.1The [facility] Physician GroupComment on above:Performed By: #### HEPACUTE, HBCAB, HBSAB #### [facility] ,Sodium [Moles/Vol]134 mmol/ZKgd979-063Vtq [facility] Physician GroupComment on above:Performed By: #### HEPACUTE, HBCAB, HBSAB #### [facility] ,Urea nitrogen [Mass/Vol]65 mg/dLHigh7-25The [facility] Physician GroupComment on above:Performed By: #### HEPACUTE, HBCAB, HBSAB #### [facility] ,Anion gap [Moles/Vol]17.6 mmol/LHigh6.0-15.0The [facility] Comment on above:Performed By: #### HEPACUTE, HBCAB, HBSAB #### [facility] ,Calcium [Mass/Vol]9.2 mg/dLNormal8.6-10.3The [facility] Physician GroupComment on above:Performed By: #### HEPACUTE, HBCAB, HBSAB #### [facility] ,Chloride [Moles/Vol]104 mmol/JDnjafd88-743Rim [facility] Physician GroupComment on above:Performed By: #### HEPACUTE, HBCAB, HBSAB #### [facility] ,CO2 [Moles/Vol]17.2 mmol/LLow21.0-31.0The [facility] Physician GroupComment on above:Performed By: #### HEPACUTE, HBCAB, HBSAB #### [facility] ,Creatinine [Mass/Vol]5.53 mg/dLHigh0.70-1.30The [facility] Comment on above:Performed By: #### HEPACUTE, HBCAB, HBSAB #### [facility] ,Creatinine Clr Calc Zasivdpg66.41NormAshtabula County Medical Centere [facility] Physician GroupComment on above:Result Comment: PERFORMED BY: [facility] [place] [address] PATHOLOGIST BULL CHAIN OPERATOR CARLOS BIRMINGHAM M.D.Performed By: #### HEPACUTE, HBCAB, HBSAB #### [facility] ,GFR/1.73 sq M.predicted MDRD (S/P/Bld) [Vol rate/Area]10.795 mL/min/{1.73_m2} NormalThe [facility] Physician GroupComment on above:Performed By: #### HEPACUTE, HBCAB, HBSAB #### [facility] ,Glucose [Mass/Vol]280 mg/nEEyel39-599Hvn [facility] Physician GroupComment on above:Result Comment: Random Glucose Reference Range is dependent on time and content of last meal. Glucose of more than 200 mg/dL in a nonstressed, ambulatory subject supports the diagnosis of Diabetes Mellitus. ADA recommended reference rangePerformed By: #### HEPACUTE, HBCAB, HBSAB #### [facility] ,Potassium [Moles/Vol]5.8 mmol/LHigh3.5-5.1The [facility] Physician GroupComment on above:Result Comment: Hemolysis is present at a level that could interfere with the result. Contact lab if redraw is requiredPerformed By: #### HEPACUTE, HBCAB, HBSAB #### [facility] ,Sodium [Moles/Vol]133 mmol/CAbs188-304Atb [facility] Physician GroupComment on above:Performed By: #### HEPACUTE, HBCAB, HBSAB #### [facility] ,Urea nitrogen [Mass/Vol]66 mg/dLHigh7-25The [facility] Physician GroupComment on above:Performed By: #### HEPACUTE, HBCAB, HBSAB #### [facility] ,Creatine Kinaseon 81-10-7826AT [Catalytic activity/Vol]190 U/GIncubh99-013[facility] Physician GroupComment on above:Result Comment: PERFORMED BY: [place] [address] PATHOLOGIST BULL CHAIN OPERATOR CARLOS BIRMINGHAM M.D.Performed By: #### RENAL, MG #### [place] [address] USAECG 12 lead ECGon 77-05-4854QQF 12 lead ECGBLANCHARD [facility] [place] [address] Electrocardiograph Report Signed Patient: Rashard Lyman MR#: [id number] : 1960 Acct:[id number] Age/Sex: 64 / M ADM Date: 12/23/24 Loc: 4N Room: [address] [place] [address] Type: ADM IN Attending Dr: Leno Dela [...] in Anterior leads Confirmed by Adrian Farmer ([id number]) on 12/23/2024 2:14:11 PM Referred By: Electronically Signed By: Adrian Farmer Transcribed By: MUS Signed By Adrian Farmer MD 12/23/24 1414NoAtrium Health [facility] Creek Physician GroupECH echo transthoracicon 14-36-6500VVB echo transthoracicBLANCHARD VALLEY [facility] [address] [place] [id number] Echocardiogram Signed Patient: Rashard Lyman MR#: [id number] : 1960 Acct:[id number] Age/Sex: 64 / M ADM Date: 12/23/24 Loc: 4N Room: 2Q3567-9 Type: ADM IN Attending Dr: Leno Dela [...] of pericarditis and pericardial effusion. Preop History: COPD,DM,ESRD,HTN,hyperlipidemia + + Interpretation Summary Ejection Fraction = [...] V1 VTI: 16.4 cm + + + + + : Electronically : : : : signed by: Ghislaine : : : : Hugo : : : : on: 12/23/2024, : : : : 11:35 AM : + + + Tech Comments previous echo in [facility]. No previous echo. Transcribed By: SCV Performed At: 12/23/24 1027 Signed By: Ghislaine Arias MD 12/23/24 1135[facility] Ferritinon 64-82-0614Hqtuihzv [Mass/Vol]378.8 ng/aEMmfk22.9-336.2The [facility] Physician [facility] GulfportComment on above:Result Comment: PERFORMED BY: [place] [address] [place] [address] PATHOLOGIST BULL CHAIN OPERATOR CARLOS BIRMINGHAM M.D.Performed By: #### HEPACUTE, HBCAB, HBSAB #### [facility] ,Glucose Poct Glucometerson 49-68-6950Otvtzrj [Mass/Vol]223 mg/dLNoAtrium Health [facility] Creek Physician GroupComment on above:Result Comment: Random Glucose Reference Range is dependent on time and content of last meal. Glucose of more than 200 mg/dL in a nonstressed, ambulatory subject supports the diagnosis of Diabetes Mellitus. PERFORMED BY: [place] [address] PATHOLOGIST BULL CHAIN OPERATOR CARLOS BIRMINGHAM M.D.Performed By: #### HEPACUTE, HBCAB, HBSAB #### [facility] ,Glucose [Mass/Vol]201 mg/dLNoAtrium [facility] Physician GroupComment on above: Result Comment: Random Glucose Reference Range is dependent on time and content of last meal. Glucose of more than 200 mg/dL in a nonstressed, ambulatory subject supports the diagnosis of Diabetes Mellitus. PERFORMED BY: [place] [address] PATHOLOGIST BULL CHAIN OPERATOR CARLOS BIRMINGHAM M.D.Performed By: #### GLULS #### Point of Care testing ,Glucose [Mass/Vol]234 mg/dLNoAtrium Health [facility] Creek Physician GroupComment on above: Result Comment: Random Glucose Reference Range is dependent on time and content of last meal. Glucose of more than 200 mg/dL in a nonstressed, ambulatory subject supports the diagnosis of Diabetes Mellitus. PERFORMED BY: [place] [address] PATHOLOGIST BULL CHAIN OPERATOR CARLOS BIRMINGHAM M.D.Performed By: #### RENAL, MG #### [place] [address] USAGlucose [Mass/Vol]292 mg/dLNoAtrium Health [facility] Physician GroupComment on above:Result Comment: Random Glucose Reference Range is dependent on time and content of last meal. Glucose of more than 200 mg/dL in a nonstressed, ambulatory subject supports the diagnosis of Diabetes Mellitus. PERFORMED BY: [facility] [address] [place] [address] PATHOLOGIST BULL CHAIN OPERATOR CARLOS BIRMINGHAM M.D.Performed By: #### GLULS #### Point of Care testing ,Hemogram CBC Without Diffon 89-13-7475Hczcvziyatc distribution width (RBC) [Ratio]15.0 %High12.0-14.8The [facility] Physician GroupComment on above: Performed By: #### HEPACUTE, HBCAB, HBSAB #### [facility] ,Hematocrit (Bld) [Volume fraction]39.1 %Tvzans04.8-50.0The [facility] Physician GroupComment on above:Performed By: #### HEPACUTE, HBCAB, HBSAB #### [facility] ,Hemoglobin (Bld) [Mass/Vol]12.7 g/dLLow13.0-17.0The [facility] Comment on above:Performed By: #### HEPACUTE, HBCAB, HBSAB #### [facility] ,MCH (RBC) [Entitic mass]28.4 nkNambmo56.5-35.2The [facility] Comment on above:Performed By: #### HEPACUTE, HBCAB, HBSAB #### [facility] ,MCV (RBC) [Entitic vol]87.7 xRLphzbe74.5-101The [facility] Comment on above:Performed By: #### HEPACUTE, HBCAB, HBSAB #### [facility] ,Mean Corpuscular HGB Conc32.4 g/dLLow32.5-35.6The [facility] Comment on above:Performed By: #### HEPACUTE, HBCAB, HBSAB #### [facility] ,Platelet mean volume (Bld) [Entitic vol]6.8 fLNormal6.6-10.1The [facility] Physician GroupComment on above:Result Comment: PERFORMED BY: [facility] [address] [place] [address] PATHOLOGIST BULL CHAIN OPERATOR CARLOS BIRMINGHAM M.D.Performed By: #### HEPACUTE, HBCAB, HBSAB #### [facility] ,Platelets (Bld) [#/Vol]225 10*3/xUTjfduo718-318Cge [facility] Physician [facility] Comment on above:Performed By: #### HEPACUTE, HBCAB, HBSAB #### [facility] ,RBC (Bld) [#/Vol]4.46 10*6/uLNormal3.90-5.60The [facility] Comment on above:Performed By: #### HEPACUTE, HBCAB, HBSAB #### [facility] ,White Blood Count16.0 [CFU]/mLHigh4.1-10.5The [facility] Physician GroupComment on above:Performed By: #### HEPACUTE, HBCAB, HBSAB #### [facility] ,Iron and TIBC Profileon 12-23-2024% Iron Hstlnypvke02.6 %Iww95-84Xxg [facility] Physician GroupComment on above:Performed By: #### HEPACUTE, HBCAB, HBSAB #### [facility] ,Iron [Mass/Vol]30 ug/gAPcp97-354Fjr [facility] Physician GroupComment on above: Performed By: #### HEPACUTE, HBCAB, HBSAB #### [facility] ,Total Iron Binding Gdlhfzto181 ug/lEMtj359-974Alm [facility] Physician [facility] Comment on above:Performed By: #### HEPACUTE, HBCAB, HBSAB #### [facility] ,Transferrin [Mass/Vol]158 mg/zCRrx925-124Jco [facility] Physician GroupComment on above:Performed By: #### HEPACUTE, HBCAB, HBSAB #### [facility] ,Potassiumon 51-69-0498Awzwqqywq [Moles/Vol]4.8 mmol/LNormal3.5-5.1The [facility] Physician GroupComment on above:Result Comment: PERFORMED BY: [facility] [place] [address] PATHOLOGIST BULL CHAIN OPERATOR CARLOS BIRMINGHAM M.D.Performed By: #### RENAL, MG #### [place] [address] USARenal Function Panelon 52-64-0007Zmjziyj [Mass/Vol]3.4 g/dLLow3.5-5.7The [facility] Physician GroupComment on above:Performed By: #### RENAL #### [place] [address] USAAnion gap [Moles/Vol]13.6 mmol/LNormal6.0-15.0The [facility] [facility] Physician GroupComment on above:Performed By: #### RENAL #### [place] [address] USACalcium [Mass/Vol]8.9 mg/dLNormal8.6-10.3The [facility] Physician GroupComment on above:Performed By: #### RENAL #### [place] [address] USAChloride [Moles/Vol]100 mmol/YYdkzef96-949Ixt [facility] Physician GroupComment on above:Performed By: #### RENAL #### [place] [address] USACO2 [Moles/Vol]24.3 mmol/GTfxbnw85.0-31.0The [facility] Physician GroupComment on above:Performed By: #### RENAL #### [place] [address] USACreatinine [Mass/Vol]5.69 mg/dLHigh0.70-1.30The [facility] Physician GroupComment on above:Performed By: #### RENAL #### [place] [address] USACreatinine Clr Calc Hidndrfy47.86NormalThe [facility] Physician GroupComment on above:Result Comment: PERFORMED BY: [place] [address] PATHOLOGIST BULL CHAIN OPERATOR CARLOS BIRMINGHAM M.D.Performed By: #### RENAL #### [place] [address] USAGFR/1.73 sq M.predicted MDRD (S/P/Bld) [Vol rate/Area] 10.432 mL/min/{1.73_m2}NormalThe [facility] Physician GroupComment on above: Performed By: #### RENAL #### [place] [address] USAGlucose [Mass/Vol]209 mg/nYUeaj07-575Vjt [facility] Physician GroupComment on above:Result Comment: Random Glucose Reference Range is dependent on time and content of last meal. Glucose of more than 200 mg/dL in a nonstressed, ambulatory subject supports the diagnosis of Diabetes Mellitus. ADA recommended reference rangePerformed By: #### RENAL #### [place] [address] USAPhosphate [Mass/Vol]6.9 mg/dLHigh2.5-4.5The [facility] Physician GroupComment on above:Performed By: #### RENAL #### [place] [address] USAPotassium [Moles/Vol]4.9 mmol/LNormal3.5-5.1The [facility] Physician GroupComment on above:Performed By: #### RENAL #### [place] [address] USASodium [Moles/Vol]133 mmol/VMvx246-137Inu [facility] Physician GroupComment on above:Performed By: #### RENAL #### [place] [address] USAUrea nitrogen [Mass/Vol]64 mg/dLHigh7-25The [facility] Physician GroupComment on above:Performed By: #### RENAL #### [place] [address] USATroponin I High Sensitivityon 89-94-1884Kbkkcacd I High Jmtjkyqobsd316Enu scale high0-20The [facility] Physician GroupComment on above: Result Comment: Critical Result : Called to and read back by: MAC BECERRA at: 12/23/2024 06:03:32 by:ALAN The Troponin units of report have been changed to meet the Chest Pain Accreditation requirement, element EC5.M1l2. Troponin units are changed from pg/ml to ng/L. Also, the decimal is removed and results are in whole numbers. PERFORMED BY: [place] [address] PATHOLOGIST BULL CHAIN OPERATOR CARLOS BIRMINGHAM M.D.Performed By: #### HEPACUTE, HBCAB, HBSAB #### [facility] ,Troponin I High Nctfwylulql292Djd scale high0-20The [facility] Comment on above:Result Comment: Critical Result : Called to and read back by: MAC BECERRA at: 12/23/2024 04:28:13 by:ALAN The Troponin units of report have been changed to meet the Chest Pain Accreditation requirement, element EC5.M1l2. Troponin units are changed from pg/ml to ng/L. Also, the decimal is removed and results are in whole numbers. PERFORMED BY: [place] [address] PATHOLOGIST BULL CHAIN OPERATOR CARLOS BIRMINGHAM M.D.Performed By: #### RENAL, MG #### [place] [address] USAType and Screenon 64-68-2354MBY and Rh group Nom (Bld) Blood group A Rh(D) positiveNoAtrium Health Steele Creek Physician GroupUS renal BIon 40-05-4495HL renal [facility] Main [place] [address] [place] [address] Ultrasound Report Signed Patient: Rashard Lyman MR#: [id number] : 1960 Acct:[id number] Age/Sex: 64 / M ADM Date: 12/23/24 Loc: Room: [address] [place] [address] Type: ADM IN Attending Dr: Leno Dela [...] Jr., D.O. 12/23/2024 3:36 PM Dictation Location: [place] [address] Tech: Diana Bernard Transcribed By: [facility] 12/23/24 153 Dictated By: Clayton Cuevas Jr, DO 12/23/24 153 Signed By: 12/23/24 1536[facility] Physician GroupNo Panel InformationOrdered By: Chino Elliott on 88-51-5422Lkyhqdrepemwy Pathology TestSee commentPaulding County HospitalComment on above:See report. Scanned copy available in EMR.Pathology Request for Lab Corpon 92-14-8139Gckchwsit Request for Lab Truman NormalThe [facility] Physician GroupComment on above:Order Comment: RIGHT FOREFOOTResult Comment: See report. Scanned copy available in EMR. PERFORMED BY: [facility] [address] [place] [address] PATHOLOGIST BULL CHAIN OPERATOR CARLOS BIRMINGHAM M.D.Performed By: #### GLULS #### Point of Care testing ,No Panel InformationOrdered By: Chino Elliott on 06-14-6621Wdqyzeydggdey Pathology TestSee commentPaulding County HospitalComment on above:See report. Scanned copy available in EMR.Pathology Request for Lab Corpon 06-05-0959Rcoxqrumi Request for Lab CorpNoAtrium Health [facility] Physician Group Comment on above:Order Comment: RIGHT HALLUXResult Comment: See report. Scanned copy available in EMR. PERFORMED BY: [facility] [address] [place] [address] PATHOLOGIST BULL CHAIN OPERATOR NIMA MCCLELLAN M.D.Performed By: #### HEPACUTE, HBCAB, HBSAB #### [facility] ,BLOOD UREA NITROGENon 61-76-4915Xiqc nitrogen [Mass/Vol]40 mg/dLHigh5-27 [facility] Medical CenterComment on above:Performed By: #### ELEC, 3094-0, CHIEF RISK OFFICER, 71047-9 #### [facility] ([id number]) [address] [place] [address] 37595 #### 04846-4, HA1C #### [facility] ([id number]) [address] [place] [address], [address] [place], [place] [address]CDK AND AUTO DIFFon 56-53-4301NVFGMLFN BASOPHIL0.0 X10E9/LNormal 0.0-0.2ProMedEl Camino HospitalComment on above:Performed By: #### UA #### [facility] ([id number]) [address] [place] [address] 84023YFSZHGTW NEUTROPHIL5.2 X10E9/LNormal1.5-6.6ProHca Houston Healthcare MainlandComment on above:Performed By: #### UA #### [facility] ([id number]) [address] [place] [address] 29276Vkdlzymjs/100 WBC (Bld)0.6 %[facility] Comment on above:Performed By: #### UA #### [facility] ([id number]) [address] [place] [address] 64048Uaevuvmtysv (Bld) [#/Vol]0.6 10*3/uLHigh0.0-0.4[facility] Memorial HospitalComment on above:Performed By: #### UA #### [facility] ([id number]) [address] [place] [address] 99900Nrkzmotzhdx/100 WBC (Bld)6.5 %[facility] Comment on above:Performed By: #### UA #### [facility] ([id number]) [address] [place] [address] 00806Gihtransgtg distribution width (RBC) [Ratio]14.2 %Normal 11.5-15.0[facility] Memorial HospitalComment on above:Performed By: #### UA #### [facility] ([id number]) [address] [place] [address] 54494Pcpzrhqciq (Bld) [Volume fraction]37.5 %Ryi79-51GwlZewnexHca Houston Healthcare MainlandComment on above:Performed By: #### UA #### [facility] ([id number]) [address] [place] [address] 21968Yddpguvhht (Bld) [Mass/Vol]12.3 g/dLLow13.0-17.0[facility] Memorial HospitalComment on above:Performed By: #### UA #### [facility] ([id number]) [address] [place] [address] 28070Fcipqjyoawd (Bld) [#/Vol]1.9 10*3/uLNormal1.0-3.5POhioHealth Dublin Methodist HospitalComment on above:Performed By: #### UA #### [facility] ([id number]) [address] [place] [address] 62131Jcutckpmyql/100 WBC (Bld)21.4 %NormalFayette County Memorial Hospital Comment on above:Performed By: #### UA #### [facility] ([id number]) [address] [place] [address] 34290EDY (RBC) [Entitic mass]29.3 mdMdkaoc15-27YqyOpcrdcHca Houston Healthcare MainlandComment on above:Performed By: #### UA #### [facility] ([id number]) [address] [place] [address] 45728MAUS (RBC) [Mass/Vol]32.7 g/mRIosndx87-54WpuCiglreHca Houston Healthcare MainlandComment on above:Performed By: #### UA #### [facility] ([id number]) [address] [place] [address] 49433DUO (RBC) [Entitic vol]90 bSVynzwj74-889IspNweuexFayette County Memorial HospitalComment on above:Performed By: #### UA #### [facility] ([id number]) [address] [place] [address] 65800Juolhfceb (Bld) [#/Vol]1.1 10*3/uLHigh0-0.9[facility] Memorial HospitalComment on above:Performed By: #### UA #### [facility] ([id number]) [address] [place] [address] 05064Aptyhkhnv/100 WBC (Bld)12.8 %NormalFayette County Memorial Hospital Comment on above:Performed By: #### UA #### [facility] ([id number]) [address] [place] [address] 03847Aohjeriyyru/100 WBC (Bld)58.7 %[facility] Comment on above:Performed By: #### UA #### [facility] ([id number]) [address] [place] [address] 61709Eehvsscz mean volume (Bld) [Entitic vol]6.6 fLLow7-12Pro[facility] Hospital And Medical CenterComment on above:Performed By: #### UA #### [facility] ([id number]) [address] [place] [address] 90566Hcpowzrcu (Bld) [#/Vol]281 10*3/rNAyjdqp643-096NqsIjqghy [facility]remont HospitalComment on above:Performed By: #### UA #### [facility] ([id number]) [address] [place] [address] 48123UQH COUNT4.19 X10E12/LNormal4.10-5.70[facility] Comment on above:Performed By: #### UA #### [facility] ([id number]) [address] [place] [address] 82013CGF (Bld) [#/Vol]8.8 10*3/uLNormal4.0-11.0[facility] HospitalComment on above:Performed By: #### UA #### [facility] ([id number]) [address] [place] [address] 82546MVXSJUAIFKzd 98-54-4146Fjisaubbmb [Mass/Vol]3.74 mg/dLHigh 0.70-1.20ProHca Houston Healthcare MainlandComment on above:Result Comment: METHOD TRACEABLE TO IDMS STANDARDPerformed By: #### PHIL, 3094-0, CHIEF RISK OFFICER, 55442-0 #### [facility] ([id number]) [address] [place] [address] 20415 #### 33290-2, HA1C #### [facility] ([id number]) [address] [facility], [address] [place], [place] [address]XOC/1.73 sq M.predicted among non-blacks MDRD (S/P/Bld) [Vol rate/Area]17 mL/min/{1.73_m2}Low>59ProHca Houston Healthcare MainlandComment on above: Result Comment: Reported eGFR is based on the CKD-EPI 2020 equation that does not use a race coefficient.Performed By: #### PHIL, 3094-0, CHIEF RISK OFFICER, 90134-3 #### [facility] ([id number]) [address] [place] [address] 90606 #### 94613-8, HA1C #### [facility] ([id number]) [address] [facility], [address] [place], [place] [address]DRRQPJZHVHLNvd 88-96-1816Iyzky gap [Moles/Vol]8 mmol/LNormal5-15 ProMLucile Salter Pack[facility] Children's Hospital at StanfordComment on above:Performed By: #### PHIL, 3094-0, CHIEF RISK OFFICER, 69471-0 #### [facility] ([id number]) [address] [place] [address] 59089 #### 72127-8, HA1C #### [facility] ([id number]) [address], [address] [place], [place] [address]Etvdbwjv [Moles/Vol]106 mmol/WPdmjyi25-600YgmQelbhqHca Houston Healthcare MainlandComment on above:Performed By: #### ELEC, 3094-0, CHIEF RISK OFFICER, 12847-9 #### [facility] ([id number]) [address] [place] [address] 76593 #### 18764-3, HA1C #### [facility] ([id number]) [address], [address] [place], [place] [address]KW3 [Moles/Vol]21 mmol/TRde83-74EkqRcssqtOhioHealth Dublin Methodist Hospital Comment on above:Performed By: #### ELEC, 3094-0, CHIEF RISK OFFICER, 70329-7 #### [facility] ([id number]) [address] [place] [address] 69879 #### 45238-7, HA1C #### [facility] ([id number]) [address], [address] [place], [place] [address]Wycyitufr [Moles/Vol]5.2 mmol/LHigh3.5-5.0ProHca [facility] Healthcare MainlandComment on above:Performed By: #### ELEC, 3094-0, CHIEF RISK OFFICER, 51842-1 #### [facility] ([id number]) [address] [place] [address] 66266 #### 59665-3, HA1C #### [facility] ([id number]) [address], [address] [place], [place] [address]Twdhrr [Moles/Vol]135 mmol/ETxride340-963GdsDuigdf [facility] HospitalComment on above:Performed By: #### ELEC, 3094-0, CHIEF RISK OFFICER, 62988-4 #### [facility] ([id number]) [address] [place] [address] 90015 #### 27177-9, HA1C #### [facility] ([id number]) [address] [facility], [address] [place], [place] [address]GVRAC UREA NITROGENon 81-62-7300Epfh nitrogen [Mass/Vol]50 mg/dL High5-27ProHca [facility] Healthcare MainlandComment on above:Performed By: #### UA #### [facility] ([id number]) [address] [place] [address] 59731BVGBOBAqu 33-12-0578Guguxqp [Mass/Vol]8.7 mg/dLNormal8.5-10.5 [facility] And Medical CenterComment on above:Performed By: #### MATTY CBCA, 1987-08, 00843-7 #### [facility] ([id number]) [address] [place] [address] 61392 #### 48908-1 #### [facility] ([id number]) [address] [facility], [address] [place], [place] [address]IJR AND AUTO DIFFon 15-99-3168GZJVQUPW BASOPHIL0.1 X10E9/LNormal 0.0-0.2ProMedEl Camino HospitalComment on above:Performed By: #### MATTY, CBCA, 1987-08, 63853-0 #### [facility] ([id number]) [address] [place] [address] 46966 #### 63845-7 #### [facility] ([id number]) [address] [facility], [address] [place], [place] [address]YCUXTBIK NEUTROPHIL6.0 X10E9/LNormal1.5-6.6ProHca [facility] Healthcare MainlandComment on above:Performed By: #### MATTY CBCA, 1987-08, #### [facility] ([id number]) [address] [place] [address] 27532 #### 22975-4 #### [facility] ([id number]) [address], [address] [place], [place] [address]Khuwfeshw/100 WBC (Bld)0.6 %NormalFayette County Memorial Hospital Comment on above:Performed By: #### MATTY CBCA, 1987-08, #### [facility] ([id number]) [address] [place] [address] 15126 #### 22044-2 #### [facility] ([id number]) [address] [facility], [address] [place], [place] [address]Dwgqmboaupc (Bld) [#/Vol]0.3 10*3/uLNormal0.0-0.4[facility] HospitalComment on above:Performed By: #### MATTY CBCA, 1987-08, #### [facility] ([id number]) [address] [place] [address] 51890 #### 50132-0 #### [facility] ([id number]) [address] [facility], [address] [place], [place] [address]Ybddyyhtxen/100 WBC (Bld)3.1 %[facility] Comment on above:Performed By: #### MATTY, CBCA, 1987-08, #### [facility] ([id number]) [address] [place] [address] 73621 #### 99557-4 #### [facility] ([id number]) [address], [address] [place], [place] [address]Dsykovshrtx distribution width (RBC) [Ratio]13.5 %Normal 11.5-15.0ProHca [facility] Healthcare MainlandComment on above:Performed By: #### JAMES STARR, 1987-08, #### [facility] ([id number]) [address] [place] [address] 31780 #### 50355-4 #### [facility] ([id number]) [address], [address] [place], [place] [address]Sufqhijjlj (Bld) [Volume fraction]36.1 %Shv60-18YxqUfkodcHca Houston Healthcare MainlandComment on above:Performed By: #### JAMES STARR, 1987-08, #### [facility] ([id number]) [address] [place] [address] 36165 #### 92599-7 #### [facility] ([id number]) [address], [address] [place], [place] [address]Hhvypdeahe (Bld) [Mass/Vol]11.8 g/dLLow13.0-17.0[facility] HospitalComment on above:Performed By: #### JAMES STARR, 1987-08, #### [facility] ([id number]) [address] [place] [address] 26235 #### 53142-8 #### [facility] ([id number]) [address], [address] [place], [place] [address]Ibctcotslyw (Bld) [#/Vol]2.0 10*3/uLNormal1.0-3.5POhioHealth Dublin Methodist HospitalComment on above:Performed By: #### JAMES STARR, 1987-08, 73354-7 #### [facility] ([id number]) [address] [place] [address] 21040 #### 78792-3 #### [facility] ([id number]) [address], [address] [place], [place] [address]Powrcvidgzn/100 WBC (Bld)20.7 %NormalFayette County Memorial Hospital Comment on above:Performed By: #### JAMES STARR, 1987-08, 12054-9 #### [facility] ([id number]) [address] [place] [address] 71890 #### 27037-5 #### [facility] ([id number]) [address] [facility], [address] [place], [place] [address]PAO (RBC) [Entitic mass]29.1 kiGpsvib56-76OkvNdaeyjHca Houston Healthcare MainlandComment on above:Performed By: #### JAMES STARR, 1987-08, #### [facility] ([id number]) [address] [place] [address] 84455 #### 13708-1 #### [facility] ([id number]) [address] [facility], [address] [place], [place] [address]MYJI (RBC) [Mass/Vol]32.8 g/pXKufjqh26-40LqsCdvhxmHca Houston Healthcare MainlandComment on above:Performed By: #### JAMES STARR, 1987-08, #### [facility] ([id number]) [address] [place] [address] 70485 #### 08183-4 #### [facility] ([id number]) [address] [facility], [address] [place], [place] [address]DXE (RBC) [Entitic vol]89 rKSimmyv63-460SzpMtmorg [facility]ont HospitalComment on above:Performed By: #### JAMES STARR, 1987-08, #### [facility] ([id number]) [address] [place] [address] 88255 #### 53279-1 #### [facility] ([id number]) [address] [facility], [address] [place], [place] [address]Rszuntgnz (Bld) [#/Vol]1.2 10*3/uLHigh0-0.9ProHca Houston Healthcare MainlandComment on above:Performed By: #### MATTY CBCA, 1987-08, #### [facility] ([id number]) [address] [place] [address] 84880 #### 28696-2 #### [facility] ([id number]) [address] [facility], [address] [place], [place] [address]Avlwpqxnj/100 WBC (Bld)12.3 %NormalFayette County Memorial Hospital Comment on above:Performed By: #### MATTY CBCA, 1987-08, #### [facility] ([id number]) [address] [place] [address] 87003 #### 80016-5 #### [facility] ([id number]) [address] [facility], [address] [place], [place] [address]Ugolkmtkdlc/100 WBC (Bld)63.3 %NormalFayette County Memorial Hospital Comment on above:Performed By: #### MATTY CBCA, 1987-08, #### [facility] ([id number]) [address] [place] [address] 31091 #### 60884-0 #### [facility] ([id number]) [address] [facility], [address] [place], [place] [address]Ipncrrhp mean volume (Bld) [Entitic vol]7.7 fLNormal7-12 [facility] Hospital And Medical CenterComment on above:Performed By: #### MATTY CBCA, 1987-08, #### [facility] ([id number]) [address] [place] [address] 99670 #### 33646-9 #### [facility] ([id number]) [address] [facility], [address] [place], [place] [address]Mwhnyrnls (Bld) [#/Vol]264 10*3/nACxymwe675-845RojAauzer [facility]remont HospitalComment on above:Performed By: #### JAMES STARR, 1987-08, 12596-9 #### [facility] ([id number]) [address] [place] [address] 65308 #### 91328-5 #### [facility] ([id number]) [address] [place] [address], [address] [place], [place] [address]PNV COUNT4.07 X10E12/LLow4.10-5.70[facility] Comment on above:Performed By: #### JAMES STARR, 1987-08, 33624-2 #### [facility] ([id number]) [address] [place] [address] 07548 #### 21454-6 #### [facility] ([id number]) [address] [facility], [address] [place], [place] [address]HAV (Bld) [#/Vol]9.4 10*3/uLNormal4.0-11.0ProHca Houston Healthcare MainlandComment on above:Performed By: #### JAMES STARR, 1987-08, 22445-0 #### [facility] ([id number]) [address] [place] [address] 75244 #### 44934-6 #### [facility] ([id number]) [address] [place] [address], [address] [place], [place] [address]YCJLLWWBKAqm 07-96-7617Pebnmrgfgy [Mass/Vol]3.14 mg/dLHigh 0.70-1.20ProHca Houston Healthcare MainlandComment on above:Result Comment: METHOD TRACEABLE TO IDMS STANDARDPerformed By: #### UA #### [facility] ([id number]) [address] [place] [address] 79341CLN/1.73 sq M.predicted among non-blacks MDRD (S/P/Bld) [Vol rate/Area]21 mL/min/{1.73_m2}Low>59ProHca Houston Healthcare MainlandComment on above: Result Comment: Reported eGFR is based on the CKD-EPI 2020 equation that does not use a race coefficient.Performed By: #### UA #### [facility] ([id number]) [address] [place] [address], [place] [address]LESNQRSKRLPMgc 94-45-6837Lzbpn gap [Moles/Vol]8 mmol/LNormal 5-15ProHca [facility] Healthcare MainlandComment on above:Performed By: #### UA #### [facility] ([id number]) [address] [place] [address], [place] [address]Ymjxxtje [Moles/Vol]104 mmol/EJdfsxq33-946IktDhmiurHca Houston Healthcare MainlandComment on above:Performed By: #### UA #### [facility] ([id number]) [address] [place] [address], [place] [address]MG[address] [Moles/Vol]19 mmol/CEoe88-05FysPobnihOhioHealth Dublin Methodist Hospital Comment on above:Performed By: #### UA #### [facility] ([id number]) [address] [place] [address] 12173Miwkqukqb [Moles/Vol]4.9 mmol/LNormal3.5-5.0[facility] HospitalComment on above:Performed By: #### UA #### [facility] ([id number]) [address] [place] [address], [place] [address]Rxszpn [Moles/Vol]131 mmol/GQzc591-866IloNlififHca Houston Healthcare MainlandComment on above:Performed By: #### UA #### [facility] ([id number]) [address] [place] [address] 18194IOJ Photometric method (Bld) [Velocity]on 41-67-3491FYS, ERYTHROCYTE SEDIMENTATION RATE98 mm/hHigh0-20[facility] HospitalComment on above:Performed By: #### UA #### [facility] ([id number]) [address] [place] [address] 46023LJM A1C (GLYCO-HGB)on 31-06-3353Ntvhbvn [Mass/Vol]289 mg/dL NormalProHca Houston Healthcare MainlandComment on above:Performed By: #### UA #### [facility] ([id number]) [address] [place] [address] 04630OzP5k (Bld) [Mass fraction]11.7 %High4.4-5.6F[facility] Memorial HospitalComment on above:Result Comment: NOTE ADA Guidelines Result HgbA1c Normal : less than 5.7 % Prediabetes : 5.7 % to 6.4 % Diabetes : > 6.4 % Use with caution in patients with abnormal hemoglobin variants as the half-life of red blood cells and in vivo glycation rates are affected.Performed By: #### UA #### [facility] ([id number]) [address] [place] [address] 95632CVPOL PANELon 98-61-5276Qrsqbim [Mass/Vol]2.9 g/dLLow3.2-5.3 ProMLucile Salter Packard Children's Hospital at StanfordComment on above:Performed By: #### UA #### [facility] ([id number]) [address] [place] [address] 63022WKL [Catalytic activity/Vol]79 U/STwszjc84-129DdjHqffavFayette County Memorial HospitalComment on above:Performed By: #### UA #### [facility] ([id number]) [address] [place] [address] 91572WYH [Catalytic activity/Vol]26 U/LNormal0-40ProHca Houston Healthcare MainlandComment on above:Performed By: #### UA #### [facility] ([id number]) [address] [place] [address] 82214GYV [Catalytic activity/Vol]19 U/LNormal0-41ProHca Houston Healthcare MainlandComment on above:Performed By: #### UA #### [facility] ([id number]) [address] [place] [address] 73608Rykshugik [Mass/Vol]0.5 mg/dLNormal0.3-1.2ProMedEl Camino HospitalComment on above:Performed By: #### UA #### [facility] [place] ([id number]) [address] [place] [address] 29183Fphaxlfxt.indirect [Mass/Vol]mg/dLNormal0.0-0.4ProHca Houston Healthcare MainlandComment on above:Performed By: #### UA #### [facility] ([id number]) [address] [place] [address] 24261Oftdqhb [Mass/Vol]6.9 g/dLNormal6.0-8.0ProHca Houston Healthcare MainlandComment on above:Performed By: #### UA #### [facility] ([id number]) [address] [place] [address] 26306Cxxox 1996 panelon 98-28-4786Nkpqordqrrr [Mass/Vol]136 mg/dLLow 150-200ProHca Houston Healthcare MainlandComment on above:Performed By: #### UA #### [facility] ([id number]) [address] [place] [address] 10402Dvioielbbfh in HDL [Mass/Vol]40 mg/dLNormal>39F[facility] County Memorial HospitalComment on above:Result Comment: HDL <40 mg/dL - High Risk HDL > or = 40mg/dL- Desirable HDL >60 mg/dL - Negative Risk Performed By: #### UA #### [facility] ([id number]) [address] [place] [address], [place] [address]Jisjcuusnif in LDL [Mass/Vol]62 mg/dLNormal<130ProHca Houston Healthcare MainlandComment on above:Result Comment: LDL <100 mg/dL - Desirable LDL >160 mg/dL - High Risk Performed By: #### UA #### [facility] ([id number]) [address] [place] [address] 48773Hyexxqgtuoq in VLDL [Mass/Vol]34 mg/dLHigh0-30ProHca Houston Healthcare MainlandComment on above:Performed By: #### UA #### [facility] ([id number]) [address] [place] [address] 34536XFDAFWLFZJH:HDL3.1Iyskjx1.0-5.0[facility] Comment on above:Performed By: #### UA #### [facility] ([id number]) [address] [place] [address] 36164Lelsdtgdttgd [Mass/Vol]172 mg/tQWzso06-018AcoTtoibtHca Houston Healthcare MainlandComment on above:Performed By: #### UA #### [facility] ([id number]) [address] [place] [address] 06714Vymabptihyl peptide B [Mass/Vol]on 24-28-2000Pgytjbhmcdl peptide B (Bld) [Mass/Vol]88 pg/mLNormal<100.0ProHca Houston Healthcare MainlandComment on above:Performed By: #### UA #### [facility] ([id number]) [address] [place] [address], [place] [address]Ayhzhhk D+Metabolites [Mass/Vol]on 52-29-4185YUQHMXA D 25 HYD TOT15.1 ng/kQRon48-023QorUncdkzHca Houston Healthcare MainlandComment on above:Result Comment: Vitamin D status 25 [place] Vitamin D Deficiency <20 ng/mL Insufficiency 20-29 ng/mL Sufficiency 30-100 ng/mL Toxicity >100 ng/mL NOTE: A pediatric reference range has not been established by the groundhand of this kit. The [place] [employer] recommends a Vitamin D level of = or >20ng/mL in infants and children.Performed By: #### UA #### [facility] ([id number]) [address] [place] [address] 68048JXSOM UREA NITROGENon 36-15-8116Qbvs nitrogen [Mass/Vol]50 mg/dLHigh5-27ProHca Houston Healthcare MainlandComment on above:Performed By: #### MATTY CBCA, 1987-08, 21657-1 #### [facility] ([id number]) [address] [place] [address] 87769 #### 99147-8 #### [facility] ([id number]) [address] [facility], [address] [place], [place] [address]PXC AND AUTO DIFFon 41-70-2261BGVYUUYU BASOPHIL0.0 X10E9/LNormal 0.0-0.2ProMed[facility] Hospital And Medical CenterComment on above:Performed By: #### MATTY, CBCA, 1987-08, 32829-4 #### [facility] ([id number]) [address] [place] [address] 42748 #### 93251-2 #### [facility] ([id number]) [address] [facility] [address], [address] [place], [place] [address]MTBITESA NEUTROPHIL5.7 X10E9/LNormal1.5-6.6ProThe Surgical Hospital At Southwoods HospitalComment on above:Performed By: #### MATTY, CBCA, 1987-08, 92191-8 #### [facility] ([id number]) [address] [place] [address] 34195 #### 08218-6 #### [facility] ([id number]) [address], [address] [place], [place] [address]Qthyjlxlo/100 WBC (Bld)0.4 %[facility] Comment on above:Performed By: #### MATTY CBCA, 1987-08, 02492-9 #### [facility] ([id number]) [address] [place] [address] 23836 #### 20779-2 #### [facility] ([id number]) [address], [address] [place], [place] [address]Rtliofxafsv (Bld) [#/Vol]0.4 10*3/uLNormal0.0-0.4F[facility] Memorial HospitalComment on above:Performed By: #### JAMES STARR, 1987-08, 94325-0 #### [facility] ([id number]) [address] [place] [address] 70563 #### 63969-4 #### [facility] ([id number]) [address], [address] [place], [place] [address]Neatgkbmzik/100 WBC (Bld)4.8 %[facility] Comment on above:Performed By: #### MATTY CBCA, 1987-08, 56369-9 #### [facility] ([id number]) [address] [place] [address] 08363 #### 07097-7 #### [facility] ([id number]) [address], [address] [place], [place] [address]Agtysikwbev distribution width (RBC) [Ratio]14.7 %Normal 11.5-15.0F[facility] County Memorial HospitalComment on above:Performed By: #### JAMES STARR, 1987-08, 98633-1 #### [facility] ([id number]) [address] [place] [address] 61934 #### 87057-7 #### [facility] ([id number]) [address] [facility] [address], [address] [place], [place] [address]Tzmhhxyqpm (Bld) [Volume fraction]39.0 %Qjjrsp39-08UplNqirwvHca Houston Healthcare MainlandComment on above:Performed By: #### JAMES STARR, 1987-08, #### [facility] ([id number]) [address] [place] [address] 62118 #### 51527-8 #### [facility] ([id number]) [address] [facility] [address], [address] [place], [place] [address]Bqafjrlned (Bld) [Mass/Vol]13.3 g/xVPoznqk19.0-17.0ProHca Houston Healthcare MainlandComment on above:Performed By: #### JAMES STARR, 1987-08, 42573-3 #### [facility] ([id number]) [address] [place] [address] 82883 #### 02056-6 #### [facility] ([id number]) [address] [facility], [address] [place], [place] [address]Boyqrenjznh (Bld) [#/Vol]1.7 10*3/uLNormal1.0-3.5POhioHealth Dublin Methodist HospitalComment on above:Performed By: #### JAMES STARR, 1987-08, 01080-4 #### [facility] ([id number]) [address] [place] [address] 07937 #### 93139-4 #### [facility] ([id number]) [address] [facility], [address] [place], [place] [address]Fpbuwqqugqk/100 WBC (Bld)19.3 %NormalFayette County Memorial Hospital Comment on above:Performed By: #### JAMES STARR, 1987-08, 88519-6 #### [facility] ([id number]) [address] [place] [address] 42945 #### 42134-0 #### [facility] ([id number]) [address] [facility], [address] [place], [place] [address]XGX (RBC) [Entitic mass]29.8 drGotidm15-40BacYgkoocHca Houston Healthcare MainlandComment on above:Performed By: #### JAMES STARR, 1987-08, #### [facility] ([id number]) [address] [place] [address] 85813 #### 06055-2 #### [facility] ([id number]) [address] [facility], [address] [place], [place] [address]ZTRH (RBC) [Mass/Vol]34.0 g/uANhzxsg26-81AlfCmqkxgHca Houston Healthcare MainlandComment on above:Performed By: #### JAMES STARR, 1987-08, #### [facility] ([id number]) [address] [place] [address] 83114 #### 94984-2 #### [facility] ([id number]) [address] [facility] [address], [address] [place], [place] [address]CWZ (RBC) [Entitic vol]88 oZCyfvcs37-007PuoEzhvvw [facility]remont HospitalComment on above:Performed By: #### JAMES STARR, 1987-08, #### [facility] ([id number]) [address] [place] [address] 16835 #### 96918-2 #### [facility] ([id number]) [address], [address] [place], [place] [address]Xmzgduffi (Bld) [#/Vol]0.8 10*3/uLNormal0-0.9ProHca Houston Healthcare MainlandComment on above:Performed By: #### MATTY, CBCA, 1987-08, #### [facility] ([id number]) [address] [place] [address] 84779 #### 09661-4 #### [facility] ([id number]) [address] [facility] [address], [address] [place], [place] [address]Srwdpozgo/100 WBC (Bld)8.8 %[facility] Comment on above:Performed By: #### SEVEN STARRA, 1987-08, #### [facility] ([id number]) [address] [place] [address] 92458 #### 49723-9 #### [facility] ([id number]) [address] [address], [address] [place], [place] [address]Nvidqvnajzf/100 WBC (Bld)66.7 %[facility] Comment on above:Performed By: #### MATTY CBCA, 1987-08, 45686-1 #### [facility] ([id number]) [address] [place] [address] 57310 #### 59361-9 #### [facility] ([id number]) [address] [address], [address] [place], [place] [address]Pikgjnkc mean volume (Bld) [Entitic vol]7.7 fLNormal7-12 Pro[facility] And Medical CenterComment on above:Performed By: #### MATTY, CBCA, 1987-08, #### [facility] ([id number]) [address] [place] [address] 26336 #### 83138-2 #### [facility] ([id number]) [address] [address], [address] [place], [place] [address]Pelrghexv (Bld) [#/Vol]286 10*3/nSFkmohs525-155FxoXmedty [facility] HospitalComment on above:Performed By: #### JAMES STARR, 1987-08, 22070-2 #### [facility] ([id number]) [address] [place] [address] 09041 #### 56074-7 #### [facility] ([id number]) [address] [facility], [address] [place], [place] [address]SWV COUNT4.46 X10E12/LNormal4.10-5.70[facility] Comment on above:Performed By: #### JAMES STARR, 1987-08, 57414-2 #### [facility] ([id number]) [address] [place] [address] 19306 #### 70129-6 #### [facility] ([id number]) [address] [place] [address], [address] [place], [place] [address]YEO (Bld) [#/Vol]8.6 10*3/uLNormal4.0-11.0ProHca Houston Healthcare MainlandComment on above:Performed By: #### JAMES STARR, 1987-08, 27675-5 #### [facility] ([id number]) [address] [place] [address] 89325 #### 41608-8 #### [facility] ([id number]) [address] [facility], [address] [place], [place] [address]RDJVBRQERArx 41-49-0983Klsgvmnufc [Mass/Vol]3.32 mg/dLHigh 0.70-1.20ProHca Houston Healthcare MainlandComment on above:Result Comment: METHOD TRACEABLE TO IDMS STANDARDPerformed By: #### JAMES STARR, 1987-08, 86050-6 #### [facility] ([id number]) [address] [place] [address] 88693 #### 12122-7 #### [facility] ([id number]) [address] [address], [address] [place], [place] [address]FCB/1.73 sq M.predicted among non-blacks MDRD (S/P/Bld) [Vol rate/Area]20 mL/min/{1.73_m2}Low>59ProHca Houston Healthcare MainlandComment on above: Result Comment: Reported eGFR is based on the CKD-EPI 2020 equation that does not use a race coefficient.Performed By: #### JAMES STARR, 1987-08, 37096-7 #### [facility] ([id number]) [address] [place] [address] 16033 #### 69414-4 #### [facility] ([id number]) [address] [facility] [address], [address] [place], [place] [address]OTCODFFNICKWka 89-39-7869Iwlfq gap [Moles/Vol]8 mmol/LNormal5-15 [facility] And Medical CenterComment on above:Performed By: #### JAMES STARR, 1987-08, 20907-1 #### [facility] ([id number]) [address] [place] [address] 55070 #### 37269-6 #### [facility] ([id number]) [address] [address], [address] [place], [place] [address]Eoawjqmg [Moles/Vol]103 mmol/CNexcue28-750FlfRuykfyHca Houston Healthcare MainlandComment on above:Performed By: #### JAMES STARR, 1987-08, 84655-0 #### [facility] ([id number]) [address] [place] [address] 26849 #### 58779-5 #### [facility] ([id number]) [address], [address] [place], [place] [address]DV5 [Moles/Vol]18 mmol/ONzd88-13KdlTswecjOhioHealth Dublin Methodist Hospital Comment on above:Performed By: #### JAMES STARR, 1987-08, 55234-5 #### [facility] ([id number]) [address] [place] [address] 39631 #### 80248-1 #### [facility] ([id number]) [address], [address] [place], [place] [address]Esldnvovr [Moles/Vol]4.5 mmol/LNormal3.5-5.0ProHca Houston Healthcare MainlandComment on above:Performed By: #### JAMES STARR, 1987-08, 67715-7 #### [facility] ([id number]) [address] [place] [address] 38734 #### 82483-6 #### [facility] ([id number]) [address], [address] [place], [place] [address]Ljugxm [Moles/Vol]129 mmol/OVdk768-233TncDzyeulFayette County Memorial Hospital Comment on above:Performed By: #### JAMES STARR, 1987-08, 01195-5 #### [facility] ([id number]) [address] [place] [address] 00636 #### 49736-5 #### [facility] ([id number]) [address], [address] [place], [place] [address]KDNTC UREA NITROGENon 16-06-1096Hmvm nitrogen [Mass/Vol]41 mg/dL High5-27ProGlenbeigh HospitalComment on above:Performed By: #### JAMES, 3094- 0, CHIEF RISK OFFICER, ELEC #### [facility] ([id number]) [address], [address] [place], [place] [address]ZWV AND AUTO DIFFon 07-42-3182WFPNWNLA BASOPHIL0.2 X10E9/LNormal 0.0-0.2PUniversity Hospitals Elyria Medical CenterComment on above:Performed By: #### JAMES 3094- 0, CHIEF RISK OFFICER, ELEC #### [facility] ([id number]) [address], [address] [place], [place] [address]Loidvnabh/100 WBC (Bld)1.9 %NormalParkview Health Bryan Hospital Comment on above:Performed By: #### JAMES 309-0, CHIEF RISK OFFICER, ELEC #### [facility] ([id number]) [address], [address] [place], [place] [address]QFGY6+AbnormalNONEPUniversity Hospitals Elyria Medical CenterComment on above: Performed By: #### JAMES 309-0, CHIEF RISK OFFICER, ELEC #### [facility] ([id number]) [address], [address] [place], [place] [address]Ackmurmrgmv (Bld) [#/Vol]0.4 10*3/uLNormal0.0-0.4ProGlenbeigh HospitalComment on above:Performed By: #### JAMES 309-0, CHIEF RISK OFFICER, ELEC #### [facility] ([id number]) [address], [address] [place], [place] [address]Xvszxrovzlt/100 WBC (Bld)3.8 %NormalParkview Health Bryan Hospital Comment on above:Performed By: #### JAMES 309-0, CHIEF RISK OFFICER, ELEC #### [facility] ([id number]) [address], [address] [place], [place] [address]Xgfpeuenond distribution width (RBC) [Ratio]14.4 %Normal 11.5-15.0ProGlenbeigh HospitalComment on above:Performed By: #### JAMES, 3094-0, CHIEF RISK OFFICER, ELEC #### [facility] ([id number]) [address], [address] [place], [place] [address]Cgfwpztyzk (Bld) [Volume fraction]40.3 %Mkcxfe28-16SdjHtbqas [facility] HospitalComment on above:Performed By: #### CBCA, 3094-0, CHIEF RISK OFFICER, ELEC #### [facility] ([id number]) [address], [address] [place], [place] [address]Rjnroveoxk (Bld) [Mass/Vol]13.4 g/rMBzfcez63.0-17.0ProMercy Health West Hospitalca [facility]tec HospitalComment on above:Performed By: #### CBCA, 3094-0, CHIEF RISK OFFICER, ELEC #### [facility] ([id number]) [address], [facility] [address] [place], [place] [address]Qxbkeyvzweu (Bld) [#/Vol]2.0 10*3/uLNormal1.0-3.5ProMedica [facility] HospitalComment on above:Performed By: #### CBCA, 3094-0, CHIEF RISK OFFICER, ELEC #### [facility] ([id number]) [address], [address] [place], [place] [address]Zoveydschbx/100 WBC (Bld)21.7 %NormalProMetrohealth [facility] Hospital Comment on above:Performed By: #### CBCA, 3094-0, CHIEF RISK OFFICER, ELEC #### [facility] ([id number]) [address], [facility] [address] [place], [place] [address]SSM (RBC) [Entitic mass]29.6 avCmsoow66-21SqyPecosu [place] HospitalComment on above:Performed By: #### CBCA, 3094-0, CHIEF RISK OFFICER, ELEC #### [facility] ([id number]) [address], [address] [place], [place] [address]GBKV (RBC) [Mass/Vol]33.4 g/wOCppssk31-75UtiXmmkxm [facility] HospitalComment on above:Performed By: #### CBCA, 3094-0, CHIEF RISK OFFICER, ELEC #### [facility] ([id number]) [address], [address] [place], [place] [address]UJY (RBC) [Entitic vol]89 mYYmdhlr21-911VwvMqwvtf [facility] HospitalComment on above:Performed By: #### JAMES, 3094-0, CHIEF RISK OFFICER, ELEC #### [facility] ([id number]) [address], [address] [place], [place] [address]Lnjwtlpei (Bld) [#/Vol]0.6 10*3/uLNormal0-0.9ProMedica [facility] HospitalComment on above:Performed By: #### JAMES, 3094-0, CHIEF RISK OFFICER, ELEC #### [facility] ([id number]) [address], [address] [place], [place] [address]Pxnuqftcv/100 WBC (Bld)6.6 %NormalProMetrohealth [facility] Hospital Comment on above:Performed By: #### JAMES, 3094-0, CHIEF RISK OFFICER, ELEC #### [facility] ([id number]) [address], [address] [place], [place] [address]Eauwyanbgpl (Bld) [#/Vol]6.1 10*3/uLNormal1.5-6.6ProMercy Health West Hospitalca [facility] HospitalComment on above:Performed By: #### JAMES, 3094-0, CHIEF RISK OFFICER, ELEC #### [facility] ([id number]) [address], [address] [place], [place] [address]Svswtcyt mean volume (Bld) [Entitic vol]8.0 fLNormal7-12 [facility] HospitalComment on above:Performed By: #### CBCJarrett, 3094-0, CHIEF RISK OFFICER, ELEC #### [facility] ([id number]) [address], [address] [place], [place] [address]Dvsedyysr (Bld) [#/Vol]253 10*3/hPSeuoel571-327YmcHuqfqn [facility] HospitalComment on above:Performed By: #### CBCJarrett, 3094-0, CHIEF RISK OFFICER, ELEC #### [facility] ([id number]) [address] [address] [place] [address]SDH COUNT4.54 X10E12/LNormal4.10-5.70[facility] Comment on above:Performed By: #### JAMES, 3094-0, CHIEF RISK OFFICER, ELEC #### [facility] ([id number]) [address] [address]RTF BCZAKCSTLR57.0 %NormalProMetrohealth Cleveland Heights Medical Center HospitalComment on above:Performed By: #### JAMES, 3094-0, CHIEF RISK OFFICER, ELEC #### [facility] ([id number]) [address] [address]UAB (Bld) [#/Vol]9.3 10*3/uLNormal4.0-11.0ProGlenbeigh HospitalComment on above:Performed By: #### JAMES, 3094-0, CHIEF RISK OFFICER, ELEC #### [facility] ([id number]) [address] [address]QBUBJQHUFIrz 36-96-7524Awygtpzwyh [Mass/Vol]3.18 mg/dLHigh 0.60-1.30Parkview Health Bryan HospitalComment on above:Result Comment: METHOD TRACEABLE TO IDMS STANDARDPerformed By: #### JAMES, 3094-0, CHIEF RISK OFFICER, ELEC #### [facility] ([id number]) [address] [address]AGE/1.73 sq M.predicted among non-blacks MDRD (S/P/Bld) [Vol rate/Area]21 mL/min/{1.73_m2}Low>59ProGlenbeigh HospitalComment on above: Result Comment: Reported eGFR is based on the CKD-EPI 2020 equation that does not use a race coefficient.Performed By: #### JAMES, 3094-0, CHIEF RISK OFFICER, ELEC #### [facility] ([id number]) [address] [facility] [address] [place], [place] [address]MEKCYZYJXBZRfl 73-04-2376Anqec gap [Moles/Vol]9 mmol/LNormal5-15 [facility] HospitalComment on above:Performed By: #### JAMES, 3094-0, CHIEF RISK OFFICER, ELEC #### [facility] ([id number]) [address], [address] [place], [place] [address]Joatbhwv [Moles/Vol]100 mmol/BWdfomo21-526BtxAesxxg [facility] HospitalComment on above:Performed By: #### JAMES, 3094-0, CHIEF RISK OFFICER, ELEC #### [facility] ([id number]) [address], [address] [place], [place] [address]SU8 [Moles/Vol]22 mmol/EIquftw20-68TqcBzddjm [facility] Comment on above:Performed By: #### JAMES, 3094-0, CHIEF RISK OFFICER, ELEC #### [facility] ([id number]) [address], [address] [place], [place] [address]Auptytpfs [Moles/Vol]3.9 mmol/LNormal3.5-5.0ProGlenbeigh HospitalComment on above:Performed By: #### JAMES, 3094-0, CHIEF RISK OFFICER, ELEC #### [facility] ([id number]) [address], [address] [place], [place] [address]Wggldg [Moles/Vol]131 mmol/YGhd348-559RduNfgxnjGlenbeigh Hospital Comment on above:Performed By: #### JAMES, 3094-0, CHIEF RISK OFFICER, ELEC #### [facility] ([id number]) [address], [address] [place], [place] [address]NF VENOUS DOPPLER LE LTon 06-08-5561[address] [address] Ultrasound Report Signed Patient: RASHARD LYMAN MR#: [id number] : 1960 Acct:[id number] Age/Sex: 63 / M ADM Date: 11/19/23 Loc: US Attending Dr: Ajay Archer M.D. Ordering Physician: Ajay Archer M.D. Date of Service: 11/19/23 Procedure(s): US venous doppler LE LT Accession Number(s): [id number] cc: Chino Elliott D.P.M.; Ajay Archer M.D. The [place] [id number] Patient Name: RASHARD LYMAN MRN: [id number] date: 1960 Sex: M Assigned Patient Location: US Current Patient Location: US Accession/Order Number: [id number] Exam Date: 11/19/2023 16:06 Report Date: 11/19/2023 [...] overall appearance is unchanged. Electronically authenticated by: CHINO VENEGAS Date: 11/19/2023 17:24 Dictated By: Chino Venegas M.D. Signed By: 11/19/231726 DD/ 23 TD/TT: Fur Dyer:PEPEadiology, Radiologist, - 11/19/[address] [address] Ultrasound Report Signed Patient: RASHARD LYMAN MR#: [id number] : 1960 Acct:[id number] Age/Sex: 63 / M ADM Date: 11/19/23 Loc: US Attending Dr: Ajay Archer M.D. Ordering Physician: Ajay Archer M.D. Date of Service: 11/19/23 Procedure(s): US venous doppler LE LT Accession Number(s): [id number] cc: Chino Elliott D.P.M.; Ajay Archer M.D. [place] [id number] Patient Name: RASHARD LYMAN MRN: [id number] date: 1960 Sex: M Assigned Patient Location: US Current Patient Location: US Accession/Order Number: [id number] Exam Date: 11/19/2023 16:06 Report Date: 11/19/2023 [...] overall appearance is unchanged. Electronically authenticated by: CHINO VENEGAS Date: 11/19/2023 17:24 Dictated By: Chino Venegas M.D. Signed By: 11/19/231726 DD/ 23 TD/TT: Fur Dyer: HERNANDEZ HealthcareRadiology Study observation (narrative)[facility] VENOUS DOPPLER LE LTOrdered By: Radiologist Radiology on [id number] [place] [address] Work Phone: bLOOD UREA NITROGENon 22-97-0056Ljkg nitrogen [Mass/Vol]35 mg/dLHigh5-27ProHca Houston Healthcare MainlandComment on above:Performed By: #### JAMES STARR, 1987-08, 75798-6 #### [facility] ([id number]) [address] [place] [address] #### 58618-3 #### [facility] ([id number]) [address], [address] [place], [place] [address]VWQAUVHxv 30-87-0254Watbirs [Mass/Vol]8.1 mg/dLLow8.5-10.5 ProMLucile Sal[facility] Children's Hospital at StanfordComment on above:Performed By: #### JAMES STARR, 1987-08, 32088-0 #### [facility] ([id number]) [address] [place] [address] #### 80974-0 #### [facility] ([id number]) [address] [facility], [address] [place], [place] [address]RDK AND AUTO DIFFon 32-51-9903YNQBMSTZ BASOPHIL0.0 X10E9/LNormal 0.0-0.2Pro[facility] And Medical CenterComment on above:Performed By: #### JAMES STARR, 1987-08, 73846-8 #### [facility] ([id number]) [address] [place] [address] #### 80012-2 #### [facility] ([id number]) [address] [facility] [address], [address] [place], [place] [address]TQVCGOOD NEUTROPHIL5.4 X10E9/LNormal1.5-6.6ProHca Houston Healthcare MainlandComment on above:Performed By: #### JAMES STARR, 1987-08, 13684-4 #### [facility] ([id number]) [address] [place] [address] [place] [address] #### 32303-4 #### [facility] ([id number]) [facility] [facility], [address] [place], [place] [address]Aiofhshhd/100 WBC (Bld)0.5 %[facility] Comment on above:Performed By: #### JAMES STARR, 1987-08, 70575-6 #### [facility] ([id number]) [address] [place] [address] #### 75162-3 #### [facility] ([id number]) [address] [place], [place] [address], [address] [place], [place] [address]Rhnsdsfzhjo (Bld) [#/Vol]0.3 10*3/uLNormal0.0-0.4ProHca Houston Healthcare MainlandComment on above:Performed By: #### JAMES STARR, 1987-08, 63350-7 #### [facility] ([id number]) [address] [place] [address] 39871 #### 11104-8 #### [facility] ([id number]) [address] [place] [address], [address] [place], [place] [address]Sadvxchuqfp/100 WBC (Bld)3.2 %NormalFayette County Memorial Hospital Comment on above:Performed By: #### JAMES STARR, 1987-08, 17872-7 #### [facility] ([id number]) [address] [place] [address] 55828 #### 41923-7 #### [facility] ([id number]) [address] [place] [address], [address] [place], [place] [address]Rifqcwpofwt distribution width (RBC) [Ratio]14.4 %Normal 11.5-15.0ProHca Houston Healthcare MainlandComment on above:Performed By: #### JAMES STARR, 1987-08, 33542-5 #### [facility] ([id number]) [address] [place] [address] 54350 #### 16081-6 #### [facility] ([id number]) [address], [address] [place], [place] [address]Edcaufonnl (Bld) [Volume fraction]39.7 %Nzloey21-59OdgZlyadaHca Houston Healthcare MainlandComment on above:Performed By: #### MATTY CBCA, 1987-08, 06027-8 #### [facility] ([id number]) [address] [place] [address] 74996 #### 37885-0 #### [facility] ([id number]) [address], [address] [place], [place] [address]Ffitgnnipi (Bld) [Mass/Vol]13.1 g/wKWalwvy31.0-17.0ProHca Houston Healthcare MainlandComment on above:Performed By: #### MATTY, CBCA, 1987-08, 59093-6 #### [facility] ([id number]) [address] [place] [address] 36943 #### 68858-4 #### [facility] ([id number]) [address], [address] [place], [place] [address]Zbqpmzpcqkp (Bld) [#/Vol]2.1 10*3/uLNormal1.0-3.5Pro[facility] Hospital And Medical CenterComment on above:Performed By: #### MATTY, CBCA, 1987-08, 18630-3 #### [facility] ([id number]) [address] [place] [address] 06756 #### 83205-5 #### [facility] ([id number]) [address], [address] [place], [place] [address]Xmyvcpzkecc/100 WBC (Bld)24.5 %NormalProHca [facility] Healthcare Mainland Comment on above:Performed By: #### MATTY, CBCA, 1987-08, #### [facility] ([id number]) [address] [place] [address] 63544 #### 47321-7 #### [facility] ([id number]) [address], [address] [place], [place] [address]TDE (RBC) [Entitic mass]29.0 ycIcocou59-81UayVewfmnHca Houston Healthcare MainlandComment on above:Performed By: #### MATTY, CBCA, 1987-08, #### [facility] ([id number]) [address] [place] [address] 17765 #### 58161-0 #### [facility] ([id number]) [address], [address] [place], [place] [address]CIFU (RBC) [Mass/Vol]32.9 g/jGAsuiao50-13BqgGhypizHca Houston Healthcare MainlandComment on above:Performed By: #### JAMES STARR, 1987-08, #### [facility] ([id number]) [address] [place] [address] 87413 #### 78866-9 #### [facility] ([id number]) [address], [address] [place], [place] [address]VVQ (RBC) [Entitic vol]88 kINhrfuk26-444VixIkexbv [facility]remont HospitalComment on above:Performed By: #### MATTY, CBCA, 1987-08, #### [facility] ([id number]) [address] [place] [address] 60884 #### 87241-4 #### [facility] ([id number]) [address], [address] [place], [place] [address]Jvvgvozgv (Bld) [#/Vol]0.8 10*3/uLNormal0-0.9ProNoland Hospital Birmingham Weston HospitalComment on above:Performed By: #### BMP, CBCA, 1987-08, 13409-5 #### [facility] ([id number]) [address] [place] [address] 76862 #### 23669-8 #### [facility] ([id number]) [address], [address] [place], [place] [address]Lhiiixrcu/100 WBC (Bld)9.2 %[facility] Comment on above:Performed By: #### MATTY, CBCA, 1987-08, 10226-1 #### [facility] ([id number]) [address] [place] [address] 09066 #### 50087-8 #### [facility] ([id number]) [address] [facility], [address] [place], [place] [address]Wucescvlyqc/100 WBC (Bld)62.6 %[facility] Comment on above:Performed By: #### BMP, CBCA, 1987-08, 56981-7 #### [facility] ([id number]) [address] [place] [address] 71215 #### 49324-2 #### [facility] ([id number]) [address], [address] [place], [place] [address]Silavkpp mean volume (Bld) [Entitic vol]8.6 fLNormal7-12 Pro[facility] And Medical CenterComment on above:Performed By: #### BMP, CBCA, 1987-08, 47357-3 #### [facility] ([id number]) [address] [place] [address] 30583 #### 45935-3 #### [facility] ([id number]) [address], [address] [place], [place] [address]Olscfloqq (Bld) [#/Vol]247 10*3/cSChvneo583-244GsxKpjube [facility] HospitalComment on above:Performed By: #### JAMES STARR, 1987-08, 76337-0 #### [facility] ([id number]) [address] [place] [address] 38863 #### 75352-2 #### [facility] ([id number]) [address] [place] [address], [address] [place], [place] [address]MIV COUNT4.51 X10E12/LNormal4.10-5.70[facility] Comment on above:Performed By: #### JAMES STARR, 1987-08, #### [facility] ([id number]) [address] [place] [address] 84322 #### 03198-0 #### [facility] ([id number]) [address] [place] [address], [address] [place], [place] [address]RUW (Bld) [#/Vol]8.5 10*3/uLNormal4.0-11.0ProHca Houston Healthcare MainlandComment on above:Performed By: #### JAMES STARR, 1987-08, 42180-1 #### [facility] ([id number]) [address] [place] [address] 12457 #### 85682-5 #### [facility] ([id number]) [address] [place] [address], [address] [place], [place] [address]QYVOYNNVPQzf 14-01-0810Bbrubydkzo [Mass/Vol]2.69 mg/dLHigh 0.70-1.20ProHca Houston Healthcare MainlandComment on above:Result Comment: METHOD TRACEABLE TO IDMS STANDARDPerformed By: #### JAMES STARR, 1987-08, 73782-8 #### [facility] ([id number]) [address] [place] [address] 93342 #### 68009-8 #### [facility] ([id number]) [address], [address] [place], [place] [address]FGM/1.73 sq M.predicted among non-blacks MDRD (S/P/Bld) [Vol rate/Area]26 mL/min/{1.73_m2}Low>59Pro[facility] Hospital And Medical CenterComment on above: Result Comment: Reported eGFR is based on the CKD-EPI 2020 equation that does not use a race coefficient.Performed By: #### JAMES STARR, 1987-08, 03165-9 #### [facility] ([id number]) [address] [place] [address] 58733 #### 24158-2 #### [facility] ([id number]) [address], [address] [place], [place] [address]Ajjsdxq.ionized (Bld) [Moles/Vol]on 96-86-4772QTLAIHZO ICA4.8 mg/dLNormal4.5-5.3Pro[facility] And Medical CenterComment on above:Performed By: #### JAMES STARR, 1987-08, 74247-7 #### [facility] ([id number]) [address] [place] [address] 96679 #### 88723-6 #### [facility] ([id number]) [address], [address] [place], [place] [address]LTCQZVGQWDBHkd 01-49-2641Lwntd gap [Moles/Vol]5 mmol/LNormal5-15 [facility] And Medical CenterComment on above:Performed By: #### JAMES STARR, 1987-08, 49396-6 #### [facility] ([id number]) [address] [place] [address] 76919 #### 92948-9 #### [facility] ([id number]) [address], [address] [place], [place] [address]Cfyzjzbj [Moles/Vol]108 mmol/TBnavfc96-080NxeCartxoHca Houston Healthcare MainlandComment on above:Performed By: #### JAMES STARR, 1987-08, 40539-5 #### [facility] ([id number]) [address] [place] [address] 33473 #### 34387-7 #### [facility] ([id number]) [address], [address] [place], [place] [address]QU3 [Moles/Vol]18 mmol/BKgb53-46MwlOioycqOhioHealth Dublin [facility] Comment on above:Performed By: #### JAMES STARR, 1987-08, 73316-5 #### [facility] ([id number]) [address] [place] [address] 69316 #### 64679-4 #### [facility] ([id number]) [address], [address] [place], [place] [address]Tmzoktvge [Moles/Vol]4.1 mmol/LNormal3.5-5.0ProHca [facility] Healthcare MainlandComment on above:Performed By: #### JAMES STARR, 1987-08, 09354-0 #### [facility] ([id number]) [address] [place] [address] 47479 #### 33746-5 #### [facility] ([id number]) [address], [address] [place], [place] [address]Erulvr [Moles/Vol]131 mmol/EOql257-583DruLmlxgjFayette County Memorial Hospital Comment on above:Performed By: #### JAMES STARR, 1987-08, 53735-9 #### [facility] ([id number]) [address] [place] [address] 84845 #### 12353-7 #### [facility] ([id number]) [address], [address] [place], [place] [address]TOE Photometric method (Bld) [Velocity]on 18-29-8800IQS, ERYTHROCYTE SEDIMENTATION RATE89 mm/hHigh0-20ProHca [facility] Healthcare MainlandComment on above:Performed By: #### JAMES STARR, 1987-08, 47880-7 #### [facility] ([id number]) [address] [place] [address] 05965 #### 53278-7 #### [facility] ([id number]) [address], [address] [place], [place] [address]FZX A1C (GLYCO-HGB)on 70-04-5840Phtmerd [Mass/Vol]235 mg/dL NormalProHca Houston Healthcare MainlandComment on above:Performed By: #### JAMES STARR, 1987-08, 11950-8 #### [facility] ([id number]) [address] [place] [address] 90612 #### 23523-3 #### [facility] ([id number]) [address], [address] [place], [place] [address]SdU3l (Bld) [Mass fraction]9.8 %High4.4-5.6ProHca Houston Healthcare MainlandComment on above:Result Comment: NOTE ADA Guidelines Result HgbA1c Normal : less than 5.7 % Prediabetes : 5.7 % to 6.4 % Diabetes : > 6.4 % Use with caution in patients with abnormal hemoglobin variants as the half-life of red blood cells and in vivo glycation rates are affected.Performed By: #### JAMES STARR, 1987-08, 88614-1 #### [facility] ([id number]) [address] [place] [address] 57177 #### 90006-1 #### [facility] ([id number]) [address], [address] [place], [place] [address]FRVKW PANELon 71-71-2920Tlyesne [Mass/Vol]2.8 g/dLLow3.2-5.3 [facility] And Medical CenterComment on above:Performed By: #### JAMES STARR, 1987-08, 15211-7 #### [facility] ([id number]) [address] [place] [address] 36660 #### 69497-8 #### [facility] ([id number]) [address] [facility], [address] [place], [place] [address]VKL [Catalytic activity/Vol]86 U/MCqaewn40-201VowTyhvuqHca Houston Healthcare MainlandComment on above:Performed By: #### JAMES STARR, 1987-08, 01143-1 #### [facility] ([id number]) [address] [place] [address] 78646 #### 29938-0 #### [facility] ([id number]) [address] [facility], [address] [place], [place] [address]QJB [Catalytic activity/Vol]19 U/LNormal0-40ProHca [facility] Healthcare MainlandComment on above:Performed By: #### JAMES STARR, 1987-08, 93237-1 #### [facility] ([id number]) [address] [place] [address] 26090 #### 41516-7 #### [facility] ([id number]) [address] [facility], [address] [place], [place] [address]WHP [Catalytic activity/Vol]15 U/LNormal0-41ProHca [facility] Healthcare MainlandComment on above:Performed By: #### JAMES STARR, 1987-08, 34747-0 #### [facility] ([id number]) [address] [place] [address] 06234 #### 12790-5 #### [facility] ([id number]) [address] [facility], [address] [place], [place] [address]Lgosjhzsb [Mass/Vol]0.5 mg/dLNormal0.3-1.2ProMedEl Camino HospitalComment on above:Performed By: #### JAMES STARR, 1987-08, 11204-0 #### [facility] ([id number]) [address] [place] [address] 54717 #### 68702-3 #### [facility] ([id number]) [address] [place] [address], [address] [place], [place] [address]Rloqbgwns.indirect [Mass/Vol]mg/dLNormal0.0-0.4ProHca [facility] Healthcare MainlandComment on above:Performed By: #### JAMES STARR, 1987-08, 68523-9 #### [facility] ([id number]) [address] [place] [address] 61943 #### 11276-2 #### [facility] ([id number]) [address] [place] [address], [address] [place], [place] [address]Aycnohn [Mass/Vol]6.4 g/dLNormal6.0-8.0ProHca [facility] Healthcare MainlandComment on above:Performed By: #### JAMES STARR, 1987-08, 49807-2 #### [facility] ([id number]) [address] [place] [address] 72543 #### 31435-0 #### [facility] ([id number]) [address] [place] [address], [address] [place], [place] [address]Vosex 1996 panelon 20-89-5715Dngtvjxzgxd [Mass/Vol]135 mg/dLLow 150-200ProHca [facility] Healthcare MainlandComment on above:Performed By: #### JAMES STARR, 1987-08, 52148-8 #### [facility] ([id number]) [address] [place] [address] 02269 #### 29270-0 #### [facility] ([id number]) [address] [facility], [address] [place], [place] [address]Rzfqpvbzdnf in HDL [Mass/Vol]40 mg/dLNormal>39ProH[facility] Healthcare MainlandComment on above:Result Comment: HDL <40 mg/dL - High Risk HDL > or = 40mg/dL- Desirable HDL >60 mg/dL - Negative Risk Performed By: #### JAMES STARR, , 55536-2 #### [facility] ([id number]) [address] [place] [address] 22842 #### 04536-4 #### [facility] ([id number]) [address] [facility], [address] [place], [place] [address]Dsozdfcrzel in LDL [Mass/Vol]57 mg/dLNormal<130ProHca [facility] Healthcare MainlandComment on above:Result Comment: LDL <100 mg/dL - Desirable LDL >160 mg/dL - High Risk Performed By: #### JAMES STARR, , 19540-2 #### [facility] ([id number]) [address] [place] [address] 08488 #### 98756-6 #### [facility] ([id number]) [address] [facility], [address] [place], [place] [address]Uxijptuixtc in VLDL [Mass/Vol]38 mg/dLHigh0-30ProH[facility] Healthcare MainlandComment on above:Performed By: #### JAMES STARR, 1987-08, 79668-1 #### [facility] ([id number]) [address] [place] [address] 68684 #### 13960-7 #### [facility] ([id number]) [address] [facility], [address] [place], [place] [address]XYTLJOCZYJL:HDL3.0Ecywrb5.0-5.0[facility] HospitalComment on above:Performed By: #### JAMES STARR, 1987-08, 51318-2 #### [facility] ([id number]) [address] [place] [address] 76120 #### 20184-3 #### [facility] ([id number]) [address] [place] [address], [address] [place], [place] [address]Hkdsdwznarso [Mass/Vol]192 mg/jYNogm77-743AthKnenquHca Houston Healthcare MainlandComment on above:Performed By: #### JAMES STARR, 1987-08, 59438-1 #### [facility] ([id number]) [address] [place] [address] 35332 #### 60825-4 #### [facility] ([id number]) [address] [place] [address], [address] [place] [address]CNFXMIUYToe 22-29-9858Tzhvgaeyl [Mass/Vol]2.1 mg/dLNormal1.8-2.6 [facility] And Medical CenterComment on above:Performed By: #### JAMES STARR, 1987-08, 74185-7 #### [facility] ([id number]) [address] [place] [address] 32782 #### 13116-9 #### [facility] ([id number]) [address] [place] [address], [address] [place] [address]Eamjrdaxwly peptide.B prohormone N-Terminal IA [Mass/Vol]on 24-69-4255Wxqrwmlfmqw peptide B (Bld) [Mass/Vol]1528 pg/mLHigh<=88ProHca Houston Healthcare MainlandComment on above:Result Comment: NOTE NT-proBNP values less than 300 [...] absence of renal failure. Test Performed by: [facility] [place] [address] Service Advocate Contact: Brittani Nieves Ph.D.; CLIA# [id number] By: #### MATTY CBCA, 1987-08, 45701-2 #### [facility] ([id number]) [address] [place] [address] 61511 #### 76982-0 #### [facility] ([id number]) [address] [place] [address], [address] [place], [place] [address]Xbfsnnua specific Ag [Mass/Vol]on 47-01-2125TIO SCREEN1.65 ng/mL Normal0.00-4.00ProHca [facility] Healthcare MainlandComment on above:Result Comment: The method used for this test is Rufus Rommel DXI chemiluminescent immunoassay. Values obtained by different assay methods cannot be used interchangeably.Performed By: #### MATTY, CBCA, 1987-08, 07451-2 #### [facility] ([id number]) [address] [place] [address] 98459 #### 03291-8 #### [facility] ([id number]) [address] [facility], [address] [place], [place] [address]Mvuvltz D+Metabolites [Mass/Vol]on 90-45-4831RKRSFFT D 25 HYD TOT8.3 ng/fWWwf15-771JdfZednmnHca Houston Healthcare MainlandComment on above:Result Comment: Vitamin D status 25 [place] Vitamin D Deficiency <20 ng/mL Insufficiency 20-29 ng/mL Sufficiency 30-100 ng/mL Toxicity >100 ng/mL NOTE: A pediatric reference range has not been established by the groundhand of this kit. The [place] [employer] recommends a Vitamin D level of = or >20ng/mL in infants and children.Performed By: #### JAMES STARR, 1987-08, 64020-0 #### [facility] ([id number]) [address] [place] [address] 22822 #### 80036-7 #### [facility] ([id number]) [address], [address] [place], [place] [address]IUVQV UREA NITROGENon 47-31-4477Cogt nitrogen [Mass/Vol]33 mg/dL High5-27ProHca [facility] Healthcare MainlandComment on above:Performed By: #### JAMES STARR, 1987-08, 48726-2 #### [facility] ([id number]) [address] [place] [address] 68637 #### 19945-0 #### [facility] ([id number]) [address], [address] [place], [place] [address]CIXWPIBKAEel 71-98-7197Ihfuweucnw [Mass/Vol]2.42 mg/dLHigh 0.70-1.20ProHca [facility] Healthcare MainlandComment on above:Result Comment: METHOD TRACEABLE TO IDMT STANDARDPerformed By: #### JAMES STARR, 1987-08, 65770-3 #### [facility] ([id number]) [address] [place] [address] 78999 #### 27296-2 #### [facility] ([id number]) [address], [address] [place], [place] [address]WMH/1.73 sq M.predicted among non-blacks MDRD (S/P/Bld) [Vol rate/Area]29 mL/min/{1.73_m2}Low>59ProHca [facility] Healthcare MainlandComment on above: Result Comment: Reported eGFR is based on the CKD-EPI 2020 equation that does not use a race coefficient.Performed By: #### JAMES STARR, 1987-08, 47738-4 #### [facility] ([id number]) [address] [place] [address] 75763 #### 68940-0 #### [facility] ([id number]) [address], [address] [place], [place] [address]OBVPOSABURQWcr 68-01-4191Fyone gap [Moles/Vol]7 mmol/LNormal5-15 [facility] And Medical CenterComment on above:Performed By: #### JAMES STARR, 1987-08, 75590-8 #### [facility] ([id number]) [address] [place] [address] 01220 #### 22803-2 #### [facility] ([id number]) [address], [address] [place], [place] [address]Ixhhsfhc [Moles/Vol]106 mmol/ZIutsxy28-154OweSmxmrg [facility] Medical CenterComment on above:Performed By: #### JAMES STARR, 1987-08, 97945-1 #### [facility] ([id number]) [address] [place] [address] 16364 #### 98105-4 #### [facility] ([id number]) [address], [address] [place], [place] [address]IL3 [Moles/Vol]21 mmol/ITuf44-82NktZbpged [facility] Comment on above:Performed By: #### JAMES STARR, 1987-08, 67759-5 #### [facility] ([id number]) [address] [place] [address] 91633 #### 33154-8 #### [facility] ([id number]) [address], [address] [place], [place] [address]Uaxoqgxpt [Moles/Vol]4.2 mmol/LNormal3.5-5.0ProHca [facility] Healthcare MainlandComment on above:Performed By: #### JAMES STARR, 1987-08, 00127-6 #### [facility] ([id number]) [address] [place] [address] 30875 #### 43031-1 #### [facility] ([id number]) [address] [place] [address], [address] [place], [place] [address]Arniho [Moles/Vol]134 mmol/GPooyeq504-099BapOzepke Fremont HospitalComment on above:Performed By: #### JAMES STARR, 1987-08, 03891-6 #### [facility] ([id number]) [address] [place] [address] 51651 #### 44103-1 #### [facility] ([id number]) [address] [place] [address], [address] [place], [place] [address]Ezqtizvtjpj peptide.B prohormone N-Terminal [Mass/Vol]on 62-72-5452RU Pro BNPSee BelowNormalProHca Houston Healthcare MainlandComment on above: Result Comment: NOTE TEST RESULT FLAG UNIT REF.RANGE PRO B Natr Peptide 933 H pg/mL <125 Test Performed By: [facility] [employer] [address] [place] [address] Cannoneer: Charlotte Hart III #[id number] By: #### JAMES STARR, 1987-08, 41163-3 #### [facility] ([id number]) [address] [place] [address] #### 49627-7 #### [facility] ([id number]) [address], [address] [place], [place] [address]UMGMZ UREA NITROGENon 00-53-3579Gnfe nitrogen [Mass/Vol]38 mg/dL High5-27ProHca Houston Healthcare MainlandComment on above:Performed By: #### JAMES STARR, 1987-08, 29530-4 #### [facility] ([id number]) [address] [place] [address]607 #### 09958-9 #### [facility] ([id number]) [address] [facility], [address] [place], [place] [address]GLJMYUSKNAfj 91-08-0515Ycfbbwcqnz [Mass/Vol]2.76 mg/dLHigh 0.70-1.20ProHca Houston Healthcare MainlandComment on above:Result Comment: METHOD TRACEABLE TO IDMS STANDARDPerformed By: #### JAMES STARR, 1987-08, 36120-8 #### [facility] ([id number]) [address] [place] [address] #### 20531-8 #### [facility] ([id number]) [address] [facility], [address] [place], [place] [address]RLN/1.73 sq M.predicted among non-blacks MDRD (S/P/Bld) [Vol rate/Area]25 mL/min/{1.73_m2}Low>59ProHca Houston Healthcare MainlandComment on above: Result Comment: Reported eGFR is based on the CKD-EPI 2020 equation that does not use a race coefficient.Performed By: #### JAMES STARR, 1987-08, 97596-5 #### [facility] ([id number]) [address] [place] [address] #### 28950-7 #### [facility] ([id number]) [address] [facility], [address] [place], [place] [address]URQBQNTTZBGVsb 78-68-0271Oywog gap [Moles/Vol]7 mmol/LNormal5-15 [facility] And Medical CenterComment on above:Performed By: #### JAMES STARR, 1987-08, 23633-9 #### [facility] ([id number]) [address] [place] [address]27[address] #### 36854-2 #### [facility] ([id number]) [address], [address] [place], [place] [address]Lstikfve [Moles/Vol]104 mmol/WGivsrw61-831DrcRcarglHca Houston Healthcare MainlandComment on above:Performed By: #### JAMES STARR, 1987-08, 40046-6 #### [facility] ([id number]) [address] [place] [address]361 #### 44513-0 #### [facility] ([id number]) [address], [address] [place], [place] [address]SJ5 [Moles/Vol]21 mmol/NYpw45-14XotSpzsis [facility] Comment on above:Performed By: #### JAMES STARR, 1987-08, 03999-1 #### [facility] ([id number]) [address] [place] [address]83 #### 90223-8 #### [facility] ([id number]) [address], [address] [place], [place] [address]Rrbltdchq [Moles/Vol]4.3 mmol/LNormal3.5-5.0ProHca Houston Healthcare MainlandComment on above:Performed By: #### JAMES STARR, 1987-08, 84350-7 #### [facility] ([id number]) [address] [place] [address] 7[address] #### 48416-0 #### [facility] ([id number]) [address], [address] [place], [place] [address]Vgbusn [Moles/Vol]132 mmol/GMzx347-217TjaSzfsiaFayette County Memorial Hospital Comment on above:Performed By: #### JAMES STARR, 1987-08, 78034-2 #### [facility] ([id number]) [address] [place] [address] 88281 #### 02284-4 #### [facility] ([id number]) [address] [facility], [address] [place], [place] [address]Oyyntxvrfnr peptide.B prohormone N-Terminal [Mass/Vol]on 53-33-6332UG Pro BNPSee BelowNormalProHca Houston Healthcare MainlandComment on above: Result Comment: NOTE TEST RESULT FLAG UNIT REF.RANGE PRO B Natr Peptide 1296 H pg/mL <125 Test Performed By: [place] [address] Cannoneer: Charlotte Hart III #[id number] By: #### JAMES STARR, 1987-08, 76463-0 #### [facility] ([id number]) [address] [place] [address] 29669 #### 99950-5 #### [facility] ([id number]) [address] [facility], [address] [place], [place] [address]JODVG UREA NITROGENon 49-22-1003Jjbd nitrogen [Mass/Vol]34 mg/dL High5-27ProHca Houston Healthcare MainlandComment on above:Performed By: #### JAMES STARR, 1987-08, 07494-6 #### [facility] ([id number]) [address] [place] [address] 63910 #### 93857-0 #### [facility] ([id number]) [address] [facility], [address] [place], [place] [address]YDMOZKEAFNhd 10-43-3345Exiisokzqs [Mass/Vol]3.13 mg/dLHigh 0.70-1.20F[facility] County Memorial HospitalComment on above:Result Comment: METHOD TRACEABLE TO IDMS STANDARDPerformed By: #### JAMES STARR, 1987-08, 59561-0 #### [facility] ([id number]) [address] [place] [address] 22514 #### 57686-2 #### [facility] ([id number]) [address] [facility], [address] [address]WCN/1.73 sq M.predicted among non-blacks MDRD (S/P/Bld) [Vol rate/Area]22 mL/min/{1.73_m2}Low>59ProHca Houston Healthcare MainlandComment on above: Result Comment: Reported eGFR is based on the CKD-EPI 2020 equation that does not use a race coefficient.Performed By: #### JAMES STARR, 1987-08, 71499-0 #### [facility] ([id number]) [address] [place] [address] 69225 #### 19333-9 #### [facility] ([id number]) [address] [facility], [address] [place], [place] [address]DBKVSSNXCMEEbw 96-50-8957Hqczi gap [Moles/Vol]8 mmol/LNormal5-15 ProMLucile Salter Pack[facility] Children's Hospital at StanfordComment on above:Performed By: #### JAMES STARR, 1987-08, 06707-7 #### [facility] ([id number]) [address] [place] [address] 47172 #### 73483-2 #### [facility] ([id number]) [address], [address] [place], [place] [address]Yxjvpmfd [Moles/Vol]106 mmol/LWkddzk90-802JdnOdybodHca Houston Healthcare MainlandComment on above:Performed By: #### JAMES STARR, 1987-08, 10695-1 #### [facility] ([id number]) [address] [place] [address] 14444 #### 94856-3 #### [facility] ([id number]) [address] [facility], [address] [place], [place] [address]XT3 [Moles/Vol]20 mmol/RInk28-75RlwLthcaaOhioHealth Dublin Methodist Hospital Comment on above:Performed By: #### JAMES STARR, 1987-08, 14176-2 #### [facility] ([id number]) [address] [place] [address] 29068 #### 25459-5 #### [facility] ([id number]) [address] [facility], [address] [place], [place] [address]Hdzguedry [Moles/Vol]4.7 mmol/LNormal3.5-5.0ProHca Houston Healthcare MainlandComment on above:Performed By: #### JAMES STARR, 1987-08, 02754-5 #### [facility] ([id number]) [address] [place] [address] 20727 #### 36912-7 #### [facility] ([id number]) [address] [facility], [address] [place], [place] [address]Blhjxy [Moles/Vol]134 mmol/SBwvwga398-353GugHrqvxe Fremont HospitalComment on above:Performed By: #### JAMES STARR, 1987-08, 79887-1 #### [facility] ([id number]) [address] [place] [address] 03816 #### 91678-4 #### [facility] ([id number]) [address] [facility], [address] [place], [place] [address]Jibbgakhhua peptide.B prohormone N-Terminal [Mass/Vol]on 92-62-9616AB Pro BNPSee BelowNormalProHca Houston Healthcare MainlandComment on above: Result Comment: NOTE TEST RESULT FLAG UNIT REF.RANGE PRO B Natr Peptide 413 H pg/mL <125 Test Performed By: [place] [address] Cannoneer: Charlotte Hart III #[id number] By: #### JAMES STARR, 1987-08, 99476-2 #### [facility] ([id number]) [address] [place] [address] 79449 #### 75684-9 #### [facility] ([id number]) [address] [place] [address] [address] [place], [place] [address]PWMBR UREA NITROGENon 61-08-5429Onrq nitrogen [Mass/Vol]33 mg/dL High5-27ProHca Houston Healthcare MainlandComment on above:Performed By: #### JAMES STARR, 1987-08, 95547-1 #### [facility] ([id number]) [address] [place] [address] 95739 #### 76887-4 #### [facility] ([id number]) [address] [place] [address], [address] [place], [place] [address]SGVQIHXWDLxw 46-92-2126Cwcoqhszfn [Mass/Vol]2.37 mg/dLHigh 0.70-1.20ProHca Houston Healthcare MainlandComment on above:Result Comment: METHOD TRACEABLE TO IDMS STANDARDPerformed By: #### JAMES STARR, 1987-08, 74834-3 #### [facility] ([id number]) [address] [place] [address] 97766 #### 92256-8 #### [facility] ([id number]) [address] [facility], [address] [place], [place] [address]KFE/1.73 sq M.predicted among non-blacks MDRD (S/P/Bld) [Vol rate/Area]30 mL/min/{1.73_m2}Low>59ProHca Houston Healthcare MainlandComment on above: Result Comment: Reported eGFR is based on the CKD-EPI 2020 equation that does not use a race coefficient.Performed By: #### JAMES STARR, 1987-08, 54312-2 #### [facility] ([id number]) [address] [place] [address] 36381 #### 21348-7 #### [facility] ([id number]) [address] [facility], [address] [place], [place] [address]YENJEJYJXFWKwm 56-80-7627Fnsov gap [Moles/Vol]7 mmol/LNormal5-15 [facility] Medical CenterComment on above:Performed By: #### JAMES STARR, 1987-08, 23200-7 #### [facility] ([id number]) [address] [place] [address] 79309 #### 57011-1 #### [facility] ([id number]) [address] [facility], [address] [place], [place] [address]Gjdtcobf [Moles/Vol]106 mmol/KZjwxbh95-283BcmFurzekHca Houston Healthcare MainlandComment on above:Performed By: #### JAMES STARR, 1987-08, 71450-5 #### [facility] ([id number]) [address] [place] [address] 51552 #### 76361-8 #### [facility] ([id number]) [address] [facility], [address] [place], [place] [address]SA9 [Moles/Vol]20 mmol/YAjp89-62IosEohpmnOhioHealth Dublin Methodist Hospital Comment on above:Performed By: #### JAMES STARR, 1987-08, 42010-1 #### [facility] ([id number]) [address] [place] [address] 51879 #### 28258-4 #### [facility] ([id number]) [address] [facility], [address] [place], [place] [address]Wcawmmccw [Moles/Vol]4.6 mmol/LNormal3.5-5.0F[facility] County Memorial HospitalComment on above:Performed By: #### JAMES STARR, 1987-08, 12533-5 #### [facility] ([id number]) [address] [place] [address] 23924 #### 34812-2 #### [facility] ([id number]) [address] [facility], [address] [place], [place] [address]Diplht [Moles/Vol]133 mmol/OLjb243-062KufMeichwFayette County Memorial Hospital Comment on above:Performed By: #### JAMES STARR, 1987-08, 37450-8 #### [facility] ([id number]) [address] [place] [address] 58769 #### 64431-7 #### [facility] ([id number]) [address] [facility], [address] [place], [place] [address]Qwqlnyxnvff peptide.B prohormone N-Terminal [Mass/Vol]on 88-89-3823CB Pro BNPSee BelowNormalProHca Houston Healthcare MainlandComment on above: Result Comment: NOTE TEST RESULT FLAG UNIT REF.RANGE PRO B Natr Peptide 526 H pg/mL <125 Test Performed By: [facility] [employer] [address] [place] [address] Cannoneer: Charlotte Hart III #[id number] By: #### BMP, CBCA, 1988-5, 56335-2 #### [facility] ([id number]) [address], [place] [address] #### 95155-5 #### [facility] ([id number]) [address] [place] [address], [address] [place], [place] [address]Ulvb,Urineon 30-70-4713Acow,UrineSpecimen Description .VOIDED URINE Culture ESCHERICHIA COLI >100,000 [...] <=4 SUSCEPTIBLE Tobramycin 4 SUSCEPTIBLE Trimethoprim/Sulfa >=320 RESISTANTResistantMercy Mt. Sinai HospitalComment on above:Performed By: #### URC #### [facility] [address] [place], [place] [address] Service Advocate Contact: Griffin Carrion MD [facility] [address] [place] [address] Service Advocate Contact: WAYNE Mccann w/Reflex Cultureon 52-93-8092Wvyydhjtl, SemiQt,UrNegativeNormalNEGMercy Mt. Sinai HospitalComment on above:Performed By: #### UAX, UMICAO #### [facility] [address] [place] [address] Service Advocate Contact: Brenda Mccann, UrineTRACEAbnormalNEGChillicothe Va Medical Center Comment on above:Performed By: #### UAX, UMICAO #### [facility] [address] [place] [address] Dr. [place], [place] [phone] Service Advocate Contact: SHANI Mccannlarity (U)SLIGHTLY CLOUDYAbnormalCLEARMercy Clinton HospitalComment on above:Performed By: #### UAX, UMICAO #### [facility] [address] [place] [address] Dr. [place], [place] [phone] Service Advocate Contact: SHANI Mccannolor (U)YellowNormalYMercy Health [facility] Comment on above:Performed By: #### UAX, UMICAO #### [facility] [address] [place] [address] Dr. [place], [place] [phone] Service Advocate Contact: Jameson Aaron MDGlucose Ql (U)3+ mg/dLAbnormalNEGTrinity Health System HospitalComment on above:Performed By: #### UAX, UMICAO #### [facility] [address] [place] [address] Dr. [place], [place] [phone] Service Advocate Contact: Jameson Aaron MDKetones Ql (U)NegativeNormalNEGTrinity Health System HospitalComment on above:Performed By: #### UAX, UMICAO #### [facility] [address] [place] [address] Dr. [place], [place] [phone] Service Advocate Contact: Jameson Aaron MDLeukocyte esterase Test strip Ql (U)TRACEAbnormal NEGTrinity Health System HospitalComment on above:Performed By: #### UAX, UMICAO #### [facility] [address] [place] [address] Dr. [place], [place] [phone] Service Advocate Contact: Jeaneth Mccannite,UrNegativeOhioHealth Hardin Memorial Hospital Comment on above:Performed By: #### UAX, UMICAO #### [facility] [address] [place] [address] [place] [address] Service Advocate Contact: CANDACE MccannH,Ur5.5Povvmu8.0-9.0Chillicothe Va Medical CenterComment on above:Performed By: #### UAX, UMICAO #### [facility] [address] [place] [address] Dr. [place], [place] [phone] Service Advocate Contact: CANDACE Mccannrotein Ql (U)2+ mg/dLAbnormalNEGTrinity Health System HospitalComment on above:Performed By: #### UAX, UMICAO #### [facility] [address] [place] [address] Dr. [place], [place] [phone] Service Advocate Contact: BUCK Mccannpec. [place],Ur1.949Ptcm0.010-1.020Trinity Health System HospitalComment on above:Performed By: #### LORI JOSEPHO #### [facility] [address] [place] [address] Dr. [place], [place] [phone] Service Advocate Contact: Jameson Aaron MDUrobilinogen,UrNormalNormal0.0-1.0Chillicothe Va Medical CenterComment on above:Performed By: #### LORI JOSEPHO #### [address] [place], [place] [phone] Service Advocate Contact: Jameson Aaron MDUrinalysis,Microon 08-29-2421Yazjaprz5+Abnormal NONEMerSelect Medical OhioHealth Rehabilitation Hospital - Dublin HospitalComment on above:Performed By: #### JAKE, UMICAO #### [facility] [address] [place] [address] Dr. [place], [place] [phone] Service Advocate Contact: Jameson Aaron MDEpithelial cells LM Ql (Urine sed)0 TO 1Oybcyc5-0 [facility] HospitalComment on above:Performed By: #### UAX, UMICAO #### [facility] [address] [place] [address] Dr. [place], [place] [phone] Service Advocate Contact: Jameson Aaron MDEpithelial, Renal0 TO 9Yssunr7QhhysChillicothe Va Medical CenterComment on above:Performed By: #### LORI JOSEPHO #### [facility] [address] [place], [place] [phone] Service Advocate Contact: Edmond Mccann RBC's0 TO 7Vfepsi8-7QhysdProvidence Hospital Comment on above:Performed By: #### COURTNEY JOSEPH #### [facility] [address] [place], [place] [phone] Service Advocate Contact: Edmond Mccann WBC's10 TO 09Oxhate6-8OwtadChillicothe Va Medical Center Comment on above:Performed By: #### COURTNEY JOSEPH #### [facility] [address] [place], [place] [phone] Service Advocate Contact: Jameson Aaron MDYeastPRESENCE NOTEDAbnormalNONEMeThe Hospital of Central ConnecticutComment on above:Performed By: #### COURTNEY JOSEPH #### [facility] [address] [place], [place] [phone] Service Advocate Contact: BRENDA Mccann UREA NITROGENon 23-14-1234Awfa nitrogen [Mass/Vol]44 mg/dLHigh5-27ProHca Houston Healthcare MainlandComment on above:Performed By: #### ELEC, 3094-0, CHIEF RISK OFFICER, 60713-9 #### [facility] ([id number]) [address] [place] [address], [place] [address] #### 61654-2, HA1C #### [facility] ([id number]) [address] [place] [address], [address] [place], [place] [address]VWQGOUUMKIpo 03-99-6285Fqpixozbgx [Mass/Vol]2.71 mg/dLHigh 0.70-1.20ProHca Houston Healthcare MainlandComment on above:Result Comment: METHOD TRACEABLE TO IDMS STANDARDPerformed By: #### ELEC, 3094-0, CHIEF RISK OFFICER, 00146-2 #### [facility] ([id number]) [address] [place] [address] 99054 #### 06425-9, HA1C #### [facility] ([id number]) [address] [place] [address], [address] [place], [place] [address]RQF/1.73 sq M.predicted among non-blacks MDRD (S/P/Bld) [Vol rate/Area]26 mL/min/{1.73_m2}Low>59ProHca Houston Healthcare MainlandComment on above: Result Comment: Reported eGFR is based on the CKD-EPI 2020 equation that does not use a race coefficient.Performed By: #### PHIL, 3094-0, CHIEF RISK OFFICER, 17420-4 #### [facility] ([id number]) [address] [place] [address] 61489 #### 16592-4, HA1C #### [facility] ([id number]) [address] [place] [address], [address] [place] [address]WAIUAXUUPYVPjm 20-97-5983Wxohv gap [Moles/Vol]11 mmol/LNormal 5-15ProHca Houston Healthcare MainlandComment on above:Performed By: #### ELEC, 3094-0, CHIEF RISK OFFICER, 63855-8 #### [facility] ([id number]) [address] [place] [address] 41033 #### 42068-3, HA1C #### [facility] ([id number]) [address] [place] [address], [address] [place], [place] [address]Jvrwpxae [Moles/Vol]101 mmol/XVmjdka85-360PehRpjdwfHca Houston Healthcare MainlandComment on above:Performed By: #### ELEC, 3094-0, CHIEF RISK OFFICER, 93180-7 #### [facility] ([id number]) [address] [place] [address] 25757 #### 17964-6, HA1C #### [facility] ([id number]) [address] [place] [address], [address] [place], [place] [address]AG[address] [Moles/Vol]18 mmol/COar97-44AfjUedwocOhioHealth Dublin Methodist Hospital Comment on above:Performed By: #### ELEC, 3094-0, CHIEF RISK OFFICER, 87988-9 #### [facility] ([id number]) [address] [place] [address] 16889 #### 45458-7, HA1C #### [facility] ([id number]) [address] [facility], [address] [place], [place] [address]Vntgswzxz [Moles/Vol]4.4 mmol/LNormal3.5-5.0ProHca Houston Healthcare MainlandComment on above:Performed By: #### ELEC, 3094-0, CHIEF RISK OFFICER, 22474-2 #### [facility] ([id number]) [address] [place] [address] 17256 #### 17669-0, HA1C #### [facility] ([id number]) [address] [facility], [address] [place], [place] [address]Mdxdoc [Moles/Vol]130 mmol/KUhk590-061RmxZmigyuFayette County Memorial Hospital Comment on above:Performed By: #### ELEC, 309-0, CHIEF RISK OFFICER, 02264-7 #### [facility] ([id number]) [address] [place] [address] 09781 #### 73547-3, HA1C #### [facility] ([id number]) [address], [address] [place], [place] [address]JBB A1C (GLYCO-HGB)on 59-00-4738Tyygkxz [Mass/Vol]260 mg/dL NormalProHca Houston Healthcare MainlandComment on above:Performed By: #### BMP, CBCA, 1987-, 88793-6 #### [facility] ([id number]) [address] [place] [address] 06441 #### 82792-7 #### [facility] ([id number]) [address] [place] [address], [address] [place], [place] [address]AxM4o (Bld) [Mass fraction]10.7 %High4.4-5.6F[facility] County Memorial HospitalComment on above:Result Comment: NOTE ADA Guidelines Result HgbA1c Normal : less than 5.7 % Prediabetes : 5.7 % to 6.4 % Diabetes : > 6.4 % Use with caution in patients with abnormal hemoglobin variants as the half-life of red blood cells and in vivo glycation rates are affected.Performed By: #### MATTY, CBCA, 1987-08, 83013-1 #### [facility] ([id number]) [address] [place] [address] #### 97041-1 #### [facility] ([id number]) [address] [place] [address], [address] [place], [place] [address]Vewdm 1996 panelon 13-96-2408Qkhpzvvxlfw [Mass/Vol]205 mg/dLHigh 150-200ProHca Houston Healthcare MainlandComwalter p. [facility] on above:Performed By: #### PHIL, 3094- 0, CHIEF RISK OFFICER, 93658-0 #### [facility] ([id number]) [address] [place] [address] 08183 #### 61621-4, HA1C #### [facility] ([id number]) [address] [place] [address], [address] [place], [place] [address]Vfcvrvwtrac in HDL [Mass/Vol]35 mg/dLLow>39ProHca Houston Healthcare MainlandComwalter p. reuther psychiatric hospital on above:Result Comment: HDL <40 mg/dL - High Risk HDL > or = 40mg/dL- Desirable HDL >60 mg/dL - Negative Risk Performed By: #### PHIL, 3094-0, CHIEF RISK OFFICER, 68903-0 #### [facility] ([id number]) [address] [place] [address]376 #### 11136-1, HA1C #### [facility] ([id number]) [address], [address] [place], [place] [address]Qqatbijvdla in LDL [Mass/Vol]120 mg/dLNormal<130ProHca Houston Healthcare MainlandComment on above:Result Comment: LDL <100 mg/dL - Desirable LDL >160 mg/dL - High Risk Performed By: #### ELEC, 3094-0, CHIEF RISK OFFICER, 76606-6 #### [facility] ([id number]) [address] [place] [address]3432 #### 22277-9, HA1C #### [facility] ([id number]) [address], [address] [place], [place] [address]Wyeucgbxmus in VLDL [Mass/Vol]50 mg/dLHigh0-30ProHca Houston Healthcare MainlandComment on above:Performed By: #### ELEC, 3094-0, CHIEF RISK OFFICER, 44828-0 #### [facility] ([id number]) [address] [place] [address] 30195 #### 04588-8, HA1C #### [facility] ([id number]) [address], [address] [place], [place] [address]LURFTEZFHMC:HDL5.9High1.0-5.0ProHca Houston Healthcare MainlandComment on above:Performed By: #### ELEC, 3094-0, CHIEF RISK OFFICER, 90277-4 #### [facility] ([id number]) [address] [place] [address] 67672 #### 31516-2, HA1C #### [facility] ([id number]) [address], [address] [place], [place] [address]Onyfnjdcdvmn [Mass/Vol]248 mg/fSRqxe91-546RdnLaecefHca Houston Healthcare MainlandComment on above:Performed By: #### PHIL, 3094-0, CHIEF RISK OFFICER, 19611-4 #### [facility] ([id number]) [address] [place] [address]93[address] #### 97065-1, HA1C #### [facility] ([id number]) [address], [address] [place], [place] [address]UFXBJNCPYCJT - ALBUMIN:CREATININE URINE RATIOon 05-06-2023 ALB/CREAT ZBGRC5680.0 mg/g creatHigh0.0-30.0ProHca Houston Healthcare MainlandComment on above:Performed By: #### JAMES STARR, 1987-08, 10139-0 #### [facility] ([id number]) [address] [place] [address] 81573 #### 55713-3 #### [facility] ([id number]) [address] [facility], [address] [place], [place] [address]Hbxcjum DL <= 20 mg/L (U) [Mass/Vol]195.2 mg/dLHigh0.0-1.9 Pro[facility] Hospital And Medical CenterComment on above:Performed By: #### JAMES STARR, 1987-08, 07828-0 #### [facility] ([id number]) [address] [place] [address] #### 55248-7 #### [facility] ([id number]) [address], [address] [place], [place] [address]OMLCW CREAT71.06 mg/dLNormalProHca Houston Healthcare MainlandComment on above:Performed By: #### JAMES STARR, 1987-08, 03353-9 #### [facility] ([id number]) [address] [place] [address] 78552 #### 57266-3 #### [facility] ([id number]) [address] [place] [address], [address] [place], [place] [address]Jzrensjbsnh peptide.B prohormone N-Terminal [Mass/Vol]on 93-20-1683GJ Pro BNPSee BelowNormalProMedica San Clemente Hospital And Medical CenterComment on above: Result Comment: NOTE TEST RESULT FLAG UNIT REF.RANGE PRO B Natr Peptide 314 H pg/mL <125 Test Performed By: [place] [address] Cannoneer: Tyler Valle III, M.D. CLIA #[id number] By: #### BMP, CBCA, 1987-, 16979-4 #### [facility] ([id number]) [address] [place] [address] #### 57224-8 #### [facility] ([id number]) [address] [place] [address], [address] [place], [place] [id number] Ql (U)NegativeNormalNEG [facility] CenterComment on above:Performed By: #### UA #### [facility] ([id number]) [address] [place] [id number]/HGBTraceAbnormalNEGProMercy Health West Hospitalca [facility] And [facility] CenterComwalter p. [facility] on above:Performed By: #### UA #### [facility] ([id number]) [address] [place] [address]Psrac (U)YELLOWNormalYELLOWProMedica Weston HospitalComment on above:Performed By: #### UA #### [facility] ([id number]) [address] [place] [address], [place] [address]Ebuwvyo Ql (U)>1000AbnormalNEGProHca Houston Healthcare MainlandComment on above:Performed By: #### UA #### [facility] ([id number]) [address] [place] [address], [place] [address]Wpiclhd Ql (U)NegativeNormalNEGFayette County Memorial Hospital Comment on above:Performed By: #### UA #### [facility] ([id number]) [address] [place] [address], [place] [address]Rhuiojfia esterase Test strip Ql (U)NegativeGreen Cross HospitalComment on above:Result Comment: HIGH CONCENTRATIONS OF GLUCOSE MAY DECREASE THE REACTIVITY OF THE DIPSTICK LEUKOCYTE TEST PAD.Performed By: #### UA #### [facility] ([id number]) [address] [place] [address], [place] [id number]kg [facility] HospitalComment on above:Performed By: #### UA #### [facility] ([id number]) [address] [place] [address], [place] [address]Umjgnzu Ql (U)PositiveLakeHealth Beachwood Medical Center Comment on above:Performed By: #### UA #### [facility] ([id number]) [address] [place] [address], [place] [address]iS (U)6.0 [pH]Normal5.0-8.5POhioHealth Dublin Methodist HospitalComment on above:Performed By: #### UA #### [facility] ([id number]) [address] [place] [address], [place] [address]Haruyia Ql (U)>300AbnormalNEGProHca Houston Healthcare MainlandComment on above:Performed By: #### UA #### [facility] ([id number]) [address] [place] [address] 24960Q.B.CELLS5 /hpfNormal0-5POhioHealth Dublin Methodist HospitalComment on above:Performed By: #### UA #### [facility] ([id number]) [address] [place] [address] 49084Cidgnqsq gravity (U) [Rel density]1.553Clodrb4.003-1.035 [facility] Memorial HospitalComment on above:Performed By: #### UA #### [facility] ([id number]) [address] [place] [address] 58427KQNXIVUN EPITHELIUM4 /hpfNormal0-[address] [place] [address] Comment on above:Performed By: #### UA #### [facility] ([id number]) [address] [place] [address] 70017ITBJKDQLQNJHXIdwsyfhaFMEHVUdnTytuei [facility]remont HospitalComment on above:Performed By: #### UA #### [facility] ([id number]) [address] [place] [address] 72120Quvsnvdcmhru Qn (U)0.2 {Chaya'U}/dLNormal<1.1POhioHealth Dublin Methodist HospitalComment on above:Performed By: #### UA #### [facility] ([id number]) [address] [place] [address] 61505C.B.CELLS>697Fznk3-1DkqGfietsOhioHealth Dublin Methodist HospitalComment on above: Performed By: #### UA #### [facility] ([id number]) [address] [place] [address] 40177BKMRQ CULTUREon 43-27-6269Cfesadzu identified Cx Nom (U) SPECIMEN NOTES URINE RECEIVED WITHOUT PRESERVATIVE CULTURE RESULTS MULTIPLE SPECIES PRESENT. PROBABLE COLLECTION CONTAMINATION. SUGGEST REPEAT SPECIMEN. URINE RECEIVED WITHOUT PRESERVATIVE-DELAYS IN TRANSPORT MAY AFFECT RESULTS.INTERPRET WITH CAUTION AND CLINICAL CORRELATION IS RECOMMENDED.Normal [facility] HospitalComment on above:Performed By: #### JAMES STARR, 1987-08, 18274-2 #### [facility] ([id number]) [address] [place] [address] 43491 #### 48103-4 #### [facility] ([id number]) [address], [address] [place], [place] [address]AOFGZ METABOLIC PANLon 85-74-8640Szliw gap [Moles/Vol]6 mmol/L Normal5-15ProHca Houston Healthcare MainlandComment on above:Performed By: #### JAMES STARR, 1987-08, 29874-8 #### [facility] ([id number]) [address] [place] [address] 62415 #### 98452-0 #### [facility] ([id number]) [address], [address] [place], [place] [address]Kyqzfjx [Mass/Vol]8.6 mg/dLNormal8.5-10.5ProMedica [facility] Clement[facility] Hospital And Medical CenterComment on above:Performed By: #### JAMES STARR, 1987-08, 23250-5 #### [facility] ([id number]) [address] [place] [address] 42167 #### 60152-0 #### [facility] ([id number]) [address], [address] [place], [place] [address]Llvnhhkg [Moles/Vol]101 mmol/FKwuxyf10-714ZfkRxsadfHca Houston Healthcare MainlandComment on above:Performed By: #### JAMES STARR, 1987-08, 75780-3 #### [facility] ([id number]) [address] [place] [address] 51540 #### 73084-3 #### [facility] ([id number]) [address], [address] [place], [place] [address]GN1 [Moles/Vol]19 mmol/VMhj83-28KpzKnhfdeOhioHealth Dublin Methodist Hospital Comment on above:Performed By: #### JAMES STARR, 1987-08, 72484-8 #### [facility] ([id number]) [address] [place] [address] 34961 #### 04028-2 #### [facility] ([id number]) [address] [facility], [address] [place], [place] [address]Gnavyebpbr [Mass/Vol]2.57 mg/dLHigh0.70-1.20[facility] Memorial HospitalComment on above:Result Comment: METHOD TRACEABLE TO IDMS STANDARD Performed By: #### JAMES STARR, 1987-08, #### [facility] ([id number]) [address] [place] [address] 71685 #### 73321-9 #### [facility] ([id number]) [address] [facility], [address] [place], [place] [address]MOJ/1.73 sq M.predicted among non-blacks MDRD (S/P/Bld) [Vol rate/Area]27 mL/min/{1.73_m2}Low>59ProHca Houston Healthcare MainlandComment on above: Result Comment: Reported eGFR is based on the CKD-EPI 2020 equation that does not use a race coefficient.Performed By: #### JAMES STARR, 1987-08, 35122-7 #### [facility] ([id number]) [address] [place] [address] 36930 #### 62986-3 #### [facility] ([id number]) [address] [facility], [address] [place], [place] [address]Avabuhe [Mass/Vol]377 mg/vWEntt45-45YchEpefswFayette County Memorial Hospital Comment on above:Performed By: #### JAMES STARR, 1987-08, 28621-8 #### [facility] ([id number]) [address] [place] [address] 79528 #### 67845-3 #### [facility] ([id number]) [address] [place] [address], [address] [place], [place] [address]Ovkguhfmm [Moles/Vol]4.2 mmol/LNormal3.5-5.0ProHca Houston Healthcare MainlandComment on above:Performed By: #### JAMES STARR, 1987-08, 04458-7 #### [facility] ([id number]) [address] [place] [address] 84219 #### 22222-8 #### [facility] ([id number]) [address] [place] [address], [address] [place] [address]Xtosfv [Moles/Vol]126 mmol/HVre062-663XtwPlncuxHca Houston Healthcare Mainland Comment on above:Performed By: #### JAMES STARR, 1987-08, 87717-6 #### [facility] ([id number]) [address] [place] [address] 67908 #### 72729-8 #### [facility] ([id number]) [address] [place] [address], [address] [place] [address]Reuo nitrogen [Mass/Vol]30 mg/dLHigh5-27ProHca Houston Healthcare MainlandComment on above:Performed By: #### JAMES STARR, 1987-08, 52002-5 #### [facility] ([id number]) [address] [place] [address] 97666 #### 56717-9 #### [facility] ([id number]) [address] [place] [address], [address] [place], [place] [address]IEV AND AUTO DIFFon 83-33-5766HCRIRMLE BASOPHIL0.1 X10E9/LNormal 0.0-0.2ProMedica [facility] Clemente Hospital And Medical CenterComment on above:Performed By: #### JAEMS STARR, 1987-08, 72215-3 #### [facility] ([id number]) [address] [place] [address] 12561 #### 04280-6 #### [facility] ([id number]) [address] [facility], [address] [place], [place] [address]RTKHPWJX NEUTROPHIL8.8 X10E9/LHigh1.5-6.6ProHca Houston Healthcare MainlandComment on above:Performed By: #### MATTY CBCA, 1987-08, 30774-7 #### [facility] ([id number]) [address] [place] [address] 05258 #### 17534-1 #### [facility] ([id number]) [address] [facility], [address] [place], [place] [address]Xntjemjtu/100 WBC (Bld)0.5 %[facility] Comment on above:Performed By: #### MATTY CBCJarrett, 1987-08, 03544-2 #### [facility] ([id number]) [address] [place] [address] 34147 #### 12221-8 #### [facility] ([id number]) [address] [facility], [address] [place], [place] [address]Rwrxfjxcveo (Bld) [#/Vol]0.3 10*3/uLNormal0.0-0.4ProHca Houston Healthcare MainlandComment on above:Performed By: #### MATTY CBCA, 1987-08, 95603-0 #### [facility] ([id number]) [address] [place] [address] 27633 #### 27000-5 #### [facility] ([id number]) [address] [facility], [address] [place], [place] [address]Foeywggdmpt/100 WBC (Bld)2.6 %[facility] Comment on above:Performed By: #### JAMES STARR, 1987-08, 54741-5 #### [facility] ([id number]) [address] [place] [address] 78174 #### 86474-2 #### [facility] ([id number]) [address], [address] [place], [place] [address]Empkwxxgssx distribution width (RBC) [Ratio]15.5 %High11.5-15.0 ProMLucile Salter Packard Children's Hospital at StanfordComment on above:Performed By: #### JAMES STARR, 1987-08, 25037-4 #### [facility] ([id number]) [address] [place] [address] 40528 #### 38008-2 #### [facility] ([id number]) [address], [address] [place], [place] [address]Edmgnazwds (Bld) [Volume fraction]36.8 %Peu67-73MmaQfturwHca Houston Healthcare MainlandComment on above:Performed By: #### JAMES STARR, 1987-08, 32049-6 #### [facility] ([id number]) [address] [place] [address] 06033 #### 80015-7 #### [facility] ([id number]) [address], [address] [place], [place] [address]Rqnemeculx (Bld) [Mass/Vol]12.0 g/dLLow13.0-17.0F[facility] County Memorial HospitalComment on above:Performed By: #### JAMES STARR, 1987-08, 48197-8 #### [facility] ([id number]) [address] [place] [address] 93351 #### 61384-4 #### [facility] ([id number]) [address], [address] [place], [place] [address]Ludqmbizoyh (Bld) [#/Vol]1.9 10*3/uLNormal1.0-3.5ProMedEl Camino HospitalComment on above:Performed By: #### MATTY, CBCA, 1987-08, 96103-1 #### [facility] ([id number]) [address] [place] [address] 52856 #### 20725-7 #### [facility] ([id number]) [address] [facility], [address] [place], [place] [address]Epucxgwzcpo/100 WBC (Bld)15.1 %NormalFayette County Memorial Hospital Comment on above:Performed By: #### MATTY CBCA, 1987-08, 06434-9 #### [facility] ([id number]) [address] [place] [address] 68134 #### 22566-7 #### [facility] ([id number]) [address] [facility], [address] [place], [place] [address]WFS (RBC) [Entitic mass]28.2 txRrxxbe55-78OjbJpskbuFayette County Memorial HospitalComment on above:Performed By: #### MATTY CBCA, 1987-08, 64068-4 #### [facility] ([id number]) [address] [place] [address] 37845 #### 98633-8 #### [facility] ([id number]) [address] [facility], [address] [place], [place] [address]NLUO (RBC) [Mass/Vol]32.7 g/xCPodjxe76-53RuoFqawblFayette County Memorial HospitalComment on above:Performed By: #### MATTY CBCA, 1987-08, 49703-9 #### [facility] ([id number]) [address] [place] [address] 63928 #### 93989-5 #### [facility] ([id number]) [address] [facility], [address] [place], [place] [address]WEP (RBC) [Entitic vol]86 cOXubhee95-550XxxHrhqpv [facility]remont HospitalComment on above:Performed By: #### MATTY CBCJarrett, 1987-08, 02630-5 #### [facility] ([id number]) [address] [place] [address] 88855 #### 91944-7 #### [facility] ([id number]) [address], [address] [place], [place] [address]Rfnhgkfld (Bld) [#/Vol]1.4 10*3/uLHigh0-0.9ProHca Houston Healthcare MainlandComment on above:Performed By: #### MATTY CBCJarrett, 1987-08, 30219-5 #### [facility] ([id number]) [address] [place] [address] 72110 #### 70767-1 #### [facility] ([id number]) [address], [address] [place], [place] [address]Upjaqvpzg/100 WBC (Bld)11.2 %NormalFayette County Memorial Hospital Comment on above:Performed By: #### MATTY CBCJarrett, 1987-08, #### [facility] ([id number]) [address] [place] [address] 40192 #### 15455-8 #### [facility] ([id number]) [address], [address] [place], [place] [address]Gayqxztrkyr/100 WBC (Bld)70.6 %NormalFayette County Memorial Hospital Comment on above:Performed By: #### MATTY CBCJarrett, 1987-08, 87238-6 #### [facility] ([id number]) [address] [place] [address] 05098 #### 47419-2 #### [facility] ([id number]) [address], [address] [place], [place] [address]Qpcybhgn mean volume (Bld) [Entitic vol]7.6 fLNormal7-12 ProMLucile Salter Packard Children's Hospital at StanfordComment on above:Performed By: #### JAMES STARR, 1987-08, #### [facility] ([id number]) [address] [place] [address] 85540 #### 52316-3 #### [facility] ([id number]) [address] [facility], [address] [place], [place] [address]Tfaikpizf (Bld) [#/Vol]325 10*3/cFNootis891-130HneLiqqyq [facility]ont HospitalComment on above:Performed By: #### JAMES STARR, 1987-08, #### [facility] ([id number]) [address] [place] [address] 62293 #### 83220-8 #### [facility] ([id number]) [address] [facility], [address] [place], [place] [address]YQB COUNT4.27 X10E12/LNormal4.10-5.70[facility] Comment on above:Performed By: #### JAMES STARR, 1987-08, #### [facility] ([id number]) [address] [place] [address] 15588 #### 52705-0 #### [facility] ([id number]) [address] [facility], [address] [place], [place] [address]UBX (Bld) [#/Vol]12.5 10*3/uLHigh4.0-11.0ProHca Houston Healthcare MainlandComment on above:Performed By: #### JAMES STARR, 1987-08, 70086-1 #### [facility] ([id number]) [address] [place] [address] 88105 #### 70748-8 #### [facility] ([id number]) [address], [address] [place], [place] [address]BJQ [Mass/Vol]on 04-19-2023 REACTIVE PROTEIN7.8 mg/dLHigh 0.000-0.744ProMedica [facility] Clemente Hospital And Medical CenterComment on above:Performed By: #### JAMES STARR, 1987-08, 36853-2 #### [facility] ([id number]) [address] [place] [address] 74598 #### 36631-6 #### [facility] ([id number]) [address] [facility], [address] [place], [place] [address]TEK Photometric method (Bld) [Velocity]on 68-70-7061QBT, ERYTHROCYTE SEDIMENTATION RHLN665 mm/hHigh0-20ProHca Houston Healthcare MainlandComment on above:Performed By: #### JAMES STARR, 1987-08, 58249-6 #### [facility] ([id number]) [address] [place] [address] 35917 #### 29647-3 #### [facility] ([id number]) [address] [facility], [address] [place], [place] [address]Xwjlkfinyta peptide.B prohormone N-Terminal [Mass/Vol]on 52-82-7811ZX Pro BNPSee BelowNormalProHca Houston Healthcare MainlandComment on above: Result Comment: NOTE TEST RESULT FLAG UNIT REF.RANGE PRO B Natr Peptide 587 H pg/mL <125 Test Performed By: [employer] [address] [place] [address] Cannoneer: Charlotte Hart III #[id number] By: #### BMP, CBCA, 1988-5, 92137-5 #### [facility] ([id number]) [address] [place] [address], [place] [address] #### 97549-6 #### [facility] ([id number]) [address] [place] [address], [address] [place], [place] [address]Ibjtc Metabolic Profon 86-68-2711Lbmpv gap [Moles/Vol]11 mmol/L Normal9-17Ch[facility]icothe Va Medical CenterComment on above:Performed By: #### SED, CRP, BMP, CDP #### [address] [place], [place] [id number] Service Advocate Contact: LENA Mccann/CRE Yozni08Pernld4-85Oxmwr [facility] Comment on above:Performed By: #### SED, CRP, BMP, CDP #### [address] [place] [address] Service Advocate Contact: SHANI Mccannalcium [Mass/Vol]9.4 mg/dLNormal8.6-10.4[facility] Va Medical CenterComment on above:Performed By: #### SED, CRP, BMP, CDP #### [address] [place] [address] Service Advocate Contact: SHANI Mccannhloride [Moles/Vol]98 mmol/NGwuqxs31-256FtnoiChillicothe Va Medical CenterComment on above:Performed By: #### SED, CRP, BMP, CDP #### [facility] [address] [place] [address] [place] [address] Service Advocate Contact: Jameson Aaron MDCO2 [Moles/Vol]18 mmol/DPmc22-77PqfdtChillicothe Va Medical CenterComment on above:Performed By: #### SED, CRP, BMP, CDP #### [address] [place], [place] [address] Service Advocate Contact: SHANI Mccannreatinine [Mass/Vol]2.7 mg/dLHigh0.7-1.2[facility] HospitalComment on above:Performed By: #### EMIGDIO CRP, BMP, CDP #### [address] [place], [place] [address] Service Advocate Contact: Jameson Aaron MDGFR/1.73 sq M.predicted among non-blacks MDRD (S/P/Bld) [Vol rate/Area]26 mL/min/{1.73_m2}Low>60Mer[facility] HospitalComment on above:Result Comment: These results are not intended for [...] or following therapy that affects renal tubular secretion.Performed By: #### EMIGDIO CRP, BMP, CDP #### [address] [place], [facility]83 Service Advocate Contact: Jameson Aaron MDGlucose [Mass/Vol]268 mg/cCGvdx10-43Mvrdp [facility] HospitalComment on above:Performed By: #### EMIGDIO CRP, BMP, CDP #### [address] [place] [address] Service Advocate Contact: CANDACE Mccannotassium [Moles/Vol]5.2 mmol/LNormal3.7-5.3[facility] HospitalComment on above:Performed By: #### EMIGDIO CRP, BMP, CDP #### [address] [place], [place] [address] Service Advocate Contact: BUCK Mccannodium [Moles/Vol]127 mmol/MGnt672-971AfbsqStamford HospitalComment on above:Performed By: #### SED CRP, BMP, CDP #### [address] [place] [address] Service Advocate Contact: Yola Mccann nitrogen [Mass/Vol]44 mg/dLHigh8-23Tr[facility] System HospitalComment on above:Performed By: #### SED, CRP, BMP, CDP #### [address] [place] [address] Service Advocate Contact: SHANI Mccann-Reactive Proteinon 33-34-3268HAK [Mass/Vol]131.1 mg/LHigh0.0-5.0MerSelect Medical [facility] - Dublin HospitalComment on above:Performed By: #### SED, CRP, BMP, CDP #### [address] [place] [address] Service Advocate Contact: SHANI MccannBC with Diffon 29-95-9143Stb. Basophil0.06 k/uL Normal0.00-0.20MerSelect Medical [facility] - Dublin HospitalComment on above:Performed By: #### SED, CRP, BMP, CDP #### [address] [place], [place] [address] Service Advocate Contact: Megan Mccann.Imm.Granulocyte0.11 k/uLNormal0.00-0.30MerSelect Medical [facility] - Dublin HospitalComment on above:Performed By: #### SED, CRP, BMP, CDP #### [address] [place], [place] [address] Service Advocate Contact: Megan Mccann.Neutrophil (Seg)6.83 k/uLNormal1.50-8.10MerSelect Medical [facility] HospitalComment on above:Performed By: #### SED, CRP, BMP, CDP #### [address] [place] [address] Service Advocate Contact: Jameson Aaron MDBasophils/100 WBC (Bld)1 %Normal0-2[facility] HospitalComment on above:Performed By: #### SED, CRP, BMP, CDP #### [address] [place] [address] Service Advocate Contact: Jameson Aaron MDEosinophils (Bld) [#/Vol]0.22 10*3/uLNormal 0.00-0.44MerSelect Medical [facility] HospitalComment on above:Performed By: #### SED, CRP, BMP, CDP #### [address] [place] [address] Service Advocate Contact: Jameson Aaron MDEosinophils/100 WBC (Bld)2 %Normal1-4[facility] HospitalComment on above:Performed By: #### SED, CRP, BMP, CDP #### [address] [place] [address] Service Advocate Contact: Jameson Aaron MDErythrocyte distribution width (RBC) [Ratio]14.6 % High11.8-14.4MerSelect Medical [facility] - Dublin HospitalComment on above:Performed By: #### SED, CRP, BMP, CDP #### [address] [place] [address] Service Advocate Contact: Jameson Aaron MDHematocrit (Bld) [Volume fraction]41.9 %Normal 40.7-50.3[facility] Clinton HospitalComment on above:Performed By: #### SED, CRP, BMP, CDP #### [address] [place] [address] Service Advocate Contact: Jameson Aaron MDHemoglobin (Bld) [Mass/Vol]13.2 g/dLNormal 13.0-17.0[facility] HospitalComment on above:Performed By: #### SED, CRP, BMP, CDP #### [address] [place] [address] Service Advocate Contact: Jameson Aaron MDImmature granulocytes/100 WBC (Bld)1 %Opph7Mbbkt [facility] HospitalComment on above:Performed By: #### SED, CRP, BMP, CDP #### [address] [place] [address] Service Advocate Contact: Jameson Aaron MDLymphocytes (Bld) [#/Vol]1.83 10*3/uLNormal 1.10-3.70[facility] HospitalComment on above:Performed By: #### SED, CRP, BMP, CDP #### [address] [place] [address] Service Advocate Contact: Freddy Mccannhocytes/100 WBC (Bld)18 %Psl85-03HkaczChillicothe Va Medical CenterComment on above:Performed By: #### SED, CRP, BMP, CDP #### [address] [place] [address] Service Advocate Contact: JUAN MccannCH (RBC) [Entitic mass]28.2 eeRupnvw32.2-33.5 [facility] HospitalComment on above:Performed By: #### SED, CRP, BMP, CDP #### [address] [place] [address] Service Advocate Contact: JUAN MccannCHC (RBC) [Mass/Vol]31.5 g/aCLhfnnv74.4-34.8[facility] HospitalComment on above:Performed By: #### SED, CRP, BMP, CDP #### [address] [place] [address] Service Advocate Contact: JUAN MccannCV (RBC) [Entitic vol]89.5 hQUombvi87.6-102.9 [facility] HospitalComment on above:Performed By: #### SED, CRP, BMP, CDP #### [address] [place], [place] [address] Service Advocate Contact: JUAN Mccannonocytes (Bld) [#/Vol]1.42 10*3/uLHigh0.10-1.20 [facility] Medical CenterComment on above:Performed By: #### SED, CRP, BMP, CDP #### [address] [place], [place] [address] Service Advocate Contact: JUAN Mccannonocytes/100 WBC (Bld)14 %High3-12[facility] Va Medical CenterComment on above:Performed By: #### SED, CRP, BMP, CDP #### [address] [place], [place] [address] Service Advocate Contact: Jameson Aaron MDNeutrophil (Seg)64 %Lwtxfn43-37DkilpChillicothe Va Medical CenterComment on above:Performed By: #### SED, CRP, BMP, CDP #### [address] [place], [facility]83 Service Advocate Contact: Jameson Aaron MDNRBC Automated0.0 per 100 WBCNormal0.0Ch[facility]icothe Va Medical CenterComment on above:Performed By: #### SED, CRP, BMP, CDP #### [address] [place] [address] Service Advocate Contact: Jayy Mccann mean volume (Bld) [Entitic vol]9.4 fL Normal8.1-13.5[facility] Va Medical CenterComwalter p. reuther [facility] on above:Performed By: #### SED, CRP, BMP, CDP #### [address] [place], [facility]83 Service Advocate Contact: CANDACE Mccannlatelets (Bld) [#/Vol]266 10*3/hBGvqbut301-313 [facility]Com[facility] on above:Performed By: #### SED, CRP, BMP, CDP #### [address] [place] [address] Service Advocate Contact: Jameson Aaron MDRBC (Bld) [#/Vol]4.68 10*6/uLNormal4.21-5.77[facility] HospitalComment on above:Performed By: #### SED, CRP, BMP, CDP #### [facility] [address] [place], [place] [id number] Service Advocate Contact: KATHRYN Mccann ([facility]) [#/Vol]10.5 10*3/uLNormal3.5-11.3[facility] HospitalComment on above:Performed By: #### SED, CRP, BMP, CDP #### [facility] [address] [place], [facility]83 Service Advocate Contact: BUCK Mccannedimentation Rateon [id number] Rate 114 mm/HrHigh0-20[facility] CenterComment on above:Performed By: #### EMIGDIO, CRP, BMP, CDP #### [facility] [address] [place], [facility]83 Service Advocate Contact: AKIKO Mccann CULTUREon [id number] (Mycology) CultureFinal [facility] HospitalComment on above:Performed By: #### CXFUN ####[facility] [address] [place], [place] [address]Dr. Eddie Petersonngus StainFinal [facility] HospitalComment on above:Performed By: #### CXFUN ####[facility] Dsl[address] [place], [place] [address]Dr. Eddie LernerResult 1CommentJoint Township District Memorial HospitalComment on above:Result Comment: ANNEMARIE/Calcofluor preparation: no fungus observed.Performed By: #### CXFUN ####[facility] [address] [place], [place] [address]Dr. Eddie LernerResult 1Candida albicansAbMercy Health Tiffin HospitalComment on above:Performed By: #### CXFUN ####[facility] [address] [place], [place] [address]Dr. Eddie Lazaro OTHER on [id number] OTHERIsolate 1 Enterococcus faecalis Light growth of ORGANISM 1 Enterococcus faecalis ANTIBIOTIC M.I.C RX STATUS Beta-Lactamase Neg NEG F Benzylpenicillin 0.5 S F Ampicillin <=2 S F Gentamicin High Level (synergy) SYN-R R F Streptomycin High Level (synergy) SYN-S S F Quinupristin/Dalfopristin 4 R F Linezolid 1 S F Vancomycin 1 S FNormalThe Ohiohealth Berger HospitalComment on above:Performed By: #### OTHCX ####[facility] [address] [address]Dr. Eddie LernerACID FAST SMEAR AND CXon [id number] Fast SmearNegative NormalMagruder HospitalComment on above:Performed By: #### AFB ####[facility] Ux[address]yfzs[address] [address]DrMinal LernerAFB Specimen ProcessingTissue [facility] HospitalComwalter p. [facility] on above: Performed By: #### AFB ####[facility] Jzuzifyf[address] [place], [place] [address]DrMinal LernerBNPon [id number] peptide B (Bld) [Mass/Vol]648.0 pg/mLNormal<=900.0The [facility] HospitalComment on above: Performed By: #### A1C #### [facility] [address] [address] [address] Eddie Lazaro ANAEROBICon [id number] ANAEROBICCulture Observations: NO GROWTH OF ANAEROBES AT 72 HOURS.NormalThe [facility] HospitalComment on above: Performed By: #### ANACX ####[facility] Z[address] [place], [place] [address]DrVaishali LernerGLYCOHEMOGLOBIN A1Con [id number] RECOMMENDATIONSEE [facility] CenterComwalter p[facility] on above:Result Comment: ADA RECOMMENDED LIMIT 4.0 - 6.0 ADA THERAPEUTIC TARGET < 7.0 ACTION SUGGESTED > 7.0Performed By: #### RENAL, LIPID, LIVER, TSH #### [facility] [address] [address] [address] Eddie LernerGlucose [Mass/Vol]235 mg/dLJoint Township District Memorial HospitalComment on above:Performed By: #### RENAL, LIPID, LIVER, TSH #### [facility] [address] [address] [address] Eddie LernerHbA1c (Bld) [Mass fraction]9.8 %Critically high4.5-6.2Magruder HospitalComment on above:Performed By: #### RENAL, LIPID, LIVER, TSH #### [facility] [address] [address] [address] Eddie Newman STAINon [id number] ORGANISMS OBSERVEDJoint Township District Memorial HospitalComment on above:Performed By: #### GSTAIN ####[facility] By[address]cpvrt[address] [address]Dr. Eddie Lerner DIPHTHEROIDSJoint Township District Memorial HospitalComment on above:Performed By: #### GSTAIN ####[facility] B[address]grsluoc[address] [address]Dr. Yilan ChangEPITHELIALSJoint Township District Memorial HospitalComment on above: Performed By: #### GSTAIN ####[facility] Dpdjeabaai[address] [place], [place] [address]Dr. Yilan ChangFUNGAL ELEMENTSJoint Township District Memorial HospitalComment on above:Performed By: #### GSTAIN ####[facility] Eghvxsscpp[address] [address]Dr. Yilan ChangGRAM NEG BACILLIJoint Township District Memorial Hospital HospitalComment on above:Performed By: #### GSTAIN ####[facility] Xrilurnccj[address] [address]Dr. Yilan ChangGRAM NEG DIPPLOCOCCIJoint Township District Memorial Hospital HospitalComment on above: Performed By: #### GSTAIN ####[facility] Wrzudebphg[address] [place], [place] [address]Dr. Yilan ChangGRAM POS BACILLIJoint Township District Memorial Hospital HospitalComment on above:Performed By: #### GSTAIN ####[facility] [address]ekexyfk[address] [address]Dr. Yiquincy ChangGRAM POSITIVE COCCNorwalk Memorial HospitalComment on above:Performed By: #### GSTAIN ####[facility] [address]cllxixyta[address] [address]Dr. Yiquincy ChangGRAM STAIN SOURCELt Foot Corey HospitalComment on above:Performed By: #### GSTAIN ####[facility] [address]uf[address]txagw[address] [address]Dr. Yilan ChangGS_DIPKettering Health Preble Comment on above:Performed By: #### GSTAIN ####[facility] O[address]wsrzyd[address] [address]Dr. Eddie ChangWBCRARENormalMagruder HospitalComment on above:Performed By: #### GSTAIN ####[facility] Nhgtjbxher[address] [address]Dr. Eddie ChangLIPID PROFILE on 97-62-3860TABD-HDL RATIO NORMSEast Ohio Regional HospitalComment on above:Result Comment: 3.3 - 4.4 LOW RISK 4.4 - 7.1 AVERAGE RISK 7.1 - 11.0 MODERATE RISK >11.0 HIGH RISKPerformed By: #### A1C #### [facility] [address] [address] [address] Eddie LernerCholesterol [Mass/Vol]137 mg/dLNormal<=200[facility] Comment on above:Performed By: #### A1C #### [facility] [address] [address] [address] Eddie LernerCholesterol in HDL [Mass/Vol]54 mg/mXBckxtf74-20JlnMagruder HospitalComwalter p. reuther psychiatric hospital on above:Performed By: #### A1C #### [facility] [address] [address] [address] Eddie LernerCholesterol in LDL [Mass/Vol]63.2 mg/dLJoint Township District Memorial HospitalComwalter p. reuther psychiatric hospital on above:Performed By: #### A1C #### [facility] [address] [address] [address] Eddie LernerCholesterol.total/Cholesterol in HDL [Mass ratio]2.5 {ratio} NormalThe [facility] HospitalComment on above:Performed By: #### A1C #### [facility] [address] [address] [address] Eddie Powell NORMAL> or = 60 mg/dl - LOW CARDIOVASCULAR RISK <40 mg/dl - HIGH CARDIOVASCULAR RISKJoint Township District Memorial HospitalComment on above:Performed By: #### A1C #### [facility] [address] [address] [address] Eddie LernerLDL CALC NORMALSEE BELOWJoint Township District Memorial HospitalComment on above:Result Comment: <100 mg/dl OPTIMAL 100 - 129 mg/dl NEAR OR ABOVE OPTIMAL 130 - 159 mg/dl BORDERLINE HIGH 160 - 189 mg/dl HIGH >190 mg/dl VERY HIGH Performed By: #### A1C #### [facility] [address] [address] [address] Eddie LernerTriglyceride [Mass/Vol]99 mg/dLNormal<=150The [facility] Comment on above:Performed By: #### A1C #### [facility] [address] [address] [address] Eddie AkersLDL CALC19.8 mg/dLNoDunlap Memorial HospitalComwalter p. reuther psychiatric hospital on above: Performed By: #### A1C #### [facility] [address] [address] [address] Eddie Kirk PROFILEon 71-97-1112Zhdqkxs [Mass/Vol]2.8 g/dLCritically low3.4-5.0The [facility] HospitalComment on above:Performed By: #### A1C #### [facility] [address] [address] [address] Eddie LernerAlbumin/Globulin [Mass ratio]0.6 {ratio}NormalThe [facility] HospitalComment on above:Performed By: #### A1C #### [facility] [address] [address] [address] Eddie WoodP [Catalytic activity/Vol]87 U/WBvxbvm97-991Jfh Pauline HospitalComment on above:Performed By: #### A1C #### [facility] [address] [address] [address] Eddie Pagan [Catalytic activity/Vol]49 U/GTflzom02-02Yvv [facility] HospitalComment on above:Performed By: #### A1C #### [facility] [address] [address] [address] Eddie Mills [Catalytic activity/Vol]36 U/ELpbguj19-30Fhy [facility] on above:Performed By: #### A1C #### [facility] [address] [address] [address] Eddie WatsonI, CONJUGATED0.1 mg/dLNormal0.0-0.2[facility] Comment on above:Performed By: #### A1C #### [facility] [address] [address] [address] Eddie Watsonirubin [Mass/Vol]0.4 mg/dLNormal0.2-1.0[facility] Comment on above:Performed By: #### A1C #### [facility] [address] [address] [address] Eddie LernerGlobulin (S) [Mass/Vol]4.4 g/dLNormalThe [facility] on above:Performed By: #### A1C #### [facility] [address] [address] [address] Eddie LernerProtein [Mass/Vol]7.2 g/dLNormal6.4-8.2[facility] Comment on above:Performed By: #### A1C #### [facility] [address] [address] [address] Eddie LernerQUINWOOD OF [facility] GLUCOSEon 54-60-7185Jfymugv [Mass/Vol]107 mg/dL Critically qale35-154VhrAshtabula County Medical Center on above:Performed By: #### POCGLUC #### [facility] [address] [address] [address] Eddie LernerGlucose [Mass/Vol]108 mg/dLCritically wsls09-486Enm Pauline HospitalComment on above:Performed By: #### POCGLUC ####[facility] [address]me[address] [address]Dr. Eddie LernerTSHon 99-31-9260KHQ5.247 uIU/mLNormal0.358-3.740The [facility] on above: Performed By: #### A1C #### [facility] [address] [address] [address] Eddie LernerCBC AUTO DIFFon 43-24-5931KQXJ #0.0 103/ulNormal0.0-0.1The [facility] HospitalComment on above:Performed By: #### CBC ####[facility] Hbykbczwvb[address] [place], [place] [address]Dr.Eddie LernerBasophils/100 WBC (Bld)0.4 %Normal0.2-2.0The [facility] on above:Performed By: #### CBC ####[facility] Ijnrdfilgt[address] [place], [place] [address]Dr.Eddie ChangEO #0.2 103/ulNormal0.0-0.7The [facility] HospitalComwalter p. reuther psychiatric hospital on above:Performed By: #### CBC ####[facility] Twakcplzqu[address] [place], [place] [address]Dr.Eddie ChangEosinophils/100 WBC (Bld)2.0 %Normal 0.9-7.0The [facility] on above:Performed By: #### CBC ####[facility] Egvanddesy[address] [place], [place] [address]Dr.Eddie Lerner Erythrocyte distribution width (RBC) [Ratio]14.5 %Fzkyee24.0-15.0The [facility] - Dublinment on above:Performed By: #### CBC ####[facility] Q[address]qteqnm[address] [place], [place] [address]Dr.Eddie LernerHematocrit (Bld) [Volume fraction]40.5 %Critically low42.0-54.0The [facility] - Dublinment on above:Performed By: #### CBC ####[facility] [address]hab[address] [address]Dr.Eddie LernerHemoglobin (Bld) [Mass/Vol]13.1 g/dL Critically low14.0-18.0The [facility] HospitalComment on above:Performed By: #### CBC ####[facility] Kpmzzcrrck[address] [place], [place] [address]Dr. Eddie ChangIG #0.12 10e3/ulCritically high0.00-0.03The [facility] HospitalComment on above:Performed By: #### CBC ####[facility] Gpdzcwdxuf[address] [place], [place] [address]Dr.Eddie ChangIG %1.2 %Critically high0.0-0.5The [facility] HospitalComment on above:Performed By: #### CBC ####[facility] Muvfxtfshw[address] [place], [place] [address]Dr.Eddie LernerLYMPH #1.4 103/ulNormal1.2-3.8The [facility] HospitalComment on above:Performed By: #### CBC ####[facility] Rncrwrbpli[address] [place], [place] [address]Dr. Eddie LernerLymphocytes/100 WBC (Bld)13.6 %Critically low20.5-60.0The [facility] HospitalComment on above:Performed By: #### CBC ####[facility] Ywethelnxq19[address] [place], [place] [address]Dr.Eddie LernerMANUAL DIFF REQ NONormalThe [facility] HospitalComment on above:Performed By: #### CBC ####[facility] Mmfuexhhsn[address] [place], [place] [address]Dr. Eddie LernerMCH (RBC) [Entitic mass]29.8 udGhgeul71.9-34.0The [facility] Comment on above:Performed By: #### CBC ####[facility] Ovfkqkatql69[address] [place], [place] [address]Dr.Eddie YannMCHC (RBC) [Mass/Vol]32.3 g/dL Joqslg63.9-35.2The [facility] HospitalComment on above:Performed By: #### CBC ####[facility] [address]jbft[address] [address]Dr. Eddie YannMCV (RBC) [Entitic vol]92.0 aXEyqmlp62.0-94.0The [facility] Comment on above:Performed By: #### CBC ####[facility] [address]yssdlr[address] [address]Dr.Eddie LernerMONO #0.5 103/ulNormal0.3-0.8 The [facility] HospitalComment on above:Performed By: #### CBC ####[facility] Ljhdnhwqqd[address] [place], [place] [address]Dr.Dainaquincy Lerner Monocytes/100 WBC (Bld)4.8 %Normal1.7-12.0The [facility] HospitalComment on above: Performed By: #### CBC ####[facility] Vkroipezvg[address] [place], [place] [address]Dr.Eddie LernerNEUT #8.1 103/ulCritically high1.4-6.5 The [facility] HospitalComment on above:Performed By: #### CBC ####[facility] Rqewydrzyy65[address] [place], [place] [address]Dr.Dainaquincy Lerner Neutrophils/100 WBC (Bld)78.0 %Critically high43.0-75.0The [facility] Comment on above:Performed By: #### CBC ####[facility] Rpfppccbjw[address] [place], [place] [address]Dr.Dainaquincy LernerPlatelet mean volume (Bld) [Entitic vol]8.6 fLCritically low9.5-13.5The [facility] HospitalComment on above: Performed By: #### CBC ####[facility] Zbrotkekgl[address] [place], [place] [address]Dr.Eddie LernerPLT240 103/vcGnokep643-940Fpk [facility] HospitalComment on above:Performed By: #### CBC ####[facility] Onlpcayqmi[address] [place], [place] [address]Dr.Eddie LernerRBC4.40 106/ul Critically low4.70-6.10The [facility] HospitalComment on above:Performed By: #### CBC ####[facility] [address]ujl[address] [address]Dr. Eddie LernerWBC10.3 103/ulNormal4.0-11.0The [facility] HospitalComment on above: Performed By: #### CBC ####[facility] [address]azns[address] [address]Dr.Yilan LernerCRPon 82-91-3360YID [Mass/Vol]mg/LNormal <=1.0The [facility] HospitalComment on above:Performed By: #### A1C #### [facility] [address] [address] [address] Eddie LernerPROF CHEM 8 (BAS METB)on 26-96-7538Nytpy gap [Moles/Vol]14.4 mmol/LNormalThe [facility] HospitalComment on above:Performed By: #### A1C #### [facility] [address] [address] [address] Eddie LernerCalcium [Mass/Vol]9.2 mg/dLNormal8.5-10.1The [facility] Comment on above:Performed By: #### A1C #### [facility] [address] [address] [address] Eddie LernerChloride [Moles/Vol]101 mmol/TPublbd19-387Qxj [facility] Comment on above:Performed By: #### A1C #### [facility] [address] [address] [address] Eddie LernerCO2 [Moles/Vol]25.2 mmol/OErxizk98.0-32.0The [facility] Comment on above:Performed By: #### A1C #### [facility] [address] [address] [address] Eddie LernerCreatinine [Mass/Vol]3.07 mg/dLCritically high0.70-1.30The [facility] HospitalComment on above:Performed By: #### A1C #### [facility] [address] [address] [address] Morgan ChangEGFR-AF WYNLJLJM44 mL/min/1.04g4Lvqmvdqaru low>=60The [facility] HospitalComment on above:Performed By: #### A1C #### [facility] [address] [address] [address] Eddie OzunaGFR-NON AF FYRVWEIF57 mL/min/1.60b1Cxeemfccrb low>=60The [facility] HospitalComment on above:Performed By: #### A1C #### [facility] [address] [address] [address] Eddie LernerGlucose [Mass/Vol]415 mg/dLCritically xeqv07-710Dma [facility] HospitalComment on above:Performed By: #### A1C #### [facility] [address] [address] [address] Eddie LernerPotassium [Moles/Vol]5.6 mmol/LCritically high3.5-5.1The [facility] HospitalComment on above:Performed By: #### A1C #### [facility] [address] [place] [address] Dr. Eddie LernerSodium [Moles/Vol]135 mmol/LCritically zdz746-256Tgv [facility] HospitalComment on above:Performed By: #### A1C #### [facility] [address] [place] [address] Dr. Eddie LernerUrea nitrogen [Mass/Vol]34.0 mg/dLCritically high7.0-18.0The [facility] HospitalComment on above:Performed By: #### A1C #### [facility] [address] [place] [address] Dr. Eddie Llanes nitrogen/Creatinine [Mass ratio]11.1 mg/mgNormalThe [facility] HospitalComment on above:Performed By: #### A1C #### [facility] [address] [address] [address] Eddie Ivan RATE WESTERGRENon 31-82-5488SDX RATE59 mm/hrCritically high <=20The [facility] HospitalComment on above:Performed By: #### SEDR ####[facility] [address] [address]Dr. Eddie Graff 23-19-0462Bgnxijcoony peptide B (Bld) [Mass/Vol]1342.0 pg/mLCritically high <=900.0The [facility] HospitalComment on above:Performed By: #### BNP ####[facility] [address] [address]Dr.Yilan Montenegro AUTO DIFFon 03-40-1333RSHN #0.1 103/ulNormal0.0-0.1The [facility] HospitalComment on above:Performed By: #### A1C #### [facility] [address] [address] [address] Eddie LernerBasophils/100 WBC (Bld)0.6 %Normal0.2-2.0The [facility] Comment on above:Performed By: #### A1C #### [facility] [address] [place] [address] Dr. Eddie Wheeler #0.2 103/ulNormal0.0-0.7The [facility] HospitalComment on above: Performed By: #### A1C #### [facility] [address] [address] [address] Eddie Ozunaosinophils/100 WBC (Bld)1.8 %Normal0.9-7.0The [facility] Comment on above:Performed By: #### A1C #### [facility] [address] [address] [address] Eddie Ozunarythrocyte distribution width (RBC) [Ratio]15.2 %Critically high 11.0-15.0The [facility] HospitalComment on above:Performed By: #### A1C #### [facility] [address] [place] [address] Dr. Eddie LernerHematocrit (Bld) [Volume fraction]39.0 %Critically low42.0-54.0 The [facility] HospitalComment on above:Performed By: #### A1C #### [facility] [address] [place] [address] Dr. Eddie LernerHemoglobin (Bld) [Mass/Vol]12.4 g/dLCritically low14.0-18.0The [facility] HospitalComment on above:Performed By: #### A1C #### [facility] [address] [address] [address] Eddie Lowe #0.21 10e3/ulCritically high0.00-0.03The [facility] Comment on above:Performed By: #### A1C #### [facility] [address] [address] [address] Eddie Lowe %1.6 %Critically high0.0-0.5The [facility] HospitalComment on above:Performed By: #### A1C #### [facility] [address] [place] [address] Dr. Eddie Polanco #1.9 103/ulNormal1.2-3.8The [facility] HospitalComment on above:Performed By: #### A1C #### [facility] [address] [place] [address] Dr. Eddie Moranhocytes/100 WBC (Bld)13.8 %Critically low20.5-60.0The [facility] HospitalComment on above:Performed By: #### A1C #### [facility] [address] [place] [address] Dr. Eddie SullivanUAL DIFF REQNONormalThe [facility] HospitalComment on above: Performed By: #### A1C #### [facility] [address] [address] [address] Eddie Irving (RBC) [Entitic mass]27.8 qyBuxobg27.9-34.0The [facility] HospitalComment on above:Performed By: #### A1C #### [facility] [address] [address] [address] Eddie Irving (RBC) [Mass/Vol]31.8 g/xUBftmll31.9-35.2The [facility] HospitalComment on above:Performed By: #### A1C #### [facility] [address] [place] [address] Dr. Eddie Irving (RBC) [Entitic vol]87.4 fIXtaavs40.0-94.0The [facility] HospitalComment on above:Performed By: #### A1C #### [facility] [address] [place] [address] Dr. Eddie Morton #0.8 103/ulNormal0.3-0.8The [facility] HospitalComment on above:Performed By: #### A1C #### [facility] [address] [place] [address] Dr. Eddie Williamsonocytes/100 WBC (Bld)5.9 %Normal1.7-12.0[facility] Comment on above:Performed By: #### A1C #### [facility] [address] [place] [address] Dr. Eddie Warner #10.3 103/ulCritically high1.4-6.5The [facility] Comment on above:Performed By: #### A1C #### [facility] [address] [place] [address] Dr. Eddie Menjivarutrophils/100 WBC (Bld)76.3 %Critically high43.0-75.0The [facility] HospitalComment on above:Performed By: #### A1C #### [facility] [address] [place] [address] Dr. Eddie Perez mean volume (Bld) [Entitic vol]10.2 fLNormal9.5-13.5The [facility] HospitalComment on above:Performed By: #### A1C #### [facility] [address] [place] [address] Dr. Eddie LernerPLT288 103/gqTcxpmy688-827Klu [facility] HospitalComment on above: Performed By: #### A1C #### [facility] [address] [place] [address] Dr. Eddie LernerRBC4.46 106/ulCritically low4.70-6.10The [facility] HospitalComment on above:Performed By: #### A1C #### [facility] [address] [place] [address] Dr. Eddie LernerWBC13.5 103/ulCritically high4.0-11.0[facility] on above:Performed By: #### A1C #### [facility] [address] [address] [address] Eddie LernerGLYCOHEMOGLOBIN A1Con 65-71-3630OHH RECOMMENDATIONSEE BELOWNoLouis Stokes Cleveland VA Medical CenterComment on above:Result Comment: ADA RECOMMENDED LIMIT 4.0 - 6.0 ADA THERAPEUTIC TARGET < 7.0 ACTION SUGGESTED > 7.0Performed By: #### A1C #### [facility] [address] [place] [address] Dr. Eddie LernerGlucose [Mass/Vol]283 mg/dLNoDunlap Memorial HospitalComment on above:Performed By: #### A1C #### [facility] [address] [place] [address] Dr. Eddie LernerHbA1c (Bld) [Mass fraction]11.5 %Critically high4.5-6.2The [facility] HospitalComment on above:Performed By: #### A1C #### [facility] [address] [place] [address] Dr. Eddie LernerLIPID PROFILEon 38-28-5493YNEP-HDL RATIO NORMSEE [facility] CenterComment on above:Result Comment: 3.3 - 4.4 LOW RISK 4.4 - 7.1 AVERAGE RISK 7.1 - 11.0 MODERATE RISK >11.0 HIGH RISKPerformed By: #### RENAL, LIPID, LIVER, TSH #### [facility] [address] [place] [address] Dr. Eddie LernerCholesterol [Mass/Vol]152 mg/dLNormal<=200The [facility] Comment on above:Performed By: #### RENAL, LIPID, LIVER, TSH #### [facility] [address] [place] [address] Dr. Eddie LernerCholesterol in HDL [Mass/Vol]51 mg/oGAskxqd90-70Lem [facility] HospitalComment on above:Performed By: #### RENAL, LIPID, LIVER, TSH #### [facility] [address] [place] [address] Dr. Eddie Hernandezesterol in LDL [Mass/Vol]61.0 mg/dLElyria Memorial Hospitalment on above:Performed By: #### RENAL, LIPID, LIVER, TSH #### [facility] [address] [place] [address] Dr. Eddie Hazel.total/Cholesterol in HDL [Mass ratio]3.0 {ratio} NormalThe [facility] HospitalComwalter p. [facility] on above:Performed By: #### RENAL, LIPID, LIVER, TSH #### [facility] [address] [place] [address] Dr. Eddie Powell NORMAL> or = 60 mg/dl - LOW CARDIOVASCULAR RISK <40 mg/dl - HIGH CARDIOVASCULAR RISKJoint Township District Memorial HospitalComment on above:Performed By: #### RENAL, LIPID, LIVER, TSH #### [facility] [address] [place] [address] Dr. Eddie Zheng CALC NORMALSEE BELOWJoint Township District Memorial HospitalComment on above:Result Comment: <100 mg/dl OPTIMAL 100 - 129 mg/dl NEAR OR ABOVE OPTIMAL 130 - 159 mg/dl BORDERLINE HIGH 160 - 189 mg/dl HIGH >190 mg/dl VERY HIGH Performed By: #### RENAL, LIPID, LIVER, TSH #### [facility] [address] [place] [address] Dr. Eddie LernerTriglyceride [Mass/Vol]200 mg/dLCritically high<=150The [facility] on above:Performed By: #### RENAL, LIPID, LIVER, TSH #### [facility] [address] [place] [address] Dr. Eddie AkersLDL CALC40.0 mg/dLJoint Township [facility] on above: Performed By: #### RENAL, LIPID, LIVER, TSH #### [facility] [address] [place] [address] Dr. Eddie Krik PROFILEon 41-24-2504Ickgtsg [Mass/Vol]2.6 g/dLCritically low3.4-5.0The [facility] HospitalComwal[facility] on above:Performed By: #### RENAL, LIPID, LIVER, TSH #### [facility] [address] [address] [address] Eddie LernerAlbumin/Globulin [Mass ratio]0.6 {ratio}NormalThe [facility] - Dublinment on above:Performed By: #### RENAL, LIPID, LIVER, TSH #### [facility] [address] [address] [address] Eddie Bower [Catalytic activity/Vol]120 U/LCritically sukz94-469Oax [facility] Dublinment on above:Performed By: #### RENAL, LIPID, LIVER, TSH #### [facility] [address] [address] [address] Eddie Pagan [Catalytic activity/Vol]22 U/WLibrbm28-53Xym [facility] Dublinment on above:Performed By: #### RENAL, LIPID, LIVER, TSH #### [facility] [address] [address] [address] Eddie LernerAST [Catalytic activity/Vol]15 U/RYoetmo52-03Zcm [facility] HospitalComment on above:Performed By: #### RENAL, LIPID, LIVER, TSH #### [facility] [address] [address] [address] Eddie Pandey, CONJUGATED0.1 mg/dLNormal0.0-0.2The [facility] Comment on above:Performed By: #### RENAL, LIPID, LIVER, TSH #### [facility] [address] [address] [address] Eddie Watsonirubin [Mass/Vol]0.3 mg/dLNormal0.2-1.0The [facility] Comment on above:Performed By: #### RENAL, LIPID, LIVER, TSH #### [facility] [address] [address] [address] Eddie LernerGlobulin (S) [Mass/Vol]4.7 g/dLNormalThe [facility] HospitalComment on above:Performed By: #### RENAL, LIPID, LIVER, TSH #### [facility] [address] [address] [address] Eddie LernerProtein [Mass/Vol]7.3 g/dLNormal6.4-8.2The [facility] Comment on above:Performed By: #### RENAL, LIPID, LIVER, TSH #### [facility] [address] [address] [address] Eddie BrinkAL FUNCTION PANELon 97-08-4062Lpwzdbp [Mass/Vol]9.0 mg/dL Normal8.5-10.1The [facility] HospitalComment on above:Performed By: #### RENAL, LIPID, LIVER, TSH #### [facility] [address] [address] [address] Eddie LernerChloride [Moles/Vol]96 mmol/LCritically spp94-463Mgo [facility] HospitalComment on above:Performed By: #### RENAL, LIPID, LIVER, TSH #### [facility] [address] [address] [address] Eddie LernerCO2 [Moles/Vol]21.8 mmol/CHtflah57.0-32.0The [facility] Comment on above:Performed By: #### RENAL, LIPID, LIVER, TSH #### [facility] [address] [address] [address] Eddie LernerCreatinine [Mass/Vol]2.38 mg/dLCritically high0.70-1.30The [facility] HospitalComment on above:Performed By: #### RENAL, LIPID, LIVER, TSH #### [facility] [address] [address] [address] Morgan ChangEGFR-AF XKIKJRWI92 mL/min/1.86k2Ahybnwwpio low>=60The [facility] HospitalComment on above:Performed By: #### RENAL, LIPID, LIVER, TSH #### [facility] [address] [address] [address] Morgan ChangEGFR-NON AF TUJQHGPF47 mL/min/1.67m4Jpzhipleln low>=60The [facility] HospitalComment on above:Performed By: #### RENAL, LIPID, LIVER, TSH #### [facility] [address] [address] [address] Eddie LernerGlucose [Mass/Vol]523 mg/dLCritically shnz06-398Bgv [facility] HospitalComment on above:Performed By: #### RENAL, LIPID, LIVER, TSH #### [facility] [address] [address] [address] Eddie LernerPhosphate [Mass/Vol]4.1 mg/dLNormal2.6-4.7The [facility] Comment on above:Performed By: #### RENAL, LIPID, LIVER, TSH #### [facility] [address] [address] [address] Eddie LernerPotassium [Moles/Vol]4.6 mmol/LNormal3.5-5.1The [facility] Comment on above:Performed By: #### RENAL, LIPID, LIVER, TSH #### [facility] [address] [place] [address] Dr. Eddie LernerSodium [Moles/Vol]128 mmol/LCritically wkw724-973Uea [facility] HospitalComment on above:Performed By: #### RENAL, LIPID, LIVER, TSH #### [facility] [address] [place] [address] Dr. Eddie Llanes nitrogen [Mass/Vol]28.0 mg/dLCritically high7.0-18.0The [facility] HospitalComment on above:Performed By: #### RENAL, LIPID, LIVER, TSH #### [facility] [address] [place] [address] Dr. Eddie Summers 90-01-2386UAC0.308 uIU/mLNormal0.358-3.740The [facility] HospitalComment on above:Performed By: #### RENAL, LIPID, LIVER, TSH #### [facility] [address] [place] [address] Dr. Eddie Max 05-10-6113Bqlltxedz Ql (U)NegativeNormalNEGATIVEThe [facility] HospitalComment on above:Performed By: #### UA #### [facility] [address] [place] [address] Dr. Eddie LernerClarity (U)CLEARNormalCLEARThe [facility] HospitalComment on above: Performed By: #### UA #### [facility] [address] [address] [address] Eddie Espinallor (U)LT. YELLOWNormalYELLOWMagruder HospitalComment on above:Performed By: #### UA #### [facility] [address] [address] [address] Eddie LernerGlucose Ql (U)>1000AbnormalNEGATIVEThe [facility] HospitalComment on above:Performed By: #### UA #### [facility] [address] [place] [address] Dr. Eddie LernerHemoglobin Ql (U)TRACE-INTACTAbnormalNEGATIVEMagruder HospitalComment on above:Performed By: #### UA #### [facility] [address] [place] [address] Dr. Eddie Mcknightones Ql (U)NegativeNormalNEGATIVEMagruder HospitalComment on above:Performed By: #### UA #### [facility] [address] [address] [address] Eddie LernreLEUKOCYTESNegativeNormalNEGATIVEMagruder HospitalComment on above:Performed By: #### UA #### [facility] [address] [place] [address] Dr. Eddie LernerNitrite Ql (U)NegativeNormalNEGATIVEMagruder HospitalComment on above:Performed By: #### UA #### [facility] [address] [place] [address] Dr. Eddie LernerpH (U)6.5 [pH]Normal5-9The [facility] HospitalComment on above: Performed By: #### UA #### [facility] [address] [address] [address] Eddie LernerSPEC GRAVITY1.768Pcumkz5.005-<=1.025The [facility] HospitalComment on above:Performed By: #### UA #### [facility] [address] [place] [address] Dr. Eddie Marino NFDEHWO328 mg/dlAbnormalNEGATIVE/ TRACEThe [facility] Comment on above:Performed By: #### UA #### [facility] [address] [place] [address] Dr. Eddie Mogran Qn (U)0.2 {Chaya'U}/dLNormal0.2 - 1.0Magruder HospitalComment on above:Performed By: #### UA #### [facility] [address] [address] [address] Eddie LernerVITAMIN D 25 OHon 04-58-8692DKM D 25-OH13.9 ng/mLNormalThe [facility] HospitalComment on above:Performed By: #### VITAD ####[facility] [address] [place], [place] [address]Dr. Eddie LernerVIT D RANGES SEE [facility] [place] [facility] CenterComment on above:Result Comment: <20 ng/mL Vit D deficient 20 - <30 ng/mL Vit D insufficient 30 - 100 ng/mL Vit D sufficient >100 ng/mL Potential ToxicityPerformed By: #### VITAD ####[facility] [address] [place], [place] [address]Dr. Eddie LernerACID FAST SMEAR AND CXon 56-66-0067Erme Fast CultureNegativeJoint Township District Memorial HospitalComment on above:Result Comment: No acid fast bacilli isolated after 6 weeks.Performed By: #### AFB ####[facility] [address] [place], [place] [address]Dr.Eddie LernerAcid Fast SmearNegativeJoint Township District Memorial HospitalComment on above:Performed By: #### AFB ####[facility] [address] [place], [place] [address]Dr.Eddie LernerAFB Specimen ProcessingTissue GrMercy Health West HospitalComwalter p. reuther psychiatric hospital on above:Performed By: #### AFB ####[facility] [address] [place], [place] [address]Dr.Eddie LernerFUNGAL CULTUREon 76-24-0273Mzlpch (Mycology) CultureFinal reportNoDunlap Memorial HospitalComment on above:Performed By: #### RENAL, LIPID, LIVER, TSH #### [facility] [address] [address] [address] Eddie Walker StainFinal reportJoint Township District Memorial HospitalComment on above:Performed By: #### RENAL, LIPID, LIVER, TSH #### [facility] [address] [address] [address] Eddie Sutton 1CommentJoint Township District Memorial HospitalComment on above:Result Comment: ANNEMARIE/Calcofluor preparation: no fungus observed.Performed By: #### RENAL, LIPID, LIVER, TSH #### [facility] [address] [address] [address] Eddie Sutton Comment: No yeast or mold isolated after 4 weeks.POINT OF CARE GLUCOSEon 84-89-8838Ykfyjdf [Mass/Vol]177 mg/dLCritically uxfb58-195Uvi [facility] HospitalComment on above:Performed By: #### A1C #### [facility] [address] [address] [address] Eddie LernerGlucose [Mass/Vol]200 mg/dLCritically hzyv18-037LehMagruder HospitalComment on above:Performed By: #### POCGLUC ####[facility] [address] [address]. Eddie LernerCovid-19 PCR (CVDWESTERN MASSACHUSET[facility])on 40-42-4521BWAS-CoV-2 (COVID-19) RNA SUDHA+probe Ql (Unsp spec)Not detectedNormalNOT DETECTEDThe [facility] on above:Result Comment: This test is not yet approved or cleared by the [place] FDA. When there are no FDA-approved or cleared tests available, and other criteria are met, FDA can make tests available under an emergency access mechanism called an Emergency Use Authorization (EUA). The EUA for this test is supported by the [place] of Health and Human Service's (HHS's) declaration [...] of clinical signs and symptoms consistent with SARS-CoV-2.Performed By: #### A1C #### [facility] [address] [place] [address] Dr. Eddie LernerPROF CHEM 8 (BAS METB)on 04-84-7019Kbsji gap [Moles/Vol]15.0 mmol/LNormalMagruder HospitalComment on above:Performed By: #### RENAL, LIPID, LIVER, TSH #### [facility] [address] [place] [address] Dr. Eddie LernerCalcium [Mass/Vol]9.3 mg/dLNormal8.5-10.1[facility] Comment on above:Performed By: #### RENAL, LIPID, LIVER, TSH #### [facility] [address] [place] [address] Dr. Eddie LernerChloride [Moles/Vol]105 mmol/SEhfpry72-979PbfMagruder Hospital Comment on above:Performed By: #### RENAL, LIPID, LIVER, TSH #### [facility] [address] [place] [address] Dr. Eddie LernerCO2 [Moles/Vol]22.1 mmol/ZMknhdn90.0-32.0[facility] Comment on above:Performed By: #### RENAL, LIPID, LIVER, TSH #### [facility] [address] [place] [address] Dr. Eddie LernerCreatinine [Mass/Vol]2.29 mg/dLCritically high0.70-1.30The [facility] HospitalComment on above:Performed By: #### RENAL, LIPID, LIVER, TSH #### [facility] [address] [place] [address] Dr. Morgan ChangEGFR-AF GBTNGVYD41 mL/min/1.77d2Cqaklqtbcl low>=60The [facility] HospitalComment on above:Performed By: #### RENAL, LIPID, LIVER, TSH #### [facility] [address] [address] [address] Morgan ChangEGFR-NON AF JYPWJOLW41 mL/min/1.28k1Vvvtmfsfsn low>=60The [facility] HospitalComment on above:Performed By: #### RENAL, LIPID, LIVER, TSH #### [facility] [address] [address] [address] Eddie LernerGlucose [Mass/Vol]115 mg/dLCritically wufm34-108Lgp [facility] HospitalComment on above:Performed By: #### RENAL, LIPID, LIVER, TSH #### [facility] [address] [address] [address] Eddie LernerPotassium [Moles/Vol]5.1 mmol/LNormal3.5-5.1[facility] Comment on above:Performed By: #### RENAL, LIPID, LIVER, TSH #### [facility] [address] [address] [address] Eddie LernerSodium [Moles/Vol]137 mmol/UIqvucx920-674Klf [facility] Comment on above:Performed By: #### RENAL, LIPID, LIVER, TSH #### [facility] [address] [address] [address] Eddie LernerUrea nitrogen [Mass/Vol]26.0 mg/dLCritically high7.0-18.0The [facility] HospitalComment on above:Performed By: #### RENAL, LIPID, LIVER, TSH #### [facility] [address] [address] [address] Eddie Llanes nitrogen/Creatinine [Mass ratio]11.4 mg/mgNoDunlap Memorial HospitalComment on above:Performed By: #### RENAL, LIPID, LIVER, TSH #### [facility] [address] [address] [address] Eddie Stover CULTUREon 04-41-0063Ryqvhaxyr Culture, Extended Incubation Final reportNoDunlap Memorial HospitalComment on above:Performed By: #### CXTISSU ####[facility] [address] [address]Dr[address] Eddie Sutton [address] [place], [place] [address]Comment on above: Result Comment: Diphtheroids, not Corynebacterium jeikeium Light growth Susceptibility not normally performed on this organism.Performed By: #### CXTISSU ####[facility] [address] [id number]. Eddie Hilarioult Comment: No anaerobes recovered.Tissue CultureFinal reportThe Surgical Hospital at SouthwoodsComment on above:Performed By: #### CXTISSU ####[facility] [address] [address]Dr. Eddie LernerSOUTH [facility] LANIER GLUCOSEon 74-07-6147Adbpdfs [Mass/Vol]89 mg/dLNormal 74-106Magruder HospitalComment on above:Performed By: #### RENAL, LIPID, LIVER, TSH #### [facility] [address] [address] [address] Eddie LernerGlucose [Mass/Vol]85 mg/qHVjxsyf45-997QufMagruder Hospital Comment on above:Performed By: #### POCGLUC ####[facility] [address] [address]. Eddie Newman STAINon 12-21-2021 COMMENTSNO [facility] HospitalComwalter p[facility] on above: Performed By: #### RENAL, LIPID, LIVER, TSH #### [facility] [address] [address] [address] Eddie OliveraPHTHEROIDSJoint Township District Memorial HospitalComment on above:Performed By: #### RENAL, LIPID, LIVER, TSH #### [facility] [address] [address] [address] Eddie ClaytonALSJoint Township District Memorial HospitalComwalter p. [facility] psychiatric hospital on above:Performed By: #### RENAL, LIPID, LIVER, TSH #### [facility] [address] [address] [address] Eddie Slaughter ELEMENTSJoint Township District Memorial HospitalComment on above: Performed By: #### RENAL, LIPID, LIVER, TSH #### [facility] [address] [address] [address] Eddie Newman NEG BACILLIJoint Township District Memorial HospitalComment on above: Performed By: #### RENAL, LIPID, LIVER, TSH #### [facility] [address] [address] [address] Eddie Newman NEG DIPPLOCOCCIJoint Township District Memorial HospitalComwalter p. [facility] psychiatric hospital on above: Performed By: #### RENAL, LIPID, LIVER, TSH #### [facility] [address] [address] [address] Eddie Newman POS BACILLIJoint Township District Memorial HospitalComwalter p. reuther psychiatric hospital on above: Performed By: #### RENAL, LIPID, LIVER, TSH #### [facility] [address] [address] [address] Eddie Newman POSITIVE COCCINoDunlap Memorial HospitalComment on above: Performed By: #### RENAL, LIPID, LIVER, TSH #### [facility] [address] [address] [address] Eddie Newman STAIN SOURCELt 1st Metatarsal BoneJoint Township District Memorial HospitalComment on above:Performed By: #### RENAL, LIPID, LIVER, TSH #### [facility] [address] [address] [address] Eddie Morales_DIPTHJoint Township District Memorial HospitalComwalter p. reuther psychiatric hospital on above:Performed By: #### RENAL, LIPID, LIVER, TSH #### [facility] [address] [address] [address] Eddie MorleyBCRARENormalMagruder HospitalComwalter p. [facility]uther psychiatric hospital on above:Performed By: #### RENAL, LIPID, LIVER, TSH #### [facility] [address] [address] [address] Eddie LernerSOUTH [facility] LANIER GLUCOSEon 71-54-7078Qkfiuzs [Mass/Vol]148 mg/dL Critically wnll65-151PulMagruder HospitalComment on above:Performed By: #### A1C #### [facility] [address] [address] [address] Eddie LernerGlucose [Mass/Vol]100 mg/hUVkyhof29-005Igv [facility] Comment on above:Performed By: #### POCGLUC ####[facility] [address] [place], [place] [address]Ix. Eddie ChangGlucose [Mass/Vol]85 mg/dL Kxpcds54-137KubMagruder HospitalComment on above:Performed By: #### POCGLUC ####[facility] [address] [place], [place] [address]Zf. Eddie ChangGlucose [Mass/Vol]83 mg/zWZdrlih88-463SmfMagruder HospitalComment on above:Performed By: #### RENAL, LIPID, LIVER, TSH #### [facility] [address] [place], [place] [address] Dr. Eddie LernerCovid-19 PCR (CVDTB)on 52-42-5744VDHU-CoV-2 (COVID-19) RNA SUDHA+probe Ql (Unsp spec)Not detectedNormalNOT DETECTEDMagruder Hospital Comment on above:Result Comment: This test is not yet approved or cleared by the [place] FDA. When there are no FDA-approved or cleared tests available, and other criteria are met, FDA can make tests available under an emergency access mechanism called an Emergency Use Authorization (EUA). The EUA for this test is supported by the [place] of Health and Human Service's (HHS's) declaration that circumstances exist to justify the emergency use of in vitro diagnostics for the detection and/or diagnosis of the virus that causes COVID- 19. This EUA will remain in effect (meaning [...] of clinical signs and symptoms consistent with SARS-CoV-2.Performed By: #### CVDTBH ####[facility] [address] [place], [place] [address]TrVaishali LernerPROF CHEM 8 (BAS METB)on 60-24-9379Kfpvz gap [Moles/Vol]11.5 mmol/LNormalMagruder HospitalComment on above:Performed By: #### RENAL, LIPID, LIVER, TSH #### [facility] [address] [address] [address] Eddie LernerCalcium [Mass/Vol]9.0 mg/dLNormal8.5-10.1[facility] Comment on above:Performed By: #### RENAL, LIPID, LIVER, TSH #### [facility] [address] [address] [address] Eddie LernerChloride [Moles/Vol]102 mmol/VCpkfyj94-395Abl [facility] Comment on above:Performed By: #### RENAL, LIPID, LIVER, TSH #### [facility] [address] [address] [address] Eddie LernerCO2 [Moles/Vol]24.8 mmol/LYxyzyp13.0-32.0[facility] Comment on above:Performed By: #### RENAL, LIPID, LIVER, TSH #### [facility] [address] [place] [address] Dr. Eddie LernerCreatinine [Mass/Vol]2.19 mg/dLCritically high0.70-1.30The [facility] HospitalComment on above:Performed By: #### RENAL, LIPID, LIVER, TSH #### [facility] [address] [place] [address] Dr. Morgan ChangEGFR-AF ORZOEYSD08 mL/min/1.87h5Bxydnjtblk low>=60The [facility] HospitalComment on above:Performed By: #### RENAL, LIPID, LIVER, TSH #### [facility] [address] [place] [address] Dr. Morgan ChangEGFR-NON AF WIRNNLMZ50 mL/min/1.10w2Hjqfduhluo low>=60The [facility] HospitalComment on above:Performed By: #### RENAL, LIPID, LIVER, TSH #### [facility] [address] [place] [address] Dr. Eddie LernerGlucose [Mass/Vol]330 mg/dLCritically fclo56-112Bpd [facility] HospitalComment on above:Performed By: #### RENAL, LIPID, LIVER, TSH #### [facility] [address] [address] [address] Eddie LernerPotassium [Moles/Vol]5.3 mmol/LCritically high3.5-5.1The [facility] HospitalComment on above:Performed By: #### RENAL, LIPID, LIVER, TSH #### [facility] [address] [address] [address] Eddie LernerSodium [Moles/Vol]133 mmol/LCritically nap833-733Yup [facility] HospitalComment on above:Performed By: #### RENAL, LIPID, LIVER, TSH #### [facility] [address] [address] [address] Eddie LernerUrea nitrogen [Mass/Vol]25.0 mg/dLCritically high7.0-18.0The [place] HospitalComment on above:Performed By: #### RENAL, LIPID, LIVER, TSH #### [facility] [address] [address] [address] Eddie Llanes nitrogen/Creatinine [Mass ratio]11.4 mg/mgNormalThe [facility] HospitalComment on above:Performed By: #### RENAL, LIPID, LIVER, TSH #### [facility] [address] [address] [address] Eddie LernerAlbumin [Mass/volume] in Serum or Plasmaon 54-07-2783Mdiccwk [Mass/Vol]2.0 g/dL3.2-5.5FUniversity Hospitals Samaritan [facility] Center CtrBasophils Auto (Bld) [#/Vol]on 79-16-8977Yuglccbky (Bld) [#/Vol]0.0 10*3/uL0.0-0.2FUniversity Hospitals Samaritan Medical Center CtrBasophils/100 WBC Auto (Bld)on 91-17-7560Cszuktbbb/100 WBC (Bld)0.1 % [facility] CtrBlood anisocytosis detectionon 08-25-2020 Anisocytosis Ql (Bld)SlightClermont County Hospital CtrBlood hemoglobin measurement (mass/volume)on 50-94-0654Wffapowjht (Bld) [Mass/Vol]10.1 g/dL 13.0-17.0[facility] CtrBlood leukocytes automated count (number/volume)on 23-23-9814ZYL (Bld) [#/Vol]12.6 10*3/uL4.5-11.0[facility] CtrBlood polychromasia detection by light microscopyon 15-98-4900Blnsxmsttsqdi LM Ql (Bld)SlightClermont County Hospital Ctr Creatinine and Glomerular filtration rate.predicted panel (S/P/Bld)on 08-25-2020 Creatinine [Mass/Vol]4.06 mg/dL0.64-1.27[facility] Eosinophils Auto (Bld) [#/Vol]on 68-90-3728Jztokgkrxfw (Bld) [#/Vol]0.0 10*3/uL 0.0-0.45[facility] CtrEosinophils/100 WBC Auto (Bld)on 64-62-8503Kbpfashfhbt/100 WBC (Bld)0.1 %[facility] Erythrocyte distribution width Auto (RBC) [Ratio]on 49-67-0582Zggtdojnqtr distribution width (RBC) [Ratio]16.6 %12.0-14.8[facility] Estimated glomerular filtration rate (GFR) non- Americanon 08-25-2020 GFR/1.73 sq M.predicted among non-blacks MDRD (S/P/Bld) [Vol rate/Area]15 mL/Min [facility] CtrGlucose Glucometer (BldC) [Mass/Vol]on 08-25-2020 Glucose [Mass/Vol]122 mg/dLClermont County Hospital CtrComment on above:Random Glucose Reference Range is dependent on time and content of last meal. Glucose of more than 200 mg/dL in a nonstressed, ambulatory subject supports the diagnosis of Diabetes Mellitus.Hematocrit Auto (Bld) [Volume fraction]on 12-63-9715Yacqetayam (Bld) [Volume fraction]31.7 %38.8-50.0[facility] CtrLaboratory - Hematology and Cell countson 65-74-5570Ukayvxluc RBC/100 WBC (Bld) [Ratio]0.2 %0-0.5FUniversity Hospitals Samaritan Medical Center CtrLymphocytes Auto (Bld) [#/Vol]on 56-85-7871Qbeckdptnae (Bld) [#/Vol]1.1 10*3/uL1.00-4.8[facility] CtrLymphocytes/100 WBC Auto (Bld)on 57-48-0680Waoebwmhpny/100 WBC (Bld)8.9 %[facility] CtrMCH Auto (RBC) [Entitic mass]on 40-91-0422NHZ (RBC) [Entitic mass]26.2 pg27.5-35.2FKettering Health Behavioral Medical Center MCHC Auto (RBC) [Mass/Vol]on 77-88-7532KMED (RBC) [Mass/Vol]31.9 g/dL32.5-35.6 [facility] NorthMCV Auto (RBC) [Entitic vol]on 27-47-0437SYR (RBC) [Entitic vol]82.3 fL83.5-101[facility] CtrMonocytes Auto (Bld) [#/Vol]on 53-59-9329Tjkrlvbcc (Bld) [#/Vol]1.2 10*3/uL0.0-0.8[facility] CtrMonocytes/100 WBC Auto (Bld)on 55-45-2995Bmabjxcwi/100 WBC (Bld)9.6 % [facility] CtrNeutrophils Auto (Bld) [#/Vol]on 08-25-2020 Neutrophils (Bld) [#/Vol]10.2 10*3/uL1.8-7.7FUniversity [facility]als [facility] Ctr Neutrophils/100 WBC Auto (Bld)on 25-61-4874Bilinyasikn/100 WBC (Bld)81.3 % [facility] CtrNo Panel Informationon 20-76-8963Pehhxjj Glucose CommentGlu2: cleaned meterClermont County Hospital CtrEstimated GFR ()18 mL/MinClermont County Hospital CtrComment on above:GFR estimated reference range: According to KDOQI guidelines, <60 ml/min/1.73m2 is sufficient todiagnose a patient with chronic kidney disease.Pharmacy Creatinine Clearance (Chem31.84[facility] CtrPlatelet EstimateNormalNormalClermont [facility] Hospital CtrPlatelet Morphology CommentNormalNormalClermont [facility] Hospital CtrPhosphate [Mass/volume] in Serum or Plasmaon 30-62-8962Xmguthprr [Mass/Vol]5.3 mg/dL2.5-4.6FUniversity Hospitals [facility]ar[facility] CtrPlatelet mean volume Auto (Bld) [Entitic vol]on 48-62-9103Hxnxbvru mean volume (Bld) [Entitic vol]7.1 fL6.6-10.1FUniversity Hospitals Samaritan [facility] CtrPlatelets Auto (Bld) [#/Vol]on 85-75-0401Tvwctqwfz (Bld) [#/Vol]388 10*3/lX326-877AmhaadqxuClermont County Hospital CtrRBC Auto (Bld) [#/Vol]on 73-59-3427EIW (Bld) [#/Vol]3.85 10*6/uL3.90-5.60 [facility] NorthRBC morphologyon 38-66-1252XNA morphology finding Nom (Bld)N/AFUniversity Hospitals [facility]ar[facility] CtrSerum or plasma calcium measurement (mass/volume)on 05-29-9898Kfchtlx [Mass/Vol]8.7 mg/dL8.2-10.2FUniversity Hospitals Samaritan [facility] CtrSerum or plasma chloride measurement (moles/volume)on 08-25-2020 Chloride [Moles/Vol]99 mmol/U27-669DsvxgpvsuClermont County Hospital CtrSerum or plasma glucose measurement (mass/volume)on 96-69-1348Npqwhmk [Mass/Vol]113 mg/tW11-675 [facility] CtrComment on above:ADA recommended reference rangeRandom Glucose Reference Range is dependent on time and content of last meal. Glucose of more than 200 mg/dL in a nonstressed, ambulatory subject supports the diagnosisof Diabetes Mellitus.Serum or plasma potassium measurement (moles/volume)on 83-09-1725Ozgsbhstw [Moles/Vol]4.6 mmol/L3.5-5.1FUniversity Hospitals Samar[facility] CtrSerum or plasma sodium measurement (moles/volume)on 61-59-0353Sgjxcd [Moles/Vol]135 mmol/C246-417CqahmfwmgClermont County Hospital CtrSerum or plasma total carbon dioxide measurement (moles/volume)on 99-99-7385CK2 [Moles/Vol]26.2 mmol/L22.0-30.0[facility] CtrSerum or plasma urea nitrogen measurement (mass/volume)on 72-65-7110Flpj nitrogen [Mass/Vol]75 mg/dL9-23[facility] CtrErythrocyte basophilic stippling detectionon 59-39-6669Yhupnufjfr stippling LM Ql (Bld)SlightClermont County Hospital CtrLaboratory - Hematology and Cell countson 00-38-1227Vspn form neutrophils/100 WBC (Bld)1 %0-5FUniversity Hospitals [facility]ar[facility] CtrLymphocytes/100 WBC Auto (Bld)on 45-15-6306Nlohaxycqwl/100 WBC (Bld)6 %18-42[facility] CtrMetamyelocytes/100 WBC Manual cnt (Bld)on 08-24-2020 Metamyelocytes/100 WBC (Bld)1 %0-0[facility] CtrMonocytes/100 WBC Manual cnt (Bld)on 07-29-6329Hsenqilmx/100 WBC (Bld)4 %2-11[facility] CtrMyelocytes/100 WBC Manual cnt (Bld)on 08-24-2020 Myelocytes/100 WBC (Bld)1 %0-0[facility] CtrNo Panel Information on 77-12-6124FtdllqjVrszxySqqaezpkm [facility] CtrSegmented neutrophils/100 WBC Manual cnt (Bld)on 44-45-9017Frfzdpdfs neutrophils/100 WBC (Bld)87 %50-70[facility] CtrNo Panel Informationon 08-23-2020 Bedside Glucose #[address]/[facility] CtrBedside Glucose #3 CommentCleaned meterClermont County Hospital CtrSerum nuclear antibody titeron 43-36-3428Lkjslwp Ab (S) [Titer]NegativeClermont County Hospital CtrComment on above:Negative <1:80 Borderline 1:80 Positive >1:80Performed at: - [facility] [id number] Director: Mata Brian PhD, Phone: [phone] or plasma rheumatoid factor measurement (units/volume)on 49-91-5578Wvsxfsioto factor Qn20.6 [IU]/mL [facility] CtrComment on above:Performed at: - [facility] [id number] Director: Mata Brian PhD, Phone: [phone] biopsyon 26-68-7637Hoxqlvkaygy [Mass/Vol]104 mg/iD611-772 [facility] CtrFerritin [Mass/volume] in Serum or Plasmaon 83-20-0999Ffwxheok [Mass/Vol]334.8 ng/mL23.9-336.2FUniversity Hospitals [facility]ar[facility] Ctr Iron [Mass/volume] in Serum or Plasmaon 09-53-3411Qdal [Mass/Vol]17 ug/iD51-253 [facility] CtrIron binding capacity [Mass/volume] in Serum or Plasmaon 49-78-5142Xgol binding capacity [Mass/Vol]146 ug/xE273-459PhkrbpmdyClermont County Hospital CtrIron saturation [Mass Fraction] in Serum or Plasmaon 33-07-4075Lthn saturation [Mass fraction]11.0 %20-50[facility] CtrCreatine kinase [Enzymatic activity/volume] in Serum or Plasmaon 26-15-0094EY [Catalytic activity/Vol]45 U/B61-451HzffglsgeClermont County Hospital CtrNo Panel Informationon 62-46-3479Atldx BodiesSlightClermont County Hospital CtrSerum or plasma cardiac troponin I measurement (mass/volume)on 29-52-4183Mavjwbgb I.cardiac [Mass/Vol]ng/mL0-0.02[facility] CtrComment on above: HÉCTOR GA Cut off value > or equal to 0.03 ng/mL in conjunction with clinical conditions of myocardial infarction.(www.escardio.org/guidelines)Serum or plasma creatine kinase MB (CKMB)/total creatine kinase (CK) ratio by calculaon 70-00-3360XA.MB Calc [Catalytic fraction]5.1 %0.00-2.50[facility] CtrSerum or plasma creatine kinase MB measurement (mass/volume)on 68-54-9493CG.MB [Mass/Vol]2.3 ng/mL0.6-6.3FUniversity Hospitals [facility]ar[facility] Ctr Erythrocyte sedimentation rate by Photometric methodon 10-51-7427GQM Photometric method (Bld) [Velocity]108 mm/hr0-19[facility] CtrSerum or plasma C reactive protein measurement (mass/volume)on 73-57-9347NXV [Mass/Vol] 19.4 mg/dL0.0-1.0[facility] CtrABO and Rh group post transfusion reaction Nom (Bld)on 33-23-7112Htekxkrvenc observation Gram stain Nom (Unsp spec)[facility] CtrGlucose mean value [Mass/volume] in Blood Estimated from glycated hemoglobinon 87-43-7325Zkkrgla glucose Estimated from glycated hemoglobin (Bld) [Mass/Vol]298 mg/dLClermont County Hospital Ctr Hemoglobin A1c percentageon 10-70-8173WeJ9u (Bld) [Mass fraction]12.0 %4.3-5.6 [facility] CtrComment on above:Increased risk for diabetes: 5.7 - 6.4diabetes: >6.4glycemic control for adults with diabetes: <7.0Laboratory - Chemistry and Chemistry - challengeon 68-30-3909Esgjyjnkb [Mass/Vol]2.0 mg/dL 1.6-2.6FUniversity Hospitals [facility]ar[facility] CtrNo Panel Informationon 760321-Suewvfs Vitamin D Total24.6 ng/eD92-922ZybszpnblClermont County Hospital CtrComment on above: VITAMIN D STATUS 25(OH)VITAMIN D RANGE (ng/mL) Deficient <20 Insufficient 20 to <77Wolgtjhcgk99 to 100Reference: Aki MF,Oriana NGUYEN, Elli JONAS, et al. Evaluation,treatment, and prevention of vitamin D deficiency; an Endocrine Society clinical practice guideline. JCEM. 2010; 96(7):1911-30.Activated partial thromboplastin time (aPTT) in platelet poor plasma by coagulation aon 28-03-2338hKYY Coag (PPP) [Time]36.9 s25.1-36.5FUniversity Hospitals [facility] Ctr Albumin [Mass/volume] in Serum or Plasmaon 91-03-8776Jqadwhl [Mass/Vol]2.7 g/dL 3.2-5.5FUniversity Hospitals Samar[facility] CtrBacterial blood cultureon 08-18-2020 Bacteria identified Cx Nom (Bld)NO GROWTH 5 DAYSClermont County Hospital Ctr Basophils Auto (Bld) [#/Vol]on 41-31-0746Aywxihvlg (Bld) [#/Vol]0.0 10*3/uL 0.0-0.2FUniversity Hospitals Samar[facility] CtrBasophils/100 WBC Auto (Bld)on 08-18-2020 Basophils/100 WBC (Bld)0.3 %[facility] CtrBeta-hydroxybutyric acid measurementon 63-64-4141Bfjt hydroxybutyrate [Mass/Vol]0.44 mmol/L0.02-0.27 [facility] CtrBlood hemoglobin measurement (mass/volume)on 29-08-3925Pljdvjsdxn (Bld) [Mass/Vol]11.8 g/dL13.0-17.0[facility] NorthBlood leukocytes automated count (number/volume)on 99-67-8184BOQ (Bld) [#/Vol]15.3 10*3/uL4.5-11.0[facility] CtrCOVID-19 Detected/Not Detectedon 76-80-6359XLQH-CoV-2 (COVID-19) RNA SUDHA+non-probe Ql (Nph)Not detectedNot DetecteFUniversity Hospitals Samaritan [facility] CtrComment on above:This is a duplicate RP2.1 COVID (PCR) result to be used for statistical tracking purpose only.COVID-19 SOFIAon 18-19-8062YMYQ-CoV+SARS-CoV-2 (COVID-19) Ag IA.rapid Ql (Resp)NegativeNegativeClermont County Hospital CtrComment on above:This is a duplicate Ayah SARS Antigen (AGUSTINA) result to be used for statistical tracking purpose only.Creatinine and Glomerular filtration rate.predicted panel (S/P/Bld)on 02-63-1259Okzcrsqinu [Mass/Vol]3.04 mg/dL 0.64-1.27[facility] CtrEosinophils Auto (Bld) [#/Vol]on 41-11-3267Vwqjsdkdknh (Bld) [#/Vol]0.5 10*3/uL0.0-0.45[facility] CtrEosinophils/100 WBC Auto (Bld)on 53-64-7717Haterskkbuu/100 WBC (Bld)3.4 % [facility] CtrErythrocyte distribution width Auto (RBC) [Ratio] on 21-99-3917Cutlujwbbyi distribution width (RBC) [Ratio]16.3 %12.0-14.8 [facility] CtrEstimated glomerular filtration rate (GFR) non- Americanon 30-68-0528AEI/1.73 sq M.predicted among non-blacks MDRD (S/P/Bld) [Vol rate/Area]21 mL/MinClermont County Hospital CtrGlobulin Calc (S) [Mass/Vol]on 76-14-0042Ugvduede (S) [Mass/Vol]4.4 g/dLClermont County Hospital CtrGlucose Glucometer (BldC) [Mass/Vol]on 88-62-6218Ntkshec [Mass/Vol] 388 mg/dLClermont County Hospital CtrComment on above:Random Glucose Reference Range is dependent on time and content of last meal. Glucose of more than 200 mg/dL in a nonstressed, ambulatory subject supports the diagnosis of Diabetes Mellitus.Hematocrit Auto (Bld) [Volume fraction]on 36-95-0863Wcotawtaop (Bld) [Volume fraction]36.1 %38.8-50.0[facility] CtrLaboratory - Chemistry and Chemistry - challengeon 91-79-8974GS2 [Moles/Vol]25.7 mmol/L 24.0-29.0[facility] CtrHCO3 (Bld) [Moles/Vol]24.3 mmol/L 23.0-29.0[facility] CtrMagnesium [Mass/Vol]2.2 mg/dL1.6-2.6 [facility] CtrNatriuretic peptide B (Bld) [Mass/Vol]48.0 pg/mL 5-100[facility] CtrLaboratory - Coagulationon 02-16-0887ES Coag (PPP) [Time]11.7 s9.0-12.9[facility] CtrLaboratory - Hematology and Cell countson 96-77-7677Epqsggllz RBC/100 WBC (Bld) [Ratio]0.1 %0-0.5 [facility] CtrLymphocytes Auto (Bld) [#/Vol]on 08-18-2020 Lymphocytes (Bld) [#/Vol]0.9 10*3/uL1.00-4.8[facility] Lymphocytes/100 WBC Auto (Bld)on 06-28-0834Oikmryjobbz/100 WBC (Bld)6.1 % [facility] (RBC) [Entitic mass]on 01-27-5532JTH (RBC) [Entitic mass]27.2 pg27.5-35.2FKettering Health Behavioral Medical CenterMCHC Auto (RBC) [Mass/Vol]on 75-79-9611UWWU (RBC) [Mass/Vol]32.6 g/dL32.5-35.6FMercy Health Defiance HospitalV Auto (RBC) [Entitic vol]on 16-79-3420RAB (RBC) [Entitic vol]83.5 fL83.5-101[facility] CtrMonocytes Auto (Bld) [#/Vol]on 35-70-8614Xmwedvtwa (Bld) [#/Vol]1.5 10*3/uL0.0-0.8[facility] CtrMonocytes/100 WBC Auto (Bld)on 52-81-3717Bexkqlfyf/100 WBC (Bld)10.1 % [facility] CtrNeutrophils Auto (Bld) [#/Vol]on 08-18-2020 Neutrophils (Bld) [#/Vol]12.3 10*3/uL1.8-7.7FUniversity Hospitals [facility] Ctr Neutrophils/100 WBC Auto (Bld)on 08-81-1497Arnbclvbkcm/100 WBC (Bld)80.1 % [facility] CtrNo Panel Informationon 88-85-8733Xosieednqxe Panel (PCR)[facility] CtrBlood Gas Critical ValueSee commentClermont County Hospital CtrComment on above:Critical Value called on: 08/18/2020 at 17:44Blood Gas Sample SiteVenousClermont County Hospital HwzCtV033 %[facility] CtrVenous Blood Base Excess-1.5 mmol/L-3.0-3.0[facility] CtrVenous Blood Oxygen Content4.1 mmol/L6.6-9.7FUniversity Hospitals Samaritan [facility] CtrVenous Blood Oxygen Rtvgypataj90.3 %73.0-76.0[facility] CtrVenous Blood Partial Pressure CO245.2 mm[Hg]38.0-50.0 [facility] CtrVenous Blood Partial Pressure O224.4 mm[Hg] 35.0-45.0[facility] CtrVenous Blood pH7.357.32-7.43[facility] CtrEstimated GFR ()26 mL/MinClermont County Hospital CtrComment on above:GFR estimated reference range: According to KDOQI guidelines, <60 ml/min/1.73m2 is sufficient todiagnose a patient with chronic kidney disease.Pharmacy Creatinine Clearance (Chem38.57[facility] CtrPlatelet mean volume Auto (Bld) [Entitic vol]on 75-10-4957Uwwlmbks mean volume (Bld) [Entitic vol]7.3 fL6.6-10.1FUniversity Hospitals Samaritan [facility] Center Ctr Platelet poor plasma international normalized ratio (INR) by coagulation assay (relaton 55-10-3943IRR Coag (PPP) [Relative time]1.0 {INR}[facility] CtrComment on above:INR Therapeutic Range A) Pre- and Peroperative OAT started two weeks before surgery. NOT HIP SURGERY: 1.5 - 2.5 HIP SURGERY: 2 - 3B) Primary and secondary prevention of venous THROMBOSIS: 2 - 3C) Active venous thrombosis, pulmonary embolismand prevention of recurrent venous thrombosis: 2 - 3D) Prevention of arterial thromboembolismincluding patients with mechanical heart valves: 3 - 4.5Platelets Auto (Bld) [#/Vol]on 54-76-0385Jhueqtgul (Bld) [#/Vol]249 10*3/lP643-105KjtqfgiroClermont County Hospital CtrProtein [Mass/volume] in Serum or Plasmaon 07-25-9193Fnwcprd [Mass/Vol]7.1 g/dL6.1-7.9[facility] CtrRBC Auto (Bld) [#/Vol]on 83-96-3690GOH (Bld) [#/Vol]4.32 10*6/uL 3.90-5.60[facility] CtrSerum or plasma alanine aminotransferase measurement without P-5'-P (enzymatic activion 91-55-0961AYA No additional P-5'-P [Catalytic activity/Vol]13 U/U20-75ZlaivxpfrClermont County Hospital CtrSerum or plasma albumin/globulin mass ratioon 69-85-4504Cvmocme/Globulin [Mass ratio]0.6 {ratio}[facility] CtrSerum or plasma alkaline phosphatase measurement (enzymatic activity/volume)on 05-50-0792RUK [Catalytic activity/Vol] 88 U/O07-99JslogozjlClermont County Hospital CtrSerum or plasma aspartate aminotransferase measurement (enzymatic activity/volume)on 96-59-7242HIK [Catalytic activity/Vol]16 U/K64-82RhvvzoksxClermont County Hospital CtrSerum or plasma calcium measurement (mass/volume)on 08-92-4943Trvokzl [Mass/Vol]8.9 mg/dL 8.2-10.2FUniversity Hospitals Samaritan [facility] Center CtrSerum or plasma cardiac troponin I measurement (mass/volume)on 79-44-8252Cqnefvwa I.cardiac [Mass/Vol]ng/mL0-0.02 [facility] CtrComment on above:HÉCTOR GA Cut off value > or equal to 0.03 ng/mL in conjunction with clinical conditions of myocardial infarction.(www.escardio.org/guidelines)Serum or plasma chloride measurement (moles/volume)on 50-62-7119Qkrbblop [Moles/Vol]95 mmol/W36-093YumttcoqcClermont County Hospital CtrSerum or plasma glucose measurement (mass/volume)on 08-18-2020 Glucose [Mass/Vol]512 mg/nZ41-229VzkjrdqmnClermont County Hospital CtrComment on above: Results calledat 1659 on 08/18/20 ADA recommended reference rangeRandom Glucose Reference Range is dependent on time and content of last meal. Glucose of more than 200 mg/dL in a nonstressed, ambulatory subject supports the diagnosis of Diabetes Mellitus.Serum or plasma potassium measurement (moles/volume)on 40-75-8144Kvamejwfq [Moles/Vol]4.2 mmol/L3.5-5.1FKettering Health Behavioral Medical Center Serum or plasma sodium measurement (moles/volume)on 25-46-9421Ajcmbg [Moles/Vol] 128 mmol/K230-684SblkxqhxoClermont County Hospital CtrSerum or plasma total bilirubin measurement (mass/volume)on 35-75-3981Qgohstbmx [Mass/Vol]0.7 mg/dL0.3-1.2 [facility] CtrSerum or plasma total carbon dioxide measurement (moles/volume)on 39-10-4016TC7 [Moles/Vol]22.6 mmol/L22.0-30.0[facility] CtrSerum or plasma urea nitrogen measurement (mass/volume)on 08-18-2020 Urea nitrogen [Mass/Vol]27 mg/dL9-[facility] CtrCBC COMPLETE BLOOD COUNTon 76-46-2551Zsviodolosu distribution width (RBC) [Ratio]15.0 %Normal 11.5-15.0The [facility] HospitalComment on above:Order Comment: No: Do not add to previous drawPerformed By: #### [id number] #### [facility] [address] [place] [address], [facility] HOSPITALHematocrit (Bld) [Volume fraction]32.4 %Low39.0-50.0The [facility] HospitalComment on above:Order Comment: No: Do not add to previous drawPerformed By: #### [id number] #### [facility] [address] [place] [address], [facility] HOSPITALHemoglobin (Bld) [Mass/Vol]9.5 g/dLLow13.0-17.0The [facility] HospitalComment on above:Order Comment: No: Do not add to previous drawPerformed By: #### [id number] #### [facility] [address] [place] [address], [facility]SAH (RBC) [Entitic mass]26.7 pgLow27.0-33.0The [facility] HospitalComment on above:Order Comment: No: Do not add to previous drawPerformed By: #### [id number] #### [facility] [address] [place] [address], [facility] – TULSAHC (RBC) [Mass/Vol]29.3 g/dLLow32.0-35.0The [facility] HospitalComment on above:Order Comment: No: Do not add to previous drawPerformed By: #### [id number] #### [facility] [address] [place] [id number], [facility] HOSPITALMCV (RBC) [Entitic vol]91.0 zPKyjtlh12.0-98.0The [facility] HospitalComment on above:Order Comment: No: Do not add to previous drawPerformed By: #### [id number] #### [facility] [address] [place] [address], [facility] HOSPITALNucleated RBC/100 WBC (Bld) [Ratio]0 %Normal0-0The [facility] HospitalComment on above:Order Comment: No: Do not add to previous drawPerformed By: #### [id number] #### [facility] [address] [place] [id number], USAPLAT VNV448 10*3/vNMofmwt698-606Ajc [facility] HospitalComment on above:Order Comment: No: Do not add to previous draw Performed By: #### [id number] #### [facility] [address] [place] [id number], [facility] HOSPITALRBC (Bld) [#/Vol]3.56 10*6/uLLow4.20-5.70The [facility] HospitalComment on above:Order Comment: No: Do not add to previous drawPerformed By: #### [id number] #### [facility] [address] [place] [address], [facility] HOSPITALWBC (Bld) [#/Vol]8.61 10*3/uLNormal4.00-10.60The [facility] HospitalComment on above:Order Comment: No: Do not add to previous drawPerformed By: #### [id number] #### [facility] [address] [place] [address], USACOMP METABOLIC PANELon 17-02-7953Dyyjsgw [Mass/Vol]2.7 g/dL Low3.5-5.7The [facility] HospitalComment on above:Order Comment: No: Do not add to previous drawPerformed By: #### [id number] #### [facility] [address] [place] [address], USAALKALINE WTPMDS73 IU/TOcotcp29-537Tbx [facility] HospitalComment on above:Order Comment: No: Do not add to previous draw Performed By: #### [id number] #### [facility] [address] [place] [address], USAALT [Catalytic activity/Vol]4 U/LLow7-52The [facility] HospitalComment on above:Order Comment: No: Do not add to previous drawPerformed By: #### [id number] #### [facility] [address] [place] [address], USAAST [Catalytic activity/Vol]15 U/ZGoeuqa35-02Esf [facility] HospitalComment on above:Order Comment: No: Do not add to previous drawPerformed By: #### [id number] #### [facility] [address] [place] [address], USABilirubin [Mass/Vol]0.2 mg/dLLow0.3-1.0The [facility] HospitalComment on above:Order Comment: No: Do not add to previous drawPerformed By: #### [id number] #### [facility] [address] [place] [address], USACalcium [Mass/Vol]8.9 mg/dLNormal8.6-10.3The [facility] HospitalComment on above:Order Comment: No: Do not add to previous drawPerformed By: #### [id number] #### [facility] [address] [place] [address], USAChloride [Moles/Vol]109 mmol/XUntw99-849Lon [facility] HospitalComment on above:Order Comment: No: Do not add to previous drawPerformed By: #### [id number] #### [facility] [address] [place] [address], USACO2 [Moles/Vol]24 mmol/ZEbibjp18-35Hmw [facility] HospitalComment on above:Order Comment: No: Do not add to previous draw Performed By: #### [id number] #### [facility] [address] [place] [address], USACreatinine [Mass/Vol]3.39 mg/dLHigh0.70-1.30The [facility] HospitalComment on above:Order Comment: No: Do not add to previous drawPerformed By: #### [id number] #### [facility] [address] [place] [address], USAeGFR- Lftiputm53 ml/min/1.73sq mAbnormal>60The [facility] HospitalComment on above:Order Comment: No: Do not add to previous drawPerformed By: #### [id number] #### [facility] [address] [place] [address], USAeGFR- non- Jbliacwm52 ml/min/1.73sq mAbnormal>60The [facility] HospitalComment on above:Order Comment: No: Do not add to previous drawPerformed By: #### [id number] #### [facility] [address] [place] [address], USAGlucose [Mass/Vol]90 mg/zERtktqd50-279Ued [facility] HospitalComment on above:Order Comment: No: Do not add to previous drawPerformed By: #### [id number] #### [facility] [address] [place] [address], USAPotassium [Moles/Vol]4.4 mmol/LNormal3.5-5.1The [facility] HospitalComment on above:Order Comment: No: Do not add to previous drawPerformed By: #### [id number] #### [facility] [address] [place] [address], USAProtein [Mass/Vol]5.9 g/dLLow6.0-8.3The [facility] HospitalComment on above:Order Comment: No: Do not add to previous drawPerformed By: #### [id number] #### [facility] [address] [place] [address], USASodium [Moles/Vol]140 mmol/ZCnfamv322-110Jlm [facility] HospitalComment on above:Order Comment: No: Do not add to previous drawPerformed By: #### [id number] #### [facility] [address] [place] [place] [address], USAUrea nitrogen [Mass/Vol]35 mg/dLHigh7-25The [facility] HospitalComment on above:Order Comment: No: Do not add to previous drawPerformed By: #### [id number] #### [facility] [address] [facility] [place] [address], USAPOC GLUCOSE LABon 83-91-2894Jqhkfde [Mass/Vol]192 mg/dLHigh 70-100The [facility] HospitalComment on above:Performed By: #### 36044 #### [facility] [address] [place] [address], USAGlucose [Mass/Vol]95 mg/mTOqappa09-223Dsz [facility] HospitalComment on above:Performed By: #### 93694, 09880 #### [facility] [address] [place] [address], USAGlucose [Mass/Vol]123 mg/dMQsae44-621Dvg [facility] HospitalComment on above:Performed By: #### [id number] ####[facility] [place] [address], USAARTERIAL BLOOD GAS WITH ICAon 13-55-7535QOOR EXCESS-2 mmol/VGqlzry-4-4Fpv [facility] HospitalComment on above:Performed By: #### 13211 #### [facility] [address] [place] [address], USADELIVERY SYSTEMSFOCUSNormalThe [facility] HospitalComment on above:Performed By: #### 67827 #### [facility] [address] [place] [address], USAHCO3 (Bld) [Moles/Vol]24 mmol/SRoobjn49-59Hhh [facility] HospitalComment on above:Performed By: #### 42037 #### [facility] [address] [place] [address], USAIONIZED CALCIUM1.25 mmol/LNormal1.13-1.32The [facility] HospitalComment on above:Performed By: #### [id number] #### [facility] [address] [place] [address], USALPM4.0 LPMNormalThe [facility] Comment on above:Performed By: #### 74155 #### [facility] [address] [place] [address], USAMODALITYBIPAPNormalThe [facility] Comment on above:Performed By: #### 21091 #### [facility] [address] [place] [address], USAOxygen (Bld) [Partial pressure]91 mm[Hg]Onnvjn62-991Zak [facility] HospitalComment on above:Performed By: #### [id number] #### [facility] [address] [place] [address], USAOxygen saturation in Blood95.9 %Evynaz04.0-97.0The [facility] Reserve HospitalComment on above:Performed By: #### [id number] #### [facility] [address] [place] [address], AOODYK981 mdXgNufq98-10Ikx [facility] Comment on above:Performed By: #### [id number] #### [facility] [address] [place] [address], USAPEEP8.0 LKI04RtwhdhNmvEast Liverpool City Hospital Comment on above:Performed By: #### 15281 #### [facility] [address] [place] [address], USApH (Bld)7.32 [pH]Low7.35-7.45The [facility] HospitalComment on above:Performed By: #### 81185 #### [facility] [address] [place] [address], USAPRESSURE NGOFMRV38FaaoknOivEast Liverpool City HospitalComment on above:Performed By: #### 73444 #### [facility] [address] [place] [address], USABASE EXCESS-3 mmol/LLow-2-3The [facility] HospitalComment on above:Performed By: #### 07806 #### [facility] [address] [place] [address], USADELIVERY SYSTEMSNASAL CANNULANoEast Liverpool City HospitalComment on above:Performed By: #### [id number] #### [facility] [address] [place] [address], USAHCO3 (Bld) [Moles/Vol]25 mmol/ITirosj84-80Uze [facility] HospitalComment on above:Performed By: #### 51141 #### [facility] [address] [place] [address], USAIONIZED CALCIUM1.26 mmol/LNormal1.13-1.32The [facility] HospitalComment on above:Performed By: #### 43571 #### [facility] [address] [place] [address], USALPM2.0 LPMNormalThe [facility] Comment on above:Performed By: #### 59879 #### [facility] [address] [place] [address], USAOxygen (Bld) [Partial pressure]92 mm[Hg]Nvagfk39-766Plk [facility] HospitalComment on above:Performed By: #### 15842 #### [facility] [address] [place] [address], USAOxygen saturation in Blood95.7 %Hxokly22.0-97.0The [facility] HospitalComment on above:Performed By: #### 41179 #### [facility] [address] [place] [address], SXNHQF554 znOvMpoc88-54Zwl [facility] Comment on above:Performed By: #### 35907 #### [facility] [address] [place] [address], USApH (Bld)7.27 [pH]Low7.35-7.45The [facility] HospitalComment on above:Performed By: #### 16995 #### [facility] [address] [place] [address], USABASIC METABOLIC PANELon 66-08-3298Gclnuzm [Mass/Vol]9.0 mg/dLNormal8.6-10.3The [facility] HospitalComment on above:Order Comment: No: Do not add to previous drawPt not in room rn will return when back.Performed By: #### 18686 #### [facility] [address] [place] [address], USAChloride [Moles/Vol]106 mmol/HQjkeag08-964Lnd [facility] HospitalComment on above:Order Comment: No: Do not add to previous drawPt not in room rn will return when back.Performed By: #### 80849 #### [facility] [address] [place] [address], USACO2 [Moles/Vol]25 mmol/ZSpcbso61-06Ijn [facility] HospitalComment on above:Order Comment: No: Do not add to previous drawPt not in room rn will return when back.Performed By: #### 40626 #### [facility] [address] [place] [address], USACreatinine [Mass/Vol]3.75 mg/dLHigh0.70-1.30The [facility] HospitalComment on above:Order Comment: No: Do not add to previous drawPt not in room rn will return when back.Performed By: #### 98328 #### [facility] [address] [place] [address], USAeGFR- Bkwvvdvp90 ml/min/1.73sq mAbnormal>60The [facility] HospitalComment on above:Order Comment: No: Do not add to previous drawPt not in room rn will return when back.Performed By: #### 66898 #### [facility] [address] [place] [address], USAeGFR- non- Rhejadjv79 ml/min/1.73sq mAbnormal>60The [facility] HospitalComment on above:Order Comment: No: Do not add to previous drawPt not in room rn will return when back.Performed By: #### 84385 #### [facility] [address] [place] [address], USAGlucose [Mass/Vol]132 mg/hYHvvl56-520Yzu [facility] HospitalComment on above:Order Comment: No: Do not add to previous drawPt not in room rn will return when back.Performed By: #### 67204 #### [facility] [address] [place] [address], USAPotassium [Moles/Vol]5.0 mmol/LNormal3.5-5.1The [facility] HospitalComment on above:Order Comment: No: Do not add to previous drawPt not in room rn will return when back.Performed By: #### 58915 #### [facility] [address] [place] [address], [facility] HOSPITALSodium [Moles/Vol]138 mmol/HQcjxbs761-966Xzz [facility] HospitalComment on above:Order Comment: No: Do not add to previous drawPt not in room rn will return when back.Performed By: #### 58677 #### [facility] [address] [facility] [place] [address], USAUrea nitrogen [Mass/Vol]37 mg/dLHigh7-25The [facility] HospitalComment on above:Order Comment: No: Do not add to previous drawPt not in room rn will return when back.Performed By: #### 35293 #### [facility] [address] [facility] [place] [address], [facility] HOSPITALCB COMPLETE BLOOD COUNTon 12-12-3797Mbbqvcexbwk distribution width (RBC) [Ratio]15.0 %Oiquye43.5-15.0The [facility] HospitalComment on above:Order Comment: No: Do not add to previous drawPt not in room rn will return when back.Performed By: #### 93585 #### [facility] [address] [facility] [place] [address], USAHematocrit (Bld) [Volume fraction]33.9 %Low39.0-50.0The [facility] HospitalComment on above:Order Comment: No: Do not add to previous drawPt not in room rn will return when back.Performed By: #### 18002 #### [facility] [address] [facility] [address] [place] [address], USAHemoglobin (Bld) [Mass/Vol]9.9 g/dLLow13.0-17.0The [facility] HospitalComment on above:Order Comment: No: Do not add to previous drawPt not in room rn will return when back.Performed By: #### 10570 #### [facility] [address] [facility] [place] [address], [facility] (RBC) [Entitic mass]26.9 pgLow27.0-33.0The [facility] HospitalComment on above:Order Comment: No: Do not add to previous drawPt not in room rn will return when back.Performed By: #### 79498 #### [facility] [address] [facility] [place] [id number], [facility] (RBC) [Mass/Vol]29.2 g/dLLow32.0-35.0The [facility] HospitalComment on above:Order Comment: No: Do not add to previous drawPt not in room rn will return when back.Performed By: #### 32442 #### [facility] [address] [place] [address], [facility] (RBC) [Entitic vol]92.1 kPUledqf39.0-98.0The [facility] HospitalComment on above:Order Comment: No: Do not add to previous drawPt not in room rn will return when back.Performed By: #### 34038 #### [facility] [address] [place] [address], [facility] HOSPITALNucleated RBC/100 WBC (Bld) [Ratio]0 %Normal0-0The [facility] HospitalComment on above:Order Comment: No: Do not add to previous drawPt not in room rn will return when back.Performed By: #### 24472 #### [facility] [address] [facility] [place] [place] [address], [facility]DI[facility] HOSPITALPLAT DBM030 10*3/sDNhdxut030-121Mrj [facility] HospitalComment on above:Order Comment: No: Do not add to previous drawPt not in room rn will return when back.Performed By: #### 36474 #### [facility] [address] [place] [address], USARBC (Bld) [#/Vol]3.68 10*6/uLLow4.20-5.70The [facility] HospitalComment on above:Order Comment: No: Do not add to previous drawPt not in room rn will return when back.Performed By: #### 95629 #### [address] [address], USAWBC (Bld) [#/Vol]9.51 10*3/uLNormal4.00-10.60The [facility] HospitalComment on above:Order Comment: No: Do not add to previous drawPt not in room rn will return when back.Performed By: #### 54280 #### [address] [address], USACT CHEST WO CONTRASTon [id number] CHEST WO CONTRAST [facility] Department of Radiology [address] [place] [id number] Patient Name: RASHARD LYMAN : 1960 Sex: M Age: Race: White Pt. Location: [address] [place] [address] Patient Status: I Ordered Date: 07/21/2020 6:00:00 [...] pneumonia. Electronically signed: Manuel Saldaña. Transcribed by: [email or web address], User Resident: Electronically Signed by: MANUEL SALDAÑA @ 07/21/2020 08:38 AMNormalThe [facility] HospitalComment on above:Order Comment: Left Peural EffusionPOC GLUCOSE LABon 14-74-8524Tcjznnh [Mass/Vol]134 mg/sRYbzh78-401Ktm [facility] HospitalComment on above:Performed By: #### 97350 #### [place] [address], [facility] HOSPITALGlucose [Mass/Vol]88 mg/lGDaddhm46-663Nxr [facility] HospitalComment on above:Performed By: #### 31757 #### [facility] [address] [place] [address], USAGlucose [Mass/Vol]110 mg/zSTilx88-664Asc [facility] HospitalComment on above:Performed By: #### 15978 #### [facility] [address] [place] [address], USAGlucose [Mass/Vol]118 mg/aFBkxt41-513Hxt [facility] HospitalComment on above:Performed By: #### 44676, 87620 #### [facility] [address] [place] [address], USAGlucose [Mass/Vol]137 mg/jYWytm84-342Iqw [facility] HospitalComment on above:Performed By: #### 39721, 91272 #### [facility] [address] [place] [address], USABASIC METABOLIC PANELon 31-39-9713Bxqwgzx [Mass/Vol]8.4 mg/dLLow8.6-10.3The [facility] HospitalComment on above:Order Comment: No: Do not add to previous drawPerformed By: #### 13502 #### [facility] [address] [place] [address], USAChloride [Moles/Vol]107 mmol/RIavpsu52-028Xfi [facility] HospitalComment on above:Order Comment: No: Do not add to previous drawPerformed By: #### 35391 #### [facility] [address] [place] [address], USACO2 [Moles/Vol]23 mmol/NKnhsae37-83Fmk [facility] HospitalComment on above:Order Comment: No: Do not add to previous draw Performed By: #### 40481 #### [facility] [address] [place] [address], USACreatinine [Mass/Vol]3.95 mg/dLHigh0.70-1.30The [facility] HospitalComment on above:Order Comment: No: Do not add to previous drawPerformed By: #### 78182 #### [facility] [address] [place] [address], USAeGFR- Kmboadlh15 ml/min/1.73sq mAbnormal>60The [facility] HospitalComment on above:Order Comment: No: Do not add to previous drawPerformed By: #### 50271 #### [facility] [address] [place] [address], USAeGFR- non- Zjdcjwek83 ml/min/1.73sq mAbnormal>60The [facility] HospitalComment on above:Order Comment: No: Do not add to previous drawPerformed By: #### 65215 #### [facility] [address] [place] [address], USAGlucose [Mass/Vol]110 mg/pWKfko58-793Evc [facility] HospitalComment on above:Order Comment: No: Do not add to previous drawPerformed By: #### 39841 #### [facility] [address] [place] [address], USAPotassium [Moles/Vol]4.9 mmol/LNormal3.5-5.1The [facility] HospitalComment on above:Order Comment: No: Do not add to previous drawPerformed By: #### 52282 #### [facility] [address] [place] [address], USASodium [Moles/Vol]137 mmol/CSojjgd448-504Vow [facility] HospitalComment on above:Order Comment: No: Do not add to previous drawPerformed By: #### 84344 #### [facility] [address] [place] [address], USAUrea nitrogen [Mass/Vol]37 mg/dLHigh7-25The [facility] HospitalComment on above:Order Comment: No: Do not add to previous drawPerformed By: #### 90034 #### [facility] [address] [facility] [place] [address], [facility] HOSPITALCB W/DIFFon [id number] IMM GRANS0.1 10*3/uLNormal 0.0-0.2The [facility] HospitalComment on above:Order Comment: No: Do not add to previous drawPerformed By: #### 38096 #### [facility] [address] [facility] [place] [place] [address], USAABS NEUTROPHILS5.9 10*3/uLNormal1.6-7.6The [facility] HospitalComment on above:Order Comment: No: Do not add to previous drawPerformed By: #### 34811 #### [facility] [address] [facility] [place] [address], USABasophils (Bld) [#/Vol]0.1 10*3/uLNormal0.0-0.2The [facility] HospitalComment on above:Order Comment: No: Do not add to previous drawPerformed By: #### 81921 #### [facility] [address] [facility] [place] [address], USABasophils/100 WBC (Bld)1.0 %Normal0.0-1.0The [facility] HospitalComment on above:Order Comment: No: Do not add to previous drawPerformed By: #### 80330 #### [facility] [address] [facility] [place] [address], USAEosinophils (Bld) [#/Vol]0.4 10*3/uLNormal0.0-0.5The [facility] HospitalComment on above:Order Comment: No: Do not add to previous drawPerformed By: #### 01026 #### [facility] [address] [facility] [place] [address], USAEosinophils/100 WBC (Bld)5.1 %Normal0.0-6.0The [facility] HospitalComment on above:Order Comment: No: Do not add to previous drawPerformed By: #### 16773 #### [facility] [address] [facility] [place] [address], USAErythrocyte distribution width (RBC) [Ratio]15.4 %High 11.5-15.0The [facility] HospitalComment on above:Order Comment: No: Do not add to previous drawPerformed By: #### 86014 #### [facility] [address] [facility] [place] [address], USAHematocrit (Bld) [Volume fraction]35.7 %Low39.0-50.0The [facility] HospitalComment on above:Order Comment: No: Do not add to previous drawPerformed By: #### 94954 #### [facility] [address] [facility] [place] [address], USAHemoglobin (Bld) [Mass/Vol]10.3 g/dLLow13.0-17.0The [facility] HospitalComment on above:Order Comment: No: Do not add to previous drawPerformed By: #### 32332 #### [facility] [address] [facility] [place] [address], USAIMM PLATELET FRAC0.4 %Low0.8-6.3The [facility] HospitalComment on above:Order Comment: No: Do not add to previous draw Performed By: #### 52735 #### [facility] [address] [facility] [place] [address], USAIMMATURE GRANS1.1 %High0.0-1.0The [facility] HospitalComment on above:Order Comment: No: Do not add to previous draw Performed By: #### 22215 #### [facility] [address] [place] [address], USALymphocytes (Bld) [#/Vol]0.8 10*3/uLLow1.2-4.0The [facility] HospitalComment on above:Order Comment: No: Do not add to previous drawPerformed By: #### 27151 #### [facility] [address] [address], USALymphocytes/100 WBC (Bld)9.3 %Low20.0-45.0The [facility] HospitalComment on above:Order Comment: No: Do not add to previous drawPerformed By: #### 39893 #### [facility] [address] [address], [facility] (RBC) [Entitic mass]27.4 uyWwkndp20.0-33.0The [facility] HospitalComment on above:Order Comment: No: Do not add to previous drawPerformed By: #### 05882 #### [facility] [address] [place] [id number], [facility]DI[facility] HOSPITALMCHC (RBC) [Mass/Vol]28.9 g/dLLow32.0-35.0The [facility] HospitalComment on above:Order Comment: No: Do not add to previous drawPerformed By: #### 95148 #### [facility] [address] [place] [address], [facility] (RBC) [Entitic vol]94.9 qGGhlhfv11.0-98.0The [facility] HospitalComment on above:Order Comment: No: Do not add to previous drawPerformed By: #### 43956 #### [facility] [address] [address], USAMonocytes (Bld) [#/Vol]1.1 10*3/uLHigh0.1-1.0The [facility] HospitalComment on above:Order Comment: No: Do not add to previous drawPerformed By: #### 34423 #### [facility] [address] [place] [address], WVRNVLPK87.9 %High5.0-12.0The [facility] HospitalComment on above:Order Comment: No: Do not add to previous drawPerformed By: #### 62551 #### [facility] [address] [place] [address], USANeutrophils/100 WBC (Bld)70.6 %Tzeplw36.0-72.0The [facility] HospitalComment on above:Order Comment: No: Do not add to previous drawPerformed By: #### 74690 #### [facility] [address] [place] [address], USANucleated RBC/100 WBC (Bld) [Ratio]0 %Normal0-0The [facility] HospitalComment on above:Order Comment: No: Do not add to previous drawPerformed By: #### 44936 #### [facility] [address] [facility] [place] [address], USAPLAT ESTIMATENormalNormalThe [facility] HospitalComment on above:Order Comment: No: Do not add to previous drawResult Comment: EDTA smear shows platelet clumping, see platelet estimatePerformed By: #### 68585 #### [facility] [address] [facility] [place] [address], USARBC (Bld) [#/Vol]3.76 10*6/uLLow4.20-5.70The [facility] HospitalComment on above:Order Comment: No: Do not add to previous drawPerformed By: #### 71419 #### [facility] [address] [place] [address], USAWBC (Bld) [#/Vol]8.30 10*3/uLNormal4.00-10.60The [facility] HospitalComment on above:Order Comment: No: Do not add to previous drawPerformed By: #### 11059 #### [facility] [address] [facility] [place] [address], USAPOC GLUCOSE LABon 48-24-6110Zyyyxxj [Mass/Vol]110 mg/dLHigh 70-100The [facility] HospitalComment on above:Performed By: #### 48057 #### [facility] [address] [facility] [place] [address], USAGlucose [Mass/Vol]124 mg/pUOuww29-151Cuw [facility] HospitalComment on above:Performed By: #### 15717 #### [facility] [address] [facility] [place] [address], USAGlucose [Mass/Vol]111 mg/vCOwmy21-438Qxv [facility] HospitalComment on above:Performed By: #### 21682, 24824 #### [facility] [address] [facility] [place] [address], USAPORTABLE CHEST 1 VIEWon [id number] CHEST 1 VIEW [facility] Department of Radiology [address] [place] [id number] Patient Name: RASHARD LYMAN : 1960 Sex: M Age: Race: White Pt. Location: [address] [place] [address] Patient Status: I Ordered Date: 07/20/2020 6:00:00 [...] unchanged Electronically signed: Manuel Saldaña. Transcribed by: [id number], User Resident: Electronically Signed by: MANUEL SALDAÑA @ 07/20/2020 09:07 AMNormalThe [facility] HospitalComment on above:Order Comment: Evaluate for EffusionBASIC METABOLIC PANELon 15-07-2245Gcyvoyj [Mass/Vol]8.4 mg/dLLow8.6-10.3 The [facility] HospitalComment on above:Order Comment: No: Do not add to previous drawPerformed By: #### 11748 #### [facility] [address] [place] [address], USAChloride [Moles/Vol]104 mmol/SFmtdyz54-185Nti [facility] HospitalComment on above:Order Comment: No: Do not add to previous drawPerformed By: #### 72560 #### [facility] [address] [place] [address], USACO2 [Moles/Vol]24 mmol/NKscavy07-69Wsk [facility] HospitalComment on above:Order Comment: No: Do not add to previous draw Performed By: #### 95766 #### [facility] [address] [place] [address], USACreatinine [Mass/Vol]4.15 mg/dLHigh0.70-1.30The [facility] HospitalComment on above:Order Comment: No: Do not add to previous drawPerformed By: #### 94457 #### [facility] [address] [place] [address], USAeGFR- Qfnwiqkl20 ml/min/1.73sq mAbnormal>60The [facility] HospitalComment on above:Order Comment: No: Do not add to previous drawPerformed By: #### 31661 #### [facility] [address] [place] [address], USAeGFR- non- Tozzshgs77 ml/min/1.73sq mAbnormal>60The [facility] HospitalComment on above:Order Comment: No: Do not add to previous drawPerformed By: #### 66810 #### [facility] [address] [place] [address], USAGlucose [Mass/Vol]180 mg/vYNxka54-284Zgl [facility] HospitalComment on above:Order Comment: No: Do not add to previous drawPerformed By: #### 98742 #### [facility] [address] [place] [address], USAPotassium [Moles/Vol]4.4 mmol/LNormal3.5-5.1The [facility] HospitalComment on above:Order Comment: No: Do not add to previous drawPerformed By: #### 58557 #### [facility] [address] [place] [address], USASodium [Moles/Vol]135 mmol/CLus399-885Lwj [facility] HospitalComment on above:Order Comment: No: Do not add to previous drawPerformed By: #### 79825 #### [facility] [address] [place] [address], USAUrea nitrogen [Mass/Vol]37 mg/dLHigh7-25The [facility] HospitalComment on above:Order Comment: No: Do not add to previous drawPerformed By: #### [id number] #### [facility] [address] [place] [address], USACBC COMPLETE BLOOD COUNTon 37-20-5485Wjowlumiphu distribution width (RBC) [Ratio]14.8 %Wjxfht18.5-15.0The [facility] HospitalComment on above:Order Comment: No: Do not add to previous draw Performed By: #### [id number] #### [facility] [address] [place] [address], USAHematocrit (Bld) [Volume fraction]30.9 %Low39.0-50.0The [facility] HospitalComment on above:Order Comment: No: Do not add to previous drawPerformed By: #### 24210 #### [facility] [address] [facility] [place] [address], USAHemoglobin (Bld) [Mass/Vol]9.0 g/dLLow13.0-17.0The [facility] HospitalComment on above:Order Comment: No: Do not add to previous drawPerformed By: #### 10801 #### [facility] [address] [place] [address], [facility] HOSPITALMCH (RBC) [Entitic mass]26.6 pgLow27.0-33.0The [facility] HospitalComment on above:Order Comment: No: Do not add to previous drawPerformed By: #### 67189 #### [facility] [address] [place] [address], [facility] HOSPITALMCHC (RBC) [Mass/Vol]29.1 g/dLLow32.0-35.0The [facility] HospitalComment on above:Order Comment: No: Do not add to previous drawPerformed By: #### 63771 #### [facility] [address] [address], USAMCV (RBC) [Entitic vol]91.4 vTXmlehr04.0-98.0The [facility] HospitalComment on above:Order Comment: No: Do not add to previous drawPerformed By: #### 96875 #### [facility] [address] [address], USANucleated RBC/100 WBC (Bld) [Ratio]0 %Normal0-0The [facility] HospitalComment on above:Order Comment: No: Do not add to previous drawPerformed By: #### 04404 #### [facility] [address] [address], USAPLAT KXC586 10*3/fQDjhvmk845-289Osc [facility] HospitalComment on above:Order Comment: No: Do not add to previous draw Performed By: #### 99579 #### [facility] [address] [address], USARBC (Bld) [#/Vol]3.38 10*6/uLLow4.20-5.70The [facility] HospitalComment on above:Order Comment: No: Do not add to previous drawPerformed By: #### 29810 #### [facility] [address] [address], USAWBC (Bld) [#/Vol]6.73 10*3/uLNormal4.00-10.60The [facility] HospitalComment on above:Order Comment: No: Do not add to previous drawPerformed By: #### 63539 #### [facility] [address] [address], USAOperative Reporton [id number] ReportMR#: [id number] I [facility] Pt. Name: [facility] #: [id number] Discharge Date: Birthdate: 1960 OPERATIVE REPORT DATE OF SURGERY: 07/19/2020 SURGEON: Nima Wynne MD Operative Note Medical Thoracoscopy, lysis of adhesions, pleural biopsy Procedure Date: 07/19/2020 Procedure: Medical Thoracoscopy, pleural biopsies, lysis of adhesions, and chest tube placement Preoperative Diagnosis: Loculated pleural effusion Post-operative Diagnosis: same Surgeons: Nima Wynne MD Equipment Services Associate: Davis Pham MD Type of Anesthesia: MAC [...] Wynne MD Date Trans: 07/19/2020 02:43 P/ DN_JN:[id number] cc: Jose Juarez D.O. [address] [place] [address] [place] [id number] Clinic Hillcre[facility] GLUCOSE LABon [id number] [Mass/Vol]219 mg/zQCtgn45-234Xfh [facility] HospitalComment on above:Performed By: #### [id number], 27309 #### [facility] [address] [place] [address], USAGlucose [Mass/Vol]152 mg/tAGlfh73-595Ong [facility] HospitalComment on above:Performed By: #### 26551, 66765 #### [facility] [address] [place] [address], USAGlucose [Mass/Vol]183 mg/eEFjmn52-491Jyy [facility] HospitalComment on above:Performed By: #### 83881 #### [facility] [address] [place] [address], USAGlucose [Mass/Vol]206 mg/eAWebo19-646Ntg [facility] HospitalComment on above:Performed By: #### 78216 ####[facility] [place] [address], USAGlucose [Mass/Vol] 179 mg/yRWrth64-896Irn [facility] HospitalComment on above: Performed By: #### [id number] #### [address] [place] [address], USAPORTABLE CHEST 1 VIEWon [id number] CHEST 1 VIEW [facility] Department of Radiology [address] [place] [address] [place] [id number] Patient Name: RASHARD LYMAN : 1960 Sex: M Age: Race: White Pt. Location: [address] [place] [address] Patient Status: I Ordered Date: 07/19/2020 2:20:00 [...] infiltration Electronically signed: Pedro Baldwin. Transcribed by: [email or web address], User Resident: TAREK MOUSTAFA Electronically Signed by: PEDRO BALDWIN @ 07/19/2020 03:03 PM I personally read this/these film(s) with this [facility] InstituteComment on above:Order Comment: Check Chest Tube Position BASIC METABOLIC PANELon [id number] [Mass/Vol]8.4 mg/dLLow8.6-10.3The [facility] HospitalComment on above:Order Comment: No: Do not add to previous drawPerformed By: #### [id number] #### [facility] [address] [place] [address], USAChloride [Moles/Vol]105 mmol/VIexgcd35-688Cvw [facility] HospitalComment on above:Order Comment: No: Do not add to previous drawPerformed By: #### 18311 #### [facility] [address] [place] [address], USACO2 [Moles/Vol]25 mmol/VRnosqj60-10Gmy [facility] HospitalComment on above:Order Comment: No: Do not add to previous draw Performed By: #### 17725 #### [facility] [address] [place] [address], USACreatinine [Mass/Vol]4.54 mg/dLHigh0.70-1.30The [facility] HospitalComment on above:Order Comment: No: Do not add to previous drawPerformed By: #### 02187 #### [facility] [address] [facility] [place] [address], USAeGFR- Adlxzhup36 ml/min/1.73sq mAbnormal>60The [facility] HospitalComment on above:Order Comment: No: Do not add to previous drawPerformed By: #### 68910 #### [facility] [address] [place] [address], USAeGFR- non- Zbxtbpau09 ml/min/1.73sq mAbnormal>60The [facility] HospitalComment on above:Order Comment: No: Do not add to previous drawPerformed By: #### 85163 #### [facility] [address] [place] [address], USAGlucose [Mass/Vol]118 mg/dPDtma31-295Grm [facility] HospitalComment on above:Order Comment: No: Do not add to previous drawPerformed By: #### 82840 #### [facility] [address] [place] [address], USAPotassium [Moles/Vol]4.5 mmol/LNormal3.5-5.1The [facility] HospitalComment on above:Order Comment: No: Do not add to previous drawPerformed By: #### 39073 #### [facility] [address] [facility] [place] [place] [id number], USASodium [Moles/Vol]137 mmol/HRilhmg407-546Qeo [facility] HospitalComment on above:Order Comment: No: Do not add to previous drawPerformed By: #### [id number] #### [facility] [address] [facility] [place] [address], USAUrea nitrogen [Mass/Vol]40 mg/dLHigh7-25The [facility] HospitalComment on above:Order Comment: No: Do not add to previous drawPerformed By: #### 19762 #### [facility] [address] [facility] [place] [address], [facility] HOSPITALCBC W/DIFFon [id number] IMM GRANS0.1 10*3/uLNormal 0.0-0.2The [facility] HospitalComment on above:Order Comment: No: Do not add to previous drawPerformed By: #### 14550 #### [facility] [address] [facility] [place] [place] [address], USAABS NEUTROPHILS5.0 10*3/uLNormal1.6-7.6The [facility] HospitalComment on above:Order Comment: No: Do not add to previous drawPerformed By: #### 24426 #### [facility] [address] [place] [address], USABasophils (Bld) [#/Vol]0.0 10*3/uLNormal0.0-0.2The [facility] HospitalComment on above:Order Comment: No: Do not add to previous drawPerformed By: #### 64682 #### [facility] [address] [place] [address], USABasophils/100 WBC (Bld)0.4 %Normal0.0-1.0The [facility] HospitalComment on above:Order Comment: No: Do not add to previous drawPerformed By: #### 45150 #### [facility] [address] [place] [address], USAEosinophils (Bld) [#/Vol]0.6 10*3/uLHigh0.0-0.5The [facility] HospitalComment on above:Order Comment: No: Do not add to previous drawPerformed By: #### 99777 #### [facility] [address] [place] [address], USAEosinophils/100 WBC (Bld)6.8 %High0.0-6.0The [facility] HospitalComment on above:Order Comment: No: Do not add to previous drawPerformed By: #### 10715 #### [facility] [address] [place] [address], USAErythrocyte distribution width (RBC) [Ratio]14.8 %Normal 11.5-15.0The [facility] HospitalComment on above:Order Comment: No: Do not add to previous drawPerformed By: #### 67960 #### [facility] [address] [place] [address], USAHematocrit (Bld) [Volume fraction]31.9 %Low39.0-50.0The [facility] HospitalComment on above:Order Comment: No: Do not add to previous drawPerformed By: #### 96280 #### [facility] [address] [place] [address], USAHemoglobin (Bld) [Mass/Vol]9.4 g/dLLow13.0-17.0The [facility] HospitalComment on above:Order Comment: No: Do not add to previous drawPerformed By: #### 14896 #### [facility] [address] [place] [address], USAIMMATURE GRANS1.7 %High0.0-1.0The [facility] HospitalComment on above:Order Comment: No: Do not add to previous draw Performed By: #### 09478 #### [facility] [address] [place] [address], USALymphocytes (Bld) [#/Vol]1.2 10*3/uLNormal1.2-4.0The [facility] HospitalComment on above:Order Comment: No: Do not add to previous drawPerformed By: #### 66181 #### [facility] [address] [place] [address], USALymphocytes/100 WBC (Bld)14.8 %Low20.0-45.0The [facility] HospitalComment on above:Order Comment: No: Do not add to previous drawPerformed By: #### 11526 #### [facility] [address] [place] [address], [facility] HOSPITALMCH (RBC) [Entitic mass]26.9 pgLow27.0-33.0The [facility] HospitalComment on above:Order Comment: No: Do not add to previous drawPerformed By: #### 63315 #### [facility] [address] [place] [address], USAMCHC (RBC) [Mass/Vol]29.5 g/dLLow32.0-35.0The [facility] HospitalComment on above:Order Comment: No: Do not add to previous drawPerformed By: #### 58559 #### [facility] [address] [place] [address], [facility] HOSPITALMCV (RBC) [Entitic vol]91.1 dIPjarsm25.0-98.0The [facility] HospitalComment on above:Order Comment: No: Do not add to previous drawPerformed By: #### 85235 #### [facility] [address] [place] [address], USAMonocytes (Bld) [#/Vol]1.1 10*3/uLHigh0.1-1.0The [facility] HospitalComment on above:Order Comment: No: Do not add to previous drawPerformed By: #### 96981 #### [facility] [address] [place] [address], FVLSZKGW15.4 %High5.0-12.0The [facility] HospitalComment on above:Order Comment: No: Do not add to previous drawPerformed By: #### 91420 #### [facility] [address] [place] [address], USANeutrophils/100 WBC (Bld)62.9 %Nmwqqj12.0-72.0The [facility] HospitalComment on above:Order Comment: No: Do not add to previous drawPerformed By: #### 35173 #### [facility] [address] [place] [address], USANucleated RBC/100 WBC (Bld) [Ratio]0 %Normal0-0The [facility] HospitalComment on above:Order Comment: No: Do not add to previous drawPerformed By: #### 36926 #### [facility] [address] [place] [address], USAPLAT LYX263 10*3/fZYiarfc699-649Zak [facility] HospitalComment on above:Order Comment: No: Do not add to previous draw Performed By: #### 60643 #### [facility] [address] [place] [address], USARBC (Bld) [#/Vol]3.50 10*6/uLLow4.20-5.70The [facility] HospitalComment on above:Order Comment: No: Do not add to previous drawPerformed By: #### 40032 #### [facility] [address] [place] [address], USAWBC (Bld) [#/Vol]8.03 10*3/uLNormal4.00-10.60The [facility] HospitalComment on above:Order Comment: No: Do not add to previous drawPerformed By: #### 28406 #### [facility] [address] [place] [address], USAPOC GLUCOSE LABon [id number] [Mass/Vol]192 mg/dLHigh 70-100The [facility] HospitalComment on above:Performed By: #### 88776, 26166 #### [facility] [address] [place] [address], USAGlucose [Mass/Vol]153 mg/pEPwgc28-531Ler [facility] HospitalComment on above:Performed By: #### 28967, 03333 #### [facility] [address] [place] [address], USAGlucose [Mass/Vol]80 mg/nYTvppgi62-973Vjn [facility] HospitalComment on above:Performed By: #### 20680, 03581 #### [facility] [address] [place] [address], USAGlucose [Mass/Vol]48 mg/dLCritically lnq02-896Npr [facility] HospitalComment on above:Order Comment: Left Peural EffusionPerformed By: #### 07032 ####[facility] [place] [address], USAGlucose [Mass/Vol]120 mg/cBCmlc32-494Zvz [facility] HospitalComment on above:Performed By: #### 33543 #### [facility] [address] [place] [address], USAGlucose [Mass/Vol]112 mg/cVOogr75-478Nhv [facility] HospitalComment on above:Performed By: #### 99964, 84264 #### [facility] [address] [facility] [place] [place] [address], [facility] HOSPITALPOC SARS COV2 ANTIGEN NEGATIVEon [id number] SARS COV2 ANTIGEN NEGCANCELEDNormalNEGATIVEThe [facility] HospitalComment on above:Result Comment: The released value NEGATIVE was canceled by ULISES on 07/19/2020 07:11Performed By: #### 95761 #### [facility] [address] [place] [address], [facility]ITALPOC SARS COV2 ANTIGEN NEGNegativeNormalNEGATIVEThe [facility] HospitalComment on above:Result Comment: Negative Results are presumptive and confirmation with a [...] Waiver, Certificate of Compliance, or Certificate of Accreditation.Performed By: #### [id number] #### [facility] [address] [place] [address], USABASIC METABOLIC PANELon [id number] [Mass/Vol]8.2 mg/dLLow8.6-10.3The [facility] HospitalComment on above:Order Comment: No: Do not add to previous drawPerformed By: #### 55144 #### [facility] [address] [place] [address], USAChloride [Moles/Vol]101 mmol/ZMpahjm21-445Njp [facility] HospitalComment on above:Order Comment: No: Do not add to previous drawPerformed By: #### 48419 #### [facility] [address] [place] [address], USACO2 [Moles/Vol]25 mmol/DAyhdvm87-63Pqf [facility] HospitalComment on above:Order Comment: No: Do not add to previous draw Performed By: #### 47226 #### [facility] [address] [place] [address], USACreatinine [Mass/Vol]3.64 mg/dLHigh0.70-1.30The [facility] HospitalComment on above:Order Comment: No: Do not add to previous drawPerformed By: #### 42856 #### [facility] [address] [place] [address], USAeGFR- Emoskzun34 ml/min/1.73sq mAbnormal>60The [facility] HospitalComment on above:Order Comment: No: Do not add to previous drawPerformed By: #### 30126 #### [facility] [address] [place] [address], USAeGFR- non- Cmwjtbrz64 ml/min/1.73sq mAbnormal>60The [facility] HospitalComment on above:Order Comment: No: Do not add to previous drawPerformed By: #### 94609 #### [facility] [address] [place] [address], USAGlucose [Mass/Vol]124 mg/mQJhom17-335Yqu [facility] HospitalComment on above:Order Comment: No: Do not add to previous drawPerformed By: #### 10641 #### [facility] [address] [place] [address], USAPotassium [Moles/Vol]4.3 mmol/LNormal3.5-5.1The [facility] HospitalComment on above:Order Comment: No: Do not add to previous drawPerformed By: #### 98591 #### [facility] [address] [place] [address], USASodium [Moles/Vol]134 mmol/DNef629-585Tue [facility] HospitalComment on above:Order Comment: No: Do not add to previous drawPerformed By: #### 78245 #### [facility] [address] [place] [address], USAUrea nitrogen [Mass/Vol]36 mg/dLHigh7-25The [facility] HospitalComment on above:Order Comment: No: Do not add to previous drawPerformed By: #### 24361 #### [facility] [address] [place] [address], USACBC W/DIFFon [id number] IMM GRANS0.2 10*3/uLNormal 0.0-0.2The [facility] HospitalComment on above:Order Comment: No: Do not add to previous drawPerformed By: #### 39730 #### [facility] [address] [place] [address], USAABS NEUTROPHILS5.8 10*3/uLNormal1.6-7.6The [facility] HospitalComment on above:Order Comment: No: Do not add to previous drawPerformed By: #### 94587 #### [facility] [address] [place] [address], USABasophils (Bld) [#/Vol]0.1 10*3/uLNormal0.0-0.2The [facility] HospitalComment on above:Order Comment: No: Do not add to previous drawPerformed By: #### 53883 #### [facility] [address] [place] [address], USABasophils/100 WBC (Bld)0.6 %Normal0.0-1.0The [facility] HospitalComment on above:Order Comment: No: Do not add to previous drawPerformed By: #### 73262 #### [facility] [address] [place] [address], USAEosinophils (Bld) [#/Vol]0.6 10*3/uLHigh0.0-0.5The [facility] HospitalComment on above:Order Comment: No: Do not add to previous drawPerformed By: #### 88024 #### [facility] [address] [place] [address], USAEosinophils/100 WBC (Bld)7.0 %High0.0-6.0The [facility] HospitalComment on above:Order Comment: No: Do not add to previous drawPerformed By: #### 70079 #### [facility] [address] [facility] [place] [address], USAErythrocyte distribution width (RBC) [Ratio]14.8 %Normal 11.5-15.0The [facility] HospitalComment on above:Order Comment: No: Do not add to previous drawPerformed By: #### 90623 #### [facility] [address] [facility] [place] [address], USAHematocrit (Bld) [Volume fraction]30.0 %Low39.0-50.0The [facility] HospitalComment on above:Order Comment: No: Do not add to previous drawPerformed By: #### 91702 #### [facility] [address] [place] [address], USAHemoglobin (Bld) [Mass/Vol]9.2 g/dLLow13.0-17.0The [facility] HospitalComment on above:Order Comment: No: Do not add to previous drawPerformed By: #### 10342 #### [facility] [address] [facility] [place] [address], USAIMMATURE GRANS1.7 %High0.0-1.0The [facility] HospitalComment on above:Order Comment: No: Do not add to previous draw Performed By: #### 85267 #### [facility] [address] [place] [address], USALymphocytes (Bld) [#/Vol]1.3 10*3/uLNormal1.2-4.0The [facility] HospitalComment on above:Order Comment: No: Do not add to previous drawPerformed By: #### 86678 #### [facility] [address] [facility] [place] [address], USALymphocytes/100 WBC (Bld)14.3 %Low20.0-45.0The [facility] HospitalComment on above:Order Comment: No: Do not add to previous drawPerformed By: #### 51825 #### [facility] [address] [facility] [place] [address], USAMCH (RBC) [Entitic mass]27.3 jwRkaxvi02.0-33.0The [facility] HospitalComment on above:Order Comment: No: Do not add to previous drawPerformed By: #### 06329 #### [facility] [address] [place] [address], [facility] HOSPITALMCHC (RBC) [Mass/Vol]30.7 g/dLLow32.0-35.0The [facility] HospitalComment on above:Order Comment: No: Do not add to previous drawPerformed By: #### 07237 #### [facility] [address] [place] [address], [facility] HOSPITALMCV (RBC) [Entitic vol]89.0 iILivfob46.0-98.0The [facility] HospitalComment on above:Order Comment: No: Do not add to previous drawPerformed By: #### 32736 #### [facility] [address] [place] [address], USAMonocytes (Bld) [#/Vol]1.0 10*3/uLNormal0.1-1.0The [facility] HospitalComment on above:Order Comment: No: Do not add to previous drawPerformed By: #### 22188 #### [facility] [address] [place] [address], AJAEWAVA43.9 %Normal5.0-12.0The [facility] HospitalComment on above:Order Comment: No: Do not add to previous drawPerformed By: #### 53270 #### [facility] [address] [address], USANeutrophils/100 WBC (Bld)65.5 %Qwasov59.0-72.0The [facility] HospitalComment on above:Order Comment: No: Do not add to previous drawPerformed By: #### 25147 #### [facility] [address] [place] [address], USANucleated RBC/100 WBC (Bld) [Ratio]0 %Normal0-0The [facility] HospitalComment on above:Order Comment: No: Do not add to previous drawPerformed By: #### 34209 #### [facility] [address] [place] [address], USAPLAT YZR286 10*3/aTXfqgbm231-096Prh [facility] HospitalComment on above:Order Comment: No: Do not add to previous draw Performed By: #### 46487 #### [facility] [address] [place] [address], USARBC (Bld) [#/Vol]3.37 10*6/uLLow4.20-5.70The [facility] HospitalComment on above:Order Comment: No: Do not add to previous drawPerformed By: #### 66831 #### [facility] [address] [place] [address], USAWBC (Bld) [#/Vol]8.86 10*3/uLNormal4.00-10.60The [facility] HospitalComment on above:Order Comment: No: Do not add to previous drawPerformed By: #### 58839 #### [facility] [address] [place] [address], USAPOC GLUCOSE LABon [id number] [Mass/Vol]101 mg/dLHigh 70-100The [facility] HospitalComment on above:Performed By: #### 91372, 36666 #### [facility] [address] [place] [address], USAGlucose [Mass/Vol]76 mg/dKYsgsnq40-878Pbj [facility] HospitalComment on above:Performed By: #### 02031, 40270 #### [facility] [address] [place] [address], USAGlucose [Mass/Vol]75 mg/rEXmsqyo56-170Nkn [facility] HospitalComment on above:Performed By: #### 58233 ####[facility] [place] [address], USAGlucose [Mass/Vol] 198 mg/cZYnjn10-660Fgz [facility] HospitalComment on above: Performed By: #### 86653 ####[facility] [place] [address], USAGlucose [Mass/Vol]205 mg/bQLpzh97-055Imd [facility] HospitalComment on above:Performed By: #### 90170 #### [facility] [address] [place] [address], USAGlucose [Mass/Vol]187 mg/iWBfya54-111Vim [facility] HospitalComment on above:Performed By: #### 74241, 20057 #### [facility] [address] [place] [address], USAGlucose [Mass/Vol]131 mg/tKBvgd81-708Mqt [facility] HospitalComment on above:Performed By: #### 02754 #### [facility] [address] [place] [address], USAGlucose [Mass/Vol]75 mg/hYCqvohi78-818Ral [facility] HospitalComment on above:Performed By: #### 60306 #### [facility] [address] [place] [address], USAGlucose [Mass/Vol]69 mg/sHYgm16-912Npq [facility] HospitalComment on above:Performed By: #### 15409 ####[facility] [place] [address], USABASIC METABOLIC PANELon 64-54-7776Ijnuprk [Mass/Vol]8.4 mg/dLLow8.6-10.3The [facility] HospitalComment on above:Order Comment: No: Do not add to previous draw Performed By: #### 39929 #### [facility] [address] [place] [address], USAChloride [Moles/Vol]105 mmol/JVuxduw16-035Trn [facility] HospitalComment on above:Order Comment: No: Do not add to previous drawPerformed By: #### 95351 #### [facility] [address] [place] [address], USACO2 [Moles/Vol]24 mmol/UCsqzcl72-55Cqb [facility] HospitalComment on above:Order Comment: No: Do not add to previous draw Performed By: #### 32040 #### [facility] [address] [place] [address], USACreatinine [Mass/Vol]4.14 mg/dLHigh0.70-1.30The [facility] HospitalComment on above:Order Comment: No: Do not add to previous drawPerformed By: #### 85442 #### [facility] [address] [place] [address], USAeGFR- Vnvysnrc93 ml/min/1.73sq mAbnormal>60The [facility] HospitalComment on above:Order Comment: No: Do not add to previous drawPerformed By: #### 24358 #### [facility] [address] [place] [address], USAeGFR- non- Wxqkuzlu43 ml/min/1.73sq mAbnormal>60The [facility] HospitalComment on above:Order Comment: No: Do not add to previous drawPerformed By: #### 69178 #### [facility] [address] [place] [address], USAGlucose [Mass/Vol]127 mg/cBPgns83-002Uan [facility] HospitalComment on above:Order Comment: No: Do not add to previous drawPerformed By: #### 07995 #### [facility] [address] [place] [address], USAPotassium [Moles/Vol]4.0 mmol/LNormal3.5-5.1The [facility] HospitalComment on above:Order Comment: No: Do not add to previous drawPerformed By: #### 76159 #### [facility] [address] [place] [address], USASodium [Moles/Vol]136 mmol/OUizzdm892-911Qxo [facility] HospitalComment on above:Order Comment: No: Do not add to previous drawPerformed By: #### 41329 #### [facility] [address] [place] [address], USAUrea nitrogen [Mass/Vol]35 mg/dLHigh7-25The [facility] HospitalComment on above:Order Comment: No: Do not add to previous drawPerformed By: #### 41371 #### [facility] [address] [place] [address], USACBC COMPLETE BLOOD COUNTon 81-92-4625Iksfyvozwoz distribution width (RBC) [Ratio]14.6 %Ykfrab66.5-15.0The [facility] HospitalComment on above:Order Comment: No: Do not add to previous draw Performed By: #### 44942 #### [facility] [address] [facility] [place] [address], USAHematocrit (Bld) [Volume fraction]31.8 %Low39.0-50.0The [facility] HospitalComment on above:Order Comment: No: Do not add to previous drawPerformed By: #### 54337 #### [facility] [address] [place] [address], USAHemoglobin (Bld) [Mass/Vol]9.7 g/dLLow13.0-17.0The [facility] HospitalComment on above:Order Comment: No: Do not add to previous drawPerformed By: #### 28093 #### [facility] [address] [place] [address], USAMCH (RBC) [Entitic mass]27.2 hsChzrao89.0-33.0The [facility] HospitalComment on above:Order Comment: No: Do not add to previous drawPerformed By: #### [id number] #### [facility] [address] [place] [address], [facility] HOSPITALMCHC (RBC) [Mass/Vol]30.5 g/dLLow32.0-35.0The [facility] HospitalComment on above:Order Comment: No: Do not add to previous drawPerformed By: #### 04941 #### [facility] [address] [place] [address], [facility] HOSPITALMCV (RBC) [Entitic vol]89.3 hCIitges25.0-98.0The [facility] HospitalComment on above:Order Comment: No: Do not add to previous drawPerformed By: #### 48069 #### [facility] [address] [place] [address], USANucleated RBC/100 WBC (Bld) [Ratio]0 %Normal0-0The [facility] HospitalComment on above:Order Comment: No: Do not add to previous drawPerformed By: #### 81019 #### [facility] [address] [place] [address], USAPLAT [id number] 10*3/fPJkdlez701-802Sdw [facility] HospitalComment on above:Order Comment: No: Do not add to previous draw Performed By: #### 03563 #### [facility] [address] [address], USARBC (Bld) [#/Vol]3.56 10*6/uLLow4.20-5.70The [facility] HospitalComment on above:Order Comment: No: Do not add to previous drawPerformed By: #### 43230 #### [facility] [address] [place] [address], USAWBC (Bld) [#/Vol]8.88 10*3/uLNormal4.00-10.60The [facility] HospitalComment on above:Order Comment: No: Do not add to previous drawPerformed By: #### [id number] #### [facility] [address] [place] [address], USAPOC GLUCOSE LABon [id number] [Mass/Vol]94 mg/dL Lvkjsu79-242Yzy [facility] HospitalComment on above:Performed By: #### 82315 #### [facility] [address] [place] [address], USAGlucose [Mass/Vol]62 mg/zOSyc34-276Aib [facility] HospitalComment on above:Performed By: #### 71087, 33349 #### [facility] [address] [place] [address], USAGlucose [Mass/Vol]80 mg/wWWgnkxp29-873Akp [facility] HospitalComment on above:Performed By: #### 81556, 48033 #### [facility] [address] [place] [address], USAGlucose [Mass/Vol]99 mg/bSVjiizw82-255Did [facility] HospitalComment on above:Performed By: #### 93043 ####[facility] [place] [address], USAGlucose [Mass/Vol] 203 mg/aBTdwy42-810Wrp [facility] HospitalComment on above: Performed By: #### 44550 ####[facility] [place] [address], USAGlucose [Mass/Vol]151 mg/xHVswh25-975Hsj [facility] HospitalComment on above:Performed By: #### 44148, 35214 #### [facility] [address] [place] [address], USAANAon 88-62-3359PSU SCREEN<1:40Normal<1:40,1:40The [facility] HospitalComment on above:Order Comment: No: Do not add to previous drawPerformed By: #### 99143 #### [facility] [address] [place] [address], USAANCA IGG WITH REFLEX [id number] 89-51-5997TGKQ<1:20Normal <1:20The [facility] HospitalComment on above:Order Comment: No: Do not add to previous drawResult Comment: The ANCA IFA is <1:20; therefore, [...] collagen vascular disease or arthritis. Performed By: [employer] [address] [place] [id number] Cannoneer: CATHY Ramirez METABOLIC PANELon 07-15-2020 Calcium [Mass/Vol]8.5 mg/dLLow8.6-10.3The [facility] Comment on above:Order Comment: No: Do not add to previous drawPerformed By: #### 24251 #### [facility] [address] [place] [address], USAChloride [Moles/Vol]103 mmol/JJnhmvk30-635Qud [facility] HospitalComment on above:Order Comment: No: Do not add to previous drawPerformed By: #### 57405 #### [facility] [address] [place] [address], USACO2 [Moles/Vol]23 mmol/OMjxcct45-12Jpr [facility] HospitalComment on above:Order Comment: No: Do not add to previous draw Performed By: #### 25938 #### [facility] [address] [place] [address], USACreatinine [Mass/Vol]4.38 mg/dLHigh0.70-1.30The [facility] HospitalComment on above:Order Comment: No: Do not add to previous drawPerformed By: #### 57202 #### [facility] [address] [place] [address], USAeGFR- Idmmbbgc28 ml/min/1.73sq mAbnormal>60The [facility] HospitalComment on above:Order Comment: No: Do not add to previous drawPerformed By: #### 84022 #### [facility] [address] [place] [address], USAeGFR- non- Bgfhijet29 ml/min/1.73sq mAbnormal>60The [facility] HospitalComment on above:Order Comment: No: Do not add to previous drawPerformed By: #### 80070 #### [facility] [address] [place] [address], USAGlucose [Mass/Vol]154 mg/kOUqbs64-092Tlr [facility] HospitalComment on above:Order Comment: No: Do not add to previous drawPerformed By: #### 14141 #### [facility] [address] [place] [address], USAPotassium [Moles/Vol]4.5 mmol/LNormal3.5-5.1The [facility] HospitalComment on above:Order Comment: No: Do not add to previous drawPerformed By: #### 63172 #### [facility] [address] [place] [address], USASodium [Moles/Vol]135 mmol/KWhl401-822Qzq [facility] HospitalComment on above:Order Comment: No: Do not add to previous drawPerformed By: #### 12805 #### [facility] [address] [place] [address], USAUrea nitrogen [Mass/Vol]32 mg/dLHigh7-25The [facility] HospitalComment on above:Order Comment: No: Do not add to previous drawPerformed By: #### 83353 #### [facility] [address] [place] [address], [facility] HOSPITALC REACTIVE PROTEINon [id number] [Mass/Vol]138.0 mg/LHigh 0.0-7.0The [facility] HospitalComment on above:Order Comment: FROM [id number] By: #### 13788 #### [facility] [address] [place] [address], [facility] HOSPITALCBC W/DIFFon [id number] IMM GRANS0.1 10*3/uLNormal 0.0-0.2The [facility] HospitalComment on above:Performed By: #### 00893 #### [facility] [address] [facility] [place] [address], USAABS NEUTROPHILS7.3 10*3/uLNormal1.6-7.6The [facility] HospitalComment on above:Performed By: #### 34735 #### [facility] [address] [facility] [place] [address], USABasophils (Bld) [#/Vol]0.0 10*3/uLNormal0.0-0.2The [facility] HospitalComment on above:Performed By: #### 25882 #### [facility] [address] [facility] [place] [address], USABasophils/100 WBC (Bld)0.3 %Normal0.0-1.0The [facility] HospitalComment on above:Performed By: #### 59755 #### [facility] [address] [facility] [place] [address], USAEosinophils (Bld) [#/Vol]0.5 10*3/uLNormal0.0-0.5The [facility] HospitalComment on above:Performed By: #### 35240 #### [facility] [address] [facility] [place] [address], USAEosinophils/100 WBC (Bld)5.1 %Normal0.0-6.0The [facility] HospitalComment on above:Performed By: #### 48591 #### [facility] [address] [facility] [place] [address], USAErythrocyte distribution width (RBC) [Ratio]14.9 %Normal 11.5-15.0The [facility] HospitalComment on above:Performed By: #### 59138 #### [facility] [address] [facility] [place] [address], USAHematocrit (Bld) [Volume fraction]33.0 %Low39.0-50.0The [facility] HospitalComment on above:Performed By: #### 00248 #### [facility] [address] [facility] [place] [address], USAHemoglobin (Bld) [Mass/Vol]9.9 g/dLLow13.0-17.0The [facility] HospitalComment on above:Performed By: #### 97773 #### [facility] [address] [facility] [place] [address], USAIMMATURE GRANS1.4 %High0.0-1.0The [facility] HospitalComment on above:Performed By: #### 79184 #### [facility] [address] [facility] [place] [address], USALymphocytes (Bld) [#/Vol]1.1 10*3/uLLow1.2-4.0The [facility] HospitalComment on above:Performed By: #### 67488 #### [facility] [address] [place] [address], USALymphocytes/100 WBC (Bld)11.0 %Low20.0-45.0The [facility] HospitalComment on above:Performed By: #### 60418 #### [facility] [address] [place] [address], [facility]H (RBC) [Entitic mass]27.0 iqOxalst46.0-33.0The [facility] HospitalComment on above:Performed By: #### 31314 #### [facility] [address] [place] [address], [facility] HOSPITALMCHC (RBC) [Mass/Vol]30.0 g/dLLow32.0-35.0The [facility] HospitalComment on above:Performed By: #### 64601 #### [facility] [address] [facility] [place] [address], [facility] HOSPITALMCV (RBC) [Entitic vol]90.2 hTDpcebr24.0-98.0The [facility] HospitalComment on above:Performed By: #### 76742 #### [facility] [address] [facility] [place] [address], USAMonocytes (Bld) [#/Vol]1.1 10*3/uLHigh0.1-1.0The [facility] HospitalComment on above:Performed By: #### 49699 #### [facility] [address] [place] [address], THDIBWIC32.9 %Normal5.0-12.0The [facility] HospitalComment on above:Performed By: #### 42267 #### [facility] [address] [place] [address], USANeutrophils/100 WBC (Bld)71.3 %Rwxjkn38.0-72.0The [facility] HospitalComment on above:Performed By: #### 67876 #### [facility] [address] [place] [address], USANucleated RBC/100 WBC (Bld) [Ratio]0 %Normal0-0The [facility] HospitalComment on above:Performed By: #### 40446 #### [facility] [address] [place] [address], USAPLAT ETY564 10*3/wARhdifq988-980Yae [facility] HospitalComment on above:Performed By: #### 86384 #### [facility] [address] [place] [address], USARBC (Bld) [#/Vol]3.66 10*6/uLLow4.20-5.70The [facility] HospitalComment on above:Performed By: #### 13569 #### [facility] [address] [place] [address], USAWBC (Bld) [#/Vol]10.23 10*3/uLNormal4.00-10.60The [facility] HospitalComment on above:Performed By: #### 18397 #### [facility] [address] [address], USACOMPLEMENT [id number] 3108 mg/kDJtoebd11-803 The [facility] HospitalComment on above:Order Comment: No: Do not add to previous drawPerformed By: #### 19562 #### [facility] [address] [place] [address], USACOMPLEMENT [id number] 431 mg/eECegvof09-19Qgz [facility] HospitalComment on above:Order Comment: No: Do not add to previous drawPerformed By: #### 13242 #### [facility] [address] [place] [address], USAGLOMR BASMT MEMBRon [id number] BASMT MBRNNegative AbnormalNEGATIVEThe [facility] HospitalComment on above:Order Comment: No: Do not add to previous drawResult Comment: Note: The performance characteristics of this test were validated by the [facility] Immunology laboratory. It has not been cleared or approved by the U.[place]. Food and Drug Administration. The results are not intended to be used as the sole means for clinical diagnosis or patient management decisions. [facility] is authorized under CLIA to perform high-complexity testing.Performed By: #### 56289 #### [facility] [address] [facility] [place] [place] [address], USAPOC GLUCOSE LABon 55-67-6925Louuhbt [Mass/Vol]107 mg/dLHigh 70-100The [facility] HospitalComment on above:Performed By: #### 70124, 44532 #### [facility] [address] [facility] [place] [address], USAGlucose [Mass/Vol]84 mg/rANpomkr55-674Vcs [facility] HospitalComment on above:Performed By: #### 99388 #### [facility] [address] [facility] [place] [address], USAGlucose [Mass/Vol]164 mg/qQGfej11-339Gsg [facility] HospitalComment on above:Performed By: #### 87641 ####[facility] [facility] [place] [address], USAGlucose [Mass/Vol] 141 mg/wCEgrh11-464Dsx [facility] HospitalComment on above: Performed By: #### 03020, 40591 #### [facility] [address] [facility] [place] [address], USAPORTABLE CHEST 1 VIEWon [id number] CHEST 1 VIEW [facility] Department of Radiology [address] [place] [address] Patient Name: RASHARD LYMAN : 1960 Sex: M Age: Race: White Pt. Location: [address] [place] [address] Patient Status: I Ordered Date: 07/15/2020 7:00:00 [...] exam. Electronically signed: Nir Swartz. Transcribed by: [email or web address], User Resident: Electronically Signed by: NIR SWARTZ @ 07/15/2020 07:34 AMNormalRegency Hospital ToledoComment on above:Order Comment: evaluate for Effusion*AFB CULTUREon 07-14-2020*AFB CULTUREClinical Report: (D) Specimen/Source: FLUID/PLEURAL FLUID Collected: 07/14/2020 13:03 Status: Final Last Updated: 08/26/2020 08:52 (1) Left Peural Effusion AFB (Final) No Acid Fast Bacilli Seen CULT RES (Final) No growth after 42 days of incubationMemorial Health SystemComment on above:Order Comment: Left Peural EffusionPerformed By: #### 72947 #### [facility] [address]*ANAEROBIC CULTUREon 07-14-2020*ANAEROBIC CULTUREClinical Report: (D) Specimen/Source: FLUID/PLEURAL FLUID Collected: 07/14/2020 13:03 Status: Final Last Updated: 07/19/2020 08:08 (1) Left Peural Effusion CULT RES (Final) No Anaerobes Isolated 5 DaysMemorial Health SystemComment on above:Order Comment: Left Peural EffusionPerformed By: #### 59518 #### [facility] [address]*BODY FLUID CULTUREon 07-14-2020*BODY FLUID CULTUREClinical Report: (D) Specimen/Source: FLUID/PLEURAL FLUID Collected: 07/14/2020 13:03 Status: Final Last Updated: 07/19/2020 07:53 (1) Left Peural Effusion GRAM (Final) Polys PRESENT No Bacteria Seen CYTOSPUN (Final) This Gram Stain was done on a cytocentrifuged specimen CULT RES (Final) No Growth Day 5NoEast Liverpool City HospitalComment on above: Order Comment: Left Peural EffusionPerformed By: #### 44493 #### [address]*FUNGAL CULTUREon 07-14-2020*FUNGAL CULTUREClinical Report: (D) Specimen/Source: FLUID/PLEURAL FLUID Collected: 07/14/2020 13:03 Status: Final Last Updated: 08/15/2020 08:41 (1) Left Peural Effusion FS (Final) No Yeast or Fungal Elements Seen CULT RES (Final) Culture negative for fungusMemorial Health SystemComment on above:Order Comment: Left Peural EffusionPerformed By: #### 22038 #### [facility] [address]*VIRAL NON RESPIRATORY CULTUREon 25-86-3831Hnlifsdt identified Cx Nom (Unsp spec)NormalThe [facility] Comment on above:Order Comment: Left Peural EffusionResult Comment: NEGATIVE. No Herpes Simplex Virus detected by [...] Virus detected by Enzyme Linked Virus Inducible S.[facility] HospitalComment on above: Order Comment: Left Peural EffusionResult Comment: Test Performed by [facility] [address] - Released 07/20/2020 14:10 Result changed by IF on 07/17/2020 14:17. The previous value was Test Performed by [facility] [address] [phone].. Result changed by IF on 07/18/2020 12:17. The previous value was Test Performed by [facility] [address] [phone].. Result changed by IF on 07/20/2020 14:10. The previous value was Test Performed by [facility] [address] [phone]..REPORT STATUSFINAL 07/20/2020[facility] Comment on above:Order Comment: Left Peural EffusionResult Comment: Result changed by IF on 07/20/2020 14:10. The previous value was Preliminary.APTTon [id number] Coag (Bld) [Time]41.7 sHigh25.0-35.0The [facility] HospitalComment on above:Order Comment: No: Do not add to previous drawCouldn't get a full blue tubeResult Comment: ALL RESULTS MUST BE INTERPRETED WITH RESPECT TO BLOOD DRAWING ARTIFACT OR DILUTION ERROR OF ANTICOAGULANT AT THE TIME OF SAMPLING. THE APTT SHOULD NOT BE USED TO MONITOR UNFRACTIONATED HEPARIN THERAPY, THIS LABORATORY NO LONGER HAS AN ESTABLISHED THERAPEUTIC RANGE BASED ON THE APTT. IT IS RECOMMENDED THAT THE UFH - HEPARIN ASSAY (ANTI-XA ACTIVITY) BE USED FOR THIS PURPOSE.Performed By: #### 07545 #### [facility] [address] [place] [address], USAaPTT Coag (Bld) [Time]44.9 sHigh25.0-35.0The [facility] HospitalComment on above:Order Comment: No: Do not add to previous drawResult Comment: ALL RESULTS MUST BE INTERPRETED WITH RESPECT TO BLOOD DRAWING ARTIFACT OR DILUTION ERROR OF ANTICOAGULANT AT THE TIME OF SAMPLING. THE APTT SHOULD NOT BE USED TO MONITOR UNFRACTIONATED HEPARIN THERAPY, THIS LABORATORY NO LONGER HAS AN ESTABLISHED THERAPEUTIC RANGE BASED ON THE APTT. IT IS RECOMMENDED THAT THE UFH - HEPARIN ASSAY (ANTI-XA ACTIVITY) BE USED FOR THIS PURPOSE.Performed By: #### 45807, 97489 #### [facility] [address] [place] [address], USABASIC METABOLIC PANELon 97-07-3278Ejpokbd [Mass/Vol]8.6 mg/dLNormal8.6-10.3The [facility] HospitalComment on above:Order Comment: No: Do not add to previous drawPerformed By: #### 38285 #### [facility] [address] [place] [address], USAChloride [Moles/Vol]102 mmol/QWpeqjb31-882Zya [facility] HospitalComment on above:Order Comment: No: Do not add to previous drawPerformed By: #### 24040 #### [facility] [address] [place] [address], USACO2 [Moles/Vol]24 mmol/GPwgdwg33-63Ldi [facility] HospitalComment on above:Order Comment: No: Do not add to previous draw Performed By: #### 86343 #### [facility] [address] [place] [address], USACreatinine [Mass/Vol]3.44 mg/dLHigh0.70-1.30The [facility] HospitalComment on above:Order Comment: No: Do not add to previous drawPerformed By: #### 72951 #### [facility] [address] [place] [address], USAeGFR- Aljcgigq48 ml/min/1.73sq mAbnormal>60The [facility] HospitalComment on above:Order Comment: No: Do not add to previous drawPerformed By: #### 09208 #### [facility] [address] [place] [address], USAeGFR- non- Polwgudv72 ml/min/1.73sq mAbnormal>60The [facility] HospitalComment on above:Order Comment: No: Do not add to previous drawPerformed By: #### 04635 #### [facility] [address] [place] [address], USAGlucose [Mass/Vol]355 mg/iTRwap46-431Ned [facility] HospitalComment on above:Order Comment: No: Do not add to previous drawPerformed By: #### 12827 #### [facility] [address] [place] [address], USAPotassium [Moles/Vol]4.6 mmol/LNormal3.5-5.1The [facility] HospitalComment on above:Order Comment: No: Do not add to previous drawPerformed By: #### 51773 #### [facility] [address] [place] [address], USASodium [Moles/Vol]133 mmol/FVct700-090Isc [facility] HospitalComment on above:Order Comment: No: Do not add to previous drawPerformed By: #### 97002 #### [facility] [address] [place] [address], USAUrea nitrogen [Mass/Vol]27 mg/dLHigh7-25The [facility] HospitalComment on above:Order Comment: No: Do not add to previous drawPerformed By: #### 35330 #### [facility] [address] [facility] [place] [address], USABNP (B-TYPE NATRIURETIC PEPTIDE)on 10-21-8738Pcoceecjcnu peptide B (Bld) [Mass/Vol]19 pg/mLNormal0-100The [facility] HospitalComment on above:Order Comment: Left Peural EffusionResult Comment: Given the appropriate clinical setting a BNP result of >100 pg/mL indicates congestive heart failure.Performed By: #### 56805 #### [facility] [address] [facility] [place] [address], USACBC COMPLETE BLOOD COUNTon 34-29-2691Wksbyqgnjtc distribution width (RBC) [Ratio]14.6 %Etnzqr61.5-15.0The [facility] HospitalComment on above:Order Comment: No: Do not add to previous draw Performed By: #### 11021 #### [facility] [address] [facility] [place] [address], USAHematocrit (Bld) [Volume fraction]35.3 %Low39.0-50.0The [facility] HospitalComment on above:Order Comment: No: Do not add to previous drawPerformed By: #### 83721 #### [facility] [address] [facility] [place] [address], USAHemoglobin (Bld) [Mass/Vol]11.1 g/dLLow13.0-17.0The [facility] HospitalComment on above:Order Comment: No: Do not add to previous drawPerformed By: #### 51673 #### [facility] [address] [facility] [place] [address], USAMCH (RBC) [Entitic mass]27.5 dhRkfkdm56.0-33.0The [facility] HospitalComment on above:Order Comment: No: Do not add to previous drawPerformed By: #### 22735 #### [facility] [address] [address], [facility] HOSPITALMCHC (RBC) [Mass/Vol]31.4 g/dLLow32.0-35.0The [facility] HospitalComment on above:Order Comment: No: Do not add to previous drawPerformed By: #### 24292 #### [facility] [address] [address], [facility] HOSPITALMCV (RBC) [Entitic vol]87.6 uFJrpicm46.0-98.0The [facility] HospitalComment on above:Order Comment: No: Do not add to previous drawPerformed By: #### 32918 #### [facility] [address] [address], USANucleated RBC/100 WBC (Bld) [Ratio]0 %Normal0-0The [facility] HospitalComment on above:Order Comment: No: Do not add to previous drawPerformed By: #### 24761 #### [facility] [address] [address], USAPLAT [id number] 10*3/hUMvcooj097-280Qqy [facility] HospitalComment on above:Order Comment: No: Do not add to previous draw Performed By: #### 52046 #### [facility] [address] [address], USARBC (Bld) [#/Vol]4.03 10*6/uLLow4.20-5.70The [facility] HospitalComment on above:Order Comment: No: Do not add to previous drawPerformed By: #### 33664 #### [facility] [address] [place] [address], USAWBC (Bld) [#/Vol]12.59 10*3/uLHigh4.00-10.60The [facility] HospitalComment on above:Order Comment: No: Do not add to previous drawPerformed By: #### 14620 #### [facility] [address] [place] [address], [facility]OSPITALCBC W/DIFFon 53-23-4926HZK IMM GRANS0.2 10*3/uLNormal 0.0-0.2The [facility] HospitalComment on above:Order Comment: No: Do not add to previous drawPerformed By: #### [id number] #### [facility] [address] [facility] [place] [address], USAABS NEUTROPHILS7.9 10*3/uLHigh1.6-7.6The [facility] HospitalComment on above:Order Comment: No: Do not add to previous drawPerformed By: #### 48068 #### [facility] [address] [place] [address], USABasophils (Bld) [#/Vol]0.1 10*3/uLNormal0.0-0.2The [facility] HospitalComment on above:Order Comment: No: Do not add to previous drawPerformed By: #### 62045 #### [facility] [address] [place] [place] [address], USABasophils/100 WBC (Bld)0.5 %Normal0.0-1.0The [facility] HospitalComment on above:Order Comment: No: Do not add to previous drawPerformed By: #### 51608 #### [facility] [address] [facility] [place] [address], USAEosinophils (Bld) [#/Vol]0.5 10*3/uLNormal0.0-0.5The [facility] HospitalComment on above:Order Comment: No: Do not add to previous drawPerformed By: #### 12470 #### [facility] [address] [facility] [place] [address], USAEosinophils/100 WBC (Bld)4.3 %Normal0.0-6.0The [facility] HospitalComment on above:Order Comment: No: Do not add to previous drawPerformed By: #### [id number] #### [facility] [address] [facility] [address] [place] [id number], USAErythrocyte distribution width (RBC) [Ratio]14.6 %Normal 11.5-15.0The [facility] Reserve HospitalComment on above:Order Comment: No: Do not add to previous drawPerformed By: #### [id number] #### [facility] [address] [facility] [place] [address], USAHematocrit (Bld) [Volume fraction]34.2 %Low39.0-50.0The [facility] HospitalComment on above:Order Comment: No: Do not add to previous drawPerformed By: #### 52109 #### [facility] [address] [facility] [place] [address], USAHemoglobin (Bld) [Mass/Vol]10.3 g/dLLow13.0-17.0The [facility] HospitalComment on above:Order Comment: No: Do not add to previous drawPerformed By: #### [id number] #### [facility] [address] [facility] [place] [address], USAIMMATURE GRANS1.4 %High0.0-1.0The [facility] HospitalComment on above:Order Comment: No: Do not add to previous draw Performed By: #### 84492 #### [facility] [address] [facility] [place] [address], USALymphocytes (Bld) [#/Vol]1.3 10*3/uLNormal1.2-4.0The [facility] HospitalComment on above:Order Comment: No: Do not add to previous drawPerformed By: #### 90836 #### [facility] [address] [place] [address], USALymphocytes/100 WBC (Bld)11.3 %Low20.0-45.0The [facility] HospitalComment on above:Order Comment: No: Do not add to previous drawPerformed By: #### [id number] #### [facility] [address] [place] [address], [facility] (RBC) [Entitic mass]27.0 ocOzpyeb76.0-33.0The [facility] HospitalComment on above:Order Comment: No: Do not add to previous drawPerformed By: #### 94016 #### [facility] [address] [place] [address], [facility] (RBC) [Mass/Vol]30.1 g/dLLow32.0-35.0The [facility] HospitalComment on above:Order Comment: No: Do not add to previous drawPerformed By: #### 80869 #### [facility] [address] [place] [address], [facility] (RBC) [Entitic vol]89.5 gFMnzfcz45.0-98.0The [facility] HospitalComment on above:Order Comment: No: Do not add to previous drawPerformed By: #### 07744 #### [facility] [address] [place] [address], USAMonocytes (Bld) [#/Vol]1.4 10*3/uLHigh0.1-1.0The [facility] HospitalComment on above:Order Comment: No: Do not add to previous drawPerformed By: #### 11817 #### [facility] [address] [place] [address], BVJZDZLZ59.6 %High5.0-12.0The [facility] HospitalComment on above:Order Comment: No: Do not add to previous drawPerformed By: #### 65553 #### [facility] [address] [place] [address], USANeutrophils/100 WBC (Bld)69.9 %Dlwybk31.0-72.0The [facility] HospitalComment on above:Order Comment: No: Do not add to previous drawPerformed By: #### 79108 #### [facility] [address] [place] [address], USANucleated RBC/100 WBC (Bld) [Ratio]0 %Normal0-0The [facility] HospitalComment on above:Order Comment: No: Do not add to previous drawPerformed By: #### [id number] #### [facility] [address] [address], USAPLAT LRW191 10*3/fAPejexd185-287Bts [facility] HospitalComment on above:Order Comment: No: Do not add to previous draw Performed By: #### 07687 #### [facility] [address] [address], USARBC (Bld) [#/Vol]3.82 10*6/uLLow4.20-5.70The [facility] HospitalComment on above:Order Comment: No: Do not add to previous drawPerformed By: #### 48573 #### [facility] [address] [address], USAWBC (Bld) [#/Vol]11.28 10*3/uLHigh4.00-10.60The [facility] HospitalComment on above:Order Comment: No: Do not add to previous drawPerformed By: #### 10300 #### [facility] [address] [address], USACOMP METABOLIC PANELon 24-07-3791Keoycxn [Mass/Vol]3.1 g/dL Low3.5-5.7The [facility] HospitalComment on above:Order Comment: No: Do not add to previous drawPerformed By: #### 16542 #### [facility] [address] [place] [address], USAALKALINE CSAGKV02 IU/JVwktge44-056Crb [facility] HospitalComment on above:Order Comment: No: Do not add to previous draw Performed By: #### [id number] #### [facility] [address] [place] [address], USAALT [Catalytic activity/Vol]8 U/LNormal7-52The [facility] HospitalComment on above:Order Comment: No: Do not add to previous drawPerformed By: #### 11741 #### [facility] [address] [place] [address], USAAST [Catalytic activity/Vol]11 U/EYpe11-29Eki [facility] HospitalComment on above:Order Comment: No: Do not add to previous drawPerformed By: #### 31395 #### [facility] [address] [place] [address], USABilirubin [Mass/Vol]0.3 mg/dLNormal0.3-1.0The [facility] HospitalComment on above:Order Comment: No: Do not add to previous drawPerformed By: #### 20651 #### [facility] [address] [place] [address], USACalcium [Mass/Vol]8.8 mg/dLNormal8.6-10.3The [facility] HospitalComment on above:Order Comment: No: Do not add to previous drawPerformed By: #### 18321 #### [facility] [address] [place] [address], USAChloride [Moles/Vol]101 mmol/JXfvqjy50-168Apr [facility] HospitalComment on above:Order Comment: No: Do not add to previous drawPerformed By: #### 67810 #### [facility] [address] [place] [address], USACO2 [Moles/Vol]22 mmol/QJcivvt87-87Azv [facility] HospitalComment on above:Order Comment: No: Do not add to previous draw Performed By: #### 82174 #### [facility] [address] [place] [address], USACreatinine [Mass/Vol]3.38 mg/dLHigh0.70-1.30The [facility] HospitalComment on above:Order Comment: No: Do not add to previous drawPerformed By: #### [id number] #### [facility] [address] [place] [address], USAeGFR- Puvmdjtg53 ml/min/1.73sq mAbnormal>60The [facility] HospitalComment on above:Order Comment: No: Do not add to previous drawPerformed By: #### 74618 #### [facility] [address] [place] [address], USAeGFR- non- Bzczprii09 ml/min/1.73sq mAbnormal>60The [facility] HospitalComment on above:Order Comment: No: Do not add to previous drawPerformed By: #### 73960 #### [facility] [address] [place] [address], USAGlucose [Mass/Vol]324 mg/zWVirx33-489Lfv [facility] HospitalComment on above:Order Comment: No: Do not add to previous drawPerformed By: #### 46201 #### [facility] [address] [place] [address], USAPotassium [Moles/Vol]4.5 mmol/LNormal3.5-5.1The [facility] HospitalComment on above:Order Comment: No: Do not add to previous drawPerformed By: #### 23839 #### [facility] [address] [place] [address], USAProtein [Mass/Vol]6.7 g/dLNormal6.0-8.3The [facility] HospitalComment on above:Order Comment: No: Do not add to previous drawPerformed By: #### 22113 #### [facility] [address] [place] [address], USASodium [Moles/Vol]131 mmol/KUme100-312Frl [facility] HospitalComment on above:Order Comment: No: Do not add to previous drawPerformed By: #### 68265 #### [facility] [address] [facility] [place] [address], USAUrea nitrogen [Mass/Vol]27 mg/dLHigh7-25The [facility] HospitalComment on above:Order Comment: No: Do not add to previous drawPerformed By: #### 33154 #### [facility] [address] [facility] [place] [address], USACREATININE URINE RANDOMon 00-13-1626Whgvpgtjbz (U) [Mass/Vol]101.0 mg/dLNoParkview Health Bryan Hospitale [facility] HospitalComment on above:Order Comment: No: Do not add to previous drawResult Comment: There are no established reference values for random urine specimensPerformed By: #### 98369 #### [facility] [address] [place] [address], USAFLUID CELL COUNTon 76-95-6628Mxdcujykd/100 WBC (Bld)1 % NormalThe [facility] HospitalComment on above:Performed By: #### 84982 #### [facility] [address] [facility] [place] [address], USAEosinophils/100 WBC (Bld)11 %NormalThe [facility] HospitalComment on above:Performed By: #### 57294 #### [facility] [address] [place] [address], USALymphocytes/100 WBC (Bld)49 %NormalThe [facility] HospitalComment on above:Performed By: #### 66579 #### [facility] [address] [place] [address], TKWYTOOOTENIFQ34 %NormalThe [facility] HospitalComment on above:Performed By: #### 64825 #### [facility] [address] [place] [address], USAOTHER F1Diff done by cytosBerger HospitalComment on above:Performed By: #### 18496 #### [facility] [address] [place] [address], USAOTHER C9Owzucbz by Mac Rodriguez M.D.NormalThe [facility] HospitalComment on above:Result Comment: Result changed by [facility] on 07/15/2020 13:33. The previous value was Preliminary report; verified report to follow.Performed By: #### [id number] #### [facility] [address] [place] [address], [id number] RBC/[facility] Rita's HospitalComment on above:Performed By: #### 81404 #### [facility] [address] [place] [address], LZRAWCB28 %NormalThe [facility] Comment on above:Performed By: #### 72154 #### [facility] [address] [place] [address], USASOURCEThoracentesisMemorial Health SystemComment on above:Performed By: #### 09090 #### [facility] [address] [place] [address], USATOTAL FVCQJJ7BZrrrykXncMemorial Health System Comment on above:Performed By: #### 70575 #### [facility] [address] [place] [address], YCUMYS2211 WBC/uLNormalThe [facility] Comment on above:Result Comment: Some reference interval(s) and other method performance specifications have not been established for analytes on this body fluid. The test result must be integrated into the clinical context for interpretation.Performed By: #### 53880 #### [facility] [address] [place] [address], USAGLUCOSE FLUID MISCon 38-46-6532Slnbneh [Mass/Vol]326 mg/dL NormalThe [facility] HospitalComment on above:Result Comment: The reference range and other method performance specifications have not been established for this test in fluids. the test result should be integrated into the clinical context for interpretation.Performed By: #### 68173 #### [facility] [address] [place] [address], USAHEMOGLOBIN A1Con 71-38-1274Fmhvpfc [Moles/Vol]295 mmol/L NormalThe [facility] HospitalComment on above:Order Comment: Left Peural EffusionPerformed By: #### 12190 #### [facility] [address] [place] [address], RKOCaJ5k (Bld) [Mass fraction]11.9 %High4.0-6.0The [facility] HospitalComment on above:Order Comment: Left Peural Effusion Performed By: #### 46234 #### [facility] [address] [place] [address], USAHEPATITIS B SURFACE ANTIGEN QUALon 85-84-3611PJV B SURF AG QUALNon-ReactiveNormalNONREACTIVEThe [facility] HospitalComment on above:Order Comment: No: Do not add to previous drawPerformed By: #### 81532 #### [facility] [address] [place] [address], USAHEPATITIS C ANTIBODYon 90-49-6591FGAL-HCVNon-ReactiveNormal NONREACTIVEThe [facility] HospitalComment on above:Order Comment: No: Do not add to previous drawPerformed By: #### 73394 #### [facility] [address] [place] [address], USALDH BLOODon 41-42-9876MLO774 Units/IJzojbv920-917Zbp [facility] HospitalComment on above:Order Comment: Left Peural EffusionPerformed By: #### 92146 #### [facility] [address] [place] [address], SBOOZE647 Units/IBmn663-465Dhl [facility] HospitalComment on above:Order Comment: No: Do not add to previous drawPerformed By: #### 17951 #### [facility] [address] [place] [address], USALDH FLUIDon 93-37-8972LMW802 Units/LNormalThe [facility] HospitalComment on above:Result Comment: The reference range and other method performance specifications have not been established for this test in fluids. the test result should be integrated into the clinical context for interpretation.Performed By: #### 63039 #### [facility] [address] [place] [address], USALIPID PROFILEon 29-86-3931Sotvhzavazx [Mass/Vol]95 mg/dLLow 120-200The [facility] HospitalComment on above:Order Comment: No: Do not add to previous drawResult Comment: CHOLESTEROL REFERENCE RANGE: 20 YEARS AND OLDER CARDIOVASCULAR RISK Less than 200 mg/dl Low Risk 200 to 239 mg/dl Borderline Risk 240 mg/dl and greater High RiskPerformed By: #### 38145 #### [facility] [address] [place] [address], USACholesterol in HDL [Mass/Vol]36 mg/kNWjoctp26-53Olw [facility] HospitalComment on above:Order Comment: No: Do not add to previous drawResult Comment: Slight variation in normal range could be due to gender and/or age. HDL CHOLESTEROL REFERENCE RANGE: 20 years and older Cardiovascular Risk > or =60 mg/dL Desirable 40 TO 59 mg/dL Low Risk <40 mg/dL High RiskPerformed By: #### 26647 #### [facility] [address] [facility] [place] [address], USACholesterol in LDL [Mass/Vol]37 mg/dLNormal0-130The [facility] HospitalComment on above:Order Comment: No: Do not add to previous drawResult Comment: LDL IS A CALCULATION LDL IS ONLY VALID IF THE TRIG IS LESS THAN 400.Performed By: #### 15344 #### [facility] [address] [place] [address], USACholesterol.total/Cholesterol in HDL [Mass ratio]2.6 {ratio}Normal0.0-4.5The [facility] HospitalComment on above: Order Comment: No: Do not add to previous drawPerformed By: #### 80843 #### [facility] [address] [facility] [place] [address], USANON-HDL OROUMAGBABU83 mg/dLNormalThe [facility] HospitalComment on above:Order Comment: No: Do not add to previous draw Performed By: #### 12141 #### [facility] [address] [facility] [place] [address], USATriglyceride [Mass/Vol]109 mg/qKPxjyua76-089Psd [facility] HospitalComment on above:Order Comment: No: Do not add to previous drawResult Comment: TRIGLYCERIDE REFERENCE RANGE: 20 YEARS AND OLDER CARDIOVASCULAR RISK LESS THAN 150 mg/dl LOW RISK 150 TO 199 mg/dl BORDERLINE RISK 200 mg/dl AND GREATER HIGH RISKPerformed By: #### 77693 #### [facility] [address] [facility] [place] [address], USAVLDL CHOL22 mg/dLNormal0-40The [facility] HospitalComment on above:Order Comment: No: Do not add to previous drawPerformed By: #### 72728 #### [facility] [address] [place] [address], USAMAGNESIUM BLOODon 65-38-1786Tobieydka [Mass/Vol]2.1 mg/dL Normal1.9-2.7The [facility] HospitalComment on above:Order Comment: No: Do not add to previous drawPerformed By: #### 28072 #### [facility] [address] [place] [address], USAMagnesium [Mass/Vol]2.0 mg/dLNormal1.9-2.7The [facility] HospitalComment on above:Performed By: #### 46139 #### [facility] [address] [place] [address], USAPHOSPHORUS BLOODon 67-23-6759Xhxtypexp [Mass/Vol]4.1 mg/dL Normal2.5-5.0The [facility] HospitalComment on above:Order Comment: No: Do not add to previous drawPerformed By: #### 20318 #### [facility] [address] [place] [address], USAPhosphate [Mass/Vol]4.0 mg/dLNormal2.5-5.0The [facility] HospitalComment on above:Performed By: #### 39191 #### [facility] [address] [place] [address], USAPOC GLUCOSE LABon 15-82-4028Kmejucs [Mass/Vol]180 mg/dLHigh 70-100The [facility] HospitalComment on above:Performed By: #### 05582 ####[facility] [place] [address], USAGlucose [Mass/Vol]198 mg/pFEqnz60-016Ozz [facility] HospitalComment on above:Performed By: #### 11234, 91932 #### [facility] [address] [place] [address], USAGlucose [Mass/Vol]265 mg/bSFkvt14-671Hub [facility] HospitalComment on above:Performed By: #### 55483 #### [facility] [address] [facility] [place] [address], USAGlucose [Mass/Vol]305 mg/sHRlrh01-790Zfi [facility] HospitalComment on above:Performed By: #### 56564, 77841 #### [facility] [address] [address], USAGlucose [Mass/Vol]301 mg/lNYkew99-977Frq [facility] HospitalComment on above:Performed By: #### 76641 #### [facility] [address] [place] [address], USAPORTABLE CHEST 1 VIEWon 36-06-2923MEWOATGI CHEST 1 VIEW [facility] Department of Radiology [address] [place] [phone] Patient Name: RASHARD LYMAN : 1960 Sex: M Age: Race: White Pt. Location: [address] [place] [address] Patient Status: I Ordered Date: 07/14/2020 1:40:00 [...] above Electronically signed: Patricia Damon. Transcribed by: [email or web address], User Resident: Electronically Signed by: PATRICIA DAMON @ 07/14/2020 03:24 [facility] CenterComment on above:Order Comment: Evaluate for PneumothoraxPORTABLE CHEST 1 [facility]Un[facility] Department of Radiology [address] [place] [phone] Patient Name: RASHARD LYMAN : 1960 Sex: M Age: Race: White Pt. Location: [address] [place] [address] Patient Status: I Ordered Date: 07/13/2020 11:35:00 PM Completed Date: 07/14/2020 12:23 AM Requesting Provider: ESPINOZA CHAPMAN Attending Provider: SVAANNAH REYNOLDS Report Copy To: Signs & Symptoms: [...] reports Electronically signed: Valdemar Foster. Transcribed by: [email or web address], User Resident: SY MOFFETT Electronically Signed by: VALDEMAR FOSTER @ 07/14/2020 06:31 AM I personally read this/these film(s) with this [facility] InstituteComment on above:Order Comment: evaluate for Effusion PROTEIN ELECT Truong 45-52-3290Ofelsts [Mass/Vol]6.0 g/dLNormal6.0-8.3The [facility] HospitalComment on above:Performed By: #### 91834 #### [facility] [address] [place] [address], USAPROTEIN ELECTNoEast Liverpool City Hospital Comment on above:Result Comment: Decreased albumin and elevated alpha 1 and 2 suggests acute inflammation.Performed By: #### 74354 #### [facility] [address] [place] [address], USAPROTEIN ELECT URon [id number] ELECTUrine protein electrophoresis suggests a nonselective nephropathy.NormalThe [facility] HospitalComment on above:Performed By: #### 56467 #### [facility] [address] [place] [address], USAPROTEIN TOTAL BLOODon 90-25-8472Ktzhlnd [Mass/Vol]6.7 g/dL Normal6.0-8.3The [facility] HospitalComment on above:Order Comment: Left Peural EffusionPerformed By: #### 18861 #### [facility] [address] [place] [address], USAPROTHROMBIN TIMEon 28-35-8744WZO Coag (PPP) [Relative time] 1.12 {INR}Normal0.91-1.16The [facility] HospitalComment on above:Order Comment: No: Do not add to previous drawResult Comment: [facility] RECOMMENDED INR FOR WARFARIN THERAPY ------- CONDITION INR PROPHYLAXIS OF VENOUS THROMBOSIS 2-3 (HIGH-RISK SURGERY) TREATMENT OF VENOUS THROMBOSIS 2-3 TREATMENT OF PULMONARY EMBOLISM 2-3 PREVENTION OF SYSTEMIC EMBOLISM: 2-3 ACUTE MYOCARDIAL INFARCTION TISSUE HEART VALVES VALVULAR HEART DISEASE ATRIAL FIBRILLATION RECURRENT SYSTEMIC EMBOLISM MECHANICAL HEART VALVE 2.5-3.5 FROM: ORAL ANTICOAGULANTS. MECHANISM OF ACTION, CLINICAL EFFECTIVENESS, AND OPTIMAL THERAPEUTIC RANGE. CHEST 1995;108:231S-246S.Performed By: #### 88133, 79859 #### [facility] [address] [facility] [place] [address], USAPT Coag (PPP) [Time]14.4 rSeqpki52.3-14.8The [facility] HospitalComment on above:Order Comment: No: Do not add to previous drawResult Comment: ALL RESULTS MUST BE INTERPRETED WITH RESPECT TO BLOOD DRAWING ARTIFACT OR DILUTION ERROR OF ANTICOAGULANT AT THE TIME OF SAMPLING.Performed By: #### 87114, 71808 #### [facility] [address] [facility] [place] [address], USASEDIMENTATION RATEon 24-66-0905LYS RATE32 mm/hrHigh0-10The [facility] HospitalComment on above:Performed By: #### 69332 #### [facility] [address] [place] [address], USASODIUM URINE RANDOMon 33-74-3135Yktrnm (U) [Moles/Vol]59 mmol/LNormalThe [facility] HospitalComment on above:Order Comment: No: Do not add to previous drawResult Comment: There are no established reference values for random urine specimensPerformed By: #### 38031 #### [facility] [address] [place] [address], USAT PROT FLUIDon 67-17-6106Nncknxe [Mass/Vol]3.6 g/dLNormal The [facility] HospitalComment on above:Result Comment: The reference range and other method performance specifications have not been established for this test in fluids. the test result should be integrated into the clinical context for interpretation.Performed By: #### 93131 #### [facility] [address] [place] [address], USAT PROT UR Loretta 07-14-2020U TOTAL VMCLAFD835.0 mg/dLNormal The [facility] HospitalComment on above:Order Comment: No: Do not add to previous drawResult Comment: There are no established reference values for random urine specimensPerformed By: #### 07691 #### [facility] [address] [place] [address], USAPerformed By: #### 14458 #### [facility] [address] [facility] [place] [place] [address], USATROPONIN-Ion [id number] I.cardiac [Mass/Vol]0.09 ng/mLHigh0.00-0.04The [facility] HospitalComment on above:Order Comment: No: Do not add to previous drawResult Comment: REFERENCE RANGES: 0.00 - 0.04 ng/ml NORMAL 0.05 - 0.50 ng/ml INDETERMINATE > 0.50 ng/ml CONSISTENT WITH AN M.I.Performed By: #### 14466 #### [facility] [address] [place] [address], USATroponin I.cardiac [Mass/Vol]0.07 ng/mLHigh0.00-0.04The [facility] HospitalComment on above:Order Comment: No: Do not add to previous drawResult Comment: REFERENCE RANGES: 0.00 - 0.04 ng/ml NORMAL 0.05 - 0.50 ng/ml INDETERMINATE > 0.50 ng/ml CONSISTENT WITH AN M.I.Performed By: #### 69763 #### [facility] [address] [facility] [place] [address], YWYORH7rb 51-60-9000LUB 3RD GENERATION3.28 uIU/mLNormal 0.34-5.60The [facility] HospitalComment on above:Order Comment: No: Do not add to previous drawPerformed By: #### 60533 #### [facility] [address] [facility] [place] [place] [address], USAURIC ACID BLOODon 01-40-9456Cegnr [Mass/Vol]7.1 mg/dLNormal 4.4-7.6The [facility] HospitalComment on above:Performed By: #### 95728 #### [facility] [address] [facility] [place] [address], USAURINALYSIS REFLEXon 96-53-3916Svuwfjlpot (U)SL CLOUDY AbnormalCLEARThe [facility] HospitalComment on above:Order Comment: Left Peural EffusionPerformed By: #### 31832 #### [facility] [address] [facility] [place] [address], USABilirubin Ql (U)NegativeNormalNEGATIVEThe [facility] HospitalComment on above:Order Comment: Left Peural Effusion Performed By: #### 97053 #### [facility] [address] [place] [address], USAColor (U)YELLOWNormalYELLOWThe [facility] HospitalComment on above:Order Comment: Left Peural EffusionPerformed By: #### 72770 #### [facility] [address] [place] [address], USAEPISFEWNormalFEW,OCC,NONE SEENThe [facility] HospitalComment on above:Order Comment: Left Peural EffusionPerformed By: #### 98293 #### [facility] [address] [place] [address], USAGlucose Ql (U)>=500AbnormalNEGATIVEThe [facility] HospitalComment on above:Order Comment: Left Peural EffusionPerformed By: #### 51579 #### [facility] [address] [place] [address], USAHemoglobin Ql (U)TRACEAbnormalNEGATIVEThe Western Reserve HospitalComment on above:Order Comment: Left Peural Effusion Performed By: #### [id number] #### [facility] [address] [facility] [place] [address], USAKETONETRACEAbnormalNEGATIVEThe Western Reserve HospitalComment on above:Order Comment: Left Peural EffusionPerformed By: #### [id number] #### [facility] [address] [place] [address], USALEUK ESTERNegativeNormalNEGATIVEThe Western Reserve HospitalComment on above:Order Comment: Left Peural EffusionPerformed By: #### [id number] #### [facility] [address] [place] [address], USAMUCUS THREADSOCCAbnormalNONE SEENThe Western [facility] HospitalComment on above:Order Comment: Left Peural EffusionPerformed By: #### [id number] #### [facility] [address] [place] [address], USANitrite Ql (U)NegativeNormalNEGATIVEThe Western [facility] HospitalComment on above:Order Comment: Left Peural Effusion Performed By: #### [id number] #### [facility] [address] [place] [address], USApH (U)6.0 [pH]Normal5.0-8.0The [facility] Reserve HospitalComment on above:Order Comment: Left Peural EffusionPerformed By: #### [id number] #### [facility] [address] [place] [address], USAProtein Ql (U)>=500AbnormalNEGATIVEThe Western Reserve HospitalComment on above:Order Comment: Left Peural EffusionPerformed By: #### [id number] #### [facility] [address] [facility] [place] [address], USARBC0-2AbnormalNONE SEENThe [facility] HospitalComment on above:Order Comment: Left Peural EffusionPerformed By: #### [id number] #### [facility] [address] [facility] [place] [address], USASPEC GRAV1.731Pveoby5.015-1.020The [facility] HospitalComment on above:Order Comment: Left Peural EffusionPerformed By: #### [id number] #### [facility] [address] [facility] [place] [address], USAWBC UA3-5AbnormalNONE SEENThe [facility] HospitalComment on above:Order Comment: Left Peural EffusionPerformed By: #### [id number] #### [facility] [address] [place] [place] [address], [facility] Vital Signs Date TimeVital SignValuePerforming XubodwtarUxgwvyrm33-28-0258 12:54-0400Body mass index (BMI) [Ratio]27.9 kg/n8Vzczzt Newlans DO Work Phone: [facility] Oifofm26-23-9134 12:54-0400Body yuitwkinizk06.39 [degF]Colton Newlans DO Work Phone: [facility] Mltvwi57-51-5207 12:54-0400Body jhevsm385.96 kgDennis Furlong DO Work Phone: [facility] HospitalWannyi10-21-2025 12:54-0400Diastolic blood mm[Hg]Colton Kiranlong DO Work Phone: [facility] Tgfnqv19-05-7636 12:54-0400Heart rate 76 /minDennis Furlong DO Work Phone: [facility] Brgcqj12-28-8084 12:54-0400 Respiratory rate18 /minDennis Furlong DO Work Phone: [facility] HospitalWannyi10-21-2025 12:54-1827BwH7% (BldA) [Mass fraction]97 %Colton Kiranlong DO Work Phone: [facility]10-21-2025 12:54-0400Systolic blood cetkwuai30 mm[Hg]Colton Kiranlong DO Work Phone: [facility] Tkrdrs48-18-5531 22:49-0400Body mass index (BMI) [Ratio]29.27 kg/n9LslhedColton Kiranlong DO Work Phone: [facility]10-14-2025 22:49-0400Body vreogeejgqy33.39 [degF]Colton Kiranlong DO Work Phone: [facility]10-14-2025 22:49-0400Body yftsxd600.09 kgDendain Kiranlong DO Work Phone: [facility] Fzgwlv83-05-1733 22:49-0400Diastolic blood eqlucrii03 mm[Hg]Colton Kiranlong DO Work Phone: [facility]10-14-2025 22:49-0400Heart rate 99 /Nannetteis Furlong DO Work Phone: [facility] Eijshl66-90-9727 22:49-0400 Respiratory rate18 /minDennis Furlong DO Work Phone: [facility] Avsxie24-10-2211 22:49-3670BnT9% (BldA) [Mass fraction]96 %Colton Kiranlong DO Work Phone: [phone] Njvmnn62-45-9786 22:49-0400Systolic blood lowdjygd461 mm[Hg]Colton Furlong DO Work Phone: [facility] [employer] Rckemf55-24-9082 12:12-0400Body mass index (BMI) [Ratio]27.85 kg/z2Qiildw Qianalong DO Work Phone: [facility] [employer] Cdczip51-07-4476 12:12-0400Body lzmrqmndynr20.9 [degF]Colton Kiranlong DO Work Phone: [facility] [employer] Wkwvmn84-20-3024 12:12-0400Body .78 kgDendain Kiranlong DO Work Phone: [phone] [employer] Ojvyey22-74-6051 12:12-0400Diastolic blood yhbosxfa22 mm[Hg]Colton Kiranlong DO Work Phone: [facility] [employer] Nblhtz35-24-7695 12:12-0400Heart rate 92 /Lazaro Kiranlong DO Work Phone: [facility] [employer] Oinqux42-30-5913 12:12-0400 Respiratory rate18 /Nannetteis Qianalong DO Work Phone: [phone] Cytplc87-92-6711 12:12-5153ErP0% (BldA) [Mass fraction]99 %Colton Kiranlong DO Work Phone: [facility] [employer] Gzhbmm07-68-2205 12:12-0400Systolic blood kjfunqhr02 mm[Hg]Colton Qianalong DO Work Phone: [facility] [employer] Kvbzxf63-27-7423 23:08-0400Body mass index (BMI) [Ratio]28.81 kg/l8Yrqgdb Furlong DO Work Phone: [phone] [employer] Hkqjjf32-21-6216 23:08-0400Body uqdkpmzibkz22.81 [degF]Colton Kiranlong DO Work Phone: [facility]09-30-2025 23:08-0400Body ixvxrd276.37 kgDennis Qianalong DO Work Phone: [facility]09-30-2025 23:08-0400Diastolic blood wlyquogt36 mm[Hg]Colton Kiranlong DO Work Phone: [facility]09-30-2025 23:08-0400Heart rate 76 /Lazaro Kiranlong DO Work Phone: [facility]09-30-2025 23:08-0400 Respiratory rate18 /Lazaro Kiranlong DO Work Phone: [facility]09-30-2025 23:08-7912EjT4% (BldA) [Mass fraction]97 %Colton Kiranlong DO Work Phone: [facility]09-30-2025 23:08-0400Systolic blood hmadaxdb719 mm[Hg]Colton Kiranlong DO Work Phone: [facility]09-23-2025 21:28-0400Body whwpju480 cmColton Kiranlong DO Work Phone: [facility]09-23-2025 21:28-0400Body mass index (BMI) [Ratio]29.9 kg/q8Dqfenr Furlong DO Work Phone: [facility]09-23-2025 21:28-0400Body gaegjzyinwv98.1 [degF]Colton Kiranlong DO Work Phone: [facility]09-23-2025 21:28-0400Body atdmfd362.4 kgDendain Kiranlong DO Work Phone: [facility]09-23-2025 21:28-0400Diastolic blood drurdqjp31 mm[Hg]Colton Furlong DO Work Phone: [facility] [employer] Kxetyb47-25-4825 21:28-0400Heart rate 77 /minDennis Furlong DO Work Phone: [facility]09-23-2025 21:28-0400 Respiratory rate18 /minDennis Furlong DO Work Phone: [facility]09-23-2025 21:28-8171BtZ1% (BldA) [Mass fraction]99 %Colton Furlong DO Work Phone: [facility]09-23-2025 21:28-0400Systolic blood jfupflxt546 mm[Hg]Colton Furlong DO Work Phone: [facility]09-19-2025 13:22-0400Diastolic blood tolyumkc24 mm[Hg]Chino Elliott DPM Work Phone: 1(083)355-[address] [place], [place] 4887609-19-2025 13:22-0400 Heart rate80 /minter [facility] DPM Work Phone: [phone]09-19-2025 13:22-0400 Respiratory rate20 /minPeter [facility] DPM Work Phone: 1(431)008-[address] [place], [place] 4887609-19-2025 13:22-0400 SaO2% (BldA) [Mass fraction]100 %Chino Elliott DPM Work Phone: 1(878)635-[address] [place], [place] 4887609-19-2025 13:22-0400 Systolic blood egcuvjmk30 mm[Hg]Chino Elliott DPM Work Phone: 1(393)597-[address] [place], [place] 4887609-19-2025 09:10-0400 Body qsyvtqqregh35.8 [degF]Chino Elliott DPM Work Phone: 1(923)025-[address] [place], [place] 4887609-19-2025 05:33-0400 Body bwagpx238.9 kgPetracy [facility]harish DPM Work Phone: 1(732)845-[address] [place], [place] 4887609-18-2025 13:33-0400 Body raidxd152.04 cmPeter Highlander DPM Work Phone: 1(939)[address] [place], [place] 9533709-03-2025 14:32-0400 Body odnmximmrov84.3 [degF]Chino Elliott DPM Work Phone: 1(881)[address] [place], [place] 9533709-03-2025 14:32-0400 Diastolic blood jevnzxlp44 mm[Hg]Chino Elliott DPM Work Phone: 1(363)[address] [place], [place] 9533709-03-2025 14:32-0400 Heart rate80 /minPeter Highlander DPM Work Phone: 1(480)[address] [place], [place] 9533709-03-2025 14:32-0400 Respiratory rate18 /minPeter Highlander DPM Work Phone: 1(316)[address] [place], [place] 9533709-03-2025 14:32-0400 SaO2% (BldA) [Mass fraction]100 %Chino Elliott DPM Work Phone: 1(537)[address] [place], [place] 9533709-03-2025 14:32-0400 Systolic blood fiqyxcvy128 mm[Hg]Chino Elliott DPM Work Phone: 1(334)[address] [place], [place] 9533709-03-2025 06:00-0400 Body .2 kgPeter Highlander DPM Work Phone: 1(882)[address] [place], [place] 9533708-28-2025 12:55-0400 Body gxtjnu119.04 cmPeter Highlander DPM Work Phone: 1(123)[address] [place], [place] 9533708-28-2025 10:07-0400 Inhaled oxygen flow rate7 L/minPeter Highlander DPM Work Phone: 1(448)[address] [place], [place] 9533710-31-2024 11:25-0400 Body taguyk960 cmNima Lee MD Work Phone: [facility]10-31-2024 11:25-0400Body mass index (BMI) [Ratio]28 kg/c3UumlgdvNima Lee MD Work Phone: [facility]10-31-2024 11:25-0400Body dusywldpnsb52.11 [degF]Nima Lee MD Work Phone: 1(038)[facility] Zeqfxv20-51-1449 11:25-0400Body tgzohm037.33 kgNima Lee MD Work Phone: 1(320)[facility] Fxvpgm17-42-2948 11:25-040Diastolic blood vytgmckk27 mm[Hg]Nima Lee MD Work Phone: 1(929)[facility] Xpzpsc88-09-5405 11:25040Heart rate 78 /minNima Lee MD Work Phone: 1(304)[facility] Rgcwjp85-90-7463 11:8403OoO3% (BldA) [Mass fraction]98 %Nima Lee MD Work Phone: 1(207)[facility] Pxlelu69-47-3398 11:25-040Systolic blood jcezajel074 mm[Hg]Nima Lee MD Work Phone: 1(934)[facility] Bagqai51-01-4942 15:40-0500Body .04 cmEtim Pollack Other [employer] [place] [employer] Other 11-23-2021 15:40-0500Body mass index (BMI) [Ratio] 39.02 kg/h7GvyloKike Pollack Other [employer] [facility] [employer] Other 11-23-2021 15:40-0500Body rqezzgoajbq86.8 [degF]Kike Pollack Other [employer] [facility] [employer] Other 11-23-2021 15:40-0500Body osqfed297.42 kgKike Pollack Other [employer] [facility] [employer] Other 11-23-2021 15:40-0500Diastolic blood eaaasvgf23 mm[Hg] Kike Pollack Other [employer] [facility] [employer] Other 11-23-2021 15:40-0500Respiratory rate18 /Sherrell Pollack Other [employer] Other 11-23-2021 15:40-7060CmH3% (BldA) [Mass fraction]96 % Kike Pollack Other [employer] Other 11-23-2021 15:40-0500Systolic blood mm[Hg] Kike Pollack Other [employer] Other 04-29-2021 12:24-0400Heart rate82 /minCharles Valone Work Phone: [phone])858-78[facility]04-29-2021 12:24-0400 Respiratory rate20 /minCharles Valone Work Phone: 2(234)303-[address] [place], [place] 1911804-29-2021 11:17-0400 Body pogwbttnkkj62.7 [degF]Jose Valone Work Phone: 7(923)522-[address] [place], [place] 1911804-29-2021 11:17-0400 Diastolic blood hxsinsvj59 mm[Hg]Jose Valone Work Phone: 8(008)339-[address] [place], [place] 1911804-29-2021 11:17-0400 SaO2% (BldA) [Mass fraction]96 %Jose Valone Work Phone: 2([phone])562-47[facility]04-29-2021 11:17-0400 Systolic blood fyxblzog017 mm[Hg]Jose Valone Work Phone: 2([phone])736-50[facility]04-29-2021 06:00-0400 Body lmmyhc151.5 kgCharles Valone Work Phone: [facility]04-23-2021 14:17-0400 Body fbelht174.04 cmCharles Valone Work Phone: 1(419)[address]04-22-2021 21:22-0400 Body .04 cmCharmeenu Juarez Work Phone: 1(268)632-[address] [place], [place] 1911804-22-2021 21:22-0400 Body mass index (BMI) [Ratio]43.8 kg/a0Dsxbmna Valone Work Phone: 1(676)904-[address] [place] [address]-22-2021 21:22-0400 Body .6 [degF]Jose Juarez Work Phone: 1(871)540-[address] [place] [address]-22-2021 21:22-0400 Body .3 kgCharmeenu Valnikolay Work Phone: 1(499)412-[address] [place] [address]-22-2021 21:22-0400 Diastolic blood lgcmoefx28 mm[Hg]Jose Juarez Work Phone: 1(090)482-[address] [place] [address]-22-2021 21:22-0400 Heart hbbt431 /minJenniferrmeenu Valone Work Phone: 1(251)378-[address] [place] [address]-22-2021 21:22-0400 Respiratory rate18 /minJenniferrmeenu Valnikolay Work Phone: 1(179)514-[address] [place] [address]-22-2021 21:22-0400 SaO2% (BldA) [Mass fraction]94 %Jose Juarez Work Phone: 1(534)480-[address] [place] [address]-22-2021 21:22-0400 Systolic blood zfekoqsu978 mm[Hg]Jose Juarez Work Phone: 1(267)380-[address] [place] [address] Encounters Encounter DateEncounter TypeCare ProviderFacilityStart: 02-17-2025 End: 01-51-7912ufztbcipduIthiqg G Furlong DO Work Phone: [facility] - Family MedicineComment on above:Type 2 diabetes mellitus with diabetic neuropathy, with long-term current use of insulin ([facility]) (Primary Dx); End stage renal disease ([facility]); Hemodialysis-associated hypotension; Acquired absence of left foot (CMS-HCC); Acquired absence of right foot (CMS-HCC)Start: 02-16-2025 End: 35-47-7528xtovbhcfodVfkrtl G Furlong DO Work Phone: [facility] Internal Medicine - Family MedicineComment on above:Type 2 diabetes mellitus with diabetic neuropathy, with long-term current use of insulin ([facility]) (Primary Dx); End stage renal disease ([facility]); Dependence on renal dialysis; Hemodialysis-associated hypotensionStart: 02-02-2025 End: 58-68-4093xgfgwgcjveWaqafv G Furlong DO Work Phone: [facility] Internal Medicine - Family MedicineComment on above:Type 2 diabetes mellitus with diabetic neuropathy, with long-term current use of insulin ([facility]) (Primary Dx); Unspecified trochanteric fracture of right femur, subsequent encounter for closed fracture with routine healing; Nausea; Acquired absence of left foot (CMS-HCC); Acquired absence of right foot ([facility]); End stage renal disease ([facility])Start: 02-01-2025 End: 61-85-5819sybomzstfwZgfdwevRosibel Juarez JR Work Phone: [facility] Work Phone: Start: 02-01-2025 End: 40-08-7654Scsmoxt encounter procedureWilfrido Montez DO-[facility] [place] Work Phone: Start: 01-26-2025 End: 15-75-5889yiieslkczjPmbihr G Furlong DO Work Phone: [facility] Internal Medicine - Family MedicineComment on above:Unspecified trochanteric fracture of right femur, subsequent encounter for closed fracture with routine healing (Primary Dx); Type 2 diabetes mellitus with diabetic neuropathy, with long-term current use of insulin ([facility]); End stage renal disease ([facility]); Acquired absence of right foot (CMS-HCC); Acquired absence of left foot (CMS-HCC)Start: 01-19-2025 End: 89-82-0028wborjkygyqOqtvon G Furlong DO Work Phone: [facility] Internal Medicine - Family MedicineComment on above:Unspecified trochanteric fracture of right femur, subsequent encounter for closed fracture with routine healing (Primary Dx); Chronic obstructive pulmonary disease, unspecified COPD type ([facility] End stage renal disease ([facility]); Dependence on renal dialysis; Peripheral vascular disease, unspecified; Acquired absence of left foot ([facility]); Acquired absence of right foot ([facility]); Type 2 diabetes mellitus with diabetic neuropathy, with long-term current use of insulin ([facility]); Hyperlipidemia, unspecified hyperlipidemia type; Gastroesophageal reflux disease, unspecified whether esophagitis present; Psoriasis, unspecifiedStart: 97-84-5994Vah-patient / Non-visitClayton Cardenas MD- [facility] Work Phone: Start: 35-56-0621Rru-patient / Non-visitAleta Jensen APRN-[facility] Work Phone: Start: 35-48-6675Tiu-patient / Non-visitClayton Cardenas MD-[facility] Work Phone: Start: 12-30-2024 End: 54-10-4474Cktskcywvs and management of inpatientCharles L Valone [facility]: 16-53-5132Dsp-patient / Non-visitRaimundo Mcclure MD-[facility] Work Phone: Start: 26-59-3816Hzaywux encounter statusChino Elliott DPM Work Phone: [facility]: 22-38-5623Dxh- patient / Non-visitAri Batista MD-[facility] Work Phone: Start: 63-48-0667Wiomito encounter statusAri Batista MDThe [facility]Health Systemtart: 12-06-4574Yncnajdfo for preprocedural cardiovascular examinationPhillip Aiken [facility] Phys[facility] GroupStart: 12-23-2024 End: 80-45-6427Fnfzjuwbuq and management of inpatientAndrei Celia Facility:[facility]: 10-26-2024 End: 96-29-1155qinqzsntehBmsmxOhioHealth [facility] Work Phone: Start: 10-26-2024 End: 06-50-6817Nswfzuuk ReferredPenn Highlands Healthcare DPM MS-LAB [facility] HospStart: 08-28-2024 End: 18-85-5814wublegvsptIkupuOhioHealth Southeastern [facility] Center [facility]tr Work Phone: Start: 08-28-2024 End: 37-57-7520Psnjmnvc ReferredPenn Highlands Healthcare DPM Work Phone: [facility] HospStart: 02-27-2024 End: 83-53-2126Ejmbpe outpatient visit 25 minutesMohamed Malik Lee MD Work Phone: [facility] Vascular SurgeryComment on above:Critical limb ischemia of left lower extremity with gangrene ([facility]) (Primary Dx)Start: 02-17-2024 End: 71-05-7494mrnoihabujNODHQDW L VALONE JRProMedica Weston HospitalStart: 01-20-2024 End: 63-38-9510bnfqhhjqegLRHREOI L VALONE JRProMedica Weston HospitalStart: 12-16-2023 End: 04-05-4106fvztozppnqZOUWALL L VALONE JRProMedica Weston HospitalStart: 11-19-2023 End: 66-47-4845cvwfrlirxmCIUNQMA L VALONE JRProMedica Aztec HospitalStart: 11-19-2023 End: 49-20-4150Kfqgpvpwd Result EncounterAjay Archer MD Work Phone: [facility] External Department UnsolicitedStart: 11-19-2023 End: 01-30-8342Eyugpvrsh Result EncounterAjay Archer MD Work Phone: [facility] External Department UnsolicitedStart: 10-23-2023 End: 30-32-9965hfiuxujhxyLDEIXPH L VALONE JRProMediLiberty Hospital HospitalStart: 09-03-2023 End: 78-06-9552vckvhaarumYWSTHQQ Anmol JUAREZ JRProMedica Weston HospitalStart: 07-31-2023 End: 42-45-2354rppozfihdlVLNCOCT Anmol JUAREZ JRProMediLiberty Hospital HospitalStart: 07-02-2023 End: 12-57-1482apeapyzhgqSAFKBDW Anmol JUAREZ JRProMercy Health West Hospitalca Weston HospitalStart: 06-04-2023 End: 00-37-6997hxfmwzarlqRTMLQOU Anmol JUAREZ JRProMedica Weston HospitalStart: 05-31-2023 End: 39-98-5754fxnehlcgjhEBBMZ RALOFSKYMercy Clinton HospitalStart: 05-06-2023 End: 66-20-5597pnyxspcdyuVVVIOLW Anmol JUAREZ [facility] HospitalStart: 04-19-2023 End: 15-98-5429ybaubcobbsTQLQG D [facility] HospitalStart: 02-27-2023 End: 36-74-8842kcdsfquxuoNYGOL D [facility] HospitalStart: 09-11-2022 End: 57-06-2604iejujryapqTXMWQ D [facility]OM[facility]OCFacility:J2Gwznc: 08-28-2022 End: 23-79-0968fyirmcqbzwDJTKX D [facility]OMOWOCFacility:N8Iukwg: 08-24-2022 End: 60-15-4674udobzlcaeuLZ CHARLES VALONEFacility:C0Btnjm: 08-20-2022 End: 54-96-4560hsljhsfxlrRZOctavio JUAREZFacility:F3Hygpn: 19-76-7363Rkjjzjpbl for preprocedural cardiovascular examinationPETER D [facility] HospitalStart: 66-59-0750Gqyfelwnw for preprocedural laboratory examinationPETER D [facility] HospitalStart: 69-33-7298Rdaronnzd for preprocedural respiratory examinationPETER D [facility] HospitalStart: 08-15-2022 End: 41-78-2453hcyqihszbfZD CHARLES VALONEFacility:J3Petkg: 08-15-2022 End: 87-94-4440Hbhmnngvq for preprocedural laboratory examinationDR JOSE VALONEFacility:B5Vataz: 07-31-2022 End: 59-44-2938amiwicuuajYE JOSE VALONEFacility:Y4Dycnw: 07-13-2022 End: 24-47-1647dzsptpfuxyLA JOSE VALONEFacility:F2Dukoh: 06-21-2022 End: 19-55-6854xuqvrraodyRF JOSE VALONEFacility:L9Mvtia: 31-88-3619kjkmruzegx DR CARLOS EDUARDO SU .Facility:T8Tvztu: 06-06-2022 End: 39-47-8345iwlovrokmrCQ OJSE VALONEFacility:F9Umbwh: 05-28-2022 End: 28-86-3764agiklmzinhBU JOSE VALONEFacility:D2Hleby: 05-07-2022 End: 86-68-4852urjjfxizxfNN JOSE VALONEFacility:R7Jsqqk: 04-09-2022 End: 65-85-3209etkkgantncHT JOSE VALONEFacility:B9Rawrz: 03-26-2022 End: 25-48-5870ryfudjvwkkXT JOSE VALONEFacility:N5Ckojc: 03-13-2022 End: 39-24-4572cfwylbwqpeRV JOSE VALONEFacility:Z9Yrepv: 03-02-2022 End: 97-67-2666civqqryzmeWV JOSE VALONEFacility:D9Ccqnt: 03-01-2022 End: 64-67-2409hpwqrgkwwmGZ CARLOS EDUARDO S NIMESH .Facility:R7Eembr: 02-23-2022 End: 90-69-4162xozjmffhtbSM JOSE VALONEFacility:E7Sorhh: 02-16-2022 End: 22-48-6414obrotwwylhUL JOSE VALONEFacility:T3Easeh: 02-09-2022 End: 49-82-6691uhsxyqzoxwVN JOSE VALONEFacility:S3Gsdcp: 02-02-2022 End: 89-98-6024gsbshiowxqGTYHV D HIGHLANDERFacility:S7Kktxj: 01-26-2022 End: 67-26-2902grauppjkczOWAKW D HIGHLANDERFacility:B6Vrvpt: 01-18-2022 End: 13-02-4990vpdgorbqicLRICF D HIGHLANDERFacility:H0Ggcto: 01-15-2022 End: 79-37-4192kyzlzwsiggIUDAU D HIGHLANDERFacility:G9Bpodi: 01-12-2022 End: 19-17-0827judshiqawcZZCAK D HIGHLANDERFacility:D2Jhiwj: 01-10-2022 End: 57-84-6319nvwynkheiwITEFI D HIGHLANDERFacility:R9Dauwm: 01-02-2022 End: 79-37-3817tifwsfngzmJGRGM D HIGHLANDERFacility:P8Lpqzx: 12-25-2021 End: 37-39-5498elpaifpbtwMHUZP D HIGHLANDERFacility:R6Zyzdc: 12-21-2021 End: 16-39-6992yhnhvxgvkyMHELNX H FAWWADFacility:Q8Ckosx: 12-18-2021 End: 59-76-2665huewdqvoauUXHMZ D HIGHLANDERFacility:G6Wznfi: 12-15-2021 End: 25-23-0363ztmehmtpxeAHPXZ D HIGHLANDERFacility:Z4Zylff: 12-11-2021 End: 85-22-7488oiyzprhedrMQRPV D HIGHLANDERFacility:B2Bdqai: 11-30-2021 End: 51-55-1243anmocgpwyfJG CARLOS EDUARDO S SU .Facility:R4Pkxig: 11-22-2021 End: 43-60-5150akgifduuxpVV CARLOS EDUARDO S SU .Facility:G8Vwipl: 11-21-2021 End: 55-52-9964viwyhqyawzJPNCS D HIGHLANDERFacility:F8Woefs: 11-14-2021 ambulatoryDR CARLOS EDUARDO S SU .Facility:F1Fxhbo: 11-13-2021 End: 15-76-0000avltwgnzlcJOZKN D HIGHLANDERFacility:X2Gicfl: 11-07-2021 End: 00-95-6245osjysmpvdqMLMCD D HIGHLANDERFacility:I5Iuvou: 10-31-2021 End: 61-43-1095vxeqyspnfaBYMUQ D HIGHLANDERFacility:J8Djtud: 10-24-2021 End: 29-92-9896nfqavoilmqGFLWK D HIGHLANDERFacility:M7Urzic: 10-17-2021 End: 11-61-0120aqhfilyarkKFUJY D HIGHLANDERFacility:J6Kdvld: 10-09-2021 End: 30-05-4093xbgfgzichdWIVLP D HIGHLANDERFacility:W4Arqzp: 03-21-2021 End: 78-74-6275ovhiecsgvlRmbhz Elashi Other [place] [employer] Other Start: 27-27-8571Sittoh outpatient visit 25 minutes Essmani PollackFPG NephrologyStart: 10-20-2020 End: 37-87-6211jykxlzwudqVOMBSYI PROVIDERFacility:METROHealthStart: 09-28-2020 End: 83-47-4697Kncglej encounter procedureCharles Valone Work Phone: [phone]-Ngqbmhpgppv TherapyStart: 09-06-2020 End: 61-67-7397Duftign encounter procedureCharles Valone Work Phone: [phone]-QoayanadixmogreumiQlhaa: 08-18-2020 End: 75-18-2282Etyymghffl and management of inpatientCharles Valone Work Phone: [phone] [place] ProgressiveStart: 07-13-2020 End: 20-92-8440Xciyzbsclo and management of inpatientSARMED MANSURFacility:[facility] Procedures DateProcedureProcedure DetailPerforming ClinicianStart: 52-05-0354Ckrrjucs screenPeter HighlanderComment on above:Result Comment: PERFORMED BY: [facility] [address] [place] [address] PATHOLOGIST BULL CHAIN OPERATOR CARLOS BIRMINGHAM M.D.Start: 22-84-9682IN VENOUS DOPPLER LE [facility] Charis SIGALA Work Phone: Start: 54-47-0157Ypcenadhnhfg [Mass/volume] in Urine by Test stripNima Lee MD Work Phone: [phone]: 51-65-2288CN thoracic spine wo conCharles Valnikolay Work Phone: Start: 65-38-5185YT abdomen pelvis wo conCdevendra CanalesYour Style Unzipped Work Phone: Start: 39-85-7057EF chest wo conCdevendra CanalesYour Style Unzipped Work Phone: Start: 50-94-9019Kdwsttmxizmdnil of bilateral kidneys Jose CanalesYour Style Unz[employer] Work Phone: Start: 08-19-2020 End: 47-05-1449Exxxpro microbial cultureCharmeenu CanalesYour Style Unzipped Work Phone: Start: 03-56-5795Edcnhpjqmthcs of transfusion reaction Jose CanalesYour Style [employer] Work Phone: Start: 24-10-1557Dqhbi chest X-rayCharmeenu CanalesYour Style Unzipped Work Phone: Start: 74-53-7069Uzxru culture for bacteria, including anaerobic screenCharmeenu CanalesYour Style Unzipped Work Phone: Start: 79-48-0859Hkhfrzunqfe Panel (PCR)Jose CanalesYour Style Unzipped Work Phone: Start: 95-93-6359HQMCDEYA OF L PLEURAL CAV WITH DRAIN DEV, PERC ENDO APPROACHMOHAMED OMBALLIStart: 54-90-5046GIAVWYTL OF LEFT PLEURA, PERC ENDO APPROACH, DIAGNMOHAMED OMBALLIStart: 49-24-6505ZZWGEEXVB OF OTH THERAP SUBST INTO RESP TRACT, VIA OPENINGMOHAMED OMBALLIStart: 62-82-4584VJNFZOM LEFT PLEURA, PERCUTANEOUS ENDOSCOPIC APPROACHMOHAMED OMBALLIStart: 79-75-9973FWHAQTML OF LEFT PLEURAL CAVITY, PERC APPROACH, DIAGNMOHAMED OMBALLIStart: 07-15-2020 DRAINAGE OF LEFT PLEURAL CAVITY, PERCUTANEOUS APPROACHMOHAMED OMBALLIStart: 84-27-9472WZYHUBMX OF LEFT PLEURAL CAVITY, PERCUTANEOUS APPROACHMOHAMED OMBALLI Start: 51-00-6314HNSIIOFJOSZMORH OF RIGHT AND LEFT HEART, MARY [facility] [place] Plan of Treatment DateCare ActivityDetailAuthorStart: 06-73-9399UMcL,Tdap and Td Vaccines (2 - Td or Tdap)DTaP,Tdap and Td Vaccines (2 - Td or Tdap)[facility] SystemStart: 21-98-8737Fvseh BMI ScreeningAdult BMI ScreeningLima City Hospital SystemStart: 22-93-3039Ukoeh BMI ScreeningAdult BMI ScreeningProCincinnati Va Medical Center SystemStart: 09-74-4891Texvr BMI ScreeningAdult BMI ScreeningProCincinnati Va Medical Center SystemStart: 59-09-0306Xrlcn BMI ScreeningAdult BMI ScreeningProCincinnati Va Medical Center SystemStart: 63-51-8449Utqtvio ScreeningTobacco ScreeningProCincinnati Va Medical Center SystemStart: 34-92-7801Jduwetocp aortic aneurysm screeningAbdominal Aortic Aneurysm (AAA) ScreenProCincinnati Va Medical Center SystemStart: 89-14-7747Ejjp Risk ScreeningFall Risk ScreeningLima City Hospital SystemStart: 01-15-2025 End: 10-40-5998CfqntpbvoClermont County Hospital CenterStart: 43-61-4422HolxnqqxcClermont County Hospital CenterStart: 51-89-4259Zvaqraxt to nephrologistClermont County Hospital CenterStart: 46-23-4755Ubvuzzzm admissionClermont County Hospital CenterStart: 03-04-8270Lymgmnxw to clinical allergistClermont County Hospital CenterStart: 38-64-2786PtivvszpiClermont County Hospital CenterStart: 85-80-3761RJWTN-19 Vaccine ( season)COVID-19 Vaccine ( season)[facility] SystemStart: 22-39-5722Lkrcramyj vaccinationInfluenza VaccineLima City Hospital SystemStart: 54-93-7467Bjdxtosg to rehabilitation physicianClermont County Hospital CenterStart: 41-97-6805Tevfqzis to vascular surgeonClermont County Hospital CenterStart: 87-77-5769Fdaoovji to nephrologistClermont County Hospital CenterStart: 11-92-4661Gdtnofyyuuzn [facility] CenterStart: 52-59-6879Fmoccnmo admissionClermont County Hospital CenterStart: 83-27-3183BmfyitdttClermont County Hospital CenterStart: 70-66-8154QknyidejrClermont County Hospital CenterStart: 37-03-6122Mitfy screening for proteinUrine MicroalbuminThe Christ Hospital LightSquared SystemStart: 02-27-2024 End: 25-27-6513EL.doppler Extremity arteries - bilateral for physiologic artery studyVas art doppler lwr bilat mult lev/PVR Vascular Ultrasound Routine Critical limb ischemia of left lower extremity with gangrene (CMS-HCC) Expected: 02/27/2024, Expires: 02/26/2025[facility] Work Phone: Comment on above:Expected: 02/27/2024, Expires: 02/26/2025Start: 40-23-8416COCLS-19 Vaccine ( season)COVID-19 Vaccine ( season)[facility] LightSquared SystemStart: 51-18-4602Gooybngon vaccinationInfluenza VaccineLima City Hospital SystemStart: 28-33-1647Vgcmadkc identified in Blood by CultureBlood CultureClermont County Hospital CtrStart: 66-51-4792KQS ( or age 60+ yrs) (1 - Risk 60-74 years 1-dose series)RSV ( or age 60+ yrs) (1 - Risk 60-74 years 1-dose series)[facility] LightSquared SystemStart: 78-28-5280Kbxawwpodeozmv of varicella zoster vaccineZoster (Shingles) Vaccine (1 of 2)[facility] LightSquared SystemStart: 89-07-8067Bwunh BMI Follow Up PlanAdult BMI Follow Up PlanLima City Hospital SystemStart: 02-04-1978 Adult BMI ScreeningAdult BMI ScreeningL[facility] City Hospital SystemStart: 02-04-1978 Diabetic foot examinationDiabetic Foot ExamL[facility] City Hospital SystemStart: 48-07-7122Zkuftqtwhh ScreeningDepression ScreeningLima City Hospital SystemStart: 30-69-4889Qinihod ScreeningTobacco ScreeningLima City Hospital SystemStart: 63-61-7663Bzrvwhct screeningDiabetic Ophthalmology ExamLima City Hospital System Start: 44-24-3425Dpdowx Use: CardiovascularStatin Use: CardiovascularThe Christ Hospital Health SystemStart: 95-01-7580Gdosoj Use: DiabeticStatin Use: DiabeticThe Christ Hospital Health SystemAnion gap measurementPaulding County HospitalErythrocyte distribution width [Ratio] by Automated countClermont County Hospital Center Erythrocytes [#/volume] in [facility] CampusGlomerular filtration rate [Volume Rate/Area] in Serum, Plasma or Blood by Creatinine [facility] HospitalHematocrit [Volume Fraction] of [facility] CampusHemoglobin [Mass/volume] in [facility] CampusLeukocytes [#/volume] corrected for nucleated erythrocytes in Blood by Automated [facility] HospitalMCH [Entitic mass] by Automated [facility] HospitalMCHC [Mass/volume] by Automated [facility] HospitalMCV [Entitic volume] by Automated count [facility] HospitalPatient referralPremier Health [facility] Platelet mean volume [Entitic volume] in Blood by Automated [facility] HospitalPlatelets [#/volume] in [facility] CampusXR Hip - right 2 [facility] SystemXR Wrist - right GE 3 [facility] Immunizations Immunization DateImmunizationNotesCare VtdscisjPdkyqgoi54-79-0839bbagbtnim virus vaccine, unspecified formulationNima Lee MD Work Phone: [facility]10-15-2017tetanus toxoid, reduced diphtheria toxoid, and acellular pertussis vaccine, adsorbedMoyung Lee MD Work Phone: [facility] HospitalAutisl30-01-3612zjppwxnri, seasonal, injectableEssam Jaki Other [facility]01-29-2016 pneumococcal polysaccharide vaccine, 23 valentEssam Jaki Other [facility] Payers DatePayer CategoryPayerPolicy [id number] Cross Blue ShieldBCBS Member Subscriber Plan / Payer (Effective 2017- Present) Name: Rashard Lyman Relation to Subscriber: Spouse Name: TORRES LYMAN Date of : 1964 Address: [address] [place] [id number] Payer ID: Not on file Type: Not on file Address: [address] [place] [id number] [facility] - OtherANTHEM [id number] 2..1.757768.3.579.2.4[id number] 2..1.086160.3.579.2.47224-53-0319Rxvizjt9445985 2..1.234207.3.579.2.27482-52-1717Jpkzlor0873066 2..1.496823.3.579.2.07515-57-0534Ifmnqod0091543 2..1.914519.3.579.2.27805-59-8287Aydkxvc1698161 2..1.965773.3.579.2.50605-57-3891Lhenquz7250428 2.16.840.1.103848.3.579.2.18299-24-3156Iowrrsh7923320 2.16.840.1.552238.3.579.2.94649-73-8711Ocgeggg8215394 2.16.840.1.551186.3.579.2.03668-00-9300Hywhygp8894879 2.16.840.1.489446.3.579.2.49920-50-2131Umzxdqn7620744 2.16.840.1.933304.3.579.2.59586-10-3277Vgwukrf5581367 2.16.840.1.441514.3.579.2.31115-24-7752Yxizaov1440373 2.16.840.1.878358.3.579.2.76132-68-2772Ysgipsl3798164 2.16.840.1.909873.3.579.2.77254-64-3452Mjfwval4092436 2.16.840.1.598609.3.579.2.33175-77-8252Xhgemjk4403980 2.16.840.1.638779.3.579.2.18337-41-5001Lebbfyh7647598 2.16.840.1.430911.3.579.2.74534-68-1987Vzkswdr5447193 2.16.840.1.089542.3.579.2.57181-78-9144Qdgxfvb0821466 2.16.840.1.613558.3.579.2.08294-36-0211Nebegeq4036984 2.16.840.1.183171.3.579.2.88011-41-3102Rvwxjdk5722378 2.16.840.1.001750.3.579.2.67777-87-2180Zdoealy9538631 2.16.840.1.049097.3.579.2.32992-42-0266Kknnxme4278789 2.16.840.1.783555.3.579.2.91824-05-8006Moftfhs3073990 2.16.840.1.155737.3.579.2.71051-88-2203Mvovuyi9577510 2.16.840.1.710739.3.579.2.16339-20-1540Xdkxhpm8660868 2.16.840.1.650772.3.579.2.23814-44-5272Fikysmm3820943 2.16.840.1.798810.3.579.2.27152-17-5821Agmggnl3961055 2.16.840.1.977629.3.579.2.65474-71-9424Vcumvpc1363939 2.16.840.1.463909.3.579.2.62629-53-0656Ivulzch7651294 2.16.840.1.559841.3.579.2.64913-52-0016Ackvgqp0476106 2.16.840.1.104774.3.579.2.46757-31-1708Xiumzef8801083 2.16.840.1.734515.3.579.2.59322-32-8808Qsnscvk4904587 2.16.840.1.784985.3.579.2.64291-40-4540Vxsbcam7293758 2.16.840.1.950862.3.579.2.19935-69-2167Cqfmczj9354147 2.16.840.1.115788.3.579.2.75780-01-8584Hsuhrns6062730 2.16.840.1.523773.3.579.2.40258-83-0195Xumobwb9644558 2.16.840.1.004237.3.579.2.10558-72-0413Kvgbcrx9377173 2.16.840.1.520155.3.579.2.62078-42-6212Wnhjswm9100509 2.16.840.1.445361.3.579.2.40620-65-7513Eaozbha6196808 2.16.840.1.137470.3.579.2.20830-82-5014Oakschw2479951 2.16.840.1.505777.3.579.2.61005-65-1825Roozpeb1168901 2.16.840.1.681457.3.579.2.46240-35-5038Bbzxrcg0825553 2.16.840.1.988143.3.579.2.31509-27-1885Apxbalt8899395 2.16.840.1.263888.3.579.2.59715-87-7664Jmirwpf3257955 2.16.840.1.991110.3.579.2.80208-96-1786Lbaamqo1503748 2.16.840.1.509859.3.579.2.84618-11-9087Pxsvnbf22317588 2.16.840.1.144119.3.579.2.655407-06-7759Ywvhuav95955074 2.16.840.1.949025.3.579.2.233259-91-7638Gkozbkm44556826 2.16.840.1.175454.3.579.2.516348-44-0065Qsenyga10235786 2.16.840.1.788766.3.579.2.147704-92-3192Zskdmlv86348710 2..840.1.504330.3.579.2.949576-68-1549Tyaqmnw86565738 2..0.1.401419.3.579.2.258747-31-5282Yyxblhn39012799 2..840.1.373954.3.579.2.151769-08-5516Lenddmu19679261 2..0.1.403245.3.579.2.599277-34-3248Lxvqztd60112059 2..0.1.883947.3.579.2.723632-47-8961Jhofkxz7399411 2..840.1.362574.3.579.2.172443-11-1961Kmxferh0392238 2..1.261807.3.579.2.477946-75-4300OnrdcghZPL581P28505 [id number] [id number] [id number] 2..1.150836.3.579.2.747Jwdjmdn36845693 2..1.987437.3.579.2.531 Social History DateTypeDetailFacilityTobacco smoking status NHISUnknown if ever smokedClermont County Hospital CtrStart: 86-85-7971Vsd Assigned At [facility] CenterStart: 60-03-7984Aymipoy smoking status NHISUnknown if ever smokedNOMS HealthcareStart: 63-26-2777Gsdycve smoking status NHISNever smoked tobacco (finding)[facility] Systemtart: 06-09-2020 End: 66-07-1879Ghg Assigned At BirthStella [employer] Other Start: 02-10-2017 End: 37-06-9332Lxzuqmv smoking status NHISEx-smokerAs[facility]ab[facility] End: 33-63-2685Baalzms of tobacco useCurrent smokerAshtabula General Hospital End: 17-26-1829Gqmcdnq of tobacco useCigarette SmokerL[facility] Hospital System Start: 79-00-7867Zegxlmt use and exposureSmokeless tobacco non-userLima City Hospital SystemStart: 57-06-6152Ukihftiez beverage intakeCurrent non-drinker of alcohol (finding)[facility]: 06-09-2020 End: 23-51-7720Vycrtno of Social functionLima City Hospital SystemStart: 58-32-8855BgzpbrwghFntsvyaHkeKubijo Health SystemStart: 64-18-5473Ogo assigned at birthNot on fileLima City Hospital SystemStart: 12-02-2014 End: 35-11-3396XctGpgo (finding)[facility]art: 17-68-7085ZVIZ Follow upSDOH Follow upPremier Health [facility] Hospital [facility] Work Phone: Medical Equipment Procedure CodeEquipment CodeEquipment Original TextEquipment IdentifierDates ORIF, hipOrthopaedic fixation plate, non-bioabsorbable, sterile ()[id number] FDAStart: 68-05-6487OFPP, hipOrthopaedic bone screw, non- bioabsorbable, non-sterile()[id number] FDAStart: 46-40-5640HOSZ, hip Orthopaedic bone screw, non-bioabsorbable, non-sterile()[id number] FDA Start: 08-99-8126VXJF, hipOrthopaedic bone screw, non-bioabsorbable, non-sterile ()[id number] FDAStart: 32-42-6965MJTR, hipOrthopaedic bone screw, non- bioabsorbable, non-sterile()[id number] FDAStart: 11-94-9849XDBR, hipFemur nail, sterile()[id number] FDAStart: 50-55-6540NBGB, hipSpiral blade()[id number] FDAStart: 12-24-2024 Goals DatePatient GoalDesired Activity/State Functional Status BbeqJqwxvustniRzqerzYaoifupr76-52-6267Xkielzyzll statusPatient at Baseline [facility] Mental Status EveuIzezezgihfRvyqijUjedvcyx72-08-7895Znibkyloz functionCognitive Status Patient at BaselinePremier Health Miami Valley Hospital North Clinical Notes 07-15-2020 to 02-17-2025 Note Date & WfhuSesiBjxkbhbt45-51-1417 History of Present illness Narrative* Colton Kiransteven, DO - 02/17/2025 11:59 PM EDT Patient Name: Rashard Lyman Date of : 1960 Date of Service: 02/09/2025 Facility: [facility] Type of Visit: Skilled Visit Subjective Rashard Lyman is a 65 y.o. male [facility]. Rashard is in therapy. He has not had any hypoglycemic episodes. His insulin was recently decreased. He is walking more. Overall he feels he is doing well. Still gets hypotensive after dialysis.he has no new concerns. Allergies: Aspirin, Byetta [exenatide], Celebrex [celecoxib], and Synvisc [hylan g-f 20] Code Status: FULL CODE BP 110/73 Pulse 99 Temp 36.3 C (97.4 F) Resp 18 Wt 109.1 kg (240 lb 8 oz) SpO2 96% BMI 29.27 kg/m Physical Exam Vitals reviewed. Constitutional: General: He is not in acute distress. Appearance: He is not ill-appearing. HENT: Head: Normocephalic. Cardiovascular: Rate and Rhythm: Normal rate and regular rhythm. Heart sounds: Normal heart sounds. No murmur heard. Pulmonary: Effort: Pulmonary effort is normal. No respiratory distress. Breath sounds: Normal breath sounds. No wheezing, rhonchi or rales. Abdominal: General: Bowel sounds are normal. Palpations: Abdomen is soft. Tenderness: There is no abdominal tenderness. Musculoskeletal: Right Lower Extremity: Right leg is amputated below ankle. Left Lower Extremity: Left leg is amputated below ankle. Neurological: General: No focal deficit present. Mental Status: He is alert and oriented to person, place, and time. Motor: Weakness present. Gait: Gait abnormal. Psychiatric: Attention and Perception: Attention normal. Mood and Affect: Mood normal. Speech: Speech normal. Behavior: Behavior normal. Behavior is cooperative. Thought Content: Thought content normal. Judgment: Judgment normal. Summary / Assessment / Plan 1. Type 2 diabetes mellitus with diabetic neuropathy, with long-term current use of insulin ([facility] 2. End stage renal disease ([facility] 3. Hemodialysis-associated hypotension 4. Acquired absence of left foot ([facility]) 5. Acquired absence of right foot ([facility]) He is doing a bit better with his blood sugars but blood pressure still is a problem. He is alreadytaking midodrine. He is not a candidate for Florinef. Continue therapy to reach maximum improvement. ELECTRONICALLY SIGNED BY: Colton Lamb DO documented in this encounterAshtabula General Hospital10-21-2025 History of Present illness Narrative* Colton Lamb DO - 02/16/2025 11:59 PM EDT Patient Name: Rashard Lyman Date of : 1960 Date of Service: 02/16/2025 Facility: [facility] Type of Visit: Skilled Visit Subjective Rashard Lyman is a 65 y.o. male [facility] Rashard isn't therapy. His blood pressure still drops when he walks after he has dialysis. He is walking better. Fasting blood sugars were high recently but he track to regular cokes. I recommended that he should switch to diet Coke but he said you only live once . Allergies: Aspirin, Byetta [exenatide], Celebrex [celecoxib], and Synvisc [hylan g-f 20] Code Status: FULL CODE BP 98/63 Pulse 76 Temp 36.3 C (97.4 F) Resp 18 Wt 104 kg (229 lb 3.2 oz) SpO2 97% BMI 27.90 kg/m Physical Exam Vitals reviewed. Constitutional: General: He is not in acute distress. Appearance: He is not ill-appearing. HENT: Head: Normocephalic. Cardiovascular: Rate and Rhythm: Normal rate and regular rhythm. Heart sounds: Normal heart sounds. No murmur heard. Pulmonary: Effort: Pulmonary effort is normal. No respiratory distress. Breath sounds: Normal breath sounds. No wheezing, rhonchi or rales. Abdominal: Tenderness: There is no abdominal tenderness. Musculoskeletal: General: Deformity and signs of injury present. Right Lower Extremity: Right leg is amputated below ankle. Left Lower Extremity: Left leg is amputated below ankle. Neurological: General: No focal deficit present. Mental Status: He is alert and oriented to person, place, and time. Motor: Weakness present. Gait: Gait abnormal. Psychiatric: Attention and Perception: Attention normal. Mood and Affect: Mood normal. Speech: Speech normal. Behavior: Behavior normal. Behavior is cooperative. Thought Content: Thought content normal. Judgment: Judgment normal. Summary / Assessment / Plan 1. Type 2 diabetes mellitus with diabetic neuropathy, with long-term current use of insulin ([facility]) 2. End stage renal disease ([facility]) 3. Dependence on renal dialysis 4. Hemodialysis-associated hypotension He is currently on midodrine 10 mg T.I.D. for hypotension. Consider a p.r.n. dose. Continue therapy to reach maximum improvement. Encouraged diet for improved sugars. All medications reviewed and are medically necessary. ELECTRONICALLY SIGNED BY: Colton Lamb DO documented in this encounterSt. Rita's HospitalGracious Eloise Tpaygm95-25-0595 History of Present illness Narrative* Colton Lamb DO - 02/02/2025 12:12 PM EDT Patient Name: Rashard Lyman Date of : 1960 Date of Service: 02/02/2025 Facility: [facility] Type of Visit: Skilled Visit Subjective Rashard Lyman is a 64 y.o. male [facility]. Rashard is in therapy. He took 4 steps today. He is happy with his progress. He doesn't feel well though. His BP is low and he is nauseated. He feels he is getting too much fluid taken off at dialysis.He would like something for nausea. His appetite is low. He says he eats less than 1/2 of his meals. His FBSs are better since lantus dose was decreased. Allergies: Aspirin, Byetta [exenatide], Celebrex [celecoxib], and Synvisc [hylan g-f 20] Code Status: FULL CODE BP (!) 89/60 Pulse 92 Temp 36.6 C (97.9 F) Resp 18 Wt 103.8 kg (228 lb 12.8 oz) SpO2 99% BMI 27.85 kg/m Physical Exam Vitals reviewed. Constitutional: General: [...] of injury present. Cervical back: Neck supple. Right Lower Extremity: Right leg is amputated below ankle. Left Lower Extremity: Left leg is amputated below ankle. Lymphadenopathy: Cervical: No cervical adenopathy. Neurological: General: No focal deficit present. Mental Status: He is alert and oriented to person, place, and time. Motor: Weakness present. Gait: Gait abnormal. Assessment/Plan Summary / Assessment / Plan 1. Type 2 diabetes mellitus with diabetic neuropathy, with long-term current use of insulin ([facility]) 2. Unspecified trochanteric fracture of right femur, subsequent encounter for closed fracture with routine healing 3. Nausea 4. Acquired absence of left foot ([facility]) 5. Acquired absence of right foot ([facility]) 6. End stage renal disease ([facility]) Will add ondansetron 4 mg Q4 hrs prn. FBSs stable now since cutting back. Risk of hypoglycemia is riskier than letting it run a little high. He isn't on any BP meds to stop. Continue midodrine. Continue therapy to reach maximum improvement. He is hoping to be able to go back home soon. All medications reviewed and are medically necessary ELECTRONICALLY SIGNED BY: Colton Lamb DO documented in this encounterSt. Rita's HospitalCarrot Medical [facility] Borg[facility]-Pipp HospitalCqploe15-28-5944 History of Present illness Narrative* Colton Lamb DO - 01/26/2025 11:59 PM EDT Patient Name: Rashard Lyman Date of : 1960 Date of Service: 01/26/3035 Facility: [facility] Type of Visit: Skilled Visit Subjective Rashard Lyman is a 64 y.o. male seen [facility]. When his participating in therapy and getting stronger. Still has pain in his right hip. He is getting dialysis. He is having low blood glucose levels. Blood pressure is also labile. He is on midodrine 3 times a day. Allergies: Aspirin, Byetta [exenatide], Celebrex [celecoxib], and Synvisc [hylan g-f 20] Code Status: FULL CODE BP 116/80 Pulse 76 Temp 36.6 C (97.8 F) Resp 18 Wt 107.4 kg (236 lb 11.2 oz) SpO2 97% BMI 28.81 kg/m Physical Exam Vitals reviewed. Constitutional: General: He is not in acute distress. Appearance: He is overweight. He is not ill-appearing. HENT: Head: Normocephalic. Cardiovascular: Rate and Rhythm: Normal rate and regular rhythm. Heart sounds: Normal heart sounds. No murmur heard. Pulmonary: Effort: Pulmonary effort is normal. No respiratory distress. Breath sounds: Normal breath sounds. No wheezing, rhonchi or rales. Musculoskeletal: General: Deformity and signs of injury present. Cervical back: Neck supple. Neurological: General: No focal deficit present. Mental Status: He is alert and oriented to person, place, and time. Motor: Weakness present. Summary / Assessment / Plan 1. Unspecified trochanteric fracture of right femur, subsequent encounter for closed fracture with routine healing 2. Type 2 diabetes mellitus with diabetic neuropathy, with long-term current use of insulin ([facility]) 3. End stage renal disease ([facility]) 4. Acquired absence of right foot ([facility]) 5. Acquired absence of left foot ([facility]) His blood glucose readings were reviewed and he has had multiple ones below 100 and although they are not significantly low they are symptomatic. I am going to cut back on his Lantus to 26 units daily. Continue with the sliding scale. Continue with therapy to reach maximum improvement. Follow up with dialysis as directed. ELECTRONICALLY SIGNED BY: Colton Lamb DO documented in this encounterSt. Rita's HospitalCarrot Medical [facility]-Pipp HospitalLinbpy30-09-5389 History of Present illness Narrative* Colton Lamb DO - 01/19/2025 11:59 PM EDT Patient Name: Rashard Lyman Date of : 1960 Date of Service: 01/19/2025 Facility: [facility] Type of Visit: Admission H&P Subjective Rashard Lyman is a 64 y.o. male seen today at [facility] for admission H&PVaishali Munoz presents today from [facility] to [facility] for therapy. He has a fairly complex medical history. He recently fell and fractured his right hip. He had intensive inpatient therapy following his hospital stay at [facility]. He requires physical therapy as he [...] musculoskeletal pain COPD (chronic obstructive pulmonary disease) [place] Diabetes mellitus ([facility]) Fracture, clavicle History of MRSA (methicillin resistant Staphylococcus aureus) Neuropathy Renal failure Dialysis since 04/2014 Past Surgical History: Procedure Laterality Date APPENDECTOMY CHOLECYSTECTOMY DIALYSIS FISTULA CREATION Right arm INJECTION CAUDAL EPIDURAL WITH CATHETER, STEROID N/A 06/05/2019 Performed by Jefferson Bryant MD at [facility] TO[facility] AMPUT[facility] Right 5th TONSILLECTOMY Family [...] 4 ) Wt 111.4 kg (245 lb 9.6oz) SpO2 99% BMI 29.90 kg/m Physical Exam [...] Chronic obstructive pulmonary disease, unspecified COPD type ([facility]) 3. End stage renal disease ([facility]) 4. Dependence on renal dialysis 5. Peripheral vascular disease, unspecified 6. Acquired absence of left foot ([facility]) 7. Acquired absence of right foot ([facility]) 8. Type 2 diabetes mellitus with diabetic neuropathy, with long-term current use of insulin ([facility]) 9. Hyperlipidemia, unspecified hyperlipidemia type 10. Gastroesophageal reflux disease, unspecified whether esophagitis present 11. Psoriasis, unspecified [facility] Continue current regimen. Therapy evaluation. Full code. Continue dialysis. He is using high risk medication with benefit. Can not take NSAIDs. Continue midodrine 10 mg twice a day for hypotension. Good rehab potential. ELECTRONICALLY SIGNED BY: Colton Lamb DO documented in this encounterAshtabula [facility]08-27-[facility]25 Evaluation note* Diagnosis Onset Date Resolution Status Admit Date MARISOL (acute kidney injury) acuteAu2024 2:49amCKD (chronic kidney disease) stage 5, GFR less than 15 ml/minacuteAugust 2024 2:49amEnd-stage renal disease needing dialysis acuteAu2024 2:49amHip fractureacuteAut 2024 2:49am HyperkalemiaacuteAut 2024 2:49amHypertensive kidney disease with chronic kidney disease stage VacuteAugust 2024 2:49amIntertrochanteric fracture of right hipacuteAut 2024 2:49amMetabolic acidosisacuteAugust 2024 2:49amPre-operative cardiovascular examinationacuteAu2024 2:49amPsoriasisacuteAugust 2024 2:49amRadius distal fractureacuteAuc[facility]20[facility] 2:49amType 2 diabetes mellitus with diabetic chronic kidney disease acuteAu2024 2:49amCOPD (chronic obstructive pulmonary disease)chronic December 23, 2024 2:49amDiabeteschronicAugust 2024 2:49am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chronicAugu2024 2:49amGERD (gastroesophageal reflux disease)chronicDecember 23, 2024 2:49amHypertensionchronicAugust 2024 2:49am [facility] Work Phone: 1(983) 402-219408-27-2025 Evaluation note* Diagnosis Onset Date Resolution Status Admit Date MARISOL (acute kidney injury) acuteDecember 23, 2024 2:49amCKD (chronic kidney disease) stage 5, GFR less than 15 ml/minacuteAugust 2024 2:49amEnd-stage renal disease needing dialysis acuteAugust 2024 2:49amHip fractureacuteAugust 2024 2:49am HyperkalemiaacuteAugust 2024 2:49amHypertensive kidney disease with chronic kidney disease stage VacuteAugust 2024 2:49amIntertrochanteric fracture of right hipacuteAugust 2024 2:49amMetabolic acidosisacuteAugust 2024 2:49amPre-operative cardiovascular examinationacuteAut 2024 2:49amPsoriasisacuteAugust 2024 2:49amRadius distal fractureacuteAugust 2024 2:49amType 2 diabetes mellitus with diabetic chronic kidney disease acuteAugus2024 2:49amCOPD (chronic obstructive pulmonary disease)chronic [place] 2024 2:49amDiabeteschronicAugust 2024 2:49am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chronicAugust 2024 2:49amGERD (gastroesophageal reflux disease)chronicAugust 2024 2:49amHypertensionchronicAugust 2024 2:49amAnemia of renal diseaseacuteSept2024 4:06pmDiabetic neuropathy acuteSept2024 4:06pmEnd-stage renal disease needing dialysisacute December 30, 2024 4:06pmHip fractureacuteSeptember 2024 4:06pm Hypertensive kidney disease with chronic kidney disease stage VacuteSept2024 4:06pmIntertrochanteric fracture of right hipacuteSept2024 4:06pmRadius distal fractureacuteSept2024 4:06pmType 2 diabetes mellitus with diabetic chronic kidney diseaseacuteSept2024 4:06pmCOPD (chronic obstructive pulmonary disease)chronicSept2024 4:06pmGERD (gastroesophageal reflux disease)chronicSept2024 4:06pmHypertension chronicSept2024 4:06pm [facility] Work Phone: 1(394) 822-968108-27-2025 Evaluation note* Diagnosis Onset Date Resolution Status Admit Date MARISOL (acute kidney injury) acuteAu2024 2:49amCKD (chronic kidney disease) stage 5, GFR less than 15 ml/minacuteAut 2024 2:49amEnd-stage renal disease needing dialysis acuteAu2024 2:49amHip fractureacuteAugust 2024 2:49am HyperkalemiaacuteAugust 2024 2:49amHypertensive kidney disease with chronic kidney disease stage VacuteAut 2024 2:49amIntertrochanteric fracture of right hipacuteAut 2024 2:49amMetabolic acidosisacuteAugust 2024 2:49amPre-operative cardiovascular examinationacuteAu2024 2:49amPsoriasisacuteAugust 2024 2:49amRadius distal fractureacuteAut 2024 2:49amType 2 diabetes mellitus with diabetic chronic kidney disease acuteAu2024 2:49amCOPD (chronic obstructive pulmonary disease)chronic [place] 2024 2:49amDiabeteschronicAugust 2024 2:49am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chronicAugust 2024 2:49amGERD (gastroesophageal reflux disease)chronicAugus2024 2:49amHypertensionchronicAugust 2024 2:49amAnemia of renal diseaseacuteSept2024 4:06pmDiabetic neuropathy acuteSept2024 4:06pmEnd-stage renal disease needing dialysisacute December 30, 2024 4:06pmHip fractureacuteSept2024 4:06pm Hypertensive kidney disease with chronic kidney disease stage [place] 4:06pmIntertrochanteric fracture of right hipacuteSept2024 4:06pmRadius distal fractureacuteSept2024 4:06pmType 2 diabetes mellitus with diabetic chronic kidney diseaseacuteSept2024 4:06pmCOPD (chronic obstructive pulmonary disease)chronicSeptember 2024 4:06pmGERD (gastroesophageal reflux disease)chronicSeptember 2024 4:06pmHypertension chronicSeptember 2024 4:06pmIntertrochanteric fracture of right hipacute October 2024 10:59amRadius distal fractureacuteOctober 2024 10:59am Status post amputation of toe of right footchronicOctober 2024 10:59amOther specified postprocedural statesnoneactiveOctober 2024 10:59am [facility] Work Phone: 1(553) 445-119410-31-2024 Evaluation + Plan note* Assessment & Plan Note - Nima Lee MD - 02/27/2024 11:44 AM EDTAssociated Problem(s): Critical limb ischemia of left lower extremity with gangrene (CMS-HCC) P[facility]10-[facility]24 Miscellaneous Notes* Assessment & Plan Note - Nima Lee MD - 02/27/2024 11:44 AM EDTAssociated Problem(s): Critical limb ischemia of left lower extremity with gangrene (CMS-HCC) PVR documented in this encounterAshtabula General Hospital10-31-2024 History of Present illness Narrative* Nima [...] musculoskeletal pain COPD (chronic obstructive pulmonary disease) ([facility]) Diabetes mellitus ([facility] Fracture, clavicle History of MRSA (methicillin resistant Staphylococcus aureus) Neuropathy Renal failure Dialysis since 04/2014 Past Surgical History: Past Surgical History: Procedure Laterality Date APPENDECTOMY CHOLECYSTECTOMY DIALYSIS FISTULA CREATION Right arm INJECTION CAUDAL EPIDURAL WITH CATHETER, STEROID N/A 06/05/2019 Performed by Jefferson Bryant MD at [facility] TO[facility] Right 5th TONSILLECTOMY Social [...] Plan PVR Rashard was 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 Diagnoses and all [...] you for your understanding. documented in this encounterAshtabula [facility] Hospital04-24-2023 NotePROCEDURE: XR FOOT LT MIN 3 [...] Electronically authenticated by: PRISCA SANDERSON Date: 2022-08-20 13:00[facility]04-19-2023 NoteEXAM: XR CHEST 2 V HISTORY: [...] decompensation is identified. Electronically authenticated by: CHINO VENEGAS Date: 2022-08-15 15:06[facility]04-05-2023 NotePROCEDURE: XR FOOT LT MIN 3 [...] Electronically authenticated by: JAMESON SALGUERO Date: 2022-08-01 07:49[facility]11-03-2022 NoteCONSULTATION CONSULTATION DATE: 03/01/2022 This is [...] with certain activities such as standing, walking, twill cutter and evening hours, and changes in the [...] patient agrees with the plan of care.[facility] [id number] NoteCONSULTATION PROCEDURE DATE: 03/01/2022 PREOPERATIVE DIAGNOSIS: Right [...] fan-like pattern and patient tolerated procedure well.[facility] HospitalIgvmljal04-09-3941 NotePROCEDURE: XR ANKLE LT MIN 3 V, [...] authenticated by: PRISCA SANDERSON Date: 2021-12-22 10:12[facility] [id number] NotePROCEDURE: XR ANKLE LT MIN 3 V, [...] Electronically authenticated by: PRISCA SANDERSON Date: 2021-12-22 10:[facility]08-26-2022 NotePROCEDURE: XR ANKLE LT MIN 3 V, [...] Electronically authenticated by: PRISCA SANDERSON Date: 2021-12-22 10:[facility]08-26-2022 NotePROCEDURE: XR ANKLE LT 2V HISTORY: Pain ; left ankle external fixation application COMPARISON: None. FINDINGS: BONES:3 intraoperative spot fluoroscopic images demonstrate external fixation device surrounding the left ankle. IMPRESSION: External fixation device application. Electronically authenticated by: PRISCA SANDERSON Date: 2021-12-22 10:[facility]08-16-2022 NotePROCEDURE: XR FOOT LT MIN 3 [...] Electronically authenticated by: PRISCA SANDERSON Date: 2021-12-12 08:[facility]08-04-2022 NoteCONSULTATION The patient returns to the [...] up in clinic in three months' time.[facility] [id number] NoteCONSULTATION CONSULTATION DATE: 11/22/2021 HISTORY OF PRESENT [...] return to the clinic to receive those.[facility] [id number] NotePROCEDURE: XR FOOT LT MIN 3 VIEWS [...] authenticated by: PRISCA SANDERSON Date: 2021-11-14 15:42[facility] [id number] NotePROCEDURE: XR FOOT LT MIN 3 VIEWS [...] Electronically authenticated by: JAMESON SALGUERO Date: 2021-11-07 19:28[facility] [id number] Evaluation note* Encounter Date Diagnosis Assessment Notes [...] he has more edema to increase diuretics. Feb,iabetic nephropathy (ICD-10 - E11.21) Patient has longstanding diabetes with multiple complications on insulin. Hemoglobin A1c 10.5%, he was advised that diabetes is uncontrolled and may contribute to progression of CKD. Patient follow-up with his family doctor. He is currently on insulin and GLP-1 agonist. Feb,Hypertensive chronic kidney disease w stg 1-4/unsp chr [...] get off some of his psychiatric medications. 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 Will reorder. Calcium, phosphorus and intact H were at target. Feb,nemia in chronic kidney disease (ICD-10 - D63.1) He has mild anemia of chronic kidney disease. Hemoglobin more than 10 g/dL. We will monitor every 3to 4 months. Feb,OtherPatient has dizziness with possible vertigo. He is really on meclizine. He takes midodrine as well as stated above. Zyncd Other 03-27-2021 NoteMR#: [id number] I [facility] Pt. Name: Rashard Lyman Admitted: 07/13/2020 [...] chest pain. Also, there is mention on [facility] records of large inferior/lateral wall abnormality in [...] ON DISCHARGE: A (more content not included)...[facility]03-19-2021 NoteMR#: [id number] [facility] Pt. Name: Rashard Lyman Surgery Date: 07/14/2020 Room #: 3AB [id number] Date of : 1960 PROCEDURE NOTE ATTENDING: [...] Pham MD Date Trans: 07/15/2020 01:32 P/ [id number] cc: Nima Wynne MD [address] [place], [place] [address] [address] NoteMR#: [id number] [facility] Pt. Name: Rashard Lyman Surgery Date: 07/14/2020 Room #: 3AB [id number] Date of : 1960 PROCEDURE NOTE ATTENDING: Nima Wynne MD Procedure: Left sided US guided Thoracentesis Pre-procedure Diagnosis: Left pleural effusion Post-procedure Diagnosis: same as above Prior to Procedure: Informed Consent:The risks, benefits, indications, potential complications, and alternatives were explained to the patient/family and informed consent obtained Attending Staff: Nima Wynne Resident/Fellow/KAIAKO KURA TUARUA: Davis Pham Indications: Nura Munoz is 60 [...] Wynne MD Date Trans: 07/15/2020 12:53 P/ [id number] [facility]* Diagnosis Onset Date Resolution Status Hyperglycemia acutePneumoniaacutePsoriasisacuteType 2 diabetes mellitus with diabetic chronic kidney diseaseacuteCKD (chronic kidney disease) stage 4, GFR 15-29 ml/minchronic COPD (chronic obstructive pulmonary disease)chronic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 chronicGERD (gastroesophageal reflux disease)chronicObesities, morbidchronic Peripheral vascular occlusive diseasechronicStatus post amputation of toe of right footchronic [facility]* Diagnosis Onset Date Resolution Status MARISOL (acute kidney injury) acuteAnemia of renal diseaseacuteAtelectasis of left lungacuteFibrothoraxacute History of pleural effusionacuteMetabolic acidosisacutePericarditisacute Pleuritic chest painacutePsoriasisacuteType 2 diabetes mellitus with diabetic chronic kidney diseaseacuteCKD (chronic kidney disease) stage 4, GFR 15-29 ml/minchronicCOPD (chronic obstructive pulmonary disease)chronic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chronicGERD (gastroesophageal reflux disease)chronicHypertension [id number], morbidchronicPeripheral vascular occlusive diseasechronicStatus post amputation of toe of right footchronic [facility]* Diagnosis Critical limb ischemia of left lower extremity with gangrene ([facility] Primary [facility] this encounter [facility] noteNo assessment information available [facility] Work Phone: Evaluation note* Diagnosis Critical limb ischemia of left lower extremity with gangrene ([facility])- Primary Unspecified trochanteric fracture of right femur, subsequent encounter for closed fracture with routine healing- Primary Chronic obstructive pulmonary disease, unspecified COPD type ([facility]) End stage renal disease ([facility]) End stage renal disease Dependence on renal dialysis Renal dialysis status Peripheral vascular disease, unspecified Acquired absence of left foot ([facility]) Acquired absence of right foot ([facility]) Type 2 diabetes mellitus with diabetic neuropathy, with long-term current use of insulin ([facility]) Hyperlipidemia, unspecified hyperlipidemia type Gastroesophageal reflux disease, unspecified whether esophagitis present Psoriasis, unspecified documented [facility] this encounter [facility]* Diagnosis Critical limb ischemia of left lower extremity with gangrene ([facility])- Primary Type 2 diabetes mellitus with diabetic neuropathy, with long-term current use of insulin ([facility])- Primary Unspecified trochanteric fracture of right femur, subsequent encounter for closed fracture with routine healing Nausea Nausea alone Acquired absence of left foot (CMS-HCC) Acquired absence of right foot ([facility]) End stage renal disease ([facility]) End stage renal disease documented in this encounter [facility]* Diagnosis Critical limb ischemia of left lower extremity with gangrene ([facility])- Primary Unspecified trochanteric fracture of right femur, subsequent encounter for closed fracture with routine healing- Primary Type 2 diabetes mellitus with diabetic neuropathy, with long-term current use of insulin ([facility]) End stage renal disease ([facility] End stage renal disease Acquired absence of right foot ([facility]) Acquired absence of left foot ([facility]) documented in this encounter [facility]* Diagnosis Critical limb ischemia of left lower extremity with gangrene ([facility])- Primary Type 2 diabetes mellitus with diabetic neuropathy, with long-term current use of insulin ([facility])- Primary End stage renal disease ([facility]) End stage renal disease Dependence on renal dialysis Renal dialysis status Hemodialysis-associated hypotension Hypotension of hemodialysis documented in this encounter [facility]* Diagnosis Critical limb ischemia of left lower extremity with gangrene ([facility])- Primary Type 2 diabetes mellitus with diabetic neuropathy, with long-term current use of insulin ([facility])- Primary End stage renal disease ([facility]) End stage renal disease Hemodialysis-associated hypotension Hypotension of hemodialysis Acquired absence of left foot ([facility]) Acquired absence of right foot ([facility]) documented in this encounter [facility] SystemHistory general Narrative - Reported* Type Description Date Medical History ESRD Medical HistoryMOMedical HistoryHTNMedical HistoryDMMedical HistoryCOPDMedical HistoryAllergic reaction to Vicryl Sutures use Monofilament suturesMedical HistoryLOW BACK PAIN/ HAIRLINE FRACTURESurgical HistoryDialysis catheter placementsSurgical HistoryRight 5th toe pjzykujtlf29/2015Surgical History Creation rigth radiocephalic AVF06/2014Surgical HistoryRevision right Maged AVF by transposition of cephalic vein to subcuticular position/fistulogram/balloon angioplasty cephahlic vein inflow noonfhbd99/2015Surgical Historyall toes removed from left footSurgical HistoryappendectomySurgical Historygall bladder removedSurgical HistoryLEFT FOOT WOUND AND AMPUTATION OF ALL [id number] HistoryINJECTIONS IN HIS LOWER BACKHospitalization Historysee above Zyncd Other Hospital Discharge instructions Additional Instructions You are scheduled for an outpatient follow [facility] to re-assess your pericardial effusions on [...] knee Educate on high risk fall precautions [facility] Dis[facility] instructionsCl[facility]trHospital Discharge instructionsCl[facility] InstructionsNot on filedocumented in this encounterL[facility] InstructionsNot on filedocumented in this encounterLima [facility] InstructionsNot on filedocumented in this encounterL[facility] InstructionsNot on filedocumented in this encounterLima City Hospital SystemReason for referral (narrative)No reason for referral information availableClermont [facility] Work Phone: Assessments No Assessments Information Available Advance Directives Advance Directive Response Recorded Date/ Time Advance Directives No September 30 3:34pm Date ActivatedDate InactivatedComments09/30/2017 12:06 PM09/30/2017 8:03 PMDate ActivatedDate InactivatedComments09/30/2017 12:06 PM09/30/2017 8:03 PM Chief Complaint and Reason for [...] 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 GERD (gastroesophageal reflux disease) Hypertension [id number] Obesities, morbid Peripheral vascular occlusive disease Status post amputation of toe of right foot Chief Complaint Difficulty breathing pain in lung area Pericardial EffusionReason for VisitAKI (acute kidney injury) Anemia of renal disease Atelectasis of left lung Fibrothorax History of pleural effusion Metabolic acidosis Pericarditis Pleuritic chest pain Psoriasis Type 2 diabetes mellitus with diabetic chronic kidney disease CKD (chronic kidney disease) stage 4, GFR 15-29 ml/min COPD (chronic obstructive pulmonary disease) 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 GERD (gastroesophageal reflux disease) Hypertension [id number] Obesities, morbid Peripheral vascular occlusive disease Status post amputation of toe of right foot Chief Complaint Difficulty breathing pain in lung area Pericardial Effusion COPDReason for VisitAKI (acute kidney injury) Anemia of renal disease Atelectasis of left lung Fibrothorax History of pleural effusion Metabolic acidosis Pericarditis Pleuritic chest pain Psoriasis Type 2 diabetes mellitus with diabetic chronic kidney disease CKD (chronic kidney disease) stage 4, GFR 15-29 ml/min COPD (chronic obstructive pulmonary disease) 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 GERD (gastroesophageal reflux disease) Hypertension [id number] Obesities, morbid Peripheral vascular occlusive disease Status [...] 2024 2:49am right hip fracture, renal failure, renua keith tropon December 30, 2024 12:00am Reason [...] cardiovascular examination December 23, 2024 2:49am Psoriasis [place] 27th, 2025 2: 49am Radius distal fracture December 23, [...] 2:49am right hip fracture, renal failure, isabell rossion December 30, 2024 12:00am RT IT Hip [...] tristan Not Specified Hypertension Unknown fatherDeceasedUnknownmotherDiabetes mellitusUnknownHeart diseaseUnknownNo Family History Records Found Additional Source Comments (unrecognized sect ion and content) No Status Records FoundNo Status Records FoundNo Status Records FoundNo Status Records FoundNo Status Records FoundNo Status Records FoundNo Status Records Found INFORMATION SOURCE (unrecogn ized section and content) DATE CREATED AUTHOR 09/11/2020 [facility] DATE CREATED AUTHOR AUTHOR'S ORGANIZ ATION 10/21/2020 [facility] DATE CREATED AUTHOR AUTHOR'S ORGANIZ ATION 10/05/2022 [facility] DATE CREATED AUTHOR AUTHOR'S ORGANIZ ATION 06/03/2023 [facility] DATE CREATED AUTHOR AUTHOR'S ORGANIZ ATION 11/22/2023 [facility] DATE CREATED AUTHOR AUTHOR'S ORGANIZ ATION 02/18/2024 [facility] DATE CREATED AUTHOR AUTHOR'S ORGANIZ ATION 02/13/2025 [facility] Goals (unrecognized section and content) Goals may be documented in a n alternate sectionNo InformationNot on filedocumented as of this encounterGoals may be documented in an alternate sectionGoals may be documented in an alternate sectionGoals may be documented in an alternate sectionGoals may be documented in an alternate sectionNot on filedocumented as of this encounterGoals may be documented in an alternate sectionNot on filedocumented as of this encounterNot on filedocumented as of this encounterNot on filedocumented as of this encounterNot on filedocumented as of this encounter REASON FOR VISIT (unrecogniz ed section and content) ReasonCommentsNP-foot wound- left- no testingLeft foot ulcer , chronic on and off 5 years. Non healing. Care Teams (unrecognized sec tion and content) Team Status: Active Member Role Status Dates Jose Juarez JR DO Primary Care Provider Active Team Status: Active Member Role Status Dates Jose Juarez JR DO Primary Care Provider Active Start: December 23, 2024 Enrique Yang MDAdmit ProviderActiveStart: December 23, 2024 Leno Dela Cruz MDOther ProviderActiveStart: December 23, 2024 Carie Abraham MDOther ProviderActiveStart: December 23, 2024 Love Moody LPNOther ProviderActiveStart: December 23, 2024 Whitney Packending ProviderActiveStart: December 23, 2024 Ari Batista MDOther ProviderActiveStart: December 23, 2024 lAyssia Jacobo NP-COther ProviderActiveStart: December 23, 2024 Nima Lee MDOther ProviderActiveStart: December 23, 2024 Benjamin Patterson MDOther ProviderActiveStart: December 23, 2024 Luis Enrique Arora MDOther ProviderActiveStart: December 23, 2024 Nir Shah II, MDOther ProviderActiveStart: December 23, 2024 Clayton Cardenas MDOther ProviderActiveStart: December 23, 2024 Aleta Jensen , APRNOther ProviderActiveStart: December 23, 2024 Doc Shankar MDOther ProviderActiveStart: December 23, 2024 Liza Rod MDOther ProviderActiveStart: December 23, 2024 Team Status: Active Member Role Status Dates Jose Juarez JR DO Primary Care Provider Active Start: December 30, 2024 Enrique Yang MDAdmit ProviderActiveStart: December 30, 2024 Carie Abraham MDOther ProviderActiveStart: December 30, 2024 Love Moody LPNOther ProviderActiveStart: December 30, 2024 Ari Batista MDOther ProviderActiveStart: December 30, 2024 Alyssia Jacobo , O[employer] FARMER-COther ProviderActiveStart: December 30, 2024 Nima Lee MDOther ProviderActiveStart: December 30, 2024 Benjamin Patterson MDOther ProviderActiveStart: December 30, 2024 Luis Enrique Arora MDOther ProviderActiveStart: December 30, 2024 Nir Shah II, MDOther ProviderActiveStart: December 30, 2024 Phillip Duran , Other ProviderActiveStart: December 30, 2024 Mya Callahan MDOther ProviderActiveStart: December 30, 2024 Clayton Cardenas MDOther ProviderActiveStart: December 30, 2024 Aleta Jensen , APRNOther ProviderActiveStart: December 30, 2024 Doc Shankar MDOther ProviderActiveStart: December 30, 2024 Raimundo Mcclure MDAttending ProviderActiveStart: December 30, 2024 Team Status: Active Member Role Status Dates Jose Juarez JR DO Primary Care Provider Active Start: December 30, 2024 Aleah Sun ProviderActiveStart: December 30, 2024 Rachel Sun ProviderActiveStart: December 30, 2024 Clayton Cardenas MDOther ProviderActiveStart: December 30, 2024 Marlena Quintero RNOther ProviderActiveStart: December 30, 2024 Yudy Richter RNOther ProviderActiveStart: December 30, 2024 Denise Gold , JOANNEOther ProviderActiveStart: December 30, 2024 Diana Douglass , [...] MDOther ProviderActiveStart: December 30, 2024 Bryan James , DOOther ProviderActiveStart: December 30, 2024 Idalia Bryan MDOther ProviderActiveStart: December 30, 2024 Nazario Baez MDOther ProviderActiveStart: December 30, 2024 Patricia Carmona , O[employer] FARMER-COther ProviderActiveStart: December 30, 2024 Nick Jerez , APRNOther ProviderActiveStart: December 30, 2024 Toribio Best MDOther ProviderActiveStart: December 30, 2024 David Houston MDOther ProviderActiveStart: December 30, 2024 Ac Tineo MDOther ProviderActiveStart: December 30, 2024 Son Hampton , DOOther ProviderActiveStart: December 30, 2024 Ghislaine Fields , APRNOther ProviderActiveStart: December 30, 2024 Zaid June DOOther ProviderActiveStart: December 30, 2024 Luz Maria [...] Reilly MDOther ProviderActiveStart: December 30, 2024 Ericka tOto , APRNOther ProviderActiveStart: December 30, 2024 Talia [...] MDOther ProviderActiveStart: December 30, 2024 Elizabeth Monroe , [employer] FARMER-COther ProviderActiveStart: December 30, 2024 Carie Abraham MDOther ProviderActiveStart: December 30, 2024 Raimundo Mcclure MDOther ProviderActiveStart: December 30, 2024 Team Status: Active Member Role Status Dates Jose Juarez JR DO Primary Care Provider Active Start: January 06, 2025 Aleah Sun ProviderActiveStart: January 06, 2025 Clayton Cardenas MDOther ProviderActiveStart: January 06, 2025 Marlena Quintero RNOther ProviderActiveStart: January 06, 2025 Yudy Richter RNOther ProviderActiveStart: January 06, 2025 Denise Gold RNOther ProviderActiveStart: January 06, 2025 Diana Douglass RNOther ProviderActiveStart: January 06, 2025 Meme Cochran RNOther ProviderActiveStart: January 06, 2025 Brigitte Cardenas , JOANNEOther ProviderActiveStart: January 06, 2025 Sukumar Patricio MDOther ProviderActiveStart: January 06, 2025 Doug Joseph , DOOther ProviderActiveStart: January 06, 2025 Dinesh Cervantes MDOther ProviderActiveStart: January 06, 2025 Eugene Morel , DOOther ProviderActiveStart: January 06, 2025 Enrique Yang MDOther ProviderActiveStart: January 06, 2025 Liza Rod MDOther ProviderActiveStart: January 06, 2025 Bryan Cordova , DOOther ProviderActiveStart: January 06, 2025 Dewayne Godwin MDOther ProviderActiveStart: January 06, 2025 Ita Orellana , APRNOther ProviderActiveStart: January 06, 2025 Vishal Aguirre MDOther ProviderActiveStart: January 06, 2025 Krystal Rodriguez MDOther ProviderActiveStart: January 06, 2025 Henrry Manning MDOther ProviderActiveStart: January 06, 2025 Bryan James , DOOther ProviderActiveStart: January 06, 2025 Idalia Bryan MDOther ProviderActiveStart: January 06, 2025 Nazario Baez MDOther ProviderActiveStart: January 06, 2025 Patricia Carmona , [employer] FARMER-COther ProviderActiveStart: January 06, 2025 Nick Jerez , APRNOther ProviderActiveStart: January 06, 2025 Toribio Best MDOther ProviderActiveStart: January 06, 2025 David Houston MDOther ProviderActiveStart: January 06, 2025 Ac Tineo MDOther ProviderActiveStart: January 06, 2025 Son Hampton , DOOther ProviderActiveStart: January 06, 2025 Ghislaine Fields , APRNOther ProviderActiveStart: January 06, 2025 Zaid June DOOther ProviderActiveStart: January 06, 2025 Luz Maria Gamble MDOther ProviderActiveStart: January 06, 2025 Angelina Ren , APRNOther ProviderActiveStart: January 06, 2025 Stefany Herring , APRNOther ProviderActiveStart: January 06, 2025 Willian Soto MDOther ProviderActiveStart: January 06, 2025 Jerry Butler MDOther ProviderActiveStart: January 06, 2025 Maisonia Roger , DOOther ProviderActiveStart: January 06, 2025 Leno [...] MDOther ProviderActiveStart: January 06, 2025 Elizabeth Monroe NP-COther ProviderActiveStart: January 06, 2025 Carie Abraham MDOther ProviderActiveStart: January 06, 2025 Raimundo Mcclure MDOther ProviderActiveStart: January 06, 2025 Aleta Jensen APRNAttending ProviderActiveStart: January 06, 2025 Team Status: Active Member Role Status Dates Jose Juarez JR DO Primary Care Provider Active Start: January 13, 2025 Aleah Sun ProviderActiveStart: January 13, 2025 Whitney Sunending ProviderActiveStart: January 13, 2025 Clayton Cardenas MDOther ProviderActiveStart: January 13, 2025 Marlena Quintero RNOther ProviderActiveStart: January 13, 2025 Yudy Richter RNOther ProviderActiveStart: January 13, 2025 Denise Gold RNOther ProviderActiveStart: January 13, 2025 Diana Douglass RNOther ProviderActiveStart: January 13, 2025 Meme Cochran , JOANNEOther ProviderActiveStart: January 13, 2025 Brigitte Cardenas , JOANNEOther ProviderActiveStart: January 13, 2025 Sukumar Patricio MDOther ProviderActiveStart: January 13, 2025 Doug Joseph , DOOther ProviderActiveStart: January 13, 2025 Dinesh Cervantes MDOther ProviderActiveStart: January 13, 2025 Eugene Morel , DOOther ProviderActiveStart: January 13, 2025 Enrique Yang [...] MDOther ProviderActiveStart: January 13, 2025 Bryan James , DOOther ProviderActiveStart: January 13, 2025 Idalia Bryan MDOther ProviderActiveStart: January 13, 2025 Nazario Baez MDOther ProviderActiveStart: January 13, 2025 Patricia Carmona , O[employer] FARMER-COther ProviderActiveStart: January 13, 2025 Nick Jerez , [...] MDOther ProviderActiveStart: January 13, 2025 Phillip Duran DOOther ProviderActiveStart: January 13, 2025 Leno Dela Cruz MDOther ProviderActiveStart: January 13, 2025 Cici Reilly MDOther ProviderActiveStart: January 13, 2025 Ericka Otto APRNOther ProviderActiveStart: January 13, 2025 Talia Pinedo MDOther ProviderActiveStart: January 13, 2025 Clayton Ramsey MDOther ProviderActiveStart: January 13, 2025 Dewayne Akbar MDOther ProviderActiveStart: January 13, 2025 Josemanuel Talavera MDOther ProviderActiveStart: January 13, 2025 Mary Pichardo , APRNOther ProviderActiveStart: January 13, 2025 Shon Negron APRNOther ProviderActiveStart: January 13, 2025 Fanta Thapa RNOther ProviderActiveStart: January 13, 2025 Kike Pollack MDOther ProviderActiveStart: January 13, 2025 Elizabeth Monroe NP-COther ProviderActiveStart: January 13, 2025 Carie Abraham MDOther ProviderActiveStart: January 13, 2025 Raimundo Mcclure MDOther ProviderActiveStart: January 13, 2025 Team Status: Inactive Member Role Status Dates Jose Juarez JR DO Primary Care Provider Active Start: February 01, 2025 End: February 01, 2025Francoise Krishnaending ProviderActiveStart: February 01, 2025 End: February 01, 2025 Team Status: Inactive Member Role Status Dates Chino Elliott DPM MS Attending Provider Active Start: October 26, 2024 End: October 26, 2024 Team Status: Active Member Role Status Dates Jose Juarez JR DO Primary Care Provider Active Start: December 23, 2024 Enrique Yang MDAdmnicole ProviderActiveStart: December 23, 2024 Leno Dela Cruz MDOther ProviderActiveStart: December 23, 2024 Danilo Chavira ProviderActiveStart: December 23, 2024 Love Moody LPNOther ProviderActiveStart: December 23, 2024 Ari Batista MDAttending ProviderActiveStart: December 23, 2024 Daniol Pack ProviderActiveStart: December 23, 2024 Alyssia Batista , O[employer] FARMER-COther ProviderActiveStart: December 23, 2024 Nima Lee MDOther ProviderActiveStart: December 23, 2024 Benjamin Patterson MDOther ProviderActiveStart: December 23, 2024 Luis Enrique Arora MDOther ProviderActiveStart: December 23, 2024 Nir Shah II, MDOther ProviderActiveStart: December 23, 2024 Clayton Cardenas MDOther ProviderActiveStart: December 23, 2024 Aleta Jensen , APRNOther ProviderActiveStart: December 23, 2024 Doc Shankar MDOther ProviderActiveStart: December 23, 2024 Liza Rod MDOther ProviderActiveStart: December 23, 2024 Team Status: Active Member Role Status Dates Jose Juarez JR DO Primary Care Provider Active Start: December 30, 2024 Aleah Perdomo ProviderActiveStart: December 30, 2024 Carie Abraham MDOther ProviderActiveStart: December 30, 2024 Love Moody LPNOther ProviderActiveStart: December 30, 2024 Ari Batista MDOther ProviderActiveStart: December 30, 2024 Alyssia Batista , O[employer] FARMER-COther ProviderActiveStart: December 30, 2024 Nima Lee MDOther ProviderActiveStart: December 30, 2024 Benjamin Patterson MDOther ProviderActiveStart: December 30, 2024 Luis Enrique Arora MDOther ProviderActiveStart: December 30, 2024 Nir Shah II, MDOther ProviderActiveStart: December 30, 2024 Phillip Duran DOOther ProviderActiveStart: December 30, 2024 Mya Callahan MDOther ProviderActiveStart: December 30, 2024 Clayton Cardenas MDOther ProviderActiveStart: December 30, 2024 Aleta Jensen APRNOther ProviderActiveStart: December 30, 2024 Doc Shankar MDOther ProviderActiveStart: December 30, 2024 Raimundo Mcclure MDAttending ProviderActiveStart: December 30, 2024 Team MemberRelationshipSpecialtyStart DateEnd Date Jose Juarez Jr., DO [address] [place] [phone] PCP - GeneralInternal Yrjoualc79/15/17 Team Status: Inactive Member Role Status Dates Chino Elliott DPM MS Attending Provider Active Start: August 28, 2024 End: August 28, 2024Team MemberRelationshipSpecialtyStart DateEnd Date Jose Juarez Jr., DO [address] [place] [id number] PCP - GeneralInternal Vvwbbpcy04/15/17Team MemberRelationshipSpecialtyStart Date End Date Jose Juarez Jr., DO [address] [place] [phone] PCP - GeneralInternal Yvcghckc55/15/17Team MemberRelationshipSpecialtyStart Date End Date Jose Juarez Jr., DO [address] [place] [phone] PCP - GeneralInternal Oqfbkqrk97/15/17Team MemberRelationshipSpecialtyStart Date End Date Jose Juarez Jr., DO [address] [place] [address] [id number] PCP - GeneralInternal Dybmktjj50/15/17Team MemberRelationshipSpecialtyStart Date End Date Jose Juarez MD [address] [place] [id number] PCP - GeneralInternal Medicine09/07/24Team MemberRelationshipSpecialtyStart Date End Date Jose Juarez Jr., DO [address] [place] [address] [phone] PCP - GeneralInternal Bigjfbfz60/15/17 FOR RECORDS PERTAINING TO PATIENTS WHO ARE [...] BE BASED ON THE PRIMARY CLINICAL RECORDS. [facility]. provides no warranty or guarantee of the accuracy or completeness of information in this document.
== END 2025-03-15 09:40 | disposition home or self-care (01) ==
LOC: RAD 09:39
PROVIDERS: PCP Internal Medicine; Visit Provider Orthopaedic Surgery Orthopaedic Trauma
DX: M25.561 Pain in right knee (principal); S52.501A Unspecified fracture of the lower end of right radius, initial encounter for closed fracture; M85.88 Other specified disorders of bone density and structure, other site; S72.141D Displaced intertrochanteric fracture of right femur, subsequent encounter for closed fracture with routine healing
CPT/HCPCS: 73110; 73501; 73564

== ENCOUNTER 2025-03-17 11:58 | Outpatient (OUT) | payer BC, SELFPAY ==
--- OUTSIDE RECORDS SUMMARY | 2025-03-15 05:57 | XMS_ITS | Continuity of Care Document ---
Author Organization [facility] Address [address] [place] [address] Phone Care Team Providers Care Salon Supervisor Name Role Phone ReannanikolayJose JR Primary Care Provider Enrique Yang MD Admit Provider Leno Dela Cruz MD Other Provider [phone] Nurys Abraham Other Provider Love Moody LPN Other Provider Unavailable Ari Batista MD Attending Provider [phone] Ari Batista MD Other Provider [phone] Alyssia Jacobo STAFF TECHNOLOGIST-C Other Provider [phone] Nima Lee MD Other Provider [phone] Benjamin Patterson MD Other Provider Luis Enrique Arora MD Other Provider Kiran Shah II, MD Other Provider Phillip Duran DO Other Provider Mya Callahan MD Other Provider Clayton Cardenas MD Other Provider Aleta Jensen APRN Other Provider Doc Shankar MD Other Provider Raimundo Mcclure MD Attending Provider [phone] Clayton Cardenas MD Admit Provider Clatyon Cardenas MD Attending Provider Marlena Quintero RN Other Provider Unavailable Yudy Richter RN Other Provider Unavailable Denise Gold RN Other Provider Unavailable Diana Douglass RN Other Provider Unavailable Meme Cochran RN Other Provider Unavailable Brigitte Cardenas RN Other Provider Unavailable Sukumar Patricio MD Other Provider Doug Joseph DO Other Provider Dinesh Cervantes MD Other Provider Eugene Morel DO Other Provider Enrique Yang MD Other Provider Liza Rod MD Other Provider Bryan Cordova DO Other Provider Unavailab Dewayne Rojas MD Other Provider Unavailable Ita Orellana BRICK PAVER Other Provider Vishal Aguirre MD Other Provider [phone] Krystal Rodriguez MD Other Provider Unavailable Henrry Manning MD Other Provider Bryan James DO Other Provider Idalia Bryan MD Other Provider Nazario Baez MD Other Provider Patricia Carmona STAFF TECHNOLOGIST-C Other Provider [phone] Nick Jerez BRICK PAVER Other Provider Unavailable Toribio Best MD Other Provider David Houston MD Other Provider Ac Tineo MD Other Provider Unavailable Son Hampton DO Other Provider Ghislaine Fields BRICK PAVER Other Provider Zaid June DO Other Provider Luz Maria Gamble MD Other Provider Angelina Ren BRICK PAVER Other Provider Stefany Herring BRICK PAVER Other Provider Willian Soto MD Other Provider Unavailable Jerry Butler MD Other Provider Cici Reilly MD Other Provider Ericka Otto BRICK PAVER Other Provider Unavailable Talia Pinedo MD Other Provider Clayton Ramsey MD Other Provider Dewayne Akbar MD Other Provider [phone] Josemanuel Talavera MD Other Provider Mary Pichardo BRICK PAVER Other Provider Shon Negron BRICK PAVER Other Provider Fanta Thapa RN Other Provider Unavailable Kike Pollack MD Other Provider Elizabeth Monroe STAFF TECHNOLOGIST-C Other Provider Unavailable Raimundo Mcclure MD Other Provider Aleta Jensen BRICK PAVER Attending Provider Wilfrido Montez DO Attending Provider Nurys Abraham Attending Provider [phone] Care Teams Patient Care Team Team Status: Active Member Role/Relationship Status Dates Jose Baron JR DO Primary Care Provider Active Visit Care Team Team Status: Active Member Role/Relationship Status Dates Jose Baron JR DO Primary Care Provider Active Start: December 23, 2024 Vikash Perdomoit ProviderActiveStart: December 23, 2024 Leno Dela Cruz MDOther ProviderActiveStart: December 23, 2024 Carie Abraham MDOther ProviderActiveStart: December 23, 2024 Love Gilbert , LPNOther ProviderActiveStart: December 23, 2024 Ari Batista MDAttending ProviderActiveStart: December 23, 2024 Danilo Pack ProviderActiveStart: December 23, 2024 Alyssia Jacobo , STAFF TECHNOLOGIST-COther ProviderActiveStart: December 23, 2024 Danilo Melo ProviderActiveStart: December 23, 2024 Benjamin Patterson MDOther ProviderActiveStart: December 23, 2024 Luis Enrique Arora MDOther ProviderActiveStart: December 23, 2024 Kiran Shah II, MDOther ProviderActiveStart: December 23, 2024 Danilo Sun ProviderActiveStart: December 23, 2024 Aleta Jensen , APRNOt ProviderActiveStart: December 23, 2024 Danilo Chávez ProviderActiveStart: December 23, 2024 Liza Rod MDOther ProviderActiveStart: December 23, 2024 Visit Care Team Team Status: Active Member Role/Relationship Status Dates Jose Baron JR DO Primary Care Provider Active Start: December 30, 2024 Enrique Yang MDAdmit ProviderActiveStart: December 30, 2024 Carie Abraham MDOther ProviderActiveStart: December 30, 2024 Love Moody , LPNOther ProviderActiveStart: December 30, 2024 Ari Batista MDOther ProviderActiveStart: December 30, 2024 Alyssia Jacobo , STAFF TECHNOLOGIST-COther ProviderActiveStart: December 30, 2024 Niam Lee MDOther ProviderActiveStart: December 30, 2024 Benjamin Patterson MDOther ProviderActiveStart: December 30, 2024 Luis Enrique Arora MDOther ProviderActiveStart: December 30, 2024 Kiran Shah II, MDOther ProviderActiveStart: December 30, 2024 Phillip Durna DOOther ProviderActiveStart: December 30, 2024 Mya Callahan MDOther ProviderActiveStart: December 30, 2024 Danilo Sun ProviderActiveStart: December 30, 2024 Aleta Jensen , APRNOther ProviderActiveStart: December 30, 2024 Doc Shankar MDOther ProviderActiveStart: December 30, 2024 Raimundo Mcclure MDAttending ProviderActiveStart: December 30, 2024 Visit Care Team Team Status: Active Member Role/Relationship Status Dates Jose Baron JR DO Primary Care Provider Active Start: December 30, 2024 Aleah Sun ProviderActiveStart: December 30, 2024 Rachel Sun ProviderActiveStart: December 30, 2024 Clayton Cardenas MDOther ProviderActiveStart: December 30, 2024 Marlena Quintero , JOANNEOther ProviderActiveStart: December 30, 2024 Yudy Richter , JOANNEOther ProviderActiveStart: December 30, 2024 Denise Gold , RNOther ProviderActiveStart: December 30, 2024 Diana Douglass , JOANNEOther ProviderActiveStart: December 30, 2024 Meme Cochran , JOANNEOther ProviderActiveStart: December 30, 2024 Brigitte Cardenas , JOANNEOther ProviderActiveStart: December 30, 2024 Sukumar Patricio MDOther ProviderActiveStart: December 30, 2024 Doug Joseph , DOOther ProviderActiveStart: December 30, 2024 Dinesh Cervantes MDOther ProviderActiveStart: December 30, 2024 Eugene Morel , DOOther ProviderActiveStart: December 30, 2024 Enrique Yang MDOther ProviderActiveStart: December 30, 2024 Liza Rod MDOther ProviderActiveStart: December 30, 2024 Bryan Cordova DOOther ProviderActiveStart: December 30, 2024 Dewayne Godwin MDOther ProviderActiveStart: December 30, 2024 Ita Orellana , APRNOther ProviderActiveStart: December 30, 2024 Vishal Aguirre MDOther ProviderActiveStart: December 30, 2024 Krystal Rodriguez MDOther ProviderActiveStart: December 30, 2024 Henrry Manning MDOther ProviderActiveStart: December 30, 2024 Bryan James DOOther ProviderActiveStart: December 30, 2024 Idalia Bryan MDOther ProviderActiveStart: December 30, 2024 Nazario Baez MDOther ProviderActiveStart: December 30, 2024 Patricia Carmona , STAFF TECHNOLOGIST-COther ProviderActiveStart: December 30, 2024 Nick Jerez , APRNOther ProviderActiveStart: December 30, 2024 Toribio Best MDOther ProviderActiveStart: December 30, 2024 David Houston MDOther ProviderActiveStart: December 30, 2024 Ac Tineo MDOther ProviderActiveStart: December 30, 2024 Son Hampton , DOOther ProviderActiveStart: December 30, 2024 Ghislaine Fields , APRNOther ProviderActiveStart: December 30, 2024 Zaid June , DOOther ProviderActiveStart: December 30, 2024 Luz Maria Gamble MDOther ProviderActiveStart: December 30, 2024 Angelina Ren , APRNOther ProviderActiveStart: December 30, 2024 Stefany Herring , APRNOther ProviderActiveStart: December 30, 2024 Willian Soto MDOther ProviderActiveStart: December 30, 2024 Jerry Butler MDOther ProviderActiveStart: December 30, 2024 Phillip Duran , DOOther ProviderActiveStart: December 30, 2024 Leno Dela Cruz MDOther ProviderActiveStart: December 30, 2024 Cici Reilly MDOther ProviderActiveStart: December 30, 2024 Ericka Otto , APRNOther ProviderActiveStart: December 30, 2024 Talia Pinedo MDOther ProviderActiveStart: December 30, 2024 Clayton Ramsey MDOther ProviderActiveStart: December 30, 2024 Dewayne Akbar MDOther ProviderActiveStart: December 30, 2024 Josemanuel Talavera MDOther ProviderActiveStart: December 30, 2024 Mary Pichardo , APRNOther ProviderActiveStart: December 30, 2024 Shon Negron , APRNOther ProviderActiveStart: December 30, 2024 Fanta Thapa RNOther ProviderActiveStart: December 30, 2024 Kike Pollack MDOther ProviderActiveStart: December 30, 2024 Elizabeth Monroe STAFF TECHNOLOGIST-COther ProviderActiveStart: December 30, 2024 Carie Abraham MDOther ProviderActiveStart: December 30, 2024 Raimundo Mcclure MDOther ProviderActiveStart: December 30, 2024 Visit Care Team Team Status: Active Member Role/Relationship Status Dates Jose Baron JR DO Primary Care Provider Active Start: January 06, 2025 Aleah Sun ProviderActiveStart: January 06, 2025 Clayton Cardenas MDOther ProviderActiveStart: January 06, 2025 Marlena Quintero , JOANNEOther ProviderActiveStart: January 06, 2025 Yudy Richter , JOANNEOther ProviderActiveStart: January 06, 2025 Denise Gold , JOANNEOther ProviderActiveStart: January 06, 2025 Diana Douglass , JOANNEOther ProviderActiveStart: January 06, 2025 Meme Cochran , JOANNEOther ProviderActiveStart: January 06, 2025 Brigitte Cardenas , JOANNEOther ProviderActiveStart: January 06, 2025 Sukumar Patricio MDOther ProviderActiveStart: January 06, 2025 Doug Joseph DOOther ProviderActiveStart: January 06, 2025 Dinesh Cervantes MDOther ProviderActiveStart: January 06, 2025 Eugene Morel DOOther ProviderActiveStart: January 06, 2025 Enrique Yang MDOther ProviderActiveStart: January 06, 2025 Liza Rod MDOther ProviderActiveStart: January 06, 2025 Bryan Cordova DOOther ProviderActiveStart: January 06, 2025 Dewayne Godwin MDOther ProviderActiveStart: January 06, 2025 Ita Orellana , APRNOther ProviderActiveStart: January 06, 2025 Vishal Aguirre MDOther ProviderActiveStart: January 06, 2025 Krystal Rodriguez MDOther ProviderActiveStart: January 06, 2025 Henrry Manning MDOther ProviderActiveStart: January 06, 2025 Bryan James DOOther ProviderActiveStart: January 06, 2025 Idalia Bryan MDOther ProviderActiveStart: January 06, 2025 Nazario Baez MDOther ProviderActiveStart: January 06, 2025 Patricia Carmona , STAFF TECHNOLOGIST-COther ProviderActiveStart: January 06, 2025 Nick Jerez , APRNOther ProviderActiveStart: January 06, 2025 Toribio Best MDOther ProviderActiveStart: January 06, 2025 David Houston MDOther ProviderActiveStart: January 06, 2025 Ac Tineo MDOther ProviderActiveStart: January 06, 2025 Son Hampton , DOOther ProviderActiveStart: January 06, 2025 Ghislaine Fields , APRNOther ProviderActiveStart: January 06, 2025 Zaid June , DOOther ProviderActiveStart: January 06, 2025 Luz Maria Gamble MDOther ProviderActiveStart: January 06, 2025 Angelina Ren , APRNOther ProviderActiveStart: January 06, 2025 Stefany Herring , APRNOther ProviderActiveStart: January 06, 2025 Willian Soto MDOther ProviderActiveStart: January 06, 2025 Jerry Butler MDOther ProviderActiveStart: January 06, 2025 Phillip Duran , DOOther ProviderActiveStart: January 06, 2025 Leno Dela Cruz MDOther ProviderActiveStart: January 06, 2025 Cici Reilly MDOther ProviderActiveStart: January 06, 2025 Ericka Otto , APRNOther ProviderActiveStart: January 06, 2025 Talia Pinedo MDOther ProviderActiveStart: January 06, 2025 Clayton Ramsey MDOther ProviderActiveStart: January 06, 2025 Dewayne Akbar MDOther ProviderActiveStart: January 06, 2025 Josemanuel Talavera MDOther ProviderActiveStart: January 06, 2025 Mary Pichardo , APRNOther ProviderActiveStart: January 06, 2025 Shon Negron , APRNOther ProviderActiveStart: January 06, 2025 Fanta Thapa RNOther ProviderActiveStart: January 06, 2025 Kike Pollack MDOther ProviderActiveStart: January 06, 2025 Elizabeth Monroe NP-Williamher ProviderActiveStart: January 06, 2025 Carie Abraham MDOther ProviderActiveStart: January 06, 2025 Raimundo Mcclure MDOther ProviderActiveStart: January 06, 2025 Aleta Turovskaya , APRNAttending ProviderActiveStart: January 06, 2025 Visit Care Team Team Status: Active Member Role/Relationship Status Dates Jose Baron JR DO Primary Care Provider Active Start: January 13, 2025 Clayton Cardenas MDAdmit ProviderActiveStart: January 13, 2025 Clayton Cardenas MDAttending ProviderActiveStart: January 13, 2025 Clayton Cardenas MDOther ProviderActiveStart: January 13, 2025 Marlena Quintero , JOANNEOther ProviderActiveStart: January 13, 2025 Yudy Richter , RNOther ProviderActiveStart: January 13, 2025 Denise Gold , JOANNEOther ProviderActiveStart: January 13, 2025 Diana Douglass , JOANNEOther ProviderActiveStart: January 13, 2025 Meme Cochran , JOANNEOther ProviderActiveStart: January 13, 2025 Brigitte Cardenas , JOANNEOther ProviderActiveStart: January 13, 2025 Sukumar Patricio MDOther ProviderActiveStart: January 13, 2025 Doug Joseph , DOOther ProviderActiveStart: January 13, 2025 Dinesh Cervantes MDOther ProviderActiveStart: January 13, 2025 Eugene Morel DOOther ProviderActiveStart: January 13, 2025 Enrique Yang MDOther ProviderActiveStart: January 13, 2025 Liza Rod MDOther ProviderActiveStart: January 13, 2025 Bryan Cordova DOOther ProviderActiveStart: January 13, 2025 Dewayne Godwin MDOther ProviderActiveStart: January 13, 2025 Ita Orellana , APRNOther ProviderActiveStart: January 13, 2025 Vishal Aguirre MDOther ProviderActiveStart: January 13, 2025 Krystal Rodriguez MDOther ProviderActiveStart: January 13, 2025 Henrry Manning MDOther ProviderActiveStart: January 13, 2025 Bryan James DOOther ProviderActiveStart: January 13, 2025 Idalia Bryan MDOther ProviderActiveStart: January 13, 2025 Nazario Baez MDOther ProviderActiveStart: January 13, 2025 Patricia Carmona NP-COther ProviderActiveStart: January 13, 2025 Nick Jerez , APRNOther ProviderActiveStart: January 13, 2025 Toribio Best MDOther ProviderActiveStart: January 13, 2025 David Houston MDOther ProviderActiveStart: January 13, 2025 Ac Tineo MDOther ProviderActiveStart: January 13, 2025 Son Hampton , DOOther ProviderActiveStart: January 13, 2025 Ghislaine Fields , APRNOther ProviderActiveStart: January 13, 2025 Zaid June , DOOther ProviderActiveStart: January 13, 2025 Luz Maria Gamble MDOther ProviderActiveStart: January 13, 2025 Angelina Ren , APRNOther ProviderActiveStart: January 13, 2025 Stefany Herring , APRNOther ProviderActiveStart: January 13, 2025 Willian Soto MDOther ProviderActiveStart: January 13, 2025 Jerry Butler MDOther ProviderActiveStart: January 13, 2025 Phillip Duran , DOOther ProviderActiveStart: January 13, 2025 Leno Dela Cruz MDOther ProviderActiveStart: January 13, 2025 Cici Reilly MDOther ProviderActiveStart: January 13, 2025 Ericka Otto , APRNOther ProviderActiveStart: January 13, 2025 Talia Pinedo MDOther ProviderActiveStart: January 13, 2025 Clayton Ramsey MDOther ProviderActiveStart: January 13, 2025 Dewayne Akbar MDOther ProviderActiveStart: January 13, 2025 Josemanuel Talavera MDOther ProviderActiveStart: January 13, 2025 Mary Pichardo APRNOther ProviderActiveStart: January 13, 2025 Shon Negron APRNOther ProviderActiveStart: January 13, 2025 Fanta Thapa RNOther ProviderActiveStart: January 13, 2025 Kike Pollack MDOther ProviderActiveStart: January 13, 2025 Yaneli Kaur ProviderActiveStart: January 13, 2025 Danilo Chavira ProviderActiveStart: January 13, 2025 Raimundo Mcclure MDOther ProviderActiveStart: January 13, 2025 Visit Care Team Team Status: Active Member Role/Relationship Status Dates Jose Baron JR DO Primary Care Provider Active Start: January 22, 2025 Rachel Berg ProviderActiveStart: January 22, 2025 Visit Care Team Team Status: Inactive Member Role/Relationship Status Dates Jose Baron JR DO Primary Care Provider Active Start: February 01, 2025 End: February 01, 2025JuWilma Adames ProviderActiveStart: February 01, 2025 End: February 01, 2025 Visit Care Team Team Status: Active Member Role/Relationship Status Dates Jose Baron JR DO Primary Care Provider Active Start: February 24, 2025 Whitney Chaviraending ProviderActiveStart: February 24, 2025 Patient Care Team Team Status: Inactive Member Role/Relationship Status Dates Jose Baron JR DO Primary Care Provider Active Start: March 15, 2025 End: March 15, 2025Wilfrido Montez DOAttending ProviderActiveStart: March 15, 2025 End: March 15, 2025 Chief Complaint and Reason for Visit Chief Complaint Admit Date right hip fracture, [...] HOSP F/U February 01, 2025 10 :59am [facility] 3 WEEKS March 15, 2025 10:54am Reason for Visit Admit Date MARISOL (acute [...] 2024 4:06pm GERD (gastroesophageal reflux disease) S [facility] 2024 4:06pm Hypertension December 30, 2024 4:06pm Intertrochanteric fracture of right hip February 01, 2025 10:59am Radius distal fracture February 01, 2025 10:59am 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 February 01, 2025 10:59am Other specified postprocedural states Oc tober 2024 10:59am Intertrochanteric fracture of right hip March 15, 2025 10:54am Radius distal fracture March 15 10:54am 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 [address]Puduqz follow post-op orders.Natali Krishna Phone: [phone] [facility] [address]Zjaf to schedule follow up appointment with Nephrology per your routine scheduleFPG - NephrologyWork Phone: [phone] [facility] [address]Xabj to schedule follow up appointment with PCP after discharge Jr Natali Johnson Phone: [phone] [facility] [address]Jjpnsr up with rehab physician as neededClayton Cardenas MDWork Phone: [phone] [employer] [facility] [address]Skbo to schedule follow up appointment with surgeon after dischargeJuNatali Adames Phone: [phone] [facility] CenterReesioBlue [facility] [address] Allergies, Adverse Reactions, Alerts Allergen Type Severity Reaction Last Updated Verified Status aspirin Allergy Unknown bad for kidney February 272024 10:35am Yes Active celecoxib Allergy Unknown Difficulty [place] thing, bad for kidney March 15, 2025 10:35am Yes Active Social History Smoking Status Status Start Date End Date Date of Observa tion Ex-smoker (finding) December 31, 2024 5:24pm Observation Status Observation Response Date of Response Legal Sex Male (finding) Sex Assigned At BirthMaleOctober 1959 Social History Assessments Assessment Value Date Recorded SDOH Follow up January 15, 2025 8:24amQuestionAnswerDate RecordedHas the SDOH screening changed since admission?NSeptember 2024 8:24am Family History Relationship Condition Age at Onset Recorded Date/T tristan Not Specified Hypertension Unknown fatherDeceasedUnknownmotherDiabetes mellitusUnknownHeart diseaseUnknown Problems Active Problems Problem Diagnosis/Recorded Date Onset Date Stat us MARISOL (acute kidney injury) December 31, 2018 4:26pm U nknown Active End-stage renal disease need ing dialysis December 24, 2024 7:46am Unknown Active 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 December 31, 2018 4:29pm Unknown Active 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 September 30, 2017 8:16pm Unknown Active History of pleural effusion August 20, 2020 2:22pm Un known Active Group B streptococcal infection November 11, 2017 9:48am Unknown Active Diabetic neuropathy December 31, 2024 3:01pm Unknown Active 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 September 30, 2017 7:49pm Unknown Active Hip fracture December 23, 2024 4:36am Unknown Act ceci Pleuritic chest pain August 20, 2020 2:23pm Unknown Active Diabetes September 30, 2017 7:49pm Unknown Active Obesities, morbid September 30, 2017 7:49pm Unknown A ctive Pericarditis August 21, 2020 10:57am Unknown Act ceci Hypertensive kidney disease with chronic kidney disease stage V December 23, 2024 12:17pm Unknown Act ceci CKD (chronic kidney disease) stage 5, GFR less than 15 ml/min December 23, 2024 12:16pm Unknown Active MRSA infection January 05, 2019 10:52am Unknown Active Psoriasis January 05, 2019 10:58am Unknown Active Radius distal fracture December 24, 2024 6:23am Unknow n Active COPD (chronic obstructive pu lmonary disease) September 30, 2017 7:49pm Unknown Active Pre-operative cardiovascular examination December 23, 2024 11:48am Unknown Active Fibrothorax August 20, 2020 2:22pm Unknown Acti ve Metabolic acidosis August 22, 2020 12:22pm Unknown Active Peripheral vascular occlusive disease October 01, 2017 2 :49pm Unknown Active GERD (gastroesophageal reflux disease) September 30, 2017 7:49pm Unknown Active Anemia of renal disease August 22, 2020 12:15pm Unkno wn Active Atelectasis of left lung August 20, 2020 2:23pm Unkno wn Active Hypertension September 30, 2017 7:49pm Unknown Active Intertrochanteric fracture of right hip December 25 9:44am Unknown Active Hyperkalemia December 23, 2024 12:04pm Unknown Ac tive Medications Medication Status Dose Units Route Directions Qty Days Refills S tart Date Stop Date End Date Reason(s) Instructions Adherence Sodium Bicarbonate 325 mg Tablet Discontinued 325 MG PO Twice daily November 07, 2017 11:00pmApril 2020 11:34amInsulin Lispro (Humalog Kwikpen Insulin) 100 unit/mL insulin sczFlblwrwrhhle30EWZUBJVADOKQQQG TIMES DAILY WITH MEALSJuly 2017 12:37pmSeptember 2018 2:11pmInsulin Degludec (Tresiba Flextouch U-100) 100 unit/mL (3 mL) insulin qjoHshrjlegjdll009XCBPXXLLMAIhhsy November 08, 2017 12:37pmSeptember 2024 11:20amAmoxicillin-Pot Clavulanate (Augmentin) 500-125 mg olqcrrRthkjvedzxys0DMWHWW9V79961Jdhy 2017 11:00pm November 24, 2017 11:00pmJuly 2017 11:01pmOxycodone-Acetaminophen (Percocet) 5-325 mg rpkkawFaumxcqqauvp2XSPYHP9Y as needed for pain (scale score 7-10)2460 November 12pt2018 2:12pmStatus post foot surgery Other specified postprocedural statesDoxycycline Hyclate 100 mg capsule Dkdgugiciqvz257UYWFQpqec cztmc17822Bgtj 2017 11:00pmAugust 2017 11:00pmAugust 2017 11:01pmFamotidine (Pepcid) 40 mg MnjigvCckmex49DOFC BedtimeApril 2020 11:00pmComplies with drug therapyGabapentin 800 mg bpswqbEfcrfavvjmzw179KBDFBjivz dailyApril 2020 11:00pmApril 2020 11:34amHydralazine 100 mg cpysaaXwwjygvpgldo646SCCUQwqcz times dailyApril 2020 11:00pmSeptember 2024 11:20amEsomeprazole Magnesium 40 mg capsule,delayed release(DR/EC)Wqlkdedfulcx37VTHZUdlmzEhzxu 2020 11:00pm December 29, 2024 11:20amRosuvastatin (Crestor) 40 mg TierozXpdcsnwkueil53ZCJX DailyApril 2020 11:00pmApril 2020 11:34amDuloxetine (Cymbalta) 60 mg Capsule,Delayed Release(Dr/Ec)Kztcfj44SDKKLabhqXnbil 2020 11:00pmComplies with drug therapyCholecalciferol (Vitamin D3) (Vitamin D3) 125 mcg (5,000 unit) RgpfyaKzlpnhujlegy977JWKRDOqfohLgowv 2020 11:00pmApril 2020 11:34am Magnesium Oxide 400 mg magnesium KddpfxIhfgclhlntyo544HTOBHhxaxUrssu 2020 11:00pmSeptember 2024 11:20amB Complex And C 20-Folic Acid (Renal Caps) 1 mg MbbdyaxZzhndi3EXSRQSgngyTtezy 2020 11:00pmComplies with drug therapy Apremilast (Otezla) 30 mg VrufnsYklwwvontxrl75RGDEIzmrrPnwwd 2020 11:00pm December 29, 2024 11:20amAtorvastatin 40 mg SdfdcpKicbflzafvgu30TMOKFuvyo leorlmz120647Rrvou 2020 11:00pmSeptember 2024 11:23am Methylprednisolone (Medrol (Sukh)) 4 mg tablets,dose hlzvTzxwvxcchfzx3JF.COMPLEX 210April 2020 11:00pmSept2024 11:20amorally per package directionsSevelamer Carbonate 800 mg NpqgskLomoym420MOFY7x/Day with gireu448 August 24, 2020 11:00pmComplies with drug therapyFurosemide 40 mg Tablet Khpljmpmfwyx25TRJKNPV@0800,619463360Gqwqo 2020 11:00pmSept2024 11:20amPotassium Chloride (Klor-Con 10) 10 mEq Tablet Extended Release Ldsbqqueuqdp15YMNLFPhvku47431Ouvct 2020 11:00pmSeptember 2024 11:20am Ferrous Sulfate 325 mg (65 mg iron) jpvqufTbrephvtokvt135FCKMQwtlm 48 qnydn624 August 24, 2020 11:00pmDecember 29, 2024 11:20amFinerenone (Kerendia) 20 mg njvaivMcntre90NGPXLtxfnRtnyos 26th, 2025 11:00pmComplies with drug therapySodium Bicarbonate 325 mg pvfvnzBzvzizkaioxi711TBUUBcehq times [facility]20[facility] 11:00pmpt2024 11:24amRosuvastatin 20 mg bqbeyzLrsjei20OJBZJjtrwxq December 22, 2024 11:00pmComplies with drug therapyMultivit With Wmu-Cq-Ryvkezyw (One-A-Day Men's 50 Plus) 400-370 mcg djmfhbPlnrwk1EAFETKvriyHavqzw 26th, 2025 11:00pmComplies with drug therapyEmpagliflozin (Jardiance) 25 mg tablet Fbmisqirsjpt36UOTVMjuupPwippa 26th, 2025 11:00pmJanuary 15, 2025 11:23amOn Hold: Plan to hold permanently given HD status per nephrologyInsulin Aspart U- 100 (Novolog U-100 Insulin Aspart) 100 unit/mL ckuzuyweIoeltoipbsua5dkdtzsl scale doseSUBCUTAs DirectedDecember 22, 2024 11:00pmJanuary 15, 2025 11:24am Insulin Detemir U-100 100 unit/mL (3 mL) insulin gsdKgryuepibgju68CHLTPBHMEL [facility]2024 11:00pmDecember 29, 2024 11:20amBupropion Hcl 300 mg tablet extended release 24 cbHjhhvf855KZSBAhfphWobned 26th, 2025 11:00pmComplies with drug therapyHydralazine 25 mg XaiyzcCbeeoxbrzxas29WBQUCapzq times ucohw77492024 11:00pmpt2024 11:23amInsulin Glargine (Lantus Solostar U-100 Insulin) 100 unit/mL (3 mL) Insulin RpePiwwznkteant77QTZAWCQQNB Vhoqm51014Fgvdhgrks2024 11:002024 11:23amInsulin Aspart U-100 100 unit/mL (3 mL) Insulin YgeWygksnfyxjfr2ETOQTRCSZA2Z/Day with meals and bedtime Protocol: *If the corrective scale dose has been administered within the past 4 hours, do not use corrective scale again unless approved by prescriber* Condition: Corrective Scale #2 (TDI 26-50 UNITS) Condition: Dose/Route: Instructions: Condition: Fingerstick Blood Glucose Dose/Route: Insulin Units Condition: 150-199 mg/dl Dose/Route: 2 unit Condition: 200-249 mg/dl Dose/Route: 3 unit Condition: 250-299 mg/dl Dose/Route: 5 unit Condition: 300-349 mg/dl Dose/Route: 7 unit Condition: 350-399 mg/dl Dose/Route: 8 unit Condition: greater than or = 400 mg/dl Dose/Route: 9 unit Instructions: Call Mgipzjeh26409Wgenndbgj2024 11:002024 11:24amPlease contact the information source for Protocol details.Albuterol Sulfate 90 mcg/actuation Hfa Aerosol WiqgtdpIoyzbfqijlyn4FUEJYDMRIXARQEY7I as needed for Shortness Of BreathJune 2017 11:00pmJuly 2017 12:23pm Bumetanide 2 mg LcboyuYbkmepnrccif6XRIBMgjnmJgbc 2017 11:00pmSeptember 2018 2:05pmCalcium Acetate(Phosphat Bind) 667 mg ZsrdwydEaccpyneuqjb610RQFATKZZC TIMES DAILY WITH MEALSJune 2017 11:00pmApril 2020 11:34amDocusate Sodium (Colace) 100 mg GzldqiqIyuxxentgtcq489BHZANhrdm dailyJune 2017 11:00pmJuly 2017 12:27pmDuloxetine 30 mg capsule,delayed release(DR/EC) Zrhpzchgabnn83LKBTQuaqykhYvoq 2017 11:00pmSept2018 2:08pm Gabapentin 600 mg hdinmmYisvddcijgux405NDVSDyaaz dailyJune 2017 11:00pm December 31, 2018 2:10pmHydrocodone-Acetaminophen 5-325 mg tabletDiscontinued5 VGKDZ9L as needed for PainJune 2017 11:00pmJuly 2017 10:43amInsulin Degludec (Tresiba Flextouch U-200) 200 unit/mL (3 mL) insulin vtgNbuoljorlinj835 UNITSUBCUTDailyJun2017 11:00pmJun2017 11:34amInsulin Glargine- Lixisenatide (Soliqua 100/33) 100 unit-33 mcg/mL Insulin OnmOdnlidxtjych48KUFT SUBCUTDaJun2017 11:002017 12:07pmInsulin Lispro (Humalog Kwikpen Insulin) 100 unit/mL Insulin RlaTvrpuuvnedni81YLQPUUNIXYEIWCS TIMES DAILY WITH MEALSJune 2017 11:00Jun2017 12:11pmLinaclotide 145 mcg nvzmioxNaoefmkczdvp966AHNMIOjftsGdzh 2017 11:00pmJuly 2017 12:31pm Meclizine 25 mg Tablet,NoiiektqGfgaxhuysekd23DHUFDuorr 8 hours as needed for DizzinessJune 2017 11:00pmSept2024 11:20amMetolazone 10 mg xiaydcCifujfobujwk46HQCZTpgaw dailyJune 2017 11:00pmSept2018 2:12pmMontelukast 10 mg epqyvbSbyrft12WCCYBykdefgNxto 2017 11:00pmComplies with drug therapyOxcarbazepine 300 mg tmydfnIocaefgbqlsb059JDNPJuuuzkfZdtb 2017 11:00pmSept2024 11:20amPotassium Chloride 20 mEq Tablet Extended LymlkcwMnalpjjwpdmw52LUMCEZq DirectedJun2017 11:00pmSept2018 2:13pmSevelamer Hcl (Renagel) 800 mg NivxqxWwcvkoxbdjgc890YPNSJagizBihy 2017 11:00pmApril 2020 10:03amSulfamethoxazole-Trimethoprim 800-160 mg gqbsbnXtusgdwdejry9SKRIEDvprf dailySeptember 29, 2017 11:00pmJun2017 11:33am Tamsulosin (Flomax) 0.4 mg Capsule,Extended Release 43nkDhndiolodket1.4MGPODaily September 29, 2017 11:00pmJuly 2017 12:33pmVarenicline Tartrate 1 mg tablet Vioqnpkhbytf5HPKHZanhsZcns 3rd, 2018 11:00pmSept2018 1:16pmVorapaxar 2.08 mg TabletDiscontinued2.08MGPODa2017 11:00pmJuly 2017 12:36pmColesevelam (Welchol) 625 mg RvimbeBphujdjkmcwj3243XTERTNXXX DAILY WITH MEALSSeptember 29, 2017 11:00pmSept2024 11:20amTrazodone 50 mg tablet Wldkdbnilniu75WJIJTffzbfoIiky 3rd, 2018 11:00pmSept2024 11:20amB Complex And C 20-Folic Acid 1 mg gkdwedtJoyagjxrgnlf9FMIONRxnltPkcp 3rd, 2018 11:00pmJuly 2017 12:25pmAmoxicillin-Pot Clavulanate (Augmentin) 500-125 mg kazjztQonddecoiohi9UEBPHCdhjk fnrii976QvoyOctober 03, 2017 11:00pmly 2017 12:24pmInsulin Degludec (Tresiba Flextouch U-100 Insulin) 100 unit/mL (3 mL) insulin dfjMhucakzuyiwu86FZHIBAOXWHIyzmc63Brnb 7th, 2018 11:00pmJuly 2017 12:37pmInsulin Lispro (Humalog Kwikpen Insulin) 100 unit/mL Insulin Pen Nivtaslnpjgv75UTEETTQNHEURDXC TIMES DAILY WITH WWHAA56Zoqh2017 12:10pmJuly 2017 12:37pmHydrocodone-Acetaminophen 5-325 mg bvfoxcLuyasjlqvxng2OLYMHA2G as needed for PainDecember 30, 2018 11:00pmSept2018 1:16pm Sulfamethoxazole-Trimethoprim (Bactrim Ds) 800-160 mg YrewpoMfdwlllhfspy3QSJJH Twice dailyDecember 30, 2018 11:00pmSept2018 1:16pmTriamcinolone Acetonide 0.1 % ClquvSipiebflvvhn5DCGVBLCZTYILBCbdrm dailyDecember 30, 2018 11:00pmpt2024 11:20amMethotrexate Sodium 2.5 mg TabletDiscontinued 10MGPOevery 2018 11:00pmApril 2020 10:01amWednes Tamsulosin (Flomax) 0.4 mg CapsuleDiscontinued0.4MGPODailyDecember 30, 2018 11:00pmpt2024 11:20amLosartan 100 mg ZnwrfrHxdjgqljqakj170ERNUNcbrr December 30, 2018 11:00pmpt2018 1:16pmInsulin Glargine- Lixisenatide (Soliqua 100/33) 100 unit-33 mcg/mL Insulin GpzMscawhtpxrbp44HJJVF SUBCUTDailyDecember 30, 2018 11:00pmpt2024 11:20amAcetaminophen 500 mg IibjmwFublur7229HPLFGddxj times bukpt71Syzujrlnt2024 11:00pm Complies with drug therapyDocusate Sodium 100 mg AncbqzrTipzcv879DJCIBmwlh daily 2024 11:00pmComplies with drug therapyHeparin (Porcine) 5,000 unit/mL SvqwampvSjiecx3051NSOGVQGDYYJbrox 12 rqyvs87Diasswkkw2024 11:00pm Complies with drug therapyDarbepoetin Nicholas In Polysorbat (Aranesp (In Polysorbate)) 60 mcg/mL KjjcbkymKaawem44CIJKR-HVLBA7Y01Yitiydnwt 18th, 2025 11:00pmComplies with drug therapyInsulin Aspart U-100 100 unit/mL (3 mL) Insulin WjoGgbpii2FRTNZKSANO1C/Day with meals and bedtime Protocol: *If the corrective scale dose has been administered within the past 4 hours, do not use corrective scale again unless approved by prescriber* Condition: Corrective Scale #2 (TDI 26-50 UNITS) Condition: Dose/Route: Instructions: Condition: Fingerstick Blood Glucose Dose/Route: Insulin Units Condition: 150-199 mg/dl Dose/Route: 2 unit Condition: 200-249 mg/dl Dose/Route: 3 unit Condition: 250-299 mg/dl Dose/Route: 5 unit Condition: 300-349 mg/dl Dose/Route: 7 unit Condition: 350-399 mg/dl Dose/Route: 8 unit Condition: greater than or = 400 mg/dl Dose/Route: 9 unit Instructions: Call Cmngrlis72Cemtsbqbp2024 11:00pmPlease contact the information source for Protocol details.Complies with drug therapyInsulin Glargine (Lantus Solostar U-100 Insulin) 100 unit/mL (3 mL) Insulin AcnBcgncj23 QIQSGEJNGYYcjbo29Qickfvjhs 18th, 2025 11:00pmComplies with drug therapyLidocaine (Lidocaine Pain Relief) 4 % Adhesive Patch,GzvympeigZerppb4SVWGACUOGTURNdueu96 January 14, 2025 11:00pmComplies with drug therapyPolyethylene Glycol 3350 (Healthylax) 17 gram Powder In NmsnqeYtaaml53WJJZEtihu61Ugobdkizg 18th, 2025 11:00pmComplies with drug therapyMidodrine 5 mg OdlgxtAsnpvx56GJMDNawtsb breakfast and vumck47Tcjxhdskh2024 11:00pmComplies with drug therapy Nystatin (Nystop) 100,000 unit/gram XyzunuRhcyos3TVOEABQXWBHOYLnzuc dailyJanuary 14, 2025 11:00pmComplies with drug therapySodium Ferric Gluconat- Sucrose (Ferrlecit) 62.5 mg/5 mL GzakpzopKvvqqb570CICC-NKZPKf@351362Xqtutlxol2024 11:00pmComplies with drug therapyOxycodone 5 mg LxqgwpKroehl61COTX Every 6 hours as needed for Pain Scale 7 - 154663Moigeclbh5 Intertrochanteric fracture of right femurComplies with drug therapy Immunizations Immunization Event Date Not Given Reason Dose Number Administrative Services Coordinator Lot Number Reason(s) Given Vaccine Information Statement (VIS) Detail Administration Location Pneumococcal Polysacc. Vaccine, 23 valent Januar y 2015 Trivalent Influenza VaccineJanuary 2015 Medical Equipment Device Date Implanted Device Details Orthopaedic fixation plate, non-bioabsorbable, sterile December 24, 2024 ELIZABETH: ()[id number] Issuing Agency: [facility] [[email or web address]] Device Id: [id number] bone screw, non-bioabsorbable, non-sterile December 24, 2024UDI: ()[id number] Issuing Agency: [facility] [[email or web address]] Device Id: [id number] bone screw, non-bioabsorbable, non-sterile December 24, 2024UDI: ()[id number] Issuing Agency: [facility] [[email or web address]] Device Id: [id number] bone screw, non-bioabsorbable, non-sterile December 24, 2024UDI: ()[id number] Issuing Agency: [facility] [[email or web address]] Device Id: [id number] bone screw, non-bioabsorbable, non-sterile December 24, 2024UDI: ()[id number] Issuing Agency: [facility] [[email or web address]] Device Id: [id number] bone screw, non-bioabsorbable, non-sterile December 24, 2024UDI: ()[id number] Issuing Agency: [facility] [[email or web address]] Device Id: [id number] nail, sterileAugust 2024UDI: ()[id number] Issuing Agency: [facility] [[email or web address]] Device Id: [id number] Expiration Date: 2034-06-26 Lot Number: [id number] bladeAugust 2024UDI: ()[id number] Issuing Agency: [facility] [[email or web address]] Device Id: [id number] Expiration Date: 2029-06-26 Lot Number: [id number] bone screw, non-bioabsorbable, non-sterileDecember 24, 2024UDI: ()[id number] Issuing Agency: [employer] Device Id: [id number] bone screw, non-bioabsorbable, non-sterile December 24, 2024UDI: ()[id number] Issuing Agency: 1 Device Id: [id number] bone screw, non-bioabsorbable, non-sterile December 24, 2024UDI: ()[id number] Issuing Agency: [employer] Device Id: [id number] Vital Signs Vital Reading Result Reference Range Collection Date/Time Height 76 [in_i] December 24, 2024 11:31moPzbpoi362.20 kgSept2024 5:00amBody Buwucgdbxnh29.3 [degF]97.6-99.0Sept2024 1:32pmHeart Rate80 /war92-526 December 30, 2024 1:32pmRespiratory rate18 /ykq54-82ZfvudzwngDecember 30, 2024 1:32pm Oxygen saturation by Pulse lbpnexgg423 %95-100December 30, 2024 1:32pmBP Rkgskruo470 mm[Hg]100-140Sept2024 1:32pmBP Pfynpnrcr98 mm[Hg]60-100 December 30, 2024 1:32pmInhaled oxygen flow rate7 L/[facility]20[facility] 9:84fqEisnih83 [in_i]January 14, 2025 12:09dzCuzdkj150.90 kgSept2024 4:33amBody Sogvxwwiglg11.8 [degF]97.6-99.0Sept2024 8:10amHeart Rate80 /cbx75-243FwoyibpkbJanuary 15, 2025 12:22pmRespiratory rate20 /imy60-19 January 15, 2025 12:22pmOxygen saturation by Pulse mlgaoygj264 %95-100 January 15, 2025 12:22pmBP Hfyvpelp50 mm[Hg]100-140Sept2024 12:22pmBP Amhwxzmbx42 mm[Hg]60-100pt2024 12:33pwPsvhlx68 [in_i] March 15, 2025 10:89urChdxeu444.32 kgNov2024 10:36amBMI (Body Mass Index)28.0 kg/q1Iiayawnu2024 10:36am Advance Directives Advance Directive Response Recorded Date/ Time Advance Directives No September 30 8 2:34pm Insurance Providers Guarantor Mark Anthony Loredo Address [address] [facility] [id number] Info.Home Phone: Payer Group Member ID Coverage Type Subscriber Relationship to Subscriber Effective Date Expiration Date Zayra GALLAGHER Id: [id number] Hamilton Id: [id number] [place] [id number] Home Phone: Encounters Encounter Location(s) Arrival/Admit Date Discharge/Departure Date Discharge/Departure Disposition Provider(s) Non-patient / Non-visit -[facility] Vascul ar Surg December 23, 2024 2:49am Lyssa Barney-patient / Qam-jbtwe-Lkbxejfpg [facility] December 30, 2024 12:00Lyssa Davila-patient / Aig[facility]rhqyg[facility] 2024 4:06pmLyssa Sun-patient / Uui-xgbai-Sitqhzh[facility] 2024 12:00Alonso Alexander-patient / Vym-hqaca-[facility]baonvkh[facility] 2024 12:00amLyssa Sun-patient / [facility] 6:00GERALDINE Davilaeparted Physician/Provider [facility] 20[facility] 10:59amOctober 2024 12:48pmDischarged to home care or self care (routine discharge)Maame Krishna-patient / [facility] 6:00am Carie Abraham , MDDeparted Physician/Provider Office Visit-[facility] 2024 10:54amNovember 2024 10:55amDischarged to home care or self care (routine discharge)Wilfrido Montez , Recent Diagnosis Onset Date Admit Date MARISOL (acute kidney injury) Unknown December 23, 2024 2:49am CKD (chronic kidney disease) stage 5, GFR less than 15 ml/min Unknown December 23, 2024 2:49am End-stage renal disease needing dialysis Unknown December 23, 2024 2:49am Hip fracture Unknown December 23 2:49am Hyperkalemia Unknown December 23 2:49am Hypertensive kidney disease with chronic kidney disease stage V Unknown December 23, 2024 2:49am Intertrochanteric fracture of right hip Unknown December 23, 2024 2:49am Metabolic acidosis Unknown December 23, 2024 2:49am Pre-operative cardiovascular examination Unknown December 23, 2024 2:49am Psoriasis Unknown December 23 2:49am Radius distal fracture Unknown December 232024 2:49am 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 Unknown December 23, 2024 2:49am COPD (chronic obstructive pulmonary disease) Unk nown December 23, 2024 2:49am Diabetes Unknown December 23 2:49am 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 Unknown November 282024 2:49am GERD (gastroesophageal reflux disease) Unknown December 23, 2024 2:49am Hypertension Unknown December 23 2:49am Anemia of renal disease Unknown 2024 4:06pm Diabetic neuropathy Unknown December 4:06pm End-stage renal disease needing dialysis Unknown December 30, 2024 4:06pm Hip fracture Unknown December 30, 025 4:06pm Hypertensive kidney disease with chronic kidney disease stage V Unknown December 30, 2024 4:06pm Intertrochanteric fracture of right hip Unknown December 30, 2024 4:06pm Radius distal fracture Unknown December 30, 2024 4:06pm 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 Unknown December 30, 2024 4:06pm COPD (chronic obstructive pulmonary disease) Unk nown December 30, 2024 4:06pm GERD (gastroesophageal reflux disease) Unknown December 30, 2024 4:06pm Hypertension Unknown December 30, 2 025 4:06pm Intertrochanteric fracture of right hip Unknown February 01, 2025 10:59am Radius distal fracture Unknown February 012024 10:59am Status post amputation of toe of right foot Unkn own February 01, 2025 10:59am Other specified postprocedural states Unknown February 01, 2025 10:59am Intertrochanteric fracture of right hip Unknown March 15, 2025 10:54am Radius distal fracture Unknown March 15, 2025 10:54am Status post amputation of toe of right foot Unkn own March 15, 2025 10:54am Other specified postprocedural states Unknown March 15, 2025 10:54am Assessments Diagnosis Onset Date Resolution Status Admit Date MARISOL (acute kidney injury) acuteAugus2024 2:49amCKD (chronic kidney disease) stage 5, GFR less than 15 ml/minacuteAugust 2024 2:49amEnd-stage renal disease needing dialysis acuteAut 2024 2:49amHip fractureacuteAugust 2024 2:49am HyperkalemiaacuteAugust 2024 2:49amHypertensive kidney disease with chronic kidney disease stage VacuteAu2024 2:49amIntertrochanteric fracture of right hipacuteAugust 2024 2:49amMetabolic acidosisacuteAugust 2024 2:49amPre-operative cardiovascular examinationacuteAugus2024 2:49amPsoriasisacuteAugust 2024 2:49amRadius distal fractureacuteAugus2024 2:49amType 2 diabetes mellitus with diabetic chronic kidney disease acuteAugus2024 2:49amCOPD (chronic obstructive pulmonary disease)chronic December 23, 2024 2:49amDiabeteschronicAugust 2024 2:49am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chronicAugust 2024 2:49amGERD (gastroesophageal reflux disease)chronicAugus2024 2:49amHypertensionchronicAugust 2024 2:49amAnemia of renal diseaseacuteSept2024 4:06pmDiabetic neuropathy acuteSept2024 4:06pmEnd-stage renal disease needing dialysisacute December 30, 2024 4:06pmHip fractureacuteSept2024 4:06pm Hypertensive kidney disease with chronic kidney disease stage VacuteSept2024 4:06pmIntertrochanteric fracture of right hipacuteSept2024 4:06pmRadius distal fractureacuteSept2024 4:06pmType 2 diabetes mellitus with diabetic chronic kidney diseaseacuteSept2024 4:06pmCOPD (chronic obstructive pulmonary disease)chronicSept2024 4:06pmGERD (gastroesophageal reflux disease)chronicSept2024 4:06pmHypertension chronicSeptember 2024 4:06pmIntertrochanteric fracture of right hipacute February 01, 2025 10:59amRadius distal fractureacuteOctober 2024 10:59am Status post amputation of toe of right footchronicOctober 2024 10:59amOther specified postprocedural statesnoneactiveOctober 2024 10:59am Intertrochanteric fracture of right hipacuteNovember 2024 10:54amRadius distal fractureacuteNovember 2024 10:54amStatus post amputation of toe of right footchronicNovember 2024 10:54amOther specified postprocedural statesnoneactiveNovember 2024 10:54am Plan of Treatment Author [facility]frido Montez [facility] HospitalAuthoredOctober 2024 1:43pmGlenn is here now about 4 weeks s/p right TFN for intertrochanteric hip fracture. Continue advancing as tolerated without restrictions. Will plan to see back in another 3 to 4 weeks for repeat x-rays. Also s/p right distal radius ORIF. Doing well. Exam overall benign. Discussed use of brace but he declines today. Okay to advance as tolerated with wrist Radiographs reviewed with patient today. Hardware is in good position. Patient can progress to weight bearing as tolerated to the right leg. Patient is to continue to limit weight bearing to the wrist, no more then 5 lbs. Discussed at his follow up we will obtain xrays of the right knee and discuss possible injection. Patient is to follow up in 3-4 weeks with xrays (right knee, right wrist, right hip) Note scribed by DANDY Cooley, reviewed and amended by myself Wilfrido Montez D.O. Author Stefany Cooley [facility] 2024 10:56amGlenn is here now about 4 weeks s/p right TFN for intertrochanteric hip fracture. Continue advancing as tolerated without restrictions. Will plan to see back in another 3 to 4 weeks for repeat x-rays. Also s/p right distal radius ORIF. Doing well. Exam overall benign. Discussed use of brace but he declines today. Okay to advance as tolerated with wrist Reviewed imaging with the patient in detail. Advised patient to keep progressing in physical therapy. Ordered CT scan of the right hip and the patient will follow-up after for the results. Future Tests Future scheduled test information is unavailable Pending Tests Test Name Ordered Date Scheduled Date XR hip RT min 2V(w/wo pelvis)* January 29, 2025 11:04am XR wrist RT min 3V*January 29, 2025 11:04amXR hip RT min 2V(w/wo pelvis)* March 12, 2025 11:59amCT hip RT wo conNovember 2024 10:52amXR knee RT 4V*March 12, 2025 11:59amXR wrist RT min 3V*March 12, 2025 11:59am Future Visits Future appointment information is unavailable Future Procedures Procedure Name Ordered Date Scheduled Date Admit Status Order December 23, 2024 3:52am Augu st 2024 3:52am Discharge Order December 29, 2024 11:20am Sept ember 2024 11:20am Consult to Nephrology December 23, 2024 7:34am A ugust 2024 7:35am Consult to Orthopedic Surgery December 23, 2024 4:20am December 23, 2024 4:20am Consult to Physiatry December 25, 2024 4:56am Au marii 2024 4:56am Consult to Vascular Surgery December 23, 2024 1: 54pm December 23, 2024 1:54pm Feeding Strategies/Supervision/Equipme nt/Location January 07, 2025 3:43pm January 07, 2025 3:43p m Admit Status Order December 30, 2024 3:23pm Se ptember 2024 3:26pm Consult to Adult Hospitalist December 30, 2024 3:23pm December 30, 2024 3:26pm Discharge Order January 15, 2025 11:41am Sep tember 2024 11:41am Consult to Nephrology December 30, 2024 3:33pm December 30, 2024 3:38pm Future Medications Future medication information is unavailable Patient Instructions Patient instructions are unavailable
--- OUTSIDE RECORDS SUMMARY | 2025-03-17 12:06 | XMS_ITS | CCD ---
Author Organization [facility] Care Team Providers Care Rn Anesthesiology Name Role Phone Jose Juarez Primary Care Provider [phone] Eugene Morel Admit Provider [phone] Eugene Morel Attending Provider Gordon Ewing Attending Provider [phone] Patria Cheung Attending Provider SAVANNAH REYNOLDS Admitting Unavailable SAVANNAH REYNOLDS Attending Unavailable JOSE JUAREZ Primary Care Unavailable JOSE JUAREZ Referring Unavailable [place] Procedure Practitioner Unavailab TRISHA Ozuna Surgeon Unavailable NIMA WYNNE Surgeon Unavailable [place] Procedure Practitioner Unavailab Jose Andres Primary Care Provider Eugene Morel Admit Provider [phone] Gordon Ewing Attending Provider [phone] Patria Cheung Attending Provider [phone] Latrice Lehman Attending Provider PROVIDER, UNKNOWN Attending [...] Consulting Unavailable SU ., DR CARLOS EDUARDO Carmnoa Admitting Unavailable SU ., DR CARLOS EDUARDO [...] Valone Jr., Jose MAE Primary Care Provider [facility] DPM, Chino Hopson Attending Provider Kenya DPM, Chino Hopson Attending Provider [facility] DPM, Chino Hopson Attending Provider Jose [...] Other Provider Camila GOOD, Aleta Other Provider [phone] Raad SIGALA, Doc Hopson Other Provider Kami SIGALA, Raimundo Attending Provider [phone] Ronald SIGALA, Clayton Admit Provider Clayton Cardenas MD Attending Provider [phone] Ingrid RUBIO, Marlena Other Provider Unavailable Neelam RUBIO, Yudy Other Provider Unavailable Asif RN, Denise Other Provider Unavailable Rafat RN, Diana Other Provider Unavailable Dimas RNMeme Other Provider Unavailable Ronald RUBIO, Brigitte Other Provider Unavailable Sukumar Patricio MD Other Provider Doug Joseph DO Other Provider Billy SIGALA, Dinesh Other Provider Eugene Morel DO Other Provider Celia SIGALA, Enrique Other Provider Liza Rod MD Other Provider Bryan Cordova DO Other Provider Dewayne Godwin MD Other Provider Unavailable Ita Orellana APRN Other Provider Vishal Aguirre MD Other Provider Krystal Rodriguez MD Other Provider Unavailable Henrry Manning MD Other Provider Bryan James DO Other Provider Idalia Bryan MD Other Provider Nazario Baez MD Other Provider Mathew NIETO-C, Patricia Sanchez Other Provider [phone] Nick Jerez APRN Other Provider Unavailable Toribio [...] Provider Cici Reilly MD Other Provider [phone] Ericka Otto APRN Other Provider Unavailable Talia Pinedo MD Other Provider Clayton Ramsey MD Other Provider Dewayne Akbar MD Other Provider Josemanuel Talavera MD Other Provider Mary Pichardo APRN Other Provider Bolzan-Basilia FLORENTINO, Nicoletto Other Provider [phone] Alanis RUBIO, Fanta Other Provider Unavailable Kike Pollack MD Other Provider Mabel PAIRER-C, Elizabeth Other Provider Unavailable Raimundo Mcclure MD Other Provider Aleta Jensen APRN Attending Provider Larry Charles DO, Charles L Primary Care Provider Donnell PAIRER-C, Alyssia Tilley Other Provider [phone] Bryan Cordova DO Other Provider Unavailab Wilfrido [...] Admitting Unavailable Marlena Quintero Consulting Unavailable Yudy iRchter Consulting Unavailable Denise Gold Consulting Unavailable Diana [...] Dela Cruz Consulting Unavailable Cici Reilly Consulting UnaEricka Melchor [...] Provider Jose Juarez MD Primary Care Provider [phone] Unavailable Unavailable Unavailable Allergies Allergy ClassificationReported Allergen(s)Allergy TypeDate of OnsetReaction(s) Facilityexenatide (1 source)exenatideDrug Aslgqcp09-17-9669Qnr [facility] [place] RepositoryNSAIDs (5 sources)celecoxib; Translations: [Celebrex]Drug Tugdvbo37-91-1129Vrznjczdix BreathingThe [facility] [place] RepositoryPhenolphthalein (1 source)PhenolphthaleinDrug Vjgmssf29-11-2279Ioh [facility] [place] Repository (16 sources)celecoxib; Translations: [celecoxib]Drug Cknnuqy38-07-8650Rvfwutzecv Breathing, bad for kidney, Difficulty [facility] Repository (14 sources)Aspirin; Translations: [ASPIRIN]Drug Zllktfg40-39-0001wha for kidney [facility] Repository (3 sources)AmoxicillinDrug Votjbah48-54-6454Nnk [facility] Repository (1 source)celecoxibDrug Hzoxoki15-76-8450MpoA[facility] Repository (1 source)exenatideDrug Zmzsrrc00-92-9369XrvAdena Health System Repository (1 source)PhenolphthaleinDrug Llvphjv74-90-7516Ist [facility] Repository (8 sources)exenatide; Translations: [EXENATIDE]Drug Fxhnkqc99-88-0970RokWmfavm Repository (8 sources)HYLAN G-F 20; Translations: [HYLAN G-F 20]Propensity to adverse reactions to drug (disorder)06-62-1704PeyBkjgzx Repository (2 sources)exenatideDrug Qsqaoqm66-43-5070PpyktvtwnMercy Health (2 sources)OXcarbazepineDrug Eybvwgi74-07-9191WracywrqmMercy Health (1 source)AspirinDrug Bkvpuvn41-99-2835NrvamafqyMercy Health Repository Medications Current Medications MedicationDrug Class(es)DatesSig (Normalized)Sig (Original)acetaminophen 500 mg oral tablet (2 sources)Start: 73-94-3041pdan 2 tablets by mouth three times dailyAlbuterol Sulfate (16 sources)beta2-Adrenergic AgonistStart: 17-03-7621iffc 1 puff(s) by inhalation every six hoursAlbuterol Sulfate Active 2 PUFF Inhalation Q6H December 31, 2018 3:14pmStart: 09-30-2017 End: 03-24-5095wuqa 1 puff(s) by inhalation every six hoursAlbuterol Sulfate Discontinued 2 PUFF INHALATION Q6H September 30, 2017 6:15pm November 08, 2017 1:23pm Start: 09-30-2017 End: 33-04-2594assz 1 puff(s) by inhalation every six hours [...] oral tablet (1 source)Dihydropyridine Calcium Channel BlockerStart: 25-60-8600nzbe 10 mg by mouth once dailyAmlodipine Active 10 MG Oral Daily January 05, 2019 2:10pm B Complex And C 20-Folic Acid (Renal Caps) 1 mg Capsule (4 sources)Start: 62-82-1222tdua 1 capsule by mouth once dailyB Complex With C 20-Folic Acid (Renal Caps) 1 mg Capsule (5 sources)Start: 57-25-8932ivuv 1 capsule by mouth once dailyB Complex With C 20-Folic Acid (Renal Caps) 1 mg Capsule Active 1 CAP PO Daily August 18, 2020 9:20pmStart: 90-24-1827vryr 1 capsule by mouth once dailyB Complex With C 20- Folic Acid (Renal Caps) 1 mg Capsule Active 1 CAP PO Daily August 18, 2020 12:0 0ambiotin 5 mg disintegrating oral tablet (7 sources)Start: 90-41-3798appu 5000 ug by mouth twice dailyBiotin Active 5000 MCG Oral Twice daily September 30, 2017 6:18pmbiotin 5,000 mcg tablet,disintegrating Dissolve 10,000 mcg on tongue 2 (two) times a day. Lehsvm18 hr buPROPion hydrochloride 300 mg extended release oral tablet (16 sources)AminoketoneStart: 58-48-0983slak 1 tablet by mouth once dailyStart: 54-25-9962flpk 150 mg by mouth once dailyBupropion Hcl Active 150 MG Oral Daily September 30, 2017 6:19pmStart: 33-93-1994ywyj 1 tablet by mouth every twelve hours in the morningbuPROPion SR (WELLBUTRIN SR) 150 mg 12 hr tablet Take 1 tablet (150 mg total) by mouth in the morning. Activecolesevelam hydrochloride 625 mg oral tablet (16 sources)Bile Acid SequestrantStart: 39-07-6220ulia 3 tablets by mouth three times daily at mealtimeColesevelam (Welchol) 625 mg Tablet Active 1875 MG PO THREE TIMES DAILY WITH MEALS September 30, 2017 6:42pmStart: 91-18-7183ggql 1250 mg by mouth three times daily at mealtimeColesevelam Active 1250 MG Oral THREE TIMES DAILY WITH MEALS September 30, 2017 6:42pmStart: 09-30-2017 End: 71-07-9463nzow 3 tablets by mouth twice daily at mealtimeColesevelam (Welchol) 625 mg Tablet Discontinued 1875 MG PO TWICE DAILY WITH MEALS September 30, 2017 12:00am December 29, 2024 12:20pmcolesevelam (WELCHOL) 625 mg tablet Take 650 mg by mouth Medrol Dose Pack scheduling ONLY. Active1 ml darbepoetin ml 0.06 mg/ml injection (2 sources)Erythropoiesis-stimulating AgentStart: 63-72-7797fype 60 ug intravenously every weekdocusate sodium 100 mg oral capsule (18 sources)Start: 80-71-1221wvcv 1 capsule by mouth twice dailyStart: 60-70-9715nfad 100 mg by mouth twice dailyDocusate Sodium Active 100 MG Oral Twice daily December 31, 2018 3:14pmStart: 09-30-2017 End: 94-48-6531uexv 1 capsule by mouth twice dailyDocusate Sodium (Colace) 100 mg Capsule Discontinued 100 MG PO Twice daily September 30, 2017 12:00am November 08, 2017 1:27pmDULoxetine 60 mg delayed release oral capsule (19 sources)Serotonin and Norepinephrine Reuptake InhibitorStart: 25-57-9245aktm 1 capsule by mouth once dailyStart: 09-30-2017 End: 29-63-8734ehve 1 capsule by mouth at bedtimeDuloxetine 30 mg capsule,delayed release(DR/EC) Discontinued 30 MG PO Bedtime September 30, 2017 12:00am December 31, 2018 3:08pmfamotidine 40 mg oral tablet (17 sources)Histamine-2 Receptor AntagonistStart: 70-20-3117Kwclz: 08-18-2020 take 1 tablet by mouth twice dailyStart: 97-85-6898xuvc 20 mg by mouth twice dailyFamotidine Active 20 MG Oral Twice daily September 30, 2017 6:23pmFinerenone (3 sources)Start: 35-78-9817grnc 1 tablet by mouth once dailyfolic acid 1 mg oral tablet (7 sources)Start: 07-71-4219ypyj 1 mg by mouth once dailyFolic Acid Active 1 MG Oral Daily December 31, 2018 3:14pm ALL DAYS EXCEPT SATURDAYheparin sodium, porcine 5000 unt/ml injectable solution (2 sources)Unfractionated Heparin, Anti-coagulantStart: 53-79-8251jjyrll 5000 [IU] by subcutaneous injection every twelve hours3 ml insulin aspart, human 100 unt/ml pen injector (8 sources)Insulin AnalogStart: 12-29-2024 End: 23-47-9265Xtsfb: 12-23-2024 End: 52-33-0262Nmecabe Aspart U-100 (Novolog U-100 Insulin Aspart) 100 unit/mL solution Discontinued 1 sliding scale dose SUBCUT As Directed December 23, 2024 12:00am January 15, 2025 12:24pm3 ml insulin glargine 100 unt/ml pen injector (5 sources)Insulin AnalogStart: 95-43-0412Egvmg: 12-29-2024 End: 28-63-4096Hmhiabb Glargine (Lantus Solostar U-100 Insulin) 100 unit/mL (3 mL) Insulin Pen Discontinued 40 UNIT SUBCUT Daily 04 27December 29, 2024 12:00am January 15, 2025 12:23pmlidocaine 0.04 mg/mg medicated patch (2 sources)Antiarrhythmic, Amide Local AnestheticStart: 07-44-7391ftzvl 1 dose topically once dailylinezolid 600 mg oral tablet (1 source)Oxazolidinone AntibacterialStart: 83-96-8359bpps 600 mg by mouth twice dailyLinezolid Active 600 MG Oral Twice daily 28 14 January 05, 2019 2:10pm Magnesium (1 source)Magnesium 400 MG as directed Orally Activemeclizine hydrochloride 25 mg chewable tablet (17 sources)AntiemeticStart: 36-10-3141qske 25 mg by mouth once dailyMeclizine Active 25 MG Oral Daily September 30, 2017 6:30pmStart: 09-30-2017 End: 96-18-7796oucw 1 tablet by mouth every eight hours as needed for dizziness Meclizine 25 mg Tablet,Chewable Discontinued 25 MG PO Every 8 hours as needed for Dizziness September 30, 2017 12:00am December 29, 2024 12:20pmtake 1 tablet by mouth every eight hoursMeclizine HCl 25 MG 1 tablet as needed Orally three times a day Activemetoprolol tartrate 25 mg oral tablet (1 source)beta-Adrenergic BlockerStart: 51-36-2998vbmd 25 mg by mouth twice dailyMetoprolol Tartrate Active 25 MG Oral Twice daily 120 60 January 05, 2019 2:10pmmidodrine hydrochloride 5 mg oral tablet (3 sources)alpha-Adrenergic AgonistStart: 19-18-5045ejcr 2 tablets by mouth before breakfasttake 1 tablet by mouth twice daily in the morningMidodrine HCl 5 MG TAKE 1 TABLET BY MOUTH TWICE DAILY IN THE MORNING AND SUPPER IF BLOOD PRESSURE IS LESS THAN 90 STANDING Oral Activemontelukast 10 mg oral tablet (17 sources)Leukotriene Receptor AntagonistStart: 25-75-8041svgj 1 tablet by mouth at bedtimeMultivit With Imq-Ed-Lhqbgchi (One-A-Day Men's 50 Plus) 400-370 mcg tablet (3 sources)Start: 93-23-6075ihxp 50-400 tablets by mouth once dailynystatin 100 unt/mg topical powder (2 sources)Polyene AntifungalStart: 54-75-3095gjbqwkobmzi 4 mg oral tablet (1 source)Serotonin-3 Receptor Antagonisttake 1 tablet by mouth every eight hours as neededOndansetron HCl 4 MG TAKE 1 TABLET BY MOUTH EVERY 8 HOURS NEEDED Oral for 3 ActiveoxyCODONE hydrochloride 5 mg oral tablet (2 sources)Opioid AgonistStart: 74-17-5131dlwe 2 tablets by mouth every six hours as needed for painpolyethylene glycol 3350 96416 mg powder for oral solution (3 sources)Osmotic LaxativeStart: 35-50-1631Xxinfhq 17 grams orally at hour of sleep Activepregabalin 75 mg oral capsule (6 sources)Start: 49-23-6963hrkt 1 capsule by mouth three times dailypregabalin (LYRICA) 75 mg capsule Indications: Diabetic peripheral neuropathy (CMS-HCC) Take 1 capsule (75 mg total) by mouth 3 (three) times a day. 90 capsule 1 04/16/2019 ActiveRenal Softgels (1 source)Renal Softgels Activerosuvastatin calcium 20 mg oral tablet (20 sources)HMG-CoA Reductase InhibitorStart: 31-66-5315sqdp 1 tablet by mouth at bedtimeStart: 11-39-2309sgzx 10 mg by mouth once dailyRosuvastatin (Crestor) 40 mg Tablet Active 10 MG PO Daily August 18, 2020 9:12pmStart: 08-18-2020 End: 76-04-6275Seuzzweuuvms (Crestor) 40 mg Tablet Discontinued 20 MG PO Daily August 18, 2020 12:00am August 25, 2020 12:34pmStart: 86-23-5330pzul 10 mg by mouth once dailyRosuvastatin Active 10 MG Oral Daily September 30, 2017 6:35pm sevelamer carbonate 800 mg oral tablet (20 sources)Phosphate BinderStart: 47-21-9382ihqd 1 tablet by mouth once at mealtimeStart: 57-56-3005sges 400 mg by mouth once dailySevelamer Hcl Active 400 MG Oral Daily September 30, 2017 6:35pmStart: 09-30-2017 End: 39-70-9475Fjotkigzg Hcl (Renagel) 800 mg Tablet Discontinued 400 MG PO Daily September 30, 2017 12:00am August 19, 2020 11:03amtake 1 tablet by mouth in the morningsevelamer (RENAGEL) 400 mg tablet Take 1 tablet (400 mg total) by mouth in the morning. Active5 ml sodium ferric gluconate complex 12.5 mg/ml injection (2 sources)Start: 30-17-8439kpdqucpalpuox acetonide 1 mg/ml topical cream (16 sources)CorticosteroidStart: 24-27-5703Hthnftzlklyrz Acetonide Active 1 APPLIC TOPICAL Twice daily December 31, 2018 3:14pmStart: 12-31-2018 End: 43-96-0412Qvrdrkvlwgxhh Acetonide 0.1 % Cream Discontinued 1 APPLIC TOPICAL Twice daily December 31, 2018 12:00am December 29, 2024 12:20pm Completed/Discontinued Medications MedicationDrug Class(es)DatesSig (Normalized)Sig (Original)acetaminophen 325 mg / HYDROcodone bitartrate 5 mg oral tablet (20 sources)Opioid AgonistStart: 12-31-2018 End: 08-55-6730rxiy 1 tablet by mouth every six hours as needed for pain Hydrocodone-Acetaminophen 5-325 mg tablet Discontinued 1 TAB PO Q6H as needed for Pain December 31, 2018 12:00am January 05, 2019 2:16pmStart: 09-30-2017 End: 32-55-7162yufq 1 tablet by mouth every four hours as needed for pain Hydrocodone-Acetaminophen 5-325 mg tablet Discontinued 5 MG PO Q4H as needed for Pain September 30, 2017 12:00am November 12, 2017 11:43amacetaminophen 325 mg / oxyCODONE hydrochloride 5 mg oral tablet (10 sources)Opioid AgonistStart: 11-12-2017 End: 47-65-8166jixo 1 tablet by mouth every six hours [...] oral tablet (18 sources)Penicillin-class AntibacterialStart: 11-12-2017 End: 43-40-8630wvpo 1 tablet by mouth every eight hoursAmoxicillin-Pot Clavulanate (Augmentin) 500-125 mg tablet Discontinued 1 TAB PO Q8H 42 November 12, 2017 12:00am November 25, 2017 12:00am November 26, 2017 12:01amStart: 10-04-2017 End: 49-01-4799ntkm 1 tablet by mouth twice dailyAmoxicillin-Pot Clavulanate (Augmentin) 500-125 mg tablet Discontinued 1 TAB PO Twice daily 2017 12:00am November 08, 2017 1:24pmapremilast 30 mg oral tablet (9 sources)Start: 08-19-2020 End: 12-16-8426esrp 1 tablet by mouth once dailyApremilast (Otezla) 30 mg Tablet Discontinued 30 MG PO Daily August 19, 2020 12:00am December 29, 2024 12:20pmatorvastatin 40 mg oral tablet (8 sources)HMG-CoA Reductase InhibitorStart: 08-23-2020 End: 62-65-3469cbpt 1 tablet by mouth once daily in the eveningAtorvastatin 40 mg Tablet Discontinued 40 MG PO Every evening August 23, 2020 12:00am January 15, 2025 12:23pmB Complex And C 20-Folic Acid 1 mg capsule (4 sources)Start: 09-30-2017 End: 59-03-4544vhyq 1 capsule by mouth once dailyB Complex And C 20-Folic Acid 1 mg capsule Discontinued 1 CAP PO Daily September 30, 2017 12:00am November 08, 2017 1:25pmB Complex With C 20-Folic Acid (4 sources)Start: 09-30-2017 End: 75-85-3549ynbk 1 capsule by mouth once dailyB Complex With C 20-Folic Acid Discontinued 1 CAP PO Daily September 30, 2017 6:45pm November 08, 2017 1:25pmB Complex With C 20-Folic Acid 1 mg capsule (1 source)Start: 09-30-2017 End: 35-75-4197gjvp 1 capsule by mouth once dailyB Complex With C 20-Folic Acid 1 mg capsule Discontinued 1 CAP PO Daily September 30, 2017 12:00am 2017 1:25pmbumetanide 2 mg oral tablet (9 sources)Loop DiureticStart: 09-30-2017 End: 87-81-1342agee 1 tablet by mouth once dailyBumetanide 2 mg Tablet Discontinued 2 MG PO Daily September 30, 2017 12:00am December 31, 2018 3:05pm calcium acetate 667 mg oral capsule (16 sources)Start: 09-30-2017 End: 98-71-0388zfgl 1 capsule by mouth three times daily at mealtimeCalcium Acetate(Phosphat Bind) 667 mg Capsule Discontinued 667 MG PO THREE TIMES DAILY WITH MEALS September 30, 2017 12:00am August 25, 2020 12:34pmcholecalciferol 0.125 mg oral tablet (9 sources)Vitamin DStart: 08-18-2020 End: 15-56-2402ucli 1 tablet by mouth once dailyCholecalciferol (Vitamin D3) (Vitamin D3) 125 mcg (5,000 unit) Tablet Discontinued 125 MCG PO DailyAugust 18, 2020 12:00am August 25, 2020 12:34pmdoxycycline hyclate 100 mg oral capsule (9 sources)Tetracycline-class DrugStart: 11-12-2017 End: 38-60-5918gsuq 1 capsule by mouth twice dailyDoxycycline Hyclate 100 mg capsule Discontinued 100 MG PO Twice daily November 12, 2017 12:00amAugu2017 12:00am December 03, 2017 12:01amempagliflozin 25 mg oral tablet (3 sources)Sodium-Glucose Cotransporter 2 InhibitorStart: 12-23-2024 End: 44-38-9184laau 1 tablet by mouth once dailyEmpagliflozin (Jardiance) 25 mg tablet Discontinued 25 MG PO Daily December 23, 2024 12:00am January 15, 2025 12:23pm On Hold: Plan to hold permanently given HD status per nephrology esomeprazole 40 mg delayed release oral capsule (9 sources)Proton Pump InhibitorStart: 08-18-2020 End: 24-61-4522gvha 1 capsule by mouth once dailyEsomeprazole Magnesium 40 mg capsule,delayed release(DR/EC) Discontinued 40 MG PO Daily July 12:00am December 29, 2024 12:20pmferrous sulfate 325 mg oral tablet (8 sources)Start: 08-25-2020 End: 41-42-6482Qlifvbm Sulfate 325 mg (65 mg iron) tablet Discontinued 325 MG PO Every 48 hours August 25, 2020 12:00am December 29, 2024 12:20pm furosemide 40 mg oral tablet (10 sources)Loop DiureticStart: 08-25-2020 End: 88-54-7024ocom 1 tablet by mouth twice dailyFurosemide 40 mg Tablet Discontinued 40 MG PO BID@0800,1600 60 August 25, 2020 12:00am December 29, 2024 12:20pmStart: 93-04-2486dhjx 40 mg by mouth once dailyFurosemide Active 40 MG Oral Daily January 05, 2019 2:10pmgabapentin 800 mg oral tablet (18 sources)Anti-epileptic AgentStart: 08-18-2020 End: 84-91-5226ncbj 1 tablet by mouth twice dailyGabapentin 800 mg tablet Discontinued 800 MG PO Twice daily August 18, 2020 12:00am August 25, 2020 12:34pmStart: 09-30-2017 End: 39-09-5903qgdg 1 tablet by mouth twice dailyGabapentin 600 mg tablet Discontinued 600 MG PO Twice daily September 30, 2017 12:00am December 31, 2018 3:10pmhydrALAZINE hydrochloride 25 mg oral tablet (12 sources)Arteriolar VasodilatorStart: 12-29-2024 End: 36-14-4020ovhc 1 tablet by mouth three times dailyHydralazine 25 mg Tablet Discontinued 25 MG PO Three times daily 90 December 29, 2024 12:00am S bibitemaddie 2024 12:23pmStart: 08-18-2020 End: 34-98-6348wupu 1 tablet by mouth three times dailyHydralazine 100 mg tablet Discontinued 100 MG PO Three times daily August 18, 2020 12:00am December 29, 2024 12:20pm3 ml insulin degludec 100 unt/ml pen injector (20 sources)Insulin AnalogStart: 11-08-2017 End: 08-90-5563Npecvvf Degludec (Tresiba Flextouch U-100) 100 unit/mL (3 mL) insulin pen Discontinued 200 UNIT SUBCUT Daily November 08, 2017 1:37pm December 29, 2024 12:20pmStart: 24-61-2735ttvaob 100 [IU] by subcutaneous injection once dailyInsulin Degludec Active 100 UNIT Subcutaneous Daily November 08, 2017 1:37pm Start: 10-04-2017 End: 19-22-7476Eyowaja Degludec (Tresiba Flextouch U-100 Insulin) 100 unit/mL (3 mL) insulin pen Discontinued 70 UNIT SUBCUT Daily 3 October 04, 2017 12:00am November 08, 2017 1:37pmStart: 09-30-2017 End: 60-11-1391xywiyf 200 [IU] by subcutaneous injection once dailyInsulin Degludec (Tresiba Flextouch U-200) 200 unit/mL (3 mL) insulin pen Discontinued 200 UNIT SUBCUT Daily September 30, 2017 12:00am October 04, 2017 12:34pminsulin degludec (TRESIBA FLEXTOUCH U-200) 200 unit/mL (3 mL) insulin pen Inject 100 Units under the skin in the morning. Active3 ml insulin detemir 100 unt/ml pen injector (3 sources)Insulin AnalogStart: 12-23-2024 End: 14-80-1653gyxlvp 30 [IU] by subcutaneous injection at bedtimeInsulin Detemir U-100 100 unit/mL (3 mL) insulin pen Discontinued 30 UNIT SUBCUT Bedtime December 23, 2024 12:00am December 29, 2024 12:20pm3 ml insulin glargine 100 unt/ml / lixisenatide 0.033 mg/ml pen injector (20 sources)Insulin AnalogStart: 12-31-2018 End: 68-39-3179Ntmmyxt Glargine-Lixisenatide (Soliqua 100/33) 100 unit-33 mcg/mL Insulin Pen Discontinued 60 UNITSSUBCUT Daily December 31, 2018 12:00am December 29, 2024 12:20pmStart: 09-30-2017 End: 57-24-6163Bphyzyz Glargine-Lixisenatide (Soliqua 100/33) 100 unit-33 mcg/mL Insulin Pen Discontinued 70 UNIT SUBCUT Daily September 30, 2017 12:00am October 04, 2017 1:07pminject 60 [IU] by subcutaneous injection twice dailySoliqua 100/33 60 Units Subcutaneous TWICE A DAY Active3 ml insulin lispro 100 unt/ml pen injector (20 sources)Insulin AnalogStart: 11-08-2017 End: 06-24-2830Kmzdxzf Lispro (Humalog Kwikpen Insulin) 100 unit/mL insulin pen Discontinued 50 UNIT SUBCUT THREE TIMES DAILY WITH MEALS November 08, 2017 1:37pm December 31, 2018 3:11pmStart: 10-04-2017 End: 62-75-8904Pqktipn Lispro (Humalog Kwikpen Insulin) 100 unit/mL Insulin Pen Discontinued 40 UNIT SUBCUT THREE TIMES DAILY WITH MEALS 3 October 04, 2017 1:10pm November 08, 2017 1:37pmStart: 09-30-2017 End: 86-55-5666Kixvusf Lispro (Humalog Kwikpen Insulin) 100 unit/mL Insulin Pen Discontinued 50 UNIT SUBCUT THREE TIMES DAILY WITH MEALS September 30, 2017 12:00am October 04, 2017 1:11pmHumaLOG KwikPen 200 UNIT/ML as directed Subcutaneous SLIDING SCALE Activelinaclotide 0.145 mg oral capsule (9 sources)Guanylate Cyclase-C AgonistStart: 09-30-2017 End: 98-35-7337boaz 1 capsule by mouth once dailyLinaclotide 145 mcg capsule Discontinued 145 MCG PO Daily September 30, 2017 12:00am November 08, 2017 1:31pm losartan potassium 100 mg oral tablet (15 sources)Angiotensin 2 Receptor BlockerStart: 12-31-2018 End: 35-75-0546gvdp 1 tablet by mouth once dailyLosartan 100 mg Tablet Discontinued 100 MG PO Daily December 31, 2018 12:00am January 05, 2019 2:16pmtake 2 tablets by mouth in the morninglosartan (COZAAR) 50 mg tablet Take 2 tablets (100 mg total) by mouth in the morning. Activemagnesium oxide 400 mg oral tablet (9 sources)Start: 08-18-2020 End: 90-27-3548prdx 1 tablet by mouth once dailyMagnesium Oxide 400 mg magnesium Tablet Discontinued 400 MG PO Daily August 18, 2020 12:00am December 29, 2024 12:20pmmethotrexate 2.5 mg oral tablet (16 sources)Folate Analog Metabolic InhibitorStart: 12-31-2018 End: 85-33-1439ffjr 10 mg by mouth every weekMethotrexate Sodium Discontinued 10 MG PO every week December 31, 2018 3:14pm August 19, 2020 11:01am Saturday Start: 12-31-2018 End: 88-90-1411rsrt 4 tablets by mouth every weekMethotrexate Sodium 2.5 mg Tablet Discontinued 10 MG PO every week December 31, 2018 12:00am August 19, 2020 11:01am Saturdaytake 1 tablet by mouth every weekmethotrexate 2.5 mg chemo tablet Take 1 tablet by mouth once a week ActivemethylPREDNISolone 4 mg oral tablet (8 sources)CorticosteroidStart: 08-23-2020 End: 27-96-1430laix 1 tablet by mouth onceMethylprednisolone (Medrol (Sukh)) 4 mg tablets,dose pack Discontinued 0 PO .COMPLEX August 23, 2020 12:00am December 29, 2024 12:20pm orally per package directionsmetOLazone 10 mg oral tablet (9 sources)Thiazide-like DiureticStart: 09-30-2017 End: 10-40-4346qamc 1 tablet by mouth twice dailyMetolazone 10 mg tablet Discontinued 10 MG PO Twice daily September 30, 2017 12:00am December 31, 2018 3:12pmOXcarbazepine 300 mg oral tablet (17 sources)Anti-epileptic AgentStart: 09-30-2017 End: 98-44-6762lxov 1 tablet by mouth at bedtimeOxcarbazepine 300 mg tablet Discontinued 300 MG PO Bedtime September 30, 2017 12:00am December 29, 2024 12:20pmpotassium chloride 10 meq extended release oral tablet (17 sources)Start: 08-25-2020 End: 51-07-7425Ajpfhwviv Chloride (Klor-Con 10) 10 mEq Tablet Extended Release Discontinued 10 MEQ PO Daily August 25, 2020 12:00am December 29, 2024 12:20pmStart: 09-30-2017 End: 26-62-1843Nlxenjier Chloride 20 mEq Tablet Extended Release Discontinued 20 MEQ PO As Directed September 30, 201712:00am December 31, 2018 3:13pmsodium bicarbonate 325 mg oral tablet (19 sources)Start: 12-23-2024 End: 79-78-1355xtqw 1 tablet by mouth three times dailySodium Bicarbonate 325 mg tablet Discontinued 325 MG PO Three times daily December 23, 2024 12:00am January 15, 2025 12:24pmStart: 30-20-3744hznn 325 mg by mouth once daily Sodium Bicarbonate Active 325 MG Oral Daily November 08, 2017 1:34pmStart: 11-08-2017 End: 30-46-3051qvvn 1 tablet by mouth twice dailySodium Bicarbonate 325 mg Tablet Discontinued 325 MG PO Twice daily November 08, 2017 12:00am August 25, 2020 12:34pmsulfamethoxazole 800 mg / trimethoprim 160 mg oral tablet (20 sources)Dihydrofolate Reductase Inhibitor Antibacterial, Sulfonamide AntimicrobialStart: 12-31-2018 End: 82-73-6981fmra 1 tablet by mouth twice dailySulfamethoxazole-Trimethoprim (Bactrim Ds) 800-160 mg Tablet Discontinued 1 TAB PO Twice daily December 31, 2018 12:00am January 05, 2019 2:16pmStart: 09-30-2017 End: 43-51-1913cijg 1 tablet by mouth twice dailySulfamethoxazole-Trimethoprim 800-160 mg tablet Discontinued 1 TAB PO Twice daily September 30, 2017 12:00am October 04, 2017 12:33pmtamsulosin hydrochloride 0.4 mg oral capsule (20 sources)alpha-Adrenergic BlockerStart: 12-31-2018 End: 50-40-9669zkex 1 capsule by mouth once dailyTamsulosin (Flomax) 0.4 mg Capsule Discontinued 0.4 MG PO Daily December 31, 2018 12:00am December 29, 2024 12:20pmStart: 09-30-2017 End: 43-77-6882uhyh 1 capsule by mouth once dailyTamsulosin (Flomax) 0.4 mg Capsule,Extended Release 24hr Discontinued 0.4 MG PO Daily September 30, 2017 12:00am November 08, 2017 1:33pmtraZODone hydrochloride 50 mg oral tablet (17 sources)Serotonin Reuptake InhibitorStart: 09-30-2017 End: 87-40-1885zjbo 1 tablet by mouth at bedtimeTrazodone 50 mg tablet Discontinued 50 MG PO Bedtime September 30, 2017 12:00am December 29, 2024 12:20pm varenicline 1 mg oral tablet (15 sources)Partial Cholinergic Nicotinic AgonistStart: 09-30-2017 End: 12-88-9910uwyl 1 tablet by mouth once dailyVarenicline Tartrate 1 mg tablet Discontinued 1 MG PO Daily September 30, 2017 12:00am January 05, 2019 2:16pm vorapaxar 2.08 mg oral tablet (9 sources)Protease-activated Receptor-1 AntagonistStart: 09-30-2017 End: 25-51-6433mqvp 1 tablet by mouth once dailyVorapaxar 2.08 mg Tablet Discontinued 2.08 MG PO Daily September 30, 2017 12:00am November 08, 2017 1:36pm Problems Active Problems Problem ClassificationProblemDateDocumented DateEpisodic/ChronicAcute and unspecified renal failure (13 sources)Acute kidney failure, unspecified; Translations: [Acute kidney failure, unspecified]Onset: 88-48-2748AcornycyHrvrkjkas infection; unspecified site (20 sources)Methicillin resistant Staphylococcus aureus infection; Translations: [Streptococcus agalactiae infection]70-44-4038NkmpiladLbtobfw kidney disease (20 sources)Chronic kidney disease stage 4; Translations: [Chronic kidney disease, stage 4 (severe)]Onset: 03-21-2021 Resolved: 82-33-3936TdhpzdhKqjgdac kidney disease (2 sources)Chronic kidney disease; Translations: [Chronic kidney disease, stage 3 unspecified]Onset: 07-55-5865Xcfhjoz obstructive pulmonary disease and bronchiectasis (20 sources)Chronic obstructive lung disease; Translations: [Chronic obstructive pulmonary disease, unspecified]Onset: 26-39-2068XxvhylvAzhjtfp ulcer of skin (17 sources)Non-pressure chronic ulcer of left heel and midfoot with fat layer exposed; Translations: [Non-pressure chronic ulcer of other part of left foot with unspecified severity]Onset: 88-76-5247HrausmcGqqevvmbnrzyv of surgical procedures or medical care (4 sources)Hemodialysis-associated hypotension; Translations: [Hypotension of hemodialysis]Onset: 131510-22-9609TgwuyqmKvwotwgbcnbep of surgical procedures or medical care (6 sources)Other complications of procedures, not elsewhere classified, initial encounter; Translations: [Other specified complications of surgical and medical care, not elsewhere classified, initial encounter]Onset: 53-61-3870Xnzwirov Congestive heart failure; nonhypertensive (1 source)Unspecified combined systolic (congestive) and diastolic (congestive) heart failure; Translations: [UNS COMB SYSTOLIC AND DIASTOLIC CHF]Onset: 46-30-9839DmpiymqFtffpljt injury or internal injury (5 sources)Injury of kidney; Translations: [Acute kidney failure, unspecified] EpisodicDeficiency and other anemia (1 source)Anemia in chronic kidney disease; Translations: [Anemia in chronic kidney disease]ChronicDeficiency and other anemia (2 sources)Anemia in chronic kidney disease; Translations: [Anemia in chronic kidney disease]Onset: 03-21-2021 Resolved: 09-52-8572WawjnfiXxblibmamx and other anemia (1 source)Anemia, unspecified; Translations: [ANEMIA UNSPECIFIED]Onset: 20-34-7943TerpiyfaPmvsamtu mellitus with complications (20 sources)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; Translations: [Type 2 diabetes mellitus with diabetic 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]Onset: 03-21-2021 Resolved: 09-03-7553UkqqfrkHxwocdci mellitus without complication (19 sources)Type 2 diabetes mellitus; Translations: [Diabetes mellitus]Onset: 538108-83-9954IkvkhzkIlsfnkeq mellitus without complication (2 sources)Hyperglycemia; Translations: [Hyperglycemia, unspecified]Episodic Disorders of lipid metabolism (10 sources)Hyperlipidemia; Translations: [Hyperlipidemia, unspecified]Onset: 03-21-2021 Resolved: 47-28-6247NsznxrvMelmtphaqa disorders (20 sources)Gastroesophageal reflux disease; Translations: [Gastro-esophageal reflux disease without esophagitis]Onset: 91-96-0982TdumgbdGretfdjoy hypertension (19 sources)Hypertensive disorder; Translations: [Essential (primary) hypertension]Onset: 74-70-9216TjadbflXlgqq and electrolyte disorders (20 sources)Metabolic acidosis; Translations: [Acidosis]Onset: 12-23-2024 EpisodicFracture of neck of femur (hip) (20 sources)Fracture of bone of hip region; Translations: [Fracture of unspecified part of neck of unspecified femur, initial encounter for closed fracture]Onset: 372306-71-7319OvbuallpBymefzrj of upper limb (10 sources)Fracture of distal end of radius; Translations: [Unspecified fracture of the lower end of unspecified radius, initial encounter for closed fracture]Onset: 880764-06-2480PgfipbljTvnwiknm (7 sources)Critical lower limb ischemia ; Translations: [Atherosclerosis of huslia arteries of extremities with gangrene, left leg]Onset: 02-27-2024 37-15-2367MkcznurPnooczvqdcjhu symptoms and ill-defined conditions (2 sources)Dysuria; Translations: [Dysuria]Onset: 95-54-5592BxsrgybzEqqwmpoklejq with complications and secondary hypertension (20 sources)Chronic kidney disease due to hypertension; Translations: [Hypertensive chronic kidney disease withstage 1 through stage 4 chronic kidney disease, or unspecified chronic kidney disease]Onset: 03-21-2021 Resolved: 11-93-1953LhrbooxEkseotqia arthritis and osteomyelitis (except that caused by tuberculosis or sexually transmitted disease) (2 sources)Other chronic osteomyelitis, left ankle and foot; Translations: [Other acute osteomyelitis, left tibia and fibula]Onset: 52-51-3946JltjcdmUwzr disorders (1 source)Major depressive disorder, single episode, unspecified; Translations: [KILEY DEPRESS D/O SINGLE EPIS UNS]Onset: 07-79-5592TegktjbZwemya and vomiting (1 source)Nausea; Translations: [Nausea]20-86-2876IbrggpuzHbpntnajkcg deficiencies (1 source)Vitamin D deficiency, unspecified; Translations: [Vitamin D deficiency, unspecified]Onset: 22-23-8165IfclvxtJtqzl acquired deformities (1 source)Contracture, left ankle; Translations: [CONTRACTURE LEFT ANKLE]Onset: 01-33-1475YeozxghYimvt aftercare (2 sources)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; 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]Onset: 03-07-7249AbmcbnulBvvkp bone disease and musculoskeletal deformities (1 source)Acquired absence of left foot; Translations: [ACQUIRED ABSENCE OF LEFT FOOT]Onset: 80-72-5540LzxneerVpuvc bone disease and musculoskeletal deformities (9 sources)Amputated foot; Translations: [Acquired absence of left foot]Onset: 720943-60-5776TwbbuvoNahsn bone disease and musculoskeletal deformities (9 sources)Amputated foot; Translations: [Acquired absence of right foot]Onset: 806285-50-0024BewjrksTmpmv bone disease and musculoskeletal deformities (10 sources)History of amputation of right foot; Translations: [Acquired absence of other right toe(s)]03-25-3661PuwcpfkuVixol bone disease and musculoskeletal deformities (4 sources)Acquired absence of other right toe(s); Translations: [Other toe(s) amputation status]EpisodicOther bone disease and musculoskeletal deformities (1 source)Disorder of bone, unspecified; Translations: [DISORDER OF BONE UNSPECIFIED]Onset: 84-91-5829OknvicnnWqjuj connective tissue disease (5 sources)Pain in left foot; Translations: [PAIN IN LEFT FOOT]Onset: 06-05-2022 EpisodicOther diseases of kidney and ureters (1 source)Hyperparathyroidism due to renal insufficiency; Translations: [Secondary hyperparathyroidism of renal origin]ChronicOther diseases of kidney and ureters (1 source)Secondary hyperparathyroidism of renal originOnset: 03-21-2021 Resolved: 08-83-4963TyrdknaMbxry hereditary and degenerative nervous system conditions (1 source)Other idiopathic peripheral autonomic neuropathy; Translations: [OTH IDIO PERIPH AUTONOM NEUROPATHY]Onset: 99-93-0310TwwjemaOtraw hereditary and degenerative nervous system conditions (6 sources)Idiopathic peripheral autonomic neuropathy; Translations: [Other idiopathic peripheral autonomic neuropathy]Onset: 225464-57-3686Zhhwxrn Other inflammatory condition of skin (19 sources)Psoriasis; Translations: [Psoriasis, unspecified]Onset: 01-24-2025 28-47-5302YpxqdsyTwqup inflammatory condition of skin (6 sources)Psoriasis, unspecified; Translations: [Other psoriasis]Onset: 20-46-9285JkpmrtrGfvrp inflammatory condition of skin (1 source)Other psoriasis; Translations: [OTHER PSORIASIS]Onset: 06-27-2022 ChronicOther liver diseases (1 source)Liver disease, unspecified; Translations: [LIVER DISEASE UNSPECIFIED] Onset: 56-79-6514SqxbmneYvhpu lower respiratory disease (8 sources)History of pleural effusion; Translations: [Personal history of other diseases of the respiratory system]80-63-5958XyhzojzlBpjac lower respiratory disease (8 sources)Pleuritic pain; Translations: [Pleurodynia]11-09-6483IzzkjgmxImfab lower respiratory disease (3 sources)Personal history of other diseases of the respiratory system; Translations: [Personal history of other diseases of respiratory system]Episodic Other lower respiratory disease (3 sources)Pleurodynia; Translations: [Painful respiration]EpisodicOther nutritional; endocrine; and metabolic disorders (10 sources)Morbid obesity; Translations: [Morbid (severe) obesity due to excess calories]90-36-0732QcbpklcOvhnm nutritional; endocrine; and metabolic disorders (5 sources)Morbid (severe) obesity due to excess calories; Translations: [Morbid obesity]Onset: 91-43-0700NwaozekXecm-; endo-; and myocarditis; cardiomyopathy (except that caused by tuberculosis or sexually transmitted disease) (11 sources)Pericarditis; Translations: [Disease of pericardium, unspecified] EpisodicPeripheral and visceral atherosclerosis (20 sources)Peripheral vascular disease; Translations: [Peripheral vascular disease, unspecified]Onset: 99-79-8005GuaftpaCybhhpjy; pneumothorax; pulmonary collapse (20 sources)Thickening of pleura; Translations: [Fibrothorax]EpisodicPneumonia (except that caused by tuberculosis or sexually transmitted disease) (2 sources)Pneumonia; Translations: [Pneumonia, unspecified organism]Episodic Residual codes; unclassified (1 source)Postprocedural state finding; Translations: [Other specified postprocedural states]05-08-0637QxdexwqwMocnejrvsgr; intervertebral disc disorders; other back problems (12 sources)Spondylosis without myelopathy or radiculopathy, lumbar region; Translations: [Other intervertebraldisc degeneration, lumbar region]Onset: 71-30-5336AeeprjvJnrwksigq-related disorders (1 source)Smoker; Translations: [Nicotine dependence, unspecified, uncomplicated]ChronicUnclassified (1 source)History of amputation of right foot; Translations: [History of partial amputation of toe of right foot]Unclassified (1 source)CHRN KIDNEY DISEASE STG 3 UNSP; Translations: [CHRN KIDNEY DISEASE STG 3 UNSP]Onset: 63-46-7074Yqmnulmnrdqq (1 source)CONTACT W/AND (SUSP) EXPOS COVID-19; Translations: [CONTACT W/AND (SUSP) EXPOS COVID-19]Onset: 65-13-3902Wymazdzaruju (6 sources)Please consult to manage Hemodialysis.Unclassified (6 [...] Translations: [Valgus deformity, not elsewhere classified,left ankle]Onset: 91-39-5246Rsesqheo Deficiency and other anemia (1 source)Iron deficiency anemia, unspecified; Translations: [IRON DEFICIENCY ANEMIA UNSPECIFIED]Onset: 97-71-6704XyfeudiyQbirp aftercare (7 sources)Other intermediate frame tender (current) drug therapy; Translations: [OTH FPC CURRENT DRUG THERAPY]Onset: 30-98-5271BhvxenxjBzsng circulatory disease (1 source)Critical lower limb xqdofuub73-35-1084FkysrmtiKbxfb connective tissue disease (1 source)Other muscle spasm; Translations: [OTHER MUSCLE SPASM]Onset: 24-67-0613FqbedgyrLlhgp diseases of veins and lymphatics (1 source)Venous insufficiency (chronic) (peripheral); Translations: [VENOUS INSUFF CHRONIC PERIPHERAL]Onset: 60-27-5420PwtkgagoDtffj injuries and conditions due to external causes (1 source)Other injury of unspecified body region, sequela; Translations: [OTHER INJURY UNS BODY REGION SEQ]Onset: 57-56-7730VrrhepzyFnfnj lower respiratory disease (5 sources)Shortness of breath; Translations: [SHORTNESS OF BREATH]Onset: 46-40-2721ZyqcdpitJvoeb lower respiratory disease (1 source)Other forms of dyspnea; Translations: [Other forms of dyspnea]Onset: 19-46-7435GbckicpfEysuo screening for suspected conditions (not mental disorders or infectious disease) (1 source)Encounter for screening for malignant neoplasm of prostate; Translations: [Encounter for screening for malignant neoplasm of prostate]Onset: 37-92-6820VahflrjtLcbiu skin disorders (1 source)Nail dystrophy; Translations: [NAIL DYSTROPHY]Onset: 06-27-2022 EpisodicResidual codes; unclassified (1 source)Localized edema; Translations: [LOCALIZED EDEMA]Onset: 06-05-2022 EpisodicResidual codes; unclassified (1 source)Acquired absence of other specified parts of digestive tract; Translations: [ACQ ABSENCE OTH PART DIGESTV TRACT]Onset: 57-84-7338Ogytutef Screening and history of mental health and substance abuse codes (1 source)Personal history of nicotine dependence; Translations: [PERSONAL HISTORY OF NICOTINE DEPEND]Onset: 65-81-0818NywolhfdOxmu and subcutaneous tissue infections (14 sources)Abscess of face; Translations: [Abscess of neck]Onset: 09-29-2017 02-38-3583UyuwnxttNuebonibigg; intervertebral disc disorders; other back problems (4 sources)Muscle spasm of back; Translations: [MUSCLE SPASM OF BACK]Onset: 87-88-5295Pzixpgtl Results Test NameValueInterpretationReference RangeFacilityGlucose Poct Glucometerson 73-69-9467Dfhyypx3Mbt4: Cleaned MeterNoUNC Health Physician GroupComment on above:Result Comment: PERFORMED BY: [address] [place] [address] PATHOLOGIST TRAVELING SECRETARY CARLOS BIRMINGHAM M.D.Performed By: #### HEPACUTE, HBCAB, HBSAB #### [facility] ,Glucose [Mass/Vol]85 mg/dLMartin Memorial Health Systems Physician GroupComment on above: Result Comment: Random Glucose Reference Range is dependent on time and content of last meal. Glucose of more than 200 mg/dL in a nonstressed, ambulatory subject supports the diagnosis of Diabetes Mellitus.Performed By: #### HEPACUTE, HBCAB, HBSAB #### [facility] ,Glucose [Mass/Vol]85 mg/dLNoUNC Health Physician GroupComment on above: Result Comment: Random Glucose Reference Range is dependent on time and content of last meal. Glucose of more than 200 mg/dL in a nonstressed, ambulatory subject supports the diagnosis of Diabetes Mellitus. PERFORMED BY: [place] [id number] PATHOLOGIST TRAVELING SECRETARY CARLOS BIRMINGHAM M.D.Performed By: #### HEPACUTE, HBCAB, HBSAB #### [facility] ,Glucose Poct Glucometerson 59-19-0385Lhqdzdk [Mass/Vol]296 mg/dLNoUNC Health Physician GroupComment on above:Result Comment: Random Glucose Reference Range is dependent on time and content of last meal. Glucose of more than 200 mg/dL in a nonstressed, ambulatory subject supports the diagnosis of Diabetes Mellitus. PERFORMED BY: [place] [id number] PATHOLOGIST TRAVELING SECRETARY CARLOS BIRMINGHAM M.D.Performed By: #### HEPACUTE, HBCAB, HBSAB #### [facility] ,Glucose [Mass/Vol]131 mg/dLMartin Memorial Health Systems Physician GroupComment on above: Result Comment: Random Glucose Reference Range is dependent on time and content of last meal. Glucose of more than 200 mg/dL in a nonstressed, ambulatory subject supports the diagnosis of Diabetes Mellitus. PERFORMED BY: [place] [id number] PATHOLOGIST TRAVELING SECRETARY CARLOS BIRMINGHAM M.D.Performed By: #### HEPACUTE, HBCAB, HBSAB #### [facility] ,Glucose [Mass/Vol]116 mg/dLMartin Memorial Health Systems Physician GroupComment on above: Result Comment: Random Glucose Reference Range is dependent on time and content of last meal. Glucose of more than 200 mg/dL in a nonstressed, ambulatory subject supports the diagnosis of Diabetes Mellitus. PERFORMED BY: [place] [id number] PATHOLOGIST TRAVELING SECRETARY CARLOS BIRMINGHAM M.D.Performed By: #### GLULS #### Point of Care testing ,Glucose [Mass/Vol]118 mg/dLMartin Memorial Health Systems Physician GroupComment on above: Result Comment: Random Glucose Reference Range is dependent on time and content of last meal. Glucose of more than 200 mg/dL in a nonstressed, ambulatory subject supports the diagnosis of Diabetes Mellitus. PERFORMED BY: [place] [address] PATHOLOGIST TRAVELING SECRETARY CARLOS BIRMINGHAM M.D.Performed By: #### GLULS #### Point of Care testing ,Glucose Poct Glucometerson 64-33-9251Askolle [Mass/Vol]75 mg/dLNoUNC Health Physician GroupComment on above:Result Comment: Random Glucose Reference Range is dependent on time and content of last meal. Glucose of more than 200 mg/dL in a nonstressed, ambulatory subject supports the diagnosis of Diabetes Mellitus. PERFORMED BY: [place] [id number] PATHOLOGIST TRAVELING SECRETARY CARLOS BIRMINGHAM M.D.Performed By: #### GLULS #### Point of Care testing ,Glucose [Mass/Vol]89 mg/dLNoUNC Health Physician GroupComment on above: Result Comment: Random Glucose Reference Range is dependent on time and content of last meal. Glucose of more than 200 mg/dL in a nonstressed, ambulatory subject supports the diagnosis of Diabetes Mellitus. PERFORMED BY: [place] [id number] PATHOLOGIST TRAVELING SECRETARY CARLOS BIRMINGHAM M.D.Performed By: #### HEPACUTE, HBCAB, HBSAB #### [facility] ,Glucose [Mass/Vol]114 mg/dLMartin Memorial Health Systems Physician GroupComment on above: Result Comment: Random Glucose Reference Range is dependent on time and content of last meal. Glucose of more than 200 mg/dL in a nonstressed, ambulatory subject supports the diagnosis of Diabetes Mellitus. PERFORMED BY: [address] [address] PATHOLOGIST TRAVELING SECRETARY CARLOS BIRMINGHAM M.D.Performed By: #### GLULS #### Point of Care testing ,Glucose [Mass/Vol]99 mg/dLNoUNC Health Physician [facility] CenterComment on above: Result Comment: Random Glucose Reference Range is dependent on time and content of last meal. Glucose of more than 200 mg/dL in a nonstressed, ambulatory subject supports the diagnosis of Diabetes Mellitus. PERFORMED BY: [place] [id number] PATHOLOGIST TRAVELING SECRETARY CARLOS BIRMINGHAM M.D.Performed By: #### GLULS #### Point of Care testing ,Glucose [Mass/Vol]80 mg/dLMartin Memorial Health Systems Physician GroupComment on above: Result Comment: Random Glucose Reference Range is dependent on time and content of last meal. Glucose of more than 200 mg/dL in a nonstressed, ambulatory subject supports the diagnosis of Diabetes Mellitus. PERFORMED BY: [address] [id number] PATHOLOGIST TRAVELING SECRETARY CARLOS BIRMINGHAM M.D.Performed By: #### HEPACUTE, HBCAB, HBSAB #### [facility] ,Glucose [Mass/Vol]66 mg/dLNoUNC Health Physician GroupComment on above: Result Comment: Random Glucose Reference Range is dependent on time and content of last meal. Glucose of more than 200 mg/dL in a nonstressed, ambulatory subject supports the diagnosis of Diabetes Mellitus. PERFORMED BY: [address] [address] PATHOLOGIST TRAVELING SECRETARY CARLOS BIRMINGHAM M.D.Performed By: #### GLULS #### Point of Care testing ,Renal Function Panelon 78-77-4643Cpkeccp [Mass/Vol]3.3 g/dLLow3.5-5.7The [facility] Physician GroupComment on above:Performed By: #### GLULS #### Point of Care testing ,Anion gap [Moles/Vol]13.4 mmol/LNormal6.0-15.0[facility] Comment on above:Performed By: #### GLULS #### Point of Care testing ,Calcium [Mass/Vol]10.1 mg/dLNormal8.6-10.3The [facility] Physician GroupComment on above:Performed By: #### GLULS #### Point of Care testing ,Chloride [Moles/Vol]98 mmol/OZtpzyi99-045Wje [facility] Physician GroupComment on above:Performed By: #### GLULS #### Point of Care testing ,CO2 [Moles/Vol]26.9 mmol/ZAuzoox49.0-31.0[facility] Physician GroupComment on above:Performed By: #### GLULS #### Point of Care testing ,Creatinine [Mass/Vol]5.69 mg/dLHigh0.70-1.30The [facility] Comment on above:Performed By: #### GLULS #### Point of Care testing ,Creatinine Clr Calc Zcsfwnlc59.17NormalThe [facility] Physician GroupComment on above:Result Comment: PERFORMED BY: [place] [id number] [address] [place] [address] PATHOLOGIST TRAVELING SECRETARY CARLOS BIRMINGHAM M.D.Performed By: #### GLULS #### Point of Care testing ,GFR/1.73 sq M.predicted MDRD (S/P/Bld) [Vol rate/Area]10.432 mL/min/{1.73_m2} NormalThe [facility] Physician GroupComment on above:Performed By: #### GLULS #### Point of Care testing ,Glucose [Mass/Vol]78 mg/vBCeswit53-963Ype [facility] Physician GroupComment on above:Result Comment: Random Glucose Reference Range is dependent on time and content of last meal. Glucose of more than 200 mg/dL in a nonstressed, ambulatory subject supports the diagnosis of Diabetes Mellitus. ADA recommended reference rangePerformed By: #### GLULS #### Point of Care testing ,Phosphate [Mass/Vol]4.5 mg/dLNormal2.5-4.5The [facility] Physician GroupComment on above:Performed By: #### GLULS #### Point of Care testing ,Potassium [Moles/Vol]4.3 mmol/LNormal3.5-5.1The [facility] Comment on above:Performed By: #### GLULS #### Point of Care testing ,Sodium [Moles/Vol]134 mmol/YDup819-796Sdd [facility] Physician GroupComment on above:Performed By: #### GLULS #### Point of Care testing ,Urea nitrogen [Mass/Vol]35 mg/dLHigh7-25ThPower County Hospital Physician GroupComment on above:Performed By: #### GLULS #### Point of Care testing ,Glucose Poct Glucometerson 41-76-8968Biaugfk [Mass/Vol]130 mg/dLNormSt. Joseph's Children[facility] Hospital Physician GroupComment on above:Result Comment: Random Glucose Reference Range is dependent on time and content of last meal. Glucose of more than 200 mg/dL in a nonstressed, ambulatory subject supports the diagnosis of Diabetes Mellitus. PERFORMED BY: [place] [id number] PATHOLOGIST TRAVELING SECRETARY CARLOS BIRMINGHAM M.D.Performed By: #### HEPACUTE, HBCAB, HBSAB #### [facility] ,Glucose [Mass/Vol]136 mg/dLNoUNC Health Physician [facility] Medical CenterComment on above: Result Comment: Random Glucose Reference Range is dependent on time and content of last meal. Glucose of more than 200 mg/dL in a nonstressed, ambulatory subject supports the diagnosis of Diabetes Mellitus. PERFORMED BY: [address] [address] PATHOLOGIST TRAVELING SECRETARY CARLOS BIRMINGHAM M.D.Performed By: #### HEPACUTE, HBCAB, HBSAB #### [facility] ,Glucose [Mass/Vol]105 mg/dLMartin Memorial Health Systems Physician [facility]ner Medical CenterComment on above: Result Comment: Random Glucose Reference Range is dependent on time and content of last meal. Glucose of more than 200 mg/dL in a nonstressed, ambulatory subject supports the diagnosis of Diabetes Mellitus. PERFORMED BY: [address] [address] PATHOLOGIST TRAVELING SECRETARY CARLOS BIRMINGHAM M.D.Performed By: #### HEPACUTE, HBCAB, HBSAB #### [facility] ,Glucose [Mass/Vol]69 mg/dLMartin Memorial Health Systems Physician GroupComment on above: Result Comment: Random Glucose Reference Range is dependent on time and content of last meal. Glucose of more than 200 mg/dL in a nonstressed, ambulatory subject supports the diagnosis of Diabetes Mellitus. PERFORMED BY: [place] [address] PATHOLOGIST TRAVELING SECRETARY CARLOS BIRMINGHAM M.D.Performed By: #### GLULS #### Point of Care testing ,Ytqkbwo2XftanaQtq [facility] Physician GroupComment on above:Result Comment: Glu2: WILL NOTIFY DR/RN PERFORMED BY: [place] [address] PATHOLOGIST TRAVELING SECRETARY CARLOS BIRMINGHAM M.D.Performed By: #### HEPACUTE, HBCAB, HBSAB #### [facility] ,Glucose [Mass/Vol]48 mg/dLOff scale lowHollywood Medical Center Physician GroupComment on above:Result Comment: Random Glucose Reference Range is dependent on time and content of last meal. Glucose of more than 200 mg/dL in a nonstressed, ambulatory subject supports the diagnosis of Diabetes Mellitus.Performed By: #### HEPACUTE, HBCAB, HBSAB #### [facility] ,Glucose [Mass/Vol]89 mg/dLMartin Memorial Health Systems Physician GroupComment on above: Result Comment: Random Glucose Reference Range is dependent on time and content of last meal. Glucose of more than 200 mg/dL in a nonstressed, ambulatory subject supports the diagnosis of Diabetes Mellitus. PERFORMED BY: [place] [address] PATHOLOGIST TRAVELING SECRETARY CARLOS BIRMINGHAM M.D.Performed By: #### GLULS #### Point of Care testing ,XR hip RT min 2V(w/wo pelvis)*on 19-76-1372KV hip RT min 2V(w/wo pelvis)* [facility] Main [place] [id number] XRay Report Signed Patient: Rashard Lyman MR#: [id number] : 1960 Acct:[id number] Age/Sex: 64 / M ADM Date: 12/30/24 Loc: Room: [address] [place] [address] Type: ADM IN Attending Dr: Clayton Cardenas [...] Santiago M.D. 01/12/2025 4:27 PM Dictation Location: [place] [address] Transcribed By: [facility] 01/12/251626 Dictated By: Ari Santiago DO 01/12/251625 Signed By: 01/12/25 [facility] Physician GroupXR knee RT 2Von 27-76-3601ME knee RT 2[facility] Main [place] [id number] XRay Report Signed Patient: Rashard Lyman MR#: [id number] : 1960 Acct:[id number] Age/Sex: 64 / M ADM Date: 12/30/24 Loc: Room: [address] [place] [address] Type: ADM IN Attending Dr: Clayton Cardenas [...] Santiago M.D. 01/12/2025 4:29 PM Dictation Location: [place] [address] Transcribed By: [facility] 01/12/25 1629 Dictated By: Ari Santiago DO 01/12/25 1628 Signed By: 01/12/25 1629NoUNC Health Physician [facility] Medical CenterXR wrist RT 2Von 78-31-4945BY wrist RT 2[facility] [place] [address] XRay Report Signed Patient: Rashard Lyman MR#: [id number] : 1960 Acct:[id number] Age/Sex: 64 / M ADM Date: 12/30/24 Loc: Room: [address] [place] [address] Type: ADM IN Attending Dr: Clayton Cardenas [...] Santiago M.D. 01/12/2025 4:30 PM Dictation Location: [place] [address] Transcribed By: [facility] 01/12/25 1630 Dictated By: Ari Santiago DO 01/12/25 1629 Signed By: 01/12/25 1630NoUNC Health Physician [facility] Medical CenterGlucose Poct Glucometerson 34-37-2590Jtxhqqn [Mass/Vol]182 mg/dLNoGuernsey Memorial HospitalComment on above:Result Comment: Random Glucose Reference Range is dependent on time and content of last meal. Glucose of more than 200 mg/dL in a nonstressed, ambulatory subject supports the diagnosis of Diabetes Mellitus. PERFORMED BY: [place] [address] PATHOLOGIST TRAVELING SECRETARY CARLOS BIRMINGHAM M.D.Performed By: #### HEPACUTE, HBCAB, HBSAB #### [facility] ,Glucose [Mass/Vol]98 mg/dLNoUNC Health Physician GroupComment on above: Result Comment: Random Glucose Reference Range is dependent on time and content of last meal. Glucose of more than 200 mg/dL in a nonstressed, ambulatory subject supports the diagnosis of Diabetes Mellitus. PERFORMED BY: [place] [phone] PATHOLOGIST TRAVELING SECRETARY CARLOS BIRMINGHAM M.D.Performed By: #### GLULS #### Point of Care testing ,Uifjuwi0Fpm0: Cleaned MeterNoUNC Health Physician GroupComment on above: Result Comment: PERFORMED BY: [place] [phone] PATHOLOGIST TRAVELING SECRETARY CARLOS BIRMINGHAM M.D.Performed By: #### RENAL #### [facility] [address] [place] [address] USAGlucose [Mass/Vol]97 mg/dLNoUNC Health Physician GroupComment on above:Result Comment: Random Glucose Reference Range is dependent on time and content of last meal. Glucose of more than 200 mg/dL in a nonstressed, ambulatory subject supports the diagnosis of Diabetes Mellitus.Performed By: #### RENAL #### [facility] [address] [place] [address] USAGlucose [Mass/Vol]114 mg/dLMartin Memorial Health Systems Physician GroupComment on above:Result Comment: Random Glucose Reference Range is dependent on time and content of last meal. Glucose of more than 200 mg/dL in a nonstressed, ambulatory subject supports the diagnosis of Diabetes Mellitus. PERFORMED BY: [place] [address] PATHOLOGIST TRAVELING SECRETARY CARLOS BIRMINGHAM M.D.Performed By: #### HEPACUTE, HBCAB, HBSAB #### [facility] ,Renal Function Panelon 18-54-4599Zriooeb [Mass/Vol]3.0 g/dLLow3.5-5.7The [facility] Physician GroupComment on above:Performed By: #### HEPACUTE, HBCAB, HBSAB #### [facility] ,Anion gap [Moles/Vol]12.8 mmol/LNormal6.0-15.0The [facility] Physician Group Comment on above:Performed By: #### HEPACUTE, HBCAB, HBSAB #### [facility] ,Calcium [Mass/Vol]9.9 mg/dLNormal8.6-10.3The [facility] Physician GroupComment on above:Performed By: #### HEPACUTE, HBCAB, HBSAB #### [facility] ,Chloride [Moles/Vol]99 mmol/LLdhksy15-913Nob [facility] Physician GroupComment on above:Performed By: #### HEPACUTE, HBCAB, HBSAB #### [facility] ,CO2 [Moles/Vol]28.7 mmol/ZBiqraj81.0-31.0The [facility] Physician GroupComment on above:Performed By: #### HEPACUTE, HBCAB, HBSAB #### [facility] ,Creatinine [Mass/Vol]6.77 mg/dLHigh0.70-1.30The [facility] Physician Group Comment on above:Performed By: #### HEPACUTE, HBCAB, HBSAB #### [facility] ,Creatinine Clr Calc Izpeplzf58.34NormalThPower County Hospital Physician GroupComment on above:Result Comment: PERFORMED BY: [place] [address] [place] [address] PATHOLOGIST TRAVELING SECRETARY CARLOS BIRMINGHAM M.D.Performed By: #### HEPACUTE, HBCAB, HBSAB #### [facility] ,GFR/1.73 sq M.predicted MDRD (S/P/Bld) [Vol rate/Area]8.468 mL/min/{1.73_m2} NormalThe [facility] Physician GroupComment on above:Performed By: #### HEPACUTE, HBCAB, HBSAB #### [facility] ,Glucose [Mass/Vol]115 mg/pSGmnt58-577Kgt [facility] Physician GroupComment on above:Result Comment: Random Glucose Reference Range is dependent on time and content of last meal. Glucose of more than 200 mg/dL in a nonstressed, ambulatory subject supports the diagnosis of Diabetes Mellitus. ADA recommended reference rangePerformed By: #### HEPACUTE, HBCAB, HBSAB #### [facility] ,Phosphate [Mass/Vol]4.5 mg/dLNormal2.5-4.5The [facility] Physician GroupComment on above:Performed By: #### HEPACUTE, HBCAB, HBSAB #### [facility] ,Potassium [Moles/Vol]4.5 mmol/LNormal3.5-5.1The [facility]ician [facility] Comment on above:Result Comment: Hemolysis is present at a level that could interfere with the result. Contact lab if redraw is requiredPerformed By: #### HEPACUTE, HBCAB, HBSAB #### [facility] ,Sodium [Moles/Vol]136 mmol/ZKhlhfh394-775Nwl [facility] Physician GroupComment on above:Performed By: #### HEPACUTE, HBCAB, HBSAB #### [facility] ,Urea nitrogen [Mass/Vol]44 mg/dLHigh7-25The [facility] Physician GroupComment on above:Performed By: #### HEPACUTE, HBCAB, HBSAB #### [facility] ,Glucose Poct Glucometerson 54-46-5880Dgvifbe [Mass/Vol]180 mg/dLNormalThe [facility] Physician GroupComment on above:Result Comment: Random Glucose Reference Range is dependent on time and content of last meal. Glucose of more than 200 mg/dL in a nonstressed, ambulatory subject supports the diagnosis of Diabetes Mellitus. PERFORMED BY: [place] [address] [place] [address] PATHOLOGIST TRAVELING SECRETARY CARLOS BIRMINGHAM M.D.Performed By: #### RENAL #### [facility] [address] [place] [address] USAGlucose [Mass/Vol]111 mg/dLMartin Memorial Health Systems Physician GroupComment on above:Result Comment: Random Glucose Reference Range is dependent on time and content of last meal. Glucose of more than 200 mg/dL in a nonstressed, ambulatory subject supports the diagnosis of Diabetes Mellitus. PERFORMED BY: [place] [address] PATHOLOGIST TRAVELING SECRETARY CARLOS BIRMINGHAM M.D.Performed By: #### HEPACUTE, HBCAB, HBSAB #### [facility] ,Dtzruer4Uld9: Cleaned MeterNoSuburban Community Hospital & Brentwood Hospital GroupComment on above: Result Comment: PERFORMED BY: [place] [address] PATHOLOGIST TRAVELING SECRETARY CARLOS BIRMINGHAM M.D.Performed By: #### HEPACUTE, HBCAB, HBSAB #### [facility] ,Glucose [Mass/Vol]130 mg/dLNoUNC Health Physician GroupComment on above: Result Comment: Random Glucose Reference Range is dependent on time and content of last meal. Glucose of more than 200 mg/dL in a nonstressed, ambulatory subject supports the diagnosis of Diabetes Mellitus.Performed By: #### HEPACUTE, HBCAB, HBSAB #### [facility] ,Glucose [Mass/Vol]79 mg/dLMartin Memorial Health Systems Physician GroupComment on above: Result Comment: Random Glucose Reference Range is dependent on time and content of last meal. Glucose of more than 200 mg/dL in a nonstressed, ambulatory subject supports the diagnosis of Diabetes Mellitus. PERFORMED BY: [place] [address] PATHOLOGIST TRAVELING SECRETARY CARLOS BIRMINGHAM M.D.Performed By: #### RENAL #### [place] [address] USAGlucose Poct Glucometerson 28-57-0276Eqlpjdy [Mass/Vol]187 mg/dLNoUNC Health Physician GroupComment on above:Result Comment: Random Glucose Reference Range is dependent on time and content of last meal. Glucose of more than 200 mg/dL in a nonstressed, ambulatory subject supports the diagnosis of Diabetes Mellitus. PERFORMED BY: [address] [place] [id number] PATHOLOGIST TRAVELING SECRETARY CARLOS BIRMINGHAM M.D.Performed By: #### HEPACUTE, HBCAB, HBSAB #### [facility] ,Mnthmsg7Dyi7: Cleaned MeterMartin Memorial Health Systems Physician GroupComment on above: Result Comment: PERFORMED BY: [place] [address] PATHOLOGIST TRAVELING SECRETARY CARLOS BIRMINGHAM M.D.Performed By: #### HEPACUTE, HBCAB, HBSAB #### [facility] ,Glucose [Mass/Vol]198 mg/dLMartin Memorial Health Systems Physician GroupComment on above: Result Comment: Random Glucose Reference Range is dependent on time and content of last meal. Glucose of more than 200 mg/dL in a nonstressed, ambulatory subject supports the diagnosis of Diabetes Mellitus.Performed By: #### HEPACUTE, HBCAB, HBSAB #### [facility] ,Ucnuosa2Rmn2: Cleaned MeterMartin Memorial Health Systems Physician GroupComment on above: Result Comment: PERFORMED BY: [place] [id number] PATHOLOGIST TRAVELING SECRETARY CARLOS BIRMINGHAM M.D.Performed By: #### GLULS #### Point of Care testing ,Glucose [Mass/Vol]101 mg/dLMartin Memorial Health Systems Physician GroupComment on above: Result Comment: Random Glucose Reference Range is dependent on time and content of last meal. Glucose of more than 200 mg/dL in a nonstressed, ambulatory subject supports the diagnosis of Diabetes Mellitus.Performed By: #### GLULS #### Point of Care testing ,Qfiwssx6Ixc9: Cleaned MeterMartin Memorial Health Systems Physician GroupComment on above: Result Comment: PERFORMED BY: [address] [place] [address] PATHOLOGIST TRAVELING SECRETARY CARLOS BIRMINGHAM M.D.Performed By: #### GLULS #### Point of Care testing ,Glucose [Mass/Vol]61 mg/dLNormalThe [facility] Physician GroupComment on above: Result Comment: Random Glucose Reference Range is dependent on time and content of last meal. Glucose of more than 200 mg/dL in a nonstressed, ambulatory subject supports the diagnosis of Diabetes Mellitus.Performed By: #### GLULS #### Point of Care testing ,Complete Blood Count Auto Diffon 00-48-2197Lgvotjsvz (Bld) [#/Vol]0.1 10*3/uL Normal0.0-0.2The [facility] Physician GroupComment on above:Result Comment: PERFORMED BY: [facility] [address] [place] [address] PATHOLOGIST TRAVELING SECRETARY CARLOS BIRMINGHAM M.D.Performed By: #### HEPACUTE, HBCAB, HBSAB #### [facility] ,Basophils/100 WBC (Bld)1.1 %Normal.The [facility] Physician GroupComment on above:Performed By: #### HEPACUTE, HBCAB, HBSAB #### [facility] ,Eosinophils (Bld) [#/Vol]0.5 10*3/uLHigh0.0-0.45The [facility] Physician Group Comment on above:Performed By: #### HEPACUTE, HBCAB, HBSAB #### [facility] ,Eosinophils/100 WBC (Bld)6.1 %Normal.The [facility] Physician GroupComment on above:Performed By: #### HEPACUTE, HBCAB, HBSAB #### [facility] ,Erythrocyte distribution width (RBC) [Ratio]14.5 %Xjlgui36.0-14.8The [facility] Physician GroupComment on above:Performed By: #### HEPACUTE, HBCAB, HBSAB #### [facility] ,Hematocrit (Bld) [Volume fraction]24.9 %Low38.8-50.0The [facility] Physician GroupComment on above:Performed By: #### HEPACUTE, HBCAB, HBSAB #### [facility] ,Hemoglobin (Bld) [Mass/Vol]8.2 g/dLLow13.0-17.0The [facility] Physician Group Comment on above:Performed By: #### HEPACUTE, HBCAB, HBSAB #### [facility] ,Lymphocytes (Bld) [#/Vol]1.8 10*3/uLNormal1.00-4.8The [facility] Physician Group Comment on above:Performed By: #### HEPACUTE, HBCAB, HBSAB #### [facility] ,Lymphocytes/100 WBC (Bld)21.3 %Normal.The [facility] Physician GroupComment on above:Performed By: #### HEPACUTE, HBCAB, HBSAB #### [facility] ,MCH (RBC) [Entitic mass]29.3 agLzdltv56.5-35.2The [facility]ician [facility] Comment on above:Performed By: #### HEPACUTE, HBCAB, HBSAB #### [facility] ,MCV (RBC) [Entitic vol]88.6 nLTtrzjx53.5-101The [facility] Physician Group Comment on above:Performed By: #### HEPACUTE, HBCAB, HBSAB #### [facility] ,Mean Corpuscular HGB Conc33.0 g/tIAdxbho53.5-35.6The [facility]ician [facility] Comment on above:Performed By: #### HEPACUTE, HBCAB, HBSAB #### [facility] ,Monocytes (Bld) [#/Vol]0.9 10*3/uLHigh0.0-0.8The [facility]ician [facility] Comment on above:Performed By: #### HEPACUTE, HBCAB, HBSAB #### [facility] ,Monocytes/100 WBC (Bld)10.9 %Normal.The [facility] Physician GroupComment on above:Performed By: #### HEPACUTE, HBCAB, HBSAB #### [facility] ,Neutrophils (Bld) [#/Vol]5.1 10*3/uLNormal1.8-7.7The [facility]ician [facility] Comment on above:Performed By: #### HEPACUTE, HBCAB, HBSAB #### [facility] ,Neutrophils/100 WBC (Bld)60.6 %Normal.The [facility] Physician GroupComment on above:Performed By: #### HEPACUTE, HBCAB, HBSAB #### [facility] ,NRBC%0.1 /100{WBC}Normal0-0.5The [facility] Physician GroupComment on above: Performed By: #### HEPACUTE, HBCAB, HBSAB #### [facility] ,Platelet mean volume (Bld) [Entitic vol]6.0 fLLow6.6-10.1The [facility] Physician GroupComment on above:Performed By: #### HEPACUTE, HBCAB, HBSAB #### [facility] ,Platelets (Bld) [#/Vol]370 10*3/zZOinjht199-964Eqp [facility] Physician Group Comment on above:Performed By: #### HEPACUTE, HBCAB, HBSAB #### [facility] ,RBC (Bld) [#/Vol]2.82 10*6/uLLow3.90-5.60The [facility] Physician GroupComment on above:Performed By: #### HEPACUTE, HBCAB, HBSAB #### [facility] ,WBC (Bld) [#/Vol]8.4 10*3/uLNormal4.1-10.5The [facility] Physician GroupComment on above:Performed By: #### HEPACUTE, HBCAB, HBSAB #### [facility] ,White Blood Count8.4 [CFU]/mLNormal4.1-10.5The [facility] Physician GroupComment on above:Performed By: #### HEPACUTE, HBCAB, HBSAB #### [facility] ,Glucose Poct Glucometerson 80-09-5397Ytbtled [Mass/Vol]207 mg/dLMartin Memorial Health Systems Physician GroupComment on above:Result Comment: Random Glucose Reference Range is dependent on time and content of last meal. Glucose of more than 200 mg/dL in a nonstressed, ambulatory subject supports the diagnosis of Diabetes Mellitus. PERFORMED BY: [phone] PATHOLOGIST TRAVELING SECRETARY CARLOS BIRMINGHAM M.D.Performed By: #### RENAL #### [facility] [address] [place] [address] USAGlucose [Mass/Vol]99 mg/dLMartin Memorial Health Systems Physician GroupComment on above:Result Comment: Random Glucose Reference Range is dependent on time and content of last meal. Glucose of more than 200 mg/dL in a nonstressed, ambulatory subject supports the diagnosis of Diabetes Mellitus. PERFORMED BY: [place] [phone] PATHOLOGIST TRAVELING SECRETARY CARLOS BIRMINGHAM M.D.Performed By: #### RENAL, MG #### [facility] [address] [place] [address] FCKPmmaxxk2Xjf7: Cleaned MeterMartin Memorial Health Systems Physician GroupComment on above:Result Comment: PERFORMED BY: [place] [phone] PATHOLOGIST TRAVELING SECRETARY CARLOS BIRMINGHAM M.D.Performed By: #### GLULS #### Point of Care testing ,Glucose [Mass/Vol]122 mg/dLMartin Memorial Health Systems Physician GroupComment on above: Result Comment: Random Glucose Reference Range is dependent on time and content of last meal. Glucose of more than 200 mg/dL in a nonstressed, ambulatory subject supports the diagnosis of Diabetes Mellitus.Performed By: #### GLULS #### Point of Care testing ,Ulsvmey3Qzs7: Cleaned MeterNoUNC Health Physician GroupComment on above: Result Comment: PERFORMED BY: [place] [address] PATHOLOGIST TRAVELING SECRETARY CARLOS BIRMINGHAM M.D.Performed By: #### HEPACUTE, HBCAB, HBSAB #### [facility] ,Glucose [Mass/Vol]87 mg/dLNormalThe [facility] Physician GroupComment on above: Result Comment: Random Glucose Reference Range is dependent on time and content of last meal. Glucose of more than 200 mg/dL in a nonstressed, ambulatory subject supports the diagnosis of Diabetes Mellitus.Performed By: #### HEPACUTE, HBCAB, HBSAB #### [facility] ,Renal Function Panelon 53-09-4975Bfpekbn [Mass/Vol]3.1 g/dLLow3.5-5.7The [facility] Physician GroupComment on above:Performed By: #### RENAL #### [facility] [address] [place] [address] USAAnion gap [Moles/Vol]11.9 mmol/LNormal6.0-15.0The [facility] Physician GroupComment on above:Performed By: #### RENAL #### [facility] [address] [place] [address] USACalcium [Mass/Vol]10.4 mg/dLHigh8.6-10.3The [facility] Physician GroupComment on above:Performed By: #### RENAL #### [facility] [address] [place] [address] USAChloride [Moles/Vol]99 mmol/CHqybxu01-486Mae [facility] Physician GroupComment on above:Performed By: #### RENAL #### [facility] [address] [place] [address] USACO2 [Moles/Vol]27.2 mmol/KQkkpis71.0-31.0The [facility] Physician GroupComment on above:Performed By: #### RENAL #### [facility] [address] [place] [address] USACreatinine [Mass/Vol]5.10 mg/dLHigh0.70-1.30The [facility] Physician GroupComment on above:Performed By: #### RENAL #### [place] [address] USACreatinine Clr Calc Qouvlwhz56.08NormalThe [facility] Physician GroupComment on above:Result Comment: PERFORMED BY: [place] [address] PATHOLOGIST TRAVELING SECRETARY CARLOS BIRMINGHAM M.D.Performed By: #### RENAL #### [place] [address] USAGFR/1.73 sq M.predicted MDRD (S/P/Bld) [Vol rate/Area] 11.897 mL/min/{1.73_m2}NormalThe [facility] Physician GroupComment on above: Performed By: #### RENAL #### [place] [address] USAGlucose [Mass/Vol]90 mg/yDWrfqai03-534Pqp [facility] Physician GroupComment on above:Result Comment: Random Glucose Reference Range is dependent on time and content of last meal. Glucose of more than 200 mg/dL in a nonstressed, ambulatory subject supports the diagnosis of Diabetes Mellitus. ADA recommended reference rangePerformed By: #### RENAL #### [place] [address] USAPhosphate [Mass/Vol]4.1 mg/dLNormal2.5-4.5The [facility] Physician GroupComment on above:Performed By: #### RENAL #### [place] [address] USAPotassium [Moles/Vol]4.1 mmol/LNormal3.5-5.1The [facility] Physician GroupComment on above:Performed By: #### RENAL #### [place] [address] USASodium [Moles/Vol]134 mmol/QEjx490-409Ato [facility] Physician GroupComment on above:Performed By: #### RENAL #### [place] [address] USAUrea nitrogen [Mass/Vol]34 mg/dLHigh7-25The [facility] Physician GroupComment on above:Performed By: #### RENAL #### [place] [address] USAGlucose Poct Glucometerson 95-63-8237Frshobh9Jrk7: Cleaned MeterNoUNC Health Physician [facility]ner Medical CenterComment on above:Result Comment: PERFORMED BY: [place] [address] PATHOLOGIST TRAVELING SECRETARY CARLOS BIRMINGHAM M.D.Performed By: #### HEPACUTE, HBCAB, HBSAB #### [facility] ,Glucose [Mass/Vol]189 mg/dLNoUNC Health Physician GroupComment on above: Result Comment: Random Glucose Reference Range is dependent on time and content of last meal. Glucose of more than 200 mg/dL in a nonstressed, ambulatory subject supports the diagnosis of Diabetes Mellitus.Performed By: #### HEPACUTE, HBCAB, HBSAB #### [facility] ,Glucose [Mass/Vol]138 mg/dLMartin Memorial Health Systems Physician GroupComment on above: Result Comment: Random Glucose Reference Range is dependent on time and content of last meal. Glucose of more than 200 mg/dL in a nonstressed, ambulatory subject supports the diagnosis of Diabetes Mellitus. PERFORMED BY: [place] [address] PATHOLOGIST TRAVELING SECRETARY CARLOS BIRMINGHAM M.D.Performed By: #### GLULS #### Point of Care testing ,Glucose [Mass/Vol]131 mg/dLMartin Memorial Health Systems Physician GroupComment on above: Result Comment: Random Glucose Reference Range is dependent on time and content of last meal. Glucose of more than 200 mg/dL in a nonstressed, ambulatory subject supports the diagnosis of Diabetes Mellitus. PERFORMED BY: [place] [address] PATHOLOGIST TRAVELING SECRETARY CARLOS BIRMINGHAM M.D.Performed By: #### HEPACUTE, HBCAB, HBSAB #### [facility] ,Glucose [Mass/Vol]93 mg/dLMartin Memorial [facility] Systems Physician GroupComment on above: Result Comment: Random Glucose Reference Range is dependent on time and content of last meal. Glucose of more than 200 mg/dL in a nonstressed, ambulatory subject supports the diagnosis of Diabetes Mellitus. PERFORMED BY: [place] [address] PATHOLOGIST TRAVELING SECRETARY CARLOS BIRMINGHAM M.D.Performed By: #### HEPACUTE, HBCAB, HBSAB #### [facility] ,Glucose Poct Glucometerson 87-09-7887Xdtpcjj [Mass/Vol]273 mg/dLMartin Memorial [facility] Systems Physician GroupComment on above:Result Comment: Random Glucose Reference Range is dependent on time and content of last meal. Glucose of more than 200 mg/dL in a nonstressed, ambulatory subject supports the diagnosis of Diabetes Mellitus. PERFORMED BY: [place] [address] PATHOLOGIST TRAVELING SECRETARY CARLOS BIRMINGHAM M.D.Performed By: #### HEPACUTE, HBCAB, HBSAB #### [facility] ,Glucose [Mass/Vol]147 mg/dLMartin Memorial Health Systems Physician GroupComment on above: Result Comment: Random Glucose Reference Range is dependent on time and content of last meal. Glucose of more than 200 mg/dL in a nonstressed, ambulatory subject supports the diagnosis of Diabetes Mellitus. PERFORMED BY: [place] [address] PATHOLOGIST TRAVELING SECRETARY CARLOS BIRMINGHAM M.D.Performed By: #### HEPACUTE, HBCAB, HBSAB #### [facility] ,Tlnpywk5Wap4: Cleaned MeterNoUNC Health Physician GroupComment on above: Result Comment: PERFORMED BY: [place] [address] PATHOLOGIST TRAVELING SECRETARY CARLOS BIRMINGHAM M.D.Performed By: #### HEPACUTE, HBCAB, HBSAB #### [facility] ,Glucose [Mass/Vol]169 mg/dLMartin Memorial Health Systems Physician GroupComment on above: Result Comment: Random Glucose Reference Range is dependent on time and content of last meal. Glucose of more than 200 mg/dL in a nonstressed, ambulatory subject supports the diagnosis of Diabetes Mellitus.Performed By: #### HEPACUTE, HBCAB, HBSAB #### [facility] ,Glucose [Mass/Vol]99 mg/dLNoUNC Health Physician GroupComment on above: Result Comment: Random Glucose Reference Range is dependent on time and content of last meal. Glucose of more than 200 mg/dL in a nonstressed, ambulatory subject supports the diagnosis of Diabetes Mellitus. PERFORMED BY: [address] [place] [address] PATHOLOGIST TRAVELING SECRETARY CARLOS BIRMINGHAM M.D.Performed By: #### HEPACUTE, HBCAB, HBSAB #### [facility] ,Diff and CBCon 86-76-6425Mgiiiocfotdi Ql (Bld)SlightNormSt. Joseph's Children's Hospital Physician GroupComment on above:Performed By: #### HEPACUTE, HBCAB, HBSAB #### [facility] ,Band form neutrophils/100 WBC (Bld)4 %Normal0-5The [facility] Comment on above:Performed By: #### HEPACUTE, HBCAB, HBSAB #### [facility] ,Eosinophils/100 WBC (Bld)5 %High1-3The [facility] Physician GroupComment on above:Performed By: #### HEPACUTE, HBCAB, HBSAB #### [facility] ,Erythrocyte distribution width (RBC) [Ratio]14.2 %Eybczh46.0-14.8The [facility] Physician GroupComment on above:Performed By: #### HEPACUTE, HBCAB, HBSAB #### [facility] ,Hematocrit (Bld) [Volume fraction]25.2 %Low38.8-50.0The [facility] Physician GroupComment on above:Performed By: #### HEPACUTE, HBCAB, HBSAB #### [facility] ,Hemoglobin (Bld) [Mass/Vol]8.3 g/dLLow13.0-17.0The [facility] Comment on above:Performed By: #### HEPACUTE, HBCAB, HBSAB #### [facility] ,Large PlateletsSFormerly [facility] Physician GroupComment on above:Result Comment: PERFORMED BY: [facility] [address] PATHOLOGIST TRAVELING SECRETARY CARLOS BIRMINGHAM M.D.Performed By: #### HEPACUTE, HBCAB, HBSAB #### [facility] ,Lymphocytes/100 WBC (Bld)17 %Qzx83-87Xfn [facility] Physician GroupComment on above:Performed By: #### HEPACUTE, HBCAB, HBSAB #### [facility] ,MCH (RBC) [Entitic mass]29.1 klKzvrtb39.5-35.2The [facility] Comment on above:Performed By: #### HEPACUTE, HBCAB, HBSAB #### [facility] ,MCV (RBC) [Entitic vol]88.7 cCAircpe93.5-101The [facility] Comment on above:Performed By: #### HEPACUTE, HBCAB, HBSAB #### [facility] ,Mean Corpuscular HGB Conc32.8 g/fZPlihgm60.5-35.6The [facility] Comment on above:Performed By: #### HEPACUTE, HBCAB, HBSAB #### [facility] ,MicrocytosisSFormerly [facility] Physician GroupComment on above:Performed By: #### HEPACUTE, HBCAB, HBSAB #### [facility] ,Monocytes/100 WBC (Bld)6 %Normal2-11The [facility] Physician GroupComment on above:Performed By: #### HEPACUTE, HBCAB, HBSAB #### [facility] ,Myelocytes1 %High0-0The [facility] Physician GroupComment on above:Performed By: #### HEPACUTE, HBCAB, HBSAB #### [facility] ,Platelet EstimateNormalNormAdventHealth DeLand Physician GroupComment on above:Performed By: #### HEPACUTE, HBCAB, HBSAB #### [facility] ,Platelet mean volume (Bld) [Entitic vol]6.3 fLLow6.6-10.1The [facility] Physician GroupComment on above:Performed By: #### HEPACUTE, HBCAB, HBSAB #### [facility] ,Platelets (Bld) [#/Vol]349 10*3/xHOazdwf905-315Mjr [facility] Comment on above:Performed By: #### HEPACUTE, HBCAB, HBSAB #### [facility] ,PoikilocytosisSFormerly [facility] Physician GroupComment on above: Performed By: #### HEPACUTE, HBCAB, HBSAB #### [facility] ,PolychromasiaSFormerly [facility] Physician GroupComment on above: Performed By: #### HEPACUTE, HBCAB, HBSAB #### [facility] ,RBC (Bld) [#/Vol]2.84 10*6/uLLow3.90-5.60The [facility] Physician GroupComment on above:Performed By: #### HEPACUTE, HBCAB, HBSAB #### [facility] ,Segmented neutrophils/100 WBC (Bld)68 %Jktndg95-37Gdu [facility] Physician [facility] Comment on above:Performed By: #### HEPACUTE, HBCAB, HBSAB #### [facility] ,StomatocytesSFormerly [facility] Physician GroupComment on above:Performed By: #### HEPACUTE, HBCAB, HBSAB #### [facility] ,WBC (Bld) [#/Vol]9.3 10*3/uLNormal4.1-10.5The [facility] Physician GroupComment on above:Performed By: #### HEPACUTE, HBCAB, HBSAB #### [facility] ,White Blood Count9.3 [CFU]/mLNormal4.1-10.5The [facility] Physician [facility] CenterComment on above:Performed By: #### HEPACUTE, HBCAB, HBSAB #### [facility] ,Glucose Poct Glucometerson 55-00-2072Hstzrrb [Mass/Vol]209 mg/dLNoUNC Health Physician [facility] CenterComment on above:Result Comment: Random Glucose Reference Range is dependent on time and content of last meal. Glucose of more than 200 mg/dL in a nonstressed, ambulatory subject supports the diagnosis of Diabetes Mellitus. PERFORMED BY: [place] [phone] PATHOLOGIST TRAVELING SECRETARY CARLOS BIRMINGHAM M.D.Performed By: #### RENAL, MG #### [place] [address] USAGlucose [Mass/Vol]172 mg/dLNoUNC Health Physician [facility] Medical CenterComment on above:Result Comment: Random Glucose Reference Range is dependent on time and content of last meal. Glucose of more than 200 mg/dL in a nonstressed, ambulatory subject supports the diagnosis of Diabetes Mellitus. PERFORMED BY: [place] [phone] PATHOLOGIST TRAVELING SECRETARY CARLOS BIRMINGHAM M.D.Performed By: #### GLULS #### Point of Care testing ,Glucose [Mass/Vol]121 mg/dLNoUNC Health Physician [facility] Medical CenterComment on above: Result Comment: Random Glucose Reference Range is dependent on time and content of last meal. Glucose of more than 200 mg/dL in a nonstressed, ambulatory subject supports the diagnosis of Diabetes Mellitus. PERFORMED BY: [place] [phone] PATHOLOGIST TRAVELING SECRETARY CARLOS BIRMINGHAM M.D.Performed By: #### HEPACUTE, HBCAB, HBSAB #### [facility] ,Glucose [Mass/Vol]86 mg/dLMartin Memorial Health Systems Physician GroupComment on above: Result Comment: Random Glucose Reference Range is dependent on time and content of last meal. Glucose of more than 200 mg/dL in a nonstressed, ambulatory subject supports the diagnosis of Diabetes Mellitus. PERFORMED BY: [address] [place] [address] PATHOLOGIST TRAVELING SECRETARY CARLOS BIRMINGHAM M.D.Performed By: #### HEPACUTE, HBCAB, HBSAB #### [facility] ,Complete Blood Count Auto Diffon 90-77-6256Davcnnkki (Bld) [#/Vol]0.2 10*3/uL Normal0.0-0.2The [facility] Physician GroupComment on above:Result Comment: PERFORMED BY: [address] [place] [address] PATHOLOGIST TRAVELING SECRETARY CARLOS BIRMINGHAM M.D.Performed By: #### HEPACUTE, HBCAB, HBSAB #### [facility] ,Basophils/100 WBC (Bld)1.3 %Normal.The [facility] Physician GroupComment on above:Performed By: #### HEPACUTE, HBCAB, HBSAB #### [facility] ,Eosinophils (Bld) [#/Vol]0.6 10*3/uLHigh0.0-0.45The [facility] Comment on above:Performed By: #### HEPACUTE, HBCAB, HBSAB #### [facility] ,Eosinophils/100 WBC (Bld)4.6 %Normal.The [facility] Physician GroupComment on above:Performed By: #### HEPACUTE, HBCAB, HBSAB #### [facility] ,Erythrocyte distribution width (RBC) [Ratio]14.0 %Lrhzfb26.0-14.8The [facility] Physician GroupComment on above:Performed By: #### HEPACUTE, HBCAB, HBSAB #### [facility] ,Hematocrit (Bld) [Volume fraction]27.3 %Low38.8-50.0The [facility] Physician GroupComment on above:Performed By: #### HEPACUTE, HBCAB, HBSAB #### [facility] ,Hemoglobin (Bld) [Mass/Vol]8.9 g/dLLow13.0-17.0The [facility] Comment on above:Performed By: #### HEPACUTE, HBCAB, HBSAB #### [facility] ,Lymphocytes (Bld) [#/Vol]2.6 10*3/uLNormal1.00-4.8The [facility] Comment on above:Performed By: #### HEPACUTE, HBCAB, HBSAB #### [facility] ,Lymphocytes/100 WBC (Bld)20.4 %Normal.The [facility] Physician GroupComment on above:Performed By: #### HEPACUTE, HBCAB, HBSAB #### [facility] ,MCH (RBC) [Entitic mass]28.9 azIzzjtc47.5-35.2The [facility] Comment on above:Performed By: #### HEPACUTE, HBCAB, HBSAB #### [facility] ,MCV (RBC) [Entitic vol]88.7 oVJryysi70.5-101The [facility] Comment on above:Performed By: #### HEPACUTE, HBCAB, HBSAB #### [facility] ,Mean Corpuscular HGB Conc32.6 g/xDGgitqh47.5-35.6The [facility] Comment on above:Performed By: #### HEPACUTE, HBCAB, HBSAB #### [facility] ,Monocytes (Bld) [#/Vol]0.9 10*3/uLHigh0.0-0.8The [facility] Comment on above:Performed By: #### HEPACUTE, HBCAB, HBSAB #### [facility] ,Monocytes/100 WBC (Bld)7.1 %Normal.The [facility] Physician GroupComment on above:Performed By: #### HEPACUTE, HBCAB, HBSAB #### [facility] ,Neutrophils (Bld) [#/Vol]8.5 10*3/uLHigh1.8-7.7The [facility] Comment on above:Performed By: #### HEPACUTE, HBCAB, HBSAB #### [facility] ,Neutrophils/100 WBC (Bld)66.6 %Normal.The [facility] Physician GroupComment on above:Performed By: #### HEPACUTE, HBCAB, HBSAB #### [facility] ,NRBC%0.0 /100{WBC}Normal0-0.5The [facility] Physician GroupComment on above: Performed By: #### HEPACUTE, HBCAB, HBSAB #### [facility] ,Platelet mean volume (Bld) [Entitic vol]6.8 fLNormal6.6-10.1The [facility] Physician GroupComment on above:Performed By: #### HEPACUTE, HBCAB, HBSAB #### [facility] ,Platelets (Bld) [#/Vol]381 10*3/tIVvxrhm312-060Yvv [facility] Comment on above:Performed By: #### HEPACUTE, HBCAB, HBSAB #### [facility] ,RBC (Bld) [#/Vol]3.08 10*6/uLLow3.90-5.60The [facility] Physician GroupComment on above:Performed By: #### HEPACUTE, HBCAB, HBSAB #### [facility] ,WBC (Bld) [#/Vol]12.7 10*3/uLHigh4.1-10.5The [facility] Physician GroupComment on above:Performed By: #### HEPACUTE, HBCAB, HBSAB #### [facility] ,White Blood Count12.7 [CFU]/mLHigh4.1-10.5The [facility] Physician GroupComment on above:Performed By: #### HEPACUTE, HBCAB, HBSAB #### [facility] ,Glucose Poct Glucometerson 50-95-4666Ivgwpbi [Mass/Vol]155 mg/dLMartin Memorial Health Systems Physician GroupComment on above:Result Comment: Random Glucose Reference Range is dependent on time and content of last meal. Glucose of more than 200 mg/dL in a nonstressed, ambulatory subject supports the diagnosis of Diabetes Mellitus. PERFORMED BY: [place] [address] PATHOLOGIST TRAVELING SECRETARY CARLOS BIRMINGHAM M.D.Performed By: #### GLULS #### Point of Care testing ,Glucose [Mass/Vol]81 mg/dLMartin Memorial Health Systems Physician GroupComment on above: Result Comment: Random Glucose Reference Range is dependent on time and content of last meal. Glucose of more than 200 mg/dL in a nonstressed, ambulatory subject supports the diagnosis of Diabetes Mellitus. PERFORMED BY: [place] [address] PATHOLOGIST TRAVELING SECRETARY CARLOS BIRMINGHAM M.D.Performed By: #### GLULS #### Point of Care testing ,Iiucfuh2Tix7: Cleaned MeterNoUNC Health Physician GroupComment on above: Result Comment: PERFORMED BY: [place] [address] PATHOLOGIST TRAVELING SECRETARY CARLOS BIRMINGHAM M.D.Performed By: #### RENAL #### [facility] [address] [place] [address] USAGlucose [Mass/Vol]120 mg/dLMartin Memorial Health Systems Physician GroupComment on above:Result Comment: Random Glucose Reference Range is dependent on time and content of last meal. Glucose of more than 200 mg/dL in a nonstressed, ambulatory subject supports the diagnosis of Diabetes Mellitus.Performed By: #### RENAL #### [facility] [address] [place] [address] USAGlucose [Mass/Vol]111 mg/dLMartin [facility] Physician GroupComment on above:Result Comment: Random Glucose Reference Range is dependent on time and content of last meal. Glucose of more than 200 mg/dL in a nonstressed, ambulatory subject supports the diagnosis of Diabetes Mellitus. PERFORMED BY: [place] [address] PATHOLOGIST TRAVELING SECRETARY CARLOS BIRMINGHAM M.D.Performed By: #### RENAL #### [address] [address] USARenal Function Panelon [id number] [Mass/Vol]3.2 g/dLLow3.5-5.7The [facility] Physician GroupComment on above:Performed By: #### HEPACUTE, HBCAB, HBSAB #### [facility] ,Anion gap [Moles/Vol]13.1 mmol/LNormal6.0-15.0The [facility] Comment on above:Performed By: #### HEPACUTE, HBCAB, HBSAB #### [facility] ,Calcium [Mass/Vol]10.0 mg/dLNormal8.6-10.3The [facility] Physician GroupComment on above:Performed By: #### HEPACUTE, HBCAB, HBSAB #### [facility] ,Chloride [Moles/Vol]97 mmol/TCem79-252Dtl [facility] Physician [facility] CenterComment on above:Performed By: #### HEPACUTE, HBCAB, HBSAB #### [facility] ,CO2 [Moles/Vol]29.0 mmol/XHgtdjb38.0-31.0The [facility] Physician GroupComment on above:Performed By: #### HEPACUTE, HBCAB, HBSAB #### [facility] ,Creatinine [Mass/Vol]6.38 mg/dLHigh0.70-1.30The [facility] Physician [facility] Comment on above:Performed By: #### HEPACUTE, HBCAB, HBSAB #### [facility] ,Creatinine Clr Calc Mjofdppy15.00NormalThe [facility] Physician GroupComment on above:Result Comment: PERFORMED BY: [address] [address] PATHOLOGIST TRAVELING SECRETARY CARLOS S VINNIE M.D.Performed By: #### HEPACUTE, HBCAB, HBSAB #### [facility] ,GFR/1.73 sq M.predicted MDRD (S/P/Bld) [Vol rate/Area]9.094 mL/min/{1.73_m2} NormalThe [facility] Physician GroupComment on above:Performed By: #### HEPACUTE, HBCAB, HBSAB #### [facility] ,Glucose [Mass/Vol]150 mg/sIOxgh81-169Vup [facility] Physician GroupComment on above:Result Comment: Random Glucose Reference Range is dependent on time and content of last meal. Glucose of more than 200 mg/dL in a nonstressed, ambulatory subject supports the diagnosis of Diabetes Mellitus. ADA recommended reference rangePerformed By: #### HEPACUTE, HBCAB, HBSAB #### [facility] ,Phosphate [Mass/Vol]4.8 mg/dLHigh2.5-4.5The [facility] Physician GroupComment on above:Performed By: #### HEPACUTE, HBCAB, HBSAB #### [facility] ,Potassium [Moles/Vol]4.1 mmol/LNormal3.5-5.1The [facility] Comment on above:Performed By: #### HEPACUTE, HBCAB, HBSAB #### [facility] ,Sodium [Moles/Vol]135 mmol/MGpx770-881Sai [facility] Physician GroupComment on above:Performed By: #### HEPACUTE, HBCAB, HBSAB #### [facility] ,Urea nitrogen [Mass/Vol]47 mg/dLHigh7-25The [facility] Physician GroupComment on above:Performed By: #### HEPACUTE, HBCAB, HBSAB #### [facility] ,Glucose Poct Glucometerson 83-93-3305Kegbmln [Mass/Vol]259 mg/dLNormalThe [facility] Physician GroupComment on above:Result Comment: Random Glucose Reference Range is dependent on time and content of last meal. Glucose of more than 200 mg/dL in a nonstressed, ambulatory subject supports the diagnosis of Diabetes Mellitus. PERFORMED BY: [place] [address] PATHOLOGIST TRAVELING SECRETARY CARLOS BIRMINGHAM M.D.Performed By: #### HEPACUTE, HBCAB, HBSAB #### [facility] ,Ujedrza5Fjs2: Cleaned MeterMartin Memorial Health Systems Physician GroupComment on above: Result Comment: PERFORMED BY: [place] [address] PATHOLOGIST TRAVELING SECRETARY CARLOS BIRMINGHAM M.D.Performed By: #### GLULS #### Point of Care testing ,Glucose [Mass/Vol]144 mg/dLMartin Memorial [facility] Systems Physician GroupComment on above: Result Comment: Random Glucose Reference Range is dependent on time and content of last meal. Glucose of more than 200 mg/dL in a nonstressed, ambulatory subject supports the diagnosis of Diabetes Mellitus.Performed By: #### GLULS #### Point of Care testing ,Glucose [Mass/Vol]157 mg/dLMartin Memorial Health Systems Physician GroupComment on above: Result Comment: Random Glucose Reference Range is dependent on time and content of last meal. Glucose of more than 200 mg/dL in a nonstressed, ambulatory subject supports the diagnosis of Diabetes Mellitus. PERFORMED BY: [place] [address] PATHOLOGIST TRAVELING SECRETARY CARLOS BIRMINGHAM M.D.Performed By: #### HEPACUTE, HBCAB, HBSAB #### [facility] ,Glucose [Mass/Vol]104 mg/dLMartin Memorial [facility] Physician GroupComment on above: Result Comment: Random Glucose Reference Range is dependent on time and content of last meal. Glucose of more than 200 mg/dL in a nonstressed, ambulatory subject supports the diagnosis of Diabetes Mellitus. PERFORMED BY: [place] [address] PATHOLOGIST TRAVELING SECRETARY CARLOS BIRMINGHAM M.D.Performed By: #### HEPACUTE, HBCAB, HBSAB #### [facility] ,Glucose Poct Glucometerson 10-99-8582Cudyspw [Mass/Vol]184 mg/dLMartin Memorial [facility] Systems Physician GroupComment on above:Result Comment: Random Glucose Reference Range is dependent on time and content of last meal. Glucose of more than 200 mg/dL in a nonstressed, ambulatory subject supports the diagnosis of Diabetes Mellitus. PERFORMED BY: [place] [address] PATHOLOGIST TRAVELING SECRETARY CARLOS BIRMINGHAM M.D.Performed By: #### HEPACUTE, HBCAB, HBSAB #### [facility] ,Vxeyyyn3Yli6: Cleaned MeterMartin Memorial Health Systems Physician GroupComment on above: Result Comment: PERFORMED BY: [place] [address] PATHOLOGIST TRAVELING SECRETARY CARLOS BIRMINGHAM M.D.Performed By: #### HEPACUTE, HBCAB, HBSAB #### [facility] ,Glucose [Mass/Vol]209 mg/dLMartin Memorial [facility] Systems Physician GroupComment on above: Result Comment: Random Glucose Reference Range is dependent on time and content of last meal. Glucose of more than 200 mg/dL in a nonstressed, ambulatory subject supports the diagnosis of Diabetes Mellitus.Performed By: #### HEPACUTE, HBCAB, HBSAB #### [facility] ,Ivkxzyx9Pzb6: Cleaned MeterMartin Memorial Health Systems Physician GroupComment on above: Result Comment: PERFORMED BY: [place] [address] PATHOLOGIST TRAVELING SECRETARY CARLOS BIRMINGHAM M.D.Performed By: #### GLULS #### Point of Care testing ,Glucose [Mass/Vol]212 mg/dLMartin Memorial Health Systems Physician GroupComment on above: Result Comment: Random Glucose Reference Range is dependent on time and content of last meal. Glucose of more than 200 mg/dL in a nonstressed, ambulatory subject supports the diagnosis of Diabetes Mellitus.Performed By: #### GLULS #### Point of Care testing ,Glucose [Mass/Vol]170 mg/dLNoUNC Health Physician GroupComment on above: Result Comment: Random Glucose Reference Range is dependent on time and content of last meal. Glucose of more than 200 mg/dL in a nonstressed, ambulatory subject supports the diagnosis of Diabetes Mellitus. PERFORMED BY: [place] [address] PATHOLOGIST TRAVELING SECRETARY CARLOS BIRMINGHAM M.D.Performed By: #### HEPACUTE, HBCAB, HBSAB #### [facility] ,Glucose Poct Glucometerson 71-25-2091Rlxgfhx [Mass/Vol]302 mg/dLNoUNC Health Physician GroupComment on above:Result Comment: Random Glucose Reference Range is dependent on time and content of last meal. Glucose of more than 200 mg/dL in a nonstressed, ambulatory subject supports the diagnosis of Diabetes Mellitus. PERFORMED BY: [place] [address] PATHOLOGIST TRAVELING SECRETARY CARLOS BIRMINGHAM M.D.Performed By: #### HEPACUTE, HBCAB, HBSAB #### [facility] ,Glucose [Mass/Vol]146 mg/dLNoUNC Health Physician GroupComment on above: Result Comment: Random Glucose Reference Range is dependent on time and content of last meal. Glucose of more than 200 mg/dL in a nonstressed, ambulatory subject supports the diagnosis of Diabetes Mellitus. PERFORMED BY: [place] [address] PATHOLOGIST TRAVELING SECRETARY CARLOS BIRMINGHAM M.D.Performed By: #### GLULS #### Point of Care testing ,Glucose [Mass/Vol]250 mg/dLNoUNC Health Physician GroupComment on above: Result Comment: Random Glucose Reference Range is dependent on time and content of last meal. Glucose of more than 200 mg/dL in a nonstressed, ambulatory subject supports the diagnosis of Diabetes Mellitus. PERFORMED BY: [place] [id number] PATHOLOGIST TRAVELING SECRETARY CARLOS BIRMINGHAM M.D.Performed By: #### GLULS #### Point of Care testing ,Glucose [Mass/Vol]126 mg/dLNormalThe [facility] Physician GroupComment on above: Result Comment: Random Glucose Reference Range is dependent on time and content of last meal. Glucose of more than 200 mg/dL in a nonstressed, ambulatory subject supports the diagnosis of Diabetes Mellitus. PERFORMED BY: [place] [address] PATHOLOGIST TRAVELING SECRETARY CARLOS BIRMINGHAM M.D.Performed By: #### GLULS #### Point of Care testing ,Renal Function Panelon [id number] [Mass/Vol]3.4 g/dLLow3.5-5.7The [facility] Physician GroupComment on above:Performed By: #### RENAL, MG #### [place] [address] USAAnion gap [Moles/Vol]15.3 mmol/LHigh6.0-15.0The [facility] Physician GroupComment on above:Performed By: #### RENAL, MG #### [place] [address] USACalcium [Mass/Vol]9.4 mg/dLNormal8.6-10.3The [facility] Physician GroupComment on above:Performed By: #### RENAL, MG #### [place] [address] USAChloride [Moles/Vol]95 mmol/PUoa89-309Vxl [facility] Physician GroupComment on above:Performed By: #### RENAL, MG #### [place] [address] USACO2 [Moles/Vol]27.6 mmol/EPndbrv22.0-31.0The [facility] Physician GroupComment on above:Performed By: #### RENAL, MG #### [place] [address] USACreatinine [Mass/Vol]5.49 mg/dLHigh0.70-1.30The [facility] Physician GroupComment on above:Performed By: #### RENAL, MG #### [place] [address] USACreatinine Clr Calc Zmjfzhtm32.47NormalThe [facility] Physician GroupComment on above:Result Comment: PERFORMED BY: [place] [address] PATHOLOGIST TRAVELING SECRETARY CARLOS BIRMINGHAM M.D.Performed By: #### RENAL, MG #### [place] [address] USAGFR/1.73 sq M.predicted MDRD (S/P/Bld) [Vol rate/Area] 10.890 mL/min/{1.73_m2}NormalThe [facility] Physician GroupComment on above: Performed By: #### RENAL, MG #### [place] [address] USAGlucose [Mass/Vol]205 mg/sPPwyh03-363Hqa [facility] Physician GroupComment on above:Result Comment: Random Glucose Reference Range is dependent on time and content of last meal. Glucose of more than 200 mg/dL in a nonstressed, ambulatory subject supports the diagnosis of Diabetes Mellitus. ADA recommended reference rangePerformed By: #### RENAL, MG #### [place] [address] USAPhosphate [Mass/Vol]4.8 mg/dLHigh2.5-4.5The [facility] Physician GroupComment on above:Performed By: #### RENAL, MG #### [place] [address] USAPotassium [Moles/Vol]3.9 mmol/LNormal3.5-5.1The [facility] Physician GroupComment on above:Performed By: #### RENAL, MG #### [place] [address] USASodium [Moles/Vol]134 mmol/NHug610-101Lgg [facility] Physician GroupComment on above:Performed By: #### RENAL, MG #### [place] [address] USAUrea nitrogen [Mass/Vol]42 mg/dLHigh7-25The [facility] Physician GroupComment on above:Performed By: #### RENAL, MG #### [facility] [address] [id number] USAComplete Blood Count Auto Diffon [id number] (Bld) [#/Vol]0.1 10*3/uLNormal0.0-0.2The [facility] Physician GroupComment on above: Result Comment: PERFORMED BY: [facility] [address] [id number] PATHOLOGIST TRAVELING SECRETARY CARLOS BIRMINGHAM M.D.Performed By: #### HEPACUTE, HBCAB, HBSAB #### [facility] ,Basophils/100 WBC (Bld)0.8 %Normal.The [facility] Physician GroupComment on above:Performed By: #### HEPACUTE, HBCAB, HBSAB #### [facility] ,Eosinophils (Bld) [#/Vol]0.4 10*3/uLNormal0.0-0.45The [facility] Physician [facility] Comment on above:Performed By: #### HEPACUTE, HBCAB, HBSAB #### [facility] ,Eosinophils/100 WBC (Bld)4.5 %Normal.The [facility] Physician GroupComment on above:Performed By: #### HEPACUTE, HBCAB, HBSAB #### [facility] ,Erythrocyte distribution width (RBC) [Ratio]14.2 %Tattwm52.0-14.8The [facility] Physician GroupComment on above:Performed By: #### HEPACUTE, HBCAB, HBSAB #### [facility] ,Hematocrit (Bld) [Volume fraction]28.1 %Low38.8-50.0The [facility] Physician GroupComment on above:Performed By: #### HEPACUTE, HBCAB, HBSAB #### [facility] ,Hemoglobin (Bld) [Mass/Vol]9.1 g/dLLow13.0-17.0The [facility] Physician [facility] Comment on above:Performed By: #### HEPACUTE, HBCAB, HBSAB #### [facility] ,Lymphocytes (Bld) [#/Vol]1.8 10*3/uLNormal1.00-4.8The [facility] Comment on above:Performed By: #### HEPACUTE, HBCAB, HBSAB #### [facility] ,Lymphocytes/100 WBC (Bld)19.4 %Normal.The [facility] Physician GroupComment on above:Performed By: #### HEPACUTE, HBCAB, HBSAB #### [facility] ,MCH (RBC) [Entitic mass]28.6 ksIftxuw43.5-35.2The [facility] Comment on above:Performed By: #### HEPACUTE, HBCAB, HBSAB #### [facility] ,MCV (RBC) [Entitic vol]88.5 fOVgjvaf30.5-101The [facility] Comment on above:Performed By: #### HEPACUTE, HBCAB, HBSAB #### [facility] ,Mean Corpuscular HGB Conc32.3 g/dLLow32.5-35.6The [facility] Comment on above:Performed By: #### HEPACUTE, HBCAB, HBSAB #### [facility] ,Monocytes (Bld) [#/Vol]1.4 10*3/uLHigh0.0-0.8The [facility] Comment on above:Performed By: #### HEPACUTE, HBCAB, HBSAB #### [facility] ,Monocytes/100 WBC (Bld)15.2 %Normal.The [facility] Physician GroupComment on above:Performed By: #### HEPACUTE, HBCAB, HBSAB #### [facility] ,Neutrophils (Bld) [#/Vol]5.5 10*3/uLNormal1.8-7.7The [facility] Comment on above:Performed By: #### HEPACUTE, HBCAB, HBSAB #### [facility] ,Neutrophils/100 WBC (Bld)60.1 %Normal.The [facility] Physician GroupComment on above:Performed By: #### HEPACUTE, HBCAB, HBSAB #### [facility] ,NRBC%0.1 /100{WBC}Normal0-0.5The [facility] Physician GroupComment on above: Performed By: #### HEPACUTE, HBCAB, HBSAB #### [facility] ,Platelet mean volume (Bld) [Entitic vol]6.4 fLLow6.6-10.1The [facility] Physician GroupComment on above:Performed By: #### HEPACUTE, HBCAB, HBSAB #### [facility] ,Platelets (Bld) [#/Vol]246 10*3/rJRzhhnk526-095Mmp [facility] Comment on above:Performed By: #### HEPACUTE, HBCAB, HBSAB #### [facility] ,RBC (Bld) [#/Vol]3.18 10*6/uLLow3.90-5.60The [facility] Physician GroupComment on above:Performed By: #### HEPACUTE, HBCAB, HBSAB #### [facility] ,WBC (Bld) [#/Vol]9.2 10*3/uLNormal4.1-10.5The [facility] Physician GroupComment on above:Performed By: #### HEPACUTE, HBCAB, HBSAB #### [facility] ,White Blood Count9.2 [CFU]/mLNormal4.1-10.5The [facility] Physician GroupComment on above:Performed By: #### HEPACUTE, HBCAB, HBSAB #### [facility] ,Comprehensive Metabolic Panelon 36-60-8883Hhtqrjl [Mass/Vol]3.1 g/dLLow3.5-5.7 The [facility] Physician GroupComment on above:Performed By: #### HEPACUTE, HBCAB, HBSAB #### [facility] ,Albumin/Globulin [Mass ratio]1.0 {ratio}NormalThe [facility] Comment on above:Performed By: #### HEPACUTE, HBCAB, HBSAB #### [facility] ,ALP [Catalytic activity/Vol]59 U/ZBrbgex34-626Tcs [facility] Comment on above:Performed By: #### HEPACUTE, HBCAB, HBSAB #### [facility] ,ALT [Catalytic activity/Vol]3 U/LLow7-52The [facility] Physician GroupComment on above:Performed By: #### HEPACUTE, HBCAB, HBSAB #### [facility] ,Anion gap [Moles/Vol]12.1 mmol/LNormal6.0-15.0The [facility] Comment on above:Performed By: #### HEPACUTE, HBCAB, HBSAB #### [facility] ,AST [Catalytic activity/Vol]21 U/LHsespo36-92Qoy [facility] Comment on above:Performed By: #### HEPACUTE, HBCAB, HBSAB #### [facility] ,Bilirubin [Mass/Vol]0.7 mg/dLNormal0.3-1.0The [facility] Physician GroupComment on above:Performed By: #### HEPACUTE, HBCAB, HBSAB #### [facility] ,Calcium [Mass/Vol]8.9 mg/dLNormal8.6-10.3The [facility] Physician GroupComment on above:Performed By: #### HEPACUTE, HBCAB, HBSAB #### [facility] ,Chloride [Moles/Vol]99 mmol/BIydrzn43-333Oci [facility] Physician GroupComment on above:Performed By: #### HEPACUTE, HBCAB, HBSAB #### [facility] ,CO2 [Moles/Vol]27.7 mmol/UOfbvry24.0-31.0The [facility] Physician GroupComment on above:Performed By: #### HEPACUTE, HBCAB, HBSAB #### [facility] ,Creatinine [Mass/Vol]4.23 mg/dLHigh0.70-1.30The [facility] Physician [facility] Comment on above:Performed By: #### HEPACUTE, HBCAB, HBSAB #### [facility] ,Creatinine Clr Calc Haokkimn10.76NoUNC Health Physician GroupComment on above:Performed By: #### HEPACUTE, HBCAB, HBSAB #### [facility] ,GFR/1.73 sq M.predicted MDRD (S/P/Bld) [Vol rate/Area]14.891 mL/min/{1.73_m2} NormalThe [facility] Physician GroupComment on above:Performed By: #### HEPACUTE, HBCAB, HBSAB #### [facility] ,Globulin (S) [Mass/Vol]3.1 g/dLNoUNC Health Physician GroupComment on above:Performed By: #### HEPACUTE, HBCAB, HBSAB #### [facility] ,Glucose [Mass/Vol]143 mg/rCNgov72-495Vfm [facility] Physician GroupComment on above:Result Comment: Random Glucose Reference Range is dependent on time and content of last meal. Glucose of more than 200 mg/dL in a nonstressed, ambulatory subject supports the diagnosis of Diabetes Mellitus. ADA recommended reference rangePerformed By: #### HEPACUTE, HBCAB, HBSAB #### [facility] ,Potassium [Moles/Vol]3.8 mmol/LNormal3.5-5.1The [facility] Comment on above:Performed By: #### HEPACUTE, HBCAB, HBSAB #### [facility] ,Protein [Mass/Vol]6.2 g/dLLow6.4-8.9The [facility] Physician GroupComment on above:Performed By: #### HEPACUTE, HBCAB, HBSAB #### [facility] ,Sodium [Moles/Vol]135 mmol/RVsz024-505Hni [facility] Physician GroupComment on above:Performed By: #### HEPACUTE, HBCAB, HBSAB #### [facility] ,Urea nitrogen [Mass/Vol]33 mg/dLGrant Memorial HospitalPower County Hospital Physician GroupComment on above:Performed By: #### HEPACUTE, HBCAB, HBSAB #### [facility] ,Glucose Poct Glucometerson 38-43-1004Oroodzu [Mass/Vol]272 mg/dLNoUNC Health Physician GroupComment on above:Result Comment: Random Glucose Reference Range is dependent on time and content of last meal. Glucose of more than 200 mg/dL in a nonstressed, ambulatory subject supports the diagnosis of Diabetes Mellitus. PERFORMED BY: [place] [address] PATHOLOGIST TRAVELING SECRETARY CARLOS BIRMINGHAM M.D.Performed By: #### GLULS #### Point of Care testing ,Glucose [Mass/Vol]262 mg/dLMartin Memorial [facility] Systems Physician [facility] CenterComment on above: Result Comment: Random Glucose Reference Range is dependent on time and content of last meal. Glucose of more than 200 mg/dL in a nonstressed, ambulatory subject supports the diagnosis of Diabetes Mellitus. PERFORMED BY: [place] [address] PATHOLOGIST TRAVELING SECRETARY CARLOS BIRMINGHAM M.D.Performed By: #### RENAL, MG #### [place] [address] USAGlucose [Mass/Vol]195 mg/dLMartin Memorial Health Systems Physician GroupComment on above:Result Comment: Random Glucose Reference Range is dependent on time and content of last meal. Glucose of more than 200 mg/dL in a nonstressed, ambulatory subject supports the diagnosis of Diabetes Mellitus. PERFORMED BY: [place] [address] PATHOLOGIST TRAVELING SECRETARY CARLOS BIRMINGHAM M.D.Performed By: #### RENAL, MG #### [place] [address] USAGlucose [Mass/Vol]170 mg/dLNoUNC Health Physician GroupComment on above:Result Comment: Random Glucose Reference Range is dependent on time and content of last meal. Glucose of more than 200 mg/dL in a nonstressed, ambulatory subject supports the diagnosis of Diabetes Mellitus. PERFORMED BY: [address] [address] [place] [address] PATHOLOGIST TRAVELING SECRETARY CARLOS BIRMINGHAM M.D.Performed By: #### GLULS #### Point of Care testing ,Prealbuminon 28-90-2173Pmtdmyxzvq [Mass/Vol]16.6 mg/dLLow17.0-34.0The [facility] Physician GroupComment on above:Result Comment: PERFORMED BY: [facility] [address] [place] [address] PATHOLOGIST TRAVELING SECRETARY CARLOS BIRMINGHAM M.D.Performed By: #### HEPACUTE, HBCAB, HBSAB #### [facility] ,Comprehensive Metabolic Panelon 09-43-4565Hzwftyy [Mass/Vol]3.1 g/dLLow3.5-5.7 The [facility] Physician GroupComment on above:Performed By: #### HEPACUTE, HBCAB, HBSAB #### [facility] ,Albumin/Globulin [Mass ratio]0.9 {ratio}NormalThe [facility] Comment on above:Performed By: #### HEPACUTE, HBCAB, HBSAB #### [facility] ,ALP [Catalytic activity/Vol]68 U/WBadpcx26-222Dib [facility] Comment on above:Performed By: #### HEPACUTE, HBCAB, HBSAB #### [facility] ,ALT [Catalytic activity/Vol]U/LLow7-52The [facility] Physician GroupComment on above:Performed By: #### HEPACUTE, HBCAB, HBSAB #### [facility] ,Anion gap [Moles/Vol]15.4 mmol/LHigh6.0-15.0The [facility] Comment on above:Performed By: #### HEPACUTE, HBCAB, HBSAB #### [facility] ,AST [Catalytic activity/Vol]22 U/WXfslgx32-65Hob [facility] Physician [facility] Comment on above:Performed By: #### HEPACUTE, HBCAB, HBSAB #### [facility] ,Bilirubin [Mass/Vol]0.5 mg/dLNormal0.3-1.0[facility] Physician GroupComment on above:Performed By: #### HEPACUTE, HBCAB, HBSAB #### [facility] ,Calcium [Mass/Vol]8.9 mg/dLNormal8.6-10.3The [facility] Physician GroupComment on above:Performed By: #### HEPACUTE, HBCAB, HBSAB #### [facility] ,Chloride [Moles/Vol]98 mmol/KBajyht21-799Nae [facility] Physician GroupComment on above:Performed By: #### HEPACUTE, HBCAB, HBSAB #### [facility] ,CO2 [Moles/Vol]25.5 mmol/WGdavfq13.0-31.0The [facility] Physician GroupComment on above:Performed By: #### HEPACUTE, HBCAB, HBSAB #### [facility] ,Creatinine [Mass/Vol]6.08 mg/dLHigh0.70-1.30The [facility] Physician [facility] Comment on above:Performed By: #### HEPACUTE, HBCAB, HBSAB #### [facility] ,Creatinine Clr Calc Afphqsbh00.59NoUNC Health Physician GroupComment on above:Performed By: #### HEPACUTE, HBCAB, HBSAB #### [facility] ,GFR/1.73 sq M.predicted MDRD (S/P/Bld) [Vol rate/Area]9.635 mL/min/{1.73_m2} NormalHollywood Medical Center Physician GroupComment on above:Performed By: #### HEPACUTE, HBCAB, HBSAB #### [facility] ,Globulin (S) [Mass/Vol]3.5 g/dLNoUNC Health Physician GroupComment on above:Performed By: #### HEPACUTE, HBCAB, HBSAB #### [facility] ,Glucose [Mass/Vol]108 mg/sVJqob30-741Wmt [facility] Physician GroupComment on above:Result Comment: Random Glucose Reference Range is dependent on time and content of last meal. Glucose of more than 200 mg/dL in a nonstressed, ambulatory subject supports the diagnosis of Diabetes Mellitus. ADA recommended reference rangePerformed By: #### HEPACUTE, HBCAB, HBSAB #### [facility] ,Potassium [Moles/Vol]3.9 mmol/LNormal3.5-5.1The [facility] Comment on above:Performed By: #### HEPACUTE, HBCAB, HBSAB #### [facility] ,Protein [Mass/Vol]6.6 g/dLNormal6.4-8.9The [facility] Physician GroupComment on above:Performed By: #### HEPACUTE, HBCAB, HBSAB #### [facility] ,Sodium [Moles/Vol]135 mmol/YGan972-890Kqt [facility] Physician GroupComment on above:Performed By: #### HEPACUTE, HBCAB, HBSAB #### [facility] ,Urea nitrogen [Mass/Vol]54 mg/dLHigh7-25The [facility] Physician GroupComment on above:Performed By: #### HEPACUTE, HBCAB, HBSAB #### [facility] ,Diff and CBCon 53-81-3690Kwsawuqozdbk Ql (Bld)ModerateNormalThe [facility] Physician GroupComment on above:Performed By: #### HEPACUTE, HBCAB, HBSAB #### [facility] ,Band form neutrophils/100 WBC (Bld)1 %Normal0-5The [facility] Comment on above:Performed By: #### HEPACUTE, HBCAB, HBSAB #### [facility] ,Eosinophils/100 WBC (Bld)8 %High1-3The [facility] Physician GroupComment on above:Performed By: #### HEPACUTE, HBCAB, HBSAB #### [facility] ,Erythrocyte distribution width (RBC) [Ratio]14.1 %Zvynjw92.0-14.8The [facility] Physician GroupComment on above:Performed By: #### HEPACUTE, HBCAB, HBSAB #### [facility] ,Hematocrit (Bld) [Volume fraction]29.7 %Low38.8-50.0The [facility] Physician GroupComment on above:Performed By: #### HEPACUTE, HBCAB, HBSAB #### [facility] ,Hemoglobin (Bld) [Mass/Vol]9.9 g/dLLow13.0-17.0The [facility] Comment on above:Performed By: #### HEPACUTE, HBCAB, HBSAB #### [facility] ,HypochromasiaSlightNormalThe [facility] Physician GroupComment on above: Performed By: #### HEPACUTE, HBCAB, HBSAB #### [facility] ,Lymphocytes/100 WBC (Bld)10 %Uvx73-47Wvl [facility] Physician GroupComment on above:Performed By: #### HEPACUTE, HBCAB, HBSAB #### [facility] ,MCH (RBC) [Entitic mass]29.1 muAtkrxp10.5-35.2The [facility] Comment on above:Performed By: #### HEPACUTE, HBCAB, HBSAB #### [facility] ,MCV (RBC) [Entitic vol]87.6 bKQvuqmc76.5-101The [facility] Comment on above:Performed By: #### HEPACUTE, HBCAB, HBSAB #### [facility] ,Mean Corpuscular HGB Conc33.3 g/gSAcrysu33.5-35.6The [facility] Comment on above:Performed By: #### HEPACUTE, HBCAB, HBSAB #### [facility] ,Metamyelocytes3 %High0-0The [facility] Physician GroupComment on above:Performed By: #### HEPACUTE, HBCAB, HBSAB #### [facility] ,MicrocytosisSFormerly [facility] Physician GroupComment on above:Performed By: #### HEPACUTE, HBCAB, HBSAB #### [facility] ,Monocytes/100 WBC (Bld)7 %Normal2-11The [facility] Physician GroupComment on above:Performed By: #### HEPACUTE, HBCAB, HBSAB #### [facility] ,Platelet EstimateNormalNormalMartin [facility] Physician GroupComment on above:Performed By: #### HEPACUTE, HBCAB, HBSAB #### [facility] ,Platelet mean volume (Bld) [Entitic vol]6.7 fLNormal6.6-10.1The [facility] Physician GroupComment on above:Performed By: #### HEPACUTE, HBCAB, HBSAB #### [facility] ,Platelet MorphologyNormalNormalMartin [facility] Physician GroupComment on above:Result Comment: PERFORMED BY: [address] [place] [address] PATHOLOGIST TRAVELING SECRETARY CARLOS BIRMINGHAM M.D.Performed By: #### HEPACUTE, HBCAB, HBSAB #### [facility] ,Platelets (Bld) [#/Vol]237 10*3/eRXkrzli331-414Aru [facility] Comment on above:Performed By: #### HEPACUTE, HBCAB, HBSAB #### [facility] ,PoikilocytosisSFormerly [facility] Physician GroupComment on above: Performed By: #### HEPACUTE, HBCAB, HBSAB #### [facility] ,PolychromasiaSFormerly [facility] Physician GroupComment on above: Performed By: #### HEPACUTE, HBCAB, HBSAB #### [facility] ,RBC (Bld) [#/Vol]3.39 10*6/uLLow3.90-5.60The [facility] Physician [facility] CenterComment on above:Performed By: #### HEPACUTE, HBCAB, HBSAB #### [facility] ,Segmented neutrophils/100 WBC (Bld)72 %Vkxc59-94TcbHollywood Medical Center Physician [facility] Comment on above:Performed By: #### HEPACUTE, HBCAB, HBSAB #### [facility] ,WBC (Bld) [#/Vol]10.1 10*3/uLNormal4.1-10.5The [facility] Physician [facility] CenterComment on above:Performed By: #### HEPACUTE, HBCAB, HBSAB #### [facility] ,White Blood Count10.1 [CFU]/mLNormal4.1-10.5The [facility] Physician [facility] Comment on above:Performed By: #### HEPACUTE, HBCAB, HBSAB #### [facility] ,Glucose Poct Glucometerson 51-82-4583Qdydtox [Mass/Vol]187 mg/dLNoUNC Health Physician [facility] CenterComment on above:Result Comment: Random Glucose Reference Range is dependent on time and content of last meal. Glucose of more than 200 mg/dL in a nonstressed, ambulatory subject supports the diagnosis of Diabetes Mellitus. PERFORMED BY: [place] [address] PATHOLOGIST TRAVELING SECRETARY CARLOS BIRMINGHAM M.D.Performed By: #### GLULS #### Point of Care testing ,Glucose [Mass/Vol]269 mg/dLMartin Memorial [facility] Systems Physician [facility] CenterComment on above: Result Comment: Random Glucose Reference Range is dependent on time and content of last meal. Glucose of more than 200 mg/dL in a nonstressed, ambulatory subject supports the diagnosis of Diabetes Mellitus. PERFORMED BY: [place] [address] PATHOLOGIST TRAVELING SECRETARY CARLSO BIRMINGHAM M.D.Performed By: #### RENAL, MG #### [place] [address] YSYNscgoks3Aau2: Cleaned MeterNoUNC Health Physician GroupComment on above:Result Comment: PERFORMED BY: [address] [place] [address] PATHOLOGIST TRAVELING SECRETARY CARLOS BIRMINGHAM M.D.Performed By: #### GLULS #### Point of Care testing ,Glucose [Mass/Vol]109 mg/dLMartin Memorial Health Systems Physician GroupComment on above: Result Comment: Random Glucose Reference Range is dependent on time and content of last meal. Glucose of more than 200 mg/dL in a nonstressed, ambulatory subject supports the diagnosis of Diabetes Mellitus.Performed By: #### GLULS #### Point of Care testing ,Glucose [Mass/Vol]109 mg/dLMartin Memorial Health Systems Physician GroupComment on above: Result Comment: Random Glucose Reference Range is dependent on time and content of last meal. Glucose of more than 200 mg/dL in a nonstressed, ambulatory subject supports the diagnosis of Diabetes Mellitus. PERFORMED BY: [place] [address] PATHOLOGIST TRAVELING SECRETARY CARLOS BIRMINGHAM M.D.Performed By: #### GLULS #### Point of Care testing ,Magnesiumon 45-67-1778Tzmtnowtp [Mass/Vol]2.6 mg/dLNormal1.9-2.7The [facility] Physician GroupComment on above:Result Comment: PERFORMED BY: [address] [place] [address] PATHOLOGIST TRAVELING SECRETARY CARLOS BIRMINGHAM M.D.Performed By: #### HEPACUTE, HBCAB, HBSAB #### [facility] ,A1C with Estimated Average Gluon 39-56-6607Lfgiufp [Mass/Vol]255 mg/dLMartin Memorial [facility] Systems Physician GroupComment on above:Result Comment: PERFORMED BY: [address] [place] [address] PATHOLOGIST TRAVELING SECRETARY CARLOS BIRMINGHAM M.D.Performed By: #### HEPACUTE, HBCAB, HBSAB #### [facility] ,HbA1c (Bld) [Mass fraction]10.5 %High4.3-5.6The [facility] Comment on above:Result Comment: Increased risk for diabetes: 5.7 - 6.4 diabetes: >6.4 glycemic control for adults with diabetes: <7.0Performed By: #### HEPACUTE, HBCAB, HBSAB #### [facility] ,Comprehensive Metabolic Panelon 76-44-8254Zmtbnub [Mass/Vol]3.1 g/dLLow3.5-5.7 The [facility] Physician GroupComment on above:Performed By: #### HEPACUTE, HBCAB, HBSAB #### [facility] ,Albumin/Globulin [Mass ratio]0.9 {ratio}NormalThe [facility] Comment on above:Performed By: #### HEPACUTE, HBCAB, HBSAB #### [facility] ,ALP [Catalytic activity/Vol]69 U/DMwmxko96-151Wwm [facility] Comment on above:Performed By: #### HEPACUTE, HBCAB, HBSAB #### [facility] ,ALT [Catalytic activity/Vol]3 U/LLow7-52The [facility] Physician GroupComment on above:Performed By: #### HEPACUTE, HBCAB, HBSAB #### [facility] ,Anion gap [Moles/Vol]12.2 mmol/LNormal6.0-15.0The [facility] Comment on above:Performed By: #### HEPACUTE, HBCAB, HBSAB #### [facility] ,AST [Catalytic activity/Vol]21 U/PWuuycw97-37Qaq [facility] Comment on above:Performed By: #### HEPACUTE, HBCAB, HBSAB #### [facility] ,Bilirubin [Mass/Vol]0.6 mg/dLNormal0.3-1.0The [facility] Physician GroupComment on above:Performed By: #### HEPACUTE, HBCAB, HBSAB #### [facility] ,Calcium [Mass/Vol]8.9 mg/dLNormal8.6-10.3The [facility] Physician GroupComment on above:Performed By: #### HEPACUTE, HBCAB, HBSAB #### [facility] ,Chloride [Moles/Vol]95 mmol/CRdp58-105Swi [facility] Physician GroupComment on above:Performed By: #### HEPACUTE, HBCAB, HBSAB #### [facility] ,CO2 [Moles/Vol]30.5 mmol/RTegdxu02.0-31.0The [facility] Physician GroupComment on above:Performed By: #### HEPACUTE, HBCAB, HBSAB #### [facility] ,Creatinine [Mass/Vol]5.57 mg/dLHigh0.70-1.30[facility] Comment on above:Performed By: #### HEPACUTE, HBCAB, HBSAB #### [facility] ,Creatinine Clr Calc Wukgpbuo84.11NoUNC Health Physician GroupComment on above:Performed By: #### HEPACUTE, HBCAB, HBSAB #### [facility] ,GFR/1.73 sq M.predicted MDRD (S/P/Bld) [Vol rate/Area]10.703 mL/min/{1.73_m2} NormalThe [facility] Physician GroupComment on above:Performed By: #### HEPACUTE, HBCAB, HBSAB #### [facility] ,Globulin (S) [Mass/Vol]3.5 g/dLMartin Memorial [facility] Systems Physician [facility] CenterComment on above:Performed By: #### HEPACUTE, HBCAB, HBSAB #### [facility] ,Glucose [Mass/Vol]175 mg/wMVnuv55-956Bco [facility] Physician GroupComment on above:Result Comment: Random Glucose Reference Range is dependent on time and content of last meal. Glucose of more than 200 mg/dL in a nonstressed, ambulatory subject supports the diagnosis of Diabetes Mellitus. ADA recommended reference rangePerformed By: #### HEPACUTE, HBCAB, HBSAB #### [facility] ,Potassium [Moles/Vol]3.7 mmol/LNormal3.5-5.1The [facility] Comment on above:Performed By: #### HEPACUTE, HBCAB, HBSAB #### [facility] ,Protein [Mass/Vol]6.6 g/dLNormal6.4-8.9The [facility] Physician GroupComment on above:Performed By: #### HEPACUTE, HBCAB, HBSAB #### [facility] ,Sodium [Moles/Vol]134 mmol/BLdo920-703Zlv [facility] Physician GroupComment on above:Performed By: #### HEPACUTE, HBCAB, HBSAB #### [facility] ,Urea nitrogen [Mass/Vol]46 mg/dLHigh7-25The [facility] Physician GroupComment on above:Performed By: #### HEPACUTE, HBCAB, HBSAB #### [facility] ,Diff and CBCon 97-40-6086Guqiahrwwjgb Ql (Bld)SlightNormalThe [facility] Physician GroupComment on above:Performed By: #### HEPACUTE, HBCAB, HBSAB #### [facility] ,Eosinophils/100 WBC (Bld)7 %High1-3The [facility] Physician GroupComment on above:Performed By: #### HEPACUTE, HBCAB, HBSAB #### [facility] ,Erythrocyte distribution width (RBC) [Ratio]14.7 %Hshhze36.0-14.8The [facility] Physician GroupComment on above:Performed By: #### HEPACUTE, HBCAB, HBSAB #### [facility] ,Hematocrit (Bld) [Volume fraction]28.5 %Low38.8-50.0The [facility] Physician GroupComment on above:Performed By: #### HEPACUTE, HBCAB, HBSAB #### [facility] ,Hemoglobin (Bld) [Mass/Vol]9.4 g/dLLow13.0-17.0The [facility] Physician [facility] Comment on above:Performed By: #### HEPACUTE, HBCAB, HBSAB #### [facility] ,HypochromasiaSlightMartin Memorial Health Systems Physician GroupComment on above: Performed By: #### HEPACUTE, HBCAB, HBSAB #### [facility] ,Lymphocytes/100 WBC (Bld)15 %Qww87-41Lnm [facility] Physician GroupComment on above:Performed By: #### HEPACUTE, HBCAB, HBSAB #### [facility] ,MCH (RBC) [Entitic mass]29.1 wwDvrchz04.5-35.2The [facility] Physician [facility] Comment on above:Performed By: #### HEPACUTE, HBCAB, HBSAB #### [facility] ,MCV (RBC) [Entitic vol]88.5 aULabkoe51.5-101The [facility] Physician [facility] Comment on above:Performed By: #### HEPACUTE, HBCAB, HBSAB #### [facility] ,Mean Corpuscular HGB Conc32.8 g/cPKlbbqc58.5-35.6[facility] Comment on above:Performed By: #### HEPACUTE, HBCAB, HBSAB #### [facility] ,MicrocytosisSFormerly [facility] Physician GroupComment on above:Performed By: #### HEPACUTE, HBCAB, HBSAB #### [facility] ,Monocytes/100 WBC (Bld)13 %High2-11The [facility] Physician GroupComment on above:Performed By: #### HEPACUTE, HBCAB, HBSAB #### [facility] ,Myelocytes2 %High0-0The [facility] Physician GroupComment on above:Performed By: #### HEPACUTE, HBCAB, HBSAB #### [facility] ,Platelet EstimateNormalNormalMartin Memorial Health Systems Physician GroupComment on above:Performed By: #### HEPACUTE, HBCAB, HBSAB #### [facility] ,Platelet mean volume (Bld) [Entitic vol]7.1 fLNormal6.6-10.1The [facility] Physician GroupComment on above:Performed By: #### HEPACUTE, HBCAB, HBSAB #### [facility] ,Platelet MorphologyNormalNormalMartin Memorial Health Systems Physician GroupComment on above:Result Comment: PERFORMED BY: [facility] Raheem MAGAÑ[place] [address] PATHOLOGIST TRAVELING SECRETARY CARLOS BIRMINGHAM M.D.Performed By: #### HEPACUTE, HBCAB, HBSAB #### [facility] ,Platelets (Bld) [#/Vol]240 10*3/vNPbwaih039-857Fct [facility] Comment on above:Performed By: #### HEPACUTE, HBCAB, HBSAB #### [facility] ,PolychromasiaSlightMartin Memorial Health Systems Physician GroupComment on above: Performed By: #### HEPACUTE, HBCAB, HBSAB #### [facility] ,RBC (Bld) [#/Vol]3.22 10*6/uLLow3.90-5.60The [facility] Physician GroupComment on above:Performed By: #### HEPACUTE, HBCAB, HBSAB #### [facility] ,Segmented neutrophils/100 WBC (Bld)63 %Kajtoz84-12Psn [facility] Comment on above:Performed By: #### HEPACUTE, HBCAB, HBSAB #### [facility] ,WBC (Bld) [#/Vol]9.9 10*3/uLNormal4.1-10.5The [facility] Physician GroupComment on above:Performed By: #### HEPACUTE, HBCAB, HBSAB #### [facility] ,White Blood Count9.9 [CFU]/mLNormal4.1-10.5The [facility] Physician GroupComment on above:Performed By: #### HEPACUTE, HBCAB, HBSAB #### [facility] ,Glucose Poct Glucometerson 02-10-1262Ipywfux [Mass/Vol]218 mg/dLNoUNC Health Physician GroupComment on above:Result Comment: Random Glucose Reference Range is dependent on time and content of last meal. Glucose of more than 200 mg/dL in a nonstressed, ambulatory subject supports the diagnosis of Diabetes Mellitus. PERFORMED BY: [place] [address] PATHOLOGIST TRAVELING SECRETARY CARLOS BIRMINGHAM M.D.Performed By: #### HEPACUTE, HBCAB, HBSAB #### [facility] ,Glucose [Mass/Vol]116 mg/dLNoUNC Health Physician GroupComment on above: Result Comment: Random Glucose Reference Range is dependent on time and content of last meal. Glucose of more than 200 mg/dL in a nonstressed, ambulatory subject supports the diagnosis of Diabetes Mellitus. PERFORMED BY: [place] [address] PATHOLOGIST TRAVELING SECRETARY CARLOS BIRMINGHAM M.D.Performed By: #### RENAL, MG #### [address]Glucose [Mass/Vol]172 mg/dLNoUNC Health Physician GroupComment on above:Result Comment: Random Glucose Reference Range is dependent on time and content of last meal. Glucose of more than 200 mg/dL in a nonstressed, ambulatory subject supports the diagnosis of Diabetes Mellitus. PERFORMED BY: [place] [address] PATHOLOGIST TRAVELING SECRETARY CARLOS BIRMINGHAM M.D.Performed By: #### HEPACUTE, HBCAB, HBSAB #### [facility] ,Glucose [Mass/Vol]142 mg/dLNoUNC Health Physician GroupComment on above: Result Comment: Random Glucose Reference Range is dependent on time and content of last meal. Glucose of more than 200 mg/dL in a nonstressed, ambulatory subject supports the diagnosis of Diabetes Mellitus. PERFORMED BY: [address] [address] PATHOLOGIST TRAVELING SECRETARY CARLOS BIRMINGHAM M.D.Performed By: #### GLULS #### Point of Care testing ,Magnesiumon 74-48-0597Katvrxxte [Mass/Vol]2.3 mg/dLNormal1.9-2.7The [facility] Physician GroupComment on above:Result Comment: PERFORMED BY: [facility] [address] [place] [address] PATHOLOGIST TRAVELING SECRETARY CARLOS BIRMINGHAM M.D.Performed By: #### HEPACUTE, HBCAB, HBSAB #### [facility] ,Complete Blood Count Auto Diffon 28-67-5650Gppmhzxjw (Bld) [#/Vol]0.1 10*3/uL Normal0.0-0.2The [facility] Physician GroupComment on above:Result Comment: PERFORMED BY: [facility] [address] [place] [address] PATHOLOGIST TRAVELING SECRETARY CARLOS BIRMINGHAM M.D.Performed By: #### GLULS #### Point of Care testing ,Basophils/100 WBC (Bld)0.9 %Normal.The [facility] Physician GroupComment on above:Performed By: #### GLULS #### Point of Care testing ,Eosinophils (Bld) [#/Vol]0.5 10*3/uLHigh0.0-0.45The [facility] Comment on above:Performed By: #### GLULS #### Point of Care testing ,Eosinophils/100 WBC (Bld)6.1 %Normal.The [facility] Physician GroupComment on above:Performed By: #### GLULS #### Point of Care testing ,Erythrocyte distribution width (RBC) [Ratio]14.7 %Vycbtd08.0-14.8The [facility] Physician GroupComment on above:Performed By: #### GLULS #### Point of Care testing ,Hematocrit (Bld) [Volume fraction]25.9 %Low38.8-50.0The [facility] Physician GroupComment on above:Performed By: #### GLULS #### Point of Care testing ,Hemoglobin (Bld) [Mass/Vol]8.7 g/dLLow13.0-17.0The [facility] Comment on above:Performed By: #### GLULS #### Point of Care testing ,Lymphocytes (Bld) [#/Vol]1.2 10*3/uLNormal1.00-4.8The [facility] Comment on above:Performed By: #### GLULS #### Point of Care testing ,Lymphocytes/100 WBC (Bld)13.2 %Normal.The [facility] Physician GroupComment on above:Performed By: #### GLULS #### Point of Care testing ,MCH (RBC) [Entitic mass]29.5 hiErjoxu45.5-35.2The [facility] Comment on above:Performed By: #### GLULS #### Point of Care testing ,MCV (RBC) [Entitic vol]87.7 mCKtlkmc26.5-101The [facility] Comment on above:Performed By: #### GLULS #### Point of Care testing ,Mean Corpuscular HGB Conc33.6 g/gZGkidkb84.5-35.6The [facility] Comment on above:Performed By: #### GLULS #### Point of Care testing ,Monocytes (Bld) [#/Vol]1.0 10*3/uLHigh0.0-0.8The [facility] Comment on above:Performed By: #### GLULS #### Point of Care testing ,Monocytes/100 WBC (Bld)11.6 %Normal.The [facility] Physician GroupComment on above:Performed By: #### GLULS #### Point of Care testing ,Neutrophils (Bld) [#/Vol]6.0 10*3/uLNormal1.8-7.7The [facility] Comment on above:Performed By: #### GLULS #### Point of Care testing ,Neutrophils/100 WBC (Bld)68.2 %Normal.The [facility] Physician GroupComment on above:Performed By: #### GLULS #### Point of Care testing ,NRBC%0.0 /100{WBC}Normal0-0.5The [facility] Physician GroupComment on above: Performed By: #### GLULS #### Point of Care testing ,Platelet mean volume (Bld) [Entitic vol]8.2 fLNormal6.6-10.1[facility] Physician GroupComment on above:Performed By: #### GLULS #### Point of Care testing ,Platelets (Bld) [#/Vol]150 10*3/lSDkdazoum243-569Kgg [facility] Comment on above:Performed By: #### GLULS #### Point of Care testing ,RBC (Bld) [#/Vol]2.96 10*6/uLLow3.90-5.60The [facility] Physician GroupComment on above:Performed By: #### GLULS #### Point of Care testing ,WBC (Bld) [#/Vol]8.7 10*3/uLNormal4.1-10.5The [facility] Physician GroupComment on above:Performed By: #### GLULS #### Point of Care testing ,White Blood Count8.7 [CFU]/mLNormal4.1-10.5The [facility] Physician GroupComment on above:Performed By: #### GLULS #### Point of Care testing ,Comprehensive Metabolic Panelon 12-76-4001Gkonkoe [Mass/Vol]2.8 g/dLLow3.5-5.7 The [facility] Physician GroupComment on above:Performed By: #### GLULS #### Point of Care testing ,Albumin/Globulin [Mass ratio]0.9 {ratio}NormalThe [facility] Comment on above:Performed By: #### GLULS #### Point of Care testing ,ALP [Catalytic activity/Vol]62 U/QJnrbhr70-074Yuk [facility] Physician [facility] Comment on above:Performed By: #### GLULS #### Point of Care testing ,ALT [Catalytic activity/Vol]U/LLow7-52The [facility] Physician GroupComment on above:Performed By: #### GLULS #### Point of Care testing ,Anion gap [Moles/Vol]17.2 mmol/LHigh6.0-15.0The [facility] Physician [facility] Comment on above:Performed By: #### GLULS #### Point of Care testing ,AST [Catalytic activity/Vol]20 U/SGswxah12-03Eyw [facility] Comment on above:Performed By: #### GLULS #### Point of Care testing ,Bilirubin [Mass/Vol]0.5 mg/dLNormal0.3-1.0The [facility] Physician GroupComment on above:Performed By: #### GLULS #### Point of Care testing ,Calcium [Mass/Vol]8.4 mg/dLLow8.6-10.3The [facility] Physician GroupComment on above:Performed By: #### GLULS #### Point of Care testing ,Chloride [Moles/Vol]96 mmol/EKmr68-373Ggn [facility] Physician GroupComment on above:Performed By: #### GLULS #### Point of Care testing ,CO2 [Moles/Vol]23.9 mmol/UCqteus45.0-31.0The [facility] Physician GroupComment on above:Performed By: #### GLULS #### Point of Care testing ,Creatinine [Mass/Vol]7.26 mg/dLHigh0.70-1.30[facility] Comment on above:Performed By: #### GLULS #### Point of Care testing ,Creatinine Clr Calc Npokttrl29.82NoUNC Health Physician GroupComment on above:Performed By: #### GLULS #### Point of Care testing ,GFR/1.73 sq M.predicted MDRD (S/P/Bld) [Vol rate/Area]7.787 mL/min/{1.73_m2} NormalHollywood Medical Center Physician GroupComment on above:Performed By: #### GLULS #### Point of Care testing ,Globulin (S) [Mass/Vol]3.2 g/dLMartin Memorial Health Systems Physician GroupComment on above:Performed By: #### GLULS #### Point of Care testing ,Glucose [Mass/Vol]220 mg/wBFgts90-179Nww [facility] Physician GroupComment on above:Result Comment: Random Glucose Reference Range is dependent on time and content of last meal. Glucose of more than 200 mg/dL in a nonstressed, ambulatory subject supports the diagnosis of Diabetes Mellitus. ADA recommended reference rangePerformed By: #### GLULS #### Point of Care testing ,Potassium [Moles/Vol]4.1 mmol/LNormal3.5-5.1The [facility] Comment on above:Result Comment: Hemolysis is present at a level that could interfere with the result. Contact lab if redraw is requiredPerformed By: #### GLULS #### Point of Care testing ,Protein [Mass/Vol]6.0 g/dLLow6.4-8.9The [facility]:Performed By: #### GLULS #### Point of Care testing ,Sodium [Moles/Vol]133 mmol/ZSaw133-659Nrt [facility] Physician GroupComment on above:Performed By: #### GLULS #### Point of Care testing ,Urea nitrogen [Mass/Vol]73 mg/dLHigh7-25The [facility] Physician GroupComment on above:Performed By: #### GLULS #### Point of Care testing ,Glucose Poct Glucometerson 20-34-7956Mxayyzh [Mass/Vol]224 mg/dLNoGuernsey Memorial HospitalComment on above:Result Comment: Random Glucose Reference Range is dependent on time and content of last meal. Glucose of more than 200 mg/dL in a nonstressed, ambulatory subject supports the diagnosis of Diabetes Mellitus. PERFORMED BY: [address] [place] [address] PATHOLOGIST TRAVELING SECRETARY CARLOS BIRMINGHAM M.D.Performed By: #### HEPACUTE, HBCAB, HBSAB #### [facility] ,Glucose [Mass/Vol]204 mg/dLMayo Clinic HospitalComment on above: Result Comment: Random Glucose Reference Range is dependent on time and content of last meal. Glucose of more than 200 mg/dL in a nonstressed, ambulatory subject supports the diagnosis of Diabetes Mellitus. PERFORMED BY: [address] [place] [address] PATHOLOGIST TRAVELING SECRETARY CARLOS BIRMINGHAM M.D.Performed By: #### GLULS #### Point of Care testing ,Glucose [Mass/Vol]280 mg/dLMartin Memorial Health Systems Physician GroupComment on above: Result Comment: Random Glucose Reference Range is dependent on time and content of last meal. Glucose of more than 200 mg/dL in a nonstressed, ambulatory subject supports the diagnosis of Diabetes Mellitus. PERFORMED BY: [place] [phone] PATHOLOGIST TRAVELING SECRETARY CARLOS BIRMINGHAM M.D.Performed By: #### RENAL #### [place] [address] USAMagnesiumon 64-70-4154Dumzxwyns [Mass/Vol]2.7 mg/dLNormal 1.9-2.7The [facility] Physician GroupComment on above:Result Comment: PERFORMED BY: [place] [phone] PATHOLOGIST TRAVELING SECRETARY CARLOS BIRMINGHAM M.D.Performed By: #### GLULS #### Point of Care testing ,Glucose Poct Glucometerson 48-82-6439Zohmlgj3Ynw8: Cleaned [facility] Physician [facility] CenterComment on above:Result Comment: PERFORMED BY: [place] [phone] PATHOLOGIST TRAVELING SECRETARY CARLOS BIRMINGHAM M.D.Performed By: #### HEPACUTE, HBCAB, HBSAB #### [facility] ,Glucose [Mass/Vol]250 mg/dLMartin Memorial Health Systems Physician GroupComment on above: Result Comment: Random Glucose Reference Range is dependent on time and content of last meal. Glucose of more than 200 mg/dL in a nonstressed, ambulatory subject supports the diagnosis of Diabetes Mellitus.Performed By: #### HEPACUTE, HBCAB, HBSAB #### [facility] ,Glucose [Mass/Vol]261 mg/dLMartin Memorial Health Systems Physician GroupComment on above: Result Comment: Random Glucose Reference Range is dependent on time and content of last meal. Glucose of more than 200 mg/dL in a nonstressed, ambulatory subject supports the diagnosis of Diabetes Mellitus. PERFORMED BY: [place] [id number] PATHOLOGIST TRAVELING SECRETARY CARLOS BIRMINGHAM M.D.Performed By: #### HEPACUTE, HBCAB, HBSAB #### [facility] ,Glucose [Mass/Vol]185 mg/dLNoUNC Health Physician GroupComment on above: Result Comment: Random Glucose Reference Range is dependent on time and content of last meal. Glucose of more than 200 mg/dL in a nonstressed, ambulatory subject supports the diagnosis of Diabetes Mellitus. PERFORMED BY: [place] [id number] PATHOLOGIST TRAVELING SECRETARY CARLOS BIRMINGHAM M.D.Performed By: #### HEPACUTE, HBCAB, HBSAB #### [facility] ,Glucose [Mass/Vol]114 mg/dLMartin Memorial Health Systems Physician [facility] CenterComment [facility]: Result Comment: Random Glucose Reference Range is dependent on time and content of last meal. Glucose of more than 200 mg/dL in a nonstressed, ambulatory subject supports the diagnosis of Diabetes Mellitus. PERFORMED BY: [place] [id number] PATHOLOGIST TRAVELING SECRETARY CARLOS BIRMINGHAM M.D.Performed By: #### HEPACUTE, HBCAB, HBSAB #### [facility] ,Hemogram CBC Without Diffon 77-91-9724Haqslekzesb distribution width (RBC) [Ratio]14.7 %Mkjdsg88.0-14.8The [facility] Alle-KiskiComment on above: Performed By: #### GLULS #### Point of Care testing ,Hematocrit (Bld) [Volume fraction]29.1 %Low38.8-50.0The [facility] - Alle-KiskiComment on above:Performed By: #### GLULS #### Point of Care testing ,Hemoglobin (Bld) [Mass/Vol]9.7 g/dLLow13.0-17.0[facility] Comment on above:Performed By: #### GLULS #### Point of Care testing ,MCH (RBC) [Entitic mass]28.9 ftVvsobh98.5-35.2The [facility] Comment on above:Performed By: #### GLULS #### Point of Care testing ,MCV (RBC) [Entitic vol]87.0 qFRvuqev49.5-101The [facility] Comment on above:Performed By: #### GLULS #### Point of Care testing ,Mean Corpuscular HGB Conc33.3 g/gIJdibnl56.5-35.6The [facility] Comment on above:Performed By: #### GLULS #### Point of Care testing ,Platelet mean volume (Bld) [Entitic vol]7.1 fLNormal6.6-10.1The [facility] CenterComment [facility]:Result Comment: PERFORMED BY: [place] [address] [place] [address] PATHOLOGIST TRAVELING SECRETARY CARLOS BIRMINGHAM M.D.Performed By: #### GLULS #### Point of Care testing ,Platelets (Bld) [#/Vol]202 10*3/cVCurdud826-456Qms [facility] Physician [facility] Comment on above:Performed By: #### GLULS #### Point of Care testing ,RBC (Bld) [#/Vol]3.34 10*6/uLLow3.90-5.60The [facility] Physician [facility] CenterComment on above:Performed By: #### GLULS #### Point of Care testing ,White Blood Count10.0 [CFU]/mLNormal4.1-10.5The [facility] Comment on above:Performed By: #### GLULS #### Point of Care testing ,Renal Function Panelon 41-60-5904Rtwqkfv [Mass/Vol]3.1 g/dLLow3.5-5.7The [facility] Physician GroupComment on above:Performed By: #### GLULS #### Point of Care testing ,Anion gap [Moles/Vol]16.0 mmol/LHigh6.0-15.0The [facility] Physician [facility] Comment on above:Performed By: #### GLULS #### Point of Care testing ,Calcium [Mass/Vol]8.8 mg/dLNormal8.6-10.3The [facility] Physician GroupComment on above:Performed By: #### GLULS #### Point of Care testing ,Chloride [Moles/Vol]95 mmol/SPik77-735Aui [facility] Physician GroupComment on above:Performed By: #### GLULS #### Point of Care testing ,CO2 [Moles/Vol]28.1 mmol/QCynmix44.0-31.0The [facility] Physician GroupComment on above:Performed By: #### GLULS #### Point of Care testing ,Creatinine [Mass/Vol]6.35 mg/dLHigh0.70-1.30The [facility] Physician [facility] Comment on above:Performed By: #### GLULS #### Point of Care testing ,Creatinine Clr Calc Tsebasdo65.04NormalThe [facility] Physician GroupComment on above:Result Comment: PERFORMED BY: [address] [place] [address] PATHOLOGIST TRAVELING SECRETARY CARLOS BIRMINGHAM M.D.Performed By: #### GLULS #### Point of Care testing ,GFR/1.73 sq M.predicted MDRD (S/P/Bld) [Vol rate/Area]9.145 mL/min/{1.73_m2} NormalThe [facility] Physician GroupComment on above:Performed By: #### GLULS #### Point of Care testing ,Glucose [Mass/Vol]126 mg/iCKmmn10-411Ibt [facility] Physician GroupComment on above:Result Comment: Random Glucose Reference Range is dependent on time and content of last meal. Glucose of more than 200 mg/dL in a nonstressed, ambulatory subject supports the diagnosis of Diabetes Mellitus. ADA recommended reference rangePerformed By: #### GLULS #### Point of Care testing ,Phosphate [Mass/Vol]5.4 mg/dLHigh2.5-4.5The [facility] Physician GroupComment on above:Performed By: #### GLULS #### Point of Care testing ,Potassium [Moles/Vol]4.1 mmol/LNormal3.5-5.1The [facility] Comment on above:Performed By: #### GLULS #### Point of Care testing ,Sodium [Moles/Vol]135 mmol/SPcb404-389Brk [facility] Physician GroupComment on above:Performed By: #### GLULS #### Point of Care testing ,Urea nitrogen [Mass/Vol]65 mg/dLHigh7-25The [facility] Physician GroupComment on above:Performed By: #### GLULS #### Point of Care testing ,Complete Blood Count Auto Diffon 22-90-2093Efvkngsld (Bld) [#/Vol]0.0 10*3/uL Normal0.0-0.2The [facility] Physician GroupComment on above:Result Comment: PERFORMED BY: [place] [address] PATHOLOGIST TRAVELING SECRETARY CARLOS BIRMINGHAM M.D.Performed By: #### RENAL #### [place] [address] USABasophils/100 WBC (Bld)0.4 %Normal.The [facility] Physician GroupComment on above:Performed By: #### RENAL #### [place] [address] USAEosinophils (Bld) [#/Vol]0.3 10*3/uLNormal0.0-0.45The [facility] Physician GroupComment on above:Performed By: #### RENAL #### [place] [address] USAEosinophils/100 WBC (Bld)2.8 %Normal.The [facility] Physician GroupComment on above:Performed By: #### RENAL #### [place] [address] USAErythrocyte distribution width (RBC) [Ratio]15.3 %High 12.0-14.8The [facility] Physician GroupComment on above:Performed By: #### RENAL #### [place] [address] USAHematocrit (Bld) [Volume fraction]30.7 %Low38.8-50.0The [facility] Physician GroupComment on above:Performed By: #### RENAL #### [place] [address] USAHemoglobin (Bld) [Mass/Vol]10.1 g/dLLow13.0-17.0The [facility] Physician GroupComment on above:Performed By: #### RENAL #### [place] [address] USALymphocytes (Bld) [#/Vol]1.3 10*3/uLNormal1.00-4.8The [facility] Physician GroupComment on above:Performed By: #### RENAL #### [place] [address] USALymphocytes/100 WBC (Bld)12.8 %Normal.The [facility] Physician GroupComment on above:Performed By: #### RENAL #### [place] [address] USAMCH (RBC) [Entitic mass]28.9 lfRixupd47.5-35.2The [facility] Physician GroupComment on above:Performed By: #### RENAL #### [place] [address] USAMCV (RBC) [Entitic vol]87.7 iMJjoafw92.5-101The [facility] Physician GroupComment on above:Performed By: #### RENAL #### [place] [address] USAMean Corpuscular HGB Conc33.0 g/iXIorxnv46.5-35.6The [facility] Physician GroupComment on above:Performed By: #### RENAL #### [place] [address] USAMonocytes (Bld) [#/Vol]0.9 10*3/uLHigh0.0-0.8The [facility] Physician GroupComment on above:Performed By: #### RENAL #### [address] [address] USAMonocytes/100 WBC (Bld)9.1 %Normal.The [facility] Physician GroupComment on above:Performed By: #### RENAL #### [facility] [address] [place] [address] USANeutrophils (Bld) [#/Vol]7.4 10*3/uLNormal1.8-7.7The [facility] Physician GroupComment on above:Performed By: #### RENAL #### [facility] [address] [place] [address] USANeutrophils/100 WBC (Bld)74.9 %Normal.The [facility] Physician GroupComment on above:Performed By: #### RENAL #### [facility] [address] [place] [address] USANRBC%0.1 /100{WBC}Normal0-0.5The [facility] Comment on above:Performed By: #### RENAL #### [facility] [address] [place] [address] USAPlatelet mean volume (Bld) [Entitic vol]7.4 fLNormal 6.6-10.1The [facility] Physician GroupComment on above:Performed By: #### RENAL #### [facility] [address] [place] [address] USAPlatelets (Bld) [#/Vol]176 10*3/rDSvykbx577-208Cmy [facility] Physician GroupComment on above:Performed By: #### RENAL #### [facility] [address] [place] [address] USARBC (Bld) [#/Vol]3.50 10*6/uLLow3.90-5.60The [facility] Physician GroupComment on above:Performed By: #### RENAL #### [facility] [address] [place] [address] USAWBC (Bld) [#/Vol]10.0 10*3/uLNormal4.1-10.5The [facility] Physician GroupComment on above:Performed By: #### RENAL #### [facility] [address] [place] [address] USAWhite Blood Count10.0 [CFU]/mLNormal4.1-10.5The [facility] Physician GroupComment on above:Performed By: #### RENAL #### [facility] [address] [place] [address] USAGlucose Poct Glucometerson 31-93-0329Rbmxyew [Mass/Vol]175 mg/dLNoUNC Health Physician GroupComment on above:Result Comment: Random Glucose Reference Range is dependent on time and content of last meal. Glucose of more than 200 mg/dL in a nonstressed, ambulatory subject supports the diagnosis of Diabetes Mellitus. PERFORMED BY: [place] [address] PATHOLOGIST TRAVELING SECRETARY CARLOS BIRMINGHAM M.D.Performed By: #### GLULS #### Point of Care testing ,Glucose [Mass/Vol]181 mg/dLNoUNC Health Physician GroupComment on above: Result Comment: Random Glucose Reference Range is dependent on time and content of last meal. Glucose of more than 200 mg/dL in a nonstressed, ambulatory subject supports the diagnosis of Diabetes Mellitus. PERFORMED BY: [place] [address] PATHOLOGIST TRAVELING SECRETARY CARLOS BIRMINGHAM M.D.Performed By: #### HEPACUTE, HBCAB, HBSAB #### [facility] ,Glucose [Mass/Vol]210 mg/dLNoUNC Health Physician [facility] CenterComment on above: Result Comment: Random Glucose Reference Range is dependent on time and content of last meal. Glucose of more than 200 mg/dL in a nonstressed, ambulatory subject supports the diagnosis of Diabetes Mellitus. PERFORMED BY: [place] [address] PATHOLOGIST TRAVELING SECRETARY CARLOS BIRMINGHAM M.D.Performed By: #### RENAL #### [facility] [address] [place] [address] USAGlucose [Mass/Vol]194 mg/dLNoUNC Health Physician GroupComment on above:Result Comment: Random Glucose Reference Range is dependent on time and content of last meal. Glucose of more than 200 mg/dL in a nonstressed, ambulatory subject supports the diagnosis of Diabetes Mellitus. PERFORMED BY: [place] [address] PATHOLOGIST TRAVELING SECRETARY CARLOS BIRMINGHAM M.D.Performed By: #### RENAL, MG #### [place] [address] USARenal Function Panelon 75-71-7521Ywhsoca [Mass/Vol]3.1 g/dLLow3.5-5.7The [facility] Physician GroupComment on above:Performed By: #### HEPACUTE, HBCAB, HBSAB #### [facility] ,Anion gap [Moles/Vol]14.3 mmol/LNormal6.0-15.0[facility] Physician [facility] Comment on above:Performed By: #### HEPACUTE, HBCAB, HBSAB #### [facility] ,Calcium [Mass/Vol]8.4 mg/dLLow8.6-10.3The [facility] Physician GroupComment on above:Performed By: #### HEPACUTE, HBCAB, HBSAB #### [facility] ,Chloride [Moles/Vol]95 mmol/PWir98-814Zpd [facility] Physician GroupComment on above:Performed By: #### HEPACUTE, HBCAB, HBSAB #### [facility] ,CO2 [Moles/Vol]28.8 mmol/CZlqkmi37.0-31.0The [facility] Physician GroupComment on above:Performed By: #### HEPACUTE, HBCAB, HBSAB #### [facility] ,Creatinine [Mass/Vol]5.07 mg/dLHigh0.70-1.30[facility] Physician [facility] Comment on above:Performed By: #### HEPACUTE, HBCAB, HBSAB #### [facility] ,Creatinine Clr Calc Qlanqewg21.49NormalThe [facility] Physician GroupComment on above:Result Comment: PERFORMED BY: [place] [address] PATHOLOGIST TRAVELING SECRETARY CARLOS BIRMINGHAM M.D.Performed By: #### HEPACUTE, HBCAB, HBSAB #### [facility] ,GFR/1.73 sq M.predicted MDRD (S/P/Bld) [Vol rate/Area]11.982 mL/min/{1.73_m2} NormalThe [facility] Hospital Physician GroupComment on above:Performed By: #### HEPACUTE, HBCAB, HBSAB #### [facility] ,Glucose [Mass/Vol]199 mg/xILqwn88-092Xlh [facility] Physician GroupComment on above:Result Comment: Random Glucose Reference Range is dependent on time and content of last meal. Glucose of more than 200 mg/dL in a nonstressed, ambulatory subject supports the diagnosis of Diabetes Mellitus. ADA recommended reference rangePerformed By: #### HEPACUTE, HBCAB, HBSAB #### [facility] ,Phosphate [Mass/Vol]5.7 mg/dLHigh2.5-4.5The [facility] Physician GroupComment on above:Performed By: #### HEPACUTE, HBCAB, HBSAB #### [facility] ,Potassium [Moles/Vol]4.1 mmol/LNormal3.5-5.1The [facility] Comment on above:Performed By: #### HEPACUTE, HBCAB, HBSAB #### [facility] ,Sodium [Moles/Vol]134 mmol/RYso648-955Fvy [facility] Physician GroupComment on above:Performed By: #### HEPACUTE, HBCAB, HBSAB #### [facility] ,Urea nitrogen [Mass/Vol]52 mg/dLHigh7-25The [facility] Physician GroupComment on above:Performed By: #### HEPACUTE, HBCAB, HBSAB #### [facility] ,XR hip RT min 2V(w/wo pelvis)*on 34-74-6399JB hip RT min 2V(w/wo pelvis)* [facility] Main [address] [place] [address] XRay Report Signed Patient: Rashard Lyman MR#: [id number] : 1960 Acct:[id number] Age/Sex: 64 / M ADM Date: 12/23/24 Loc: 4N Room: [address] [place] [address] Type: ADM IN Attending Dr: Dinesh Cervantes MD Copies to: DO Dinesh Krishna MD Ordering Provider: Wilfirdo Montez DO Date of Service: 12/24/24 XR/XR [...] Mckinney M.D. 12/26/2024 5:01 PM Dictation Location: [place] [address] Transcribed By: [facility] 12/26/24 170 Dictated By: Hector Mckinney II, MD 12/26/24 170 Signed By: 12/26/24 170[facility] Physician GroupXR wrist RT 2Von 86-86-1502YE wrist RT [facility] Main [address] [address] XRay Report Signed Patient: Rashard Lyman MR#: [id number] : 1960 Acct:[id number] Age/Sex: 64 / M ADM Date: 12/23/24 Loc: 4N Room: 2U9214-4 Type: ADM IN Attending Dr: Dinesh Cervantes [...] Mckinney M.D. 12/26/2024 5:00 PM Dictation Location: [place] [address] Transcribed By: [facility] 12/26/24 1700 Dictated By: Hector Mckinney II, MD 12/26/24 1659 Signed By: 12/26/24 170NoUNC Health Physician GroupComplete Blood Count Auto Diffon [id number] (Bld) [#/Vol]0.1 10*3/uLNormal0.0-0.2The [facility] Physician GroupComment on above:Result Comment: PERFORMED BY: [place] [address] PATHOLOGIST TRAVELING SECRETARY CARLOS BIRMINGHAM M.D.Performed By: #### RENAL, MG #### [place] [address] USABasophils/100 WBC (Bld)0.4 %Normal.The [facility] Physician GroupComment on above:Performed By: #### RENAL, MG #### [place] [address] USAEosinophils (Bld) [#/Vol]0.0 10*3/uLNormal0.0-0.45The [facility] Physician GroupComment on above:Performed By: #### RENAL, MG #### [place] [address] USAEosinophils/100 WBC (Bld)0.0 %Normal.The [facility] Physician GroupComment on above:Performed By: #### RENAL, MG #### [place] [address] USAErythrocyte distribution width (RBC) [Ratio]14.8 %Normal 12.0-14.8The [facility] Physician GroupComment on above:Performed By: #### RENAL, MG #### [place] [address] USAHematocrit (Bld) [Volume fraction]31.3 %Low38.8-50.0The [facility] Physician GroupComment on above:Performed By: #### RENAL, MG #### [place] [address] USAHemoglobin (Bld) [Mass/Vol]10.3 g/dLLow13.0-17.0The [facility] Physician GroupComment on above:Performed By: #### RENAL, MG #### [place] [address] USALymphocytes (Bld) [#/Vol]0.9 10*3/uLLow1.00-4.8The [facility] Physician GroupComment on above:Performed By: #### RENAL, MG #### [place] [address] USALymphocytes/100 WBC (Bld)6.1 %Normal.The [facility] Physician GroupComment on above:Performed By: #### RENAL, MG #### [place] [address] USAMCH (RBC) [Entitic mass]28.9 qhSoxmlg98.5-35.2The [facility] Physician GroupComment on above:Performed By: #### RENAL, MG #### [place] [address] USAMCV (RBC) [Entitic vol]87.5 cUQlrlol94.5-101The [facility] Physician GroupComment on above:Performed By: #### RENAL, MG #### [place] [address] USAMean Corpuscular HGB Conc33.0 g/nCCjtfkm25.5-35.6The [facility] Physician GroupComment on above:Performed By: #### RENAL, MG #### [facility] [address] [place] [address] USAMonocytes (Bld) [#/Vol]1.3 10*3/uLHigh0.0-0.8The [facility] Physician GroupComment on above:Performed By: #### RENAL, MG #### [facility] [address] [place] [address] USAMonocytes/100 WBC (Bld)9.0 %Normal.The [facility] Physician GroupComment on above:Performed By: #### RENAL, MG #### [facility] [address] [place] [address] USANeutrophils (Bld) [#/Vol]12.6 10*3/uLHigh1.8-7.7The [facility] Physician GroupComment on above:Performed By: #### RENAL, MG #### [facility] [address] [place] [address] USANeutrophils/100 WBC (Bld)84.5 %Normal.The [facility] Physician GroupComment on above:Performed By: #### RENAL, MG #### [facility] [address] [place] [address] USANRBC%0.1 /100{WBC}Normal0-0.5The [facility] Comment on above:Performed By: #### RENAL, MG #### [facility] [address] [place] [address] USAPlatelet mean volume (Bld) [Entitic vol]7.8 fLNormal 6.6-10.1The [facility] Physician GroupComment on above:Performed By: #### RENAL, MG #### [facility] [address] [place] [address] USAPlatelets (Bld) [#/Vol]170 10*3/yHEbgftg700-004Ymn [facility] Physician GroupComment on above:Performed By: #### RENAL, MG #### [facility] [address] [place] [address] USARBC (Bld) [#/Vol]3.58 10*6/uLLow3.90-5.60The [facility] Physician GroupComment on above:Performed By: #### RENAL, MG #### [facility] [address] [place] [address] USAWBC (Bld) [#/Vol]15.0 10*3/uLHigh4.1-10.5The [facility] Physician GroupComment on above:Performed By: #### RENAL, MG #### [facility] [address] [place] [address] USAWhite Blood Count15.0 [CFU]/mLHigh4.1-10.5The [facility] Physician GroupComment on above:Performed By: #### RENAL, MG #### [facility] [address] [place] [address] USAGlucose Poct Glucometerson 57-83-5634Igdwpiw [Mass/Vol]298 mg/dLNoUNC Health Physician [facility] Medical CenterComment on above:Result Comment: Random Glucose Reference Range is dependent on time and content of last meal. Glucose of more than 200 mg/dL in a nonstressed, ambulatory subject supports the diagnosis of Diabetes Mellitus. PERFORMED BY: [place] [address] PATHOLOGIST TRAVELING SECRETARY CARLOS BIRMINGHAM M.D.Performed By: #### HEPACUTE, HBCAB, HBSAB #### [facility] ,Glucose [Mass/Vol]299 mg/dLMartin Memorial [facility] Systems Physician [facility] Medical CenterComment on above: Result Comment: Random Glucose Reference Range is dependent on time and content of last meal. Glucose of more than 200 mg/dL in a nonstressed, ambulatory subject supports the diagnosis of Diabetes Mellitus. PERFORMED BY: [place] [address] PATHOLOGIST TRAVELING SECRETARY CARLOS BIRMINGHAM M.D.Performed By: #### HEPACUTE, HBCAB, HBSAB #### [facility] ,Czughvy0Cqz8: Cleaned MeterNormSt. Joseph's Children's Hospital Physician [facility]ner Medical CenterComment on above: Result Comment: PERFORMED BY: [address] [address] PATHOLOGIST TRAVELING SECRETARY CARLOS BIRMINGHAM M.D.Performed By: #### HEPACUTE, HBCAB, HBSAB #### [facility] ,Glucose [Mass/Vol]143 mg/dLNoUNC Health Physician GroupComment on above: Result Comment: Random Glucose Reference Range is dependent on time and content of last meal. Glucose of more than 200 mg/dL in a nonstressed, ambulatory subject supports the diagnosis of Diabetes Mellitus.Performed By: #### HEPACUTE, HBCAB, HBSAB #### [facility] ,Glucose [Mass/Vol]218 mg/dLNoUNC Health Physician GroupComment on above: Result Comment: Random Glucose Reference Range is dependent on time and content of last meal. Glucose of more than 200 mg/dL in a nonstressed, ambulatory subject supports the diagnosis of Diabetes Mellitus. PERFORMED BY: [place] [address] PATHOLOGIST TRAVELING SECRETARY CARLOS BIRMINGHAM M.D.Performed By: #### GLULS #### Point of Care testing ,Magnesiumon 82-18-8558Uucsrkpqr [Mass/Vol]2.5 mg/dLNormal1.9-2.7The [facility] Physician GroupComment on above:Result Comment: PERFORMED BY: [place] [address] PATHOLOGIST TRAVELING SECRETARY CARLOS BIRMINGHAM M.D.Performed By: #### RENAL, MG #### [facility] [address] [place] [address] USARenal Function Panelon 97-39-4733Nqgfkfg [Mass/Vol]3.1 g/dLLow3.5-5.7The [facility] Physician GroupComment on above:Performed By: #### RENAL, MG #### [facility] [address] [place] [address] USAAnion gap [Moles/Vol]19.1 mmol/LHigh6.0-15.0The [facility] Physician GroupComment on above:Performed By: #### RENAL, MG #### [facility] [address] [place] [address] USACalcium [Mass/Vol]8.3 mg/dLLow8.6-10.3The [facility] Physician GroupComment on above:Performed By: #### RENAL, MG #### [facility] [address] [place] [address] USAChloride [Moles/Vol]93 mmol/CVdq72-577Nuc [facility] Physician GroupComment on above:Performed By: #### RENAL, MG #### [facility] [address] [place] [address] USACO2 [Moles/Vol]24.8 mmol/EFcqmnl27.0-31.0The [facility] Physician GroupComment on above:Performed By: #### RENAL, MG #### [place] [address] USACreatinine [Mass/Vol]5.68 mg/dLHigh0.70-1.30The [facility] Physician GroupComment on above:Performed By: #### RENAL, MG #### [facility] [address] [place] [address] USACreatinine Clr Calc Eqcixjgr10.03NormGood Samaritan Hospitale [facility] Physician GroupComment on above:Performed By: #### RENAL, MG #### [place] [address] USAGFR/1.73 sq M.predicted MDRD (S/P/Bld) [Vol rate/Area] 10.455 mL/min/{1.73_m2}NormalThe [facility] Physician GroupComment on above: Performed By: #### RENAL, MG #### [place] [address] USAGlucose [Mass/Vol]228 mg/oDNpri00-058Ljd [facility] Physician GroupComment on above:Result Comment: Random Glucose Reference Range is dependent on time and content of last meal. Glucose of more than 200 mg/dL in a nonstressed, ambulatory subject supports the diagnosis of Diabetes Mellitus. ADA recommended reference rangePerformed By: #### RENAL, MG #### [place] [address] USAPhosphate [Mass/Vol]7.2 mg/dLHigh2.5-4.5The [facility] Physician GroupComment on above:Performed By: #### RENAL, MG #### [place] [address] USAPotassium [Moles/Vol]4.9 mmol/LNormal3.5-5.1The [facility] Physician GroupComment on above:Performed By: #### RENAL, MG #### [place] [address] USASodium [Moles/Vol]132 mmol/XRvq953-772Uzk [facility] Physician GroupComment on above:Performed By: #### RENAL, MG #### [place] [address] USAUrea nitrogen [Mass/Vol]65 mg/dLHigh7-25The [facility] Physician GroupComment on above:Performed By: #### RENAL, MG #### [place] [address] USABasic Metabolic Panelon 25-70-9397Zewts gap [Moles/Vol] 17.6 mmol/LHigh6.0-15.0The [facility] Physician GroupComment on above:Performed By: #### RENAL, MG #### [place] [address] USACalcium [Mass/Vol]8.4 mg/dLLow8.6-10.3The [facility] Physician GroupComment on above:Performed By: #### RENAL, MG #### [place] [address] USACO2 [Moles/Vol]21.2 mmol/BEnizvs27.0-31.0The [facility] Physician GroupComment on above:Performed By: #### RENAL, MG #### [place] [address] USACreatinine [Mass/Vol]6.64 mg/dLHigh0.70-1.30The [facility] Physician GroupComment on above:Performed By: #### RENAL, MG #### [place] [address] USACreatinine Clr Calc Wdsiohwm63.16NormalThe [facility] Physician GroupComment on above:Result Comment: PERFORMED BY: [place] [address] PATHOLOGIST TRAVELING SECRETARY CARLOS BIRMINGHAM M.D.Performed By: #### RENAL, MG #### [place] [address] USAGFR/1.73 sq M.predicted MDRD (S/P/Bld) [Vol rate/Area] 8.667 mL/min/{1.73_m2}NormalThe [facility] Physician GroupComment on above: Performed By: #### RENAL, MG #### [place] [address] USAGlucose [Mass/Vol]149 mg/rTCesr30-635Ffv [facility] Physician GroupComment on above:Result Comment: Random Glucose Reference Range is dependent on time and content of last meal. Glucose of more than 200 mg/dL in a nonstressed, ambulatory subject supports the diagnosis of Diabetes Mellitus. ADA recommended reference rangePerformed By: #### RENAL, MG #### [place] [address] USAPotassium [Moles/Vol]4.8 mmol/LNormal3.5-5.1The [facility] Physician [facility] CenterComment on above:Performed By: #### RENAL, MG #### [place] [address] USASodium [Moles/Vol]133 mmol/LHaj116-520Wep [facility] Physician GroupComment on above:Performed By: #### RENAL, MG #### [place] [address] USAUrea nitrogen [Mass/Vol]73 mg/dLHigh7-25The [facility] Physician GroupComment on above:Performed By: #### RENAL, MG #### [place] [address] USAComplete Blood Count Auto Diffon 95-49-9732Yihlgftmc (Bld) [#/Vol]0.1 10*3/uLNormal0.0-0.2The [facility] Physician GroupComment on above: Result Comment: PERFORMED BY: [place] [address] PATHOLOGIST TRAVELING SECRETARY CARLOS BIRMINGHAM M.D.Performed By: #### RENAL, MG #### [place] [address] USABasophils/100 WBC (Bld)0.6 %Normal.The [facility] Physician GroupComment on above:Performed By: #### RENAL, MG #### [place] [address] USAEosinophils (Bld) [#/Vol]0.5 10*3/uLHigh0.0-0.45The [facility] Physician GroupComment on above:Performed By: #### RENAL, MG #### [place] [address] USAEosinophils/100 WBC (Bld)3.6 %Normal.The [facility] Physician GroupComment on above:Performed By: #### RENAL, MG #### [place] [address] USAErythrocyte distribution width (RBC) [Ratio]14.9 %High 12.0-14.8The [facility] Physician GroupComment on above:Performed By: #### RENAL, MG #### [place] [address] USAHematocrit (Bld) [Volume fraction]33.2 %Low38.8-50.0The [facility] Physician GroupComment on above:Performed By: #### RENAL, MG #### [place] [address] USAHemoglobin (Bld) [Mass/Vol]11.1 g/dLLow13.0-17.0The [facility] Physician GroupComment on above:Performed By: #### RENAL, MG #### [place] [address] USALymphocytes (Bld) [#/Vol]1.6 10*3/uLNormal1.00-4.8The [facility] Physician GroupComment on above:Performed By: #### RENAL, MG #### [facility] [address] [place] [id number] USALymphocytes/100 WBC (Bld)12.8 %Normal.The [facility] Physician GroupComment on above:Performed By: #### RENAL, MG #### [facility] [address] [place] [address] USAH (RBC) [Entitic mass]28.9 bwYxopax15.5-35.2The [facility] Physician GroupComment on above:Performed By: #### RENAL, MG #### [facility] [address] [place] [address] USAMCV (RBC) [Entitic vol]86.6 nZFsrzyt28.5-101The [facility] Physician GroupComment on above:Performed By: #### RENAL, MG #### [facility] [address] [place] [address] USAMean Corpuscular HGB Conc33.4 g/oYQkcmvl84.5-35.6The [facility] Physician GroupComment on above:Performed By: #### RENAL, MG #### [facility] [address] [place] [address] USAMonocytes (Bld) [#/Vol]1.1 10*3/uLHigh0.0-0.8The [facility] Physician GroupComment on above:Performed By: #### RENAL, MG #### [facility] [address] [place] [id number] USAMonocytes/100 WBC (Bld)9.0 %Normal.The [facility] Physician GroupComment on above:Performed By: #### RENAL, MG #### [facility] [address] [place] [id number] USANeutrophils (Bld) [#/Vol]9.3 10*3/uLHigh1.8-7.7The [facility] Physician GroupComment on above:Performed By: #### RENAL, MG #### [facility] [address] [place] [id number] USANeutrophils/100 WBC (Bld)74.0 %Normal.The [facility] Physician GroupComment on above:Performed By: #### RENAL, MG #### [place] [address] USANRBC%0.1 /100{WBC}Normal0-0.5The [facility] Comment on above:Performed By: #### RENAL, MG #### [place] [address] USAPlatelet mean volume (Bld) [Entitic vol]7.2 fLNormal 6.6-10.1The [facility] Physician GroupComment on above:Performed By: #### RENAL, MG #### [place] [address] USAPlatelets (Bld) [#/Vol]160 10*3/xUXcicqbtc848-708Xdb [facility] Physician GroupComment on above:Performed By: #### RENAL, MG #### [place] [address] USARBC (Bld) [#/Vol]3.83 10*6/uLLow3.90-5.60The [facility] Physician GroupComment on above:Performed By: #### RENAL, MG #### [place] [address] USAWBC (Bld) [#/Vol]12.5 10*3/uLHigh4.1-10.5The [facility] Physician GroupComment on above:Performed By: #### RENAL, MG #### [place] [address] USAWhite Blood Count12.5 [CFU]/mLHigh4.1-10.5The [facility] Physician GroupComment on above:Performed By: #### RENAL, MG #### [place] [address] USAFerritinon 03-06-8622Gxtjtcmm [Mass/Vol]384.2 ng/mLHigh 23.9-336.2The [facility] Physician GroupComment on above:Result Comment: PERFORMED BY: [place] [address] PATHOLOGIST TRAVELING SECRETARY CARLOS BIRMINGHAM M.D.Performed By: #### GLULS #### Point of Care testing ,Glucose Poct Glucometerson 90-66-6398Adahkly [Mass/Vol]295 mg/dLNoUNC Health Physician GroupComment on above:Result Comment: Random Glucose Reference Range is dependent on time and content of last meal. Glucose of more than 200 mg/dL in a nonstressed, ambulatory subject supports the diagnosis of Diabetes Mellitus. PERFORMED BY: [place] [address] PATHOLOGIST TRAVELING SECRETARY CARLOS BIRMINGHAM M.D.Performed By: #### RENAL, MG #### [place] [address] USAGlucose [Mass/Vol]258 mg/dLNoUNC Health Physician GroupComment on above:Result Comment: Random Glucose Reference Range is dependent on time and content of last meal. Glucose of more than 200 mg/dL in a nonstressed, ambulatory subject supports the diagnosis of Diabetes Mellitus. PERFORMED BY: [place] [address] PATHOLOGIST TRAVELING SECRETARY CARLOS BIRMINGHAM M.D.Performed By: #### RENAL, MG #### [place] [address] USAGlucose [Mass/Vol]178 mg/dLNoUNC Health Physician GroupComment on above:Result Comment: Random Glucose Reference Range is dependent on time and content of last meal. Glucose of more than 200 mg/dL in a nonstressed, ambulatory subject supports the diagnosis of Diabetes Mellitus. PERFORMED BY: [place] [address] PATHOLOGIST TRAVELING SECRETARY CARLOS BIRMINGHAM M.D.Performed By: #### RENAL, MG #### [place] [address] USAGlucose [Mass/Vol]169 mg/dLNormSt. Joseph's Children's Hospital Physician GroupComment on above:Result Comment: Random Glucose Reference Range is dependent on time and content of last meal. Glucose of more than 200 mg/dL in a nonstressed, ambulatory subject supports the diagnosis of Diabetes Mellitus. PERFORMED BY: [place] [phone] PATHOLOGIST TRAVELING SECRETARY CARLOS BIRMINGHAM M.D.Performed By: #### GLULS #### Point of Care testing ,Xthwezw4Its0: Cleaned MeterNoUNC Health Physician GroupComment on above: Result Comment: PERFORMED BY: [place] [phone] PATHOLOGIST TRAVELING SECRETARY CARLOS BIRMINGHAM M.D.Performed By: #### RENAL, MG #### [place] [address] USAGlucose [Mass/Vol]154 mg/dLMartin Memorial Health Systems Physician [facility] Medical CenterComment on above:Result Comment: Random Glucose Reference Range is dependent on time and content of last meal. Glucose of more than 200 mg/dL in a nonstressed, ambulatory subject supports the diagnosis of Diabetes Mellitus.Performed By: #### RENAL, MG #### [place] [address] USAGlucose [Mass/Vol]146 mg/dLNoUNC Health Physician Ochsner Medical CenterComment on above:Result Comment: Random Glucose Reference Range is dependent on time and content of last meal. Glucose of more than 200 mg/dL in a nonstressed, ambulatory subject supports the diagnosis of Diabetes Mellitus. PERFORMED BY: [place] [phone] PATHOLOGIST TRAVELING SECRETARY CARLOS BIRMINGHAM M.D.Performed By: #### RENAL, MG #### [place] [address] USAHepatitis Acute Panelon 58-92-3006CCqAw ScreenNegative NormalNegativeThe [facility] Physician [facility] Medical CenterComment on above:Performed By: #### HEPACUTE, HBCAB, HBSAB #### [facility] ,Hepatitis A Antibody IgMNegativeNormalNegativeThe [facility] Comment on above:Result Comment: A negative anti-HAV IgM result suggests no recent or current HAV infection.Performed By: #### HEPACUTE, HBCAB, HBSAB #### [facility] ,Hepatitis B Core Antibody IgMNegativeNormalNegativeThe [facility] Physician GroupComment on above:Performed By: #### HEPACUTE, HBCAB, HBSAB #### [facility] ,Hepatitis C Virus AntibodyNon-ReactiveNormalNon ReactiveThe [facility] Physician GroupComment on above:Performed By: #### HEPACUTE, HBCAB, HBSAB #### [facility] ,Interpretation Hepatitis CCommentNormal.The [facility] Physician GroupComment on above:Result Comment: Not infected with HCV unless early or acute infection is suspected (which may be delayed in an immunocompromised individual), or other evidence exists to indicate HCV infection.Performed By: #### HEPACUTE, HBCAB, HBSAB #### [facility] ,Hepatitis B Core Antibodyon 60-66-3224Rygtsjbbj B Core AntibodyNegativeNormal NegativeThe [facility] Physician GroupComment on above:Result Comment: Performed at: [facility] [id number] Manager Of Medical: Mata Brian PhD, Phone: [phone] PERFORMED BY: [place] [id number] PATHOLOGIST TRAVELING SECRETARY CARLOS BIRMINGHAM M.D.Performed By: #### HEPACUTE, HBCAB, HBSAB #### [facility] ,Hepatitis B Surface Antibodyon 36-01-7062Asaozejpa B Surface Antibody Non-ReactiveNormal.The [facility] Physician GroupComment on above:Result Comment: Non Reactive: Not immune to HBV infection. Anti-HBs undetectable or less than 10 mIU/mL. Reactive: Evidence of HBV immunity. Anti-HBs levels greater than 10 mIU/mL.Performed By: #### HEPACUTE, HBCAB, HBSAB #### [facility] ,Iron and TIBC Profileon 12-24-2024% Iron Pnnvrajwjc85.5 %Osni69-47Let [facility] Physician GroupComment on above:Performed By: #### GLULS #### Point of Care testing ,Iron [Mass/Vol]148 ug/xQTegpla47-668Ijn [facility] Physician GroupComment on above:Performed By: #### GLULS #### Point of Care testing ,Total Iron Binding Srhvjutu492 ug/cTYdu592-613Zsx [facility] Comment on above:Performed By: #### GLULS #### Point of Care testing ,Transferrin [Mass/Vol]140 mg/cWTxb442-949Cof [facility] Physician GroupComment on above:Performed By: #### GLULS #### Point of Care testing ,Magnesiumon 30-09-3779Sldeawlgw [Mass/Vol]2.5 mg/dLNormal1.9-2.7The [facility] Physician GroupComment on above:Result Comment: PERFORMED BY: [place] [address] PATHOLOGIST TRAVELING SECRETARY CARLOS BIRMINGHAM M.D.Performed By: #### GLULS #### Point of Care testing ,Renal Function Panelon 15-85-3801Aayvxwz [Mass/Vol]3.2 g/dLLow3.5-5.7The [facility] Physician GroupComment on above:Performed By: #### GLULS #### Point of Care testing ,Anion gap [Moles/Vol]18.0 mmol/LHigh6.0-15.0The [facility] Comment on above:Performed By: #### GLULS #### Point of Care testing ,Calcium [Mass/Vol]8.5 mg/dLLow8.6-10.3The [facility] Physician GroupComment on above:Performed By: #### GLULS #### Point of Care testing ,Chloride [Moles/Vol]99 mmol/WUzarjy47-277Kbk [facility] Physician GroupComment on above:Performed By: #### GLULS #### Point of Care testing ,Performed By: #### RENAL, MG #### [place] [address] USACO2 [Moles/Vol]19.9 mmol/LLow21.0-31.0The [facility] Physician GroupComment on above:Performed By: #### GLULS #### Point of Care testing ,Creatinine [Mass/Vol]6.40 mg/dLHigh0.70-1.30The [facility] Comment on above:Performed By: #### GLULS #### Point of Care testing ,Creatinine Clr Calc Micffxgc08.81NoUNC Health Physician GroupComment on above:Performed By: #### GLULS #### Point of Care testing ,GFR/1.73 sq M.predicted MDRD (S/P/Bld) [Vol rate/Area]9.059 mL/min/{1.73_m2} NormalThe [facility] Physician GroupComment on above:Performed By: #### GLULS #### Point of Care testing ,Glucose [Mass/Vol]148 mg/xFKvcu94-366Znv [facility] Physician GroupComment on above:Result Comment: Random Glucose Reference Range is dependent on time and content of last meal. Glucose of more than 200 mg/dL in a nonstressed, ambulatory subject supports the diagnosis of Diabetes Mellitus. ADA recommended reference rangePerformed By: #### GLULS #### Point of Care testing ,Phosphate [Mass/Vol]6.5 mg/dLHigh2.5-4.5The [facility] Physician GroupComment on above:Performed By: #### GLULS #### Point of Care testing ,Potassium [Moles/Vol]4.9 mmol/LNormal3.5-5.1The [facility] Comment on above:Performed By: #### GLULS #### Point of Care testing ,Sodium [Moles/Vol]132 mmol/GHqz383-070Slv [facility] Physician GroupComment on above:Performed By: #### GLULS #### Point of Care testing ,Urea nitrogen [Mass/Vol]70 mg/dLHigh7-25The [facility] Physician GroupComment on above:Performed By: #### GLULS #### Point of Care testing ,ABO/Rh Retypeon 61-91-9945WFR/RH Recheck ResultPositiveNoUNC Health Physician GroupComment on above:Order Comment: redrawResult Comment: PERFORMED BY: [facility] [address] [place] [address] PATHOLOGIST TRAVELING SECRETARY CARLOS BIRMINGHAM M.D.Basic Metabolic Panelon 85-31-3937Nhxxa gap [Moles/Vol]15.6 mmol/LHigh6.0-15.0[facility] Physician GroupComment on above:Performed By: #### HEPACUTE, HBCAB, HBSAB #### [facility] ,Calcium [Mass/Vol]9.0 mg/dLNormal8.6-10.3TButler Hospital Physician GroupComment on above:Performed By: #### HEPACUTE, HBCAB, HBSAB #### [facility] ,Chloride [Moles/Vol]104 mmol/RYuqtyr24-360Xmn [facility] Physician GroupComment on above:Performed By: #### HEPACUTE, HBCAB, HBSAB #### [facility] ,CO2 [Moles/Vol]19.8 mmol/LLow21.0-31.0The [facility] Physician GroupComment on above:Performed By: #### HEPACUTE, HBCAB, HBSAB #### [facility] ,Creatinine [Mass/Vol]5.46 mg/dLHigh0.70-1.30The [facility] Comment on above:Performed By: #### HEPACUTE, HBCAB, HBSAB #### [facility] ,Creatinine Clr Calc Dvetsvtb98.66NoUNC Health Physician GroupComment on above:Performed By: #### HEPACUTE, HBCAB, HBSAB #### [facility] ,GFR/1.73 sq M.predicted MDRD (S/P/Bld) [Vol rate/Area]10.962 mL/min/{1.73_m2} NormalHollywood Medical Center Physician GroupComment on above:Performed By: #### HEPACUTE, HBCAB, HBSAB #### [facility] ,Glucose [Mass/Vol]288 mg/eBPutg12-672Ysv [facility] Physician GroupComment on above:Result Comment: Random Glucose Reference Range is dependent on time and content of last meal. Glucose of more than 200 mg/dL in a nonstressed, ambulatory subject supports the diagnosis of Diabetes Mellitus. ADA recommended reference rangePerformed By: #### HEPACUTE, HBCAB, HBSAB #### [facility] ,Potassium [Moles/Vol]5.4 mmol/LHigh3.5-5.1The [facility] Physician GroupComment on above:Performed By: #### HEPACUTE, HBCAB, HBSAB #### [facility] ,Sodium [Moles/Vol]134 mmol/NZei035-488Dge [facility] Physician GroupComment on above:Performed By: #### HEPACUTE, HBCAB, HBSAB #### [facility] ,Urea nitrogen [Mass/Vol]65 mg/dLHigh7-25The [facility] Physician GroupComment on above:Performed By: #### HEPACUTE, HBCAB, HBSAB #### [facility] ,Anion gap [Moles/Vol]17.6 mmol/LHigh6.0-15.0The [facility] Comment on above:Performed By: #### HEPACUTE, HBCAB, HBSAB #### [facility] ,Calcium [Mass/Vol]9.2 mg/dLNormal8.6-10.3The [facility] Physician GroupComment on above:Performed By: #### HEPACUTE, HBCAB, HBSAB #### [facility] ,Chloride [Moles/Vol]104 mmol/YCkvjse17-632Ecd [facility] Physician GroupComment on above:Performed By: #### HEPACUTE, HBCAB, HBSAB #### [facility] ,CO2 [Moles/Vol]17.2 mmol/LLow21.0-31.0The [facility] Physician GroupComment on above:Performed By: #### HEPACUTE, HBCAB, HBSAB #### [facility] ,Creatinine [Mass/Vol]5.53 mg/dLHigh0.70-1.30The [facility] Comment on above:Performed By: #### HEPACUTE, HBCAB, HBSAB #### [facility] ,Creatinine Clr Calc Hjhkxeqw68.41NormGood Samaritan Hospitale [facility] Physician GroupComment on above:Result Comment: PERFORMED BY: [facility] [place] [address] PATHOLOGIST TRAVELING SECRETARY CARLOS BIRMINGHAM M.D.Performed By: #### HEPACUTE, HBCAB, HBSAB #### [facility] ,GFR/1.73 sq M.predicted MDRD (S/P/Bld) [Vol rate/Area]10.795 mL/min/{1.73_m2} NormalThe [facility] Physician GroupComment on above:Performed By: #### HEPACUTE, HBCAB, HBSAB #### [facility] ,Glucose [Mass/Vol]280 mg/jFLjre17-491Jjm [facility] Physician GroupComment on above:Result Comment: Random Glucose Reference Range is dependent on time and content of last meal. Glucose of more than 200 mg/dL in a nonstressed, ambulatory subject supports the diagnosis of Diabetes Mellitus. ADA recommended reference rangePerformed By: #### HEPACUTE, HBCAB, HBSAB #### [facility] ,Potassium [Moles/Vol]5.8 mmol/LHigh3.5-5.1The [facility] Physician GroupComment on above:Result Comment: Hemolysis is present at a level that could interfere with the result. Contact lab if redraw is requiredPerformed By: #### HEPACUTE, HBCAB, HBSAB #### [facility] ,Sodium [Moles/Vol]133 mmol/HJsj813-572Ycr [facility] Physician GroupComment on above:Performed By: #### HEPACUTE, HBCAB, HBSAB #### [facility] ,Urea nitrogen [Mass/Vol]66 mg/dLHigh7-25The [facility] Physician GroupComment on above:Performed By: #### HEPACUTE, HBCAB, HBSAB #### [facility] ,Creatine Kinaseon 01-41-0010GU [Catalytic activity/Vol]190 U/IOycgtk09-847Lir [facility] Physician GroupComment on above:Result Comment: PERFORMED BY: [place] [address] PATHOLOGIST TRAVELING SECRETARY CARLOS BIRMINGHAM M.D.Performed By: #### RENAL, MG #### [place] [address] USAECG 12 lead ECGon 42-39-4848JMW 12 lead ECGOHIOHEALTH O'[facility] [address] Electrocardiograph Report Signed Patient: Rashard Lyman MR#: [id number] : 1960 Acct:[id number] Age/Sex: 64 / M ADM Date: 12/23/24 Loc: 4N Room: [address] [place] [address] Type: ADM IN Attending Dr: Leno Dela [...] in Anterior leads Confirmed by Adrian Farmer ([id number]) on 12/23/2024 2:14:11 PM Referred By: Electronically Signed By: Adrian Farmer Transcribed By: MUS Signed By Adrian Farmer MD 12/23/24 1414NoUNC Health Physician GroupECH echo transthoracicon 09-60-9157PYL echo transthoracicOHIOHEALTH O'BLENESS [facility]ITAL Main [place] [id number] Echocardiogram Signed Patient: Rashard Lyman MR#: [id number] : 1960 Acct:[id number] Age/Sex: 64 / M ADM Date: 12/23/24 Loc: 4N Room: 8I8982-6 Type: ADM IN Attending Dr: Leno Dela [...] 1027 Signed By: Ghislaine Arias MD 12/23/24 1135[facility] Ferritinon 86-25-3208Xsavfolv [Mass/Vol]378.8 ng/fNOdwa56.9-336.2The [facility] Physician [facility]ner Medical CenterComment on above:Result Comment: PERFORMED BY: [place] [address] [place] [address] PATHOLOGIST TRAVELING SECRETARY CARLOS BIRMINGHAM M.D.Performed By: #### HEPACUTE, HBCAB, HBSAB #### [facility] ,Glucose Poct Glucometerson 11-86-4764Wwmlcjm [Mass/Vol]223 mg/dLNoUNC Health Physician GroupComment on above:Result Comment: Random Glucose Reference Range is dependent on time and content of last meal. Glucose of more than 200 mg/dL in a nonstressed, ambulatory subject supports the diagnosis of Diabetes Mellitus. PERFORMED BY: [place] [address] PATHOLOGIST TRAVELING SECRETARY CARLOS BIRMINGHAM M.D.Performed By: #### HEPACUTE, HBCAB, HBSAB #### [facility] ,Glucose [Mass/Vol]201 mg/dLNoUNC Health Physician GroupComment on above: Result Comment: Random Glucose Reference Range is dependent on time and content of last meal. Glucose of more than 200 mg/dL in a nonstressed, ambulatory subject supports the diagnosis of Diabetes Mellitus. PERFORMED BY: [place] [address] PATHOLOGIST TRAVELING SECRETARY CARLOS BIRMINGHAM M.D.Performed By: #### GLULS #### Point of Care testing ,Glucose [Mass/Vol]234 mg/dLNoUNC Health Physician GroupComment on above: Result Comment: Random Glucose Reference Range is dependent on time and content of last meal. Glucose of more than 200 mg/dL in a nonstressed, ambulatory subject supports the diagnosis of Diabetes Mellitus. PERFORMED BY: [place] [address] PATHOLOGIST TRAVELING SECRETARY CARLOS BIRMINGHAM M.D.Performed By: #### RENAL, MG #### [place] [address] USAGlucose [Mass/Vol]292 mg/dLNoUNC Health Physician GroupComment on above:Result Comment: Random Glucose Reference Range is dependent on time and content of last meal. Glucose of more than 200 mg/dL in a nonstressed, ambulatory subject supports the diagnosis of Diabetes Mellitus. PERFORMED BY: [facility] [address] [place] [address] PATHOLOGIST TRAVELING SECRETARY CARLOS BIRMINGHAM M.D.Performed By: #### GLULS #### Point of Care testing ,Hemogram CBC Without Diffon 83-08-4826Wmeguhvcmoz distribution width (RBC) [Ratio]15.0 %High12.0-14.8The [facility] Physician GroupComment on above: Performed By: #### HEPACUTE, HBCAB, HBSAB #### [facility] ,Hematocrit (Bld) [Volume fraction]39.1 %Iouxke54.8-50.0The [facility] Physician GroupComment on above:Performed By: #### HEPACUTE, HBCAB, HBSAB #### [facility] ,Hemoglobin (Bld) [Mass/Vol]12.7 g/dLLow13.0-17.0The [facility] Comment on above:Performed By: #### HEPACUTE, HBCAB, HBSAB #### [facility] ,MCH (RBC) [Entitic mass]28.4 cpJxqury41.5-35.2The [facility] Comment on above:Performed By: #### HEPACUTE, HBCAB, HBSAB #### [facility] ,MCV (RBC) [Entitic vol]87.7 oIUtwjtb34.5-101The [facility] Comment on above:Performed By: #### HEPACUTE, HBCAB, HBSAB #### [facility] ,Mean Corpuscular HGB Conc32.4 g/dLLow32.5-35.6The [facility] Comment on above:Performed By: #### HEPACUTE, HBCAB, HBSAB #### [facility] ,Platelet mean volume (Bld) [Entitic vol]6.8 fLNormal6.6-10.1The [facility] Physician GroupComment on above:Result Comment: PERFORMED BY: [facility] [address] [place] [address] PATHOLOGIST TRAVELING SECRETARY CARLOS BIRMINGHAM M.D.Performed By: #### HEPACUTE, HBCAB, HBSAB #### [facility] ,Platelets (Bld) [#/Vol]225 10*3/iHIteuib507-389Wnp [facility] Comment on above:Performed By: #### HEPACUTE, HBCAB, HBSAB #### [facility] ,RBC (Bld) [#/Vol]4.46 10*6/uLNormal3.90-5.60The [facility] Comment on above:Performed By: #### HEPACUTE, HBCAB, HBSAB #### [facility] ,White Blood Count16.0 [CFU]/mLHigh4.1-10.5The [facility] Physician GroupComment on above:Performed By: #### HEPACUTE, HBCAB, HBSAB #### [facility] ,Iron and TIBC Profileon 12-23-2024% Iron Rdwhfzjnyv42.6 %Mkt85-18Qqi [facility] Physician GroupComment on above:Performed By: #### HEPACUTE, HBCAB, HBSAB #### [facility] ,Iron [Mass/Vol]30 ug/ePPzv94-707Vnj [facility] Physician GroupComment on above: Performed By: #### HEPACUTE, HBCAB, HBSAB #### [facility] ,Total Iron Binding Pmmqnrsv471 ug/yHAbj670-474Ojh [facility] Comment on above:Performed By: #### HEPACUTE, HBCAB, HBSAB #### [facility] ,Transferrin [Mass/Vol]158 mg/nKGbg643-916Cpc [facility] Physician GroupComment on above:Performed By: #### HEPACUTE, HBCAB, HBSAB #### [facility] ,Potassiumon 54-88-0799Gkermwlnn [Moles/Vol]4.8 mmol/LNormal3.5-5.1The [facility] Physician GroupComment on above:Result Comment: PERFORMED BY: [facility] [address] PATHOLOGIST TRAVELING SECRETARY CARLOS BIRMINGHAM M.D.Performed By: #### RENAL, MG #### [place] [address] USARenal Function Panelon 20-36-2745Eibjljt [Mass/Vol]3.4 g/dLLow3.5-5.7The [facility] Physician GroupComment on above:Performed By: #### RENAL #### [place] [address] USAAnion gap [Moles/Vol]13.6 mmol/LNormal6.0-15.0The [facility] Physician GroupComment on above:Performed By: #### RENAL #### [place] [address] USACalcium [Mass/Vol]8.9 mg/dLNormal8.6-10.3The [facility] Physician GroupComment on above:Performed By: #### RENAL #### [place] [address] USAChloride [Moles/Vol]100 mmol/WWzanhs49-393Jvt [facility] Physician GroupComment on above:Performed By: #### RENAL #### [place] [address] USACO2 [Moles/Vol]24.3 mmol/FEludip75.0-31.0The [facility] Physician GroupComment on above:Performed By: #### RENAL #### [place] [address] USACreatinine [Mass/Vol]5.69 mg/dLHigh0.70-1.30The [facility] Physician GroupComment on above:Performed By: #### RENAL #### [place] [address] USACreatinine Clr Calc Oehngdve39.86NormalThe [facility] Physician GroupComment on above:Result Comment: PERFORMED BY: [place] [address] PATHOLOGIST TRAVELING SECRETARY CARLOS BIRMINGHAM M.D.Performed By: #### RENAL #### [place] [address] USAGFR/1.73 sq M.predicted MDRD (S/P/Bld) [Vol rate/Area] 10.432 mL/min/{1.73_m2}NormalThe [facility] Physician GroupComment on above: Performed By: #### RENAL #### [place] [address] USAGlucose [Mass/Vol]209 mg/sGLxky12-737Atx [facility] Physician GroupComment on above:Result Comment: Random Glucose Reference Range is dependent on time and content of last meal. Glucose of more than 200 mg/dL in a nonstressed, ambulatory subject supports the diagnosis of Diabetes Mellitus. ADA recommended reference rangePerformed By: #### RENAL #### [place] [address] USAPhosphate [Mass/Vol]6.9 mg/dLHigh2.5-4.5The [facility] Physician GroupComment on above:Performed By: #### RENAL #### [place] [address] USAPotassium [Moles/Vol]4.9 mmol/LNormal3.5-5.1The [facility] Physician GroupComment on above:Performed By: #### RENAL #### [place] [address] USASodium [Moles/Vol]133 mmol/EJec790-432Clj [facility] Physician GroupComment on above:Performed By: #### RENAL #### [place] [address] USAUrea nitrogen [Mass/Vol]64 mg/dLHigh7-25The [facility] Physician GroupComment on above:Performed By: #### RENAL #### [place] [address] USATroponin I High Sensitivityon 03-26-3442Efivjkuq I High Weohbxepuxm373Amz scale high0-20The [facility] Physician GroupComment on above: Result Comment: Critical Result : Called to and read back by: MAC BECERRA at: 12/23/2024 06:03:32 by:ALAN The Troponin units of report have been changed to meet the Chest Pain Accreditation requirement, element EC5.M1l2. Troponin units are changed from pg/ml to ng/L. Also, the decimal is removed and results are in whole numbers. PERFORMED BY: [place] [address] PATHOLOGIST TRAVELING SECRETARY CARLOS BIRMINGHAM M.D.Performed By: #### HEPACUTE, HBCAB, HBSAB #### [facility] ,Troponin I High Mfxaarhkuii439Hge scale high0-20The [facility] Comment on above:Result Comment: Critical Result : Called to and read back by: MAC BECERRA at: 12/23/2024 04:28:13 by:ALAN The Troponin units of report have been changed to meet the Chest Pain Accreditation requirement, element EC5.M1l2. Troponin units are changed from pg/ml to ng/L. Also, the decimal is removed and results are in whole numbers. PERFORMED BY: [place] [address] PATHOLOGIST TRAVELING SECRETARY CARLOS BIRMINGHAM M.D.Performed By: #### RENAL, MG #### [place] [address] USAType and Screenon 49-57-2753DGE and Rh group Nom (Bld) Blood group A Rh(D) positiveNoUNC Health Physician GroupUS renal BIon 43-89-5233HS renal [facility] Main [place] [address] [place] [address] Ultrasound Report Signed Patient: Rashard Lyman MR#: [id number] : 1960 Acct:[id number] Age/Sex: 64 / M ADM Date: 12/23/24 Loc: Room: [address] [place] [address] Type: ADM IN Attending Dr: Leno Dela [...] Jr., D.O. 12/23/2024 3:36 PM Dictation Location: [place] [address] Tech: Diana Bernard Transcribed By: [facility] 12/23/24 153 Dictated By: Clayton Cuevas Jr, DO 12/23/24 153 Signed By: 12/23/24 1536[facility] Physician GroupNo Panel InformationOrdered By: Chino Elliott on 89-64-3633Nhxizvpbfvdrq Pathology TestSee commentMercy HealthComment on above:See report. Scanned copy available in EMR.Pathology Request for Lab Corpon 66-74-0926Ifsrthypw Request for Lab Truman NormalThe [facility] Physician GroupComment on above:Order Comment: RIGHT FOREFOOTResult Comment: See report. Scanned copy available in EMR. PERFORMED BY: [facility] [address] [place] [address] PATHOLOGIST TRAVELING SECRETARY CARLOS BIRMINGHAM M.D.Performed By: #### GLULS #### Point of Care testing ,No Panel InformationOrdered By: Chino Elliott on 27-11-6630Qpjvosxmlpdgo Pathology TestSee commentMercy HealthComment on above:See report. Scanned copy available in EMR.Pathology Request for Lab Corpon 00-59-0414Bwzgriioc Request for Lab CorpNoUNC Health Physician Group Comment on above:Order Comment: RIGHT HALLUXResult Comment: See report. Scanned copy available in EMR. PERFORMED BY: [facility] [address] [place] [address] PATHOLOGIST TRAVELING SECRETARY NIMA MCCLELLAN M.D.Performed By: #### HEPACUTE, HBCAB, HBSAB #### [facility] ,BLOOD UREA NITROGENon 53-58-1120Tikf nitrogen [Mass/Vol]40 mg/dLHigh5-27 [facility]ust[facility] Rehabilitation HospitalComment on above:Performed By: #### ELEC, 3094-0, OVERSIZE LOAD PILOT ESCORT, 05580-9 #### [facility] ([id number]) [address] [place] [address] #### 399[address]-9, HA1C #### [facility] ([id number]) [address] [place] [address], [address] [place], [place] [address]ZGT AND AUTO DIFFon 64-42-6823NYWJDIOE BASOPHIL0.0 X10E9/LNormal 0.0-0.2ProMedVan Ness campusComment on above:Performed By: #### UA #### [facility] ([id number]) [address] [place] [address]VIVSBHPV NEUTROPHIL5.2 X10E9/LNormal1.5-6.6ProSaint David'S Round Rock Medical CenterComment on above:Performed By: #### UA #### [facility] ([id number]) [address] [place] [address]Bdqnvtvkf/100 WBC (Bld)0.6 %[facility] Comment on above:Performed By: #### UA #### [facility] ([id number]) [address] [place] [address]Ybtdqmcxyjk (Bld) [#/Vol]0.6 10*3/uLHigh0.0-0.4Wilson HealthComment on above:Performed By: #### UA #### [facility] ([id number]) [address] [place] [address] 987[address]Bnjuwgsnwhz/100 WBC (Bld)6.5 %[facility] Comment on above:Performed By: #### UA #### [facility] ([id number]) [address] [place] [address]Bpskdunssuf distribution width (RBC) [Ratio]14.2 %Normal 11.5-15.0Wilson HealthComment on above:Performed By: #### UA #### [facility] ([id number]) [address] [place] [address]Lswsvfjbil (Bld) [Volume fraction]37.5 %Xfp19-00ZlkGsconmSaint David'S Round Rock Medical CenterComment on above:Performed By: #### UA #### [facility] ([id number]) [address] [place] [address]Oyzagdptny (Bld) [Mass/Vol]12.3 g/dLLow13.0-17.0Wilson HealthComment on above:Performed By: #### UA #### [facility] [facility] ([id number]) [address] [place] [address] 67711Qlhzupsvdzo (Bld) [#/Vol]1.9 10*3/uLNormal1.0-3.5PTrumbull Memorial HospitalComment on above:Performed By: #### UA #### [facility] ([id number]) [address] [place] [address] 58872Uennuafbciq/100 WBC (Bld)21.4 %NormalWilson Health Comment on above:Performed By: #### UA #### [facility] ([id number]) [address] [place] [address] 55580UKY (RBC) [Entitic mass]29.3 pfCmclhu12-71WacMaslkdSaint David'S Round Rock Medical CenterComment on above:Performed By: #### UA #### [facility] ([id number]) [address] [place] [address] 32522EVFK (RBC) [Mass/Vol]32.7 g/mNIyetmb96-65RscOqkvgbSaint David'S Round Rock Medical CenterComment on above:Performed By: #### UA #### [facility] ([id number]) [address] [place] [address] 47457RSB (RBC) [Entitic vol]90 iOQplydx49-551EjtGhltweWilson HealthComment on above:Performed By: #### UA #### [facility] ([id number]) [address] [place] [address] 08291Adboxcspk (Bld) [#/Vol]1.1 10*3/uLHigh0-0.9Wilson HealthComment on above:Performed By: #### UA #### [facility] ([id number]) [address] [place] [address] 59395Wtcwxpuwz/100 WBC (Bld)12.8 %NormalWilson Health Comment on above:Performed By: #### UA #### [facility] ([id number]) [address] [place] [address] 00531Jjdzvcahtny/100 WBC (Bld)58.7 %[facility] Comment on above:Performed By: #### UA #### [facility] ([id number]) [address] [place] [address] 32475Etrouuhx mean volume (Bld) [Entitic vol]6.6 fLLow7-12ProMed[facility]ust[facility] Rehabilitation HospitalComment on above:Performed By: #### UA #### [facility] ([id number]) [address] [place] [address] 49832Aygcfbfdd (Bld) [#/Vol]281 10*3/aPSvewus588-658BfvJxkcmv Fremont HospitalComment on above:Performed By: #### UA #### [facility] ([id number]) [address] [place] [address] 28496GUO COUNT4.19 X10E12/LNormal4.10-5.70[facility] Comment on above:Performed By: #### UA #### [facility] ([id number]) [address] [place] [address] 85799BKD (Bld) [#/Vol]8.8 10*3/uLNormal4.0-11.0Wilson HealthComment on above:Performed By: #### UA #### [facility] ([id number]) [address] [place] [address] 40009AEROALJRNOfz 49-11-5632Azlebgwozi [Mass/Vol]3.74 mg/dLHigh 0.70-1.20ProSaint David'S Round Rock Medical CenterComment on above:Result Comment: METHOD TRACEABLE TO IDMS STANDARDPerformed By: #### PHIL, 3094-0, OVERSIZE LOAD PILOT ESCORT, 68442-9 #### [facility] ([id number]) [address] [place] [address] 82015 #### 73830-6, HA1C #### [facility] ([id number]) [address] [facility], [address] [place], [place] [address]JDH/1.73 sq M.predicted among non-blacks MDRD (S/P/Bld) [Vol rate/Area]17 mL/min/{1.73_m2}Low>59ProSaint David'S Round Rock Medical CenterComment on above: Result Comment: Reported eGFR is based on the CKD-EPI 2020 equation that does not use a race coefficient.Performed By: #### PHIL, 3094-0, OVERSIZE LOAD PILOT ESCORT, 88683-2 #### [facility] ([id number]) [address] [place] [address] 80302 #### 24643-2, HA1C #### [facility] ([id number]) [address] [facility], [address] [place], [place] [address]OAZJRZXVNTVHpd 55-18-6802Kzdpy gap [Moles/Vol]8 mmol/LNormal5-15 ProMSharp [facility] Vista Medical CenterComment on above:Performed By: #### PHIL, 3094-0, OVERSIZE LOAD PILOT ESCORT, 32681-5 #### [facility] ([id number]) [address] [place] [address] 70900 #### 08174-3, HA1C #### [facility] ([id number]) [address], [address] [place], [place] [address]Ooqhsapt [Moles/Vol]106 mmol/ACgvpqf49-778UbjXqtikzSaint David'S Round Rock Medical CenterComment on above:Performed By: #### ELEC, 3094-0, OVERSIZE LOAD PILOT ESCORT, 51130-2 #### [facility] ([id number]) [address] [place] [address] 99210 #### 69341-2, HA1C #### [facility] ([id number]) [address], [address] [place], [place] [address]OM0 [Moles/Vol]21 mmol/ENgp09-34QzzSombduTrumbull Memorial Hospital Comment on above:Performed By: #### ELEC, 3094-0, OVERSIZE LOAD PILOT ESCORT, 62142-2 #### [facility] ([id number]) [address] [place] [address] 49069 #### 08105-5, HA1C #### [facility] ([id number]) [address], [address] [place], [place] [address]Mrpxomfbx [Moles/Vol]5.2 mmol/LHigh3.5-5.0ProSaint David'S Round Rock Medical CenterComment on above:Performed By: #### ELEC, 3094-0, OVERSIZE LOAD PILOT ESCORT, 27047-0 #### [facility] ([id number]) [address] [place] [address] 80719 #### 52888-0, HA1C #### [facility] ([id number]) [address], [address] [place], [place] [address]Fffdnk [Moles/Vol]135 mmol/XPgbxmn482-559PtqTpnzka Fremont HospitalComment on above:Performed By: #### ELEC, 3094-0, OVERSIZE LOAD PILOT ESCORT, 62214-1 #### [facility] ([id number]) [address] [place] [address] 63403 #### 71106-3, HA1C #### [facility] ([id number]) [address] [facility], [address] [place], [place] [address]QCNJN UREA NITROGENon 44-60-1908Mvoc nitrogen [Mass/Vol]50 mg/dL High5-27ProSaint David'S Round Rock Medical CenterComment on above:Performed By: #### UA #### [facility] ([id number]) [address] [place] [address] 95278QQXBWDXio 99-16-2455Aymthff [Mass/Vol]8.7 mg/dLNormal8.5-10.5 [facility]ust[facility] Rehabilitation HospitalComment on above:Performed By: #### MATTY CBCA, 1987-08, 71905-8 #### [facility] ([id number]) [address] [place] [address] 69726 #### 02698-3 #### [facility] ([id number]) [address] [facility], [address] [place], [place] [address]QIQ AND AUTO DIFFon 79-48-0878ZSLGGPGY BASOPHIL0.1 X10E9/LNormal 0.0-0.2ProMedVan Ness campusComment on above:Performed By: #### MATTY, CBCA, 1987-08, 84818-5 #### [facility] ([id number]) [address] [place] [address] 72446 #### 36243-8 #### [facility] ([id number]) [address] [facility], [address] [place], [place] [address]CLXFAURM NEUTROPHIL6.0 X10E9/LNormal1.5-6.6ProSaint David'S Round Rock Medical CenterComment on above:Performed By: #### MATTY CBCA, 1987-08, #### [facility] ([id number]) [address] [place] [address] 35051 #### 07678-3 #### [facility] ([id number]) [address], [address] [place], [place] [address]Wbcdwtnhq/100 WBC (Bld)0.6 %NormalWilson Health Comment on above:Performed By: #### MATTY CBCA, 1987-08, #### [facility] ([id number]) [address] [place] [address] 39396 #### 12272-6 #### [facility] ([id number]) [address] [facility], [address] [place], [place] [address]Lghwhwwwunm (Bld) [#/Vol]0.3 10*3/uLNormal0.0-0.4Wilson HealthComment on above:Performed By: #### MATTY CBCA, 1987-08, #### [facility] ([id number]) [address] [place] [address] 84802 #### 70644-3 #### [facility] ([id number]) [address] [facility], [address] [place], [place] [address]Ebbiesrsahd/100 WBC (Bld)3.1 %[facility] Comment on above:Performed By: #### MATTY, CBCA, 1987-08, #### [facility] ([id number]) [address] [place] [address] 67963 #### 93444-5 #### [facility] ([id number]) [address], [address] [place], [place] [address]Wkrtoxeisrf distribution width (RBC) [Ratio]13.5 %Normal 11.5-15.0ProSaint David'S Round Rock Medical CenterComment on above:Performed By: #### JAMES STARR, 1987-08, #### [facility] ([id number]) [address] [place] [address] 04552 #### 28909-8 #### [facility] ([id number]) [address], [address] [place], [place] [address]Wktrtcayaq (Bld) [Volume fraction]36.1 %Iwh32-38JjkQtjwdwSaint David'S Round Rock Medical CenterComment on above:Performed By: #### JAMES STARR, 1987-08, #### [facility] ([id number]) [address] [place] [address] 08210 #### 02012-9 #### [facility] ([id number]) [address], [address] [place], [place] [address]Aijofvlljz (Bld) [Mass/Vol]11.8 g/dLLow13.0-17.0Wilson HealthComment on above:Performed By: #### JAMES STARR, 1987-08, #### [facility] ([id number]) [address] [place] [address] 52237 #### 20504-5 #### [facility] ([id number]) [address], [address] [place], [place] [address]Rzkwrmhkdco (Bld) [#/Vol]2.0 10*3/uLNormal1.0-3.5PTrumbull Memorial HospitalComment on above:Performed By: #### JAMES STARR, 1987-08, 03847-4 #### [facility] ([id number]) [address] [place] [address] 18327 #### 78259-2 #### [facility] ([id number]) [address], [address] [place], [place] [address]Fgqevhsmuyr/100 WBC (Bld)20.7 %NormalWilson Health Comment on above:Performed By: #### JAMES STARR, 1987-08, 31997-6 #### [facility] ([id number]) [address] [place] [address] 78191 #### 83404-0 #### [facility] ([id number]) [address] [facility], [address] [place], [place] [address]ATD (RBC) [Entitic mass]29.1 dtPhmfpn37-78OajDasbuzSaint David'S Round Rock Medical CenterComment on above:Performed By: #### JAMES STARR, 1987-08, #### [facility] ([id number]) [address] [place] [address] 13208 #### 73729-0 #### [facility] ([id number]) [address] [facility], [address] [place], [place] [address]RHVW (RBC) [Mass/Vol]32.8 g/tXNxwfaa93-00XpzPhrbwxSaint David'S Round Rock Medical CenterComment on above:Performed By: #### JAMES STARR, 1987-08, #### [facility] ([id number]) [address] [place] [address] 10457 #### 82129-1 #### [facility] ([id number]) [address] [facility], [address] [place], [place] [address]PQS (RBC) [Entitic vol]89 lCEqtydj41-340HpjFlmrye Fremont HospitalComment on above:Performed By: #### JAMES STARR, 1987-08, #### [facility] ([id number]) [address] [place] [address] 40218 #### 74823-5 #### [facility] ([id number]) [address] [facility], [address] [place], [place] [address]Glsmzwmeb (Bld) [#/Vol]1.2 10*3/uLHigh0-0.9ProSaint David'S Round Rock Medical CenterComment on above:Performed By: #### MATTY CBCA, 1987-08, #### [facility] ([id number]) [address] [place] [address] 91229 #### 18885-5 #### [facility] ([id number]) [address] [facility], [address] [place], [place] [address]Ibvyvcvfs/100 WBC (Bld)12.3 %NormalWilson Health Comment on above:Performed By: #### MATTY CBCA, 1987-08, #### [facility] ([id number]) [address] [place] [address] 77991 #### 34898-2 #### [facility] ([id number]) [address] [facility], [address] [place], [place] [address]Jjicmihomlp/100 WBC (Bld)63.3 %NormalWilson Health Comment on above:Performed By: #### MATTY CBCA, 1987-08, #### [facility] ([id number]) [address] [place] [address] 29894 #### 08182-7 #### [facility] ([id number]) [address] [facility], [address] [place], [place] [address]Xutbheyi mean volume (Bld) [Entitic vol]7.7 fLNormal7-12 [facility] Rehabilitation HospitalComment on above:Performed By: #### MATTY CBCA, 1987-08, #### [facility] ([id number]) [address] [place] [address] 26839 #### 31380-4 #### [facility] ([id number]) [address] [facility], [address] [place], [place] [address]Yaogsgvpn (Bld) [#/Vol]264 10*3/tBXyqtbl303-035AuhZinbqi [facility] HospitalComment on above:Performed By: #### JAMES STARR, 1987-08, 17030-0 #### [facility] ([id number]) [address] [place] [address] 17874 #### 66087-1 #### [facility] ([id number]) [address] [place] [address], [address] [place], [place] [address]YUT COUNT4.07 X10E12/LLow4.10-5.70[facility] Comment on above:Performed By: #### JAMES STARR, 1987-08, 62539-2 #### [facility] ([id number]) [address] [place] [address] 75943 #### 47344-7 #### [facility] ([id number]) [address] [facility], [address] [place], [place] [address]ULQ (Bld) [#/Vol]9.4 10*3/uLNormal4.0-11.0ProSaint David'S Round Rock Medical CenterComment on above:Performed By: #### JAMES STARR, 1987-08, 89592-9 #### [facility] ([id number]) [address] [place] [address] 63009 #### 03183-0 #### [facility] ([id number]) [address] [place] [address], [address] [place], [place] [address]ZMQHVINKRDza 17-15-2949Lcjygunstz [Mass/Vol]3.14 mg/dLHigh 0.70-1.20ProSaint David'S Round Rock Medical CenterComment on above:Result Comment: METHOD TRACEABLE TO IDMS STANDARDPerformed By: #### UA #### [facility] ([id number]) [address] [place] [address] 92568YLL/1.73 sq M.predicted among non-blacks MDRD (S/P/Bld) [Vol rate/Area]21 mL/min/{1.73_m2}Low>59ProSaint David'S Round Rock Medical CenterComment on above: Result Comment: Reported eGFR is based on the CKD-EPI 2020 equation that does not use a race coefficient.Performed By: #### UA #### [facility] ([id number]) [address] [place] [address], [place] [address]QWMIQFBQZWBXrp 69-53-1824Jvkfz gap [Moles/Vol]8 mmol/LNormal 5-15ProSaint David'S Round Rock Medical CenterComment on above:Performed By: #### UA #### [facility] ([id number]) [address] [place] [address], [place] [address]Hzyyzonh [Moles/Vol]104 mmol/VSokogw23-781XcxRmclfwSaint David'S Round Rock Medical CenterComment on above:Performed By: #### UA #### [facility] ([id number]) [address] [place] [address], [place] [address]SW0 [Moles/Vol]19 mmol/JJaj12-00NqwEtvpqmTrumbull Memorial Hospital Comment on above:Performed By: #### UA #### [facility] ([id number]) [address] [place] [address] 47926Hlhplrllg [Moles/Vol]4.9 mmol/LNormal3.5-5.0Wilson HealthComment on above:Performed By: #### UA #### [facility] ([id number]) [address] [place] [address], [place] [address]Dznyfk [Moles/Vol]131 mmol/XInc552-869BtiIdnpbsSaint David'S Round Rock Medical CenterComment on above:Performed By: #### UA #### [facility] ([id number]) [address] [place] [address] 984[address]NYJ Photometric method (Bld) [Velocity]on 94-79-7984VLE, ERYTHROCYTE SEDIMENTATION RATE98 mm/hHigh0-20Wilson HealthComment on above:Performed By: #### UA #### [facility] ([id number]) [address] [place] [address] 97180FHX A1C (GLYCO-HGB)on 39-11-5443Candbjh [Mass/Vol]289 mg/dL NormalProSaint David'S Round Rock Medical CenterComment on above:Performed By: #### UA #### [facility] ([id number]) [address] [place] [address] 44299JcX2c (Bld) [Mass fraction]11.7 %High4.4-5.6Wilson HealthComment on above:Result Comment: NOTE ADA Guidelines Result HgbA1c Normal : less than 5.7 % Prediabetes : 5.7 % to 6.4 % Diabetes : > 6.4 % Use with caution in patients with abnormal hemoglobin variants as the half-life of red blood cells and in vivo glycation rates are affected.Performed By: #### UA #### [facility] ([id number]) [address] [place] [address] 99878PUTGF PANELon 52-19-0512Oypeuxa [Mass/Vol]2.9 g/dLLow3.2-5.3 ProMSharp [facility] Vista Medical CenterComment on above:Performed By: #### UA #### [facility] ([id number]) [address] [place] [address] 11814BHF [Catalytic activity/Vol]79 U/REhirwc27-110FgzWjtawnWilson HealthComment on above:Performed By: #### UA #### [facility] ([id number]) [address] [place] [address] 26973UYT [Catalytic activity/Vol]26 U/LNormal0-40ProSaint David'S Round Rock Medical CenterComment on above:Performed By: #### UA #### [facility] ([id number]) [address] [place] [address] 72167BMU [Catalytic activity/Vol]19 U/LNormal0-41ProSaint David'S Round Rock Medical CenterComment on above:Performed By: #### UA #### [facility] ([id number]) [address] [place] [address] 59505Gnonshxlo [Mass/Vol]0.5 mg/dLNormal0.3-1.2ProMedVan Ness campusComment on above:Performed By: #### UA #### [facility] ([id number]) [address] [place] [address] 833[address]Fvthuknih.indirect [Mass/Vol]mg/dLNormal0.0-0.4ProSaint David'S Round Rock Medical CenterComment on above:Performed By: #### UA #### [facility] ([id number]) [address] [place] [address] 14051Yrzazab [Mass/Vol]6.9 g/dLNormal6.0-8.0ProSaint David'S Round Rock Medical CenterComment on above:Performed By: #### UA #### [facility] ([id number]) [address] [place] [address] 72837Wopsq 1996 panelon 28-51-0181Ekhriaaqmqp [Mass/Vol]136 mg/dLLow 150-200ProSaint David'S Round [facility] Medical CenterComment on above:Performed By: #### UA #### [facility] ([id number]) [address] [place] [address] 544[address]Imhggrvgpet in HDL [Mass/Vol]40 mg/dLNormal>39Wilson HealthComment on above:Result Comment: HDL <40 mg/dL - High Risk HDL > or = 40mg/dL- Desirable HDL >60 mg/dL - Negative Risk Performed By: #### UA #### [facility] ([id number]) [address] [place] [address], [place] [address]Trpirfrcrxb in LDL [Mass/Vol]62 mg/dLNormal<130ProSaint David'S Round Rock Medical CenterComment on above:Result Comment: LDL <100 mg/dL - Desirable LDL >160 mg/dL - High Risk Performed By: #### UA #### [facility] ([id number]) [address] [place] [address] 54587Jxliovkpkeq in VLDL [Mass/Vol]34 mg/dLHigh0-30ProSaint David'S [facility] Medical CenterComment on above:Performed By: #### UA #### [facility] ([id number]) [address] [place] [address] 48866PQXWVYIBTQC:HDL3.0Vxrqip4.0-5.0[facility] Comment on above:Performed By: #### UA #### [facility] ([id number]) [address] [place] [address] 39572Kpiqnrfqqarp [Mass/Vol]172 mg/fHTqzw62-343IyxDqwktiSaint David'S Round Rock Medical CenterComment on above:Performed By: #### UA #### [facility] ([id number]) [address] [place] [address] 89026Eaqoidncewi peptide B [Mass/Vol]on 88-21-7608Rtinunwlhgy peptide B (Bld) [Mass/Vol]88 pg/mLNormal<100.0ProSaint David'S Round Rock Medical CenterComment on above:Performed By: #### UA #### [facility] ([id number]) [address] [place] [address], [place] [address]Bbelhdm D+Metabolites [Mass/Vol]on 50-48-6826QFQYXCA D 25 HYD TOT15.1 ng/mAChd05-999IvgNuxbkmSaint David'S Round Rock Medical CenterComment on above:Result Comment: Vitamin D status 25 [place] Vitamin D Deficiency <20 ng/mL Insufficiency 20-29 ng/mL Sufficiency 30-100 ng/mL Toxicity >100 ng/mL NOTE: A pediatric reference range has not been established by the ob/gyn nurse of this kit. The [employer] recommends a Vitamin D level of = or >20ng/mL in infants and children.Performed By: #### UA #### [facility] ([id number]) [address] [place] [address] 73916VXDJC UREA NITROGENon 97-34-2042Ahhj nitrogen [Mass/Vol]50 mg/dLHigh5-27ProSaint David'S [facility] Medical CenterComment on above:Performed By: #### MATTY CBCA, 1987-08, 35132-8 #### [facility] ([id number]) [address] [place] [address] 94310 #### 59896-5 #### [facility] ([id number]) [address] [facility], [address] [place], [place] [address]NAN AND AUTO DIFFon 63-70-2962YNBGLLLX BASOPHIL0.0 X10E9/LNormal 0.0-0.2Pro[facility] Rehabilitation HospitalComment on above:Performed By: #### MATTY, CBCA, 1987-08, 89908-1 #### [facility] ([id number]) [address] [place] [address] 50955 #### 23364-4 #### [facility] ([id number]) [address] [facility], [address] [place], [place] [address]DYDHFHHV NEUTROPHIL5.7 X10E9/LNormal1.5-6.6ProCincinnati Shriners Hospital HospitalComment on above:Performed By: #### MATTY, CBCA, 1987-08, 39635-1 #### [facility] ([id number]) [address] [place] [address] 97349 #### 08901-9 #### [facility] ([id number]) [address], [address] [place], [place] [address]Kyflblvie/100 WBC (Bld)0.4 %[facility] Comment on above:Performed By: #### MATTY CBCA, 1987-08, 45200-6 #### [facility] ([id number]) [address] [place] [address] 77303 #### 32169-0 #### [facility] ([id number]) [address] [place], [place] [address]Rwrwtdzqrrz (Bld) [#/Vol]0.4 10*3/uLNormal0.0-0.4Wilson HealthComment on above:Performed By: #### JAMES STARR, 1987-08, 34011-1 #### [facility] ([id number]) [address] [place] [address] 17491 #### 28849-9 #### [facility] ([id number]) [address] [place], [place] [address]Ucxokprvfuz/100 WBC (Bld)4.8 %[facility] Comment on above:Performed By: #### MATTY CBCA, 1987-08, 67092-8 #### [facility] ([id number]) [address] [place] [address] 48575 #### 40987-5 #### [facility] ([id number]) [address] [place], [place] [address]Yfkbtnmisix distribution width (RBC) [Ratio]14.7 %Normal 11.5-15.0Wilson HealthComment on above:Performed By: #### JAMES STARR, 1987-08, 59326-3 #### [facility] ([id number]) [address] [place] [address] #### 92870-1 #### [facility] ([id number]) [address] [facility], [address] [place], [place] [address]Xbrwclurmc (Bld) [Volume fraction]39.0 %Ggskbb43-43RriMydlobSaint David'S Round Rock Medical CenterComment on above:Performed By: #### JAMES STARR, 1987-08, #### [facility] ([id number]) [address] [place] [address] #### 50281-6 #### [facility] ([id number]) [address] [facility] [facility], [address] [place], [place] [address]Oudubhlcws (Bld) [Mass/Vol]13.3 g/rVOhegsh23.0-17.0ProSaint David'S Round Rock Medical CenterComment on above:Performed By: #### JAMES STARR, 1987-08, 74876-5 #### [facility] ([id number]) [address] [place] [address] #### 43509-0 #### [facility] ([id number]) [address] [facility], [address] [place], [place] [address]Yppoyqmjrxh (Bld) [#/Vol]1.7 10*3/uLNormal1.0-3.5PTrumbull Memorial HospitalComment on above:Performed By: #### JAMES STARR, 1987-08, 74931-2 #### [facility] ([id number]) [address] [place] [address] #### 40962-5 #### [facility] ([id number]) [address] [facility], [address] [place], [place] [address]Bxaezmhitvr/100 WBC (Bld)19.3 %NormalWilson Health Comment on above:Performed By: #### JAMES STARR, 1987-08, 53994-5 #### [facility] ([id number]) [address] [place] [address] #### 45283-0 #### [facility] ([id number]) [address] [facility], [address] [place], [place] [address]MKW (RBC) [Entitic mass]29.8 zxWxbgxy07-42VasQwhcwqSaint David'S Round Rock Medical CenterComment on above:Performed By: #### JAMES STARR, 1987-08, #### [facility] ([id number]) [address] [place] [address] #### 31602-9 #### [facility] ([id number]) [address] [facility], [address] [place], [place] [address]TNTX (RBC) [Mass/Vol]34.0 g/iYEbcfeq52-95HfpIeuuhiSaint David'S Round Rock Medical CenterComment on above:Performed By: #### JAMES STARR, 1987-08, #### [facility] ([id number]) [address] [place] [address] #### 22390-7 #### [facility] ([id number]) [address] [facility], [address] [place], [place] [address]WQJ (RBC) [Entitic vol]88 uYOaccnv85-213JwgXbqgbz Fremont HospitalComment on above:Performed By: #### JAMES STARR, 1987-08, #### [facility] ([id number]) [address] [place] [address] #### 15214-7 #### [facility] ([id number]) [address], [address] [place], [place] [address]Lrstbcgqe (Bld) [#/Vol]0.8 10*3/uLNormal0-0.9ProSaint David'S Round Rock Medical CenterComment on above:Performed By: #### MATTY, CBCA, 1987-08, #### [facility] ([id number]) [address] [place] [address] 33887 #### 38185-0 #### [facility] ([id number]) [address] [facility], [address] [place], [place] [address]Fyusexlab/100 WBC (Bld)8.8 %[facility] Comment on above:Performed By: #### SEVEN STARRA, 1987-08, #### [facility] ([id number]) [address] [place] [address] 25622 #### 38323-1 #### [facility] ([id number]) [address] [facility] [facility], [address] [place], [place] [address]Mujtvzakmad/100 WBC (Bld)66.7 %[facility] Comment on above:Performed By: #### MATTY CBCA, 1987-08, 76004-7 #### [facility] ([id number]) [address] [place] [address] 64263 #### 52994-4 #### [facility] ([id number]) [address] [facility], [address] [place], [place] [address]Rteuagrw mean volume (Bld) [Entitic vol]7.7 fLNormal7-12 [facility] HospitalComment on above:Performed By: #### MATTY, CBCA, 1987-08, #### [facility] ([id number]) [address] [place] [address] 94756 #### 29043-5 #### [facility] ([id number]) [address] [facility], [address] [place], [place] [address]Dkrmahzfs (Bld) [#/Vol]286 10*3/lDWiszko195-759IbyLpnufv [facility]ont HospitalComment on above:Performed By: #### JAMES STARR, 1987-08, 98210-0 #### [facility] ([id number]) [address] [place] [address] 56116 #### 51013-6 #### [facility] ([id number]) [address] [facility], [address] [place], [place] [address]IPL COUNT4.46 X10E12/LNormal4.10-5.70[facility] Comment on above:Performed By: #### JAMES STARR, 1987-08, 64468-5 #### [facility] ([id number]) [address] [place] [address] 56372 #### 58851-5 #### [facility] ([id number]) [address] [place] [address], [address] [place], [place] [address]BYV (Bld) [#/Vol]8.6 10*3/uLNormal4.0-11.0ProSaint David'S Round Rock Medical CenterComment on above:Performed By: #### JAMES STARR, 1987-08, 90420-5 #### [facility] ([id number]) [address] [place] [address] 93330 #### 96727-5 #### [facility] ([id number]) [address] [facility], [address] [place], [place] [address]KNMIKNARUKbf 55-07-3984Qoqkmiigzo [Mass/Vol]3.32 mg/dLHigh 0.70-1.20ProSaint David'S Round Rock Medical CenterComment on above:Result Comment: METHOD TRACEABLE TO IDMS STANDARDPerformed By: #### JAMES STARR, 1987-08, 99646-7 #### [facility] ([id number]) [address] [place] [address] 18276 #### 65607-5 #### [facility] ([id number]) [address] [facility], [address] [place], [place] [address]GLD/1.73 sq M.predicted among non-blacks MDRD (S/P/Bld) [Vol rate/Area]20 mL/min/{1.73_m2}Low>59ProSaint David'S Round Rock Medical CenterComment on above: Result Comment: Reported eGFR is based on the CKD-EPI 2020 equation that does not use a race coefficient.Performed By: #### JAMES STARR, 1987-08, 13596-5 #### [facility] ([id number]) [address] [place] [address] 36143 #### 21171-0 #### [facility] ([id number]) [address] [facility], [address] [place], [place] [address]PQZRHXVMSZIQqf 22-08-0564Comgb gap [Moles/Vol]8 mmol/LNormal5-15 [facility] HospitalComment on above:Performed By: #### JAMES STARR, 1987-08, 52742-7 #### [facility] ([id number]) [address] [place] [address] 86454 #### 90327-5 #### [facility] ([id number]) [address] [facility], [address] [place], [place] [address]Utiqzgtw [Moles/Vol]103 mmol/IAkikeh44-875DqdOqhoptSaint David'S Round Rock Medical CenterComment on above:Performed By: #### JAMES STARR, 1987-08, 84012-8 #### [facility] ([id number]) [address] [place] [address] 69591 #### 57709-1 #### [facility] ([id number]) [address], [address] [place], [place] [address]EZ3 [Moles/Vol]18 mmol/QWzj42-03LvyKspzhuTrumbull Memorial Hospital Comment on above:Performed By: #### JAMES STARR, 1987-08, 94893-3 #### [facility] ([id number]) [address] [place] [address] 58634 #### 85664-8 #### [facility] ([id number]) [address], [address] [place], [place] [address]Pyrsqryqr [Moles/Vol]4.5 mmol/LNormal3.5-5.0ProSaint David'S Round Rock Medical CenterComment on above:Performed By: #### JAMES STARR, 1987-08, 16870-6 #### [facility] ([id number]) [address] [place] [address] 03619 #### 55179-0 #### [facility] ([id number]) [address], [address] [place], [place] [address]Bdwspz [Moles/Vol]129 mmol/EKfx592-608IvaCyycpvWilson Health Comment on above:Performed By: #### JAMES STARR, 1987-08, 95750-5 #### [facility] ([id number]) [address] [place] [address] 07093 #### 97716-6 #### [facility] ([id number]) [address], [address] [place], [place] [address]XEGSK UREA NITROGENon 59-40-0674Lbgn nitrogen [Mass/Vol]41 mg/dL High5-27ProMercy Health St. Anne HospitalComment on above:Performed By: #### JAMES, 3094- 0, OVERSIZE LOAD PILOT ESCORT, ELEC #### [facility] ([id number]) [address], [address] [place], [place] [address]SXA AND AUTO DIFFon 87-21-5473BQRPCIIR BASOPHIL0.2 X10E9/LNormal 0.0-0.2PKettering Health Behavioral Medical CenterComment on above:Performed By: #### JAMES 3094- 0, OVERSIZE LOAD PILOT ESCORT, ELEC #### [facility] ([id number]) [address], [address] [place], [place] [address]Lozsthped/100 WBC (Bld)1.9 %NormalGlenbeigh Hospital Comment on above:Performed By: #### JAMES 309-0, OVERSIZE LOAD PILOT ESCORT, ELEC #### [facility] ([id number]) [address], [address] [place], [place] [address]HYOU3+AbnormalNONEPKettering Health Behavioral Medical CenterComment on above: Performed By: #### JAMES 309-0, OVERSIZE LOAD PILOT ESCORT, ELEC #### [facility] ([id number]) [address], [address] [place], [place] [address]Qmczpcfroiz (Bld) [#/Vol]0.4 10*3/uLNormal0.0-0.4ProMercy Health St. Anne HospitalComment on above:Performed By: #### JAMES 309-0, OVERSIZE LOAD PILOT ESCORT, ELEC #### [facility] ([id number]) [address], [address] [place], [place] [address]Cdorfxxjpqx/100 WBC (Bld)3.8 %NormalGlenbeigh Hospital Comment on above:Performed By: #### JAMES 309-0, OVERSIZE LOAD PILOT ESCORT, ELEC #### [facility] ([id number]) [address], [address] [place], [place] [address]Xmwmlgsxjtl distribution width (RBC) [Ratio]14.4 %Normal 11.5-15.0ProMercy Health St. Anne HospitalComment on above:Performed By: #### JAMES, 3094-0, OVERSIZE LOAD PILOT ESCORT, ELEC #### [facility] ([id number]) [address], [address] [place], [place] [address]Kkluxqiknu (Bld) [Volume fraction]40.3 %Kptprv78-84VknUahfdt Nichols HospitalComment on above:Performed By: #### CBCA, 3094-0, OVERSIZE LOAD PILOT ESCORT, ELEC #### [facility] ([id number]) [address], [address] [place], [place] [address]Tthsppmgmq (Bld) [Mass/Vol]13.4 g/pTGwhipm15.0-17.0ProCleveland Clinic Children'S Hospital For Rehabilitationca Nichols HospitalComment on above:Performed By: #### CBCA, 3094-0, OVERSIZE LOAD PILOT ESCORT, ELEC #### [facility] ([id number]) [address], [facility] [address] [place], [place] [address]Fcstdjwcmdg (Bld) [#/Vol]2.0 10*3/uLNormal1.0-3.5Pro[facility] Nichols HospitalComment on above:Performed By: #### CBCA, 3094-0, OVERSIZE LOAD PILOT ESCORT, ELEC #### [facility] ([id number]) [address], [address] [place], [place] [address]Zwaxkzcismh/100 WBC (Bld)21.7 %NormalProOhio Valley Surgical Hospital Hospital Comment on above:Performed By: #### CBCA, 3094-0, OVERSIZE LOAD PILOT ESCORT, ELEC #### [facility] ([id number]) [address], [facility] [address] [place], [place] [address]VXP (RBC) [Entitic mass]29.6 dwHpffjg23-06EeyIrsrvf [place] HospitalComment on above:Performed By: #### CBCA, 3094-0, OVERSIZE LOAD PILOT ESCORT, ELEC #### [facility] ([id number]) [address], [address] [place], [place] [address]CQKD (RBC) [Mass/Vol]33.4 g/kLPfhwwt47-99WuyKvwylo [place] HospitalComment on above:Performed By: #### CBCA, 3094-0, OVERSIZE LOAD PILOT ESCORT, ELEC #### [facility] ([id number]) [address], [address] [place], [place] [address]UIO (RBC) [Entitic vol]89 dCKaxzsn65-643IfvMnmtht Nichols HospitalComment on above:Performed By: #### JAMES, 3094-0, OVERSIZE LOAD PILOT ESCORT, ELEC #### [facility] ([id number]) [address], [address] [place], [place] [address]Uwqvxaonf (Bld) [#/Vol]0.6 10*3/uLNormal0-0.9ProMedica Nichols HospitalComment on above:Performed By: #### JAMES, 3094-0, OVERSIZE LOAD PILOT ESCORT, ELEC #### [facility] ([id number]) [address], [address] [place], [place] [address]Zehfvmcad/100 WBC (Bld)6.6 %NormalProOhio Valley Surgical Hospital Hospital Comment on above:Performed By: #### JAMES, 3094-0, OVERSIZE LOAD PILOT ESCORT, ELEC #### [facility] ([id number]) [address], [address] [place], [place] [address]Tfgvnuencvk (Bld) [#/Vol]6.1 10*3/uLNormal1.5-6.6ProCleveland Clinic Children'S Hospital For Rehabilitationca Nichols HospitalComment on above:Performed By: #### JAMES, 3094-0, OVERSIZE LOAD PILOT ESCORT, ELEC #### [facility] ([id number]) [address], [address] [place], [place] [address]Flkwehic mean volume (Bld) [Entitic vol]8.0 fLNormal7-12 [facility] HospitalComment on above:Performed By: #### CBCJarrett, 3094-0, OVERSIZE LOAD PILOT ESCORT, ELEC #### [facility] ([id number]) [address], [address] [place], [place] [address]Uljiqshiu (Bld) [#/Vol]253 10*3/kGDjmhvj835-982VvaCyueiz Nichols HospitalComment on above:Performed By: #### CBCJarrett, 3094-0, OVERSIZE LOAD PILOT ESCORT, ELEC #### [facility] ([id number]) [address] [address] [place] [address]CBZ COUNT4.54 X10E12/LNormal4.10-5.70[facility] Comment on above:Performed By: #### JAMES, 3094-0, OVERSIZE LOAD PILOT ESCORT, ELEC #### [facility] ([id number]) [address] [address] WQZNKGROSR99.0 %NormalProOhio Valley Surgical Hospital HospitalComment on above:Performed By: #### JAMES, 3094-0, OVERSIZE LOAD PILOT ESCORT, ELEC #### [facility] ([id number]) [address] [address]WVR (Bld) [#/Vol]9.3 10*3/uLNormal4.0-11.0ProMercy Health St. Anne HospitalComment on above:Performed By: #### JAMES, 3094-0, OVERSIZE LOAD PILOT ESCORT, ELEC #### [facility] ([id number]) [address] [address]ZPRMLITANFmf 07-99-4345Akuwjhxrze [Mass/Vol]3.18 mg/dLHigh 0.60-1.30Glenbeigh HospitalComment on above:Result Comment: METHOD TRACEABLE TO IDMS STANDARDPerformed By: #### JAMES, 3094-0, OVERSIZE LOAD PILOT ESCORT, ELEC #### [facility] ([id number]) [address] [address]YXY/1.73 sq M.predicted among non-blacks MDRD (S/P/Bld) [Vol rate/Area]21 mL/min/{1.73_m2}Low>59ProMercy Health St. Anne HospitalComment on above: Result Comment: Reported eGFR is based on the CKD-EPI 2020 equation that does not use a race coefficient.Performed By: #### JAMES, 3094-0, OVERSIZE LOAD PILOT ESCORT, ELEC #### [facility] ([id number]) [address] [facility] [address] [place], [place] [address]KCGPPPLBTBMHuz 01-87-7679Ooxgd gap [Moles/Vol]9 mmol/LNormal5-15 [facility] HospitalComment on above:Performed By: #### JAMES, 3094-0, OVERSIZE LOAD PILOT ESCORT, ELEC #### [facility] ([id number]) [address], [address] [place], [place] [address]Xuvtkrtg [Moles/Vol]100 mmol/IMgxpng37-141GhgZyefuo Nichols HospitalComment on above:Performed By: #### JAMES, 3094-0, OVERSIZE LOAD PILOT ESCORT, ELEC #### [facility] ([id number]) [address], [address] [place], [place] [address]HK0 [Moles/Vol]22 mmol/GIjiggl17-58JxxDxhzzk [facility] Comment on above:Performed By: #### JAMES, 3094-0, OVERSIZE LOAD PILOT ESCORT, ELEC #### [facility] ([id number]) [address], [address] [place], [place] [address]Unhwfgsgy [Moles/Vol]3.9 mmol/LNormal3.5-5.0ProMercy Health St. Anne HospitalComment on above:Performed By: #### JAMES, 3094-0, OVERSIZE LOAD PILOT ESCORT, ELEC #### [facility] ([id number]) [address], [address] [place], [place] [address]Zhreww [Moles/Vol]131 mmol/SVmz785-179LldQhrupmMercy Health St. [facility] Comment on above:Performed By: #### JAMES, 3094-0, OVERSIZE LOAD PILOT ESCORT, ELEC #### [facility] ([id number]) [address], [address] [place], [place] [address]GR VENOUS DOPPLER LE LTon 93-43-2116Z[address] [address] Ultrasound Report Signed Patient: RASHARD LYMAN MR#: [id number] : 1960 Acct:[id number] Age/Sex: 63 / M ADM Date: 11/19/23 Loc: US Attending Dr: Ajay Archer M.D. Ordering Physician: Ajay Archer M.D. Date of Service: 11/19/23 Procedure(s): US venous doppler LE LT Accession Number(s): [id number] cc: Chino Elliott D.P.M.; Ajay Archer M.D. The [place] [id number] Patient Name: RASHARD LYMAN MRN: [id number] date: 1960 Sex: M Assigned Patient Location: US Current Patient Location: US Accession/Order Number: [id number] Exam Date: 11/19/2023 16:06 Report Date: 11/19/2023 [...] M.D. Signed By: 11/19/231726 DD/ 23 TD/TT: Supervisor [employer]:PEPEadiology, Radiologist, - 11/19/[address] [address] Ultrasound Report Signed Patient: RASHARD LYMAN MR#: [id number] : 1960 Acct:[id number] Age/Sex: 63 / M ADM Date: 11/19/23 Loc: US Attending Dr: Ajay Archer M.D. Ordering Physician: Ajay Archer M.D. Date of Service: 11/19/23 Procedure(s): US venous doppler LE LT Accession Number(s): [id number] cc: Chino Elliott D.P.M.; Ajay Archer M.D. [place] [id number] Patient Name: RASHARD LYMAN MRN: [id number] date: 1960 Sex: M Assigned Patient Location: US Current Patient Location: US Accession/Order Number: [id number] Exam Date: 11/19/2023 16:06 Report Date: 11/19/2023 [...] M.D. Signed By: 11/19/231726 DD/ 23 TD/TT: Supervisor [employer]: HERNANDEZ HealthcareRadiology Study observation (narrative)[facility] VENOUS DOPPLER LE LTOrdered By: Radiologist Radiology on 40-64-3796PDJM[address] [place] [address] Work Phone: bLOOD UREA NITROGENon 73-34-1046Ssyn nitrogen [Mass/Vol]35 mg/dLHigh5-27ProSaint David'S Round Rock Medical CenterComment on above:Performed By: #### JAMES STARR, 1987-08, 84042-9 #### [facility] ([id number]) [address] [place] [address] 33324 #### 70966-2 #### [facility] ([id number]) [address], [address] [place], [place] [address]ATUFWOIdc 94-97-1712Aowmzgf [Mass/Vol]8.1 mg/dLLow8.5-10.5 ProMSharp [facility] Vista Medical CenterComment on above:Performed By: #### JAMES STARR, 1987-08, 61089-1 #### [facility] ([id number]) [address] [place] [address] 29492 #### 96176-3 #### [facility] ([id number]) [address] [facility] [place], [place] [address]RMD AND AUTO DIFFon 60-21-5386HRJTRPLK BASOPHIL0.0 X10E9/LNormal 0.0-0.2Pro[facility] Rehabilitation HospitalComment on above:Performed By: #### JAMES STARR, 1987-08, 93081-1 #### [facility] ([id number]) [address] [place] [address] 47576 #### 83392-1 #### [facility] ([id number]) [address] [facility], [address] [place], [place] [address]UACAZMDL NEUTROPHIL5.4 X10E9/LNormal1.5-6.6ProSaint David'S Round Rock Medical CenterComment on above:Performed By: #### JAMES STARR, 1987-08, 47974-4 #### [facility] ([id number]) [address] [place] [address] [place] [address] #### 21688-0 #### [facility] ([id number]) [facility] [facility], [address] [place], [place] [address]Vrdainreh/100 WBC (Bld)0.5 %[facility] Comment on above:Performed By: #### JAMES STARR, 1987-08, 29143-6 #### [facility] ([id number]) [address] [place] [address] 31900 #### 57927-3 #### [facility] ([id number]) [address] [place] [address], [address] [place], [place] [address]Ivoudsnykgn (Bld) [#/Vol]0.3 10*3/uLNormal0.0-0.4ProSaint David'S Round Rock Medical CenterComment on above:Performed By: #### JAMES STARR, 1987-08, 07998-4 #### [facility] ([id number]) [address] [place] [address] 18255 #### 11983-3 #### [facility] ([id number]) [address] [place] [address], [address] [place], [place] [address]Ykuneefwcao/100 WBC (Bld)3.2 %NormalWilson Health Comment on above:Performed By: #### JAMES STARR, 1987-08, 10126-2 #### [facility] ([id number]) [address] [place] [address] 08760 #### 74476-8 #### [facility] ([id number]) [address] [place] [address], [address] [place], [place] [address]Vqylliwjale distribution width (RBC) [Ratio]14.4 %Normal 11.5-15.0ProSaint David'S Round Rock Medical CenterComment on above:Performed By: #### JAMES STARR, 1987-08, 62868-5 #### [facility] ([id number]) [address] [place] [address] 09095 #### 89320-4 #### [facility] ([id number]) [address], [address] [place], [place] [address]Eqevsyhabo (Bld) [Volume fraction]39.7 %Xkadrl79-40AsfTcxnfiSaint David'S Round Rock Medical CenterComment on above:Performed By: #### MATTY CBCA, 1987-08, 84216-2 #### [facility] ([id number]) [address] [place] [address] 26373 #### 83168-8 #### [facility] ([id number]) [address], [address] [place], [place] [address]Dftdeypyfp (Bld) [Mass/Vol]13.1 g/hIYbkzsh52.0-17.0ProSaint David'S Round Rock Medical CenterComment on above:Performed By: #### MATTY, CBCA, 1987-08, 14321-8 #### [facility] ([id number]) [address] [place] [address] 69728 #### 97882-9 #### [facility] ([id number]) [address], [address] [place], [place] [address]Eyjqfpcufpo (Bld) [#/Vol]2.1 10*3/uLNormal1.0-3.5ProMedica [facility]ust[facility] Rehabilitation HospitalComment on above:Performed By: #### MATTY, CBCA, 1987-08, 03536-1 #### [facility] ([id number]) [address] [place] [address] 74526 #### 98284-0 #### [facility] ([id number]) [address] [place], [place] [address]Fhjfojcccvs/100 WBC (Bld)24.5 %NormalProSaint David'S [facility] Center Comment on above:Performed By: #### MATTY, CBCA, 1987-08, #### [facility] ([id number]) [address] [place] [address]758 #### 66495-5 #### [facility] ([id number]) [address] [place], [place] [address]FEZ (RBC) [Entitic mass]29.0 rnNbqdej91-51GppXjzrzxSaint David'S Round Rock Medical CenterComment on above:Performed By: #### MATTY, CBCA, 1987-08, #### [facility] ([id number]) [address] [place] [address] 359[address] #### 54460-3 #### [facility] ([id number]) [address], [address] [place], [place] [address]WBUA (RBC) [Mass/Vol]32.9 g/tTGsaykx80-99IxuXhcqqvSaint David'S Round Rock Medical CenterComment on above:Performed By: #### JAMES STARR, 1987-08, #### [facility] ([id number]) [address] [place] [address] #### 05127-3 #### [facility] ([id number]) [address] [place], [place] [address]EQG (RBC) [Entitic vol]88 wLNtwwzh24-340UziBdbjgr [facility]ont HospitalComment on above:Performed By: #### MATTY, CBCA, 1987-08, #### [facility] ([id number]) [address] [place] [address] 26709 #### 50201-8 #### [facility] ([id number]) [address] [place], [place] [address]Uhhgrryir (Bld) [#/Vol]0.8 10*3/uLNormal0-0.9ProSoutheast Health Medical Center Willow Springs HospitalComment on above:Performed By: #### BMP, CBCA, 1987-08, 07021-1 #### [facility] ([id number]) [address] [place] [address]1990 #### 94565-9 #### [facility] ([id number]) [address], [address] [place], [place] [address]Ykouuiznl/100 WBC (Bld)9.2 %[facility] Comment on above:Performed By: #### MATTY, CBCA, 1987-08, 92005-8 #### [facility] ([id number]) [address] [place] [address] #### 79668-4 #### [facility] ([id number]) [address] [facility] [facility] [place], [place] [address]Atekfdyflfc/100 WBC (Bld)62.6 %[facility] Comment on above:Performed By: #### BMP, CBCA, 1987-08, 26354-9 #### [facility] ([id number]) [address] [place] [address]86[address] #### 38497-1 #### [facility] ([id number]) [address] [place], [place] [address]Czspqajo mean volume (Bld) [Entitic vol]8.6 fLNormal7-12 Pro[facility] Rehabilitation HospitalComment on above:Performed By: #### BMP, CBCA, 1987-08, 67231-3 #### [facility] ([id number]) [address] [place] [address] #### 75665-9 #### [facility] ([id number]) [address] [place], [place] [address]Ecghyhyim (Bld) [#/Vol]247 10*3/yFSqkmpq596-907AtcOxacvn [facility]remont HospitalComment on above:Performed By: #### JAMES STARR, 1987-08, 56405-5 #### [facility] ([id number]) [address] [place] [address] #### 06866-8 #### [facility] ([id number]) [address] [place] [address], [address] [place], [place] [address]UYJ COUNT4.51 X10E12/LNormal4.10-5.70[facility] Comment on above:Performed By: #### JAMES STARR, 1987-08, #### [facility] ([id number]) [address] [place] [address] #### 66787-4 #### [facility] ([id number]) [address] [place] [address], [address] [place], [place] [address]VUO (Bld) [#/Vol]8.5 10*3/uLNormal4.0-11.0ProSaint [facility] Round [facility] Medical CenterComment on above:Performed By: #### JAMES STARR, 1987-08, 53086-6 #### [facility] ([id number]) [address] [place] [address] #### 48181-6 #### [facility] ([id number]) [address] [place] [address], [address] [place], [place] [address]WLKUDGBNJJht 22-57-4408Nevbbnpmiu [Mass/Vol]2.69 mg/dLHigh 0.70-1.20ProSaint David'S Round Rock Medical CenterComment on above:Result Comment: METHOD TRACEABLE TO IDMS STANDARDPerformed By: #### JAMES STARR, 1987-08, 12906-1 #### [facility] ([id number]) [address] [place] [address] #### 74011-4 #### [facility] ([id number]) [address], [address] [place], [place] [address]QQT/1.73 sq M.predicted among non-blacks MDRD (S/P/Bld) [Vol rate/Area]26 mL/min/{1.73_m2}Low>59[facility] HospitalComment on above: Result Comment: Reported eGFR is based on the CKD-EPI 2020 equation that does not use a race coefficient.Performed By: #### JAMES STARR, 1987-08, 18081-6 #### [facility] ([id number]) [address] [place] [address] #### 94604-4 #### [facility] ([id number]) [address], [address] [place], [place] [address]Vidfucd.ionized (Bld) [Moles/Vol]on 30-06-1792NTSVNZLL ICA4.8 mg/dLNormal4.5-5.3[facility] HospitalComment on above:Performed By: #### JAMES STARR, 1987-08, 60078-7 #### [facility] ([id number]) [address] [place] [address] #### 56762-7 #### [facility] ([id number]) [address], [address] [place], [place] [address]QHWZRKBUWNPMfa 38-96-3251Belqy gap [Moles/Vol]5 mmol/LNormal5-15 [facility] HospitalComment on above:Performed By: #### JAMES STARR, 1987-08, 66128-9 #### [facility] ([id number]) [address] [place] [address] #### 67368-3 #### [facility] ([id number]) [address], [address] [place], [place] [address]Llsouyau [Moles/Vol]108 mmol/LWqlbha64-721WrdVpfefjSaint David'S Round Rock Medical CenterComment on above:Performed By: #### JAMES STARR, 1987-08, 96328-2 #### [facility] ([id number]) [address] [place] [address] #### 78870-2 #### [facility] ([id number]) [address], [address] [place], [place] [address]HH7 [Moles/Vol]18 mmol/OOjl39-51ZaxZctstsTrumbull Memorial Hospital Comment on above:Performed By: #### JAMES STARR, 1987-08, 24957-7 #### [facility] ([id number]) [address] [place] [address] 02497 #### 46901-5 #### [facility] ([id number]) [address] [place], [place] [address]Jdccsfwii [Moles/Vol]4.1 mmol/LNormal3.5-5.0ProSaint David'S Round Rock Medical CenterComment on above:Performed By: #### JAMES STARR, 1987-08, 28719-5 #### [facility] ([id number]) [address] [place] [address] 39220 #### 61279-0 #### [facility] ([id number]) [address] [place], [place] [address]Iiraim [Moles/Vol]131 mmol/XPoe211-936WcpVuawobWilson Health Comment on above:Performed By: #### JAMES STARR, 1987-08, 59019-0 #### [facility] ([id number]) [address] [place] [address] 73249 #### 42498-0 #### [facility] ([id number]) [address], [address] [place], [place] [address]AVK Photometric method (Bld) [Velocity]on 96-95-2004DOW, ERYTHROCYTE SEDIMENTATION RATE89 mm/hHigh0-20ProSaint David'S Round Rock Medical CenterComment on above:Performed By: #### JAMES STARR, 1987-08, 67544-8 #### [facility] ([id number]) [address] [place] [address] 91979 #### 88603-0 #### [facility] ([id number]) [address], [address] [place], [place] [address]RKA A1C (GLYCO-HGB)on 76-76-7751Uqkwdfg [Mass/Vol]235 mg/dL NormalProSaint David'S Round Rock Medical CenterComment on above:Performed By: #### JAMES STARR, 1987-08, 78275-4 #### [facility] ([id number]) [address] [place] [address] 48222 #### 48950-8 #### [facility] ([id number]) [address], [address] [place], [place] [address]JoZ1b (Bld) [Mass fraction]9.8 %High4.4-5.6ProSaint David'S Round Rock Medical CenterComment on above:Result Comment: NOTE ADA Guidelines Result HgbA1c Normal : less than 5.7 % Prediabetes : 5.7 % to 6.4 % Diabetes : > 6.4 % Use with caution in patients with abnormal hemoglobin variants as the half-life of red blood cells and in vivo glycation rates are affected.Performed By: #### JAMES STARR, 1987-08, 57489-6 #### [facility] ([id number]) [address] [place] [address] 24233 #### 50096-7 #### [facility] ([id number]) [address], [address] [place], [place] [address]GSLOV PANELon 69-09-3006Mivuskf [Mass/Vol]2.8 g/dLLow3.2-5.3 [facility] Rehabilitation HospitalComment on above:Performed By: #### JAMES STARR, 1987-08, 07446-3 #### [facility] ([id number]) [address] [place] [address] 18412 #### 70483-7 #### [facility] ([id number]) [address] [facility], [address] [place], [place] [address]EPI [Catalytic activity/Vol]86 U/JGmnbzn67-948UqkMkhjtaSaint David'S Round Rock Medical CenterComment on above:Performed By: #### JAMES STARR, 1987-08, 81798-7 #### [facility] ([id number]) [address] [place] [address] 32835 #### 23024-4 #### [facility] ([id number]) [address] [facility], [address] [place], [place] [address]DXI [Catalytic activity/Vol]19 U/LNormal0-40ProSaint David'S Round Rock Medical CenterComment on above:Performed By: #### JAMES STARR, 1987-08, 96420-7 #### [facility] ([id number]) [address] [place] [address] 33394 #### 36215-6 #### [facility] ([id number]) [address] [facility], [address] [place], [place] [address]QOB [Catalytic activity/Vol]15 U/LNormal0-41ProSaint David'S Round Rock Medical CenterComment on above:Performed By: #### JAMES STARR, 1987-08, 59607-4 #### [facility] ([id number]) [address] [place] [address] 10580 #### 53622-0 #### [facility] ([id number]) [address] [facility], [address] [place], [place] [address]Mxlspiyur [Mass/Vol]0.5 mg/dLNormal0.3-1.2ProMedVan Ness campusComment on above:Performed By: #### JAMES STARR, 1987-08, 32781-6 #### [facility] ([id number]) [address] [place] [address] 45449 #### 49105-5 #### [facility] ([id number]) [address] [place] [address], [address] [place], [place] [address]Vbncwjiru.indirect [Mass/Vol]mg/dLNormal0.0-0.4ProSaint David'S Round Rock Medical CenterComment on above:Performed By: #### JAMES STARR, 1987-08, 84113-1 #### [facility] ([id number]) [address] [place] [address] 88102 #### 61303-7 #### [facility] ([id number]) [address] [place] [address], [address] [place], [place] [address]Ccgpqwr [Mass/Vol]6.4 g/dLNormal6.0-8.0ProSaint David'S Round Rock Medical CenterComment on above:Performed By: #### JAMES STARR, 1987-08, 66626-6 #### [facility] ([id number]) [address] [place] [address] 27834 #### 84471-9 #### [facility] ([id number]) [address] [place] [address], [address] [place], [place] [address]Lpgdp 1996 panelon 56-51-6580Ryonaiuhrhe [Mass/Vol]135 mg/dLLow 150-200ProSaint David'S Round Rock Medical CenterComment on above:Performed By: #### JAMES STARR, 1987-08, 85807-7 #### [facility] ([id number]) [address] [place] [address] 95815 #### 19413-3 #### [facility] ([id number]) [address] [facility], [address] [place], [place] [address]Vhxsqlnqbfq in HDL [Mass/Vol]40 mg/dLNormal>39ProSaint David'S Round Rock Medical CenterComment on above:Result Comment: HDL <40 mg/dL - High Risk HDL > or = 40mg/dL- Desirable HDL >60 mg/dL - Negative Risk Performed By: #### JAMES STARR, , 45147-9 #### [facility] ([id number]) [address] [place] [address] 54211 #### 30783-0 #### [facility] ([id number]) [address] [facility], [address] [place], [place] [address]Aqthphnfdvh in LDL [Mass/Vol]57 mg/dLNormal<130ProSaint David'S Round Rock Medical CenterComment on above:Result Comment: LDL <100 mg/dL - Desirable LDL >160 mg/dL - High Risk Performed By: #### JAMES STARR, , 11532-7 #### [facility] ([id number]) [address] [place] [address] 01478 #### 42061-2 #### [facility] ([id number]) [address] [facility], [address] [place], [place] [address]Xzqgmvaadtl in VLDL [Mass/Vol]38 mg/dLHigh0-30ProSaint David'S Round Rock Medical CenterComment on above:Performed By: #### JAMES STARR, 1987-08, 40969-2 #### [facility] ([id number]) [address] [place] [address] 72943 #### 56816-5 #### [facility] ([id number]) [address] [facility], [address] [place], [place] [address]KEEOQCGPICT:HDL3.6Byjrwp1.0-5.0Wilson HealthComment on above:Performed By: #### JAMES STARR, 1987-08, 86812-4 #### [facility] ([id number]) [address] [place] [address] 97319 #### 03801-4 #### [facility] ([id number]) [address] [place] [address], [address] [place], [place] [address]Xchxnngynmex [Mass/Vol]192 mg/jRApoe46-103ArcLbtlwlSaint David'S Round Rock Medical CenterComment on above:Performed By: #### JAMES STARR, 1987-08, 95998-7 #### [facility] ([id number]) [address] [place] [address] 96367 #### 56427-0 #### [facility] ([id number]) [address] [place] [address], [address] [place] [address]XBSUVRDAFtc 16-57-1630Zyzijghmj [Mass/Vol]2.1 mg/dLNormal1.8-2.6 [facility] Rehabilitation HospitalComment on above:Performed By: #### JAMES STARR, 1987-08, 26863-8 #### [facility] ([id number]) [address] [place] [address] 33580 #### 12824-3 #### [facility] ([id number]) [address] [place] [address], [address] [place] [address]Sqafvhhospc peptide.B prohormone N-Terminal IA [Mass/Vol]on 58-88-0182Rvhzadoagdy peptide B (Bld) [Mass/Vol]1528 pg/mLHigh<=88ProSaint David'S Round Rock Medical CenterComment on above:Result Comment: NOTE NT-proBNP values less [...] absence of renal failure. Test Performed by: [facility] [place] [address] Manager Of Medical: Brittani Nieves Ph.D.; CLIA# [id number] By: #### MATTY CBCA, 1987-08, 31126-4 #### [facility] ([id number]) [address] [place] [address] 47190 #### 53274-9 #### [facility] ([id number]) [address] [place] [address], [address] [place], [place] [address]Dymnkoyw specific Ag [Mass/Vol]on 53-84-6024QTL SCREEN1.65 ng/mL Normal0.00-4.00ProSaint David'S Round Rock Medical CenterComment on above:Result Comment: The method used for this test is Rufus Rommel DXI chemiluminescent immunoassay. Values obtained by different assay methods cannot be used interchangeably.Performed By: #### MATTY, CBCA, 1987-08, 66460-9 #### [facility] ([id number]) [address] [place] [address] 82697 #### 55670-4 #### [facility] ([id number]) [address] [facility], [address] [place], [place] [address]Cgzdyow D+Metabolites [Mass/Vol]on 75-12-2823LDWSHGX D 25 HYD TOT8.3 ng/tYCrb93-898WbxJypboySaint David'S Round Rock Medical CenterComment on above:Result Comment: Vitamin D status 25 [place] Vitamin D Deficiency <20 ng/mL Insufficiency 20-29 ng/mL Sufficiency 30-100 ng/mL Toxicity >100 ng/mL NOTE: A pediatric reference range has not been established by the ob/gyn nurse of this kit. The [employer] recommends a Vitamin D level of = or >20ng/mL in infants and children.Performed By: #### JAMES STARR, 1987-08, 43773-1 #### [facility] ([id number]) [address] [place] [address] 53435 #### 14436-8 #### [facility] ([id number]) [address], [address] [place], [place] [address]TULKH UREA NITROGENon 70-78-1615Ujqf nitrogen [Mass/Vol]33 mg/dL High5-27ProSaint David'S Round Rock Medical CenterComment on above:Performed By: #### JAMES STARR, 1987-08, 31615-5 #### [facility] ([id number]) [address] [place] [address] 01117 #### 12922-2 #### [facility] ([id number]) [address], [address] [place], [place] [address]ZLNNCAOXNSyr 00-37-2687Pceripwuvc [Mass/Vol]2.42 mg/dLHigh 0.70-1.20ProSaint David'S Round Rock Medical CenterComment on above:Result Comment: METHOD TRACEABLE TO IDCO STANDARDPerformed By: #### JAMES STARR, 1987-08, 16946-4 #### [facility] ([id number]) [address] [place] [address] 31908 #### 96367-2 #### [facility] ([id number]) [address], [address] [place], [place] [address]ZYP/1.73 sq M.predicted among non-blacks MDRD (S/P/Bld) [Vol rate/Area]29 mL/min/{1.73_m2}Low>59ProSaint David'S Round Rock Medical CenterComment on above: Result Comment: Reported eGFR is based on the CKD-EPI 2020 equation that does not use a race coefficient.Performed By: #### JAMES STARR, 1987-08, 95177-8 #### [facility] ([id number]) [address] [place] [address] 62211 #### 37868-2 #### [facility] ([id number]) [address], [address] [place], [place] [address]KCQRSOFCEXYHug 11-55-7979Lpzuu gap [Moles/Vol]7 mmol/LNormal5-15 [facility] Rehabilitation HospitalComment on above:Performed By: #### JAMES STARR, 1987-08, 68925-5 #### [facility] ([id number]) [address] [place] [address] 92308 #### 18328-1 #### [facility] ([id number]) [address], [address] [place], [place] [address]Usosxopi [Moles/Vol]106 mmol/NDzndtx05-785FraJrgbyk [facility] Rehabilitation HospitalComment on above:Performed By: #### JAMES STARR, 1987-08, 70627-0 #### [facility] ([id number]) [address] [place] [address] 61377 #### 13132-3 #### [facility] ([id number]) [address], [address] [place], [place] [address]VC0 [Moles/Vol]21 mmol/SSvu85-41ZccOejykl [facility] Comment on above:Performed By: #### JAMES STARR, 1987-08, 67855-3 #### [facility] ([id number]) [address] [place] [address] 21881 #### 81521-0 #### [facility] ([id number]) [address], [address] [place], [place] [address]Sbomvbbhi [Moles/Vol]4.2 mmol/LNormal3.5-5.0ProSaint David'S Round [facility] Medical CenterComment on above:Performed By: #### JAMES STARR, 1987-08, 17905-2 #### [facility] ([id number]) [address] [place] [address] 95542 #### 31733-7 #### [facility] ([id number]) [address] [place] [address], [address] [place], [place] [address]Ljynsx [Moles/Vol]134 mmol/DVbpalt268-801AlhIcsaba Fremont HospitalComment on above:Performed By: #### JAMES STARR, 1987-08, 87223-3 #### [facility] ([id number]) [address] [place] [address] 65016 #### 91431-9 #### [facility] ([id number]) [address] [place] [address], [address] [place], [place] [address]Nztnoqmevjb peptide.B prohormone N-Terminal [Mass/Vol]on 14-41-1794MF Pro BNPSee BelowNormalProSaint David'S Round Rock Medical CenterComment on above: Result Comment: NOTE TEST RESULT FLAG UNIT REF.RANGE PRO B Natr Peptide 933 H pg/mL <125 Test Performed By: [facility] Recorded Future [address] [place] [address] Storage Receipt Poster: Charlotte Hart III #[id number] By: #### JAMES STARR, 1987-08, 88849-8 #### [facility] ([id number]) [address] [place] [address] 15080 #### 06051-5 #### [facility] ([id number]) [address], [address] [place], [place] [address]LLVIL UREA NITROGENon 66-10-0180Nuwj nitrogen [Mass/Vol]38 mg/dL High5-27ProSaint David'S Round Rock Medical CenterComment on above:Performed By: #### JAMES STARR, 1987-08, 59167-6 #### [facility] ([id number]) [address] [place] [address] 60236 #### 90519-2 #### [facility] ([id number]) [address] [facility], [address] [place], [place] [address]CQRKIATAOBep 66-03-7449Dcfrdtdvat [Mass/Vol]2.76 mg/dLHigh 0.70-1.20ProSaint David'S Round Rock Medical CenterComment on above:Result Comment: METHOD TRACEABLE TO IDMS STANDARDPerformed By: #### JAMES STARR, 1987-08, 16799-0 #### [facility] ([id number]) [address] [place] [address] 66575 #### 69076-6 #### [facility] ([id number]) [address] [facility], [address] [place], [place] [address]TUM/1.73 sq M.predicted among non-blacks MDRD (S/P/Bld) [Vol rate/Area]25 mL/min/{1.73_m2}Low>59ProSaint David'S [facility] Medical CenterComment on above: Result Comment: Reported eGFR is based on the CKD-EPI 2020 equation that does not use a race coefficient.Performed By: #### JAMES STARR, 1987-08, 69149-8 #### [facility] ([id number]) [address] [place] [address] 94229 #### 97536-1 #### [facility] ([id number]) [address] [facility], [address] [place], [place] [address]NSKZHZROGEULrn 15-25-4822Bwzir gap [Moles/Vol]7 mmol/LNormal5-15 [facility] HospitalComment on above:Performed By: #### JAMES STARR, 1987-08, 54289-5 #### [facility] ([id number]) [address] [place] [address] 46386 #### 48345-2 #### [facility] ([id number]) [address] [place], [place] [address]Ccsjjfhi [Moles/Vol]104 mmol/QUbgqcv11-393WetSdjmdlSaint David'S Round Rock Medical CenterComment on above:Performed By: #### JAMES STARR, 1987-08, 48317-8 #### [facility] ([id number]) [address] [place] [address] 64530 #### 48024-9 #### [facility] ([id number]) [address], [address] [place], [place] [address]NY6 [Moles/Vol]21 mmol/LBry17-44VdaDbefgs [facility] Comment on above:Performed By: #### JAMES STARR, 1987-08, 54587-7 #### [facility] ([id number]) [address] [place] [address] 37480 #### 01841-2 #### [facility] ([id number]) [address], [address] [place], [place] [address]Atlbjkuxk [Moles/Vol]4.3 mmol/LNormal3.5-5.0ProSaint David'S Round Rock Medical CenterComment on above:Performed By: #### JAMES STARR, 1987-08, 05681-0 #### [facility] ([id number]) [address] [place] [address] 47735 #### 84935-2 #### [facility] ([id number]) [address], [address] [place], [place] [address]Rdjurb [Moles/Vol]132 mmol/GXlk888-816SwyNsrxoqWilson Health Comment on above:Performed By: #### JAMES STARR, 1987-08, 64619-7 #### [facility] ([id number]) [address] [place] [address] 69426 #### 60555-4 #### [facility] ([id number]) [address] [facility], [address] [place], [place] [address]Wceybqnqlqh peptide.B prohormone N-Terminal [Mass/Vol]on 02-44-8459GR Pro BNPSee BelowNormalProSaint David'S Round Rock Medical CenterComment on above: Result Comment: NOTE TEST RESULT FLAG UNIT REF.RANGE PRO B Natr Peptide 1296 H pg/mL <125 Test Performed By: [place] [address] Storage Receipt Poster: Charlotte Hart III #[id number] By: #### JAMES STARR, 1987-08, 59292-1 #### [facility] ([id number]) [address] [place] [address] 51802 #### 91699-6 #### [facility] ([id number]) [address] [facility], [address] [place], [place] [address]PFNVU UREA NITROGENon 86-01-6718Hmnp nitrogen [Mass/Vol]34 mg/dL High5-27ProSaint David'S Round Rock Medical CenterComment on above:Performed By: #### JAMES STARR, 1987-08, 67104-0 #### [facility] ([id number]) [address] [place] [address] 07329 #### 85757-6 #### [facility] ([id number]) [address] [facility], [address] [place], [place] [address]WCLMTBYYKHde 62-16-0473Bsropyoaoh [Mass/Vol]3.13 mg/dLHigh 0.70-1.20Wilson HealthComment on above:Result Comment: METHOD TRACEABLE TO IDMS STANDARDPerformed By: #### JAMES STARR, 1987-08, 33234-1 #### [facility] ([id number]) [address] [place] [address] 11416 #### 85879-8 #### [facility] ([id number]) [address] [facility], [address] [address]JOE/1.73 sq M.predicted among non-blacks MDRD (S/P/Bld) [Vol rate/Area]22 mL/min/{1.73_m2}Low>59ProSaint David'S Round Rock Medical CenterComment on above: Result Comment: Reported eGFR is based on the CKD-EPI 2020 equation that does not use a race coefficient.Performed By: #### JAMES STARR, 1987-08, 78278-0 #### [facility] ([id number]) [address] [place] [address] 21583 #### 10617-6 #### [facility] ([id number]) [address] [facility], [address] [place], [place] [address]MPAYEMFIQEQLgl 44-05-7426Ohttn gap [Moles/Vol]8 mmol/LNormal5-15 ProMSharp [facility] Vista Medical CenterComment on above:Performed By: #### JAMES STARR, 1987-08, 35798-8 #### [facility] ([id number]) [address] [place] [address] 66360 #### 15912-0 #### [facility] ([id number]) [address] [place], [place] [address]Xpobotff [Moles/Vol]106 mmol/JHxbnya24-442XebMrtexhSaint David'S Round Rock Medical CenterComment on above:Performed By: #### JAMES STARR, 1987-08, 56778-7 #### [facility] ([id number]) [address] [place] [address] 50665 #### 33292-7 #### [facility] ([id number]) [address] [facility], [address] [place], [place] [address]FB3 [Moles/Vol]20 mmol/CPud09-38MnlErakcwTrumbull Memorial Hospital Comment on above:Performed By: #### JAMES STARR, 1987-08, 66546-5 #### [facility] ([id number]) [address] [place] [address] 09394 #### 96082-2 #### [facility] ([id number]) [address] [facility], [address] [place], [place] [address]Ozjntkufx [Moles/Vol]4.7 mmol/LNormal3.5-5.0ProSaint David'S Round Rock Medical CenterComment on above:Performed By: #### JAMES STARR, 1987-08, 42589-7 #### [facility] ([id number]) [address] [place] [address] 73939 #### 15816-6 #### [facility] ([id number]) [address] [facility], [address] [place], [place] [address]Uzuxol [Moles/Vol]134 mmol/HXcaylh288-962IpbFvsnhq [facility]remont HospitalComment on above:Performed By: #### JAMES STARR, 1987-08, 76846-1 #### [facility] ([id number]) [address] [place] [address] 05255 #### 89522-0 #### [facility] ([id number]) [address] [facility], [address] [place], [place] [address]Tfwsyfynwkw peptide.B prohormone N-Terminal [Mass/Vol]on 00-01-4572SQ Pro BNPSee BelowNormalProSaint David'S [facility] Medical CenterComment on above: Result Comment: NOTE TEST RESULT FLAG UNIT REF.RANGE PRO B Natr Peptide 413 H pg/mL <125 Test Performed By: [place] [address] Storage Receipt Poster: Charlotte Hart III #[id number] By: #### JAMES STARR, 1987-08, 96479-6 #### [facility] ([id number]) [address] [place] [address] 72174 #### 47641-3 #### [facility] ([id number]) [address] [place] [address] [address] [place], [place] [address]VXXBL UREA NITROGENon 14-22-5636Kbye nitrogen [Mass/Vol]33 mg/dL High5-27ProSaint David'S Round Rock Medical CenterComment on above:Performed By: #### JAMES STARR, 1987-08, 53289-6 #### [facility] ([id number]) [address] [place] [address] 32597 #### 94336-1 #### [facility] ([id number]) [address] [place] [address], [address] [place], [place] [address]OHSMYDZAYYct 44-31-4715Sbvovvqrjq [Mass/Vol]2.37 mg/dLHigh 0.70-1.20ProSaint David'S Round Rock Medical CenterComment on above:Result Comment: METHOD TRACEABLE TO IDMS STANDARDPerformed By: #### JAMES STARR, 1987-08, 55112-7 #### [facility] ([id number]) [address] [place] [address] 78231 #### 99298-9 #### [facility] ([id number]) [address] [facility], [address] [place], [place] [address]DSE/1.73 sq M.predicted among non-blacks MDRD (S/P/Bld) [Vol rate/Area]30 mL/min/{1.73_m2}Low>59ProSaint David'S Round Rock Medical CenterComment on above: Result Comment: Reported eGFR is based on the CKD-EPI 2020 equation that does not use a race coefficient.Performed By: #### JAMES STARR, 1987-08, 08825-3 #### [facility] ([id number]) [address] [place] [address] 15369 #### 38682-1 #### [facility] ([id number]) [address] [facility], [address] [place], [place] [address]YYAJZKWPQZUCkq 88-14-9201Csyah gap [Moles/Vol]7 mmol/LNormal5-15 [facility] HospitalComment on above:Performed By: #### JAMES STARR, 1987-08, 88197-7 #### [facility] ([id number]) [address] [place] [address] 95442 #### 52078-6 #### [facility] ([id number]) [address] [facility], [address] [place], [place] [address]Hdspotwu [Moles/Vol]106 mmol/ZGsclzz72-630XmmCfqubgSaint David'S Round Rock Medical CenterComment on above:Performed By: #### JAMES STARR, 1987-08, 61516-0 #### [facility] ([id number]) [address] [place] [address] 18231 #### 64701-6 #### [facility] ([id number]) [address] [facility], [address] [place], [place] [address]RG5 [Moles/Vol]20 mmol/JQqm98-86WwgAmkpuzTrumbull Memorial Hospital Comment on above:Performed By: #### JAMES STARR, 1987-08, 87538-8 #### [facility] ([id number]) [address] [place] [address] 94469 #### 21992-3 #### [facility] ([id number]) [address] [facility], [address] [place], [place] [address]Xpuwaaxyw [Moles/Vol]4.6 mmol/LNormal3.5-5.0Wilson HealthComment on above:Performed By: #### JAMES STARR, 1987-08, 80809-2 #### [facility] ([id number]) [address] [place] [address]370 #### 03829-4 #### [facility] ([id number]) [address] [facility] [facility], [address] [place], [place] [address]Albksa [Moles/Vol]133 mmol/UCpj636-667NzpKaoxjgWilson Health Comment on above:Performed By: #### JAMES STARR, 1987-08, 10399-3 #### [facility] ([id number]) [address] [place] [address] 61076 #### 85868-0 #### [facility] ([id number]) [address] [facility], [address] [place], [place] [address]Sdmlouaxnkw peptide.B prohormone N-Terminal [Mass/Vol]on 45-95-0627TB Pro BNPSee BelowNormalProSaint David'S Round Rock Medical CenterComment on above: Result Comment: NOTE TEST RESULT FLAG UNIT REF.RANGE PRO B Natr Peptide 526 H pg/mL <125 Test Performed By: [facility] Recorded Future [address] [address] Storage Receipt Poster: Charlotte Hart III #[id number] By: #### BMP, CBCA, 1988-5, 03922-8 #### [facility] ([id number]) [address] [facility], [place] [address] #### 88121-5 #### [facility] ([id number]) [address] [place] [address], [address] [place], [place] [address]Aiat,Urineon 66-40-5972Scci,UrineSpecimen Description .VOIDED URINE Culture ESCHERICHIA COLI >100,000 [...] SUSCEPTIBLE Tobramycin 4 SUSCEPTIBLE Trimethoprim/Sulfa >=320 RESISTANTResistantMercy Connecticut Children'S Medical CenterComment on above:Performed By: #### URC #### [facility] [address] [place], [place] 6269108 Manager Of Medical: Griffin Carrion MD [facility] [address] [place] [address] Manager Of Medical: WAYNE Mccann w/Reflex Cultureon 49-23-2365Ukyuwddhq, SemiQt,UrNegativeNormalNEGMercy Connecticut Children'S Medical CenterComment on above:Performed By: #### UAX, UMICAO #### [facility] [address] [place] [address] Manager Of Medical: Brenda Mccann, UrineTRACEAbnormalNEGAcmc Healthcare System Glenbeigh Comment on above:Performed By: #### UAX, UMICAO #### [facility] [address] [place] [address] Dr. [place], [place] [phone] Manager Of Medical: SHANI Mccannlarity (U)SLIGHTLY CLOUDYAbnormalCLEARMercy Flagstaff HospitalComment on above:Performed By: #### UAX, UMICAO #### [facility] [address] [place] [address] Dr[address] [place], [place] [phone] Manager Of Medical: SHANI Mccannolor (U)YellowNormalYOhio Valley Hospital Comment on above:Performed By: #### UAX, UMICAO #### [facility] [address] [place] [address] Dr. [place], [place] [phone] Manager Of Medical: Jameson Aaron MDGlucose Ql (U)3+ mg/dLAbnormalNEGDiley Ridge Medical Center HospitalComment on above:Performed By: #### UAX, UMICAO #### [facility] [address] [place] [address] Dr[address] [place], [place] 6793983 Manager Of Medical: Jameson Aaron MDKetones Ql (U)NegativeNormalNEGDiley Ridge Medical Center HospitalComment on above:Performed By: #### UAX, UMICAO #### [facility] [address] [place] [address] Dr. [place], [place] [phone] Manager Of Medical: Jameson Aaron MDLeukocyte esterase Test strip Ql (U)TRACEAbnormal NEGDiley Ridge Medical Center HospitalComment on above:Performed By: #### UAX, UMICAO #### [facility] [address] [place] [address] Dr. [place], [place] 0362083 Manager Of Medical: Jeaneth Mccannite,UrNegativeSt. John of God Hospital Comment on above:Performed By: #### UAX, UMICAO #### [facility] [address] [place] [address] [place] [address] Manager Of Medical: CANDACE MccannH,Ur5.3Ytxxdd0.0-9.0Acmc Healthcare System GlenbeighComment on above:Performed By: #### UAX, UMICAO #### [facility] [address] [place] [address] Dr. [place], [place] [phone] Manager Of Medical: CANDACE Mccannrotein Ql (U)2+ mg/dLAbnormalNEGDiley Ridge Medical Center HospitalComment on above:Performed By: #### UAX, UMICAO #### [facility] [address] [place] [address] Dr. [place], [place] 7853683 Manager Of Medical: BUCK Mccannpec. [place],Ur1.238Plnv5.010-1.020[facility] HospitalComment on above:Performed By: #### LORI JOSEPHO #### [facility] [address] [place] [address] Dr. [place], [place] 0860083 Manager Of Medical: Jameson Aaron MDUrobilinogen,UrNormalNormal0.0-1.0Acmc Healthcare System GlenbeighComment on above:Performed By: #### LORI JOSEPHO #### [address] [place], [place] 4990083 Manager Of Medical: Jameson Aaron MDUrinalysis,Microon 26-77-2450Okujgsvt3+Abnormal NONEMerAdena Health System HospitalComment on above:Performed By: #### JAKE, UMICAO #### [facility] [address] [place] [address] Dr. [place], [place] 8250783 Manager Of Medical: Jameson Aaron MDEpithelial cells LM Ql (Urine sed)0 TO 4Bjuohe8-4 [facility] HospitalComment on above:Performed By: #### UAX, UMICAO #### [facility] [address] [place] [address] Dr. [place], [place] 9404583 Manager Of Medical: Jameson Aaron MDEpithelial, Renal0 TO 6Ycapub6UueuiAcmc Healthcare System GlenbeighComment on above:Performed By: #### LORI JOSEPHO #### [facility] [address] [place], [place] [phone] Manager Of Medical: Edmond Mccann RBC's0 TO 6Hndgnm7-8DbqqpWadsworth-Rittman Hospital Comment on above:Performed By: #### COURTNEY JOSEPH #### [facility] [address] [place], [place] 0971983 Manager Of Medical: Edmond Mccann WBC's10 TO 29Dpsbvy6-6SvnmnAcmc Healthcare System Glenbeigh Comment on above:Performed By: #### COURTNEY JOSEPH #### [facility] [address] [place], [place] 6773383 Manager Of Medical: Jameson Aaron MDYeastPRESENCE NOTEDAbnormalNONEMeCharlotte Hungerford HospitalComment on above:Performed By: #### COURTNEY JOSEPH #### [facility] [address] [place], [place] 2994483 Manager Of Medical: BRENDA Mccann UREA NITROGENon 44-91-4720Nrrf nitrogen [Mass/Vol]44 mg/dLHigh5-27ProSaint David'S Round Rock Medical CenterComment on above:Performed By: #### ELEC, 3094-0, OVERSIZE LOAD PILOT ESCORT, 01985-3 #### [facility] ([id number]) [address] [place] [address], [place] [address] #### 94743-8, HA1C #### [facility] ([id number]) [address] [place] [address], [address] [place], [place] [address]EUOFWTABTXqj 64-61-6313Ylsqvnsdot [Mass/Vol]2.71 mg/dLHigh 0.70-1.20ProSaint David'S Round Rock Medical CenterComment on above:Result Comment: METHOD TRACEABLE TO IDMS STANDARDPerformed By: #### ELEC, 3094-0, OVERSIZE LOAD PILOT ESCORT, 30222-0 #### [facility] ([id number]) [address] [place] [address] #### 05624-8, HA1C #### [facility] ([id number]) [address] [place] [address], [address] [place], [place] [address]BWT/1.73 sq M.predicted among non-blacks MDRD (S/P/Bld) [Vol rate/Area]26 mL/min/{1.73_m2}Low>59ProSaint David'S Round Rock Medical CenterComment on above: Result Comment: Reported eGFR is based on the CKD-EPI 2020 equation that does not use a race coefficient.Performed By: #### PHIL, 3094-0, OVERSIZE LOAD PILOT ESCORT, 46676-4 #### [facility] ([id number]) [address] [place] [address] #### 34454-6, HA1C #### [facility] ([id number]) [address] [place] [address], [address] [place] [address]ZWNLIFRBIUTVwk 51-52-1364Lfwxq gap [Moles/Vol]11 mmol/LNormal 5-15ProSaint David'S Round Rock Medical CenterComment on above:Performed By: #### ELEC, 3094-0, OVERSIZE LOAD PILOT ESCORT, 59366-5 #### [facility] ([id number]) [address] [place] [address] #### 30880-1, HA1C #### [facility] ([id number]) [address] [place] [address], [address] [place], [place] [address]Qoimmsrm [Moles/Vol]101 mmol/XYcecqj28-851FapUtcjpsSaint David'S Round Rock Medical CenterComment on above:Performed By: #### ELEC, 3094-0, OVERSIZE LOAD PILOT ESCORT, 87906-6 #### [facility] ([id number]) [address] [place] [address] #### 75562-4, HA1C #### [facility] ([id number]) [address] [place] [address], [address] [place], [place] [address]YF9 [Moles/Vol]18 mmol/GDzy02-79ZjpVpkjgkTrumbull Memorial Hospital Comment on above:Performed By: #### ELEC, 3094-0, OVERSIZE LOAD PILOT ESCORT, 14298-2 #### [facility] ([id number]) [address] [place] [address] #### 95756-7, HA1C #### [facility] ([id number]) [address] [facility], [address] [place], [place] [address]Hnnssgzan [Moles/Vol]4.4 mmol/LNormal3.5-5.0ProSaint David'S Round Rock Medical CenterComment on above:Performed By: #### ELEC, 3094-0, OVERSIZE LOAD PILOT ESCORT, 17751-3 #### [facility] ([id number]) [address] [place] [address] #### 58252-8, HA1C #### [facility] ([id number]) [address] [facility], [address] [place], [place] [address]Tblobk [Moles/Vol]130 mmol/DJrw937-833IpbScwjcnWilson Health Comment on above:Performed By: #### ELEC, 309-0, OVERSIZE LOAD PILOT [place], 15482-6 #### [facility] ([id number]) [address] [place] [address] #### 54086-4, HA1C #### [facility] ([id number]) [address], [address] [place], [place] [address]CYX A1C (GLYCO-HGB)on 02-46-7069Xqlctos [Mass/Vol]260 mg/dL NormalProSaint David'S Round Rock Medical CenterComment on above:Performed By: #### BMP, CBCA, 1987-, 92327-6 #### [facility] ([id number]) [address] [place] [address] #### 36801-2 #### [facility] ([id number]) [address] [place] [address], [address] [place], [place] [address]QqX0c (Bld) [Mass fraction]10.7 %High4.4-5.6Wilson HealthComment on above:Result Comment: NOTE ADA Guidelines Result HgbA1c Normal : less than 5.7 % Prediabetes : 5.7 % to 6.4 % Diabetes : > 6.4 % Use with caution in patients with abnormal hemoglobin variants as the half-life of red blood cells and in vivo glycation rates are affected.Performed By: #### MATTY, CBCA, 1987-08, 32572-1 #### [facility] ([id number]) [address] [place] [address] #### 23967-9 #### [facility] ([id number]) [address] [place] [address], [address] [place], [place] [address]Lpcgg 1996 panelon 93-35-5331Ivsgmefuidw [Mass/Vol]205 mg/dLHigh 150-200ProSaint David'S Round Rock Medical CenterComuniversity of michigan health on above:Performed By: #### PHIL, 3094- 0, OVERSIZE LOAD PILOT ESCORT, 71480-5 #### [facility] ([id number]) [address] [place] [address] #### 73349-7, HA1C #### [facility] ([id number]) [address] [place] [address], [address] [place], [place] [address]Aqvcsmqaway in HDL [Mass/Vol]35 mg/dLLow>39ProSaint David'S Round Rock Medical CenterComuniversity of michigan health on above:Result Comment: HDL <40 mg/dL - High Risk HDL > or = 40mg/dL- Desirable HDL >60 mg/dL - Negative Risk Performed By: #### PHIL, 3094-0, OVERSIZE LOAD PILOT ESC[place], 03661-5 #### [facility] ([id number]) [address] [place] [address] #### 61477-2, HA1C #### [facility] ([id number]) [address], [address] [place], [place] [address]Oqfmqzhusrm in LDL [Mass/Vol]120 mg/dLNormal<130ProSaint David'S Round Rock Medical CenterComment on above:Result Comment: LDL <100 mg/dL - Desirable LDL >160 mg/dL - High Risk Performed By: #### ELEC, 3094-0, OVERSIZE LOAD PILOT ESC[place], 77291-8 #### [facility] ([id number]) [address] [place] [address] #### 16008-4, HA1C #### [facility] ([id number]) [address], [address] [place], [place] [address]Daqkcvmitfq in VLDL [Mass/Vol]50 mg/dLHigh0-30ProSaint David'S Round Rock Medical CenterComment on above:Performed By: #### ELEC, 3094-0, OVERSIZE LOAD PILOT ESCORT, 80052-5 #### [facility] ([id number]) [address] [place] [address] #### 29143-6, HA1C #### [facility] ([id number]) [address], [address] [place], [place] [address]TFQLGGFHOGD:HDL5.9High1.0-5.0ProSaint David'S Round Rock Medical CenterComment on above:Performed By: #### ELEC, 3094-0, OVERSIZE LOAD PILOT ESCORT, 92814-6 #### [facility] ([id number]) [address] [place] [address] #### 68106-4, HA1C #### [facility] ([id number]) [address], [address] [place], [place] [address]Ibpltfwhkfyi [Mass/Vol]248 mg/yFVoel52-658KjpMoryepSaint David'S Round Rock Medical CenterComment on above:Performed By: #### PHIL, 3094-0, OVERSIZE LOAD P[address] [place], 30093-5 #### [facility] ([id number]) [address] [place] [address] #### 15740-3, HA1C #### [facility] ([id number]) [address], [address] [place], [place] [address]YUMIZBQAGGPE - ALBUMIN:CREATININE URINE RATIOon 05-06-2023 ALB/CREAT GDECQ5081.0 mg/g creatHigh0.0-30.0ProSaint David'S Round Rock Medical CenterComment on above:Performed By: #### JAMES STARR, 1987-08, 23308-6 #### [facility] ([id number]) [address] [place] [address] #### 31241-6 #### [facility] ([id number]) [address] [facility], [address] [place], [place] [address]Abqgtcp DL <= 20 mg/L (U) [Mass/Vol]195.2 mg/dLHigh0.0-1.9 Pro[facility]ust[facility] Rehabilitation HospitalComment on above:Performed By: #### JAMES STARR, 1987-08, 44796-7 #### [facility] ([id number]) [address] [place] [address] #### 78240-5 #### [facility] ([id number]) [address], [address] [place], [place] [address]JINES CREAT71.06 mg/dLNormalProSaint David'S Round Rock Medical CenterComment on above:Performed By: #### JAMES STARR, 1987-08, 22694-9 #### [facility] ([id number]) [address] [place] [address] #### 08101-3 #### [facility] ([id number]) [address] [place] [address], [address] [place], [place] [address]Hlqxqzzrjpi peptide.B prohormone N-Terminal [Mass/Vol]on 06-48-9997UY Pro BNPSee BelowNormalProMedica Tustin Rehabilitation HospitalComment on above: Result Comment: NOTE TEST RESULT FLAG UNIT REF.RANGE PRO B Natr Peptide 314 H pg/mL <125 Test Performed By: [address] [address] Storage Receipt Poster: Tyler Valle III, M.D. CLIA #[id number] By: #### BMP, CBCA, 1987-, 92512-3 #### [facility] ([id number]) [address] [place] [address] #### 17531-7 #### [facility] ([id number]) [address] [place] [address], [address] [place], [place] [address]CTUZUKTSWNml 57-39-7578Qtjvfsucb Ql (U)NegativeNormalNEG [facility] Rehabilitation HospitalComment on above:Performed By: #### UA #### [facility] ([id number]) [address] [place] [address]CNZWI/HGBTraceAbnormalNEGProCleveland Clinic Children'S Hospital For Rehabilitationca [facility]ust[facility] Rehabilitation HospitalComuniversity of [facility] health on above:Performed By: #### UA #### [facility] ([id number]) [address] [place] [address]Hcefr (U)YELLOWNormalYELLOWProMedica Willow Springs HospitalComment on above:Performed By: #### UA #### [facility] ([id number]) [address] [place] [address], [place] [address]Tpbxwib Ql (U)>1000AbnormalNEGProSaint David'S Round Rock Medical CenterComment on above:Performed By: #### UA #### [facility] ([id number]) [address] [place] [address], [place] [address]Tohtnni Ql (U)NegativeNormalNEGWilson Health Comment on above:Performed By: #### UA #### [facility] ([id number]) [address] [place] [address], [place] [address]Uhaetvjwz esterase Test strip Ql (U)NegativeSelect Medical Specialty Hospital - CincinnatiComment on above:Result Comment: HIGH CONCENTRATIONS OF GLUCOSE MAY DECREASE THE REACTIVITY OF THE DIPSTICK LEUKOCYTE TEST PAD.Performed By: #### UA #### [facility] ([id number]) [address] [place] [address], [place] [address]GIDWCLKQLWUZTGmwwhogwYHRDMhzNsjxby [facility] HospitalComment on above:Performed By: #### UA #### [facility] ([id number]) [address] [place] [address], [place] [address]Tjcyify Ql (U)PositiveUC Health Comment on above:Performed By: #### UA #### [facility] ([id number]) [address] [place] [address], [place] [address]kC (U)6.0 [pH]Normal5.0-8.5PTrumbull Memorial HospitalComment on above:Performed By: #### UA #### [facility] ([id number]) [address] [place] [address], [place] [address]Fcvcjvq Ql (U)>300AbnormalNEGProSaint David'S Round Rock Medical CenterComment on above:Performed By: #### UA #### [facility] ([id number]) [address] [place] [address]I.B.CELLS5 /hpfNormal0-5PTrumbull Memorial HospitalComment on above:Performed By: #### UA #### [facility] ([id number]) [address] [place] [address]Qmazpuqf gravity (U) [Rel density]1.927Tciwru0.003-1.035 Wilson HealthComment on above:Performed By: #### UA #### [facility] ([id number]) [address] [place] [address]URZWKUAO EPITHELIUM4 /hpfNormal0-[address] [place] [address] Comment on above:Performed By: #### UA #### [facility] ([id number]) [address] [place] [address]FVPWGDHQOCAOXMloieijgNQIKHZppPcoxjj [facility] HospitalComment on above:Performed By: #### UA #### [facility] ([id number]) [address] [place] [address] 219[address]Wngectovlbrv Qn (U)0.2 {Chaya'U}/dLNormal<1.1PTrumbull Memorial HospitalComment on above:Performed By: #### UA #### [facility] ([id number]) [address] [place] [address]Z.B.CELLS>883Rsxh2-0UlkLtwdpkTrumbull Memorial HospitalComment on above: Performed By: #### UA #### [facility] ([id number]) [address] [place] [address]DNWJX CULTUREon 07-65-9580Pxxpwllm identified Cx Nom (U) SPECIMEN NOTES URINE RECEIVED WITHOUT PRESERVATIVE CULTURE RESULTS MULTIPLE SPECIES PRESENT. PROBABLE COLLECTION CONTAMINATION. SUGGEST REPEAT SPECIMEN. URINE RECEIVED WITHOUT PRESERVATIVE-DELAYS IN TRANSPORT MAY AFFECT RESULTS.INTERPRET WITH CAUTION AND CLINICAL CORRELATION IS RECOMMENDED.Normal Wilson HealthComment on above:Performed By: #### JAMES STARR, 1987-08, 70151-5 #### [facility] ([id number]) [address] [place] [address] #### 86772-8 #### [facility] ([id number]) [address], [address] [place], [place] [address]WEEHY METABOLIC PANLon 98-01-9962Takff gap [Moles/Vol]6 mmol/L Normal5-15ProSaint David'S Round Rock Medical CenterComment on above:Performed By: #### JAMES STARR, 1987-08, 68842-0 #### [facility] ([id number]) [address] [place] [address] #### 79978-7 #### [facility] ([id number]) [address], [address] [place], [place] [address]Ogorqdr [Mass/Vol]8.6 mg/dLNormal8.5-10.5ProMedica [facility]ust[facility] Rehabilitation HospitalComment on above:Performed By: #### JAMES STARR, 1987-08, 93850-4 #### [facility] ([id number]) [address] [place] [address] #### 36382-5 #### [facility] ([id number]) [address], [address] [place], [place] [address]Uxqvphvi [Moles/Vol]101 mmol/UZgqigm92-732VttJglrowSaint David'S Round Rock Medical CenterComment on above:Performed By: #### JAMES STARR, 1987-08, 34488-7 #### [facility] ([id number]) [address] [place] [address] #### 20800-3 #### [facility] ([id number]) [address], [address] [place], [place] [address]VX7 [Moles/Vol]19 mmol/TOjd18-45IanOxhsrxTrumbull Memorial Hospital Comment on above:Performed By: #### JAMES STARR, 1987-08, 13065-2 #### [facility] ([id number]) [address] [place] [address] #### 02714-5 #### [facility] ([id number]) [address] [facility] [facility], [address] [place], [place] [address]Rxkfrlxviz [Mass/Vol]2.57 mg/dLHigh0.70-1.20Wilson HealthComment on above:Result Comment: METHOD TRACEABLE TO IDMS STANDARD Performed By: #### JAMES STARR, 1987-08, #### [facility] ([id number]) [address] [place] [address] #### 60196-0 #### [facility] ([id number]) [address] [facility], [address] [place], [place] [address]CRN/1.73 sq M.predicted among non-blacks MDRD (S/P/Bld) [Vol rate/Area]27 mL/min/{1.73_m2}Low>59ProSaint David'S Round Rock Medical CenterComment on above: Result Comment: Reported eGFR is based on the CKD-EPI 2020 equation that does not use a race coefficient.Performed By: #### JAMES STARR, 1987-08, 96865-2 #### [facility] ([id number]) [address] [place] [address] #### 84809-6 #### [facility] ([id number]) [address] [facility], [address] [place], [place] [address]Whwjbfh [Mass/Vol]377 mg/gLNbgw43-56VluRjoajpWilson Health Comment on above:Performed By: #### JAMES STARR, 1987-08, 00410-0 #### [facility] ([id number]) [address] [place] [address] #### 28903-7 #### [facility] ([id number]) [address] [place] [address], [address] [place], [place] [address]Uiybwlzjg [Moles/Vol]4.2 mmol/LNormal3.5-5.0ProSaint David'S Round Rock Medical CenterComment on above:Performed By: #### JAMES STARR, 1987-08, 15042-6 #### [facility] ([id number]) [address] [place] [address] #### 79790-4 #### [facility] ([id number]) [address] [place] [address], [address] [place] [address]Vkwkuz [Moles/Vol]126 mmol/DMzq309-936FpmDugmrcSaint David'S Round Rock Medical Center Comment on above:Performed By: #### JAMES STARR, 1987-08, 78518-5 #### [facility] ([id number]) [address] [place] [address] #### 38451-6 #### [facility] ([id number]) [address] [place] [address], [address] [place] [address]Apqw nitrogen [Mass/Vol]30 mg/dLHigh5-27ProSaint David'S Round Rock Medical CenterComment on above:Performed By: #### JAMES STARR, 1987-08, 24265-7 #### [facility] ([id number]) [address] [place] [address] #### 82036-7 #### [facility] ([id number]) [address] [place] [address], [address] [place], [place] [address]WRN AND AUTO DIFFon 47-43-6860LGOCUTKG BASOPHIL0.1 X10E9/LNormal 0.0-0.2ProMedica [facility]ustin Rehabilitation HospitalComment on above:Performed By: #### JAMES STARR, 1987-08, 15730-0 #### [facility] ([id number]) [address] [place] [address]179 #### 46869-5 #### [facility] ([id number]) [address] [facility], [address] [place], [place] [address]LPGLLOYN NEUTROPHIL8.8 X10E9/LHigh1.5-6.6ProSaint David'S Round Rock Medical CenterComment on above:Performed By: #### MATTY CBCA, 1987-08, 60786-5 #### [facility] ([id number]) [address] [place] [address] #### 37237-8 #### [facility] ([id number]) [address] [facility], [address] [place], [place] [address]Zfufstwtq/100 WBC (Bld)0.5 %[facility] Comment on above:Performed By: #### MATTY CBCJarrett, 1987-08, 04406-2 #### [facility] ([id number]) [address] [place] [address] #### 33259-2 #### [facility] ([id number]) [address] [facility], [address] [place], [place] [address]Dskrpulpdqa (Bld) [#/Vol]0.3 10*3/uLNormal0.0-0.4ProSaint David'S Round Rock Medical CenterComment on above:Performed By: #### MATTY CBCA, 1987-08, 42879-7 #### [facility] ([id number]) [address] [place] [address] #### 54029-0 #### [facility] ([id number]) [address] [facility] [facility], [address] [place], [place] [address]Cdvtpvmycxv/100 WBC (Bld)2.6 %[facility] Comment on above:Performed By: #### JAMES STARR, 1987-08, 12180-0 #### [facility] ([id number]) [address] [place] [address] #### 35073-2 #### [facility] ([id number]) [address], [address] [place], [place] [address]Tkrosxalqph distribution width (RBC) [Ratio]15.5 %High11.5-15.0 ProMSharp [facility] Vista Medical CenterComment on above:Performed By: #### JAMES STARR, 1987-08, 02474-7 #### [facility] ([id number]) [address] [place] [address] #### 53548-1 #### [facility] ([id number]) [address], [address] [place], [place] [address]Fsaxntfwkx (Bld) [Volume fraction]36.8 %Bkx48-05GbySpvwahSaint David'S Round Rock Medical CenterComment on above:Performed By: #### JAMES STARR, 1987-08, 13215-3 #### [facility] ([id number]) [address] [place] [address] #### 19416-6 #### [facility] ([id number]) [address], [address] [place], [place] [address]Pwjlbckqyn (Bld) [Mass/Vol]12.0 g/dLLow13.0-17.0Wilson HealthComment on above:Performed By: #### JAMES STARR, 1987-08, 56064-3 #### [facility] ([id number]) [address] [place] [address] 28952 #### 60909-3 #### [facility] ([id number]) [address], [address] [place], [place] [address]Nxwptgnonre (Bld) [#/Vol]1.9 10*3/uLNormal1.0-3.5ProMedVan Ness campusComment on above:Performed By: #### MATTY, CBCA, 1987-08, 42694-6 #### [facility] ([id number]) [address] [place] [address] 67871 #### 43607-8 #### [facility] ([id number]) [address] [facility], [address] [place], [place] [address]Hlkdeuienfy/100 WBC (Bld)15.1 %NormalWilson Health Comment on above:Performed By: #### MATTY CBCA, 1987-08, 75458-5 #### [facility] ([id number]) [address] [place] [address] 19721 #### 12104-3 #### [facility] ([id number]) [address] [facility], [address] [place], [place] [address]FSI (RBC) [Entitic mass]28.2 atZvqosd97-46FueCcxpkkWilson HealthComment on above:Performed By: #### MATTY CBCA, 1987-08, 59592-1 #### [facility] ([id number]) [address] [place] [address] 13430 #### 48334-6 #### [facility] ([id number]) [address] [facility], [address] [place], [place] [address]GPOC (RBC) [Mass/Vol]32.7 g/qTMxetup70-49QknAduwgsWilson HealthComment on above:Performed By: #### MATTY CBCA, 1987-08, 10091-6 #### [facility] ([id number]) [address] [place] [address] 03382 #### 29928-8 #### [facility] ([id number]) [address] [facility], [address] [place], [place] [address]CVB (RBC) [Entitic vol]86 pODgrlvj74-941LenWotivo Fremont HospitalComment on above:Performed By: #### MATTY CBCJarrett, 1987-08, 81468-2 #### [facility] ([id number]) [address] [place] [address] 33833 #### 98571-2 #### [facility] ([id number]) [address] [place], [place] [address]Jfmpxdfgx (Bld) [#/Vol]1.4 10*3/uLHigh0-0.9ProSaint David'S Round Rock Medical CenterComment on above:Performed By: #### MATTY CBCJarrett, 1987-08, 05629-8 #### [facility] ([id number]) [address] [place] [address] 72159 #### 18677-3 #### [facility] ([id number]) [address] [place], [place] [address]Fjupjwfwl/100 WBC (Bld)11.2 %NormalWilson Health Comment on above:Performed By: #### MATTY CBCJarrett, 1987-08, #### [facility] ([id number]) [address] [place] [address] 60785 #### 82493-4 #### [facility] ([id number]) [address] [place], [place] [address]Rsriztfsfww/100 WBC (Bld)70.6 %NormalWilson Health Comment on above:Performed By: #### MATTY CBCJarrett, 1987-08, 12065-0 #### [facility] ([id number]) [address] [place] [address] 61687 #### 82697-3 #### [facility] ([id number]) [address] [place], [place] [address]Tnolbvod mean volume (Bld) [Entitic vol]7.6 fLNormal7-12 ProMSharp Chula Vista Medical CenterComment on above:Performed By: #### JAMES STARR, 1987-08, #### [facility] ([id number]) [address] [place] [address] 26612 #### 39917-9 #### [facility] ([id number]) [address] [facility], [address] [place], [place] [address]Qwjzhodea (Bld) [#/Vol]325 10*3/mVFycxhs301-641MfqRfkrtz Fremont HospitalComment on above:Performed By: #### JAMES STARR, 1987-08, #### [facility] ([id number]) [address] [place] [address] 65995 #### 03346-2 #### [facility] ([id number]) [address] [facility], [address] [place], [place] [address]EFV COUNT4.27 X10E12/LNormal4.10-5.70[facility] Comment on above:Performed By: #### JAMES STARR, 1987-08, #### [facility] ([id number]) [address] [place] [address] 62766 #### 42049-3 #### [facility] ([id number]) [address] [facility], [address] [place], [place] [address]KRI (Bld) [#/Vol]12.5 10*3/uLHigh4.0-11.0ProSaint David'S Round Rock Medical CenterComment on above:Performed By: #### JAMES STARR, 1987-08, 24129-4 #### [facility] ([id number]) [address] [place] [address] 66811 #### 70443-9 #### [facility] ([id number]) [address] [place], [place] [address]GMF [Mass/Vol]on 04-19-2023 REACTIVE PROTEIN7.8 mg/dLHigh 0.000-0.744ProMedica Tustin Rehabilitation HospitalComment on above:Performed By: #### JAMES STARR, 1987-08, 77215-5 #### [facility] ([id number]) [address] [place] [address] 24175 #### 99025-5 #### [facility] ([id number]) [address] [facility], [address] [place], [place] [address]SIM Photometric method (Bld) [Velocity]on 21-85-6943FQL, ERYTHROCYTE SEDIMENTATION NVXC785 mm/hHigh0-20ProSaint David'S Round Rock Medical CenterComment on above:Performed By: #### JAMES STARR, 1987-08, 35430-4 #### [facility] ([id number]) [address] [place] [address] 88454 #### 53985-8 #### [facility] ([id number]) [address] [facility], [address] [place], [place] [address]Zeviepgrait peptide.B prohormone N-Terminal [Mass/Vol]on 82-53-8179HC Pro BNPSee BelowNormalProSaint David'S Round Rock Medical CenterComment on above: Result Comment: NOTE TEST RESULT FLAG UNIT REF.RANGE PRO B Natr Peptide 587 H pg/mL <125 Test Performed By: DOANDigerati [address] [place] [address] Storage Receipt Poster: Charlotte Hart III #[id number] By: #### BMP, CBCA, 1988-5, 62201-5 #### [facility] ([id number]) [address] [place] [address], [place] [address] #### 61916-4 #### [facility] ([id number]) [address] [place] [address], [address] [place], [place] [address]Uzrwt Metabolic Profon 19-44-4855Tlimc gap [Moles/Vol]11 mmol/L Normal9-17Acmc Healthcare System GlenbeighComment on above:Performed By: #### SED, CRP, BMP, CDP #### [address] [place], [place] [address]83 Manager Of Medical: LENA Mccann/CRE Wtqch46Ccduuk1-08Grzjz [facility] Comment on above:Performed By: #### SED, CRP, BMP, CDP #### [address] [place] [address] Manager Of Medical: SHANI Mccannalcium [Mass/Vol]9.4 mg/dLNormal8.6-10.4A[facility] Healthcare System GlenbeighComment on above:Performed By: #### SED, CRP, BMP, CDP #### [address] [place] [address] Manager Of Medical: SHANI Mccannhloride [Moles/Vol]98 mmol/QCepsnz04-998OpzmbAcmc Healthcare System GlenbeighComment on above:Performed By: #### SED, CRP, BMP, CDP #### [facility] [address] [place] [address] [place] [address] Manager Of Medical: Jameson Aaron MDCO2 [Moles/Vol]18 mmol/GWvr72-06OevhzAcmc Healthcare System GlenbeighComment on above:Performed By: #### SED, CRP, BMP, CDP #### [address] [place], [place] [address] Manager Of Medical: SHANI Mccannreatinine [Mass/Vol]2.7 mg/dLHigh0.7-1.2[facility] Flagstaff HospitalComment on above:Performed By: #### EMIGDIO CRP, BMP, CDP #### [address] [place], [place] [address] Manager Of Medical: Jameson Aaron MDGFR/1.73 sq M.predicted among non-blacks MDRD (S/P/Bld) [Vol rate/Area]26 mL/min/{1.73_m2}Low>60Mer[facility] HospitalComment on above:Result Comment: These results are [...] By: #### EMIGDIO CRP, BMP, CDP #### [address] [place], [facility]83 Manager Of Medical: Jameson Aaron MDGlucose [Mass/Vol]268 mg/vTAvim73-89Huanb [facility] Children'S Medical CenterComment on above:Performed By: #### EMIGDIO CRP, BMP, CDP #### [address] [place] [address] Manager Of Medical: CANDACE Mccannotassium [Moles/Vol]5.2 mmol/LNormal3.7-5.3[facility] HospitalComment on above:Performed By: #### EMIGDIO CRP, BMP, CDP #### [address] [place], [place] [address] Manager Of Medical: BUCK Mccannodium [Moles/Vol]127 mmol/HPqi679-756AaxsiThe Institute of LivingComment on above:Performed By: #### SED CRP, BMP, CDP #### [address] [place] [address] Manager Of Medical: Yola Mccann nitrogen [Mass/Vol]44 mg/dLHigh8-23[facility] HospitalComment on above:Performed By: #### SED, CRP, BMP, CDP #### [address] [place] [address] Manager Of Medical: SHANI Mccann-Reactive Proteinon 43-00-5817ISU [Mass/Vol]131.1 mg/LHigh0.0-5.0MerAdena Health System HospitalComment on above:Performed By: #### SED, CRP, BMP, CDP #### [address] [place] [address] Manager Of Medical: SHANI MccannBC with Diffon 13-80-6852Yzo. Basophil0.06 k/uL Normal0.00-0.20MerAdena Health System HospitalComment on above:Performed By: #### SED, CRP, BMP, CDP #### [address] [place], [place] [address] Manager Of Medical: Megan Mccann.Imm.Granulocyte0.11 k/uLNormal0.00-0.30MerAdena Health System HospitalComment on above:Performed By: #### SED, CRP, BMP, CDP #### [address] [place], [place] [address] Manager Of Medical: Megan Mccann.Neutrophil (Seg)6.83 k/uLNormal1.50-8.10MerAdena Health System HospitalComment on above:Performed By: #### SED, CRP, BMP, CDP #### [address] [place] [address] Manager Of Medical: Jameson Aaron MDBasophils/100 WBC (Bld)1 %Normal0-2[facility] HospitalComment on above:Performed By: #### SED, CRP, BMP, CDP #### [address] [place] [address] Manager Of Medical: Jameson Aaron MDEosinophils (Bld) [#/Vol]0.22 10*3/uLNormal 0.00-0.44MerAdena Health System HospitalComment on above:Performed By: #### SED, CRP, BMP, CDP #### [address] [place] [address] Manager Of Medical: Jameson Aaron MDEosinophils/100 WBC (Bld)2 %Normal1-4[facility] HospitalComment on above:Performed By: #### SED, CRP, BMP, CDP #### [address] [place] [address] Manager Of Medical: Jameson Aaron MDErythrocyte distribution width (RBC) [Ratio]14.6 % High11.8-14.4MerAdena Health System HospitalComment on above:Performed By: #### SED, CRP, BMP, CDP #### [address] [place] [address] Manager Of Medical: Jameson Aaron MDHematocrit (Bld) [Volume fraction]41.9 %Normal 40.7-50.3[facility] HospitalComment on above:Performed By: #### SED, CRP, BMP, CDP #### [address] [place] [address] Manager Of Medical: Jameson Aaron MDHemoglobin (Bld) [Mass/Vol]13.2 g/dLNormal 13.0-17.0[facility] HospitalComment on above:Performed By: #### SED, CRP, BMP, CDP #### [address] [place] [address] Manager Of Medical: Jameson Aaron MDImmature granulocytes/100 WBC (Bld)1 %Xzlu2Nllzr [facility] HospitalComment on above:Performed By: #### SED, CRP, BMP, CDP #### [address] [place] [address] Manager Of Medical: Jameson Aaron MDLymphocytes (Bld) [#/Vol]1.83 10*3/uLNormal 1.10-3.70[facility] HospitalComment on above:Performed By: #### SED, CRP, BMP, CDP #### [address] [place] [address] Manager Of Medical: Freddy Mccannhocytes/100 WBC (Bld)18 %Oxk85-30DwkuuAcmc Healthcare System GlenbeighComment on above:Performed By: #### SED, CRP, BMP, CDP #### [address] [place] [address] Manager Of Medical: JUAN MccannCH (RBC) [Entitic mass]28.2 bvTeafmm06.2-33.5 [facility] HospitalComment on above:Performed By: #### SED, CRP, BMP, CDP #### [address] [place] [address] Manager Of Medical: JUAN MccannCHC (RBC) [Mass/Vol]31.5 g/vOQspimp60.4-34.8[facility] HospitalComment on above:Performed By: #### SED, CRP, BMP, CDP #### [address] [place] [address] Manager Of Medical: JUAN MccannCV (RBC) [Entitic vol]89.5 rORbparb14.6-102.9 [facility] HospitalComment on above:Performed By: #### SED, CRP, BMP, CDP #### [address] [place], [place] [address]83 Manager Of Medical: JUAN Mccannonocytes (Bld) [#/Vol]1.42 10*3/uLHigh0.10-1.20 [facility] System GlenbeighComment on above:Performed By: #### SED, CRP, BMP, CDP #### [address] [place], [place] [address] Manager Of Medical: JUAN Mccannonocytes/100 WBC (Bld)14 %High3-12A[facility] Healthcare System GlenbeighComment on above:Performed By: #### SED, CRP, BMP, CDP #### [address] [place], [place] [address] Manager Of Medical: Jameson Aaron MDNeutrophil (Seg)64 %Gavzzy85-30AfuxsAcmc Healthcare System GlenbeighComment on above:Performed By: #### SED, CRP, BMP, CDP #### [address] [place], [facility] Manager Of Medical: Jameson Aaron MDNRBC Automated0.0 per 100 WBCNormal0.0Acm[facility] Healthcare System GlenbeighComment on above:Performed By: #### SED, CRP, BMP, CDP #### [address] [place] [address] Manager Of Medical: Jayy Mccann mean volume (Bld) [Entitic vol]9.4 fL Normal8.1-13.5A[facility] Healthcare System GlenbeighComuniversity of michigan health on above:Performed By: #### SED, CRP, BMP, CDP #### [address] [place], [facility]83 Manager Of Medical: CANDACE Mccannlatelets (Bld) [#/Vol]266 10*3/yTMqjnoh787-260 [facility] GlenbeighComuniversity of mich[facility] health on above:Performed By: #### SED, CRP, BMP, CDP #### [address] [place] [address] Manager Of Medical: Jameson Aaron MDRBC (Bld) [#/Vol]4.68 10*6/uLNormal4.21-5.77Mer Flagstaff HospitalComment on above:Performed By: #### SED, CRP, BMP, CDP #### [facility] [address] [place], [place] 443[address]83 Manager Of Medical: KATHRYN Mccann ([facility]) [#/Vol]10.5 10*3/uLNormal3.5-11.3[facility] Children'S Medical CenterComment on above:Performed By: #### SED, CRP, BMP, CDP #### [facility] [address] [place], [facility]83 Manager Of Medical: BUCK Mccannedimentation Rateon 23-65-4312Ubapauvarzfgt Rate 114 mm/HrHigh0-20A[facility] System GlenbeighComment on above:Performed By: #### EMIGDIO, CRP, BMP, CDP #### [facility] [address] [place], [facility]83 Manager Of Medical: AKIKO Mccann CULTUREon 16-68-3805Aebmhj (Mycology) CultureFinal [facility] HospitalComment on above:Performed By: #### CXFUN ####[facility] Qtcrvcecuq[address] [place], [place] [address]Dr. Eddie Petersonngus StainFinal [facility] HospitalComment on above:Performed By: #### CXFUN ####[facility] [address] [place], [place] [address]Dr. Eddie LernerResult 1CommentSalem City HospitalComment on above:Result Comment: ANNEMARIE/Calcofluor preparation: no fungus observed.Performed By: #### CXFUN ####[facility] [address] [place], [place] [address]Dr. Eddie LernerResult 1Candida albicansAbSt. Mary's Medical CenterComment on above:Performed By: #### CXFUN ####[facility] Ucensdvtbh[address] [place], [place] [address]Dr. Eddie Lazaro OTHER on 53-93-0411PMEDSPX OTHERIsolate 1 Enterococcus faecalis Light growth of ORGANISM 1 Enterococcus faecalis ANTIBIOTIC M.I.C RX STATUS Beta-Lactamase Neg NEG F Benzylpenicillin 0.5 S F Ampicillin <=2 S F Gentamicin High Level (synergy) SYN-R R F Streptomycin High Level (synergy) SYN-S S F Quinupristin/Dalfopristin 4 R F Linezolid 1 S F Vancomycin [address] [facility] CampusComment on above:Performed By: #### OTHCX ####[facility] [address] [place] [address]Dr. Eddie LernerACID FAST SMEAR AND CXon 30-11-9623Spob Fast SmearNegative NormalAdena Health SystemComment on above:Performed By: #### AFB ####[facility] [address] [place] [address]DrMinal LernerAFB Specimen ProcessingTissue [facility] HospitalComun[facility] of [facility] health on above: Performed By: #### AFB ####[facility] [address] [place], [place] [address]DrMinal LernerBNPon 69-42-7070Fvbhnocfnmx peptide B (Bld) [Mass/Vol]648.0 pg/mLNormal<=900.0The St[facility] CampusComment on above: Performed By: #### A1C #### [facility] [address] [place] [address] [address] Eddie Lazaro ANAEROBICon 23-22-9306QIUPSWL ANAEROBICCulture Observations: NO GROWTH OF ANAEROBES AT [address] [facility] CampusComment on above: Performed By: #### ANACX ####[facility] [address] [place], [place] [address]DrVaishali LernerGLYCOHEMOGLOBIN A1Con 83-41-0373LTD RECOMMENDATIONSEE [facility] HospitalComuniversity of michigan health on above:Result Comment: ADA RECOMMENDED LIMIT 4.0 - 6.0 ADA THERAPEUTIC TARGET < 7.0 ACTION SUGGESTED > 7.0Performed By: #### RENAL, LIPID, LIVER, TSH #### [facility] [address] [place] [address] [address] Eddie LernerGlucose [Mass/Vol]235 mg/dLSalem City HospitalComment on above:Performed By: #### RENAL, LIPID, LIVER, TSH #### [facility] [address] [place] [address] [address] Eddie LernerHbA1c (Bld) [Mass fraction]9.8 %Critically high4.5-6.2Adena Health SystemComment on above:Performed By: #### RENAL, LIPID, LIVER, TSH #### [facility] [address] [place] [address] [address] Eddie Newman STAINon 72-07-7923UGNMZKQIIK ORGANISMS OBSERVEDSalem City HospitalComment on above:Performed By: #### GSTAIN ####[facility] [address] [place] [address]Dr. Eddie Lerner DIPHTHEROIDSSalem City HospitalComment on above:Performed By: #### GSTAIN ####[facility] [address] [place] [address]Dr. Yilan ChangEPITHELIALSSalem City HospitalComment on above: Performed By: #### GSTAIN ####[facility] [address] [place], [place] [address]Dr. Yilan ChangFUNGAL ELEMENTSSalem City HospitalComment on above:Performed By: #### GSTAIN ####[facility] [address] [place] [address]Dr. Yilan ChangGRAM NEG BACILLIMcKitrick Hospital HospitalComment on above:Performed By: #### GSTAIN ####[facility] [address] [place] [address]Dr. Yilan ChangGRAM NEG DIPPLOCOCCIMcKitrick Hospital HospitalComment on above: Performed By: #### GSTAIN ####[facility] H[address] [place], [place] [address]Dr. Yilan ChangGRAM POS BACILLIMcKitrick Hospital HospitalComment on above:Performed By: #### GSTAIN ####[facility] [address] [place] [address]Dr. Yiquincy ChangGRAM POSITIVE COCCHolzer Health SystemComment on above:Performed By: #### GSTAIN ####[facility] [address]rlq[address] [place] [address]Dr. Yiquincy ChangGRAM STAIN SOURCELt Foot Zanesville City HospitalComment on above:Performed By: #### GSTAIN ####[facility] [address] [place] [address]Dr. Yilan ChangGS_DIPProtestant Hospital Comment on above:Performed By: #### GSTAIN ####[facility] [address]rx[address]re[address] [place] [address]Dr. Eddie ChangWBCRARENormalAdena Health SystemComment on above:Performed By: #### GSTAIN ####[facility] [address] [place] [address]Dr. Eddie ChangLIPID PROFILE on 28-86-4499EQIT-HDL RATIO NORMSMadison HealthComment on above:Result Comment: 3.3 - 4.4 LOW RISK 4.4 - 7.1 AVERAGE RISK 7.1 - 11.0 MODERATE RISK >11.0 HIGH RISKPerformed By: #### A1C #### [facility] [address] [place] [address] [address] Eddie LernerCholesterol [Mass/Vol]137 mg/dLNormal<=200[facility] Comment on above:Performed By: #### A1C #### [facility] [address] [place] [address] [address] Eddie LernerCholesterol in HDL [Mass/Vol]54 mg/fJFgrhko58-00SimAdena Health SystemComuniversity of michigan health on above:Performed By: #### A1C #### [facility] [address] [place] [address] [address] Eddie LernerCholesterol in LDL [Mass/Vol]63.2 mg/dLSalem City HospitalComuniversity of michigan health on above:Performed By: #### A1C #### [facility] [address] [place] [address] [address] Eddie LernerCholesterol.total/Cholesterol in HDL [Mass ratio]2.5 {ratio} NormalThe St. [facility] CampusComment on above:Performed By: #### A1C #### [facility] [address] [place] [address] [address] Eddie Powell NORMAL> or = 60 mg/dl - LOW CARDIOVASCULAR RISK <40 mg/dl - HIGH CARDIOVASCULAR RISKSalem City HospitalComment on above:Performed By: #### A1C #### [facility] [address] [place] [address] [address] Eddie LernerLDL CALC NORMALSEE BELOWSalem City HospitalComment on above:Result Comment: <100 mg/dl OPTIMAL 100 - 129 mg/dl NEAR OR ABOVE OPTIMAL 130 - 159 mg/dl BORDERLINE HIGH 160 - 189 mg/dl HIGH >190 mg/dl VERY HIGH Performed By: #### A1C #### [facility] [address] [place] [address] [address] Eddie LernerTriglyceride [Mass/Vol]99 mg/dLNormal<=150The [facility] Comment on above:Performed By: #### A1C #### [facility] [address] [place] [address] [address] Eddie AkersLDL CALC19.8 mg/dLNoUniversity Hospitals Samaritan Medical CenterComuniversity of [facility] health on above: Performed By: #### A1C #### [facility] [address] [place] [address] [address] Eddie Kirk PROFILEon 30-94-2103Auzjoht [Mass/Vol]2.8 g/dLCritically low3.4-5.0The St[facility] CampusComment on above:Performed By: #### A1C #### [facility] [address] [place] [address] [address] Eddie LernerAlbumin/Globulin [Mass ratio]0.6 {ratio}NormalThe St. [facility] CampusComment on above:Performed By: #### A1C #### [facility] [address] [place] [address] [address] Eddie WoodP [Catalytic activity/Vol]87 U/VFmdmzo27-479Udr Pauline HospitalComment on above:Performed By: #### A1C #### [facility] [address] [place] [address] [address] Eddie Pagan [Catalytic activity/Vol]49 U/GKajzvg91-65Shy [facility] CampusComment on above:Performed By: #### A1C #### [facility] [address] [place] [address] [address] Eddie Mills [Catalytic activity/Vol]36 U/IEjmsls41-60Vtx [facility] on above:Performed By: #### A1C #### [facility] [address] [place] [address] [address] Eddie WatsonI, CONJUGATED0.1 mg/dLNormal0.0-0.2[facility] Comment on above:Performed By: #### A1C #### [facility] [address] [place] [address] [address] Eddie Watsonirubin [Mass/Vol]0.4 mg/dLNormal0.2-1.0[facility] Comment on above:Performed By: #### A1C #### [facility] [address] [place] [address] [address] Eddie LernerGlobulin (S) [Mass/Vol]4.4 g/dLNormalThe [facility] on above:Performed By: #### A1C #### [facility] [address] [place] [address] [address] Eddie LernerProtein [Mass/Vol]7.2 g/dLNormal6.4-8.2[facility] Comment on above:Performed By: #### A1C #### [facility] [address] [place] [address] [address] Eddie LernerMILLEDGEVILLE OF [facility] GLUCOSEon 85-14-1578Mpiuela [Mass/Vol]107 mg/dL Critically pgkd18-494QqqCleveland Clinic [facility] on above:Performed By: #### POCGLUC #### [facility] [address] [address] [address] Eddie LernerGlucose [Mass/Vol]108 mg/dLCritically [id number] Paul[facility] HospitalComment on above:Performed By: #### POCGLUC ####[facility] [address] [address]Dr[address] Eddie LernerTSHon [id number] uIU/mLNormal0.358-3.740[facility] on above: Performed By: #### A1C #### [facility] [address] [address] [address] Eddie LernerCBC AUTO DIFFon [id number] #0.0 103/ulNormal0.0-0.1The [facility] CampusComment on above:Performed By: #### CBC ####[facility] Qigtyfqqec[address] [place], [place] [address]Dr.Eddie LernerBasophils/100 WBC (Bld)0.4 %Normal0.2-2.0The [facility] on above:Performed By: #### CBC ####[facility] Aclfxjpgpa[address] [place], [place] [address]Dr.Eddie ChangEO #0.2 103/ulNormal0.0-0.7The [facility] CampusComuniversity of [facility] on above:Performed By: #### CBC ####[facility] Zkauffdirz[address] [place], [place] [address]Dr.Eddie ChangEosinophils/100 WBC (Bld)2.0 %Normal 0.9-7.0The [facility] on above:Performed By: #### CBC ####[facility] Gvanhwxt[address] [place], [place] [address]Dr.Eddie Lerner Erythrocyte distribution width (RBC) [Ratio]14.5 %Kfwuvn50.0-15.0The [facility] Hospitalment on above:Performed By: #### CBC ####[facility] Fxivdloarh[address] [place], [place] [address]Dr.Eddie LernerHematocrit (Bld) [Volume fraction]40.5 %Critically low42.0-54.0The [facility] Hospitalment on above:Performed By: #### CBC ####[facility] [address] [address]Dr.Eddie LernerHemoglobin (Bld) [Mass/Vol]13.1 g/dL Critically low14.0-18.0The [facility] CampusComment on above:Performed By: #### CBC ####[facility] Muljsijz[address] [place], [place] [address]Dr. Eddie ChangIG #0.12 10e3/ulCritically high0.00-0.03The [facility] CampusComment on above:Performed By: #### CBC ####[facility] Ifawkurhrm[address] [place], [place] [address]Dr.Eddie ChangIG %1.2 %Critically high0.0-0.5The [facility] CampusComment on above:Performed By: #### CBC ####[facility] Epmwpqmcq[address] [place], [place] [address]Dr.Eddie LernerLYMPH #1.4 103/ulNormal1.2-3.8The [facility] CampusComment on above:Performed By: #### CBC ####[facility] Fgmisvwyau[address] [place], [place] [address]Dr. Eddie LernerLymphocytes/100 WBC (Bld)13.6 %Critically low20.5-60.0The [facility] CampusComment on above:Performed By: #### CBC ####[facility] Emgwtounmq[address] [place], [place] [address]Dr.Eddie LernerMANUAL DIFF REQ NONormalThe St[facility] CampusComment on above:Performed By: #### CBC ####[facility] Ygurtnejid[address] [place], [place] [address]Dr. Eddie LernerMCH (RBC) [Entitic mass]29.8 pgJwnqsq22.9-34.0The [facility] Comment on above:Performed By: #### CBC ####[facility] Eohfmryxjl[address] [place], [place] [address]Dr.Eddie YannMCHC (RBC) [Mass/Vol]32.3 g/dL Daanal83.9-35.2The [facility] CampusComment on above:Performed By: #### CBC ####[facility] [address] [address]Dr. Eddie YannMCV (RBC) [Entitic vol]92.0 kMLouvux85.0-94.0The [facility] Comment on above:Performed By: #### CBC ####[facility] [address] [address]Dr.Eddie LernerMONO #0.5 103/ulNormal0.3-0.[address] [facility] CampusComment on above:Performed By: #### CBC ####[facility] Qcgozovafw[address] [place], [place] [address]Dr.Dainaquincy Lerner Monocytes/100 WBC (Bld)4.8 %Normal1.7-12.0The [facility] CampusComment on above: Performed By: #### CBC ####[facility] Vivznanvnn[address] [place], [place] [address]Dr.Eddei LernerNEUT #8.1 103/ulCritically high1.4-6.[address] [facility] CampusComment on above:Performed By: #### CBC ####[facility] Ezniwwyfer[address] [place], [place] [address]Dr.Dainaquincy Lerner Neutrophils/100 WBC (Bld)78.0 %Critically high43.0-75.0The [facility] Comment on above:Performed By: #### CBC ####[facility] Dwmguofqzl[address] [place], [place] [address]Dr.Dainaquincy LernerPlatelet mean volume (Bld) [Entitic vol]8.6 fLCritically low9.5-13.5The [facility] CampusComment on above: Performed By: #### CBC ####[facility] Xlfwpauabx[address] [place], [place] [address]Dr.Eddie LernerPLT240 103/imZiufzb098-692Gbp [facility] CampusComment on above:Performed By: #### CBC ####[facility] Cqgsfaplnj[address] [place], [place] [address]Dr.Eddie LernerRBC4.40 106/ul Critically low4.70-6.10The [facility] CampusComment on above:Performed By: #### CBC ####[facility] [address] [address]Dr. Eddie LernerWBC10.3 103/ulNormal4.0-11.0The [facility] CampusComment on above: Performed By: #### CBC ####[facility] [address] [address]Dr.Yilan LernerCRPon [id number] [Mass/Vol]mg/LNormal <=1.0The [facility] CampusComment on above:Performed By: #### A1C #### [facility] [address] [address] [address] Eddie LernerPROF CHEM 8 (BAS METB)on 49-44-5854Wthon gap [Moles/Vol]14.4 mmol/LNormalThe St[facility] CampusComment on above:Performed By: #### A1C #### [facility] [address] [address] [address] Eddie LernerCalcium [Mass/Vol]9.2 mg/dLNormal8.5-10.1The [facility] Comment on above:Performed By: #### A1C #### [facility] [address] [address] [address] Eddie LernerChloride [Moles/Vol]101 mmol/VLcbbtx93-194Sni [facility] Comment on above:Performed By: #### A1C #### [facility] [address] [address] [address] Eddie LernerCO2 [Moles/Vol]25.2 mmol/TJkyera79.0-32.0The [facility] Comment on above:Performed By: #### A1C #### [facility] [address] [address] [address] Eddie LernerCreatinine [Mass/Vol]3.07 mg/dLCritically high0.70-1.30The [facility] CampusComment on above:Performed By: #### A1C #### [facility] [address] [address] [address] Morgan ChangEGFR-AF DGNJJYPQ93 mL/min/1.37w4Xtqlytyhmi low>=60The [facility] CampusComment on above:Performed By: #### A1C #### [facility] [address] [address] [address] Eddie OzunaGFR-NON AF YBFTSBHS55 mL/min/1.82i6Malcinknmw low>=60The [facility] CampusComment on above:Performed By: #### A1C #### [facility] [address] [address] [address] Eddie LernerGlucose [Mass/Vol]415 mg/dLCritically sugq87-324Qsa [facility] CampusComment on above:Performed By: #### A1C #### [facility] [address] [address] [address] Eddie LernerPotassium [Moles/Vol]5.6 mmol/LCritically high3.5-5.1The [facility] CampusComment on above:Performed By: #### A1C #### [facility] [address] [place] [address] Dr. Eddie LernerSodium [Moles/Vol]135 mmol/LCritically rcc849-047Ord [facility] CampusComment on above:Performed By: #### A1C #### [facility] [address] [place] [address] Dr. Eddie LernerUrea nitrogen [Mass/Vol]34.0 mg/dLCritically high7.0-18.0The [facility] CampusComment on above:Performed By: #### A1C #### [facility] [address] [place] [address] Dr. Eddie Llanes nitrogen/Creatinine [Mass ratio]11.1 mg/mgNormalThe St. [facility] CampusComment on above:Performed By: #### A1C #### [facility] [address] [address] [address] Eddie Ivan RATE WESTERGRENon [id number] RATE59 mm/hrCritically high <=20The [facility] CampusComment on above:Performed By: #### SEDR ####[facility] [address] [address]Dr. Eddie Graff [id number] peptide B (Bld) [Mass/Vol]1342.0 pg/mLCritically high <=900.0The [facility] CampusComment on above:Performed By: #### BNP ####[facility] [address] [address]Dr.Yilan Montenegro AUTO DIFFon 89-39-6391IDCP #0.1 103/ulNormal0.0-0.1The [facility] CampusComment on above:Performed By: #### A1C #### [facility] [address] [address] [address] Eddie LernerBasophils/100 WBC (Bld)0.6 %Normal0.2-2.0The [facility] Comment on above:Performed By: #### A1C #### [facility] [address] [place] [address] Dr. Eddie Wheeler #0.2 103/ulNormal0.0-0.7The [facility] CampusComment on above: Performed By: #### A1C #### [facility] [address] [address] [address] Eddie Ozunaosinophils/100 WBC (Bld)1.8 %Normal0.9-7.0The [facility] Comment on above:Performed By: #### A1C #### [facility] [address] [address] [address] Eddie Ozunarythrocyte distribution width (RBC) [Ratio]15.2 %Critically high 11.0-15.0The [facility]Comment on above:Performed By: #### A1C #### [facility] [address] [place] [address] Dr. Eddie LerenrHematocrit (Bld) [Volume fraction]39.0 %Critically low42.0-54.[address] [facility]Comment on above:Performed By: #### A1C #### [facility] [address] [place] [address] Dr. Eddie LernerHemoglobin (Bld) [Mass/Vol]12.4 g/dLCritically low14.0-18.0The [facility] CampusComment on above:Performed By: #### A1C #### [facility] [address] [address] [address] Eddie Lowe #0.21 10e3/ulCritically high0.00-0.03The [facility] Comment on above:Performed By: #### A1C #### [facility] [address] [address] [address] Eddie Lowe %1.6 %Critically high0.0-0.5The [facility] CampusComment on above:Performed By: #### A1C #### [facility] [address] [place] [address] Dr. Eddie Polanco #1.9 103/ulNormal1.2-3.8The [facility]Comment on above:Performed By: #### A1C #### [facility] [address] [place] [address] Dr. Eddie Moranhocytes/100 WBC (Bld)13.8 %Critically low20.5-60.0The [facility]Comment on above:Performed By: #### A1C #### [facility] [address] [place] [address] Dr. Eddie SullivanUAL DIFF REQNONormalThe St[facility]Comment on above: Performed By: #### A1C #### [facility] [address] [address] [address] Eddie Irving (RBC) [Entitic mass]27.8 fwViahms91.9-34.0The [facility]Comment on above:Performed By: #### A1C #### [facility] [address] [address] [address] Eddie Irving (RBC) [Mass/Vol]31.8 g/uBEzlmxu38.9-35.2The [facility]Comment on above:Performed By: #### A1C #### [facility] [address] [place] [address] Dr. Eddie Irving (RBC) [Entitic vol]87.4 dHVlrcpn51.0-94.0The [facility]Comment on above:Performed By: #### A1C #### [facility] [address] [place] [address] Dr. Eddie Morton #0.8 103/ulNormal0.3-0.8The [facility]Comment on above:Performed By: #### A1C #### [facility] [address] [place] [address] Dr. Eddie Williamsonocytes/100 WBC (Bld)5.9 %Normal1.7-12.0[facility] Comment on above:Performed By: #### A1C #### [facility] [address] [place] [address] Dr. Eddie Warner #10.3 103/ulCritically high1.4-6.5The [facility] Comment on above:Performed By: #### A1C #### [facility] [address] [place] [address] Dr. Eddie Menjivarutrophils/100 WBC (Bld)76.3 %Critically high43.0-75.0The [facility]Comment on above:Performed By: #### A1C #### [facility] [address] [place] [address] Dr. Eddie Perez mean volume (Bld) [Entitic vol]10.2 fLNormal9.5-13.5The [facility] CampusComment on above:Performed By: #### A1C #### [facility] [address] [place] [address] Dr. Eddie LernerPLT288 103/jhZsbwah941-480Mkj [facility] CampusComment on above: Performed By: #### A1C #### [facility] [address] [place] [address] Dr. Eddie LernerRBC4.46 106/ulCritically low4.70-6.10The [facility]Comment on above:Performed By: #### A1C #### [facility] [address] [place] [address] Dr. Eddie LernerWBC13.5 103/ulCritically high4.0-11.0[facility] on above:Performed By: #### A1C #### [facility] [address] [address] [address] Eddie LernerGLYCOHEMOGLOBIN A1Con [id number] RECOMMENDATIONSEE BELOWNoGalion HospitalComment on above:Result Comment: ADA RECOMMENDED LIMIT 4.0 - 6.0 ADA THERAPEUTIC TARGET < 7.0 ACTION SUGGESTED > 7.0Performed By: #### A1C #### [facility] [address] [place] [address] Dr. Eddie LernerGlucose [Mass/Vol]283 mg/dLNoUniversity Hospitals Samaritan Medical CenterComment on above:Performed By: #### A1C #### [facility] [address] [place] [address] Dr. Eddie LernerHbA1c (Bld) [Mass fraction]11.5 %Critically high4.5-6.2The [facility] CampusComment on above:Performed By: #### A1C #### [facility] [address] [place] [address] Dr. Eddie LernerLIPID PROFILEon [id number]-HDL RATIO NORMSEE [facility] HospitalComment on above:Result Comment: 3.3 - 4.4 LOW RISK 4.4 - 7.1 AVERAGE RISK 7.1 - 11.0 MODERATE RISK >11.0 HIGH RISKPerformed By: #### RENAL, LIPID, LIVER, TSH #### [facility] [address] [place] [address] Dr. Eddie LernerCholesterol [Mass/Vol]152 mg/dLNormal<=200The [facility] Comment on above:Performed By: #### RENAL, LIPID, LIVER, TSH #### [facility] [address] [place] [address] Dr. Eddie LernerCholesterol in HDL [Mass/Vol]51 mg/uITacydl51-34Nle [facility] CampusComment on above:Performed By: #### RENAL, LIPID, LIVER, TSH #### [facility] [address] [place] [address] Dr. Eddie Hernandezesterol in LDL [Mass/Vol]61.0 mg/dLGenesis Hospitalment on above:Performed By: #### RENAL, LIPID, LIVER, TSH #### [facility] [address] [place] [address] Dr. Eddie Hazel.total/Cholesterol in HDL [Mass ratio]3.0 {ratio} NormalThe St. [facility] CampusComun[facility] on above:Performed By: #### RENAL, LIPID, LIVER, TSH #### [facility] [address] [place] [address] Dr. Eddie Powell NORMAL> or = 60 mg/dl - LOW CARDIOVASCULAR RISK <40 mg/dl - HIGH CARDIOVASCULAR RISKSalem City HospitalComment on above:Performed By: #### RENAL, LIPID, LIVER, TSH #### [facility] [address] [place] [address] Dr. Eddie Zheng CALC NORMALSEE BELOWSalem City HospitalComment on above:Result Comment: <100 mg/dl OPTIMAL 100 - 129 mg/dl NEAR OR ABOVE OPTIMAL 130 - 159 mg/dl BORDERLINE HIGH 160 - 189 mg/dl HIGH >190 mg/dl VERY HIGH Performed By: #### RENAL, LIPID, LIVER, TSH #### [facility] [address] [place] [address] Dr. Eddie LernerTriglyceride [Mass/Vol]200 mg/dLCritically high<=150The [facility] on above:Performed By: #### RENAL, LIPID, LIVER, TSH #### [facility] [address] [place] [address] Dr. Eddie AkersLDL CALC40.0 mg/dLSalem City HospitalComuniversity of [facility] health on above: Performed By: #### RENAL, LIPID, LIVER, TSH #### [facility] [address] [place] [address] Dr. Eddie Kirk PROFILEon [id number] [Mass/Vol]2.6 g/dLCritically low3.4-5.0The [facility] CampusComun[facility] on above:Performed By: #### RENAL, LIPID, LIVER, TSH #### [facility] [address] [address] [address] Eddie LernerAlbumin/Globulin [Mass ratio]0.6 {ratio}NormalThe [facility] Hospitalment on above:Performed By: #### RENAL, LIPID, LIVER, TSH #### [facility] [address] [address] [address] Eddie Bower [Catalytic activity/Vol]120 U/LCritically amit24-609Ije [facility] Hospitalment on above:Performed By: #### RENAL, LIPID, LIVER, TSH #### [facility] [address] [address] [address] Eddie Pagan [Catalytic activity/Vol]22 U/FHlgdia21-18Ogj [facility] Hospitalment on above:Performed By: #### RENAL, LIPID, LIVER, TSH #### [facility] [address] [address] [address] Eddie LernerAST [Catalytic activity/Vol]15 U/YWfbdtc42-59Nmh [facility] CampusComment on above:Performed By: #### RENAL, LIPID, LIVER, TSH #### [facility] [address] [address] [address] Eddie Pandey, CONJUGATED0.1 mg/dLNormal0.0-0.2The [facility] Comment on above:Performed By: #### RENAL, LIPID, LIVER, TSH #### [facility] [address] [address] [address] Eddie Watsonirubin [Mass/Vol]0.3 mg/dLNormal0.2-1.0The [facility] Comment on above:Performed By: #### RENAL, LIPID, LIVER, TSH #### [facility] [address] [address] [address] Eddie LernerGlobulin (S) [Mass/Vol]4.7 g/dLNormalThe [facility] CampusComment on above:Performed By: #### RENAL, LIPID, LIVER, TSH #### [facility] [address] [address] [address] Eddie LernerProtein [Mass/Vol]7.3 g/dLNormal6.4-8.2The [facility] Comment on above:Performed By: #### RENAL, LIPID, LIVER, TSH #### [facility] [address] [address] [address] Eddie BrinkAL FUNCTION PANELon [id number] [Mass/Vol]9.0 mg/dL Normal8.5-10.1The [facility] CampusComment on above:Performed By: #### RENAL, LIPID, LIVER, TSH #### [facility] [address] [address] [address] Eddie LernerChloride [Moles/Vol]96 mmol/LCritically pee81-988Aqo [facility] CampusComment on above:Performed By: #### RENAL, LIPID, LIVER, TSH #### [facility] [address] [address] [address] Eddie LernerCO2 [Moles/Vol]21.8 mmol/TNsnfoe76.0-32.0The [facility] Comment on above:Performed By: #### RENAL, LIPID, LIVER, TSH #### [facility] [address] [address] [address] Eddie LernerCreatinine [Mass/Vol]2.38 mg/dLCritically high0.70-1.30The [facility] CampusComment on above:Performed By: #### RENAL, LIPID, LIVER, TSH #### [facility] [address] [address] [address] Morgan ChangEGFR-AF HPKDHVDL29 mL/min/1.85u9Lqsxdibzrc low>=60The [facility] CampusComment on above:Performed By: #### RENAL, LIPID, LIVER, TSH #### [facility] [address] [address] [address] Morgan ChangEGFR-NON AF NKBAZMPH10 mL/min/1.54n6Maervcnkcu low>=60The [facility] CampusComment on above:Performed By: #### RENAL, LIPID, LIVER, TSH #### [facility] [address] [address] [address] Eddie LernerGlucose [Mass/Vol]523 mg/dLCritically zclu84-621Ayg [facility] CampusComment on above:Performed By: #### RENAL, LIPID, LIVER, TSH #### [facility] [address] [address] [address] Eddie LernerPhosphate [Mass/Vol]4.1 mg/dLNormal2.6-4.7The [facility] Comment on above:Performed By: #### RENAL, LIPID, LIVER, TSH #### [facility] [address] [address] [address] Eddie LernerPotassium [Moles/Vol]4.6 mmol/LNormal3.5-5.1The [facility] Comment on above:Performed By: #### RENAL, LIPID, LIVER, TSH #### [facility] [address] [place] [address] Dr. Eddie LernerSodium [Moles/Vol]128 mmol/LCritically paz543-682Cdx [facility] CampusComment on above:Performed By: #### RENAL, LIPID, LIVER, TSH #### [facility] [address] [place] [address] Dr. Eddie Llanes nitrogen [Mass/Vol]28.0 mg/dLCritically high7.0-18.0The [facility] CampusComment on above:Performed By: #### RENAL, LIPID, LIVER, TSH #### [facility] [address] [place] [address] Dr. Eddie Summers 59-69-7666RFF3.308 uIU/mLNormal0.358-3.740The [facility] CampusComment on above:Performed By: #### RENAL, LIPID, LIVER, TSH #### [facility] [address] [place] [address] Dr. Eddie Max 59-23-9563Ucfreimbd Ql (U)NegativeNormalNEGATIVEThe St. [facility] CampusComment on above:Performed By: #### UA #### [facility] [address] [place] [address] Dr. Eddie LernerClarity (U)CLEARNormalCLEARThe St[facility] CampusComment on above: Performed By: #### UA #### [facility] [address] [address] [address] Eddie Espinallor (U)LT. YELLOWNormalYELLOWAdena Health SystemComment on above:Performed By: #### UA #### [facility] [address] [address] [address] Eddie LernerGlucose Ql (U)>1000AbnormalNEGATIVEThe St[facility] CampusComment on above:Performed By: #### UA #### [facility] [address] [place] [address] Dr. Eddie LernerHemoglobin Ql (U)TRACE-INTACTAbnormalNEGATIVEAdena Health SystemComment on above:Performed By: #### UA #### [facility] [address] [place] [address] Dr. Eddie Mcknightones Ql (U)NegativeNormalNEGATIVEAdena Health SystemComment on above:Performed By: #### UA #### [facility] [address] [address] [address] Eddie LernerLEUKOCYTESNegativeNormalNEGATIVEAdena Health SystemComment on above:Performed By: #### UA #### [facility] [address] [place] [address] Dr. Eddie LernerNitrite Ql (U)NegativeNormalNEGATIVEAdena Health SystemComment on above:Performed By: #### UA #### [facility] [address] [place] [address] Dr. Eddie LernerpH (U)6.5 [pH]Normal5-9The [facility] CampusComment on above: Performed By: #### UA #### [facility] [address] [address] [address] Eddie LernerSPEC GRAVITY1.884Yvwilc3.005-<=1.025The [facility] CampusComment on above:Performed By: #### UA #### [facility] [address] [place] [address] Dr. Eddie Marino OGFLCBJ776 mg/dlAbnormalNEGATIVE/ TRACEThe [facility] Comment on above:Performed By: #### UA #### [facility] [address] [place] [address] Dr. Eddie Morgan Qn (U)0.2 {Chaya'U}/dLNormal0.2 - 1.0Adena Health SystemComment on above:Performed By: #### UA #### [facility] [address] [address] [address] Eddie LernerVITAMIN D 25 OHon 17-90-6487HMQ D 25-OH13.9 ng/mLNormalThe St. [facility] CampusComment on above:Performed By: #### VITAD ####[facility] [address] [place], [place] [address]Dr. Eddie LernerVIT D RANGES SEE Mercy Health Willard HospitalComment on above:Result Comment: <20 ng/mL Vit D deficient 20 - <30 ng/mL Vit D insufficient 30 - 100 ng/mL Vit D sufficient >100 ng/mL Potential ToxicityPerformed By: #### VITAD ####[facility] N[address] [place], [place] [address]Dr. Eddie LernerACID FAST SMEAR AND CXon 59-58-9829Kwua Fast CultureNegativeSalem City HospitalComment on above:Result Comment: No acid fast bacilli isolated after 6 weeks.Performed By: #### AFB ####[facility] [address] [place], [place] [address]Dr.Eddie LenrerAcid Fast SmearNegativeSalem City HospitalComment on above:Performed By: #### AFB ####[facility] [address] [place], [place] [address]Dr.Eddie LernerAFB Specimen ProcessingTissue GrOhioHealth Pickerington Methodist HospitalComuniversity of [facility] health on above:Performed By: #### AFB ####[facility] Xlesindm[address] [place], [place] [address]Dr.Eddie LernerFUNGAL CULTUREon 42-16-8337Afjgaf (Mycology) CultureFinal reportNoUniversity Hospitals Samaritan Medical CenterComment on above:Performed By: #### RENAL, LIPID, LIVER, TSH #### [facility] [address] [address] [address] Eddie Walker StainFinal reportSalem City HospitalComment on above:Performed By: #### RENAL, LIPID, LIVER, TSH #### [facility] [address] [address] [address] Eddie Sutton 1CommentSalem City HospitalComment on above:Result Comment: ANNEMARIE/Calcofluor preparation: no fungus observed.Performed By: #### RENAL, LIPID, LIVER, TSH #### [facility] [address] [address] [address] Eddie Sutton Comment: No yeast or mold isolated after 4 weeks.POINT OF CARE GLUCOSEon 70-18-4875Pxezkvz [Mass/Vol]177 mg/dLCritically para30-573Cbt [facility] CampusComment on above:Performed By: #### A1C #### [facility] [address] [address] [address] Eddie LernerGlucose [Mass/Vol]200 mg/dLCritically sopx78-202EenAdena Health SystemComment on above:Performed By: #### POCGLUC ####[facility] [address] [address]Dr. Eddie LernerCovid-19 PCR (CVDMIRAVISTA BEHAV[facility]AL [facility])on 34-06-6246RGHN-CoV-2 (COVID-19) RNA SUDHA+probe Ql (Unsp spec)Not detectedNormalNOT DETECTEDThe [facility] on above:Result Comment: This test is not yet approved or cleared by the [place] FDA. When there are no FDA-approved or cleared tests available, and other criteria are met, FDA can make tests available under an emergency access mechanism called an Emergency Use Authorization (EUA). The EUA for this test is supported by the San[place] Inspector of Health and Human Service's (HHS's) declaration [...] consistent with SARS-CoV-2.Performed By: #### A1C #### [facility] [address] [place] [address] Dr. Eddie LernerPROF CHEM 8 (BAS METB)on 01-57-0075Yfaoq gap [Moles/Vol]15.0 mmol/LNormalAdena Health SystemComment on above:Performed By: #### RENAL, LIPID, LIVER, TSH #### [facility] [address] [place] [address] Dr. Eddie LernerCalcium [Mass/Vol]9.3 mg/dLNormal8.5-10.1[facility] Comment on above:Performed By: #### RENAL, LIPID, LIVER, TSH #### [facility] [address] [place] [address] Dr. Eddie LernerChloride [Moles/Vol]105 mmol/PEnyuaz96-720WsjAdena Health System Comment on above:Performed By: #### RENAL, LIPID, LIVER, TSH #### [facility] [address] [place] [address] Dr. Eddie LernerCO2 [Moles/Vol]22.1 mmol/VFxoluh70.0-32.0[facility] Comment on above:Performed By: #### RENAL, LIPID, LIVER, TSH #### [facility] [address] [place] [address] Dr. Eddie LernerCreatinine [Mass/Vol]2.29 mg/dLCritically high0.70-1.30The [facility] CampusComment on above:Performed By: #### RENAL, LIPID, LIVER, TSH #### [facility] [address] [place] [address] Dr. Morgan ChangEGFR-AF RDXDRSMC52 mL/min/1.66g2Jbqtppgrcu low>=60The [facility] CampusComment on above:Performed By: #### RENAL, LIPID, LIVER, TSH #### [facility] [address] [address] [address] Morgan ChangEGFR-NON AF PLKUAFHO47 mL/min/1.26q7Jpukicjfpz low>=60The [facility] CampusComment on above:Performed By: #### RENAL, LIPID, LIVER, TSH #### [facility] [address] [address] [address] Eddie LernerGlucose [Mass/Vol]115 mg/dLCritically slne92-971Oen [facility] CampusComment on above:Performed By: #### RENAL, LIPID, LIVER, TSH #### [facility] [address] [address] [address] Eddie LernerPotassium [Moles/Vol]5.1 mmol/LNormal3.5-5.1[facility] Comment on above:Performed By: #### RENAL, LIPID, LIVER, TSH #### [facility] [address] [address] [address] Eddie LernerSodium [Moles/Vol]137 mmol/MAwrglm272-669Kba [facility] Comment on above:Performed By: #### RENAL, LIPID, LIVER, TSH #### [facility] [address] [address] [address] Eddie LernerUrea nitrogen [Mass/Vol]26.0 mg/dLCritically high7.0-18.0The [facility] CampusComment on above:Performed By: #### RENAL, LIPID, LIVER, TSH #### [facility] [address] [address] [address] Eddie Llanes nitrogen/Creatinine [Mass ratio]11.4 mg/mgNoUniversity Hospitals Samaritan Medical CenterComment on above:Performed By: #### RENAL, LIPID, LIVER, TSH #### [facility] [address] [address] [address] Eddie Stover CULTUREon 12-90-7620Hlkbiisak Culture, Extended Incubation Final reportNoUniversity Hospitals Samaritan Medical CenterComment on above:Performed By: #### CXTISSU ####[facility] [address] [address]Dr. Eddie Sutton [address] [place], [place] [address]Comment on above: Result Comment: Diphtheroids, not Corynebacterium jeikeium Light growth Susceptibility not normally performed on this organism.Performed By: #### CXTISSU ####[facility] [address] [id number]. Eddie Hilarioult Comment: No anaerobes recovered.Tissue CultureFinal reportWadsworth-Rittman HospitalComment on above:Performed By: #### CXTISSU ####[facility] [address] [address]Dr. Eddie LernerEFFINGHAM HOSPITAL GLUCOSEon 61-98-3891Pnhunmj [Mass/Vol]89 mg/dLNormal 74-106Adena Health SystemComment on above:Performed By: #### RENAL, LIPID, LIVER, TSH #### [facility] [address] [address] [address] Eddie LernerGlucose [Mass/Vol]85 mg/hERpuxcn16-368IvdAdena Health System Comment on above:Performed By: #### POCGLUC ####[facility] [address] [address]Dr. Eddie Newman STAINon 12-21-2021 COMMENTSNO [facility] HospitalComuniversity of [facility] health on above: Performed By: #### RENAL, LIPID, LIVER, TSH #### [facility] [address] [address] [address] Eddie OliveraPHTHEROIDSSalem City HospitalComment on above:Performed By: #### RENAL, LIPID, LIVER, TSH #### [facility] [address] [address] [address] Eddie ClaytonALSSalem City HospitalComuniversity of michigan health on above:Performed By: #### RENAL, LIPID, LIVER, TSH #### [facility] [address] [address] [address] Eddie Slaughter ELEMENTSSalem City HospitalComment on above: Performed By: #### RENAL, LIPID, LIVER, TSH #### [facility] [address] [address] [address] Eddie Newman NEG BACILLISalem City HospitalComment on above: Performed By: #### RENAL, LIPID, LIVER, TSH #### [facility] [address] [address] [address] Eddie Newman NEG DIPPLOCOCCISalem City HospitalComuniversity of mich[facility] health on above: Performed By: #### RENAL, LIPID, LIVER, TSH #### [facility] [address] [address] [address] Eddie Newman POS BACILLISalem City HospitalComuniversity of michigan health on above: Performed By: #### RENAL, LIPID, LIVER, TSH #### [facility] [address] [address] [address] Eddie Newman POSITIVE COCCINoUniversity Hospitals Samaritan Medical CenterComment on above: Performed By: #### RENAL, LIPID, LIVER, TSH #### [facility] [address] [address] [address] Eddie Newman STAIN SOURCELt 1st Metatarsal BoneSalem City HospitalComment on above:Performed By: #### RENAL, LIPID, LIVER, TSH #### [facility] [address] [address] [address] Eddie Morales_DIPTHSalem City HospitalComuniversity of michigan health on above:Performed By: #### RENAL, LIPID, LIVER, TSH #### [facility] [address] [address] [address] Eddie MorleyBCRARENormalAdena Health SystemComuniversity of michigan health on above:Performed By: #### RENAL, LIPID, LIVER, TSH #### [facility] [address] [address] [address] Eddie LernerEFFINGHAM HOSPITAL GLUCOSEon 86-38-7059Rkcdkpp [Mass/Vol]148 mg/dL Critically jxyx88-952VxaAdena Health SystemComment on above:Performed By: #### A1C #### [facility] [address] [address] [address] Eddie LernerGlucose [Mass/Vol]100 mg/zDSndech73-667[facility] Comment on above:Performed By: #### POCGLUC ####[facility] [address] [place], [place] [address]Yc. Eddie ChangGlucose [Mass/Vol]85 mg/dL Qagqek49-138ZbeAdena Health SystemComment on above:Performed By: #### POCGLUC ####[facility] [address] [place], [place] [address]Xj. Eddie ChangGlucose [Mass/Vol]83 mg/cYPffkhn50-349BphAdena Health SystemComment on above:Performed By: #### RENAL, LIPID, LIVER, TSH #### [facility] [address] [place], [place] [address] Dr. Eddie LernerCovid-19 PCR (CVDTB)on 87-04-1104OQIS-CoV-2 (COVID-19) RNA SUDHA+probe Ql (Unsp spec)Not detectedNormalNOT DETECTEDAdena Health System Comment on above:Result Comment: This test is not yet approved or cleared by the [place] FDA. When there are no FDA-approved or cleared tests available, and other criteria are met, FDA can make tests available under an emergency access mechanism called an Emergency Use Authorization (EUA). The EUA for this test is supported by the [place] of Health and Human Service's (HHS's) declaration [...] symptoms consistent with SARS-CoV-2.Performed By: #### CVDTBH ####[facility] [address] [place], [place] [address]WgVaishali LernerPROF CHEM 8 (BAS METB)on 49-52-5374Jgxyx gap [Moles/Vol]11.5 mmol/LNormalAdena Health SystemComment on above:Performed By: #### RENAL, LIPID, LIVER, TSH #### [facility] [address] [address] [address] Eddie LernerCalcium [Mass/Vol]9.0 mg/dLNormal8.5-10.1[facility] Comment on above:Performed By: #### RENAL, LIPID, LIVER, TSH #### [facility] [address] [address] [address] Eddie LernerChloride [Moles/Vol]102 mmol/DPhbpum50-576Dcf [facility] Comment on above:Performed By: #### RENAL, LIPID, LIVER, TSH #### [facility] [address] [address] [address] Eddie LernerCO2 [Moles/Vol]24.8 mmol/OMcxphq29.0-32.0[facility] Comment on above:Performed By: #### RENAL, LIPID, LIVER, TSH #### [facility] [address] [place] [address] Dr. Eddie LernerCreatinine [Mass/Vol]2.19 mg/dLCritically high0.70-1.30The [facility] CampusComment on above:Performed By: #### RENAL, LIPID, LIVER, TSH #### [facility] [address] [place] [address] Dr. Morgan ChangEGFR-AF ZSWNXNME54 mL/min/1.97p7Aeazkfisvs low>=60The [facility] CampusComment on above:Performed By: #### RENAL, LIPID, LIVER, TSH #### [facility] [address] [place] [address] Dr. Morgan ChangEGFR-NON AF MRCULRVD82 mL/min/1.69p4Hyhtemrvit low>=60The [facility] CampusComment on above:Performed By: #### RENAL, LIPID, LIVER, TSH #### [facility] [address] [place] [address] Dr. Eddie LernerGlucose [Mass/Vol]330 mg/dLCritically wwcz92-810Qko [facility] CampusComment on above:Performed By: #### RENAL, LIPID, LIVER, TSH #### [facility] [address] [address] [address] Eddie LernerPotassium [Moles/Vol]5.3 mmol/LCritically high3.5-5.1The [facility] CampusComment on above:Performed By: #### RENAL, LIPID, LIVER, TSH #### [facility] [address] [address] [address] Eddie LernerSodium [Moles/Vol]133 mmol/LCritically rzm581-132Nqi [facility] CampusComment on above:Performed By: #### RENAL, LIPID, LIVER, TSH #### [facility] [address] [address] [address] Eddie LernerUrea nitrogen [Mass/Vol]25.0 mg/dLCritically high7.0-18.0The [facility] CampusComment on above:Performed By: #### RENAL, LIPID, LIVER, TSH #### [facility] [address] [address] [address] Eddie Llanes nitrogen/Creatinine [Mass ratio]11.4 mg/mgNormalThe St[facility] CampusComment on above:Performed By: #### RENAL, LIPID, LIVER, TSH #### [facility] [address] [address] [address] Eddie LrenerAlbumin [Mass/volume] in Serum or Plasmaon 02-17-1038Eqghoqj [Mass/Vol]2.0 g/dL3.2-5.5FThe [facility] CtrBasophils Auto (Bld) [#/Vol]on 98-38-6219Lzwbpckka (Bld) [#/Vol]0.0 10*3/uL0.0-0.2FThe [facility] CtrBasophils/100 WBC Auto (Bld)on 18-95-1898Wpgcoqoli/100 WBC (Bld)0.1 % [facility] CtrBlood anisocytosis detectionon 08-25-2020 Anisocytosis Ql (Bld)SlightTrinity Health System [facility] CtrBlood hemoglobin measurement (mass/volume)on 65-80-1759Jyfzitewcd (Bld) [Mass/Vol]10.1 g/dL 13.0-17.0[facility] CtrBlood leukocytes automated count (number/volume)on 35-31-8040QVH (Bld) [#/Vol]12.6 10*3/uL4.5-11.0[facility] CtrBlood polychromasia detection by light microscopyon 02-61-8083Cmhmoodwclpsa LM Ql (Bld)SlightTrinity Health System [facility] Ctr Creatinine and Glomerular filtration rate.predicted panel (S/P/Bld)on 08-25-2020 Creatinine [Mass/Vol]4.06 mg/dL0.64-1.27[facility] Ctr Eosinophils Auto (Bld) [#/Vol]on 41-01-1008Istjkoqehwq (Bld) [#/Vol]0.0 10*3/uL 0.0-0.45[facility] CtrEosinophils/100 WBC Auto (Bld)on 55-60-3057Jzglsavctpg/100 WBC (Bld)0.1 %[facility] Ctr Erythrocyte distribution width Auto (RBC) [Ratio]on 90-12-7476Agodqcfjczj distribution width (RBC) [Ratio]16.6 %12.0-14.8[facility] Ctr Estimated glomerular filtration rate (GFR) non- Americanon 08-25-2020 GFR/1.73 sq M.predicted among non-blacks MDRD (S/P/Bld) [Vol rate/Area]15 mL/Min [facility] CtrGlucose Glucometer (BldC) [Mass/Vol]on 08-25-2020 Glucose [Mass/Vol]122 mg/dLTrinity Health System [facility] CtrComment on above:Random Glucose Reference Range is dependent on time and content of last meal. Glucose of more than 200 mg/dL in a nonstressed, ambulatory subject supports the diagnosis of Diabetes Mellitus.Hematocrit Auto (Bld) [Volume fraction]on 73-00-2207Plmtxbsgxm (Bld) [Volume fraction]31.7 %38.8-50.0[facility] CtrLaboratory - Hematology and Cell countson 91-03-2677Svfbchbdr RBC/100 WBC (Bld) [Ratio]0.2 %0-0.5FThe [facility] CtrLymphocytes Auto (Bld) [#/Vol]on 22-93-4072Pvnflrdliku (Bld) [#/Vol]1.1 10*3/uL1.00-4.8[facility] CtrLymphocytes/100 WBC Auto (Bld)on 99-82-4025Gszftmhqrlf/100 WBC (Bld)8.9 %[facility] CtrMCH Auto (RBC) [Entitic mass]on 32-92-8784WRW (RBC) [Entitic mass]26.2 pg27.5-35.2FSt. Mary's Medical Center MCHC Auto (RBC) [Mass/Vol]on 56-41-6114QNIP (RBC) [Mass/Vol]31.9 g/dL32.5-35.[address] Charles HospitalMCV Auto (RBC) [Entitic vol]on 81-31-8280PLE (RBC) [Entitic vol]82.3 fL83.5-101[facility] CtrMonocytes Auto (Bld) [#/Vol]on 20-15-3262Xmxvxrnph (Bld) [#/Vol]1.2 10*3/uL0.0-0.8[facility] CtrMonocytes/100 WBC Auto (Bld)on 73-43-6443Wdwycgmge/100 WBC (Bld)9.6 % [facility] CtrNeutrophils Auto (Bld) [#/Vol]on 08-25-2020 Neutrophils (Bld) [#/Vol]10.2 10*3/uL1.8-7.7FThe [facility] Ctr Neutrophils/100 WBC Auto (Bld)on 01-41-7253Zpoflzttrlr/100 WBC (Bld)81.3 % [facility] CtrNo Panel Informationon 47-07-3248Pauxgyt Glucose CommentGlu2: cleaned meterTrinity Health System [facility] CtrEstimated GFR ()18 mL/MinTrinity Health System [facility] CtrComment on above:GFR estimated reference range: According to KDOQI guidelines, <60 ml/min/1.73m2 is sufficient todiagnose a patient with chronic kidney disease.Pharmacy Creatinine Clearance (Chem31.84[facility] CtrPlatelet EstimateNormalNormalTr[facility] CtrPlatelet Morphology CommentNormalNormalTr[facility] CtrPhosphate [Mass/volume] in Serum or Plasmaon 37-67-4771Ovoczvnxq [Mass/Vol]5.3 mg/dL2.5-4.6FThe [facility] CtrPlatelet mean volume Auto (Bld) [Entitic vol]on 26-10-8601Vcrxhqgl mean volume (Bld) [Entitic vol]7.1 fL6.6-10.1FThe [facility] CtrPlatelets Auto (Bld) [#/Vol]on 58-74-5129Brmqfjgvl (Bld) [#/Vol]388 10*3/pZ906-064UpkrcgstcTrinity Health System [facility] CtrRBC Auto (Bld) [#/Vol]on 24-66-9918ATY (Bld) [#/Vol]3.85 10*6/uL3.90-5.[address] Charles HospitalRBC morphologyon 00-33-3845BTN morphology finding Nom (Bld)N/AFThe [facility] CtrSerum or plasma calcium measurement (mass/volume)on 69-75-3916Vlzcxsa [Mass/Vol]8.7 mg/dL8.2-10.2FThe [facility] CtrSerum or plasma chloride measurement (moles/volume)on 08-25-2020 Chloride [Moles/Vol]99 mmol/T13-733QktyivwrzTrinity Health System [facility] CtrSerum or plasma glucose measurement (mass/volume)on 33-24-9077Iofunla [Mass/Vol]113 mg/zB05-283 [facility] CtrComment on above:ADA recommended reference rangeRandom Glucose Reference Range is dependent on time and content of last meal. Glucose of more than 200 mg/dL in a nonstressed, ambulatory subject supports the diagnosisof Diabetes Mellitus.Serum or plasma potassium measurement (moles/volume)on 03-46-4625Jhbqlvpem [Moles/Vol]4.6 mmol/L3.5-5.1FThe [facility] CtrSerum or plasma sodium measurement (moles/volume)on 00-23-4304Fdzuej [Moles/Vol]135 mmol/E306-442YyyexbdjzTrinity Health System [facility] CtrSerum or plasma total carbon dioxide measurement (moles/volume)on 79-56-0268OS5 [Moles/Vol]26.2 mmol/L22.0-30.0[facility] CtrSerum or plasma urea nitrogen measurement (mass/volume)on 07-41-2618Hthm nitrogen [Mass/Vol]75 mg/dL9-23[facility] CtrErythrocyte basophilic stippling detectionon 03-67-1046Ijmgxyxaiu stippling LM Ql (Bld)SlightTrinity Health System [facility] CtrLaboratory - Hematology and Cell countson 46-84-9176Rgsc form neutrophils/100 WBC (Bld)1 %0-5FThe [facility] CtrLymphocytes/100 WBC Auto (Bld)on 98-53-1114Xgxakuqywzo/100 WBC (Bld)6 %18-42[facility] CtrMetamyelocytes/100 WBC Manual cnt (Bld)on 08-24-2020 Metamyelocytes/100 WBC (Bld)1 %0-0[facility] CtrMonocytes/100 WBC Manual cnt (Bld)on 64-89-1752Vistlkirq/100 WBC (Bld)4 %2-11[facility] CtrMyelocytes/100 WBC Manual cnt (Bld)on 08-24-2020 Myelocytes/100 WBC (Bld)1 %0-0[facility] CtrNo Panel Information on 67-99-3593BujybngFecrfaNvschdsbi Regional Medical CtrSegmented neutrophils/100 WBC Manual cnt (Bld)on 89-61-0123Mrhgibvlx neutrophils/100 WBC (Bld)87 %50-70[facility] CtrNo Panel Informationon 08-23-2020 Bedside Glucose #[address]/[facility] CtrBedside Glucose #3 CommentCleaned meterTrinity Health System [facility] CtrSerum nuclear antibody titeron 40-35-3341Qremfrv Ab (S) [Titer]NegativeTrinity Health System [facility] CtrComment on above:Negative <1:80 Borderline 1:80 Positive >1:80Performed at: - [facility] [id number] Director: Mata Brian PhD, Phone: [phone] or plasma rheumatoid factor measurement (units/volume)on 67-40-5854Uwrsnrpztl factor Qn20.6 [IU]/mL [facility] CtrComment on above:Performed at: - [facility] [id number] Director: Mata Brian PhD, Phone: [phone] biopsyon 72-37-6028Giqnqbjrlrg [Mass/Vol]104 mg/rP805-933 [facility] CtrFerritin [Mass/volume] in Serum or Plasmaon 31-97-2254Lohwroye [Mass/Vol]334.8 ng/mL23.9-336.2FThe [facility] Iron [Mass/volume] in Serum or Plasmaon 18-85-2116Ddxb [Mass/Vol]17 ug/wI46-136 [facility] CtrIron binding capacity [Mass/volume] in Serum or Plasmaon 32-69-6139Utwr binding capacity [Mass/Vol]146 ug/eE421-463DaonngdonTrinity Health System [facility] CtrIron saturation [Mass Fraction] in Serum or Plasmaon 80-51-8184Qzqq saturation [Mass fraction]11.0 %20-50[facility] CtrCreatine kinase [Enzymatic activity/volume] in Serum or Plasmaon 73-82-9434KX [Catalytic activity/Vol]45 U/S11-470YwjimqkxeTrinity Health System [facility] CtrNo Panel Informationon 82-42-0340Gigsb BodiesSlightTr[facility] CtrSerum or plasma cardiac troponin I measurement (mass/volume)on 87-53-9357Mgtjfzfg I.cardiac [Mass/Vol]ng/mL0-0.02[facility] CtrComment on above: HÉCTOR VA Cut off value > or equal to 0.03 ng/mL in conjunction with clinical conditions of myocardial infarction.([email or web address].org/guidelines)Serum or plasma creatine kinase MB (CKMB)/total creatine kinase (CK) ratio by calculaon 22-57-1020NS.MB Calc [Catalytic fraction]5.1 %0.00-2.50[facility] CtrSerum or plasma creatine kinase MB measurement (mass/volume)on 67-02-3859YF.MB [Mass/Vol]2.3 ng/mL0.6-6.3FThe [facility] Erythrocyte sedimentation rate by Photometric methodon 56-62-8520VOM Photometric method (Bld) [Velocity]108 mm/hr0-19[facility] CtrSerum or plasma C reactive protein measurement (mass/volume)on 30-45-8438EEN [Mass/Vol] 19.4 mg/dL0.0-1.0[facility] CtrABO and Rh group post transfusion reaction Nom (Bld)on 63-89-3930Nnntlrhzbvi observation Gram stain Nom (Unsp spec)[facility] CtrGlucose mean value [Mass/volume] in Blood Estimated from glycated hemoglobinon 19-20-5227Dfaryzp glucose Estimated from glycated hemoglobin (Bld) [Mass/Vol]298 mg/dLTr[facility] Health System [facility]tr Hemoglobin A1c percentageon 23-08-2720RbQ7o (Bld) [Mass fraction]12.0 %4.3-5.6 [facility] CtrComment on above:Increased risk for diabetes: 5.7 - 6.4diabetes: >6.4glycemic control for adults with diabetes: <7.0Laboratory - Chemistry and Chemistry - challengeon 11-51-6149Wrgsdulma [Mass/Vol]2.0 mg/dL 1.6-2.6FThe [facility] CtrNo Panel Informationon 974155-Uayywnx Vitamin D Total24.6 ng/wK16-070UurlfomzpTrinity Health System [facility] CtrComment on above: VITAMIN D STATUS 25(OH)VITAMIN D RANGE (ng/mL) Deficient <20 Insufficient 20 to <44Zgnqcuurel40 to 100Reference: Aki MF,Oriana NGUYEN, Elli JONAS, et al. Evaluation,treatment, and prevention of vitamin D deficiency; an Endocrine Society clinical practice guideline. JCEM. 2010; 96(7):1911-30.Activated partial thromboplastin time (aPTT) in platelet poor plasma by coagulation aon 17-13-5934pUCM Coag (PPP) [Time]36.9 s25.1-36.5FThe [facility]tr Albumin [Mass/volume] in Serum or Plasmaon 30-03-1041Aizyvnv [Mass/Vol]2.7 g/dL 3.2-5.5FThe [facility] CtrBacterial blood cultureon 08-18-2020 Bacteria identified Cx Nom (Bld)NO GROWTH 5 DAYSTrinity Health System [facility] Ctr Basophils Auto (Bld) [#/Vol]on 07-98-4304Ybkgvzhrq (Bld) [#/Vol]0.0 10*3/uL 0.0-0.2FThe [facility] System CtrBasophils/100 WBC Auto (Bld)on 08-18-2020 Basophils/100 WBC (Bld)0.3 %[facility] CtrBeta-hydroxybutyric acid measurementon 28-19-6281Qmjk hydroxybutyrate [Mass/Vol]0.44 mmol/L0.02-0.27 [facility] CtrBlood hemoglobin measurement (mass/volume)on 82-14-8268Icdiczilep (Bld) [Mass/Vol]11.8 g/dL13.0-17.0[facility] HospitalBlood leukocytes automated count (number/volume)on 79-43-0549AXO (Bld) [#/Vol]15.3 10*3/uL4.5-11.0[facility] CtrCOVID-19 Detected/Not Detectedon 09-15-8167DKQX-CoV-2 (COVID-19) RNA SUDHA+non-probe Ql (Nph)Not detectedNot DetecteFThe [facility] CtrComment on above:This is a duplicate RP2.1 COVID (PCR) result to be used for statistical tracking purpose only.COVID-19 SOFIAon 26-13-3632EMIA-CoV+SARS-CoV-2 (COVID-19) Ag IA.rapid Ql (Resp)NegativeNegativeTr[facility] CtrComment on above:This is a duplicate Ayah SARS Antigen (AGUSTINA) result to be used for statistical tracking purpose only.Creatinine and Glomerular filtration rate.predicted panel (S/P/Bld)on 47-61-4619Zcusooeekp [Mass/Vol]3.04 mg/dL 0.64-1.27[facility] CtrEosinophils Auto (Bld) [#/Vol]on 97-35-3403Rkkoomxhvky (Bld) [#/Vol]0.5 10*3/uL0.0-0.45[facility] CtrEosinophils/100 WBC Auto (Bld)on 39-40-9700Dhjvvdrtpbd/100 WBC (Bld)3.4 % [facility] CtrErythrocyte distribution width Auto (RBC) [Ratio] on 17-32-2268Sywalupuxix distribution width (RBC) [Ratio]16.3 %12.0-14.8 [facility] CtrEstimated glomerular filtration rate (GFR) non- Americanon 44-06-9784WSM/1.73 sq M.predicted among non-blacks MDRD (S/P/Bld) [Vol rate/Area]21 mL/MinTrinity Health System [facility] CtrGlobulin Calc (S) [Mass/Vol]on 32-95-1236Drqmzvvu (S) [Mass/Vol]4.4 g/dLTr[facility] Health System [facility] CtrGlucose Glucometer (BldC) [Mass/Vol]on 03-75-5557Vuygrzx [Mass/Vol] 388 mg/dLTr[facility] CtrComment on above:Random Glucose Reference Range is dependent on time and content of last meal. Glucose of more than 200 mg/dL in a nonstressed, ambulatory subject supports the diagnosis of Diabetes Mellitus.Hematocrit Auto (Bld) [Volume fraction]on 85-09-3056Ajewmdycof (Bld) [Volume fraction]36.1 %38.8-50.0[facility] CtrLaboratory - Chemistry and Chemistry - challengeon 48-36-8639ZX2 [Moles/Vol]25.7 mmol/L 24.0-29.0[facility] CtrHCO3 (Bld) [Moles/Vol]24.3 mmol/L 23.0-29.0[facility] CtrMagnesium [Mass/Vol]2.2 mg/dL1.6-2.6 [facility] CtrNatriuretic peptide B (Bld) [Mass/Vol]48.0 pg/mL 5-100[facility] CtrLaboratory - Coagulationon 77-46-1891BB Coag (PPP) [Time]11.7 s9.0-12.9[facility] CtrLaboratory - Hematology and Cell countson 76-02-8753Ccndntlpk RBC/100 WBC (Bld) [Ratio]0.1 %0-0.5 [facility] CtrLymphocytes Auto (Bld) [#/Vol]on 08-18-2020 Lymphocytes (Bld) [#/Vol]0.9 10*3/uL1.00-4.8[facility] Ctr Lymphocytes/100 WBC Auto (Bld)on 62-32-0765Jdmxoxlbbop/100 WBC (Bld)6.1 % [facility] CenterH Auto (RBC) [Entitic mass]on 53-22-5253QSA (RBC) [Entitic mass]27.2 pg27.5-35.2FSt. Mary's Medical CenterMCHC Auto (RBC) [Mass/Vol]on 05-85-9807HCMI (RBC) [Mass/Vol]32.6 g/dL32.5-35.6FLutheran HospitalV Auto (RBC) [Entitic vol]on 24-93-6240AQI (RBC) [Entitic vol]83.5 fL83.5-101[facility] CtrMonocytes Auto (Bld) [#/Vol]on 18-57-2658Pzmmlezst (Bld) [#/Vol]1.5 10*3/uL0.0-0.8[facility] CtrMonocytes/100 WBC Auto (Bld)on 05-77-8887Ywnlfztfx/100 WBC (Bld)10.1 % [facility] CtrNeutrophils Auto (Bld) [#/Vol]on 08-18-2020 Neutrophils (Bld) [#/Vol]12.3 10*3/uL1.8-7.7FThe [facility]tr Neutrophils/100 WBC Auto (Bld)on 88-34-6778Keoygtgtmsv/100 WBC (Bld)80.1 % [facility] CtrNo Panel Informationon 76-64-3682Ulyhexxbdew Panel (PCR)[facility] CtrBlood Gas Critical ValueSee commentTrinity [facility] CtrComment on above:Critical Value called on: 08/18/2020 at 17:44Blood Gas Sample SiteVenousTrinity Health [facility] MdrJcK285 %[facility] CtrVenous Blood Base Excess-1.5 mmol/L-3.0-3.0[facility] CtrVenous Blood Oxygen Content4.1 mmol/L6.6-9.7FThe [facility] CtrVenous Blood Oxygen Uvpuddykdq31.3 %73.0-76.0[facility] CtrVenous Blood Partial Pressure CO245.2 mm[Hg]38.0-50.0 [facility] CtrVenous Blood Partial Pressure O224.4 mm[Hg] 35.0-45.0[facility] CtrVenous Blood pH7.357.32-7.43[facility] CtrEstimated GFR ()26 mL/MinTrinity [facility] CtrComment on above:GFR estimated reference range: According to KDOQI guidelines, <60 ml/min/1.73m2 is sufficient todiagnose a patient with chronic kidney disease.Pharmacy Creatinine Clearance (Chem38.57[facility] CtrPlatelet mean volume Auto (Bld) [Entitic vol]on 37-91-6847Sydbeafx mean volume (Bld) [Entitic vol]7.3 fL6.6-10.1FThe [facility] Ctr Platelet poor plasma international normalized ratio (INR) by coagulation assay (relaton 52-08-2639EFU Coag (PPP) [Relative time]1.0 {INR}[facility] CtrComment on above:INR Therapeutic Range A) Pre- [...] valves: 3 - 4.5Platelets Auto (Bld) [#/Vol]on 37-25-8133Dramowyca (Bld) [#/Vol]249 10*3/tP237-641QfeugrbqvTrinity Health System [facility] CtrProtein [Mass/volume] in Serum or Plasmaon 66-86-6679Ysfrurs [Mass/Vol]7.1 g/dL6.1-7.9[facility] CtrRBC Auto (Bld) [#/Vol]on 31-43-8176VTW (Bld) [#/Vol]4.32 10*6/uL 3.90-5.60[facility] CtrSerum or plasma alanine aminotransferase measurement without P-5'-P (enzymatic activion 84-58-1918XFZ No additional P-5'-P [Catalytic activity/Vol]13 U/G45-22SzngonjruTrinity Health System [facility] CtrSerum or plasma albumin/globulin mass ratioon 37-65-4028Qngikdt/Globulin [Mass ratio]0.6 {ratio}[facility] CtrSerum or plasma alkaline phosphatase measurement (enzymatic activity/volume)on 85-72-0141SUO [Catalytic activity/Vol] 88 U/O54-76SvtpcqnuzTrinity Health System [facility] CtrSerum or plasma aspartate aminotransferase measurement (enzymatic activity/volume)on 68-16-8486CBP [Catalytic activity/Vol]16 U/R20-76FcccexuosTrinity Health System [facility] CtrSerum or plasma calcium measurement (mass/volume)on 86-10-7739Yhdcsqn [Mass/Vol]8.9 mg/dL 8.2-10.2FThe [facility] CtrSerum or plasma cardiac troponin I measurement (mass/volume)on 90-26-1462Purxjxap I.cardiac [Mass/Vol]ng/mL0-0.02 [facility] CtrComment on above:HÉCTOR VA Cut off value > or equal to 0.03 ng/mL in conjunction with clinical conditions of myocardial infarction.(www.escardio.org/guidelines)Serum or plasma chloride measurement (moles/volume)on 53-28-1697Mtkszzfl [Moles/Vol]95 mmol/D14-768VfjynzzpkTr[facility] CtrSerum or plasma glucose measurement (mass/volume)on 08-18-2020 Glucose [Mass/Vol]512 mg/gX33-258KletlnospTrinity Health System [facility] CtrComment on above: Results calledat 1659 on 08/18/20 ADA recommended reference rangeRandom Glucose Reference Range is dependent on time and content of last meal. Glucose of more than 200 mg/dL in a nonstressed, ambulatory subject supports the diagnosis of Diabetes Mellitus.Serum or plasma potassium measurement (moles/volume)on 54-41-5747Ehrqpijoy [Moles/Vol]4.2 mmol/L3.5-5.1FSt. Mary's Medical Center Serum or plasma sodium measurement (moles/volume)on 93-18-4495Necron [Moles/Vol] 128 mmol/J553-605MjpcnmhpsTrinity Health System [facility] CtrSerum or plasma total bilirubin measurement (mass/volume)on 62-31-9147Hrmaygkvy [Mass/Vol]0.7 mg/dL0.3-1.2 [facility] CtrSerum or plasma total carbon dioxide measurement (moles/volume)on 03-14-3222VA3 [Moles/Vol]22.6 mmol/L22.0-30.0[facility] CtrSerum or plasma urea nitrogen measurement (mass/volume)on 08-18-2020 Urea nitrogen [Mass/Vol]27 mg/dL9-[facility] CtrCBC COMPLETE BLOOD COUNTon 90-17-9023Lcrutexulpa distribution width (RBC) [Ratio]15.0 %Normal 11.5-15.0The [facility], AvonComment on above:Order Comment: No: Do not add to previous drawPerformed By: #### [id number] #### [facility] [address] [place] [address], [facility] AT L[facility] VEGASHematocrit (Bld) [Volume fraction]32.4 %Low39.0-50.0The [facility], AvonComment on above:Order Comment: No: Do not add to previous drawPerformed By: #### [id number] #### [facility] [address] [place] [address], [facility] L[facility] VEGASHemoglobin (Bld) [Mass/Vol]9.5 g/dLLow13.0-17.0The [facility], AvonComment on above:Order Comment: No: Do not add to previous drawPerformed By: #### [id number] #### [facility] [address] [place] [address], [facility]UMRIGHTH (RBC) [Entitic mass]26.7 pgLow27.0-33.0The [facility], AvonComment on above:Order Comment: No: Do not add to previous drawPerformed By: #### [id number] #### [facility] [address] [place] [address], [facility] DRUMRIGHTHC (RBC) [Mass/Vol]29.3 g/dLLow32.0-35.0The [facility], AvonComment on above:Order Comment: No: Do not add to previous drawPerformed By: #### [id number] #### [facility] [address] [place] [id number], [facility] AT L[facility] VEGASMCV (RBC) [Entitic vol]91.0 aIUrftmh11.0-98.0The [facility], AvonComment on above:Order Comment: No: Do not add to previous drawPerformed By: #### [id number] #### [facility] [address] [place] [address], [facility] AT L[facility] VEGASNucleated RBC/100 WBC (Bld) [Ratio]0 %Normal0-0The [facility], AvonComment on above:Order Comment: No: Do not add to previous drawPerformed By: #### [id number] #### [facility] [address] [place] [id number], USAPLAT [id number] 10*3/zDSbaqmj203-840Zap [facility], AvonComment on above:Order Comment: No: Do not add to previous draw Performed By: #### [id number] #### [facility] [address] [place] [id number], [facility] AT L[facility] VEGASRBC (Bld) [#/Vol]3.56 10*6/uLLow4.20-5.70The [facility], AvonComment on above:Order Comment: No: Do not add to previous drawPerformed By: #### [id number] #### [facility] [address] [place] [address], [facility] AT L[facility] VEGASWBC (Bld) [#/Vol]8.61 10*3/uLNormal4.00-10.60The [facility], AvonComment on above:Order Comment: No: Do not add to previous drawPerformed By: #### [id number] #### [facility] [address] [place] [address], USACOMP METABOLIC PANELon 54-59-4117Puzaklq [Mass/Vol]2.7 g/dL Low3.5-5.7The [facility], AvonComment on above:Order Comment: No: Do not add to previous drawPerformed By: #### [id number] #### [facility] [address] [place] [address], USAALKALINE XNGZSI76 IU/ZOrlvpz91-719Rgd [facility], AvonComment on above:Order Comment: No: Do not add to previous draw Performed By: #### [id number] #### [facility] [address] [place] [address], USAALT [Catalytic activity/Vol]4 U/LLow7-52The [facility], AvonComment on above:Order Comment: No: Do not add to previous drawPerformed By: #### [id number] #### [facility] [address] [place] [address], USAAST [Catalytic activity/Vol]15 U/PKlmrhr79-22Ugz [facility], AvonComment on above:Order Comment: No: Do not add to previous drawPerformed By: #### [id number] #### [facility] [address] [place] [address], USABilirubin [Mass/Vol]0.2 mg/dLLow0.3-1.0The [facility], AvonComment on above:Order Comment: No: Do not add to previous drawPerformed By: #### [id number] #### [facility] [address] [place] [address], USACalcium [Mass/Vol]8.9 mg/dLNormal8.6-10.3The [facility], AvonComment on above:Order Comment: No: Do not add to previous drawPerformed By: #### [id number] #### [facility] [address] [place] [address], USAChloride [Moles/Vol]109 mmol/ANhmc24-912Nau [facility], AvonComment on above:Order Comment: No: Do not add to previous drawPerformed By: #### [id number] #### [facility] [address] [place] [address], USACO2 [Moles/Vol]24 mmol/ZWggjsg82-42Szt [facility], AvonComment on above:Order Comment: No: Do not add to previous draw Performed By: #### [id number] #### [facility] [address] [place] [address], USACreatinine [Mass/Vol]3.39 mg/dLHigh0.70-1.30The [facility], AvonComment on above:Order Comment: No: Do not add to previous drawPerformed By: #### [id number] #### [facility] [address] [place] [address], USAeGFR- Rojmbwfy71 ml/min/1.73sq mAbnormal>60The [facility], AvonComment on above:Order Comment: No: Do not add to previous drawPerformed By: #### [id number] #### [facility] [address] [place] [address], USAeGFR- non- Gmgjknnu09 ml/min/1.73sq mAbnormal>60The [facility], AvonComment on above:Order Comment: No: Do not add to previous drawPerformed By: #### [id number] #### [facility] [address] [place] [address], USAGlucose [Mass/Vol]90 mg/lNJrkatw68-094Xpb [facility], AvonComment on above:Order Comment: No: Do not add to previous drawPerformed By: #### [id number] #### [facility] [address] [place] [address], USAPotassium [Moles/Vol]4.4 mmol/LNormal3.5-5.1The [facility], AvonComment on above:Order Comment: No: Do not add to previous drawPerformed By: #### [id number] #### [facility] [address] [place] [address], USAProtein [Mass/Vol]5.9 g/dLLow6.0-8.3The [facility], AvonComment on above:Order Comment: No: Do not add to previous drawPerformed By: #### [id number] #### [facility] [address] [place] [address], USASodium [Moles/Vol]140 mmol/YZptosr743-925Xft [facility], AvonComment on above:Order Comment: No: Do not add to previous drawPerformed By: #### [id number] #### [facility] [address] [place] [address], USAUrea nitrogen [Mass/Vol]35 mg/dLHigh7-25The [facility], AvonComment on above:Order Comment: No: Do not add to previous drawPerformed By: #### [id number] #### [facility] [address] [place] [address], USAPOC GLUCOSE LABon 41-85-9217Jqlpotv [Mass/Vol]192 mg/dLHigh 70-100The [facility], AvonComment on above:Performed By: #### 23030 #### [facility] [address] [place] [address], USAGlucose [Mass/Vol]95 mg/lFGkfyzl44-091Dhk [facility], AvonComment on above:Performed By: #### [id number], [id number] #### [facility] [address] [place] [address], USAGlucose [Mass/Vol]123 mg/oLFsfy77-340Mup [facility], AvonComment on above:Performed By: #### [id number] ####[facility] [place] [address], USAARTERIAL BLOOD GAS WITH ICAon 27-70-6595EAIY EXCESS-2 mmol/HHrkpmv-4-7Fbq [facility], AvonComment on above:Performed By: #### [id number] #### [facility] [address] [place] [address], USADELIVERY SYSTEMSFOCUSNormalThe [facility], AvonComment on above:Performed By: #### [id number] #### [facility] [address] [place] [address], USAHCO3 (Bld) [Moles/Vol]24 mmol/JDewxws49-25Jqg [facility], AvonComment on above:Performed By: #### [id number] #### [facility] [address] [place] [address], USAIONIZED CALCIUM1.25 mmol/LNormal1.13-1.32The [facility], AvonComment on above:Performed By: #### [id number] #### [facility] [address] [place] [address], USALPM4.0 LPMNormalThe [facility] [place] Comment on above:Performed By: #### [id number] #### [facility] [address] [place] [address], USAMODALITYBIPAPNormalThe [facility] [place] Comment on above:Performed By: #### 61905 #### [facility] [address] [place] [address], USAOxygen (Bld) [Partial pressure]91 mm[Hg]Lykhaq91-590Ldf [facility], AvonComment on above:Performed By: #### [id number] #### [facility] [address] [place] [address], USAOxygen saturation in Blood95.9 %Pcsref80.0-97.0The [facility], AvonComment on above:Performed By: #### [id number] #### [facility] [address] [place] [address], UAXNYH564 vfHhUmjj84-29Tdg [facility] [place] Comment on above:Performed By: #### [id number] #### [facility] [address] [place] [address], USAPEEP8.0 GPI45BarvogLyuMcKitrick Hospital Comment on above:Performed By: #### [id number] #### [facility] [address] [place] [address], USApH (Bld)7.32 [pH]Low7.35-7.45The [facility], AvonComment on above:Performed By: #### [id number] #### [facility] [address] [place] [address], USAPRESSURE KVSMPVJ76QdjvzfVwyMcKitrick HospitalComment on above:Performed By: #### [id number] #### [facility] [address] [place] [address], USABASE EXCESS-3 mmol/LLow-2-3The [facility], AvonComment on above:Performed By: #### [id number] #### [facility] [address] [place] [address], USADELIVERY SYSTEMSNASAL CANNULANoMcKitrick HospitalComment on above:Performed By: #### [id number] #### [facility] [address] [place] [address], USAHCO3 (Bld) [Moles/Vol]25 mmol/YNjnhqe74-27Vva [facility], AvonComment on above:Performed By: #### [id number] #### [facility] [address] [place] [address], USAIONIZED CALCIUM1.26 mmol/LNormal1.13-1.32The [facility], AvonComment on above:Performed By: #### 91808 #### [facility] [address] [place] [address], USALPM2.0 LPMNormalThe [facility] [place] Comment on above:Performed By: #### 19487 #### [facility] [address] [place] [address], USAOxygen (Bld) [Partial pressure]92 mm[Hg]Ixdkxj43-856Hnk [facility], AvonComment on above:Performed By: #### 35750 #### [facility] [address] [place] [address], USAOxygen saturation in Blood95.7 %Tofjdq04.0-97.0The [facility], AvonComment on above:Performed By: #### 91762 #### [facility] [address] [place] [address], KJURDE955 oxJvGmpv94-38Ejy [facility] [place] Comment on above:Performed By: #### [id number] #### [facility] [address] [place] [address], USApH (Bld)7.27 [pH]Low7.35-7.45The [facility], AvonComment on above:Performed By: #### [id number] #### [facility] [address] [place] [address], USABASIC METABOLIC PANELon 61-91-1857Ofgnudm [Mass/Vol]9.0 mg/dLNormal8.6-10.3The [facility], AvonComment on above:Order Comment: No: Do not add to previous drawPt not in room rn will return when back.Performed By: #### [id number] #### [facility] [address] [place] [address], USAChloride [Moles/Vol]106 mmol/HXyzlht23-336Eud [facility], AvonComment on above:Order Comment: No: Do not add to previous drawPt not in room rn will return when back.Performed By: #### [id number] #### [facility] [address] [place] [address], USACO2 [Moles/Vol]25 mmol/HJhenwt89-53Cbf [facility], AvonComment on above:Order Comment: No: Do not add to previous drawPt not in room rn will return when back.Performed By: #### [id number] #### [facility] [address] [place] [address], USACreatinine [Mass/Vol]3.75 mg/dLHigh0.70-1.30The [facility], AvonComment on above:Order Comment: No: Do not add to previous drawPt not in room rn will return when back.Performed By: #### [id number] #### [facility] [address] [place] [address], USAeGFR- Uibmuryy44 ml/min/1.73sq mAbnormal>60The [facility], AvonComment on above:Order Comment: No: Do not add to previous drawPt not in room rn will return when back.Performed By: #### 96068 #### [facility] [address] [place] [address], USAeGFR- non- Vsrarodb52 ml/min/1.73sq mAbnormal>60The [facility], AvonComment on above:Order Comment: No: Do not add to previous drawPt not in room rn will return when back.Performed By: #### [id number] #### [facility] [address] [place] [address], USAGlucose [Mass/Vol]132 mg/dLGzti15-737Ros [facility], AvonComment on above:Order Comment: No: Do not add to previous drawPt not in room rn will return when back.Performed By: #### 98087 #### [facility] [address] [place] [address], USAPotassium [Moles/Vol]5.0 mmol/LNormal3.5-5.1The [facility], AvonComment on above:Order Comment: No: Do not add to previous drawPt not in room rn will return when back.Performed By: #### 04820 #### [facility] [address] [place] [address], [facility] VEGASSodium [Moles/Vol]138 mmol/BAacoyr925-854Bxk [facility], AvonComment on above:Order Comment: No: Do not add to previous drawPt not in room rn will return when back.Performed By: #### [id number] #### [facility] [address] [address], USAUrea nitrogen [Mass/Vol]37 mg/dLHigh7-25The [facility], AvonComment on above:Order Comment: No: Do not add to previous drawPt not in room rn will return when back.Performed By: #### 12508 #### [facility] [address] [address], [facility] L[facility] VEGASCB COMPLETE BLOOD COUNTon 22-77-7992Tailddlfaps distribution width (RBC) [Ratio]15.0 %Avyqlj94.5-15.0The [facility], AvonComment on above:Order Comment: No: Do not add to previous drawPt not in room rn will return when back.Performed By: #### [id number] #### [facility] [address] [address], USAHematocrit (Bld) [Volume fraction]33.9 %Low39.0-50.0The [facility], AvonComment on above:Order Comment: No: Do not add to previous drawPt not in room rn will return when back.Performed By: #### 93796 #### [facility] [address] [place] [address], USAHemoglobin (Bld) [Mass/Vol]9.9 g/dLLow13.0-17.0The [facility], AvonComment on above:Order Comment: No: Do not add to previous drawPt not in room rn will return when back.Performed By: #### [id number] #### [facility] [address] [place] [address], [facility] (RBC) [Entitic mass]26.9 pgLow27.0-33.0The [facility], AvonComment on above:Order Comment: No: Do not add to previous drawPt not in room rn will return when back.Performed By: #### 58503 #### [facility] [address] [place] [id number], [facility]UMRIGHTHC (RBC) [Mass/Vol]29.2 g/dLLow32.0-35.0The [facility], AvonComment on above:Order Comment: No: Do not add to previous drawPt not in room rn will return when back.Performed By: #### 09433 #### [facility] [address] [place] [address], [facility]V (RBC) [Entitic vol]92.1 zZEgsxbq53.0-98.0The [facility], AvonComment on above:Order Comment: No: Do not add to previous drawPt not in room rn will return when back.Performed By: #### [id number] #### [facility] [address] [place] [address], [facility] L[facility] VEGASNucleated RBC/100 WBC (Bld) [Ratio]0 %Normal0-0The [facility], AvonComment on above:Order Comment: No: Do not add to previous drawPt not in room rn will return when back.Performed By: #### 51042 #### [facility] [address] [place] [address], [facility] AT L[facility] VEGASPLAT [id number] 10*3/wIQykusp610-411Mfi [facility], AvonComment on above:Order Comment: No: Do not add to previous drawPt not in room rn will return when back.Performed By: #### 35732 #### [facility] [address] [place] [address], USARBC (Bld) [#/Vol]3.68 10*6/uLLow4.20-5.70The [facility], AvonComment on above:Order Comment: No: Do not add to previous drawPt not in room rn will return when back.Performed By: #### 76216 #### [address] [address], USAWBC (Bld) [#/Vol]9.51 10*3/uLNormal4.00-10.60The [facility], AvonComment on above:Order Comment: No: Do not add to previous drawPt not in room rn will return when back.Performed By: #### 55553 #### [address] [address], USACT CHEST WO CONTRASTon 10-64-1512AE CHEST WO CONTRAST [facility] Department of Radiology [address] [place] [id number] Patient Name: RASHARD LYMAN : 1960 Sex: M Age: Race: White Pt. Location: [address] [place] [address] Patient Status: I Ordered Date: 07/21/2020 6:00:00 [...] pneumonia. Electronically signed: Manuel Saldaña. Transcribed by: [email or web address], User Resident: Electronically Signed by: MANUEL SALDAÑA @ 07/21/2020 08:38 AMNormalThe [facility], AvonComment on above:Order Comment: Left Peural EffusionPOC GLUCOSE LABon 50-16-1324Pcslpwx [Mass/Vol]134 mg/rZPnfh40-341Tvm [facility], AvonComment on above:Performed By: #### [address] #### [place] [address], [facility] L[facility] VEGASGlucose [Mass/Vol]88 mg/zLUtneov58-705Ran [facility], AvonComment on above:Performed By: #### 34643 #### [facility] [address] [place] [address], USAGlucose [Mass/Vol]110 mg/sGDyaw29-599Alw [facility], AvonComment on above:Performed By: #### 23133 #### [facility] [address] [place] [address], USAGlucose [Mass/Vol]118 mg/nQAxdu20-868Maw [facility], AvonComment on above:Performed By: #### 73955, 42344 #### [facility] [address] [place] [address], USAGlucose [Mass/Vol]137 mg/fIKuvl32-919Lib [facility], AvonComment on above:Performed By: #### 09993, 37227 #### [facility] [address] [place] [address], USABASIC METABOLIC PANELon 20-04-0067Svbcjcc [Mass/Vol]8.4 mg/dLLow8.6-10.3The [facility], AvonComment on above:Order Comment: No: Do not add to previous drawPerformed By: #### 55004 #### [facility] [address] [place] [address], USAChloride [Moles/Vol]107 mmol/ENxbeys65-961Ueq [facility], AvonComment on above:Order Comment: No: Do not add to previous drawPerformed By: #### 02759 #### [facility] [address] [place] [address], USACO2 [Moles/Vol]23 mmol/PEzvzfe95-16Ove [facility], AvonComment on above:Order Comment: No: Do not add to previous draw Performed By: #### 27196 #### [facility] [address] [place] [address], USACreatinine [Mass/Vol]3.95 mg/dLHigh0.70-1.30The [facility], AvonComment on above:Order Comment: No: Do not add to previous drawPerformed By: #### 50894 #### [facility] [address] [place] [address], USAeGFR- Noutngin81 ml/min/1.73sq mAbnormal>60The [facility], [place]onComment on above:Order Comment: No: Do not add to previous drawPerformed By: #### 19815 #### [facility] [address] [place] [address], USAeGFR- non- Hlwvlumr69 ml/min/1.73sq mAbnormal>60The [facility], [place]onComment on above:Order Comment: No: Do not add to previous drawPerformed By: #### 81538 #### [facility] [address] [place] [address], USAGlucose [Mass/Vol]110 mg/jUSoxo24-708Mcn [facility], AvonComment on above:Order Comment: No: Do not add to previous drawPerformed By: #### 61118 #### [facility] [address] [place] [address], USAPotassium [Moles/Vol]4.9 mmol/LNormal3.5-5.1The [facility], AvonComment on above:Order Comment: No: Do not add to previous drawPerformed By: #### 90675 #### [facility] [address] [place] [address], USASodium [Moles/Vol]137 mmol/CZofbzr972-795Dde [facility], AvonComment on above:Order Comment: No: Do not add to previous drawPerformed By: #### 80190 #### [facility] [address] [place] [address], USAUrea nitrogen [Mass/Vol]37 mg/dLHigh7-25The [facility], AvonComment on above:Order Comment: No: Do not add to previous drawPerformed By: #### 67615 #### [facility] [address] [facility] [place] [address], [facility] L[facility] VEGASCB W/DIFFon 64-30-0189RNK IMM GRANS0.1 10*3/uLNormal 0.0-0.2The [facility], [place]onComment on above:Order Comment: No: Do not add to previous drawPerformed By: #### 67185 #### [facility] [address] [facility] [place] [address], USAABS NEUTROPHILS5.9 10*3/uLNormal1.6-7.6The [facility], [place]onComment on above:Order Comment: No: Do not add to previous drawPerformed By: #### 71893 #### [facility] [address] [address], USABasophils (Bld) [#/Vol]0.1 10*3/uLNormal0.0-0.2The [facility], [place]onComment on above:Order Comment: No: Do not add to previous drawPerformed By: #### 18090 #### [facility] [address] [facility] [place] [address], USABasophils/100 WBC (Bld)1.0 %Normal0.0-1.0The [facility], [place]onComment on above:Order Comment: No: Do not add to previous drawPerformed By: #### 86700 #### [facility] [address] [facility] [place] [address], USAEosinophils (Bld) [#/Vol]0.4 10*3/uLNormal0.0-0.5The [facility], [place]onComment on above:Order Comment: No: Do not add to previous drawPerformed By: #### 25803 #### [facility] [address] [facility] [place] [address], USAEosinophils/100 WBC (Bld)5.1 %Normal0.0-6.0The [facility], [place]onComment on above:Order Comment: No: Do not add to previous drawPerformed By: #### 10373 #### [facility] [address] [facility] [place] [address], USAErythrocyte distribution width (RBC) [Ratio]15.4 %High 11.5-15.0The [facility], [place]onComment on above:Order Comment: No: Do not add to previous drawPerformed By: #### 84054 #### [facility] [address] [facility] [place] [address], USAHematocrit (Bld) [Volume fraction]35.7 %Low39.0-50.0The [facility], [place]onComment on above:Order Comment: No: Do not add to previous drawPerformed By: #### 43855 #### [facility] [address] [facility] [place] [address], USAHemoglobin (Bld) [Mass/Vol]10.3 g/dLLow13.0-17.0The [facility], [place]onComment on above:Order Comment: No: Do not add to previous drawPerformed By: #### 41150 #### [facility] [address] [facility] [place] [address], USAIMM PLATELET FRAC0.4 %Low0.8-6.3The [facility], AvonComment on above:Order Comment: No: Do not add to previous draw Performed By: #### 12346 #### [facility] [address] [facility] [place] [address], USAIMMATURE GRANS1.1 %High0.0-1.0The [facility], [place]onComment on above:Order Comment: No: Do not add to previous draw Performed By: #### 13059 #### [facility] [address] [place] [address], USALymphocytes (Bld) [#/Vol]0.8 10*3/uLLow1.2-4.0The [facility], AvonComment on above:Order Comment: No: Do not add to previous drawPerformed By: #### 69649 #### [facility] [address] [address], USALymphocytes/100 WBC (Bld)9.3 %Low20.0-45.0The [facility], AvonComment on above:Order Comment: No: Do not add to previous drawPerformed By: #### 69427 #### [facility] [address] [address], [facility] (RBC) [Entitic mass]27.4 wuNwrjeg97.0-33.0The [facility], [place]onComment on above:Order Comment: No: Do not add to previous drawPerformed By: #### 87642 #### [facility] [address] [place] [address], [facility] VEGASMCHC (RBC) [Mass/Vol]28.9 g/dLLow32.0-35.0The [facility], AvonComment on above:Order Comment: No: Do not add to previous drawPerformed By: #### 94753 #### [facility] [address] [place] [address], [facility]RIGHTV (RBC) [Entitic vol]94.9 oVYigceu27.0-98.0The [facility], AvonComment on above:Order Comment: No: Do not add to previous drawPerformed By: #### 20653 #### [facility] [address] [address], USAMonocytes (Bld) [#/Vol]1.1 10*3/uLHigh0.1-1.0The [facility], AvonComment on above:Order Comment: No: Do not add to previous drawPerformed By: #### 57613 #### [facility] [address] [place] [address], SJLAFUVY65.9 %High5.0-12.0The [facility], AvonComment on above:Order Comment: No: Do not add to previous drawPerformed By: #### 91645 #### [facility] [address] [place] [address], USANeutrophils/100 WBC (Bld)70.6 %Mzxwqw34.0-72.0The [facility], [place]onComment on above:Order Comment: No: Do not add to previous drawPerformed By: #### 03965 #### [facility] [address] [place] [address], USANucleated RBC/100 WBC (Bld) [Ratio]0 %Normal0-0The [facility], AvonComment on above:Order Comment: No: Do not add to previous drawPerformed By: #### 14963 #### [facility] [address] [facility] [place] [address], USAPLAT ESTIMATENormalNormalThe [facility], [place]onComment on above:Order Comment: No: Do not add to previous drawResult Comment: EDTA smear shows platelet clumping, see platelet estimatePerformed By: #### [id number] #### [facility] [address] [facility] [place] [address], USARBC (Bld) [#/Vol]3.76 10*6/uLLow4.20-5.70The [facility], AvonComment on above:Order Comment: No: Do not add to previous drawPerformed By: #### 15500 #### [facility] [address] [place] [address], USAWBC (Bld) [#/Vol]8.30 10*3/uLNormal4.00-10.60The [facility], AvonComment on above:Order Comment: No: Do not add to previous drawPerformed By: #### 94466 #### [facility] [address] [facility] [place] [address], USAPOC GLUCOSE LABon 38-00-2028Jvelvfa [Mass/Vol]110 mg/dLHigh 70-100The [facility], AvonComment on above:Performed By: #### 67711 #### [facility] [address] [facility] [place] [address], USAGlucose [Mass/Vol]124 mg/wVRmkp41-400Uil [facility], AvonComment on above:Performed By: #### 27248 #### [facility] [address] [facility] [place] [address], USAGlucose [Mass/Vol]111 mg/fPHeaw33-258Epi [facility], AvonComment on above:Performed By: #### 57801, 28476 #### [facility] [address] [facility] [place] [address], USAPORTABLE CHEST 1 VIEWon 88-77-8709ESHMNYOI CHEST 1 VIEW [facility] Department of Radiology [address] [place] [phone] Patient Name: RASHARD LYMAN : 1960 Sex: M Age: Race: White Pt. Location: [address] [place] [address] Patient Status: I Ordered Date: 07/20/2020 6:00:00 [...] unchanged Electronically signed: Manuel Saldaña. Transcribed by: [email or web address], User Resident: Electronically Signed by: MANUEL SALDAÑA @ 07/20/2020 09:07 AMNormalThe [facility], AvonComment on above:Order Comment: Evaluate for EffusionBASIC METABOLIC PANELon 93-70-0836Digkjcn [Mass/Vol]8.4 mg/dLLow8.6-10.3 The [facility], AvonComment on above:Order Comment: No: Do not add to previous drawPerformed By: #### [id number] #### [facility] [address] [place] [address], USAChloride [Moles/Vol]104 mmol/GEqyxii00-674Ani [facility], AvonComment on above:Order Comment: No: Do not add to previous drawPerformed By: #### 05749 #### [facility] [address] [place] [address], USACO2 [Moles/Vol]24 mmol/VIspbqg48-80Ust [facility], AvonComment on above:Order Comment: No: Do not add to previous draw Performed By: #### 54298 #### [facility] [address] [place] [address], USACreatinine [Mass/Vol]4.15 mg/dLHigh0.70-1.30The [facility], AvonComment on above:Order Comment: No: Do not add to previous drawPerformed By: #### 54435 #### [facility] [address] [place] [address], USAeGFR- Yxcdfjxc58 ml/min/1.73sq mAbnormal>60The [facility], AvonComment on above:Order Comment: No: Do not add to previous drawPerformed By: #### 90792 #### [facility] [address] [place] [address], USAeGFR- non- Rrsthdyo33 ml/min/1.73sq mAbnormal>60The [facility], AvonComment on above:Order Comment: No: Do not add to previous drawPerformed By: #### [id number] #### [facility] [address] [place] [address], USAGlucose [Mass/Vol]180 mg/aWJpfc83-350Qcv [facility], AvonComment on above:Order Comment: No: Do not add to previous drawPerformed By: #### 62598 #### [facility] [address] [place] [address], USAPotassium [Moles/Vol]4.4 mmol/LNormal3.5-5.1The [facility], AvonComment on above:Order Comment: No: Do not add to previous drawPerformed By: #### 58505 #### [facility] [address] [place] [address], USASodium [Moles/Vol]135 mmol/XFmg529-927Ydk [facility], AvonComment on above:Order Comment: No: Do not add to previous drawPerformed By: #### 95185 #### [facility] [address] [place] [address], USAUrea nitrogen [Mass/Vol]37 mg/dLHigh7-25The [facility], AvonComment on above:Order Comment: No: Do not add to previous drawPerformed By: #### 68282 #### [facility] [address] [place] [address], USACBC COMPLETE BLOOD COUNTon 77-13-8024Mxqccomnbzo distribution width (RBC) [Ratio]14.8 %Aguovp04.5-15.0The [facility], AvonComment on above:Order Comment: No: Do not add to previous draw Performed By: #### 91451 #### [facility] [address] [place] [address], USAHematocrit (Bld) [Volume fraction]30.9 %Low39.0-50.0The [facility], AvonComment on above:Order Comment: No: Do not add to previous drawPerformed By: #### [id number] #### [facility] [address] [address], USAHemoglobin (Bld) [Mass/Vol]9.0 g/dLLow13.0-17.0The [facility], AvonComment on above:Order Comment: No: Do not add to previous drawPerformed By: #### 44277 #### [facility] [address] [place] [address], [facility] VE[facility]ASMCH (RBC) [Entitic mass]26.6 pgLow27.0-33.0The [facility], AvonComment on above:Order Comment: No: Do not add to previous drawPerformed By: #### 21736 #### [facility] [address] [place] [address], [facility] L[facility] VEGASMCHC (RBC) [Mass/Vol]29.1 g/dLLow32.0-35.0The [facility], AvonComment on above:Order Comment: No: Do not add to previous drawPerformed By: #### [id number] #### [facility] [address] [address], USAMCV (RBC) [Entitic vol]91.4 gQWofwak93.0-98.0The [facility], AvonComment on above:Order Comment: No: Do not add to previous drawPerformed By: #### 80268 #### [facility] [address] [address], USANucleated RBC/100 WBC (Bld) [Ratio]0 %Normal0-0The [facility], AvonComment on above:Order Comment: No: Do not add to previous drawPerformed By: #### 66303 #### [facility] [address] [address], USAPLAT ELM508 10*3/zDUidydn219-769Abv [facility], AvonComment on above:Order Comment: No: Do not add to previous draw Performed By: #### 53799 #### [facility] [address] [address], USARBC (Bld) [#/Vol]3.38 10*6/uLLow4.20-5.70The [facility], AvonComment on above:Order Comment: No: Do not add to previous drawPerformed By: #### [id number] #### [facility] [address] [place] [address], USAWBC (Bld) [#/Vol]6.73 10*3/uLNormal4.00-10.60The [facility], AvonComment on above:Order Comment: No: Do not add to previous drawPerformed By: #### 93677 #### [facility] [address] [address], USAOperative Reporton [id number] ReportMR#: [id number] I [facility] [place] Pt. Name: [facility] #: [id number] Discharge Date: Birthdate: 1960 OPERATIVE REPORT DATE OF SURGERY: 07/19/2020 SURGEON: Nima Wynne MD Operative Note Medical Thoracoscopy, lysis of adhesions, pleural biopsy Procedure Date: 07/19/2020 Procedure: Medical Thoracoscopy, pleural biopsies, lysis of adhesions, and chest tube placement Preoperative Diagnosis: Loculated pleural effusion Post-operative Diagnosis: same Surgeons: Nima Wynne MD [place] Examiner: Davis Pham MD Type of Anesthesia: MAC [...] Wynne MD Date Trans: 07/19/2020 02:43 P/ DN_JN:[id number] cc: Jose Juarez D.O. [address] [place] [address] [place] [address]TgrdiiHafAultman Hospital GLUCOSE LABon [id number] [Mass/Vol]219 mg/qBCqer26-358Fjl [facility], AvonComment on above:Performed By: #### 12550, 48475 #### [facility] [address] [place] [address], USAGlucose [Mass/Vol]152 mg/kMGphe51-618Stk [facility], AvonComment on above:Performed By: #### 73774, 67947 #### [facility] [address] [place] [address], USAGlucose [Mass/Vol]183 mg/gNFchn09-219Uel [facility], AvonComment on above:Performed By: #### 40670 #### [facility] [address] [place] [address], USAGlucose [Mass/Vol]206 mg/qUBzgl15-412Zvz [facility], AvonComment on above:Performed By: #### 95348 ####[facility] [place] [address], USAGlucose [Mass/Vol] 179 mg/fOLgse15-892Uqc [facility], AvonComment on above: Performed By: #### 49246 #### [address] [place] [address], USAPORTABLE CHEST 1 VIEWon [id number] CHEST 1 VIEW [facility] [place] Department of Radiology [address] [place] [address] [place] [id number] Patient Name: RASHARD LYMAN : 1960 Sex: M Age: Race: White Pt. Location: [address] [place] [address] Patient Status: I Ordered Date: 07/19/2020 2:20:00 [...] infiltration Electronically signed: Pedro Baldwin. Transcribed by: [email or web address], User Resident: TAREK MOUSTAFA Electronically Signed by: PEDRO BALDWIN @ 07/19/2020 03:03 PM I personally read this/these film(s) with this [facility] for RehabilitationComment on above:Order Comment: Check Chest Tube Position BASIC METABOLIC PANELon [id number] [Mass/Vol]8.4 mg/dLLow8.6-10.3The [facility], AvonComment on above:Order Comment: No: Do not add to previous drawPerformed By: #### 63728 #### [facility] [address] [place] [address], USAChloride [Moles/Vol]105 mmol/RSgowcl07-689Cku [facility], AvonComment on above:Order Comment: No: Do not add to previous drawPerformed By: #### 23612 #### [facility] [address] [place] [address], USACO2 [Moles/Vol]25 mmol/IVsmtuu72-14Fqs [facility], AvonComment on above:Order Comment: No: Do not add to previous draw Performed By: #### 26450 #### [facility] [address] [place] [address], USACreatinine [Mass/Vol]4.54 mg/dLHigh0.70-1.30The [facility], AvonComment on above:Order Comment: No: Do not add to previous drawPerformed By: #### 81788 #### [facility] [address] [facility] [place] [address], USAeGFR- Wfeiameo27 ml/min/1.73sq mAbnormal>60The [facility], AvonComment on above:Order Comment: No: Do not add to previous drawPerformed By: #### 05189 #### [facility] [address] [place] [address], USAeGFR- non- Qnbmanar41 ml/min/1.73sq mAbnormal>60The [facility], AvonComment on above:Order Comment: No: Do not add to previous drawPerformed By: #### 92431 #### [facility] [address] [address], USAGlucose [Mass/Vol]118 mg/xIKyeg98-988Vzu [facility], AvonComment on above:Order Comment: No: Do not add to previous drawPerformed By: #### 95767 #### [facility] [address] [place] [address], USAPotassium [Moles/Vol]4.5 mmol/LNormal3.5-5.1The [facility], AvonComment on above:Order Comment: No: Do not add to previous drawPerformed By: #### 69427 #### [facility] [address] [facility] [place] [id number], USASodium [Moles/Vol]137 mmol/MZajaii818-713Ppr [facility], AvonComment on above:Order Comment: No: Do not add to previous drawPerformed By: #### 61261 #### [facility] [address] [facility] [place] [address], USAUrea nitrogen [Mass/Vol]40 mg/dLHigh7-25The [facility], AvonComment on above:Order Comment: No: Do not add to previous drawPerformed By: #### 40727 #### [facility] [address] [facility] [place] [address], [facility]STITUTE AT LAS VEGASCBC W/DIFFon 34-13-8895NIG IMM GRANS0.1 10*3/uLNormal 0.0-0.2The [facility], AvonComment on above:Order Comment: No: Do not add to previous drawPerformed By: #### 26341 #### [facility] [address] [facility] [place] [address], USAABS NEUTROPHILS5.0 10*3/uLNormal1.6-7.6The [facility], AvonComment on above:Order Comment: No: Do not add to previous drawPerformed By: #### 06186 #### [facility] [address] [place] [address], USABasophils (Bld) [#/Vol]0.0 10*3/uLNormal0.0-0.2The [facility], AvonComment on above:Order Comment: No: Do not add to previous drawPerformed By: #### 29419 #### [facility] [address] [place] [address], USABasophils/100 WBC (Bld)0.4 %Normal0.0-1.0The [facility], AvonComment on above:Order Comment: No: Do not add to previous drawPerformed By: #### 44714 #### [facility] [address] [place] [address], USAEosinophils (Bld) [#/Vol]0.6 10*3/uLHigh0.0-0.5The [facility], AvonComment on above:Order Comment: No: Do not add to previous drawPerformed By: #### 01561 #### [facility] [address] [place] [address], USAEosinophils/100 WBC (Bld)6.8 %High0.0-6.0The [facility], AvonComment on above:Order Comment: No: Do not add to previous drawPerformed By: #### 46280 #### [facility] [address] [place] [address], USAErythrocyte distribution width (RBC) [Ratio]14.8 %Normal 11.5-15.0The [facility], AvonComment on above:Order Comment: No: Do not add to previous drawPerformed By: #### 45371 #### [facility] [address] [place] [address], USAHematocrit (Bld) [Volume fraction]31.9 %Low39.0-50.0The [facility], AvonComment on above:Order Comment: No: Do not add to previous drawPerformed By: #### 43731 #### [facility] [address] [place] [address], USAHemoglobin (Bld) [Mass/Vol]9.4 g/dLLow13.0-17.0The [facility], AvonComment on above:Order Comment: No: Do not add to previous drawPerformed By: #### 12518 #### [facility] [address] [place] [address], USAIMMATURE GRANS1.7 %High0.0-1.0The [facility], AvonComment on above:Order Comment: No: Do not add to previous draw Performed By: #### 09894 #### [facility] [address] [place] [address], USALymphocytes (Bld) [#/Vol]1.2 10*3/uLNormal1.2-4.0The [facility], AvonComment on above:Order Comment: No: Do not add to previous drawPerformed By: #### 94297 #### [facility] [address] [place] [address], USALymphocytes/100 WBC (Bld)14.8 %Low20.0-45.0The [facility], AvonComment on above:Order Comment: No: Do not add to previous drawPerformed By: #### 11368 #### [facility] [address] [place] [address], [facility] INSTITUTE AT LAS VEGASMCH (RBC) [Entitic mass]26.9 pgLow27.0-33.0The [facility], AvonComment on above:Order Comment: No: Do not add to previous drawPerformed By: #### 78415 #### [facility] [address] [place] [address], USAMCHC (RBC) [Mass/Vol]29.5 g/dLLow32.0-35.0The [facility], AvonComment on above:Order Comment: No: Do not add to previous drawPerformed By: #### 50172 #### [facility] [address] [place] [address], [facility] INSTITUTE AT L[facility] VEGASMCV (RBC) [Entitic vol]91.1 lYDtktll43.0-98.0The [facility], AvonComment on above:Order Comment: No: Do not add to previous drawPerformed By: #### 74958 #### [facility] [address] [place] [address], USAMonocytes (Bld) [#/Vol]1.1 10*3/uLHigh0.1-1.0The [facility], AvonComment on above:Order Comment: No: Do not add to previous drawPerformed By: #### 79985 #### [facility] [address] [place] [address], XLBSFMTD88.4 %High5.0-12.0The [facility], AvonComment on above:Order Comment: No: Do not add to previous drawPerformed By: #### 99208 #### [facility] [address] [place] [address], USANeutrophils/100 WBC (Bld)62.9 %Mjircy42.0-72.0The [facility], AvonComment on above:Order Comment: No: Do not add to previous drawPerformed By: #### 58658 #### [facility] [address] [place] [address], USANucleated RBC/100 WBC (Bld) [Ratio]0 %Normal0-0The [facility], AvonComment on above:Order Comment: No: Do not add to previous drawPerformed By: #### 75478 #### [facility] [address] [place] [address], USAPLAT CLK990 10*3/oWTpgpvs475-204Dkl [facility], AvonComment on above:Order Comment: No: Do not add to previous draw Performed By: #### 60807 #### [facility] [address] [place] [address], USARBC (Bld) [#/Vol]3.50 10*6/uLLow4.20-5.70The [facility], AvonComment on above:Order Comment: No: Do not add to previous drawPerformed By: #### 37075 #### [facility] [address] [place] [address], USAWBC (Bld) [#/Vol]8.03 10*3/uLNormal4.00-10.60The [facility], AvonComment on above:Order Comment: No: Do not add to previous drawPerformed By: #### 82909 #### [facility] [address] [place] [address], USAPOC GLUCOSE LABon 37-92-8846Jmtxccp [Mass/Vol]192 mg/dLHigh 70-100The [facility], AvonComment on above:Performed By: #### 32797, 27252 #### [facility] [address] [place] [address], USAGlucose [Mass/Vol]153 mg/oEObxv19-756Amt [facility], AvonComment on above:Performed By: #### 12898, 56938 #### [facility] [address] [place] [address], USAGlucose [Mass/Vol]80 mg/vTRodrdl65-173Msv [facility], AvonComment on above:Performed By: #### 36595, 01094 #### [facility] [address] [place] [address], USAGlucose [Mass/Vol]48 mg/dLCritically tdh13-219Jkm [facility], AvonComment on above:Order Comment: Left Peural EffusionPerformed By: #### 10985 ####[facility] [place] [address], USAGlucose [Mass/Vol]120 mg/qNEnea92-144Vmx [facility], AvonComment on above:Performed By: #### 80237 #### [facility] [address] [place] [address], USAGlucose [Mass/Vol]112 mg/zDFzmt57-835Mqz [facility], AvonComment on above:Performed By: #### 73440, 17301 #### [facility] [address] [facility] [address], [facility] INSTITUTE AT L[facility] VEGASPOC SARS COV2 ANTIGEN NEGATIVEon 27-09-9714ILO SARS COV2 ANTIGEN NEGCANCELEDNormalNEGATIVEThe [facility], AvonComment on above:Result Comment: The released value NEGATIVE was canceled by ULISES on 07/19/2020 07:11Performed By: #### 88110 #### [facility] [address] [place] [address], [facility] IN[facility] AT L[facility] VEGASPOC SARS COV2 ANTIGEN NEGNegativeNormalNEGATIVEThe [facility], AvonComment on above:Result Comment: Negative Results are presumptive [...] Compliance, or Certificate of Accreditation.Performed By: #### [id number] #### [facility] [address] [place] [address], USABASIC METABOLIC PANELon 34-49-6480Tsbryuj [Mass/Vol]8.2 mg/dLLow8.6-10.3The [facility], AvonComment on above:Order Comment: No: Do not add to previous drawPerformed By: #### 73547 #### [facility] [address] [place] [address], USAChloride [Moles/Vol]101 mmol/ANfzqni31-620Ofb [facility], AvonComment on above:Order Comment: No: Do not add to previous drawPerformed By: #### 39894 #### [facility] [address] [place] [address], USACO2 [Moles/Vol]25 mmol/JAgeeky07-16Mfn [facility], AvonComment on above:Order Comment: No: Do not add to previous draw Performed By: #### 35060 #### [facility] [address] [place] [address], USACreatinine [Mass/Vol]3.64 mg/dLHigh0.70-1.30The [facility], AvonComment on above:Order Comment: No: Do not add to previous drawPerformed By: #### 83238 #### [facility] [address] [place] [address], USAeGFR- Msaeocfo20 ml/min/1.73sq mAbnormal>60The [facility], AvonComment on above:Order Comment: No: Do not add to previous drawPerformed By: #### 40304 #### [facility] [address] [place] [address], USAeGFR- non- Rsewutzb47 ml/min/1.73sq mAbnormal>60The [facility], AvonComment on above:Order Comment: No: Do not add to previous drawPerformed By: #### 31617 #### [facility] [address] [place] [address], USAGlucose [Mass/Vol]124 mg/jAUjdb53-642Pgg [facility], AvonComment on above:Order Comment: No: Do not add to previous drawPerformed By: #### 60329 #### [facility] [address] [place] [address], USAPotassium [Moles/Vol]4.3 mmol/LNormal3.5-5.1The [facility], AvonComment on above:Order Comment: No: Do not add to previous drawPerformed By: #### 65270 #### [facility] [address] [place] [address], USASodium [Moles/Vol]134 mmol/HQtu219-298Hut [facility], AvonComment on above:Order Comment: No: Do not add to previous drawPerformed By: #### 05254 #### [facility] [address] [place] [address], USAUrea nitrogen [Mass/Vol]36 mg/dLHigh7-25The [facility], AvonComment on above:Order Comment: No: Do not add to previous drawPerformed By: #### 10826 #### [facility] [address] [place] [address], USACBC W/DIFFon 34-55-3907GBD IMM GRANS0.2 10*3/uLNormal 0.0-0.2The [facility], AvonComment on above:Order Comment: No: Do not add to previous drawPerformed By: #### 96353 #### [facility] [address] [place] [address], USAABS NEUTROPHILS5.8 10*3/uLNormal1.6-7.6The [facility], AvonComment on above:Order Comment: No: Do not add to previous drawPerformed By: #### 15923 #### [facility] [address] [place] [address], USABasophils (Bld) [#/Vol]0.1 10*3/uLNormal0.0-0.2The [facility], AvonComment on above:Order Comment: No: Do not add to previous drawPerformed By: #### 61538 #### [facility] [address] [facility] [place] [address], USABasophils/100 WBC (Bld)0.6 %Normal0.0-1.0The [facility], AvonComment on above:Order Comment: No: Do not add to previous drawPerformed By: #### 03709 #### [facility] [address] [facility] [place] [address], USAEosinophils (Bld) [#/Vol]0.6 10*3/uLHigh0.0-0.5The [facility], AvonComment on above:Order Comment: No: Do not add to previous drawPerformed By: #### 80437 #### [facility] [address] [facility] [place] [address], USAEosinophils/100 WBC (Bld)7.0 %High0.0-6.0The [facility], AvonComment on above:Order Comment: No: Do not add to previous drawPerformed By: #### 53315 #### [facility] [address] [facility] [place] [address], USAErythrocyte distribution width (RBC) [Ratio]14.8 %Normal 11.5-15.0The [facility], AvonComment on above:Order Comment: No: Do not add to previous drawPerformed By: #### 18759 #### [facility] [address] [facility] [place] [address], USAHematocrit (Bld) [Volume fraction]30.0 %Low39.0-50.0The [facility], AvonComment on above:Order Comment: No: Do not add to previous drawPerformed By: #### 13804 #### [facility] [address] [place] [address], USAHemoglobin (Bld) [Mass/Vol]9.2 g/dLLow13.0-17.0The [facility], AvonComment on above:Order Comment: No: Do not add to previous drawPerformed By: #### 29016 #### [facility] [address] [facility] [address], USAIMMATURE GRANS1.7 %High0.0-1.0The [facility], AvonComment on above:Order Comment: No: Do not add to previous draw Performed By: #### 11056 #### [facility] [address] [place] [address], USALymphocytes (Bld) [#/Vol]1.3 10*3/uLNormal1.2-4.0The [facility], AvonComment on above:Order Comment: No: Do not add to previous drawPerformed By: #### 78257 #### [facility] [address] [address], USALymphocytes/100 WBC (Bld)14.3 %Low20.0-45.0The [facility], AvonComment on above:Order Comment: No: Do not add to previous drawPerformed By: #### 54816 #### [facility] [address] [address], USAMCH (RBC) [Entitic mass]27.3 yvVhlteo98.0-33.0The [facility], AvonComment on above:Order Comment: No: Do not add to previous drawPerformed By: #### 68259 #### [facility] [address] [place] [address], [facility] INSTITUTE AT L[facility] VEGASMCHC (RBC) [Mass/Vol]30.7 g/dLLow32.0-35.0The [facility], AvonComment on above:Order Comment: No: Do not add to previous drawPerformed By: #### 43715 #### [facility] [address] [place] [address], [facility] INSTITUTE AT L[facility] VEGASMCV (RBC) [Entitic vol]89.0 gIJzokge12.0-98.0The [facility], AvonComment on above:Order Comment: No: Do not add to previous drawPerformed By: #### 75401 #### [facility] [address] [place] [address], USAMonocytes (Bld) [#/Vol]1.0 10*3/uLNormal0.1-1.0The [facility], AvonComment on above:Order Comment: No: Do not add to previous drawPerformed By: #### 31163 #### [facility] [address] [place] [address], JXKHJPXE31.9 %Normal5.0-12.0The [facility], AvonComment on above:Order Comment: No: Do not add to previous drawPerformed By: #### 56953 #### [facility] [address] [address], USANeutrophils/100 WBC (Bld)65.5 %Ptwnpd15.0-72.0The [facility], AvonComment on above:Order Comment: No: Do not add to previous drawPerformed By: #### 81028 #### [facility] [address] [place] [address], USANucleated RBC/100 WBC (Bld) [Ratio]0 %Normal0-0The [facility], AvonComment on above:Order Comment: No: Do not add to previous drawPerformed By: #### 04151 #### [facility] [address] [place] [address], USAPLAT [id number] 10*3/nSMpvnwo367-372Otp [facility], AvonComment on above:Order Comment: No: Do not add to previous draw Performed By: #### 05176 #### [facility] [address] [place] [address], USARBC (Bld) [#/Vol]3.37 10*6/uLLow4.20-5.70The [facility], AvonComment on above:Order Comment: No: Do not add to previous drawPerformed By: #### 43688 #### [facility] [address] [place] [address], USAWBC (Bld) [#/Vol]8.86 10*3/uLNormal4.00-10.60The [facility], AvonComment on above:Order Comment: No: Do not add to previous drawPerformed By: #### 25588 #### [facility] [address] [place] [address], USAPOC GLUCOSE LABon 03-21-0566Ncdqfli [Mass/Vol]101 mg/dLHigh 70-100The [facility], AvonComment on above:Performed By: #### 11351, 33220 #### [facility] [address] [place] [address], USAGlucose [Mass/Vol]76 mg/cIEgnkta72-837Dph [facility], AvonComment on above:Performed By: #### 19930, 98171 #### [facility] [address] [place] [address], USAGlucose [Mass/Vol]75 mg/aHXkxapi41-789Lzq [facility], AvonComment on above:Performed By: #### 10456 ####[facility] [place] [address], USAGlucose [Mass/Vol] 198 mg/uVAhtz62-703Fxx [facility], AvonComment on above: Performed By: #### 88950 ####[facility] [place] [address], USAGlucose [Mass/Vol]205 mg/pNMxsm52-421Phf [facility], AvonComment on above:Performed By: #### 00302 #### [facility] [address] [place] [address], USAGlucose [Mass/Vol]187 mg/aZSajo67-177Oll [facility], AvonComment on above:Performed By: #### 89456, 34924 #### [facility] [address] [place] [address], USAGlucose [Mass/Vol]131 mg/mJOtst88-242Xzb [facility], AvonComment on above:Performed By: #### 72102 #### [facility] [facility] [address] [place] [address], USAGlucose [Mass/Vol]75 mg/uETpavhe96-741Ijy [facility], AvonComment on above:Performed By: #### [id number] #### [facility] [address] [place] [address], USAGlucose [Mass/Vol]69 mg/zWWtt52-046Efg [facility] [place] [facility], AvonComment on above:Performed By: #### [id number] ####[facility] [place] [address], USABASIC METABOLIC PANELon 24-44-6294Hwznjst [Mass/Vol]8.4 mg/dLLow8.6-10.3The [facility] [place] [facility], AvonComment on above:Order Comment: No: Do not add to previous draw Performed By: #### 47929 #### [facility] [address] [place] [address], USAChloride [Moles/Vol]105 mmol/PKpqlju64-715Kbg [facility] [place] [facility], AvonComment on above:Order Comment: No: Do not add to previous drawPerformed By: #### 81295 #### [facility] [address] [place] [address], USACO2 [Moles/Vol]24 mmol/OQujpcw95-49Gyh [facility] [place] [facility], AvonComment on above:Order Comment: No: Do not add to previous draw Performed By: #### 55240 #### [facility] [address] [place] [address], USACreatinine [Mass/Vol]4.14 mg/dLHigh0.70-1.30The [facility] [place] [facility], AvonComment on above:Order Comment: No: Do not add to previous drawPerformed By: #### 14782 #### [facility] [address] [place] [address], USAeGFR- Fxgvsomb24 ml/min/1.73sq mAbnormal>60The [facility] [place] [facility], AvonComment on above:Order Comment: No: Do not add to previous drawPerformed By: #### 89174 #### [facility] [address] [place] [address], USAeGFR- non- Vcuztcyb11 ml/min/1.73sq mAbnormal>60The [facility] [place] [facility], AvonComment on above:Order Comment: No: Do not add to previous drawPerformed By: #### [id number] #### [facility] [address] [place] [address], USAGlucose [Mass/Vol]127 mg/yFBayr36-813Kln [facility] [place] [facility], AvonComment on above:Order Comment: No: Do not add to previous drawPerformed By: #### 50204 #### [facility] [address] [place] [address], USAPotassium [Moles/Vol]4.0 mmol/LNormal3.5-5.1The [facility], AvonComment on above:Order Comment: No: Do not add to previous drawPerformed By: #### 89052 #### [facility] [address] [place] [address], USASodium [Moles/Vol]136 mmol/ESzrtkq417-324Icj [facility], AvonComment on above:Order Comment: No: Do not add to previous drawPerformed By: #### 53096 #### [facility] [address] [place] [address], USAUrea nitrogen [Mass/Vol]35 mg/dLHigh7-25The [facility], AvonComment on above:Order Comment: No: Do not add to previous drawPerformed By: #### 21380 #### [facility] [address] [place] [address], USACBC COMPLETE BLOOD COUNTon 93-76-1663Mkcirwinvzs distribution width (RBC) [Ratio]14.6 %Nimvil51.5-15.0The [facility], AvonComment on above:Order Comment: No: Do not add to previous draw Performed By: #### 88268 #### [facility] [address] [address], USAHematocrit (Bld) [Volume fraction]31.8 %Low39.0-50.0The [facility], AvonComment on above:Order Comment: No: Do not add to previous drawPerformed By: #### 69460 #### [facility] [address] [place] [address], USAHemoglobin (Bld) [Mass/Vol]9.7 g/dLLow13.0-17.0The [facility], AvonComment on above:Order Comment: No: Do not add to previous drawPerformed By: #### 48072 #### [facility] [address] [place] [address], USAMCH (RBC) [Entitic mass]27.2 qfRzdwxp29.0-33.0The [facility], AvonComment on above:Order Comment: No: Do not add to previous drawPerformed By: #### 88219 #### [facility] [address] [place] [address], [facility] AT L[facility] VEGASMCHC (RBC) [Mass/Vol]30.5 g/dLLow32.0-35.0The [facility], AvonComment on above:Order Comment: No: Do not add to previous drawPerformed By: #### 87862 #### [facility] [address] [place] [address], [facility] IN[facility] AT L[facility] VEGASMCV (RBC) [Entitic vol]89.3 tWTjonio96.0-98.0The [facility], AvonComment on above:Order Comment: No: Do not add to previous drawPerformed By: #### 88303 #### [facility] [address] [place] [address], USANucleated RBC/100 WBC (Bld) [Ratio]0 %Normal0-0The [facility], AvonComment on above:Order Comment: No: Do not add to previous drawPerformed By: #### 10106 #### [facility] [address] [place] [address], USAPLAT [id number] 10*3/tVCvwqfc032-869Dvq [facility], AvonComment on above:Order Comment: No: Do not add to previous draw Performed By: #### 75054 #### [facility] [address] [address], USARBC (Bld) [#/Vol]3.56 10*6/uLLow4.20-5.70The [facility] [place] [facility], AvonComment on above:Order Comment: No: Do not add to previous drawPerformed By: #### 31444 #### [facility] [address] [place] [address], USAWBC (Bld) [#/Vol]8.88 10*3/uLNormal4.00-10.60The [facility], AvonComment on above:Order Comment: No: Do not add to previous drawPerformed By: #### 81044 #### [facility] [address] [place] [address], USAPOC GLUCOSE LABon 75-71-1725Ibncwdw [Mass/Vol]94 mg/dL Gmcuqs15-924Qao [facility], AvonComment on above:Performed By: #### 21478 #### [facility] [address] [place] [address], USAGlucose [Mass/Vol]62 mg/yZHbc11-820Ezs [facility], AvonComment on above:Performed By: #### 85972, 36421 #### [facility] [address] [place] [address], USAGlucose [Mass/Vol]80 mg/dPMszyub82-517Yia [facility], AvonComment on above:Performed By: #### 64470, 92653 #### [facility] [address] [place] [address], USAGlucose [Mass/Vol]99 mg/jJVxhqan56-719Ary [facility] [place] [facility], AvonComment on above:Performed By: #### 42763 ####[facility] [place] [address], USAGlucose [Mass/Vol] 203 mg/bKNacp84-535Tiy [facility] [place] [facility], AvonComment on above: Performed By: #### 40226 ####[facility] [place] [address], USAGlucose [Mass/Vol]151 mg/uCBdfp80-387Qjp [facility] [place] [facility], AvonComment on above:Performed By: #### 47477, 51454 #### [facility] [address] [place] [address], USAANAon 08-48-3036QWG SCREEN<1:40Normal<1:40,1:40The [facility] [place] [facility], AvonComment on above:Order Comment: No: Do not add to previous drawPerformed By: #### 47343 #### [facility] [address] [place] [address], USAANCA IGG WITH REFLEX [id number] 36-52-6540ARMF<1:20Normal <1:20The [facility], AvonComment on above:Order Comment: No: Do not add [...] collagen vascular disease or arthritis. Performed By: [employer] [address] [place] [id number] Storage Receipt Poster: CATHY Ramirez METABOLIC PANELon 07-15-2020 Calcium [Mass/Vol]8.5 mg/dLLow8.6-10.3The [facility], [place] Comment on above:Order Comment: No: Do not add to previous drawPerformed By: #### 80598 #### [facility] [address] [place] [address], USAChloride [Moles/Vol]103 mmol/LFclnnd33-834Qnm [facility], AvonComment on above:Order Comment: No: Do not add to previous drawPerformed By: #### 35299 #### [facility] [address] [place] [address], USACO2 [Moles/Vol]23 mmol/SVzpakd60-51Csr [facility], AvonComment on above:Order Comment: No: Do not add to previous draw Performed By: #### 10175 #### [facility] [address] [place] [address], USACreatinine [Mass/Vol]4.38 mg/dLHigh0.70-1.30The [facility], AvonComment on above:Order Comment: No: Do not add to previous drawPerformed By: #### 88209 #### [facility] [address] [place] [address], USAeGFR- Bfurzrcw19 ml/min/1.73sq mAbnormal>60The [facility], AvonComment on above:Order Comment: No: Do not add to previous drawPerformed By: #### 35526 #### [facility] [address] [place] [address], USAeGFR- non- Xaqxqojr49 ml/min/1.73sq mAbnormal>60The [facility], AvonComment on above:Order Comment: No: Do not add to previous drawPerformed By: #### 71366 #### [facility] [address] [place] [address], USAGlucose [Mass/Vol]154 mg/tUNjsn60-879Iep [facility], AvonComment on above:Order Comment: No: Do not add to previous drawPerformed By: #### 03032 #### [facility] [address] [place] [address], USAPotassium [Moles/Vol]4.5 mmol/LNormal3.5-5.1The [facility] [place] [facility], AvonComment on above:Order Comment: No: Do not add to previous drawPerformed By: #### 82173 #### [facility] [address] [place] [address], USASodium [Moles/Vol]135 mmol/CAzs814-575Ype [facility] [place] [facility], AvonComment on above:Order Comment: No: Do not add to previous drawPerformed By: #### 72344 #### [facility] [address] [place] [address], USAUrea nitrogen [Mass/Vol]32 mg/dLHigh7-25The [facility] [place] [facility], AvonComment on above:Order Comment: No: Do not add to previous drawPerformed By: #### 90074 #### [facility] [address] [place] [address], [facility] VEGASC REACTIVE PROTEINon 96-43-8684PMN [Mass/Vol]138.0 mg/LHigh 0.0-7.0The [facility] [place] [facility], AvonComment on above:Order Comment: FROM [id number] By: #### 51679 #### [facility] [address] [place] [address], [facility] IN[facility] AT L[facility] VEGASCBC W/DIFFon 09-48-6058YTT IMM GRANS0.1 10*3/uLNormal 0.0-0.2The [facility] [place] [facility], AvonComment on above:Performed By: #### 11818 #### [facility] [address] [place] [address], USAABS NEUTROPHILS7.3 10*3/uLNormal1.6-7.6The [facility] [place] [facility], AvonComment on above:Performed By: #### 54517 #### [facility] [address] [place] [address], USABasophils (Bld) [#/Vol]0.0 10*3/uLNormal0.0-0.2The [facility] [place] [facility], AvonComment on above:Performed By: #### 26663 #### [facility] [address] [place] [address], USABasophils/100 WBC (Bld)0.3 %Normal0.0-1.0The [facility], AvonComment on above:Performed By: #### 62428 #### [facility] [address] [place] [address], USAEosinophils (Bld) [#/Vol]0.5 10*3/uLNormal0.0-0.5The [facility], AvonComment on above:Performed By: #### 01537 #### [facility] [address] [facility] [place] [address], USAEosinophils/100 WBC (Bld)5.1 %Normal0.0-6.0The [facility] [place] [facility], AvonComment on above:Performed By: #### 79022 #### [facility] [address] [facility] [place] [address], USAErythrocyte distribution width (RBC) [Ratio]14.9 %Normal 11.5-15.0The [facility] [place] [facility], AvonComment on above:Performed By: #### 47525 #### [facility] [address] [facility] [place] [address], USAHematocrit (Bld) [Volume fraction]33.0 %Low39.0-50.0The [facility] [place] [facility], AvonComment on above:Performed By: #### 70368 #### [facility] [address] [facility] [place] [address], USAHemoglobin (Bld) [Mass/Vol]9.9 g/dLLow13.0-17.0The [facility] [place] [facility], AvonComment on above:Performed By: #### 04720 #### [facility] [address] [facility] [place] [address], USAIMMATURE GRANS1.4 %High0.0-1.0The [facility] [place] [facility], AvonComment on above:Performed By: #### 17614 #### [facility] [address] [facility] [place] [address], USALymphocytes (Bld) [#/Vol]1.1 10*3/uLLow1.2-4.0The [facility] [place] [facility], AvonComment on above:Performed By: #### 45007 #### [facility] [address] [place] [address], USALymphocytes/100 WBC (Bld)11.0 %Low20.0-45.0The [facility] [place] [facility], AvonComment on above:Performed By: #### 66851 #### [facility] [address] [place] [address], [facility] (RBC) [Entitic mass]27.0 azGjkzfd66.0-33.0The [facility] [place] [facility], AvonComment on above:Performed By: #### 98855 #### [facility] [address] [place] [address], [facility] L[facility] VEGASMCHC (RBC) [Mass/Vol]30.0 g/dLLow32.0-35.0The [facility] [place] [facility], AvonComment on above:Performed By: #### 30463 #### [facility] [address] [address], [facility] AT L[facility] VEGASMCV (RBC) [Entitic vol]90.2 kOCtxfbr10.0-98.0The [facility] [place] [facility], AvonComment on above:Performed By: #### 27028 #### [facility] [address] [address], USAMonocytes (Bld) [#/Vol]1.1 10*3/uLHigh0.1-1.0The [facility] [place] [facility], AvonComment on above:Performed By: #### 33395 #### [facility] [address] [place] [address], WSGKZCKF91.9 %Normal5.0-12.0The [facility] [place] [facility], AvonComment on above:Performed By: #### 63405 #### [facility] [address] [place] [address], USANeutrophils/100 WBC (Bld)71.3 %Skapzg09.0-72.0The [facility] [place] [facility], AvonComment on above:Performed By: #### 15959 #### [facility] [address] [place] [address], USANucleated RBC/100 WBC (Bld) [Ratio]0 %Normal0-0The [facility] [place] [facility], AvonComment on above:Performed By: #### 88222 #### [facility] [address] [place] [address], USAPLAT EBG075 10*3/tWRqslzy892-427Jco [facility] [place] [facility], AvonComment on above:Performed By: #### 36721 #### [facility] [address] [place] [address], USARBC (Bld) [#/Vol]3.66 10*6/uLLow4.20-5.70The [facility] [place] [facility], AvonComment on above:Performed By: #### 85439 #### [facility] [address] [place] [address], USAWBC (Bld) [#/Vol]10.23 10*3/uLNormal4.00-10.60The [facility] [place] [facility], AvonComment on above:Performed By: #### 03445 #### [facility] [address] [address], USACOMPLEMENT 306-84-8807SWSXZAPEMD 3108 mg/bOUvbeiw69-384 The [facility] [place] [facility], AvonComment on above:Order Comment: No: Do not add to previous drawPerformed By: #### 96138 #### [facility] [address] [place] [address], USACOMPLEMENT 400-40-7475RLEJWTNQAQ 431 mg/mXQojoxa12-69Lhp [facility] [place] [facility], AvonComment on above:Order Comment: No: Do not add to previous drawPerformed By: #### 91415 #### [facility] [address] [place] [address], USAGLOMR BASMT MEMBRon 63-76-6604VZXMG BASMT MBRNNegative AbnormalNEGATIVEThe [facility] [place] [facility], AvonComment on above:Order Comment: No: Do not add [...] CLIA to perform high-complexity testing.Performed By: #### 10602 #### [facility] [address] [facility] [address], USAPOC GLUCOSE LABon 73-73-2217Nwsjamx [Mass/Vol]107 mg/dLHigh 70-100The [facility] [place] [facility], AvonComment on above:Performed By: #### 80682, 27961 #### [facility] [address] [facility] [place] [address], USAGlucose [Mass/Vol]84 mg/sRKzihgw11-228Xfj [facility] [place] [facility], AvonComment on above:Performed By: #### 40169 #### [facility] [address] [facility] [place] [address], USAGlucose [Mass/Vol]164 mg/jNZkog70-157Box [facility] [place] [facility], AvonComment on above:Performed By: #### 78141 ####[facility] [place] [address], USAGlucose [Mass/Vol] 141 mg/sJGthf14-712Dgm [facility], AvonComment on above: Performed By: #### 38683, 15012 #### [facility] [address] [facility] [place] [address], USAPORTABLE CHEST 1 VIEWon 89-93-7666UFTISKLE CHEST 1 VIEW [facility] [place] Department of Radiology [address] [place] [address] Patient Name: RASHARD LYMAN : 1960 Sex: M Age: Race: White Pt. Location: [address] [place] [address] Patient Status: I Ordered Date: 07/15/2020 7:00:00 [...] exam. Electronically signed: Nir Swartz. Transcribed by: [email or web address], User Resident: Electronically Signed by: NIR SWARTZ @ 07/15/2020 07:34 AMNormalGerman HospitalComment on above:Order Comment: evaluate for Effusion*AFB CULTUREon 07-14-2020*AFB CULTUREClinical Report: (D) Specimen/Source: FLUID/PLEURAL FLUID Collected: 07/14/2020 13:03 Status: Final Last Updated: 08/26/2020 08:52 (1) Left Peural Effusion AFB (Final) No Acid Fast Bacilli Seen CULT RES (Final) No growth after 42 days of incubationWexner Medical CenterComment on above:Order Comment: Left Peural EffusionPerformed By: #### 67261 #### [facility] [address]*ANAEROBIC CULTUREon 07-14-2020*ANAEROBIC CULTUREClinical Report: (D) Specimen/Source: FLUID/PLEURAL FLUID Collected: 07/14/2020 13:03 Status: Final Last Updated: 07/19/2020 08:08 (1) Left Peural Effusion CULT RES (Final) No Anaerobes Isolated 5 DaysWexner Medical CenterComment on above:Order Comment: Left Peural EffusionPerformed By: #### 51690 #### [facility] [address]*BODY FLUID CULTUREon 07-14-2020*BODY FLUID CULTUREClinical Report: (D) Specimen/Source: FLUID/PLEURAL FLUID Collected: 07/14/2020 13:03 Status: Final Last Updated: 07/19/2020 07:53 (1) Left Peural Effusion GRAM (Final) Polys PRESENT No Bacteria Seen CYTOSPUN (Final) This Gram Stain was done on a cytocentrifuged specimen CULT RES (Final) No Growth Day 5NoMcKitrick HospitalComment on above: Order Comment: Left Peural EffusionPerformed By: #### [id number] #### [address]*FUNGAL CULTUREon 07-14-2020*FUNGAL CULTUREClinical Report: (D) Specimen/Source: FLUID/PLEURAL FLUID Collected: 07/14/2020 13:03 Status: Final Last Updated: 08/15/2020 08:41 (1) Left Peural Effusion FS (Final) No Yeast or Fungal Elements Seen CULT RES (Final) Culture negative for fungusWexner Medical CenterComment on above:Order Comment: Left Peural EffusionPerformed By: #### 45603 #### [facility] [address]*VIRAL NON RESPIRATORY CULTUREon 86-76-9905Roknpcxv identified Cx Nom (Unsp spec)NormalThe [facility] [place] [facility] [place] Comment on above:Order Comment: Left Peural EffusionResult [...] Virus detected by Enzyme Linked Virus Inducible S.[facility] Tiffin HospitalComment on above: Order Comment: Left Peural EffusionResult Comment: Test Performed by [employer] [address] - Released 07/20/2020 14:10 Result changed by IF on 07/17/2020 14:17. The previous value was Test Performed by [employer] [address] [phone].. Result changed by IF on 07/18/2020 12:17. The previous value was Test Performed by [employer] [address] [phone].. Result changed by IF on 07/20/2020 14:10. The previous value was Test Performed by [employer] [address] [phone]..REPORT STATUSFINAL 07/20/2020[facility] Comment on above:Order Comment: Left Peural EffusionResult Comment: Result changed by IF on 07/20/2020 14:10. The previous value was Preliminary.APTTon 99-09-3183zHLB Coag (Bld) [Time]41.7 sHigh25.0-35.0The [facility] [place] [facility], AvonComment on above:Order Comment: No: Do not add [...] BE USED FOR THIS PURPOSE.Performed By: #### 61529 #### [facility] [address] [place] [address], USAaPTT Coag (Bld) [Time]44.9 sHigh25.0-35.0The [facility] [place] [facility], AvonComment on above:Order Comment: No: Do not add [...] BE USED FOR THIS PURPOSE.Performed By: #### 49738, 97646 #### [facility] [address] [place] [address], USABASIC METABOLIC PANELon 35-08-2778Aqcgxmw [Mass/Vol]8.6 mg/dLNormal8.6-10.3The [facility] [place] [facility], AvonComment on above:Order Comment: No: Do not add to previous drawPerformed By: #### 21190 #### [facility] [address] [place] [address], USAChloride [Moles/Vol]102 mmol/NZutfly85-373Mhs [facility] [place] [facility], AvonComment on above:Order Comment: No: Do not add to previous drawPerformed By: #### 81101 #### [facility] [address] [place] [address], USACO2 [Moles/Vol]24 mmol/TKgyyns99-22Mgs [facility] [place] [facility], AvonComment on above:Order Comment: No: Do not add to previous draw Performed By: #### 67215 #### [facility] [address] [place] [address], USACreatinine [Mass/Vol]3.44 mg/dLHigh0.70-1.30The [facility] [place] [facility], AvonComment on above:Order Comment: No: Do not add to previous drawPerformed By: #### 35812 #### [facility] [address] [place] [address], USAeGFR- Sfhoiiva25 ml/min/1.73sq mAbnormal>60The [facility] [place] [facility], AvonComment on above:Order Comment: No: Do not add to previous drawPerformed By: #### 03466 #### [facility] [address] [place] [address], USAeGFR- non- Blqkrlow87 ml/min/1.73sq mAbnormal>60The [facility] [place] [facility], AvonComment on above:Order Comment: No: Do not add to previous drawPerformed By: #### 15731 #### [facility] [address] [place] [address], USAGlucose [Mass/Vol]355 mg/qENnhd32-297Mtq [facility] [place] [facility], AvonComment on above:Order Comment: No: Do not add to previous drawPerformed By: #### 22635 #### [facility] [address] [place] [address], USAPotassium [Moles/Vol]4.6 mmol/LNormal3.5-5.1The [facility] [place] [facility], AvonComment on above:Order Comment: No: Do not add to previous drawPerformed By: #### 66660 #### [facility] [address] [place] [address], USASodium [Moles/Vol]133 mmol/YGbb767-982Csj [facility] [place] [facility], AvonComment on above:Order Comment: No: Do not add to previous drawPerformed By: #### 31745 #### [facility] [address] [place] [address], USAUrea nitrogen [Mass/Vol]27 mg/dLHigh7-25The [facility] [place] [facility], AvonComment on above:Order Comment: No: Do not add to previous drawPerformed By: #### [id number] #### [facility] [address] [address], USABNP (B-TYPE NATRIURETIC PEPTIDE)on 15-80-7214Rkzesgczuzm peptide B (Bld) [Mass/Vol]19 pg/mLNormal0-100The [facility], AvonComment on above:Order Comment: Left Peural EffusionResult Comment: Given the appropriate clinical setting a BNP result of >100 pg/mL indicates congestive heart failure.Performed By: #### [id number] #### [facility] [address] [facility] [place] [address], USACBC COMPLETE BLOOD COUNTon 30-38-8634Jvntkflcebh distribution width (RBC) [Ratio]14.6 %Ymhglv19.5-15.0The [facility], AvonComment on above:Order Comment: No: Do not add to previous draw Performed By: #### [id number] #### [facility] [address] [facility] [place] [address], USAHematocrit (Bld) [Volume fraction]35.3 %Low39.0-50.0The [facility], AvonComment on above:Order Comment: No: Do not add to previous drawPerformed By: #### [id number] #### [facility] [address] [facility] [place] [address], USAHemoglobin (Bld) [Mass/Vol]11.1 g/dLLow13.0-17.0The [facility], AvonComment on above:Order Comment: No: Do not add to previous drawPerformed By: #### [id number] #### [facility] [address] [facility] [place] [address], USAMCH (RBC) [Entitic mass]27.5 kzOcevic66.0-33.0The [facility], AvonComment on above:Order Comment: No: Do not add to previous drawPerformed By: #### [id number] #### [facility] [address] [address], [facility] AT L[facility] VEGASMCHC (RBC) [Mass/Vol]31.4 g/dLLow32.0-35.0The [facility], AvonComment on above:Order Comment: No: Do not add to previous drawPerformed By: #### [id number] #### [facility] [address] [address], [facility] IN[facility] AT L[facility] VEGASMCV (RBC) [Entitic vol]87.6 oMCwvqnh65.0-98.0The [facility], AvonComment on above:Order Comment: No: Do not add to previous drawPerformed By: #### [id number] #### [facility] [address] [address], USANucleated RBC/100 WBC (Bld) [Ratio]0 %Normal0-0The [facility], AvonComment on above:Order Comment: No: Do not add to previous drawPerformed By: #### [id number] #### [facility] [address] [address], USAPLAT [id number] 10*3/kPRowsvg701-643Pqp [facility], AvonComment on above:Order Comment: No: Do not add to previous draw Performed By: #### [id number] #### [facility] [address] [address], USARBC (Bld) [#/Vol]4.03 10*6/uLLow4.20-5.70The [facility], AvonComment on above:Order Comment: No: Do not add to previous drawPerformed By: #### [id number] #### [facility] [address] [place] [address], USAWBC (Bld) [#/Vol]12.59 10*3/uLHigh4.00-10.60The [facility], AvonComment on above:Order Comment: No: Do not add to previous drawPerformed By: #### [id number] #### [facility] [address] [place] [address], [facility] INSTITUTE AT L[facility] VEGASCBC W/DIFFon 92-04-4426ZGE IMM GRANS0.2 10*3/uLNormal 0.0-0.2The [facility], AvonComment on above:Order Comment: No: Do not add to previous drawPerformed By: #### [id number] #### [facility] [address] [place] [address], USAABS NEUTROPHILS7.9 10*3/uLHigh1.6-7.6The [facility], AvonComment on above:Order Comment: No: Do not add to previous drawPerformed By: #### [id number] #### [facility] [address] [place] [address], USABasophils (Bld) [#/Vol]0.1 10*3/uLNormal0.0-0.2The [facility], AvonComment on above:Order Comment: No: Do not add to previous drawPerformed By: #### 19607 #### [facility] [address] [facility] [place] [address], USABasophils/100 WBC (Bld)0.5 %Normal0.0-1.0The [facility], AvonComment on above:Order Comment: No: Do not add to previous drawPerformed By: #### [id number] #### [facility] [address] [facility] [place] [address], USAEosinophils (Bld) [#/Vol]0.5 10*3/uLNormal0.0-0.5The [facility], AvonComment on above:Order Comment: No: Do not add to previous drawPerformed By: #### [id number] #### [facility] [address] [facility] [place] [address], USAEosinophils/100 WBC (Bld)4.3 %Normal0.0-6.0The [facility], AvonComment on above:Order Comment: No: Do not add to previous drawPerformed By: #### [id number] #### [facility] [address] [place] [id number], USAErythrocyte distribution width (RBC) [Ratio]14.6 %Normal 11.5-15.0The [facility], AvonComment on above:Order Comment: No: Do not add to previous drawPerformed By: #### [id number] #### [facility] [address] [address], USAHematocrit (Bld) [Volume fraction]34.2 %Low39.0-50.0The [facility], AvonComment on above:Order Comment: No: Do not add to previous drawPerformed By: #### [id number] #### [facility] [address] [facility] [place] [address], USAHemoglobin (Bld) [Mass/Vol]10.3 g/dLLow13.0-17.0The [facility], AvonComment on above:Order Comment: No: Do not add to previous drawPerformed By: #### [id number] #### [facility] [address] [facility] [place] [address], USAIMMATURE GRANS1.4 %High0.0-1.0The [facility], AvonComment on above:Order Comment: No: Do not add to previous draw Performed By: #### [id number] #### [facility] [address] [facility] [place] [address], USALymphocytes (Bld) [#/Vol]1.3 10*3/uLNormal1.2-4.0The [facility], AvonComment on above:Order Comment: No: Do not add to previous drawPerformed By: #### [id number] #### [facility] [address] [place] [address], USALymphocytes/100 WBC (Bld)11.3 %Low20.0-45.0The [facility], AvonComment on above:Order Comment: No: Do not add to previous drawPerformed By: #### [id number] #### [facility] [address] [place] [address], [facility]UMRIGHTH (RBC) [Entitic mass]27.0 zsNkrnca88.0-33.0The [facility], AvonComment on above:Order Comment: No: Do not add to previous drawPerformed By: #### 75016 #### [facility] [address] [place] [address], [facility] L[facility] VEGASMCHC (RBC) [Mass/Vol]30.1 g/dLLow32.0-35.0The [facility], AvonComment on above:Order Comment: No: Do not add to previous drawPerformed By: #### [id number] #### [facility] [address] [place] [address], [facility] DRUMRIGHTV (RBC) [Entitic vol]89.5 wRQtqtzi18.0-98.0The [facility], AvonComment on above:Order Comment: No: Do not add to previous drawPerformed By: #### [id number] #### [facility] [address] [place] [address], USAMonocytes (Bld) [#/Vol]1.4 10*3/uLHigh0.1-1.0The [facility], AvonComment on above:Order Comment: No: Do not add to previous drawPerformed By: #### [id number] #### [facility] [address] [place] [address], XILMTDZQ54.6 %High5.0-12.0The [facility], AvonComment on above:Order Comment: No: Do not add to previous drawPerformed By: #### [id number] #### [facility] [address] [place] [address], USANeutrophils/100 WBC (Bld)69.9 %Znofpu16.0-72.0The [facility], AvonComment on above:Order Comment: No: Do not add to previous drawPerformed By: #### [id number] #### [facility] [address] [place] [address], USANucleated RBC/100 WBC (Bld) [Ratio]0 %Normal0-0The [facility], AvonComment on above:Order Comment: No: Do not add to previous drawPerformed By: #### 64711 #### [facility] [address] [address], USAPLAT OXC306 10*3/kRDqimqj767-206Doo [facility], AvonComment on above:Order Comment: No: Do not add to previous draw Performed By: #### 96959 #### [facility] [address] [address], USARBC (Bld) [#/Vol]3.82 10*6/uLLow4.20-5.70The [facility], AvonComment on above:Order Comment: No: Do not add to previous drawPerformed By: #### [id number] #### [facility] [address] [address], USAWBC (Bld) [#/Vol]11.28 10*3/uLHigh4.00-10.60The [facility], AvonComment on above:Order Comment: No: Do not add to previous drawPerformed By: #### 78073 #### [facility] [address] [address], USACOMP METABOLIC PANELon 53-50-8123Jdvcbqx [Mass/Vol]3.1 g/dL Low3.5-5.7The [facility], AvonComment on above:Order Comment: No: Do not add to previous drawPerformed By: #### 52225 #### [facility] [address] [place] [address], USAALKALINE ETBQLP12 IU/BKmorqg73-335Zpm [facility], AvonComment on above:Order Comment: No: Do not add to previous draw Performed By: #### [id number] #### [facility] [address] [place] [address], USAALT [Catalytic activity/Vol]8 U/LNormal7-52The [facility], AvonComment on above:Order Comment: No: Do not add to previous drawPerformed By: #### [id number] #### [facility] [address] [place] [address], USAAST [Catalytic activity/Vol]11 U/YAhu74-14Fam [facility], AvonComment on above:Order Comment: No: Do not add to previous drawPerformed By: #### 10776 #### [facility] [address] [place] [address], USABilirubin [Mass/Vol]0.3 mg/dLNormal0.3-1.0The [facility], AvonComment on above:Order Comment: No: Do not add to previous drawPerformed By: #### [id number] #### [facility] [address] [place] [address], USACalcium [Mass/Vol]8.8 mg/dLNormal8.6-10.3The [facility], AvonComment on above:Order Comment: No: Do not add to previous drawPerformed By: #### 12643 #### [facility] [address] [place] [address], USAChloride [Moles/Vol]101 mmol/IKizgpb73-014Tmy [facility], AvonComment on above:Order Comment: No: Do not add to previous drawPerformed By: #### [id number] #### [facility] [address] [place] [address], USACO2 [Moles/Vol]22 mmol/GDgtqpy04-21Gdb [facility], AvonComment on above:Order Comment: No: Do not add to previous draw Performed By: #### 15611 #### [facility] [address] [place] [address], USACreatinine [Mass/Vol]3.38 mg/dLHigh0.70-1.30The [facility], AvonComment on above:Order Comment: No: Do not add to previous drawPerformed By: #### 17725 #### [facility] [address] [place] [address], USAeGFR- Bgnujhit46 ml/min/1.73sq mAbnormal>60The [facility], AvonComment on above:Order Comment: No: Do not add to previous drawPerformed By: #### 40029 #### [facility] [address] [place] [address], USAeGFR- non- Etpefdmq97 ml/min/1.73sq mAbnormal>60The [facility], AvonComment on above:Order Comment: No: Do not add to previous drawPerformed By: #### [id number] #### [facility] [address] [place] [address], USAGlucose [Mass/Vol]324 mg/uCTgwb68-631Lnv [facility], AvonComment on above:Order Comment: No: Do not add to previous drawPerformed By: #### [id number] #### [facility] [address] [place] [address], USAPotassium [Moles/Vol]4.5 mmol/LNormal3.5-5.1The [facility], AvonComment on above:Order Comment: No: Do not add to previous drawPerformed By: #### 68059 #### [facility] [address] [place] [address], USAProtein [Mass/Vol]6.7 g/dLNormal6.0-8.3The [facility], AvonComment on above:Order Comment: No: Do not add to previous drawPerformed By: #### [id number] #### [facility] [address] [place] [address], USASodium [Moles/Vol]131 mmol/QPac928-118Ggw [facility], AvonComment on above:Order Comment: No: Do not add to previous drawPerformed By: #### [id number] #### [facility] [address] [address], USAUrea nitrogen [Mass/Vol]27 mg/dLHigh7-25The [facility], AvonComment on above:Order Comment: No: Do not add to previous drawPerformed By: #### [id number] #### [facility] [address] [address], USACREATININE URINE RANDOMon 47-36-9259Izwrywedel (U) [Mass/Vol]101.0 mg/dLNoCleveland Clinic Foundatione [facility], AvonComment on above:Order Comment: No: Do not add to previous drawResult Comment: There are no established reference values for random urine specimensPerformed By: #### 90800 #### [facility] [address] [place] [address], USAFLUID CELL COUNTon 77-66-7690Pkvukaale/100 WBC (Bld)1 % NormalThe [facility], AvonComment on above:Performed By: #### 84180 #### [facility] [address] [address], USAEosinophils/100 WBC (Bld)11 %NormalThe [facility], AvonComment on above:Performed By: #### [id number] #### [facility] [address] [place] [address], USALymphocytes/100 WBC (Bld)49 %NormalThe [facility], AvonComment on above:Performed By: #### 69192 #### [facility] [address] [place] [address], BQGLDTAOGZIVJH02 %NormalThe [facility], AvonComment on above:Performed By: #### 09167 #### [facility] [address] [place] [address], USAOTHER F1Diff done by cytosWVUMedicine Barnesville HospitalComment on above:Performed By: #### 84035 #### [facility] [address] [place] [address], USAOTHER P9Zrcegdj by Mac Rodriguez M.D.NormalThe [facility], AvonComment on above:Result Comment: Result changed by [facility] on 07/15/2020 13:33. The previous value was Preliminary report; verified report to follow.Performed By: #### [id number] #### [facility] [address] [place] [address], [id number] RBC/[facility] County Memorial HospitalComment on above:Performed By: #### 69790 #### [facility] [address] [place] [address], SIGNSNS24 %NormalThe [facility] [place] Comment on above:Performed By: #### 92748 #### [facility] [address] [place] [address], USASOURCEThoracentesisWexner Medical CenterComment on above:Performed By: #### 75866 #### [facility] [address] [place] [address], USATOTAL HANVPF4JBbdrhwXbcWexner Medical Center Comment on above:Performed By: #### 12660 #### [facility] [address] [place] [address], [id number] WBC/uLNormalThe [facility] [place] Comment on above:Result Comment: Some reference interval(s) and other method performance specifications have not been established for analytes on this body fluid. The test result must be integrated into the clinical context for interpretation.Performed By: #### [id number] #### [facility] [address] [place] [address], USAGLUCOSE FLUID MISCon 96-41-2785Fomhyou [Mass/Vol]326 mg/dL NormalThe [facility], AvonComment on above:Result Comment: The reference range and other method performance specifications have not been established for this test in fluids. the test result should be integrated into the clinical context for interpretation.Performed By: #### [id number] #### [facility] [address] [place] [address], USAHEMOGLOBIN A1Con 97-29-5180Wvempjz [Moles/Vol]295 mmol/L NormalThe [facility], AvonComment on above:Order Comment: Left Peural EffusionPerformed By: #### [id number] #### [facility] [address] [place] [address], NUXUdJ1m (Bld) [Mass fraction]11.9 %High4.0-6.0The [facility], AvonComment on above:Order Comment: Left Peural Effusion Performed By: #### 28775 #### [facility] [address] [place] [address], USAHEPATITIS B SURFACE ANTIGEN QUALon 59-38-9877LOG B SURF AG QUALNon-ReactiveNormalNONREACTIVEThe [facility], AvonComment on above:Order Comment: No: Do not add to previous drawPerformed By: #### 61313 #### [facility] [address] [place] [address], USAHEPATITIS C ANTIBODYon 00-21-9581WZVM-HCVNon-ReactiveNormal NONREACTIVEThe [facility], AvonComment on above:Order Comment: No: Do not add to previous drawPerformed By: #### 05827 #### [facility] [address] [place] [address], USALDH BLOODon 59-19-1674FYD097 Units/EPkrtjy257-494Acw [facility], AvonComment on above:Order Comment: Left Peural EffusionPerformed By: #### 12835 #### [facility] [address] [place] [address], NJANHJ766 Units/BVod254-873Vud [facility], AvonComment on above:Order Comment: No: Do not add to previous drawPerformed By: #### [id number] #### [facility] [address] [place] [address], USALDH FLUIDon 83-02-1381KHK916 Units/LNormalThe [facility], AvonComment on above:Result Comment: The reference range and other method performance specifications have not been established for this test in fluids. the test result should be integrated into the clinical context for interpretation.Performed By: #### 78435 #### [facility] [address] [place] [address], USALIPID PROFILEon 03-75-9116Zkjpqsmfiof [Mass/Vol]95 mg/dLLow 120-200The [facility], AvonComment on above:Order Comment: No: Do not add to previous drawResult Comment: CHOLESTEROL REFERENCE RANGE: 20 YEARS AND OLDER CARDIOVASCULAR RISK Less than 200 mg/dl Low Risk 200 to 239 mg/dl Borderline Risk 240 mg/dl and greater High RiskPerformed By: #### 82776 #### [facility] [address] [place] [address], USACholesterol in HDL [Mass/Vol]36 mg/lLMvkwru52-24Cri [facility], AvonComment on above:Order Comment: No: Do not add to previous drawResult Comment: Slight variation in normal range could be due to gender and/or age. HDL CHOLESTEROL REFERENCE RANGE: 20 years and older Cardiovascular Risk > or =60 mg/dL Desirable 40 TO 59 mg/dL Low Risk <40 mg/dL High RiskPerformed By: #### [id number] #### [facility] [address] [address], USACholesterol in LDL [Mass/Vol]37 mg/dLNormal0-130The [facility], AvonComment on above:Order Comment: No: Do not add to previous drawResult Comment: LDL IS A CALCULATION LDL IS ONLY VALID IF THE TRIG IS LESS THAN 400.Performed By: #### 41019 #### [facility] [address] [place] [address], USACholesterol.total/Cholesterol in HDL [Mass ratio]2.6 {ratio}Normal0.0-4.5The [facility], AvonComment on above: Order Comment: No: Do not add to previous drawPerformed By: #### 14424 #### [facility] [address] [facility] [address], USANON-HDL MXGECLKPBKG57 mg/dLNormalThe [facility], AvonComment on above:Order Comment: No: Do not add to previous draw Performed By: #### 02593 #### [facility] [address] [facility] [place] [address], USATriglyceride [Mass/Vol]109 mg/fLDdinmh00-652Dfl [facility], AvonComment on above:Order Comment: No: Do not add to previous drawResult Comment: TRIGLYCERIDE REFERENCE RANGE: 20 YEARS AND OLDER CARDIOVASCULAR RISK LESS THAN 150 mg/dl LOW RISK 150 TO 199 mg/dl BORDERLINE RISK 200 mg/dl AND GREATER HIGH RISKPerformed By: #### [id number] #### [facility] [address] [facility] [place] [address], USAVLDL CHOL22 mg/dLNormal0-40The [facility], AvonComment on above:Order Comment: No: Do not add to previous drawPerformed By: #### 32531 #### [facility] [address] [place] [address], USAMAGNESIUM BLOODon 12-54-5638Edoouigky [Mass/Vol]2.1 mg/dL Normal1.9-2.7The [facility], AvonComment on above:Order Comment: No: Do not add to previous drawPerformed By: #### 73046 #### [facility] [address] [place] [address], USAMagnesium [Mass/Vol]2.0 mg/dLNormal1.9-2.7The [facility], AvonComment on above:Performed By: #### [id number] #### [facility] [address] [place] [address], USAPHOSPHORUS BLOODon 95-54-3694Drdgdywne [Mass/Vol]4.1 mg/dL Normal2.5-5.0The [facility], AvonComment on above:Order Comment: No: Do not add to previous drawPerformed By: #### [id number] #### [facility] [address] [place] [address], USAPhosphate [Mass/Vol]4.0 mg/dLNormal2.5-5.0The [facility], AvonComment on above:Performed By: #### 03136 #### [facility] [address] [place] [address], USAPOC GLUCOSE LABon 50-54-6272Xxouskz [Mass/Vol]180 mg/dLHigh 70-100The [facility], AvonComment on above:Performed By: #### 28465 ####[facility] [place] [address], USAGlucose [Mass/Vol]198 mg/uEWhmc31-444Twp [facility], AvonComment on above:Performed By: #### [id number], 02501 #### [facility] [address] [place] [address], USAGlucose [Mass/Vol]265 mg/oCFfdy05-678Ixl [facility], AvonComment on above:Performed By: #### 82286 #### [facility] [address] [facility] [place] [address], USAGlucose [Mass/Vol]305 mg/mKRrka32-829Fkd [facility], AvonComment on above:Performed By: #### 09063, 71837 #### [facility] [address] [address], USAGlucose [Mass/Vol]301 mg/uAUjrk28-328Fju [facility], AvonComment on above:Performed By: #### 60811 #### [facility] [address] [place] [address], USAPORTABLE CHEST 1 VIEWon 32-32-9092JNMOHOFF CHEST 1 VIEW [facility] [place] Department of Radiology [address] [place] [address] [id number] Patient Name: RASHARD LYMAN : 1960 Sex: M Age: Race: White Pt. Location: [address] [place] [address] Patient Status: I Ordered Date: 07/14/2020 1:40:00 [...] above Electronically signed: Patricia Damon. Transcribed by: [email or web address], User Resident: Electronically Signed by: PATRICIA DAMON @ 07/14/2020 03:24 [facility] CenterComment on above:Order Comment: Evaluate for PneumothoraxPORTABLE CHEST 1 V[facility]UnMer[facility] Department of Radiology [address] [place] [id number] Patient Name: RASHARD LYMAN : 1960 Sex: M Age: Race: White Pt. Location: [address] [place] [address] Patient Status: I Ordered Date: 07/13/2020 11:35:00 [...] reports Electronically signed: Valdemar Foster. Transcribed by: [email or web address], User Resident: SY MOFFETT Electronically Signed by: VALDEMAR FOSTER @ 07/14/2020 06:31 AM I personally read this/these film(s) with this [facility] RehabilitationComment on above:Order Comment: evaluate for Effusion PROTEIN ELECT Truong [id number] [Mass/Vol]6.0 g/dLNormal6.0-8.3The [facility], AvonComment on above:Performed By: #### [id number] #### [facility] [address] [place] [address], USAPROTEIN ELECTNoMcKitrick Hospital Comment on above:Result Comment: Decreased albumin and elevated alpha 1 and 2 suggests acute inflammation.Performed By: #### [id number] #### [facility] [address] [place] [address], USAPROTEIN ELECT URon 05-03-9143CFWEYCV ELECTUrine protein electrophoresis suggests a nonselective nephropathy.NormalThe [facility], AvonComment on above:Performed By: #### [id number] #### [facility] [address] [place] [address], USAPROTEIN TOTAL BLOODon 98-71-0478Jcrwbwc [Mass/Vol]6.7 g/dL Normal6.0-8.3The [facility], AvonComment on above:Order Comment: Left Peural EffusionPerformed By: #### [id number] #### [facility] [address] [place] [address], USAPROTHROMBIN TIMEon 06-40-1874KAS Coag (PPP) [Relative time] 1.12 {INR}Normal0.91-1.16The [facility], AvonComment on above:Order Comment: No: Do not add to previous drawResult Comment: [facility]R FOR WARFARIN THERAPY ------- CONDITION [...] OPTIMAL THERAPEUTIC RANGE. CHEST 1995;108:231S-246S.Performed By: #### [id number], [id number] #### [facility] [address] [facility] [place] [address], USAPT Coag (PPP) [Time]14.4 lOfaags10.3-14.8The [facility], AvonComment on above:Order Comment: No: Do not add to previous drawResult Comment: ALL RESULTS MUST BE INTERPRETED WITH RESPECT TO BLOOD DRAWING ARTIFACT OR DILUTION ERROR OF ANTICOAGULANT AT THE TIME OF SAMPLING.Performed By: #### [id number], 70828 #### [facility] [address] [facility] [facility] [place] [id number], USASEDIMENTATION RATEon [id number] RATE32 mm/hrHigh0-10The [facility], AvonComment on above:Performed By: #### 80788 #### [facility] [address] [place] [address], USASODIUM URINE RANDOMon 39-40-4714Nofmfz (U) [Moles/Vol]59 mmol/LNormalThe [facility], AvonComment on above:Order Comment: No: Do not add to previous drawResult Comment: There are no established reference values for random urine specimensPerformed By: #### [id number] #### [facility] [address] [place] [address], USAT PROT FLUIDon 02-46-0704Qgxcjjz [Mass/Vol]3.6 g/dLNormal The [facility], AvonComment on above:Result Comment: The reference range and other method performance specifications have not been established for this test in fluids. the test result should be integrated into the clinical context for interpretation.Performed By: #### [id number] #### [facility] [address] [place] [address], USAT PROT UR Loretta 07-14-2020U TOTAL ZTLKNKN051.0 mg/dLNormal The [facility], AvonComment on above:Order Comment: No: Do not add to previous drawResult Comment: There are no established reference values for random urine specimensPerformed By: #### 97731 #### [facility] [address] [place] [address], USAPerformed By: #### [id number] #### [facility] [address] [facility] [place] [address], USATROPONIN-Ion 63-89-0808Noamlbsz I.cardiac [Mass/Vol]0.09 ng/mLHigh0.00-0.04The [facility], AvonComment on above:Order Comment: No: Do not add to previous drawResult Comment: REFERENCE RANGES: 0.00 - 0.04 ng/ml NORMAL 0.05 - 0.50 ng/ml INDETERMINATE > 0.50 ng/ml CONSISTENT WITH AN M.I.Performed By: #### 72389 #### [facility] [address] [place] [address], USATroponin I.cardiac [Mass/Vol]0.07 ng/mLHigh0.00-0.04The [facility], AvonComment on above:Order Comment: No: Do not add to previous drawResult Comment: REFERENCE RANGES: 0.00 - 0.04 ng/ml NORMAL 0.05 - 0.50 ng/ml INDETERMINATE > 0.50 ng/ml CONSISTENT WITH AN M.I.Performed By: #### 90349 #### [facility] [address] [place] [address], RABPRV1gq 91-87-9488LSH 3RD GENERATION3.28 uIU/mLNormal 0.34-5.60The [facility], AvonComment on above:Order Comment: No: Do not add to previous drawPerformed By: #### 76107 #### [facility] [address] [facility] [place] [address], USAURIC ACID BLOODon 21-61-7696Iqnso [Mass/Vol]7.1 mg/dLNormal 4.4-7.6The [facility], AvonComment on above:Performed By: #### 74918 #### [facility] [address] [place] [address], USAURINALYSIS REFLEXon 63-56-0561Huattdeica (U)SL CLOUDY AbnormalCLEARThe [facility], AvonComment on above:Order Comment: Left Peural EffusionPerformed By: #### 09005 #### [facility] [address] [place] [address], USABilirubin Ql (U)NegativeNormalNEGATIVEThe [facility], AvonComment on above:Order Comment: Left Peural Effusion Performed By: #### 14578 #### [facility] [address] [place] [address], USAColor (U)YELLOWNormalYELLOWThe [facility], AvonComment on above:Order Comment: Left Peural EffusionPerformed By: #### [id number] #### [facility] [address] [place] [address], USAEPISFEWNormalFEW,OCC,NONE SEENThe [facility], AvonComment on above:Order Comment: Left Peural EffusionPerformed By: #### 12120 #### [facility] [address] [place] [address], USAGlucose Ql (U)>=500AbnormalNEGATIVEThe [facility], AvonComment on above:Order Comment: Left Peural EffusionPerformed By: #### 77331 #### [facility] [address] [place] [address], USAHemoglobin Ql (U)TRACEAbnormalNEGATIVEThe [facility], AvonComment on above:Order Comment: Left Peural Effusion Performed By: #### 32913 #### [facility] [address] [facility] [place] [address], USAKETONETRACEAbnormalNEGATIVEThe [facility], AvonComment on above:Order Comment: Left Peural EffusionPerformed By: #### 23258 #### [facility] [address] [place] [address], USALEUK ESTERNegativeNormalNEGATIVEThe [facility], AvonComment on above:Order Comment: Left Peural EffusionPerformed By: #### 57525 #### [facility] [address] [place] [address], USAMUCUS THREADSOCCAbnormalNONE SEENThe [facility], AvonComment on above:Order Comment: Left Peural EffusionPerformed By: #### 90020 #### [facility] [address] [place] [address], USANitrite Ql (U)NegativeNormalNEGATIVEThe [facility], AvonComment on above:Order Comment: Left Peural Effusion Performed By: #### 47249 #### [facility] [address] [place] [address], USApH (U)6.0 [pH]Normal5.0-8.0The [facility], AvonComment on above:Order Comment: Left Peural EffusionPerformed By: #### 52314 #### [facility] [address] [place] [address], USAProtein Ql (U)>=500AbnormalNEGATIVEThe [facility], AvonComment on above:Order Comment: Left Peural EffusionPerformed By: #### 53190 #### [facility] [address] [address], USARBC0-2AbnormalNONE SEENThe [facility], AvonComment on above:Order Comment: Left Peural EffusionPerformed By: #### 31986 #### [facility] [address] [facility] [place] [address], USASPEC GRAV1.881Wkcuzv8.015-1.020The [facility], AvonComment on above:Order Comment: Left Peural EffusionPerformed By: #### 04059 #### [facility] [address] [facility] [place] [address], USAWBC UA3-5AbnormalNONE SEENThe [facility], AvonComment on above:Order Comment: Left Peural EffusionPerformed By: #### 60057 #### [facility] [address] [facility] [place] [address], [facility] Vital Signs Date TimeVital SignValuePerforming NtejszkcaEswocipn11-01-8556 12:54-0400Body mass index (BMI) [Ratio]27.9 kg/f4Umamfs Mixify DO Work Phone: [facility] Hglsbc84-29-2216 12:54-0400Body wrusbewuzqx47.39 [degF]Colton Mixify DO Work Phone: [facility] Jcjbag94-67-3300 12:54-0400Body idlhvj101.96 kgDennis Furlong DO Work Phone: [facility]10-21-2025 12:54-0400Diastolic blood mm[Hg]Colton Kiranlong DO Work Phone: [facility] Qynuuw94-44-3216 12:54-0400Heart rate 76 /minDennis Furlong DO Work Phone: [facility] Rwcams93-85-6642 12:54-0400 Respiratory rate18 /minDennis Furlong DO Work Phone: [facility]10-21-2025 12:54-1272SrQ9% (BldA) [Mass fraction]97 %Colton Kiranlong DO Work Phone: [facility]10-21-2025 12:54-0400Systolic blood mm[Hg]Colton Kiranlong DO Work Phone: [facility] Ezfkck15-07-1281 22:49-0400Body mass index (BMI) [Ratio]29.27 kg/s5PphyqdColton Kiranlong DO Work Phone: [facility]10-14-2025 22:49-0400Body qaegabimjyg97.39 [degF]Colton Kiranlong DO Work Phone: [facility]10-14-2025 22:49-0400Body ymuhhq207.09 kgDendain Kiranlong DO Work Phone: [facility] Ackkaw65-75-8890 22:49-0400Diastolic blood mm[Hg]Colton Kiranlong DO Work Phone: [facility]10-14-2025 22:49-0400Heart rate 99 /Nannetteis Furlong DO Work Phone: [facility] Qluill66-55-9295 22:49-0400 Respiratory rate18 /minDennis Furlong DO Work Phone: [facility] Tvlptr08-17-5469 22:49-5088NoB2% (BldA) [Mass fraction]96 %Colton Kiranlong DO Work Phone: [phone] Sjnkda67-55-0463 22:49-0400Systolic blood ojwnvbmf085 mm[Hg]Colton Furlong DO Work Phone: [facility] Jgitix43-86-1602 12:12-0400Body mass index (BMI) [Ratio]27.85 kg/e1Zocvvs Qianalong DO Work Phone: [facility] Okywze04-49-7718 12:12-0400Body nvkhlavpttd03.9 [degF]Colton Kiranlong DO Work Phone: [facility] Lypkfk78-62-4360 12:12-0400Body prjovr423.78 kgDendain Kiranlong DO Work Phone: [phone] Brbjyb04-83-7855 12:12-0400Diastolic blood mylamqqo29 mm[Hg]Colton Kiranlong DO Work Phone: [facility] Ochnlu32-28-1069 12:12-0400Heart rate 92 /Lazaro Kiranlong DO Work Phone: [facility] Gjdalg88-86-7864 12:12-0400 Respiratory rate18 /Nannetteis Qianalong DO Work Phone: [phone] Hpbhhy05-02-9303 12:12-8662SxV7% (BldA) [Mass fraction]99 %Colton Kiranlong DO Work Phone: [facility] Lmeakz28-19-8974 12:12-0400Systolic blood cumrhakm38 mm[Hg]Colton Qianalong DO Work Phone: [facility] Aktybv50-24-7742 23:08-0400Body mass index (BMI) [Ratio]28.81 kg/y5Mqpsbn Furlong DO Work Phone: [phone] Omlavk39-37-6776 23:08-0400Body crmufslabhu92.81 [degF]Colton Kiranlong DO Work Phone: [facility]09-30-2025 23:08-0400Body idbdks345.37 kgDennis Qianalong DO Work Phone: [facility]09-30-2025 23:08-0400Diastolic blood djemrzcq42 mm[Hg]Colton Kiranlong DO Work Phone: [facility]09-30-2025 23:08-0400Heart rate 76 /Lazaro Kiranlong DO Work Phone: [facility]09-30-2025 23:08-0400 Respiratory rate18 /Lazaro Kiranlong DO Work Phone: [facility]09-30-2025 23:08-9816CqA6% (BldA) [Mass fraction]97 %Colton Kiranlong DO Work Phone: [facility]09-30-2025 23:08-0400Systolic blood ythcrnao533 mm[Hg]Colton Kiranlong DO Work Phone: [facility]09-23-2025 21:28-0400Body sajjlp425 cmColton Kiranlong DO Work Phone: [facility]09-23-2025 21:28-0400Body mass index (BMI) [Ratio]29.9 kg/i5Awxhaq Furlong DO Work Phone: [facility]09-23-2025 21:28-0400Body uvcgemvqval04.1 [degF]Colton Kiranlong DO Work Phone: [facility]09-23-2025 21:28-0400Body hnushl495.4 kgDendain Kiranlong DO Work Phone: [facility]09-23-2025 21:28-0400Diastolic blood lemrjavg27 mm[Hg]Colton Furlong DO Work Phone: [facility] Jkdvzh00-96-5414 21:28-0400Heart rate 77 /minDennis Furlong DO Work Phone: [facility]09-23-2025 21:28-0400 Respiratory rate18 /minDennis Furlong DO Work Phone: [facility]09-23-2025 21:28-0434QvP1% (BldA) [Mass fraction]99 %Colton Furlong DO Work Phone: [facility]09-23-2025 21:28-0400Systolic blood cvydnozv303 mm[Hg]Colton Furlong DO Work Phone: [facility]09-19-2025 13:22-0400Diastolic blood rhfkmfab70 mm[Hg]Chino Elliott DPM Work Phone: 1(472)190-[address] [place], [place] 0066209-19-2025 13:22-0400 Heart rate80 /minter [facility] DPM Work Phone: [phone]09-19-2025 13:22-0400 Respiratory rate20 /minPeter [facility] DPM Work Phone: 1([phone] [place], [place] 0066209-19-2025 13:22-0400 SaO2% (BldA) [Mass fraction]100 %Chino Elliott DPM Work Phone: 1(294)084-[address] [place], [place] 0066209-19-2025 13:22-0400 Systolic blood mm[Hg]Chino Ellitot DPM Work Phone: 1(931)611-[address] [place], [place] 0066209-19-2025 09:10-0400 Body vvcshlskygn63.8 [degF]Chino Elliott DPM Work Phone: 1(799)369-[address] [place], [place] 0066209-19-2025 05:33-0400 Body .9 kgPetracy [facility]har[facility] D[facility] Work Phone: 1(687)266-[address] [place], [place] 0066209-18-2025 13:33-0400 Body kbzylq917.04 cmPeter Highlander DPM Work Phone: [phone] [place], [place] 1701709-03-2025 14:32-0400 Body eoxelvhygrk59.3 [degF]Chino Elliott DPM Work Phone: 1(628)[address] [place], [place] 1701709-03-2025 14:32-0400 Diastolic blood mm[Hg]Chino Elliott DPM Work Phone: [phone])[address] [place], [place] 1701709-03-2025 14:32-0400 Heart rate80 /minPeter Highlander DPM Work Phone: 1(502)[address] [place], [place] 1701709-03-2025 14:32-0400 Respiratory rate18 /minPeter Highlander DPM Work Phone: 1(318)[address] [place], [place] 1701709-03-2025 14:32-0400 SaO2% (BldA) [Mass fraction]100 %Chino Elliott DPM Work Phone: 1(135)[address] [place], [place] 1701709-03-2025 14:32-0400 Systolic blood udwslqnx886 mm[Hg]Chino Elliott DPM Work Phone: 1(437)[address] [place], [place] 1701709-03-2025 06:00-0400 Body xpjiiq981.2 kgPeter Highlander DPM Work Phone: 1(535)[address] [place], [place] 1701708-28-2025 12:55-0400 Body ejxclt238.04 cmPeter Highlander DPM Work Phone: 1(923)[address] [place], [place] 1701708-28-2025 10:07-0400 Inhaled oxygen flow rate7 L/minPeter Highlander DPM Work Phone: 1(369)[address] [place], [place] 1701710-31-2024 11:25-0400 Body idoivo517 cmNima Lee MD Work Phone: [facility]10-31-2024 11:25-0400Body mass index (BMI) [Ratio]28 kg/z9WqlezhdNima Lee MD Work Phone: [facility]10-31-2024 11:25-0400Body xwbugtfcxmn21.11 [degF]Nima Lee MD Work Phone: 1(044)[facility] Tipxlm01-40-5772 11:25-0400Body ytvzol459.33 kgNima Lee MD Work Phone: 1(395)[facility] Mpufrl79-36-3182 11:25-040Diastolic blood wnrghxlu46 mm[Hg]Nima Lee MD Work Phone: 1(256)[facility] Fmoezq01-18-3302 11:25040Heart rate 78 /minNima Lee MD Work Phone: 1(384)[facility] Ovmlsq16-39-0083 11:7393AqK8% (BldA) [Mass fraction]98 %Nima Lee MD Work Phone: 1(453)[facility] Evinvc23-96-1804 11:25-040Systolic blood ytautjgp468 mm[Hg]Nima Lee MD Work Phone: 1(718)[facility] Ycppje05-02-5855 15:40-0500Body ifzbfj846.04 cmEtim Pollack Other [facility] [employer] Other 11-23-2021 15:40-0500Body mass index (BMI) [Ratio] 39.02 kg/s2JdbmiKike Pollack Other [facility] [employer] Other 11-23-2021 15:40-0500Body faddizrsutv87.8 [degF]Kike Pollack Other [facility] [employer] Other 11-23-2021 15:40-0500Body .42 kgKike Pollack Other [facility] [employer] Other 11-23-2021 15:40-0500Diastolic blood yzefojvc14 mm[Hg] Kike Pollack Other [facility] [employer] Other 11-23-2021 15:40-0500Respiratory rate18 /Sherrell Pollack Other [employer] Other 11-23-2021 15:40-4642OdB8% (BldA) [Mass fraction]96 % Kike Pollack Other [employer] Other 11-23-2021 15:40-0500Systolic blood fdiadexl597 mm[Hg] Kike Pollack Other [employer] Other 04-29-2021 12:24-0400Heart rate82 /minCharles Valone Work Phone: [phone]04-29-2021 12:24-0400 Respiratory rate20 /minCharles Valone Work Phone: 6(975)923-[address] [place], [place] 0468604-29-2021 11:17-0400 Body adzsoohfvuh72.7 [degF]Jose Valone Work Phone: 9(321)547-[address] [place], [place] 0468604-29-2021 11:17-0400 Diastolic blood koozsjik33 mm[Hg]Jose Valone Work Phone: 2(425)627-[address] [place], [place] 0468604-29-2021 11:17-0400 SaO2% (BldA) [Mass fraction]96 %Jose Valone Work Phone: 5(686)769-03[facility]04-29-2021 11:17-0400 Systolic blood hccubxnp099 mm[Hg]Jose Valone Work Phone: [phone]04-29-2021 06:00-0400 Body .5 kgCharles Valone Work Phone: [facility]04-23-2021 14:17-0400 Body hrhigi892.04 cmCharles Valone Work Phone: [phone]04-22-2021 21:22-0400 Body .04 cmCharmeenu Juarez Work Phone: 1(916)067-[address] [place], [place] 0468604-22-2021 21:22-0400 Body mass index (BMI) [Ratio]43.8 kg/r7Jumtnud Valone Work Phone: 1(989)027-[address] [place] [address]-22-2021 21:22-0400 Body lybswutxbji86.6 [degF]Jose Juarez Work Phone: 1(554)718-[address] [place] [address]-22-2021 21:22-0400 Body vbjaxp439.3 kgCharmeenu Valnikolay Work Phone: 1(194)573-[address] [place] [address]-22-2021 21:22-0400 Diastolic blood pbkaeiox24 mm[Hg]Jose Juarez Work Phone: 1(943)820-[address] [place] [address]-22-2021 21:22-0400 Heart viba868 /minJenniferrmeenu Valone Work Phone: 1(405)835-[address] [place] [address]-22-2021 21:22-0400 Respiratory rate18 /minJenniferrmeenu Valnikolay Work Phone: 1(997)367-[address] [place] [address]-22-2021 21:22-0400 SaO2% (BldA) [Mass fraction]94 %Jose Juarez Work Phone: 1(978)304-[address] [place] [address]-22-2021 21:22-0400 Systolic blood vmdoqkao363 mm[Hg]Jose Juarez Work Phone: 1([phone] [place] [address] Encounters Encounter DateEncounter TypeCare ProviderFacilityStart: 02-17-2025 End: 25-62-1172zgwsmzktjsYdflxz G Furlong DO Work Phone: [facility] Family MedicineComment on above:Type 2 diabetes mellitus with diabetic neuropathy, with long-term current use of insulin ([facility]) (Primary Dx); End stage renal disease ([facility]); Hemodialysis-associated hypotension; Acquired absence of left foot (CMS-HCC); Acquired absence of right foot (CMS-HCC)Start: 02-16-2025 End: 40-33-5096fopbnyxwruIcbxmj G Furlong DO Work Phone: [facility] - Family MedicineComment on above:Type 2 diabetes mellitus with diabetic neuropathy, with long-term current use of insulin ([facility]) (Primary Dx); End stage renal disease ([facility]); Dependence on renal dialysis; Hemodialysis-associated hypotensionStart: 02-02-2025 End: 08-78-8079ujekrimzsyPkjblq G Furlong DO Work Phone: [facility] - Family MedicineComment on above:Type 2 diabetes mellitus with diabetic neuropathy, with long-term current use of insulin ([facility]) (Primary Dx); Unspecified trochanteric fracture of right femur, subsequent encounter for closed fracture with routine healing; Nausea; Acquired absence of left foot (CMS-HCC); Acquired absence of right foot ([facility]); End stage renal disease ([facility])Start: 02-01-2025 End: 78-15-7796xzphzgwthsLejdyalRosibel Juarez JR Work Phone: [facility] Work Phone: Start: 02-01-2025 End: 28-85-4058Bzdpszi encounter procedureWilfrido Montez DO-[facility] [place] Work Phone: Start: 01-26-2025 End: 66-18-8663trwljturdbWifszx G Furlong DO Work Phone: [facility] Medicine - Family MedicineComment on above:Unspecified trochanteric fracture of right femur, subsequent encounter for closed fracture with routine healing (Primary Dx); Type 2 diabetes mellitus with diabetic neuropathy, with long-term current use of insulin ([facility]); End stage renal disease ([facility]); Acquired absence of right foot (CMS-HCC); Acquired absence of left foot (CMS-HCC)Start: 01-19-2025 End: 84-65-8321yahkadpkumYvaext G Furlong DO Work Phone: [facility] - Family MedicineComment on above:Unspecified trochanteric fracture of right femur, subsequent encounter for closed fracture with routine healing (Primary Dx); Chronic obstructive pulmonary disease, unspecified COPD type ([facility]); End stage renal disease ([facility]); Dependence on renal dialysis; Peripheral vascular disease, unspecified; Acquired absence of left foot ([facility]); Acquired absence of right foot ([facility]); Type 2 diabetes mellitus with diabetic neuropathy, with long-term current use of insulin ([facility]); Hyperlipidemia, unspecified hyperlipidemia type; Gastroesophageal reflux disease, unspecified whether esophagitis present; Psoriasis, unspecifiedStart: 69-50-3487Pad-patient / Non-visitClayton Cardenas MD- [facility] Work Phone: Start: 53-46-5559Ohc-patient / Non-visitAleta Jensen APRN-[facility] Work Phone: Start: 95-56-4924Czc-patient / Non-visitClayton Cardenas MD-[facility] [facility] Work Phone: Start: 12-30-2024 End: 68-41-6500Yfpnqnwdco and management of inpatientCharles L Valone [facility]: 38-28-5747Pwj-patient / Non-visitRaimundo Mcclure MD-[facility] Neph Sand Work Phone: Start: 82-51-8232Gesjbzy encounter statusChino Elliott DPM Work Phone: [facility]art: 26-07-2716Hlo- patient / Non-visitAri Batista MD-[facility] Vascular Surg Work Phone: Start: 70-03-5002Bafgjrj encounter statusAri Batista MDBarney Children's Medical Centertart: 33-42-0746Geboxwtfz for preprocedural cardiovascular examinationPhillip Aiken [facility] Physician GroupStart: 12-23-2024 End: 37-13-0493Dptvkkzzse and management of inpatientAndrei Celia Facility:[facility]: 10-26-2024 End: 29-84-5820vljatztfdqVowiySumma [facility] Work Phone: Start: 10-26-2024 End: 42-05-6052Olrxnnhj ReferredGeisinger [facility] DPM [place]-LAB [facility] [place] [facility]ospStart: 08-28-2024 End: 08-23-8664ufouuymkcqLtdfjSumma Health [facility] Work Phone: Start: 08-28-2024 End: 74-15-7119Jilomxxz ReferredGeisinger [facility] DPM Work Phone: [facility] Ctr-LAB Path Spec [place] HospStart: 02-27-2024 End: 51-33-2601Tgyljo outpatient visit 25 minutesMohamed Malik Lee MD Work Phone: [facility] Vascular SurgeryComment on above:Critical limb ischemia of left lower extremity with gangrene ([facility]) (Primary Dx)Start: 02-17-2024 End: 38-07-5476lxkwwkzkrmGBMPJAK L VALONE JRProMedica [facility] HospitalStart: 01-20-2024 End: 05-31-7283hiaambytowBGJFHJK L VALONE JRProMedica [facility] HospitalStart: 12-16-2023 End: 45-87-4487ylhgywpogxWBCNMJT L VALONE JRProMedica [facility] HospitalStart: 11-19-2023 End: 29-16-4755vxwzybupcgTBKDJXY L VALONE JRProMedica Nichols HospitalStart: 11-19-2023 End: 30-85-8995Ildvxtwjb Result EncounterAjay Archer MD Work Phone: noms External Department UnsolicitedStart: 11-19-2023 End: 98-17-1053Ligmoobez Result EncounterAjay Archer MD Work Phone: noms External Department UnsolicitedStart: 10-23-2023 End: 50-70-2159wcfmcjwsinNVTOGVQ L VALONE JRProMediS[facility] Hospital HospitalStart: 09-03-2023 End: 48-85-8660wkmbtqlwmeGROZTYS Anmol JUAREZ JRProMedica [facility] HospitalStart: 07-31-2023 End: 25-54-6716bfkzsxkwzjSPYECIB Anmol JUAREZ JRProMediSoutheast [facility] Hospital HospitalStart: 07-02-2023 End: 78-65-0769vdurmylfwjZJILOMK Anmol JUAREZ JRProCleveland Clinic Children'[facility] For Rehabilitationca [facility] HospitalStart: 06-04-2023 End: 17-19-7673cybkgzpwzfJDPRIHT Anmol JUAREZ JRProMedica [facility] HospitalStart: 05-31-2023 End: 38-52-4751bdbpzgzuqrJFLHA RALOFSKYMercy Flagstaff HospitalStart: 05-06-2023 End: 54-72-2886nhcnniugyxINKBPPP Anmol JUAREZ [facility] HospitalStart: 04-19-2023 End: 58-82-8461xywjeflnloYPWEY D [facility] HospitalStart: 02-27-2023 End: 82-93-4214yeseafqdbhJQVHR D [facility] HospitalStart: 09-11-2022 End: 04-35-6384tzombmzbgwRGQRE D [facility]Facility:U3Imqnj: 08-28-2022 End: 29-49-1223ozpzheekaoWZFAS D [facility]ENTERFacility:K9Wmjlb: 08-24-2022 End: 35-21-9860gebjzkikqdOK CHARLES VALONEFacility:M2Wsqtr: 08-20-2022 End: 55-23-1264ehwfmctpkfQYOctavio JUAREZFacility:G2Zophq: 25-64-9168Mbquvxqjj for preprocedural cardiovascular examinationPETER D [facility] HospitalStart: 00-81-6646Kaschbyzu for preprocedural laboratory examinationPETER D [facility] HospitalStart: 39-45-8577Ajfgocvkh for preprocedural respiratory examinationPETER D [facility] HospitalStart: 08-15-2022 End: 72-70-9166rtkvvgbdopTO CHARLES VALONEFacility:R0Lhgdn: 08-15-2022 End: 15-38-6495Wkrtgnste for preprocedural laboratory examinationDR JOSE VALONEFacility:W6Fccnh: 07-31-2022 End: 63-97-0827acdvgyhmzdUR JOSE VALONEFacility:E0Rdzxr: 07-13-2022 End: 08-89-9333ihwdstvbzdVX JOSE VALONEFacility:J8Sisyq: 06-21-2022 End: 66-31-9141ejqbjhcxdoKG JOSE VALONEFacility:M3Wwsni: 53-99-5348ldwkzxycvu DR CARLOS EDUARDO SU .Facility:J3Urrlz: 06-06-2022 End: 42-61-6415mdajacjkzsTL JOSE VALONEFacility:S1Uoabl: 05-28-2022 End: 22-07-0799wrdyngwbytYJ JOSE VALONEFacility:B0Qrmnc: 05-07-2022 End: 96-31-1003wuzurtxkznKY JOSE VALONEFacility:W5Kpnqx: 04-09-2022 End: 71-14-9911rukfpvpbjbOR JOSE VALONEFacility:H4Lsksu: 03-26-2022 End: 65-35-3263ozvhybuyerRP JOSE VALONEFacility:A1Qdklv: 03-13-2022 End: 20-61-1753imuluohlukEB JOSE VALONEFacility:E6Veapv: 03-02-2022 End: 20-00-2268pccfideiizWT JOSE VALONEFacility:G9Ydwgs: 03-01-2022 End: 02-76-2669kdmbfnybriMY CARLOS EDUARDO S NIMESH .Facility:J9Llfbk: 02-23-2022 End: 71-34-7960xyefalnspiRL JOSE VALONEFacility:W9Ftxmx: 02-16-2022 End: 10-60-0427tgshbjetftIZ JOSE VALONEFacility:Q9Asayp: 02-09-2022 End: 15-78-1156tgmwkznymrNK JOSE VALONEFacility:P9Tvydh: 02-02-2022 End: 67-45-6866ttszgqnqjxRFIMY D HIGHLANDERFacility:O9Dbicn: 01-26-2022 End: 63-11-7422dfzguiztchCEVHZ D HIGHLANDERFacility:P5Ildeu: 01-18-2022 End: 95-83-2268vbvmclyccaLPCVU D HIGHLANDERFacility:V9Zqppw: 01-15-2022 End: 39-52-8061sandsuchfcDLTPI D HIGHLANDERFacility:D0Tlful: 01-12-2022 End: 42-34-9318ttsiffmakmPVSBZ D HIGHLANDERFacility:K1Awvjc: 01-10-2022 End: 40-25-5018gdudhawzlgRXLBD D HIGHLANDERFacility:C3Jijde: 01-02-2022 End: 86-58-0282wynbvtbxacYTYZK D HIGHLANDERFacility:P5Yavnd: 12-25-2021 End: 53-73-6089qgzijslaozUYPMX D HIGHLANDERFacility:G0Bdggl: 12-21-2021 End: 43-31-8313taqjsuodofRQQFYN H FAWWADFacility:U3Dvcof: 12-18-2021 End: 53-30-8964zrgqdowfigNJFVB D HIGHLANDERFacility:U3Xptai: 12-15-2021 End: 17-56-2281wljnmhotirCWTMR D HIGHLANDERFacility:O8Lpqlc: 12-11-2021 End: 08-46-8947mapxpvnpvdCOFCC D HIGHLANDERFacility:O7Ljcqf: 11-30-2021 End: 60-14-8932dvyziyvaibPD CARLOS EDUARDO S SU .Facility:A3Lfykn: 11-22-2021 End: 49-71-7828vlqgnqecseUY CARLOS EDUARDO S SU .Facility:H7Wcoqs: 11-21-2021 End: 77-36-2196elssafrptpRWAFB D HIGHLANDERFacility:J7Croqc: 11-14-2021 ambulatoryDR CARLOS EDUARDO S SU .Facility:C4Wzffz: 11-13-2021 End: 77-51-6354druxgxtjjwFOSDK D HIGHLANDERFacility:H7Nfbqq: 11-07-2021 End: 87-04-4309ortmyzslifHXIZR D HIGHLANDERFacility:K6Sczdn: 10-31-2021 End: 71-19-4804necxctowerQDJDC D HIGHLANDERFacility:A1Lvvtf: 10-24-2021 End: 78-51-9720mgnqkmiwtqNSDDZ D HIGHLANDERFacility:H5Kigii: 10-17-2021 End: 86-19-4280giuxjveosqRAJQR D HIGHLANDERFacility:Z2Qxqxr: 10-09-2021 End: 88-59-8545uvchcelvlnGUVZS D HIGHLANDERFacility:W9Sgszx: 03-21-2021 End: 68-71-8171hzbmkjgpnvQtgrw Elashi Other [facility] [employer] Other Start: 52-83-5664Ofhvml outpatient visit 25 minutes Essmani PollackFPG NephrologyStart: 10-20-2020 End: 23-83-5402azqjsazuznCGWECGC PROVIDERFacility:METROHealthStart: 09-28-2020 End: 57-53-0778Gzlrggd encounter procedureCharles Valone Work Phone: [phone]-Kguofaikqow TherapyStart: 09-06-2020 End: 68-49-1679Okslvqa encounter procedureCharles Valone Work Phone: [phone]-EikxhexosghwtfapozZrppr: 08-18-2020 End: 49-63-1041Hxfdsihify and management of inpatientCharles Valone Work Phone: [phone] [place] ProgressiveStart: 07-13-2020 End: 06-49-7769Hknddbkcsj and management of inpatientSARMED MANSURFacility:[facility] Procedures DateProcedureProcedure DetailPerforming ClinicianStart: 80-88-4701Rzackiqr screenPeter HighlanderComment on above:Result Comment: PERFORMED BY: [facility] [address] [place] [address] PATHOLOGIST TRAVELING SECRETARY CARLOS BIRMINGHAM M.D.Start: 57-25-3393PY VENOUS DOPPLER LE [facility] Charis SIGALA Work Phone: Start: 52-14-7110Dcszuyztaxul [Mass/volume] in Urine by Test stripNima Lee MD Work Phone: [phone]: 09-39-6706VR thoracic spine wo conCharles Valnikoaly Work Phone: Start: 20-82-6051HU abdomen pelvis wo conCdevendra CanalesIntelicalls Inc. Work Phone: Start: 38-53-2199TC chest wo conCdevendra CanalesIntelicalls Inc. Work Phone: Start: 46-42-6927Nrfqljqffaqjssy of bilateral kidneys Jose Can[employer]Int[employer]. Work Phone: Start: 08-19-2020 End: 21-24-4817Jbjvyco microbial cultureCharmeenu CanalesIntelicalls Inc. Work Phone: Start: 14-38-0469Ahzfbxqomhnqe of transfusion reaction Jose [employer] Work Phone: Start: 61-79-3870Vbifk chest X-rayCharmeenu CanalesIntelicalls Inc. Work Phone: Start: 77-65-5121Nzmgk culture for bacteria, including anaerobic screenCharmeenu CanalesIntelicalls Inc. Work Phone: Start: 22-48-9031Pkzvccwppaa Panel (PCR)Jose CanalesIntelicalls Inc. Work Phone: Start: 25-18-3387SQYWCHQG OF L PLEURAL CAV WITH DRAIN DEV, PERC ENDO APPROACHMOHAMED OMBALLIStart: 47-60-2653SVIAIBOZ OF LEFT PLEURA, PERC ENDO APPROACH, DIAGNMOHAMED OMBALLIStart: 59-38-0996MZDKHQCPD OF OTH THERAP SUBST INTO RESP TRACT, VIA OPENINGMOHAMED OMBALLIStart: 34-22-9977IDQYEYD LEFT PLEURA, PERCUTANEOUS ENDOSCOPIC APPROACHMOHAMED OMBALLIStart: 21-95-8039ATBSQBKV OF LEFT PLEURAL CAVITY, PERC APPROACH, DIAGNMOHAMED OMBALLIStart: 07-15-2020 DRAINAGE OF LEFT PLEURAL CAVITY, PERCUTANEOUS APPROACHMOHAMED OMBALLIStart: 61-81-9190WLOWEQJS OF LEFT PLEURAL CAVITY, PERCUTANEOUS APPROACHMOHAMED OMBALLI Start: 89-73-5110YCLUYMZUNKWTBFL OF RIGHT AND LEFT HEART, MARY ANN [place] Plan of Treatment DateCare ActivityDetailAuthorStart: 82-10-9322RNcH,Tdap and Td Vaccines (2 - Td or Tdap)DTaP,Tdap and Td Vaccines (2 - Td or Tdap)[facility] SystemStart: 86-99-0344Yrmcx BMI ScreeningAdult BMI ScreeningLutheran Hospital SystemStart: 02-28-9577Qeocr BMI ScreeningAdult BMI ScreeningProMagruder Hospital SystemStart: 94-55-9609Vvrax BMI ScreeningAdult BMI ScreeningProMagruder Hospital SystemStart: 17-73-9116Vpjso BMI ScreeningAdult BMI ScreeningProMagruder Hospital SystemStart: 38-55-6324Zlzkfyg ScreeningTobacco ScreeningProMagruder Hospital SystemStart: 72-23-5080Nnqussffc aortic aneurysm screeningAbdominal Aortic Aneurysm (AAA) ScreenProMagruder Hospital SystemStart: 81-64-5985Kdcv Risk ScreeningFall Risk ScreeningLutheran Hospital SystemStart: 01-15-2025 End: 67-06-6917YlaywoyviTrinity Health [facility] CenterStart: 67-56-2835KivuywgnbTrinity Health [facility] CenterStart: 36-79-8150Zwpjwqbo to nephrologistTrinity Health [facility] CenterStart: 30-68-9941Lxfkdwbr admissionTrinity Health [facility] CenterStart: 87-49-9606Llzvldsi to clinical allergistTr[facility] Health [facility] CenterStart: 90-29-1611LjlxlvflpTrinity Health [facility] CenterStart: 97-40-7151DBGBM-19 Vaccine ( season)COVID-19 Vaccine ( season)[facility] SystemStart: 26-67-2416Ciptcrbxi vaccinationInfluenza VaccineLutheran Hospital SystemStart: 26-31-0450Fblbjfqt to rehabilitation physicianTr[facility] Health [facility] CenterStart: 91-43-9345Ubkndshd to vascular surgeonTr[facility] Health [facility] CenterStart: 18-96-3136Fkngojon to nephrologistTr[facility] CenterStart: 81-81-0900Colyzsaavpjg [facility] CenterStart: 35-31-7738Naafqlgu admissionTr[facility] Health [facility] CenterStart: 04-23-9383RgyaqqlcwTrinity Health [facility] CenterStart: 97-08-1938JzhjsffruTrinity Health [facility] CenterStart: 69-01-0336Xbyit screening for proteinUrine MicroalbuminOhioHealth Cordium SystemStart: 02-27-2024 End: 84-94-2048RV.doppler Extremity arteries - bilateral for physiologic artery studyVas art doppler lwr bilat mult lev/PVR Vascular Ultrasound Routine Critical limb ischemia of left lower extremity with gangrene (CMS-HCC) Expected: 02/27/2024, Expires: 02/26/2025[facility] Work Phone: Comment on above:Expected: 02/27/2024, Expires: 02/26/2025Start: 61-27-3866TLDZE-19 Vaccine ( season)COVID-19 Vaccine ( season)[facility] SystemStart: 73-86-5208Gpoznkxjr vaccinationInfluenza VaccineLutheran Hospital SystemStart: 58-66-0241Cxyurjed identified in Blood by CultureBlood CultureTrinity Health [facility] CtrStart: 27-67-7596ZXX ( or age 60+ yrs) (1 - Risk 60-74 years 1-dose series)RSV ( or age 60+ yrs) (1 - Risk 60-74 years 1-dose series)[facility] SystemStart: 09-24-9092Xiogjdbheqdgog of varicella zoster vaccineZoster (Shingles) Vaccine (1 of 2)[facility] SystemStart: 28-35-8623Keyei BMI Follow Up PlanAdult BMI Follow Up PlanLutheran Hospital SystemStart: 02-04-1978 Adult BMI ScreeningAdult BMI ScreeningLutheran Hospital SystemStart: 02-04-1978 Diabetic foot examinationDiabetic Foot ExamLutheran Hospital SystemStart: 94-69-1222Ldfrdkrygj ScreeningDepression ScreeningLutheran Hospital SystemStart: 16-34-9200Gfzsnum ScreeningTobacco ScreeningLutheran Hospital SystemStart: 94-24-8189Ocnxdest screeningDiabetic Ophthalmology ExamLutheran Hospital System Start: 22-27-1320Zyhurw Use: CardiovascularStatin Use: CardiovascularOhioHealth Health SystemStart: 89-35-5744Mmfacr Use: DiabeticStatin Use: DiabeticOhioHealth Health SystemAnion gap measurementMercy HealthErythrocyte distribution width [Ratio] by Automated countTrinity Health [facility] Center Erythrocytes [#/volume] in [facility] CenterGlomerular filtration rate [Volume Rate/Area] in Serum, Plasma or Blood by Creatinine [facility] HealthHematocrit [Volume Fraction] of [facility] Medical CenterHemoglobin [Mass/volume] in [facility] CenterLeukocytes [#/volume] corrected for nucleated erythrocytes in Blood by Automated [facility] HospitalMCH [Entitic mass] by Automated [facility] HospitalMCHC [Mass/volume] by Automated [facility] HospitalMCV [Entitic volume] by Automated count [facility] HealthPatient referralMercy Health St[facility] Platelet mean volume [Entitic volume] in Blood by Automated [facility] HospitalPlatelets [#/volume] in [facility] CenterXR Hip - right 2 [facility] HospitalXR Wrist - right GE 3 [facility] Immunizations Immunization DateImmunizationNotesCare VrvdlbrsUbewxony93-83-3130ugnugmdsz virus vaccine, unspecified formulationNima Lee MD Work Phone: [facility]10-15-2017tetanus toxoid, reduced diphtheria toxoid, and acellular pertussis vaccine, adsorbedMoyung Lee MD Work Phone: [facility] HospitalJaalzs70-15-6126ldemmpdce, seasonal, injectableEssam Jaki Other [facility]01-29-2016 pneumococcal polysaccharide vaccine, 23 valentEssam Jaki Other [facility] Payers DatePayer CategoryPayerPolicy [id number] Cross Blue ShieldBCBS Member Subscriber Plan / Payer (Effective 2017- Present) Name: Rashard Lyman Relation to Subscriber: Spouse Name: TORRES LYMAN Date of : 1964 Address: [address] [place] [address] Payer ID: Not on file Type: Not on file Address: [address] [place] [id number] [facility] Care - OtherANTHEM 1.2.840.549918.1.13.424.2.7.9.945201.505.[id number] 2..1.016045.3.579.2.08980-52-7705Askvhsi712715119 2..1.185184.3.579.2.92413-64-9039Bmfxvxh0900671 2..1.087665.3.579.2.72500-85-0462Nybggyx9201015 2..1.169794.3.579.2.79497-13-2563Ndkybcu4044853 2..1.272934.3.579.2.80388-56-2772Fwdjzov0784424 2..1.054378.3.579.2.06021-37-3714Yttqosu3873084 2.16.840.1.950462.3.579.2.15373-16-1583Fhyqswb1384402 2.16.840.1.971305.3.579.2.35370-93-0177Hvbyrts8439825 2.16.840.1.619319.3.579.2.45604-67-6668Kmgjbwq4849223 2.16.840.1.038911.3.579.2.89447-48-2468Oozgglv4581342 2.16.840.1.118820.3.579.2.64802-09-0736Sumddim0183875 2.16.840.1.528085.3.579.2.88650-52-5627Yjnngzx8880051 2.16.840.1.860217.3.579.2.34670-13-7492Luvfdqu7625341 2.16.840.1.987305.3.579.2.56274-11-0892Fjuswqi7191562 2.16.840.1.424995.3.579.2.51645-47-4629Qwdphcv6715078 2.16.840.1.237280.3.579.2.87581-38-8524Hoshrbn0721986 2.16.840.1.874040.3.579.2.74050-59-7505Bigkvbr8792930 2.16.840.1.901603.3.579.2.82161-15-9848Wtyzise7823906 2.16.840.1.920457.3.579.2.77834-39-3869Ehextmp2995710 2.16.840.1.736691.3.579.2.84187-83-4942Xaachfx0948937 2.16.840.1.086562.3.579.2.34013-29-7251Mbcxppx3001690 2.16.840.1.884805.3.579.2.82344-38-2178Yjfcwmm6608993 2.16.840.1.575930.3.579.2.16144-04-6521Rehdsde7707396 2.16.840.1.049071.3.579.2.72773-20-5224Btdpmom4755911 2.16.840.1.968166.3.579.2.69953-88-6045Bfudedm3838628 2.16.840.1.787324.3.579.2.50171-53-4433Qhjjjbp1972405 2.16.840.1.829927.3.579.2.37630-80-0031Shsnohi7131344 2.16.840.1.465413.3.579.2.80633-61-7842Hawjpse8048924 2.16.840.1.631212.3.579.2.96530-09-2027Uyweixz5485957 2.16.840.1.543964.3.579.2.20339-02-6774Vxhaykg1421388 2.16.840.1.211568.3.579.2.94399-99-1131Hkthvwf3222881 2.16.840.1.665328.3.579.2.93110-83-8939Sqcocqr3914017 2.16.840.1.541160.3.579.2.52274-92-1473Rqcsrxq6066727 2.16.840.1.626316.3.579.2.55700-58-4222Pjbmnza1049881 2.16.840.1.216386.3.579.2.98419-08-5821Wcqbyyw7234849 2.16.840.1.786822.3.579.2.74890-91-4976Jmmvuvs4768280 2.16.840.1.112187.3.579.2.16174-48-6118Rqkrugl9210518 2.16.840.1.396171.3.579.2.75663-09-0060Ppvtcef0408674 2.16.840.1.380070.3.579.2.73234-02-2375Ozmiufs6226241 2.16.840.1.530317.3.579.2.79547-38-0110Akklrkj4913475 2.16.840.1.450631.3.579.2.19108-00-4055Rnrvnsv3589669 2.16.840.1.303999.3.579.2.28806-49-1373Sraismr0642145 2.16.840.1.213947.3.579.2.16732-04-3678Zpgkpbz7887701 2.16.840.1.113601.3.579.2.47284-12-8374Pjlnyin1893803 2.16.840.1.019371.3.579.2.96300-01-5152Smdsybs4112605 2.16.840.1.950087.3.579.2.85811-25-5675Qvvgqbd02804667 2.16.840.1.575048.3.579.2.979568-48-5866Lshgdlr69911926 2.16.840.1.932065.3.579.2.300951-38-1400Rfddzcu39002394 2.16.840.1.979709.3.579.2.523472-25-0675Haqwoqn52408480 2.16.840.1.681079.3.579.2.046815-65-6701Eooesat33741758 2..840.1.275906.3.579.2.601754-08-5089Txusstu64971422 2..0.1.685722.3.579.2.870638-10-3604Ncwrvbg65901432 2..840.1.763362.3.579.2.461256-13-6368Bwwdtth12310904 2..0.1.449143.3.579.2.957860-25-1168Ynecqgr39755528 2..0.1.856747.3.579.2.197535-21-9807Ethhshq1173715 2..840.1.583301.3.579.2.893866-26-0100Tqkekzy8973063 2..1.009863.3.579.2.001997-56-0375CgyulhoKSE855C94030 [id number] [id number]05 2..1.577865.3.579.2.199Vmfrush26171809 2..1.687713.3.579.2.531 Social History DateTypeDetailFacilityTobacco smoking status NHISUnknown if ever smokedTrinity Health [facility] CtrStart: 15-53-6022Maj Assigned [facility] CenterStart: 18-20-7265Xpiigjy smoking status NHISUnknown if ever smokedNOMS HealthcareStart: 93-40-0436Hjmleie smoking status NHISNever smoked tobacco (finding)[facility] Centertart: 06-09-2020 End: 75-90-4134Keu Assigned At BirthKelly [employer] Other Start: 02-10-2017 End: 08-87-3834Xndzcxt smoking status NHISEx-smokerWVUMedicine [facility] Hospital End: 32-43-7019Ghrbzms of tobacco useCurrent smokerWVUMedicine Barnesville Hospital End: 76-57-4661Rdumczl of tobacco useCigarette SmokerLutheran Hospital System Start: 16-49-7845Fjtaqxw use and exposureSmokeless tobacco non-userLutheran Hospital SystemStart: 23-54-1055Okjspwjtu beverage intakeCurrent non-drinker of alcohol (finding)[place] [facility] Mountaintart: 06-09-2020 End: 93-05-3443Lwsrkfm of Social functionLutheran Hospital SystemStart: 63-79-1402WpyfodhzyQpojeleEafTlczok Health SystemStart: 92-85-6627Kvk assigned at birthNot on fileLutheran Hospital SystemStart: 12-02-2014 End: 60-67-9143MkhNpac (finding)[place] [facility] Mountaintart: 80-25-2601HMCE Follow upSDOH Follow upMercy Health St. [facility] Work Phone: Medical Equipment Procedure CodeEquipment CodeEquipment Original TextEquipment IdentifierDates ORIF, hipOrthopaedic fixation plate, non-bioabsorbable, sterile ()[id number] FDAStart: 27-29-9048ZXYL, hipOrthopaedic bone screw, non- bioabsorbable, non-sterile()[id number] FDAStart: 16-60-4201FTNJ, hip Orthopaedic bone screw, non-bioabsorbable, non-sterile()[id number] FDA Start: 62-47-4844KSVJ, hipOrthopaedic bone screw, non-bioabsorbable, non-sterile ()[id number] FDAStart: 38-05-6019WSOX, hipOrthopaedic bone screw, non- bioabsorbable, non-sterile()[id number] FDAStart: 17-37-1537OACX, hipFemur nail, sterile()[id number] FDAStart: 16-75-8395PZQA, hipSpiral blade()[id number] FDAStart: 12-24-2024 Goals DatePatient GoalDesired Activity/State Functional Status BohsTgwljfrrpfZaqchyTymbszju39-77-4034Iguxuxnlye statusPatient at Baseline [facility] Mental Status JroyOwfvcrjicdNoyyvuNklozdbl27-49-2975Kvpgdorlt functionCognitive Status Patient at [facility] Clinical Notes 07-15-2020 to 02-17-2025 Note Date & [id number] History of Present illness Narrative* Colton Kiransteven, DO - 02/17/2025 11:59 PM EDT Patient Name: Rashard Lyman Date of : 1960 Date of Service: 02/09/2025 Facility: [facility] Type of Visit: Skilled Visit Subjective Rashard Lyman is a 65 y.o. male seen today at half-way facility for skilled visit. Rashard is in [...] neuropathy, with long-term current use of insulin ([facility]) 2. End stage renal disease ([facility]) 3. Hemodialysis-associated hypotension 4. Acquired absence of left foot ([facility]) 5. Acquired absence of right foot ([facility]) He is doing a bit better with his blood sugars but blood pressure still is a problem. He is alreadytaking midodrine. He is not a candidate for Florinef. Continue therapy to reach maximum improvement. ELECTRONICALLY SIGNED BY: Colton Lamb DO documented in this encounterWVUMedicine [facility] History of Present illness Narrative* Colton Lamb DO - 02/16/2025 11:59 PM EDT Patient Name: Rashard Lyman Date of : 1960 Date of Service: 02/16/2025 Facility: [facility] Type of Visit: Skilled Visit Subjective Rashard Lyman is a 65 y.o. male seen today at half-way facility for skilled visit Rashard isn't therapy. [...] neuropathy, with long-term current use of insulin ([facility]) 2. End stage renal disease ([facility]) 3. Dependence on renal dialysis 4. Hemodialysis-associated hypotension He is currently on midodrine 10 mg T.I.D. for hypotension. Consider a p.r.n. dose. Continue therapy to reach maximum improvement. Encouraged diet for improved sugars. All medications reviewed and are medically necessary. ELECTRONICALLY SIGNED BY: Colton Lamb DO documented in this encounterClinton Memorial HospitalCurvo [id number] History of Present illness Narrative* Colton Lamb DO - 02/02/2025 12:12 PM EDT Patient Name: Rashard Lyman Date of : 1960 Date of Service: 02/02/2025 Facility: [facility] Type of Visit: Skilled Visit Subjective Rashard Lyman is a 64 y.o. male seen today at half-way facility for dkilled visit. Rashard is in [...] neuropathy, with long-term current use of insulin ([facility]) 2. Unspecified trochanteric fracture of right femur, subsequent encounter for closed fracture with routine healing 3. Nausea 4. Acquired absence of left foot ([facility]) 5. Acquired absence of right foot ([facility]) 6. End stage renal disease ([facility]) Will add ondansetron 4 mg Q4 hrs [...] BY: Colton Lamb DO documented in this encounterClinton Memorial Hospitale994 Sturgis [id number] History of Present illness Narrative* Colton Lamb DO - 01/26/2025 11:59 PM EDT Patient Name: Rashard Lyman Date of : 1960 Date of Service: 01/26/3035 Facility: [facility] Type of Visit: Skilled Visit Subjective Rashard Lyman is a 64 y.o. male seen today at half-way facility for skilled visit. When his participating [...] neuropathy, with long-term current use of insulin ([facility]) 3. End stage renal disease ([facility]) 4. Acquired absence of right foot ([facility]) 5. Acquired absence of left foot ([facility]) His blood glucose readings were reviewed and [...] BY: Colton Lamb DO documented in this encounterClinton Memorial Hospitale994 Sturgis [id number] History of Present illness Narrative* Colton Lamb DO - 01/19/2025 11:59 PM EDT Patient Name: Rashard Lyman Date of : 1960 Date of Service: 01/19/2025 Facility: [facility] Type of Visit: Admission H&P Subjective Rashard Lyman is a 64 y.o. male seen today at half-way facility for admission H&PVaishali Munoz presents today from [facility] to [facility] for therapy. He has a fairly complex medical history. He recently fell and fractured his right hip. He had intensive inpatient therapy following his hospital stay at [facility]. He requires physical therapy as [...] musculoskeletal pain COPD (chronic obstructive pulmonary disease) ([facility]) Diabetes mellitus ([facility]) Fracture, clavicle History of MRSA (methicillin resistant Staphylococcus aureus) Neuropathy Renal failure Dialysis since 04/2014 Past Surgical History: Procedure Laterality Date APPENDECTOMY CHOLECYSTECTOMY DIALYSIS FISTULA CREATION Right arm INJECTION CAUDAL EPIDURAL WITH CATHETER, STEROID N/A 06/05/2019 Performed by Jefferson Bryant MD at [facility] PAIN TOE AMPUTATION Right 5th TONSILLECTOMY Family [...] Chronic obstructive pulmonary disease, unspecified COPD type ([facility]) 3. End stage renal disease ([facility]) 4. Dependence on renal dialysis 5. Peripheral vascular disease, unspecified 6. Acquired absence of left foot ([facility]) 7. Acquired absence of right foot ([facility]) 8. Type 2 diabetes mellitus with diabetic neuropathy, with long-term current use of insulin ([facility]) 9. Hyperlipidemia, unspecified hyperlipidemia type 10. Gastroesophageal reflux disease, unspecified whether esophagitis present 11. Psoriasis, unspecified [facility] Continue current regimen. Therapy evaluation. Full code. Continue dialysis. He is using high risk medication with benefit. Can not take NSAIDs. Continue midodrine 10 mg twice a day for hypotension. Good rehab potential. ELECTRONICALLY SIGNED BY: Colton Lamb DO documented in this encounterWVUMedicine Barnesville Hospital08-27-2025 Evaluation note* Diagnosis Onset Date Resolution [...] 2:49amPre-operative cardiovascular examinationacuteAu2024 2:49amPsoriasisacuteAugust 2024 2:49amRadius distal fractureacuteAugila [facility]20[facility] 2:49amType 2 diabetes mellitus with diabetic chronic kidney disease acuteAu2024 2:49amCOPD (chronic obstructive pulmonary disease)chronic December 23, 2024 2:49amDiabeteschronicAugust 2024 2:49am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chronicAugu2024 2:49amGERD (gastroesophageal reflux disease)chronicDecember 23, 2024 2:49amHypertensionchronicAugust 2024 2:49am [facility] Work Phone: [phone]) 724-469908-27-2025 Evaluation note* Diagnosis Onset Date Resolution Status [...] disease acuteAugus2024 2:49amCOPD (chronic obstructive pulmonary disease)chronic [place] 2024 2:49amDiabeteschronicAugust 2024 2:49am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chronicAugust 2024 2:49amGERD [...] 4:06pmGERD (gastroesophageal reflux disease)chronicSept2024 4:06pmHypertension chronicSept2024 4:06pm [facility] Work Phone: 1(399) 362-354408-27-2025 Evaluation note* Diagnosis Onset Date Resolution Status [...] disease acuteAu2024 2:49amCOPD (chronic obstructive pulmonary disease)chronic [place] 2024 2:49amDiabeteschronicAugust 2024 2:49am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chronicAugust 2024 2:49amGERD [...] 2024 10:59amOther specified postprocedural statesnoneactiveOctober 2024 10:59am [facility] Work Phone: [phone] Evaluation + Plan note* Assessment & Plan Note - Nima Lee MD - 02/27/2024 11:44 AM EDTAssociated Problem(s): Critical limb ischemia of left lower extremity with gangrene (CMS-HCC) PVR [facility]10-31-2024 Miscellaneous Notes* Assessment & Plan Note - Nima Lee MD - 02/27/2024 11:44 AM EDTAssociated Problem(s): Critical limb ischemia of left lower extremity with gangrene (CMS-HCC) PVR documented in this encounterWVUMedicine Barnesville Hospital10-31-2024 History of Present illness Narrative* Nima [...] musculoskeletal pain COPD (chronic obstructive pulmonary disease) ([facility]) Diabetes mellitus ([facility]) Fracture, clavicle History of MRSA (methicillin resistant Staphylococcus aureus) Neuropathy Renal failure Dialysis since 04/2014 Past Surgical History: Past Surgical History: Procedure Laterality Date APPENDECTOMY CHOLECYSTECTOMY DIALYSIS FISTULA CREATION Right arm INJECTION CAUDAL EPIDURAL WITH CATHETER, STEROID N/A 06/05/2019 Performed by Jefferson Bryant MD at [facility] PAIN TOE AMPUTATION Right 5th TONSILLECTOMY Social [...] Plan PVR 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 Diagnoses and [...] you for your understanding. documented in this encounterWVUMedicine Barnesville Hospital04-24-2023 NotePROCEDURE: XR FOOT LT MIN 3 [...] Electronically authenticated by: PRISCA SANDERSON Date: 2022-08-20 13:00[facility]04-19-2023 NoteEXAM: XR CHEST 2 V HISTORY: Pre-surgery [...] Electronically authenticated by: CHINO VENEGAS Date: 2022-08-15 15:06[facility]04-05-2023 NotePROCEDURE: XR FOOT LT MIN 3 VIEWS [...] Electronically authenticated by: JAMESON SALGUERO Date: 2022-08-01 07:49[facility]11-03-2022 NoteCONSULTATION CONSULTATION DATE: 03/01/2022 This is a [...] with certain activities such as standing, walking, dispatch lead and evening hours, and changes in the [...] patient agrees with the plan of care.[facility] [id number] NoteCONSULTATION PROCEDURE DATE: 03/01/2022 PREOPERATIVE DIAGNOSIS: Right [...] fan-like pattern and patient tolerated procedure well.[facility] [id number] NotePROCEDURE: XR ANKLE LT MIN 3 V, [...] authenticated by: PRISCA SANDERSON Date: 2021-12-22 10:12[facility] CampusNgaomtny39-77-7089 NotePROCEDURE: XR ANKLE LT MIN 3 V, [...] Electronically authenticated by: PRISCA SANDERSON Date: 2021-12-22 10:[facility]08-26-2022 NotePROCEDURE: XR ANKLE LT MIN 3 [...] Electronically authenticated by: PRISCA SANDERSON Date: 2021-12-22 10:[facility]08-26-2022 NotePROCEDURE: XR ANKLE LT 2V HISTORY: Pain ; left ankle external fixation application COMPARISON: None. FINDINGS: BONES:3 intraoperative spot fluoroscopic images demonstrate external fixation device surrounding the left ankle. IMPRESSION: External fixation device application. Electronically authenticated by: PRISCA SANDERSON Date: 2021-12-22 10:[facility]08-16-2022 NotePROCEDURE: XR FOOT LT MIN 3 VIEWS [...] Electronically authenticated by: PRISCA SANDERSON Date: 2021-12-12 08:[facility]08-04-2022 NoteCONSULTATION The patient returns to the clinic [...] up in clinic in three months' time.[facility] [id number] NoteCONSULTATION CONSULTATION DATE: 11/22/2021 HISTORY OF PRESENT [...] return to the clinic to receive those.[facility] CampusKiefvzse00-81-2903 NotePROCEDURE: XR FOOT LT MIN 3 VIEWS [...] authenticated by: PRISCA SANDERSON Date: 2021-11-14 15:42[facility] [id number] NotePROCEDURE: XR FOOT LT MIN 3 VIEWS [...] authenticated by: JAMESON SALGUERO Date: 2021-11-07 19:28[facility] CampusSsrkjbmp86-78-0845 Evaluation note* Encounter Date Diagnosis Assessment Notes [...] takes midodrine as well as stated above. [employer] Other 03-27-2021 NoteMR#: [id number] [facility] Pt. Name: Rashard Lyman Admitted: 07/13/2020 Discharged: [...] chest pain. Also, there is mention on [place] records of large inferior/lateral wall abnormality in [...] ON DISCHARGE: A (more content not included)...The [facility]03-19-2021 NoteMR#: [id number] [facility]. Name: Rashard Lyman Surgery Date: 07/14/2020 Room #: [id number] Date of : 1960 PROCEDURE NOTE ATTENDING: [...] Pham MD Date Trans: 07/15/2020 01:32 P/ [id number] cc: Nima Wynne MD [address] [place], [place] [address] [address]03-19-2021 NoteMR#: [id number] [facility] Pt. Name: Rashard Lyman Surgery Date: 07/14/2020 Room #: [id number] Date of : 1960 PROCEDURE NOTE ATTENDING: Nima Wynne MD Procedure: Left sided US guided Thoracentesis Pre-procedure Diagnosis: Left pleural effusion Post-procedure Diagnosis: same as above Prior to Procedure: Informed Consent:The risks, benefits, indications, potential complications, and alternatives were explained to the patient/family and informed consent obtained Attending Staff: Nima Wynne Resident/Fellow/FOOD EDITOR: Davis Pham Indications: Nura Munoz is 60 [...] Wynne MD Date Trans: 07/15/2020 12:53 P/ [id number]* Diagnosis Onset Date Resolution Status Hyperglycemia acutePneumoniaacutePsoriasisacuteType 2 diabetes mellitus with diabetic chronic kidney diseaseacuteCKD (chronic kidney disease) stage 4, GFR 15-29 ml/minchronic COPD (chronic obstructive pulmonary disease)chronic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 chronicGERD (gastroesophageal reflux disease)chronicObesities, morbidchronic Peripheral vascular occlusive diseasechronicStatus post amputation of toe of right footchronic [facility]trEvaluation note* Diagnosis Onset Date Resolution Status MARISOL (acute kidney injury) acuteAnemia of renal diseaseacuteAtelectasis of left lungacuteFibrothoraxacute History of pleural effusionacuteMetabolic acidosisacutePericarditisacute Pleuritic chest painacutePsoriasisacuteType 2 diabetes mellitus with diabetic chronic kidney diseaseacuteCKD (chronic kidney disease) stage 4, GFR 15-29 ml/minchronicCOPD (chronic obstructive pulmonary disease)chronic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chronicGERD (gastroesophageal reflux disease)chronicHypertension [id number], morbidchronicPeripheral vascular occlusive diseasechronicStatus post amputation of toe of right footchronic [facility]trEvaluation note* Diagnosis Critical limb ischemia of left lower extremity with gangrene ([facility] Primary documented [facility] encounter [facility] SystemEvaluation noteNo assessment information available [facility] Work Phone: Evaluation note* Diagnosis Critical limb ischemia of left lower extremity with gangrene ([facility])- Primary Unspecified trochanteric fracture of right femur, subsequent encounter for closed fracture with routine healing- Primary Chronic obstructive pulmonary disease, unspecified COPD type ([facility]) End stage renal disease ([facility]) End stage renal disease Dependence on renal dialysis Renal dialysis status Peripheral vascular disease, unspecified Acquired absence of left foot ([facility]) Acquired absence of right foot ([facility]) Type 2 diabetes mellitus with diabetic neuropathy, with long-term current use of insulin ([facility]) Hyperlipidemia, unspecified hyperlipidemia type Gastroesophageal reflux disease, unspecified whether esophagitis present Psoriasis, unspecified documented in this encounter [facility]* Diagnosis Critical limb ischemia of left lower extremity with gangrene ([facility] Primary Type 2 diabetes mellitus with diabetic neuropathy, with long-term current use of insulin ([facility])- Primary Unspecified trochanteric fracture of right femur, subsequent encounter for closed fracture with routine healing Nausea Nausea alone Acquired absence of left foot (CMS-HCC) Acquired absence of right foot ([facility]) End stage renal disease ([facility]) End stage renal disease documented in this encounter [facility]* Diagnosis Critical limb ischemia of left lower extremity with gangrene ([facility])- Primary Unspecified trochanteric fracture of right femur, subsequent encounter for closed fracture with routine healing- Primary Type 2 diabetes mellitus with diabetic neuropathy, with long-term current use of insulin ([facility]) End stage renal disease ([facility]) End stage renal disease Acquired absence of right foot ([facility]) Acquired absence of left foot ([facility]) documented in this encounter [facility]* Diagnosis Critical limb ischemia of left lower extremity with gangrene ([facility])- Primary Type 2 diabetes mellitus with diabetic neuropathy, with long-term current use of insulin ([facility])- Primary End stage renal disease ([facility]) End stage renal disease Dependence on renal dialysis Renal dialysis status Hemodialysis-associated hypotension Hypotension of hemodialysis documented [facility] this encounter [facility]* Diagnosis Critical limb ischemia of left lower extremity with gangrene ([facility] Primary Type 2 diabetes mellitus with diabetic neuropathy, with long-term current use of insulin ([facility])- Primary End stage renal disease ([facility]) End stage renal disease Hemodialysis-associated hypotension Hypotension of hemodialysis Acquired absence of left foot ([facility]) Acquired absence of right foot ([facility]) documented in this encounter [facility] SystemHistory general Narrative - Reported* Type Description Date Medical History ESRD Medical HistoryMOMedical HistoryHTNMedical HistoryDMMedical HistoryCOPDMedical HistoryAllergic reaction to Vicryl Sutures use Monofilament suturesMedical HistoryLOW BACK PAIN/ HAIRLINE FRACTURESurgical HistoryDialysis catheter placementsSurgical HistoryRight 5th toe oyhuhbnoqt63/2015Surgical History Creation rigth radiocephalic AVF06/2014Surgical HistoryRevision right Maged AVF by transposition of cephalic vein to subcuticular position/fistulogram/balloon angioplasty cephahlic vein inflow gkzyxyvc35/2015Surgical Historyall toes removed from left footSurgical HistoryappendectomySurgical Historygall bladder removedSurgical HistoryLEFT FOOT WOUND AND AMPUTATION OF ALL [id number] HistoryINJECTIONS IN HIS LOWER BACKHospitalization Historysee above [employer] Other Hospital Discharge instructions Additional Instructions You are scheduled for an outpatient follow up ECHOCARDIOGRAM in 2 weeks at [facility] to re-assess your pericardial effusions on 09/06/2020 [...] knee Educate on high risk fall precautions [facility] CtrHospital Discharge instructionsTr[facility] CtrHospital Discharge instructionsTr[facility] InstructionsNot on filedocumented in this encounterLutheran Hospital System InstructionsNot on filedocumented in this encounterLutheran Hospital System InstructionsNot on filedocumented in this encounterLutheran Hospital System InstructionsNot on filedocumented in this encounterLutheran Hospital SystemReason for referral (narrative)No reason for referral information availableTrinity Health [facility] Work Phone: Assessments No Assessments Information [...] 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 GERD (gastroesophageal reflux disease) Hypertension [id number] Obesities, morbid Peripheral vascular occlusive disease Status [...] 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 GERD (gastroesophageal reflux disease) Hypertension [id number] Obesities, morbid Peripheral vascular occlusive disease Status [...] 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 GERD (gastroesophageal reflux disease) Hypertension [id number] Obesities, morbid Peripheral vascular occlusive disease Status [...] cardiovascular examination December 23, 2024 2:49am Psoriasis [place] 27th, 2025 2: 49am Radius distal fracture [...] DATE CREATED AUTHOR 09/11/2020 [facility] DATE CREATED AUTHOR AUTHOR'S ORGANIZ ATION 10/21/2020 [facility] DATE CREATED AUTHOR AUTHOR'S ORGANIZ ATION 10/05/[address] [facility] DATE CREATED AUTHOR AUTHOR'S ORGANIZ ATION 06/03/2023 [facility] DATE CREATED AUTHOR AUTHOR'S ORGANIZ ATION 11/22/2023 [facility] DATE CREATED AUTHOR AUTHOR'S ORGANIZ ATION 02/18/2024 [facility] DATE CREATED AUTHOR AUTHOR'S ORGANIZ ATION 02/13/2025 [facility] Goals (unrecognized section [...] Ari Batista MDOther ProviderActiveStart: December 23, 2024 Alyssia Jacobo NP-COther ProviderActiveStart: December 23, 2024 Nima [...] Love Moody LPNOther ProviderActiveStart: December 30, 2024 Air Batista MDOther ProviderActiveStart: December 30, 2024 Alyssia Jacobo , PAIRER-COther ProviderActiveStart: December 30, 2024 Nima Lee MDOther [...] ProviderActiveStart: December 30, 2024 Patricia Carmona , PAIRER-COther ProviderActiveStart: December 30, 2024 Nick Jerez , [...] ProviderActiveStart: December 30, 2024 Elizabeth Monroe , PAIRER-COther ProviderActiveStart: December 30, 2024 Carie Abraham MDOther [...] ProviderActiveStart: January 06, 2025 Patricia Carmona , PAIRER-COther ProviderActiveStart: January 06, 2025 Nick Jerez , [...] Roger , DOOther ProviderActiveStart: January 06, 2025 eLno Dela Cruz MDOther ProviderActiveStart: January 06, 2025 [...] Baez MDOther ProviderActiveStart: January 13, 2025 Patricia Caromna , PAIRER-COther ProviderActiveStart: January 13, 2025 Nick Jerez , [...] Danilo Pack ProviderActiveStart: December 23, 2024 Alyssia Batista , PAIRER-COther ProviderActiveStart: December 23, 2024 Nima Lee MDOther [...] ProviderActiveStart: December 30, 2024 Alyssia Batista , PAIRER-COther ProviderActiveStart: December 30, 2024 Nima Lee MDOther [...] MemberRelationshipSpecialtyStart DateEnd Date Jose Juarez Jr., DO [address] [place] [id number] PCP - GeneralInternal Mjrnjlnn54/15/17 Team Status: Inactive Member Role Status Dates Chino Elliott DPM MS Attending Provider Active Start: August 28, 2024 End: August 28, 2024Team MemberRelationshipSpecialtyStart DateEnd Date Jose Juarez Jr., DO [address] [place] [id number] PCP - GeneralInternal Orimiuip30/15/17Team MemberRelationshipSpecialtyStart Date End Date Jose Juarez Jr., DO [address] [place] [id number] PCP - GeneralInternal Juyjlcsi41/15/17Team MemberRelationshipSpecialtyStart Date End Date Jose Juarez Jr., DO [address] [place] [id number] PCP - GeneralInternal Kddpcuhu68/15/17Team MemberRelationshipSpecialtyStart Date End Date Jose Juarez Jr., DO [address] [place] [phone] PCP - GeneralInternal Usayzkmb12/15/17Team MemberRelationshipSpecialtyStart Date End Date Jose Juarez MD [address] [place] [id number] PCP - GeneralInternal Medicine09/07/24Team MemberRelationshipSpecialtyStart Date End Date Jose Juarez Jr., DO [address] [place] [address] [phone] PCP - GeneralInternal Nexkarcf66/15/17 FOR RECORDS PERTAINING TO PATIENTS WHO ARE [...] BE BASED ON THE PRIMARY CLINICAL RECORDS. [facility] FFFavs [facility]. provides no warranty or guarantee of the accuracy or completeness of information in this document.
== END 2025-03-17 11:59 | disposition home or self-care (01) ==
LOC: WC 12:00
PROVIDERS: PCP Internal Medicine; Visit Provider Physician Assistant
DX: E11.621 Type 2 diabetes mellitus with foot ulcer (principal); L97.425 Non-pressure chronic ulcer of left heel and midfoot with muscle involvement without evidence of necrosis; L97.412 Non-pressure chronic ulcer of right heel and midfoot with fat layer exposed
CPT/HCPCS: 11043

== ENCOUNTER 2025-04-07 10:00 | Outpatient (OUT) | payer BC, SELFPAY ==
--- OUTSIDE RECORDS SUMMARY | 2025-04-07 10:09 | XMS_ITS | CCD ---
Author Organization [facility] Care Team Providers Care Team Facilitator Name Role Phone Jose Juarez Primary Care Provider [phone] Eugene Morel Admit Provider [phone] Eugene Morel Attending Provider [phone] Gordon Ewing Attending Provider Patria Cheung Attending Provider SAVANNAH REYNOLDS Admitting Unavailable SAVANNAH REYNOLDS Attending Unavailable JOSE JUAREZ Primary Care Unavailable JOSE JUAREZ Referring Unavailable [place] Procedure Practitioner Unavailab TRISHA Ozuna Surgeon Unavailable NIMA WYNNE Surgeon Unavailable MI Procedure Practitioner Unavailab Jose Andres Primary Care Provider Eugene Morel Admit Provider Gordon Ewing Attending Provider [phone] Patria Cheung Attending Provider Latrice Lehman Attending Provider [phone] PROVIDER, UNKNOWN Attending Unavailable PROVIDER, UNKNOWN [...] ELLIOTT Consulting Unavailable CHINO ELLIOTT Attending Unavailable CHNIO ELLIOTT Admitting Unavailable NEFCY, PETER Consulting Unavailable [...] DR RIOS Primary Care Unavailable HIGHLANDER, CHINO Hopsno Admitting Unavailable HIGHLANDER, CHINO Hopson Attending Unavailable [...] Jr., Jose MAE Primary Care Provider [facility] DPM, Chino Hopson Attending Provider Kenya DPM, Chino Hopson Attending Provider [facility] DPM, Chino Hopson Attending Provider Jose Juarez JR Primary Care Provider Celia SIGALA, Enrique Admit Provider [phone] Lanie SIGALA, Leno Jennings Other Provider Leigh SIGALA, Carie Other Provider Fransisco AGUSTIN, Love Other Provider Unavailable Lester SIGALA, Ari Attending Provider Ari Batista MD Other Provider Lester NIETO-C, Alyssia Tilley Other Provider [phone] Jesus SIGALA, Nima Gan Other Provider Leonardo SIGALA, Benjamin Richter Other Provider Maite SIGALA, Luis Enrique Hopson Other Provider Pbalo SIGALA, Nir Dennison Other Provider Roger MAE, Yasonia Other Provider London SIGALA, Mya Other Provider Ronald SIGALA, Clayton Other Provider Camila GOOD, Aleta Other Provider Raad SIGALA, Doc Hopson Other Provider [phone] Kami SIGALA, Raimundo Attending Provider Ronald SIGALA, [...] Provider Unavailable Son Hampton DO Other Provider [phone] Ghislaine Fields APRN Other Provider Zaid June DO Other Provider [phone] Tye SIGALA, Luz Maria Dennison Other Provider Angelina Ren APRN Other Provider Stefany Herring APRN Other Provider Willian Soto MD Other Provider Unavailable Jerry Butler MD Other Provider Cici Reilly MD Other Provider [phone] Ericka Otto APRN Other Provider Unavailable Talia Pinedo MD Other Provider Clayton Ramsey MD Other Provider Dewayne Akbar MD Other Provider Josemanuel Talavera MD Other Provider Mary Pichardo APRN Other Provider Bolzan-Basilia FLORENTINO, Nicoletto Other Provider [phone] Alanis RUBIO, Fanta Other Provider Unavailable Kike Pollack MD Other Provider Mabel SHAGGER-C, Elizabeth Other Provider Unavailable Raimundo Mcclure MD Other Provider Aleta Jensen APRN Attending Provider Larry Charles DO, Charles L Primary Care Provider Donnell SHAGGER-C, Alyssia Tilley Other Provider Bryan Cordova DO Other Provider Unavailab Wilfrido Kirk DO Attending Provider Chino Elliott Admitting Unavailable Chino Elliott Attending Unavailable Chino Elliott Attending Unavailable Chino Elliott Admitting Unavailable Enrique Yang Admitting Unavailable Jose Juarez Primary Care Unavailable Leigh Carie Consulting Unavailable Phillip Duran Attending Unavailable Love Moody Consulting Unavailable Ari Batista Consulting Unavailable Alyssia Jacobo Consulting Unavailable Niam Lee Consulting Unavailable Benjamin Patterson Consulting UnavailLuis [...] Provider Jose Juarez MD Primary Care Provider Unavailable Unavailable Unavailable Allergies Allergy ClassificationReported Allergen(s)Allergy TypeDate of OnsetReaction(s) Facilityexenatide (1 source)exenatideDrug Mmfkegf06-99-8367Afw [facility] RepositoryNSAIDs (5 sources)celecoxib; Translations: [Celebrex]Drug Wupfyst45-08-9195Nawtfwkvrs BreathingThe [facility] RepositoryPhenolphthalein (1 source)PhenolphthaleinDrug Zwdfsnb21-21-1382Rwr [facility] Repository (16 sources)celecoxib; Translations: [celecoxib]Drug Bsctwok37-69-7474Soobhepvum Breathing, bad for kidney, Difficulty Breathing, bad [facility]Pro[facility] Repository (14 sources)Aspirin; Translations: [ASPIRIN]Drug Nipexsy94-72-2217wkc for kidney [facility] Repository (3 sources)AmoxicillinDrug Znbjfqa38-98-0852Cdc [facility] Repository (1 source)celecoxibDrug Wecibni65-27-4311[facility] Repository (1 source)exenatideDrug Dcxxymu13-56-9537QvbUk Healthcare Repository (1 source)PhenolphthaleinDrug Hockmbr16-50-6329Qit [facility] Repository (8 sources)exenatide; Translations: [EXENATIDE]Drug Xwpptoo32-70-0952HdsRooemk Repository (8 sources)HYLAN G-F 20; Translations: [HYLAN G-F 20]Propensity to adverse reactions to drug (disorder)91-82-1285StyM[facility] Repository (2 sources)exenatideDrug Arjhrej20-65-6860GmdfhxqdvTrumbull [facility] (2 sources)OXcarbazepineDrug Gazfupp37-47-8728GkioqhfrxTrumbull Regional Medical Center (1 source)AspirinDrug Ffipfuu84-89-1833WddccypcsTrumbull Regional Medical Center Repository Medications Current Medications MedicationDrug Class(es)DatesSig (Normalized)Sig (Original)acetaminophen 500 mg oral tablet (2 sources)Start: 98-58-9545muzh 2 tablets by mouth three times dailyAlbuterol Sulfate (16 sources)beta2-Adrenergic AgonistStart: 58-15-6979pgne 1 puff(s) by inhalation every six hoursAlbuterol Sulfate Active 2 PUFF Inhalation Q6H December 31, 2018 3:14pmStart: 09-30-2017 End: 81-64-9609lyni 1 puff(s) by inhalation every six hoursAlbuterol Sulfate Discontinued 2 PUFF INHALATION Q6H September 30, 2017 6:15pm November 08, 2017 1:23pm Start: 09-30-2017 End: 16-12-7769tkkg 1 puff(s) by inhalation every six hours [...] oral tablet (1 source)Dihydropyridine Calcium Channel BlockerStart: 43-27-8858nqes 10 mg by mouth once dailyAmlodipine Active 10 MG Oral Daily January 05, 2019 2:10pm B Complex And C 20-Folic Acid (Renal Caps) 1 mg Capsule (4 sources)Start: 01-27-6861coqq 1 capsule by mouth once dailyB Complex With C 20-Folic Acid (Renal Caps) 1 mg Capsule (5 sources)Start: 04-63-3022uxsk 1 capsule by mouth once dailyB Complex With C 20-Folic Acid (Renal Caps) 1 mg Capsule Active 1 CAP PO Daily August 18, 2020 9:20pmStart: 91-20-7444yrij 1 capsule by mouth once dailyB Complex With C 20- Folic Acid (Renal Caps) 1 mg Capsule Active 1 CAP PO Daily August 18, 2020 12:0 0ambiotin 5 mg disintegrating oral tablet (7 sources)Start: 54-54-5249cxcv 5000 ug by mouth twice dailyBiotin Active 5000 MCG Oral Twice daily September 30, 2017 6:18pmbiotin 5,000 mcg tablet,disintegrating Dissolve 10,000 mcg on tongue 2 (two) times a day. Zgrrqu52 hr buPROPion hydrochloride 300 mg extended release oral tablet (16 sources)AminoketoneStart: 94-40-1954etio 1 tablet by mouth once dailyStart: 21-76-6208maaa 150 mg by mouth once dailyBupropion Hcl Active 150 MG Oral Daily September 30, 2017 6:19pmStart: 29-92-3376oabz 1 tablet by mouth every twelve hours in the morningbuPROPion SR (WELLBUTRIN SR) 150 mg 12 hr tablet Take 1 tablet (150 mg total) by mouth in the morning. Activecolesevelam hydrochloride 625 mg oral tablet (16 sources)Bile Acid SequestrantStart: 57-07-9548qcwy 3 tablets by mouth three times daily at mealtimeColesevelam (Welchol) 625 mg Tablet Active 1875 MG PO THREE TIMES DAILY WITH MEALS September 30, 2017 6:42pmStart: 67-60-0050degw 1250 mg by mouth three times daily at mealtimeColesevelam Active 1250 MG Oral THREE TIMES DAILY WITH MEALS September 30, 2017 6:42pmStart: 09-30-2017 End: 89-21-3110svxn 3 tablets by mouth twice daily at mealtimeColesevelam (Welchol) 625 mg Tablet Discontinued 1875 MG PO TWICE DAILY WITH MEALS September 30, 2017 12:00am December 29, 2024 12:20pmcolesevelam (WELCHOL) 625 mg tablet Take 650 mg by mouth Medrol Dose Pack scheduling ONLY. Active1 ml darbepoetin ml 0.06 mg/ml injection (2 sources)Erythropoiesis-stimulating AgentStart: 63-94-0792kwfb 60 ug intravenously every weekdocusate sodium 100 mg oral capsule (18 sources)Start: 71-27-1175lblf 1 capsule by mouth twice dailyStart: 36-13-9551vnka 100 mg by mouth twice dailyDocusate Sodium Active 100 MG Oral Twice daily December 31, 2018 3:14pmStart: 09-30-2017 End: 04-74-5933gzrh 1 capsule by mouth twice dailyDocusate Sodium (Colace) 100 mg Capsule Discontinued 100 MG PO Twice daily September 30, 2017 12:00am November 08, 2017 1:27pmDULoxetine 60 mg delayed release oral capsule (19 sources)Serotonin and Norepinephrine Reuptake InhibitorStart: 48-63-3123gitv 1 capsule by mouth once dailyStart: 09-30-2017 End: 51-95-2893krga 1 capsule by mouth at bedtimeDuloxetine 30 mg capsule,delayed release(DR/EC) Discontinued 30 MG PO Bedtime September 30, 2017 12:00am December 31, 2018 3:08pmfamotidine 40 mg oral tablet (17 sources)Histamine-2 Receptor AntagonistStart: 68-60-1113Ngdbl: 08-18-2020 take 1 tablet by mouth twice dailyStart: 14-38-8534ksdn 20 mg by mouth twice dailyFamotidine Active 20 MG Oral Twice daily September 30, 2017 6:23pmFinerenone (3 sources)Start: 25-18-8424dhcp 1 tablet by mouth once dailyfolic acid 1 mg oral tablet (7 sources)Start: 38-65-4560hhuo 1 mg by mouth once dailyFolic Acid Active 1 MG Oral Daily December 31, 2018 3:14pm ALL DAYS EXCEPT SATURDAYheparin sodium, porcine 5000 unt/ml injectable solution (2 sources)Unfractionated Heparin, Anti-coagulantStart: 43-98-7209vznzkr 5000 [IU] by subcutaneous injection every twelve hours3 ml insulin aspart, human 100 unt/ml pen injector (8 sources)Insulin AnalogStart: 12-29-2024 End: 09-36-8348Idbvj: 12-23-2024 End: 01-12-0197Qxkqkjp Aspart U-100 (Novolog U-100 Insulin Aspart) 100 unit/mL solution Discontinued 1 sliding scale dose SUBCUT As Directed December 23, 2024 12:00am January 15, 2025 12:24pm3 ml insulin glargine 100 unt/ml pen injector (5 sources)Insulin AnalogStart: 99-22-0011Ivgve: 12-29-2024 End: 77-65-4945Xtrrnhr Glargine (Lantus Solostar U-100 Insulin) 100 unit/mL (3 mL) Insulin Pen Discontinued 40 UNIT SUBCUT Daily 04 27December 29, 2024 12:00am January 15, 2025 12:23pmlidocaine 0.04 mg/mg medicated patch (2 sources)Antiarrhythmic, Amide Local AnestheticStart: 05-65-7411fvrsm 1 dose topically once dailylinezolid 600 mg oral tablet (1 source)Oxazolidinone AntibacterialStart: 99-12-4312erxx 600 mg by mouth twice dailyLinezolid Active 600 MG Oral Twice daily 28 14 January 05, 2019 2:10pm Magnesium (1 source)Magnesium 400 MG as directed Orally Activemeclizine hydrochloride 25 mg chewable tablet (17 sources)AntiemeticStart: 97-39-5158aueb 25 mg by mouth once dailyMeclizine Active 25 MG Oral Daily September 30, 2017 6:30pmStart: 09-30-2017 End: 02-85-5716hdxg 1 tablet by mouth every eight hours as needed for dizziness Meclizine 25 mg Tablet,Chewable Discontinued 25 MG PO Every 8 hours as needed for Dizziness September 30, 2017 12:00am December 29, 2024 12:20pmtake 1 tablet by mouth every eight hoursMeclizine HCl 25 MG 1 tablet as needed Orally three times a day Activemetoprolol tartrate 25 mg oral tablet (1 source)beta-Adrenergic BlockerStart: 54-39-9880guir 25 mg by mouth twice dailyMetoprolol Tartrate Active 25 MG Oral Twice daily 120 60 January 05, 2019 2:10pmmidodrine hydrochloride 5 mg oral tablet (3 sources)alpha-Adrenergic AgonistStart: 19-32-9784dczg 2 tablets by mouth before breakfasttake 1 tablet by mouth twice daily in the morningMidodrine HCl 5 MG TAKE 1 TABLET BY MOUTH TWICE DAILY IN THE MORNING AND SUPPER IF BLOOD PRESSURE IS LESS THAN 90 STANDING Oral Activemontelukast 10 mg oral tablet (17 sources)Leukotriene Receptor AntagonistStart: 75-76-5902jeky 1 tablet by mouth at bedtimeMultivit With Txg-Np-Shgrmbun (One-A-Day Men's 50 Plus) 400-370 mcg tablet (3 sources)Start: 56-85-6277ksov 50-400 tablets by mouth once dailynystatin 100 unt/mg topical powder (2 sources)Polyene AntifungalStart: 83-28-0772utjzwunrovt 4 mg oral tablet (1 source)Serotonin-3 Receptor Antagonisttake 1 tablet by mouth every eight hours as neededOndansetron HCl 4 MG TAKE 1 TABLET BY MOUTH EVERY 8 HOURS NEEDED Oral for 3 ActiveoxyCODONE hydrochloride 5 mg oral tablet (2 sources)Opioid AgonistStart: 52-83-9770jrle 2 tablets by mouth every six hours as needed for painpolyethylene glycol 3350 04234 mg powder for oral solution (3 sources)Osmotic LaxativeStart: 63-74-1736Wrhejpq 17 grams orally at hour of sleep Activepregabalin 75 mg oral capsule (6 sources)Start: 50-96-7945ffwb 1 capsule by mouth three times dailypregabalin (LYRICA) 75 mg capsule Indications: Diabetic peripheral neuropathy (CMS-HCC) Take 1 capsule (75 mg total) by mouth 3 (three) times a day. 90 capsule 1 04/16/2019 ActiveRenal Softgels (1 source)Renal Softgels Activerosuvastatin calcium 20 mg oral tablet (20 sources)HMG-CoA Reductase InhibitorStart: 50-02-5409zgli 1 tablet by mouth at bedtimeStart: 71-45-3467liar 10 mg by mouth once dailyRosuvastatin (Crestor) 40 mg Tablet Active 10 MG PO Daily August 18, 2020 9:12pmStart: 08-18-2020 End: 64-71-7706Zedkbfjoundh (Crestor) 40 mg Tablet Discontinued 20 MG PO Daily August 18, 2020 12:00am August 25, 2020 12:34pmStart: 70-91-0412quir 10 mg by mouth once dailyRosuvastatin Active 10 MG Oral Daily September 30, 2017 6:35pm sevelamer carbonate 800 mg oral tablet (20 sources)Phosphate BinderStart: 25-60-4793pfwf 1 tablet by mouth once at mealtimeStart: 45-79-4826ekiq 400 mg by mouth once dailySevelamer Hcl Active 400 MG Oral Daily September 30, 2017 6:35pmStart: 09-30-2017 End: 63-73-5748Ryqzpxuxk Hcl (Renagel) 800 mg Tablet Discontinued 400 MG PO Daily September 30, 2017 12:00am August 19, 2020 11:03amtake 1 tablet by mouth in the morningsevelamer (RENAGEL) 400 mg tablet Take 1 tablet (400 mg total) by mouth in the morning. Active5 ml sodium ferric gluconate complex 12.5 mg/ml injection (2 sources)Start: 11-75-0885arvqijecdnprt acetonide 1 mg/ml topical cream (16 sources)CorticosteroidStart: 44-38-6720Frqxfynqkpgtf Acetonide Active 1 APPLIC TOPICAL Twice daily December 31, 2018 3:14pmStart: 12-31-2018 End: 36-80-4482Hnghuejeicdss Acetonide 0.1 % Cream Discontinued 1 APPLIC TOPICAL Twice daily December 31, 2018 12:00am December 29, 2024 12:20pm Completed/Discontinued Medications MedicationDrug Class(es)DatesSig (Normalized)Sig (Original)acetaminophen 325 mg / HYDROcodone bitartrate 5 mg oral tablet (20 sources)Opioid AgonistStart: 12-31-2018 End: 24-19-7980zpec 1 tablet by mouth every six hours as needed for pain Hydrocodone-Acetaminophen 5-325 mg tablet Discontinued 1 TAB PO Q6H as needed for Pain December 31, 2018 12:00am January 05, 2019 2:16pmStart: 09-30-2017 End: 48-07-9314mfhp 1 tablet by mouth every four hours as needed for pain Hydrocodone-Acetaminophen 5-325 mg tablet Discontinued 5 MG PO Q4H as needed for Pain September 30, 2017 12:00am November 12, 2017 11:43amacetaminophen 325 mg / oxyCODONE hydrochloride 5 mg oral tablet (10 sources)Opioid AgonistStart: 11-12-2017 End: 95-52-4387qpyv 1 tablet by mouth every six hours [...] oral tablet (18 sources)Penicillin-class AntibacterialStart: 11-12-2017 End: 02-36-8427ngks 1 tablet by mouth every eight hoursAmoxicillin-Pot Clavulanate (Augmentin) 500-125 mg tablet Discontinued 1 TAB PO Q8H 42 November 12, 2017 12:00am November 25, 2017 12:00am November 26, 2017 12:01amStart: 10-04-2017 End: 70-70-8355jury 1 tablet by mouth twice dailyAmoxicillin-Pot Clavulanate (Augmentin) 500-125 mg tablet Discontinued 1 TAB PO Twice daily 2017 12:00am November 08, 2017 1:24pmapremilast 30 mg oral tablet (9 sources)Start: 08-19-2020 End: 83-11-0612iyvv 1 tablet by mouth once dailyApremilast (Otezla) 30 mg Tablet Discontinued 30 MG PO Daily August 19, 2020 12:00am December 29, 2024 12:20pmatorvastatin 40 mg oral tablet (8 sources)HMG-CoA Reductase InhibitorStart: 08-23-2020 End: 78-48-8433xact 1 tablet by mouth once daily in the eveningAtorvastatin 40 mg Tablet Discontinued 40 MG PO Every evening August 23, 2020 12:00am January 15, 2025 12:23pmB Complex And C 20-Folic Acid 1 mg capsule (4 sources)Start: 09-30-2017 End: 54-59-1112mxxp 1 capsule by mouth once dailyB Complex And C 20-Folic Acid 1 mg capsule Discontinued 1 CAP PO Daily September 30, 2017 12:00am November 08, 2017 1:25pmB Complex With C 20-Folic Acid (4 sources)Start: 09-30-2017 End: 79-72-4466nwva 1 capsule by mouth once dailyB Complex With C 20-Folic Acid Discontinued 1 CAP PO Daily September 30, 2017 6:45pm November 08, 2017 1:25pmB Complex With C 20-Folic Acid 1 mg capsule (1 source)Start: 09-30-2017 End: 09-06-8518sdrf 1 capsule by mouth once dailyB Complex With C 20-Folic Acid 1 mg capsule Discontinued 1 CAP PO Daily September 30, 2017 12:00am 2017 1:25pmbumetanide 2 mg oral tablet (9 sources)Loop DiureticStart: 09-30-2017 End: 69-20-5970ilrv 1 tablet by mouth once dailyBumetanide 2 mg Tablet Discontinued 2 MG PO Daily September 30, 2017 12:00am December 31, 2018 3:05pm calcium acetate 667 mg oral capsule (16 sources)Start: 09-30-2017 End: 93-50-9457yxov 1 capsule by mouth three times daily at mealtimeCalcium Acetate(Phosphat Bind) 667 mg Capsule Discontinued 667 MG PO THREE TIMES DAILY WITH MEALS September 30, 2017 12:00am August 25, 2020 12:34pmcholecalciferol 0.125 mg oral tablet (9 sources)Vitamin DStart: 08-18-2020 End: 78-95-2606qrre 1 tablet by mouth once dailyCholecalciferol (Vitamin D3) (Vitamin D3) 125 mcg (5,000 unit) Tablet Discontinued 125 MCG PO DailyAugust 18, 2020 12:00am August 25, 2020 12:34pmdoxycycline hyclate 100 mg oral capsule (9 sources)Tetracycline-class DrugStart: 11-12-2017 End: 64-83-6905ehyz 1 capsule by mouth twice dailyDoxycycline Hyclate 100 mg capsule Discontinued 100 MG PO Twice daily November 12, 2017 12:00amAugu2017 12:00am December 03, 2017 12:01amempagliflozin 25 mg oral tablet (3 sources)Sodium-Glucose Cotransporter 2 InhibitorStart: 12-23-2024 End: 16-75-4470edvt 1 tablet by mouth once dailyEmpagliflozin (Jardiance) 25 mg tablet Discontinued 25 MG PO Daily December 23, 2024 12:00am January 15, 2025 12:23pm On Hold: Plan to hold permanently given HD status per nephrology esomeprazole 40 mg delayed release oral capsule (9 sources)Proton Pump InhibitorStart: 08-18-2020 End: 70-81-8087gtco 1 capsule by mouth once dailyEsomeprazole Magnesium 40 mg capsule,delayed release(DR/EC) Discontinued 40 MG PO Daily July 12:00am December 29, 2024 12:20pmferrous sulfate 325 mg oral tablet (8 sources)Start: 08-25-2020 End: 92-12-7848Nhmnfjx Sulfate 325 mg (65 mg iron) tablet Discontinued 325 MG PO Every 48 hours August 25, 2020 12:00am December 29, 2024 12:20pm furosemide 40 mg oral tablet (10 sources)Loop DiureticStart: 08-25-2020 End: 64-22-8637wagm 1 tablet by mouth twice dailyFurosemide 40 mg Tablet Discontinued 40 MG PO BID@0800,1600 60 August 25, 2020 12:00am December 29, 2024 12:20pmStart: 60-73-0374ruab 40 mg by mouth once dailyFurosemide Active 40 MG Oral Daily January 05, 2019 2:10pmgabapentin 800 mg oral tablet (18 sources)Anti-epileptic AgentStart: 08-18-2020 End: 99-80-1506dsai 1 tablet by mouth twice dailyGabapentin 800 mg tablet Discontinued 800 MG PO Twice daily August 18, 2020 12:00am August 25, 2020 12:34pmStart: 09-30-2017 End: 41-03-8460pnvn 1 tablet by mouth twice dailyGabapentin 600 mg tablet Discontinued 600 MG PO Twice daily September 30, 2017 12:00am December 31, 2018 3:10pmhydrALAZINE hydrochloride 25 mg oral tablet (12 sources)Arteriolar VasodilatorStart: 12-29-2024 End: 58-03-0474ivhj 1 tablet by mouth three times dailyHydralazine 25 mg Tablet Discontinued 25 MG PO Three times daily 90 December 29, 2024 12:00am S bibitemaddie 2024 12:23pmStart: 08-18-2020 End: 48-71-4859recl 1 tablet by mouth three times dailyHydralazine 100 mg tablet Discontinued 100 MG PO Three times daily August 18, 2020 12:00am December 29, 2024 12:20pm3 ml insulin degludec 100 unt/ml pen injector (20 sources)Insulin AnalogStart: 11-08-2017 End: 32-09-6707Nntmkvb Degludec (Tresiba Flextouch U-100) 100 unit/mL (3 mL) insulin pen Discontinued 200 UNIT SUBCUT Daily November 08, 2017 1:37pm December 29, 2024 12:20pmStart: 37-51-0873rbhkoy 100 [IU] by subcutaneous injection once dailyInsulin Degludec Active 100 UNIT Subcutaneous Daily November 08, 2017 1:37pm Start: 10-04-2017 End: 71-69-7825Cvjdnrh Degludec (Tresiba Flextouch U-100 Insulin) 100 unit/mL (3 mL) insulin pen Discontinued 70 UNIT SUBCUT Daily 3 October 04, 2017 12:00am November 08, 2017 1:37pmStart: 09-30-2017 End: 71-91-2656oyqdsk 200 [IU] by subcutaneous injection once dailyInsulin Degludec (Tresiba Flextouch U-200) 200 unit/mL (3 mL) insulin pen Discontinued 200 UNIT SUBCUT Daily September 30, 2017 12:00am October 04, 2017 12:34pminsulin degludec (TRESIBA FLEXTOUCH U-200) 200 unit/mL (3 mL) insulin pen Inject 100 Units under the skin in the morning. Active3 ml insulin detemir 100 unt/ml pen injector (3 sources)Insulin AnalogStart: 12-23-2024 End: 33-54-7063chpvyx 30 [IU] by subcutaneous injection at bedtimeInsulin Detemir U-100 100 unit/mL (3 mL) insulin pen Discontinued 30 UNIT SUBCUT Bedtime December 23, 2024 12:00am December 29, 2024 12:20pm3 ml insulin glargine 100 unt/ml / lixisenatide 0.033 mg/ml pen injector (20 sources)Insulin AnalogStart: 12-31-2018 End: 65-33-6681Gcqmubl Glargine-Lixisenatide (Soliqua 100/33) 100 unit-33 mcg/mL Insulin Pen Discontinued 60 UNITSSUBCUT Daily December 31, 2018 12:00am December 29, 2024 12:20pmStart: 09-30-2017 End: 41-49-0573Emlcemt Glargine-Lixisenatide (Soliqua 100/33) 100 unit-33 mcg/mL Insulin Pen Discontinued 70 UNIT SUBCUT Daily September 30, 2017 12:00am October 04, 2017 1:07pminject 60 [IU] by subcutaneous injection twice dailySoliqua 100/33 60 Units Subcutaneous TWICE A DAY Active3 ml insulin lispro 100 unt/ml pen injector (20 sources)Insulin AnalogStart: 11-08-2017 End: 43-16-1395Boohyno Lispro (Humalog Kwikpen Insulin) 100 unit/mL insulin pen Discontinued 50 UNIT SUBCUT THREE TIMES DAILY WITH MEALS November 08, 2017 1:37pm December 31, 2018 3:11pmStart: 10-04-2017 End: 63-60-6387Ilvjwku Lispro (Humalog Kwikpen Insulin) 100 unit/mL Insulin Pen Discontinued 40 UNIT SUBCUT THREE TIMES DAILY WITH MEALS 3 October 04, 2017 1:10pm November 08, 2017 1:37pmStart: 09-30-2017 End: 78-77-9194Nttxwmt Lispro (Humalog Kwikpen Insulin) 100 unit/mL Insulin Pen Discontinued 50 UNIT SUBCUT THREE TIMES DAILY WITH MEALS September 30, 2017 12:00am October 04, 2017 1:11pmHumaLOG KwikPen 200 UNIT/ML as directed Subcutaneous SLIDING SCALE Activelinaclotide 0.145 mg oral capsule (9 sources)Guanylate Cyclase-C AgonistStart: 09-30-2017 End: 73-35-1845jjwt 1 capsule by mouth once dailyLinaclotide 145 mcg capsule Discontinued 145 MCG PO Daily September 30, 2017 12:00am November 08, 2017 1:31pm losartan potassium 100 mg oral tablet (15 sources)Angiotensin 2 Receptor BlockerStart: 12-31-2018 End: 33-71-3584ortb 1 tablet by mouth once dailyLosartan 100 mg Tablet Discontinued 100 MG PO Daily December 31, 2018 12:00am January 05, 2019 2:16pmtake 2 tablets by mouth in the morninglosartan (COZAAR) 50 mg tablet Take 2 tablets (100 mg total) by mouth in the morning. Activemagnesium oxide 400 mg oral tablet (9 sources)Start: 08-18-2020 End: 04-53-7419agvp 1 tablet by mouth once dailyMagnesium Oxide 400 mg magnesium Tablet Discontinued 400 MG PO Daily August 18, 2020 12:00am December 29, 2024 12:20pmmethotrexate 2.5 mg oral tablet (16 sources)Folate Analog Metabolic InhibitorStart: 12-31-2018 End: 32-11-4075ydpg 10 mg by mouth every weekMethotrexate Sodium Discontinued 10 MG PO every week December 31, 2018 3:14pm August 19, 2020 11:01am Saturday Start: 12-31-2018 End: 03-44-1867bcqs 4 tablets by mouth every weekMethotrexate Sodium 2.5 mg Tablet Discontinued 10 MG PO every week December 31, 2018 12:00am August 19, 2020 11:01am Saturdaytake 1 tablet by mouth every weekmethotrexate 2.5 mg chemo tablet Take 1 tablet by mouth once a week ActivemethylPREDNISolone 4 mg oral tablet (8 sources)CorticosteroidStart: 08-23-2020 End: 31-56-8099iqfg 1 tablet by mouth onceMethylprednisolone (Medrol (Sukh)) 4 mg tablets,dose pack Discontinued 0 PO .COMPLEX August 23, 2020 12:00am December 29, 2024 12:20pm orally per package directionsmetOLazone 10 mg oral tablet (9 sources)Thiazide-like DiureticStart: 09-30-2017 End: 15-95-7135zzjd 1 tablet by mouth twice dailyMetolazone 10 mg tablet Discontinued 10 MG PO Twice daily September 30, 2017 12:00am December 31, 2018 3:12pmOXcarbazepine 300 mg oral tablet (17 sources)Anti-epileptic AgentStart: 09-30-2017 End: 11-21-7424wyhj 1 tablet by mouth at bedtimeOxcarbazepine 300 mg tablet Discontinued 300 MG PO Bedtime September 30, 2017 12:00am December 29, 2024 12:20pmpotassium chloride 10 meq extended release oral tablet (17 sources)Start: 08-25-2020 End: 22-87-5202Mmovzgkxp Chloride (Klor-Con 10) 10 mEq Tablet Extended Release Discontinued 10 MEQ PO Daily August 25, 2020 12:00am December 29, 2024 12:20pmStart: 09-30-2017 End: 02-50-7306Lsqtyuuev Chloride 20 mEq Tablet Extended Release Discontinued 20 MEQ PO As Directed September 30, 201712:00am December 31, 2018 3:13pmsodium bicarbonate 325 mg oral tablet (19 sources)Start: 12-23-2024 End: 76-70-8592twnc 1 tablet by mouth three times dailySodium Bicarbonate 325 mg tablet Discontinued 325 MG PO Three times daily December 23, 2024 12:00am January 15, 2025 12:24pmStart: 28-25-1178mqvq 325 mg by mouth once daily Sodium Bicarbonate Active 325 MG Oral Daily November 08, 2017 1:34pmStart: 11-08-2017 End: 53-20-8440anot 1 tablet by mouth twice dailySodium Bicarbonate 325 mg Tablet Discontinued 325 MG PO Twice daily November 08, 2017 12:00am August 25, 2020 12:34pmsulfamethoxazole 800 mg / trimethoprim 160 mg oral tablet (20 sources)Dihydrofolate Reductase Inhibitor Antibacterial, Sulfonamide AntimicrobialStart: 12-31-2018 End: 89-99-6187lcxu 1 tablet by mouth twice dailySulfamethoxazole-Trimethoprim (Bactrim Ds) 800-160 mg Tablet Discontinued 1 TAB PO Twice daily December 31, 2018 12:00am January 05, 2019 2:16pmStart: 09-30-2017 End: 75-92-8171ucsx 1 tablet by mouth twice dailySulfamethoxazole-Trimethoprim 800-160 mg tablet Discontinued 1 TAB PO Twice daily September 30, 2017 12:00am October 04, 2017 12:33pmtamsulosin hydrochloride 0.4 mg oral capsule (20 sources)alpha-Adrenergic BlockerStart: 12-31-2018 End: 23-09-3035evie 1 capsule by mouth once dailyTamsulosin (Flomax) 0.4 mg Capsule Discontinued 0.4 MG PO Daily December 31, 2018 12:00am December 29, 2024 12:20pmStart: 09-30-2017 End: 33-55-5010dhgm 1 capsule by mouth once dailyTamsulosin (Flomax) 0.4 mg Capsule,Extended Release 24hr Discontinued 0.4 MG PO Daily September 30, 2017 12:00am November 08, 2017 1:33pmtraZODone hydrochloride 50 mg oral tablet (17 sources)Serotonin Reuptake InhibitorStart: 09-30-2017 End: 97-33-0171kifd 1 tablet by mouth at bedtimeTrazodone 50 mg tablet Discontinued 50 MG PO Bedtime September 30, 2017 12:00am December 29, 2024 12:20pm varenicline 1 mg oral tablet (15 sources)Partial Cholinergic Nicotinic AgonistStart: 09-30-2017 End: 87-58-4683pieu 1 tablet by mouth once dailyVarenicline Tartrate 1 mg tablet Discontinued 1 MG PO Daily September 30, 2017 12:00am January 05, 2019 2:16pm vorapaxar 2.08 mg oral tablet (9 sources)Protease-activated Receptor-1 AntagonistStart: 09-30-2017 End: 57-89-4077dwoc 1 tablet by mouth once dailyVorapaxar 2.08 mg Tablet Discontinued 2.08 MG PO Daily September 30, 2017 12:00am November 08, 2017 1:36pm Problems Active Problems Problem ClassificationProblemDateDocumented DateEpisodic/ChronicAcute and unspecified renal failure (13 sources)Acute kidney failure, unspecified; Translations: [Acute kidney failure, unspecified]Onset: 69-30-8485CykxoupdKgbibvyiu infection; unspecified site (20 sources)Methicillin resistant Staphylococcus aureus infection; Translations: [Streptococcus agalactiae infection]10-36-4321CbyywctbTogfdid kidney disease (20 sources)Chronic kidney disease stage 4; Translations: [Chronic kidney disease, stage 4 (severe)]Onset: 03-21-2021 Resolved: 05-81-4711JbjrayxCebkkzn kidney disease (2 sources)Chronic kidney disease; Translations: [Chronic kidney disease, stage 3 unspecified]Onset: 44-50-7391Ocdnqww obstructive pulmonary disease and bronchiectasis (20 sources)Chronic obstructive lung disease; Translations: [Chronic obstructive pulmonary disease, unspecified]Onset: 39-49-3227RriltdzHlrwdxu ulcer of skin (17 sources)Non-pressure chronic ulcer of left heel and midfoot with fat layer exposed; Translations: [Non-pressure chronic ulcer of other part of left foot with unspecified severity]Onset: 31-30-0430KglfzakFqqctfospilpg of surgical procedures or medical care (4 sources)Hemodialysis-associated hypotension; Translations: [Hypotension of hemodialysis]Onset: 279749-52-6559SjgaziqMrfshjlntrxxc of surgical procedures or medical care (6 sources)Other complications of procedures, not elsewhere classified, initial encounter; Translations: [Other specified complications of surgical and medical care, not elsewhere classified, initial encounter]Onset: 86-21-7132Cqakhlkj Congestive heart failure; nonhypertensive (1 source)Unspecified combined systolic (congestive) and diastolic (congestive) heart failure; Translations: [UNS COMB SYSTOLIC AND DIASTOLIC CHF]Onset: 75-82-8509UbqrdaaDmcimxoe injury or internal injury (5 sources)Injury of kidney; Translations: [Acute kidney failure, unspecified] EpisodicDeficiency and other anemia (1 source)Anemia in chronic kidney disease; Translations: [Anemia in chronic kidney disease]ChronicDeficiency and other anemia (2 sources)Anemia in chronic kidney disease; Translations: [Anemia in chronic kidney disease]Onset: 03-21-2021 Resolved: 99-95-8708JkxdahsMtlvpotkci and other anemia (1 source)Anemia, unspecified; Translations: [ANEMIA UNSPECIFIED]Onset: 71-64-5458HdvobfztFxywakfq mellitus with complications (20 sources)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; Translations: [Type 2 diabetes mellitus with diabetic 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]Onset: 03-21-2021 Resolved: 81-71-1161EgsthrqQzuijlbm mellitus without complication (19 sources)Type 2 diabetes mellitus; Translations: [Diabetes mellitus]Onset: 904369-27-5760MpvsnjgGpxhnujv mellitus without complication (2 sources)Hyperglycemia; Translations: [Hyperglycemia, unspecified]Episodic Disorders of lipid metabolism (10 sources)Hyperlipidemia; Translations: [Hyperlipidemia, unspecified]Onset: 03-21-2021 Resolved: 07-89-9206FhwzvzuQsalosmrvc disorders (20 sources)Gastroesophageal reflux disease; Translations: [Gastro-esophageal reflux disease without esophagitis]Onset: 40-98-9791PtsuzayNqcxuzuhc hypertension (19 sources)Hypertensive disorder; Translations: [Essential (primary) hypertension]Onset: 19-76-0480TxlqggkNqfqy and electrolyte disorders (20 sources)Metabolic acidosis; Translations: [Acidosis]Onset: 12-23-2024 EpisodicFracture of neck of femur (hip) (20 sources)Fracture of bone of hip region; Translations: [Fracture of unspecified part of neck of unspecified femur, initial encounter for closed fracture]Onset: 320999-43-9943XlyzgtqdQhpogmmw of upper limb (10 sources)Fracture of distal end of radius; Translations: [Unspecified fracture of the lower end of unspecified radius, initial encounter for closed fracture]Onset: 560257-35-5724SvowsootUffjypwa (7 sources)Critical lower limb ischemia ; Translations: [Atherosclerosis of [place] arteries of extremities with gangrene, left leg]Onset: 02-27-2024 17-95-1999KmfwqyiBwtqelliauvwn symptoms and ill-defined conditions (2 sources)Dysuria; Translations: [Dysuria]Onset: 82-51-4298JjxnsuzkCmnickujwbrj with complications and secondary hypertension (20 sources)Chronic kidney disease due to hypertension; Translations: [Hypertensive chronic kidney disease withstage 1 through stage 4 chronic kidney disease, or unspecified chronic kidney disease]Onset: 03-21-2021 Resolved: 79-26-2881SbkhccmVuymcoizf arthritis and osteomyelitis (except that caused by tuberculosis or sexually transmitted disease) (2 sources)Other chronic osteomyelitis, left ankle and foot; Translations: [Other acute osteomyelitis, left tibia and fibula]Onset: 78-40-6364MgznokjBynw disorders (1 source)Major depressive disorder, single episode, unspecified; Translations: [KILEY DEPRESS D/O SINGLE EPIS UNS]Onset: 66-44-2165QycwufeDgxmen and vomiting (1 source)Nausea; Translations: [Nausea]39-90-6545GzffxaswFbcqjnrqehk deficiencies (1 source)Vitamin D deficiency, unspecified; Translations: [Vitamin D deficiency, unspecified]Onset: 77-55-0780HlysbtxLodhi acquired deformities (1 source)Contracture, left ankle; Translations: [CONTRACTURE LEFT ANKLE]Onset: 48-10-9471PhsnqfrZslsa aftercare (2 sources)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; Translations: [REGISTERED NURSE CARDIAC TELEMETRY CURRENT USE OF INSULIN]Onset: 24-14-1801MnxmyzbjDwhad bone disease and musculoskeletal deformities (1 source)Acquired absence of left foot; Translations: [ACQUIRED ABSENCE OF LEFT FOOT]Onset: 56-22-4056QhctfhsVnenz bone disease and musculoskeletal deformities (9 sources)Amputated foot; Translations: [Acquired absence of left foot]Onset: 398185-11-0639OslgvthRwpop bone disease and musculoskeletal deformities (9 sources)Amputated foot; Translations: [Acquired absence of right foot]Onset: 724541-85-4914FtotazfDnvda bone disease and musculoskeletal deformities (10 sources)History of amputation of right foot; Translations: [Acquired absence of other right toe(s)]10-39-3139EhhafofxOtelc bone disease and musculoskeletal deformities (4 sources)Acquired absence of other right toe(s); Translations: [Other toe(s) amputation status]EpisodicOther bone disease and musculoskeletal deformities (1 source)Disorder of bone, unspecified; Translations: [DISORDER OF BONE UNSPECIFIED]Onset: 78-14-5252YndgoykdAlfzh connective tissue disease (5 sources)Pain in left foot; Translations: [PAIN IN LEFT FOOT]Onset: 06-05-2022 EpisodicOther diseases of kidney and ureters (1 source)Hyperparathyroidism due to renal insufficiency; Translations: [Secondary hyperparathyroidism of renal origin]ChronicOther diseases of kidney and ureters (1 source)Secondary hyperparathyroidism of renal originOnset: 03-21-2021 Resolved: 38-45-7529EodrqypSrdai hereditary and degenerative nervous system conditions (1 source)Other idiopathic peripheral autonomic neuropathy; Translations: [OTH IDIO PERIPH AUTONOM NEUROPATHY]Onset: 16-93-9709VtzmmssWjcfq hereditary and degenerative nervous system conditions (6 sources)Idiopathic peripheral autonomic neuropathy; Translations: [Other idiopathic peripheral autonomic neuropathy]Onset: 304939-62-8146Zreapbx Other inflammatory condition of skin (19 sources)Psoriasis; Translations: [Psoriasis, unspecified]Onset: 01-24-2025 32-41-9116DxbkflmUbymp inflammatory condition of skin (6 sources)Psoriasis, unspecified; Translations: [Other psoriasis]Onset: 58-43-4421NqjbmvsUjvdt inflammatory condition of skin (1 source)Other psoriasis; Translations: [OTHER PSORIASIS]Onset: 06-27-2022 ChronicOther liver diseases (1 source)Liver disease, unspecified; Translations: [LIVER DISEASE UNSPECIFIED] Onset: 54-57-7628XpczulwKgjtf lower respiratory disease (8 sources)History of pleural effusion; Translations: [Personal history of other diseases of the respiratory system]30-01-4747OudpfcavAtgsv lower respiratory disease (8 sources)Pleuritic pain; Translations: [Pleurodynia]83-49-5107AcdjvmkjUmzqt lower respiratory disease (3 sources)Personal history of other diseases of the respiratory system; Translations: [Personal history of other diseases of respiratory system]Episodic Other lower respiratory disease (3 sources)Pleurodynia; Translations: [Painful respiration]EpisodicOther nutritional; endocrine; and metabolic disorders (10 sources)Morbid obesity; Translations: [Morbid (severe) obesity due to excess calories]82-98-9190SqvmhvuEsmad nutritional; endocrine; and metabolic disorders (5 sources)Morbid (severe) obesity due to excess calories; Translations: [Morbid obesity]Onset: 03-46-3614RotrpcjPzkv-; endo-; and myocarditis; cardiomyopathy (except that caused by tuberculosis or sexually transmitted disease) (11 sources)Pericarditis; Translations: [Disease of pericardium, unspecified] EpisodicPeripheral and visceral atherosclerosis (20 sources)Peripheral vascular disease; Translations: [Peripheral vascular disease, unspecified]Onset: 72-54-1055NktymuqEneeuxci; pneumothorax; pulmonary collapse (20 sources)Thickening of pleura; Translations: [Fibrothorax]EpisodicPneumonia (except that caused by tuberculosis or sexually transmitted disease) (2 sources)Pneumonia; Translations: [Pneumonia, unspecified organism]Episodic Residual codes; unclassified (1 source)Postprocedural state finding; Translations: [Other specified postprocedural states]97-63-0443CkafxdhfRcoeoicglbk; intervertebral disc disorders; other back problems (12 sources)Spondylosis without myelopathy or radiculopathy, lumbar region; Translations: [Other intervertebraldisc degeneration, lumbar region]Onset: 40-15-0290ErlaufaYucnucsdr-related disorders (1 source)Smoker; Translations: [Nicotine dependence, unspecified, uncomplicated]ChronicUnclassified (1 source)History of amputation of right foot; Translations: [History of partial amputation of toe of right foot]Unclassified (1 source)CHRN KIDNEY DISEASE STG 3 UNSP; Translations: [CHRN KIDNEY DISEASE STG 3 UNSP]Onset: 12-38-7951Xwtaltnbfvra (1 source)CONTACT W/AND (SUSP) EXPOS COVID-19; Translations: [CONTACT W/AND (SUSP) EXPOS COVID-19]Onset: 06-55-5991Qsbsmctboddc (6 sources)Please consult to manage Hemodialysis.Unclassified (6 [...] Translations: [Valgus deformity, not elsewhere classified,left ankle]Onset: 47-72-7420Vmvnkkyc Deficiency and other anemia (1 source)Iron deficiency anemia, unspecified; Translations: [IRON DEFICIENCY ANEMIA UNSPECIFIED]Onset: 78-23-7843FenahrefCzcqy aftercare (7 sources)Other joint terminal attack controller (current) drug therapy; Translations: [OTH SENIOR LIVING CURRENT DRUG THERAPY]Onset: 03-58-8667NyybudodPadvf circulatory disease (1 source)Critical lower limb zygcssnv07-37-9853GnsvykhbVezfn connective tissue disease (1 source)Other muscle spasm; Translations: [OTHER MUSCLE SPASM]Onset: 35-57-6996PoanitriGxnpm diseases of veins and lymphatics (1 source)Venous insufficiency (chronic) (peripheral); Translations: [VENOUS INSUFF CHRONIC PERIPHERAL]Onset: 83-10-8673FinwtkzzVceiv injuries and conditions due to external causes (1 source)Other injury of unspecified body region, sequela; Translations: [OTHER INJURY UNS BODY REGION SEQ]Onset: 88-43-2816RbxdbyhxGwltz lower respiratory disease (5 sources)Shortness of breath; Translations: [SHORTNESS OF BREATH]Onset: 72-68-5818UrbrjbncWmwhk lower respiratory disease (1 source)Other forms of dyspnea; Translations: [Other forms of dyspnea]Onset: 34-63-4406KjjdksteLdcpt screening for suspected conditions (not mental disorders or infectious disease) (1 source)Encounter for screening for malignant neoplasm of prostate; Translations: [Encounter for screening for malignant neoplasm of prostate]Onset: 12-65-4576BkxtxcxmZbxbe skin disorders (1 source)Nail dystrophy; Translations: [NAIL DYSTROPHY]Onset: 06-27-2022 EpisodicResidual codes; unclassified (1 source)Localized edema; Translations: [LOCALIZED EDEMA]Onset: 06-05-2022 EpisodicResidual codes; unclassified (1 source)Acquired absence of other specified parts of digestive tract; Translations: [ACQ ABSENCE OTH PART DIGESTV TRACT]Onset: 75-77-9075Utojqeoz Screening and history of mental health and substance abuse codes (1 source)Personal history of nicotine dependence; Translations: [PERSONAL HISTORY OF NICOTINE DEPEND]Onset: 19-46-1873XthwvczhIuqr and subcutaneous tissue infections (14 sources)Abscess of face; Translations: [Abscess of neck]Onset: 09-29-2017 41-94-8870WsjbbupaAganfyvturl; intervertebral disc disorders; other back problems (4 sources)Muscle spasm of back; Translations: [MUSCLE SPASM OF BACK]Onset: 62-41-0429Oatpsqvd Results Test NameValueInterpretationReference RangeFacilityGlucose Poct Glucometerson 60-67-4786Fclpmlm2Ooq9: Cleaned MeterNoFrye Regional Medical Center Physician GroupComment on above:Result Comment: PERFORMED BY: [address] [place] [address] PATHOLOGIST FIRE APPARATUS ENGINEER CARLOS BIRMINGHAM M.D.Performed By: #### HEPACUTE, HBCAB, HBSAB #### [facility] ,Glucose [Mass/Vol]85 mg/dLHCA Florida Starke Emergency Physician GroupComment on above: Result Comment: Random Glucose Reference Range is dependent on time and content of last meal. Glucose of more than 200 mg/dL in a nonstressed, ambulatory subject supports the diagnosis of Diabetes Mellitus.Performed By: #### HEPACUTE, HBCAB, HBSAB #### [facility] ,Glucose [Mass/Vol]85 mg/dLNoFrye Regional Medical Center Physician GroupComment on above: Result Comment: Random Glucose Reference Range is dependent on time and content of last meal. Glucose of more than 200 mg/dL in a nonstressed, ambulatory subject supports the diagnosis of Diabetes Mellitus. PERFORMED BY: [place] [id number] PATHOLOGIST FIRE APPARATUS ENGINEER CARLOS BIRMINGHAM M.D.Performed By: #### HEPACUTE, HBCAB, HBSAB #### [facility] ,Glucose Poct Glucometerson 21-04-0216Jpdarmx [Mass/Vol]296 mg/dLNoFrye Regional Medical Center Physician GroupComment on above:Result Comment: Random Glucose Reference Range is dependent on time and content of last meal. Glucose of more than 200 mg/dL in a nonstressed, ambulatory subject supports the diagnosis of Diabetes Mellitus. PERFORMED BY: [place] [id number] PATHOLOGIST FIRE APPARATUS ENGINEER CARLOS BIRMINGHAM M.D.Performed By: #### HEPACUTE, HBCAB, HBSAB #### [facility] ,Glucose [Mass/Vol]131 mg/dLHCA Florida Starke Emergency Physician GroupComment on above: Result Comment: Random Glucose Reference Range is dependent on time and content of last meal. Glucose of more than 200 mg/dL in a nonstressed, ambulatory subject supports the diagnosis of Diabetes Mellitus. PERFORMED BY: [place] [id number] PATHOLOGIST FIRE APPARATUS ENGINEER CARLOS BIRMINGHAM M.D.Performed By: #### HEPACUTE, HBCAB, HBSAB #### [facility] ,Glucose [Mass/Vol]116 mg/dLHCA Florida Starke Emergency Physician GroupComment on above: Result Comment: Random Glucose Reference Range is dependent on time and content of last meal. Glucose of more than 200 mg/dL in a nonstressed, ambulatory subject supports the diagnosis of Diabetes Mellitus. PERFORMED BY: [place] [id number] PATHOLOGIST FIRE APPARATUS ENGINEER CARLOS BIRMINGHAM M.D.Performed By: #### GLULS #### Point of Care testing ,Glucose [Mass/Vol]118 mg/dLHCA Florida Starke Emergency Physician GroupComment on above: Result Comment: Random Glucose Reference Range is dependent on time and content of last meal. Glucose of more than 200 mg/dL in a nonstressed, ambulatory subject supports the diagnosis of Diabetes Mellitus. PERFORMED BY: [place] [id number] PATHOLOGIST FIRE APPARATUS ENGINEER CARLOS BIRMINGHAM M.D.Performed By: #### GLULS #### Point of Care testing ,Glucose Poct Glucometerson 03-06-4590Kjnzcfy [Mass/Vol]75 mg/dLNoFrye Regional Medical Center Physician GroupComment on above:Result Comment: Random Glucose Reference Range is dependent on time and content of last meal. Glucose of more than 200 mg/dL in a nonstressed, ambulatory subject supports the diagnosis of Diabetes Mellitus. PERFORMED BY: [place] [id number] PATHOLOGIST FIRE APPARATUS ENGINEER CARLOS BIRMINGHAM M.D.Performed By: #### GLULS #### Point of Care testing ,Glucose [Mass/Vol]89 mg/dLNoFrye Regional Medical Center Physician GroupComment on above: Result Comment: Random Glucose Reference Range is dependent on time and content of last meal. Glucose of more than 200 mg/dL in a nonstressed, ambulatory subject supports the diagnosis of Diabetes Mellitus. PERFORMED BY: [place] [id number] PATHOLOGIST FIRE APPARATUS ENGINEER CARLOS BIRMINGHAM M.D.Performed By: #### HEPACUTE, HBCAB, HBSAB #### [facility] ,Glucose [Mass/Vol]114 mg/dLHCA Florida Starke Emergency Physician GroupComment on above: Result Comment: Random Glucose Reference Range is dependent on time and content of last meal. Glucose of more than 200 mg/dL in a nonstressed, ambulatory subject supports the diagnosis of Diabetes Mellitus. PERFORMED BY: [address] [id number] PATHOLOGIST FIRE APPARATUS ENGINEER CARLOS BIRMINGHAM M.D.Performed By: #### GLULS #### Point of Care testing ,Glucose [Mass/Vol]99 mg/dLNoFrye Regional Medical Center Physician [facility] HospitalComment on above: Result Comment: Random Glucose Reference Range is dependent on time and content of last meal. Glucose of more than 200 mg/dL in a nonstressed, ambulatory subject supports the diagnosis of Diabetes Mellitus. PERFORMED BY: [place] [id number] PATHOLOGIST FIRE APPARATUS ENGINEER CARLOS BIRMINGHAM M.D.Performed By: #### GLULS #### Point of Care testing ,Glucose [Mass/Vol]80 mg/dLHCA Florida Starke Emergency Physician GroupComment on above: Result Comment: Random Glucose Reference Range is dependent on time and content of last meal. Glucose of more than 200 mg/dL in a nonstressed, ambulatory subject supports the diagnosis of Diabetes Mellitus. PERFORMED BY: [address] [address] PATHOLOGIST FIRE APPARATUS ENGINEER CARLOS BIRMINGHAM M.D.Performed By: #### HEPACUTE, HBCAB, HBSAB #### [facility] ,Glucose [Mass/Vol]66 mg/dLNoFrye Regional Medical Center Physician GroupComment on above: Result Comment: Random Glucose Reference Range is dependent on time and content of last meal. Glucose of more than 200 mg/dL in a nonstressed, ambulatory subject supports the diagnosis of Diabetes Mellitus. PERFORMED BY: [address] [address] PATHOLOGIST FIRE APPARATUS ENGINEER CARLOS BIRMINGHAM M.D.Performed By: #### GLULS #### Point of Care testing ,Renal Function Panelon 08-67-8583Pmcnvgx [Mass/Vol]3.3 g/dLLow3.5-5.7[facility] Physician GroupComment on above:Performed By: #### GLULS #### Point of Care testing ,Anion gap [Moles/Vol]13.4 mmol/LNormal6.0-15.0[facility] Comment on above:Performed By: #### GLULS #### Point of Care testing ,Calcium [Mass/Vol]10.1 mg/dLNormal8.6-10.3[facility] Physician GroupComment on above:Performed By: #### GLULS #### Point of Care testing ,Chloride [Moles/Vol]98 mmol/JEbvbft14-811Wbz [facility] Physician GroupComment on above:Performed By: #### GLULS #### Point of Care testing ,CO2 [Moles/Vol]26.9 mmol/EPhpoxw31.0-31.0[facility] Physician GroupComment on above:Performed By: #### GLULS #### Point of Care testing ,Creatinine [Mass/Vol]5.69 mg/dLHigh0.70-1.30The [facility] Comment on above:Performed By: #### GLULS #### Point of Care testing ,Creatinine Clr Calc Zmrjeslm95.17NormalThe [facility] Physician GroupComment on above:Result Comment: PERFORMED BY: [place] [id number] [address] [place], [place] [address] PATHOLOGIST FIRE APPARATUS ENGINEER CARLOS BIRMINGHAM M.D.Performed By: #### GLULS #### Point of Care testing ,GFR/1.73 sq M.predicted MDRD (S/P/Bld) [Vol rate/Area]10.432 mL/min/{1.73_m2} NormalThe [facility] Physician GroupComment on above:Performed By: #### GLULS #### Point of Care testing ,Glucose [Mass/Vol]78 mg/fUMdxihh47-771Qat [facility] Physician GroupComment on above:Result Comment: Random Glucose Reference Range is dependent on time and content of last meal. Glucose of more than 200 mg/dL in a nonstressed, ambulatory subject supports the diagnosis of Diabetes Mellitus. ADA recommended reference rangePerformed By: #### GLULS #### Point of Care testing ,Phosphate [Mass/Vol]4.5 mg/dLNormal2.5-4.5The [facility] Physician GroupComment on above:Performed By: #### GLULS #### Point of Care testing ,Potassium [Moles/Vol]4.3 mmol/LNormal3.5-5.1The [facility] Comment on above:Performed By: #### GLULS #### Point of Care testing ,Sodium [Moles/Vol]134 mmol/IZtk656-387Lgs [facility] Physician GroupComment on above:Performed By: #### GLULS #### Point of Care testing ,Urea nitrogen [Mass/Vol]35 mg/dLHigh7-25ThSt. Luke's [facility] Physician GroupComment on above:Performed By: #### GLULS #### Point of Care testing ,Glucose Poct Glucometerson 51-04-5045Hfomstg [Mass/Vol]130 mg/dLNormPhysicians Regional [facility] Boulevard Physician GroupComment on above:Result Comment: Random Glucose Reference Range is dependent on time and content of last meal. Glucose of more than 200 mg/dL in a nonstressed, ambulatory subject supports the diagnosis of Diabetes Mellitus. PERFORMED BY: [place] [id number] PATHOLOGIST FIRE APPARATUS ENGINEER CARLOS BIRMINGHAM M.D.Performed By: #### HEPACUTE, HBCAB, HBSAB #### [facility] ,Glucose [Mass/Vol]136 mg/dLNoFrye Regional Medical Center Physician Trace Regional HospitalComment on above: Result Comment: Random Glucose Reference Range is dependent on time and content of last meal. Glucose of more than 200 mg/dL in a nonstressed, ambulatory subject supports the diagnosis of Diabetes Mellitus. PERFORMED BY: [address] [address] PATHOLOGIST FIRE APPARATUS ENGINEER CARLOS BIRMINGHAM M.D.Performed By: #### HEPACUTE, HBCAB, HBSAB #### [facility] ,Glucose [Mass/Vol]105 mg/dLHCA Florida Starke Emergency Physician Trace Regional HospitalComment on above: Result Comment: Random Glucose Reference Range is dependent on time and content of last meal. Glucose of more than 200 mg/dL in a nonstressed, ambulatory subject supports the diagnosis of Diabetes Mellitus. PERFORMED BY: [address] [address] PATHOLOGIST FIRE APPARATUS ENGINEER CARLOS BIRMINGHAM M.D.Performed By: #### HEPACUTE, HBCAB, HBSAB #### [facility] ,Glucose [Mass/Vol]69 mg/dLHCA Florida Starke Emergency Physician GroupComment on above: Result Comment: Random Glucose Reference Range is dependent on time and content of last meal. Glucose of more than 200 mg/dL in a nonstressed, ambulatory subject supports the diagnosis of Diabetes Mellitus. PERFORMED BY: [place] [address] PATHOLOGIST FIRE APPARATUS ENGINEER CARLOS BIRMINGHAM M.D.Performed By: #### GLULS #### Point of Care testing ,Vkkgors8LvhetiLcc Firelands Physician GroupComment on above:Result Comment: Glu2: WILL NOTIFY DR/RN PERFORMED BY: [place] [address] PATHOLOGIST FIRE APPARATUS ENGINEER CARLOS BIRMINGHAM M.D.Performed By: #### HEPACUTE, HBCAB, HBSAB #### [facility] ,Glucose [Mass/Vol]48 mg/dLOff scale lowHollywood Medical Center Physician GroupComment on above:Result Comment: Random Glucose Reference Range is dependent on time and content of last meal. Glucose of more than 200 mg/dL in a nonstressed, ambulatory subject supports the diagnosis of Diabetes Mellitus.Performed By: #### HEPACUTE, HBCAB, HBSAB #### [facility] ,Glucose [Mass/Vol]89 mg/dLHCA Florida Starke Emergency Physician GroupComment on above: Result Comment: Random Glucose Reference Range is dependent on time and content of last meal. Glucose of more than 200 mg/dL in a nonstressed, ambulatory subject supports the diagnosis of Diabetes Mellitus. PERFORMED BY: [place] [address] PATHOLOGIST FIRE APPARATUS ENGINEER CARLOS BIRIMNGHAM M.D.Performed By: #### GLULS #### Point of Care testing ,XR hip RT min 2V(w/wo pelvis)*on 43-95-3512VR hip RT min 2V(w/wo pelvis)* [facility] Main [place] [id number] XRay Report Signed Patient: Rashard Lyman MR#: [id number] : 1960 Acct:[id number] Age/Sex: 64 / M ADM Date: 12/30/24 Loc: Room: [address] [place] [address] Type: ADM IN Attending Dr: Clayton Cardenas [...] Santiago M.D. 01/12/2025 4:27 PM Dictation Location: [place] [address] Transcribed By: [facility] 01/12/251626 Dictated By: Ari Santiago DO 01/12/251625 Signed By: 01/12/25 [facility] Physician GroupXR knee RT 2Von 81-58-2517CM knee RT 2VMIAM[facility] Main [place] [id number] XRay Report Signed Patient: Rashard Lyman MR#: [id number] : 1960 Acct:[id number] Age/Sex: 64 / M ADM Date: 12/30/24 Loc: Room: [address] [place] [address] Type: ADM IN Attending Dr: Clayton Cardenas [...] Santiago M.D. 01/12/2025 4:29 PM Dictation Location: [place] [address] Transcribed By: [facility] 01/12/25 1629 Dictated By: Ari Santiago DO 01/12/25 1628 Signed By: 01/12/25 1629NoFrye [facility] Physician Trace Regional HospitalXR wrist RT 2Von 00-00-6256GQ wrist RT 2VMIAMI [place] [address] XRay Report Signed Patient: Rashard Lyman MR#: [id number] : 1960 Acct:[id number] Age/Sex: 64 / M ADM Date: 12/30/24 Loc: Room: [address] [place] [address] Type: ADM IN Attending Dr: Clayton Cardenas [...] Santiago M.D. 01/12/2025 4:30 PM Dictation Location: [place] [address] Transcribed By: [facility] 01/12/25 1630 Dictated By: Ari Santiago DO 01/12/25 1629 Signed By: 01/12/25 1630NoFrye Regional [facility] Center Physician Trace Regional HospitalGlucose Poct Glucometerson 73-04-5490Blaunjd [Mass/Vol]182 mg/dLNoMarietta Memorial HospitalComment on above:Result Comment: Random Glucose Reference Range is dependent on time and content of last meal. Glucose of more than 200 mg/dL in a nonstressed, ambulatory subject supports the diagnosis of Diabetes Mellitus. PERFORMED BY: [place] [address] PATHOLOGIST FIRE APPARATUS ENGINEER CARLOS BIRMINGHAM M.D.Performed By: #### HEPACUTE, HBCAB, HBSAB #### [facility] ,Glucose [Mass/Vol]98 mg/dLNoFrye Regional Medical Center Physician GroupComment on above: Result Comment: Random Glucose Reference Range is dependent on time and content of last meal. Glucose of more than 200 mg/dL in a nonstressed, ambulatory subject supports the diagnosis of Diabetes Mellitus. PERFORMED BY: [place] [phone] PATHOLOGIST FIRE APPARATUS ENGINEER CARLOS BIRMINGHAM M.D.Performed By: #### GLULS #### Point of Care testing ,Xeyicrf2Fkg4: Cleaned MeterNoFrye Regional Medical Center Physician GroupComment on above: Result Comment: PERFORMED BY: [place] [phone] PATHOLOGIST FIRE APPARATUS ENGINEER CARLOS BIRMINGHAM M.D.Performed By: #### RENAL #### [facility] [address] [place] [address] USAGlucose [Mass/Vol]97 mg/dLNoFrye Regional Medical Center Physician GroupComment on above:Result Comment: Random Glucose Reference Range is dependent on time and content of last meal. Glucose of more than 200 mg/dL in a nonstressed, ambulatory subject supports the diagnosis of Diabetes Mellitus.Performed By: #### RENAL #### [facility] [address] [place] [address] USAGlucose [Mass/Vol]114 mg/dLHCA Florida Starke Emergency Physician GroupComment on above:Result Comment: Random Glucose Reference Range is dependent on time and content of last meal. Glucose of more than 200 mg/dL in a nonstressed, ambulatory subject supports the diagnosis of Diabetes Mellitus. PERFORMED BY: [place] [address] PATHOLOGIST FIRE APPARATUS ENGINEER CARLOS BIRMINGHAM M.D.Performed By: #### HEPACUTE, HBCAB, HBSAB #### [facility] ,Renal Function Panelon 90-51-2160Pbptwnu [Mass/Vol]3.0 g/dLLow3.5-5.7The [facility] Physician GroupComment on above:Performed By: #### HEPACUTE, HBCAB, HBSAB #### [facility] ,Anion gap [Moles/Vol]12.8 mmol/LNormal6.0-15.0The [facility] Physician Group Comment on above:Performed By: #### HEPACUTE, HBCAB, HBSAB #### [facility] ,Calcium [Mass/Vol]9.9 mg/dLNormal8.6-10.3The [facility] Physician GroupComment on above:Performed By: #### HEPACUTE, HBCAB, HBSAB #### [facility] ,Chloride [Moles/Vol]99 mmol/OFdvlwu17-895Lfy [facility] Physician GroupComment on above:Performed By: #### HEPACUTE, HBCAB, HBSAB #### [facility] ,CO2 [Moles/Vol]28.7 mmol/NPdzxyi76.0-31.0The [facility] Physician GroupComment on above:Performed By: #### HEPACUTE, HBCAB, HBSAB #### [facility] ,Creatinine [Mass/Vol]6.77 mg/dLHigh0.70-1.30The [facility] Physician Group Comment on above:Performed By: #### HEPACUTE, HBCAB, HBSAB #### [facility] ,Creatinine Clr Calc Mkkrirmf66.34NormalThSt. Luke's [facility] Physician GroupComment on above:Result Comment: PERFORMED BY: [place] [address] [place] [address] PATHOLOGIST FIRE APPARATUS ENGINEER CARLOS BIRMINGHAM M.D.Performed By: #### HEPACUTE, HBCAB, HBSAB #### [facility] ,GFR/1.73 sq M.predicted MDRD (S/P/Bld) [Vol rate/Area]8.468 mL/min/{1.73_m2} NormalThe [facility] Physician GroupComment on above:Performed By: #### HEPACUTE, HBCAB, HBSAB #### [facility] ,Glucose [Mass/Vol]115 mg/cMSszc50-404Msp [facility] Physician GroupComment on above:Result Comment: Random Glucose Reference Range is dependent on time and content of last meal. Glucose of more than 200 mg/dL in a nonstressed, ambulatory subject supports the diagnosis of Diabetes Mellitus. ADA recommended reference rangePerformed By: #### HEPACUTE, HBCAB, HBSAB #### [facility] ,Phosphate [Mass/Vol]4.5 mg/dLNormal2.5-4.5The [facility] Physician GroupComment on above:Performed By: #### HEPACUTE, HBCAB, HBSAB #### [facility] ,Potassium [Moles/Vol]4.5 mmol/LNormal3.5-5.1The [facility] Physician Group Comment on above:Result Comment: Hemolysis is present at a level that could interfere with the result. Contact lab if redraw is requiredPerformed By: #### HEPACUTE, HBCAB, HBSAB #### [facility] ,Sodium [Moles/Vol]136 mmol/VKssuxf712-042Obz [facility] Physician GroupComment on above:Performed By: #### HEPACUTE, HBCAB, HBSAB #### [facility] ,Urea nitrogen [Mass/Vol]44 mg/dLHigh7-25The [facility] Physician GroupComment on above:Performed By: #### HEPACUTE, HBCAB, HBSAB #### [facility] ,Glucose Poct Glucometerson 69-38-9759Toeqfvo [Mass/Vol]180 mg/dLNormalThe [facility] Physician GroupComment on above:Result Comment: Random Glucose Reference Range is dependent on time and content of last meal. Glucose of more than 200 mg/dL in a nonstressed, ambulatory subject supports the diagnosis of Diabetes Mellitus. PERFORMED BY: [place] [address] [place] [address] PATHOLOGIST FIRE APPARATUS ENGINEER CARLOS BIRMINGHAM M.D.Performed By: #### RENAL #### [facility] [address] [place] [address] USAGlucose [Mass/Vol]111 mg/dLHCA Florida Starke Emergency Physician GroupComment on above:Result Comment: Random Glucose Reference Range is dependent on time and content of last meal. Glucose of more than 200 mg/dL in a nonstressed, ambulatory subject supports the diagnosis of Diabetes Mellitus. PERFORMED BY: [place] [address] PATHOLOGIST FIRE APPARATUS ENGINEER CARLOS BIRMINGHAM M.D.Performed By: #### HEPACUTE, HBCAB, HBSAB #### [facility] ,Cpoflpu9Pru8: Cleaned MeterNoThe Jewish Hospital GroupComment on above: Result Comment: PERFORMED BY: [place] [address] PATHOLOGIST FIRE APPARATUS ENGINEER CARLOS BIRMINGHAM M.D.Performed By: #### HEPACUTE, HBCAB, HBSAB #### [facility] ,Glucose [Mass/Vol]130 mg/dLNoFrye Regional Medical Center Physician GroupComment on above: Result Comment: Random Glucose Reference Range is dependent on time and content of last meal. Glucose of more than 200 mg/dL in a nonstressed, ambulatory subject supports the diagnosis of Diabetes Mellitus.Performed By: #### HEPACUTE, HBCAB, HBSAB #### [facility] ,Glucose [Mass/Vol]79 mg/dLHCA Florida Starke Emergency Physician GroupComment on above: Result Comment: Random Glucose Reference Range is dependent on time and content of last meal. Glucose of more than 200 mg/dL in a nonstressed, ambulatory subject supports the diagnosis of Diabetes Mellitus. PERFORMED BY: [place] [address] PATHOLOGIST FIRE APPARATUS ENGINEER CARLOS BIRMINGHAM M.D.Performed By: #### RENAL #### [place] [address] USAGlucose Poct Glucometerson 00-62-8033Okzbcnw [Mass/Vol]187 mg/dLNoFrye Regional Medical Center Physician GroupComment on above:Result Comment: Random Glucose Reference Range is dependent on time and content of last meal. Glucose of more than 200 mg/dL in a nonstressed, ambulatory subject supports the diagnosis of Diabetes Mellitus. PERFORMED BY: [address] ANDREIYESENIA [place] [id number] PATHOLOGIST FIRE APPARATUS ENGINEER CARLOS BIRMINGHAM M.D.Performed By: #### HEPACUTE, HBCAB, HBSAB #### [facility] ,Yushvam1Gdg5: Cleaned MeterHCA Florida Starke Emergency Physician GroupComment on above: Result Comment: PERFORMED BY: [place] [address] PATHOLOGIST FIRE APPARATUS ENGINEER CARLOS BIRMINGHAM M.D.Performed By: #### HEPACUTE, HBCAB, HBSAB #### [facility] ,Glucose [Mass/Vol]198 mg/dLHCA Florida Starke Emergency Physician GroupComment on above: Result Comment: Random Glucose Reference Range is dependent on time and content of last meal. Glucose of more than 200 mg/dL in a nonstressed, ambulatory subject supports the diagnosis of Diabetes Mellitus.Performed By: #### HEPACUTE, HBCAB, HBSAB #### [facility] ,Shlfdjo6Hlf1: Cleaned MeterHCA Florida Starke Emergency Physician GroupComment on above: Result Comment: PERFORMED BY: [place] [id number] PATHOLOGIST FIRE APPARATUS ENGINEER CARLOS BIRMINGHAM M.D.Performed By: #### GLULS #### Point of Care testing ,Glucose [Mass/Vol]101 mg/dLHCA Florida Starke Emergency Physician GroupComment on above: Result Comment: Random Glucose Reference Range is dependent on time and content of last meal. Glucose of more than 200 mg/dL in a nonstressed, ambulatory subject supports the diagnosis of Diabetes Mellitus.Performed By: #### GLULS #### Point of Care testing ,Ipxnqml7Gam5: Cleaned MeterHCA Florida Starke Emergency Physician GroupComment on above: Result Comment: PERFORMED BY: [address] [place] [address] PATHOLOGIST FIRE APPARATUS ENGINEER CARLOS BIRMINGHAM M.D.Performed By: #### GLULS #### Point of Care testing ,Glucose [Mass/Vol]61 mg/dLNormalThe [facility] Physician GroupComment on above: Result Comment: Random Glucose Reference Range is dependent on time and content of last meal. Glucose of more than 200 mg/dL in a nonstressed, ambulatory subject supports the diagnosis of Diabetes Mellitus.Performed By: #### GLULS #### Point of Care testing ,Complete Blood Count Auto Diffon 90-82-4609Ihjdmexhu (Bld) [#/Vol]0.1 10*3/uL Normal0.0-0.2The [facility] Physician GroupComment on above:Result Comment: PERFORMED BY: [facility] [address] [place] [address] PATHOLOGIST FIRE APPARATUS ENGINEER CARLOS BIRMINGHAM M.D.Performed By: #### HEPACUTE, HBCAB, HBSAB #### [facility] ,Basophils/100 WBC (Bld)1.1 %Normal.The [facility] Physician GroupComment on above:Performed By: #### HEPACUTE, HBCAB, HBSAB #### [facility] ,Eosinophils (Bld) [#/Vol]0.5 10*3/uLHigh0.0-0.45The [facility] Physician Group Comment on above:Performed By: #### HEPACUTE, HBCAB, HBSAB #### [facility] ,Eosinophils/100 WBC (Bld)6.1 %Normal.The [facility] Physician GroupComment on above:Performed By: #### HEPACUTE, HBCAB, HBSAB #### [facility] ,Erythrocyte distribution width (RBC) [Ratio]14.5 %Rgftwc89.0-14.8The [facility] Physician GroupComment on above:Performed By: #### HEPACUTE, HBCAB, HBSAB #### [facility] ,Hematocrit (Bld) [Volume fraction]24.9 %Low38.8-50.0The [facility] Physician GroupComment on above:Performed By: #### HEPACUTE, HBCAB, HBSAB #### [facility] ,Hemoglobin (Bld) [Mass/Vol]8.2 g/dLLow13.0-17.0The [facility] Physician Group Comment on above:Performed By: #### HEPACUTE, HBCAB, HBSAB #### [facility] ,Lymphocytes (Bld) [#/Vol]1.8 10*3/uLNormal1.00-4.8The [facility] Physician Group Comment on above:Performed By: #### HEPACUTE, HBCAB, HBSAB #### [facility] ,Lymphocytes/100 WBC (Bld)21.3 %Normal.The [facility] Physician GroupComment on above:Performed By: #### HEPACUTE, HBCAB, HBSAB #### [facility] ,MCH (RBC) [Entitic mass]29.3 hfXoqzkk87.5-35.2The [facility] Physician Group Comment on above:Performed By: #### HEPACUTE, HBCAB, HBSAB #### [facility] ,MCV (RBC) [Entitic vol]88.6 dKPilrqe09.5-101The [facility] Physician Group Comment on above:Performed By: #### HEPACUTE, HBCAB, HBSAB #### [facility] ,Mean Corpuscular HGB Conc33.0 g/iUTeoodw66.5-35.6The [facility]ician Group Comment on above:Performed By: #### HEPACUTE, HBCAB, HBSAB #### [facility] ,Monocytes (Bld) [#/Vol]0.9 10*3/uLHigh0.0-0.8The [facility]ician Group Comment on above:Performed By: #### HEPACUTE, HBCAB, HBSAB #### [facility] ,Monocytes/100 WBC (Bld)10.9 %Normal.The [facility] Physician GroupComment on above:Performed By: #### HEPACUTE, HBCAB, HBSAB #### [facility] ,Neutrophils (Bld) [#/Vol]5.1 10*3/uLNormal1.8-7.7The [facility]ician Group Comment on above:Performed By: #### HEPACUTE, HBCAB, HBSAB #### [facility] ,Neutrophils/100 WBC (Bld)60.6 %Normal.The [facility] Physician GroupComment on above:Performed By: #### HEPACUTE, HBCAB, HBSAB #### [facility] ,NRBC%0.1 /100{WBC}Normal0-0.5The [facility] Physician GroupComment on above: Performed By: #### HEPACUTE, HBCAB, HBSAB #### [facility] ,Platelet mean volume (Bld) [Entitic vol]6.0 fLLow6.6-10.1The [facility] Physician GroupComment on above:Performed By: #### HEPACUTE, HBCAB, HBSAB #### [facility] ,Platelets (Bld) [#/Vol]370 10*3/bFPrhkin085-780Kcy [facility] Physician Group Comment on above:Performed By: #### HEPACUTE, HBCAB, HBSAB #### [facility] ,RBC (Bld) [#/Vol]2.82 10*6/uLLow3.90-5.60The [facility] Physician GroupComment on above:Performed By: #### HEPACUTE, HBCAB, HBSAB #### [facility] ,WBC (Bld) [#/Vol]8.4 10*3/uLNormal4.1-10.5The [facility] Physician GroupComment on above:Performed By: #### HEPACUTE, HBCAB, HBSAB #### [facility] ,White Blood Count8.4 [CFU]/mLNormal4.1-10.5The [facility] Physician GroupComment on above:Performed By: #### HEPACUTE, HBCAB, HBSAB #### [facility] ,Glucose Poct Glucometerson 17-14-0786Pdvahjf [Mass/Vol]207 mg/dLHCA Florida Starke Emergency Physician GroupComment on above:Result Comment: Random Glucose Reference Range is dependent on time and content of last meal. Glucose of more than 200 mg/dL in a nonstressed, ambulatory subject supports the diagnosis of Diabetes Mellitus. PERFORMED BY: [phone] PATHOLOGIST FIRE APPARATUS ENGINEER CARLOS BIRMINGHAM M.D.Performed By: #### RENAL #### [facility] [address] [place] [address] USAGlucose [Mass/Vol]99 mg/dLHCA Florida Starke Emergency Physician GroupComment on above:Result Comment: Random Glucose Reference Range is dependent on time and content of last meal. Glucose of more than 200 mg/dL in a nonstressed, ambulatory subject supports the diagnosis of Diabetes Mellitus. PERFORMED BY: [place] [phone] PATHOLOGIST FIRE APPARATUS ENGINEER CARLOS BIRMINGHAM M.D.Performed By: #### RENAL, MG #### [facility] [address] [place] [address] GGNCqkajta3Bse4: Cleaned MeterHCA Florida Starke Emergency Physician GroupComment on above:Result Comment: PERFORMED BY: [place] [phone] PATHOLOGIST FIRE APPARATUS ENGINEER CARLOS BIRMINGHAM M.D.Performed By: #### GLULS #### Point of Care testing ,Glucose [Mass/Vol]122 mg/dLHCA Florida Starke Emergency Physician GroupComment on above: Result Comment: Random Glucose Reference Range is dependent on time and content of last meal. Glucose of more than 200 mg/dL in a nonstressed, ambulatory subject supports the diagnosis of Diabetes Mellitus.Performed By: #### GLULS #### Point of Care testing ,Tzpcfeq4Ggp4: Cleaned MeterNoFrye Regional Medical Center Physician GroupComment on above: Result Comment: PERFORMED BY: [place] [address] PATHOLOGIST FIRE APPARATUS ENGINEER CARLOS BIRMINGHAM M.D.Performed By: #### HEPACUTE, HBCAB, HBSAB #### [facility] ,Glucose [Mass/Vol]87 mg/dLNormalThe [facility] Physician GroupComment on above: Result Comment: Random Glucose Reference Range is dependent on time and content of last meal. Glucose of more than 200 mg/dL in a nonstressed, ambulatory subject supports the diagnosis of Diabetes Mellitus.Performed By: #### HEPACUTE, HBCAB, HBSAB #### [facility] ,Renal Function Panelon 89-35-1176Ldchrtl [Mass/Vol]3.1 g/dLLow3.5-5.7The [facility] Physician GroupComment on above:Performed By: #### RENAL #### [facility] [address] [place] [address] USAAnion gap [Moles/Vol]11.9 mmol/LNormal6.0-15.0The [facility] Physician GroupComment on above:Performed By: #### RENAL #### [facility] [address] [place] [address] USACalcium [Mass/Vol]10.4 mg/dLHigh8.6-10.3The [facility] Physician GroupComment on above:Performed By: #### RENAL #### [facility] [address] [place] [address] USAChloride [Moles/Vol]99 mmol/GXualqc10-585Pvk [facility] Physician GroupComment on above:Performed By: #### RENAL #### [facility] [address] [place] [address] USACO2 [Moles/Vol]27.2 mmol/WNcexcg26.0-31.0The [facility] Physician GroupComment on above:Performed By: #### RENAL #### [facility] [address] [place] [address] USACreatinine [Mass/Vol]5.10 mg/dLHigh0.70-1.30The [facility] Physician GroupComment on above:Performed By: #### RENAL #### [place] [address] USACreatinine Clr Calc Gmjgtvec18.08NormalThe [facility] Physician GroupComment on above:Result Comment: PERFORMED BY: [place] [address] PATHOLOGIST FIRE APPARATUS ENGINEER CARLOS BIRMINGHAM M.D.Performed By: #### RENAL #### [place] [address] USAGFR/1.73 sq M.predicted MDRD (S/P/Bld) [Vol rate/Area] 11.897 mL/min/{1.73_m2}NormalThe [facility] Physician GroupComment on above: Performed By: #### RENAL #### [place] [address] USAGlucose [Mass/Vol]90 mg/mXVtshtr81-063Fok [facility] Physician GroupComment on above:Result Comment: Random Glucose Reference Range is dependent on time and content of last meal. Glucose of more than 200 mg/dL in a nonstressed, ambulatory subject supports the diagnosis of Diabetes Mellitus. ADA recommended reference rangePerformed By: #### RENAL #### [place] [address] USAPhosphate [Mass/Vol]4.1 mg/dLNormal2.5-4.5The [facility] Physician GroupComment on above:Performed By: #### RENAL #### [place] [address] USAPotassium [Moles/Vol]4.1 mmol/LNormal3.5-5.1The [facility] Physician GroupComment on above:Performed By: #### RENAL #### [place] [address] USASodium [Moles/Vol]134 mmol/TSep288-250Msj [facility] Physician GroupComment on above:Performed By: #### RENAL #### [place] [address] USAUrea nitrogen [Mass/Vol]34 mg/dLHigh7-25The [facility] Physician GroupComment on above:Performed By: #### RENAL #### [place] [address] USAGlucose Poct Glucometerson 87-38-6853Wdexajk2Lfl4: Cleaned MeterNoFrye Regional Medical Center Physician Trace Regional HospitalComment on above:Result Comment: PERFORMED BY: [place] [address] PATHOLOGIST FIRE APPARATUS ENGINEER CARLOS BIRMINGHAM M.D.Performed By: #### HEPACUTE, HBCAB, HBSAB #### [facility] ,Glucose [Mass/Vol]189 mg/dLNoFrye Regional Medical Center Physician GroupComment on above: Result Comment: Random Glucose Reference Range is dependent on time and content of last meal. Glucose of more than 200 mg/dL in a nonstressed, ambulatory subject supports the diagnosis of Diabetes Mellitus.Performed By: #### HEPACUTE, HBCAB, HBSAB #### [facility] ,Glucose [Mass/Vol]138 mg/dLHCA Florida Starke Emergency Physician GroupComment on above: Result Comment: Random Glucose Reference Range is dependent on time and content of last meal. Glucose of more than 200 mg/dL in a nonstressed, ambulatory subject supports the diagnosis of Diabetes Mellitus. PERFORMED BY: [place] [address] PATHOLOGIST FIRE APPARATUS ENGINEER CARLOS BIRMINGHAM M.D.Performed By: #### GLULS #### Point of Care testing ,Glucose [Mass/Vol]131 mg/dLHCA Florida Starke Emergency Physician GroupComment on above: Result Comment: Random Glucose Reference Range is dependent on time and content of last meal. Glucose of more than 200 mg/dL in a nonstressed, ambulatory subject supports the diagnosis of Diabetes Mellitus. PERFORMED BY: [place] [address] PATHOLOGIST FIRE APPARATUS ENGINEER CARLOS BIRMINGHAM M.D.Performed By: #### HEPACUTE, HBCAB, HBSAB #### [facility] ,Glucose [Mass/Vol]93 mg/dLHCA Florida Starke Emergency Physician GroupComment on above: Result Comment: Random Glucose Reference Range is dependent on time and content of last meal. Glucose of more than 200 mg/dL in a nonstressed, ambulatory subject supports the diagnosis of Diabetes Mellitus. PERFORMED BY: [place] [address] PATHOLOGIST FIRE APPARATUS ENGINEER CARLOS BIRMINGHAM M.D.Performed By: #### HEPACUTE, HBCAB, HBSAB #### [facility] ,Glucose Poct Glucometerson 36-87-3788Fzupwgb [Mass/Vol]273 mg/dLHCA Florida Starke Emergency Physician GroupComment on above:Result Comment: Random Glucose Reference Range is dependent on time and content of last meal. Glucose of more than 200 mg/dL in a nonstressed, ambulatory subject supports the diagnosis of Diabetes Mellitus. PERFORMED BY: [place] [id number] PATHOLOGIST FIRE APPARATUS ENGINEER CARLOS BIRMINGHAM M.D.Performed By: #### HEPACUTE, HBCAB, HBSAB #### [facility] ,Glucose [Mass/Vol]147 mg/dLHCA Florida Starke Emergency Physician GroupComment on above: Result Comment: Random Glucose Reference Range is dependent on time and content of last meal. Glucose of more than 200 mg/dL in a nonstressed, ambulatory subject supports the diagnosis of Diabetes Mellitus. PERFORMED BY: [place] [address] PATHOLOGIST FIRE APPARATUS ENGINEER CARLOS BIRMINGHAM M.D.Performed By: #### HEPACUTE, HBCAB, HBSAB #### [facility] ,Otnnpeu0Ort2: Cleaned MeterNoFrye Regional Medical Center Physician GroupComment on above: Result Comment: PERFORMED BY: [place] [address] PATHOLOGIST FIRE APPARATUS ENGINEER CARLOS BIRMINGHAM M.D.Performed By: #### HEPACUTE, HBCAB, HBSAB #### [facility] ,Glucose [Mass/Vol]169 mg/dLHCA Florida Starke Emergency Physician GroupComment on above: Result Comment: Random Glucose Reference Range is dependent on time and content of last meal. Glucose of more than 200 mg/dL in a nonstressed, ambulatory subject supports the diagnosis of Diabetes Mellitus.Performed By: #### HEPACUTE, HBCAB, HBSAB #### [facility] ,Glucose [Mass/Vol]99 mg/dLNoFrye Regional Medical Center Physician GroupComment on above: Result Comment: Random Glucose Reference Range is dependent on time and content of last meal. Glucose of more than 200 mg/dL in a nonstressed, ambulatory subject supports the diagnosis of Diabetes Mellitus. PERFORMED BY: [address] [place] [address] PATHOLOGIST FIRE APPARATUS ENGINEER CARLOS BIRMINGHAM M.D.Performed By: #### HEPACUTE, HBCAB, HBSAB #### [facility] ,Diff and CBCon 13-77-7952Atnmihjyxxml Ql (Bld)SlightNormPhysicians Regional Medical Center [facility] Col[facility] Boulevard Physician GroupComment on above:Performed By: #### HEPACUTE, HBCAB, HBSAB #### [facility] ,Band form neutrophils/100 WBC (Bld)4 %Normal0-5The [facility] Comment on above:Performed By: #### HEPACUTE, HBCAB, HBSAB #### [facility] ,Eosinophils/100 WBC (Bld)5 %High1-3The [facility] Physician GroupComment on above:Performed By: #### HEPACUTE, HBCAB, HBSAB #### [facility] ,Erythrocyte distribution width (RBC) [Ratio]14.2 %Edhcim04.0-14.8The [facility] Physician GroupComment on above:Performed By: #### HEPACUTE, HBCAB, HBSAB #### [facility] ,Hematocrit (Bld) [Volume fraction]25.2 %Low38.8-50.0The [facility] Physician GroupComment on above:Performed By: #### HEPACUTE, HBCAB, HBSAB #### [facility] ,Hemoglobin (Bld) [Mass/Vol]8.3 g/dLLow13.0-17.0The [facility] Comment on above:Performed By: #### HEPACUTE, HBCAB, HBSAB #### [facility] ,Large PlateletsSNovant Health Kernersville Medical Center Physician GroupComment on above:Result Comment: PERFORMED BY: [facility] [address] PATHOLOGIST FIRE APPARATUS ENGINEER CARLOS BIRMINGHAM M.D.Performed By: #### HEPACUTE, HBCAB, HBSAB #### [facility] ,Lymphocytes/100 WBC (Bld)17 %Agj35-07Emd [facility] Physician GroupComment on above:Performed By: #### HEPACUTE, HBCAB, HBSAB #### [facility] ,MCH (RBC) [Entitic mass]29.1 dqCdwhje96.5-35.2The [facility] Comment on above:Performed By: #### HEPACUTE, HBCAB, HBSAB #### [facility] ,MCV (RBC) [Entitic vol]88.7 jLRsrvmh66.5-101The [facility] Comment on above:Performed By: #### HEPACUTE, HBCAB, HBSAB #### [facility] ,Mean Corpuscular HGB Conc32.8 g/mTGjalsg10.5-35.6The [facility] Comment on above:Performed By: #### HEPACUTE, HBCAB, HBSAB #### [facility] ,MicrocytosisSNovant Health Kernersville Medical Center Physician GroupComment on above:Performed By: #### HEPACUTE, HBCAB, HBSAB #### [facility] ,Monocytes/100 WBC (Bld)6 %Normal2-11The [facility] Physician GroupComment on above:Performed By: #### HEPACUTE, HBCAB, HBSAB #### [facility] ,Myelocytes1 %High0-0The [facility] Physician GroupComment on above:Performed By: #### HEPACUTE, HBCAB, HBSAB #### [facility] ,Platelet EstimateNormalNormWellington Regional Medical Center Physician GroupComment on above:Performed By: #### HEPACUTE, HBCAB, HBSAB #### [facility] ,Platelet mean volume (Bld) [Entitic vol]6.3 fLLow6.6-10.1The [facility] Physician GroupComment on above:Performed By: #### HEPACUTE, HBCAB, HBSAB #### [facility] ,Platelets (Bld) [#/Vol]349 10*3/cYQradmb711-612Cjx [facility] Group Comment on above:Performed By: #### HEPACUTE, HBCAB, HBSAB #### [facility] ,PoikilocytosisSNovant Health Kernersville [facility] Center Physician GroupComment on above: Performed By: #### HEPACUTE, HBCAB, HBSAB #### [facility] ,PolychromasiaSNovant Health Kernersville Medical Center Physician GroupComment on above: Performed By: #### HEPACUTE, HBCAB, HBSAB #### [facility] ,RBC (Bld) [#/Vol]2.84 10*6/uLLow3.90-5.60The [facility] Physician GroupComment on above:Performed By: #### HEPACUTE, HBCAB, HBSAB #### [facility] ,Segmented neutrophils/100 WBC (Bld)68 %Hmzyco99-67Dgm [facility] Comment on above:Performed By: #### HEPACUTE, HBCAB, HBSAB #### [facility] ,StomatocytesSNovant Health Kernersville [facility] Center Physician GroupComment on above:Performed By: #### HEPACUTE, HBCAB, HBSAB #### [facility] ,WBC (Bld) [#/Vol]9.3 10*3/uLNormal4.1-10.5The [facility] Physician GroupComment on above:Performed By: #### HEPACUTE, HBCAB, HBSAB #### [facility] ,White Blood Count9.3 [CFU]/mLNormal4.1-10.5The [facility] Physician [facility] HospitalComment on above:Performed By: #### HEPACUTE, HBCAB, HBSAB #### [facility] ,Glucose Poct Glucometerson 88-98-3125Vobapup [Mass/Vol]209 mg/dLNoFrye Regional Medical Center Physician Trace Regional HospitalComment on above:Result Comment: Random Glucose Reference Range is dependent on time and content of last meal. Glucose of more than 200 mg/dL in a nonstressed, ambulatory subject supports the diagnosis of Diabetes Mellitus. PERFORMED BY: [place] [phone] PATHOLOGIST FIRE APPARATUS ENGINEER CARLOS BIRMINGHAM M.D.Performed By: #### RENAL, MG #### [place] [address] USAGlucose [Mass/Vol]172 mg/dLNoFrye Regional Medical Center Physician Trace Regional HospitalComment on above:Result Comment: Random Glucose Reference Range is dependent on time and content of last meal. Glucose of more than 200 mg/dL in a nonstressed, ambulatory subject supports the diagnosis of Diabetes Mellitus. PERFORMED BY: [place] [phone] PATHOLOGIST FIRE APPARATUS ENGINEER CARLOS BIRMINGHAM M.D.Performed By: #### GLULS #### Point of Care testing ,Glucose [Mass/Vol]121 mg/dLNoFrye Regional Medical Center Physician Trace Regional HospitalComment on above: Result Comment: Random Glucose Reference Range is dependent on time and content of last meal. Glucose of more than 200 mg/dL in a nonstressed, ambulatory subject supports the diagnosis of Diabetes Mellitus. PERFORMED BY: [place] [phone] PATHOLOGIST FIRE APPARATUS ENGINEER CARLOS BIRMINGHAM M.D.Performed By: #### HEPACUTE, HBCAB, HBSAB #### [facility] ,Glucose [Mass/Vol]86 mg/dLHCA Florida Starke Emergency Physician GroupComment on above: Result Comment: Random Glucose Reference Range is dependent on time and content of last meal. Glucose of more than 200 mg/dL in a nonstressed, ambulatory subject supports the diagnosis of Diabetes Mellitus. PERFORMED BY: [address] [place] [address] PATHOLOGIST FIRE APPARATUS ENGINEER CARLOS BIRMINGHAM M.D.Performed By: #### HEPACUTE, HBCAB, HBSAB #### [facility] ,Complete Blood Count Auto Diffon [id number] (Bld) [#/Vol]0.2 10*3/uL Normal0.0-0.2The [facility] Physician GroupComment on above:Result Comment: PERFORMED BY: [address] [place] [address] PATHOLOGIST FIRE APPARATUS ENGINEER CARLOS BIRMINGHAM M.D.Performed By: #### HEPACUTE, HBCAB, HBSAB #### [facility] ,Basophils/100 WBC (Bld)1.3 %Normal.The [facility] Physician GroupComment on above:Performed By: #### HEPACUTE, HBCAB, HBSAB #### [facility] ,Eosinophils (Bld) [#/Vol]0.6 10*3/uLHigh0.0-0.45The [facility] Comment on above:Performed By: #### HEPACUTE, HBCAB, HBSAB #### [facility] ,Eosinophils/100 WBC (Bld)4.6 %Normal.The [facility] Physician GroupComment on above:Performed By: #### HEPACUTE, HBCAB, HBSAB #### [facility] ,Erythrocyte distribution width (RBC) [Ratio]14.0 %Vpysoj88.0-14.8The [facility] Physician GroupComment on above:Performed By: #### HEPACUTE, HBCAB, HBSAB #### [facility] ,Hematocrit (Bld) [Volume fraction]27.3 %Low38.8-50.0The [facility] Physician GroupComment on above:Performed By: #### HEPACUTE, HBCAB, HBSAB #### [facility] ,Hemoglobin (Bld) [Mass/Vol]8.9 g/dLLow13.0-17.0The [facility] Comment on above:Performed By: #### HEPACUTE, HBCAB, HBSAB #### [facility] ,Lymphocytes (Bld) [#/Vol]2.6 10*3/uLNormal1.00-4.8The [facility] Comment on above:Performed By: #### HEPACUTE, HBCAB, HBSAB #### [facility] ,Lymphocytes/100 WBC (Bld)20.4 %Normal.The [facility] Physician GroupComment on above:Performed By: #### HEPACUTE, HBCAB, HBSAB #### [facility] ,MCH (RBC) [Entitic mass]28.9 udCsivgu72.5-35.2The [facility] Comment on above:Performed By: #### HEPACUTE, HBCAB, HBSAB #### [facility] ,MCV (RBC) [Entitic vol]88.7 yLVmkclg16.5-101The [facility] Comment on above:Performed By: #### HEPACUTE, HBCAB, HBSAB #### [facility] ,Mean Corpuscular HGB Conc32.6 g/gDLakvwd73.5-35.6The [facility] Comment on above:Performed By: #### HEPACUTE, HBCAB, HBSAB #### [facility] ,Monocytes (Bld) [#/Vol]0.9 10*3/uLHigh0.0-0.8The [facility] Comment on above:Performed By: #### HEPACUTE, HBCAB, HBSAB #### [facility] ,Monocytes/100 WBC (Bld)7.1 %Normal.The [facility] Physician GroupComment on above:Performed By: #### HEPACUTE, HBCAB, HBSAB #### [facility] ,Neutrophils (Bld) [#/Vol]8.5 10*3/uLHigh1.8-7.7The [facility] Comment on above:Performed By: #### HEPACUTE, HBCAB, HBSAB #### [facility] ,Neutrophils/100 WBC (Bld)66.6 %Normal.The [facility] Physician GroupComment on above:Performed By: #### HEPACUTE, HBCAB, HBSAB #### [facility] ,NRBC%0.0 /100{WBC}Normal0-0.5The [facility] Physician GroupComment on above: Performed By: #### HEPACUTE, HBCAB, HBSAB #### [facility] ,Platelet mean volume (Bld) [Entitic vol]6.8 fLNormal6.6-10.1The [facility] Physician GroupComment on above:Performed By: #### HEPACUTE, HBCAB, HBSAB #### [facility] ,Platelets (Bld) [#/Vol]381 10*3/cILylcet237-708Kit [facility] Comment on above:Performed By: #### HEPACUTE, HBCAB, HBSAB #### [facility] ,RBC (Bld) [#/Vol]3.08 10*6/uLLow3.90-5.60The [facility] Physician GroupComment on above:Performed By: #### HEPACUTE, HBCAB, HBSAB #### [facility] ,WBC (Bld) [#/Vol]12.7 10*3/uLHigh4.1-10.5The [facility] Physician GroupComment on above:Performed By: #### HEPACUTE, HBCAB, HBSAB #### [facility] ,White Blood Count12.7 [CFU]/mLHigh4.1-10.5The [facility] Physician GroupComment on above:Performed By: #### HEPACUTE, HBCAB, HBSAB #### [facility] ,Glucose Poct Glucometerson 96-04-0227Anwfnml [Mass/Vol]155 mg/dLHCA Florida Starke Emergency Physician GroupComment on above:Result Comment: Random Glucose Reference Range is dependent on time and content of last meal. Glucose of more than 200 mg/dL in a nonstressed, ambulatory subject supports the diagnosis of Diabetes Mellitus. PERFORMED BY: [place] [address] PATHOLOGIST FIRE APPARATUS ENGINEER CARLOS BIRMINGHAM M.D.Performed By: #### GLULS #### Point of Care testing ,Glucose [Mass/Vol]81 mg/dLHCA Florida Starke Emergency Physician GroupComment on above: Result Comment: Random Glucose Reference Range is dependent on time and content of last meal. Glucose of more than 200 mg/dL in a nonstressed, ambulatory subject supports the diagnosis of Diabetes Mellitus. PERFORMED BY: [place] [address] PATHOLOGIST FIRE APPARATUS ENGINEER CARLOS BIRMINGHAM M.D.Performed By: #### GLULS #### Point of Care testing ,Jbeljtr0Qoz2: Cleaned MeterNoFrye Regional Medical Center Physician GroupComment on above: Result Comment: PERFORMED BY: [place] [address] PATHOLOGIST FIRE APPARATUS ENGINEER CARLOS BIRMINGHAM M.D.Performed By: #### RENAL #### [facility] [address] [place] [address] USAGlucose [Mass/Vol]120 mg/dLHCA Florida Starke Emergency Physician GroupComment on above:Result Comment: Random Glucose Reference Range is dependent on time and content of last meal. Glucose of more than 200 mg/dL in a nonstressed, ambulatory subject supports the diagnosis of Diabetes Mellitus.Performed By: #### RENAL #### [facility] [address] [place] [address] USAGlucose [Mass/Vol]111 mg/dLHCA Florida Starke Emergency Physician GroupComment on above:Result Comment: Random Glucose Reference Range is dependent on time and content of last meal. Glucose of more than 200 mg/dL in a nonstressed, ambulatory subject supports the diagnosis of Diabetes Mellitus. PERFORMED BY: [place] [address] PATHOLOGIST FIRE APPARATUS ENGINEER CARLOS BIRMINGHAM M.D.Performed By: #### RENAL #### [address] [address] USARenal Function Panelon 88-44-6774Oulfpdv [Mass/Vol]3.2 g/dLLow3.5-5.7The [facility] Physician GroupComment on above:Performed By: #### HEPACUTE, HBCAB, HBSAB #### [facility] ,Anion gap [Moles/Vol]13.1 mmol/LNormal6.0-15.0[facility] Comment on above:Performed By: #### HEPACUTE, HBCAB, HBSAB #### [facility] ,Calcium [Mass/Vol]10.0 mg/dLNormal8.6-10.3The [facility] Physician GroupComment on above:Performed By: #### HEPACUTE, HBCAB, HBSAB #### [facility] ,Chloride [Moles/Vol]97 mmol/PRfe05-760Rkb [facility] HospitalComment on above:Performed By: #### HEPACUTE, HBCAB, HBSAB #### [facility] ,CO2 [Moles/Vol]29.0 mmol/RLbsqyy52.0-31.0The [facility] Physician GroupComment on above:Performed By: #### HEPACUTE, HBCAB, HBSAB #### [facility] ,Creatinine [Mass/Vol]6.38 mg/dLHigh0.70-1.30The [facility] Comment on above:Performed By: #### HEPACUTE, HBCAB, HBSAB #### [facility] ,Creatinine Clr Calc Bimydrbe39.00NormalThe [facility] Physician GroupComment on above:Result Comment: PERFORMED BY: [address] [address] PATHOLOGIST FIRE APPARATUS ENGINEER CARLOS S VINNIE M.D.Performed By: #### HEPACUTE, HBCAB, HBSAB #### [facility] ,GFR/1.73 sq M.predicted MDRD (S/P/Bld) [Vol rate/Area]9.094 mL/min/{1.73_m2} NormalThe [facility] Physician GroupComment on above:Performed By: #### HEPACUTE, HBCAB, HBSAB #### [facility] ,Glucose [Mass/Vol]150 mg/uVVkrr54-641Ygw [facility] Physician GroupComment on above:Result Comment: Random Glucose Reference Range is dependent on time and content of last meal. Glucose of more than 200 mg/dL in a nonstressed, ambulatory subject supports the diagnosis of Diabetes Mellitus. ADA recommended reference rangePerformed By: #### HEPACUTE, HBCAB, HBSAB #### [facility] ,Phosphate [Mass/Vol]4.8 mg/dLHigh2.5-4.5The [facility] Physician GroupComment on above:Performed By: #### HEPACUTE, HBCAB, HBSAB #### [facility] ,Potassium [Moles/Vol]4.1 mmol/LNormal3.5-5.1The [facility] Comment on above:Performed By: #### HEPACUTE, HBCAB, HBSAB #### [facility] ,Sodium [Moles/Vol]135 mmol/ODaf412-026Gud [facility] Physician GroupComment on above:Performed By: #### HEPACUTE, HBCAB, HBSAB #### [facility] ,Urea nitrogen [Mass/Vol]47 mg/dLHigh7-25The [facility] Physician GroupComment on above:Performed By: #### HEPACUTE, HBCAB, HBSAB #### [facility] ,Glucose Poct Glucometerson 37-29-6421Jydsujp [Mass/Vol]259 mg/dLNormalThe [facility] Physician GroupComment on above:Result Comment: Random Glucose Reference Range is dependent on time and content of last meal. Glucose of more than 200 mg/dL in a nonstressed, ambulatory subject supports the diagnosis of Diabetes Mellitus. PERFORMED BY: [place] [address] PATHOLOGIST FIRE APPARATUS ENGINEER CARLOS BIRMINGHAM M.D.Performed By: #### HEPACUTE, HBCAB, HBSAB #### [facility] ,Dwlxrew2Pmz1: Cleaned MeterHCA Florida Starke Emergency Physician GroupComment on above: Result Comment: PERFORMED BY: [place] [address] PATHOLOGIST FIRE APPARATUS ENGINEER CARLOS BIRMINGHAM M.D.Performed By: #### GLULS #### Point of Care testing ,Glucose [Mass/Vol]144 mg/dLHCA Florida Starke Emergency Physician GroupComment on above: Result Comment: Random Glucose Reference Range is dependent on time and content of last meal. Glucose of more than 200 mg/dL in a nonstressed, ambulatory subject supports the diagnosis of Diabetes Mellitus.Performed By: #### GLULS #### Point of Care testing ,Glucose [Mass/Vol]157 mg/dLHCA Florida Starke Emergency Physician GroupComment on above: Result Comment: Random Glucose Reference Range is dependent on time and content of last meal. Glucose of more than 200 mg/dL in a nonstressed, ambulatory subject supports the diagnosis of Diabetes Mellitus. PERFORMED BY: [place] [address] PATHOLOGIST FIRE APPARATUS ENGINEER CARLOS BIRMINGHAM M.D.Performed By: #### HEPACUTE, HBCAB, HBSAB #### [facility] ,Glucose [Mass/Vol]104 mg/dLHCA Florida Starke Emergency Physician GroupComment on above: Result Comment: Random Glucose Reference Range is dependent on time and content of last meal. Glucose of more than 200 mg/dL in a nonstressed, ambulatory subject supports the diagnosis of Diabetes Mellitus. PERFORMED BY: [place] [address] PATHOLOGIST FIRE APPARATUS ENGINEER CARLOS BIRMINGHAM M.D.Performed By: #### HEPACUTE, HBCAB, HBSAB #### [facility] ,Glucose Poct Glucometerson 45-51-1050Fcdctod [Mass/Vol]184 mg/dLHCA Florida Starke Emergency Physician GroupComment on above:Result Comment: Random Glucose Reference Range is dependent on time and content of last meal. Glucose of more than 200 mg/dL in a nonstressed, ambulatory subject supports the diagnosis of Diabetes Mellitus. PERFORMED BY: [place] [address] PATHOLOGIST FIRE APPARATUS ENGINEER CARLOS BIRMINGHAM M.D.Performed By: #### HEPACUTE, HBCAB, HBSAB #### [facility] ,Gafdzhj5Pqc2: Cleaned MeterHCA Florida Starke Emergency Physician GroupComment on above: Result Comment: PERFORMED BY: [place] [address] PATHOLOGIST FIRE APPARATUS ENGINEER CARLOS BIRMINGHAM M.D.Performed By: #### HEPACUTE, HBCAB, HBSAB #### [facility] ,Glucose [Mass/Vol]209 mg/dLHCA Florida Starke Emergency Physician GroupComment on above: Result Comment: Random Glucose Reference Range is dependent on time and content of last meal. Glucose of more than 200 mg/dL in a nonstressed, ambulatory subject supports the diagnosis of Diabetes Mellitus.Performed By: #### HEPACUTE, HBCAB, HBSAB #### [facility] ,Dcoqmyu0Apb3: Cleaned MeterHCA Florida Starke Emergency Physician GroupComment on above: Result Comment: PERFORMED BY: [place] [address] PATHOLOGIST FIRE APPARATUS ENGINEER CARLOS BIRMINGHAM M.D.Performed By: #### GLULS #### Point of Care testing ,Glucose [Mass/Vol]212 mg/dLHCA Florida Starke Emergency Physician GroupComment on above: Result Comment: Random Glucose Reference Range is dependent on time and content of last meal. Glucose of more than 200 mg/dL in a nonstressed, ambulatory subject supports the diagnosis of Diabetes Mellitus.Performed By: #### GLULS #### Point of Care testing ,Glucose [Mass/Vol]170 mg/dLNoFrye Regional Medical Center Physician GroupComment on above: Result Comment: Random Glucose Reference Range is dependent on time and content of last meal. Glucose of more than 200 mg/dL in a nonstressed, ambulatory subject supports the diagnosis of Diabetes Mellitus. PERFORMED BY: [place] [address] PATHOLOGIST FIRE APPARATUS ENGINEER CARLOS BIRMINGHAM M.D.Performed By: #### HEPACUTE, HBCAB, HBSAB #### [facility] ,Glucose Poct Glucometerson 32-61-6793Mmnfurs [Mass/Vol]302 mg/dLNoFrye Regional Medical Center Physician GroupComment on above:Result Comment: Random Glucose Reference Range is dependent on time and content of last meal. Glucose of more than 200 mg/dL in a nonstressed, ambulatory subject supports the diagnosis of Diabetes Mellitus. PERFORMED BY: [place] [address] PATHOLOGIST FIRE APPARATUS ENGINEER CARLOS BIRMINGHAM M.D.Performed By: #### HEPACUTE, HBCAB, HBSAB #### [facility] ,Glucose [Mass/Vol]146 mg/dLNoFrye Regional Medical Center Physician GroupComment on above: Result Comment: Random Glucose Reference Range is dependent on time and content of last meal. Glucose of more than 200 mg/dL in a nonstressed, ambulatory subject supports the diagnosis of Diabetes Mellitus. PERFORMED BY: [place] [address] PATHOLOGIST FIRE APPARATUS ENGINEER CARLOS BIRMINGHAM M.D.Performed By: #### GLULS #### Point of Care testing ,Glucose [Mass/Vol]250 mg/dLNoFrye Regional Medical Center Physician GroupComment on above: Result Comment: Random Glucose Reference Range is dependent on time and content of last meal. Glucose of more than 200 mg/dL in a nonstressed, ambulatory subject supports the diagnosis of Diabetes Mellitus. PERFORMED BY: [place] [id number] PATHOLOGIST FIRE APPARATUS ENGINEER CARLOS BIRMINGHAM M.D.Performed By: #### GLULS #### Point of Care testing ,Glucose [Mass/Vol]126 mg/dLNormalThe [facility] Physician GroupComment on above: Result Comment: Random Glucose Reference Range is dependent on time and content of last meal. Glucose of more than 200 mg/dL in a nonstressed, ambulatory subject supports the diagnosis of Diabetes Mellitus. PERFORMED BY: [place] [address] PATHOLOGIST FIRE APPARATUS ENGINEER CARLOS BIRMINGHAM M.D.Performed By: #### GLULS #### Point of Care testing ,Renal Function Panelon 25-89-8719Lrzsmpc [Mass/Vol]3.4 g/dLLow3.5-5.7The [facility] Physician GroupComment on above:Performed By: #### RENAL, MG #### [place] [address] USAAnion gap [Moles/Vol]15.3 mmol/LHigh6.0-15.0The [facility] Physician GroupComment on above:Performed By: #### RENAL, MG #### [place] [address] USACalcium [Mass/Vol]9.4 mg/dLNormal8.6-10.3The [facility] Physician GroupComment on above:Performed By: #### RENAL, MG #### [place] [address] USAChloride [Moles/Vol]95 mmol/IVat68-354Och [facility] Physician GroupComment on above:Performed By: #### RENAL, MG #### [place] [address] USACO2 [Moles/Vol]27.6 mmol/DSleett42.0-31.0The [facility] Physician GroupComment on above:Performed By: #### RENAL, MG #### [place] [address] USACreatinine [Mass/Vol]5.49 mg/dLHigh0.70-1.30The [facility] Physician GroupComment on above:Performed By: #### RENAL, MG #### [place] [address] USACreatinine Clr Calc Vvcaioyo22.47NormalThe [facility] Physician GroupComment on above:Result Comment: PERFORMED BY: [place] [address] PATHOLOGIST FIRE APPARATUS ENGINEER CARLOS BIRMINGHAM M.D.Performed By: #### RENAL, MG #### [place] [address] USAGFR/1.73 sq M.predicted MDRD (S/P/Bld) [Vol rate/Area] 10.890 mL/min/{1.73_m2}NormalThe [facility] Physician GroupComment on above: Performed By: #### RENAL, MG #### [place] [address] USAGlucose [Mass/Vol]205 mg/kVJonx12-852Tid [facility] Physician GroupComment on above:Result Comment: Random Glucose Reference Range is dependent on time and content of last meal. Glucose of more than 200 mg/dL in a nonstressed, ambulatory subject supports the diagnosis of Diabetes Mellitus. ADA recommended reference rangePerformed By: #### RENAL, MG #### [place] [address] USAPhosphate [Mass/Vol]4.8 mg/dLHigh2.5-4.5The [facility] Physician GroupComment on above:Performed By: #### RENAL, MG #### [place] [address] USAPotassium [Moles/Vol]3.9 mmol/LNormal3.5-5.1The [facility] Physician GroupComment on above:Performed By: #### RENAL, MG #### [place] [address] USASodium [Moles/Vol]134 mmol/HSzu979-686Kvt [facility] Physician GroupComment on above:Performed By: #### RENAL, MG #### [place] [address] USAUrea nitrogen [Mass/Vol]42 mg/dLHigh7-25The [facility] Physician GroupComment on above:Performed By: #### RENAL, MG #### [facility] [address] [id number] USAComplete Blood Count Auto Diffon 14-83-3694Vefjvlvse (Bld) [#/Vol]0.1 10*3/uLNormal0.0-0.2The [facility] Physician GroupComment on above: Result Comment: PERFORMED BY: [facility] [address] [id number] PATHOLOGIST FIRE APPARATUS ENGINEER CARLOS BIRMINGHAM M.D.Performed By: #### HEPACUTE, HBCAB, HBSAB #### [facility] ,Basophils/100 WBC (Bld)0.8 %Normal.The [facility] Physician GroupComment on above:Performed By: #### HEPACUTE, HBCAB, HBSAB #### [facility] ,Eosinophils (Bld) [#/Vol]0.4 10*3/uLNormal0.0-0.45The [facility] Comment on above:Performed By: #### HEPACUTE, HBCAB, HBSAB #### [facility] ,Eosinophils/100 WBC (Bld)4.5 %Normal.The [facility] Physician GroupComment on above:Performed By: #### HEPACUTE, HBCAB, HBSAB #### [facility] ,Erythrocyte distribution width (RBC) [Ratio]14.2 %Uoudnj05.0-14.8The [facility] Physician GroupComment on above:Performed By: #### HEPACUTE, HBCAB, HBSAB #### [facility] ,Hematocrit (Bld) [Volume fraction]28.1 %Low38.8-50.0The [facility] Physician GroupComment on above:Performed By: #### HEPACUTE, HBCAB, HBSAB #### [facility] ,Hemoglobin (Bld) [Mass/Vol]9.1 g/dLLow13.0-17.0[facility] Comment on above:Performed By: #### HEPACUTE, HBCAB, HBSAB #### [facility] ,Lymphocytes (Bld) [#/Vol]1.8 10*3/uLNormal1.00-4.8[facility] Comment on above:Performed By: #### HEPACUTE, HBCAB, HBSAB #### [facility] ,Lymphocytes/100 WBC (Bld)19.4 %Normal.The [facility] Physician GroupComment on above:Performed By: #### HEPACUTE, HBCAB, HBSAB #### [facility] ,MCH (RBC) [Entitic mass]28.6 aiQzwurt27.5-35.2The [facility] Comment on above:Performed By: #### HEPACUTE, HBCAB, HBSAB #### [facility] ,MCV (RBC) [Entitic vol]88.5 xUUtahch52.5-101The [facility] Comment on above:Performed By: #### HEPACUTE, HBCAB, HBSAB #### [facility] ,Mean Corpuscular HGB Conc32.3 g/dLLow32.5-35.6The [facility] Comment on above:Performed By: #### HEPACUTE, HBCAB, HBSAB #### [facility] ,Monocytes (Bld) [#/Vol]1.4 10*3/uLHigh0.0-0.8[facility] Comment on above:Performed By: #### HEPACUTE, HBCAB, HBSAB #### [facility] ,Monocytes/100 WBC (Bld)15.2 %Normal.The [facility] Physician GroupComment on above:Performed By: #### HEPACUTE, HBCAB, HBSAB #### [facility] ,Neutrophils (Bld) [#/Vol]5.5 10*3/uLNormal1.8-7.7The [facility] Comment on above:Performed By: #### HEPACUTE, HBCAB, HBSAB #### [facility] ,Neutrophils/100 WBC (Bld)60.1 %Normal.The [facility] Physician GroupComment on above:Performed By: #### HEPACUTE, HBCAB, HBSAB #### [facility] ,NRBC%0.1 /100{WBC}Normal0-0.5The [facility] Physician GroupComment on above: Performed By: #### HEPACUTE, HBCAB, HBSAB #### [facility] ,Platelet mean volume (Bld) [Entitic vol]6.4 fLLow6.6-10.1The [facility] Physician GroupComment on above:Performed By: #### HEPACUTE, HBCAB, HBSAB #### [facility] ,Platelets (Bld) [#/Vol]246 10*3/rGQnqbgw769-369Gip [facility] Comment on above:Performed By: #### HEPACUTE, HBCAB, HBSAB #### [facility] ,RBC (Bld) [#/Vol]3.18 10*6/uLLow3.90-5.60The [facility] Physician GroupComment on above:Performed By: #### HEPACUTE, HBCAB, HBSAB #### [facility] ,WBC (Bld) [#/Vol]9.2 10*3/uLNormal4.1-10.5The [facility] Physician GroupComment on above:Performed By: #### HEPACUTE, HBCAB, HBSAB #### [facility] ,White Blood Count9.2 [CFU]/mLNormal4.1-10.5The [facility] Physician GroupComment on above:Performed By: #### HEPACUTE, HBCAB, HBSAB #### [facility] ,Comprehensive Metabolic Panelon [id number] [Mass/Vol]3.1 g/dLLow3.5-5.7 The [facility] Physician GroupComment on above:Performed By: #### HEPACUTE, HBCAB, HBSAB #### [facility] ,Albumin/Globulin [Mass ratio]1.0 {ratio}NormalThe [facility] Comment on above:Performed By: #### HEPACUTE, HBCAB, HBSAB #### [facility] ,ALP [Catalytic activity/Vol]59 U/YBajnut96-275Zqa [facility] Comment on above:Performed By: #### HEPACUTE, HBCAB, HBSAB #### [facility] ,ALT [Catalytic activity/Vol]3 U/LLow7-52The [facility] Physician GroupComment on above:Performed By: #### HEPACUTE, HBCAB, HBSAB #### [facility] ,Anion gap [Moles/Vol]12.1 mmol/LNormal6.0-15.0The [facility] Comment on above:Performed By: #### HEPACUTE, HBCAB, HBSAB #### [facility] ,AST [Catalytic activity/Vol]21 U/YXqvvnq62-45Exm [facility] Comment on above:Performed By: #### HEPACUTE, HBCAB, HBSAB #### [facility] ,Bilirubin [Mass/Vol]0.7 mg/dLNormal0.3-1.0The [facility] Physician GroupComment on above:Performed By: #### HEPACUTE, HBCAB, HBSAB #### [facility] ,Calcium [Mass/Vol]8.9 mg/dLNormal8.6-10.3The [facility] Physician GroupComment on above:Performed By: #### HEPACUTE, HBCAB, HBSAB #### [facility] ,Chloride [Moles/Vol]99 mmol/VXamitd98-380Xau [facility] Physician GroupComment on above:Performed By: #### HEPACUTE, HBCAB, HBSAB #### [facility] ,CO2 [Moles/Vol]27.7 mmol/WJbwyqw50.0-31.0The [facility] Physician GroupComment on above:Performed By: #### HEPACUTE, HBCAB, HBSAB #### [facility] ,Creatinine [Mass/Vol]4.23 mg/dLHigh0.70-1.30The [facility] Comment on above:Performed By: #### HEPACUTE, HBCAB, HBSAB #### [facility] ,Creatinine Clr Calc Dvovuhfq65.76NoFrye Regional [facility] Center Physician GroupComment on above:Performed By: #### HEPACUTE, HBCAB, HBSAB #### [facility] ,GFR/1.73 sq M.predicted MDRD (S/P/Bld) [Vol rate/Area]14.891 mL/min/{1.73_m2} NormalThe [facility] Physician GroupComment on above:Performed By: #### HEPACUTE, HBCAB, HBSAB #### [facility] ,Globulin (S) [Mass/Vol]3.1 g/dLNoFrye Regional Medical Center Physician GroupComment on above:Performed By: #### HEPACUTE, HBCAB, HBSAB #### [facility] ,Glucose [Mass/Vol]143 mg/pSEfao43-135Rem [facility] Physician GroupComment on above:Result Comment: Random Glucose Reference Range is dependent on time and content of last meal. Glucose of more than 200 mg/dL in a nonstressed, ambulatory subject supports the diagnosis of Diabetes Mellitus. ADA recommended reference rangePerformed By: #### HEPACUTE, HBCAB, HBSAB #### [facility] ,Potassium [Moles/Vol]3.8 mmol/LNormal3.5-5.1The [facility] Comment on above:Performed By: #### HEPACUTE, HBCAB, HBSAB #### [facility] ,Protein [Mass/Vol]6.2 g/dLLow6.4-8.9The [facility] Physician GroupComment on above:Performed By: #### HEPACUTE, HBCAB, HBSAB #### [facility] ,Sodium [Moles/Vol]135 mmol/UAsq580-878Hfl [facility] Physician GroupComment on above:Performed By: #### HEPACUTE, HBCAB, HBSAB #### [facility] ,Urea nitrogen [Mass/Vol]33 mg/dLStevens Clinic HospitalSt. Luke's [facility] Physician GroupComment on above:Performed By: #### HEPACUTE, HBCAB, HBSAB #### [facility] ,Glucose Poct Glucometerson 76-34-4935Lgjgsqy [Mass/Vol]272 mg/dLNoFrye Regional Medical Center Physician GroupComment on above:Result Comment: Random Glucose Reference Range is dependent on time and content of last meal. Glucose of more than 200 mg/dL in a nonstressed, ambulatory subject supports the diagnosis of Diabetes Mellitus. PERFORMED BY: [place] [address] PATHOLOGIST FIRE APPARATUS ENGINEER CARLOS BIRMINGHAM M.D.Performed By: #### GLULS #### Point of Care testing ,Glucose [Mass/Vol]262 mg/dLHCA Florida Starke Emergency Physician [facility] HospitalComment on above: Result Comment: Random Glucose Reference Range is dependent on time and content of last meal. Glucose of more than 200 mg/dL in a nonstressed, ambulatory subject supports the diagnosis of Diabetes Mellitus. PERFORMED BY: [place] [address] PATHOLOGIST FIRE APPARATUS ENGINEER CARLOS BIRMINGHAM M.D.Performed By: #### RENAL, MG #### [place] [address] USAGlucose [Mass/Vol]195 mg/dLHCA Florida Starke Emergency Physician GroupComment on above:Result Comment: Random Glucose Reference Range is dependent on time and content of last meal. Glucose of more than 200 mg/dL in a nonstressed, ambulatory subject supports the diagnosis of Diabetes Mellitus. PERFORMED BY: [place] [address] PATHOLOGIST FIRE APPARATUS ENGINEER CARLOS BIRMINGHAM M.D.Performed By: #### RENAL, MG #### [place] [address] USAGlucose [Mass/Vol]170 mg/dLNoFrye Regional Medical Center Physician GroupComment on above:Result Comment: Random Glucose Reference Range is dependent on time and content of last meal. Glucose of more than 200 mg/dL in a nonstressed, ambulatory subject supports the diagnosis of Diabetes Mellitus. PERFORMED BY: [address] [address] [place] [address] PATHOLOGIST FIRE APPARATUS ENGINEER CARLOS BIRMINGHAM M.D.Performed By: #### GLULS #### Point of Care testing ,Prealbuminon 76-06-3878Fdnocbrqxx [Mass/Vol]16.6 mg/dLLow17.0-34.0The [facility] Physician GroupComment on above:Result Comment: PERFORMED BY: [facility] [address] [place] [address] PATHOLOGIST FIRE APPARATUS ENGINEER CARLOS BIRMINGHAM M.D.Performed By: #### HEPACUTE, HBCAB, HBSAB #### [facility] ,Comprehensive Metabolic Panelon 95-36-4081Obvrjsh [Mass/Vol]3.1 g/dLLow3.5-5.7 The [facility] Physician GroupComment on above:Performed By: #### HEPACUTE, HBCAB, HBSAB #### [facility] ,Albumin/Globulin [Mass ratio]0.9 {ratio}NormalThe [facility] Comment on above:Performed By: #### HEPACUTE, HBCAB, HBSAB #### [facility] ,ALP [Catalytic activity/Vol]68 U/QCkygcr82-813Ste [facility] Comment on above:Performed By: #### HEPACUTE, HBCAB, HBSAB #### [facility] ,ALT [Catalytic activity/Vol]U/LLow7-52The [facility] Physician GroupComment on above:Performed By: #### HEPACUTE, HBCAB, HBSAB #### [facility] ,Anion gap [Moles/Vol]15.4 mmol/LHigh6.0-15.0The [facility] Comment on above:Performed By: #### HEPACUTE, HBCAB, HBSAB #### [facility] ,AST [Catalytic activity/Vol]22 U/RPantnc81-56Ndz [facility] Comment on above:Performed By: #### HEPACUTE, HBCAB, HBSAB #### [facility] ,Bilirubin [Mass/Vol]0.5 mg/dLNormal0.3-1.0[facility] Physician GroupComment on above:Performed By: #### HEPACUTE, HBCAB, HBSAB #### [facility] ,Calcium [Mass/Vol]8.9 mg/dLNormal8.6-10.3The [facility] Physician GroupComment on above:Performed By: #### HEPACUTE, HBCAB, HBSAB #### [facility] ,Chloride [Moles/Vol]98 mmol/HPwkpkt58-221Cfy [facility] Physician GroupComment on above:Performed By: #### HEPACUTE, HBCAB, HBSAB #### [facility] ,CO2 [Moles/Vol]25.5 mmol/AOlpuax52.0-31.0The [facility] Physician GroupComment on above:Performed By: #### HEPACUTE, HBCAB, HBSAB #### [facility] ,Creatinine [Mass/Vol]6.08 mg/dLHigh0.70-1.30The [facility] Comment on above:Performed By: #### HEPACUTE, HBCAB, HBSAB #### [facility] ,Creatinine Clr Calc Ddzgjhsy81.59NoFrye Regional [facility] Center Physician GroupComment on above:Performed By: #### HEPACUTE, HBCAB, HBSAB #### [facility] ,GFR/1.73 sq M.predicted MDRD (S/P/Bld) [Vol rate/Area]9.635 mL/min/{1.73_m2} NormalHollywood Medical Center Physician GroupComment on above:Performed By: #### HEPACUTE, HBCAB, HBSAB #### [facility] ,Globulin (S) [Mass/Vol]3.5 g/dLNoFrye Regional Medical Center Physician GroupComment on above:Performed By: #### HEPACUTE, HBCAB, HBSAB #### [facility] ,Glucose [Mass/Vol]108 mg/vLQlaq96-339Mwf [facility] Physician GroupComment on above:Result Comment: Random Glucose Reference Range is dependent on time and content of last meal. Glucose of more than 200 mg/dL in a nonstressed, ambulatory subject supports the diagnosis of Diabetes Mellitus. ADA recommended reference rangePerformed By: #### HEPACUTE, HBCAB, HBSAB #### [facility] ,Potassium [Moles/Vol]3.9 mmol/LNormal3.5-5.1The [facility] Comment on above:Performed By: #### HEPACUTE, HBCAB, HBSAB #### [facility] ,Protein [Mass/Vol]6.6 g/dLNormal6.4-8.9The [facility] Physician GroupComment on above:Performed By: #### HEPACUTE, HBCAB, HBSAB #### [facility] ,Sodium [Moles/Vol]135 mmol/LYsi330-386Gsn [facility] Physician GroupComment on above:Performed By: #### HEPACUTE, HBCAB, HBSAB #### [facility] ,Urea nitrogen [Mass/Vol]54 mg/dLHigh7-25The [facility] Physician GroupComment on above:Performed By: #### HEPACUTE, HBCAB, HBSAB #### [facility] ,Diff and CBCon 57-80-9710Kvzkwfvhuasj Ql (Bld)ModerateNormalThe [facility] Physician GroupComment on above:Performed By: #### HEPACUTE, HBCAB, HBSAB #### [facility] ,Band form neutrophils/100 WBC (Bld)1 %Normal0-5The [facility] Comment on above:Performed By: #### HEPACUTE, HBCAB, HBSAB #### [facility] ,Eosinophils/100 WBC (Bld)8 %High1-3The [facility] Physician GroupComment on above:Performed By: #### HEPACUTE, HBCAB, HBSAB #### [facility] ,Erythrocyte distribution width (RBC) [Ratio]14.1 %Eaypkw95.0-14.8The [facility] Physician GroupComment on above:Performed By: #### HEPACUTE, HBCAB, HBSAB #### [facility] ,Hematocrit (Bld) [Volume fraction]29.7 %Low38.8-50.0The [facility] Physician GroupComment on above:Performed By: #### HEPACUTE, HBCAB, HBSAB #### [facility] ,Hemoglobin (Bld) [Mass/Vol]9.9 g/dLLow13.0-17.0The [facility] Comment on above:Performed By: #### HEPACUTE, HBCAB, HBSAB #### [facility] ,HypochromasiaSlightNormalThe [facility] Physician GroupComment on above: Performed By: #### HEPACUTE, HBCAB, HBSAB #### [facility] ,Lymphocytes/100 WBC (Bld)10 %Mxy08-05Wje [facility] Physician GroupComment on above:Performed By: #### HEPACUTE, HBCAB, HBSAB #### [facility] ,MCH (RBC) [Entitic mass]29.1 jcEacncc59.5-35.2The [facility] Comment on above:Performed By: #### HEPACUTE, HBCAB, HBSAB #### [facility] ,MCV (RBC) [Entitic vol]87.6 pQNgbtgo76.5-101The [facility] Comment on above:Performed By: #### HEPACUTE, HBCAB, HBSAB #### [facility] ,Mean Corpuscular HGB Conc33.3 g/nUNockwu81.5-35.6The [facility] Comment on above:Performed By: #### HEPACUTE, HBCAB, HBSAB #### [facility] ,Metamyelocytes3 %High0-0The [facility] Physician GroupComment on above:Performed By: #### HEPACUTE, HBCAB, HBSAB #### [facility] ,MicrocytosisSNovant Health Kernersville Medical Center Physician GroupComment on above:Performed By: #### HEPACUTE, HBCAB, HBSAB #### [facility] ,Monocytes/100 WBC (Bld)7 %Normal2-11The [facility] Physician GroupComment on above:Performed By: #### HEPACUTE, HBCAB, HBSAB #### [facility] ,Platelet EstimateNormalNormalHCA [facility] Emergency Physician GroupComment on above:Performed By: #### HEPACUTE, HBCAB, HBSAB #### [facility] ,Platelet mean volume (Bld) [Entitic vol]6.7 fLNormal6.6-10.1The [facility] Physician GroupComment on above:Performed By: #### HEPACUTE, HBCAB, HBSAB #### [facility] ,Platelet MorphologyNormalNormalHCA [facility] Emergency Physician GroupComment on above:Result Comment: PERFORMED BY: [address] [place] [address] PATHOLOGIST FIRE APPARATUS ENGINEER CARLOS BIRMINGHAM M.D.Performed By: #### HEPACUTE, HBCAB, HBSAB #### [facility] ,Platelets (Bld) [#/Vol]237 10*3/yQQvaeot203-363Rbr [facility] Comment on above:Performed By: #### HEPACUTE, HBCAB, HBSAB #### [facility] ,PoikilocytosisSNovant Health Kernersville Medical Center Physician GroupComment on above: Performed By: #### HEPACUTE, HBCAB, HBSAB #### [facility] ,PolychromasiaSNovant Health Kernersville Medical Center Physician GroupComment on above: Performed By: #### HEPACUTE, HBCAB, HBSAB #### [facility] ,RBC (Bld) [#/Vol]3.39 10*6/uLLow3.90-5.60The [facility] HospitalComment on above:Performed By: #### HEPACUTE, HBCAB, HBSAB #### [facility] ,Segmented neutrophils/100 WBC (Bld)72 %Skic13-06OskHollywood Medical Center [facility]ician [facility] Comment on above:Performed By: #### HEPACUTE, HBCAB, HBSAB #### [facility] ,WBC (Bld) [#/Vol]10.1 10*3/uLNormal4.1-10.5The [facility] HospitalComment on above:Performed By: #### HEPACUTE, HBCAB, HBSAB #### [facility] ,White Blood Count10.1 [CFU]/mLNormal4.1-10.5The [facility] Comment on above:Performed By: #### HEPACUTE, HBCAB, HBSAB #### [facility] ,Glucose Poct Glucometerson 65-61-4901Hrkhxmh [Mass/Vol]187 mg/dLNoFrye Regional Medical Center Physician Trace Regional HospitalComment on above:Result Comment: Random Glucose Reference Range is dependent on time and content of last meal. Glucose of more than 200 mg/dL in a nonstressed, ambulatory subject supports the diagnosis of Diabetes Mellitus. PERFORMED BY: [place] [address] PATHOLOGIST FIRE APPARATUS ENGINEER CARLOS BIRMINGHAM M.D.Performed By: #### GLULS #### Point of Care testing ,Glucose [Mass/Vol]269 mg/dLHCA Florida Starke Emergency Physician Trace Regional HospitalComment on above: Result Comment: Random Glucose Reference Range is dependent on time and content of last meal. Glucose of more than 200 mg/dL in a nonstressed, ambulatory subject supports the diagnosis of Diabetes Mellitus. PERFORMED BY: [place] [address] PATHOLOGIST FIRE APPARATUS ENGINEER CARLOS BIRMINGHAM M.D.Performed By: #### RENAL, MG #### [place] [address] AIDMzodddz6Qqh1: Cleaned MeterNoFrye Regional Medical Center Physician GroupComment on above:Result Comment: PERFORMED BY: [address] [place] [address] PATHOLOGIST FIRE APPARATUS ENGINEER CARLOS BIRMINGHAM M.D.Performed By: #### GLULS #### Point of Care testing ,Glucose [Mass/Vol]109 mg/dLHCA Florida Starke Emergency Physician GroupComment on above: Result Comment: Random Glucose Reference Range is dependent on time and content of last meal. Glucose of more than 200 mg/dL in a nonstressed, ambulatory subject supports the diagnosis of Diabetes Mellitus.Performed By: #### GLULS #### Point of Care testing ,Glucose [Mass/Vol]109 mg/dLHCA Florida Starke Emergency Physician GroupComment on above: Result Comment: Random Glucose Reference Range is dependent on time and content of last meal. Glucose of more than 200 mg/dL in a nonstressed, ambulatory subject supports the diagnosis of Diabetes Mellitus. PERFORMED BY: [place] [address] PATHOLOGIST FIRE APPARATUS ENGINEER CARLOS BIRMINGHAM M.D.Performed By: #### GLULS #### Point of Care testing ,Magnesiumon 26-29-3116Lgjsvbyeq [Mass/Vol]2.6 mg/dLNormal1.9-2.7The [facility] Physician GroupComment on above:Result Comment: PERFORMED BY: [address] [place] [address] PATHOLOGIST FIRE APPARATUS ENGINEER CARLOS BIRMINGHAM M.D.Performed By: #### HEPACUTE, HBCAB, HBSAB #### [facility] ,A1C with Estimated Average Gluon 99-76-6782Wmgfvof [Mass/Vol]255 mg/dLHCA Florida Starke Emergency Physician GroupComment on above:Result Comment: PERFORMED BY: [address] [place] [address] PATHOLOGIST FIRE APPARATUS ENGINEER CARLOS BIRMINGHAM M.D.Performed By: #### HEPACUTE, HBCAB, HBSAB #### [facility] ,HbA1c (Bld) [Mass fraction]10.5 %High4.3-5.6The [facility] Comment on above:Result Comment: Increased risk for diabetes: 5.7 - 6.4 diabetes: >6.4 glycemic control for adults with diabetes: <7.0Performed By: #### HEPACUTE, HBCAB, HBSAB #### [facility] ,Comprehensive Metabolic Panelon 51-55-4656Rifygmn [Mass/Vol]3.1 g/dLLow3.5-5.7 The [facility] Physician GroupComment on above:Performed By: #### HEPACUTE, HBCAB, HBSAB #### [facility] ,Albumin/Globulin [Mass ratio]0.9 {ratio}NormalThe [facility] Comment on above:Performed By: #### HEPACUTE, HBCAB, HBSAB #### [facility] ,ALP [Catalytic activity/Vol]69 U/NWnahaw16-627Ise [facility] Comment on above:Performed By: #### HEPACUTE, HBCAB, HBSAB #### [facility] ,ALT [Catalytic activity/Vol]3 U/LLow7-52The [facility] Physician GroupComment on above:Performed By: #### HEPACUTE, HBCAB, HBSAB #### [facility] ,Anion gap [Moles/Vol]12.2 mmol/LNormal6.0-15.0The [facility] Comment on above:Performed By: #### HEPACUTE, HBCAB, HBSAB #### [facility] ,AST [Catalytic activity/Vol]21 U/COqnqsr97-15Jnq [facility] Comment on above:Performed By: #### HEPACUTE, HBCAB, HBSAB #### [facility] ,Bilirubin [Mass/Vol]0.6 mg/dLNormal0.3-1.0The [facility] Physician GroupComment on above:Performed By: #### HEPACUTE, HBCAB, HBSAB #### [facility] ,Calcium [Mass/Vol]8.9 mg/dLNormal8.6-10.3The [facility] Physician GroupComment on above:Performed By: #### HEPACUTE, HBCAB, HBSAB #### [facility] ,Chloride [Moles/Vol]95 mmol/ZQgd22-012Dyi [facility] Physician GroupComment on above:Performed By: #### HEPACUTE, HBCAB, HBSAB #### [facility] ,CO2 [Moles/Vol]30.5 mmol/DVlgtpq44.0-31.0The [facility] Physician GroupComment on above:Performed By: #### HEPACUTE, HBCAB, HBSAB #### [facility] ,Creatinine [Mass/Vol]5.57 mg/dLHigh0.70-1.30[facility] Comment on above:Performed By: #### HEPACUTE, HBCAB, HBSAB #### [facility] ,Creatinine Clr Calc Tsowjlxf86.11NoFrye Regional [facility] Center Physician GroupComment on above:Performed By: #### HEPACUTE, HBCAB, HBSAB #### [facility] ,GFR/1.73 sq M.predicted MDRD (S/P/Bld) [Vol rate/Area]10.703 mL/min/{1.73_m2} NormalThe [facility] Physician GroupComment on above:Performed By: #### HEPACUTE, HBCAB, HBSAB #### [facility] ,Globulin (S) [Mass/Vol]3.5 g/dLHCA Florida Starke Emergency Physician Trace Regional HospitalComment on above:Performed By: #### HEPACUTE, HBCAB, HBSAB #### [facility] ,Glucose [Mass/Vol]175 mg/wAHshq30-073Qqo [facility] Physician GroupComment on above:Result Comment: Random Glucose Reference Range is dependent on time and content of last meal. Glucose of more than 200 mg/dL in a nonstressed, ambulatory subject supports the diagnosis of Diabetes Mellitus. ADA recommended reference rangePerformed By: #### HEPACUTE, HBCAB, HBSAB #### [facility] ,Potassium [Moles/Vol]3.7 mmol/LNormal3.5-5.1The [facility] Comment on above:Performed By: #### HEPACUTE, HBCAB, HBSAB #### [facility] ,Protein [Mass/Vol]6.6 g/dLNormal6.4-8.9The [facility] Physician GroupComment on above:Performed By: #### HEPACUTE, HBCAB, HBSAB #### [facility] ,Sodium [Moles/Vol]134 mmol/RBrr280-092Tiw [facility] Physician GroupComment on above:Performed By: #### HEPACUTE, HBCAB, HBSAB #### [facility] ,Urea nitrogen [Mass/Vol]46 mg/dLHigh7-25The [facility] Physician GroupComment on above:Performed By: #### HEPACUTE, HBCAB, HBSAB #### [facility] ,Diff and CBCon 21-89-2031Kmmakvlirksh Ql (Bld)SlightNormalThe [facility] Physician GroupComment on above:Performed By: #### HEPACUTE, HBCAB, HBSAB #### [facility] ,Eosinophils/100 WBC (Bld)7 %High1-3The [facility] Physician GroupComment on above:Performed By: #### HEPACUTE, HBCAB, HBSAB #### [facility] ,Erythrocyte distribution width (RBC) [Ratio]14.7 %Jpgxep34.0-14.8The [facility] Physician GroupComment on above:Performed By: #### HEPACUTE, HBCAB, HBSAB #### [facility] ,Hematocrit (Bld) [Volume fraction]28.5 %Low38.8-50.0The [facility] Physician GroupComment on above:Performed By: #### HEPACUTE, HBCAB, HBSAB #### [facility] ,Hemoglobin (Bld) [Mass/Vol]9.4 g/dLLow13.0-17.0[facility] Comment on above:Performed By: #### HEPACUTE, HBCAB, HBSAB #### [facility] ,HypochromasiaSlightHCA Florida Starke Emergency Physician GroupComment on above: Performed By: #### HEPACUTE, HBCAB, HBSAB #### [facility] ,Lymphocytes/100 WBC (Bld)15 %Kqf61-11Yqq [facility] Physician GroupComment on above:Performed By: #### HEPACUTE, HBCAB, HBSAB #### [facility] ,MCH (RBC) [Entitic mass]29.1 hlDvwzwb16.5-35.2[facility] Comment on above:Performed By: #### HEPACUTE, HBCAB, HBSAB #### [facility] ,MCV (RBC) [Entitic vol]88.5 lVSfmrto09.5-101[facility] Comment on above:Performed By: #### HEPACUTE, HBCAB, HBSAB #### [facility] ,Mean Corpuscular HGB Conc32.8 g/zSPgzydy91.5-35.6ThSt. Luke's [facility] Comment on above:Performed By: #### HEPACUTE, HBCAB, HBSAB #### [facility] ,MicrocytosisSNovant Health Kernersville [facility] Physician GroupComment on above:Performed By: #### HEPACUTE, HBCAB, HBSAB #### [facility] ,Monocytes/100 WBC (Bld)13 %High2-11The [facility] Physician GroupComment on above:Performed By: #### HEPACUTE, HBCAB, HBSAB #### [facility] ,Myelocytes2 %High0-0The [facility] Physician GroupComment on above:Performed By: #### HEPACUTE, HBCAB, HBSAB #### [facility] ,Platelet EstimateNormalNormalHCA Florida Starke Emergency Physician GroupComment on above:Performed By: #### HEPACUTE, HBCAB, HBSAB #### [facility] ,Platelet mean volume (Bld) [Entitic vol]7.1 fLNormal6.6-10.1The [facility] Physician GroupComment on above:Performed By: #### HEPACUTE, HBCAB, HBSAB #### [facility] ,Platelet MorphologyNormalNormalHCA Florida Starke Emergency Physician GroupComment on above:Result Comment: PERFORMED BY: [facility] Raheem MAGAÑ[place] [address] PATHOLOGIST FIRE APPARATUS ENGINEER CARLOS BIRMINGHAM M.D.Performed By: #### HEPACUTE, HBCAB, HBSAB #### [facility] ,Platelets (Bld) [#/Vol]240 10*3/oXPlcptp302-514Zvz [facility] Comment on above:Performed By: #### HEPACUTE, HBCAB, HBSAB #### [facility] ,PolychromasiaSlightHCA Florida Starke Emergency Physician GroupComment on above: Performed By: #### HEPACUTE, HBCAB, HBSAB #### [facility] ,RBC (Bld) [#/Vol]3.22 10*6/uLLow3.90-5.60The [facility] Physician GroupComment on above:Performed By: #### HEPACUTE, HBCAB, HBSAB #### [facility] ,Segmented neutrophils/100 WBC (Bld)63 %Dkrlxk24-52Zai [facility] Comment on above:Performed By: #### HEPACUTE, HBCAB, HBSAB #### [facility] ,WBC (Bld) [#/Vol]9.9 10*3/uLNormal4.1-10.5The [facility] Physician GroupComment on above:Performed By: #### HEPACUTE, HBCAB, HBSAB #### [facility] ,White Blood Count9.9 [CFU]/mLNormal4.1-10.5The [facility] Physician GroupComment on above:Performed By: #### HEPACUTE, HBCAB, HBSAB #### [facility] ,Glucose Poct Glucometerson 55-07-0289Xyzsxwy [Mass/Vol]218 mg/dLNoFrye Regional Medical Center Physician GroupComment on above:Result Comment: Random Glucose Reference Range is dependent on time and content of last meal. Glucose of more than 200 mg/dL in a nonstressed, ambulatory subject supports the diagnosis of Diabetes Mellitus. PERFORMED BY: [place] [address] PATHOLOGIST FIRE APPARATUS ENGINEER CARLOS BIRMINGHAM M.D.Performed By: #### HEPACUTE, HBCAB, HBSAB #### [facility] ,Glucose [Mass/Vol]116 mg/dLNoFrye Regional Medical Center Physician GroupComment on above: Result Comment: Random Glucose Reference Range is dependent on time and content of last meal. Glucose of more than 200 mg/dL in a nonstressed, ambulatory subject supports the diagnosis of Diabetes Mellitus. PERFORMED BY: [place] [address] PATHOLOGIST FIRE APPARATUS ENGINEER CARLOS BIRMINGHAM M.D.Performed By: #### RENAL, MG #### [address] StreetGlucose [Mass/Vol]172 mg/dLNoFrye Regional Medical Center Physician GroupComment on above:Result Comment: Random Glucose Reference Range is dependent on time and content of last meal. Glucose of more than 200 mg/dL in a nonstressed, ambulatory subject supports the diagnosis of Diabetes Mellitus. PERFORMED BY: [place] [address] PATHOLOGIST FIRE APPARATUS ENGINEER CARLOS BIRMINGHAM M.D.Performed By: #### HEPACUTE, HBCAB, HBSAB #### [facility] ,Glucose [Mass/Vol]142 mg/dLNoFrye Regional Medical Center Physician GroupComment on above: Result Comment: Random Glucose Reference Range is dependent on time and content of last meal. Glucose of more than 200 mg/dL in a nonstressed, ambulatory subject supports the diagnosis of Diabetes Mellitus. PERFORMED BY: [address] [place] [address] PATHOLOGIST FIRE APPARATUS ENGINEER CARLOS BIRMINGHAM M.D.Performed By: #### GLULS #### Point of Care testing ,Magnesiumon 20-06-5490Xfdrhjpxo [Mass/Vol]2.3 mg/dLNormal1.9-2.7The [facility] Physician GroupComment on above:Result Comment: PERFORMED BY: [facility] [address] [place] [address] PATHOLOGIST FIRE APPARATUS ENGINEER CARLOS BIRMINGHAM M.D.Performed By: #### HEPACUTE, HBCAB, HBSAB #### [facility] ,Complete Blood Count Auto Diffon 07-67-1360Ryjcwxkkh (Bld) [#/Vol]0.1 10*3/uL Normal0.0-0.2The [facility] Physician GroupComment on above:Result Comment: PERFORMED BY: [facility] [address] [place] [address] PATHOLOGIST FIRE APPARATUS ENGINEER CARLOS BIRMINGHAM M.D.Performed By: #### GLULS #### Point of Care testing ,Basophils/100 WBC (Bld)0.9 %Normal.The [facility] Physician GroupComment on above:Performed By: #### GLULS #### Point of Care testing ,Eosinophils (Bld) [#/Vol]0.5 10*3/uLHigh0.0-0.45The [facility] Comment on above:Performed By: #### GLULS #### Point of Care testing ,Eosinophils/100 WBC (Bld)6.1 %Normal.The [facility] Physician GroupComment on above:Performed By: #### GLULS #### Point of Care testing ,Erythrocyte distribution width (RBC) [Ratio]14.7 %Qqypol26.0-14.8The [facility] Physician GroupComment on above:Performed By: #### GLULS #### Point of Care testing ,Hematocrit (Bld) [Volume fraction]25.9 %Low38.8-50.0The [facility] Physician GroupComment on above:Performed By: #### GLULS #### Point of Care testing ,Hemoglobin (Bld) [Mass/Vol]8.7 g/dLLow13.0-17.0[facility] Comment on above:Performed By: #### GLULS #### Point of Care testing ,Lymphocytes (Bld) [#/Vol]1.2 10*3/uLNormal1.00-4.8[facility] Comment on above:Performed By: #### GLULS #### Point of Care testing ,Lymphocytes/100 WBC (Bld)13.2 %Normal.The [facility] Physician GroupComment on above:Performed By: #### GLULS #### Point of Care testing ,MCH (RBC) [Entitic mass]29.5 crMpjowk08.5-35.2[facility] Comment on above:Performed By: #### GLULS #### Point of Care testing ,MCV (RBC) [Entitic vol]87.7 tMGrywfu26.5-101The [facility] Comment on above:Performed By: #### GLULS #### Point of Care testing ,Mean Corpuscular HGB Conc33.6 g/iDDmpbto37.5-35.6[facility] Comment on above:Performed By: #### GLULS #### Point of Care testing ,Monocytes (Bld) [#/Vol]1.0 10*3/uLHigh0.0-0.8[facility] Comment on above:Performed By: #### GLULS #### Point of Care testing ,Monocytes/100 WBC (Bld)11.6 %Normal.The [facility] Physician GroupComment on above:Performed By: #### GLULS #### Point of Care testing ,Neutrophils (Bld) [#/Vol]6.0 10*3/uLNormal1.8-7.7[facility] Comment on above:Performed By: #### GLULS #### Point of Care testing ,Neutrophils/100 WBC (Bld)68.2 %Normal.The [facility] Physician GroupComment on above:Performed By: #### GLULS #### Point of Care testing ,NRBC%0.0 /100{WBC}Normal0-0.5The [facility] Physician GroupComment on above: Performed By: #### GLULS #### Point of Care testing ,Platelet mean volume (Bld) [Entitic vol]8.2 fLNormal6.6-10.1[facility] Physician GroupComment on above:Performed By: #### GLULS #### Point of Care testing ,Platelets (Bld) [#/Vol]150 10*3/jKVwqafkkq006-636Vfr [facility] Comment on above:Performed By: #### GLULS #### Point of Care testing ,RBC (Bld) [#/Vol]2.96 10*6/uLLow3.90-5.60The [facility] Physician GroupComment on above:Performed By: #### GLULS #### Point of Care testing ,WBC (Bld) [#/Vol]8.7 10*3/uLNormal4.1-10.5The [facility] Physician GroupComment on above:Performed By: #### GLULS #### Point of Care testing ,White Blood Count8.7 [CFU]/mLNormal4.1-10.5The [facility] Physician GroupComment on above:Performed By: #### GLULS #### Point of Care testing ,Comprehensive Metabolic Panelon 44-36-1410Dncyxiv [Mass/Vol]2.8 g/dLLow3.5-5.7 The [facility] Physician GroupComment on above:Performed By: #### GLULS #### Point of Care testing ,Albumin/Globulin [Mass ratio]0.9 {ratio}NormalThe [facility] Comment on above:Performed By: #### GLULS #### Point of Care testing ,ALP [Catalytic activity/Vol]62 U/OLkznvk51-324Wzx [facility] Comment on above:Performed By: #### GLULS #### Point of Care testing ,ALT [Catalytic activity/Vol]U/LLow7-52The [facility] Physician GroupComment on above:Performed By: #### GLULS #### Point of Care testing ,Anion gap [Moles/Vol]17.2 mmol/LHigh6.0-15.0[facility] Comment on above:Performed By: #### GLULS #### Point of Care testing ,AST [Catalytic activity/Vol]20 U/LPjqphi84-04Bai [facility] Comment on above:Performed By: #### GLULS #### Point of Care testing ,Bilirubin [Mass/Vol]0.5 mg/dLNormal0.3-1.0The [facility] Physician GroupComment on above:Performed By: #### GLULS #### Point of Care testing ,Calcium [Mass/Vol]8.4 mg/dLLow8.6-10.3The [facility] Physician GroupComment on above:Performed By: #### GLULS #### Point of Care testing ,Chloride [Moles/Vol]96 mmol/AZqw42-247Bwf [facility] Physician GroupComment on above:Performed By: #### GLULS #### Point of Care testing ,CO2 [Moles/Vol]23.9 mmol/FEbqfqs15.0-31.0The [facility] Physician GroupComment on above:Performed By: #### GLULS #### Point of Care testing ,Creatinine [Mass/Vol]7.26 mg/dLHigh0.70-1.30[facility] Comment on above:Performed By: #### GLULS #### Point of Care testing ,Creatinine Clr Calc Pcalanbm54.82NoFrye Regional [facility] Center Physician GroupComment on above:Performed By: #### GLULS #### Point of Care testing ,GFR/1.73 sq M.predicted MDRD (S/P/Bld) [Vol rate/Area]7.787 mL/min/{1.73_m2} NormalHollywood Medical Center Physician GroupComment on above:Performed By: #### GLULS #### Point of Care testing ,Globulin (S) [Mass/Vol]3.2 g/dLHCA Florida Starke Emergency Physician GroupComment on above:Performed By: #### GLULS #### Point of Care testing ,Glucose [Mass/Vol]220 mg/hAOzaa80-962Hec [facility] Physician GroupComment on above:Result Comment: Random Glucose Reference Range is dependent on time and content of last meal. Glucose of more than 200 mg/dL in a nonstressed, ambulatory subject supports the diagnosis of Diabetes Mellitus. ADA recommended reference rangePerformed By: #### GLULS #### Point of Care testing ,Potassium [Moles/Vol]4.1 mmol/LNormal3.5-5.1[facility] Comment on above:Result Comment: Hemolysis is present at a level that could interfere with the result. Contact lab if redraw is requiredPerformed By: #### GLULS #### Point of Care testing ,Protein [Mass/Vol]6.0 g/dLLow6.4-8.9The [facility] HospitalComment on above:Performed By: #### GLULS #### Point of Care testing ,Sodium [Moles/Vol]133 mmol/FTdt708-196Qzw [facility] Physician GroupComment on above:Performed By: #### GLULS #### Point of Care testing ,Urea nitrogen [Mass/Vol]73 mg/dLHigh7-25The [facility] Physician GroupComment on above:Performed By: #### GLULS #### Point of Care testing ,Glucose Poct Glucometerson 84-78-0779Jdzqrpy [Mass/Vol]224 mg/dLNoMarietta Memorial HospitalComment on above:Result Comment: Random Glucose Reference Range is dependent on time and content of last meal. Glucose of more than 200 mg/dL in a nonstressed, ambulatory subject supports the diagnosis of Diabetes Mellitus. PERFORMED BY: [address] [place] [address] PATHOLOGIST FIRE APPARATUS ENGINEER CARLOS BIRMINGHAM M.D.Performed By: #### HEPACUTE, HBCAB, HBSAB #### [facility] ,Glucose [Mass/Vol]204 mg/dLCass Lake HospitalComment on above: Result Comment: Random Glucose Reference Range is dependent on time and content of last meal. Glucose of more than 200 mg/dL in a nonstressed, ambulatory subject supports the diagnosis of Diabetes Mellitus. PERFORMED BY: [address] [place] [place] [address] PATHOLOGIST FIRE APPARATUS ENGINEER CARLOS BIRMINGHAM M.D.Performed By: #### GLULS #### Point of Care testing ,Glucose [Mass/Vol]280 mg/dLHCA Florida Starke Emergency Physician GroupComment on above: Result Comment: Random Glucose Reference Range is dependent on time and content of last meal. Glucose of more than 200 mg/dL in a nonstressed, ambulatory subject supports the diagnosis of Diabetes Mellitus. PERFORMED BY: [place] [phone] PATHOLOGIST FIRE APPARATUS ENGINEER CARLOS BIRMINGHAM M.D.Performed By: #### RENAL #### [place] [address] USAMagnesiumon 21-74-8671Gvmcwkynb [Mass/Vol]2.7 mg/dLNormal 1.9-2.7The [facility] Physician GroupComment on above:Result Comment: PERFORMED BY: [place] [phone] PATHOLOGIST FIRE APPARATUS ENGINEER CARLOS BIRMINGHAM M.D.Performed By: #### GLULS #### Point of Care testing ,Glucose Poct Glucometerson 20-71-4731Kgdvmlu2Rmd1: Cleaned [facility]ician [facility] HospitalComment on above:Result Comment: PERFORMED BY: [place] [phone] PATHOLOGIST FIRE APPARATUS ENGINEER CARLOS BIRMINGHAM M.D.Performed By: #### HEPACUTE, HBCAB, HBSAB #### [facility] ,Glucose [Mass/Vol]250 mg/dLHCA Florida Starke Emergency Physician GroupComment on above: Result Comment: Random Glucose Reference Range is dependent on time and content of last meal. Glucose of more than 200 mg/dL in a nonstressed, ambulatory subject supports the diagnosis of Diabetes Mellitus.Performed By: #### HEPACUTE, HBCAB, HBSAB #### [facility] ,Glucose [Mass/Vol]261 mg/dLHCA Florida Starke Emergency Physician GroupComment on above: Result Comment: Random Glucose Reference Range is dependent on time and content of last meal. Glucose of more than 200 mg/dL in a nonstressed, ambulatory subject supports the diagnosis of Diabetes Mellitus. PERFORMED BY: [place] [id number] PATHOLOGIST FIRE APPARATUS ENGINEER CARLOS BIRMINGHAM M.D.Performed By: #### HEPACUTE, HBCAB, HBSAB #### [facility] ,Glucose [Mass/Vol]185 mg/dLNoFrye Regional Medical Center Physician GroupComment on above: Result Comment: Random Glucose Reference Range is dependent on time and content of last meal. Glucose of more than 200 mg/dL in a nonstressed, ambulatory subject supports the diagnosis of Diabetes Mellitus. PERFORMED BY: [place] [id number] PATHOLOGIST FIRE APPARATUS ENGINEER CARLOS BIRMINGHAM M.D.Performed By: #### HEPACUTE, HBCAB, HBSAB #### [facility] ,Glucose [Mass/Vol]114 mg/dLHCA Florida Starke Emergency Physician [facility] Regional HospitalComment on above: Result Comment: Random Glucose Reference Range is dependent on time and content of last meal. Glucose of more than 200 mg/dL in a nonstressed, ambulatory subject supports the diagnosis of Diabetes Mellitus. PERFORMED BY: [place] [id number] PATHOLOGIST FIRE APPARATUS ENGINEER CARLOS BIRMINGHAM M.D.Performed By: #### HEPACUTE, HBCAB, HBSAB #### [facility] ,Hemogram CBC Without Diffon 07-46-3764Yawcdqrktdm distribution width (RBC) [Ratio]14.7 %Lhpzmh78.0-14.8The [facility] SystemComment on above: Performed By: #### GLULS #### Point of Care testing ,Hematocrit (Bld) [Volume fraction]29.1 %Low38.8-50.0The [facility] SystemComment on above:Performed By: #### GLULS #### Point of Care testing ,Hemoglobin (Bld) [Mass/Vol]9.7 g/dLLow13.0-17.0[facility] Comment on above:Performed By: #### GLULS #### Point of Care testing ,MCH (RBC) [Entitic mass]28.9 hhYuvxgp21.5-35.2The [facility] Comment on above:Performed By: #### GLULS #### Point of Care testing ,MCV (RBC) [Entitic vol]87.0 aMVranwr44.5-101The [facility] Comment on above:Performed By: #### GLULS #### Point of Care testing ,Mean Corpuscular HGB Conc33.3 g/rJItyuhe17.5-35.6The [facility] Comment on above:Performed By: #### GLULS #### Point of Care testing ,Platelet mean volume (Bld) [Entitic vol]7.1 fLNormal6.6-10.1The [facility] HospitalComment on above:Result Comment: PERFORMED BY: [place] [address] [place] [address] PATHOLOGIST FIRE APPARATUS ENGINEER CARLOS BIRMINGHAM M.D.Performed By: #### GLULS #### Point of Care testing ,Platelets (Bld) [#/Vol]202 10*3/qAIofjwg204-736Gxx [facility] Comment on above:Performed By: #### GLULS #### Point of Care testing ,RBC (Bld) [#/Vol]3.34 10*6/uLLow3.90-5.60The [facility] HospitalComment on above:Performed By: #### GLULS #### Point of Care testing ,White Blood Count10.0 [CFU]/mLNormal4.1-10.5The [facility] Comment on above:Performed By: #### GLULS #### Point of Care testing ,Renal Function Panelon 97-01-2750Cohwtgz [Mass/Vol]3.1 g/dLLow3.5-5.7The [facility] Physician GroupComment on above:Performed By: #### GLULS #### Point of Care testing ,Anion gap [Moles/Vol]16.0 mmol/LHigh6.0-15.0The [facility] Comment on above:Performed By: #### GLULS #### Point of Care testing ,Calcium [Mass/Vol]8.8 mg/dLNormal8.6-10.3The [facility] Physician GroupComment on above:Performed By: #### GLULS #### Point of Care testing ,Chloride [Moles/Vol]95 mmol/RIjm44-445Ygx [facility] Physician GroupComment on above:Performed By: #### GLULS #### Point of Care testing ,CO2 [Moles/Vol]28.1 mmol/KGkblxt98.0-31.0The [facility] Physician GroupComment on above:Performed By: #### GLULS #### Point of Care testing ,Creatinine [Mass/Vol]6.35 mg/dLHigh0.70-1.30The [facility] Comment on above:Performed By: #### GLULS #### Point of Care testing ,Creatinine Clr Calc Krgtukru21.04NormalThe [facility] Physician GroupComment on above:Result Comment: PERFORMED BY: [address] [place] [address] PATHOLOGIST FIRE APPARATUS ENGINEER CARLOS BIRMINGHAM M.D.Performed By: #### GLULS #### Point of Care testing ,GFR/1.73 sq M.predicted MDRD (S/P/Bld) [Vol rate/Area]9.145 mL/min/{1.73_m2} NormalThe [facility] Physician GroupComment on above:Performed By: #### GLULS #### Point of Care testing ,Glucose [Mass/Vol]126 mg/aEUzxi99-736Xdn [facility] Physician GroupComment on above:Result Comment: Random Glucose Reference Range is dependent on time and content of last meal. Glucose of more than 200 mg/dL in a nonstressed, ambulatory subject supports the diagnosis of Diabetes Mellitus. ADA recommended reference rangePerformed By: #### GLULS #### Point of Care testing ,Phosphate [Mass/Vol]5.4 mg/dLHigh2.5-4.5The [facility] Physician GroupComment on above:Performed By: #### GLULS #### Point of Care testing ,Potassium [Moles/Vol]4.1 mmol/LNormal3.5-5.1The [facility] Comment on above:Performed By: #### GLULS #### Point of Care testing ,Sodium [Moles/Vol]135 mmol/NQcl420-825Gyt [facility] Physician GroupComment on above:Performed By: #### GLULS #### Point of Care testing ,Urea nitrogen [Mass/Vol]65 mg/dLHigh7-25The [facility] Physician GroupComment on above:Performed By: #### GLULS #### Point of Care testing ,Complete Blood Count Auto Diffon 14-50-5660Onhnmoaue (Bld) [#/Vol]0.0 10*3/uL Normal0.0-0.2The [facility] Physician GroupComment on above:Result Comment: PERFORMED BY: [place] [address] PATHOLOGIST FIRE APPARATUS ENGINEER CARLOS BIRMINGHAM M.D.Performed By: #### RENAL #### [place] [address] USABasophils/100 WBC (Bld)0.4 %Normal.The [facility] Physician GroupComment on above:Performed By: #### RENAL #### [place] [address] USAEosinophils (Bld) [#/Vol]0.3 10*3/uLNormal0.0-0.45The [facility] Physician GroupComment on above:Performed By: #### RENAL #### [place] [address] USAEosinophils/100 WBC (Bld)2.8 %Normal.The [facility] Physician GroupComment on above:Performed By: #### RENAL #### [place] [address] USAErythrocyte distribution width (RBC) [Ratio]15.3 %High 12.0-14.8The [facility] Physician GroupComment on above:Performed By: #### RENAL #### [place] [address] USAHematocrit (Bld) [Volume fraction]30.7 %Low38.8-50.0The [facility] Physician GroupComment on above:Performed By: #### RENAL #### [place] [address] USAHemoglobin (Bld) [Mass/Vol]10.1 g/dLLow13.0-17.0The [facility] Physician GroupComment on above:Performed By: #### RENAL #### [place] [address] USALymphocytes (Bld) [#/Vol]1.3 10*3/uLNormal1.00-4.8The [facility] Physician GroupComment on above:Performed By: #### RENAL #### [place] [address] USALymphocytes/100 WBC (Bld)12.8 %Normal.The [facility] Physician GroupComment on above:Performed By: #### RENAL #### [place] [address] USAMCH (RBC) [Entitic mass]28.9 hyZyvyyo55.5-35.2The [facility] Physician GroupComment on above:Performed By: #### RENAL #### [place] [address] USAMCV (RBC) [Entitic vol]87.7 sBHeqczx28.5-101The [facility] Physician GroupComment on above:Performed By: #### RENAL #### [place] [address] USAMean Corpuscular HGB Conc33.0 g/rWNcdjke60.5-35.6The [facility] Physician GroupComment on above:Performed By: #### RENAL #### [place] [address] USAMonocytes (Bld) [#/Vol]0.9 10*3/uLHigh0.0-0.8The [facility] Physician GroupComment on above:Performed By: #### RENAL #### [address] [address] USAMonocytes/100 WBC (Bld)9.1 %Normal.The [facility] Physician GroupComment on above:Performed By: #### RENAL #### [facility] [address] [place] [address] USANeutrophils (Bld) [#/Vol]7.4 10*3/uLNormal1.8-7.7The [facility] Physician GroupComment on above:Performed By: #### RENAL #### [facility] [address] [place] [address] USANeutrophils/100 WBC (Bld)74.9 %Normal.The [facility] Physician GroupComment on above:Performed By: #### RENAL #### [facility] [address] [place] [address] USANRBC%0.1 /100{WBC}Normal0-0.5The [facility] Comment on above:Performed By: #### RENAL #### [facility] [address] [place] [address] USAPlatelet mean volume (Bld) [Entitic vol]7.4 fLNormal 6.6-10.1The [facility] Physician GroupComment on above:Performed By: #### RENAL #### [facility] [address] [place] [address] USAPlatelets (Bld) [#/Vol]176 10*3/dFOnxzkm463-612Dke [facility] Physician GroupComment on above:Performed By: #### RENAL #### [facility] [facility] [address] [place] [address] USARBC (Bld) [#/Vol]3.50 10*6/uLLow3.90-5.60The [facility] Physician GroupComment on above:Performed By: #### RENAL #### [facility] [address] [place] [address] USAWBC (Bld) [#/Vol]10.0 10*3/uLNormal4.1-10.5The [facility] Physician GroupComment on above:Performed By: #### RENAL #### [facility] [address] [place] [address] USAWhite Blood Count10.0 [CFU]/mLNormal4.1-10.5The [facility] Physician GroupComment on above:Performed By: #### RENAL #### [facility] [address] [place] [address] USAGlucose Poct Glucometerson 21-12-8000Lnrpktw [Mass/Vol]175 mg/dLNoFrye Regional Medical Center Physician GroupComment on above:Result Comment: Random Glucose Reference Range is dependent on time and content of last meal. Glucose of more than 200 mg/dL in a nonstressed, ambulatory subject supports the diagnosis of Diabetes Mellitus. PERFORMED BY: [place] [id number] PATHOLOGIST FIRE APPARATUS ENGINEER CARLOS BIRMINGHAM M.D.Performed By: #### GLULS #### Point of Care testing ,Glucose [Mass/Vol]181 mg/dLNoFrye Regional Medical Center Physician GroupComment on above: Result Comment: Random Glucose Reference Range is dependent on time and content of last meal. Glucose of more than 200 mg/dL in a nonstressed, ambulatory subject supports the diagnosis of Diabetes Mellitus. PERFORMED BY: [place] [address] PATHOLOGIST FIRE APPARATUS ENGINEER CARLOS BIRMINGHAM M.D.Performed By: #### HEPACUTE, HBCAB, HBSAB #### [facility] ,Glucose [Mass/Vol]210 mg/dLNoFrye Regional Medical Center Physician Trace Regional HospitalComment on above: Result Comment: Random Glucose Reference Range is dependent on time and content of last meal. Glucose of more than 200 mg/dL in a nonstressed, ambulatory subject supports the diagnosis of Diabetes Mellitus. PERFORMED BY: [place] [address] PATHOLOGIST FIRE APPARATUS ENGINEER CARLOS BIRMINGHAM M.D.Performed By: #### RENAL #### [facility] [address] [place] [address] USAGlucose [Mass/Vol]194 mg/dLNoFrye Regional Medical Center Physician GroupComment on above:Result Comment: Random Glucose Reference Range is dependent on time and content of last meal. Glucose of more than 200 mg/dL in a nonstressed, ambulatory subject supports the diagnosis of Diabetes Mellitus. PERFORMED BY: [place] [id number] PATHOLOGIST FIRE APPARATUS ENGINEER CARLOS BIRMINGHAM M.D.Performed By: #### RENAL, MG #### [place] [address] USARenal Function Panelon 22-39-9731Jbvwnvu [Mass/Vol]3.1 g/dLLow3.5-5.7The [facility] Physician GroupComment on above:Performed By: #### HEPACUTE, HBCAB, HBSAB #### [facility] ,Anion gap [Moles/Vol]14.3 mmol/LNormal6.0-15.0[facility] Comment on above:Performed By: #### HEPACUTE, HBCAB, HBSAB #### [facility] ,Calcium [Mass/Vol]8.4 mg/dLLow8.6-10.3The [facility] Physician GroupComment on above:Performed By: #### HEPACUTE, HBCAB, HBSAB #### [facility] ,Chloride [Moles/Vol]95 mmol/AWxx47-308Sem [facility] Physician GroupComment on above:Performed By: #### HEPACUTE, HBCAB, HBSAB #### [facility] ,CO2 [Moles/Vol]28.8 mmol/LEqqvod31.0-31.0The [facility] Physician GroupComment on above:Performed By: #### HEPACUTE, HBCAB, HBSAB #### [facility] ,Creatinine [Mass/Vol]5.07 mg/dLHigh0.70-1.30[facility] Comment on above:Performed By: #### HEPACUTE, HBCAB, HBSAB #### [facility] ,Creatinine Clr Calc Tqqbwwcs12.49NormalThe [facility] Physician GroupComment on above:Result Comment: PERFORMED BY: [place] [address] PATHOLOGIST FIRE APPARATUS ENGINEER CARLOS BIRMINGHAM M.D.Performed By: #### HEPACUTE, HBCAB, HBSAB #### [facility] ,GFR/1.73 sq M.predicted MDRD (S/P/Bld) [Vol rate/Area]11.982 mL/min/{1.73_m2} NormalThe [facility] Physician GroupComment on above:Performed By: #### HEPACUTE, HBCAB, HBSAB #### [facility] ,Glucose [Mass/Vol]199 mg/wWXcai70-417Mdr [facility] Physician GroupComment on above:Result Comment: Random Glucose Reference Range is dependent on time and content of last meal. Glucose of more than 200 mg/dL in a nonstressed, ambulatory subject supports the diagnosis of Diabetes Mellitus. ADA recommended reference rangePerformed By: #### HEPACUTE, HBCAB, HBSAB #### [facility] ,Phosphate [Mass/Vol]5.7 mg/dLHigh2.5-4.5The [facility] Physician GroupComment on above:Performed By: #### HEPACUTE, HBCAB, HBSAB #### [facility] ,Potassium [Moles/Vol]4.1 mmol/LNormal3.5-5.1[facility] Comment on above:Performed By: #### HEPACUTE, HBCAB, HBSAB #### [facility] ,Sodium [Moles/Vol]134 mmol/AWhm410-021Ozt [facility] Physician GroupComment on above:Performed By: #### HEPACUTE, HBCAB, HBSAB #### [facility] ,Urea nitrogen [Mass/Vol]52 mg/dLHigh7-25The [facility] Physician GroupComment on above:Performed By: #### HEPACUTE, HBCAB, HBSAB #### [facility] ,XR hip RT min 2V(w/wo pelvis)*on 48-91-9759FA hip RT min 2V(w/wo pelvis)* [facility] Main [address] [place] [address] XRay Report Signed Patient: Rashard Lyman MR#: [id number] : 1960 Acct:[id number] Age/Sex: 64 / M ADM Date: 12/23/24 Loc: 4N Room: [address] [place] [address] Type: ADM IN Attending Dr: Dinesh Cervantes [...] Mckinney M.D. 12/26/2024 5:01 PM Dictation Location: [place] [address] Transcribed By: [facility] 12/26/24 170 Dictated By: Hector Mckinney II, MD 12/26/24 170 Signed By: 12/26/24 170[facility] Physician GroupXR wrist RT 2Von [id number] wrist RT 2V[facility] Main [address] [address] XRay Report Signed Patient: Rashard Lyman MR#: [id number] : 1960 Acct:[id number] Age/Sex: 64 / M ADM Date: 12/23/24 Loc: 4N Room: 5M6115-9 Type: ADM IN Attending Dr: Dinesh Cervantes [...] Mckinney M.D. 12/26/2024 5:00 PM Dictation Location: [place] [address] Transcribed By: [facility] 12/26/24 1700 Dictated By: Hector Mckinney II, MD 12/26/24 1659 Signed By: 12/26/24 170NoFrye [facility] Center Physician GroupComplete Blood Count Auto Diffon 87-90-7956Xihdkvlzs (Bld) [#/Vol]0.1 10*3/uLNormal0.0-0.2The [facility] Physician GroupComment on above:Result Comment: PERFORMED BY: [place] [address] PATHOLOGIST FIRE APPARATUS ENGINEER CARLOS BIRMINGHAM M.D.Performed By: #### RENAL, MG #### [place] [address] USABasophils/100 WBC (Bld)0.4 %Normal.The [facility] Physician GroupComment on above:Performed By: #### RENAL, MG #### [place] [address] USAEosinophils (Bld) [#/Vol]0.0 10*3/uLNormal0.0-0.45The [facility] Physician GroupComment on above:Performed By: #### RENAL, MG #### [place] [address] USAEosinophils/100 WBC (Bld)0.0 %Normal.The [facility] Physician GroupComment on above:Performed By: #### RENAL, MG #### [place] [address] USAErythrocyte distribution width (RBC) [Ratio]14.8 %Normal 12.0-14.8The [facility] Physician GroupComment on above:Performed By: #### RENAL, MG #### [place] [address] USAHematocrit (Bld) [Volume fraction]31.3 %Low38.8-50.0The [facility] Physician GroupComment on above:Performed By: #### RENAL, MG #### [place] [address] USAHemoglobin (Bld) [Mass/Vol]10.3 g/dLLow13.0-17.0The [facility] Physician GroupComment on above:Performed By: #### RENAL, MG #### [place] [address] USALymphocytes (Bld) [#/Vol]0.9 10*3/uLLow1.00-4.8The [facility] Physician GroupComment on above:Performed By: #### RENAL, MG #### [place] [address] USALymphocytes/100 WBC (Bld)6.1 %Normal.The [facility] Physician GroupComment on above:Performed By: #### RENAL, MG #### [place] [address] USAMCH (RBC) [Entitic mass]28.9 jcRcordi33.5-35.2The [facility] Physician GroupComment on above:Performed By: #### RENAL, MG #### [place] [address] USAMCV (RBC) [Entitic vol]87.5 aCOzbpri84.5-101The [facility] Physician GroupComment on above:Performed By: #### RENAL, MG #### [place] [address] USAMean Corpuscular HGB Conc33.0 g/uBAsnfhv71.5-35.6The [facility] Physician GroupComment on above:Performed By: #### RENAL, MG #### [facility] [address] [place] [address] USAMonocytes (Bld) [#/Vol]1.3 10*3/uLHigh0.0-0.8The [facility] Physician GroupComment on above:Performed By: #### RENAL, MG #### [facility] [address] [place] [address] USAMonocytes/100 WBC (Bld)9.0 %Normal.The [facility] Physician GroupComment on above:Performed By: #### RENAL, MG #### [facility] [address] [place] [address] USANeutrophils (Bld) [#/Vol]12.6 10*3/uLHigh1.8-7.7The [facility] Physician GroupComment on above:Performed By: #### RENAL, MG #### [facility] [address] [place] [address] USANeutrophils/100 WBC (Bld)84.5 %Normal.The [facility] Physician GroupComment on above:Performed By: #### RENAL, MG #### [facility] [address] [place] [address] USANRBC%0.1 /100{WBC}Normal0-0.5The [facility]ician Group Comment on above:Performed By: #### RENAL, MG #### [facility] [address] [place] [address] USAPlatelet mean volume (Bld) [Entitic vol]7.8 fLNormal 6.6-10.1The [facility] Physician GroupComment on above:Performed By: #### RENAL, MG #### [facility] [address] [place] [address] USAPlatelets (Bld) [#/Vol]170 10*3/vLQnvxuj479-025Yud [facility] Physician GroupComment on above:Performed By: #### RENAL, MG #### [facility] [address] [place] [address] USARBC (Bld) [#/Vol]3.58 10*6/uLLow3.90-5.60The [facility] Physician GroupComment on above:Performed By: #### RENAL, MG #### [facility] [address] [place] [address] USAWBC (Bld) [#/Vol]15.0 10*3/uLHigh4.1-10.5The [facility] Physician GroupComment on above:Performed By: #### RENAL, MG #### [facility] [address] [place] [address] USAWhite Blood Count15.0 [CFU]/mLHigh4.1-10.5The [facility] Physician GroupComment on above:Performed By: #### RENAL, MG #### [facility] [address] [place] [address] USAGlucose Poct Glucometerson 79-38-2632Kfizodh [Mass/Vol]298 mg/dLNoFrye Regional Medical Center Physician Trace Regional HospitalComment on above:Result Comment: Random Glucose Reference Range is dependent on time and content of last meal. Glucose of more than 200 mg/dL in a nonstressed, ambulatory subject supports the diagnosis of Diabetes Mellitus. PERFORMED BY: [place] [address] PATHOLOGIST FIRE APPARATUS ENGINEER CARLOS BIRMINGHAM M.D.Performed By: #### HEPACUTE, HBCAB, HBSAB #### [facility] ,Glucose [Mass/Vol]299 mg/dLHCA Florida [facility] Emergency Physician Trace Regional HospitalComment on above: Result Comment: Random Glucose Reference Range is dependent on time and content of last meal. Glucose of more than 200 mg/dL in a nonstressed, ambulatory subject supports the diagnosis of Diabetes Mellitus. PERFORMED BY: [place] [address] PATHOLOGIST FIRE APPARATUS ENGINEER CARLOS BIRMINGHAM M.D.Performed By: #### HEPACUTE, HBCAB, HBSAB #### [facility] ,Senowqr7Eeg5: Cleaned MeterNormPhysicians Regional Medical Center [facility] Col[facility] Boulevard Physician Trace Regional HospitalComment on above: Result Comment: PERFORMED BY: [address] [address] PATHOLOGIST FIRE APPARATUS ENGINEER CARLOS BIRMINGHAM M.D.Performed By: #### HEPACUTE, HBCAB, HBSAB #### [facility] ,Glucose [Mass/Vol]143 mg/dLNoFrye Regional Medical Center Physician GroupComment on above: Result Comment: Random Glucose Reference Range is dependent on time and content of last meal. Glucose of more than 200 mg/dL in a nonstressed, ambulatory subject supports the diagnosis of Diabetes Mellitus.Performed By: #### HEPACUTE, HBCAB, HBSAB #### [facility] ,Glucose [Mass/Vol]218 mg/dLNoFrye Regional Medical Center Physician GroupComment on above: Result Comment: Random Glucose Reference Range is dependent on time and content of last meal. Glucose of more than 200 mg/dL in a nonstressed, ambulatory subject supports the diagnosis of Diabetes Mellitus. PERFORMED BY: [place] [address] PATHOLOGIST FIRE APPARATUS ENGINEER CARLOS BIRMINGHAM M.D.Performed By: #### GLULS #### Point of Care testing ,Magnesiumon 70-70-7243Woirljavr [Mass/Vol]2.5 mg/dLNormal1.9-2.7The [facility] Physician GroupComment on above:Result Comment: PERFORMED BY: [place] [address] PATHOLOGIST FIRE APPARATUS ENGINEER CARLOS BIRMINGHAM M.D.Performed By: #### RENAL, MG #### [facility] [address] [place] [address] USARenal Function Panelon 72-46-3611Nnzbkcp [Mass/Vol]3.1 g/dLLow3.5-5.7The [facility] Physician GroupComment on above:Performed By: #### RENAL, MG #### [facility] [address] [place] [address] USAAnion gap [Moles/Vol]19.1 mmol/LHigh6.0-15.0The [facility] Physician GroupComment on above:Performed By: #### RENAL, MG #### [facility] [address] [place] [address] USACalcium [Mass/Vol]8.3 mg/dLLow8.6-10.3The [facility] Physician GroupComment on above:Performed By: #### RENAL, MG #### [facility] [address] [place] [address] USAChloride [Moles/Vol]93 mmol/FSmp69-698Qmc [facility] Physician GroupComment on above:Performed By: #### RENAL, MG #### [facility] [address] [place] [address] USACO2 [Moles/Vol]24.8 mmol/DAbwcyn04.0-31.0The [facility] Physician GroupComment on above:Performed By: #### RENAL, MG #### [place] [address] USACreatinine [Mass/Vol]5.68 mg/dLHigh0.70-1.30The [facility] Physician GroupComment on above:Performed By: #### RENAL, MG #### [facility] [address] [place] [address] USACreatinine Clr Calc Ygybtzcj86.03NormBellevue Hospitale [facility] Physician GroupComment on above:Performed By: #### RENAL, MG #### [place] [address] USAGFR/1.73 sq M.predicted MDRD (S/P/Bld) [Vol rate/Area] 10.455 mL/min/{1.73_m2}NormalThe [facility] Physician GroupComment on above: Performed By: #### RENAL, MG #### [place] [address] USAGlucose [Mass/Vol]228 mg/jCSwuh62-539Esz [facility] Physician GroupComment on above:Result Comment: Random Glucose Reference Range is dependent on time and content of last meal. Glucose of more than 200 mg/dL in a nonstressed, ambulatory subject supports the diagnosis of Diabetes Mellitus. ADA recommended reference rangePerformed By: #### RENAL, MG #### [place] [address] USAPhosphate [Mass/Vol]7.2 mg/dLHigh2.5-4.5The [facility] Physician GroupComment on above:Performed By: #### RENAL, MG #### [place] [address] USAPotassium [Moles/Vol]4.9 mmol/LNormal3.5-5.1The [facility] Physician GroupComment on above:Performed By: #### RENAL, MG #### [place] [address] USASodium [Moles/Vol]132 mmol/PAbq070-957Jjs [facility] Physician GroupComment on above:Performed By: #### RENAL, MG #### [place] [address] USAUrea nitrogen [Mass/Vol]65 mg/dLHigh7-25The [facility] Physician GroupComment on above:Performed By: #### RENAL, MG #### [place] [address] USABasic Metabolic Panelon 22-49-1968Vzogq gap [Moles/Vol] 17.6 mmol/LHigh6.0-15.0The [facility] Physician GroupComment on above:Performed By: #### RENAL, MG #### [place] [address] USACalcium [Mass/Vol]8.4 mg/dLLow8.6-10.3The [facility] Physician GroupComment on above:Performed By: #### RENAL, MG #### [place] [address] USACO2 [Moles/Vol]21.2 mmol/YCezrap63.0-31.0The [facility] Physician GroupComment on above:Performed By: #### RENAL, MG #### [place] [address] USACreatinine [Mass/Vol]6.64 mg/dLHigh0.70-1.30The [facility] Physician GroupComment on above:Performed By: #### RENAL, MG #### [place] [address] USACreatinine Clr Calc Nzeygcsl89.16NormalThe [facility] Physician GroupComment on above:Result Comment: PERFORMED BY: [place] [address] PATHOLOGIST FIRE APPARATUS ENGINEER CARLOS BIRMINGHAM M.D.Performed By: #### RENAL, MG #### [place] [address] USAGFR/1.73 sq M.predicted MDRD (S/P/Bld) [Vol rate/Area] 8.667 mL/min/{1.73_m2}NormalThe [facility] Physician GroupComment on above: Performed By: #### RENAL, MG #### [place] [address] USAGlucose [Mass/Vol]149 mg/kXVofj96-347Frt [facility] Physician GroupComment on above:Result Comment: Random Glucose Reference Range is dependent on time and content of last meal. Glucose of more than 200 mg/dL in a nonstressed, ambulatory subject supports the diagnosis of Diabetes Mellitus. ADA recommended reference rangePerformed By: #### RENAL, MG #### [place] [address] USAPotassium [Moles/Vol]4.8 mmol/LNormal3.5-5.1The [facility] Physician Trace Regional HospitalComment on above:Performed By: #### RENAL, MG #### [place] [address] USASodium [Moles/Vol]133 mmol/QOqp221-953Goa [facility] Physician GroupComment on above:Performed By: #### RENAL, MG #### [place] [address] USAUrea nitrogen [Mass/Vol]73 mg/dLHigh7-25The [facility] Physician GroupComment on above:Performed By: #### RENAL, MG #### [place] [address] USAComplete Blood Count Auto Diffon 71-96-2227Iwwhfxflv (Bld) [#/Vol]0.1 10*3/uLNormal0.0-0.2The [facility] Physician GroupComment on above: Result Comment: PERFORMED BY: [place] [address] PATHOLOGIST FIRE APPARATUS ENGINEER CARLOS BIRMINGHAM M.D.Performed By: #### RENAL, MG #### [place] [address] USABasophils/100 WBC (Bld)0.6 %Normal.The [facility] Physician GroupComment on above:Performed By: #### RENAL, MG #### [place] [address] USAEosinophils (Bld) [#/Vol]0.5 10*3/uLHigh0.0-0.45The [facility] Physician GroupComment on above:Performed By: #### RENAL, MG #### [place] [address] USAEosinophils/100 WBC (Bld)3.6 %Normal.The [facility] Physician GroupComment on above:Performed By: #### RENAL, MG #### [place] [address] USAErythrocyte distribution width (RBC) [Ratio]14.9 %High 12.0-14.8The [facility] Physician GroupComment on above:Performed By: #### RENAL, MG #### [place] [address] USAHematocrit (Bld) [Volume fraction]33.2 %Low38.8-50.0The [facility] Physician GroupComment on above:Performed By: #### RENAL, MG #### [place] [address] USAHemoglobin (Bld) [Mass/Vol]11.1 g/dLLow13.0-17.0The [facility] Physician GroupComment on above:Performed By: #### RENAL, MG #### [place] [address] USALymphocytes (Bld) [#/Vol]1.6 10*3/uLNormal1.00-4.8The [facility] Physician GroupComment on above:Performed By: #### RENAL, MG #### [facility] [address] [place] [id number] USALymphocytes/100 WBC (Bld)12.8 %Normal.The [facility] Physician GroupComment on above:Performed By: #### RENAL, MG #### [facility] [address] [place] [address] USAH (RBC) [Entitic mass]28.9 wwLozdxm47.5-35.2The [facility] Physician GroupComment on above:Performed By: #### RENAL, MG #### [facility] [address] [place] [address] USAMCV (RBC) [Entitic vol]86.6 sZHpxupi43.5-101The [facility] Physician GroupComment on above:Performed By: #### RENAL, MG #### [facility] [address] [place] [address] USAMean Corpuscular HGB Conc33.4 g/cEElnvtn48.5-35.6The [facility] Physician GroupComment on above:Performed By: #### RENAL, MG #### [facility] [address] [place] [address] USAMonocytes (Bld) [#/Vol]1.1 10*3/uLHigh0.0-0.8The [facility] Physician GroupComment on above:Performed By: #### RENAL, MG #### [facility] [address] [place] [id number] USAMonocytes/100 WBC (Bld)9.0 %Normal.The [facility] Physician GroupComment on above:Performed By: #### RENAL, MG #### [facility] [address] [place] [id number] USANeutrophils (Bld) [#/Vol]9.3 10*3/uLHigh1.8-7.7The [facility] Physician GroupComment on above:Performed By: #### RENAL, MG #### [facility] [address] [place] [id number] USANeutrophils/100 WBC (Bld)74.0 %Normal.The [facility] Physician GroupComment on above:Performed By: #### RENAL, MG #### [place] [address] USANRBC%0.1 /100{WBC}Normal0-0.5The [facility]ician Group Comment on above:Performed By: #### RENAL, MG #### [place] [address] USAPlatelet mean volume (Bld) [Entitic vol]7.2 fLNormal 6.6-10.1The [facility] Physician GroupComment on above:Performed By: #### RENAL, MG #### [place] [address] USAPlatelets (Bld) [#/Vol]160 10*3/wMAddzfcdd478-081Inr [facility] Physician GroupComment on above:Performed By: #### RENAL, MG #### [place] [address] USARBC (Bld) [#/Vol]3.83 10*6/uLLow3.90-5.60The [facility] Physician GroupComment on above:Performed By: #### RENAL, MG #### [place] [address] USAWBC (Bld) [#/Vol]12.5 10*3/uLHigh4.1-10.5The [facility] Physician GroupComment on above:Performed By: #### RENAL, MG #### [place] [address] USAWhite Blood Count12.5 [CFU]/mLHigh4.1-10.5The [facility] Physician GroupComment on above:Performed By: #### RENAL, MG #### [place] [address] USAFerritinon 61-67-7700Fbnobvqh [Mass/Vol]384.2 ng/mLHigh 23.9-336.2The [facility] Physician GroupComment on above:Result Comment: PERFORMED BY: [place] [address] PATHOLOGIST FIRE APPARATUS ENGINEER CARLOS BIRMINGHAM M.D.Performed By: #### GLULS #### Point of Care testing ,Glucose Poct Glucometerson 87-12-5962Muwaqyb [Mass/Vol]295 mg/dLNoFrye Regional Medical Center Physician GroupComment on above:Result Comment: Random Glucose Reference Range is dependent on time and content of last meal. Glucose of more than 200 mg/dL in a nonstressed, ambulatory subject supports the diagnosis of Diabetes Mellitus. PERFORMED BY: [place] [address] PATHOLOGIST FIRE APPARATUS ENGINEER CARLOS BIRMINGHAM M.D.Performed By: #### RENAL, MG #### [place] [address] USAGlucose [Mass/Vol]258 mg/dLNoFrye Regional Medical Center Physician GroupComment on above:Result Comment: Random Glucose Reference Range is dependent on time and content of last meal. Glucose of more than 200 mg/dL in a nonstressed, ambulatory subject supports the diagnosis of Diabetes Mellitus. PERFORMED BY: [place] [address] PATHOLOGIST FIRE APPARATUS ENGINEER CARLOS BIRMINGHAM M.D.Performed By: #### RENAL, MG #### [place] [address] USAGlucose [Mass/Vol]178 mg/dLNoFrye Regional Medical Center Physician GroupComment on above:Result Comment: Random Glucose Reference Range is dependent on time and content of last meal. Glucose of more than 200 mg/dL in a nonstressed, ambulatory subject supports the diagnosis of Diabetes Mellitus. PERFORMED BY: [place] [address] PATHOLOGIST FIRE APPARATUS ENGINEER CARLOS BIRMINGHAM M.D.Performed By: #### RENAL, MG #### [place] [address] USAGlucose [Mass/Vol]169 mg/dLNormPhysicians Regional [facility] Center [facility] Boulevard Physician GroupComment on above:Result Comment: Random Glucose Reference Range is dependent on time and content of last meal. Glucose of more than 200 mg/dL in a nonstressed, ambulatory subject supports the diagnosis of Diabetes Mellitus. PERFORMED BY: [place] [phone] PATHOLOGIST FIRE APPARATUS ENGINEER CARLOS BIRMINGHAM M.D.Performed By: #### GLULS #### Point of Care testing ,Sjarzvo3Nyw9: Cleaned MeterNoFrye Regional Medical Center Physician GroupComment on above: Result Comment: PERFORMED BY: [place] [phone] PATHOLOGIST FIRE APPARATUS ENGINEER CARLOS BIRMINGHAM M.D.Performed By: #### RENAL, MG #### [place] [address] USAGlucose [Mass/Vol]154 mg/dLHCA Florida Starke Emergency Physician Trace Regional HospitalComment on above:Result Comment: Random Glucose Reference Range is dependent on time and content of last meal. Glucose of more than 200 mg/dL in a nonstressed, ambulatory subject supports the diagnosis of Diabetes Mellitus.Performed By: #### RENAL, MG #### [place] [address] USAGlucose [Mass/Vol]146 mg/dLNoFrye Regional Medical Center Physician Trace Regional HospitalComment on above:Result Comment: Random Glucose Reference Range is dependent on time and content of last meal. Glucose of more than 200 mg/dL in a nonstressed, ambulatory subject supports the diagnosis of Diabetes Mellitus. PERFORMED BY: [place] [phone] PATHOLOGIST FIRE APPARATUS ENGINEER CARLOS BIRMINGHAM M.D.Performed By: #### RENAL, MG #### [place] [address] USAHepatitis Acute Panelon 37-54-3459SPgYv ScreenNegative NormalNegativeThe [facility] Trace Regional HospitalComment on above:Performed By: #### HEPACUTE, HBCAB, HBSAB #### [facility] ,Hepatitis A Antibody IgMNegativeNormalNegativeThe [facility] Comment on above:Result Comment: A negative anti-HAV IgM result suggests no recent or current HAV infection.Performed By: #### HEPACUTE, HBCAB, HBSAB #### [facility] ,Hepatitis B Core Antibody IgMNegativeNormalNegativeThe [facility] Physician GroupComment on above:Performed By: #### HEPACUTE, HBCAB, HBSAB #### [facility] ,Hepatitis C Virus AntibodyNon-ReactiveNormalNon ReactiveThe [facility] Physician GroupComment on above:Performed By: #### HEPACUTE, HBCAB, HBSAB #### [facility] ,Interpretation Hepatitis CCommentNormal.The [facility] Physician GroupComment on above:Result Comment: Not infected with HCV unless early or acute infection is suspected (which may be delayed in an immunocompromised individual), or other evidence exists to indicate HCV infection.Performed By: #### HEPACUTE, HBCAB, HBSAB #### [facility] ,Hepatitis B Core Antibodyon 32-32-0931Wbifbhagv B Core AntibodyNegativeNormal NegativeThe [facility] Physician GroupComment on above:Result Comment: Performed at: [facility] [id number] Raise Drill Operator: Mata Brian PhD, Phone: [phone] PERFORMED BY: [place] [id number] PATHOLOGIST FIRE APPARATUS ENGINEER CARLOS BIRMINGHAM M.D.Performed By: #### HEPACUTE, HBCAB, HBSAB #### [facility] ,Hepatitis B Surface Antibodyon 40-55-0064Sjtoazhrx B Surface Antibody Non-ReactiveNormal.The [facility] Physician GroupComment on above:Result Comment: Non Reactive: Not immune to HBV infection. Anti-HBs undetectable or less than 10 mIU/mL. Reactive: Evidence of HBV immunity. Anti-HBs levels greater than 10 mIU/mL.Performed By: #### HEPACUTE, HBCAB, HBSAB #### [facility] ,Iron and TIBC Profileon 12-24-2024% Iron Lkkurpqpdx92.5 %Wivz02-00Szt [facility] Physician GroupComment on above:Performed By: #### GLULS #### Point of Care testing ,Iron [Mass/Vol]148 ug/fUKaqehr07-218Ygm [facility] Physician GroupComment on above:Performed By: #### GLULS #### Point of Care testing ,Total Iron Binding Erfyndtq958 ug/kIQfl386-865Skl [facility] Comment on above:Performed By: #### GLULS #### Point of Care testing ,Transferrin [Mass/Vol]140 mg/hIGum560-015Ovj [facility] Physician GroupComment on above:Performed By: #### GLULS #### Point of Care testing ,Magnesiumon 63-38-1280Szqmbdvwt [Mass/Vol]2.5 mg/dLNormal1.9-2.7The [facility] Physician GroupComment on above:Result Comment: PERFORMED BY: [place] [address] PATHOLOGIST FIRE APPARATUS ENGINEER CARLOS BIRMINGHAM M.D.Performed By: #### GLULS #### Point of Care testing ,Renal Function Panelon 58-93-5393Nrnnenf [Mass/Vol]3.2 g/dLLow3.5-5.7The [facility] Physician GroupComment on above:Performed By: #### GLULS #### Point of Care testing ,Anion gap [Moles/Vol]18.0 mmol/LHigh6.0-15.0The [facility] Comment on above:Performed By: #### GLULS #### Point of Care testing ,Calcium [Mass/Vol]8.5 mg/dLLow8.6-10.3The [facility] Physician GroupComment on above:Performed By: #### GLULS #### Point of Care testing ,Chloride [Moles/Vol]99 mmol/MWcvbyw18-305Jok [facility] Physician GroupComment on above:Performed By: #### GLULS #### Point of Care testing ,Performed By: #### RENAL, MG #### [place] [address] USACO2 [Moles/Vol]19.9 mmol/LLow21.0-31.0The [facility] Physician GroupComment on above:Performed By: #### GLULS #### Point of Care testing ,Creatinine [Mass/Vol]6.40 mg/dLHigh0.70-1.30The [facility] Comment on above:Performed By: #### GLULS #### Point of Care testing ,Creatinine Clr Calc Zndbhjyf37.81NoFrye Regional Medical Center Physician GroupComment on above:Performed By: #### GLULS #### Point of Care testing ,GFR/1.73 sq M.predicted MDRD (S/P/Bld) [Vol rate/Area]9.059 mL/min/{1.73_m2} NormalThe [facility] Physician GroupComment on above:Performed By: #### GLULS #### Point of Care testing ,Glucose [Mass/Vol]148 mg/vYWfqp79-843Dzg [facility] Physician GroupComment on above:Result Comment: Random Glucose Reference Range is dependent on time and content of last meal. Glucose of more than 200 mg/dL in a nonstressed, ambulatory subject supports the diagnosis of Diabetes Mellitus. ADA recommended reference rangePerformed By: #### GLULS #### Point of Care testing ,Phosphate [Mass/Vol]6.5 mg/dLHigh2.5-4.5The [facility] Physician GroupComment on above:Performed By: #### GLULS #### Point of Care testing ,Potassium [Moles/Vol]4.9 mmol/LNormal3.5-5.1The [facility] Comment on above:Performed By: #### GLULS #### Point of Care testing ,Sodium [Moles/Vol]132 mmol/ZMru014-330Wsy [facility] Physician GroupComment on above:Performed By: #### GLULS #### Point of Care testing ,Urea nitrogen [Mass/Vol]70 mg/dLHigh7-25The [facility] Physician GroupComment on above:Performed By: #### GLULS #### Point of Care testing ,ABO/Rh Retypeon 24-99-7439QQB/RH Recheck ResultPositiveNoFrye Regional Medical Center Physician GroupComment on above:Order Comment: redrawResult Comment: PERFORMED BY: [facility] [address] [place] [address] PATHOLOGIST FIRE APPARATUS ENGINEER CARLOS BIRMINGHAM M.D.Basic Metabolic Panelon 89-75-2958Dowdf gap [Moles/Vol]15.6 mmol/LHigh6.0-15.0[facility] Physician GroupComment on above:Performed By: #### HEPACUTE, HBCAB, HBSAB #### [facility] ,Calcium [Mass/Vol]9.0 mg/dLNormal8.6-10.3TProvidence VA Medical Center Physician GroupComment on above:Performed By: #### HEPACUTE, HBCAB, HBSAB #### [facility] ,Chloride [Moles/Vol]104 mmol/UTtzyjp10-696Ivs [place] Physician GroupComment on above:Performed By: #### HEPACUTE, HBCAB, HBSAB #### [facility] ,CO2 [Moles/Vol]19.8 mmol/LLow21.0-31.0The [facility] Physician GroupComment on above:Performed By: #### HEPACUTE, HBCAB, HBSAB #### [facility] ,Creatinine [Mass/Vol]5.46 mg/dLHigh0.70-1.30The [facility] Comment on above:Performed By: #### HEPACUTE, HBCAB, HBSAB #### [facility] ,Creatinine Clr Calc Qucebmdf31.66NoFrye Regional Medical Center Physician GroupComment on above:Performed By: #### HEPACUTE, HBCAB, HBSAB #### [facility] ,GFR/1.73 sq M.predicted MDRD (S/P/Bld) [Vol rate/Area]10.962 mL/min/{1.73_m2} NormalHollywood Medical Center Physician GroupComment on above:Performed By: #### HEPACUTE, HBCAB, HBSAB #### [facility] ,Glucose [Mass/Vol]288 mg/lEJapv82-085Hiw [facility] Physician GroupComment on above:Result Comment: Random Glucose Reference Range is dependent on time and content of last meal. Glucose of more than 200 mg/dL in a nonstressed, ambulatory subject supports the diagnosis of Diabetes Mellitus. ADA recommended reference rangePerformed By: #### HEPACUTE, HBCAB, HBSAB #### [facility] ,Potassium [Moles/Vol]5.4 mmol/LHigh3.5-5.1The [facility] Physician GroupComment on above:Performed By: #### HEPACUTE, HBCAB, HBSAB #### [facility] ,Sodium [Moles/Vol]134 mmol/HCpn229-704Rvo [facility] Physician GroupComment on above:Performed By: #### HEPACUTE, HBCAB, HBSAB #### [facility] ,Urea nitrogen [Mass/Vol]65 mg/dLHigh7-25The [facility] Physician GroupComment on above:Performed By: #### HEPACUTE, HBCAB, HBSAB #### [facility] ,Anion gap [Moles/Vol]17.6 mmol/LHigh6.0-15.0The [facility] Comment on above:Performed By: #### HEPACUTE, HBCAB, HBSAB #### [facility] ,Calcium [Mass/Vol]9.2 mg/dLNormal8.6-10.3The [facility] Physician GroupComment on above:Performed By: #### HEPACUTE, HBCAB, HBSAB #### [facility] ,Chloride [Moles/Vol]104 mmol/IYkrtuo96-860Vjl [facility] Physician GroupComment on above:Performed By: #### HEPACUTE, HBCAB, HBSAB #### [facility] ,CO2 [Moles/Vol]17.2 mmol/LLow21.0-31.0The [facility] Physician GroupComment on above:Performed By: #### HEPACUTE, HBCAB, HBSAB #### [facility] ,Creatinine [Mass/Vol]5.53 mg/dLHigh0.70-1.30The [facility] Comment on above:Performed By: #### HEPACUTE, HBCAB, HBSAB #### [facility] ,Creatinine Clr Calc Bquxcerr55.41NormBellevue Hospitale [facility] Physician GroupComment on above:Result Comment: PERFORMED BY: [facility] [place] [address] PATHOLOGIST FIRE APPARATUS ENGINEER CARLOS BIRMINGHAM M.D.Performed By: #### HEPACUTE, HBCAB, HBSAB #### [facility] ,GFR/1.73 sq M.predicted MDRD (S/P/Bld) [Vol rate/Area]10.795 mL/min/{1.73_m2} NormalThe [facility] Physician GroupComment on above:Performed By: #### HEPACUTE, HBCAB, HBSAB #### [facility] ,Glucose [Mass/Vol]280 mg/wCCzpx80-595Nua [facility] Physician GroupComment on above:Result Comment: Random Glucose Reference Range is dependent on time and content of last meal. Glucose of more than 200 mg/dL in a nonstressed, ambulatory subject supports the diagnosis of Diabetes Mellitus. ADA recommended reference rangePerformed By: #### HEPACUTE, HBCAB, HBSAB #### [facility] ,Potassium [Moles/Vol]5.8 mmol/LHigh3.5-5.1The [facility] Physician GroupComment on above:Result Comment: Hemolysis is present at a level that could interfere with the result. Contact lab if redraw is requiredPerformed By: #### HEPACUTE, HBCAB, HBSAB #### [facility] ,Sodium [Moles/Vol]133 mmol/PLmm924-746Pfn [facility] Physician GroupComment on above:Performed By: #### HEPACUTE, HBCAB, HBSAB #### [facility] ,Urea nitrogen [Mass/Vol]66 mg/dLHigh7-25The [facility] Physician GroupComment on above:Performed By: #### HEPACUTE, HBCAB, HBSAB #### [facility] ,Creatine Kinaseon 75-67-5843EY [Catalytic activity/Vol]190 U/PYcybxo07-648Lxt [place] Physician GroupComment on above:Result Comment: PERFORMED BY: [place] [address] PATHOLOGIST FIRE APPARATUS ENGINEER CARLOS BIRMINGHAM M.D.Performed By: #### RENAL, MG #### [place] [address] USAECG 12 lead ECGon 79-70-3614RIO 12 lead ECGMIAMI [place] [address] Electrocardiograph Report Signed Patient: Rashard Lyman MR#: [id number] : 1960 Acct:[id number] Age/Sex: 64 / M ADM Date: 12/23/24 Loc: 4N Room: [address] [place] [address] Type: ADM IN Attending Dr: Leno Dela [...] in Anterior leads Confirmed by Adrian Farmer ([id number]) on 12/23/2024 2:14:11 PM Referred By: Electronically Signed By: Adrian Farmer Transcribed By: MUS Signed By Adrian Farmer MD 12/23/24 1414NoFrye Regional Medical Center Physician GroupECH echo transthoracicon 48-25-6927WGD echo transthoracicMIAMI VALLEY HOSPITAL Main [place] [id number] Echocardiogram Signed Patient: aRshard Lyman MR#: [id number] : 1960 Acct:[id number] Age/Sex: 64 / M ADM Date: 12/23/24 Loc: 4N Room: [id number] Type: ADM IN Attending Dr: Leno Dela [...] 1027 Signed By: Ghislaine Arias MD 12/23/24 1135[facility] Ferritinon 56-94-5580Edohlfmo [Mass/Vol]378.8 ng/hJWbvr56.9-336.2The [facility]ician Trace Regional HospitalComment on above:Result Comment: PERFORMED BY: [place] [address] [place] [address] PATHOLOGIST FIRE APPARATUS ENGINEER CARLOS BIRMINGHAM M.D.Performed By: #### HEPACUTE, HBCAB, HBSAB #### [facility] ,Glucose Poct Glucometerson 90-76-2487Sssgfta [Mass/Vol]223 mg/dLNoFrye Regional Medical Center Physician GroupComment on above:Result Comment: Random Glucose Reference Range is dependent on time and content of last meal. Glucose of more than 200 mg/dL in a nonstressed, ambulatory subject supports the diagnosis of Diabetes Mellitus. PERFORMED BY: [place] [address] PATHOLOGIST FIRE APPARATUS ENGINEER CARLOS BIRMINGHAM M.D.Performed By: #### HEPACUTE, HBCAB, HBSAB #### [facility] ,Glucose [Mass/Vol]201 mg/dLNoFrye Regional Medical Center Physician GroupComment on above: Result Comment: Random Glucose Reference Range is dependent on time and content of last meal. Glucose of more than 200 mg/dL in a nonstressed, ambulatory subject supports the diagnosis of Diabetes Mellitus. PERFORMED BY: [place] [address] PATHOLOGIST FIRE APPARATUS ENGINEER CARLOS BIRMINGHAM M.D.Performed By: #### GLULS #### Point of Care testing ,Glucose [Mass/Vol]234 mg/dLNoFrye Regional Medical Center Physician GroupComment on above: Result Comment: Random Glucose Reference Range is dependent on time and content of last meal. Glucose of more than 200 mg/dL in a nonstressed, ambulatory subject supports the diagnosis of Diabetes Mellitus. PERFORMED BY: [place] [address] PATHOLOGIST FIRE APPARATUS ENGINEER CARLOS BIRMINGHAM M.D.Performed By: #### RENAL, MG #### [place] [address] USAGlucose [Mass/Vol]292 mg/dLNoFrye Regional Medical Center Physician GroupComment on above:Result Comment: Random Glucose Reference Range is dependent on time and content of last meal. Glucose of more than 200 mg/dL in a nonstressed, ambulatory subject supports the diagnosis of Diabetes Mellitus. PERFORMED BY: [facility] [address] [place] [address] PATHOLOGIST FIRE APPARATUS ENGINEER CARLOS BIRMINGHAM M.D.Performed By: #### GLULS #### Point of Care testing ,Hemogram CBC Without Diffon 36-84-4630Gjepqmvujdk distribution width (RBC) [Ratio]15.0 %High12.0-14.8The [facility] Physician GroupComment on above: Performed By: #### HEPACUTE, HBCAB, HBSAB #### [facility] ,Hematocrit (Bld) [Volume fraction]39.1 %Zzmqyg33.8-50.0The [facility] Physician GroupComment on above:Performed By: #### HEPACUTE, HBCAB, HBSAB #### [facility] ,Hemoglobin (Bld) [Mass/Vol]12.7 g/dLLow13.0-17.0The [facility] Comment on above:Performed By: #### HEPACUTE, HBCAB, HBSAB #### [facility] ,MCH (RBC) [Entitic mass]28.4 qnEoijkm84.5-35.2The [facility] Comment on above:Performed By: #### HEPACUTE, HBCAB, HBSAB #### [facility] ,MCV (RBC) [Entitic vol]87.7 pCVxtepc53.5-101The [facility] Comment on above:Performed By: #### HEPACUTE, HBCAB, HBSAB #### [facility] ,Mean Corpuscular HGB Conc32.4 g/dLLow32.5-35.6The [facility] Comment on above:Performed By: #### HEPACUTE, HBCAB, HBSAB #### [facility] ,Platelet mean volume (Bld) [Entitic vol]6.8 fLNormal6.6-10.1The [facility] Physician GroupComment on above:Result Comment: PERFORMED BY: [facility] [address] [place] [address] PATHOLOGIST FIRE APPARATUS ENGINEER CARLOS BIRMINGHAM M.D.Performed By: #### HEPACUTE, HBCAB, HBSAB #### [facility] ,Platelets (Bld) [#/Vol]225 10*3/gGBhagcj735-457Nsx [facility] Comment on above:Performed By: #### HEPACUTE, HBCAB, HBSAB #### [facility] ,RBC (Bld) [#/Vol]4.46 10*6/uLNormal3.90-5.60The [facility] Comment on above:Performed By: #### HEPACUTE, HBCAB, HBSAB #### [facility] ,White Blood Count16.0 [CFU]/mLHigh4.1-10.5The [facility] Physician GroupComment on above:Performed By: #### HEPACUTE, HBCAB, HBSAB #### [facility] ,Iron and TIBC Profileon 12-23-2024% Iron Oorhwfcafz71.6 %Ezu11-59Lyt [facility] Physician GroupComment on above:Performed By: #### HEPACUTE, HBCAB, HBSAB #### [facility] ,Iron [Mass/Vol]30 ug/oSCgu53-323Rmd [facility] Physician GroupComment on above: Performed By: #### HEPACUTE, HBCAB, HBSAB #### [facility] ,Total Iron Binding Atirqqbo927 ug/sLMid070-713Vzi [facility] Comment on above:Performed By: #### HEPACUTE, HBCAB, HBSAB #### [facility] ,Transferrin [Mass/Vol]158 mg/qAKqf770-513Ezi [facility] Physician GroupComment on above:Performed By: #### HEPACUTE, HBCAB, HBSAB #### [facility] ,Potassiumon 45-42-4168Ymydcfjkl [Moles/Vol]4.8 mmol/LNormal3.5-5.1The [facility] Physician GroupComment on above:Result Comment: PERFORMED BY: [facility] [place] [address] PATHOLOGIST FIRE APPARATUS ENGINEER CARLOS BIRMINGHAM M.D.Performed By: #### RENAL, MG #### [place] [address] USARenal Function Panelon 53-77-4365Jkamyiy [Mass/Vol]3.4 g/dLLow3.5-5.7The [facility] Physician GroupComment on above:Performed By: #### RENAL #### [place] [address] USAAnion gap [Moles/Vol]13.6 mmol/LNormal6.0-15.0The [facility] Physician GroupComment on above:Performed By: #### RENAL #### [place] [address] USACalcium [Mass/Vol]8.9 mg/dLNormal8.6-10.3The [facility] Physician GroupComment on above:Performed By: #### RENAL #### [place] [address] USAChloride [Moles/Vol]100 mmol/RFklbim70-080Hka [facility] Physician GroupComment on above:Performed By: #### RENAL #### [place] [address] USACO2 [Moles/Vol]24.3 mmol/ZTgrjsu68.0-31.0The [facility] Physician GroupComment on above:Performed By: #### RENAL #### [place] [address] USACreatinine [Mass/Vol]5.69 mg/dLHigh0.70-1.30The [facility] Physician GroupComment on above:Performed By: #### RENAL #### [place] [address] USACreatinine Clr Calc Hcqazrtb62.86NormalThe [facility] Physician GroupComment on above:Result Comment: PERFORMED BY: [place] [address] PATHOLOGIST FIRE APPARATUS ENGINEER CARLOS BIRMINGHAM M.D.Performed By: #### RENAL #### [place] [address] USAGFR/1.73 sq M.predicted MDRD (S/P/Bld) [Vol rate/Area] 10.432 mL/min/{1.73_m2}NormalThe [facility] Physician GroupComment on above: Performed By: #### RENAL #### [place] [address] USAGlucose [Mass/Vol]209 mg/pKVxnr50-597Amv [facility] Physician GroupComment on above:Result Comment: Random Glucose Reference Range is dependent on time and content of last meal. Glucose of more than 200 mg/dL in a nonstressed, ambulatory subject supports the diagnosis of Diabetes Mellitus. ADA recommended reference rangePerformed By: #### RENAL #### [place] [address] USAPhosphate [Mass/Vol]6.9 mg/dLHigh2.5-4.5The [facility] Physician GroupComment on above:Performed By: #### RENAL #### [place] [address] USAPotassium [Moles/Vol]4.9 mmol/LNormal3.5-5.1The [facility] Physician GroupComment on above:Performed By: #### RENAL #### [place] [address] USASodium [Moles/Vol]133 mmol/QHkx903-187Tis [facility] Physician GroupComment on above:Performed By: #### RENAL #### [place] [address] USAUrea nitrogen [Mass/Vol]64 mg/dLHigh7-25The [facility] Physician GroupComment on above:Performed By: #### RENAL #### [place] [address] USATroponin I High Sensitivityon 82-98-1439Apooemmq I High Pcvdhiqcrsa449Uxi scale high0-20The [facility] Physician GroupComment on above: Result Comment: Critical Result : Called to and read back by: MAC BECERRA at: 12/23/2024 06:03:32 by:ALAN The Troponin units of report have been changed to meet the Chest Pain Accreditation requirement, element EC5.M1l2. Troponin units are changed from pg/ml to ng/L. Also, the decimal is removed and results are in whole numbers. PERFORMED BY: [place] [address] PATHOLOGIST FIRE APPARATUS ENGINEER CARLOS BIRMINGHAM M.D.Performed By: #### HEPACUTE, HBCAB, HBSAB #### [facility] ,Troponin I High Jbwccwlgjwr874Tzs scale high0-20The [facility] Comment on above:Result Comment: Critical Result : Called to and read back by: MAC BECERRA at: 12/23/2024 04:28:13 by:ALAN The Troponin units of report have been changed to meet the Chest Pain Accreditation requirement, element EC5.M1l2. Troponin units are changed from pg/ml to ng/L. Also, the decimal is removed and results are in whole numbers. PERFORMED BY: [place] [address] PATHOLOGIST FIRE APPARATUS ENGINEER CARLOS BIRMINGHAM M.D.Performed By: #### RENAL, MG #### [place] [address] USAType and Screenon 46-49-3764RDL and Rh group Nom (Bld) Blood group A Rh(D) positiveNoFrye Regional Medical Center Physician GroupUS renal BIon 15-09-1935QN renal [facility] Main [place] [address] [place] [address] Ultrasound Report Signed Patient: Rashard Lyman MR#: [id number] : 1960 Acct:[id number] Age/Sex: 64 / M ADM Date: 12/23/24 Loc: Room: [address] [place] [address] Type: ADM IN Attending Dr: Leno Dela [...] Jr., D.O. 12/23/2024 3:36 PM Dictation Location: [place] [address] Tech: Diana Bernard Transcribed By: [facility] 12/23/24 153 Dictated By: Clayton Cuevas Jr, DO 12/23/24 153 Signed By: 12/23/24 1536[facility] Physician GroupNo Panel InformationOrdered By: Chino Elliott on 43-18-8505Cuhuaulblipnp Pathology TestSee commentTrumbull Regional Medical CenterComment on above:See report. Scanned copy available in EMR.Pathology Request for Lab Corpon 84-17-8841Njbrvfxpp Request for Lab Truman NormalThe [facility] Physician GroupComment on above:Order Comment: RIGHT FOREFOOTResult Comment: See report. Scanned copy available in EMR. PERFORMED BY: [facility] [address] [place] [address] PATHOLOGIST FIRE APPARATUS ENGINEER CARLOS BIRMINGHAM M.D.Performed By: #### GLULS #### Point of Care testing ,No Panel InformationOrdered By: Chino Elliott on 27-72-5765Jyxdkrmxtbjao Pathology TestSee commentTrumbull Regional Medical CenterComment on above:See report. Scanned copy available in EMR.Pathology Request for Lab Corpon 28-99-9929Bwwpbqmdb Request for Lab CorpNoFrye Regional Medical Center Physician Group Comment on above:Order Comment: RIGHT HALLUXResult Comment: See report. Scanned copy available in EMR. PERFORMED BY: [facility] [address] [place] [address] PATHOLOGIST FIRE APPARATUS ENGINEER NIMA MCCLELLAN M.D.Performed By: #### HEPACUTE, HBCAB, HBSAB #### [facility] ,BLOOD UREA NITROGENon 45-66-8855Rkms nitrogen [Mass/Vol]40 mg/dLHigh5-27 [facility] HospitalComment on above:Performed By: #### ELEC, 3094-0, ENERGY RISK MANAGEMENT ANALYST, 59652-9 #### [facility] ([id number]) [address] [place] [address] #### 98760-8, HA1C #### [facility] ([id number]) [address] [place] [address], [address] [place], [place] [address]CCJ AND AUTO DIFFon 81-26-7022XZPYWYQF BASOPHIL0.0 X10E9/LNormal 0.0-0.2ProMedCommunity Hospital of San BernardinoComment on above:Performed By: #### UA #### [facility] ([id number]) [address] [place] [address]WQSNKQVH NEUTROPHIL5.2 X10E9/LNormal1.5-6.6ProCedar Park Regional Medical CenterComment on above:Performed By: #### UA #### [facility] ([id number]) [address] [place] [address] 95[address]Dhkxzxkfe/100 WBC (Bld)0.6 %[facility] Comment on above:Performed By: #### UA #### [facility] ([id number]) [address] [place] [address]Pogwstglpwd (Bld) [#/Vol]0.6 10*3/uLHigh0.0-0.4[facility] HospitalComment on above:Performed By: #### UA #### [facility] ([id number]) [address] [place] [address] 39782Tdzaidvabmc/100 WBC (Bld)6.5 %[facility] Comment on above:Performed By: #### UA #### [facility] ([id number]) [address] [place] [address]Gosfcckefkf distribution width (RBC) [Ratio]14.2 %Normal 11.5-15.0[facility] HospitalComment on above:Performed By: #### UA #### [facility] ([id number]) [address] [place] [address]Kajbrmjdoa (Bld) [Volume fraction]37.5 %Naw48-97UczRmbaxoCedar Park Regional Medical CenterComment on above:Performed By: #### UA #### [facility] ([id number]) [address] [place] [address] 28692Kxihvkfrnv (Bld) [Mass/Vol]12.3 g/dLLow13.0-17.0[facility] HospitalComment on above:Performed By: #### UA #### [facility] ([id number]) [address] [place] [address] 67[address]Hjgyiidqvvr (Bld) [#/Vol]1.9 10*3/uLNormal1.0-3.5PSumma Health Akron CampusComment on above:Performed By: #### UA #### [facility] ([id number]) [address] [place] [address] 258[address]Gxoquvqjwth/100 WBC (Bld)21.4 %NormalAvita Health System Ontario Hospital Comment on above:Performed By: #### UA #### [facility] ([id number]) [address] [place] [address] 39252OJF (RBC) [Entitic mass]29.3 ybUiejbm88-48VpmRosdkaCedar Park Regional Medical CenterComment on above:Performed By: #### UA #### [facility] ([id number]) [address] [place] [address] 02035SIVX (RBC) [Mass/Vol]32.7 g/aEJpgejc13-53WmnDvjoxtCedar Park Regional Medical CenterComment on above:Performed By: #### UA #### [facility] ([id number]) [address] [place] [address] 90787EJK (RBC) [Entitic vol]90 rLDkqpdl05-876ZadVfghtoAvita Health System Ontario HospitalComment on above:Performed By: #### UA #### [facility] ([id number]) [address] [place] [address] 21567Jnyfkxlir (Bld) [#/Vol]1.1 10*3/uLHigh0-0.9Av[facility] Ontario HospitalComment on above:Performed By: #### UA #### [facility] ([id number]) [address] [place] [address] 97650Rspsbanfy/100 WBC (Bld)12.8 %NormalAvita Health System Ontario Hospital Comment on above:Performed By: #### UA #### [facility] ([id number]) [address] [place] [address] 08715Eiohxaxjutj/100 WBC (Bld)58.7 %[facility] Comment on above:Performed By: #### UA #### [facility] ([id number]) [address] [place] [address] 68996Dyhortwv mean volume (Bld) [Entitic vol]6.6 fLLow7-12Pro[facility] Community HospitalComment on above:Performed By: #### UA #### [facility] ([id number]) [address] [place] [address] 68501Pfzxhppfx (Bld) [#/Vol]281 10*3/uLZnrpvr458-424VohAegwnd [facility]remont HospitalComment on above:Performed By: #### UA #### [facility] ([id number]) [address] [place] [address] 54060CZE COUNT4.19 X10E12/LNormal4.10-5.70[facility] Comment on above:Performed By: #### UA #### [facility] ([id number]) [address] [place] [address] 07955EDO (Bld) [#/Vol]8.8 10*3/uLNormal4.0-11.0Av[facility] HospitalComment on above:Performed By: #### UA #### [facility] ([id number]) [address] [place] [address] 73322VXOGPJSIUEza 30-07-6175Rpumuizwrm [Mass/Vol]3.74 mg/dLHigh 0.70-1.20ProCedar Park Regional Medical CenterComment on above:Result Comment: METHOD TRACEABLE TO IDMS STANDARDPerformed By: #### PHIL, 3094-0, ENERGY RISK MANAGEMENT ANALYST, 10477-8 #### [facility] ([id number]) [address] [place] [address] 94696 #### 46122-0, HA1C #### [facility] ([id number]) [address], [address] [place], [place] [address]ZMR/1.73 sq M.predicted among non-blacks MDRD (S/P/Bld) [Vol rate/Area]17 mL/min/{1.73_m2}Low>59ProCedar Park Regional Medical CenterComment on above: Result Comment: Reported eGFR is based on the CKD-EPI 2020 equation that does not use a race coefficient.Performed By: #### PHIL, 3094-0, ENERGY RISK MANAGEMENT ANALYST, 56624-4 #### [facility] ([id number]) [address] [place] [address] 20861 #### 23636-7, HA1C #### [facility] ([id number]) [address], [address] [place], [place] [address]AGJHRBZMMVHVbr 90-60-2880Joaif gap [Moles/Vol]8 mmol/LNormal5-15 ProMCalifornia Hospital Medical CenterComment on above:Performed By: #### PHIL, 3094-0, ENERGY RISK MANAGEMENT ANALYST, 68320-9 #### [facility] ([id number]) [address] [place] [address] 41055 #### 89849-6, HA1C #### [facility] ([id number]) [address], [address] [place], [place] [address]Upupkkmb [Moles/Vol]106 mmol/EWawvvh48-260KniZurftpCedar Park Regional Medical CenterComment on above:Performed By: #### ELEC, 3094-0, ENERGY RISK MANAGEMENT ANALYST, 43973-5 #### [facility] ([id number]) [address] [place] [address] 03837 #### 28518-9, HA1C #### [facility] ([id number]) [address], [address] [place], [place] [address]YH9 [Moles/Vol]21 mmol/QMpn39-64ElwXydnpnSumma Health [facility] Comment on above:Performed By: #### ELEC, 3094-0, ENERGY RISK MANAGEMENT ANALYST, 56668-1 #### [facility] ([id number]) [address] [place] [address] 14718 #### 97294-0, HA1C #### [facility] ([id number]) [address], [address] [place], [place] [address]Pvjdauxvm [Moles/Vol]5.2 mmol/LHigh3.5-5.0ProCedar Park Regional Medical CenterComment on above:Performed By: #### ELEC, 3094-0, ENERGY RISK MANAGEMENT ANALYST, 16270-5 #### [facility] ([id number]) [address] [place] [address] 02505 #### 23471-9, HA1C #### [facility] ([id number]) [address], [address] [place], [place] [address]Rqujyj [Moles/Vol]135 mmol/EKwiocm225-987KgcZevmfd [facility]remont HospitalComment on above:Performed By: #### ELEC, 3094-0, ENERGY RISK MANAGEMENT ANALYST, 70452-5 #### [facility] ([id number]) [address] [place] [address] 28782 #### 83583-5, HA1C #### [facility] ([id number]) [address], [address] [place], [place] [address]YJXZS UREA NITROGENon 27-36-8576Gnza nitrogen [Mass/Vol]50 mg/dL High5-27ProCedar Park Regional Medical CenterComment on above:Performed By: #### UA #### [facility] ([id number]) [address] [place] [address] 85868CWNMNHHmj 66-39-8756Tqihydp [Mass/Vol]8.7 mg/dLNormal8.5-10.5 [facility] HospitalComment on above:Performed By: #### MATTY CBCA, 1987-08, 58911-8 #### [facility] ([id number]) [address] [place] [address] 51053 #### 02994-7 #### [facility] ([id number]) [address], [address] [place], [place] [address]JIZ AND AUTO DIFFon 71-43-0111FOCBSDRN BASOPHIL0.1 X10E9/LNormal 0.0-0.2ProMedCommunity Hospital of San BernardinoComment on above:Performed By: #### MATTY, CBCA, 1987-08, 82954-1 #### [facility] ([id number]) [address] [place] [address] 88697 #### 67939-2 #### [facility] ([id number]) [address], [address] [place], [place] [address]CCWFBWMD NEUTROPHIL6.0 X10E9/LNormal1.5-6.6ProCedar Park Regional Medical CenterComment on above:Performed By: #### MATTY CBCA, 1987-08, #### [facility] ([id number]) [address] [place] [address] 37935 #### 41340-1 #### [facility] ([id number]) [address], [address] [place], [place] [address]Hilzymjgi/100 WBC (Bld)0.6 %NormalAvita Health System Ontario Hospital Comment on above:Performed By: #### MATTY CBCA, 1987-08, #### [facility] ([id number]) [address] [place] [address] 06200 #### 30638-8 #### [facility] ([id number]) [address], [address] [place], [place] [address]Snzrxjlkcbr (Bld) [#/Vol]0.3 10*3/uLNormal0.0-0.4Av[facility] HospitalComment on above:Performed By: #### MATTY CBCA, 1987-08, #### [facility] ([id number]) [address] [place] [address] 09441 #### 77684-0 #### [facility] ([id number]) [address], [address] [place], [place] [address]Hysqsmntnyn/100 WBC (Bld)3.1 %[facility] Comment on above:Performed By: #### MATTY, CBCA, 1987-08, #### [facility] ([id number]) [address] [place] [address] 99676 #### 22336-9 #### [facility] ([id number]) [address], [address] [place], [place] [address]Libzqnbkdcj distribution width (RBC) [Ratio]13.5 %Normal 11.5-15.0ProCedar Park Regional Medical CenterComment on above:Performed By: #### JAMES STARR, 1987-08, #### [facility] ([id number]) [address] [place] [address] 06584 #### 22006-4 #### [facility] ([id number]) [address], [address] [place], [place] [address]Ianpcgpegj (Bld) [Volume fraction]36.1 %Bwl25-25IdjJemdshCedar Park Regional Medical CenterComment on above:Performed By: #### JAMES STARR, 1987-08, #### [facility] ([id number]) [address] [place] [address] 36652 #### 27386-4 #### [facility] ([id number]) [address], [address] [place], [place] [address]Ktsqgscmuk (Bld) [Mass/Vol]11.8 g/dLLow13.0-17.0Av[facility] HospitalComment on above:Performed By: #### JAMES STARR, 1987-08, #### [facility] ([id number]) [address] [place] [address] 83559 #### 05480-3 #### [facility] ([id number]) [address], [address] [place], [place] [address]Bndcpoamsyf (Bld) [#/Vol]2.0 10*3/uLNormal1.0-3.5PSumma Health Akron CampusComment on above:Performed By: #### JAMES STARR, 1987-08, 19960-8 #### [facility] ([id number]) [address] [place] [address] 74613 #### 09384-3 #### [facility] ([id number]) [address], [address] [place], [place] [address]Pjvznphnbaa/100 WBC (Bld)20.7 %NormalAvita Health System [facility] Hospital Comment on above:Performed By: #### JAMES STARR, 1987-08, 95209-0 #### [facility] ([id number]) [address] [place] [address] 87359 #### 91025-4 #### [facility] ([id number]) [address], [address] [place], [place] [address]HCB (RBC) [Entitic mass]29.1 anWdoeol21-23HswImnhbpCedar Park Regional Medical CenterComment on above:Performed By: #### JAMES STARR, 1987-08, #### [facility] ([id number]) [address] [place] [address] 76060 #### 03743-5 #### [facility] ([id number]) [address], [address] [place], [place] [address]VCFE (RBC) [Mass/Vol]32.8 g/eKCfmkgp94-76UmwQsrglaCedar Park Regional Medical CenterComment on above:Performed By: #### JAMES STARR, 1987-08, #### [facility] ([id number]) [address] [place] [address] 52168 #### 16661-2 #### [facility] ([id number]) [address], [address] [place], [place] [address]GVX (RBC) [Entitic vol]89 rRLthybj95-620IhnBekdac [facility] HospitalComment on above:Performed By: #### JAMES STARR, 1987-08, #### [facility] ([id number]) [address] [place] [address] 54055 #### 49248-3 #### [facility] ([id number]) [address], [address] [place], [place] [address]Rwrveajri (Bld) [#/Vol]1.2 10*3/uLHigh0-0.9ProCedar Park Regional Medical CenterComment on above:Performed By: #### MATTY CBCA, 1987-08, #### [facility] ([id number]) [address] [place] [address] 68055 #### 63091-8 #### [facility] ([id number]) [address], [address] [place], [place] [address]Grwaadtza/100 WBC (Bld)12.3 %NormalAvita Health System [facility] Hospital Comment on above:Performed By: #### MATTY CBCA, 1987-08, #### [facility] ([id number]) [address] [place] [address] 96561 #### 60693-3 #### [facility] ([id number]) [address], [address] [place], [place] [address]Gmrsizjtels/100 WBC (Bld)63.3 %NormalAvita Health System [facility] Hospital Comment on above:Performed By: #### MATTY CBCA, 1987-08, #### [facility] ([id number]) [address] [place] [address] 19834 #### 97192-2 #### [facility] ([id number]) [address], [address] [place], [place] [address]Herrycdj mean volume (Bld) [Entitic vol]7.7 fLNormal7-12 [facility] HospitalComment on above:Performed By: #### MATTY CBCA, 1987-08, #### [facility] ([id number]) [address] [place] [address] 12903 #### 22872-5 #### [facility] ([id number]) [address], [address] [place], [place] [address]Foepjshtk (Bld) [#/Vol]264 10*3/zJTkzave954-939YpdGvmeyc [facility] HospitalComment on above:Performed By: #### JAMES STARR, 1987-08, 92957-9 #### [facility] ([id number]) [address] [place] [address] 70552 #### 57977-4 #### [facility] ([id number]) [address] [place] [address], [address] [place], [place] [address]IZY COUNT4.07 X10E12/LLow4.10-5.70[facility] Comment on above:Performed By: #### JAMES STARR, 1987-08, 06435-4 #### [facility] ([id number]) [address] [place] [address] 94813 #### 46838-2 #### [facility] ([id number]) [address], [address] [place], [place] [address]KJO (Bld) [#/Vol]9.4 10*3/uLNormal4.0-11.0ProCedar Park Regional Medical CenterComment on above:Performed By: #### JAMES STARR, 1987-08, 14636-8 #### [facility] ([id number]) [address] [place] [address] 58817 #### 85354-5 #### [facility] ([id number]) [address] [place] [address], [address] [place], [place] [address]IIGXFWCSUBcs 14-12-1965Swekpzjrie [Mass/Vol]3.14 mg/dLHigh 0.70-1.20ProCedar Park Regional Medical CenterComment on above:Result Comment: METHOD TRACEABLE TO IDMS STANDARDPerformed By: #### UA #### [facility] ([id number]) [address] [place] [address] 64622GBL/1.73 sq M.predicted among non-blacks MDRD (S/P/Bld) [Vol rate/Area]21 mL/min/{1.73_m2}Low>59ProCedar Park Regional Medical CenterComment on above: Result Comment: Reported eGFR is based on the CKD-EPI 2020 equation that does not use a race coefficient.Performed By: #### UA #### [facility] ([id number]) [address] [place] [address], [place] [address]JJQFWZIUPSDPll 84-58-3929Bwhyx gap [Moles/Vol]8 mmol/LNormal 5-15ProCedar Park Regional Medical CenterComment on above:Performed By: #### UA #### [facility] ([id number]) [address] [place] [address], [place] [address]Xwmdhten [Moles/Vol]104 mmol/GQzflns85-806NbmAxcyndCedar Park Regional Medical CenterComment on above:Performed By: #### UA #### [facility] ([id number]) [address] [place] [address], [place] [address]IK5 [Moles/Vol]19 mmol/TVvs72-30LuuDpermsSumma Health [facility]ron Campus Comment on above:Performed By: #### UA #### [facility] ([id number]) [address] [place] [address] 08989Dobidpzly [Moles/Vol]4.9 mmol/LNormal3.5-5.0[facility] HospitalComment on above:Performed By: #### UA #### [facility] ([id number]) [address] [place] [address], [place] [address]Fdfuiv [Moles/Vol]131 mmol/PYui940-980TnpYcdapkCedar Park Regional Medical CenterComment on above:Performed By: #### UA #### [facility] ([id number]) [address] [place] [address] 06046SJO Photometric method (Bld) [Velocity]on 16-18-0343WRJ, ERYTHROCYTE SEDIMENTATION RATE98 mm/hHigh0-20[facility] HospitalComment on above:Performed By: #### UA #### [facility] ([id number]) [address] [place] [address] 74593GPO A1C (GLYCO-HGB)on 48-79-6969Zbgviqz [Mass/Vol]289 mg/dL NormalProCedar Park Regional Medical CenterComment on above:Performed By: #### UA #### [facility] ([id number]) [address] [place] [address] 21877CeO0d (Bld) [Mass fraction]11.7 %High4.4-5.6[facility] HospitalComment on above:Result Comment: NOTE ADA Guidelines Result HgbA1c Normal : less than 5.7 % Prediabetes : 5.7 % to 6.4 % Diabetes : > 6.4 % Use with caution in patients with abnormal hemoglobin variants as the half-life of red blood cells and in vivo glycation rates are affected.Performed By: #### UA #### [facility] ([id number]) [address] [place] [address] 22842FOLDK PANELon 17-69-0809Ykixxnc [Mass/Vol]2.9 g/dLLow3.2-5.3 ProMCalifornia Hospital Medical CenterComment on above:Performed By: #### UA #### [facility] ([id number]) [address] [place] [address] 05722CUU [Catalytic activity/Vol]79 U/MZdytik23-869LoeOyhxplAvita Health System Ontario HospitalComment on above:Performed By: #### UA #### [facility] ([id number]) [address] [place] [address] 36169JDJ [Catalytic activity/Vol]26 U/LNormal0-40ProCedar Park Regional Medical CenterComment on above:Performed By: #### UA #### [facility] ([id number]) [address] [place] [address] 08331ICC [Catalytic activity/Vol]19 U/LNormal0-41ProCedar Park Regional Medical CenterComment on above:Performed By: #### UA #### [facility] ([id number]) [address] [place] [address] 18630Uxfazkqdp [Mass/Vol]0.5 mg/dLNormal0.3-1.2ProMedCommunity Hospital of San BernardinoComment on above:Performed By: #### UA #### [facility] ([id number]) [address] [place] [address] 33[address]Fmkraeoir.indirect [Mass/Vol]mg/dLNormal0.0-0.4ProCedar Park Regional Medical CenterComment on above:Performed By: #### UA #### [facility] ([id number]) [address] [place] [address] 66682Hqpfgqs [Mass/Vol]6.9 g/dLNormal6.0-8.0ProCedar Park Regional Medical CenterComment on above:Performed By: #### UA #### [facility] ([id number]) [address] [place] [address] 70310Wfwis 1996 panelon 50-11-3403Ghkcuyxedzk [Mass/Vol]136 mg/dLLow 150-200ProCedar Park Regional Medical CenterComment on above:Performed By: #### UA #### [facility] ([id number]) [address] [place] [address] 56269Afppaoufykw in HDL [Mass/Vol]40 mg/dLNormal>39Av[facility] HospitalComment on above:Result Comment: HDL <40 mg/dL - High Risk HDL > or = 40mg/dL- Desirable HDL >60 mg/dL - Negative Risk Performed By: #### UA #### [facility] ([id number]) [address] [place] [address], [place] [address]Ncyqhbzxnuy in LDL [Mass/Vol]62 mg/dLNormal<130ProCedar Park Regional Medical CenterComment on above:Result Comment: LDL <100 mg/dL - Desirable LDL >160 mg/dL - High Risk Performed By: #### UA #### [facility] ([id number]) [address] [place] [address] 64203Gmarogrblgb in VLDL [Mass/Vol]34 mg/dLHigh0-30ProC[facility] Park Regional Medical CenterComment on above:Performed By: #### UA #### [facility] ([id number]) [address] [place] [address] 41705XYCDHJUVWHW:HDL3.3Qgaoio5.0-5.0[facility] Comment on above:Performed By: #### UA #### [facility] ([id number]) [address] [place] [address] 88937Poidthnyfvtn [Mass/Vol]172 mg/pRYpiw19-483PxwXzazecCedar Park Regional Medical CenterComment on above:Performed By: #### UA #### [facility] ([id number]) [address] [place] [address] 26749Oysnwbtsbjc peptide B [Mass/Vol]on 29-44-5724Wyccznlgejo peptide B (Bld) [Mass/Vol]88 pg/mLNormal<100.0ProCedar Park Regional Medical CenterComment on above:Performed By: #### UA #### [facility] ([id number]) [address] [place] [address], [place] [address]Mzniuqi D+Metabolites [Mass/Vol]on 44-04-0776LRRIEVX D 25 HYD TOT15.1 ng/gIZza48-414CplZgeddfCedar Park Regional Medical CenterComment on above:Result Comment: Vitamin D status 25 [place] Vitamin D Deficiency <20 ng/mL Insufficiency 20-29 ng/mL Sufficiency 30-100 ng/mL Toxicity >100 ng/mL NOTE: A pediatric reference range has not been established by the bridge crane operator of this kit. The [place] [employer] recommends a Vitamin D level of = or >20ng/mL in infants and children.Performed By: #### UA #### [facility] ([id number]) [address] [place] [address] 21194AWELW UREA NITROGENon 51-31-1975Bmkb nitrogen [Mass/Vol]50 mg/dLHigh5-27ProCedar Park Regional Medical CenterComment on above:Performed By: #### MATTY CBCA, 1987-08, 32095-5 #### [facility] ([id number]) [address] [place] [address] 07099 #### 45729-6 #### [facility] ([id number]) [address], [address] [place], [place] [address]XCU AND AUTO DIFFon 99-55-0402PCSGUHYV BASOPHIL0.0 X10E9/LNormal 0.0-0.2Pro[facility] Community HospitalComment on above:Performed By: #### MATTY, CBCA, 1987-08, 42596-3 #### [facility] ([id number]) [address] [place] [address] 41504 #### 12406-4 #### [facility] ([id number]) [address], [address] [place], [place] [address]VFCPNDFT NEUTROPHIL5.7 X10E9/LNormal1.5-6.6ProMercy Health West Hospital HospitalComment on above:Performed By: #### MATTY, CBCA, 1987-08, 96090-4 #### [facility] ([id number]) [address] [place] [address] 01349 #### 63622-6 #### [facility] ([id number]) [address], [address] [place], [place] [address]Mdjptveoo/100 WBC (Bld)0.4 %[facility] Comment on above:Performed By: #### MATTY CBCA, 1987-08, 91294-5 #### [facility] ([id number]) [address] [place] [address] 78502 #### 00150-1 #### [facility] ([id number]) [address] [place], [place] [address]Fxbvtqmccfg (Bld) [#/Vol]0.4 10*3/uLNormal0.0-0.4[facility] HospitalComment on above:Performed By: #### JAMES STARR, 1987-08, 75268-9 #### [facility] ([id number]) [address] [place] [address] 23033 #### 35380-6 #### [facility] ([id number]) [address] [place], [place] [address]Kbnajiymbpu/100 WBC (Bld)4.8 %[facility] Comment on above:Performed By: #### MATTY CBCA, 1987-08, 20165-7 #### [facility] ([id number]) [address] [place] [address] 34211 #### 97600-0 #### [facility] ([id number]) [address] [place], [place] [address]Bptdbadqdsv distribution width (RBC) [Ratio]14.7 %Normal 11.5-15.0[facility] HospitalComment on above:Performed By: #### JAMES STARR, 1987-08, 75066-9 #### [facility] ([id number]) [address] [place] [address] 18719 #### 80107-9 #### [facility] ([id number]) [address], [address] [place], [place] [address]Qlohsjwwzo (Bld) [Volume fraction]39.0 %Ifvyku74-51SdoOnjoueCedar Park Regional Medical CenterComment on above:Performed By: #### JAMES STARR, 1987-08, #### [facility] ([id number]) [address] [place] [address]344 #### 47933-0 #### [facility] ([id number]) [address], [address] [place], [place] [address]Mzngybieku (Bld) [Mass/Vol]13.3 g/aZIgvkzr86.0-17.0ProCedar Park Regional Medical CenterComment on above:Performed By: #### JAMES STARR, 1987-08, 98727-3 #### [facility] ([id number]) [address] [place] [address]125 #### 72231-4 #### [facility] ([id number]) [address], [address] [place], [place] [address]Xaqrhtgpwrq (Bld) [#/Vol]1.7 10*3/uLNormal1.0-3.5PSumma Health Akron CampusComment on above:Performed By: #### JAMES STARR, 1987-08, 97637-4 #### [facility] ([id number]) [address] [place] [address] 07510 #### 52717-1 #### [facility] ([id number]) [address], [address] [place], [place] [address]Fxclwkrbswa/100 WBC (Bld)19.3 %NormalAvita Health System [facility] Hospital Comment on above:Performed By: #### JAMES STARR, 1987-08, 27096-5 #### [facility] ([id number]) [address] [place] [address]1728 #### 95113-0 #### [facility] ([id number]) [address], [address] [place], [place] [address]VIN (RBC) [Entitic mass]29.8 qxPqdkcm18-77RqvVpywanCedar Park Regional Medical CenterComment on above:Performed By: #### JAMES STARR, 1987-08, #### [facility] ([id number]) [address] [place] [address] 05788 #### 08668-4 #### [facility] ([id number]) [address], [address] [place], [place] [address]UDCO (RBC) [Mass/Vol]34.0 g/tRJzlhnp66-48WgjDwwqvxCedar Park Regional Medical CenterComment on above:Performed By: #### JAMES STARR, 1987-08, #### [facility] ([id number]) [address] [place] [address] 94781 #### 59182-3 #### [facility] ([id number]) [address], [address] [place], [place] [address]LTO (RBC) [Entitic vol]88 nGWervip24-396DxhUohsqb Fremont HospitalComment on above:Performed By: #### JAMES STARR, 1987-08, #### [facility] ([id number]) [address] [place] [address] 92992 #### 03064-5 #### [facility] ([id number]) [address], [address] [place], [place] [address]Neiecnuel (Bld) [#/Vol]0.8 10*3/uLNormal0-0.9ProCedar Park Regional Medical CenterComment on above:Performed By: #### MATTY, CBCA, 1987-08, #### [facility] ([id number]) [address] [place] [address] 17221 #### 39309-4 #### [facility] ([id number]) [address], [address] [place], [place] [address]Fvftfrbeo/100 WBC (Bld)8.8 %[facility] Comment on above:Performed By: #### SEVEN STARRA, 1987-08, #### [facility] ([id number]) [address] [place] [address] 95167 #### 24266-5 #### [facility] ([id number]) [address], [address] [place], [place] [address]Fcpvbunvnrm/100 WBC (Bld)66.7 %[facility] Comment on above:Performed By: #### MATTY CBCA, 1987-08, 66892-2 #### [facility] ([id number]) [address] [place] [address] 65881 #### 86827-9 #### [facility] ([id number]) [address], [address] [place], [place] [address]Hqqmxtnb mean volume (Bld) [Entitic vol]7.7 fLNormal7-12 [facility] Community HospitalComment on above:Performed By: #### MATTY, CBCA, 1987-08, #### [facility] ([id number]) [address] [place] [address]2330 #### 64578-1 #### [facility] ([id number]) [address] [facility], [address] [place], [place] [address]Azfltvtyy (Bld) [#/Vol]286 10*3/lYFzxqhm880-587GjhWlaofe Fremont HospitalComment on above:Performed By: #### JAMES STARR, 1987-08, 56871-4 #### [facility] ([id number]) [address] [place] [address] 07159 #### 39471-2 #### [facility] ([id number]) [address] [facility], [address] [place], [place] [address]VGS COUNT4.46 X10E12/LNormal4.10-5.70[facility] Comment on above:Performed By: #### JAMES STARR, 1987-08, 50101-9 #### [facility] ([id number]) [address] [place] [address] 77897 #### 84941-2 #### [facility] ([id number]) [address] [place] [address], [address] [place], [place] [address]AYH (Bld) [#/Vol]8.6 10*3/uLNormal4.0-11.0ProCedar Park Regional Medical CenterComment on above:Performed By: #### JAMES STARR, 1987-08, 62759-0 #### [facility] ([id number]) [address] [place] [address] 66743 #### 46435-4 #### [facility] ([id number]) [address], [address] [place], [place] [address]MHDYOWSNPCbe 11-07-2104Clwvhqadxl [Mass/Vol]3.32 mg/dLHigh 0.70-1.20ProCedar Park Regional Medical CenterComment on above:Result Comment: METHOD TRACEABLE TO IDMS STANDARDPerformed By: #### JAMES STARR, 1987-08, 73695-4 #### [facility] ([id number]) [address] [place] [address] 79278 #### 12936-6 #### [facility] ([id number]) [address] [facility], [address] [place], [place] [address]NBO/1.73 sq M.predicted among non-blacks MDRD (S/P/Bld) [Vol rate/Area]20 mL/min/{1.73_m2}Low>59ProCedar Park Regional Medical CenterComment on above: Result Comment: Reported eGFR is based on the CKD-EPI 2020 equation that does not use a race coefficient.Performed By: #### JAMES STARR, 1987-08, 34690-7 #### [facility] ([id number]) [address] [place] [address] 19210 #### 00201-2 #### [facility] ([id number]) [address] [facility], [address] [place], [place] [address]REGVQVZFHRXFlt 11-49-5392Jzndk gap [Moles/Vol]8 mmol/LNormal5-15 [facility] HospitalComment on above:Performed By: #### JAMES STARR, 1987-08, 23866-6 #### [facility] ([id number]) [address] [place] [address] 23385 #### 36797-2 #### [facility] ([id number]) [address] [facility], [address] [place], [place] [address]Cenmrikj [Moles/Vol]103 mmol/EVhcfdy93-369AveHhokxcCedar Park Regional Medical CenterComment on above:Performed By: #### JAMES STARR, 1987-08, 85185-7 #### [facility] ([id number]) [address] [place] [address] 41630 #### 07256-6 #### [facility] ([id number]) [address], [address] [place], [place] [address]YK0 [Moles/Vol]18 mmol/QDfy12-59NljXjciydSumma Health [facility] Campus Comment on above:Performed By: #### JAMES STARR, 1987-08, 29058-5 #### [facility] ([id number]) [address] [place] [address] 61670 #### 70089-8 #### [facility] ([id number]) [address], [address] [place], [place] [address]Yvczyinup [Moles/Vol]4.5 mmol/LNormal3.5-5.0ProCedar Park Regional Medical CenterComment on above:Performed By: #### JAMES STARR, 1987-08, 15898-4 #### [facility] ([id number]) [address] [place] [address] 12579 #### 07886-8 #### [facility] ([id number]) [address], [address] [place], [place] [address]Zknwyx [Moles/Vol]129 mmol/USvo586-973NzfJewuhmAvita [facility] System [facility] Comment on above:Performed By: #### JAMES STARR, 1987-08, 83644-2 #### [facility] ([id number]) [address] [place] [address] 71682 #### 90169-9 #### [facility] ([id number]) [address], [address] [place], [place] [address]AQQVS UREA NITROGENon 44-41-4603Bgwy nitrogen [Mass/Vol]41 mg/dL High5-27ProHighland District HospitalComment on above:Performed By: #### JAMES, 3094- 0, ENERGY RISK MANAGEMENT ANALYST, ELEC #### [facility] ([id number]) [address], [address] [place], [place] [address]LJL AND AUTO DIFFon 05-05-9643WXSEVOXU BASOPHIL0.2 X10E9/LNormal 0.0-0.2PUniversity Hospitals Geneva Medical CenterComment on above:Performed By: #### JAMES 3094- 0, ENERGY RISK MANAGEMENT ANALYST, ELEC #### [facility] ([id number]) [address], [address] [place], [place] [address]Thekgdwbg/100 WBC (Bld)1.9 %NormalEast [facility] Regional Hospital Comment on above:Performed By: #### JAMES 309-0, ENERGY RISK MANAGEMENT ANALYST, ELEC #### [facility] ([id number]) [address], [address] [place], [place] [address]MHLI6+AbnormalNONEPUniversity Hospitals Geneva Medical CenterComment on above: Performed By: #### JAMES 309-0, ENERGY RISK MANAGEMENT ANALYST, ELEC #### [facility] ([id number]) [address], [address] [place], [place] [address]Upfjojrjlra (Bld) [#/Vol]0.4 10*3/uLNormal0.0-0.4ProHighland District HospitalComment on above:Performed By: #### JAMES 309-0, ENERGY RISK MANAGEMENT ANALYST, ELEC #### [facility] ([id number]) [address], [address] [place], [place] [address]Sxukdgelvrm/100 WBC (Bld)3.8 %NormalEast Ohio Regional Hospital Comment on above:Performed By: #### JAMES 309-0, ENERGY RISK MANAGEMENT ANALYST, ELEC #### [facility] ([id number]) [address], [address] [place], [place] [address]Wkkbrfjcwrl distribution width (RBC) [Ratio]14.4 %Normal 11.5-15.0ProHighland District HospitalComment on above:Performed By: #### JAMES, 3094-0, ENERGY RISK MANAGEMENT ANALYST, ELEC #### [facility] ([id number]) [address], [address] [place], [place] [address]Ndmgruladz (Bld) [Volume fraction]40.3 %Szyith38-24VdqBshmnd [facility] City HospitalComment on above:Performed By: #### CBCA, 3094-0, ENERGY RISK MANAGEMENT ANALYST, ELEC #### [facility] ([id number]) [address], [address] [place], [place] [address]Iiclhqlgkb (Bld) [Mass/Vol]13.4 g/gQZytrve89.0-17.0ProOhiohealth Southeastern Medical Centerca [facility] City HospitalComment on above:Performed By: #### CBCA, 3094-0, ENERGY RISK MANAGEMENT ANALYST, ELEC #### [facility] ([id number]) [address], [facility] [address] [place], [place] [address]Tmxxzmzngei (Bld) [#/Vol]2.0 10*3/uLNormal1.0-3.5Pro[facility] City HospitalComment on above:Performed By: #### CBCA, 3094-0, ENERGY RISK MANAGEMENT ANALYST, ELEC #### [facility] ([id number]) [address], [address] [place], [place] [address]Astfcgenmys/100 WBC (Bld)21.7 %NormalProChildren'S Hospital Of [facility] Hospital Comment on above:Performed By: #### CBCA, 3094-0, ENERGY RISK MANAGEMENT ANALYST, ELEC #### [facility] ([id number]) [address], [facility] [address] [place], [place] [address]KTV (RBC) [Entitic mass]29.6 auRnfotf02-66SrzMcserd [place]edo HospitalComment on above:Performed By: #### CBCA, 3094-0, ENERGY RISK MANAGEMENT ANALYST, ELEC #### [facility] ([id number]) [address], [address] [place], [place] [address]WSRX (RBC) [Mass/Vol]33.4 g/xFJfhotm60-52PreWaxyar [place] HospitalComment on above:Performed By: #### CBCA, 3094-0, ENERGY RISK MANAGEMENT ANALYST, ELEC #### [facility] ([id number]) [address], [address] [place], [place] [address]OIY (RBC) [Entitic vol]89 zQGbkbrb08-684FvbBhoipu [facility] City HospitalComment on above:Performed By: #### JAMES, 3094-0, ENERGY RISK MANAGEMENT ANALYST, ELEC #### [facility] ([id number]) [address], [address] [place], [place] [address]Jrtauuhkf (Bld) [#/Vol]0.6 10*3/uLNormal0-0.9Pro[facility]ica [facility] City HospitalComment on above:Performed By: #### JAMES, 3094-0, ENERGY RISK MANAGEMENT ANALYST, ELEC #### [facility] ([id number]) [address], [address] [place], [place] [address]Vptkrzabw/100 WBC (Bld)6.6 %NormalProChildren'S Hospital Of [facility] Hospital Comment on above:Performed By: #### JAMES, 3094-0, ENERGY RISK MANAGEMENT ANALYST, ELEC #### [facility] ([id number]) [address], [address] [place], [place] [address]Yuedokjdpwp (Bld) [#/Vol]6.1 10*3/uLNormal1.5-6.6ProOhiohealth Southeastern Medical Centerca [facility] City HospitalComment on above:Performed By: #### JAMES, 3094-0, ENERGY RISK MANAGEMENT ANALYST, ELEC #### [facility] ([id number]) [address], [address] [place], [place] [address]Tvfyrkhw mean volume (Bld) [Entitic vol]8.0 fLNormal7-12 [facility] HospitalComment on above:Performed By: #### CBCJarrett, 3094-0, ENERGY RISK MANAGEMENT ANALYST, ELEC #### [facility] ([id number]) [address], [address] [place], [place] [address]Obretfgor (Bld) [#/Vol]253 10*3/bODjizgm402-806TbrFycylr [facility] HospitalComment on above:Performed By: #### CBCJarrett, 3094-0, ENERGY RISK MANAGEMENT ANALYST, ELEC #### [facility] ([id number]) [address] [address] [place] [address]GMG COUNT4.54 X10E12/LNormal4.10-5.70[facility] Comment on above:Performed By: #### JAMES, 3094-0, ENERGY RISK MANAGEMENT ANALYST, ELEC #### [facility] ([id number]) [address] [address]OTN DXPMQWJJCW95.0 %NormalProChildren'S Hospital Of Columbus HospitalComment on above:Performed By: #### JAMES, 3094-0, ENERGY RISK MANAGEMENT ANALYST, ELEC #### [facility] ([id number]) [address] [address]EAA (Bld) [#/Vol]9.3 10*3/uLNormal4.0-11.0ProHighland District HospitalComment on above:Performed By: #### JAMES, 3094-0, ENERGY RISK MANAGEMENT ANALYST, ELEC #### [facility] ([id number]) [address] [address]QOJAWQKEWUzr 24-07-2156Epzyugcoha [Mass/Vol]3.18 mg/dLHigh 0.60-1.30East [facility] Regional HospitalComment on above:Result Comment: METHOD TRACEABLE TO IDMS STANDARDPerformed By: #### JAMES, 3094-0, ENERGY RISK MANAGEMENT ANALYST, ELEC #### [facility] ([id number]) [address] [address]GRL/1.73 sq M.predicted among non-blacks MDRD (S/P/Bld) [Vol rate/Area]21 mL/min/{1.73_m2}Low>59ProHighland District HospitalComment on above: Result Comment: Reported eGFR is based on the CKD-EPI 2020 equation that does not use a race coefficient.Performed By: #### JAMES, 3094-0, ENERGY RISK MANAGEMENT ANALYST, ELEC #### [facility] ([id number]) [address] [facility] [address] [place], [place] [address]PKCNVGXFDZDBlx 18-49-2766Edueb gap [Moles/Vol]9 mmol/LNormal5-15 [facility] HospitalComment on above:Performed By: #### JAMES, 3094-0, ENERGY RISK MANAGEMENT ANALYST, ELEC #### [facility] ([id number]) [address], [address] [place], [place] [address]Tokydofd [Moles/Vol]100 mmol/DKinnbc23-208DqgGckkzy [facility] HospitalComment on above:Performed By: #### JAMES, 3094-0, ENERGY RISK MANAGEMENT ANALYST, ELEC #### [facility] ([id number]) [address], [address] [place], [place] [address]MK9 [Moles/Vol]22 mmol/ZUabixw68-15LgcVngpzp [facility] Comment on above:Performed By: #### JAMES, 3094-0, ENERGY RISK MANAGEMENT ANALYST, ELEC #### [facility] ([id number]) [address], [address] [place], [place] [address]Oxbfggygm [Moles/Vol]3.9 mmol/LNormal3.5-5.0ProHighland District HospitalComment on above:Performed By: #### JAMES, 3094-0, ENERGY RISK MANAGEMENT ANALYST, ELEC #### [facility] ([id number]) [address], [address] [place], [place] [address]Qzbssb [Moles/Vol]131 mmol/VQyi608-980QrsAbfobhHighland District Hospital Comment on above:Performed By: #### JAMES, 3094-0, ENERGY RISK MANAGEMENT ANALYST, ELEC #### [facility] ([id number]) [address], [address] [place], [place] [address]MR VENOUS DOPPLER LE LTon 18-40-8678E[address] [address] Ultrasound Report Signed Patient: RASHARD LYMAN MR#: [id number] : 1960 Acct:[id number] Age/Sex: 63 / M ADM Date: 11/19/23 Loc: US Attending Dr: Ajay Archer M.D. Ordering Physician: Ajay Archer M.D. Date of Service: 11/19/23 Procedure(s): US venous doppler LE LT Accession Number(s): [id number] cc: Chino Elliott D.P.M.; Ajay Archer M.D. The [place] [id number] Patient Name: RASHARD LYMAN MRN: [id number] date: 1960 Sex: M Assigned Patient Location: US Current Patient Location: US Accession/Order Number: [id number] Exam Date: 11/19/2023 16:06 Report Date: 11/19/2023 [...] M.D. Signed By: 11/19/231726 DD/ 23 TD/TT: Meat Hanger:PEPEadiology, Radiologist, - 11/19/[address] [address] Ultrasound Report Signed Patient: RASHARD LYMAN MR#: [id number] : 1960 Acct:[id number] Age/Sex: 63 / M ADM Date: 11/19/23 Loc: US Attending Dr: Ajay Archer M.D. Ordering Physician: Ajay Archer M.D. Date of Service: 11/19/23 Procedure(s): US venous doppler LE LT Accession Number(s): [id number] cc: Chino Elliott D.P.M.; Ajay Archer M.D. [place] [id number] Patient Name: RASHARD LYMAN MRN: [id number] date: 1960 Sex: M Assigned Patient Location: US Current Patient Location: US Accession/Order Number: [id number] Exam Date: 11/19/2023 16:06 Report Date: 11/19/2023 [...] M.D. Signed By: 11/19/231726 DD/ 23 TD/TT: Meat Hanger: HERNANDEZ HealthcareRadiology Study observation (narrative)[facility] VENOUS DOPPLER LE LTOrdered By: Radiologist Radiology on 61-89-3573[address] [place] [address] Work Phone: bLOOD UREA NITROGENon 85-58-5472Dnon nitrogen [Mass/Vol]35 mg/dLHigh5-27ProCedar Park Regional Medical CenterComment on above:Performed By: #### JAMES STARR, 1987-08, 41907-8 #### [facility] ([id number]) [address] [place] [address] #### 23834-2 #### [facility] ([id number]) [address], [address] [place], [place] [address]JWANXOEiv 62-72-7874Rbwkwis [Mass/Vol]8.1 mg/dLLow8.5-10.5 ProMCalifornia Hospital Medical CenterComment on above:Performed By: #### JAMES STARR, 1987-08, 87802-6 #### [facility] ([id number]) [address] [place] [address] 96598 #### 42834-3 #### [facility] ([id number]) [address] [facility], [address] [place], [place] [address]RMO AND AUTO DIFFon 67-84-6355LGZZXWPP BASOPHIL0.0 X10E9/LNormal 0.0-0.2[facility] Community HospitalComment on above:Performed By: #### JAMES STARR, 1987-08, 89280-5 #### [facility] ([id number]) [address] [place] [address] #### 45727-3 #### [facility] ([id number]) [address] [facility], [address] [place], [place] [address]QFSYVCNM NEUTROPHIL5.4 X10E9/LNormal1.5-6.6ProCedar Park Regional Medical CenterComment on above:Performed By: #### JAMES STARR, 1987-08, 90512-8 #### [facility] ([id number]) [address] [place] [address] [place] [address] #### 84090-0 #### [facility] ([id number]) [facility] [facility], [address] [place], [place] [address]Ssynwrduo/100 WBC (Bld)0.5 %[facility] Comment on above:Performed By: #### JAMES STARR, 1987-08, 24733-9 #### [facility] ([id number]) [address] [place] [address] 19105 #### 63877-3 #### [facility] ([id number]) [address] [place] [address], [address] [place], [place] [address]Sudajpajzqn (Bld) [#/Vol]0.3 10*3/uLNormal0.0-0.4ProCedar Park Regional Medical CenterComment on above:Performed By: #### JAMES STARR, 1987-08, 19561-5 #### [facility] ([id number]) [address] [place] [address] 19056 #### 01970-5 #### [facility] ([id number]) [address] [place] [address], [address] [place], [place] [address]Mkpswztvrks/100 WBC (Bld)3.2 %NormalAvita Health System Ontario Hospital Comment on above:Performed By: #### JAMES STARR, 1987-08, 66417-7 #### [facility] ([id number]) [address] [place] [address] #### 60582-1 #### [facility] ([id number]) [address] [place] [address], [address] [place], [place] [address]Eyvfasutouo distribution width (RBC) [Ratio]14.4 %Normal 11.5-15.0ProCedar Park Regional Medical CenterComment on above:Performed By: #### JAMES STARR, 1987-08, 39789-1 #### [facility] ([id number]) [address] [place] [address] 82808 #### 66481-8 #### [facility] ([id number]) [address] [place], [place] [address]Imqnrszsve (Bld) [Volume fraction]39.7 %Qruolq97-62MfdOuguoqCedar Park Regional Medical CenterComment on above:Performed By: #### MATTY CBCA, 1987-08, 07206-1 #### [facility] ([id number]) [address] [place] [address] #### 46996-0 #### [facility] ([id number]) [address], [address] [place], [place] [address]Ypqpdlcwtt (Bld) [Mass/Vol]13.1 g/uYJxiuld29.0-17.0ProCedar Park Regional Medical CenterComment on above:Performed By: #### MATTY, CBCA, 1987-08, 71133-9 #### [facility] ([id number]) [address] [place] [address] #### 90505-7 #### [facility] ([id number]) [address], [address] [place], [place] [address]Uvlnkdphqql (Bld) [#/Vol]2.1 10*3/uLNormal1.0-3.5Pro[facility] Community HospitalComment on above:Performed By: #### MATTY, CBCA, 1987-08, 83416-2 #### [facility] ([id number]) [address] [place] [address] #### 06456-2 #### [facility] ([id number]) [address], [address] [place], [place] [address]Vfqefoybvbt/100 WBC (Bld)24.5 %NormalProCedar Park Regional Medical Center Comment on above:Performed By: #### MATTY, CBCA, 1987-08, #### [facility] ([id number]) [address] [place] [address] #### 18178-5 #### [facility] ([id number]) [address], [address] [place], [place] [address]OUV (RBC) [Entitic mass]29.0 ajXabndr97-14JysLfhxgmCedar Park Regional Medical CenterComment on above:Performed By: #### MATTY, CBCA, 1987-08, #### [facility] ([id number]) [address] [place] [address] #### 82230-6 #### [facility] ([id number]) [address], [address] [place], [place] [address]SCGJ (RBC) [Mass/Vol]32.9 g/cQXixiaq94-95XcgCsumfrCedar Park Regional Medical CenterComment on above:Performed By: #### JAMES STARR, 1987-08, #### [facility] ([id number]) [address] [place] [address] #### 32124-5 #### [facility] ([id number]) [address] [place], [place] [address]CBA (RBC) [Entitic vol]88 kRQeydwv62-291QaeUcpojx [facility] HospitalComment on above:Performed By: #### MATTY, CBCA, 1987-08, #### [facility] ([id number]) [address] [place] [address] #### 48896-0 #### [facility] ([id number]) [address], [address] [place], [place] [address]Okfmaosvt (Bld) [#/Vol]0.8 10*3/uLNormal0-0.9ProEvergreen Medical Center Sapelo Island HospitalComment on above:Performed By: #### BMP, CBCA, 1987-08, 04512-8 #### [facility] ([id number]) [address] [place] [address] #### 18462-5 #### [facility] ([id number]) [address], [address] [place], [place] [address]Mzjmpvhmr/100 WBC (Bld)9.2 %[facility] Comment on above:Performed By: #### MATTY, CBCA, 1987-08, 76986-8 #### [facility] ([id number]) [address] [place] [address] #### 43086-1 #### [facility] ([id number]) [address] [facility], [address] [place], [place] [address]Xrvdauxwinn/100 WBC (Bld)62.6 %[facility] Comment on above:Performed By: #### BMP, CBCA, 1987-08, 91446-2 #### [facility] ([id number]) [address] [place] [address] #### 46208-6 #### [facility] ([id number]) [address] [place], [place] [address]Wwbljgtn mean volume (Bld) [Entitic vol]8.6 fLNormal7-12 [facility] HospitalComment on above:Performed By: #### BMP, CBCA, 1987-08, 39686-8 #### [facility] ([id number]) [address] [place] [address] #### 25066-2 #### [facility] ([id number]) [address] [place], [place] [address]Jgibyywpp (Bld) [#/Vol]247 10*3/uPGziwpt264-144JhsIqceka [facility] HospitalComment on above:Performed By: #### JAMES STARR, 1987-08, 55326-7 #### [facility] ([id number]) [address] [place] [address] 377[address] #### 59053-0 #### [facility] ([id number]) [address] [place] [address], [address] [place], [place] [address]RMQ COUNT4.51 X10E12/LNormal4.10-5.70[facility] Comment on above:Performed By: #### JAMES STARR, 1987-08, #### [facility] ([id number]) [address] [place] [address] 20791 #### 71542-2 #### [facility] ([id number]) [address] [place] [address], [address] [place], [place] [address]EVN (Bld) [#/Vol]8.5 10*3/uLNormal4.0-11.0ProCedar Park Regional Medical CenterComment on above:Performed By: #### JAMES STARR, 1987-08, 13957-0 #### [facility] ([id number]) [address] [place] [address] 35017 #### 19491-1 #### [facility] ([id number]) [address] [place] [address], [address] [place], [place] [address]YODBMKPLKNzo 48-87-6373Jcgfvabgzj [Mass/Vol]2.69 mg/dLHigh 0.70-1.20ProCedar Park Regional Medical CenterComment on above:Result Comment: METHOD TRACEABLE TO IDMS STANDARDPerformed By: #### JAMES STARR, 1987-08, 23904-9 #### [facility] ([id number]) [address] [place] [address] 13140 #### 30156-8 #### [facility] ([id number]) [address], [address] [place], [place] [address]TBE/1.73 sq M.predicted among non-blacks MDRD (S/P/Bld) [Vol rate/Area]26 mL/min/{1.73_m2}Low>59Pro[facility] Community HospitalComment on above: Result Comment: Reported eGFR is based on the CKD-EPI 2020 equation that does not use a race coefficient.Performed By: #### JAMES STARR, 1987-08, 64436-7 #### [facility] ([id number]) [address] [place] [address] 31217 #### 46138-6 #### [facility] ([id number]) [address], [address] [place], [place] [address]Osviehb.ionized (Bld) [Moles/Vol]on 40-95-4891CYWDAUQS ICA4.8 mg/dLNormal4.5-5.3[facility] HospitalComment on above:Performed By: #### JAMES STARR, 1987-08, 25793-2 #### [facility] ([id number]) [address] [place] [address] 99486 #### 89713-1 #### [facility] ([id number]) [address], [address] [place], [place] [address]QFNTKEJPWHLGke 80-68-9525Xpofm gap [Moles/Vol]5 mmol/LNormal5-15 [facility] HospitalComment on above:Performed By: #### JAMES STARR, 1987-08, 91552-9 #### [facility] ([id number]) [address] [place] [address]37 #### 81685-9 #### [facility] ([id number]) [address], [address] [place], [place] [address]Dqimkmtj [Moles/Vol]108 mmol/MKmnodx80-736YqwKiervzCedar Park Regional Medical CenterComment on above:Performed By: #### JAMES STARR, 1987-08, 57501-8 #### [facility] ([id number]) [address] [place] [address] 90433 #### 74383-1 #### [facility] ([id number]) [address], [address] [place], [place] [address]XU9 [Moles/Vol]18 mmol/KAqq88-95CaiFgjhqtSumma Health [facility] Comment on above:Performed By: #### JAMES STARR, 1987-08, 18631-9 #### [facility] ([id number]) [address] [place] [address] 79818 #### 60261-0 #### [facility] ([id number]) [address], [address] [place], [place] [address]Xygfyspyr [Moles/Vol]4.1 mmol/LNormal3.5-5.0ProCedar Park Regional Medical CenterComment on above:Performed By: #### JAMES STARR, 1987-08, 65415-7 #### [facility] ([id number]) [address] [place] [address]20 #### 23529-8 #### [facility] ([id number]) [address], [address] [place], [place] [address]Nlwyjo [Moles/Vol]131 mmol/AWji363-466BxuEsvvprAvita Health System [facility] Comment on above:Performed By: #### JAMES STARR, 1987-08, 07726-5 #### [facility] ([id number]) [address] [place] [address] 06778 #### 10707-7 #### [facility] ([id number]) [address], [address] [place], [place] [address]NYD Photometric method (Bld) [Velocity]on 88-68-0314UJN, ERYTHROCYTE SEDIMENTATION RATE89 mm/hHigh0-20ProCedar Park Regional Medical CenterComment on above:Performed By: #### JAMES STARR, 1987-08, 93084-0 #### [facility] ([id number]) [address] [place] [address] 41080 #### 71343-8 #### [facility] ([id number]) [address], [address] [place], [place] [address]WML A1C (GLYCO-HGB)on 10-16-9851Fzkeexf [Mass/Vol]235 mg/dL NormalProCedar Park Regional Medical CenterComment on above:Performed By: #### JAMES STARR, 1987-08, 75788-1 #### [facility] ([id number]) [address] [place] [address] 93511 #### 75145-8 #### [facility] ([id number]) [address], [address] [place], [place] [address]NtD6d (Bld) [Mass fraction]9.8 %High4.4-5.6ProCedar Park Regional Medical CenterComment on above:Result Comment: NOTE ADA Guidelines Result HgbA1c Normal : less than 5.7 % Prediabetes : 5.7 % to 6.4 % Diabetes : > 6.4 % Use with caution in patients with abnormal hemoglobin variants as the half-life of red blood cells and in vivo glycation rates are affected.Performed By: #### JAMES STARR, 1987-08, 16608-9 #### [facility] ([id number]) [address] [place] [address] 25514 #### 64223-0 #### [facility] ([id number]) [address], [address] [place], [place] [address]BOMYT PANELon 75-18-1660Bkzfymv [Mass/Vol]2.8 g/dLLow3.2-5.3 [facility] HospitalComment on above:Performed By: #### JAMES STARR, 1987-08, 62046-8 #### [facility] ([id number]) [address] [place] [address] 17991 #### 55640-3 #### [facility] ([id number]) [address] [facility], [address] [place], [place] [address]JCJ [Catalytic activity/Vol]86 U/CIgvats85-524BvlJwugyuCedar Park Regional Medical CenterComment on above:Performed By: #### JAMES STARR, 1987-08, 96390-4 #### [facility] ([id number]) [address] [place] [address] 22217 #### 33144-4 #### [facility] ([id number]) [address] [facility], [address] [place], [place] [address]DXL [Catalytic activity/Vol]19 U/LNormal0-40ProCedar Park Regional Medical CenterComment on above:Performed By: #### JAMES STARR, 1987-08, 51176-3 #### [facility] ([id number]) [address] [place] [address] 81291 #### 98498-7 #### [facility] ([id number]) [address] [facility], [address] [place], [place] [address]JRQ [Catalytic activity/Vol]15 U/LNormal0-41ProCedar Park Regional Medical CenterComment on above:Performed By: #### JAMES STARR, 1987-08, 88146-1 #### [facility] ([id number]) [address] [place] [address] 59405 #### 98417-0 #### [facility] ([id number]) [address] [facility], [address] [place], [place] [address]Ozzwmbqat [Mass/Vol]0.5 mg/dLNormal0.3-1.2ProMedCommunity Hospital of San BernardinoComment on above:Performed By: #### JAMES STARR, 1987-08, 86735-7 #### [facility] ([id number]) [address] [place] [address] 62967 #### 34609-2 #### [facility] ([id number]) [address] [place] [address], [address] [place], [place] [address]Mjuvqvvdt.indirect [Mass/Vol]mg/dLNormal0.0-0.4ProCedar Park Regional Medical CenterComment on above:Performed By: #### JAMES STARR, 1987-08, 35759-4 #### [facility] ([id number]) [address] [place] [address] 61012 #### 91631-3 #### [facility] ([id number]) [address] [place] [address], [address] [place], [place] [address]Wiylywh [Mass/Vol]6.4 g/dLNormal6.0-8.0ProCedar Park Regional Medical CenterComment on above:Performed By: #### JAMES STARR, 1987-08, 03382-9 #### [facility] ([id number]) [address] [place] [address] 59448 #### 64643-9 #### [facility] ([id number]) [address] [place] [address], [address] [place], [place] [address]Axuhq 1996 panelon 77-29-0066Dgnmrrtrmky [Mass/Vol]135 mg/dLLow 150-200ProCedar Park Regional Medical CenterComment on above:Performed By: #### JAMES STARR, 1987-08, 24207-3 #### [facility] ([id number]) [address] [place] [address] 71099 #### 20310-6 #### [facility] ([id number]) [address] [facility], [address] [place], [place] [address]Owxgevgeznm in HDL [Mass/Vol]40 mg/dLNormal>39ProCedar Park Regional Medical CenterComment on above:Result Comment: HDL <40 mg/dL - High Risk HDL > or = 40mg/dL- Desirable HDL >60 mg/dL - Negative Risk Performed By: #### JAMES STARR, , 06453-4 #### [facility] ([id number]) [address] [place] [address] 24815 #### 44985-4 #### [facility] ([id number]) [address] [facility], [address] [place], [place] [address]Hcopxcwnzee in LDL [Mass/Vol]57 mg/dLNormal<130ProCedar Park Regional Medical CenterComment on above:Result Comment: LDL <100 mg/dL - Desirable LDL >160 mg/dL - High Risk Performed By: #### JAMES STARR, , 11786-0 #### [facility] ([id number]) [address] [place] [address] 14409 #### 99604-4 #### [facility] ([id number]) [address] [facility], [address] [place], [place] [address]Jdmjgforevt in VLDL [Mass/Vol]38 mg/dLHigh0-30ProCedar Park Regional Medical CenterComment on above:Performed By: #### JAMES STARR, 1987-08, 13412-6 #### [facility] ([id number]) [address] [place] [address] 96403 #### 31633-0 #### [facility] ([id number]) [address] [facility], [address] [place], [place] [address]TXNAFQDCDYJ:HDL3.3Wprvqt1.0-5.0[facility] Ontario HospitalComment on above:Performed By: #### JAMES STARR, 1987-08, 31223-2 #### [facility] ([id number]) [address] [place] [address] 73818 #### 64797-4 #### [facility] ([id number]) [address] [place] [address], [address] [place], [place] [address]Kskapvzsubef [Mass/Vol]192 mg/hWHvpu55-525WiyFdyalgCedar Park Regional Medical CenterComment on above:Performed By: #### JAMES STARR, 1987-08, 91356-2 #### [facility] ([id number]) [address] [place] [address] 71670 #### 42604-8 #### [facility] ([id number]) [address] [place] [address], [address] [place] [address]PHOCMZYOWcp 34-02-9887Nfwxmajew [Mass/Vol]2.1 mg/dLNormal1.8-2.6 [facility] HospitalComment on above:Performed By: #### JAMES STARR, 1987-08, 92004-2 #### [facility] ([id number]) [address] [place] [address] 12200 #### 58806-7 #### [facility] ([id number]) [address] [place] [address], [address] [place] [address]Exxtmipxgyw peptide.B prohormone N-Terminal IA [Mass/Vol]on 23-23-8766Chdmclfbkji peptide B (Bld) [Mass/Vol]1528 pg/mLHigh<=88ProCedar Park Regional Medical CenterComment on above:Result Comment: NOTE NT-proBNP [...] absence of renal failure. Test Performed by: [facility] [place] [address] Raise Drill Operator: Brittani Nieves Ph.D.; CLIA# [id number] By: #### MATTY CBCA, 1987-08, 56590-0 #### [facility] ([id number]) [address] [place] [address] 23517 #### 44345-4 #### [facility] ([id number]) [address] [place] [address], [address] [place], [place] [address]Rfpfdkzn specific Ag [Mass/Vol]on 34-45-4835QBN SCREEN1.65 ng/mL Normal0.00-4.00ProCedar Park Regional Medical CenterComment on above:Result Comment: The method used for this test is Rufus Rommel DXI chemiluminescent immunoassay. Values obtained by different assay methods cannot be used interchangeably.Performed By: #### MATTY, CBCA, 1987-08, 01290-8 #### [facility] ([id number]) [address] [place] [address] 32793 #### 85964-1 #### [facility] ([id number]) [address] [facility], [address] [place], [place] [address]Pubbdpm D+Metabolites [Mass/Vol]on 14-70-6250RDIGHVS D 25 HYD TOT8.3 ng/pOByq04-250OogOvbpktCedar Park Regional Medical CenterComment on above:Result Comment: Vitamin D status 25 [place] Vitamin D Deficiency <20 ng/mL Insufficiency 20-29 ng/mL Sufficiency 30-100 ng/mL Toxicity >100 ng/mL NOTE: A pediatric reference range has not been established by the bridge crane operator of this kit. The [place] [employer] recommends a Vitamin D level of = or >20ng/mL in infants and children.Performed By: #### JAMES STARR, 1987-08, 08418-3 #### [facility] ([id number]) [address] [place] [address] 28582 #### 39147-0 #### [facility] ([id number]) [address], [address] [place], [place] [address]NEPQL UREA NITROGENon 72-85-2751Hsev nitrogen [Mass/Vol]33 mg/dL High5-27ProCedar Park Regional Medical CenterComment on above:Performed By: #### JAMES STARR, 1987-08, 21083-4 #### [facility] ([id number]) [address] [place] [address] 06557 #### 15330-5 #### [facility] ([id number]) [address], [address] [place], [place] [address]TFCRFDCZLCiv 63-32-6968Xypqrvrogk [Mass/Vol]2.42 mg/dLHigh 0.70-1.20ProCedar Park Regional Medical CenterComment on above:Result Comment: METHOD TRACEABLE TO IDUT STANDARDPerformed By: #### JAMES STARR, 1987-08, 27702-4 #### [facility] ([id number]) [address] [place] [address] 02017 #### 12431-3 #### [facility] ([id number]) [address], [address] [place], [place] [address]TMV/1.73 sq M.predicted among non-blacks MDRD (S/P/Bld) [Vol rate/Area]29 mL/min/{1.73_m2}Low>59ProCedar Park Regional Medical CenterComment on above: Result Comment: Reported eGFR is based on the CKD-EPI 2020 equation that does not use a race coefficient.Performed By: #### JAMES STARR, 1987-08, 91900-1 #### [facility] ([id number]) [address] [place] [address] 08069 #### 17176-8 #### [facility] ([id number]) [address], [address] [place], [place] [address]DSNJYWWMMJXXlz 12-74-4222Mgose gap [Moles/Vol]7 mmol/LNormal5-15 [facility] HospitalComment on above:Performed By: #### JAMES STARR, 1987-08, 34594-3 #### [facility] ([id number]) [address] [place] [address] 26602 #### 30005-5 #### [facility] ([id number]) [address], [address] [place], [place] [address]Psrcaqos [Moles/Vol]106 mmol/DNuxynx88-780SvgSnnocm Broadway Community HospitalComment on above:Performed By: #### JAMES STARR, 1987-08, 78197-3 #### [facility] ([id number]) [address] [place] [address] 00830 #### 39297-8 #### [facility] ([id number]) [address], [address] [place], [place] [address]OL5 [Moles/Vol]21 mmol/YHnv17-57ZzcEzixpr [facility] Comment on above:Performed By: #### JAMES STARR, 1987-08, 50736-2 #### [facility] ([id number]) [address] [place] [address] 31281 #### 38052-8 #### [facility] ([id number]) [address], [address] [place], [place] [address]Ihqdykcke [Moles/Vol]4.2 mmol/LNormal3.5-5.0ProCedar Park Regional Medical CenterComment on above:Performed By: #### JAMES STARR, 1987-08, 17626-6 #### [facility] ([id number]) [address] [place] [address] 03439 #### 34321-7 #### [facility] ([id number]) [address] [place] [address], [address] [place], [place] [address]Jvqnuu [Moles/Vol]134 mmol/LGzxdun842-684YwnFunfxs [facility]ont HospitalComment on above:Performed By: #### JAMES STARR, 1987-08, 84885-1 #### [facility] ([id number]) [address] [place] [address] 39099 #### 46301-3 #### [facility] ([id number]) [address] [place] [address], [address] [place], [place] [address]Znympmmpoug peptide.B prohormone N-Terminal [Mass/Vol]on 15-52-4884YK Pro BNPSee BelowNormalProCedar Park Regional Medical CenterComment on above: Result Comment: NOTE TEST RESULT FLAG UNIT REF.RANGE PRO B Natr Peptide 933 H pg/mL <125 Test Performed By: [facility] [employer] [address] [place] [address] Carpet Layer Helper: Charlotte Hart III #[id number] By: #### JAMES STARR, 1987-08, 51501-5 #### [facility] ([id number]) [address] [place] [address] 64829 #### 93330-0 #### [facility] ([id number]) [address], [address] [place], [place] [address]YRBPP UREA NITROGENon 01-01-3472Zczz nitrogen [Mass/Vol]38 mg/dL High5-27ProCedar Park Regional Medical CenterComment on above:Performed By: #### JAMES STARR, 1987-08, 12636-6 #### [facility] ([id number]) [address] [place] [address] 31481 #### 10079-8 #### [facility] ([id number]) [address] [facility], [address] [place], [place] [address]LPZNHEYCBIje 06-86-3508Phjuzmegkx [Mass/Vol]2.76 mg/dLHigh 0.70-1.20ProCedar Park Regional Medical CenterComment on above:Result Comment: METHOD TRACEABLE TO IDMS STANDARDPerformed By: #### JAMES STARR, 1987-08, 44694-6 #### [facility] ([id number]) [address] [place] [address] 28895 #### 92163-6 #### [facility] ([id number]) [address] [facility], [address] [place], [place] [address]JXK/1.73 sq M.predicted among non-blacks MDRD (S/P/Bld) [Vol rate/Area]25 mL/min/{1.73_m2}Low>59ProCedar Park Regional Medical CenterComment on above: Result Comment: Reported eGFR is based on the CKD-EPI 2020 equation that does not use a race coefficient.Performed By: #### JAMES STARR, 1987-08, 24779-0 #### [facility] ([id number]) [address] [place] [address] 09039 #### 28584-7 #### [facility] ([id number]) [address] [facility], [address] [place], [place] [address]LBEWZMJLCEZIql 24-49-7683Abxap gap [Moles/Vol]7 mmol/LNormal5-15 [facility] HospitalComment on above:Performed By: #### JAMES STARR, 1987-08, 77631-8 #### [facility] ([id number]) [address] [place] [address] 65416 #### 42493-4 #### [facility] ([id number]) [address], [address] [place], [place] [address]Ytjmvhsb [Moles/Vol]104 mmol/DDaoeth18-653FewOjvmgoCedar Park Regional Medical CenterComment on above:Performed By: #### JAMES STARR, 1987-08, 65873-6 #### [facility] ([id number]) [address] [place] [address] 30357 #### 20753-7 #### [facility] ([id number]) [address], [address] [place], [place] [address]SN8 [Moles/Vol]21 mmol/NMtm19-99LzpLegtnt [facility] Comment on above:Performed By: #### JAMES STARR, 1987-08, 12663-6 #### [facility] ([id number]) [address] [place] [address] 22910 #### 82201-4 #### [facility] ([id number]) [address], [address] [place], [place] [address]Vlrzamnaw [Moles/Vol]4.3 mmol/LNormal3.5-5.0ProCedar Park Regional Medical CenterComment on above:Performed By: #### JAMES STARR, 1987-08, 65956-7 #### [facility] ([id number]) [address] [place] [address] 46552 #### 58881-9 #### [facility] ([id number]) [address], [address] [place], [place] [address]Itboru [Moles/Vol]132 mmol/YFog196-404LlmSxowvrAvita Health System Ontario Hospital Comment on above:Performed By: #### JAMES STARR, 1987-08, 69488-2 #### [facility] ([id number]) [address] [place] [address] 22629 #### 38094-6 #### [facility] ([id number]) [address] [facility], [address] [place], [place] [address]Alpcvbtrnkb peptide.B prohormone N-Terminal [Mass/Vol]on 42-18-5022KY Pro BNPSee BelowNormalProCedar Park Regional Medical CenterComment on above: Result Comment: NOTE TEST RESULT FLAG UNIT REF.RANGE PRO B Natr Peptide 1296 H pg/mL <125 Test Performed By: [place] [address] Carpet Layer Helper: Charlotte Hart III #[id number] By: #### JAMES STARR, 1987-08, 66392-8 #### [facility] ([id number]) [address] [place] [address] 45051 #### 42210-6 #### [facility] ([id number]) [address] [facility], [address] [place], [place] [address]ZDSDD UREA NITROGENon 98-95-4973Hwhz nitrogen [Mass/Vol]34 mg/dL High5-27ProCedar Park Regional Medical CenterComment on above:Performed By: #### JAMES STARR, 1987-08, 53773-8 #### [facility] ([id number]) [address] [place] [address] 54990 #### 53092-0 #### [facility] ([id number]) [address] [facility], [address] [place], [place] [address]GCIJKRTGJOky 10-31-5556Brhleozrvu [Mass/Vol]3.13 mg/dLHigh 0.70-1.20[facility] HospitalComment on above:Result Comment: METHOD TRACEABLE TO IDMS STANDARDPerformed By: #### JAMES STARR, 1987-08, 10701-9 #### [facility] ([id number]) [address] [place] [address] 76674 #### 25858-9 #### [facility] ([id number]) [address] [facility], [address] [address]GYM/1.73 sq M.predicted among non-blacks MDRD (S/P/Bld) [Vol rate/Area]22 mL/min/{1.73_m2}Low>59ProCedar Park Regional Medical CenterComment on above: Result Comment: Reported eGFR is based on the CKD-EPI 2020 equation that does not use a race coefficient.Performed By: #### JAMES STARR, 1987-08, 02520-8 #### [facility] ([id number]) [address] [place] [address] 08826 #### 87979-6 #### [facility] ([id number]) [address] [facility], [address] [place], [place] [address]AWTAZCDNSLRTxf 46-85-0902Azswy gap [Moles/Vol]8 mmol/LNormal5-15 ProMCalifornia Hospital Medical CenterComment on above:Performed By: #### JAMES STARR, 1987-08, 46081-9 #### [facility] ([id number]) [address] [place] [address] 23249 #### 95161-1 #### [facility] ([id number]) [address] [place], [place] [address]Kntsrzfy [Moles/Vol]106 mmol/LSvhwnv21-413MxbNcndbrCedar Park Regional Medical CenterComment on above:Performed By: #### JAMES STARR, 1987-08, 80771-9 #### [facility] ([id number]) [address] [place] [address] 14751 #### 09751-9 #### [facility] ([id number]) [address] [facility], [address] [place], [place] [address]UR3 [Moles/Vol]20 mmol/PWbp37-42DgeMfyxrkSumma Health [facility] Campus Comment on above:Performed By: #### JAMES STARR, 1987-08, 88880-4 #### [facility] ([id number]) [address] [place] [address] 54574 #### 17522-0 #### [facility] ([id number]) [address] [facility], [address] [place], [place] [address]Pttzpjvtb [Moles/Vol]4.7 mmol/LNormal3.5-5.0ProCedar Park Regional Medical CenterComment on above:Performed By: #### JAMES STARR, 1987-08, 11533-7 #### [facility] ([id number]) [address] [place] [address] 86407 #### 47749-5 #### [facility] ([id number]) [address] [facility], [address] [place], [place] [address]Ebxyzz [Moles/Vol]134 mmol/USmkhkx519-692CgnTfxzgq [facility] HospitalComment on above:Performed By: #### JAMES STARR, 1987-08, 53761-8 #### [facility] ([id number]) [address] [place] [address] 22960 #### 92711-1 #### [facility] ([id number]) [address] [facility], [address] [place], [place] [address]Fjmhiixgfmb peptide.B prohormone N-Terminal [Mass/Vol]on 27-50-9444BF Pro BNPSee BelowNormalProCedar Park Regional Medical CenterComment on above: Result Comment: NOTE TEST RESULT FLAG UNIT REF.RANGE PRO B Natr Peptide 413 H pg/mL <125 Test Performed By: [place] [address] Carpet Layer Helper: Charlotte Hart III #[id number] By: #### JAMES STARR, 1987-08, 19635-3 #### [facility] ([id number]) [address] [place] [address] 61325 #### 24150-8 #### [facility] ([id number]) [address] [place] [address] [address] [place], [place] [address]HRHFT UREA NITROGENon 70-63-7542Zzbp nitrogen [Mass/Vol]33 mg/dL High5-27ProCedar Park Regional Medical CenterComment on above:Performed By: #### JAMES STARR, 1987-08, 25223-5 #### [facility] ([id number]) [address] [place] [address] 14042 #### 24659-0 #### [facility] ([id number]) [address] [place] [address], [address] [place], [place] [address]PONNRVFMLAyp 72-88-6738Veeknwqmgr [Mass/Vol]2.37 mg/dLHigh 0.70-1.20ProCedar Park Regional Medical CenterComment on above:Result Comment: METHOD TRACEABLE TO IDMS STANDARDPerformed By: #### JAMES STARR, 1987-08, 03877-6 #### [facility] ([id number]) [address] [place] [address] 57532 #### 27250-5 #### [facility] ([id number]) [address] [facility], [address] [place], [place] [address]EYY/1.73 sq M.predicted among non-blacks MDRD (S/P/Bld) [Vol rate/Area]30 mL/min/{1.73_m2}Low>59ProCedar Park Regional Medical CenterComment on above: Result Comment: Reported eGFR is based on the CKD-EPI 2020 equation that does not use a race coefficient.Performed By: #### JAMES STARR, 1987-08, 43209-7 #### [facility] ([id number]) [address] [place] [address] 59995 #### 39128-2 #### [facility] ([id number]) [address] [facility], [address] [place], [place] [address]VXEOTYNIXNTMju 61-15-5835Tdnmm gap [Moles/Vol]7 mmol/LNormal5-15 [facility] HospitalComment on above:Performed By: #### JAMES STARR, 1987-08, 84261-7 #### [facility] ([id number]) [address] [place] [address] 05140 #### 86032-0 #### [facility] ([id number]) [address] [facility], [address] [place], [place] [address]Gdztuhnf [Moles/Vol]106 mmol/MIzahok43-678HiaTorxtwCedar Park Regional Medical CenterComment on above:Performed By: #### JAMES STARR, 1987-08, 56807-8 #### [facility] ([id number]) [address] [place] [address] #### 44295-5 #### [facility] ([id number]) [address] [facility], [address] [place], [place] [address]BN9 [Moles/Vol]20 mmol/RAcq53-68HrtWxcmcaSumma Health [facility] Campus Comment on above:Performed By: #### JAMES STARR, 1987-08, 48344-0 #### [facility] ([id number]) [address] [place] [address] #### 69166-3 #### [facility] ([id number]) [address] [facility], [address] [place], [place] [address]Vqqbnhkje [Moles/Vol]4.6 mmol/LNormal3.5-5.0[facility] HospitalComment on above:Performed By: #### JAMES STARR, 1987-08, 63183-8 #### [facility] ([id number]) [address] [place] [address] #### 08027-4 #### [facility] ([id number]) [address] [facility], [address] [place], [place] [address]Yicvpg [Moles/Vol]133 mmol/ICwx836-676SiqGyvypwAvita Health System [facility] Hospital Comment on above:Performed By: #### JAMES STARR, 1987-08, 52162-3 #### [facility] ([id number]) [address] [place] [address] #### 26457-8 #### [facility] ([id number]) [address] [facility], [address] [place], [place] [address]Umoimquiysv peptide.B prohormone N-Terminal [Mass/Vol]on 07-77-2079EM Pro BNPSee BelowNormalProCedar Park Regional Medical CenterComment on above: Result Comment: NOTE TEST RESULT FLAG UNIT REF.RANGE PRO B Natr Peptide 526 H pg/mL <125 Test Performed By: [facility] [employer] [address] [address] Carpet Layer Helper: Charlotte Hart III #[id number] By: #### BMP, CBCA, 1988-5, 07964-5 #### [facility] ([id number]) [address] [facility], [place] [address] #### 27751-4 #### [facility] ([id number]) [address] [place] [address], [address] [place], [place] [address]Smbp,Urineon 70-81-5527Ngsy,UrineSpecimen Description .VOIDED URINE Culture ESCHERICHIA COLI >100,000 [...] SUSCEPTIBLE Tobramycin 4 SUSCEPTIBLE Trimethoprim/Sulfa >=320 RESISTANTResistantMercy Sharon HospitalComment on above:Performed By: #### URC #### [facility] [address] [place], [place] [id number] Raise Drill Operator: Griffin Carrion MD [facility] [address] [place] [address] Raise Drill Operator: WAYNE Mccann w/Reflex Cultureon 17-26-7324Tbcbqsnvx, SemiQt,UrNegativeNormalNEGMercy Sharon HospitalComment on above:Performed By: #### UAX, UMICAO #### [facility] [address] [place] [address] Raise Drill Operator: Brenda Mccann, UrineTRACEAbnormalNEGParkview Health Bryan Hospital Comment on above:Performed By: #### UAX, UMICAO #### [facility] [address] [place] [address] [place], [place] [id number] Raise Drill Operator: SHANI Mccannlarity (U)SLIGHTLY CLOUDYAbnormalCLEARMercy Opal HospitalComment on above:Performed By: #### UAX, UMICAO #### [facility] [address] [place] [address] [place], [place] [id number] Raise Drill Operator: SHANI Mccannolor (U)YellowNormalYUniversity Hospitals [facility] Comment on above:Performed By: #### UAX, UMICAO #### [facility] [address] [place] [address] [place]. [place], [place] [id number] Raise Drill Operator: Jameson Aaron MDGlucose Ql (U)3+ mg/dLAbnormalNEGDunlap Memorial Hospital HospitalComment on above:Performed By: #### UAX, UMICAO #### [facility] [address] [place] [address] [place], [place] 1731583 Raise Drill Operator: Jameson Aaron MDKetones Ql (U)NegativeNormalNEGDunlap Memorial Hospital HospitalComment on above:Performed By: #### UAX, UMICAO #### [facility] [address] [place] [address] [place], [place] 0811483 Raise Drill Operator: Jameson Aaron MDLeukocyte esterase Test strip Ql (U)TRACEAbnormal NEGDunlap Memorial Hospital HospitalComment on above:Performed By: #### UAX, UMICAO #### [facility] [address] [place] [address] [place], [place] 4701783 Raise Drill Operator: Jeaneth Mccannite,UrNegativeBarberton Citizens Hospital Comment on above:Performed By: #### UAX, UMICAO #### [facility] [address] [place] [address] [place] [address] Raise Drill Operator: CANDACE MccannH,Ur5.0Djpxhm4.0-9.0[facility] HospitalComment on above:Performed By: #### UAX, UMICAO #### [facility] [address] [place] [address] [place], [place] 7075983 Raise Drill Operator: CANDACE Mccannrotein Ql (U)2+ mg/dLAbnormalNEGDunlap Memorial Hospital HospitalComment on above:Performed By: #### UAX, UMICAO #### [facility] [address] [place] [address] Dr. [place], [place] 2865083 Raise Drill Operator: BUCK Mccannpec. [place],Ur1.906Vjif3.010-1.020[facility] HospitalComment on above:Performed By: #### LORI JOSEPHO #### [facility] [address] [place] [address] Dr. [place], [place] 9011183 Raise Drill Operator: Jameson Aaron MDUrobilinogen,UrNormalNormal0.0-1.0[facility] HospitalComment on above:Performed By: #### LORI JOSEPHO #### [address] [place], [place] 7962583 Raise Drill Operator: Jameson Aaron MDUrinalysis,Microon 64-18-5971Muiafstf4+Abnormal NONEMerDelaware County Hospital HospitalComment on above:Performed By: #### JAKE, UMICAO #### [facility] [address] [place] [address] Dr. [place], [place] 5694183 Raise Drill Operator: Jameson Aaron MDEpithelial cells LM Ql (Urine sed)0 TO 1Fzzqlf3-2 [facility] HospitalComment on above:Performed By: #### UAX, UMICAO #### [facility] [address] [place] [address] [place]. [place], [place] 8832483 Raise Drill Operator: Jameson Aaron MDEpithelial, Renal0 TO 3Xmasyf2XsafjParkview Health Bryan HospitalComment on above:Performed By: #### LORI JOSEPHO #### [facility] [address] [place], [place] 8533983 Raise Drill Operator: Edmond Mccann RBC's0 TO 1Btbjrv0-6WylciAvita Health System [facility] Hospital Comment on above:Performed By: #### COURTNEY JOSEPH #### [facility] [address] [place], [place] 2217083 Raise Drill Operator: Edmond Mccann WBC's10 TO 19Zluuae0-4WvtquParkview Health Bryan Hospital Comment on above:Performed By: #### COURTNEY JOSEPH #### [facility] [address] [place], [place] 9098783 Raise Drill Operator: Jamseon Aaron MDYeastPRESENCE NOTEDAbnormalNONEMeWaterbury HospitalComment on above:Performed By: #### COURTNEY JOSEPH #### [facility] [address] [place], [place] 0514583 Raise Drill Operator: BRENDA Mccann UREA NITROGENon 66-32-9974Qcct nitrogen [Mass/Vol]44 mg/dLHigh5-27ProCedar Park Regional Medical CenterComment on above:Performed By: #### ELEC, 3094-0, ENERGY RISK MANAGEMENT ANALYST, 73842-9 #### [facility] ([id number]) [address] [place] [address], [place] [address] #### 56092-3, HA1C #### [facility] ([id number]) [address] [place] [address], [address] [place], [place] [address]EDWEXLRJWQxr 16-34-1346Jbxgyjnhbr [Mass/Vol]2.71 mg/dLHigh 0.70-1.20ProCedar Park Regional Medical CenterComment on above:Result Comment: METHOD TRACEABLE TO IDMS STANDARDPerformed By: #### ELEC, 3094-0, ENERGY RISK MANAGEMENT ANALYST, 86829-9 #### [facility] ([id number]) [address] [place] [address] #### 73429-5, HA1C #### [facility] ([id number]) [address] [place] [address], [address] [place], [place] [address]HVA/1.73 sq M.predicted among non-blacks MDRD (S/P/Bld) [Vol rate/Area]26 mL/min/{1.73_m2}Low>59ProCedar Park Regional Medical CenterComment on above: Result Comment: Reported eGFR is based on the CKD-EPI 2020 equation that does not use a race coefficient.Performed By: #### PHIL, 3094-0, ENERGY RISK MANAGEMENT ANALYST, 21475-3 #### [facility] ([id number]) [address] [place] [address] #### 01442-9, HA1C #### [facility] ([id number]) [address] [place] [address], [address] [place] [address]TRIEEBDMBXURzq 29-10-6807Mzsrn gap [Moles/Vol]11 mmol/LNormal 5-15ProCedar Park Regional Medical CenterComment on above:Performed By: #### ELEC, 3094-0, ENERGY RISK MANAGEMENT ANALYST, 20000-3 #### [facility] ([id number]) [address] [place] [address] #### 54516-9, HA1C #### [facility] ([id number]) [address] [place] [address], [address] [place], [place] [address]Ckozmbob [Moles/Vol]101 mmol/ZDjgvdi56-001MoeAbuemxCedar Park Regional Medical CenterComment on above:Performed By: #### ELEC, 3094-0, ENERGY RISK MANAGEMENT ANALYST, 21521-6 #### [facility] ([id number]) [address] [place] [address] #### 60034-1, HA1C #### [facility] ([id number]) [address] [place] [address], [address] [place], [place] [address]OF0 [Moles/Vol]18 mmol/DNsv28-27CvwIlnxyiSumma Health Akron Campus Comment on above:Performed By: #### ELEC, 3094-0, ENERGY RISK MANAGEMENT ANALYST, 55077-8 #### [facility] ([id number]) [address] [place] [address] #### 37124-5, HA1C #### [facility] ([id number]) [address] [facility], [address] [place], [place] [address]Psoumrilj [Moles/Vol]4.4 mmol/LNormal3.5-5.0ProCedar Park Regional Medical CenterComment on above:Performed By: #### ELEC, 3094-0, ENERGY RISK MANAGEMENT ANALYST, 69121-3 #### [facility] ([id number]) [address] [place] [address] #### 93324-7, HA1C #### [facility] ([id number]) [address] [facility], [address] [place], [place] [address]Uprqyv [Moles/Vol]130 mmol/WIam108-820GzgXwbkynAvita Health System Ontario Hospital Comment on above:Performed By: #### ELEC, 309-0, ENERGY RISK MANAGEMENT ANALYST, 76176-1 #### [facility] ([id number]) [address] [place] [address] #### 44987-4, HA1C #### [facility] ([id number]) [address], [address] [place], [place] [address]FIU A1C (GLYCO-HGB)on 16-78-4808Dbgbgvq [Mass/Vol]260 mg/dL NormalProCedar Park Regional Medical CenterComment on above:Performed By: #### BMP, CBCA, 1987-, 88334-4 #### [facility] ([id number]) [address] [place] [address] #### 02940-6 #### [facility] ([id number]) [address] [place] [address], [address] [place], [place] [address]SbJ4i (Bld) [Mass fraction]10.7 %High4.4-5.6Av[facility] Health [facility] Ontario HospitalComment on above:Result Comment: NOTE ADA Guidelines Result HgbA1c Normal : less than 5.7 % Prediabetes : 5.7 % to 6.4 % Diabetes : > 6.4 % Use with caution in patients with abnormal hemoglobin variants as the half-life of red blood cells and in vivo glycation rates are affected.Performed By: #### MATTY, CBCA, 1987-08, 01374-2 #### [facility] ([id number]) [address] [place] [address] #### 17962-5 #### [facility] ([id number]) [address] [place] [address], [address] [place], [place] [address]Iuckm 1996 panelon 37-26-2481Qtkgvxjucjb [Mass/Vol]205 mg/dLHigh 150-200ProCedar Park Regional Medical CenterComascension borgess allegan hospital on above:Performed By: #### PHIL, 3094- 0, ENERGY RISK MANAGEMENT ANALYST, 80572-6 #### [facility] ([id number]) [address] [place] [address] #### 55977-6, HA1C #### [facility] ([id number]) [address] [place] [address], [address] [place], [place] [address]Lwigltllmui in HDL [Mass/Vol]35 mg/dLLow>39ProCedar Park Regional Medical CenterComascension borgess allegan hospital on above:Result Comment: HDL <40 mg/dL - High Risk HDL > or = 40mg/dL- Desirable HDL >60 mg/dL - Negative Risk Performed By: #### PHIL, 3094-0, ENERGY RISK MANAGEMENT ANALYST, 80361-5 #### [facility] ([id number]) [address] [place] [address] #### 34866-4, HA1C #### [facility] ([id number]) [address], [address] [place], [place] [address]Wrvzapeqvmz in LDL [Mass/Vol]120 mg/dLNormal<130ProCedar Park Regional Medical CenterComment on above:Result Comment: LDL <100 mg/dL - Desirable LDL >160 mg/dL - High Risk Performed By: #### ELEC, 3094-0, ENERGY RISK MANAGEMENT ANALYST, 87979-0 #### [facility] ([id number]) [address] [place] [address] #### 50739-7, HA1C #### [facility] ([id number]) [address], [address] [place], [place] [address]Xrlcnsaayxb in VLDL [Mass/Vol]50 mg/dLHigh0-30ProCedar Park Regional Medical CenterComment on above:Performed By: #### ELEC, 3094-0, ENERGY RISK MANAGEMENT ANALYST, 69082-3 #### [facility] ([id number]) [address] [place] [address] #### 54334-9, HA1C #### [facility] ([id number]) [address], [address] [place], [place] [address]VMGESKPWLUP:HDL5.9High1.0-5.0ProCedar Park Regional Medical CenterComment on above:Performed By: #### ELEC, 3094-0, ENERGY RISK MANAGEMENT ANALYST, 82100-5 #### [facility] ([id number]) [address] [place] [address] #### 64422-2, HA1C #### [facility] ([id number]) [address], [address] [place], [place] [address]Qjutxkzjlbyn [Mass/Vol]248 mg/fWFkrk86-325PqpNttgqgCedar Park Regional Medical CenterComment on above:Performed By: #### PHIL, 3094-0, ENERGY RISK MANAGEMENT ANALYST, 36760-8 #### [facility] ([id number]) [address] [place] [address] #### 99815-4, HA1C #### [facility] ([id number]) [address], [address] [place], [place] [address]EGBHPIKPXPFX - ALBUMIN:CREATININE URINE RATIOon 05-06-2023 ALB/CREAT KDQSI2335.0 mg/g creatHigh0.0-30.0ProCedar Park Regional Medical CenterComment on above:Performed By: #### JAMES STARR, 1987-08, 83350-5 #### [facility] ([id number]) [address] [place] [address] #### 60693-2 #### [facility] ([id number]) [address] [facility], [address] [place], [place] [address]Svrswjx DL <= 20 mg/L (U) [Mass/Vol]195.2 mg/dLHigh0.0-1.9 [facility] HospitalComment on above:Performed By: #### JAMES STARR, 1987-08, 65597-1 #### [facility] ([id number]) [address] [place] [address] #### 66388-8 #### [facility] ([id number]) [address], [address] [place], [place] [address]ZWOBI CREAT71.06 mg/dLNormalProCedar Park Regional Medical CenterComment on above:Performed By: #### JAMES STARR, 1987-08, 61276-1 #### [facility] ([id number]) [address] [place] [address] #### 53611-0 #### [facility] ([id number]) [address] [place] [address], [address] [place], [place] [address]Rhgxmtsikjb peptide.B prohormone N-Terminal [Mass/Vol]on 20-33-5771JQ Pro BNPSee BelowNormalProMedica Broadway Community HospitalComment on above: Result Comment: NOTE TEST RESULT FLAG UNIT REF.RANGE PRO B Natr Peptide 314 H pg/mL <125 Test Performed By: [place] [address] Carpet Layer Helper: Tyler Valel III, M.D. CLIA #[id number] By: #### BMP, CBCA, 1987-, 17785-4 #### [facility] ([id number]) [address] [place] [address] #### 54550-2 #### [facility] ([id number]) [address] [place] [address], [address] [place], [place] [address]YYIYHQVUFJre 88-04-1695Bgpzqfhyz Ql (U)NegativeNormalNEG [facility] HospitalComment on above:Performed By: #### UA #### [facility] ([id number]) [address] [place] [address]XGDUY/HGBTraceAbnormalNEGProOhiohealth Southeastern Medical Centerca Broadway Community HospitalComascension borg[facility] hospital on above:Performed By: #### UA #### [facility] ([id number]) [address] [place] [address]Ocguy (U)YELLOWNormalYELLOWProMedica Sapelo Island HospitalComment on above:Performed By: #### UA #### [facility] ([id number]) [address] [place] [address], [place] [address]Iscxigk Ql (U)>1000AbnormalNEGProCedar Park Regional Medical CenterComment on above:Performed By: #### UA #### [facility] ([id number]) [address] [place] [address], [place] [address]Kjqfnhb Ql (U)NegativeNormalNEGAvita Health System Ontario Hospital Comment on above:Performed By: #### UA #### [facility] ([id number]) [address] [place] [address], [place] [address]Dhjekivyh esterase Test strip Ql (U)NegativeTogus VA Medical CenterComment on above:Result Comment: HIGH CONCENTRATIONS OF GLUCOSE MAY DECREASE THE REACTIVITY OF THE DIPSTICK LEUKOCYTE TEST PAD.Performed By: #### UA #### [facility] ([id number]) [address] [place] [address], [place] [address]AEVVZXCNMWNWIPxrxsjjwBOPIXorRibxxc [facility] HospitalComment on above:Performed By: #### UA #### [facility] ([id number]) [address] [place] [address], [place] [address]Ramzgey Ql (U)PositiveThe Surgical Hospital at Southwoods Comment on above:Performed By: #### UA #### [facility] ([id number]) [address] [place] [address], [place] [address]zW (U)6.0 [pH]Normal5.0-8.5PSumma Health Akron CampusComment on above:Performed By: #### UA #### [facility] ([id number]) [address] [place] [address], [place] [address]Ptbkots Ql (U)>300AbnormalNEGProCedar Park Regional Medical CenterComment on above:Performed By: #### UA #### [facility] ([id number]) [address] [place] [address]T.B.CELLS5 /hpfNormal0-5PSumma Health Akron CampusComment on above:Performed By: #### UA #### [facility] ([id number]) [address] [place] [address]79[address]Ykqjiuxe gravity (U) [Rel density]1.734Wrnowu1.003-1.035 [facility] HospitalComment on above:Performed By: #### UA #### [facility] ([id number]) [address] [place] [address] 00077VXFNOJSZ EPITHELIUM4 /hpfNormal0-[address] [place] [address] Comment on above:Performed By: #### UA #### [facility] ([id number]) [address] [place] [address] 79947AYKQYSYQPVPIZFsgrfkubPKBHCLbyOimfws [facility] HospitalComment on above:Performed By: #### UA #### [facility] ([id number]) [address] [place] [address]Ocwnycrrwaln Qn (U)0.2 {Chaya'U}/dLNormal<1.1PSumma Health Akron CampusComment on above:Performed By: #### UA #### [facility] ([id number]) [address] [place] [address]U.B.CELLS>959Ekxf9-0ZzcWglxbuSumma Health Akron CampusComment on above: Performed By: #### UA #### [facility] ([id number]) [address] [place] [address]GRSRR CULTUREon 93-76-6088Bnfdghka identified Cx Nom (U) SPECIMEN NOTES URINE RECEIVED WITHOUT PRESERVATIVE CULTURE RESULTS MULTIPLE SPECIES PRESENT. PROBABLE COLLECTION CONTAMINATION. SUGGEST REPEAT SPECIMEN. URINE RECEIVED WITHOUT PRESERVATIVE-DELAYS IN TRANSPORT MAY AFFECT RESULTS.INTERPRET WITH CAUTION AND CLINICAL CORRELATION IS RECOMMENDED.Normal [facility] HospitalComment on above:Performed By: #### JAMES STARR, 1987-08, 05185-0 #### [facility] ([id number]) [address] [place] [address] #### 15473-2 #### [facility] ([id number]) [address], [address] [place], [place] [address]YCWRN METABOLIC PANLon 99-82-4034Puigu gap [Moles/Vol]6 mmol/L Normal5-15ProCedar Park Regional Medical CenterComment on above:Performed By: #### JAMES STARR, 1987-08, 14441-4 #### [facility] ([id number]) [address] [place] [address] #### 94572-1 #### [facility] ([id number]) [address], [address] [place], [place] [address]Qkdsrjl [Mass/Vol]8.6 mg/dLNormal8.5-10.5Pro[facility] HospitalComment on above:Performed By: #### JAMES STARR, 1987-08, 64786-1 #### [facility] ([id number]) [address] [place] [address] 27285 #### 71764-4 #### [facility] ([id number]) [address], [address] [place], [place] [address]Rowevnye [Moles/Vol]101 mmol/UAmnzpu53-612RfaNrdfojCedar Park Regional Medical CenterComment on above:Performed By: #### JAMES STARR, 1987-08, 75703-4 #### [facility] ([id number]) [address] [place] [address]71 #### 25316-1 #### [facility] ([id number]) [address], [address] [place], [place] [address]YS1 [Moles/Vol]19 mmol/NUyk56-80GckUsgmpvSumma Health Akron Campus Comment on above:Performed By: #### JAMES STARR, 1987-08, 92872-2 #### [facility] ([id number]) [address] [place] [address]28 #### 36890-5 #### [facility] ([id number]) [address] [facility], [address] [place], [place] [address]Ohosdpmiet [Mass/Vol]2.57 mg/dLHigh0.70-1.20[facility] HospitalComment on above:Result Comment: METHOD TRACEABLE TO IDMS STANDARD Performed By: #### JAMES STARR, 1987-08, #### [facility] ([id number]) [address] [place] [address] #### 65167-9 #### [facility] ([id number]) [address] [facility], [address] [place], [place] [address]CVS/1.73 sq M.predicted among non-blacks MDRD (S/P/Bld) [Vol rate/Area]27 mL/min/{1.73_m2}Low>59ProCedar Park Regional Medical CenterComment on above: Result Comment: Reported eGFR is based on the CKD-EPI 2020 equation that does not use a race coefficient.Performed By: #### JAMES STARR, 1987-08, 05149-6 #### [facility] ([id number]) [address] [place] [address]31 #### 73783-6 #### [facility] ([id number]) [address] [facility], [address] [place], [place] [address]Jngpbyg [Mass/Vol]377 mg/eWPnji90-97HwtVszuonAvita Health System [facility] Hospital Comment on above:Performed By: #### JAMES STARR, 1987-08, 87298-9 #### [facility] ([id number]) [address] [place] [address] 20874 #### 81791-1 #### [facility] ([id number]) [address] [place] [address], [address] [place], [place] [address]Kjexpqovm [Moles/Vol]4.2 mmol/LNormal3.5-5.0ProCedar Park Regional Medical CenterComment on above:Performed By: #### JAMES STARR, 1987-08, 78591-7 #### [facility] ([id number]) [address] [place] [address]157 #### 66600-1 #### [facility] ([id number]) [address] [place] [address], [address] [place] [address]Taqyst [Moles/Vol]126 mmol/JFwd230-363PhgVrnzwjCedar Park Regional Medical Center Comment on above:Performed By: #### JAMES STARR, 1987-08, 49333-4 #### [facility] ([id number]) [address] [place] [address] 84313 #### 72671-3 #### [facility] ([id number]) [address] [place] [address], [address] [place] [address]Vhqn nitrogen [Mass/Vol]30 mg/dLHigh5-27ProCedar Park Regional Medical CenterComment on above:Performed By: #### JAMES STARR, 1987-08, 07231-2 #### [facility] ([id number]) [address] [place] [address] 22401 #### 24691-0 #### [facility] ([id number]) [address] [place] [address], [address] [place], [place] [address]RIV AND AUTO DIFFon 09-97-2619IKKAULRS BASOPHIL0.1 X10E9/LNormal 0.0-0.2Pro[facility] Community HospitalComment on above:Performed By: #### JAMES STARR, 1987-08, 72473-8 #### [facility] ([id number]) [address] [place] [address] 00006 #### 22078-0 #### [facility] ([id number]) [address] [facility], [address] [place], [place] [address]HWTFVLHZ NEUTROPHIL8.8 X10E9/LHigh1.5-6.6ProCedar Park Regional Medical CenterComment on above:Performed By: #### MATTY CBCA, 1987-08, 32336-2 #### [facility] ([id number]) [address] [place] [address] 65970 #### 56395-5 #### [facility] ([id number]) [address] [facility], [address] [place], [place] [address]Jsoticiik/100 WBC (Bld)0.5 %[facility] Comment on above:Performed By: #### MATTY CBCJarrett, 1987-08, 27157-2 #### [facility] ([id number]) [address] [place] [address] 69547 #### 95934-0 #### [facility] ([id number]) [address] [facility], [address] [place], [place] [address]Lnuhytjzmxg (Bld) [#/Vol]0.3 10*3/uLNormal0.0-0.4ProCedar Park Regional Medical CenterComment on above:Performed By: #### MATTY CBCA, 1987-08, 61714-5 #### [facility] ([id number]) [address] [place] [address] 50440 #### 72004-5 #### [facility] ([id number]) [address] [facility], [address] [place], [place] [address]Jckxsfokcss/100 WBC (Bld)2.6 %[facility] Comment on above:Performed By: #### JAMES STARR, 1987-08, 71573-0 #### [facility] ([id number]) [address] [place] [address] 30743 #### 68014-5 #### [facility] ([id number]) [address], [address] [place], [place] [address]Fbovydvtrqu distribution width (RBC) [Ratio]15.5 %High11.5-15.0 ProMCalifornia Hospital Medical CenterComment on above:Performed By: #### JAMES STARR, 1987-08, 43144-9 #### [facility] ([id number]) [address] [place] [address] #### 24381-1 #### [facility] ([id number]) [address], [address] [place], [place] [address]Hhutyciikv (Bld) [Volume fraction]36.8 %Drx80-56RafCtlhbgCedar Park Regional Medical CenterComment on above:Performed By: #### JAMES STARR, 1987-08, 36933-3 #### [facility] ([id number]) [address] [place] [address] #### 89102-3 #### [facility] ([id number]) [address], [address] [place], [place] [address]Fovgeodmuv (Bld) [Mass/Vol]12.0 g/dLLow13.0-17.0[facility] HospitalComment on above:Performed By: #### JAMES STARR, 1987-08, 44243-7 #### [facility] ([id number]) [address] [place] [address] #### 65459-8 #### [facility] ([id number]) [address], [address] [place], [place] [address]Anezwvipiem (Bld) [#/Vol]1.9 10*3/uLNormal1.0-3.5ProMedCommunity Hospital of San BernardinoComment on above:Performed By: #### MATTY, CBCA, 1987-08, 76551-8 #### [facility] ([id number]) [address] [place] [address] 85142 #### 02317-2 #### [facility] ([id number]) [address], [address] [place], [place] [address]Cskkcvujrwo/100 WBC (Bld)15.1 %NormalAvita Health System [facility] Hospital Comment on above:Performed By: #### MATTY CBCA, 1987-08, 12945-6 #### [facility] ([id number]) [address] [place] [address]44 #### 74938-3 #### [facility] ([id number]) [address], [address] [place], [place] [address]MRQ (RBC) [Entitic mass]28.2 dpLccuqz47-31TlgGptsvnAvita Health System Ontario HospitalComment on above:Performed By: #### MATTY CBCA, 1987-08, 63804-2 #### [facility] ([id number]) [address] [place] [address] #### 62495-8 #### [facility] ([id number]) [address], [address] [place], [place] [address]YZQS (RBC) [Mass/Vol]32.7 g/xWSedfgs97-76OzqNqymwkAvita Health System Ontario HospitalComment on above:Performed By: #### MATTY CBCA, 1987-08, 54213-3 #### [facility] ([id number]) [address] [place] [address] #### 96385-1 #### [facility] ([id number]) [address], [address] [place], [place] [address]IBE (RBC) [Entitic vol]86 aLYwurnt25-029JozJbuakr Fremont HospitalComment on above:Performed By: #### MATTY CBCJarrett, 1987-08, 95732-7 #### [facility] ([id number]) [address] [place] [address]36 #### 83834-8 #### [facility] ([id number]) [address], [address] [place], [place] [address]Tqcstymnp (Bld) [#/Vol]1.4 10*3/uLHigh0-0.9ProCedar Park Regional Medical CenterComment on above:Performed By: #### MATTY CBCJarrett, 1987-08, 19179-4 #### [facility] ([id number]) [address] [place] [address] #### 84250-2 #### [facility] ([id number]) [address], [address] [place], [place] [address]Gjknvngln/100 WBC (Bld)11.2 %NormalAvita Health System Ontario Hospital Comment on above:Performed By: #### MATTY CBCJarrett, 1987-08, #### [facility] ([id number]) [address] [place] [address] #### 24958-3 #### [facility] ([id number]) [address], [address] [place], [place] [address]Wikhhiuutmi/100 WBC (Bld)70.6 %NormalAvita Health System Ontario Hospital Comment on above:Performed By: #### MATTY CBCJarrett, 1987-08, 40493-0 #### [facility] ([id number]) [address] [place] [address] #### 46709-8 #### [facility] ([id number]) [address], [address] [place], [place] [address]Frhrwhnd mean volume (Bld) [Entitic vol]7.6 fLNormal7-12 ProMCalifornia Hospital Medical CenterComment on above:Performed By: #### JAMES STARR, 1987-08, #### [facility] ([id number]) [address] [place] [address] #### 03708-1 #### [facility] ([id number]) [address], [address] [place], [place] [address]Qbsxdqban (Bld) [#/Vol]325 10*3/oMZcbajt199-682RcoZmzzyc Fremont HospitalComment on above:Performed By: #### JAMES STARR, 1987-08, #### [facility] ([id number]) [address] [place] [address] 17825 #### 73280-2 #### [facility] ([id number]) [address], [address] [place], [place] [address]DVK COUNT4.27 X10E12/LNormal4.10-5.70[facility] Comment on above:Performed By: #### JAMES STARR, 1987-08, #### [facility] ([id number]) [address] [place] [address] 355[address] #### 94410-1 #### [facility] ([id number]) [address], [address] [place], [place] [address]EQM (Bld) [#/Vol]12.5 10*3/uLHigh4.0-11.0ProCedar Park Regional Medical CenterComment on above:Performed By: #### JAMES STARR, 1987-08, 54988-9 #### [facility] ([id number]) [address] [place] [address] #### 11607-0 #### [facility] ([id number]) [address], [address] [place], [place] [address]MSL [Mass/Vol]on 04-19-2023 REACTIVE PROTEIN7.8 mg/dLHigh 0.000-0.744ProMedica Broadway Community HospitalComment on above:Performed By: #### JAMES STARR, 1987-08, 04533-7 #### [facility] ([id number]) [address] [place] [address] #### 42307-9 #### [facility] ([id number]) [address] [facility], [address] [place], [place] [address]JXB Photometric method (Bld) [Velocity]on 09-30-5992HPK, ERYTHROCYTE SEDIMENTATION FQIL296 mm/hHigh0-20ProCedar Park Regional Medical CenterComment on above:Performed By: #### JAMES STARR, 1987-08, 04684-9 #### [facility] ([id number]) [address] [place] [address] #### 25670-6 #### [facility] ([id number]) [address] [facility], [address] [place], [place] [address]Ilcgcnfpqvn peptide.B prohormone N-Terminal [Mass/Vol]on 90-41-6177RC Pro BNPSee BelowNormalProCedar Park Regional Medical CenterComment on above: Result Comment: NOTE TEST RESULT FLAG UNIT REF.RANGE PRO B Natr Peptide 587 H pg/mL <125 Test Performed By: [facility] [address] [place] [address] Carpet Layer Helper: Charlotte Hart III #[id number] By: #### BMP, CBCA, 1988-5, 37881-0 #### [facility] ([id number]) [address] [place] [address], [place] [address] #### 19350-3 #### [facility] ([id number]) [address] [place] [address], [address] [place], [place] [address]Phtch Metabolic Profon 91-08-9844Lnahg gap [Moles/Vol]11 mmol/L Normal9-17Park[facility] Health Bryan HospitalComment on above:Performed By: #### SED, CRP, BMP, CDP #### [address] [place], [place] [address] Raise Drill Operator: LENA Mccann/CRE Airqe44Lgjicx0-87Zikrd [facility] Comment on above:Performed By: #### SED, CRP, BMP, CDP #### [address] [place] [address] Raise Drill Operator: SHANI Mccannalcium [Mass/Vol]9.4 mg/dLNormal8.6-10.4Park[facility] Health Bryan HospitalComment on above:Performed By: #### SED, CRP, BMP, CDP #### [address] [place] [address] Raise Drill Operator: SHANI Mccannhloride [Moles/Vol]98 mmol/SRpaqgr78-767WzxzrParkview Health Bryan HospitalComment on above:Performed By: #### SED, CRP, BMP, CDP #### [facility] [address] [place] [address] [place] [address] Raise Drill Operator: Jameson Aaron MDCO2 [Moles/Vol]18 mmol/KNuq80-79TxiwbParkview Health Bryan HospitalComment on above:Performed By: #### SED, CRP, BMP, CDP #### [address] [place], [place] [address] Raise Drill Operator: SHANI Mccannreatinine [Mass/Vol]2.7 mg/dLHigh0.7-1.2Mer[facility] Opal HospitalComment on above:Performed By: #### EMIGDIO CRP, BMP, CDP #### [address] [place], [place] [address] Raise Drill Operator: Jameson Aaron MDGFR/1.73 sq M.predicted among non-blacks MDRD (S/P/Bld) [Vol rate/Area]26 mL/min/{1.73_m2}Low>60Mer[facility] Opal HospitalComment on above:Result Comment: These results are [...] By: #### EMIGDIO CRP, BMP, CDP #### [address] [place], [facility]83 Raise Drill Operator: Jameson Aaron MDGlucose [Mass/Vol]268 mg/hGRhbs57-35Eavbj Sharon HospitalComment on above:Performed By: #### EMIGDIO CRP, BMP, CDP #### [address] [place] [address] Raise Drill Operator: CANDACE Mccannotassium [Moles/Vol]5.2 mmol/LNormal3.7-5.3Mer[facility] Opal HospitalComment on above:Performed By: #### EMIGDIO CRP, BMP, CDP #### [address] [place], [place] 2[address] Raise Drill Operator: BUCK Mccannodium [Moles/Vol]127 mmol/AWkv165-516LpdspMt. Sinai HospitalComment on above:Performed By: #### SED CRP, BMP, CDP #### [address] [place] [address] Raise Drill Operator: Yola Mccann nitrogen [Mass/Vol]44 mg/dLHigh8-23[facility] HospitalComment on above:Performed By: #### SED, CRP, BMP, CDP #### [address] [place] [address] Raise Drill Operator: SHANI Mccann-Reactive Proteinon 11-34-1343YHC [Mass/Vol]131.1 mg/LHigh0.0-5.0MerDelaware County Hospital HospitalComment on above:Performed By: #### SED, CRP, BMP, CDP #### [address] [place] [address] Raise Drill Operator: SHANI MccannBC with Diffon 80-78-1041Rqt. Basophil0.06 k/uL Normal0.00-0.20MerDelaware County Hospital HospitalComment on above:Performed By: #### SED, CRP, BMP, CDP #### [address] [place], [place] [address] Raise Drill Operator: Megan Mccann.Imm.Granulocyte0.11 k/uLNormal0.00-0.30MerDelaware County Hospital HospitalComment on above:Performed By: #### SED, CRP, BMP, CDP #### [address] [place], [place] [address] Raise Drill Operator: Megan Mccann.Neutrophil (Seg)6.83 k/uLNormal1.50-8.10MerDelaware County Hospital HospitalComment on above:Performed By: #### SED, CRP, BMP, CDP #### [address] [place] [address] Raise Drill Operator: Jameson Aaron MDBasophils/100 WBC (Bld)1 %Normal0-2Mer[facility] Opal HospitalComment on above:Performed By: #### SED, CRP, BMP, CDP #### [address] [place] [address] Raise Drill Operator: Jameson Aaron MDEosinophils (Bld) [#/Vol]0.22 10*3/uLNormal 0.00-0.44MerDelaware County Hospital HospitalComment on above:Performed By: #### SED, CRP, BMP, CDP #### [address] [place] [address] Raise Drill Operator: Jameson Aaron MDEosinophils/100 WBC (Bld)2 %Normal1-4Mer[facility] Opal HospitalComment on above:Performed By: #### SED, CRP, BMP, CDP #### [address] [place] [address] Raise Drill Operator: Jameson Aaron MDErythrocyte distribution width (RBC) [Ratio]14.6 % High11.8-14.4MerDelaware County Hospital HospitalComment on above:Performed By: #### SED, CRP, BMP, CDP #### [address] [place] [address] Raise Drill Operator: Jameson Aaron MDHematocrit (Bld) [Volume fraction]41.9 %Normal 40.7-50.3Mer[facility] Opal HospitalComment on above:Performed By: #### SED, CRP, BMP, CDP #### [address] [place] [address] Raise Drill Operator: Jameson Aaron MDHemoglobin (Bld) [Mass/Vol]13.2 g/dLNormal 13.0-17.0[facility] HospitalComment on above:Performed By: #### SED, CRP, BMP, CDP #### [address] [place] [address] Raise Drill Operator: Jameson Aaron MDImmature granulocytes/100 WBC (Bld)1 %Cykk3Bhjdf Tiffin HospitalComment on above:Performed By: #### SED, CRP, BMP, CDP #### [address] [place] [address] Raise Drill Operator: Jameson Aaron MDLymphocytes (Bld) [#/Vol]1.83 10*3/uLNormal 1.10-3.70[facility] HospitalComment on above:Performed By: #### SED, CRP, BMP, CDP #### [address] [place] [address] Raise Drill Operator: Freddy Mccannhocytes/100 WBC (Bld)18 %Amk47-23MpizuParkview Health Bryan HospitalComment on above:Performed By: #### SED, CRP, BMP, CDP #### [address] [place] [address] Raise Drill Operator: JUAN MccannCH (RBC) [Entitic mass]28.2 uqEhnfru85.2-33.5 [facility] HospitalComment on above:Performed By: #### SED, CRP, BMP, CDP #### [address] [place] [address] Raise Drill Operator: JUAN MccannCHC (RBC) [Mass/Vol]31.5 g/hHWjpjjm46.4-34.8[facility] HospitalComment on above:Performed By: #### SED, CRP, BMP, CDP #### [address] [place] [address] Raise Drill Operator: JUAN MccannCV (RBC) [Entitic vol]89.5 uUIctyih31.6-102.9 [facility] HospitalComment on above:Performed By: #### SED, CRP, BMP, CDP #### [address] [place], [place] [address] Raise Drill Operator: JUAN Mccannonocytes (Bld) [#/Vol]1.42 10*3/uLHigh0.10-1.20 [facility] HospitalComment on above:Performed By: #### SED, CRP, BMP, CDP #### [address] [place], [place] [address] Raise Drill Operator: JUAN Mccannonocytes/100 WBC (Bld)14 %High3-12[facility] HospitalComment on above:Performed By: #### SED, CRP, BMP, CDP #### [address] [place], [place] [address] Raise Drill Operator: Jameson Aaron MDNeutrophil (Seg)64 %Kddmyi78-14MusqgParkview Health Bryan HospitalComment on above:Performed By: #### SED, CRP, BMP, CDP #### [address] [place], [facility]83 Raise Drill Operator: Jameson Aaron MDNRBC Automated0.0 per 100 WBCNormal0.0[facility] HospitalComment on above:Performed By: #### SED, CRP, BMP, CDP #### [address] [place] [address] Raise Drill Operator: Jayy Mccann mean volume (Bld) [Entitic vol]9.4 fL Normal8.1-13.5[facility] HospitalComascension borgess allegan hospital on above:Performed By: #### SED, CRP, BMP, CDP #### [address] [place], [facility]83 Raise Drill Operator: CANDACE Mccannlatelets (Bld) [#/Vol]266 10*3/vLQifhpc276-851 [facility] HospitalComascension borgess allegan hospital on above:Performed By: #### SED, CRP, BMP, CDP #### [address] [place] [address] Raise Drill Operator: Jameson Aaron MDRBC (Bld) [#/Vol]4.68 10*6/uLNormal4.21-5.77Mer Opal HospitalComment on above:Performed By: #### SED, CRP, BMP, CDP #### [facility] [address] [place], [place] [address] Raise Drill Operator: KATHRYN Mccann ([facility]) [#/Vol]10.5 10*3/uLNormal3.5-11.3Mer[facility] Sharon HospitalComment on above:Performed By: #### SED, CRP, BMP, CDP #### [facility] [address] [place], [facility]83 Raise Drill Operator: BUCK Mccannedimentation Rateon 87-31-6389Xhpcborqkdhpn Rate 114 mm/HrHigh0-20[facility] HospitalComment on above:Performed By: #### EMIGDIO, CRP, BMP, CDP #### [facility] [address] [place], [facility]83 Raise Drill Operator: AKIKO Mccann CULTUREon 90-44-8425Jpuuba (Mycology) CultureFinal Select Medical Specialty Hospital - TrumbullComment on above:Performed By: #### CXFUN ####[facility] T[address] [place], [place] [address]Dr. Eddie Petersonngus StainFinal [facility] Orthopedic CenterComment on above:Performed By: #### CXFUN ####[facility] L[address] [place], [place] [address]Dr. Eddie LernerResult 1CommentSouthview Medical CenterComment on above:Result Comment: ANNEMARIE/Calcofluor preparation: no fungus observed.Performed By: #### CXFUN ####[facility] Z[address]ql[address]his[address] [place], [place] [address]Dr. Eddie LernerResult 1Candida albicansAbCentervilleComment on above:Performed By: #### CXFUN ####[facility] Cikufk[address]km[address] [place], [place] [address]Dr. Eddie Lazaro OTHER on 97-70-2610WSUBNYM OTHERIsolate 1 Enterococcus faecalis Light growth of ORGANISM 1 Enterococcus faecalis ANTIBIOTIC M.I.C RX STATUS Beta-Lactamase Neg NEG F Benzylpenicillin 0.5 S F Ampicillin <=2 S F Gentamicin High Level (synergy) SYN-R R F Streptomycin High Level (synergy) SYN-S S F Quinupristin/Dalfopristin 4 R F Linezolid 1 S F Vancomycin 1 S FNormalThe [facility] City HospitalComment on above:Performed By: #### OTHCX ####[facility] [address] [place] [address]Dr. Eddie LernerACID FAST SMEAR AND CXon 71-72-0415Sfnx Fast SmearNegative NormalUk HealthcareComment on above:Performed By: #### AFB ####[facility] [address] [place] [address]DrMinal LernerAFB Specimen ProcessingTissue [facility]len[facility] HospitalComascension borg[facility] allegan hospital on above: Performed By: #### AFB ####[facility] D[address] [place], [place] [address]DrMinal LernerBNPon 04-05-9306Cokhhpldyol peptide B (Bld) [Mass/Vol]648.0 pg/mLNormal<=900.0The [facility] HospitalComment on above: Performed By: #### A1C #### [facility] [address] [place] [address] [address] Eddie Lazaro ANAEROBICon 44-83-1403TRNIIAB ANAEROBICCulture Observations: NO GROWTH OF ANAEROBES AT 72 HOURS.NormalThe [facility] HospitalComment on above: Performed By: #### ANACX ####[facility] D[address] [place], [place] [address]DrVaishali LernerGLYCOHEMOGLOBIN A1Con 17-68-1032JPK RECOMMENDATIONSEE [facility] Medical CenterComascension borgess allegan hospital on above:Result Comment: ADA RECOMMENDED LIMIT 4.0 - 6.0 ADA THERAPEUTIC TARGET < 7.0 ACTION SUGGESTED > 7.0Performed By: #### RENAL, LIPID, LIVER, TSH #### [facility] [address] [place] [address] [address] Eddie LernerGlucose [Mass/Vol]235 mg/dLSouthview Medical CenterComment on above:Performed By: #### RENAL, LIPID, LIVER, TSH #### [facility] [address] [place] [address] [address] Eddie LernerHbA1c (Bld) [Mass fraction]9.8 %Critically high4.5-6.2Uk HealthcareComment on above:Performed By: #### RENAL, LIPID, LIVER, TSH #### [facility] [address] [place] [address] [address] Eddie Newman STAINon 73-30-3004GDFTUPKTPM ORGANISMS OBSERVEDSouthview Medical CenterComment on above:Performed By: #### GSTAIN ####[facility] [address] [place] [address]Dr. Eddie Lerner DIPHTHEROIDSSouthview Medical CenterComment on above:Performed By: #### GSTAIN ####[facility] [address] [place] [address]Dr. Yilan ChangEPITHELIALSSouthview Medical CenterComment on above: Performed By: #### GSTAIN ####[facility] [address] [place], [place] [address]Dr. Yilan ChangFUNGAL ELEMENTSSouthview Medical CenterComment on above:Performed By: #### GSTAIN ####[facility] [address] [place] [address]Dr. Yilan ChangGRAM NEG BACILLIParkwood Hospital HospitalComment on above:Performed By: #### GSTAIN ####[facility] [address] [place] [address]Dr. Yilan ChangGRAM NEG DIPPLOCOCCIParkwood Hospital HospitalComment on above: Performed By: #### GSTAIN ####[facility] O[address]mz[address]me[address] [place], [place] [address]Dr. Yilan ChangGRAM POS BACILLIParkwood Hospital HospitalComment on above:Performed By: #### GSTAIN ####[facility] [address] [place] [address]Dr. Yiquincy ChangGRAM POSITIVE COCCSt. Elizabeth HospitalComment on above:Performed By: #### GSTAIN ####[facility] [address] [place] [address]Dr. Yiquincy ChangGRAM STAIN SOURCELt Foot Lima City HospitalComment on above:Performed By: #### GSTAIN ####[facility] [address] [place] [address]Dr. Yilan ChangGS_DIPWright-Patterson Medical Center Comment on above:Performed By: #### GSTAIN ####[facility] [address] [place] [address]Dr. Eddie ChangWBCRARENormalUk HealthcareComment on above:Performed By: #### GSTAIN ####[facility] [address] [place] [address]Dr. Eddie ChangLIPID PROFILE on 68-76-1371YFWY-HDL RATIO NORMSUniversity Hospitals Conneaut Medical CenterComment on above:Result Comment: 3.3 - 4.4 LOW RISK 4.4 - 7.1 AVERAGE RISK 7.1 - 11.0 MODERATE RISK >11.0 HIGH RISKPerformed By: #### A1C #### [facility] [address] [place] [address] [address] Eddie LernerCholesterol [Mass/Vol]137 mg/dLNormal<=200[facility] Comment on above:Performed By: #### A1C #### [facility] [address] [place] [address] [address] Eddie LernerCholesterol in HDL [Mass/Vol]54 mg/hWScvxib95-53KsrUk HealthcareComascension borgess allegan hospital on above:Performed By: #### A1C #### [facility] [address] [place] [address] [address] Eddie LernerCholesterol in LDL [Mass/Vol]63.2 mg/dLSouthview Medical CenterComascension borgess allegan hospital on above:Performed By: #### A1C #### [facility] [address] [place] [address] [address] Eddie LernerCholesterol.total/Cholesterol in HDL [Mass ratio]2.5 {ratio} NormalThe [facility] HospitalComment on above:Performed By: #### A1C #### [facility] [address] [place] [address] [address] Eddie Powell NORMAL> or = 60 mg/dl - LOW CARDIOVASCULAR RISK <40 mg/dl - HIGH CARDIOVASCULAR RISKSouthview Medical CenterComment on above:Performed By: #### A1C #### [facility] [address] [place] [address] [address] Eddie LernerLDL CALC NORMALSEE BELOWSouthview Medical CenterComment on above:Result Comment: <100 mg/dl OPTIMAL 100 - 129 mg/dl NEAR OR ABOVE OPTIMAL 130 - 159 mg/dl BORDERLINE HIGH 160 - 189 mg/dl HIGH >190 mg/dl VERY HIGH Performed By: #### A1C #### [facility] [address] [place] [address] [address] Eddie LernerTriglyceride [Mass/Vol]99 mg/dLNormal<=150The [facility] Comment on above:Performed By: #### A1C #### [facility] [address] [place] [address] [address] Eddie AkersLDL CALC19.8 mg/dLNoHenry County HospitalComascension borgess allegan hospital on above: Performed By: #### A1C #### [facility] [address] [place] [address] [address] Eddie Kirk PROFILEon 74-96-9542Qkmbgcw [Mass/Vol]2.8 g/dLCritically low3.4-5.0The [facility] HospitalComment on above:Performed By: #### A1C #### [facility] [address] [place] [address] [address] Eddie LernerAlbumin/Globulin [Mass ratio]0.6 {ratio}NormalThe [facility] HospitalComment on above:Performed By: #### A1C #### [facility] [address] [place] [address] [address] Eddie WoodP [Catalytic activity/Vol]87 U/EPbfxlb85-776Yzg Pauline HospitalComment on above:Performed By: #### A1C #### [facility] [address] [place] [address] [address] Eddie Pagan [Catalytic activity/Vol]49 U/UUuevzl76-64Wrw [facility] HospitalComment on above:Performed By: #### A1C #### [facility] [address] [place] [address] [address] Eddie Mills [Catalytic activity/Vol]36 U/NNmdikh49-35Dbn [facility] on above:Performed By: #### A1C #### [facility] [address] [place] [address] [address] Eddie WatsonI, CONJUGATED0.1 mg/dLNormal0.0-0.2[facility] Comment on above:Performed By: #### A1C #### [facility] [address] [place] [address] [address] Eddie Watsonirubin [Mass/Vol]0.4 mg/dLNormal0.2-1.0[facility] Comment on above:Performed By: #### A1C #### [facility] [address] [place] [address] [address] Eddie LernerGlobulin (S) [Mass/Vol]4.4 g/dLNormalThe [facility] on above:Performed By: #### A1C #### [facility] [address] [place] [address] [address] Eddie LernerProtein [Mass/Vol]7.2 g/dLNormal6.4-8.2[facility] Comment on above:Performed By: #### A1C #### [facility] [address] [place] [address] [address] Eddie LernerWILMINGTON [facility] GLUCOSEon 27-34-7159Qpyyexq [Mass/Vol]107 mg/dL Critically sugf13-994BxeOhioHealth Mansfield Hospital on above:Performed By: #### POCGLUC #### [facility] [address] [place] [address] [address] Eddie LernerGlucose [Mass/Vol]108 mg/dLCritically plgs30-658Wpy Pauline HospitalComment on above:Performed By: #### POCGLUC ####[facility] [address] [place] [address]Dr. Eddie LernerTSHon 54-82-1325TTK7.247 uIU/mLNormal0.358-3.740The [facility] on above: Performed By: #### A1C #### [facility] [address] [place] [address] [address] Eddie LernerCBC AUTO DIFFon 06-84-7250DJIC #0.0 103/ulNormal0.0-0.1The [facility] HospitalComment on above:Performed By: #### CBC ####[facility] Souxnbxpxz[address] [place], [place] [address]Dr.Eddie LernerBasophils/100 WBC (Bld)0.4 %Normal0.2-2.0The [facility] on above:Performed By: #### CBC ####[facility] [address]tcg[address] [place], [place] [address]Dr.Eddie ChangEO #0.2 103/ulNormal0.0-0.7The [facility] HospitalComascension borgess allegan hospital on above:Performed By: #### CBC ####[facility] Z[address] [place], [place] [address]Dr.Eddie ChangEosinophils/100 WBC (Bld)2.0 %Normal 0.9-7.0The [facility] on above:Performed By: #### CBC ####[facility] Er[address] [place], [place] [address]Dr.Eddie Lerner Erythrocyte distribution width (RBC) [Ratio]14.5 %Qtcsiu90.0-15.0The [facility] Campusment on above:Performed By: #### CBC ####[facility] U[address]zdhrgwn[address] [place], [place] [address]Dr.Eddie LernerHematocrit (Bld) [Volume fraction]40.5 %Critically low42.0-54.0The [facility] South Campusment on above:Performed By: #### CBC ####[facility] [address] [place] [address]Dr.Eddie LernerHemoglobin (Bld) [Mass/Vol]13.1 g/dL Critically low14.0-18.0The [facility] HospitalComment on above:Performed By: #### CBC ####[facility] Do[address]xt[address] [place], [place] [address]Dr. Eddie ChangIG #0.12 10e3/ulCritically high0.00-0.03The [facility] HospitalComment on above:Performed By: #### CBC ####[facility] [address]cc[address] [place], [place] [address]Dr.Eddie ChangIG %1.2 %Critically high0.0-0.5The [facility] HospitalComment on above:Performed By: #### CBC ####[facility] [address]vsbce[address] [place], [place] [address]Dr.Eddie LernerLYMPH #1.4 103/ulNormal1.2-3.8The [facility] HospitalComment on above:Performed By: #### CBC ####[facility] [address]afmmph[address] [place], [place] [address]Dr. Eddie LernerLymphocytes/100 WBC (Bld)13.6 %Critically low20.5-60.0The [facility] HospitalComment on above:Performed By: #### CBC ####[facility] [address]mbgjxmn[address] [place], [place] [address]Dr.Eddie LernerMANUAL DIFF REQ NONormalThe [facility] HospitalComment on above:Performed By: #### CBC ####[facility] [address] [place], [place] [address]Dr. Eddie LernerMCH (RBC) [Entitic mass]29.8 cvVgxetd73.9-34.0The [facility] Comment on above:Performed By: #### CBC ####[facility] [address]pe[address] [place], [place] [address]Dr.Eddie YannMCHC (RBC) [Mass/Vol]32.3 g/dL Tlphbl86.9-35.2The [facility] HospitalComment on above:Performed By: #### CBC ####[facility] [address] [place] [address]Dr. Eddie YannMCV (RBC) [Entitic vol]92.0 oFQsmtbf68.0-94.0The [facility] Comment on above:Performed By: #### CBC ####[facility] [address] [place] [address]Dr.Eddie LernerMONO #0.5 103/ulNormal0.3-0.8 The [facility] HospitalComment on above:Performed By: #### CBC ####[facility] [address]cfafbo[address] [place], [place] [address]Dr.Dainaquincy Lerner Monocytes/100 WBC (Bld)4.8 %Normal1.7-12.0The [facility] HospitalComment on above: Performed By: #### CBC ####[facility] Czgloxcgkc[address] [place], [place] [address]Dr.Eddie LernerNEUT #8.1 103/ulCritically high1.4-6.5 The [facility] HospitalComment on above:Performed By: #### CBC ####[facility] [address] [place] [address]Dr.Dainaquincy Lerner Neutrophils/100 WBC (Bld)78.0 %Critically high43.0-75.0[facility] Comment on above:Performed By: #### CBC ####[facility] Ohuckob[address] [place], [place] [address]Dr.Dainaquincy LernerPlatelet mean volume (Bld) [Entitic vol]8.6 fLCritically low9.5-13.5The [facility] HospitalComment on above: Performed By: #### CBC ####[facility] Fm[address] [place], [place] [address]Dr.Eddie LernerPLT240 103/phTdliqn955-093Ulw [facility] HospitalComment on above:Performed By: #### CBC ####[facility] Isq[address] [place], [place] [address]Dr.Eddie LernerRBC4.40 106/ul Critically low4.70-6.10The [facility] HospitalComment on above:Performed By: #### CBC ####[facility] [address] [address]Dr. Eddie LernerWBC10.3 103/ulNormal4.0-11.0The [facility] HospitalComment on above: Performed By: #### CBC ####[facility] [address] [address]Dr.Yilan LernerCRPon 86-07-7526MAV [Mass/Vol]mg/LNormal <=1.0The [facility] HospitalComment on above:Performed By: #### A1C #### [facility] [address] [address] [address] Eddie LernerPROF CHEM 8 (BAS METB)on 54-19-0613Ymzem gap [Moles/Vol]14.4 mmol/LNormalThe [facility] HospitalComment on above:Performed By: #### A1C #### [facility] [address] [address] [address] Eddie LernerCalcium [Mass/Vol]9.2 mg/dLNormal8.5-10.1[facility] Comment on above:Performed By: #### A1C #### [facility] [address] [address] [address] Eddie LernerChloride [Moles/Vol]101 mmol/EGdeccz15-716Vvm [facility] Comment on above:Performed By: #### A1C #### [facility] [address] [address] [address] Eddie LernerCO2 [Moles/Vol]25.2 mmol/FDfdziw80.0-32.0[facility] Comment on above:Performed By: #### A1C #### [facility] [address] [address] [address] Eddie LernerCreatinine [Mass/Vol]3.07 mg/dLCritically high0.70-1.30The [facility] HospitalComment on above:Performed By: #### A1C #### [facility] [address] [address] [address] Morgan ChangEGFR-AF XFQAFZSW60 mL/min/1.72w6Blfdetfvie low>=60The [facility] HospitalComment on above:Performed By: #### A1C #### [facility] [address] [address] [address] Eddie OzunaGFR-NON AF JUFXIVCF63 mL/min/1.99z8Zboqnpfrig low>=60The [facility] HospitalComment on above:Performed By: #### A1C #### [facility] [address] [address] [address] Eddie LernerGlucose [Mass/Vol]415 mg/dLCritically sowf63-839Qox [facility] HospitalComment on above:Performed By: #### A1C #### [facility] [address] [address] [address] Eddie LernerPotassium [Moles/Vol]5.6 mmol/LCritically high3.5-5.1The [facility] HospitalComment on above:Performed By: #### A1C #### [facility] [address] [place] [address] Dr. Eddie LernerSodium [Moles/Vol]135 mmol/LCritically clp518-212Upk [facility] HospitalComment on above:Performed By: #### A1C #### [facility] [address] [place] [address] Dr. Eddie LernerUrea nitrogen [Mass/Vol]34.0 mg/dLCritically high7.0-18.0The [facility] HospitalComment on above:Performed By: #### A1C #### [facility] [address] [place] [address] Dr. Eddie Llanes nitrogen/Creatinine [Mass ratio]11.1 mg/mgNormalThe [facility] HospitalComment on above:Performed By: #### A1C #### [facility] [address] [address] [address] Eddie Ivan RATE WESTERGRENon 48-60-0138NAM RATE59 mm/hrCritically high <=20The [facility] HospitalComment on above:Performed By: #### SEDR ####[facility] [address] [address]Dr. Eddie Graff 47-33-7226Erspgoicvkn peptide B (Bld) [Mass/Vol]1342.0 pg/mLCritically high <=900.0The [facility] HospitalComment on above:Performed By: #### BNP ####[facility] [address] [address]Dr.Yilan Montenegro AUTO DIFFon 50-33-1914IODH #0.1 103/ulNormal0.0-0.1The [facility] HospitalComment on above:Performed By: #### A1C #### [facility] [address] [address] [address] Eddie LernerBasophils/100 WBC (Bld)0.6 %Normal0.2-2.0[facility] Comment on above:Performed By: #### A1C #### [facility] [address] [place] [address] Dr. Eddie Wheeler #0.2 103/ulNormal0.0-0.7The [facility] HospitalComment on above: Performed By: #### A1C #### [facility] [address] [address] [address] Eddie Ozunaosinophils/100 WBC (Bld)1.8 %Normal0.9-7.0[facility] Comment on above:Performed By: #### A1C #### [facility] [address] [address] [address] Eddie Ozunarythrocyte distribution width (RBC) [Ratio]15.2 %Critically high 11.0-15.0The [facility] HospitalComment on above:Performed By: #### A1C #### [facility] [address] [place] [address] Dr. Eddie LernerHematocrit (Bld) [Volume fraction]39.0 %Critically low42.0-54.0 The [facility] HospitalComment on above:Performed By: #### A1C #### [facility] [address] [place] [address] Dr. Eddie LernerHemoglobin (Bld) [Mass/Vol]12.4 g/dLCritically low14.0-18.0The [facility] HospitalComment on above:Performed By: #### A1C #### [facility] [address] [address] [address] Eddie Lowe #0.21 10e3/ulCritically high0.00-0.03The [facility] Comment on above:Performed By: #### A1C #### [facility] [address] [address] [address] Eddie Lowe %1.6 %Critically high0.0-0.5The [facility] HospitalComment on above:Performed By: #### A1C #### [facility] [address] [place] [address] Dr. Eddie Polanco #1.9 103/ulNormal1.2-3.8The [facility] HospitalComment on above:Performed By: #### A1C #### [facility] [address] [place] [address] Dr. Eddie Moranhocytes/100 WBC (Bld)13.8 %Critically low20.5-60.0The [facility] HospitalComment on above:Performed By: #### A1C #### [facility] [address] [place] [address] Dr. Eddie SullivanUAL DIFF REQNONormalThe [facility] HospitalComment on above: Performed By: #### A1C #### [facility] [address] [address] [address] Eddie Irving (RBC) [Entitic mass]27.8 okWshujs84.9-34.0The [facility] HospitalComment on above:Performed By: #### A1C #### [facility] [address] [address] [address] Eddie Irving (RBC) [Mass/Vol]31.8 g/kEYvjxbh28.9-35.2The [facility] HospitalComment on above:Performed By: #### A1C #### [facility] [address] [place] [address] Dr. Eddie Irving (RBC) [Entitic vol]87.4 oJNsgfgr19.0-94.0The [facility] HospitalComment on above:Performed By: #### A1C #### [facility] [address] [place] [address] Dr. Eddie Morton #0.8 103/ulNormal0.3-0.8The [facility] HospitalComment on above:Performed By: #### A1C #### [facility] [address] [place] [address] Dr. Eddie Williamsonocytes/100 WBC (Bld)5.9 %Normal1.7-12.0[facility] Comment on above:Performed By: #### A1C #### [facility] [address] [place] [address] Dr. Eddie Warner #10.3 103/ulCritically high1.4-6.5[facility] Comment on above:Performed By: #### A1C #### [facility] [address] [place] [address] Dr. Eddie Menjivarutrophils/100 WBC (Bld)76.3 %Critically high43.0-75.0The [facility] HospitalComment on above:Performed By: #### A1C #### [facility] [address] [place] [address] Dr. Eddie Perez mean volume (Bld) [Entitic vol]10.2 fLNormal9.5-13.5The [facility] HospitalComment on above:Performed By: #### A1C #### [facility] [address] [place] [address] Dr. Eddie LernerPLT288 103/zlLzrlsj033-080Fde [facility] HospitalComment on above: Performed By: #### A1C #### [facility] [address] [place] [address] Dr. Eddie LernerRBC4.46 106/ulCritically low4.70-6.10The [facility] HospitalComment on above:Performed By: #### A1C #### [facility] [address] [place] [address] Dr. Eddie LernerWBC13.5 103/ulCritically high4.0-11.0[facility] on above:Performed By: #### A1C #### [facility] [address] [address] [address] Eddie LernerGLYCOHEMOGLOBIN A1Con 71-77-1218TCI RECOMMENDATIONSEE BELOWNoUniversity Hospitals TriPoint Medical CenterComment on above:Result Comment: ADA RECOMMENDED LIMIT 4.0 - 6.0 ADA THERAPEUTIC TARGET < 7.0 ACTION SUGGESTED > 7.0Performed By: #### A1C #### [facility] [address] [place] [address] Dr. Eddie LernerGlucose [Mass/Vol]283 mg/dLNoHenry County HospitalComment on above:Performed By: #### A1C #### [facility] [address] [place] [address] Dr. Eddie LernerHbA1c (Bld) [Mass fraction]11.5 %Critically high4.5-6.2The [facility] HospitalComment on above:Performed By: #### A1C #### [facility] [address] [place] [address] Dr. Eddie LernerLIPID PROFILEon 16-87-4253KCBE-HDL RATIO NORMSEE [facility] Medical CenterComment on above:Result Comment: 3.3 - 4.4 LOW RISK 4.4 - 7.1 AVERAGE RISK 7.1 - 11.0 MODERATE RISK >11.0 HIGH RISKPerformed By: #### RENAL, LIPID, LIVER, TSH #### [facility] [address] [place] [address] Dr. Eddie LernerCholesterol [Mass/Vol]152 mg/dLNormal<=200The [facility] Comment on above:Performed By: #### RENAL, LIPID, LIVER, TSH #### [facility] [address] [place] [address] Dr. Eddie LernerCholesterol in HDL [Mass/Vol]51 mg/mAGjdoss94-15Rjz [facility] HospitalComment on above:Performed By: #### RENAL, LIPID, LIVER, TSH #### [facility] [address] [place] [address] Dr. Eddie Hernandezesterol in LDL [Mass/Vol]61.0 mg/dLOhioHealth Grant Medical Centerment on above:Performed By: #### RENAL, LIPID, LIVER, TSH #### [facility] [address] [place] [address] Dr. Eddie Hazel.total/Cholesterol in HDL [Mass ratio]3.0 {ratio} NormalThe [facility] HospitalComascension borgess allegan hospital on above:Performed By: #### RENAL, LIPID, LIVER, TSH #### [facility] [address] [place] [address] Dr. Eddie Powell NORMAL> or = 60 mg/dl - LOW CARDIOVASCULAR RISK <40 mg/dl - HIGH CARDIOVASCULAR RISKSouthview Medical CenterComment on above:Performed By: #### RENAL, LIPID, LIVER, TSH #### [facility] [address] [place] [address] Dr. Eddie Zheng CALC NORMALSEE BELOWSouthview Medical CenterComment on above:Result Comment: <100 mg/dl OPTIMAL 100 - 129 mg/dl NEAR OR ABOVE OPTIMAL 130 - 159 mg/dl BORDERLINE HIGH 160 - 189 mg/dl HIGH >190 mg/dl VERY HIGH Performed By: #### RENAL, LIPID, LIVER, TSH #### [facility] [address] [place] [address] Dr. Eddie LernerTriglyceride [Mass/Vol]200 mg/dLCritically high<=150The [facility] on above:Performed By: #### RENAL, LIPID, LIVER, TSH #### [facility] [address] [place] [address] Dr. Eddie AkersLDL CALC40.0 mg/dLSouthview Medical CenterComascension borgess allegan hospital on above: Performed By: #### RENAL, LIPID, LIVER, TSH #### [facility] [address] [place] [address] Dr. Eddie Kirk PROFILEon 01-70-3673Kstttpa [Mass/Vol]2.6 g/dLCritically low3.4-5.0The [facility] HospitalComascension [facility]org[facility]gan hospital on above:Performed By: #### RENAL, LIPID, LIVER, TSH #### [facility] [address] [address] [address] Eddie LernerAlbumin/Globulin [Mass ratio]0.6 {ratio}NormalThe [facility] Campusment on above:Performed By: #### RENAL, LIPID, LIVER, TSH #### [facility] [address] [address] [address] Eddie Bower [Catalytic activity/Vol]120 U/LCritically ccmj25-177Xdv [facility] Campusment on above:Performed By: #### RENAL, LIPID, LIVER, TSH #### [facility] [address] [address] [address] Eddie Pagan [Catalytic activity/Vol]22 U/PUlvoah91-51Wuz [facility] Campusment on above:Performed By: #### RENAL, LIPID, LIVER, TSH #### [facility] [address] [address] [address] Eddie LernerAST [Catalytic activity/Vol]15 U/YQsrgtz72-93Crp [facility] HospitalComment on above:Performed By: #### RENAL, LIPID, LIVER, TSH #### [facility] [address] [address] [address] Eddie Pandey, CONJUGATED0.1 mg/dLNormal0.0-0.2The [facility] Comment on above:Performed By: #### RENAL, LIPID, LIVER, TSH #### [facility] [address] [address] [address] Eddie Watsonirubin [Mass/Vol]0.3 mg/dLNormal0.2-1.0The [facility] Comment on above:Performed By: #### RENAL, LIPID, LIVER, TSH #### [facility] [address] [address] [address] Eddie LernerGlobulin (S) [Mass/Vol]4.7 g/dLNormalThe [facility] HospitalComment on above:Performed By: #### RENAL, LIPID, LIVER, TSH #### [facility] [address] [address] [address] Eddie LernerProtein [Mass/Vol]7.3 g/dLNormal6.4-8.2The [facility] Comment on above:Performed By: #### RENAL, LIPID, LIVER, TSH #### [facility] [address] [address] [address] Eddie BrinkAL FUNCTION PANELon 35-26-0369Cvzpoxm [Mass/Vol]9.0 mg/dL Normal8.5-10.1The [facility] HospitalComment on above:Performed By: #### RENAL, LIPID, LIVER, TSH #### [facility] [address] [address] [address] Eddie LernerChloride [Moles/Vol]96 mmol/LCritically ffm36-657Afl [facility] HospitalComment on above:Performed By: #### RENAL, LIPID, LIVER, TSH #### [facility] [address] [address] [address] Eddie LernerCO2 [Moles/Vol]21.8 mmol/TWxvjpz07.0-32.0The [facility] Comment on above:Performed By: #### RENAL, LIPID, LIVER, TSH #### [facility] [address] [address] [address] Eddie LernerCreatinine [Mass/Vol]2.38 mg/dLCritically high0.70-1.30The [facility] HospitalComment on above:Performed By: #### RENAL, LIPID, LIVER, TSH #### [facility] [address] [address] [address] Morgan ChangEGFR-AF SRGSYKZK60 mL/min/1.88d1Subzuefoth low>=60The [facility] HospitalComment on above:Performed By: #### RENAL, LIPID, LIVER, TSH #### [facility] [address] [address] [address] Morgan ChangEGFR-NON AF LCXLNWCJ15 mL/min/1.86b4Lqebqrznrq low>=60The [facility] HospitalComment on above:Performed By: #### RENAL, LIPID, LIVER, TSH #### [facility] [address] [address] [address] Eddie LernerGlucose [Mass/Vol]523 mg/dLCritically nuxb44-010Afy [facility] HospitalComment on above:Performed By: #### RENAL, LIPID, LIVER, TSH #### [facility] [address] [address] [address] Eddie LernerPhosphate [Mass/Vol]4.1 mg/dLNormal2.6-4.7The [facility] Comment on above:Performed By: #### RENAL, LIPID, LIVER, TSH #### [facility] [address] [address] [address] Eddie LernerPotassium [Moles/Vol]4.6 mmol/LNormal3.5-5.1The [facility] Comment on above:Performed By: #### RENAL, LIPID, LIVER, TSH #### [facility] [address] [place] [address] Dr. Eddie LernerSodium [Moles/Vol]128 mmol/LCritically fxr231-846Zpb [facility] HospitalComment on above:Performed By: #### RENAL, LIPID, LIVER, TSH #### [facility] [address] [place] [address] Dr. Eddie Llanes nitrogen [Mass/Vol]28.0 mg/dLCritically high7.0-18.0The [facility] HospitalComment on above:Performed By: #### RENAL, LIPID, LIVER, TSH #### [facility] [address] [place] [address] Dr. Eddie Summers 60-71-3646NUK9.308 uIU/mLNormal0.358-3.740The [facility] HospitalComment on above:Performed By: #### RENAL, LIPID, LIVER, TSH #### [facility] [address] [place] [address] Dr. Eddie Max 80-53-5144Crrwossov Ql (U)NegativeNormalNEGATIVEThe [facility] HospitalComment on above:Performed By: #### UA #### [facility] [address] [place] [address] Dr. Eddie LernerClarity (U)CLEARNormalCLEARThe [facility] HospitalComment on above: Performed By: #### UA #### [facility] [address] [address] [address] Eddie Espinallor (U)LT. YELLOWNormalYELLOWUk HealthcareComment on above:Performed By: #### UA #### [facility] [address] [address] [address] Eddie LernerGlucose Ql (U)>1000AbnormalNEGATIVEThe [facility] HospitalComment on above:Performed By: #### UA #### [facility] [address] [place] [address] Dr. Eddie LernerHemoglobin Ql (U)TRACE-INTACTAbnormalNEGATIVEUk HealthcareComment on above:Performed By: #### UA #### [facility] [address] [place] [address] Dr. Eddie Mcknightones Ql (U)NegativeNormalNEGATIVEUk HealthcareComment on above:Performed By: #### UA #### [facility] [address] [address] [address] Eddie LernerLEUKOCYTESNegativeNormalNEGATIVEUk HealthcareComment on above:Performed By: #### UA #### [facility] [address] [place] [address] Dr. Eddie LernerNitrite Ql (U)NegativeNormalNEGATIVEUk HealthcareComment on above:Performed By: #### UA #### [facility] [address] [place] [address] Dr. Eddie LernerpH (U)6.5 [pH]Normal5-9The [facility] HospitalComment on above: Performed By: #### UA #### [facility] [address] [address] [address] Eddie LernerSPEC GRAVITY1.953Zgapqu7.005-<=1.025The [facility] HospitalComment on above:Performed By: #### UA #### [facility] [address] [place] [address] Dr. Eddie Marino TIFNUAF918 mg/dlAbnormalNEGATIVE/ TRACEThe [facility] Comment on above:Performed By: #### UA #### [facility] [address] [place] [address] Dr. Eddie Morgan Qn (U)0.2 {Chaya'U}/dLNormal0.2 - 1.0Uk HealthcareComment on above:Performed By: #### UA #### [facility] [address] [address] [address] Eddie LernerVITAMIN D 25 OHon 34-30-1690DBA D 25-OH13.9 ng/mLNormalThe [facility] HospitalComment on above:Performed By: #### VITAD ####[facility] [address] [place], [place] [address]Dr. Eddie LernerVIT D RANGES SEE [facility]ja Medical CenterComment on above:Result Comment: <20 ng/mL Vit D deficient 20 - <30 ng/mL Vit D insufficient 30 - 100 ng/mL Vit D sufficient >100 ng/mL Potential ToxicityPerformed By: #### VITAD ####[facility] [address] [place], [place] [address]Dr. Eddie LernerACID FAST SMEAR AND CXon 27-75-5431Hxap Fast CultureNegativeSouthview Medical CenterComment on above:Result Comment: No acid fast bacilli isolated after 6 weeks.Performed By: #### AFB ####[facility] [address] [place], [place] [address]Dr.Eddie LernerAcid Fast SmearNegativeSouthview Medical CenterComment on above:Performed By: #### AFB ####[facility] [address] [place], [place] [address]Dr.Eddie LernerAFB Specimen ProcessingTissue GrAkron Children's HospitalComascension borgess allegan hospital on above:Performed By: #### AFB ####[facility] [address] [place], [place] [address]Dr.Eddie LernerFUNGAL CULTUREon 11-14-9772Xnliqi (Mycology) CultureFinal reportNoHenry County HospitalComment on above:Performed By: #### RENAL, LIPID, LIVER, TSH #### [facility] [address] [address] [address] Eddie Walker StainFinal reportSouthview Medical CenterComment on above:Performed By: #### RENAL, LIPID, LIVER, TSH #### [facility] [address] [address] [address] Eddie Sutton 1CommentSouthview Medical CenterComment on above:Result Comment: ANNEMARIE/Calcofluor preparation: no fungus observed.Performed By: #### RENAL, LIPID, LIVER, TSH #### [facility] [address] [address] [address] Eddie Sutton Comment: No yeast or mold isolated after 4 weeks.POINT OF CARE GLUCOSEon 43-13-2175Ttaafgp [Mass/Vol]177 mg/dLCritically ruck20-047Els [facility] HospitalComment on above:Performed By: #### A1C #### [facility] [address] [address] [address] Eddie LernerGlucose [Mass/Vol]200 mg/dLCritically jbtt30-139ZkcUk HealthcareComment on above:Performed By: #### POCGLUC ####[facility] [address] [address]Dr. Eddie LernerCovid-19 PCR ([facility])on 50-00-8719OMUE-CoV-2 (COVID-19) RNA SUDHA+probe Ql (Unsp spec)Not detectedNormalNOT DETECTEDThe [facility] on above:Result Comment: This test is not yet approved or cleared by the [place] FDA. When there are no FDA-approved or cleared tests available, and other criteria are met, FDA can make tests available under an emergency access mechanism called an Emergency Use Authorization (EUA). The EUA for this test is supported by the Key Holder of Health and Human Service's (HHS's) declaration [...] consistent with SARS-CoV-2.Performed By: #### A1C #### [facility] [address] [place] [address] Dr. Eddie LernerPROF CHEM 8 (BAS METB)on 59-64-4125Mgscd gap [Moles/Vol]15.0 mmol/LNormalUk HealthcareComment on above:Performed By: #### RENAL, LIPID, LIVER, TSH #### [facility] [address] [place] [address] Dr. Eddie LernerCalcium [Mass/Vol]9.3 mg/dLNormal8.5-10.1[facility] Comment on above:Performed By: #### RENAL, LIPID, LIVER, TSH #### [facility] [address] [place] [address] Dr. Eddie LernerChloride [Moles/Vol]105 mmol/UVhhbsn65-307MzbUk Healthcare Comment on above:Performed By: #### RENAL, LIPID, LIVER, TSH #### [facility] [address] [place] [address] Dr. Eddie LernerCO2 [Moles/Vol]22.1 mmol/EElrlum46.0-32.0[facility] Comment on above:Performed By: #### RENAL, LIPID, LIVER, TSH #### [facility] [address] [place] [address] Dr. Eddie LernerCreatinine [Mass/Vol]2.29 mg/dLCritically high0.70-1.30The [facility] HospitalComment on above:Performed By: #### RENAL, LIPID, LIVER, TSH #### [facility] [address] [place] [address] Dr. Morgan ChangEGFR-AF JPJOQTHV28 mL/min/1.35l2Ghvzpjbnto low>=60The [facility] HospitalComment on above:Performed By: #### RENAL, LIPID, LIVER, TSH #### [facility] [address] [address] [address] Morgan ChangEGFR-NON AF RKOKSPXK46 mL/min/1.67u6Rljjopwnfp low>=60The [facility] HospitalComment on above:Performed By: #### RENAL, LIPID, LIVER, TSH #### [facility] [address] [address] [address] Eddie LernerGlucose [Mass/Vol]115 mg/dLCritically pkip81-679Cmj [facility] HospitalComment on above:Performed By: #### RENAL, LIPID, LIVER, TSH #### [facility] [address] [address] [address] Eddie LernerPotassium [Moles/Vol]5.1 mmol/LNormal3.5-5.1[facility] Comment on above:Performed By: #### RENAL, LIPID, LIVER, TSH #### [facility] [address] [address] [address] Eddie LernerSodium [Moles/Vol]137 mmol/ENvblpb160-683Njc [facility] Comment on above:Performed By: #### RENAL, LIPID, LIVER, TSH #### [facility] [address] [address] [address] Eddie LernerUrea nitrogen [Mass/Vol]26.0 mg/dLCritically high7.0-18.0The [facility] HospitalComment on above:Performed By: #### RENAL, LIPID, LIVER, TSH #### [facility] [address] [address] [address] Eddie Llanes nitrogen/Creatinine [Mass ratio]11.4 mg/mgNoHenry County HospitalComment on above:Performed By: #### RENAL, LIPID, LIVER, TSH #### [facility] [address] [address] [address] Eddie Stover CULTUREon 48-55-1072Iuxqtdwpp Culture, Extended Incubation Final reportNoHenry County HospitalComment on above:Performed By: #### CXTISSU ####[facility] [address] [address]Dr. Eddie Sutton [address] [place], [place] [address]Comment on above: Result Comment: Diphtheroids, not Corynebacterium jeikeium Light growth Susceptibility not normally performed on this organism.Performed By: #### CXTISSU ####[facility] [address] [id number]. Eddie Hilarioult Comment: No anaerobes recovered.Tissue CultureFinal reportSt. Charles HospitalComment on above:Performed By: #### CXTISSU ####[facility] [address] [address]Dr. Eddie LernerPIEDMONT [facility] GLUCOSEon 71-56-0302Joumzyi [Mass/Vol]89 mg/dLNormal 74-106Uk HealthcareComment on above:Performed By: #### RENAL, LIPID, LIVER, TSH #### [facility] [address] [address] [address] Eddie LernerGlucose [Mass/Vol]85 mg/vOMpwqah45-522LwxUk Healthcare Comment on above:Performed By: #### POCGLUC ####[facility] [address] [address]Dr. Eddie Newman STAINon 12-21-2021 COMMENTSNO [facility] DublinComasc[facility] on above: Performed By: #### RENAL, LIPID, LIVER, TSH #### [facility] [address] [address] [address] Eddie OliveraPHTHEROIDSSouthview Medical CenterComment on above:Performed By: #### RENAL, LIPID, LIVER, TSH #### [facility] [address] [address] [address] Eddie ClaytonALSSouthview Medical CenterComascension borg[facility] allegan hospital on above:Performed By: #### RENAL, LIPID, LIVER, TSH #### [facility] [address] [address] [address] Eddie Slaughter ELEMENTSSouthview Medical CenterComment on above: Performed By: #### RENAL, LIPID, LIVER, TSH #### [facility] [address] [address] [address] Eddie Newman NEG BACILLISouthview Medical CenterComment on above: Performed By: #### RENAL, LIPID, LIVER, TSH #### [facility] [address] [address] [address] Eddie Newman NEG DIPPLOCOCCISouthview Medical CenterComascension borgess allegan hospital on above: Performed By: #### RENAL, LIPID, LIVER, TSH #### [facility] [address] [address] [address] Eddie Newman POS BACILLISouthview Medical CenterComascension borg[facility] allegan hospital on above: Performed By: #### RENAL, LIPID, LIVER, TSH #### [facility] [address] [address] [address] Eddie Newman POSITIVE COCCINoHenry County HospitalComment on above: Performed By: #### RENAL, LIPID, LIVER, TSH #### [facility] [address] [address] [address] Eddie Newman STAIN SOURCELt 1st Metatarsal BoneSouthview Medical CenterComment on above:Performed By: #### RENAL, LIPID, LIVER, TSH #### [facility] [address] [address] [address] Eddie Morales_DIPTHSouthview Medical CenterComascension borgess allegan hospital on above:Performed By: #### RENAL, LIPID, LIVER, TSH #### [facility] [address] [address] [address] Eddie MorleyBCRARENormalUk HealthcareComascension borgess allegan hospital on above:Performed By: #### RENAL, LIPID, LIVER, TSH #### [facility] [address] [address] [address] Eddie [facility]PIED[facility] GLUCOSEon 82-52-2102Hqsxwaq [Mass/Vol]148 mg/dL Critically ormb29-290FavUk HealthcareComment on above:Performed By: #### A1C #### [facility] [address] [address] [address] Eddie LernerGlucose [Mass/Vol]100 mg/jTXoxkcl79-713Jxd [facility] Comment on above:Performed By: #### POCGLUC ####[facility] [address] [place], [place] [address]Fx. Eddie ChangGlucose [Mass/Vol]85 mg/dL Wjxxxm95-329HxoUk HealthcareComment on above:Performed By: #### POCGLUC ####[facility] [address] [place], [place] [address]Gd. Eddie ChangGlucose [Mass/Vol]83 mg/mRMnyhwx86-200JdoUk HealthcareComment on above:Performed By: #### RENAL, LIPID, LIVER, TSH #### [facility] [address] [place], [place] [address] Dr. Eddie LernerCovid-19 PCR (CVDTB)on 31-54-2243HPKE-CoV-2 (COVID-19) RNA SUDHA+probe Ql (Unsp spec)Not detectedNormalNOT DETECTEDUk Healthcare Comment on above:Result Comment: This test is not yet approved or cleared by the [place] FDA. When there are no FDA-approved or cleared tests available, and other criteria are met, FDA can make tests available under an emergency access mechanism called an Emergency Use Authorization (EUA). The EUA for this test is supported by the [place] of Health and Human Service's (HHS's) declaration [...] symptoms consistent with SARS-CoV-2.Performed By: #### CVDTBH ####[facility] [address] [place], [place] [address]NnVaishali LernerPROF CHEM 8 (BAS METB)on 34-96-2027Zjfyg gap [Moles/Vol]11.5 mmol/LNormalUk HealthcareComment on above:Performed By: #### RENAL, LIPID, LIVER, TSH #### [facility] [address] [address] [address] Eddie LernerCalcium [Mass/Vol]9.0 mg/dLNormal8.5-10.1[facility] Comment on above:Performed By: #### RENAL, LIPID, LIVER, TSH #### [facility] [address] [address] [address] Eddie LernerChloride [Moles/Vol]102 mmol/DLvhgly66-382Kmy [facility] Comment on above:Performed By: #### RENAL, LIPID, LIVER, TSH #### [facility] [address] [address] [address] Eddie LernerCO2 [Moles/Vol]24.8 mmol/GViygfg63.0-32.0[facility] Comment on above:Performed By: #### RENAL, LIPID, LIVER, TSH #### [facility] [address] [place] [address] Dr. Eddie LernerCreatinine [Mass/Vol]2.19 mg/dLCritically high0.70-1.30The [facility] City HospitalComment on above:Performed By: #### RENAL, LIPID, LIVER, TSH #### [facility] [address] [place] [address] Dr. Morgan ChangEGFR-AF NINNQQZO67 mL/min/1.54s1Yubrshxwxp low>=60The [facility] HospitalComment on above:Performed By: #### RENAL, LIPID, LIVER, TSH #### [facility] [address] [place] [address] Dr. Morgan ChangEGFR-NON AF MAQXUKTS72 mL/min/1.44a3Wvwhycxvhw low>=60The [facility] HospitalComment on above:Performed By: #### RENAL, LIPID, LIVER, TSH #### [facility] [address] [place] [address] Dr. Eddie LernerGlucose [Mass/Vol]330 mg/dLCritically rssv22-388Vrr [facility] HospitalComment on above:Performed By: #### RENAL, LIPID, LIVER, TSH #### [facility] [address] [address] [address] Eddie LernerPotassium [Moles/Vol]5.3 mmol/LCritically high3.5-5.1The [facility] HospitalComment on above:Performed By: #### RENAL, LIPID, LIVER, TSH #### [facility] [address] [address] [address] Eddie LernerSodium [Moles/Vol]133 mmol/LCritically rym772-480Vjf [facility] HospitalComment on above:Performed By: #### RENAL, LIPID, LIVER, TSH #### [facility] [address] [address] [address] Eddie LernerUrea nitrogen [Mass/Vol]25.0 mg/dLCritically high7.0-18.0The [facility] HospitalComment on above:Performed By: #### RENAL, LIPID, LIVER, TSH #### [facility] [address] [address] [address] Eddie Llanes nitrogen/Creatinine [Mass ratio]11.4 mg/mgNormalThe [facility] HospitalComment on above:Performed By: #### RENAL, LIPID, LIVER, TSH #### [facility] [address] [address] [address] Eddie LernerAlbumin [Mass/volume] in Serum or Plasmaon 07-44-0399Tlcfmkr [Mass/Vol]2.0 g/dL3.2-5.5FSelect Medical [facility]Health Rehabilitation Hospital CtrBasophils Auto (Bld) [#/Vol]on 51-54-5637Qjjifckco (Bld) [#/Vol]0.0 10*3/uL0.0-0.2FSelect Medical [facility]Health Rehabilitation Hospital CtrBasophils/100 WBC Auto (Bld)on 06-73-2766Qoguduzcb/100 WBC (Bld)0.1 % [facility] CtrBlood anisocytosis detectionon 08-25-2020 Anisocytosis Ql (Bld)SlightOhio State Health System CtrBlood hemoglobin measurement (mass/volume)on 10-59-7639Vvxucugdii (Bld) [Mass/Vol]10.1 g/dL 13.0-17.0[facility] CtrBlood leukocytes automated count (number/volume)on 87-13-4268EXH (Bld) [#/Vol]12.6 10*3/uL4.5-11.0[facility] CtrBlood polychromasia detection by light microscopyon 99-27-2007Nbmrjdrmyzgky LM Ql (Bld)SlightOhio State Health System Ctr Creatinine and Glomerular filtration rate.predicted panel (S/P/Bld)on 08-25-2020 Creatinine [Mass/Vol]4.06 mg/dL0.64-1.27[facility] Eosinophils Auto (Bld) [#/Vol]on 53-52-8187Baikpycwkfj (Bld) [#/Vol]0.0 10*3/uL 0.0-0.45[facility] CtrEosinophils/100 WBC Auto (Bld)on 61-03-6528Doucggulagw/100 WBC (Bld)0.1 %[facility]tr Erythrocyte distribution width Auto (RBC) [Ratio]on 80-24-2672Pklsolqxqmw distribution width (RBC) [Ratio]16.6 %12.0-14.8[facility] Estimated glomerular filtration rate (GFR) non- Americanon 08-25-2020 GFR/1.73 sq M.predicted among non-blacks MDRD (S/P/Bld) [Vol rate/Area]15 mL/Min [facility] CtrGlucose Glucometer (BldC) [Mass/Vol]on 08-25-2020 Glucose [Mass/Vol]122 mg/dLOhio State Health System CtrComment on above:Random Glucose Reference Range is dependent on time and content of last meal. Glucose of more than 200 mg/dL in a nonstressed, ambulatory subject supports the diagnosis of Diabetes Mellitus.Hematocrit Auto (Bld) [Volume fraction]on 76-32-4721Cyiaipldno (Bld) [Volume fraction]31.7 %38.8-50.0[facility] CtrLaboratory - Hematology and Cell countson 63-56-5701Naxxjamez RBC/100 WBC (Bld) [Ratio]0.2 %0-0.5FSelect Medical [facility]Health Rehabilitation Hospital CtrLymphocytes Auto (Bld) [#/Vol]on 27-03-1730Paxbwzsmmov (Bld) [#/Vol]1.1 10*3/uL1.00-4.8[facility] CtrLymphocytes/100 WBC Auto (Bld)on 43-60-1228Ggfgjzsfeur/100 WBC (Bld)8.9 %[facility] CtrMCH Auto (RBC) [Entitic mass]on 03-01-6293SDP (RBC) [Entitic mass]26.2 pg27.5-35.2FOur [facility] of Mer[facility] MCHC Auto (RBC) [Mass/Vol]on 23-71-7024KILW (RBC) [Mass/Vol]31.9 g/dL32.5-35.6 [facility] HospitalMCV Auto (RBC) [Entitic vol]on 81-93-6894ZOO (RBC) [Entitic vol]82.3 fL83.5-101[facility] CtrMonocytes Auto (Bld) [#/Vol]on 77-01-6250Nlwblfpkr (Bld) [#/Vol]1.2 10*3/uL0.0-0.8[facility] CtrMonocytes/100 WBC Auto (Bld)on 51-86-2803Abtdfkthc/100 WBC (Bld)9.6 % [facility] CtrNeutrophils Auto (Bld) [#/Vol]on 08-25-2020 Neutrophils (Bld) [#/Vol]10.2 10*3/uL1.8-7.7FSelect Medical [facility]Health Rehabilitation Hospital Ctr Neutrophils/100 WBC Auto (Bld)on 72-74-4276Vfnkanumeob/100 WBC (Bld)81.3 % [facility] CtrNo Panel Informationon 60-20-1924Mpvxdmq Glucose CommentGlu2: cleaned meterOhio State Health System CtrEstimated GFR ()18 mL/MinOhio State Health System CtrComment on above:GFR estimated reference range: According to KDOQI guidelines, <60 ml/min/1.73m2 is sufficient todiagnose a patient with chronic kidney disease.Pharmacy Creatinine Clearance (Chem31.84[facility] CtrPlatelet EstimateNormalNormalOhio State Health System CtrPlatelet Morphology CommentNormalNormalOhio State Health System CtrPhosphate [Mass/volume] in Serum or Plasmaon 61-00-6902Oxnwqhfzz [Mass/Vol]5.3 mg/dL2.5-4.6FSelect Medical OhioHealth Rehabilitation Hospital CtrPlatelet mean volume Auto (Bld) [Entitic vol]on 69-52-0279Dnglxmps mean volume (Bld) [Entitic vol]7.1 fL6.6-10.1FSelect Medical [facility]Health Rehabilitation Hospital CtrPlatelets Auto (Bld) [#/Vol]on 65-77-8621Nmxtcspzj (Bld) [#/Vol]388 10*3/sG101-932WbskcsezsOhio State Health System CtrRBC Auto (Bld) [#/Vol]on 73-29-1762RQD (Bld) [#/Vol]3.85 10*6/uL3.90-5.60 [facility] HospitalRBC morphologyon 95-09-5406SCM morphology finding Nom (Bld)N/AFSelect Medical [facility] Rehabilitation Hospital CtrSerum or plasma calcium measurement (mass/volume)on 26-43-0259Taoyenk [Mass/Vol]8.7 mg/dL8.2-10.2FSelect Medical [facility]Health Rehabilitation Hospital CtrSerum or plasma chloride measurement (moles/volume)on 08-25-2020 Chloride [Moles/Vol]99 mmol/C44-524ShebetkfrOhio State Health System CtrSerum or plasma glucose measurement (mass/volume)on 16-89-1356Czznokw [Mass/Vol]113 mg/nJ80-437 [facility] CtrComment on above:ADA recommended reference rangeRandom Glucose Reference Range is dependent on time and content of last meal. Glucose of more than 200 mg/dL in a nonstressed, ambulatory subject supports the diagnosisof Diabetes Mellitus.Serum or plasma potassium measurement (moles/volume)on 13-67-3721Mhngnstzs [Moles/Vol]4.6 mmol/L3.5-5.1FSelect Medical [facility]Health Rehabilitation Hospital CtrSerum or plasma sodium measurement (moles/volume)on 80-70-1693Iveaqu [Moles/Vol]135 mmol/T683-741DgkvrkekmOhio State Health System CtrSerum or plasma total carbon dioxide measurement (moles/volume)on 50-24-0260TE7 [Moles/Vol]26.2 mmol/L22.0-30.0[facility] CtrSerum or plasma urea nitrogen measurement (mass/volume)on 45-40-0451Cuai nitrogen [Mass/Vol]75 mg/dL9-23[facility] CtrErythrocyte basophilic stippling detectionon 82-97-0695Pcmnuuasvk stippling LM Ql (Bld)SlightOhio State Health System CtrLaboratory - Hematology and Cell countson 40-47-6172Girk form neutrophils/100 WBC (Bld)1 %0-5FSelect Medical [facility]Health Rehabilitation Hospital CtrLymphocytes/100 WBC Auto (Bld)on 66-03-2683Tklizuvmwzf/100 WBC (Bld)6 %18-42[facility] CtrMetamyelocytes/100 WBC Manual cnt (Bld)on 08-24-2020 Metamyelocytes/100 WBC (Bld)1 %0-0[facility] CtrMonocytes/100 WBC Manual cnt (Bld)on 31-43-6064Dngnlcvuc/100 WBC (Bld)4 %2-11[facility] CtrMyelocytes/100 WBC Manual cnt (Bld)on 08-24-2020 Myelocytes/100 WBC (Bld)1 %0-0[facility] CtrNo Panel Information on 95-72-8049VyswuuhKzaczmIkqujetzy Regional Medical CtrSegmented neutrophils/100 WBC Manual cnt (Bld)on 07-89-2288Kwbmyssat neutrophils/100 WBC (Bld)87 %50-70[facility] CtrNo Panel Informationon 08-23-2020 Bedside Glucose #[address]/[facility] CtrBedside Glucose #3 CommentCleaned meterOhio State Health System CtrSerum nuclear antibody titeron 08-77-1194Vrmuwwe Ab (S) [Titer]NegativeOhio State Health System CtrComment on above:Negative <1:80 Borderline 1:80 Positive >1:80Performed at: - [facility] [id number] Director: Mata Brian PhD, Phone: [phone] or plasma rheumatoid factor measurement (units/volume)on 49-32-2883Fyqosjxbpc factor Qn20.6 [IU]/mL [facility] CtrComment on above:Performed at: - [facility] [id number] Director: Mata Brian PhD, Phone: [phone] biopsyon 31-98-1065Wjwwfkfxhpb [Mass/Vol]104 mg/lA006-004 [facility] CtrFerritin [Mass/volume] in Serum or Plasmaon 21-05-3899Owdqdiwl [Mass/Vol]334.8 ng/mL23.9-336.2FSelect Medical [facility]Health Rehabilitation Hospital Ctr Iron [Mass/volume] in Serum or Plasmaon 27-64-4490Icut [Mass/Vol]17 ug/eO84-671 [facility] CtrIron binding capacity [Mass/volume] in Serum or Plasmaon 56-95-3502Npqq binding capacity [Mass/Vol]146 ug/cP250-657GxmcjosxwOhio State Health System CtrIron saturation [Mass Fraction] in Serum or Plasmaon 66-43-6616Dvcz saturation [Mass fraction]11.0 %20-50[facility] CtrCreatine kinase [Enzymatic activity/volume] in Serum or Plasmaon 59-36-0919PN [Catalytic activity/Vol]45 U/I12-442NaffcrlcjOhio State Health System CtrNo Panel Informationon 99-71-4773Bpnjh BodiesSlightOhio State Health System CtrSerum or plasma cardiac troponin I measurement (mass/volume)on 80-43-8418Rzsfqcqq I.cardiac [Mass/Vol]ng/mL0-0.02[facility] CtrComment on above: HÉCTOR UT Cut off value > or equal to 0.03 ng/mL in conjunction with clinical conditions of myocardial infarction.(www.escardio.org/guidelines)Serum or plasma creatine kinase MB (CKMB)/total creatine kinase (CK) ratio by calculaon 36-47-0634FJ.MB Calc [Catalytic fraction]5.1 %0.00-2.50[facility] CtrSerum or plasma creatine kinase MB measurement (mass/volume)on 16-14-3240IJ.MB [Mass/Vol]2.3 ng/mL0.6-6.3FSelect Medical [facility]Health Rehabilitation [facility] Ctr Erythrocyte sedimentation rate by Photometric methodon 34-25-9715JOA Photometric method (Bld) [Velocity]108 mm/hr0-19[facility] CtrSerum or plasma C reactive protein measurement (mass/volume)on 85-53-0423DRO [Mass/Vol] 19.4 mg/dL0.0-1.0[facility] CtrABO and Rh group post transfusion reaction Nom (Bld)on 34-52-0390Begzyqxibct observation Gram stain Nom (Unsp spec)[facility] CtrGlucose mean value [Mass/volume] in Blood Estimated from glycated hemoglobinon 81-85-9840Irlmjqn glucose Estimated from glycated hemoglobin (Bld) [Mass/Vol]298 mg/dLOhio State Health System Ctr Hemoglobin A1c percentageon 05-58-6655VjO1r (Bld) [Mass fraction]12.0 %4.3-5.6 [facility] CtrComment on above:Increased risk for diabetes: 5.7 - 6.4diabetes: >6.4glycemic control for adults with diabetes: <7.0Laboratory - Chemistry and Chemistry - challengeon 67-69-0490Xmvdqlljh [Mass/Vol]2.0 mg/dL 1.6-2.6FSelect Medical [facility]Health Rehabilitation Hospital CtrNo Panel Informationon 173208-Aqjuwbr Vitamin D Total24.6 ng/aT98-985HouxjfrxjOhio State Health System CtrComment on above: VITAMIN D STATUS 25(OH)VITAMIN D RANGE (ng/mL) Deficient <20 Insufficient 20 to <22Vsczgybine62 to 100Reference: Aki MF,Oriana NGUYEN, Elli JONAS, et al. Evaluation,treatment, and prevention of vitamin D deficiency; an Endocrine Society clinical practice guideline. JCEM. 2010; 96(7):1911-30.Activated partial thromboplastin time (aPTT) in platelet poor plasma by coagulation aon 46-61-9997cTNH Coag (PPP) [Time]36.9 s25.1-36.5FSelect Medical [facility] Rehabilitation Hospital Ctr Albumin [Mass/volume] in Serum or Plasmaon 17-58-9704Xdfrhfk [Mass/Vol]2.7 g/dL 3.2-5.5FSelect Medical [facility]Health Rehabilitation Hospital CtrBacterial blood cultureon 08-18-2020 Bacteria identified Cx Nom (Bld)NO GROWTH 5 DAYSOhio State Health System Ctr Basophils Auto (Bld) [#/Vol]on 17-73-3229Wxwuzxagu (Bld) [#/Vol]0.0 10*3/uL 0.0-0.2FSelect Medical [facility]Health Rehabilitation Hospital CtrBasophils/100 WBC Auto (Bld)on 08-18-2020 Basophils/100 WBC (Bld)0.3 %[facility] CtrBeta-hydroxybutyric acid measurementon 83-70-7917Qauz hydroxybutyrate [Mass/Vol]0.44 mmol/L0.02-0.27 [facility] CtrBlood hemoglobin measurement (mass/volume)on 87-45-2082Vyeqkqjvvt (Bld) [Mass/Vol]11.8 g/dL13.0-17.0[facility] HospitalBlood leukocytes automated count (number/volume)on 94-67-7838KRT (Bld) [#/Vol]15.3 10*3/uL4.5-11.0[facility] CtrCOVID-19 Detected/Not Detectedon 41-10-1364OXJY-CoV-2 (COVID-19) RNA SUDHA+non-probe Ql (Nph)Not detectedNot DetecteFSelect Medical [facility] Rehabilitation [facility] CtrComment on above:This is a duplicate RP2.1 COVID (PCR) result to be used for statistical tracking purpose only.COVID-19 SOFIAon 49-65-5132UBNF-CoV+SARS-CoV-2 (COVID-19) Ag IA.rapid Ql (Resp)NegativeNegativeOhio State Health System CtrComment on above:This is a duplicate Ayah SARS Antigen (AGUSTINA) result to be used for statistical tracking purpose only.Creatinine and Glomerular filtration rate.predicted panel (S/P/Bld)on 09-24-6071Wxngjxzrni [Mass/Vol]3.04 mg/dL 0.64-1.27[facility] CtrEosinophils Auto (Bld) [#/Vol]on 77-34-7560Cmieslifqay (Bld) [#/Vol]0.5 10*3/uL0.0-0.45[facility] CtrEosinophils/100 WBC Auto (Bld)on 63-81-3831Sskvndalunv/100 WBC (Bld)3.4 % [facility] CtrErythrocyte distribution width Auto (RBC) [Ratio] on 45-88-5880Qtluettimrp distribution width (RBC) [Ratio]16.3 %12.0-14.8 [facility] CtrEstimated glomerular filtration rate (GFR) non- Americanon 01-32-3303UFP/1.73 sq M.predicted among non-blacks MDRD (S/P/Bld) [Vol rate/Area]21 mL/MinOhio State Health System CtrGlobulin Calc (S) [Mass/Vol]on 39-93-7674Zzjaaxky (S) [Mass/Vol]4.4 g/dLOhio State Health System CtrGlucose Glucometer (BldC) [Mass/Vol]on 79-62-9844Biqkhkm [Mass/Vol] 388 mg/dLOhio State Health System CtrComment on above:Random Glucose Reference Range is dependent on time and content of last meal. Glucose of more than 200 mg/dL in a nonstressed, ambulatory subject supports the diagnosis of Diabetes Mellitus.Hematocrit Auto (Bld) [Volume fraction]on 39-73-1742Zowoihovjr (Bld) [Volume fraction]36.1 %38.8-50.0[facility] CtrLaboratory - Chemistry and Chemistry - challengeon 64-21-4395AI5 [Moles/Vol]25.7 mmol/L 24.0-29.0[facility] CtrHCO3 (Bld) [Moles/Vol]24.3 mmol/L 23.0-29.0[facility] CtrMagnesium [Mass/Vol]2.2 mg/dL1.6-2.6 [facility] CtrNatriuretic peptide B (Bld) [Mass/Vol]48.0 pg/mL 5-100[facility] CtrLaboratory - Coagulationon 69-39-3945VH Coag (PPP) [Time]11.7 s9.0-12.9[facility] CtrLaboratory - Hematology and Cell countson 83-20-9271Kmsrpefeq RBC/100 WBC (Bld) [Ratio]0.1 %0-0.5 [facility] CtrLymphocytes Auto (Bld) [#/Vol]on 08-18-2020 Lymphocytes (Bld) [#/Vol]0.9 10*3/uL1.00-4.8[facility] Lymphocytes/100 WBC Auto (Bld)on 64-37-9136Dlebzryzunv/100 WBC (Bld)6.1 % [facility] HospitalH Auto (RBC) [Entitic mass]on 45-82-3923IEX (RBC) [Entitic mass]27.2 pg27.5-35.2FOur Lady of Mercy HospitalMCHC Auto (RBC) [Mass/Vol]on 86-37-2334TAZC (RBC) [Mass/Vol]32.6 g/dL32.5-35.6FSt. Francis HospitalV Auto (RBC) [Entitic vol]on 15-73-5244WNT (RBC) [Entitic vol]83.5 fL83.5-101[facility] CtrMonocytes Auto (Bld) [#/Vol]on 41-21-1827Znncvnbnu (Bld) [#/Vol]1.5 10*3/uL0.0-0.8[facility] CtrMonocytes/100 WBC Auto (Bld)on 46-01-2533Ipayighct/100 WBC (Bld)10.1 % [facility] CtrNeutrophils Auto (Bld) [#/Vol]on 08-18-2020 Neutrophils (Bld) [#/Vol]12.3 10*3/uL1.8-7.7FSelect Medical [facility] Rehabilitation [facility] Ctr Neutrophils/100 WBC Auto (Bld)on 60-47-4355Sgnovicvkkz/100 WBC (Bld)80.1 % [facility] CtrNo Panel Informationon 57-96-8201Tmpjhsparke Panel (PCR)[facility] CtrBlood Gas Critical ValueSee commentOhio State Health System CtrComment on above:Critical Value called on: 08/18/2020 at 17:44Blood Gas Sample SiteVenousOhio State Health System OfvJcS635 %[facility] CtrVenous Blood Base Excess-1.5 mmol/L-3.0-3.0[facility] CtrVenous Blood Oxygen Content4.1 mmol/L6.6-9.7FSelect Medical [facility] Rehabilitation Hospital CtrVenous Blood Oxygen Znrgfjizxk17.3 %73.0-76.0[facility] CtrVenous Blood Partial Pressure CO245.2 mm[Hg]38.0-50.0 [facility] CtrVenous Blood Partial Pressure O224.4 mm[Hg] 35.0-45.0[facility] CtrVenous Blood pH7.357.32-7.43[facility] CtrEstimated GFR ()26 mL/MinOhio State Health System CtrComment on above:GFR estimated reference range: According to KDOQI guidelines, <60 ml/min/1.73m2 is sufficient todiagnose a patient with chronic kidney disease.Pharmacy Creatinine Clearance (Chem38.57[facility] CtrPlatelet mean volume Auto (Bld) [Entitic vol]on 69-20-7820Iwyhqbym mean volume (Bld) [Entitic vol]7.3 fL6.6-10.1FSelect Medical [facility] Rehabilitation [facility] Ctr Platelet poor plasma international normalized ratio (INR) by coagulation assay (relaton 71-27-9456ZLI Coag (PPP) [Relative time]1.0 {INR}[facility] CtrComment on above:INR Therapeutic Range A) Pre- [...] valves: 3 - 4.5Platelets Auto (Bld) [#/Vol]on 63-37-4775Pzhwusnnq (Bld) [#/Vol]249 10*3/xF503-894MpkjpvxvwOhio State Health System CtrProtein [Mass/volume] in Serum or Plasmaon 15-61-8623Glbodci [Mass/Vol]7.1 g/dL6.1-7.9[facility] CtrRBC Auto (Bld) [#/Vol]on 49-80-8203FYX (Bld) [#/Vol]4.32 10*6/uL 3.90-5.60[facility] CtrSerum or plasma alanine aminotransferase measurement without P-5'-P (enzymatic activion 89-19-9279UTU No additional P-5'-P [Catalytic activity/Vol]13 U/Z95-01KbmaqsrccOhio State Health System CtrSerum or plasma albumin/globulin mass ratioon 26-71-4328Jxuuiyi/Globulin [Mass ratio]0.6 {ratio}[facility] CtrSerum or plasma alkaline phosphatase measurement (enzymatic activity/volume)on 23-83-1235AHC [Catalytic activity/Vol] 88 U/L19-15WukzfjmraOhio State Health System CtrSerum or plasma aspartate aminotransferase measurement (enzymatic activity/volume)on 04-05-5348CPO [Catalytic activity/Vol]16 U/Q46-73TkgoimizbOhio State Health System CtrSerum or plasma calcium measurement (mass/volume)on 37-41-6387Pbforyh [Mass/Vol]8.9 mg/dL 8.2-10.2FSelect Medical [facility] Rehabilitation Hospital CtrSerum or plasma cardiac troponin I measurement (mass/volume)on 71-92-5720Jfufrxij I.cardiac [Mass/Vol]ng/mL0-0.02 [facility] CtrComment on above:HÉCTOR UT Cut off value > or equal to 0.03 ng/mL in conjunction with clinical conditions of myocardial infarction.(www.escardio.org/guidelines)Serum or plasma chloride measurement (moles/volume)on 86-78-0395Ijnizgsf [Moles/Vol]95 mmol/W36-764LwimjqwpfOhio State Health System CtrSerum or plasma glucose measurement (mass/volume)on 08-18-2020 Glucose [Mass/Vol]512 mg/cR23-632OjjjfldclOhio State Health System CtrComment on above: Results calledat 1659 on 08/18/20 ADA recommended reference rangeRandom Glucose Reference Range is dependent on time and content of last meal. Glucose of more than 200 mg/dL in a nonstressed, ambulatory subject supports the diagnosis of Diabetes Mellitus.Serum or plasma potassium measurement (moles/volume)on 53-99-9853Heqonujkw [Moles/Vol]4.2 mmol/L3.5-5.1FOur Lady of Mercy Hospital Serum or plasma sodium measurement (moles/volume)on 33-57-3782Eqvmuw [Moles/Vol] 128 mmol/K673-369BhjvmwarpOhio State Health System CtrSerum or plasma total bilirubin measurement (mass/volume)on 85-17-9797Fhhlqcfym [Mass/Vol]0.7 mg/dL0.3-1.2 [facility] CtrSerum or plasma total carbon dioxide measurement (moles/volume)on 29-98-8195IQ3 [Moles/Vol]22.6 mmol/L22.0-30.0[facility] CtrSerum or plasma urea nitrogen measurement (mass/volume)on 08-18-2020 Urea nitrogen [Mass/Vol]27 mg/dL9-[facility] CtrCBC COMPLETE BLOOD COUNTon 33-53-9803Augsjckgoae distribution width (RBC) [Ratio]15.0 %Normal 11.5-15.0The [facility]. Charles HospitalComment on above:Order Comment: No: Do not add to previous drawPerformed By: #### [id number] #### [facility] [address] [place] [address], [facility]ATRIC CENTERHematocrit (Bld) [Volume fraction]32.4 %Low39.0-50.0The St. Charles HospitalComment on above:Order Comment: No: Do not add to previous drawPerformed By: #### [id number] #### [facility] [address] [place] [address], [facility]AT[facility] CENTERHemoglobin (Bld) [Mass/Vol]9.5 g/dLLow13.0-17.0The St[facility] Charles HospitalComment on above:Order Comment: No: Do not add to previous drawPerformed By: #### [id number] #### [facility] [address] [facility] [address], [facility] (RBC) [Entitic mass]26.7 pgLow27.0-33.0The St[facility] Charles HospitalComment on above:Order Comment: No: Do not add to previous drawPerformed By: #### [id number] #### [facility] [address] [facility] [place] [address], [facility] (RBC) [Mass/Vol]29.3 g/dLLow32.0-35.0The St[facility] Charles HospitalComment on above:Order Comment: No: Do not add to previous drawPerformed By: #### [id number] #### [facility] [address] [place] [id number], [facility]ATR[facility] CENTERMCV (RBC) [Entitic vol]91.0 vEKsnpmf62.0-98.0The St[facility] Charles HospitalComment on above:Order Comment: No: Do not add to previous drawPerformed By: #### 05586 #### [facility] [address] [place] [address], [facility] PSYCHIATRIC CENTERNucleated RBC/100 WBC (Bld) [Ratio]0 %Normal0-0The [facility] HospitalComment on above:Order Comment: No: Do not add to previous drawPerformed By: #### [id number] #### [facility] [address] [place] [id number], USAPLAT VYA590 10*3/wOObtyqk001-549Mjq St[facility] HospitalComment on above:Order Comment: No: Do not add to previous draw Performed By: #### [id number] #### [facility] [address] [place] [id number], [facility] PSYCHIATR[facility] CENTERRBC (Bld) [#/Vol]3.56 10*6/uLLow4.20-5.70The St[facility] Charles HospitalComment on above:Order Comment: No: Do not add to previous drawPerformed By: #### 92713 #### [facility] [address] [place] [address], [facility] PSYCHIATR[facility] CENTERWBC (Bld) [#/Vol]8.61 10*3/uLNormal4.00-10.60The [facility] HospitalComment on above:Order Comment: No: Do not add to previous drawPerformed By: #### [id number] #### [facility] [address] [place] [address], USACOMP METABOLIC PANELon 13-86-2597Rlmoeij [Mass/Vol]2.7 g/dL Low3.5-5.7The St. Charles HospitalComment on above:Order Comment: No: Do not add to previous drawPerformed By: #### 58645 #### [facility] [address] [place] [address], USAALKALINE OPZARW79 IU/UNdnvne67-423Pzt St. [facility] HospitalComment on above:Order Comment: No: Do not add to previous draw Performed By: #### 97796 #### [facility] [address] [place] [address], USAALT [Catalytic activity/Vol]4 U/LLow7-52The St. [facility] HospitalComment on above:Order Comment: No: Do not add to previous drawPerformed By: #### 51679 #### [facility] [address] [place] [address], USAAST [Catalytic activity/Vol]15 U/CAavoof68-81Xgu [facility] HospitalComment on above:Order Comment: No: Do not add to previous drawPerformed By: #### [id number] #### [facility] [address] [place] [address], USABilirubin [Mass/Vol]0.2 mg/dLLow0.3-1.0The [facility] HospitalComment on above:Order Comment: No: Do not add to previous drawPerformed By: #### 08987 #### [facility] [address] [place] [address], USACalcium [Mass/Vol]8.9 mg/dLNormal8.6-10.3The [facility] HospitalComment on above:Order Comment: No: Do not add to previous drawPerformed By: #### 89084 #### [facility] [address] [place] [address], USAChloride [Moles/Vol]109 mmol/CMcas63-929Uxl [facility] HospitalComment on above:Order Comment: No: Do not add to previous drawPerformed By: #### 68792 #### [facility] [address] [place] [address], USACO2 [Moles/Vol]24 mmol/HQwopkk41-47Qut [facility] HospitalComment on above:Order Comment: No: Do not add to previous draw Performed By: #### 60616 #### [facility] [address] [place] [address], USACreatinine [Mass/Vol]3.39 mg/dLHigh0.70-1.30The [facility] HospitalComment on above:Order Comment: No: Do not add to previous drawPerformed By: #### 77794 #### [facility] [address] [place] [address], USAeGFR- Cjhkntzg45 ml/min/1.73sq mAbnormal>60The St. [facility] HospitalComment on above:Order Comment: No: Do not add to previous drawPerformed By: #### 05369 #### [facility] [address] [place] [address], USAeGFR- non- Dyolvjqc77 ml/min/1.73sq mAbnormal>60The [facility] HospitalComment on above:Order Comment: No: Do not add to previous drawPerformed By: #### 39972 #### [facility] [address] [place] [address], USAGlucose [Mass/Vol]90 mg/pUDjyirr44-535Qkk [facility] HospitalComment on above:Order Comment: No: Do not add to previous drawPerformed By: #### 06250 #### [facility] [address] [place] [address], USAPotassium [Moles/Vol]4.4 mmol/LNormal3.5-5.1The [facility] HospitalComment on above:Order Comment: No: Do not add to previous drawPerformed By: #### 25108 #### [facility] [address] [place] [address], USAProtein [Mass/Vol]5.9 g/dLLow6.0-8.3The [facility] HospitalComment on above:Order Comment: No: Do not add to previous drawPerformed By: #### 09981 #### [facility] [address] [place] [address], USASodium [Moles/Vol]140 mmol/MUgfoso297-290Ynk [facility] HospitalComment on above:Order Comment: No: Do not add to previous drawPerformed By: #### 06748 #### [facility] [address] [facility] [address], USAUrea nitrogen [Mass/Vol]35 mg/dLHigh7-25The St. [facility] HospitalComment on above:Order Comment: No: Do not add to previous drawPerformed By: #### 40140 #### [facility] [address] [facility] [place] [address], USAPOC GLUCOSE LABon 30-79-7763Mbquiaq [Mass/Vol]192 mg/dLHigh 70-100The St. [facility] HospitalComment on above:Performed By: #### 86778 #### [facility] [address] [place] [address], USAGlucose [Mass/Vol]95 mg/bGZevsze55-996Pbk [facility] HospitalComment on above:Performed By: #### 12405, 63361 #### [facility] [address] [place] [address], USAGlucose [Mass/Vol]123 mg/lJJati77-840Fks [facility] HospitalComment on above:Performed By: #### 68714 ####[facility] [place] [address], USAARTERIAL BLOOD GAS WITH ICAon 26-22-4598QGIV EXCESS-2 mmol/GWwtelf-6-2Rfn [facility] HospitalComment on above:Performed By: #### 38968 #### [facility] [address] [place] [address], USADELIVERY SYSTEMSFOCUSNormalThe St. Charles HospitalComment on above:Performed By: #### 84666 #### [facility] [address] [place] [address], USAHCO3 (Bld) [Moles/Vol]24 mmol/UGeibyd49-15Oxn St. [facility] HospitalComment on above:Performed By: #### 90028 #### [facility] [address] [place] [address], USAIONIZED CALCIUM1.25 mmol/LNormal1.13-1.32The [facility] HospitalComment on above:Performed By: #### 68624 #### [facility] [address] [place] [address], USALPM4.[address] [facility] Comment on above:Performed By: #### 08176 #### [facility] [address] [place] [address], USAMODALITYBIPAPNormalThe St. [facility] Comment on above:Performed By: #### 99342 #### [facility] [address] [place] [address], USAOxygen (Bld) [Partial pressure]91 mm[Hg]Dusvoz92-654Zas [facility] HospitalComment on above:Performed By: #### 08718 #### [facility] [address] [place] [address], USAOxygen saturation in Blood95.9 %Pdescl37.0-97.0The [facility] HospitalComment on above:Performed By: #### 82039 #### [facility] [address] [place] [address], KROVCO399 wpTkLajz33-25Tzi [facility] Comment on above:Performed By: #### 80840 #### [facility] [address] [place] [address], USAPEEP8.0 JUN33HqfsyxWvoOur Lady of Mercy Hospital Comment on above:Performed By: #### 18799 #### [facility] [address] [place] [address], USApH (Bld)7.32 [pH]Low7.35-7.45The St. [facility] HospitalComment on above:Performed By: #### 71842 #### [facility] [address] [place] [address], USAPRESSURE GGKGYJF32GausdoGjeOur Lady of Mercy HospitalComment on above:Performed By: #### 79206 #### [facility] [address] [place] [address], USABASE EXCESS-3 mmol/LLow-2-3The [facility] HospitalComment on above:Performed By: #### 00750 #### [facility] [address] [place] [address], USADELIVERY SYSTEMSNASAL CANNULANoOur Lady of Mercy HospitalComment on above:Performed By: #### 71664 #### [facility] [address] [place] [address], USAHCO3 (Bld) [Moles/Vol]25 mmol/IXkdtvl25-80Pks [facility] HospitalComment on above:Performed By: #### 55005 #### [facility] [address] [place] [address], USAIONIZED CALCIUM1.26 mmol/LNormal1.13-1.32The [facility] HospitalComment on above:Performed By: #### 86145 #### [facility] [address] [place] [address], USALPM2.[address] [facility] Comment on above:Performed By: #### 27985 #### [facility] [address] [place] [address], USAOxygen (Bld) [Partial pressure]92 mm[Hg]Szudrt78-415Iwc [facility] HospitalComment on above:Performed By: #### 43479 #### [facility] [address] [place] [address], USAOxygen saturation in Blood95.7 %Cbdpbg30.0-97.0The [facility] HospitalComment on above:Performed By: #### 73003 #### [facility] [address] [place] [address], QXZNXH896 pnIvDbta24-61Dcn [facility] Comment on above:Performed By: #### 58059 #### [facility] [address] [place] [address], USApH (Bld)7.27 [pH]Low7.35-7.45The [facility] HospitalComment on above:Performed By: #### 26301 #### [facility] [address] [place] [address], USABASIC METABOLIC PANELon 11-70-8611Jsroaro [Mass/Vol]9.0 mg/dLNormal8.6-10.3The [facility] HospitalComment on above:Order Comment: No: Do not add to previous drawPt not in room rn will return when back.Performed By: #### 62542 #### [facility] [address] [place] [address], USAChloride [Moles/Vol]106 mmol/GEmiavt91-087Hqp [facility] HospitalComment on above:Order Comment: No: Do not add to previous drawPt not in room rn will return when back.Performed By: #### 86223 #### [facility] [address] [place] [address], USACO2 [Moles/Vol]25 mmol/JRalnxy06-38Rvf [facility] HospitalComment on above:Order Comment: No: Do not add to previous drawPt not in room rn will return when back.Performed By: #### 14229 #### [facility] [address] [place] [address], USACreatinine [Mass/Vol]3.75 mg/dLHigh0.70-1.30The [facility] HospitalComment on above:Order Comment: No: Do not add to previous drawPt not in room rn will return when back.Performed By: #### 17300 #### [facility] [address] [place] [address], USAeGFR- Katjshlj96 ml/min/1.73sq mAbnormal>60The [facility] HospitalComment on above:Order Comment: No: Do not add to previous drawPt not in room rn will return when back.Performed By: #### 25275 #### [facility] [address] [place] [address], USAeGFR- non- Umnjpsol68 ml/min/1.73sq mAbnormal>60The [facility] HospitalComment on above:Order Comment: No: Do not add to previous drawPt not in room rn will return when back.Performed By: #### 42670 #### [facility] [address] [place] [address], USAGlucose [Mass/Vol]132 mg/mBElxv37-340Boq [facility] HospitalComment on above:Order Comment: No: Do not add to previous drawPt not in room rn will return when back.Performed By: #### 60551 #### [facility] [address] [place] [address], USAPotassium [Moles/Vol]5.0 mmol/LNormal3.5-5.1The [facility] HospitalComment on above:Order Comment: No: Do not add to previous drawPt not in room rn will return when back.Performed By: #### 55873 #### [facility] [address] [place] [address], [facility]AT[facility] CENTERSodium [Moles/Vol]138 mmol/YKsxezn875-596Ltx [facility] HospitalComment on above:Order Comment: No: Do not add to previous drawPt not in room rn will return when back.Performed By: #### 18443 #### [facility] [address] [facility] [place] [address], USAUrea nitrogen [Mass/Vol]37 mg/dLHigh7-25The [facility] HospitalComment on above:Order Comment: No: Do not add to previous drawPt not in room rn will return when back.Performed By: #### 14407 #### [facility] [address] [facility] [place] [address], [facility] CENTERCB COMPLETE BLOOD COUNTon 00-26-0776Wtjkclygjdd distribution width (RBC) [Ratio]15.0 %Yyqnzo69.5-15.0The [facility] HospitalComment on above:Order Comment: No: Do not add to previous drawPt not in room rn will return when back.Performed By: #### 88365 #### [facility] [address] [facility] [place] [address], USAHematocrit (Bld) [Volume fraction]33.9 %Low39.0-50.0The [facility] HospitalComment on above:Order Comment: No: Do not add to previous drawPt not in room rn will return when back.Performed By: #### 54471 #### [facility] [address] [facility] [place] [address], USAHemoglobin (Bld) [Mass/Vol]9.9 g/dLLow13.0-17.0The [facility] HospitalComment on above:Order Comment: No: Do not add to previous drawPt not in room rn will return when back.Performed By: #### 72075 #### [facility] [address] [facility] [place] [address], [facility] (RBC) [Entitic mass]26.9 pgLow27.0-33.0The [facility] HospitalComment on above:Order Comment: No: Do not add to previous drawPt not in room rn will return when back.Performed By: #### 05422 #### [facility] [address] [place] [id number], [facility] (RBC) [Mass/Vol]29.2 g/dLLow32.0-35.0The [facility] HospitalComment on above:Order Comment: No: Do not add to previous drawPt not in room rn will return when back.Performed By: #### 97698 #### [facility] [address] [place] [address], [facility] (RBC) [Entitic vol]92.1 oZFacbsk77.0-98.0The [facility] HospitalComment on above:Order Comment: No: Do not add to previous drawPt not in room rn will return when back.Performed By: #### 35668 #### [facility] [address] [place] [address], [facility] PSYCHIATRIC CENTERNucleated RBC/100 WBC (Bld) [Ratio]0 %Normal0-0The [facility] HospitalComment on above:Order Comment: No: Do not add to previous drawPt not in room rn will return when back.Performed By: #### 37805 #### [facility] [address] [facility] [place] [address], [facility] PSYCHIATRIC CENTERPLAT XOK528 10*3/fMLhywoz949-016Zaj [facility] HospitalComment on above:Order Comment: No: Do not add to previous drawPt not in room rn will return when back.Performed By: #### 92147 #### [facility] [address] [place] [address], USARBC (Bld) [#/Vol]3.68 10*6/uLLow4.20-5.70The [facility] HospitalComment on above:Order Comment: No: Do not add to previous drawPt not in room rn will return when back.Performed By: #### 46135 #### [address] [address], USAWBC (Bld) [#/Vol]9.51 10*3/uLNormal4.00-10.60The [facility] HospitalComment on above:Order Comment: No: Do not add to previous drawPt not in room rn will return when back.Performed By: #### 04286 #### [address] [address], USACT CHEST WO CONTRASTon 61-93-9147FF CHEST WO CONTRAST [facility] Department of Radiology [address] [place] [id number] Patient Name: RASHARD LYMAN : 1960 Sex: M Age: Race: White Pt. Location: [address] [place] [address] Patient Status: I Ordered Date: 07/21/2020 6:00:00 [...] pneumonia. Electronically signed: Manuel Saldaña. Transcribed by: [email or web address], User Resident: Electronically Signed by: MANUEL SALDAÑA @ 07/21/2020 08:[address] Charles HospitalComment on above:Order Comment: Left Peural EffusionPOC GLUCOSE LABon 99-93-5513Bovfelr [Mass/Vol]134 mg/yTYhfk62-867Etq [facility] HospitalComment on above:Performed By: #### 74995 #### [place] [address], [facility] CENTERGlucose [Mass/Vol]88 mg/uMJtkdeg48-922Loo [facility] HospitalComment on above:Performed By: #### 48040 #### [facility] [address] [place] [address], USAGlucose [Mass/Vol]110 mg/cEXfdm64-901Suu [facility] HospitalComment on above:Performed By: #### 83880 #### [facility] [address] [place] [address], USAGlucose [Mass/Vol]118 mg/hVIiaq30-136Nau [facility] HospitalComment on above:Performed By: #### 68701, 50893 #### [facility] [address] [place] [address], USAGlucose [Mass/Vol]137 mg/eEPdrn89-741Bhv [facility] HospitalComment on above:Performed By: #### 47241, 36016 #### [facility] [address] [place] [address], USABASIC METABOLIC PANELon 07-35-4025Qaalkfb [Mass/Vol]8.4 mg/dLLow8.6-10.3The [facility] HospitalComment on above:Order Comment: No: Do not add to previous drawPerformed By: #### 27417 #### [facility] [address] [place] [address], USAChloride [Moles/Vol]107 mmol/AVembgj13-903Uqs [facility] HospitalComment on above:Order Comment: No: Do not add to previous drawPerformed By: #### 95629 #### [facility] [address] [place] [address], USACO2 [Moles/Vol]23 mmol/SKgxzbe26-58Jhc [facility] HospitalComment on above:Order Comment: No: Do not add to previous draw Performed By: #### 93848 #### [facility] [address] [place] [address], USACreatinine [Mass/Vol]3.95 mg/dLHigh0.70-1.30The [facility] HospitalComment on above:Order Comment: No: Do not add to previous drawPerformed By: #### 40368 #### [facility] [address] [place] [address], USAeGFR- Tusgqoim10 ml/min/1.73sq mAbnormal>60The [facility] HospitalComment on above:Order Comment: No: Do not add to previous drawPerformed By: #### 37172 #### [facility] [address] [place] [address], USAeGFR- non- Ewrkmvyi74 ml/min/1.73sq mAbnormal>60The [facility] HospitalComment on above:Order Comment: No: Do not add to previous drawPerformed By: #### 52610 #### [facility] [address] [place] [address], USAGlucose [Mass/Vol]110 mg/jJQfnr08-127Fvk [facility] HospitalComment on above:Order Comment: No: Do not add to previous drawPerformed By: #### 40921 #### [facility] [address] [place] [address], USAPotassium [Moles/Vol]4.9 mmol/LNormal3.5-5.1The [facility] HospitalComment on above:Order Comment: No: Do not add to previous drawPerformed By: #### 95072 #### [facility] [address] [place] [address], USASodium [Moles/Vol]137 mmol/GNmprjv638-789Dxq [facility] HospitalComment on above:Order Comment: No: Do not add to previous drawPerformed By: #### 29625 #### [facility] [address] [place] [address], USAUrea nitrogen [Mass/Vol]37 mg/dLHigh7-25The [facility] HospitalComment on above:Order Comment: No: Do not add to previous drawPerformed By: #### 99820 #### [facility] [address] [facility] [place] [address], [facility] CENTERCB W/DIFFon 91-52-3122IBL IMM GRANS0.1 10*3/uLNormal 0.0-0.2The [facility] HospitalComment on above:Order Comment: No: Do not add to previous drawPerformed By: #### 45729 #### [facility] [address] [place] [address], USAABS NEUTROPHILS5.9 10*3/uLNormal1.6-7.6The [facility] HospitalComment on above:Order Comment: No: Do not add to previous drawPerformed By: #### 64419 #### [facility] [address] [facility] [place] [address], USABasophils (Bld) [#/Vol]0.1 10*3/uLNormal0.0-0.2The [facility] HospitalComment on above:Order Comment: No: Do not add to previous drawPerformed By: #### 65162 #### [facility] [address] [facility] [place] [address], USABasophils/100 WBC (Bld)1.0 %Normal0.0-1.0The [facility] HospitalComment on above:Order Comment: No: Do not add to previous drawPerformed By: #### 75571 #### [facility] [address] [facility] [place] [address], USAEosinophils (Bld) [#/Vol]0.4 10*3/uLNormal0.0-0.5The [facility] HospitalComment on above:Order Comment: No: Do not add to previous drawPerformed By: #### 44363 #### [facility] [address] [facility] [place] [address], USAEosinophils/100 WBC (Bld)5.1 %Normal0.0-6.0The [facility] HospitalComment on above:Order Comment: No: Do not add to previous drawPerformed By: #### 89490 #### [facility] [address] [facility] [place] [address], USAErythrocyte distribution width (RBC) [Ratio]15.4 %High 11.5-15.0The [facility] HospitalComment on above:Order Comment: No: Do not add to previous drawPerformed By: #### 34489 #### [facility] [address] [facility] [place] [address], USAHematocrit (Bld) [Volume fraction]35.7 %Low39.0-50.0The [facility] HospitalComment on above:Order Comment: No: Do not add to previous drawPerformed By: #### 95770 #### [facility] [address] [facility] [place] [address], USAHemoglobin (Bld) [Mass/Vol]10.3 g/dLLow13.0-17.0The [facility] HospitalComment on above:Order Comment: No: Do not add to previous drawPerformed By: #### 58110 #### [facility] [address] [facility] [place] [address], USAIMM PLATELET FRAC0.4 %Low0.8-6.3The [facility] HospitalComment on above:Order Comment: No: Do not add to previous draw Performed By: #### 64740 #### [facility] [address] [facility] [place] [address], USAIMMATURE GRANS1.1 %High0.0-1.0The [facility] HospitalComment on above:Order Comment: No: Do not add to previous draw Performed By: #### 79377 #### [facility] [address] [place] [address], USALymphocytes (Bld) [#/Vol]0.8 10*3/uLLow1.2-4.0The [facility] HospitalComment on above:Order Comment: No: Do not add to previous drawPerformed By: #### 40695 #### [facility] [address] [address], USALymphocytes/100 WBC (Bld)9.3 %Low20.0-45.0The [facility] Charles HospitalComment on above:Order Comment: No: Do not add to previous drawPerformed By: #### [id number] #### [facility] [address] [address], [facility] [Entitic mass]27.[address]kyph21.0-33[address] Charles HospitalComment on above:Order Comment: No: Do not add to previous drawPerformed By: #### [id number] #### [facility] [address] [place] [id number], [facility] ([facility]BC) [Mass/Vol]28.9 g/dLLow32.0-35.0The [facility] Charles HospitalComment on above:Order Comment: No: Do not add to previous drawPerformed By: #### [id number] #### [facility] [address] [place] [address], [facility] ([place] [Entitic vol]94.9 bSOpkmze17.0-98.0The St. Charles HospitalComment on above:Order Comment: No: Do not add to previous drawPerformed By: #### 81011 #### [facility] [address] [place] [address], USAMonocytes (Bld) [#/Vol]1.1 10*3/uLHigh0.1-1.0The St. Charles HospitalComment on above:Order Comment: No: Do not add to previous drawPerformed By: #### 74231 #### [facility] [address] [place] [address], YUNCGKAD67.9 %High5.0-12.0The St. Charles HospitalComment on above:Order Comment: No: Do not add to previous drawPerformed By: #### 77438 #### [facility] [address] [place] [address], USANeutrophils/100 WBC (Bld)70.6 %Sarmkb43.0-72.0The St. Charles HospitalComment on above:Order Comment: No: Do not add to previous drawPerformed By: #### 94500 #### [facility] [address] [place] [address], USANucleated RBC/100 WBC (Bld) [Ratio]0 %Normal0-0The St. Charles HospitalComment on above:Order Comment: No: Do not add to previous drawPerformed By: #### [id number] #### [facility] [address] [facility] [address], USAPLAT ESTIMATENormalNormalThe St. Charles HospitalComment on above:Order Comment: No: Do not add to previous drawResult Comment: EDTA smear shows platelet clumping, see platelet estimatePerformed By: #### 55355 #### [facility] [address] [address], USARBC (Bld) [#/Vol]3.76 10*6/uLLow4.20-5.70The St. Charles HospitalComment on above:Order Comment: No: Do not add to previous drawPerformed By: #### 75865 #### [facility] [address] [place] [address], USAWBC (Bld) [#/Vol]8.30 10*3/uLNormal4.00-10.60The [facility] HospitalComment on above:Order Comment: No: Do not add to previous drawPerformed By: #### 11530 #### [facility] [address] [facility] [place] [address], USAPOC GLUCOSE LABon 23-04-4476Uzzvpop [Mass/Vol]110 mg/dLHigh 70-100The St. Charles HospitalComment on above:Performed By: #### 05477 #### [facility] [address] [facility] [address], USAGlucose [Mass/Vol]124 mg/vLMull55-004Dep St. Charles HospitalComment on above:Performed By: #### 68315 #### [facility] [address] [facility] [place] [address], USAGlucose [Mass/Vol]111 mg/qWLgsv92-335Idx St. Charles HospitalComment on above:Performed By: #### 57124, 37288 #### [facility] [address] [facility] [place] [address], USAPORTABLE CHEST 1 VIEWon [id number] CHEST [address] [facility] Department of Radiology [address] [place] [id number] Patient Name: RASHARD LYMAN : 1960 Sex: M Age: Race: White Pt. Location: [address] [place] [address] Patient Status: I Ordered Date: 07/20/2020 6:00:00 [...] unchanged Electronically signed: Manuel Saldaña. Transcribed by: [email or web address], User Resident: Electronically Signed by: MANUEL SALDAÑA @ 07/20/2020 09:[address] Charles HospitalComment on above:Order Comment: Evaluate for EffusionBASIC METABOLIC PANELon 10-60-4800Hnxatrh [Mass/Vol]8.4 mg/dLLow8.6-10.[address] Charles HospitalComment on above:Order Comment: No: Do not add to previous drawPerformed By: #### 26834 #### [facility] [address] [place] [address], USAChloride [Moles/Vol]104 mmol/KYhxhlp71-559Yrx [facility] HospitalComment on above:Order Comment: No: Do not add to previous drawPerformed By: #### 09023 #### [facility] [address] [place] [address], USACO2 [Moles/Vol]24 mmol/OEyhjlx03-66Wlj St. Charles HospitalComment on above:Order Comment: No: Do not add to previous draw Performed By: #### 49118 #### [facility] [address] [place] [address], USACreatinine [Mass/Vol]4.15 mg/dLHigh0.70-1.30The [facility] HospitalComment on above:Order Comment: No: Do not add to previous drawPerformed By: #### 02361 #### [facility] [address] [place] [address], USAeGFR- Pyawxqiy40 ml/min/1.73sq mAbnormal>60The St. [facility] HospitalComment on above:Order Comment: No: Do not add to previous drawPerformed By: #### 02289 #### [facility] [address] [place] [address], USAeGFR- non- Mcsmfbif96 ml/min/1.73sq mAbnormal>60The St. [facility] HospitalComment on above:Order Comment: No: Do not add to previous drawPerformed By: #### 06557 #### [facility] [address] [place] [address], USAGlucose [Mass/Vol]180 mg/zETxdw54-601Yqc [facility] HospitalComment on above:Order Comment: No: Do not add to previous drawPerformed By: #### 77769 #### [facility] [address] [place] [address], USAPotassium [Moles/Vol]4.4 mmol/LNormal3.5-5.1The [facility] HospitalComment on above:Order Comment: No: Do not add to previous drawPerformed By: #### 25784 #### [facility] [address] [place] [address], USASodium [Moles/Vol]135 mmol/ERum580-840Mus [facility]. [facility] HospitalComment on above:Order Comment: No: Do not add to previous drawPerformed By: #### 88105 #### [facility] [address] [place] [address], USAUrea nitrogen [Mass/Vol]37 mg/dLHigh7-25The St. [facility] HospitalComment on above:Order Comment: No: Do not add to previous drawPerformed By: #### 78397 #### [facility] [address] [place] [address], USACBC COMPLETE BLOOD COUNTon 11-48-2494Gfetqejbvur distribution width (RBC) [Ratio]14.8 %Aizrdi15.5-15.0The [facility]. [facility] HospitalComment on above:Order Comment: No: Do not add to previous draw Performed By: #### 98487 #### [facility] [address] [place] [address], USAHematocrit (Bld) [Volume fraction]30.9 %Low39.0-50.0The [facility] HospitalComment on above:Order Comment: No: Do not add to previous drawPerformed By: #### 72661 #### [facility] [address] [facility] [place] [address], USAHemoglobin (Bld) [Mass/Vol]9.0 g/dLLow13.0-17.0The St[facility] HospitalComment on above:Order Comment: No: Do not add to previous drawPerformed By: #### 88576 #### [facility] [address] [place] [address], [facility]ENTERMCH (RBC) [Entitic mass]26.6 pgLow27.0-33.0The St. [facility] HospitalComment on above:Order Comment: No: Do not add to previous drawPerformed By: #### 80818 #### [facility] [address] [place] [address], [facility] CENTERMCHC (RBC) [Mass/Vol]29.1 g/dLLow32.0-35.0The [facility] HospitalComment on above:Order Comment: No: Do not add to previous drawPerformed By: #### 55208 #### [facility] [address] [address], USAMCV (RBC) [Entitic vol]91.4 iFOcvxkk46.0-98.0The [facility] HospitalComment on above:Order Comment: No: Do not add to previous drawPerformed By: #### 23750 #### [facility] [address] [address], USANucleated RBC/100 WBC (Bld) [Ratio]0 %Normal0-0The [facility]. [facility] HospitalComment on above:Order Comment: No: Do not add to previous drawPerformed By: #### 41148 #### [facility] [address] [address], USAPLAT TGS420 10*3/cHQvxbdk999-951Lue St[facility] HospitalComment on above:Order Comment: No: Do not add to previous draw Performed By: #### 32196 #### [facility] [address] [address], USARBC (Bld) [#/Vol]3.38 10*6/uLLow4.20-5.70The [facility] HospitalComment on above:Order Comment: No: Do not add to previous drawPerformed By: #### 11031 #### [facility] [address] [address], USAWBC (Bld) [#/Vol]6.73 10*3/uLNormal4.00-10.60The [facility] HospitalComment on above:Order Comment: No: Do not add to previous drawPerformed By: #### 22139 #### [facility] [address] [address], USAOperative Reporton [id number] ReportMR#: [id number] [facility] #: [id number] Discharge Date: Birthdate: 1960 OPERATIVE REPORT DATE OF SURGERY: 07/19/2020 SURGEON: Nima Wynne MD Operative Note Medical Thoracoscopy, lysis of adhesions, pleural biopsy Procedure Date: 07/19/2020 Procedure: Medical Thoracoscopy, pleural biopsies, lysis of adhesions, and chest tube placement Preoperative Diagnosis: Loculated pleural effusion Post-operative Diagnosis: same Surgeons: Nima Wynne MD Adjuster And Inspector: Davis Pham MD Type of Anesthesia: MAC [...] Wynne MD Date Trans: 07/19/2020 02:43 P/ DN_JN:[id number] cc: Jose Juarez D.O. [address] [place] [address] [place] [address]RbhjfxFmhSelect Medical Specialty [facility] GLUCOSE LABon [id number] [Mass/Vol]219 mg/nGHocj07-321Xbd [facility]. [facility] HospitalComment on above:Performed By: #### 36830, 81369 #### [facility] [address] [place] [address], USAGlucose [Mass/Vol]152 mg/kBJhqq59-144Uig [facility] HospitalComment on above:Performed By: #### 45505, 65698 #### [facility] [address] [place] [address], USAGlucose [Mass/Vol]183 mg/sSQnid65-303Hfh [facility] HospitalComment on above:Performed By: #### 24038 #### [facility] [address] [place] [address], USAGlucose [Mass/Vol]206 mg/sHRxfg20-342Ufh [facility] HospitalComment on above:Performed By: #### 81178 ####[facility] [place] [address], USAGlucose [Mass/Vol] 179 mg/nAQdsk53-838Wil St. Charles HospitalComment on above: Performed By: #### 31358 #### [address] [place] [address], USAPORTABLE CHEST 1 VIEWon [id number] CHEST [address] [facility] Department of Radiology [address] [place] [address] [place] [id number] Patient Name: RASHARD LYMAN : 1960 Sex: M Age: Race: White Pt. Location: [address] [place] [address] Patient Status: I Ordered Date: 07/19/2020 2:20:00 [...] infiltration Electronically signed: Pedro Baldwin. Transcribed by: [id number], User Resident: TAREK MOUSTAFA Electronically Signed by: PEDRO BALDWIN @ 07/19/2020 03:03 PM I personally read this/these film(s) with this [facility] HospitalComment on above:Order Comment: Check Chest Tube Position BASIC METABOLIC PANELon 73-87-1076Ftixldj [Mass/Vol]8.4 mg/dLLow8.6-10.3The St[facility] HospitalComment on above:Order Comment: No: Do not add to previous drawPerformed By: #### 07005 #### [facility] [address] [place] [address], USAChloride [Moles/Vol]105 mmol/IEyhsfi99-154Rdt [facility] HospitalComment on above:Order Comment: No: Do not add to previous drawPerformed By: #### 11442 #### [facility] [address] [place] [address], USACO2 [Moles/Vol]25 mmol/AHcuyyn62-03Pgu [facility] HospitalComment on above:Order Comment: No: Do not add to previous draw Performed By: #### 47694 #### [facility] [address] [place] [address], USACreatinine [Mass/Vol]4.54 mg/dLHigh0.70-1.30The [facility] HospitalComment on above:Order Comment: No: Do not add to previous drawPerformed By: #### 09096 #### [facility] [address] [facility] [place] [address], USAeGFR- Xmpdruka27 ml/min/1.73sq mAbnormal>60The St. Charles HospitalComment on above:Order Comment: No: Do not add to previous drawPerformed By: #### 31737 #### [facility] [address] [place] [address], USAeGFR- non- Gcbfemix13 ml/min/1.73sq mAbnormal>60The [facility] HospitalComment on above:Order Comment: No: Do not add to previous drawPerformed By: #### 28205 #### [facility] [address] [place] [address], USAGlucose [Mass/Vol]118 mg/lTPubp56-439Yes [facility]. [facility] HospitalComment on above:Order Comment: No: Do not add to previous drawPerformed By: #### 40002 #### [facility] [address] [place] [address], USAPotassium [Moles/Vol]4.5 mmol/LNormal3.5-5.1The [facility] HospitalComment on above:Order Comment: No: Do not add to previous drawPerformed By: #### 39592 #### [facility] [address] [place] [id number], USASodium [Moles/Vol]137 mmol/BClykvc979-237Nwc [facility]. [facility] HospitalComment on above:Order Comment: No: Do not add to previous drawPerformed By: #### 45235 #### [facility] [address] [address], USAUrea nitrogen [Mass/Vol]40 mg/dLHigh7-25The [facility] HospitalComment on above:Order Comment: No: Do not add to previous drawPerformed By: #### 27281 #### [facility] [address] [facility] [place] [address], [facility] PSYCHIATRIC CENTERCBC W/DIFFon 60-94-8919BVU IMM GRANS0.1 10*3/uLNormal 0.0-0.2The St. Charles HospitalComment on above:Order Comment: No: Do not add to previous drawPerformed By: #### 21239 #### [facility] [address] [place] [address], USAABS NEUTROPHILS5.0 10*3/uLNormal1.6-7.6The [facility] HospitalComment on above:Order Comment: No: Do not add to previous drawPerformed By: #### 47935 #### [facility] [address] [place] [address], USABasophils (Bld) [#/Vol]0.0 10*3/uLNormal0.0-0.2The [facility] HospitalComment on above:Order Comment: No: Do not add to previous drawPerformed By: #### 69622 #### [facility] [address] [place] [address], USABasophils/100 WBC (Bld)0.4 %Normal0.0-1.0The [facility] HospitalComment on above:Order Comment: No: Do not add to previous drawPerformed By: #### 96428 #### [facility] [address] [place] [address], USAEosinophils (Bld) [#/Vol]0.6 10*3/uLHigh0.0-0.5The [facility] HospitalComment on above:Order Comment: No: Do not add to previous drawPerformed By: #### 59622 #### [facility] [address] [place] [address], USAEosinophils/100 WBC (Bld)6.8 %High0.0-6.0The [facility] HospitalComment on above:Order Comment: No: Do not add to previous drawPerformed By: #### 63233 #### [facility] [address] [place] [address], USAErythrocyte distribution width (RBC) [Ratio]14.8 %Normal 11.5-15.0The [facility] HospitalComment on above:Order Comment: No: Do not add to previous drawPerformed By: #### 06187 #### [facility] [address] [place] [address], USAHematocrit (Bld) [Volume fraction]31.9 %Low39.0-50.0The [facility] HospitalComment on above:Order Comment: No: Do not add to previous drawPerformed By: #### 62076 #### [facility] [address] [place] [address], USAHemoglobin (Bld) [Mass/Vol]9.4 g/dLLow13.0-17.0The [facility] HospitalComment on above:Order Comment: No: Do not add to previous drawPerformed By: #### 21659 #### [facility] [address] [place] [address], USAIMMATURE GRANS1.7 %High0.0-1.0The [facility] HospitalComment on above:Order Comment: No: Do not add to previous draw Performed By: #### 78249 #### [facility] [address] [place] [address], USALymphocytes (Bld) [#/Vol]1.2 10*3/uLNormal1.2-4.0The [facility] HospitalComment on above:Order Comment: No: Do not add to previous drawPerformed By: #### 75316 #### [facility] [address] [place] [address], USALymphocytes/100 WBC (Bld)14.8 %Low20.0-45.0The [facility] HospitalComment on above:Order Comment: No: Do not add to previous drawPerformed By: #### 10653 #### [facility] [address] [place] [address], [facility] CENTERMCH (RBC) [Entitic mass]26.9 pgLow27.0-33.0The [facility] HospitalComment on above:Order Comment: No: Do not add to previous drawPerformed By: #### 83760 #### [facility] [address] [place] [address], USAMCHC (RBC) [Mass/Vol]29.5 g/dLLow32.0-35.0The [facility] HospitalComment on above:Order Comment: No: Do not add to previous drawPerformed By: #### 10320 #### [facility] [address] [place] [address], [facility] PSY[facility]IATRIC CENTERMCV (RBC) [Entitic vol]91.[address] zNDhidlz15.0-98.0The [facility] HospitalComment on above:Order Comment: No: Do not add to previous drawPerformed By: #### 27880 #### [facility] [address] [place] [address], USAMonocytes (Bld) [#/Vol]1.1 10*3/uLHigh0.1-1.0The [facility] HospitalComment on above:Order Comment: No: Do not add to previous drawPerformed By: #### 77922 #### [facility] [address] [place] [address], ZTCQFOZT79.4 %High5.0-12.0The [facility] HospitalComment on above:Order Comment: No: Do not add to previous drawPerformed By: #### 39344 #### [facility] [address] [place] [address], USANeutrophils/100 WBC (Bld)62.9 %Cfqajc57.0-72.0The [facility] HospitalComment on above:Order Comment: No: Do not add to previous drawPerformed By: #### 75533 #### [facility] [address] [place] [address], USANucleated RBC/100 WBC (Bld) [Ratio]0 %Normal0-0The [facility] HospitalComment on above:Order Comment: No: Do not add to previous drawPerformed By: #### 22740 #### [facility] [address] [place] [address], USAPLAT GBJ083 10*3/sEUlushg383-219Xld [facility] HospitalComment on above:Order Comment: No: Do not add to previous draw Performed By: #### 07897 #### [facility] [address] [place] [address], USARBC (Bld) [#/Vol]3.50 10*6/uLLow4.20-5.70The [facility] HospitalComment on above:Order Comment: No: Do not add to previous drawPerformed By: #### 38304 #### [facility] [address] [place] [address], USAWBC (Bld) [#/Vol]8.03 10*3/uLNormal4.00-10.60The [facility] HospitalComment on above:Order Comment: No: Do not add to previous drawPerformed By: #### 45017 #### [facility] [address] [place] [address], USAPOC GLUCOSE LABon 54-77-4395Naagxcc [Mass/Vol]192 mg/dLHigh 70-100The [facility]. [facility] HospitalComment on above:Performed By: #### 81999, 55055 #### [facility] [address] [place] [address], USAGlucose [Mass/Vol]153 mg/oIDfrm11-146Ers [facility] HospitalComment on above:Performed By: #### 96284, 92703 #### [facility] [address] [place] [address], USAGlucose [Mass/Vol]80 mg/rDKjxdvm53-841Qop [facility] HospitalComment on above:Performed By: #### 11131, 67107 #### [facility] [address] [place] [address], USAGlucose [Mass/Vol]48 mg/dLCritically iro14-197Hbn [facility] HospitalComment on above:Order Comment: Left Peural EffusionPerformed By: #### 25024 ####[facility] [place] [address], USAGlucose [Mass/Vol]120 mg/gTGbbg48-453Knd [facility] HospitalComment on above:Performed By: #### 19981 #### [facility] [address] [place] [address], USAGlucose [Mass/Vol]112 mg/yDEvbx99-631Jxh [facility] HospitalComment on above:Performed By: #### 12011, 97660 #### [facility] [address] [facility] [facility] [place] [address], [facility] CENTERPOC SARS COV2 ANTIGEN NEGATIVEon 12-01-7401TUP SARS COV2 ANTIGEN NEGCANCELEDNormalNEGATIVEThe St. Charles HospitalComment on above:Result Comment: The released value NEGATIVE was canceled by ULISES on 07/19/2020 07:11Performed By: #### [id number] #### [facility] [address] [place] [address], [facility]ENTERPOC SARS COV2 ANTIGEN NEGNegativeNormalNEGATIVEThe St. Charles HospitalComment on above:Result Comment: Negative Results are [...] Compliance, or Certificate of Accreditation.Performed By: #### 54214 #### [facility] [address] [place] [address], USABASIC METABOLIC PANELon 96-99-2272Rxrcezf [Mass/Vol]8.2 mg/dLLow8.6-10.3The [facility] HospitalComment on above:Order Comment: No: Do not add to previous drawPerformed By: #### 11880 #### [facility] [address] [place] [address], USAChloride [Moles/Vol]101 mmol/MDjibjv91-931Vsy [facility] HospitalComment on above:Order Comment: No: Do not add to previous drawPerformed By: #### 08555 #### [facility] [address] [place] [address], USACO2 [Moles/Vol]25 mmol/GBvncro82-48Jlm [facility] HospitalComment on above:Order Comment: No: Do not add to previous draw Performed By: #### 15034 #### [facility] [address] [place] [address], USACreatinine [Mass/Vol]3.64 mg/dLHigh0.70-1.30The [facility] HospitalComment on above:Order Comment: No: Do not add to previous drawPerformed By: #### 66936 #### [facility] [address] [place] [address], USAeGFR- Szujkazh12 ml/min/1.73sq mAbnormal>60The [facility] HospitalComment on above:Order Comment: No: Do not add to previous drawPerformed By: #### 10318 #### [facility] [address] [place] [address], USAeGFR- non- Bcjefgfj15 ml/min/1.73sq mAbnormal>60The [facility] HospitalComment on above:Order Comment: No: Do not add to previous drawPerformed By: #### 59994 #### [facility] [address] [place] [address], USAGlucose [Mass/Vol]124 mg/gZMbid38-209Jtp [facility] HospitalComment on above:Order Comment: No: Do not add to previous drawPerformed By: #### 16066 #### [facility] [address] [place] [address], USAPotassium [Moles/Vol]4.3 mmol/LNormal3.5-5.1The [facility] HospitalComment on above:Order Comment: No: Do not add to previous drawPerformed By: #### 26474 #### [facility] [address] [place] [address], USASodium [Moles/Vol]134 mmol/ALgj262-763Rsl [facility] HospitalComment on above:Order Comment: No: Do not add to previous drawPerformed By: #### 05701 #### [facility] [address] [place] [address], USAUrea nitrogen [Mass/Vol]36 mg/dLHigh7-25The [facility] HospitalComment on above:Order Comment: No: Do not add to previous drawPerformed By: #### 87566 #### [facility] [address] [place] [address], USACBC W/DIFFon 61-99-5384DYP IMM GRANS0.2 10*3/uLNormal 0.0-0.2The [facility] HospitalComment on above:Order Comment: No: Do not add to previous drawPerformed By: #### 44748 #### [facility] [address] [place] [address], USAABS NEUTROPHILS5.8 10*3/uLNormal1.6-7.6The [facility] HospitalComment on above:Order Comment: No: Do not add to previous drawPerformed By: #### 74401 #### [facility] [address] [place] [id number], USABasophils (Bld) [#/Vol]0.1 10*3/uLNormal0.0-0.2The [facility] HospitalComment on above:Order Comment: No: Do not add to previous drawPerformed By: #### 51100 #### [facility] [address] [place] [address], USABasophils/100 WBC (Bld)0.6 %Normal0.0-1.0The [facility] HospitalComment on above:Order Comment: No: Do not add to previous drawPerformed By: #### 88104 #### [facility] [address] [place] [address], USAEosinophils (Bld) [#/Vol]0.6 10*3/uLHigh0.0-0.5The [facility] HospitalComment on above:Order Comment: No: Do not add to previous drawPerformed By: #### 95673 #### [facility] [address] [facility] [place] [address], USAEosinophils/100 WBC (Bld)7.0 %High0.0-6.0The [facility] HospitalComment on above:Order Comment: No: Do not add to previous drawPerformed By: #### 67496 #### [facility] [address] [facility] [place] [address], USAErythrocyte distribution width (RBC) [Ratio]14.8 %Normal 11.5-15.0The [facility] HospitalComment on above:Order Comment: No: Do not add to previous drawPerformed By: #### 21393 #### [facility] [address] [address], USAHematocrit (Bld) [Volume fraction]30.0 %Low39.0-50.0The [facility] HospitalComment on above:Order Comment: No: Do not add to previous drawPerformed By: #### 94716 #### [facility] [address] [place] [address], USAHemoglobin (Bld) [Mass/Vol]9.2 g/dLLow13.0-17.0The [facility] HospitalComment on above:Order Comment: No: Do not add to previous drawPerformed By: #### 59834 #### [facility] [address] [facility] [place] [address], USAIMMATURE GRANS1.7 %High0.0-1.0The [facility] HospitalComment on above:Order Comment: No: Do not add to previous draw Performed By: #### 04014 #### [facility] [address] [place] [address], USALymphocytes (Bld) [#/Vol]1.3 10*3/uLNormal1.2-4.0The St. Charles HospitalComment on above:Order Comment: No: Do not add to previous drawPerformed By: #### [id number] #### [facility] [address] [facility] [place] [address], USALymphocytes/100 WBC (Bld)14.3 %Low20.0-45.0The [facility]. Charles HospitalComment on above:Order Comment: No: Do not add to previous drawPerformed By: #### 69275 #### [facility] [address] [facility] [place] [address], USAMCH (RBC) [Entitic mass]27.3 inUpnbba15.0-33.0The St. Charles HospitalComment on above:Order Comment: No: Do not add to previous drawPerformed By: #### 24451 #### [facility] [address] [place] [address], [facility]AT[facility] CENTERMCHC (RBC) [Mass/Vol]30.7 g/dLLow32.0-35.0The [facility]. Charles HospitalComment on above:Order Comment: No: Do not add to previous drawPerformed By: #### 21868 #### [facility] [address] [place] [address], [facility]ATR[facility] CENTERMCV (RBC) [Entitic vol]89.0 kXTzpreg56.0-98.0The [facility]. Charles HospitalComment on above:Order Comment: No: Do not add to previous drawPerformed By: #### 46723 #### [facility] [address] [place] [address], USAMonocytes (Bld) [#/Vol]1.0 10*3/uLNormal0.1-1.0The [facility]. Charles HospitalComment on above:Order Comment: No: Do not add to previous drawPerformed By: #### 16148 #### [facility] [address] [place] [address], AKRADUPO87.9 %Normal5.0-12.0The [facility]. Charles HospitalComment on above:Order Comment: No: Do not add to previous drawPerformed By: #### 44555 #### [facility] [address] [address], USANeutrophils/100 WBC (Bld)65.5 %Koeteg54.0-72.0The [facility]. Charles HospitalComment on above:Order Comment: No: Do not add to previous drawPerformed By: #### 68364 #### [facility] [address] [place] [address], USANucleated RBC/100 WBC (Bld) [Ratio]0 %Normal0-0The [facility]. Charles HospitalComment on above:Order Comment: No: Do not add to previous drawPerformed By: #### [id number] #### [facility] [address] [place] [address], USAPLAT OXN404 10*3/vUVzxlih821-650Efn St. Charles HospitalComment on above:Order Comment: No: Do not add to previous draw Performed By: #### 71288 #### [facility] [address] [place] [address], USARBC (Bld) [#/Vol]3.37 10*6/uLLow4.20-5.70The [facility]. Charles HospitalComment on above:Order Comment: No: Do not add to previous drawPerformed By: #### 01971 #### [facility] [address] [place] [address], USAWBC (Bld) [#/Vol]8.86 10*3/uLNormal4.00-10.60The [facility] Charles HospitalComment on above:Order Comment: No: Do not add to previous drawPerformed By: #### 99557 #### [facility] [address] [place] [address], USAPOC GLUCOSE LABon 46-67-7731Bbesmic [Mass/Vol]101 mg/dLHigh 70-100The St. Charles HospitalComment on above:Performed By: #### 26618, 84596 #### [facility] [address] [place] [address], USAGlucose [Mass/Vol]76 mg/uBKndsjk73-809Ufh [facility]. Charles HospitalComment on above:Performed By: #### 23674, 91890 #### [facility] [address] [place] [address], USAGlucose [Mass/Vol]75 mg/oDLghfqh24-604Cgp [facility] HospitalComment on above:Performed By: #### 61450 ####[facility] [place] [address], USAGlucose [Mass/Vol] 198 mg/aBCzoa11-803Eon [facility]. Charles HospitalComment on above: Performed By: #### 69557 ####[facility] [place] [address], USAGlucose [Mass/Vol]205 mg/dFXlwm42-926Arx St. Charles HospitalComment on above:Performed By: #### 45488 #### [facility] [address] [place] [address], USAGlucose [Mass/Vol]187 mg/hLBgyi31-367Ahp [facility]. Charles HospitalComment on above:Performed By: #### 44517, 67761 #### [facility] [address] [place] [address], USAGlucose [Mass/Vol]131 mg/xJJjsj93-140Ozt [facility]. [facility] HospitalComment on above:Performed By: #### 00121 #### [facility] [address] [place] [address], USAGlucose [Mass/Vol]75 mg/zKBodoki78-673Mhd [facility]. [facility] HospitalComment on above:Performed By: #### 70614 #### [facility] [address] [place] [address], USAGlucose [Mass/Vol]69 mg/gLLwl44-988Jnh [facility]. [facility] HospitalComment on above:Performed By: #### 90898 ####[facility] [place] [address], USABASIC METABOLIC PANELon 34-91-8828Mwhqags [Mass/Vol]8.4 mg/dLLow8.6-10.3The [facility]. Charles HospitalComment on above:Order Comment: No: Do not add to previous draw Performed By: #### 11257 #### [facility] [address] [place] [address], USAChloride [Moles/Vol]105 mmol/HShwukd55-791Vlt [facility]. Charles HospitalComment on above:Order Comment: No: Do not add to previous drawPerformed By: #### 21339 #### [facility] [address] [place] [address], USACO2 [Moles/Vol]24 mmol/FTnhies74-27Tqi [facility]. [facility] HospitalComment on above:Order Comment: No: Do not add to previous draw Performed By: #### 78880 #### [facility] [address] [place] [address], USACreatinine [Mass/Vol]4.14 mg/dLHigh0.70-1.30The [facility] Charles HospitalComment on above:Order Comment: No: Do not add to previous drawPerformed By: #### 30211 #### [facility] [address] [place] [address], USAeGFR- Zilttacp34 ml/min/1.73sq mAbnormal>60The St. Charles HospitalComment on above:Order Comment: No: Do not add to previous drawPerformed By: #### 87823 #### [facility] [address] [place] [address], USAeGFR- non- Lrcwhogt33 ml/min/1.73sq mAbnormal>60The St. Charles HospitalComment on above:Order Comment: No: Do not add to previous drawPerformed By: #### 45130 #### [facility] [address] [place] [address], USAGlucose [Mass/Vol]127 mg/rJAjud06-869Owk [facility] HospitalComment on above:Order Comment: No: Do not add to previous drawPerformed By: #### 44043 #### [facility] [address] [place] [address], USAPotassium [Moles/Vol]4.0 mmol/LNormal3.5-5.1The [facility] HospitalComment on above:Order Comment: No: Do not add to previous drawPerformed By: #### 08200 #### [facility] [address] [place] [address], USASodium [Moles/Vol]136 mmol/KKbbasg610-729Bpv [facility]. [facility] HospitalComment on above:Order Comment: No: Do not add to previous drawPerformed By: #### 84920 #### [facility] [address] [place] [address], USAUrea nitrogen [Mass/Vol]35 mg/dLHigh7-25The [facility]. [facility] HospitalComment on above:Order Comment: No: Do not add to previous drawPerformed By: #### 39057 #### [facility] [address] [place] [address], USACBC COMPLETE BLOOD COUNTon 94-87-3601Fbmfefyybkx distribution width (RBC) [Ratio]14.6 %Fakgzp89.5-15.0The [facility] HospitalComment on above:Order Comment: No: Do not add to previous draw Performed By: #### 41494 #### [facility] [address] [place] [address], USAHematocrit (Bld) [Volume fraction]31.8 %Low39.0-50.0The [facility]. Charles HospitalComment on above:Order Comment: No: Do not add to previous drawPerformed By: #### 44228 #### [facility] [address] [place] [address], USAHemoglobin (Bld) [Mass/Vol]9.7 g/dLLow13.0-17.0The [facility] HospitalComment on above:Order Comment: No: Do not add to previous drawPerformed By: #### 08030 #### [facility] [address] [place] [address], USAMCH (RBC) [Entitic mass]27.2 ugTpnoag67.0-33.0The [facility] HospitalComment on above:Order Comment: No: Do not add to previous drawPerformed By: #### 67460 #### [facility] [address] [place] [address], [facility] CENTERMCHC (RBC) [Mass/Vol]30.5 g/dLLow32.0-35.0The [facility] HospitalComment on above:Order Comment: No: Do not add to previous drawPerformed By: #### 64245 #### [facility] [address] [place] [address], [facility] PS[facility]ATR[facility] CENTERMCV (RBC) [Entitic vol]89.3 eUFlmevv73.0-98.0The [facility] HospitalComment on above:Order Comment: No: Do not add to previous drawPerformed By: #### 00545 #### [facility] [address] [place] [address], USANucleated RBC/100 WBC (Bld) [Ratio]0 %Normal0-0The [facility]. [facility] HospitalComment on above:Order Comment: No: Do not add to previous drawPerformed By: #### 63804 #### [facility] [address] [place] [address], USAPLAT [id number] 10*3/gCBuecie088-577Kxz [facility]. [facility] HospitalComment on above:Order Comment: No: Do not add to previous draw Performed By: #### 35142 #### [facility] [address] [address], USARBC (Bld) [#/Vol]3.56 10*6/uLLow4.20-5.70The [facility] HospitalComment on above:Order Comment: No: Do not add to previous drawPerformed By: #### 15472 #### [facility] [address] [place] [address], USAWBC (Bld) [#/Vol]8.88 10*3/uLNormal4.00-10.60The [facility] HospitalComment on above:Order Comment: No: Do not add to previous drawPerformed By: #### 09439 #### [facility] [address] [place] [address], USAPOC GLUCOSE LABon 80-96-4975Dpahina [Mass/Vol]94 mg/dL Esrglc50-171Uce [facility]. [facility] HospitalComment on above:Performed By: #### 59002 #### [facility] [address] [place] [address], USAGlucose [Mass/Vol]62 mg/lYQht22-164Lwl [facility] HospitalComment on above:Performed By: #### 10424, 43403 #### [facility] [address] [place] [address], USAGlucose [Mass/Vol]80 mg/fMDcbaei33-860Npj [facility] HospitalComment on above:Performed By: #### 69715, 49203 #### [facility] [address] [place] [address], USAGlucose [Mass/Vol]99 mg/eGSyywtx20-258Wlm [facility] HospitalComment on above:Performed By: #### 06374 ####[facility] [place] [address], USAGlucose [Mass/Vol] 203 mg/uLGmsv30-651Wzd [facility] HospitalComment on above: Performed By: #### 12896 ####[facility] [place] [address], USAGlucose [Mass/Vol]151 mg/yDXkwx61-690Cpo [facility]. [facility] HospitalComment on above:Performed By: #### 22795, 47425 #### [facility] [address] [place] [address], USAANAon 10-76-1626IFZ SCREEN<1:40Normal<1:40,1:40The [facility]. [facility] HospitalComment on above:Order Comment: No: Do not add to previous drawPerformed By: #### 22935 #### [facility] [address] [place] [address], USAANCA IGG WITH REFLEX [id number] 41-79-0691VVNR<1:20Normal <1:20The St. Charles HospitalComment on above:Order Comment: No: Do not [...] collagen vascular disease or arthritis. Performed By: [facility] [address] [place] [address] Carpet Layer Helper: CATHY Ramierz METABOLIC PANELon 07-15-2020 Calcium [Mass/Vol]8.5 mg/dLLow8.6-10.3The [facility] Comment on above:Order Comment: No: Do not add to previous drawPerformed By: #### 23340 #### [facility] [address] [place] [address], USAChloride [Moles/Vol]103 mmol/GDpfkfx35-966Cxm [facility]. [facility] HospitalComment on above:Order Comment: No: Do not add to previous drawPerformed By: #### 27102 #### [facility] [address] [place] [address], USACO2 [Moles/Vol]23 mmol/AUmngjx15-38Qfg [facility] HospitalComment on above:Order Comment: No: Do not add to previous draw Performed By: #### 11298 #### [facility] [address] [place] [address], USACreatinine [Mass/Vol]4.38 mg/dLHigh0.70-1.30The [facility] HospitalComment on above:Order Comment: No: Do not add to previous drawPerformed By: #### 95584 #### [facility] [address] [place] [address], USAeGFR- Wfuugxez19 ml/min/1.73sq mAbnormal>60The [facility] HospitalComment on above:Order Comment: No: Do not add to previous drawPerformed By: #### 18095 #### [facility] [address] [place] [address], USAeGFR- non- Rcfamtsd45 ml/min/1.73sq mAbnormal>60The [facility]. [facility] HospitalComment on above:Order Comment: No: Do not add to previous drawPerformed By: #### 92194 #### [facility] [address] [place] [address], USAGlucose [Mass/Vol]154 mg/lSFygo90-780Mvg [facility] HospitalComment on above:Order Comment: No: Do not add to previous drawPerformed By: #### 81847 #### [facility] [address] [place] [address], USAPotassium [Moles/Vol]4.5 mmol/LNormal3.5-5.1The [facility] HospitalComment on above:Order Comment: No: Do not add to previous drawPerformed By: #### 48564 #### [facility] [address] [place] [address], USASodium [Moles/Vol]135 mmol/TGge907-946Coz [facility] HospitalComment on above:Order Comment: No: Do not add to previous drawPerformed By: #### 44359 #### [facility] [address] [place] [address], USAUrea nitrogen [Mass/Vol]32 mg/dLHigh7-25The [facility] HospitalComment on above:Order Comment: No: Do not add to previous drawPerformed By: #### 72958 #### [facility] [address] [place] [id number], [facility] CENTERC REACTIVE PROTEINon 15-24-0037NOV [Mass/Vol]138.0 mg/LHigh 0.0-7.0The [facility]. [facility] HospitalComment on above:Order Comment: FROM [id number] By: #### 13287 #### [facility] [address] [place] [id number], [facility] PSYCH[facility]ATRIC CENTERCBC W/DIFFon 64-47-5979NBF IMM GRANS0.1 10*3/uLNormal 0.0-0.2The [facility] HospitalComment on above:Performed By: #### 28680 #### [facility] [address] [facility] [place] [address], USAABS NEUTROPHILS7.3 10*3/uLNormal1.6-7.6The [facility] HospitalComment on above:Performed By: #### 02875 #### [facility] [address] [facility] [place] [address], USABasophils (Bld) [#/Vol]0.0 10*3/uLNormal0.0-0.2The [facility] HospitalComment on above:Performed By: #### 13106 #### [facility] [address] [facility] [place] [address], USABasophils/100 WBC (Bld)0.3 %Normal0.0-1.0The [facility] Charles HospitalComment on above:Performed By: #### 15037 #### [facility] [address] [facility] [place] [address], USAEosinophils (Bld) [#/Vol]0.5 10*3/uLNormal0.0-0.5The [facility] HospitalComment on above:Performed By: #### 32560 #### [facility] [address] [facility] [address], USAEosinophils/100 WBC (Bld)5.1 %Normal0.0-6.0The [facility] HospitalComment on above:Performed By: #### 78730 #### [facility] [address] [facility] [place] [address], USAErythrocyte distribution width (RBC) [Ratio]14.9 %Normal 11.5-15.0The [facility] HospitalComment on above:Performed By: #### 57154 #### [facility] [address] [facility] [place] [address], USAHematocrit (Bld) [Volume fraction]33.0 %Low39.0-50.0The [facility] HospitalComment on above:Performed By: #### 21224 #### [facility] [address] [facility] [place] [address], USAHemoglobin (Bld) [Mass/Vol]9.9 g/dLLow13.0-17.0The [facility] HospitalComment on above:Performed By: #### 48572 #### [facility] [address] [facility] [place] [address], USAIMMATURE GRANS1.4 %High0.0-1.0The [facility] Charles HospitalComment on above:Performed By: #### 52064 #### [facility] [address] [facility] [place] [address], USALymphocytes (Bld) [#/Vol]1.1 10*3/uLLow1.2-4.0The [facility] HospitalComment on above:Performed By: #### 61425 #### [facility] [address] [place] [address], USALymphocytes/100 WBC (Bld)11.0 %Low20.0-45.0The [facility] HospitalComment on above:Performed By: #### 37000 #### [facility] [address] [place] [address], [facility] (RBC) [Entitic mass]27.0 raQpnrxq75.0-33.0The [facility] HospitalComment on above:Performed By: #### 68686 #### [facility] [address] [place] [address], [facility] CENTERMCHC (RBC) [Mass/Vol]30.0 g/dLLow32.0-35.0The [facility] HospitalComment on above:Performed By: #### 44863 #### [facility] [address] [facility] [place] [address], [facility] CENTERMCV (RBC) [Entitic vol]90.2 pKKpdlke80.0-98.0The [facility] HospitalComment on above:Performed By: #### 71914 #### [facility] [address] [facility] [place] [address], USAMonocytes (Bld) [#/Vol]1.1 10*3/uLHigh0.1-1.0The [facility] HospitalComment on above:Performed By: #### 61429 #### [facility] [address] [place] [address], LRQBIXNO33.9 %Normal5.0-12.0The [facility] HospitalComment on above:Performed By: #### 35714 #### [facility] [address] [place] [address], USANeutrophils/100 WBC (Bld)71.3 %Zbkqsz68.0-72.0The [facility] HospitalComment on above:Performed By: #### 07541 #### [facility] [address] [place] [address], USANucleated RBC/100 WBC (Bld) [Ratio]0 %Normal0-0The [facility] HospitalComment on above:Performed By: #### 47138 #### [facility] [address] [place] [address], USAPLAT TXG704 10*3/iULvgusw997-903Jtj [facility] HospitalComment on above:Performed By: #### 99491 #### [facility] [address] [place] [address], USARBC (Bld) [#/Vol]3.66 10*6/uLLow4.20-5.70The [facility] HospitalComment on above:Performed By: #### 18297 #### [facility] [address] [place] [address], USAWBC (Bld) [#/Vol]10.23 10*3/uLNormal4.00-10.60The [facility] HospitalComment on above:Performed By: #### 86722 #### [facility] [address] [address], USACOMPLEMENT [id number] 3108 mg/kBPrlabu17-[address] [facility] HospitalComment on above:Order Comment: No: Do not add to previous drawPerformed By: #### 97756 #### [facility] [address] [place] [address], USACOMPLEMENT 426-09-7144WWNGCPJUVL 431 mg/wSUhajgf58-33Hyq [facility] HospitalComment on above:Order Comment: No: Do not add to previous drawPerformed By: #### 61132 #### [facility] [address] [place] [address], USAGLOMR BASMT MEMBRon 73-51-9221WCFLX BASMT MBRNNegative AbnormalNEGATIVEThe St. Charles HospitalComment on above:Order Comment: No: Do not add to previous drawResult Comment: Note: The performance characteristics of this test were validated by the [facility] Immunology laboratory. It has not been cleared or approved by the U.S. Food and Drug Administration. The results are not intended to be used as the sole means for clinical diagnosis or patient management decisions. [facility] is authorized under CLIA to perform high-complexity testing.Performed By: #### 93206 #### [facility] [address] [facility] [address], USAPOC GLUCOSE LABon 83-86-7831Dbicgzh [Mass/Vol]107 mg/dLHigh 70-100The [facility] HospitalComment on above:Performed By: #### 46210, 93117 #### [facility] [address] [facility] [place] [address], USAGlucose [Mass/Vol]84 mg/qTQqzhzw22-000Gqj [facility] HospitalComment on above:Performed By: #### 84586 #### [facility] [address] [facility] [place] [address], USAGlucose [Mass/Vol]164 mg/cHSxmh30-694Ggb [facility] HospitalComment on above:Performed By: #### 25478 ####[facility] [facility] [place] [address], USAGlucose [Mass/Vol] 141 mg/zPYmtc02-595Xpx [facility] HospitalComment on above: Performed By: #### 94193, 34522 #### [facility] [address] [facility] [place] [address], USAPORTABLE CHEST 1 VIEWon [id number] CHEST [address] [facility] Department of Radiology [address] [place] [address] Patient Name: RASHARD LYMAN : 1960 Sex: M Age: Race: White Pt. Location: [address] [place] [address] Patient Status: I Ordered Date: 07/15/2020 7:00:00 [...] exam. Electronically signed: Nir Swartz. Transcribed by: [email or web address], User Resident: Electronically Signed by: NIR SWARTZ @ 07/15/2020 07:34 AMNormalACMC Healthcare System GlenbeighComment on above:Order Comment: evaluate for Effusion*AFB CULTUREon 07-14-2020*AFB CULTUREClinical Report: (D) Specimen/Source: FLUID/PLEURAL FLUID Collected: 07/14/2020 13:03 Status: Final Last Updated: 08/26/2020 08:52 (1) Left Peural Effusion AFB (Final) No Acid Fast Bacilli Seen CULT RES (Final) No growth after 42 days of incubationCleveland Clinic Mercy HospitalComment on above:Order Comment: Left Peural EffusionPerformed By: #### 27439 #### [facility] [address]*ANAEROBIC CULTUREon 07-14-2020*ANAEROBIC CULTUREClinical Report: (D) Specimen/Source: FLUID/PLEURAL FLUID Collected: 07/14/2020 13:03 Status: Final Last Updated: 07/19/2020 08:08 (1) Left Peural Effusion CULT RES (Final) No Anaerobes Isolated 5 DaysCleveland Clinic Mercy HospitalComment on above:Order Comment: Left Peural EffusionPerformed By: #### 97336 #### [facility] [address]*BODY FLUID CULTUREon 07-14-2020*BODY FLUID CULTUREClinical Report: (D) Specimen/Source: FLUID/PLEURAL FLUID Collected: 07/14/2020 13:03 Status: Final Last Updated: 07/19/2020 07:53 (1) Left Peural Effusion GRAM (Final) Polys PRESENT No Bacteria Seen CYTOSPUN (Final) This Gram Stain was done on a cytocentrifuged specimen CULT RES (Final) No Growth Day 5NoOur Lady of Mercy HospitalComment on above: Order Comment: Left Peural EffusionPerformed By: #### 05644 #### [address]*FUNGAL CULTUREon 07-14-2020*FUNGAL CULTUREClinical Report: (D) Specimen/Source: FLUID/PLEURAL FLUID Collected: 07/14/2020 13:03 Status: Final Last Updated: 08/15/2020 08:41 (1) Left Peural Effusion FS (Final) No Yeast or Fungal Elements Seen CULT RES (Final) Culture negative for fungusCleveland Clinic Mercy HospitalComment on above:Order Comment: Left Peural EffusionPerformed By: #### 69227 #### [facility] [address]*VIRAL NON RESPIRATORY CULTUREon 76-80-0395Tisvinlp identified Cx Nom (Unsp spec)NormalThe [facility] Comment on above:Order Comment: Left Peural [...] Virus detected by Enzyme Linked Virus Inducible S.[facility] HospitalComment on above: Order Comment: Left Peural EffusionResult Comment: Test Performed by [facility] [address] - Released 07/20/2020 14:10 Result changed by IF on 07/17/2020 14:17. The previous value was Test Performed by [facility] [address] [phone].. Result changed by IF on 07/18/2020 12:17. The previous value was Test Performed by [facility] [address] [phone].. Result changed by IF on 07/20/2020 14:10. The previous value was Test Performed by [facility] [address] [phone]..REPORT STATUSFINAL 07/20/2020[facility] Comment on above:Order Comment: Left Peural EffusionResult Comment: Result changed by IF on 07/20/2020 14:10. The previous value was Preliminary.APTTon 88-91-2635aXTH Coag (Bld) [Time]41.7 sHigh25.0-35.0The St[facility] HospitalComment on above:Order Comment: No: Do not [...] BE USED FOR THIS PURPOSE.Performed By: #### 62494 #### [facility] [address] [place] [address], USAaPTT Coag (Bld) [Time]44.9 sHigh25.0-35.0The [facility] HospitalComment on above:Order Comment: No: Do not [...] BE USED FOR THIS PURPOSE.Performed By: #### 21161, 96287 #### [facility] [address] [place] [address], USABASIC METABOLIC PANELon 77-66-2843Ywzvmub [Mass/Vol]8.6 mg/dLNormal8.6-10.3The [facility] HospitalComment on above:Order Comment: No: Do not add to previous drawPerformed By: #### [id number] #### [facility] [address] [place] [address], USAChloride [Moles/Vol]102 mmol/DNwwhor43-345Vmp [facility]. Charles HospitalComment on above:Order Comment: No: Do not add to previous drawPerformed By: #### [id number] #### [facility] [address] [place] [address], USACO2 [Moles/Vol]24 mmol/DIzyjbc68-80Xxt St. [facility] HospitalComment on above:Order Comment: No: Do not add to previous draw Performed By: #### [id number] #### [facility] [address] [place] [address], USACreatinine [Mass/Vol]3.44 mg/dLHigh0.70-1.30The [facility] Charles HospitalComment on above:Order Comment: No: Do not add to previous drawPerformed By: #### [id number] #### [facility] [address] [place] [address], USAeGFR- Unocrmry48 ml/min/1.73sq mAbnormal>60The St. Charles HospitalComment on above:Order Comment: No: Do not add to previous drawPerformed By: #### [id number] #### [facility] [address] [place] [address], USAeGFR- non- Olsfmkcq97 ml/min/1.73sq mAbnormal>60The St. Charles HospitalComment on above:Order Comment: No: Do not add to previous drawPerformed By: #### [id number] #### [facility] [address] [place] [address], USAGlucose [Mass/Vol]355 mg/kYObui20-243Nsd St. Charles HospitalComment on above:Order Comment: No: Do not add to previous drawPerformed By: #### [id number] #### [facility] [address] [place] [address], USAPotassium [Moles/Vol]4.6 mmol/LNormal3.5-5.1The St. Charles HospitalComment on above:Order Comment: No: Do not add to previous drawPerformed By: #### 06960 #### [facility] [address] [place] [address], USASodium [Moles/Vol]133 mmol/PCkd658-469Ggh St. Charles HospitalComment on above:Order Comment: No: Do not add to previous drawPerformed By: #### 15227 #### [facility] [address] [place] [address], USAUrea nitrogen [Mass/Vol]27 mg/dLHigh7-25The St. Charles HospitalComment on above:Order Comment: No: Do not add to previous drawPerformed By: #### 47727 #### [facility] [address] [facility] [place] [address], USABNP (B-TYPE NATRIURETIC PEPTIDE)on 35-24-4131Qqggtfkyrrf peptide B (Bld) [Mass/Vol]19 pg/mLNormal0-100The St. Charles HospitalComment on above:Order Comment: Left Peural EffusionResult Comment: Given the appropriate clinical setting a BNP result of >100 pg/mL indicates congestive heart failure.Performed By: #### 51718 #### [facility] [address] [facility] [place] [address], USACBC COMPLETE BLOOD COUNTon 89-63-1727Wircabeztsw distribution width (RBC) [Ratio]14.6 %Zwmrsy89.5-15.0The St. Charles HospitalComment on above:Order Comment: No: Do not add to previous draw Performed By: #### [id number] #### [facility] [address] [facility] [place] [address], USAHematocrit (Bld) [Volume fraction]35.3 %Low39.0-50.0The St. Charles HospitalComment on above:Order Comment: No: Do not add to previous drawPerformed By: #### 78069 #### [facility] [address] [facility] [place] [address], USAHemoglobin (Bld) [Mass/Vol]11.1 g/dLLow13.0-17.0The St. Charles HospitalComment on above:Order Comment: No: Do not add to previous drawPerformed By: #### 66571 #### [facility] [address] [facility] [place] [address], USAMCH (RBC) [Entitic mass]27.5 vpHdqsgc33.0-33.0The St. Charles HospitalComment on above:Order Comment: No: Do not add to previous drawPerformed By: #### 09196 #### [facility] [address] [address], [facility] PSYCH[facility]ATR[facility] CENTERMCHC (RBC) [Mass/Vol]31.4 g/dLLow32.0-35.0The St. Charles HospitalComment on above:Order Comment: No: Do not add to previous drawPerformed By: #### 85360 #### [facility] [address] [address], [facility] PS[facility]CHIATR[facility] CENTERMCV (RBC) [Entitic vol]87.6 wPUluflu11.0-98.0The St. Charles HospitalComment on above:Order Comment: No: Do not add to previous drawPerformed By: #### 39912 #### [facility] [address] [address], USANucleated RBC/100 WBC (Bld) [Ratio]0 %Normal0-0The St. Charles HospitalComment on above:Order Comment: No: Do not add to previous drawPerformed By: #### [id number] #### [facility] [address] [address], USAPLAT NVJ726 10*3/kZWitqpm444-427Mcl St. Charles HospitalComment on above:Order Comment: No: Do not add to previous draw Performed By: #### 97664 #### [facility] [address] [address], USARBC (Bld) [#/Vol]4.03 10*6/uLLow4.20-5.70The St. Charles HospitalComment on above:Order Comment: No: Do not add to previous drawPerformed By: #### [id number] #### [facility] [address] [place] [address], USAWBC (Bld) [#/Vol]12.59 10*3/uLHigh4.00-10.60The St. Charles HospitalComment on above:Order Comment: No: Do not add to previous drawPerformed By: #### 95652 #### [facility] [address] [place] [address], [facility] PSYCHIATRIC CENTERCBC W/DIFFon 96-44-8612BWI IMM GRANS0.2 10*3/uLNormal 0.0-0.2The St. Charles HospitalComment on above:Order Comment: No: Do not add to previous drawPerformed By: #### 95166 #### [facility] [address] [facility] [place] [address], USAABS NEUTROPHILS7.9 10*3/uLHigh1.6-7.6The St. Charles HospitalComment on above:Order Comment: No: Do not add to previous drawPerformed By: #### 36617 #### [facility] [address] [place] [address], USABasophils (Bld) [#/Vol]0.1 10*3/uLNormal0.0-0.2The St. Charles HospitalComment on above:Order Comment: No: Do not add to previous drawPerformed By: #### 80026 #### [facility] [address] [facility] [place] [address], USABasophils/100 WBC (Bld)0.5 %Normal0.0-1.0The St. Charles HospitalComment on above:Order Comment: No: Do not add to previous drawPerformed By: #### 34890 #### [facility] [address] [facility] [address], USAEosinophils (Bld) [#/Vol]0.5 10*3/uLNormal0.0-0.5The St. Charles HospitalComment on above:Order Comment: No: Do not add to previous drawPerformed By: #### 31808 #### [facility] [address] [facility] [place] [address], USAEosinophils/100 WBC (Bld)4.3 %Normal0.0-6.0The St. Charles HospitalComment on above:Order Comment: No: Do not add to previous drawPerformed By: #### 42238 #### [facility] [address] [facility] [place] [id number], USAErythrocyte distribution width (RBC) [Ratio]14.6 %Normal 11.5-15.0The St. Charles HospitalComment on above:Order Comment: No: Do not add to previous drawPerformed By: #### 64168 #### [facility] [address] [facility] [place] [address], USAHematocrit (Bld) [Volume fraction]34.2 %Low39.0-50.0The St. Charles HospitalComment on above:Order Comment: No: Do not add to previous drawPerformed By: #### 92003 #### [facility] [address] [facility] [address], USAHemoglobin (Bld) [Mass/Vol]10.3 g/dLLow13.0-17.0The [facility] HospitalComment on above:Order Comment: No: Do not add to previous drawPerformed By: #### 66454 #### [facility] [address] [facility] [place] [address], USAIMMATURE GRANS1.4 %High0.0-1.0The St. Charles HospitalComment on above:Order Comment: No: Do not add to previous draw Performed By: #### 06835 #### [facility] [address] [facility] [address], USALymphocytes (Bld) [#/Vol]1.3 10*3/uLNormal1.2-4.0The St. Charles HospitalComment on above:Order Comment: No: Do not add to previous drawPerformed By: #### [id number] #### [facility] [address] [place] [address], USALymphocytes/100 WBC (Bld)11.3 %Low20.0-45.0The St. Charles HospitalComment on above:Order Comment: No: Do not add to previous drawPerformed By: #### 62266 #### [facility] [address] [place] [address], [facility] (RBC) [Entitic mass]27.0 deZeekgd57.0-33.0The St. Charles HospitalComment on above:Order Comment: No: Do not add to previous drawPerformed By: #### 88423 #### [facility] [address] [place] [address], [facility]YCH[facility]ATR[facility] CENTERMCHC (RBC) [Mass/Vol]30.1 g/dLLow32.0-35.0The St. Charles HospitalComment on above:Order Comment: No: Do not add to previous drawPerformed By: #### 79916 #### [facility] [address] [place] [address], [facility] (RBC) [Entitic vol]89.5 vVRaqqcz90.0-98.0The St[facility] HospitalComment on above:Order Comment: No: Do not add to previous drawPerformed By: #### [id number] #### [facility] [address] [place] [address], USAMonocytes (Bld) [#/Vol]1.4 10*3/uLHigh0.1-1.0The [facility]. Charles HospitalComment on above:Order Comment: No: Do not add to previous drawPerformed By: #### 45537 #### [facility] [address] [place] [address], KVULSVIB41.6 %High5.0-12.0The St. Charles HospitalComment on above:Order Comment: No: Do not add to previous drawPerformed By: #### 05724 #### [facility] [address] [place] [address], USANeutrophils/100 WBC (Bld)69.9 %Akshtb55.0-72.0The [facility]. Charles HospitalComment on above:Order Comment: No: Do not add to previous drawPerformed By: #### 97199 #### [facility] [address] [place] [address], USANucleated RBC/100 WBC (Bld) [Ratio]0 %Normal0-0The [facility]. Charles HospitalComment on above:Order Comment: No: Do not add to previous drawPerformed By: #### 23742 #### [facility] [address] [address], USAPLAT VOV327 10*3/sWTcgorw099-241Rka St. Charles HospitalComment on above:Order Comment: No: Do not add to previous draw Performed By: #### 92750 #### [facility] [address] [address], USARBC (Bld) [#/Vol]3.82 10*6/uLLow4.20-5.70The [facility]. Charles HospitalComment on above:Order Comment: No: Do not add to previous drawPerformed By: #### 99044 #### [facility] [address] [address], USAWBC (Bld) [#/Vol]11.28 10*3/uLHigh4.00-10.60The [facility]. [facility] HospitalComment on above:Order Comment: No: Do not add to previous drawPerformed By: #### 26440 #### [facility] [address] [address], USACOMP METABOLIC PANELon 80-50-0309Pafrqwc [Mass/Vol]3.1 g/dL Low3.5-5.7The St. Charles HospitalComment on above:Order Comment: No: Do not add to previous drawPerformed By: #### 81240 #### [facility] [address] [place] [address], USAALKALINE BJVDZV97 IU/SIbrdky04-154Tzb St. Charles HospitalComment on above:Order Comment: No: Do not add to previous draw Performed By: #### 01258 #### [facility] [address] [place] [address], USAALT [Catalytic activity/Vol]8 U/LNormal7-52The [facility]. [facility] HospitalComment on above:Order Comment: No: Do not add to previous drawPerformed By: #### 61907 #### [facility] [address] [place] [address], USAAST [Catalytic activity/Vol]11 U/KCwz88-25Jwb St. [facility] HospitalComment on above:Order Comment: No: Do not add to previous drawPerformed By: #### 80637 #### [facility] [address] [place] [address], USABilirubin [Mass/Vol]0.3 mg/dLNormal0.3-1.0The [facility] HospitalComment on above:Order Comment: No: Do not add to previous drawPerformed By: #### 80746 #### [facility] [address] [place] [address], USACalcium [Mass/Vol]8.8 mg/dLNormal8.6-10.3The [facility] HospitalComment on above:Order Comment: No: Do not add to previous drawPerformed By: #### 42772 #### [facility] [address] [place] [address], USAChloride [Moles/Vol]101 mmol/CHwuvmz03-490Oxo St. Charles HospitalComment on above:Order Comment: No: Do not add to previous drawPerformed By: #### 15217 #### [facility] [address] [place] [address], USACO2 [Moles/Vol]22 mmol/DBnqags57-84Qvs St. [facility] HospitalComment on above:Order Comment: No: Do not add to previous draw Performed By: #### 05180 #### [facility] [address] [place] [address], USACreatinine [Mass/Vol]3.38 mg/dLHigh0.70-1.30The [facility] HospitalComment on above:Order Comment: No: Do not add to previous drawPerformed By: #### 68092 #### [facility] [address] [place] [address], USAeGFR- Xehwjtqv30 ml/min/1.73sq mAbnormal>60The [facility] Charles HospitalComment on above:Order Comment: No: Do not add to previous drawPerformed By: #### 28988 #### [facility] [address] [place] [address], USAeGFR- non- Afpcculk04 ml/min/1.73sq mAbnormal>60The [facility] HospitalComment on above:Order Comment: No: Do not add to previous drawPerformed By: #### 77257 #### [facility] [address] [place] [address], USAGlucose [Mass/Vol]324 mg/eNZlzw79-170Wmo St. [facility] HospitalComment on above:Order Comment: No: Do not add to previous drawPerformed By: #### 03700 #### [facility] [address] [place] [address], USAPotassium [Moles/Vol]4.5 mmol/LNormal3.5-5.1The [facility] HospitalComment on above:Order Comment: No: Do not add to previous drawPerformed By: #### 18436 #### [facility] [address] [place] [address], USAProtein [Mass/Vol]6.7 g/dLNormal6.0-8.3The [facility] HospitalComment on above:Order Comment: No: Do not add to previous drawPerformed By: #### 89471 #### [facility] [address] [place] [address], USASodium [Moles/Vol]131 mmol/NQnh584-096Ryv St. [facility] HospitalComment on above:Order Comment: No: Do not add to previous drawPerformed By: #### 82175 #### [facility] [address] [facility] [place] [address], USAUrea nitrogen [Mass/Vol]27 mg/dLHigh7-25The [facility] HospitalComment on above:Order Comment: No: Do not add to previous drawPerformed By: #### 48180 #### [facility] [address] [facility] [place] [address], USACREATININE URINE RANDOMon 40-87-3042Fezckwdtjq (U) [Mass/Vol]101.0 mg/dLNoSamaritan Hospitale St. Charles HospitalComment on above:Order Comment: No: Do not add to previous drawResult Comment: There are no established reference values for random urine specimensPerformed By: #### 57117 #### [facility] [address] [place] [address], USAFLUID CELL COUNTon 73-11-4901Jenjquohb/100 WBC (Bld)1 % NormalThe St. Charles HospitalComment on above:Performed By: #### 23921 #### [facility] [address] [facility] [place] [address], USAEosinophils/100 WBC (Bld)11 %NormalThe St. Charles HospitalComment on above:Performed By: #### 79268 #### [facility] [address] [place] [address], USALymphocytes/100 WBC (Bld)49 %NormalThe St. Charles HospitalComment on above:Performed By: #### 20669 #### [facility] [address] [place] [address], DDUWIESEYRXJMN37 %NormalThe St. Charles HospitalComment on above:Performed By: #### 79092 #### [facility] [address] [place] [address], USAOTHER F1Diff done by cytosSelect Medical Specialty Hospital - TrumbullComment on above:Performed By: #### 69247 #### [facility] [address] [place] [address], USAOTHER Z8Qgvednu by Mac Rodriguez M.D.NormalThe St. Charles HospitalComment on above:Result Comment: Result changed by [facility] on 07/15/2020 13:33. The previous value was Preliminary report; verified report to follow.Performed By: #### 49655 #### [facility] [address] [place] [address], [id number] RBC/[facility]'s Medical CenterComment on above:Performed By: #### 49402 #### [facility] [address] [place] [address], ZEASJEH54 %NormalThe [facility] Comment on above:Performed By: #### 11683 #### [facility] [address] [place] [address], USASOURCEThoracentesisCleveland Clinic Mercy HospitalComment on above:Performed By: #### 25143 #### [facility] [address] [place] [address], USATOTAL QOWUZH4LGuvoztRvoCleveland Clinic Mercy Hospital Comment on above:Performed By: #### 43984 #### [facility] [address] [place] [address], BCOTCG1802 WBC/uLNormalThe [facility]. [facility] Comment on above:Result Comment: Some reference interval(s) and other method performance specifications have not been established for analytes on this body fluid. The test result must be integrated into the clinical context for interpretation.Performed By: #### 79095 #### [facility] [address] [place] [address], USAGLUCOSE FLUID MISCon 05-52-1460Cpruccm [Mass/Vol]326 mg/dL NormalThe St. Charles HospitalComment on above:Result Comment: The reference range and other method performance specifications have not been established for this test in fluids. the test result should be integrated into the clinical context for interpretation.Performed By: #### 43087 #### [facility] [address] [place] [address], USAHEMOGLOBIN A1Con 93-81-3348Kebmnva [Moles/Vol]295 mmol/L NormalThe St. Charles HospitalComment on above:Order Comment: Left Peural EffusionPerformed By: #### 77318 #### [facility] [address] [place] [address], NXHBaV2j (Bld) [Mass fraction]11.9 %High4.0-6.0The St. Charles HospitalComment on above:Order Comment: Left Peural Effusion Performed By: #### 08231 #### [facility] [address] [place] [address], USAHEPATITIS B SURFACE ANTIGEN QUALon 35-99-9763BAL B SURF AG QUALNon-ReactiveNormalNONREACTIVEThe St. Charles HospitalComment on above:Order Comment: No: Do not add to previous drawPerformed By: #### 69812 #### [facility] [address] [place] [address], USAHEPATITIS C ANTIBODYon 01-65-8208WYOL-HCVNon-ReactiveNormal NONREACTIVEThe St. Charles HospitalComment on above:Order Comment: No: Do not add to previous drawPerformed By: #### 61278 #### [facility] [address] [place] [address], USALDH BLOODon [id number] Units/RZbevvu461-519Kmv St. Charles HospitalComment on above:Order Comment: Left Peural EffusionPerformed By: #### 37104 #### [facility] [address] [place] [address], SDFYUN450 Units/VNau089-609Rek [facility] HospitalComment on above:Order Comment: No: Do not add to previous drawPerformed By: #### 97377 #### [facility] [address] [place] [address], USALDH FLUIDon 14-13-6520SXN647 Units/LNormalThe St. Charles HospitalComment on above:Result Comment: The reference range and other method performance specifications have not been established for this test in fluids. the test result should be integrated into the clinical context for interpretation.Performed By: #### 98241 #### [facility] [address] [place] [address], USALIPID PROFILEon 26-13-2890Rhelcnrwxct [Mass/Vol]95 mg/dLLow 120-200The St. [facility] HospitalComment on above:Order Comment: No: Do not add to previous drawResult Comment: CHOLESTEROL REFERENCE RANGE: 20 YEARS AND OLDER CARDIOVASCULAR RISK Less than 200 mg/dl Low Risk 200 to 239 mg/dl Borderline Risk 240 mg/dl and greater High RiskPerformed By: #### 87244 #### [facility] [address] [place] [address], USACholesterol in HDL [Mass/Vol]36 mg/uHSijhkc48-69Vyt St. Charles HospitalComment on above:Order Comment: No: Do not add to previous drawResult Comment: Slight variation in normal range could be due to gender and/or age. HDL CHOLESTEROL REFERENCE RANGE: 20 years and older Cardiovascular Risk > or =60 mg/dL Desirable 40 TO 59 mg/dL Low Risk <40 mg/dL High RiskPerformed By: #### 23350 #### [facility] [address] [facility] [place] [address], USACholesterol in LDL [Mass/Vol]37 mg/dLNormal0-130The [facility]. [facility] HospitalComment on above:Order Comment: No: Do not add to previous drawResult Comment: LDL IS A CALCULATION LDL IS ONLY VALID IF THE TRIG IS LESS THAN 400.Performed By: #### 75471 #### [facility] [address] [place] [address], USACholesterol.total/Cholesterol in HDL [Mass ratio]2.6 {ratio}Normal0.0-4.5The St. Charles HospitalComment on above: Order Comment: No: Do not add to previous drawPerformed By: #### 33039 #### [facility] [address] [facility] [address], USANON-HDL JSUCBBTUIFF82 mg/dLNormalThe St. Charles HospitalComment on above:Order Comment: No: Do not add to previous draw Performed By: #### 86783 #### [facility] [address] [facility] [place] [address], USATriglyceride [Mass/Vol]109 mg/hKKripob99-289Xza [facility] HospitalComment on above:Order Comment: No: Do not add to previous drawResult Comment: TRIGLYCERIDE REFERENCE RANGE: 20 YEARS AND OLDER CARDIOVASCULAR RISK LESS THAN 150 mg/dl LOW RISK 150 TO 199 mg/dl BORDERLINE RISK 200 mg/dl AND GREATER HIGH RISKPerformed By: #### 14025 #### [facility] [address] [facility] [place] [address], USAVLDL CHOL22 mg/dLNormal0-40The St. [facility] HospitalComment on above:Order Comment: No: Do not add to previous drawPerformed By: #### 67868 #### [facility] [address] [place] [address], USAMAGNESIUM BLOODon 02-95-1133Ltgwrlrem [Mass/Vol]2.1 mg/dL Normal1.9-2.7The St. [facility] HospitalComment on above:Order Comment: No: Do not add to previous drawPerformed By: #### 40889 #### [facility] [address] [place] [address], USAMagnesium [Mass/Vol]2.0 mg/dLNormal1.9-2.7The [facility] HospitalComment on above:Performed By: #### 59817 #### [facility] [address] [place] [address], USAPHOSPHORUS BLOODon 68-67-7956Rxqtwxbku [Mass/Vol]4.1 mg/dL Normal2.5-5.0The [facility] HospitalComment on above:Order Comment: No: Do not add to previous drawPerformed By: #### 15495 #### [facility] [address] [place] [address], USAPhosphate [Mass/Vol]4.0 mg/dLNormal2.5-5.0The [facility] HospitalComment on above:Performed By: #### 04772 #### [facility] [address] [place] [address], USAPOC GLUCOSE LABon 70-84-9813Vikkpbu [Mass/Vol]180 mg/dLHigh 70-100The St. [facility] HospitalComment on above:Performed By: #### 94258 ####[facility] [place] [address], USAGlucose [Mass/Vol]198 mg/mVRhax76-921Vqr [facility]. [facility] HospitalComment on above:Performed By: #### 82759, 19717 #### [facility] [address] [place] [address], USAGlucose [Mass/Vol]265 mg/tWXtip41-039Neo St. [facility] HospitalComment on above:Performed By: #### 38264 #### [facility] [address] [facility] [place] [address], USAGlucose [Mass/Vol]305 mg/qYXjii96-075Pat [facility]. [facility] HospitalComment on above:Performed By: #### 25421, 91832 #### [facility] [address] [address], USAGlucose [Mass/Vol]301 mg/eGTqij77-278Uqj [facility] HospitalComment on above:Performed By: #### 36376 #### [facility] [address] [place] [address], USAPORTABLE CHEST 1 VIEWon 43-64-0953VXELQVUW CHEST [address] [facility] Department of Radiology [address] [place] [id number] Patient Name: RASHARD LYMAN : 1960 Sex: M Age: Race: White Pt. Location: [address] [place] [address] Patient Status: I Ordered Date: 07/14/2020 1:40:00 [...] above Electronically signed: Patricia Damon. Transcribed by: [email or web address], User Resident: Electronically Signed by: PATRICIA DAMON @ 07/14/2020 03:24 [facility] CampusComment on above:Order Comment: Evaluate for PneumothoraxPORTABLE CHEST 1 VIEWUnAdena [facility] Department of Radiology [address] [place] [id number] Patient Name: RASHARD LYMAN : 1960 Sex: M Age: Race: White Pt. Location: [address] [place] [address] Patient Status: I Ordered Date: 07/13/2020 11:35:00 [...] reports Electronically signed: Valdemar Foster. Transcribed by: [email or web address], User Resident: SY [email or web address] Electronically Signed by: VALDEMAR FOSTER @ 07/14/2020 06:31 AM I personally read this/these film(s) with this [facility] HospitalComment on above:Order Comment: evaluate for Effusion PROTEIN ELECT Truong [id number] [Mass/Vol]6.0 g/dLNormal6.0-8.3The St. [facility] HospitalComment on above:Performed By: #### 62074 #### [facility] [address] [place] [address], USAPROTEIN ELECTNoOur Lady of Mercy Hospital Comment on above:Result Comment: Decreased albumin and elevated alpha 1 and 2 suggests acute inflammation.Performed By: #### 08144 #### [facility] [address] [place] [address], USAPROTEIN ELECT URon [id number] ELECTUrine protein electrophoresis suggests a nonselective nephropathy.NormalThe St. Charles HospitalComment on above:Performed By: #### 95718 #### [facility] [address] [place] [address], USAPROTEIN TOTAL BLOODon 67-07-6936Efyztlh [Mass/Vol]6.7 g/dL Normal6.0-8.3The St. Charles HospitalComment on above:Order Comment: Left Peural EffusionPerformed By: #### [id number] #### [facility] [address] [place] [address], USAPROTHROMBIN TIMEon 99-30-5744OHX Coag (PPP) [Relative time] 1.12 {INR}Normal0.91-1.16The [facility]. Charles HospitalComment on above:Order Comment: No: Do not add to previous drawResult Comment: [facility] [place], [facility] RECOMMENDED INR FOR WARFARIN THERAPY ------- CONDITION [...] OPTIMAL THERAPEUTIC RANGE. CHEST 1995;108:231S-246S.Performed By: #### [id number], [id number] #### [facility] [address] [facility] [place] [address], USAPT Coag (PPP) [Time]14.[address]vhxoq79.3-14.8The [address] Charles HospitalComment on above:Order Comment: No: Do not add to previous drawResult Comment: ALL RESULTS MUST BE INTERPRETED WITH RESPECT TO BLOOD DRAWING ARTIFACT OR DILUTION ERROR OF ANTICOAGULANT AT THE TIME OF SAMPLING.Performed By: #### [id number], [id number] #### [facility] [address] [facility] [place] [id number], USASEDIMENTATION RATEon 51-36-0952RJM RATE32 mm/hrHigh0-10The St. Charles HospitalComment on above:Performed By: #### [id number] #### [facility] [address] [place] [address], USASODIUM URINE RANDOMon 32-03-9156Zdyptu (U) [Moles/Vol]59 mmol/LNormalThe St. Charles HospitalComment on above:Order Comment: No: Do not add to previous drawResult Comment: There are no established reference values for random urine specimensPerformed By: #### [id number] #### [facility] [address] [place] [address], USAT PROT FLUIDon 22-71-7945Wpgoqpo [Mass/Vol]3.6 g/dLNormal The [facility]. Charles HospitalComment on above:Result Comment: The reference range and other method performance specifications have not been established for this test in fluids. the test result should be integrated into the clinical context for interpretation.Performed By: #### [id number] #### [facility] [address] [place] [address], USAT PROT UR Loretta 07-14-2020U TOTAL TIILHWR777.0 mg/dLNormal The [facility]. Charles HospitalComment on above:Order Comment: No: Do not add to previous drawResult Comment: There are no established reference values for random urine specimensPerformed By: #### [id number] #### [facility] [address] [place] [address], USAPerformed By: #### [id number] #### [facility] [address] [facility] [place] [address], USATROPONIN-Ion 23-00-0241Zgydrypb I.cardiac [Mass/Vol]0.09 ng/mLHigh0.00-0.04The [facility]. Charles HospitalComment on above:Order Comment: No: Do not add to previous drawResult Comment: REFERENCE RANGES: 0.00 - 0.04 ng/ml NORMAL 0.05 - 0.50 ng/ml INDETERMINATE > 0.50 ng/ml CONSISTENT WITH AN M.I.Performed By: #### [id number] #### [facility] [address] [place] [address], USATroponin I.cardiac [Mass/Vol]0.07 ng/mLHigh0.00-0.04The [facility] Charles HospitalComment on above:Order Comment: No: Do not add to previous drawResult Comment: REFERENCE RANGES: 0.00 - 0.04 ng/ml NORMAL 0.05 - 0.50 ng/ml INDETERMINATE > 0.50 ng/ml CONSISTENT WITH AN M.I.Performed By: #### [id number] #### [facility] [address] [facility] [place] [address], UIBVUO7ek 17-27-3738NAW 3RD GENERATION3.28 uIU/mLNormal 0.34-5.60The [facility] Charles HospitalComment on above:Order Comment: No: Do not add to previous drawPerformed By: #### [id number] #### [facility] [address] [facility] [place] [address], USAURIC ACID BLOODon 29-18-3587Gfpso [Mass/Vol]7.1 mg/dLNormal 4.4-7.6The [facility] Charles HospitalComment on above:Performed By: #### [id number] #### [facility] [address] [facility] [place] [address], USAURINALYSIS REFLEXon 72-92-5119Nhzsukhthv (U)SL CLOUDY AbnormalCLEARThe St. Charles HospitalComment on above:Order Comment: Left Peural EffusionPerformed By: #### [id number] #### [facility] [address] [facility] [place] [address], USABilirubin Ql (U)NegativeNormalNEGATIVEThe St. Charles HospitalComment on above:Order Comment: Left Peural Effusion Performed By: #### [id number] #### [facility] [address] [place] [address], USAColor (U)YELLOWNormalYELLOWThe St. Charles HospitalComment on above:Order Comment: Left Peural EffusionPerformed By: #### [id number] #### [facility] [address] [place] [address], USAEPISFEWNormalFEW,OCC,NONE SEENThe St. Charles HospitalComment on above:Order Comment: Left Peural EffusionPerformed By: #### 07608 #### [facility] [address] [place] [address], USAGlucose Ql (U)>=500AbnormalNEGATIVEThe St. Charles HospitalComment on above:Order Comment: Left Peural EffusionPerformed By: #### 91245 #### [facility] [address] [place] [address], USAHemoglobin Ql (U)TRACEAbnormalNEGATIVEThe St. Charles HospitalComment on above:Order Comment: Left Peural Effusion Performed By: #### 59115 #### [facility] [address] [facility], [place] [address], USAKETONETRACEAbnormalNEGATIVEThe St. Charles HospitalComment on above:Order Comment: Left Peural EffusionPerformed By: #### 51720 #### [facility] [address] [place] [address], USALEUK ESTERNegativeNormalNEGATIVEThe St. Charles HospitalComment on above:Order Comment: Left Peural EffusionPerformed By: #### 49844 #### [facility] [address] [place] [address], USAMUCUS THREADSOCCAbnormalNONE SEENThe St. Charles HospitalComment on above:Order Comment: Left Peural EffusionPerformed By: #### 48610 #### [facility] [address] [place] [address], USANitrite Ql (U)NegativeNormalNEGATIVEThe St. Charles HospitalComment on above:Order Comment: Left Peural Effusion Performed By: #### [id number] #### [facility] [address] [place] [address], USApH (U)6.0 [pH]Normal5.0-8.0The St. Charles HospitalComment on above:Order Comment: Left Peural EffusionPerformed By: #### 47282 #### [facility] [address] [place] [address], USAProtein Ql (U)>=500AbnormalNEGATIVEThe St. Charles HospitalComment on above:Order Comment: Left Peural EffusionPerformed By: #### 93377 #### [facility] [address] [facility] [place] [address], USARBC0-2AbnormalNONE SEENThe [address] Charles HospitalComment on above:Order Comment: Left Peural EffusionPerformed By: #### 66750 #### [facility] [address] [facility] [place] [address], USASPEC GRAV1.586Achxkx2.015-1.020The St. Charles HospitalComment on above:Order Comment: Left Peural EffusionPerformed By: #### [id number] #### [facility] [address] [facility] [place] [address], USAWBC UA3-5AbnormalNONE SEENThe St[address] Charles HospitalComment on above:Order Comment: Left Peural EffusionPerformed By: #### 02545 #### [facility] [address] [facility] [place] [place] [address], [facility] Vital Signs Date TimeVital SignValuePerforming RzydaealeRrooezkk49-46-6463 12:54-0400Body mass index (BMI) [Ratio]27.9 kg/v6Xwbldg [employer] DO Work Phone: [facility] ([employer]) Csgirc53-59-1264 12:54-0400Body sqjncgbnbxo90.39 [degF]Colton [employer] DO Work Phone: [facility] Resixy90-52-4197 12:54-0400Body cqljay918.96 kgDennis Furlong DO Work Phone: [facility] HospitalFanbase10-21-2025 12:54-0400Diastolic blood ufczuifa56 mm[Hg]Colton Kiranlong DO Work Phone: [facility] ([employer]) Dpqxme29-43-0179 12:54-0400Heart rate 76 /minDennis Furlong DO Work Phone: [facility] Pmrifa85-66-2684 12:54-0400 Respiratory rate18 /minDennis Furlong DO Work Phone: [facility] HospitalFanbase10-21-2025 12:54-0420McI2% (BldA) [Mass fraction]97 %Colton Kiranlong DO Work Phone: [facility] HospitalFanbase10-21-2025 12:54-0400Systolic blood ehswweyx89 mm[Hg]Colton Kiranlong DO Work Phone: [facility] Waxkxi06-32-3983 22:49-0400Body mass index (BMI) [Ratio]29.27 kg/p2WogkrnColton Kiranlong DO Work Phone: [facility] HospitalFanbase10-14-2025 22:49-0400Body gwqkaxeqgpu51.39 [degF]Colton Kiranlong DO Work Phone: [facility] HospitalFanbase10-14-2025 22:49-0400Body ylgyyd842.09 kgDendain Kiranlong DO Work Phone: [facility] Hhrmfy80-68-3785 22:49-0400Diastolic blood urlznbsu88 mm[Hg]Colton Kiranlong DO Work Phone: [facility] HospitalFanbase10-14-2025 22:49-0400Heart rate 99 /Nannetteis Furlong DO Work Phone: [facility] Ipbyfu93-75-4920 22:49-0400 Respiratory rate18 /minDennis Furlong DO Work Phone: [facility] Bsrpve36-05-0447 22:49-9935JgP3% (BldA) [Mass fraction]96 %Colton Kiranlong DO Work Phone: [phone] Pdbktu60-53-6568 22:49-0400Systolic blood pfffsqyr222 mm[Hg]Colton Furlong DO Work Phone: [facility] Btdywr36-98-6465 12:12-0400Body mass index (BMI) [Ratio]27.85 kg/x9Yfttzx Qianalong DO Work Phone: [facility] Focxvl03-22-9791 12:12-0400Body qipdkyiwjbu57.9 [degF]Colton Kiranlong DO Work Phone: [facility] Ovehhl84-92-3535 12:12-0400Body .78 kgDendain Kiranlong DO Work Phone: [phone] Gwjlun95-04-7282 12:12-0400Diastolic blood rqpagjov55 mm[Hg]Colton Kiranlong DO Work Phone: [facility] Fphkey49-59-5102 12:12-0400Heart rate 92 /Lazaro Kiranlong DO Work Phone: [facility] Jboluh47-73-1198 12:12-0400 Respiratory rate18 /Nannetteis Qianalong DO Work Phone: [phone] Bhvueo16-16-6836 12:12-6084DoS3% (BldA) [Mass fraction]99 %Colton Kiranlong DO Work Phone: [facility] Bfylmb88-73-6069 12:12-0400Systolic blood gkulsyol77 mm[Hg]Colton Qianalong DO Work Phone: [facility] Zexnki93-13-9011 23:08-0400Body mass index (BMI) [Ratio]28.81 kg/d0Irlzpe Furlong DO Work Phone: [phone] Knghxn29-43-4051 23:08-0400Body cqiriqpdlom03.81 [degF]Colton Kiranlong DO Work Phone: [facility]Fanbase09-30-2025 23:08-0400Body aofqrm916.37 kgDennis Qianalong DO Work Phone: [facility]Fan[facility]09-30-2025 23:08-0400Diastolic blood mm[Hg]Colton Kiranlong DO Work Phone: [facility]09-30-2025 23:08-0400Heart rate 76 /Lazaro Kiranlong DO Work Phone: [facility]09-30-2025 23:08-0400 Respiratory rate18 /Lazaro Kiranlong DO Work Phone: [facility]09-30-2025 23:08-7132JxS3% (BldA) [Mass fraction]97 %Colton Kiranlong DO Work Phone: [facility]09-30-2025 23:08-0400Systolic blood qasbdfwi348 mm[Hg]Colton Kiranlong DO Work Phone: [facility]09-23-2025 21:28-0400Body uahkcz811 cmColton Kiranlong DO Work Phone: [facility] HospitalFanbase09-23-2025 21:28-0400Body mass index (BMI) [Ratio]29.9 kg/r3Zjcpcb Furlong DO Work Phone: [facility]Fan[facility]09-23-2025 21:28-0400Body zuiipbhabdt23.1 [degF]Colton Kiranlong DO Work Phone: [facility]Fan[facility]09-23-2025 21:28-0400Body atkpvb009.4 kgDendain Kiranlong DO Work Phone: [facility] HospitalFanbase09-23-2025 21:28-0400Diastolic blood utsiuvjj80 mm[Hg]Colton Furlong DO Work Phone: [facility] Zvbdfm93-75-4663 21:28-0400Heart rate 77 /minDennis Furlong DO Work Phone: [facility]09-23-2025 21:28-0400 Respiratory rate18 /minDennis Furlong DO Work Phone: [facility]09-23-2025 21:28-9287BdP0% (BldA) [Mass fraction]99 %Colton Furlong DO Work Phone: [facility]09-23-2025 21:28-0400Systolic blood hvfurrwl833 mm[Hg]Colton Furlong DO Work Phone: [facility]09-19-2025 13:22-0400Diastolic blood fzhwizer44 mm[Hg]Chino Elliott DPM Work Phone: 1(663)030-[address] [place], [place] 1842509-19-2025 13:22-0400 Heart rate80 /minter [facility] DPM Work Phone: [phone]09-19-2025 13:22-0400 Respiratory rate20 /minPeter [facility] DPM Work Phone: 1(383)322-[address] [place], [place] 1842509-19-2025 13:22-0400 SaO2% (BldA) [Mass fraction]100 %Chino Elliott DPM Work Phone: 1(305)217-[address] [place], [place] 1842509-19-2025 13:22-0400 Systolic blood xkixjzxc29 mm[Hg]Chino Elliott DPM Work Phone: 1(499)377-[address] [place], [place] 1842509-19-2025 09:10-0400 Body anmtxesrrjm92.8 [degF]Chino Elliott DPM Work Phone: 1(361)612-[address] [place], [place] 1842509-19-2025 05:33-0400 Body cwiuxz604.9 kgPetracy Broaddus Hospitalharish DPM Work Phone: 1(249)433-[address] [place], [place] 1842509-18-2025 13:33-0400 Body oovypg595.04 cmPeter Highlander DPM Work Phone: 1(871)[address] [place], [place] 2183509-03-2025 14:32-0400 Body oyjwruhosgu10.3 [degF]Chino Elliott DPM Work Phone: 1(657)[address] [place], [place] 2183509-03-2025 14:32-0400 Diastolic blood uwilsdes29 mm[Hg]Chino Elliott DPM Work Phone: 1(512)[address] [place], [place] 2183509-03-2025 14:32-0400 Heart rate80 /minPeter Highlander DPM Work Phone: 1(458)[address] [place], [place] 2183509-03-2025 14:32-0400 Respiratory rate18 /minPeter Highlander DPM Work Phone: 1(142)[address] [place], [place] 2183509-03-2025 14:32-0400 SaO2% (BldA) [Mass fraction]100 %Chino Elliott DPM Work Phone: 1(066)[address] [place], [place] 2183509-03-2025 14:32-0400 Systolic blood kgokvfyc815 mm[Hg]Chino Elliott DPM Work Phone: 1(982)[address] [place], [place] 2183509-03-2025 06:00-0400 Body johdqw953.2 kgPeter Highlander DPM Work Phone: 1(064)[address] [place], [place] 2183508-28-2025 12:55-0400 Body tbixul948.04 cmPeter Highlander DPM Work Phone: 1(782)[address] [place], [place] 2183508-28-2025 10:07-0400 Inhaled oxygen flow rate7 L/minPeter Highlander DPM Work Phone: 1(542)[address] [place], [place] 2183510-31-2024 11:25-0400 Body kkyvsa391 cmNima Lee MD Work Phone: [facility]10-31-2024 11:25-0400Body mass index (BMI) [Ratio]28 kg/r5IlxixcvNima Lee MD Work Phone: [facility]10-31-2024 11:25-0400Body whzcgekdchr01.11 [degF]Nima Lee MD Work Phone: 1(098)[facility] Cawnzt35-93-2528 11:25-0400Body crlasd517.33 kgNima Lee MD Work Phone: 1(779)[facility] Szfted96-53-5643 11:25-040Diastolic blood fwffevys07 mm[Hg]Nima Lee MD Work Phone: 1(522)[facility] Vjlrxl17-22-7274 11:25040Heart rate 78 /minNima Lee MD Work Phone: 1(650)[facility] Pfrxxt83-59-6333 11:8586KlQ6% (BldA) [Mass fraction]98 %Nima Lee MD Work Phone: 1(890)[facility] Jibvcm44-29-1217 11:25-040Systolic blood gnolrrvt290 mm[Hg]Nima Lee MD Work Phone: 1(882)[facility] Rlyjmr64-19-0053 15:40-0500Body puuohm125.04 cmEtim Pollack Other [facility] Other 11-23-2021 15:40-0500Body mass index (BMI) [Ratio] 39.02 kg/m3IzkkeKike Pollack Other [facility] Other 11-23-2021 15:40-0500Body skflfwyznpd83.8 [degF]Kike Pollack Other [facility] Other 11-23-2021 15:40-0500Body ldatls113.42 kgKike Pollack Other [facility] Other 11-23-2021 15:40-0500Diastolic blood qrxigccb73 mm[Hg] Kike Pollack Other [facility] Other 11-23-2021 15:40-0500Respiratory rate18 /Sherrell Pollack Other [place] [employer] Other 11-23-2021 15:40-7908ZjR3% (BldA) [Mass fraction]96 % Kike Pollack Other [place] [employer] Other 11-23-2021 15:40-0500Systolic blood mm[Hg] Kike Pollack Other [place] [employer] Other 04-29-2021 12:24-0400Heart rate82 /minCharles Valone Work Phone: [phone]04-29-2021 12:24-0400 Respiratory rate20 /minCharles Valone Work Phone: 0(119)045-[address] [place], [place] 0327304-29-2021 11:17-0400 Body zhylucsktyr87.7 [degF]Jose Valone Work Phone: 5(292)986-[address] [place], [place] 0327304-29-2021 11:17-0400 Diastolic blood mm[Hg]Jose Valone Work Phone: 5(831)770-[address] [place], [place] 0327304-29-2021 11:17-0400 SaO2% (BldA) [Mass fraction]96 %Jose Valone Work Phone: [phone]04-29-2021 11:17-0400 Systolic blood yllcwfnq335 mm[Hg]Jose Valone Work Phone: [phone])837-71[facility]04-29-2021 06:00-0400 Body orwxyp910.5 kgCharles Valone Work Phone: [facility]04-23-2021 14:17-0400 Body .04 cmCharles Valone Work Phone: [phone]04-22-2021 21:22-0400 Body .04 cmCharmeenu Juarez Work Phone: 1(518)346-[address] [place], [place] 0327304-22-2021 21:22-0400 Body mass index (BMI) [Ratio]43.8 kg/n8Rewgnev Valone Work Phone: 1(909)941-[address] [place] [address]-22-2021 21:22-0400 Body ujxardsvmtb26.6 [degF]Jose Juarez Work Phone: 1(231)882-[address] [place] [address]-22-2021 21:22-0400 Body uxokry481.3 kgCharmeenu Valnikolya Work Phone: 1(557)816-[address] [place] [address]-22-2021 21:22-0400 Diastolic blood degbkxcm06 mm[Hg]Jose Juarez Work Phone: 1(384)656-[address] [place] [address]-22-2021 21:22-0400 Heart ryry588 /minJenniferrmeenu Valone Work Phone: [phone])335-[address] [place] [address]-22-2021 21:22-0400 Respiratory rate18 /minJenniferrmeenu Valnikolay Work Phone: 1(248)628-[address] [place] [address]-22-2021 21:22-0400 SaO2% (BldA) [Mass fraction]94 %Jose Juarez Work Phone: 1(116)644-[address] [place] [address]-22-2021 21:22-0400 Systolic blood mm[Hg]Jose Juarez Work Phone: 1(786)208-[address] [place] [address] Encounters Encounter DateEncounter TypeCare ProviderFacilityStart: 02-17-2025 End: 16-96-4865bntrqagvovXtjowr G Furlong DO Work Phone: [facility] - Family MedicineComment on above:Type 2 diabetes mellitus with diabetic neuropathy, with long-term current use of insulin ([facility]) (Primary Dx); End stage renal disease ([facility]); Hemodialysis-associated hypotension; Acquired absence of left foot (CMS-HCC); Acquired absence of right foot (CMS-HCC)Start: 02-16-2025 End: 55-25-5148dgiordlexvZbmpvu G Furlong DO Work Phone: [facility] Medicine - Family MedicineComment on above:Type 2 diabetes mellitus with diabetic neuropathy, with long-term current use of insulin ([facility]) (Primary Dx); End stage renal disease ([facility]); Dependence on renal dialysis; Hemodialysis-associated hypotensionStart: 02-02-2025 End: 24-87-6277vvdfnyzmgzYqcljt G Furlong DO Work Phone: [facility] Medicine - Family MedicineComment on above:Type 2 diabetes mellitus with diabetic neuropathy, with long-term current use of insulin ([facility]) (Primary Dx); Unspecified trochanteric fracture of right femur, subsequent encounter for closed fracture with routine healing; Nausea; Acquired absence of left foot (CMS-HCC); Acquired absence of right foot ([facility]); End stage renal disease ([facility])Start: 02-01-2025 End: 17-96-8962mhzywvzscxYqiorteRosibel Juarez JR Work Phone: [facility] Work Phone: Start: 02-01-2025 End: 22-81-8541Fvpwnib encounter procedureWilfrido Montez DO-[facility] [place] Work Phone: Start: 01-26-2025 End: 23-64-8586mjmkfepnjlWprpza G Furlong DO Work Phone: [facility] Internal Medicine - Family MedicineComment on above:Unspecified trochanteric fracture of right femur, subsequent encounter for closed fracture with routine healing (Primary Dx); Type 2 diabetes mellitus with diabetic neuropathy, with long-term current use of insulin ([facility]); End stage renal disease ([facility]); Acquired absence of right foot (CMS-HCC); Acquired absence of left foot (CMS-HCC)Start: 01-19-2025 End: 48-31-3199gvusiaxixmFepokd G Furlong DO Work Phone: [facility] Internal Medicine - Family MedicineComment on above:Unspecified trochanteric fracture of right femur, subsequent encounter for closed fracture with routine healing (Primary Dx); Chronic obstructive pulmonary disease, unspecified COPD type ([facility] End stage renal disease ([facility]); Dependence on renal dialysis; Peripheral vascular disease, unspecified; Acquired absence of left foot ([facility]); Acquired absence of right foot ([facility]); Type 2 diabetes mellitus with diabetic neuropathy, with long-term current use of insulin ([facility]); Hyperlipidemia, unspecified hyperlipidemia type; Gastroesophageal reflux disease, unspecified whether esophagitis present; Psoriasis, unspecifiedStart: 17-07-7411Tdi-patient / Non-visitClayton Cardenas MD- [facility] Work Phone: Start: 77-48-1674Mpk-patient / Non-visitAleta Jensen APRN-[facility] Work Phone: Start: 97-35-8731Chy-patient / Non-visitClayton Cardenas MD-[facility] Work Phone: Start: 12-30-2024 End: 53-93-6721Nfhuasxoyr and management of inpatientCharles L Valone Facility:[facility]: 89-25-2622Cue-patient / Non-visitRaimundo Mcclure MD-[facility] Work Phone: Start: 65-19-7983Oxfubui encounter statusChino Elliott DPM Work Phone: [facility] Centertart: 40-86-7012Gjp- patient / Non-visitAri Batista MD-[facility] Work Phone: Start: 93-49-8681Tvgkbbi encounter statusAri Batista MDUniversity Hospitals Cleveland Medical Centertart: 72-23-4318Skfjtnrbx for preprocedural cardiovascular examinationPhillip Aiken [facility] Phys[facility] GroupStart: 12-23-2024 End: 50-28-4720Clrygzqgie and management of inpatientAndrei Celia Facility:[facility]art: 10-26-2024 End: 70-88-6674sxqkpylzfeUgfkxMet[facility] Work Phone: Start: 10-26-2024 End: 56-06-0321Zsvrdxxd [facility]erredEn[facility] D[facility] [place]-[facility] [place] HospStart: 08-28-2024 End: 22-91-0465jelcouxpbyJzaixMetroHealth [facility] Work Phone: Start: 08-28-2024 End: 59-77-2073Fhdwzhwt ReferredEncompass Health [facility] DPM Work Phone: [facility] [place] HospStart: 02-27-2024 End: 04-91-6267Grboiq outpatient visit 25 minutesMohamed Malik Lee MD Work Phone: [facility] Vascular SurgeryComment on above:Critical limb ischemia of left lower extremity with gangrene ([facility]) (Primary Dx)Start: 02-17-2024 End: 27-11-6945btelvlmpqhQCLQJWF L VALONE JRProMedica Sapelo Island HospitalStart: 01-20-2024 End: 78-42-9501crjhgjpggsLTJYOFZ L VALONE JRProMedica Sapelo Island HospitalStart: 12-16-2023 End: 97-87-1161avnrktejddLPXFAFC L VALONE JRProMedica Sapelo Island HospitalStart: 11-19-2023 End: 40-00-3217zmoqbellueQGMLIQV L VALONE JRProMedica Pleasant City HospitalStart: 11-19-2023 End: 84-00-6017Pzryfpybo Result EncounterAjay Archer MD Work Phone: [facility] External Department UnsolicitedStart: 11-19-2023 End: 70-27-7803Kjxdlspke Result EncounterAjay Archer MD Work Phone: [facility] External Department UnsolicitedStart: 10-23-2023 End: 28-07-9436giqrdfeoehHCFDQCA L VALONE JRProMediPemiscot Memorial Health Systems HospitalStart: 09-03-2023 End: 44-54-9920njtuhomijoHIVQPIA Anmol JUAREZ JRProMedica [facility] HospitalStart: 07-31-2023 End: 73-68-4581bdywfppvksDIUFYNS Anmol JUAREZ JRProMediP[facility]isc[facility] Systems HospitalStart: 07-02-2023 End: 12-16-7351dhoiggmufcDIQALZK Anmol JUAREZ JRProOhio[facility] Centerca [facility] HospitalStart: 06-04-2023 End: 37-83-8013skayoofgreFVSUOUR Anmol JUAREZ JRProMedica [facility] HospitalStart: 05-31-2023 End: 22-24-4283aqkqeqzdgtPPRVD RALOFSKYMercy Opal HospitalStart: 05-06-2023 End: 78-03-4146czpbtmrdyqNZMPHPQ Anmol JUAREZ [facility] HospitalStart: 04-19-2023 End: 20-28-4902mahaffugllUGDHT D [facility] HospitalStart: 02-27-2023 End: 24-78-6888dyfhlbtcixUZPYR D [facility] HospitalStart: 09-11-2022 End: 34-20-3982jikxmdxyjqVHTEA D [facility]:D5Qtbid: 08-28-2022 End: 52-57-6421gmkjznwoodCGWUE D [facility]ENTERFac[facility]:T1Fxqlm: 08-24-2022 End: 69-88-5907mikckwaciaEW CHARLES VALONEFacility:P2Vzdvd: 08-20-2022 End: 52-55-4050sitytcmxbgQGOctavio JUAREZFacility:B3Etxyh: 89-86-2156Bnkdhfcxt for preprocedural cardiovascular examinationPETER D [facility] HospitalStart: 19-64-4261Aogcgrzey for preprocedural laboratory examinationPETER D [facility] HospitalStart: 41-60-8224Yvvvwcnul for preprocedural respiratory examinationPETER D [facility] HospitalStart: 08-15-2022 End: 28-87-4514ajswydtcitDB CHARLES VALONEFacility:E1Qjneu: 08-15-2022 End: 75-01-4790Azjphaekt for preprocedural laboratory examinationDR JOSE VALONEFacility:M3Kuhit: 07-31-2022 End: 69-86-9652wltwetbrwrJE JOSE VALONEFacility:H1Wltaz: 07-13-2022 End: 85-58-5402ydwqoefczbGS JOSE VALONEFacility:L6Kfngd: 06-21-2022 End: 19-02-7657mpiluxpzfuAS JOSE VALONEFacility:X5Geuas: 85-76-5796nelnguhxzs DR CARLOS EDUARDO SU .Facility:B4Wdrmz: 06-06-2022 End: 63-45-3013jclysbaehnBR JOSE VALONEFacility:G3Fvixf: 05-28-2022 End: 87-94-6614jnlrhcialzDK JOSE VALONEFacility:D0Igrst: 05-07-2022 End: 48-21-9178vsknnhufmwWR JOSE VALONEFacility:P4Xjdug: 04-09-2022 End: 81-59-7733sktohikpeyUM JOSE VALONEFacility:A5Elnqj: 03-26-2022 End: 61-31-9000mwspxtcbmlGE JOSE VALONEFacility:E1Xabzu: 03-13-2022 End: 66-24-0762hjebrgylwmPT JOSE VALONEFacility:W8Mgsbw: 03-02-2022 End: 52-44-5476medpgatbimZD JOSE VALONEFacility:G8Plxao: 03-01-2022 End: 05-16-3367rbxcqwicmrPC CARLOS EDUARDO S NIMESH .Facility:Z6Owldx: 02-23-2022 End: 78-27-8407uklcqbgcxpGH JOSE VALONEFacility:C4Xuueq: 02-16-2022 End: 50-14-6869wfyvitzhypSH JOSE VALONEFacility:Q4Tdscc: 02-09-2022 End: 18-36-2861psbaceqnroWQ JOSE VALONEFacility:X9Fkorg: 02-02-2022 End: 65-87-6613miinzrgjzkLSKON D HIGHLANDERFacility:X0Bfkha: 01-26-2022 End: 79-81-1349xsfuyrhhcyKBLHR D HIGHLANDERFacility:Q2Yholl: 01-18-2022 End: 21-48-5154fcutcxvkilKPMMH D HIGHLANDERFacility:C8Jpurs: 01-15-2022 End: 92-74-4774gcxldlvynnVDEAS D HIGHLANDERFacility:U9Mulaf: 01-12-2022 End: 80-28-5627lbtafkbwnpKFSTV D HIGHLANDERFacility:D5Raevo: 01-10-2022 End: 76-96-4188nljofxafhaDFIBN D HIGHLANDERFacility:I7Ggkpk: 01-02-2022 End: 96-18-8084bfobuorbxnZJZIO D HIGHLANDERFacility:C4Wsoaa: 12-25-2021 End: 20-83-5622rycbveieayHVZQZ D HIGHLANDERFacility:P1Qamel: 12-21-2021 End: 02-28-5780pkmttsznbkLNPQZZ H FAWWADFacility:B4Fzsat: 12-18-2021 End: 87-26-3464lmlidkrgxiDJPMS D HIGHLANDERFacility:K1Shjzk: 12-15-2021 End: 26-98-8030ncweslmkobPUNTB D HIGHLANDERFacility:P5Zxckg: 12-11-2021 End: 62-33-3165bagzesoqtpPQOJW D HIGHLANDERFacility:Q3Crpar: 11-30-2021 End: 03-77-0443efgvppfuqsSS CARLOS EDUARDO S SU .Facility:U4Mqoja: 11-22-2021 End: 75-42-9714xzftnxpzalGL CARLOS EDUARDO S SU .Facility:O1Zymwc: 11-21-2021 End: 20-20-1357oowlsgnsrwNHLBO D HIGHLANDERFacility:W5Rgfzl: 11-14-2021 ambulatoryDR CARLOS EDUARDO S SU .Facility:I2Qhqtz: 11-13-2021 End: 57-49-1919bmtdlkfpqvUMBWB D HIGHLANDERFacility:M8Xcnyd: 11-07-2021 End: 80-37-1186yttemnxzftLFWHE D HIGHLANDERFacility:H8Ieyor: 10-31-2021 End: 49-79-8321askcmhpgjuOHJBZ D HIGHLANDERFacility:V6Irzrv: 10-24-2021 End: 30-28-0303bdihtlunmxSCDQQ D HIGHLANDERFacility:K8Kassg: 10-17-2021 End: 14-07-1241jkfinnzlpwPARXT D HIGHLANDERFacility:X9Mbijh: 10-09-2021 End: 36-03-9705zmitzmvhxvFZIVL D HIGHLANDERFacility:A7Dquvm: 03-21-2021 End: 11-04-3421pupvopuyfkNqhyn Elashi Other [facility] Eg[facility] Other Start: 40-96-0573Tlehyt outpatient visit 25 minutes Essmani PollackFPG NephrologyStart: 10-20-2020 End: 13-14-5117fjqniiisrpHVPYSOY PROVIDERFacility:METROHealthStart: 09-28-2020 End: 25-02-1773Fficmqn encounter procedureCharles Valone Work Phone: [phone]-Qdjfavqmiev TherapyStart: 09-06-2020 End: 59-76-1608Pjxjtdf encounter procedureCharles Valone Work Phone: [phone]-GhpdopnsnmgxrdljokRuxtu: 08-18-2020 End: 67-11-7284Sykwshybcu and management of inpatientCharles Valone Work Phone: [phone] [facility] ProgressiveStart: 07-13-2020 End: 37-90-2671Iycndxhnxm and management of inpatientSARMED MANSURFacility:[facility] Procedures DateProcedureProcedure DetailPerforming ClinicianStart: 46-63-5499Pslyxhpe screenPeter HighlanderComment on above:Result Comment: PERFORMED BY: [facility] [address] [place] [address] PATHOLOGIST FIRE APPARATUS ENGINEER CARLOS BIRMINGHAM M.D.Start: 54-93-7066FN VENOUS DOPPLER LE [facility] Charis SIGALA Work Phone: Start: 08-35-8717Lvivxipitouc [Mass/volume] in Urine by Test stripNima Lee MD Work Phone: [phone]: 03-07-4756HX thoracic spine wo conCharles Valnikolay Work Phone: Start: 94-93-0365KW abdomen pelvis wo conCdevendra CanalesYopima Work Phone: Start: 52-20-2086CW chest wo conCdevendra CanalesYopima Work Phone: Start: 77-43-6196Kgfulbawerbhwxn of bilateral kidneys Jose CanalesYopima Work Phone: Start: 08-19-2020 End: 07-78-5951Jjjowcz microbial cultureCharmeenu CanalesYopima Work Phone: Start: 46-33-3666Bjpzluvpkedki of transfusion reaction Jose CanalesYopima Work Phone: Start: 79-68-8825Hsjjn chest X-rayCharmeenu CanalesYopima Work Phone: Start: 01-79-2077Zfrrw culture for bacteria, including anaerobic screenCharmeenu CanalesYopima Work Phone: Start: 42-20-1350Zwawinydumx Panel (PCR)Jose CanalesYopima Work Phone: Start: 35-16-5111FACPDWVN OF L PLEURAL CAV WITH DRAIN DEV, PERC ENDO APPROACHMOHAMED OMBALLIStart: 05-35-7733LVXFFJWM OF LEFT PLEURA, PERC ENDO APPROACH, DIAGNMOHAMED OMBALLIStart: 03-73-8694LUAFCKJMN OF OTH THERAP SUBST INTO RESP TRACT, VIA OPENINGMOHAMED OMBALLIStart: 33-70-0502WRZJCSI LEFT PLEURA, PERCUTANEOUS ENDOSCOPIC APPROACHMOHAMED OMBALLIStart: 50-93-8684ZQAIMXNR OF LEFT PLEURAL CAVITY, PERC APPROACH, DIAGNMOHAMED OMBALLIStart: 07-15-2020 DRAINAGE OF LEFT PLEURAL CAVITY, PERCUTANEOUS APPROACHMOHAMED OMBALLIStart: 09-91-5790NTZWLOYR OF LEFT PLEURAL CAVITY, PERCUTANEOUS APPROACHMOHAMED OMBALLI Start: 43-30-7911EHRMTAKWGXPXSUM OF RIGHT AND LEFT HEART, MARY ANN [place] Plan of Treatment DateCare ActivityDetailAuthorStart: 42-32-8026DEfU,Tdap and Td Vaccines (2 - Td or Tdap)DTaP,Tdap and Td Vaccines (2 - Td or Tdap)[facility] SystemStart: 60-86-3286Rgwhm BMI ScreeningAdult BMI ScreeningAvita Health System [facility] SystemStart: 01-67-3941Sskjr BMI ScreeningAdult BMI ScreeningProMarymount Hospital SystemStart: 35-39-3538Axczy BMI ScreeningAdult BMI ScreeningProMarymount Hospital SystemStart: 95-23-1986Qnzrd BMI ScreeningAdult BMI ScreeningProMarymount Hospital SystemStart: 21-72-3608Dxojqzi ScreeningTobacco ScreeningProMarymount Hospital SystemStart: 81-78-1387Nsxghlvls aortic aneurysm screeningAbdominal Aortic Aneurysm (AAA) ScreenProMarymount Hospital SystemStart: 50-09-9321Qwfa Risk ScreeningFall Risk ScreeningAvita Health System [facility] SystemStart: 01-15-2025 End: 55-12-1471GjdxiinxlOhio State Health System CenterStart: 63-58-4122RbcopvlixOhio State Health System CenterStart: 78-82-6880Guhkhlln to nephrologistOhio State Health System CenterStart: 62-03-7165Rbmoasvi admissionOhio State Health System CenterStart: 27-09-6128Hrptixjx to clinical allergistOhio State Health System CenterStart: 60-74-6712MpurdespyOhio State Health System CenterStart: 34-74-9286VUSJD-19 Vaccine ( season)COVID-19 Vaccine ( season)[facility] SystemStart: 44-95-5949Axemnlzqk vaccinationInfluenza VaccineAvita Health System [facility] SystemStart: 41-51-4852Nyresgut to rehabilitation physicianOhio State Health System CenterStart: 40-14-9327Lstwhdhf to vascular surgeonOhio State Health System CenterStart: 28-38-8641Tvreedmt to nephrologistOhio State Health System CenterStart: 78-10-6890Itmhccuidkin [facility] CenterStart: 10-35-4593Vufgffqc admissionOhio State Health System CenterStart: 46-93-2399FrrmtxttpOhio State Health System CenterStart: 30-83-3456PmuvubbjaOhio State Health System CenterStart: 96-82-6685Gdqyl screening for proteinUrine MicroalbuminParkview Health KDPOF SystemStart: 02-27-2024 End: 18-65-0116GK.doppler Extremity arteries - bilateral for physiologic artery studyVas art doppler lwr bilat mult lev/PVR Vascular Ultrasound Routine Critical limb ischemia of left lower extremity with gangrene (CMS-HCC) Expected: 02/27/2024, Expires: 02/26/2025[facility] Work Phone: Comment on above:Expected: 02/27/2024, Expires: 02/26/2025Start: 47-76-9167RGCZQ-19 Vaccine ( season)COVID-19 Vaccine ( season)[facility] KDPOF SystemStart: 01-05-2746Mlhhzjpez vaccinationInfluenza VaccineAvita Health System [facility] SystemStart: 50-76-9952Fsujkmbs identified in Blood by CultureBlood CultureOhio State Health System CtrStart: 69-53-5157CYJ ( or age 60+ yrs) (1 - Risk 60-74 years 1-dose series)RSV ( or age 60+ yrs) (1 - Risk 60-74 years 1-dose series)[facility] KDPOF SystemStart: 66-77-8565Grgkvbseicfgtm of varicella zoster vaccineZoster (Shingles) Vaccine (1 of 2)[facility] KDPOF SystemStart: 25-63-8118Fbnql BMI Follow Up PlanAdult BMI Follow Up PlanAvita Health System [facility] SystemStart: 02-04-1978 Adult BMI ScreeningAdult BMI ScreeningAvita Health System [facility] SystemStart: 02-04-1978 Diabetic foot examinationDiabetic Foot ExamAvita Health System [facility] SystemStart: 92-30-3956Lfdeeybhzf ScreeningDepression ScreeningAvita Health System [facility] SystemStart: 33-29-6305Udsxmsy ScreeningTobacco ScreeningAvita Health System [facility] SystemStart: 63-42-2866Pybqjrku screeningDiabetic Ophthalmology ExamAvita Health System [facility] System Start: 87-18-4199Wgarpe Use: CardiovascularStatin Use: CardiovascularParkview Health Health SystemStart: 17-12-2870Sadmab Use: DiabeticStatin Use: DiabeticParkview Health Health SystemAnion gap measurementTrumbull Regional Medical CenterErythrocyte distribution width [Ratio] by Automated countOhio State Health System Center Erythrocytes [#/volume] in Mercy HealthGlomerular filtration rate [Volume Rate/Area] in Serum, Plasma or Blood by Creatinine [facility] CenterHematocrit [Volume Fraction] of [facility]cy HealthHemoglobin [Mass/volume] in [facility] HealthLeukocytes [#/volume] corrected for nucleated erythrocytes in Blood by Automated [facility] HospitalMCH [Entitic mass] by Automated [facility] CampusMCHC [Mass/volume] by Automated [facility] CampusMCV [Entitic volume] by Automated count [facility] CenterPatient referralToledo Hospital Platelet mean volume [Entitic volume] in Blood by Automated [facility] CampusPlatelets [#/volume] in [facility] HealthXR Hip - right 2 [facility] HospitalXR Wrist - right GE [facility] Immunizations Immunization DateImmunizationNotesCare XkgimlatYpyfutbc95-47-1996ofbtclpyd virus vaccine, unspecified formulationNima Lee MD Work Phone: [facility]10-15-2017tetanus toxoid, reduced diphtheria toxoid, and acellular pertussis vaccine, adsorbedMoyung Lee MD Work Phone: [facility] Medical CenterNiewxb26-50-0447mcettsydq, seasonal, injectableEssam Jaki Other [facility]01-29-2016 pneumococcal polysaccharide vaccine, 23 valentEssam Jaki Other [facility] Payers DatePayer CategoryPayerPolicy [id number] Cross Blue ShieldBCBS Member Subscriber Plan / Payer (Effective 2017- Present) Name: Rashard Lyman Relation to Subscriber: Spouse Name: TORRES LYMAN Date of : 1964 Address: [address] [place] [address] Payer ID: Not on file Type: Not on file Address: [address] [place] [id number] [facility] Care - OtherANTHEM 1.2.840.361141.1.13.424.2.7.9.735877.[id number] 2..1.196386.3.579.2.18720-63-5049Txipaui791273907 2..1.134000.3.579.2.64726-54-6179Zcvsyer2319519 2..1.005333.3.579.2.55999-73-3740Obaucvw5386536 2..1.655393.3.579.2.19878-94-5007Yhilwcw6202650 2..1.629881.3.579.2.57544-60-4360Gxlkvlw0444122 2..1.570867.3.579.2.30866-42-5730Iweczwt2135792 2.16.840.1.225174.3.579.2.86193-38-9709Vxgvqzk1902541 2.16.840.1.820251.3.579.2.14346-37-0290Glpkoxu4058976 2.16.840.1.352366.3.579.2.10664-00-2562Xpbcwhy4956710 2.16.840.1.131586.3.579.2.32235-93-2841Raocmlm2766308 2.16.840.1.523258.3.579.2.76972-58-3436Vkuqbyq0666114 2.16.840.1.402906.3.579.2.01800-47-3116Gghyoba8427198 2.16.840.1.068427.3.579.2.16748-75-8312Xinjkee9816428 2.16.840.1.892720.3.579.2.36951-26-3254Vztwxev9770128 2.16.840.1.360297.3.579.2.18112-49-2536Qijhbwm3931810 2.16.840.1.244088.3.579.2.51802-23-0191Cwqvdvu2821337 2.16.840.1.282092.3.579.2.71443-98-5966Hynzltr9787812 2.16.840.1.050594.3.579.2.59620-76-4958Akrtmpv3398402 2.16.840.1.303048.3.579.2.26824-30-6942Kjnipig5603319 2.16.840.1.278882.3.579.2.35533-96-0294Ellgaie5128006 2.16.840.1.526640.3.579.2.66447-64-4783Ydjjnsi6901821 2.16.840.1.953842.3.579.2.09313-83-8170Elsfbeg6102698 2.16.840.1.059081.3.579.2.67137-04-9389Xahsdsh9402211 2.16.840.1.306565.3.579.2.36137-45-2198Uerqjwd1113944 2.16.840.1.740429.3.579.2.47697-39-4303Hnroxqm5323833 2.16.840.1.605065.3.579.2.66618-36-7145Oudhdmw1705528 2.16.840.1.509197.3.579.2.19069-18-4202Uspexwp6769102 2.16.840.1.769040.3.579.2.01656-38-8117Xrikart3129420 2.16.840.1.242445.3.579.2.09983-12-0028Zllrlvy9082733 2.16.840.1.273835.3.579.2.32050-40-3939Ilkcokb6268492 2.16.840.1.329462.3.579.2.00958-50-4938Ccqenwc2166140 2.16.840.1.986481.3.579.2.68903-16-1777Xdlyknb1384267 2.16.840.1.049931.3.579.2.79881-56-0085Tzkwyxi6417859 2.16.840.1.943859.3.579.2.27175-03-9243Utjdrgt5656552 2.16.840.1.003307.3.579.2.69697-83-8870Qcmaajy4006296 2.16.840.1.988330.3.579.2.72594-71-7359Hhiwgqt2183814 2.16.840.1.738701.3.579.2.23244-02-6230Ehlibtd4074852 2.16.840.1.761092.3.579.2.67272-50-7261Veoqprx7857906 2.16.840.1.484634.3.579.2.19165-42-4929Hzusjoc8041938 2.16.840.1.052421.3.579.2.82783-53-8987Dyiledd4897960 2.16.840.1.860900.3.579.2.26444-72-5971Sjfanyn5387385 2.16.840.1.021985.3.579.2.85781-79-6689Smautza9378067 2.16.840.1.093356.3.579.2.26876-04-4096Dzvofgp8711354 2.16.840.1.232117.3.579.2.61573-56-4425Zqhccgd4681702 2.16.840.1.735403.3.579.2.21283-58-7521Srlnzcs8765818 2.16.840.1.786160.3.579.2.76422-47-2231Qiaiuvm82306710 2.16.840.1.066857.3.579.2.184810-02-7780Zdmnfgh52061190 2.16.840.1.050687.3.579.2.999718-02-7012Wfukggc56752648 2.16.840.1.869731.3.579.2.003925-64-5492Dukalga62165965 2.16.840.1.620881.3.579.2.963651-28-5006Vpgnujt38486432 2..840.1.195914.3.579.2.162084-35-9178Ytcuptf00456389 2..0.1.441207.3.579.2.653430-37-6897Mdcmces38024696 2..840.1.013053.3.579.2.330121-77-1489Czewayc37485993 2..0.1.978600.3.579.2.768454-84-0396Vqefzyi37257223 2..0.1.940872.3.579.2.033596-55-0051Fpvobta6089708 2..840.1.874518.3.579.2.395156-62-9167Nybfogy6273117 2..1.598456.3.579.2.555847-11-0693OqdqkzlUDG506Z94997 7f989e3c-7959-4708-b0f6-e1668f091ab0MedicareSelf [id number] 13660e6a-14b9-4403-8b8c-1460[id number] 97re926f-655j-51z4-gf10-2m67je917od3Bldwpwo99323845 2..1.646240.3.579.2.286Movnuce22381677 2..1.897799.3.579.2.531 Social History DateTypeDetailFacilityTobacco smoking status NHISUnknown if ever smokedOhio State Health System CtrStart: 13-81-8236Irm Assigned At [facility] CenterStart: 65-90-3121Skcavcc smoking status NHISUnknown if ever smokedNOMS HealthcareStart: 72-10-5253Pihpvsm smoking status NHISNever smoked tobacco (finding)[facility] Centertart: 06-09-2020 End: 82-22-1833Cvz Assigned At BirthPhoenix Egoscue Other Start: 02-10-2017 End: 00-21-7089Xipxcxm smoking status NHISEx-smokerUniversity Hospitals Samaritan Medical Center End: 61-17-5584Tsfffvn of tobacco useCurrent smokerUniversity Hospitals Samaritan Medical Center End: 47-58-4303Dabxouw of tobacco useCigarette SmokerAv[facility] Start: 05-64-7980Tjkystj use and exposureSmokeless tobacco non-userAvita Health System [facility] SystemStart: 62-35-5517Pzulngrmy beverage intakeCurrent non-drinker of alcohol (finding)[facility] Hospitaltart: 06-09-2020 End: 67-23-8363Zhdeolv of Social functionAvita Health System [facility] SystemStart: 15-97-2489GypgvdeuxKslgajaHmoVhldoh Health SystemStart: 92-14-9223Yhi assigned at birthNot on fileAvita Health System [facility] Hospital SystemStart: 12-02-2014 End: 68-16-7725VlgDxtc (finding)[facility] Hospitaltart: 25-89-7746XVDS Follow upSDOH Follow upToledo Hospital Work Phone: Medical Equipment Procedure CodeEquipment CodeEquipment Original TextEquipment IdentifierDates ORIF, hipOrthopaedic fixation plate, non-bioabsorbable, sterile ()[id number] FDAStart: 25-28-5156RNAZ, hipOrthopaedic bone screw, non- bioabsorbable, non-sterile()[id number] FDAStart: 46-98-2069RKIP, hip Orthopaedic bone screw, non-bioabsorbable, non-sterile()[id number] FDA Start: 21-52-7982PPPW, hipOrthopaedic bone screw, non-bioabsorbable, non-sterile ()[id number] FDAStart: 58-85-4505JNGM, hipOrthopaedic bone screw, non- bioabsorbable, non-sterile()[id number] FDAStart: 33-32-0615RYBU, hipFemur nail, sterile()[id number] FDAStart: 87-43-4753OLXG, hipSpiral blade()[id number] FDAStart: 12-24-2024 Goals DatePatient GoalDesired Activity/State Functional Status ZgmdLpsurswtjeLwjdnuOgyomfpa21-46-6391Tpjrvprmeh statusPatient at Baseline [facility] Mental Status KuxkLalzbjzzebEuuwdePkgfktbu00-41-3254Gvtchssqu functionCognitive Status Patient at BaselineToledo Hospital Clinical Notes 07-15-2020 to 02-17-2025 Note Date & RcdlYmsbDxrpeuks53-24-2058 History of Present illness Narrative* Colton Kiransteven, DO - 02/17/2025 11:59 PM EDT Patient Name: Rashard Lyman Date of : 1960 Date of Service: 02/09/2025 Facility: [facility] Type of Visit: Skilled Visit Subjective Rashard Lyman is a 65 y.o. male seen today at intermediate facility for skilled visit. Rashard is in [...] neuropathy, with long-term current use of insulin ([facility]) 2. End stage renal disease ([facility]) 3. Hemodialysis-associated hypotension 4. Acquired absence of left foot ([facility]) 5. Acquired absence of right foot ([facility]) He is doing a bit better with his blood sugars but blood pressure still is a problem. He is alreadytaking midodrine. He is not a candidate for Florinef. Continue therapy to reach maximum improvement. ELECTRONICALLY SIGNED BY: Colton Lamb DO documented in this encounterUniversity Hospitals Samaritan Medical Center10-21-2025 History of Present illness Narrative* Colton Lamb DO - 02/16/2025 11:59 PM EDT Patient Name: Rashard Lyman Date of : 1960 Date of Service: 02/16/2025 Facility: [facility] Type of Visit: Skilled Visit Subjective Rashard Lyman is a 65 y.o. male seen today at intermediate facility for skilled visit Rashard isn't therapy. [...] long-term current use of insulin ([facility]) 2. End stage renal disease ([facility]) 3. Dependence on renal dialysis 4. Hemodialysis-associated hypotension He is currently on midodrine 10 mg T.I.D. for hypotension. Consider a p.r.n. dose. Continue therapy to reach maximum improvement. Encouraged diet for improved sugars. All medications reviewed and are medically necessary. ELECTRONICALLY SIGNED BY: Colton Lamb DO documented in this encounterOhio Valley Surgical Hospitalitzat [id number] History of Present illness Narrative* Colton Lamb DO - 02/02/2025 12:12 PM EDT Patient Name: Rashard Lyman Date of : 1960 Date of Service: 02/02/2025 Facility: [facility] Type of Visit: Skilled Visit Subjective Rashard Lyman is a 64 y.o. male seen today at intermediate facility for dkilled visit. Rashard is in [...] neuropathy, with long-term current use of insulin ([facility]) 2. Unspecified trochanteric fracture of right femur, subsequent encounter for closed fracture with routine healing 3. Nausea 4. Acquired absence of left foot ([facility]) 5. Acquired absence of right foot ([facility]) 6. End stage renal disease ([facility]) Will add ondansetron 4 mg Q4 hrs [...] BY: Colton Lamb DO documented in this encounterOhio Valley Surgical HospitalThe Efficiency Network ([facility]) [facility] [id number] History of Present illness Narrative* Colton Lamb DO - 01/26/2025 11:59 PM EDT Patient Name: Rashard Lyman Date of : 1960 Date of Service: 01/26/3035 Facility: [facility] Type of Visit: Skilled Visit Subjective Rashard Lyman is a 64 y.o. male seen today at intermediate facility for skilled visit. When his participating [...] long-term current use of insulin ([facility] 3. End stage renal disease ([facility] 4. Acquired absence of right foot ([facility] 5. Acquired absence of left foot ([facility]) His blood glucose readings were reviewed and [...] BY: Colton Lamb DO documented in this encounterOhio Valley Surgical HospitalThe Efficiency Network ([facility]) [facility] [id number] History of Present illness Narrative* Colton Lamb DO - 01/19/2025 11:59 PM EDT Patient Name: Rashard Lyman Date of : 1960 Date of Service: 01/19/2025 Facility: [facility] Type of Visit: Admission H&P Subjective Rashard Lyman is a 64 y.o. male seen today at intermediate facility for admission H&PVaishali Munoz presents today from [facility] to [facility] for therapy. He has a fairly complex medical history. He recently fell and fractured his right hip. He had intensive inpatient therapy following his hospital stay at [facility]. He requires physical therapy as he [...] COPD (chronic obstructive pulmonary disease) ([facility] Diabetes mellitus ([facility]) Fracture, clavicle History of MRSA (methicillin resistant Staphylococcus aureus) Neuropathy Renal failure Dialysis since 04/2014 Past Surgical History: Procedure Laterality Date APPENDECTOMY CHOLECYSTECTOMY DIALYSIS FISTULA CREATION Right arm INJECTION CAUDAL EPIDURAL WITH CATHETER, STEROID N/A 06/05/2019 Performed by Jefferson Bryant MD at [facility] Right 5th TONSILLECTOMY Family [...] pulmonary disease, unspecified COPD type ([facility]) 3. End stage renal disease ([facility]) 4. Dependence on renal dialysis 5. Peripheral vascular disease, unspecified 6. Acquired absence of left foot ([facility]) 7. Acquired absence of right foot ([facility]) 8. Type 2 diabetes mellitus with diabetic neuropathy, with long-term current use of insulin [place] 9. Hyperlipidemia, unspecified hyperlipidemia type 10. Gastroesophageal reflux disease, unspecified whether esophagitis present 11. Psoriasis, unspecified [facility] Continue current regimen. Therapy evaluation. Full code. Continue dialysis. He is using high risk medication with benefit. Can not take NSAIDs. Continue midodrine 10 mg twice a day for hypotension. Good rehab potential. ELECTRONICALLY SIGNED BY: Colton Lamb DO documented in this encounterUniversity Hospitals Samar[facility]08-27-2025 Evaluation note* Diagnosis Onset Date Resolution Status [...] 2:49amPre-operative cardiovascular examinationacuteAu2024 2:49amPsoriasisacuteAugust 2024 2:49amRadius distal fractureacuteAumountain [facility]2024 2:49amType 2 diabetes mellitus with diabetic chronic kidney disease acuteAu2024 2:49amCOPD (chronic obstructive pulmonary disease)chronic December 23, 2024 2:49amDiabeteschronicAugust 2024 2:49am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chronicAugu2024 2:49amGERD (gastroesophageal reflux disease)chronicDecember 23, 2024 2:49amHypertensionchronicAugust 2024 2:49am [facility] Work Phone: 1(307) 107-756108-27-2025 Evaluation note* Diagnosis Onset Date Resolution Status [...] disease acuteAugus2024 2:49amCOPD (chronic obstructive pulmonary disease)chronic [place] 2024 2:49amDiabeteschronicAugust 2024 2:49am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chronicAugust 2024 2:49amGERD [...] 4:06pmGERD (gastroesophageal reflux disease)chronicSept2024 4:06pmHypertension chronicSept2024 4:06pm [facility] Work Phone: 1(983) 850-980508-27-2025 Evaluation note* Diagnosis Onset Date Resolution Status [...] disease acuteAu2024 2:49amCOPD (chronic obstructive pulmonary disease)chronic [place] 2024 2:49amDiabeteschronicAugust 2024 2:49am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chronicAugust 2024 2:49amGERD [...] 2024 10:59amOther specified postprocedural statesnoneactiveOctober 2024 10:59am [facility] Work Phone: 1(437) 137-354110-31-2024 Evaluation + Plan note* Assessment & Plan Note - Nima Lee MD - 02/27/2024 11:44 AM EDTAssociated Problem(s): Critical limb ischemia of left lower extremity with gangrene (CMS-HCC) PVR [facility]10-31-2024 Miscellaneous Notes* Assessment & Plan Note - Nima Lee MD - 02/27/2024 11:44 AM EDTAssociated Problem(s): Critical limb ischemia of left lower extremity with gangrene (CMS-HCC) PVR documented in this encounterUniversity Hospitals Samaritan Medical Center10-31-2024 History of Present illness Narrative* [...] musculoskeletal pain COPD (chronic obstructive pulmonary disease) ([facility]) Diabetes mellitus [place] Fracture, clavicle History of MRSA (methicillin resistant Staphylococcus aureus) Neuropathy Renal failure Dialysis since 04/2014 Past Surgical History: Past Surgical History: Procedure Laterality Date APPENDECTOMY CHOLECYSTECTOMY DIALYSIS FISTULA CREATION Right arm INJECTION CAUDAL EPIDURAL WITH CATHETER, STEROID N/A 06/05/2019 Performed by Jefferson Bryant MD at [facility] Right 5th TONSILLECTOMY Social [...] Plan PVR 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 Diagnoses and all [...] you for your understanding. documented in this encounterUniversity Hospitals Samaritan Medical Center04-24-2023 NotePROCEDURE: XR FOOT LT MIN 3 VIEWS [...] Electronically authenticated by: PRISCA SANDERSON Date: 2022-08-20 13:00[facility]04-19-2023 NoteEXAM: XR CHEST 2 V HISTORY: Pre-surgery [...] Electronically authenticated by: CHINO VENEGAS Date: 2022-08-15 15:06[facility]04-05-2023 NotePROCEDURE: XR FOOT LT MIN 3 VIEWS [...] Electronically authenticated by: JAMESON SALGUERO Date: 2022-08-01 07:49[facility]11-03-2022 NoteCONSULTATION CONSULTATION DATE: 03/01/2022 This is a [...] with certain activities such as standing, walking, brazer controlled atmospheric furnace and 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[facility] [id number] NoteCONSULTATION PROCEDURE DATE: 03/01/2022 PREOPERATIVE DIAGNOSIS: Right [...] pattern and patient tolerated procedure well.[facility] HospitalQdshrrvb19-53-2228 NotePROCEDURE: XR ANKLE LT MIN 3 V, [...] by: PRISCA SANDERSON Date: 2021-12-22 10:12[facility] [id number] NotePROCEDURE: XR ANKLE LT MIN 3 V, [...] Electronically authenticated by: PRISCA SANDERSON Date: 2021-12-22 10:[facility]08-26-2022 NotePROCEDURE: XR ANKLE LT MIN [...] Electronically authenticated by: PRISCA SANDERSON Date: 2021-12-22 10:[facility]08-26-2022 NotePROCEDURE: XR ANKLE LT 2V HISTORY: Pain ; left ankle external fixation application COMPARISON: None. FINDINGS: BONES:3 intraoperative spot fluoroscopic images demonstrate external fixation device surrounding the left ankle. IMPRESSION: External fixation device application. Electronically authenticated by: PRISCA SANDERSON Date: 2021-12-22 10:[facility]08-16-2022 NotePROCEDURE: XR FOOT LT MIN 3 VIEWS [...] Electronically authenticated by: PRISCA SANDERSON Date: 2021-12-12 08:[facility]08-04-2022 NoteCONSULTATION The patient returns to the clinic [...] in clinic in three months' time.[facility] [id number] NoteCONSULTATION CONSULTATION DATE: 11/22/2021 HISTORY OF PRESENT [...] to the clinic to receive those.[facility] [id number] NotePROCEDURE: XR FOOT LT MIN 3 VIEWS [...] authenticated by: PRISCA SANDERSON Date: 2021-11-14 15:42[facility] HospitalJhsvzthi35-58-1215 NotePROCEDURE: XR FOOT LT MIN 3 VIEWS [...] authenticated by: JAMESON SALGUERO Date: 2021-11-07 19:28[facility] [id number] Evaluation note* Encounter Date Diagnosis Assessment Notes [...] takes midodrine as well as stated above. [facility] Other 03-27-2021 NoteMR#: [id number] [facility] Name: Rashard Lyman Admitted: 07/13/2020 [...] chest pain. Also, there is mention on [place] records of large inferior/lateral wall abnormality in [...] ON DISCHARGE: A (more content not included)...[facility]03-19-2021 NoteMR#: [id number] [facility] Name: Rashard Lyman Surgery Date: 07/14/2020 Room #: 3AB [id number] Date of : 1960 PROCEDURE NOTE ATTENDING: [...] Pham MD Date Trans: 07/15/2020 01:32 P/ [id number] cc: Nima Wynne MD [address] [place], [place] [address] [address] NoteMR#: [id number] [facility] Name: Rashard Lyman Surgery Date: 07/14/2020 Room #: 3AB [id number] Date of : 1960 PROCEDURE NOTE ATTENDING: Nima Wynne MD Procedure: Left sided US guided Thoracentesis Pre-procedure Diagnosis: Left pleural effusion Post-procedure Diagnosis: same as above Prior to Procedure: Informed Consent:The risks, benefits, indications, potential complications, and alternatives were explained to the patient/family and informed consent obtained Attending Staff: Nima Wynne Resident/Fellow/HAND II THERMAL CUTTER: Davis Pham Indications: Nura Munoz is [...] Wynne MD Date Trans: 07/15/2020 12:53 P/ [id number] [facility]* Diagnosis Onset Date Resolution Status Hyperglycemia acutePneumoniaacutePsoriasisacuteType 2 diabetes mellitus with diabetic chronic kidney diseaseacuteCKD (chronic kidney disease) stage 4, GFR 15-29 ml/minchronic COPD (chronic obstructive pulmonary disease)chronic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 chronicGERD (gastroesophageal reflux disease)chronicObesities, morbidchronic Peripheral vascular occlusive diseasechronicStatus post amputation of toe of right footchronic [facility]* Diagnosis Onset Date Resolution Status MARISOL (acute kidney injury) acuteAnemia of renal diseaseacuteAtelectasis of left lungacuteFibrothoraxacute History of pleural effusionacuteMetabolic acidosisacutePericarditisacute Pleuritic chest painacutePsoriasisacuteType 2 diabetes mellitus with diabetic chronic kidney diseaseacuteCKD (chronic kidney disease) stage 4, GFR 15-29 ml/minchronicCOPD (chronic obstructive pulmonary disease)chronic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chronicGERD (gastroesophageal reflux disease)chronicHypertension [id number], morbidchronicPeripheral vascular occlusive diseasechronicStatus post amputation of toe of right footchronic [facility]* Diagnosis Critical limb ischemia of left lower extremity with gangrene ([facility] Primary [facility] this encounter [facility] SystemEvaluation noteNo assessment information available [facility] Work Phone: Evaluation note* Diagnosis Critical limb ischemia of left lower extremity with gangrene ([facility])- Primary Unspecified trochanteric fracture of right femur, subsequent encounter for closed fracture with routine healing- Primary Chronic obstructive pulmonary disease, unspecified COPD type ([facility]) End stage renal disease ([facility]) End stage renal disease Dependence on renal dialysis Renal dialysis status Peripheral vascular disease, unspecified Acquired absence of left foot ([facility]) Acquired absence of right foot ([facility]) Type 2 diabetes mellitus with diabetic neuropathy, with long-term current use of insulin ([facility]) Hyperlipidemia, unspecified hyperlipidemia type Gastroesophageal reflux disease, unspecified whether esophagitis present Psoriasis, unspecified documented in this encounter [facility]* Diagnosis Critical limb ischemia of left lower extremity with gangrene ([facility])- Primary Type 2 diabetes mellitus with diabetic neuropathy, with long-term current use of insulin ([facility])- Primary Unspecified trochanteric fracture of right femur, subsequent encounter for closed fracture with routine healing Nausea Nausea alone Acquired absence of left foot (CMS-HCC) Acquired absence of right foot ([facility]) End stage renal disease ([facility]) End stage renal disease documented in this encounter [facility] SystemEvaluation note* Diagnosis Critical limb ischemia of left lower extremity with gangrene ([facility])- Primary Unspecified trochanteric fracture of right femur, subsequent encounter for closed fracture with routine healing- Primary Type 2 diabetes mellitus with diabetic neuropathy, with long-term current use of insulin ([facility]) End stage renal disease ([facility]) End stage renal disease Acquired absence of right foot ([facility]) Acquired absence of left foot ([facility]) documented in this encounter [facility]* Diagnosis Critical limb ischemia of left lower extremity with gangrene ([facility])- Primary Type 2 diabetes mellitus with diabetic neuropathy, with long-term current use of insulin ([facility])- Primary End stage renal disease ([facility]) End stage renal disease Dependence on renal dialysis Renal dialysis status Hemodialysis-associated hypotension Hypotension of hemodialysis documented in this encounter [facility]* Diagnosis Critical limb ischemia of left lower extremity with gangrene ([facility])- Primary Type 2 diabetes mellitus with diabetic neuropathy, with long-term current use of insulin ([facility])- Primary End stage renal disease ([facility]) End stage renal disease Hemodialysis-associated hypotension Hypotension of hemodialysis Acquired absence of left foot ([facility]) Acquired absence of right foot ([facility]) documented in this encounter [facility] SystemHistory general Narrative - Reported* Type Description Date Medical History ESRD Medical HistoryMOMedical HistoryHTNMedical HistoryDMMedical HistoryCOPDMedical HistoryAllergic reaction to Vicryl Sutures use Monofilament suturesMedical HistoryLOW BACK PAIN/ HAIRLINE FRACTURESurgical HistoryDialysis catheter placementsSurgical HistoryRight 5th toe qsdifivmsb25/2015Surgical History Creation rigth radiocephalic AVF06/2014Surgical HistoryRevision right Maged AVF by transposition of cephalic vein to subcuticular position/fistulogram/balloon angioplasty cephahlic vein inflow hzyyxjnv89/2015Surgical Historyall toes removed from left footSurgical HistoryappendectomySurgical Historygall bladder removedSurgical HistoryLEFT FOOT WOUND AND AMPUTATION OF ALL [id number] HistoryINJECTIONS IN HIS LOWER BACKHospitalization Historysee above [facility] Other Hospital Discharge instructions Additional Instructions You are scheduled for an outpatient follow up ECHOCARDIOGRAM in [address] [facility] to re-assess your pericardial effusions [...] Educate on high risk fall precautions [facility] Dis[facility] instructionsOhio [facility]trHospital Discharge instructionsOhio [facility] InstructionsNot on filedocumented in this encounterAv[facility] InstructionsNot on filedocumented in this encounterAvita [facility] InstructionsNot on filedocumented in this encounterAv[facility] InstructionsNot on filedocumented in this encounterAvita [facility] SystemReason for referral (narrative)No reason for referral information availableOhio State [facility] Work Phone: Assessments No Assessments Information [...] 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 GERD (gastroesophageal reflux disease) Hypertension [id number] Obesities, morbid Peripheral vascular occlusive disease Status [...] 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 GERD (gastroesophageal reflux disease) Hypertension [id number] Obesities, morbid Peripheral vascular occlusive disease Status [...] 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 GERD (gastroesophageal reflux disease) Hypertension [id number] Obesities, morbid Peripheral vascular occlusive disease Status [...] cardiovascular examination December 23, 2024 2:49am Psoriasis [place] 27th, 2025 2: 49am Radius distal fracture [...] and content) DATE CREATED AUTHOR 09/11/[address] [facility] DATE CREATED AUTHOR AUTHOR'S ORGANIZ ATION 10/21/2020 [facility] DATE CREATED AUTHOR AUTHOR'S ORGANIZ ATION 10/05/2022 [facility] DATE CREATED AUTHOR AUTHOR'S ORGANIZ ATION 06/03/2023 [facility] DATE CREATED AUTHOR AUTHOR'S ORGANIZ ATION 11/22/2023 [facility] DATE CREATED AUTHOR AUTHOR'S ORGANIZ ATION 02/18/2024 [facility] DATE CREATED AUTHOR AUTHOR'S ORGANIZ ATION 02/13/2025 [facility] Goals (unrecognized section and [...] ProviderActiveStart: December 30, 2024 Alyssia Jacobo , SHAGGER-COther ProviderActiveStart: December 30, 2024 Nima Lee MDOther [...] ProviderActiveStart: December 30, 2024 Patricia Carmona , SHAGGER-COther ProviderActiveStart: December 30, 2024 Nick Jerez , [...] ProviderActiveStart: December 30, 2024 Elizabeth Monroe , SHAGGER-COther ProviderActiveStart: December 30, 2024 Carie Abraham MDOther [...] ProviderActiveStart: January 06, 2025 Patricia Carmona , SHAGGER-COther ProviderActiveStart: January 06, 2025 Nick Jerez , [...] Richter RNOther ProviderActiveStart: January 13, 2025 Denise oGld RNOther ProviderActiveStart: January 13, 2025 Diana Douglass [...] ProviderActiveStart: January 13, 2025 Patricia Carmona , SHAGGER-COther ProviderActiveStart: January 13, 2025 Nick Jerez , [...] ProviderActiveStart: December 23, 2024 Alyssia Batista , SHAGGER-COther ProviderActiveStart: December 23, 2024 Nima Lee MDOther [...] ProviderActiveStart: December 30, 2024 Alyssia Batista , SHAGGER-COther ProviderActiveStart: December 30, 2024 Nima Lee MDOther [...] MemberRelationshipSpecialtyStart DateEnd Date Jose Juarez Jr., DO [address] [place] [id number] PCP - GeneralInternal Kpiphssz47/15/17 Team Status: Inactive Member Role Status Dates Chino Elliott DPM MS Attending Provider Active Start: August 28, 2024 End: August 28, 2024Team MemberRelationshipSpecialtyStart DateEnd Date Jose Juarez Jr., DO [address] [place] [id number] PCP - GeneralInternal Ssfsjrek56/15/17Team MemberRelationshipSpecialtyStart Date End Date Jose Juarez Jr., DO [address] [place] [id number] PCP - GeneralInternal Hwzyodvy30/15/17Team MemberRelationshipSpecialtyStart Date End Date Jose Juarez Jr., DO [address] [place] [id number] PCP - GeneralInternal Qmvniuyp11/15/17Team MemberRelationshipSpecialtyStart Date End Date Jose Juarez Jr., DO [address] [place] [id number] PCP - GeneralInternal Kuzeipyn65/15/17Team MemberRelationshipSpecialtyStart Date End Date Jose Juarez MD [address] [place] [phone] PCP - GeneralInternal Medicine09/07/24Team MemberRelationshipSpecialtyStart Date End Date Jose Juarez Jr., DO [address] [place] [address] [id number] PCP - GeneralInternal Xhhpfxrs38/15/17 FOR RECORDS PERTAINING TO PATIENTS WHO ARE [...] BE BASED ON THE PRIMARY CLINICAL RECORDS. [facility]. provides no warranty or guarantee of the accuracy or completeness of information in this document.
== END 2025-04-07 10:01 | disposition home or self-care (01) ==
LOC: WC 10:03
PROVIDERS: PCP Internal Medicine; Visit Provider Physician Assistant
DX: E11.621 Type 2 diabetes mellitus with foot ulcer (principal); L97.412 Non-pressure chronic ulcer of right heel and midfoot with fat layer exposed
CPT/HCPCS: G0463

== ENCOUNTER 2025-04-08 09:28 | Outpatient (OUT) | payer BC, SELFPAY ==
--- OUTSIDE RECORDS SUMMARY | 2025-04-08 09:37 | XMS_ITS | CCD ---
Author Organization [facility] Care Team Providers Care Knuckle Bender Name Role Phone Jose Juarez Primary Care Provider [phone] Eugene Morel Admit Provider [phone] Eugene Morel Attending Provider Gordon Ewing Attending Provider [phone] Patria Cheung Attending Provider [phone] SAVANNAH REYNOLDS Admitting Unavailable SAVANNAH REYNOLDS Attending Unavailable JOSE JUAREZ Primary Care Unavailable JOSE JUAREZ Referring Unavailable [facility] Procedure Practitioner Unavailab TRISHA Ozuna Surgeon Unavailable NIMA WYNNE Surgeon Unavailable [facility] Procedure Practitioner Unavailab Jose Andres Primary Care Provider [phone] Eugene Morel Admit Provider [phone] Gordon Ewing Attending Provider Patria Cheung Attending [...] EDUARDO Carmona Attending Unavailable SU ., DR CARLO SEDUARDO Carmona Admitting Unavailable VALONE, DR RIOS Primary [...] Valone Jr., Jose MAE Primary Care Provider [facility] DPM, Chino Hopson Attending Provider [phone] Kenya DPM, Chino Hopson Attending Provider [facility] DPM, Chino Hopson Attending Provider Jose Juarez JR Primary Care Provider Celia SIGALA, Enrique Admit Provider Lanie SIGALA, Leno Jennings Other Provider Leigh SIGALA, Carie Other Provider Fransisco AGUSTIN, Love Other Provider Unavailable Lester SIGALA, Ari Attending Provider [phone] Ari Batista MD Other Provider Lester NIETO-C, Alyssia Tilley Other Provider [phone] Jesus SIGALA, Nima Gan Other Provider Leonardo SIGALA, Benjamin Richter Other Provider Maite SIGALA, Luis Enrique Hopson Other Provider Pablo SIGALA, Nir Dennison Other Provider Roger MAE, Yasonia Other Provider London SIGALA, Mya Other Provider Ronald SIGALA, Clayton Other Provider Camila GOOD, Aleta Other Provider [phone] Raad SIGALA, Doc Hopson Other Provider Kami SIGALA, Raimundo Attending Provider Ronald SIGALA, Clayton Admit Provider Clayton Cardenas MD Attending Provider [phone] Ingrid RUBIO, Marlena Other Provider Unavailable Neelam RUBIO, Yudy Other Provider Unavailable Asif RN, Denise Other Provider Unavailable Rafat RN, Diana Other Provider Unavailable Dimas RNMeme Other Provider Unavailable Ronald RUBIO, Brigitte Other Provider Unavailable Sukumar Patricio MD Other Provider Doug Joseph DO Other Provider Billy SIGALA, Dinesh Other Provider Eugene Morel DO Other Provider [phone] Celia SIGALA, Enrique Other Provider Liza Rod [...] Other Provider Zaid June DO Other Provider [phone] Tye SIGALA, Luz Maria Dennison Other Provider Angelina Ren APRN Other Provider Stefany Herring APRN Other Provider Willian Soto MD Other Provider Unavailable Jerry Butler MD Other Provider Cici Reilly MD Other Provider Ericak Otto APRN Other Provider Unavailable Talia Pinedo MD Other Provider Clayton Ramsey MD Other Provider Dewayne Akbar MD Other Provider Josemanuel Talavera MD Other Provider Mary Pichardo APRN Other Provider Bolzan-Basilia FLORENTINO, Nicoletto Other Provider [phone] Alanis RUBIO, Fanta Other Provider Unavailable Kike Pollack MD Other Provider Mabel PRESS OFFBEARER-C, Elizabeth Other Provider Unavailable Raimundo Mcclure MD Other Provider Aleta Jensen APRN Attending Provider Larry Charles DO, Charles L Primary Care Provider Donnell PRESS OFFBEARER-C, Alyssia Tilley Other Provider Bryan Cordova DO Other Provider Unavailab Wilfrido Kirk DO Attending Provider [phone] Chino Elliott Admitting Unavailable Chino Elliott Attending [...] Consulting Unavailable Dinesh Cervantes Consulting Unavailable Eugene oMrel Consulting UnavailEnrique Salazar Consulting Unavailable Liza Rod [...] Consulting Unavailable Stefany Herring Consulting Unavailable Willian Soot Consulting Unavailable Jerry Butler Consulting Unavailable Phillip [...] Allergen(s)Allergy TypeDate of OnsetReaction(s) Facilityexenatide (1 source)exenatideDrug Dkhymxu87-21-8198Aad [facility] RepositoryNSAIDs (5 sources)celecoxib; Translations: [Celebrex]Drug Wjxvood63-85-2252Azctxjgane BreathingThe [facility] RepositoryPhenolphthalein (1 source)PhenolphthaleinDrug Xhyyufh17-32-5022Rso [facility] Repository (16 sources)celecoxib; Translations: [celecoxib]Drug Fumpvcl04-28-1804Tdbptpeowa Breathing, bad for kidney, Difficulty [facility] (14 sources)Aspirin; Translations: [ASPIRIN]Drug Qlbkbvc49-48-4884oro for kidney [facility] Repository (3 sources)AmoxicillinDrug Phdaqdq72-66-8980Bhm [facility] Repository (1 source)celecoxibDrug Ykougob95-01-6882GhbMccullough[facility] Rep[facility] (1 source)exenatideDrug Igkoppj32-71-4726YtpMccullough-Hy[facility] Repository (1 source)PhenolphthaleinDrug Mtamtzw91-45-3463Lqf [facility] Repository (8 sources)exenatide; Translations: [EXENATIDE]Drug Tvaqamq30-97-5206MbqAokque Repository (8 sources)HYLAN G-F 20; Translations: [HYLAN G-F 20]Propensity to adverse reactions to drug (disorder)81-01-9141JbfMqoawz Repository (2 sources)exenatideDrug Ifsrazt63-34-3953BevcpszbuLicking Memorial Hospital (2 sources)OXcarbazepineDrug Peqgfot75-55-1555AzhlqhcjcLicking Memorial Hospital (1 source)AspirinDrug Qsznaaz84-48-6287VzrehweeeLicking Memorial Hospital Repository Medications Current Medications MedicationDrug Class(es)DatesSig (Normalized)Sig (Original)acetaminophen 500 mg oral tablet (2 sources)Start: 48-20-5840rggq 2 tablets by mouth three times dailyAlbuterol Sulfate (16 sources)beta2-Adrenergic AgonistStart: 40-40-1920odmk 1 puff(s) by inhalation every six hoursAlbuterol Sulfate Active 2 PUFF Inhalation Q6H December 31, 2018 3:14pmStart: 09-30-2017 End: 66-69-8119kovx 1 puff(s) by inhalation every six hoursAlbuterol Sulfate Discontinued 2 PUFF INHALATION Q6H September 30, 2017 6:15pm November 08, 2017 1:23pm Start: 09-30-2017 End: 64-99-2724zwlr 1 puff(s) by inhalation every six hours [...] oral tablet (1 source)Dihydropyridine Calcium Channel BlockerStart: 82-85-5359codl 10 mg by mouth once dailyAmlodipine Active 10 MG Oral Daily January 05, 2019 2:10pm B Complex And C 20-Folic Acid (Renal Caps) 1 mg Capsule (4 sources)Start: 59-80-4866ncre 1 capsule by mouth once dailyB Complex With C 20-Folic Acid (Renal Caps) 1 mg Capsule (5 sources)Start: 07-38-1615cmqm 1 capsule by mouth once dailyB Complex With C 20-Folic Acid (Renal Caps) 1 mg Capsule Active 1 CAP PO Daily August 18, 2020 9:20pmStart: 83-55-9759qtoq 1 capsule by mouth once dailyB Complex With C 20- Folic Acid (Renal Caps) 1 mg Capsule Active 1 CAP PO Daily August 18, 2020 12:0 0ambiotin 5 mg disintegrating oral tablet (7 sources)Start: 74-51-5346lpqf 5000 ug by mouth twice dailyBiotin Active 5000 MCG Oral Twice daily September 30, 2017 6:18pmbiotin 5,000 mcg tablet,disintegrating Dissolve 10,000 mcg on tongue 2 (two) times a day. Lzakxa31 hr buPROPion hydrochloride 300 mg extended release oral tablet (16 sources)AminoketoneStart: 85-41-6543fgcx 1 tablet by mouth once dailyStart: 95-96-1203ihvs 150 mg by mouth once dailyBupropion Hcl Active 150 MG Oral Daily September 30, 2017 6:19pmStart: 30-27-4922ncig 1 tablet by mouth every twelve hours in the morningbuPROPion SR (WELLBUTRIN SR) 150 mg 12 hr tablet Take 1 tablet (150 mg total) by mouth in the morning. Activecolesevelam hydrochloride 625 mg oral tablet (16 sources)Bile Acid SequestrantStart: 11-14-4543iyns 3 tablets by mouth three times daily at mealtimeColesevelam (Welchol) 625 mg Tablet Active 1875 MG PO THREE TIMES DAILY WITH MEALS September 30, 2017 6:42pmStart: 09-96-1162gksa 1250 mg by mouth three times daily at mealtimeColesevelam Active 1250 MG Oral THREE TIMES DAILY WITH MEALS September 30, 2017 6:42pmStart: 09-30-2017 End: 11-99-4104qjkv 3 tablets by mouth twice daily at mealtimeColesevelam (Welchol) 625 mg Tablet Discontinued 1875 MG PO TWICE DAILY WITH MEALS September 30, 2017 12:00am December 29, 2024 12:20pmcolesevelam (WELCHOL) 625 mg tablet Take 650 mg by mouth Medrol Dose Pack scheduling ONLY. Active1 ml darbepoetin ml 0.06 mg/ml injection (2 sources)Erythropoiesis-stimulating AgentStart: 08-08-0856dhin 60 ug intravenously every weekdocusate sodium 100 mg oral capsule (18 sources)Start: 69-83-7607oqny 1 capsule by mouth twice dailyStart: 94-30-9543ddtf 100 mg by mouth twice dailyDocusate Sodium Active 100 MG Oral Twice daily December 31, 2018 3:14pmStart: 09-30-2017 End: 67-68-4105zrok 1 capsule by mouth twice dailyDocusate Sodium (Colace) 100 mg Capsule Discontinued 100 MG PO Twice daily September 30, 2017 12:00am November 08, 2017 1:27pmDULoxetine 60 mg delayed release oral capsule (19 sources)Serotonin and Norepinephrine Reuptake InhibitorStart: 63-75-2853jxma 1 capsule by mouth once dailyStart: 09-30-2017 End: 33-67-9871qtzn 1 capsule by mouth at bedtimeDuloxetine 30 mg capsule,delayed release(DR/EC) Discontinued 30 MG PO Bedtime September 30, 2017 12:00am December 31, 2018 3:08pmfamotidine 40 mg oral tablet (17 sources)Histamine-2 Receptor AntagonistStart: 09-84-7769Exeql: 08-18-2020 take 1 tablet by mouth twice dailyStart: 91-26-3109lmgp 20 mg by mouth twice dailyFamotidine Active 20 MG Oral Twice daily September 30, 2017 6:23pmFinerenone (3 sources)Start: 02-09-0562lhda 1 tablet by mouth once dailyfolic acid 1 mg oral tablet (7 sources)Start: 41-33-7112nesk 1 mg by mouth once dailyFolic Acid Active 1 MG Oral Daily December 31, 2018 3:14pm ALL DAYS EXCEPT SATURDAYheparin sodium, porcine 5000 unt/ml injectable solution (2 sources)Unfractionated Heparin, Anti-coagulantStart: 66-00-3517dvtnak 5000 [IU] by subcutaneous injection every twelve hours3 ml insulin aspart, human 100 unt/ml pen injector (8 sources)Insulin AnalogStart: 12-29-2024 End: 53-28-5033Kgbcf: 12-23-2024 End: 03-77-3296Yvrnwfb Aspart U-100 (Novolog U-100 Insulin Aspart) 100 unit/mL solution Discontinued 1 sliding scale dose SUBCUT As Directed December 23, 2024 12:00am January 15, 2025 12:24pm3 ml insulin glargine 100 unt/ml pen injector (5 sources)Insulin AnalogStart: 72-57-9963Xinel: 12-29-2024 End: 94-76-1954Svjzjcy Glargine (Lantus Solostar U-100 Insulin) 100 unit/mL (3 mL) Insulin Pen Discontinued 40 UNIT SUBCUT Daily 04 27December 29, 2024 12:00am January 15, 2025 12:23pmlidocaine 0.04 mg/mg medicated patch (2 sources)Antiarrhythmic, Amide Local AnestheticStart: 22-48-2888irkuy 1 dose topically once dailylinezolid 600 mg oral tablet (1 source)Oxazolidinone AntibacterialStart: 95-89-5202awcs 600 mg by mouth twice dailyLinezolid Active 600 MG Oral Twice daily 28 14 January 05, 2019 2:10pm Magnesium (1 source)Magnesium 400 MG as directed Orally Activemeclizine hydrochloride 25 mg chewable tablet (17 sources)AntiemeticStart: 00-92-1899qbvh 25 mg by mouth once dailyMeclizine Active 25 MG Oral Daily September 30, 2017 6:30pmStart: 09-30-2017 End: 91-02-7407fsev 1 tablet by mouth every eight hours as needed for dizziness Meclizine 25 mg Tablet,Chewable Discontinued 25 MG PO Every 8 hours as needed for Dizziness September 30, 2017 12:00am December 29, 2024 12:20pmtake 1 tablet by mouth every eight hoursMeclizine HCl 25 MG 1 tablet as needed Orally three times a day Activemetoprolol tartrate 25 mg oral tablet (1 source)beta-Adrenergic BlockerStart: 63-42-1158wjve 25 mg by mouth twice dailyMetoprolol Tartrate Active 25 MG Oral Twice daily 120 60 January 05, 2019 2:10pmmidodrine hydrochloride 5 mg oral tablet (3 sources)alpha-Adrenergic AgonistStart: 20-51-1444suxa 2 tablets by mouth before breakfasttake 1 tablet by mouth twice daily in the morningMidodrine HCl 5 MG TAKE 1 TABLET BY MOUTH TWICE DAILY IN THE MORNING AND SUPPER IF BLOOD PRESSURE IS LESS THAN 90 STANDING Oral Activemontelukast 10 mg oral tablet (17 sources)Leukotriene Receptor AntagonistStart: 12-80-3448jnnq 1 tablet by mouth at bedtimeMultivit With Gan-Ac-Cncdutes (One-A-Day Men's 50 Plus) 400-370 mcg tablet (3 sources)Start: 45-90-4802mkud 50-400 tablets by mouth once dailynystatin 100 unt/mg topical powder (2 sources)Polyene AntifungalStart: 95-60-8462afaocdleqvu 4 mg oral tablet (1 source)Serotonin-3 Receptor Antagonisttake 1 tablet by mouth every eight hours as neededOndansetron HCl 4 MG TAKE 1 TABLET BY MOUTH EVERY 8 HOURS NEEDED Oral for 3 ActiveoxyCODONE hydrochloride 5 mg oral tablet (2 sources)Opioid AgonistStart: 51-43-6272yvqc 2 tablets by mouth every six hours as needed for painpolyethylene glycol 3350 12990 mg powder for oral solution (3 sources)Osmotic LaxativeStart: 79-55-7160Gevugiu 17 grams orally at hour of sleep Activepregabalin 75 mg oral capsule (6 sources)Start: 21-12-2989acwp 1 capsule by mouth three times dailypregabalin (LYRICA) 75 mg capsule Indications: Diabetic peripheral neuropathy (CMS-HCC) Take 1 capsule (75 mg total) by mouth 3 (three) times a day. 90 capsule 1 04/16/2019 ActiveRenal Softgels (1 source)Renal Softgels Activerosuvastatin calcium 20 mg oral tablet (20 sources)HMG-CoA Reductase InhibitorStart: 05-16-0256gwxm 1 tablet by mouth at bedtimeStart: 02-70-6643vswc 10 mg by mouth once dailyRosuvastatin (Crestor) 40 mg Tablet Active 10 MG PO Daily August 18, 2020 9:12pmStart: 08-18-2020 End: 33-80-6306Scotkksrfrpd (Crestor) 40 mg Tablet Discontinued 20 MG PO Daily August 18, 2020 12:00am August 25, 2020 12:34pmStart: 97-23-4090plzf 10 mg by mouth once dailyRosuvastatin Active 10 MG Oral Daily September 30, 2017 6:35pm sevelamer carbonate 800 mg oral tablet (20 sources)Phosphate BinderStart: 84-13-6573ppta 1 tablet by mouth once at mealtimeStart: 76-07-9946leif 400 mg by mouth once dailySevelamer Hcl Active 400 MG Oral Daily September 30, 2017 6:35pmStart: 09-30-2017 End: 62-71-0853Cdmutnqlb Hcl (Renagel) 800 mg Tablet Discontinued 400 MG PO Daily September 30, 2017 12:00am August 19, 2020 11:03amtake 1 tablet by mouth in the morningsevelamer (RENAGEL) 400 mg tablet Take 1 tablet (400 mg total) by mouth in the morning. Active5 ml sodium ferric gluconate complex 12.5 mg/ml injection (2 sources)Start: 23-23-5531dsaepxclounjb acetonide 1 mg/ml topical cream (16 sources)CorticosteroidStart: 41-64-4339Vusrusilkmhml Acetonide Active 1 APPLIC TOPICAL Twice daily December 31, 2018 3:14pmStart: 12-31-2018 End: 96-61-2976Plvyzjlzyiayn Acetonide 0.1 % Cream Discontinued 1 APPLIC TOPICAL Twice daily December 31, 2018 12:00am December 29, 2024 12:20pm Completed/Discontinued Medications MedicationDrug Class(es)DatesSig (Normalized)Sig (Original)acetaminophen 325 mg / HYDROcodone bitartrate 5 mg oral tablet (20 sources)Opioid AgonistStart: 12-31-2018 End: 19-18-4563tmcr 1 tablet by mouth every six hours as needed for pain Hydrocodone-Acetaminophen 5-325 mg tablet Discontinued 1 TAB PO Q6H as needed for Pain December 31, 2018 12:00am January 05, 2019 2:16pmStart: 09-30-2017 End: 93-20-3595hexb 1 tablet by mouth every four hours as needed for pain Hydrocodone-Acetaminophen 5-325 mg tablet Discontinued 5 MG PO Q4H as needed for Pain September 30, 2017 12:00am November 12, 2017 11:43amacetaminophen 325 mg / oxyCODONE hydrochloride 5 mg oral tablet (10 sources)Opioid AgonistStart: 11-12-2017 End: 51-06-3601uhhs 1 tablet by mouth every six hours [...] oral tablet (18 sources)Penicillin-class AntibacterialStart: 11-12-2017 End: 54-30-4255xcar 1 tablet by mouth every eight hoursAmoxicillin-Pot Clavulanate (Augmentin) 500-125 mg tablet Discontinued 1 TAB PO Q8H 42 November 12, 2017 12:00am November 25, 2017 12:00am November 26, 2017 12:01amStart: 10-04-2017 End: 22-96-5900cynw 1 tablet by mouth twice dailyAmoxicillin-Pot Clavulanate (Augmentin) 500-125 mg tablet Discontinued 1 TAB PO Twice daily 2017 12:00am November 08, 2017 1:24pmapremilast 30 mg oral tablet (9 sources)Start: 08-19-2020 End: 37-88-4428pmuj 1 tablet by mouth once dailyApremilast (Otezla) 30 mg Tablet Discontinued 30 MG PO Daily August 19, 2020 12:00am December 29, 2024 12:20pmatorvastatin 40 mg oral tablet (8 sources)HMG-CoA Reductase InhibitorStart: 08-23-2020 End: 56-69-0435woct 1 tablet by mouth once daily in the eveningAtorvastatin 40 mg Tablet Discontinued 40 MG PO Every evening August 23, 2020 12:00am January 15, 2025 12:23pmB Complex And C 20-Folic Acid 1 mg capsule (4 sources)Start: 09-30-2017 End: 04-96-4296vygz 1 capsule by mouth once dailyB Complex And C 20-Folic Acid 1 mg capsule Discontinued 1 CAP PO Daily September 30, 2017 12:00am November 08, 2017 1:25pmB Complex With C 20-Folic Acid (4 sources)Start: 09-30-2017 End: 80-85-2648nizk 1 capsule by mouth once dailyB Complex With C 20-Folic Acid Discontinued 1 CAP PO Daily September 30, 2017 6:45pm November 08, 2017 1:25pmB Complex With C 20-Folic Acid 1 mg capsule (1 source)Start: 09-30-2017 End: 07-52-1548bspa 1 capsule by mouth once dailyB Complex With C 20-Folic Acid 1 mg capsule Discontinued 1 CAP PO Daily September 30, 2017 12:00am 2017 1:25pmbumetanide 2 mg oral tablet (9 sources)Loop DiureticStart: 09-30-2017 End: 24-27-0611imwr 1 tablet by mouth once dailyBumetanide 2 mg Tablet Discontinued 2 MG PO Daily September 30, 2017 12:00am December 31, 2018 3:05pm calcium acetate 667 mg oral capsule (16 sources)Start: 09-30-2017 End: 08-88-7274kbia 1 capsule by mouth three times daily at mealtimeCalcium Acetate(Phosphat Bind) 667 mg Capsule Discontinued 667 MG PO THREE TIMES DAILY WITH MEALS September 30, 2017 12:00am August 25, 2020 12:34pmcholecalciferol 0.125 mg oral tablet (9 sources)Vitamin DStart: 08-18-2020 End: 88-96-6310xjcv 1 tablet by mouth once dailyCholecalciferol (Vitamin D3) (Vitamin D3) 125 mcg (5,000 unit) Tablet Discontinued 125 MCG PO DailyAugust 18, 2020 12:00am August 25, 2020 12:34pmdoxycycline hyclate 100 mg oral capsule (9 sources)Tetracycline-class DrugStart: 11-12-2017 End: 23-96-5425tltk 1 capsule by mouth twice dailyDoxycycline Hyclate 100 mg capsule Discontinued 100 MG PO Twice daily November 12, 2017 12:00amAugu2017 12:00am December 03, 2017 12:01amempagliflozin 25 mg oral tablet (3 sources)Sodium-Glucose Cotransporter 2 InhibitorStart: 12-23-2024 End: 84-56-8050uivp 1 tablet by mouth once dailyEmpagliflozin (Jardiance) 25 mg tablet Discontinued 25 MG PO Daily December 23, 2024 12:00am January 15, 2025 12:23pm On Hold: Plan to hold permanently given HD status per nephrology esomeprazole 40 mg delayed release oral capsule (9 sources)Proton Pump InhibitorStart: 08-18-2020 End: 24-39-2946hieg 1 capsule by mouth once dailyEsomeprazole Magnesium 40 mg capsule,delayed release(DR/EC) Discontinued 40 MG PO Daily July 12:00am December 29, 2024 12:20pmferrous sulfate 325 mg oral tablet (8 sources)Start: 08-25-2020 End: 54-32-7584Ugkhmyc Sulfate 325 mg (65 mg iron) tablet Discontinued 325 MG PO Every 48 hours August 25, 2020 12:00am December 29, 2024 12:20pm furosemide 40 mg oral tablet (10 sources)Loop DiureticStart: 08-25-2020 End: 54-82-6743qutn 1 tablet by mouth twice dailyFurosemide 40 mg Tablet Discontinued 40 MG PO BID@0800,1600 60 August 25, 2020 12:00am December 29, 2024 12:20pmStart: 22-74-2709pasj 40 mg by mouth once dailyFurosemide Active 40 MG Oral Daily January 05, 2019 2:10pmgabapentin 800 mg oral tablet (18 sources)Anti-epileptic AgentStart: 08-18-2020 End: 98-98-2078ncnz 1 tablet by mouth twice dailyGabapentin 800 mg tablet Discontinued 800 MG PO Twice daily August 18, 2020 12:00am August 25, 2020 12:34pmStart: 09-30-2017 End: 74-27-2732vokj 1 tablet by mouth twice dailyGabapentin 600 mg tablet Discontinued 600 MG PO Twice daily September 30, 2017 12:00am December 31, 2018 3:10pmhydrALAZINE hydrochloride 25 mg oral tablet (12 sources)Arteriolar VasodilatorStart: 12-29-2024 End: 37-07-9722dpit 1 tablet by mouth three times dailyHydralazine 25 mg Tablet Discontinued 25 MG PO Three times daily 90 December 29, 2024 12:00am S bibitemaddie 2024 12:23pmStart: 08-18-2020 End: 36-38-9695vmww 1 tablet by mouth three times dailyHydralazine 100 mg tablet Discontinued 100 MG PO Three times daily August 18, 2020 12:00am December 29, 2024 12:20pm3 ml insulin degludec 100 unt/ml pen injector (20 sources)Insulin AnalogStart: 11-08-2017 End: 66-73-0814Oxndxau Degludec (Tresiba Flextouch U-100) 100 unit/mL (3 mL) insulin pen Discontinued 200 UNIT SUBCUT Daily November 08, 2017 1:37pm December 29, 2024 12:20pmStart: 38-60-6275yhmwsh 100 [IU] by subcutaneous injection once dailyInsulin Degludec Active 100 UNIT Subcutaneous Daily November 08, 2017 1:37pm Start: 10-04-2017 End: 47-03-9783Jrkztgz Degludec (Tresiba Flextouch U-100 Insulin) 100 unit/mL (3 mL) insulin pen Discontinued 70 UNIT SUBCUT Daily 3 October 04, 2017 12:00am November 08, 2017 1:37pmStart: 09-30-2017 End: 57-04-9480qaalyx 200 [IU] by subcutaneous injection once dailyInsulin Degludec (Tresiba Flextouch U-200) 200 unit/mL (3 mL) insulin pen Discontinued 200 UNIT SUBCUT Daily September 30, 2017 12:00am October 04, 2017 12:34pminsulin degludec (TRESIBA FLEXTOUCH U-200) 200 unit/mL (3 mL) insulin pen Inject 100 Units under the skin in the morning. Active3 ml insulin detemir 100 unt/ml pen injector (3 sources)Insulin AnalogStart: 12-23-2024 End: 44-37-4033bzxgni 30 [IU] by subcutaneous injection at bedtimeInsulin Detemir U-100 100 unit/mL (3 mL) insulin pen Discontinued 30 UNIT SUBCUT Bedtime December 23, 2024 12:00am December 29, 2024 12:20pm3 ml insulin glargine 100 unt/ml / lixisenatide 0.033 mg/ml pen injector (20 sources)Insulin AnalogStart: 12-31-2018 End: 02-70-6741Dnnfdfr Glargine-Lixisenatide (Soliqua 100/33) 100 unit-33 mcg/mL Insulin Pen Discontinued 60 UNITSSUBCUT Daily December 31, 2018 12:00am December 29, 2024 12:20pmStart: 09-30-2017 End: 15-81-6681Lhngfqf Glargine-Lixisenatide (Soliqua 100/33) 100 unit-33 mcg/mL Insulin Pen Discontinued 70 UNIT SUBCUT Daily September 30, 2017 12:00am October 04, 2017 1:07pminject 60 [IU] by subcutaneous injection twice dailySoliqua 100/33 60 Units Subcutaneous TWICE A DAY Active3 ml insulin lispro 100 unt/ml pen injector (20 sources)Insulin AnalogStart: 11-08-2017 End: 50-04-9939Mzcsfob Lispro (Humalog Kwikpen Insulin) 100 unit/mL insulin pen Discontinued 50 UNIT SUBCUT THREE TIMES DAILY WITH MEALS November 08, 2017 1:37pm December 31, 2018 3:11pmStart: 10-04-2017 End: 18-35-4229Dhgqqvd Lispro (Humalog Kwikpen Insulin) 100 unit/mL Insulin Pen Discontinued 40 UNIT SUBCUT THREE TIMES DAILY WITH MEALS 3 October 04, 2017 1:10pm November 08, 2017 1:37pmStart: 09-30-2017 End: 71-31-1261Hxxwagk Lispro (Humalog Kwikpen Insulin) 100 unit/mL Insulin Pen Discontinued 50 UNIT SUBCUT THREE TIMES DAILY WITH MEALS September 30, 2017 12:00am October 04, 2017 1:11pmHumaLOG KwikPen 200 UNIT/ML as directed Subcutaneous SLIDING SCALE Activelinaclotide 0.145 mg oral capsule (9 sources)Guanylate Cyclase-C AgonistStart: 09-30-2017 End: 46-38-8446dyet 1 capsule by mouth once dailyLinaclotide 145 mcg capsule Discontinued 145 MCG PO Daily September 30, 2017 12:00am November 08, 2017 1:31pm losartan potassium 100 mg oral tablet (15 sources)Angiotensin 2 Receptor BlockerStart: 12-31-2018 End: 45-40-5847ftlf 1 tablet by mouth once dailyLosartan 100 mg Tablet Discontinued 100 MG PO Daily December 31, 2018 12:00am January 05, 2019 2:16pmtake 2 tablets by mouth in the morninglosartan (COZAAR) 50 mg tablet Take 2 tablets (100 mg total) by mouth in the morning. Activemagnesium oxide 400 mg oral tablet (9 sources)Start: 08-18-2020 End: 02-02-0439nrgw 1 tablet by mouth once dailyMagnesium Oxide 400 mg magnesium Tablet Discontinued 400 MG PO Daily August 18, 2020 12:00am December 29, 2024 12:20pmmethotrexate 2.5 mg oral tablet (16 sources)Folate Analog Metabolic InhibitorStart: 12-31-2018 End: 84-02-9827strw 10 mg by mouth every weekMethotrexate Sodium Discontinued 10 MG PO every week December 31, 2018 3:14pm August 19, 2020 11:01am Saturday Start: 12-31-2018 End: 41-04-8742kwja 4 tablets by mouth every weekMethotrexate Sodium 2.5 mg Tablet Discontinued 10 MG PO every week December 31, 2018 12:00am August 19, 2020 11:01am Saturdaytake 1 tablet by mouth every weekmethotrexate 2.5 mg chemo tablet Take 1 tablet by mouth once a week ActivemethylPREDNISolone 4 mg oral tablet (8 sources)CorticosteroidStart: 08-23-2020 End: 84-51-0933torp 1 tablet by mouth onceMethylprednisolone (Medrol (Sukh)) 4 mg tablets,dose pack Discontinued 0 PO .COMPLEX August 23, 2020 12:00am December 29, 2024 12:20pm orally per package directionsmetOLazone 10 mg oral tablet (9 sources)Thiazide-like DiureticStart: 09-30-2017 End: 41-94-7593llex 1 tablet by mouth twice dailyMetolazone 10 mg tablet Discontinued 10 MG PO Twice daily September 30, 2017 12:00am December 31, 2018 3:12pmOXcarbazepine 300 mg oral tablet (17 sources)Anti-epileptic AgentStart: 09-30-2017 End: 58-28-6431bqzt 1 tablet by mouth at bedtimeOxcarbazepine 300 mg tablet Discontinued 300 MG PO Bedtime September 30, 2017 12:00am December 29, 2024 12:20pmpotassium chloride 10 meq extended release oral tablet (17 sources)Start: 08-25-2020 End: 76-68-2284Qnyvnujfw Chloride (Klor-Con 10) 10 mEq Tablet Extended Release Discontinued 10 MEQ PO Daily August 25, 2020 12:00am December 29, 2024 12:20pmStart: 09-30-2017 End: 78-45-0950Mmleawkdk Chloride 20 mEq Tablet Extended Release Discontinued 20 MEQ PO As Directed September 30, 201712:00am December 31, 2018 3:13pmsodium bicarbonate 325 mg oral tablet (19 sources)Start: 12-23-2024 End: 48-44-3015qovb 1 tablet by mouth three times dailySodium Bicarbonate 325 mg tablet Discontinued 325 MG PO Three times daily December 23, 2024 12:00am January 15, 2025 12:24pmStart: 37-52-9889hqmo 325 mg by mouth once daily Sodium Bicarbonate Active 325 MG Oral Daily November 08, 2017 1:34pmStart: 11-08-2017 End: 40-98-7712iqzp 1 tablet by mouth twice dailySodium Bicarbonate 325 mg Tablet Discontinued 325 MG PO Twice daily November 08, 2017 12:00am August 25, 2020 12:34pmsulfamethoxazole 800 mg / trimethoprim 160 mg oral tablet (20 sources)Dihydrofolate Reductase Inhibitor Antibacterial, Sulfonamide AntimicrobialStart: 12-31-2018 End: 49-74-9281dmhn 1 tablet by mouth twice dailySulfamethoxazole-Trimethoprim (Bactrim Ds) 800-160 mg Tablet Discontinued 1 TAB PO Twice daily December 31, 2018 12:00am January 05, 2019 2:16pmStart: 09-30-2017 End: 45-38-8686utbr 1 tablet by mouth twice dailySulfamethoxazole-Trimethoprim 800-160 mg tablet Discontinued 1 TAB PO Twice daily September 30, 2017 12:00am October 04, 2017 12:33pmtamsulosin hydrochloride 0.4 mg oral capsule (20 sources)alpha-Adrenergic BlockerStart: 12-31-2018 End: 86-32-2200fkay 1 capsule by mouth once dailyTamsulosin (Flomax) 0.4 mg Capsule Discontinued 0.4 MG PO Daily December 31, 2018 12:00am December 29, 2024 12:20pmStart: 09-30-2017 End: 64-69-6555vupv 1 capsule by mouth once dailyTamsulosin (Flomax) 0.4 mg Capsule,Extended Release 24hr Discontinued 0.4 MG PO Daily September 30, 2017 12:00am November 08, 2017 1:33pmtraZODone hydrochloride 50 mg oral tablet (17 sources)Serotonin Reuptake InhibitorStart: 09-30-2017 End: 57-65-3982xybw 1 tablet by mouth at bedtimeTrazodone 50 mg tablet Discontinued 50 MG PO Bedtime September 30, 2017 12:00am December 29, 2024 12:20pm varenicline 1 mg oral tablet (15 sources)Partial Cholinergic Nicotinic AgonistStart: 09-30-2017 End: 98-08-9871pkmg 1 tablet by mouth once dailyVarenicline Tartrate 1 mg tablet Discontinued 1 MG PO Daily September 30, 2017 12:00am January 05, 2019 2:16pm vorapaxar 2.08 mg oral tablet (9 sources)Protease-activated Receptor-1 AntagonistStart: 09-30-2017 End: 83-58-7608fbxf 1 tablet by mouth once dailyVorapaxar 2.08 mg Tablet Discontinued 2.08 MG PO Daily September 30, 2017 12:00am November 08, 2017 1:36pm Problems Active Problems Problem ClassificationProblemDateDocumented DateEpisodic/ChronicAcute and unspecified renal failure (13 sources)Acute kidney failure, unspecified; Translations: [Acute kidney failure, unspecified]Onset: 22-75-4673IbvrynfdFfhddxzde infection; unspecified site (20 sources)Methicillin resistant Staphylococcus aureus infection; Translations: [Streptococcus agalactiae infection]26-30-0795OlpclmmaAzpmknl kidney disease (20 sources)Chronic kidney disease stage 4; Translations: [Chronic kidney disease, stage 4 (severe)]Onset: 03-21-2021 Resolved: 07-32-8835AqxuoveAdwfjyq kidney disease (2 sources)Chronic kidney disease; Translations: [Chronic kidney disease, stage 3 unspecified]Onset: 21-97-6542Rqjzzip obstructive pulmonary disease and bronchiectasis (20 sources)Chronic obstructive lung disease; Translations: [Chronic obstructive pulmonary disease, unspecified]Onset: 69-23-8941HavfvlhMbrdkkv ulcer of skin (17 sources)Non-pressure chronic ulcer of left heel and midfoot with fat layer exposed; Translations: [Non-pressure chronic ulcer of other part of left foot with unspecified severity]Onset: 96-79-5686JgeprpnIyvitybijakvr of surgical procedures or medical care (4 sources)Hemodialysis-associated hypotension; Translations: [Hypotension of hemodialysis]Onset: 653588-25-3990TmikrozPolnlhuwqffuy of surgical procedures or medical care (6 sources)Other complications of procedures, not elsewhere classified, initial encounter; Translations: [Other specified complications of surgical and medical care, not elsewhere classified, initial encounter]Onset: 45-07-2503Nbasqksb Congestive heart failure; nonhypertensive (1 source)Unspecified combined systolic (congestive) and diastolic (congestive) heart failure; Translations: [UNS COMB SYSTOLIC AND DIASTOLIC CHF]Onset: 25-45-7311WqqfddeIpmhldiy injury or internal injury (5 sources)Injury of kidney; Translations: [Acute kidney failure, unspecified] EpisodicDeficiency and other anemia (1 source)Anemia in chronic kidney disease; Translations: [Anemia in chronic kidney disease]ChronicDeficiency and other anemia (2 sources)Anemia in chronic kidney disease; Translations: [Anemia in chronic kidney disease]Onset: 03-21-2021 Resolved: 30-75-0152FxhvcfqWogbmfjvyw and other anemia (1 source)Anemia, unspecified; Translations: [ANEMIA UNSPECIFIED]Onset: 61-26-9130YfipmalhQezydvxm mellitus with complications (20 sources)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; Translations: [Type 2 diabetes mellitus with diabetic 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]Onset: 03-21-2021 Resolved: 22-03-8090SzvqcqdNmoyfsmu mellitus without complication (19 sources)Type 2 diabetes mellitus; Translations: [Diabetes mellitus]Onset: 970833-80-6847PxbuvwtIpdfhslj mellitus without complication (2 sources)Hyperglycemia; Translations: [Hyperglycemia, unspecified]Episodic Disorders of lipid metabolism (10 sources)Hyperlipidemia; Translations: [Hyperlipidemia, unspecified]Onset: 03-21-2021 Resolved: 63-39-9541MqjpfovOxwnpwzqkb disorders (20 sources)Gastroesophageal reflux disease; Translations: [Gastro-esophageal reflux disease without esophagitis]Onset: 09-60-4482LpgrhumFbxapqeol hypertension (19 sources)Hypertensive disorder; Translations: [Essential (primary) hypertension]Onset: 62-56-6056AvjoftcAfxud and electrolyte disorders (20 sources)Metabolic acidosis; Translations: [Acidosis]Onset: 12-23-2024 EpisodicFracture of neck of femur (hip) (20 sources)Fracture of bone of hip region; Translations: [Fracture of unspecified part of neck of unspecified femur, initial encounter for closed fracture]Onset: 270706-35-2770HfooexmvEllvwgyr of upper limb (10 sources)Fracture of distal end of radius; Translations: [Unspecified fracture of the lower end of unspecified radius, initial encounter for closed fracture]Onset: 754934-85-2923PvprtmauGpyxxity (7 sources)Critical lower limb ischemia ; Translations: [Atherosclerosis of [place] arteries of extremities with gangrene, left leg]Onset: 02-27-2024 38-35-7347AdhevuzGnhzlwahloajm symptoms and ill-defined conditions (2 sources)Dysuria; Translations: [Dysuria]Onset: 74-70-7645ZqqefhwuZfwklbaspxga with complications and secondary hypertension (20 sources)Chronic kidney disease due to hypertension; Translations: [Hypertensive chronic kidney disease withstage 1 through stage 4 chronic kidney disease, or unspecified chronic kidney disease]Onset: 03-21-2021 Resolved: 88-16-1824SztegfdZelwrsgnf arthritis and osteomyelitis (except that caused by tuberculosis or sexually transmitted disease) (2 sources)Other chronic osteomyelitis, left ankle and foot; Translations: [Other acute osteomyelitis, left tibia and fibula]Onset: 35-56-4622XjmbbpbDgxj disorders (1 source)Major depressive disorder, single episode, unspecified; Translations: [KILEY DEPRESS D/O SINGLE EPIS UNS]Onset: 55-35-3228CxtulxbIdlhif and vomiting (1 source)Nausea; Translations: [Nausea]08-78-2523XzysnhwqDavgzdgpjeo deficiencies (1 source)Vitamin D deficiency, unspecified; Translations: [Vitamin D deficiency, unspecified]Onset: 72-39-9804RenrpowRszvx acquired deformities (1 source)Contracture, left ankle; Translations: [CONTRACTURE LEFT ANKLE]Onset: 55-14-8236AghcgqiJsoyc aftercare (2 sources)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; Translations: [GLASS MAKER CURRENT USE OF INSULIN]Onset: 83-08-9186HtulfvktKqioc bone disease and musculoskeletal deformities (1 source)Acquired absence of left foot; Translations: [ACQUIRED ABSENCE OF LEFT FOOT]Onset: 34-90-4330JrdgxcgZbugo bone disease and musculoskeletal deformities (9 sources)Amputated foot; Translations: [Acquired absence of left foot]Onset: 546254-35-2645TkzhsafMboye bone disease and musculoskeletal deformities (9 sources)Amputated foot; Translations: [Acquired absence of right foot]Onset: 641146-01-3365ObbxbjaKwfaj bone disease and musculoskeletal deformities (10 sources)History of amputation of right foot; Translations: [Acquired absence of other right toe(s)]62-19-2192MagiuorjGfygm bone disease and musculoskeletal deformities (4 sources)Acquired absence of other right toe(s); Translations: [Other toe(s) amputation status]EpisodicOther bone disease and musculoskeletal deformities (1 source)Disorder of bone, unspecified; Translations: [DISORDER OF BONE UNSPECIFIED]Onset: 45-46-9697PppodbwjQgfut connective tissue disease (5 sources)Pain in left foot; Translations: [PAIN IN LEFT FOOT]Onset: 06-05-2022 EpisodicOther diseases of kidney and ureters (1 source)Hyperparathyroidism due to renal insufficiency; Translations: [Secondary hyperparathyroidism of renal origin]ChronicOther diseases of kidney and ureters (1 source)Secondary hyperparathyroidism of renal originOnset: 03-21-2021 Resolved: 60-60-4720YzgatdsMubtc hereditary and degenerative nervous system conditions (1 source)Other idiopathic peripheral autonomic neuropathy; Translations: [OTH IDIO PERIPH AUTONOM NEUROPATHY]Onset: 18-80-3708RypxfkrFdnzb hereditary and degenerative nervous system conditions (6 sources)Idiopathic peripheral autonomic neuropathy; Translations: [Other idiopathic peripheral autonomic neuropathy]Onset: 691194-44-4549Otlmnjr Other inflammatory condition of skin (19 sources)Psoriasis; Translations: [Psoriasis, unspecified]Onset: 01-24-2025 27-89-3634XxwkbfrRfvdm inflammatory condition of skin (6 sources)Psoriasis, unspecified; Translations: [Other psoriasis]Onset: 76-86-6025YqwjcboOtsul inflammatory condition of skin (1 source)Other psoriasis; Translations: [OTHER PSORIASIS]Onset: 06-27-2022 ChronicOther liver diseases (1 source)Liver disease, unspecified; Translations: [LIVER DISEASE UNSPECIFIED] Onset: 89-68-1908XwekngdRojcn lower respiratory disease (8 sources)History of pleural effusion; Translations: [Personal history of other diseases of the respiratory system]14-45-6558BaaelhtaOudyy lower respiratory disease (8 sources)Pleuritic pain; Translations: [Pleurodynia]75-49-8418YjrkuzbtZbbsg lower respiratory disease (3 sources)Personal history of other diseases of the respiratory system; Translations: [Personal history of other diseases of respiratory system]Episodic Other lower respiratory disease (3 sources)Pleurodynia; Translations: [Painful respiration]EpisodicOther nutritional; endocrine; and metabolic disorders (10 sources)Morbid obesity; Translations: [Morbid (severe) obesity due to excess calories]24-27-4536EoynuwqTnpae nutritional; endocrine; and metabolic disorders (5 sources)Morbid (severe) obesity due to excess calories; Translations: [Morbid obesity]Onset: 25-76-9374UcyubwwQhug-; endo-; and myocarditis; cardiomyopathy (except that caused by tuberculosis or sexually transmitted disease) (11 sources)Pericarditis; Translations: [Disease of pericardium, unspecified] EpisodicPeripheral and visceral atherosclerosis (20 sources)Peripheral vascular disease; Translations: [Peripheral vascular disease, unspecified]Onset: 21-39-0153TrytbafHicbzowr; pneumothorax; pulmonary collapse (20 sources)Thickening of pleura; Translations: [Fibrothorax]EpisodicPneumonia (except that caused by tuberculosis or sexually transmitted disease) (2 sources)Pneumonia; Translations: [Pneumonia, unspecified organism]Episodic Residual codes; unclassified (1 source)Postprocedural state finding; Translations: [Other specified postprocedural states]34-74-2400SpqkpagxVlsueiltwxi; intervertebral disc disorders; other back problems (12 sources)Spondylosis without myelopathy or radiculopathy, lumbar region; Translations: [Other intervertebraldisc degeneration, lumbar region]Onset: 38-49-3813CdydskiHwtxlwkky-related disorders (1 source)Smoker; Translations: [Nicotine dependence, unspecified, uncomplicated]ChronicUnclassified (1 source)History of amputation of right foot; Translations: [History of partial amputation of toe of right foot]Unclassified (1 source)CHRN KIDNEY DISEASE STG 3 UNSP; Translations: [CHRN KIDNEY DISEASE STG 3 UNSP]Onset: 67-36-4472Efqqhtdaoonq (1 source)CONTACT W/AND (SUSP) EXPOS COVID-19; Translations: [CONTACT W/AND (SUSP) EXPOS COVID-19]Onset: 56-17-0384Yxjhwxcaragy (6 sources)Please consult to manage Hemodialysis.Unclassified (6 [...] Translations: [Valgus deformity, not elsewhere classified,left ankle]Onset: 31-33-4438Cushhmrw Deficiency and other anemia (1 source)Iron deficiency anemia, unspecified; Translations: [IRON DEFICIENCY ANEMIA UNSPECIFIED]Onset: 86-10-3327ZorpctblJxgmh aftercare (7 sources)Other termite treater (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) drug therapy; Translations: [OTH HALF-WAY CURRENT DRUG THERAPY]Onset: 12-17-7546WstpyutnRthyz circulatory disease (1 source)Critical lower limb riohjxtc89-76-1563GsasrxpdMqozi connective tissue disease (1 source)Other muscle spasm; Translations: [OTHER MUSCLE SPASM]Onset: 94-88-9555BfodajeuVbwso diseases of veins and lymphatics (1 source)Venous insufficiency (chronic) (peripheral); Translations: [VENOUS INSUFF CHRONIC PERIPHERAL]Onset: 42-41-5006JikerddeYmuch injuries and conditions due to external causes (1 source)Other injury of unspecified body region, sequela; Translations: [OTHER INJURY UNS BODY REGION SEQ]Onset: 29-08-5952VqiivlrpBshhn lower respiratory disease (5 sources)Shortness of breath; Translations: [SHORTNESS OF BREATH]Onset: 00-34-1042AtxfkurnGvnbf lower respiratory disease (1 source)Other forms of dyspnea; Translations: [Other forms of dyspnea]Onset: 75-40-5140NuqpcwfgIzcrp screening for suspected conditions (not mental disorders or infectious disease) (1 source)Encounter for screening for malignant neoplasm of prostate; Translations: [Encounter for screening for malignant neoplasm of prostate]Onset: 92-55-2473GvlryoivJfhdi skin disorders (1 source)Nail dystrophy; Translations: [NAIL DYSTROPHY]Onset: 06-27-2022 EpisodicResidual codes; unclassified (1 source)Localized edema; Translations: [LOCALIZED EDEMA]Onset: 06-05-2022 EpisodicResidual codes; unclassified (1 source)Acquired absence of other specified parts of digestive tract; Translations: [ACQ ABSENCE OTH PART DIGESTV TRACT]Onset: 29-77-1400Oyfhlnaw Screening and history of mental health and substance abuse codes (1 source)Personal history of nicotine dependence; Translations: [PERSONAL HISTORY OF NICOTINE DEPEND]Onset: 72-90-6625HsmwdfthSjti and subcutaneous tissue infections (14 sources)Abscess of face; Translations: [Abscess of neck]Onset: 09-29-2017 45-84-4725YnnprruzQrhjgzlmyrb; intervertebral disc disorders; other back problems (4 sources)Muscle spasm of back; Translations: [MUSCLE SPASM OF BACK]Onset: 95-70-8823Xoqpirww Results Test NameValueInterpretationReference RangeFacilityGlucose Poct Glucometerson 86-83-3199Redoljt7Msi6: Cleaned MeterNoFormerly [facility], [facility] Physician GroupComment on above:Result Comment: PERFORMED BY: [address] [place] [address] PATHOLOGIST SHUTTLER CAR CARLOS BIRMINGHAM M.D.Performed By: #### HEPACUTE, HBCAB, HBSAB #### [facility] ,Glucose [Mass/Vol]85 mg/dLTampa Shriners Hospital Physician GroupComment on above: Result Comment: Random Glucose Reference Range is dependent on time and content of last meal. Glucose of more than 200 mg/dL in a nonstressed, ambulatory subject supports the diagnosis of Diabetes Mellitus.Performed By: #### HEPACUTE, HBCAB, HBSAB #### [facility] ,Glucose [Mass/Vol]85 mg/dLNoFormerly [facility], [facility] Physician GroupComment on above: Result Comment: Random Glucose Reference Range is dependent on time and content of last meal. Glucose of more than 200 mg/dL in a nonstressed, ambulatory subject supports the diagnosis of Diabetes Mellitus. PERFORMED BY: [place] [id number] PATHOLOGIST SHUTTLER CAR CARLOS BIRMINGHAM M.D.Performed By: #### HEPACUTE, HBCAB, HBSAB #### [facility] ,Glucose Poct Glucometerson 86-04-7110Lebpydf [Mass/Vol]296 mg/dLNoFormerly [facility], [facility] Physician GroupComment on above:Result Comment: Random Glucose Reference Range is dependent on time and content of last meal. Glucose of more than 200 mg/dL in a nonstressed, ambulatory subject supports the diagnosis of Diabetes Mellitus. PERFORMED BY: [place] [id number] PATHOLOGIST SHUTTLER CAR CARLOS BIRMINGHAM M.D.Performed By: #### HEPACUTE, HBCAB, HBSAB #### [facility] ,Glucose [Mass/Vol]131 mg/dLTampa Shriners Hospital Physician GroupComment on above: Result Comment: Random Glucose Reference Range is dependent on time and content of last meal. Glucose of more than 200 mg/dL in a nonstressed, ambulatory subject supports the diagnosis of Diabetes Mellitus. PERFORMED BY: [place] [id number] PATHOLOGIST SHUTTLER CAR CARLOS BIRMINGHAM M.D.Performed By: #### HEPACUTE, HBCAB, HBSAB #### [facility] ,Glucose [Mass/Vol]116 mg/dLTampa Shriners Hospital Physician GroupComment on above: Result Comment: Random Glucose Reference Range is dependent on time and content of last meal. Glucose of more than 200 mg/dL in a nonstressed, ambulatory subject supports the diagnosis of Diabetes Mellitus. PERFORMED BY: [place] [id number] PATHOLOGIST SHUTTLER CAR CARLOS BIRMINGHAM M.D.Performed By: #### GLULS #### Point of Care testing ,Glucose [Mass/Vol]118 mg/dLTampa Shriners Hospital Physician GroupComment on above: Result Comment: Random Glucose Reference Range is dependent on time and content of last meal. Glucose of more than 200 mg/dL in a nonstressed, ambulatory subject supports the diagnosis of Diabetes Mellitus. PERFORMED BY: [place] [address] PATHOLOGIST SHUTTLER CAR CARLOS BIRMINGHAM M.D.Performed By: #### GLULS #### Point of Care testing ,Glucose Poct Glucometerson 58-22-1916Gnfzqsr [Mass/Vol]75 mg/dLNoFormerly [facility], [facility] Physician GroupComment on above:Result Comment: Random Glucose Reference Range is dependent on time and content of last meal. Glucose of more than 200 mg/dL in a nonstressed, ambulatory subject supports the diagnosis of Diabetes Mellitus. PERFORMED BY: [place] [id number] PATHOLOGIST SHUTTLER CAR CARLOS BIRMINGHAM M.D.Performed By: #### GLULS #### Point of Care testing ,Glucose [Mass/Vol]89 mg/dLNoFormerly [facility], [facility] Physician GroupComment on above: Result Comment: Random Glucose Reference Range is dependent on time and content of last meal. Glucose of more than 200 mg/dL in a nonstressed, ambulatory subject supports the diagnosis of Diabetes Mellitus. PERFORMED BY: [place] [id number] PATHOLOGIST SHUTTLER CAR CARLOS BIRMINGHAM M.D.Performed By: #### HEPACUTE, HBCAB, HBSAB #### [facility] ,Glucose [Mass/Vol]114 mg/dLTampa Shriners Hospital Physician GroupComment on above: Result Comment: Random Glucose Reference Range is dependent on time and content of last meal. Glucose of more than 200 mg/dL in a nonstressed, ambulatory subject supports the diagnosis of Diabetes Mellitus. PERFORMED BY: [address] [address] PATHOLOGIST SHUTTLER CAR CARLOS BIRMINGHAM M.D.Performed By: #### GLULS #### Point of Care testing ,Glucose [Mass/Vol]99 mg/dLNoFormerly [facility], [facility] Physician [facility] GulfportComment on above: Result Comment: Random Glucose Reference Range is dependent on time and content of last meal. Glucose of more than 200 mg/dL in a nonstressed, ambulatory subject supports the diagnosis of Diabetes Mellitus. PERFORMED BY: [place] [id number] PATHOLOGIST SHUTTLER CAR CARLOS BIRMINGHAM M.D.Performed By: #### GLULS #### Point of Care testing ,Glucose [Mass/Vol]80 mg/dLTampa Shriners Hospital Physician GroupComment on above: Result Comment: Random Glucose Reference Range is dependent on time and content of last meal. Glucose of more than 200 mg/dL in a nonstressed, ambulatory subject supports the diagnosis of Diabetes Mellitus. PERFORMED BY: [address] [address] PATHOLOGIST SHUTTLER CAR CARLOS BIRMINGHAM M.D.Performed By: #### HEPACUTE, HBCAB, HBSAB #### [facility] ,Glucose [Mass/Vol]66 mg/dLNoFormerly [facility], [facility] Physician GroupComment on above: Result Comment: Random Glucose Reference Range is dependent on time and content of last meal. Glucose of more than 200 mg/dL in a nonstressed, ambulatory subject supports the diagnosis of Diabetes Mellitus. PERFORMED BY: [address] [address] PATHOLOGIST SHUTTLER CAR CARLOS BIRMINGHAM M.D.Performed By: #### GLULS #### Point of Care testing ,Renal Function Panelon 10-99-5069Jiisvjm [Mass/Vol]3.3 g/dLLow3.5-5.7The [facility] Physician GroupComment on above:Performed By: #### GLULS #### Point of Care testing ,Anion gap [Moles/Vol]13.4 mmol/LNormal6.0-15.0[facility] Comment on above:Performed By: #### GLULS #### Point of Care testing ,Calcium [Mass/Vol]10.1 mg/dLNormal8.6-10.3The [facility] Physician GroupComment on above:Performed By: #### GLULS #### Point of Care testing ,Chloride [Moles/Vol]98 mmol/RXgqcas45-441Qrl [facility] Physician GroupComment on above:Performed By: #### GLULS #### Point of Care testing ,CO2 [Moles/Vol]26.9 mmol/EPrlfea98.0-31.0The [facility] Physician GroupComment on above:Performed By: #### GLULS #### Point of Care testing ,Creatinine [Mass/Vol]5.69 mg/dLHigh0.70-1.30The [facility] Comment on above:Performed By: #### GLULS #### Point of Care testing ,Creatinine Clr Calc Gvhapiah54.17NormalThe [facility] Physician GroupComment on above:Result Comment: PERFORMED BY: [place] [address] [address] [place] [address] PATHOLOGIST SHUTTLER CAR CARLOS BIRMINGHAM M.D.Performed By: #### GLULS #### Point of Care testing ,GFR/1.73 sq M.predicted MDRD (S/P/Bld) [Vol rate/Area]10.432 mL/min/{1.73_m2} NormalThe [facility] Physician GroupComment on above:Performed By: #### GLULS #### Point of Care testing ,Glucose [Mass/Vol]78 mg/jUQtgjau63-862Peg [facility] Physician GroupComment on above:Result Comment: Random Glucose Reference Range is dependent on time and content of last meal. Glucose of more than 200 mg/dL in a nonstressed, ambulatory subject supports the diagnosis of Diabetes Mellitus. ADA recommended reference rangePerformed By: #### GLULS #### Point of Care testing ,Phosphate [Mass/Vol]4.5 mg/dLNormal2.5-4.5The [facility] Physician GroupComment on above:Performed By: #### GLULS #### Point of Care testing ,Potassium [Moles/Vol]4.3 mmol/LNormal3.5-5.1The [facility] Comment on above:Performed By: #### GLULS #### Point of Care testing ,Sodium [Moles/Vol]134 mmol/KPft958-510Jxx [facility] Physician GroupComment on above:Performed By: #### GLULS #### Point of Care testing ,Urea nitrogen [Mass/Vol]35 mg/dLHigh7-25ThBear Lake Memorial Hospital Physician GroupComment on above:Performed By: #### GLULS #### Point of Care testing ,Glucose Poct Glucometerson 88-79-9669Rygddet [Mass/Vol]130 mg/dLNormHCA Florida Suwannee Emergency Physician GroupComment on above:Result Comment: Random Glucose Reference Range is dependent on time and content of last meal. Glucose of more than 200 mg/dL in a nonstressed, ambulatory subject supports the diagnosis of Diabetes Mellitus. PERFORMED BY: [place] [id number] PATHOLOGIST SHUTTLER CAR CARLOS BIRMINGHAM M.D.Performed By: #### HEPACUTE, HBCAB, HBSAB #### [facility] ,Glucose [Mass/Vol]136 mg/dLNoFormerly [facility], [facility] Physician [facility] GulfportComment on above: Result Comment: Random Glucose Reference Range is dependent on time and content of last meal. Glucose of more than 200 mg/dL in a nonstressed, ambulatory subject supports the diagnosis of Diabetes Mellitus. PERFORMED BY: [address] [address] PATHOLOGIST SHUTTLER CAR CARLOS BIRMINGHAM M.D.Performed By: #### HEPACUTE, HBCAB, HBSAB #### [facility] ,Glucose [Mass/Vol]105 mg/dLTampa Shriners Hospital Physician [facility] GulfportComment on above: Result Comment: Random Glucose Reference Range is dependent on time and content of last meal. Glucose of more than 200 mg/dL in a nonstressed, ambulatory subject supports the diagnosis of Diabetes Mellitus. PERFORMED BY: [address] [address] PATHOLOGIST SHUTTLER CAR CARLOS BIRMINGHAM M.D.Performed By: #### HEPACUTE, HBCAB, HBSAB #### [facility] ,Glucose [Mass/Vol]69 mg/dLTampa Shriners Hospital Physician GroupComment on above: Result Comment: Random Glucose Reference Range is dependent on time and content of last meal. Glucose of more than 200 mg/dL in a nonstressed, ambulatory subject supports the diagnosis of Diabetes Mellitus. PERFORMED BY: [place] [address] PATHOLOGIST SHUTTLER CAR CARLOS BIRMINGHAM M.D.Performed By: #### GLULS #### Point of Care testing ,Zxjlkpx9XkowjnLto Firelands Physician GroupComment on above:Result Comment: Glu2: WILL NOTIFY DR/RN PERFORMED BY: [place] [address] PATHOLOGIST SHUTTLER CAR CARLOS BIRMINGHAM M.D.Performed By: #### HEPACUTE, HBCAB, HBSAB #### [facility] ,Glucose [Mass/Vol]48 mg/dLOff scale lowAdventhealth Sebring Physician GroupComment on above:Result Comment: Random Glucose Reference Range is dependent on time and content of last meal. Glucose of more than 200 mg/dL in a nonstressed, ambulatory subject supports the diagnosis of Diabetes Mellitus.Performed By: #### HEPACUTE, HBCAB, HBSAB #### [facility] ,Glucose [Mass/Vol]89 mg/dLTampa Shriners Hospital Physician GroupComment on above: Result Comment: Random Glucose Reference Range is dependent on time and content of last meal. Glucose of more than 200 mg/dL in a nonstressed, ambulatory subject supports the diagnosis of Diabetes Mellitus. PERFORMED BY: [place] [address] PATHOLOGIST SHUTTLER CAR CARLOS BIRMINGHAM M.D.Performed By: #### GLULS #### Point of Care testing ,XR hip RT min 2V(w/wo pelvis)*on 45-99-2163RW hip RT min 2V(w/wo pelvis)* [facility] Main [place] [id number] XRay Report Signed Patient: Rashard Lyman MR#: [id number] : 1960 Acct:[id number] Age/Sex: 64 / M ADM Date: 12/30/24 Loc: Room: [address] [place] [address] Type: ADM IN Attending Dr: Clayton Cardenas [...] Santiago M.D. 01/12/2025 4:27 PM Dictation Location: [place] [address] Transcribed By: [facility] 01/12/251626 Dictated By: Ari Santiago DO 01/12/251625 Signed By: 01/12/25 [facility] Physician GroupXR knee RT 2Von 40-33-9650BX knee RT 2V[facility] Main [place] [id number] XRay Report Signed Patient: Rashard Lyman MR#: [id number] : 1960 Acct:[id number] Age/Sex: 64 / M ADM Date: 12/30/24 Loc: Room: [address] [place] [address] Type: ADM IN Attending Dr: Clayton Cardenas [...] Santiago M.D. 01/12/2025 4:29 PM Dictation Location: [place] [address] Transcribed By: [facility] 01/12/25 1629 Dictated By: Ari Santiago DO 01/12/25 1628 Signed By: 01/12/25 1629NoFormerly [facility], [facility] Physician [facility] GulfportXR wrist RT 2Von 82-72-1003CV wrist RT 2V[facility] [place] [address] XRay Report Signed Patient: Rashard Lyman MR#: [id number] : 1960 Acct:[id number] Age/Sex: 64 / M ADM Date: 12/30/24 Loc: Room: [address] [place] [address] Type: ADM IN Attending Dr: Clayton Cardenas [...] Santiago M.D. 01/12/2025 4:30 PM Dictation Location: [place] [address] Transcribed By: [facility] 01/12/25 1630 Dictated By: Ari Santiago DO 01/12/25 1629 Signed By: 01/12/25 1630NoFormerly [facility], [facility] Physician [facility] GulfportGlucose Poct Glucometerson 88-99-2914Swtmvjj [Mass/Vol]182 mg/dLNoSelect Medical Specialty Hospital - CincinnatiComment on above:Result Comment: Random Glucose Reference Range is dependent on time and content of last meal. Glucose of more than 200 mg/dL in a nonstressed, ambulatory subject supports the diagnosis of Diabetes Mellitus. PERFORMED BY: [place] [address] PATHOLOGIST SHUTTLER CAR CARLOS BIRMINGHAM M.D.Performed By: #### HEPACUTE, HBCAB, HBSAB #### [facility] ,Glucose [Mass/Vol]98 mg/dLNoFormerly [facility], [facility] Physician GroupComment on above: Result Comment: Random Glucose Reference Range is dependent on time and content of last meal. Glucose of more than 200 mg/dL in a nonstressed, ambulatory subject supports the diagnosis of Diabetes Mellitus. PERFORMED BY: [place] [phone] PATHOLOGIST SHUTTLER CAR CARLOS BIRMINGHAM M.D.Performed By: #### GLULS #### Point of Care testing ,Bxdfeqv8Fry2: Cleaned MeterNoFormerly [facility], [facility] Physician GroupComment on above: Result Comment: PERFORMED BY: [place] [phone] PATHOLOGIST SHUTTLER CAR CARLOS BIRMINGHAM M.D.Performed By: #### RENAL #### [facility] [address] [place] [address] USAGlucose [Mass/Vol]97 mg/dLNoFormerly [facility], [facility] Physician GroupComment on above:Result Comment: Random Glucose Reference Range is dependent on time and content of last meal. Glucose of more than 200 mg/dL in a nonstressed, ambulatory subject supports the diagnosis of Diabetes Mellitus.Performed By: #### RENAL #### [facility] [address] [place] [address] USAGlucose [Mass/Vol]114 mg/dLTampa Shriners Hospital Physician GroupComment on above:Result Comment: Random Glucose Reference Range is dependent on time and content of last meal. Glucose of more than 200 mg/dL in a nonstressed, ambulatory subject supports the diagnosis of Diabetes Mellitus. PERFORMED BY: [place] [address] PATHOLOGIST SHUTTLER CAR CARLOS BIRMINGHAM M.D.Performed By: #### HEPACUTE, HBCAB, HBSAB #### [facility] ,Renal Function Panelon 66-83-4878Byqbrvj [Mass/Vol]3.0 g/dLLow3.5-5.7The [facility] Physician GroupComment on above:Performed By: #### HEPACUTE, HBCAB, HBSAB #### [facility] ,Anion gap [Moles/Vol]12.8 mmol/LNormal6.0-15.0The [facility] Physician Group Comment on above:Performed By: #### HEPACUTE, HBCAB, HBSAB #### [facility] ,Calcium [Mass/Vol]9.9 mg/dLNormal8.6-10.3The [facility] Physician GroupComment on above:Performed By: #### HEPACUTE, HBCAB, HBSAB #### [facility] ,Chloride [Moles/Vol]99 mmol/QScvfoo02-047Tbc [facility] Physician GroupComment on above:Performed By: #### HEPACUTE, HBCAB, HBSAB #### [facility] ,CO2 [Moles/Vol]28.7 mmol/UDxgdam48.0-31.0The [facility] Physician GroupComment on above:Performed By: #### HEPACUTE, HBCAB, HBSAB #### [facility] ,Creatinine [Mass/Vol]6.77 mg/dLHigh0.70-1.30The [facility]ician Group Comment on above:Performed By: #### HEPACUTE, HBCAB, HBSAB #### [facility] ,Creatinine Clr Calc Lkveuznq46.34NormalThBear Lake Memorial Hospital Physician GroupComment on above:Result Comment: PERFORMED BY: [place] [address] [place] [address] PATHOLOGIST SHUTTLER CAR CARLOS BIRMINGHAM M.D.Performed By: #### HEPACUTE, HBCAB, HBSAB #### [facility] ,GFR/1.73 sq M.predicted MDRD (S/P/Bld) [Vol rate/Area]8.468 mL/min/{1.73_m2} NormalThe [facility] Hospital Physician GroupComment on above:Performed By: #### HEPACUTE, HBCAB, HBSAB #### [facility] ,Glucose [Mass/Vol]115 mg/kZVexu80-204Yws [facility] Physician GroupComment on above:Result Comment: Random Glucose Reference Range is dependent on time and content of last meal. Glucose of more than 200 mg/dL in a nonstressed, ambulatory subject supports the diagnosis of Diabetes Mellitus. ADA recommended reference rangePerformed By: #### HEPACUTE, HBCAB, HBSAB #### [facility] ,Phosphate [Mass/Vol]4.5 mg/dLNormal2.5-4.5The [facility] Physician GroupComment on above:Performed By: #### HEPACUTE, HBCAB, HBSAB #### [facility] ,Potassium [Moles/Vol]4.5 mmol/LNormal3.5-5.1The [facility] Comment on above:Result Comment: Hemolysis is present at a level that could interfere with the result. Contact lab if redraw is requiredPerformed By: #### HEPACUTE, HBCAB, HBSAB #### [facility] ,Sodium [Moles/Vol]136 mmol/SSbstsm519-253Riu [facility] Physician GroupComment on above:Performed By: #### HEPACUTE, HBCAB, HBSAB #### [facility] ,Urea nitrogen [Mass/Vol]44 mg/dLHigh7-25The [facility] Physician GroupComment on above:Performed By: #### HEPACUTE, HBCAB, HBSAB #### [facility] ,Glucose Poct Glucometerson 71-09-3124Idiekxr [Mass/Vol]180 mg/dLNormalThe [facility] Physician GroupComment on above:Result Comment: Random Glucose Reference Range is dependent on time and content of last meal. Glucose of more than 200 mg/dL in a nonstressed, ambulatory subject supports the diagnosis of Diabetes Mellitus. PERFORMED BY: [place] [address] [place] [address] PATHOLOGIST SHUTTLER CAR CARLOS BIRMINGHAM M.D.Performed By: #### RENAL #### [facility] [address] [place] [address] USAGlucose [Mass/Vol]111 mg/dLTampa Shriners Hospital Physician GroupComment on above:Result Comment: Random Glucose Reference Range is dependent on time and content of last meal. Glucose of more than 200 mg/dL in a nonstressed, ambulatory subject supports the diagnosis of Diabetes Mellitus. PERFORMED BY: [place] [address] PATHOLOGIST SHUTTLER CAR CARLOS BIRMINGHAM M.D.Performed By: #### HEPACUTE, HBCAB, HBSAB #### [facility] ,Fcflkvq2Mmx6: Cleaned MeterNoRegency Hospital Cleveland East GroupComment on above: Result Comment: PERFORMED BY: [place] [address] PATHOLOGIST SHUTTLER CAR CARLOS BIRMINGHAM M.D.Performed By: #### HEPACUTE, HBCAB, HBSAB #### [facility] ,Glucose [Mass/Vol]130 mg/dLNoFormerly [facility], [facility] Physician GroupComment on above: Result Comment: Random Glucose Reference Range is dependent on time and content of last meal. Glucose of more than 200 mg/dL in a nonstressed, ambulatory subject supports the diagnosis of Diabetes Mellitus.Performed By: #### HEPACUTE, HBCAB, HBSAB #### [facility] ,Glucose [Mass/Vol]79 mg/dLTampa Shriners Hospital Physician GroupComment on above: Result Comment: Random Glucose Reference Range is dependent on time and content of last meal. Glucose of more than 200 mg/dL in a nonstressed, ambulatory subject supports the diagnosis of Diabetes Mellitus. PERFORMED BY: [place] [address] PATHOLOGIST SHUTTLER CAR CARLOS BIRMINGHAM M.D.Performed By: #### RENAL #### [place] [address] USAGlucose Poct Glucometerson 46-23-7020Kszvadf [Mass/Vol]187 mg/dLNoFormerly [facility], [facility] Physician GroupComment on above:Result Comment: Random Glucose Reference Range is dependent on time and content of last meal. Glucose of more than 200 mg/dL in a nonstressed, ambulatory subject supports the diagnosis of Diabetes Mellitus. PERFORMED BY: [address] [place] [id number] PATHOLOGIST SHUTTLER CAR CARLOS BIRMINGHAM M.D.Performed By: #### HEPACUTE, HBCAB, HBSAB #### [facility] ,[id number]: Cleaned MeterTampa Shriners Hospital Physician GroupComment on above: Result Comment: PERFORMED BY: [place] [address] PATHOLOGIST SHUTTLER CAR CARLOS BIRMINGHAM M.D.Performed By: #### HEPACUTE, HBCAB, HBSAB #### [facility] ,Glucose [Mass/Vol]198 mg/dLTampa Shriners Hospital Physician GroupComment on above: Result Comment: Random Glucose Reference Range is dependent on time and content of last meal. Glucose of more than 200 mg/dL in a nonstressed, ambulatory subject supports the diagnosis of Diabetes Mellitus.Performed By: #### HEPACUTE, HBCAB, HBSAB #### [facility] ,[id number]: Cleaned MeterTampa Shriners Hospital Physician GroupComment on above: Result Comment: PERFORMED BY: [place] [id number] PATHOLOGIST SHUTTLER CAR CARLOS BIRMINGHAM M.D.Performed By: #### GLULS #### Point of Care testing ,Glucose [Mass/Vol]101 mg/dLTampa Shriners Hospital Physician GroupComment on above: Result Comment: Random Glucose Reference Range is dependent on time and content of last meal. Glucose of more than 200 mg/dL in a nonstressed, ambulatory subject supports the diagnosis of Diabetes Mellitus.Performed By: #### GLULS #### Point of Care testing ,Vsoyntv5Vdx6: Cleaned MeterTampa Shriners Hospital Physician GroupComment on above: Result Comment: PERFORMED BY: [address] [place] [address] PATHOLOGIST SHUTTLER CAR CARLOS BIRMINGHAM M.D.Performed By: #### GLULS #### Point of Care testing ,Glucose [Mass/Vol]61 mg/dLNormalThe [facility] Physician GroupComment on above: Result Comment: Random Glucose Reference Range is dependent on time and content of last meal. Glucose of more than 200 mg/dL in a nonstressed, ambulatory subject supports the diagnosis of Diabetes Mellitus.Performed By: #### GLULS #### Point of Care testing ,Complete Blood Count Auto Diffon 16-07-9232Diqpipaft (Bld) [#/Vol]0.1 10*3/uL Normal0.0-0.2The [facility] Physician GroupComment on above:Result Comment: PERFORMED BY: [facility] [address] [place] [address] PATHOLOGIST SHUTTLER CAR CARLOS BIRMINGHAM M.D.Performed By: #### HEPACUTE, HBCAB, HBSAB #### [facility] ,Basophils/100 WBC (Bld)1.1 %Normal.The [facility] Physician GroupComment on above:Performed By: #### HEPACUTE, HBCAB, HBSAB #### [facility] ,Eosinophils (Bld) [#/Vol]0.5 10*3/uLHigh0.0-0.45The [facility]ician Group Comment on above:Performed By: #### HEPACUTE, HBCAB, HBSAB #### [facility] ,Eosinophils/100 WBC (Bld)6.1 %Normal.The [facility] Physician GroupComment on above:Performed By: #### HEPACUTE, HBCAB, HBSAB #### [facility] ,Erythrocyte distribution width (RBC) [Ratio]14.5 %Vvdcrr63.0-14.8The [facility] Physician GroupComment on above:Performed By: #### HEPACUTE, HBCAB, HBSAB #### [facility] ,Hematocrit (Bld) [Volume fraction]24.9 %Low38.8-50.0The [facility] Physician GroupComment on above:Performed By: #### HEPACUTE, HBCAB, HBSAB #### [facility] ,Hemoglobin (Bld) [Mass/Vol]8.2 g/dLLow13.0-17.0The [facility] Comment on above:Performed By: #### HEPACUTE, HBCAB, HBSAB #### [facility] ,Lymphocytes (Bld) [#/Vol]1.8 10*3/uLNormal1.00-4.8The [facility] Comment on above:Performed By: #### HEPACUTE, HBCAB, HBSAB #### [facility] ,Lymphocytes/100 WBC (Bld)21.3 %Normal.The [facility] Physician GroupComment on above:Performed By: #### HEPACUTE, HBCAB, HBSAB #### [facility] ,MCH (RBC) [Entitic mass]29.3 reJmxvvm49.5-35.2The [facility] Comment on above:Performed By: #### HEPACUTE, HBCAB, HBSAB #### [facility] ,MCV (RBC) [Entitic vol]88.6 rZTcuyus67.5-101The [facility] Comment on above:Performed By: #### HEPACUTE, HBCAB, HBSAB #### [facility] ,Mean Corpuscular HGB Conc33.0 g/fFWytkib20.5-35.6The [facility] Comment on above:Performed By: #### HEPACUTE, HBCAB, HBSAB #### [facility] ,Monocytes (Bld) [#/Vol]0.9 10*3/uLHigh0.0-0.8The [facility] Comment on above:Performed By: #### HEPACUTE, HBCAB, HBSAB #### [facility] ,Monocytes/100 WBC (Bld)10.9 %Normal.The [facility] Physician GroupComment on above:Performed By: #### HEPACUTE, HBCAB, HBSAB #### [facility] ,Neutrophils (Bld) [#/Vol]5.1 10*3/uLNormal1.8-7.7The [facility] Comment on above:Performed By: #### HEPACUTE, HBCAB, HBSAB #### [facility] ,Neutrophils/100 WBC (Bld)60.6 %Normal.The [facility] Physician GroupComment on above:Performed By: #### HEPACUTE, HBCAB, HBSAB #### [facility] ,NRBC%0.1 /100{WBC}Normal0-0.5The [facility] Physician GroupComment on above: Performed By: #### HEPACUTE, HBCAB, HBSAB #### [facility] ,Platelet mean volume (Bld) [Entitic vol]6.0 fLLow6.6-10.1The [facility] Physician GroupComment on above:Performed By: #### HEPACUTE, HBCAB, HBSAB #### [facility] ,Platelets (Bld) [#/Vol]370 10*3/fASvyxjn813-678Fea [facility] Comment on above:Performed By: #### HEPACUTE, HBCAB, HBSAB #### [facility] ,RBC (Bld) [#/Vol]2.82 10*6/uLLow3.90-5.60The [facility] Physician GroupComment on above:Performed By: #### HEPACUTE, HBCAB, HBSAB #### [facility] ,WBC (Bld) [#/Vol]8.4 10*3/uLNormal4.1-10.5The [facility] Physician GroupComment on above:Performed By: #### HEPACUTE, HBCAB, HBSAB #### [facility] ,White Blood Count8.4 [CFU]/mLNormal4.1-10.5The [facility] Physician GroupComment on above:Performed By: #### HEPACUTE, HBCAB, HBSAB #### [facility] ,Glucose Poct Glucometerson 48-12-3329Hgswrwg [Mass/Vol]207 mg/dLTampa Shriners Hospital Physician GroupComment on above:Result Comment: Random Glucose Reference Range is dependent on time and content of last meal. Glucose of more than 200 mg/dL in a nonstressed, ambulatory subject supports the diagnosis of Diabetes Mellitus. PERFORMED BY: [phone] PATHOLOGIST SHUTTLER CAR CARLOS BIRMINGHAM M.D.Performed By: #### RENAL #### [facility] [address] [place] [address] USAGlucose [Mass/Vol]99 mg/dLTampa Shriners Hospital Physician GroupComment on above:Result Comment: Random Glucose Reference Range is dependent on time and content of last meal. Glucose of more than 200 mg/dL in a nonstressed, ambulatory subject supports the diagnosis of Diabetes Mellitus. PERFORMED BY: [place] [phone] PATHOLOGIST SHUTTLER CAR CARLOS BIRMINGHAM M.D.Performed By: #### RENAL, MG #### [facility] [address] [place] [address] WJKHscjjjb7Zxv9: Cleaned MeterTampa Shriners Hospital Physician GroupComment on above:Result Comment: PERFORMED BY: [place] [phone] PATHOLOGIST SHUTTLER CAR CARLOS BIRMINGHAM M.D.Performed By: #### GLULS #### Point of Care testing ,Glucose [Mass/Vol]122 mg/dLTampa Shriners Hospital Physician GroupComment on above: Result Comment: Random Glucose Reference Range is dependent on time and content of last meal. Glucose of more than 200 mg/dL in a nonstressed, ambulatory subject supports the diagnosis of Diabetes Mellitus.Performed By: #### GLULS #### Point of Care testing ,Jvjqzpg7Hhs0: Cleaned MeterNoFormerly [facility], [facility] Physician GroupComment on above: Result Comment: PERFORMED BY: [place] [address] PATHOLOGIST SHUTTLER CAR CARLOS BIRMINGHAM M.D.Performed By: #### HEPACUTE, HBCAB, HBSAB #### [facility] ,Glucose [Mass/Vol]87 mg/dLNormalThe [facility] Physician GroupComment on above: Result Comment: Random Glucose Reference Range is dependent on time and content of last meal. Glucose of more than 200 mg/dL in a nonstressed, ambulatory subject supports the diagnosis of Diabetes Mellitus.Performed By: #### HEPACUTE, HBCAB, HBSAB #### [facility] ,Renal Function Panelon 28-32-8582Tnmxzwf [Mass/Vol]3.1 g/dLLow3.5-5.7The [facility] Physician GroupComment on above:Performed By: #### RENAL #### [facility] [address] [place] [address] USAAnion gap [Moles/Vol]11.9 mmol/LNormal6.0-15.0The [facility] Physician GroupComment on above:Performed By: #### RENAL #### [facility] [address] [place] [address] USACalcium [Mass/Vol]10.4 mg/dLHigh8.6-10.3The [facility] Physician GroupComment on above:Performed By: #### RENAL #### [facility] [address] [place] [address] USAChloride [Moles/Vol]99 mmol/UEkvfvu37-015Zoe [facility] Physician GroupComment on above:Performed By: #### RENAL #### [facility] [address] [place] [address] USACO2 [Moles/Vol]27.2 mmol/BSflaoq92.0-31.0The [facility] Physician GroupComment on above:Performed By: #### RENAL #### [facility] [address] [place] [address] USACreatinine [Mass/Vol]5.10 mg/dLHigh0.70-1.30The [facility] Physician GroupComment on above:Performed By: #### RENAL #### [place] [address] USACreatinine Clr Calc Xtwwuibe83.08NormalThe [facility] Physician GroupComment on above:Result Comment: PERFORMED BY: [place] [address] PATHOLOGIST SHUTTLER CAR CARLOS BIRMINGHAM M.D.Performed By: #### RENAL #### [place] [address] USAGFR/1.73 sq M.predicted MDRD (S/P/Bld) [Vol rate/Area] 11.897 mL/min/{1.73_m2}NormalThe [facility] Physician GroupComment on above: Performed By: #### RENAL #### [place] [address] USAGlucose [Mass/Vol]90 mg/qQOshvvq45-590Ryt [facility] Physician GroupComment on above:Result Comment: Random Glucose Reference Range is dependent on time and content of last meal. Glucose of more than 200 mg/dL in a nonstressed, ambulatory subject supports the diagnosis of Diabetes Mellitus. ADA recommended reference rangePerformed By: #### RENAL #### [place] [address] USAPhosphate [Mass/Vol]4.1 mg/dLNormal2.5-4.5The [facility] Physician GroupComment on above:Performed By: #### RENAL #### [place] [address] USAPotassium [Moles/Vol]4.1 mmol/LNormal3.5-5.1The [facility] Physician GroupComment on above:Performed By: #### RENAL #### [place] [address] USASodium [Moles/Vol]134 mmol/AUjv464-694Vve [facility] Physician GroupComment on above:Performed By: #### RENAL #### [place] [address] USAUrea nitrogen [Mass/Vol]34 mg/dLHigh7-25The [facility] Physician GroupComment on above:Performed By: #### RENAL #### [place] [address] USAGlucose Poct Glucometerson 95-14-1692Wannhkx9Xfy2: Cleaned MeterNoFormerly [facility], [facility] Physician [facility] GulfportComment on above:Result Comment: PERFORMED BY: [place] [address] PATHOLOGIST SHUTTLER CAR CARLOS BIRMINGHAM M.D.Performed By: #### HEPACUTE, HBCAB, HBSAB #### [facility] ,Glucose [Mass/Vol]189 mg/dLNoFormerly [facility], [facility] Physician GroupComment on above: Result Comment: Random Glucose Reference Range is dependent on time and content of last meal. Glucose of more than 200 mg/dL in a nonstressed, ambulatory subject supports the diagnosis of Diabetes Mellitus.Performed By: #### HEPACUTE, HBCAB, HBSAB #### [facility] ,Glucose [Mass/Vol]138 mg/dLTampa Shriners Hospital Physician GroupComment on above: Result Comment: Random Glucose Reference Range is dependent on time and content of last meal. Glucose of more than 200 mg/dL in a nonstressed, ambulatory subject supports the diagnosis of Diabetes Mellitus. PERFORMED BY: [place] [address] PATHOLOGIST SHUTTLER CAR CARLOS BIRMINGHAM M.D.Performed By: #### GLULS #### Point of Care testing ,Glucose [Mass/Vol]131 mg/dLTampa Shriners Hospital Physician GroupComment on above: Result Comment: Random Glucose Reference Range is dependent on time and content of last meal. Glucose of more than 200 mg/dL in a nonstressed, ambulatory subject supports the diagnosis of Diabetes Mellitus. PERFORMED BY: [place] [address] PATHOLOGIST SHUTTLER CAR CARLOS BIRMINGHAM M.D.Performed By: #### HEPACUTE, HBCAB, HBSAB #### [facility] ,Glucose [Mass/Vol]93 mg/dLTampa Shriners Hospital Physician GroupComment on above: Result Comment: Random Glucose Reference Range is dependent on time and content of last meal. Glucose of more than 200 mg/dL in a nonstressed, ambulatory subject supports the diagnosis of Diabetes Mellitus. PERFORMED BY: [place] [address] PATHOLOGIST SHUTTLER CAR CARLOS BIRMINGHAM M.D.Performed By: #### HEPACUTE, HBCAB, HBSAB #### [facility] ,Glucose Poct Glucometerson 66-55-8065Qkcnreb [Mass/Vol]273 mg/dLTampa Shriners Hospital Physician GroupComment on above:Result Comment: Random Glucose Reference Range is dependent on time and content of last meal. Glucose of more than 200 mg/dL in a nonstressed, ambulatory subject supports the diagnosis of Diabetes Mellitus. PERFORMED BY: [place] [address] PATHOLOGIST SHUTTLER CAR CARLOS BIRMINGHAM M.D.Performed By: #### HEPACUTE, HBCAB, HBSAB #### [facility] ,Glucose [Mass/Vol]147 mg/dLTampa Shriners Hospital Physician GroupComment on above: Result Comment: Random Glucose Reference Range is dependent on time and content of last meal. Glucose of more than 200 mg/dL in a nonstressed, ambulatory subject supports the diagnosis of Diabetes Mellitus. PERFORMED BY: [place] [address] PATHOLOGIST SHUTTLER CAR CARLOS BIRMINGHAM M.D.Performed By: #### HEPACUTE, HBCAB, HBSAB #### [facility] ,Iwupeqj3Ggz1: Cleaned MeterNoFormerly [facility], [facility] Physician GroupComment on above: Result Comment: PERFORMED BY: [place] [address] PATHOLOGIST SHUTTLER CAR CARLOS BIRMINGHAM M.D.Performed By: #### HEPACUTE, HBCAB, HBSAB #### [facility] ,Glucose [Mass/Vol]169 mg/dLTampa Shriners Hospital Physician GroupComment on above: Result Comment: Random Glucose Reference Range is dependent on time and content of last meal. Glucose of more than 200 mg/dL in a nonstressed, ambulatory subject supports the diagnosis of Diabetes Mellitus.Performed By: #### HEPACUTE, HBCAB, HBSAB #### [facility] ,Glucose [Mass/Vol]99 mg/dLNoFormerly [facility], [facility] Physician GroupComment on above: Result Comment: Random Glucose Reference Range is dependent on time and content of last meal. Glucose of more than 200 mg/dL in a nonstressed, ambulatory subject supports the diagnosis of Diabetes Mellitus. PERFORMED BY: [address] [place] [address] PATHOLOGIST SHUTTLER CAR CARLOS BIRMINGHAM M.D.Performed By: #### HEPACUTE, HBCAB, HBSAB #### [facility] ,Diff and CBCon 56-44-6275Gjjivgvgglpv Ql (Bld)SlightNormHCA Florida Suwannee Emergency Physician GroupComment on above:Performed By: #### HEPACUTE, HBCAB, HBSAB #### [facility] ,Band form neutrophils/100 WBC (Bld)4 %Normal0-5The [facility] Comment on above:Performed By: #### HEPACUTE, HBCAB, HBSAB #### [facility] ,Eosinophils/100 WBC (Bld)5 %High1-3The [facility] Physician GroupComment on above:Performed By: #### HEPACUTE, HBCAB, HBSAB #### [facility] ,Erythrocyte distribution width (RBC) [Ratio]14.2 %Iqswcb86.0-14.8The [facility] Physician GroupComment on above:Performed By: #### HEPACUTE, HBCAB, HBSAB #### [facility] ,Hematocrit (Bld) [Volume fraction]25.2 %Low38.8-50.0The [facility] Physician GroupComment on above:Performed By: #### HEPACUTE, HBCAB, HBSAB #### [facility] ,Hemoglobin (Bld) [Mass/Vol]8.3 g/dLLow13.0-17.0The [facility] Comment on above:Performed By: #### HEPACUTE, HBCAB, HBSAB #### [facility] ,Large PlateletsSErlanger Western [facility] Hospital Physician GroupComment on above:Result Comment: PERFORMED BY: [facility] [place] [address] PATHOLOGIST SHUTTLER CAR CARLOS BRIMINGHAM M.D.Performed By: #### HEPACUTE, HBCAB, HBSAB #### [facility] ,Lymphocytes/100 WBC (Bld)17 %Qmt68-32Psq [facility] Physician GroupComment on above:Performed By: #### HEPACUTE, HBCAB, HBSAB #### [facility] ,MCH (RBC) [Entitic mass]29.1 abCdvtiq86.5-35.2The [facility] Comment on above:Performed By: #### HEPACUTE, HBCAB, HBSAB #### [facility] ,MCV (RBC) [Entitic vol]88.7 eFPgghpz05.5-101The [facility] Comment on above:Performed By: #### HEPACUTE, HBCAB, HBSAB #### [facility] ,Mean Corpuscular HGB Conc32.8 g/iCQfvrlp75.5-35.6The [facility] Comment on above:Performed By: #### HEPACUTE, HBCAB, HBSAB #### [facility] ,MicrocytosisSErlanger [facility] Hospital Physician GroupComment on above:Performed By: #### HEPACUTE, HBCAB, HBSAB #### [facility] ,Monocytes/100 WBC (Bld)6 %Normal2-11The [facility] Physician GroupComment on above:Performed By: #### HEPACUTE, HBCAB, HBSAB #### [facility] ,Myelocytes1 %High0-0The [facility] Physician GroupComment on above:Performed By: #### HEPACUTE, HBCAB, HBSAB #### [facility] ,Platelet EstimateNormalNormAdventHealth Apopka Physician GroupComment on above:Performed By: #### HEPACUTE, HBCAB, HBSAB #### [facility] ,Platelet mean volume (Bld) [Entitic vol]6.3 fLLow6.6-10.1The [facility] Physician GroupComment on above:Performed By: #### HEPACUTE, HBCAB, HBSAB #### [facility] ,Platelets (Bld) [#/Vol]349 10*3/cOFuvlaa085-136Bkh [facility] Comment on above:Performed By: #### HEPACUTE, HBCAB, HBSAB #### [facility] ,PoikilocytosisSErlanger Western [facility] Hospital Physician GroupComment on above: Performed By: #### HEPACUTE, HBCAB, HBSAB #### [facility] ,PolychromasiaSErlanger Western Carolina Hospital Physician GroupComment on above: Performed By: #### HEPACUTE, HBCAB, HBSAB #### [facility] ,RBC (Bld) [#/Vol]2.84 10*6/uLLow3.90-5.60The [facility] Physician GroupComment on above:Performed By: #### HEPACUTE, HBCAB, HBSAB #### [facility] ,Segmented neutrophils/100 WBC (Bld)68 %Zwcjkt24-24Zbz [facility] Physician [facility] Comment on above:Performed By: #### HEPACUTE, HBCAB, HBSAB #### [facility] ,StomatocytesSErlanger Western [facility] Hospital Physician GroupComment on above:Performed By: #### HEPACUTE, HBCAB, HBSAB #### [facility] ,WBC (Bld) [#/Vol]9.3 10*3/uLNormal4.1-10.5The [facility] Physician GroupComment on above:Performed By: #### HEPACUTE, HBCAB, HBSAB #### [facility] ,White Blood Count9.3 [CFU]/mLNormal4.1-10.5The [facility] Physician [facility] GulfportComment on above:Performed By: #### HEPACUTE, HBCAB, HBSAB #### [facility] ,Glucose Poct Glucometerson 02-21-6505Icrfzmq [Mass/Vol]209 mg/dLNoFormerly [facility], [facility] Physician [facility] GulfportComment on above:Result Comment: Random Glucose Reference Range is dependent on time and content of last meal. Glucose of more than 200 mg/dL in a nonstressed, ambulatory subject supports the diagnosis of Diabetes Mellitus. PERFORMED BY: [place] [phone] PATHOLOGIST SHUTTLER CAR CARLOS BIRMINGHAM M.D.Performed By: #### RENAL, MG #### [place] [address] USAGlucose [Mass/Vol]172 mg/dLNoFormerly [facility], [facility] Physician [facility] GulfportComment on above:Result Comment: Random Glucose Reference Range is dependent on time and content of last meal. Glucose of more than 200 mg/dL in a nonstressed, ambulatory subject supports the diagnosis of Diabetes Mellitus. PERFORMED BY: [place] [phone] PATHOLOGIST SHUTTLER CAR CARLOS BIRMINGHAM M.D.Performed By: #### GLULS #### Point of Care testing ,Glucose [Mass/Vol]121 mg/dLNoFormerly [facility], [facility] Physician [facility] GulfportComment on above: Result Comment: Random Glucose Reference Range is dependent on time and content of last meal. Glucose of more than 200 mg/dL in a nonstressed, ambulatory subject supports the diagnosis of Diabetes Mellitus. PERFORMED BY: [place] [phone] PATHOLOGIST SHUTTLER CAR CARLOS BIRMINGHAM M.D.Performed By: #### HEPACUTE, HBCAB, HBSAB #### [facility] ,Glucose [Mass/Vol]86 mg/dLTampa Shriners Hospital Physician GroupComment on above: Result Comment: Random Glucose Reference Range is dependent on time and content of last meal. Glucose of more than 200 mg/dL in a nonstressed, ambulatory subject supports the diagnosis of Diabetes Mellitus. PERFORMED BY: [address] [place] [address] PATHOLOGIST SHUTTLER CAR CARLOS BIRMINGHAM M.D.Performed By: #### HEPACUTE, HBCAB, HBSAB #### [facility] ,Complete Blood Count Auto Diffon 57-50-7632Nnkxmxdtr (Bld) [#/Vol]0.2 10*3/uL Normal0.0-0.2The [facility] Physician GroupComment on above:Result Comment: PERFORMED BY: [address] [place] [address] PATHOLOGIST SHUTTLER CAR CARLOS BIRMINGHAM M.D.Performed By: #### HEPACUTE, HBCAB, HBSAB #### [facility] ,Basophils/100 WBC (Bld)1.3 %Normal.The [facility] Physician GroupComment on above:Performed By: #### HEPACUTE, HBCAB, HBSAB #### [facility] ,Eosinophils (Bld) [#/Vol]0.6 10*3/uLHigh0.0-0.45The [facility] Comment on above:Performed By: #### HEPACUTE, HBCAB, HBSAB #### [facility] ,Eosinophils/100 WBC (Bld)4.6 %Normal.The [facility] Physician GroupComment on above:Performed By: #### HEPACUTE, HBCAB, HBSAB #### [facility] ,Erythrocyte distribution width (RBC) [Ratio]14.0 %Omyvhv04.0-14.8The [facility] Physician GroupComment on above:Performed By: #### HEPACUTE, HBCAB, HBSAB #### [facility] ,Hematocrit (Bld) [Volume fraction]27.3 %Low38.8-50.0The [facility] Physician GroupComment on above:Performed By: #### HEPACUTE, HBCAB, HBSAB #### [facility] ,Hemoglobin (Bld) [Mass/Vol]8.9 g/dLLow13.0-17.0The [facility] Comment on above:Performed By: #### HEPACUTE, HBCAB, HBSAB #### [facility] ,Lymphocytes (Bld) [#/Vol]2.6 10*3/uLNormal1.00-4.8The [facility] Comment on above:Performed By: #### HEPACUTE, HBCAB, HBSAB #### [facility] ,Lymphocytes/100 WBC (Bld)20.4 %Normal.The [facility] Physician GroupComment on above:Performed By: #### HEPACUTE, HBCAB, HBSAB #### [facility] ,MCH (RBC) [Entitic mass]28.9 nmIlftzf35.5-35.2The [facility] Comment on above:Performed By: #### HEPACUTE, HBCAB, HBSAB #### [facility] ,MCV (RBC) [Entitic vol]88.7 dTUejabo14.5-101The [facility] Comment on above:Performed By: #### HEPACUTE, HBCAB, HBSAB #### [facility] ,Mean Corpuscular HGB Conc32.6 g/lQPtgzza20.5-35.6The [facility] Comment on above:Performed By: #### HEPACUTE, HBCAB, HBSAB #### [facility] ,Monocytes (Bld) [#/Vol]0.9 10*3/uLHigh0.0-0.8The [facility] Comment on above:Performed By: #### HEPACUTE, HBCAB, HBSAB #### [facility] ,Monocytes/100 WBC (Bld)7.1 %Normal.The [facility] Physician GroupComment on above:Performed By: #### HEPACUTE, HBCAB, HBSAB #### [facility] ,Neutrophils (Bld) [#/Vol]8.5 10*3/uLHigh1.8-7.7The [facility] Comment on above:Performed By: #### HEPACUTE, HBCAB, HBSAB #### [facility] ,Neutrophils/100 WBC (Bld)66.6 %Normal.The [facility] Physician GroupComment on above:Performed By: #### HEPACUTE, HBCAB, HBSAB #### [facility] ,NRBC%0.0 /100{WBC}Normal0-0.5The [facility] Physician GroupComment on above: Performed By: #### HEPACUTE, HBCAB, HBSAB #### [facility] ,Platelet mean volume (Bld) [Entitic vol]6.8 fLNormal6.6-10.1The [facility] Physician GroupComment on above:Performed By: #### HEPACUTE, HBCAB, HBSAB #### [facility] ,Platelets (Bld) [#/Vol]381 10*3/jWXqybpy799-636Qzp [facility] Comment on above:Performed By: #### HEPACUTE, HBCAB, HBSAB #### [facility] ,RBC (Bld) [#/Vol]3.08 10*6/uLLow3.90-5.60The [facility] Physician GroupComment on above:Performed By: #### HEPACUTE, HBCAB, HBSAB #### [facility] ,WBC (Bld) [#/Vol]12.7 10*3/uLHigh4.1-10.5The [facility] Physician GroupComment on above:Performed By: #### HEPACUTE, HBCAB, HBSAB #### [facility] ,White Blood Count12.7 [CFU]/mLHigh4.1-10.5The [facility] Physician GroupComment on above:Performed By: #### HEPACUTE, HBCAB, HBSAB #### [facility] ,Glucose Poct Glucometerson 96-23-9993Plsvpeb [Mass/Vol]155 mg/dLTampa Shriners Hospital Physician GroupComment on above:Result Comment: Random Glucose Reference Range is dependent on time and content of last meal. Glucose of more than 200 mg/dL in a nonstressed, ambulatory subject supports the diagnosis of Diabetes Mellitus. PERFORMED BY: [place] [address] PATHOLOGIST SHUTTLER CAR CARLOS BIRMINGHAM M.D.Performed By: #### GLULS #### Point of Care testing ,Glucose [Mass/Vol]81 mg/dLTampa Shriners Hospital Physician GroupComment on above: Result Comment: Random Glucose Reference Range is dependent on time and content of last meal. Glucose of more than 200 mg/dL in a nonstressed, ambulatory subject supports the diagnosis of Diabetes Mellitus. PERFORMED BY: [place] [address] PATHOLOGIST SHUTTLER CAR CARLOS BIRMINGHAM M.D.Performed By: #### GLULS #### Point of Care testing ,Gyrlklb5Rof8: Cleaned MeterNoFormerly [facility], [facility] Physician GroupComment on above: Result Comment: PERFORMED BY: [place] [address] PATHOLOGIST SHUTTLER CAR CARLOS BIRMINGHAM M.D.Performed By: #### RENAL #### [facility] [address] [place] [address] USAGlucose [Mass/Vol]120 mg/dLTampa Shriners Hospital Physician GroupComment on above:Result Comment: Random Glucose Reference Range is dependent on time and content of last meal. Glucose of more than 200 mg/dL in a nonstressed, ambulatory subject supports the diagnosis of Diabetes Mellitus.Performed By: #### RENAL #### [facility] [address] [place] [address] USAGlucose [Mass/Vol]111 mg/dLTampa [facility] Physician GroupComment on above:Result Comment: Random Glucose Reference Range is dependent on time and content of last meal. Glucose of more than 200 mg/dL in a nonstressed, ambulatory subject supports the diagnosis of Diabetes Mellitus. PERFORMED BY: [place] [address] PATHOLOGIST SHUTTLER CAR CARLOS BIRMINGHAM M.D.Performed By: #### RENAL #### [address] [address] USARenal Function Panelon [id number] [Mass/Vol]3.2 g/dLLow3.5-5.7The [facility] Physician GroupComment on above:Performed By: #### HEPACUTE, HBCAB, HBSAB #### [facility] ,Anion gap [Moles/Vol]13.1 mmol/LNormal6.0-15.0[facility] Comment on above:Performed By: #### HEPACUTE, HBCAB, HBSAB #### [facility] ,Calcium [Mass/Vol]10.0 mg/dLNormal8.6-10.3The [facility] Physician GroupComment on above:Performed By: #### HEPACUTE, HBCAB, HBSAB #### [facility] ,Chloride [Moles/Vol]97 mmol/TTog38-432Nth [facility] Physician [facility]portComment on above:Performed By: #### HEPACUTE, HBCAB, HBSAB #### [facility] ,CO2 [Moles/Vol]29.0 mmol/VRdqjxx80.0-31.0The [facility] Physician GroupComment on above:Performed By: #### HEPACUTE, HBCAB, HBSAB #### [facility] ,Creatinine [Mass/Vol]6.38 mg/dLHigh0.70-1.30The [facility] Physician [facility] Comment on above:Performed By: #### HEPACUTE, HBCAB, HBSAB #### [facility] ,Creatinine Clr Calc Pwblppds83.00NormalThe [facility] Physician GroupComment on above:Result Comment: PERFORMED BY: [address] [address] PATHOLOGIST SHUTTLER CAR CARLOS S VINNIE M.D.Performed By: #### HEPACUTE, HBCAB, HBSAB #### [facility] ,GFR/1.73 sq M.predicted MDRD (S/P/Bld) [Vol rate/Area]9.094 mL/min/{1.73_m2} NormalThe [facility] Physician GroupComment on above:Performed By: #### HEPACUTE, HBCAB, HBSAB #### [facility] ,Glucose [Mass/Vol]150 mg/gNYwhv96-345Rfu [facility] Physician GroupComment on above:Result Comment: Random Glucose Reference Range is dependent on time and content of last meal. Glucose of more than 200 mg/dL in a nonstressed, ambulatory subject supports the diagnosis of Diabetes Mellitus. ADA recommended reference rangePerformed By: #### HEPACUTE, HBCAB, HBSAB #### [facility] ,Phosphate [Mass/Vol]4.8 mg/dLHigh2.5-4.5The [facility] Physician GroupComment on above:Performed By: #### HEPACUTE, HBCAB, HBSAB #### [facility] ,Potassium [Moles/Vol]4.1 mmol/LNormal3.5-5.1The [facility] Comment on above:Performed By: #### HEPACUTE, HBCAB, HBSAB #### [facility] ,Sodium [Moles/Vol]135 mmol/UKhs235-424Alo [facility] Physician GroupComment on above:Performed By: #### HEPACUTE, HBCAB, HBSAB #### [facility] ,Urea nitrogen [Mass/Vol]47 mg/dLHigh7-25The [facility] Physician GroupComment on above:Performed By: #### HEPACUTE, HBCAB, HBSAB #### [facility] ,Glucose Poct Glucometerson 50-14-0785Ojbtocj [Mass/Vol]259 mg/dLNormalThe [facility] Physician GroupComment on above:Result Comment: Random Glucose Reference Range is dependent on time and content of last meal. Glucose of more than 200 mg/dL in a nonstressed, ambulatory subject supports the diagnosis of Diabetes Mellitus. PERFORMED BY: [place] [address] PATHOLOGIST SHUTTLER CAR CARLOS BIRMINGHAM M.D.Performed By: #### HEPACUTE, HBCAB, HBSAB #### [facility] ,Qjoappt6Plw5: Cleaned MeterTampa Shriners Hospital Physician GroupComment on above: Result Comment: PERFORMED BY: [place] [address] PATHOLOGIST SHUTTLER CAR CARLOS BIRMINGHAM M.D.Performed By: #### GLULS #### Point of Care testing ,Glucose [Mass/Vol]144 mg/dLTampa [facility]riners Hospital Physician GroupComment on above: Result Comment: Random Glucose Reference Range is dependent on time and content of last meal. Glucose of more than 200 mg/dL in a nonstressed, ambulatory subject supports the diagnosis of Diabetes Mellitus.Performed By: #### GLULS #### Point of Care testing ,Glucose [Mass/Vol]157 mg/dLTampa [facility]riners Hospital Physician GroupComment on above: Result Comment: Random Glucose Reference Range is dependent on time and content of last meal. Glucose of more than 200 mg/dL in a nonstressed, ambulatory subject supports the diagnosis of Diabetes Mellitus. PERFORMED BY: [place] [address] PATHOLOGIST SHUTTLER CAR CARLOS BIRMINGHAM M.D.Performed By: #### HEPACUTE, HBCAB, HBSAB #### [facility] ,Glucose [Mass/Vol]104 mg/dLTampa [facility] Hospital Physician GroupComment on above: Result Comment: Random Glucose Reference Range is dependent on time and content of last meal. Glucose of more than 200 mg/dL in a nonstressed, ambulatory subject supports the diagnosis of Diabetes Mellitus. PERFORMED BY: [place] [address] PATHOLOGIST SHUTTLER CAR CARLOS BIRMINGHAM M.D.Performed By: #### HEPACUTE, HBCAB, HBSAB #### [facility] ,Glucose Poct Glucometerson 27-96-1596Axovlss [Mass/Vol]184 mg/dLTampa Shriners Hospital Physician GroupComment on above:Result Comment: Random Glucose Reference Range is dependent on time and content of last meal. Glucose of more than 200 mg/dL in a nonstressed, ambulatory subject supports the diagnosis of Diabetes Mellitus. PERFORMED BY: [place] [address] PATHOLOGIST SHUTTLER CAR CARLOS BIRMINGHAM M.D.Performed By: #### HEPACUTE, HBCAB, HBSAB #### [facility] ,Joupkel2Adn2: Cleaned MeterTampa Shriners Hospital Physician GroupComment on above: Result Comment: PERFORMED BY: [place] [address] PATHOLOGIST SHUTTLER CAR CARLOS BIRMINGHAM M.D.Performed By: #### HEPACUTE, HBCAB, HBSAB #### [facility] ,Glucose [Mass/Vol]209 mg/dLTampa [facility] Hospital Physician GroupComment on above: Result Comment: Random Glucose Reference Range is dependent on time and content of last meal. Glucose of more than 200 mg/dL in a nonstressed, ambulatory subject supports the diagnosis of Diabetes Mellitus.Performed By: #### HEPACUTE, HBCAB, HBSAB #### [facility] ,Titssju7Usj6: Cleaned MeterTampa Shriners Hospital Physician GroupComment on above: Result Comment: PERFORMED BY: [place] [address] PATHOLOGIST SHUTTLER CAR CARLOS BIRMINGHAM M.D.Performed By: #### GLULS #### Point of Care testing ,Glucose [Mass/Vol]212 mg/dLTampa Shriners Hospital Physician GroupComment on above: Result Comment: Random Glucose Reference Range is dependent on time and content of last meal. Glucose of more than 200 mg/dL in a nonstressed, ambulatory subject supports the diagnosis of Diabetes Mellitus.Performed By: #### GLULS #### Point of Care testing ,Glucose [Mass/Vol]170 mg/dLNoFormerly [facility], [facility] Physician GroupComment on above: Result Comment: Random Glucose Reference Range is dependent on time and content of last meal. Glucose of more than 200 mg/dL in a nonstressed, ambulatory subject supports the diagnosis of Diabetes Mellitus. PERFORMED BY: [place] [address] PATHOLOGIST SHUTTLER CAR CARLOS BIRMINGHAM M.D.Performed By: #### HEPACUTE, HBCAB, HBSAB #### [facility] ,Glucose Poct Glucometerson 61-38-6791Kjtdojb [Mass/Vol]302 mg/dLNoFormerly [facility], [facility] Physician GroupComment on above:Result Comment: Random Glucose Reference Range is dependent on time and content of last meal. Glucose of more than 200 mg/dL in a nonstressed, ambulatory subject supports the diagnosis of Diabetes Mellitus. PERFORMED BY: [place] [address] PATHOLOGIST SHUTTLER CAR CARLOS BIRMINGHAM M.D.Performed By: #### HEPACUTE, HBCAB, HBSAB #### [facility] ,Glucose [Mass/Vol]146 mg/dLNoFormerly [facility], [facility] Physician GroupComment on above: Result Comment: Random Glucose Reference Range is dependent on time and content of last meal. Glucose of more than 200 mg/dL in a nonstressed, ambulatory subject supports the diagnosis of Diabetes Mellitus. PERFORMED BY: [place] [address] PATHOLOGIST SHUTTLER CAR CARLOS BIRMINGHAM M.D.Performed By: #### GLULS #### Point of Care testing ,Glucose [Mass/Vol]250 mg/dLNoFormerly [facility], [facility] Physician GroupComment on above: Result Comment: Random Glucose Reference Range is dependent on time and content of last meal. Glucose of more than 200 mg/dL in a nonstressed, ambulatory subject supports the diagnosis of Diabetes Mellitus. PERFORMED BY: [place] [id number] PATHOLOGIST SHUTTLER CAR CARLOS BIRMINGHAM M.D.Performed By: #### GLULS #### Point of Care testing ,Glucose [Mass/Vol]126 mg/dLNormalThe [facility] Physician GroupComment on above: Result Comment: Random Glucose Reference Range is dependent on time and content of last meal. Glucose of more than 200 mg/dL in a nonstressed, ambulatory subject supports the diagnosis of Diabetes Mellitus. PERFORMED BY: [place] [address] PATHOLOGIST SHUTTLER CAR CARLOS BIRMINGHAM M.D.Performed By: #### GLULS #### Point of Care testing ,Renal Function Panelon [id number] [Mass/Vol]3.4 g/dLLow3.5-5.7The [facility] Physician GroupComment on above:Performed By: #### RENAL, MG #### [place] [address] USAAnion gap [Moles/Vol]15.3 mmol/LHigh6.0-15.0The [facility] Physician GroupComment on above:Performed By: #### RENAL, MG #### [place] [address] USACalcium [Mass/Vol]9.4 mg/dLNormal8.6-10.3The [facility] Physician GroupComment on above:Performed By: #### RENAL, MG #### [place] [address] USAChloride [Moles/Vol]95 mmol/TLbb99-053Clc [facility] Physician GroupComment on above:Performed By: #### RENAL, MG #### [place] [address] USACO2 [Moles/Vol]27.6 mmol/MBzdxod71.0-31.0The [facility] Physician GroupComment on above:Performed By: #### RENAL, MG #### [place] [address] USACreatinine [Mass/Vol]5.49 mg/dLHigh0.70-1.30The [facility] Physician GroupComment on above:Performed By: #### RENAL, MG #### [place] [address] USACreatinine Clr Calc Knateswj61.47NormalThe [facility] Physician GroupComment on above:Result Comment: PERFORMED BY: [place] [address] PATHOLOGIST SHUTTLER CAR CARLOS BIRMINGHAM M.D.Performed By: #### RENAL, MG #### [place] [address] USAGFR/1.73 sq M.predicted MDRD (S/P/Bld) [Vol rate/Area] 10.890 mL/min/{1.73_m2}NormalThe [facility] Physician GroupComment on above: Performed By: #### RENAL, MG #### [place] [address] USAGlucose [Mass/Vol]205 mg/qFQudr27-288Vyc [facility] Physician GroupComment on above:Result Comment: Random Glucose Reference Range is dependent on time and content of last meal. Glucose of more than 200 mg/dL in a nonstressed, ambulatory subject supports the diagnosis of Diabetes Mellitus. ADA recommended reference rangePerformed By: #### RENAL, MG #### [place] [address] USAPhosphate [Mass/Vol]4.8 mg/dLHigh2.5-4.5The [facility] Physician GroupComment on above:Performed By: #### RENAL, MG #### [place] [address] USAPotassium [Moles/Vol]3.9 mmol/LNormal3.5-5.1The [facility] Physician GroupComment on above:Performed By: #### RENAL, MG #### [place] [address] USASodium [Moles/Vol]134 mmol/DTbm639-213Bax [facility] Physician GroupComment on above:Performed By: #### RENAL, MG #### [place] [address] USAUrea nitrogen [Mass/Vol]42 mg/dLHigh7-25The [facility] Physician GroupComment on above:Performed By: #### RENAL, MG #### [facility] [address] [id number] USAComplete Blood Count Auto Diffon 75-22-9966Llsgievik (Bld) [#/Vol]0.1 10*3/uLNormal0.0-0.2The [facility] Physician GroupComment on above: Result Comment: PERFORMED BY: [facility] [address] [id number] PATHOLOGIST SHUTTLER CAR CARLOS BIRMINGHAM M.D.Performed By: #### HEPACUTE, HBCAB, HBSAB #### [facility] ,Basophils/100 WBC (Bld)0.8 %Normal.The [facility] Physician GroupComment on above:Performed By: #### HEPACUTE, HBCAB, HBSAB #### [facility] ,Eosinophils (Bld) [#/Vol]0.4 10*3/uLNormal0.0-0.45The [facility] Physician [facility] Comment on above:Performed By: #### HEPACUTE, HBCAB, HBSAB #### [facility] ,Eosinophils/100 WBC (Bld)4.5 %Normal.The [facility] Physician GroupComment on above:Performed By: #### HEPACUTE, HBCAB, HBSAB #### [facility] ,Erythrocyte distribution width (RBC) [Ratio]14.2 %Dzsbbg09.0-14.8The [facility] Physician GroupComment on above:Performed By: #### HEPACUTE, HBCAB, HBSAB #### [facility] ,Hematocrit (Bld) [Volume fraction]28.1 %Low38.8-50.0The [facility] Physician GroupComment on above:Performed By: #### HEPACUTE, HBCAB, HBSAB #### [facility] ,Hemoglobin (Bld) [Mass/Vol]9.1 g/dLLow13.0-17.0The [facility] Physician [facility] Comment on above:Performed By: #### HEPACUTE, HBCAB, HBSAB #### [facility] ,Lymphocytes (Bld) [#/Vol]1.8 10*3/uLNormal1.00-4.8The [facility] Comment on above:Performed By: #### HEPACUTE, HBCAB, HBSAB #### [facility] ,Lymphocytes/100 WBC (Bld)19.4 %Normal.The [facility] Physician GroupComment on above:Performed By: #### HEPACUTE, HBCAB, HBSAB #### [facility] ,MCH (RBC) [Entitic mass]28.6 frDhavgk98.5-35.2The [facility] Comment on above:Performed By: #### HEPACUTE, HBCAB, HBSAB #### [facility] ,MCV (RBC) [Entitic vol]88.5 vODubcfi02.5-101The [facility] Comment on above:Performed By: #### HEPACUTE, HBCAB, HBSAB #### [facility] ,Mean Corpuscular HGB Conc32.3 g/dLLow32.5-35.6The [facility] Comment on above:Performed By: #### HEPACUTE, HBCAB, HBSAB #### [facility] ,Monocytes (Bld) [#/Vol]1.4 10*3/uLHigh0.0-0.8The [facility] Comment on above:Performed By: #### HEPACUTE, HBCAB, HBSAB #### [facility] ,Monocytes/100 WBC (Bld)15.2 %Normal.The [facility] Physician GroupComment on above:Performed By: #### HEPACUTE, HBCAB, HBSAB #### [facility] ,Neutrophils (Bld) [#/Vol]5.5 10*3/uLNormal1.8-7.7The [facility] Comment on above:Performed By: #### HEPACUTE, HBCAB, HBSAB #### [facility] ,Neutrophils/100 WBC (Bld)60.1 %Normal.The [facility] Physician GroupComment on above:Performed By: #### HEPACUTE, HBCAB, HBSAB #### [facility] ,NRBC%0.1 /100{WBC}Normal0-0.5The [facility] Physician GroupComment on above: Performed By: #### HEPACUTE, HBCAB, HBSAB #### [facility] ,Platelet mean volume (Bld) [Entitic vol]6.4 fLLow6.6-10.1The [facility] Physician GroupComment on above:Performed By: #### HEPACUTE, HBCAB, HBSAB #### [facility] ,Platelets (Bld) [#/Vol]246 10*3/jFPcwbrp446-766Gym [facility] Comment on above:Performed By: #### HEPACUTE, HBCAB, HBSAB #### [facility] ,RBC (Bld) [#/Vol]3.18 10*6/uLLow3.90-5.60The [facility] Physician GroupComment on above:Performed By: #### HEPACUTE, HBCAB, HBSAB #### [facility] ,WBC (Bld) [#/Vol]9.2 10*3/uLNormal4.1-10.5The [facility] Physician GroupComment on above:Performed By: #### HEPACUTE, HBCAB, HBSAB #### [facility] ,White Blood Count9.2 [CFU]/mLNormal4.1-10.5The [facility] Physician GroupComment on above:Performed By: #### HEPACUTE, HBCAB, HBSAB #### [facility] ,Comprehensive Metabolic Panelon 50-82-3464Lppwoah [Mass/Vol]3.1 g/dLLow3.5-5.7 The [facility] Physician GroupComment on above:Performed By: #### HEPACUTE, HBCAB, HBSAB #### [facility] ,Albumin/Globulin [Mass ratio]1.0 {ratio}NormalThe [facility] Comment on above:Performed By: #### HEPACUTE, HBCAB, HBSAB #### [facility] ,ALP [Catalytic activity/Vol]59 U/FNotfbn05-952Amd [facility] Comment on above:Performed By: #### HEPACUTE, HBCAB, HBSAB #### [facility] ,ALT [Catalytic activity/Vol]3 U/LLow7-52The [facility] Physician GroupComment on above:Performed By: #### HEPACUTE, HBCAB, HBSAB #### [facility] ,Anion gap [Moles/Vol]12.1 mmol/LNormal6.0-15.0The [facility] Comment on above:Performed By: #### HEPACUTE, HBCAB, HBSAB #### [facility] ,AST [Catalytic activity/Vol]21 U/OIpsgmf18-25Lze [facility] Comment on above:Performed By: #### HEPACUTE, HBCAB, HBSAB #### [facility] ,Bilirubin [Mass/Vol]0.7 mg/dLNormal0.3-1.0The [facility] Physician GroupComment on above:Performed By: #### HEPACUTE, HBCAB, HBSAB #### [facility] ,Calcium [Mass/Vol]8.9 mg/dLNormal8.6-10.3The [facility] Physician GroupComment on above:Performed By: #### HEPACUTE, HBCAB, HBSAB #### [facility] ,Chloride [Moles/Vol]99 mmol/FSlmstu29-146Nkw [facility] Physician GroupComment on above:Performed By: #### HEPACUTE, HBCAB, HBSAB #### [facility] ,CO2 [Moles/Vol]27.7 mmol/MQbkhxg02.0-31.0The [facility] Physician GroupComment on above:Performed By: #### HEPACUTE, HBCAB, HBSAB #### [facility] ,Creatinine [Mass/Vol]4.23 mg/dLHigh0.70-1.30The [facility]ician [facility] Comment on above:Performed By: #### HEPACUTE, HBCAB, HBSAB #### [facility] ,Creatinine Clr Calc Gqxrtlbr76.76NoFormerly [facility], [facility] Physician GroupComment on above:Performed By: #### HEPACUTE, HBCAB, HBSAB #### [facility] ,GFR/1.73 sq M.predicted MDRD (S/P/Bld) [Vol rate/Area]14.891 mL/min/{1.73_m2} NormalThe [facility] Physician GroupComment on above:Performed By: #### HEPACUTE, HBCAB, HBSAB #### [facility] ,Globulin (S) [Mass/Vol]3.1 g/dLNoFormerly [facility], [facility] Physician GroupComment on above:Performed By: #### HEPACUTE, HBCAB, HBSAB #### [facility] ,Glucose [Mass/Vol]143 mg/uSPklm67-492Wzq [facility] Physician GroupComment on above:Result Comment: Random Glucose Reference Range is dependent on time and content of last meal. Glucose of more than 200 mg/dL in a nonstressed, ambulatory subject supports the diagnosis of Diabetes Mellitus. ADA recommended reference rangePerformed By: #### HEPACUTE, HBCAB, HBSAB #### [facility] ,Potassium [Moles/Vol]3.8 mmol/LNormal3.5-5.1The [facility] Comment on above:Performed By: #### HEPACUTE, HBCAB, HBSAB #### [facility] ,Protein [Mass/Vol]6.2 g/dLLow6.4-8.9The [facility] Physician GroupComment on above:Performed By: #### HEPACUTE, HBCAB, HBSAB #### [facility] ,Sodium [Moles/Vol]135 mmol/JNxm194-465Lzo [facility] Physician GroupComment on above:Performed By: #### HEPACUTE, HBCAB, HBSAB #### [facility] ,Urea nitrogen [Mass/Vol]33 mg/dLPreston Memorial HospitalBear Lake Memorial Hospital Physician GroupComment on above:Performed By: #### HEPACUTE, HBCAB, HBSAB #### [facility] ,Glucose Poct Glucometerson 51-29-1588Uzfehdb [Mass/Vol]272 mg/dLNoFormerly [facility], [facility] Physician GroupComment on above:Result Comment: Random Glucose Reference Range is dependent on time and content of last meal. Glucose of more than 200 mg/dL in a nonstressed, ambulatory subject supports the diagnosis of Diabetes Mellitus. PERFORMED BY: [place] [address] PATHOLOGIST SHUTTLER CAR CARLOS BIRMINGHAM M.D.Performed By: #### GLULS #### Point of Care testing ,Glucose [Mass/Vol]262 mg/dLTampa [facility]riners Hospital Physician [facility] GulfportComment on above: Result Comment: Random Glucose Reference Range is dependent on time and content of last meal. Glucose of more than 200 mg/dL in a nonstressed, ambulatory subject supports the diagnosis of Diabetes Mellitus. PERFORMED BY: [place] [address] PATHOLOGIST SHUTTLER CAR CARLOS BIRMINGHAM M.D.Performed By: #### RENAL, MG #### [place] [address] USAGlucose [Mass/Vol]195 mg/dLTampa [facility]rin[facility] Hospital Physician GroupComment on above:Result Comment: Random Glucose Reference Range is dependent on time and content of last meal. Glucose of more than 200 mg/dL in a nonstressed, ambulatory subject supports the diagnosis of Diabetes Mellitus. PERFORMED BY: [place] [address] PATHOLOGIST SHUTTLER CAR CARLOS BIRMINGHAM M.D.Performed By: #### RENAL, MG #### [place] [address] USAGlucose [Mass/Vol]170 mg/dLNoFormerly [facility], [facility] Physician GroupComment on above:Result Comment: Random Glucose Reference Range is dependent on time and content of last meal. Glucose of more than 200 mg/dL in a nonstressed, ambulatory subject supports the diagnosis of Diabetes Mellitus. PERFORMED BY: [address] [address] [place] [address] PATHOLOGIST SHUTTLER CAR CARLOS BIRMINGHAM M.D.Performed By: #### GLULS #### Point of Care testing ,Prealbuminon 37-33-5649Plfagnidlu [Mass/Vol]16.6 mg/dLLow17.0-34.0The [facility] Physician GroupComment on above:Result Comment: PERFORMED BY: [facility] [address] [place] [address] PATHOLOGIST SHUTTLER CAR CARLOS BIRMINGHAM M.D.Performed By: #### HEPACUTE, HBCAB, HBSAB #### [facility] ,Comprehensive Metabolic Panelon 40-69-2675Apvhhkh [Mass/Vol]3.1 g/dLLow3.5-5.7 The [facility] Physician GroupComment on above:Performed By: #### HEPACUTE, HBCAB, HBSAB #### [facility] ,Albumin/Globulin [Mass ratio]0.9 {ratio}NormalThe [facility] Comment on above:Performed By: #### HEPACUTE, HBCAB, HBSAB #### [facility] ,ALP [Catalytic activity/Vol]68 U/CGpxekq34-622Tdm [facility] Comment on above:Performed By: #### HEPACUTE, HBCAB, HBSAB #### [facility] ,ALT [Catalytic activity/Vol]U/LLow7-52The [facility] Physician GroupComment on above:Performed By: #### HEPACUTE, HBCAB, HBSAB #### [facility] ,Anion gap [Moles/Vol]15.4 mmol/LHigh6.0-15.0The [facility] Comment on above:Performed By: #### HEPACUTE, HBCAB, HBSAB #### [facility] ,AST [Catalytic activity/Vol]22 U/YVfqrou75-14Yql [facility] Comment on above:Performed By: #### HEPACUTE, HBCAB, HBSAB #### [facility] ,Bilirubin [Mass/Vol]0.5 mg/dLNormal0.3-1.0[facility] Physician GroupComment on above:Performed By: #### HEPACUTE, HBCAB, HBSAB #### [facility] ,Calcium [Mass/Vol]8.9 mg/dLNormal8.6-10.3The [facility] Physician GroupComment on above:Performed By: #### HEPACUTE, HBCAB, HBSAB #### [facility] ,Chloride [Moles/Vol]98 mmol/SNqlski80-978Azw [facility] Physician GroupComment on above:Performed By: #### HEPACUTE, HBCAB, HBSAB #### [facility] ,CO2 [Moles/Vol]25.5 mmol/ZRalznw39.0-31.0The [facility] Physician GroupComment on above:Performed By: #### HEPACUTE, HBCAB, HBSAB #### [facility] ,Creatinine [Mass/Vol]6.08 mg/dLHigh0.70-1.30The [facility]ician [facility] Comment on above:Performed By: #### HEPACUTE, HBCAB, HBSAB #### [facility] ,Creatinine Clr Calc Assjdxst91.59NoFormerly [facility], [facility] Physician GroupComment on above:Performed By: #### HEPACUTE, HBCAB, HBSAB #### [facility] ,GFR/1.73 sq M.predicted MDRD (S/P/Bld) [Vol rate/Area]9.635 mL/min/{1.73_m2} NormalAdventhealth Sebring Physician GroupComment on above:Performed By: #### HEPACUTE, HBCAB, HBSAB #### [facility] ,Globulin (S) [Mass/Vol]3.5 g/dLNoFormerly [facility], [facility] Physician GroupComment on above:Performed By: #### HEPACUTE, HBCAB, HBSAB #### [facility] ,Glucose [Mass/Vol]108 mg/aUVuye09-046Jkl [facility] Physician GroupComment on above:Result Comment: Random Glucose Reference Range is dependent on time and content of last meal. Glucose of more than 200 mg/dL in a nonstressed, ambulatory subject supports the diagnosis of Diabetes Mellitus. ADA recommended reference rangePerformed By: #### HEPACUTE, HBCAB, HBSAB #### [facility] ,Potassium [Moles/Vol]3.9 mmol/LNormal3.5-5.1The [facility]ician [facility] Comment on above:Performed By: #### HEPACUTE, HBCAB, HBSAB #### [facility] ,Protein [Mass/Vol]6.6 g/dLNormal6.4-8.9The [facility] Physician GroupComment on above:Performed By: #### HEPACUTE, HBCAB, HBSAB #### [facility] ,Sodium [Moles/Vol]135 mmol/AXep113-142Seo [facility] Physician GroupComment on above:Performed By: #### HEPACUTE, HBCAB, HBSAB #### [facility] ,Urea nitrogen [Mass/Vol]54 mg/dLHigh7-25The [facility] Physician GroupComment on above:Performed By: #### HEPACUTE, HBCAB, HBSAB #### [facility] ,Diff and CBCon 17-37-2307Dgnxaxflizyo Ql (Bld)ModerateNormalThe [facility] Physician GroupComment on above:Performed By: #### HEPACUTE, HBCAB, HBSAB #### [facility] ,Band form neutrophils/100 WBC (Bld)1 %Normal0-5The [facility] Comment on above:Performed By: #### HEPACUTE, HBCAB, HBSAB #### [facility] ,Eosinophils/100 WBC (Bld)8 %High1-3The [facility] Physician GroupComment on above:Performed By: #### HEPACUTE, HBCAB, HBSAB #### [facility] ,Erythrocyte distribution width (RBC) [Ratio]14.1 %Wzyvkv16.0-14.8The [facility] Physician GroupComment on above:Performed By: #### HEPACUTE, HBCAB, HBSAB #### [facility] ,Hematocrit (Bld) [Volume fraction]29.7 %Low38.8-50.0The [facility] Physician GroupComment on above:Performed By: #### HEPACUTE, HBCAB, HBSAB #### [facility] ,Hemoglobin (Bld) [Mass/Vol]9.9 g/dLLow13.0-17.0The [facility] Comment on above:Performed By: #### HEPACUTE, HBCAB, HBSAB #### [facility] ,HypochromasiaSlightNormalThe [facility] Physician GroupComment on above: Performed By: #### HEPACUTE, HBCAB, HBSAB #### [facility] ,Lymphocytes/100 WBC (Bld)10 %Pqk73-17Vcz [facility] Physician GroupComment on above:Performed By: #### HEPACUTE, HBCAB, HBSAB #### [facility] ,MCH (RBC) [Entitic mass]29.1 iwBazuih39.5-35.2The [facility] Comment on above:Performed By: #### HEPACUTE, HBCAB, HBSAB #### [facility] ,MCV (RBC) [Entitic vol]87.6 uTOtpbzq12.5-101The [facility] Comment on above:Performed By: #### HEPACUTE, HBCAB, HBSAB #### [facility] ,Mean Corpuscular HGB Conc33.3 g/iXMsnwrw41.5-35.6The [facility] Comment on above:Performed By: #### HEPACUTE, HBCAB, HBSAB #### [facility] ,Metamyelocytes3 %High0-0The [facility] Physician GroupComment on above:Performed By: #### HEPACUTE, HBCAB, HBSAB #### [facility] ,MicrocytosisSErlanger [facility] Physician GroupComment on above:Performed By: #### HEPACUTE, HBCAB, HBSAB #### [facility] ,Monocytes/100 WBC (Bld)7 %Normal2-11The [facility] Physician GroupComment on above:Performed By: #### HEPACUTE, HBCAB, HBSAB #### [facility] ,Platelet EstimateNormalNormalTampa [facility]riners Hospital Physician GroupComment on above:Performed By: #### HEPACUTE, HBCAB, HBSAB #### [facility] ,Platelet mean volume (Bld) [Entitic vol]6.7 fLNormal6.6-10.1The [facility] Physician GroupComment on above:Performed By: #### HEPACUTE, HBCAB, HBSAB #### [facility] ,Platelet MorphologyNormalNormalTampa Shriners Hospital Physician GroupComment on above:Result Comment: PERFORMED BY: [address] [place] [address] PATHOLOGIST SHUTTLER CAR CARLOS BIRMINGHAM M.D.Performed By: #### HEPACUTE, HBCAB, HBSAB #### [facility] ,Platelets (Bld) [#/Vol]237 10*3/yYBocjdv806-961Ayq [facility] Comment on above:Performed By: #### HEPACUTE, HBCAB, HBSAB #### [facility] ,PoikilocytosisSErlanger [facility] Physician GroupComment on above: Performed By: #### HEPACUTE, HBCAB, HBSAB #### [facility] ,PolychromasiaSErlanger [facility] Hospital Physician GroupComment on above: Performed By: #### HEPACUTE, HBCAB, HBSAB #### [facility] ,RBC (Bld) [#/Vol]3.39 10*6/uLLow3.90-5.60The [facility] Physician [facility]portComment on above:Performed By: #### HEPACUTE, HBCAB, HBSAB #### [facility] ,Segmented neutrophils/100 WBC (Bld)72 %Ohso07-08VpjAdventhealth [facility]bring Physician [facility] Comment on above:Performed By: #### HEPACUTE, HBCAB, HBSAB #### [facility] ,WBC (Bld) [#/Vol]10.1 10*3/uLNormal4.1-10.5The [facility]ician [facility]portComment on above:Performed By: #### HEPACUTE, HBCAB, HBSAB #### [facility] ,White Blood Count10.1 [CFU]/mLNormal4.1-10.5The [facility] Physician [facility] Comment on above:Performed By: #### HEPACUTE, HBCAB, HBSAB #### [facility] ,Glucose Poct Glucometerson 26-53-4366Yannjbh [Mass/Vol]187 mg/dLNoFormerly [facility], [facility] Physician [facility] GulfportComment on above:Result Comment: Random Glucose Reference Range is dependent on time and content of last meal. Glucose of more than 200 mg/dL in a nonstressed, ambulatory subject supports the diagnosis of Diabetes Mellitus. PERFORMED BY: [place] [address] PATHOLOGIST SHUTTLER CAR CARLOS BIRMINGHAM M.D.Performed By: #### GLULS #### Point of Care testing ,Glucose [Mass/Vol]269 mg/dLTampa Shriners Hospital Physician [facility] GulfportComment on above: Result Comment: Random Glucose Reference Range is dependent on time and content of last meal. Glucose of more than 200 mg/dL in a nonstressed, ambulatory subject supports the diagnosis of Diabetes Mellitus. PERFORMED BY: [place] [address] PATHOLOGIST SHUTTLER CAR CARLOS BIRMINGHAM M.D.Performed By: #### RENAL, MG #### [place] [address] RWVGvgirtf8Gqc7: Cleaned MeterNoFormerly [facility], [facility] Physician GroupComment on above:Result Comment: PERFORMED BY: [address] [place] [address] PATHOLOGIST SHUTTLER CAR CARLOS BIRMINGHAM M.D.Performed By: #### GLULS #### Point of Care testing ,Glucose [Mass/Vol]109 mg/dLTampa Shriners Hospital Physician GroupComment on above: Result Comment: Random Glucose Reference Range is dependent on time and content of last meal. Glucose of more than 200 mg/dL in a nonstressed, ambulatory subject supports the diagnosis of Diabetes Mellitus.Performed By: #### GLULS #### Point of Care testing ,Glucose [Mass/Vol]109 mg/dLTampa Shriners Hospital Physician GroupComment on above: Result Comment: Random Glucose Reference Range is dependent on time and content of last meal. Glucose of more than 200 mg/dL in a nonstressed, ambulatory subject supports the diagnosis of Diabetes Mellitus. PERFORMED BY: [place] [address] PATHOLOGIST SHUTTLER CAR CARLOS BIRMINGHAM M.D.Performed By: #### GLULS #### Point of Care testing ,Magnesiumon 90-35-8362Gzojzgwtw [Mass/Vol]2.6 mg/dLNormal1.9-2.7The [facility] Physician GroupComment on above:Result Comment: PERFORMED BY: [address] [place] [address] PATHOLOGIST SHUTTLER CAR CARLOS BIRMINGHAM M.D.Performed By: #### HEPACUTE, HBCAB, HBSAB #### [facility] ,A1C with Estimated Average Gluon 44-77-9469Vbvatqq [Mass/Vol]255 mg/dLTampa Shriners Hospital Physician GroupComment on above:Result Comment: PERFORMED BY: [address] [place] [address] PATHOLOGIST SHUTTLER CAR CARLOS BIRMINGHAM M.D.Performed By: #### HEPACUTE, HBCAB, HBSAB #### [facility] ,HbA1c (Bld) [Mass fraction]10.5 %High4.3-5.6The [facility] Comment on above:Result Comment: Increased risk for diabetes: 5.7 - 6.4 diabetes: >6.4 glycemic control for adults with diabetes: <7.0Performed By: #### HEPACUTE, HBCAB, HBSAB #### [facility] ,Comprehensive Metabolic Panelon 78-55-2857Ymmokxy [Mass/Vol]3.1 g/dLLow3.5-5.7 The [facility] Physician GroupComment on above:Performed By: #### HEPACUTE, HBCAB, HBSAB #### [facility] ,Albumin/Globulin [Mass ratio]0.9 {ratio}NormalThe [facility] Comment on above:Performed By: #### HEPACUTE, HBCAB, HBSAB #### [facility] ,ALP [Catalytic activity/Vol]69 U/QQxaoua14-624Iup [facility] Comment on above:Performed By: #### HEPACUTE, HBCAB, HBSAB #### [facility] ,ALT [Catalytic activity/Vol]3 U/LLow7-52The [facility] Physician GroupComment on above:Performed By: #### HEPACUTE, HBCAB, HBSAB #### [facility] ,Anion gap [Moles/Vol]12.2 mmol/LNormal6.0-15.0The [facility] Comment on above:Performed By: #### HEPACUTE, HBCAB, HBSAB #### [facility] ,AST [Catalytic activity/Vol]21 U/OKoyrvi06-99Trg [facility] Comment on above:Performed By: #### HEPACUTE, HBCAB, HBSAB #### [facility] ,Bilirubin [Mass/Vol]0.6 mg/dLNormal0.3-1.0The [facility] Physician GroupComment on above:Performed By: #### HEPACUTE, HBCAB, HBSAB #### [facility] ,Calcium [Mass/Vol]8.9 mg/dLNormal8.6-10.3The [facility] Physician GroupComment on above:Performed By: #### HEPACUTE, HBCAB, HBSAB #### [facility] ,Chloride [Moles/Vol]95 mmol/YSus31-432Ahc [facility] Physician GroupComment on above:Performed By: #### HEPACUTE, HBCAB, HBSAB #### [facility] ,CO2 [Moles/Vol]30.5 mmol/OPzszpe42.0-31.0The [facility] Physician GroupComment on above:Performed By: #### HEPACUTE, HBCAB, HBSAB #### [facility] ,Creatinine [Mass/Vol]5.57 mg/dLHigh0.70-1.30[facility] Comment on above:Performed By: #### HEPACUTE, HBCAB, HBSAB #### [facility] ,Creatinine Clr Calc Erfkvbru04.11NoFormerly [facility], [facility] Physician GroupComment on above:Performed By: #### HEPACUTE, HBCAB, HBSAB #### [facility] ,GFR/1.73 sq M.predicted MDRD (S/P/Bld) [Vol rate/Area]10.703 mL/min/{1.73_m2} NormalThe [facility] Physician GroupComment on above:Performed By: #### HEPACUTE, HBCAB, HBSAB #### [facility] ,Globulin (S) [Mass/Vol]3.5 g/dLTampa Shriners Hospital Physician [facility]portComment on above:Performed By: #### HEPACUTE, HBCAB, HBSAB #### [facility] ,Glucose [Mass/Vol]175 mg/eLCvdp23-678Afx [facility] Physician GroupComment on above:Result Comment: Random Glucose Reference Range is dependent on time and content of last meal. Glucose of more than 200 mg/dL in a nonstressed, ambulatory subject supports the diagnosis of Diabetes Mellitus. ADA recommended reference rangePerformed By: #### HEPACUTE, HBCAB, HBSAB #### [facility] ,Potassium [Moles/Vol]3.7 mmol/LNormal3.5-5.1The [facility] Comment on above:Performed By: #### HEPACUTE, HBCAB, HBSAB #### [facility] ,Protein [Mass/Vol]6.6 g/dLNormal6.4-8.9The [facility] Physician GroupComment on above:Performed By: #### HEPACUTE, HBCAB, HBSAB #### [facility] ,Sodium [Moles/Vol]134 mmol/HYpz801-108Cur [facility] Physician GroupComment on above:Performed By: #### HEPACUTE, HBCAB, HBSAB #### [facility] ,Urea nitrogen [Mass/Vol]46 mg/dLHigh7-25The [facility] Physician GroupComment on above:Performed By: #### HEPACUTE, HBCAB, HBSAB #### [facility] ,Diff and CBCon 24-54-2151Tmsolgbhqozs Ql (Bld)SlightNormalThe [facility] Physician GroupComment on above:Performed By: #### HEPACUTE, HBCAB, HBSAB #### [facility] ,Eosinophils/100 WBC (Bld)7 %High1-3The [facility] Physician GroupComment on above:Performed By: #### HEPACUTE, HBCAB, HBSAB #### [facility] ,Erythrocyte distribution width (RBC) [Ratio]14.7 %Ukjjeh06.0-14.8The [facility] Physician GroupComment on above:Performed By: #### HEPACUTE, HBCAB, HBSAB #### [facility] ,Hematocrit (Bld) [Volume fraction]28.5 %Low38.8-50.0The [facility] Physician GroupComment on above:Performed By: #### HEPACUTE, HBCAB, HBSAB #### [facility] ,Hemoglobin (Bld) [Mass/Vol]9.4 g/dLLow13.0-17.0The [facility]ician [facility] Comment on above:Performed By: #### HEPACUTE, HBCAB, HBSAB #### [facility] ,HypochromasiaSlightTampa Shriners Hospital Physician GroupComment on above: Performed By: #### HEPACUTE, HBCAB, HBSAB #### [facility] ,Lymphocytes/100 WBC (Bld)15 %Ukl39-95Hqn [facility] Physician GroupComment on above:Performed By: #### HEPACUTE, HBCAB, HBSAB #### [facility] ,MCH (RBC) [Entitic mass]29.1 tcPgidpt93.5-35.2The [facility] Comment on above:Performed By: #### HEPACUTE, HBCAB, HBSAB #### [facility] ,MCV (RBC) [Entitic vol]88.5 xYJbfmqy47.5-101The [facility] Comment on above:Performed By: #### HEPACUTE, HBCAB, HBSAB #### [facility] ,Mean Corpuscular HGB Conc32.8 g/tAMkglmp16.5-35.6ThBear [facility]ician [facility] Comment on above:Performed By: #### HEPACUTE, HBCAB, HBSAB #### [facility] ,MicrocytosisSErlanger [facility] Hospital Physician GroupComment on above:Performed By: #### HEPACUTE, HBCAB, HBSAB #### [facility] ,Monocytes/100 WBC (Bld)13 %High2-11The [facility] Physician GroupComment on above:Performed By: #### HEPACUTE, HBCAB, HBSAB #### [facility] ,Myelocytes2 %High0-0The [facility] Physician GroupComment on above:Performed By: #### HEPACUTE, HBCAB, HBSAB #### [facility] ,Platelet EstimateNormalNormalTampa Shriners Hospital Physician GroupComment on above:Performed By: #### HEPACUTE, HBCAB, HBSAB #### [facility] ,Platelet mean volume (Bld) [Entitic vol]7.1 fLNormal6.6-10.1The [facility] Physician GroupComment on above:Performed By: #### HEPACUTE, HBCAB, HBSAB #### [facility] ,Platelet MorphologyNormalNormalTampa Shriners Hospital Physician GroupComment on above:Result Comment: PERFORMED BY: [facility] Raheem MAGAÑAVaish[place] [address] PATHOLOGIST SHUTTLER CAR CARLOS BIRMINGHAM M.D.Performed By: #### HEPACUTE, HBCAB, HBSAB #### [facility] ,Platelets (Bld) [#/Vol]240 10*3/tOMvhtut392-628Zbi [facility] Comment on above:Performed By: #### HEPACUTE, HBCAB, HBSAB #### [facility] ,PolychromasiaSlightTampa Shriners Hospital Physician GroupComment on above: Performed By: #### HEPACUTE, HBCAB, HBSAB #### [facility] ,RBC (Bld) [#/Vol]3.22 10*6/uLLow3.90-5.60The [facility] Physician GroupComment on above:Performed By: #### HEPACUTE, HBCAB, HBSAB #### [facility] ,Segmented neutrophils/100 WBC (Bld)63 %Sszbyv52-66Qfm [facility] Comment on above:Performed By: #### HEPACUTE, HBCAB, HBSAB #### [facility] ,WBC (Bld) [#/Vol]9.9 10*3/uLNormal4.1-10.5The [facility] Physician GroupComment on above:Performed By: #### HEPACUTE, HBCAB, HBSAB #### [facility] ,White Blood Count9.9 [CFU]/mLNormal4.1-10.5The [facility] Physician GroupComment on above:Performed By: #### HEPACUTE, HBCAB, HBSAB #### [facility] ,Glucose Poct Glucometerson 80-72-0842Crhlasq [Mass/Vol]218 mg/dLNoFormerly [facility], [facility] Physician GroupComment on above:Result Comment: Random Glucose Reference Range is dependent on time and content of last meal. Glucose of more than 200 mg/dL in a nonstressed, ambulatory subject supports the diagnosis of Diabetes Mellitus. PERFORMED BY: [place] [address] PATHOLOGIST SHUTTLER CAR CARLOS BIRMINGHAM M.D.Performed By: #### HEPACUTE, HBCAB, HBSAB #### [facility] ,Glucose [Mass/Vol]116 mg/dLNoFormerly [facility], [facility] Physician GroupComment on above: Result Comment: Random Glucose Reference Range is dependent on time and content of last meal. Glucose of more than 200 mg/dL in a nonstressed, ambulatory subject supports the diagnosis of Diabetes Mellitus. PERFORMED BY: [place] [address] PATHOLOGIST SHUTTLER CAR CARLOS BIRMINGHAM M.D.Performed By: #### RENAL, MG #### [address]Gl[address] [Mass/Vol]172 mg/dLNoFormerly [facility], [facility] Physician GroupComment on above:Result Comment: Random Glucose Reference Range is dependent on time and content of last meal. Glucose of more than 200 mg/dL in a nonstressed, ambulatory subject supports the diagnosis of Diabetes Mellitus. PERFORMED BY: [place] [address] PATHOLOGIST SHUTTLER CAR CARLOS BIRMINGHAM M.D.Performed By: #### HEPACUTE, HBCAB, HBSAB #### [facility] ,Glucose [Mass/Vol]142 mg/dLNoFormerly [facility], [facility] Physician GroupComment on above: Result Comment: Random Glucose Reference Range is dependent on time and content of last meal. Glucose of more than 200 mg/dL in a nonstressed, ambulatory subject supports the diagnosis of Diabetes Mellitus. PERFORMED BY: [address] [place] [address] PATHOLOGIST SHUTTLER CAR CARLOS BIRMINGHAM M.D.Performed By: #### GLULS #### Point of Care testing ,Magnesiumon 22-77-8546Xjffuhxwp [Mass/Vol]2.3 mg/dLNormal1.9-2.7The [facility] Physician GroupComment on above:Result Comment: PERFORMED BY: [facility] [address] [place] [address] PATHOLOGIST SHUTTLER CAR CARLOS BIRMINGHAM M.D.Performed By: #### HEPACUTE, HBCAB, HBSAB #### [facility] ,Complete Blood Count Auto Diffon [id number] (Bld) [#/Vol]0.1 10*3/uL Normal0.0-0.2The [facility] Physician GroupComment on above:Result Comment: PERFORMED BY: [facility] [address] [place] [address] PATHOLOGIST SHUTTLER CAR CARLOS BIRMINGHAM M.D.Performed By: #### GLULS #### Point of Care testing ,Basophils/100 WBC (Bld)0.9 %Normal.The [facility] Physician GroupComment on above:Performed By: #### GLULS #### Point of Care testing ,Eosinophils (Bld) [#/Vol]0.5 10*3/uLHigh0.0-0.45The [facility] Comment on above:Performed By: #### GLULS #### Point of Care testing ,Eosinophils/100 WBC (Bld)6.1 %Normal.The [facility] Physician GroupComment on above:Performed By: #### GLULS #### Point of Care testing ,Erythrocyte distribution width (RBC) [Ratio]14.7 %Nxtfqj52.0-14.8The [facility] Physician GroupComment on above:Performed By: #### GLULS #### Point of Care testing ,Hematocrit (Bld) [Volume fraction]25.9 %Low38.8-50.0The [facility] Physician GroupComment on above:Performed By: #### GLULS #### Point of Care testing ,Hemoglobin (Bld) [Mass/Vol]8.7 g/dLLow13.0-17.0The [facility] Comment on above:Performed By: #### GLULS #### Point of Care testing ,Lymphocytes (Bld) [#/Vol]1.2 10*3/uLNormal1.00-4.8The [facility] Comment on above:Performed By: #### GLULS #### Point of Care testing ,Lymphocytes/100 WBC (Bld)13.2 %Normal.The [facility] Physician GroupComment on above:Performed By: #### GLULS #### Point of Care testing ,MCH (RBC) [Entitic mass]29.5 laUqhlit76.5-35.2The [facility] Comment on above:Performed By: #### GLULS #### Point of Care testing ,MCV (RBC) [Entitic vol]87.7 gFPgybyc25.5-101The [facility] Comment on above:Performed By: #### GLULS #### Point of Care testing ,Mean Corpuscular HGB Conc33.6 g/eVDiwgwr59.5-35.6The [facility] Comment on above:Performed By: #### GLULS #### Point of Care testing ,Monocytes (Bld) [#/Vol]1.0 10*3/uLHigh0.0-0.8The [facility] Comment on above:Performed By: #### GLULS #### Point of Care testing ,Monocytes/100 WBC (Bld)11.6 %Normal.The [facility] Physician GroupComment on above:Performed By: #### GLULS #### Point of Care testing ,Neutrophils (Bld) [#/Vol]6.0 10*3/uLNormal1.8-7.7The [facility] Comment on above:Performed By: #### GLULS #### Point of Care testing ,Neutrophils/100 WBC (Bld)68.2 %Normal.The [facility] Physician GroupComment on above:Performed By: #### GLULS #### Point of Care testing ,NRBC%0.0 /100{WBC}Normal0-0.5The [facility] Physician GroupComment on above: Performed By: #### GLULS #### Point of Care testing ,Platelet mean volume (Bld) [Entitic vol]8.2 fLNormal6.6-10.1[facility] Physician GroupComment on above:Performed By: #### GLULS #### Point of Care testing ,Platelets (Bld) [#/Vol]150 10*3/eBIbzhinfp055-130Lea [facility] Comment on above:Performed By: #### GLULS #### Point of Care testing ,RBC (Bld) [#/Vol]2.96 10*6/uLLow3.90-5.60The [facility] Physician GroupComment on above:Performed By: #### GLULS #### Point of Care testing ,WBC (Bld) [#/Vol]8.7 10*3/uLNormal4.1-10.5The [facility] Physician GroupComment on above:Performed By: #### GLULS #### Point of Care testing ,White Blood Count8.7 [CFU]/mLNormal4.1-10.5The [facility] Physician GroupComment on above:Performed By: #### GLULS #### Point of Care testing ,Comprehensive Metabolic Panelon 24-02-8538Njdkjtr [Mass/Vol]2.8 g/dLLow3.5-5.7 The [facility] Physician GroupComment on above:Performed By: #### GLULS #### Point of Care testing ,Albumin/Globulin [Mass ratio]0.9 {ratio}NormalThe [facility] Comment on above:Performed By: #### GLULS #### Point of Care testing ,ALP [Catalytic activity/Vol]62 U/RMvvhnf91-696Gza [facility] Comment on above:Performed By: #### GLULS #### Point of Care testing ,ALT [Catalytic activity/Vol]U/LLow7-52The [facility] Physician GroupComment on above:Performed By: #### GLULS #### Point of Care testing ,Anion gap [Moles/Vol]17.2 mmol/LHigh6.0-15.0The [facility] Comment on above:Performed By: #### GLULS #### Point of Care testing ,AST [Catalytic activity/Vol]20 U/TExtxxq54-42Rsl [facility] Comment on above:Performed By: #### GLULS #### Point of Care testing ,Bilirubin [Mass/Vol]0.5 mg/dLNormal0.3-1.0The [facility] Physician GroupComment on above:Performed By: #### GLULS #### Point of Care testing ,Calcium [Mass/Vol]8.4 mg/dLLow8.6-10.3The [facility] Physician GroupComment on above:Performed By: #### GLULS #### Point of Care testing ,Chloride [Moles/Vol]96 mmol/FVus74-934Mab [facility] Physician GroupComment on above:Performed By: #### GLULS #### Point of Care testing ,CO2 [Moles/Vol]23.9 mmol/XTgttzm35.0-31.0The [facility] Physician GroupComment on above:Performed By: #### GLULS #### Point of Care testing ,Creatinine [Mass/Vol]7.26 mg/dLHigh0.70-1.30[facility] Comment on above:Performed By: #### GLULS #### Point of Care testing ,Creatinine Clr Calc Tdafcrhu53.82NoFormerly [facility], [facility] Physician GroupComment on above:Performed By: #### GLULS #### Point of Care testing ,GFR/1.73 sq M.predicted MDRD (S/P/Bld) [Vol rate/Area]7.787 mL/min/{1.73_m2} NormalAdventhealth Sebring Physician GroupComment on above:Performed By: #### GLULS #### Point of Care testing ,Globulin (S) [Mass/Vol]3.2 g/dLTampa Shriners Hospital Physician GroupComment on above:Performed By: #### GLULS #### Point of Care testing ,Glucose [Mass/Vol]220 mg/vJNndj36-698Jzl [facility] Physician GroupComment on above:Result Comment: Random Glucose Reference Range is dependent on time and content of last meal. Glucose of more than 200 mg/dL in a nonstressed, ambulatory subject supports the diagnosis of Diabetes Mellitus. ADA recommended reference rangePerformed By: #### GLULS #### Point of Care testing ,Potassium [Moles/Vol]4.1 mmol/LNormal3.5-5.1The [facility] Comment on above:Result Comment: Hemolysis is present at a level that could interfere with the result. Contact lab if redraw is requiredPerformed By: #### GLULS #### Point of Care testing ,Protein [Mass/Vol]6.0 g/dLLow6.4-8.9The [facility]portComment on above:Performed By: #### GLULS #### Point of Care testing ,Sodium [Moles/Vol]133 mmol/YXat224-134Hmh [facility] Physician GroupComment on above:Performed By: #### GLULS #### Point of Care testing ,Urea nitrogen [Mass/Vol]73 mg/dLHigh7-25The [facility] Physician GroupComment on above:Performed By: #### GLULS #### Point of Care testing ,Glucose Poct Glucometerson 39-86-0909Bbssbap [Mass/Vol]224 mg/dLNoSelect Medical Specialty Hospital - CincinnatiComment on above:Result Comment: Random Glucose Reference Range is dependent on time and content of last meal. Glucose of more than 200 mg/dL in a nonstressed, ambulatory subject supports the diagnosis of Diabetes Mellitus. PERFORMED BY: [address] [place] [address] PATHOLOGIST SHUTTLER CAR CARLOS BIRMINGHAM M.D.Performed By: #### HEPACUTE, HBCAB, HBSAB #### [facility] ,Glucose [Mass/Vol]204 mg/dLRidgeview Sibley Medical CenterComment on above: Result Comment: Random Glucose Reference Range is dependent on time and content of last meal. Glucose of more than 200 mg/dL in a nonstressed, ambulatory subject supports the diagnosis of Diabetes Mellitus. PERFORMED BY: [address] [place] [address] PATHOLOGIST SHUTTLER CAR CARLOS BIRMINGHAM M.D.Performed By: #### GLULS #### Point of Care testing ,Glucose [Mass/Vol]280 mg/dLTampa Shriners Hospital Physician GroupComment on above: Result Comment: Random Glucose Reference Range is dependent on time and content of last meal. Glucose of more than 200 mg/dL in a nonstressed, ambulatory subject supports the diagnosis of Diabetes Mellitus. PERFORMED BY: [place] [phone] PATHOLOGIST SHUTTLER CAR CARLOS BIRMINGHAM M.D.Performed By: #### RENAL #### [place] [address] USAMagnesiumon 35-18-5692Iesbkizqb [Mass/Vol]2.7 mg/dLNormal 1.9-2.7The [facility] Physician GroupComment on above:Result Comment: PERFORMED BY: [place] [phone] PATHOLOGIST SHUTTLER CAR CARLOS BIRMINGHAM M.D.Performed By: #### GLULS #### Point of Care testing ,Glucose Poct Glucometerson 89-82-8703Mgvghqc8Pjc3: Cleaned [facility] Physician [facility] GulfportComment on above:Result Comment: PERFORMED BY: [place] [phone] PATHOLOGIST SHUTTLER CAR CARLOS BIRMINGHAM M.D.Performed By: #### HEPACUTE, HBCAB, HBSAB #### [facility] ,Glucose [Mass/Vol]250 mg/dLTampa Shriners Hospital Physician GroupComment on above: Result Comment: Random Glucose Reference Range is dependent on time and content of last meal. Glucose of more than 200 mg/dL in a nonstressed, ambulatory subject supports the diagnosis of Diabetes Mellitus.Performed By: #### HEPACUTE, HBCAB, HBSAB #### [facility] ,Glucose [Mass/Vol]261 mg/dLTampa Shriners Hospital Physician GroupComment on above: Result Comment: Random Glucose Reference Range is dependent on time and content of last meal. Glucose of more than 200 mg/dL in a nonstressed, ambulatory subject supports the diagnosis of Diabetes Mellitus. PERFORMED BY: [place] [id number] PATHOLOGIST SHUTTLER CAR CARLOS BIRMINGHAM M.D.Performed By: #### HEPACUTE, HBCAB, HBSAB #### [facility] ,Glucose [Mass/Vol]185 mg/dLNoFormerly [facility], [facility] Physician GroupComment on above: Result Comment: Random Glucose Reference Range is dependent on time and content of last meal. Glucose of more than 200 mg/dL in a nonstressed, ambulatory subject supports the diagnosis of Diabetes Mellitus. PERFORMED BY: [place] [id number] PATHOLOGIST SHUTTLER CAR CARLOS BIRMINGHAM M.D.Performed By: #### HEPACUTE, HBCAB, HBSAB #### [facility] ,Glucose [Mass/Vol]114 mg/dLTampa Shriners Hospital Physician [facility] GulfportComment on above: Result Comment: Random Glucose Reference Range is dependent on time and content of last meal. Glucose of more than 200 mg/dL in a nonstressed, ambulatory subject supports the diagnosis of Diabetes Mellitus. PERFORMED BY: [place] [id number] PATHOLOGIST SHUTTLER CAR CARLOS BIRMINGHAM M.D.Performed By: #### HEPACUTE, HBCAB, HBSAB #### [facility] ,Hemogram CBC Without Diffon [id number] distribution width (RBC) [Ratio]14.7 %Svacvs62.0-14.8The [facility] Hospital Of PhiladelphiaComment on above: Performed By: #### GLULS #### Point of Care testing ,Hematocrit (Bld) [Volume fraction]29.1 %Low38.8-50.0The [facility] Hospital Of PhiladelphiaComment on above:Performed By: #### GLULS #### Point of Care testing ,Hemoglobin (Bld) [Mass/Vol]9.7 g/dLLow13.0-17.0[facility] Comment on above:Performed By: #### GLULS #### Point of Care testing ,MCH (RBC) [Entitic mass]28.9 hkKuibwu72.5-35.2The [facility] Comment on above:Performed By: #### GLULS #### Point of Care testing ,MCV (RBC) [Entitic vol]87.0 yVCfuqfv82.5-101The [facility] Comment on above:Performed By: #### GLULS #### Point of Care testing ,Mean Corpuscular HGB Conc33.3 g/xGOvuvlv84.5-35.6The [facility] Comment on above:Performed By: #### GLULS #### Point of Care testing ,Platelet mean volume (Bld) [Entitic vol]7.1 fLNormal6.6-10.1The [facility]ician [facility]portComment on above:Result Comment: PERFORMED BY: [place] [address] [place] [address] PATHOLOGIST SHUTTLER CAR CARLOS BIRMINGHAM M.D.Performed By: #### GLULS #### Point of Care testing ,Platelets (Bld) [#/Vol]202 10*3/eOXlenbv785-260Otu [facility] Comment on above:Performed By: #### GLULS #### Point of Care testing ,RBC (Bld) [#/Vol]3.34 10*6/uLLow3.90-5.60The [facility] GulfportComment on above:Performed By: #### GLULS #### Point of Care testing ,White Blood Count10.0 [CFU]/mLNormal4.1-10.5The [facility] Comment on above:Performed By: #### GLULS #### Point of Care testing ,Renal Function Panelon 01-20-3957Utrmdcj [Mass/Vol]3.1 g/dLLow3.5-5.7The [facility] Physician GroupComment on above:Performed By: #### GLULS #### Point of Care testing ,Anion gap [Moles/Vol]16.0 mmol/LHigh6.0-15.0The [facility] Comment on above:Performed By: #### GLULS #### Point of Care testing ,Calcium [Mass/Vol]8.8 mg/dLNormal8.6-10.3The [facility] Physician GroupComment on above:Performed By: #### GLULS #### Point of Care testing ,Chloride [Moles/Vol]95 mmol/ICyn46-888Cby [facility] Physician GroupComment on above:Performed By: #### GLULS #### Point of Care testing ,CO2 [Moles/Vol]28.1 mmol/UTgkovz76.0-31.0The [facility] Physician GroupComment on above:Performed By: #### GLULS #### Point of Care testing ,Creatinine [Mass/Vol]6.35 mg/dLHigh0.70-1.30The [facility]ician [facility] Comment on above:Performed By: #### GLULS #### Point of Care testing ,Creatinine Clr Calc Jszvaidn15.04NormalThe [facility] Physician GroupComment on above:Result Comment: PERFORMED BY: [address] [place] [address] PATHOLOGIST SHUTTLER CAR CARLOS BIRMINGHAM M.D.Performed By: #### GLULS #### Point of Care testing ,GFR/1.73 sq M.predicted MDRD (S/P/Bld) [Vol rate/Area]9.145 mL/min/{1.73_m2} NormalThe [facility] Physician GroupComment on above:Performed By: #### GLULS #### Point of Care testing ,Glucose [Mass/Vol]126 mg/gRXshy71-380Kzu [facility] Physician GroupComment on above:Result Comment: Random Glucose Reference Range is dependent on time and content of last meal. Glucose of more than 200 mg/dL in a nonstressed, ambulatory subject supports the diagnosis of Diabetes Mellitus. ADA recommended reference rangePerformed By: #### GLULS #### Point of Care testing ,Phosphate [Mass/Vol]5.4 mg/dLHigh2.5-4.5The [facility] Physician GroupComment on above:Performed By: #### GLULS #### Point of Care testing ,Potassium [Moles/Vol]4.1 mmol/LNormal3.5-5.1The [facility] Comment on above:Performed By: #### GLULS #### Point of Care testing ,Sodium [Moles/Vol]135 mmol/QMhw741-217Lkh [facility] Physician GroupComment on above:Performed By: #### GLULS #### Point of Care testing ,Urea nitrogen [Mass/Vol]65 mg/dLHigh7-25The [facility] Physician GroupComment on above:Performed By: #### GLULS #### Point of Care testing ,Complete Blood Count Auto Diffon [id number] (Bld) [#/Vol]0.0 10*3/uL Normal0.0-0.2The [facility] Physician GroupComment on above:Result Comment: PERFORMED BY: [place] [address] PATHOLOGIST SHUTTLER CAR CARLOS BIRMINGHAM M.D.Performed By: #### RENAL #### [place] [address] USABasophils/100 WBC (Bld)0.4 %Normal.The [facility] Physician GroupComment on above:Performed By: #### RENAL #### [place] [address] USAEosinophils (Bld) [#/Vol]0.3 10*3/uLNormal0.0-0.45The [facility] Physician GroupComment on above:Performed By: #### RENAL #### [place] [address] USAEosinophils/100 WBC (Bld)2.8 %Normal.The [facility] Physician GroupComment on above:Performed By: #### RENAL #### [place] [address] USAErythrocyte distribution width (RBC) [Ratio]15.3 %High 12.0-14.8The [facility] Physician GroupComment on above:Performed By: #### RENAL #### [place] [address] USAHematocrit (Bld) [Volume fraction]30.7 %Low38.8-50.0The [facility] Physician GroupComment on above:Performed By: #### RENAL #### [place] [address] USAHemoglobin (Bld) [Mass/Vol]10.1 g/dLLow13.0-17.0The [facility] Physician GroupComment on above:Performed By: #### RENAL #### [place] [address] USALymphocytes (Bld) [#/Vol]1.3 10*3/uLNormal1.00-4.8The [facility] Physician GroupComment on above:Performed By: #### RENAL #### [place] [address] USALymphocytes/100 WBC (Bld)12.8 %Normal.The [facility] Physician GroupComment on above:Performed By: #### RENAL #### [place] [address] USAMCH (RBC) [Entitic mass]28.9 jdKaynnv70.5-35.2The [facility] Physician GroupComment on above:Performed By: #### RENAL #### [place] [address] USAMCV (RBC) [Entitic vol]87.7 aZBqojcn81.5-101The [facility] Physician GroupComment on above:Performed By: #### RENAL #### [place] [address] USAMean Corpuscular HGB Conc33.0 g/tZOxktxi54.5-35.6The [facility] Physician GroupComment on above:Performed By: #### RENAL #### [place] [address] USAMonocytes (Bld) [#/Vol]0.9 10*3/uLHigh0.0-0.8The [facility] Physician GroupComment on above:Performed By: #### RENAL #### [address] [address] USAMonocytes/100 WBC (Bld)9.1 %Normal.The [facility] Physician GroupComment on above:Performed By: #### RENAL #### [facility] [address] [place] [address] USANeutrophils (Bld) [#/Vol]7.4 10*3/uLNormal1.8-7.7The [facility] Physician GroupComment on above:Performed By: #### RENAL #### [facility] [address] [place] [address] USANeutrophils/100 WBC (Bld)74.9 %Normal.The [facility] Physician GroupComment on above:Performed By: #### RENAL #### [facility] [address] [place] [address] USANRBC%0.1 /100{WBC}Normal0-0.5The [facility] Comment on above:Performed By: #### RENAL #### [facility] [address] [place] [address] USAPlatelet mean volume (Bld) [Entitic vol]7.4 fLNormal 6.6-10.1The [facility] Physician GroupComment on above:Performed By: #### RENAL #### [facility] [address] [place] [address] USAPlatelets (Bld) [#/Vol]176 10*3/bXNvluqx767-528Ega [facility] Physician GroupComment on above:Performed By: #### RENAL #### [facility] [address] [place] [address] USARBC (Bld) [#/Vol]3.50 10*6/uLLow3.90-5.60The [facility] Physician GroupComment on above:Performed By: #### RENAL #### [facility] [address] [place] [address] USAWBC (Bld) [#/Vol]10.0 10*3/uLNormal4.1-10.5The [facility] Physician GroupComment on above:Performed By: #### RENAL #### [facility] [address] [place] [address] USAWhite Blood Count10.0 [CFU]/mLNormal4.1-10.5The [facility] Physician GroupComment on above:Performed By: #### RENAL #### [facility] [address] [place] [address] USAGlucose Poct Glucometerson 99-36-6534Kvedymo [Mass/Vol]175 mg/dLNoFormerly [facility], [facility] Physician GroupComment on above:Result Comment: Random Glucose Reference Range is dependent on time and content of last meal. Glucose of more than 200 mg/dL in a nonstressed, ambulatory subject supports the diagnosis of Diabetes Mellitus. PERFORMED BY: [place] [address] PATHOLOGIST SHUTTLER CAR CARLOS BIRMINGHAM M.D.Performed By: #### GLULS #### Point of Care testing ,Glucose [Mass/Vol]181 mg/dLNoFormerly [facility], [facility] Physician GroupComment on above: Result Comment: Random Glucose Reference Range is dependent on time and content of last meal. Glucose of more than 200 mg/dL in a nonstressed, ambulatory subject supports the diagnosis of Diabetes Mellitus. PERFORMED BY: [place] [address] PATHOLOGIST SHUTTLER CAR CARLOS BIRMINGHAM M.D.Performed By: #### HEPACUTE, HBCAB, HBSAB #### [facility] ,Glucose [Mass/Vol]210 mg/dLNoFormerly [facility], [facility] Physician [facility]portComment on above: Result Comment: Random Glucose Reference Range is dependent on time and content of last meal. Glucose of more than 200 mg/dL in a nonstressed, ambulatory subject supports the diagnosis of Diabetes Mellitus. PERFORMED BY: [place] [address] PATHOLOGIST SHUTTLER CAR CARLOS BIRMINGHAM M.D.Performed By: #### RENAL #### [facility] [address] [place] [address] USAGlucose [Mass/Vol]194 mg/dLNoFormerly [facility], [facility] Physician GroupComment on above:Result Comment: Random Glucose Reference Range is dependent on time and content of last meal. Glucose of more than 200 mg/dL in a nonstressed, ambulatory subject supports the diagnosis of Diabetes Mellitus. PERFORMED BY: [place] [address] PATHOLOGIST SHUTTLER CAR CARLOS BIRMINGHAM M.D.Performed By: #### RENAL, MG #### [place] [address] USARenal Function Panelon 11-09-2883Nqmvmjq [Mass/Vol]3.1 g/dLLow3.5-5.7The [facility] Physician GroupComment on above:Performed By: #### HEPACUTE, HBCAB, HBSAB #### [facility] ,Anion gap [Moles/Vol]14.3 mmol/LNormal6.0-15.0The [facility] Physician [facility] Comment on above:Performed By: #### HEPACUTE, HBCAB, HBSAB #### [facility] ,Calcium [Mass/Vol]8.4 mg/dLLow8.6-10.3The [facility] Physician GroupComment on above:Performed By: #### HEPACUTE, HBCAB, HBSAB #### [facility] ,Chloride [Moles/Vol]95 mmol/WAqd14-974Fcc [facility] Physician GroupComment on above:Performed By: #### HEPACUTE, HBCAB, HBSAB #### [facility] ,CO2 [Moles/Vol]28.8 mmol/DAvczun12.0-31.0The [facility] Physician GroupComment on above:Performed By: #### HEPACUTE, HBCAB, HBSAB #### [facility] ,Creatinine [Mass/Vol]5.07 mg/dLHigh0.70-1.30The [facility] Physician [facility] Comment on above:Performed By: #### HEPACUTE, HBCAB, HBSAB #### [facility] ,Creatinine Clr Calc Nzzijihg22.49NormalThe [facility] Physician GroupComment on above:Result Comment: PERFORMED BY: [place] [address] PATHOLOGIST SHUTTLER CAR CARLOS BIRMINGHAM M.D.Performed By: #### HEPACUTE, HBCAB, HBSAB #### [facility] ,GFR/1.73 sq M.predicted MDRD (S/P/Bld) [Vol rate/Area]11.982 mL/min/{1.73_m2} NormalThe [facility] Hospital Physician GroupComment on above:Performed By: #### HEPACUTE, HBCAB, HBSAB #### [facility] ,Glucose [Mass/Vol]199 mg/rPWdbx51-736Qvy [facility] Physician GroupComment on above:Result Comment: Random Glucose Reference Range is dependent on time and content of last meal. Glucose of more than 200 mg/dL in a nonstressed, ambulatory subject supports the diagnosis of Diabetes Mellitus. ADA recommended reference rangePerformed By: #### HEPACUTE, HBCAB, HBSAB #### [facility] ,Phosphate [Mass/Vol]5.7 mg/dLHigh2.5-4.5The [facility] Physician GroupComment on above:Performed By: #### HEPACUTE, HBCAB, HBSAB #### [facility] ,Potassium [Moles/Vol]4.1 mmol/LNormal3.5-5.1[facility] Comment on above:Performed By: #### HEPACUTE, HBCAB, HBSAB #### [facility] ,Sodium [Moles/Vol]134 mmol/IDvd980-222Nbl [facility] Physician GroupComment on above:Performed By: #### HEPACUTE, HBCAB, HBSAB #### [facility] ,Urea nitrogen [Mass/Vol]52 mg/dLHigh7-25The [facility] Physician GroupComment on above:Performed By: #### HEPACUTE, HBCAB, HBSAB #### [facility] ,XR hip RT min 2V(w/wo pelvis)*on 17-21-3273AU hip RT min 2V(w/wo pelvis)* [facility] Main [address] [place] [address] XRay Report Signed Patient: Rashard Lyman MR#: [id number] : 1960 Acct:[id number] Age/Sex: 64 / M ADM Date: 12/23/24 Loc: 4N Room: [address] [place] [address] Type: ADM IN Attending Dr: Dinesh Cervantes [...] Mckinney M.D. 12/26/2024 5:01 PM Dictation Location: [place] [address] Transcribed By: [facility] 12/26/24 170 Dictated By: Hector Mckinney II, MD 12/26/24 170 Signed By: 12/26/24 170[facility] Physician GroupXR wrist RT 2Von 39-59-3277GG wrist RT 2V[facility] Main [address] [address] XRay Report Signed Patient: Rashard Lyman MR#: [id number] : 1960 Acct:[id number] Age/Sex: 64 / M ADM Date: 12/23/24 Loc: 4N Room: 0U4580-2 Type: ADM IN Attending Dr: Dinesh Cervantes [...] Mckinney M.D. 12/26/2024 5:00 PM Dictation Location: [place] [address] Transcribed By: [facility] 12/26/24 1700 Dictated By: Hector Mckinney II, MD 12/26/24 1659 Signed By: 12/26/24 170NoFormerly [facility], [facility] Physician GroupComplete Blood Count Auto Diffon 64-54-3032Gvviyxuaf (Bld) [#/Vol]0.1 10*3/uLNormal0.0-0.2The [facility] Physician GroupComment on above:Result Comment: PERFORMED BY: [place] [address] PATHOLOGIST SHUTTLER CAR CARLOS BIRMINGHAM M.D.Performed By: #### RENAL, MG #### [place] [address] USABasophils/100 WBC (Bld)0.4 %Normal.The [facility] Physician GroupComment on above:Performed By: #### RENAL, MG #### [place] [address] USAEosinophils (Bld) [#/Vol]0.0 10*3/uLNormal0.0-0.45The [facility] Physician GroupComment on above:Performed By: #### RENAL, MG #### [place] [address] USAEosinophils/100 WBC (Bld)0.0 %Normal.The [facility] Physician GroupComment on above:Performed By: #### RENAL, MG #### [place] [address] USAErythrocyte distribution width (RBC) [Ratio]14.8 %Normal 12.0-14.8The [facility] Physician GroupComment on above:Performed By: #### RENAL, MG #### [place] [address] USAHematocrit (Bld) [Volume fraction]31.3 %Low38.8-50.0The [facility] Physician GroupComment on above:Performed By: #### RENAL, MG #### [place] [address] USAHemoglobin (Bld) [Mass/Vol]10.3 g/dLLow13.0-17.0The [facility] Physician GroupComment on above:Performed By: #### RENAL, MG #### [place] [address] USALymphocytes (Bld) [#/Vol]0.9 10*3/uLLow1.00-4.8The [facility] Physician GroupComment on above:Performed By: #### RENAL, MG #### [place] [address] USALymphocytes/100 WBC (Bld)6.1 %Normal.The [facility] Physician GroupComment on above:Performed By: #### RENAL, MG #### [place] [address] USAMCH (RBC) [Entitic mass]28.9 zpIxrvka14.5-35.2The [facility] Physician GroupComment on above:Performed By: #### RENAL, MG #### [place] [address] USAMCV (RBC) [Entitic vol]87.5 aQCqyqoe52.5-101The [facility] Physician GroupComment on above:Performed By: #### RENAL, MG #### [place] [address] USAMean Corpuscular HGB Conc33.0 g/tNTdznnb43.5-35.6The [facility] Physician GroupComment on above:Performed By: #### RENAL, MG #### [facility] [address] [place] [address] USAMonocytes (Bld) [#/Vol]1.3 10*3/uLHigh0.0-0.8The [facility] Physician GroupComment on above:Performed By: #### RENAL, MG #### [facility] [address] [place] [address] USAMonocytes/100 WBC (Bld)9.0 %Normal.The [facility] Physician GroupComment on above:Performed By: #### RENAL, MG #### [facility] [address] [place] [address] USANeutrophils (Bld) [#/Vol]12.6 10*3/uLHigh1.8-7.7The [facility] Physician GroupComment on above:Performed By: #### RENAL, MG #### [facility] [address] [place] [address] USANeutrophils/100 WBC (Bld)84.5 %Normal.The [facility] Physician GroupComment on above:Performed By: #### RENAL, MG #### [facility] [address] [place] [address] USANRBC%0.1 /100{WBC}Normal0-0.5The [facility] Comment on above:Performed By: #### RENAL, MG #### [facility] [address] [place] [address] USAPlatelet mean volume (Bld) [Entitic vol]7.8 fLNormal 6.6-10.1The [facility] Physician GroupComment on above:Performed By: #### RENAL, MG #### [facility] [address] [place] [address] USAPlatelets (Bld) [#/Vol]170 10*3/dRGuouyn938-062Bno [facility] Physician GroupComment on above:Performed By: #### RENAL, MG #### [facility] [address] [place] [address] USARBC (Bld) [#/Vol]3.58 10*6/uLLow3.90-5.60The [facility] Physician GroupComment on above:Performed By: #### RENAL, MG #### [facility] [address] [place] [address] USAWBC (Bld) [#/Vol]15.0 10*3/uLHigh4.1-10.5The [facility] Physician GroupComment on above:Performed By: #### RENAL, MG #### [facility] [address] [place] [address] USAWhite Blood Count15.0 [CFU]/mLHigh4.1-10.5The [facility] Physician GroupComment on above:Performed By: #### RENAL, MG #### [facility] [address] [place] [address] USAGlucose Poct Glucometerson 61-70-0707Oegvdcc [Mass/Vol]298 mg/dLNoFormerly [facility], [facility] Physician [facility]portComment on above:Result Comment: Random Glucose Reference Range is dependent on time and content of last meal. Glucose of more than 200 mg/dL in a nonstressed, ambulatory subject supports the diagnosis of Diabetes Mellitus. PERFORMED BY: [place] [address] PATHOLOGIST SHUTTLER CAR CARLOS BIRMINGHAM M.D.Performed By: #### HEPACUTE, HBCAB, HBSAB #### [facility] ,Glucose [Mass/Vol]299 mg/dLTampa Shriners Hospital Physician [facility] GulfportComment on above: Result Comment: Random Glucose Reference Range is dependent on time and content of last meal. Glucose of more than 200 mg/dL in a nonstressed, ambulatory subject supports the diagnosis of Diabetes Mellitus. PERFORMED BY: [place] [address] PATHOLOGIST SHUTTLER CAR CARLOS BIRMINGHAM M.D.Performed By: #### HEPACUTE, HBCAB, HBSAB #### [facility] ,Fkvafve8Xry4: Cleaned MeterNormHCA [facility] Physician [facility] GulfportComment on above: Result Comment: PERFORMED BY: [address] [address] PATHOLOGIST SHUTTLER CAR CARLOS BIRMINGHAM M.D.Performed By: #### HEPACUTE, HBCAB, HBSAB #### [facility] ,Glucose [Mass/Vol]143 mg/dLNoFormerly [facility], [facility] Physician GroupComment on above: Result Comment: Random Glucose Reference Range is dependent on time and content of last meal. Glucose of more than 200 mg/dL in a nonstressed, ambulatory subject supports the diagnosis of Diabetes Mellitus.Performed By: #### HEPACUTE, HBCAB, HBSAB #### [facility] ,Glucose [Mass/Vol]218 mg/dLNoFormerly [facility], [facility] Physician GroupComment on above: Result Comment: Random Glucose Reference Range is dependent on time and content of last meal. Glucose of more than 200 mg/dL in a nonstressed, ambulatory subject supports the diagnosis of Diabetes Mellitus. PERFORMED BY: [place] [address] PATHOLOGIST SHUTTLER CAR CARLOS BIRMINGHAM M.D.Performed By: #### GLULS #### Point of Care testing ,Magnesiumon 59-10-1891Uwjeygcdi [Mass/Vol]2.5 mg/dLNormal1.9-2.7The [facility] Physician GroupComment on above:Result Comment: PERFORMED BY: [place] [address] PATHOLOGIST SHUTTLER CAR CARLOS BIRMINGHAM M.D.Performed By: #### RENAL, MG #### [facility] [address] [place] [address] USARenal Function Panelon 71-34-6124Psunbpb [Mass/Vol]3.1 g/dLLow3.5-5.7The [facility] Physician GroupComment on above:Performed By: #### RENAL, MG #### [facility] [address] [place] [address] USAAnion gap [Moles/Vol]19.1 mmol/LHigh6.0-15.0The [facility] Physician GroupComment on above:Performed By: #### RENAL, MG #### [facility] [address] [place] [address] USACalcium [Mass/Vol]8.3 mg/dLLow8.6-10.3The [facility] Physician GroupComment on above:Performed By: #### RENAL, MG #### [facility] [address] [place] [address] USAChloride [Moles/Vol]93 mmol/ZKdo96-366Aqk [facility] Physician GroupComment on above:Performed By: #### RENAL, MG #### [facility] [address] [place] [address] USACO2 [Moles/Vol]24.8 mmol/LLrwedo22.0-31.0The [facility] Physician GroupComment on above:Performed By: #### RENAL, MG #### [place] [address] USACreatinine [Mass/Vol]5.68 mg/dLHigh0.70-1.30The [facility] Physician GroupComment on above:Performed By: #### RENAL, MG #### [facility] [address] [place] [address] USACreatinine Clr Calc Suqnrdmg65.03NormPremier Health Upper Valley Medical Centere [facility] Physician GroupComment on above:Performed By: #### RENAL, MG #### [place] [address] USAGFR/1.73 sq M.predicted MDRD (S/P/Bld) [Vol rate/Area] 10.455 mL/min/{1.73_m2}NormalThe [facility] Physician GroupComment on above: Performed By: #### RENAL, MG #### [place] [address] USAGlucose [Mass/Vol]228 mg/lBCirb50-992Gtu [facility] Physician GroupComment on above:Result Comment: Random Glucose Reference Range is dependent on time and content of last meal. Glucose of more than 200 mg/dL in a nonstressed, ambulatory subject supports the diagnosis of Diabetes Mellitus. ADA recommended reference rangePerformed By: #### RENAL, MG #### [place] [address] USAPhosphate [Mass/Vol]7.2 mg/dLHigh2.5-4.5The [facility] Physician GroupComment on above:Performed By: #### RENAL, MG #### [place] [address] USAPotassium [Moles/Vol]4.9 mmol/LNormal3.5-5.1The [facility] Physician GroupComment on above:Performed By: #### RENAL, MG #### [place] [address] USASodium [Moles/Vol]132 mmol/AEaw767-003Agd [facility] Physician GroupComment on above:Performed By: #### RENAL, MG #### [place] [address] USAUrea nitrogen [Mass/Vol]65 mg/dLHigh7-25The [facility] Physician GroupComment on above:Performed By: #### RENAL, MG #### [place] [address] USABasic Metabolic Panelon 22-36-4006Xwlbh gap [Moles/Vol] 17.6 mmol/LHigh6.0-15.0The [facility] Physician GroupComment on above:Performed By: #### RENAL, MG #### [place] [address] USACalcium [Mass/Vol]8.4 mg/dLLow8.6-10.3The [facility] Physician GroupComment on above:Performed By: #### RENAL, MG #### [place] [address] USACO2 [Moles/Vol]21.2 mmol/CXkzxea61.0-31.0The [facility] Physician GroupComment on above:Performed By: #### RENAL, MG #### [place] [address] USACreatinine [Mass/Vol]6.64 mg/dLHigh0.70-1.30The [facility] Physician GroupComment on above:Performed By: #### RENAL, MG #### [place] [address] USACreatinine Clr Calc Fbplicta52.16NormalThe [facility] Physician GroupComment on above:Result Comment: PERFORMED BY: [place] [address] PATHOLOGIST SHUTTLER CAR CARLOS BIRMINGHAM M.D.Performed By: #### RENAL, MG #### [place] [address] USAGFR/1.73 sq M.predicted MDRD (S/P/Bld) [Vol rate/Area] 8.667 mL/min/{1.73_m2}NormalThe [facility] Physician GroupComment on above: Performed By: #### RENAL, MG #### [place] [address] USAGlucose [Mass/Vol]149 mg/tWRsew09-784Ogm [facility] Physician GroupComment on above:Result Comment: Random Glucose Reference Range is dependent on time and content of last meal. Glucose of more than 200 mg/dL in a nonstressed, ambulatory subject supports the diagnosis of Diabetes Mellitus. ADA recommended reference rangePerformed By: #### RENAL, MG #### [place] [address] USAPotassium [Moles/Vol]4.8 mmol/LNormal3.5-5.1The [facility] Physician [facility]portComment on above:Performed By: #### RENAL, MG #### [place] [address] USASodium [Moles/Vol]133 mmol/XXzo456-770Zod [facility] Physician GroupComment on above:Performed By: #### RENAL, MG #### [place] [address] USAUrea nitrogen [Mass/Vol]73 mg/dLHigh7-25The [facility] Physician GroupComment on above:Performed By: #### RENAL, MG #### [place] [address] USAComplete Blood Count Auto Diffon 59-67-0024Bzsgfocus (Bld) [#/Vol]0.1 10*3/uLNormal0.0-0.2The [facility] Physician GroupComment on above: Result Comment: PERFORMED BY: [place] [address] PATHOLOGIST SHUTTLER CAR CARLOS BIRMINGHAM M.D.Performed By: #### RENAL, MG #### [place] [address] USABasophils/100 WBC (Bld)0.6 %Normal.The [facility] Physician GroupComment on above:Performed By: #### RENAL, MG #### [place] [address] USAEosinophils (Bld) [#/Vol]0.5 10*3/uLHigh0.0-0.45The [facility] Physician GroupComment on above:Performed By: #### RENAL, MG #### [place] [address] USAEosinophils/100 WBC (Bld)3.6 %Normal.The [facility] Physician GroupComment on above:Performed By: #### RENAL, MG #### [place] [address] USAErythrocyte distribution width (RBC) [Ratio]14.9 %High 12.0-14.8The [facility] Physician GroupComment on above:Performed By: #### RENAL, MG #### [place] [address] USAHematocrit (Bld) [Volume fraction]33.2 %Low38.8-50.0The [facility] Physician GroupComment on above:Performed By: #### RENAL, MG #### [place] [address] USAHemoglobin (Bld) [Mass/Vol]11.1 g/dLLow13.0-17.0The [facility] Physician GroupComment on above:Performed By: #### RENAL, MG #### [place] [address] USALymphocytes (Bld) [#/Vol]1.6 10*3/uLNormal1.00-4.8The [facility] Physician GroupComment on above:Performed By: #### RENAL, MG #### [facility] [address] [place] [id number] USALymphocytes/100 WBC (Bld)12.8 %Normal.The [facility] Physician GroupComment on above:Performed By: #### RENAL, MG #### [facility] [address] [place] [address] USAH (RBC) [Entitic mass]28.9 ntPmcmac42.5-35.2The [facility] Physician GroupComment on above:Performed By: #### RENAL, MG #### [facility] [address] [place] [address] USAMCV (RBC) [Entitic vol]86.6 zSEhjqua12.5-101The [facility] Physician GroupComment on above:Performed By: #### RENAL, MG #### [facility] [address] [place] [address] USAMean Corpuscular HGB Conc33.4 g/iWIzggxl77.5-35.6The [facility] Physician GroupComment on above:Performed By: #### RENAL, MG #### [facility] [address] [place] [address] USAMonocytes (Bld) [#/Vol]1.1 10*3/uLHigh0.0-0.8The [facility] Physician GroupComment on above:Performed By: #### RENAL, MG #### [facility] [address] [place] [id number] USAMonocytes/100 WBC (Bld)9.0 %Normal.The [facility] Physician GroupComment on above:Performed By: #### RENAL, MG #### [facility] [address] [place] [id number] USANeutrophils (Bld) [#/Vol]9.3 10*3/uLHigh1.8-7.7The [facility] Physician GroupComment on above:Performed By: #### RENAL, MG #### [facility] [address] [place] [id number] USANeutrophils/100 WBC (Bld)74.0 %Normal.The [facility] Physician GroupComment on above:Performed By: #### RENAL, MG #### [place] [address] USANRBC%0.1 /100{WBC}Normal0-0.5The [facility] Comment on above:Performed By: #### RENAL, MG #### [place] [address] USAPlatelet mean volume (Bld) [Entitic vol]7.2 fLNormal 6.6-10.1The [facility] Physician GroupComment on above:Performed By: #### RENAL, MG #### [place] [address] USAPlatelets (Bld) [#/Vol]160 10*3/fXDdyzllxw673-330Bvj [facility] Physician GroupComment on above:Performed By: #### RENAL, MG #### [place] [address] USARBC (Bld) [#/Vol]3.83 10*6/uLLow3.90-5.60The [facility] Physician GroupComment on above:Performed By: #### RENAL, MG #### [place] [address] USAWBC (Bld) [#/Vol]12.5 10*3/uLHigh4.1-10.5The [facility] Physician GroupComment on above:Performed By: #### RENAL, MG #### [place] [address] USAWhite Blood Count12.5 [CFU]/mLHigh4.1-10.5The [facility] Physician GroupComment on above:Performed By: #### RENAL, MG #### [place] [address] USAFerritinon 66-31-3099Qisnvgtk [Mass/Vol]384.2 ng/mLHigh 23.9-336.2The [facility] Physician GroupComment on above:Result Comment: PERFORMED BY: [place] [address] PATHOLOGIST SHUTTLER CAR CARLOS BIRMINGHAM M.D.Performed By: #### GLULS #### Point of Care testing ,Glucose Poct Glucometerson 45-31-0152Akmbxvc [Mass/Vol]295 mg/dLNoFormerly [facility], [facility] Physician GroupComment on above:Result Comment: Random Glucose Reference Range is dependent on time and content of last meal. Glucose of more than 200 mg/dL in a nonstressed, ambulatory subject supports the diagnosis of Diabetes Mellitus. PERFORMED BY: [place] [address] PATHOLOGIST SHUTTLER CAR CARLOS BIRMINGHAM M.D.Performed By: #### RENAL, MG #### [place] [address] USAGlucose [Mass/Vol]258 mg/dLNoFormerly [facility], [facility] Physician GroupComment on above:Result Comment: Random Glucose Reference Range is dependent on time and content of last meal. Glucose of more than 200 mg/dL in a nonstressed, ambulatory subject supports the diagnosis of Diabetes Mellitus. PERFORMED BY: [place] [address] PATHOLOGIST SHUTTLER CAR CARLOS BIRMINGHAM M.D.Performed By: #### RENAL, MG #### [place] [address] USAGlucose [Mass/Vol]178 mg/dLNoFormerly [facility], [facility] Physician GroupComment on above:Result Comment: Random Glucose Reference Range is dependent on time and content of last meal. Glucose of more than 200 mg/dL in a nonstressed, ambulatory subject supports the diagnosis of Diabetes Mellitus. PERFORMED BY: [place] [address] PATHOLOGIST SHUTTLER CAR CARLOS BIRMINGHAM M.D.Performed By: #### RENAL, MG #### [place] [address] USAGlucose [Mass/Vol]169 mg/dLNormHCA Florida Suwannee Emergency Physician GroupComment on above:Result Comment: Random Glucose Reference Range is dependent on time and content of last meal. Glucose of more than 200 mg/dL in a nonstressed, ambulatory subject supports the diagnosis of Diabetes Mellitus. PERFORMED BY: [place] [phone] PATHOLOGIST SHUTTLER CAR CARLOS BIRMINGHAM M.D.Performed By: #### GLULS #### Point of Care testing ,Fbgmnxp2Vlr4: Cleaned MeterNoFormerly [facility], [facility] Physician GroupComment on above: Result Comment: PERFORMED BY: [place] [phone] PATHOLOGIST SHUTTLER CAR CARLOS BIRMINGHAM M.D.Performed By: #### RENAL, MG #### [place] [address] USAGlucose [Mass/Vol]154 mg/dLTampa Shriners Hospital Physician [facility] GulfportComment on above:Result Comment: Random Glucose Reference Range is dependent on time and content of last meal. Glucose of more than 200 mg/dL in a nonstressed, ambulatory subject supports the diagnosis of Diabetes Mellitus.Performed By: #### RENAL, MG #### [place] [address] USAGlucose [Mass/Vol]146 mg/dLNoFormerly [facility], [facility] Physician [facility] GulfportComment on above:Result Comment: Random Glucose Reference Range is dependent on time and content of last meal. Glucose of more than 200 mg/dL in a nonstressed, ambulatory subject supports the diagnosis of Diabetes Mellitus. PERFORMED BY: [place] [phone] PATHOLOGIST SHUTTLER CAR CARLOS BIRMINGHAM M.D.Performed By: #### RENAL, MG #### [place] [address] USAHepatitis Acute Panelon 90-89-5867XYrWj ScreenNegative NormalNegativeThe [facility]ician [facility] GulfportComment on above:Performed By: #### HEPACUTE, HBCAB, HBSAB #### [facility] ,Hepatitis A Antibody IgMNegativeNormalNegativeThe [facility] Comment on above:Result Comment: A negative anti-HAV IgM result suggests no recent or current HAV infection.Performed By: #### HEPACUTE, HBCAB, HBSAB #### [facility] ,Hepatitis B Core Antibody IgMNegativeNormalNegativeThe [facility] Physician GroupComment on above:Performed By: #### HEPACUTE, HBCAB, HBSAB #### [facility] ,Hepatitis C Virus AntibodyNon-ReactiveNormalNon ReactiveThe [facility] Physician GroupComment on above:Performed By: #### HEPACUTE, HBCAB, HBSAB #### [facility] ,Interpretation Hepatitis CCommentNormal.The [facility] Physician GroupComment on above:Result Comment: Not infected with HCV unless early or acute infection is suspected (which may be delayed in an immunocompromised individual), or other evidence exists to indicate HCV infection.Performed By: #### HEPACUTE, HBCAB, HBSAB #### [facility] ,Hepatitis B Core Antibodyon 80-32-0549Bkcgcpzfm B Core AntibodyNegativeNormal NegativeThe [facility] Physician GroupComment on above:Result Comment: Performed at: [facility] [id number] Medical Anthropologist: Mata Brian PhD, Phone: [phone] PERFORMED BY: [place] [id number] PATHOLOGIST SHUTTLER CAR CARLOS BIRMINGHAM M.D.Performed By: #### HEPACUTE, HBCAB, HBSAB #### [facility] ,Hepatitis B Surface Antibodyon 51-81-2060Diicdpozx B Surface Antibody Non-ReactiveNormal.The [facility] Physician GroupComment on above:Result Comment: Non Reactive: Not immune to HBV infection. Anti-HBs undetectable or less than 10 mIU/mL. Reactive: Evidence of HBV immunity. Anti-HBs levels greater than 10 mIU/mL.Performed By: #### HEPACUTE, HBCAB, HBSAB #### [facility] ,Iron and TIBC Profileon 12-24-2024% Iron Onxsryoqsl99.5 %Hgxj63-50Vyo [facility] Physician GroupComment on above:Performed By: #### GLULS #### Point of Care testing ,Iron [Mass/Vol]148 ug/aYQjkrbf86-544Oqe [facility] Physician GroupComment on above:Performed By: #### GLULS #### Point of Care testing ,Total Iron Binding Ekfikjpi955 ug/vRFjg459-217Lsp [facility] Comment on above:Performed By: #### GLULS #### Point of Care testing ,Transferrin [Mass/Vol]140 mg/vMPte449-507Arf [facility] Physician GroupComment on above:Performed By: #### GLULS #### Point of Care testing ,Magnesiumon 35-69-9884Kctkorbrh [Mass/Vol]2.5 mg/dLNormal1.9-2.7The [facility] Physician GroupComment on above:Result Comment: PERFORMED BY: [place] [address] PATHOLOGIST SHUTTLER CAR CARLOS BIRMINGHAM M.D.Performed By: #### GLULS #### Point of Care testing ,Renal Function Panelon 11-50-4986Mytwahg [Mass/Vol]3.2 g/dLLow3.5-5.7The [facility] Physician GroupComment on above:Performed By: #### GLULS #### Point of Care testing ,Anion gap [Moles/Vol]18.0 mmol/LHigh6.0-15.0The [facility] Comment on above:Performed By: #### GLULS #### Point of Care testing ,Calcium [Mass/Vol]8.5 mg/dLLow8.6-10.3The [facility] Physician GroupComment on above:Performed By: #### GLULS #### Point of Care testing ,Chloride [Moles/Vol]99 mmol/RDwmbjy67-329Lag [facility] Physician GroupComment on above:Performed By: #### GLULS #### Point of Care testing ,Performed By: #### RENAL, MG #### [place] [address] USACO2 [Moles/Vol]19.9 mmol/LLow21.0-31.0The [facility] Physician GroupComment on above:Performed By: #### GLULS #### Point of Care testing ,Creatinine [Mass/Vol]6.40 mg/dLHigh0.70-1.30The [facility] Comment on above:Performed By: #### GLULS #### Point of Care testing ,Creatinine Clr Calc Gocwlvih97.81NoFormerly [facility], [facility] Physician GroupComment on above:Performed By: #### GLULS #### Point of Care testing ,GFR/1.73 sq M.predicted MDRD (S/P/Bld) [Vol rate/Area]9.059 mL/min/{1.73_m2} NormalThe [facility] Physician GroupComment on above:Performed By: #### GLULS #### Point of Care testing ,Glucose [Mass/Vol]148 mg/nCJvys33-375Fhy [facility] Physician GroupComment on above:Result Comment: Random Glucose Reference Range is dependent on time and content of last meal. Glucose of more than 200 mg/dL in a nonstressed, ambulatory subject supports the diagnosis of Diabetes Mellitus. ADA recommended reference rangePerformed By: #### GLULS #### Point of Care testing ,Phosphate [Mass/Vol]6.5 mg/dLHigh2.5-4.5The [facility] Physician GroupComment on above:Performed By: #### GLULS #### Point of Care testing ,Potassium [Moles/Vol]4.9 mmol/LNormal3.5-5.1The [facility] Physician [facility] Comment on above:Performed By: #### GLULS #### Point of Care testing ,Sodium [Moles/Vol]132 mmol/XKdj825-571Ekn [facility] Physician GroupComment on above:Performed By: #### GLULS #### Point of Care testing ,Urea nitrogen [Mass/Vol]70 mg/dLHigh7-25The [facility] Physician GroupComment on above:Performed By: #### GLULS #### Point of Care testing ,ABO/Rh Retypeon 34-64-0492HRG/RH Recheck ResultPositiveNoFormerly [facility], [facility] Physician GroupComment on above:Order Comment: redrawResult Comment: PERFORMED BY: [facility] [address] [place] [address] PATHOLOGIST SHUTTLER CAR CARLOS BIRMINGHAM M.D.Basic Metabolic Panelon 02-83-9688Rpqij gap [Moles/Vol]15.6 mmol/LHigh6.0-15.0[facility] Physician GroupComment on above:Performed By: #### HEPACUTE, HBCAB, HBSAB #### [facility] ,Calcium [Mass/Vol]9.0 mg/dLNormal8.6-10.3TJohn E. Fogarty Memorial Hospital Physician GroupComment on above:Performed By: #### HEPACUTE, HBCAB, HBSAB #### [facility] ,Chloride [Moles/Vol]104 mmol/XAqvwbq29-006I[facility] Physician GroupComment on above:Performed By: #### HEPACUTE, HBCAB, HBSAB #### [facility] ,CO2 [Moles/Vol]19.8 mmol/LLow21.0-31.0The [facility] Physician GroupComment on above:Performed By: #### HEPACUTE, HBCAB, HBSAB #### [facility] ,Creatinine [Mass/Vol]5.46 mg/dLHigh0.70-1.30The [facility] Comment on above:Performed By: #### HEPACUTE, HBCAB, HBSAB #### [facility] ,Creatinine Clr Calc Uhzxhbmo49.66NoFormerly [facility], [facility] Physician GroupComment on above:Performed By: #### HEPACUTE, HBCAB, HBSAB #### [facility] ,GFR/1.73 sq M.predicted MDRD (S/P/Bld) [Vol rate/Area]10.962 mL/min/{1.73_m2} NormalAdventhealth Sebring Physician GroupComment on above:Performed By: #### HEPACUTE, HBCAB, HBSAB #### [facility] ,Glucose [Mass/Vol]288 mg/dPEyan25-889Ico [facility] Physician GroupComment on above:Result Comment: Random Glucose Reference Range is dependent on time and content of last meal. Glucose of more than 200 mg/dL in a nonstressed, ambulatory subject supports the diagnosis of Diabetes Mellitus. ADA recommended reference rangePerformed By: #### HEPACUTE, HBCAB, HBSAB #### [facility] ,Potassium [Moles/Vol]5.4 mmol/LHigh3.5-5.1The [facility] Physician GroupComment on above:Performed By: #### HEPACUTE, HBCAB, HBSAB #### [facility] ,Sodium [Moles/Vol]134 mmol/WRew247-749Irl [facility] Physician GroupComment on above:Performed By: #### HEPACUTE, HBCAB, HBSAB #### [facility] ,Urea nitrogen [Mass/Vol]65 mg/dLHigh7-25The [facility] Physician GroupComment on above:Performed By: #### HEPACUTE, HBCAB, HBSAB #### [facility] ,Anion gap [Moles/Vol]17.6 mmol/LHigh6.0-15.0The [facility] Comment on above:Performed By: #### HEPACUTE, HBCAB, HBSAB #### [facility] ,Calcium [Mass/Vol]9.2 mg/dLNormal8.6-10.3The [facility] Physician GroupComment on above:Performed By: #### HEPACUTE, HBCAB, HBSAB #### [facility] ,Chloride [Moles/Vol]104 mmol/QMzrwuo64-533Swx [facility] Physician GroupComment on above:Performed By: #### HEPACUTE, HBCAB, HBSAB #### [facility] ,CO2 [Moles/Vol]17.2 mmol/LLow21.0-31.0The [facility] Physician GroupComment on above:Performed By: #### HEPACUTE, HBCAB, HBSAB #### [facility] ,Creatinine [Mass/Vol]5.53 mg/dLHigh0.70-1.30The [facility] Comment on above:Performed By: #### HEPACUTE, HBCAB, HBSAB #### [facility] ,Creatinine Clr Calc Mqpotsws86.41NormPremier Health Upper Valley Medical Centere [facility] Physician GroupComment on above:Result Comment: PERFORMED BY: [facility] [place] [address] PATHOLOGIST SHUTTLER CAR CARLOS BIRMINGHAM M.D.Performed By: #### HEPACUTE, HBCAB, HBSAB #### [facility] ,GFR/1.73 sq M.predicted MDRD (S/P/Bld) [Vol rate/Area]10.795 mL/min/{1.73_m2} NormalThe [facility] Physician GroupComment on above:Performed By: #### HEPACUTE, HBCAB, HBSAB #### [facility] ,Glucose [Mass/Vol]280 mg/uBHlze92-261Zwo [facility] Physician GroupComment on above:Result Comment: Random Glucose Reference Range is dependent on time and content of last meal. Glucose of more than 200 mg/dL in a nonstressed, ambulatory subject supports the diagnosis of Diabetes Mellitus. ADA recommended reference rangePerformed By: #### HEPACUTE, HBCAB, HBSAB #### [facility] ,Potassium [Moles/Vol]5.8 mmol/LHigh3.5-5.1The [facility] Physician GroupComment on above:Result Comment: Hemolysis is present at a level that could interfere with the result. Contact lab if redraw is requiredPerformed By: #### HEPACUTE, HBCAB, HBSAB #### [facility] ,Sodium [Moles/Vol]133 mmol/NAex865-545Hri [facility] Physician GroupComment on above:Performed By: #### HEPACUTE, HBCAB, HBSAB #### [facility] ,Urea nitrogen [Mass/Vol]66 mg/dLHigh7-25The [facility] Physician GroupComment on above:Performed By: #### HEPACUTE, HBCAB, HBSAB #### [facility] ,Creatine Kinaseon 41-84-3354ZG [Catalytic activity/Vol]190 U/KTyymuu32-792Vrl [facility] Physician GroupComment on above:Result Comment: PERFORMED BY: [place] [address] PATHOLOGIST SHUTTLER CAR CARLOS BIRIMNGHAM M.D.Performed By: #### RENAL, MG #### [place] [address] USAECG 12 lead ECGon 94-08-5626OCD 12 lead ECGSELECT [facility] [place] [place] [address] Electrocardiograph Report Signed Patient: Rashard Lyman MR#: [id number] : 1960 Acct:[id number] Age/Sex: 64 / M ADM Date: 12/23/24 Loc: 4N Room: [address] [place] [address] Type: ADM IN Attending Dr: Leno Dela [...] in Anterior leads Confirmed by Adrian Farmer ([id number]) on 12/23/2024 2:14:11 PM Referred By: Electronically Signed By: Adrian Farmer Transcribed By: MUS Signed By Adrian Farmer MD 12/23/24 1414NoFormerly [facility], [facility] Physician GroupECH echo transthoracicon 04-50-0048PKH echo transthoracicSELECT [facility]ICAL [facility] Main [place] [id number] Echocardiogram Signed Patient: Rashard Lyman MR#: [id number] : 1960 Acct:[id number] Age/Sex: 64 / M ADM Date: 12/23/24 Loc: 4N Room: 7Z2607-1 Type: ADM IN Attending Dr: Leno Dela [...] 1027 Signed By: Ghislaine Arias MD 12/23/24 1135[facility] Ferritinon 96-88-6011Zzhacaww [Mass/Vol]378.8 ng/rHAsgr36.9-336.2The [facility] Physician [facility] GulfportComment on above:Result Comment: PERFORMED BY: [place] [address] [place] [address] PATHOLOGIST SHUTTLER CAR CARLOS BIRMINGHAM M.D.Performed By: #### HEPACUTE, HBCAB, HBSAB #### [facility] ,Glucose Poct Glucometerson 12-98-2730Jrkmoav [Mass/Vol]223 mg/dLNoFormerly [facility], [facility] Physician GroupComment on above:Result Comment: Random Glucose Reference Range is dependent on time and content of last meal. Glucose of more than 200 mg/dL in a nonstressed, ambulatory subject supports the diagnosis of Diabetes Mellitus. PERFORMED BY: [place] [address] PATHOLOGIST SHUTTLER CAR CARLOS BIRMINGHAM M.D.Performed By: #### HEPACUTE, HBCAB, HBSAB #### [facility] ,Glucose [Mass/Vol]201 mg/dLNoFormerly [facility], [facility] Physician GroupComment on above: Result Comment: Random Glucose Reference Range is dependent on time and content of last meal. Glucose of more than 200 mg/dL in a nonstressed, ambulatory subject supports the diagnosis of Diabetes Mellitus. PERFORMED BY: [place] [address] PATHOLOGIST SHUTTLER CAR CARLOS BIRMINGHAM M.D.Performed By: #### GLULS #### Point of Care testing ,Glucose [Mass/Vol]234 mg/dLNoFormerly [facility], [facility] Physician GroupComment on above: Result Comment: Random Glucose Reference Range is dependent on time and content of last meal. Glucose of more than 200 mg/dL in a nonstressed, ambulatory subject supports the diagnosis of Diabetes Mellitus. PERFORMED BY: [place] [address] PATHOLOGIST SHUTTLER CAR CARLOS BIRMINGHAM M.D.Performed By: #### RENAL, MG #### [place] [address] USAGlucose [Mass/Vol]292 mg/dLNoFormerly [facility], [facility] Physician GroupComment on above:Result Comment: Random Glucose Reference Range is dependent on time and content of last meal. Glucose of more than 200 mg/dL in a nonstressed, ambulatory subject supports the diagnosis of Diabetes Mellitus. PERFORMED BY: [facility] [address] [place] [address] PATHOLOGIST SHUTTLER CAR CARLOS BIRMINGHMA M.D.Performed By: #### GLULS #### Point of Care testing ,Hemogram CBC Without Diffon 68-43-7850Oqzxlmgffux distribution width (RBC) [Ratio]15.0 %High12.0-14.8The [facility] Physician GroupComment on above: Performed By: #### HEPACUTE, HBCAB, HBSAB #### [facility] ,Hematocrit (Bld) [Volume fraction]39.1 %Qwwizr24.8-50.0The [facility] Physician GroupComment on above:Performed By: #### HEPACUTE, HBCAB, HBSAB #### [facility] ,Hemoglobin (Bld) [Mass/Vol]12.7 g/dLLow13.0-17.0The [facility] Comment on above:Performed By: #### HEPACUTE, HBCAB, HBSAB #### [facility] ,MCH (RBC) [Entitic mass]28.4 qjCqabzm95.5-35.2The [facility] Comment on above:Performed By: #### HEPACUTE, HBCAB, HBSAB #### [facility] ,MCV (RBC) [Entitic vol]87.7 vQMzmtjk49.5-101The [facility] Comment on above:Performed By: #### HEPACUTE, HBCAB, HBSAB #### [facility] ,Mean Corpuscular HGB Conc32.4 g/dLLow32.5-35.6The [facility] Comment on above:Performed By: #### HEPACUTE, HBCAB, HBSAB #### [facility] ,Platelet mean volume (Bld) [Entitic vol]6.8 fLNormal6.6-10.1The [facility] Physician GroupComment on above:Result Comment: PERFORMED BY: [facility] [address] [place] [address] PATHOLOGIST SHUTTLER CAR CARLOS BIRMINGHAM M.D.Performed By: #### HEPACUTE, HBCAB, HBSAB #### [facility] ,Platelets (Bld) [#/Vol]225 10*3/pRCdtobg600-372Llv [facility] Physician [facility] Comment on above:Performed By: #### HEPACUTE, HBCAB, HBSAB #### [facility] ,RBC (Bld) [#/Vol]4.46 10*6/uLNormal3.90-5.60The [facility] Comment on above:Performed By: #### HEPACUTE, HBCAB, HBSAB #### [facility] ,White Blood Count16.0 [CFU]/mLHigh4.1-10.5The [facility] Physician GroupComment on above:Performed By: #### HEPACUTE, HBCAB, HBSAB #### [facility] ,Iron and TIBC Profileon 12-23-2024% Iron Cmvsajienh87.6 %Whi21-05Hte [facility] Physician GroupComment on above:Performed By: #### HEPACUTE, HBCAB, HBSAB #### [facility] ,Iron [Mass/Vol]30 ug/nNMlx00-292Xoe [facility] Physician GroupComment on above: Performed By: #### HEPACUTE, HBCAB, HBSAB #### [facility] ,Total Iron Binding Arajhokt259 ug/iNZkt161-888Qru [facility] Comment on above:Performed By: #### HEPACUTE, HBCAB, HBSAB #### [facility] ,Transferrin [Mass/Vol]158 mg/zMInj744-794Aea [facility] Physician GroupComment on above:Performed By: #### HEPACUTE, HBCAB, HBSAB #### [facility] ,Potassiumon 33-10-9334Emjxkixch [Moles/Vol]4.8 mmol/LNormal3.5-5.1The [facility] Physician GroupComment on above:Result Comment: PERFORMED BY: [facility] [place] [address] PATHOLOGIST SHUTTLER CAR CARLOS BIRMINGHAM M.D.Performed By: #### RENAL, MG #### [place] [address] USARenal Function Panelon 97-86-2764Tfkjmao [Mass/Vol]3.4 g/dLLow3.5-5.7The [facility] Physician GroupComment on above:Performed By: #### RENAL #### [place] [address] USAAnion gap [Moles/Vol]13.6 mmol/LNormal6.0-15.0The [facility] Physician GroupComment on above:Performed By: #### RENAL #### [place] [address] USACalcium [Mass/Vol]8.9 mg/dLNormal8.6-10.3The [facility] Physician GroupComment on above:Performed By: #### RENAL #### [place] [address] USAChloride [Moles/Vol]100 mmol/PBijxgk43-218Xaw [facility] Physician GroupComment on above:Performed By: #### RENAL #### [place] [address] USACO2 [Moles/Vol]24.3 mmol/SRpvbyz63.0-31.0The [facility] Physician GroupComment on above:Performed By: #### RENAL #### [place] [address] USACreatinine [Mass/Vol]5.69 mg/dLHigh0.70-1.30The [facility] Physician GroupComment on above:Performed By: #### RENAL #### [place] [address] USACreatinine Clr Calc Pkkpvsrd49.86NormalThe [facility] Physician GroupComment on above:Result Comment: PERFORMED BY: [place] [address] PATHOLOGIST SHUTTLER CAR CARLOS BIRMINGHAM M.D.Performed By: #### RENAL #### [place] [address] USAGFR/1.73 sq M.predicted MDRD (S/P/Bld) [Vol rate/Area] 10.432 mL/min/{1.73_m2}NormalThe [facility] Physician GroupComment on above: Performed By: #### RENAL #### [place] [address] USAGlucose [Mass/Vol]209 mg/pRIueu88-407Uel [facility] Physician GroupComment on above:Result Comment: Random Glucose Reference Range is dependent on time and content of last meal. Glucose of more than 200 mg/dL in a nonstressed, ambulatory subject supports the diagnosis of Diabetes Mellitus. ADA recommended reference rangePerformed By: #### RENAL #### [place] [address] USAPhosphate [Mass/Vol]6.9 mg/dLHigh2.5-4.5The [facility] Physician GroupComment on above:Performed By: #### RENAL #### [place] [address] USAPotassium [Moles/Vol]4.9 mmol/LNormal3.5-5.1The [facility] Physician GroupComment on above:Performed By: #### RENAL #### [place] [address] USASodium [Moles/Vol]133 mmol/PPhe836-824Lxh [facility] Physician GroupComment on above:Performed By: #### RENAL #### [place] [address] USAUrea nitrogen [Mass/Vol]64 mg/dLHigh7-25The [facility] Physician GroupComment on above:Performed By: #### RENAL #### [place] [address] USATroponin I High Sensitivityon 05-69-5238Wxpugdzl I High Euedihkyitu961Wmn scale high0-20The [facility] Physician GroupComment on above: Result Comment: Critical Result : Called to and read back by: MAC BECERRA at: 12/23/2024 06:03:32 by:ALAN The Troponin units of report have been changed to meet the Chest Pain Accreditation requirement, element EC5.M1l2. Troponin units are changed from pg/ml to ng/L. Also, the decimal is removed and results are in whole numbers. PERFORMED BY: [place] [address] PATHOLOGIST SHUTTLER CAR CARLOS BIRMINGHAM M.D.Performed By: #### HEPACUTE, HBCAB, HBSAB #### [facility] ,Troponin I High Ymfjtttacrn958Xxb scale high0-20The [facility] Comment on above:Result Comment: Critical Result : Called to and read back by: MAC BECERRA at: 12/23/2024 04:28:13 by:ALAN The Troponin units of report have been changed to meet the Chest Pain Accreditation requirement, element EC5.M1l2. Troponin units are changed from pg/ml to ng/L. Also, the decimal is removed and results are in whole numbers. PERFORMED BY: [place] [address] PATHOLOGIST SHUTTLER CAR CARLOS BIRMINGHAM M.D.Performed By: #### RENAL, MG #### [place] [address] USAType and Screenon 20-56-8221ZNE and Rh group Nom (Bld) Blood group A Rh(D) positiveNoFormerly [facility], [facility] Physician GroupUS renal BIon 47-00-6177NV renal [facility] Main [place] [address] [place] [address] Ultrasound Report Signed Patient: Rashard Lyman MR#: [id number] : 1960 Acct:[id number] Age/Sex: 64 / M ADM Date: 12/23/24 Loc: Room: [address] [place] [address] Type: ADM IN Attending Dr: Leno Dela [...] Jr., D.O. 12/23/2024 3:36 PM Dictation Location: [place] [address] Tech: Diana Bernard Transcribed By: [facility] 12/23/24 153 Dictated By: Clayton Cuevas Jr, DO 12/23/24 153 Signed By: 12/23/24 1536[facility] Physician GroupNo Panel InformationOrdered By: Chino Elliott on 27-82-2622Ciuzloprfudkj Pathology TestSee commentLicking Memorial HospitalComment on above:See report. Scanned copy available in EMR.Pathology Request for Lab Corpon 73-27-7496Ntoxzurce Request for Lab Truman NormalThe Highlands-Cashiers Hospital Physician GroupComment on above:Order Comment: RIGHT FOREFOOTResult Comment: See report. Scanned copy available in EMR. PERFORMED BY: [facility] [address] [place] [address] PATHOLOGIST SHUTTLER CAR CARLOS BIRMINGHAM M.D.Performed By: #### GLULS #### Point of Care testing ,No Panel InformationOrdered By: Chino Elliott on 32-86-3638Yowwlhvtxljep Pathology TestSee commentLicking Memorial HospitalComment on above:See report. Scanned copy available in EMR.Pathology Request for Lab Corpon [id number] Request for Lab CorpNoFormerly [facility], [facility] Comment on above:Order Comment: RIGHT HALLUXResult Comment: See report. Scanned copy available in EMR. PERFORMED BY: [facility] [address] [place] [address] PATHOLOGIST SHUTTLER CAR NIMA MCCLELLAN M.D.Performed By: #### HEPACUTE, HBCAB, HBSAB #### [facility] ,BLOOD UREA NITROGENon 59-94-3042Ebgi nitrogen [Mass/Vol]40 mg/dLHigh5-27 [facility] CenterComment on above:Performed By: #### ELEC, 3094-0, VALUE ANALYSIS COORDINATOR, 33861-0 #### [facility] ([id number]) [address] [place] [address] 05749 #### 73395-6, HA1C #### [facility] ([id number]) [address] [place] [address], [address] [place], [place] [address]RHZ AND AUTO DIFFon 36-90-9151PSKLSPQM BASOPHIL0.0 X10E9/LNormal 0.0-0.2ProMedKaiser Foundation HospitalComment on above:Performed By: #### UA #### [facility] ([id number]) [address] [place] [address] 70141DLQEMHBP NEUTROPHIL5.2 X10E9/LNormal1.5-6.6ProTexas Orthopedic HospitalComment on above:Performed By: #### UA #### [facility] ([id number]) [address] [place] [address] 33330Kutvgdhgh/100 WBC (Bld)0.6 %[facility] Comment on above:Performed By: #### UA #### [facility] ([id number]) [address] [place] [address] 11717Adwadohnkap (Bld) [#/Vol]0.6 10*3/uLHigh0.0-0.4[facility] Soin Medical CenterComment on above:Performed By: #### UA #### [facility] ([id number]) [address] [place] [address] 40876Cvxoaatuhfa/100 WBC (Bld)6.5 %[facility] Comment on above:Performed By: #### UA #### [facility] ([id number]) [address] [place] [address] 98502Jbgmkohrlvp distribution width (RBC) [Ratio]14.2 %Normal 11.5-15.0[facility] So[facility] Medical CenterComment on above:Performed By: #### UA #### [facility] ([id number]) [address] [place] [address] 45691Xxuygiobnb (Bld) [Volume fraction]37.5 %Ofv14-19FdtIqdeooTexas Orthopedic HospitalComment on above:Performed By: #### UA #### [facility] ([id number]) [address] [place] [address] 55849Yijfqrhdrc (Bld) [Mass/Vol]12.3 g/dLLow13.0-17.0[facility] Medical CenterComment on above:Performed By: #### UA #### [facility] ([id number]) [address] [place] [address] 11874Jogsuboxwge (Bld) [#/Vol]1.9 10*3/uLNormal1.0-3.5PLima City HospitalComment on above:Performed By: #### UA #### [facility] ([id number]) [address] [place] [address] 90891Wivqplapqit/100 WBC (Bld)21.4 %NormalKettering Health – Soin Medical Center Comment on above:Performed By: #### UA #### [facility] ([id number]) [address] [place] [address] 22863PZI (RBC) [Entitic mass]29.3 dcCzlkik54-52WqzLttfidTexas Orthopedic HospitalComment on above:Performed By: #### UA #### [facility] ([id number]) [address] [place] [address] 48305MZRT (RBC) [Mass/Vol]32.7 g/zNTmyryi69-86NihQjipwsTexas Orthopedic HospitalComment on above:Performed By: #### UA #### [facility] ([id number]) [address] [place] [address] 05305ODO (RBC) [Entitic vol]90 mZGvsadz03-858SugIvsxqcKettering Health – Soin Medical CenterComment on above:Performed By: #### UA #### [facility] ([id number]) [address] [place] [address] 82613Bajkhnwnm (Bld) [#/Vol]1.1 10*3/uLHigh0-0.9[facility] Medical CenterComment on above:Performed By: #### UA #### [facility] ([id number]) [address] [place] [address] 53009Sjcssqoxj/100 WBC (Bld)12.8 %NormalKettering Health – Soin Medical Center Comment on above:Performed By: #### UA #### [facility] ([id number]) [address] [place] [address] 10096Ggwxcqxykjj/100 WBC (Bld)58.7 %[facility] Comment on above:Performed By: #### UA #### [facility] ([id number]) [address] [place] [address] 54478Mrmhujwl mean volume (Bld) [Entitic vol]6.6 fLLow7-12[facility] Medical CenterComment on above:Performed By: #### UA #### [facility] ([id number]) [address] [place] [address] 86629Pelogplox (Bld) [#/Vol]281 10*3/pZJwckbn519-342RtiAcbszx Fremont HospitalComment on above:Performed By: #### UA #### [facility] ([id number]) [address] [place] [address] 25461ECV COUNT4.19 X10E12/LNormal4.10-5.70[facility] Comment on above:Performed By: #### UA #### [facility] ([id number]) [address] [place] [address] 92666AKY (Bld) [#/Vol]8.8 10*3/uLNormal4.0-11.0[facility] Medical CenterComment on above:Performed By: #### UA #### [facility] ([id number]) [address] [place] [address] 64821OUINSGWGUIbf 92-91-8985Txmftfwzpb [Mass/Vol]3.74 mg/dLHigh 0.70-1.20ProTexas Orthopedic HospitalComment on above:Result Comment: METHOD TRACEABLE TO IDMS STANDARDPerformed By: #### PHIL, 3094-0, VALUE ANALYSIS COORDINATOR, 93416-8 #### [facility] ([id number]) [address] [place] [address] 72682 #### 00660-7, HA1C #### [facility] ([id number]) [address] [address] [place], [place] [address]RFX/1.73 sq M.predicted among non-blacks MDRD (S/P/Bld) [Vol rate/Area]17 mL/min/{1.73_m2}Low>59ProTexas Orthopedic HospitalComment on above: Result Comment: Reported eGFR is based on the CKD-EPI 2020 equation that does not use a race coefficient.Performed By: #### PHIL, 3094-0, VALUE ANALYSIS COORDINATOR, 96895-3 #### [facility] ([id number]) [address] [place] [address] 82884 #### 25946-6, HA1C #### [facility] ([id number]) [address] [place], [place] [address]XKEHOSZDEIFXgr 54-83-3635Zbwos gap [Moles/Vol]8 mmol/LNormal5-15 ProMTorrance Memorial Medical CenterComment on above:Performed By: #### PHIL, 3094-0, VALUE ANALYSIS COORDINATOR, 74238-7 #### [facility] ([id number]) [address] [place] [address] 76786 #### 67686-4, HA1C #### [facility] ([id number]) [address], [address] [place], [place] [address]Sdkdqeqk [Moles/Vol]106 mmol/OTjwcnj52-133OcdFrubviTexas Orthopedic HospitalComment on above:Performed By: #### ELEC, 3094-0, VALUE ANALYSIS COORDINATOR, 66312-6 #### [facility] ([id number]) [address] [place] [address] 19952 #### 67152-7, HA1C #### [facility] ([id number]) [address], [address] [place], [place] [address]DA6 [Moles/Vol]21 mmol/QYdk38-35JxtMhcirvLima City Hospital Comment on above:Performed By: #### ELEC, 3094-0, VALUE ANALYSIS COORDINATOR, 95701-3 #### [facility] ([id number]) [address] [place] [address] 74573 #### 85012-0, HA1C #### [facility] ([id number]) [address], [address] [place], [place] [address]Ujmubxolr [Moles/Vol]5.2 mmol/LHigh3.5-5.0ProTexas Orthopedic HospitalComment on above:Performed By: #### ELEC, 3094-0, VALUE ANALYSIS COORDINATOR, 32528-9 #### [facility] ([id number]) [address] [place] [address] 23206 #### 28872-4, HA1C #### [facility] ([id number]) [address], [address] [place], [place] [address]Bjbcvz [Moles/Vol]135 mmol/GAklzql391-182RsrTomgkt [facility]remont HospitalComment on above:Performed By: #### ELEC, 3094-0, VALUE ANALYSIS COORDINATOR, 27704-4 #### [facility] ([id number]) [address] [place] [address] 87386 #### 05829-9, HA1C #### [facility] ([id number]) [address], [address] [place], [place] [address]RMJGW UREA NITROGENon 68-72-4666Jhml nitrogen [Mass/Vol]50 mg/dL High5-27ProTexas Orthopedic HospitalComment on above:Performed By: #### UA #### [facility] ([id number]) [address] [place] [address] 32295CVTIYJWcp 06-23-7276Desuukg [Mass/Vol]8.7 mg/dLNormal8.5-10.5 [facility] Medical CenterComment on above:Performed By: #### MATTY CBCA, 1987-08, 83480-7 #### [facility] ([id number]) [address] [place] [address] 52165 #### 87202-4 #### [facility] ([id number]) [address] [facility], [address] [place], [place] [address]ZUO AND AUTO DIFFon 46-30-2900PODQVHCT BASOPHIL0.1 X10E9/LNormal 0.0-0.2ProMedKaiser Foundation HospitalComment on above:Performed By: #### MATTY, CBCA, 1987-08, 10011-6 #### [facility] ([id number]) [address] [place] [address] 67285 #### 24982-8 #### [facility] ([id number]) [address] [facility], [address] [place], [place] [address]KGIYFSOJ NEUTROPHIL6.0 X10E9/LNormal1.5-6.6ProTexas Orthopedic HospitalComment on above:Performed By: #### MATTY CBCA, 1987-08, #### [facility] ([id number]) [address] [place] [address] 55107 #### 22166-8 #### [facility] ([id number]) [address], [address] [place], [place] [address]Hxlxdrexc/100 WBC (Bld)0.6 %NormalKettering Health – Soin Medical Center Comment on above:Performed By: #### MATTY CBCA, 1987-08, #### [facility] ([id number]) [address] [place] [address] 65472 #### 44660-2 #### [facility] ([id number]) [address] [address] [place], [place] [address]Aerihfwypqw (Bld) [#/Vol]0.3 10*3/uLNormal0.0-0.4[facility] Medical CenterComment on above:Performed By: #### MATTY CBCA, 1987-08, #### [facility] ([id number]) [address] [place] [address] 80048 #### 75797-3 #### [facility] ([id number]) [address] [facility] [facility] [place], [place] [address]Ozpctywqdcc/100 WBC (Bld)3.1 %[facility] Comment on above:Performed By: #### MATTY, CBCA, 1987-08, #### [facility] ([id number]) [address] [place] [address] 03484 #### 26446-4 #### [facility] ([id number]) [address], [address] [place], [place] [address]Arqebpfaoxn distribution width (RBC) [Ratio]13.5 %Normal 11.5-15.0ProTexas Orthopedic HospitalComment on above:Performed By: #### JAMES STARR, 1987-08, #### [facility] ([id number]) [address] [place] [address] 80741 #### 37177-2 #### [facility] ([id number]) [address], [address] [place], [place] [address]Qimshqtumy (Bld) [Volume fraction]36.1 %Ggq55-18BtsZvhvblTexas Orthopedic HospitalComment on above:Performed By: #### JAMES STARR, 1987-08, #### [facility] ([id number]) [address] [place] [address] 49483 #### 58474-9 #### [facility] ([id number]) [address], [address] [place], [place] [address]Eqymfftzxy (Bld) [Mass/Vol]11.8 g/dLLow13.0-17.0[facility] So[facility] Medical CenterComment on above:Performed By: #### JAMES STARR, 1987-08, #### [facility] ([id number]) [address] [place] [address] 80336 #### 74254-4 #### [facility] ([id number]) [address], [address] [place], [place] [address]Fhvgmoyfibp (Bld) [#/Vol]2.0 10*3/uLNormal1.0-3.5PLima City HospitalComment on above:Performed By: #### JAMES STARR, 1987-08, 47238-7 #### [facility] ([id number]) [address] [place] [address] 44203 #### 69362-9 #### [facility] ([id number]) [address], [address] [place], [place] [address]Ahfjipfhvid/100 WBC (Bld)20.7 %NormalKettering Health – Soin Medical Center Comment on above:Performed By: #### JAMES STARR, 1987-08, 39891-7 #### [facility] ([id number]) [address] [place] [address] 30651 #### 51840-6 #### [facility] ([id number]) [address] [facility] [place], [place] [address]VDR (RBC) [Entitic mass]29.1 hiWyfntb52-44JoqKmjuctTexas Orthopedic HospitalComment on above:Performed By: #### JAMES STARR, 1987-08, #### [facility] ([id number]) [address] [place] [address] 20320 #### 18326-9 #### [facility] ([id number]) [address] [facility] [facility] [place], [place] [address]LRSP (RBC) [Mass/Vol]32.8 g/kCEudyaf84-13WssFxtmuhTexas Orthopedic HospitalComment on above:Performed By: #### JAMES STARR, 1987-08, #### [facility] ([id number]) [address] [place] [address] 16232 #### 24830-4 #### [facility] ([id number]) [address] [facility] [facility] [place], [place] [address]OZU (RBC) [Entitic vol]89 pTLmymhb22-067XxzWwmrmn [facility]remont HospitalComment on above:Performed By: #### JAMES STARR, 1987-08, #### [facility] ([id number]) [address] [place] [address] 07989 #### 54852-9 #### [facility] ([id number]) [address] [facility] [place], [place] [address]Rbvbjpsnv (Bld) [#/Vol]1.2 10*3/uLHigh0-0.9ProTexas Orthopedic HospitalComment on above:Performed By: #### MATTY CBCA, 1987-08, #### [facility] ([id number]) [address] [place] [address] 39666 #### 44038-7 #### [facility] ([id number]) [address] [facility], [address] [place], [place] [address]Tjugleqgr/100 WBC (Bld)12.3 %NormalKettering Health – Soin Medical Center Comment on above:Performed By: #### MATTY CBCA, 1987-08, #### [facility] ([id number]) [address] [place] [address] 80349 #### 59320-1 #### [facility] ([id number]) [address] [facility], [address] [place], [place] [address]Kodxxdlatww/100 WBC (Bld)63.3 %NormalKettering Health – Soin Medical Center Comment on above:Performed By: #### MATTY CBCA, 1987-08, #### [facility] ([id number]) [address] [place] [address] 51913 #### 98189-0 #### [facility] ([id number]) [address] [facility], [address] [place], [place] [address]Eirjwpdc mean volume (Bld) [Entitic vol]7.7 fLNormal7-12 [facility] Medical CenterComment on above:Performed By: #### MATTY CBCA, 1987-08, #### [facility] ([id number]) [address] [place] [address] 92847 #### 93764-8 #### [facility] ([id number]) [address] [facility], [address] [place], [place] [address]Qdglcaxwk (Bld) [#/Vol]264 10*3/zTUfmvpl271-428LuvHwtqhw [facility]ont HospitalComment on above:Performed By: #### JAMES STARR, 1987-08, 15883-4 #### [facility] ([id number]) [address] [place] [address] 67348 #### 04796-7 #### [facility] ([id number]) [address] [place] [address], [address] [place], [place] [address]MFH COUNT4.07 X10E12/LLow4.10-5.70[facility] Comment on above:Performed By: #### JAMES STARR, 1987-08, 81444-9 #### [facility] ([id number]) [address] [place] [address] 09347 #### 76938-5 #### [facility] ([id number]) [address] [facility], [address] [place], [place] [address]HLT (Bld) [#/Vol]9.4 10*3/uLNormal4.0-11.0ProTexas Orthopedic HospitalComment on above:Performed By: #### JAMES STARR, 1987-08, 91612-4 #### [facility] ([id number]) [address] [place] [address] 34002 #### 53108-4 #### [facility] ([id number]) [address] [place] [address], [address] [place], [place] [address]OWLOKPIERCig 35-07-6629Ckjnfhgteb [Mass/Vol]3.14 mg/dLHigh 0.70-1.20ProTexas Orthopedic HospitalComment on above:Result Comment: METHOD TRACEABLE TO IDMS STANDARDPerformed By: #### UA #### [facility] ([id number]) [address] [place] [address] 26803ESK/1.73 sq M.predicted among non-blacks MDRD (S/P/Bld) [Vol rate/Area]21 mL/min/{1.73_m2}Low>59ProTexas Orthopedic HospitalComment on above: Result Comment: Reported eGFR is based on the CKD-EPI 2020 equation that does not use a race coefficient.Performed By: #### UA #### [facility] ([id number]) [address] [place] [address], [place] [address]MRQYPHGIMUYXdo 52-93-3999Awnqn gap [Moles/Vol]8 mmol/LNormal 5-15ProTexas Orthopedic HospitalComment on above:Performed By: #### UA #### [facility] ([id number]) [address] [place] [address], [place] [address]Lyibymjn [Moles/Vol]104 mmol/KCxuuxm70-011RlpFguvfgTexas Orthopedic HospitalComment on above:Performed By: #### UA #### [facility] ([id number]) [address] [place] [address], [place] [address] [Moles/Vol]19 mmol/IQjz85-59DasPgjnxoLima City Hospital Comment on above:Performed By: #### UA #### [facility] ([id number]) [address] [place] [address]Ybwdidvmi [Moles/Vol]4.9 mmol/LNormal3.5-5.0[facility] So[facility] Medical CenterComment on above:Performed By: #### UA #### [facility] ([id number]) [address] [place] [address], [place] [address]Suegcy [Moles/Vol]131 mmol/QTzs807-275JgxQxocsxTexas Orthopedic HospitalComment on above:Performed By: #### UA #### [facility] ([id number]) [address] [place] [address] 10847RYK Photometric method (Bld) [Velocity]on 05-40-2478HEE, ERYTHROCYTE SEDIMENTATION RATE98 mm/hHigh0-20[facility] So[facility] Medical CenterComment on above:Performed By: #### UA #### [facility] ([id number]) [address] [place] [address] 53589JZV A1C (GLYCO-HGB)on 51-24-8504Jwytnvz [Mass/Vol]289 mg/dL NormalProTexas Orthopedic HospitalComment on above:Performed By: #### UA #### [facility] ([id number]) [address] [place] [address] 24244HlZ6d (Bld) [Mass fraction]11.7 %High4.4-5.6K[facility] Soin Medical CenterComment on above:Result Comment: NOTE ADA Guidelines Result HgbA1c Normal : less than 5.7 % Prediabetes : 5.7 % to 6.4 % Diabetes : > 6.4 % Use with caution in patients with abnormal hemoglobin variants as the half-life of red blood cells and in vivo glycation rates are affected.Performed By: #### UA #### [facility] ([id number]) [address] [place] [address] 715[address]FTZXW PANELon 07-26-3856Nultipk [Mass/Vol]2.9 g/dLLow3.2-5.3 ProMTorrance Memorial Medical CenterComment on above:Performed By: #### UA #### [facility] ([id number]) [address] [place] [address] 19592AUK [Catalytic activity/Vol]79 U/BQqubmz99-916LknAedbdmKettering Health – Soin Medical CenterComment on above:Performed By: #### UA #### [facility] ([id number]) [address] [place] [address] 98856KEM [Catalytic activity/Vol]26 U/LNormal0-40ProTexas Orthopedic HospitalComment on above:Performed By: #### UA #### [facility] ([id number]) [address] [place] [address] 68139GRP [Catalytic activity/Vol]19 U/LNormal0-41ProTexas Orthopedic HospitalComment on above:Performed By: #### UA #### [facility] ([id number]) [address] [place] [address] 80763Tjjxqwplm [Mass/Vol]0.5 mg/dLNormal0.3-1.2ProMedKaiser Foundation HospitalComment on above:Performed By: #### UA #### [facility] ([id number]) [address] [place] [address] 550[address]Pbrruvlyb.indirect [Mass/Vol]mg/dLNormal0.0-0.4ProTexas Orthopedic HospitalComment on above:Performed By: #### UA #### [facility] ([id number]) [address] [place] [address] 78969Znarlji [Mass/Vol]6.9 g/dLNormal6.0-8.0ProTexas Orthopedic HospitalComment on above:Performed By: #### UA #### [facility] ([id number]) [address] [place] [address]7591Kxvhi 1996 panelon 95-29-0494Lzgxqghebzf [Mass/Vol]136 mg/dLLow 150-200ProTexas Orthopedic HospitalComment on above:Performed By: #### UA #### [facility] ([id number]) [address] [place] [address] 36857Moaklakaqzk in HDL [Mass/Vol]40 mg/dLNormal>39[facility] CenterComment on above:Result Comment: HDL <40 mg/dL - High Risk HDL > or = 40mg/dL- Desirable HDL >60 mg/dL - Negative Risk Performed By: #### UA #### [facility] ([id number]) [address] [place] [address], [place] [address]Ttpbsnqftlg in LDL [Mass/Vol]62 mg/dLNormal<130ProTexas Orthopedic HospitalComment on above:Result Comment: LDL <100 mg/dL - Desirable LDL >160 mg/dL - High Risk Performed By: #### UA #### [facility] ([id number]) [address] [place] [address] 07968Vfuadefoqqe in VLDL [Mass/Vol]34 mg/dLHigh0-30ProTexas Orthopedic HospitalComment on above:Performed By: #### UA #### [facility] ([id number]) [address] [place] [address] 44784VWUWYLUXRCF:HDL3.8Duvqgu3.0-5.0[facility] Comment on above:Performed By: #### UA #### [facility] ([id number]) [address] [place] [address] 98425Ddkfpnqcxlmt [Mass/Vol]172 mg/aGXehe43-295WfzHbvijyTexas Orthopedic HospitalComment on above:Performed By: #### UA #### [facility] ([id number]) [address] [place] [address] 21677Fxbrrraepdm peptide B [Mass/Vol]on 83-67-2961Eefqubqdzxe peptide B (Bld) [Mass/Vol]88 pg/mLNormal<100.0ProTexas Orthopedic HospitalComment on above:Performed By: #### UA #### [facility] ([id number]) [address] [place] [address], [place] [address]Xqawikr D+Metabolites [Mass/Vol]on 99-26-0936DWDXTYA D 25 HYD TOT15.1 ng/aHNpi82-058QoqYwrhfpTexas Orthopedic HospitalComment on above:Result Comment: Vitamin D status 25 [place] Vitamin D Deficiency <20 ng/mL Insufficiency 20-29 ng/mL Sufficiency 30-100 ng/mL Toxicity >100 ng/mL NOTE: A pediatric reference range has not been established by the [employer] maker of this kit. The [employer] recommends a Vitamin D level of = or >20ng/mL in infants and children.Performed By: #### UA #### [facility] ([id number]) [address] [place] [address] 46725VQREL UREA NITROGENon 00-94-1579Pdwl nitrogen [Mass/Vol]50 mg/dLHigh5-27ProTexas Orthopedic HospitalComment on above:Performed By: #### MATTY CBCA, 1987-08, 03372-6 #### [facility] ([id number]) [address] [place] [address] #### 81216-7 #### [facility] ([id number]) [address] [place], [place] [address]ANJ AND AUTO DIFFon 18-90-1136VDLAEXOX BASOPHIL0.0 X10E9/LNormal 0.0-0.2[facility] Francis Medical CenterComment on above:Performed By: #### MATTY, CBCA, 1987-08, 57183-7 #### [facility] ([id number]) [address] [place] [address] #### 43420-1 #### [facility] ([id number]) [address] [place], [place] [address]HZJBMNLN NEUTROPHIL5.7 X10E9/LNormal1.5-6.6ProSt. Vincent Hospital HospitalComment on above:Performed By: #### MATTY, CBCA, 1987-08, 02757-8 #### [facility] ([id number]) [address] [place] [address]35 #### 18179-1 #### [facility] ([id number]) [address], [address] [place], [place] [address]Tdejdwted/100 WBC (Bld)0.4 %[facility] Comment on above:Performed By: #### MATTY CBCA, 1987-08, 67688-1 #### [facility] ([id number]) [address] [place] [address]4489 #### 65382-9 #### [facility] ([id number]) [address], [address] [place], [place] [address]Efieankyhbx (Bld) [#/Vol]0.4 10*3/uLNormal0.0-0.4K[facility]tering [facility] Soin Medical CenterComment on above:Performed By: #### JAMES STARR, 1987-08, 57907-2 #### [facility] ([id number]) [address] [place] [address] 90840 #### 66509-2 #### [facility] ([id number]) [address] [place], [place] [address]Ttwjccvaiql/100 WBC (Bld)4.8 %[facility] Comment on above:Performed By: #### MATTY CBCA, 1987-08, 30039-5 #### [facility] ([id number]) [address] [place] [address] 40683 #### 77733-8 #### [facility] ([id number]) [address], [address] [place], [place] [address]Lwrwmphbweu distribution width (RBC) [Ratio]14.7 %Normal 11.5-15.0[facility] Soin Medical CenterComment on above:Performed By: #### JAMES STARR, 1987-08, 89819-0 #### [facility] ([id number]) [address] [place] [address] 78240 #### 62504-0 #### [facility] ([id number]) [address] [facility] [place], [place] [address]Nymludqhjq (Bld) [Volume fraction]39.0 %Enkdtk27-08CfjWggimvTexas Orthopedic HospitalComment on above:Performed By: #### JAMES STARR, 1987-08, #### [facility] ([id number]) [address] [place] [address] 46532 #### 98491-5 #### [facility] ([id number]) [address] [facility] [place], [place] [address]Zufixsbysh (Bld) [Mass/Vol]13.3 g/mOHxfezi22.0-17.0ProTexas Orthopedic HospitalComment on above:Performed By: #### JAMES STARR, 1987-08, 91069-9 #### [facility] ([id number]) [address] [place] [address] 05105 #### 50469-1 #### [facility] ([id number]) [address] [facility] [place], [place] [address]Qxdeglscacp (Bld) [#/Vol]1.7 10*3/uLNormal1.0-3.5PLima City HospitalComment on above:Performed By: #### JAMES STARR, 1987-08, 89059-1 #### [facility] ([id number]) [address] [place] [address] 40742 #### 30581-5 #### [facility] ([id number]) [address] [facility] [place], [place] [address]Bbuuuhgrhzk/100 WBC (Bld)19.3 %NormalKettering Health – Soin Medical Center Comment on above:Performed By: #### JAMES STARR, 1987-08, 95152-8 #### [facility] ([id number]) [address] [place] [address] 82710 #### 49166-8 #### [facility] ([id number]) [address] [facility] [place], [place] [address]VWZ (RBC) [Entitic mass]29.8 joPunssb53-04QhsYsbrjoTexas Orthopedic HospitalComment on above:Performed By: #### JAMES STARR, 1987-08, #### [facility] ([id number]) [address] [place] [address] 35878 #### 37695-8 #### [facility] ([id number]) [address] [facility] [place], [place] [address]VWIQ (RBC) [Mass/Vol]34.0 g/tWHlxtej66-89IddNxklvkTexas Orthopedic HospitalComment on above:Performed By: #### JAMES STARR, 1987-08, #### [facility] ([id number]) [address] [place] [address] 36868 #### 05389-5 #### [facility] ([id number]) [address] [facility], [address] [place], [place] [address]YFG (RBC) [Entitic vol]88 dHPkbemp97-001SpqKcoqng Fremont HospitalComment on above:Performed By: #### JAMES STARR, 1987-08, #### [facility] ([id number]) [address] [place] [address] 83250 #### 51771-5 #### [facility] ([id number]) [address], [address] [place], [place] [address]Hovfytccm (Bld) [#/Vol]0.8 10*3/uLNormal0-0.9ProTexas Orthopedic HospitalComment on above:Performed By: #### MATTY, CBCA, 1987-08, #### [facility] ([id number]) [address] [place] [address] 64871 #### 92214-9 #### [facility] ([id number]) [address] [facility], [address] [place], [place] [address]Zpsfrnxfl/100 WBC (Bld)8.8 %[facility] Comment on above:Performed By: #### SEVEN STARRA, 1987-08, #### [facility] ([id number]) [address] [place] [address] 61519 #### 61041-3 #### [facility] ([id number]) [address] [facility], [address] [place], [place] [address]Jxjrscnffta/100 WBC (Bld)66.7 %[facility] Comment on above:Performed By: #### MATTY CBCA, 1987-08, 21276-9 #### [facility] ([id number]) [address] [place] [address] 95339 #### 37355-2 #### [facility] ([id number]) [address] [facility], [address] [place], [place] [address]Zrsuowtw mean volume (Bld) [Entitic vol]7.7 fLNormal7-12 [facility] CenterComment on above:Performed By: #### MATTY, CBCA, 1987-08, #### [facility] ([id number]) [address] [place] [address] 84543 #### 53007-6 #### [facility] ([id number]) [address] [facility], [address] [place], [place] [address]Twjylbedz (Bld) [#/Vol]286 10*3/qALpteio487-234NhfWkvrhd Fremont HospitalComment on above:Performed By: #### JAMES STARR, 1987-08, 65847-4 #### [facility] ([id number]) [address] [place] [address] 58534 #### 15323-6 #### [facility] ([id number]) [address] [facility], [address] [place], [place] [address]KLB COUNT4.46 X10E12/LNormal4.10-5.70[facility] Comment on above:Performed By: #### JAMES STARR, 1987-08, 95843-2 #### [facility] ([id number]) [address] [place] [address] 94661 #### 35137-9 #### [facility] ([id number]) [address] [place] [address], [address] [place], [place] [address]PNU (Bld) [#/Vol]8.6 10*3/uLNormal4.0-11.0ProTexas Orthopedic HospitalComment on above:Performed By: #### JMAES STARR, 1987-08, 21263-8 #### [facility] ([id number]) [address] [place] [address] 54068 #### 75600-5 #### [facility] ([id number]) [address] [facility], [address] [place], [place] [address]HKCLFHWAWGrt 61-62-1477Gawpeglgzr [Mass/Vol]3.32 mg/dLHigh 0.70-1.20ProTexas Orthopedic HospitalComment on above:Result Comment: METHOD TRACEABLE TO IDMS STANDARDPerformed By: #### JAEMS STARR, 1987-08, 82737-5 #### [facility] ([id number]) [address] [place] [address] 86284 #### 00459-1 #### [facility] ([id number]) [address] [facility], [address] [place], [place] [address]BQZ/1.73 sq M.predicted among non-blacks MDRD (S/P/Bld) [Vol rate/Area]20 mL/min/{1.73_m2}Low>59ProTexas Orthopedic HospitalComment on above: Result Comment: Reported eGFR is based on the CKD-EPI 2020 equation that does not use a race coefficient.Performed By: #### JAMES STARR, 1987-08, 65300-2 #### [facility] ([id number]) [address] [place] [address] 20722 #### 97586-3 #### [facility] ([id number]) [address] [facility], [address] [place], [place] [address]WZBUXNJKWWENpk 71-94-9080Mcilq gap [Moles/Vol]8 mmol/LNormal5-15 [facility] CenterComment on above:Performed By: #### JAMES STARR, 1987-08, 51645-1 #### [facility] ([id number]) [address] [place] [address] 10701 #### 58589-6 #### [facility] ([id number]) [address] [facility], [address] [place], [place] [address]Xzceeqfd [Moles/Vol]103 mmol/JXpdtmc91-255YpyBammbcTexas Orthopedic HospitalComment on above:Performed By: #### JAMES STARR, 1987-08, 68492-5 #### [facility] ([id number]) [address] [place] [address] 63060 #### 26315-4 #### [facility] ([id number]) [address], [address] [place], [place] [address]CH0 [Moles/Vol]18 mmol/FIjv76-27GnuAchsljLima City Hospital Comment on above:Performed By: #### JAMES STARR, 1987-08, 90555-9 #### [facility] ([id number]) [address] [place] [address] 05473 #### 94989-9 #### [facility] ([id number]) [address], [address] [place], [place] [address]Zmzxwqsrp [Moles/Vol]4.5 mmol/LNormal3.5-5.0ProTexas Orthopedic HospitalComment on above:Performed By: #### JAMES STARR, 1987-08, 24849-2 #### [facility] ([id number]) [address] [place] [address] 33343 #### 66273-0 #### [facility] ([id number]) [address], [address] [place], [place] [address]Lwycrm [Moles/Vol]129 mmol/FQmm059-564JbvNvfagdKettering Health – Soin Medical Center Comment on above:Performed By: #### JAMES STARR, 1987-08, 80352-8 #### [facility] ([id number]) [address] [place] [address] 64084 #### 58767-7 #### [facility] ([id number]) [address], [address] [place], [place] [address]QCLNR UREA NITROGENon 96-08-6358Laks nitrogen [Mass/Vol]41 mg/dL High5-27ProCentervilleComment on above:Performed By: #### JAMES, 3094- 0, VALUE ANALYSIS COORDINATOR, ELEC #### [facility] ([id number]) [address], [address] [place], [place] [address]TDC AND AUTO DIFFon 91-94-6865EXWLQEGY BASOPHIL0.2 X10E9/LNormal 0.0-0.2PProMedica Toledo HospitalComment on above:Performed By: #### JAMES 3094- 0, VALUE ANALYSIS COORDINATOR, ELEC #### [facility] ([id number]) [address], [address] [place], [place] [address]Xmrnyepqj/100 WBC (Bld)1.9 %NormalMain Campus Medical Center Comment on above:Performed By: #### JAMES 309-0, VALUE ANALYSIS COORDINATOR, ELEC #### [facility] ([id number]) [address], [address] [place], [place] [address]COTX3+AbnormalNONEPProMedica Toledo HospitalComment on above: Performed By: #### JAMES 309-0, VALUE ANALYSIS COORDINATOR, ELEC #### [facility] ([id number]) [address], [address] [place], [place] [address]Rvbeiefnoel (Bld) [#/Vol]0.4 10*3/uLNormal0.0-0.4ProCentervilleComment on above:Performed By: #### JAMES 309-0, VALUE ANALYSIS COORDINATOR, ELEC #### [facility] ([id number]) [address], [address] [place], [place] [address]Nwpdadjzjjg/100 WBC (Bld)3.8 %NormalMain Campus Medical Center Comment on above:Performed By: #### JAMES 309-0, VALUE ANALYSIS COORDINATOR, ELEC #### [facility] ([id number]) [address], [address] [place], [place] [address]Whjpndkurgk distribution width (RBC) [Ratio]14.4 %Normal 11.5-15.0ProCentervilleComment on above:Performed By: #### JAMES, 3094-0, VALUE ANALYSIS COORDINATOR, ELEC #### [facility] ([id number]) [address], [address] [place], [place] [address]Zuvbbifeqs (Bld) [Volume fraction]40.3 %Xiqvyt94-77IltFkgvdr Ewa Beach HospitalComment on above:Performed By: #### CBCA, 3094-0, VALUE ANALYSIS COORDINATOR, ELEC #### [facility] ([id number]) [address], [address] [place], [place] [address]Tlnrftdtxg (Bld) [Mass/Vol]13.4 g/cJGqghag13.0-17.0ProHarrison Community Hospitalca [place] Beach HospitalComment on above:Performed By: #### CBCA, 3094-0, VALUE ANALYSIS COORDINATOR, ELEC #### [facility] ([id number]) [address], [facility] [address] [place], [place] [address]Pjgfudcosam (Bld) [#/Vol]2.0 10*3/uLNormal1.0-3.5[facility] Beach HospitalComment on above:Performed By: #### CBCA, 3094-0, VALUE ANALYSIS COORDINATOR, ELEC #### [facility] ([id number]) [address], [address] [place], [place] [address]Pxvujeliiyb/100 WBC (Bld)21.7 %NormalProChillicothe Hospital Hospital Comment on above:Performed By: #### CBCA, 3094-0, VALUE ANALYSIS COORDINATOR, ELEC #### [facility] ([id number]) [address], [facility] [address] [place], [place] [address]NKQ (RBC) [Entitic mass]29.6 qkWddcpo76-21QwiMchfhk [place] HospitalComment on above:Performed By: #### CBCA, 3094-0, VALUE ANALYSIS COORDINATOR, ELEC #### [facility] ([id number]) [address], [address] [place], [place] [address]MHEM (RBC) [Mass/Vol]33.4 g/oQGfkoaj10-39NlkKgzqje [place] HospitalComment on above:Performed By: #### CBCA, 3094-0, VALUE ANALYSIS COORDINATOR, ELEC #### [facility] ([id number]) [address], [address] [place], [place] [address]PYW (RBC) [Entitic vol]89 nHNmbsyx73-638QljRhnrgn [facility] HospitalComment on above:Performed By: #### JAMES, 3094-0, VALUE ANALYSIS COORDINATOR, ELEC #### [facility] ([id number]) [address], [address] [place], [place] [address]Mjcsirpnk (Bld) [#/Vol]0.6 10*3/uLNormal0-0.9[facility]ica [facility] Beach HospitalComment on above:Performed By: #### JAMES, 3094-0, VALUE ANALYSIS COORDINATOR, ELEC #### [facility] ([id number]) [address], [address] [place], [place] [address]Ginjphzwn/100 WBC (Bld)6.6 %NormalProChillicothe Hospital Hospital Comment on above:Performed By: #### JAMES, 3094-0, VALUE ANALYSIS COORDINATOR, ELEC #### [facility] ([id number]) [address], [address] [place], [place] [address]Suxpvosrsyg (Bld) [#/Vol]6.1 10*3/uLNormal1.5-6.6ProHarrison Community Hospitalca [place] HospitalComment on above:Performed By: #### JAMES, 3094-0, VALUE ANALYSIS COORDINATOR, ELEC #### [facility] ([id number]) [address], [address] [place], [place] [address]Remlhwof mean volume (Bld) [Entitic vol]8.0 fLNormal7-12 [facility] HospitalComment on above:Performed By: #### CBCJarrett, 3094-0, VALUE ANALYSIS COORDINATOR, ELEC #### [facility] ([id number]) [address], [address] [place], [place] [address]Wylgfkpix (Bld) [#/Vol]253 10*3/aJAlgulu800-778TosHkhoii [facility] HospitalComment on above:Performed By: #### CBCJarrett, 3094-0, VALUE ANALYSIS COORDINATOR, ELEC #### [facility] ([id number]) [address] [address] [place] [address]GLG COUNT4.54 X10E12/LNormal4.10-5.70[facility] Comment on above:Performed By: #### JAMES, 3094-0, VALUE ANALYSIS COORDINATOR, ELEC #### [facility] ([id number]) [address] [address]WJE KTUFTWCKUX68.0 %NormalProChillicothe Hospital HospitalComment on above:Performed By: #### JAMES, 3094-0, VALUE ANALYSIS COORDINATOR, ELEC #### [facility] ([id number]) [address] [address]GKV (Bld) [#/Vol]9.3 10*3/uLNormal4.0-11.0ProCentervilleComment on above:Performed By: #### JAMES, 3094-0, VALUE ANALYSIS COORDINATOR, ELEC #### [facility] ([id number]) [address] [address]NNMMWZLCNFjw 11-86-3446Lyuuawskao [Mass/Vol]3.18 mg/dLHigh 0.60-1.30[facility] Medical CenterComment on above:Result Comment: METHOD TRACEABLE TO IDMS STANDARDPerformed By: #### JAMES, 3094-0, VALUE ANALYSIS COORDINATOR, ELEC #### [facility] ([id number]) [address] [address]LSE/1.73 sq M.predicted among non-blacks MDRD (S/P/Bld) [Vol rate/Area]21 mL/min/{1.73_m2}Low>59ProCentervilleComment on above: Result Comment: Reported eGFR is based on the CKD-EPI 2020 equation that does not use a race coefficient.Performed By: #### JAMES, 3094-0, VALUE ANALYSIS COORDINATOR, ELEC #### [facility] ([id number]) [address] [address] [place], [place] [address]MOHIVTRTUFUPgb 06-27-8484Jbagi gap [Moles/Vol]9 mmol/LNormal5-15 [facility] HospitalComment on above:Performed By: #### JAMES, 3094-0, VALUE ANALYSIS COORDINATOR, ELEC #### [facility] ([id number]) [address], [address] [place], [place] [address]Fgukkmqt [Moles/Vol]100 mmol/DYvawkj81-195RvaCbvyvc [facility] HospitalComment on above:Performed By: #### JAMES, 3094-0, VALUE ANALYSIS COORDINATOR, ELEC #### [facility] ([id number]) [address], [address] [place], [place] [address]CE3 [Moles/Vol]22 mmol/SGwvrhb10-94OsaIdfnqn [facility] Comment on above:Performed By: #### JAMES, 3094-0, VALUE ANALYSIS COORDINATOR, ELEC #### [facility] ([id number]) [address], [address] [place], [place] [address]Libokljhk [Moles/Vol]3.9 mmol/LNormal3.5-5.0ProCentervilleComment on above:Performed By: #### JAMES, 3094-0, VALUE ANALYSIS COORDINATOR, ELEC #### [facility] ([id number]) [address], [address] [place], [place] [address]Wkmhwi [Moles/Vol]131 mmol/ZWro305-672SwiOxwnbtCenterville Comment on above:Performed By: #### JAMES, 3094-0, VALUE ANALYSIS COORDINATOR, ELEC #### [facility] ([id number]) [address], [address] [place], [place] [address]NT VENOUS DOPPLER LE LTon 03-91-[address] [address] Ultrasound Report Signed Patient: RASHARD LYMAN MR#: [id number] : 1960 Acct:[id number] Age/Sex: 63 / M ADM Date: 11/19/23 Loc: US Attending Dr: Ajay Archer M.D. Ordering Physician: Ajay Archer M.D. Date of Service: 11/19/23 Procedure(s): US venous doppler LE LT Accession Number(s): [id number] cc: Chino Elliott D.P.M.; Ajay Archer M.D. The [place] [id number] Patient Name: RASHARD LYMAN MRN: [id number] date: 1960 Sex: M Assigned Patient Location: US Current Patient Location: US Accession/Order Number: [id number] Exam Date: 11/19/2023 16:06 Report Date: 11/19/2023 [...] M.D. Signed By: 11/19/231726 DD/ 23 TD/TT: Solar Development Engineer:PEPEadiology, Radiologist, - 11/19/[address] [address] Ultrasound Report Signed Patient: RASHARD LYMAN MR#: [id number] : 1960 Acct:[id number] Age/Sex: 63 / M ADM Date: 11/19/23 Loc: US Attending Dr: Ajay Archer M.D. Ordering Physician: Ajay Archer M.D. Date of Service: 11/19/23 Procedure(s): US venous doppler LE LT Accession Number(s): [id number] cc: Chino Elliott D.P.M.; Ajay Archer M.D. [place] [id number] Patient Name: RASHARD LYMAN MRN: [id number] date: 1960 Sex: M Assigned Patient Location: US Current Patient Location: US Accession/Order Number: [id number] Exam Date: 11/19/2023 16:06 Report Date: 11/19/2023 [...] M.D. Signed By: 11/19/231726 DD/ 23 TD/TT: Solar Development Engineer: HERNANDEZ HealthcareRadiology Study observation (narrative)[facility] VENOUS DOPPLER LE LTOrdered By: Radiologist Radiology on 77-06-1006[address]RN[address] [place] [address] Work Phone: bLOOD UREA NITROGENon 45-30-1056Qpbi nitrogen [Mass/Vol]35 mg/dLHigh5-27ProTexas Orthopedic HospitalComment on above:Performed By: #### JAMES STARR, 1987-08, 37323-5 #### [facility] ([id number]) [address] [place] [address] 18648 #### 58380-0 #### [facility] ([id number]) [address], [address] [place], [place] [address]GIRHRARpy 33-28-1225Xwpaopa [Mass/Vol]8.1 mg/dLLow8.5-10.5 ProMTorrance Memorial Medical CenterComment on above:Performed By: #### JAMES STARR, 1987-08, 54823-1 #### [facility] ([id number]) [address] [place] [address] 22025 #### 19233-6 #### [facility] ([id number]) [address] [facility] [place], [place] [address]LYO AND AUTO DIFFon 09-01-7505WVONDICW BASOPHIL0.0 X10E9/LNormal 0.0-0.2[facility] Medical CenterComment on above:Performed By: #### JAMES STARR, 1987-08, 72377-5 #### [facility] ([id number]) [address] [place] [address] 799[address] #### 78307-4 #### [facility] ([id number]) [address] [facility] [place], [place] [address]ACDLBYCD NEUTROPHIL5.4 X10E9/LNormal1.5-6.6ProTexas Orthopedic HospitalComment on above:Performed By: #### JAMES STARR, 1987-08, 12729-0 #### [facility] ([id number]) [address] [place] [address] [place] [address] #### 23586-8 #### [facility] ([id number]) [facility] [facility], [address] [place], [place] [address]Tlbpfdbtt/100 WBC (Bld)0.5 %[facility] Comment on above:Performed By: #### JAMES STARR, 1987-08, 80249-7 #### [facility] ([id number]) [address] [place] [address] #### 46830-2 #### [facility] ([id number]) [address] [place] [address], [address] [place], [place] [address]Bhwiotqbqkz (Bld) [#/Vol]0.3 10*3/uLNormal0.0-0.4ProTexas Orthopedic HospitalComment on above:Performed By: #### JAMES STARR, 1987-08, 46495-8 #### [facility] ([id number]) [address] [place] [address]6512 #### 83449-7 #### [facility] ([id number]) [address] [place] [address], [address] [place], [place] [address]Vwfhpmsqvxm/100 WBC (Bld)3.2 %NormalKettering Health – [facility] Comment on above:Performed By: #### JAMES STARR, 1987-08, 26769-2 #### [facility] ([id number]) [address] [place] [address]2014 #### 87930-6 #### [facility] ([id number]) [address] [place] [address], [address] [place], [place] [address]Yxtjlpquppy distribution width (RBC) [Ratio]14.4 %Normal 11.5-15.0ProTexas Orthopedic HospitalComment on above:Performed By: #### JAMES STARR, 1987-08, 86811-6 #### [facility] ([id number]) [address] [place] [address]16 #### 39419-7 #### [facility] ([id number]) [address], [address] [place], [place] [address]Uwrdlhvhpc (Bld) [Volume fraction]39.7 %Ledvfl72-11QcsGeyvhlTexas Orthopedic HospitalComment on above:Performed By: #### MATTY CBCA, 1987-08, 78707-9 #### [facility] ([id number]) [address] [place] [address]52 #### 63129-0 #### [facility] ([id number]) [address], [address] [place], [place] [address]Vlbvowbudh (Bld) [Mass/Vol]13.1 g/iLBjnema60.0-17.0ProTexas Orthopedic HospitalComment on above:Performed By: #### MATTY, CBCA, 1987-08, 38042-5 #### [facility] ([id number]) [address] [place] [address]4928 #### 22550-9 #### [facility] ([id number]) [address], [address] [place], [place] [address]Fgzspxeaqpl (Bld) [#/Vol]2.1 10*3/uLNormal1.0-3.5ProMedica Saint Francis Medical CenterComment on above:Performed By: #### MATTY, CBCA, 1987-08, 84018-9 #### [facility] ([id number]) [address] [place] [address] 95362 #### 05967-2 #### [facility] ([id number]) [address], [address] [place], [place] [address]Oydksymmnwo/100 WBC (Bld)24.5 %NormalProTexas Orthopedic Hospital Comment on above:Performed By: #### MATTY, CBCA, 1987-08, #### [facility] ([id number]) [address] [place] [address] #### 57550-7 #### [facility] ([id number]) [address], [address] [place], [place] [address]QPG (RBC) [Entitic mass]29.0 dhDucooj46-21GhcRlbbolTexas Orthopedic HospitalComment on above:Performed By: #### MATTY, CBCA, 1987-08, #### [facility] ([id number]) [address] [place] [address]114 #### 46055-6 #### [facility] ([id number]) [address], [address] [place], [place] [address]QJHW (RBC) [Mass/Vol]32.9 g/lQAluzln56-63JnkOuqogrTexas Orthopedic HospitalComment on above:Performed By: #### JAMES STARR, 1987-08, #### [facility] ([id number]) [address] [place] [address] 22983 #### 54907-2 #### [facility] ([id number]) [address], [address] [place], [place] [address]XAV (RBC) [Entitic vol]88 nZZvbpax05-176ItsEmupru Fremont HospitalComment on above:Performed By: #### MATTY, CBCA, 1987-08, #### [facility] ([id number]) [address] [place] [address] #### 83281-5 #### [facility] ([id number]) [address], [address] [place], [place] [address]Wwciqjfhf (Bld) [#/Vol]0.8 10*3/uLNormal0-0.9ProBaptist Medical Center East Austin HospitalComment on above:Performed By: #### BMP, CBCA, 1987-08, 68482-2 #### [facility] ([id number]) [address] [place] [address] 58146 #### 46051-8 #### [facility] ([id number]) [address], [address] [place], [place] [address]Cezgopddj/100 WBC (Bld)9.2 %[facility] Comment on above:Performed By: #### MATTY, CBCA, 1987-08, 09063-1 #### [facility] ([id number]) [address] [place] [address] 28851 #### 33562-7 #### [facility] ([id number]) [address] [facility] [address] [place], [place] [address]Sxuqgtllyij/100 WBC (Bld)62.6 %[facility] Comment on above:Performed By: #### BMP, CBCA, 1987-08, 12240-6 #### [facility] ([id number]) [address] [place] [address] #### 31346-8 #### [facility] ([id number]) [address], [address] [place], [place] [address]Dueswlwk mean volume (Bld) [Entitic vol]8.6 fLNormal7-12 [facility] CenterComment on above:Performed By: #### BMP, CBCA, 1987-08, 00229-6 #### [facility] ([id number]) [address] [place] [address] 84433 #### 67680-5 #### [facility] ([id number]) [address], [address] [place], [place] [address]Kkderpuui (Bld) [#/Vol]247 10*3/rHAkkukx963-300IbgAonfwb [facility] HospitalComment on above:Performed By: #### JAMES STARR, 1987-08, 35181-0 #### [facility] ([id number]) [address] [place] [address] 53488 #### 63151-3 #### [facility] ([id number]) [address] [place] [address], [address] [place], [place] [address]ZRU COUNT4.51 X10E12/LNormal4.10-5.70[facility] Comment on above:Performed By: #### JAMES STARR, 1987-08, #### [facility] ([id number]) [address] [place] [address] 70442 #### 79567-2 #### [facility] ([id number]) [address] [place] [address], [address] [place], [place] [address]OZZ (Bld) [#/Vol]8.5 10*3/uLNormal4.0-11.0ProTexas Orthopedic HospitalComment on above:Performed By: #### JAMES STARR, 1987-08, 28577-8 #### [facility] ([id number]) [address] [place] [address] 72874 #### 63619-3 #### [facility] ([id number]) [address] [place] [address], [address] [place], [place] [address]QMZFCAJMMRaw 42-14-9758Ypvqfvivjs [Mass/Vol]2.69 mg/dLHigh 0.70-1.20ProTexas Orthopedic HospitalComment on above:Result Comment: METHOD TRACEABLE TO IDMS STANDARDPerformed By: #### JAMES STARR, 1987-08, 22839-1 #### [facility] ([id number]) [address] [place] [address] 70237 #### 08013-4 #### [facility] ([id number]) [address], [address] [place], [place] [address]VFW/1.73 sq M.predicted among non-blacks MDRD (S/P/Bld) [Vol rate/Area]26 mL/min/{1.73_m2}Low>59[facility] CenterComment on above: Result Comment: Reported eGFR is based on the CKD-EPI 2020 equation that does not use a race coefficient.Performed By: #### JAMES STARR, 1987-08, 66916-0 #### [facility] ([id number]) [address] [place] [address] 29712 #### 52295-8 #### [facility] ([id number]) [address], [address] [place], [place] [address]Psfvdeg.ionized (Bld) [Moles/Vol]on 71-16-9649RNLMKBLE ICA4.8 mg/dLNormal4.5-5.3[facility] CenterComment on above:Performed By: #### JAMES STARR, 1987-08, 70026-7 #### [facility] ([id number]) [address] [place] [address] 88813 #### 35742-6 #### [facility] ([id number]) [address], [address] [place], [place] [address]ANLGGKTIJNDIpt 40-59-4047Utlkz gap [Moles/Vol]5 mmol/LNormal5-15 [facility] CenterComment on above:Performed By: #### JAMES STARR, 1987-08, 85899-4 #### [facility] ([id number]) [address] [place] [address] 08820 #### 95178-4 #### [facility] ([id number]) [address], [address] [place], [place] [address]Oacpzhtv [Moles/Vol]108 mmol/ERqnqiq71-100DiqMqqjgfTexas Orthopedic HospitalComment on above:Performed By: #### JAMES STARR, 1987-08, 58767-2 #### [facility] ([id number]) [address] [place] [address] 60766 #### 73399-7 #### [facility] ([id number]) [address], [address] [place], [place] [address]CA7 [Moles/Vol]18 mmol/LQdz78-01NivQmdjwyLima City Hospital Comment on above:Performed By: #### JAMES STARR, 1987-08, 09398-8 #### [facility] ([id number]) [address] [place] [address] 53650 #### 08134-7 #### [facility] ([id number]) [address], [address] [place], [place] [address]Mziwxqmka [Moles/Vol]4.1 mmol/LNormal3.5-5.0ProTexas Orthopedic HospitalComment on above:Performed By: #### JAMES STARR, 1987-08, 82871-4 #### [facility] ([id number]) [address] [place] [address] 95932 #### 56429-6 #### [facility] ([id number]) [address], [address] [place], [place] [address]Fwedgh [Moles/Vol]131 mmol/CQss482-178NelTaldnrKettering Health [facility] Center Comment on above:Performed By: #### JAMES STARR, 1987-08, 53886-7 #### [facility] ([id number]) [address] [place] [address] 95293 #### 02843-2 #### [facility] ([id number]) [address], [address] [place], [place] [address]SSE Photometric method (Bld) [Velocity]on 78-86-3475GMO, ERYTHROCYTE SEDIMENTATION RATE89 mm/hHigh0-20ProTexas Orthopedic HospitalComment on above:Performed By: #### JAMES STARR, 1987-08, 72077-3 #### [facility] ([id number]) [address] [place] [address] 82916 #### 21299-1 #### [facility] ([id number]) [address], [address] [place], [place] [address]PBQ A1C (GLYCO-HGB)on 01-38-8930Rbimmbu [Mass/Vol]235 mg/dL NormalProTexas Orthopedic HospitalComment on above:Performed By: #### JAMES STARR, 1987-08, 53763-8 #### [facility] ([id number]) [address] [place] [address] 30984 #### 94706-6 #### [facility] ([id number]) [address], [address] [place], [place] [address]TaH6s (Bld) [Mass fraction]9.8 %High4.4-5.6ProTexas Orthopedic HospitalComment on above:Result Comment: NOTE ADA Guidelines Result HgbA1c Normal : less than 5.7 % Prediabetes : 5.7 % to 6.4 % Diabetes : > 6.4 % Use with caution in patients with abnormal hemoglobin variants as the half-life of red blood cells and in vivo glycation rates are affected.Performed By: #### JAMES STARR, 1987-08, 46984-9 #### [facility] ([id number]) [address] [place] [address] 45263 #### 62623-6 #### [facility] ([id number]) [address], [address] [place], [place] [address]CBKPS PANELon 68-79-6988Paxpluo [Mass/Vol]2.8 g/dLLow3.2-5.3 [facility] CenterComment on above:Performed By: #### JAMES STARR, 1987-08, 84923-0 #### [facility] ([id number]) [address] [place] [address] 59023 #### 38993-6 #### [facility] ([id number]) [address] [facility], [address] [place], [place] [address]VFP [Catalytic activity/Vol]86 U/DOgfydq14-302YetCxscopTexas Orthopedic HospitalComment on above:Performed By: #### JAMES STARR, 1987-08, 63202-3 #### [facility] ([id number]) [address] [place] [address] 45738 #### 44992-2 #### [facility] ([id number]) [address] [facility], [address] [place], [place] [address]VOE [Catalytic activity/Vol]19 U/LNormal0-40ProTexas Orthopedic HospitalComment on above:Performed By: #### JAMES STARR, 1987-08, 84355-0 #### [facility] ([id number]) [address] [place] [address] 12052 #### 63636-0 #### [facility] ([id number]) [address] [facility], [address] [place], [place] [address]JXB [Catalytic activity/Vol]15 U/LNormal0-41Pro[facility] Orthopedic HospitalComment on above:Performed By: #### JAMES STARR, 1987-08, 35227-1 #### [facility] ([id number]) [address] [place] [address] 75164 #### 91786-2 #### [facility] ([id number]) [address] [facility], [address] [place], [place] [address]Wqryozqwk [Mass/Vol]0.5 mg/dLNormal0.3-1.2ProMedKaiser Foundation HospitalComment on above:Performed By: #### JAMES STARR, 1987-08, 54550-3 #### [facility] ([id number]) [address] [place] [address] 81503 #### 94457-6 #### [facility] ([id number]) [address] [place] [address], [address] [place], [place] [address]Gdzyqcyii.indirect [Mass/Vol]mg/dLNormal0.0-0.4ProTexas Orthopedic HospitalComment on above:Performed By: #### JAMES STARR, 1987-08, 98901-5 #### [facility] ([id number]) [address] [place] [address] 59098 #### 20940-4 #### [facility] ([id number]) [address] [place] [address], [address] [place], [place] [address]Bqynudj [Mass/Vol]6.4 g/dLNormal6.0-8.0ProTexas Orthopedic HospitalComment on above:Performed By: #### JAMES STARR, 1987-08, 35513-6 #### [facility] ([id number]) [address] [place] [address] 82437 #### 70342-2 #### [facility] ([id number]) [address] [place] [address], [address] [place], [place] [address]Pwrip 1996 panelon 32-29-2711Ssiepcavjsz [Mass/Vol]135 mg/dLLow 150-200ProTexas Orthopedic HospitalComment on above:Performed By: #### JAMES STARR, 1987-08, 44698-3 #### [facility] ([id number]) [address] [place] [address] 60397 #### 12602-5 #### [facility] ([id number]) [address] [facility], [address] [place], [place] [address]Gxohsggfayr in HDL [Mass/Vol]40 mg/dLNormal>39ProTexas Orthopedic HospitalComment on above:Result Comment: HDL <40 mg/dL - High Risk HDL > or = 40mg/dL- Desirable HDL >60 mg/dL - Negative Risk Performed By: #### JAMES STARR, , 87837-1 #### [facility] ([id number]) [address] [place] [address] 22039 #### 51377-2 #### [facility] ([id number]) [address] [facility], [address] [place], [place] [address]Rjwmcwksdfm in LDL [Mass/Vol]57 mg/dLNormal<130ProTexas Orthopedic HospitalComment on above:Result Comment: LDL <100 mg/dL - Desirable LDL >160 mg/dL - High Risk Performed By: #### JAMES STARR, , 93464-0 #### [facility] ([id number]) [address] [place] [address] 49080 #### 78543-5 #### [facility] ([id number]) [address] [facility], [address] [place], [place] [address]Jghikkmocau in VLDL [Mass/Vol]38 mg/dLHigh0-30Pro[facility] Orthopedic HospitalComment on above:Performed By: #### JAMES STARR, 1987-08, 93591-3 #### [facility] ([id number]) [address] [place] [address] 03575 #### 21317-6 #### [facility] ([id number]) [address] [facility], [address] [place], [place] [address]UWFONKCWNEI:HDL3.3Ipjnlx0.0-5.0[facility] Medical CenterComment on above:Performed By: #### JAMES STARR, 1987-08, 24756-9 #### [facility] ([id number]) [address] [place] [address] 20160 #### 68540-9 #### [facility] ([id number]) [address] [place] [address], [address] [place], [place] [address]Ywrcnvjajadc [Mass/Vol]192 mg/rFAcuz49-952FodLdnokbTexas Orthopedic HospitalComment on above:Performed By: #### JAMES STARR, 1987-08, 57390-7 #### [facility] ([id number]) [address] [place] [address] 64845 #### 98651-0 #### [facility] ([id number]) [address] [place] [address], [address] [place] [address]HGTRYYWNDan 18-07-9031Ejpdafzcd [Mass/Vol]2.1 mg/dLNormal1.8-2.6 [facility] CenterComment on above:Performed By: #### JAMES STARR, 1987-08, 63348-5 #### [facility] ([id number]) [address] [place] [address] 76073 #### 01812-4 #### [facility] ([id number]) [address] [place] [address], [address] [place] [address]76Tspzwdzlljj peptide.B prohormone N-Terminal IA [Mass/Vol]on 54-08-0121Ikpugwulzse peptide B (Bld) [Mass/Vol]1528 pg/mLHigh<=88ProTexas Orthopedic HospitalComment on above:Result Comment: NOTE NT-proBNP values less [...] renal failure. Test Performed by: [facility] [place] [address] Medical Anthropologist: Brittani Nieves Ph.D.; CLIA# [id number] By: #### MATTY CBCA, 1987-08, 83163-9 #### [facility] ([id number]) [address] [place] [address] 01677 #### 31251-2 #### [facility] ([id number]) [address] [place] [address], [address] [place], [place] [address]Pusuface specific Ag [Mass/Vol]on 65-18-3490FHC SCREEN1.65 ng/mL Normal0.00-4.00ProTexas Orthopedic HospitalComment on above:Result Comment: The method used for this test is Rufus Rommel DXI chemiluminescent immunoassay. Values obtained by different assay methods cannot be used interchangeably.Performed By: #### MATTY, CBCA, 1987-08, 85717-0 #### [facility] ([id number]) [address] [place] [address] 18079 #### 27697-3 #### [facility] ([id number]) [address] [facility], [address] [place], [place] [address]Exgeoyx D+Metabolites [Mass/Vol]on 34-99-9989UUDLCOU D 25 HYD TOT8.3 ng/cFNyr90-149UsdJtkawyTexas Orthopedic HospitalComment on above:Result Comment: Vitamin D status 25 [place] Vitamin D Deficiency <20 ng/mL Insufficiency 20-29 ng/mL Sufficiency 30-100 ng/mL Toxicity >100 ng/mL NOTE: A pediatric reference range has not been established by the venetian blind maker of this kit. The [employer] recommends a Vitamin D level of = or >20ng/mL in infants and children.Performed By: #### JAMES STARR, 1987-08, 57487-8 #### [facility] ([id number]) [address] [place] [address] 34529 #### 62865-6 #### [facility] ([id number]) [address], [address] [place], [place] [address]OBORD UREA NITROGENon 29-53-6789Kwqr nitrogen [Mass/Vol]33 mg/dL High5-27ProTexas Orthopedic HospitalComment on above:Performed By: #### JAMES STARR, 1987-08, 26142-7 #### [facility] ([id number]) [address] [place] [address] 17565 #### 12725-6 #### [facility] ([id number]) [address], [address] [place], [place] [address]ZQZUDLYUSZuh 93-36-0523Pklusaxqqz [Mass/Vol]2.42 mg/dLHigh 0.70-1.20ProTexas Orthopedic HospitalComment on above:Result Comment: METHOD TRACEABLE TO IDSD STANDARDPerformed By: #### JAMES STARR, 1987-08, 09973-1 #### [facility] ([id number]) [address] [place] [address] 76967 #### 39424-5 #### [facility] ([id number]) [address], [address] [place], [place] [address]IXP/1.73 sq M.predicted among non-blacks MDRD (S/P/Bld) [Vol rate/Area]29 mL/min/{1.73_m2}Low>59ProTexas Orthopedic HospitalComment on above: Result Comment: Reported eGFR is based on the CKD-EPI 2020 equation that does not use a race coefficient.Performed By: #### JAMES STARR, 1987-08, 16815-4 #### [facility] ([id number]) [address] [place] [address] 89310 #### 22700-2 #### [facility] ([id number]) [address], [address] [place], [place] [address]CVTYLBQJMEKWoa 96-05-8047Opnxv gap [Moles/Vol]7 mmol/LNormal5-15 [facility] CenterComment on above:Performed By: #### JAMES STARR, 1987-08, 87910-3 #### [facility] ([id number]) [address] [place] [address] 34498 #### 64942-3 #### [facility] ([id number]) [address], [address] [place], [place] [address]Lhavizet [Moles/Vol]106 mmol/YCoejvo97-608JzgIuqjgn Saint [facility] Medical CenterComment on above:Performed By: #### JAMES STARR, 1987-08, 67802-9 #### [facility] ([id number]) [address] [place] [address] 24466 #### 50248-8 #### [facility] ([id number]) [address], [address] [place], [place] [address]QF7 [Moles/Vol]21 mmol/VOwb01-99OsuOumrno [facility] Comment on above:Performed By: #### JAMES STARR, 1987-08, 78604-7 #### [facility] ([id number]) [address] [place] [address] 36664 #### 70263-6 #### [facility] ([id number]) [address], [address] [place], [place] [address]Rlhoghryb [Moles/Vol]4.2 mmol/LNormal3.5-5.0ProTexas Orthopedic HospitalComment on above:Performed By: #### JAMES STARR, 1987-08, 23181-2 #### [facility] ([id number]) [address] [place] [address] 67281 #### 40066-7 #### [facility] ([id number]) [address] [place] [address], [address] [place], [place] [address]Wicifp [Moles/Vol]134 mmol/XPstmyg866-814SqmPzuqbq [facility] HospitalComment on above:Performed By: #### JAMES STARR, 1987-08, 47076-5 #### [facility] ([id number]) [address] [place] [address] 51644 #### 07346-1 #### [facility] ([id number]) [address] [place] [address], [address] [place], [place] [address]Wjvdnieklkk peptide.B prohormone N-Terminal [Mass/Vol]on 59-01-0383QA Pro BNPSee BelowNormalProTexas Orthopedic HospitalComment on above: Result Comment: NOTE TEST RESULT FLAG UNIT REF.RANGE PRO B Natr Peptide 933 H pg/mL <125 Test Performed By: [facility] [employer] [address] [place] [address] [employer]inder [employer] Machine Operator: Charlotte Hart III #[id number] By: #### JAMES STARR, 1987-08, 01172-6 #### [facility] ([id number]) [address] [place] [address] 59688 #### 67000-5 #### [facility] ([id number]) [address], [address] [place], [place] [address]SXPGP UREA NITROGENon 90-33-7916Htie nitrogen [Mass/Vol]38 mg/dL High5-27ProTexas Orthopedic HospitalComment on above:Performed By: #### JAMES STARR, 1987-08, 21288-9 #### [facility] ([id number]) [address] [place] [address] 69230 #### 28595-0 #### [facility] ([id number]) [address] [facility], [address] [place], [place] [address]RRJGOINIKFnu 82-80-8097Lxilapavkz [Mass/Vol]2.76 mg/dLHigh 0.70-1.20ProTexas Orthopedic HospitalComment on above:Result Comment: METHOD TRACEABLE TO IDMS STANDARDPerformed By: #### JAMES STARR, 1987-08, 59930-0 #### [facility] ([id number]) [address] [place] [address] 87182 #### 18836-0 #### [facility] ([id number]) [address] [facility], [address] [place], [place] [address]PVP/1.73 sq M.predicted among non-blacks MDRD (S/P/Bld) [Vol rate/Area]25 mL/min/{1.73_m2}Low>59ProTexas Orthopedic HospitalComment on above: Result Comment: Reported eGFR is based on the CKD-EPI 2020 equation that does not use a race coefficient.Performed By: #### JAMES STARR, 1987-08, 35678-4 #### [facility] ([id number]) [address] [place] [address] 52183 #### 20376-8 #### [facility] ([id number]) [address] [facility], [address] [place], [place] [address]RJGPRSVGHTWPgd 61-17-7682Pufcx gap [Moles/Vol]7 mmol/LNormal5-15 [facility] CenterComment on above:Performed By: #### JAMES STARR, 1987-08, 43080-2 #### [facility] ([id number]) [address] [place] [address] 86426 #### 01875-8 #### [facility] ([id number]) [address], [address] [place], [place] [address]Scfptkxv [Moles/Vol]104 mmol/TUmvpbq12-919RtrGtbsztTexas Orthopedic HospitalComment on above:Performed By: #### JAMES STARR, 1987-08, 95394-2 #### [facility] ([id number]) [address] [place] [address] 77367 #### 48424-7 #### [facility] ([id number]) [address], [address] [place], [place] [address]WC6 [Moles/Vol]21 mmol/TIno71-19BlgAqhdtn [facility] Comment on above:Performed By: #### JAMES STARR, 1987-08, 30910-4 #### [facility] ([id number]) [address] [place] [address] 21992 #### 46644-4 #### [facility] ([id number]) [address], [address] [place], [place] [address]Gfdzgvaxr [Moles/Vol]4.3 mmol/LNormal3.5-5.0ProTexas Orthopedic HospitalComment on above:Performed By: #### JAMES STARR, 1987-08, 57311-3 #### [facility] ([id number]) [address] [place] [address] 89453 #### 56353-3 #### [facility] ([id number]) [address], [address] [place], [place] [address]Eecwdc [Moles/Vol]132 mmol/ONec069-282HkgBnyyiqKettering Health – Soin Medical Center Comment on above:Performed By: #### JAMES STARR, 1987-08, 53603-7 #### [facility] ([id number]) [address] [place] [address] 53696 #### 80920-9 #### [facility] ([id number]) [address] [facility], [address] [place], [place] [address]Tadsgjqntnu peptide.B prohormone N-Terminal [Mass/Vol]on 17-24-8249FK Pro BNPSee BelowNormalProTexas Orthopedic HospitalComment on above: Result Comment: NOTE TEST RESULT FLAG UNIT REF.RANGE PRO B Natr Peptide 1296 H pg/mL <125 Test Performed By: [place] [address] [employer] Operator: Charlotte Hart III #[id number] By: #### JAMES STARR, 1987-08, 46777-8 #### [facility] ([id number]) [address] [place] [address] 36800 #### 65830-5 #### [facility] ([id number]) [address] [facility], [address] [place], [place] [address]KJQQJ UREA NITROGENon 54-86-9015Umfe nitrogen [Mass/Vol]34 mg/dL High5-27ProTexas Orthopedic HospitalComment on above:Performed By: #### JAMES STARR, 1987-08, 16368-0 #### [facility] ([id number]) [address] [place] [address]58[address] #### 66918-2 #### [facility] ([id number]) [address] [facility] [place], [place] [address]AOCRFZUKFZph 12-98-0989Jgwvfjtdwm [Mass/Vol]3.13 mg/dLHigh 0.70-1.20[facility] Soin Medical CenterComment on above:Result Comment: METHOD TRACEABLE TO IDMS STANDARDPerformed By: #### JAMES STARR, 1987-08, 20614-1 #### [facility] ([id number]) [address] [place] [address] #### 98379-7 #### [facility] ([id number]) [address] [facility], [address] [address]ZDQ/1.73 sq M.predicted among non-blacks MDRD (S/P/Bld) [Vol rate/Area]22 mL/min/{1.73_m2}Low>59ProTexas Orthopedic HospitalComment on above: Result Comment: Reported eGFR is based on the CKD-EPI 2020 equation that does not use a race coefficient.Performed By: #### JAMES STARR, 1987-08, 99463-8 #### [facility] ([id number]) [address] [place] [address] #### 52638-2 #### [facility] ([id number]) [address] [facility] [place], [place] [address]BBNQXUEAEVQUbr 80-01-9665Irkod gap [Moles/Vol]8 mmol/LNormal5-15 ProMTorrance Memorial Medical CenterComment on above:Performed By: #### JAMES STARR, 1987-08, 18532-0 #### [facility] ([id number]) [address] [place] [address] #### 74366-1 #### [facility] ([id number]) [address], [address] [place], [place] [address]Sfgkopxd [Moles/Vol]106 mmol/HPdykqk69-318TmyBzqvdkTexas Orthopedic HospitalComment on above:Performed By: #### JAMES STARR, 1987-08, 66939-9 #### [facility] ([id number]) [address] [place] [address] #### 70738-9 #### [facility] ([id number]) [address] [facility], [address] [place], [place] [address]AY7 [Moles/Vol]20 mmol/XJht30-47KyvMfmldxLima City Hospital Comment on above:Performed By: #### JAMES STARR, 1987-08, 37144-5 #### [facility] ([id number]) [address] [place] [address] #### 74504-6 #### [facility] ([id number]) [address] [facility] [place], [place] [address]Dejcnnqti [Moles/Vol]4.7 mmol/LNormal3.5-5.0ProTexas Orthopedic HospitalComment on above:Performed By: #### JAMES STARR, 1987-08, 11325-5 #### [facility] ([id number]) [address] [place] [address] #### 07095-3 #### [facility] ([id number]) [address] [facility] [place], [place] [address]Bozzel [Moles/Vol]134 mmol/LJxgdln600-653KuvTureaa Fremont HospitalComment on above:Performed By: #### JAMES STARR, 1987-08, 75261-2 #### [facility] ([id number]) [address] [place] [address] #### 35857-8 #### [facility] ([id number]) [address] [facility], [address] [place], [place] [address]Dcucxybamsj peptide.B prohormone N-Terminal [Mass/Vol]on 86-57-5308IM Pro BNPSee BelowNormalProTexas Orthopedic HospitalComment on above: Result Comment: NOTE TEST RESULT FLAG UNIT REF.RANGE PRO B Natr Peptide 413 H pg/mL <125 Test Performed By: [place] [address] [employer] Operator: Charlotte Hart III #[id number] By: #### JAMES STARR, 1987-08, 10087-6 #### [facility] ([id number]) [address] [place] [address] #### 08984-7 #### [facility] ([id number]) [address] [place] [address] [address] [place], [place] [address]PSFXO UREA NITROGENon 88-29-1724Hjmx nitrogen [Mass/Vol]33 mg/dL High5-27ProTexas Orthopedic HospitalComment on above:Performed By: #### JAMES STARR, 1987-08, 69982-1 #### [facility] ([id number]) [address] [place] [address] 61780 #### 57878-3 #### [facility] ([id number]) [address] [place] [address], [address] [place], [place] [address]SILERZOUEOwx 46-80-4962Cjojgdknbv [Mass/Vol]2.37 mg/dLHigh 0.70-1.20ProTexas Orthopedic HospitalComment on above:Result Comment: METHOD TRACEABLE TO IDMS STANDARDPerformed By: #### JAMES STARR, 1987-08, 32860-3 #### [facility] ([id number]) [address] [place] [address] 64855 #### 84789-3 #### [facility] ([id number]) [address] [facility], [address] [place], [place] [address]QPY/1.73 sq M.predicted among non-blacks MDRD (S/P/Bld) [Vol rate/Area]30 mL/min/{1.73_m2}Low>59ProTexas Orthopedic HospitalComment on above: Result Comment: Reported eGFR is based on the CKD-EPI 2020 equation that does not use a race coefficient.Performed By: #### JAMES STARR, 1987-08, 33072-8 #### [facility] ([id number]) [address] [place] [address] 39580 #### 64029-2 #### [facility] ([id number]) [address] [facility], [address] [place], [place] [address]KHBKXFGLTRHWyq 62-07-3921Sqcqj gap [Moles/Vol]7 mmol/LNormal5-15 [facility] CenterComment on above:Performed By: #### JAMES STARR, 1987-08, 48809-7 #### [facility] ([id number]) [address] [place] [address] 27186 #### 85701-3 #### [facility] ([id number]) [address] [facility], [address] [place], [place] [address]Icqskanm [Moles/Vol]106 mmol/WSbuxmo84-788HhbRuqhjwTexas Orthopedic HospitalComment on above:Performed By: #### JAMES STARR, 1987-08, 33167-5 #### [facility] ([id number]) [address] [place] [address] 52119 #### 38899-8 #### [facility] ([id number]) [address] [facility], [address] [place], [place] [address]LO1 [Moles/Vol]20 mmol/QUdh83-81UcgBjyfmxLima City Hospital Comment on above:Performed By: #### JAMES STARR, 1987-08, 51184-4 #### [facility] ([id number]) [address] [place] [address] 99642 #### 80453-0 #### [facility] ([id number]) [address] [facility], [address] [place], [place] [address]Frtrwqcyy [Moles/Vol]4.6 mmol/LNormal3.5-5.0[facility] Soin Medical CenterComment on above:Performed By: #### JAMES STARR, 1987-08, 29967-0 #### [facility] ([id number]) [address] [place] [address] 91524 #### 59849-8 #### [facility] ([id number]) [address] [facility], [address] [place], [place] [address]Podjuu [Moles/Vol]133 mmol/SZpe971-131DddRymisqKettering Health – Soin Medical Center Comment on above:Performed By: #### JAMES STARR, 1987-08, 64377-4 #### [facility] ([id number]) [address] [place] [address] 86563 #### 48209-5 #### [facility] ([id number]) [address] [facility], [address] [place], [place] [address]Ogbtcphbobq peptide.B prohormone N-Terminal [Mass/Vol]on 67-35-0301EY Pro BNPSee BelowNormalProTexas Orthopedic HospitalComment on above: Result Comment: NOTE TEST RESULT FLAG UNIT REF.RANGE PRO B Natr Peptide 526 H pg/mL <125 Test Performed By: [facility] [employer] [address] [address] Cylinder Die Machine Operator: Charlotte Hart III #[id number] By: #### BMP, CBCA, 1988-5, 59209-8 #### [facility] ([id number]) [address] [facility], [place] [address] #### 05590-4 #### [facility] ([id number]) [address] [place] [address], [address] [place], [place] [address]Inuo,Urineon 19-08-4630Osnh,UrineSpecimen Description .VOIDED URINE Culture ESCHERICHIA COLI >100,000 [...] SUSCEPTIBLE Tobramycin 4 SUSCEPTIBLE Trimethoprim/Sulfa >=320 RESISTANTResistantMercy Manchester Memorial HospitalComment on above:Performed By: #### URC #### [facility] [address] [place], [place] 7632[address] Medical Anthropologist: Griffin Carrion MD [facility] [address] [place] [address] Medical Anthropologist: WAYNE Mccann w/Reflex Cultureon 81-95-2933Bcrhrwygz, SemiQt,UrNegativeNormalNEGMercy Manchester Memorial HospitalComment on above:Performed By: #### UAX, UMICAO #### [facility] [address] [place] [address] Medical Anthropologist: Brenda Mccann, UrineTRACEAbnormalNEGAkron Children'S Hospital Comment on above:Performed By: #### UAX, UMICAO #### [facility] [address] [place] [address] Dr. [place], [place] 9456583 Medical Anthropologist: SHANI Mccannlarity (U)SLIGHTLY CLOUDYAbnormalCLEARMercy Newfoundland HospitalComment on above:Performed By: #### UAX, UMICAO #### [facility] [address] [place] [address] Dr. [place], [place] 6954783 Medical Anthropologist: SHANI Mccannolor (U)YellowNormalYSelect Medical [facility] [place] Comment on above:Performed By: #### UAX, UMICAO #### [facility] [address] [place] [address] Dr. [place], [place] 8665283 Medical Anthropologist: Jameson Aaron MDGlucose Ql (U)3+ mg/dLAbnormalNEGUniversity Hospitals Samaritan Medical Center HospitalComment on above:Performed By: #### UAX, UMICAO #### [facility] [address] [place] [address] Dr. [place], [place] 2169183 Medical Anthropologist: Jameson Aaron MDKetones Ql (U)NegativeNormalNEGUniversity Hospitals Samaritan Medical Center HospitalComment on above:Performed By: #### UAX, UMICAO #### [facility] [address] [place] [address] Dr. [place], [place] 0663883 Medical Anthropologist: Jameson Aaron MDLeukocyte esterase Test strip Ql (U)TRACEAbnormal NEGUniversity Hospitals Samaritan Medical Center HospitalComment on above:Performed By: #### UAX, UMICAO #### [facility] [address] [place] [address] Dr. [place], [place] 2228283 Medical Anthropologist: Jeaneth Mccannite,UrNegativeGrand Lake Joint [facility] District [facility] Comment on above:Performed By: #### UAX, UMICAO #### [facility] [address] [place] [address] [place] [address] Medical Anthropologist: CANDACE MccannH,Ur5.8Xahtoe1.0-9.0Ak[facility] Children'S HospitalComment on above:Performed By: #### UAX, UMICAO #### [facility] [address] [place] [address] Dr. [place], [place] 8577283 Medical Anthropologist: CANDACE Mccannrotein Ql (U)2+ mg/dLAbnormalNEGUniversity Hospitals Samaritan Medical Center HospitalComment on above:Performed By: #### UAX, UMICAO #### [facility] [address] [place] [address] Dr. [place], [place] 6490583 Medical Anthropologist: BUCK Mccannpec. [place],Ur1.226Pude4.010-1.020[facility] HospitalComment on above:Performed By: #### LORI JOSEPHO #### [facility] [address] [place] [address] Dr. [place], [place] 7353383 Medical Anthropologist: Jameson Aaron MDUrobilinogen,UrNormalNormal0.0-1.0[facility] Children'S HospitalComment on above:Performed By: #### LORI JOSEPHO #### [address] [place], [place] 2893483 Medical Anthropologist: Jameson Aaron MDUrinalysis,Microon 71-39-8894Rzqlleth5+Abnormal NONEMerOhioHealth Grove City Methodist Hospital HospitalComment on above:Performed By: #### JAKE, UMICAO #### [facility] [address] [place] [address] Dr. [place], [place] 7460283 Medical Anthropologist: Jameson Aaron MDEpithelial cells LM Ql (Urine sed)0 TO 8Iwoban0-6 [facility] HospitalComment on above:Performed By: #### UAX, UMICAO #### [facility] [address] [place] [address] Dr. [place], [place] 8786783 Medical Anthropologist: Jameson Aaron MDEpithelial, Renal0 TO 0Nhqijj6IvkrnAkron Children'S HospitalComment on above:Performed By: #### LORI JOSEPHO #### [facility] [address] [place], [place] 6599783 Medical Anthropologist: Edmond Mccann RBC's0 TO 2Tfvpts5-1XvlcsMemorial Hospital Comment on above:Performed By: #### COURTNEY JOSEPH #### [facility] [address] [place], [place] 6138483 Medical Anthropologist: Edmond Mccann WBC's10 TO 29Aerxnh3-2QmdxmAkron Children'S Hospital Comment on above:Performed By: #### COURTNEY JOSEPH #### [facility] [address] [place], [place] 6445083 Medical Anthropologist: Jameson Aaron MDYeastPRESENCE NOTEDAbnormalNONEMeLawrence+Memorial HospitalComment on above:Performed By: #### COURTNEY JOSEPH #### [facility] [address] [place], [place] 1023483 Medical Anthropologist: BRENDA Mccann UREA NITROGENon 09-12-5837Uxbl nitrogen [Mass/Vol]44 mg/dLHigh5-27ProTexas Orthopedic HospitalComment on above:Performed By: #### ELEC, 3094-0, VALUE ANALYSIS COORDINATOR, 29534-0 #### [facility] ([id number]) [address] [place] [address], [place] [address] #### 52921-0, HA1C #### [facility] ([id number]) [address] [place] [address], [address] [place], [place] [address]MRDBLZWZEMbc 49-41-7147Btzzvukhjo [Mass/Vol]2.71 mg/dLHigh 0.70-1.20ProTexas Orthopedic HospitalComment on above:Result Comment: METHOD TRACEABLE TO IDMS STANDARDPerformed By: #### ELEC, 3094-0, VALUE ANALYSIS COORDINATOR, 82083-5 #### [facility] ([id number]) [address] [place] [address] 87416 #### 22858-8, HA1C #### [facility] ([id number]) [address] [place] [address], [address] [place], [place] [address]EJN/1.73 sq M.predicted among non-blacks MDRD (S/P/Bld) [Vol rate/Area]26 mL/min/{1.73_m2}Low>59ProTexas Orthopedic HospitalComment on above: Result Comment: Reported eGFR is based on the CKD-EPI 2020 equation that does not use a race coefficient.Performed By: #### PHIL, 3094-0, VALUE ANALYSIS COORDINATOR, 57003-1 #### [facility] ([id number]) [address] [place] [address] 63329 #### 20580-8, HA1C #### [facility] ([id number]) [address] [place] [address], [address] [place] [address]UCSQYQVLGZBXih 36-45-8805Talii gap [Moles/Vol]11 mmol/LNormal 5-15ProTexas Orthopedic HospitalComment on above:Performed By: #### ELEC, 3094-0, VALUE ANALYSIS COORDINATOR, 14485-0 #### [facility] ([id number]) [address] [place] [address] 64072 #### 28726-7, HA1C #### [facility] ([id number]) [address] [place] [address], [address] [place], [place] [address]Qhriakja [Moles/Vol]101 mmol/JHwvmxy32-159LapViworuTexas Orthopedic HospitalComment on above:Performed By: #### ELEC, 3094-0, VALUE ANALYSIS COORDINATOR, 87030-2 #### [facility] ([id number]) [address] [place] [address] 02575 #### 39698-6, HA1C #### [facility] ([id number]) [address] [place] [address], [address] [place], [place] [address]JN7 [Moles/Vol]18 mmol/HEva67-74BnwXyhbcbLima City Hospital Comment on above:Performed By: #### ELEC, 3094-0, VALUE ANALYSIS COORDINATOR, 90636-7 #### [facility] ([id number]) [address] [place] [address]74 #### 01352-6, HA1C #### [facility] ([id number]) [address] [facility], [address] [place], [place] [address]Pxwbmxnsi [Moles/Vol]4.4 mmol/LNormal3.5-5.0ProTexas Orthopedic HospitalComment on above:Performed By: #### ELEC, 3094-0, VALUE ANALYSIS COORDINATOR, 99085-7 #### [facility] ([id number]) [address] [place] [address] 57328 #### 44897-8, HA1C #### [facility] ([id number]) [address] [facility], [address] [place], [place] [address]Hjriiw [Moles/Vol]130 mmol/ZFlm678-554AqnMkpenxKettering Health – Soin Medical Center Comment on above:Performed By: #### ELEC, 309-0, VALUE ANALYSIS COORDINATOR, 59401-4 #### [facility] ([id number]) [address] [place] [address] 88190 #### 17636-8, HA1C #### [facility] ([id number]) [address], [address] [place], [place] [address]ATH A1C (GLYCO-HGB)on 19-38-6619Ebjgmce [Mass/Vol]260 mg/dL NormalProTexas Orthopedic HospitalComment on above:Performed By: #### BMP, CBCA, 1987-, 16195-1 #### [facility] ([id number]) [address] [place] [address] 61003 #### 05506-4 #### [facility] ([id number]) [address] [place] [address], [address] [place], [place] [address]KpR4s (Bld) [Mass fraction]10.7 %High4.4-5.6K[facility] Soin Medical CenterComment on above:Result Comment: NOTE ADA Guidelines Result HgbA1c Normal : less than 5.7 % Prediabetes : 5.7 % to 6.4 % Diabetes : > 6.4 % Use with caution in patients with abnormal hemoglobin variants as the half-life of red blood cells and in vivo glycation rates are affected.Performed By: #### MATTY, CBCA, 1987-08, 44798-1 #### [facility] ([id number]) [address] [place] [address] #### 38015-7 #### [facility] ([id number]) [address] [place] [address], [address] [place], [place] [address]Wphoo 1996 panelon 69-27-6804Ksgvjxwmxhz [Mass/Vol]205 mg/dLHigh 150-200ProTexas Orthopedic HospitalComdeckerville community hospital on above:Performed By: #### PHIL, 3094- 0, VALUE ANALYSIS COORDINATOR, 76460-4 #### [facility] ([id number]) [address] [place] [address] 22533 #### 80014-4, HA1C #### [facility] ([id number]) [address] [place] [address], [address] [place], [place] [address]Dkkqbxobger in HDL [Mass/Vol]35 mg/dLLow>39ProTexas Orthopedic HospitalComdeckerville community hospital on above:Result Comment: HDL <40 mg/dL - High Risk HDL > or = 40mg/dL- Desirable HDL >60 mg/dL - Negative Risk Performed By: #### PHIL, 3094-0, VALUE ANALYSIS COORDINATOR, 45419-5 #### [facility] ([id number]) [address] [place] [address]81 #### 66903-0, HA1C #### [facility] ([id number]) [address] [place], [place] [address]Ebwnjryaxtg in LDL [Mass/Vol]120 mg/dLNormal<130ProTexas Orthopedic HospitalComment on above:Result Comment: LDL <100 mg/dL - Desirable LDL >160 mg/dL - High Risk Performed By: #### ELEC, 3094-0, VALUE ANALYSIS COORDINATOR, 33335-5 #### [facility] ([id number]) [address] [place] [address]61 #### 22952-6, HA1C #### [facility] ([id number]) [address], [address] [place], [place] [address]Omqyyxkkcrs in VLDL [Mass/Vol]50 mg/dLHigh0-30ProTexas Orthopedic HospitalComment on above:Performed By: #### ELEC, 3094-0, VALUE ANALYSIS COORDINATOR, 20237-9 #### [facility] ([id number]) [address] [place] [address] 81167 #### 40604-6, HA1C #### [facility] ([id number]) [address], [address] [place], [place] [address]DPNUTZASTAT:HDL5.9High1.0-5.0ProTexas Orthopedic HospitalComment on above:Performed By: #### ELEC, 3094-0, VALUE ANALYSIS COORDINATOR, 13916-0 #### [facility] ([id number]) [address] [place] [address] 71165 #### 49553-6, HA1C #### [facility] ([id number]) [address], [address] [place], [place] [address]Roayqzsjcnid [Mass/Vol]248 mg/wZPody88-459CciGctasdTexas Orthopedic HospitalComment on above:Performed By: #### PHIL, 3094-0, VALUE ANALYSIS COORDINATOR, 74374-6 #### [facility] ([id number]) [address] [place] [address] #### 73344-1, HA1C #### [facility] ([id number]) [address], [address] [place], [place] [address]FXNOLJOJWSLG - ALBUMIN:CREATININE URINE RATIOon 05-06-2023 ALB/CREAT UPXIN8726.0 mg/g creatHigh0.0-30.0ProTexas Orthopedic HospitalComment on above:Performed By: #### JAMES STARR, 1987-08, 67197-9 #### [facility] ([id number]) [address] [place] [address] 92660 #### 38871-2 #### [facility] ([id number]) [address] [facility], [address] [place], [place] [address]Nnbuhvs DL <= 20 mg/L (U) [Mass/Vol]195.2 mg/dLHigh0.0-1.9 [facility] CenterComment on above:Performed By: #### JAMES STARR, 1987-08, 16485-5 #### [facility] ([id number]) [address] [place] [address] 18974 #### 63876-9 #### [facility] ([id number]) [address], [address] [place], [place] [address]FQFLX CREAT71.06 mg/dLNormalProTexas Orthopedic HospitalComment on above:Performed By: #### JAMES STARR, 1987-08, 21354-7 #### [facility] ([id number]) [address] [place] [address]77 #### 14287-4 #### [facility] ([id number]) [address] [place] [address], [address] [place], [place] [address]Tmxwmhbllwp peptide.B prohormone N-Terminal [Mass/Vol]on 19-77-9235FM Pro BNPSee BelowNormalProMedica Saint Francis Medical CenterComment on above: Result Comment: NOTE TEST RESULT FLAG UNIT REF.RANGE PRO B Natr Peptide 314 H pg/mL <125 Test Performed By: [place] [address] Cylinder Die Machine Operator: Tyler Valle III, M.D. CLIA #[id number] By: #### BMP, CBCA, 1987-, 64824-9 #### [facility] ([id number]) [address] [place] [address]998 #### 79796-7 #### [facility] ([id number]) [address] [place] [address], [address] [place], [place] [address]EKWERGVWSRqj 82-69-8808Ivzibjqzj Ql (U)NegativeNormalNEG [facility] Medical CenterComment on above:Performed By: #### UA #### [facility] ([id number]) [address] [place] [address]PDZPV/HGBTraceAbnormalNEGProHarrison Community Hospitalca Saint Francis Medical CenterComdeckerville community hospital on above:Performed By: #### UA #### [facility] ([id number]) [address] [place] [address]Umgwz (U)YELLOWNormalYELLOWProMedica Austin HospitalComment on above:Performed By: #### UA #### [facility] ([id number]) [address] [place] [address], [place] [address]Weenwje Ql (U)>1000AbnormalNEGProTexas Orthopedic HospitalComment on above:Performed By: #### UA #### [facility] ([id number]) [address] [place] [address], [place] [address]Kzarmii Ql (U)NegativeNormalNEGKettering Health – Soin Medical Center Comment on above:Performed By: #### UA #### [facility] ([id number]) [address] [place] [address], [place] [address]Cpjtnkgpw esterase Test strip Ql (U)NegativeFairfield Medical CenterComment on above:Result Comment: HIGH CONCENTRATIONS OF GLUCOSE MAY DECREASE THE REACTIVITY OF THE DIPSTICK LEUKOCYTE TEST PAD.Performed By: #### UA #### [facility] ([id number]) [address] [place] [address], [place] [address]QXQLSRJEIWATAOysytmpnIPYRLcxMakxbw Fremont HospitalComment on above:Performed By: #### UA #### [facility] ([id number]) [address] [place] [address], [place] [address]Hsmafof Ql (U)PositiveClinton Memorial Hospital Comment on above:Performed By: #### UA #### [facility] ([id number]) [address] [place] [address], [place] [address]kH (U)6.0 [pH]Normal5.0-8.5PLima City HospitalComment on above:Performed By: #### UA #### [facility] ([id number]) [address] [place] [address], [place] [address]Ddiiwny Ql (U)>300AbnormalNEGProTexas Orthopedic HospitalComment on above:Performed By: #### UA #### [facility] ([id number]) [address] [place] [address]Q.B.CELLS5 /hpfNormal0-5PLima City HospitalComment on above:Performed By: #### UA #### [facility] ([id number]) [address] [place] [address]Ifpwujmp gravity (U) [Rel density]1.264Qnoslk3.003-1.035 [facility] So[facility] Medical CenterComment on above:Performed By: #### UA #### [facility] ([id number]) [address] [place] [address]OLOQLWJT EPITHELIUM4 /hpfNormal0-[address] [place] [address] Comment on above:Performed By: #### UA #### [facility] ([id number]) [address] [place] [address]IKTSCTZGHZIKXMulbcpugIHTCVKvbLkntvg Fremont HospitalComment on above:Performed By: #### UA #### [facility] ([id number]) [address] [place] [address]Wwkchlyepesv Qn (U)0.2 {Chaya'U}/dLNormal<1.1PLima City HospitalComment on above:Performed By: #### UA #### [facility] ([id number]) [address] [place] [address]A.B.CELLS>169Ejjd7-2JolVerqwtLima City HospitalComment on above: Performed By: #### UA #### [facility] ([id number]) [address] [place] [address]SJHGP CULTUREon 91-79-7107Ccjaaydb identified Cx Nom (U) SPECIMEN NOTES URINE RECEIVED WITHOUT PRESERVATIVE CULTURE RESULTS MULTIPLE SPECIES PRESENT. PROBABLE COLLECTION CONTAMINATION. SUGGEST REPEAT SPECIMEN. URINE RECEIVED WITHOUT PRESERVATIVE-DELAYS IN TRANSPORT MAY AFFECT RESULTS.INTERPRET WITH CAUTION AND CLINICAL CORRELATION IS RECOMMENDED.Normal [facility] Soin Medical CenterComment on above:Performed By: #### JAMES STARR, 1987-08, 63434-8 #### [facility] ([id number]) [address] [place] [address] #### 74330-7 #### [facility] ([id number]) [address], [address] [place], [place] [address]QNZJG METABOLIC PANLon 24-74-3617Zebut gap [Moles/Vol]6 mmol/L Normal5-15ProTexas Orthopedic HospitalComment on above:Performed By: #### JAMES STARR, 1987-08, 49695-5 #### [facility] ([id number]) [address] [place] [address]283 #### 09709-1 #### [facility] ([id number]) [address], [address] [place], [place] [address]Ivgpxee [Mass/Vol]8.6 mg/dLNormal8.5-10.5Pro[facility] Saint Francis Medical CenterComment on above:Performed By: #### JAMES STARR, 1987-08, 90441-7 #### [facility] ([id number]) [address] [place] [address] #### 92001-9 #### [facility] ([id number]) [address], [address] [place], [place] [address]Necwvcmh [Moles/Vol]101 mmol/LFowqsw23-489WrpQcrllyTexas Orthopedic HospitalComment on above:Performed By: #### JAMES STARR, 1987-08, 52043-7 #### [facility] ([id number]) [address] [place] [address] #### 00723-4 #### [facility] ([id number]) [address], [address] [place], [place] [address]TM3 [Moles/Vol]19 mmol/XMsa04-00AuhBjykarLima City Hospital Comment on above:Performed By: #### JAMES STARR, 1987-08, 95194-6 #### [facility] ([id number]) [address] [place] [address] #### 97645-7 #### [facility] ([id number]) [address] [facility] [address] [address] [place], [place] [address]Ttswwerbom [Mass/Vol]2.57 mg/dLHigh0.70-1.20[facility] Soin Medical CenterComment on above:Result Comment: METHOD TRACEABLE TO IDMS STANDARD Performed By: #### JAMES STARR, 1987-08, #### [facility] ([id number]) [address] [place] [address] #### 65163-8 #### [facility] ([id number]) [address] [facility], [address] [place], [place] [address]AUK/1.73 sq M.predicted among non-blacks MDRD (S/P/Bld) [Vol rate/Area]27 mL/min/{1.73_m2}Low>59ProTexas Orthopedic HospitalComment on above: Result Comment: Reported eGFR is based on the CKD-EPI 2020 equation that does not use a race coefficient.Performed By: #### JAMES STARR, 1987-08, 24408-5 #### [facility] ([id number]) [address] [place] [address] #### 04845-1 #### [facility] ([id number]) [address] [place], [place] [address]Nlipdde [Mass/Vol]377 mg/pZNfhh64-85GylZoakmoKettering Health – Soin Medical Center Comment on above:Performed By: #### JAMES STARR, 1987-08, 18503-8 #### [facility] ([id number]) [address] [place] [address]76 #### 51207-2 #### [facility] ([id number]) [address] [place] [address], [address] [place], [place] [address]Spcsdnjrt [Moles/Vol]4.2 mmol/LNormal3.5-5.0ProTexas Orthopedic HospitalComment on above:Performed By: #### JAMES STARR, 1987-08, 56786-7 #### [facility] ([id number]) [address] [place] [address] #### 81587-1 #### [facility] ([id number]) [address] [place] [address], [address] [place] [address] 17835Usiwcn [Moles/Vol]126 mmol/KTlj876-166IivRapyzmTexas Orthopedic Hospital Comment on above:Performed By: #### JAMES STARR, 1987-08, 11638-5 #### [facility] ([id number]) [address] [place] [address] 48421 #### 56058-8 #### [facility] ([id number]) [address] [place] [address], [address] [place] [address] 97216Tjkr nitrogen [Mass/Vol]30 mg/dLHigh5-27ProTexas Orthopedic HospitalComment on above:Performed By: #### JAMES STARR, 1987-08, 62813-1 #### [facility] ([id number]) [address] [place] [address] 09156 #### 87262-5 #### [facility] ([id number]) [address] [place] [address], [address] [place], [place] [address]OWX AND AUTO DIFFon 47-00-1327YQCJVXFV BASOPHIL0.1 X10E9/LNormal 0.0-0.2Pro[facility]ica Saint Francis Medical CenterComment on above:Performed By: #### JAMES STARR, 1987-08, 24380-7 #### [facility] ([id number]) [address] [place] [address] 10134 #### 72008-8 #### [facility] ([id number]) [address] [facility], [address] [place], [place] [address]YUZCWYZY NEUTROPHIL8.8 X10E9/LHigh1.5-6.6ProTexas Orthopedic HospitalComment on above:Performed By: #### MATTY CBCA, 1987-08, 99054-6 #### [facility] ([id number]) [address] [place] [address] 15458 #### 65068-4 #### [facility] ([id number]) [address] [facility], [address] [place], [place] [address]Muugzdpfu/100 WBC (Bld)0.5 %[facility] Comment on above:Performed By: #### MATTY CBCJarrett, 1987-08, 67848-4 #### [facility] ([id number]) [address] [place] [address] 84070 #### 96029-2 #### [facility] ([id number]) [address] [facility], [address] [place], [place] [address]Yyeatpoueqz (Bld) [#/Vol]0.3 10*3/uLNormal0.0-0.4ProTexas Orthopedic HospitalComment on above:Performed By: #### MATTY CBCA, 1987-08, 83712-7 #### [facility] ([id number]) [address] [place] [address] 94475 #### 92116-0 #### [facility] ([id number]) [address] [facility], [address] [place], [place] [address]Uvorryosefd/100 WBC (Bld)2.6 %[facility] Comment on above:Performed By: #### JAMES STARR, 1987-08, 44370-5 #### [facility] ([id number]) [address] [place] [address] 86349 #### 79165-7 #### [facility] ([id number]) [address], [address] [place], [place] [address]Bleoiatztik distribution width (RBC) [Ratio]15.5 %High11.5-15.0 ProMTorrance Memorial Medical CenterComment on above:Performed By: #### JAMES STARR, 1987-08, 16248-2 #### [facility] ([id number]) [address] [place] [address] 02208 #### 76421-4 #### [facility] ([id number]) [address], [address] [place], [place] [address]Fypicyjrxe (Bld) [Volume fraction]36.8 %Yef40-22PhxWkqbsjTexas Orthopedic HospitalComment on above:Performed By: #### JAMES STARR, 1987-08, 19263-8 #### [facility] ([id number]) [address] [place] [address] 52699 #### 39555-0 #### [facility] ([id number]) [address], [address] [place], [place] [address]Yvqqwbuuyx (Bld) [Mass/Vol]12.0 g/dLLow13.0-17.0[facility] Soin Medical CenterComment on above:Performed By: #### JAMES STARR, 1987-08, 83807-1 #### [facility] ([id number]) [address] [place] [address] 43295 #### 61374-9 #### [facility] ([id number]) [address], [address] [place], [place] [address]Drhswcttxfn (Bld) [#/Vol]1.9 10*3/uLNormal1.0-3.5ProMedKaiser Foundation HospitalComment on above:Performed By: #### MATTY, CBCA, 1987-08, 03370-8 #### [facility] ([id number]) [address] [place] [address] 96161 #### 79976-5 #### [facility] ([id number]) [address] [facility], [address] [place], [place] [address]Fjljvymcgwt/100 WBC (Bld)15.1 %NormalKettering Health – Soin Medical Center Comment on above:Performed By: #### MATTY CBCA, 1987-08, 53445-2 #### [facility] ([id number]) [address] [place] [address] 43772 #### 98401-1 #### [facility] ([id number]) [address] [facility], [address] [place], [place] [address]QCY (RBC) [Entitic mass]28.2 kbPgyoou59-24IhtEaopkpKettering Health – Soin Medical CenterComment on above:Performed By: #### MATTY CBCA, 1987-08, 61853-9 #### [facility] ([id number]) [address] [place] [address] 10642 #### 46695-0 #### [facility] ([id number]) [address] [facility], [address] [place], [place] [address]FGEP (RBC) [Mass/Vol]32.7 g/eDGksyjc19-06RvxEwqlwsKettering Health – Soin Medical CenterComment on above:Performed By: #### MATTY CBCA, 1987-08, 84874-6 #### [facility] ([id number]) [address] [place] [address] 36715 #### 45513-0 #### [facility] ([id number]) [address] [facility], [address] [place], [place] [address]YBQ (RBC) [Entitic vol]86 gCOobjav58-770QuzBesdfa Fremont HospitalComment on above:Performed By: #### MATTY CBCJarrett, 1987-08, 00131-1 #### [facility] ([id number]) [address] [place] [address] 73472 #### 87045-0 #### [facility] ([id number]) [address], [address] [place], [place] [address]Wevpojjxc (Bld) [#/Vol]1.4 10*3/uLHigh0-0.9ProTexas Orthopedic HospitalComment on above:Performed By: #### MATTY CBCJarrett, 1987-08, 37372-3 #### [facility] ([id number]) [address] [place] [address] 56517 #### 06199-9 #### [facility] ([id number]) [address], [address] [place], [place] [address]Otjitubpo/100 WBC (Bld)11.2 %NormalKettering Health – Soin Medical Center Comment on above:Performed By: #### MATTY CBCJarrett, 1987-08, #### [facility] ([id number]) [address] [place] [address] 59239 #### 22656-7 #### [facility] ([id number]) [address], [address] [place], [place] [address]Densrxtcvlt/100 WBC (Bld)70.6 %NormalKettering Health – Soin Medical Center Comment on above:Performed By: #### MATTY CBCJarrett, 1987-08, 11823-1 #### [facility] ([id number]) [address] [place] [address] 29849 #### 52756-9 #### [facility] ([id number]) [address], [address] [place], [place] [address]Jrnnflju mean volume (Bld) [Entitic vol]7.6 fLNormal7-12 ProMTorrance Memorial Medical CenterComment on above:Performed By: #### JAMES STARR, 1987-08, #### [facility] ([id number]) [address] [place] [address] 09831 #### 03791-7 #### [facility] ([id number]) [address] [facility], [address] [place], [place] [address]Bjmicjnlp (Bld) [#/Vol]325 10*3/cQPeryjq265-498BitJaviln Fremont HospitalComment on above:Performed By: #### JAMES STARR, 1987-08, #### [facility] ([id number]) [address] [place] [address] 16572 #### 41234-0 #### [facility] ([id number]) [address] [facility], [address] [place], [place] [address]STB COUNT4.27 X10E12/LNormal4.10-5.70[facility] Comment on above:Performed By: #### JAMES STARR, 1987-08, #### [facility] ([id number]) [address] [place] [address] 90608 #### 07729-7 #### [facility] ([id number]) [address] [facility], [address] [place], [place] [address]BJD (Bld) [#/Vol]12.5 10*3/uLHigh4.0-11.0ProTexas Orthopedic HospitalComment on above:Performed By: #### JAMES STARR, 1987-08, 67334-3 #### [facility] ([id number]) [address] [place] [address] 19579 #### 26019-1 #### [facility] ([id number]) [address], [address] [place], [place] [address]SAV [Mass/Vol]on 04-19-2023 REACTIVE PROTEIN7.8 mg/dLHigh 0.000-0.744Pro[facility]ica Saint Francis Medical CenterComment on above:Performed By: #### JAMES STARR, 1987-08, 11489-2 #### [facility] ([id number]) [address] [place] [address] 08433 #### 20388-4 #### [facility] ([id number]) [address] [facility], [address] [place], [place] [address]SFU Photometric method (Bld) [Velocity]on 61-71-3843KWP, ERYTHROCYTE SEDIMENTATION TQNF515 mm/hHigh0-20ProTexas Orthopedic HospitalComment on above:Performed By: #### JAMES STARR, 1987-08, 44522-2 #### [facility] ([id number]) [address] [place] [address] 41563 #### 76916-7 #### [facility] ([id number]) [address] [facility], [address] [place], [place] [address]Jlropjbvdjj peptide.B prohormone N-Terminal [Mass/Vol]on 37-53-1215JA Pro BNPSee BelowNormalProTexas Orthopedic HospitalComment on above: Result Comment: NOTE TEST RESULT FLAG UNIT REF.RANGE PRO B Natr Peptide 587 H pg/mL <125 Test Performed By: DOANwywy [address] [place] [address] Cylinder Die Machine Operator: Charlotte Hart III #[id number] By: #### BMP, CBCA, 1988-5, 34414-5 #### [facility] ([id number]) [address] [place] [address], [place] [address] #### 35739-0 #### [facility] ([id number]) [address] [place] [address], [address] [place], [place] [address]Ssntp Metabolic Profon 68-41-3966Uxsah gap [Moles/Vol]11 mmol/L Normal9-17Ak[facility] Children'S HospitalComment on above:Performed By: #### SED, CRP, BMP, CDP #### [address] [place], [place] [address] Medical Anthropologist: LENA Mccann/CRE Iqdhv15Vchkvt4-87Ecmol [facility] Comment on above:Performed By: #### SED, CRP, BMP, CDP #### [address] [place] [address] Medical Anthropologist: SHANI Mccannalcium [Mass/Vol]9.4 mg/dLNormal8.6-10.4Ak[facility] Children'S HospitalComment on above:Performed By: #### SED, CRP, BMP, CDP #### [address] [place] [address] Medical Anthropologist: SHANI Mccannhloride [Moles/Vol]98 mmol/UOodpsb23-750YagspAkron Children'S HospitalComment on above:Performed By: #### SED, CRP, BMP, CDP #### [facility] [address] [place] [address] [place] [address] Medical Anthropologist: Jameson Aaron MDCO2 [Moles/Vol]18 mmol/MDzr49-16FijzoAkron Children'S HospitalComment on above:Performed By: #### SED, CRP, BMP, CDP #### [address] [place], [place] [address] Medical Anthropologist: SHANI Mccannreatinine [Mass/Vol]2.7 mg/dLHigh0.7-1.2[facility]land HospitalComment on above:Performed By: #### EMIGDIO CRP, BMP, CDP #### [address] [place], [place] [address] Medical Anthropologist: Jameson Aaron MDGFR/1.73 sq M.predicted among non-blacks MDRD (S/P/Bld) [Vol rate/Area]26 mL/min/{1.73_m2}Low>60[facility] HospitalComment on above:Result Comment: These results are [...] By: #### EMIGDIO CRP, BMP, CDP #### [address] [place], [facility] Medical Anthropologist: Jameson Aaron MDGlucose [Mass/Vol]268 mg/rQGakj87-72Enlog [facility] Memorial HospitalComment on above:Performed By: #### EMIGDIO CRP, BMP, CDP #### [address] [place] [address] Medical Anthropologist: CANDACE Mccannotassium [Moles/Vol]5.2 mmol/LNormal3.7-5.3[facility] HospitalComment on above:Performed By: #### EMIGDIO CRP, BMP, CDP #### [address] [place], [place] 1076[address] Medical Anthropologist: BUCK Mccannodium [Moles/Vol]127 mmol/VQqi319-287DondoJohnson Memorial HospitalComment on above:Performed By: #### SED CRP, BMP, CDP #### [address] [place] [address] Medical Anthropologist: Yola Mccann nitrogen [Mass/Vol]44 mg/dLHigh8-23[facility] HospitalComment on above:Performed By: #### SED, CRP, BMP, CDP #### [address] [place] [address] Medical Anthropologist: SHANI Mccann-Reactive Proteinon 20-33-9668DQD [Mass/Vol]131.1 mg/LHigh0.0-5.0MerOhioHealth Grove City Methodist Hospital HospitalComment on above:Performed By: #### SED, CRP, BMP, CDP #### [address] [place] [address] Medical Anthropologist: SHANI MccannBC with Diffon 46-45-9916Sde. Basophil0.06 k/uL Normal0.00-0.20MerOhioHealth Grove City Methodist Hospital HospitalComment on above:Performed By: #### SED, CRP, BMP, CDP #### [address] [place], [place] [address] Medical Anthropologist: Megan Mccann.Imm.Granulocyte0.11 k/uLNormal0.00-0.30MerOhioHealth Grove City Methodist Hospital HospitalComment on above:Performed By: #### SED, CRP, BMP, CDP #### [address] [place], [place] [address] Medical Anthropologist: Megan Mccann.Neutrophil (Seg)6.83 k/uLNormal1.50-8.10MerOhioHealth Grove City Methodist Hospital HospitalComment on above:Performed By: #### SED, CRP, BMP, CDP #### [address] [place] [address] Medical Anthropologist: Jameson Aaron MDBasophils/100 WBC (Bld)1 %Normal0-2[facility] HospitalComment on above:Performed By: #### SED, CRP, BMP, CDP #### [address] [place] [address] Medical Anthropologist: Jameson Aaron MDEosinophils (Bld) [#/Vol]0.22 10*3/uLNormal 0.00-0.44MerOhioHealth Grove City [facility] Hospital HospitalComment on above:Performed By: #### SED, CRP, BMP, CDP #### [address] [place] [address] Medical Anthropologist: Jameson Aaron MDEosinophils/100 WBC (Bld)2 %Normal1-4[facility] HospitalComment on above:Performed By: #### SED, CRP, BMP, CDP #### [address] [place] [address] Medical Anthropologist: Jameson Aaron MDErythrocyte distribution width (RBC) [Ratio]14.6 % High11.8-14.4MerOhioHealth Grove City Methodist Hospital HospitalComment on above:Performed By: #### SED, CRP, BMP, CDP #### [address] [place] [address] Medical Anthropologist: Jameson Aaron MDHematocrit (Bld) [Volume fraction]41.9 %Normal 40.7-50.3[facility] HospitalComment on above:Performed By: #### SED, CRP, BMP, CDP #### [address] [place] [address] Medical Anthropologist: Jameson Aaron MDHemoglobin (Bld) [Mass/Vol]13.2 g/dLNormal 13.0-17.0[facility] HospitalComment on above:Performed By: #### SED, CRP, BMP, CDP #### [address] [place] [address] Medical Anthropologist: Jameson Aaron MDImmature granulocytes/100 WBC (Bld)1 %Kast6Clprq [facility]iffin HospitalComment on above:Performed By: #### SED, CRP, BMP, CDP #### [address] [place] [address] Medical Anthropologist: Jameson Aaron MDLymphocytes (Bld) [#/Vol]1.83 10*3/uLNormal 1.10-3.70[facility] HospitalComment on above:Performed By: #### SED, CRP, BMP, CDP #### [address] [place] [address] Medical Anthropologist: Freddy Mccannhocytes/100 WBC (Bld)18 %Xxg21-87DpcltAkron Children'S HospitalComment on above:Performed By: #### SED, CRP, BMP, CDP #### [address] [place] [address] Medical Anthropologist: JUAN MccannCH (RBC) [Entitic mass]28.2 ixQcvtjv32.2-33.5 [facility] HospitalComment on above:Performed By: #### SED, CRP, BMP, CDP #### [address] [place] [address] Medical Anthropologist: JUAN MccannCHC (RBC) [Mass/Vol]31.5 g/kFOyarkm87.4-34.8[facility] HospitalComment on above:Performed By: #### SED, CRP, BMP, CDP #### [address] [place] [address] Medical Anthropologist: JUAN MccannCV (RBC) [Entitic vol]89.5 kHGbugmp11.6-102.9 [facility] HospitalComment on above:Performed By: #### SED, CRP, BMP, CDP #### [address] [place], [place] 90[address]383 Medical Anthropologist: JUAN Mccannonocytes (Bld) [#/Vol]1.42 10*3/uLHigh0.10-1.20 [facility]'S HospitalComment on above:Performed By: #### SED, CRP, BMP, CDP #### [address] [place], [place] [address] Medical Anthropologist: JUAN Mccannonocytes/100 WBC (Bld)14 %High3-12[facility] Children'S HospitalComment on above:Performed By: #### SED, CRP, BMP, CDP #### [address] [place], [place] [address] Medical Anthropologist: Jameson Aaron MDNeutrophil (Seg)64 %Kffqwy66-59MtkwpAkron Children'S HospitalComment on above:Performed By: #### SED, CRP, BMP, CDP #### [address] [place], [facility] Medical Anthropologist: Jameson Aaron MDNRBC Automated0.0 per 100 WBCNormal0.0Ak[facility] Children'S HospitalComment on above:Performed By: #### SED, CRP, BMP, CDP #### [address] [place] [address] Medical Anthropologist: Jayy Mccann mean volume (Bld) [Entitic vol]9.4 fL Normal8.1-13.5[facility] Children'S HospitalComdeckerville community hospital on above:Performed By: #### SED, CRP, BMP, CDP #### [address] [place], [facility] Medical Anthropologist: CANDACE Mccannlatelets (Bld) [#/Vol]266 10*3/pWKodxbz435-462 [facility]S HospitalComdeckerville community hospital on above:Performed By: #### SED, CRP, BMP, CDP #### [address] [place] [address] Medical Anthropologist: Jameson Aaron MDRBC (Bld) [#/Vol]4.68 10*6/uLNormal4.21-5.77Mer [facility]foundland HospitalComment on above:Performed By: #### SED, CRP, BMP, CDP #### [facility] [address] [place], [place] [address] Medical Anthropologist: KATHRYN Mccann ([facility]) [#/Vol]10.5 10*3/uLNormal3.5-11.3[facility] HospitalComment on above:Performed By: #### SED, CRP, BMP, CDP #### [facility] [address] [place], [facility] Medical Anthropologist: BUCK Mccannedimentation Rateon 15-60-1076Guscgwxeuctop Rate 114 mm/HrHigh0-20[facility]'S HospitalComment on above:Performed By: #### EMIGDIO, CRP, BMP, CDP #### [facility] [address] [place], [facility] Medical Anthropologist: AKIKO Mccann CULTUREon 21-31-3702Kymkal (Mycology) CultureFinal Wexner Medical CenterComment on above:Performed By: #### CXFUN ####[facility] [address] [place], [place] [address]Dr. Eddie Petersonngus StainFinal Cleveland ClinicComment on above:Performed By: #### CXFUN ####[facility] [address] [place], [place] [address]Dr. Eddie LernerResult 1CommentOhioHealthComment on above:Result Comment: ANNEMARIE/Calcofluor preparation: no fungus observed.Performed By: #### CXFUN ####[facility] [address] [place], [place] [address]Dr. Eddie LernerResult 1Candida albicansAbMercy Health Allen HospitalComment on above:Performed By: #### CXFUN ####[facility] [address] [place], [place] [address]Dr. Eddie Lazaro OTHER on 28-28-9896DWZOFMP OTHERIsolate 1 Enterococcus faecalis Light growth of ORGANISM 1 Enterococcus faecalis ANTIBIOTIC M.I.C RX STATUS Beta-Lactamase Neg NEG F Benzylpenicillin 0.5 S F Ampicillin <=2 S F Gentamicin High Level (synergy) SYN-R R F Streptomycin High Level (synergy) SYN-S S F Quinupristin/Dalfopristin 4 R F Linezolid 1 S F Vancomycin 1 S FNormalThe [facility] HospitalComment on above:Performed By: #### OTHCX ####[facility] [address] [place] [address]Dr. Eddie LernerACID FAST SMEAR AND CXon 29-54-5990Ieno Fast SmearNegative NormalMccullough-Hyde Memorial HospitalComment on above:Performed By: #### AFB ####[facility] [address] [place] [address]DrMinal LernerAFB Specimen ProcessingTissue [facility] HospitalComdeckerville community hospital on above: Performed By: #### AFB ####[facility] [address] [place], [place] [address]DrMinal LernerBNPon 04-81-7861Pnfcefcfwrs peptide B (Bld) [Mass/Vol]648.0 pg/mLNormal<=900.0The [facility] HospitalComment on above: Performed By: #### A1C #### [facility] [address] [place] [address] [address] Eddie Lazaro ANAEROBICon 63-32-0833CXREBCO ANAEROBICCulture Observations: NO GROWTH OF ANAEROBES AT 72 HOURS.NormalThe [facility] HospitalComment on above: Performed By: #### ANACX ####[facility] [address] [place], [place] [address]DrVaishali LernerGLYCOHEMOGLOBIN A1Con 04-51-5438SNQ RECOMMENDATIONSEE Medina HospitalComdeckerville community hospital on above:Result Comment: ADA RECOMMENDED LIMIT 4.0 - 6.0 ADA THERAPEUTIC TARGET < 7.0 ACTION SUGGESTED > 7.0Performed By: #### RENAL, LIPID, LIVER, TSH #### [facility] [address] [place] [address] [address] Eddie LernerGlucose [Mass/Vol]235 mg/dLOhioHealthComment on above:Performed By: #### RENAL, LIPID, LIVER, TSH #### [facility] [address] [place] [address] [address] Eddie LernerHbA1c (Bld) [Mass fraction]9.8 %Critically high4.5-6.2Mccullough-Hyde Memorial HospitalComment on above:Performed By: #### RENAL, LIPID, LIVER, TSH #### [facility] [address] [place] [address] [address] Eddie Newman STAINon 19-82-8753EMAFSTURJR ORGANISMS OBSERVEDOhioHealthComment on above:Performed By: #### GSTAIN ####[facility] [address] [place] [address]Dr. Eddie Lerner DIPHTHEROIDSOhioHealthComment on above:Performed By: #### GSTAIN ####[facility] [address] [place] [address]Dr. Yilan ChangEPITHELIALSOhioHealthComment on above: Performed By: #### GSTAIN ####[facility] [address] [place], [place] [address]Dr. Yilan ChangFUNGAL ELEMENTSOhioHealthComment on above:Performed By: #### GSTAIN ####[facility] [address] [place] [address]Dr. Yilan ChangGRAM NEG BACILLITriHealth McCullough-Hy[facility] Hospital HospitalComment on above:Performed By: #### GSTAIN ####[facility] [address] [place] [address]Dr. Yilan ChangGRAM NEG DIPPLOCOCCITriHealth McCullough-Hyde Memorial Hospital HospitalComment on above: Performed By: #### GSTAIN ####[facility] [address] [place], [place] [address]Dr. Yilan ChangGRAM POS BACILLITriHealth McCullough-Hyde Memorial Hospital HospitalComment on above:Performed By: #### GSTAIN ####[facility] [address] [place] [address]Dr. Yiquincy ChangGRAM POSITIVE COCCParkwood HospitalComment on above:Performed By: #### GSTAIN ####[facility] [address] [place] [address]Dr. Yiquincy ChangGRAM STAIN SOURCELt Foot LakeHealth Beachwood Medical CenterComment on above:Performed By: #### GSTAIN ####[facility] [address] [place] [address]Dr. Yilan ChangGS_DIPFairfield Medical Center Comment on above:Performed By: #### GSTAIN ####[facility] [address] [place] [address]Dr. Eddie ChangWBCRARENormalMccullough-Hyde Memorial HospitalComment on above:Performed By: #### GSTAIN ####[facility] [address] [place] [address]Dr. Eddie ChangLIPID PROFILE on [id number]-HDL RATIO NORMSUniversity Hospitals Ahuja Medical CenterComment on above:Result Comment: 3.3 - 4.4 LOW RISK 4.4 - 7.1 AVERAGE RISK 7.1 - 11.0 MODERATE RISK >11.0 HIGH RISKPerformed By: #### A1C #### [facility] [address] [address] [address] Eddie LernerCholesterol [Mass/Vol]137 mg/dLNormal<=200[facility] Comment on above:Performed By: #### A1C #### [facility] [address] [address] [address] Eddie LernerCholesterol in HDL [Mass/Vol]54 mg/yCSeqqae28-75NyeMccullough-Hyde Memorial HospitalComdeckerville community hospital on above:Performed By: #### A1C #### [facility] [address] [address] [address] Eddie LernerCholesterol in LDL [Mass/Vol]63.2 mg/dLOhioHealthComdeckerville community hospital on above:Performed By: #### A1C #### [facility] [address] [address] [address] Eddie LernerCholesterol.total/Cholesterol in HDL [Mass ratio]2.5 {ratio} NormalThe [facility] HospitalComment on above:Performed By: #### A1C #### [facility] [address] [address] [address] Eddie Powell NORMAL> or = 60 mg/dl - LOW CARDIOVASCULAR RISK <40 mg/dl - HIGH CARDIOVASCULAR RISKOhioHealthComment on above:Performed By: #### A1C #### [facility] [address] [address] [address] Eddie LernerLDL CALC NORMALSEE BELOWOhioHealthComment on above:Result Comment: <100 mg/dl OPTIMAL 100 - 129 mg/dl NEAR OR ABOVE OPTIMAL 130 - 159 mg/dl BORDERLINE HIGH 160 - 189 mg/dl HIGH >190 mg/dl VERY HIGH Performed By: #### A1C #### [facility] [address] [address] [address] Eddie LernerTriglyceride [Mass/Vol]99 mg/dLNormal<=150The [facility] Comment on above:Performed By: #### A1C #### [facility] [address] [address] [address] Eddie AkersLDL CALC19.8 mg/dLNoOhioHealth Grant Medical CenterComdeckerville community hospital on above: Performed By: #### A1C #### [facility] [address] [address] [address] Eddie Kirk PROFILEon 01-86-5201Nwvjnio [Mass/Vol]2.8 g/dLCritically low3.4-5.0The [facility] HospitalComment on above:Performed By: #### A1C #### [facility] [address] [address] [address] Eddie LernerAlbumin/Globulin [Mass ratio]0.6 {ratio}NormalThe [facility] HospitalComment on above:Performed By: #### A1C #### [facility] [address] [address] [address] Eddie WoodP [Catalytic activity/Vol]87 U/FHzpcml31-868Ouf Pauline HospitalComment on above:Performed By: #### A1C #### [facility] [address] [address] [address] Eddie Pagan [Catalytic activity/Vol]49 U/FSszmmd55-64Rdg [facility] HospitalComment on above:Performed By: #### A1C #### [facility] [address] [address] [address] Eddie Mills [Catalytic activity/Vol]36 U/RWhqotj98-30Lgk [facility] on above:Performed By: #### A1C #### [facility] [address] [address] [address] Eddie WatsonI, CONJUGATED0.1 mg/dLNormal0.0-0.2[facility] Comment on above:Performed By: #### A1C #### [facility] [address] [address] [address] Eddie Watsonirubin [Mass/Vol]0.4 mg/dLNormal0.2-1.0[facility] Comment on above:Performed By: #### A1C #### [facility] [address] [address] [address] Eddie LernerGlobulin (S) [Mass/Vol]4.4 g/dLNormalThe [facility] on above:Performed By: #### A1C #### [facility] [address] [address] [address] Eddie LernerProtein [Mass/Vol]7.2 g/dLNormal6.4-8.2[facility] Comment on above:Performed By: #### A1C #### [facility] [address] [address] [address] Eddie LernerCARSON [facility] GLUCOSEon 59-24-1358Hihyith [Mass/Vol]107 mg/dL Critically blso23-557SpzPremier Health on above:Performed By: #### POCGLUC #### [facility] [address] [address] [address] Eddie LernerGlucose [Mass/Vol]108 mg/dLCritically acxi90-908Ujn Pauline HospitalComment on above:Performed By: #### POCGLUC ####[facility] [address] [address]Dr. Eddie LernerTSHon 60-60-6822HZS6.247 uIU/mLNormal0.358-3.740The [facility] on above: Performed By: #### A1C #### [facility] [address] [address] [address] Eddie LernerCBC AUTO DIFFon 35-18-4267RKBS #0.0 103/ulNormal0.0-0.1The [facility] HospitalComment on above:Performed By: #### CBC ####[facility] [address] [place], [place] [address]Dr.Eddie LernerBasophils/100 WBC (Bld)0.4 %Normal0.2-2.0The [facility] on above:Performed By: #### CBC ####[facility] [address] [place], [place] [address]Dr.Eddie ChangEO #0.2 103/ulNormal0.0-0.7The [facility] HospitalComdeckerville community hospital on above:Performed By: #### CBC ####[facility] H[address]ovjt[address] [place], [place] [address]Dr.Eddie ChangEosinophils/100 WBC (Bld)2.0 %Normal 0.9-7.0The [facility] on above:Performed By: #### CBC ####[facility] Rdtsf[address] [place], [place] [address]Dr.Eddie Lerner Erythrocyte distribution width (RBC) [Ratio]14.5 %Xldofx45.0-15.0The [facility] of God Hospitalment on above:Performed By: #### CBC ####[facility] Dkotbbhsen[address] [place], [place] [address]Dr.Eddie LernerHematocrit (Bld) [Volume fraction]40.5 %Critically low42.0-54.0The [facility] of God Hospitalment on above:Performed By: #### CBC ####[facility] [address] [address]Dr.Eddie LernerHemoglobin (Bld) [Mass/Vol]13.1 g/dL Critically low14.0-18.0The [facility] HospitalComment on above:Performed By: #### CBC ####[facility] [address] [place], [place] [address]Dr. Eddie ChangIG #0.12 10e3/ulCritically high0.00-0.03The [facility] HospitalComment on above:Performed By: #### CBC ####[facility] Exsnatfu[address] [place], [place] [address]Dr.Eddie ChangIG %1.2 %Critically high0.0-0.5The [facility] HospitalComment on above:Performed By: #### CBC ####[facility] [address]wbisw[address] [place], [place] [address]Dr.Eddie LernerLYMPH #1.4 103/ulNormal1.2-3.8The [facility] HospitalComment on above:Performed By: #### CBC ####[facility] Jrgezboveq[address] [place], [place] [address]Dr. Eddie LernerLymphocytes/100 WBC (Bld)13.6 %Critically low20.5-60.0The [facility] HospitalComment on above:Performed By: #### CBC ####[facility] C[address]il[address]smb[address] [place], [place] [address]Dr.Eddie LernerMANUAL DIFF REQ NONormalThe [facility] HospitalComment on above:Performed By: #### CBC ####[facility] Labvppntup[address] [place], [place] [address]Dr. Eddie LernerMCH (RBC) [Entitic mass]29.8 igJhbvzj51.9-34.0The [facility] Comment on above:Performed By: #### CBC ####[facility] [address]zzhqmxbh[address] [place], [place] [address]Dr.Eddie YannMCHC (RBC) [Mass/Vol]32.3 g/dL Ywupzl83.9-35.2The [facility] HospitalComment on above:Performed By: #### CBC ####[facility] [address] [address]. Eddie YannMCV (RBC) [Entitic vol]92.0 mDXqkkub70.0-94.0The [facility] Comment on above:Performed By: #### CBC ####[facility] [address] [address]Dr.Eddie LernerMONO #0.5 103/ulNormal0.3-0.8 The [facility] HospitalComment on above:Performed By: #### CBC ####[facility] [address]re[address] [place], [place] [address]Dr.Dainaquincy Lerner Monocytes/100 WBC (Bld)4.8 %Normal1.7-12.0The [facility] HospitalComment on above: Performed By: #### CBC ####[facility] [address] [place], [place] [address]Dr.Eddie LernerNEUT #8.1 103/ulCritically high1.4-6.5 The [facility] HospitalComment on above:Performed By: #### CBC ####[facility] [address] [place], [place] [address]Dr.Dainaquincy Lerner Neutrophils/100 WBC (Bld)78.0 %Critically high43.0-75.0The [facility] Comment on above:Performed By: #### CBC ####[facility] Awstmlvppm[address] [place], [place] [address]Dr.Dainaquincy LernerPlatelet mean volume (Bld) [Entitic vol]8.6 fLCritically low9.5-13.5The [facility] HospitalComment on above: Performed By: #### CBC ####[facility] Reuc[address]oe[address] [place], [place] [address]Dr.Eddie LernerPLT240 103/fmZazvhk170-105Lgw [facility] HospitalComment on above:Performed By: #### CBC ####[facility] [address] [place], [place] [address]Dr.Eddie LernerRBC4.40 106/ul Critically low4.70-6.10The [facility] HospitalComment on above:Performed By: #### CBC ####[facility] [address] [address]Dr. Eddie LernerWBC10.3 103/ulNormal4.0-11.0The [facility] HospitalComment on above: Performed By: #### CBC ####[facility] [address] [address]Dr.Yilan LernerCRPon 51-43-5870LUK [Mass/Vol]mg/LNormal <=1.0The [facility] HospitalComment on above:Performed By: #### A1C #### [facility] [address] [address] [address] Eddie LernerPROF CHEM 8 (BAS METB)on 33-09-1918Hrhmx gap [Moles/Vol]14.4 mmol/LNormalThe [facility] HospitalComment on above:Performed By: #### A1C #### [facility] [address] [address] [address] Eddie LernerCalcium [Mass/Vol]9.2 mg/dLNormal8.5-10.1The [facility] Comment on above:Performed By: #### A1C #### [facility] [address] [address] [address] Eddie LernerChloride [Moles/Vol]101 mmol/QJegyjy72-597Crh [facility] Comment on above:Performed By: #### A1C #### [facility] [address] [address] [address] Eddie LernerCO2 [Moles/Vol]25.2 mmol/YOeencb68.0-32.0The [facility] Comment on above:Performed By: #### A1C #### [facility] [address] [address] [address] Eddie LernerCreatinine [Mass/Vol]3.07 mg/dLCritically high0.70-1.30The [facility] HospitalComment on above:Performed By: #### A1C #### [facility] [address] [address] [address] Morgan ChangEGFR-AF EAHFRDYN30 mL/min/1.88q8Muntxkkrby low>=60The [facility] HospitalComment on above:Performed By: #### A1C #### [facility] [address] [address] [address] Eddie OzunaGFR-NON AF EWWCUPMA53 mL/min/1.97n8Qwppedmbuw low>=60The [facility] HospitalComment on above:Performed By: #### A1C #### [facility] [address] [address] [address] Eddie LernerGlucose [Mass/Vol]415 mg/dLCritically shtf97-200Dhc [facility] HospitalComment on above:Performed By: #### A1C #### [facility] [address] [address] [address] Eddie LernerPotassium [Moles/Vol]5.6 mmol/LCritically high3.5-5.1The [facility] HospitalComment on above:Performed By: #### A1C #### [facility] [address] [place] [address] Dr. Eddie LernerSodium [Moles/Vol]135 mmol/LCritically dwg976-305Cqh [facility] HospitalComment on above:Performed By: #### A1C #### [facility] [address] [place] [address] Dr. Eddie LernerUrea nitrogen [Mass/Vol]34.0 mg/dLCritically high7.0-18.0The [facility] HospitalComment on above:Performed By: #### A1C #### [facility] [address] [place] [address] Dr. Eddei Llanes nitrogen/Creatinine [Mass ratio]11.1 mg/mgNormalThe [facility] HospitalComment on above:Performed By: #### A1C #### [facility] [address] [address] [address] Eddie Ivan RATE WESTERGRENon 26-72-1235KGU RATE59 mm/hrCritically high <=20The [facility] HospitalComment on above:Performed By: #### SEDR ####[facility] [address] [address]Dr. Eddie Graff 18-99-8055Hmyzgzlaygv peptide B (Bld) [Mass/Vol]1342.0 pg/mLCritically high <=900.0The [facility] HospitalComment on above:Performed By: #### BNP ####[facility] [address] [address]Dr.Yilan Montenegro AUTO DIFFon 93-23-5175LOUY #0.1 103/ulNormal0.0-0.1The [facility] HospitalComment on above:Performed By: #### A1C #### [facility] [address] [address] [address] Eddie LernerBasophils/100 WBC (Bld)0.6 %Normal0.2-2.0The [facility] Comment on above:Performed By: #### A1C #### [facility] [address] [place] [address] Dr. Eddie Wheeler #0.2 103/ulNormal0.0-0.7The [facility] HospitalComment on above: Performed By: #### A1C #### [facility] [address] [address] [address] Eddie Ozunaosinophils/100 WBC (Bld)1.8 %Normal0.9-7.0The [facility] Comment on above:Performed By: #### A1C #### [facility] [address] [address] [address] Eddie Ozunarythrocyte distribution width (RBC) [Ratio]15.2 %Critically high 11.0-15.0The [facility] HospitalComment on above:Performed By: #### A1C #### [facility] [address] [place] [address] Dr. Eddie LernerHematocrit (Bld) [Volume fraction]39.0 %Critically low42.0-54.0 The [facility] HospitalComment on above:Performed By: #### A1C #### [facility] [address] [place] [address] Dr. Eddie LernerHemoglobin (Bld) [Mass/Vol]12.4 g/dLCritically low14.0-18.0The [facility] HospitalComment on above:Performed By: #### A1C #### [facility] [address] [address] [address] Eddie Lowe #0.21 10e3/ulCritically high0.00-0.03The [facility] Comment on above:Performed By: #### A1C #### [facility] [address] [address] [address] Eddie Lowe %1.6 %Critically high0.0-0.5The [facility] HospitalComment on above:Performed By: #### A1C #### [facility] [address] [place] [address] Dr. Eddie Polanco #1.9 103/ulNormal1.2-3.8The [facility] HospitalComment on above:Performed By: #### A1C #### [facility] [address] [place] [address] Dr. Eddie Moranhocytes/100 WBC (Bld)13.8 %Critically low20.5-60.0The [facility] HospitalComment on above:Performed By: #### A1C #### [facility] [address] [place] [address] Dr. Eddie SullivanUAL DIFF REQNONormalThe [facility] HospitalComment on above: Performed By: #### A1C #### [facility] [address] [address] [address] Eddie Irving (RBC) [Entitic mass]27.8 qvZbdmcx78.9-34.0The [facility] HospitalComment on above:Performed By: #### A1C #### [facility] [address] [address] [address] Eddie Irving (RBC) [Mass/Vol]31.8 g/jRYkrids55.9-35.2The [facility] HospitalComment on above:Performed By: #### A1C #### [facility] [address] [place] [address] Dr. Eddie Irving (RBC) [Entitic vol]87.4 cEIwqwep98.0-94.0The [facility] HospitalComment on above:Performed By: #### A1C #### [facility] [address] [place] [address] Dr. Eddie Morton #0.8 103/ulNormal0.3-0.8The [facility] HospitalComment on above:Performed By: #### A1C #### [facility] [address] [place] [address] Dr. Eddie Williamsonocytes/100 WBC (Bld)5.9 %Normal1.7-12.0[facility] Comment on above:Performed By: #### A1C #### [facility] [address] [place] [address] Dr. Eddie Warner #10.3 103/ulCritically high1.4-6.5The [facility] Comment on above:Performed By: #### A1C #### [facility] [address] [place] [address] Dr. Eddie Menjivarutrophils/100 WBC (Bld)76.3 %Critically high43.0-75.0The [facility] HospitalComment on above:Performed By: #### A1C #### [facility] [address] [place] [address] Dr. Eddie Perez mean volume (Bld) [Entitic vol]10.2 fLNormal9.5-13.5The [facility] HospitalComment on above:Performed By: #### A1C #### [facility] [address] [place] [address] Dr. Eddie LernerPLT288 103/nmSgfhqi565-012Opa [facility] HospitalComment on above: Performed By: #### A1C #### [facility] [address] [place] [address] Dr. Eddie LernerRBC4.46 106/ulCritically low4.70-6.10The [facility] HospitalComment on above:Performed By: #### A1C #### [facility] [address] [place] [address] Dr. Eddie LernerWBC13.5 103/ulCritically high4.0-11.0[facility] on above:Performed By: #### A1C #### [facility] [address] [address] [address] Eddie LernerGLYCOHEMOGLOBIN A1Con 24-60-9961YYN RECOMMENDATIONSEE BELOWNoOhio State Health SystemComment on above:Result Comment: ADA RECOMMENDED LIMIT 4.0 - 6.0 ADA THERAPEUTIC TARGET < 7.0 ACTION SUGGESTED > 7.0Performed By: #### A1C #### [facility] [address] [place] [address] Dr. Eddie LernerGlucose [Mass/Vol]283 mg/dLNoOhioHealth Grant Medical CenterComment on above:Performed By: #### A1C #### [facility] [address] [place] [address] Dr. Eddie LernerHbA1c (Bld) [Mass fraction]11.5 %Critically high4.5-6.2The [facility] HospitalComment on above:Performed By: #### A1C #### [facility] [address] [place] [address] Dr. Eddie LernerLIPID PROFILEon [id number]-HDL RATIO NORMSEE Medina HospitalComment on above:Result Comment: 3.3 - 4.4 LOW RISK 4.4 - 7.1 AVERAGE RISK 7.1 - 11.0 MODERATE RISK >11.0 HIGH RISKPerformed By: #### RENAL, LIPID, LIVER, TSH #### [facility] [address] [place] [address] Dr. Eddie LernerCholesterol [Mass/Vol]152 mg/dLNormal<=200The [facility] Comment on above:Performed By: #### RENAL, LIPID, LIVER, TSH #### [facility] [address] [place] [address] Dr. Eddie LernerCholesterol in HDL [Mass/Vol]51 mg/tAEecwee18-04Tbi [facility] HospitalComment on above:Performed By: #### RENAL, LIPID, LIVER, TSH #### [facility] [address] [place] [address] Dr. Eddie Hernandezesterol in LDL [Mass/Vol]61.0 mg/dLThe Jewish Hospitalment on above:Performed By: #### RENAL, LIPID, LIVER, TSH #### [facility] [address] [place] [address] Dr. Eddie Hazel.total/Cholesterol in HDL [Mass ratio]3.0 {ratio} NormalThe [facility] HospitalComdeckerville community hospital on above:Performed By: #### RENAL, LIPID, LIVER, TSH #### [facility] [address] [place] [address] Dr. Eddie Powell NORMAL> or = 60 mg/dl - LOW CARDIOVASCULAR RISK <40 mg/dl - HIGH CARDIOVASCULAR RISKOhioHealthComment on above:Performed By: #### RENAL, LIPID, LIVER, TSH #### [facility] [address] [place] [address] Dr. Eddie Zheng CALC NORMALSEE BELOWOhioHealthComment on above:Result Comment: <100 mg/dl OPTIMAL 100 - 129 mg/dl NEAR OR ABOVE OPTIMAL 130 - 159 mg/dl BORDERLINE HIGH 160 - 189 mg/dl HIGH >190 mg/dl VERY HIGH Performed By: #### RENAL, LIPID, LIVER, TSH #### [facility] [address] [place] [address] Dr. Eddie LernerTriglyceride [Mass/Vol]200 mg/dLCritically high<=150The [facility] on above:Performed By: #### RENAL, LIPID, LIVER, TSH #### [facility] [address] [place] [address] Dr. Eddie AkersLDL CALC40.0 mg/dLOhioHealthComdeckerville community hospital on above: Performed By: #### RENAL, LIPID, LIVER, TSH #### [facility] [address] [place] [address] Dr. Eddie Kirk PROFILEon 26-99-0290Tzvvlab [Mass/Vol]2.6 g/dLCritically low3.4-5.0The [facility] HospitalComdeckerville [facility] hospital on above:Performed By: #### RENAL, LIPID, LIVER, TSH #### [facility] [address] [address] [address] Eddie LernerAlbumin/Globulin [Mass ratio]0.6 {ratio}NormalThe St. [facility] of [facility] Hospitalment on above:Performed By: #### RENAL, LIPID, LIVER, TSH #### [facility] [address] [address] [address] Eddie Bower [Catalytic activity/Vol]120 U/LCritically xqtk08-738Uew St. [facility] of [facility] Hospitalment on above:Performed By: #### RENAL, LIPID, LIVER, TSH #### [facility] [address] [address] [address] Eddie Pagan [Catalytic activity/Vol]22 U/FIbvzgt67-53Dsj [facility] Hospitalment on above:Performed By: #### RENAL, LIPID, LIVER, TSH #### [facility] [address] [address] [address] Eddie LernerAST [Catalytic activity/Vol]15 U/VRngljd89-73Xnm [facility] HospitalComment on above:Performed By: #### RENAL, LIPID, LIVER, TSH #### [facility] [address] [address] [address] Eddie Pandey, CONJUGATED0.1 mg/dLNormal0.0-0.2The [facility] Comment on above:Performed By: #### RENAL, LIPID, LIVER, TSH #### [facility] [address] [address] [address] Eddie Watsonirubin [Mass/Vol]0.3 mg/dLNormal0.2-1.0The [facility] Comment on above:Performed By: #### RENAL, LIPID, LIVER, TSH #### [facility] [address] [address] [address] Eddie LernerGlobulin (S) [Mass/Vol]4.7 g/dLNormalThe [facility] HospitalComment on above:Performed By: #### RENAL, LIPID, LIVER, TSH #### [facility] [address] [address] [address] Eddie LernerProtein [Mass/Vol]7.3 g/dLNormal6.4-8.2The [facility] Comment on above:Performed By: #### RENAL, LIPID, LIVER, TSH #### [facility] [address] [address] [address] Eddie BrinkAL FUNCTION PANELon 23-34-5332Rejvklm [Mass/Vol]9.0 mg/dL Normal8.5-10.1The [facility] HospitalComment on above:Performed By: #### RENAL, LIPID, LIVER, TSH #### [facility] [address] [address] [address] Eddie LernerChloride [Moles/Vol]96 mmol/LCritically kkq24-612Hkg [facility] HospitalComment on above:Performed By: #### RENAL, LIPID, LIVER, TSH #### [facility] [address] [address] [address] Eddie LernerCO2 [Moles/Vol]21.8 mmol/ZElvygo66.0-32.0The [facility] Comment on above:Performed By: #### RENAL, LIPID, LIVER, TSH #### [facility] [address] [address] [address] Eddie LernerCreatinine [Mass/Vol]2.38 mg/dLCritically high0.70-1.30The [facility] HospitalComment on above:Performed By: #### RENAL, LIPID, LIVER, TSH #### [facility] [address] [address] [address] Morgan ChangEGFR-AF PHNZKXEQ37 mL/min/1.69q7Zhwzmsnkur low>=60The [facility] HospitalComment on above:Performed By: #### RENAL, LIPID, LIVER, TSH #### [facility] [address] [address] [address] Morgan ChangEGFR-NON AF NCLABRNZ85 mL/min/1.17c3Bpvcsdpkia low>=60The [facility] HospitalComment on above:Performed By: #### RENAL, LIPID, LIVER, TSH #### [facility] [address] [address] [address] Eddie LernerGlucose [Mass/Vol]523 mg/dLCritically ysuk25-846Ykq [facility] HospitalComment on above:Performed By: #### RENAL, LIPID, LIVER, TSH #### [facility] [address] [address] [address] Eddie LernerPhosphate [Mass/Vol]4.1 mg/dLNormal2.6-4.7The [facility] Comment on above:Performed By: #### RENAL, LIPID, LIVER, TSH #### [facility] [address] [address] Dr. Eddie LernerPotassium [Moles/Vol]4.6 mmol/LNormal3.5-5.1The [facility] Comment on above:Performed By: #### RENAL, LIPID, LIVER, TSH #### [facility] [address] [place] [address] Dr. Eddie LernerSodium [Moles/Vol]128 mmol/LCritically kmt846-727Qgw [facility] HospitalComment on above:Performed By: #### RENAL, LIPID, LIVER, TSH #### [facility] [address] [place] [address] Dr. Eddie Llanes nitrogen [Mass/Vol]28.0 mg/dLCritically high7.0-18.0The [facility] HospitalComment on above:Performed By: #### RENAL, LIPID, LIVER, TSH #### [facility] [address] [place] [address] Dr. Eddie Summers 36-91-4673SLF6.308 uIU/mLNormal0.358-3.740The [facility] HospitalComment on above:Performed By: #### RENAL, LIPID, LIVER, TSH #### [facility] [address] [place] [address] Dr. Eddie Max 01-77-3981Awxvidtfz Ql (U)NegativeNormalNEGATIVEThe [facility] HospitalComment on above:Performed By: #### UA #### [facility] [address] [place] [address] Dr. Eddie LernerClarity (U)CLEARNormalCLEARThe [facility] HospitalComment on above: Performed By: #### UA #### [facility] [address] [address] [address] Eddie Espinallor (U)LT. YELLOWNormalYELLOWMccullough-Hyde Memorial HospitalComment on above:Performed By: #### UA #### [facility] [address] [address] [address] Eddie LernerGlucose Ql (U)>1000AbnormalNEGATIVEThe [facility] HospitalComment on above:Performed By: #### UA #### [facility] [address] [place] [address] Dr. Eddie LernerHemoglobin Ql (U)TRACE-INTACTAbnormalNEGATIVEMccullough-Hyde Memorial HospitalComment on above:Performed By: #### UA #### [facility] [address] [place] [address] Dr. Eddie Mcknightones Ql (U)NegativeNormalNEGATIVEMccullough-Hyde Memorial HospitalComment on above:Performed By: #### UA #### [facility] [address] [address] [address] Eddie LernerLEUKOCYTESNegativeNormalNEGATIVEMccullough-Hyde Memorial HospitalComment on above:Performed By: #### UA #### [facility] [address] [place] [address] Dr. Eddie LernerNitrite Ql (U)NegativeNormalNEGATIVEMccullough-Hyde Memorial HospitalComment on above:Performed By: #### UA #### [facility] [address] [place] [address] Dr. Eddie LernerpH (U)6.5 [pH]Normal5-9The [facility] HospitalComment on above: Performed By: #### UA #### [facility] [address] [address] [address] Eddie LernerSPEC GRAVITY1.299Dcauyb6.005-<=1.025The [facility] HospitalComment on above:Performed By: #### UA #### [facility] [address] [place] [address] Dr. Eddie Marino FWSEPJG394 mg/dlAbnormalNEGATIVE/ TRACEThe [facility] Comment on above:Performed By: #### UA #### [facility] [address] [place] [address] Dr. Eddie Morgan Qn (U)0.2 {Chaya'U}/dLNormal0.2 - 1.0Mccullough-Hyde Memorial HospitalComment on above:Performed By: #### UA #### [facility] [address] [address] [address] Eddie LernerVITAMIN D 25 OHon 19-58-6143PCZ D 25-OH13.9 ng/mLNormalThe [facility] HospitalComment on above:Performed By: #### VITAD ####[facility] [address] [place], [place] [address]Dr. Eddie LernerVIT D RANGES SEE Medina HospitalComment on above:Result Comment: <20 ng/mL Vit D deficient 20 - <30 ng/mL Vit D insufficient 30 - 100 ng/mL Vit D sufficient >100 ng/mL Potential ToxicityPerformed By: #### VITAD ####[facility] U[address] [place], [place] [address]Dr. Eddie LernerACID FAST SMEAR AND CXon 32-91-0003Wrvq Fast CultureNegativeOhioHealthComment on above:Result Comment: No acid fast bacilli isolated after 6 weeks.Performed By: #### AFB ####[facility] [address] [place], [place] [address]Dr.Eddie LernerAcid Fast SmearNegativeOhioHealthComment on above:Performed By: #### AFB ####[facility] [address] [place], [place] [address]Dr.Eddie LernerAFB Specimen ProcessingTissue GrHenry County HospitalComdeckerville community hospital on above:Performed By: #### AFB ####[facility] [address] [place], [place] [address]Dr.Eddie LernerFUNGAL CULTUREon 57-02-9076Ulkbgl (Mycology) CultureFinal reportNoOhioHealth Grant Medical CenterComment on above:Performed By: #### RENAL, LIPID, LIVER, TSH #### [facility] [address] [address] [address] Eddie Walker StainFinal reportOhioHealthComment on above:Performed By: #### RENAL, LIPID, LIVER, TSH #### [facility] [address] [address] [address] Eddie Sutton 1CommentOhioHealthComment on above:Result Comment: ANNEMARIE/Calcofluor preparation: no fungus observed.Performed By: #### RENAL, LIPID, LIVER, TSH #### [facility] [address] [address] [address] Eddie Sutton Comment: No yeast or mold isolated after 4 weeks.POINT OF CARE GLUCOSEon 12-25-6378Bmsombn [Mass/Vol]177 mg/dLCritically ovmf13-519Vlx [facility] HospitalComment on above:Performed By: #### A1C #### [facility] [address] [address] [address] Eddie LernerGlucose [Mass/Vol]200 mg/dLCritically nafy18-364LuvMccullough-Hyde Memorial HospitalComment on above:Performed By: #### POCGLUC ####[facility] [address] [address]Dr. Eddie LernerCovid-19 PCR ([facility]VDBOSTON [facility]OPE [facility])on 38-79-5621WXYZ-CoV-2 (COVID-19) RNA SUDHA+probe Ql (Unsp spec)Not detectedNormalNOT DETECTEDThe [facility] on above:Result Comment: This test is not yet approved or cleared by the [place] FDA. When there are no FDA-approved or cleared tests available, and other criteria are met, FDA can make tests available under an emergency access mechanism called an Emergency Use Authorization (EUA). The EUA for this test is supported by the [employer] of Health and Human Service's (HHS's) declaration [...] consistent with SARS-CoV-2.Performed By: #### A1C #### [facility] [address] [place] [address] Dr. Eddie LernerPROF CHEM 8 (BAS METB)on 84-75-5081Leewu gap [Moles/Vol]15.0 mmol/LNormalMccullough-Hyde Memorial HospitalComment on above:Performed By: #### RENAL, LIPID, LIVER, TSH #### [facility] [address] [place] [address] Dr. Eddie LernerCalcium [Mass/Vol]9.3 mg/dLNormal8.5-10.1[facility] Comment on above:Performed By: #### RENAL, LIPID, LIVER, TSH #### [facility] [address] [place] [address] Dr. Eddie LernerChloride [Moles/Vol]105 mmol/ZWvnpas46-761SlnMccullough-Hyde Memorial Hospital Comment on above:Performed By: #### RENAL, LIPID, LIVER, TSH #### [facility] [address] [place] [address] Dr. Eddie LernerCO2 [Moles/Vol]22.1 mmol/YZyqbko34.0-32.0[facility] Comment on above:Performed By: #### RENAL, LIPID, LIVER, TSH #### [facility] [address] [place] [address] Dr. Eddie LernerCreatinine [Mass/Vol]2.29 mg/dLCritically high0.70-1.30The [facility] HospitalComment on above:Performed By: #### RENAL, LIPID, LIVER, TSH #### [facility] [address] [place] [address] Dr. Morgan ChangEGFR-AF GUETIQXF70 mL/min/1.60i4Adrxozdepd low>=60The [facility] HospitalComment on above:Performed By: #### RENAL, LIPID, LIVER, TSH #### [facility] [address] [address] [address] Morgan ChangEGFR-NON AF EUAMCELS46 mL/min/1.62v4Cgdcfjfscd low>=60The [facility] HospitalComment on above:Performed By: #### RENAL, LIPID, LIVER, TSH #### [facility] [address] [address] [address] Eddie LernerGlucose [Mass/Vol]115 mg/dLCritically muwo97-511Szm [facility] HospitalComment on above:Performed By: #### RENAL, LIPID, LIVER, TSH #### [facility] [address] [address] [address] Eddie LernerPotassium [Moles/Vol]5.1 mmol/LNormal3.5-5.1[facility] Comment on above:Performed By: #### RENAL, LIPID, LIVER, TSH #### [facility] [address] [address] [address] Eddie LernerSodium [Moles/Vol]137 mmol/RUghxtm472-259Gcu [facility] Comment on above:Performed By: #### RENAL, LIPID, LIVER, TSH #### [facility] [address] [address] [address] Eddie LernerUrea nitrogen [Mass/Vol]26.0 mg/dLCritically high7.0-18.0The [facility] HospitalComment on above:Performed By: #### RENAL, LIPID, LIVER, TSH #### [facility] [address] [address] [address] Eddie Llanes nitrogen/Creatinine [Mass ratio]11.4 mg/mgNoOhioHealth Grant Medical CenterComment on above:Performed By: #### RENAL, LIPID, LIVER, TSH #### [facility] [address] [address] [address] Eddie Stover CULTUREon 13-95-8822Zkghcvcjy Culture, Extended Incubation Final reportNoOhioHealth Grant Medical CenterComment on above:Performed By: #### CXTISSU ####[facility] [address] [address]Dr. Eddie Sutton [address] [place], [place] [address]Comment on above: Result Comment: Diphtheroids, not Corynebacterium jeikeium Light growth Susceptibility not normally performed on this organism.Performed By: #### CXTISSU ####[facility] [address] [id number]. Eddie Hilarioult Comment: No anaerobes recovered.Tissue CultureFinal reportAdams County Regional Medical CenterComment on above:Performed By: #### CXTISSU ####[facility] [address] [address]Dr. Eddie LernerMORGAN MEDICAL [facility] GLUCOSEon 37-89-4681Yhqgowm [Mass/Vol]89 mg/dLNormal 74-106M[facility]ull[facility]-Hyde Memorial HospitalComment on above:Performed By: #### RENAL, LIPID, LIVER, TSH #### [facility] [address] [address] [address] Eddie LernerGlucose [Mass/Vol]85 mg/sUCfpgya00-856ScnMccullough-Hyde Memorial Hospital Comment on above:Performed By: #### POCGLUC ####[facility] [address] [address]Dr. Eddie Newman STAINon 12-21-2021 COMMENTSNO [facility] HospitalComdeckerville community hospital on above: Performed By: #### RENAL, LIPID, LIVER, TSH #### [facility] [address] [address] [address] Eddie OliveraPHTHEROIDSOhioHealthComment on above:Performed By: #### RENAL, LIPID, LIVER, TSH #### [facility] [address] [address] [address] Eddie ClaytonALSOhioHealthComdeckerville community hospital on above:Performed By: #### RENAL, LIPID, LIVER, TSH #### [facility] [address] [address] [address] Eddie Slaughter ELEMENTSOhioHealthComment on above: Performed By: #### RENAL, LIPID, LIVER, TSH #### [facility] [address] [address] [address] Eddie Newman NEG BACILLIOhioHealthComment on above: Performed By: #### RENAL, LIPID, LIVER, TSH #### [facility] [address] [address] [address] Eddie Newman NEG DIPPLOCOCCIOhioHealthComdeckerville community hospital on above: Performed By: #### RENAL, LIPID, LIVER, TSH #### [facility] [address] [address] [address] Eddie Newman POS BACILLIOhioHealthComdeckerville community hospital on above: Performed By: #### RENAL, LIPID, LIVER, TSH #### [facility] [address] [address] [address] Eddie Newman POSITIVE COCCINoOhioHealth Grant Medical CenterComment on above: Performed By: #### RENAL, LIPID, LIVER, TSH #### [facility] [address] [address] [address] Eddie Newman STAIN SOURCELt 1st Metatarsal BoneOhioHealthComment on above:Performed By: #### RENAL, LIPID, LIVER, TSH #### [facility] [address] [address] [address] Eddie Morales_DIPTHOhioHealthComdeckerville community hospital on above:Performed By: #### RENAL, LIPID, LIVER, TSH #### [facility] [address] [address] [address] Eddie MorleyBCRARENormalMccullough-Hyde Memorial HospitalComdeckerville community hospital on above:Performed By: #### RENAL, LIPID, LIVER, TSH #### [facility] [address] [address] [address] Eddie LernerMORGAN MEDICAL [facility]ENTER GLUCOSEon 19-42-9423Hwmkkbr [Mass/Vol]148 mg/dL Critically oybq44-470KxuMccullough-Hyde Memorial HospitalComment on above:Performed By: #### A1C #### [facility] [address] [address] [address] Eddie LernerGlucose [Mass/Vol]100 mg/bAHaatob25-897Sjv [facility] Comment on above:Performed By: #### POCGLUC ####[facility] [address] [place], [place] [address]Qe. Eddie ChangGlucose [Mass/Vol]85 mg/dL Kyzkuq04-428QryMccullough-Hyde Memorial HospitalComment on above:Performed By: #### POCGLUC ####[facility] [address] [place], [place] [address]Cl. Eddie ChangGlucose [Mass/Vol]83 mg/zNWhjcvo68-770ZwvMccullough-Hyde Memorial HospitalComment on above:Performed By: #### RENAL, LIPID, LIVER, TSH #### [facility] [address] [place], [place] [address] Dr. Eddie LernerCovid-19 PCR (CVDTB)on 08-18-6047LQOL-CoV-2 (COVID-19) RNA SUDHA+probe Ql (Unsp spec)Not detectedNormalNOT DETECTEDMccullough-Hyde Memorial Hospital Comment on above:Result Comment: This test is not yet approved or cleared by the [place] FDA. When there are no FDA-approved or cleared tests available, and other criteria are met, FDA can make tests available under an emergency access mechanism called an Emergency Use Authorization (EUA). The EUA for this test is supported by the [place] of Health and Human Service's (HHS's) declaration [...] symptoms consistent with SARS-CoV-2.Performed By: #### CVDTBH ####[facility] [address] [place], [place] [address]WbVaishali LernerPROF CHEM 8 (BAS METB)on 47-51-7637Xfpos gap [Moles/Vol]11.5 mmol/LNormalMccullough-Hyde Memorial HospitalComment on above:Performed By: #### RENAL, LIPID, LIVER, TSH #### [facility] [address] [address] [address] Eddie LernerCalcium [Mass/Vol]9.0 mg/dLNormal8.5-10.1[facility] Comment on above:Performed By: #### RENAL, LIPID, LIVER, TSH #### [facility] [address] [address] [address] Eddie LernerChloride [Moles/Vol]102 mmol/POtmmha04-976Ylq [facility] Comment on above:Performed By: #### RENAL, LIPID, LIVER, TSH #### [facility] [address] [address] [address] Eddie LernerCO2 [Moles/Vol]24.8 mmol/KOefmqf47.0-32.0[facility] Comment on above:Performed By: #### RENAL, LIPID, LIVER, TSH #### [facility] [address] [place] [address] Dr. Eddie LernerCreatinine [Mass/Vol]2.19 mg/dLCritically high0.70-1.30The [facility] HospitalComment on above:Performed By: #### RENAL, LIPID, LIVER, TSH #### [facility] [address] [place] [address] Dr. Morgan ChangEGFR-AF KZRZHVPB10 mL/min/1.89f5Vdvrbnpvjo low>=60The [facility] HospitalComment on above:Performed By: #### RENAL, LIPID, LIVER, TSH #### [facility] [address] [place] [address] Dr. Morgan ChangEGFR-NON AF ZNINUNTC00 mL/min/1.32s4Hkkokuovog low>=60The [facility] HospitalComment on above:Performed By: #### RENAL, LIPID, LIVER, TSH #### [facility] [address] [place] [address] Dr. Eddie LernerGlucose [Mass/Vol]330 mg/dLCritically zinz29-924Ane [facility] HospitalComment on above:Performed By: #### RENAL, LIPID, LIVER, TSH #### [facility] [address] [address] [address] Eddie LernerPotassium [Moles/Vol]5.3 mmol/LCritically high3.5-5.1The [facility] HospitalComment on above:Performed By: #### RENAL, LIPID, LIVER, TSH #### [facility] [address] [address] [address] Eddie LernerSodium [Moles/Vol]133 mmol/LCritically ues638-957Trt [facility] HospitalComment on above:Performed By: #### RENAL, LIPID, LIVER, TSH #### [facility] [address] [address] [address] Eddie LernerUrea nitrogen [Mass/Vol]25.0 mg/dLCritically high7.0-18.0The [facility] HospitalComment on above:Performed By: #### RENAL, LIPID, LIVER, TSH #### [facility] [address] [address] [address] Eddie Llanes nitrogen/Creatinine [Mass ratio]11.4 mg/mgNormalThe [facility] HospitalComment on above:Performed By: #### RENAL, LIPID, LIVER, TSH #### [facility] [address] [address] [address] Eddie LernerAlbumin [Mass/volume] in Serum or Plasmaon 67-13-1095Eqnycge [Mass/Vol]2.0 g/dL3.2-5.5FUniversity Hospitals St. [facility] CtrBasophils Auto (Bld) [#/Vol]on 27-45-8952Rsjsggodd (Bld) [#/Vol]0.0 10*3/uL0.0-0.2FUniversity Hospitals St. John Medical Center CtrBasophils/100 WBC Auto (Bld)on 98-99-1702Kaprhmssv/100 WBC (Bld)0.1 % [facility] CtrBlood anisocytosis detectionon 08-25-2020 Anisocytosis Ql (Bld)SlightVeterans Health Administration CtrBlood hemoglobin measurement (mass/volume)on 92-43-4781Rqrkwblpny (Bld) [Mass/Vol]10.1 g/dL 13.0-17.0[facility] CtrBlood leukocytes automated count (number/volume)on 19-31-4772NOY (Bld) [#/Vol]12.6 10*3/uL4.5-11.0[facility] CtrBlood polychromasia detection by light microscopyon 93-91-3141Drmhkezxagnlc LM Ql (Bld)SlightVeterans Health Administration Ctr Creatinine and Glomerular filtration rate.predicted panel (S/P/Bld)on 08-25-2020 Creatinine [Mass/Vol]4.06 mg/dL0.64-1.27[facility] Eosinophils Auto (Bld) [#/Vol]on 55-70-3333Xsecwcnrvka (Bld) [#/Vol]0.0 10*3/uL 0.0-0.45[facility] CtrEosinophils/100 WBC Auto (Bld)on 28-92-7376Ozkduljplxj/100 WBC (Bld)0.1 %[facility]tr Erythrocyte distribution width Auto (RBC) [Ratio]on 76-71-5763Dzzcajednif distribution width (RBC) [Ratio]16.6 %12.0-14.8[facility] Estimated glomerular filtration rate (GFR) non- Americanon 08-25-2020 GFR/1.73 sq M.predicted among non-blacks MDRD (S/P/Bld) [Vol rate/Area]15 mL/Min [facility] CtrGlucose Glucometer (BldC) [Mass/Vol]on 08-25-2020 Glucose [Mass/Vol]122 mg/dLVeterans Health Administration CtrComment on above:Random Glucose Reference Range is dependent on time and content of last meal. Glucose of more than 200 mg/dL in a nonstressed, ambulatory subject supports the diagnosis of Diabetes Mellitus.Hematocrit Auto (Bld) [Volume fraction]on 33-60-1545Ihdfcfybsi (Bld) [Volume fraction]31.7 %38.8-50.0[facility] CtrLaboratory - Hematology and Cell countson 58-06-0814Mxuycloeh RBC/100 WBC (Bld) [Ratio]0.2 %0-0.5FUniversity Hospitals St. John Medical Center CtrLymphocytes Auto (Bld) [#/Vol]on 60-77-0237Gdimhddrust (Bld) [#/Vol]1.1 10*3/uL1.00-4.8[facility] CtrLymphocytes/100 WBC Auto (Bld)on 03-86-3520Wkdtxgeedaz/100 WBC (Bld)8.9 %[facility] CtrMCH Auto (RBC) [Entitic mass]on 84-98-5116DVZ (RBC) [Entitic mass]26.2 pg27.5-35.2FUniversity Hospitals TriPoint [facility] Center MCHC Auto (RBC) [Mass/Vol]on 05-97-4653SBEZ (RBC) [Mass/Vol]31.9 g/dL32.5-35.6 [facility] SystemMCV Auto (RBC) [Entitic vol]on 09-14-1491TRW (RBC) [Entitic vol]82.3 fL83.5-101[facility] CtrMonocytes Auto (Bld) [#/Vol]on 69-27-2082Ivaigpqrc (Bld) [#/Vol]1.2 10*3/uL0.0-0.8[facility] CtrMonocytes/100 WBC Auto (Bld)on 47-06-8416Efqacqspd/100 WBC (Bld)9.6 % [facility] CtrNeutrophils Auto (Bld) [#/Vol]on 08-25-2020 Neutrophils (Bld) [#/Vol]10.2 10*3/uL1.8-7.7FUniversity Hospitals St. John [facility] Center Ctr Neutrophils/100 WBC Auto (Bld)on 56-15-5585Makuhotdzwj/100 WBC (Bld)81.3 % [facility] CtrNo Panel Informationon 63-97-6037Tzgtdiz Glucose CommentGlu2: cleaned meterVeterans Health Administration CtrEstimated GFR ()18 mL/MinVeterans Health Administration CtrComment on above:GFR estimated reference range: According to KDOQI guidelines, <60 ml/min/1.73m2 is sufficient todiagnose a patient with chronic kidney disease.Pharmacy Creatinine Clearance (Chem31.84[facility] CtrPlatelet EstimateNormalNormalVeterans Health [facility] CtrPlatelet Morphology CommentNormalNormalVeterans Health Administration CtrPhosphate [Mass/volume] in Serum or Plasmaon 45-03-7662Yubjnvkyv [Mass/Vol]5.3 mg/dL2.5-4.6FUniversity Hospitals St. John Medical Center CtrPlatelet mean volume Auto (Bld) [Entitic vol]on 05-28-7548Ogbnshob mean volume (Bld) [Entitic vol]7.1 fL6.6-10.1FUniversity Hospitals St. John Medical Center CtrPlatelets Auto (Bld) [#/Vol]on 74-03-3053Ecdskaaht (Bld) [#/Vol]388 10*3/uM513-532CqcipklxyVeterans Health Administration CtrRBC Auto (Bld) [#/Vol]on 43-16-3313BNN (Bld) [#/Vol]3.85 10*6/uL3.90-5.60 [facility] Healthcare SystemRBC morphologyon 94-76-9947UKI morphology finding Nom (Bld)N/AFUniversity Hospitals St. John [facility] Center CtrSerum or plasma calcium measurement (mass/volume)on 75-42-8200Rwopkil [Mass/Vol]8.7 mg/dL8.2-10.2FUniversity Hospitals St. John Medical Center CtrSerum or plasma chloride measurement (moles/volume)on 08-25-2020 Chloride [Moles/Vol]99 mmol/O86-686QknihuotoVeterans Health Administration CtrSerum or plasma glucose measurement (mass/volume)on 22-81-1123Tmxgjxy [Mass/Vol]113 mg/cI10-266 [facility] CtrComment on above:ADA recommended reference rangeRandom Glucose Reference Range is dependent on time and content of last meal. Glucose of more than 200 mg/dL in a nonstressed, ambulatory subject supports the diagnosisof Diabetes Mellitus.Serum or plasma potassium measurement (moles/volume)on 66-97-5601Vpqlixfir [Moles/Vol]4.6 mmol/L3.5-5.1FUniversity Hospitals St. John Medical Center CtrSerum or plasma sodium measurement (moles/volume)on 67-47-4250Dauptq [Moles/Vol]135 mmol/L261-934UlxjplejjVeterans Health Administration CtrSerum or plasma total carbon dioxide measurement (moles/volume)on 18-30-9086WR0 [Moles/Vol]26.2 mmol/L22.0-30.0[facility] CtrSerum or plasma urea nitrogen measurement (mass/volume)on 66-48-2050Iwoz nitrogen [Mass/Vol]75 mg/dL9-23[facility] CtrErythrocyte basophilic stippling detectionon 86-89-0605Mjlpydcfam stippling LM Ql (Bld)SlightVeterans Health Administration CtrLaboratory - Hematology and Cell countson 10-98-1713Psec form neutrophils/100 WBC (Bld)1 %0-5FUniversity Hospitals St. John Medical Center CtrLymphocytes/100 WBC Auto (Bld)on 25-88-0596Shwnbthhlix/100 WBC (Bld)6 %18-42[facility] CtrMetamyelocytes/100 WBC Manual cnt (Bld)on 08-24-2020 Metamyelocytes/100 WBC (Bld)1 %0-0[facility] CtrMonocytes/100 WBC Manual cnt (Bld)on 56-26-1450Yjgkbgsbk/100 WBC (Bld)4 %2-11[facility] CtrMyelocytes/100 WBC Manual cnt (Bld)on 08-24-2020 Myelocytes/100 WBC (Bld)1 %0-0[facility] CtrNo Panel Information on 80-74-4707HpvmhglXhlvbsCeyoqgsjr Regional Medical CtrSegmented neutrophils/100 WBC Manual cnt (Bld)on 13-10-2091Ugmcytdwd neutrophils/100 WBC (Bld)87 %50-70[facility] CtrNo Panel Informationon 08-23-2020 Bedside Glucose #[address]/[facility] CtrBedside Glucose #3 CommentCleaned meterVeterans Health Administration CtrSerum nuclear antibody titeron 32-38-9376Zyduaab Ab (S) [Titer]NegativeVeterans Health Administration CtrComment on above:Negative <1:80 Borderline 1:80 Positive >1:80Performed at: - [facility] [id number] Director: Mata Brian PhD, Phone: [phone] or plasma rheumatoid factor measurement (units/volume)on 65-52-6449Gchvsogrci factor Qn20.6 [IU]/mL [facility] CtrComment on above:Performed at: - [facility] [id number] Director: Mata Brian PhD, Phone: [phone] biopsyon 99-50-5976Jpzhphfbpja [Mass/Vol]104 mg/mX468-276 [facility] CtrFerritin [Mass/volume] in Serum or Plasmaon 64-40-7766Dpamqvrl [Mass/Vol]334.8 ng/mL23.9-336.2FUniversity Hospitals St. [facility] Ctr Iron [Mass/volume] in Serum or Plasmaon 78-92-8836Hrvv [Mass/Vol]17 ug/mE95-757 [facility] CtrIron binding capacity [Mass/volume] in Serum or Plasmaon 55-08-4703Megz binding capacity [Mass/Vol]146 ug/bS458-860UovphbuqkVeterans Health Administration CtrIron saturation [Mass Fraction] in Serum or Plasmaon 17-90-7820Ljnf saturation [Mass fraction]11.0 %20-50[facility] CtrCreatine kinase [Enzymatic activity/volume] in Serum or Plasmaon 74-62-9246RQ [Catalytic activity/Vol]45 U/Z31-442EuzqxrojqVeterans Health Administration CtrNo Panel Informationon 05-74-9129Ohvqp BodiesSlightVeterans Health Administration CtrSerum or plasma cardiac troponin I measurement (mass/volume)on 12-31-2952Thuaizkm I.cardiac [Mass/Vol]ng/mL0-0.02[facility] CtrComment on above: HÉCTOR [place] Cut off value > or equal to 0.03 ng/mL in conjunction with clinical conditions of myocardial infarction.(www.escardio.org/guidelines)Serum or plasma creatine kinase MB (CKMB)/total creatine kinase (CK) ratio by calculaon 39-04-3802GM.MB Calc [Catalytic fraction]5.1 %0.00-2.50[facility] CtrSerum or plasma creatine kinase MB measurement (mass/volume)on 10-94-9528AY.MB [Mass/Vol]2.3 ng/mL0.6-6.3FUniversity Hospitals St. [facility] Ctr Erythrocyte sedimentation rate by Photometric methodon 47-47-9777RSY Photometric method (Bld) [Velocity]108 mm/hr0-19[facility] CtrSerum or plasma C reactive protein measurement (mass/volume)on 44-64-2978FEJ [Mass/Vol] 19.4 mg/dL0.0-1.0[facility] CtrABO and Rh group post transfusion reaction Nom (Bld)on 90-49-4182Neccsjladxu observation Gram stain Nom (Unsp spec)[facility] CtrGlucose mean value [Mass/volume] in Blood Estimated from glycated hemoglobinon 94-08-4916[place]udlv[place] glucose Estimated from glycated hemoglobin (Bld) [Mass/Vol]298 mg/dLVeterans Health Administration Ctr Hemoglobin A1c percentageon 83-48-3175YfO8y (Bld) [Mass fraction]12.0 %4.3-5.6 [facility] CtrComment on above:Increased risk for diabetes: 5.7 - 6.4diabetes: >6.4glycemic control for adults with diabetes: <7.0Laboratory - Chemistry and Chemistry - challengeon 58-76-0182Euwxzljel [Mass/Vol]2.0 mg/dL 1.6-2.6FUniversity Hospitals St. John [facility] Center CtrNo Panel Informationon 554451-Jsctsfn Vitamin D Total24.6 ng/uY47-769RgvtaijycVeterans Health Administration CtrComment on above: VITAMIN D STATUS 25(OH)VITAMIN D RANGE (ng/mL) Deficient <20 Insufficient 20 to <58Mztwprfkrt63 to 100Reference: Aki MF,Oriana NGUYEN, Elli JONAS, et al. Evaluation,treatment, and prevention of vitamin D deficiency; an Endocrine Society clinical practice guideline. JCEM. 2010; 96(7):1911-30.Activated partial thromboplastin time (aPTT) in platelet poor plasma by coagulation aon 76-31-6014fSLN Coag (PPP) [Time]36.9 s25.1-36.5FUniversity Hospitals St. [facility] Ctr Albumin [Mass/volume] in Serum or Plasmaon 77-17-7286Focchcb [Mass/Vol]2.7 g/dL 3.2-5.5FUniversity Hospitals St. John Medical Center CtrBacterial blood cultureon 08-18-2020 Bacteria identified Cx Nom (Bld)NO GROWTH 5 DAYSVeterans Health Administration Ctr Basophils Auto (Bld) [#/Vol]on 79-32-1930Uprsmjlbd (Bld) [#/Vol]0.0 10*3/uL 0.0-0.2FUniversity Hospitals St. John Medical Center CtrBasophils/100 WBC Auto (Bld)on 08-18-2020 Basophils/100 WBC (Bld)0.3 %[facility] CtrBeta-hydroxybutyric acid measurementon 48-46-9246Mhat hydroxybutyrate [Mass/Vol]0.44 mmol/L0.02-0.27 [facility] CtrBlood hemoglobin measurement (mass/volume)on 01-62-3564Ksvbemimdv (Bld) [Mass/Vol]11.8 g/dL13.0-17.0[facility] SystemBlood leukocytes automated count (number/volume)on 84-56-9011AIA (Bld) [#/Vol]15.3 10*3/uL4.5-11.0[facility] CtrCOVID-19 Detected/Not Detectedon 36-93-4856DBPZ-CoV-2 (COVID-19) RNA SUDHA+non-probe Ql (Nph)Not detectedNot DetecteFUniversity Hospitals St. John Medical Center CtrComment on above:This is a duplicate RP2.1 COVID (PCR) result to be used for statistical tracking purpose only.COVID-19 SOFIAon 80-11-4642FJHM-CoV+SARS-CoV-2 (COVID-19) Ag IA.rapid Ql (Resp)NegativeNegativeVeterans Health Administration CtrComment on above:This is a duplicate Ayah SARS Antigen (AGUSTINA) result to be used for statistical tracking purpose only.Creatinine and Glomerular filtration rate.predicted panel (S/P/Bld)on 68-50-7833Vxuhaprovk [Mass/Vol]3.04 mg/dL 0.64-1.27[facility] CtrEosinophils Auto (Bld) [#/Vol]on 82-73-2211Rtuoxagjvtn (Bld) [#/Vol]0.5 10*3/uL0.0-0.45[facility] CtrEosinophils/100 WBC Auto (Bld)on 03-36-3271Dnewymnovvv/100 WBC (Bld)3.4 % [facility] CtrErythrocyte distribution width Auto (RBC) [Ratio] on 57-72-0195Xlmkfpkkqmg distribution width (RBC) [Ratio]16.3 %12.0-14.8 [facility] CtrEstimated glomerular filtration rate (GFR) non- Americanon 65-40-1492KSQ/1.73 sq M.predicted among non-blacks MDRD (S/P/Bld) [Vol rate/Area]21 mL/MinVeterans Health Administration CtrGlobulin Calc (S) [Mass/Vol]on 22-09-5419Ywxuzmvk (S) [Mass/Vol]4.4 g/dLVeterans Health Administration CtrGlucose Glucometer (BldC) [Mass/Vol]on 55-72-6332Cpxkfub [Mass/Vol] 388 mg/dLVeterans Health Administration CtrComment on above:Random Glucose Reference Range is dependent on time and content of last meal. Glucose of more than 200 mg/dL in a nonstressed, ambulatory subject supports the diagnosis of Diabetes Mellitus.Hematocrit Auto (Bld) [Volume fraction]on 69-55-6996Lcaphbaaxj (Bld) [Volume fraction]36.1 %38.8-50.0[facility] CtrLaboratory - Chemistry and Chemistry - challengeon 61-30-0519WL7 [Moles/Vol]25.7 mmol/L 24.0-29.0[facility] CtrHCO3 (Bld) [Moles/Vol]24.3 mmol/L 23.0-29.0[facility] CtrMagnesium [Mass/Vol]2.2 mg/dL1.6-2.6 [facility] CtrNatriuretic peptide B (Bld) [Mass/Vol]48.0 pg/mL 5-100[facility] CtrLaboratory - Coagulationon 84-19-1426JG Coag (PPP) [Time]11.7 s9.0-12.9[facility] CtrLaboratory - Hematology and Cell countson 15-51-2309Nrwzbkhrq RBC/100 WBC (Bld) [Ratio]0.1 %0-0.5 [facility] CtrLymphocytes Auto (Bld) [#/Vol]on 08-18-2020 Lymphocytes (Bld) [#/Vol]0.9 10*3/uL1.00-4.8[facility] Lymphocytes/100 WBC Auto (Bld)on 43-09-7629Klbvljsutqy/100 WBC (Bld)6.1 % [facility]H Auto (RBC) [Entitic mass]on 31-04-4633PJC (RBC) [Entitic mass]27.2 pg27.5-35.2FUniversity Hospitals TriPoint Medical CenterMCHC Auto (RBC) [Mass/Vol]on 44-31-4193XYIG (RBC) [Mass/Vol]32.6 g/dL32.5-35.6FKettering Health MiamisburgV Auto (RBC) [Entitic vol]on 13-53-3426FWB (RBC) [Entitic vol]83.5 fL83.5-101[facility] CtrMonocytes Auto (Bld) [#/Vol]on 09-28-5050Ddqszzpfv (Bld) [#/Vol]1.5 10*3/uL0.0-0.8[facility] CtrMonocytes/100 WBC Auto (Bld)on 31-38-1813Jsslemevu/100 WBC (Bld)10.1 % [facility] CtrNeutrophils Auto (Bld) [#/Vol]on 08-18-2020 Neutrophils (Bld) [#/Vol]12.3 10*3/uL1.8-7.7FUniversity Hospitals St. [facility] Ctr Neutrophils/100 WBC Auto (Bld)on 28-95-7276Emjhrxzeakx/100 WBC (Bld)80.1 % [facility] CtrNo Panel Informationon 62-55-6287Bthnncwmouh Panel (PCR)[facility] CtrBlood Gas Critical ValueSee commentVeterans Health Administration CtrComment on above:Critical Value called on: 08/18/2020 at 17:44Blood Gas Sample SiteVenousVeterans Health Administration HziEfT187 %[facility] CtrVenous Blood Base Excess-1.5 mmol/L-3.0-3.0[facility] CtrVenous Blood Oxygen Content4.1 mmol/L6.6-9.7FUniversity Hospitals St. John Medical Center CtrVenous Blood Oxygen Wiqqaskslk78.3 %73.0-76.0[facility] CtrVenous Blood Partial Pressure CO245.2 mm[Hg]38.0-50.0 [facility] CtrVenous Blood Partial Pressure O224.4 mm[Hg] 35.0-45.0[facility] CtrVenous Blood pH7.357.32-7.43[facility] CtrEstimated GFR ()26 mL/MinVeterans Health Administration CtrComment on above:GFR estimated reference range: According to KDOQI guidelines, <60 ml/min/1.73m2 is sufficient todiagnose a patient with chronic kidney disease.Pharmacy Creatinine Clearance (Chem38.57[facility] CtrPlatelet mean volume Auto (Bld) [Entitic vol]on 11-94-9904Mvgxrous mean volume (Bld) [Entitic vol]7.3 fL6.6-10.1FUniversity Hospitals St. John Medical Center Ctr Platelet poor plasma international normalized ratio (INR) by coagulation assay (relaton 86-22-4674OEU Coag (PPP) [Relative time]1.0 {INR}[facility] CtrComment on above:INR Therapeutic Range A) Pre- [...] valves: 3 - 4.5Platelets Auto (Bld) [#/Vol]on 45-06-4418Uddlvkliv (Bld) [#/Vol]249 10*3/zU744-903FjecskgllVeterans Health Administration CtrProtein [Mass/volume] in Serum or Plasmaon 14-18-5867Gmhyvyp [Mass/Vol]7.1 g/dL6.1-7.9[facility] CtrRBC Auto (Bld) [#/Vol]on 80-16-2025LNH (Bld) [#/Vol]4.32 10*6/uL 3.90-5.60[facility] CtrSerum or plasma alanine aminotransferase measurement without P-5'-P (enzymatic activion 30-01-3672HZR No additional P-5'-P [Catalytic activity/Vol]13 U/Z72-04CfmumliamVeterans Health Administration CtrSerum or plasma albumin/globulin mass ratioon 70-70-9938Zymqpqq/Globulin [Mass ratio]0.6 {ratio}[facility] CtrSerum or plasma alkaline phosphatase measurement (enzymatic activity/volume)on 68-98-0241YQQ [Catalytic activity/Vol] 88 U/C42-10UrbcbllqoVeterans Health Administration CtrSerum or plasma aspartate aminotransferase measurement (enzymatic activity/volume)on 73-62-7689UYD [Catalytic activity/Vol]16 U/F40-95YjmjzhbugVeterans Health Administration CtrSerum or plasma calcium measurement (mass/volume)on 27-64-0848Ayuivhu [Mass/Vol]8.9 mg/dL 8.2-10.2FUniversity Hospitals St. John Medical Center CtrSerum or plasma cardiac troponin I measurement (mass/volume)on 86-38-8063Wxblwtvt I.cardiac [Mass/Vol]ng/mL0-0.02 [facility] CtrComment on above:HÉCTOR [place] Cut off value > or equal to 0.03 ng/mL in conjunction with clinical conditions of myocardial infarction.(www.escardio.org/guidelines)Serum or plasma chloride measurement (moles/volume)on 73-39-1057Yfiavdgo [Moles/Vol]95 mmol/L35-469XwyhzlrjiVeterans Health Administration CtrSerum or plasma glucose measurement (mass/volume)on 08-18-2020 Glucose [Mass/Vol]512 mg/hH41-518BdquatqihVeterans Health Administration CtrComment on above: Results calledat 1659 on 08/18/20 ADA recommended reference rangeRandom Glucose Reference Range is dependent on time and content of last meal. Glucose of more than 200 mg/dL in a nonstressed, ambulatory subject supports the diagnosis of Diabetes Mellitus.Serum or plasma potassium measurement (moles/volume)on 60-23-9204Xocepcdrh [Moles/Vol]4.2 mmol/L3.5-5.1FUniversity Hospitals TriPoint Medical Center Serum or plasma sodium measurement (moles/volume)on 57-28-5846Ennwrl [Moles/Vol] 128 mmol/W962-330WlesrhmkyVeterans Health Administration CtrSerum or plasma total bilirubin measurement (mass/volume)on 03-26-8368Owvwhfohz [Mass/Vol]0.7 mg/dL0.3-1.2 [facility] CtrSerum or plasma total carbon dioxide measurement (moles/volume)on 48-23-0237UQ7 [Moles/Vol]22.6 mmol/L22.0-30.0[facility] CtrSerum or plasma urea nitrogen measurement (mass/volume)on 08-18-2020 Urea nitrogen [Mass/Vol]27 mg/dL9-[facility] CtrCBC COMPLETE BLOOD COUNTon 38-02-3334Ecghsmegjoj distribution width (RBC) [Ratio]15.0 %Normal 11.5-15.0The [facility] HospitalComment on above:Order Comment: No: Do not add to previous drawPerformed By: #### [id number] #### [facility] [address] [place] [address], [facility] HOSPITALHematocrit (Bld) [Volume fraction]32.4 %Low39.0-50.0The [facility] HospitalComment on above:Order Comment: No: Do not add to previous drawPerformed By: #### [id number] #### [facility] [address] [place] [address], [facility] HOSPITALHemoglobin (Bld) [Mass/Vol]9.5 g/dLLow13.0-17.0The [facility] HospitalComment on above:Order Comment: No: Do not add to previous drawPerformed By: #### [id number] #### [facility] [address] [address], [facility]H (RBC) [Entitic mass]26.7 pgLow27.0-33.0The [facility] HospitalComment on above:Order Comment: No: Do not add to previous drawPerformed By: #### [id number] #### [facility] [address] [place] [address], [facility]HC (RBC) [Mass/Vol]29.3 g/dLLow32.0-35.0The [facility] HospitalComment on above:Order Comment: No: Do not add to previous drawPerformed By: #### [id number] #### [facility] [address] [place] [id number], [facility] HOSPITALMCV (RBC) [Entitic vol]91.0 rYVjsyqx11.0-98.0The [facility] HospitalComment on above:Order Comment: No: Do not add to previous drawPerformed By: #### [id number] #### [facility] [address] [place] [address], [facility] HOSPITALNucleated RBC/100 WBC (Bld) [Ratio]0 %Normal0-0The [facility] HospitalComment on above:Order Comment: No: Do not add to previous drawPerformed By: #### [id number] #### [facility] [address] [place] [id number], USAPLAT MEO916 10*3/kUJasrht883-959Wsx [facility] HospitalComment on above:Order Comment: No: Do not add to previous draw Performed By: #### [id number] #### [facility] [address] [place] [id number], [facility] HOSPITALRBC (Bld) [#/Vol]3.56 10*6/uLLow4.20-5.70The [facility] HospitalComment on above:Order Comment: No: Do not add to previous drawPerformed By: #### [id number] #### [facility] [address] [place] [address], [facility] HOSPITALWBC (Bld) [#/Vol]8.61 10*3/uLNormal4.00-10.60The [facility] HospitalComment on above:Order Comment: No: Do not add to previous drawPerformed By: #### [id number] #### [facility] [address] [place] [address], USACOMP METABOLIC PANELon 53-27-0422Yuuxddy [Mass/Vol]2.7 g/dL Low3.5-5.7The [facility] HospitalComment on above:Order Comment: No: Do not add to previous drawPerformed By: #### [id number] #### [facility] [address] [place] [address], USAALKALINE MCLJAJ76 IU/JQzooup18-098Qtt [facility] HospitalComment on above:Order Comment: No: Do not add to previous draw Performed By: #### [id number] #### [facility] [address] [place] [address], USAALT [Catalytic activity/Vol]4 U/LLow7-52The [facility] HospitalComment on above:Order Comment: No: Do not add to previous drawPerformed By: #### [id number] #### [facility] [address] [place] [address], USAAST [Catalytic activity/Vol]15 U/ZVhppgn03-39Vet [facility] HospitalComment on above:Order Comment: No: Do not add to previous drawPerformed By: #### [id number] #### [facility] [address] [place] [address], USABilirubin [Mass/Vol]0.2 mg/dLLow0.3-1.0The [facility] HospitalComment on above:Order Comment: No: Do not add to previous drawPerformed By: #### [id number] #### [facility] [address] [place] [address], USACalcium [Mass/Vol]8.9 mg/dLNormal8.6-10.3The [facility] HospitalComment on above:Order Comment: No: Do not add to previous drawPerformed By: #### [id number] #### [facility] [address] [place] [address], USAChloride [Moles/Vol]109 mmol/XJxfv15-722Uya [facility] HospitalComment on above:Order Comment: No: Do not add to previous drawPerformed By: #### [id number] #### [facility] [address] [place] [address], USACO2 [Moles/Vol]24 mmol/RTusmuu36-02Cob [facility] HospitalComment on above:Order Comment: No: Do not add to previous draw Performed By: #### [id number] #### [facility] [address] [place] [address], USACreatinine [Mass/Vol]3.39 mg/dLHigh0.70-1.30The [facility] HospitalComment on above:Order Comment: No: Do not add to previous drawPerformed By: #### [id number] #### [facility] [address] [place] [address], USAeGFR- Zmxzewfi64 ml/min/1.73sq mAbnormal>60The [facility] HospitalComment on above:Order Comment: No: Do not add to previous drawPerformed By: #### [id number] #### [facility] [address] [place] [address], USAeGFR- non- Heiuhygl51 ml/min/1.73sq mAbnormal>60The [facility] HospitalComment on above:Order Comment: No: Do not add to previous drawPerformed By: #### [id number] #### [facility] [address] [place] [address], USAGlucose [Mass/Vol]90 mg/zMHjoegy11-040Jkw [facility] HospitalComment on above:Order Comment: No: Do not add to previous drawPerformed By: #### [id number] #### [facility] [address] [place] [address], USAPotassium [Moles/Vol]4.4 mmol/LNormal3.5-5.1The [facility] HospitalComment on above:Order Comment: No: Do not add to previous drawPerformed By: #### [id number] #### [facility] [address] [place] [address], USAProtein [Mass/Vol]5.9 g/dLLow6.0-8.3The [facility] HospitalComment on above:Order Comment: No: Do not add to previous drawPerformed By: #### [id number] #### [facility] [address] [place] [address], USASodium [Moles/Vol]140 mmol/SOvnthv803-394Acr [facility] HospitalComment on above:Order Comment: No: Do not add to previous drawPerformed By: #### 96600 #### [facility] [address] [place] [address], USAUrea nitrogen [Mass/Vol]35 mg/dLHigh7-25The [facility] HospitalComment on above:Order Comment: No: Do not add to previous drawPerformed By: #### [id number] #### [facility] [address] [address], USAPOC GLUCOSE LABon 80-68-4737Adpgpcv [Mass/Vol]192 mg/dLHigh 70-100The [facility] HospitalComment on above:Performed By: #### [id number] #### [facility] [address] [place] [address], USAGlucose [Mass/Vol]95 mg/aOOqotbi61-085Xcj [facility] HospitalComment on above:Performed By: #### [id number], 81415 #### [facility] [address] [place] [address], USAGlucose [Mass/Vol]123 mg/tVJazy33-195Rqk [facility] HospitalComment on above:Performed By: #### [id number] ####[facility] [place] [address], USAARTERIAL BLOOD GAS WITH ICAon 07-03-6814NPPU EXCESS-2 mmol/IWvrskh-9-1Yng [facility] HospitalComment on above:Performed By: #### 94213 #### [facility] [address] [place] [address], USADELIVERY SYSTEMSFOCUSNormalThe [facility] HospitalComment on above:Performed By: #### [id number] #### [facility] [address] [place] [address], USAHCO3 (Bld) [Moles/Vol]24 mmol/BCmjcgv35-65Oxs [facility] HospitalComment on above:Performed By: #### 92409 #### [facility] [address] [place] [address], USAIONIZED CALCIUM1.25 mmol/LNormal1.13-1.32The [facility] HospitalComment on above:Performed By: #### [id number] #### [facility] [address] [place] [address], USALPM4.[address] [facility] Comment on above:Performed By: #### [id number] #### [facility] [address] [place] [address], USAMODALITYBIPAPNormalThe [facility] Comment on above:Performed By: #### [id number] #### [facility] [address] [place] [address], USAOxygen (Bld) [Partial pressure]91 mm[Hg]Hpkepz89-338Mmm [facility] HospitalComment on above:Performed By: #### [id number] #### [facility] [address] [place] [address], USAOxygen saturation in Blood95.9 %Skfhjj55.0-97.0The [facility] HospitalComment on above:Performed By: #### [id number] #### [facility] [address] [place] [address], WTFHGH094 hzEsMdix82-74Pen [facility] Comment on above:Performed By: #### 08892 #### [facility] [address] [place] [address], USAPEEP8.0 AZV99AsipdoWciBarney Children's Medical Center Comment on above:Performed By: #### 96911 #### [facility] [address] [place] [address], USApH (Bld)7.32 [pH]Low7.35-7.45The [facility] HospitalComment on above:Performed By: #### [id number] #### [facility] [address] [place] [address], USAPRESSURE KNQFIGB25XjgjbsTzzBarney Children's Medical CenterComment on above:Performed By: #### 93040 #### [facility] [address] [place] [address], USABASE EXCESS-3 mmol/LLow-2-3The [facility] HospitalComment on above:Performed By: #### 60174 #### [facility] [address] [place] [address], USADELIVERY SYSTEMSNASAL CANNULANoBarney Children's Medical CenterComment on above:Performed By: #### [id number] #### [facility] [address] [place] [address], USAHCO3 (Bld) [Moles/Vol]25 mmol/TDvtzex96-91Hiv [facility] HospitalComment on above:Performed By: #### 81031 #### [facility] [address] [place] [address], USAIONIZED CALCIUM1.26 mmol/LNormal1.13-1.32The [facility] HospitalComment on above:Performed By: #### [id number] #### [facility] [address] [place] [address], USALPM2.[address] [facility] Comment on above:Performed By: #### 58981 #### [facility] [address] [place] [address], USAOxygen (Bld) [Partial pressure]92 mm[Hg]Ypygcq06-359Zil [facility] HospitalComment on above:Performed By: #### 13532 #### [facility] [address] [place] [address], USAOxygen saturation in Blood95.7 %Kckdqq51.0-97.0The [facility] HospitalComment on above:Performed By: #### [id number] #### [facility] [address] [place] [address], INBKBX935 jrFcOuxq28-22Kws [facility] Comment on above:Performed By: #### 13311 #### [facility] [address] [place] [address], USApH (Bld)7.27 [pH]Low7.35-7.45The [facility] HospitalComment on above:Performed By: #### [id number] #### [facility] [address] [place] [address], USABASIC METABOLIC PANELon 61-41-0432Alukazx [Mass/Vol]9.0 mg/dLNormal8.6-10.3The [facility] HospitalComment on above:Order Comment: No: Do not add to previous drawPt not in room rn will return when back.Performed By: #### [id number] #### [facility] [address] [place] [address], USAChloride [Moles/Vol]106 mmol/CXqpsxu85-258Ktc [facility] HospitalComment on above:Order Comment: No: Do not add to previous drawPt not in room rn will return when back.Performed By: #### [id number] #### [facility] [address] [place] [address], USACO2 [Moles/Vol]25 mmol/MKrjpuo02-03Lde [facility] HospitalComment on above:Order Comment: No: Do not add to previous drawPt not in room rn will return when back.Performed By: #### [id number] #### [facility] [address] [place] [address], USACreatinine [Mass/Vol]3.75 mg/dLHigh0.70-1.30The [facility] HospitalComment on above:Order Comment: No: Do not add to previous drawPt not in room rn will return when back.Performed By: #### [id number] #### [facility] [address] [place] [address], USAeGFR- Kacpmcgg13 ml/min/1.73sq mAbnormal>60The [facility] HospitalComment on above:Order Comment: No: Do not add to previous drawPt not in room rn will return when back.Performed By: #### [id number] #### [facility] [address] [place] [address], USAeGFR- non- Surbggkk50 ml/min/1.73sq mAbnormal>60The [facility] HospitalComment on above:Order Comment: No: Do not add to previous drawPt not in room rn will return when back.Performed By: #### [id number] #### [facility] [address] [place] [address], USAGlucose [Mass/Vol]132 mg/aWNskf62-279Nwr [facility] HospitalComment on above:Order Comment: No: Do not add to previous drawPt not in room rn will return when back.Performed By: #### [id number] #### [facility] [address] [place] [address], USAPotassium [Moles/Vol]5.0 mmol/LNormal3.5-5.1The [facility] HospitalComment on above:Order Comment: No: Do not add to previous drawPt not in room rn will return when back.Performed By: #### [id number] #### [facility] [address] [place] [address], [facility] HOSPITALSodium [Moles/Vol]138 mmol/BFdsyzq256-293Cbq [facility] HospitalComment on above:Order Comment: No: Do not add to previous drawPt not in room rn will return when back.Performed By: #### [id number] #### [facility] [address] [place] [address], USAUrea nitrogen [Mass/Vol]37 mg/dLHigh7-25The [facility] HospitalComment on above:Order Comment: No: Do not add to previous drawPt not in room rn will return when back.Performed By: #### [id number] #### [facility] [address] [place] [address], [facility]PITALCB COMPLETE BLOOD COUNTon 37-11-6383Xmxomaypykz distribution width (RBC) [Ratio]15.0 %Tdncnb91.5-15.0The [facility] HospitalComment on above:Order Comment: No: Do not add to previous drawPt not in room rn will return when back.Performed By: #### [id number] #### [facility] [address] [place] [address], USAHematocrit (Bld) [Volume fraction]33.9 %Low39.0-50.0The [facility] HospitalComment on above:Order Comment: No: Do not add to previous drawPt not in room rn will return when back.Performed By: #### [id number] #### [facility] [address] [place] [address], USAHemoglobin (Bld) [Mass/Vol]9.9 g/dLLow13.0-17.0The [facility] HospitalComment on above:Order Comment: No: Do not add to previous drawPt not in room rn will return when back.Performed By: #### [id number] #### [facility] [address] [place] [address], [facility] ([facility]BC) [Entitic mass]26.9 pgLow27.0-33.0The [facility] HospitalComment on above:Order Comment: No: Do not add to previous drawPt not in room rn will return when back.Performed By: #### [id number] #### [facility] [address] [place] [id number], [facility] (RBC) [Mass/Vol]29.2 g/dLLow32.0-35.0The [facility] HospitalComment on above:Order Comment: No: Do not add to previous drawPt not in room rn will return when back.Performed By: #### [id number] #### [facility] [address] [facility] [address] [place] [address], [facility] (RBC) [Entitic vol]92.1 jODhoeki10.0-98.0The [facility] HospitalComment on above:Order Comment: No: Do not add to previous drawPt not in room rn will return when back.Performed By: #### [id number] #### [facility] [address] [place] [address], [facility] HOSPITALNucleated RBC/100 WBC (Bld) [Ratio]0 %Normal0-0The [facility] HospitalComment on above:Order Comment: No: Do not add to previous drawPt not in room rn will return when back.Performed By: #### [id number] #### [facility] [address] [facility] [address] [place] [address], [facility] HOSPITALPLAT PMG433 10*3/gHYazdjx216-992Hdw [facility] HospitalComment on above:Order Comment: No: Do not add to previous drawPt not in room rn will return when back.Performed By: #### [id number] #### [facility] [address] [place] [address], USARBC (Bld) [#/Vol]3.68 10*6/uLLow4.20-5.70The [facility] HospitalComment on above:Order Comment: No: Do not add to previous drawPt not in room rn will return when back.Performed By: #### 96829 #### [address] [address], USAWBC (Bld) [#/Vol]9.51 10*3/uLNormal4.00-10.60The [facility] HospitalComment on above:Order Comment: No: Do not add to previous drawPt not in room rn will return when back.Performed By: #### 34083 #### [address] [address], USACT CHEST WO CONTRASTon [id number] CHEST WO CONTRAST [facility] Department of Radiology [address] [place] [id number] Patient Name: RASHARD LYMAN : 1960 Sex: M Age: Race: White Pt. Location: [address] [place] [address] Patient Status: I Ordered Date: 07/21/2020 6:00:00 [...] pneumonia. Electronically signed: Manuel Saldaña. Transcribed by: [email or web address], User Resident: Electronically Signed by: MANUEL SALDAÑA @ 07/21/2020 08:[address] [facility] HospitalComment on above:Order Comment: Left Peural EffusionPOC GLUCOSE LABon 34-74-1801Qnejtup [Mass/Vol]134 mg/yFRtec24-936Uvs [facility] HospitalComment on above:Performed By: #### 630[address] #### [place] [address], [facility] HOSPITALGlucose [Mass/Vol]88 mg/jFZjllrh37-079Bwb [facility] HospitalComment on above:Performed By: #### 66641 #### [facility] [address] [place] [address], USAGlucose [Mass/Vol]110 mg/xBPguc84-699Qgz [facility] HospitalComment on above:Performed By: #### 82120 #### [facility] [address] [place] [address], USAGlucose [Mass/Vol]118 mg/sUSvln74-356Qfw [facility] HospitalComment on above:Performed By: #### [id number], 98855 #### [facility] [address] [place] [address], USAGlucose [Mass/Vol]137 mg/sVQbjt98-528Djx [facility] HospitalComment on above:Performed By: #### 55610, 37386 #### [facility] [address] [place] [address], USABASIC METABOLIC PANELon 10-61-5827Jpihcuf [Mass/Vol]8.4 mg/dLLow8.6-10.3The [facility] HospitalComment on above:Order Comment: No: Do not add to previous drawPerformed By: #### [id number] #### [facility] [address] [place] [address], USAChloride [Moles/Vol]107 mmol/WOfirrj69-724Lyd [facility] HospitalComment on above:Order Comment: No: Do not add to previous drawPerformed By: #### 24444 #### [facility] [address] [place] [address], USACO2 [Moles/Vol]23 mmol/EArqyhz11-84Dox [facility] HospitalComment on above:Order Comment: No: Do not add to previous draw Performed By: #### 40741 #### [facility] [address] [place] [address], USACreatinine [Mass/Vol]3.95 mg/dLHigh0.70-1.30The [facility] HospitalComment on above:Order Comment: No: Do not add to previous drawPerformed By: #### [id number] #### [facility] [address] [place] [address], USAeGFR- Qzxzpbpb54 ml/min/1.73sq mAbnormal>60The [facility] HospitalComment on above:Order Comment: No: Do not add to previous drawPerformed By: #### 96710 #### [facility] [address] [place] [address], USAeGFR- non- Wnmrvwda71 ml/min/1.73sq mAbnormal>60The [facility] HospitalComment on above:Order Comment: No: Do not add to previous drawPerformed By: #### [id number] #### [facility] [address] [place] [address], USAGlucose [Mass/Vol]110 mg/bDNbmc13-342Qfe [facility] HospitalComment on above:Order Comment: No: Do not add to previous drawPerformed By: #### 62020 #### [facility] [address] [place] [address], USAPotassium [Moles/Vol]4.9 mmol/LNormal3.5-5.1The [facility] HospitalComment on above:Order Comment: No: Do not add to previous drawPerformed By: #### 74366 #### [facility] [address] [place] [address], USASodium [Moles/Vol]137 mmol/WJktpdi455-011Dci [facility] HospitalComment on above:Order Comment: No: Do not add to previous drawPerformed By: #### 43481 #### [facility] [address] [place] [address], USAUrea nitrogen [Mass/Vol]37 mg/dLHigh7-25The [facility] HospitalComment on above:Order Comment: No: Do not add to previous drawPerformed By: #### 70212 #### [facility] [address] [facility] [place] [address], [facility]OSPITALCB W/DIFFon 12-90-2853JJM IMM GRANS0.1 10*3/uLNormal 0.0-0.2The [facility] HospitalComment on above:Order Comment: No: Do not add to previous drawPerformed By: #### [id number] #### [facility] [address] [facility] [place] [address], USAABS NEUTROPHILS5.9 10*3/uLNormal1.6-7.6The [facility] HospitalComment on above:Order Comment: No: Do not add to previous drawPerformed By: #### [id number] #### [facility] [address] [address], USABasophils (Bld) [#/Vol]0.1 10*3/uLNormal0.0-0.2The [facility] HospitalComment on above:Order Comment: No: Do not add to previous drawPerformed By: #### 59883 #### [facility] [address] [facility] [place] [address], USABasophils/100 WBC (Bld)1.0 %Normal0.0-1.0The [facility] HospitalComment on above:Order Comment: No: Do not add to previous drawPerformed By: #### 79532 #### [facility] [address] [facility] [place] [address], USAEosinophils (Bld) [#/Vol]0.4 10*3/uLNormal0.0-0.5The [facility] HospitalComment on above:Order Comment: No: Do not add to previous drawPerformed By: #### [id number] #### [facility] [address] [facility] [place] [address], USAEosinophils/100 WBC (Bld)5.1 %Normal0.0-6.0The [facility] HospitalComment on above:Order Comment: No: Do not add to previous drawPerformed By: #### [id number] #### [facility] [address] [facility] [place] [address], USAErythrocyte distribution width (RBC) [Ratio]15.4 %High 11.5-15.0The [facility] HospitalComment on above:Order Comment: No: Do not add to previous drawPerformed By: #### 88247 #### [facility] [address] [facility] [place] [address], USAHematocrit (Bld) [Volume fraction]35.7 %Low39.0-50.0The [facility] HospitalComment on above:Order Comment: No: Do not add to previous drawPerformed By: #### 50055 #### [facility] [address] [facility] [place] [address], USAHemoglobin (Bld) [Mass/Vol]10.3 g/dLLow13.0-17.0The [facility] HospitalComment on above:Order Comment: No: Do not add to previous drawPerformed By: #### 24039 #### [facility] [address] [facility] [place] [address], USAIMM PLATELET FRAC0.4 %Low0.8-6.3The [facility] HospitalComment on above:Order Comment: No: Do not add to previous draw Performed By: #### [id number] #### [facility] [address] [facility] [place] [address], USAIMMATURE GRANS1.1 %High0.0-1.0The [facility] HospitalComment on above:Order Comment: No: Do not add to previous draw Performed By: #### 81910 #### [facility] [address] [place] [address], USALymphocytes (Bld) [#/Vol]0.8 10*3/uLLow1.2-4.0The [facility] HospitalComment on above:Order Comment: No: Do not add to previous drawPerformed By: #### 11285 #### [facility] [address] [address], USALymphocytes/100 WBC (Bld)9.3 %Low20.0-45.0The [facility] HospitalComment on above:Order Comment: No: Do not add to previous drawPerformed By: #### 76200 #### [facility] [address] [address], [facility] (RBC) [Entitic mass]27.4 cmRvldyk58.0-33.0The [facility] HospitalComment on above:Order Comment: No: Do not add to previous drawPerformed By: #### [id number] #### [facility] [address] [place] [id number], [facility] HOSPITALMCHC (RBC) [Mass/Vol]28.9 g/dLLow32.0-35.0The [facility] HospitalComment on above:Order Comment: No: Do not add to previous drawPerformed By: #### 10002 #### [facility] [address] [place] [address], [facility] (RBC) [Entitic vol]94.9 kNPlhend79.0-98.0The [facility] HospitalComment on above:Order Comment: No: Do not add to previous drawPerformed By: #### [id number] #### [facility] [address] [place] [address], USAMonocytes (Bld) [#/Vol]1.1 10*3/uLHigh0.1-1.0The [facility] HospitalComment on above:Order Comment: No: Do not add to previous drawPerformed By: #### 39032 #### [facility] [address] [place] [address], UNSWIRKA68.9 %High5.0-12.0The [facility] HospitalComment on above:Order Comment: No: Do not add to previous drawPerformed By: #### 06968 #### [facility] [address] [place] [address], USANeutrophils/100 WBC (Bld)70.6 %Yxrysc77.0-72.0The [facility] HospitalComment on above:Order Comment: No: Do not add to previous drawPerformed By: #### 69510 #### [facility] [address] [place] [address], USANucleated RBC/100 WBC (Bld) [Ratio]0 %Normal0-0The [facility] HospitalComment on above:Order Comment: No: Do not add to previous drawPerformed By: #### [id number] #### [facility] [address] [facility] [place] [address], USAPLAT ESTIMATENormalNormalThe [facility] HospitalComment on above:Order Comment: No: Do not add to previous drawResult Comment: EDTA smear shows platelet clumping, see platelet estimatePerformed By: #### [id number] #### [facility] [address] [facility] [place] [address], USARBC (Bld) [#/Vol]3.76 10*6/uLLow4.20-5.70The [facility] HospitalComment on above:Order Comment: No: Do not add to previous drawPerformed By: #### 76472 #### [facility] [address] [place] [address], USAWBC (Bld) [#/Vol]8.30 10*3/uLNormal4.00-10.60The [facility] HospitalComment on above:Order Comment: No: Do not add to previous drawPerformed By: #### 63095 #### [facility] [address] [facility] [place] [address], USAPOC GLUCOSE LABon 42-38-1100Nfusfrc [Mass/Vol]110 mg/dLHigh 70-100The [facility] HospitalComment on above:Performed By: #### 13949 #### [facility] [address] [facility] [place] [address], USAGlucose [Mass/Vol]124 mg/oKWfon62-420Egr [facility] HospitalComment on above:Performed By: #### 70769 #### [facility] [address] [facility] [place] [address], USAGlucose [Mass/Vol]111 mg/xZMsje36-487Cfk [facility] HospitalComment on above:Performed By: #### 98187, 14234 #### [facility] [address] [facility] [place] [address], USAPORTABLE CHEST 1 VIEWon 11-27-7650CZTDXYEO CHEST [address] [facility] Department of Radiology [address] [place] [id number] Patient Name: RASHARD LYMAN : 1960 Sex: M Age: Race: White Pt. Location: [address] [place] [address] Patient Status: I Ordered Date: 07/20/2020 6:00:00 [...] unchanged Electronically signed: Manuel Saldaña. Transcribed by: [email or web address], User Resident: Electronically Signed by: MANUEL SALDAÑA @ 07/20/2020 09:[address] [facility] HospitalComment on above:Order Comment: Evaluate for EffusionBASIC METABOLIC PANELon 21-01-3407Cmaxjya [Mass/Vol]8.4 mg/dLLow8.6-10.[address] [facility] HospitalComment on above:Order Comment: No: Do not add to previous drawPerformed By: #### [id number] #### [facility] [address] [place] [address], USAChloride [Moles/Vol]104 mmol/GQoymmz33-478Iab [facility] HospitalComment on above:Order Comment: No: Do not add to previous drawPerformed By: #### [id number] #### [facility] [address] [place] [address], USACO2 [Moles/Vol]24 mmol/TIuczfn30-66Zdr [facility] HospitalComment on above:Order Comment: No: Do not add to previous draw Performed By: #### 28892 #### [facility] [address] [place] [address], USACreatinine [Mass/Vol]4.15 mg/dLHigh0.70-1.30The [facility] HospitalComment on above:Order Comment: No: Do not add to previous drawPerformed By: #### [id number] #### [facility] [address] [place] [address], USAeGFR- Ymwkbsao77 ml/min/1.73sq mAbnormal>60The [facility] HospitalComment on above:Order Comment: No: Do not add to previous drawPerformed By: #### 73430 #### [facility] [address] [place] [address], USAeGFR- non- Hlqrjvxw15 ml/min/1.73sq mAbnormal>60The [facility] HospitalComment on above:Order Comment: No: Do not add to previous drawPerformed By: #### [id number] #### [facility] [address] [place] [address], USAGlucose [Mass/Vol]180 mg/zWOxzj52-158Wsc [facility] HospitalComment on above:Order Comment: No: Do not add to previous drawPerformed By: #### 39825 #### [facility] [address] [place] [address], USAPotassium [Moles/Vol]4.4 mmol/LNormal3.5-5.1The [facility] HospitalComment on above:Order Comment: No: Do not add to previous drawPerformed By: #### 84996 #### [facility] [address] [place] [address], USASodium [Moles/Vol]135 mmol/GLro162-691Mgb [facility] HospitalComment on above:Order Comment: No: Do not add to previous drawPerformed By: #### 86899 #### [facility] [address] [place] [address], USAUrea nitrogen [Mass/Vol]37 mg/dLHigh7-25The [facility] HospitalComment on above:Order Comment: No: Do not add to previous drawPerformed By: #### [id number] #### [facility] [address] [place] [address], USACBC COMPLETE BLOOD COUNTon 06-92-0506Someiucroak distribution width (RBC) [Ratio]14.8 %Ihdqdi03.5-15.0The [facility] HospitalComment on above:Order Comment: No: Do not add to previous draw Performed By: #### 91446 #### [facility] [address] [place] [address], USAHematocrit (Bld) [Volume fraction]30.9 %Low39.0-50.0The [facility] HospitalComment on above:Order Comment: No: Do not add to previous drawPerformed By: #### 23271 #### [facility] [address] [address], USAHemoglobin (Bld) [Mass/Vol]9.0 g/dLLow13.0-17.0The [facility] HospitalComment on above:Order Comment: No: Do not add to previous drawPerformed By: #### [id number] #### [facility] [address] [place] [address], [facility] HOSPITALMCH (RBC) [Entitic mass]26.6 pgLow27.0-33.0The [facility] HospitalComment on above:Order Comment: No: Do not add to previous drawPerformed By: #### 74986 #### [facility] [address] [place] [address], [facility]OSPITALMCHC (RBC) [Mass/Vol]29.1 g/dLLow32.0-35.0The [facility] HospitalComment on above:Order Comment: No: Do not add to previous drawPerformed By: #### 24936 #### [facility] [address] [address], USAMCV (RBC) [Entitic vol]91.4 wKPewjrd83.0-98.0The [facility] HospitalComment on above:Order Comment: No: Do not add to previous drawPerformed By: #### 92162 #### [facility] [address] [place] [address], USANucleated RBC/100 WBC (Bld) [Ratio]0 %Normal0-0The [facility] HospitalComment on above:Order Comment: No: Do not add to previous drawPerformed By: #### 72912 #### [facility] [address] [place] [address], USAPLAT VCX229 10*3/zKGnsfre588-802Wng [facility] HospitalComment on above:Order Comment: No: Do not add to previous draw Performed By: #### [id number] #### [facility] [address] [place] [address], USARBC (Bld) [#/Vol]3.38 10*6/uLLow4.20-5.70The [facility] HospitalComment on above:Order Comment: No: Do not add to previous drawPerformed By: #### 12621 #### [facility] [address] [address], USAWBC (Bld) [#/Vol]6.73 10*3/uLNormal4.00-10.60The [facility] HospitalComment on above:Order Comment: No: Do not add to previous drawPerformed By: #### 61553 #### [facility] [address] [place] [address], USAOperative Reporton [id number] ReportMR#: [id number] [facility] Pt. Name: [facility] #: [id number] Discharge Date: Birthdate: 1960 OPERATIVE REPORT DATE OF SURGERY: 07/19/2020 SURGEON: Nima Wynne MD Operative Note Medical Thoracoscopy, lysis of adhesions, pleural biopsy Procedure Date: 07/19/2020 Procedure: Medical Thoracoscopy, pleural biopsies, lysis of adhesions, and chest tube placement Preoperative Diagnosis: Loculated pleural effusion Post-operative Diagnosis: same Surgeons: Nima Wynne MD [employer] Sales Consultant: Davis Pham MD Type of Anesthesia: [...] Wynne MD Date Trans: 07/19/2020 02:43 P/ DN_JN:[id number] cc: Jose Juarez D.O. [address] [place] [address] [place] [address]LyeubeKauCleveland Clinic [facility] GLUCOSE LABon [id number] [Mass/Vol]219 mg/lFEdgc53-823Bzo [facility] HospitalComment on above:Performed By: #### [id number], [id number] #### [facility] [address] [place] [address], USAGlucose [Mass/Vol]152 mg/eVEdcf99-726Irv [facility] HospitalComment on above:Performed By: #### 74452, 28171 #### [facility] [address] [place] [address], USAGlucose [Mass/Vol]183 mg/eQClss84-023Rbp [facility] HospitalComment on above:Performed By: #### [id number] #### [facility] [address] [place] [address], USAGlucose [Mass/Vol]206 mg/mBLjbe46-713Tsm [facility] HospitalComment on above:Performed By: #### 36147 ####[facility] [place] [address], USAGlucose [Mass/Vol] 179 mg/mRMptq14-617Pbw [facility] HospitalComment on above: Performed By: #### [id number] #### [address] [place] [address], USAPORTABLE CHEST 1 VIEWon [id number] CHEST [address] [facility] Department of Radiology [address] [place] [address] [place] [id number] Patient Name: RASHARD LYMAN : 1960 Sex: M Age: Race: White Pt. Location: [address] [place] [address] Patient Status: I Ordered Date: 07/19/2020 2:20:00 [...] infiltration Electronically signed: Pedro Baldwin. Transcribed by: [id number], User Resident: TAREK MOUSTAFA Electronically Signed by: PEDRO BALDWIN @ 07/19/2020 03:03 PM I personally read this/these film(s) with this [facility] SystemComment on above:Order Comment: Check Chest Tube Position BASIC METABOLIC PANELon 32-88-9855Gnttsxt [Mass/Vol]8.4 mg/dLLow8.6-10.3The [facility] HospitalComment on above:Order Comment: No: Do not add to previous drawPerformed By: #### [id number] #### [facility] [address] [place] [address], USAChloride [Moles/Vol]105 mmol/SWdisig77-571Lnu [facility] HospitalComment on above:Order Comment: No: Do not add to previous drawPerformed By: #### 91226 #### [facility] [address] [place] [address], USACO2 [Moles/Vol]25 mmol/KVxubls48-27Uae [facility] HospitalComment on above:Order Comment: No: Do not add to previous draw Performed By: #### [id number] #### [facility] [address] [place] [address], USACreatinine [Mass/Vol]4.54 mg/dLHigh0.70-1.30The [facility] HospitalComment on above:Order Comment: No: Do not add to previous drawPerformed By: #### 76622 #### [facility] [address] [place] [facility] [address], USAeGFR- Huagebyy94 ml/min/1.73sq mAbnormal>60The [facility] HospitalComment on above:Order Comment: No: Do not add to previous drawPerformed By: #### [id number] #### [facility] [address] [place] [address], USAeGFR- non- Aijmljqf94 ml/min/1.73sq mAbnormal>60The [facility] HospitalComment on above:Order Comment: No: Do not add to previous drawPerformed By: #### [id number] #### [facility] [address] [place] [address], USAGlucose [Mass/Vol]118 mg/vHNvju10-035Dom [facility] HospitalComment on above:Order Comment: No: Do not add to previous drawPerformed By: #### [id number] #### [facility] [address] [place] [address], USAPotassium [Moles/Vol]4.5 mmol/LNormal3.5-5.1The [facility] HospitalComment on above:Order Comment: No: Do not add to previous drawPerformed By: #### [id number] #### [facility] [address] [facility] [place] [place] [id number], USASodium [Moles/Vol]137 mmol/NRtftmx053-976Dtu [facility] HospitalComment on above:Order Comment: No: Do not add to previous drawPerformed By: #### [id number] #### [facility] [address] [facility] [place] [address], USAUrea nitrogen [Mass/Vol]40 mg/dLHigh7-25The [facility] HospitalComment on above:Order Comment: No: Do not add to previous drawPerformed By: #### 95119 #### [facility] [address] [facility] [place] [address], [facility]OSPITALCBC W/DIFFon 33-09-6370MAP IMM GRANS0.1 10*3/uLNormal 0.0-0.2The [facility] HospitalComment on above:Order Comment: No: Do not add to previous drawPerformed By: #### 63059 #### [facility] [address] [facility] [place] [place] [address], USAABS NEUTROPHILS5.0 10*3/uLNormal1.6-7.6The [facility] HospitalComment on above:Order Comment: No: Do not add to previous drawPerformed By: #### [id number] #### [facility] [address] [place] [address], USABasophils (Bld) [#/Vol]0.0 10*3/uLNormal0.0-0.2The [facility] HospitalComment on above:Order Comment: No: Do not add to previous drawPerformed By: #### [id number] #### [facility] [address] [place] [address], USABasophils/100 WBC (Bld)0.4 %Normal0.0-1.0The [facility] HospitalComment on above:Order Comment: No: Do not add to previous drawPerformed By: #### 13541 #### [facility] [address] [place] [address], USAEosinophils (Bld) [#/Vol]0.6 10*3/uLHigh0.0-0.5The [facility] HospitalComment on above:Order Comment: No: Do not add to previous drawPerformed By: #### 84263 #### [facility] [address] [place] [address], USAEosinophils/100 WBC (Bld)6.8 %High0.0-6.0The [facility] HospitalComment on above:Order Comment: No: Do not add to previous drawPerformed By: #### 73980 #### [facility] [address] [place] [address], USAErythrocyte distribution width (RBC) [Ratio]14.8 %Normal 11.5-15.0The [facility] HospitalComment on above:Order Comment: No: Do not add to previous drawPerformed By: #### 44189 #### [facility] [address] [place] [address], USAHematocrit (Bld) [Volume fraction]31.9 %Low39.0-50.0The [facility] HospitalComment on above:Order Comment: No: Do not add to previous drawPerformed By: #### 15922 #### [facility] [address] [place] [address], USAHemoglobin (Bld) [Mass/Vol]9.4 g/dLLow13.0-17.0The [facility] HospitalComment on above:Order Comment: No: Do not add to previous drawPerformed By: #### 60859 #### [facility] [address] [place] [address], USAIMMATURE GRANS1.7 %High0.0-1.0The [facility] HospitalComment on above:Order Comment: No: Do not add to previous draw Performed By: #### 93126 #### [facility] [address] [place] [address], USALymphocytes (Bld) [#/Vol]1.2 10*3/uLNormal1.2-4.0The [facility] HospitalComment on above:Order Comment: No: Do not add to previous drawPerformed By: #### [id number] #### [facility] [address] [place] [address], USALymphocytes/100 WBC (Bld)14.8 %Low20.0-45.0The [facility] HospitalComment on above:Order Comment: No: Do not add to previous drawPerformed By: #### [id number] #### [facility] [address] [place] [address], [facility] HOSPITALMCH (RBC) [Entitic mass]26.9 pgLow27.0-33.0The [facility] HospitalComment on above:Order Comment: No: Do not add to previous drawPerformed By: #### 85549 #### [facility] [address] [place] [address], USAMCHC (RBC) [Mass/Vol]29.5 g/dLLow32.0-35.0The [facility] HospitalComment on above:Order Comment: No: Do not add to previous drawPerformed By: #### 38070 #### [facility] [address] [place] [address], [facility]IST[facility] HOSPITALMCV (RBC) [Entitic vol]91.1 eJYhkqix12.0-98.0The [facility] HospitalComment on above:Order Comment: No: Do not add to previous drawPerformed By: #### [id number] #### [facility] [address] [place] [address], USAMonocytes (Bld) [#/Vol]1.1 10*3/uLHigh0.1-1.0The [facility] HospitalComment on above:Order Comment: No: Do not add to previous drawPerformed By: #### [id number] #### [facility] [address] [place] [address], HMNSLTQE54.4 %High5.0-12.0The [facility] HospitalComment on above:Order Comment: No: Do not add to previous drawPerformed By: #### 88412 #### [facility] [address] [place] [address], USANeutrophils/100 WBC (Bld)62.9 %Nkcuzd11.0-72.0The [facility] HospitalComment on above:Order Comment: No: Do not add to previous drawPerformed By: #### [id number] #### [facility] [address] [place] [address], USANucleated RBC/100 WBC (Bld) [Ratio]0 %Normal0-0The [facility] HospitalComment on above:Order Comment: No: Do not add to previous drawPerformed By: #### 55978 #### [facility] [address] [place] [address], USAPLAT YBU087 10*3/nAJzexbo677-768Zmq [facility] HospitalComment on above:Order Comment: No: Do not add to previous draw Performed By: #### [id number] #### [facility] [address] [place] [address], USARBC (Bld) [#/Vol]3.50 10*6/uLLow4.20-5.70The [facility] HospitalComment on above:Order Comment: No: Do not add to previous drawPerformed By: #### 35011 #### [facility] [address] [place] [address], USAWBC (Bld) [#/Vol]8.03 10*3/uLNormal4.00-10.60The [facility] HospitalComment on above:Order Comment: No: Do not add to previous drawPerformed By: #### 71330 #### [facility] [address] [place] [address], USAPOC GLUCOSE LABon 66-00-6056Bwujvbo [Mass/Vol]192 mg/dLHigh 70-100The [facility] HospitalComment on above:Performed By: #### 23200, 22901 #### [facility] [address] [place] [address], USAGlucose [Mass/Vol]153 mg/nETntm83-001Vds [facility] HospitalComment on above:Performed By: #### 67002, 36091 #### [facility] [address] [place] [address], USAGlucose [Mass/Vol]80 mg/kLKjzxin84-424Wqr [facility] HospitalComment on above:Performed By: #### 17822, 78828 #### [facility] [address] [place] [address], USAGlucose [Mass/Vol]48 mg/dLCritically joi76-743Zcz [facility] HospitalComment on above:Order Comment: Left Peural EffusionPerformed By: #### 51905 ####[facility] [place] [address], USAGlucose [Mass/Vol]120 mg/lZJqcl20-490Qnc [facility] HospitalComment on above:Performed By: #### 29088 #### [facility] [address] [place] [address], USAGlucose [Mass/Vol]112 mg/kJLsio20-984Icj [facility] HospitalComment on above:Performed By: #### 34540, 67401 #### [facility] [address] [facility] [place] [address], [facility]OSPITALPOC SARS COV2 ANTIGEN NEGATIVEon 70-12-5355FKR SARS COV2 ANTIGEN NEGCANCELEDNormalNEGATIVEThe [facility] HospitalComment on above:Result Comment: The released value NEGATIVE was canceled by ULISES on 07/19/2020 07:11Performed By: #### [id number] #### [facility] [address] [place] [address], [facility]ITALPOC SARS COV2 ANTIGEN NEGNegativeNormalNEGATIVEThe [facility] HospitalComment on above:Result Comment: Negative Results are [...] Compliance, or Certificate of Accreditation.Performed By: #### [id number] #### [facility] [address] [place] [address], USABASIC METABOLIC PANELon 83-37-5084Hlrmhei [Mass/Vol]8.2 mg/dLLow8.6-10.3The [facility] HospitalComment on above:Order Comment: No: Do not add to previous drawPerformed By: #### 75270 #### [facility] [address] [place] [address], USAChloride [Moles/Vol]101 mmol/VAupqak42-658Xml [facility] HospitalComment on above:Order Comment: No: Do not add to previous drawPerformed By: #### 87203 #### [facility] [address] [place] [address], USACO2 [Moles/Vol]25 mmol/QTyfosr33-04Mzq [facility] HospitalComment on above:Order Comment: No: Do not add to previous draw Performed By: #### [id number] #### [facility] [address] [place] [address], USACreatinine [Mass/Vol]3.64 mg/dLHigh0.70-1.30The [facility] HospitalComment on above:Order Comment: No: Do not add to previous drawPerformed By: #### 14566 #### [facility] [address] [place] [address], USAeGFR- Xhsvjing61 ml/min/1.73sq mAbnormal>60The [facility] HospitalComment on above:Order Comment: No: Do not add to previous drawPerformed By: #### [id number] #### [facility] [address] [place] [address], USAeGFR- non- Zaiuxxno50 ml/min/1.73sq mAbnormal>60The [facility] HospitalComment on above:Order Comment: No: Do not add to previous drawPerformed By: #### 45468 #### [facility] [address] [place] [address], USAGlucose [Mass/Vol]124 mg/fYOsdb57-212Jyp [facility] HospitalComment on above:Order Comment: No: Do not add to previous drawPerformed By: #### [id number] #### [facility] [address] [place] [address], USAPotassium [Moles/Vol]4.3 mmol/LNormal3.5-5.1The [facility] HospitalComment on above:Order Comment: No: Do not add to previous drawPerformed By: #### 40024 #### [facility] [address] [place] [address], USASodium [Moles/Vol]134 mmol/MVvn687-156Bdp [facility] HospitalComment on above:Order Comment: No: Do not add to previous drawPerformed By: #### 35193 #### [facility] [address] [place] [address], USAUrea nitrogen [Mass/Vol]36 mg/dLHigh7-25The [facility] HospitalComment on above:Order Comment: No: Do not add to previous drawPerformed By: #### 49063 #### [facility] [address] [place] [address], USACBC W/DIFFon 10-67-2021AXG IMM GRANS0.2 10*3/uLNormal 0.0-0.2The [facility] HospitalComment on above:Order Comment: No: Do not add to previous drawPerformed By: #### 45950 #### [facility] [address] [place] [address], USAABS NEUTROPHILS5.8 10*3/uLNormal1.6-7.6The [facility] HospitalComment on above:Order Comment: No: Do not add to previous drawPerformed By: #### 60063 #### [facility] [address] [place] [id number], USABasophils (Bld) [#/Vol]0.1 10*3/uLNormal0.0-0.2The [facility] HospitalComment on above:Order Comment: No: Do not add to previous drawPerformed By: #### 98539 #### [facility] [address] [facility] [place] [address], USABasophils/100 WBC (Bld)0.6 %Normal0.0-1.0The [facility] HospitalComment on above:Order Comment: No: Do not add to previous drawPerformed By: #### 61326 #### [facility] [address] [facility] [place] [address], USAEosinophils (Bld) [#/Vol]0.6 10*3/uLHigh0.0-0.5The [facility] HospitalComment on above:Order Comment: No: Do not add to previous drawPerformed By: #### [id number] #### [facility] [address] [facility] [place] [address], USAEosinophils/100 WBC (Bld)7.0 %High0.0-6.0The [facility] HospitalComment on above:Order Comment: No: Do not add to previous drawPerformed By: #### 79648 #### [facility] [address] [facility] [place] [address], USAErythrocyte distribution width (RBC) [Ratio]14.8 %Normal 11.5-15.0The [facility] HospitalComment on above:Order Comment: No: Do not add to previous drawPerformed By: #### 53464 #### [facility] [address] [facility] [place] [address], USAHematocrit (Bld) [Volume fraction]30.0 %Low39.0-50.0The [facility] HospitalComment on above:Order Comment: No: Do not add to previous drawPerformed By: #### 41342 #### [facility] [address] [place] [address], USAHemoglobin (Bld) [Mass/Vol]9.2 g/dLLow13.0-17.0The [facility] HospitalComment on above:Order Comment: No: Do not add to previous drawPerformed By: #### 74058 #### [facility] [address] [address], USAIMMATURE GRANS1.7 %High0.0-1.0The [facility] HospitalComment on above:Order Comment: No: Do not add to previous draw Performed By: #### 71801 #### [facility] [address] [place] [address], USALymphocytes (Bld) [#/Vol]1.3 10*3/uLNormal1.2-4.0The [facility] HospitalComment on above:Order Comment: No: Do not add to previous drawPerformed By: #### [id number] #### [facility] [address] [address], USALymphocytes/100 WBC (Bld)14.3 %Low20.0-45.0The [facility] HospitalComment on above:Order Comment: No: Do not add to previous drawPerformed By: #### [id number] #### [facility] [address] [place] [address], USAMCH (RBC) [Entitic mass]27.3 iaWrntmh75.0-33.0The [facility] HospitalComment on above:Order Comment: No: Do not add to previous drawPerformed By: #### 15225 #### [facility] [address] [place] [address], [facility] HOSPITALMCHC (RBC) [Mass/Vol]30.7 g/dLLow32.0-35.0The [facility] HospitalComment on above:Order Comment: No: Do not add to previous drawPerformed By: #### 93516 #### [facility] [address] [place] [address], [facility] HOSPITALMCV (RBC) [Entitic vol]89.0 uXEgdhpc49.0-98.0The [facility] HospitalComment on above:Order Comment: No: Do not add to previous drawPerformed By: #### 16480 #### [facility] [address] [place] [address], USAMonocytes (Bld) [#/Vol]1.0 10*3/uLNormal0.1-1.0The [facility] HospitalComment on above:Order Comment: No: Do not add to previous drawPerformed By: #### 57347 #### [facility] [address] [place] [address], TDEBLUVH29.9 %Normal5.0-12.0The [facility] HospitalComment on above:Order Comment: No: Do not add to previous drawPerformed By: #### [id number] #### [facility] [address] [address], USANeutrophils/100 WBC (Bld)65.5 %Jgaaym04.0-72.0The [facility] HospitalComment on above:Order Comment: No: Do not add to previous drawPerformed By: #### 95556 #### [facility] [address] [place] [address], USANucleated RBC/100 WBC (Bld) [Ratio]0 %Normal0-0The [facility] HospitalComment on above:Order Comment: No: Do not add to previous drawPerformed By: #### 79924 #### [facility] [address] [place] [address], USAPLAT AQS074 10*3/dKPphqcp137-911Kzq [facility] HospitalComment on above:Order Comment: No: Do not add to previous draw Performed By: #### 91032 #### [facility] [address] [place] [address], USARBC (Bld) [#/Vol]3.37 10*6/uLLow4.20-5.70The [facility] HospitalComment on above:Order Comment: No: Do not add to previous drawPerformed By: #### 80021 #### [facility] [address] [place] [address], USAWBC (Bld) [#/Vol]8.86 10*3/uLNormal4.00-10.60The [facility] HospitalComment on above:Order Comment: No: Do not add to previous drawPerformed By: #### 12697 #### [facility] [address] [place] [address], USAPOC GLUCOSE LABon 71-56-3254Cbvydsz [Mass/Vol]101 mg/dLHigh 70-100The [facility] HospitalComment on above:Performed By: #### 70835, 14780 #### [facility] [address] [place] [address], USAGlucose [Mass/Vol]76 mg/xKOgqtyo03-380Iig [facility] HospitalComment on above:Performed By: #### 41347, 09732 #### [facility] [address] [place] [address], USAGlucose [Mass/Vol]75 mg/xCHysgkm58-154Pou [facility] HospitalComment on above:Performed By: #### 82919 ####[facility] [place] [address], USAGlucose [Mass/Vol] 198 mg/aHElho33-166Sif [facility] HospitalComment on above: Performed By: #### 21554 ####[facility] [place] [address], USAGlucose [Mass/Vol]205 mg/gOSegj64-025Jmw [facility] HospitalComment on above:Performed By: #### 78239 #### [facility] [address] [place] [address], USAGlucose [Mass/Vol]187 mg/cOTwzy80-085Tnl [facility] HospitalComment on above:Performed By: #### 77288, 97133 #### [facility] [address] [place] [address], USAGlucose [Mass/Vol]131 mg/hWUeyi65-141Dtj [facility] HospitalComment on above:Performed By: #### 00523 #### [facility] [address] [place] [address], USAGlucose [Mass/Vol]75 mg/vPHxysby28-840Vcy [facility] HospitalComment on above:Performed By: #### 39960 #### [facility] [address] [place] [address], USAGlucose [Mass/Vol]69 mg/jMYop03-791Qir [facility] HospitalComment on above:Performed By: #### 81273 ####[facility] [place] [address], USABASIC METABOLIC PANELon 55-57-6079Xbbhuxs [Mass/Vol]8.4 mg/dLLow8.6-10.3The [facility] HospitalComment on above:Order Comment: No: Do not add to previous draw Performed By: #### 92893 #### [facility] [address] [place] [address], USAChloride [Moles/Vol]105 mmol/NOmwpkg28-714Qwm [facility] HospitalComment on above:Order Comment: No: Do not add to previous drawPerformed By: #### [id number] #### [facility] [address] [place] [address], USACO2 [Moles/Vol]24 mmol/VWcjlmy25-92Mgn [facility] HospitalComment on above:Order Comment: No: Do not add to previous draw Performed By: #### 24813 #### [facility] [address] [place] [address], USACreatinine [Mass/Vol]4.14 mg/dLHigh0.70-1.30The [facility] HospitalComment on above:Order Comment: No: Do not add to previous drawPerformed By: #### 36872 #### [facility] [address] [place] [address], USAeGFR- Duucenpe65 ml/min/1.73sq mAbnormal>60The [facility] HospitalComment on above:Order Comment: No: Do not add to previous drawPerformed By: #### [id number] #### [facility] [address] [place] [address], USAeGFR- non- Dmjsvltq34 ml/min/1.73sq mAbnormal>60The [facility] HospitalComment on above:Order Comment: No: Do not add to previous drawPerformed By: #### [id number] #### [facility] [address] [place] [address], USAGlucose [Mass/Vol]127 mg/aZJskt65-902Hee [facility] HospitalComment on above:Order Comment: No: Do not add to previous drawPerformed By: #### [id number] #### [facility] [address] [place] [address], USAPotassium [Moles/Vol]4.0 mmol/LNormal3.5-5.1The [facility] HospitalComment on above:Order Comment: No: Do not add to previous drawPerformed By: #### [id number] #### [facility] [address] [place] [address], USASodium [Moles/Vol]136 mmol/SEepiam996-745Oxr [facility] HospitalComment on above:Order Comment: No: Do not add to previous drawPerformed By: #### [id number] #### [facility] [address] [place] [address], USAUrea nitrogen [Mass/Vol]35 mg/dLHigh7-25The [facility] HospitalComment on above:Order Comment: No: Do not add to previous drawPerformed By: #### 92027 #### [facility] [address] [place] [address], USACBC COMPLETE BLOOD COUNTon 34-93-4130Mmeidcjtsmu distribution width (RBC) [Ratio]14.6 %Lhrjfg65.5-15.0The [facility] HospitalComment on above:Order Comment: No: Do not add to previous draw Performed By: #### [id number] #### [facility] [address] [address], USAHematocrit (Bld) [Volume fraction]31.8 %Low39.0-50.0The [facility] HospitalComment on above:Order Comment: No: Do not add to previous drawPerformed By: #### 25910 #### [facility] [address] [place] [address], USAHemoglobin (Bld) [Mass/Vol]9.7 g/dLLow13.0-17.0The [facility] HospitalComment on above:Order Comment: No: Do not add to previous drawPerformed By: #### [id number] #### [facility] [address] [place] [address], USAMCH (RBC) [Entitic mass]27.2 lgDftfdp66.0-33.0The [facility] HospitalComment on above:Order Comment: No: Do not add to previous drawPerformed By: #### [id number] #### [facility] [address] [place] [address], [facility] HOSPITALMCHC (RBC) [Mass/Vol]30.5 g/dLLow32.0-35.0The [facility] HospitalComment on above:Order Comment: No: Do not add to previous drawPerformed By: #### [id number] #### [facility] [address] [place] [address], [facility] HOSPITALMCV (RBC) [Entitic vol]89.3 gKUbmnhx86.0-98.0The [facility] HospitalComment on above:Order Comment: No: Do not add to previous drawPerformed By: #### 59915 #### [facility] [address] [place] [address], USANucleated RBC/100 WBC (Bld) [Ratio]0 %Normal0-0The [facility] HospitalComment on above:Order Comment: No: Do not add to previous drawPerformed By: #### [id number] #### [facility] [address] [place] [address], USAPLAT [id number] 10*3/jDVhfzre686-538Qbc [facility] HospitalComment on above:Order Comment: No: Do not add to previous draw Performed By: #### [id number] #### [facility] [address] [address], USARBC (Bld) [#/Vol]3.56 10*6/uLLow4.20-5.70The [facility] HospitalComment on above:Order Comment: No: Do not add to previous drawPerformed By: #### 97254 #### [facility] [address] [place] [address], USAWBC (Bld) [#/Vol]8.88 10*3/uLNormal4.00-10.60The [facility] HospitalComment on above:Order Comment: No: Do not add to previous drawPerformed By: #### 28481 #### [facility] [address] [place] [address], USAPOC GLUCOSE LABon 25-37-9552Bcdkwxg [Mass/Vol]94 mg/dL Vycrkj72-468Xwo [facility] HospitalComment on above:Performed By: #### 64406 #### [facility] [address] [place] [address], USAGlucose [Mass/Vol]62 mg/iUNva98-504Hmw [facility] HospitalComment on above:Performed By: #### 40017, 24523 #### [facility] [address] [place] [address], USAGlucose [Mass/Vol]80 mg/xGGhoqdc31-725Ari [facility] HospitalComment on above:Performed By: #### 31176, 70999 #### [facility] [address] [place] [address], USAGlucose [Mass/Vol]99 mg/qAXsxmeo46-812Mkj [facility] HospitalComment on above:Performed By: #### 85194 ####[facility] [place] [address], USAGlucose [Mass/Vol] 203 mg/zFPdha24-893Jjv [facility] HospitalComment on above: Performed By: #### 98518 ####[facility] [place] [address], USAGlucose [Mass/Vol]151 mg/iNFucp72-322Dtb [facility] HospitalComment on above:Performed By: #### 92459, 34158 #### [facility] [address] [place] [address], USAANAon 38-74-4347VZM SCREEN<1:40Normal<1:40,1:40The [facility] HospitalComment on above:Order Comment: No: Do not add to previous drawPerformed By: #### [id number] #### [facility] [address] [place] [address], USAANCA IGG WITH REFLEX [id number] 06-68-2602RZSS<1:20Normal <1:20The [facility] HospitalComment on above:Order Comment: No: Do not [...] collagen vascular disease or arthritis. Performed By: [employer] [address] [place] [id number] [employer] Operator: CATHY Ramirez METABOLIC PANELon 07-15-2020 Calcium [Mass/Vol]8.5 mg/dLLow8.6-10.3The [facility] Comment on above:Order Comment: No: Do not add to previous drawPerformed By: #### [id number] #### [facility] [address] [place] [address], USAChloride [Moles/Vol]103 mmol/GCzqmwt09-818Zhm [facility] HospitalComment on above:Order Comment: No: Do not add to previous drawPerformed By: #### 44099 #### [facility] [address] [place] [address], USACO2 [Moles/Vol]23 mmol/KOpicrv39-31Nae [facility] HospitalComment on above:Order Comment: No: Do not add to previous draw Performed By: #### 45003 #### [facility] [address] [place] [address], USACreatinine [Mass/Vol]4.38 mg/dLHigh0.70-1.30The [facility] HospitalComment on above:Order Comment: No: Do not add to previous drawPerformed By: #### 41436 #### [facility] [address] [place] [address], USAeGFR- Znrqjceb94 ml/min/1.73sq mAbnormal>60The [facility] HospitalComment on above:Order Comment: No: Do not add to previous drawPerformed By: #### 22836 #### [facility] [address] [place] [address], USAeGFR- non- Wffazqqk37 ml/min/1.73sq mAbnormal>60The [facility] HospitalComment on above:Order Comment: No: Do not add to previous drawPerformed By: #### 22485 #### [facility] [address] [place] [address], USAGlucose [Mass/Vol]154 mg/mDTerf82-693Hpd [facility] HospitalComment on above:Order Comment: No: Do not add to previous drawPerformed By: #### [id number] #### [facility] [address] [place] [address], USAPotassium [Moles/Vol]4.5 mmol/LNormal3.5-5.1The [facility] HospitalComment on above:Order Comment: No: Do not add to previous drawPerformed By: #### 60565 #### [facility] [address] [place] [address], USASodium [Moles/Vol]135 mmol/OIkv078-627Cfe [facility] HospitalComment on above:Order Comment: No: Do not add to previous drawPerformed By: #### [id number] #### [facility] [address] [place] [address], USAUrea nitrogen [Mass/Vol]32 mg/dLHigh7-25The [facility] HospitalComment on above:Order Comment: No: Do not add to previous drawPerformed By: #### 90985 #### [facility] [address] [place] [id number], [facility] HOSPITALC REACTIVE PROTEINon 63-45-6053GRY [Mass/Vol]138.0 mg/LHigh 0.0-7.0The [facility] HospitalComment on above:Order Comment: FROM [id number] By: #### [id number] #### [facility] [address] [place] [id number], [facility] HOSPITALCBC W/DIFFon 16-92-1144HCJ IMM GRANS0.1 10*3/uLNormal 0.0-0.2The [facility] HospitalComment on above:Performed By: #### 67633 #### [facility] [address] [place] [address], USAABS NEUTROPHILS7.3 10*3/uLNormal1.6-7.6The [facility] HospitalComment on above:Performed By: #### 53735 #### [facility] [address] [place] [address], USABasophils (Bld) [#/Vol]0.0 10*3/uLNormal0.0-0.2The [facility] HospitalComment on above:Performed By: #### 45456 #### [facility] [address] [place] [address], USABasophils/100 WBC (Bld)0.3 %Normal0.0-1.0The [facility] HospitalComment on above:Performed By: #### 02318 #### [facility] [address] [address], USAEosinophils (Bld) [#/Vol]0.5 10*3/uLNormal0.0-0.5The [facility] HospitalComment on above:Performed By: #### 62585 #### [facility] [address] [facility] [place] [address], USAEosinophils/100 WBC (Bld)5.1 %Normal0.0-6.0The [facility] HospitalComment on above:Performed By: #### 19699 #### [facility] [address] [facility] [place] [address], USAErythrocyte distribution width (RBC) [Ratio]14.9 %Normal 11.5-15.0The [facility] HospitalComment on above:Performed By: #### 84274 #### [facility] [address] [facility] [place] [address], USAHematocrit (Bld) [Volume fraction]33.0 %Low39.0-50.0The [facility] HospitalComment on above:Performed By: #### 92815 #### [facility] [address] [facility] [place] [address], USAHemoglobin (Bld) [Mass/Vol]9.9 g/dLLow13.0-17.0The [facility] HospitalComment on above:Performed By: #### 44750 #### [facility] [address] [facility] [place] [address], USAIMMATURE GRANS1.4 %High0.0-1.0The [facility] HospitalComment on above:Performed By: #### 61593 #### [facility] [address] [facility] [place] [address], USALymphocytes (Bld) [#/Vol]1.1 10*3/uLLow1.2-4.0The [facility] HospitalComment on above:Performed By: #### 94746 #### [facility] [address] [place] [address], USALymphocytes/100 WBC (Bld)11.0 %Low20.0-45.0The [facility] HospitalComment on above:Performed By: #### 24415 #### [facility] [address] [place] [address], [facility] (RBC) [Entitic mass]27.0 muBhpcef26.0-33.0The [facility] HospitalComment on above:Performed By: #### 14761 #### [facility] [address] [place] [address], [facility] HOSPITALMCHC (RBC) [Mass/Vol]30.0 g/dLLow32.0-35.0The [facility] HospitalComment on above:Performed By: #### 69475 #### [facility] [address] [address], [facility] HOSPITALMCV (RBC) [Entitic vol]90.2 oAQwxvsq98.0-98.0The [facility] HospitalComment on above:Performed By: #### 44848 #### [facility] [address] [address], USAMonocytes (Bld) [#/Vol]1.1 10*3/uLHigh0.1-1.0The [facility] HospitalComment on above:Performed By: #### 97622 #### [facility] [address] [place] [address], UEDNLHMW81.9 %Normal5.0-12.0The [facility] HospitalComment on above:Performed By: #### 48423 #### [facility] [address] [place] [address], USANeutrophils/100 WBC (Bld)71.3 %Jdjeiw59.0-72.0The [facility] HospitalComment on above:Performed By: #### 06040 #### [facility] [address] [place] [address], USANucleated RBC/100 WBC (Bld) [Ratio]0 %Normal0-0The [facility] HospitalComment on above:Performed By: #### 30848 #### [facility] [address] [place] [address], USAPLAT SKE186 10*3/qTWcfpxv413-666Gtz [facility] HospitalComment on above:Performed By: #### 96223 #### [facility] [address] [place] [address], USARBC (Bld) [#/Vol]3.66 10*6/uLLow4.20-5.70The [facility] HospitalComment on above:Performed By: #### 92339 #### [facility] [address] [place] [address], USAWBC (Bld) [#/Vol]10.23 10*3/uLNormal4.00-10.60The [facility] HospitalComment on above:Performed By: #### 44059 #### [facility] [address] [address], USACOMPLEMENT [id number] 3108 mg/dYRfbvpj11-[address] [facility] HospitalComment on above:Order Comment: No: Do not add to previous drawPerformed By: #### 90073 #### [facility] [address] [place] [address], USACOMPLEMENT 431-87-8456MSLSPFZITB 431 mg/kNNaorrc84-07Tvj [facility] HospitalComment on above:Order Comment: No: Do not add to previous drawPerformed By: #### 83752 #### [facility] [address] [place] [address], USAGLOMR BASMT MEMBRon 31-26-2790NDTGD BASMT MBRNNegative AbnormalNEGATIVEThe [facility] HospitalComment on above:Order Comment: No: Do not add to previous drawResult Comment: Note: The performance characteristics of this test were validated by the [facility] laboratory. It has not been cleared or approved by the U.S. Food and Drug Administration. The results are not intended to be used as the sole means for clinical diagnosis or patient management decisions. [facility] is authorized under CLIA to perform high-complexity testing.Performed By: #### [id number] #### [facility] [address] [facility] [place] [address], USAPOC GLUCOSE LABon 90-72-9944Fscyqce [Mass/Vol]107 mg/dLHigh 70-100The [facility] HospitalComment on above:Performed By: #### 10758, 84240 #### [facility] [address] [facility] [place] [address], USAGlucose [Mass/Vol]84 mg/aGNuauhg99-728Pzn [facility] HospitalComment on above:Performed By: #### 66857 #### [facility] [address] [facility] [place] [address], USAGlucose [Mass/Vol]164 mg/bKOybr85-460Fip [facility] HospitalComment on above:Performed By: #### 82174 ####[facility] [facility] [place] [place] [address], USAGlucose [Mass/Vol] 141 mg/eHYqan78-555Tab [facility] HospitalComment on above: Performed By: #### 30099, 01659 #### [facility] [address] [facility] [place] [address], USAPORTABLE CHEST 1 VIEWon 76-76-5041ROHJQGLX CHEST [address] [facility] Department of Radiology [address] [place] [address] Patient Name: RASHARD LYMAN : 1960 Sex: M Age: Race: White Pt. Location: [address] [place] [address] Patient Status: I Ordered Date: 07/15/2020 7:00:00 [...] exam. Electronically signed: Nir Swartz. Transcribed by: [email or web address], User Resident: Electronically Signed by: NIR SWARTZ @ 07/15/2020 07:34 AMNormalDoctors HospitalComment on above:Order Comment: evaluate for Effusion*AFB CULTUREon 07-14-2020*AFB CULTUREClinical Report: (D) Specimen/Source: FLUID/PLEURAL FLUID Collected: 07/14/2020 13:03 Status: Final Last Updated: 08/26/2020 08:52 (1) Left Peural Effusion AFB (Final) No Acid Fast Bacilli Seen CULT RES (Final) No growth after 42 days of incubationThe Christ HospitalComment on above:Order Comment: Left Peural EffusionPerformed By: #### 11653 #### [facility] [address]*ANAEROBIC CULTUREon 07-14-2020*ANAEROBIC CULTUREClinical Report: (D) Specimen/Source: FLUID/PLEURAL FLUID Collected: 07/14/2020 13:03 Status: Final Last Updated: 07/19/2020 08:08 (1) Left Peural Effusion CULT RES (Final) No Anaerobes Isolated 5 DaysThe Christ HospitalComment on above:Order Comment: Left Peural EffusionPerformed By: #### 57555 #### [facility] [address]*BODY FLUID CULTUREon 07-14-2020*BODY FLUID CULTUREClinical Report: (D) Specimen/Source: FLUID/PLEURAL FLUID Collected: 07/14/2020 13:03 Status: Final Last Updated: 07/19/2020 07:53 (1) Left Peural Effusion GRAM (Final) Polys PRESENT No Bacteria Seen CYTOSPUN (Final) This Gram Stain was done on a cytocentrifuged specimen CULT RES (Final) No Growth Day 5NoBarney Children's Medical CenterComment on above: Order Comment: Left Peural EffusionPerformed By: #### [id number] #### [address]*FUNGAL CULTUREon 07-14-2020*FUNGAL CULTUREClinical Report: (D) Specimen/Source: FLUID/PLEURAL FLUID Collected: 07/14/2020 13:03 Status: Final Last Updated: 08/15/2020 08:41 (1) Left Peural Effusion FS (Final) No Yeast or Fungal Elements Seen CULT RES (Final) Culture negative for fungusThe Christ HospitalComment on above:Order Comment: Left Peural EffusionPerformed By: #### [id number] #### [facility] [address]*VIRAL NON RESPIRATORY CULTUREon 82-97-1816Cjxbygak identified Cx Nom (Unsp spec)NormalThe [facility] Comment on above:Order Comment: Left Peural [...] Virus detected by Enzyme Linked Virus Inducible S.[facility] Healthcare SystemComment on above: Order Comment: Left Peural EffusionResult Comment: Test Performed by [facility] [address] - Released 07/20/2020 14:10 Result changed by IF on 07/17/2020 14:17. The previous value was Test Performed by [facility] [address] [phone].. Result changed by IF on 07/18/2020 12:17. The previous value was Test Performed by [facility] [address] [phone].. Result changed by IF on 07/20/2020 14:10. The previous value was Test Performed by [facility] [address] [phone]..REPORT STATUSFINAL 07/20/2020[facility] Comment on above:Order Comment: Left Peural EffusionResult Comment: Result changed by IF on 07/20/2020 14:10. The previous value was Preliminary.APTTon 27-88-9418dAUZ Coag (Bld) [Time]41.7 sHigh25.0-35.0The [facility] HospitalComment on above:Order Comment: No: Do not [...] BE USED FOR THIS PURPOSE.Performed By: #### [id number] #### [facility] [address] [place] [address], USAaPTT Coag (Bld) [Time]44.9 sHigh25.0-35.0The [facility] HospitalComment on above:Order Comment: No: Do not [...] BE USED FOR THIS PURPOSE.Performed By: #### 94725, 62251 #### [facility] [address] [place] [address], USABASIC METABOLIC PANELon 22-68-2856Jboavgu [Mass/Vol]8.6 mg/dLNormal8.6-10.3The [facility] HospitalComment on above:Order Comment: No: Do not add to previous drawPerformed By: #### 61002 #### [facility] [address] [place] [address], USAChloride [Moles/Vol]102 mmol/NNvtpjt95-474Wdh [facility] HospitalComment on above:Order Comment: No: Do not add to previous drawPerformed By: #### 16945 #### [facility] [address] [place] [address], USACO2 [Moles/Vol]24 mmol/VNukhwr04-31Iab [facility] HospitalComment on above:Order Comment: No: Do not add to previous draw Performed By: #### 04510 #### [facility] [address] [place] [address], USACreatinine [Mass/Vol]3.44 mg/dLHigh0.70-1.30The [facility] HospitalComment on above:Order Comment: No: Do not add to previous drawPerformed By: #### 08575 #### [facility] [address] [place] [address], USAeGFR- Merijtlk24 ml/min/1.73sq mAbnormal>60The [facility] HospitalComment on above:Order Comment: No: Do not add to previous drawPerformed By: #### 85545 #### [facility] [address] [place] [address], USAeGFR- non- Mmaahuel66 ml/min/1.73sq mAbnormal>60The [facility] HospitalComment on above:Order Comment: No: Do not add to previous drawPerformed By: #### 75546 #### [facility] [address] [place] [address], USAGlucose [Mass/Vol]355 mg/fHTjfn45-734Nhc [facility] HospitalComment on above:Order Comment: No: Do not add to previous drawPerformed By: #### 53449 #### [facility] [address] [place] [address], USAPotassium [Moles/Vol]4.6 mmol/LNormal3.5-5.1The [facility] HospitalComment on above:Order Comment: No: Do not add to previous drawPerformed By: #### 41370 #### [facility] [address] [place] [address], USASodium [Moles/Vol]133 mmol/MLmu933-890Els [facility] HospitalComment on above:Order Comment: No: Do not add to previous drawPerformed By: #### 41242 #### [facility] [address] [place] [address], USAUrea nitrogen [Mass/Vol]27 mg/dLHigh7-25The [facility] HospitalComment on above:Order Comment: No: Do not add to previous drawPerformed By: #### 58104 #### [facility] [address] [address], USABNP (B-TYPE NATRIURETIC PEPTIDE)on 39-58-0587Unebejdpudh peptide B (Bld) [Mass/Vol]19 pg/mLNormal0-100The [facility] HospitalComment on above:Order Comment: Left Peural EffusionResult Comment: Given the appropriate clinical setting a BNP result of >100 pg/mL indicates congestive heart failure.Performed By: #### 28966 #### [facility] [address] [facility] [place] [address], USACBC COMPLETE BLOOD COUNTon 55-63-0930Iyrrxntwylx distribution width (RBC) [Ratio]14.6 %Pgwedw65.5-15.0The [facility] HospitalComment on above:Order Comment: No: Do not add to previous draw Performed By: #### 39204 #### [facility] [address] [facility] [place] [address], USAHematocrit (Bld) [Volume fraction]35.3 %Low39.0-50.0The [facility] HospitalComment on above:Order Comment: No: Do not add to previous drawPerformed By: #### 33875 #### [facility] [address] [facility] [place] [address], USAHemoglobin (Bld) [Mass/Vol]11.1 g/dLLow13.0-17.0The [facility] HospitalComment on above:Order Comment: No: Do not add to previous drawPerformed By: #### 89736 #### [facility] [address] [facility] [place] [address], USAMCH (RBC) [Entitic mass]27.5 uzVegmcq50.0-33.0The [facility] HospitalComment on above:Order Comment: No: Do not add to previous drawPerformed By: #### [id number] #### [facility] [address] [address], [facility] HOSPITALMCHC (RBC) [Mass/Vol]31.4 g/dLLow32.0-35.0The [facility] HospitalComment on above:Order Comment: No: Do not add to previous drawPerformed By: #### [id number] #### [facility] [address] [address], [facility] HOSPITALMCV (RBC) [Entitic vol]87.6 sNOuofsi22.0-98.0The [facility] HospitalComment on above:Order Comment: No: Do not add to previous drawPerformed By: #### [id number] #### [facility] [address] [address], USANucleated RBC/100 WBC (Bld) [Ratio]0 %Normal0-0The [facility] HospitalComment on above:Order Comment: No: Do not add to previous drawPerformed By: #### [id number] #### [facility] [address] [address], USAPLAT GQV643 10*3/iQXeketk868-626Lcv [facility] HospitalComment on above:Order Comment: No: Do not add to previous draw Performed By: #### [id number] #### [facility] [address] [address], USARBC (Bld) [#/Vol]4.03 10*6/uLLow4.20-5.70The [facility] HospitalComment on above:Order Comment: No: Do not add to previous drawPerformed By: #### 10073 #### [facility] [address] [place] [address], USAWBC (Bld) [#/Vol]12.59 10*3/uLHigh4.00-10.60The [facility] HospitalComment on above:Order Comment: No: Do not add to previous drawPerformed By: #### [id number] #### [facility] [address] [place] [address], [facility] HOSPITALCBC W/DIFFon [id number] IMM GRANS0.2 10*3/uLNormal 0.0-0.2The [facility] HospitalComment on above:Order Comment: No: Do not add to previous drawPerformed By: #### [id number] #### [facility] [address] [place] [address], USAABS NEUTROPHILS7.9 10*3/uLHigh1.6-7.6The [facility] HospitalComment on above:Order Comment: No: Do not add to previous drawPerformed By: #### [id number] #### [facility] [address] [place] [address], USABasophils (Bld) [#/Vol]0.1 10*3/uLNormal0.0-0.2The [facility] HospitalComment on above:Order Comment: No: Do not add to previous drawPerformed By: #### 98615 #### [facility] [address] [facility] [place] [address], USABasophils/100 WBC (Bld)0.5 %Normal0.0-1.0The [facility] HospitalComment on above:Order Comment: No: Do not add to previous drawPerformed By: #### [id number] #### [facility] [address] [facility] [facility] [place] [address], USAEosinophils (Bld) [#/Vol]0.5 10*3/uLNormal0.0-0.5The [facility] HospitalComment on above:Order Comment: No: Do not add to previous drawPerformed By: #### [id number] #### [facility] [address] [facility] [place] [address], USAEosinophils/100 WBC (Bld)4.3 %Normal0.0-6.0The [facility] HospitalComment on above:Order Comment: No: Do not add to previous drawPerformed By: #### [id number] #### [facility] [address] [place] [id number], USAErythrocyte distribution width (RBC) [Ratio]14.6 %Normal 11.5-15.0The [facility] HospitalComment on above:Order Comment: No: Do not add to previous drawPerformed By: #### 55069 #### [facility] [address] [place] [address], USAHematocrit (Bld) [Volume fraction]34.2 %Low39.0-50.0The [facility] HospitalComment on above:Order Comment: No: Do not add to previous drawPerformed By: #### [id number] #### [facility] [address] [facility] [facility] [place] [address], USAHemoglobin (Bld) [Mass/Vol]10.3 g/dLLow13.0-17.0The [facility] HospitalComment on above:Order Comment: No: Do not add to previous drawPerformed By: #### [id number] #### [facility] [address] [facility] [place] [address], USAIMMATURE GRANS1.4 %High0.0-1.0The [facility] HospitalComment on above:Order Comment: No: Do not add to previous draw Performed By: #### [id number] #### [facility] [address] [facility] [facility] [place] [address], USALymphocytes (Bld) [#/Vol]1.3 10*3/uLNormal1.2-4.0The [facility] HospitalComment on above:Order Comment: No: Do not add to previous drawPerformed By: #### [id number] #### [facility] [address] [place] [address], USALymphocytes/100 WBC (Bld)11.3 %Low20.0-45.0The [facility] HospitalComment on above:Order Comment: No: Do not add to previous drawPerformed By: #### [id number] #### [facility] [address] [place] [address], [facility] (RBC) [Entitic mass]27.0 gmLsghvf07.0-33.0The [facility] HospitalComment on above:Order Comment: No: Do not add to previous drawPerformed By: #### [id number] #### [facility] [address] [place] [address], [facility] HOSPITALMCHC (RBC) [Mass/Vol]30.1 g/dLLow32.0-35.0The [facility] HospitalComment on above:Order Comment: No: Do not add to previous drawPerformed By: #### [id number] #### [facility] [address] [place] [address], [facility] (RBC) [Entitic vol]89.5 vQDxtiwq05.0-98.0The [facility] HospitalComment on above:Order Comment: No: Do not add to previous drawPerformed By: #### 60377 #### [facility] [address] [place] [address], USAMonocytes (Bld) [#/Vol]1.4 10*3/uLHigh0.1-1.0The [facility] HospitalComment on above:Order Comment: No: Do not add to previous drawPerformed By: #### [id number] #### [facility] [address] [place] [address], CPJFASCJ09.6 %High5.0-12.0The [facility] HospitalComment on above:Order Comment: No: Do not add to previous drawPerformed By: #### [id number] #### [facility] [address] [place] [address], USANeutrophils/100 WBC (Bld)69.9 %Gycjxa62.0-72.0The [facility] HospitalComment on above:Order Comment: No: Do not add to previous drawPerformed By: #### [id number] #### [facility] [address] [place] [address], USANucleated RBC/100 WBC (Bld) [Ratio]0 %Normal0-0The [facility] HospitalComment on above:Order Comment: No: Do not add to previous drawPerformed By: #### [id number] #### [facility] [address] [address], USAPLAT BSM624 10*3/sJYxpkec704-943Dxe [facility] HospitalComment on above:Order Comment: No: Do not add to previous draw Performed By: #### 81431 #### [facility] [address] [place] [address], USARBC (Bld) [#/Vol]3.82 10*6/uLLow4.20-5.70The [facility] HospitalComment on above:Order Comment: No: Do not add to previous drawPerformed By: #### 53592 #### [facility] [address] [place] [address], USAWBC (Bld) [#/Vol]11.28 10*3/uLHigh4.00-10.60The [facility] HospitalComment on above:Order Comment: No: Do not add to previous drawPerformed By: #### 35785 #### [facility] [address] [place] [address], USACOMP METABOLIC PANELon 78-45-5528Uipcqus [Mass/Vol]3.1 g/dL Low3.5-5.7The [facility] HospitalComment on above:Order Comment: No: Do not add to previous drawPerformed By: #### [id number] #### [facility] [address] [place] [address], USAALKALINE SACWBX42 IU/XPehoft83-017Aoi [facility] HospitalComment on above:Order Comment: No: Do not add to previous draw Performed By: #### 96942 #### [facility] [address] [place] [address], USAALT [Catalytic activity/Vol]8 U/LNormal7-52The [facility] HospitalComment on above:Order Comment: No: Do not add to previous drawPerformed By: #### 81298 #### [facility] [address] [place] [address], USAAST [Catalytic activity/Vol]11 U/LTux03-42Jzc [facility] HospitalComment on above:Order Comment: No: Do not add to previous drawPerformed By: #### [id number] #### [facility] [address] [place] [address], USABilirubin [Mass/Vol]0.3 mg/dLNormal0.3-1.0The [facility] HospitalComment on above:Order Comment: No: Do not add to previous drawPerformed By: #### [id number] #### [facility] [address] [place] [address], USACalcium [Mass/Vol]8.8 mg/dLNormal8.6-10.3The [facility] HospitalComment on above:Order Comment: No: Do not add to previous drawPerformed By: #### [id number] #### [facility] [address] [place] [address], USAChloride [Moles/Vol]101 mmol/HCnpxma65-878Wzl [facility] HospitalComment on above:Order Comment: No: Do not add to previous drawPerformed By: #### 50106 #### [facility] [address] [place] [address], USACO2 [Moles/Vol]22 mmol/FJkbilp99-60Ycd [facility] HospitalComment on above:Order Comment: No: Do not add to previous draw Performed By: #### 95009 #### [facility] [address] [place] [address], USACreatinine [Mass/Vol]3.38 mg/dLHigh0.70-1.30The [facility] HospitalComment on above:Order Comment: No: Do not add to previous drawPerformed By: #### [id number] #### [facility] [address] [place] [address], USAeGFR- Uscvtukk56 ml/min/1.73sq mAbnormal>60The [facility] HospitalComment on above:Order Comment: No: Do not add to previous drawPerformed By: #### 91077 #### [facility] [address] [place] [address], USAeGFR- non- Erwxcnfd62 ml/min/1.73sq mAbnormal>60The [facility] HospitalComment on above:Order Comment: No: Do not add to previous drawPerformed By: #### [id number] #### [facility] [address] [place] [address], USAGlucose [Mass/Vol]324 mg/iTXklz76-925Jcl [facility] HospitalComment on above:Order Comment: No: Do not add to previous drawPerformed By: #### 13278 #### [facility] [address] [place] [address], USAPotassium [Moles/Vol]4.5 mmol/LNormal3.5-5.1The [facility] HospitalComment on above:Order Comment: No: Do not add to previous drawPerformed By: #### 17945 #### [facility] [address] [place] [address], USAProtein [Mass/Vol]6.7 g/dLNormal6.0-8.3The [facility] HospitalComment on above:Order Comment: No: Do not add to previous drawPerformed By: #### [id number] #### [facility] [address] [place] [address], USASodium [Moles/Vol]131 mmol/ADlb635-809Lbo [facility] HospitalComment on above:Order Comment: No: Do not add to previous drawPerformed By: #### 00523 #### [facility] [address] [address], USAUrea nitrogen [Mass/Vol]27 mg/dLHigh7-25The [facility] HospitalComment on above:Order Comment: No: Do not add to previous drawPerformed By: #### 39439 #### [facility] [address] [address], USACREATININE URINE RANDOMon 91-13-0832Izacfoofvy (U) [Mass/Vol]101.0 mg/dLNoWayne Hospitale [facility] HospitalComment on above:Order Comment: No: Do not add to previous drawResult Comment: There are no established reference values for random urine specimensPerformed By: #### 63881 #### [facility] [address] [place] [address], USAFLUID CELL COUNTon 45-51-9443Fkiaoezjr/100 WBC (Bld)1 % NormalThe [facility] HospitalComment on above:Performed By: #### 85617 #### [facility] [address] [address], USAEosinophils/100 WBC (Bld)11 %NormalThe [facility] HospitalComment on above:Performed By: #### 55517 #### [facility] [address] [place] [address], USALymphocytes/100 WBC (Bld)49 %NormalThe [facility] HospitalComment on above:Performed By: #### 94018 #### [facility] [address] [place] [address], XEWFTHRQYYJNXR41 %NormalThe [facility] HospitalComment on above:Performed By: #### 50853 #### [facility] [address] [place] [address], USAOTHER F1Diff done by cytosSelect Medical Cleveland Clinic Rehabilitation Hospital, BeachwoodComment on above:Performed By: #### [id number] #### [facility] [address] [place] [address], USAOTHER R8Zpzdald by Mac Rodriguez M.D.NormalThe [facility] HospitalComment on above:Result Comment: Result changed by [facility] on 07/15/2020 13:33. The previous value was Preliminary report; verified report to follow.Performed By: #### [id number] #### [facility] [address] [place] [address], [id number] RBC/Wilson HealthComment on above:Performed By: #### 36222 #### [facility] [address] [place] [address], LPODUQL36 %NormalThe [facility] Comment on above:Performed By: #### 05673 #### [facility] [address] [place] [address], USASOURCEThoracentesisThe Christ HospitalComment on above:Performed By: #### 51868 #### [facility] [address] [place] [address], USATOTAL BGJFDB9FQyjzdaWzoThe [facility] Comment on above:Performed By: #### 19939 #### [facility] [address] [place] [address], [id number] WBC/uLNormalThe [facility] Comment on above:Result Comment: Some reference interval(s) and other method performance specifications have not been established for analytes on this body fluid. The test result must be integrated into the clinical context for interpretation.Performed By: #### 89732 #### [facility] [address] [place] [address], USAGLUCOSE FLUID MISCon 50-78-2620Fijspod [Mass/Vol]326 mg/dL NormalThe [facility] HospitalComment on above:Result Comment: The reference range and other method performance specifications have not been established for this test in fluids. the test result should be integrated into the clinical context for interpretation.Performed By: #### [id number] #### [facility] [address] [place] [address], USAHEMOGLOBIN A1Con 31-80-4769Dplvops [Moles/Vol]295 mmol/L NormalThe [facility] HospitalComment on above:Order Comment: Left Peural EffusionPerformed By: #### 10045 #### [facility] [address] [place] [address], QUUFzF3l (Bld) [Mass fraction]11.9 %High4.0-6.0The [facility] HospitalComment on above:Order Comment: Left Peural Effusion Performed By: #### 26739 #### [facility] [address] [place] [address], USAHEPATITIS B SURFACE ANTIGEN QUALon 09-54-8423DBC B SURF AG QUALNon-ReactiveNormalNONREACTIVEThe [facility] HospitalComment on above:Order Comment: No: Do not add to previous drawPerformed By: #### 84781 #### [facility] [address] [place] [address], USAHEPATITIS C ANTIBODYon 94-69-5068XGSJ-HCVNon-ReactiveNormal NONREACTIVEThe [facility] HospitalComment on above:Order Comment: No: Do not add to previous drawPerformed By: #### 28856 #### [facility] [address] [place] [address], USALDH BLOODon 09-37-4690KVW826 Units/VVvmtmn678-959Sxk [facility] HospitalComment on above:Order Comment: Left Peural EffusionPerformed By: #### 46997 #### [facility] [address] [place] [address], MBUONZ196 Units/WBtw833-824Iqn [facility] HospitalComment on above:Order Comment: No: Do not add to previous drawPerformed By: #### 77890 #### [facility] [address] [place] [address], USALDH FLUIDon [id number] Units/LNormalThe [facility] HospitalComment on above:Result Comment: The reference range and other method performance specifications have not been established for this test in fluids. the test result should be integrated into the clinical context for interpretation.Performed By: #### 76762 #### [facility] [address] [place] [address], USALIPID PROFILEon [id number] [Mass/Vol]95 mg/dLLow 120-200The [facility] HospitalComment on above:Order Comment: No: Do not add to previous drawResult Comment: CHOLESTEROL REFERENCE RANGE: 20 YEARS AND OLDER CARDIOVASCULAR RISK Less than 200 mg/dl Low Risk 200 to 239 mg/dl Borderline Risk 240 mg/dl and greater High RiskPerformed By: #### 47590 #### [facility] [address] [place] [address], USACholesterol in HDL [Mass/Vol]36 mg/hWUtwafx39-00Mon [facility] HospitalComment on above:Order Comment: No: Do not add to previous drawResult Comment: Slight variation in normal range could be due to gender and/or age. HDL CHOLESTEROL REFERENCE RANGE: 20 years and older Cardiovascular Risk > or =60 mg/dL Desirable 40 TO 59 mg/dL Low Risk <40 mg/dL High RiskPerformed By: #### 96476 #### [facility] [address] [address], USACholesterol in LDL [Mass/Vol]37 mg/dLNormal0-130The [facility] HospitalComment on above:Order Comment: No: Do not add to previous drawResult Comment: LDL IS A CALCULATION LDL IS ONLY VALID IF THE TRIG IS LESS THAN 400.Performed By: #### 15651 #### [facility] [address] [place] [address], USACholesterol.total/Cholesterol in HDL [Mass ratio]2.6 {ratio}Normal0.0-4.5The [facility] HospitalComment on above: Order Comment: No: Do not add to previous drawPerformed By: #### 20531 #### [facility] [address] [facility] [place] [address], USANON-HDL FOPWOCLERCA98 mg/dLNormalThe [facility] HospitalComment on above:Order Comment: No: Do not add to previous draw Performed By: #### 97928 #### [facility] [address] [facility] [place] [address], USATriglyceride [Mass/Vol]109 mg/oCJemyjf78-379Dqq [facility] HospitalComment on above:Order Comment: No: Do not add to previous drawResult Comment: TRIGLYCERIDE REFERENCE RANGE: 20 YEARS AND OLDER CARDIOVASCULAR RISK LESS THAN 150 mg/dl LOW RISK 150 TO 199 mg/dl BORDERLINE RISK 200 mg/dl AND GREATER HIGH RISKPerformed By: #### 52084 #### [facility] [address] [facility] [place] [address], USAVLDL CHOL22 mg/dLNormal0-40The [facility] HospitalComment on above:Order Comment: No: Do not add to previous drawPerformed By: #### 48008 #### [facility] [address] [facility] [place] [address], USAMAGNESIUM BLOODon 86-20-0742Yvldaacbg [Mass/Vol]2.1 mg/dL Normal1.9-2.7The [facility] HospitalComment on above:Order Comment: No: Do not add to previous drawPerformed By: #### 55807 #### [facility] [address] [place] [address], USAMagnesium [Mass/Vol]2.0 mg/dLNormal1.9-2.7The [facility] HospitalComment on above:Performed By: #### 46609 #### [facility] [address] [place] [address], USAPHOSPHORUS BLOODon [id number] [Mass/Vol]4.1 mg/dL Normal2.5-5.0The [facility] HospitalComment on above:Order Comment: No: Do not add to previous drawPerformed By: #### 66202 #### [facility] [address] [place] [address], USAPhosphate [Mass/Vol]4.0 mg/dLNormal2.5-5.0The [facility] HospitalComment on above:Performed By: #### 57556 #### [facility] [address] [place] [address], USAPOC GLUCOSE LABon [id number] [Mass/Vol]180 mg/dLHigh 70-100The [facility] HospitalComment on above:Performed By: #### 37635 ####[facility] [place] [address], USAGlucose [Mass/Vol]198 mg/bIOilw02-411Sze [facility] HospitalComment on above:Performed By: #### 68373, 69873 #### [facility] [address] [place] [address], USAGlucose [Mass/Vol]265 mg/lESdsz62-808Lad [facility] HospitalComment on above:Performed By: #### 63327 #### [facility] [address] [facility] [place] [address], USAGlucose [Mass/Vol]305 mg/vQNmyl24-971Rxu [facility] HospitalComment on above:Performed By: #### 25799, 33577 #### [facility] [address] [address], USAGlucose [Mass/Vol]301 mg/aIKgex73-751Uyj [facility] HospitalComment on above:Performed By: #### 07519 #### [facility] [address] [place] [address], USAPORTABLE CHEST 1 VIEWon [id number] CHEST [address] [facility] Department of Radiology [address] [place] [phone] Patient Name: RASHARD LYMAN : 1960 Sex: M Age: Race: White Pt. Location: [address] [place] [address] Patient Status: I Ordered Date: 07/14/2020 1:40:00 [...] above Electronically signed: Patricia Damon. Transcribed by: [email or web address], User Resident: Electronically Signed by: PATRICIA DAMON @ 07/14/2020 03:24 [facility] HospitalComment on above:Order Comment: Evaluate for PneumothoraxPORTABLE CHEST 1 VIEWUnW[facility] Department of Radiology [address] [place] [phone] Patient Name: RASHARD LYMAN : 1960 Sex: M Age: Race: White Pt. Location: [address] [place] [address] Patient Status: I Ordered Date: 07/13/2020 11:35:00 [...] reports Electronically signed: Valdemar Foster. Transcribed by: [email or web address], User Resident: SY MOFFETT Electronically Signed by: VALDEMAR FSOTER @ 07/14/2020 06:31 AM I personally read this/these film(s) with this [facility] SystemComment on above:Order Comment: evaluate for Effusion PROTEIN ELECT Truong [id number] [Mass/Vol]6.0 g/dLNormal6.0-8.3The [facility] HospitalComment on above:Performed By: #### 81636 #### [facility] [address] [place] [address], USAPROTEIN ELECTNoBarney Children's Medical Center Comment on above:Result Comment: Decreased albumin and elevated alpha 1 and 2 suggests acute inflammation.Performed By: #### [id number] #### [facility] [address] [place] [address], USAPROTEIN ELECT URon [id number] ELECTUrine protein electrophoresis suggests a nonselective nephropathy.NormalThe [facility] HospitalComment on above:Performed By: #### 45788 #### [facility] [address] [place] [address], USAPROTEIN TOTAL BLOODon 77-31-7639Qadmges [Mass/Vol]6.7 g/dL Normal6.0-8.3The [facility] HospitalComment on above:Order Comment: Left Peural EffusionPerformed By: #### 82220 #### [facility] [address] [place] [address], USAPROTHROMBIN TIMEon [id number] Coag (PPP) [Relative time] 1.12 {INR}Normal0.91-1.16The [facility] HospitalComment on above:Order Comment: No: Do not add to previous drawResult Comment: [facility] RECOMMENDED INR FOR WARFARIN THERAPY ------- CONDITION [...] OPTIMAL THERAPEUTIC RANGE. CHEST 1995;108:231S-246S.Performed By: #### [id number], [id number] #### [facility] [address] [place] [address], USAPT Coag (PPP) [Time]14.4 iApzeee76.3-14.8The [facility] HospitalComment on above:Order Comment: No: Do not add to previous drawResult Comment: ALL RESULTS MUST BE INTERPRETED WITH RESPECT TO BLOOD DRAWING ARTIFACT OR DILUTION ERROR OF ANTICOAGULANT AT THE TIME OF SAMPLING.Performed By: #### [id number], [id number] #### [facility] [address] [place] [id number], USASEDIMENTATION RATEon 14-94-8634PSP RATE32 mm/hrHigh0-10The [facility] HospitalComment on above:Performed By: #### [id number] #### [facility] [address] [place] [address], USASODIUM URINE RANDOMon 59-29-8165Datldp (U) [Moles/Vol]59 mmol/LNormalThe [facility] HospitalComment on above:Order Comment: No: Do not add to previous drawResult Comment: There are no established reference values for random urine specimensPerformed By: #### [id number] #### [facility] [address] [place] [address], USAT PROT FLUIDon 98-56-7284Fjuzbmi [Mass/Vol]3.6 g/dLNormal The [facility] HospitalComment on above:Result Comment: The reference range and other method performance specifications have not been established for this test in fluids. the test result should be integrated into the clinical context for interpretation.Performed By: #### [id number] #### [facility] [address] [place] [address], USAT PROT UR Loretta 07-14-2020U TOTAL LKDCRUT929.0 mg/dLNormal The [facility] HospitalComment on above:Order Comment: No: Do not add to previous drawResult Comment: There are no established reference values for random urine specimensPerformed By: #### [id number] #### [facility] [address] [place] [address], USAPerformed By: #### [id number] #### [facility] [address] [place] [address], USATROPONIN-Ion 20-95-9368Wmxnkfoh I.cardiac [Mass/Vol]0.09 ng/mLHigh0.00-0.04The [facility] HospitalComment on above:Order Comment: No: Do not add to previous drawResult Comment: REFERENCE RANGES: 0.00 - 0.04 ng/ml NORMAL 0.05 - 0.50 ng/ml INDETERMINATE > 0.50 ng/ml CONSISTENT WITH AN M.I.Performed By: #### [id number] #### [facility] [address] [place] [address], USATroponin I.cardiac [Mass/Vol]0.07 ng/mLHigh0.00-0.04The [facility] HospitalComment on above:Order Comment: No: Do not add to previous drawResult Comment: REFERENCE RANGES: 0.00 - 0.04 ng/ml NORMAL 0.05 - 0.50 ng/ml INDETERMINATE > 0.50 ng/ml CONSISTENT WITH AN M.I.Performed By: #### [id number] #### [facility] [address] [place] [address], JFVROY0os 37-78-0268BSP 3RD GENERATION3.28 uIU/mLNormal 0.34-5.60The [facility] HospitalComment on above:Order Comment: No: Do not add to previous drawPerformed By: #### [id number] #### [facility] [address] [place] [address], USAURIC ACID BLOODon 44-44-8460Jxycy [Mass/Vol]7.1 mg/dLNormal 4.4-7.6The [facility] HospitalComment on above:Performed By: #### [id number] #### [facility] [address] [place] [address], USAURINALYSIS REFLEXon 27-25-0243Fknahaiizu (U)SL CLOUDY AbnormalCLEARThe [facility] St[facility] HospitalComment on above:Order Comment: Left Peural EffusionPerformed By: #### [id number] #### [facility] [address] [place] [address], USABilirubin Ql (U)NegativeNormalNEGATIVEThe [facility] HospitalComment on above:Order Comment: Left Peural Effusion Performed By: #### [id number] #### [facility] [address] [place] [address], USAColor (U)YELLOWNormalYELLOWThe [facility] HospitalComment on above:Order Comment: Left Peural EffusionPerformed By: #### [id number] #### [facility] [address] [place] [address], USAEPISFEWNormalFEW,OCC,NONE SEENThe [facility] HospitalComment on above:Order Comment: Left Peural EffusionPerformed By: #### [id number] #### [facility] [address] [place] [address], USAGlucose Ql (U)>=500AbnormalNEGATIVEThe [facility] HospitalComment on above:Order Comment: Left Peural EffusionPerformed By: #### [id number] #### [facility] [address] [place] [address], USAHemoglobin Ql (U)TRACEAbnormalNEGATIVEThe [facility] HospitalComment on above:Order Comment: Left Peural Effusion Performed By: #### [id number] #### [facility] [address] [facility] [place] [address], USAKETONETRACEAbnormalNEGATIVEThe [facility] HospitalComment on above:Order Comment: Left Peural EffusionPerformed By: #### [id number] #### [facility] [address] [place] [address], USALEUK ESTERNegativeNormalNEGATIVEThe [facility] HospitalComment on above:Order Comment: Left Peural EffusionPerformed By: #### [id number] #### [facility] [address] [place] [address], USAMUCUS THREADSOCCAbnormalNONE SEENThe [facility] HospitalComment on above:Order Comment: Left Peural EffusionPerformed By: #### [id number] #### [facility] [address] [place] [address], USANitrite Ql (U)NegativeNormalNEGATIVEThe [facility] HospitalComment on above:Order Comment: Left Peural Effusion Performed By: #### [id number] #### [facility] [address] [place] [address], USApH (U)6.0 [pH]Normal5.0-8.0The [facility] HospitalComment on above:Order Comment: Left Peural EffusionPerformed By: #### [id number] #### [facility] [address] [place] [address], USAProtein Ql (U)>=500AbnormalNEGATIVEThe [facility] HospitalComment on above:Order Comment: Left Peural EffusionPerformed By: #### [id number] #### [facility] [address] [place] [address], USARBC0-2AbnormalNONE SEENThe [facility] HospitalComment on above:Order Comment: Left Peural EffusionPerformed By: #### [id number] #### [facility] [address] [place] [address], USASPEC GRAV1.722Hdfcey8.015-1.020The [facility] HospitalComment on above:Order Comment: Left Peural EffusionPerformed By: #### 24726 #### [facility] [address] [facility] [facility] [place] [address], USAWBC UA3-5AbnormalNONE SEENThe [facility] HospitalComment on above:Order Comment: Left Peural EffusionPerformed By: #### [id number] #### [facility] [address] [facility] [place] [address], [facility] Vital Signs Date TimeVital SignValuePerforming FbosurftpQcxnmwcj99-32-5103 12:54-0400Body mass index (BMI) [Ratio]27.9 kg/h3Jouovc [employer] DO Work Phone: [facility] Veomyd20-11-5188 12:54-0400Body fqkqolqnzqj76.39 [degF]Colton [employer] DO Work Phone: [facility] Nuojep86-46-2478 12:54-0400Body xhojiv880.96 kgDennis Furlong DO Work Phone: [facility] CenterCurrent [facility] Company10-21-2025 12:54-0400Diastolic blood wdnvvpje32 mm[Hg]Colton Kiranlong DO Work Phone: [facility] Qretzd05-45-9723 12:54-0400Heart rate 76 /minDennis Furlong DO Work Phone: [facility] Zhsvcr74-51-7148 12:54-0400 Respiratory rate18 /minDennis Furlong DO Work Phone: [facility]10-21-2025 12:54-0673YsC3% (BldA) [Mass fraction]97 %Colton Kiranlong DO Work Phone: [facility]10-21-2025 12:54-0400Systolic blood amysqsja71 mm[Hg]Colton Kiranlong DO Work Phone: [facility] Tqmwab53-94-5214 22:49-0400Body mass index (BMI) [Ratio]29.27 kg/z4KofcyjColton Kiranlong DO Work Phone: [facility]Current [facility]10-14-2025 22:49-0400Body hrmcvafhjqe02.39 [degF]Colton Kiranlong DO Work Phone: [facility]10-14-2025 22:49-0400Body rftvyr866.09 kgDendain Kiranlong DO Work Phone: [facility] Xtsnhw99-75-6759 22:49-0400Diastolic blood hxxurcpq15 mm[Hg]Colton Kiranlong DO Work Phone: [facility]10-14-2025 22:49-0400Heart rate 99 /Nannetteis Furlong DO Work Phone: [facility] Zxvflf87-65-1911 22:49-0400 Respiratory rate18 /minDennis Furlong DO Work Phone: [facility] Yayqth94-02-6603 22:49-8163AzG6% (BldA) [Mass fraction]96 %Colton Kiranlong DO Work Phone: [phone] Cayzfh24-08-2393 22:49-0400Systolic blood ggyjmpyv096 mm[Hg]Colton Furlong DO Work Phone: [facility] Ivwiya26-30-2527 12:12-0400Body mass index (BMI) [Ratio]27.85 kg/n6Vkezci Qianalong DO Work Phone: [facility] Tajmap57-36-2119 12:12-0400Body squjcfzbkcg76.9 [degF]Colton Kiranlong DO Work Phone: [facility] Jmwdpy81-37-8280 12:12-0400Body bwvqva727.78 kgDendain Kiranlong DO Work Phone: [phone] Smmorz08-38-9919 12:12-0400Diastolic blood vrcyxdwc28 mm[Hg]Colton Kiranlong DO Work Phone: [facility] Hndaka33-99-0473 12:12-0400Heart rate 92 /Lazaro Kiranlong DO Work Phone: [facility] Bnnfzz25-37-2551 12:12-0400 Respiratory rate18 /Nannetteis Qianalong DO Work Phone: [phone] Bbutls70-49-0900 12:12-1661WeX8% (BldA) [Mass fraction]99 %Colton Kiranlong DO Work Phone: [facility] Uwbnla08-56-0748 12:12-0400Systolic blood isklliwr68 mm[Hg]Colton Qianalong DO Work Phone: [facility] Jiunaj54-51-4751 23:08-0400Body mass index (BMI) [Ratio]28.81 kg/c8Srkhip Furlong DO Work Phone: [phone] Lduqyn28-54-4042 23:08-0400Body ytjqignjdwg82.81 [degF]Colotn Kiranlong DO Work Phone: [facility]09-30-2025 23:08-0400Body .37 kgDennis Qianalong DO Work Phone: [facility]09-30-2025 23:08-0400Diastolic blood jvdftcja90 mm[Hg]Colton Kiranlong DO Work Phone: [facility]09-30-2025 23:08-0400Heart rate 76 /Lazaro Kiranlong DO Work Phone: [facility]09-30-2025 23:08-0400 Respiratory rate18 /Lazaro Kiranlong DO Work Phone: [facility]09-30-2025 23:08-4662KkR0% (BldA) [Mass fraction]97 %Colton Kiranlong DO Work Phone: [facility]09-30-2025 23:08-0400Systolic blood rupmwqqd583 mm[Hg]Colton Kiranlong DO Work Phone: [facility]09-23-2025 21:28-0400Body yvrrzw747 cmColton Kiranlong DO Work Phone: [facility]09-23-2025 21:28-0400Body mass index (BMI) [Ratio]29.9 kg/i1Dxzjnq Furlong DO Work Phone: [facility]09-23-2025 21:28-0400Body gjycjmoqyqt80.1 [degF]Colton Kiranlong DO Work Phone: [facility]09-23-2025 21:28-0400Body hdezex348.4 kgDendain Kiranlong DO Work Phone: [facility]09-23-2025 21:28-0400Diastolic blood mm[Hg]Colton Furlong DO Work Phone: [facility] Jfxtbb51-98-7146 21:28-0400Heart rate 77 /minDennis Furlong DO Work Phone: [facility]09-23-2025 21:28-0400 Respiratory rate18 /minDennis Furlong DO Work Phone: [facility]09-23-2025 21:28-4089LqW9% (BldA) [Mass fraction]99 %Colton Furlong DO Work Phone: [facility]09-23-2025 21:28-0400Systolic blood wuyziedp241 mm[Hg]Colton Furlong DO Work Phone: [facility]09-19-2025 13:22-0400Diastolic blood nmlvtlat76 mm[Hg]Chino Elliott DPM Work Phone: [phone] [place], [place] 9003909-19-2025 13:22-0400 Heart rate80 /minter [facility] DPM Work Phone: [phone]09-19-2025 13:22-0400 Respiratory rate20 /minPeter [facility] DPM Work Phone: [phone])671-[address] [place], [place] 9003909-19-2025 13:22-0400 SaO2% (BldA) [Mass fraction]100 %Chino Elliott DPM Work Phone: 1(437)578-[address] [place], [place] 9003909-19-2025 13:22-0400 Systolic blood mm[Hg]Chino Elliott DPM Work Phone: [phone] [place], [place] 9003909-19-2025 09:10-0400 Body zwpgdmmgkir24.8 [degF]Chino Elliott DPM Work Phone: [phone])204-[address] [place], [place] 9003909-19-2025 05:33-0400 Body .9 kgPetracy [facility] Hospitalharish DPM Work Phone: 1(570)105-[address] [place], [place] 9003909-18-2025 13:33-0400 Body mhdfei684.04 cmPeter Highlander DPM Work Phone: [phone] [place], [place] 4693309-03-2025 14:32-0400 Body lglffdsudal35.3 [degF]Chino Elliott DPM Work Phone: [phone] [place], [place] 4693309-03-2025 14:32-0400 Diastolic blood ucooyusl97 mm[Hg]Chino Elliott DPM Work Phone: [phone])[address] [place], [place] 4693309-03-2025 14:32-0400 Heart rate80 /minPeter Highlander DPM Work Phone: [phone])[address] [place], [place] 4693309-03-2025 14:32-0400 Respiratory rate18 /minPeter Highlander DPM Work Phone: [phone])[address] [place], [place] 4693309-03-2025 14:32-0400 SaO2% (BldA) [Mass fraction]100 %Chino Elliott DPM Work Phone: [phone])[address] [place], [place] 4693309-03-2025 14:32-0400 Systolic blood mm[Hg]Chino Elliott DPM Work Phone: [phone])[address] [place], [place] 4693309-03-2025 06:00-0400 Body .2 kgPeter Highlander DPM Work Phone: [phone])[address] [place], [place] 4693308-28-2025 12:55-0400 Body octfxl249.04 cmPeter Highlander DPM Work Phone: 1(886)[address] [place], [place] 4693308-28-2025 10:07-0400 Inhaled oxygen flow rate7 L/minPeter Highlander DPM Work Phone: [phone])[address] [place], [place] 4693310-31-2024 11:25-0400 Body gtnxeh722 cmNima Lee MD Work Phone: [facility]10-31-2024 11:25-0400Body mass index (BMI) [Ratio]28 kg/a5HomvaksNima Lee MD Work Phone: [facility]10-31-2024 11:25-0400Body ketbcogyfol37.11 [degF]Nima Lee MD Work Phone: 1([phone] Dxuvff41-48-5736 11:25-0400Body qtkmgy768.33 kgNima Lee MD Work Phone: 1(987)[facility] Ogmviv84-19-1815 11:25-040Diastolic blood qbuwzqed44 mm[Hg]Nima Lee MD Work Phone: 1(992)[facility] Apdkju74-06-2871 11:25040Heart rate 78 /minNima Lee MD Work Phone: 1(860)[facility] Dibsxv11-46-3396 11:0500OcP1% (BldA) [Mass fraction]98 %Nima Lee MD Work Phone: 1(387)[facility] Lcrtbl90-01-4015 11:25-040Systolic blood ijbsvjwq109 mm[Hg]Nima Lee MD Work Phone: 1(052)[facility] Oyemea76-48-4953 15:40-0500Body recpgq881.04 cmEtim Pollack Other [facility] [employer] Other 11-23-2021 15:40-0500Body mass index (BMI) [Ratio] 39.02 kg/s7UwnakKike Pollack Other [facility] [employer] Other 11-23-2021 15:40-0500Body brhrxhrobcp19.8 [degF]Kike Pollack Other [facility] [employer] Other 11-23-2021 15:40-0500Body izmswl506.42 kgKike Pollack Other [facility] [employer] Other 11-23-2021 15:40-0500Diastolic blood jjvqudiz25 mm[Hg] iKke Pollack Other [facility] [employer] Other 11-23-2021 15:40-0500Respiratory rate18 /Sherrell Pollack Other [place] [employer] Other 11-23-2021 15:40-3617DwX1% (BldA) [Mass fraction]96 % Kike Pollack Other [place] [employer] Other 11-23-2021 15:40-0500Systolic blood mm[Hg] Kike Pollack Other [place] [employer] Other 04-29-2021 12:24-0400Heart rate82 /minCharles Valone Work Phone: [phone]04-29-2021 12:24-0400 Respiratory rate20 /minCharles Valone Work Phone: 5(202)335-[address] [place], [place] 3343804-29-2021 11:17-0400 Body xhwewxphxuq36.7 [degF]Jose Valone Work Phone: 0(695)426-[address] [place], [place] 3343804-29-2021 11:17-0400 Diastolic blood mm[Hg]Jose Valone Work Phone: 4(661)236-[address] [place], [place] 3343804-29-2021 11:17-0400 SaO2% (BldA) [Mass fraction]96 %Jose Valone Work Phone: [phone]04-29-2021 11:17-0400 Systolic blood tcpcvtau516 mm[Hg]Jose Valone Work Phone: [phone]04-29-2021 06:00-0400 Body .5 kgCharles Valone Work Phone: [facility]04-23-2021 14:17-0400 Body xrhegs715.04 cmCharles Valone Work Phone: [phone]04-22-2021 21:22-0400 Body cenfwf948.04 cmCharmeenu Juarez Work Phone: 1(256)063-[address] [place], [place] 3343804-22-2021 21:22-0400 Body mass index (BMI) [Ratio]43.8 kg/t7Klmrjxi Valone Work Phone: 1(694)386-[address] [place] [address]-22-2021 21:22-0400 Body dwezjrjlqbl31.6 [degF]Jose Juarez Work Phone: 1(234)735-[address] [place] [address]-22-2021 21:22-0400 Body .3 kgCharmeenu Valnikolay Work Phone: 1(864)289-[address] [place] [address]-22-2021 21:22-0400 Diastolic blood hyggctvs61 mm[Hg]Jose Juarez Work Phone: 1(711)351-[address] [place] [address]-22-2021 21:22-0400 Heart vccq670 /minJenniferrmeenu Valone Work Phone: 1(504)445-[address] [place] [address]-22-2021 21:22-0400 Respiratory rate18 /minJenniferrmeenu Valnikolay Work Phone: 1(259)626-[address] [place] [address]-22-2021 21:22-0400 SaO2% (BldA) [Mass fraction]94 %Jose Juarez Work Phone: [phone])118-[address] [place] [address]-22-2021 21:22-0400 Systolic blood mitqquxh994 mm[Hg]Jose Juarez Work Phone: 1([phone])215-[address] [place] [address] Encounters Encounter DateEncounter TypeCare ProviderFacilityStart: 02-17-2025 End: 75-58-5450txnkhybuotBqtwcq G Furlong DO Work Phone: [facility] - Family MedicineComment on above:Type 2 diabetes mellitus with diabetic neuropathy, with long-term current use of insulin ([facility]) (Primary Dx); End stage renal disease ([facility]); Hemodialysis-associated hypotension; Acquired absence of left foot (CMS-HCC); Acquired absence of right foot (CMS-HCC)Start: 02-16-2025 End: 18-79-8614svylvoccvtCqryzc G Furlong DO Work Phone: [facility] Medicine - Family MedicineComment on above:Type 2 diabetes mellitus with diabetic neuropathy, with long-term current use of insulin ([facility]) (Primary Dx); End stage renal disease ([facility]); Dependence on renal dialysis; Hemodialysis-associated hypotensionStart: 02-02-2025 End: 41-60-3283peesjfznhmIoemjj G Furlong DO Work Phone: [facility] Medicine - Family MedicineComment on above:Type 2 diabetes mellitus with diabetic neuropathy, with long-term current use of insulin ([facility]) (Primary Dx); Unspecified trochanteric fracture of right femur, subsequent encounter for closed fracture with routine healing; Nausea; Acquired absence of left foot (CMS-HCC); Acquired absence of right foot ([facility]); End stage renal disease ([facility])Start: 02-01-2025 End: 77-13-1160lgncuxdexsQxtfovbRosibel Juarez JR Work Phone: [facility] Work Phone: Start: 02-01-2025 End: 89-40-8985Tosqpbl encounter procedureWilfrido Montez DO-[facility] [place] Work Phone: Start: 01-26-2025 End: 67-22-0860zrbuehmhxyEbzfnj G Furlong DO Work Phone: [facility] Internal Medicine - Family MedicineComment on above:Unspecified trochanteric fracture of right femur, subsequent encounter for closed fracture with routine healing (Primary Dx); Type 2 diabetes mellitus with diabetic neuropathy, with long-term current use of insulin ([facility]); End stage renal disease ([facility]); Acquired absence of right foot (CMS-HCC); Acquired absence of left foot (CMS-HCC)Start: 01-19-2025 End: 21-95-5621truvnhubjsHdvbnp G Furlong DO Work Phone: [facility] Internal Medicine - Family MedicineComment on above:Unspecified trochanteric fracture of right femur, subsequent encounter for closed fracture with routine healing (Primary Dx); Chronic obstructive pulmonary disease, unspecified COPD type ([facility] End stage renal disease ([facility]); Dependence on renal dialysis; Peripheral vascular disease, unspecified; Acquired absence of left foot ([facility]); Acquired absence of right foot ([facility]); Type 2 diabetes mellitus with diabetic neuropathy, with long-term current use of insulin ([facility]); Hyperlipidemia, unspecified hyperlipidemia type; Gastroesophageal reflux disease, unspecified whether esophagitis present; Psoriasis, unspecifiedStart: 62-23-6333Zkh-patient / Non-visitClayton Cardenas MD- [facility] Work Phone: Start: 96-67-8230Ywg-patient / Non-visitAleta Jensen APRN-[facility] Work Phone: Start: 39-89-8571Hbd-patient / Non-visitClayton Cardenas MD-[facility] Work Phone: Start: 12-30-2024 End: 89-40-5636Eynggrcsdp and management of inpatientCharles L Valone [facility]: [phone]-patient / Non-visitRaimundo Mcclure MD-[facility] Work Phone: Start: 27-28-8521Ttwopnd encounter statusChino Elliott DPM Work Phone: [facility]: 58-55-8567Eln- patient / Non-visitAri Batista MD-[facility] Work Phone: Start: 74-12-5037Dpqopot encounter statusAri Batista MDGalion Community Hospitaltart: 37-13-0576Dyamlilre for preprocedural cardiovascular examinationPhillip Aiken [facility] GroupStart: 12-23-2024 End: 85-97-6240Boyzzhnjhz and management of inpatientAndrei Celia [facility]: 10-26-2024 End: 02-98-7419vdcycihqsxVfqvxAC[facility] Work Phone: Start: 10-26-2024 End: 21-28-7454Vjtdkuvd ReferredPaladin Healthcare DPM [place]-[facility] [place] HospStart: 08-28-2024 End: 23-61-3729kbkwntdcdbLjeouACMC Healthcare System Ctr Work Phone: Start: 08-28-2024 End: 05-59-0250Vkfgwwpf ReferredPaladin Healthcare DPM Work Phone: [facility] [place] HospStart: 02-27-2024 End: 71-39-7464Lsvref outpatient visit 25 minutesMohamed Malik Lee MD Work Phone: [facility] Vascular SurgeryComment on above:Critical limb ischemia of left lower extremity with gangrene ([facility]) (Primary Dx)Start: 02-17-2024 End: 27-98-7856wumizsboreZKOIDCA L VALONE JRProMedica Austin HospitalStart: 01-20-2024 End: 10-42-4772hckyzxgccmYPIPUCL L VALONE JRProMedica Austin HospitalStart: 12-16-2023 End: 10-07-5956ghonwehmhlCPCAOCS L VALONE JRProMedica Austin HospitalStart: 11-19-2023 End: 54-41-8259bclnrqokjxQCEBAFM L VALONE JRProMedica Ewa Beach HospitalStart: 11-19-2023 End: 34-94-3501Wmoatwpjr Result EncounterAjay Archer MD Work Phone: [facility] External Department UnsolicitedStart: 11-19-2023 End: 10-82-0127Ovkfwkuxy Result EncounterAjay Archer MD Work Phone: [facility] External Department UnsolicitedStart: 10-23-2023 End: 93-94-3727orckhnieryVMFHDQI L VALONE JRProMediSt. Luke's Hospital HospitalStart: 09-03-2023 End: 59-00-8324phknnuqejsQRALGBZ Anmol JUAREZ JRProMedica [facility] HospitalStart: 07-31-2023 End: 35-06-9038wsvlfwkvzqDPPJBRZ Anmol JUAREZ JRProMediSt. Luke's Hospital HospitalStart: 07-02-2023 End: 83-10-3284gzwyzuhrvjSLDBBTZ Anmol JUAREZ JRProH[facility] Hospitalca [facility] HospitalStart: 06-04-2023 End: 30-90-1059xgrwqzyahmNLGMBPZ Anmol JUAREZ JRProMedica Austin HospitalStart: 05-31-2023 End: 22-73-7769tooqfvpvkiHNEDQ RALOFSKYMercy Newfoundland HospitalStart: 05-06-2023 End: 87-79-6606ceuindpzbtTNOWLAP Anmol JUAREZ [facility] HospitalStart: 04-19-2023 End: 60-16-8269ojogsabbhnRWHVX D [facility] HospitalStart: 02-27-2023 End: 44-59-6603ogwijeivsrNXBJS D [facility] HospitalStart: 09-11-2022 End: 67-14-6460kckkbshssjQBKKF D [facility] INCFacility:V2Oaube: 08-28-2022 End: 06-52-9507nqpqrkrmdkRUSGA D [facility] INCFacility:N7Toniy: 08-24-2022 End: 64-77-8864sgkbseuefhDR CHARLES VALONEFacility:F7Uybcz: 08-20-2022 End: 42-06-0816ixqxrorozjPTOctavio JUAREZFacility:X5Bbrhn: 36-99-6891Mfuqeixzj for preprocedural cardiovascular examinationPETER D [facility] HospitalStart: 11-34-6630Skaxovqac for preprocedural laboratory examinationPETER D [facility] HospitalStart: 27-69-9512Iicymwral for preprocedural respiratory examinationPETER D [facility] HospitalStart: 08-15-2022 End: 21-29-9440scehpdllbjBG CHARLES VALONEFacility:D3Kbcfx: 08-15-2022 End: 06-20-0080Lqmdrbnnu for preprocedural laboratory examinationDR JOSE VALONEFacility:V9Yrwja: 07-31-2022 End: 60-47-6999mwjjntbuasKA JOSE VALONEFacility:D9Urqgd: 07-13-2022 End: 51-97-4113mbvavyuhowYZ JOSE VALONEFacility:E0Tawgi: 06-21-2022 End: 72-83-0806tjxiijbsedOP JOSE VALONEFacility:U1Uapfm: 88-05-1928zvyzjxdsvm DR CARLOS EDUARDO SU .Facility:M0Mafjg: 06-06-2022 End: 41-86-5426qiqlaynpgxTP JOSE VALONEFacility:L8Cbrxn: 05-28-2022 End: 46-14-0776ytidudxbvzID JOSE VALONEFacility:S5Xspkn: 05-07-2022 End: 08-17-1935hdwimrsezkYI JOSE VALONEFacility:U6Acdvs: 04-09-2022 End: 49-48-3602pemwsefofyPG JOSE VALONEFacility:B1Xhkpj: 03-26-2022 End: 62-81-7779lqhxuinqhjVM JOSE VALONEFacility:E4Lkugs: 03-13-2022 End: 95-80-2110czmmheuqaoNM JOSE VALONEFacility:J9Ffqcc: 03-02-2022 End: 42-09-2506xnzhmsgzpaAO JOSE VALONEFacility:R6Uphif: 03-01-2022 End: 23-20-4102cjaipsbdueCS CARLOS EDUARDO S NIMESH .Facility:H5Mzimk: 02-23-2022 End: 31-70-1611rvqqgmutifDZ JOSE VALONEFacility:V2Ndnno: 02-16-2022 End: 97-85-6231dubnbckdmnQF JOSE VALONEFacility:Z9Ppaut: 02-09-2022 End: 38-72-6287coowstzankYD JOSE VALONEFacility:O3Gcldq: 02-02-2022 End: 65-62-7742tmzcpngxsgKAWLM D HIGHLANDERFacility:T1Soxxj: 01-26-2022 End: 57-57-2571juiecdnezvYBFDI D HIGHLANDERFacility:H8Setcv: 01-18-2022 End: 87-30-0769boiemvlutpZOFNE D HIGHLANDERFacility:H8Eurrv: 01-15-2022 End: 11-51-5885qqclrdvmyvCIVTW D HIGHLANDERFacility:T1Gznne: 01-12-2022 End: 17-09-4786nzztnefmudMOEKV D HIGHLANDERFacility:I6Thmxj: 01-10-2022 End: 55-61-4823psenwracsaNOKJO D HIGHLANDERFacility:I9Kjnys: 01-02-2022 End: 54-08-6846vvsberqincYUKFS D HIGHLANDERFacility:Z5Cewcr: 12-25-2021 End: 02-18-9046akvwsjnckpAZXFN D HIGHLANDERFacility:O1Qxufu: 12-21-2021 End: 19-42-9976eewgwmhzazQSCVFW H FAWWADFacility:C1Wneju: 12-18-2021 End: 79-90-7359pybnmkcrqnIZLUE D HIGHLANDERFacility:A7Mvhhi: 12-15-2021 End: 58-32-8203zhxowdfzbbCODES D HIGHLANDERFacility:W1Zkido: 12-11-2021 End: 50-69-2187mqjkartagxYYFET D HIGHLANDERFacility:S3Bgvde: 11-30-2021 End: 98-36-9436degzkrzksyOQ CARLOS EDUARDO S SU .Facility:J6Nedlj: 11-22-2021 End: 47-25-7016qawlnnyawrKK CARLOS EDUARDO S SU .Facility:M8Edqgd: 11-21-2021 End: 95-51-2298ikgvkcatvgAEYQA D HIGHLANDERFacility:R3Pddro: 11-14-2021 ambulatoryDR CARLOS EDUARDO S SU .Facility:U5Anqky: 11-13-2021 End: 83-54-4615tzbduanfzhQXNAY D HIGHLANDERFacility:H1Hvpxe: 11-07-2021 End: 27-58-9746hsbasaemvfGMFAH D HIGHLANDERFacility:C3Mqefw: 10-31-2021 End: 56-15-3147zzhpugsjbzFUEGN D HIGHLANDERFacility:N3Gopxf: 10-24-2021 End: 62-81-7332umqsdixejnQTGKX D HIGHLANDERFacility:G4Vztdp: 10-17-2021 End: 93-69-7457ppmqxmxdloEKQHC D HIGHLANDERFacility:L3Xkjje: 10-09-2021 End: 93-03-9322mmrlyxxczfKNRGC D HIGHLANDERFacility:H9Havfp: 03-21-2021 End: 40-96-1587jopowxjkvxWsrqk Elashi Other [facility] Other Start: 87-95-3446Uzvdpk outpatient visit 25 minutes Essmani PollackFPG NephrologyStart: 10-20-2020 End: 80-14-0596mtieseiyijRGRWZRG PROVIDERFacility:METROHealthStart: 09-28-2020 End: 81-87-3299Qdgkikf encounter procedureCharles Valone Work Phone: [phone]-Rmqexxqprwh TherapyStart: 09-06-2020 End: 84-95-1048Juaqocc encounter procedureCharles Valone Work Phone: [phone]-FakkwmlnuncivvvqyyGkruo: 08-18-2020 End: 31-12-0885Ekugqgoahs and management of inpatientCharles Valone Work Phone: [phone] [facility] ProgressiveStart: 07-13-2020 End: 69-89-5932Jvsvhcekaq and management of inpatientSARMED MANSURFacility:[facility] Procedures DateProcedureProcedure DetailPerforming ClinicianStart: 11-93-8722Ggyfwzix screenPeter HighlanderComment on above:Result Comment: PERFORMED BY: [facility] [address] [place] [address] PATHOLOGIST SHUTTLER CAR CARLOS BIRMINGHAM M.D.Start: 48-37-5348DI VENOUS DOPPLER LE [facility] Charis SIGALA Work Phone: Start: 74-90-5741Hwofeqtrfoun [Mass/volume] in Urine by Test stripNima Lee MD Work Phone: [phone]: 29-85-0660UZ thoracic spine wo conCharles Valnikolay Work Phone: Start: 26-97-6416SX abdomen pelvis wo conCdevendra CanalesClinipace WorldWide Work Phone: Start: 08-64-3056ME chest wo conCdevendra CanalesClinipace WorldWide Work Phone: Start: 63-46-9629Bdsbfcvpqyyachw of bilateral kidneys Jose CanalesClinipace World[facility]ide Work Phone: Start: 08-19-2020 End: 19-62-8990Seycixm microbial cultureCharmeenu CanalesClinipace WorldWide Work Phone: Start: 31-32-3020Xwacevkwkzpxz of transfusion reaction Jose CanalesClinipace World[facility] Work Phone: Start: 95-73-1849Uanwu chest X-rayCharmeenu CanalesClinipace WorldWide Work Phone: Start: 33-83-9884Qslkc culture for bacteria, including anaerobic screenCharmeenu CanalesClinipace WorldWide Work Phone: Start: 28-21-5588Deqprwfevyu Panel (PCR)Jose CanalesClinipace WorldWide Work Phone: Start: 42-78-6207RKZTLJAQ OF L PLEURAL CAV WITH DRAIN DEV, PERC ENDO APPROACHMOHAMED OMBALLIStart: 11-85-0090UGBTNTRA OF LEFT PLEURA, PERC ENDO APPROACH, DIAGNMOHAMED OMBALLIStart: 78-25-4722PXNGJLMKK OF OTH THERAP SUBST INTO RESP TRACT, VIA OPENINGMOHAMED OMBALLIStart: 92-18-1189PQNHDRV LEFT PLEURA, PERCUTANEOUS ENDOSCOPIC APPROACHMOHAMED OMBALLIStart: 02-65-4615BSQWXCNQ OF LEFT PLEURAL CAVITY, PERC APPROACH, DIAGNMOHAMED OMBALLIStart: 07-15-2020 DRAINAGE OF LEFT PLEURAL CAVITY, PERCUTANEOUS APPROACHMOHAMED OMBALLIStart: 73-58-4061IRHXNXNV OF LEFT PLEURAL CAVITY, PERCUTANEOUS APPROACHMOHAMED OMBALLI Start: 73-12-1632SBJLYTYCKZBOUJO OF RIGHT AND LEFT HEART, MARY ANN CALL[place]AY Plan of Treatment DateCare ActivityDetailAuthorStart: 16-37-0635XHrH,Tdap and Td Vaccines (2 - Td or Tdap)DTaP,Tdap and Td Vaccines (2 - Td or Tdap)[facility] SystemStart: 01-79-8909Wukxe BMI ScreeningAdult BMI ScreeningFisher-Titus Medical Center SystemStart: 48-02-3892Wfajw BMI ScreeningAdult BMI ScreeningProMercy Health [facility] SystemStart: 81-08-0821Dppbm BMI ScreeningAdult BMI ScreeningProMercy Health [facility] Hospital SystemStart: 18-14-0902Kdegt BMI ScreeningAdult BMI ScreeningProMercy Health [facility] Hospital SystemStart: 49-07-2350Xbgmets ScreeningTobacco ScreeningProMercy Health [facility] Hospital SystemStart: 88-34-6413Rczjxtwtj aortic aneurysm screeningAbdominal Aortic Aneurysm (AAA) ScreenProMercy Health [facility]ont Hospital SystemStart: 85-14-0577Epab Risk ScreeningFall Risk ScreeningFisher-Titus Medical Center SystemStart: 01-15-2025 End: 96-29-2546FdqyzyiiyVeterans Health Administration CenterStart: 33-03-8196PjvtsjlkgVeterans Health Administration CenterStart: 82-19-6733Abkjdjrt to nephrologistVeterans Health Administration CenterStart: 81-97-2260Dsyjxofv admissionVeterans Health Administration CenterStart: 53-81-7464Bgccxqzc to clinical allergistVeterans Health Administration CenterStart: 38-72-7795FsvzbgcvfVeterans Health Administration CenterStart: 51-93-2246LCGDK-19 Vaccine ( season)COVID-19 Vaccine ( season)[facility] SystemStart: 11-55-2013Rwphwmpip vaccinationInfluenza VaccineFisher-Titus Medical Center SystemStart: 31-07-2669Gltdazyu to rehabilitation physicianVeterans Health Administration CenterStart: 45-68-8503Ixxrkomd to vascular surgeonVeterans Health Administration CenterStart: 77-63-9211Giztpxbs to nephrologistVeterans Health Administration CenterStart: 24-92-6120Cgyqtjqhtudr [facility] CenterStart: 25-78-5214Qlwspwgp admissionVeterans Health Administration CenterStart: 47-40-0362YhyusqsdzVeterans Health Administration CenterStart: 84-13-5776PhptnbkyfVeterans Health Administration CenterStart: 05-83-4919Lkzmb screening for proteinUrine MicroalbuminVeterans Health Administration Sonics SystemStart: 02-27-2024 End: 28-82-3548EG.doppler Extremity arteries - bilateral for physiologic artery studyVas art doppler lwr bilat mult lev/PVR Vascular Ultrasound Routine Critical limb ischemia of left lower extremity with gangrene (CMS-HCC) Expected: 02/27/2024, Expires: 02/26/2025[facility] Work Phone: Comment on above:Expected: 02/27/2024, Expires: 02/26/2025Start: 09-79-7259YQNZF-19 Vaccine ( season)COVID-19 Vaccine ( season)[facility] SystemStart: 41-58-2097Bnjfiddhh vaccinationInfluenza VaccineFisher-Titus Medical Center SystemStart: 14-02-1277Ujgalvde identified in Blood by CultureBlood CultureVeterans Health Administration CtrStart: 60-91-7420UOY ( or age 60+ yrs) (1 - Risk 60-74 years 1-dose series)RSV ( or age 60+ yrs) (1 - Risk 60-74 years 1-dose series)[facility] SystemStart: 08-46-5236Oagegxmpifxrue of varicella zoster vaccineZoster (Shingles) Vaccine (1 of 2)[facility] SystemStart: 97-67-1113Phrrz BMI Follow Up PlanAdult BMI Follow Up PlanFisher-Titus Medical Center SystemStart: 02-04-1978 Adult BMI ScreeningAdult BMI ScreeningFisher-Titus Medical Center SystemStart: 02-04-1978 Diabetic foot examinationDiabetic Foot ExamFisher-Titus Medical Center SystemStart: 33-72-3935Zhzpffynlr ScreeningDepression ScreeningFisher-Titus Medical Center SystemStart: 48-76-8167Nyepxri ScreeningTobacco ScreeningFisher-Titus Medical Center SystemStart: 61-09-2562Kdcsnuak screeningDiabetic Ophthalmology ExamFisher-Titus [facility] System Start: 84-43-7266Qajdbf Use: CardiovascularStatin Use: CardiovascularVeterans Health Administration Health SystemStart: 03-02-4196Fruacv Use: DiabeticStatin Use: DiabeticVeterans Health Administration Health SystemAnion gap measurementLicking Memorial HospitalErythrocyte distribution width [Ratio] by Automated countVeterans Health Administration Center Erythrocytes [#/volume] in [facility] HospitalGlomerular filtration rate [Volume Rate/Area] in Serum, Plasma or Blood by Creatinine [facility] HospitalHematocrit [Volume Fraction] of [facility] HospitalHemoglobin [Mass/volume] in [facility] HospitalLeukocytes [#/volume] corrected for nucleated erythrocytes in Blood by Automated [facility] CenterMCH [Entitic mass] by Automated [facility] CenterMCHC [Mass/volume] by Automated [facility] CenterMCV [Entitic volume] by Automated count [facility] HospitalPatient referralAcmc Healthcare System Platelet mean volume [Entitic volume] in Blood by Automated [facility] CenterPlatelets [#/volume] in [facility] HospitalXR Hip - right 2 [facility]XR Wrist - right GE 3 [facility] Immunizations Immunization DateImmunizationNotesCare SmxddtnnRejxiqjq25-46-2322oedxkccpa virus vaccine, unspecified formulationNima Lee MD Work Phone: [facility]10-15-2017tetanus toxoid, reduced diphtheria toxoid, and acellular pertussis vaccine, adsorbedMoyung Lee MD Work Phone: [facility] CampusCjyxal11-55-0444zlyucqxfe, seasonal, injectableEssam Jaki Other [facility]01-29-2016 pneumococcal polysaccharide vaccine, 23 valentEssam Jaki Other [facility] Payers DatePayer CategoryPayerPolicy [id number]-ala [id number] Cross Blue ShieldBCBS Member Subscriber Plan / Payer (Effective 2017- Present) Name: Rashard Lyman Relation to Subscriber: Spouse Name: TORRES LYMAN Date of : 1964 Address: [address] [place] [address] Payer ID: Not on file Type: Not on file Address: [address] [place] [id number] [facility] Care - OtherANTHEM 1.2.840.263942.1.13.424.2.7.9.993905.[id number] 2..1.427449.3.579.2.44331-88-9806Pchqomt311963432 2..1.100928.3.579.2.43343-53-4868Iybjycr0853943 2..1.662515.3.579.2.08504-93-2807Xvtbnkx5528640 2..1.499184.3.579.2.40392-18-9375Snknzuw9622732 2..1.294644.3.579.2.91905-91-4543Xzueiee2215813 2..1.002682.3.579.2.57692-40-8578Wvulwuz9589445 2.16.840.1.206580.3.579.2.05984-14-5380Yutyywr3681327 2.16.840.1.918356.3.579.2.23881-83-6388Euezrek9199100 2.16.840.1.598582.3.579.2.13288-76-0783Nwryjut2730735 2.16.840.1.125549.3.579.2.46328-75-8923Eeexipq8429045 2.16.840.1.827200.3.579.2.12059-32-9077Vlxlqxq5378207 2.16.840.1.915589.3.579.2.58204-90-7371Amciaho7349383 2.16.840.1.145922.3.579.2.57799-61-7931Mzgpkja8665380 2.16.840.1.503219.3.579.2.77784-15-1171Yzlogvk1867792 2.16.840.1.769673.3.579.2.88125-43-7201Yveddei6552228 2.16.840.1.505913.3.579.2.74353-42-8449Grtwflw9004688 2.16.840.1.686503.3.579.2.26068-85-3128Haqgcsr3468283 2.16.840.1.428955.3.579.2.50256-63-1038Jjbrlda5796648 2.16.840.1.389606.3.579.2.46151-35-4078Tofskpd4039981 2.16.840.1.067840.3.579.2.19878-52-7207Glxpbkr8140848 2.16.840.1.624982.3.579.2.26657-24-2277Nzlnskz4235727 2.16.840.1.454206.3.579.2.95275-38-2457Pvyklhi4995290 2.16.840.1.970578.3.579.2.24042-71-8957Zburghp2129649 2.16.840.1.929500.3.579.2.92518-49-8974Fkychls2797512 2.16.840.1.981478.3.579.2.25749-69-1667Veqnljj4381079 2.16.840.1.850332.3.579.2.09091-98-3614Yjwqego9690308 2.16.840.1.076341.3.579.2.73333-49-4276Oacfndi8556355 2.16.840.1.940081.3.579.2.37140-35-8877Lcutmkr8248756 2.16.840.1.861735.3.579.2.74673-08-5009Tnjbtjg6428777 2.16.840.1.601552.3.579.2.57465-33-5231Twqkius2915425 2.16.840.1.613000.3.579.2.45126-66-4487Yqccpyz2646640 2.16.840.1.704553.3.579.2.99613-17-6215Etgydhb0919096 2.16.840.1.575037.3.579.2.54687-68-8579Zdrswtp0120792 2.16.840.1.123713.3.579.2.15327-98-0539Hlcsaxh9337170 2.16.840.1.226610.3.579.2.33231-15-6506Xyugpqm3195348 2.16.840.1.777330.3.579.2.18767-81-2219Ilenvlh6959979 2.16.840.1.620862.3.579.2.15444-21-4166Qllpgtx3573786 2.16.840.1.619806.3.579.2.48161-97-2773Vmdrkkz5261720 2.16.840.1.373014.3.579.2.45879-15-8814Nodscis2399815 2.16.840.1.785166.3.579.2.84817-63-8524Fqtcnzq3795540 2.16.840.1.414870.3.579.2.54533-00-1465Vculouh5776169 2.16.840.1.975013.3.579.2.73160-05-0083Ijudfyy6489052 2.16.840.1.289187.3.579.2.58718-04-5249Xiercwy6967623 2.16.840.1.796345.3.579.2.25788-11-5893Nrumdon9454860 2.16.840.1.203929.3.579.2.86350-19-3152Xpsvwum7922164 2.16.840.1.996972.3.579.2.87231-14-3605Mqwbnns88729087 2.16.840.1.848080.3.579.2.832114-59-9341Hnykenc59698114 2.16.840.1.547468.3.579.2.589096-66-1794Ltwycqx96568583 2.16.840.1.391171.3.579.2.254715-09-0536Astdwlr73782868 2.16.840.1.323545.3.579.2.028903-81-9684Gobdmue65112379 2..840.1.500156.3.579.2.142229-06-4043Udwtget39702061 2..0.1.896568.3.579.2.733207-68-8256Rlyukid44524747 2..840.1.655018.3.579.2.529975-46-3308Yfbfljj21771586 2..0.1.289723.3.579.2.084098-61-5347Swdwpac25219157 2..0.1.329221.3.579.2.074305-24-8934Cyitfmn1742477 2..840.1.285004.3.579.2.576384-89-4065Pbsxukz1432856 2..1.264799.3.579.2.763738-21-0396AcpxxjzZZO097K48771 7f989e3c-7959-4708-b0f6-e1668f091ab0MedicareSelf [id number]27QU52 27jm410g-320k-86q5-nn14-6r07ix723mj3Ixydsay94564522 2..1.469076.3.579.2.910Inkyail40690452 2..1.379532.3.579.2.531 Social History DateTypeDetailFacilityTobacco smoking status NHISUnknown if ever smokedVeterans Health Administration CtrStart: 27-74-7298Pfe Assigned At [facility] CenterStart: 17-34-3584Ddgnltp smoking status NHISUnknown if ever smokedNOMS HealthcareStart: 01-59-5726Ichsybo smoking status NHISNever smoked tobacco (finding)[facility] Hospitaltart: 06-09-2020 End: 82-65-1613Irx Assigned At BirthJulesburg Quture Other Start: 02-10-2017 End: 79-70-9341Okrwomo smoking status NHISEx-smokerSt. [facility]'s [facility] End: 83-42-5430Bqvuxxu of tobacco useCurrent smokerSt. [facility]'s [facility] End: 62-85-4473Apepksl of tobacco useCigarette SmokerFisher-[facility] System Start: 38-43-4873Xuuxext use and exposureSmokeless tobacco non-userFisher-Titus Medical Center SystemStart: 18-50-1669Qedbqxjbn beverage intakeCurrent non-drinker of alcohol (finding)[facility] Centertart: 06-09-2020 End: 49-78-8873Khvycvh of Social functionFisher-Titus Medical Center SystemStart: 10-04-7030YioxwgknfAyettyvSxmSddaue Health SystemStart: 03-51-9347Eme assigned at birthNot on fileFisher-Titus Medical Center SystemStart: 12-02-2014 End: 39-20-8191YlaFshn (finding)[facility] Centertart: 95-63-9126CSIL Follow upSDOH Follow upAcmc Healthcare System Work Phone: Medical Equipment Procedure CodeEquipment CodeEquipment Original TextEquipment IdentifierDates ORIF, hipOrthopaedic fixation plate, non-bioabsorbable, sterile ()[id number] FDAStart: 48-05-7287WLBO, hipOrthopaedic bone screw, non- bioabsorbable, non-sterile()[id number] FDAStart: 34-02-2263HHIZ, hip Orthopaedic bone screw, non-bioabsorbable, non-sterile()[id number] FDA Start: 85-75-1310CMMF, hipOrthopaedic bone screw, non-bioabsorbable, non-sterile ()[id number] FDAStart: 53-22-3808KZJW, hipOrthopaedic bone screw, non- bioabsorbable, non-sterile()[id number] FDAStart: 52-11-0087ZHOX, hipFemur nail, sterile()[id number] FDAStart: 76-45-7627ZQXV, hipSpiral blade()[id number] FDAStart: 12-24-2024 Goals DatePatient GoalDesired Activity/State Functional Status ZfpvHmrimkncpgQvhcaeKncsmahf08-34-8928Eahmztkcgb statusPatient at Baseline [facility] Mental Status IzxdAvwysgewmbGtuiqeTozsmupn56-29-7733Hgperjncz functionCognitive Status Patient at BaselineAcmc Healthcare System Clinical Notes 07-15-2020 to 02-17-2025 Note Date & FccjKpyqPnblzirw38-28-2372 History of Present illness Narrative* Colton Kiransteven, DO - 02/17/2025 11:59 PM EDT Patient Name: Rashard Lyman Date of : 1960 Date of Service: 02/09/2025 [place] [facility] [place] of Visit: Skilled Visit Subjective Rashard Lmyan is a 65 y.o. male seen today at retirement facility for skilled visit. Rashard is in [...] neuropathy, with long-term current use of insulin ([facility] 2. End stage renal disease ([facility]) 3. Hemodialysis-associated hypotension 4. Acquired absence of left foot ([facility]) 5. Acquired absence of right foot ([facility]) He is doing a bit better with his blood sugars but blood pressure still is a problem. He is alreadytaking midodrine. He is not a candidate for Florinef. Continue therapy to reach maximum improvement. ELECTRONICALLY SIGNED BY: Colton Lamb DO documented in this encounterSt. [facility]'s [facility]10-21-2025 History of Present illness Narrative* Colton Lamb DO - 02/16/2025 11:59 PM EDT Patient Name: Rashard Lyman Date of : 1960 Date of Service: 02/16/2025 [place] [facility] [place] of Visit: Skilled Visit Subjective Rashard Lyman is a 65 y.o. male seen today at [facility] facility for skilled visit Rashard isn't therapy. [...] neuropathy, with long-term current use of insulin [place] [place] 2. End stage renal disease ([facility] 3. Dependence on renal dialysis 4. Hemodialysis-associated hypotension He is currently on midodrine 10 mg T.I.D. for hypotension. Consider a p.r.n. dose. Continue therapy to reach maximum improvement. Encouraged diet for improved sugars. All medications reviewed and are medically necessary. ELECTRONICALLY SIGNED BY: Colton Lamb DO documented in this encounterRegional Medical CenterHistogen [id number] History of Present illness Narrative* Colton Lamb DO - 02/02/2025 12:12 PM EDT Patient Name: Rashard Lyman Date of : 1960 Date of Service: 02/02/2025 [place] [facility] [place] Visit: Skilled Visit Subjective Rashard Lyman is a 64 y.o. male seen today at retirement facility for dkilled visit. Rashard is in [...] neuropathy, with long-term current use of insulin ([facility]) 2. Unspecified trochanteric fracture of right femur, subsequent encounter for closed fracture with routine healing 3. Nausea 4. Acquired absence of left foot ([facility]) 5. Acquired absence of right foot ([facility]) 6. End stage renal disease ([facility]) Will add ondansetron 4 mg Q4 hrs [...] BY: Colton Lamb DO documented in this encounterRegional Medical CenterFidzup Mckenzie Memorial [id number] History of Present illness Narrative* Colton Lamb DO - 01/26/2025 11:59 PM EDT Patient Name: Rashard Lyman Date of : 1960 Date of Service: 01/26/3035 [place] [facility] [place] of Visit: Skilled Visit Subjective Rashard Lyman is a 64 y.o. male seen today at retirement facility for skilled visit. When his participating [...] neuropathy, with long-term current use of insulin ([facility] 3. End stage renal disease ([facility]) 4. Acquired absence of right foot ([facility] 5. Acquired absence of left foot ([facility]) His blood glucose readings were reviewed and [...] BY: Colton Lamb DO documented in this encounterRegional Medical CenterFidzup Mckenzie Memorial [id number] History of Present illness Narrative* Colton Lamb DO - 01/19/2025 11:59 PM EDT Patient Name: Rashard Lyman Date of : 1960 Date of Service: 01/19/2025 [place] [facility] [place] of Visit: Admission H&P Subjective Rashard Lyman is a 64 y.o. male seen today at retirement facility for admission H&PVaishali Munoz presents today from [facility]. He has a fairly complex medical history. He recently fell and fractured his right hip. He had intensive inpatient therapy following his hospital stay at [facility]. He requires physical therapy as he [...] musculoskeletal pain COPD (chronic obstructive pulmonary disease) ([facility] Diabetes mellitus ([facility]) Fracture, clavicle History of MRSA (methicillin resistant Staphylococcus aureus) Neuropathy Renal failure Dialysis since 04/2014 Past Surgical History: Procedure Laterality Date APPENDECTOMY CHOLECYSTECTOMY DIALYSIS FISTULA CREATION Right arm INJECTION CAUDAL EPIDURAL WITH CATHETER, STEROID N/A 06/05/2019 Performed by Jefferson Bryant MD at [facility] PAIN TOE AMPUTATION Right 5th TONSILLECTOMY Family [...] Chronic obstructive pulmonary disease, unspecified COPD type [place] 3. End stage renal disease ([facility] 4. Dependence on renal dialysis 5. Peripheral vascular disease, unspecified 6. Acquired absence of left foot ([facility]) 7. Acquired absence of right foot ([facility] 8. Type 2 diabetes mellitus with diabetic neuropathy, with long-term current use of insulin ([facility]) 9. Hyperlipidemia, unspecified hyperlipidemia type 10. Gastroesophageal reflux disease, unspecified whether esophagitis present 11. Psoriasis, unspecified [facility] Continue current regimen. Therapy evaluation. Full code. Continue dialysis. He is using high risk medication with benefit. Can not take NSAIDs. Continue midodrine 10 mg twice a day for hypotension. Good rehab potential. ELECTRONICALLY SIGNED BY: Colton Lamb DO documented in this encounterSt. [facility] Evaluation note* Diagnosis Onset Date Resolution Status [...] 2:49amPre-operative cardiovascular examinationacuteAu2024 2:49amPsoriasisacuteAugust 2024 2:49amRadius distal fractureacuteAuchristus [facility]20[facility] 2:49amType 2 diabetes mellitus with diabetic chronic kidney disease acuteAu2024 2:49amCOPD (chronic obstructive pulmonary disease)chronic December 23, 2024 2:49amDiabeteschronicAugust 2024 2:49am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chronicAugu2024 2:49amGERD (gastroesophageal reflux disease)chronicDecember 23, 2024 2:49amHypertensionchronicAugust 2024 2:49am [facility] Work Phone: 1(369) 801-120508-27-2025 Evaluation note* Diagnosis Onset Date Resolution Status [...] disease acuteAugus2024 2:49amCOPD (chronic obstructive pulmonary disease)chronic Thomson 2024 2:49amDiabeteschronicAugust 2024 2:49am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chronicAugust 2024 2:49amGERD [...] 4:06pmGERD (gastroesophageal reflux disease)chronicSept2024 4:06pmHypertension chronicSept2024 4:06pm [facility] Work Phone: 1(864) 772-470408-27-2025 Evaluation note* Diagnosis Onset Date Resolution Status [...] disease acuteAu2024 2:49amCOPD (chronic obstructive pulmonary disease)chronic Thomson 2024 2:49amDiabeteschronicAugust 2024 2:49am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chronicAugust 2024 2:49amGERD [...] 2024 10:59amOther specified postprocedural statesnoneactiveOctober 2024 10:59am [facility] Work Phone: 1(259) 854-172010-31-2024 Evaluation + Plan note* Assessment & Plan Note - Nima Lee MD - 02/27/2024 11:44 AM EDTAssociated Problem(s): Critical limb ischemia of left lower extremity with gangrene (CMS-HCC) PVR [facility]10-31-2024 Miscellaneous Notes* Assessment & Plan Note - Nima Lee MD - 02/27/2024 11:44 AM EDTAssociated Problem(s): Critical limb ischemia of left lower extremity with gangrene (CMS-HCC) PVR documented in this encounterSt. [facility]10-[facility] History of Present illness Narrative* Nima Lee [...] musculoskeletal pain COPD (chronic obstructive pulmonary disease) ([facility] Diabetes mellitus ([facility] Fracture, clavicle History of MRSA (methicillin resistant Staphylococcus aureus) Neuropathy Renal failure Dialysis since 04/2014 Past Surgical History: Past Surgical History: Procedure Laterality Date APPENDECTOMY CHOLECYSTECTOMY DIALYSIS FISTULA CREATION Right arm INJECTION CAUDAL EPIDURAL WITH CATHETER, STEROID N/A 06/05/2019 Performed by Jefferson Bryant MD at [facility] PA[facility] TOE AMPUTATION Right 5th TONSILLECTOMY Social [...] Plan PVR 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 Diagnoses and all [...] you for your understanding. documented in this encounterSt. [facility]04-24-2023 NotePROCEDURE: XR FOOT LT MIN 3 VIEWS [...] Electronically authenticated by: PRISCA SANDERSON Date: 2022-08-20 13:00[facility]04-19-2023 NoteEXAM: XR CHEST 2 V HISTORY: [...] Electronically authenticated by: CHINO VENEGAS Date: 2022-08-15 15:06[facility]04-05-2023 NotePROCEDURE: XR FOOT LT MIN 3 [...] Electronically authenticated by: JAMESON SALGUERO Date: 2022-08-01 07:49[facility]11-03-2022 NoteCONSULTATION CONSULTATION DATE: 03/01/2022 This is [...] with certain activities such as standing, walking, core checker and evening hours, and changes in the [...] patient agrees with the plan of care.[facility] [id number] NoteCONSULTATION PROCEDURE DATE: 03/01/2022 PREOPERATIVE DIAGNOSIS: Right [...] fan-like pattern and patient tolerated procedure well.[facility] [id number] NotePROCEDURE: XR ANKLE LT MIN 3 V, [...] authenticated by: PRISCA SANDERSON Date: 2021-12-22 10:12[facility] [id number] NotePROCEDURE: XR ANKLE LT MIN 3 V, [...] Electronically authenticated by: PRISCA SANDERSON Date: 2021-12-22 10:[facility]08-26-2022 NotePROCEDURE: XR ANKLE LT MIN 3 [...] Electronically authenticated by: PRISCA SANDERSON Date: 2021-12-22 10:[facility]08-26-2022 NotePROCEDURE: XR ANKLE LT 2V HISTORY: Pain ; left ankle external fixation application COMPARISON: None. FINDINGS: BONES:3 intraoperative spot fluoroscopic images demonstrate external fixation device surrounding the left ankle. IMPRESSION: External fixation device application. Electronically authenticated by: PRISCA SANDERSON Date: 2021-12-22 10:[facility]08-16-2022 NotePROCEDURE: XR FOOT LT MIN 3 [...] Electronically authenticated by: PRISCA SANDERSON Date: 2021-12-12 08:[facility]08-04-2022 NoteCONSULTATION The patient returns to the [...] up in clinic in three months' time.[facility] [id number] NoteCONSULTATION CONSULTATION DATE: 11/22/2021 HISTORY OF PRESENT [...] return to the clinic to receive those.[facility] [id number] NotePROCEDURE: XR FOOT LT MIN 3 VIEWS [...] authenticated by: PRISCA SANDERSON Date: 2021-11-14 15:42[facility] [id number] NotePROCEDURE: XR FOOT LT MIN 3 VIEWS [...] authenticated by: JAMESON SALGUERO Date: 2021-11-07 19:28[facility] [id number] Evaluation note* Encounter Date Diagnosis Assessment Notes [...] takes midodrine as well as stated above. [facility] Other 03-27-2021 NoteMR#: [id number] [facility] Pt. Name: Rashard Lyman Admitted: 07/13/2020 [...] chest pain. Also, there is mention on [place] records of large inferior/lateral wall abnormality in [...] ON DISCHARGE: A (more content not included)...The [facility]03-19-2021 NoteMR#: [id number] [facility] Pt. Name: Rashard Lyman Surgery Date: 07/14/2020 Room #: [id number] Date of : 1960 PROCEDURE NOTE ATTENDING: [...] Pham MD Date Trans: 07/15/2020 01:32 P/ [id number] cc: Nima Wynne MD [address] [place], [place] [address] [address] NoteMR#: [id number] [facility] Pt. Name: Rashard Lyman Surgery Date: 07/14/2020 Room #: [id number] Date of : 1960 PROCEDURE NOTE ATTENDING: Nima Wynne MD Procedure: Left sided US guided Thoracentesis Pre-procedure Diagnosis: Left pleural effusion Post-procedure Diagnosis: same as above Prior to Procedure: Informed Consent:The risks, benefits, indications, potential complications, and alternatives were explained to the patient/family and informed consent obtained Attending Staff: Nima Wynne Resident/Fellow/EMPLOYEE RELATIONS CONSULTANT: Davis Pham Indications: Nura Munoz is 60 [...] Wynne MD Date Trans: 07/15/2020 12:53 P/ [id number] [facility]Evaluation [facility]* Diagnosis Onset Date Resolution Status Hyperglycemia acutePneumoniaacutePsoriasisacuteType 2 diabetes mellitus with diabetic chronic kidney diseaseacuteCKD (chronic kidney disease) stage 4, GFR 15-29 ml/minchronic COPD (chronic obstructive pulmonary disease)chronic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 chronicGERD (gastroesophageal reflux disease)chronicObesities, morbidchronic Peripheral vascular occlusive diseasechronicStatus post amputation of toe of right footchronic [facility]* Diagnosis Onset Date Resolution Status MARISOL (acute kidney injury) acuteAnemia of renal diseaseacuteAtelectasis of left lungacuteFibrothoraxacute History of pleural effusionacuteMetabolic acidosisacutePericarditisacute Pleuritic chest painacutePsoriasisacuteType 2 diabetes mellitus with diabetic chronic kidney diseaseacuteCKD (chronic kidney disease) stage 4, GFR 15-29 ml/minchronicCOPD (chronic obstructive pulmonary disease)chronic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chronicGERD (gastroesophageal reflux disease)chronicHypertension [id number], morbidchronicPeripheral vascular occlusive diseasechronicStatus post amputation of toe of right footchronic [facility]* Diagnosis Critical limb ischemia of left lower extremity with gangrene ([facility] Primary [facility] encounter [facility] noteNo assessment information available [facility] Work Phone: Evaluation note* Diagnosis Critical limb ischemia of left lower extremity with gangrene ([facility] Primary Unspecified trochanteric fracture of right femur, subsequent encounter for closed fracture with routine healing- Primary Chronic obstructive pulmonary disease, unspecified COPD type ([facility]) End stage renal disease ([facility]) End stage renal disease Dependence on renal dialysis Renal dialysis status Peripheral vascular disease, unspecified Acquired absence of left foot ([facility]) Acquired absence of right foot ([facility]) Type 2 diabetes mellitus with diabetic neuropathy, with long-term current use of insulin ([facility]) Hyperlipidemia, unspecified hyperlipidemia type Gastroesophageal reflux disease, unspecified whether esophagitis present Psoriasis, unspecified documented in this encounter [facility]* Diagnosis Critical limb ischemia of left lower extremity with gangrene ([facility] Primary Type 2 diabetes mellitus with diabetic neuropathy, with long-term current use of insulin ([facility])- Primary Unspecified trochanteric fracture of right femur, subsequent encounter for closed fracture with routine healing Nausea Nausea alone Acquired absence of left foot (CMS-HCC) Acquired absence of right foot ([facility]) End stage renal disease ([facility]) End stage renal disease documented in this encounter [facility]* Diagnosis Critical limb ischemia of left lower extremity with gangrene ([facility] Primary Unspecified trochanteric fracture of right femur, subsequent encounter for closed fracture with routine healing- Primary Type 2 diabetes mellitus with diabetic neuropathy, with long-term current use of insulin ([facility]) End stage renal disease ([facility]) End stage renal disease Acquired absence of right foot ([facility]) Acquired absence of left foot ([facility]) documented in this encounter [facility]* Diagnosis Critical limb ischemia of left lower extremity with gangrene ([facility])- Primary Type 2 diabetes mellitus with diabetic neuropathy, with long-term current use of insulin ([facility])- Primary End stage renal disease ([facility]) End stage renal disease Dependence on renal dialysis Renal dialysis status Hemodialysis-associated hypotension Hypotension of hemodialysis documented in this encounter [facility]* Diagnosis Critical limb ischemia of left lower extremity with gangrene ([facility] Primary Type 2 diabetes mellitus with diabetic neuropathy, with long-term current use of insulin ([facility])- Primary End stage renal disease ([facility]) End stage renal disease Hemodialysis-associated hypotension Hypotension of hemodialysis Acquired absence of left foot ([facility]) Acquired absence of right foot ([facility]) documented in this encounter [facility] SystemHistory general Narrative - Reported* Type Description Date Medical History ESRD Medical HistoryMOMedical HistoryHTNMedical HistoryDMMedical HistoryCOPDMedical HistoryAllergic reaction to Vicryl Sutures use Monofilament suturesMedical HistoryLOW BACK PAIN/ HAIRLINE FRACTURESurgical HistoryDialysis catheter placementsSurgical HistoryRight 5th toe tgwxuyrxvq28/2015Surgical History Creation rigth radiocephalic AVF06/2014Surgical HistoryRevision right Maged AVF by transposition of cephalic vein to subcuticular position/fistulogram/balloon angioplasty cephahlic vein inflow siqlpoof23/2015Surgical Historyall toes removed from left footSurgical HistoryappendectomySurgical Historygall bladder removedSurgical HistoryLEFT FOOT WOUND AND AMPUTATION OF ALL [id number] HistoryINJECTIONS IN HIS LOWER BACKHospitalization Historysee above [facility] Other Hospital Discharge instructions Additional Instructions You are scheduled for an outpatient follow up ECHOCARDIOGRAM in 2 weeks at [facility] to re-assess your pericardial effusions [...] knee Educate on high risk fall precautions [facility] Discharge instructionsV[facility]trHospital Discharge instructionsV[facility] InstructionsNot on filedocumented in this encounterFisher[facility] InstructionsNot on filedocumented in this encounterFisher[facility] InstructionsNot on filedocumented in this encounterFisher[facility] InstructionsNot on filedocumented in this encounterFisher-[facility] SystemReason for referral (narrative)No reason for referral information availableVeterans Health [facility] Ctr Work Phone: Assessments No Assessments Information [...] 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 GERD (gastroesophageal reflux disease) Hypertension [id number] Obesities, morbid Peripheral vascular occlusive disease Status [...] 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 GERD (gastroesophageal reflux disease) Hypertension [id number] Obesities, morbid Peripheral vascular occlusive disease Status [...] 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 GERD (gastroesophageal reflux disease) Hypertension [id number] Obesities, morbid Peripheral vascular occlusive disease Status [...] cardiovascular examination December 23, 2024 2:49am Psoriasis Thomson 27th, 2025 2: 49am Radius distal fracture [...] and content) DATE CREATED AUTHOR 09/11/[address] [facility] DATE CREATED AUTHOR AUTHOR'S ORGANIZ ATION 10/21/2020 [facility] DATE CREATED AUTHOR AUTHOR'S ORGANIZ ATION 10/05/2022 [facility] DATE CREATED AUTHOR AUTHOR'S ORGANIZ ATION 06/03/2023 [facility] DATE CREATED AUTHOR AUTHOR'S ORGANIZ ATION 11/22/2023 [facility] DATE CREATED AUTHOR AUTHOR'S ORGANIZ ATION 02/18/2024 [facility] DATE CREATED AUTHOR AUTHOR'S ORGANIZ ATION 02/13/2025 [facility] Goals (unrecognized section and [...] ProviderActiveStart: December 30, 2024 Alyssia Jacobo , PRESS OFFBEARER-COther ProviderActiveStart: December 30, 2024 Nima Lee MDOther [...] ProviderActiveStart: December 30, 2024 Patricia Carmona , PRESS OFFBEARER-[employer]ther ProviderActiveStart: December 30, 2024 Nick Jerez , [...] ProviderActiveStart: December 30, 2024 Elizabeth Monroe , PRESS OFFBEARER-[employer]ther ProviderActiveStart: December 30, 2024 Carie Abraham MDOther [...] ProviderActiveStart: January 06, 2025 Patricia Carmona , PRESS OFFBEARER-[employer]ther ProviderActiveStart: January 06, 2025 Nick Jerez , [...] , DOOther ProviderActiveStart: January 13, 2025 Dinesh eCrvantes MDOther ProviderActiveStart: January 13, 2025 Eugene Morel , DOOther ProviderActiveStart: January 13, 2025 Enrique Yang MDOther ProviderActiveStart: January 13, 2025 Liaz Rod MDOther ProviderActiveStart: January 13, 2025 Bryan [...] ProviderActiveStart: January 13, 2025 Patricia Carmona , PRESS OFFBEARER-[employer]ther ProviderActiveStart: January 13, 2025 Nick Jerez , [...] ProviderActiveStart: December 23, 2024 Alyssia Batista , PR[employer] OFFBEARER-[employer]ther ProviderActiveStart: December 23, 2024 Nima Lee MDOther [...] ProviderActiveStart: December 30, 2024 Alyssia Batista , PRESS OFFBEARER-[employer]ther ProviderActiveStart: December 30, 2024 Nima Lee MDOther [...] MemberRelationshipSpecialtyStart DateEnd Date Jose Juarez Jr., DO [address] [place] [id number] PCP - GeneralInternal Uujvuwcs96/15/17 Team Status: Inactive Member Role Status Dates Chino Elliott DPM MS Attending Provider Active Start: August 28, 2024 End: August 28, 2024Team MemberRelationshipSpecialtyStart DateEnd Date Jose Juarez Jr., DO [address] [place] [id number] PCP - GeneralInternal Knbipell92/15/17Team MemberRelationshipSpecialtyStart Date End Date Jose Juarez Jr., DO [address] [place] [id number] PCP - GeneralInternal Dvcvdrml31/15/17Team MemberRelationshipSpecialtyStart Date End Date Jose Juarez Jr., DO [address] [place] [id number] PCP - GeneralInternal Ygmaeqiu29/15/17Team MemberRelationshipSpecialtyStart Date End Date Jose Juarez Jr., DO [address] [place] [id number] PCP - GeneralInternal Hbeqgfui36/15/17Team MemberRelationshipSpecialtyStart Date End Date Jose Juarez MD [address] [place] [address] [id number] PCP - GeneralInternal Medicine09/07/24Team MemberRelationshipSpecialtyStart Date End Date Jose Juarez Jr., DO [address] [place] [address] [id number] PCP - GeneralInternal Viawxlvo78/15/17 FOR RECORDS PERTAINING TO PATIENTS WHO ARE [...] BE BASED ON THE PRIMARY CLINICAL RECORDS. [facility] [employer] [facility]. provides no warranty or guarantee of the accuracy or completeness of information in this document.
--- NOTE | 2025-04-08 09:40 | CT_ITS ---
The [address] [address] Patient Name: RASHARD TAN MRN: [id number] date: 1960 Sex: M Assigned Patient Location: CT Current Patient Location: CT Accession/Order Number: [id number] Exam Date: 04/08/2025 09:47 Report Date: 04/08/2025 10:21 At the request of: THOMAS SHARP DO Procedure: CT hip RT wo con CT RIGHT HIP WITHOUT CONTRAST WITH 3-D RECONSTRUCTIONS COMPARISON: Plain films 03/15/2025 CLINICAL DATA: Follow-up intertrochanteric hip fracture. Spiral axial unenhanced images were obtained through the right hip. Sagittal, coronal and 3-D volume rendered reconstructions were reviewed. This CT exam was performed using one or more following dose reduction techniques: Automated exposure control, adjustment of the mA and/or kV according to patient size, or use of iterative reconstruction technique. The bony structures are osteopenic. There is a comminuted intertrochanteric right hip fracture. Mild displacement is present, particularly involving smaller fragments at the trochanters. There is a dynamic hip screw with short intramedullary melissa. The posterior end of the screw extends at least 15 mm beyond the lateral cortex of the femur. The tip of the screw is at the fovea. These findings correlate with the recent plain films. There is no significant change in overall alignment. There are small bony densities anterior to the femoral head of uncertain donor site though possibly related to the surgical procedure. These are not readily apparent on the single view comparison plain films. There is no hip dislocation. The hip joint space is maintained. There is subtle subchondral sclerosis at the weightbearing femoral head. There is no sizable joint effusion or prominent soft tissue hematoma. Atherosclerotic disease is seen within the pjtam-ld-xvqf. CT/CT hip RT wo con IMPRESSION: COMMINUTED INTERTROCHANTERIC RIGHT HIP FRACTURE STATUS POST INTERNAL FIXATION, DESCRIBED. Impression dictated by: Chitra Brantley M.D. 04/08/2025 10:21 AM Dictation Location: [place] [address] Electronically authenticated by: [id number] Y Date: 04/08/2025 10:21
== END 2025-04-08 09:29 | disposition home or self-care (01) ==
LOC: CT 09:29
PROVIDERS: PCP Internal Medicine; Visit Provider Orthopaedic Surgery Orthopaedic Trauma
DX: S72.141D Displaced intertrochanteric fracture of right femur, subsequent encounter for closed fracture with routine healing (principal); Z98.890 Other specified postprocedural states
CPT/HCPCS: 73700; 76376